=== PATIENT | male | born 1945 | race Caucasian/White ===

== ENCOUNTER 2021-08-12 08:19 | Day surgery (SDC) | payer MEDICARE, SELFPAY ==
--- NOTE | 2021-08-12 | LES_PTH ---
PATIENT: SERENA ARMANDO LOC: [facility] [place] U#:[id number] AGE/SX: 75/M ROOM: RE08/12/[address]: Dr. Kerwin Tamayo MD : [id number] BED: DIS: 08/12/2021 SPEC #: [id number] RECD: 08/12/21 10:46 STATUS: MILLI RELinda #: [id number] CHRISTAL: 08/12/21 00:[address]: Kerwin Tamayo DEPT: SURGICAL PATHOLOGY RECD BY: Lizzette Arteaga ENTERED: 08/12/21 11:40 SP TYPE: Lesion OTHR DR: Dr. Tj Mirza MD Tissues: Skin of external ear, NOS Procedures: Frozen Section (charge) Surgery Specimen Level IV HEADER OPERATION: Excision ear lesion PRE-OP DIAGNOSIS: Cutaneous squamous cell carcinoma TISSUE SUBMITTED: Left ear lesion, frozen section FROZEN SECTION DIAGNOSIS Left ear lesion, biopsy: Actinic keratosis with severe atypia, excised. AM:sarah 08/12/2021 Case has been reviewed in consultation with Dr. Cabral who concurs with the above diagnosis. IDC:SJ MICROSCOPIC DIAGNOSIS Left ear lesion, excisional biopsy: Actinic keratosis with severe atypia with focal verrucous features, completely excised. Solar elastosis. HUDSON:sarah 08/13/2021 MICROSCOPIC DESCRIPTION Slides are reviewed. GROSS DESCRIPTION Received fresh for frozen section consultation labeled with the patient's name is a specimen designated left ear lesion. The specimen consists of a discoid fragment of danielle tissue measuring 1.5 x 1.5 x 0.2 cm. The specimen is oriented. The superior half is inked in black ink and the inferior half is inked in blue ink. The specimen is serially sectioned and totally submitted in one block for frozen section consultation. / AM:sarah 08/12/21 TC:5 CPT: 30576, 15132
--- NOTE | 2021-08-12 08:32 | EKG12_ITS ---
Test Reason : PRE OP Blood Pressure : / mmHG Vent. Rate : 073 BPM Atrial Rate : 073 BPM P-R Int : 146 ms QRS Dur : 074 ms QT Int : 414 ms P-R-T Axes : 079 057 056 degrees QTc Int : 456 ms Normal sinus rhythm Normal ECG No previous ECGs available Confirmed by JACQUI URIBE, VIK ([id number]), development editor BLANCO BOCANEGRA ([id number]) on 08/20/2021 10:07:39 AM Referred By: Edison Tamayo Confirmed By:VIK OSMAN MD
[2021-08-12 09:11] VITALS: BP 179/63; PULSE 71; RESP 18; TEMP 36.9; O2SAT 100; BMI 25.3
[2021-08-12 09:22] LABS: Anion Gap 10 (5-15); BUN 18 mg/dL (7-18); Calcium,Total 9.7 mg/dL (8.5-10.1); Chloride 101 mmol/L (98-107); Creatinine, Serum 1.29 mg/dL (0.70-1.30); EST Glomerular Filtration Rate 57 mL/min (>60); Est Glom Filt Rate - Afr Amer 69 mL/min (>60); Estimated Creatinine Clearance 44.84 ml/min; Glucose 289 mg/dL (74-106); Sodium Level 139 mmol/L (136-145)
[2021-08-12] MEDS: Lactated Ringers 1,000 ML 100 ML IV (09:29)
--- NOTE | 2021-08-12 10:21 | PCM.OPRPT ---
Problems Associated Problem List Diagnoses (1) Nasal congestion: (2) Nasal septal deviation: (3) Acquired deformity of nose: (4) Nasal turbinate hypertrophy: Report of Operation Date of Procedure: 08/12/21 Pre-Operative Diagnosis: 1. nasal congestion 2. nasal septal deviation 3. acquired deformity of nose 4. inferior turbinate hypertrophy, right and left Post-Operative Diagnosis: 1. nasal congestion 2. nasal septal deviation 3. acquired deformity of nose 4. inferior turbinate hypertrophy, right and left Surgery/Procedure Performed:: 1. open septorhinoplasty 2. submucous resection inferior turbinates, right and left Surgeon: Edison Tamayo Type of Anesthesia: General/Supplemental
--- NOTE | 2021-08-12 10:24 | PCM.OPRPT ---
Problems Associated Problem List Diagnoses (1) Squamous cell carcinoma of skin of ear: Report of Operation Date of Procedure: 08/12/21 Pre-Operative Diagnosis: 1. cutaneous squamous cell carcinoma, left ear Post-Operative Diagnosis: 1. cutaneous squamous cell carcinoma, left ear Surgery/Procedure Performed:: 1. excision helical carcinoma, left ear 2 x 1 cm 2. full thickness skin graft, left neck to ear, 2.5 x 1.5 cm Surgeon: Edison Tamayo Type of Anesthesia: General/Supplemental Description of Procedure: on the day of the procedure, after appropriate informed consent was obtained, the patient was brought to the operating room and placed in supine position on the operating table. he was placed under general endotracheal anesthesia by the anesthesiologist. the left ear and neck were prepped and draped in sterile fashion, and injected with lidocaine/epinephrine. a circumferential excision was made around the posterior and superior helical mass with a chehalis blade - this included 3mm margins given the initial biopsies were actinic keratosis with atypia. this was sent to pathology and returned the same diagnosis, fully excised. the defect was roughly 2 x 2 cm. the area around the incision was undermined with an iris scissor. an elliptical incision was made in the low left neck transversely in a crease. a 2.5 x 1.5 cm full thickness skin graft was taken and pie crusted with a 15 blade. the donor site was undermined and closed using 4-0 vicryl and 5-0 fast gut. the graft was sutured into the ear defect using 4-0 vicryl and 5-0 fast gut including several through and through sutures. a bolster was placed. he was awoken from anesthesia and transferred to the PACU in stable condiion.
[2021-08-12] MEDS: Lidocaine 1% /Epi 1:100 (20ml) 20 ML Vial (10:34)
[2021-08-12] MEDS: Mupirocin Ointment 22gm Tube 1 APPLIC (10:58)
--- NOTE | 2021-08-12 11:40 | PCM.DC ---
Discharge Instructions Diet Discharge Diet: No restrictions Activity Discharge Activity: Return to Normal Activity Dressing / Incision Additional Dressing/Incision Instructions:: keep the white bolster dry. mupirocin to neck incision twice daily. Follow Up Care Please Follow Up With: Edison Tamayo MD When: 1 week Test Results: Test results from this visit will be discussed in further detail at your follow-up appointment, if applicable. Discharge Plan Admission Attending Provider: Edison Tamayo Primary Care Provider: Tj Mirza Discharge Orders/Prescriptions Prescriptions: No Action aspirin [Aspir-81] 81 mg Tablet,Delayed Release (Dr/Ec) 81 mg PO DAILY RF: 0 tamsulosin [Flomax] 0.4 mg Capsule 0.4 mg PO QHS RF: 0 amlodipine [Norvasc] 10 mg Tablet 10 mg PO 1200 RF: 0 quinapril-hydrochlorothiazide 20-12.5 mg Tablet 1 tab PO DAILY RF: 0 insulin lispro [Humalog Pen] 100 unit/mL Insulin Pen 0 unit SUBCUT TID RF: 0 Lantus Solostar U-100 Insulin 100 unit/mL (3 mL) Insulin Pen 18 unit SUBCUT QPM RF: 0 Disposition Discharge Orders: Discharge Patient (Routine); Ordered 08/12/21 Ordered By: Dr. Edison Tamayo
[2021-08-12 11:45] VITALS: BP 157/55; BP 179/63; PULSE 79; RESP 16; TEMP 36.1; O2SAT 95
[2021-08-12 12:00] VITALS: BP 153/62; BP 179/63; PULSE 81; RESP 18; O2SAT 93
[2021-08-12 12:15] VITALS: BP 155/58; BP 179/63; PULSE 82; RESP 16; O2SAT 93
[2021-08-12 12:23] VITALS: BP 140/55; BP 179/63; PULSE 79; RESP 18; TEMP 36.1; O2SAT 94
[2021-08-12 12:45] LABS: Bedside Glucose 304 mg/dL (70-110)
[2021-08-12 13:04] VITALS: BP 144/61; BP 179/63; PULSE 75; RESP 16; TEMP 36.4; O2SAT 95
[2021-08-12 16:56] LABS: Bedside Glucose 344 mg/dL (70-110)
== END 2021-08-12 13:16 | disposition home or self-care (01) ==
LOC: SDC 08:24 → AC 08:26
PROVIDERS: PCP Family Medicine; Referring Provider Otolaryngology; Visit Provider Otolaryngology
PROC: (CPT 15004; principal; 2021-08-12 09:45)
DX: L57.0 Actinic keratosis (principal); I10 Essential (primary) hypertension; E11.9 Type 2 diabetes mellitus without complications; F17.210 Nicotine dependence, cigarettes, uncomplicated; Z79.4 Long term (current) use of insulin; Z79.82 Long term (current) use of aspirin; Z79.899 Other long term (current) drug therapy
CPT/HCPCS: 00300; 15004; 15240; 80048; 82962; 88305; 88331; 93005; J7120; J2405

== ENCOUNTER → 2023-10-22 | Outpatient (CLI) | payer MEDICARE, SELFPAY ==
[2023-10-22 17:18] LABS: Hematocrit 38.7 % (40-54); Hemoglobin 12.3 g/dL (13.0-16.5); Mean Corp Hgb Conc 31.8 g/dL (32-36); Mean Corpuscular Hgb 29.6 pg (27.0-32.0); Mean Platelet Vol. 11.6 fl (6.2-12.0); Platelet Count 304 K/mm3 (150-450); RBC Distribution Width SD 44.3 fl (35.1-43.9); Red Blood Count 4.16 M/mm3 (4.6-6.2); White Blood Count 9.1 K/mm3 (4.4-11.0)
[2023-10-22 17:49] LABS: Anion Gap 2 (5-15); BUN 43 mg/dL (7-18); BUN/Creat Ratio 20.9 RATIO (10-20); Calcium,Total 9.1 mg/dL (8.5-10.1); Chloride 111 mmol/L (98-107); Creatinine, Serum 2.06 mg/dL (0.70-1.30); EST Glomerular Filtration Rate 33 mL/min (>60); Est Glom Filt Rate - Afr Amer 40 mL/min (>60); Glucose 120 mg/dL (74-106); Potassium 4.7 mmol/L (3.5-5.1); Sodium Level 140 mmol/L (136-145)
== END | disposition home or self-care (01) ==
LOC: MFPLAB 14:51
PROVIDERS: PCP Family Medicine; Visit Provider Nurse Practitioner Family
DX: I10 Essential (primary) hypertension (principal)
CPT/HCPCS: 36415; 80048; 85027

== ENCOUNTER → 2023-11-17 | Outpatient (CLI) | payer MEDICARE, SELFPAY ==
--- NOTE | 2023-11-17 10:08 | RAD_ITS ---
HISTORY: Productive cough. TECHNIQUE: XR Chest 2 Views. COMPARISON: None. FINDINGS: CARDIOMEDIASTINAL BORDERS: Cardiac silhouette within normal limits in size. Mediastinal contour unremarkable with calcification of the aortic knob. LUNGS: Hyperinflated with mild right apical scarring, suggesting COPD. Mild bilateral lower lobe opacities. PLEURA: Mild pleural effusions. OSSEOUS STRUCTURES: Degenerative change. RAD/Chest PA and Lateral IMPRESSION: Mild pleural effusions with bibasilar atelectasis or pneumonia. Electronically Signed: Sallie Fitzgerald MD at 10:31 EST ,
== END | disposition home or self-care (01) ==
PROVIDERS: PCP Family Medicine; Referring Provider Family Medicine; Visit Provider Family Medicine
DX: R05.8 Other specified cough (principal)
CPT/HCPCS: 71046

== ENCOUNTER → 2023-11-25 | Outpatient (CLI) | payer MEDICARE, SELFPAY ==
--- NOTE | 2023-11-25 12:10 | RAD_ITS ---
HISTORY: productive cough. TECHNIQUE: XR Chest 2 Views. COMPARISON: 11/17/2023. FINDINGS: CARDIOMEDIASTINAL BORDERS: Cardiac silhouette within normal limits in size. Mediastinal contour unremarkable with calcification of the aortic knob. LUNGS: Increased linear opacities in the lung bases. PLEURA: Increased mild pleural effusions. OSSEOUS STRUCTURES: Degenerative change. RAD/Chest PA and Lateral IMPRESSION: Increased mild bilateral pleural effusions with increased bibasilar atelectasis or inflammation. Electronically Signed: Sallie Fitzgerald MD at 13:06 EST ,
--- OUTSIDE RECORDS SUMMARY | 2023-11-25 12:19 | XMS RPT_ITS | CCD ---
Author Name Unknown Address [address] [facility] [address] [place] [address] Organization [facility] Care Team Providers Care Binding End Stitcher Name Role Phone Nancy Mirza Unavailable Unavailable Nancy Mirza Unavailable Unavailable Nancy Mirza Unavailable Unavailable Unavailable Primary Care Provider Nancy Calles Primary Care Provider Nancy Mirza Primary Care Provider Nancy Mirza Primary Care Provider Nancy Hilliard MD Primary Care Provider [phone] Nancy Mirza MD Primary Care Provider Nancy Mirza MD Primary Care Provider Nancy Mirza MD Primary Care Provider Nancy Mirza Unavailable Nancy Mirza MD Primary Care Provider PATY ORTEGA Attending PATY Araiza Referring NANCY Ruelas Primary Care Unavailable Yuki, Dr. Nancy Key Attending Unavaila ian Mirza, Dr. Nancy Key Primary Care Unavaila ble Yuki, Dr. Nancy Key Attending Unavaila ble Yuki, Dr. Nancy Key Primary Care Unavaila ble Yuki, Dr. Nancy Key Attending Unavaila ian Mirza, Dr. Nancy Key Primary Care Unavaila ble Yuki, Dr. Nancy Key Attending Unavaila ian Mirza, Dr. Nancy Key Primary Care Unavaila ble Yuki, Dr. Nancy Key Attending Unavaila ble Yuki, Dr. Nancy Key Primary Care Unavaila ble Tomeleazar, Dr. Nancy Key Primary Care Unavaila ble Tomeleazar, Dr. Nancy Key Attending Unavaila ble Tomeleazar, Dr. Nancy Key Attending Unavaila ble Tomeleazar, Dr. Nancy Key Primary Care Unavaila ble Tomeleazar, Dr. Nancy Key Attending Unavaila ble Tomeleazar, Dr. Nancy Key Primary Care Unavaila ble Yuki, Dr. Nancy Key Primary Care Unavaila ble Tomeleazar, Dr. Nancy Key Attending Unavaila ble Juanito, Dr. Obed العراقي Attending Unavail able Tomeleazar, Dr. Nancy Key Primary Care Unavaila ble Tomeleazar, Dr. Nancy Key Attending Unavaila ble Yuki, Dr. Nancy Key Primary Care Unavaila ian Mirza MD, Nancy Isbell Primary Care Provider OBED ALBERT Attending Unavailable NANCY MIRZA Primary Care Unavailable NANCY MIRZA Primary Care Unavailable NANCY MIRZA Primary Care Unavailable Ryley Jeter MD Primary Care Provider Dr. Obed Albert Attending Unavail able TRISTAN ORTEGA Referring Unava ilable NANCY MIRZA [facility] Care Unavailable NANCY MIRZA Primary Care Unavailable PRAFUL RESENDIZ Admitting Unavailable OBED ALBERT Consulting Unavailable OFE BA Attending Unavailable PATY ORTEGA Attending Unavailab NANCY Shah Primary Care Unavailable MARY YAN Attending Unavailable NANCY MIRZA Primary Care Unavailable MARY YAN Attending Unavailable NANCY MIRZA Primary Care Unavailable NANCY MIRZA Primary Care Unavailable MARY YAN Attending Unavailable PATY ORTEGA Attending Unavailab NANCY hSah Primary Care Unavailable RYLEY JETER Primary Care Unavailable MAYI SMALL Attending Unavailable MARY YAN Referring Unavailable MARY YAN Admitting Unavailable RYLEY JETER Primary Care Unavailable MARY YAN Attending Unavailable PATY ORTEGA Attending Unavailab NANCY Shah Primary Care Unavailable Allergies Allergy Classification Reported Allergen(s) Allergy Type Date of Onset Reaction(s) Facility HMG-CoA Reductase Inhibitors (statins) (3 sources) Hmg-Coa Reductase Inhibitors (Statins) Drug Allergy 6 [facility] (18 sources) Hmg-Coa Reductase Inhibitors (Statins); Translations: [[id number] REDUCTASE INHIBITORS] Propensity to adverse reactions to drug 6 [facility] Work Phone: (6 sources) HMG-CoA reductase inhibitor Propensity to adverse reactions to drug 6 [facility] (11 sources) HMG-CoA reductase inhibitor Propensity to adverse reactions to drug 6 Unknown [facility] (3 sources) predniSONE; Translations: [predniSONE TABS] Drug Allergy 3 [facility] (3 sources) predniSONE; Translations: [PREDNISONE] Drug Allergy 3 [facility] 3 Repository (1 source) ALLERGIES NOT ON FILE; Translations: [ALLERGIES NOT ON FILE] Propensity to adverse reactions (disorder) [facility] Repository Medications Current Medications Medication Drug Class(es) Dates Sig (Normalized) Sig (Original) Acetaminophen (8 sources) Start: 10-11-2023 take 1 tablet by mouth every four hours as needed acetaminophen (Tylenol) tablet 650 mg Completed/Discontinued Medications Medication Drug Class(es) Dates Sig (Normalized) Sig (Original) albuterol 0.83 mg/ml inhalation solution (1 source) beta2-Adrenergic Agonist Start: 10-11-2023 End: 10-11-2023 albuterol 2.5 mg /3 mL (0.083 %) nebulizer solution 2.5 mg azithromycin 250 mg oral tablet (1 source) Macrolide Antimicrobial Start: 10-12-2023 End: 10-13-2023 azithromycin (Zithromax) tablet 500 mg azithromycin (Zithromax) in dextrose 5 % in water (D5W) 250 mL IV 500 mg (2 sources) Start: 10-12-2023 End: 10-12-2023 azithromycin (Zithromax) in dextrose 5 % in water (D5W) 250 mL IV 500 mg Problems Active Problems Problem Classification Problem Date Documented Da te Episodic/Chronic Chronic kidney disease (10 sources) Chronic kidney disease; Translations: [Chronic kidney disease, unspecified] Onset: 07-30-2023 Chronic Chronic kidney disease (2 sources) Chronic kidney disease; Translations: [Chronic kidney disease, stage 3b (CMS/HCC)] Onset: 08-25-2023 Congestive heart failure; nonhypertensive (10 sources) Acute congestive heart failure; Translations: [Heart failure, unspecified] Onset: 10-11-2023 10-11-2023 Chronic Diabetes mellitus with complications (20 sources) Type 1 diabetes mellitus uncontrolled; Translations: [Diabetic neuropathy] Onset: 03-01-2011 05-19-2016 Chronic Diabetes mellitus without complication (20 sources) Type 1 diabetes mellitus; 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] Onset: 03-01-2011 01-09-2016 Chronic Disorders of lipid metabolism (20 sources) Pure hypercholesterolemia ; Translations: [Pure hypercholesterolemia , unspecified] Onset: 03-01-2011 01-09-2016 Chronic Essential hypertension (20 sources) Essential hypertension; Translations: [Essential (primary) hypertension] Onset: 03-01-2011 01-09-2016 Chronic Genitourinary symptoms and ill-defined conditions (4 sources) Proteinuria, unspecified; Translations: [Proteinuria, unspecified] Onset: 03-13-2019 Episodic Hyperplasia of prostate (1 source) Benign prostatic hyperplasia without lower urinary tract symptoms; Translations: [Benign prostatic hyperplasia without lower urinry tract symp] Onset: 07-30-2023 Chronic Occlusion or stenosis of precerebral arteries (20 sources) Bilateral carotid artery stenosis; Translations: [Occlusion and stenosis of bilateral carotid arteries] Onset: 02-18-2021 Chronic Osteoarthritis (3 sources) Arthritis; Translations: [Arthropathy, unspecified, site unspecified] Onset: 08-24-2023 08-24-2023 Chronic Other and ill-defined heart disease (2 sources) Systolic dysfunction; Translations: [Other ill-defined heart diseases] 10-21-2023 Chronic Other and ill-defined heart disease (2 sources) Other ill-defined heart diseases; Translations: [Other ill-defined heart diseases] Onset: 10-21-2023 Chronic Pneumonia (except that caused by tuberculosis or sexually transmitted disease) (3 sources) Infective pneumonia; Translations: [Pneumonia, unspecified organism] Onset: 10-11-2023 10-11-2023 Episodic Respiratory failure; insufficiency; arrest (adult) (3 sources) Acute respiratory failure; Translations: [Acute respiratory failure with hypoxia] Onset: 10-11-2023 10-11-2023 Episodic Spondylosis; intervertebral disc disorders; other back problems (13 sources) Degeneration of lumbar intervertebral disc; Translations: [Degeneration of lumbar or lumbosacral intervertebral disc] Onset: 01-25-2023 08-24-2023 Chronic Thyroid disorders (20 sources) Thyrotoxicosis; Translations: [Thyrotoxicosis, unspecified without thyrotoxic crisis or storm] Onset: 03-01-2011 05-19-2016 Chronic Unclassified (12 sources) Patient encounter status; Translations: [Prostate cancer screening] Onset: 03-01-2011 10-29-2017 Unclassified (2 sources) Screening status; Translations: [Prostate cancer screening] Onset: 03-01-2011 10-29-2017 Viral infection (3 sources) Disease caused by 2019-nCoV; Translations: [COVID-19] Onset: 10-11-2023 Resolved: 10-13-2023 10-11-2023 Episodic Viral infection (2 sources) COVID-19; Translations: [COVID-19] Onset: 10-11-2023 Past or Other Problems Problem Classification Problem Date Documented Da te Episodic/Chronic Other screening for suspected conditions (not mental disorders or infectious disease) (20 sources) Patient encounter status; Translations: [Encounter for screening for malignant neoplasm of prostate] Onset: 03-01-2011 10-29-2017 Episodic Results Test Name Value Interpretation Reference Range Facil ity Vital Signs Date Time Vital Sign Value Performing Clinician Facility 10-21-2023 08:54-0500 Body height 172.7 cm Mayi Small MD Work Phone: [facility] 10-21-2023 08:54-0500 Body mass index (BMI) [Ratio] 22.61 kg/m2 Mayi Small MD Work Phone: [facility] 10-21-2023 08:54-0500 Body weight 67.45 kg Mayi Small MD Work Phone: [facility] 10-21-2023 08:54-0500 Diastolic blood pressure 67 mm[Hg] Mayi Small MD Work Phone: [facility] 10-21-2023 08:54-0500 Heart rate 65 /min Mayi Small MD Work Phone: [facility] 10-21-2023 08:54-0500 SaO2% (BldA) [Mass fraction] 99 % Mayi Small MD Work Phone: [facility] 10-21-2023 08:54-0500 Systolic blood pressure 128 mm[Hg] Mayi Small MD Work Phone: [facility] 10-13-2023 11:55-0500 SaO2% (BldA) [Mass fraction] 92 % Praful Pineda MD Work Phone: [facility] 10-13-2023 10:39-0500 Heart rate 97 /min Praful Pineda MD Work Phone: [facility] 10-13-2023 09:35-0500 Body height 171.5 cm Praful Pineda MD Work Phone: [facility] 10-13-2023 09:35-0500 Body mass index (BMI) [Ratio] 24.38 kg/m2 Praful Pineda MD Work Phone: [facility] 10-13-2023 09:35-0500 Body weight 71.7 kg Praful Pineda MD Work Phone: [facility] 10-12-2023 20:45-0500 Body temperature 98.1 [degF] Praful Pineda MD Work Phone: [facility] 10-12-2023 20:45-0500 Diastolic blood pressure 85 mm[Hg] Praful Pineda MD Work Phone: [facility] 10-12-2023 20:45-0500 Respiratory rate 16 /min Praful Pineda MD Work Phone: [facility] 10-12-2023 20:45-0500 Systolic blood pressure 123 mm[Hg] Praful Pineda MD Work Phone: [facility] 10-11-2023 03:52-0500 Body temperature 37.0 degrees Celsius [facility] Encounters Encounter Date Encounter Type Care Provider Facility Start: 11-02-2023 Orders Only Mary Ramirez MD Work Phone: [facility] Start: 10-21-2023 End: 10-21-2023 ambulatory RYLEY JETER [facility] Start: 10-21-2023 End: 10-21-2023 Office outpatient new 45 minutes Mary Yan MD Work Phone: [facility] Procedures Date Procedure Procedure Detail Performing Clinician Start: 10-13-2023 Glucose [Mass/volume ] in Serum or Plasma NANCY MIRZA Start: 10-13-2023 Glucose quantitative blood xcpt reagent strip Ofe Rivera MD Work Phone: Start: 10-13-2023 BOOTH CATHETER - DISCONTINUE NANCY MIRZA Start: 10-13-2023 ADULT DISCHARGE DIET DA VINadeem MIRZA Start: 10-13-2023 DISCHARGE ACTIVITY ALVINAdarsh MIRZA Start: 10-13-2023 FOLLOW UP PRIMARY PHYSICIAN NANCY MIRZA Start: 10-13-2023 OTHER FOLLOW UP NANCY SANTIZO Start: 10-13-2023 DISCHARGE PATIENT NANCY MIRZA Start: 10-13-2023 Glucose [Mass/volume ] in Serum or Plasma NANCY MIRZA Start: 10-13-2023 Glucose quantitative blood xcpt reagent strip Ofe Rivera MD Work Phone: Start: 10-13-2023 XR CHEST 1 VIEW NANCY SANTIZO Start: 10-13-2023 Radiologic exam ches t single view Ofe Rivera MD Work Phone: Start: 10-13-2023 Basic metabolic 2000 panel - Serum or Plasma NANCY MIRZA Start: 10-13-2023 CBC W Auto Different ial panel - Blood NANCY MIRZA Start: 10-13-2023 Basic metabolic pane l calcium total Ofe Rivera MD Work Phone: Start: 10-13-2023 Glucose [Mass/volume ] in Serum or Plasma NANCY MIRZA Start: 10-13-2023 Glucose quantitative blood xcpt reagent strip Ofe Rivera MD Work Phone: Start: 10-12-2023 Glucose [Mass/volume ] in Serum or Plasma NANCY MIRZA Start: 10-12-2023 Glucose quantitative blood xcpt reagent strip Ofe Rivera MD Work Phone: Start: 10-12-2023 Glucose [Mass/volume ] in Serum or Plasma NANCY MIRZA Start: 10-12-2023 Glucose quantitative blood xcpt reagent strip Ofe Rivera MD Work Phone: Start: 10-12-2023 Glucose [Mass/volume ] in Serum or Plasma NANCY MIRZA Start: 10-12-2023 TRANSFER PATIENT TO NEW UNIT NANCY MIRZA Start: 10-12-2023 Glucose quantitative blood xcpt reagent strip Ofe Rivera MD Work Phone: Start: 10-12-2023 Glucose [Mass/volume ] in Serum or Plasma NANCY MIRZA Start: 10-12-2023 EXTRA TUBES NANCY MENDOZA Start: 10-12-2023 LIGHT BLUE TOP NANCY PALACIOS Start: 10-12-2023 SST TOP NANCY MENDOZA Start: 10-12-2023 Glucose quantitative blood xcpt reagent strip Praful Pineda MD Work Phone: Start: 10-12-2023 Basic metabolic 2000 panel - Serum or Plasma NANCY MIRZA Start: 10-12-2023 CBC W Auto Different ial panel - Blood NANCY MIRZA Start: 10-12-2023 EXTRA TUBES Praful Pineda MD Work Phone: Start: 10-12-2023 LIGHT BLUE TOP Praful Pineda MD Work Phone: Start: 10-12-2023 SST TOP Praful Pineda MD Work Phone: Start: 10-12-2023 Basic metabolic pane l calcium total Praful Pineda MD Work Phone: Start: 10-12-2023 Glucose [Mass/volume ] in Serum or Plasma NANCY CALHOUNDeven Start: 10-12-2023 Glucose quantitative blood xcpt reagent strip Praful Pineda MD Work Phone: Start: 10-11-2023 Glucose [Mass/volume ] in Serum or Plasma NANCY LJDeven Start: 10-11-2023 Glucose [Mass/volume ] in Serum or Plasma NANCY YUKI Start: 10-11-2023 End: 10-11-2023 Glucose quantitative blood xcpt reagent strip Praful Pineda MD Work Phone: Start: 10-11-2023 Glucose [Mass/volume ] in Serum or Plasma NANCY YUKI Start: 10-11-2023 End: 10-11-2023 Glucose quantitative blood xcpt reagent strip Praful Pineda MD Work Phone: Start: 10-11-2023 Glucose [Mass/volume ] in Serum or Plasma NANCY LEDAMERCYDeven Start: 10-11-2023 Glucose quantitative blood xcpt reagent strip Praful Pineda MD Work Phone: Start: 10-11-2023 Glucose quantitative blood xcpt reagent strip Praful Pineda MD Work Phone: Start: 10-11-2023 Glucose [Mass/volume ] in Serum or Plasma NANCY MIRZA Start: 10-11-2023 Glucose [Mass/volume ] in Serum or Plasma NANCY MIRZA Start: 10-11-2023 End: 10-11-2023 Glucose quantitative blood xcpt reagent strip Praful Pineda MD Work Phone: Start: 10-11-2023 POCT GLUCOSE METER ALVIN Nadeem YUKI Start: 10-11-2023 Glucose [Mass/volume ] in Serum or Plasma NANCY LEDAELEAZAR Start: 10-11-2023 Glucose quantitative blood xcpt reagent strip Praful Pineda MD Work Phone: Start: 10-11-2023 End: 10-11-2023 Glucose quantitative blood xcpt reagent strip Ofe Rivera MD Work Phone: Start: 10-11-2023 TRANSTHORACIC ECHO ( TTE) COMPLETE NANCY LEDAELEAZAR Start: 10-11-2023 Glucose [Mass/volume ] in Serum or Plasma NANCY LJDeven Start: 10-11-2023 Echo tthrc r-t 2d w/wom-mode compl spec&colr d Ofe Rivera MD Work Phone: Start: 10-11-2023 End: 10-11-2023 Glucose quantitative blood xcpt reagent strip rPaful Pineda MD Work Phone: Start: 10-11-2023 FULL CODE NANCY MENDOZA Start: 10-11-2023 MEASURE HEIGHT NANCY PALACIOS Start: 10-11-2023 TELEMETRY MONITORING ALONZO MIRZA Start: 10-11-2023 WEIGH PATIENT NANCY SRINIVASAN Start: 10-11-2023 IP CONSULT TO CARDIOLOGY NANCY MIRZA Start: 10-11-2023 IP CONSULT TO FIRST OFFICER NANCY MIRZA Start: 10-11-2023 INITIATE DROPLET PLU S ISOLATION NANCY MIRZA Start: 10-11-2023 ED TO FLOOR BED REQUEST NANCY MIRZA Start: 10-11-2023 ADMIT TO INPATIENT ALVIN TOMPKINSELEAZAR Start: 10-11-2023 MEASURE HEIGHT NANCY PALACIOS Start: 10-11-2023 WEIGH PATIENT NANCY SRINIVASAN Start: 10-11-2023 EXTRA TUBES NANCY MENDOZA Start: 10-11-2023 PROCALCITONIN NANCY LEDA ELEAZAR Start: 10-11-2023 SST TOP NANCY TOMPKINSJonathan MENDOZA Start: 10-11-2023 EXTRA URINE DEY TUBE Nadeem AVINadeem YUKI Start: 10-11-2023 URINALYSIS MICROSCOP IC WITH REFLEX CULTURE NANCY MIRZA Start: 10-11-2023 URINALYSIS WITH REFL EX MICROSCOPIC AND CULTURE NANCY MIRZA Start: 10-11-2023 Glucose [Mass/volume ] in Serum or Plasma NANCY MIRZA Start: 10-11-2023 Bacteria identified in Blood by Culture NANCY MIRZA Start: 10-11-2023 SERIAL TROPONIN, 1 HOUR NANCY MIRZA Start: 10-11-2023 BLOOD GAS ARTERIAL ALVIN Silver YUKI Start: 10-11-2023 XR CHEST 1 VIEW NANCY SANTIZO Start: 10-11-2023 VITAL SIGNS NANCY MENDOZA Start: 10-11-2023 CBC W Auto Different ial panel - Blood NANCY MIRZA Start: 10-11-2023 Comprehensive metabo lic 2000 panel - Serum or Plasma NANCY MIRZA Start: 10-11-2023 D-DIMER, VTE EXCLUSION NANCY MIRZA Start: 10-11-2023 Lactate [Moles/volum e] in Serum or Plasma NANCY MIRZA Start: 10-11-2023 Natriuretic peptide B [Mass/volume] in Blood NANCY MIRZA Start: 10-11-2023 RAINBOW DRAW NANCY MENDOZA Start: 10-11-2023 SST TOP NANCY MENDOZA Start: 10-11-2023 TROPONIN SERIES- (IN ITIAL, 1 HR) NANCY MIRZA Start: 10-11-2023 ECG 12-LEAD NANCY MENDOZA Start: 10-11-2023 INFLUENZA A AND B PCR Nadeem MEJIAD YUKI Start: 10-11-2023 RSV PCR NANCY MENDOZA Start: 10-11-2023 SARS-COV-2 PCR, SYMPTOMATIC NANCY MIRZA Start: 10-11-2023 ED CRITICAL CARE NANCY MIRZA Start: 10-11-2023 EXTRA TUBES Aury Rouse DO Work Phone: Start: 10-11-2023 End: 10-11-2023 Procalcitonin (pct) Praful Pineda MD Work Phone: Start: 10-11-2023 SST TOP Aury Rouse DO Work Phone: Start: 10-11-2023 EXTRA URINE DEY TUBE R ichbeka Rouse DO Work Phone: Start: 10-11-2023 Urinalysis complete W Reflex Culture panel - Urine Aury Rouse DO Work Phone: Start: 10-11-2023 End: 10-11-2023 Culture bacterial blood aerobic w/id isolates Aury Rouse DO Work Phone: Start: 10-11-2023 Gases blood ph direc t nikkie xcpt pulse oximitry Aury Rouse DO Work Phone: Start: 10-11-2023 Radiologic exam ches t single view Aury Rouse DO Work Phone: Start: 10-11-2023 Comprehensive metabo lic panel Aury Rouse DO Work Phone: Start: 10-11-2023 RAINBOW DRAW Aury Rouse DO Work Phone: Start: 10-11-2023 SST TOP Aury Rouse DO Work Phone: Start: 10-11-2023 Troponin I.cardiac p jaylin - Serum or Plasma by High sensitivity method Aury Rouse DO Work Phone: Start: 10-11-2023 Ecg routine ecg w/le ast 12 lds i&r only Aury Rouse DO Work Phone: Start: 10-11-2023 Iadna dna/rna rsv am plified probe technique Aury Rouse DO Work Phone: Start: 10-11-2023 Influenza virus A an d B RNA [Identifier] in Unspecified specimen by ALICE with probe detection Aury Rouse DO Work Phone: Start: 10-11-2023 SARS-CoV-2 (COVID-19 ) RNA [Presence] in Respiratory specimen by ALICE with probe detection Aury Rouse DO Work Phone: Start: 09-27-2023 Comprehensive metabo lic 2000 panel - Serum or Plasma NANCY MIRZA Start: 09-27-2023 Hemoglobin A1c/Hemoglobin.total in Blood NANCY MIRZA Start: 09-27-2023 Lipid panel NANCY MENDOZA Start: 09-27-2023 THYROXINE, FREE NANCY SANTIZO Start: 09-27-2023 Lipid 1996 panel - S laurence or Plasma Praful Pineda MD Work Phone: Start: 09-27-2023 Thyrotropin [Units/v olume] in Serum or Plasma NANCY MIRZA Start: 08-09-2023 ALBUMIN, URINE RANDOM Nadeem MIRZA Start: 08-09-2023 URINALYSIS MICROSCOPIC ONLY NANCY MIRZA Start: 08-09-2023 URINALYSIS WITH REFL EX MICROSCOPIC NANCY MIRZA Start: 08-09-2023 Basic metabolic 2000 panel - Serum or Plasma NANCY MIRZA Start: 08-09-2023 Magnesium [Mass/volu me] in Serum or Plasma NANCY MIRZA Start: 08-09-2023 Phosphate [Mass/volu me] in Serum or Plasma NANCY MIRZA Start: 08-09-2023 PTH, INTACT NANCY MENDOZA Start: 08-09-2023 Urate [Mass/volume] in Serum or Plasma NANCY LEDAELEAZAR Start: 08-09-2023 VITAMIN D 25-HYDROXY,TOTAL NANCY MIRZA Start: 06-21-2023 3 comp foot exam completed Paty Ortega [employer] ADMINISTR[employer] Work Phone: Start: 02-19-2023 3 comp foot exam completed Paty Ortega [employer] ADMINISTR[employer] Work Phone: Start: 02-12-2023 Lipid 1996 panel - S laurence or Plasma Obed Albert Trellie Work Phone: Start: 02-12-2023 Thyrotropin [Units/v olume] in Serum or Plasma Obed Albert Trellie Work Phone: Start: 10-19-2022 3 comp foot exam completed Paty Ortega [employer] ADMINISTRATOR Work Phone: Start: 06-19-2022 3 comp foot exam completed Paty Ortega [employer] ADMINISTRATOR Work Phone: Start: 02-13-2022 3 comp foot exam completed Mary Yan MD Work Phone: Start: 10-13-2021 3 comp foot exam completed Paty Ortega [employer] ADMINISTRATOR Work Phone: Start: 06-20-2021 3 comp foot exam completed Paty Ortega [employer] ADMINISTRATOR Work Phone: Start: 06-11-2021 Microalbumin [Mass/v olume] in Urine by Test strip Paty Ortega [employer] ADMINISTR[employer] Work Phone: Start: 02-26-2021 Duplex scan extracra nial art compl bi study Mary Yan MD Work Phone: Start: 02-18-2021 3 comp foot exam completed Mary Yan MD Work Phone: Start: 10-18-2020 3 comp foot exam completed Paty Ortega Start: 10-14-2020 Ophthalmic examinati on and evaluation Paty Ortega [employer] ADMINISTR[employer] Work Phone: Start: 10-03-2020 Microalbumin [Mass/v olume] in Urine by Test strip Paty Ortega Start: 11-16-2019 3 comp foot exam completed Paty Ortega Start: 07-17-2019 3 comp foot exam completed Paty Ortega Start: 07-04-2019 [object Object] Plan of Treatment Date Care Activity Detail Author Start: 10-13-2024 Creatinine measurement Creatinine Level [facility] Start: 10-13-2024 Potassium measurement Potassium Level [facility] Start: 10-11-2024 Echocardiography Echocardiogram [facility] Start: 09-27-2024 Lipid panel Lipid Panel [facility] Start: 09-27-2024 Thyroid stimulating hormone measurement TSH Level [facility] Start: 08-09-2024 Urine screening for protein Diabetes: Urine Protein Screening [facility] Start: 06-21-2024 Diabetic foot examination [facility] Start: 04-24-2024 End: 04-24-2024 Patient encounter procedure 04/24/2024 9:40 AM EDT Office Visit [facility] [address] [place] [phone] Mayi Small MD [address] [place] [address] [facility] Start: 03-27-2024 Hemoglobin A1c measurement A1C [facility] Start: 02-24-2024 End: 02-24-2024 Patient encounter procedure 02/24/2024 1:45 PM EDT Office Visit [facility] Medical Office [facility] [address] [place] [id number] Madie Albert, STEVE-TRISTAN, DNP [address] [facility] [address] [place] [address] [facility] Medical Office Building Start: 02-20-2024 Diabetic foot examination Foot Exam [facility] Start: 02-18-2024 End: 02-18-2024 Patient encounter procedure 02/18/2024 1:00 PM EDT Office Visit [facility] [place] [address] [place] [phone] Paty Ortega CNP [address] [place] [address] [facility] [place] Start: 02-13-2024 Lipid panel Lipid Panel [facility] Start: 02-13-2024 Thyroid stimulating hormone measurement TSH Level [facility] Start: 01-10-2024 End: 10-08-2024 Comprehensive metabolic 2000 panel - Serum or Plasma Comprehensive Metabolic Panel Lab Routine 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) Expected: 01/10/2024 (Approximate), Expires: 10/08/2024 [facility] Work Phone: Immunizations Immunization Date Immunization Notes Care Provider Fa cility 07-03-2020 zoster vaccine recombinant Obed Albert DO Work Phone: [facility] Work Phone: 04-17-2020 zoster vaccine recombinant Obed Albert DO Work Phone: [facility] Work Phone: 03-31-2019 pneumococcal polysaccharide vaccine, 23 valent Obed Albert DO Work Phone: [facility] Work Phone: 01-31-2018 pneumococcal conjuga te vaccine, 13 valent Obed Albert DO Work Phone: [facility] Work Phone: 11-10-2016 HEMOGLOBIN A1C Ya Parker [facility] Work Phone: Payers Date Payer Category Payer Medicare [id number] 2015 Medicare [id number] 2.16.8 [id number] 2015 Medicare [id number] 2.16.8 40.1.371952.3.249.13 2015 Medicare [id number] 1.2.84 [id number] 2015 Medicare [id number] 1945 Unknown [id number] 2.16. 840.1.240198.3.579.2.903 1943 Unknown [id number] 2.16.8 40.1.982279.3.579.2.1068 1943 Unknown [id number] 2.16.8 40.1.008469.3.579.2.1068 1943 Unknown [id number] 2.16.8 40.1.116020.3.579.2.1068 1943 Unknown [id number] 2.16.8 40.1.001937.3.579.2.1068 1943 Unknown [id number] 2.16.8 40.1.588111.3.579.2.1068 1943 Unknown [id number] 2.16.8 40.1.300126.3.579.2.1068 1943 Unknown [id number] 2.16.8 40.1.470056.3.579.2.1068 1943 Unknown [id number] 2.16.8 40.1.674861.3.579.2.1068 1943 Unknown [id number] 2.16.8 40.1.567554.3.579.2.1068 1943 Unknown [id number] 2.16.8 40.1.589282.3.579.2.1068 1943 Unknown [id number] 2.16.8 40.1.182199.3.579.2.1068 1943 Unknown [id number] 2.16.8 40.1.891732.3.579.2.1243 1943 Unknown [id number] 2.16.8 40.1.702804.3.579.2.5 1943 Unknown [id number] 2.16.84 0.1.557772.3.579.2.1244 1943 Unknown [id number] 2.16. 840.1.500131.3.579.2.356 1943 Unknown [id number] 2.16.84 0.1.674413.3.579.2.1243 1943 Unknown [id number] 2.16. 840.1.710279.3.579.2.903 1943 Unknown [id number] 2.16. 840.1.260287.3.579.2.903 1943 Unknown [id number] 2.16. 840.1.909074.3.579.2.903 1943 Unknown [id number] 2.16. 840.1.193286.3.579.2.903 1943 Unknown [id number] 2.16. 840.1.805076.3.579.2.903 1943 Unknown [id number] 2.16. 840.1.061920.3.579.2.903 1943 Unknown [id number] 2.16. 840.1.472901.3.579.2.903 1943 Unknown [id number] 2.16. 840.1.240175.3.579.2.903 Unknown [employer] Social History Date Type Detail Facility Start: 02-28-2018 End: 10-21-2023 Tobacco smoking status NDIS Current every day smoker [facility] Work Phone: Start: 02-28-2018 End: 10-21-2023 Cigarettes smoked current (pack per day) - Reported [facility] Start: 1945 Sex Assigned At Not on file [employer] Phone: Start: 07-17-2019 End: 10-21-2023 Alcohol intake Current non-drinker of alcohol (finding) [facility] Start: 06-18-2020 End: 10-21-2023 Tobacco use and exposure Never used [facility] Start: 02-03-2022 End: 10-11-2023 Exposure to SARS-CoV-2 (event) Not sure [facility] History of tobacco use Cigarette Smoker [facility] Start: 10-19-2022 End: 10-21-2023 Tobacco use panel [facility] Start: 08-25-2023 End: 10-12-2023 Alcohol intake Lifetime non-drinker (finding) [facility] Work Phone: How hard is it for y ou to pay for the very basics like food, housing, medical care, and heating Not hard at all [facility] In the past 12 month s, was there a time when you were not able to pay the mortgage or rent on time? No [facility] Work Phone: Start: 1945 Sex Assigned At Male [facility] Start: 10-11-2023 Gender identity Identifies as male gender (finding) [facility] Work Phone: Start: 10-11-2023 Sexual orientation Heterosexual (finding) [facility] Work Phone: Medical Equipment Procedure Code Equipment Code Equipment Origin al Text Equipment Identifier Dates [id number] Start: 08-12-2015 End: 03-13-2019 USE DIRECTED FOUR TIMES A DAY FOR INSULIN INJECTION [id number] Start: 09-12-2018 E10.9 Use as directed 4 times per day. [id number] Start: 06-10-2017 use as directed 4 times per day for insulin injection. [id number] Start: 06-17-2017 use as directed 4 times per day for insulin injection. [id number] Start: 05-19-2016 End: 06-17-2017 Use as directed 4 times per day. Dx E10.9 Patient with type 1 DM on insulin with hypoglycemia. Needs to check BG QID; takes insulin QID . [id number] Start: 03-13-2019 Use as directed 4x daily DX code E10.65 . [id number] Start: 10-20-2019 Use as directed 4 times per day. Dx E10.9 Patient with type 1 DM on insulin with hypoglycemia. Needs to check BG QID; takes insulin QID . [id number] Start: 03-15-2020 End: 02-18-2021 Use as directed 4x daily DX code E10.65 . [id number] Start: 10-07-2020 End: 10-08-2021 Use as directed 4 times per day. Dx E10.9 Patient with type 1 DM on insulin with hypoglycemia. Needs to check BG QID; takes insulin QID . [id number] Start: 02-18-2021 End: 02-13-2022 Use as directed 4x daily DX code E10.65 . [id number] Start: 10-09-2021 End: 12-31-2022 Use as directed 4 times per day. Dx E10.9 Patient with type 1 DM on insulin with hypoglycemia. Needs to check BG QID; takes insulin QID . [id number] Start: 02-13-2022 End: 02-19-2023 Use as directed 4x daily DX code E10.65 . [id number] Start: 12-31-2022 Use as directed 4 times per day. Dx E10.9 Patient with type 1 DM on insulin with hypoglycemia. Needs to check BG QID; takes insulin QID . [id number] Start: 02-19-2023 BD Jolynn 2nd Gen Pen Needle 32 gauge x 5/32 needle [id number] Start: 07-01-2023 Use as directed 4 times per day. Dx E10.9 Patient with type 1 DM on insulin with hypoglycemia. Needs to check BG QID; takes insulin QID . [id number] Start: 02-19-2023 Clinical Notes 02-18-2021 to 11-02-2023 Mary Yan MD - 11/02/2023 4:50 PM ESTDay, Mayi Loera MD - 10/21/2023 9:00 AM ESTPatient Ella Gorman RN - 10/13/2023 7:25 PM Adrián Gorman RN - 10/13/2023 7:25 PM EST Note Date & Type Note Facility 11-02-2023 History of Present illness Narrative Patient called and reported that he needs Humalog Rx changed due to formulary change. Rx mailed for Admelog Solostar 15 ml, 11 refills. CD documented in this encounter [facility] 10-21-2023 History of Present illness Narrative General Cardiology New Patient Clinic Consult [facility] Heart [facility] Vascular 10/21/2023 Mayi Small MD [address] [place] [id number] Patient: Serena Fernandes Date of : 1945 (77 y.o.) Referring Provider: Mary Yan MD PCP: Ryley Jeter MD Date of Service: 10/21/2023 Chief Complaint: Initial Visit (Intake) (SOBOE) Assessment and Plan: 1. 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 Dyslipidemia Reviewed indication for statin therapy given diabetes as well as presence of carotid artery disease, patient unable to tolerate, but discussed Zetia, patient willing to try Zetia, will start 10 mg It has been a pleasure caring for this patient. Please don't hesitate to reach out to my office directly with any questions or concerns. Follow-up: Return in about 6 months (around 04/21/2024). Mayi Small MD, [facility] Non-Invasive Cardiology [facility] P:[phone] F:[phone] History of Present Illness: Serena Fernandes is a 77 y.o. man with a past medical history of insulin-dependent diabetes for 30 years, history of tobacco use, recent COVID infection with systolic dysfunction ejection fraction ranging from 35 to 45% who presents today to establish care. Patient states that he was critically ill and hospitalized at [facility], on BiPAP. Prior to hospitalization patient denied any exertional chest pain or pressure or shortness of breath. He denies any physical limitations due to fatigue, chest pain pressure or shortness of breath. He has no orthopnea or paroxysmal nocturnal dyspnea, no abdominal bloating or lower extremity edema. Denies any palpitations dizziness or lightheadedness. Appetite right now is poor but is recovering Objective Review of Systems: All systems were reviewed and are noted to be negative unless otherwise stated in HPI. 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 Home Medications: Current Outpatient Medications: acetaminophen (Tylenol Arthritis Pain) 650 MG CR tablet, Take 1 (one) tablet (650 mg total) by mouth every 8 (eight) hours as needed for pain ., Disp: , Rfl: 0 amLODIPine (NORVASC) 10 MG tablet, Take 1 (one) tablet (10 mg total) by mouth daily ., Disp: , Rfl: aspirin 81 MG EC tablet, Take 1 (one) tablet (81 mg total) by mouth daily ., Disp: , Rfl: blood sugar diagnostic (Contour Next Test Strips) strips, Use as directed 4 times per day. Dx E10.9 Patient with type 1 DM on insulin with hypoglycemia. Needs to check BG QID; takes insulin QID ., Disp: 150 each, Rfl: 11 cholecalciferol, vitamin D3, 5,000 unit Tab tablet, Take 1 (one) tablet (5,000 Units total) by mouth daily ., Disp: , Rfl: insulin glargine (Lantus Solostar U-100 Insulin) 100 unit/mL (3 mL) InPn, Inject 14 (fourteen) Units under the skin nightly ., Disp: 15 mL, Rfl: 11 insulin lispro (HumaLOG KwikPen Insulin) 100 unit/mL InPn, Uses approx. 35 units daily. DX code E 10.65 ., Disp: 15 mL, Rfl: 12 lisinopriL (PRINIVIL,ZESTRIL) 10 MG tablet, Take 1 (one) tablet (10 mg total) by mouth daily In addition to lisinopril /hydrochlorothiazide 20/12.5 tablet . (Patient taking differently: Take 1 (one) tablet (10 mg total) by mouth daily .), Disp: 90 tablet, Rfl: 3 lisinopriL (PRINIVIL,ZESTRIL) 5 MG tablet, Take 1 (one) tablet (5 mg total) by mouth daily ., Disp: , Rfl: metoprolol succinate (TOPROL-XL) 25 MG 24 hr tablet, Take 1 (one) tablet (25 mg total) by mouth daily ., Disp: , Rfl: OXYGEN-AIR DELIVERY SYSTEMS MISC, Inhale 2 L/min See Admin Instructions ., Disp: , Rfl: pen needle, diabetic (BD Ultra-Fine Jolynn Pen Needle) 32 gauge x 5/32 Ndle, Use as directed 4x daily DX code E10.65 ., Disp: 400 each, Rfl: 4 zinc sulfate (ZINCATE) 50 mg zinc (220 mg) capsule, Take 50 mg by mouth daily ., Disp: , Rfl: ezetimibe (Zetia) 10 mg tablet, Take 1 (one) tablet (10 mg total) by mouth daily ., Disp: 30 tablet, Rfl: 11 No current facility-administered medications for this visit. Physical Exam: BP 128/67 (BP Location: Right arm, Patient Position: Sitting, BP Cuff Size: Adult) Pulse 65 Ht 5' 8 Wt 67.4 kg (148 lb 11.2 oz) SpO2 99% BMI 22.61 kg/m Constitutional: Well appearing elderly male,, no acute distress Head: Normocephalic and atraumatic. Eyes: Conjunctivae are normal, no scleral icterus, no corneal arcus Neck: No acanthosis nigricans, no elevated jugular venous distension, no hepatojugular reflux Cardiovascular: Regular rate and rhythm, no murmurs appreciated on today's exam, normal S1 and S2, no rubs or gallops, PMI is midline Pulses: +2 dorsalis pedis pulses bilaterally Musculoskeletal: Normal range of motion. No cyanosis. No peripheral Edema Neurological: AOx3, moving all extremities normally Skin: Skin is warm and dry, normal hair pattern Psychiatric: Normal mood and affect, appropriate conversation Cardiovascular Studies: [facility]chocardiogram [facility], 10/11/2023 moderately decreased ejection fraction estimated at 35% with global hypokinesis. Echocardiogram states the valves were not well-visualized, calculated ejection fraction was noted to be 45% EKG noted sinus tachycardia, concern for anterior infarction Carotid arterial duplex 2022 Conclusions * Right. * Less than 50% stenosis in the right internal carotid artery. * Right vertebral artery is patent with antegrade flow. * No evidence of hemodynamically significant stenosis in the right common carotid, external carotid and subclavian arteries. * Left. * 50-69% stenosis in the left internal carotid artery. * Left vertebral artery is patent with antegrade flow. * Elevated velocity suggestive of stenosis in the left subclavian and external carotid arteries. * No evidence of hemodynamically significant stenosis in the left common carotid artery. * Due to diffuse calcific plaque formation is noted of the left proximal internal and external carotid arteries velocities may be underestimated. Labs: Lab Results Component Value Date BUN 31 06/11/2023 CREATININE 1.85 06/11/2023 Lab Results Component Value Date ALT 12 06/11/2023 AST 16 06/11/2023 ALKPHOS 80 06/11/2023 BILITOT 0.5 06/11/2023 Lab Results Component Value Date WBC 8.50 06/08/2022 HGB 14.2 06/08/2022 HCT 41.9 06/08/2022 EXTMCV 91 06/08/2022 PLT 221 06/08/2022 No results found for: CHOL , LDLCALC , LDLDIRECT , TRIG , HDL Lab Results Component Value Date HGBA1C 7.6 06/11/2023 Lab Results Component Value Date ALT 12 06/11/2023 AST 16 06/11/2023 ALKPHOS 80 06/11/2023 BILITOT 0.5 06/11/2023 The 10-year ASCVD risk score (Dasha SIMS, et al., 2019) is: 54.8% Values used to calculate the score: Age: 77 years Sex: Male Is Non- : No Diabetic: Yes Tobacco smoker: Yes Systolic Blood Pressure: 128 mmHg Is BP treated: Yes HDL Cholesterol: 50 mg/dL Total Cholesterol: 156 mg/dL documented in this encounter [facility] 10-21-2023 Instructions Luisa Easley RN - 10/21/2023 8:54 AM EST How to Contact your Care Team: Provider: Dr. Mayi Small MD Clinic Nurse: Luisa Easley RN REFILLS: When in need for refills please call your care team or the office at [phone]. Please include medication name, pharmacy name, and specify 30-day or 90-day supply. Please check with your pharmacy within 24 hours of request for your refill. You must follow up as directed to continue current refills. Thank you! Patient Instructions So great to see you today! Please do not hesitate to call me if you have any questions! Here are the things we talked about... Consider zetia - 10mg NUCLEAR MEDICINE CARDIAC STRESS TEST THIS IS A 3-4 HOUR TEST Instructions: Appointment Time: , ____/____/____ at ____:____ Prep: DO NOT Take your morning medications. Please bring your morning medications with you. NO CAFFEINE FOR 24 HOURS prior to your test. This includes drinks labeled decaffeinated. Nothing to eat 4 hours prior to your test. A small snack will be provided (crackers, granola bar, juice), or you may bring your own snack for after your stress test. You may drink fluids leading up to your test as long as they are caffeine-free. Decaffeinated drinks still contain some caffeine, please do not drink anything containing caffeine for 24 hours. NO SMOKING the day of your test. Wear comfortable shoes and clothing for exercising. Please wear short sleeves. No metal buttons or snaps. Procedure: Check-in/Registration. Please bring photo ID, insurance cards, and any physician orders. Test explained in detail and IV started. Stress test performed, nuclear medicine will be injected through your IV during the stress test. Stress test recovery period. Heart scan performed. The doctor will review the pictures of your heart and decide if more pictures are needed before you leave. If more are needed you will get another injection of nuclear medicine and this will take an additional hour. The total time for this test is 3-4 hours. There are medications that interfere with this test. You may be instructed to hold medications. If so that will be listed here: _ If you have any further questions please contact your care team or [phone]. documented in this encounter [facility] 10-13-2023 Nurse Note Pt IVs removed intact, home O2 has just been delivered and family given instruction by [employer]. Pt leaving by wheelchair to discharge doors, daughter driving. [facility] 10-13-2023 Nurse Note Pt IVs removed intact, home O2 has just been delivered and family given instruction by [employer]. Pt leaving by wheelchair to discharge doors, daughter driving. Discharge instructions reviewed with pt. Printed and verbal education given on covid, chf, and home oxygen use/safety. Pt verbalized understanding of all instructions. Walker rx written by dr rivera. Awaiting home oxygen set up. Pt is AAO. He is using his call light today when he wants to use the bathroom. He has had loose stools, but less frequent. Pt is alert to situation at this time and able to explain his diagnosis, but still impulsive when moving and unsteady. Pt continues to try and leave the bed and chair without his call light. When asked what he needs or where he wants to go, pt is unable to articulate his motivation except the general desire to move around. Repeated re-education is not working. Answered chair alarm. Pt is becoming increasingly confused and restless in general. He is aware of himself and other people, but is becoming impulsive in getting out of bed or his chair. Pt ambulated to the bathroom, O2 increased to 5L for movement per RT. Pt assisted back to bed, bed alarm activated. Pt is AAO, uses his call light appropriately. Pt currently on RA. Pt c/o weakness in his legs, but is able to sit up at the edge of the bed and walk with a walker to lean on for stability. , Alice ([phone]), called and requesting and update. Update provided. She is Serena's POA and requests in the event of cardiac he receive CPR and life sustaining medications. She is unsure if she wants him intubated and wants more time to think about it. She reported she will be visiting Serena today around 11am. At 0545 pt pushed his call light asking for assistance. Two nurses went into his room to check on him. Patient was found sitting at the edge of the bed, RR was 28-32, HR was 120s - 130s. Patient was very fearful, using accessory muscles to breath. Respiratory therapist was called, patient put back on bi-pap. Patient calmed down, was asked about his code status. Patient stated he has a DNR but is unsure of what it says. He stated his is his medical POA. Patient currently sleeping, HR 112, RR 24. documented in this encounter [facility] Work Phone: 10-13-2023 Nurse Note Discharge instructions reviewed with pt. Printed and verbal education given on covid, chf, and home oxygen use/safety. Pt verbalized understanding of all instructions. Walker rx written by dr rivera. Awaiting home oxygen set up. [facility] 10-13-2023 Hospital Discharge instructions Geni Lynne RN - 10/13/2023 3:38 PM EST Images from the original note were not included. COVID-19 Discharge Instructions About this topic Coronavirus disease 2019 is also known as COVID-19. It is caused by a virus called SARS-associated coronavirus (SARS-CoV-2). The signs of COVID-19 most often start 4 to 5 days after you have been infected. In some people, it can take up to 2 weeks to show signs. Others never show signs of the infection. You may have a cough, fever, shaking chills, and it may be hard to breathe. You may be very tired, have muscle aches, a headache, or sore throat. Some people have an upset stomach or loose stools. Others lose their sense of smell or taste. You may not have these signs all the time and they may come and go while you are sick. The virus spreads easily through droplets when you talk, sneeze, or cough. You can pass the virus to others when you are talking close together, singing, hugging, sharing food, or shaking hands. Doctors believe the germs also survive on surfaces like tables, door handles, and telephones. However, this is not a common way that COVID-19 spreads. You can also spread the infection even if you don t have any symptoms. This is why getting a vaccine is one of the best ways to keep you healthy and slow the spread of the virus. People age 12 and older should also get a booster shot to give them extra protection. Some people have a mild case of COVID-19 and are able to stay at home and away from others until they feel better. Others may need to be in the hospital if they are very sick. Some people with COVID-19 can have some symptoms for weeks or months. People with COVID-19 must isolate themselves. You can start to be around others when your doctor says it is safe to do so. What care is needed at home? Ask your doctor what you need to do when you go home. Make sure you ask questions if you do not understand what the doctor says. If the doctor prescribed medicines to treat COVID-19, be sure to follow all instructions for taking them. Drink lots of water, juice, or broth to replace fluids lost from a fever. You may use cool mist humidifiers to help ease congestion and coughing. Use 2 to 3 pillows to prop yourself up when you lie down to make it easier to breathe and sleep. Do not smoke and do not drink beer, wine, and mixed drinks (alcohol). If you have not had the COVID-19 vaccine and booster, get one after your infection has resolved. This will help lower the chance of passing the infection to others. To lower the chance of passing the infection to others: Stay home for at least 5 days while you recover. Only go out if you need to get medical care. Wear a mask if you must be around others at home or in public. At home, try to stay in a separate room, away from other people and animals. This is called self-isolation. Use a separate bathroom if possible. Wear a mask over your mouth and nose if you are around others. Respirator masks like N95 and KN95 can filter out even very tiny air particles. Whatever type of mask you use, it s important that it fit snugly over your face with no gaps. You can improve the fit by using a mask with an adjustable nose wire, adjusting or knotting the ear loops to make it tighter, or wearing a cloth mask on top of a disposable mask. If other people have to be in the same room or vehicle with you, they should wear a mask also. Practice social distancing. Try to stay at least 6 feet (about 2 meters) from other people. Wash your hands often. Avoid touching your face, especially your mouth, nose, and eyes. Avoid sharing personal items with other people in the household Do not make food for others. Continue to self-isolate until your doctor or nurse tells you it's OK to return to your normal activities. When you can stop self-isolation will depend on if you have a fever and if your symptoms are improving. In some cases, you may need to self-isolate until you have a negative test (showing that the virus is no longer in your body). What follow-up care is needed? Your doctor may ask you to make visits to the office to check on your progress. Be sure to keep these visits. Make sure you wear a mask at these visits. If you can, tell the staff you have COVID-19 ahead of time so they can take extra care to stop the disease from spreading. It may take a few weeks before your health returns to normal. What drugs may be needed? The doctor may order drugs to: Help with breathing Help with fever Help with swelling in your airways and lungs Control coughing Ease a sore throat Help a runny or stuffy nose Will physical activity be limited? You may have to limit your physical activity. Talk to your doctor about the right amount of activity for you. If you have been very sick with COVID-19, it can take some time to get your strength back. Will there be any other care needed? Doctors do not know how long you can pass the virus on to others after you are sick. This is why it is important to stay in a separate room, if possible, when you are sick. For now, doctors are giving general guidelines for you to follow after you have been sick. You can end isolation after 5 days if: You are fever free for 24 hours without taking any drugs to lower your fever. Your symptoms are getting better. You should continue to wear a mask around other people until 10 total days have passed or until you have 2 negative COVID tests 48 hours apart. If you test positive for COVID, you may still be able to pass the infection on to others. Continue to wear a mask and test every 48 hours until you have 2 negative COVID tests. Talk with your doctor about getting a COVID-19 vaccine or booster. What problems could happen? Fluid loss. This is dehydration. Short-term or long-term lung damage Heart problems When do I need to call the doctor? You are having so much trouble breathing that you can only say one or two words at a time. You need to sit upright at all times to be able to breathe and/or cannot lie down. You are very confused or cannot stay awake. Your lips or skin start to turn blue or chavez. You think you might be having a medical emergency. Some examples of medical emergencies are: Severe chest pain. Not able to speak or move normally. You have trouble breathing when talking or sitting still. You have new shortness of breath. You become weak or dizzy. You have very dark urine or do not pass urine for more than 8 hours. You have new or worsening COVID-19 symptoms like: Fever Cough Feeling very tired Shaking chills Headache Trouble swallowing Throwing up Loose stools Reddish purple spots on your fingers or toes Teach Back: Helping You Understand The Teach Back Method helps you understand the information we are giving you. After you talk with the staff, tell them in your own words what you learned. This helps to make sure the staff has described each thing clearly. It also helps to explain things that may have been confusing. Before going home, make sure you can do these: I can tell you about my condition. I can tell you what may help ease my breathing. I can tell you what I can do to help avoid passing the infection to others. I can tell you what I will do if I have trouble breathing; feel sleepy or confused; or my fingertips, fingernails, skin, or lips are blue. Last Reviewed Date 2022-06-18 Consumer Information Use and Disclaimer This generalized information is a limited summary of diagnosis, treatment, and/or medication information. It is not meant to be comprehensive and should be used as a tool to help the user understand and/or assess potential diagnostic and treatment options. It does NOT include all information about conditions, treatments, medications, side effects, or risks that may apply to a specific patient. It is not intended to be medical advice or a substitute for the medical advice, diagnosis, or treatment of a health care provider based on the health care provider's examination and assessment of a patient s specific and unique circumstances. Patients must speak with a health care provider for complete information about their health, medical questions, and treatment options, including any risks or benefits regarding use of medications. This information does not endorse any treatments or medications as safe, effective, or approved for treating a specific patient. [employer] and its affiliates disclaim any warranty or liability relating to this information or the use thereof. The use of this information is governed by the Terms of Use, available at https://www.[employer]/en/k now/mzrrmnce-kejbfqzivpmgf-nnwqk Copyright 2022 [employer] and its affiliates and/or licensors. All rights reserved. Oxygen Therapy Discharge Instructions, Adult About this topic Your body needs oxygen to work the right way. There is some oxygen in the air around us that goes into our lungs and makes normal levels of oxygen in the blood. Some people need more oxygen than what is in the air around us to breathe easier. You may need extra oxygen for a: Short-term problem. This might be an infection, asthma flare up, or lung injury. Long-term problem. These are illnesses like COPD (chronic obstructive pulmonary disease), cystic fibrosis, or emphysema. Heart problem. You may have had a heart attack or have heart failure. You may also have a problem with your heart that you were born with. Oxygen can be: Compressed ? Oxygen is stored in metal tanks under high pressure. The tanks come in different sizes. Some are small enough to carry around with you. Liquid ? Liquid oxygen is very cold. It turns into a gas when you breathe. It takes up less room than other types of oxygen, but costs more. Concentrated ? This uses oxygen already in the air. An electric machine filters out other gases and keeps just the oxygen. If you have this type of oxygen, you need to tell your electric company because your machine must be plugged into a wall socket to work. Oxygen therapy is delivered to the lungs by: Nasal cannula ? This is a plastic tube with two small prongs, which are placed in your nostrils. The long part of the tubing wraps around your ears, like glasses, then goes under your chin. Face mask ? The mask fits over your nose and mouth. A tube attached to the mask is connected to the oxygen tank. You may need a mask if you get a higher rate of oxygen, if you have a stuffy nose, or cannot wear nasal cannula for some reason. What care is needed at home? Ask your doctor what you need to do when you go home. Make sure you ask questions if you do not understand what the doctor says. This way you will know what you need to do. Oxygen is a drug that is ordered by the doctor. Oxygen therapy is measured in one of 2 ways. Some people call this the flow rate or oxygen setting. Your doctor may order an amount of flow like 2 or 3 liters per minute. Or your doctor may order a percent of oxygen like 40% or 50%. Sometimes your doctor will order your oxygen using both of these numbers. Do not change the oxygen settings without talking to your doctor. You may be getting your oxygen through one of many kinds of tubes. Always be sure to keep the breathing tube clean. Make sure it is not pinched or blocked. Check your skin each day under your oxygen tubing or mask. Talk to your doctor if there is redness that does not go away after 15 minutes or a sore. Talk to the business where you get your oxygen supplies. Learn how long it takes to get oxygen delivered. This will help you to know when you need to order more so you do not run out. Make sure you know how to connect and use all of the devices. Ask how often you should change or clean your equipment. Learn if there are filters that need to be replaced or cleaned, and how often. Make sure you have extra supplies and oxygen tanks in case of emergency. There are some important safety factors to keep in mind if you are using oxygen. Never smoke or light flames around the oxygen device. Do not let others smoke around you. Never use the oxygen device near a gas heater or stove. Avoid using lotions and creams with petroleum in them. Be sure to store the oxygen tanks upright. Make sure they cannot fall over. Turn off the oxygen supply when not in use. Have working smoke detectors in the home. What follow-up care is needed? Your doctor may ask you to make visits to the office to check on your progress. Be sure to keep these visits. Do not stop using your oxygen unless told to do so by your doctor. Let people know you are using oxygen in the home. Tell: Your local fire department Your electric, gas, and phone companies. You may be put on a special list to help you in case your power goes out. Your neighbors and family Will physical activity be limited? How much activity you can do may depend on how well your heart and lungs work. If you have trouble breathing, you will have to slow down or stop your activity. Talk with your doctor about what exercises are good for you. Portable oxygen tanks can be used. These work well for activities outside your home. What problems could happen? Dry or stuffy nose Nose bleeds The tube may come off of the oxygen tank by accident Risk of running out of oxygen Risk of tripping over the tube Risk of fire Oxygen tank falls over and causes damage Skin breakdown from the tubing being in one place all the time, such as behind your ears When do I need to call the doctor? Signs of not enough oxygen. These include chest pain; trouble breathing; loss of appetite; trouble sleeping; dizziness; drowsiness; or bluish color around the eyes, lips, and fingernails. Signs of infection. These include a fever of 100.4 F (38 C) or higher, chills, cough, more sputum or change in color of sputum. You do not remember what your oxygen settings are supposed to be You are not able to get the oxygen that is ordered for you Teach Back: Helping You Understand The Teach Back Method helps you understand the information we are giving you. The idea is simple. After talking with the staff, tell them in your own words what you were just told. This helps to make sure the staff has covered each thing clearly. It also helps to explain things that may have been a bit confusing. Before going home, make sure you are able to do these: I can tell you about my condition. I can tell you how I will use my oxygen equipment safely. I can tell you what my flow rate or oxygen settings are. I can tell you what I will do if I have chest pain, trouble breathing or sleeping, feel drowsy, or have a bluish color around my eyes and lips. Last Reviewed Date 2019-12-12 Consumer Information Use and Disclaimer This generalized information is a limited summary of diagnosis, treatment, and/or medication information. It is not meant to be comprehensive and should be used as a tool to help the user understand and/or assess potential diagnostic and treatment options. It does NOT include all information about conditions, treatments, medications, side effects, or risks that may apply to a specific patient. It is not intended to be medical advice or a substitute for the medical advice, diagnosis, or treatment of a health care provider based on the health care provider's examination and assessment of a patient s specific and unique circumstances. Patients must speak with a health care provider for complete information about their health, medical questions, and treatment options, including any risks or benefits regarding use of medications. This information does not endorse any treatments or medications as safe, effective, or approved for treating a specific patient. [employer] and its affiliates disclaim any warranty or liability relating to this information or the use thereof. The use of this information is governed by the Terms of Use, available at https://www.[employer]/en/k now/hcrbspbg-pqlccjalfdrbb-gucyd Copyright 2022 [employer] and its affiliates and/or licensors. All rights reserved. Heart Failure Discharge Instructions, Adult About this topic Heart failure is a condition where your heart does not pump well. Your heart has trouble pumping the right amount of blood throughout your body. Because of this, fluid can back up in your body and your organs may not get as much blood as they need. Heart failure is a long-term problem and will get worse over time. Your doctor will work hard to treat your heart failure and to keep you as healthy as possible. What care is needed at home? Ask your doctor what you need to do when you go home. Make sure you ask questions if you do not understand what the doctor says. This way you will know what you need to do. Get lots of rest. Sleep when you feel tired. Avoid doing tiring activities which can make you more short of breath. Ask your doctor how much exercise you should do every day, such as taking a walk. Limit how much beer, wine, and mixed drinks (alcohol) you drink. Your doctor may ask you to limit the amount of salt in your diet. You may also be asked to limit how much fluid you drink. Try to lose weight if you are overweight. Your doctor or nurse can help. If you smoke, try to quit. Your doctor or nurse can help. Let your doctor know if you get more tired while you do an activity or you are not able to do as much activity as you did before. Be careful that you take your drugs each day as ordered by your doctor. If you cannot afford your drugs, talk to your doctor. Do not stop your drugs if you have side effects. Talk to your doctor about them. Take your drugs even if you feel well. Check your weight each morning and write down your weight in a notebook. This will tell you if you are building up too much fluid. Weigh in the morning after you have passed urine. Weigh yourself with clothes on or off, but do it the same way each day. Make sure your scale is on a hard surface, not on carpet. Your doctor will tell you when you should call based on how much weight you gain in a day or over a week. Take your notebook to your doctor on your next visit. What follow-up care is needed? Your condition needs to be watched closely. Your doctor may ask you to make visits to the office to check on your progress. Be sure to keep these visits. You may need to have other tests. Your doctor's nurse may also call on a regular basis to ask you about your signs and whether your weight has increased. Your doctor may order a heart rehab program for you after you leave the hospital. This is an important part of your care. Share your discharge information with the rehab staff so they can plan a program to help you recover. Let your doctor know if you need help finding a program. You may see a dietitian to help you understand your diet. Some doctors and hospitals have classes to help you learn more about your heart failure and how to manage your symptoms. What drugs may be needed? Often patients will need to take more than one drug. Together, they will help the heart work as well as it can. Do not take any other prescription drugs, dfoh-ryw-osctazr (OTC) drugs, herbals, or diet aids without asking your doctor. The doctor may order drugs to: Help relax blood vessels. This makes it easier for the heart to work and may also lower your blood pressure. These are PASCALE inhibitors, ARBs, and calcium channel blockers. Slow down the heart rate so that it doesn't have to work as hard. These are beta-blockers. Help the heart beat stronger and better. This is digoxin. Get rid of extra salt and water in the body. These are water pills or diuretics. Will physical activity be limited? Talk to your doctor about when you may go back to your normal activities like work, driving, or sex. Unless your doctor tells you to limit your activities, try to be active. Walk, garden, or do something active for 30 minutes or more on most days of the week. Stop activity if you have symptoms like chest pain, shortness of breath, or feel dizzy. What changes to diet are needed? Ask your doctor or practice nurse what diet is best for you. The doctor may tell you to limit your salt and fat or how much fluid you drink. The DASH diet may be helpful. The DASH diet helps to lower blood pressure. This diet includes lots of fruits, vegetables, low-fat dairy foods, and foods that are low in saturated fat, total fat, and cholesterol. Using the DASH diet with a low salt diet may lower blood pressure even more. You will learn to read labels to see how much salt or sodium is in foods. Lowering your salt intake will help control some of your symptoms. When do I need to call the doctor? Activate the emergency medical system right away if you have signs of a heart attack. Call 911 in the [place] or [place]. The sooner treatment begins, the better your chances for recovery. Call for emergency help right away if you have: Signs of heart attack, which may include: Severe chest pain, pressure, or discomfort with: Breathing trouble; sweating; upset stomach; or cold, clammy skin. Pain in your arms, back, or jaw. Worse pain with activity like walking up stairs. Fast or irregular heartbeat. Feeling dizzy, faint, or weak. Call your doctor if: You have so much trouble breathing that you can only say one or two words at a time. You need to sit upright at all times to be able to breathe and/or cannot lie down. You are very tired from working to catch your breath or you are sweating from trying to breathe. You have trouble breathing when talking, sitting still, or with activity. You have wheezing or chest tightness when you are resting. You wake up at night because you can t breathe well. You become very confused or you faint. You have a very fast or irregular heartbeat. You cough more than normal or cough up frothy or pink saliva. You feel very weak, dizzy, or more tired than normal. You need more pillows than normal to sleep. You gain 2 to 3 pounds (0.9 to 1.4 kg) overnight or more than 5 pounds (2.3 kg) in 1 week. You have more swelling than usual, especially in your feet and ankles or in your belly. You feel like your heart is beating very fast. Teach Back: Helping You Understand The Teach Back Method helps you understand the information we are giving you. After you talk with the staff, tell them in your own words what you learned. This helps to make sure the staff has described each thing clearly. It also helps to explain things that may have been confusing. Before going home, make sure you can do these: I can tell you about my condition. I can tell you why I need to weigh myself each day. I can tell you what I will do if I have signs of a heart attack or stroke. Last Reviewed Date 2021-04-03 Consumer Information Use and Disclaimer This generalized information is a limited summary of diagnosis, treatment, and/or medication information. It is not meant to be comprehensive and should be used as a tool to help the user understand and/or assess potential diagnostic and treatment options. It does NOT include all information about conditions, treatments, medications, side effects, or risks that may apply to a specific patient. It is not intended to be medical advice or a substitute for the medical advice, diagnosis, or treatment of a health care provider based on the health care provider's examination and assessment of a patient s specific and unique circumstances. Patients must speak with a health care provider for complete information about their health, medical questions, and treatment options, including any risks or benefits regarding use of medications. This information does not endorse any treatments or medications as safe, effective, or approved for treating a specific patient. [employer] and its affiliates disclaim any warranty or liability relating to this information or the use thereof. The use of this information is governed by the Terms of Use, available at https://www.[employer].com/en/k now/mbgvhjtw-ftsqxptrcppxm-yibdx Copyright 2022 [employer]. and its affiliates and/or licensors. All rights reserved. documented in this encounter [facility] Work Phone: 10-13-2023 Miscellaneous Notes PATIENT: SERENA FERNANDES : 1945 ADMIT DATE: 10/11/2023 1:08 AM DISCH DATE: RESPONDING PROVIDER #: [id number] PROVIDER RESPONSE TEXT: Sepsis with associated respiratory organ dysfunction - Acute hypoxemic respiratory failure CDI QUERY TEXT: [facility]_Sepsis Link Organ Dysfunction Instruction: Based on your assessment of the patient and the clinical information, please provide the requested documentation by clicking on the appropriate radio button and enter any additional information if prompted. Question: Please further clarify if a relationship exists between the Sepsis and acute organ dysfunction When answering this query, please exercise your independent professional judgment. The fact that a question is being asked, does not imply that any particular answer is desired or expected. The patient's clinical indicators include: Clinical Information: 77-year-old white male presented to the ED via EMS from his home secondary to 2-3-day history fever, chills, cough. States that he is also developed some shortness of breath for the past 24 hours. Clinical Indicators: H and p documents Patient was found to have COVID-19 pneumonia associated with sepsis [tachypnea, tachycardia, hypoxia], hypertensive emergency, hyperglycemia, and elevated troponin . [employer] consult documents Acute hypoxemic respiratory failure . Treatment: BiPAP initially then O2 5 liters, Decadron, IV Rocephin and Zithromax. Risk Factors: Covid positive, hypertensive emergency, and DM with blood sugars to 654 Options provided: -- Sepsis with associated respiratory organ dysfunction - Acute hypoxemic respiratory failure -- Sepsis with other associated acute organ dysfunction, Please specify additional information below -- Other - I will add my own diagnosis -- Refer to Clinical Documentation Reviewer Query created by: Jennifer Mejia on 10/13/2023 8:43 AM Electronically signed by: OFE RIVERA MD 10/13/2023 3:05 PM The patient's goals for the shift include The clinical goals for the shift include Blood sugar will return to normal limits by the end of the shift Over the shift, the patient did not make progress toward the following goals. Barriers to progression include acuteness of illness. Recommendations to address these barriers include repeated re-orientation. The clinical goals for the shift include Blood sugar will return to normal limits by the end of the shift Over the shift, Pt tolerated BIPAP well. No signs of respiratory distress. Patient's reviewed. Currently on 5 L of oxygen by nasal cannula, sitting in bed. wants him to be full code with DNI. Continue with current management. documented in this encounter [facility] Work Phone: 10-13-2023 Note Formatting of this n ote might be different from the original. PATIENT: SERENA FERNANDES : 1945 ADMIT DATE: 10/11/2023 1:08 AM DISCH DATE: RESPONDING PROVIDER #: [id number] PROVIDER RESPONSE TEXT: Sepsis with associated respiratory organ dysfunction - Acute hypoxemic respiratory failure CDI QUERY TEXT: [facility]_Sepsis Link Organ Dysfunction Instruction: Based on your assessment of the patient and the clinical information, please provide the requested documentation by clicking on the appropriate radio button and enter any additional information if prompted. Question: Please further clarify if a relationship exists between the Sepsis and acute organ dysfunction When answering this query, please exercise your independent professional judgment. The fact that a question is being asked, does not imply that any particular answer is desired or expected. The patient's clinical indicators include: Clinical Information: 77-year-old white male presented to the ED via EMS from his home secondary to 2-3-day history fever, chills, cough. States that he is also developed some shortness of breath for the past 24 hours. Clinical Indicators: H and p documents Patient was found to have COVID-19 pneumonia associated with sepsis [tachypnea, tachycardia, hypoxia], hypertensive emergency, hyperglycemia, and elevated troponin . [employer] consult documents Acute hypoxemic respiratory failure . Treatment: BiPAP initially then O2 5 liters, Decadron, IV Rocephin and Zithromax. Risk Factors: Covid positive, hypertensive emergency, and DM with blood sugars to 654 Options provided: -- Sepsis with associated respiratory organ dysfunction - Acute hypoxemic respiratory failure -- Sepsis with other associated acute organ dysfunction, Please specify additional information below -- Other - I will add my own diagnosis -- Refer to Clinical Documentation Reviewer Query created by: Jennifer Mejia on 10/13/2023 8:43 AM Electronically signed by: OFE RIVERA MD 10/13/2023 3:05 PM [facility] Work Phone: 10-13-2023 History of Present illness Narrative SW spoke to Pt's via phone, Pt's present w/ Pt in Pt's room at time of phone conversation. Pt reviewed in care rounds this morning. Pt discharged to home. Per Pt/Pt's no additional needs for supports or services at home, SW verbally reviewed IMM w/ Pt & Pt's , declined additional copy as they stated they have the initial IMM they were given at admission. Denied any concerns about meeting Pt's health care needs at home, requested a prescription for a walker they can take with them to DME provider to obtain a walker for Pt while Pt is weak due to symptoms of COVID. SW requested Dr. Rivera send Pt home with prescription for a walker. Plan is for Pt to discharge to home, no need for additional supports or services. No further CT/SW assistance needs anticipated. Physical Therapy Physical Therapy Evaluation Patient Name: Serena Fernandes Today's Date: 10/13/2023 Time Calculation Start Time: 1040 Stop Time: 1100 Time Calculation (min): 20 min Assessment/Plan Skilled PT intervention is indicated due to patient presents with deficits in bed mobility, transfers, gait, stair negotiation, strength, activity tolerance, and safety awareness. Patient mildly weak/deconditioned due to COVID illness. Recommend continued PT to regain strnegth, mobility, activity tolerance. PT Assessment PT Assessment Results: Decreased strength, Decreased endurance, Impaired balance, Decreased mobility Rehab Prognosis: Good Evaluation/Treatment Tolerance: Patient tolerated treatment well End of Session Communication: Bedside nurse End of Session Patient Position: Up in chair, Alarm on IP OR SWING BED PT PLAN Inpatient or Swing Bed: Inpatient PT Plan Treatment/Interventions: Bed mobility, Transfer training, Gait training, Strengthening, Endurance training, Therapeutic exercise, Therapeutic activity, Home exercise program PT Plan: Skilled PT PT Frequency: 5 times per week PT Discharge Recommendations: Low intensity level of continued care Subjective General Visit Information: General Reason for Referral: impaired mobility Referred By: Miguel Past Medical History Relevant to Rehab: COVID PN, DM, HTN, kdney disease, smoker Family/Caregiver Present: No Co-Treatment: OT (co-eval with OT Ho to maximize safety while addressing discipline specific goals) Prior to Session Communication: Bedside nurse (ok to proceed) Patient Position Received: Bed, 3 rail up, Alarm off, not on at start of session General Comment: patient awake in bed, agreeable to PT/OT. patient states he typically doesn't use an AD but does have a FWW and cane at home. states his toes are numb due to his neuropathy. states eh hasn't had any falls. Feels better today than previous days Home Living: Home Living Type of Home: House Lives With: Spouse Home Adaptive Equipment: Cane, Walker rolling or standard Home Layout: One level Home Access: Stairs to enter without rails (1+1 steps) Bathroom Shower/Tub: Walk-in shower Prior Level of Function: Prior Function Per Pt/Caregiver Report Level of [place]: Independent with ADLs and functional transfers, Independent with homemaking with ambulation ADL Assistance: Independent Homemaking Assistance: Independent Ambulatory Assistance: Independent Precautions: Precautions Medical Precautions: Oxygen therapy device and L/min (contact/droplet due to COVID) Vital Signs: Vital Signs SpO2: 93 % (2L following mobility) Patient Position: Sitting Objective Pain: Pain Assessment Pain Assessment: 0-10 Pain Score: 0 - No pain Cognition: Cognition Overall Cognitive Status: Within Functional Limits General Assessments: Activity Tolerance Endurance: Tolerates less than 10 min exercise, no significant change in vital signs Strength Strength Comments: strength grossly 4+/5 LE's Postural Control Postural Control: Within Functional Limits Static Sitting Balance Static Sitting-Balance Support: Feet supported Static Sitting-Level of Assistance: Independent Functional Assessments: Bed Mobility Bed Mobility: Yes Bed Mobility 1 Bed Mobility 1: Supine to sitting Level of Assistance 1: Contact guard Transfers Transfer: Yes Transfer 1 Transfer From 1: Sit to, Stand to Transfer to 1: Stand, Sit Technique 1: Sit to stand, Stand to sit Transfer Device 1: Gait belt Transfer Level of Assistance 1: Contact guard Ambulation/Gait Training Ambulation/Gait Training Performed: Yes Ambulation/Gait Training 1 Surface 1: Level tile Device 1: No device Gait Support Devices: Gait belt Assistance 1: Contact guard Quality of Gait 1: Decreased step length Comments/Distance (ft) 1: 88ft Outcome Measures: [facility] Basic Mobility Turning from your back to your side while in a flat bed without using bedrails: A little Moving from lying on your back to sitting on the side of a flat bed without using bedrails: A little Moving to and from bed to chair (including a wheelchair): A little Standing up from a chair using your arms (e.g. wheelchair or bedside chair): A little To walk in hospital room: A little Climbing 3-5 steps with railing: A little Basic Mobility - Total Score: 18 Encounter Problems Encounter Problems (Active) PT Problem PT Goal 1 Start: 10/13/23 Expected End: 10/26/23 Serena Fernandes will be independent with bed mobility for supine to and from sitting EOB without use of rail PT Goal 2 Start: 10/13/23 Expected End: 10/26/23 Serena Fernandes will transfer sit to and from stand and maintain balance indep PT Goal 3 Start: 10/13/23 Expected End: 10/26/23 Serena Fernandes will ambulate 100 ft level surface, good balance, steady Indep PT Goal 4 Start: 10/13/23 Expected End: 10/26/23 Patient will tolerate 30 min PT session wihtout fatigue Education Documentation No documentation found. Education Comments No comments found. Serena Fernandes is a 77 y.o. male on day 2 of admission presenting with COVID-19. Subjective Patient seen and examined at the bedside this morning He states that he is feeling better at this time He is on minimal oxygen requirements Has not gotten up out of bed yet this morning Feeling much improved and getting close to back to his baseline Objective Vitals 24HR Heart Rate: [80-105] Temp: [36.7 C (98.1 F)-37.9 C (100.2 F)] Resp: [16-27] BP: (123-133)/(70-85) Height: [171.5 cm (5' 7.52 )] Weight: [71.7 kg (158 lb 1.1 oz)] SpO2: [91 %-99 %] Intake/Output last 3 Shifts: Intake/Output Summary (Last 24 hours) at 10/13/2023 1106 Last data filed at 10/13/2023 0623 Gross per 24 hour Intake 450 ml Output 1050 ml Net -600 ml Physical Exam Constitutional: Appearance: Normal appearance. HENT: Head: Normocephalic and atraumatic. Right Ear: External ear normal. Left Ear: External ear normal. Nose: Nose normal. Mouth/Throat: Mouth: Mucous membranes are moist. Pharynx: Oropharynx is clear. Eyes: Extraocular Movements: Extraocular movements intact. Conjunctiva/sclera: Conjunctivae normal. Pupils: Pupils are equal, round, and reactive to light. Cardiovascular: Rate and Rhythm: Normal rate and regular rhythm. Pulmonary: Effort: Pulmonary effort is normal. Breath sounds: Rhonchi present. Comments: Cough present Abdominal: General: Abdomen is flat. Palpations: Abdomen is soft. Skin: General: Skin is warm and dry. Neurological: General: No focal deficit present. Mental Status: He is alert and oriented to person, place, and time. Psychiatric: Mood and Affect: Mood normal. Behavior: Behavior normal. Relevant Results Assessment/Plan This patient currently has cardiac telemetry ordered; if you would like to modify or discontinue the telemetry order, click here to go to the orders activity to modify/discontinue the order. Scheduled medications amLODIPine, 10 mg, oral, Daily aspirin, 324 mg, oral, Daily Or aspirin, 150 mg, rectal, Daily azithromycin, 500 mg, oral, q24h budesonide, 0.25 mg, nebulization, BID cefTRIAXone, 2 g, intravenous, q24h cholecalciferol, 5,000 Units, oral, Daily dexAMETHasone, 6 mg, oral, Daily empagliflozin, 10 mg, oral, Daily ezetimibe, 10 mg, oral, Nightly heparin, 5,000 Units, subcutaneous, q8h hydroCHLOROthiazide, 12.5 mg, oral, Daily insulin glargine, 20 Units, subcutaneous, Daily before breakfast insulin lispro, 0-15 Units, subcutaneous, TID with meals ipratropium-albuteroL, 3 mL, nebulization, 4x daily lisinopril, 5 mg, oral, Daily metoprolol succinate XL, 25 mg, oral, Daily nicotine, 1 patch, transdermal, Daily perflutren protein A microsphere, 0.5 mL, intravenous, Once in imaging sulfur hexafluoride microsphr, 2 mL, intravenous, Once in imaging tamsulosin, 0.4 mg, oral, Daily zinc sulfate, 50 mg of elemental zinc, oral, Daily Continuous medications PRN medications PRN medications: acetaminophen OR acetaminophen OR acetaminophen, dextrose 10 % in water (D10W), dextrose, glucagon, LORazepam, magnesium hydroxide, ondansetron ODT OR ondansetron, oxygen Principal Problem: COVID-19 Acute hypoxemic respiratory failure: Clinically improving COVID-19 pneumonia Bilateral infiltrates Chronic kidney disease stage III appears with baseline creatinine about 1.6-1.9 Acute renal failure secondary to acute illness and also likely secondary to medications Diabetes mellitus with hyperglycemia Shortness of breath Hypertension Nicotine abuse Systolic congestive heart failure with ejection fraction of 35% Global hypokinesia of the left ventricle Plan: From the respiratory standpoint he is looking pretty good I have asked Leda our respiratory therapist to walk him and see what kind of oxygen requirements he will need His renal function is worsened. This is likely secondary at the beginning to his acute illness and now he has SGLT2 inhibitor started which has a very high likelihood of worsening kidney function and about 33% of cases this is likely contributing He can continue the SGLT2 inhibitor but this will need to be watched closely He is currently on lisinopril amlodipine hydrochlorothiazide and a beta-deepali We will have to also watch the hydrochlorothiazide closely As an outpatient he had hydrochlorothiazide listed twice From my standpoint he can be discharged for follow-up as an outpatient He likely will need oxygen going forward at least for a short period of time and then will need close follow-up as an outpatient Please call with any further issues or needs I will discontinue IV antibiotics Steroids can be stopped as well Obed Albert DO Occupational Therapy Evaluation Patient Name: Serena Fernandes Today's Date: 10/13/2023 Time Calculation Start Time: 1039 Stop Time: 1059 Time Calculation (min): 20 min Assessment: OT Assessment: Pt is 77 year old male admitted for COVID. Pt requiring increased assistance compared to baseline. Pt would benefit from skilled OT during hopsital stay to address goals. Prognosis: Good Evaluation/Treatment Tolerance: Patient tolerated treatment well End of Session Communication: Bedside nurse End of Session Patient Position: Up in chair, Alarm on OT Assessment Results: Decreased ADL status, Decreased upper extremity strength, Decreased safe judgment during ADL, Decreased functional mobility, Decreased IADLs Prognosis: Good Evaluation/Treatment Tolerance: Patient tolerated treatment well Plan: Treatment Interventions: ADL retraining, Functional transfer training, UE strengthening/ROM, Endurance training, Compensatory technique education OT Frequency: 3 times per week OT Discharge Recommendations: Low intensity level of continued care OT Recommended Transfer Status: Assist of 1 Treatment Interventions: ADL retraining, Functional transfer training, UE strengthening/ROM, Endurance training, Compensatory technique education Subjective Current Problem: 1. COVID-19 2. Acute respiratory failure with hypoxia (CMS/HCC) 3. Acute congestive heart failure, unspecified heart failure type (CMS/HCC) Transthoracic Echo (TTE) Complete Transthoracic Echo (TTE) Complete 4. Pneumonia of both lungs due to infectious organism, unspecified part of lung 5. Abnormal electrocardiogram (ECG) (EKG) Transthoracic Echo (TTE) Complete Transthoracic Echo (TTE) Complete 6. Acute on chronic systolic (congestive) heart failure (CMS/HCC) Transthoracic Echo (TTE) Complete General: General Reason for Referral: Covid Referred By: Miguel Past Medical History Relevant to Rehab: Tobacco use, DM, neuropathy, HTN, CKD, arthritis Family/Caregiver Present: No Co-Treatment: PT Co-Treatment Reason: to optimize mobility and safety while focusing on discipline specific goals Prior to Session Communication: Bedside nurse Patient Position Received: Bed, 3 rail up, Alarm off, not on at start of session General Comment: Pt supine with HOB elevated upon arrival. Cleared for OT. RN reported pt currently on 1L O2, recommended increased to 2L with exertion. Pt agreeable to work with therapy. Precautions: Medical Precautions: Oxygen therapy device and L/min, Fall precautions Precautions Comment: COVID + Vital Signs: Heart Rate: 97 SpO2: 95 % (2L) Pain: Pain Assessment Pain Assessment: 0-10 Pain Score: 0 - No pain Objective Cognition: Overall Cognitive Status: Within Functional Limits Orientation Level: Oriented X4 Home Living: Type of Home: House Lives With: Spouse Home Adaptive Equipment: Walker rolling or standard, Cane Home Layout: One level, Laundry main level (+basement) Home Access: Stairs to enter without rails Entrance Stairs-Number of Steps: 1+1 Bathroom Shower/Tub: Walk-in shower, Tub only Bathroom Toilet: Standard Bathroom Equipment: None Prior Function: Level of [place]: Independent with ADLs and functional transfers, Independent with homemaking with ambulation ADL Assistance: Independent Homemaking Assistance: Independent Ambulatory Assistance: Independent 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) Hand Dominance: Right Prior Function Comments: (+) fall, 1 fall in shower within last 3 months IADL History: IADL Comments: (+) drive; Spouse and pt share household tasks including cooking and cleaning ADL: Eating Assistance: Independent Grooming Assistance: Stand by (Contact guard) Grooming Deficit: (Anticipated) Bathing Assistance: Minimal Bathing Deficit: (Anticipated) UE Dressing Assistance: Minimal UE Dressing Deficit: (Anticipated) LE Dressing Assistance: Minimal LE Dressing Deficit: (Anticipated) Toileting Assistance with Device: Minimal Toileting Deficit: (Anticipated) Functional Assistance: (Contact guard) Activity Tolerance: Endurance: Tolerates less than 10 min exercise, no significant change in vital signs Activity Tolerance Comments: sit>stand from EOB, functional mobility without AD requiring CGA for household distance. No dizziness or SOB with exertion. Bed Mobility/Transfers: Bed Mobility Bed Mobility: Yes Bed Mobility 1 Bed Mobility 1: Supine to sitting Level of Assistance 1: Contact guard Transfers Transfer: Yes Transfer 1 Transfer From 1: Sit to, Stand to Transfer to 1: Sit, Stand Technique 1: Sit to stand, Stand to sit Transfer Device 1: Gait belt Transfer Level of Assistance 1: Contact guard, Minimal verbal cues Sitting Balance: Static Sitting Balance Static Sitting-Balance Support: No upper extremity supported Static Sitting-Level of Assistance: Close supervision Dynamic Sitting Balance Dynamic Sitting-Balance Support: No upper extremity supported Dynamic Sitting-Balance: (Contact guard) Standing Balance: Static Standing Balance Static Standing-Balance Support: No upper extremity supported Static Standing-Level of Assistance: Contact guard Dynamic Standing Balance Dynamic Standing-Balance Support: No upper extremity supported Dynamic Standing-Balance: (Contact guard) Modalities: Vision:Vision - Basic Assessment Current Vision: No visual deficits Sensation: Sensation Comment: Numbness at baseline in B feet 2/2 neuropathy Strength: Strength Comments: BUE grossly 4/5 Perception: Coordination: Hand Function: Gross Grasp: Functional Coordination: Functional Outcome Measures:[facility] Daily Activity Putting on and taking off regular lower body clothing: A little Bathing (including washing, rinsing, drying): A little Putting on and taking off regular upper body clothing: A little Toileting, which includes using toilet, bedpan or urinal: A little Taking care of personal grooming such as brushing teeth: A little Eating Meals: None Daily Activity - Total Score: 19 Education Documentation ADL Training, taught by Ho Hobson OT at 10/13/2023 1:05 PM. Learner: Patient Readiness: Acceptance Method: Explanation Response: Verbalizes Understanding Education Comments No comments found. OP EDUCATION: Goals: Encounter Problems Encounter Problems (Active) ADLs Patient will perform UB and LB bathing with modified independent level of assistance. (Progressing) Start: 10/13/23 Expected End: 10/27/23 Patient with complete lower body dressing with modified independent level of assistance with PRN adaptive equipment (Progressing) Start: 10/13/23 Expected End: 10/27/23 Patient will complete daily grooming tasks with modified independent level of assistance and PRN adaptive equipment (Progressing) Start: 10/13/23 Expected End: 10/27/23 Patient will complete toileting including hygiene clothing management/hygiene with modified independent level of assistance. (Progressing) Start: 10/13/23 Expected End: 10/27/23 TRANSFERS Patient will complete functional transfers with least restrictive device with modified independent level of assistance. (Progressing) Start: 10/13/23 Expected End: 10/27/23 Subjective Data: Patient examined and denies any chest pain/pressure/discomfort, palpitations, worsening SOB, dizziness, or lower extremity edema. He does not currently follow with a Photograph Inspector. Overnight Events: None Objective Data: Last Recorded Vitals: Vitals: 10/12/23 2310 10/13/23 0623 10/13/23 0700 10/13/23 0935 BP: BP Location: Patient Position: Pulse: Resp: Temp: TempSrc: SpO2: 96% 95% 93% Weight: 71.7 kg (158 lb 1.1 oz) Height: 1.715 m (5' 7.52 ) Last Labs: CBC - 10/13/2023: 4:40 AM 17.8 12.4 153 36.4 CMP - 10/13/2023: 4:40 AM 8.3 6.3 18 --- 0.4 3.2 3.8 13 83 PTT - No results in last year. _ _ _ TROPHS Date/Time Value Ref Range Status 10/11/2023 02:45 AM 354 0 - 20 ng/L Final Comment: Previous result verified on 10/11/2023 0209 on specimen/case [id number] called with component [facility] for procedure Troponin I, High Sensitivity, Initial with value 102 ng/L. 10/11/2023 01:21 AM 102 0 - 20 ng/L Final BNP Date/Time Value Ref Range Status 10/11/2023 01:21 AM 251 0 - 99 pg/mL Final HGBA1C Date/Time Value Ref Range Status 09/27/2023 09:54 AM 7.4 see below % Final 06/11/2023 10:32 AM 7.6 % Final Comment: Diagnosis of Diabetes-Adults Non-Diabetic: < or = 5.6% Increased risk for developing diabetes: 5.7-6.4% Diagnostic of diabetes: > or = 6.5% . Monitoring of Diabetes Age (y) Therapeutic Goal (%) Adults: >18 <7.0 Pediatrics: 13-18 <7.5 7-12 <8.0 0- 6 7.5-8.5 [employer]. Diabetes Care 33(S1), Nov 2009. 02/12/2023 08:57 AM 7.7 % Final Comment: Diagnosis of Diabetes-Adults Non-Diabetic: < or = 5.6% Increased risk for developing diabetes: 5.7-6.4% Diagnostic of diabetes: > or = 6.5% . Monitoring of Diabetes Age (y) Therapeutic Goal (%) Adults: >18 <7.0 Pediatrics: 13-18 <7.5 7-12 <8.0 0- 6 7.5-8.5 [employer]. Diabetes Care 33(S1), Nov 2009. LDLCALC Date/Time Value Ref Range Status 09/27/2023 09:54 AM 93 <=99 mg/dL Final Comment: Near Borderline AGE Desirable Optimal High High Very High 0-19 Y 0 - 109 --- 110-129 >/= 130 ---- 20-24 Y 0 - 119 --- 120-159 >/= 160 ---- >24 Y 0 - 99 100-129 130-159 160-189 >/=190 VLDL Date/Time Value Ref Range Status 09/27/2023 09:54 AM 13 0 - 40 mg/dL Final 02/12/2023 08:57 AM 15 0 - 40 mg/dL Final 02/04/2022 10:01 AM 10 0 - 40 mg/dL Final 06/11/2021 01:30 PM 16 0 - 40 mg/dL Final Last I/O: I/O last 3 completed shifts: In: 864.7 (12.1 mL/kg) [I.V.:514.7 (7.2 mL/kg); IV Piggyback:350] Out: 1950 (27.2 mL/kg) [Urine:1950 (0.8 mL/kg/hr)] Weight: 71.7 kg Past Cardiology Tests (Last 3 Years): EKG: ECG 12 Lead Echo: Transthoracic Echo (TTE) Complete 10/11/2023 Ejection Fractions: EF Date/Time Value Ref Range Status 10/11/2023 09:40 AM 44 Cath: No results found for this or any previous visit from the past 1095 days. Stress Test: No results found for this or any previous visit from the past 1095 days. Cardiac Imaging: No results found for this or any previous visit from the past 1095 days. Inpatient Medications: Scheduled medications Medication Dose Route Frequency amLODIPine 10 mg oral Daily aspirin 324 mg oral Daily Or aspirin 150 mg rectal Daily azithromycin 500 mg oral q24h budesonide 0.25 mg nebulization BID cefTRIAXone 2 g intravenous q24h cholecalciferol 5,000 Units oral Daily dexAMETHasone 6 mg oral Daily empagliflozin 10 mg oral Daily heparin 5,000 Units subcutaneous q8h hydroCHLOROthiazide 12.5 mg oral Daily insulin glargine 20 Units subcutaneous Daily before breakfast insulin lispro 0-15 Units subcutaneous TID with meals ipratropium-albuteroL 3 mL nebulization 4x daily lisinopril 5 mg oral Daily metoprolol succinate XL 25 mg oral Daily nicotine 1 patch transdermal Daily perflutren protein A microsphere 0.5 mL intravenous Once in imaging sulfur hexafluoride microsphr 2 mL intravenous Once in imaging tamsulosin 0.4 mg oral Daily zinc sulfate 50 mg of elemental zinc oral Daily PRN medications Medication acetaminophen Or acetaminophen Or acetaminophen dextrose 10 % in water (D10W) dextrose glucagon LORazepam magnesium hydroxide ondansetron ODT Or ondansetron oxygen Continuous Medications Medication Dose Last Rate Physical Exam: General: awake, alert and oriented. No acute distress. Skin: Skin is warm, dry and intact without rashes or lesions. HEENT: normocephalic, atraumatic; conjunctivae are clear without exudates or hemorrhage. Sclera is non-icteric. Eyelids are normal in appearance without swelling or lesions. Hearing intact. Nares are patent bilaterally. Moist mucous membranes. Cardiovascular: heart rate and rhythm are normal. No murmurs, gallops, or rubs are auscultated. S1 and S2 are heard and are of normal intensity. No JVD, no carotid bruits Respiratory: bilateral lung sounds clear to auscultations without rales, rhonchi, or wheezes. 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 Due to active infection, ischemic evaluation is deferred until patient has recovered ACC/AHA Stage C HFrEF: -NYHA Class III -Echo showing moderately decreased EF of 35%. Will rule out ischemic cardiomyopathy once recovered from COVID -Will optimize on GDMT, however, will need to be careful given elevated creatinine of 2.30 and GFR of 28. Continue Jardiance 10mg daily, Toprol xL 25mg daily. Cannot start Entresto at this time given patient is on lisinopril and will need a 3 day washout period. -Daily weights -Cardiac diet -Patient agreeable to follow up with us in the outpatient setting; please set up appointment before discharge Carotid artery disease: -Recent carotid duplex in January showing 50-69% stenosis of the left ICA; continue ASA; patient has allergy to statin. Will start zetia 10mg daily Peripheral IV 10/11/23 20 G Left Antecubital (Active) Site Assessment Clean;Dry;Intact 10/13/23 0632 Dressing Type Transparent 10/13/23 0632 Line Status Saline locked 10/13/23 0632 Dressing Status Clean;Dry 10/13/23 0632 Number of days: 2 Peripheral IV 10/11/23 Left Antecubital (Active) Site Assessment Clean;Dry;Intact 10/13/23 0632 Dressing Type Transparent 10/13/23 0632 Line Status Infusing 10/13/23 0632 Dressing Status Clean;Dry 10/13/23 0632 Number of days: 2 Code Status: Full Code Thank you for allowing me to participate in the care of this patient. Please reach me out if you have any questions or if you need any clarifications regarding the patient's care. CULLEN Huff DNP Home O2 assessment: pt. Placed on room air at rest spo2 89-94%. Pt walked on room air spo2 to 85% after 32 min. Pt placed on 2L NC spo2 stayed at 93% for remainder of walk. Walked for over 7.5 min. For home O2 needs pt requires room air at rest and 2L with activity Nutrition Assessment Note Nutrition Assessment Reason for Assessment Reason for Assessment: Dietitian discretion (IDDM/Hyperglycemia/ICU) History: Food and Nutrient History Energy Intake: Poor < 50 % Food and Nutrient History: resident asleep x RD visits; food/fluid preferences obtained by phone by dietary staff to enc po intakes, especially fluids; 06/21 office visit history review of BG, home BG monitoring, meds, labs, weight diet/MD recommendations and will follow up with patient as possible when he feels better/diabetic diet at home noted Vitamin/Herbal Supplement Use: D3 5000U/d, zinc sulfate 50 mg Diet Experience Previously prescribed diets: Previous modified diet Previous Diet / Nutrition Education / Counseling: diabetic diet; Physician diet education/reinforcement noted 06/21/23 Anthropometrics: Height: 171.5 cm (5' 7.52 ) Weight: 71.7 kg (158 lb 1.1 oz) BMI (Calculated): 24.38 Weight Change Weight History / % Weight Change: 71.7kg 10/11; 72.1kg 10/08; 71.7kg 06/21; 72.6kg 02/19 Significant Weight Loss: No IBW/kg (Dietitian Calculated): 68.6 kg Percent of IBW: 103 % Adjusted Body Weight (kg): 71.7 kg Energy Needs: Calculated Energy Needs Using Equations Height: 171.5 cm (5' 7.52 ) Minute Ventilation (L/min): 14.2 L/min Temp: 36.7 C (98.1 F) Estimated Energy Needs Total Energy Estimated Needs (kCal): 2151 kCal Total Estimated Energy Need per Day (kCal/kg): 30 kCal/kg Method for Estimating Needs: 30 kcal/ 71.7 kg actual body weight Estimated Protein Needs Total Protein Estimated Needs (g): 72 g Total Protein Estimated Needs (g/kg): 1 g/kg Type of Protein Needed: oral diet, oral supplements Method for Estimating Needs: 1 g/ 71.7 kg actual body weight ( CKD3-PNA/Covid infection) Estimated Fluid Needs Total Fluid Estimated Needs (mL): 2151 mL Total Fluid Estimated Needs (mL/kg): 30 mL/kg Method for Estimating Needs: 1 ml/kcal/day Nutrition Focused Physical Findings: Subcutaneous Fat Loss Orbital Fat Pads: Defer (patient asleep x 2 visits) Edema Edema: none Edema Location: no edema per admission H& P Nutrition Diagnosis Malnutrition Diagnosis Patient has Malnutrition Diagnosis: No Patient has Nutrition Diagnosis: Yes Nutrition Diagnosis 1: Altered nutrition related to laboratory values Diagnosis Status (1): New Related to (1): PNA/covid infections, leukocytosis, CKD3, IDDM As Evidenced by (1): elevated BG, WBC, BUN/Creat, low eGFR, low calcium Additional Assessment Information (1): baseline creat 1.6-1.9 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; A1C 7.4 09/27, 7.6 /l Nutrition Diagnosis 2: Inadequate energy intake Diagnosis Status (2): New Related to (2): PNA/Covid infections As Evidenced by (2): po intakes <50% Additional Assessment Information (2): fluid intakes <50% of needs; may benefit from oral supplementaion Nutrition Interventions/Recommendations Nutrition Prescription Individualized Nutrition Prescription Provided for : Adult Carb controlled diet, low sodium as ordered; Glucerna carb steady oral supplement B,L,D ( 10 g pro/26 g total carbohydrate/237 ml) Food and/or Nutrient Delivery Interventions Interventions: Meals and snacks, Medical food supplement Meals and Snacks: Carbohydrate-modified diet, Mineral-modified diet Goal: Will consume .50% of therapeutic diet ordered Medical Food Supplement: Commercial beverage Goal: Will consume >75% of commercial supplements Additional Interventions: Offer fluids of preferencs on meal trays to encourage po intakes free fluid Nutrition Counseling Goal: unable to provide at this time ( asleep) Coordination of Nutrition Care by a Nutrition Professional Collaboration and Referral of Nutrition Care: Collaboration by nutrition professional with other providers Nutrition Monitoring and Evaluation Food and Nutrient Related History Fluid Intake: Estimated fluid intake Criteria: increase po fluid intake to >1800 ml/day; I'& O monitoring continue Amount of Food: Estimated amout of food Criteria: Will consume >50% of therapeutic diet Anthropometrics: Body Composition/Growth/Weight History Weight: Measured weight Criteria: Weight maintained +/- 5# per month Biochemical Data, Medical Tests and Procedures Electrolyte and Renal Panel: BUN, Calcium, serum, Chloride, Creatinine, Potassium, Sodium Criteria: Labs WNL Glucose/Endocrine Profile: Glucose, casual, Glucose, fasting Criteria: Labs WNL Nutritional Anemia Profile: Hematocrit, Hemoglobin Criteria: Labs WNL Follow Up Time Spent (min): 65 minutes Last Date of Nutrition Visit: 10/13/23 Nutrition Follow-Up Needed?: Dietitian to reassess per policy Pt reviewed during Care Rounds today and he is not ready for discharge; hospitalist is recommending possible SNF and has ordered PT and OT- eval's not yet completed. SW reviewed chart- pt is becoming confused and anxious today and requiring more oxygen with activity. Attempted to call to discuss the discharge plan- no answer and voicemail left. Care Transitions will continue to follow. TATIANA Jaime Serena Fernandes is a 77 y.o. male on day 1 of admission presenting with COVID-19. Subjective Patient seen and examined at the bedside this morning He is resting comfortably in bed He is able to be weaned down to room air when he is laying still He does require oxygen with exertion as he does dip in his oxygen level with exertion He denies sputum production Otherwise feeling pretty well other than he is fairly anxious Objective Vitals 24HR Heart Rate: [69-111] Temp: [36.1 C (97 F)-37 C (98.6 F)] Resp: [13-29] BP: (95-154)/(59-98) SpO2: [92 %-100 %] Intake/Output last 3 Shifts: Intake/Output Summary (Last 24 hours) at 10/12/2023 1222 Last data filed at 10/12/2023 0309 Gross per 24 hour Intake 414.72 ml Output 900 ml Net -485.28 ml Physical Exam Constitutional: Appearance: Normal appearance. HENT: Head: Normocephalic and atraumatic. Right Ear: External ear normal. Left Ear: External ear normal. Nose: Nose normal. Mouth/Throat: Mouth: Mucous membranes are moist. Pharynx: Oropharynx is clear. Eyes: Extraocular Movements: Extraocular movements intact. Conjunctiva/sclera: Conjunctivae normal. Pupils: Pupils are equal, round, and reactive to light. Cardiovascular: Rate and Rhythm: Normal rate and regular rhythm. Pulmonary: Effort: Pulmonary effort is normal. Breath sounds: Rhonchi present. Comments: Cough present Abdominal: General: Abdomen is flat. Palpations: Abdomen is soft. Skin: General: Skin is warm and dry. Neurological: General: No focal deficit present. Mental Status: He is alert and oriented to person, place, and time. Psychiatric: Mood and Affect: Mood normal. Behavior: Behavior normal. Relevant Results Assessment/Plan This patient currently has cardiac telemetry ordered; if you would like to modify or discontinue the telemetry order, click here to go to the orders activity to modify/discontinue the order. Principal Problem: COVID-19 Acute hypoxemic respiratory failure COVID-19 pneumonia Bilateral infiltrates Leukocytosis Chronic kidney disease stage III appears with baseline creatinine about 1.6-1.9 Acute renal failure secondary to acute illness Diabetes mellitus type 2 with hyperglycemia Shortness of breath Hypertension Nicotine abuse Plan: His procalcitonin level is actually pretty low He is on Rocephin and Zithromax day 2 He does have a significant leukocytosis and with his overall picture we will go ahead and leave antibiotics for at least a couple of days He is on dexamethasone His oxygen requirements are actually improving nicely and without exertion he is pretty much down to room air Does require oxygen with exertion I did discuss with him that he really does not need the BiPAP at this time We will discontinue BiPAP and use oxygen and wean as able He does have some anxiety Appears to be mostly secondary to this hospitalization We will have to watch and follow this closely Transfer to floor Obed Albert DO Subjective Data: Patient reports feeling well, no new adverse events overnight. Patient denies any chest pain, shortness of breath, palpitations, dizziness or syncope. Patient is hemodynamically stable. Overnight Events: None Objective Data: Last Recorded Vitals: Vitals: 10/12/23 0654 10/12/23 0700 10/12/23 0800 10/12/23 1034 BP: (!) 118/96 154/85 BP Location: Patient Position: Pulse: 76 90 Resp: Temp: 36.1 C (97 F) TempSrc: SpO2: 100% 92% 97% 92% Weight: Height: Last Labs: CBC - 10/12/2023: 5:17 AM 20.8 11.8 152 34.5 CMP - 10/12/2023: 5:17 AM 8.2 6.3 18 --- 0.4 3.2 3.8 13 83 PTT - No results in last year. _ _ _ TROPHS Date/Time Value Ref Range Status 10/11/2023 02:45 AM 354 0 - 20 ng/L Final Comment: Previous result verified on 10/11/2023 0209 on specimen/case [id number] called with component [facility] for procedure Troponin I, High Sensitivity, Initial with value 102 ng/L. 10/11/2023 01:21 AM 102 0 - 20 ng/L Final BNP Date/Time Value Ref Range Status 10/11/2023 01:21 AM 251 0 - 99 pg/mL Final HGBA1C Date/Time Value Ref Range Status 09/27/2023 09:54 AM 7.4 see below % Final 06/11/2023 10:32 AM 7.6 % Final Comment: Diagnosis of Diabetes-Adults Non-Diabetic: < or = 5.6% Increased risk for developing diabetes: 5.7-6.4% Diagnostic of diabetes: > or = 6.5% . Monitoring of Diabetes Age (y) Therapeutic Goal (%) Adults: >18 <7.0 Pediatrics: 13-18 <7.5 7-12 <8.0 0- 6 7.5-8.5 [employer]. Diabetes Care 33(S1), Nov 2009. 02/12/2023 08:57 AM 7.7 % Final Comment: Diagnosis of Diabetes-Adults Non-Diabetic: < or = 5.6% Increased risk for developing diabetes: 5.7-6.4% Diagnostic of diabetes: > or = 6.5% . Monitoring of Diabetes Age (y) Therapeutic Goal (%) Adults: >18 <7.0 Pediatrics: 13-18 <7.5 7-12 <8.0 0- 6 7.5-8.5 [employer]. Diabetes Care 33(S1), Nov 2009. LDLCALC Date/Time Value Ref Range Status 09/27/2023 09:54 AM 93 <=99 mg/dL Final Comment: Near Borderline AGE Desirable Optimal High High Very High 0-19 Y 0 - 109 --- 110-129 >/= 130 ---- 20-24 Y 0 - 119 --- 120-159 >/= 160 ---- >24 Y 0 - 99 100-129 130-159 160-189 >/=190 VLDL Date/Time Value Ref Range Status 09/27/2023 09:54 AM 13 0 - 40 mg/dL Final 02/12/2023 08:57 AM 15 0 - 40 mg/dL Final 02/04/2022 10:01 AM 10 0 - 40 mg/dL Final 06/11/2021 01:30 PM 16 0 - 40 mg/dL Final Last I/O: I/O last 3 completed shifts: In: 914.7 (12.8 mL/kg) [I.V.:114.7 (1.6 mL/kg); IV Piggyback:800] Out: 900 (12.6 mL/kg) [Urine:900 (0.3 mL/kg/hr)] Weight: 71.7 kg Past Cardiology Tests (Last 3 Years): EKG: ECG 12 Lead Echo: Transthoracic Echo (TTE) Complete 10/11/2023 Ejection Fractions: EF Date/Time Value Ref Range Status 10/11/2023 09:40 AM 44 Cath: No results found for this or any previous visit from the past 1095 days. Stress Test: No results found for this or any previous visit from the past 1095 days. Cardiac Imaging: No results found for this or any previous visit from the past 1095 days. Inpatient Medications: Scheduled medications Medication Dose Route Frequency amLODIPine 10 mg oral Daily aspirin 324 mg oral Daily Or aspirin 150 mg rectal Daily azithromycin 500 mg intravenous q24h budesonide 0.25 mg nebulization BID cefTRIAXone 2 g intravenous q24h cholecalciferol 5,000 Units oral Daily dexAMETHasone 6 mg oral Daily empagliflozin 10 mg oral Daily heparin 5,000 Units subcutaneous q8h hydroCHLOROthiazide 12.5 mg oral Daily insulin glargine 14 Units subcutaneous Daily before breakfast insulin lispro 0-15 Units subcutaneous TID with meals ipratropium-albuteroL 3 mL nebulization 4x daily lisinopril 10 mg oral Daily metoprolol succinate XL 25 mg oral Daily nicotine 1 patch transdermal Daily perflutren protein A microsphere 0.5 mL intravenous Once in imaging sulfur hexafluoride microsphr 2 mL intravenous Once in imaging tamsulosin 0.4 mg oral Daily zinc sulfate 50 mg of elemental zinc oral Daily PRN medications Medication acetaminophen Or acetaminophen Or acetaminophen dextrose 10 % in water (D10W) dextrose glucagon magnesium hydroxide ondansetron ODT Or ondansetron oxygen Continuous Medications Medication Dose Last Rate Physical Exam: General: alert, oriented and in no acute distress HEENT: NC/AT; EOMI; PERRLA, external ear is normal Neck: supple; trachea midline; no masses; no JVD Chest: Reduced lung sounds b/l. On NC oxygen. CVS: regular rhythm, S1S2 normal, no murmurs Abdomen: Soft, non-tender, non-distension, no organomegaly Extremities: no clubbing/cyanosis/edema Neuro: Grossly intact Psychiatric: Normal mood and affect Assessment/Plan Mr. Serena Fernandes is a 77 y.o. every day smoker diabetic male being consulted by the Cardiology team for elevated troponin. Patient with past medical history significant for insulin-dependent diabetes, hypertension, diabetic neuropathy, chronic kidney disease with a baseline creatinine around 1.8, arthritis and smoking. Came to ED [facility] on 10/11/2023 complaining of shortness of breath with cough and also having fevers and chills. He states that has been having SOB, cough, fever, chills, weaknoss, headache, body aches for the past 2-3 days. He denies chest pain, palpitations, leg edema, lightheadedness, orthopnea, paroxysmal nocturnal dyspnea or syncope. 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 Troponin. Patient was found to have COVID-19 pneumonia associated with sepsis [tachypnea, tachycardia, hypoxia], hypertensive emergency, hyperglycemia, and elevated troponin peak 354. BNP 251. Was admitted for clinical compensation. Echo (10/11/2023): 1. Left ventricular systolic function is moderately decreased with a 35% estimated ejection fraction. 2. There is global hypokinesis of the left ventricle with minor regional variations. 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 Troponin. - Elevated troponin peak 354 - BNP 251 - Echo (10/11/2023): 1. Left ventricular systolic function is moderately decreased with a 35% estimated ejection fraction. 2. There is global hypokinesis of the left ventricle with minor regional variations. - Troponin elevation is likely attributable to non-ischemic myocardial injury due to myocardial imbalance in oxygen supply/demand secondary to underlying sepsis. However, we cannot rule out ischemia due to Hypertensive Emergency at this point. - Due to the echo findings of reduced LVEF associated with elevated troponins and Hypertensive Emergency, the patient should undergo ischemia test at some point. Would suggest Left Heart Catheterization when clinically compensated ideally prior to discharge. If not possible, should have [facility] as an outpatient. - Due to reduced LVEF, keep Jardiance 10mg daily, Metoprolol succinate 25mg daily. - Please send the patient to our Cardiology clinic upon discharge. # Hypertension - Controlled blood pressure. - Keep home medication: Amlodipine 10mg daily, Lisinopril / hydrochlorothiazide 20/12,5mg daily, . - Patient counseled to keep a healthy lifestyle including low-sodium diet. - Goal of BP < 130/80mmHg. # Diabetes - Keep home medication with Insulin Glargine - ISS # COVID-19 pneumonia associated with sepsis [tachypnea, tachycardia, hypoxia] - Hydration - Keep broad spectrum antibiotics - NC oxygen This critically ill patient continues to be at-risk for clinically significant deterioration / failure due to the above mentioned dysfunctional, unstable organ systems. I have personally identified and managed all complex critical care issues to prevent aforementioned clinical deterioration. Critical care time is spent at bedside and/or the immediate area and has included, but is not limited to, the review of diagnostic tests, labs, radiographs, serial assessments of hemodynamics, respiratory status, ventilatory management, and family updates. Time spent in procedures and teaching are reported separately. Critical care time: 55 minutes Peripheral IV 10/11/23 20 G Left Antecubital (Active) Site Assessment Clean;Dry;Intact 10/12/23 0800 Dressing Status Clean;Dry;Occlusive 10/12/23 0800 Number of days: 1 Peripheral IV 10/11/23 Left Antecubital (Active) Site Assessment Clean;Dry;Intact 10/12/23 08 Dressing Status Clean;Dry;Occlusive 10/12/23 08 Number of days: 1 Code Status: Full Code Tyrone Zimmerman MD Serena Fernandes is a 77 y.o. male on day 1 of admission presenting with COVID-19. Subjective Seen in room, on room air, maintain sats in 92 above. However when exerting, becomes very short of breath. Continues to have some dry cough. No chest pain. No fevers or chills. Feels generally weak. Eating and drinking has not improved yet. Per nursing no other acute events. Objective Last Recorded Vitals BP 154/85 Pulse 90 Temp 36.1 C (97 F) Resp 23 Wt 71.7 kg (158 lb) SpO2 92% Intake/Output last 3 Shifts: Intake/Output Summary (Last 24 hours) at 10/12/2023 1117 Last data filed at 10/12/2023 0309 Gross per 24 hour Intake 414.72 ml Output 900 ml Net -485.28 ml Admission Weight Weight: 71.7 kg (158 lb) (10/11/23 0108) Daily Weight 10/11/23 : 71.7 kg (158 lb) Image Results ECG 12 Lead Sinus tachycardia 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 NON-SPECIFIC T-WAVE CHANGES Abnormal EKG Confirmed by Tyrone Bajwa ([id number]) on 10/11/2023 6:18:47 PM Transthoracic Echo (TTE) [place] [address] [phone], TRANSTHORACIC ECHOCARDIOGRAM REPORT Patient Name: SERENA FERNANDES Reading Physician: [id number] Jose Enrique Molina MD Study Date: 10/11/2023 Ordering Provider: [id number] OFE RIVERA MRN/PID: [id number] Fellow: Nurse: Jana See RN Date of /Age: 2 1945 / 77 years 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 Definity used as a contrast agent for endocardial border definition. Total contrast used for this procedure was 2.50cc mL via IV push. PHYSICIAN INTERPRETATION: Left Ventricle: Left ventricular systolic function is moderately decreased, with an estimated ejection fraction of 35%. There is global hypokinesis of the left ventricle with minor regional variations. The left ventricular cavity size is normal. Left ventricular diastolic filling was indeterminate. Left Atrium: The left atrium is normal in size. Right Ventricle: The right ventricle is normal in size. There is normal right ventricular global systolic function. RV appears to have grossly normal size/systolic function on off-axis/subcostal imaging. Right Atrium: The right atrium is normal in size. Aortic Valve: The aortic valve was not well visualized. There is no evidence of aortic valve regurgitation. Mitral Valve: The mitral valve is abnormal. There is mild mitral valve regurgitation. Calcified mitral annulus; localized nodule on posterior leaflet of mitral valve. Tricuspid Valve: The tricuspid valve is structurally normal. No evidence of tricuspid regurgitation. Pulmonic Valve: The pulmonic valve is not well visualized. The pulmonic valve regurgitation was not well visualized. Pericardium: There is no pericardial effusion noted. Aorta: The aortic root is normal. Systemic Veins: The inferior vena cava appears to be of normal size. There is IVC inspiratory collapse greater than 50%. CONCLUSIONS: 1. Left ventricular systolic function is moderately decreased with a 35% estimated ejection fraction. 2. There is global hypokinesis of the left ventricle with minor regional variations. QUANTITATIVE DATA SUMMARY: 2D MEASUREMENTS: Normal Ranges: Ao Root d: 3.20 cm (2.0-3.7cm) IVSd: 0.86 cm (0.6-1.1cm) LVPWd: 1.08 cm (0.6-1.1cm) LVIDd: 3.70 cm (3.9-5.9cm) LVIDs: 3.01 cm LV Mass Index: 67.4 g/m2 LV % FS 18.5 % LA VOLUME: Normal Ranges: LA Vol A4C: 44.7 ml (22+/-6mL/m2) LA Vol A2C: 44.6 ml LA Vol BP: 46.0 ml LA Vol Index A4C: 24.5ml/m2 LA Vol Index A2C: 24.4 ml/m2 LA Vol Index BP: 25.1 ml/m2 LA Area A4C: 16.7 cm2 LA Area A2C: 16.2 cm2 LA [place] A4C: 5.3 cm LA [place] A2C: 5.0 cm LA Volume Index: 23.9 ml/m2 LA Vol A4C: 43.7 ml LA Vol A2C: 43.3 ml LV SYSTOLIC FUNCTION BY 2D PLANIMETRY (MOD): Normal Ranges: EF-A4C View: 45.6 % (>=55%) EF-A2C View: 40.9 % EF-Biplane: 44.2 % AORTIC VALVE: Normal Ranges: LVOT Diameter: 1.80 cm (1.8-2.4cm) RIGHT VENTRICLE: RV Basal 3.49 cm RV Mid 2.45 cm RV Major 7.8 cm [id number] Jose Enrique Molina MD Electronically signed on 10/11/2023 at 9:43:19 AM Final XR chest 1 view Narrative: Interpreted By: Kahlil Fagan, STUDY: XR CHEST 1 VIEW; 10/11/2023 1:30 am INDICATION: Signs/Symptoms:Cough. COMPARISON: Chest radiograph 11/04/2012 ACCESSION NUMBER(S): [id number] ORDERING CLINICIAN: AURY ROUSE FINDINGS: SUPPORT DEVICES: None. CARDIOMEDIASTINAL SILHOUETTE: Cardiomediastinal silhouette is normal in size and configuration. LUNGS: Diffuse interstitial prominence and scattered hazy opacities. No large pleural effusion or discernible pneumothorax. ABDOMEN: No remarkable upper abdominal findings. BONES: No acute osseous abnormality. Impression: 1. Diffuse interstitial and scattered hazy opacities. These are nonspecific and may represent atypical infectious or inflammatory process or possibly edema in the appropriate clinical setting. Component may also be related to chronic parenchymal changes. Recommend follow-up to resolution. Signed by: Kahlil Fagan 10/11/2023 1:33 AM Dictation workstation: [id number] Physical Exam Constitutional: Appearance: Normal appearance. HENT: Head: Normocephalic and atraumatic. Right Ear: External ear normal. Left Ear: External ear normal. Nose: Nose normal. Mouth/Throat: Mouth: Mucous membranes are moist. Pharynx: Oropharynx is clear. Eyes: Extraocular Movements: Extraocular movements intact. Conjunctiva/sclera: Conjunctivae normal. Pupils: Pupils are equal, round, and reactive to light. Cardiovascular: Rate and Rhythm: Regular rhythm. Pulmonary: Effort: Pulmonary effort is normal. Breath sounds: Good air entry, bibasilar crackles. Comments: Nonlabored. Abdominal: General: Abdomen is flat. Palpations: Abdomen is soft. Skin: General: Skin is warm and dry. Neurological: General: No focal deficit present. Mental Status: He is alert and oriented to person, place, and time. Psychiatric: Mood and Affect: Mood normal. Behavior: Behavior normal. Assessment/Plan This patient currently has cardiac telemetry ordered; if you would like to modify or discontinue the telemetry order, click here to go to the orders activity to modify/discontinue the order. Principal Problem: COVID-19 Acute hypoxemic respiratory failure, improving COVID-19 with secondary bacterial pneumonia acute on chronic systolic congestive heart failure Elevated troponins Chronic kidney disease stage III appears with baseline creatinine about 1.6-1.9 Diabetes mellitus type 2 with hyperglycemia Hypertension Nicotine abuse Plan; Echo reviewed with cardiology, EF 35%, global hypokinesis of left ventricle. Continue with the current diuretics, amlodipine, lisinopril, hydrochlorothiazide. Strict ins and outs. Daily weights. Will set up with cardiology as outpatient. Continue with IV antibiotics, Rocephin and Zithromax. Continue with IV dexamethasone, DuoNebs, oxygen supplement as required. Dc'd insulin drip because of the low blood sugar, started on sliding scale insulin. A1c 7.4 appreciate nib inspector input. Oxygen as tolerated, currently liters. PT, OT consult for generalized weakness. Vitamin D, zinc DVT prophylaxis on heparin. CODE STATUS full. Disposition in 24 to 48 hours. Total time spent 35 minutes. Ofe Rivera MD 10/11/23 4855 Discharge Planning Living Arrangements Spouse/significant other Support Systems Spouse/significant other;Family members;Children Assistance Needed Cane Type of Residence Private residence Number of Stairs to Enter Residence 3 Number of Stairs Within Residence 0 Do you have animals or pets at home? Yes Type of Animals or Pets dog Who is requesting discharge planning? Provider Home or Post Acute Services None Patient expects to be discharged to: Home Does the patient need discharge transport arranged? No Financial Resource Strain How hard is it for you to pay for the very basics like food, housing, medical care, and heating? Not hard Housing Stability In the last 12 months, was there a time when you were not able to pay the mortgage or rent on time? N In the last 12 months, how many places have you lived? 1 In the last 12 months, was there a time when you did not have a steady place to sleep or slept in a senior living (including now)? N Transportation Needs In the past 12 months, has lack of transportation kept you from medical appointments or from getting medications? no In the past 12 months, has lack of transportation kept you from meetings, work, or from getting things needed for daily living? No Patient Choice Provider Choice list and CMS website (https://medicare.gov/care-compare #search) for post-acute Quality and Resource Measure Data were provided and reviewed with: Patient Patient / Family choosing to utilize agency / facility established prior to hospitalization No Spoke with Serena on the phone do to working remote at this point he does not feel he will need HHC but he may need oxygen. He plans to return home with his at discharge to there [address]. He still drives and he ambulates with a cane. No further needs at this time. CT to follow. Consuelo Fischer BSN/RN-TCC documented in this encounter [facility] Work Phone: 10-13-2023 Hospital course Narrative Discharge Diagnosis COVID-19 Acute hypoxemic respiratory failure: Clinically improving COVID-19 pneumonia Bilateral infiltrates Chronic kidney disease stage III appears with baseline creatinine about 1.6-1.9 Acute renal failure secondary to acute illness and also likely secondary to medications Diabetes mellitus with hyperglycemia Shortness of breath Hypertension Nicotine abuse Systolic congestive heart failure with ejection fraction of 35% Global hypokinesia of the left ventricle Issues Requiring Follow-Up Acute hypoxemic respiratory failure: Clinically improving COVID-19 pneumonia Bilateral infiltrates Chronic kidney disease stage III appears with baseline creatinine about 1.6-1.9 Acute renal failure secondary to acute illness and also likely secondary to medications Diabetes mellitus with hyperglycemia Shortness of breath Hypertension Nicotine abuse Systolic congestive heart failure with ejection fraction of 35% Global hypokinesia of the left ventricle Discharge Meds Your medication list START taking these medications Instructions Last Dose Given Next Dose Due cholecalciferol 5,000 Units tablet Commonly known as: Vitamin D-3 Start taking on: October 14, 2023 Take 1 tablet (5,000 Units) by mouth once daily. Do not start before October 14, 2023. empagliflozin 10 mg Commonly known as: Jardiance Start taking on: October 14, 2023 Take 1 tablet (10 mg) by mouth once daily. Do not start before October 14, 2023. ezetimibe 10 mg tablet Commonly known as: Zetia Take 1 tablet (10 mg) by mouth once daily at bedtime. lisinopril 5 mg tablet Start taking on: October 14, 2023 Take 1 tablet (5 mg) by mouth once daily. Do not start before October 14, 2023. metoprolol succinate XL 25 mg 24 hr tablet Commonly known as: Toprol-XL Start taking on: October 14, 2023 Take 1 tablet (25 mg) by mouth once daily. Do not crush or chew. Do not start before October 14, 2023. nicotine 21 mg/24 hr patch Commonly known as: Nicoderm CQ Start taking on: October 14, 2023 Place 1 patch over 24 hours on the skin once daily. Do not start before October 14, 2023. oxygen gas therapy Commonly known as: O2 Inhale 2 L/min continuously. zinc sulfate 220 (50 Zn) MG capsule Commonly known as: Zincate Start taking on: October 14, 2023 Take 1 capsule (50 mg of elemental zinc) by mouth once daily. Do not start before October 14, 2023. CONTINUE taking these medications Instructions Last Dose Given Next Dose Due acetaminophen 500 mg capsule Commonly known as: Tylenol amLODIPine 10 mg tablet Commonly known as: Norvasc BD Jolynn 2nd Gen Pen Needle 32 gauge x 5/32 needle Generic drug: pen needle, diabetic Contour Next Test Strips strip Generic drug: blood sugar diagnostic hydroCHLOROthiazide 12.5 mg tablet Commonly known as: HYDRODiuril insulin glargine 100 unit/mL (3 mL) pen Commonly known as: Lantus insulin lispro 100 unit/mL injection Commonly known as: HumaLOG tamsulosin 0.4 mg 24 hr capsule Commonly known as: Flomax STOP taking these medications lisinopriL-hydrochlorothiazide 20-12.5 mg tablet Where to Get Your Medications These medications were sent to [facility] - [address] [place] [id number] metoprolol succinate XL 25 mg 24 hr tablet These medications were sent to [facility] [address] [place] [address] Hours: 8 AM to 5:30 Mon-Fri, 8 AM to 4 PM Wednesday and Wednesday cholecalciferol 5,000 Units tablet empagliflozin 10 mg ezetimibe 10 mg tablet lisinopril 5 mg tablet nicotine 21 mg/24 hr patch zinc sulfate 220 (50 Zn) MG capsule Information about where to get these medications is not yet available Ask your nurse or doctor about these medications oxygen gas therapy Test Results Pending At Discharge Pending Labs Order Current Status Blood Culture Preliminary result Blood Culture Preliminary result Hospital Course 7 y.o. male Who presented to the emergency room for cough, shortness of breath, fever and chills. On presentation, blood pressure 189/75 and then it became 250/111, heart rate 150s, respiratory rate 35, afebrile, saturation oxygen 89% on room air. Pertinent findings on blood workup; glucose 244, creatinine 1.83, BUN 30, BNP 251 and troponin 102 with repeat of 354 D-dimer 1869. ABG showed a pH of 7.36, pCO2 41 and pO2 of 66. Chest x-ray showed diffuse interstitial and scattered hazy opacities. COVID-19 came back positive. Patient was placed on BiPAP and given in the emergency room azithromycin, ceftriaxone, DuoNebs, dexamethasone 10 mg IV, 0.5 mg IV diazepam, 1.25 mg IV Vasotec, 20 mg IV Lasix, insulin, IV fluids, and 20 mg IV labetalol and then admitted to the medical service for further investigation and management. Patient resting comfortably in his bed now. Reports feeling better. Not as short winded anymore. He has been feeling sick for the past 3 days. Cough is dry. No chest pain. No palpitations. No nausea or vomiting. Appetite has decreased. During hospitalization he was admitted for COVID-19 infection with secondary bacterial pneumonia. He was started on IV dexamethasone, vitamin D and zinc. Supplemental oxygen. Patient improved, currently on 2 L of oxygen as needed especially during sleep. He is being set up with home oxygen. Patient also was sore nib inspector discharged his dexamethasone and antibiotics as cultures seems to be negative. Clinically stable. Patient also had elevated troponin secondary due to above seen by cardiology, Dr. De Dios, started on metoprolol, aspirin initially which which can be changed to 81 mg daily. Jaundice and Zetia also were started. Patient also has seen Dr. Albert, inside sales territory manager for acute on chronic kidney disease secondary due to ill nurse and medications. He will do outpatient follow-up as creatinine stabilized. Patient understands the discharge instructions, medications and follow-up. Pertinent Physical Exam At Time of Discharge Physical Exam Constitutional: Appearance: Normal appearance. HENT: Head: Normocephalic and atraumatic. Right Ear: External ear normal. Left Ear: External ear normal. Nose: Nose normal. Mouth/Throat: Mouth: Mucous membranes are moist. Pharynx: Oropharynx is clear. Eyes: Extraocular Movements: Extraocular movements intact. Conjunctiva/sclera: Conjunctivae normal. Pupils: Pupils are equal, round, and reactive to light. Cardiovascular: Rate and Rhythm: Regular rhythm. Pulmonary: Effort: Pulmonary effort is normal. Breath sounds: Good air entry, no crackles Comments: Nonlabored. Abdominal: General: Abdomen is flat. Palpations: Abdomen is soft. Skin: General: Skin is warm and dry. Neurological: General: No focal deficit present. Mental Status: He is alert and oriented to person, place, and time. Psychiatric: Mood and Affect: Mood normal. Behavior: Behavior normal. Outpatient Follow-Up Future Appointments Date Time Provider Department Center 02/24/2024 1:45 PM Madie Albert, METAL STAMPER-CITRIX ADMINISTRATOR, [facility] [id number] [facility] Dr. Albert, nephrology in [address] De Dios, cardiology in 2 to 4 weeks. Total discharge time 40 minutes. Ofe Rivera MD documented in this encounter [facility] Work Phone: 10-13-2023 Nurse Note Pt is AAO. He is using his call light today when he wants to use the bathroom. He has had loose stools, but less frequent. [facility] Work Phone: 10-12-2023 Nurse Note Pt is alert to situation at this time and able to explain his diagnosis, but still impulsive when moving and unsteady. [facility] Work Phone: 10-12-2023 Nurse Note Pt continues to try and leave the bed and chair without his call light. When asked what he needs or where he wants to go, pt is unable to articulate his motivation except the general desire to move around. Repeated re-education is not working. [facility] Work Phone: 10-12-2023 Nurse Note Answered chair alarm. Pt is becoming increasingly confused and restless in general. He is aware of himself and other people, but is becoming impulsive in getting out of bed or his chair. Pt ambulated to the bathroom, O2 increased to 5L for movement per RT. Pt assisted back to bed, bed alarm activated. [facility] Work Phone: 10-12-2023 Nurse Note Pt is AAO, uses his call light appropriately. Pt currently on RA. Pt c/o weakness in his legs, but is able to sit up at the edge of the bed and walk with a walker to lean on for stability. [facility] Work Phone: 10-12-2023 Plan of care note The patient's goals for the shift include The clinical goals for the shift include Blood sugar will return to normal limits by the end of the shift Over the shift, the patient did not make progress toward the following goals. Barriers to progression include acuteness of illness. Recommendations to address these barriers include repeated re-orientation. [facility] Work Phone: 10-12-2023 Plan of care note The clinical goals for the shift include Blood sugar will return to normal limits by the end of the shift Over the shift, Pt tolerated BIPAP well. No signs of respiratory distress. [facility] 10-11-2023 Consult note Associated Order (s): Inpatient consult to Cardiology Inpatient consult to Cardiology Consult performed by: Tyrone Zimmerman MD Consult ordered by: Praful Pineda MD Reason for consult: elevated troponin History Of Present Illness: Mr. Serena Fernandes is a 77 y.o. every day smoker diabetic male being consulted by the Cardiology team for elevated troponin. Patient with past medical history significant for insulin-dependent diabetes, hypertension, diabetic neuropathy, chronic kidney disease with a baseline creatinine around 1.8, arthritis and smoking. Came to ED [facility] on 10/11/2023 complaining of shortness of breath with cough and also having fevers and chills. He states that has been having SOB, cough, fever, chills, weaknoss, headache, body aches for the past 2-3 days. He denies chest pain, palpitations, leg edema, lightheadedness, orthopnea, paroxysmal nocturnal dyspnea or syncope. 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 Troponin. Patient was found to have COVID-19 pneumonia associated with sepsis [tachypnea, tachycardia, hypoxia], hypertensive emergency, hyperglycemia, and elevated troponin peak 354. BNP 251. Was admitted for clinical compensation. Echo (10/11/2023): 1. Left ventricular systolic function is moderately decreased with a 35% estimated ejection fraction. 2. There is global hypokinesis of the left ventricle with minor regional variations. Last Recorded Vitals: Vitals: 10/11/23 1500 10/11/23 1600 10/11/23 1602 10/11/23 1700 BP: BP Location: Patient Position: Pulse: 93 (!) 111 94 Resp: 18 20 13 Temp: TempSrc: SpO2: 98% 94% 94% 96% Weight: Height: Last Labs: CBC - 10/11/2023: 1:21 AM 10.4 12.0 158 36.7 CMP - 10/11/2023: 1:21 AM 8.5 6.3 18 --- 0.4 3.2 3.8 13 83 PTT - No results in last year. _ _ _ Troponin I, High Sensitivity Date/Time Value Ref Range Status 10/11/2023 02:45 AM 354 (HH) 0 - 20 ng/L Final Comment: Previous result verified on 10/11/2023 0209 on specimen/case [id number] called with component [facility] for procedure Troponin I, High Sensitivity, Initial with value 102 ng/L. 10/11/2023 01:21 AM 102 (HH) 0 - 20 ng/L Final BNP Date/Time Value Ref Range Status 10/11/2023 01:21 AM 251 (H) 0 - 99 pg/mL Final Hemoglobin A1C Date/Time Value Ref Range Status 09/27/2023 09:54 AM 7.4 (H) see below % Final 06/11/2023 10:32 AM 7.6 (A) % Final Comment: Diagnosis of Diabetes-Adults Non-Diabetic: < or = 5.6% Increased risk for developing diabetes: 5.7-6.4% Diagnostic of diabetes: > or = 6.5% . Monitoring of Diabetes Age (y) Therapeutic Goal (%) Adults: >18 <7.0 Pediatrics: 13-18 <7.5 7-12 <8.0 0- 6 7.5-8.5 [employer] [employer]. Diabetes Care 33(S1), Nov 2009. 02/12/2023 08:57 AM 7.7 (A) % Final Comment: Diagnosis of Diabetes-Adults Non-Diabetic: < or = 5.6% Increased risk for developing diabetes: 5.7-6.4% Diagnostic of diabetes: > or = 6.5% . Monitoring of Diabetes Age (y) Therapeutic Goal (%) Adults: >18 <7.0 Pediatrics: 13-18 <7.5 7-12 <8.0 0- 6 7.5-8.5 [employer]. Diabetes Care 33(S1), Nov 2009. LDL Calculated Date/Time Value Ref Range Status 09/27/2023 09:54 AM 93 <=99 mg/dL Final Comment: Near Borderline AGE Desirable Optimal High High Very High 0-19 Y 0 - 109 --- 110-129 >/= 130 ---- 20-24 Y 0 - 119 --- 120-159 >/= 160 ---- >24 Y 0 - 99 100-129 130-159 160-189 >/=190 VLDL Date/Time Value Ref Range Status 09/27/2023 09:54 AM 13 0 - 40 mg/dL Final 02/12/2023 08:57 AM 15 0 - 40 mg/dL Final 02/04/2022 10:01 AM 10 0 - 40 mg/dL Final 06/11/2021 01:30 PM 16 0 - 40 mg/dL Final Last I/O: I/O last 3 completed shifts: In: 500 (7 mL/kg) [IV Piggyback:500] Out: - (0 mL/kg) Weight: 71.7 kg Past Cardiology Tests (Last 3 Years): EKG: No results found for this or any previous visit from the past 1095 days. Echo: Transthoracic Echo (TTE) Complete 10/11/2023 Ejection Fractions: EF Date/Time Value Ref Range Status 10/11/2023 09:40 AM 44 Cath: No results found for this or any previous visit from the past 1095 days. Stress Test: No results found for this or any previous visit from the past 1095 days. Cardiac Imaging: No results found for this or any previous visit from the past 1095 days. Past Medical History: He has a past medical history of Diabetes (CMS/HCC). Past Surgical History: He has no past surgical history on file. Social History: He reports that he has been smoking cigarettes. He has never used smokeless tobacco. He reports that he does not drink alcohol and does not use drugs. Family History: Family History Family history unknown: Yes Allergies: Prednisone and Phbqmzq-sjw-cak reductase inhibitors Inpatient Medications: Scheduled medications Medication Dose Route Frequency amLODIPine 10 mg oral Daily aspirin 324 mg oral Daily Or aspirin 150 mg rectal Daily [START ON 10/12/2023] azithromycin 500 mg intravenous q24h budesonide 0.25 mg nebulization BID [START ON 10/12/2023] cefTRIAXone 2 g intravenous q24h [START ON 10/12/2023] dexAMETHasone 6 mg oral Daily heparin 5,000 Units intravenous q8h hydroCHLOROthiazide 12.5 mg oral Daily insulin glargine 14 Units subcutaneous Daily before breakfast ipratropium-albuteroL 3 mL nebulization 4x daily lisinopril 10 mg oral Daily nicotine 1 patch transdermal Daily perflutren protein A microsphere 0.5 mL intravenous Once in imaging sulfur hexafluoride microsphr 2 mL intravenous Once in imaging tamsulosin 0.4 mg oral Daily PRN medications Medication acetaminophen Or acetaminophen Or acetaminophen dextrose 10 % in water (D10W) dextrose 10 % in water (D10W) dextrose dextrose glucagon glucagon insulin lispro insulin regular magnesium hydroxide ondansetron ODT Or ondansetron oxygen Continuous Medications Medication Dose Last Rate insulin regular infusion 0-20 Units/hr 4 Units/hr (10/11/23 1639) Outpatient Medications: Current Outpatient Medications Medication Instructions acetaminophen (Tylenol) 500 mg capsule oral amLODIPine (NORVASC) 10 mg, oral, Daily RT BD Jolynn 2nd Gen Pen Needle 32 gauge x 5/32 needle Contour Next Test Strips strip Use as directed 4 times per day. Dx E10.9 Patient with type 1 DM on insulin with hypoglycemia. Needs to check BG QID; takes insulin QID . hydroCHLOROthiazide (HYDRODiuril) 12.5 mg tablet insulin glargine (LANTUS) 14 Units, subcutaneous, Daily RT insulin lispro (HumaLOG) 100 unit/mL injection Uses approx. 35 units daily lisinopriL-hydrochlorothiazide 20-12.5 mg tablet 1 tablet, oral, Daily RT tamsulosin (FLOMAX) 0.4 mg, oral, Daily Physical Exam: General: alert, oriented and in no acute distress HEENT: NC/AT; EOMI; PERRLA, external ear is normal Neck: supple; trachea midline; no masses; no JVD Chest: Reduced lung sounds b/l. On NC oxygen. CVS: regular rhythm, S1S2 normal, no murmurs Abdomen: Soft, non-tender, non-distension, no organomegaly Extremities: no clubbing/cyanosis/edema Neuro: Grossly intact Psychiatric: Normal mood and affect Assessment/Plan Mr. Serena Fernandes is a 77 y.o. every day smoker diabetic male being consulted by the Cardiology team for elevated troponin. Patient with past medical history significant for insulin-dependent diabetes, hypertension, diabetic neuropathy, chronic kidney disease with a baseline creatinine around 1.8, arthritis and smoking. Came to ED [facility] on 10/11/2023 complaining of shortness of breath with cough and also having fevers and chills. He states that has been having SOB, cough, fever, chills, weaknoss, headache, body aches for the past 2-3 days. He denies chest pain, palpitations, leg edema, lightheadedness, orthopnea, paroxysmal nocturnal dyspnea or syncope. 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 Troponin. Patient was found to have COVID-19 pneumonia associated with sepsis [tachypnea, tachycardia, hypoxia], hypertensive emergency, hyperglycemia, and elevated troponin peak 354. BNP 251. Was admitted for clinical compensation. Echo (10/11/2023): 1. Left ventricular systolic function is moderately decreased with a 35% estimated ejection fraction. 2. There is global hypokinesis of the left ventricle with minor regional variations. 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 Troponin. - Elevated troponin peak 354 - BNP 251 - Echo (10/11/2023): 1. Left ventricular systolic function is moderately decreased with a 35% estimated ejection fraction. 2. There is global hypokinesis of the left ventricle with minor regional variations. - Troponin elevation is likely attributable to non-ischemic myocardial injury due to myocardial imbalance in oxygen supply/demand secondary to underlying sepsis. However, we cannot rule out ischemia due to Hypertensive Emergency at this point. - Due to the echo findings of reduced LVEF associated with elevated troponins and Hypertensive Emergency, the patient should undergo ischemia test at some point. Would suggest Left Heart Catheterization when clinically compensated ideally prior to discharge. If no t possible, have [facility] as an outpatient. - Due to reduced LVEF, would suggest to start Jardiance 10mg daily, Metoprolol succinate 25mg daily. - Please send the patient to our Cardiology clinic upon discharge. # Hypertension - Controlled blood pressure. - Keep home medication: Amlodipine 10mg daily, Lisinopril / hydrochlorothiazide 20/12,5mg daily, . - Patient counseled to keep a healthy lifestyle including low-sodium diet. - Goal of BP < 130/80mmHg. # Diabetes - Keep home medication with Insulin Glargine - ISS # COVID-19 pneumonia associated with sepsis [tachypnea, tachycardia, hypoxia] - Hydration - Keep broad spectrum antibiotics - NC oxygen This critically ill patient continues to be at-risk for clinically significant deterioration / failure due to the above mentioned dysfunctional, unstable organ systems. I have personally identified and managed all complex critical care issues to prevent aforementioned clinical deterioration. Critical care time is spent at bedside and/or the immediate area and has included, but is not limited to, the review of diagnostic tests, labs, radiographs, serial assessments of hemodynamics, respiratory status, ventilatory management, and family updates. Time spent in procedures and teaching are reported separately. Critical care time: 65 minutes Peripheral IV 10/11/23 20 G Left Antecubital (Active) Site Assessment Clean;Dry;Intact 10/11/23 1600 Dressing Status Clean;Dry 10/11/23 1600 Number of days: 0 Peripheral IV 10/11/23 Left Antecubital (Active) Site Assessment Clean;Dry;Intact 10/11/23 1600 Dressing Status Clean;Dry 10/11/23 1600 Number of days: 0 Code Status: Full Code Tyrone Zimmerman MD [facility] Work Phone: 10-11-2023 Consult note Associated Order (s): Inpatient consult to Cardiology Inpatient consult to Cardiology Consult performed by: Tyrone Zimmerman MD Consult ordered by: Praful Pineda MD Reason for consult: elevated troponin History Of Present Illness: Mr. Serena Fernandes is a 77 y.o. every day smoker diabetic male being consulted by the Cardiology team for elevated troponin. Patient with past medical history significant for insulin-dependent diabetes, hypertension, diabetic neuropathy, chronic kidney disease with a baseline creatinine around 1.8, arthritis and smoking. Came to ED [facility] on 10/11/2023 complaining of shortness of breath with cough and also having fevers and chills. He states that has been having SOB, cough, fever, chills, weaknoss, headache, body aches for the past 2-3 days. He denies chest pain, palpitations, leg edema, lightheadedness, orthopnea, paroxysmal nocturnal dyspnea or syncope. 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 Troponin. Patient was found to have COVID-19 pneumonia associated with sepsis [tachypnea, tachycardia, hypoxia], hypertensive emergency, hyperglycemia, and elevated troponin peak 354. BNP 251. Was admitted for clinical compensation. Echo (10/11/2023): 1. Left ventricular systolic function is moderately decreased with a 35% estimated ejection fraction. 2. There is global hypokinesis of the left ventricle with minor regional variations. Last Recorded Vitals: Vitals: 10/11/23 1500 10/11/23 1600 10/11/23 1602 10/11/23 1700 BP: BP Location: Patient Position: Pulse: 93 (!) 111 94 Resp: 18 20 13 Temp: TempSrc: SpO2: 98% 94% 94% 96% Weight: Height: Last Labs: CBC - 10/11/2023: 1:21 AM 10.4 12.0 158 36.7 CMP - 10/11/2023: 1:21 AM 8.5 6.3 18 --- 0.4 3.2 3.8 13 83 PTT - No results in last year. _ _ _ Troponin I, High Sensitivity Date/Time Value Ref Range Status 10/11/2023 02:45 AM 354 (HH) 0 - 20 ng/L Final Comment: Previous result verified on 10/11/2023 0209 on specimen/case [id number] called with component [facility] for procedure Troponin I, High Sensitivity, Initial with value 102 ng/L. 10/11/2023 01:21 AM 102 (HH) 0 - 20 ng/L Final BNP Date/Time Value Ref Range Status 10/11/2023 01:21 AM 251 (H) 0 - 99 pg/mL Final Hemoglobin A1C Date/Time Value Ref Range Status 09/27/2023 09:54 AM 7.4 (H) see below % Final 06/11/2023 10:32 AM 7.6 (A) % Final Comment: Diagnosis of Diabetes-Adults Non-Diabetic: < or = 5.6% Increased risk for developing diabetes: 5.7-6.4% Diagnostic of diabetes: > or = 6.5% . Monitoring of Diabetes Age (y) Therapeutic Goal (%) Adults: >18 <7.0 Pediatrics: 13-18 <7.5 7-12 <8.0 0- 6 7.5-8.5 [employer] [employer]. Diabetes Care 33(S1), Nov 2009. 02/12/2023 08:57 AM 7.7 (A) % Final Comment: Diagnosis of Diabetes-Adults Non-Diabetic: < or = 5.6% Increased risk for developing diabetes: 5.7-6.4% Diagnostic of diabetes: > or = 6.5% . Monitoring of Diabetes Age (y) Therapeutic Goal (%) Adults: >18 <7.0 Pediatrics: 13-18 <7.5 7-12 <8.0 0- 6 7.5-8.5 [employer]. Diabetes Care 33(S1), Nov 2009. LDL Calculated Date/Time Value Ref Range Status 09/27/2023 09:54 AM 93 <=99 mg/dL Final Comment: Near Borderline AGE Desirable Optimal High High Very High 0-19 Y 0 - 109 --- 110-129 >/= 130 ---- 20-24 Y 0 - 119 --- 120-159 >/= 160 ---- >24 Y 0 - 99 100-129 130-159 160-189 >/=190 VLDL Date/Time Value Ref Range Status 09/27/2023 09:54 AM 13 0 - 40 mg/dL Final 02/12/2023 08:57 AM 15 0 - 40 mg/dL Final 02/04/2022 10:01 AM 10 0 - 40 mg/dL Final 06/11/2021 01:30 PM 16 0 - 40 mg/dL Final Last I/O: I/O last 3 completed shifts: In: 500 (7 mL/kg) [IV Piggyback:500] Out: - (0 mL/kg) Weight: 71.7 kg Past Cardiology Tests (Last 3 Years): EKG: No results found for this or any previous visit from the past 1095 days. Echo: Transthoracic Echo (TTE) Complete 10/11/2023 Ejection Fractions: EF Date/Time Value Ref Range Status 10/11/2023 09:40 AM 44 Cath: No results found for this or any previous visit from the past 1095 days. Stress Test: No results found for this or any previous visit from the past 1095 days. Cardiac Imaging: No results found for this or any previous visit from the past 1095 days. Past Medical History: He has a past medical history of Diabetes (CMS/HCC). Past Surgical History: He has no past surgical history on file. Social History: He reports that he has been smoking cigarettes. He has never used smokeless tobacco. He reports that he does not drink alcohol and does not use drugs. Family History: Family History Family history unknown: Yes Allergies: Prednisone and Wbuhujd-uqi-yun reductase inhibitors Inpatient Medications: Scheduled medications Medication Dose Route Frequency amLODIPine 10 mg oral Daily aspirin 324 mg oral Daily Or aspirin 150 mg rectal Daily [START ON 10/12/2023] azithromycin 500 mg intravenous q24h budesonide 0.25 mg nebulization BID [START ON 10/12/2023] cefTRIAXone 2 g intravenous q24h [START ON 10/12/2023] dexAMETHasone 6 mg oral Daily heparin 5,000 Units intravenous q8h hydroCHLOROthiazide 12.5 mg oral Daily insulin glargine 14 Units subcutaneous Daily before breakfast ipratropium-albuteroL 3 mL nebulization 4x daily lisinopril 10 mg oral Daily nicotine 1 patch transdermal Daily perflutren protein A microsphere 0.5 mL intravenous Once in imaging sulfur hexafluoride microsphr 2 mL intravenous Once in imaging tamsulosin 0.4 mg oral Daily PRN medications Medication acetaminophen Or acetaminophen Or acetaminophen dextrose 10 % in water (D10W) dextrose 10 % in water (D10W) dextrose dextrose glucagon glucagon insulin lispro insulin regular magnesium hydroxide ondansetron ODT Or ondansetron oxygen Continuous Medications Medication Dose Last Rate insulin regular infusion 0-20 Units/hr 4 Units/hr (10/11/23 1639) Outpatient Medications: Current Outpatient Medications Medication Instructions acetaminophen (Tylenol) 500 mg capsule oral amLODIPine (NORVASC) 10 mg, oral, Daily RT BD Jolynn 2nd Gen Pen Needle 32 gauge x 5/32 needle Contour Next Test Strips strip Use as directed 4 times per day. Dx E10.9 Patient with type 1 DM on insulin with hypoglycemia. Needs to check BG QID; takes insulin QID . hydroCHLOROthiazide (HYDRODiuril) 12.5 mg tablet insulin glargine (LANTUS) 14 Units, subcutaneous, Daily RT insulin lispro (HumaLOG) 100 unit/mL injection Uses approx. 35 units daily lisinopriL-hydrochlorothiazide 20-12.5 mg tablet 1 tablet, oral, Daily RT tamsulosin (FLOMAX) 0.4 mg, oral, Daily Physical Exam: General: alert, oriented and in no acute distress HEENT: NC/AT; EOMI; PERRLA, external ear is normal Neck: supple; trachea midline; no masses; no JVD Chest: Reduced lung sounds b/l. On NC oxygen. CVS: regular rhythm, S1S2 normal, no murmurs Abdomen: Soft, non-tender, non-distension, no organomegaly Extremities: no clubbing/cyanosis/edema Neuro: Grossly intact Psychiatric: Normal mood and affect Assessment/Plan Mr. Serena Fernandes is a 77 y.o. every day smoker diabetic male being consulted by the Cardiology team for elevated troponin. Patient with past medical history significant for insulin-dependent diabetes, hypertension, diabetic neuropathy, chronic kidney disease with a baseline creatinine around 1.8, arthritis and smoking. Came to ED [facility] on 10/11/2023 complaining of shortness of breath with cough and also having fevers and chills. He states that has been having SOB, cough, fever, chills, weaknoss, headache, body aches for the past 2-3 days. He denies chest pain, palpitations, leg edema, lightheadedness, orthopnea, paroxysmal nocturnal dyspnea or syncope. 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 Troponin. Patient was found to have COVID-19 pneumonia associated with sepsis [tachypnea, tachycardia, hypoxia], hypertensive emergency, hyperglycemia, and elevated troponin peak 354. BNP 251. Was admitted for clinical compensation. Echo (10/11/2023): 1. Left ventricular systolic function is moderately decreased with a 35% estimated ejection fraction. 2. There is global hypokinesis of the left ventricle with minor regional variations. 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 Troponin. - Elevated troponin peak 354 - BNP 251 - Echo (10/11/2023): 1. Left ventricular systolic function is moderately decreased with a 35% estimated ejection fraction. 2. There is global hypokinesis of the left ventricle with minor regional variations. - Troponin elevation is likely attributable to non-ischemic myocardial injury due to myocardial imbalance in oxygen supply/demand secondary to underlying sepsis. However, we cannot rule out ischemia due to Hypertensive Emergency at this point. - Due to the echo findings of reduced LVEF associated with elevated troponins and Hypertensive Emergency, the patient should undergo ischemia test at some point. Would suggest Left Heart Catheterization when clinically compensated ideally prior to discharge. If no t possible, have [facility] as an outpatient. - Due to reduced LVEF, would suggest to start Jardiance 10mg daily, Metoprolol succinate 25mg daily. - Please send the patient to our Cardiology clinic upon discharge. # Hypertension - Controlled blood pressure. - Keep home medication: Amlodipine 10mg daily, Lisinopril / hydrochlorothiazide 20/12,5mg daily, . - Patient counseled to keep a healthy lifestyle including low-sodium diet. - Goal of BP < 130/80mmHg. # Diabetes - Keep home medication with Insulin Glargine - ISS # COVID-19 pneumonia associated with sepsis [tachypnea, tachycardia, hypoxia] - Hydration - Keep broad spectrum antibiotics - NC oxygen This critically ill patient continues to be at-risk for clinically significant deterioration / failure due to the above mentioned dysfunctional, unstable organ systems. I have personally identified and managed all complex critical care issues to prevent aforementioned clinical deterioration. Critical care time is spent at bedside and/or the immediate area and has included, but is not limited to, the review of diagnostic tests, labs, radiographs, serial assessments of hemodynamics, respiratory status, ventilatory management, and family updates. Time spent in procedures and teaching are reported separately. Critical care time: 65 minutes Peripheral IV 10/11/23 20 G Left Antecubital (Active) Site Assessment Clean;Dry;Intact 10/11/23 1600 Dressing Status Clean;Dry 10/11/23 1600 Number of days: 0 Peripheral IV 10/11/23 Left Antecubital (Active) Site Assessment Clean;Dry;Intact 10/11/23 1600 Dressing Status Clean;Dry 10/11/23 1600 Number of days: 0 Code Status: Full Code Tyrone Zimmerman MD Associated Order(s): IP CONSULT TO FIRST OFFICER Reason For Consult Acute respiratory failure History Of Present Illness Serena Fernandes is a 77 y.o. male presenting with shortness of breath. He presented to the emergency room secondary to shortness of breath with cough and also having fevers and chills. His blood pressure was quite elevated on admission. He was hypoxic and also found to be COVID-positive. This a.m. when I saw him his sugars were also quite elevated. His sugar was over 500 He states that he has been having some cough with some sputum production. He states that he felt very very short of breath he was paced on BiPAP and BiPAP did help his breathing He is a little bit anxious at times Past Medical History He has a past medical history of Diabetes ([facility]). Surgical History He has no past surgical history on file. Social History He reports that he has been smoking cigarettes. He has never used smokeless tobacco. He reports that he does not drink alcohol and does not use drugs. Family History Family History Family history unknown: Yes Allergies Prednisone and Atydtyl-nnq-yvq reductase inhibitors Review of Systems A full 10 point review of systems was obtained is negative except HPI as above Physical Exam Physical Exam Constitutional: Appearance: Normal appearance. HENT: Head: Normocephalic and atraumatic. Right Ear: External ear normal. Left Ear: External ear normal. Nose: Nose normal. Mouth/Throat: Mouth: Mucous membranes are moist. Pharynx: Oropharynx is clear. Eyes: Extraocular Movements: Extraocular movements intact. Conjunctiva/sclera: Conjunctivae normal. Pupils: Pupils are equal, round, and reactive to light. Cardiovascular: Rate and Rhythm: Regular rhythm. Tachycardia present. Pulmonary: Effort: Pulmonary effort is normal. Breath sounds: Rhonchi present. Comments: Tachypnea Abdominal: General: Abdomen is flat. Palpations: Abdomen is soft. Skin: General: Skin is warm and dry. Neurological: General: No focal deficit present. Mental Status: He is alert and oriented to person, place, and time. Psychiatric: Mood and Affect: Mood normal. Behavior: Behavior normal. I&O 24HR Intake/Output Summary (Last 24 hours) at 10/11/2023 1213 Last data filed at 10/11/2023 0145 Gross per 24 hour Intake 500 ml Output -- Net 500 ml Vitals 24HR Heart Rate: [110-136] Temp: [36.7 C (98 F)-37.4 C (99.3 F)] Resp: [21-35] BP: (117-254)/(70-111) Height: [171.5 cm (5' 7.5 )] Weight: [71.7 kg (158 lb)] SpO2: [88 %-97 %] Scheduled medications amLODIPine, 10 mg, oral, Daily aspirin, 324 mg, oral, Daily Or aspirin, 150 mg, rectal, Daily [START ON 10/12/2023] azithromycin, 500 mg, intravenous, q24h budesonide, 0.5 mg, nebulization, BID [START ON 10/12/2023] cefTRIAXone, 2 g, intravenous, q24h [START ON 10/12/2023] dexAMETHasone, 6 mg, oral, Daily heparin, 5,000 Units, intravenous, q8h hydroCHLOROthiazide, 12.5 mg, oral, Daily insulin glargine, 14 Units, subcutaneous, Daily before breakfast insulin lispro, 0-25 Units, subcutaneous, With meals & nightly ipratropium-albuteroL, 3 mL, nebulization, 4x daily lisinopril, 10 mg, oral, Daily nicotine, 1 patch, transdermal, Daily perflutren protein A microsphere, 0.5 mL, intravenous, Once in imaging sulfur hexafluoride microsphr, 2 mL, intravenous, Once in imaging tamsulosin, 0.4 mg, oral, Daily Continuous medications PRN medications PRN medications: acetaminophen OR acetaminophen OR acetaminophen, dextrose 10 % in water (D10W), dextrose, glucagon, insulin lispro, magnesium hydroxide, ondansetron ODT OR ondansetron, oxygen Relevant Results Reviewed lab results and imaging studies Assessment/Plan Acute hypoxemic respiratory failure COVID-19 pneumonia Bilateral infiltrates Slight leukocytosis Chronic kidney disease stage III appears with baseline creatinine about 1.6-1.9 Evolving metabolic acidosis with bicarb falling Diabetes mellitus type 2 with hyperglycemia Shortness of breath Hypertension Elevated troponin Nicotine abuse Plan: He is currently on 5 L of oxygen via nasal cannula and also using BiPAP as needed His sugars this morning were over 500 we gave him an extra dose and then we have rechecked and at this time his sugars are still quite elevated He is over 600 his bicarb is actually falling Due to this we will go ahead and start him on in insulin drip We will leave his long-acting insulin Check blood sugars every 2 hours His last hemoglobin A1c was 7.4 Continue respiratory support as he is on continue on Decadron due to his hypoxemia He is on Rocephin and Zithromax he does have a slight white count with bilateral infiltrates we will follow his procalcitonin and follow need for antibiotics closely Thanks for the consult I spent 30 minutes of critical care time direct involved in patient care excluding billable procedures Principal Problem: COVID-19 Obed Albert DO documented in this encounter [facility] Work Phone: 10-11-2023 Consult note Associated Order (s): IP CONSULT TO FIRST OFFICER Reason For Consult Acute respiratory failure History Of Present Illness Serena Fernandes is a 77 y.o. male presenting with shortness of breath. He presented to the emergency room secondary to shortness of breath with cough and also having fevers and chills. His blood pressure was quite elevated on admission. He was hypoxic and also found to be COVID-positive. This a.m. when I saw him his sugars were also quite elevated. His sugar was over 500 He states that he has been having some cough with some sputum production. He states that he felt very very short of breath he was paced on BiPAP and BiPAP did help his breathing He is a little bit anxious at times Past Medical History He has a past medical history of Diabetes (CMS/HCC). Surgical History He has no past surgical history on file. Social History He reports that he has been smoking cigarettes. He has never used smokeless tobacco. He reports that he does not drink alcohol and does not use drugs. Family History Family History Family history unknown: Yes Allergies Prednisone and Njfhymm-exb-hjf reductase inhibitors Review of Systems A full 10 point review of systems was obtained is negative except HPI as above Physical Exam Physical Exam Constitutional: Appearance: Normal appearance. HENT: Head: Normocephalic and atraumatic. Right Ear: External ear normal. Left Ear: External ear normal. Nose: Nose normal. Mouth/Throat: Mouth: Mucous membranes are moist. Pharynx: Oropharynx is clear. Eyes: Extraocular Movements: Extraocular movements intact. Conjunctiva/sclera: Conjunctivae normal. Pupils: Pupils are equal, round, and reactive to light. Cardiovascular: Rate and Rhythm: Regular rhythm. Tachycardia present. Pulmonary: Effort: Pulmonary effort is normal. Breath sounds: Rhonchi present. Comments: Tachypnea Abdominal: General: Abdomen is flat. Palpations: Abdomen is soft. Skin: General: Skin is warm and dry. Neurological: General: No focal deficit present. Mental Status: He is alert and oriented to person, place, and time. Psychiatric: Mood and Affect: Mood normal. Behavior: Behavior normal. I&O 24HR Intake/Output Summary (Last 24 hours) at 10/11/2023 1213 Last data filed at 10/11/2023 0145 Gross per 24 hour Intake 500 ml Output -- Net 500 ml Vitals 24HR Heart Rate: [110-136] Temp: [36.7 C (98 F)-37.4 C (99.3 F)] Resp: [21-35] BP: (117-254)/(70-111) Height: [171.5 cm (5' 7.5 )] Weight: [71.7 kg (158 lb)] SpO2: [88 %-97 %] Scheduled medications amLODIPine, 10 mg, oral, Daily aspirin, 324 mg, oral, Daily Or aspirin, 150 mg, rectal, Daily [START ON 10/12/2023] azithromycin, 500 mg, intravenous, q24h budesonide, 0.5 mg, nebulization, BID [START ON 10/12/2023] cefTRIAXone, 2 g, intravenous, q24h [START ON 10/12/2023] dexAMETHasone, 6 mg, oral, Daily heparin, 5,000 Units, intravenous, q8h hydroCHLOROthiazide, 12.5 mg, oral, Daily insulin glargine, 14 Units, subcutaneous, Daily before breakfast insulin lispro, 0-25 Units, subcutaneous, With meals & nightly ipratropium-albuteroL, 3 mL, nebulization, 4x daily lisinopril, 10 mg, oral, Daily nicotine, 1 patch, transdermal, Daily perflutren protein A microsphere, 0.5 mL, intravenous, Once in imaging sulfur hexafluoride microsphr, 2 mL, intravenous, Once in imaging tamsulosin, 0.4 mg, oral, Daily Continuous medications PRN medications PRN medications: acetaminophen OR acetaminophen OR acetaminophen, dextrose 10 % in water (D10W), dextrose, glucagon, insulin lispro, magnesium hydroxide, ondansetron ODT OR ondansetron, oxygen Relevant Results Reviewed lab results and imaging studies Assessment/Plan Acute hypoxemic respiratory failure COVID-19 pneumonia Bilateral infiltrates Slight leukocytosis Chronic kidney disease stage III appears with baseline creatinine about 1.6-1.9 Evolving metabolic acidosis with bicarb falling Diabetes mellitus type 2 with hyperglycemia Shortness of breath Hypertension Elevated troponin Nicotine abuse Plan: He is currently on 5 L of oxygen via nasal cannula and also using BiPAP as needed His sugars this morning were over 500 we gave him an extra dose and then we have rechecked and at this time his sugars are still quite elevated He is over 600 his bicarb is actually falling Due to this we will go ahead and start him on in insulin drip We will leave his long-acting insulin Check blood sugars every 2 hours His last hemoglobin A1c was 7.4 Continue respiratory support as he is on continue on Decadron due to his hypoxemia He is on Rocephin and Zithromax he does have a slight white count with bilateral infiltrates we will follow his procalcitonin and follow need for antibiotics closely Thanks for the consult I spent 30 minutes of critical care time direct involved in patient care excluding billable procedures Principal Problem: COVID-19 Obed Albert DO [facility] Work Phone: 10-11-2023 Plan of care note Patient's reviewed. Currently on 5 L of oxygen by nasal cannula, sitting in bed. wants him to be full code with DNI. Continue with current management. [facility] Work Phone: 10-11-2023 Nurse Note , Alice ([phone]), called and requesting and update. Update provided. She is Serena's POA and requests in the event of cardiac he receive CPR and life sustaining medications. She is unsure if she wants him intubated and wants more time to think about it. She reported she will be visiting Serena today around 11am. [facility] 10-11-2023 Nurse Note At 0545 pt pushed his call light asking for assistance. Two nurses went into his room to check on him. Patient was found sitting at the edge of the bed, RR was 28-32, HR was 120s - 130s. Patient was very fearful, using accessory muscles to breath. Respiratory therapist was called, patient put back on bi-pap. Patient calmed down, was asked about his code status. Patient stated he has a DNR but is unsure of what it says. He stated his is his medical POA. Patient currently sleeping, HR 112, RR 24. [facility] Work Phone: 10-11-2023 History and physical note History Of Present Illness Serena Fernandes is a 77 y.o. male Who presented to the emergency room for cough, shortness of breath, fever and chills. On presentation, blood pressure 189/75 and then it became 250/111, heart rate 150s, respiratory rate 35, afebrile, saturation oxygen 89% on room air. Pertinent findings on blood workup; glucose 244, creatinine 1.83, BUN 30, BNP 251 and troponin 102 with repeat of 354 D-dimer 1869. ABG showed a pH of 7.36, pCO2 41 and pO2 of 66. Chest x-ray showed diffuse interstitial and scattered hazy opacities. COVID-19 came back positive. Patient was placed on BiPAP and given in the emergency room azithromycin, ceftriaxone, DuoNebs, dexamethasone 10 mg IV, 0.5 mg IV diazepam, 1.25 mg IV Vasotec, 20 mg IV Lasix, insulin, IV fluids, and 20 mg IV labetalol and then admitted to the medical service for further investigation and management. Patient resting comfortably in his bed now. Reports feeling better. Not as short winded anymore. He has been feeling sick for the past 3 days. Cough is dry. No chest pain. No palpitations. No nausea or vomiting. Appetite has decreased. ROS 10 systems were reviewed and were negative except for those noted in the history of present illness. Past Medical History Past Medical History: Diagnosis Date Diabetes ([facility]) Pertinent medical history also documented in my below narrative Surgical History History reviewed. No pertinent surgical history. Pertinent surgical history also documented in my below narrative Social History He reports that he has been smoking cigarettes. He has never used smokeless tobacco. He reports that he does not drink alcohol and does not use drugs. Family History Family History Family history unknown: Yes Allergies Prednisone and Jeiktcu-wun-dpn reductase inhibitors Medications Prior to Admission Medication Sig Dispense Refill Last Dose acetaminophen (Tylenol) 500 mg capsule Take by mouth. amLODIPine (Norvasc) 10 mg tablet Take 1 tablet (10 mg) by mouth once daily. BD Jolynn 2nd Gen Pen Needle 32 gauge x 5/32 needle Contour Next Test Strips strip Use as directed 4 times per day. Dx E10.9 Patient with type 1 DM on insulin with hypoglycemia. Needs to check BG QID; takes insulin QID . hydroCHLOROthiazide (HYDRODiuril) 12.5 mg tablet insulin glargine (Lantus) 100 unit/mL (3 mL) pen Inject 14 Units under the skin once daily. insulin lispro (HumaLOG) 100 unit/mL injection Uses approx. 35 units daily lisinopriL-hydrochlorothiazide 20-12.5 mg tablet Take 1 tablet by mouth once daily. tamsulosin (Flomax) 0.4 mg 24 hr capsule Take 1 capsule (0.4 mg) by mouth once daily. Last Recorded Vitals Blood pressure (!) 121/93, pulse (!) 131, temperature 36.7 C (98 F), temperature source Oral, resp. rate 24, height 1.715 m (5' 7.5 ), weight 71.7 kg (158 lb), SpO2 97 %. Physical Exam Constitutional: General: He is not in acute distress. Appearance: He is ill-appearing. Comments: Awake alert and oriented x3 HENT: Mouth/Throat: Pharynx: Oropharynx is clear. Eyes: Pupils: Pupils are equal, round, and reactive to light. Cardiovascular: Rate and Rhythm: Regular rhythm. Tachycardia present. Heart sounds: Normal heart sounds. Pulmonary: Breath sounds: Normal breath sounds. Comments: Mild wheezing. Diminished air entry at the lower lobes with distant breath sounds. Abdominal: General: Abdomen is flat. Bowel sounds are normal. There is no distension. Palpations: Abdomen is soft. Tenderness: There is no abdominal tenderness. Musculoskeletal: General: No swelling. Skin: General: Skin is warm. Neurological: General: No focal deficit present. Psychiatric: Mood and Affect: Mood normal. Behavior: Behavior normal. Thought Content: Thought content normal. Judgment: Judgment normal. Relevant Results Results for orders placed or performed during the hospital encounter of 10/11/23 (from the past 24 hour(s)) Sars-CoV-2 PCR, Symptomatic Result Value Ref Range Coronavirus 2019, PCR Detected (A) Not Detected Influenza A, and B PCR Result Value Ref Range Flu A Result Not Detected Not Detected Flu B Result Not Detected Not Detected RSV PCR Result Value Ref Range RSV PCR Not Detected Not Detected Comprehensive Metabolic Panel Result Value Ref Range Glucose 344 (H) 74 - 99 mg/dL Sodium 136 136 - 145 mmol/L Potassium 4.4 3.5 - 5.3 mmol/L Chloride 103 98 - 107 mmol/L Bicarbonate 22 21 - 32 mmol/L Anion Gap 15 10 - 20 mmol/L Urea Nitrogen 30 (H) 6 - 23 mg/dL Creatinine 1.83 (H) 0.50 - 1.30 mg/dL eGFR 37 (L) >60 mL/min/1.73m*2 Calcium 8.5 (L) 8.6 - 10.3 mg/dL Albumin 3.8 3.4 - 5.0 g/dL Alkaline Phosphatase 83 33 - 136 U/L Total Protein 6.3 (L) 6.4 - 8.2 g/dL AST 18 9 - 39 U/L Bilirubin, Total 0.4 0.0 - 1.2 mg/dL ALT 13 10 - 52 U/L CBC and Auto Differential Result Value Ref Range WBC 10.4 4.4 - 11.3 x10*3/uL nRBC 0.0 0.0 - 0.0 /100 WBCs RBC 3.95 (L) 4.50 - 5.90 x10*6/uL Hemoglobin 12.0 (L) 13.5 - 17.5 g/dL Hematocrit 36.7 (L) 41.0 - 52.0 % MCV 93 80 - 100 fL MCH 30.4 26.0 - 34.0 pg MCHC 32.7 32.0 - 36.0 g/dL RDW 13.0 11.5 - 14.5 % Platelets 158 150 - 450 x10*3/uL Neutrophils % 73.2 40.0 - 80.0 % Immature Granulocytes %, Automated 0.3 0.0 - 0.9 % Lymphocytes % 12.9 13.0 - 44.0 % Monocytes % 12.0 2.0 - 10.0 % Eosinophils % 0.9 0.0 - 6.0 % Basophils % 0.7 0.0 - 2.0 % Neutrophils Absolute 7.64 (H) 1.60 - 5.50 x10*3/uL Immature Granulocytes Absolute, Automated 0.03 0.00 - 0.50 x10*3/uL Lymphocytes Absolute 1.34 0.80 - 3.00 x10*3/uL Monocytes Absolute 1.25 (H) 0.05 - 0.80 x10*3/uL Eosinophils Absolute 0.09 0.00 - 0.40 x10*3/uL Basophils Absolute 0.07 0.00 - 0.10 x10*3/uL Lactate Result Value Ref Range Lactate 1.6 0.4 - 2.0 mmol/L D-Dimer, VTE Exclusion Result Value Ref Range D-Dimer, Quantitative VTE Exclusion 1,869 (H) <=500 ng/mL FEU Troponin I, High Sensitivity, Initial Result Value Ref Range Troponin I, High Sensitivity 102 (HH) 0 - 20 ng/L SST TOP Result Value Ref Range Extra Tube Hold for add-ons. B-type natriuretic peptide Result Value Ref Range BNP 251 (H) 0 - 99 pg/mL Blood Gas Arterial Result Value Ref Range POCT pH, Arterial 7.36 (L) 7.38 - 7.42 pH POCT pCO2, Arterial 41 38 - 42 mm Hg POCT pO2, Arterial 66 (L) 85 - 95 mm Hg POCT SO2, Arterial 93 (L) 94 - 100 % POCT Oxy Hemoglobin, Arterial 90.6 (L) 94.0 - 98.0 % POCT Base Excess, Arterial -2.2 (L) -2.0 - 3.0 mmol/L POCT HCO3 Calculated, Arterial 23.2 22.0 - 26.0 mmol/L Patient Temperature 37.0 degrees Celsius FiO2 50 % Apparatus CANNULA Troponin, High Sensitivity, 1 Hour Result Value Ref Range Troponin I, High Sensitivity 354 (HH) 0 - 20 ng/L POCT GLUCOSE Result Value Ref Range POCT Glucose 386 (H) 74 - 99 mg/dL Urinalysis with Reflex Microscopic and Culture Result Value Ref Range Color, Urine Yellow Straw, Yellow Appearance, Urine Clear Clear Specific [place], Urine 1.014 1.005 - 1.035 pH, Urine 5.0 5.0, 5.5, 6.0, 6.5, 7.0, 7.5, 8.0 Protein, Urine 100 (2+) (N) NEGATIVE mg/dL Glucose, Urine >=500 (3+) (A) NEGATIVE mg/dL Blood, Urine NEGATIVE NEGATIVE Ketones, Urine 5 (TRACE) (A) NEGATIVE mg/dL Bilirubin, Urine NEGATIVE NEGATIVE Urobilinogen, Urine <2.0 <2.0 mg/dL Nitrite, Urine NEGATIVE NEGATIVE Leukocyte Esterase, Urine NEGATIVE NEGATIVE Extra Urine Dey Tube Result Value Ref Range Extra Tube Hold for add-ons. Urinalysis Microscopic Result Value Ref Range WBC, Urine NONE 1-5, NONE /HPF RBC, Urine NONE NONE, 1-2, 3-5 /HPF Hyaline Casts, Urine OCCASIONAL (A) NONE /LPF SST TOP Result Value Ref Range Extra Tube Hold for add-ons. XR chest 1 view Result Date: 10/11/2023 Interpreted By: Kahlil Fagan, STUDY: XR CHEST 1 VIEW; 10/11/2023 1:30 am INDICATION: Signs/Symptoms:Cough. COMPARISON: Chest radiograph 11/04/2012 ACCESSION NUMBER(S): [id number] ORDERING CLINICIAN: AURY ROUSE FINDINGS: SUPPORT DEVICES: None. CARDIOMEDIASTINAL SILHOUETTE: Cardiomediastinal silhouette is normal in size and configuration. LUNGS: Diffuse interstitial prominence and scattered hazy opacities. No large pleural effusion or discernible pneumothorax. ABDOMEN: No remarkable upper abdominal findings. BONES: No acute osseous abnormality. 1. Diffuse interstitial and scattered hazy opacities. These are nonspecific and may represent atypical infectious or inflammatory process or possibly edema in the appropriate clinical setting. Component may also be related to chronic parenchymal changes. Recommend follow-up to resolution. Signed by: Kahlil Fagan 10/11/2023 1:33 AM Dictation workstation: [id number] Assessment/Plan 77-year-old male, smoker, with a past medical history of insulin-dependent diabetes, hypertension, diabetic neuropathy, chronic kidney disease with a baseline creatinine around 1.8, arthritis and nicotine dependence who presented to the emergency room 43 days history of fever cough chills and shortness of breath. Patient was found to have COVID-19 pneumonia associated with sepsis [tachypnea, tachycardia, hypoxia], hypertensive emergency, hyperglycemia, and elevated troponin. Admit patient to the intensive care unit. Telemetry and vital signs monitoring. Consult critical care. Continue with the BiPAP. Will hold on giving remdesivir given the renal failure. And will wait for further input from critical care. Continue with the ceftriaxone and azithromycin for the possible superimposed bacterial infection. Check procalcitonin level. DuoNebs 4 times a day. Pulmicort twice a day. Dexamethasone 6 mg IV daily. Regarding the elevated troponin, no EKG changes, and patient not having any chest pain. I will consult cardiology. I will give 1 dose aspirin 325 mg. And defer to cardiology any further management. Resume home medications SCDs and heparin for DVT prophylaxis Patient is full code I have reviewed and evaluated the most recent data and results, personally examined the patient, and formulated the plan of care as presented above. Patient is at-risk for clinically significant deterioration / failure due to the above mentioned dysfunctional, unstable organ systems and requires continued critical care treatment. I have personally identified and managed all complex critical care issues to prevent aforementioned clinical deterioration. 60 minutes were spent in the critical care management of the patient excluding billable procedures (This note was generated with voice recognition software and may contain errors including spelling, grammar, syntax and misrecognition of what was dictated, that are not fully corrected) Praful Pineda MD [facility] Work Phone: 10-11-2023 History and physical note History Of Present Illness Serena Fernandes is a 77 y.o. male Who presented to the emergency room for cough, shortness of breath, fever and chills. On presentation, blood pressure 189/75 and then it became 250/111, heart rate 150s, respiratory rate 35, afebrile, saturation oxygen 89% on room air. Pertinent findings on blood workup; glucose 244, creatinine 1.83, BUN 30, BNP 251 and troponin 102 with repeat of 354 D-dimer 1869. ABG showed a pH of 7.36, pCO2 41 and pO2 of 66. Chest x-ray showed diffuse interstitial and scattered hazy opacities. COVID-19 came back positive. Patient was placed on BiPAP and given in the emergency room azithromycin, ceftriaxone, DuoNebs, dexamethasone 10 mg IV, 0.5 mg IV diazepam, 1.25 mg IV Vasotec, 20 mg IV Lasix, insulin, IV fluids, and 20 mg IV labetalol and then admitted to the medical service for further investigation and management. Patient resting comfortably in his bed now. Reports feeling better. Not as short winded anymore. He has been feeling sick for the past 3 days. Cough is dry. No chest pain. No palpitations. No nausea or vomiting. Appetite has decreased. ROS 10 systems were reviewed and were negative except for those noted in the history of present illness. Past Medical History Past Medical History: Diagnosis Date Diabetes (CMS/HCC) Pertinent medical history also documented in my below narrative Surgical History History reviewed. No pertinent surgical history. Pertinent surgical history also documented in my below narrative Social History He reports that he has been smoking cigarettes. He has never used smokeless tobacco. He reports that he does not drink alcohol and does not use drugs. Family History Family History Family history unknown: Yes Allergies Prednisone and Pbvfzce-nlo-itv reductase inhibitors Medications Prior to Admission Medication Sig Dispense Refill Last Dose acetaminophen (Tylenol) 500 mg capsule Take by mouth. amLODIPine (Norvasc) 10 mg tablet Take 1 tablet (10 mg) by mouth once daily. BD Jolynn 2nd Gen Pen Needle 32 gauge x 5/32 needle Contour Next Test Strips strip Use as directed 4 times per day. Dx E10.9 Patient with type 1 DM on insulin with hypoglycemia. Needs to check BG QID; takes insulin QID . hydroCHLOROthiazide (HYDRODiuril) 12.5 mg tablet insulin glargine (Lantus) 100 unit/mL (3 mL) pen Inject 14 Units under the skin once daily. insulin lispro (HumaLOG) 100 unit/mL injection Uses approx. 35 units daily lisinopriL-hydrochlorothiazide 20-12.5 mg tablet Take 1 tablet by mouth once daily. tamsulosin (Flomax) 0.4 mg 24 hr capsule Take 1 capsule (0.4 mg) by mouth once daily. Last Recorded Vitals Blood pressure (!) 121/93, pulse (!) 131, temperature 36.7 C (98 F), temperature source Oral, resp. rate 24, height 1.715 m (5' 7.5 ), weight 71.7 kg (158 lb), SpO2 97 %. Physical Exam Constitutional: General: He is not in acute distress. Appearance: He is ill-appearing. Comments: Awake alert and oriented x3 HENT: Mouth/Throat: Pharynx: Oropharynx is clear. Eyes: Pupils: Pupils are equal, round, and reactive to light. Cardiovascular: Rate and Rhythm: Regular rhythm. Tachycardia present. Heart sounds: Normal heart sounds. Pulmonary: Breath sounds: Normal breath sounds. Comments: Mild wheezing. Diminished air entry at the lower lobes with distant breath sounds. Abdominal: General: Abdomen is flat. Bowel sounds are normal. There is no distension. Palpations: Abdomen is soft. Tenderness: There is no abdominal tenderness. Musculoskeletal: General: No swelling. Skin: General: Skin is warm. Neurological: General: No focal deficit present. Psychiatric: Mood and Affect: Mood normal. Behavior: Behavior normal. Thought Content: Thought content normal. Judgment: Judgment normal. Relevant Results Results for orders placed or performed during the hospital encounter of 10/11/23 (from the past 24 hour(s)) Sars-CoV-2 PCR, Symptomatic Result Value Ref Range Coronavirus 2019, PCR Detected (A) Not Detected Influenza A, and B PCR Result Value Ref Range Flu A Result Not Detected Not Detected Flu B Result Not Detected Not Detected RSV PCR Result Value Ref Range RSV PCR Not Detected Not Detected Comprehensive Metabolic Panel Result Value Ref Range Glucose 344 (H) 74 - 99 mg/dL Sodium 136 136 - 145 mmol/L Potassium 4.4 3.5 - 5.3 mmol/L Chloride 103 98 - 107 mmol/L Bicarbonate 22 21 - 32 mmol/L Anion Gap 15 10 - 20 mmol/L Urea Nitrogen 30 (H) 6 - 23 mg/dL Creatinine 1.83 (H) 0.50 - 1.30 mg/dL eGFR 37 (L) >60 mL/min/1.73m*2 Calcium 8.5 (L) 8.6 - 10.3 mg/dL Albumin 3.8 3.4 - 5.0 g/dL Alkaline Phosphatase 83 33 - 136 U/L Total Protein 6.3 (L) 6.4 - 8.2 g/dL AST 18 9 - 39 U/L Bilirubin, Total 0.4 0.0 - 1.2 mg/dL ALT 13 10 - 52 U/L CBC and Auto Differential Result Value Ref Range WBC 10.4 4.4 - 11.3 x10*3/uL nRBC 0.0 0.0 - 0.0 /100 WBCs RBC 3.95 (L) 4.50 - 5.90 x10*6/uL Hemoglobin 12.0 (L) 13.5 - 17.5 g/dL Hematocrit 36.7 (L) 41.0 - 52.0 % MCV 93 80 - 100 fL MCH 30.4 26.0 - 34.0 pg MCHC 32.7 32.0 - 36.0 g/dL RDW 13.0 11.5 - 14.5 % Platelets 158 150 - 450 x10*3/uL Neutrophils % 73.2 40.0 - 80.0 % Immature Granulocytes %, Automated 0.3 0.0 - 0.9 % Lymphocytes % 12.9 13.0 - 44.0 % Monocytes % 12.0 2.0 - 10.0 % Eosinophils % 0.9 0.0 - 6.0 % Basophils % 0.7 0.0 - 2.0 % Neutrophils Absolute 7.64 (H) 1.60 - 5.50 x10*3/uL Immature Granulocytes Absolute, Automated 0.03 0.00 - 0.50 x10*3/uL Lymphocytes Absolute 1.34 0.80 - 3.00 x10*3/uL Monocytes Absolute 1.25 (H) 0.05 - 0.80 x10*3/uL Eosinophils Absolute 0.09 0.00 - 0.40 x10*3/uL Basophils Absolute 0.07 0.00 - 0.10 x10*3/uL Lactate Result Value Ref Range Lactate 1.6 0.4 - 2.0 mmol/L D-Dimer, VTE Exclusion Result Value Ref Range D-Dimer, Quantitative VTE Exclusion 1,869 (H) <=500 ng/mL FEU Troponin I, High Sensitivity, Initial Result Value Ref Range Troponin I, High Sensitivity 102 (HH) 0 - 20 ng/L SST TOP Result Value Ref Range Extra Tube Hold for add-ons. B-type natriuretic peptide Result Value Ref Range BNP 251 (H) 0 - 99 pg/mL Blood Gas Arterial Result Value Ref Range POCT pH, Arterial 7.36 (L) 7.38 - 7.42 pH POCT pCO2, Arterial 41 38 - 42 mm Hg POCT pO2, Arterial 66 (L) 85 - 95 mm Hg POCT SO2, Arterial 93 (L) 94 - 100 % POCT Oxy Hemoglobin, Arterial 90.6 (L) 94.0 - 98.0 % POCT Base Excess, Arterial -2.2 (L) -2.0 - 3.0 mmol/L POCT HCO3 Calculated, Arterial 23.2 22.0 - 26.0 mmol/L Patient Temperature 37.0 degrees Celsius FiO2 50 % Apparatus CANNULA Troponin, High Sensitivity, 1 Hour Result Value Ref Range Troponin I, High Sensitivity 354 (HH) 0 - 20 ng/L POCT GLUCOSE Result Value Ref Range POCT Glucose 386 (H) 74 - 99 mg/dL Urinalysis with Reflex Microscopic and Culture Result Value Ref Range Color, Urine Yellow Straw, Yellow Appearance, Urine Clear Clear Specific [place], Urine 1.014 1.005 - 1.035 pH, Urine 5.0 5.0, 5.5, 6.0, 6.5, 7.0, 7.5, 8.0 Protein, Urine 100 (2+) (N) NEGATIVE mg/dL Glucose, Urine >=500 (3+) (A) NEGATIVE mg/dL Blood, Urine NEGATIVE NEGATIVE Ketones, Urine 5 (TRACE) (A) NEGATIVE mg/dL Bilirubin, Urine NEGATIVE NEGATIVE Urobilinogen, Urine <2.0 <2.0 mg/dL Nitrite, Urine NEGATIVE NEGATIVE Leukocyte Esterase, Urine NEGATIVE NEGATIVE Extra Urine Dey Tube Result Value Ref Range Extra Tube Hold for add-ons. Urinalysis Microscopic Result Value Ref Range WBC, Urine NONE 1-5, NONE /HPF RBC, Urine NONE NONE, 1-2, 3-5 /HPF Hyaline Casts, Urine OCCASIONAL (A) NONE /LPF SST TOP Result Value Ref Range Extra Tube Hold for add-ons. XR chest 1 view Result Date: 10/11/2023 Interpreted By: Kahlil Fagan, STUDY: XR CHEST 1 VIEW; 10/11/2023 1:30 am INDICATION: Signs/Symptoms:Cough. COMPARISON: Chest radiograph 11/04/2012 ACCESSION NUMBER(S): [id number] ORDERING CLINICIAN: AURY ROUSE FINDINGS: SUPPORT DEVICES: None. CARDIOMEDIASTINAL SILHOUETTE: Cardiomediastinal silhouette is normal in size and configuration. LUNGS: Diffuse interstitial prominence and scattered hazy opacities. No large pleural effusion or discernible pneumothorax. ABDOMEN: No remarkable upper abdominal findings. BONES: No acute osseous abnormality. 1. Diffuse interstitial and scattered hazy opacities. These are nonspecific and may represent atypical infectious or inflammatory process or possibly edema in the appropriate clinical setting. Component may also be related to chronic parenchymal changes. Recommend follow-up to resolution. Signed by: Kahlil Fagan 10/11/2023 1:33 AM Dictation workstation: [id number] Assessment/Plan 77-year-old male, smoker, with a past medical history of insulin-dependent diabetes, hypertension, diabetic neuropathy, chronic kidney disease with a baseline creatinine around 1.8, arthritis and nicotine dependence who presented to the emergency room 43 days history of fever cough chills and shortness of breath. Patient was found to have COVID-19 pneumonia associated with sepsis [tachypnea, tachycardia, hypoxia], hypertensive emergency, hyperglycemia, and elevated troponin. Admit patient to the intensive care unit. Telemetry and vital signs monitoring. Consult critical care. Continue with the BiPAP. Will hold on giving remdesivir given the renal failure. And will wait for further input from critical care. Continue with the ceftriaxone and azithromycin for the possible superimposed bacterial infection. Check procalcitonin level. DuoNebs 4 times a day. Pulmicort twice a day. Dexamethasone 6 mg IV daily. Regarding the elevated troponin, no EKG changes, and patient not having any chest pain. I will consult cardiology. I will give 1 dose aspirin 325 mg. And defer to cardiology any further management. Resume home medications SCDs and heparin for DVT prophylaxis Patient is full code I have reviewed and evaluated the most recent data and results, personally examined the patient, and formulated the plan of care as presented above. Patient is at-risk for clinically significant deterioration / failure due to the above mentioned dysfunctional, unstable organ systems and requires continued critical care treatment. I have personally identified and managed all complex critical care issues to prevent aforementioned clinical deterioration. 60 minutes were spent in the critical care management of the patient excluding billable procedures (This note was generated with voice recognition software and may contain errors including spelling, grammar, syntax and misrecognition of what was dictated, that are not fully corrected) Praful Pineda MD documented in this encounter [facility] Work Phone: 10-11-2023 Emergency department Note Associated Order(s): Critical Care Multiple complaints. This 77-year-old white male presented to the ED via EMS from his home secondary to 2-3-day history fever, chills, cough. States that he is also developed some shortness of breath for the past 24 hours. He denies any history of nausea, vomiting or diarrhea. He also admits to having headaches and bodyaches and generalized weakness. He denies any ill contacts that he knows of. EMS had treated the patient with an albuterol aerosol prior to arrival to the ED and establish an IV. Patient admits to [id number] history of cigarette use and currently smokes 1 pack/day. Activity makes his symptoms worse rest helps to some extent. History provided by: EMS personnel and patient spanish interpreter used: No Physical Exam Vitals and nursing note reviewed. Constitutional: General: He is awake. He is in acute distress. Appearance: Normal appearance. He is overweight. He is ill-appearing. HENT: Head: Normocephalic and atraumatic. Right Ear: External ear normal. Decreased hearing noted. Left Ear: External ear normal. Decreased hearing noted. Nose: Congestion and rhinorrhea present. Rhinorrhea is clear. Mouth/Throat: Lips: [place]. Mouth: Mucous membranes are moist. Pharynx: Oropharynx is clear. No oropharyngeal exudate or posterior oropharyngeal erythema. Eyes: General: Lids are normal. Right eye: No discharge. Left eye: No discharge. Extraocular Movements: Extraocular movements intact. Conjunctiva/sclera: Conjunctivae normal. Pupils: Pupils are equal, round, and reactive to light. Cardiovascular: Rate and Rhythm: Regular rhythm. Tachycardia present. Pulses: Normal pulses. Heart sounds: Normal heart sounds. No murmur heard. No friction rub. No gallop. Pulmonary: Effort: Tachypnea, accessory muscle usage and respiratory distress present. Breath sounds: Normal air entry. No stridor. Examination of the right-lower field reveals decreased breath sounds. Examination of the left-lower field reveals decreased breath sounds. Decreased breath sounds present. No wheezing, rhonchi or rales. Chest: Chest wall: No tenderness. Abdominal: General: Abdomen is flat. Bowel sounds are normal. There is no distension. Palpations: Abdomen is soft. There is no mass. Tenderness: There is no abdominal tenderness. There is no guarding or rebound. Hernia: No hernia is present. Musculoskeletal: General: No swelling, tenderness, deformity or signs of injury. Normal range of motion. Cervical back: Full passive range of motion without pain, normal range of motion and neck supple. Right lower leg: Normal. No edema. Left lower leg: Normal. No edema. Skin: General: Skin is warm and dry. Capillary Refill: Capillary refill takes less than 2 seconds. Coloration: Skin is not jaundiced or pale. Findings: No bruising, erythema, lesion or rash. Neurological: General: No focal deficit present. Mental Status: He is alert and oriented to person, place, and time. GCS: GCS eye subscore is 4. GCS verbal subscore is 5. GCS motor subscore is 6. Cranial Nerves: Cranial nerves 2-12 are intact. No cranial nerve deficit. Sensory: Sensation is intact. No sensory deficit. Motor: Motor function is intact. No weakness. Coordination: Coordination is intact. Coordination normal. Deep Tendon Reflexes: Reflexes normal. Psychiatric: Attention and Perception: Attention and perception normal. Mood and Affect: Mood and affect normal. Speech: Speech normal. Behavior: Behavior normal. Behavior is cooperative. Thought Content: Thought content normal. Cognition and Memory: Cognition and memory normal. Judgment: Judgment normal. Labs Reviewed SARS-COV-2 PCR, SYMPTOMATIC - Abnormal Result Value Coronavirus 2019, PCR Detected (*) Narrative: This assay has received FDA Emergency Use Authorization (EUA) and is only authorized for the duration of time that circumstances exist to justify the authorization of the emergency use of in vitro diagnostic tests for the detection of SARS-CoV-2 virus and/or diagnosis of COVID-19 infection under section 564(b)(1) of the Act, 21 U.S.C. 360bbb-3(b)(1). This assay is an in vitro diagnostic nucleic acid amplification test for the qualitative detection of SARS-CoV-2 from nasopharyngeal specimens and has been validated for use at [facility]. Negative results do not preclude COVID-19 infections and should not be used as the sole basis for diagnosis, treatment, or other management decisions. COMPREHENSIVE METABOLIC PANEL - Abnormal Glucose 344 (*) Sodium 136 Potassium 4.4 Chloride 103 Bicarbonate 22 Anion Gap 15 Urea Nitrogen 30 (*) Creatinine 1.83 (*) eGFR 37 (*) Calcium 8.5 (*) Albumin 3.8 Alkaline Phosphatase 83 Total Protein 6.3 (*) AST 18 Bilirubin, Total 0.4 ALT 13 CBC WITH AUTO DIFFERENTIAL - Abnormal WBC 10.4 nRBC 0.0 RBC 3.95 (*) Hemoglobin 12.0 (*) Hematocrit 36.7 (*) MCV 93 MCH 30.4 MCHC 32.7 RDW 13.0 Platelets 158 Neutrophils % 73.2 Immature Granulocytes %, Automated 0.3 Lymphocytes % 12.9 Monocytes % 12.0 Eosinophils % 0.9 Basophils % 0.7 Neutrophils Absolute 7.64 (*) Immature Granulocytes Absolute, Automated 0.03 Lymphocytes Absolute 1.34 Monocytes Absolute 1.25 (*) Eosinophils Absolute 0.09 Basophils Absolute 0.07 D-DIMER, VTE EXCLUSION - Abnormal D-Dimer, Quantitative VTE Exclusion 1,869 (*) Narrative: The VTE Exclusion D-Dimer assay is reported in ng/mL Fibrinogen Equivalent Units (FEU). Per specifications checker's instructions for use, a value of less than 500 ng/mL (FEU) may help to exclude DVT or PE in outpatients when the assay is used with a clinical pretest probability assessment.(AE must utilize and document eCalc 'Wells Score Deep Vein Thrombosis Risk' for DVT exclusion only. Emergency Department should utilize Guidelines for Emergency Department Use of the VTE Exclusion D-Dimer and Clinical Pretest probability assessment model for DVT or PE exclusion.) SERIAL TROPONIN-INITIAL - Abnormal Troponin I, High Sensitivity 102 (*) Narrative: Less than 99th percentile of normal range cutoff- Female and children under 18 years old <14 ng/L; Male <21 ng/L: Negative Repeat testing should be performed if clinically indicated. Female and children under 18 years old 14-50 ng/L; Male 21-50 ng/L: Consistent with possible cardiac damage and possible increased clinical risk. Serial measurements may help to assess extent of myocardial damage. >50 ng/L: Consistent with cardiac damage, increased clinical risk and myocardial infarction. Serial measurements may help assess extent of myocardial damage. NOTE: Children less than 1 year old may have higher baseline troponin levels and results should be interpreted in conjunction with the overall clinical context. NOTE: Troponin I testing is performed using a different testing methodology at [facility] than at other [facility]. Direct result comparisons should only be made within the same method. SERIAL TROPONIN, 1 HOUR - Abnormal Troponin I, High Sensitivity 354 (*) Narrative: Less than 99th percentile of normal range cutoff- Female and children under 18 years old <14 ng/L; Male <21 ng/L: Negative Repeat testing should be performed if clinically indicated. Female and children under 18 years old 14-50 ng/L; Male 21-50 ng/L: Consistent with possible cardiac damage and possible increased clinical risk. Serial measurements may help to assess extent of myocardial damage. >50 ng/L: Consistent with cardiac damage, increased clinical risk and myocardial infarction. Serial measurements may help assess extent of myocardial damage. NOTE: Children less than 1 year old may have higher baseline troponin levels and results should be interpreted in conjunction with the overall clinical context. NOTE: Troponin I testing is performed using a different testing methodology at [facility] than at other [facility]. Direct result comparisons should only be made within the same method. B-TYPE NATRIURETIC PEPTIDE - Abnormal BNP 251 (*) Narrative: <100 pg/mL - Heart failure unlikely 100-299 pg/mL - Intermediate probability of acute heart failure exacerbation. Correlate with clinical context and patient history. >=300 pg/mL - Heart Failure likely. Correlate with clinical context and patient history. BNP testing is performed using different testing methodology at [facility] than at other [facility]. Direct result comparisons should only be made within the same method. BLOOD GAS ARTERIAL - Abnormal POCT pH, Arterial 7.36 (*) POCT pCO2, Arterial 41 POCT pO2, Arterial 66 (*) POCT SO2, Arterial 93 (*) POCT Oxy Hemoglobin, Arterial 90.6 (*) POCT Base Excess, Arterial -2.2 (*) POCT HCO3 Calculated, Arterial 23.2 Patient Temperature 37.0 FiO2 50 Apparatus CANNULA URINALYSIS WITH REFLEX MICROSCOPIC AND CULTURE - Abnormal Color, Urine Yellow Appearance, Urine Clear Specific [place], Urine 1.014 pH, Urine 5.0 Protein, Urine 100 (2+) (*) Glucose, Urine >=500 (3+) (*) Blood, Urine NEGATIVE Ketones, Urine 5 (TRACE) (*) Bilirubin, Urine NEGATIVE Urobilinogen, Urine <2.0 Nitrite, Urine NEGATIVE Leukocyte Esterase, Urine NEGATIVE PROCALCITONIN - Abnormal Procalcitonin 0.18 (*) Narrative: Procalcitonin (PCT) results measured serially can aid in decision-making for antibiotic discontinuation in patients with suspected or confirmed sepsis in conjunction with additional clinical information. Antibiotic discontinuation may be considered with a change in PCT of >80% from the peak result or when PCT falls below 0.50 ng/mL. Procalcitonin results should not be used in isolation but should be interpreted in conjunction with additional clinical and laboratory findings. Procalcitonin results should not be used to guide the initiation of antibiotic therapy. Falsely low PCT values in the presence of bacterial infection may occur in early infection, with atypical pathogens, localized infections, and subacute infectious endocarditis. Falsely elevated results outside of severe bacterial infection/sepsis may be seen in patients with renal failure or insufficiency, severe trauma or santamaria, recent major abdominal/cardiac surgery, acute multi-organ failure, rarely in patients with medullary thyroid carcinoma and rare neuroendocrine tumors, and non-specific interfering antibodies (heterophile antibodies, rheumatoid factor, human anti-mouse antibodies (HAMA), etc). Performance of the PCT test in pediatric patients (<18yo), women, immunocompromised patients, and patients on immunomodulatory medications has not been evaluated. GLUCOSE - Abnormal Glucose 654 (*) POCT GLUCOSE - Abnormal POCT Glucose 386 (*) POCT GLUCOSE - Abnormal POCT Glucose 562 (*) POCT GLUCOSE - Abnormal POCT Glucose 571 (*) POCT GLUCOSE - Abnormal POCT Glucose >600 (*) POCT GLUCOSE - Abnormal POCT Glucose >600 (*) POCT GLUCOSE - Abnormal POCT Glucose 481 (*) POCT GLUCOSE - Abnormal POCT Glucose 455 (*) POCT GLUCOSE - Abnormal POCT Glucose 385 (*) POCT GLUCOSE - Abnormal POCT Glucose 407 (*) POCT GLUCOSE - Abnormal POCT Glucose 357 (*) POCT GLUCOSE - Abnormal POCT Glucose 271 (*) POCT GLUCOSE - Abnormal POCT Glucose 203 (*) POCT GLUCOSE - Abnormal POCT Glucose 132 (*) POCT GLUCOSE - Abnormal POCT Glucose 127 (*) URINALYSIS MICROSCOPIC WITH REFLEX CULTURE - Abnormal WBC, Urine NONE RBC, Urine NONE Hyaline Casts, Urine OCCASIONAL (*) BLOOD CULTURE - Normal Blood Culture Loaded on Instrument - Culture in progress BLOOD CULTURE - Normal Blood Culture Loaded on Instrument - Culture in progress INFLUENZA A AND B PCR - Normal Flu A Result Not Detected Flu B Result Not Detected Narrative: This assay is an in vitro diagnostic multiplex nucleic acid amplification test for the detection and discrimination of Influenza A & B from nasopharyngeal specimens, and has been validated for use at [facility]. Negative results do not preclude Influenza A/B infections, and should not be used as the sole basis for diagnosis, treatment, or other management decisions. If Influenza A/B and RSV PCR results are negative, testing for Parainfluenza virus, Adenovirus and Metapneumovirus is routinely performed for [facility] [place], and is available on other patients by placing an add-on request. RSV PCR - Normal RSV PCR Not Detected Narrative: This assay is an FDA-cleared, in vitro diagnostic nucleic acid amplification test for the detection of RSV from nasopharyngeal specimens, and has been validated for use at [facility]. Negative results do not preclude RSV infections, and should not be used as the sole basis for diagnosis, treatment, or other management decisions. If Influenza A/B and RSV PCR results are negative, testing for Parainfluenza virus, Adenovirus and Metapneumovirus is routinely performed for pediatric oncology and intensive care [place]patients [place] [facility] and is available on other patients by placing an add-on request. LACTATE - Normal Lactate 1.6 Narrative: Venipuncture immediately after or during the administration of Metamizole may lead to falsely low results. Testing should be performed immediately prior to Metamizole dosing. URINALYSIS WITH REFLEX MICROSCOPIC AND CULTURE Narrative: The following orders were created for panel order Urinalysis with Reflex Microscopic and Culture. Procedure Abnormality Status --------- ------ Urinalysis with Reflex M...[[id number]] Abnormal Final result Extra Urine Dey Tube[[id number]] Final result Please view results for these tests on the individual orders. TROPONIN SERIES- (INITIAL, 1 HR) Narrative: The following orders were created for panel order Troponin I Series, High Sensitivity (0, 1 HR). Procedure Abnormality Status --------- ------ Troponin I, High Sensiti...[[id number]] Abnormal Final result Troponin, High Sensitivi...[[id number]] Abnormal Final result Please view results for these tests on the individual orders. EXTRA URINE DEY TUBE Extra Tube Hold for add-ons. BASIC METABOLIC PANEL CBC WITH AUTO DIFFERENTIAL POCT GLUCOSE POCT GLUCOSE POCT GLUCOSE POCT GLUCOSE POCT GLUCOSE POCT GLUCOSE METER POCT GLUCOSE METER POCT GLUCOSE METER Transthoracic Echo (TTE) Complete Final Result XR chest 1 view Final Result 1. Diffuse interstitial and scattered hazy opacities. These are nonspecific and may represent atypical infectious or inflammatory process or possibly edema in the appropriate clinical setting. Component may also be related to chronic parenchymal changes. Recommend follow-up to resolution. Signed by: Kahlil Fagan 10/11/2023 1:33 AM Dictation workstation: [id number] Critical Care Performed by: Aury Rouse DO Authorized by: Aury Rouse DO Critical care provider statement: Critical care time (minutes): 60 Critical care time was exclusive of: Separately billable procedures and treating other patients Critical care was necessary to treat or prevent imminent or life-threatening deterioration of the following conditions: Respiratory failure and sepsis Critical care was time spent personally by me on the following activities: Development of treatment plan with patient or surrogate, evaluation of patient's response to treatment, examination of patient, obtaining history from patient or surrogate, ordering and performing treatments and interventions, ordering and review of laboratory studies, ordering and review of radiographic studies, pulse oximetry and re-evaluation of patient's condition I assumed direction of critical care for this patient from another provider in my specialty: no Care discussed with: admitting provider Medical Decision Making Patient was seen and evaluated due to complaints of fever, chills, cough and increasing shortness of breath for the past 2 days. Patient presented to the ED after being treated aerosol treatment with tachypnea at rest. Initial evaluation revealed some and expiratory wheezing. Patient was tachycardic and initially treated with IV fluids reassessment revealed evidence to sound very wet concerning for possible CHF. Chest x-ray revealed evidence of CHF subsequently patient was treated with IV Lasix but because of patient's renal function I had to double the dose. The patient was then treated with aerosols and an ABG was obtained patient ABG revealed no retention of CO2 with with evidence of compensation. The patient continued to have tachypnea and respiratory distress and was subsequent treated with BiPAP because of his CHF though patient had no previous history of CHF. Patient's D-dimer was high though I do not feel clinically the patient would be able to lay on his back to have CT scan imaging. The patient had blood cultures obtained and was treated for possible pneumonia and later diagnosed with COVID prior to being admitted to the ICU for further care. Amount and/or Complexity of Data Reviewed ECG/medicine tests: independent interpretation performed. Details: EKG was interpreted by myself at 1:20 AM reveals sinus tachycardia 113 bpm with Q waves in the anterior precordial leads. The MO interval is 148 ms. QRS durations 82 ms. QTc is 455 ms axis is 39 degrees. Diagnoses as of 10/12/23514 COVID-19 Acute respiratory failure with hypoxia (CMS/HCC) Acute congestive heart failure, unspecified heart failure type (CMS/HCC) Pneumonia of both lungs due to infectious organism, unspecified part of lung Aury Rouse DO 10/12/23514 Pt brought in via EMS for fevers and chills. Pt reports being ill for the last 2-3 days. Pt states that he has been having fevers, chills, weakness, fatigue, headaches, body aches with some SOB. Pt was given a breathing treatment in route and states that it did help a little. documented in this encounter [facility] Work Phone: 10-11-2023 Emergency department Triage note Pt brought in via EMS for fevers and chills. Pt reports being ill for the last 2-3 days. Pt states that he has been having fevers, chills, weakness, fatigue, headaches, body aches with some SOB. Pt was given a breathing treatment in route and states that it did help a little. [facility] Work Phone: 10-11-2023 Physician Emergency department Note Associated Order(s): Critical Care Multiple complaints. This 77-year-old white male presented to the ED via EMS from his home secondary to 2-3-day history fever, chills, cough. States that he is also developed some shortness of breath for the past 24 hours. He denies any history of nausea, vomiting or diarrhea. He also admits to having headaches and bodyaches and generalized weakness. He denies any ill contacts that he knows of. EMS had treated the patient with an albuterol aerosol prior to arrival to the ED and establish an IV. Patient admits to [id number] history of cigarette use and currently smokes 1 pack/day. Activity makes his symptoms worse rest helps to some extent. History provided by: EMS personnel and patient spanish interpreter used: No Physical Exam Vitals and nursing note reviewed. Constitutional: General: He is awake. He is in acute distress. Appearance: Normal appearance. He is overweight. He is ill-appearing. HENT: Head: Normocephalic and atraumatic. Right Ear: External ear normal. Decreased hearing noted. Left Ear: External ear normal. Decreased hearing noted. Nose: Congestion and rhinorrhea present. Rhinorrhea is clear. Mouth/Throat: Lips: [place]. Mouth: Mucous membranes are moist. Pharynx: Oropharynx is clear. No oropharyngeal exudate or posterior oropharyngeal erythema. Eyes: General: Lids are normal. Right eye: No discharge. Left eye: No discharge. Extraocular Movements: Extraocular movements intact. Conjunctiva/sclera: Conjunctivae normal. Pupils: Pupils are equal, round, and reactive to light. Cardiovascular: Rate and Rhythm: Regular rhythm. Tachycardia present. Pulses: Normal pulses. Heart sounds: Normal heart sounds. No murmur heard. No friction rub. No gallop. Pulmonary: Effort: Tachypnea, accessory muscle usage and respiratory distress present. Breath sounds: Normal air entry. No stridor. Examination of the right-lower field reveals decreased breath sounds. Examination of the left-lower field reveals decreased breath sounds. Decreased breath sounds present. No wheezing, rhonchi or rales. Chest: Chest wall: No tenderness. Abdominal: General: Abdomen is flat. Bowel sounds are normal. There is no distension. Palpations: Abdomen is soft. There is no mass. Tenderness: There is no abdominal tenderness. There is no guarding or rebound. Hernia: No hernia is present. Musculoskeletal: General: No swelling, tenderness, deformity or signs of injury. Normal range of motion. Cervical back: Full passive range of motion without pain, normal range of motion and neck supple. Right lower leg: Normal. No edema. Left lower leg: Normal. No edema. Skin: General: Skin is warm and dry. Capillary Refill: Capillary refill takes less than 2 seconds. Coloration: Skin is not jaundiced or pale. Findings: No bruising, erythema, lesion or rash. Neurological: General: No focal deficit present. Mental Status: He is alert and oriented to person, place, and time. GCS: GCS eye subscore is 4. GCS verbal subscore is 5. GCS motor subscore is 6. Cranial Nerves: Cranial nerves 2-12 are intact. No cranial nerve deficit. Sensory: Sensation is intact. No sensory deficit. Motor: Motor function is intact. No weakness. Coordination: Coordination is intact. Coordination normal. Deep Tendon Reflexes: Reflexes normal. Psychiatric: Attention and Perception: Attention and perception normal. Mood and Affect: Mood and affect normal. Speech: Speech normal. Behavior: Behavior normal. Behavior is cooperative. Thought Content: Thought content normal. Cognition and Memory: Cognition and memory normal. Judgment: Judgment normal. Labs Reviewed SARS-COV-2 PCR, SYMPTOMATIC - Abnormal Result Value Coronavirus 2019, PCR Detected (*) Narrative: This assay has received FDA Emergency Use Authorization (EUA) and is only authorized for the duration of time that circumstances exist to justify the authorization of the emergency use of in vitro diagnostic tests for the detection of SARS-CoV-2 virus and/or diagnosis of COVID-19 infection under section 564(b)(1) of the Act, 21 U.S.C. 360bbb-3(b)(1). This assay is an in vitro diagnostic nucleic acid amplification test for the qualitative detection of SARS-CoV-2 from nasopharyngeal specimens and has been validated for use at [facility]. Negative results do not preclude COVID-19 infections and should not be used as the sole basis for diagnosis, treatment, or other management decisions. COMPREHENSIVE METABOLIC PANEL - Abnormal Glucose 344 (*) Sodium 136 Potassium 4.4 Chloride 103 Bicarbonate 22 Anion Gap 15 Urea Nitrogen 30 (*) Creatinine 1.83 (*) eGFR 37 (*) Calcium 8.5 (*) Albumin 3.8 Alkaline Phosphatase 83 Total Protein 6.3 (*) AST 18 Bilirubin, Total 0.4 ALT 13 CBC WITH AUTO DIFFERENTIAL - Abnormal WBC 10.4 nRBC 0.0 RBC 3.95 (*) Hemoglobin 12.0 (*) Hematocrit 36.7 (*) MCV 93 MCH 30.4 MCHC 32.7 RDW 13.0 Platelets 158 Neutrophils % 73.2 Immature Granulocytes %, Automated 0.3 Lymphocytes % 12.9 Monocytes % 12.0 Eosinophils % 0.9 Basophils % 0.7 Neutrophils Absolute 7.64 (*) Immature Granulocytes Absolute, Automated 0.03 Lymphocytes Absolute 1.34 Monocytes Absolute 1.25 (*) Eosinophils Absolute 0.09 Basophils Absolute 0.07 D-DIMER, VTE EXCLUSION - Abnormal D-Dimer, Quantitative VTE Exclusion 1,869 (*) Narrative: The VTE Exclusion D-Dimer assay is reported in ng/mL Fibrinogen Equivalent Units (FEU). Per specifications checker's instructions for use, a value of less than 500 ng/mL (FEU) may help to exclude DVT or PE in outpatients when the assay is used with a clinical pretest probability assessment.([facility] must utilize and document eCalc 'Wells Score Deep Vein Thrombosis Risk' for DVT exclusion only. Emergency Department should utilize Guidelines for Emergency Department Use of the VTE Exclusion D-Dimer and Clinical Pretest probability assessment model for DVT or PE exclusion.) SERIAL TROPONIN-INITIAL - Abnormal Troponin I, High Sensitivity 102 (*) Narrative: Less than 99th percentile of normal range cutoff- Female and children under 18 years old <14 ng/L; Male <21 ng/L: Negative Repeat testing should be performed if clinically indicated. Female and children under 18 years old 14-50 ng/L; Male 21-50 ng/L: Consistent with possible cardiac damage and possible increased clinical risk. Serial measurements may help to assess extent of myocardial damage. >50 ng/L: Consistent with cardiac damage, increased clinical risk and myocardial infarction. Serial measurements may help assess extent of myocardial damage. NOTE: Children less than 1 year old may have higher baseline troponin levels and results should be interpreted in conjunction with the overall clinical context. NOTE: Troponin I testing is performed using a different testing methodology at [facility] than [facility]. Direct result comparisons should only be made within the same method. SERIAL TROPONIN, 1 HOUR - Abnormal Troponin I, High Sensitivity 354 (*) Narrative: Less than 99th percentile of normal range cutoff- Female and children under 18 years old <14 ng/L; Male <21 ng/L: Negative Repeat testing should be performed if clinically indicated. Female and children under 18 years old 14-50 ng/L; Male 21-50 ng/L: Consistent with possible cardiac damage and possible increased clinical risk. Serial measurements may help to assess extent of myocardial damage. >50 ng/L: Consistent with cardiac damage, increased clinical risk and myocardial infarction. Serial measurements may help assess extent of myocardial damage. NOTE: Children less than 1 year old may have higher baseline troponin levels and results should be interpreted in conjunction with the overall clinical context. NOTE: Troponin I testing is performed using a different testing methodology at [facility] than at other [facility]. Direct result comparisons should only be made within the same method. B-TYPE NATRIURETIC PEPTIDE - Abnormal BNP 251 (*) Narrative: <100 pg/mL - Heart failure unlikely 100-299 pg/mL - Intermediate probability of acute heart failure exacerbation. Correlate with clinical context and patient history. >=300 pg/mL - Heart Failure likely. Correlate with clinical context and patient history. BNP testing is performed using different testing methodology at [facility] than at other [facility]. Direct result comparisons should only be made within the same method. BLOOD GAS ARTERIAL - Abnormal POCT pH, Arterial 7.36 (*) POCT pCO2, Arterial 41 POCT pO2, Arterial 66 (*) POCT SO2, Arterial 93 (*) POCT Oxy Hemoglobin, Arterial 90.6 (*) POCT Base Excess, Arterial -2.2 (*) POCT HCO3 Calculated, Arterial 23.2 Patient Temperature 37.0 FiO2 50 Apparatus CANNULA URINALYSIS WITH REFLEX MICROSCOPIC AND CULTURE - Abnormal Color, Urine Yellow Appearance, Urine Clear Specific [place], Urine 1.014 pH, Urine 5.0 Protein, Urine 100 (2+) (*) Glucose, Urine >=500 (3+) (*) Blood, Urine NEGATIVE Ketones, Urine 5 (TRACE) (*) Bilirubin, Urine NEGATIVE Urobilinogen, Urine <2.0 Nitrite, Urine NEGATIVE Leukocyte Esterase, Urine NEGATIVE PROCALCITONIN - Abnormal Procalcitonin 0.18 (*) Narrative: Procalcitonin (PCT) results measured serially can aid in decision-making for antibiotic discontinuation in patients with suspected or confirmed sepsis in conjunction with additional clinical information. Antibiotic discontinuation may be considered with a change in PCT of >80% from the peak result or when PCT falls below 0.50 ng/mL. Procalcitonin results should not be used in isolation but should be interpreted in conjunction with additional clinical and laboratory findings. Procalcitonin results should not be used to guide the initiation of antibiotic therapy. Falsely low PCT values in the presence of bacterial infection may occur in early infection, with atypical pathogens, localized infections, and subacute infectious endocarditis. Falsely elevated results outside of severe bacterial infection/sepsis may be seen in patients with renal failure or insufficiency, severe trauma or santamaria, recent major abdominal/cardiac surgery, acute multi-organ failure, rarely in patients with medullary thyroid carcinoma and rare neuroendocrine tumors, and non-specific interfering antibodies (heterophile antibodies, rheumatoid factor, human anti-mouse antibodies (HAMA), etc). Performance of the PCT test in pediatric patients (<18yo), women, immunocompromised patients, and patients on immunomodulatory medications has not been evaluated. GLUCOSE - Abnormal Glucose 654 (*) POCT GLUCOSE - Abnormal POCT Glucose 386 (*) POCT GLUCOSE - Abnormal POCT Glucose 562 (*) POCT GLUCOSE - Abnormal POCT Glucose 571 (*) POCT GLUCOSE - Abnormal POCT Glucose >600 (*) POCT GLUCOSE - Abnormal POCT Glucose >600 (*) POCT GLUCOSE - Abnormal POCT Glucose 481 (*) POCT GLUCOSE - Abnormal POCT Glucose 455 (*) POCT GLUCOSE - Abnormal POCT Glucose 385 (*) POCT GLUCOSE - Abnormal POCT Glucose 407 (*) POCT GLUCOSE - Abnormal POCT Glucose 357 (*) POCT GLUCOSE - Abnormal POCT Glucose 271 (*) POCT GLUCOSE - Abnormal POCT Glucose 203 (*) POCT GLUCOSE - Abnormal POCT Glucose 132 (*) POCT GLUCOSE - Abnormal POCT Glucose 127 (*) URINALYSIS MICROSCOPIC WITH REFLEX CULTURE - Abnormal WBC, Urine NONE RBC, Urine NONE Hyaline Casts, Urine OCCASIONAL (*) BLOOD CULTURE - Normal Blood Culture Loaded on Instrument - Culture in progress BLOOD CULTURE - Normal Blood Culture Loaded on Instrument - Culture in progress INFLUENZA A AND B PCR - Normal Flu A Result Not Detected Flu B Result Not Detected Narrative: This assay is an in vitro diagnostic multiplex nucleic acid amplification test for the detection and discrimination of Influenza A & B from nasopharyngeal specimens, and has been validated for use at [facility]. Negative results do not preclude Influenza A/B infections, and should not be used as the sole basis for diagnosis, treatment, or other management decisions. If Influenza A/B and RSV PCR results are negative, testing for Parainfluenza virus, Adenovirus and Metapneumovirus is routinely performed for [facility] [place], and is available on other patients by placing an add-on request. RSV PCR - Normal RSV PCR Not Detected Narrative: This assay is an FDA-cleared, in vitro diagnostic nucleic acid amplification test for the detection of RSV from nasopharyngeal specimens, and has been validated for use at [facility]. Negative results do not preclude RSV infections, and should not be used as the sole basis for diagnosis, treatment, or other management decisions. If Influenza A/B and RSV PCR results are negative, testing for Parainfluenza virus, Adenovirus and Metapneumovirus is routinely performed for pediatric oncology and intensive care inpatients at [facility], and is available on other patients by placing an add-on request. LACTATE - Normal Lactate 1.6 Narrative: Venipuncture immediately after or during the administration of Metamizole may lead to falsely low results. Testing should be performed immediately prior to Metamizole dosing. URINALYSIS WITH REFLEX MICROSCOPIC AND CULTURE Narrative: The following orders were created for panel order Urinalysis with Reflex Microscopic and Culture. Procedure Abnormality Status --------- ------ Urinalysis with Reflex M...[[id number]] Abnormal Final result Extra Urine Dey Tube[[id number]] Final result Please view results for these tests on the individual orders. TROPONIN SERIES- (INITIAL, 1 HR) Narrative: The following orders were created for panel order Troponin I Series, High Sensitivity (0, 1 HR). Procedure Abnormality Status --------- ------ Troponin I, High Sensiti...[[id number]] Abnormal Final result Troponin, High Sensitivi...[[id number]] Abnormal Final result Please view results for these tests on the individual orders. EXTRA URINE DEY TUBE Extra Tube Hold for add-ons. BASIC METABOLIC PANEL CBC WITH AUTO DIFFERENTIAL POCT GLUCOSE POCT GLUCOSE POCT GLUCOSE POCT GLUCOSE POCT GLUCOSE POCT GLUCOSE METER POCT GLUCOSE METER POCT GLUCOSE METER Transthoracic Echo (TTE) Complete Final Result XR chest 1 view Final Result 1. Diffuse interstitial and scattered hazy opacities. These are nonspecific and may represent atypical infectious or inflammatory process or possibly edema in the appropriate clinical setting. Component may also be related to chronic parenchymal changes. Recommend follow-up to resolution. Signed by: Kahlil Fagan 10/11/2023 1:33 AM Dictation workstation: [id number] Critical Care Performed by: Aury Rouse DO Authorized by: Aury Rouse DO Critical care provider statement: Critical care time (minutes): 60 Critical care time was exclusive of: Separately billable procedures and treating other patients Critical care was necessary to treat or prevent imminent or life-threatening deterioration of the following conditions: Respiratory failure and sepsis Critical care was time spent personally by me on the following activities: Development of treatment plan with patient or surrogate, evaluation of patient's response to treatment, examination of patient, obtaining history from patient or surrogate, ordering and performing treatments and interventions, ordering and review of laboratory studies, ordering and review of radiographic studies, pulse oximetry and re-evaluation of patient's condition I assumed direction of critical care for this patient from another provider in my specialty: no Care discussed with: admitting provider Medical Decision Making Patient was seen and evaluated due to complaints of fever, chills, cough and increasing shortness of breath for the past 2 days. Patient presented to the ED after being treated aerosol treatment with tachypnea at rest. Initial evaluation revealed some and expiratory wheezing. Patient was tachycardic and initially treated with IV fluids reassessment revealed evidence to sound very wet concerning for possible CHF. Chest x-ray revealed evidence of CHF subsequently patient was treated with IV Lasix but because of patient's renal function I had to double the dose. The patient was then treated with aerosols and an ABG was obtained patient ABG revealed no retention of CO2 with with evidence of compensation. The patient continued to have tachypnea and respiratory distress and was subsequent treated with BiPAP because of his CHF though patient had no previous history of CHF. Patient's D-dimer was high though I do not feel clinically the patient would be able to lay on his back to have CT scan imaging. The patient had blood cultures obtained and was treated for possible pneumonia and later diagnosed with COVID prior to being admitted to the ICU for further care. Amount and/or Complexity of Data Reviewed ECG/medicine tests: independent interpretation performed. Details: EKG was interpreted by myself at 1:20 AM reveals sinus tachycardia 113 bpm with Q waves in the anterior precordial leads. The MO interval is 148 ms. QRS durations 82 ms. QTc is 455 ms axis is 39 degrees. Diagnoses as of 10/12/23514 COVID-19 Acute respiratory failure with hypoxia (CMS/HCC) Acute congestive heart failure, unspecified heart failure type (CMS/HCC) Pneumonia of both lungs due to infectious organism, unspecified part of lung Aury Rouse DO 10/12/23514 [facility] Work Phone: 10-08-2023 History of Present illness Narrative Images from the original note were not included. Patient ID: Serena Fernandes is a 77 y.o. male Subjective: HPI: Serena Fernandes presents for follow-up of Type 1 diabetes The initial diagnosis of diabetes was made 28 years ago in 1994. Disease course has been stable. Mr. Fernandes is a 77-year-old male patient who presents the office for a follow-up of his type 1 diabetes. Patient's most recent hemoglobin A1c is 7.4%. Patient reports that he does follow a diabetic diet. His weight stable from his last visit with us. Complications from his diabetes includes neuropathy. He denies nephropathy or retinopathy. Pertinent negatives for diabetes include: no chest pain no shortness of breath no polyuria, polydipsia, polyphagia no nausea or vomiting no blurred vision no weight loss Pertinent positives for diabetes include: reports recent hypoglycemia Hypoglycemia symptoms include vision changes. Patient does not have hypoglycemic unawareness. He does not usually feel symptoms until about 65.He will wake up during night if he has low BG. He had low BG this AM; sensed with blurred vision. Diabetic complications include diabetic neuropathy Pertinent negatives for diabetic complications include no: diabetic nephropathy and diabetic retinopathy Current diabetic treatment includes insulin injections Self Monitored blood glucose levels Patient has been checking BG TID. Breakfast: 47-180 Lunch: - Supper: 49-252 Bedtime: 54-265 *Blood sugar records were brought with the patient to his appointment today and reviewed. Patient's weight is stable Patient is following a diabetic diet. Meal planning includes avoidance of concentrated sweets. An PASCALE inhibitor/angiotensin II receptor deepali is being taken. Patient does not see a director of gift planning. Eye exam is current. Currently taking: No oral hypoglycemic medications Humalog insulin: 7 units at breakfast; 8 units at lunch; 8-9 units at supper Lantus insulin: 15 units at bedtime Outpatient Medications Marked as Taking for the 10/08/23 encounter (Office Visit) with Mary Yan MD: amLODIPine (NORVASC) 10 MG tablet, Take 1 (one) tablet (10 mg total) by mouth daily . blood sugar diagnostic (Contour Next Test Strips) strips, Use as directed 4 times per day. Dx E10.9 Patient with type 1 DM on insulin with hypoglycemia. Needs to check BG QID; takes insulin QID . insulin glargine (Lantus Solostar U-100 Insulin) 100 unit/mL (3 mL) InPn, Inject 14 (fourteen) Units under the skin nightly . insulin lispro (HumaLOG KwikPen Insulin) 100 unit/mL InPn, Uses approx. 35 units daily. DX code E 10.65 . lisinopriL-hydrochlorothiazide (PRINZIDE,ZESTORETIC) 20-12.5 mg per tablet, Take 1 (one) tablet by mouth daily . pen needle, diabetic (BD Ultra-Fine Jolynn Pen Needle) 32 gauge x 5/32 Ndle, Use as directed 4x daily DX code E10.65 . tamsulosin (FLOMAX) 0.4 mg capsule, Review of Systems: Review of Systems Constitutional: Negative for appetite change, fatigue and unexpected weight change. Eyes: Negative for visual disturbance. Respiratory: Negative for shortness of breath. Cardiovascular: Negative for chest pain and leg swelling. Gastrointestinal: Negative for constipation, diarrhea, nausea and vomiting. Endocrine: Negative for polydipsia, polyphagia and polyuria. Genitourinary: Negative for frequency. Musculoskeletal: Positive for back pain. Hip pain Skin: Negative for wound. Neurological: Positive for numbness. Negative for headaches. Psychiatric/Behavioral: Negative for sleep disturbance. The following portions of the patient's history were reviewed and updated as appropriate: allergies, current medications, past family history, past medical history, past social history, past surgical history and problem list. Objective: BP (!) 199/66 Pulse 67 Wt 72.1 kg (159 lb) BMI 24.18 kg/m Wt Readings from Last 3 Encounters: 10/08/23 72.1 kg (159 lb) 06/21/23 71.7 kg (158 lb) 02/19/23 72.6 kg (160 lb) Recheck BP 162/75--67 Physical Exam: Physical Exam Vitals reviewed. Constitutional: Appearance: He is well-developed. HENT: Head: Normocephalic. Eyes: General: No scleral icterus. Conjunctiva/sclera: Conjunctivae normal. Cardiovascular: Rate and Rhythm: Normal rate and regular rhythm. Heart sounds: Normal heart sounds. Pulmonary: Effort: Pulmonary effort is normal. Breath sounds: Normal breath sounds. Skin: General: Skin is warm and dry. Findings: No erythema. Neurological: Mental Status: He is alert and oriented to person, place, and time. Lab Review 09/27/2023 Hemoglobin A1c 7.4% Sodium 143, potassium 4.5, creatinine 1.77, estimated GFR 39 AST 13, ALT 10 Total cholesterol 156, triglycerides 63, HDL 50, LDL 93 TSH 0.88, FT4--0.87 06/11/23 Hgb A1c: 7.6% Creat: 1.85; eGFR: 36 AST: 16; ALT: 12 K: 4.4 02/12/23 Hgb A1c: 7.7% Creat: 1.69; eGFR: 41 AST: 13; ALT: 12 K: 4.8 CBC: WBC:7.7; Hgb: 12.6; Hct: 39.5; Plt: 229 Tchol: 154; Tri ; HDL: 43 ; LDL: 96 TSH: 0.73 ; FreeT4: 1.16 Microalbumin/creatinine Ratio: 195.3 PSA: 3.14 10/12/22 Hgb A1c: 7.8% Creat: 1.53; eGFR: 46 AST: 15; ALT: 12 K: 4.2 06/08/22 Hgb A1c: 8.1% Creat: 1.29; eGFR: 57 AST: 16; ALT: 12 K: 4.3 CBC: WBC:8.5; Hgb: 14.2; Hct: 41.9; Plt: 221 PSA: 15.89 02/04/22 HgbA1c 7.6% Creat 1.09, Na 140, K 3.8, eGFR 69 AST 14, ALT 11 TChol 161, TG 52, HDL 51, LDL 100 10/13/21 Hgb A1c: 7.4% Creat: 1.05; eGFR: >60 AST: 15; ALT: 9 K: 3.6 TSH: 1.04 ; FreeT4: 0.98 06/11/21 Hgb A1c: 7.5% Creat: 1.16; eGFR: >60 AST: 13; ALT: 10 K: 3.8 CBC: WBC:8.40; Hgb: 13.0; Hct: 39.8; Plt: 228 Tchol: 150; Tri ; HDL: 42 ; LDL: 92 02/11/21 HgbA1c 7.4% Creat 1.08, Na 138, K 4.2 AST 15, ALT 11 TSH 0.85, FT4--0.93 10/03/20 Hgb A1c: 8.3% Creat: 1.04; eGFR: >60 AST: 14; ALT: 10 K: 3.8 Tchol: 160; Tri ; HDL: 44 ; LDL: 91 06/10/20 Hgb A1c: 8.1% Creat: 1.01; eGFR: >60 AST: 16; ALT: 12 K: 4.0 CBC: WBC:8.20; Hgb: 14.1; Hct: 42.3; Plt: 216 TSH: 0.68 ; FreeT4: 0.97 03/11/2020 Hgb A1c: 7.5% Creat: 1.07; eGFR: >60 AST: 16; ALT: 13 K: 3.9 11/03/19 Hgb A1c: 8.4% Creat: 1.08; eGFR: >60 AST: 14; ALT: 10 K: 3.9 Tchol: 163; Tri ; HDL: 42 ; LDL: 103 07/04/2019 Hemoglobin A1c 8.3% Creatinine 1.00 GFR greater than 60 AST 18 ALT 15 PSA 6.1 WBC 8 hemoglobin 13 hematocrit 40 platelets 218 03/03/19 Hemoglobin A1c 8.4% Creatinine 1.0, sodium 138, potassium 4.2, estimated GFR greater than 60 AST 16, ALT 13 Total cholesterol 164, triglycerides 66, HDL 53, LDL 98 WBC 7.5, hemoglobin 14.1, hematocrit 41.7, platelet count 218,000 TSH 0.52, FT4--0.98 Micro 11/creatinine ratio 95 11/02/2018: Hemoglobin A1c 8.4% Creatinine 1.2, BUN 23, GFR greater than 60 AST 17 ALT 18 06/27/18 Hgb A1c: 8.2% Creat: 1.0; eGFR: >60 AST: 19; ALT: 17 K: 4.2 CBC: WBC:7.9; Hgb: 14.0; Hct: 42.0; Plt: 213 Tchol: 162; Tri ; HDL: 50 ; LDL: 98 TSH: 0.88; FreeT4: 0.95 Microalbumin/creatinine Ratio: 93 02/18/18 ([facility]) Hgb A1C 7.6% Cr 1.0, EGFR >60, K 4.0 AST 21, ALT 16 PSA 4.58 (nml range 0-6.5) 10/18/17 HgbA1C 8.3% Creat 1.1 K 4.1, eGFR >60 Assessment: Dx: 1. 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) 3. Essential hypertension 4. Pure hypercholesterolemia Type 1 diabetes, under good control Serena Fernandes presents for follow-up of Type 1 diabetes Patient is currently managed with: Humalog insulin: 7 units at breakfast; 8 units at lunch; 8-9 units at supper; Lantus insulin: 15 units at bedtime . Most recent Hgb A1c is 7.4%. Reports occasional lows in the early AM and during the day. States if he is low in early AM, he often has visual blurring and his assists him with juice or other carb source. Typically eats a snack if BG <150 at HS. PLAN: See below. Reduce Lantus to 12-14 units. Try having a juice box at the bedside for hypoglycemia at night. 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 Had bilat cataract extraction Dr. Lopez. Sees Dr. Browne in [place] every year routinely.Has blurred vision with low BG Nephropathy: Positive Creat: 1.77; eGFR: 39 10/23 ; Mialb/creat ratio:195 on 02/21, patient takes lisinopril. Peripheral Neuropathy: Positive Reports bilateral numbness and tingling in feet intermittently Autonomic Neuropathy: Negative Patient aware of lows. He develops symptoms at 65-70. However, has had some low BG in 40-50 range; may be developing some hypoglycemia unawareness. Discussed importance of carrying treatment for hypoglycemia at all times.. Patient is not interested in the sensor at this time. Hyperlipidemia: Positive Currently taking: No lipid lowering agents. LFT's WNL. Unable to tolerate statins. 09/27/23 AST 13, ALT 10 Total cholesterol 156, triglycerides 63, HDL 50, LDL 93 Hypertension: Positive. Currently taking: amlodipine, hydrochlorothiazide (HCTZ) and lisinopril . Goal <130/80. He reports his blood pressure has been elevated at home also. Plan: Add lisinopril 10 mg daily to his current lisinopril 20/hydrochlorothiazide 12.5 mg tablet. He is to report his blood pressures in a few weeks. We may need to change him to lisinopril 30-40 mg tablet plus a separate hydrochlorothiazide 12.5 mg tablet. BP: (!) 199/66; BP 162/75--67 Cardiac: Negative Denies Chest pain or SOB at this time. Vascular: Negative ; has some mild edema. Positive carotid stenosis.+ carotid bruits bilaterally. US repeated 02/04/23: Right. * Less than 50% stenosis in the right internal carotid artery. * Right vertebral artery is patent with antegrade flow. * No evidence of hemodynamically significant stenosis in the right common carotid, external carotid and subclavian arteries. * Left. * 50-69% stenosis in the left internal carotid artery. * Left vertebral artery is patent with antegrade flow. * Elevated velocity suggestive of stenosis in the left subclavian and external carotid arteries. * No evidence of hemodynamically significant stenosis in the left common carotid artery. * Due to diffuse calcific plaque formation is noted of the left proximal internal and external carotid arteries velocities may be underestimated. Recommendations * Based upon this study, Advanced Carotid Imaging does not appear to be warranted. Clinical correlation advised. Feet: Negative sores or lesions at this time. Last foot exam: 10/08/23 Thyroid: Negative 09/27/23 TSH 0.88, FT4--0.87 Other: PSA: PSA: 3.14 02/21 15.89 06/08/22 (ref range 0-4.0) 6.16 07/04/19 (<6.60 is WNL) 4.58 on 02/18/18 4.66 02/05/17; (2.82 12/27/15; 04/01/15: 3.18; 04/03/14: 2.78; 03/11: 1.59) He reports he has been started on Flomax; PSA elevated on labs 8.8.22. He was referred to Dr. Melendez in June 2022. He reports their office called, but he decided not to mess with that right now . 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 Sciatica/leg pain: He states he has spinal stenosis, and legs are getting weaker. He sometimes feels off balance, unsteady. He also reports tremor of hands when writing. He has had physical therapy in past for spinal stenosis. However, he does not feel that he needs further neurologic evaluation at this time. Reports falling in the bathtub summer 2022. 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 Rx changes: See insulin dose adjustments below Humalog insulin: 7 units at breakfast; 8 units at lunch; 8-9 units at supper Lantus insulin: 12-14 units at bedtime 2. Education: Reviewed ABCs of diabetes management (respective goals in parentheses): A1C (7.0-8.0), blood pressure (<130/80), and cholesterol (LDL <100). 3. Compliance at present is estimated to be good. Efforts to improve compliance (if necessary) will be directed at dietary modifications: Limit portion sizes, increased exercise and regular blood sugar monitorin times daily. 4. Follow up: 4 months 5. Record blood sugar readings as instructed. Call if BG consistently <70 or >250. [phone] Continue to check blood sugar 3 times daily. Patient has been checking blood glucoses 3 times daily for the past 90 days. His insurance will not cover 4 checks per day he reports. Patient needs to continue checking blood glucoses 4 times daily. Blood glucose readings are used to adjust insulin doses for meals, monitor dietary compliance, and adjust for high or low blood glucoses by patient on a daily basis. Blood glucose readings are reviewed at office visits for adjustment in medication regimen and assistance with dietary management, and other self-management issues including exercise, etc. Prognosis: Good. Duration of need for diabetes testing equipment: Permanent #150 strips/month prescribed. Will apply for prior authorization. 6. Bring blood sugar meter to follow up appointment. Orders Placed This Encounter Procedures Comprehensive Metabolic Panel Hemoglobin A1c Electronically signed by Mary Yan MD 10/10/23 8:04 PM documented in this encounter [facility] 08-25-2023 Evaluation + Plan note Associated Problem(s): CKD (chronic kidney disease) Doing well with DM HTN well controlled Sees Endocrinology. Has Type 1 DM On Statin Not on nephrotoxins T [facility] Work Phone: 08-25-2023 Miscellaneous Notes Associated Problem(s): CKD (chronic kidney disease) Doing well with DM HTN well controlled Sees Endocrinology. Has Type 1 DM On Statin Not on nephrotoxins documented in this encounter [facility] Work Phone: 08-25-2023 History of Present illness Narrative Subjective States he is feeling well No new issues No complaitns Patient ID: Serena Fernandes is a 77 y.o. male who presents for Follow-up (1 MO FUV. Labs completed.). HPI Here for follow-up secondary to chronic kidney disease with a baseline creatinine of 1.5-1.8 with hypertension and type 1 diabetes with microalbuminuria Labs were just recently done on August 09 Metabolic panel shows a BUN of 32 a creatinine of 1.69 this is improved from 1.852 months ago GFR is 41 other electrolytes actually look quite good Magnesium is 2.3 PTH 69.5 phosphorus 3.2 vitamin D is low at 22 uric acid 5.3 urinalysis shows positive protein and glucose small amount of leukocyte esterase the albumin is 243 there is 21-50 white cells per high-powered field. Medications are reviewed she is on amlodipine Lantus lisinopril/hydrochlorothiazide hydrochlorothiazide Flomax Blood pressure here in the office today is 144/62 Review of Systems All other systems reviewed and are negative. Objective Physical Exam Constitutional: Appearance: Normal appearance. HENT: Head: Normocephalic and atraumatic. Right Ear: External ear normal. Left Ear: External ear normal. Nose: Nose normal. Mouth/Throat: Mouth: Mucous membranes are moist. Pharynx: Oropharynx is clear. Eyes: Extraocular Movements: Extraocular movements intact. Conjunctiva/sclera: Conjunctivae normal. Pupils: Pupils are equal, round, and reactive to light. Cardiovascular: Rate and Rhythm: Normal rate and regular rhythm. Pulmonary: Effort: Pulmonary effort is normal. Breath sounds: Normal breath sounds. Abdominal: General: Abdomen is flat. Palpations: Abdomen is soft. Skin: General: Skin is warm and dry. Neurological: General: No focal deficit present. Mental Status: He is alert and oriented to person, place, and time. Psychiatric: Mood and Affect: Mood normal. Behavior: Behavior normal. Assessment/Plan Problem List Items Addressed This Visit ICD-10-CM Essential hypertension I10 Pure hypercholesterolemia E78.00 Type 1 diabetes mellitus with diabetic neuropathy (CMS/HCC) E10.40 CKD (chronic kidney disease) - Primary N18.9 Doing well with DM HTN well controlled Sees Endocrinology. Has Type 1 DM On Statin Not on nephrotoxins Relevant Orders Follow Up In Nephrology Basic metabolic panel Albumin, urine, random CKD with baseline creatinine 1.5-1.8 it appears Hypertension Type 1 diabetes Microalbuminuria Dyslipidemia Nicotine Abuse documented in this encounter [facility] Work Phone: 02-19-2023 History of Present illness Narrative Images from the original note were not included. Patient ID: Serena Fernandes is a 77 y.o. male Subjective: HPI: Serena Fernandes presents for follow-up of Type 1 diabetes The initial diagnosis of diabetes was made 27 years ago in 1994. Disease course has been stable. Mr. Fernandes is a 76-year-old male patient who presents the office for a follow-up of his type 1 diabetes. Patient's most recent hemoglobin A1c is 7.8%. Patient reports that he does follow a diabetic diet. His weight stable from his last visit with us. Complications from his diabetes includes neuropathy. He denies nephropathy or retinopathy. Pertinent negatives for diabetes include: no chest pain no shortness of breath no polyuria, polydipsia, polyphagia no nausea or vomiting no blurred vision no weight loss no recent hypoglycemia Pertinent positives for diabetes include: none Hypoglycemia symptoms include vision changes. Patient does not have hypoglycemic unawareness. He does not usually feel symptoms until about 65. Diabetic complications include diabetic neuropathy Pertinent negatives for diabetic complications include no: diabetic nephropathy and diabetic retinopathy Current diabetic treatment includes insulin injections Self Monitored blood glucose levels Patient has been checking BG TID. Breakfast: 59-289 Lunch: 59-62 Supper: 58-300 Bedtime: 79-243 *Blood sugar records were brought with the patient to his appointment today and reviewed. Patient's weight is stable Patient is following a diabetic diet. Meal planning includes avoidance of concentrated sweets. An PASCALE inhibitor/angiotensin II receptor deepali is being taken. Patient does not see a director of gift planning. Eye exam is current. Currently taking: No oral hypoglycemic medications Humalog insulin: 7-9 units at breakfast; 9 units at lunch; 12 units at supper Lantus insulin: 18 units at bedtime Outpatient Medications Marked as Taking for the 02/19/23 encounter (Office Visit) with Paty Ortega CNP: amLODIPine (NORVASC) 10 MG tablet, Take 1 (one) tablet (10 mg total) by mouth daily . blood sugar diagnostic (Contour Next Test Strips) strips, Use as directed 4 times per day. Dx E10.9 Patient with type 1 DM on insulin with hypoglycemia. Needs to check BG QID; takes insulin QID . insulin lispro (HumaLOG KwikPen Insulin) 100 unit/mL InPn, Uses approx. 35 units daily. DX code E 10.65 . Lantus Solostar U-100 Insulin 100 unit/mL (3 mL) InPn, Inject 18 (eighteen) Units under the skin nightly . lisinopriL-hydrochlorothiazide (PRINZIDE,ZESTORETIC) 20-12.5 mg per tablet, Take 1 (one) tablet by mouth daily . pen needle, diabetic (BD Ultra-Fine Jolynn Pen Needle) 32 gauge x 5/32 Ndle, Use as directed 4x daily DX code E10.65 . tamsulosin (FLOMAX) 0.4 mg capsule, Review of Systems: Review of Systems Constitutional: Negative for appetite change, fatigue and unexpected weight change. Eyes: Negative for visual disturbance. Respiratory: Negative for cough and shortness of breath. Cardiovascular: Negative for chest pain and leg swelling. Gastrointestinal: Negative for abdominal pain, constipation, diarrhea, nausea and vomiting. Endocrine: Negative for polydipsia, polyphagia and polyuria. Genitourinary: Negative for frequency and urgency. Musculoskeletal: Positive for back pain. Skin: Negative for wound. Neurological: Positive for numbness. Negative for headaches. Psychiatric/Behavioral: Negative for sleep disturbance. The patient is not nervous/anxious. The following portions of the patient's history were reviewed and updated as appropriate: allergies, current medications, past family history, past medical history, past social history, past surgical history and problem list. Objective: BP 116/83 Pulse 73 Wt 72.6 kg (160 lb) BMI 24.33 kg/m Wt Readings from Last 3 Encounters: 02/19/23 72.6 kg (160 lb) 10/19/22 71.7 kg (158 lb 1.6 oz) 06/19/22 73 kg (161 lb) Physical Exam: General: alert, appears stated age and cooperative Eyes: conjunctivae/corneas clear. PERRL, EOM's intact. Neck: no adenopathy, supple, symmetrical, trachea midline. Thyroid: No thyromegaly appreciated Lung: clear to auscultation bilaterally Heart: regular rate and rhythm, S1, S2 normal, no murmur, click, rub or gallop Extremities: extremities normal, atraumatic, no cyanosis. No edema Feet: Dry skin, Bilateral Feet: normal DP. Monofilament exam Normal , bilateral lower extremities. Neuro: normal without focal findings, mental status, speech normal, alert and oriented x3 and [facility]OL[facility] Lab Review 02/12/23 *labs reviewed 02/19/23 Hgb A1c: 7.7% Creat: 1.69; eGFR: 41 AST: 13; ALT: 12 K: 4.8 CBC: WBC:7.7; Hgb: 12.6; Hct: 39.5; Plt: 229 Tchol: 154; Tri ; HDL: 43 ; LDL: 96 TSH: 0.73 ; FreeT4: 1.16 Microalbumin/creatinine Ratio: 195.3 PSA: 3.14 10/12/22 Hgb A1c: 7.8% Creat: 1.53; eGFR: 46 AST: 15; ALT: 12 K: 4.2 06/08/22 Hgb A1c: 8.1% Creat: 1.29; eGFR: 57 AST: 16; ALT: 12 K: 4.3 CBC: WBC:8.5; Hgb: 14.2; Hct: 41.9; Plt: 221 PSA: 15.89 02/04/22 HgbA1c 7.6% Creat 1.09, Na 140, K 3.8, eGFR 69 AST 14, ALT 11 TChol 161, TG 52, HDL 51, LDL 100 10/13/21 Hgb A1c: 7.4% Creat: 1.05; eGFR: >60 AST: 15; ALT: 9 K: 3.6 TSH: 1.04 ; FreeT4: 0.98 06/11/21 Hgb A1c: 7.5% Creat: 1.16; eGFR: >60 AST: 13; ALT: 10 K: 3.8 CBC: WBC:8.40; Hgb: 13.0; Hct: 39.8; Plt: 228 Tchol: 150; Tri ; HDL: 42 ; LDL: 92 02/11/21 HgbA1c 7.4% Creat 1.08, Na 138, K 4.2 AST 15, ALT 11 TSH 0.85, FT4--0.93 10/03/20 Hgb A1c: 8.3% Creat: 1.04; eGFR: >60 AST: 14; ALT: 10 K: 3.8 Tchol: 160; Tri ; HDL: 44 ; LDL: 91 06/10/20 Hgb A1c: 8.1% Creat: 1.01; eGFR: >60 AST: 16; ALT: 12 K: 4.0 CBC: WBC:8.20; Hgb: 14.1; Hct: 42.3; Plt: 216 TSH: 0.68 ; FreeT4: 0.97 03/11/2020 Hgb A1c: 7.5% Creat: 1.07; eGFR: >60 AST: 16; ALT: 13 K: 3.9 11/03/19 Hgb A1c: 8.4% Creat: 1.08; eGFR: >60 AST: 14; ALT: 10 K: 3.9 Tchol: 163; Tri ; HDL: 42 ; LDL: 103 07/04/2019 Hemoglobin A1c 8.3% Creatinine 1.00 GFR greater than 60 AST 18 ALT 15 PSA 6.1 WBC 8 hemoglobin 13 hematocrit 40 platelets 218 03/03/19 Hemoglobin A1c 8.4% Creatinine 1.0, sodium 138, potassium 4.2, estimated GFR greater than 60 AST 16, ALT 13 Total cholesterol 164, triglycerides 66, HDL 53, LDL 98 WBC 7.5, hemoglobin 14.1, hematocrit 41.7, platelet count 218,000 TSH 0.52, FT4--0.98 Micro 11/creatinine ratio 95 11/02/2018: Hemoglobin A1c 8.4% Creatinine 1.2, BUN 23, GFR greater than 60 AST 17 ALT 18 06/27/18 Hgb A1c: 8.2% Creat: 1.0; eGFR: >60 AST: 19; ALT: 17 K: 4.2 CBC: WBC:7.9; Hgb: 14.0; Hct: 42.0; Plt: 213 Tchol: 162; Tri ; HDL: 50 ; LDL: 98 TSH: 0.88; FreeT4: 0.95 Microalbumin/creatinine Ratio: 93 02/18/18 ([facility]) Hgb A1C 7.6% Cr 1.0, EGFR >60, K 4.0 AST 21, ALT 16 PSA 4.58 (nml range 0-6.5) 10/18/17 HgbA1C 8.3% Creat 1.1 K 4.1, eGFR >60 Assessment: Dx: No diagnosis found. Type 1 diabetes, under good control Serena Fernandes presents for follow-up of Type 1 diabetes Patient is currently managed with: Humalog insulin: 10 units at breakfast; 10 units at lunch; 15 units at supper and Lantus 18 units at bedtime . Most recent Hgb A1c is 7.7%. Reports occasional lows in the early AM and during the day. States if he is low in early AM, he often has visual blurring and his assists him with juice or other carb source. Typically eats a snack if BG <150 at HS. PLAN: See below. 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 Had bilat cataract extraction Dr. Lopez. Sees Dr. Browne in [place] every year routinely. Nephropathy: Positive Creat: 1.09; eGFR: 69 02/04/22 ; Mialb/creat ratio:95 on 03/03/19, patient takes quinapril. Peripheral Neuropathy: Positive Reports bilateral numbness and tingling in feet intermittently Autonomic Neuropathy: Negative Patient aware of lows. He develops symptoms at 65-70. However, has had some low BG in 40-50 range; may be developing some hypoglycemia unawareness. Discussed importance of carrying treatment for hypoglycemia at all times.. Patient is not interested in the sensor at this time. Hyperlipidemia: Positive Currently taking: No lipid lowering agents. LFT's WNL. Unable to tolerate statins. 02/04/22 TChol 161, TG 52, HDL 51, LDL 100 Hypertension: Positive. Currently taking: amlodipine, hydrochlorothiazide (HCTZ) and quinapril . Goal <130/80. BP: 116/83 Cardiac: Negative Denies Chest pain or SOB at this time. Vascular: Negative ; has some mild edema. Positive carotid stenosis.+ carotid bruits bilaterally. US repeated 02/04/23: Right. * Less than 50% stenosis in the right internal carotid artery. * Right vertebral artery is patent with antegrade flow. * No evidence of hemodynamically significant stenosis in the right common carotid, external carotid and subclavian arteries. * Left. * 50-69% stenosis in the left internal carotid artery. * Left vertebral artery is patent with antegrade flow. * Elevated velocity suggestive of stenosis in the left subclavian and external carotid arteries. * No evidence of hemodynamically significant stenosis in the left common carotid artery. * Due to diffuse calcific plaque formation is noted of the left proximal internal and external carotid arteries velocities may be underestimated. Recommendations * Based upon this study, Advanced Carotid Imaging does not appear to be warranted. Clinical correlation advised. Feet: Negative sores or lesions at this time. Last foot exam: 02/19/23 Thyroid: Negative TSH: 0.85; Free T4: 0.93 02/11/21 Other: PSA: PSA: 3.14 02/21 15.89 06/08/22 (ref range 0-4.0) 6.16 07/04/19 (<6.60 is WNL) 4.58 on 02/18/18 4.66 02/05/17; (2.82 12/27/15; 04/01/15: 3.18; 04/03/14: 2.78; 03/11: 1.59) He reports he has been started on Flomax; PSA elevated on labs 8.06.22. He was referred to Dr. Melendez in June 2022. He reports their office called, but he decided not to mess with that right now . 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 Sciatica/leg pain: He states he has spinal stenosis, and legs are getting weaker. He sometimes feels off balance, unsteady. He also reports tremor of hands when writing. Discussed etiologies including possible early Parkinsons disease. However, he does not feel that he needs further neurologic evaluation at this time. Plan: No primary diagnosis found. 1. Rx changes: See insulin dose adjustments below Humalog insulin: 10 units at breakfast; 10 units at lunch; 15 units at supper Lantus insulin: 16-18 units at bedtime 2. Education: Reviewed ABCs of diabetes management (respective goals in parentheses): A1C (7.0-8.0), blood pressure (<130/80), and cholesterol (LDL <100). 3. Compliance at present is estimated to be good. Efforts to improve compliance (if necessary) will be directed at dietary modifications: Limit portion sizes, increased exercise and regular blood sugar monitorin times daily. 4. Follow up: 4 months 5. Record blood sugar readings as instructed. Call if BG consistently <70 or >250. [phone] Continue to check blood sugar 4 times daily. Patient has been checking blood glucoses 3 times daily for the past 90 days. His insurance will not cover 4 checks per day he reports. Patient needs to continue checking blood glucoses 4 times daily. Blood glucose readings are used to adjust insulin doses for meals, monitor dietary compliance, and adjust for high or low blood glucoses by patient on a daily basis. Blood glucose readings are reviewed at office visits for adjustment in medication regimen and assistance with dietary management, and other self-management issues including exercise, etc. Prognosis: Good. Duration of need for diabetes testing equipment: Permanent #150 strips/month prescribed. Will apply for prior authorization. 6. Bring blood sugar meter to follow up appointment. Orders Placed This Encounter Procedures Comprehensive Metabolic Panel Hemoglobin A1c Electronically Signed by: Paty Ortega CNP 02/19/23 10:25 AM documented in this encounter [facility] 10-19-2022 History of Present illness Narrative Images from the original note were not included. Patient ID: Serena Fernandes is a 76 y.o. male Subjective: HPI: Serena Fernandes presents for follow-up of Type 1 diabetes The initial diagnosis of diabetes was made 27 years ago in 1994. Disease course has been stable. Mr. Fernandes is a 76-year-old male patient who presents the office for a follow-up of his type 1 diabetes. Patient's most recent hemoglobin A1c is 7.8%. Patient reports that he does follow a diabetic diet. His weight stable from his last visit with us. Complications from his diabetes includes neuropathy. He denies nephropathy or retinopathy. Pertinent negatives for diabetes include: no chest pain no shortness of breath no polyuria, polydipsia, polyphagia no nausea or vomiting no blurred vision no weight loss no recent hypoglycemia Pertinent positives for diabetes include: none Hypoglycemia symptoms include vision changes. Patient does not have hypoglycemic unawareness. He does not usually feel symptoms until about 65. Diabetic complications include diabetic neuropathy Pertinent negatives for diabetic complications include no: diabetic nephropathy and diabetic retinopathy Current diabetic treatment includes insulin injections Self Monitored blood glucose levels Patient has been checking BG TID. Breakfast: 59-289 Lunch: 59-62 Supper: 58-300 Bedtime: 79-243 *Blood sugar records were brought with the patient to his appointment today and reviewed. Patient's weight is stable Patient is following a diabetic diet. Meal planning includes avoidance of concentrated sweets. An PASCALE inhibitor/angiotensin II receptor deepali is being taken. Patient does not see a director of gift planning. Eye exam is current. Currently taking: No oral hypoglycemic medications Humalog insulin: 7-9 units at breakfast; 9 units at lunch; 12 units at supper Lantus insulin: 18 units at bedtime Outpatient Medications Marked as Taking for the 10/19/22 encounter (Office Visit) with Paty Ortega CNP: amLODIPine (NORVASC) 10 MG tablet, Take 1 (one) tablet (10 mg total) by mouth daily . blood sugar diagnostic (Contour Next Test Strips) strips, Use as directed 4 times per day. Dx E10.9 Patient with type 1 DM on insulin with hypoglycemia. Needs to check BG QID; takes insulin QID . insulin lispro (HumaLOG KwikPen Insulin) 100 unit/mL InPn, Uses approx. 35 units daily. DX code E 10.65 . Lantus Solostar U-100 Insulin 100 unit/mL (3 mL) InPn, Inject 18 (eighteen) Units under the skin nightly . pen needle, diabetic (BD Ultra-Fine Jolynn Pen Needle) 32 gauge x 5/32 Ndle, Use as directed 4x daily DX code E10.65 . quinapril-hydrochlorothiazide (ACCURETIC) 20-12.5 mg per tablet, take 1 tablet by ORAL route every day. tamsulosin (FLOMAX) 0.4 mg capsule, Review of Systems: Review of Systems Constitutional: Negative for appetite change, fatigue and unexpected weight change. Eyes: Negative for visual disturbance. Respiratory: Negative for cough and shortness of breath. Cardiovascular: Negative for chest pain and leg swelling. Gastrointestinal: Negative for abdominal pain, constipation, diarrhea, nausea and vomiting. Endocrine: Negative for polydipsia, polyphagia and polyuria. Genitourinary: Negative for frequency and urgency. Musculoskeletal: Positive for back pain. Skin: Negative for wound. Neurological: Positive for numbness. Negative for headaches. Psychiatric/Behavioral: Negative for sleep disturbance. The patient is not nervous/anxious. The following portions of the patient's history were reviewed and updated as appropriate: allergies, current medications, past family history, past medical history, past social history, past surgical history and problem list. Objective: BP (!) 149/69 Pulse 89 Wt 71.7 kg (158 lb 1.6 oz) BMI 24.04 kg/m Wt Readings from Last 3 Encounters: 10/19/22 71.7 kg (158 lb 1.6 oz) 06/19/22 73 kg (161 lb) 02/13/22 74.8 kg (165 lb) Physical Exam: General: alert, appears stated age and cooperative Eyes: conjunctivae/corneas clear. PERRL, EOM's intact. Neck: no adenopathy, supple, symmetrical, trachea midline. Thyroid: No thyromegaly appreciated Lung: clear to auscultation bilaterally Heart: regular rate and rhythm, S1, S2 normal, no murmur, click, rub or gallop Extremities: extremities normal, atraumatic, no cyanosis. No edema Feet: Dry skin, Bilateral Feet: normal DP. Monofilament exam Normal , bilateral lower extremities. Neuro: normal without focal findings, mental status, speech normal, alert and oriented x3 and [facility] Lab Review 10/12/22 *labs reviewed 10/19/22 Hgb A1c: 7.8% Creat: 1.53; eGFR: 46 AST: 15; ALT: 12 K: 4.2 06/08/22 Hgb A1c: 8.1% Creat: 1.29; eGFR: 57 AST: 16; ALT: 12 K: 4.3 CBC: WBC:8.5; Hgb: 14.2; Hct: 41.9; Plt: 221 PSA: 15.89 02/04/22 HgbA1c 7.6% Creat 1.09, Na 140, K 3.8, eGFR 69 AST 14, ALT 11 TChol 161, TG 52, HDL 51, LDL 100 10/13/21 Hgb A1c: 7.4% Creat: 1.05; eGFR: >60 AST: 15; ALT: 9 K: 3.6 TSH: 1.04 ; FreeT4: 0.98 06/11/21 Hgb A1c: 7.5% Creat: 1.16; eGFR: >60 AST: 13; ALT: 10 K: 3.8 CBC: WBC:8.40; Hgb: 13.0; Hct: 39.8; Plt: 228 Tchol: 150; Tri ; HDL: 42 ; LDL: 92 02/11/21 HgbA1c 7.4% Creat 1.08, Na 138, K 4.2 AST 15, ALT 11 TSH 0.85, FT4--0.93 10/03/20 Hgb A1c: 8.3% Creat: 1.04; eGFR: >60 AST: 14; ALT: 10 K: 3.8 Tchol: 160; Tri ; HDL: 44 ; LDL: 91 06/10/20 Hgb A1c: 8.1% Creat: 1.01; eGFR: >60 AST: 16; ALT: 12 K: 4.0 CBC: WBC:8.20; Hgb: 14.1; Hct: 42.3; Plt: 216 TSH: 0.68 ; FreeT4: 0.97 03/11/2020 Hgb A1c: 7.5% Creat: 1.07; eGFR: >60 AST: 16; ALT: 13 K: 3.9 11/03/19 Hgb A1c: 8.4% Creat: 1.08; eGFR: >60 AST: 14; ALT: 10 K: 3.9 Tchol: 163; Tri ; HDL: 42 ; LDL: 103 07/04/2019 Hemoglobin A1c 8.3% Creatinine 1.00 GFR greater than 60 AST 18 ALT 15 PSA 6.1 WBC 8 hemoglobin 13 hematocrit 40 platelets 218 03/03/19 Hemoglobin A1c 8.4% Creatinine 1.0, sodium 138, potassium 4.2, estimated GFR greater than 60 AST 16, ALT 13 Total cholesterol 164, triglycerides 66, HDL 53, LDL 98 WBC 7.5, hemoglobin 14.1, hematocrit 41.7, platelet count 218,000 TSH 0.52, FT4--0.98 Micro 11/creatinine ratio 95 11/02/2018: Hemoglobin A1c 8.4% Creatinine 1.2, BUN 23, GFR greater than 60 AST 17 ALT 18 06/27/18 Hgb A1c: 8.2% Creat: 1.0; eGFR: >60 AST: 19; ALT: 17 K: 4.2 CBC: WBC:7.9; Hgb: 14.0; Hct: 42.0; Plt: 213 Tchol: 162; Tri ; HDL: 50 ; LDL: 98 TSH: 0.88; FreeT4: 0.95 Microalbumin/creatinine Ratio: 93 02/18/18 ([facility]) Hgb A1C 7.6% Cr 1.0, EGFR >60, K 4.0 AST 21, ALT 16 PSA 4.58 (nml range 0-6.5) 10/18/17 HgbA1C 8.3% Creat 1.1 K 4.1, eGFR >60 Assessment: Dx: 1. 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) 2. Essential hypertension 3. Pure hypercholesterolemia Type 1 diabetes, under good control Serena Fernandes presents for follow-up of Type 1 diabetes Patient is currently managed with: Humalog insulin: 7-9 units at breakfast; 9 units at lunch; 12 units at supper and Lantus 18 units at bedtime . Most recent Hgb A1c is 8.1%. Reports occasional lows in the early AM and during the day. States if he is low in early AM, he often has visual blurring and his assists him with juice or other carb source. Typically eats a snack if BG <150 at HS. PLAN: See below. Reduce lunch and HS insulin. 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 Had bilat cataract extraction Dr. Lopez. Sees Dr. Browne in [place] every year routinely. Nephropathy: Positive Creat: 1.09; eGFR: 69 02/04/22 ; Mialb/creat ratio:95 on 03/03/19, patient takes quinapril. Peripheral Neuropathy: Positive Reports bilateral numbness and tingling in feet intermittently Autonomic Neuropathy: Negative Patient aware of lows. He develops symptoms at 65-70. However, has had some low BG in 40-50 range; may be developing some hypoglycemia unawareness. Discussed importance of carrying treatment for hypoglycemia at all times.. Patient is not interested in the sensor at this time. Hyperlipidemia: Positive Currently taking: No lipid lowering agents. LFT's WNL. Unable to tolerate statins. 02/04/22 TChol 161, TG 52, HDL 51, LDL 100 Hypertension: Positive. Currently taking: amlodipine, hydrochlorothiazide (HCTZ) and quinapril . Goal <130/80. BP: (!) 149/69 Cardiac: Negative Denies Chest pain or SOB at this time. Vascular: Negative ; has some mild edema. Positive carotid stenosis.+ carotid bruits bilaterally. PLAN: Recheck carotid ultrasound this year; he would like to postpone until later this year 2021/early 2022 Feet: Negative sores or lesions at this time. Last foot exam: 10/19/22 Thyroid: Negative TSH: 0.85; Free T4: 0.93 02/11/21 Other: PSA: 15.89 06/08/22 (ref range 0-4.0) 6.16 07/04/19 (<6.60 is WNL) 4.58 on 02/18/18 4.66 02/05/17; (2.82 12/27/15; 04/01/15: 3.18; 04/03/14: 2.78; 03/11: 1.59) He reports he has been started on Flomax; PSA elevated on labs 8... He was referred to Dr. Melendez in June 2022. He reports their office called, but he decided not to mess with that right now . 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 Sciatica/leg pain: He states he has spinal stenosis, and legs are getting weaker. He sometimes feels off balance, unsteady. He also reports tremor of hands when writing. Discussed etiologies including possible early Parkinsons disease. However, he does not feel that he needs further neurologic evaluation at this time. Plan: 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) [E10.40] 1. Rx changes: See insulin dose adjustments below Humalog insulin: 7-9 units at breakfast; 9 units at lunch; 12 units at supper Lantus insulin: 16-18 units at bedtime Previously referral to Dr. Melendez for elevated PSA, patient wishes to hold at this time. 2. Education: Reviewed ABCs of diabetes management (respective goals in parentheses): A1C (7.0-8.0), blood pressure (<130/80), and cholesterol (LDL <100). 3. Compliance at present is estimated to be good. Efforts to improve compliance (if necessary) will be directed at dietary modifications: Limit portion sizes, increased exercise and regular blood sugar monitorin times daily. 4. Follow up: 4 months 5. Record blood sugar readings as instructed. Call if BG consistently <70 or >250. [phone] Continue to check blood sugar 4 times daily. Patient has been checking blood glucoses 3 times daily for the past 90 days. His insurance will not cover 4 checks per day he reports. Patient needs to continue checking blood glucoses 4 times daily. Blood glucose readings are used to adjust insulin doses for meals, monitor dietary compliance, and adjust for high or low blood glucoses by patient on a daily basis. Blood glucose readings are reviewed at office visits for adjustment in medication regimen and assistance with dietary management, and other self-management issues including exercise, etc. Prognosis: Good. Duration of need for diabetes testing equipment: Permanent #150 strips/month prescribed. Will apply for prior authorization. 6. Bring blood sugar meter to follow up appointment. Orders Placed This Encounter Procedures Comprehensive Metabolic Panel Hemoglobin A1c T4, Free TSH Lipid Panel Microalbumin/Creatinine Ratio, UR Random CBC and Differential PSA, Screen Ultrasound doppler carotid Electronically Signed by: Paty Ortega CNP 10/19/22 10:25 AM documented in this encounter [facility] 06-19-2022 History of Present illness Narrative Images from the original note were not included. Patient ID: Serena Fernandes is a 76 y.o. male Subjective: HPI: Serena Fernandes presents for follow-up of Type 1 diabetes The initial diagnosis of diabetes was made 27 years ago in 1994. Disease course has been stable. Mr. Fernandes is a 76-year-old male patient who presents the office for a follow-up of his type 1 diabetes. Patient's most recent hemoglobin A1c is 8.1%. Patient reports that he does follow a diabetic diet. His weight stable from his last visit with us. Complications from his diabetes includes neuropathy. He denies nephropathy or retinopathy. Pertinent negatives for diabetes include: no chest pain no shortness of breath no polyuria, polydipsia, polyphagia no nausea or vomiting no blurred vision no weight loss no recent hypoglycemia Pertinent positives for diabetes include: none Hypoglycemia symptoms include vision changes. Patient does not have hypoglycemic unawareness. He does not usually feel symptoms until about 65. Diabetic complications include diabetic neuropathy Pertinent negatives for diabetic complications include no: diabetic nephropathy and diabetic retinopathy Current diabetic treatment includes insulin injections Self Monitored blood glucose levels Patient has been checking BG TID. Breakfast: 59-289 Lunch: 59-62 Supper: 58-300 Bedtime: 79-243 *Blood sugar records were brought with the patient to his appointment today and reviewed. Patient's weight is stable Patient is following a diabetic diet. Meal planning includes avoidance of concentrated sweets. An PASCALE inhibitor/angiotensin II receptor deepali is being taken. Patient does not see a director of gift planning. Eye exam is current. Currently taking: No oral hypoglycemic medications Humalog insulin: 7-9 units at breakfast; 9 units at lunch; 12 units at supper Lantus insulin: 18 units at bedtime Outpatient Medications Marked as Taking for the 06/19/22 encounter (Office Visit) with Paty Ortega CNP: amLODIPine (NORVASC) 10 MG tablet, Take 10 mg by mouth daily. blood sugar diagnostic (Contour Next Test Strips) strips, Use as directed 4 times per day. Dx E10.9 Patient with type 1 DM on insulin with hypoglycemia. Needs to check BG QID; takes insulin QID . insulin lispro (HumaLOG KwikPen Insulin) 100 unit/mL InPn, Uses approx. 35 units daily. DX code E 10.65 . Lantus Solostar U-100 Insulin 100 unit/mL (3 mL) InPn, Inject 18 (eighteen) Units under the skin nightly . pen needle, diabetic (BD Ultra-Fine Jolynn Pen Needle) 32 gauge x 32 Ndle, Use as directed 4x daily DX code E10.65 . quinapril-hydrochlorothiazide (ACCURETIC) 20-12.5 mg per tablet, take 1 tablet by ORAL route every day. tamsulosin (FLOMAX) 0.4 mg capsule, Review of Systems: Review of Systems Constitutional: Negative for appetite change, fatigue and unexpected weight change. Eyes: Negative for visual disturbance. Respiratory: Negative for cough and shortness of breath. Cardiovascular: Negative for chest pain and leg swelling. Gastrointestinal: Negative for abdominal pain, constipation, diarrhea, nausea and vomiting. Endocrine: Negative for polydipsia, polyphagia and polyuria. Genitourinary: Negative for frequency and urgency. Musculoskeletal: Positive for back pain. Skin: Negative for wound. Neurological: Positive for numbness. Negative for headaches. Psychiatric/Behavioral: Negative for sleep disturbance. The patient is not nervous/anxious. The following portions of the patient's history were reviewed and updated as appropriate: allergies, current medications, past family history, past medical history, past social history, past surgical history and problem list. Objective: BP (!) 213/74 Pulse 72 Ht 5' 8 Wt 73 kg (161 lb) BMI 24.48 kg/m Wt Readings from Last 3 Encounters: 06/19/22 73 kg (161 lb) 02/13/22 74.8 kg (165 lb) 10/13/21 74.3 kg (163 lb 11.2 oz) Physical Exam: General: alert, appears stated age and cooperative Eyes: conjunctivae/corneas clear. PERRL, EOM's intact. Neck: no adenopathy, supple, symmetrical, trachea midline. Thyroid: No thyromegaly appreciated Lung: clear to auscultation bilaterally Heart: regular rate and rhythm, S1, S2 normal, no murmur, click, rub or gallop Extremities: extremities normal, atraumatic, no cyanosis. No edema Feet: Dry skin, Bilateral Feet: normal DP. Monofilament exam Normal , bilateral lower extremities. Neuro: normal without focal findings, mental status, speech normal, alert and oriented x3 and [facility] Lab Review 06/08/22 *labs reviewed 06/19/22 Hgb A1c: 8.1% Creat: 1.29; eGFR: 57 AST: 16; ALT: 12 K: 4.3 CBC: WBC:8.5; Hgb: 14.2; Hct: 41.9; Plt: 221 PSA: 15.89 02/04/22 HgbA1c 7.6% Creat 1.09, Na 140, K 3.8, eGFR 69 AST 14, ALT 11 TChol 161, TG 52, HDL 51, LDL 100 10/13/21 Hgb A1c: 7.4% Creat: 1.05; eGFR: >60 AST: 15; ALT: 9 K: 3.6 TSH: 1.04 ; FreeT4: 0.98 06/11/21 Hgb A1c: 7.5% Creat: 1.16; eGFR: >60 AST: 13; ALT: 10 K: 3.8 CBC: WBC:8.40; Hgb: 13.0; Hct: 39.8; Plt: 228 Tchol: 150; Tri ; HDL: 42 ; LDL: 92 02/11/21 HgbA1c 7.4% Creat 1.08, Na 138, K 4.2 AST 15, ALT 11 TSH 0.85, FT4--0.93 10/03/20 Hgb A1c: 8.3% Creat: 1.04; eGFR: >60 AST: 14; ALT: 10 K: 3.8 Tchol: 160; Tri ; HDL: 44 ; LDL: 91 06/10/20 Hgb A1c: 8.1% Creat: 1.01; eGFR: >60 AST: 16; ALT: 12 K: 4.0 CBC: WBC:8.20; Hgb: 14.1; Hct: 42.3; Plt: 216 TSH: 0.68 ; FreeT4: 0.97 03/11/2020 Hgb A1c: 7.5% Creat: 1.07; eGFR: >60 AST: 16; ALT: 13 K: 3.9 11/03/19 Hgb A1c: 8.4% Creat: 1.08; eGFR: >60 AST: 14; ALT: 10 K: 3.9 Tchol: 163; Tri ; HDL: 42 ; LDL: 103 07/04/2019 Hemoglobin A1c 8.3% Creatinine 1.00 GFR greater than 60 AST 18 ALT 15 PSA 6.1 WBC 8 hemoglobin 13 hematocrit 40 platelets 218 03/03/19 Hemoglobin A1c 8.4% Creatinine 1.0, sodium 138, potassium 4.2, estimated GFR greater than 60 AST 16, ALT 13 Total cholesterol 164, triglycerides 66, HDL 53, LDL 98 WBC 7.5, hemoglobin 14.1, hematocrit 41.7, platelet count 218,000 TSH 0.52, FT4--0.98 Micro 11/creatinine ratio 95 11/02/2018: Hemoglobin A1c 8.4% Creatinine 1.2, BUN 23, GFR greater than 60 AST 17 ALT 18 06/27/18 Hgb A1c: 8.2% Creat: 1.0; eGFR: >60 AST: 19; ALT: 17 K: 4.2 CBC: WBC:7.9; Hgb: 14.0; Hct: 42.0; Plt: 213 Tchol: 162; Tri ; HDL: 50 ; LDL: 98 TSH: 0.88; FreeT4: 0.95 Microalbumin/creatinine Ratio: 93 02/18/18 ([facility]) Hgb A1C 7.6% Cr 1.0, EGFR >60, K 4.0 AST 21, ALT 16 PSA 4.58 (nml range 0-6.5) 10/18/17 HgbA1C 8.3% Creat 1.1 K 4.1, eGFR >60 Assessment: Dx: 1. 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) 2. Essential hypertension 3. Elevated PSA Type 1 diabetes, under good control Serena Fernandes presents for follow-up of Type 1 diabetes Patient is currently managed with: Humalog insulin: 7-9 units at breakfast; 9 units at lunch; 12 units at supper and Lantus 18 units at bedtime . Most recent Hgb A1c is 8.1%. Reports occasional lows in the early AM and during the day. States if he is low in early AM, he often has visual blurring and his assists him with juice or other carb source. Typically eats a snack if BG <150 at HS. PLAN: See below. Reduce lunch and HS insulin. 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 Had bilat cataract extraction Dr. Lopez. Sees Dr. Browne in [place] every year routinely. Nephropathy: Positive Creat: 1.09; eGFR: 69 02/04/22 ; Mialb/creat ratio:95 on 03/03/19, patient takes quinapril. Peripheral Neuropathy: Positive Reports bilateral numbness and tingling in feet intermittently Autonomic Neuropathy: Negative Patient aware of lows. He develops symptoms at 65-70. However, has had some low BG in 40-50 range; may be developing some hypoglycemia unawareness. Discussed importance of carrying treatment for hypoglycemia at all times.. Patient is not interested in the sensor at this time. Hyperlipidemia: Positive Currently taking: No lipid lowering agents. LFT's WNL. Unable to tolerate statins. 02/04/22 TChol 161, TG 52, HDL 51, LDL 100 Hypertension: Positive. Currently taking: amlodipine, hydrochlorothiazide (HCTZ) and quinapril . Goal <130/80. BP: (!) 213/74 Cardiac: Negative Denies Chest pain or SOB at this time. Vascular: Negative ; has some mild edema. Positive carotid stenosis.+ carotid bruits bilaterally. PLAN: Recheck carotid ultrasound this year; he would like to postpone until later this year 2021. Feet: Negative sores or lesions at this time. Last foot exam: 06/19/22 Thyroid: Negative TSH: 0.85; Free T4: 0.93 02/11/21 Other: PSA: 15.89 (ref range 0-4.0) 6.16 07/04/19 (<6.60 is WNL) 4.58 on 02/18/18 4.66 02/05/17; (2.82 12/27/15; 04/01/15: 3.18; 04/03/14: 2.78; 03/11: 1.59) He reports he has been started on Flomax; PSA elevated on labs 8.8.. Will refer to Dr. Melendez, seen previously for kidney stones. 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 Sciatica/leg pain: He states he has spinal stenosis, and legs are getting weaker. He sometimes feels off balance, unsteady. He also reports tremor of hands when writing. Discussed etiologies including possible early Parkinsons disease. However, he does not feel that he needs further neurologic evaluation at this time. Plan: 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) [E10.40] 1. Rx changes: See insulin dose adjustments below Humalog insulin: 7-9 units at breakfast; 9 units at lunch; 12 units at supper Lantus insulin: 16-18 units at bedtime Referral to Dr. Melendez for elevated PSA. Referral sent. 2. Education: Reviewed ABCs of diabetes management (respective goals in parentheses): A1C (7.0-8.0), blood pressure (<130/80), and cholesterol (LDL <100). 3. Compliance at present is estimated to be good. Efforts to improve compliance (if necessary) will be directed at dietary modifications: Limit portion sizes, increased exercise and regular blood sugar monitorin times daily. 4. Follow up: 4 months 5. Record blood sugar readings as instructed. Call if BG consistently <70 or >250. [phone] Continue to check blood sugar 4 times daily. Patient has been checking blood glucoses 3 times daily for the past 90 days. His insurance will not cover 4 checks per day he reports. Patient needs to continue checking blood glucoses 4 times daily. Blood glucose readings are used to adjust insulin doses for meals, monitor dietary compliance, and adjust for high or low blood glucoses by patient on a daily basis. Blood glucose readings are reviewed at office visits for adjustment in medication regimen and assistance with dietary management, and other self-management issues including exercise, etc. Prognosis: Good. Duration of need for diabetes testing equipment: Permanent #150 strips/month prescribed. Will apply for prior authorization. 6. Bring blood sugar meter to follow up appointment. No orders of the defined types were placed in this encounter. Electronically signed by Mary Yan MD 06/19/22 11:20 PM documented in this encounter [facility] 02-13-2022 History of Present illness Narrative Images from the original note were not included. Patient ID: Serena Fernandes is a 76 y.o. male Subjective: HPI: Serena Fernandes presents for follow-up of Type 1 diabetes The initial diagnosis of diabetes was made 27 years ago in 1994. Disease course has been stable. Mr. Fernandes is a 75-year-old male patient who presents the office for a follow-up of his type 1 diabetes. Patient's most recent hemoglobin A1c is 7.6%. Patient reports that he does follow a diabetic diet. His weight stable from his last visit with us. Complications from his diabetes includes neuropathy. He denies nephropathy or retinopathy. Pertinent negatives for diabetes include: no chest pain no shortness of breath no polyuria, polydipsia, polyphagia no nausea or vomiting no blurred vision no weight loss no recent hypoglycemia Pertinent positives for diabetes include: none Hypoglycemia symptoms include vision changes. Patient does not have hypoglycemic unawareness. He does not usually feel symptoms until about 65. Diabetic complications include diabetic neuropathy Pertinent negatives for diabetic complications include no: diabetic nephropathy and diabetic retinopathy Current diabetic treatment includes insulin injections Self Monitored blood glucose levels Patient has been checking BG TID. Breakfast: 59-289 Lunch: 59-62 Supper: 58-300 Bedtime: 79-243 *Blood sugar records were brought with the patient to his appointment today and reviewed. Patient's weight is stable Patient is following a diabetic diet. Meal planning includes avoidance of concentrated sweets. An PASCALE inhibitor/angiotensin II receptor deepali is being taken. Patient does not see a director of gift planning. Eye exam is current. Currently taking: No oral hypoglycemic medications Humalog insulin: 7-9 units at breakfast; 9 units at lunch; 12 units at supper Lantus insulin: 18 units at bedtime Outpatient Medications Marked as Taking for the 02/13/22 encounter (Office Visit) with Mary Yan MD: amLODIPine (NORVASC) 10 MG tablet, Take 10 mg by mouth daily. aspirin 81 MG EC tablet, Take 1 (one) tablet (81 mg total) by mouth daily . Lantus Solostar U-100 Insulin 100 unit/mL (3 mL) InPn, Inject 18 (eighteen) Units under the skin nightly . pen needle, diabetic (BD Ultra-Fine Jolynn Pen Needle) 32 gauge x 5/32 Ndle, Use as directed 4x daily DX code E10.65 . quinapril-hydrochlorothiazide (ACCURETIC) 20-12.5 mg per tablet, take 1 tablet by ORAL route every day. tamsulosin (FLOMAX) 0.4 mg capsule, [DISCONTINUED] blood sugar diagnostic (Contour Next Test Strips) strips, Use as directed 4 times per day. Dx E10.9 Patient with type 1 DM on insulin with hypoglycemia. Needs to check BG QID; takes insulin QID . [DISCONTINUED] insulin lispro (HumaLOG KwikPen Insulin) 100 unit/mL InPn, Uses approx. 35 units daily. DX code E 10.65 . Review of Systems: Review of Systems Constitutional: Negative for appetite change, fatigue and unexpected weight change. Eyes: Negative for visual disturbance. Respiratory: Negative for cough and shortness of breath. Cardiovascular: Negative for chest pain and leg swelling. Gastrointestinal: Negative for abdominal pain, constipation, diarrhea, nausea and vomiting. Endocrine: Negative for polydipsia, polyphagia and polyuria. Genitourinary: Negative for frequency and urgency. Musculoskeletal: Positive for back pain. Skin: Negative for wound. Neurological: Positive for numbness. Negative for headaches. Psychiatric/Behavioral: Negative for sleep disturbance. The patient is not nervous/anxious. The following portions of the patient's history were reviewed and updated as appropriate: allergies, current medications, past family history, past medical history, past social history, past surgical history and problem list. Objective: BP 138/74 Pulse 71 Ht 5' 8 Wt 74.8 kg (165 lb) BMI 25.09 kg/m Wt Readings from Last 3 Encounters: 02/13/22 74.8 kg (165 lb) 10/13/21 74.3 kg (163 lb 11.2 oz) 06/20/21 75.5 kg (166 lb 8 oz) Physical Exam: General: alert, appears stated age and cooperative Eyes: conjunctivae/corneas clear. PERRL, EOM's intact. Neck: no adenopathy, supple, symmetrical, trachea midline. Thyroid: No thyromegaly appreciated Lung: clear to auscultation bilaterally Heart: regular rate and rhythm, S1, S2 normal, no murmur, click, rub or gallop Extremities: extremities normal, atraumatic, no cyanosis. No edema Feet: Dry skin, Bilateral Feet: normal DP. Monofilament exam Normal , bilateral lower extremities. Neuro: normal without focal findings, mental status, speech normal, alert and oriented x3 and [facility] Lab Review 02/04/22 HgbA1c 7.6% Creat 1.09, Na 140, K 3.8, eGFR 69 AST 14, ALT 11 TChol 161, TG 52, HDL 51, LDL 100 10/13/21 Hgb A1c: 7.4% Creat: 1.05; eGFR: >60 AST: 15; ALT: 9 K: 3.6 TSH: 1.04 ; FreeT4: 0.98 06/11/21 Hgb A1c: 7.5% Creat: 1.16; eGFR: >60 AST: 13; ALT: 10 K: 3.8 CBC: WBC:8.40; Hgb: 13.0; Hct: 39.8; Plt: 228 Tchol: 150; Tri ; HDL: 42 ; LDL: 92 02/11/21 HgbA1c 7.4% Creat 1.08, Na 138, K 4.2 AST 15, ALT 11 TSH 0.85, FT4--0.93 10/03/20 Hgb A1c: 8.3% Creat: 1.04; eGFR: >60 AST: 14; ALT: 10 K: 3.8 Tchol: 160; Tri ; HDL: 44 ; LDL: 91 06/10/20 Hgb A1c: 8.1% Creat: 1.01; eGFR: >60 AST: 16; ALT: 12 K: 4.0 CBC: WBC:8.20; Hgb: 14.1; Hct: 42.3; Plt: 216 TSH: 0.68 ; FreeT4: 0.97 03/11/2020 Hgb A1c: 7.5% Creat: 1.07; eGFR: >60 AST: 16; ALT: 13 K: 3.9 11/03/19 Hgb A1c: 8.4% Creat: 1.08; eGFR: >60 AST: 14; ALT: 10 K: 3.9 Tchol: 163; Tri ; HDL: 42 ; LDL: 103 07/04/2019 Hemoglobin A1c 8.3% Creatinine 1.00 GFR greater than 60 AST 18 ALT 15 PSA 6.1 WBC 8 hemoglobin 13 hematocrit 40 platelets 218 03/03/19 Hemoglobin A1c 8.4% Creatinine 1.0, sodium 138, potassium 4.2, estimated GFR greater than 60 AST 16, ALT 13 Total cholesterol 164, triglycerides 66, HDL 53, LDL 98 WBC 7.5, hemoglobin 14.1, hematocrit 41.7, platelet count 218,000 TSH 0.52, FT4--0.98 Micro 11/creatinine ratio 95 11/02/2018: Hemoglobin A1c 8.4% Creatinine 1.2, BUN 23, GFR greater than 60 AST 17 ALT 18 06/27/18 Hgb A1c: 8.2% Creat: 1.0; eGFR: >60 AST: 19; ALT: 17 K: 4.2 CBC: WBC:7.9; Hgb: 14.0; Hct: 42.0; Plt: 213 Tchol: 162; Tri ; HDL: 50 ; LDL: 98 TSH: 0.88; FreeT4: 0.95 Microalbumin/creatinine Ratio: 93 02/18/18 ([facility]) Hgb A1C 7.6% Cr 1.0, EGFR >60, K 4.0 AST 21, ALT 16 PSA 4.58 (nml range 0-6.5) 10/18/17 HgbA1C 8.3% Creat 1.1 K 4.1, eGFR >60 Assessment: Dx: 1. 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) blood sugar diagnostic (Contour Next Test Strips) strips CBC and Differential Comprehensive Metabolic Panel Hemoglobin A1c External Lab Microalbumin/Creatinine 2. 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 Essential hypertension 4. Bilateral carotid artery stenosis 5. Prostate cancer screening PSA, Screen Type 1 diabetes, under good control Serena Fernandes presents for follow-up of Type 1 diabetes Patient is currently managed with: Humalog insulin: 7-9 units at breakfast; 9 units at lunch; 12 units at supper and Lantus 18 units at bedtime . Most recent Hgb A1c is 7.6%. Reports occasional lows in the early AM and during the day. States if he is low in early AM, he often has visual blurring and his assists him with juice or other carb source. Typically eats a snack if BG <150 at HS. PLAN: See below. Reduce lunch and HS insulin. 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 Had bilat cataract extraction Dr. Lopez. Sees Dr. Browne in [place] every year routinely. Nephropathy: Positive Creat: 1.09; eGFR: 69 02/04/22 ; Mialb/creat ratio:95 on 03/03/19, patient takes quinapril. Peripheral Neuropathy: Positive Reports bilateral numbness and tingling in feet intermittently Autonomic Neuropathy: Negative Patient aware of lows. He develops symptoms at 65-70. However, has had some low BG in 40-50 range; may be developing some hypoglycemia unawareness. Discussed importance of carrying treatment for hypoglycemia at all times.. Patient is not interested in the sensor at this time. Hyperlipidemia: Positive Currently taking: No lipid lowering agents. LFT's WNL. Unable to tolerate statins. 02/04/22 TChol 161, TG 52, HDL 51, LDL 100 Hypertension: Positive. Currently taking: amlodipine, hydrochlorothiazide (HCTZ) and quinapril . Goal <130/80. BP: 138/74 Cardiac: Negative Denies Chest pain or SOB at this time. Vascular: Negative ; has some mild edema. Positive carotid stenosis.+ carotid bruits bilaterally. PLAN: Recheck carotid ultrasound this year; he would like to postpone until later this year 2021. Feet: Negative sores or lesions at this time. Last foot exam: 02/13/22 Thyroid: Negative TSH: 0.85; Free T4: 0.93 02/11/21 Other: PSA: 6.16 07/04/19 (<6.60 is WNL) 4.58 on 02/18/18; recheck PSA at follow up. 4.66 02/05/17; (2.82 12/27/15; 04/01/15: 3.18; 04/03/14: 2.78; 03/11: 1.59) He reports he has been started on Flomax; but unclear if PSA has been done. Will add to follow up labs for before next appt. 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 Sciatica/leg pain: He states he has spinal stenosis, and legs are getting weaker. He sometimes feels off balance, unsteady. He also reports tremor of hands when writing. Discussed etiologies including possible early Parkinsons disease. However, he does not feel that he needs further neurologic evaluation at this time. Plan: 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) [E10.40] 1. Rx changes: See insulin dose adjustments below Humalog insulin: 7-9 units at breakfast; 8 units at lunch; 12 units at supper Lantus insulin: 15-16 units at bedtime Order Carotid ultrasound at follow up to check stenosis. To be done in [place] office. 2. Education: Reviewed ABCs of diabetes management (respective goals in parentheses): A1C (7.0-8.0), blood pressure (<130/80), and cholesterol (LDL <100). 3. Compliance at present is estimated to be good. Efforts to improve compliance (if necessary) will be directed at dietary modifications: Limit portion sizes, increased exercise and regular blood sugar monitorin times daily. 4. Follow up: 4 months 5. Record blood sugar readings as instructed. Call if BG consistently <70 or >250. [phone] Continue to check blood sugar 4 times daily. Patient has been checking blood glucoses 3 times daily for the past 90 days. His insurance will not cover 4 checks per day he reports. Patient needs to continue checking blood glucoses 4 times daily. Blood glucose readings are used to adjust insulin doses for meals, monitor dietary compliance, and adjust for high or low blood glucoses by patient on a daily basis. Blood glucose readings are reviewed at office visits for adjustment in medication regimen and assistance with dietary management, and other self-management issues including exercise, etc. Prognosis: Good. Duration of need for diabetes testing equipment: Permanent #150 strips/month prescribed. Will apply for prior authorization. 6. Bring blood sugar meter to follow up appointment. Orders Placed This Encounter Procedures CBC and Differential Comprehensive Metabolic Panel Hemoglobin A1c External Lab Microalbumin/Creatinine PSA, Screen Electronically signed by Mary Yan MD 02/13/22 11:20 PM documented in this encounter [facility] 10-13-2021 History of Present illness Narrative Images from the original note were not included. Patient ID: Serena Fernandes is a 75 y.o. male Subjective: HPI: Serena Fernandes presents for follow-up of Type 1 diabetes The initial diagnosis of diabetes was made 26 years ago in 1994. Disease course has been stable. Mr. Fernandes is a 75-year-old male patient who presents the office for a follow-up of his type 1 diabetes. Patient reports he has been feeling fairly well. He reports continuing to have sciatic nerve pain (reports constant ache/trouble standing for long period of time). He reports may be not being quite as active as he usually is because of his discomfort and leg weakness. Patient's most recent hemoglobin A1c is 7.4%. Patient reports that he does follow a diabetic diet. His weight stable from his last visit with us. Complications from his diabetes includes neuropathy. He denies nephropathy or retinopathy. Pertinent negatives for diabetes include: no chest pain no shortness of breath no polyuria, polydipsia, polyphagia no nausea or vomiting no blurred vision no weight loss no recent hypoglycemia Pertinent positives for diabetes include: none Hypoglycemia symptoms include vision changes. Patient does not have hypoglycemic unawareness. He does not usually feel symptoms until about 65. Diabetic complications include diabetic neuropathy Pertinent negatives for diabetic complications include no: diabetic nephropathy and diabetic retinopathy Current diabetic treatment includes insulin injections Self Monitored blood glucose levels Patient has been checking BG TID. Breakfast: 66-210 Lunch: --- Supper: 62-210 Bedtime: 63-217 *Blood sugar records were brought with the patient to his appointment today and reviewed. Patient's weight is stable Patient is following a diabetic diet. Meal planning includes avoidance of concentrated sweets. An PASCALE inhibitor/angiotensin II receptor deepali is being taken. Patient does not see a director of gift planning. Eye exam is current. Currently taking: No oral hypoglycemic medications Humalog insulin: 9-10 units at breakfast; 9-10 units at lunch; 12-15 units at supper Lantus insulin: 18 units at bedtime Outpatient Medications Marked as Taking for the 10/13/21 encounter (Office Visit) with Paty Ortega CNP: amLODIPine (NORVASC) 10 MG tablet, Take 10 mg by mouth daily. aspirin 81 MG EC tablet, Take 1 (one) tablet (81 mg total) by mouth daily . blood sugar diagnostic (Contour Next Test Strips) strips, Use as directed 4 times per day. Dx E10.9 Patient with type 1 DM on insulin with hypoglycemia. Needs to check BG QID; takes insulin QID . insulin lispro (HumaLOG KwikPen Insulin) 100 unit/mL InPn, Uses approx. 35 units daily. DX code E 10.65 . Lantus Solostar U-100 Insulin 100 unit/mL (3 mL) InPn, Inject 18 (eighteen) Units under the skin nightly . pen needle, diabetic (BD Ultra-Fine Jolynn Pen Needle) 32 gauge x 5/32 Ndle, Use as directed 4x daily DX code E10.65 . quinapril-hydrochlorothiazide (ACCURETIC) 20-12.5 mg per tablet, take 1 tablet by ORAL route every day. tamsulosin (FLOMAX) 0.4 mg capsule, Review of Systems: Review of Systems Constitutional: Negative for appetite change, fatigue and unexpected weight change. Eyes: Negative for visual disturbance. Respiratory: Negative for cough and shortness of breath. Cardiovascular: Negative for chest pain and leg swelling. Gastrointestinal: Negative for abdominal pain, constipation, diarrhea, nausea and vomiting. Endocrine: Negative for polydipsia, polyphagia and polyuria. Genitourinary: Negative for frequency and urgency. Musculoskeletal: Positive for back pain. Skin: Negative for wound. Neurological: Positive for numbness. Negative for headaches. Psychiatric/Behavioral: Negative for sleep disturbance. The patient is not nervous/anxious. The following portions of the patient's history were reviewed and updated as appropriate: allergies, current medications, past family history, past medical history, past social history, past surgical history and problem list. Objective: BP (!) 163/72 Pulse 74 Wt 74.3 kg (163 lb 11.2 oz) BMI 24.89 kg/m Wt Readings from Last 3 Encounters: 10/13/21 74.3 kg (163 lb 11.2 oz) 06/20/21 75.5 kg (166 lb 8 oz) 02/18/21 76.2 kg (168 lb) Physical Exam: General: alert, appears stated age and cooperative Eyes: conjunctivae/corneas clear. PERRL, EOM's intact. Neck: no adenopathy, supple, symmetrical, trachea midline. Thyroid: No thyromegaly appreciated Lung: clear to auscultation bilaterally Heart: regular rate and rhythm, S1, S2 normal, no murmur, click, rub or gallop Extremities: extremities normal, atraumatic, no cyanosis. No edema Feet: Dry skin, Bilateral Feet: normal DP. Monofilament exam Normal , bilateral lower extremities. Neuro: normal without focal findings, mental status, speech normal, alert and oriented x3 and [facility] Lab Review 10/13/21 *labs reviewed 10/13/21 Hgb A1c: 7.4% Creat: 1.05; eGFR: >60 AST: 15; ALT: 9 K: 3.6 TSH: 1.04 ; FreeT4: 0.98 06/11/21 Hgb A1c: 7.5% Creat: 1.16; eGFR: >60 AST: 13; ALT: 10 K: 3.8 CBC: WBC:8.40; Hgb: 13.0; Hct: 39.8; Plt: 228 Tchol: 150; Tri ; HDL: 42 ; LDL: 92 02/11/21 HgbA1c 7.4% Creat 1.08, Na 138, K 4.2 AST 15, ALT 11 TSH 0.85, FT4--0.93 10/03/20 Hgb A1c: 8.3% Creat: 1.04; eGFR: >60 AST: 14; ALT: 10 K: 3.8 Tchol: 160; Tri ; HDL: 44 ; LDL: 91 06/10/20 Hgb A1c: 8.1% Creat: 1.01; eGFR: >60 AST: 16; ALT: 12 K: 4.0 CBC: WBC:8.20; Hgb: 14.1; Hct: 42.3; Plt: 216 TSH: 0.68 ; FreeT4: 0.97 03/11/2020 Hgb A1c: 7.5% Creat: 1.07; eGFR: >60 AST: 16; ALT: 13 K: 3.9 11/03/19 Hgb A1c: 8.4% Creat: 1.08; eGFR: >60 AST: 14; ALT: 10 K: 3.9 Tchol: 163; Tri ; HDL: 42 ; LDL: 103 07/04/2019 Hemoglobin A1c 8.3% Creatinine 1.00 GFR greater than 60 AST 18 ALT 15 PSA 6.1 WBC 8 hemoglobin 13 hematocrit 40 platelets 218 03/03/19 Hemoglobin A1c 8.4% Creatinine 1.0, sodium 138, potassium 4.2, estimated GFR greater than 60 AST 16, ALT 13 Total cholesterol 164, triglycerides 66, HDL 53, LDL 98 WBC 7.5, hemoglobin 14.1, hematocrit 41.7, platelet count 218,000 TSH 0.52, FT4--0.98 Micro 11/creatinine ratio 95 11/02/2018: Hemoglobin A1c 8.4% Creatinine 1.2, BUN 23, GFR greater than 60 AST 17 ALT 18 06/27/18 Hgb A1c: 8.2% Creat: 1.0; eGFR: >60 AST: 19; ALT: 17 K: 4.2 CBC: WBC:7.9; Hgb: 14.0; Hct: 42.0; Plt: 213 Tchol: 162; Tri ; HDL: 50 ; LDL: 98 TSH: 0.88; FreeT4: 0.95 Microalbumin/creatinine Ratio: 93 02/18/18 ([facility]) Hgb A1C 7.6% Cr 1.0, EGFR >60, K 4.0 AST 21, ALT 16 PSA 4.58 (nml range 0-6.5) 10/18/17 HgbA1C 8.3% Creat 1.1 K 4.1, eGFR >60 Assessment: Dx: 1. 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) 2. Essential hypertension 3. Pure hypercholesterolemia Type 1 diabetes, under good control Serena Fernandes presents for follow-up of Type 1 diabetes Patient is currently managed with: Humalog insulin: 9-10 units at breakfast; 9-10 units at lunch; 12-15 units at supper and Lantus 18 units at bedtime . Most recent Hgb A1c is 7.4%. Reports occasional lows during the day. Typically eats a snack if BG <150 at HS. PLAN: See below. 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 Exam within last 12 months: yes Date: 10/16/20. Had bilat cataract extraction Dr. Lopez. Sees Dr. Browne in [place] every year routinely. Nephropathy: Negative Creat: 1.08; eGFR: >60 02/12/20 ; Mialb/creat ratio:95 on 03/03/19, patient takes quinapril Peripheral Neuropathy: Positive Reports bilateral numbness and tingling in feet intermittently Autonomic Neuropathy: Negative Patient aware of lows. He develops symptoms at 65-70. However, has had some low BG in 40-50 range; may be developing some hypoglycemia unawareness. Discussed importance of carrying treatment for hypoglycemia at all times.. Patient is not interested in the sensor at this time. Hyperlipidemia: Positive Currently taking: No lipid lowering agents. LFT's WNL. Unable to tolerate statins. 10/03/20 Tchol: 160; Tri ; HDL: 44 ; LDL: 91 Goal LDL <100, Goal trig <150. Stable. Hypertension: Positive. Currently taking: amlodipine, hydrochlorothiazide (HCTZ) and quinapril . Goal <130/80. BP: (!) 163/72 Reports always high in the doctors office . Cardiac: Negative Denies Chest pain or SOB at this time. Vascular: Negative ; has some mild edema. Positive carotid stenosis.+ carotid bruits bilaterally. PLAN: Recheck carotid ultrasound Feet: Negative sores or lesions at this time. Last foot exam: 10/13/21 Thyroid: Negative TSH: 0.85; Free T4: 0.93 02/11/21 Other: PSA: 6.16 07/04/19 (<6.60 is WNL) 4.58 on 02/18/18; recheck PSA at follow up. 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 Plan: 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) [E10.40] 1. Rx changes: Continue current regimen Humalog insulin: 9 units at breakfast; 9 units at lunch; 12 units at supper Lantus insulin: 17-18 units at bedtime 2. Education: Reviewed ABCs of diabetes management (respective goals in parentheses): A1C (7.0-8.0), blood pressure (<130/80), and cholesterol (LDL <100). 3. Compliance at present is estimated to be excellent. Efforts to improve compliance (if necessary) will be directed at dietary modifications: Limit portion sizes, increased exercise and regular blood sugar monitorin times daily. 4. Follow up: 4 months 5. Record blood sugar readings as instructed. Call if BG consistently <70 or >250. [phone] Continue to check blood sugar 4 times daily. Patient has been checking blood glucoses 3 times daily for the past 90 days. His insurance will not cover 4 checks per day he reports. Patient needs to continue checking blood glucoses 4 times daily. Blood glucose readings are used to adjust insulin doses for meals, monitor dietary compliance, and adjust for high or low blood glucoses by patient on a daily basis. Blood glucose readings are reviewed at office visits for adjustment in medication regimen and assistance with dietary management, and other self-management issues including exercise, etc. Prognosis: Good. Duration of need for diabetes testing equipment: Permanent #150 strips/month prescribed. Will apply for prior authorization. 6. Bring blood sugar meter to follow up appointment. Orders Placed This Encounter Procedures Comprehensive Metabolic Panel Hemoglobin A1c Lipid Panel Electronically Signed by: Paty Ortega CNP 10/13/21 2:55 PM documented in this encounter [facility] 06-20-2021 History of Present illness Narrative Images from the original note were not included. Patient ID: Serena Fernandes is a 75 y.o. male Subjective: HPI: Serena Fernandes presents for follow-up of Type 1 diabetes The initial diagnosis of diabetes was made 26 years ago in 1994. Disease course has been stable. Mr. Fernandes is a 75-year-old male patient who presents the office for a follow-up of his type 1 diabetes. Patient reports he has been feeling fairly well. He reports continuing to have sciatic nerve pain (reports constant ache/trouble standing for long period of time). He reports may be not being quite as active as he usually is because of his discomfort and leg weakness. Patient's most recent hemoglobin A1c is 7.4%. Patient reports that he does follow a diabetic diet. His weight stable from his last visit with us. Complications from his diabetes includes neuropathy. He denies nephropathy or retinopathy. Pertinent negatives for diabetes include: no chest pain no shortness of breath no polyuria, polydipsia, polyphagia no nausea or vomiting no blurred vision no weight loss no recent hypoglycemia Pertinent positives for diabetes include: none Hypoglycemia symptoms include vision changes. Patient does not have hypoglycemic unawareness. He does not usually feel symptoms until about 65. Diabetic complications include diabetic neuropathy Pertinent negatives for diabetic complications include no: diabetic nephropathy and diabetic retinopathy Current diabetic treatment includes insulin injections Self Monitored blood glucose levels Patient has been checking BG TID. Breakfast: 66-210 Lunch: --- Supper: 62-210 Bedtime: 63-217 *Blood sugar records were brought with the patient to his appointment today and reviewed. Patient's weight is stable Patient is following a diabetic diet. Meal planning includes avoidance of concentrated sweets. An PASCALE inhibitor/angiotensin II receptor deepali is being taken. Patient does not see a director of gift planning. Eye exam is current. Currently taking: No oral hypoglycemic medications Humalog insulin: 9 units at breakfast; 9 units at lunch; 12 units at supper Lantus insulin: 18 units at bedtime Outpatient Medications Marked as Taking for the 06/20/21 encounter (Office Visit) with Paty Ortega CNP: amLODIPine (NORVASC) 10 MG tablet, Take 10 mg by mouth daily. aspirin 81 MG EC tablet, Take 1 (one) tablet (81 mg total) by mouth daily . blood sugar diagnostic (Contour Next Test Strips) strips, Use as directed 4 times per day. Dx E10.9 Patient with type 1 DM on insulin with hypoglycemia. Needs to check BG QID; takes insulin QID . insulin lispro (HumaLOG KwikPen Insulin) 100 unit/mL InPn, Uses approx. 35 units daily. DX code E 10.65 . Lantus Solostar U-100 Insulin 100 unit/mL (3 mL) InPn, Inject 18 (eighteen) Units under the skin nightly . pen needle, diabetic (BD Ultra-Fine Jolynn Pen Needle) 32 gauge x 5/32 Ndle, Use as directed 4x daily DX code E10.65 . quinapril-hydrochlorothiazide (ACCURETIC) 20-12.5 mg per tablet, take 1 tablet by ORAL route every day. tamsulosin (FLOMAX) 0.4 mg capsule, Review of Systems: Review of Systems Constitutional: Negative for appetite change, fatigue and unexpected weight change. Eyes: Negative for visual disturbance. Respiratory: Negative for cough and shortness of breath. Cardiovascular: Negative for chest pain and leg swelling. Gastrointestinal: Negative for abdominal pain, constipation, diarrhea, nausea and vomiting. Endocrine: Negative for polydipsia, polyphagia and polyuria. Genitourinary: Negative for frequency and urgency. Musculoskeletal: Positive for back pain. Skin: Negative for wound. Neurological: Positive for numbness. Negative for headaches. Psychiatric/Behavioral: Negative for sleep disturbance. The patient is not nervous/anxious. The following portions of the patient's history were reviewed and updated as appropriate: allergies, current medications, past family history, past medical history, past social history, past surgical history and problem list. Objective: BP (!) 163/68 (BP Location: Right arm, Patient Position: Sitting, BP Cuff Size: Adult) Pulse 70 Ht 5' 8 Wt 75.5 kg (166 lb 8 oz) BMI 25.32 kg/m Wt Readings from Last 3 Encounters: 06/20/21 75.5 kg (166 lb 8 oz) 02/18/21 76.2 kg (168 lb) 10/18/20 76.2 kg (168 lb) Physical Exam: General: alert, appears stated age and cooperative Eyes: conjunctivae/corneas clear. PERRL, EOM's intact. Neck: no adenopathy, supple, symmetrical, trachea midline. Thyroid: No thyromegaly appreciated Lung: clear to auscultation bilaterally Heart: regular rate and rhythm, S1, S2 normal, no murmur, click, rub or gallop Extremities: extremities normal, atraumatic, no cyanosis. No edema Feet: Dry skin, Bilateral Feet: normal DP. Monofilament exam Normal , bilateral lower extremities. Neuro: normal without focal findings, mental status, speech normal, alert and oriented x3 and [facility] Lab Review 06/11/21 *labs reviewed 06/20/21 Hgb A1c: 7.5% Creat: 1.16; eGFR: >60 AST: 13; ALT: 10 K: 3.8 CBC: WBC:8.40; Hgb: 13.0; Hct: 39.8; Plt: 228 Tchol: 150; Tri ; HDL: 42 ; LDL: 92 02/11/21 HgbA1c 7.4% Creat 1.08, Na 138, K 4.2 AST 15, ALT 11 TSH 0.85, FT4--0.93 10/03/20 Hgb A1c: 8.3% Creat: 1.04; eGFR: >60 AST: 14; ALT: 10 K: 3.8 Tchol: 160; Tri ; HDL: 44 ; LDL: 91 06/10/20 Hgb A1c: 8.1% Creat: 1.01; eGFR: >60 AST: 16; ALT: 12 K: 4.0 CBC: WBC:8.20; Hgb: 14.1; Hct: 42.3; Plt: 216 TSH: 0.68 ; FreeT4: 0.97 03/11/2020 Hgb A1c: 7.5% Creat: 1.07; eGFR: >60 AST: 16; ALT: 13 K: 3.9 11/03/19 Hgb A1c: 8.4% Creat: 1.08; eGFR: >60 AST: 14; ALT: 10 K: 3.9 Tchol: 163; Tri ; HDL: 42 ; LDL: 103 07/04/2019 Hemoglobin A1c 8.3% Creatinine 1.00 GFR greater than 60 AST 18 ALT 15 PSA 6.1 WBC 8 hemoglobin 13 hematocrit 40 platelets 218 03/03/19 Hemoglobin A1c 8.4% Creatinine 1.0, sodium 138, potassium 4.2, estimated GFR greater than 60 AST 16, ALT 13 Total cholesterol 164, triglycerides 66, HDL 53, LDL 98 WBC 7.5, hemoglobin 14.1, hematocrit 41.7, platelet count 218,000 TSH 0.52, FT4--0.98 Micro 11/creatinine ratio 95 11/02/2018: Hemoglobin A1c 8.4% Creatinine 1.2, BUN 23, GFR greater than 60 AST 17 ALT 18 06/27/18 Hgb A1c: 8.2% Creat: 1.0; eGFR: >60 AST: 19; ALT: 17 K: 4.2 CBC: WBC:7.9; Hgb: 14.0; Hct: 42.0; Plt: 213 Tchol: 162; Tri ; HDL: 50 ; LDL: 98 TSH: 0.88; FreeT4: 0.95 Microalbumin/creatinine Ratio: 93 02/18/18 ([facility]) Hgb A1C 7.6% Cr 1.0, EGFR >60, K 4.0 AST 21, ALT 16 PSA 4.58 (nml range 0-6.5) 10/18/17 HgbA1C 8.3% Creat 1.1 K 4.1, eGFR >60 Assessment: Dx: 1. Type 1 diabetes mellitus with diabetic polyneuropathy (HCC) 2. Essential hypertension 3. Pure hypercholesterolemia Type 1 diabetes, under good control Serena Fernandes presents for follow-up of Type 1 diabetes Patient is currently managed with: Humalog insulin: 9 units at breakfast; 9 units at lunch; 12 units at supper and Lantus 18 units at bedtime . Most recent Hgb A1c is 7.5%. Reports occasional lows during the day. Typically eats a snack if BG <150 at HS. PLAN: See below. 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 Exam within last 12 months: yes Date: 10/16/20. Had bilat cataract extraction Dr. Lopez. Sees Dr. Browne in [place] every year routinely. Nephropathy: Negative Creat: 1.08; eGFR: >60 02/12/20 ; Mialb/creat ratio:95 on 03/03/19, patient takes quinapril Peripheral Neuropathy: Positive Reports bilateral numbness and tingling in feet intermittently Autonomic Neuropathy: Negative Patient aware of lows. He develops symptoms at 65-70. However, has had some low BG in 40-50 range; may be developing some hypoglycemia unawareness. Discussed importance of carrying treatment for hypoglycemia at all times.. Patient is not interested in the sensor at this time. Hyperlipidemia: Positive Currently taking: No lipid lowering agents. LFT's WNL. Unable to tolerate statins. 10/03/20 Tchol: 160; Tri ; HDL: 44 ; LDL: 91 Goal LDL <100, Goal trig <150. Stable. Hypertension: Positive. Currently taking: amlodipine, hydrochlorothiazide (HCTZ) and quinapril . Goal <130/80. BP: (!) 163/68 Reports always high in the doctors office . Cardiac: Negative Denies Chest pain or SOB at this time. Vascular: Negative ; has some mild edema. Positive carotid stenosis.+ carotid bruits bilaterally. PLAN: Recheck carotid ultrasound Feet: Negative sores or lesions at this time. Last foot exam: 06/20/21 Thyroid: Negative TSH: 0.85; Free T4: 0.93 02/11/21 Other: PSA: 6.16 07/04/19 (<6.60 is WNL) 4.58 on 02/18/18; recheck PSA at follow up. 4.66 02/05/17; (2.82 12/27/15; 04/01/15: 3.18; 04/03/14: 2.78; 03/11: 1.59) Plan: Type 1 diabetes mellitus with diabetic polyneuropathy (HCC) [E10.42] 1. Rx changes: Continue current regimen Humalog insulin: 9 units at breakfast; 9 units at lunch; 12 units at supper Lantus insulin: 18 units at bedtime 2. Education: Reviewed ABCs of diabetes management (respective goals in parentheses): A1C (7.0-8.0), blood pressure (<130/80), and cholesterol (LDL <100). 3. Compliance at present is estimated to be excellent. Efforts to improve compliance (if necessary) will be directed at dietary modifications: Limit portion sizes, increased exercise and regular blood sugar monitorin times daily. 4. Follow up: 4 months 5. Record blood sugar readings as instructed. Call if BG consistently <70 or >250. [phone] Continue to check blood sugar 4 times daily. Patient has been checking blood glucoses 3 times daily for the past 90 days. His insurance will not cover 4 checks per day he reports. Patient needs to continue checking blood glucoses 4 times daily. Blood glucose readings are used to adjust insulin doses for meals, monitor dietary compliance, and adjust for high or low blood glucoses by patient on a daily basis. Blood glucose readings are reviewed at office visits for adjustment in medication regimen and assistance with dietary management, and other self-management issues including exercise, etc. Prognosis: Good. Duration of need for diabetes testing equipment: Permanent #150 strips/month prescribed. Will apply for prior authorization. 6. Bring blood sugar meter to follow up appointment. Orders Placed This Encounter Procedures Comprehensive Metabolic Panel Hemoglobin A1c T4, Free TSH Electronically Signed by: Paty Ortega CNP 06/20/21 2:55 PM documented in this encounter [facility] 02-18-2021 History of Present illness Narrative Patient ID: Serena Fernandes is a 75 y.o. male Subjective: HPI: Serena Fernandes presents for follow-up of Type 1 diabetes The initial diagnosis of diabetes was made 26 years ago in 1994. Disease course has been stable. Mr. Fernandes is a 75-year-old male patient who presents the office for a follow-up of his type 1 diabetes. Patient reports he has been feeling fairly well. He reports continuing to have sciatic nerve pain (reports constant ache/trouble standing for long period of time). He reports may be not being quite as active as he usually is because of his discomfort and leg weakness. Patient's most recent hemoglobin A1c is 7.4%. Patient reports that he does follow a diabetic diet. His weight stable from his last visit with us. Complications from his diabetes includes neuropathy. He denies nephropathy or retinopathy. Pertinent negatives for diabetes include: no chest pain no shortness of breath no polyuria, polydipsia, polyphagia no nausea or vomiting no blurred vision no weight loss no recent hypoglycemia Pertinent positives for diabetes include: none Hypoglycemia symptoms include vision changes. Patient does not have hypoglycemic unawareness. He does not usually feel symptoms until about 65. Diabetic complications include diabetic neuropathy Pertinent negatives for diabetic complications include no: diabetic nephropathy and diabetic retinopathy Current diabetic treatment includes insulin injections Self Monitored blood glucose levels Patient has been checking BG TID. Breakfast: 66-210 Lunch: --- Supper: 62-210 Bedtime: 63-217 *Blood sugar records were brought with the patient to his appointment today and reviewed. Patient's weight is stable Patient is following a diabetic diet. Meal planning includes avoidance of concentrated sweets. An PASCALE inhibitor/angiotensin II receptor deepali is being taken. Patient does not see a director of gift planning. Eye exam is current. Currently taking: No oral hypoglycemic medications Humalog insulin: 9 units at breakfast; 9 units at lunch; 12 units at supper Lantus insulin: 18 units at bedtime Outpatient Medications Marked as Taking for the 02/18/21 encounter (Office Visit) with Mary Yan MD: amLODIPine (NORVASC) 10 MG tablet, Take 10 mg by mouth daily. blood sugar diagnostic (Contour Next Test Strips) strips, Use as directed 4 times per day. Dx E10.9 Patient with type 1 DM on insulin with hypoglycemia. Needs to check BG QID; takes insulin QID . insulin lispro (HumaLOG KwikPen Insulin) 100 unit/mL InPn, Uses approx. 35 units daily. DX code E 10.65 . Lantus Solostar U-100 Insulin 100 unit/mL (3 mL) InPn, Inject 18 (eighteen) Units under the skin nightly . pen needle, diabetic (BD Ultra-Fine Jolynn Pen Needle) 32 gauge x 5/32 Ndle, Use as directed 4x daily DX code E10.65 . quinapril-hydrochlorothiazide (ACCURETIC) 20-12.5 mg per tablet, take 1 tablet by ORAL route every day. tamsulosin (FLOMAX) 0.4 mg capsule, [DISCONTINUED] blood sugar diagnostic (Contour Next Test Strips) strips, Use as directed 4 times per day. Dx E10.9 Patient with type 1 DM on insulin with hypoglycemia. Needs to check BG QID; takes insulin QID . [DISCONTINUED] insulin lispro (HumaLOG KwikPen Insulin) 100 unit/mL InPn, Uses approx. 35 units daily. DX code E 10.65 . [DISCONTINUED] insulin lispro (HumaLOG KwikPen Insulin) 100 unit/mL InPn, Uses approx. 35 units daily. DX code E 10.65 . Review of Systems: Review of Systems Constitutional: Negative for appetite change, fatigue and unexpected weight change. Eyes: Negative for visual disturbance. Respiratory: Negative for cough and shortness of breath. Cardiovascular: Negative for chest pain and leg swelling. Gastrointestinal: Negative for abdominal pain, constipation, diarrhea, nausea and vomiting. Endocrine: Negative for polydipsia, polyphagia and polyuria. Genitourinary: Negative for frequency and urgency. Musculoskeletal: Positive for back pain. Skin: Negative for wound. Neurological: Positive for numbness. Negative for headaches. Psychiatric/Behavioral: Negative for sleep disturbance. The patient is not nervous/anxious. The following portions of the patient's history were reviewed and updated as appropriate: allergies, current medications, past family history, past medical history, past social history, past surgical history and problem list. Objective: BP (!) 194/70 Pulse 76 Ht 5' 8 Wt 76.2 kg (168 lb) BMI 25.54 kg/m Wt Readings from Last 3 Encounters: 02/18/21 76.2 kg (168 lb) 10/18/20 76.2 kg (168 lb) 06/18/20 75.8 kg (167 lb) Physical Exam: General: alert, appears stated age and cooperative Eyes: conjunctivae/corneas clear. PERRL, EOM's intact. Neck: no adenopathy, supple, symmetrical, trachea midline. Thyroid: No thyromegaly appreciated Lung: clear to auscultation bilaterally Heart: regular rate and rhythm, S1, S2 normal, no murmur, click, rub or gallop Extremities: extremities normal, atraumatic, no cyanosis. No edema Feet: Dry skin, Bilateral Feet: normal DP. Monofilament exam Normal , bilateral lower extremities. Neuro: normal without focal findings, mental status, speech normal, alert and oriented x3 and [facility] Lab Review 02/11/21 HgbA1c 7.4% Creat 1.08, Na 138, K 4.2 AST 15, ALT 11 TSH 0.85, FT4--0.93 10/03/20 Hgb A1c: 8.3% Creat: 1.04; eGFR: >60 AST: 14; ALT: 10 K: 3.8 Tchol: 160; Tri ; HDL: 44 ; LDL: 91 06/10/20 Hgb A1c: 8.1% Creat: 1.01; eGFR: >60 AST: 16; ALT: 12 K: 4.0 CBC: WBC:8.20; Hgb: 14.1; Hct: 42.3; Plt: 216 TSH: 0.68 ; FreeT4: 0.97 03/11/2020 Hgb A1c: 7.5% Creat: 1.07; eGFR: >60 AST: 16; ALT: 13 K: 3.9 11/03/19 Hgb A1c: 8.4% Creat: 1.08; eGFR: >60 AST: 14; ALT: 10 K: 3.9 Tchol: 163; Tri ; HDL: 42 ; LDL: 103 07/04/2019 Hemoglobin A1c 8.3% Creatinine 1.00 GFR greater than 60 AST 18 ALT 15 PSA 6.1 WBC 8 hemoglobin 13 hematocrit 40 platelets 218 03/03/19 Hemoglobin A1c 8.4% Creatinine 1.0, sodium 138, potassium 4.2, estimated GFR greater than 60 AST 16, ALT 13 Total cholesterol 164, triglycerides 66, HDL 53, LDL 98 WBC 7.5, hemoglobin 14.1, hematocrit 41.7, platelet count 218,000 TSH 0.52, FT4--0.98 Micro 11/creatinine ratio 95 11/02/2018: Hemoglobin A1c 8.4% Creatinine 1.2, BUN 23, GFR greater than 60 AST 17 ALT 18 06/27/18 Hgb A1c: 8.2% Creat: 1.0; eGFR: >60 AST: 19; ALT: 17 K: 4.2 CBC: WBC:7.9; Hgb: 14.0; Hct: 42.0; Plt: 213 Tchol: 162; Tri ; HDL: 50 ; LDL: 98 TSH: 0.88; FreeT4: 0.95 Microalbumin/creatinine Ratio: 93 02/18/18 ([facility]) Hgb A1C 7.6% Cr 1.0, EGFR >60, K 4.0 AST 21, ALT 16 PSA 4.58 (nml range 0-6.5) 10/18/17 HgbA1C 8.3% Creat 1.1 K 4.1, eGFR >60 Assessment: Dx: 1. Type 1 diabetes mellitus with diabetic polyneuropathy (HCC) Hemoglobin A1c Comprehensive Metabolic Panel CBC and Differential Lipid Panel External Lab Microalbumin/Creatinine 2. Bilateral carotid artery stenosis Ultrasound doppler carotid 3. Essential hypertension 4. 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) blood sugar diagnostic (Contour Next Test Strips) strips Type 1 diabetes, under good control Serena E Fernandes presents for follow-up of Type 1 diabetes Patient is currently managed with: Humalog insulin:9 units at breakfast; 9 units at lunch; 12 units at supper and Lantus 18 units at bedtime . Most recent Hgb A1c is 7.4%. Reports occasional lows during the day. Typically eats a snack if BG <150 at HS. PLAN: See below. 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 Exam within last 12 months: yes Date: 10/16/20. Had bilat cataract extraction Dr. Lopez. Sees Dr. Browne in [place] every year routinely. Nephropathy: Negative Creat: 1.08; eGFR: >60 02/12/20 ; Mialb/creat ratio:95 on 03/03/19, patient takes quinapril Peripheral Neuropathy: Positive Reports bilateral numbness and tingling in feet intermittently Autonomic Neuropathy: Negative Patient aware of lows. He develops symptoms at 65-70. However, has had some low BG in 40-50 range; may be developing some hypoglycemia unawareness. Discussed importance of carrying treatment for hypoglycemia at all times.. Patient is not interested in the sensor at this time. Hyperlipidemia: Positive Currently taking: No lipid lowering agents. LFT's WNL. Unable to tolerate statins. 10/03/20 Tchol: 160; Tri ; HDL: 44 ; LDL: 91 Goal LDL <100, Goal trig <150. Stable. Hypertension: Positive. Currently taking: amlodipine, hydrochlorothiazide (HCTZ) and quinapril . Goal <130/80. BP: (!) 194/70 Reports always high in the doctors office . Cardiac: Negative Denies Chest pain or SOB at this time. Vascular: Negative ; has some mild edema. Positive carotid stenosis.+ carotid bruits bilaterally. PLAN: Recheck carotid ultrasound Feet: Negative sores or lesions at this time. Last foot exam: 02/18/21 Thyroid: Negative TSH: 0.85; Free T4: 0.93 02/11/21 Other: PSA: 6.16 07/04/19 (<6.60 is WNL) 4.58 on 02/18/18; recheck PSA at follow up. 4.66 02/05/17; (2.82 12/27/15; 04/01/15: 3.18; 04/03/14: 2.78; 03/11: 1.59) Plan: Type 1 diabetes mellitus with diabetic polyneuropathy (HCC) [E10.42] 1. Rx changes: Continue current regimen Humalog insulin: 9 units at breakfast; 9 units at lunch; 12 units at supper Lantus insulin: 18 units at bedtime 2. Education: Reviewed ABCs of diabetes management (respective goals in parentheses): A1C (7.0-8.0), blood pressure (<130/80), and cholesterol (LDL <100). 3. Compliance at present is estimated to be excellent. Efforts to improve compliance (if necessary) will be directed at dietary modifications: Limit portion sizes, increased exercise and regular blood sugar monitorin times daily. 4. Follow up: 4 months 5. Record blood sugar readings as instructed. Call if BG consistently <70 or >250. [phone] Continue to check blood sugar 4 times daily. Patient has been checking blood glucoses 3 times daily for the past 90 days. His insurance will not cover 4 checks per day he reports. Patient needs to continue checking blood glucoses 4 times daily. Blood glucose readings are used to adjust insulin doses for meals, monitor dietary compliance, and adjust for high or low blood glucoses by patient on a daily basis. Blood glucose readings are reviewed at office visits for adjustment in medication regimen and assistance with dietary management, and other self-management issues including exercise, etc. Prognosis: Good. Duration of need for diabetes testing equipment: Permanent #150 strips/month prescribed. Will apply for prior authorization. 6. Bring blood sugar meter to follow up appointment. Orders Placed This Encounter Procedures Hemoglobin A1c Comprehensive Metabolic Panel CBC and Differential Lipid Panel External Lab Microalbumin/Creatinine Ultrasound doppler carotid Electronically signed by Mary Yan MD 02/18/21 9:57 PM documented in this encounter [facility] Diagnosis Bilateral carotid artery stenosis Occlusion and stenosis of carotid artery without mention of cerebral infarction [facility] Diagnosis Type 1 diabetes mellitus with diabetic polyneuropathy (HCC)- Primary Essential hypertension Unspecified essential hypertension Pure hypercholesterolemia [facility] Diagnosis 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)- Primary Essential hypertension Unspecified essential hypertension Pure hypercholesterolemia [facility] Diagnosis 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)- Primary 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) Essential hypertension Unspecified essential hypertension Bilateral carotid artery stenosis Occlusion and stenosis of carotid artery without mention of cerebral infarction Prostate cancer screening Special screening for malignant neoplasm of prostate [facility] Diagnosis 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)- Primary Essential hypertension Unspecified essential hypertension Elevated PSA Elevated prostate specific antigen (PSA) [facility] Diagnosis 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)- Primary Essential hypertension Unspecified essential hypertension Pure hypercholesterolemia Bilateral carotid artery stenosis Occlusion and stenosis of carotid artery without mention of cerebral infarction Prostate cancer screening Special screening for malignant neoplasm of prostate [facility] Diagnosis 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)- Primary [facility] Diagnosis 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) [facility]* Diagnosis Stage 3b chronic kidney disease (CMS/HCC)- Primary Essential hypertension Unspecified essential hypertension Pure hypercholesterolemia Type 1 diabetes mellitus with diabetic neuropathy (CMS/HCC) documented in this encounter [facility] Work Phone: Evaluation note* Diagnosis 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)- Primary 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) Essential hypertension Unspecified essential hypertension Pure hypercholesterolemia [facility]* Diagnosis COVID-19- Primary COVID-19 Acute respiratory failure with hypoxia (CMS/HCC) Acute congestive heart failure, unspecified heart failure type (CMS/HCC) Pneumonia of both lungs due to infectious organism, unspecified part of lung Abnormal electrocardiogram (ECG) (EKG) Acute on chronic systolic (congestive) heart failure (CMS/HCC) documented in this encounter [facility] Work Phone: Evaluation note* Diagnosis 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- Primary Dyslipidemia Other and unspecified hyperlipidemia Congestive heart failure, unspecified HF chronicity, unspecified heart failure type (HCC) [facility]* At least a 5 yr HX of LBP (previous HX of sciatica). No recent film studies have been done. He willbe a low fall risk. The patient will continue his therapy at [place]. Physical findings include limited trunk ROM with discomfort. Continue with trunk mech trng, STW (needling), and core stability/ROM exercises. * Clinical Presentation: Stable and/or uncomplicated characteristics. * Level of Complexity: low * Problem List: activity limitations, ADLs/IADLs/self care skills, decreased functional level, decreased knowledge of HEP, decreased knowledge of precautions, fall risk, gait/locomotion, pain, range ofmotion/joint mobility and strength. [facility] Work Phone: History of Present illness NarrativePatient identified by name and date of . Patient demonstrated good understanding of exercises and stretching with cues to complete after instruction. He presented with palpable tension in gluts and QL and paraspinals that responded well to STW.[facility] [employer] Work Phone: History of Present illness Narrative* Decreased myofasical restriction with STW on the R QL region but was still very tender and did still have spasms. Continued use of palm of hand during STW for improved comfort. * Spasm palpated along piriformis on the R as well that was very tender to palpation and STW. * Added SKTC this date with relief noted d/t tightness in LB. [facility] [employer] Work Phone: History of Present illness Narrative* Tightness along the ITB and QL continues. * Palpable spams in both regions with with STW. * Fair trunk flexibility with SKTC. [facility] [employer] Work Phone: History of Present illness NarrativePatient identified by name and date of . Patient was able to progress with several exercises this date with addition of becka disc and focus on maintain upright posture. He presented with increased muscle tension in IT band and QL this date.[facility] [employer] Work Phone: History of Present illness NarrativePatient identified by name and date of . Added IT band stretch this date and instructed for HEP due to palpable tension. Reviewed importance of HEP even if he feels sore to increased with ROM and decrease with muscle tension, he verbalized good understanding. Patient continues to present with palpable muscle tension/restrictions in his piriforms.[facility] [employer] Work Phone: History of Present illness NarrativePatient identified by name and date of . Added IT band stretch this date and instructed for HEP due to palpable tension. Reviewed importance of HEP even if he feels sore to increased with ROM and decrease with muscle tension, he verbalized good understanding. Patient continues to present with palpable muscle tension/restrictions in his piriforms.[facility] [employer] Work Phone: History of Present illness NarrativePatient identified by name and date of . Pt reassessed this date by supervising PT with improvements noted in MMT of RLE compared to eval, however, pt does still have functional restriction and lingering pain. Pt presents with apparent rotation of Right pelvis forward and obvious muscle tension throughout RIght lumbar/pelvis musculature. Pt responded well to gentle STM performed this date aswell as addition of EStim to Right lumbar/hip region. Pt demonstrated improved mobility and reported decreased pain after session. SPent much time edu pt on possible options with skilled PT and prognosis moving forward with pt being a good candidate for continued skilled PT and possible inclusion of trigger point dry needling.[facility] Work Phone: History of Present illness NarrativeSTW to the QL, glutes, hip flexor and IT band performed for decreasing muscle tightness and decreasing pain. IFC to R Lumbar/Glute region x 15' in S/L w/ MHP performed all per patient request for pain reduction. Pt and PT discussed discontinuing therapeutic exercise and assigning a new HEP. Pt and PT also discussed insurance not covering a TENS unit for the patient.[facility] [employer] Work Phone: reason for referral (narrative)* Consultation (Routine) - Authorized Specialty Diagnoses / Procedures Referred By Jimy t Referred To Contact Nephrology Diagnoses Stage 3b chronic kidney disease ([facility]/HCC) Procedures Follow Up In Nephrology Obed Albert DO [address] [place] [id number] Referral ID Status Reason Start Date Expiration Date V isits Requested Visits Authorized [id number] Authorized 08/25/2023 08/24/2024 1 1 [facility] Work Phone: Reason for visit Narrative* Initial Evaluation . lumbar DDD. * Referred by: [facility] Work Phone: Instructions * Patient Instructions - Alexandra Givens CNP - 02/28/2018 10:34 AM EDT Please carry glucose tablets with you at all times If you know you are going to be doing yard work to 2-4 less units of Humalog at breakfast and lunchespecially . Eat a snack if you have not eaten in 4-5 hours for sure Continue Levemir 20 units at bedtime Continue Humalog 10 units at breakfast and lunch and 14-15 units at dinner. (2- 4 units less if youplan to work in the yard) For blood pressure: Limit sodium to 2000 mg daily. Limit processed meats, cold cuts, boxed foods, preprepared frozen meals, and canned vegetables. Avoid adding salt to foods. Read food labels for sodium content. in this encounter* Patient Instructions - Ya Parker PA-C - 06/17/2017 11:43 AM EDT Serena Fernandes is on: Humalog 9 units at breakfast, Humalog 9 units at lunch, Humalog 14 units at dinner, Levemir 20 units at bedtime. Change insulin doses to: Humalog 10 units at breakfast, Humalog 9 units at lunch, Humalog 15 units at dinner, Levemir 20 units at bedtime. Continue to monitor blood sugars at before meals and bedtime and report to office if hyperglycemia or hypoglycemia develops. Call to report if blood sugars are out of range between apt for further adjustments in this encounter* Patient Instructions* Keeley Patton CNP - 07/17/2019 11:08 AM EDT Cut down on night time snacking, to hopefully improve morning readings Increase breakfast insulin dose to 11units. Continue same lunch and dinner doses Continue sliding scale at meals. documented in this encounter Assessments Diagnosis Type 1 diabetes mellitus wit h diabetic neuropathy (HCC) - Primary Essential hypertension Unspecified essential hypertension Diagnosis Atherosclerosis of both [place] tid arteries Diagnosis Type 1 diabetes mellitus wit h diabetic neuropathy (HCC) - Primary Essential hypertension Unspecified essential hypertension Pure hypercholesterolemia Prostate cancer screening Special screening for malignant neoplasm of prostate Diagnosis Type 1 diabetes mellitus wit h diabetic neuropathy (HCC) - Primary Essential hypertension Unspecified essential hypertension Pure hypercholesterolemia Diagnosis 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)- Primary Essential hypertension Unspecified essential hypertension Diagnosis Type 1 diabetes mellitus wit h diabetic neuropathy (HCC) - Primary Essential hypertension Unspecified essential hypertension Pure hypercholesterolemia Diagnosis Type 1 diabetes mellitus with diabetic polyneuropathy (HCC)- Primary Essential hypertension Unspecified essential hypertension Pure hypercholesterolemia Diagnosis Type I diabetes mellitus with neurological manifestations, uncontrolled (HCC) Type 1 diabetes mellitus with diabetic polyneuropathy (HCC) Pure hypercholesterolemia Diagnosis Type 1 diabetes mellitus with diabetic polyneuropathy (HCC)- Primary 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) Essential hypertension Unspecified essential hypertension Pure hypercholesterolemia Diagnosis 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)- Primary Pure hypercholesterolemia Essential hypertension Unspecified essential hypertension 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) Prostate cancer screening Special screening for malignant neoplasm of prostate Summary Purpose Family History No Family History Records FoundNo Family History Records FoundNo Family History Records FoundNo Family History Records FoundNo Family History Records FoundNo Family History Records FoundNo Family History Records FoundNo Family History Records FoundNo Family History Records FoundNo Family History Records Found Advance Directives Documents on File Type Date Recorded Patient [employer] Expl anation Advance Directives and Living Will Documents on File Type Date Recorded Patient [employer] Expl anation Advance Directives and Livin g Will 10/18/2020 1:33 PM Documents on File Type Date Recorded Patient [employer] Expl anation Advance Directives and Livin g Will 10/18/2020 1:33 PM Documents on File Type Date Recorded Patient [employer] Expl anation Advance Directives and Livin g Will 02/21/2021 3:38 PM Documents on File Type Date Recorded Patient [employer] Expl anation Advance Directives and Livin g Will 02/21/2021 3:38 PM Latest Code Status on File Code Status Date Activated Date Inactivated Comments Full Code 10/11/2023 5:02 AM Question Answer Comments Plan of Care: Code Status Discussion Completed Decision Maker: Patient History of Present Illness * Keeley Patton, TRISTAN - 11/11/2018 8:11 AM EST Formatting of this note may be different from the original. Patient ID: Serena Fernandes is a 72 y.o. male Subjective: HPI: Serena Fernandes presents for follow-up of Type 1 diabetes The initial diagnosis of diabetes was scil43-78 years ago in 1994. Disease course has been stable. Mr. Fernandes is a 72-year-old male patient who presents the office for a follow-up of his type 1 diabetes. Patient reports he has been feeling fairly well however he has been having issues with back and leg pain. He reports having sciatic nerve pain and has been doing some physical therapyto treat that. He did see his primary care physician Dr. Mirza who prescribed him a course of steroids. The patient states that he took a couple of doses of those and noticed that his blood sugars were running in the 4 and 500s. He states that the steroids really did not improve his symptoms at all so he stopped taking them. In regards to his diabetes he is feeling quite well. He denies any complaints today. He has not been having any chest pain or shortness of breath. His weight has been stable. He checks his blood sugar very regularly at least 4 times per day. He did bring his blood sugar records with him to his appointment today which were reviewed. Pertinent negatives for diabetes include: no chest pain no shortness of breath no polyuria, polydipsia, polyphagia no nausea or vomiting no blurred vision no weight loss no recent hypoglycemia Pertinent positives for diabetes include: none Hypoglycemia symptoms include hunger and sweats, dizziness. Patient does not to have hypoglycemic unawareness. He does not usually feel symptoms until about 63. Diabetic complications include diabetic neuropathy Pertinent negatives for diabetic complications include no: diabetic nephropathy and diabetic retinopathy Current diabetic treatment includes insulin injections Self Monitored blood glucose levels Patient has been checking BG QID AC/HS. Breakfast: 119-220 Lunch: 99-230 Supper: 75-215 Bedtime: 130-232 *Blood sugar records were brought with the patient to his appointment today and reviewed. Patient's weight is stable, slight increase of 4 pounds since last appointment Patient is following a diabetic diet. He does occasionally eat larger portions than what he should,usually at dinnertime. Meal planning includes avoidance of concentrated sweets. An PASCALE inhibitor/angiotensin II receptor deepali is being taken. Patient does not see a director of gift planning. Eye exam is current. Patient with a history of hypertension. Currently managed with oral antihypertensives. Compliance is stated as good. Attempts to follow a diet low in salt. Currently taking: No oral hypoglycemic medications Humalog insulin: 10 units at breakfast; 10 units at lunch; 14-15 units at supper Levemir insulin: 20 units at bedtime Current Outpatient Prescriptions Medication Sig Dispense Refill amLODIPine (NORVASC) 10 MG tablet Take 10 mg by mouth daily. blood sugar diagnostic (CONTOUR NEXT TEST STRIPS) strips E10.9 Use as directed 4 times per day. Patient with type 1 DM on insulin with hypoglycemia.. 400 each 3 insulin lispro (HumaLOG KwikPen Insulin) 100 unit/mL InPn Uses approx. 35 units daily. DX code E 10.65. 5 pen 11 NOVOFINE 32 32 gauge x 1/4 Ndle USE DIRECTED FOUR TIMES A DAY FOR INSULIN INJECTION 400 each 3 quinapril-hydrochlorothiazide (ACCURETIC) 20-12.5 mg per tablet take 1 tablet by ORAL route every day. tamsulosin (FLOMAX) 0.4 mg capsule LANTUS SOLOSTAR U-100 INSULIN 100 unit/mL (3 mL) InPn Inject 20 (twenty) Units under the skin nightly . 5 pen 3 No current facility-administered medications for this visit. Review of Systems: Review of Systems Constitutional: Negative for appetite change, fatigue and unexpected weight change. Eyes: Negative for visual disturbance. Respiratory: Negative for cough and shortness of breath. Cardiovascular: Negative for chest pain and leg swelling. Gastrointestinal: Negative for abdominal pain, constipation, diarrhea, nausea and vomiting. Endocrine: Negative for polydipsia, polyphagia and polyuria. Genitourinary: Negative for frequency and urgency. Skin: Negative for wound. Neurological: Negative for numbness and headaches. Psychiatric/Behavioral: Negative for sleep disturbance. The patient is not nervous/anxious. The following portions of the patient's history were reviewed and updated as appropriate: allergies, current medications, past family history, past medical history, past social history, past surgicalhistory and problem list. Objective: BP (!) 172/74 Pulse 71 Ht 5' 8 Wt 77.6 kg (171 lb) BMI 26.00 kg/m Wt Readings from Last 3 Encounters: 11/11/18 77.6 kg (171 lb) 07/05/18 76 kg (167 lb 9.6 oz) 02/28/18 78 kg (172 lb) Physical Exam: General: alert, appears stated age and cooperative Eyes: conjunctivae/corneas clear. PERRL, EOM's intact. Neck: no adenopathy, supple, symmetrical, trachea midline. Thyroid: No thyromegaly appreciated Lung: clear to auscultation bilaterally Heart: regular rate and rhythm, S1, S2 normal, no murmur, click, rub or gallop Extremities: extremities normal, atraumatic, no cyanosis. No edema Feet: Dry skin, Bilateral Feet: normal DP. Monofilament exam Normal , bilateral lower extremities. Neuro: normal without focal findings, mental status, speech normal, alert and oriented x3 and [facility] Lab Review 11/02/2018: Hemoglobin A1c 8.4% Creatinine 1.2, BUN 23, GFR greater than 60 AST 17 ALT 18 06/27/18 *labs reviewed 11/11/18 Hgb A1c: 8.2% Creat: 1.0; eGFR: >60 AST: 19; ALT: 17 K: 4.2 CBC: WBC:7.9; Hgb: 14.0; Hct: 42.0; Plt: 213 Tchol: 162; Tri ; HDL: 50 ; LDL: 98 TSH: 0.88; FreeT4: 0.95 Microalbumin/creatinine Ratio: 93 02/18/18 ([facility]) Hgb A1C 7.6% Cr 1.0, EGFR >60, K 4.0 AST 21, ALT 16 PSA 4.58 (nml range 0-6.5) 10/18/17 HgbA1C 8.3% Creat 1.1 K 4.1, eGFR >60 02/05/17 Hgb A1c: 8.4% PSA: 4.66 11/10/16 HgbA1C 8.7% 05/07/16 HgbA1C 9.1% K 4.3 AST 20, ALT 19 TChol 173, TG 77, HDL 50, LDL 108 WBC 7.7, Hgb 14.9, Hct 45.5, Plt 182K TSH 0.48, FT4--1.06 Microalb/creat ratio 38 12/27/15: Hgb A1c: 8.9% PSA: 2.82 04/01/15 Creat: 0.90 AST: 21; ALT: 17 Tchol: 188; Tri ; HDL: 55 ; LDL: 115 TSH: 0.610 Microalbumin/creatinine Ratio: 6.4 Assessment: Dx: SNOMED CT(R) 1. 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) TYPE 1 DIABETES MELLITUS CBC and Differential Hemoglobin A1c Lipid Panel T4, Free TSH 2. Essential hypertension ESSENTIAL HYPERTENSION Comprehensive Metabolic Panel External Lab Microalbumin/Creatinine Type 1 diabetes, under good control Serena Fernandes presents for follow-up of Type 1 diabetes Patient is currently managed with: Humaloginsulin:10 units at breakfast; 10 units at lunch; 14-15 units at supper and Levemir 20 units at bedtime . Most recent Hgb A1c is 8.4%. Patient states that his blood sugars have actually been running quite well, however there was that time. When he was on a course of steroids were his blood sugars were in the 4 and 500s. He also states he has gained a couple of pounds and is not quite as active chandana normally is in the summertime. He does report he gets a little bit concerned about having low blood sugars as he does not recognize a low until he is about 63. He does have symptoms of low blood sugar though. PLAN: CPM. 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 Exam within last 12 months: yes Date: 08/2018 . Had bilat cataract extraction Dr. Lopez. Sees Dr. Browne in [place] every year routinely. Nephropathy: Negative Creat: 1.2, eGFR >60 on 11/02/18; Mialb/creat ratio:38 05/07/16, patient takesquinapril Peripheral Neuropathy: Positive Reports bilateral numbness and tingling in feet intermittently Autonomic Neuropathy: Negative Patient aware of lows. She developed symptoms at 65-70. Discussed importance of carrying glucose tablets with him at all times. Patient is not interested in the sensor at this time. Hyperlipidemia: Positive Currently taking: No lipid lowering agents. LFT's WNL. Unable to tolerate statins. 05/2016: TChol 173, TG 77, HDL 50, LDL 108. Goal LDL <100, Goal trig <150. Stable. No recent lipid panel for comparison Hypertension: Positive. Currently taking: amlodipine, hydrochlorothiazide (HCTZ) and quinapril . Goal <130/80. 172/74 BP, recheck 148/76. Manual. Patient instructed to call Dr. Mirza's office for recheck in the next 1-2 days. He states that he calls and makes an appointment Dr. Mirza as needed. Cardiac: Negative Denies Chest pain or SOB at this time. Vascular: Negative edema. Positive carotid stenosis. Has followed with Dr. Browne. Feet: Negative sores or lesions at this time. Last foot exam: 11/11/18 Thyroid: Negative Other: PSA: 4.58 on 02/18/18 4.66 02/05/17; (2.82 12/27/15; 04/01/15: 3.18; 04/03/14: 2.78; 03/11: 1.59) Plan: 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) [E10.40] 1. Rx changes: Continue current regimen Humalog insulin: 10 units at breakfast; 10 units at lunch; 14-15 units at supper Levemir insulin: 20 units at bedtime . Patient states that his insurance will no longer be covering Levemir insulin, He was given a new prescription to start Lantus insulin instead Increase strenuous activity as able, if back and leg pain has improved. 2. Education: Reviewed ABCs of diabetes management (respective goals in parentheses): A1C (7.0-8.0), blood pressure (<130/80), and cholesterol (LDL <100). 3. Compliance at present is estimated to be excellent. Efforts to improve compliance (if necessary)will be directed at dietary modifications: Limit portion sizes, increased exercise and regular blood sugar monitorin times daily. 4. Follow up: 4 months 5. Record blood sugar readings as instructed. Call if BG consistently <70 or >250. [phone] Continue to check blood sugar 4 times daily. 6. Bring blood sugar meter to follow up appointment. Orders Placed This Encounter Procedures CBC and Differential Comprehensive Metabolic Panel External Lab Microalbumin/Creatinine Hemoglobin A1c Lipid Panel T4, Free TSH Electronically signed by Keeley BERMAN 11/11/1911:02 PM in this encounter* Ya Parker PA-C - 06/17/2017 11:36 AM EDT Formatting of this note may be different from the original. Subjective: Patient ID: Serena Fernandes is a 71 y.o. male. Diabetes He presents for his follow-up diabetic visit. He has type 1 diabetes mellitus. The initial diagnosis of diabetes was made 22 years ago. His disease course has been stable. Hypoglycemia symptoms include confusion (with ypoglycemia) and sweats. Pertinent negatives for hypoglycemia include no headaches or nervousness/anxiousness. (With BG ~ 80 ) Associated symptoms include foot paresthesias (under toes). Pertinent negatives for diabetes include no blurred vision, no chest pain, no fatigue, no foot ulcerations, no polydipsia, no polyphagia,no polyuria, no visual change, no weakness and no weight loss. Symptoms are stable. Diabetic complications include autonomic neuropathy (slight hypoglycemic unawareness in the past recently aware of BG ~ 80), nephropathy (on quinapril ) and peripheral neuropathy. Pertinent negatives for diabetic complications include no heart disease or retinopathy. Current diabetic treatment includes insulin injections. He is compliant with treatment all of the time. He is currently taking insulin pre-breakfast, pre-lunch, pre-dinner and at bedtime (Humalog 07/10/14/ Levemir 20). His weight is stable. He is following a diabetic and generally healthy diet. He participates in exercise daily. He monitors blood glucose at home 3-4 x per day. There is no change in his home blood glucose trend. An PASCALE inhibitor/a ngiotensin II receptor deepali is being taken. He does not see a director of gift planning.Eye exam is current (Jun 16). The following portions of the patient's history were reviewed and updated as appropriate: allergies, current medications, past family history, past medical history, past social history, past surgicalhistory and problem list. Review of Systems Constitutional: Negative for appetite change, fatigue, unexpected weight change and weight loss. Eyes: Negative for blurred vision and visual disturbance. Respiratory: Negative for cough and shortness of breath. Cardiovascular: Negative for chest pain and leg swelling. Gastrointestinal: Negative for abdominal pain, constipation, diarrhea, nausea and vomiting. Endocrine: Negative for polydipsia, polyphagia and polyuria. Genitourinary: Negative for frequency and urgency. Skin: Negative for wound. Neurological: Negative for weakness, numbness and headaches. Psychiatric/Behavioral: Positive for confusion (with ypoglycemia). Negative for sleep disturbance. The patient is not nervous/anxious. Objective: Physical Exam Constitutional: He is oriented to person, place, and time. He appears well- developed and well-nourished. No distress. HENT: Head: Normocephalic and atraumatic. Mouth/Throat: Oropharynx is clear and moist. Eyes: EOM are normal. Neck: Normal range of motion. Neck supple. No thyromegaly present. Cardiovascular: Normal rate, regular rhythm and normal heart sounds. No murmur heard. Pulmonary/Chest: Effort normal and breath sounds normal. No respiratory distress. He has no wheezes. He has no rales. Musculoskeletal: He exhibits no edema. Neurological: He is alert and oriented to person, place, and time. No sensory deficit. Psychiatric: Judgment normal. Assessment/Plan: Type 1 diabetes, under fair control Serena Fernandes presents for follow-up of Type 1 diabetes Patient is currently managed with: Humaloginsulin: 9 units at breakfast; 9 units at lunch; 14 units at supper and Levemir insulin: 20 units at bedtime . Most recent Hgb A1c was 8.2 down 9.1% on 05/07/16. Blood sugars reviewed PLAN: Serena Fernandes is on: Humalog 9 units at breakfast, Humalog 9 units at lunch, Humalog 14 units at dinner, Levemir 20 units at bedtime. Change insulin doses to: Humalog 10 units at breakfast, Humalog 9 units at lunch, Humalog 15 units at dinner, Levemir 20 units at bedtime. Continue to monitor blood sugars at before meals and bedtime and report to office if hyperglycemia or hypoglycemia develops. 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 Exam within last 12 months: yes Date: 06/17. Had bilat cataract extraction Dr. Lopez. Sees Dr. Karoline Ware Nephropathy: Negative Creat: 1.0 ; Mialb/creat ratio:67 06/01/17, patient takes quinapril Peripheral Neuropathy: Negative Denies symptoms associated with neuropathy (numbness and/or tingling) Autonomic Neuropathy: Positive Patient aware of some lows, however he does have some occasional hypoglycemia unawareness if <60. Hyperlipidemia: Positive Currently taking: No lipid lowering agents. LFT's WNL. Unable to tolerate statins. Hypertension: Positive. Currently taking: hydrochlorothiazide (HCTZ) and quinapril BP: 148/62 Cardiac: Negative Denies Chest pain or SOB at this time. Advised him to stop smoking. Vascular: Negative edema. Positive carotid stenosis. Has followed with Dr. Browne. Feet: Negative sores or lesions at this time. Last foot exam: 06/17/17 Thyroid: Negative Other: PSA: 4.66 02/05/17; (2.82 12/27/15; 04/01/15: 3.18; 04/03/14: 2.78; 03/11: 1.59) LABS- 06/01/17 HgbA1C 8.2% TSH 1.00 Free T4 0.95 Lipid Panel Total Cholesterol 173 Triglycerides 83 HDL 51 LDL 105 Microal/creat ratio 67 Serum Creatinine 1.0 Hepatic Enzymes AST 20 ALT 18 Last CBC-WBC8.2/ Hgb- 14.6/ Hct- 44.1/ Plt [id number] Problem List Items Addressed This Visit Endocrine Type I diabetes mellitus with neurological manifestations (HCC) - Primary Relevant Orders Hemoglobin A1c Basic Metabolic Panel Cardiovascular and Mediastinum Essential hypertension Other Pure hypercholesterolemia in this encounter* Keeley Patton, TRISTAN - 07/17/2019 11:00 AM EDT Patient ID: Serena Fernandes is a 73 y.o. male Subjective: HPI: Serena Fernandes presents for follow-up of Type 1 diabetes The initial diagnosis of diabetes was [id number] years ago in 1994. Disease course has been stable. Mr. Fernandes is a 72-year-old male patient who presents the office for a follow-up of his type 1 diabetes. Patient reports he has been feeling fairly well. He reports continuing to have sciatic nerve pain and has continued with physical therapy. He reports may be not being quite as active as he usually is because of his discomfort. Patient's most recent hemoglobin A1c is 8.3% which is relatively unchanged from his previous. Patient reports that he does follow a diabetic diet. His weight stable from his last visit with us. Complications from his diabetes includes neuropathy. He deniesnephropathy or retinopathy. Pertinent negatives for diabetes include: no chest pain no shortness of breath no polyuria, polydipsia, polyphagia no nausea or vomiting no blurred vision no weight loss no recent hypoglycemia Pertinent positives for diabetes include: none Hypoglycemia symptoms include hunger and sweats, dizziness. Patient does not have hypoglycemic unawareness. He does not usually feel symptoms until about 65. Diabetic complications include diabetic neuropathy Pertinent negatives for diabetic complications include no: diabetic nephropathy and diabetic retinopathy Current diabetic treatment includes insulin injections Self Monitored blood glucose levels Patient has been checking BG QID AC/HS. Breakfast: 71-290 Lunch: 139-280 Supper: 56-233 Bedtime: 96-278 *Blood sugar records were brought with the patient to his appointment today and reviewed. Patient's weight is stable Patient is following a diabetic diet. Meal planning includes avoidance of concentrated sweets. An PASCALE inhibitor/angiotensin II receptor deepali is being taken. Patient does not see a director of gift planning. Eye exam is current. Currently taking: No oral hypoglycemic medications Humalog insulin: 10 units at breakfast; 10 units at lunch; 14-15 units at supper Lantus insulin: 18 units at bedtime Current Outpatient Medications Medication Sig Dispense Refill amLODIPine (NORVASC) 10 MG tablet Take 10 mg by mouth daily. blood sugar diagnostic (CONTOUR NEXT TEST STRIPS) strips Use as directed 4 times per day. Dx E10.9 Patient with type 1 DM on insulin with hypoglycemia. Needs to check BG QID; takes insulin QID . 150 each 11 insulin degludec 200 unit/mL (3 mL) InPn Use as directed qHS (approx 18 units/day) . 9 mL 3 insulin lispro (HumaLOG KwikPen Insulin) 100 unit/mL InPn Uses approx. 35 units daily. DX code E 10.65 . 5 pen 11 NOVOFINE 32 32 gauge x 1/4 Ndle USE DIRECTED FOUR TIMES A DAY FOR INSULIN INJECTION 400 each 3 quinapril-hydrochlorothiazide (ACCURETIC) 20-12.5 mg per tablet take 1 tablet by ORAL route every day. tamsulosin (FLOMAX) 0.4 mg capsule LANTUS SOLOSTAR U-100 INSULIN 100 unit/mL (3 mL) InPn Inject 20 (twenty) Units under the skin nightly . 5 pen 3 No current facility-administered medications for this visit. Review of Systems: Review of Systems Constitutional: Negative for appetite change, fatigue and unexpected weight change. Eyes: Negative for visual disturbance. Respiratory: Negative for cough and shortness of breath. Cardiovascular: Negative for chest pain and leg swelling. Gastrointestinal: Negative for abdominal pain, constipation, diarrhea, nausea and vomiting. Endocrine: Negative for polydipsia, polyphagia and polyuria. Genitourinary: Negative for frequency and urgency. Musculoskeletal: Positive for back pain. Skin: Negative for wound. Neurological: Positive for numbness. Negative for headaches. Psychiatric/Behavioral: Negative for sleep disturbance. The patient is not nervous/anxious. The following portions of the patient's history were reviewed and updated as appropriate: allergies, current medications, past family history, past medical history, past social history, past surgicalhistory and problem list. Objective: BP (!) 152/69 Pulse 71 Ht 5' 8 Wt 74.8 kg (165 lb) BMI 25.09 kg/m Wt Readings from Last 3 Encounters: 07/17/19 74.8 kg (165 lb) 03/13/19 75.3 kg (166 lb) 11/11/18 77.6 kg (171 lb) Physical Exam: General: alert, appears stated age and cooperative Eyes: conjunctivae/corneas clear. PERRL, EOM's intact. Neck: no adenopathy, supple, symmetrical, trachea midline. Thyroid: No thyromegaly appreciated Lung: clear to auscultation bilaterally Heart: regular rate and rhythm, S1, S2 normal, no murmur, click, rub or gallop Extremities: extremities normal, atraumatic, no cyanosis. No edema Feet: Dry skin, Bilateral Feet: normal DP. Monofilament exam Normal , bilateral lower extremities. Neuro: normal without focal findings, mental status, speech normal, alert and oriented x3 and [facility] Lab Review 07/04/2019 Hemoglobin A1c 8.3% Creatinine 1.00 GFR greater than 60 AST 18 ALT 15 PSA 6.1 WBC 8 hemoglobin 13 hematocrit 40 platelets 218 03/03/19 Hemoglobin A1c 8.4% Creatinine 1.0, sodium 138, potassium 4.2, estimated GFR greater than 60 AST 16, ALT 13 Total cholesterol 164, triglycerides 66, HDL 53, LDL 98 WBC 7.5, hemoglobin 14.1, hematocrit 41.7, platelet count 218,000 TSH 0.52, FT4--0.98 Micro 11/creatinine ratio 95 11/02/2018: Hemoglobin A1c 8.4% Creatinine 1.2, BUN 23, GFR greater than 60 AST 17 ALT 18 06/27/18 *labs reviewed 07/17/19 Hgb A1c: 8.2% Creat: 1.0; eGFR: >60 AST: 19; ALT: 17 K: 4.2 CBC: WBC:7.9; Hgb: 14.0; Hct: 42.0; Plt: 213 Tchol: 162; Tri ; HDL: 50 ; LDL: 98 TSH: 0.88; FreeT4: 0.95 Microalbumin/creatinine Ratio: 93 02/18/18 ([facility]) Hgb A1C 7.6% Cr 1.0, EGFR >60, K 4.0 AST 21, ALT 16 PSA 4.58 (nml range 0-6.5) 10/18/17 HgbA1C 8.3% Creat 1.1 K 4.1, eGFR >60 02/05/17 Hgb A1c: 8.4% PSA: 4.66 11/10/16 HgbA1C 8.7% 05/07/16 HgbA1C 9.1% K 4.3 AST 20, ALT 19 TChol 173, TG 77, HDL 50, LDL 108 WBC 7.7, Hgb 14.9, Hct 45.5, Plt 182K TSH 0.48, FT4--1.06 Microalb/creat ratio 38 12/27/15: Hgb A1c: 8.9% PSA: 2.82 04/01/15 Creat: 0.90 AST: 21; ALT: 17 Tchol: 188; Tri ; HDL: 55 ; LDL: 115 TSH: 0.610 Microalbumin/creatinine Ratio: 6.4 Assessment: Dx: 1. Type 1 diabetes mellitus with diabetic polyneuropathy (HCC) Hemoglobin A1c Comprehensive Metabolic Panel 2. Essential hypertension 3. Pure hypercholesterolemia Lipid Panel Type 1 diabetes, under good control Serena Fernandes presents for follow-up of Type 1 diabetes Patient is currently managed with: Humaloginsulin:10 units at breakfast; 10 units at lunch; 13-15 units at supper and Lantus 18 units at bedtime . Most recent Hgb A1c is 8.3% which is relatively unchanged from his previous 8.4%. He reports eating a snack prior to bedtime if his blood sugars greater than 150. He is having hyperglycemia uponawakening in the morning. His blood sugars typically greater than 200 in the morning. 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 Exam within last 12 months: yes Date: 08/2018- patient due next month for updated exam Had bilat cataract extraction Dr. Lopez. Sees Dr. Browne in [place] every year routinely. Nephropathy: Negative Creat: 1.0, eGFR >60 on 07/04/19 ; Mialb/creat ratio:95 on 03/03/19, patient takes quinapril Peripheral Neuropathy: Positive Reports bilateral numbness and tingling in feet intermittently Autonomic Neuropathy: Negative Patient aware of lows. He develops symptoms at 65-70. However, has had some low BG in 40-50 range; may be developing some hypoglycemia unawareness. Discussed importanceof carrying treatment for hypoglycemia at all times.. Patient is not interested in the sensor at this time. Hyperlipidemia: Positive Currently taking: No lipid lowering agents. LFT's WNL. Unable to tolerate statins. 03/03/19: Total cholesterol 164, triglycerides 66, HDL 53, LDL 98. Goal LDL <100, Goal trig <150. Stable. Hypertension: Positive. Currently taking: amlodipine, hydrochlorothiazide (HCTZ) and quinapril . Goal <130/80. BP 152/69 Cardiac: Negative Denies Chest pain or SOB at this time. Vascular: Negative ; has some mild edema. Positive carotid stenosis. Has followed with Dr. Browne. Feet: Negative sores or lesions at this time. Last foot exam: 07/17/19 Thyroid: Negative Other: PSA: 6.16 07/04/19 (<6.60 is WNL) 4.58 on 02/18/18; recheck PSA at follow up. 4.66 02/05/17; (2.82 12/27/15; 04/01/15: 3.18; 04/03/14: 2.78; 03/11: 1.59) Plan: Type 1 diabetes mellitus with diabetic polyneuropathy (HCC) [E10.42] 1. Rx changes: See insulin dose adjustments below Humalog insulin: 11 units at breakfast; 10 units at lunch; 14-15 units at supper Lantus insulin: 18 units at bedtime Increase breakfast insulin, by 1 unit, as he appears to be high at lunchtime pretty routinely. Patient reports if he is going to have a low blood sugars happening prior to dinner, so his lunch dose will stay the same. His blood sugars in the evening prior to bedtime appear to be typically less [id number] and usually less than 180. He was encouraged to stop eating a snack before bedtime as that may be why he is waking up with such a high blood sugar. I explained to him if he still slightly nervousto stop a snack may be eat half for at least a less than what he is doing now to see what his bloodsugar is when he wakes up in the morning. He was reluctant to increase his Lantus insulin as he states if he takes 20 that he will have an episode of low blood sugar in the middle of the night. He isinstructed to call our office should he have any issues or any questions that we can help him work through. 2. Education: Reviewed ABCs of diabetes management (respective goals in parentheses): A1C (7.0-8.0), blood pressure (<130/80), and cholesterol (LDL <100). 3. Compliance at present is estimated to be excellent. Efforts to improve compliance (if necessary)will be directed at dietary modifications: Limit portion sizes, increased exercise and regular blood sugar monitorin times daily. 4. Follow up: 4 months 5. Record blood sugar readings as instructed. Call if BG consistently <70 or >250. [phone] Continue to check blood sugar 4 times daily. Patient has been checking blood glucoses 4 times daily for the past 90 days. Patient needs to continue checking blood glucoses 4 times daily. Blood glucose readings are used to adjust insulin doses for meals, monitor dietary compliance, and adjust for high or low blood glucoses by patient on a daily basis. Blood glucose readings are reviewed at office visits for adjustment in medication regimen and assistance with dietary management, and other self- management issues including exercise, etc. Prognosis: Good. Duration of need for diabetes testing equipment: Permanent #150 strips/month prescribed. 6. Bring blood sugar meter to follow up appointment. Orders Placed This Encounter Procedures Hemoglobin A1c Comprehensive Metabolic Panel Lipid Panel Electronically signed by Keeley BERMAN 07/17/1911:16 AM documented in this encounter* Paty Ortega CNP - 11/16/2019 10:44 AM EST Patient ID: Serena Fernandes is a 73 y.o. male Subjective: HPI: Serena Fernandes presents for follow-up of Type 1 diabetes The initial diagnosis of diabetes was [id number] years ago in 1994. Disease course has been stable. Mr. Fernandes is a 72-year-old male patient who presents the office for a follow-up of his type 1 diabetes. Patient reports he has been feeling fairly well. He reports continuing to have sciatic nerve pain (reports constant ache/trouble standing for long period of time). He reports may be not being quite as active as he usually is because of his discomfort and leg weakness. Patient's mostrecent hemoglobin A1c is 8.4% which is relatively unchanged from his previous. Patient reports thathe does follow a diabetic diet. His weight stable from his last visit with us. Complications from his diabetes includes neuropathy. He denies nephropathy or retinopathy. Pertinent negatives for diabetes include: no chest pain no shortness of breath no polyuria, polydipsia, polyphagia no nausea or vomiting no blurred vision no weight loss no recent hypoglycemia Pertinent positives for diabetes include: none Hypoglycemia symptoms include hunger and sweats, dizziness. Patient does not have hypoglycemic unawareness. He does not usually feel symptoms until about 65. Diabetic complications include diabetic neuropathy Pertinent negatives for diabetic complications include no: diabetic nephropathy and diabetic retinopathy Current diabetic treatment includes insulin injections Self Monitored blood glucose levels Patient has been checking BG QID AC/HS. Breakfast: 71-290 Lunch: 139-280 Supper: 56-233 Bedtime: 96-278 *Blood sugar records were brought with the patient to his appointment today and reviewed. Patient's weight is stable Patient is following a diabetic diet. Meal planning includes avoidance of concentrated sweets. An PASCALE inhibitor/angiotensin II receptor deepali is being taken. Patient does not see a director of gift planning. Eye exam is current. Currently taking: No oral hypoglycemic medications Humalog insulin: 10 units at breakfast; 10 units at lunch; 14-15 units at supper Lantus insulin: 18 units at bedtime Outpatient Medications Marked as Taking for the 11/16/19 encounter (Office Visit) with Paty Ortega CNP: amLODIPine (NORVASC) 10 MG tablet, Take 10 mg by mouth daily. blood sugar diagnostic (CONTOUR NEXT TEST STRIPS) strips, Use as directed 4 times per day. Dx E10.9Patient with type 1 DM on insulin with hypoglycemia. Needs to check BG QID; takes insulin QID . insulin degludec 200 unit/mL (3 mL) InPn, Use as directed qHS (approx 18 units/day) . insulin lispro (HumaLOG KwikPen Insulin) 100 unit/mL InPn, Uses approx. 35 units daily. DX code E 10.65 . Lantus Solostar U-100 Insulin 100 unit/mL (3 mL) InPn, Inject 18 (eighteen) Units under the skin nightly . NOVOFINE 32 32 gauge x 1/4 Ndle, USE DIRECTED FOUR TIMES A DAY FOR INSULIN INJECTION pen needle, diabetic (BD Ultra-Fine Jolynn Pen Needle) 32 gauge x / Ndle, Use as directed 4x daily DX code E10.65 . quinapril-hydrochlorothiazide (ACCURETIC) 20-12.5 mg per tablet, take 1 tablet by ORAL route every day. tamsulosin (FLOMAX) 0.4 mg capsule, Review of Systems: Review of Systems Constitutional: Negative for appetite change, fatigue and unexpected weight change. Eyes: Negative for visual disturbance. Respiratory: Negative for cough and shortness of breath. Cardiovascular: Negative for chest pain and leg swelling. Gastrointestinal: Negative for abdominal pain, constipation, diarrhea, nausea and vomiting. Endocrine: Negative for polydipsia, polyphagia and polyuria. Genitourinary: Negative for frequency and urgency. Musculoskeletal: Positive for back pain. Skin: Negative for wound. Neurological: Positive for numbness. Negative for headaches. Psychiatric/Behavioral: Negative for sleep disturbance. The patient is not nervous/anxious. The following portions of the patient's history were reviewed and updated as appropriate: allergies, current medications, past family history, past medical history, past social history, past surgicalhistory and problem list. Objective: BP (!) 178/68 Pulse 75 Ht 5' 8 Wt 74.8 kg (165 lb) BMI 25.09 kg/m Wt Readings from Last 3 Encounters: 11/16/19 74.8 kg (165 lb) 07/17/19 74.8 kg (165 lb) 03/13/19 75.3 kg (166 lb) Physical Exam: General: alert, appears stated age and cooperative Eyes: conjunctivae/corneas clear. PERRL, EOM's intact. Neck: no adenopathy, supple, symmetrical, trachea midline. Thyroid: No thyromegaly appreciated Lung: clear to auscultation bilaterally Heart: regular rate and rhythm, S1, S2 normal, no murmur, click, rub or gallop Extremities: extremities normal, atraumatic, no cyanosis. No edema Feet: Dry skin, Bilateral Feet: normal DP. Monofilament exam Normal , bilateral lower extremities. Neuro: normal without focal findings, mental status, speech normal, alert and oriented x3 and [facility] Lab Review 11/03/19 *labs reviewed 11/16/19 Hgb A1c: 8.4% Creat: 1.08; eGFR: >60 AST: 14; ALT: 10 K: 3.9 Tchol: 163; Tri ; HDL: 42 ; LDL: 103 07/04/2019 Hemoglobin A1c 8.3% Creatinine 1.00 GFR greater than 60 AST 18 ALT 15 PSA 6.1 WBC 8 hemoglobin 13 hematocrit 40 platelets 218 03/03/19 Hemoglobin A1c 8.4% Creatinine 1.0, sodium 138, potassium 4.2, estimated GFR greater than 60 AST 16, ALT 13 Total cholesterol 164, triglycerides 66, HDL 53, LDL 98 WBC 7.5, hemoglobin 14.1, hematocrit 41.7, platelet count 218,000 TSH 0.52, FT4--0.98 Micro 11/creatinine ratio 95 11/02/2018: Hemoglobin A1c 8.4% Creatinine 1.2, BUN 23, GFR greater than 60 AST 17 ALT 18 06/27/18 Hgb A1c: 8.2% Creat: 1.0; eGFR: >60 AST: 19; ALT: 17 K: 4.2 CBC: WBC:7.9; Hgb: 14.0; Hct: 42.0; Plt: 213 Tchol: 162; Tri ; HDL: 50 ; LDL: 98 TSH: 0.88; FreeT4: 0.95 Microalbumin/creatinine Ratio: 93 02/18/18 ([facility]) Hgb A1C 7.6% Cr 1.0, EGFR >60, K 4.0 AST 21, ALT 16 PSA 4.58 (nml range 0-6.5) 10/18/17 HgbA1C 8.3% Creat 1.1 K 4.1, eGFR >60 02/05/17 Hgb A1c: 8.4% PSA: 4.66 11/10/16 HgbA1C 8.7% 05/07/16 HgbA1C 9.1% K 4.3 AST 20, ALT 19 TChol 173, TG 77, HDL 50, LDL 108 WBC 7.7, Hgb 14.9, Hct 45.5, Plt 182K TSH 0.48, FT4--1.06 Microalb/creat ratio 38 12/27/15: Hgb A1c: 8.9% PSA: 2.82 04/01/15 Creat: 0.90 AST: 21; ALT: 17 Tchol: 188; Tri ; HDL: 55 ; LDL: 115 TSH: 0.610 Microalbumin/creatinine Ratio: 6.4 Assessment: Dx: 1. Type I diabetes mellitus with neurological manifestations, uncontrolled (HCC) 2. Type 1 diabetes mellitus with diabetic polyneuropathy (HCC) 3. Pure hypercholesterolemia Type 1 diabetes, under good control Serena Fernandes presents for follow-up of Type 1 diabetes Patient is currently managed with: Humaloginsulin:10 units at breakfast; 10 units at lunch; 13-15 units at supper and Lantus 18 units at bedtime . Most recent Hgb A1c is 8.3% which is relatively unchanged from his previous 8.4%. Reports occasional lows during the day. Only one episode of hypoglycemia at night (4am) in the last 3 months. Has noticed that lantus is less stable than levemir which he previously took. Typically eats a snack if BG <150 at HS. 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 Exam within last 12 months: yes Date: 08/2018- patient due next month for updated exam Had bilat cataract extraction Dr. Lopez. Sees Dr. Browne in [place] every year routinely. Nephropathy: Negative Creat: 1.08; eGFR: >60 11/03/19 ; Mialb/creat ratio:95 on 03/03/19, patient takes quinapril Peripheral Neuropathy: Positive Reports bilateral numbness and tingling in feet intermittently Autonomic Neuropathy: Negative Patient aware of lows. He develops symptoms at 65-70. However, has had some low BG in 40-50 range; may be developing some hypoglycemia unawareness. Discussed importanceof carrying treatment for hypoglycemia at all times.. Patient is not interested in the sensor at this time. Hyperlipidemia: Positive Currently taking: No lipid lowering agents. LFT's WNL. Unable to tolerate statins. 03/03/19: Total cholesterol 164, triglycerides 66, HDL 53, LDL 98. Goal LDL <100, Goal trig <150. Stable. Hypertension: Positive. Currently taking: amlodipine, hydrochlorothiazide (HCTZ) and quinapril . Goal <130/80. BP 152/69 Cardiac: Negative Denies Chest pain or SOB at this time. Vascular: Negative ; has some mild edema. Positive carotid stenosis. Has followed with Dr. Browne. Feet: Negative sores or lesions at this time. Last foot exam: 11/16/19 Thyroid: Negative Other: PSA: 6.16 07/04/19 (<6.60 is WNL) 4.58 on 02/18/18; recheck PSA at follow up. 4.66 02/05/17; (2.82 12/27/15; 04/01/15: 3.18; 04/03/14: 2.78; 03/11: 1.59) Plan: Type I diabetes mellitus with neurological manifestations, uncontrolled (HCC) [E10.49, E10.65] 1. Rx changes: See insulin dose adjustments below Humalog insulin: 10 units at breakfast; 10 units at lunch; 14-15 units at supper Lantus insulin: 18 units at bedtime His blood sugars in the evening prior to bedtime appear to be typically less than 200 and usually less than 180. He was reluctant to increase his Lantus insulin as he states if he takes 20 that he will have an episode of low blood sugar in the middle of the night. He is instructed to call our office should he have any issues or any questions that we can help him work through. 2. Education: Reviewed ABCs of diabetes management (respective goals in parentheses): A1C (7.0-8.0), blood pressure (<130/80), and cholesterol (LDL <100). 3. Compliance at present is estimated to be excellent. Efforts to improve compliance (if necessary)will be directed at dietary modifications: Limit portion sizes, increased exercise and regular blood sugar monitorin times daily. 4. Follow up: 4 months 5. Record blood sugar readings as instructed. Call if BG consistently <70 or >250. [phone] Continue to check blood sugar 4 times daily. Patient has been checking blood glucoses 4 times daily for the past 90 days. Patient needs to continue checking blood glucoses 4 times daily. Blood glucose readings are used to adjust insulin doses for meals, monitor dietary compliance, and adjust for high or low blood glucoses by patient on a daily basis. Blood glucose readings are reviewed at office visits for adjustment in medication regimen and assistance with dietary management, and other self- management issues including exercise, etc. Prognosis: Good. Duration of need for diabetes testing equipment: Permanent #150 strips/month prescribed. 6. Bring blood sugar meter to follow up appointment. Orders Placed This Encounter Procedures Comprehensive Metabolic Panel Hemoglobin A1c Electronically Signed by: Paty Ortega CNP 11/16/19 10:55 AM documented in this encounter* Paty Ortega CNP - 06/18/2020 10:04 AM EDT Patient ID: Serena Fernandes is a 74 y.o. male Subjective: HPI: Serena Fernandes presents for follow-up of Type 1 diabetes The initial diagnosis of diabetes was made25 years ago in 1994. Disease course has been stable. Mr. Fernandes is a 74-year-old male patient who presents the office for a follow-up of his type 1 diabetes. Patient reports he has been feeling fairly well. He reports continuing to have sciatic nerve pain (reports constant ache/trouble standing for long period of time). He reports may be not being quite as active as he usually is because of his discomfort and leg weakness. Patient's mostrecent hemoglobin A1c is 8.1% which is relatively unchanged from his previous. Patient reports thathe does follow a diabetic diet. His weight stable from his last visit with us. Complications from his diabetes includes neuropathy. He denies nephropathy or retinopathy. Pertinent negatives for diabetes include: no chest pain no shortness of breath no polyuria, polydipsia, polyphagia no nausea or vomiting no blurred vision no weight loss no recent hypoglycemia Pertinent positives for diabetes include: none Hypoglycemia symptoms include hunger and sweats, dizziness. Patient does not have hypoglycemic unawareness. He does not usually feel symptoms until about 65. Diabetic complications include diabetic neuropathy Pertinent negatives for diabetic complications include no: diabetic nephropathy and diabetic retinopathy Current diabetic treatment includes insulin injections Self Monitored blood glucose levels Patient has been checking BG QID AC/HS. Breakfast: 71-290 Lunch: 139-280 Supper: 56-233 Bedtime: 96-278 *Blood sugar records were brought with the patient to his appointment today and reviewed. Patient's weight is stable Patient is following a diabetic diet. Meal planning includes avoidance of concentrated sweets. An PASCALE inhibitor/angiotensin II receptor deepali is being taken. Patient does not see a director of gift planning. Eye exam is current. Currently taking: No oral hypoglycemic medications Humalog insulin: 10 units at breakfast; 10 units at lunch; 14-15 units at supper Lantus insulin: 18 units at bedtime Outpatient Medications Marked as Taking for the 06/18/20 encounter (Office Visit) with Paty Ortega CNP: amLODIPine (NORVASC) 10 MG tablet, Take 10 mg by mouth daily. blood sugar diagnostic (Contour Next Test Strips) strips, Use as directed 4 times per day. Dx E10.9Patient with type 1 DM on insulin with hypoglycemia. Needs to check BG QID; takes insulin QID . insulin degludec 200 unit/mL (3 mL) InPn, Use as directed qHS (approx 18 units/day) . insulin lispro (HumaLOG KwikPen Insulin) 100 unit/mL InPn, Uses approx. 35 units daily. DX code E 10.65 . Lantus Solostar U-100 Insulin 100 unit/mL (3 mL) InPn, Inject 18 (eighteen) Units under the skin nightly . NOVOFINE 32 32 gauge x 1/4 Ndle, USE DIRECTED FOUR TIMES A DAY FOR INSULIN INJECTION pen needle, diabetic (BD Ultra-Fine Jolynn Pen Needle) 32 gauge x 5/32 Ndle, Use as directed 4x daily DX code E10.65 . quinapril-hydrochlorothiazide (ACCURETIC) 20-12.5 mg per tablet, take 1 tablet by ORAL route every day. tamsulosin (FLOMAX) 0.4 mg capsule, Review of Systems: Review of Systems Constitutional: Negative for appetite change, fatigue and unexpected weight change. Eyes: Negative for visual disturbance. Respiratory: Negative for cough and shortness of breath. Cardiovascular: Negative for chest pain and leg swelling. Gastrointestinal: Negative for abdominal pain, constipation, diarrhea, nausea and vomiting. Endocrine: Negative for polydipsia, polyphagia and polyuria. Genitourinary: Negative for frequency and urgency. Musculoskeletal: Positive for back pain. Skin: Negative for wound. Neurological: Positive for numbness. Negative for headaches. Psychiatric/Behavioral: Negative for sleep disturbance. The patient is not nervous/anxious. The following portions of the patient's history were reviewed and updated as appropriate: allergies, current medications, past family history, past medical history, past social history, past surgicalhistory and problem list. Objective: Ht 5' 8 Wt 75.8 kg (167 lb) BMI 25.39 kg/m Wt Readings from Last 3 Encounters: 06/18/20 75.8 kg (167 lb) 11/16/19 74.8 kg (165 lb) 07/17/19 74.8 kg (165 lb) Physical Exam: General: alert, appears stated age and cooperative Eyes: conjunctivae/corneas clear. PERRL, EOM's intact. Neck: no adenopathy, supple, symmetrical, trachea midline. Thyroid: No thyromegaly appreciated Lung: clear to auscultation bilaterally Heart: regular rate and rhythm, S1, S2 normal, no murmur, click, rub or gallop Extremities: extremities normal, atraumatic, no cyanosis. No edema Feet: Dry skin, Bilateral Feet: normal DP. Monofilament exam Normal , bilateral lower extremities. Neuro: normal without focal findings, mental status, speech normal, alert and oriented x3 and [facility] Lab Review 06/10/20 *labs reviewed 06/18/20 Hgb A1c: 8.1% Creat: 1.01; eGFR: >60 AST: 16; ALT: 12 K: 4.0 CBC: WBC:8.20; Hgb: 14.1; Hct: 42.3; Plt: 216 TSH: 0.68 ; FreeT4: 0.97 03/11/2020 Hgb A1c: 7.5% Creat: 1.07; eGFR: >60 AST: 16; ALT: 13 K: 3.9 11/03/19 Hgb A1c: 8.4% Creat: 1.08; eGFR: >60 AST: 14; ALT: 10 K: 3.9 Tchol: 163; Tri ; HDL: 42 ; LDL: 103 07/04/2019 Hemoglobin A1c 8.3% Creatinine 1.00 GFR greater than 60 AST 18 ALT 15 PSA 6.1 WBC 8 hemoglobin 13 hematocrit 40 platelets 218 03/03/19 Hemoglobin A1c 8.4% Creatinine 1.0, sodium 138, potassium 4.2, estimated GFR greater than 60 AST 16, ALT 13 Total cholesterol 164, triglycerides 66, HDL 53, LDL 98 WBC 7.5, hemoglobin 14.1, hematocrit 41.7, platelet count 218,000 TSH 0.52, FT4--0.98 Micro 11/creatinine ratio 95 11/02/2018: Hemoglobin A1c 8.4% Creatinine 1.2, BUN 23, GFR greater than 60 AST 17 ALT 18 06/27/18 Hgb A1c: 8.2% Creat: 1.0; eGFR: >60 AST: 19; ALT: 17 K: 4.2 CBC: WBC:7.9; Hgb: 14.0; Hct: 42.0; Plt: 213 Tchol: 162; Tri ; HDL: 50 ; LDL: 98 TSH: 0.88; FreeT4: 0.95 Microalbumin/creatinine Ratio: 93 02/18/18 ([facility]) Hgb A1C 7.6% Cr 1.0, EGFR >60, K 4.0 AST 21, ALT 16 PSA 4.58 (nml range 0-6.5) 10/18/17 HgbA1C 8.3% Creat 1.1 K 4.1, eGFR >60 Assessment: Dx: 1. Type 1 diabetes mellitus with diabetic polyneuropathy (HCC) 2. 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) 3. Essential hypertension 4. Pure hypercholesterolemia Type 1 diabetes, under good control Serena Perryre presents for follow-up of Type 1 diabetes Patient is currently managed with: Humaloginsulin:10 units at breakfast; 10 units at lunch; 13-15 units at supper and Lantus 18 units at bedtime . Most recent Hgb A1c is 8.1% which is slightly increased from 7.5%. Reports occasional lows during the day. Only one episode of hypoglycemia at night (4am) in the last 3 months. Has noticed that lantus is less stable than levemir which he previously took. Typically eats a snack if BG <150 atHS. 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 Exam within last 12 months: yes Date: 09/2019- patient due September 2020for updated exam Had bilat cataract extraction Dr. Lopez. Sees Dr. Browne in [place] every yearroutinely. Nephropathy: Negative Creat: 1.01; eGFR: >60 06/10/20 ; Mialb/creat ratio:95 on 03/03/19, patient takes quinapril Peripheral Neuropathy: Positive Reports bilateral numbness and tingling in feet intermittently Autonomic Neuropathy: Negative Patient aware of lows. He develops symptoms at 65-70. However, has had some low BG in 40-50 range; may be developing some hypoglycemia unawareness. Discussed importanceof carrying treatment for hypoglycemia at all times.. Patient is not interested in the sensor at this time. Hyperlipidemia: Positive Currently taking: No lipid lowering agents. LFT's WNL. Unable to tolerate statins. 03/03/19: Total cholesterol 164, triglycerides 66, HDL 53, LDL 98. Goal LDL <100, Goal trig <150. Stable. Hypertension: Positive. Currently taking: amlodipine, hydrochlorothiazide (HCTZ) and quinapril . Goal <130/80. BP: (!) 172/71 Reports always high in the doctors office . Took BP meds 1 hour before check of BP. Recheck: 154/80. Cardiac: Negative Denies Chest pain or SOB at this time. Vascular: Negative ; has some mild edema. Positive carotid stenosis. Has followed with Dr. Browne. Feet: Negative sores or lesions at this time. Last foot exam: 06/18/20 Thyroid: Negative TSH: 0.68; Free T4: 0.97 06/10/20 Other: PSA: 6.16 07/04/19 (<6.60 is WNL) 4.58 on 02/18/18; recheck PSA at follow up. 4.66 02/05/17; (2.82 12/27/15; 04/01/15: 3.18; 04/03/14: 2.78; 03/11: 1.59) Plan: Type 1 diabetes mellitus with diabetic polyneuropathy (HCC) [E10.42] 1. Rx changes: See insulin dose adjustments below Humalog insulin: 10 units at breakfast; 10 units at lunch; 14-15 units at supper Lantus insulin: 18 units at bedtime His blood sugars in the evening prior to bedtime appear to be typically less than 200 and usually less than 180. He was reluctant to increase his Lantus insulin as he states if he takes 20 that he will have an episode of low blood sugar in the middle of the night. He is instructed to call our office should he have any issues or any questions that we can help him work through. 2. Education: Reviewed ABCs of diabetes management (respective goals in parentheses): A1C (7.0-8.0), blood pressure (<130/80), and cholesterol (LDL <100). 3. Compliance at present is estimated to be excellent. Efforts to improve compliance (if necessary)will be directed at dietary modifications: Limit portion sizes, increased exercise and regular blood sugar monitorin times daily. 4. Follow up: 4 months 5. Record blood sugar readings as instructed. Call if BG consistently <70 or >250. [phone] Continue to check blood sugar 4 times daily. Patient has been checking blood glucoses 4 times daily for the past 90 days. Patient needs to continue checking blood glucoses 4 times daily. Blood glucose readings are used to adjust insulin doses for meals, monitor dietary compliance, and adjust for high or low blood glucoses by patient on a daily basis. Blood glucose readings are reviewed at office visits for adjustment in medication regimen and assistance with dietary management, and other self- management issues including exercise, etc. Prognosis: Good. Duration of need for diabetes testing equipment: Permanent #150 strips/month prescribed. 6. Bring blood sugar meter to follow up appointment. Orders Placed This Encounter Procedures Comprehensive Metabolic Panel Hemoglobin A1c Lipid Panel Microalbumin/Creatinine Ratio, UR Random Electronically Signed by: Paty Ortega CNP 06/18/20 10:55 AM documented in this encounter* Paty Ortega CNP - 10/18/2020 1:45 PM EST Patient ID: Serena Fernandes is a 74 y.o. male Subjective: HPI: Serena Fernandes presents for follow-up of Type 1 diabetes The initial diagnosis of diabetes was made25 years ago in 1994. Disease course has been stable. Mr. Fernandes is a 74-year-old male patient who presents the office for a follow-up of his type 1 diabetes. Patient reports he has been feeling fairly well. He reports continuing to have sciatic nerve pain (reports constant ache/trouble standing for long period of time). He reports may be not being quite as active as he usually is because of his discomfort and leg weakness. Patient's mostrecent hemoglobin A1c is 8.3% which is relatively unchanged from his previous. Patient reports thathe does follow a diabetic diet. His weight stable from his last visit with us. Complications from his diabetes includes neuropathy. He denies nephropathy or retinopathy. Pertinent negatives for diabetes include: no chest pain no shortness of breath no polyuria, polydipsia, polyphagia no nausea or vomiting no blurred vision no weight loss no recent hypoglycemia Pertinent positives for diabetes include: none Hypoglycemia symptoms include hunger and sweats, dizziness. Patient does not have hypoglycemic unawareness. He does not usually feel symptoms until about 65. Diabetic complications include diabetic neuropathy Pertinent negatives for diabetic complications include no: diabetic nephropathy and diabetic retinopathy Current diabetic treatment includes insulin injections Self Monitored blood glucose levels Patient has been checking BG QID AC/HS. Breakfast: 71-290 Lunch: 139-280 Supper: 56-233 Bedtime: 96-278 *Blood sugar records were brought with the patient to his appointment today and reviewed. Patient's weight is stable Patient is following a diabetic diet. Meal planning includes avoidance of concentrated sweets. An PASCALE inhibitor/angiotensin II receptor deepali is being taken. Patient does not see a director of gift planning. Eye exam is current. Currently taking: No oral hypoglycemic medications Humalog insulin: 10 units at breakfast; 10 units at lunch; 14-15 units at supper Lantus insulin: 18 units at bedtime Outpatient Medications Marked as Taking for the 10/18/20 encounter (Office Visit) with Paty Ortega CNP: amLODIPine (NORVASC) 10 MG tablet, Take 10 mg by mouth daily. insulin lispro (HumaLOG KwikPen Insulin) 100 unit/mL InPn, Uses approx. 35 units daily. DX code E 10.65 . Lantus Solostar U-100 Insulin 100 unit/mL (3 mL) InPn, Inject 18 (eighteen) Units under the skin nightly . tamsulosin (FLOMAX) 0.4 mg capsule, Review of Systems: Review of Systems Constitutional: Negative for appetite change, fatigue and unexpected weight change. Eyes: Negative for visual disturbance. Respiratory: Negative for cough and shortness of breath. Cardiovascular: Negative for chest pain and leg swelling. Gastrointestinal: Negative for abdominal pain, constipation, diarrhea, nausea and vomiting. Endocrine: Negative for polydipsia, polyphagia and polyuria. Genitourinary: Negative for frequency and urgency. Musculoskeletal: Positive for back pain. Skin: Negative for wound. Neurological: Positive for numbness. Negative for headaches. Psychiatric/Behavioral: Negative for sleep disturbance. The patient is not nervous/anxious. The following portions of the patient's history were reviewed and updated as appropriate: allergies, current medications, past family history, past medical history, past social history, past surgicalhistory and problem list. Objective: BP (!) 163/69 Pulse 72 Ht 5' 8 Wt 76.2 kg (168 lb) BMI 25.54 kg/m Wt Readings from Last 3 Encounters: 10/18/20 76.2 kg (168 lb) 06/18/20 75.8 kg (167 lb) 11/16/19 74.8 kg (165 lb) Physical Exam: General: alert, appears stated age and cooperative Eyes: conjunctivae/corneas clear. PERRL, EOM's intact. Neck: no adenopathy, supple, symmetrical, trachea midline. Thyroid: No thyromegaly appreciated Lung: clear to auscultation bilaterally Heart: regular rate and rhythm, S1, S2 normal, no murmur, click, rub or gallop Extremities: extremities normal, atraumatic, no cyanosis. No edema Feet: Dry skin, Bilateral Feet: normal DP. Monofilament exam Normal , bilateral lower extremities. Neuro: normal without focal findings, mental status, speech normal, alert and oriented x3 and [facility] Lab Review 10/03/20 *labs reviewed 10/18/20 Hgb A1c: 8.3% Creat: 1.04; eGFR: >60 AST: 14; ALT: 10 K: 3.8 Tchol: 160; Tri ; HDL: 44 ; LDL: 91 06/10/20 Hgb A1c: 8.1% Creat: 1.01; eGFR: >60 AST: 16; ALT: 12 K: 4.0 CBC: WBC:8.20; Hgb: 14.1; Hct: 42.3; Plt: 216 TSH: 0.68 ; FreeT4: 0.97 03/11/2020 Hgb A1c: 7.5% Creat: 1.07; eGFR: >60 AST: 16; ALT: 13 K: 3.9 11/03/19 Hgb A1c: 8.4% Creat: 1.08; eGFR: >60 AST: 14; ALT: 10 K: 3.9 Tchol: 163; Tri ; HDL: 42 ; LDL: 103 07/04/2019 Hemoglobin A1c 8.3% Creatinine 1.00 GFR greater than 60 AST 18 ALT 15 PSA 6.1 WBC 8 hemoglobin 13 hematocrit 40 platelets 218 03/03/19 Hemoglobin A1c 8.4% Creatinine 1.0, sodium 138, potassium 4.2, estimated GFR greater than 60 AST 16, ALT 13 Total cholesterol 164, triglycerides 66, HDL 53, LDL 98 WBC 7.5, hemoglobin 14.1, hematocrit 41.7, platelet count 218,000 TSH 0.52, FT4--0.98 Micro 11/creatinine ratio 95 11/02/2018: Hemoglobin A1c 8.4% Creatinine 1.2, BUN 23, GFR greater than 60 AST 17 ALT 18 06/27/18 Hgb A1c: 8.2% Creat: 1.0; eGFR: >60 AST: 19; ALT: 17 K: 4.2 CBC: WBC:7.9; Hgb: 14.0; Hct: 42.0; Plt: 213 Tchol: 162; Tri ; HDL: 50 ; LDL: 98 TSH: 0.88; FreeT4: 0.95 Microalbumin/creatinine Ratio: 93 02/18/18 ([facility]) Hgb A1C 7.6% Cr 1.0, EGFR >60, K 4.0 AST 21, ALT 16 PSA 4.58 (nml range 0-6.5) 10/18/17 HgbA1C 8.3% Creat 1.1 K 4.1, eGFR >60 Assessment: Dx: 1. Type 1 diabetes mellitus with diabetic polyneuropathy (HCC) 2. 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) 3. Essential hypertension 4. Pure hypercholesterolemia Type 1 diabetes, under good control Serena Fernandes presents for follow-up of Type 1 diabetes Patient is currently managed with: Humaloginsulin:10 units at breakfast; 10 units at lunch; 13-15 units at supper and Lantus 18 units at bedtime . Most recent Hgb A1c is 8.1% which is slightly increased from 7.5%. Reports occasional lows during the day. Only one episode of hypoglycemia at night (4am) in the last 3 months. Has noticed that lantus is less stable than levemir which he previously took. Typically eats a snack if BG <150 atHS. 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 Exam within last 12 months: yes Date: 10/16/20. Had bilat cataract extraction Dr. Lopez. Sees Dr. Browne in [place] every year routinely. Nephropathy: Negative Creat: 1.01; eGFR: >60 06/10/20 ; Mialb/creat ratio:95 on 03/03/19, patient takes quinapril Peripheral Neuropathy: Positive Reports bilateral numbness and tingling in feet intermittently Autonomic Neuropathy: Negative Patient aware of lows. He develops symptoms at 65-70. However, has had some low BG in 40-50 range; may be developing some hypoglycemia unawareness. Discussed importanceof carrying treatment for hypoglycemia at all times.. Patient is not interested in the sensor at this time. Hyperlipidemia: Positive Currently taking: No lipid lowering agents. LFT's WNL. Unable to tolerate statins. 03/03/19: Total cholesterol 164, triglycerides 66, HDL 53, LDL 98. Goal LDL <100, Goal trig <150. Stable. Hypertension: Positive. Currently taking: amlodipine, hydrochlorothiazide (HCTZ) and quinapril . Goal <130/80. BP: (!) 163/69 Reports always high in the doctors office . Cardiac: Negative Denies Chest pain or SOB at this time. Vascular: Negative ; has some mild edema. Positive carotid stenosis. Has followed with Dr. Browne. Feet: Negative sores or lesions at this time. Last foot exam: 10/18/20 Thyroid: Negative TSH: 0.68; Free T4: 0.97 06/10/20 Other: PSA: 6.16 07/04/19 (<6.60 is WNL) 4.58 on 02/18/18; recheck PSA at follow up. 4.66 02/05/17; (2.82 12/27/15; 04/01/15: 3.18; 04/03/14: 2.78; 03/11: 1.59) Plan: Type 1 diabetes mellitus with diabetic polyneuropathy (HCC) [E10.42] 1. Rx changes: See insulin dose adjustments below Humalog insulin: 10 units at breakfast; 10 units at lunch; 14-15 units at supper Lantus insulin: 18 units at bedtime His blood sugars in the evening prior to bedtime appear to be typically less than 200 and usually less than 180. He was reluctant to increase his Lantus insulin as he states if he takes 20 that he will have an episode of low blood sugar in the middle of the night. He is instructed to call our office should he have any issues or any questions that we can help him work through. 2. Education: Reviewed ABCs of diabetes management (respective goals in parentheses): A1C (7.0-8.0), blood pressure (<130/80), and cholesterol (LDL <100). 3. Compliance at present is estimated to be excellent. Efforts to improve compliance (if necessary)will be directed at dietary modifications: Limit portion sizes, increased exercise and regular blood sugar monitorin times daily. 4. Follow up: 4 months 5. Record blood sugar readings as instructed. Call if BG consistently <70 or >250. [phone] Continue to check blood sugar 4 times daily. Patient has been checking blood glucoses 4 times daily for the past 90 days. Patient needs to continue checking blood glucoses 4 times daily. Blood glucose readings are used to adjust insulin doses for meals, monitor dietary compliance, and adjust for high or low blood glucoses by patient on a daily basis. Blood glucose readings are reviewed at office visits for adjustment in medication regimen and assistance with dietary management, and other self- management issues including exercise, etc. Prognosis: Good. Duration of need for diabetes testing equipment: Permanent #150 strips/month prescribed. 6. Bring blood sugar meter to follow up appointment. Orders Placed This Encounter Procedures Comprehensive Metabolic Panel Hemoglobin A1c T4, Free TSH Electronically Signed by: Paty Ortega CNP 10/18/20 10:55 AM documented in this encounter* Mary Yan MD - 03/13/2019 12:23 PM EDT Patient ID: Serena Fernandes is a 73 y.o. male Subjective: HPI: Serena Fernandes presents for follow-up of Type 1 diabetes The initial diagnosis of diabetes was egqi58-35 years ago in 1994. Disease course has been stable. Mr. Fernandes is a 72-year-old male patient who presents the office for a follow-up of his type 1 diabetes. Patient reports he has been feeling fairly well however he has been having issues with back and leg pain. He reports having sciatic nerve pain and has continued with physical therapy. Pertinent negatives for diabetes include: no chest pain no shortness of breath no polyuria, polydipsia, polyphagia no nausea or vomiting no blurred vision no weight loss no recent hypoglycemia Pertinent positives for diabetes include: none Hypoglycemia symptoms include hunger and sweats, dizziness. Patient does not to have hypoglycemic unawareness. He does not usually feel symptoms until about 65. Diabetic complications include diabetic neuropathy Pertinent negatives for diabetic complications include no: diabetic nephropathy and diabetic retinopathy Current diabetic treatment includes insulin injections Self Monitored blood glucose levels Patient has been checking BG QID AC/HS. Breakfast: 169-318 Lunch: 76-245 Supper: 76-To 98 Bedtime: 64-235 *Blood sugar records were brought with the patient to his appointment today and reviewed. Patient's weight has decreased 5 lbs. Patient is following a diabetic diet. Meal planning includes avoidance of concentrated sweets. An PASCALE inhibitor/angiotensin II receptor deepali is being taken. Patient does not see a director of gift planning. Eye exam is current. Currently taking: No oral hypoglycemic medications Humalog insulin: 10 units at breakfast; 10 units at lunch; 14-15 units at supper Lantus insulin: 18 units at bedtime Current Outpatient Medications Medication Sig Dispense Refill amLODIPine (NORVASC) 10 MG tablet Take 10 mg by mouth daily. blood sugar diagnostic (CONTOUR NEXT TEST STRIPS) strips Use as directed 4 times per day. Dx E10.9 Patient with type 1 DM on insulin with hypoglycemia. Needs to check BG QID; takes insulin QID . 150 each 11 insulin lispro (HumaLOG KwikPen Insulin) 100 unit/mL InPn Uses approx. 35 units daily. DX code E 10.65 . 5 pen 11 LANTUS SOLOSTAR U-100 INSULIN 100 unit/mL (3 mL) InPn Inject 20 (twenty) Units under the skin nightly . 5 pen 3 NOVOFINE 32 32 gauge x 1/4 Ndle USE DIRECTED FOUR TIMES A DAY FOR INSULIN INJECTION 400 each 3 quinapril-hydrochlorothiazide (ACCURETIC) 20-12.5 mg per tablet take 1 tablet by ORAL route every day. tamsulosin (FLOMAX) 0.4 mg capsule insulin degludec 200 unit/mL (3 mL) InPn Use as directed qHS (approx 18 units/day) . 9 mL 3 No current facility-administered medications for this visit. Review of Systems: Review of Systems Constitutional: Negative for appetite change, fatigue and unexpected weight change. Eyes: Negative for visual disturbance. Respiratory: Negative for cough and shortness of breath. Cardiovascular: Negative for chest pain and leg swelling. Gastrointestinal: Negative for abdominal pain, constipation, diarrhea, nausea and vomiting. Endocrine: Negative for polydipsia, polyphagia and polyuria. Genitourinary: Negative for frequency and urgency. Skin: Negative for wound. Neurological: Negative for numbness and headaches. Psychiatric/Behavioral: Negative for sleep disturbance. The patient is not nervous/anxious. The following portions of the patient's history were reviewed and updated as appropriate: allergies, current medications, past family history, past medical history, past social history, past surgicalhistory and problem list. Objective: BP (!) 160/67 Pulse 72 Ht 5' 8 Wt 75.3 kg (166 lb) BMI 25.24 kg/m Wt Readings from Last 3 Encounters: 03/13/19 75.3 kg (166 lb) 11/11/18 77.6 kg (171 lb) 07/05/18 76 kg (167 lb 9.6 oz) Physical Exam: General: alert, appears stated age and cooperative Eyes: conjunctivae/corneas clear. PERRL, EOM's intact. Neck: no adenopathy, supple, symmetrical, trachea midline. Thyroid: No thyromegaly appreciated Lung: clear to auscultation bilaterally Heart: regular rate and rhythm, S1, S2 normal, no murmur, click, rub or gallop Extremities: extremities normal, atraumatic, no cyanosis. No edema Feet: Dry skin, Bilateral Feet: normal DP. Monofilament exam Normal , bilateral lower extremities. Neuro: normal without focal findings, mental status, speech normal, alert and oriented x3 and [facility] Lab Review 03/03/19 Hemoglobin A1c 8.4% Creatinine 1.0, sodium 138, potassium 4.2, estimated GFR greater than 60 AST 16, ALT 13 Total cholesterol 164, triglycerides 66, HDL 53, LDL 98 WBC 7.5, hemoglobin 14.1, hematocrit 41.7, platelet count 218,000 TSH 0.52, FT4--0.98 Micro 11/creatinine ratio 95 11/02/2018: Hemoglobin A1c 8.4% Creatinine 1.2, BUN 23, GFR greater than 60 AST 17 ALT 18 06/27/18 *labs reviewed 03/13/19 Hgb A1c: 8.2% Creat: 1.0; eGFR: >60 AST: 19; ALT: 17 K: 4.2 CBC: WBC:7.9; Hgb: 14.0; Hct: 42.0; Plt: 213 Tchol: 162; Tri ; HDL: 50 ; LDL: 98 TSH: 0.88; FreeT4: 0.95 Microalbumin/creatinine Ratio: 93 02/18/18 ([facility]) Hgb A1C 7.6% Cr 1.0, EGFR >60, K 4.0 AST 21, ALT 16 PSA 4.58 (nml range 0-6.5) 10/18/17 HgbA1C 8.3% Creat 1.1 K 4.1, eGFR >60 02/05/17 Hgb A1c: 8.4% PSA: 4.66 11/10/16 HgbA1C 8.7% 05/07/16 HgbA1C 9.1% K 4.3 AST 20, ALT 19 TChol 173, TG 77, HDL 50, LDL 108 WBC 7.7, Hgb 14.9, Hct 45.5, Plt 182K TSH 0.48, FT4--1.06 Microalb/creat ratio 38 12/27/15: Hgb A1c: 8.9% PSA: 2.82 04/01/15 Creat: 0.90 AST: 21; ALT: 17 Tchol: 188; Tri ; HDL: 55 ; LDL: 115 TSH: 0.610 Microalbumin/creatinine Ratio: 6.4 Assessment: Dx: SNOMED CT(R) 1. 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 Pure hypercholesterolemia PURE HYPERCHOLESTEROLEMIA 3. Essential hypertension ESSENTIAL HYPERTENSION 4. 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) TYPE 1 DIABETES MELLITUS blood sugar diagnostic (CONTOUR NEXT TEST STRIPS) strips 5. Prostate cancer screening PATIENT ENCOUNTER STATUS PSA, Screen Type 1 diabetes, under good control Serena Ariela Fernandes presents for follow-up of Type 1 diabetes Patient is currently managed with: Humaloginsulin:10 units at breakfast; 10 units at lunch; 14-15 units at supper and Lantus 18 units at bedtime . Most recent Hgb A1c is 8.4%. He has had some difficulty adjusting to Lantus; his insurance formulary required the change from Levemir to Lantus. He does report he gets a little bit concerned about having low blood sugars as he does not recognize a low until he is about 63. He does have symptoms of low blood sugar though. PLAN: CPM. Consider change to Tresiba if insurance will cover; would continue same dose of 18 unitsnightly. 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 Exam within last 12 months: yes Date: 08/2018 . Had bilat cataract extraction Dr. Lopez. Sees Dr. Browne in [place] every year routinely. Nephropathy: Negative Creat: 1.0, eGFR >60 on 03/03/19; Mialb/creat ratio:95 on 03/03/19, patient takes quinapril Peripheral Neuropathy: Positive Reports bilateral numbness and tingling in feet intermittently Autonomic Neuropathy: Negative Patient aware of lows. He develops symptoms at 65-70. However, has had some low BG in 40-50 range; may be developing some hypoglycemia unawareness. Discussed importanceof carrying glucose tablets with him at all times. Patient is not interested in the sensor at this time. Hyperlipidemia: Positive Currently taking: No lipid lowering agents. LFT's WNL. Unable to tolerate statins. 03/03/19:Total cholesterol 164, triglycerides 66, HDL 53, LDL 98. Goal LDL <100, Goal trig<150. Stable. Hypertension: Positive. Currently taking: amlodipine, hydrochlorothiazide (HCTZ) and quinapril . Goal <130/80. BP 160/67.May need increase in medication. Cardiac: Negative Denies Chest pain or SOB at this time. Vascular: Negative ; has some mild edema. Positive carotid stenosis. Has followed with Dr. Browne. Feet: Negative sores or lesions at this time. Last foot exam: 03/13/19 Thyroid: Negative Other: PSA: 4.58 on 02/18/18; recheck PSA at follow up. 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 Rx changes: See insulin dose adjustments below Humalog insulin: 11 units at breakfast; 10 units at lunch; 14-15 units at supper Lantus insulin: 18 units at bedtime . Prescription for Tresiba given to patient; if his insurance will cover, he can start 18 units nightly, which may be more stable for him than Lantus. 2. Education: Reviewed ABCs of diabetes management (respective goals in parentheses): A1C (7.0-8.0), blood pressure (<130/80), and cholesterol (LDL <100). 3. Compliance at present is estimated to be excellent. Efforts to improve compliance (if necessary)will be directed at dietary modifications: Limit portion sizes, increased exercise and regular blood sugar monitorin times daily. 4. Follow up: 4 months 5. Record blood sugar readings as instructed. Call if BG consistently <70 or >250. [phone] Continue to check blood sugar 4 times daily. Patient has been checking blood glucoses 4 times daily for the past 90 days. Patient needs to continue checking blood glucoses 4 times daily. Blood glucose readings are used to adjust insulin doses for meals, monitor dietary compliance, and adjust for high or low blood glucoses by patient on a daily basis. Blood glucose readings are reviewed at office visits for adjustment in medication regimen and assistance with dietary management, and other self- management issues including exercise, etc. Prognosis: Good. Duration of need for diabetes testing equipment: Permanent #150 strips/month prescribed. 6. Bring blood sugar meter to follow up appointment. Orders Placed This Encounter Procedures PSA, Screen Hemoglobin A1c Comprehensive Metabolic Panel CBC and Differential Electronically signed by Mary Yan MD 03/13/19 10:37 PM documented in this encounter Reason for Referral Status Reason Specialty Diagnoses / Procedures Referred By Contact Referred To Contact Authorized Cardiology Diagnoses Bilateral carotid artery stenosis Procedures Ultrasound doppler carotid Mary Yan MD [address] [place] [address] Status Reason Specialty Diagnoses / Procedures Referre d By Contact Referred To Contact Closed Cardiology Diagnoses Bilateral carotid artery stenosis Procedures Ultrasound doppler carotid Yuriy, Mary Chi MD [address] [place] [address] [facility] [address] [facility] [place] [address] Specialty Diagnoses / Procedures Referred By Contac t Referred To Contact Urology Diagnoses Elevated PSA Paty Ortega CNP [address] [place] [address] Alvaro Gutierrez MD [address] [place] [phone] Referral ID Status Reason Start Date Expiration Date Visits Requested Visits Authorized [id number] Pending Review Specialty Services Required/Pat ient's Best Interest 06/19/2022 06/19/2023 1 1 Specialty Diagnoses / Procedures Referred By Contac t Referred To Contact Cardiology Diagnoses Bilateral carotid artery stenosis Procedures Ultrasound doppler carotid Paty Ortega CNP [address] [place] [address] Referral ID Status Reason Start Date Expiration Date V isits Requested Visits Authorized [id number] Authorized 10/19/2022 10/19/2023 1 1 Specialty Diagnoses / Procedures Referred By Contac t Referred To Contact Radiology Diagnoses Congestive heart failure, unspecified HF chronicity, unspecified heart failure type (HCC) 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 Procedures NM Myocardial Perfusion Multiple SPECT Day, Mayi Loera MD [address] [place] [address] Referral ID Status Reason Start Date Expiration Date V isits Requested Visits Authorized [id number] New Request 10/21/2023 10/20/2024 4 4 Additional Source Comments (unrecognized sect ion and content) No Status Records FoundNo Status Records FoundNo Status Records FoundNo Status Records FoundNo Status Records FoundNo Status Records FoundNo Status Records FoundNo Status Records FoundNo Status Records FoundNo Status Records Found INFORMATION SOURCE (unrecogn ized section and content) DATE CREATED AUTHOR AUTHOR'S ORGANIZ ATION 07/05/2019 [facility] DATE CREATED AUTHOR AUTHOR'S ORGANIZ ATION 02/20/[address] [facility] DATE CREATED AUTHOR AUTHOR'S ORGANIZ ATION 08/04/2023 [facility] DATE CREATED AUTHOR AUTHOR'S ORGANIZ ATION 08/06/2023 [facility] DATE CREATED AUTHOR AUTHOR'S ORGANIZ ATION 08/29/[address] [facility] DATE CREATED AUTHOR AUTHOR'S ORGANIZ ATION 10/03/2023 [facility] DATE CREATED AUTHOR AUTHOR'S ORGANIZ ATION 10/13/2023 [facility] DATE CREATED AUTHOR AUTHOR'S ORGANIZ ATION 10/16/2023 [facility] DATE CREATED AUTHOR AUTHOR'S ORGANIZ ATION 10/23/2023 [facility] Reason for Visit (unrecogniz ed section and content) Reason Onset Date Comments Medication Refill 02/18/2021 Reason Comments Diabetes Mellitus Status Reason Specialty Diagnoses / Procedures Referre d By Contact Referred To Contact Closed Cardiology Diagnoses Bilateral carotid artery stenosis Procedures Ultrasound doppler carotid Mary Yan MD [address] [place] [id number] [place] [address] Reason Onset Date Comments Medication Refill 10/08/2021 Reason Comments Diabetes Mellitus Gap Closure (Health Maintenance) Ophthal mology Exam due on 10/14/2021Urine Microalbumin due on 2A1C due on 09/08/2022 Reason Onset Date Comments Medication Refill 12/31/2022 Reason Comments Diabetes Mellitus Gap Closure (Health Maintenance) Ophthal mology Exam due on 10/14/2021Urine Microalbumin due on 12/12/2021 Reason Comments Medication Refill Reason Comments Follow-up 1 MO FUV. Labs compl eted. Reason Comments Diabetes Mellitus Gap Closure (Health Maintenance) Diabeti c Eye Exam due on 10/14/2021Urine Microalbumin due on 12/12/2021 Reason Comments Fever Pt comes in for feve rs and chills x 2-3 days Specialty Diagnoses / Procedures Referred By Contac t Referred To Contact Diagnoses Acute respiratory failure with hypoxia (CMS/HCC) Pneumonia of both lungs due to infectious organism, unspecified part of lung Acute congestive heart failure, unspecified heart failure type (CMS/HCC) COVID-19 Procedures No coded services entered Praful Resendiz MD [address] [place] [id number] [facility] [address] [place] [phone] Referral ID Status Reason Start Date Expiration Date Visits Re quested Visits Authorized [id number] 1 1 Reason Comments Initial Visit (Intake) SOBOE Specialty Diagnoses / Procedures Referred By Contac t Referred To Contact Cardiology Diagnoses Congestive heart failure, unspecified HF chronicity, unspecified heart failure type ([facility]) Mary Yan MD [address] [place] [id number] [place] [address] Referral ID Status Reason Start Date Expiration Date Visits Re quested Visits Authorized [id number] Closed 10/19/2023 10/18/2024 1 1 Care Teams (unrecognized sec tion and content) Binding End Stitcher Relationship Specialty Start Date End Date Nancy Mirza MD PCP - General Family Medicine 01/09/16 Binding End Stitcher Relationship Specialty Start Date End Date Nancy Mirza MD PCP - General Family Medicine 01/09/16 Binding End Stitcher Relationship Specialty Start Date End Date Nancy Mirza MD PCP - General Family Medicine 01/09/16 Binding End Stitcher Relationship Specialty Start Date End Date Nancy Mirza MD PCP - General Family Medicine 01/09/16 Binding End Stitcher Relationship Specialty Start Date End Date Nancy Mirza MD PCP - General Family Medicine 01/09/16 Binding End Stitcher Relationship Specialty Start Date End Date Nancy Mirza MD PCP - General Family Medicine 01/09/16 Binding End Stitcher Relationship Specialty Start Date End Date Nancy Mirza MD [address] [place] [address] PCP - General Family Medicine 01/09/16 Binding End Stitcher Relationship Specialty Start Date End Date Nancy Mirza MD [address] [place] [address] PCP - General Family Medicine 01/09/16 Binding End Stitcher Relationship Specialty Start Date End Date Nancy Mirza MD [address] [place] [address] PCP - General 11/01/18 Binding End Stitcher Relationship Specialty Start Date End Date Ryley Jeter MD [address] [place] [address] PCP - General Family Medicine 10/08/23 Binding End Stitcher Relationship Specialty Start Date End Date Nancy Mirza MD [address] [place] [address] PCP - General 11/01/18 Binding End Stitcher Relationship Specialty Start Date End Date Ryley Jeter MD [address] [place] [address] PCP - General Family Medicine 10/08/23 Binding End Stitcher Relationship Specialty Start Date End Date Ryley Jeter MD [address] [place] [address] PCP - General Family Medicine 10/08/23 Scheduled Active and Recently Administ ered Medications (unrecognized section and content) Continuous Medication Order 10/11/2023 10/12/2023 10/13/2023 insulin regular 100 unit/100 mL (1 unit/mL) in 0.9 % NaCl infusion (CANCELED) 0-20 Units/hr (0-20 mL/hr), intravenous, Continuous, Starting on Wed10/11/23 at 1230, Check blood glucose hourly while on infusion / protocol, unless otherwise specified by the calculator. If blood glucose is within target range (140-180 mg/dL) for 3 consecutive measures, then monitoring can be reduced to every 2 hours. If instructed by the calculator to hold the infusion until blood glucose is greater than or equal to 140 mg/dL, do not document subsequent blood glucose values in the calculator until the patient's blood glucose is greater than or equal to 140 mg/dL and the infusion should be resumed. If enteral / parenteral nutrition is stopped abruptly, reduce the insulin infusion rate by 50%. Be mindful of significant changes in dextrose containing fluid infusion rates. Notify provider if patient is eating. Patients requiring IV insulin infusion are typically not eating. If eating, consider switching patient from insulin drip to subcutaneous injections. Fast-acting SC insulin should be administered after meals to cover the meal (1 unit insulin per 15 grams of carbohydrates consumed - usual dose is 3 to 6 units). SC insulin should be considered with order obtained from provider. Dose may be adjusted proportionate to the percentage of the tray consumed (e.g. insulin dose if of tray eaten). Notify provider if infusion is discontinued without appropriate scheduled subcutaneous insulin ordered for patients with insulin dependent diabetes, and those requiring greater than 1 unit per hour. These patients should be transitioned to scheduled insulin. ~~~~~~~~~ IF BLOOD GLUCOSE DECREASED > or = 30 mg/dL since last level ~~~~~~~~~ < or = 70 mg/dL ---- Hold insulin infusion. Give 1 amp 50% Dextrose. Notify ICU Resident 71-100 mg/dL ------- Hold insulin infusion 100-139 mg/dL ----- Hold insulin infusion 140-180 mg/dL ----- Decrease rate by 25% 181-250 mg/dL ----- Continue current rate 251-300 mg/dL ----- Continue current rate 301-350 mg/dL ----- Continue current rate 351-400 mg/dL ----- Continue current rate >400 mg/dL Notify ICU Resident ~~~~~~ IF BLOOD GLUCOSE DECREASED < 30 mg/dL or INCREASED since last level ~~~~~ < or = 70 mg/dL ---- Hold insulin infusion. Give 1 amp 50% Dextrose. Notify ICU Resident 71-100 mg/dL ------- Hold insulin infusion 100-139 mg/dL ----- Decrease rate by 50% 140-180 mg/dL ----- Continue current rate 181-250 mg/dL ----- Increase rate by 25% 251-300 mg/dL ----- Bolus 2 units. Incrase rate by 25% 301-350 mg/dL ----- Bolus 4 units. Increase rate by 50% 351-400 mg/dL ----- Bolus 6 units. Increase rate by 50% >400 mg/dl Notify ICU Resident Clinician Notes: When monitoring is done Q1h upward titrations should be made Q2h only 1354 (New Bag - Provider: Leticia Nagel, FIDEL)1639 (Rate/Dose Verify - Provider: Leticia Nagel RN)2158 (Rate/Dose Change - Provider: Jody Ball RN - Comment: Per Dr. Basilio, turn inuslin infusion to 3 units/hour)0868 (Stopped - Provider: Jody Ball RN) sodium chloride 0.9% infusion (CANCELED) 150 mL/hr, intravenous, Continuous, Starting on Wed10/11/23 at 0115 0115 (New Bag - Provider: Heather Leonardo, FIDEL)0149 (Stopped - Provider: Heather Leonardo RN) PRN Medication Order 10/11/2023 10/12/2023 10/13/2023 acetaminophen (Tylenol) oral liquid 650 mg(Linked Group 2) 650 mg, oral, Every 4 hours PRN, pain mild (1-3), first line, Starting on Wed10/11/23 at 0502, Give oral liquid per feeding tube if present. acetaminophen (Tylenol) suppository 650 mg(Linked Group 2) 650 mg, rectal, Every 4 hours PRN, pain mild (1-3), first line, Starting on Wed10/11/23 at 0502, Give rectally if unable to administer by mouth or feeding tube., If ordered PRN for pain, nurse is permitted to administer this medication for higher pain scores based on patient preference? Yes acetaminophen (Tylenol) tablet 650 mg(Linked Group 2) 650 mg, oral, Every 4 hours PRN, pain mild (1-3), first line, Starting on Wed10/11/23 at 0502, If ordered PRN for pain, nurse is permitted to administer this medication for higher pain scores based on patient preference? Yes dextrose 10 % in water (D10W) infusion 0.3 g/kg/hr 71.7 kg (215.1 mL/hr), intravenous, Once as needed, For blood glucose less than 70 mg/dL after 30 minutes of intervention. Discontinue once blood glucose reaches 100 mg/dL., Starting on Wed10/11/23 at 1222, For 1 dose, Discontinue once blood glucose reaches 100 mg/dL. dextrose 50 % injection 25 g 25 g, intravenous, Every 15 min PRN, For blood glucose less than or equal to 40 mg/dL, Starting on Wed10/11/23 at 0424, May repeat until blood glucose level reaches 100 mg/dL or greater. Push 2 - 3 mL/minute if patient has secure IV access. glucagon (Glucagen) injection 1 mg 1 mg, intramuscular, Every 15 min PRN, low blood sugar - see comments, For blood glucose less than or equal to 70 mg/dL and no IV access, Starting on Wed10/11/23 at 0424, Give until blood glucose is 100 mg/dL or greater. If patient DOES NOT HAVE secure IV access & patient is unconscious, NPO or is unable to eat or drink. LORazepam (Ativan) tablet 0.5 mg 0.5 mg, oral, 2 times daily PRN, anxiety, for anxiety, Starting on Wed10/12/23 at 1651 1704 (Given - Provider: Moody Gorman, RN) 0012 (Given - Provider: Amber Jacobsen, FIDEL) magnesium hydroxide (Milk of Magnesia) 2,400 mg/10 mL suspension 10 mL 10 mL, oral, Daily PRN, constipation, first line, Starting on Wed10/11/23 at 0502, Contact provider if no bowel movement in past 48 hours. Concentrated product. Follow administration with 8 ounces of water. ondansetron (Zofran) injection 4 mg(Linked Group 3) 4 mg, intravenous, Every 8 hours PRN, nausea/vomiting, first line, Starting on Wed10/11/23 at 0502, 1st Line. Give IV if patient is unable to take orally. If inadequate response within 60 minutes, proceed to next-line agent for same PRN reason or contact provider if no further options ordered. When administering via IV Push, administer over 3-5 minutes. ondansetron ODT (Zofran-ODT) disintegrating tablet 4 mg(Linked Group 3) 4 mg, oral, Every 8 hours PRN, nausea/vomiting, first line, Starting on Wed10/11/23 at 0502, 1st Line. Patient should allow tablet to dissolve on tongue. Do not remove from blister pack until just before administering. If inadequate response within 60 minutes, proceed to next-line agent for same PRN reason or contact provider if no further options ordered. oxygen (O2) therapy inhalation, Continuous PRN - O2/gases, other, Starting on Wed10/11/23 at 0235, Device: Non-Invasive Ventilation, Rate in liters per minute: Other, Custom Value: 40, FIO2: 40 0603 (Rate/Dose Change - Provider: Nancy Juares RRT)0918 (Rate/Dose Change - Provider: Nancy Juares RRT)1151 (Rate/Dose Verify - Provider: Nancy Juares RRT)1155 (Rate/Dose Change - Provider: Nancy Juares RRT)1428 (Rate/Dose Verify - Provider: Nancy I Juares, WET POUR SUPERVISOR)1822 (Start - Provider: Scarlet Ashford, WET POUR SUPERVISOR) 0208 (Rate/Dose Verify - Provider: Scarlet Ashford, WET POUR SUPERVISOR)0654 (Rate/Dose Change - Provider: Amber Pascal RRT - Comment: Decreased to RA)1034 (Rate/Dose Change - Provider: Amber Pascal WET POUR SUPERVISOR)1914 (Start - Provider: Ez Hemphill, WET POUR SUPERVISOR)2310 (Start - Provider: Ez Hemphill RRT) 0623 (Rate/Dose Verify - Provider: Delmar Mcgowan WET POUR SUPERVISOR)0632 (Rate/Dose Change - Provider: Delmar Mcgowan RRT) Linked Groups Order Group 1: aspirin chewable tablet 324 mgJump to med 324 mg, oral, Daily, First dose on Wed10/11/23 at 0900
If unable to take orally, may crush and immediately give by feeding tube.
Or aspirin suppository 150 mgJump to med 150 mg, rectal, Daily, First dose on Wed10/11/23 at 0900
If unable to give by mouth or feeding tube.
Group 2: acetaminophen (Tylenol) tablet 650 mgJump to med 650 mg, oral, Every 4 hours PRN, pain mild (1-3), first line, Starting on Wed10/11/23 at 0502
If ordered PRN for pain, nurse is permitted to administer this medication for higher pain scores based on patient preference? Yes Or acetaminophen (Tylenol) oral liquid 650 mgJump to med 650 mg, oral, Every 4 hours PRN, pain mild (1-3), first line, Starting on Wed10/11/23 at 0502
Give oral liquid per feeding tube if present.
Or acetaminophen (Tylenol) suppository 650 mgJump to med 650 mg, rectal, Every 4 hours PRN, pain mild (1-3), first line, Starting on Wed10/11/23 at 0502
Give rectally if unable to administer by mouth or feeding tube.
If ordered PRN for pain, nurse is permitted to administer this medication for higher pain scores based on patient preference? Yes Group 3: ondansetron ODT (Zofran-ODT) disintegrating tablet 4 mgJump to med 4 mg, oral, Every 8 hours PRN, nausea/vomiting, first line, Starting on Wed10/11/23 at 0502
1st Line. Patient should allow tablet to dissolve on tongue. Do not remove from blister pack until just before administering. If inadequate response within 60 minutes, proceed to next-line agent for same PRN reason or contact provider if no further options ordered.
Or ondansetron (Zofran) injection 4 mgJump to med 4 mg, intravenous, Every 8 hours PRN, nausea/vomiting, first line, Starting on Wed10/11/23 at 0502
1st Line. Give IV if patient is unable to take orally. If inadequate response within 60 minutes, proceed to next-line agent for same PRN reason or contact provider if no further options ordered. When administering via IV Push, administer over 3-5 minutes.
FOR RECORDS PERTAINING TO PATIENTS WHO ARE OR HAVE BEEN ENROLLED IN A CHEMICAL DEPENDENCY/SUBSTANCEABUSE PROGRAM, SOME INFORMATION MAY BE OMITTED. This clinical summary was aggregated from multiple sources. Caution should be exercised in using it in the provision of clinical care. This summary normalizes information from multiple sources, and as a consequence, information in this document may materially change the coding, format and clinical context of patient data. In addition, data may be omitted in some cases. CLINICAL DECISIONS SHOULD BE BASED ON THE PRIMARY CLINICAL RECORDS. [employer] [facility]. provides no warranty or guarantee of the accuracy or completeness of information in this document.
[2023-11-25 15:27] LABS: Absolute Lymphocyte Count 1.79 X10^3/uL (0.83-4.51); Absolute Neutrophil Count 6.3 X10^3/uL (2.0-7.7); Basophil# 0.09 X10^3/uL; Eosinophil# 0.21 X10^3/uL; Eosinophils% 2.3 % (0-5); Hematocrit 37.7 % (40-54); Hemoglobin 12.2 g/dL (13.0-16.5); Lymphocyte # 1.79 X10^3/ul (0.83-4.51); Lymphocyte % 19.7 % (19-41); Mean Corp Hgb Conc 32.4 g/dL (32-36); Mean Corpuscular Hgb 30.3 pg (27.0-32.0); Mean Corpuscular Volume 93.5 fL (80-94); Mean Platelet Vol. 11.3 fl (6.2-12.0); Monocyte# 0.68 X10^3/uL; Monocyte% 7.5 % (0-10); NRBC Flagged by Analyzer 0 % (0-5); Neutrophil % 69.2 % (47-70); Platelet Count 239 K/mm3 (150-450); RBC Distribution Width CV 14.1 % (11.6-14.6); RBC Distribution Width SD 47.9 fl (35.1-43.9); Red Blood Count 4.03 M/mm3 (4.6-6.2); White Blood Count 9.1 K/mm3 (4.4-11.0)
[2023-11-25 16:52] LABS: AST(SGOT) 23 U/L (15-37); Alanine Aminotransfer ALT/SGPT 25 U/L (16-61); Albumin, Serum 3.6 g/dL (3.2-5.0); Alkaline Phosphatase 98 U/L (45-117); Anion Gap 4 (5-15); BUN 21 mg/dL (7-18); BUN/Creat Ratio 13.5 RATIO (10-20); Calcium,Total 9.5 mg/dL (8.5-10.1); Chloride 113 mmol/L (98-107); Creatinine, Serum 1.56 mg/dL (0.70-1.30); EST Glomerular Filtration Rate 46 mL/min (>60); Est Glom Filt Rate - Afr Amer 55 mL/min (>60); Globulin 3.5 g/dL (2.2-4.2); Glucose 130 mg/dL (74-106); Potassium 4.3 mmol/L (3.5-5.1); Protein, Total 7.1 g/dL (6.4-8.2); Sodium Level 142 mmol/L (136-145)
== END | disposition home or self-care (01) ==
PROVIDERS: PCP Family Medicine; Referring Provider Family Medicine; Visit Provider Family Medicine
DX: D64.9 Anemia, unspecified (principal); N17.9 Acute kidney failure, unspecified; R05.8 Other specified cough
CPT/HCPCS: 36415; 71046; 80053; 84443; 85025

== ENCOUNTER → 2023-12-15 | Outpatient (CLI) | payer MEDICARE, SELFPAY ==
[2023-12-15 17:50] LABS: Anion Gap 2 (5-15); BUN 28 mg/dL (7-18); BUN/Creat Ratio 14.9 RATIO (10-20); Calcium,Total 9.4 mg/dL (8.5-10.1); Chloride 109 mmol/L (98-107); Creatinine, Serum 1.88 mg/dL (0.70-1.30); EST Glomerular Filtration Rate 37 mL/min (>60); Est Glom Filt Rate - Afr Amer 45 mL/min (>60); Glucose 126 mg/dL (74-106); Potassium 4.1 mmol/L (3.5-5.1); Sodium Level 140 mmol/L (136-145)
== END | disposition home or self-care (01) ==
PROVIDERS: PCP Family Medicine; Referring Provider Family Medicine; Visit Provider Family Medicine
DX: I50.9 Heart failure, unspecified (principal)
CPT/HCPCS: 36415; 80048

== ENCOUNTER → 2024-03-22 | Outpatient (CLI) | payer MEDICARE, SELFPAY ==
--- NOTE | 2024-03-22 11:41 | RAD_ITS ---
STUDY: X-RAY - LUMBAR SPINE REASON FOR EXAM: Male, 78 years old. Back pain. TECHNIQUE: 4 view(s) of the lumbar spine were obtained. COMPARISON: None FINDINGS: Osteopenia. Reversal of the normal lordosis. Rotatory levoscoliosis of the lower lumbar spine. 7 mm of anterolisthesis of L3 on L2 and 3 mm of anterolisthesis of L5 on L4. Endplate concavities compatible with osteoporosis. Diffuse intervertebral disc space narrowing with osteophytes most marked at L1-2, L2-3 and L3-4. Vascular calcification. RAD/L/S Spine Min 4 Views IMPRESSION: Osteopenia, levoscoliosis and diffuse moderate to marked lumbosacral spondylosis most marked at L1-2, L2-3 and L3-4 Electronically Signed: Delmar Lyons MD at 12:39 EDT ,
== END | disposition home or self-care (01) ==
PROVIDERS: PCP Family Medicine; Referring Provider Family Medicine; Visit Provider Family Medicine
DX: M54.50 Low back pain, unspecified (principal)
CPT/HCPCS: 72110

== ENCOUNTER 2024-05-17 15:00 | Outpatient (RCR) | payer MEDICARE, SELFPAY ==
--- NOTE | 2024-04-19 11:48 | HP.PTEVAL ---
Patient's Visit Information Visit Information Visit Information: SERENA ARMANDO is a 78 year old M referred to Physical Therapy by Dr. Kayden Colon MD with a diagnosis of LUMBAR RADICULOPATHY. Date of Evaluation: 04/19/24 Physical Therapist: Prashant Gamboa, PT, Cert MDT, OCS Visit Plan Frequency: 2x /Week Duration: 4 Weeks Plan: PT INTERVENTIONS LUMBAR FLEXION ,LE FLEXABILITY ,DLS ,POSTURAL EX'S AND ACTIVITY MODIFICATION Subjective Subjective: This 78 y/o male presents to physical therapy with lumbar radiculopathy. Patient has had lumbar pain with radiculopathy for many years which has been worsening. Patient seen DR Colon. Reviewed x-rays scoliosis and stenosis and and recommended PT. Also recommended pain management but patient wants to hold off pain management. Location of pain symmetrical lumbar pain and symptoms to thighs knees and ankle . Aggravating standing walking and walks with cart ,worse with bending lifting . Alleviating factors sitting. Coughing/sneezing. Bowel/bladder good. Denies paresthesia/tingling. Sleeping good. Patient has never seen pain management. Patient had COVID and pneumonia last year and was hospitalized. Patient has generalized weakness . Patient has had PT in past. Patient condition affects QOL and function, Goals to get stronger. SOCIAL: VOCATION: RETIRED Pain Bilateral Back: Pain Intensity (Out of 10): 5 Pain Intensity Range: 10 Objective Objective: POSTURE: mild forward posture ,scoliosis GAIT: ambulates with mild forward posture reciprocal pattern 2 point gait slow john PALPATION: tender LS/SI NEURO: denies paresthesia/tingling ,reflexes L3-4,L4-5 ,L5-S1 1/3 FLEXABILITY: hamstrings mod tight LUMBAR ROM: flexion mod loss ,extension severe loss pain side right mod/severe loss ,left mod loss MMT: quads/hams 4/5 ,( peak force) hips flexion right 22.1 ,left 23.2,ankle 4/5 Special Tests L/S Slump test left side: Negative L/S Slump test right side: Negative L/S Left Straight Leg Raise: Negative L/S Right Straight Leg Raise: Negative Balance/Special Test Scores Oswestry Low Back Score: 30 Goals Goal 1:: Patient to be I with HEP Goal Time Frame: 4-6 Weeks Goal 2:: Patient to demonstrate 50% improvement with improved function and gait Goal Time Frame: 4-6 Weeks Goal 3:: Patient to improve lumbar ROM for function of recovery to put on shoes Goal Time Frame: 4-6 Weeks Goal 4:: Patient to improve peak force hips by 5 -10# strength to improve function Goal Time Frame: 4-6 Weeks Goal 5:: Patient to improve back oswestry score by 5 points to improve QOL and function Goal Time Frame: 4-6 Weeks Rehabilitation Potential Physical Therapy Diagnosis: This patient has lumbar radicular symptoms with poor lumbar ROM ,weakness hips decrease gait thus impairs function and ADLS thus benefit from skilled PT Rehabilitation Potential: Good Anticipated Interventions Patient/Client Instruction: Educate patient on: Condition and Plan of Care For the Purpose of:: To decrease pain, To increase ROM, To improve muscle performance and motor function, To improve ability to perform ADL's, To increase tolerance to activity/condition/position, To improve ability of physical actions for home/community/work/leisure, To improve health of tissue, To decrease soft tissue restriction, To increase flexibility/ROM, To reduce risk of recurrence and To improve tolerance to ADL's Therapeutic Exercise to Include: Strength training, Postural training, Flexibilty training and Dynamic Lumbar Stabilization Comment: BLE -HIPS For the Purpose of:: To increase ROM, To improve muscle performance and motor function, To improve ability to perform ADL's, To increase tolerance to activity/condition/position, To improve performance and independence with ADL's, To improve ability of physical actions for home/community/work/leisure, To improve health of tissue, To decrease soft tissue restriction, To increase flexibility/ROM and To improve tolerance to ADL's TENS: Yes IF ES: Yes Thermo therapy (hot pack): Yes Ultrasound (thermal/non thermal): Yes For the Purpose of:: To decrease pain, To improve nutrient delivery to tissue, To increase oxygenation perfusion, To improve health of tissue and To decrease soft tissue restriction Text: Thank you for the opportunity to evaluate your patient. For Medicare and Medicare HMO plans, please review the plan of care and approve it. It will need to be FAXED BACK to us at [phone] for Medicare purposes. For Medicare only, by signing this I certify the plan of care. Please let me know if there are questions or concerns regarding this plan of care. Physician Signature: Date:
--- NOTE | 2024-05-17 15:26 | HP.PTDCSUM ---
Discharge Summary D/C summary: It has been my pleasure to treat SERENA ARMANDO referred by Dr. Kayden Colon MD, with the diagnosis of LUMBAR RADICULOPATHY for a total of 9 visit(s). Discharge Date: 05/17/24 Please see the following information for a summary of their discharge status. Subjective Subjective: Seen Pain Bilateral Back: Pain Intensity (Out of 10): 6 Overall Improvement % Improvement: 10 Objective Objective/Function: POSTURE: mild forward posture ,scoliosis GAIT: ambulates with mild forward posture reciprocal pattern 2 point gait slow john PALPATION: tender LS/SI NEURO: denies paresthesia/tingling ,reflexes L3-4,L4-5 ,L5-S1 1/3 FLEXABILITY: hamstrings mod tight LUMBAR ROM: flexion min loss ,extension severe loss pain side right mod ,left mod loss MMT: quads/hams 4/5 ,( peak force) hips flexion right 33.5 ,left 33.6,ankle 4/5 Goals Goal 1:: Patient to be I with HEP Goal Progress: Goal Met Goal 2:: Patient to demonstrate 50% improvement with improved function and gait Goal Progress: Progressing Goal 3:: Patient to improve lumbar ROM for function of recovery to put on shoes Goal Progress: Progressing Goal 4:: Patient to improve peak force hips by 5 -10# strength to improve function Goal Progress: Progressing Goal 5:: Patient to improve back oswestry score by 5 points to improve QOL and function Goal Progress: Progressing Plan Plan: D/C D/C Information d/c sentence: If there are questions or concerns regarding this patient's physical therapy, please feel free to call me at [phone]. Thank you for the referral of this patient. Sincerely, Prashant Gamboa, PT, Cert MDT, OCS Balance/Gait/Functional tests Balance/Special Test Scores Oswestry Low Back Score: 30 Improvement % Improvement: 10
== END 2024-05-17 19:00 | disposition home or self-care (01) ==
LOC: PT 15:00
PROVIDERS: PCP Family Medicine; Referring Provider Orthopaedic Surgery Orthopaedic Surgery of the Spine; Visit Provider Orthopaedic Surgery Orthopaedic Surgery of the Spine
DX: M54.16 Radiculopathy, lumbar region (principal)
CPT/HCPCS: 97110; 97162; 97530

== ENCOUNTER 2024-09-12 02:28 | Inpatient (IN) | payer MEDICARE, SELFPAY ==
[2024-09-12] VITALS (51 sets, daily range): BP systolic 84–237; BP diastolic 48–152; PULSE 78–118; RESP 12–30; TEMP 36.4–37.2; O2SAT 92–99; BMI 23.7; BMI 23.6
--- NOTE | 2024-09-12 02:45 | EKG12_ITS ---
Test Reason : DYSRHYTHMIA Blood Pressure : */* mmHG Vent. Rate : 83 BPM Atrial Rate : 83 BPM P-R Int : 150 ms QRS Dur : 78 ms QT Int : 408 ms P-R-T Axes : 47 22 77 degrees QTcB Int : 479 ms Sinus rhythm with Premature atrial complexes Nonspecific ST and T wave abnormality Abnormal ECG Confirmed by JACQUI URIBE, VIK ([id number]), news video editor DANISH MALDONADO ([id number]) on 09/12/2024 6:43:17 AM Referred By: Confirmed By: VIK OSMAN MD
--- NOTE | 2024-09-12 02:45 | RAD_ITS ---
EXAM: XR CHEST, 1 VIEW CLINICAL INDICATION: chest pain TECHNIQUE: Frontal view of the chest. COMPARISON: Two-view chest 11/25/2023 FINDINGS: LUNGS AND PLEURAL SPACES: Bilateral interstitial and alveolar opacities especially in the lower lobes, with small pleural effusions. No pneumothorax. HEART: Unremarkable. Cardiac silhouette not enlarged. MEDIASTINUM: Central airways and mediastinal contour are unremarkable. BONES/JOINTS: Unremarkable. No acute fracture. SOFT TISSUES: Unremarkable. RAD/Chest 1 View (Portable) IMPRESSION: Bilateral interstitial and alveolar opacities especially in the lower lobes, with small pleural effusions. Findings may indicate edema and/or infection. Electronically Signed: Nacho Mabry MD at 3:29 EST ,
[2024-09-12] MEDS: Ipratropium/Albuterol Sulfate 3 ML AMPUL.NEB INHALATION (02:47)
[2024-09-12 03:01] LABS: Absolute Lymphocyte Count 2.62 X10^3/uL (0.83-4.51); Absolute Neutrophil Count 19.7 X10^3/uL (2.0-7.7); Basophil# 0.16 X10^3/uL; Basophil% 0.7 % (0-1); Eosinophils% 0.8 % (0-5); Hematocrit 38.9 % (40-54); Hemoglobin 13.1 g/dL (13.0-16.5); Lymphocyte # 2.62 X10^3/ul (0.83-4.51); Lymphocyte % 10.7 % (19-41); Mean Corp Hgb Conc 33.7 g/dL (32-36); Mean Corpuscular Hgb 30.6 pg (27.0-32.0); Mean Corpuscular Volume 90.9 fL (80-94); Mean Platelet Vol. 11.4 fl (6.2-12.0); Monocyte% 6.2 % (0-10); NRBC Flagged by Analyzer 0 % (0-5); Neutrophil # 19.71 X10^3/uL (2.7-7.7); Neutrophil % 80.8 % (47-70); Platelet Count 227 K/mm3 (150-450); RBC Distribution Width CV 13.8 % (11.6-14.6); RBC Distribution Width SD 46.5 fl (35.1-43.9); Red Blood Count 4.28 M/mm3 (4.6-6.2); White Blood Count 24.4 K/mm3 (4.4-11.0)
--- NOTE | 2024-09-12 03:07 | EDS_ITS ---
HPI History of Present Illness Chief Complaint: Shortness of Breath Informant: patient, spouse/S.O. and EMS Narrative Narrative: 78-year-old male presenting to the emergency room with shortness of breath. Patient states that at around 2200 hrs. he suddenly began to feel short of breath and developed a cough. States that he had pneumonia and COVID at this time last year. He states he has not had any recent illnesses. He has been seeing a sales floor team leader in [place] for COVID related complications and he tells me he is taking metoprolol. He denies a history of congestive heart failure. No reported fevers. No known lung conditions. He was noted to be hypoxic for EMS. [facility] Medical History Pneumonia COVID Wears glasses Wears dentures Insulin dependent diabetes mellitus Prostate disease Easy bruising Back pain Dietary restriction Smoker History of pain when walking History of stress test Cardiology follow-up encounter Hypertension Home Medications ?Medication ?Instructions ?Recorded ?Last Taken ?Type amlodipine 10 mg tablet (Norvasc) 10 mg PO 1200 08/05/21 08/12/21 History aspirin 81 mg tablet,delayed 81 mg PO DAILY 08/05/21 Unknown History release insulin glargine 100 unit/mL (3 15 unit subcut QPM 08/05/21 Unknown History mL) subcutaneous pen (Lantus Solostar U-100 Insulin) insulin lispro 100 unit/mL 0 unit subcut TID SLIDING SCALE 08/05/21 Unknown History subcutaneous pen tamsulosin 0.4 mg capsule (Flomax) 0.4 mg PO .COMPLEX urination 08/05/21 Unknown History ezetimibe 10 mg tablet 10 mg PO DAILY 04/06/24 Unknown History furosemide 20 mg tablet 20 mg PO BID 04/06/24 Unknown History lisinopril 5 mg tablet 5 mg PO DAILY 04/06/24 Unknown History metoprolol succinate 25 mg 25 mg PO DAILY 04/06/24 Unknown History tablet,extended release 24 hr blood sugar diagnostic (Contour 09/12/24 Unknown History Next Test Strips) Allergy/AdvReac Type Severity Reaction Status Date / Time Corticosteroids AdvReac Other Verified 04/06/24 14:38 (Glucocorticoids) (steroids) Zuprpyg-DJB-PmQ Reductase AdvReac Other Verified 06/06/24 14:38 Inhibitor (Vdgcaww-Xvt-Ole Reductase Inhibitor) Surgical History Hx of cystoscopy Hx of colonoscopy Hx of left cataract extraction Hx of right cataract extraction Social History household members: spouse Smoking Status: Current every day smoker tobacco type: cigarettes alcohol intake: never ROS ROS ED Constitutional Constitutional ED: Denies chills, fever(s) or weight loss Eyes Eyes: Denies change in vision or diplopia ENT ENT ED: Denies ear pain, rhinorrhea or sore throat Cardiovascular Cardiovascular: Denies chest pain, orthopnea, palpitations or racing heartbeat Respiratory/Chest Respiratory/Chest: Reports cough, dyspnea and dyspnea on exertion; Denies orthopnea Gastrointestinal Gastrointestinal: Denies abdominal pain, diarrhea, nausea or vomiting Genitourinary Genitourinary ED: Denies dysuria, hematuria or urinary frequency Musculoskeletal Musculoskeletal: Denies arthralgias or myalgias Integumentary Denies abscess or rash Neurologic Neurologic: Denies headache(s) or weakness Psychiatric Psychiatric: Denies anxiety, depression, suicidal ideation or suicidal thoughts Endocrine Endocrinology: Denies polydipsia, polyphagia or polyuria Allergic/Immunologic Allergic/Immunologic ED: Denies mouth swelling, tongue swelling or urticaria EXAM Physical Exam Const Vital Signs: 09/12/24 02:29 09/12/24 02:37 09/12/24 02:39 Temperature 97.6 F L 97.6 F L Temperature Source Axillary Axillary Pulse Rate 118 H 111 H Respiratory Rate 30 H 28 H Respiratory Effort Short of Breath Labored Accessory Muscle Use Respiratory Pattern Blood Pressure 237/99 H 237/99 H Blood Pressure Mean 145 145 Blood Pressure Source Blood Pressure Position Blood Pressure Location Pulse Ox 98 99 Oxygen Delivery Method Non-Rebreather Non-Rebreather Oxygen Flow Rate (L/min) 25 25 Fraction of Inspired Oxygen (FIO2) 09/12/24 02:45 09/12/24 02:47 09/12/24 03:02 Temperature Temperature Source Pulse Rate 117 H 109 H Respiratory Rate 28 H 24 H Respiratory Effort Respiratory Pattern Tachypnea Tachypnea Blood Pressure Blood Pressure Mean Blood Pressure Source Blood Pressure Position Blood Pressure Location Pulse Ox 92 94 Oxygen Delivery Method Room Air Oxygen Flow Rate (L/min) Fraction of Inspired Oxygen (FIO2) 40 09/12/24 03:26 09/12/24 03:37 09/12/24 03:40 Temperature 98.5 F Temperature Source Oral Pulse Rate 82 85 Respiratory Rate 27 H Respiratory Effort Respiratory Pattern Blood Pressure 204/91 H 203/69 H 203/69 H Blood Pressure Mean 128 113 113 Blood Pressure Source Monitor Monitor Blood Pressure Position Semi-Fowlers Semi-Fowlers Blood Pressure Location Left Arm Left Arm Pulse Ox 95 Oxygen Delivery Method Bi-pap Oxygen Flow Rate (L/min) Fraction of Inspired Oxygen (FIO2) 09/12/24 04:03 09/12/24 04:03 09/12/24 04:17 Temperature Temperature Source Pulse Rate 80 82 Respiratory Rate 18 24 H Respiratory Effort Respiratory Pattern Tachypnea Blood Pressure 190/80 H 190/80 H Blood Pressure Mean 116 116 Blood Pressure Source Monitor Blood Pressure Position Semi-Fowlers Blood Pressure Location Left Arm Pulse Ox 94 94 Oxygen Delivery Method Bi-pap Oxygen Flow Rate (L/min) Fraction of Inspired Oxygen (FIO2) 35 09/12/24 04:57 09/12/24 05:05 Temperature 98.5 F Temperature Source Pulse Rate 82 Respiratory Rate 24 H Respiratory Effort Respiratory Pattern Blood Pressure 179/82 H 179/82 H Blood Pressure Mean 114 114 Blood Pressure Source Monitor Blood Pressure Position Semi-Fowlers Blood Pressure Location Left Arm Pulse Ox 94 Oxygen Delivery Method Oxygen Flow Rate (L/min) Fraction of Inspired Oxygen (FIO2) Positive well nourished and well developed General Appearance ED: well developed HEENT Reports normocephalic, head/scalp atraumatic and moist mucous membranes Eyes PERRL and EOMs intact bilaterally Neck no lymphadenopathy, supple and no JVD Resp Resp Narrative: Patient with increased work of breathing/respiratory distress. Patient has a very loud upper airway disturbance that is not present when he speaks. I cannot get him to pursed lip breathing to see if it resolves but it definitely appears to be upper airway. Lower lung sounds are coarse but I do not hear a definitive expiratory wheeze. Cardio regular rate, regular rhythm and no murmurs Rate: tachycardic GI normal to inspection, nondistended, normoactive bowel sounds and non-tender Palpation: soft Back/Spine no CVA tenderness and normal ROM Extremity normal to inspection General Extremety ED: Negative for edema General Extremity: Negative for edema Neuro oriented x3 and CN's II-XII intact bilaterally Sensorium / Orientation: alert Motor Exam: strength 5/5 throughout Psych mental status grossly normal Mood & Affect: Negative for depressed or tearful Skin no rashes or lesions noted and no wounds MDM MDM MDM Narrative Medical decision making narrative: Differential diagnosis includes congestive heart failure hypertensive urgency respiratory failure bronchitis pneumonia bronchospasm acute coronary syndrome Nursing ordered a DuoNeb which I removed when I began speaking with the patient as I suspected that this was CHF and not bronchospasm. Patient was placed on BiPAP and his breathing rapidly improved. However his pressure still remained very elevated in the 220s to 230s systolic range. He was placed on nitroglycerin. White count returns at 24.4 which I think is most likely stress- induced. My independent interpretation of his chest x-ray is pulmonary edema. Hemoglobin 13.1 platelet count 227 INR at 1.1 PTT 35.1 troponin is 57 BNP 903 creatinine 1.86 with a BUN of 27. Patient received Lasix. He continues to be doing well on the BiPAP. We have made some progress in his hypertension. We will be admitting him into the hospital for further management History & Record Review Discussion w/independent historian: EMS personnel, Patient and Significant other Additional record(s) reviewed:: Prior labs Lab Data Attestation: I reviewed the patient's lab results. Labs: Laboratory Results - last 24 hr 09/12/24 02:40 WBC 24.4 H RBC 4.28 L Hgb 13.1 Hct 38.9 L MCV 90.9 MCH 30.6 MCHC 33.7 RDW Std Deviation 46.5 H RDW Coeff of [place] 13.8 Plt Count 227 MPV 11.4 Immature Gran % (Auto) 0.800 Neut % (Auto) 80.8 H Lymph % (Auto) 10.7 L [place] % (Auto) 6.2 Eos % (Auto) 0.8 Baso % (Auto) 0.7 Absolute Neuts (auto) 19.7 H Absolute Lymphs (auto) 2.62 Nucleated RBC % 0 PT 14.6 INR 1.1 APTT 35.1 Sodium 138 Potassium 4.1 Chloride 105 Carbon Dioxide 22.0 Anion Gap 11 BUN 27 H Creatinine 1.86 H Estim Creat Clear Calc 29.61 Est GFR (MDRD) Af Amer 45 L Est GFR (MDRD) Non-Af 37 L BUN/Creatinine Ratio 14.5 Glucose 369 H Calcium 9.1 Magnesium 2.1 Troponin I High Sens 57 B-Natriuretic Peptide 903.4 H Radiography Diagnostic Testing: Clinical Impression(s) from Imaging Studies Chest X-Ray 09/12/24 02:45 IMPRESSION: Bilateral interstitial and alveolar opacities especially in the lower lobes, with small pleural effusions. Findings may indicate edema and/or infection. Electronically Signed: Nacho Mabry MD at 3:29 EST , EKG Initial EKG: Attestation: I personally reviewed and interpreted this EKG as follows: Comments: Sinus rhythm ventricular rate of 83 bpm PACs noted Management Discussion w/another healthcare provider: Hospitalist (Dr Koroma) Critical Care Time Critical Care Time: Yes Critical care time (excluding procedures): 30-74 minutes (35 min), Including time spent:, Discussing w/Patient &/or Family/Handbag Designer, Discussing w/Consultants, Arranging Admission or Transfer and Performing Direct Patient Care at Bedside Discharge Plan Dx/Rx/DC Orders Clinical Impression: Acute hypoxemic respiratory failure, Flash pulmonary edema, Hypertensive emergency Disposition Disposition: Acute Care [facility]
[2024-09-12 03:16] LABS: International Normalized Ratio 1.1; Prothrombin Time (Protime)PT. 14.6 SECONDS (11.7-14.9)
[2024-09-12 03:17] LABS: Partial Thromboplast Time 35.1 Seconds (24.1-36.2)
[2024-09-12 03:24] LABS: Anion Gap 11 (5-15); BUN 27 mg/dL (7-18); BUN/Creat Ratio 14.5 RATIO (10-20); Calcium,Total 9.1 mg/dL (8.5-10.1); Chloride 105 mmol/L (98-107); Creatinine, Serum 1.86 mg/dL (0.70-1.30); EST Glomerular Filtration Rate 37 mL/min (>60); Est Glom Filt Rate - Afr Amer 45 mL/min (>60); Estimated Creatinine Clearance 29.61 ml/min; Glucose 369 mg/dL (74-106); Magnesium 2.1 mg/dL (1.6-2.6); Potassium 4.1 mmol/L (3.5-5.1); Sodium Level 138 mmol/L (136-145); Troponin-I HS (w/2H Reflex) 57 pg/mL (3.0-78.0)
[2024-09-12] MEDS: Nitroglycerin Infusion 250 ML 6 MG CONT INF (03:26)
[2024-09-12 04:08] LABS: BNP,B-Type NATRIURETIC PEPTIDE 903.4 pg/mL (0-100)
[2024-09-12 04:55] LABS: Reflex Troponin-HS? (from REC) Y
[2024-09-12] MEDS: Furosemide 100 MG/10 ML Vial 60 MG IV (04:55)
--- NOTE | 2024-09-12 05:11 | HP.PCM_ITS ---
HPI - General General Date of Admission: 09/12/24 Date of Service: 09/12/24 Chief Complaint: Shortness of breath HPI Narrative SERENA ARMANDO, is a 78 M who presents to the emergency room with acute onset of shortness of breath. Symptoms began at 10:00 this evening while he was at rest and patient describes feeling suddenly short of breath. He denies chest pain, fevers and/or chills and/or nausea or vomiting at this time. Patient was noted to be hypoxic by EMS and was tachypneic upon arrival. Patient was placed on BiPAP and nitroglycerin drip in the emergency room and is started to improve. Patient was initially noted to be hypertensive with a blood pressure of 220 but subsequently improved after nitroglycerin drip and BiPAP currently blood pressures in the 160s to 170 range. Laboratory studies show a CBC of elevated white blood cell count of 24,000, hemoglobin of 13.1, hematocrit 38.9, platelets 22.7. BMP shows sodium 138, potassium 4.1, chloride 105, bicarb 22, BUN 27, creatinine 1.86, glucose 369, BN TP of 903.4. Chest x-ray shows small pleural effusions with pulmonary edema and possible infection. Will admit patient to ICU to continue BiPAP therapy initiated in the emergency room along with nitroglycerin drip. Will hold off initiation of antibiotic therapy due to more suspected flash pulmonary edema secondary to hypertension and heart failure. FORMERLY [facility], 1928–1983 Medical History Pneumonia COVID Wears glasses Wears dentures Insulin dependent diabetes mellitus Prostate disease Easy bruising Back pain Dietary restriction Smoker History of pain when walking History of stress test Cardiology follow-up encounter Hypertension Home Medications ?Medication ?Instructions ?Recorded ?Last Taken ?Type amlodipine 10 mg tablet (Norvasc) 10 mg PO 1200 08/05/21 08/12/21 History aspirin 81 mg tablet,delayed 81 mg PO DAILY 08/05/21 Unknown History release insulin glargine 100 unit/mL (3 15 unit subcut QPM 08/05/21 Unknown History mL) subcutaneous pen (Lantus Solostar U-100 Insulin) insulin lispro 100 unit/mL 0 unit subcut TID SLIDING SCALE 08/05/21 Unknown History subcutaneous pen tamsulosin 0.4 mg capsule (Flomax) 0.4 mg PO .COMPLEX urination 08/05/21 Unknown History ezetimibe 10 mg tablet 10 mg PO DAILY 04/06/24 Unknown History furosemide 20 mg tablet 20 mg PO BID 04/06/24 Unknown History lisinopril 5 mg tablet 5 mg PO DAILY 04/06/24 Unknown History metoprolol succinate 25 mg 25 mg PO DAILY 04/06/24 Unknown History tablet,extended release 24 hr blood sugar diagnostic (Contour 09/12/24 Unknown History Next Test Strips) Allergy/AdvReac Type Severity Reaction Status Date / Time Corticosteroids AdvReac Other Verified 04/06/24 14:38 (Glucocorticoids) (steroids) Ezsrrfo-[id number]-AzA Reductase AdvReac Other Verified 04/06/24 14:38 Inhibitor (Pypphpc-Rkb-Kjs Reductase Inhibitor) Surgical History Hx of cystoscopy Hx of colonoscopy Hx of left cataract extraction Hx of right cataract extraction Social History household members: spouse Smoking Status: Current every day smoker tobacco type: cigarettes alcohol intake: never ROS Constitutional Constitutional: Denies chills or fever(s) Eyes Eyes: Denies blurry vision ENT HEENT: Denies abnormal hearing Cardiovascular Cardiovascular: Denies chest pain Respiratory/Chest Respiratory/Chest: Reports cough and shortness of breath at rest; Denies wheezing Gastrointestinal Gastrointestinal: Denies abdominal pain Genitourinary Genitourinary: Denies dysuria Musculoskeletal Musculoskeletal: Denies back pain or extremity pain Integumentary Integumentary: Denies dry skin Neurologic Neurologic: Denies abnormal gait Psychiatric Psychiatric: Denies anxiety Vital Signs Vital Signs Vital Signs: 09/12/24 02:29 09/12/24 02:37 09/12/24 02:39 Temperature 97.6 F L 97.6 F L Temperature Source Axillary Axillary Pulse Rate 118 H 111 H Respiratory Rate 30 H 28 H Respiratory Effort Short of Breath Labored Accessory Muscle Use Respiratory Pattern Blood Pressure 237/99 H 237/99 H Blood Pressure Mean 145 145 Blood Pressure Source Blood Pressure Position Blood Pressure Location Pulse Ox 98 99 Oxygen Delivery Method Non-Rebreather Non-Rebreather Oxygen Flow Rate (L/min) 25 25 Fraction of Inspired Oxygen (FIO2) 09/12/24 02:45 09/12/24 02:47 09/12/24 03:02 Temperature Temperature Source Pulse Rate 117 H 109 H Respiratory Rate 28 H 24 H Respiratory Effort Respiratory Pattern Tachypnea Tachypnea Blood Pressure Blood Pressure Mean Blood Pressure Source Blood Pressure Position Blood Pressure Location Pulse Ox 92 94 Oxygen Delivery Method Room Air Oxygen Flow Rate (L/min) Fraction of Inspired Oxygen (FIO2) 40 09/12/24 03:26 09/12/24 03:37 09/12/24 03:40 Temperature 98.5 F Temperature Source Oral Pulse Rate 82 85 Respiratory Rate 27 H Respiratory Effort Respiratory Pattern Blood Pressure 204/91 H 203/69 H 203/69 H Blood Pressure Mean 128 113 113 Blood Pressure Source Monitor Monitor Blood Pressure Position Semi-Fowlers Semi-Fowlers Blood Pressure Location Left Arm Left Arm Pulse Ox 95 Oxygen Delivery Method Bi-pap Oxygen Flow Rate (L/min) Fraction of Inspired Oxygen (FIO2) 09/12/24 04:03 09/12/24 04:03 09/12/24 04:17 Temperature Temperature Source Pulse Rate 80 82 Respiratory Rate 18 24 H Respiratory Effort Respiratory Pattern Tachypnea Blood Pressure 190/80 H 190/80 H Blood Pressure Mean 116 116 Blood Pressure Source Monitor Blood Pressure Position Semi-Fowlers Blood Pressure Location Left Arm Pulse Ox 94 94 Oxygen Delivery Method Bi-pap Oxygen Flow Rate (L/min) Fraction of Inspired Oxygen (FIO2) 35 09/12/24 04:57 09/12/24 05:05 Temperature 98.5 F Temperature Source Pulse Rate 82 Respiratory Rate 24 H Respiratory Effort Respiratory Pattern Blood Pressure 179/82 H 179/82 H Blood Pressure Mean 114 114 Blood Pressure Source Monitor Blood Pressure Position Semi-Fowlers Blood Pressure Location Left Arm Pulse Ox 94 Oxygen Delivery Method Oxygen Flow Rate (L/min) Fraction of Inspired Oxygen (FIO2) Weight Weight: 151 lb 7.321 oz Body Mass Index (BMI) 23.7 Physical Exam Const alert and oriented x3 General Appearance: cooperative and well developed HEENT normocephalic and head/scalp atraumatic Eyes PERRL Neck no lymphadenopathy Lymph Lymphatic: no lymphadenopathy noted Resp Effort and Inspection: tachypneic and respiratory distress Auscultation: diminished lung sounds bilateral; Negative for rales, rhonchi or wheezes Cardio regular rate, regular rhythm, S1 normal heart sound, S2 normal heart sound, no rub and no gallops GI non-tender Extremity normal capillary refill Skin General Skin Exam: no breakdown Neuro no focal motor deficits and no sensory deficits noted Speech: speech normal Psych thought process normal Results Lab / Micro Data 09/12/24 02:40 09/12/24 02:40 Labs: Laboratory Results - last 24 hr 09/12/24 02:40: WBC 24.4 H, RBC 4.28 L, Hgb 13.1, Hct 38.9 L, MCV 90.9, MCH 30.6, MCHC 33.7, RDW Std Deviation 46.5 H, RDW Coeff of [place] 13.8, Plt Count 227, MPV 11.4, Immature Gran % (Auto) 0.800, Neut % (Auto) 80.8 H, Lymph % (Auto) 10.7 L, [place] % (Auto) 6.2, Eos % (Auto) 0.8, Baso % (Auto) 0.7, Absolute Neuts (auto) 19.7 H, Absolute Lymphs (auto) 2.62, Nucleated RBC % 0, PT 14.6, INR 1.1, APTT 35.1, Sodium 138, Potassium 4.1, Chloride 105, Carbon Dioxide 22.0, Anion Gap 11, BUN 27 H, Creatinine 1.86 H, Estim Creat Clear Calc 29.61, Est GFR (MDRD) Af Amer 45 L, Est GFR (MDRD) Non-Af 37 L, BUN/Creatinine Ratio 14.5, G lucose 369 H, Calcium 9.1, Magnesium 2.1, Troponin I High Sens 57, B-Natriuretic Peptide 903.4 H Imaging Radiology Impression Chest X-Ray 09/12/24 02:45 IMPRESSION: Bilateral interstitial and alveolar opacities especially in the lower lobes, with small pleural effusions. Findings may indicate edema and/or infection. Electronically Signed: Nacho Mabry MD at 3:29 EST , Assessment & Plan Assessment/Plan (1) Hypertensive emergency: (2) Flash pulmonary edema: (3) Acute hypoxemic respiratory failure: PLAN: Plan 1 acute hypoxic respiratory failure?admit patient to ICU, continue BiPAP therapy initiated in the emergency room. Will attempt to wean that off as patient tolerates. Repeat CBC, BMP in a.m. will hold off on starting antibiotic therapy at this time as it is suspected that the hypertension was the cause of the flash pulmonary edema 2. Hypertensive emergency?continue nitroglycerin drip initiated in the emergency room, continue routine home antihypertensive medications 3. Flash pulmonary edema?as above admit to ICU and will add Lasix 40 mg IV twice daily for diuresis. Patient has a known history of congestive heart failure and BN TP was elevated at 9 or 3. May consider adding echocardiogram during his hospitalization as patient improves. 4. DVT prophylaxis?will use SCDs as patient's creatinine is elevated at this time Charges/Coding Visit Charges Inpatient E&M: 88172 Init Hosp L2
--- NOTE | 2024-09-12 05:51 | ED.RN ---
Report called to [facility] [employer], questions/concerns answered
[2024-09-12 06:30] LABS: Troponin-I HS 205 pg/mL (3.0-78.0)
--- NOTE | 2024-09-12 07:09 | PCM.PN.HOSP ---
Reason for Visit Reason for Visit: Diagnoses Hypertensive emergency (09/12/24) Acute pulmonary edema (09/12/24) Acute respiratory failure with hypoxia (09/12/24) Subjective Subjective Patient is an 78-year-old gentleman with history of chronic hypoxic respiratory failure who presented with progressive shortness of breath. He was apparently found to be hypoxic saturating 72% on 3 L. An assessment of acute hypoxic respiratory failure made admitted to a monitored bed for further management. Objective Data Objective Data Vital Signs: Vital Signs Temp Pulse Resp BP Pulse Ox O2 Del Method O2 Flow Rate 98.8 F 99 23 H 123/80 H 93 Nasal Cannula 6 09/12/24 06:17 09/12/24 06:23 09/12/24 06:17 09/12/24 07:00 09/12/24 06:17 09/12/24 06:17 09/12/24 06:17 FiO2 35 09/12/24 04:17 Oxygen Flow Rate (L/min) 6 Oxygen Delivery Method Nasal Cannula Weight: 68.4 kg Body Mass Index (BMI) 23.6 Intake & Output: Intake and Output for Last 24 Hours 09/10/24 09/11/24 09/12/24 23:59 23:59 23:59 Intake Total 50.35 / 50.35 Balance 50.35 / 50.35 Lab / Micro Data 09/12/24 02:40 09/12/24 02:40 Labs: Laboratory Results - last 24 hr 09/12/24 02:40: WBC 24.4 H, RBC 4.28 L, Hgb 13.1, Hct 38.9 L, MCV 90.9, MCH 30.6, MCHC 33.7, RDW Std Deviation 46.5 H, RDW Coeff of [place]air[place] 13.8, Plt Count 227, MPV 11.4, Immature Gran % (Auto) 0.800, Neut % (Auto) 80.8 H, Lymph % (Auto) 10.7 L, [place] % (Auto) 6.2, Eos % (Auto) 0.8, Baso % (Auto) 0.7, Absolute Neuts (auto) 19.7 H, Absolute Lymphs (auto) 2.62, Nucleated RBC % 0, PT 14.6, INR 1.1, APTT 35.1, Sodium 138, Potassium 4.1, Chloride 105, Carbon Dioxide 22.0, Anion Gap 11, BUN 27 H, Creatinine 1.86 H, Estim Creat Clear Calc 29.61, Est GFR (MDRD) Af Amer 45 L, Est GFR (MDRD) Non-Af 37 L, BUN/Creatinine Ratio 14.5, Glucose 369 H, Calcium 9.1, Magnesium 2.1, Troponin I High Sens 57, B-Natriuretic Peptide 903.4 H 09/12/24 05:12: Troponin I High Sens 205 H* Radiography Diagnostic Testing: Radiology Impression Chest X-Ray 09/12/24 02:45 IMPRESSION: Bilateral interstitial and alveolar opacities especially in the lower lobes, with small pleural effusions. Findings may indicate edema and/or infection. Electronically Signed: Nacho Mabry MD at 3:29 EST , Physical Exam Narrative GENERAL: Dyspneic at rest HEENT: Atraumatic; normocephalic EYES; Anicteric, Normal Conjunctiva NECK; supple, normal thyroid, RESPIRATORY: Diminished to auscultation CARDIOVASCULAR: Regular S1 S2, tachycardic GI: soft, normoactive bowel sounds, : No Renal angle tenderness; EXTREMITIES: Bipedal edema, no clubbing, MUSCULOSKELETAL: no muscle wasting NEURO: Awake; no lateralizing signs. SKIN: No Rash PSYCH; Flat affect Assessment & Plan Assessment/Plan (1) Hypertensive emergency: (2) Flash pulmonary edema: (3) Acute hypoxemic respiratory failure: PLAN: Plan Patient is an 78-year-old gentleman with history of chronic hypoxic respiratory failure who presented with progressive shortness of breath. He was apparently found to be hypoxic saturating 72% on 3 L. An assessment of acute hypoxic respiratory failure made admitted to a monitored bed for further management. 1. Acute hypoxic respiratory failure ? Secondary to flash pulmonary edema. Patient was started on noninvasive ventilation via BiPAP admitted to the intensive care unit for further management 2. Acute congestive heart failure (unspecified) ? Imaging studies obtained on admission did show Bilateral interstitial and alveolar opacities especially in the lower lobes, with small pleural effusions. Patient presented with significant respiratory distress. Admitted to the intensive care unit started on strict input and output, daily weight, low-sodium diet, fluid restriction as well as IV diuretic therapy.2D echo ordered for EF assessment 3. Acute hypertensive emergency ? Patient blood pressure was as high as 227/99 was started on nitroglycerin drip admitted to the intensive care unit plan is to wean once blood pressure falls below 160 4. Diabetes mellitus type 2 ? Patient is on long-acting insulin with U-500 8 continue with home dose also placed on Accu-Cheks before meals and at bedtime with sliding scale coverage 5. BPH with lower urinary obstructive symptoms - Patient treated with tamsulosin 6. Chronic hypoxic respiratory failure ? Patient is on baseline home oxygen 7. Dyslipidemia ? Patient is on his Antiminth 10 mg daily continue 8. Chronic kidney disease stage IV ? Baseline creatinine has been fluctuating between 2-1.8. Creatinine on admission was 1.86 we will continue with monitoring with daily BMPs 9. Elevated troponin ? Thought to be secondary to demand ischemia from above 10. Leukocytosis ? Etiology unclear checks x-ray did not show any infiltrate;Will continue to monitor 11. Tobacco dependence ? Counseled on cessation, offered nicotine patch for tobacco cravings 12. DVT prophylaxis ? SC heparin Time spent in the patient's overall evaluation,decision-making process, review of diagnostic data, adjustment of management, discussion with other providers, nursing nursing and ancillary staff involved in patient's care documentation, 55 minutes Advance planning; did discuss with the patient and family regarding advanced directives as well as CODE STATUS. Did explain the various scenarios involved ( FULL CODE, DNR CCA, DNR CCA with no intubation, and DNR CC and what each meant) patient elected to to remain full code with CPR and intubation if needed. Order was placed. Time spent on discussion 16 minutes. Charges/Coding Multi Select Codes Visit Charges Visit Charges: 932[address] [facility] Hospitalists' Procedures Procedures: 29031 Advncd Care Plan 30 Min
--- NOTE | 2024-09-12 07:16 | ECHOD_ITS ---
Reason For Study: chf Procedure This was a 2D Doppler, Color Flow transthoracic echocardiogram. Exam performed portable in ICU/CCU. Left Ventricle Normal LV size. Left ventricular systolic function is normal. The left ventricular ejection fraction is 60 %. No regional wall motion abnormalities noted. Right Ventricle Normal RV size. Normal systolic function. Atria Normal left atrium. Normal right atrium. Mitral Valve There is moderate to severe mitral annular calcification. Mild (1+) eccentric mitral valve insufficiency. Tricuspid Valve Normal tricuspid valve. Mild to moderate (1-2+) tricuspid valve insufficiency. Pulmonary artery systolic pressure is 51 mmHg. Aortic Valve Trisinus/trileaflet aortic valve. Pulmonic Valve Normal pulmonic valve. Great Vessels Normal aortic root. The pulmonary artery is normal size. Inferior vena cava collapse with respiration. Pericardium/Pleural No pericardial effusion. MMode/2D Measurements & Calculations LVIDd: 4.9 cm IVSd: 0.95 cm LVOT diam: 2.0 cm LVIDs: 3.3 cm LVPWd: 0.83 cm LVOT area: 3.1 cm2 RVDd: 3.2 cm FS: 32.3 % LAV(MOD-bp): 67.3 ml LVAd ap4: 28.2 cm2 SV(MOD-sp4): 44.8 ml LAV(MOD-bp) Indexed: 37.6 ml/m2 LVLd ap4: 7.7 cm SI(MOD-sp4): 25.0 ml/m2 LAV(MOD-sp2): 66.7 ml EDV(MOD-sp4): 85.6 ml LAV(MOD-sp4): 67.0 ml EDV(sp4-el): 87.9 ml LVAs ap4: 17.7 cm2 LVLs ap4: 6.7 cm ESV(MOD-sp4): 40.8 ml ESV(sp4-el): 40.1 ml EF(MOD-sp4): 52.4 % EF(sp4-el): 54.4 % SV(sp4-el): 47.8 ml LA A4 area: 21.7 cm2 LA dimension(2D): 4.6 cm RA A4 area: 15.7 cm2 TAPSE: 2.6 cm Time Measurements MV dec time: 0.15 sec Doppler Measurements & Calculations MV E max tommy: 122.3 cm/sec Lat Peak E' Tommy: 10.2 cm/sec Med Peak E' Tommy: 6.6 cm/sec MV A max tommy: 141.6 cm/sec E/E' lat: 12.0 E/E' med: 18.4 MV E/A: 0.86 MV V2 max: 164.5 cm/sec MV P1/2t max tommy: 139.0 cm/sec Ao V2 max: 142.0 cm/sec MV max P.9 mmHg MV P1/2t: 55.2 msec Ao max P.1 mmHg MV V2 mean: 87.4 cm/sec Ao V2 mean: 102.7 cm/sec MV mean P.7 mmHg MV dec slope: 737.6 cm/sec2 Ao mean P.7 mmHg MV V2 VTI: 43.2 cm MVA(P1/2t): 4.0 cm2 Ao V2 VTI: 31.8 cm AV (velocity ratio): 0.81 MVA(VTI): 1.8 cm2 SORAIDA(I,D): 2.5 cm2 SORAIDA(V,D): 2.6 cm2 LV V1 max: 119.0 cm/sec MR max tommy: 499.9 cm/sec SV(LVOT): 79.4 ml LV V1 max P.7 mmHg MR max P.0 mmHg LV V1 mean P.4 mmHg LV V1 mean: 88.3 cm/sec LV V1 VTI: 25.7 cm PA V2 max: 137.0 cm/sec TR max tommy: 347.7 cm/sec TR max P.4 mmHg ECHO/Echo Complete Interpretation Summary Normal LV size. Left ventricular systolic function is normal. The left ventricular ejection fraction is 60 %. There is moderate to severe mitral annular calcification. Pulmonary artery systolic pressure is 51 mmHg. Ordering Physician: Tj Bhatt Performed By: Girish Hull RCS
--- NOTE | 2024-09-12 07:16 | US_ITS ---
STUDY: RENAL ULTRASOUND - COMPLETE REASON FOR EXAM: Male, 78 years old. Renal failure TECHNIQUE: Ultrasound evaluation of the kidneys was performed with real-time and static chavez-scale imaging. COMPARISON: None. FINDINGS: RIGHT KIDNEY: with mild renal atrophy. The right kidney measures 7.7 cm x 4.3 cm x 4.2 cm. There is increased echotexture of the cortex of the right kidney. This most likely secondary to chronic medical renal disease. The renal cortex measures 1.0 cm. There is no right renal mass or cyst. There are no right renal calculi. There is no right hydronephrosis. DISTAL RIGHT URETER: There is non-visualization of the distal right ureter. There is no demonstrated right ureterovesical junction calculus. There is a visualized right ureteral jet. LEFT KIDNEY: Normal location of the left kidney, which is normal in size. The left kidney measures 9.6 cm x 4.9 cm x 5.5 cm. There is a normal cortex of the left kidney. The renal cortex measures 1 cm. There is no left renal mass or cyst. Findings suggestive of a 2.8 mm calculus in the midpole. There is no left hydronephrosis. DISTAL LEFT URETER: There is non-visualization of the distal left ureter. There is no demonstrated left ureterovesical junction calculus. There is a visualized left ureteral jet. BLADDER: The distended urinary bladder has a volume of 572 ml. There is a normal wall thickness of the distended urinary bladder. There is no demonstrated mass within the urinary bladder. There are no demonstrated bladder calculi. Heterogeneous enlargement of the prostate with calcifications. US/Kidney and Bladder IMPRESSION: Right renal atrophy. Small nonobstructive left intrarenal calculus. Electronically Signed: Dharmesh Barros MD at 12:57 EST ,
[2024-09-12 08:33] LABS: Bedside Glucose 377 mg/dL (74-106)
[2024-09-12] MEDS: Insulin Lispro 100 UNIT/ML INSULN.PEN SC ×2 (08:36→11:50)
[2024-09-12] MEDS: Ezetimibe 10 MG Tablet PO (08:57)
[2024-09-12] MEDS: Tamsulosin HCl 0.4 MG Capsule PO (08:57)
[2024-09-12] MEDS: Aspirin E.C. 81 MG Tablet PO (08:57)
[2024-09-12] MEDS: 0.9% Saline Lock 10 ML Syringe IV ×2 (08:57→16:56)
[2024-09-12] MEDS: Metoprolol(XL)Succ 25 MG Tablet PO (08:57)
[2024-09-12] MEDS: Lisinopril 5 MG Tablet PO (08:59)
[2024-09-12 09:20] LABS: Troponin-I HS 346 pg/mL (3.0-78.0)
[2024-09-12] MEDS: Heparin Injection (Vial) 5,000 UNIT/ML VIAL 5000 UNIT SC ×2 (10:03→21:28)
[2024-09-12] MEDS: Furosemide 40 MG/4 ML Vial IV ×2 (10:03→16:56)
[2024-09-12] MEDS: hydrALAZINE 25 MG Tablet PO ×3 (10:03→21:27)
--- NOTE | 2024-09-12 11:05 | CASEMGMT ---
FIDEL VALENCIA Assessment Face to Face with patient for initial transition planning/care coordination assessment. FIDEL VALENCIA introduced self and role at [facility], pt voices understanding. Pt is A&Ox4 and is resting comfortably in bed and is calm. Care providers, pharmacy, and demographics verified. Admitting dx: HTN, Pulmonary Edema LACE Strata: 1 PCP: Ryley Montenegro Specialists: Isaiah (Ortho), Endocrinology through [facility] Pharmacy: [facility] Insurance: [facility] Prescription Benefit: Yes LNOK: Alice Fernandes (W), Karoline Kumar (EWA) Living Arrangements: Pt lives with his in a single story home with 2 steps to enter ADLs/IADLs: Pt reports that he is independent but does have some hip and back pain that he deals with. There is no current 6-click score entered or therapy ordered. Pt denies needs at this time. Transportation: Self, . DME: Home oxygen through [facility]. Pt states that he only uses this as needed and does not know what his current order states. Pt has a concentrator and a pulse ox. Pt states that her returned the portable tanks. E-Mail sent to [email or web address] to verify current Rx. Pt also reports that he has a BGM with sufficient supplies. Walker. Cane. BP Monitor. Walk-in shower with grab bars and a built in seat. HHC/SNF: Denies history or needs. Pt has been to for OP therapy in the past Pt?s goal: Home Plan: Home, follow oxygen needs. At this time, the pt states that he plans to return home with his and that he does not need or want HH, OP Tx, CCN, or Pt Link. Pt denies further questions or concerns at this time. CM to follow. Britton Browne RN, CM
[2024-09-12] MEDS: amLODIPine 10 MG Tablet PO (11:51)
[2024-09-12 12:20] LABS: Bedside Glucose 398 mg/dL (74-106)
[2024-09-12 16:24] LABS: Bedside Glucose 122 mg/dL (74-106)
[2024-09-12] MEDS: Glucerna Shake 120 ML LIQUID PO (16:55)
--- NOTE | 2024-09-12 17:03 | RDU_ITS ---
Reason For Study: Accelerated hypertension Right Renal Artery Left Renal Artery Right renal artery ostium Left renal artery ostium 118.2/17 122.7/17.3 RSV/EDV. PSV/EDV. Right renal artery proximal Left renal artery proximal PSV/EDV 83.2/19.5 PSV/EDV. 107.4/12.6 . Right renal artery mid 89.8/21.7 Left renal artery mid 109.2/18.1 PSV/EDV. PSV/EDV . Right renal artery distal 64.4/15.8 Left renal artery distal 87.6/17.3 PSV/EDV. PSV/EDV. Right Renal Parenchyma Left Renal Parenchyma Upper Pole Medula 41.9/8.1 PSV/EDV. Left upper pole medulla 26.9/5.6 Right upper pole medulla EDR 0.2 . PSV/EDV . Right upper pole medulla R.I. Left upper pole medulla EDR 0.2 . 0.81 . Left upper pole medulla R.I. 0.79 . Upper Justin Cortx 18.3/3.4 PSV/EDV. UP Cortex 11.3/4.2 PSV/EDV. Right upper pole cortex EDR 0.2 . Left upper pole cortex EDR 0.4 . Right upper pole cortex R.I. 0.81 . Left upper pole cortex R.I. 0.63 . Right lower Pole medulla 23.9/4.8 Left lower Pole medulla 29.7/8 PSV/EDV . PSV/EDV . Right lower pole medulla EDR 0.2 . Left lower pole medulla EDR 0.3 . Right lower pole medulla R.I. Left lower pole medulla R.I. 0.73 . 0.80 . Lower Pole Cortx 20.7/4.7 PSV/EDV. Lower Pole Cortex 15.2/4.3 PSV/EDV. Left lower pole cortex EDR 0.2 . Right lower pole cortex EDR 0.3 . Left lower pole cortex R.I. 0.77 . Right lower pole cortex R.I. 0.72 . Left Renal Hilar Right Renal Hilar LT Hilar avg 162.2/32.7 PSV/EDV . Right Hilar avg 50.7/10.9 PSV/EDV. Left hilar acceleration time 70 Right hilar acceleration time 130 m/sec. m/sec. Left Renal Dimensions Right Renal Dimensions Left kidney size 9.46 cm . Right kidney size 8.24 cm . Left cortical dimension 127 cm . Right cortical dimension 1.19 cm . Aorta Proximal abdominal aorta 1.6 x 1.6 cm . Proximal abdominal aorta peak systolic velocity is 193.4 cm/sec . Distal abdominal aorta 1.54 x 1.55 cm . Distal abdominal aorta peak systolic velocity is 257.3 cm/sec . Procedures Technically difficult study. VL/Renal Artery Duplex Ultrasound Interpretation Summary Right renal artery patent with normal velocities and no evidence of stenosis. Left renal artery patent with normal velocities and no evidence of stenosis. Right renal vein patent. Left renal vein patent. Right kidney diminshed in size. Left kidney normal in size. Ordering Physician: Tj Bhatt Referring Physician: Ryley Montenegro Performed By: Geni Mcgowan RVT and Student
[2024-09-12] MEDS: Insulin Glargine-YFGN 100 UNIT/ML Pen 15 UNIT SC (21:27)
[2024-09-12] MEDS: Metoprolol(XL)Succ 50 MG Tablet PO (21:28)
[2024-09-12 21:49] LABS: Bedside Glucose 202 mg/dL (74-106)
[2024-09-13] VITALS (22 sets, daily range): BP systolic 93–151; BP diastolic 52–112; PULSE 67–87; RESP 16–21; TEMP 36.6–37.1; O2SAT 93–98; BMI 22.8
[2024-09-13] MEDS: hydrALAZINE 25 MG Tablet PO ×3 (05:05→21:12)
[2024-09-13] MEDS: 0.9% Saline Lock 10 ML Syringe IV ×3 (05:05→17:22)
[2024-09-13 05:15] LABS: Absolute Lymphocyte Count 2.32 X10^3/uL (0.83-4.51); Absolute Neutrophil Count 7.4 X10^3/uL (2.0-7.7); Basophil# 0.09 X10^3/uL; Basophil% 0.8 % (0-1); Eosinophil# 0.14 X10^3/uL; Eosinophils% 1.3 % (0-5); Hematocrit 30.7 % (40-54); Hemoglobin 10.4 g/dL (13.0-16.5); Lymphocyte # 2.32 X10^3/ul (0.83-4.51); Lymphocyte % 21.2 % (19-41); Mean Corp Hgb Conc 33.9 g/dL (32-36); Mean Corpuscular Hgb 30.6 pg (27.0-32.0); Mean Corpuscular Volume 90.3 fL (80-94); Mean Platelet Vol. 11.4 fl (6.2-12.0); Monocyte# 1.02 X10^3/uL; Monocyte% 9.3 % (0-10); NRBC Flagged by Analyzer 0 % (0-5); Neutrophil # 7.35 X10^3/uL (2.7-7.7); Platelet Count 168 K/mm3 (150-450); RBC Distribution Width CV 13.8 % (11.6-14.6); RBC Distribution Width SD 45.1 fl (35.1-43.9)
[2024-09-13 05:37] LABS: Anion Gap 7 (5-15); BUN 31 mg/dL (7-18); BUN/Creat Ratio 17.4 RATIO (10-20); Calcium,Total 8.7 mg/dL (8.5-10.1); Chloride 105 mmol/L (98-107); Creatinine, Serum 1.78 mg/dL (0.70-1.30); EST Glomerular Filtration Rate 39 mL/min (>60); Est Glom Filt Rate - Afr Amer 47 mL/min (>60); Estimated Creatinine Clearance 30.95 ml/min; Glucose 138 mg/dL (74-106); Phosphorus 3.2 mg/dL (2.5-4.9); Potassium 3.4 mmol/L (3.5-5.1); Sodium Level 140 mmol/L (136-145)
--- NOTE | 2024-09-13 07:58 | PN.HOSP_ITS ---
Reason for Visit Reason for Visit: Diagnoses Hypertensive emergency (09/12/24) Acute pulmonary edema (09/12/24) Acute respiratory failure with hypoxia (09/12/24) Subjective Subjective Patient seen, nitroglycerin was weaned off the day prior. Currently on 4 L flow of oxygen. Scheduled to undergo renal artery duplex Objective Data Objective Data Vital Signs: Vital Signs Temp Pulse Resp BP Pulse Ox O2 Del Method O2 Flow Rate 98.8 F 79 16 129/65 H 95 Nasal Cannula 4 09/13/24 04:00 09/13/24 07:00 09/13/24 07:00 09/13/24 07:00 09/13/24 07:00 09/13/24 07:00 09/13/24 07:00 FiO2 35 09/12/24 04:17 Oxygen Flow Rate (L/min) 4 Oxygen Delivery Method Nasal Cannula Weight: 66.2 kg Body Mass Index (BMI) 22.8 Intake & Output: Intake and Output for Last 24 Hours 09/11/24 09/12/24 09/13/24 23:59 23:59 23:59 Intake Total 932.10 / 932.10 0 / 0 Output Total 2750 / 2750 250 / 250 Balance -1817.90 / -1817.90 -250 / -250 Lab / Micro Data 09/13/24 05:05 09/13/24 05:05 Labs: Laboratory Results - last 24 hr 09/12/24 08:15: POC Glucose 377 H 09/12/24 08:45: Troponin I High Sens 346 H* 09/12/24 11:49: POC Glucose 398 H 09/12/24 16:04: POC Glucose 122 H 09/12/24 21:25: POC Glucose 202 H 09/13/24 05:05: WBC 11.0, RBC 3.40 L, Hgb 10.4 L, Hct 30.7 L, MCV 90.3, MCH 30.6, MCHC 33.9, RDW Std Deviation 45.1 H, RDW Coeff of [place] 13.8, Plt Count 168, MPV 11.4, Immature Gran % (Auto) 0.400, Neut % (Auto) 67.0, Lymph % (Auto) 21.2, [place] % (Auto) 9.3, Eos % (Auto) 1.3, Baso % (Auto) 0.8, Absolute Neuts (auto) 7.4, Absolute Lymphs (auto) 2.32, Nucleated RBC % 0, Sodium 140, Potassium 3.4 L , Chloride 105, Carbon Dioxide 28.0, Anion Gap 7, BUN 31 H, Creatinine 1.78 H, Estim Creat Clear Calc 30.95, Est GFR (MDRD) Af Amer 47 L, Est GFR (MDRD) Non-Af 39 L, BUN/Creatinine Ratio 17.4, Glucose 138 H, Calcium 8.7, Phosphorus 3.2, Magnesium 2.0 Radiography Diagnostic Testing: Radiology Impression Echocardiogram 09/12/24 07:16 Interpretation Summary Normal LV size. Left ventricular systolic function is normal. The left ventricular ejection fraction is 60 %. There is moderate to severe mitral annular calcification. Pulmonary artery systolic pressure is 51 mmHg. Ordering Physician: Tj Bhatt Performed By: Girish Hull RCS Renal Ultrasound 09/12/24 07:16 IMPRESSION: Right renal atrophy. Small nonobstructive left intrarenal calculus. Electronically Signed: Dharmesh Barros MD at 12:57 EST , Physical Exam Narrative GENERAL: Cooperative HEENT: Atraumatic; normocephalic EYES; Anicteric, Normal Conjunctiva NECK; supple, normal thyroid, RESPIRATORY: Diminished to auscultation CARDIOVASCULAR: Regular S1 S2, tachycardic GI: soft, normoactive bowel sounds, : No Renal angle tenderness; EXTREMITIES: Bipedal edema, no clubbing, MUSCULOSKELETAL: no muscle wasting NEURO: Awake; no lateralizing signs. SKIN: No Rash PSYCH; Flat affect Assessment & Plan Assessment/Plan (1) Hypertensive emergency: (2) Flash pulmonary edema: (3) Acute hypoxemic respiratory failure: PLAN: Plan Patient is an 78-year-old gentleman with history of chronic hypoxic respiratory failure who presented with progressive shortness of breath. He was apparently found to be hypoxic saturating 72% on 3 L. An assessment of acute hypoxic respiratory failure made admitted to a monitored bed for further management. 1. Acute hypoxic respiratory failure ? Secondary to flash pulmonary edema. Patient was started on noninvasive ventilation via BiPAP admitted to the intensive care unit for further management ? 09/13/2024 patient has been weaned off BiPAP placed on supplemental oxygen 2. Acute congestive heart failure (unspecified) ? Imaging studies obtained on admission did show Bilateral interstitial and alveolar opacities especially in the lower lobes, with small pleural effusions. Patient presented with significant respiratory distress. Admitted to the intensive care unit started on strict input and output, daily weight, low-sodium diet, fluid restriction as well as IV diuretic therapy.2D echo ordered for EF assessment ? 09/13/2024; 2D echo demonstrated Left ventricular systolic function is normal. The left ventricular ejection fraction is 60 %. There is moderate to severe mitral annular calcification. Pulmonary artery systolic pressure is 51 mmHg. 3. Acute hypertensive emergency ? Patient blood pressure was as high as 227/99 was started on nitroglycerin drip admitted to the intensive care unit plan is to wean once blood pressure falls below 160 ? 09/13/2024; patient has been weaned off nitro. Patient to undergo further evaluation with a renal artery duplex to rule out renal artery stenosis 4. Diabetes mellitus type 2 ? Patient is on long-acting insulin with U-500 8 continue with home dose also placed on Accu-Cheks before meals and at bedtime with sliding scale coverage 5. BPH with lower urinary obstructive symptoms - Patient treated with tamsulosin 6. Chronic hypoxic respiratory failure ? Patient is on baseline home oxygen 7. Dyslipidemia ? Patient is on his Antiminth 10 mg daily continue 8. Chronic kidney disease stage IV ? Baseline creatinine has been fluctuating between 2-1.8. Creatinine on admission was 1.86 we will continue with monitoring with daily BMPs 9. Elevated troponin ? Thought to be secondary to demand ischemia from above 10. Leukocytosis ? Etiology unclear checks x-ray did not show any infiltrate;Will continue to monitor 11. Tobacco dependence ? Counseled on cessation, offered nicotine patch for tobacco cravings 12. DVT prophylaxis ? SC heparin Time spent in the patient's overall evaluation,decision-making process, review of diagnostic data, adjustment of management, discussion with other providers, nursing nursing and ancillary staff involved in patient's care documentation, 50 minutes Charges/Coding Visit Charges Inpatient E&M: 69561 Subs Hosp L3
[2024-09-13 08:51] LABS: Bedside Glucose 126 mg/dL (74-106)
[2024-09-13] MEDS: Potassium Chloride Oral Tablet 20 MEQ PO ×2 (09:12→16:19)
[2024-09-13] MEDS: Glucerna Shake 120 ML LIQUID PO ×2 (09:12→16:19)
[2024-09-13] MEDS: Metoprolol(XL)Succ 50 MG Tablet PO ×2 (09:13→21:12)
[2024-09-13] MEDS: Aspirin E.C. 81 MG Tablet PO (09:13)
[2024-09-13] MEDS: Heparin Injection (Vial) 5,000 UNIT/ML VIAL 5000 UNIT SC ×2 (09:13→21:12)
[2024-09-13] MEDS: Furosemide 40 MG/4 ML Vial IV ×2 (09:13→17:22)
[2024-09-13] MEDS: Ezetimibe 10 MG Tablet PO (09:14)
[2024-09-13] MEDS: Insulin Lispro 100 UNIT/ML INSULN.PEN SC ×2 (12:18→16:19)
[2024-09-13] MEDS: amLODIPine 10 MG Tablet PO (12:18)
[2024-09-13] MEDS: Lisinopril 5 MG Tablet PO (12:18)
[2024-09-13 12:41] LABS: Bedside Glucose 238 mg/dL (74-106)
[2024-09-13 13:30] LABS: Bedside Glucose 234 mg/dL (74-106)
[2024-09-13 16:42] LABS: Bedside Glucose 179 mg/dL (74-106)
[2024-09-13] MEDS: Insulin Glargine-YFGN 100 UNIT/ML Pen 15 UNIT SC (21:11)
[2024-09-13 21:34] LABS: Bedside Glucose 281 mg/dL (74-106)
[2024-09-14] VITALS (8 sets, daily range): BP systolic 107–191; BP diastolic 62–94; PULSE 63–83; RESP 17–19; TEMP 36.8–36.9; O2SAT 93–95; BMI 22.7
[2024-09-14] MEDS: hydrALAZINE 25 MG Tablet PO (05:03)
[2024-09-14 05:17] LABS: Absolute Lymphocyte Count 1.66 X10^3/uL (0.83-4.51); Absolute Neutrophil Count 7.6 X10^3/uL (2.0-7.7); Basophil% 0.9 % (0-1); Eosinophil# 0.23 X10^3/uL; Eosinophils% 2.2 % (0-5); Hematocrit 32.8 % (40-54); Hemoglobin 11.1 g/dL (13.0-16.5); Lymphocyte # 1.66 X10^3/ul (0.83-4.51); Lymphocyte % 15.7 % (19-41); Mean Corp Hgb Conc 33.8 g/dL (32-36); Mean Corpuscular Hgb 30.7 pg (27.0-32.0); Mean Corpuscular Volume 90.6 fL (80-94); Mean Platelet Vol. 11.9 fl (6.2-12.0); Monocyte# 0.95 X10^3/uL; NRBC Flagged by Analyzer 0 % (0-5); Neutrophil # 7.57 X10^3/uL (2.7-7.7); Neutrophil % 71.9 % (47-70); Platelet Count 186 K/mm3 (150-450); RBC Distribution Width CV 13.4 % (11.6-14.6); RBC Distribution Width SD 44.5 fl (35.1-43.9); Red Blood Count 3.62 M/mm3 (4.6-6.2); White Blood Count 10.5 K/mm3 (4.4-11.0)
[2024-09-14 05:34] LABS: Anion Gap 7 (5-15); BUN 42 mg/dL (7-18); BUN/Creat Ratio 21.4 RATIO (10-20); Calcium,Total 8.7 mg/dL (8.5-10.1); Chloride 104 mmol/L (98-107); Creatinine, Serum 1.96 mg/dL (0.70-1.30); EST Glomerular Filtration Rate 35 mL/min (>60); Est Glom Filt Rate - Afr Amer 43 mL/min (>60); Estimated Creatinine Clearance 28.02 ml/min; Glucose 292 mg/dL (74-106); Sodium Level 135 mmol/L (136-145)
--- NOTE | 2024-09-14 07:38 | PCM.DC.SUM ---
Providers Date of Admission: 09/12/24 Date of Discharge: 09/14/24 Primary Care Physician: Ryley Montenegro MD Reason For Visit: HYPERTENSIVE EMERGENCY-PULMONARY EDEMA Diagnosis Discharge Diagnosis (1) Hypertensive emergency: Status: Acute Code(s): I16.1 - Hypertensive emergency (2) Flash pulmonary edema: Status: Acute Code(s): J81.0 - Acute pulmonary edema (3) Acute hypoxemic respiratory failure: Status: Acute Code(s): J96.01 - Acute respiratory failure with hypoxia Plan Patient is an 78-year-old gentleman with history of chronic hypoxic respiratory failure who presented with progressive shortness of breath. He was apparently found to be hypoxic saturating 72% on 3 L. An assessment of acute hypoxic respiratory failure made admitted to a monitored bed for further management. 1. Acute hypoxic respiratory failure ? Secondary to flash pulmonary edema. Patient was started on noninvasive ventilation via BiPAP admitted to the intensive care unit for further management ? 09/13/2024 patient has been weaned off BiPAP placed on supplemental oxygen 2. Acute congestive heart failure with preserved ejection fraction ? Imaging studies obtained on admission did show Bilateral interstitial and alveolar opacities especially in the lower lobes, with small pleural effusions. Patient presented with significant respiratory distress. Admitted to the intensive care unit started on strict input and output, daily weight, low-sodium diet, fluid restriction as well as IV diuretic therapy.2D echo ordered for EF assessment ? 09/13/2024; 2D echo demonstrated Left ventricular systolic function is normal. The left ventricular ejection fraction is 60 %. There is moderate to severe mitral annular calcification. Pulmonary artery systolic pressure is 51 mmHg. ? 09/14/2024 patient was discharged on furosemide 40 mg p.o. twice daily 3. Acute hypertensive emergency ? Patient blood pressure was as high as 227/99 was started on nitroglycerin drip admitted to the intensive care unit plan is to wean once blood pressure falls below 160 ? 09/13/2024; patient has been weaned off nitro. Patient to undergo further evaluation with a renal artery duplex to rule out renal artery stenosis ? 09/14/2024; ultrasound was negative for renal artery stenosis patient was discharged with addition of hydralazine 50 mg twice daily to his antihypertensive regimen 4. Diabetes mellitus type 2 ? Patient is on long-acting insulin with U-500 8 continue with home dose also placed on Accu-Cheks before meals and at bedtime with sliding scale coverage 5. BPH with lower urinary obstructive symptoms - Patient treated with tamsulosin 6. Chronic hypoxic respiratory failure ? Patient is on baseline home oxygen 7. Dyslipidemia ? Patient is on his Antiminth 10 mg daily continue 8. Chronic kidney disease stage IV ? Baseline creatinine has been fluctuating between 2-1.8. Creatinine on admission was 1.86 we will continue with monitoring with daily BMPs 9. Elevated troponin ? Thought to be secondary to demand ischemia from above 10. Leukocytosis ? Etiology unclear checks x-ray did not show any infiltrate;Will continue to monitor 11. Tobacco dependence ? Counseled on cessation, offered nicotine patch for tobacco cravings 12. DVT prophylaxis ? SC heparin Time spent in the patient's overall evaluation,decision-making process, review of diagnostic data, adjustment of management, discussion with other providers, nursing nursing and ancillary staff involved in patient's care documentation, 35 minutes Medications at Discharge Home Medications amlodipine 10 mg tablet (Norvasc) 10 mg PO 1200 08/05/21 aspirin 81 mg tablet,delayed release 81 mg PO DAILY 08/05/21 insulin glargine 100 unit/mL (3 mL) subcutaneous pen (Lantus Solostar U-100 Insulin) 15 unit subcut QPM 08/05/21 insulin lispro 100 unit/mL subcutaneous pen 0 unit subcut TID SLIDING SCALE 08/05/21 tamsulosin 0.4 mg capsule (Flomax) 0.4 mg PO .COMPLEX urination 08/05/21 ezetimibe 10 mg tablet 10 mg PO DAILY 04/06/24 lisinopril 5 mg tablet 5 mg PO DAILY 04/06/24 metoprolol succinate 25 mg tablet,extended release 24 hr 25 mg PO DAILY 04/06/24 blood sugar diagnostic (Contour Next Test Strips) 09/12/24 furosemide 40 mg tablet (Lasix) 40 mg PO BID #120 tabs 09/14/24 hydralazine 50 mg tablet 50 mg PO BID 60 days #120 tabs 09/14/24 potassium chloride 20 mEq tablet,extended release(part/cryst) 20 meq PO BIDCM 30 days #60 tabs 09/14/24 Physical Exam Narrative GENERAL: Cooperative HEENT: Atraumatic; normocephalic EYES; Anicteric, Normal Conjunctiva NECK; supple, normal thyroid, RESPIRATORY: Diminished to auscultation CARDIOVASCULAR: Regular S1 S2, tachycardic GI: soft, normoactive bowel sounds, : No Renal angle tenderness; EXTREMITIES: Bipedal edema, no clubbing, MUSCULOSKELETAL: no muscle wasting NEURO: Awake; no lateralizing signs. SKIN: No Rash PSYCH; Flat affect Weight / BMI Weight Weight: 65.9 kg Body Mass Index (BMI) 22.7 ABG / Lab / Microbiology Data 09/14/24 05:05 09/14/24 05:05 Laboratory: Laboratory Results - last 24 hr 09/13/24 08:33: POC Glucose 126 H 09/13/24 12:17: POC Glucose 238 H 09/13/24 13:13: POC Glucose 234 H 09/13/24 16:19: POC Glucose 179 H 09/13/24 21:10: POC Glucose 281 H 09/14/24 05:05: WBC 10.5, RBC 3.62 L, Hgb 11.1 L, Hct 32.8 L, MCV 90.6, MCH 30.7, MCHC 33.8, RDW Std Deviation 44.5 H, RDW Coeff of [place] 13.4, Plt Count 186, MPV 11.9, Immature Gran % (Auto) 0.300, Neut % (Auto) 71.9 H, Lymph % (Auto) 15.7 L, [place] % (Auto) 9.0, Eos % (Auto) 2.2, Baso % (Auto) 0.9, Absolute Neuts (auto) 7.6, Absolute Lymphs (auto) 1.66, Nucleated RBC % 0, Sodium 135 L, Potassium 4.0, Chloride 104, Carbon Dioxide 24.0, Anion Gap 7, BUN 42 H, Creatinine 1.96 H, Estim Creat Clear Calc 28.02, Est GFR (MDRD) Af Amer 43 L, Est GFR (MDRD) Non-Af 35 L, BUN/Creatinine Ratio 21.4 H, Glucose 292 H, Calcium 8.7 Radiography Diagnostic Testing: Radiology Impression Renal Artery Duplex 09/12/24 17:03 Interpretation Summary Right renal artery patent with normal velocities and no evidence of stenosis. Left renal artery patent with normal velocities and no evidence of stenosis. Right renal vein patent. Left renal vein patent. Right kidney diminshed in size. Left kidney normal in size. Ordering Physician: Tj Bhatt Referring Physician: Ryley Montenegro Performed By: Geni Mcgowan RVT and Student D/C Instructions Discharge Diet: 1800 Calorie Control Diet, 8 Cup Fluid Restriction and 2000 mg Sodium Diet Discharge Activity: Return to Normal Activity Call your doctor if you observe: Fever of 101 or Higher, Shortness of breath, Fainting spells and Chest pain Meaningful Use Info Meaningful Use Meaningful Use Diagnoses (Choose all that apply): CHF CHF PASCALE/ARB ordered at discharge?: Yes Documented LVEF (%): 60 Ischemic Stroke Statin Dosing Therapy Reference: STATIN DOSE THERAPY REFERENCE: * Patients > 75 years receive moderate or high dose statin therapy. * Patients 75 years or YOUNGER should receive HIGH intensity statin dose unless contraindicated. You will be required to document reason for non-treatment if statin daily dose does not meet guidelines. HIGH DOSE STATIN THERAPY DAILY Atorvastatin > than or = to 40 mg Rosuvastatin > than or = to 20 mg Amlodipine + Atorvastatin > than or = to 2.5/40 mg Ezetimibe + Simvastatin 10/80 mg Simvastatin 80mg Discharge Plan Admission Admit Date/Time: 09/12/24 05:21 Attending Provider: Tj Bhatt Primary Care Provider: Ryley Montenegro Consulting Providers: Young Koroma Discharge Orders/Prescriptions Prescriptions: New potassium chloride 20 mEq Tablet,Er Particles/Crystals 20 meq PO BIDCM 30 Days Qty: 60 0RF hydralazine 50 mg tablet 50 mg PO BID 60 Days Qty: 120 0RF furosemide [Lasix] 40 mg tablet 40 mg PO BID Qty: 120 0RF Continued lisinopril 5 mg tablet 5 mg PO DAILY metoprolol succinate 25 mg tablet extended release 24 hr 25 mg PO DAILY ezetimibe 10 mg tablet 10 mg PO DAILY aspirin 81 mg Tablet,Delayed Release (Dr/Ec) 81 mg PO DAILY tamsulosin [Flomax] 0.4 mg Capsule 0.4 mg PO .COMPLEX Rx Instructions: 0.4 mg orally 3x/week; Takes on //SAT; amlodipine [Norvasc] 10 mg Tablet 10 mg PO 1200 insulin lispro 100 unit/mL Insulin Pen 0 unit SUBCUT TID insulin glargine [Lantus Solostar U-100 Insulin] 100 unit/mL (3 mL) Insulin Pen 15 unit SUBCUT QPM (DME) Contour Next Test Strips Strip MISCELLANEOUS 4X/DAY Discontinued furosemide 20 mg tablet 20 mg PO BID Referrals / Follow Up: Ryley Montenegro MD [Primary Care Provider] - Within 1 Week Disposition Disposition (needs filled in before D/C Order can be placed): Home, Self Care Charges/Coding Visit Charges Inpatient E&M: 78917 Disch Hosp >30min
[2024-09-14] MEDS: Aspirin E.C. 81 MG Tablet PO (07:52)
[2024-09-14] MEDS: Insulin Lispro 100 UNIT/ML INSULN.PEN SC (07:52)
[2024-09-14] MEDS: Lisinopril 5 MG Tablet PO (07:53)
[2024-09-14] MEDS: Potassium Chloride Oral Tablet 20 MEQ PO (07:53)
[2024-09-14] MEDS: Furosemide 40 MG/4 ML Vial IV (07:53)
[2024-09-14] MEDS: Tamsulosin HCl 0.4 MG Capsule PO (07:53)
[2024-09-14] MEDS: Metoprolol(XL)Succ 50 MG Tablet PO (07:54)
[2024-09-14] MEDS: Ezetimibe 10 MG Tablet PO (07:55)
[2024-09-14 08:20] LABS: Bedside Glucose 276 mg/dL (74-106)
== END 2024-09-14 09:15 | disposition home or self-care (01) | DRG 304 ==
LOC: ED 04:50 → ICU 05:15
PROVIDERS: Admitting Provider Family Medicine; Emergency Provider Emergency Medicine; PCP Family Medicine; Visit Provider Internal Medicine
DX: I16.1 Hypertensive emergency (principal); J96.21 Acute and chronic respiratory failure with hypoxia; I50.31 Acute diastolic (congestive) heart failure; J81.0 Acute pulmonary edema; I24.89 Other forms of acute ischemic heart disease; N13.8 Other obstructive and reflux uropathy; N18.4 Chronic kidney disease, stage 4 (severe); E11.22 Type 2 diabetes mellitus with diabetic chronic kidney disease; D72.829 Elevated white blood cell count, unspecified; I13.0 Hypertensive heart and chronic kidney disease with heart failure and stage 1 through stage 4 chronic kidney disease, or unspecified chronic kidney disease; Z79.4 Long term (current) use of insulin; F17.210 Nicotine dependence, cigarettes, uncomplicated; E78.5 Hyperlipidemia, unspecified; N40.1 Benign prostatic hyperplasia with lower urinary tract symptoms; I49.1 Atrial premature depolarization; Z86.16 Personal history of COVID-19; Z87.01 Personal history of pneumonia (recurrent); Z79.82 Long term (current) use of aspirin; Z79.899 Other long term (current) drug therapy
CPT/HCPCS: 71045; 76770; 80048; 82962; 83735; 83880; 84100; 84484; 85025; 85610; 85730; 93005; 93306; 93975; 94002; 94640; 94762; 97162; 97166; 97802; 99285; A4216; J1940

== ENCOUNTER → 2024-09-21 | Outpatient (CLI) | payer MEDICARE, SELFPAY ==
[2024-09-21 18:20] LABS: Cholesterol 148 mg/dL (200); High Density Lipoprotein 49 mg/dL; Triglycerides 58 mg/dL; Very Low Density Lipoprotein 12 mg/dL (5-40)
== END | disposition home or self-care (01) ==
LOC: MFPLAB 14:36
PROVIDERS: PCP Family Medicine; Visit Provider Family Medicine
DX: I25.10 Atherosclerotic heart disease of native coronary artery without angina pectoris (principal)
CPT/HCPCS: 36415; 80061

== ENCOUNTER → 2025-02-06 | Outpatient (CLI) | payer MEDICARE, SELFPAY ==
[2025-02-06 14:59] LABS: Hematocrit 33.8 % (40-54); Mean Corp Hgb Conc 32.5 g/dL (32-36); Mean Corpuscular Volume 95.2 fL (80-94); Mean Platelet Vol. 11.2 fl (6.2-12.0); Platelet Count 239 K/mm3 (150-450); RBC Distribution Width SD 45.3 fl (35.1-43.9); Red Blood Count 3.55 M/mm3 (4.6-6.2); White Blood Count 8.9 K/mm3 (4.4-11.0)
[2025-02-06 15:25] LABS: Anion Gap 12 (5-15); BUN 44 mg/dL (4-19); BUN/Creat Ratio 23.1 RATIO (10-20); Calcium,Total 9.1 mg/dL (7.6-11.0); Carbon Dioxide 23.7 mmol/L (21.0-32.0); Chloride 103 mmol/L (98-108); Creatinine, Serum 1.88 mg/dL (0.70-1.20); EST Glomerular Filtration Rate 35 (>60); Glucose 287 mg/dL (70-99); Potassium 4.4 mmol/L (3.3-5.1); Sodium Level 139 mmol/L (133-145)
== END | disposition home or self-care (01) ==
LOC: MFPLAB 13:48
PROVIDERS: PCP Family Medicine; Visit Provider Otolaryngology
DX: Z01.818 Encounter for other preprocedural examination (principal)
CPT/HCPCS: 36415; 80048; 85027

== ENCOUNTER 2025-04-02 23:59 | Inpatient (IN) | payer MEDICARE, SELFPAY ==
[2025-04-03] VITALS (43 sets, daily range): BP systolic 91–206; BP diastolic 46–93; PULSE 79–115; RESP 12–25; TEMP 36.5–36.9; O2SAT 93–100; BMI 22.3; BMI 21.2
--- NOTE | 2025-04-03 00:09 | EKG12_ITS ---
Test Reason : SOB Blood Pressure : */* mmHG Vent. Rate : 100 BPM Atrial Rate : 100 BPM P-R Int : 130 ms QRS Dur : 92 ms QT Int : 362 ms P-R-T Axes : 53 50 17 degrees QTcB Int : 466 ms Normal sinus rhythm [address] & T wave abnormality, consider inferior ischemia Abnormal ECG Confirmed by JACQUES URIBE, MINERVA ([id number]), commercial production editor BLANCO BOCANEGRA ([id number]) on 04/09/2025 7:03:07 AM Referred By: Confirmed By: MINERVA HANNA MD
[2025-04-03] MEDS: Ipratropium/Albuterol Sulfate 3 ML AMPUL.NEB INHALATION ×5 (00:10→18:45)
[2025-04-03] MEDS: MethylPREDNISolone 125 MG/2 ML Vial IV (00:13)
[2025-04-03] MEDS: Nitroglycerin SL (ED/IMG/CATH) 0.4 MG TABLET SL (00:13)
--- NOTE | 2025-04-03 00:17 | ED.VIS.DYS ---
HPI History of Present Illness Chief Complaint: Shortness of Breath PFSH PFS Medical History Pneumonia COVID Wears glasses Wears dentures Insulin dependent diabetes mellitus Prostate disease Easy bruising Back pain Dietary restriction Smoker History of pain when walking History of stress test Cardiology follow-up encounter Hypertension Home Medications ?Medication ?Instructions ?Recorded ?Last Taken ?Type amlodipine 10 mg tablet (Norvasc) 10 mg PO 1200 08/05/21 08/12/21 History aspirin 81 mg tablet,delayed 81 mg PO DAILY 08/05/21 Unknown History release insulin glargine 100 unit/mL (3 15 unit subcut QPM 08/05/21 Unknown History mL) subcutaneous pen (Lantus Solostar U-100 Insulin) insulin lispro 100 unit/mL 0 unit subcut TID SLIDING SCALE 08/05/21 Unknown History subcutaneous pen tamsulosin 0.4 mg capsule (Flomax) 0.4 mg PO .COMPLEX urination 08/05/21 Unknown History ezetimibe 10 mg tablet 10 mg PO DAILY 04/06/24 Unknown History lisinopril 5 mg tablet 5 mg PO DAILY 04/06/24 Unknown History metoprolol succinate 25 mg 25 mg PO DAILY 04/06/24 Unknown History tablet,extended release 24 hr blood sugar diagnostic (Contour 09/12/24 Unknown History Next Test Strips) potassium chloride 20 mEq 20 meq PO BIDCM 30 days #60 tabs 09/14/24 Unknown Rx tablet,extended release(part/cryst) furosemide 40 mg tablet (Lasix) 40 mg PO DAILY 04/03/25 Unknown History hydralazine 50 mg tablet 50 mg PO Q8H 04/03/25 Unknown History Allergy/AdvReac Type Severity Reaction Status Date / Time Corticosteroids AdvReac Other Verified 04/03/25 00:16 (Glucocorticoids) (steroids) Ndggcld-Yow-Iwk Reductase AdvReac Other Verified 04/03/25 00:16 Inhibitor Surgical History Hx of cystoscopy Hx of colonoscopy Hx of left cataract extraction Hx of right cataract extraction Social History household members: spouse Smoking Status: Current every day smoker tobacco type: cigarettes alcohol intake: never EXAM Physical Exam Const Vital Signs: 04/03/25 00:01 04/03/25 00:05 04/03/25 00:05 Temperature 97.8 F 97.8 F Temperature Source Temporal Temporal Pulse Rate 103 H 100 Respiratory Rate 25 H 25 H Respiratory Effort Short of Breath Labored Accessory Muscle Use Respiratory Depth Deep Respiratory Pattern Tachypnea Blood Pressure 206/80 H 206/80 H Blood Pressure Mean 122 122 Pulse Ox 100 100 Oxygen Delivery Method CPAP Bi-pap Oxygen Flow Rate (L/min) Fraction of Inspired Oxygen (FIO2) 30 30 04/03/25 00:13 04/03/25 00:14 04/03/25 00:14 Temperature Temperature Source Pulse Rate 92 115 H 115 H Respiratory Rate 22 H 22 H Respiratory Effort Respiratory Depth Respiratory Pattern Blood Pressure 206/80 H Blood Pressure Mean Pulse Ox 100 Oxygen Delivery Method Oxygen Flow Rate (L/min) Fraction of Inspired Oxygen (FIO2) 30 04/03/25 00:19 04/03/25 00:25 04/03/25 01:05 Temperature 97.7 F L Temperature Source Temporal Pulse Rate 87 85 Respiratory Rate 18 16 Respiratory Effort Respiratory Depth Respiratory Pattern Blood Pressure 169/61 H 169/58 H Blood Pressure Mean 97 95 Pulse Ox 100 100 Oxygen Delivery Method Bi-pap Bi-pap Bi-pap Oxygen Flow Rate (L/min) Fraction of Inspired Oxygen (FIO2) 30 30 30 04/03/25 02:00 Temperature Temperature Source Pulse Rate 85 Respiratory Rate 17 Respiratory Effort Respiratory Depth Respiratory Pattern Blood Pressure 172/65 H Blood Pressure Mean 100 Pulse Ox 100 Oxygen Delivery Method Nasal Cannula Oxygen Flow Rate (L/min) 4 Fraction of Inspired Oxygen (FIO2) MDM MDM MDM Narrative Medical decision making narrative: HISTORY OF PRESENT ILLNESS: Chief complaint: Shortness of breath 79-year-old male history of CHF presents with shortness of breath. Notes has been compliant Lasix. Notes earlier today started getting worsening shortness of breath. Denies orthopnea, paroxysmal nocturnal dyspnea or leg swelling. Notes he is losing weight not gaining weight. Denies chest pain. Denies vomiting. Denies bleeding diathesis. The patient denies recent surgery in the last 4 weeks or immobilization in the last 3 days, denies previous diagnosis of DVT or PE, hemoptysis, unilateral leg swelling or malignancy with treatment the last 6 months or palliative. No estrogen use noted. REVIEW OF SYSTEMS: Pertinent positives: Shortness of breath Pertinent negatives: Chest pain PHYSICAL EXAM: Nursing triage notes reviewed, Vital signs reviewed Constitutional: please see mdm HENT: MMM Eyes: Pupils equal round and reactive to light, Extraocular muscles intact Neck: No stridor, no JVD, full neck ROM Lungs: increased work of breathing, conversational dyspnea, bilateral wheezing, coarse breath sounds, no obvious focal consolidation, no obvious rales Heart: Regular rate and rhythm, No murmurs, No rubs and No gallops, 2+ distal pulses (radial, femoral, posterior tibial) in all extremities Abdomen: Soft, there is no tenderness, rigidity, rebound or guarding, no obvious peritoneal signs, no palpable pulsatile abdominal masses, no auscultated abdominal bruit : No CVAT Extremities: No edema Neuro: No new focal neurological deficits, cranial nerves II through XII intact, 5/5 strength in all present extremities. Intact sensation to light touch in all present extremities, 2+ reflexes bilateral patella tendons. Skin: No rash or lesions noted MEDICAL DECISION MAKING: Chief Complaint: please see HPI External records reviewed: Reviewed prior imaging studies: Reviewed echocardiogram from 2023 showed ejection fraction of 60% and no regional wall motion abnormality Factors affecting care: CHF, hypertension, type 2 diabetes, Social determinants of health: no former smoker History obtained from others: , EMS Goals of care discussion: Patient noted he would not under any circumstance will be intubated. He was DNR CCA, DNI Consults: internal medicine only sees Dr. Hwang) [facility] Narrative: The patient was initially tachycardic, tachypneic, saturating 100% on CPAP. He had increased work of breathing conversational dyspnea. Lungs were more consistent with COPD exacerbation with bilateral wheezing, no obvious rales noted initial exam. No signs of volume overload. BiPAP was continued immediately. I considered the following differential diagnosis: COPD exacerbation, CHF exacerbation, PE, ACS, arrhythmia, anemia, electro disturbance, pneumonia, viral illness. Patient was maintained on BiPAP, he was given duo nebs with surgery, on a twelve 5 mg Solu-Medrol empirically. Also given nitroglycerin given initial elevated blood pressure concern for possible pulmonary edema. I obtained a broad lab and imaging workup to further elucidate etiology of the patient's complaints ALL IMAGES (IF OBTAINED) HAVE BEEN PERSONALLY REVIEWED AND INTERPRETED BY MYSELF. EKG with normal sinus rhythm rate 100, normal axis, normal intervals, no obvious STEMI VBG without evidence of significant CO2 retention or respiratory acidosis Chest x-ray shows evidence of right lower lobe pneumonia. Agrees my interpretation. Initial troponin elevated consistent myocardial schema, repeat troponin also elevated, I suspect demand ischemia BNP without significant electrolyte abnormality, noted CKD at baseline CT of the chest shows evidence of PE, shows evidence of pneumonia BNP elevated consistent with CHF exacerbation Upon reevaluation patient's vital signs improved. His blood pressure improved 172/65, tachypnea improved to 17, saturating well on nasal cannula. He was able to be taken off BiPAP. Patient reported increased shortness of breath while off BiPAP so he is placed back on BiPAP. Patient was started on ceftriaxone azithromycin for antimicrobial coverage. Given 40 mg IV Lasix for signs of volume overload in addition to empiric COPD treatment as above. The etiology patient complaints multifactorial likely including COPD exacerbation, CHF and pneumonia. Given Need for noninvasive ventilation, signs of myocardial ischemia, signs of pneumonia will admit to ICU. Discussed with Dr. Hwang. The patient and/or family, caregivers express understanding. The patient and/or family, caregivers agrees with the plan. Shared decision making: I will have a discussion with the patient and or visitors regarding risk/benefits of further testing or admission. They will be made aware of of the risk/benefits inherent in this decision they will be given the opportunity to voice understanding. Total critical care time today provided was at least 60 minutes. This excludes separately billable procedures. Critical care time (if documented) is secondary to the patient having high probability of clinically significant/life threatening deterioration in the patient's condition which required my urgent intervention. Impression: 1. Acute respiratory failure 2. COPD exacerbation 3. CHF exacerbation 4. Hypertensive emergency 5. Elevated troponin Dispo: Admit to ICU This note was generated with [employer] dictation software. It may contain incorrect words, spelling, and punctuation that were not noted in review of the chart prior to signing. Lab Data Labs: Laboratory Results - last 24 hr 04/03/25 04/03/25 00:05 02:45 WBC 15.7 H RBC 3.41 L Hgb 10.2 L Hct 32.2 L MCV 94.4 H MCH 29.9 MCHC 31.7 L RDW Std Deviation 45.3 H RDW Coeff of [place] 13.2 Plt Count 300 MPV 10.8 Immature Gran % (Auto) 0.600 Neut % (Auto) 76.4 H Lymph % (Auto) 13.5 L [place] % (Auto) 7.0 Eos % (Auto) 1.9 Baso % (Auto) 0.6 Absolute Neuts (auto) 12.0 H Absolute Lymphs (auto) 2.12 Nucleated RBC % 0 D-Dimer Quant (PE/DVT) 1.86 H* Sodium 139 Potassium 4.4 Chloride 104 Carbon Dioxide 20.8 L Anion Gap 14 BUN 42 H Creatinine 1.88 H Estim Creat Clear Calc 28.20 L Est GFR (MDRD) Non-Af 35 L BUN/Creatinine Ratio 22.3 H Glucose 255 H Calcium 8.8 Troponin T High Sens 58 H* Troponin T Hi Sens 2 Hr 76 H* NT pro BNP II 6552 H ABG Data ABG results: ABG 04/03/25 00:16 Specimen Type JUANITA Sample Site Not entered O2 % 30.0 VBG pH 7.35 VBG pO2 44 H VBG HCO3 26 VBG Total CO2 27 VBG O2 Sat (Calc) 76 H VBG Base Excess 0 POC Mix VBG pCO2 Pt Tmp 46.6 O2 Delivery Device BiPAP Clinical Comments 18. 10. 30% Radiography Diagnostic Testing: Clinical Impression(s) from Imaging Studies Chest X-Ray 04/03/25 00:30 IMPRESSION: Multifocal airspace opacities of the lungs are more prominent in the perihilar zones and the lower lobes, possibly multifocal congestion and/or pneumonia. Reading Location: [place] [id number] Discharge Plan Triage Chief Complaint: Shortness of Breath ED Provider: John Brandon Dx/Rx/DC Orders Prescriptions: No Action lisinopril 5 mg tablet 5 mg PO DAILY metoprolol succinate 25 mg tablet extended release 24 hr 25 mg PO DAILY ezetimibe 10 mg tablet 10 mg PO DAILY aspirin 81 mg Tablet,Delayed Release (Dr/Ec) 81 mg PO DAILY tamsulosin [Flomax] 0.4 mg Capsule 0.4 mg PO .COMPLEX Rx Instructions: 0.4 mg orally 3x/week; Takes on //SAT; amlodipine [Norvasc] 10 mg Tablet 10 mg PO 1200 insulin lispro 100 unit/mL Insulin Pen 0 unit SUBCUT TID insulin glargine [Lantus Solostar U-100 Insulin] 100 unit/mL (3 mL) Insulin Pen 15 unit SUBCUT QPM furosemide [Lasix] 40 mg tablet 40 mg PO DAILY hydralazine 50 mg tablet 50 mg PO Q8H (DME) Contour Next Test Strips Strip MISCELLANEOUS 4X/DAY potassium chloride 20 mEq Tablet,Er Particles/Crystals 20 meq PO BIDCM 30 Days Qty: 60 0RF Primary Care Provider: Ryley Montenegro Referrals: Ryley Montenegro MD [Primary Care Provider] - Print Language: Vietnamese
[2025-04-03 00:20] LABS: Blood Gas Specimen Type VEN; Comment 18. 10. 30%; O2 Delivery Device BiPAP; SITE Not entered; VBG BASE EXCESS 0 mmol/L (-1.0-3.5); VBG Bicarbonate 26 mmol/L (22-26); VBG PO2 44 mmHg (25-40); VBG SO2 76 % (50-70); VBG TCO2 27 mmol/L (23-33); VBG pCO2 46.6 mmHg (41-51); VBG pH 7.35 (7.32-7.42)
[2025-04-03 00:27] LABS: Absolute Lymphocyte Count 2.12 X10^3/uL (0.83-4.51); Basophil% 0.6 % (0-1); Eosinophils% 1.9 % (0-5); Hematocrit 32.2 % (40-54); Hemoglobin 10.2 g/dL (13.0-16.5); Lymphocyte # 2.12 X10^3/ul (0.83-4.51); Lymphocyte % 13.5 % (19-41); Mean Corp Hgb Conc 31.7 g/dL (32-36); Mean Corpuscular Hgb 29.9 pg (27.0-32.0); Mean Corpuscular Volume 94.4 fL (80-94); Mean Platelet Vol. 10.8 fl (6.2-12.0); NRBC Flagged by Analyzer 0 % (0-5); Neutrophil % 76.4 % (47-70); Platelet Count 300 K/mm3 (150-450); RBC Distribution Width CV 13.2 % (11.6-14.6); RBC Distribution Width SD 45.3 fl (35.1-43.9); Red Blood Count 3.41 M/mm3 (4.6-6.2); White Blood Count 15.7 K/mm3 (4.4-11.0)
--- NOTE | 2025-04-03 00:30 | RAD_ITS ---
PROCEDURE: CHEST 1 VIEW (PORTABLE) 04/03/2025 REASON FOR EXAM: SOB TECHNIQUE: Frontal view of the chest. COMPARISON: 09/12/2024. FINDINGS: Bilateral perihilar and lower lobe multifocal airspace opacities of the lungs. There is no demonstrated pleural abnormality. Normal heart and pericardium. Normal mediastinum and rehana. Normal visualized pulmonary arteries. Normal visualized aortic arch and descending thoracic aorta. Normal visualized thoracic spine. Normal visualized ribs, clavicles, and shoulders. There is no demonstrated abnormality of the visualized soft tissue structures of the upper abdomen. RAD/Chest 1 View (Portable) IMPRESSION: Multifocal airspace opacities of the lungs are more prominent in the perihilar zones and the lower lobes, possibly multifocal congestion and/or pneumonia. Reading Location[facility]
--- OUTSIDE RECORDS SUMMARY | 2025-04-03 00:32 | XMS RPT_ITS | CCD ---
Author Organization [facility] Care Team Providers Care Rural Sociologist Name Role Phone Nancy Mirza Unavailable Unavailable Nancy Mirza Unavailable Unavailable Nancy Mirza Unavailable Unavailable Unavailable Primary Care Provider Nancy Calles Primary Care Provider Nancy Mirza Primary Care Provider Nancy Mirza Primary Care Provider Naresh Mirza MD, Nancy Key Primary Care Provider Nancy Mirza MD Primary Care Provider Nancy Mirza MD Primary Care Provider Nancy Mirza MD Primary Care Provider Nancy Mirza Unavailable Nancy Mirza MD Primary Care Provider [phone] Yuki, Dr. Nancy Key Attending Unavaila ian [...] Attending Unavaila ble Yuki, Dr. Nancy Key Attending Unavaila ble Yuki, Dr. Nancy Key Primary Care Unavaila ble Yuki, Dr. Nancy Key Attending Unavaila ble Yuki, Dr. Nancy Key Primary Care Unavaila ble Yuki, Dr. Nancy Key Primary Care Unavaila ble Yuki, Dr. Nancy Key Attending Unavaila ian Albert, Dr. Ayanna العراقي Attending Unavail able Yuki, Dr. Nancy Key Primary Care Unavaila ble Yuki, Dr. Nancy Key Attending Unavaila ble Yuki, Dr. Nancy Key Primary Care Unavaila ian Mirza MD, Nancy Isbell Primary Care Provider Ryley Jeter MD Primary Care Provider Dr. Ayanna Albert Attending Unavail able JORDAN, TRISTAN PATYEDUAR STEWART Referring Unava ilable NANCY MIRZA Primary Care Unavailable Ayanna Albert DO Unavailable Generic Provider , No Assigned Pcp Primary Car e Provider Unavailable Gerri Amos MD Primary Care Provider Unavailabl e Steffany URIBE, Ryley Key Primary Care Provider Nancy Mirza MD Primary Care Provider Generic Provider , No Assigned Pcp Primary Car e Provider Unavailable Generic Provider , No Assigned Pcp Primary Car e Provider Unavailable Kristy Parker MD Unavailable [phone] GENERIC PROVIDER, NO ASSIGNED PCP Primary Care Unavailable GENERIC PROVIDER, NO ASSIGNED PCP Primary Care Unavailable GENERIC PROVIDER, NO ASSIGNED PCP Primary Care Unavailable Kristy Parker MD Unavailable Steffany URIBE, Ryley Primary Care Provider [phone] Belkis URIBE, Dr. Suresh Attending Provider Malika Alaniz Attending Unavailable Nancy Bhatt Referring Unavailable Steffany, Chalon Primary Care Unavailable Steffany, Chalon Primary Care Unavailable Bernardo Davis Attending Unavailable Steffany, Chalon Primary Care Unavailable Steffany, Chalon Referring Unavailable Isaiah, Kayden Attending Unavailable Steffany, Chalon Primary Care Unavailable Kerwin Tamayo Attending Unavailabl e Steffany, Chalon Primary Care Unavailable Steffany, Chalon Referring Unavailable Steffany, Chalon Attending Unavailable Steffany, Chalon Primary Care Unavailable Colon, Kayden Referring Unavailable ColonNiranjanag Attending Unavailable Steffany, Chalon Attending Unavailable Steffany, Chalon Primary Care Unavailable Steffany, Chalon Primary Care Unavailable Koroma, Young Consulting Unavailable Kittoariela, Nancy Attending Unavailable Koroma, Young Admitting Unavailable Steffany, Chalon Primary Care Unavailable Bernardo Davis Attending Unavailable Steffany, Chalon Primary Care Unavailable Koroma, Young Consulting Unavailable Koroma, Young Admitting Unavailable Koroma, Young Attending Unavailable Koroma, Young Consulting Unavailable Koroma, Young Admitting Unavailable Kittoe, Nancy Attending Unavailable Steffany, Chalon Primary Care Unavailable Kittoe, Nancy Consulting Unavailable Generic Provider MD, No Assigned Pcp Primary Car e Provider Unavailable AYANNA ALBERT Attending Unavailable GENERIC PROVIDER, NO ASSIGNED PCP Primary Care Unavailable AYANNA ALBERT Attending Unavailable AYANNA ALBERT Referring Unavailable GENERIC PROVIDER, NO ASSIGNED PCP Primary Care Unavailable STEFFANY, CHALON TUCKER Primary Care Unavailable DAY, WOO LOERA Attending Unavailable STEFFANY, CHALON TUCKER Primary Care Unavailable DAY, WOO LOERA Attending Unavailable PATY ORTEGA Attending Unavailab le STEFFANY, CHALON TUCKER Primary Care Unavailable STEFFANY, CHALON TUCKER Primary Care Unavailable EJ GUIDRY Attending Unavailable STEFFANY, CHALON TUCKER Primary Care Unavailable DAY, WOO LOERA Attending Unavailable STEFFANY, CHALON TUCKER Primary Care Unavailable KEELEY PATTON Attending Unavailable STEFFANY, CHALON TUCKER Primary Care Unavailable KEELEY PATTON Attending Unavailable STEFFANY, CHALON TUCKER Primary Care Unavailable DAY, WOO LOERA Attending Unavailable PATY ORTEGA Attending Unavailab le STEFFANY, CHALON TUCKER Primary Care Unavailable STEFFANY, CHALON TUCKER Primary Care Unavailable DAY, WOO LOERA Attending Unavailable BROCK GROVES Attending Unavailab le STEFFANY, CHALON TUCKER Primary Care Unavailable SANDI PHAN Admitting Unavailab le SANDI PHAN Referring Unavailab le STEFFANY, CHALON TUCKER Primary Care Unavailable KRISTY PARKER Attending Unavailable PATY ORTEGA Attending Unavailab le STEFFANY, CHALON TUCKER Primary Care Unavailable [facility] Consulting UnaBERNADETTE Gaytan Attending Unavailable STEFFANY, CHALON TUCKER Primary Care Unavailable JESS RASHEED Admitting Unavailable CINTIA CLIFFORD Admitting Unavailable [facility] Consulting Un available STEFFANY, CHALON TUCKER Primary Care Unavailable NIDIA GARAY Attending Unavailable WOO Referring Unavailable Allergies Allergy Classification Reported Allergen(s) Allergy Type Date of Onset Reaction(s) Facility Corticosteroids (1 source) predniSONE Drug Allergy 08-24-20 Other (See Comments) [facility] HMG-CoA Reductase Inhibitors (statins) (3 sources) Hmg-Coa Reductase Inhibitors (Statins) Drug Allergy 01-08-20 16 [facility] (19 sources) Hmg-Coa Reductase Inhibitors (Statins); Translations: [[id number] REDUCTASE INHIBITORS] Propensity to adverse reactions to drug 01-08-20 16 Other [facility] Work Phone: (6 sources) HMG-CoA reductase inhibitor Propensity to adverse reactions to drug 01-08-20 16 [facility] (20 sources) HMG-CoA reductase inhibitor Propensity to adverse reactions to drug 01-08-20 16 Unknown [facility] (17 sources) predniSONE; Translations: [predniSONE TABS] Drug Allergy 08-24-20 Other, Other (See Comments) [facility] (4 sources) predniSONE; Translations: [PREDNISONE] Drug Allergy 08-24-20 [facility] Repository (1 source) Glucocorticoid Receptor Agonists Propensity to adverse reactions 04-06-20 Other [facility] Comment on above: Blood sugar increase (1 source) Corticosteroids Drug allergy (disorder) 04-06-20 [facility] Repository (1 source) Xykvcbw-Hpm-Jdn Reductase Inhibitor Drug allergy (disorder) 04-06-20 [facility] Repository Medications Current Medications Medication Drug Class(es) Dates Sig (Normalized) Sig (Original) amLODIPine 10 mg oral tablet (20 sources) Dihydropyridine Calcium Channel Deepali Start: 03-06-2025 End: 04-05-2025 take 1 tablet by mouth once daily amLODIPine (NORVASC) 10 MG tablet Take 1 (one) tablet (10 mg total) by mouth daily Start: 03/06/25. 30 tablet 03/06/2025 04/05/2025 Active Start: 10-28-2024 End: 10-28-2024 take 10 mg by mouth once daily 10 mg, Oral, Daily, [facility] dose on 10/28/24 at 0900 Start: 11-27-2023 End: 12-01-2023 take 10 mg by mouth once daily 10 mg, Oral, Daily, [facility]ir [facility] dose on 11/27/23 at 0900 Start: 10-22-2010 End: 10-23-2024 take 1 tablet by mouth once daily amLODIPine (Norvasc) 10 mg tablet Take 1 tablet (10 mg) by mouth once daily. 10/22/2010 Active amoxicillin 875 mg / clavulanate 125 mg oral tablet (2 sources) Penicillin-class Antibacterial Start: 12-01-2023 End: 12-15-2023 blood sugar diagnostic (CONTOUR NEXT STRIPS) strips (4 sources) Start: 06-10-2017 blood sugar diagnostic (CONTOUR NEXT STRIPS) strips Indications: 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) E10.9 Use as directed 4 times per day. 150 each 11 06/10/2017 Active blood sugar diagnostic strips (4 sources) Start: 08-12-2015 blood sugar diagnostic strips use as directed 4 times per day. 08/12/2015 Active Blood Sugar Diagnostic Strips (3 sources) Start: 07-05-2018 blood sugar diagnostic (CONTOUR NEXT TEST STRIPS) strips Indications: 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) E10.9 Use as directed 4 times per day. Patient with type 1 DM on insulin with hypoglycemia.. 400 each 3 07/05/2018 Active Start: 06-17-2018 End: 07-05-2018 blood sugar diagnostic (CONT OUR NEXT TEST STRIPS) strips Indications: 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) E10.9 Use as directed 4 times per day. 400 each 3 06/17/2018 07/05/2018 Discontinued Start: 08-12-2015 End: 07-05-2018 blood sugar diagnostic strip s use as directed 4 times per day. 08/12/2015 07/05/2018 Discontinued blood-glucose meter kit (3 sources) Start: 03-12-2025 End: 03-12-2026 blood-glucose meter kit Indications: 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) Contour next EZ Use as instructed, monitor blood sugar 4 times daily. E10.9 . 1 each 03/12/2025 03/12/2026 Active budesonide 0.125 mg/ml inhalation suspension (2 sources) Corticosteroid Start: 10-11-2023 budesonide (Pu lmicort) 0.25 mg/2 mL nebulizer solution 0.25 mg Start: 10-11-2023 End: 10-11-2023 budesonide (Pulmicort) 0.5 m g/2 mL nebulizer solution 0.5 mg cefdinir 300 mg oral capsule (7 sources) Cephalosporin Antibacterial Start: 11-13-2024 take 1 capsule by mouth twice daily cefdinir (OMNICEF) 300 MG capsule Take 1 (one) capsule (300 mg total) by mouth 2 (two) times a day . 11/13/2024 Active cholecalciferol 0.125 mg oral tablet (5 sources) Vitamin D Start: 10-14-2023 End: 11-13-2023 take 1 tablet by mouth once daily cholecalciferol, vitamin D3, 5,000 unit Tab tablet Take 1 (one) tablet (5,000 Units total) by mouth daily . 0 10/14/2023 11/13/2023 Active Start: 10-12-2023 cholecalcifero l (Vitamin D-3) tablet 5,000 Units Drug or medicament (substance) (2 sources) Start: 10-13-2023 ezetimibe 10 mg oral tablet (20 sources) Dietary Cholesterol Absorption Inhibitor Start: 10-21-2023 End: 11-14-2025 take 1 tablet by mouth once daily ezetimibe (Zetia) 10 mg tablet Take 1 (one) tablet (10 mg total) by mouth daily . 30 tablet 11 11/14/2024 11/14/2025 Active Start: 10-13-2023 ezetimibe (Zet ia) tablet 10 mg Start: 10-13-2023 End: 11-12-2023 take 1 tablet by mouth once daily at bedtime ezetimibe (Zetia) 10 mg tablet Indications: Acute on chronic systolic (congestive) heart failure Take 1 tablet (10 mg) by mouth once daily at bedtime. 30 tablet 10/13/2023 6:34 PM EST 10/13/2023 Active furosemide 40 mg oral tablet (20 sources) Loop Diuretic Start: 01-18-2025 take 1 tablet by mouth every twelve hours furosemide (Lasix) 40 mg tablet Take 1 tablet (40 mg) by mouth every 12 hours. 01/18/2025 Active Start: 09-14-2024 End: 10-23-2024 take 1 tablet by mouth twice daily furosemide (LASIX) 40 MG tablet Take 1 (one) tablet (40 mg total) by mouth 2 (two) times a day . 180 tablet 3 10/23/2024 Active Start: 12-01-2023 End: 02-23-2025 take 1 tablet by mouth twice daily Furosemide 20 mg tablet Discontinued 20 mg PO TWICE A DAY April 06, 2024 12:00am September 14, 2024 8:26am Start: 11-27-2023 End: 12-01-2023 20 mg, Intravenous, Every 12 hours scheduled, First dose (after last modification) on 11/28/23 at 1800 Administer IV push at 20 mg per minute (doses higher than 100 mg require IVPB) Start: 11-26-2023 End: 11-26-2023 furosemide (Lasix) injection 40 mg Start: 10-11-2023 End: 10-11-2023 furosemide (Lasix) injection 20 mg Start: 10-11-2023 End: 10-11-2023 furosemide (Lasix) injection - Omnicell Override Pull glucagon (rdna) 1 mg injection (1 source) Antihypoglycemic Agent Start: 10-11-2023 glucagon (Glucagen) injection 1 mg hydrALAZINE hydrochloride 50 mg oral tablet (20 sources) Arteriolar Vasodilator Start: 03-05-2025 End: 04-04-2025 take 1 tablet by mouth every eight hours hydrALAZINE (APRESOLINE) 50 MG tablet Take 1 (one) tablet (50 mg total) by mouth every 8 (eight) hours . 90 tablet 03/05/2025 04/04/2025 Active Start: 09-14-2024 End: 10-28-2024 take 1 tablet by mouth twice daily hydrALAZINE (Apresoline) 50 mg tablet Take 1 tablet (50 mg) by mouth 2 times a day. 10/23/2024 Active hydroCHLOROthiazide 12.5 mg oral capsule (9 sources) Thiazide Diuretic Start: 10-11-2023 hydroCHLOROthiazide (Microzide) capsule 12.5 mg Start: 09-22-2022 End: 02-24-2024 hydroCHLOROthiazide (HYDRODi uril) 12.5 mg tablet 09/22/2022 02/24/2024 Discontinued (Therapy completed) Ibuprofen (7 sources) Nonsteroidal Anti-inflammatory Drug ibuprofen (ADVIL ORAL) Take by mouth . Active 3 ml insulin aspart, human 100 unt/ml pen injector (4 sources) Insulin Analog Start: 01-01-2025 insulin aspart U-100 100 unit/mL (3 mL) InPn Indications: 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) Inject 10-12 units before breakfast, 10-12 units before lunch, 10-12 units before dinner. Max daily dose 36 units. . 15 mL 11 01/01/2025 Active 3 ml insulin glargine 100 unt/ml pen injector (20 sources) Insulin Analog Start: 10-28-2024 End: 10-28-2024 12 Units, Subcutaneous, Nightly, First dose on 10/28/24 at 2100, Do not hold basal insulin without notifying physician. If patient NPO: If BG less than 100 before procedure, administer half of the glargine insulin (Lantus) dose If BG is greater than 100 administer full dose Do not mix with other insulins in a syringe. Do NOT hold basal insulin without notifying physician Start: 10-27-2024 End: 10-27-2024 14 Units, Subcutaneous, Nigh tly, First dose on Wed10/27/24 at 2100, Do not mix with other insulins in a syringe. Do NOT hold basal insulin without notifying physician Start: 10-27-2024 5 Units, Subcu taneous, Once, On 10/28/24 at 1100, For 1 dose, If patient NPO and BG LESS than 100 before procedure, administer half (rounded up to nearest unit) of the glargine insulin (LANTUS) dose; if BG is GREATER than 100, administer the full dose unless otherwise instructed by ordering physician Do not mix with other insulins in a syringe. Do NOT hold basal insulin without notifying physician Start: 11-30-2023 End: 12-01-2023 14 Units, Subcutaneous, Nigh tly, First dose (after last modification) on Wed11/30/23 at 2100 Do not hold basal insulin without notifying physician. If patient NPO and BG < 100 before procedure, administer half of the glargine insulin (Lantus) dose; if BG is >100 administer full dose. Do not mix with other insulins in a syringe. Do NOT hold basal insulin without notifying physician Start: 11-29-2023 End: 11-30-2023 16 Units, Subcutaneous, Nigh tly, First dose (after last modification) on Wed11/29/23 at 2100 Do not hold basal insulin without notifying physician. If patient NPO and BG < 100 before procedure, administer half of the glargine insulin (Lantus) dose; if BG is >100 administer full dose. Do not mix with other insulins in a syringe. Do NOT hold basal insulin without notifying physician Start: 11-27-2023 End: 11-29-2023 14 Units, Subcutaneous, Nigh tly, First dose on Wed11/28/23 at 2100 Do not hold basal insulin without notifying physician. If patient NPO and BG < 100 before procedure, administer half of the glargine insulin (Lantus) dose; if BG is >100 administer full dose. Do not mix with other insulins in a syringe. Do NOT hold basal insulin without notifying physician Start: 10-13-2023 insulin glargi ne (Lantus) injection 20 Units Start: 10-12-2023 insulin glargi ne (Lantus) injection - Omnicell Override Pull Start: 10-11-2023 End: 10-13-2023 insulin glargine (Lantus) injection 14 Units Start: 07-30-2023 insulin glargi ne (Lantus Solostar U-100 Insulin) 100 unit/mL (3 mL) InPn Inject 14 (fourteen) Units under the skin nightly . 15 mL 11 07/30/2023 Active Start: 06-21-2023 End: 11-06-2024 insulin glargine (Basaglar K wikPen U-100 Insulin) 100 unit/mL (3 mL) InPn Indications: 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) Inject 18 (eighteen) Units under the skin nightly . 15 mL 3 11/07/2024 Active Start: 08-05-2021 Insulin Glargi ne (Lantus Solostar U-100 Insulin) 100 unit/mL (3 mL) Insulin Pen Active 15 U SC EVERY EVENING August 05, 2021 12:00am Start: 08-05-2021 Insulin Glargi ne (Lantus Solostar U-100 Insulin) 100 unit/mL (3 mL) Insulin Pen Active 18 UNIT SC EVERY EVENING August 04, 2021 11:00pm Start: 10-13-2019 End: 06-19-2022 Lantus Solostar U-100 Insuli n 100 unit/mL (3 mL) InPn Inject 18 (eighteen) Units under the skin nightly . 15 mL 11 06/19/2022 Active Start: 11-11-2018 inject 20 [IU] by leal bcutaneous injection once daily, then inject 100 [IU] by subcutaneous injection LANTUS SOLOSTAR U-100 INSULIN 100 unit/mL (3 mL) InPn Inject 20 (twenty) Units under the skin nightly . 5 pen 3 11/11/2018 Active Start: 11-11-2018 LANTUS SOLOSTA R U-100 INSULIN 100 unit/mL (3 mL) InPn Inject 20 (twenty) Units under the skin nightly . 5 pen 3 11/11/2018 Active Lantus SoloStar 100 UNIT/ML Subcutaneous Solution Pen-injector INJECT 18 UNIT Bedtime Quantity: 0 Refills: 0 Ordered: 29-Jun-2023 DO Active 3 ml insulin lispro 100 unt/ml pen injector (20 sources) Insulin Analog Start: 03-05-2025 End: 04-04-2025 inject 8 [IU] by subcutaneous injection three times daily insulin lispro 100 unit/mL InPn Indications: 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) Inject 8 (eight) Units under the skin 3 (three) times a day . 7.2 mL 03/05/2025 04/04/2025 Active Start: 02-16-2025 insulin lispro 100 unit/mL InPn Indications: 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) Inject 12 (twelve) Units under the skin 3 (three) times a day . 15 mL 7 02/16/2025 Active Start: 10-28-2024 End: 10-28-2024 0-30 Units, Subcutaneous, 3 times daily before meals, First dose (after last modification) on 10/28/24 at 1100, * Dose should be given EITHER: No sooner than 10-15 minutes BEFORE a meal (Specific Prandial Doses or NO Prandial Dose - Corrective Scale ONLY) - OR - Immediately AFTER meal completed (Carb Counting Ratio), Prandial Insulin Dosing Method: SPECIFIC Prandial Doses, Specific Prandial Dose (units of Insulin): 10, Corrective Insulin Regimen (select desired scale to cover BG result): Insulin SENSITIVE Scale, Dose Reduction Threshold (at meals) for POC Blood Glucose less than or equal to: 80, For Downtime Calculator, use: Insulin SC MEALtime PREprandial Start: 12-01-2023 End: 02-16-2025 insulin lispro 100 unit/mL I nPn Use as directed 8 units before breakfast, 9 units before lunch, 8 units before dinner . 15 mL 11 11/20/2024 02/16/2025 Discontinued (Reorder (Suppress CancelRx Message to Pharmacy)) Start: 11-28-2023 End: 12-01-2023 inject 1 dose by subcutaneous injection once before mealtime 0-30 Units, Subcutaneous, Before dinner, First dose (after last modification) on 11/29/23 at 1630 Dose should be given 10-15 minutes before a meal. If poor oral intake, nausea or blood glucose value < 80 before meal, give of the dose (rounded up to nearest unit) immediately after meal completed. If patient skipping meal, hold base prandial dose and continue to use corrective insulin as ordered. Once diet resumed, total base prandial + corrective doses may be given. Prandial Insulin Dosing Method: Specific Prandial Doses Specific Prandial Dose (units of Insulin): 9 Corrective Insulin Regimen (select desired scale to cover BG result): Insulin SENSITIVE Scale For Downtime Calculator, use: Insulin SC MEALtime PREprandial Start: 11-28-2023 End: 12-01-2023 inject 1 dose by subcutaneous injection once daily 0-15 Units, Subcutaneous, At bedtime, First dose on 11/28/23 at 2100 For Nightly Insulin Dose Coverage, use: CORRECTIVE (Only) for BG greater than 300 Nightly CORRECTIVE Dose Method: Follow Corrective SCALE Corrective Scale to use for BG > 300: Insulin SENSITIVE Scale For Downtime Calculator, use: Insulin SC NIGHTtime Start: 11-27-2023 End: 11-28-2023 0-30 Units, Subcutaneous, Ev stephane 4 hours, First dose (after last modification) on 11/27/23 at 2000 Continue to administer as long as tube feedings or parenteral nutrition are running. If tube feed or parenteral nutrition held, hold the base dose but continue to give corrective insulin as ordered. Resume total insulin once tube feedings resumed. Prandial Insulin Dosing Method: NO Prandial Dose - Corrective Scale ONLY Corrective Insulin Regimen (select desired scale to cover BG result): Insulin SENSITIVE Scale For Downtime Calculator, use: Insulin SC MEALtime PREprandial Start: 10-11-2023 End: 10-11-2023 insulin lispro (HumaLOG) injection 0-15 Units Start: 08-05-2021 End: 12-01-2023 Start: 03-15-2020 End: 11-02-2023 insulin lispro (HumaLOG) 100 unit/mL injection Uses approx. 35 units daily 02/19/2023 Active Start: 02-24-2019 insulin lispro (HumaLOG KwikPen Insulin) 100 unit/mL InPn Uses approx. 35 units daily. DX code E 10.65 . 5 pen 11 02/24/2019 Active Start: 02-21-2018 insulin lispro (HumaLOG KwikPen Insulin) 100 unit/mL InPn Uses approx. 35 units daily. DX code E 10.65. 5 pen 11 02/21/2018 Active Start: 06-10-2017 insulin lispro (HumaLOG KwikPen) 100 unit/mL InPn Uses approx. 32 units daily. DX code E 10.65. 5 pen 5 06/10/2017 Active HumaLOG KwikPen 100 UNIT/ML Subcutaneous Solution Pen-injector INJECT 35 UNIT Daily Quantity: 0 Refills: 0 Ordered: 29-Jun-2023 DO Active insulin lispro (AdmeLOG,HumaLOG) injection 0-15 Units (1 source) Start: 10-28-2024 End: 10-28-2024 insulin lispro (AdmeLOG,HumaLOG) injection 0-15 Units insulin lispro (HumaLOG) 100 unit/mL injection (2 sources) Start: 02-19-2023 insulin lispro (HumaLOG) 100 unit/mL injection Uses approx. 35 units daily 0 02/19/2023 Active insulin lispro 100 unit/mL InPn (1 source) Start: 11-02-2023 insulin lispro 100 unit/mL InPn Use as directed 8 units before breakfast, 9 units before lunch, 10 units before dinner Needs Admelog Solostar Pens. . 15 mL 11 11/02/2023 Active ipratropium bromide 0.042 mg/actuat metered dose nasal spray (4 sources) Anticholinergic take 2 spray(s) nasal route three times daily as needed ipratropium (ATROVENT) 42 mcg (0.06 %) nasal spray Instill 2 (two) sprays into each nostril 3 (three) times a day as needed . Active 24 hr isosorbide mononitrate 30 mg extended release oral tablet (20 sources) Nitrate Vasodilator Start: 10-06-2024 End: 10-28-2024 take 1 tablet by mouth once daily isosorbide mononitrate (IMDUR) 30 MG 24 hr tablet Take 1 (one) tablet (30 mg total) by mouth daily . 90 tablet 3 10/23/2024 Active lisinopril 5 mg oral tablet (20 sources) Angiotensin Converting Enzyme Inhibitor Start: 02-24-2024 End: 02-24-2024 take 1 tablet by mouth twice daily lisinopril 5 mg tablet Indications: Acute on chronic systolic (congestive) heart failure (Multi) Take 1 tablet (5 mg) by mouth 2 times a day. 60 tablet 02/24/2024 02/24/2024 Discontinued (Reorder) Start: 10-13-2023 End: 11-02-2025 take 1 tablet by mouth once daily lisinopril 5 mg tablet Indications: Acute on chronic systolic (congestive) heart failure Take 1 tablet (5 mg) by mouth once daily. 30 tablet 02/24/2024 Active Start: 10-08-2023 End: 10-07-2024 LORazepam 0.5 mg oral tablet (1 source) Benzodiazepine Start: 10-12-2023 LORazepam (Ativan) tablet 0.5 mg magnesium hydroxide 240 mg/ml oral suspension (1 source) Start: 10-11-2023 take 10 mL by mouth every twenty-four hours as needed 10 mL, oral, Daily PRN, constipation, first line, Starting on 10/11/23 at 0502 Contact provider if no bowel movement in past 48 hours. Concent rated product. Follow administration with 8 ounces of water. 24 hr metoprolol succinate 25 mg extended release oral tablet (20 sources) beta-Adrenergic Deepali Start: 10-11-2023 End: 10-28-2024 take 1 tablet by mouth once daily metoprolol succinate (TOPROL-XL) 25 MG 24 hr tablet Take 1 (one) tablet (25 mg total) by mouth daily . 90 tablet 3 10/23/2024 Active nitroglycerin 0.4 mg sublingual tablet (13 sources) Nitrate Vasodilator Start: 11-14-2024 End: 11-14-2025 nitroGLYCERIN (Nitrostat) 0.[address] 1 (one) tablet (0.4 mg total) under the tongue every 5 (five) minutes as needed for chest pain , if no relief after 3 doses call 911 . 3 tablet 3 11/14/2024 11/14/2025 Active Start: 11-27-2023 End: 12-01-2023 0.4 mg, Sublingual, Every 5 min PRN, chest pain, Starting on 11/27/23 at 0337 Anginal pain, may repeat [id number] x3, then notify physician. DO NOT CRUSH OR CHEW. Start: 10-11-2023 End: 10-11-2023 nitroglycerin (Darrick-Bid) 2 % ointment 1 inch ondansetron ODT (Zofran-ODT) disintegrating tablet 4 mg (1 source) Start: 10-11-2023 take 1 tablet by mouth every eight hours as needed ondansetron ODT (Zofran-ODT) disintegrating tablet 4 mg oxygen (O2) gas therapy (9 sources) Start: 10-13-2023 End: 08-29-2024 oxygen (O2) gas therapy Indications: Pneumonia of both lungs due to infectious organism, unspecified part of lung Inhale 2 L/min see administration instructions. 2 L during short effort 2 L continuous during activity 10/13/2023 08/29/2024 Discontinued (Therapy completed) Start: 10-13-2023 oxygen (O2) ga s therapy Indications: Pneumonia of both lungs due to infectious organism, unspecified part of lung Inhale 2 L/min see administration instructions. 2 L during short effort 2 L continuous during activity 10/13/2023 Active Start: 10-13-2023 oxygen (O2) ga s therapy Indications: Pneumonia of both lungs due to infectious organism, unspecified part of lung Inhale 2 L/min see administration instructions. 2 L during short effort 2 L continuous during activity 0 10/13/2023 Active Start: 10-13-2023 End: 10-13-2023 oxygen (O2) gas therapy Ronna cations: Pneumonia of both lungs due to infectious organism, unspecified part of lung Inhale 2 L/min continuously. 0 10/13/2023 10/13/2023 Discontinued (Reorder) oxygen (O2) therapy (2 sources) Start: 11-26-2023 oxygen (O2) th erapy Start: 10-11-2023 oxygen (O2) th erapy OXYGEN-AIR DELIVERY SYSTEMS MISC (20 sources) Start: 10-13-2023 OXYGEN-AIR DEL RUPINDER SYSTEMS MISC Inhale 2 L/min See Admin Instructions . 10/13/2023 Start: 10-13-2023 OXYGEN-AIR DEL RUPINDER SYSTEMS MISC Inhale 2 L/min See Admin Instructions . 10/13/2023 Active Start: 10-13-2023 OXYGEN-AIR DEL RUPINDER SYSTEMS MISC Inhale 2 L/min See Admin Instructions . 0 10/13/2023 Active Pen Needle, Diabetic 32 Gauge X 1/4 (1 source) Start: 06-17-2017 pen needle, di abetic 32 gauge x 1/4 Ndle use as directed 4 times per day for insulin injection. 400 each 3 06/17/2017 Active pen needle, diabetic 32 gauge x 1/4 Ndle (4 sources) Start: 06-17-2017 pen needle, di abetic 32 gauge x 1/4 Ndle use as directed 4 times per day for insulin injection. 400 each 3 06/17/2017 Active perflutren protein A microsphere (Optison) injection 0.5 mL (1 source) Start: 10-11-2023 perflutren pro tein A microsphere (Optison) injection 0.5 mL microencapsulated potassium chloride 20 meq extended release oral tablet (20 sources) Start: 10-12-2024 take 1 tablet by mouth once daily Klor-Con M20 20 mEq tablet Take 1 (one) tablet (20 mEq total) by mouth daily . 10/12/2024 Active Start: 09-14-2024 take 1 tablet by mouth twice d aily Klor-Con M20 20 mEq tablet Take 1 (one) tablet (20 mEq total) by mouth 2 (two) times a day . 10/12/2024 Active Start: 11-27-2023 End: 11-27-2023 20 mEq, Oral, Once, On 11/27/23 at 2230, For 1 dose 20mEq orally x 1 for serum Potassium in range of 3.5-4 mEq/L per Critical Care Electrolyte Replacement Therapy. DO NOT CRUSH OR CHEW (if instructed may dissolve tablet(s) in liquid) DO NOT ADMINISTER DISSOLVED TABLET VIA SURGICALLY PLACED TUBE OR TUBE less than 14 Arabic. To administer dissolved tablet(s) mix with 4 ounces of water over 2-3 minutes, stir for 30 seconds prior to administration; rinse dosing cup and administer residual medication to ensure full dose given Start: 11-27-2023 End: 11-27-2023 take 1 dose intravenously once 20 mEq, Intravenous, at 100 mL/hr, Once, On 11/27/23 at 1730, For 1 dose 20mEq IVPB over 60 minutes x 1 for serum Potassium in range of 3.5-4 mEq/L per Critical Care Electrolyte Replacement Therapy. (CRITICAL CARE) VESICANT Start: 11-27-2023 End: 11-27-2023 take 20 mEq intravenously every hour 20 mEq, Intravenous, at 100 mL/hr, Every 1 hour, First dose on 11/27/23 at 1015, For 2 doses 20mEq IVPB over 60 minutes x 2 (for total of 40 mEq over 2 hours) for serum Potassium in range of 3-3.4 mEq/L per Critical Care Electrolyte Replacement Therapy. (CRITICAL CARE) ORDER repeat potassium level 4 hours after second dose has been infused. VESICANT predniSONE 20 mg oral tablet (14 sources) Start: 10-24-2024 predniSONE (DELTASONE) 20 MG tablet Take 1 (one) tablet (20 mg total) by mouth For 5 days . 10/24/2024 Active spironolactone 25 mg oral tablet (4 sources) Aldosterone Antagonist Start: 03-09-2025 End: 03-09-2026 take 1 tablet by mouth once daily spironolactone (ALDACTONE) 25 MG tablet Take 1 (one) tablet (25 mg total) by mouth daily . 30 tablet 11 03/09/2025 03/09/2026 Active sulfur hexafluoride microsphr (Lumason) injection 24.28 mg (1 source) Start: 10-11-2023 sulfur hexafluoride microsphr (Lumason) injection 24.28 mg tamsulosin hydrochloride 0.4 mg oral capsule (20 sources) alpha-Adrenergic Deepali Start: 08-05-2021 take 1 capsule by mouth every week Tamsulosin (Flomax) 0.4 mg Capsule Active 0.4 mg PO .COMPLEX August 05, 2021 12:00am 0.4 mg orally 3x/week; Takes on //WED; Start: 09-01-2018 End: 10-28-2024 take 1 capsule by mouth once daily tamsulosin (FLOMAX) 0.4 mg capsule Take 1 (one) capsule (0.4 mg total) by mouth daily . 30 capsule 3 12/01/2023 Active zinc sulfate 220 mg oral capsule (5 sources) Start: 10-12-2023 End: 11-13-2023 take 1 capsule by mouth once daily zinc sulfate (ZINCATE) 50 mg zinc (220 mg) capsule Take 50 mg by mouth daily . 0 10/14/2023 11/13/2023 Active (2 sources) Start: 02-19-2023 (3 sources) Start: 12-01-2023 Start: 12-31-2022 End: 12-01-2023 Completed/Discontinued Medications Medication Drug Class(es) Dates Sig (Normalized) Sig (Original) acetaminophen 325 mg oral tablet (20 sources) Start: 10-27-2024 End: 10-28-2024 take 1 tablet by mouth every four hours as needed for pain and headache 650 mg, Oral, Every 4 hours PRN, mild pain, fever 100.4 F or greater, headaches, Starting on Wed10/27/24 at 1701 Start: 11-27-2023 End: 12-01-2023 take 1 tablet by mouth every four hours as needed for pain and headache 650 mg, Oral, Every 4 hours PRN, mild pain, fever 100.4 F or greater, headaches, Starting on 11/27/23 at 0312 Start: 10-11-2023 take 1 tablet by andres th every four hours as needed acetaminophen (Tylenol) tablet 650 mg Start: 10-08-2023 take 1 tablet by andres th every eight hours as needed for pain acetaminophen (Tylenol Arthritis Pain) 650 MG CR tablet Take 1 (one) tablet (650 mg total) by mouth every 8 (eight) hours as needed for pain . 0 10/08/2023 Active acetaminophen (T ylenol) 500 mg capsule Take by mouth. Active Acetaminophen Ex tra Strength 500 MG CAPS Quantity: 0 Refills: 0 Ordered: 27-Jul-2023 DO Active albuterol 0.83 mg/ml inhalation solution (1 source) beta2-Adrenergic Agonist Start: 10-11-2023 End: 10-11-2023 albuterol 2.5 mg /3 mL (0.083 %) nebulizer solution 2.5 mg albuterol 0.833 mg/ml / ipratropium bromide 0.167 mg/ml inhalation solution (5 sources) Anticholinergic, beta2-Adrenergic Agonist Start: 11-27-2023 End: 11-28-2023 take 3 mL by inhalation every four hours 3 mL, Inhalation, Every 4 hours scheduled (RT), First dose on 11/27/23 at 0400 Start: 11-27-2023 End: 12-01-2023 take 3 mL by inhalation every two hours as needed for wheezing 3 mL, Inhalation, Every 2 hour PRN, shortness of breath, wheezing, Starting on 11/27/23 at 0312 Start: 10-11-2023 End: 10-11-2023 ipratropium-albuteroL (Duo-N eb) nebulizer solution - Omnicell Override Pull Start: 10-11-2023 End: 10-11-2023 ipratropium-albuteroL (Duo-N eb) 0.5-2.5 mg/3 mL nebulizer solution 3 mL aspirin 81 mg delayed release oral tablet (20 sources) Platelet Aggregation Inhibitor, Nonsteroidal Anti-inflammatory Drug Start: 10-11-2023 aspirin chewable tablet 324 mg Start: 03-18-2021 End: 10-28-2024 take 81 mg by mouth once daily 81 mg, Oral, Daily, Fir st dose on 10/28/24 at 0900, DO NOT CRUSH OR CHEW. atorvastatin 20 mg oral tablet (1 source) HMG-CoA Reductase Inhibitor Start: 11-27-2023 End: 11-29-2023 take 20 mg by mouth once daily 20 mg, Oral, Nightly, First dose on 11/27/23 at 0430 azithromycin 250 mg oral tablet (1 source) Macrolide Antimicrobial Start: 10-12-2023 End: 10-13-2023 azithromycin (Zithromax) tablet 500 mg azithromycin (Zithromax) in dextrose 5 % in water (D5W) 250 mL IV 500 mg (2 sources) Start: 10-12-2023 End: 10-12-2023 azithromycin (Zithromax) in dextrose 5 % in water (D5W) 250 mL IV 500 mg Start: 10-11-2023 End: 10-11-2023 azithromycin (Zithromax) in dextrose 5 % in water (D5W) 250 mL IV 500 mg cefTRIAXone 2000 mg injection (3 sources) Cephalosporin Antibacterial Start: 11-27-2023 End: 12-01-2023 take 2000 mg intravenously every twenty-four hours 2,000 mg, Intravenous, at 100 mL/hr, Every 24 hours, First dose on 11/27/23 at 0430 Indication: CAP Start: 10-12-2023 End: 10-13-2023 cefTRIAXone (Rocephin) 2 g I V in dextrose 5% 50 mL Start: 10-11-2023 End: 10-11-2023 cefTRIAXone (Rocephin) IVPB 1 g dexamethasone 4 mg oral tablet (2 sources) Corticosteroid Start: 10-12-2023 End: 10-13-2023 dexAMETHasone (Decadron) tablet 6 mg Start: 10-11-2023 End: 10-11-2023 dexAMETHasone (PF) (Decadron ) injection 10 mg diazePAM 5 mg/ml injectable solution (2 sources) Benzodiazepine Start: 10-11-2023 End: 10-11-2023 diazePAM (Valium) injection 0.5 mg Start: 10-11-2023 End: 10-11-2023 diazePAM (Valium) injection - Omnicell Override Pull empagliflozin 10 mg oral tablet (6 sources) Sodium-Glucose Cotransporter 2 Inhibitor Start: 10-11-2023 End: 02-24-2024 take 1 tablet by mouth once daily empagliflozin (Jardiance) 10 mg Indications: Acute on chronic systolic (congestive) heart failure (Multi) Take 1 tablet (10 mg) by mouth once daily. Do not start before October 14, 2023. 30 tablet 10/14/2023 02/24/2024 Discontinued (Therapy completed) 2 ml enalaprilat 1.25 mg/ml injection (1 source) Angiotensin Converting Enzyme Inhibitor Start: 10-11-2023 End: 10-11-2023 enalaprilat (Vasotec) injection 1.25 mg 1000 ml glucose 100 mg/ml injection (4 sources) Start: 10-28-2024 End: 10-28-2024 125 mL, Intravenous, at 750 mL/hr, Once, On 10/28/24 at 0815, For 1 dose Start: 11-27-2023 End: 12-01-2023 125 mL, Intravenous, at 750 mL/hr, As needed, Hypoglycemia, Starting on 11/27/23 at 1151, For 1 dose Per Hypoglycemia Protocol: Blood Sugar: 51-69 mg/dL. Patient Condition: and patient is NPO, or NOT ALERT, or is UNABLE to swallow/eat. Intervention: Administer 125 mL D10% IV instead of half amp (12.5 grams) D50% due to shortage. Start: 10-11-2023 dextrose 10 % in water (D10W) infusion Start: 10-11-2023 dextrose 50 % injection 25 g 500 ml glucose 50 mg/ml / potassium chloride 0.02 meq/ml / sodium chloride 4.5 mg/ml injection (1 source) Start: 10-27-2024 End: 10-28-2024 100 mL/hr, Intravenous, Continuous PRN, MAINTENANCE IV Fluid (once BG is first less than 250 mg/dL) AND whenever Potassium is LESS than 5, Starting on Wed10/27/24 at 2142, AFTER starting this maintenance IV fluid: STOP the initial IV infusion on the DEC, and DISCONTINUE the initial IV order (send for provider cosign). 250 ml glucose 50 mg/ml / sodium chloride 4.5 mg/ml injection (2 sources) Start: 10-27-2024 End: 10-28-2024 100 mL/hr, Intravenous, Continuous PRN, MAINTENANCE IV Fluid (once BG is first less than 250 mg/dL) AND whenever Potassium is GREATER than or EQUAL to 5, Starting on Wed10/27/24 at 2142, AFTER starting this maintenance IV fluid: STOP the initial IV infusion on the MAR, and DISCONTINUE the initial IV order (send for provider cosign). Start: 11-27-2023 End: 11-28-2023 take 50 mL intravenously every hour as needed 50 mL/hr, Intravenous, Continuous PRN, If blood glucose LESS than 140 mg/dL and patient NOT on TPN or tube feeding, Starting on 11/27/23 at 1047 1 ml heparin sodium, porcine 5000 unt/ml injection (7 sources) Unfractionated Heparin, Anti-coagulant Start: 10-28-2024 End: 10-28-2024 inject 5000 [IU] by subcutaneous injection every eight hours 5,000 Units, Subcutaneous, Every 8 hours scheduled, First dose on 10/28/24 at 1400, Notify physician if patient refuses. Start: 11-27-2023 End: 11-29-2023 0-70 Units/kg/hr 70.6 kg (0- 49.42 mL/hr, rounded to 0-49.4 mL/hr), Intravenous, Continuous, Starting on 11/27/23 at 0400 Choose one of the following protocols: Cardiac / Arterial Bolus options: Protocol WITHOUT initial bolus only For Downtime Calculator, use: Heparin Infusion Standard Start: 11-26-2023 heparin 25,000 Units in dextrose 5% 250 mL (100 Units/mL) infusion (premix) Start: 11-26-2023 End: 11-26-2023 heparin (porcine) injection 4,000 Units Start: 11-26-2023 take 7231-2606 [IU] intravenously every four hours as needed heparin (porcine) injection 1,500-3,000 Units Start: 10-12-2023 inject 5000 [IU] by subcutaneous injection every eight hours heparin (porcine) injection 5,000 Units Start: 10-11-2023 End: 10-12-2023 take 5000 [IU] intravenously every eight hours heparin (porcine) injection 5,000 Units heparin bolus from bag 0-5,000 Units (1 source) Start: 11-27-2023 End: 11-29-2023 0-5,000 Units, Intravenous, Continuous PRN, IF the BANNER calculator for heparin infusion specifies a bolus from bag is to be administered, Starting on 11/27/23 at 0312 Choose one of the following protocols: Cardiac / Arterial Bolus options: Protocol WITHOUT initial bolus only For Downtime Calculator, use: Heparin Infusion Standard hydroCHLOROthiazide 12.5 mg / lisinopril 20 mg oral tablet (8 sources) Thiazide Diuretic, Angiotensin Converting Enzyme Inhibitor End: 10-21-2023 take 1 tablet by mouth once daily lisinopriL-hydroch lorothiazide (PRINZIDE,ZESTORET IC) 20-12.5 mg per tablet Take 1 (one) tablet by mouth daily . 0 10/21/2023 Discontinued (Patient's Request) hydroCHLOROthiazide 12.5 mg / quinapril 20 mg oral tablet (20 sources) Thiazide Diuretic, Angiotensin Converting Enzyme Inhibitor Start: 08-05-2021 take 1 tablet by mouth once daily Quinapril-Hydrochl orothiazide Active 1 TABLET PO DAILY August 04, 2021 11:00pm Start: 10-22-2010 End: 04-06-2024 Quinapril-Hydrochlorothiazid e 20-12.5 mg Tablet Discontinued 1 {tbl} PO DAILY August 05, 2021 12:00am April 06, 2024 2:42pm 3 ml insulin degludec 200 unt/ml pen injector (10 sources) Insulin Analog Start: 03-13-2019 End: 06-20-2021 insulin degludec 200 unit/mL (3 mL) InPn Use as directed qHS (approx 18 units/day) . 9 mL 3 03/13/2019 06/20/2021 Discontinued 3 ml insulin detemir 100 unt/ml pen injector (7 sources) Insulin Analog Start: 02-07-2018 End: 11-11-2018 insulin detemir U-100 (LEVEMIR FLEXTOUCH U-100 INSULN) 100 unit/mL (3 mL) InPn Inject 20 (twenty) Units under the skin nightly. 15 mL 6 02/07/2018 11/11/2018 Discontinued Start: 02-04-2017 End: 02-04-2018 insulin detemir (LEVEMIR) 10 0 unit/mL (3 mL) InPn Indications: 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) Inject 20 Units under the skin nightly. 15 mL 4 02/04/2017 02/04/2018 Active Start: 02-04-2017 End: 02-04-2018 inject 20 [IU] by subcutaneous injection once daily insulin detemir (LEVEMIR) 100 unit/mL (3 mL) InPn Indications: 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) Inject 20 Units under the skin nightly. 15 mL 4 02/04/2017 02/04/2018 Active insulin regular (HumuLIN, NovoLIN) bolus from bag 0-10 Units (1 source) Start: 10-11-2023 End: 10-11-2023 insulin regular (HumuLIN, NovoLIN) bolus from bag 0-10 Units 100 ml insulin, regular, human 1 unt/ml injection (8 sources) Insulin Start: 10-27-2024 End: 10-28-2024 take 0.1-30 [IU] intravenously every hour, then take 0.1-30 mL intravenously every hour 0.1-30 Units/hr (0.1-30 mL/hr), Intravenous, Titrated, Starting on Wed10/27/24 at 2230, Titrate insulin IV per MAR calculator to coincide with the scheduled point of care glucose results., For Downtime Calculator, use: Insulin Infusion DKA Start: 11-27-2023 End: 11-28-2023 0-30 Units/hr (0-30 mL/hr), Intravenous, Titrated, Starting on 11/27/23 at 1145 Titrate insulin IV per MAR calculator to coincide with the scheduled point of care glucose results. Patient Description: (B) Diabetic OR steroids OR vasopressors Is this a Type 1 Diabetic Patient? Yes For Downtime Calculator, use: Insulin Infusion NON-DKA Start: 11-27-2023 End: 11-27-2023 0-10 Units, Intravenous, Con tinuous PRN, IF indicated in the Insulin infusion MAR calculator x 1 dose, Starting on 11/27/23 at 0439, For 1 dose Patient Description: (B) Diabetic OR steroids OR vasopressors Is this a Type 1 Diabetic Patient? Yes For Downtime Calculator, use: Insulin Infusion NON-DKA Start: 11-26-2023 End: 11-26-2023 insulin regular (HumuLIN R) injection 10 Units Start: 10-11-2023 End: 10-12-2023 insulin regular 100 unit/100 mL (1 unit/mL) in 0.9 % NaCl infusion Start: 10-11-2023 End: 10-11-2023 insulin regular (HumuLIN R) injection 9 Units lidocaine 0.04 mg/mg medicated patch (1 source) Antiarrhythmic, Amide Local Anesthetic Start: 10-27-2024 End: 10-28-2024 apply 1 dose transdermal route once daily 1 patch, Transdermal, Administer over 12 Hours, Daily, First dose on Wed10/27/24 at 2300, Apply to lower back for 12 hours, then remove patch for 12 hours. 50 ml magnesium sulfate 40 mg/ml injection (1 source) Start: 11-27-2023 End: 11-27-2023 2 g, Intravenous, at 50 mL/hr, Once, On Wed11/27/23 at 2230, For 1 dose 2gm IVPB over 60 minutes x 1 for serum Magnesium in range of 1.4-1.9 mg/dL per Critical/ Intermediate Care Electrolyte Replacement Therapy. melatonin 5 mg oral tablet (1 source) Start: 10-27-2024 End: 10-28-2024 take 5 mg by mouth once daily as needed for sleep 5 mg, Oral, Nightly PRN, Sleep, Starting on Wed10/27/24 at 1700 24 hr nicotine 0.875 mg/hr transdermal system (6 sources) Cholinergic Nicotinic Agonist Start: 10-14-2023 End: 02-24-2024 apply 1 dose transdermal route every twenty-four hours nicotine (Nicoderm CQ) 21 mg/24 hr patch Indications: Pneumonia of both lungs due to infectious organism, unspecified part of lung Place 1 patch over 24 hours on the skin once daily. Do not start before October 14, 2023. 30 patch 10/14/2023 02/24/2024 Discontinued (Therapy completed) Start: 10-11-2023 nicotine (Daniel derm CQ) 21 mg/24 hr patch 1 patch 2 ml ondansetron 2 mg/ml injection (1 source) Serotonin-3 Receptor Antagonist Start: 10-27-2024 End: 10-28-2024 take 4 mg intravenously every six hours as needed for nausea and vomiting 4 mg, Intravenous, Every 6 hours PRN, nausea, vomiting, Starting on Wed10/27/24 at 1700 perflutren lipid microspheres (Definity) injection 0.5-10 mL of dilution (1 source) Start: 10-11-2023 End: 10-11-2023 perflutren lipid microspheres (Definity) injection 0.5-10 mL of dilution piperacillin 3000 mg / tazobactam 375 mg injection (1 source) Penicillin-class Antibacterial, beta Lactamase Inhibitor Start: 11-26-2023 End: 11-26-2023 piperacillin-tazo bactam-dextrose (Zosyn) IV 3.375 g Sodium Chloride (8 sources) Start: 10-27-2024 End: 10-28-2024 sodium chloride (PF) (NS) flush 5 mL Start: 10-27-2024 End: 10-27-2024 take 100 mL intravenously every hour 100 mL/hr, Intravenous, Continuous, Starting on Wed10/27/24 at 2245, For 3 days Start: 10-27-2024 End: 10-27-2024 take 250 mL intravenously every hour 250 mL/hr, Intravenous, Continuous, Starting on Wed10/27/24 at 1130, For 4 hours Start: 10-27-2024 End: 10-27-2024 take 20 mL intravenously every hour 20 mL/hr, Intravenous, Continuous, Starting on Wed10/27/24 at 0700, Pre-Procedure Start: 10-27-2024 End: 10-27-2024 Starting on Wed10/27/24 at 0617, For 1 dose, Tessa Madera L: cabinet override Start: 10-11-2023 End: 10-11-2023 sodium chloride 0.9 % bolus 500 mL Start: 10-11-2023 End: 10-11-2023 sodium chloride 0.9% infusio n sodium zirconium cyclosilicate (LOKELMA) packet 10 g (1 source) Start: 10-28-2024 End: 10-28-2024 sodium zirconium cyclosilicate (LOKELMA) packet 10 g vancomycin in dextrose 5 % (Vancocin) IVPB 1,000 mg (1 source) Start: 11-26-2023 End: 11-26-2023 vancomycin in dextrose 5 % (Vancocin) IVPB 1,000 mg (4 sources) Start: 11-27-2023 End: 12-01-2023 take 500 mg intravenously every twenty-four hours 500 mg, Intravenous, at 250 mL/hr, Every 24 hours, First dose on Wed11/27/23 at 0430 Indication: CAP Start: 11-27-2023 End: 12-01-2023 [Order 1 Start] Name: Insert Indwelling Urethral Catheter Signed Summary: Routine, Once, On 11/27/23 at 0409, For 1 occurrence Indication(s): Hemodynamic instability, active titration of vasopressors, diuretics or fluid boluses Removal Guidance: Remove PER NURSING POLICY [Order 1 End] [Order 2 Start] Name: Maintain and Assess Indwelling Urethral Catheter Signed Summary: Routine, Every 12 hours, First occurrence on 11/27/23 at 0800 Removal Guidance: Remove PER NURSING POLICY [Order 2 End] [Order 3 Start] Name: Remove and Discontinue Indwelling Urethral Catheter - Remove PER NURSING POLICY Signed Summary: Routine, Once, On 11/27/23 at 0409, For 1 occurrence Removal Guidance: Remove PER NURSING POLICY [Order 3 End] [Order 4 Start] Name: lidocaine HCL (UROJET/GLYDO) 2 % applicator 1 Application Signed Summary: 1 Application, Intra-urethral, As needed, For insertion of Urinary Catheter, Starting on 11/27/23 at 0408, For 1 dose [Order 4 End] Start: 11-27-2023 End: 12-01-2023 take 4 mg by mouth every six hours as needed for nausea and vomiting [Order 1 Start] Name: ondansetron (ZOFRAN-ODT) disintegrating tablet 4 mg Signed Summary: 4 mg, Oral, Every 6 hours PRN, nausea, vomiting, Starting on 11/27/23 at 0312 Use oral route first, if tolerated. Formulation requires tablet remain in sealed package until immediately prior to dose being administered. [Order 1 End] [Order 2 Start] Name: ondansetron (ZOFRAN) injection 4 mg Signed Summary: 4 mg, Intravenous, Every 6 hours PRN, nausea, vomiting, Starting on 11/27/23 at 0312 Use oral route first, if tolerated. [Order 2 End] Start: 11-27-2023 End: 12-01-2023 [Order 1 Start] Name: Saline lock IV Signed Summary: Routine, Continuous, Starting on 11/27/23 at 0313, Until Specified [Order 1 End] [Order 2 Start] Name: sodium chloride (PF) (NS) flush 5 mL Signed Summary: 5 mL, Intravenous, As needed, line care, Starting on 11/27/23 at 0312 [Order 2 End] [Order 3 Start] Name: sodium chloride (PF) (NS) flush 5 mL Signed Summary: 5 mL, Intravenous, Every 8 hours scheduled, First dose on 11/27/23 at 0600 Saline lock [Order 3 End] [Order 4 Start] Name: sodium chloride 0.9% (NS) Signed Summary: 0-150 mL/hr, Intravenous, As needed, To flush line after IV infusions when no maintenance IV ordered or a compatibility issue. Infuse 20ml at the same rate as the secondary infusion, Starting on 11/27/23 at 0312 Run as Primary IV. NOT intended for KVO. [Order 4 End] Problems Active Problems Problem Classification Problem Date Documented Da te Episodic/Chronic Acute and unspecified renal failure (3 sources) Acute injury of kidney; Translations: [Acute kidney failure, unspecified] Onset: 02-28-2025 11-26-2023 Episodic Acute myocardial infarction (20 sources) Myocardial infarction; Translations: [Non-ST elevation (NSTEMI) myocardial infarction] Onset: 11-27-2023 11-26-2023 Chronic Chronic kidney disease (20 sources) Chronic kidney disease; Translations: [Chronic kidney disease, unspecified] Onset: 07-30-2023 Chronic Chronic kidney disease (6 sources) Chronic kidney disease; Translations: [Chronic kidney disease, stage 3b (Multi)] Onset: 08-25-2023 Chronic obstructive pulmonary disease and bronchiectasis (3 sources) Pulmonary emphysema; Translations: [Emphysema, unspecified] Onset: 10-27-2024 10-27-2024 Chronic Congestive heart failure; nonhypertensive (10 sources) Acute congestive heart failure; Translations: [Heart failure, unspecified] Onset: 10-18-2024 10-11-2023 Chronic Coronary atherosclerosis and other heart disease (9 sources) Coronary arteriosclerosis; Translations: [Atherosclerotic heart disease of [place] coronary artery without angina pectoris] Onset: 10-17-2024 11-07-2024 Chronic Diabetes mellitus with complications (20 sources) [...] [Essential (primary) hypertension] Onset: 03-01-2011 01-09-2016 Chronic Fluid and electrolyte disorders (2 sources) Hyperkalemia; Translations: [Hyperkalemia] Onset: 02-28-2025 Episodic Hyperplasia of prostate (1 source) Benign prostatic hyperplasia without lower urinary tract symptoms; Translations: [Benign prostatic hyperplasia without lower urinry tract symp] Onset: 07-30-2023 Chronic Hypertension with complications and secondary hypertension (7 sources) Hypertensive emergency; Translations: [Hypertensive emergency] Onset: 09-14-2024 10-18-2024 Chronic Occlusion or stenosis of precerebral arteries (20 sources) Bilateral carotid artery stenosis; Translations: [Occlusion and stenosis of bilateral carotid arteries] Onset: 02-18-2021 Chronic Osteoarthritis (11 sources) Arthritis; Translations: [Arthropathy, unspecified, site unspecified] Onset: 08-24-2023 08-24-2023 Chronic Other acquired deformities (1 source) Scoliosis of lumbar spine; Translations: [Scoliosis, unspecified] 04-07-2024 Chronic Other acquired deformities (1 source) Lumbar spondylolisthesis; Translations: [Spondylolisthesis, lumbar region] 04-07-2024 Episodic Other aftercare (1 source) Post-discharge follow-up; Translations: [Encounter for follow-up examination after completed treatment for conditions other than malignant neoplasm] 03-09-2025 Episodic Other and ill-defined heart disease (5 sources) Systolic dysfunction; Translations: [Other ill-defined heart diseases] 10-21-2023 Chronic Other and ill-defined heart disease (2 sources) Other ill-defined heart diseases; Translations: [Other ill-defined heart diseases] Onset: 10-18-2024 Chronic Other lower respiratory disease (1 source) Acute cardiac pulmonary edema ; Translations: [Acute pulmonary edema] 09-22-2024 Episodic Other non-epithelial cancer of skin (4 sources) Squamous cell carcinoma of skin of ear; Translations: [Squamous cell carcinoma of skin of unspecified ear and external auricular canal] 08-12-2021 Episodic Peripheral and visceral atherosclerosis (6 sources) Intermittent claudication; Translations: [Peripheral vascular disease, unspecified] Onset: 10-18-2024 10-18-2024 Chronic Pneumonia (except that caused by tuberculosis or sexually transmitted disease) (4 sources) Infective pneumonia; Translations: [Pneumonia, unspecified organism] Onset: 02-28-2025 10-11-2023 Episodic Respiratory failure; insufficiency; arrest (adult) (1 source) Acute on chronic hypoxemic respiratory failure; Translations: [Acute and chronic respiratory failure with hypoxia] 11-30-2023 Chronic Septicemia (except in labor) (3 sources) Sepsis; Translations: [Sepsis, unspecified organism] Onset: 02-28-2025 11-30-2023 Episodic Spondylosis; intervertebral disc disorders; other back problems (20 sources) Degeneration of lumbar intervertebral disc; Translations: [Degeneration of lumbar or lumbosacral intervertebral disc] Onset: 01-25-2023 08-24-2023 Chronic Thyroid disorders (20 sources) Thyrotoxicosis; Translations: [Thyrotoxicosis, unspecified without thyrotoxic crisis or storm] Onset: 03-01-2011 05-19-2016 Chronic Unclassified (14 sources) Patient encounter status; Translations: [Prostate cancer screening] Onset: 03-01-2011 10-29-2017 Unclassified (2 sources) Screening status; Translations: [Prostate cancer screening] Onset: 03-01-2011 10-29-2017 Unclassified (1 source) Low back pain, unspecified; Translations: [Low back pain, unspecified] Onset: 04-06-2024 Past or Other Problems Problem Classification Problem Date Documented Da te Episodic/Chronic Diabetes mellitus without complication (18 sources) Hyperglycemia; Translations: [Hyperglycemia, unspecified] Onset: 10-27-2024 10-27-2024 Episodic Genitourinary symptoms and ill-defined conditions (2 sources) Proteinuria, unspecified; Translations: [Proteinuria, unspecified] Onset: 02-07-2024 Episodic Malaise and fatigue (20 sources) Fatigue; Translations: [Other fatigue] Onset: 10-18-2024 10-18-2024 Episodic Other lower respiratory disease (20 sources) Dyspnea; Translations: [Shortness of breath] Onset: 10-18-2024 10-18-2024 Episodic Other lower respiratory disease (3 sources) Shortness of breath; Translations: [Shortness of breath] Onset: 10-18-2024 Episodic Other lower respiratory disease (1 source) Acute pulmonary edema; Translations: [Acute pulmonary edema] Onset: 09-14-2024 Episodic Other screening for suspected conditions (not mental disorders or infectious disease) (20 sources) Patient encounter status; Translations: [Encounter for screening for malignant neoplasm of prostate] Onset: 03-01-2011 10-29-2017 Episodic Respiratory failure; insufficiency; arrest (adult) (3 sources) Acute respiratory failure; Translations: [Acute respiratory failure with hypoxia] Onset: 09-14-2024 10-11-2023 Episodic Spondylosis; intervertebral disc disorders; other back problems (2 sources) Low back pain; Translations: [Low back pain] Onset: 05-25-2024 04-06-2024 Episodic Viral infection (11 sources) Disease caused by 2019-nCoV; Translations: [COVID-19] Onset: 10-11-2023 Resolved: 10-13-2023 10-11-2023 Episodic Results Test Name Value Interpretation Reference Range Facility BASIC METABOLIC PANEL WITH A EDILMA GONZALEZon 03-24-2025 Calcium [Mass/Vol] 8.6 mg/dL Normal 8.6-10.3 [facility] Comment on above: Performed By: #### 9 2498 #### [facility] [place] [address] Turning Machine Operator: Jadon Velez MD Chloride [Moles/Vol] 104 mmol/L Normal 98-110 [facility] Comment on above: Performed By: #### 9 2498 #### [facility] [place] [address] Turning Machine Operator: Jadon Velez MD CO2 [Moles/Vol] 23 mmol/L Normal 20-32 [facility] Comment on above: Performed By: #### 9 2498 #### [facility] [place] [address] Turning Machine Operator: Jadon Velez MD Creatinine [Mass/Vol] 1.96 mg/dL High 0.70-1.[address] [facility] Comment on above: Performed By: #### 9 2498 #### [facility] of [address], [address] [place] [address] Turning Machine Operator: Jadon Velez MD ELECTROLYTE BALANCE 11 mmol/L (calc) Normal 7-17 [facility] Comment on above: Performed By: #### 9 2498 #### [facility] of [address], [address] [place] [address] Turning Machine Operator: Jadon Velez MD GFR/1.73 sq M.predicted among non-blacks MDRD (S/P/Bld) [Vol rate/Area] 34 mL/min/{1.73_m2} Low > OR = 60 [facility] Comment on above: Performed By: #### 9 2498 #### [facility] of [place] [address] Turning Machine Operator: Jadon Velez MD Glucose [Mass/Vol] 301 mg/dL High 65-99 [facility] Comment on above: Result Comment: Fasting reference interval For someone without known diabetes, a glucose value >125 mg/dL indicates that they may have diabetes and this should be confirmed with a follow-up test. Performed By: #### 9 2498 #### [facility] [place] [address] Turning Machine Operator: Jadon Velez MD Potassium [Moles/Vol] 4.2 mmol/L Normal 3.5-5.[address] [facility] Comment on above: Performed By: #### 9 2498 #### [facility] of [place] [address] Turning Machine Operator: Jadon Velez MD Sodium [Moles/Vol] 138 mmol/L Normal 135-146 [facility] Comment on above: Performed By: #### 9 2498 #### [facility] of [place] [address] Turning Machine Operator: Jadon Velez MD Urea nitrogen [Mass/Vol] 39 mg/dL High 7-25 [facility] Comment on above: Performed By: #### 9 7918 #### [facility] of [address], [address] [place] [address] Turning Machine Operator: Jadon Velez MD Urea nitrogen/Creatinine [Mass ratio] 20 mg/mg Normal 6-22 [facility] Comment on above: Performed By: #### 9 2498 #### [facility] [address], [address] [place] [address] Turning Machine Operator: Jadon Velez MD APTT HEPARIN COVERAGEon aPTT Coag (Bld) [Time] 86 s High 23-[address] [facility] Comment on above: Order Comment: Thera peutic range for APTT's is 68 - 104 seconds Performed By: #### 4 6848 ####[facility] [address] [place] [address] Moody Martinez M.D. [id number] BASIC METABOLIC PANELon Anion gap [Moles/Vol] 15 mmol/L Normal 10-20 [facility] Comment on above: Order Comment: Injur y/Trauma or Illness?:Illness/Other How long have you had these symptoms (acute/chronic)?:Acute Reason for exam?:cross clamp of aorta for CPB Type of Exam?:Initial Additional signs and symptoms?:cp Performed By: #### 4 6124 #### [facility] [address] [place] [address] Moody Martinez M.D. [id number] Calcium [Mass/Vol] 8.3 mg/dL Low 8.4-10.2 [facility] Comment on above: Order Comment: Injur y/Trauma or Illness?:Illness/Other How long have you had these symptoms (acute/chronic)?:Acute Reason for exam?:cross clamp of aorta for CPB Type of Exam?:Initial Additional signs and symptoms?:cp Performed By: #### 4 6119 ####[facility] [address] [place] [address] Moody Martinez M.D. [id number] Chloride [Moles/Vol] 103 mmol/L Normal 98-108 [facility] Comment on above: Order Comment: Injur y/Trauma or Illness?:Illness/Other How long have you had these symptoms (acute/chronic)?:Acute Reason for exam?:cross clamp of aorta for CPB Type of Exam?:Initial Additional signs and symptoms?:cp Performed By: #### 4 6116 #### [facility] [address] [place] [address] Moody Martinez M.D. [id number] Creatinine [Mass/Vol] 1.80 mg/dL High 0.80-1.30 [facility] Comment on above: Order Comment: Injur y/Trauma or Illness?:Illness/Other How long have you had these symptoms (acute/chronic)?:Acute Reason for exam?:cross clamp of aorta for CPB Type of Exam?:Initial Additional signs and symptoms?:cp Performed By: #### 4 6125 #### [facility] [address] [place] [address] Moody Martinez M.D. [id number] EGFR 37 mL/min/1.73 m2 Low >=60 [facility] Comment on above: Order Comment: Injur y/Trauma or Illness?:Illness/Other How long have you had these symptoms (acute/chronic)?:Acute Reason for exam?:cross clamp of aorta for CPB Type of Exam?:Initial Additional signs and symptoms?:cp Result Comment: Albin mated GFR was calculated using the 2020 CKD-EPI creatinine equation. Performed By: #### 4 61 #### [facility] [address] [place] [address] Moody Martinez M.D. [id number] Glucose [Mass/Vol] 156 mg/dL High 65-99 [facility] Comment on above: Order Comment: Injur y/Trauma or Illness?:Illness/Other How long have you had these symptoms (acute/chronic)?:Acute Reason for exam?:cross clamp of aorta for CPB Type of Exam?:Initial Additional signs and symptoms?:cp Performed By: #### 4 6102 #### [facility] [address] [place] [address] Moody Martinez M.D. [id number] HCO3 (Bld) [Moles/Vol] 26 mmol/L Normal 21-[address] 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 [id number] Potassium [Moles/Vol] 3.7 mmol/L Normal 3.5-5.1 [facility] Comment on above: Order Comment: Injur y/Trauma or Illness?:Illness/Other How long have you had these symptoms (acute/chronic)?:Acute Reason for exam?:cross clamp of aorta for CPB Type of Exam?:Initial Additional signs and symptoms?:cp Performed By: #### 4 6124 #### [facility] [address] [place] [address] Moody Martinez M.D. [id number] Sodium [Moles/Vol] 140 mmol/L Normal 135-145 [facility] Comment on above: Order Comment: Injur y/Trauma or Illness?:Illness/Other How long have you had these symptoms (acute/chronic)?:Acute Reason for exam?:cross clamp of aorta for CPB Type of Exam?:Initial Additional signs and symptoms?:cp Performed By: #### 4 6124 #### [facility] [address] [place] [address] Moody Martinez M.D. [id number] Urea nitrogen [Mass/Vol] 39 mg/dL High 8-25 [facility] Comment on above: Order Comment: Injur y/Trauma or Illness?:Illness/Other How long have you had these symptoms (acute/chronic)?:Acute Reason for exam?:cross clamp of aorta for CPB Type of Exam?:Initial Additional signs and symptoms?:cp Performed By: #### 4 6124 #### [facility] [address] [place] [address] Moody Martinez M.D. [id number] Urea nitrogen/Creatinine [Mass ratio] 21.7 mg/mg High 10.0-20.0 [facility] Comment on above: Order Comment: Injur y/Trauma or Illness?:Illness/Other How long have you had these symptoms (acute/chronic)?:Acute Reason for exam?:cross clamp of aorta for CPB Type of Exam?:Initial Additional signs and symptoms?:cp Performed By: #### 4 6124 #### [facility] [address] [place] [address] Moody Martinez M.D. [id number] CBCon 03-05-2025 AUTO NRBC 0.0 % Normal [facility] Comment on above: Performed By: #### 4 5218 #### [facility] [address] [place] [address] Moody Martinez M.D. [id number] AUTO NRBC ABS COUNT 0.00 K/mcL Normal 0.00-0.00 [facility] Comment on above: Performed By: #### 4 5218 #### [facility] [address] [place] [address] Moody Martinez M.D. [id number] Erythrocyte distribution width (RBC) [Ratio] 13.0 % Normal 11.6-14.8 [facility] Comment on above: Performed By: #### 4 5218 #### [facility] [address] [place] [address] Moody Martinez M.D. [id number] Hematocrit (Bld) [Volume fraction] 28.4 % Low 41.0-53.0 [facility] Comment on above: Performed By: #### 4 5218 #### [facility] [address] [place] [address] Moody Martinez M.D. [id number] Hemoglobin (Bld) [Mass/Vol] 9.3 g/dL Low 13.5-17.5 [facility] Comment on above: Performed By: #### 4 5218 #### [facility] [address] [place] [address] Moody Martinez M.D. [id number] MCH (RBC) [Entitic mass] 30.3 pg Normal 26.0-34.0 [facility] Comment on above: Performed By: #### 4 5218 #### [facility] [address] [place] [address] Moody Martinez M.D. [id number] MCV (RBC) [Entitic vol] 92.5 fL Normal 80.0-100.0 [facility] Comment on above: Performed By: #### 4 5218 #### [facility] [address] [place] [address] Moody Martinez M.D. [id number] MEAN CORPUSCULAR HEMOGLOBIN CONC 32.7 g/dL Normal 31.0-37.0 [facility] Comment on above: Performed By: #### 4 5218 #### [facility] [address] [place] [address] Moody Martinez M.D. [id number] Platelet mean volume (Bld) [Entitic vol] 11.8 fL Normal 9.4-12.4 [facility] Comment on above: Performed By: #### 4 5218 #### [facility] [address] [place] [address] Moody Martinez M.D. [id number] Platelets (Bld) [#/Vol] 191 10*3/uL Normal 150-400 [facility] Comment on above: Performed By: #### 4 5218 #### [facility] [address] [place] [address] Moody Martinez M.D. [id number] RBC (Bld) [#/Vol] 3.07 10*6/uL Low 4.50-5.90 [facility] Comment on above: Performed By: #### 4 5218 #### [facility] [address] [place] [address] Moody Martinez M.D. [id number] WBC (Bld) [#/Vol] 9.14 10*3/uL Normal 4.50-11.00 [facility] Comment on above: Performed By: #### 4 5218 #### [facility] [address] [place] [address] Moody Martinez M.D. [id number] MAGNESIUM LEVELon 03-05-2025 Magnesium [Mass/Vol] 2.2 mg/dL Normal 1.6-2.4 [facility] Comment on above: Performed By: #### 4 6109 ####[facility] [address] [place] [address] Moody Martinez M.D. [id number] [facility] Glucose [Mass/Vol] 249 mg/dL High [address] [place] [address] Comment on above: Performed By: #### 4 6932 ####[facility] [address] [place] [address] Moody Martinez M.D. [id number] Glucose [Mass/Vol] 188 mg/dL High [address] [place] [address] Comment on above: Performed By: #### 4 6932 ####[facility] [address] [place] [address] Moody Martinez M.D. [id number] Glucose [Mass/Vol] 115 mg/dL [address] Comment on above: Performed By: #### 4 6932 ####[facility] [address] [place] [address] Moody Martinez M.D. [id number] POTASSIUM LEVELon 03-05-2025 Potassium [Moles/Vol] 3.4 mmol/L Low 3.5-5.1 [facility] Comment on above: Performed By: #### 4 6351 #### [facility] [address] [place] [address] Moody Martinez M.D. [id number] APTT HEPARIN COVERAGEon aPTT Coag (Bld) [Time] 72 s High 23-[address] [facility] Comment on above: Order Comment: Thera peutic range for APTT's is 68 - 104 seconds Performed By: #### 4 4014 #### [facility] [address] [place] [address] Moody Martinez M.D. [id number] BASIC METABOLIC PANELon Anion gap [Moles/Vol] 16 mmol/L Normal 10-20 [facility] Comment on above: Order Comment: [facility] has implemented the eGFR calculation approach that does not have a coefficient for race that conforms to the NKF-ASN Task Force Recommendations. Performed By: #### 4 6124 #### [facility] [address] [place] [address] Moody Martinez M.D. [id number] Calcium [Mass/Vol] 8.3 mg/dL Low 8.4-10.2 [facility] Comment on above: Order Comment: [facility] has implemented the eGFR calculation approach that does not have a coefficient for race that conforms to the NKF-ASN Task Force Recommendations. Performed By: #### 4 6124 #### [facility] [address] [place] [address] Moody Martinez M.D. [id number] Chloride [Moles/Vol] 103 mmol/L Normal 98-108 [facility] Comment on above: Order Comment: [facility] has implemented the eGFR calculation approach that does not have a coefficient for race that conforms to the NKF-ASN Task Force Recommendations. Performed By: #### 4 6124 #### [facility] [address] [place] [address] Moody Martinez M.D. [id number] Creatinine [Mass/Vol] 1.89 mg/dL High 0.80-1.30 [facility] Comment on above: Order Comment: [facility] has implemented the eGFR calculation approach that does not have a coefficient for race that conforms to the NKF-ASN Task Force Recommendations. Performed By: #### 4 6124 #### [facility] [address] [place] [address] Moody Martinez M.D. [id number] EGFR 35 mL/min/1.73 m2 Low >=60 [facility] Comment on above: Order Comment: [facility] has implemented the eGFR calculation approach that does not have a coefficient for race that conforms to the NKF-ASN Task Force Recommendations. Result Comment: Albin mated GFR was calculated using the 2020 CKD-EPI creatinine equation. Performed By: #### 4 6124 #### [facility] [address] [place] [address] Moody Martinez M.D. [id number] Glucose [Mass/Vol] 190 mg/dL High 65-99 [facility] Comment on above: Order Comment: [facility] has implemented the eGFR calculation approach that does not have a coefficient for race that conforms to the NKF-ASN Task Force Recommendations. Performed By: #### 4 6124 #### [facility] [address] [place] [address] Moody Martinez M.D. [id number] HCO3 (Bld) [Moles/Vol] 25 mmol/L Normal 21-[address] [facility] Comment on above: Order Comment: [facility] has implemented the eGFR calculation approach that does not have a coefficient for race that conforms to the NKF-ASN Task Force Recommendations. Performed By: #### 4 6124 #### [facility] [address] [place] [address] Moody Martinez M.D. [id number] Potassium [Moles/Vol] 3.5 mmol/L Normal 3.5-5.1 [facility] Comment on above: Order Comment: [facility] has implemented the eGFR calculation approach that does not have a coefficient for race that conforms to the NKF-ASN Task Force Recommendations. Performed By: #### 4 6124 #### [facility] [address] [place] [address] Moody Martinez M.D. [id number] Sodium [Moles/Vol] 140 mmol/L Normal 135-145 [facility] Comment on above: Order Comment: [facility] has implemented the eGFR calculation approach that does not have a coefficient for race that conforms to the NKF-ASN Task Force Recommendations. Performed By: #### 4 6107 #### [facility] [address] [place] [address] Moody Martinez M.D. [id number] Urea nitrogen [Mass/Vol] 45 mg/dL High 8-25 [facility] Comment on above: Order Comment: [facility] has implemented the eGFR calculation approach that does not have a coefficient for race that conforms to the NKF-ASN Task Force Recommendations. Performed By: #### 4 6124 #### [facility] [address] [place] [address] Moody Martinez M.D. [id number] Urea nitrogen/Creatinine [Mass ratio] 23.8 mg/mg High 10.0-20.0 [facility] Comment on above: Order Comment: [facility] has implemented the eGFR calculation approach that does not have a coefficient for race that conforms to the NKF-ASN Task Force Recommendations. Performed By: #### 4 6124 #### [facility] [address] [place] [address] Moody Martinez M.D. [id number] CBCon 03-04-2025 AUTO NRBC 0.0 % Normal [facility] Comment on above: Performed By: #### 4 5218 #### [facility] [address] [place] [address] Moody Martinez M.D. [id number] AUTO NRBC ABS COUNT 0.00 K/mcL Normal 0.00-0.00 [facility] Comment on above: Performed By: #### 4 5218 #### [facility] [address] [place] [address] Moody Martinez M.D. [id number] Erythrocyte distribution width (RBC) [Ratio] 13.1 % Normal 11.6-14.8 [facility] Comment on above: Performed By: #### 4 5218 #### [facility] [address] [place] [address] Moody Martinez M.D. [id number] Hematocrit (Bld) [Volume fraction] 28.1 % Low 41.0-53.0 [facility] Comment on above: Performed By: #### 4 5218 #### [facility] [address] [place] [address] Moody Mratinez M.D. [id number] Hemoglobin (Bld) [Mass/Vol] 9.0 g/dL Low 13.5-17.5 [facility] Comment on above: Performed By: #### 4 5218 #### [facility] [address] [place] [address] Moody Martinez M.D. [id number] MCH (RBC) [Entitic mass] 30.6 pg Normal 26.0-34.0 [facility] Comment on above: Performed By: #### 4 5218 #### [facility] [address] [place] [address] Moody Martinez M.D. [id number] MCV (RBC) [Entitic vol] 95.6 fL Normal 80.0-100.0 [facility] Comment on above: Performed By: #### 4 5218 #### [facility] [address] [place] [address] Moody Martinez M.D. [id number] MEAN CORPUSCULAR HEMOGLOBIN CONC 32.0 g/dL Normal 31.0-37.0 [facility] Comment on above: Performed By: #### 4 5218 #### [facility] [address] [place] [address] Moody Martinez M.D. [id number] Platelet mean volume (Bld) [Entitic vol] 11.8 fL Normal 9.4-12.4 [facility] Comment on above: Performed By: #### 4 5218 #### [facility] [address] [place] [address] Moody Martinez M.D. [id number] Platelets (Bld) [#/Vol] 175 10*3/uL Normal 150-400 [facility] Comment on above: Performed By: #### 4 5218 #### [facility] [address] [place] [address] Moody Martinez M.D. [id number] RBC (Bld) [#/Vol] 2.94 10*6/uL Low 4.50-5.90 [facility] Comment on above: Performed By: #### 4 5218 #### [facility] [address] [place] [address] Moody Martinez M.D. [id number] WBC (Bld) [#/Vol] 8.08 10*3/uL Normal 4.50-11.00 [facility] Comment on above: Performed By: #### 4 5218 #### [facility] [address] [place] [address] Moody Martinez M.D. [id number] MAGNESIUM LEVELon 03-04-2025 Magnesium [Mass/Vol] 2.2 mg/dL Normal 1.6-2.4 [facility] Comment on above: Performed By: #### 4 6109 #### [facility] [address] [place] [address] Moody Martinez M.D. [id number] POC GLUCOSE - [facility] 025 Glucose [Mass/Vol] 51 mg/dL Off scale low [address] [place] [address] Comment on above: Order Comment: Criti christian result acted upon time of test. Test performed at bedside. Performed By: #### 4 6932 ####[facility] [address] [place] [address] Moody Martinez M.D. [id number] Glucose [Mass/Vol] 354 mg/dL [address] Comment on above: Performed By: #### 4 6932 ####[facility] [address] [place] [address] Moody Martinez M.D. [id number] Glucose [Mass/Vol] 338 mg/dL [address] Comment on above: Performed By: #### 4 6932 #### [facility] [address] [place] [address] Moody Martinez M.D. [id number] Glucose [Mass/Vol] 258 mg/dL [address] Comment on above: Performed By: #### 4 6932 ####[facility] [address] [place] [address] Moody Martinez M.D. [id number] Glucose [Mass/Vol] 242 mg/dL [address] Comment on above: Performed By: #### 4 6955 ####[facility] [address] [place] [address] Moody Martinez M.D. [id number] POTASSIUM LEVELon 03-04-2025 Potassium [Moles/Vol] 4.1 mmol/L Normal 3.5-5.1 [facility] Comment on above: Result Comment: Slchuy htly Hemolyzed Performed By: #### 4 6351 ####[facility] [address] [place] [address] Moody Martinez M.D. [id number] TROPONIN (ONCE)on 03-04-2025 BASELINE TROPONIN T NG/L 1494 ng/L Off scale high <=22 [facility] Comment on above: Performed By: #### L [id number] ####[facility] [address] [address] Moody Martinez M.D. [id number] TROPONIN T INTERPRETATION Possible acute cardiac injury. Normal [facility] Comment on above: Performed By: #### L [id number] ####[facility] [address] [address] Moody Martinez M.D. [id number] APTT HEPARIN COVERAGEon 05 aPTT Coag (Bld) [Time] 82 s High 23-[address] [facility] Comment on above: Order Comment: Thera peutic range for APTT's is 68 - 104 seconds Performed By: #### 4 6932 #### [facility] [address] [address] Moody Martinez M.D. [id number] aPTT Coag (Bld) [Time] 92 s High 23-[address] [facility] Comment on above: Order Comment: Thera peutic range for APTT's is 68 - 104 seconds Performed By: #### 4 6848 ####[facility] [address] [address] Moody Martinez M.D. [id number] aPTT Coag (Bld) [Time] 67 s High 23-[address] [facility] Comment on above: Order Comment: Injur y/Trauma or Illness?:Illness/Other How long have you had these symptoms (acute/chronic)?:Acute Reason for exam?:cross clamp of aorta for CPB Type of Exam?:Initial Additional signs and symptoms?:cp Performed By: #### 4 6848 #### LAB [address] [id number] Moody Martinez M.D. [id number] BASIC METABOLIC PANELon 05-0 Anion gap [Moles/Vol] 15 mmol/L Normal 10-20 [facility] Comment on above: Order Comment: [facility] has implemented the eGFR calculation approach that does not have a coefficient for race that conforms to the NKF-ASN Task Force Recommendations. Performed By: #### 4 6124 #### LAB [address] [address] Moody Martinez M.D. [id number] Calcium [Mass/Vol] 8.3 mg/dL Low 8.4-10.2 [facility] Comment on above: Order Comment: [facility] has implemented the eGFR calculation approach that does not have a coefficient for race that conforms to the NKF-ASN Task Force Recommendations. Performed By: #### 4 6124 #### LAB [address] [address] Moody Martinez M.D. [id number] Chloride [Moles/Vol] 103 mmol/L Normal 98-108 [facility] Comment on above: Order Comment: [facility] has implemented the eGFR calculation approach that does not have a coefficient for race that conforms to the NKF-ASN Task Force Recommendations. Performed By: #### 4 6124 #### LAB [address] [address] Moody Martinez M.D. [id number] Creatinine [Mass/Vol] 2.09 mg/dL High 0.80-1.30 [facility] Comment on above: Order Comment: [facility] has implemented the eGFR calculation approach that does not have a coefficient for race that conforms to the NKF-ASN Task Force Recommendations. Performed By: #### 4 6124 #### LAB [address] [address] Moody Martinez M.D. [id number] EGFR 31 mL/min/1.73 m2 Low >=60 [facility] Comment on above: Order Comment: [facility] has implemented the eGFR calculation approach that does not have a coefficient for race that conforms to the NKF-ASN Task Force Recommendations. Result Comment: Albin mated GFR was calculated using the 2020 CKD-EPI creatinine equation. Performed By: #### 4 6124 #### LAB [address] [address] Moody Martinez M.D. [id number] Glucose [Mass/Vol] 240 mg/dL High 65-99 [facility] Comment on above: Order Comment: [facility] has implemented the eGFR calculation approach that does not have a coefficient for race that conforms to the NKF-ASN Task Force Recommendations. Performed By: #### 4 6124 #### LAB [address] [address] Moody Martinez M.D. [id number] HCO3 (Bld) [Moles/Vol] 26 mmol/L Normal 21-[address] [facility] Comment on above: Order Comment: [facility] has implemented the eGFR calculation approach that does not have a coefficient for race that conforms to the NKF-ASN Task Force Recommendations. Performed By: #### 4 6124 #### LAB [address] [address] Moody Martinez M.D. [id number] Potassium [Moles/Vol] 3.6 mmol/L Normal 3.5-5.1 [facility] Comment on above: Order Comment: [facility] has implemented the eGFR calculation approach that does not have a coefficient for race that conforms to the NKF-ASN Task Force Recommendations. Performed By: #### 4 6124 #### LAB [address] [address] Moody Martinez M.D. [id number] Sodium [Moles/Vol] 140 mmol/L Normal 135-145 [facility] Comment on above: Order Comment: [facility] has implemented the eGFR calculation approach that does not have a coefficient for race that conforms to the NKF-ASN Task Force Recommendations. Performed By: #### 4 6124 #### LAB [address] [address] Moody Martinez M.D. [id number] Urea nitrogen [Mass/Vol] 49 mg/dL High 8-25 [facility] Comment on above: Order Comment: [facility] has implemented the eGFR calculation approach that does not have a coefficient for race that conforms to the NKF-ASN Task Force Recommendations. Performed By: #### 4 6124 #### LAB [address] [address] Moody Martinez M.D. [id number] Urea nitrogen/Creatinine [Mass ratio] 23.4 mg/mg High 10.0-20.0 [facility] Comment on above: Order Comment: [facility] has implemented the eGFR calculation approach that does not have a coefficient for race that conforms to the NKF-ASN Task Force Recommendations. Performed By: #### 4 6124 #### LAB [address] [address] Moody Martinez M.D. [id number] CBCon 03-03-2025 AUTO NRBC 0.0 % Normal [facility] Comment on above: Performed By: #### 4 [id number] #### LAB [address] [address] Moody Martinez M.D. [id number] AUTO NRBC ABS COUNT 0.00 K/mcL Normal 0.00-0.00 [facility] Comment on above: Performed By: #### 4 5218 #### LAB [address] [id number] Moody Martinez M.D. [id number] Erythrocyte distribution width (RBC) [Ratio] 13.5 % Normal 11.6-14.8 [facility] Comment on above: Performed By: #### 4 5218 #### LAB [address] [address] Moody Martinez M.D. [id number] Hematocrit (Bld) [Volume fraction] 28.5 % Low 41.0-53.0 [facility] Comment on above: Performed By: #### 4 5218 #### LAB [address] [address] Moody Martinez M.D. [id number] Hemoglobin (Bld) [Mass/Vol] 9.3 g/dL Low 13.5-17.5 [facility] Comment on above: Performed By: #### 4 5218 #### LAB [address] [address] Moody Martinez M.D. [id number] MCH (RBC) [Entitic mass] 30.8 pg Normal 26.0-34.0 [facility] Comment on above: Performed By: #### 4 5218 #### LAB [address] [address] Moody Martinez M.D. [id number] MCV (RBC) [Entitic vol] 94.4 fL Normal 80.0-100.0 [facility] Comment on above: Performed By: #### 4 [id number] #### LAB [address] [address] Moody Martinez M.D. [id number] MEAN CORPUSCULAR HEMOGLOBIN CONC 32.6 g/dL Normal 31.0-37.0 [facility] Comment on above: Performed By: #### 4 [id number] #### LAB [address] [address] Moody Martinez M.D. [id number] Platelet mean volume (Bld) [Entitic vol] 11.8 fL Normal 9.4-12.4 [facility] Comment on above: Performed By: #### 4 5218 #### LAB [address] [address] Moody Martinez M.D. [id number] Platelets (Bld) [#/Vol] 159 10*3/uL Normal 150-400 [facility] Comment on above: Performed By: #### 4 5218 #### LAB [address] [address] Moody Martinez M.D. [id number] RBC (Bld) [#/Vol] 3.02 10*6/uL Low 4.50-5.90 [facility] Comment on above: Performed By: #### 4 5218 ####[facility] [address] [address] Moody Martinez M.D. [id number] WBC (Bld) [#/Vol] 10.19 10*3/uL Normal 4.50-11.00 [facility] Comment on above: Performed By: #### 4 5218 ####[facility] [address] [address] Moody Martinez M.D. [id number] MAGNESIUM LEVELon 03-03-2025 Magnesium [Mass/Vol] 2.3 mg/dL Normal 1.6-2.4 [facility] Comment on above: Performed By: #### 4 6109 ####[facility] [address] [address] Moody Martinez M.D. [id number] POC GLUCOSE - [facility] 025 Glucose [Mass/Vol] 221 mg/dL High [address] [place] [address] Comment on above: Performed By: #### L [id number] #### [facility] [address] [address] Moody Martinez M.D. [id number] Glucose [Mass/Vol] 189 mg/dL High [address] [place] [address] Comment on above: Performed By: #### 4 6932 ####[facility] [address] [address] Moody Martinez M.D. [id number] Glucose [Mass/Vol] 91 mg/dL Normal [address] [place] [address] Comment on above: Performed By: #### 4 6932 ####[facility] [address] [address] Moody Martinez M.D. [id number] Glucose [Mass/Vol] 146 mg/dL High [address] [place] [address] Comment on above: Performed By: #### 4 6932 ####[facility] [address] [id number] Moody Martinez M.D. [id number] TROPONIN (ONCE)on 03-03-2025 BASELINE TROPONIN T NG/L 1524 ng/L Off scale high <=22 [facility] Comment on above: Performed By: #### 4 6932 #### LAB [address] [address] Moody Martinez M.D. [id number] TROPONIN T INTERPRETATION Possible acute cardiac injury. Normal [facility] Comment on above: Performed By: #### 4 6932 #### LAB [address] [address] Moody Martinez M.D. [id number] APTT HEPARIN COVERAGEon aPTT Coag (d) [Time] 97 s High 23-[address] [facility] Comment on above: Order Comment: Thera peutic range for APTT's is 68 - 104 seconds Performed By: #### 4 6848 #### LAB [address] [address] Moody Martinez M.D. [id number] BASIC METABOLIC PANELon Anion gap [Moles/Vol] 17 mmol/L Normal 10-20 [facility] Comment on above: Order Comment: [facility] has implemented the eGFR calculation approach that does not have a coefficient for race that conforms to the NKF-ASN Task Force Recommendations. Performed By: #### 4 6124 #### LAB [address] [address] Moody Martinez M.D. [id number] Calcium [Mass/Vol] 8.7 mg/dL Normal 8.4-10.2 [facility] Comment on above: Order Comment: [facility] has implemented the eGFR calculation approach that does not have a coefficient for race that conforms to the NKF-ASN Task Force Recommendations. Performed By: #### 4 6124 #### LAB [address] [address] Moody Martinez M.D. [id number] Chloride [Moles/Vol] 101 mmol/L Normal 98-108 [facility] Comment on above: Order Comment: [facility] has implemented the eGFR calculation approach that does not have a coefficient for race that conforms to the NKF-ASN Task Force Recommendations. Performed By: #### 4 6124 #### LAB [address] [place], [place] [address] Moody Martinez M.D. [id number] Creatinine [Mass/Vol] 2.16 mg/dL High 0.80-1.30 [facility] Comment on above: Order Comment: [facility] has implemented the eGFR calculation approach that does not have a coefficient for race that conforms to the NKF-ASN Task Force Recommendations. Performed By: #### 4 6124 #### LAB [address] [address] Moody Martinez M.D. [id number] EGFR 30 mL/min/1.73 m2 Low >=60 [facility] Comment on above: Order Comment: [facility] has implemented the eGFR calculation approach that does not have a coefficient for race that conforms to the NKF-ASN Task Force Recommendations. Result Comment: Albin mated GFR was calculated using the 2020 CKD-EPI creatinine equation. Performed By: #### 4 6124 #### LAB [address] [id number] Moody Martinez M.D. [id number] Glucose [Mass/Vol] 170 mg/dL High 65-99 [facility] Comment on above: Order Comment: [facility] has implemented the eGFR calculation approach that does not have a coefficient for race that conforms to the NKF-ASN Task Force Recommendations. Performed By: #### 4 6124 ####[facility] [address] [id number] Moody Martinez M.D. [id number] HCO3 (Bld) [Moles/Vol] 25 mmol/L Normal 21-[address] [facility] Comment on above: Order Comment: [facility] has implemented the eGFR calculation approach that does not have a coefficient for race that conforms to the NKF-ASN Task Force Recommendations. Performed By: #### 4 6124 #### LAB [address] [place], [place] [address] Moody Martinez M.D. [id number] Potassium [Moles/Vol] 3.7 mmol/L Normal 3.5-5.1 [facility] Comment on above: Order Comment: [facility] has implemented the eGFR calculation approach that does not have a coefficient for race that conforms to the NKF-ASN Task Force Recommendations. Performed By: #### 4 6124 #### LAB [address] [address] Moody Martinez M.D. [id number] Sodium [Moles/Vol] 139 mmol/L Normal 135-145 [facility] Comment on above: Order Comment: [facility] has implemented the eGFR calculation approach that does not have a coefficient for race that conforms to the NKF-ASN Task Force Recommendations. Performed By: #### 4 6124 #### LAB [address] [address] Moody Martinez M.D. [id number] Urea nitrogen [Mass/Vol] 44 mg/dL High 8-25 [facility] Comment on above: Order Comment: [facility] has implemented the eGFR calculation approach that does not have a coefficient for race that conforms to the NKF-ASN Task Force Recommendations. Performed By: #### 4 6124 #### LAB [address] [address] Moody Martinez M.D. [id number] Urea nitrogen/Creatinine [Mass ratio] 20.4 mg/mg High 10.0-20.0 [facility] Comment on above: Order Comment: [facility] has implemented the eGFR calculation approach that does not have a coefficient for race that conforms to the NKF-ASN Task Force Recommendations. Performed By: #### 4 6124 #### LAB [address] [address] Moody Martinez M.D. [id number] CBCon 03-02-2025 AUTO NRBC 0.0 % Normal [facility] Comment on above: Order Comment: Injur y/Trauma or Illness?:Illness/Other How long have you had these symptoms (acute/chronic)?:Acute Reason for exam?:sob History of cancer?:. Surgeries, chemotherapy, or radiation?:cardiac catheterization Type of Exam?:Initial Additional signs and symptoms?:n Performed By: #### 4 5218 #### LAB [address] [address] Moody Martinez M.D. [id number] AUTO NRBC ABS COUNT 0.00 K/mcL Normal 0.00-0.00 [facility] Comment on above: Order Comment: Injur y/Trauma or Illness?:Illness/Other How long have you had these symptoms (acute/chronic)?:Acute Reason for exam?:sob History of cancer?:. Surgeries, chemotherapy, or radiation?:cardiac catheterization Type of Exam?:Initial Additional signs and symptoms?:n Performed By: #### 4 [id number] #### LAB [address] [address] Moody Martinez M.D. [id number] Erythrocyte distribution width (RBC) [Ratio] 13.4 % Normal 11.6-14.8 [facility] Comment on above: Order Comment: Injur y/Trauma or Illness?:Illness/Other How long have you had these symptoms (acute/chronic)?:Acute Reason for exam?:sob History of cancer?:. Surgeries, chemotherapy, or radiation?:cardiac catheterization Type of Exam?:Initial Additional signs and symptoms?:n Performed By: #### 4 5218 #### LAB [address] [address] Moody Martinez M.D. [id number] Hematocrit (Bld) [Volume fraction] 31.3 % Low 41.0-53.0 [facility] Comment on above: Order Comment: Injur y/Trauma or Illness?:Illness/Other How long have you had these symptoms (acute/chronic)?:Acute Reason for exam?:sob History of cancer?:. Surgeries, chemotherapy, or radiation?:cardiac catheterization Type of Exam?:Initial Additional signs and symptoms?:n Performed By: #### 4 5218 #### LAB [address] [address] Moody Martinez M.D. [id number] Hemoglobin (Bld) [Mass/Vol] 10.3 g/dL Low 13.5-17.5 [facility] Comment on above: Order Comment: Injur y/Trauma or Illness?:Illness/Other How long have you had these symptoms (acute/chronic)?:Acute Reason for exam?:sob History of cancer?:. Surgeries, chemotherapy, or radiation?:cardiac catheterization Type of Exam?:Initial Additional signs and symptoms?:n Performed By: #### 4 [id number] #### LAB [address] [address] Moody Martinez M.D. [id number] MCH (RBC) [Entitic mass] 31.0 pg Normal 26.0-34.0 [facility] Comment on above: Order Comment: Injur y/Trauma or Illness?:Illness/Other How long have you had these symptoms (acute/chronic)?:Acute Reason for exam?:sob History of cancer?:. Surgeries, chemotherapy, or radiation?:cardiac catheterization Type of Exam?:Initial Additional signs and symptoms?:n Performed By: #### 4 [id number] #### LAB [address] [address] Moody Martinez M.D. [id number] MCV (RBC) [Entitic vol] 94.3 fL Normal 80.0-100.0 [facility] Comment on above: Order Comment: Injur y/Trauma or Illness?:Illness/Other How long have you had these symptoms (acute/chronic)?:Acute Reason for exam?:sob History of cancer?:. Surgeries, chemotherapy, or radiation?:cardiac catheterization Type of Exam?:Initial Additional signs and symptoms?:n Performed By: #### 4 5218 #### LAB [address] [address] Moody Martinez M.D. [id number] MEAN CORPUSCULAR HEMOGLOBIN CONC 32.9 g/dL Normal 31.0-37.0 [facility] Comment on above: Order Comment: Injur y/Trauma or Illness?:Illness/Other How long have you had these symptoms (acute/chronic)?:Acute Reason for exam?:sob History of cancer?:. Surgeries, chemotherapy, or radiation?:cardiac catheterization Type of Exam?:Initial Additional signs and symptoms?:n Performed By: #### 4 5218 #### LAB [address] [address] Moody Martinez M.D. [id number] Platelet mean volume (Bld) [Entitic vol] 11.6 fL Normal 9.4-12.4 [facility] Comment on above: Order Comment: Injur y/Trauma or Illness?:Illness/Other How long have you had these symptoms (acute/chronic)?:Acute Reason for exam?:sob History of cancer?:. Surgeries, chemotherapy, or radiation?:cardiac catheterization Type of Exam?:Initial Additional signs and symptoms?:n Performed By: #### 4 [id number] #### LAB [address] [address] Moody Martinez M.D. [id number] Platelets (Bld) [#/Vol] 176 10*3/uL Normal 150-400 [facility] Comment on above: Order Comment: Injur y/Trauma or Illness?:Illness/Other How long have you had these symptoms (acute/chronic)?:Acute Reason for exam?:sob History of cancer?:. Surgeries, chemotherapy, or radiation?:cardiac catheterization Type of Exam?:Initial Additional signs and symptoms?:n Performed By: #### 4 5218 #### LAB [address] [address] Moody Martinez M.D. [id number] RBC (Bld) [#/Vol] 3.32 10*6/uL Low 4.50-5.90 [facility] Comment on above: Order Comment: Injur y/Trauma or Illness?:Illness/Other How long have you had these symptoms (acute/chronic)?:Acute Reason for exam?:sob History of cancer?:. Surgeries, chemotherapy, or radiation?:cardiac catheterization Type of Exam?:Initial Additional signs and symptoms?:n Performed By: #### 4 5218 #### LAB [address] [address] Moody Martinez M.D. [id number] WBC (Bld) [#/Vol] 14.08 10*3/uL High 4.50-11.00 [facility] Comment on above: Order Comment: Injur y/Trauma or Illness?:Illness/Other How long have you had these symptoms (acute/chronic)?:Acute Reason for exam?:sob History of cancer?:. Surgeries, chemotherapy, or radiation?:cardiac catheterization Type of Exam?:Initial Additional signs and symptoms?:n Performed By: #### 4 5218 #### LAB [address] [address] Moody Martinez M.D. [id number] AUTO NRBC 0.0 % Normal [facility] Comment on above: Performed By: #### 4 5218 #### LAB [address] [address] Moody Martinez M.D. [id number] AUTO NRBC ABS COUNT 0.00 K/mcL Normal 0.00-0.00 [facility] Comment on above: Performed By: #### 4 5218 #### LAB [address] [address] Moody Martinez M.D. [id number] Erythrocyte distribution width (RBC) [Ratio] 13.4 % Normal 11.6-14.8 [facility] Comment on above: Performed By: #### 4 5218 #### LAB [address] [address] Moody Martinez M.D. [id number] Hematocrit (Bld) [Volume fraction] 34.4 % Low 41.0-53.0 [facility] Comment on above: Performed By: #### 4 5218 #### LAB [address] [address] Moody Martinez M.D. [id number] Hemoglobin (Bld) [Mass/Vol] 11.2 g/dL Low 13.5-17.5 [facility] Comment on above: Performed By: #### 4 5218 #### LAB [address] [address] Moody aMrtinez M.D. [id number] MCH (RBC) [Entitic mass] 31.1 pg Normal 26.0-34.0 [facility] Comment on above: Performed By: #### 4 5218 #### LAB [address] [address] Moody Martinez M.D. [id number] MCV (RBC) [Entitic vol] 95.6 fL Normal 80.0-100.0 [facility] Comment on above: Performed By: #### 4 5218 #### LAB [address] [address] Moody Martinez M.D. [id number] MEAN CORPUSCULAR HEMOGLOBIN CONC 32.6 g/dL Normal 31.0-37.0 [facility] Comment on above: Performed By: #### 4 5218 ####[facility] [address] [address] Moody Martinez M.D. [id number] Platelet mean volume (Bld) [Entitic vol] 11.4 fL Normal 9.4-12.4 [facility] Comment on above: Performed By: #### 4 5218 #### LAB [address] [address] Moody Martinez M.D. [id number] Platelets (Bld) [#/Vol] 189 10*3/uL Normal 150-400 [facility] Comment on above: Performed By: #### 4 5218 #### LAB [address] [address] Moody Martinez M.D. [id number] RBC (Bld) [#/Vol] 3.60 10*6/uL Low 4.50-5.90 [facility] Comment on above: Performed By: #### 4 5218 #### LAB [address] [address] Moody Martinez M.D. [id number] WBC (Bld) [#/Vol] 11.96 10*3/uL High 4.50-11.00 [facility] Comment on above: Performed By: #### 4 5218 #### LAB [address] [address] Modoy Martinez M.D. [id number] CONSULTon 03-02-2025 CONSULT General Cardiology Inpatient Consult Heart & Vascular [facility] 03/02/2025 Diogenes Garay MD [facility] Patient: Enoc Fernandes Date of : 1945 (79 y.o.) Referring Provider: Refer to consult order in electronic medical record PCP: Ryley Jeter MD Assessment/Plan: Enoc Fernandes is a 79 y.o. male with history of heart failure with reduced ejection fraction with recovery of LVEF, coronary artery disease not amenable to PCI or open heart surgery, insulin-dependent diabetes, history of tobacco use, peripheral vascular disease, CKD, hypertension, and hyperlipidemia who presented to the hospital on 02/28/2025 with shortness of breath. Patient was found to be in DKA. He also was found to have pulmonary edema and heart failure with hypertensive urgency. There is also concerns for sepsis. Cardiology has not been consulted for an elevated troponin/NSTEMI. Acute on chronic heart failure with reduced ejection fraction with recovery of LVEF-most recent echocardiogram in October 2024 revealed normalization of LVEF. Heart failure was likely exacerbated by volume resuscitation for DKA and infection. Agree with IV diuretic therapy. Strict I's and O's. Adjust Lasix as needed. Continue metoprolol succinate 25 daily. No PASCALE ARB or Arni given elevated creatinine Elevated troponin/NSTEMI-likel y type II NSTEMI from demand ischemia. Patient has known coronary artery disease. Patient was not amenable to PCI and was felt to be high risk for open heart surgery. Elevated troponin/demand is likely related to heart failure exacerbation at the current time. Patient denies having any episodes of chest pain. Agree with IV heparin therapy for 48 hours from peak troponin. Trend troponin to peak. Continue aspirin 81 mg daily, Zetia 10 mg daily, metoprolol as above. Continue Imdur 30 mg daily Admitted with these risk variables:AMI, NSTEMI, CHF, Chronic Kidney Disease, and Fluid Overload. Please see assessment and plan for further details. Diogenes Garay MD [facility] Non-Invasive Cardiology [facility] Heart and Vascular Subjective Reason for Consultation: NSTEMI History of Present Illness: Enoc Fernandes is a 79 y.o. male with history of heart failure with reduced ejection fraction with recovery of LVEF, coronary artery disease not amenable to PCI or open heart surgery, insulin-dependent diabetes, history of tobacco use, peripheral vascular disease, CKD, hypertension, and hyperlipidemia who presented to the hospital on 02/28/2025 with shortness of breath. Patient was found to be in DKA. He also was found to have pulmonary edema and heart failure with hypertensive urgency. There is also concerns for sepsis. Cardiology has not been consulted for an elevated troponin/NSTEMI. Patient follows with Dr. Woo grigsby in the clinic. Patient present to the hospital shortness of breath. He reports that his shortness of breath has actually gotten worse here in the hospital. He was given IV diuretic therapy today which seem to improve his symptoms. Denies any episodes of chest pain. Currently he does not have any lower extremity swelling. He denies having palpitations, lightheadedness or dizziness. Denies any episodes of syncope. Denies PND orthopnea prior to presenting to the hospital Imaging: I independently reviewed the EKG and agree with the interpretation(s) with the following comments. ECG 03/02/25 - NSR, nonspecific ST and T wave change, prolonged QT 10/27/24 TTE Summary 1. Normal LV chamber size. Normal wall thickness. Systolic function is normal with no regional wall motion abnormalities. Estimated ejection fraction of 60-65%. 2. Right ventricular size and systolic function are normal. 3. There is mild aortic valve regurgitation. 4. There is pulmonary hypertension, estimated right ventricle systolic pressure is 49 mmHg. 10/27/24 [facility] Left Main The vessel is moderate in size. Ost LM lesion is 40% stenosed. PRACHI flow is 3. The lesion is type C. The lesion is calcified. Left Anterior Descending The vessel is moderate in size. Mid LAD lesion is 85% stenosed. PRACHI flow is 3. The lesion is type C. The lesion is calcified. First Diagonal Branch The vessel is small. There is moderate diffuse disease throughout the vessel. Second Diagonal Branch The vessel is moderate in size. 2nd Diag lesion is 80% stenosed. PRACHI flow is 3. The lesion is type C. Left Circumflex The vessel is small. There is moderate diffuse disease throughout the vessel. Right Coronary Artery The vessel is moderate in size. Ost RCA to Prox RCA lesion is 35% stenosed. PRACHI flow is 3. The lesion is type C. The lesion is calcified. Mid RCA lesion is 80% stenosed. PRACHI flow is 3. The lesion is type C. The lesion is calcified. Review of Systems: Constitution: Negative. HENT: Negative. Cardiovascular: As above. Respiratory: As above. Endocrine: Negative. Skin: Negative. (more content not included)... Normal [facility] ECHOCARDIOGRAM COMPLETEon ECHOCARDIOGRAM COMPLETE Patient Info Name: ENOC FERNANDES Age: 79 years : 1945 Gender: Male Ht: 170 cm Wt: 64 kg BSA: 1.74 m2 HR: 81 bpm BP: 112 / 57 mmHg Heart Rhythm: Sinus Rhythm Technical Quality: Good Exam Date: 03/02/2025 2:27 PM Patient Status: Inpatient Cash Management Associate: Mikel Olvera RCDS Exam Type: ECHOCARDIOGRAM COMPLETE Study Info Indications - Chest pain R07.9 - Chest pain, unspecified Referring Physician: TANISHA Alves; [id number] BMI: 22.08 kg/m2 Summary 1. Left ventricular systolic function is normal with an ejection fraction by Biplane Method of Discs of 57 %. 2. The left ventricular diastolic function is indeterminate with normal filling pressures. 3. Right ventricular size and systolic function are normal. 4. No hemodynamically significant valvular disease identified. 5. There is no pulmonary hypertension, estimated right ventricle systolic pressure is 35 mmHg. History/Risk Factors Hypertension: Yes Dyslipidemia: Yes Myocardial Infarction ([place]): No Congestive Heart Failure (CHF): Hx CHF Diabetes Mellitus: Type I COPD: Yes Tobacco Use: Current - Every Day Family History: Coronary Artery Disease Prior Interventions Pacemaker: No PCI: No CABG: No ICD: No Procedure(s): Complete two-dimensional, color flow and Doppler transthoracic echocardiogram is performed. Left Ventricle Left ventricular chamber dimension is normal. Left ventricular systolic function is normal with an ejection fraction by Biplane Method of Discs of 57 %. Normal left ventricular mass. Left ventricular segmental wall motion is normal. The left ventricular diastolic function is indeterminate with normal filling pressures. Right Ventricle Right ventricular size and systolic function are normal. Left Atria Left atrial chamber is normal with a left atrial volume index of 22 ml/m2 by BP MOD. Right Atria Right atrial chamber dimension is normal. Aortic Valve The aortic valve is trileaflet. There is no aortic valve sclerosis. There is no aortic valve stenosis. There is no aortic valve regurgitation. Pulmonic Valve The pulmonic valve is normal. There is no pulmonic valve stenosis. There is trace pulmonic regurgitation. Mitral Valve Dense posterior mitral annular calcification. The mitral valve has normal leaflets. There is no mitral valve stenosis. There is mild mitral valve regurgitation. Tricuspid Valve The tricuspid valve leaflets are normal. There is no significant tricuspid valve stenosis. There is trace tricuspid valve regurgitation. There is no pulmonary hypertension, estimated right ventricle systolic pressure is 35 mmHg. Pericardium/Pleural There is no pericardial effusion. Inferior Vena Cava Normal inferior vena cava with >50% collapse upon inspiration consistent with normal right atrial pressure. Aorta The aortic measurements are indexed to age and body surface area. The aortic root is normal measuring 3.3 cm with an index of 1.9 cm/m2. Wall Motion Scoring Wall Motion Scoring Index: 1.00 Left Ventricular Outflow Tract ------- Name Value Normal ------- LVOT 2D ------- LVOT Diameter 1.7 cm LVOT Doppler ------- LVOT Peak Velocity 1.0 m/s LVOT Peak Gradient 4 mmHg LVOT Mean Gradient 2 mmHg LVOT VTI 22 cm LVOT VTI/AV VTI Ratio 0.8 LVOT Stroke Volume 49 ml LVOT Stroke Index 28.43 ml/m2 Pulmonic Valve ------- Name Value Normal ------- RVOT Doppler ------- RVOT Peak Velocity 101 cm/s RVOT Peak Gradient 2 mmHg RVOT Mean Gradient 1 mmHg RVOT VTI 23 cm Mitral Valve ------- Name Value Normal ------- MV Doppler ------- MV Peak Velocity 1.17 m/s MV Peak Gradient 8 mmHg MV Mean Gradient 3 mmHg MV VTI 35 cm MV Decel Mcintosh 390 cm/s2 MV PHT 75 ms MV Area (PHT) 3.0 cm2 4.0-5.0 MV Area (Cont Eq VTI) 1.4 cm2 MV Area Index (Cont Eq VTI) 0.81 cm2/m2 MV DVI 1.61 MV Regurgitation Doppler ------- MR Peak Velocity 5 m/s MR Peak Gradient 91 mmHg MR VTI 139 cm MV Diastolic Function ------- MV E Peak Velocity 0.72 m/s MV A Peak Velocity 1.35 m/s MV E/A 0.5 MV Decel Time 257 ms MV Annular TDI (more content not included)... Normal [facility] MAGNESIUM LEVELon 03-02-2025 Magnesium [Mass/Vol] 2.2 mg/dL Normal 1.6-2.4 [facility] Comment on above: Performed By: #### 4 [id number] ####[facility] [address] [place] [address] Moody Martinez M.D. [id number] NT PRO BNPon 03-02-2025 Natriuretic peptide B (Bld) [Mass/Vol] 42659 pg/mL High 0-300 [facility] Comment on above: Order Comment: [place] Study Cut-offsRule In:< /= 50 Years >450 pg/mL51 Years - 75 Years >900 pg/mL76 Years - 99 Years >1800 pg/mLRule Out:All patients <300 pg/mL Performed By: #### 4 [id number] ####[facility] [address] [address] Moody Martinez M.D. [id number] POC GLUCOSE [facility] 025 Glucose [Mass/Vol] 287 mg/dL [address] Comment on above: Performed By: #### 4 6932 #### LAB [address] [address] Moody Martinez M.D. [id number] Glucose [Mass/Vol] 137 mg/dL [address] Comment on above: Performed By: #### 4 6932 ####[facility] [address] [address] Moody Martinez M.D. [id number] Glucose [Mass/Vol] 252 mg/dL [address] Comment on above: Performed By: #### 4 6932 #### LAB [address] [address] Moody Martinez M.D. [id number] Glucose [Mass/Vol] 332 mg/dL [address] Comment on above: Performed By: #### 4 6932 ####[facility] [address] [address] Moody Martinez M.D. [id number] Glucose [Mass/Vol] 286 mg/dL [address] Comment on above: Performed By: #### 4 [id number] #### LAB [address] [place] [address] Moody Martinez M.D. [id number] Glucose [Mass/Vol] 168 mg/dL [address] Comment on above: Performed By: #### L [id number] #### LAB [address] [place] [address] Moody Martinez M.D. [id number] Glucose [Mass/Vol] 186 mg/dL [address] Comment on above: Performed By: #### 4 6932 ####[facility] [address] [address] Moody Martinez M.D. [id number] POTASSIUM LEVELon 03-02-2025 Potassium [Moles/Vol] 3.9 mmol/L Normal 3.5-5.1 [facility] Comment on above: Performed By: #### 4 6351 #### LAB [address] [address] Moody Martinez M.D. [id number] TROPONIN X 2 (NOW AND REPEAT IN 2 HOURS)on 03-02-2025 TROPONIN T DELTA CHANGE INTERPRETATION Delta troponin requires at least 2 hours between collections. [facility] Comment on above: Performed By: #### 4 6608 #### LAB [address] [address] Moody Martinez M.D. [id number] TROPONIN T NG/L 1447 ng/L Off scale high <=22 [facility] Comment on above: Performed By: #### 4 6608 #### LAB [address] [address] Moody Martinez M.D. [id number] BASELINE TROPONIN T NG/L 1309 ng/L Off scale high <=22 [facility] Comment on above: Performed By: #### 4 6608 #### LAB [address] [address] Moody Martinez M.D. [id number] TROPONIN T INTERPRETATION Possible acute cardiac injury. [facility] Comment on above: Performed By: #### 4 6608 #### LAB [address] [address] Moody Martinez M.D. [id number] XR CHEST PA/APon 03-02-2025 XR CHEST PA/AP EXAMINATION: XR CHEST PA/AP 03/02/2025 9:19 AM HISTORY: ORDERING SYSTEM PROVIDED HISTORY: SOB, TECHNOLOGIST PROVIDED HISTORY: Illness/Other Reason for exam: SOB Cancer History: . Surgery, RadiationHistory: cardiac catheterization Encounter Type: Initial Additional signs and symptoms: . ORDERING SYSTEM PROVIDED DIAGNOSIS CODES: E87.5 Hyperkalemia I16.1 Hypertensive emergency N17.9 Acute kidney injury A41.9 Sepsis, due to unspecified organism, unspecified whether acute organ dysfunction present (HCC) J18.9 Pneumonia E11.10 DKA (diabetic ketoacidosis) ([facility]) COMPARISON: 02/28/2025. TECHNIQUE: Single portable semierect view. FINDINGS: Cardiac silhouette and mediastinal contours are stable. No pneumothorax or large pleural effusion. There is development of eojbodty-zy-iuuwgm bilateral mixed interstitial and alveolar opacities in both lungs consistent with pulmonary edema; although, underlying pneumonia/aspiration is not excluded. IMPRESSION: Development of fbfaxznk-cx-jdtflz mixed interstitial and alveolar opacities in both lungs consistent with pulmonary edema. Underlying pneumonia/aspiration not excluded. No pneumothorax or large pleural effusion. [employer] Workstation ID: [id number] Dictated by: KAHLIL VARGHESE on WedMarch 02, 2025 2:36:56 PM EDT Transcribed by: AFUA RALPH on WedMarch 02, 2025 3:15:52 PM EDT Finalized by: KAHLIL VARGHESE on WedMarch 02, 2025 3:23:59 PM EDT Normal [facility] Comment on above: Order Comment: Injur y/Trauma or Illness?:Illness/OtherHow long have you had these symptoms (acute/chronic)?:AcuteReason for exam?:SOBHistory of cancer?:.Surgeries, chemotherapy, or radiation?:cardiac catheterizationType of Exam?:InitialAdditional signs and symptoms?:. BASIC METABOLIC PANELon 05-0 Anion gap [Moles/Vol] 15 mmol/L Normal 10-20 [facility] Comment on above: Order Comment: [facility] has implemented the eGFR calculation approach that does not have a coefficient for race that conforms to the NKF-ASN Task Force Recommendations. Performed By: #### 4 6143 #### LAB [address] [place], [place] [address] Moody Martinez M.D. [id number] Calcium [Mass/Vol] 8.7 mg/dL Normal 8.4-10.2 [facility] Comment on above: Order Comment: [facility] has implemented the eGFR calculation approach that does not have a coefficient for race that conforms to the NKF-ASN Task Force Recommendations. Performed By: #### 4 6114 #### LAB [address] [place] [address] Moody Martinez M.D. [id number] Chloride [Moles/Vol] 104 mmol/L Normal 98-108 [facility] Comment on above: Order Comment: [facility] has implemented the eGFR calculation approach that does not have a coefficient for race that conforms to the NKF-ASN Task Force Recommendations. Performed By: #### 4 6124 #### LAB [address] [place] [address] Moody Martinez M.D. [id number] Creatinine [Mass/Vol] 2.49 mg/dL High 0.80-1.30 [facility] Comment on above: Order Comment: [facility] has implemented the eGFR calculation approach that does not have a coefficient for race that conforms to the NKF-ASN Task Force Recommendations. Performed By: #### 4 6124 ####[facility] [address] [address] Moody Martinez M.D. [id number] EGFR 25 mL/min/1.73 m2 Low >=60 [facility] Comment on above: Order Comment: [facility] has implemented the eGFR calculation approach that does not have a coefficient for race that conforms to the NKF-ASN Task Force Recommendations. Result Comment: Albin mated GFR was calculated using the 2020 CKD-EPI creatinine equation. Performed By: #### 4 6124 ####[facility] [address] [place] [address] Moody Martinez M.D. [id number] Glucose [Mass/Vol] 86 mg/dL Normal 65-99 [facility] Comment on above: Order Comment: [facility] has implemented the eGFR calculation approach that does not have a coefficient for race that conforms to the NKF-ASN Task Force Recommendations. Performed By: #### 4 6124 ####[facility] [address] [address] Moody Martinez M.D. [id number] HCO3 (Bld) [Moles/Vol] 26 mmol/L Normal 21-[address] [facility] Comment on above: Order Comment: [facility] has implemented the eGFR calculation approach that does not have a coefficient for race that conforms to the NKF-ASN Task Force Recommendations. Performed By: #### 4 6124 #### LAB [address] [place] [address] Moody Martinez M.D. [id number] Potassium [Moles/Vol] 4.2 mmol/L Normal 3.5-5.1 [facility] Comment on above: Order Comment: [facility] has implemented the eGFR calculation approach that does not have a coefficient for race that conforms to the NKF-ASN Task Force Recommendations. Performed By: #### 4 6124 #### LAB [address] [place] [address] Moody Martinez M.D. [id number] Sodium [Moles/Vol] 141 mmol/L Normal 135-145 [facility] Comment on above: Order Comment: [facility] has implemented the eGFR calculation approach that does not have a coefficient for race that conforms to the NKF-ASN Task Force Recommendations. Performed By: #### 4 6124 #### LAB [address] [place] [address] Moody Martinez M.D. [id number] Urea nitrogen [Mass/Vol] 47 mg/dL High 8-25 [facility] Comment on above: Order Comment: [facility] has implemented the eGFR calculation approach that does not have a coefficient for race that conforms to the NKF-ASN Task Force Recommendations. Performed By: #### 4 6124 #### LAB [address] [place] [address] Moody Martinez M.D. [id number] Urea nitrogen/Creatinine [Mass ratio] 18.9 mg/mg Normal 10.0-20.0 [facility] Comment on above: Order Comment: [facility] has implemented the eGFR calculation approach that does not have a coefficient for race that conforms to the NKF-ASN Task Force Recommendations. Performed By: #### 4 6124 #### LAB [address] [place] [address] Moody Martinez M.D. [id number] CBCon 03-01-2025 AUTO NRBC 0.0 % Normal [facility] Comment on above: Performed By: #### 4 [id number] #### LAB [address] [place] [address] Moody Martinez M.D. [id number] AUTO NRBC ABS COUNT 0.00 K/mcL Normal 0.00-0.00 [facility] Comment on above: Performed By: #### 4 5218 #### LAB [address] [place] [address] Moody Martinez M.D. [id number] Erythrocyte distribution width (RBC) [Ratio] 13.7 % Normal 11.6-14.8 [facility] Comment on above: Performed By: #### 4 5218 #### LAB [address] [place] [address] Moody Martinez M.D. [id number] Hematocrit (Bld) [Volume fraction] 29.8 % Low 41.0-53.0 [facility] Comment on above: Performed By: #### 4 [id number] #### LAB [address] [place] [address] Moody Martinez M.D. [id number] Hemoglobin (Bld) [Mass/Vol] 9.9 g/dL Low 13.5-17.5 [facility] Comment on above: Performed By: #### 4 [id number] #### LAB [address] [place] [address] Moody Martinez M.D. [id number] MCH (RBC) [Entitic mass] 31.0 pg Normal 26.0-34.0 [facility] Comment on above: Performed By: #### 4 [id number] #### LAB [address] [place] [address] Moody Martinez M.D. [id number] MCV (RBC) [Entitic vol] 93.4 fL Normal 80.0-100.0 [facility] Comment on above: Performed By: #### 4 [id number] #### LAB [address] [address] Moody Martinez M.D. [id number] MEAN CORPUSCULAR HEMOGLOBIN CONC 33.2 g/dL Normal 31.0-37.0 [facility] Comment on above: Performed By: #### 4 [id number] #### LAB [address] [address] Moody Martinez M.D. [id number] Platelet mean volume (Bld) [Entitic vol] 10.9 fL Normal 9.4-12.4 [facility] Comment on above: Performed By: #### 4 [id number] #### LAB [address] [address] Moody Martinez M.D. [id number] Platelets (Bld) [#/Vol] 186 10*3/uL Normal 150-400 [facility] Comment on above: Performed By: #### 4 [id number] #### LAB [address] [address] Moody Martinez M.D. [id number] RBC (Bld) [#/Vol] 3.19 10*6/uL Low 4.50-5.90 [facility] Comment on above: Performed By: #### 4 [id number] #### LAB [address] [place] [address] Moody Martinez M.D. [id number] WBC (Bld) [#/Vol] 15.37 10*3/uL High 4.50-11.00 [facility] Comment on above: Performed By: #### 4 [id number] #### LAB [address] [address] Moody Martinez M.D. [id number] MAGNESIUM LEVELon 03-01-2025 Magnesium [Mass/Vol] 2.1 mg/dL Normal 1.6-2.4 [facility] Comment on above: Performed By: #### 4 6109 #### LAB [address] [place] [address] Moody Martinez M.D. [id number] PHOSPHORUSon 03-01-2025 Phosphate [Mass/Vol] 4.3 mg/dL High 2.3-3.7 [facility] Comment on above: Performed By: #### 4 6299 ####[facility] [address] [address] Moody Martinez M.D. [id number] POC GLUCOSE [facility] 025 Glucose [Mass/Vol] 249 mg/dL High [address] [place] [address] Comment on above: Performed By: #### 4 6932 ####[facility] [address] [address] Moody Martinez M.D. [id number] Glucose [Mass/Vol] 79 mg/dL Normal [address] [place] [address] Comment on above: Performed By: #### 4 6932 #### LAB [address] [place] [address] Moody Martinez M.D. [id number] Glucose [Mass/Vol] 237 mg/dL High [address] [place] [address] Comment on above: Performed By: #### 4 6932 #### LAB [address] [address] Moody Martinez M.D. [id number] Glucose [Mass/Vol] 85 mg/dL Normal [address] [place] [address] Comment on above: Performed By: #### 4 6932 #### LAB [address] [address] Moody Martinez M.D. [id number] Glucose [Mass/Vol] 167 mg/dL High [address] [place] [address] Comment on above: Performed By: #### 4 6932 #### LAB [address] [address] Moody Martinez M.D. [id number] BASIC METABOLIC PANELon 04-3 Anion gap [Moles/Vol] 16 mmol/L Normal - [facility] Comment on above: Order Comment: [facility] has implemented the eGFR calculation approach that does not have a coefficient for race that conforms to the NKF-ASN Task Force Recommendations. Performed By: #### 4 4014 #### LAB [address] [address] Moody Martinez M.D. [id number] Calcium [Mass/Vol] 9.5 mg/dL Normal 8.4-10.2 [facility] Comment on above: Order Comment: [facility] has implemented the eGFR calculation approach that does not have a coefficient for race that conforms to the NKF-ASN Task Force Recommendations. Performed By: #### 4 4014 #### [facility] [address] [address] Moody Martinez M.D. [id number] Chloride [Moles/Vol] 103 mmol/L Normal 98-108 [facility] Comment on above: Order Comment: [facility] has implemented the eGFR calculation approach that does not have a coefficient for race that conforms to the NKF-ASN Task Force Recommendations. Performed By: #### 4 4014 #### [facility] [address] [address] Moody Martinez M.D. [id number] Creatinine [Mass/Vol] 2.61 mg/dL High 0.80-1.30 [facility] Comment on above: Order Comment: [facility] has implemented the eGFR calculation approach that does not have a coefficient for race that conforms to the NKF-ASN Task Force Recommendations. Performed By: #### 4 4014 #### LAB [address] [address] Moody Martinez M.D. [id number] EGFR 24 mL/min/1.73 m2 Low >=60 [facility] Comment on above: Order Comment: [facility] has implemented the eGFR calculation approach that does not have a coefficient for race that conforms to the NKF-ASN Task Force Recommendations. Result Comment: Albin mated GFR was calculated using the 2020 CKD-EPI creatinine equation. Performed By: #### 4 4014 #### [facility] [address] [address] Moody Martinez M.D. [id number] Glucose [Mass/Vol] 138 mg/dL High 65-99 [facility] Comment on above: Order Comment: [facility] has implemented the eGFR calculation approach that does not have a coefficient for race that conforms to the NKF-ASN Task Force Recommendations. Performed By: #### 4 4014 #### LAB [address] [address] Moody Martinez M.D. [id number] HCO3 (Bld) [Moles/Vol] 23 mmol/L Normal 21-[address] [facility] Comment on above: Order Comment: [facility] has implemented the eGFR calculation approach that does not have a coefficient for race that conforms to the NKF-ASN Task Force Recommendations. Performed By: #### 4 4014 #### LAB [address] [place] [address] Moody Martinez M.D. [id number] Potassium [Moles/Vol] 4.0 mmol/L Normal 3.5-5.1 [facility] Comment on above: Order Comment: [facility] has implemented the eGFR calculation approach that does not have a coefficient for race that conforms to the NKF-ASN Task Force Recommendations. Performed By: #### 4 4014 #### LAB [address] [address] Moody Martinez M.D. [id number] Sodium [Moles/Vol] 138 mmol/L Normal 135-145 [facility] Comment on above: Order Comment: [facility] has implemented the eGFR calculation approach that does not have a coefficient for race that conforms to the NKF-ASN Task Force Recommendations. Performed By: #### 4 4014 #### LAB [address] [address] Moody Martinez M.D. [id number] Urea nitrogen [Mass/Vol] 50 mg/dL High 8-25 [facility] Comment on above: Order Comment: [facility] has implemented the eGFR calculation approach that does not have a coefficient for race that conforms to the NKF-ASN Task Force Recommendations. Performed By: #### 4 4014 #### LAB [address] [place] [address] Moody Martinez M.D. [id number] Urea nitrogen/Creatinine [Mass ratio] 19.2 mg/mg Normal 10.0-20.0 [facility] Comment on above: Order Comment: [facility] has implemented the eGFR calculation approach that does not have a coefficient for race that conforms to the NKF-ASN Task Force Recommendations. Performed By: #### 4 4014 #### LAB [address] [place], [place] [address] Moody Martinez M.D. [id number] Anion gap [Moles/Vol] 22 mmol/L High 10-20 [facility] Comment on above: Order Comment: Injur y/Trauma or Illness?:Illness/Other How long have you had these symptoms (acute/chronic)?:Acute Reason for exam?:cross clamp of aorta for CPB Type of Exam?:Initial Additional signs and symptoms?:cp Performed By: #### 4 6124 #### LAB [address] [place] [address] Moody Martinez M.D. [id number] Calcium [Mass/Vol] 9.6 mg/dL Normal 8.4-10.2 [facility] Comment on above: Order Comment: Injur y/Trauma or Illness?:Illness/Other How long have you had these symptoms (acute/chronic)?:Acute Reason for exam?:cross clamp of aorta for CPB Type of Exam?:Initial Additional signs and symptoms?:cp Performed By: #### 4 6124 #### LAB [address] [place] [address] Moody Martinez M.D. [id number] Chloride [Moles/Vol] 100 mmol/L Normal 98-108 [facility] Comment on above: Order Comment: Injur y/Trauma or Illness?:Illness/Other How long have you had these symptoms (acute/chronic)?:Acute Reason for exam?:cross clamp of aorta for CPB Type of Exam?:Initial Additional signs and symptoms?:cp Performed By: #### 4 6179 #### LAB [address] [place] [id number] Moody Martinez M.D. [id number] Creatinine [Mass/Vol] 2.69 mg/dL High 0.80-1.30 [facility] Comment on above: Order Comment: Injur y/Trauma or Illness?:Illness/Other How long have you had these symptoms (acute/chronic)?:Acute Reason for exam?:cross clamp of aorta for CPB Type of Exam?:Initial Additional signs and symptoms?:cp Performed By: #### 4 6124 #### LAB [address] [place] [address] Moody Martinez M.D. [id number] EGFR 23 mL/min/1.73 m2 Low >=60 [facility] Comment on above: Order Comment: Injur y/Trauma or Illness?:Illness/Other How long have you had these symptoms (acute/chronic)?:Acute Reason for exam?:cross clamp of aorta for CPB Type of Exam?:Initial Additional signs and symptoms?:cp Result Comment: Albin mated GFR was calculated using the 2020 CKD-EPI creatinine equation. Performed By: #### 4 6124 #### LAB [address] [place] [address] Moody Martinez M.D. [id number] Glucose [Mass/Vol] 426 mg/dL Off scale high 65-[address] 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 [id number] HCO3 (Bld) [Moles/Vol] 19 mmol/L Low 21-[address] 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 [id number] Potassium [Moles/Vol] 4.0 mmol/L Normal 3.5-5.1 [facility] Comment on above: Order Comment: Injur y/Trauma or Illness?:Illness/Other How long have you had these symptoms (acute/chronic)?:Acute Reason for exam?:cross clamp of aorta for CPB Type of Exam?:Initial Additional signs and symptoms?:cp Performed By: #### 4 6124 #### LAB [address] [place] [address] Moody Martinez M.D. [id number] Sodium [Moles/Vol] 137 mmol/L Normal 135-145 [facility] Comment on above: Order Comment: Injur y/Trauma or Illness?:Illness/Other How long have you had these symptoms (acute/chronic)?:Acute Reason for exam?:cross clamp of aorta for CPB Type of Exam?:Initial Additional signs and symptoms?:cp Performed By: #### 4 6124 #### LAB [address] [place] [address] Moody Martinez M.D. [id number] Urea nitrogen [Mass/Vol] 51 mg/dL High 8- [facility] Comment on above: Order Comment: Injur y/Trauma or Illness?:Illness/Other How long have you had these symptoms (acute/chronic)?:Acute Reason for exam?:cross clamp of aorta for CPB Type of Exam?:Initial Additional signs and symptoms?:cp Performed By: #### 4 6124 #### LAB [address] [place] [address] Moody Martinez M.D. [id number] Urea nitrogen/Creatinine [Mass ratio] 19.0 mg/mg Normal 10.0-20.0 [facility] Comment on above: Order Comment: Injur y/Trauma or Illness?:Illness/Other How long have you had these symptoms (acute/chronic)?:Acute Reason for exam?:cross clamp of aorta for CPB Type of Exam?:Initial Additional signs and symptoms?:cp Performed By: #### 4 6124 #### LAB [address] [place] [address] Moody Martinez M.D. [id number] Anion gap [Moles/Vol] 27 mmol/L High 10-20 [facility] Comment on above: Order Comment: [facility] has implemented the eGFR calculation approach that does not have a coefficient for race that conforms to the NKF-ASN Task Force Recommendations. Performed By: #### 4 6124 #### LAB [address] [place], [place] [address] Moody Martinez M.D. [id number] Calcium [Mass/Vol] 9.6 mg/dL Normal 8.4-10.2 [facility] Comment on above: Order Comment: [facility] has implemented the eGFR calculation approach that does not have a coefficient for race that conforms to the NKF-ASN Task Force Recommendations. Performed By: #### 4 6124 #### LAB [address] [place], [place] [address] Moody Martinez M.D. [id number] Chloride [Moles/Vol] 97 mmol/L Low 98-108 [facility] Comment on above: Order Comment: [facility] has implemented the eGFR calculation approach that does not have a coefficient for race that conforms to the NKF-ASN Task Force Recommendations. Performed By: #### 4 6124 #### LAB [address] [place], [place] [address] Moody Martinez M.D. [id number] Creatinine [Mass/Vol] 2.72 mg/dL High 0.80-1.30 [facility] Comment on above: Order Comment: [facility] has implemented the eGFR calculation approach that does not have a coefficient for race that conforms to the NKF-ASN Task Force Recommendations. Performed By: #### 4 6124 #### LAB [address] [place], [place] [address] Moody Martinez M.D. [id number] EGFR 23 mL/min/1.73 m2 Low >=60 [facility] Comment on above: Order Comment: [facility] has implemented the eGFR calculation approach that does not have a coefficient for race that conforms to the NKF-ASN Task Force Recommendations. Result Comment: Albin mated GFR was calculated using the 2020 CKD-EPI creatinine equation. Performed By: #### 4 6124 #### LAB [address] [place] [address] Moody Martinez M.D. [id number] Glucose [Mass/Vol] 529 mg/dL Off scale high 65-[address] [facility] Comment on above: Order Comment: [facility] has implemented the eGFR calculation approach that does not have a coefficient for race that conforms to the NKF-ASN Task Force Recommendations. Performed By: #### 4 6124 #### LAB [address] [place] [address] Moody Martinez M.D. [id number] HCO3 (Bld) [Moles/Vol] 17 mmol/L Low 21-[address] [facility] Comment on above: Order Comment: [facility] has implemented the eGFR calculation approach that does not have a coefficient for race that conforms to the NKF-ASN Task Force Recommendations. Performed By: #### 4 6124 #### LAB [address] [place] [address] Moody Martinez M.D. [id number] Potassium [Moles/Vol] 4.5 mmol/L Normal 3.5-5.1 [facility] Comment on above: Order Comment: [facility] has implemented the eGFR calculation approach that does not have a coefficient for race that conforms to the NKF-ASN Task Force Recommendations. Performed By: #### 4 6124 #### LAB [address] [place] [address] Moody Martinez M.D. [id number] Sodium [Moles/Vol] 136 mmol/L Normal 135-145 [facility] Comment on above: Order Comment: [facility] has implemented the eGFR calculation approach that does not have a coefficient for race that conforms to the NKF-ASN Task Force Recommendations. Performed By: #### 4 6124 ####[facility] LAB [address] [place] [address] Moody Martinez M.D. [id number] Urea nitrogen [Mass/Vol] 52 mg/dL High 8-25 [facility] Comment on above: Order Comment: [facility] has implemented the eGFR calculation approach that does not have a coefficient for race that conforms to the NKF-ASN Task Force Recommendations. Performed By: #### 4 6124 #### LAB [address] [place] [address] Moody Martinez M.D. [id number] Urea nitrogen/Creatinine [Mass ratio] 19.1 mg/mg Normal 10.0-20.0 [facility] Comment on above: Order Comment: [facility] has implemented the eGFR calculation approach that does not have a coefficient for race that conforms to the NKF-ASN Task Force Recommendations. Performed By: #### 4 6124 #### LAB [address] [place] [address] Moody Martinez M.D. [id number] Anion gap [Moles/Vol] 28 mmol/L High 10-20 [facility] Comment on above: Order Comment: Injur y/Trauma or Illness?:Illness/Other How long have you had these symptoms (acute/chronic)?:Acute Reason for exam?:sob History of cancer?:. Surgeries, chemotherapy, or radiation?:cardiac catheterization Type of Exam?:Initial Additional signs and symptoms?:n Performed By: #### 4 6124 #### LAB [address] [place] [address] Moody Martinez M.D. [id number] Calcium [Mass/Vol] 9.6 mg/dL Normal 8.4-10.2 [facility] Comment on above: Order Comment: Injur y/Trauma or Illness?:Illness/Other How long have you had these symptoms (acute/chronic)?:Acute Reason for exam?:sob History of cancer?:. Surgeries, chemotherapy, or radiation?:cardiac catheterization Type of Exam?:Initial Additional signs and symptoms?:n Performed By: #### 4 6124 #### LAB [address] [place] [address] Moody Martinez M.D. [id number] Chloride [Moles/Vol] 97 mmol/L Low 98-108 [facility] Comment on above: Order Comment: Injur y/Trauma or Illness?:Illness/Other How long have you had these symptoms (acute/chronic)?:Acute Reason for exam?:sob History of cancer?:. Surgeries, chemotherapy, or radiation?:cardiac catheterization Type of Exam?:Initial Additional signs and symptoms?:n Performed By: #### 4 6124 #### LAB [address] [place] [address] Moody Martinez M.D. [id number] Creatinine [Mass/Vol] 2.66 mg/dL High 0.80-1.30 [facility] Comment on above: Order Comment: Injur y/Trauma or Illness?:Illness/Other How long have you had these symptoms (acute/chronic)?:Acute Reason for exam?:sob History of cancer?:. Surgeries, chemotherapy, or radiation?:cardiac catheterization Type of Exam?:Initial Additional signs and symptoms?:n Performed By: #### 4 6100 #### LAB [address] [place] [address] Moody Martinez M.D. [id number] EGFR 23 mL/min/1.73 m2 Low >=60 [facility] Comment on above: Order Comment: Injur y/Trauma or Illness?:Illness/Other How long have you had these symptoms (acute/chronic)?:Acute Reason for exam?:sob History of cancer?:. Surgeries, chemotherapy, or radiation?:cardiac catheterization Type of Exam?:Initial Additional signs and symptoms?:n Result Comment: Albin mated GFR was calculated using the 2020 CKD-EPI creatinine equation. Performed By: #### 4 6129 #### LAB [address] [place] [address] Moody Martinez M.D. [id number] Glucose [Mass/Vol] 514 mg/dL Off scale high 65-[address] [facility] Comment on above: Order Comment: Injur y/Trauma or Illness?:Illness/Other How long have you had these symptoms (acute/chronic)?:Acute Reason for exam?:sob History of cancer?:. Surgeries, chemotherapy, or radiation?:cardiac catheterization Type of Exam?:Initial Additional signs and symptoms?:n Performed By: #### 4 6173 #### LAB [address] [place] [address] Moody Martinez M.D. [id number] HCO3 (Bld) [Moles/Vol] 18 mmol/L Low 21-[address] [facility] Comment on above: Order Comment: Injur y/Trauma or Illness?:Illness/Other How long have you had these symptoms (acute/chronic)?:Acute Reason for exam?:sob History of cancer?:. Surgeries, chemotherapy, or radiation?:cardiac catheterization Type of Exam?:Initial Additional signs and symptoms?:n Performed By: #### 4 6124 #### LAB [address] [place] [address] Moody Martinez M.D. [id number] Potassium [Moles/Vol] 5.9 mmol/L High 3.5-5.1 [facility] Comment on above: Order Comment: Injur y/Trauma or Illness?:Illness/Other How long have you had these symptoms (acute/chronic)?:Acute Reason for exam?:sob History of cancer?:. Surgeries, chemotherapy, or radiation?:cardiac catheterization Type of Exam?:Initial Additional signs and symptoms?:n Result Comment: Slig htly Hemolyzed Performed By: #### 4 6166 #### LAB [address] [place] [address] Moody Martinez M.D. [id number] Sodium [Moles/Vol] 137 mmol/L Normal 135-145 [facility] Comment on above: Order Comment: Injur y/Trauma or Illness?:Illness/Other How long have you had these symptoms (acute/chronic)?:Acute Reason for exam?:sob History of cancer?:. Surgeries, chemotherapy, or radiation?:cardiac catheterization Type of Exam?:Initial Additional signs and symptoms?:n Performed By: #### 4 6164 #### LAB [address] [place] [address] Moody Martinez M.D. [id number] Urea nitrogen [Mass/Vol] 50 mg/dL High 8-25 [facility] Comment on above: Order Comment: Injur y/Trauma or Illness?:Illness/Other How long have you had these symptoms (acute/chronic)?:Acute Reason for exam?:sob History of cancer?:. Surgeries, chemotherapy, or radiation?:cardiac catheterization Type of Exam?:Initial Additional signs and symptoms?:n Performed By: #### 4 6124 #### LAB [address] [place] [address] Moody Martinez M.D. [id number] Urea nitrogen/Creatinine [Mass ratio] 18.8 mg/mg Normal 10.0-20.0 [facility] Comment on above: Order Comment: Injur y/Trauma or Illness?:Illness/Other How long have you had these symptoms (acute/chronic)?:Acute Reason for exam?:sob History of cancer?:. Surgeries, chemotherapy, or radiation?:cardiac catheterization Type of Exam?:Initial Additional signs and symptoms?:n Performed By: #### 4 6124 #### LAB [address] [place] [address] Moody Martinez M.D. [id number] BETA-HYDROXYBUTYRATEon 02-28 BETA-HYDROXYBUTYRATE < Normal 0.0-0.3 [facility] Comment on above: Performed By: #### 4 5139 #### LAB [address] [place] [address] Moody Martinez M.D. [id number] BETA-HYDROXYBUTYRATE 1.1 mmol/L High 0.0-0.3 [facility] Comment on above: Performed By: #### 4 5139 #### LAB [address] [place] [address] Moody Martinez M.D. [id number] BETA-HYDROXYBUTYRATE 3.3 mmol/L High 0.0-0.3 [facility] Comment on above: Performed By: #### 4 4014 #### LAB [address] [place] [address] Moody Martinez M.D. [id number] BETA-HYDROXYBUTYRATE 3.3 mmol/L High 0.0-0.3 [facility] Comment on above: Performed By: #### 4 4014 #### LAB [address] [place] [address] Moody Martinez M.D. [id number] BLOOD CULTURE AEROBIC/ANAERO BICon 02-28-2025 BLOOD CULTURE AEROBIC/ANAEROBIC BLOOD CULTURE No Growth after 5 days [facility] Comment on above: Performed By: #### 4 4014 #### LAB [address] [place] [address] Moody Martinez M.D. [id number] Performed By: #### 4 4014 #### LAB [address] [place] [address] Moody Martinez M.D. [id number] CBC WITH AUTO DIFFERENTIALon 02-28-2025 AUTO NRBC 0.0 % [facility] Comment on above: Performed By: #### L [id number] #### LAB [address] [place] [address] Moody Martinez M.D. [id number] AUTO NRBC ABS COUNT 0.00 K/mcL Normal 0.00-0.00 [facility] Comment on above: Performed By: #### L [id number] #### LAB [address] [place] [address] Moody Martinez M.D. [id number] BASOPHILS ABSOLUTE COUNT 0.05 K/mcL Normal 0.00-0.30 [facility] Comment on above: Performed By: #### L [id number] #### LAB [address] [place] [address] Moody Martinez M.D. [id number] Basophils/100 WBC (Bld) 0.3 % [facility] Comment on above: Performed By: #### L [id number] #### LAB [address] [place] [address] Moody Martinez M.D. [id number] Eosinophils (Bld) [#/Vol] 0.00 10*3/uL Normal 0.00-0.50 [facility] Comment on above: Performed By: #### L [id number] #### LAB [address] [place] [address] Moody Martinez M.D. [id number] Eosinophils/100 WBC (Bld) 0.0 % [facility] Comment on above: Performed By: #### L [id number] #### LAB [address] [place] [address] Moody Martinez M.D. [id number] Erythrocyte distribution width (RBC) [Ratio] 13.5 % Normal 11.6-14.8 [facility] Comment on above: Performed By: #### L [id number] #### LAB [address] [place] [address] Moody Martinez M.D. [id number] Hematocrit (Bld) [Volume fraction] 40.2 % Low 41.0-53.0 [facility] Comment on above: Performed By: #### L [id number] #### LAB [address] [place] [address] Moody Martinez M.D. [id number] Hemoglobin (Bld) [Mass/Vol] 13.1 g/dL Low 13.5-17.5 [facility] Comment on above: Performed By: #### L [id number] #### LAB [address] [place] [address] Moody Martinez M.D. [id number] IG ABSOLUTE 0.16 K/mcL Normal 0.00-0.30 [facility] Comment on above: Performed By: #### L [id number] #### LAB [address] [place] [address] Moody Martinez M.D. [id number] IG PERCENT 0.80 % Normal [facility] Comment on above: Result Comment: The IG parameter is the percentage of metamyelocytes, myelocytes and promyelocytes. An immature granulocyte count (IG) of 1% or more suggests the possibility of infection, an IG count of 3% is very likely related to an infection. Performed By: #### L [id number] #### LAB [address] [place] [address] Moody Martinez M.D. [id number] Lymphocytes (Bld) [#/Vol] 1.13 10*3/uL Normal 0.90-4.00 [facility] Comment on above: Performed By: #### L [id number] #### LAB [address] [place] [address] Moody Martinez M.D. [id number] Lymphocytes/100 WBC (Bld) 6.0 % Normal [facility] Comment on above: Performed By: #### L [id number] #### LAB [address] [place] [address] Moody Martinez M.D. [id number] MCH (RBC) [Entitic mass] 30.8 pg Normal 26.0-34.0 [facility] Comment on above: Performed By: #### L [id number] #### LAB [address] [place] [address] Moody Martinez M.D. [id number] MCV (RBC) [Entitic vol] 94.6 fL Normal 80.0-100.0 [facility] Comment on above: Performed By: #### L [id number] #### LAB [address] [place] [address] Moody Martinez M.D. [id number] MEAN CORPUSCULAR HEMOGLOBIN CONC 32.6 g/dL Normal 31.0-37.0 [facility] Comment on above: Performed By: #### L [id number] #### LAB [address] [place] [address] Moody Martinez M.D. [id number] Monocytes (Bld) [#/Vol] 0.91 10*3/uL High 0.30-0.90 [facility] Comment on above: Performed By: #### L [id number] #### LAB [address] [place] [address] Moody Martinez M.D. [id number] Monocytes/100 WBC (Bld) 4.8 % Normal [facility] Comment on above: Performed By: #### L [id number] #### LAB [address] [place] [address] Moody Martinez M.D. [id number] NEUTROPHILS ABSOLUTE COUNT 16.63 K/mcL High 1.70-7.00 [facility] Comment on above: Performed By: #### L [id number] #### LAB [address] [place] [address] Moody Martinez M.D. [id number] Neutrophils/100 WBC (Bld) 88.1 % Normal [facility] Comment on above: Performed By: #### L [id number] #### LAB [address] [place] [address] Moody Martinez M.D. [id number] Platelet mean volume (Bld) [Entitic vol] 11.1 fL Normal 9.4-12.4 [facility] Comment on above: Performed By: #### L [id number] #### LAB [address] [place] [address] Moody Martinez M.D. [id number] Platelets (Bld) [#/Vol] 258 10*3/uL Normal 150-400 [facility] Comment on above: Performed By: #### L [id number] #### LAB [address] [place] [address] Moody Martinez M.D. [id number] RBC (Bld) [#/Vol] 4.25 10*6/uL Low 4.50-5.90 [facility] Comment on above: Performed By: #### L [id number] #### LAB [address] [place] [address] Moody Martinez M.D. [id number] WBC (Bld) [#/Vol] 18.88 10*3/uL High 4.50-11.00 [facility] Comment on above: Performed By: #### L [id number] #### LAB [address] [place] [address] Moody Martinez M.D. [id number] COVID-19/INFLUENZA A,B MOLEC Celine 02-28-2025 SARS-CoV-2 (COVID-19) Ab IA Ql SARS-COV-2 (FERDINAND) Not Detected INFLUENZA A (FERDINAND) Not Detected INFLUENZA B (FERDINAND) Not Detected Normal Not Detected [facility] Comment on above: Performed By: #### L [id number] #### LAB [address] [place], [place] [address] Moody Martinez M.D. [id number] CRP, INFLAMMATIONon 02-29-20 CRP (INFLAMMATION) < Normal 0.0-10.0 [facility] Comment on above: Performed By: #### 4 5334 #### LAB [address] [place], [place] [address] Moody Martinez M.D. [id number] D-DIMER, QUANTITATIVEon 02-01 D-DIMER QUANTITATIVE 1.67 mcg/mL FEU High 0.27-0.49 [facility] Comment on above: Order Comment: A D-d bethany concentration of <0.5 micrograms per milliliter FEU is considered a low probability for pulmonary embolus (PE) and deep venous thrombosis (DVT). Results of this test should always be interpreted in conjunction with the patient's medical history,clinical presentation, and other findings. Clinical diagnosis should not be based on the results of the D-dimer alone. Performed By: #### 4 5434 #### LAB [address] [place], [place] [address] Moody Martinez M.D. [id number] ED Procedureon 02-28-2025 ED Procedure ECG 12 Lead Date/Time: 02/28/2025 4:33 AM Performed by: Conchita Fulton MD Authorized by: Conchita Fulton MD Interpreted by ED attending physician Rhythm: sinus rhythm and sinus tachycardia BPM: 103 Clinical impression: sinus tachycardia Comments: RI interval 144 QRS duration 90 QTc 437 AUTHENTICATED BY CONCHITA FULTON, ON 02/28/2025 04:33:26 [facility] ED Procedure EKG 12-lead Date/Time: 02/28/2025 3:26 AM Performed by: Conchita Fulton MD Authorized by: Conchita Fulton MD Interpreted by ED attending physician Rhythm: sinus rhythm BPM: 88 Comments: RI interval 162 QRS duration 102 QTc 491 T wave inversion in lead III and aVF as well as V5 V6 AUTHENTICATED BY CONCHITA FULTON, ON 02/28/2025 03:26:34 [facility] ED Prov Noteon 02-28-2025 ED Prov Note [facility] ATTENDING NOTE: NAME: Enoc Fernandes CSN: [id number] 79 y.o. PCP: Ryley Jeter MD History: Chief Complaint: Shortness of Breath HPI: The history was obtained from the patient and EMS. Enoc is a 79 y.o. male who presents with a chief complaint of Shortness of Breath. Patient presented via EMS for shortness of breath Patient does have a known history of heart failure CKD emphysema diabetes high blood pressure high cholesterol and tobacco use Patient reports sudden worsening of his shortness of breath tonight He says this has happened before it typically is a pneumonia and he is usually admitted to the hospital Patient normally wears 2 L at baseline and has appropriate oxygen saturation at time of arrival Patient denies headache vision change chest pain abdominal pain nausea vomiting rash wounds Patient endorses worsening shortness of breath increased sputum production increased cough PMHx: 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 Hx: Family History Problem Relation Age of Onset Coronary artery disease Father Alzheimer's disease Father SOC. Hx: Social History [1] MEDs: Previous Medications Medication Sig acetaminophen (Tylenol Arthritis Pain) 650 MG CR tablet Take 1 (one) tablet (650 mg total) by mouth every 8 (eight) hours as needed for pain . amLODIPine (NORVASC) 10 MG tablet Take 1 (one) tablet (10 mg total) by mouth daily . aspirin 81 MG EC tablet Take 1 (one) tablet (81 mg total) by mouth daily . blood sugar diagnostic (Contour Next Test Strips) strips TEST BLOOD GLUCOSE FOUR TIMES DAILY E10.65 . cefdinir (OMNICEF) 300 MG capsule Take 1 (one) capsule (300 mg total) by mouth 2 (two) times a day . ezetimibe (Zetia) 10 mg tablet Take 1 (one) tablet (10 mg total) by mouth daily . furosemide (LASIX) 40 MG tablet Take 1 (one) tablet (40 mg total) by mouth 2 (two) times a day . (Patient taking differently: Take 1 (one) tablet (40 mg total) by mouth daily .) hydrALAZINE (APRESOLINE) 50 MG tablet Take 1 (one) tablet (50 mg total) by mouth 2 (two) times a day . ibuprofen (ADVIL ORAL) Take by mouth . insulin aspart U-100 100 unit/mL (3 mL) InPn Inject 10-12 units before breakfast, 10-12 units before lunch, 10-12 units before dinner. Max daily dose 36 units. . insulin glargine (Basaglar KwikPen U-100 Insulin) 100 unit/mL (3 mL) InPn Inject 18 (eighteen) Units under the skin nightly . insulin lispro 100 unit/mL InPn Inject 12 (twelve) Units under the skin 3 (three) times a day . isosorbide mononitrate (IMDUR) 30 MG 24 hr tablet Take 1 (one) tablet (30 mg total) by mouth daily . Klor-Con M20 20 mEq tablet Take 1 (one) tablet (20 mEq total) by mouth daily . lisinopriL (PRINIVIL,ZESTRIL) 5 MG tablet Take 1 (one) tablet (5 mg total) by mouth daily . (Patient not taking: Reported on 02/28/2025 .) metoprolol succinate (TOPROL-XL) 25 MG 24 hr tablet Take 1 (one) tablet (25 mg total) by mouth daily . nitroGLYCERIN (Nitrostat) 0.[address] 1 (one) tablet (0.4 mg total) under the tongue every 5 (five) minutes as needed for chest pain , if no relief after 3 doses call 911 . OXYGEN-AIR DELIVERY SYSTEMS MISC Inhale 2 L/min See Admin Instructions . pen needle, diabetic (BD Ultra-Fine Jolynn Pen Needle) 32 gauge x Ndle Use as directed 4x daily Dx code E10.65 . predniSONE (DELTASONE) 20 MG tablet Take 1 (one) tablet (20 mg total) by mouth For 5 days . tamsulosin (FLOMAX) 0.4 mg capsule Take 1 (one) capsule (0.4 mg total) by mouth daily . ALL: Allergies[2] ROS: Positives and pertinent negatives as per HPI. All other systems were reviewed and are negative. Physical Exam: Patient Vitals for the past 24 hrs: BP Temp Temp src Pulse Resp SpO2 Height Weight 02/28/25 0500 (!) 194/62 -- -- 97 (!) 22 (!) 88 % -- -- 02/28/25 0400 (!) 201/68 -- -- 81 17 91 % -- -- 02/28/25 0344 (!) 179/109 -- -- 87 (!) 20 95 % -- -- 02/28 (more content not included)... Normal [facility] HEMOGLOBIN A1Con 02-28-2025 Glucose [Mass/Vol] 171 mg/dL High 74-114 [facility] Comment on above: Performed By: #### 4 8202 ####[facility] [address] [place], [place] [address] Moody Martinez M.D. [id number] HbA1c (Bld) [Mass fraction] 7.6 % High 4.2-5.6 [facility] Comment on above: Performed By: #### 4 8202 ####[facility] [address] [place], [place] [address] Moody Martinez M.D. [id number] LACTIC ACID, PLASMAon 2024 LACTIC ACID, PLASMA 2.9 mmol/L High 0.6-2.0 [facility] Comment on above: Performed By: #### 4 4014 #### [facility] [address] [place], [place] [address] Moody Martinez M.D. [id number] LEGIONELLA ANTIGEN, URINEon 02-28-2025 LEGIONELLA ANTIGEN, URINE LEGIONELLA ANTIGEN Negative for Legionella antigen COMMENT: Results may be affected if patient is on diuretics. INTERPRETATION OF RESULTS: Test detects Legionella pneumophilia serogroup 1 antigens in urine. Legionnaires disease cannot be ruled out since other serogroups and species may also cause disease. Normal [facility] Comment on above: Performed By: #### 4 4090 #### LAB [address] [place] [address] Moody Martinez M.D. [id number] MRSA DNA AMPLIFIED PROBEon 0 02-28-2025 MRSA DNA AMPLIFIED PROBE Negative Normal Not Detected, MRSA NEGATIVE [facility] Comment on above: Performed By: #### 4 8061 #### LAB [address] [place] [address] Moody Martinez M.D. [id number] NT PRO BNPon 02-28-2025 Natriuretic peptide B (Bld) [Mass/Vol] 9634 pg/mL [facility] 0300 [facility] Comment on above: Order Comment: Injur y/Trauma or Illness?:Illness/Other How long have you had these symptoms (acute/chronic)?:Acute Reason for exam?:sob History of cancer?:. Surgeries, chemotherapy, or radiation?:cardiac catheterization Type of Exam?:Initial Additional signs and symptoms?:n Performed By: #### 4 7395 #### LAB [address] [place] [address] Moody Martinez M.D. [id number] Natriuretic peptide B (Bld) [Mass/Vol] 3396 pg/mL [facility] [address] Comment on above: Order Comment: Pride Study Cut-offsRule In:< /= 50 Years >450 pg/mL51 Years - 75 Years >900 pg/mL76 Years - 99 Years >1800 pg/mLRule Out:All patients <300 pg/mL Performed By: #### 4 7395 #### LAB [address] [place] [address] Moody Martinez M.D. [id number] OSMOLALITYon 02-28-2025 Osmolality [Osmolality] 328 mosm/kg High 275-295 [facility] Comment on above: Performed By: #### 4 6230 #### LAB [address] [place] [address] Moody Martinez M.D. [id number] PHOSPHORUSon 02-28-2025 Phosphate [Mass/Vol] 2.5 mg/dL Normal 2.3-3.7 [facility] Comment on above: Performed By: #### 4 6299 ####[facility] [address] [place] [id number] Moody Martinez M.D. [id number] Phosphate [Mass/Vol] 2.7 mg/dL Normal 2.3-3.7 [facility] Comment on above: Performed By: #### 4 6299 #### LAB [address] [place] [address] Moody Martinez M.D. [id number] Phosphate [Mass/Vol] 3.5 mg/dL Normal 2.3-3.7 [facility] Comment on above: Performed By: #### 4 6299 #### LAB [address] [place] [address] Moody Martinez M.D. [id number] POC GLUCOSE [facility] 025 Glucose [Mass/Vol] 236 mg/dL High [address] [place] [address] Comment on above: Performed By: #### 4 6932 #### LAB [address] [place] [address] Moody Martinez M.D. [id number] Glucose [Mass/Vol] 153 mg/dL High [address] [place] [address] Comment on above: Performed By: #### L [id number] #### [facility] [address] [place] [address] Moody Martinez M.D. [id number] Glucose [Mass/Vol] 57 mg/dL Low [address] [place] [address] Comment on above: Performed By: #### 4 6932 ####[facility] [address] [place] [address] Moody Martinez M.D. [id number] Glucose [Mass/Vol] 73 mg/dL Normal [address] [place] [address] Comment on above: Performed By: #### 4 6932 #### LAB [address] [place] [address] Moody Martinez M.D. [id number] Glucose [Mass/Vol] 102 mg/dL [address] Comment on above: Performed By: #### L [id number] #### LAB [address] [place] [address] Moody Martinez M.D. [id number] Glucose [Mass/Vol] 119 mg/dL [address] Comment on above: Performed By: #### 4 6932 #### [facility] [address] [place] [address] Moody Martinez M.D. [id number] Glucose [Mass/Vol] 146 mg/dL [address] Comment on above: Performed By: #### 4 6932 ####[facility] [address] [place] [address] Moody Martinez M.D. [id number] Glucose [Mass/Vol] 177 mg/dL [address] Comment on above: Performed By: #### 4 6932 #### LAB [address] [place] [address] Moody Martinez M.D. [id number] Glucose [Mass/Vol] 241 mg/dL [address] Comment on above: Performed By: #### 4 6932 #### LAB [address] [place] [address] Moody Martinez M.D. [id number] Glucose [Mass/Vol] 326 mg/dL [address] Comment on above: Performed By: #### 4 6975 ####[facility] [address] [place] [address] Moody Martinez M.D. [id number] Glucose [Mass/Vol] 429 mg/dL Off scale [address] Comment on above: Order Comment: Criti christian result acted upon time of test. Test performed at bedside. Performed By: #### 4 6932 ####[facility] [address] [place] [address] Moody Martinez M.D. [id number] POC GLUCOSE > Off scale high [address] [place] [address] Comment on above: Order Comment: Criti christian result acted upon time of test. Test performed at bedside. Performed By: #### 4 6932 ####[facility] [address] [place] [address] Moody Martinez M.D. [id number] POC GLUCOSE > Off scale high [address] [place] [address] Comment on above: Order Comment: Criti christian result acted upon time of test. Test performed at bedside. Performed By: #### 4 6932 ####[facility] [address] [place] [address] Moody Martinez M.D. [id number] POC VENOUS BLOOD GAS PANEL-P [facility] 02-28-2025 BASE EXCESS, VENOUS -5.7 Low -2.0-2.0 [facility] Comment on above: Performed By: #### 4 8717 ####[facility] [address] [place] [address] Moody Martinez M.D. [id number] FIO2 50 Normal [facility] Comment on above: Performed By: #### 4 8717 ####[facility] [address] [place] [address] Moody Martinez M.D. [id number] HCO3 (Bld) [Moles/Vol] 19.3 mmol/L Low 24.0-28.0 [facility] Comment on above: Performed By: #### 4 8717 ####[facility] [address] [place] [address] Moody Martinez M.D. [id number] Hematocrit (Bld) [Volume fraction] 37.3 % Low 41.0-53.0 [facility] Comment on above: Performed By: #### 4 8717 ####[facility] [address] [place] [address] Moody Martinez M.D. [id number] Hemoglobin (Bld) [Mass/Vol] 12.2 g/dL Low 13.5-17.5 [facility] Comment on above: Performed By: #### 4 8717 #### LAB [address] [place] [address] Moody Martinez M.D. [id number] Oxygen saturation in Blood 93.7 % High 40.0-70.0 [facility] Comment on above: Performed By: #### 4 8717 #### LAB [address] [place] [address] Moody Martinez M.D. [id number] PCO2 VENOUS 35.1 mm Hg Low 41.0-51.0 [facility] Comment on above: Performed By: #### 4 8717 #### LAB [address] [place] [address] Moody Martinez M.D. [id number] PH VENOUS 7.35 Normal 7.32-7.42 [facility] Comment on above: Performed By: #### 4 8717 #### LAB [address] [place] [address] Moody Martinez M.D. [id number] PO2 VENOUS 68 mm Hg High 25-40 [facility] Comment on above: Performed By: #### 4 8717 #### LAB [address] [place] [address] Moody Martinez M.D. [id number] RESP RATE RAD 14 Normal [facility] Comment on above: Performed By: #### 4 8717 #### LAB [address] [place] [address] Moody Martienz M.D. [id number] SPECIMEN SOURCE RADIANCE Not specified [facility] Comment on above: Performed By: #### 4 8717 #### LAB [address] [place] [address] Moody Martinez M.D. [id number] BASE EXCESS, VENOUS -5.9 Low -2.0-2.0 [facility] Comment on above: Performed By: #### 4 8717 #### LAB [address] [place] [address] Moody Martinez M.D. [id number] HCO3 (Bld) [Moles/Vol] 20.5 mmol/L Low 24.0-28.0 [facility] Comment on above: Performed By: #### 4 8717 ####[facility] [address] [place] [address] Moody Martinez M.D. [id number] Hematocrit (Bld) [Volume fraction] 42.0 % Normal 41.0-53.0 [facility] Comment on above: Performed By: #### 4 8717 ####[facility] [address] [place] [address] Moody Martinez M.D. [id number] Hemoglobin (Bld) [Mass/Vol] 13.7 g/dL Normal 13.5-17.5 [facility] Comment on above: Performed By: #### 4 8717 ####[facility] [address] [place] [address] Moody Martinez M.D. [id number] LITER FLOW 2 Normal [facility] Comment on above: Performed By: #### 4 8717 ####[facility] [address] [place] [address] Moody Martinez M.D. [id number] Oxygen saturation in Blood 50.9 % Normal 40.0-70.0 [facility] Comment on above: Performed By: #### 4 8717 #### LAB [address] [place] [address] Moody Martinez M.D. [id number] PCO2 VENOUS 43.1 mm Hg Normal 41.0-51.0 [facility] Comment on above: Performed By: #### 4 8717 ####[facility] [address] [place] [address] Moody Martinez M.D. [id number] PH VENOUS 7.29 Low 7.32-7.42 [facility] Comment on above: Performed By: #### 4 8717 ####[facility] [address] [place] [address] Moody Martinez M.D. [id number] PO2 VENOUS 30 mm Hg Normal 25-40 [facility] Comment on above: Performed By: #### 4 8717 #### LAB [address] [place] [address] Moody Martinez M.D. [id number] SPECIMEN SOURCE RADIANCE Not specified Normal [facility] Comment on above: Performed By: #### 4 8717 #### LAB [address] [place] [address] Moody Martinez M.D. [id number] PROCALCITONINon 02-28-2025 PROCALCITONIN 0.18 ng/ml Normal <0.50 [facility] Comment on above: Order Comment: Resul ts <0.50 ng/ml represent a low risk of severe sepsis and/or septic shock. Performed By: #### 4 6932 #### LAB [address] [place] [address] Moody Martinez M.D. [id number] REFLEX LACTIC ACID, PLASMAon 02-28-2025 LACTIC ACID, PLASMA 2.0 mmol/L Normal 0.6-2.0 [facility] Comment on above: Performed By: #### 4 4014 #### LAB [address] [place] [address] Moody Martinez M.D. [id number] LACTIC ACID, PLASMA 3.5 mmol/L High 0.6-2.0 [facility] Comment on above: Performed By: #### L [id number] #### LAB [address] [place] [address] Moody Martinez M.D. [id number] RESPIRATORY PCR PANELon 02-01 RESPIRATORY PCR PANEL INFLUENZA A FILMAR RAY Not Detected INFLUENZA B FILM ARRAY Not Detected PARAINFLUENZA VIRUS 1 Not Detected PARAINFLUENZA VIRUS 2 Not Detected PARAINFLUENZA VIRUS 3 Not Detected PARAINFLUENZA VIRUS 4 Not Detected RESPIRATORY SYNCYTIAL VIRUS FILM ARRAY Not Detected HUMAN METAPNEUMOVIRUS Not Detected HUMAN RHINOVIRUS/ENTEROVIRU S Not Detected ADENOVIRUS FILM ARRAY Not Detected CORONAVIRUS 229E Not Detected CORONAVIRUS HKU1 Not Detected CORONAVIRUS NL63 Not Detected CORONAVIRUS OC43 Not Detected BORDETELLA PARAPERTUSSIS Not Detected BORDETELLA PERTUSSIS Not Detected MYCOPLASMA PNEUMONIAE Not Detected CHLAMYDIA PNEUMONIAE Not Detected SARS-COV-2 (BIOFIRE) Not Detected Normal Not Detected [facility] Comment on above: Performed By: #### L [id number] ####[facility] [address] [place] [address] Jose Cisse M.D. [id number] S.PNEUMONIAE URINE ANTIGENon 02-28-2025 S.PNEUMONIAE URINE ANTIGEN STREP PNEUMONIAE ANTIGEN, URINE Presumptive Negative for Pneumococcal pneumoniae A negative result does not rule out Streptococcus pneumoniae infection since the antigen present in the sample may be below the detection limit of the test. Normal [facility] Comment on above: Performed By: #### 4 7222 #### LAB [address] [place] [address] Moody Martinez M.D. [id number] SEDIMENTATION RATEon 025 SEDIMENTATION RATE, ERYTHROCYTE 16 mm/hr Normal 0-20 [facility] Comment on above: Performed By: #### 4 6477 #### LAB [address] [place] [address] Moody Martinez M.D. [id number] TROPONIN X 2 (NOW AND REPEAT IN 2 HOURS)on 02-28-2025 TROPONIN T DELTA % NG/L 176 % Off scale high <20% of Baseline Troponin [facility] Comment on above: Performed By: #### 4 6608 #### LAB [address] [place] [address] Moody Martinez M.D. [id number] TROPONIN T DELTA CHANGE INTERPRETATION Probable acute injury or myocardial infarction. Normal [facility] Comment on above: Performed By: #### 4 6608 #### LAB [address] [place] [address] Moody Martinez M.D. [id number] TROPONIN T NG/L 207 ng/L Off scale high <=22 [facility] Comment on above: Performed By: #### 4 6608 #### LAB [address] [place] [address] Moody Martinez M.D. [id number] BASELINE TROPONIN T NG/L 75 ng/L Off scale high <=22 [facility] Comment on above: Performed By: #### 4 4014 #### LAB [address] [place] [address] Moody Martinez M.D. [id number] TROPONIN T INTERPRETATION Possible acute cardiac injury. Normal [facility] Comment on above: Performed By: #### 4 4014 #### LAB [address] [place] [address] Moody Martinez M.D. [id number] TSH WITH REFLEX FREE T4on TSH Qn 0.61 m[IU]/L Normal 0.27-4.20 [facility] Comment on above: Performed By: #### 4 6612 #### LAB [address] [place] [address] Moody Martinez M.D. [id number] URINALYSISon 02-28-2025 BACTERIA, URINE None Seen Normal None Seen [facility] Comment on above: Order Comment: Micro scopic examination is performed on all urinalysis samples and only positive findings are reported. The test for blood on the chemical analytic portion of urinalysis may also be positive due to hemoglobinuria and myoglobinuria and if red blood cells are present they are quantified by microscopic examination. Performed By: #### 4 6625 #### LAB [address] [place] [address] Moody Martinez M.D. [id number] BILIRUBIN, URINE Negative Normal Negative [facility] Comment on above: Order Comment: Micro scopic examination is performed on all urinalysis samples and only positive findings are reported. The test for blood on the chemical analytic portion of urinalysis may also be positive due to hemoglobinuria and myoglobinuria and if red blood cells are present they are quantified by microscopic examination. Performed By: #### 4 6631 #### LAB [address] [place] [address] Moody Martinez M.D. [id number] BLOOD, URINE Negative Normal Negative [facility] Comment on above: Order Comment: Micro scopic examination is performed on all urinalysis samples and only positive findings are reported. The test for blood on the chemical analytic portion of urinalysis may also be positive due to hemoglobinuria and myoglobinuria and if red blood cells are present they are quantified by microscopic examination. Performed By: #### 4 6625 #### LAB [address] [place] [address] Moody Martinez M.D. [id number] Clarity (U) Clear Normal Clear [facility] Comment on above: Order Comment: Micro scopic examination is performed on all urinalysis samples and only positive findings are reported. The test for blood on the chemical analytic portion of urinalysis may also be positive due to hemoglobinuria and myoglobinuria and if red blood cells are present they are quantified by microscopic examination. Performed By: #### 4 6625 #### LAB [address] [place] [address] Moody Martinez M.D. [id number] Color (U) Yellow Normal Colorless, Yellow [facility] Comment on above: Order Comment: Micro scopic examination is performed on all urinalysis samples and only positive findings are reported. The test for blood on the chemical analytic portion of urinalysis may also be positive due to hemoglobinuria and myoglobinuria and if red blood cells are present they are quantified by microscopic examination. Performed By: #### 4 6625 #### LAB [address] [place] [address] Moody Martinez M.D. [id number] Glucose Ql (U) >=500 Abnormal Negative [facility] Comment on above: Order Comment: Micro scopic examination is performed on all urinalysis samples and only positive findings are reported. The test for blood on the chemical analytic portion of urinalysis may also be positive due to hemoglobinuria and myoglobinuria and if red blood cells are present they are quantified by microscopic examination. Performed By: #### 4 6625 #### LAB [address] [place] [address] Moody Martinez M.D. [id number] Hyaline casts LM Ql (Urine sed) 3-5 Abnormal 0-2 [facility] Comment on above: Order Comment: Micro scopic examination is performed on all urinalysis samples and only positive findings are reported. The test for blood on the chemical analytic portion of urinalysis may also be positive due to hemoglobinuria and myoglobinuria and if red blood cells are present they are quantified by microscopic examination. Performed By: #### 4 6625 #### LAB [address] [place] [address] Moody aMrtinez M.D. [id number] Ketones Ql (U) Trace Abnormal Negative [facility] Comment on above: Order Comment: Micro scopic examination is performed on all urinalysis samples and only positive findings are reported. The test for blood on the chemical analytic portion of urinalysis may also be positive due to hemoglobinuria and myoglobinuria and if red blood cells are present they are quantified by microscopic examination. Performed By: #### 4 6625 #### LAB [address] [place] [address] Moody Martinez M.D. [id number] Leukocyte esterase Test strip Ql (U) Negative Normal Negative [facility] Comment on above: Order Comment: Micro scopic examination is performed on all urinalysis samples and only positive findings are reported. The test for blood on the chemical analytic portion of urinalysis may also be positive due to hemoglobinuria and myoglobinuria and if red blood cells are present they are quantified by microscopic examination. Performed By: #### 4 6625 #### LAB [address] [place] [address] Moody Martinez M.D. [id number] MUCUS, URINE Rare Normal None Seen, Rare [facility] Comment on above: Order Comment: Micro scopic examination is performed on all urinalysis samples and only positive findings are reported. The test for blood on the chemical analytic portion of urinalysis may also be positive due to hemoglobinuria and myoglobinuria and if red blood cells are present they are quantified by microscopic examination. Performed By: #### 4 6625 #### LAB [address] [place] [address] Moody Martinez M.D. [id number] NITRITE, URINE Negative Normal Negative [facility] Comment on above: Order Comment: Micro scopic examination is performed on all urinalysis samples and only positive findings are reported. The test for blood on the chemical analytic portion of urinalysis may also be positive due to hemoglobinuria and myoglobinuria and if red blood cells are present they are quantified by microscopic examination. Performed By: #### 4 6625 #### LAB [address] [place] [id number] Moody Martinez M.D. [id number] pH (U) 5.5 [pH] Normal 5.0-7.0 [facility] Comment on above: Order Comment: Micro scopic examination is performed on all urinalysis samples and only positive findings are reported. The test for blood on the chemical analytic portion of urinalysis may also be positive due to hemoglobinuria and myoglobinuria and if red blood cells are present they are quantified by microscopic examination. Performed By: #### 4 6625 #### LAB [address] [place] [address] Moody Martinez M.D. [id number] PROTEIN, URINE Negative Normal Negative [facility] Comment on above: Order Comment: Micro scopic examination is performed on all urinalysis samples and only positive findings are reported. The test for blood on the chemical analytic portion of urinalysis may also be positive due to hemoglobinuria and myoglobinuria and if red blood cells are present they are quantified by microscopic examination. Performed By: #### 4 6625 #### LAB [address] [address] Moody Martinez M.D. [id number] RBC LM.HPF (Urine sed) [#/Area] 1 /[HPF] Normal 0-3 [facility] Comment on above: Order Comment: Micro scopic examination is performed on all urinalysis samples and only positive findings are reported. The test for blood on the chemical analytic portion of urinalysis may also be positive due to hemoglobinuria and myoglobinuria and if red blood cells are present they are quantified by microscopic examination. Performed By: #### 4 6625 #### LAB [address] [address] Moody Martinez M.D. [id number] Specific gravity (U) [Rel density] 1.012 Normal 1.005-1.025 [facility] Comment on above: Order Comment: Micro scopic examination is performed on all urinalysis samples and only positive findings are reported. The test for blood on the chemical analytic portion of urinalysis may also be positive due to hemoglobinuria and myoglobinuria and if red blood cells are present they are quantified by microscopic examination. Performed By: #### 4 6625 #### LAB [address] [address] Moody Martinez M.D. [id number] UROBILINOGEN, URINE <2.0 Normal <2.0 [facility] Comment on above: Order Comment: Micro scopic examination is performed on all urinalysis samples and only positive findings are reported. The test for blood on the chemical analytic portion of urinalysis may also be positive due to hemoglobinuria and myoglobinuria and if red blood cells are present they are quantified by microscopic examination. Performed By: #### 4 6625 #### LAB [address] [address] Moody Martinez M.D. [id number] WBC LM.HPF (Urine sed) [#/Area] 1 /[HPF] Normal 0-5 [facility] Comment on above: Order Comment: Micro scopic examination is performed on all urinalysis samples and only positive findings are reported. The test for blood on the chemical analytic portion of urinalysis may also be positive due to hemoglobinuria and myoglobinuria and if red blood cells are present they are quantified by microscopic examination. Performed By: #### 4 6625 #### LAB [address] [place], [place] [address] Moody Martinez M.D. [id number] URINE AEROBIC CULTUREon 02-01 URINE AEROBIC CULTURE URINE CULTURE < 10,000 CFU/mL of normal urogenital microbiota Normal [facility] Comment on above: Performed By: #### 4 4053 ####[facility] [address] [place], [place] [address] Jose Cisse M.D. [id number] XR CHEST PA/APon 02-28-2025 XR CHEST PA/AP EXAMINATION: XR CHEST PA/AP HISTORY: ORDERING SYSTEM PROVIDED HISTORY: sob, TECHNOLOGIST PROVIDED HISTORY: Illness/Other Reason for exam: sob Cancer History: . Surgery, RadiationHistory: cardiac catheterization Encounter Type: Initial Additional signs and symptoms: n ORDERING SYSTEM PROVIDED DIAGNOSIS CODES: COMPARISON: Chest radiograph dated 10/27/2024. TECHNIQUE: AP upright view of the chest performed. FINDINGS: The trachea is midline. There is mild prominence of the cardiac silhouette. There is mild to moderate atheromatous calcification at the aortic arch. There is patchy airspace disease within both hilar and infrahilar regions, left greater than right. Correlate with clinical findings to differentiate congestive heart failure from pneumonia. There is no pleural effusion. There is no pneumothorax or acute osseous abnormality. IMPRESSION: There is patchy airspace disease within both hilar and infrahilar regions, left greater than right. Correlate with clinical findings to differentiate edema from pneumonia. Workstation ID: [id number] Dictated by: LAUREEN FLORES on WedFeb 28, 2025 4:00:36 AM EDT Transcribed by: LAUREEN FLORES on WedFeb 28, 2025 4:00:36 AM EDT Finalized by: LAUREEN FLORES on WedFeb 28, 2025 4:00:36 AM EDT Normal [facility] Comment on above: Order Comment: Injur y/Trauma or Illness?:Illness/Other How long have you had these symptoms (acute/chronic)?:Acute Reason for exam?:sob History of cancer?:. Surgeries, chemotherapy, or radiation?:cardiac catheterization Type of Exam?:Initial Additional signs and symptoms?:n ALBUMIN, RANDOM URINE W/CREA Zack 02-13-2025 ALBUMIN, URINE 7.1 mg/dL Normal See Note: [facility] Comment on above: Result Comment: Refe rence Range: Reference Range Not established Performed By: #### 7 909, 06787, 6517 #### [facility] [address], [address] [place] [address] Turning Machine Operator: Jadon Velez MD ALBUMIN/CREATININE RATIO, RANDOM URINE 125 mg/g creat High <30 [facility] Comment on above: Result Comment: The ADA defines abnormalities in albumin excretion as follows: Albuminuria Category Result (mg/g creatinine) Normal to Mildly increased <30 Moderately increased 30-299 Severely increased > OR = 300 The ADA recommends that at least two of three specimens collected within a 3-6 month period be abnormal before considering a patient to be within a diagnostic category. Performed By: #### 7 909, 79258, 6517 #### [facility] of [address], [address] [place] [address] Turning Machine Operator: Jadon Velez MD Creatinine (U) [Mass/Vol] 57 mg/dL Normal 20-320 [facility] Comment on above: Performed By: #### 7 909, 74383, 6517 #### [facility] of [place] [address] Turning Machine Operator: Jadon Velez MD [facility] 02-13-2025 Albumin [Mass/Vol] 4.3 g/dL Normal 3.6-5.1 [facility] Comment on above: Performed By: #### 8 66, 7600, 496, 37763, 12561 #### [facility] of [place] [address] Turning Machine Operator: Jadon Velez MD Albumin/Globulin [Mass ratio] 1.7 {ratio} Normal 1.0-2.5 [facility] Comment on above: Performed By: #### 8 66, 7600, 496, 79427, 69603 #### [facility] of [place] [address] Turning Machine Operator: Jadon Velez MD ALP [Catalytic activity/Vol] 61 U/L Normal 35-144 [facility] Comment on above: Performed By: #### 8 66, 7600, 496, 49778, 99931 #### [facility] of [place] [address] Turning Machine Operator: Jadon Velez MD ALT [Catalytic activity/Vol] 12 U/L Normal 9-46 [facility] Comment on above: Performed By: #### 8 66, 7600, 496, 42422, 83988 #### [facility] of [place] [address] Turning Machine Operator: Jadon Velez MD AST [Catalytic activity/Vol] 16 U/L Normal 10-35 [facility] Comment on above: Performed By: #### 8 66, 7600, 496, 22949, 06630 #### [facility] of [address], [address] [place] [address] Turning Machine Operator: Jadon Velez MD Bilirubin [Mass/Vol] 0.5 mg/dL Normal 0.2-1.2 [facility] Comment on above: Performed By: #### 8 66, 7600, 496, 92675, 12312 #### [facility] of [address], [address] [place] [address] Turning Machine Operator: Jadon Velez MD Calcium [Mass/Vol] 9.3 mg/dL Normal 8.6-10.3 [facility] Comment on above: Performed By: #### 8 66, 7600, 496, 58960, 38958 #### [facility] of [address], [address] [place] [address] Turning Machine Operator: Jadon Velez MD Chloride [Moles/Vol] 102 mmol/L Normal 98-110 [facility] Comment on above: Performed By: #### 8 66, 7600, 496, 90828, 00001 #### [facility] of [place] [address] Turning Machine Operator: Jadon Velez MD CO2 [Moles/Vol] 28 mmol/L Normal 20-32 [facility] Comment on above: Performed By: #### 8 66, 7600, 496, 22643, 80121 #### [facility] of [place] [address] Turning Machine Operator: Jadon Velez MD Creatinine [Mass/Vol] 1.76 mg/dL High 0.70-1.[address] [facility] Comment on above: Performed By: #### 8 66, 7600, 496, 82383, 19476 #### [facility] of [place] [address] Turning Machine Operator: Jadon Velez MD GFR/1.73 sq M.predicted among non-blacks MDRD (S/P/Bld) [Vol rate/Area] 38 mL/min/{1.73_m2} Low > OR = 60 [facility] Comment on above: Performed By: #### 8 66, 7600, 496, 21545, 29646 #### [facility] [place] [address] Turning Machine Operator: Jadon Velez MD Globulin (S) [Mass/Vol] 2.6 g/dL Normal 1.9-3.7 [facility] Comment on above: Performed By: #### 8 66, 7600, 496, 37836, 46517 #### [facility] [place] [address] Turning Machine Operator: Jadon Velez MD Glucose [Mass/Vol] 242 mg/dL High 65-99 [facility] Comment on above: Result Comment: Fasting reference interval For someone without known diabetes, a glucose value >125 mg/dL indicates that they may have diabetes and this should be confirmed with a follow-up test. Performed By: #### 8 66, 7600, 496, 86456, 63604 #### [facility] [place] [address] Turning Machine Operator: Jadon Velez MD Potassium [Moles/Vol] 4.6 mmol/L Normal 3.5-5.[address] [facility] Comment on above: Performed By: #### 8 66, 7600, 496, 96058, 07870 #### [facility] [place] [address] Turning Machine Operator: Jadon Velez MD Protein [Mass/Vol] 6.9 g/dL Normal 6.1-8.1 [facility] Comment on above: Performed By: #### 8 66, 7600, 496, 90462, 62798 #### [facility] [place] [address] Turning Machine Operator: Jadon Velez MD Sodium [Moles/Vol] 140 mmol/L Normal 135-146 [facility] Comment on above: Performed By: #### 8 66, 7600, 496, 96402, 40384 #### [facility] of [place] [address] Turning Machine Operator: Jadon Velez MD Urea nitrogen [Mass/Vol] 38 mg/dL High 7-25 [facility] Comment on above: Performed By: #### 8 66, 7600, 496, 10950, 49374 #### [facility] of [address], [address] [place] [address] Turning Machine Operator: Jadon Velez MD Urea nitrogen/Creatinine [Mass ratio] 22 mg/mg Normal 6-22 [facility] Comment on above: Performed By: #### 8 66, 7600, 496, 71577, 92271 #### [facility] of [place] [address] Turning Machine Operator: Jadon Velez MD COMPREHENSIVE METABOLIC PANE L W/ANION GAPon 02-13-2025 Albumin [Mass/Vol] 4.3 g/dL Normal 3.6-5.1 [facility] Comment on above: Performed By: #### 7 909, 06546, 0217 #### [facility] of [place] [address] Turning Machine Operator: Jadon Velez MD ALP [Catalytic activity/Vol] 60 U/L Normal 35-144 [facility] Comment on above: Performed By: #### 7 909, 73869, 6517 #### [facility] of [place] [address] Turning Machine Operator: Jadon Velez MD ALT [Catalytic activity/Vol] 11 U/L Normal 9-46 [facility] Comment on above: Performed By: #### 7 909, 61373, 7150 #### [facility] of [place] [address] Turning Machine Operator: Jadon Velez MD AST [Catalytic activity/Vol] 15 U/L Normal 10-35 [facility] Comment on above: Performed By: #### 7 909, 06080, 6517 #### [facility] of [place] [address] Turning Machine Operator: Jadon Velez MD Bilirubin [Mass/Vol] 0.5 mg/dL Normal 0.2-1.2 [facility] Comment on above: Performed By: #### 7 909, 33822, 6517 #### [facility] of [place] [address] Turning Machine Operator: Jadon Velez MD Calcium [Mass/Vol] 9.3 mg/dL Normal 8.6-10.3 [facility] Comment on above: Performed By: #### 7 90, 74214, 6517 #### [facility] of [place] [address] Turning Machine Operator: Jadon Velez MD Chloride [Moles/Vol] 102 mmol/L Normal 98-110 [facility] Comment on above: Performed By: #### 7 90, 53514, 6517 #### [facility] of [place] [address] Turning Machine Operator: Jadon Velez MD CO2 [Moles/Vol] 28 mmol/L Normal 20-32 [facility] Comment on above: Performed By: #### 7 90, 23718, 6517 #### [facility] of [place] [address] Turning Machine Operator: Jadon Velez MD Creatinine [Mass/Vol] 1.80 mg/dL High 0.70-1.[address] [facility] Comment on above: Performed By: #### 7 90, 49310, 6517 #### [facility] of [place] [address] Turning Machine Operator: Jadon Velez MD ELECTROLYTE BALANCE 10 mmol/L (calc) Normal 7-17 [facility] Comment on above: Performed By: #### 7 90, 69387, 6517 #### [facility] [place] [address] Turning Machine Operator: Jadon Velez MD GFR/1.73 sq M.predicted among non-blacks MDRD (S/P/Bld) [Vol rate/Area] 37 mL/min/{1.73_m2} Low > OR = 60 [facility] Comment on above: Performed By: #### 7 90, 03375, 6517 #### [facility] [place] [address] Turning Machine Operator: Jadon Velez MD Glucose [Mass/Vol] 241 mg/dL High 65-99 [facility] Comment on above: Result Comment: Fasting reference interval For someone without known diabetes, a glucose value >125 mg/dL indicates that they may have diabetes and this should be confirmed with a follow-up test. Performed By: #### 7 90, 16669, 6517 #### [facility] [place] [address] Turning Machine Operator: Jadon Velez MD Potassium [Moles/Vol] 4.7 mmol/L Normal 3.5-5.3 [facility] Comment on above: Performed By: #### 7 90, 21915, 6517 #### [facility] [place] [address] Turning Machine Operator: Jadon Velez MD Protein [Mass/Vol] 6.7 g/dL Normal 6.1-8.1 [facility] Comment on above: Performed By: #### 7 90, 77772, 6517 #### [facility] [place] [address] Turning Machine Operator: Jadon Velez MD Sodium [Moles/Vol] 140 mmol/L Normal 135-146 [facility] Comment on above: Performed By: #### 7 90, 74488, 6517 #### [facility] [place] [address] Turning Machine Operator: Jadon Velez MD Urea nitrogen [Mass/Vol] 38 mg/dL High 7-25 [facility] Comment on above: Performed By: #### 7 909, 61363, 6517 #### [facility] [address], [address] [place] [address] Turning Machine Operator: Jadon Velez MD Comprehensive metabolic 2000 panelon 02-13-2025 Albumin [Mass/Vol] 4.3 g/dL 3.6 - 5.1 g/dL [facility] Albumin/Globulin [Mass ratio] 1.7 {ratio} [facility] ALP [Catalytic activity/Vol] 61 U/L 35 - 144 U/L [facility] ALT [Catalytic activity/Vol] 12 U/L 9 - 46 U/L [facility] AST [Catalytic activity/Vol] 16 U/L 10 - 35 U/L [facility] Bilirubin [Mass/Vol] 0.5 mg/dL 0.2 - 1 .2 mg/dL [facility] Calcium [Mass/Vol] 9.3 mg/dL 8.6 - 10. 3 mg/dL [facility] Chloride [Moles/Vol] 102 mmol/L 98 - 11 0 mmol/L [facility] CO2 [Moles/Vol] 28 mmol/L 20 - 32 mmol/L [facility] Creatinine [Mass/Vol] 1.76 mg/dL High 0.70 - 1.22 mg/dL [facility] GFR/1.73 sq M.predicted among non-blacks MDRD (S/P/Bld) [Vol rate/Area] 38 mL/min/{1.73_m2} Low > OR = 60 mL/min/1.73m2 [facility] Globulin (S) [Mass/Vol] 2.6 g/dL [facility] Glucose [Mass/Vol] 242 mg/dL High 65 - 99 mg/dL [facility] Comment on above: Fasting reference interval For someone without known diabetes, a glucose value >125 mg/dL indicates that they may have diabetes and this should be confirmed with a follow-up test. Interpretation and review of laboratory results Abnormal [facility] Potassium [Moles/Vol] 4.6 mmol/L 3.5 - 5.3 mmol/L [facility] Protein [Mass/Vol] 6.9 g/dL 6.1 - 8.1 g/dL [facility] Sodium [Moles/Vol] 140 mmol/L 135 - 146 mmol/L [facility] Urea nitrogen [Mass/Vol] 38 mg/dL High 7 - 25 mg/dL [facility] Urea nitrogen/Creatinine [Mass ratio] 22 mg/mg [facility] HEMOGLOBIN A1con 02-13-2025 HbA1c (Bld) [Mass fraction] 7.4 % High <5.7 [facility] Comment on above: Result Comment: For someone without known diabetes, a hemoglobin A1c value of 6.5% or greater indicates that they may have diabetes and this should be confirmed with a follow-up test. For someone with known diabetes, a value <7% indicates that their diabetes is well controlled and a value greater than or equal to 7% indicates suboptimal control. A1c targets should be individualized based on duration of diabetes, age, comorbid conditions, and other considerations. Currently, no consensus exists regarding use of hemoglobin A1c for diagnosis of diabetes for children. Performed By: #### 7 909, 82304, 6517 #### [facility] [address], [address] [place] [id number] Turning Machine Operator: Jadon Velez MD HbA1c (Bld) [Mass fraction]o n 02-13-2025 Interpretation and review of laboratory results Abnormal [facility] Hemoglobin A1con 02-13-2025 HbA1c (Bld) [Mass fraction] 7.4 % High NINF - 5.7 % [facility] Comment on above: For someone without known diabetes, a hemoglobin A1c value of 6.5% or greater indicates that they may have diabetes and this should be confirmed with a follow-up test. For someone with known diabetes, a value <7% indicates that their diabetes is well controlled and a value greater than or equal to 7% indicates suboptimal control. A1c targets should be individualized based on duration of diabetes, age, comorbid conditions, and other considerations. Currently, no consensus exists regarding use of hemoglobin A1c for diagnosis of diabetes for children. LIPID PANEL, STANDARDon 01-30 Cholesterol [Mass/Vol] 148 mg/dL Normal <200 [facility] Comment on above: Performed By: #### 8 66, 3740, 496, 91376, 08877 #### [facility] [address], [address] [place] [phone] Turning Machine Operator: Jadon Velez MD Cholesterol in HDL [Mass/Vol] 57 mg/dL Normal > OR = 40 [facility] Comment on above: Performed By: #### 8 66, 7600, 496, 45090, 61012 #### [facility] [place] [address] Turning Machine Operator: Jadon Velez MD Cholesterol in LDL [Mass/Vol] 74 mg/dL Normal [facility] Comment on above: Result Comment: Refe rence range: <100 Desirable range <100 mg/dL for primary prevention; <70 mg/dL for patients with CHD or diabetic patients with > or = 2 CHD risk factors. LDL-C is now calculated using the Cindy calculation, which is a validated novel method providing better accuracy than the Friedewald equation in the estimation of LDL-C. Jose Ramon SS et al. ANA LAURA. 2013;310(19): 3816-6521 (http://education.[employer]faq/SYX593) Performed By: #### 8 66, 7600, 496, 14347, 54887 #### [facility] [place] [address] Turning Machine Operator: Jadon Velez MD Cholesterol.total/Chol esterol in HDL [Mass ratio] 2.6 {ratio} Normal <5.0 [facility] Comment on above: Performed By: #### 8 66, 7600, 496, 24314, 58067 #### [facility] [place] [address] Turning Machine Operator: Jadon Velez MD NON HDL CHOLESTEROL 91 mg/dL (calc) Normal <130 [facility] Comment on above: Result Comment: For patients with diabetes plus 1 major ASCVD risk factor, treating to a non-HDL-C goal of <100 mg/dL (LDL-C of <70 mg/dL) is considered a therapeutic option. Performed By: #### 8 66, 7600, 496, 25159, 45495 #### [facility] [place] [address] Turning Machine Operator: Jadon Velez MD Triglyceride [Mass/Vol] 85 mg/dL Normal <150 [facility] Comment on above: Performed By: #### 8 66, 7600, 496, 82037, 08657 #### [facility] [address], [address] [place] [phone] Turning Machine Operator: Jadon Velez MD Lipid 1996 panelon Cholesterol [Mass/Vol] 148 mg/dL [facility] - 200 mg/dL [facility] Cholesterol in HDL [Mass/Vol] 57 mg/dL > OR = 40 [facility] Cholesterol in LDL [Mass/Vol] 74 mg/dL mg/dL (calc) [facility] Comment on above: Reference range: <10 0 Desirable range <100 mg/dL for primary prevention; <70 mg/dL for patients with CHD or diabetic patients with > or = 2 CHD risk factors. LDL-C is now calculated using the Cindy calculation, which is a validated novel method providing better accuracy than the Friedewald equation in the estimation of LDL-C. Jose Ramon SORIA et al. ANA LAURA. 2013;310(19): 8845-5197 (http://education.[employer]faq/KDX352) Cholesterol non HDL [Mass/Vol] 91 mg/dL [facility] Comment on above: For patients with di abetes plus 1 major ASCVD risk factor, treating to a non-HDL-C goal of <100 mg/dL (LDL-C of <70 mg/dL) is considered a therapeutic option. Cholesterol.total/Chol esterol in HDL [Mass ratio] 2.6 {ratio} [facility] Triglyceride [Mass/Vol] 85 mg/dL [facility] - 150 mg/dL [facility] NOTEon 02-13-2025 NOTE Normal [facility] Comment on above: Result Comment: This urine was analyzed for the presence of WBC, RBC, bacteria, casts, and other formed elements. Only those elements seen were reported. Performed By: #### 7 922, 53100, 4115 #### [facility] [address], [address] [place] [phone] Turning Machine Operator: Jadon Velez MD No Panel Informationon 02-13 [facility] T4, FREEon 02-13-2025 Free T4 [Mass/Vol] 1.4 ng/dL Normal 0.8-1.8 [facility] Comment on above: Performed By: #### 7 909, 26218, 6517 #### [facility] of [place] [address] Turning Machine Operator: Jadon Velez MD TSH W/REFLEX TO FT4on 2024 TSH W/REFLEX TO FT4 0.36 mIU/L Low 0.40-4.50 [facility] Comment on above: Performed By: #### 8 66, 7600, 496, 72514, 30794 #### [facility] of [place] [address] Turning Machine Operator: Jadon Velez MD URINALYSIS REFLEXon 02-14-20 25 Appearance (U) CLEAR Normal CLEAR [facility] Comment on above: Performed By: #### 7 909, 61031, 6517 #### [facility] of [place] [address] Turning Machine Operator: Jadon Velez MD BACTERIA NONE SEEN Normal NONE SEEN [facility] Comment on above: Performed By: #### 7 909, 24913, 6517 #### [facility] of [place] [address] Turning Machine Operator: Jadon Velez MD Bilirubin Ql (U) Negative Normal NEGATIVE [facility] Comment on above: Performed By: #### 7 909, 61718, 6517 #### [facility] of [place] [address] Turning Machine Operator: Jadon Velez MD Color (U) YELLOW Normal YELLOW [facility] Comment on above: Performed By: #### 7 909, 33646, 6517 #### [facility] of [place] [address] Turning Machine Operator: Jadon Velez MD Glucose Ql (U) Negative Normal NEGATIVE [facility] Comment on above: Performed By: #### 7 909, 47140, 6517 #### [facility] of [place] [address] Turning Machine Operator: Jadon Velez MD HYALINE CAST NONE SEEN Normal NONE SEEN [facility] Comment on above: Performed By: #### 7 909, 65862, 6517 #### [facility] of [address], [address] [place] [address] Turning Machine Operator: Jadon Velez MD Ketones Ql (U) Negative Normal NEGATIVE [facility] Comment on above: Performed By: #### 7 909, 66278, 6517 #### [facility] of [address], [address] [place] [address] Turning Machine Operator: Jadon Velez MD Leukocyte esterase Test strip Ql (U) TRACE Abnormal NEGATIVE [facility] Comment on above: Performed By: #### 7 909, 48001, 6517 #### [facility] of [address], [address] [place] [address] Turning Machine Operator: Jadon Velez MD Nitrite Ql (U) Negative Normal NEGATIVE [facility] Comment on above: Performed By: #### 7 909, 74533, 6517 #### [facility] of [address], [address] [place] [address] Turning Machine Operator: Jadon Velez MD OCCULT BLOOD Negative Normal NEGATIVE [facility] Comment on above: Performed By: #### 7 909, 03410, 6517 #### [facility] of [address], [address] [place] [address] Turning Machine Operator: Jadon Velez MD pH (U) 6.0 [pH] Normal 5.0-8.0 [facility] Comment on above: Performed By: #### 7 909, 86788, 6517 #### [facility] of [place] [address] Turning Machine Operator: Jadon Velez MD Protein Ql (U) 1+ Abnormal NEGATIVE [facility] Comment on above: Performed By: #### 7 909, 88144, 6517 #### [facility] of [address], [address] [place] [address] Turning Machine Operator: Jadon Velze MD RBC NONE SEEN Normal < OR = 2 [facility] Comment on above: Performed By: #### 7 909, 40893, 6517 #### [facility] of [address], [address] [place] [address] Turning Machine Operator: Jadon Velez MD Specific gravity (U) [Rel density] 1.011 Normal 1.001-1.035 [facility] Comment on above: Performed By: #### 7 909, 02134, 6517 #### [facility] of [address], [address] [place] [address] Turning Machine Operator: Jadon Velez MD SQUAMOUS EPITHELIAL CELLS NONE SEEN Normal < OR = 5 [facility] Comment on above: Performed By: #### 7 909, 03490, 6517 #### [facility] of [address], [address] [place] [address] Turning Machine Operator: Jadon Velez MD WBC 0-5 Normal < OR = 5 [facility] Comment on above: Performed By: #### 7 909, 55156, 6517 #### [facility] of [address], [address] [place] [address] Turning Machine Operator: Jadon Velez MD Anion gap in Serum or Plasma Ordered By: Kerwin Tamayo on 02-06-2025 Anion gap [Moles/Vol] 12 mmol/L 5-15 [facility] BUN/creatinine ratioOrdered By: Kerwin Tamayo on 02-06-2025 Urea nitrogen/Creatinine [Mass ratio] 23.1 mg/mg High 10- [facility] Basic Metabolic Profile (BMP )on 02-06-2025 BUN/CRE 23.1 RATIO High - [facility] Comment on above: Performed By: #### L 100.0500, L500.2500 #### [facility] Laboratory [facility] [address] [place], [place], [address] Calcium [Mass/Vol] 9.1 mg/dL Normal 7.6-11.0 [facility] Comment on above: Performed By: #### L 100.0500, L500.2500 #### [facility] Laboratory [address] [place], [address] Chloride [Moles/Vol] 103 mmol/L Normal 98-108 [facility] Comment on above: Performed By: #### L 100.0500, L500.2500 #### [facility] Laboratory [address] [place], [address] CO2 [Moles/Vol] 23.7 mmol/L Normal 21.0-32.0 [facility] Comment on above: Performed By: #### L 100.0500, L500.2500 #### [facility] Laboratory [address] [place], [address] Creatinine [Mass/Vol] 1.88 mg/dL High 0.70-1.20 [facility] Comment on above: Performed By: #### L 100.0500, L500.2500 #### [facility] Laboratory [address] [place], [address] GAP 12 Normal 5-15 [facility] Comment on above: Performed By: #### L 100.0500, L500.2500 #### [facility] [address] [place], [address] GFR/1.73 sq M.predicted among non-blacks MDRD (S/P/Bld) [Vol rate/Area] 35 mL/min/{1.73_m2} Low >60 [facility] Comment on above: Result Comment: mL/m in/1.73m2 CKD-EPI Creatinine Equation (2020) Performed By: #### L 100.0500, L500.2500 #### [facility] [address] [place], [address] Glucose [Mass/Vol] 287 mg/dL High 70-99 [facility] Comment on above: Performed By: #### L 100.0500, L500.2500 #### [facility] Laboratory [address] [place], [address] Potassium [Moles/Vol] 4.4 mmol/L Normal 3.3-5.1 [facility] Comment on above: Performed By: #### L 100.0500, L500.2500 #### [facility] Laboratory [address] [place], [address] Sodium [Moles/Vol] 139 mmol/L Normal 133-145 [facility] Comment on above: Performed By: #### L 100.0500, L500.2500 #### [facility] Laboratory [address] [place], [address] Urea nitrogen [Mass/Vol] 44 mg/dL High 4-19 [facility] Comment on above: Performed By: #### L 100.0500, L500.2500 #### [facility] Laboratory [address] [place], [address] CBC-Complete Blood Cnt No Di ffon 02-06-2025 Erythrocyte distribution width (RBC) [Ratio] 13.0 % Normal 11.6-14.6 [facility] Comment on above: Performed By: #### L 100.0500, L500.2500 #### [facility] Laboratory [address] [place], [address] Hematocrit (Bld) [Volume fraction] 33.8 % Low 40-54 [facility] Comment on above: Performed By: #### L 100.0500, L500.2500 #### [facility] Laboratory [address] [place], [address] Hemoglobin (Bld) [Mass/Vol] 11.0 g/dL Low 13.0-16.5 [facility] Comment on above: Performed By: #### L 100.0500, L500.2500 #### [facility] Laboratory [address] [place], [address] MCH (RBC) [Entitic mass] 31.0 pg Normal 27.0-32.0 [facility] Comment on above: Performed By: #### L 100.0500, L500.2500 #### [facility] Laboratory [address] [place], [address] MCHC (RBC) [Mass/Vol] 32.5 g/dL Normal 32-36 [facility] Comment on above: Performed By: #### L 100.0500, L500.2500 #### [facility] Laboratory [address] [place], [address] MCV (RBC) [Entitic vol] 95.2 fL High 80-94 [facility] Comment on above: Performed By: #### L 100.0500, L500.2500 #### [facility] Laboratory [address] [place], [address] Platelet mean volume (Bld) [Entitic vol] 11.2 fL Normal 6.2-12.0 [facility] Comment on above: Performed By: #### L 100.0500, L500.2500 #### [facility] Laboratory [address] [place], [address] Platelets (Bld) [#/Vol] 239 10*3/uL Normal 150-450 [facility] Comment on above: Performed By: #### L 100.0500, L500.2500 #### [facility] Laboratory [address] [place], [address] RBC (Bld) [#/Vol] 3.55 10*6/uL Low 4.6-6.2 [facility] Comment on above: Performed By: #### L 100.0500, L500.2500 #### [facility] Laboratory [address] [place], [address] RDW SD 45.3 fl High 35.1-43.9 [facility] Comment on above: Performed By: #### L 100.0500, L500.2500 #### [facility] Laboratory [address] [place], [place], [address] WBC (Bld) [#/Vol] 8.9 10*3/uL Normal 4.4-11.0 [facility] Comment on above: Performed By: #### L 100.0500, L500.2500 #### [facility] Laboratory [address] [place], [address] Carbon dioxide, total [Moles /volume] in Central venous bloodOrdered By: Kerwin Tamayo on 02-06-2025 CO2 [Moles/Vol] 23.7 mmol/L 21.0-32.0 [facility] Chloride assayOrdered By: Daniela Tamayo on 02-06-2025 Chloride [Moles/Vol] 103 mmol/L 98-108 [facility] Erythrocyte distribution wid th (RBC) [Ratio]Ordered By: Kerwin Tamayo on 02-06-2025 Erythrocyte distribution width (RBC) [Entitic vol] 45.3 fL High 35.1-43.9 [facility] Erythrocyte distribution wid th ratioOrdered By: Kerwin Tamayo on 02-06-2025 Erythrocyte distribution width (RBC) [Ratio] 13.0 % 11.6-14.6 [facility] GFR/1.73 sq M.predicted park g non-blacks MDRD (S/P/Bld) [Vol rate/Area]Ordered By: Kerwin Tamayo on 02-06-2025 Estimated GFR (MDRD) Non-Af Amer 35 Low >60 [facility] Comment on above: mL/min/1.73m2 CKD-EP I Creatinine Equation (2020) Hematocrit Auto (Bld) [Volum e fraction]Ordered By: Kerwin Tamayo on 02-06-2025 Hematocrit (Bld) [Volume fraction] 33.8 % Low 40-54 [facility] Hemoglobin measurementOrdere d By: Kerwin Tamayo on 02-06-2025 Hemoglobin (Bld) [Mass/Vol] 11.0 g/dL Low 13.0-16.5 [facility] MCV (mean corpuscular volume ) determinationOrdered By: Kerwin Tamayo on 02-06-2025 MCV (RBC) [Entitic vol] 95.2 fL High 80-94 [facility] Mean corpuscular hemoglobin (MCH) determinationOrdered By: Kerwin Tamayo on 02-06-2025 MCH (RBC) [Entitic mass] 31.0 pg 27.0-32.0 [facility] Mean corpuscular hemoglobin concentration (MCHC) determinationOrdered By: Kerwin Tamayo on 02-06-2025 MCHC (RBC) [Mass/Vol] 32.5 g/dL 32-36 [facility] Mean platelet volume determi nationOrdered By: Kerwin Tamayo on 02-06-2025 Platelet mean volume (Bld) [Entitic vol] 11.2 fL 6.2-12.0 [facility] Platelet countOrdered By: Daniela Tamayo on 02-06-2025 Platelets (Bld) [#/Vol] 239 10*3/uL 150-450 [facility] Potassium (Unsp spec) [Mass/ Vol]Ordered By: Kerwin Tamayo on 02-06-2025 Potassium [Moles/Vol] 4.4 mmol/L 3.3-5.1 [facility] RBC Auto (Bld) [#/Vol]Ordere d By: Kerwin Tamayo on 02-06-2025 RBC (Bld) [#/Vol] 3.55 10*6/uL Low 4.6-6.2 [facility] Serum creatinine measurement (mass/volume)Ordered By: Kerwin Tamayo on 02-06-2025 Creatinine [Mass/Vol] 1.88 mg/dL High 0.70-1.20 [facility] Serum glucose measurement (m ass/volume)Ordered By: Kerwin Tamayo on 02-06-2025 Glucose [Mass/Vol] 287 mg/dL High 70-99 [facility] Serum or plasma calcium nikkie urement (mass/volume)Ordered By: Kerwin Tamayo on 02-06-2025 Calcium [Mass/Vol] 9.1 mg/dL 7.6-11.0 [facility] Serum or plasma urea nitroge n measurement (mass/volume)Ordered By: Kerwin Tamayo on 02-06-2025 Urea nitrogen [Mass/Vol] 44 mg/dL High 4-19 [facility] Sodium levelOrdered By: Aaron Tamayo on 02-06-2025 Sodium [Moles/Vol] 139 mmol/L 133-145 [facility] White blood cell (WBC) count Ordered By: Kerwin Tamayo on 02-06-2025 WBC (Bld) [#/Vol] 8.9 10*3/uL 4.4-11.0 [facility] CBC W Auto Differential pane l (Bld)on 11-06-2024 Basophils (Bld) [#/Vol] 0.08 x10*3/uL Normal 0.00-0.10 [facility] Comment on above: Performed By: #### 5 7021-8 #### MAGGI PARNELL ([id number]) [facility] ([facility]) [address] [place] [address] Basophils/100 WBC (Bld) 0.8 % Normal 0.0-2.0 [facility] Comment on above: Performed By: #### 5 7021-8 #### MAGGI PARNELL ([id number]) [facility] ([facility]) [address] [place] [address] 169[address] Eosinophils (Bld) [#/Vol] 0.42 x10*3/uL High 0.00-0.40 [facility] Comment on above: Performed By: #### 5 7021-8 #### MAGGI PARNELL ([id number]) [facility] ([facility]) [address] [place] [address] 82859 Eosinophils/100 WBC (Bld) 4.4 % Normal 0.0-6.0 [facility] Comment on above: Performed By: #### 5 7021-8 #### MAGGI PARNELL ([id number]) [facility] ([facility]) [address] [place] [address] 23499 Erythrocyte distribution width (RBC) [Ratio] 14.5 % Normal 11.5-14.5 [facility] Comment on above: Performed By: #### 5 7021-8 #### MAGGI PARNELL ([id number]) [facility] ([facility]) [address] [place] [address] 18462 Hematocrit (Bld) [Volume fraction] 34.5 % Low 41.0-52.0 [facility] Comment on above: Performed By: #### 5 7021-8 #### MAGGI PARNELL ([id number]) [facility] ([facility]) [address] [place] [address] 79583 Hemoglobin (Bld) [Mass/Vol] 10.6 g/dL Low 13.5-17.5 [facility] Comment on above: Performed By: #### 5 7021-8 #### MAGGI PARNELL ([id number]) [facility] ([facility]) [address] [place] [address] 56262 Immature granulocytes (Bld) [#/Vol] 0.03 x10*3/uL Normal 0.00-0.50 [facility] Comment on above: Performed By: #### 5 7021-8 #### MAGGI PARNELL ([id number]) [facility] ([facility]) [address] [place] [address] 14447 Immature granulocytes/100 WBC (Bld) 0.3 % Normal 0.0-0.9 [facility] Comment on above: Result Comment: Arielle ture Granulocyte Count (IG) includes promyelocytes, myelocytes and metamyelocytes but does not include bands. Percent differential counts (%) should be interpreted in the context of the absolute cell counts (cells/UL). Performed By: #### 5 7021-8 #### MAGGI PARNELL ([id number]) [facility] ([facility]) [address] [place] [address] 28952 Lymphocytes (Bld) [#/Vol] 2.35 x10*3/uL Normal 0.80-3.00 [facility] Comment on above: Performed By: #### 5 7021-8 #### MAGGI PARNELL ([id number]) [facility] ([facility]) [address] [place] [address] 16628 Lymphocytes/100 WBC (Bld) 24.5 % Normal 13.0-44.0 [facility] Comment on above: Performed By: #### 5 7021-8 #### MAGGI PARNELL ([id number]) [facility] ([facility]) [address] [place] [address] 19856 MCH (RBC) [Entitic mass] 30.3 pg Normal 26.0-34.0 [facility] Comment on above: Performed By: #### 5 7021-8 #### MAGGI PARNELL ([id number]) [facility] ([facility]) [address] [place] [address] 56514 MCHC (RBC) [Mass/Vol] 30.7 g/dL Low 32.0-36.0 [facility] Comment on above: Performed By: #### 5 7021-8 #### MAGGI PARNELL ([id number]) [facility] ([facility]) [address] [place] [address] 72089 MCV (RBC) [Entitic vol] 99 fL Normal 80-100 [facility] Comment on above: Performed By: #### 5 7021-8 #### MAGGI PARNELL ([id number]) [facility] ([facility]) [address] [place] [address] 98596 Monocytes (Bld) [#/Vol] 0.82 x10*3/uL High 0.05-0.80 [facility] Comment on above: Performed By: #### 5 7021-8 #### MAGGI PARNELL ([id number]) [facility] ([facility]) [address] [place] [address] 73210 Monocytes/100 WBC (Bld) 8.6 % Normal 2.0-10.0 [facility] Comment on above: Performed By: #### 5 7021-8 #### MAGGI PARNELL ([id number]) [facility] ([facility]) [address] [place] [address] 17716 Neutrophils (Bld) [#/Vol] 5.89 x10*3/uL High 1.60-5.50 [facility] Comment on above: Result Comment: Perc ent differential counts (%) should be interpreted in the context of the absolute cell counts (cells/uL). Performed By: #### 5 7021-8 #### MAGGI PARNELL ([id number]) [facility] ([facility]) [address] [place] [address] 80033 Neutrophils/100 WBC (Bld) 61.4 % Normal 40.0-80.0 [facility] Comment on above: Performed By: #### 5 7021-8 #### MAGGI PARNELL ([id number]) [facility] ([facility]) [address] [place] [address] 90520 Nucleated RBC/100 WBC (Bld) [Ratio] 0.0 /100 WBCs Normal 0.0-0.0 [facility] Comment on above: Performed By: #### 5 7021-8 #### MAGGI PARNELL ([id number]) [facility] ([facility]) [address] [place] [address] 91752 Platelets (Bld) [#/Vol] 229 x10*3/uL Normal 150-450 [facility] Comment on above: Performed By: #### 5 7021-8 #### MAGGI PARNELL ([id number]) [facility] ([facility]) [address] [place] [address] 91748 RBC (Bld) [#/Vol] 3.50 x10*6/uL Low 4.50-5.90 [facility] Comment on above: Performed By: #### 5 7021-8 #### MAGGI PARNELL ([id number]) [facility] ([facility]) [address] [place] [address] 15374 WBC (Bld) [#/Vol] 9.6 x10*3/uL Normal 4.4-11.3 [facility] Comment on above: Performed By: #### 5 7021-8 #### MAGGI PARENLL ([id number]) [facility] ([facility]) [address] [place] [address] 00047 Comprehensive metabolic 2000 panelon 11-06-2024 Albumin BCP dye [Mass/Vol] 3.7 g/dL Normal 3.4-5.0 [facility] Comment on above: Performed By: #### 1 4959-1 #### ALENA Paredes ([id number]) [facility] ([facility]) [address] [place] [address] ALP [Catalytic activity/Vol] 68 U/L Normal 33-136 [facility] Comment on above: Performed By: #### 1 4959-1 #### ALENA Paredes ([id number]) [facility] ([facility]) [address] [place] [address] ALT With P-5'-P [Catalytic activity/Vol] 19 U/L Normal 10-52 [facility] Comment on above: Result Comment: Bc ents treated with Sulfasalazine may generate falsely decreased results for ALT. Performed By: #### 1 4959-1 #### ALENA Paredes ([id number]) [facility] ([facility]) [address] [place] [address] Anion gap [Moles/Vol] 12 mmol/L Normal 10-20 [facility] Comment on above: Performed By: #### 1 4959-1 #### ALENA Paredes ([id number]) [facility] ([facility]) [address] [place] [address] AST With P-5'-P [Catalytic activity/Vol] 19 U/L Normal 9-39 [facility] Comment on above: Performed By: #### 1 4959-1 #### ALENA Paredes ([id number]) [facility] ([facility]) [address] [place] [address] Bilirubin [Mass/Vol] 0.3 mg/dL Normal 0.0-1.2 [facility] Comment on above: Performed By: #### 1 4959-1 #### ALENA CORREA L ([id number]) [facility] ([facility]) [address] [place] [address] Calcium [Mass/Vol] 8.9 mg/dL Normal 8.6-10.[address] [facility] Comment on above: Performed By: #### 1 4959-1 #### ALENA Paredes ([id number]) [facility] ([facility]) [address] [place] [address] 10632 Chloride [Moles/Vol] 108 mmol/L High 98-107 [facility] Comment on above: Performed By: #### 1 4959-1 #### ALENA Paredes ([id number]) [facility] ([facility]) [address] [place] [address] CO2 [Moles/Vol] 23 mmol/L Normal 21-32 [facility] Comment on above: Performed By: #### 1 4959-1 #### ALENA Paredes ([id number]) [facility] ([facility]) [address] [place] [address] 71119 Creatinine [Mass/Vol] 2.37 mg/dL High 0.50-1.30 [facility] Comment on above: Performed By: #### 1 4959-1 #### ALENA Paredes ([id number]) [facility] ([facility]) [address] [place] [address] 63466 Glomerular filtration rate/1.73 sq M.predicted 27 mL/min/1.73m*2 Low >60 [facility] Comment on above: Result Comment: Calc ulations of estimated GFR are performed using the 2020 CKD-EPI Study Refit equation without the race variable for the IDMS-Traceable creatinine methods. https://jasn.asnjournals.org/content//ASN.00787 51757 Performed By: #### 1 4959-1 #### ALENA Paredes ([id number]) [facility] ([facility]) [address] [place] [address] 31184 Glucose [Mass/Vol] 95 mg/dL Normal 74-[address] [facility] Comment on above: Performed By: #### 1 4959-1 #### ALENA Paredes ([id number]) [facility] ([facility]) [address] [place] [address] 21154 Potassium [Moles/Vol] 4.9 mmol/L Normal 3.5-5.3 [facility] Comment on above: Performed By: #### 1 4959-1 #### ALENA Paredes ([id number]) [facility] ([facility]) [address] [place] [address] 32530 Protein [Mass/Vol] 6.4 g/dL Normal 6.4-8.[address] [facility] Comment on above: Performed By: #### 1 4959-1 #### ALENA Paredes ([id number]) [facility] ([facility]) [address] [place] [address] 25465 Sodium [Moles/Vol] 138 mmol/L Normal 136-[address] [facility] Comment on above: Performed By: #### 1 4959-1 #### ALENA Paredes ([id number]) [facility] ([facility]) [address] [place] [address] 64714 Urea nitrogen [Mass/Vol] 48 mg/dL High 6-23 [facility] Comment on above: Performed By: #### 1 4959-1 #### ALENA Paredes ([id number]) [facility] ([facility]) [address] [place] [address] 86107 HbA1c (Bld) [Mass fraction]o n 11-06-2024 Average glucose Estimated from glycated hemoglobin (Bld) [Mass/Vol] 220 mg/dL Normal Not Established [facility] Comment on above: Order Comment: Diagn osis of Gbsysbjk-YdaggiJrz-Urnijiij: < or = 5.6%Increased risk for developing diabetes: 5.7-6.4%Diagnostic of diabetes: > or = 6.5% Performed By: #### 1 4959-1 #### ALENA Paredes ([id number]) [facility] ([facility]) [address] [place] [address] 56259 Hemoglobin A1c/Hemoglobin.to alcira 11-06-2024 HbA1c (Bld) [Mass fraction] 9.3 % High See comment [facility] Comment on above: Order Comment: Diagn osis of Xlkgproc-OhvywbHrt-Thzflrjm: < or = 5.6%Increased risk for developing diabetes: 5.7-6.4%Diagnostic of diabetes: > or = 6.5% Performed By: #### 1 4959-1 #### ALENA Paredes ([id number]) [facility] ([facility]) [address] [place] [address] 18422 Thyrotropinon 11-06-2024 TSH Qn 2.65 m[IU]/L Normal 0.44-3.98 [facility] Comment on above: Order Comment: TSH t esting is performed using different testing methodology at [facility] than at other [facility]. Direct result comparisons should only be made within the same method. Performed By: #### 1 4959-1 #### ALENA Paredes ([id number]) [facility] ([facility]) [id number] [place] [address] 61488 Thyroxine.freeon 11-06-2024 Free T4 [Mass/Vol] 0.84 ng/dL Normal 0.61-1.[address] [facility] Comment on above: Order Comment: Thyro xine Free testing is performed using different testing methodology at [facility] than at other [facility]. Direct result comparisons should only be made within the same method.Biotin can cause falsely elevated free T4 results. Patients taking a Biotin dose of up to 10 mg/day should refrain from taking Biotin for 24 hours before sample collection. Patient taking a Biotin dose of >10 mg/day should consult with their physician or the laboratory before the blood draw. 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 Performed By: #### 4 6161 #### LAB [address] [address] Moody Martinez M.D. 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 [id number] HCO3 (Bld) [Moles/Vol] 19 mmol/L Low 21-[address] 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 [id number] Anion gap [Moles/Vol] 17 mmol/L Normal 10-20 [facility] Comment on above: Order Comment: [facility] has implemented the eGFR calculation approach that does not have a coefficient for race that conforms to the NKF-ASN Task Force Recommendations. Performed By: #### 4 6124 #### LAB [address] [id number] Moody Martinez M.D. [id number] Calcium [Mass/Vol] 8.5 mg/dL Normal 8.4-10.2 [facility] Comment on above: Order Comment: [facility] has implemented the eGFR calculation approach that does not have a coefficient for race that conforms to the NKF-ASN Task Force Recommendations. Performed By: #### 4 6166 #### LAB [address] [address] Moody Martinez M.D. [id number] Chloride [Moles/Vol] 108 mmol/L Normal 98-108 [facility] Comment on above: Order Comment: [facility] has implemented the eGFR calculation approach that does not have a coefficient for race that conforms to the NKF-ASN Task Force Recommendations. Performed By: #### 4 6124 #### LAB [address] [address] Moody Martinez M.D. [id number] Creatinine [Mass/Vol] 2.44 mg/dL High 0.80-1.30 [facility] Comment on above: Order Comment: [facility] has implemented the eGFR calculation approach that does not have a coefficient for race that conforms to the NKF-ASN Task Force Recommendations. Performed By: #### 4 6124 #### LAB [address] [address] Moody Martinez M.D. [id number] EGFR 26 mL/min/1.73 m2 Low >=60 [facility] Comment on above: Order Comment: [facility] has implemented the eGFR calculation approach that does not have a coefficient for race that conforms to the NKF-ASN Task Force Recommendations. Result Comment: Albin mated GFR was calculated using the 2020 CKD-EPI creatinine equation. Performed By: #### 4 6124 #### LAB [address] [address] Moody Martinez M.D. [id number] Glucose [Mass/Vol] 107 mg/dL High 65-99 [facility] Comment on above: Order Comment: [facility] has implemented the eGFR calculation approach that does not have a coefficient for race that conforms to the NKF-ASN Task Force Recommendations. Performed By: #### 4 6124 #### LAB [address] [address] Moody Martinez M.D. [id number] HCO3 (Bld) [Moles/Vol] 18 mmol/L Low 21-[address] [facility] Comment on above: Order Comment: [facility] has implemented the eGFR calculation approach that does not have a coefficient for race that conforms to the NKF-ASN Task Force Recommendations. Performed By: #### 4 6124 #### LAB [address] [address] Moody Martinez M.D. [id number] Potassium [Moles/Vol] 4.1 mmol/L Normal 3.5-5.1 [facility] Comment on above: Order Comment: [facility] has implemented the eGFR calculation approach that does not have a coefficient for race that conforms to the NKF-ASN Task Force Recommendations. Performed By: #### 4 6124 #### LAB [address] [address] Moody Martinez M.D. [id number] Sodium [Moles/Vol] 139 mmol/L Normal 135-145 [facility] Comment on above: Order Comment: [facility] has implemented the eGFR calculation approach that does not have a coefficient for race that conforms to the NKF-ASN Task Force Recommendations. Performed By: #### 4 6124 #### LAB [address] [address] Moody Martinez M.D. [id number] Urea nitrogen [Mass/Vol] 85 mg/dL High 8- [facility] Comment on above: Order Comment: [facility] has implemented the eGFR calculation approach that does not have a coefficient for race that conforms to the NKF-ASN Task Force Recommendations. Performed By: #### 4 6139 #### LAB [address] [address] Moody Martinez M.D. [id number] Urea nitrogen/Creatinine [Mass ratio] 34.8 mg/mg High 10.0-20.0 [facility] Comment on above: Order Comment: [facility] has implemented the eGFR calculation approach that does not have a coefficient for race that conforms to the NKF-ASN Task Force Recommendations. Performed By: #### 4 6142 #### LAB [address] [address] Moody Martinez M.D. [id number] BETA-HYDROXYBUTYRATEon 10-28 BETA-HYDROXYBUTYRATE 0.1 mmol/L Normal 0.0-0.3 [facility] Comment on above: Performed By: #### 4 5139 #### LAB [address] [address] Moody Martinez M.D. [id number] BETA-HYDROXYBUTYRATE < Normal 0.0-0.3 [facility] Comment on above: Performed By: #### 4 5139 ####[facility] LAB [address] [place] [id number] Moody Martinez M.D. [id number] Basic metabolic 2000 panelon 10-28-2024 Anion gap [Moles/Vol] 16 mmol/L 10 - 20 mmol/L [facility] Calcium [Mass/Vol] 8.5 mg/dL 8.4 - 10. 2 mg/dL [facility] Chloride [Moles/Vol] 108 mmol/L 98 - 10 8 mmol/L [facility] Creatinine [Mass/Vol] 2.31 mg/dL High 0.80 - 1.30 mg/dL [facility] GFR/1.73 sq M.predicted CKD-EPI (S/P/Bld) [Vol rate/Area] 28 Low - PINF [facility] Comment on above: Estimated GFR was ca lculated using the 2020 CKD-EPI creatinine equation. Glucose [Mass/Vol] 95 mg/dL 65 - 99 mg/dL [facility] HCO3 [Moles/Vol] 19 mmol/L Low 21 - 32 mmol/L [facility] Potassium [Moles/Vol] 4.1 mmol/L 3.5 - 5.1 mmol/L [facility] Sodium [Moles/Vol] 139 mmol/L 135 - 145 mmol/L [facility] Urea nitrogen [Mass/Vol] 82 mg/dL High 8 - 25 mg/dL [facility] Urea nitrogen/Creatinine [Mass ratio] 35.5 mg/mg High 10.0 - 20.0 [facility] has implemented the eGFR calculation approach that does not have a coefficient for race that conforms to the NKF-ASN Task Force Recommendations. [facility] Anion gap [Moles/Vol] 17 mmol/L 10 - 20 mmol/L [facility] Calcium [Mass/Vol] 8.5 mg/dL 8.4 - 10. 2 mg/dL [facility] Chloride [Moles/Vol] 108 mmol/L 98 - 10 8 mmol/L [facility] Creatinine [Mass/Vol] 2.44 mg/dL High 0.80 - 1.30 mg/dL [facility] GFR/1.73 sq M.predicted CKD-EPI (S/P/Bld) [Vol rate/Area] 26 Low - PINF [facility] Comment on above: Estimated GFR was ca lculated using the 2020 CKD-EPI creatinine equation. Glucose [Mass/Vol] 107 mg/dL High 65 - 99 mg/dL [facility] HCO3 [Moles/Vol] 18 mmol/L Low 21 - 32 mmol/L [facility] Potassium [Moles/Vol] 4.1 mmol/L 3.5 - 5.1 mmol/L [facility] Sodium [Moles/Vol] 139 mmol/L 135 - 145 mmol/L [facility] Urea nitrogen [Mass/Vol] 85 mg/dL High 8 - 25 mg/dL [facility] Urea nitrogen/Creatinine [Mass ratio] 34.8 mg/mg High 10.0 - 20.0 [facility] has implemented the eGFR calculation approach that does not have a coefficient for race that conforms to the NKF-ASN Task Force Recommendations. [facility] Anion gap [Moles/Vol] 16 mmol/L 10 - 20 mmol/L [facility] Calcium [Mass/Vol] 8.3 mg/dL Low 8.4 - 10. 2 mg/dL [facility] Chloride [Moles/Vol] 103 mmol/L 98 - 10 8 mmol/L [facility] Creatinine [Mass/Vol] 2.6 mg/dL High 0.80 - 1.30 mg/dL [facility] GFR/1.73 sq M.predicted CKD-EPI (S/P/Bld) [Vol rate/Area] 24 Low - PINF [facility] Comment on above: Estimated GFR was ca lculated using the 2020 CKD-EPI creatinine equation. Glucose [Mass/Vol] 495 mg/dL Critically high 65 - 99 mg/d L [facility] HCO3 [Moles/Vol] 18 mmol/L Low 21 - 32 mmol/L [facility] Potassium [Moles/Vol] 5 mmol/L 3.5 - 5.1 mmol/L [facility] Sodium [Moles/Vol] 132 mmol/L Low 135 - 145 mmol/L [facility] Urea nitrogen [Mass/Vol] 93 mg/dL High 8 - 25 mg/dL [facility] Urea nitrogen/Creatinine [Mass ratio] 35.8 mg/mg High 10.0 - 20.0 [facility] has implemented the eGFR calculation approach that does not have a coefficient for race that conforms to the NKF-ASN Task Force Recommendations. [facility] Beta hydroxybutyrate [Moles/ Vol]on 10-28-2024 Interpretation and review of laboratory results Normal [facility] Interpretation and review of laboratory results Normal [facility] Interpretation and review of laboratory results Abnormal [facility] Beta-Hydroxybutyrateon 10-28 Beta hydroxybutyrate [Moles/Vol] 0.1 mmol/L 0.0 - 0.3 mmol/L [facility] Beta hydroxybutyrate [Moles/Vol] mmol/L 0.0 - 0.3 mmol/L [facility] Beta hydroxybutyrate [Moles/Vol] 0.4 mmol/L High 0.0 - 0.3 mmol/L [facility] CBC Auto Differentialon 10-02 Basophils (Bld) [#/Vol] 0.08 10*3/uL [facility] Basophils/100 WBC (Bld) 0.8 % [facility] Eosinophils (Bld) [#/Vol] 0.06 10*3/uL [facility] Eosinophils/100 WBC (Bld) 0.6 % [facility] Erythrocyte distribution width (RBC) [Entitic vol] 13.6 % 11.6 - 14.8 % [facility] Hematocrit (Bld) [Volume fraction] 29 % Low 41.0 - 53.0 % [facility] Hemoglobin (Bld) [Mass/Vol] 9.3 g/dL Low 13.5 - 17.5 g/dL [facility] Immature granulocytes (Bld) [#/Vol] 0.03 10*3/uL [facility] Immature granulocytes/100 WBC (Bld) 0.3 % [facility] Comment on above: The IG parameter is the percentage of metamyelocytes, myelocytes and promyelocytes. An immature granulocyte count (IG) of 1% or more suggests the possibility of infection, an IG count of 3% is very likely related to an infection. Interpretation and review of laboratory results Abnormal [facility] Lymphocytes (Bld) [#/Vol] 2.94 10*3/uL [facility] Lymphocytes/100 WBC (Bld) 28.7 % [facility] MCH (RBC) [Entitic mass] 30.3 pg 26.0 - 34.0 pg [facility] MCHC (RBC) [Mass/Vol] 32.1 g/dL 31.0 - 37.0 g/dL [facility] MCV (RBC) [Entitic vol] 94.5 fL 80.0 - 100.0 fL [facility] Monocytes (Bld) [#/Vol] 1.02 10*3/uL High [facility] Monocytes/100 WBC (Bld) 10 % [facility] Neutrophils (Bld) [#/Vol] 6.12 10*3/uL [facility] Neutrophils/100 WBC (Bld) 59.6 % [facility] Nucleated RBC (Bld) [#/Vol] 0 10*3/uL [facility] Nucleated RBC/100 WBC (Bld) [Ratio] 0 % [facility] Platelet mean volume (Bld) [Entitic vol] 10.8 fL 9.4 - 12.4 fL [facility] Platelets (Bld) [#/Vol] 188 10*3/uL [facility] RBC (Bld) [#/Vol] 3.07 10*6/uL Low [facility] WBC (Bld) [#/Vol] 10.25 10*3/uL [facility] CBC WITH AUTO DIFFERENTIALon 10-28-2024 AUTO NRBC 0.0 % [facility] Comment on above: Performed By: #### L [id number] #### LAB [address] [address] Moody Martinez M.D. [id number] AUTO NRBC ABS COUNT 0.00 K/mcL Normal 0.00-0.00 [facility] Comment on above: Performed By: #### L [id number] #### LAB [address] [place], [place] [address] Moody Martinez M.D. [id number] BASOPHILS ABSOLUTE COUNT 0.08 K/mcL Normal 0.00-0.30 [facility] Comment on above: Performed By: #### L [id number] #### LAB [address] [place], [place] [address] Moody Martinez M.D. [id number] Basophils/100 WBC (Bld) 0.8 % [facility] Comment on above: Performed By: #### L [id number] #### LAB [address] [place], [place] [address] Moody Martinez M.D. [id number] Eosinophils (Bld) [#/Vol] 0.06 10*3/uL Normal 0.00-0.50 [facility] Comment on above: Performed By: #### L [id number] #### LAB [address] [address] Moody Martinez M.D. [id number] Eosinophils/100 WBC (Bld) 0.6 % Normal [facility] Comment on above: Performed By: #### L [id number] #### LAB [address] [address] Moody Martinez M.D. [id number] Erythrocyte distribution width (RBC) [Ratio] 13.6 % Normal 11.6-14.8 [facility] Comment on above: Performed By: #### L [id number] #### LAB [address] [address] Moody Martinez M.D. [id number] Hematocrit (Bld) [Volume fraction] 29.0 % Low 41.0-53.0 [facility] Comment on above: Performed By: #### L [id number] #### LAB [address] [address] Moody Martinez M.D. [id number] Hemoglobin (Bld) [Mass/Vol] 9.3 g/dL Low 13.5-17.5 [facility] Comment on above: Performed By: #### L [id number] #### LAB [address] [place] [address] Moody Martinez M.D. [id number] IG ABSOLUTE 0.03 K/mcL Normal 0.00-0.30 [facility] Comment on above: Performed By: #### L [id number] #### LAB [address] [address] Moody Martinez M.D. [id number] IG PERCENT 0.30 % Normal [facility] Comment on above: Result Comment: The IG parameter is the percentage of metamyelocytes, myelocytes and promyelocytes. An immature granulocyte count (IG) of 1% or more suggests the possibility of infection, an IG count of 3% is very likely related to an infection. Performed By: #### L [id number] #### LAB [address] [address] Moody Martinez M.D. [id number] Lymphocytes (Bld) [#/Vol] 2.94 10*3/uL Normal 0.90-4.00 [facility] Comment on above: Performed By: #### L [id number] #### LAB [address] [address] Moody Martinez M.D. [id number] Lymphocytes/100 WBC (Bld) 28.7 % Normal [facility] Comment on above: Performed By: #### L [id number] #### LAB [address] [address] Moody Martinez M.D. [id number] MCH (RBC) [Entitic mass] 30.3 pg Normal 26.0-34.0 [facility] Comment on above: Performed By: #### L [id number] #### LAB [address] [address] Moody Martinez M.D. [id number] MCV (RBC) [Entitic vol] 94.5 fL Normal 80.0-100.0 [facility] Comment on above: Performed By: #### L [id number] #### LAB [address] [place] [address] Moody Martinez M.D. [id number] MEAN CORPUSCULAR HEMOGLOBIN CONC 32.1 g/dL Normal 31.0-37.0 [facility] Comment on above: Performed By: #### L [id number] #### LAB [address] [place] [address] Moody Martinez M.D. [id number] Monocytes (Bld) [#/Vol] 1.02 10*3/uL High 0.30-0.90 [facility] Comment on above: Performed By: #### L [id number] #### LAB [address] [place] [address] Moody Martinez M.D. [id number] Monocytes/100 WBC (Bld) 10.0 % Normal [facility] Comment on above: Performed By: #### L [id number] #### LAB [address] [address] Moody Martinez M.D. [id number] NEUTROPHILS ABSOLUTE COUNT 6.12 K/mcL Normal 1.70-7.00 [facility] Comment on above: Performed By: #### L [id number] #### LAB [address] [address] Moody Martinez M.D. [id number] Neutrophils/100 WBC (Bld) 59.6 % Normal [facility] Comment on above: Performed By: #### L [id number] #### LAB [address] [address] Moody Martinez M.D. [id number] Platelet mean volume (Bld) [Entitic vol] 10.8 fL Normal 9.4-12.4 [facility] Comment on above: Performed By: #### L [id number] #### LAB [address] [address] Moody Martinez M.D. [id number] Platelets (Bld) [#/Vol] 188 10*3/uL Normal 150-400 [facility] Comment on above: Performed By: #### L [id number] #### LAB [address] [address] Moody Martinez M.D. [id number] RBC (Bld) [#/Vol] 3.07 10*6/uL Low 4.50-5.90 [facility] Comment on above: Performed By: #### L [id number] #### [facility] LAB [address] [address] Moody Martinez M.D. [id number] WBC (Bld) [#/Vol] 10.25 10*3/uL Normal 4.50-11.00 [facility] Comment on above: Performed By: #### L [id number] #### [facility] LAB [address] [address] Moody Martinez M.D. [id number] CONSULTon 10-28-2024 CONSULT - Attestation signed by Pedro West MD at 10/29/2024 9:27 AM Patient was evaluated by Keeley Patton CNP. Patient ID: Patient Name: Enoc Fernandes Admit Date: 10/27/2024 MR #: [id number] : 1945 Current location: [facility] Physicians: Ryley Jeter MD (Family); Dr Clifford (Referring) Reason for consult: Type 1 diabetes Assessment/Plan: Dx: Type 1 diabetes, under fair control Currently taking as outpatient: Lantus insulin 12 units subcutaneous nightly Lispro insulin: 10 units at meals Current Hemoglobin A1C= Lab Results Component Value Date HGBA1C 9.9 (H) 10/27/2024 HGBA1C 9.7 (H) 10/27/2024 HGBA1C 7.7 (H) 11/27/2023 NOTES: 10/28: Patient was admitted on 10/27/2024 for hyperglycemia. He had had a planned heart catheterization earlier in the day, following the procedure he was found to be significantly hyperglycemic, further labs at 11:31AM 09/27/2024, indicated sodium 130 potassium 6.3 bicarb 17 anion gap 20 glucose 467 creatinine 2.60 GFR 24 AST 14 ALT 21 WBC 8.7 hemoglobin 11.2 hematocrit 34.8 platelets 234 TSH 0.48 Free T41.3, initial beta hydroxybutyrate 0.7. Labs repeated in the evening, around 8 PM, sodium 128 potassium 5.9 chloride 99 bicarb 15 anion gap 20 glucose 564 BUN 93 creatinine 2.55 GFR 25 AST 12 ALT 13 lactate 1.6, beta hydroxybutyrate repeated and increased to 2.3. Patient was started on an insulin drip. Vital signs stable currently. BG has improved significantly with the initiation of an insulin drip. Patient is feeling well right now. He denies any complaints currently, is hoping to eat soon. His insulin drip was stopped by the hospital medicine team. Beta hydroxybutyrate as of 8:00 this morning was 0.1. Blood Glucoses: 10/27: 279--- 467---381--->500 14L 10/28: 111 Plan: 1. Rx changes: see below Patient's insulin drip was discontinued by hospitalist team. He was given 14 units of Lantus last evening. Ordered 10 units Humalog insulin at mealtime plus insulin sensitive sliding scale for meals. Patient to continue Lantus 12 units nightly. He can call our office with any questions/concerns once he is home. He has a follow-up with our office on 11/20/2024, with Germain Ortega nurse practitioner. 2. Education: Reviewed 'ABCs' of diabetes management (respective goals in parentheses): A1C (7.0-8.0), blood pressure (<130/80), and cholesterol (LDL <100). Referral to Diabetes Education Referral to Nutrition therapy Subjective: Brief HPI: Enoc Fernandes is a 78 y.o. male patient of Ryley Jeter MD with history of coronary artery disease, type 1 diabetes, diastolic CHF, hypertension dyslipidemia COPD and lumbar spinal stenosis with chronic low back pain presented to [facility] on 10/27/2024 for an elective left heart cath following which patient was noted to have hyperglycemia and hyperkalemia. Specialist team was called for admission. Patient denies any complaints this afternoon other than his ongoing chronic low back pain. Patient denies any abdominal pain nausea or vomiting. Patient denies any chest pain or shortness of. Patient denies any blood in his urine or stool. Patient denies any syncope or dizziness Patient has had type 1 diabetes diabetes for 35 years. Diagnosed in 1994. Patient is managed by [facility] endocrinology for his type 1 diabetes. He is currently taking Admelog insulin: 10 units at mealtime Lantus insulin: 12 units at bedtime Current monitoring regimen: home blood tests - 3 times daily Complications of diabetes include: Retinopathy: Negative Nephropathy: Positive Peripheral Neuropathy: Positive Autonomic Neuropathy: Negative Allergies: Allergies Allergen Reactions [id number]-Hpb Reductase Inhibitors Muscle cramps Home Medications: Outpatient Medications Marked as Taking for the 10/27/24 encounter (Hospital Encounter): amLODIPine (NORVASC) 10 MG tablet, Take 1 (one) tablet (10 mg total) by mouth daily . aspirin 81 MG EC tablet, Take 1 (one) tablet (81 mg total) by mouth daily . furosemide (LASIX) 40 MG tablet, Take 1 (one) tablet (40 mg total) by mouth 2 (two) times a day . hydrALAZINE (APRESOLINE) 50 MG tablet, Take 1 (one) tablet (50 mg total) by mouth 2 (two) times a day . insulin glargine (Lantus Solostar U-100 Insulin) 100 unit/mL (3 mL) InPn, Inject 14 (fourteen) Units to 18 (eighteen) Units under the skin nightly . insulin lispro 100 unit/mL InPn, Use as directed 8 units before breakfast, 9 units before lunch, 8 units before dinner . isosorbide mononitrate (IMDUR) 30 MG 24 hr tablet, Take 1 (one) tablet (30 mg total) by mouth daily . Klor-Con M20 20 mEq tablet, Take 1 (one) tablet (20 mEq total) by mouth 2 (two) times a day . lisinopriL (PRINIVIL,ZESTRIL) 5 MG table (more content not included)... Normal [facility] Glucose (Bld) [Mass/Vol]on 12-29-2023 Glucose [Mass/Vol] 321 mg/dL High 65 - 99 [facility] Interpretation and review of laboratory results Abnormal [facility] Glucose [Mass/Vol] 288 mg/dL High 65 - 99 mg/dL [facility] Interpretation and review of laboratory results Abnormal [facility] Glucose [Mass/Vol] 130 mg/dL High 65 - 99 mg/dL [facility] [place] Interpretation and review of laboratory results Abnormal [facility] Glucose [Mass/Vol] 55 mg/dL Critically low 65 - 99 mg/dL [facility] Interpretation and review of laboratory results Abnormal [facility] Critical result acte d upon time of test. Test performed at bedside. [facility] Glucose [Mass/Vol] 85 mg/dL 65 - 99 mg/[facility] and [facility] of laboratory results Normal [facility] Glucose [Mass/Vol] 111 mg/dL High 65 - 99 mg/dL [facility] Interpretation and review of laboratory results Abnormal [facility] Glucose [Mass/Vol] 69 mg/dL 65 - 99 mg/dL [facility] and review of laboratory results Normal [facility] Glucose [Mass/Vol] 76 mg/dL 65 - 99 mg/dL [facility] Interpretation and review of laboratory results Normal [facility] Glucose [Mass/Vol] 94 mg/dL 65 - 99 mg/dL [facility] Interpretation and review of laboratory results Normal [facility] Glucose [Mass/Vol] 115 mg/dL High 65 - 99 mg/dL [facility] Interpretation and review of laboratory results Abnormal [facility] Glucose [Mass/Vol] 168 mg/dL High 65 - 99 mg/dL [facility]ation and review of laboratory results Abnormal [facility] Glucose [Mass/Vol] 215 mg/dL High 65 - 99 mg/dL [facility] Interpretation and review of laboratory results Abnormal [facility] Glucose [Mass/Vol] 336 mg/dL High 65 - 99 mg/dL [facility] Interpretation and review of laboratory results Abnormal [facility] Glucose [Mass/Vol] 443 mg/dL Critically high 65 - 99 mg/d L [facility] Interpretation and review of laboratory results Abnormal [facility] Critical result acte d upon time of test. Test performed at bedside. [facility] HbA1c (Bld) [Mass fraction]o n 10-28-2024 Average glucose Estimated from glycated hemoglobin (Bld) [Mass/Vol] 237 mg/dL High 74 - 114 mg/dL [facility] Interpretation and review of laboratory results Abnormal [facility] Hemoglobin A1con 10-28-2024 HbA1c (Bld) [Mass fraction] 9.9 % High 4.2 - 5.6 % [facility] MAGNESIUM LEVELon 10-28-2024 Magnesium [Mass/Vol] 2.6 mg/dL High 1.6-2.4 [facility] Comment on above: Performed By: #### 4 6936 #### [facility] [address] [place], [place] [address] Moody Martinez M.D. [id number] Magnesium [Mass/Vol] 2.6 mg/dL High 1.6-2.4 [facility] Comment on above: Performed By: #### 4 [id number] #### [facility] [address] [place], [place] [address] Moody Martinez M.D. [id number] Magnesium Levelon 10-28-2024 Magnesium [Mass/Vol] 2.6 mg/dL High 1.6 - 2 .4 mg/dL [facility] Magnesium [Mass/Vol] 2.6 mg/dL High 1.6 - 2 .4 mg/dL [facility] Magnesium [Mass/Vol] 2.6 mg/dL High 1.6 - 2 .4 mg/dL [facility] No Panel Informationon 10-28 Interpretation and review of laboratory results Abnormal [facility] Interpretation and review of laboratory results Abnormal [facility] Interpretation and review of laboratory results Abnormal [facility] PHOSPHORUSon 10-28-2024 Phosphate [Mass/Vol] 4.7 mg/dL High 2.3-3.7 [facility] Comment on above: Performed By: #### 4 [id number] ####[facility] [address] [place], [place] [address] Moody Martinez M.D. [id number] POC GLUCOSE [facility] 024 Glucose [Mass/Vol] 321 mg/dL High [address] [place] [address] Comment on above: Performed By: #### L [id number] #### [facility] [address] [place], [place] [address] Moody Martinez M.D. [id number] Glucose [Mass/Vol] 288 mg/dL High [address] [place] [address] Comment on above: Performed By: #### 4 6932 ####[facility] [address] [place], [place] [address] Moody Martinez M.D. [id number] Glucose [Mass/Vol] 130 mg/dL High [address] [place] [address] Comment on above: Performed By: #### 4 6932 ####[facility] [address] [place] [address] Moody Martinez M.D. [id number] Glucose [Mass/Vol] 55 mg/dL Off scale low [address] [place] [address] Comment on above: Order Comment: Criti christian result acted upon time of test. Test performed at bedside. Performed By: #### 4 6932 ####[facility] [address] [place] [address] Moody Mratinez M.D. [id number] Glucose [Mass/Vol] 85 mg/dL Normal [address] [place] [address] Comment on above: Performed By: #### 4 6932 ####[facility] [address] [place] [address] Moody Martinez M.D. [id number] Glucose [Mass/Vol] 111 mg/dL High [address] [place] [address] Comment on above: Performed By: #### L [id number] #### [facility] [address] [place] [address] Moody Martinez M.D. [id number] Glucose [Mass/Vol] 69 mg/dL Normal [address] [place] [address] Comment on above: Performed By: #### 4 6932 ####[facility] [address] [place] [address] Moody Martinez M.D. [id number] Glucose [Mass/Vol] 76 mg/dL Normal [address] [place] [address] Comment on above: Performed By: #### 4 6932 #### LAB [address] [place] [address] Moody Martinez M.D. [id number] Glucose [Mass/Vol] 94 mg/dL Normal [address] [place] [address] Comment on above: Performed By: #### 4 6932 #### LAB [address] [place] [address] Moody Martinez M.D. [id number] Glucose [Mass/Vol] 115 mg/dL High [address] [place] [address] Comment on above: Performed By: #### 4 6932 ####[facility] [address] [place], [place] [address] Moody Martinez M.D. [id number] Glucose [Mass/Vol] 168 mg/dL High [address] [place] [address] Comment on above: Performed By: #### L [id number] #### [facility] [address] [place] [id number] Moody aMrtinez M.D. [id number] Glucose [Mass/Vol] 215 mg/dL High [address] [place] [address] Comment on above: Performed By: #### 4 6932 ####[facility] [address] [place] [address] Moody Martinez M.D. [id number] Glucose [Mass/Vol] 336 mg/dL High [address] [place] [address] Comment on above: Performed By: #### 4 6932 #### LAB [address] [place] [address] Moody Martinez M.D. [id number] Phosphoruson 10-28-2024 Phosphate [Mass/Vol] 4.7 mg/dL High 2.3 - 3 .7 mg/dL [facility] Phosphate [Mass/Vol] 4.4 mg/dL High 2.3 - 3 .7 mg/dL [facility] ABOR VERIFICATIONon 024 ABO and Rh group Nom (Bld) Blood group A Rh(D) positive Normal [facility] ABO and Rh group Nom (d) ABO/Rh Verification Normal [facility] Comment on above: Result Comment: Bc ent's ABO/Rh is verified. ABOR Verificationon 024 ABO and Rh group Nom (Bld) Blood group A Rh(D) positive [facility] ABO and Rh group Nom (Bld) ABO/Rh Verification [facility] Comment on above: Patient's ABO/Rh is verified. [facility] AMYLASEon 10-27-2024 Amylase [Catalytic activity/Vol] 26.8 U/L Normal 13.0-53.0 [facility] Comment on above: Performed By: #### 4 6932 #### [facility] [address] [place] [address] Moody Martinez M.D. [id number] APTTon 10-27-2024 aPTT Coag (Bld) [Time] 74 s High [facility] aPTT Coag (Bld) [Time] 74 s High 23-[address] [facility] Comment on above: Order Comment: Gerson ortegautic range for APTT's is 68 - 104 seconds Performed By: #### 4 5113 #### LAB [address] [place], [place] [address] Moody Martinez M.D. [id number] Amylaseon 10-27-2024 Amylase.pancreatic [Catalytic activity/Vol] 26.8 U/L 13.0 - 53.0 U/L [facility] BASIC METABOLIC PANELon 10-02 Anion gap [Moles/Vol] 16 mmol/L Normal 10-20 [facility] Comment on above: Order Comment: [facility] has implemented the eGFR calculation approach that does not have a coefficient for race that conforms to the NKF-ASN Task Force Recommendations. Performed By: #### 4 6932 #### LAB [address] [place] [address] Moody Martinez M.D. [id number] Calcium [Mass/Vol] 8.3 mg/dL Low 8.4-10.2 [facility] Comment on above: Order Comment: [facility] has implemented the eGFR calculation approach that does not have a coefficient for race that conforms to the NKF-ASN Task Force Recommendations. Performed By: #### 4 6932 #### LAB [address] [place] [address] Moody Martinez M.D. [id number] Chloride [Moles/Vol] 103 mmol/L Normal 98-108 [facility] Comment on above: Order Comment: [facility] has implemented the eGFR calculation approach that does not have a coefficient for race that conforms to the NKF-ASN Task Force Recommendations. Performed By: #### 4 6932 #### LAB [address] [place], [place] [address] Moody Martinez M.D. [id number] Creatinine [Mass/Vol] 2.60 mg/dL High 0.80-1.30 [facility] Comment on above: Order Comment: [facility] has implemented the eGFR calculation approach that does not have a coefficient for race that conforms to the NKF-ASN Task Force Recommendations. Performed By: #### 4 6903 #### LAB [address] [place], [place] [address] Moody Martinez M.D. [id number] EGFR 24 mL/min/1.73 m2 Low >=60 [facility] Comment on above: Order Comment: [facility] has implemented the eGFR calculation approach that does not have a coefficient for race that conforms to the NKF-ASN Task Force Recommendations. Result Comment: Albin mated GFR was calculated using the 2020 CKD-EPI creatinine equation. Performed By: #### 4 6940 #### [facility] [address] [place] [address] Moody Martinez M.D. [id number] Glucose [Mass/Vol] 495 mg/dL Off scale high 65-[address] [facility] Comment on above: Order Comment: [facility] has implemented the eGFR calculation approach that does not have a coefficient for race that conforms to the NKF-ASN Task Force Recommendations. Performed By: #### 4 6909 #### [facility] [address] [place] [address] Moody Martinez M.D. [id number] HCO3 (Bld) [Moles/Vol] 18 mmol/L Low 21-[address] [facility] Comment on above: Order Comment: [facility] has implemented the eGFR calculation approach that does not have a coefficient for race that conforms to the NKF-ASN Task Force Recommendations. Performed By: #### 4 6989 #### [facility] [address] [place], [place] [address] Moody Martinez M.D. [id number] Potassium [Moles/Vol] 5.0 mmol/L Normal 3.5-5.1 [facility] Comment on above: Order Comment: [facility] has implemented the eGFR calculation approach that does not have a coefficient for race that conforms to the NKF-ASN Task Force Recommendations. Performed By: #### 4 7222 #### LAB [address] [place] [address] Moody Martinez M.D. [id number] Sodium [Moles/Vol] 132 mmol/L Low 135-145 [facility] Comment on above: Order Comment: [facility] has implemented the eGFR calculation approach that does not have a coefficient for race that conforms to the NKF-ASN Task Force Recommendations. Performed By: #### 4 6932 #### LAB [address] [place] [address] Moody Martinez M.D. [id number] Urea nitrogen [Mass/Vol] 93 mg/dL High 8-25 [facility] Comment on above: Order Comment: [facility] has implemented the eGFR calculation approach that does not have a coefficient for race that conforms to the NKF-ASN Task Force Recommendations. Performed By: #### 4 6932 #### LAB [address] [place] [address] Moody Martinez M.D. [id number] Urea nitrogen/Creatinine [Mass ratio] 35.8 mg/mg High 10.0-20.0 [facility] Comment on above: Order Comment: [facility] has implemented the eGFR calculation approach that does not have a coefficient for race that conforms to the NKF-ASN Task Force Recommendations. Performed By: #### 4 6932 #### LAB [address] [place] [address] Moody Martinez M.D. [id number] BETA-HYDROXYBUTYRATEon 10-27 BETA-HYDROXYBUTYRATE 0.4 mmol/L High 0.0-0.3 [facility] Comment on above: Performed By: #### 4 5139 ####[facility] [address] [place] [address] Moody Martinez M.D. [id number] BETA-HYDROXYBUTYRATE 2.3 mmol/L High 0.0-0.3 [facility] Comment on above: Performed By: #### 4 5139 #### LAB [address] [place] [address] Moody Martinez M.D. [id number] BETA-HYDROXYBUTYRATE 0.7 mmol/L High 0.0-0.3 [facility] Comment on above: Performed By: #### 4 6932 #### [facility] [address] [place], [place] [address] Moody Martinez M.D. [id number] BILIRUBIN, DIRECTon 10-27-20 BILIRUBIN, DIRECT < Normal 0.0-0.4 [facility] Comment on above: Performed By: #### 4 5145 #### LAB [address] [place], [place] [address] Moody Martinez M.D. [id number] Beta hydroxybutyrate [Moles/ Vol]on 10-27-2024 Interpretation and review of laboratory results Abnormal [facility] Interpretation and review of laboratory results Abnormal [facility] Beta-Hydroxybutyrateon 10-27 Beta hydroxybutyrate [Moles/Vol] 2.3 mmol/L High 0.0 - 0.3 mmol/L [facility] Beta hydroxybutyrate [Moles/Vol] 0.7 mmol/L High 0.0 - 0.3 mmol/L [facility] Bilirubin.direct [Mass/Vol]o n 10-27-2024 Bilirubin.conjugated [Mass/Vol] mg/dL 0.0 - 0.4 mg/dL [facility] Interpretation and review of laboratory results Normal [facility] Blood type and Indirect anti body screen panel (Bld)on 10-27-2024 ABO and Rh group Nom (Bld) Blood group A Rh(D) positive [facility] Blood group antibody screen Ql Negative [facility] Specimen Expires 10/30/2024 23:59 EST [facility] CBC Auto Differentialon 10-02 Basophils (Bld) [#/Vol] 0.04 10*3/uL [facility] Basophils/100 WBC (Bld) 0.5 % [facility] Eosinophils (Bld) [#/Vol] 0 10*3/uL [facility] Eosinophils/100 WBC (Bld) 0 % [facility] Erythrocyte distribution width (RBC) [Entitic vol] 13.7 % 11.6 - 14.8 % [facility] Hematocrit (Bld) [Volume fraction] 34.8 % Low 41.0 - 53.0 % [facility] Hemoglobin (Bld) [Mass/Vol] 11.2 g/dL Low 13.5 - 17.5 g/dL [facility] Immature granulocytes (Bld) [#/Vol] 0.04 10*3/uL [facility] Immature granulocytes/100 WBC (Bld) 0.5 % [facility] Comment on above: The IG parameter is the percentage of metamyelocytes, myelocytes and promyelocytes. An immature granulocyte count (IG) of 1% or more suggests the possibility of infection, an IG count of 3% is very likely related to an infection. Interpretation and review of laboratory results Abnormal [facility] Lymphocytes (Bld) [#/Vol] 1.2 10*3/uL [facility] Lymphocytes/100 WBC (Bld) 13.8 % [facility] MCH (RBC) [Entitic mass] 30 pg 26.0 - 34.0 pg [facility] MCHC (RBC) [Mass/Vol] 32.2 g/dL 31.0 - 37.0 g/dL [facility] MCV (RBC) [Entitic vol] 93.3 fL 80.0 - 100.0 fL [facility] Monocytes (Bld) [#/Vol] 0.11 10*3/uL Low [facility] Monocytes/100 WBC (Bld) 1.3 % [facility] Neutrophils (Bld) [#/Vol] 7.32 10*3/uL High [facility] Neutrophils/100 WBC (Bld) 83.9 % [facility] Nucleated RBC (Bld) [#/Vol] 0 10*3/uL [facility] Nucleated RBC/100 WBC (Bld) [Ratio] 0 % [facility] Platelet mean volume (Bld) [Entitic vol] 11.2 fL 9.4 - 12.4 fL [facility] Platelets (Bld) [#/Vol] 234 10*3/uL [facility] RBC (Bld) [#/Vol] 3.73 10*6/uL Low [facility] WBC (Bld) [#/Vol] 8.71 10*3/uL [facility] CBC WITH AUTO DIFFERENTIALon 10-27-2024 AUTO NRBC 0.0 % Normal [facility] Comment on above: Performed By: #### L [id number] ####[facility] [address] [place], [place] [address] Moody Martinez M.D. [id number] AUTO NRBC ABS COUNT 0.00 K/mcL Normal 0.00-0.00 [facility] Comment on above: Performed By: #### L [id number] #### LAB [address] [place] [address] Moody Martinez M.D. [id number] BASOPHILS ABSOLUTE COUNT 0.04 K/mcL Normal 0.00-0.30 [facility] Comment on above: Performed By: #### L [id number] #### LAB [address] [place] [address] Moody Martinez M.D. [id number] Basophils/100 WBC (Bld) 0.5 % Normal [facility] Comment on above: Performed By: #### L [id number] #### LAB [address] [place] [address] Moody Martinez M.D. [id number] Eosinophils (Bld) [#/Vol] 0.00 10*3/uL Normal 0.00-0.50 [facility] Comment on above: Performed By: #### L [id number] #### LAB [address] [place] [address] Moody Martinez M.D. [id number] Eosinophils/100 WBC (Bld) 0.0 % Normal [facility] Comment on above: Performed By: #### L [id number] #### LAB [address] [place] [address] Moody Martinez M.D. [id number] Erythrocyte distribution width (RBC) [Ratio] 13.7 % Normal 11.6-14.8 [facility] Comment on above: Performed By: #### L [id number] #### LAB [address] [place] [address] Moody Martinez M.D. [id number] Hematocrit (Bld) [Volume fraction] 34.8 % Low 41.0-53.0 [facility] Comment on above: Performed By: #### L [id number] #### LAB [address] [place] [address] Moody Martinez M.D. [id number] Hemoglobin (Bld) [Mass/Vol] 11.2 g/dL Low 13.5-17.5 [facility] Comment on above: Performed By: #### L [id number] #### LAB [address] [place] [address] Moody Martinez M.D. [id number] IG ABSOLUTE 0.04 K/mcL Normal 0.00-0.30 [facility] Comment on above: Performed By: #### L [id number] #### LAB [address] [place] [address] Moody Martinez M.D. [id number] IG PERCENT 0.50 % Normal [facility] Comment on above: Result Comment: The IG parameter is the percentage of metamyelocytes, myelocytes and promyelocytes. An immature granulocyte count (IG) of 1% or more suggests the possibility of infection, an IG count of 3% is very likely related to an infection. Performed By: #### L [id number] #### LAB [address] [place] [address] Moody Martinez M.D. [id number] Lymphocytes (Bld) [#/Vol] 1.20 10*3/uL Normal 0.90-4.00 [facility] Comment on above: Performed By: #### L [id number] #### LAB [address] [place] [address] Moody Martinez M.D. [id number] Lymphocytes/100 WBC (Bld) 13.8 % Normal [facility] Comment on above: Performed By: #### L [id number] #### LAB [address] [place] [address] Moody Martinez M.D. [id number] MCH (RBC) [Entitic mass] 30.0 pg Normal 26.0-34.0 [facility] Comment on above: Performed By: #### L [id number] #### LAB [address] [place] [address] Moody Martinez M.D. [id number] MCV (RBC) [Entitic vol] 93.3 fL Normal 80.0-100.0 [facility] Comment on above: Performed By: #### L [id number] #### LAB [address] [place] [address] Moody Martinez M.D. [id number] MEAN CORPUSCULAR HEMOGLOBIN CONC 32.2 g/dL Normal 31.0-37.0 [facility] Comment on above: Performed By: #### L [id number] #### LAB [address] [place] [address] Moody Martinez M.D. [id number] Monocytes (Bld) [#/Vol] 0.11 10*3/uL Low 0.30-0.90 [facility] Comment on above: Performed By: #### L [id number] #### LAB [address] [place] [address] Moody Martinez M.D. [id number] Monocytes/100 WBC (Bld) 1.3 % Normal [facility] Comment on above: Performed By: #### L [id number] #### LAB [address] [place] [address] Moody Martinez M.D. [id number] NEUTROPHILS ABSOLUTE COUNT 7.32 K/mcL High 1.70-7.00 [facility] Comment on above: Performed By: #### L [id number] #### LAB [address] [place] [address] Moody Martinez M.D. [id number] Neutrophils/100 WBC (Bld) 83.9 % Normal [facility] Comment on above: Performed By: #### L [id number] #### LAB [address] [place] [address] Moody Martinez M.D. [id number] Platelet mean volume (Bld) [Entitic vol] 11.2 fL Normal 9.4-12.4 [facility] Comment on above: Performed By: #### L [id number] #### LAB [address] [place] [address] Moody Martinez M.D. [id number] Platelets (Bld) [#/Vol] 234 10*3/uL Normal 150-400 [facility] Comment on above: Performed By: #### L [id number] #### LAB [address] [place] [address] Moody Martinez M.D. [id number] RBC (Bld) [#/Vol] 3.73 10*6/uL Low 4.50-5.90 [facility] Comment on above: Performed By: #### L [id number] #### LAB [address] [place] [address] Moody Martinez M.D. [id number] WBC (Bld) [#/Vol] 8.71 10*3/uL Normal 4.50-11.00 [facility] Comment on above: Performed By: #### L [id number] #### LAB [address] [place] [address] Moody Martinez M.D. [id number] CITRATED TEG (CARDIAC) WITH HEPARINASE PANEL [facility] 10-27-2024 (CFF-FLEV) CITRATED FUNCTIONAL FIBRINOGEN -EST. FUNCTIONAL FIBRINOGEN LEVEL 381.4 mg/dL Normal 278.0-581.0 [facility] Comment on above: Performed By: #### L [id number] #### LAB [address] [place] [address] Moody Martinez M.D. [id number] (CFF-MA) CITRATED FUNCTIONAL FIBRINOGEN - [place] 20.9 mm Normal 15.0-32.0 [facility] Comment on above: Performed By: #### L [id number] #### LAB [address] [place] [address] Moody Martinez M.D. [id number] (CK-ANGLE) CITRATED KAOLIN-ALPHA ANGLE 73.2 deg Normal 63.0-78.0 [facility] Comment on above: Performed By: #### L [id number] #### LAB [address] [place] [address] Moody Martinez M.D. [id number] (CK-K) CITRATED KAOLIN-SPEED OF CLOT FORMATION 1.3 min Normal 0.8-2.1 [facility] Comment on above: Performed By: #### L [id number] ####[facility] [address] [place] [address] Moody Martinez M.D. [id number] (CK-MA) CITRATED KAOLIN-MAXIMUM CLOT STRENGTH 50.9 mm Low 52.0-69.0 [facility] Comment on above: Performed By: #### L [id number] ####[facility] [address] [place] [address] Moody Martinez M.D. [id number] (CK-R) CITRATED KAOLIN - REACTION TIME 16.4 min High 4.6-9.1 [facility] Comment on above: Performed By: #### L [id number] ####[facility] [address] [place] [address] Moody Martinez M.D. [id number] (CKH-R) CITRATED KAOLIN WITH HEPARINASE-REACTION TIME 7.6 min Normal 4.3-8.3 [facility] Comment on above: Performed By: #### L [id number] ####[facility] [address] [place] [address] Moody Martinez M.D. [id number] (CVOR NURSE-MA) CITRATED RAPID TEG - [place] 62.3 mm Normal 52.0-70.0 [facility] Comment on above: Performed By: #### L [id number] #### LAB [address] [place] [address] Moody Martinez M.D. [id number] COMPREHENSIVE METABOLIC PANE Jame 10-27-2024 Albumin [Mass/Vol] 3.4 g/dL Normal 3.2-5.2 [facility] Comment on above: Order Comment: [facility] has implemented the eGFR calculation approach that does not have a coefficient for race that conforms to the NKF-ASN Task Force Recommendations. Performed By: #### 4 6126 ####[facility] [address] [place] [address] Moody Martinez M.D. [id number] ALP [Catalytic activity/Vol] 86 U/L Normal 40-150 [facility] Comment on above: Order Comment: [facility] has implemented the eGFR calculation approach that does not have a coefficient for race that conforms to the NKF-ASN Task Force Recommendations. Performed By: #### 4 [id number] #### LAB [address] [place] [address] Moody Martinez M.D. [id number] ALT [Catalytic activity/Vol] 13 U/L Normal 0-50 U/L [facility] Comment on above: Order Comment: [facility] has implemented the eGFR calculation approach that does not have a coefficient for race that conforms to the NKF-ASN Task Force Recommendations. Performed By: #### 4 6126 #### LAB [address] [address] Moody Martinez M.D. [id number] Anion gap [Moles/Vol] 20 mmol/L Normal 10-20 [facility] Comment on above: Order Comment: [facility] has implemented the eGFR calculation approach that does not have a coefficient for race that conforms to the NKF-ASN Task Force Recommendations. Performed By: #### 4 6126 #### LAB [address] [address] Moody Martinez M.D. [id number] AST [Catalytic activity/Vol] 12 U/L Normal 0-50 U/L [facility] Comment on above: Order Comment: [facility] has implemented the eGFR calculation approach that does not have a coefficient for race that conforms to the NKF-ASN Task Force Recommendations. Performed By: #### 4 6126 #### LAB [address] [address] Moody Martinez M.D. [id number] Bilirubin [Mass/Vol] 0.3 mg/dL Normal 0.0-1.3 [facility] Comment on above: Order Comment: [facility] has implemented the eGFR calculation approach that does not have a coefficient for race that conforms to the NKF-ASN Task Force Recommendations. Performed By: #### 4 6126 #### LAB [address] [place], [place] [address] Moody Martinez M.D. [id number] Calcium [Mass/Vol] 8.4 mg/dL Normal 8.4-10.2 [facility] Comment on above: Order Comment: [facility] has implemented the eGFR calculation approach that does not have a coefficient for race that conforms to the NKF-ASN Task Force Recommendations. Performed By: #### 4 6126 #### LAB [address] [address] Moody Martinez M.D. [id number] Chloride [Moles/Vol] 99 mmol/L Normal 98-108 [facility] Comment on above: Order Comment: [facility] has implemented the eGFR calculation approach that does not have a coefficient for race that conforms to the NKF-ASN Task Force Recommendations. Performed By: #### 4 6126 #### LAB [address] [address] Moody Martinez M.D. [id number] Creatinine [Mass/Vol] 2.55 mg/dL High 0.80-1.30 [facility] Comment on above: Order Comment: [facility] has implemented the eGFR calculation approach that does not have a coefficient for race that conforms to the NKF-ASN Task Force Recommendations. Performed By: #### 4 6126 #### LAB [address] [address] Moody Martinez M.D. [id number] EGFR 25 mL/min/1.73 m2 Low >=60 [facility] Comment on above: Order Comment: [facility] has implemented the eGFR calculation approach that does not have a coefficient for race that conforms to the NKF-ASN Task Force Recommendations. Result Comment: Albin mated GFR was calculated using the 2020 CKD-EPI creatinine equation. Performed By: #### 4 6126 #### LAB [address] [address] Moody Martinez M.D. [id number] Glucose [Mass/Vol] 564 mg/dL Off scale high 65-[address] [facility] Comment on above: Order Comment: [facility] has implemented the eGFR calculation approach that does not have a coefficient for race that conforms to the NKF-ASN Task Force Recommendations. Performed By: #### 4 6126 #### LAB [address] [address] Moody Martinez M.D. [id number] HCO3 (Bld) [Moles/Vol] 15 mmol/L Low 21-[address] [facility] Comment on above: Order Comment: [facility] has implemented the eGFR calculation approach that does not have a coefficient for race that conforms to the NKF-ASN Task Force Recommendations. Performed By: #### 4 6126 #### LAB [address] [place] [address] Moody Martinez M.D. [id number] Potassium [Moles/Vol] 5.9 mmol/L High 3.5-5.1 [facility] Comment on above: Order Comment: [facility] has implemented the eGFR calculation approach that does not have a coefficient for race that conforms to the NKF-ASN Task Force Recommendations. Performed By: #### 4 6126 #### LAB [address] [place] [address] Moody Martinez M.D. [id number] Protein [Mass/Vol] 5.8 g/dL Low 6.0-8.0 [facility] Comment on above: Order Comment: [facility] has implemented the eGFR calculation approach that does not have a coefficient for race that conforms to the NKF-ASN Task Force Recommendations. Performed By: #### 4 6126 #### LAB [address] [address] Moody Martinez M.D. [id number] Sodium [Moles/Vol] 128 mmol/L Low 135-145 [facility] Comment on above: Order Comment: [facility] has implemented the eGFR calculation approach that does not have a coefficient for race that conforms to the NKF-ASN Task Force Recommendations. Performed By: #### 4 6126 #### LAB [address] [place] [id number] Moody Martinez M.D. [id number] Urea nitrogen [Mass/Vol] 93 mg/dL High 8-25 [facility] Comment on above: Order Comment: [facility] has implemented the eGFR calculation approach that does not have a coefficient for race that conforms to the NKF-ASN Task Force Recommendations. Performed By: #### 4 6126 #### LAB [address] [place] [address] Moody Martinez M.D. [id number] Urea nitrogen/Creatinine [Mass ratio] 36.5 mg/mg High 10.0-20.0 [facility] Comment on above: Order Comment: [facility] has implemented the eGFR calculation approach that does not have a coefficient for race that conforms to the NKF-ASN Task Force Recommendations. Performed By: #### 4 6126 #### LAB [address] [place] [address] Moody Martinez M.D. [id number] Albumin [Mass/Vol] 3.5 g/dL Normal 3.2-5.2 [facility] Comment on above: Order Comment: [facility] has implemented the eGFR calculation approach that does not have a coefficient for race that conforms to the NKF-ASN Task Force Recommendations. Performed By: #### 4 6126 #### LAB [address] [place] [address] Moody Martinez M.D. [id number] ALP [Catalytic activity/Vol] 92 U/L Normal 40-150 [facility] Comment on above: Order Comment: [facility] has implemented the eGFR calculation approach that does not have a coefficient for race that conforms to the NKF-ASN Task Force Recommendations. Performed By: #### 4 6126 #### LAB [address] [place] [address] Moody Martinez M.D. [id number] ALT [Catalytic activity/Vol] 21 U/L Normal 0-50 U/L [facility] Comment on above: Order Comment: [facility] has implemented the eGFR calculation approach that does not have a coefficient for race that conforms to the NKF-ASN Task Force Recommendations. Performed By: #### 4 6126 #### LAB [address] [place] [address] Moody Martinez M.D. [id number] Anion gap [Moles/Vol] 20 mmol/L Normal 10-20 [facility] Comment on above: Order Comment: [facility] has implemented the eGFR calculation approach that does not have a coefficient for race that conforms to the NKF-ASN Task Force Recommendations. Performed By: #### 4 6126 #### LAB [address] [place] [address] Moody Martinez M.D. [id number] AST [Catalytic activity/Vol] 14 U/L Normal 0-50 U/L [facility] Comment on above: Order Comment: [facility] has implemented the eGFR calculation approach that does not have a coefficient for race that conforms to the NKF-ASN Task Force Recommendations. Performed By: #### 4 6126 #### LAB [address] [place] [address] Moody Martinez M.D. [id number] Bilirubin [Mass/Vol] 0.3 mg/dL Normal 0.0-1.3 [facility] Comment on above: Order Comment: [facility] has implemented the eGFR calculation approach that does not have a coefficient for race that conforms to the NKF-ASN Task Force Recommendations. Performed By: #### 4 6126 #### LAB [address] [address] Moody Martinez M.D. [id number] Calcium [Mass/Vol] 8.7 mg/dL Normal 8.4-10.2 [facility] Comment on above: Order Comment: [facility] has implemented the eGFR calculation approach that does not have a coefficient for race that conforms to the NKF-ASN Task Force Recommendations. Performed By: #### 4 6126 #### LAB [address] [place] [address] Moody Martinez M.D. [id number] Chloride [Moles/Vol] 99 mmol/L Normal 98-108 [facility] Comment on above: Order Comment: [facility] has implemented the eGFR calculation approach that does not have a coefficient for race that conforms to the NKF-ASN Task Force Recommendations. Performed By: #### 4 6126 #### LAB [address] [place], [place] [address] Moody Martinez M.D. [id number] Creatinine [Mass/Vol] 2.60 mg/dL High 0.80-1.30 [facility] Comment on above: Order Comment: [facility] has implemented the eGFR calculation approach that does not have a coefficient for race that conforms to the NKF-ASN Task Force Recommendations. Performed By: #### 4 6126 #### LAB [address] [place] [address] Moody Martinez M.D. [id number] EGFR 24 mL/min/1.73 m2 Low >=60 [facility] Comment on above: Order Comment: [facility] has implemented the eGFR calculation approach that does not have a coefficient for race that conforms to the NKF-ASN Task Force Recommendations. Result Comment: Albin mated GFR was calculated using the 2020 CKD-EPI creatinine equation. Performed By: #### 4 6126 #### LAB [address] [place] [id number] Moody Martinez M.D. [id number] Glucose [Mass/Vol] 467 mg/dL Off scale high 65-[address] [facility] Comment on above: Order Comment: [facility] has implemented the eGFR calculation approach that does not have a coefficient for race that conforms to the NKF-ASN Task Force Recommendations. Performed By: #### 4 6126 #### LAB [address] [place] [id number] Moody Martinez M.D. [id number] HCO3 (Bld) [Moles/Vol] 17 mmol/L Low 21-[address] [facility] Comment on above: Order Comment: [facility] has implemented the eGFR calculation approach that does not have a coefficient for race that conforms to the NKF-ASN Task Force Recommendations. Performed By: #### 4 6126 #### LAB [address] [place] [id number] Moody Martinez M.D. [id number] Potassium [Moles/Vol] 6.3 mmol/L Off scale high 3.5-5.1 [facility] Comment on above: Order Comment: [facility] has implemented the eGFR calculation approach that does not have a coefficient for race that conforms to the NKF-ASN Task Force Recommendations. Performed By: #### 4 6126 #### LAB [address] [place] [id number] Moody Martinez M.D. [id number] Protein [Mass/Vol] 5.6 g/dL Low 6.0-8.0 [facility] Comment on above: Order Comment: [facility] has implemented the eGFR calculation approach that does not have a coefficient for race that conforms to the NKF-ASN Task Force Recommendations. Performed By: #### 4 6126 #### LAB [address] [place] [address] Moody Martinez M.D. [id number] Sodium [Moles/Vol] 130 mmol/L Low 135-145 [facility] Comment on above: Order Comment: [facility] has implemented the eGFR calculation approach that does not have a coefficient for race that conforms to the NKF-ASN Task Force Recommendations. Performed By: #### 4 6126 #### LAB [address] [place] [address] Moody Martinez M.D. [id number] Urea nitrogen [Mass/Vol] 92 mg/dL High 8-25 [facility] Comment on above: Order Comment: [facility] has implemented the eGFR calculation approach that does not have a coefficient for race that conforms to the NKF-ASN Task Force Recommendations. Performed By: #### 4 6126 ####[facility] [address] [place] [address] Moody Martinez M.D. [id number] Urea nitrogen/Creatinine [Mass ratio] 35.4 mg/mg High 10.0-20.0 [facility] Comment on above: Order Comment: [facility] has implemented the eGFR calculation approach that does not have a coefficient for race that conforms to the NKF-ASN Task Force Recommendations. Performed By: #### 4 6126 ####[facility] [address] [place], [place] [address] Moody Martinez M.D. [id number] CORONARY ANGIOGRAPHYon 10-27 CORONARY ANGIOGRAPHY This is a summary report. The complete report is available in the patient's medical record. If you cannot access the medical record, please contact the sending organization for a detailed fax or copy. 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 Ost LM lesion is 40% stenosed. PRACHI flow is 3. The lesion is type C. The lesion is calcified. Left Anterior Descending: The vessel is moderate in size. Mid LAD lesion is 85% stenosed. PRACHI flow is 3. The lesion is type C. The lesion is calcified. First Diagonal Branch: The vessel is small. There is moderate diffuse disease throughout the vessel. Second Diagonal Branch: The vessel is moderate in size. 2nd Diag lesion is 80% stenosed. PRACHI flow is 3. The lesion is type C. Left Circumflex: The vessel is small. There is moderate diffuse disease throughout the vessel. Right Coronary Artery: The vessel is moderate in size. Ost RCA to Prox RCA lesion is 35% stenosed. PRACHI flow is 3. The lesion is type C. The lesion is calcified. Mid RCA lesion is 80% stenosed. PRACHI flow is 3. The lesion is type C. The lesion is calcified. Intervention No interventions have been documented. Left Ventricle LV systolic pressure is elevated. 195 mmHg LV end diastolic pressure is normal. 13 mmHg Aortic Root Ao: 180/50/100 mmHg HR: 92 bpm There is no significant gradient across the aortic valve. Normal [facility] CT CHEST WITHOUT CONTRASTon 10-27-2024 CT CHEST WITHOUT CONTRAST EXAMINATION: CT CHEST WITHOUT CONTRAST HISTORY: ORDERING SYSTEM PROVIDED HISTORY: Cross clamp of aorta for CPB. TECHNOLOGIST PROVIDED HISTORY: Illness/Other. Reason for exam: Cross clamp of aorta for CPB. Encounter Type: Initial. Additional signs and symptoms: CP. ORDERING SYSTEM PROVIDED DIAGNOSIS CODES: J43.9 Pulmonary emphysema, unspecified emphysema type (HCC). R94.39 Cardiovascular stress test abnormal. R53.83 Fatigue, unspecified type. R06.02 SOB (shortness of breath). COMPARISON: CT chest November 29, 2023. TECHNIQUE: CT examination of the chest without IV contrast. Coronal and sagittal reformations were performed. Dose reduction techniques were achieved by using automated exposure control and/or adjustment of mA and/or kV according to patient size and/or use of iterative reconstruction technique. FINDINGS: LOWER NECK: Stable thyroid gland with a punctate right lobe calcification. No dominant nodules are identified. No enlarged supraclavicular lymph nodes. There are small atherosclerotic plaques of the carotid arteries. MEDIASTINUM: No pathologically enlarged mediastinal or appreciable hilar lymph nodes. AORTA: There is heavy atherosclerotic plaquing of the ascending aorta which predominantly involves the posterior wall. The remainder of the thoracic aorta including the arch and descending portion shows extensive heavy atherosclerotic plaquing. No aneurysmal dilatation. There is also heavy plaquing of the proximal left subclavian artery. HEART: Heavy multivessel coronary artery calcifications. Dense calcifications of the mitral valve annulus. No pericardial effusion. ESOPHAGUS: Small hiatal hernia. CHEST WALL: No enlarged axillary lymph nodes. Scattered edema in the subcutaneous tissues of the chest wall favoring the lateral left chest wall for example (image 69). No suspicious masses or subcutaneous emphysema. UPPER ABDOMEN: Heavy atherosclerotic vascular disease of the aorta and branch vessels partially imaged with a partially imaged atrophic-appearing right kidney. No suspicious mass is identified on the unenhanced study. LUNGS/PLEURA: There is mild bilateral posterior lower lobe dependent opacities and strand-like opacities likely related to atelectasis with resolution of the previously seen bilateral pleural effusions and lower lung consolidation. The remainder of the lungs show no acute airspace disease or suspicious nodules. Stable 4-5 mm nodule at the minor fissure (image 62) consistent with a lymph node. Minimal strand-like debris within the central airways consistent with retained mucus secretions with no suspicious central airway nodules. OSSEOUS STRUCTURES: No aggressive bone lesions. Intact sternum. IMPRESSION: 1. Heavy atherosclerotic vascular disease including heavy plaquing of the ascending thoracic aorta but predominately involving the posterior wall. 2. Bilateral strand-like and dependent posterior lower lobe opacities consistent with atelectasis. Otherwise, no acute pulmonary disease or suspicious nodules. 3. Small hiatal hernia. 4. Mild edema in the subcutaneous tissues of the chest wall. [employer] Workstation ID: [id number] Dictated by: KAHLIL VARGHESE on WedOct 27, 2024 1:25:27 PM EST Transcribed by: WARREN PRITCHARD on WedOct 27, 2024 1:31:49 PM EST Finalized by: KAHLIL VARGHESE on WedOct 27, 2024 3:01:00 PM EST Normal [facility] Comment on above: Order Comment: Injur y/Trauma or Illness?:Illness/Other How long have you had these symptoms (acute/chronic)?:Acute Reason for exam?:cross clamp of aorta for CPB Type of Exam?:Initial Additional signs and symptoms?:cp CT Chest WO contraston 10-27 1. Heavy atherosclerotic vascular disease including heavy plaquing of the ascending thoracic aorta but predominately involving the posterior wall. 2. Bilateral strand-like and dependent posterior lower lobe opacities consistent with atelectasis. Otherwise, no acute pulmonary disease or suspicious nodules. 3. Small hiatal hernia. 4. Mild edema in the subcutaneous tissues of the chest wall. [employer] Workstation ID: [id number] [facility] EXAMINATION: CT CHEST WITHOUT CONTRAST HISTORY: ORDERING SYSTEM PROVIDED HISTORY: Cross clamp of aorta for CPB. TECHNOLOGIST PROVIDED HISTORY: Illness/Other. Reason for exam: Cross clamp of aorta for CPB. Encounter Type: Initial. Additional signs and symptoms: CP. ORDERING SYSTEM PROVIDED DIAGNOSIS CODES: J43.9 Pulmonary emphysema, unspecified emphysema type (HCC). R94.39 Cardiovascular stress test abnormal. R53.83 Fatigue, unspecified type. R06.02 SOB (shortness of breath). COMPARISON: CT chest November 29, 2023. TECHNIQUE: CT examination of the chest without IV contrast. Coronal and sagittal reformations were performed. Dose reduction techniques were achieved by using automated exposure control and/or adjustment of mA and/or kV according to patient size and/or use of iterative reconstruction technique. FINDINGS: LOWER NECK: Stable thyroid gland with a punctate right lobe calcification. No dominant nodules are identified. No enlarged supraclavicular lymph nodes. There are small atherosclerotic plaques of the carotid arteries. MEDIASTINUM: No pathologically enlarged mediastinal or appreciable hilar lymph nodes. AORTA: There is heavy atherosclerotic plaquing of the ascending aorta which predominantly involves the posterior wall. The remainder of the thoracic aorta including the arch and descending portion shows extensive heavy atherosclerotic plaquing. No aneurysmal dilatation. There is also heavy plaquing of the proximal left subclavian artery. HEART: Heavy multivessel coronary artery calcifications. Dense calcifications of the mitral valve annulus. No pericardial effusion. ESOPHAGUS: Small hiatal hernia. CHEST WALL: No enlarged axillary lymph nodes. Scattered edema in the subcutaneous tissues of the chest wall favoring the lateral left chest wall for example (image 69). No suspicious masses or subcutaneous emphysema. UPPER ABDOMEN: Heavy atherosclerotic vascular disease of the aorta and branch vessels partially imaged with a partially imaged atrophic-appearing right kidney. No suspicious mass is identified on the unenhanced study. LUNGS/PLEURA: There is mild bilateral posterior lower lobe dependent opacities and strand-like opacities likely related to atelectasis with resolution of the previously seen bilateral pleural effusions and lower lung consolidation. The remainder of the lungs show no acute airspace disease or suspicious nodules. Stable 4-5 mm nodule at the minor fissure (image 62) consistent with a lymph node. Minimal strand-like debris within the central airways consistent with retained mucus secretions with no suspicious central airway nodules. OSSEOUS STRUCTURES: No aggressive bone lesions. Intact sternum. [employer] Kahlil Tyler, DO - 10/27/2024 EXAMINATION: CT CHEST WITHOUT CONTRAST HISTORY: ORDERING SYSTEM PROVIDED HISTORY: Cross clamp of aorta for CPB. TECHNOLOGIST PROVIDED HISTORY: Illness/Other. Reason for exam: Cross clamp of aorta for CPB. Encounter Type: Initial. Additional signs and symptoms: CP. ORDERING SYSTEM PROVIDED DIAGNOSIS CODES: J43.9 Pulmonary emphysema, unspecified emphysema type (HCC). R94.39 Cardiovascular stress test abnormal. R53.83 Fatigue, unspecified type. R06.02 SOB (shortness of breath). COMPARISON: CT chest November 29, 2023. TECHNIQUE: CT examination of the chest without IV contrast. Coronal and sagittal reformations were performed. Dose reduction techniques were achieved by using automated exposure control and/or adjustment of mA and/or kV according to patient size and/or use of iterative reconstruction technique. FINDINGS: LOWER NECK: Stable thyroid gland with a punctate right lobe calcification. No dominant nodules are identified. No enlarged supraclavicular lymph nodes. There are small atherosclerotic plaques of the carotid arteries. MEDIASTINUM: No pathologically enlarged mediastinal or appreciable hilar lymph nodes. AORTA: There is heavy atherosclerotic plaquing of the ascending aorta which predominantly involves the posterior wall. The remainder of the thoracic aorta including the arch and descending portion shows extensive heavy atherosclerotic plaquing. No aneurysmal dilatation. There is also heavy plaquing of the proximal left subclavian artery. HEART: Heavy multivessel coronary artery calcifications. Dense calcifications of the mitral valve annulus. No pericardial effusion. ESOPHAGUS: Small hiatal hernia. CHEST WALL: No enlarged axillary lymph nodes. Scattered edema in the subcutaneous tissues of the chest wall favoring the lateral left chest wall for example (image 69). No suspicious masses or subcutaneous emphysema. UPPER ABDOMEN: Heavy atherosclerotic vascular disease of the aorta and branch vessels partially imaged with a partially imaged atrophic-appearing right kidney. No suspicious mass is identified on the unenhanced study. LUNGS/PLEURA: There is mild bilateral posterior lower lobe dependent opacities and strand-like opacities likely related to atelectasis with resolution of the previously seen bilateral pleural effusions and lower lung consolidation. The remainder of the lungs show no acute airspace disease or suspicious nodules. Stable 4-5 mm nodule at the minor fissure (image 62) consistent with a lymph node. Minimal strand-like debris within the central airways consistent with retained mucus secretions with no suspicious central airway nodules. OSSEOUS STRUCTURES: No aggressive bone lesions. Intact sternum. IMPRESSION: 1. Heavy atherosclerotic vascular disease including heavy plaquing of the ascending thoracic aorta but predominately involving the posterior wall. 2. Bilateral strand-like and dependent posterior lower lobe opacities consistent with atelectasis. Otherwise, no acute pulmonary disease or suspicious nodules. 3. Small hiatal hernia. 4. Mild edema in the subcutaneous tissues of the chest wall. 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 Ost LM lesion is 40% stenosed. PRACHI flow is 3. The lesion is type C. The lesion is calcified. Left Anterior Descending: The vessel is moderate in size. Mid LAD lesion is 85% stenosed. PRACHI flow is 3. The lesion is type C. The lesion is calcified. First Diagonal Branch: The vessel is small. There is moderate diffuse disease throughout the vessel. Second Diagonal Branch: The vessel is moderate in size. 2nd Diag lesion is 80% stenosed. PRACHI flow is 3. The lesion is type C. Left Circumflex: The vessel is small. There is moderate diffuse disease throughout the vessel. Right Coronary Artery: The vessel is moderate in size. Ost RCA to Prox RCA lesion is 35% stenosed. PRACHI flow is 3. The lesion is type C. The lesion is calcified. Mid RCA lesion is 80% stenosed. PRACHI flow is 3. The lesion is type C. The lesion is calcified. Intervention No interventions have been documented. Left Ventricle LV systolic pressure is elevated. 195 mmHg LV end diastolic pressure is normal. 13 mmHg Aortic Root Ao: 180/50/100 mmHg HR: 92 bpm There is no significant gradient across the aortic valve. [employer] CV [facility] Citrated TEG (Cardiac) with HeparinaseOrdered By: Burton Zendejas on 10-27-2024 (CFF-FLEV) Cit. Func.Fib.Estimated Func.Fibrinogen Level 381.4 mg/dL 278.0 - 581.0 mg/dL [facility] Clot angle TEG (Bld) [Angle] 73.2 deg 63.0 - 78.0 deg [facility] Clot formation TEG (Bld) [Time] 1.3 min 0.8 - 2.1 min [facility] Clotting time after addition of heparinase TEG (Bld) 7.6 min 4.3 - 8.3 min [facility] Clotting time.intrinsic coagulation system activated Rotational TEG (Bld) 16.4 min High 4.6 - 9.1 min [facility] Interpretation and review of laboratory results Abnormal [facility] Maximum clot firmness TEG (Bld) [Length] 50.9 mm Low 52.0 - 69.0 mm [facility] Maximum clot firmness TEG (Bld) [Length] 20.9 mm 15.0 - 32.0 mm [facility] Maximum clot firmness.extrinsic coagulation system activated Rotational TEG (Bld) [Length] 62.3 mm 52.0 - 70.0 mm [facility] Comprehensive metabolic 2000 panelOrdered By: Ya Izaguirre on 10-27-2024 Albumin [Mass/Vol] 3.4 g/dL 3.2 - 5.2 g/dL [facility] ALP [Catalytic activity/Vol] 86 U/L 40 - 150 U/L [facility] ALT [Catalytic activity/Vol] 13 U/L 0-50 U/L [facility] Anion gap [Moles/Vol] 20 mmol/L 10 - 20 mmol/L [facility] AST [Catalytic activity/Vol] 12 U/L 0-50 U/L [facility] Bilirubin [Mass/Vol] 0.3 mg/dL 0.0 - 1 .3 mg/dL [facility] Calcium [Mass/Vol] 8.4 mg/dL 8.4 - 10. 2 mg/dL [facility] Chloride [Moles/Vol] 99 mmol/L 98 - 10 8 mmol/L [facility] Creatinine [Mass/Vol] 2.55 mg/dL High 0.80 - 1.30 mg/dL [facility] GFR/1.73 sq M.predicted CKD-EPI (S/P/Bld) [Vol rate/Area] 25 Low - PINF [facility] Comment on above: Estimated GFR was ca lculated using the 2020 CKD-EPI creatinine equation. Glucose [Mass/Vol] 564 mg/dL Critically high 65 - 99 mg/d L [facility] HCO3 [Moles/Vol] 15 mmol/L Low 21 - 32 mmol/L [facility] Potassium [Moles/Vol] 5.9 mmol/L High 3.5 - 5.1 mmol/L [facility] Protein [Mass/Vol] 5.8 g/dL Low 6.0 - 8.0 g/dL [facility] Sodium [Moles/Vol] 128 mmol/L Low 135 - 145 mmol/L [facility] Urea nitrogen [Mass/Vol] 93 mg/dL High 8 - 25 mg/dL [facility] Urea nitrogen/Creatinine [Mass ratio] 36.5 mg/mg High 10.0 - 20.0 [facility] y Services has implemented the eGFR calculation approach that does not have a coefficient for race that conforms to the NKF-ASN Task Force Recommendations. [facility] Comprehensive metabolic 1999 panelOrdered By: Rosalia March on 10-27-2024 Albumin [Mass/Vol] 3.5 g/dL 3.2 - 5.2 g/dL [facility] ALP [Catalytic activity/Vol] 92 U/L 40 - 150 U/L [facility] ALT [Catalytic activity/Vol] 21 U/L 0-50 U/L [facility] Anion gap [Moles/Vol] 20 mmol/L 10 - 20 mmol/L [facility] AST [Catalytic activity/Vol] 14 U/L 0-50 U/L [facility] Bilirubin [Mass/Vol] 0.3 mg/dL 0.0 - 1 .3 mg/dL [facility] Calcium [Mass/Vol] 8.7 mg/dL 8.4 - 10. 2 mg/dL [facility] Chloride [Moles/Vol] 99 mmol/L 98 - 10 8 mmol/L [facility] Creatinine [Mass/Vol] 2.6 mg/dL High 0.80 - 1.30 mg/dL [facility] GFR/1.73 sq M.predicted CKD-EPI (S/P/Bld) [Vol rate/Area] 24 Low - PINF [facility] Comment on above: Estimated GFR was ca lculated using the 2020 CKD-EPI creatinine equation. Glucose [Mass/Vol] 467 mg/dL Critically high 65 - 99 mg/d L [facility] HCO3 [Moles/Vol] 17 mmol/L Low 21 - 32 mmol/L [facility] Interpretation and review of laboratory results Abnormal [facility] Potassium [Moles/Vol] 6.3 mmol/L Critically high 3.5 - 5.1 mmol/L [facility] Protein [Mass/Vol] 5.6 g/dL Low 6.0 - 8.0 g/dL [facility] Sodium [Moles/Vol] 130 mmol/L Low 135 - 145 mmol/L [facility] Urea nitrogen [Mass/Vol] 92 mg/dL High 8 - 25 mg/dL [facility] Urea nitrogen/Creatinine [Mass ratio] 35.4 mg/mg High 10.0 - 20.0 [facility] has implemented the eGFR calculation approach that does not have a coefficient for race that conforms to the NKF-ASN Task Force Recommendations. [facility] ECHOCARDIOGRAM COMPLETEon ECHOCARDIOGRAM COMPLETE Patient Info Name: ENOC FERNANDES Age: 78 years : 1945 Gender: Male Ht: 170 cm Wt: 66 kg BSA: 1.77 m2 HR: 63 bpm BP: 148 / 55 mmHg Heart Rhythm: Sinus Arrhythmia Technical Quality: Fair Exam Date: 10/27/2024 1:22 PM Patient Status: Outpatient Cash Management Associate: Jyoti Perez RDCS Exam Type: ECHOCARDIOGRAM COMPLETE Study Info Indications - Abnormal electrocardiogram [ECG] [EKG] Referring Physician: MARIE Arriaga; [id number] BMI: 22.71 kg/m2 Summary 1. Normal LV chamber size. Normal wall thickness. Systolic function is normal with no regional wall motion abnormalities. Estimated ejection fraction of 60-65%. 2. Right ventricular size and systolic function are normal. 3. There is mild aortic valve regurgitation. 4. There is pulmonary hypertension, estimated right ventricle systolic pressure is 49 mmHg. History/Risk Factors Hypertension: Yes Dyslipidemia: Yes Myocardial Infarction ([place]): No Congestive Heart Failure (CHF): Hx CHF Diabetes Mellitus: Type I COPD: Yes Tobacco Use: Current - Every Day Family History: Coronary Artery Disease History/Risk Factors Squamous cell cancer. Prior Interventions Pacemaker: No PCI: No CABG: No ICD: No Left Ventricle Normal LV chamber size. Normal wall thickness. Systolic function is normal with no regional wall motion abnormalities. Estimated ejection fraction of 60-65%. The left ventricular diastolic function is indeterminate. Right Ventricle Right ventricular size and systolic function are normal. Left Atria Left atrial chamber is normal with a left atrial volume index of 21 ml/m2 by BP MOD. Right Atria Right atrial chamber dimension is enlarged. Aortic Valve The aortic valve is trileaflet. There is mild aortic valve sclerosis. There is no aortic valve stenosis. There is mild aortic valve regurgitation. Pulmonic Valve The pulmonic valve is not well visualized. There is no pulmonic valve stenosis. There is no pulmonic regurgitation. Mitral Valve The mitral valve has thickened leaflets and calcified annulus. There is no mitral valve stenosis. There is trace mitral valve regurgitation. Tricuspid Valve The tricuspid valve leaflets are normal. There is no significant tricuspid valve stenosis. There is trace tricuspid valve regurgitation. There is pulmonary hypertension, estimated right ventricle systolic pressure is 49 mmHg. Pericardium/Pleural There is no pericardial effusion. Inferior Vena Cava Dilated inferior vena cava with <50% collapse upon inspiration consistent with elevated right atrial pressure. Aorta The aortic measurements are indexed to age and body surface area. The aortic root is normal measuring 2.8 cm with an index of 1.6 cm/m2. Wall Motion Scoring Wall Motion Scoring Index: 1.00 Left Ventricular Outflow Tract ------- Name Value Normal ------- LVOT 2D ------- LVOT Diameter 2.0 cm LVOT Doppler ------- LVOT Peak Velocity 1.3 m/s LVOT Peak Gradient 8 mmHg LVOT Mean Gradient 4 mmHg LVOT VTI 31 cm LVOT VTI/AV VTI Ratio 1.0 LVOT Stroke Volume 97 ml LVOT Stroke Index 55.05 ml/m2 Pulmonic Valve ------- Name Value Normal ------- RVOT Doppler ------- RVOT Peak Velocity 138 cm/s RVOT Peak Gradient 8 mmHg RVOT Mean Gradient 4 mmHg RVOT VTI 31 cm PV Doppler ------- PV Peak Velocity 1.32 m/s PV Peak Gradient 7 mmHg PV Mean Gradient 4 mmHg PV VTI 28 cm Mitral Valve ------- Name Value Normal ------- MV Doppler ------- MV Peak Velocity 1.46 m/s MV Peak Gradient 14 mmHg MV Mean Gradient 5 mmHg MV VTI 56 cm MV Decel Mcintosh 850 cm/s2 MV PHT 90 ms MV Area (PHT) 2.4 cm2 4.0-5.0 MV Area (Cont Eq VTI) 1.7 cm2 MV Area Index (Cont Eq VTI) 0.99 cm2/m2 MV DVI 1.80 MV Diastolic Function ------- MV E Peak Velocity 0.91 m/s MV A Peak Velocity 1.24 m/s MV E/A 0.7 MV Decel Time 312 ms MV Annular TDI ------- MV Septal e' Velocity 6.3 cm/s >=8.0 MV E/e' (Septal) 14.3 <=8.0 MV Lateral e' Velocity 8.4 cm/s >=9.5 MV E/e' (Lateral) 10.8 <=8.0 MV e' Average 7. (more content not included)... Normal [facility] Echo completeOrdered By: Fauzia Garay on 10-27-2024 Aortic valve area 3.78153 cm [facility] Work Phone: [phone] AV mean gradient 4 mmHg [facility] Work Phone: AV peak gradient 7.1824 mmHg [facility] Work Phone: [phone] 00 EF 70.2889 % [facility] Work Phone: [phone] [facility] Work Phone: Echo completeon 10-27-2024 Patient Info Name: ENOC FERNANDES Age: 78 years : 1945 Gender: Male Ht: 170 cm Wt: 66 kg BSA: 1.77 m2 HR: 63 bpm BP: 148 / 55 mmHg Heart Rhythm: Sinus Arrhythmia Technical Quality: Fair Exam Date: 10/27/2024 1:22 PM Patient Status: Outpatient Cash Management Associate: Jyoti Perez RDCS Exam Type: ECHOCARDIOGRAM COMPLETE Study Info Indications - Abnormal electrocardiogram [ECG] [EKG] Referring Physician: [id number] Thompson; [id number] BMI: 22.71 kg/m2 Summary 1. Normal LV chamber size. Normal wall thickness. Systolic function is normal with no regional wall motion abnormalities. Estimated ejection fraction of 60-65%. 2. Right ventricular size and systolic function are normal. 3. There is mild aortic valve regurgitation. 4. There is pulmonary hypertension, estimated right ventricle systolic pressure is 49 mmHg. History/Risk Factors Hypertension: Yes Dyslipidemia: Yes Myocardial Infarction ([place]): No Congestive Heart Failure (CHF): Hx CHF Diabetes Mellitus: Type I COPD: Yes Tobacco Use: Current - Every Day Family History: Coronary Artery Disease History/Risk Factors Squamous cell cancer. Prior Interventions Pacemaker: No PCI: No CABG: No ICD: No Left Ventricle Normal LV chamber size. Normal wall thickness. Systolic function is normal with no regional wall motion abnormalities. Estimated ejection fraction of 60-65%. The left ventricular diastolic function is indeterminate. Right Ventricle Right ventricular size and systolic function are normal. Left Atria Left atrial chamber is normal with a left atrial volume index of 21 ml/m2 by BP MOD. Right Atria Right atrial chamber dimension is enlarged. Aortic Valve The aortic valve is trileaflet. There is mild aortic valve sclerosis. There is no aortic valve stenosis. There is mild aortic valve regurgitation. Pulmonic Valve The pulmonic valve is not well visualized. There is no pulmonic valve stenosis. There is no pulmonic regurgitation. Mitral Valve The mitral valve has thickened leaflets and calcified annulus. There is no mitral valve stenosis. There is trace mitral valve regurgitation. Tricuspid Valve The tricuspid valve leaflets are normal. There is no significant tricuspid valve stenosis. There is trace tricuspid valve regurgitation. There is pulmonary hypertension, estimated right ventricle systolic pressure is 49 mmHg. Pericardium/Pleural There is no pericardial effusion. Inferior Vena Cava Dilated inferior vena cava with <50% collapse upon inspiration consistent with elevated right atrial pressure. Aorta The aortic measurements are indexed to age and body surface area. The aortic root is normal measuring 2.8 cm with an index of 1.6 cm/m2. Wall Motion Scoring Wall Motion Scoring Index: 1.00 Left Ventricular Outflow Tract ------- Name Value Normal ------- LVOT 2D ------- LVOT Diameter 2.0 cm LVOT Doppler ------- LVOT Peak Velocity 1.3 m/s LVOT Peak Gradient 8 mmHg LVOT Mean Gradient 4 mmHg LVOT VTI 31 cm LVOT VTI/AV VTI Ratio 1.0 LVOT Stroke Volume 97 ml LVOT Stroke Index 55.05 ml/m2 Pulmonic Valve ------- Name Value Normal ------- RVOT Doppler ------- RVOT Peak Velocity 138 cm/s RVOT Peak Gradient 8 mmHg RVOT Mean Gradient 4 mmHg RVOT VTI 31 cm PV Doppler ------- PV Peak Velocity 1.32 m/s PV Peak Gradient 7 mmHg PV Mean Gradient 4 mmHg PV VTI 28 cm Mitral Valve ------- Name Value Normal (more content not included)... FUJI SYNAPSE Diogenes Mckinney MD - 10/27/2024 Patient Info Name: ENOC FERNANDES Age: 78 years : 1945 Gender: Male Ht: 170 cm Wt: 66 kg BSA: 1.77 m2 HR: 63 bpm BP: 148 / 55 mmHg Heart Rhythm: Sinus Arrhythmia Technical Quality: Fair Exam Date: 10/27/2024 1:22 PM Patient Status: Outpatient Cash Management Associate: Jyoti Perez [facility] Exam Type: ECHOCARDIOGRAM COMPLETE Study Info Indications - Abnormal electrocardiogram [ECG] [EKG] Referring Physician: MARIE Arriaga; [id number] BMI: 22.71 kg/m2 Summary 1. Normal LV chamber size. Normal wall thickness. Systolic function is normal with no regional wall motion abnormalities. Estimated ejection fraction of 60-65%. 2. Right ventricular size and systolic function are normal. 3. There is mild aortic valve regurgitation. 4. There is pulmonary hypertension, estimated right ventricle systolic pressure is 49 mmHg. History/Risk Factors Hypertension: Yes Dyslipidemia: Yes Myocardial Infarction ([place]): No Congestive Heart Failure (CHF): Hx CHF Diabetes Mellitus: Type I COPD: Yes Tobacco Use: Current - Every Day Family History: Coronary Artery Disease History/Risk Factors Squamous cell cancer. Prior Interventions Pacemaker: No PCI: No CABG: No ICD: No Left Ventricle Normal LV chamber size. Normal wall thickness. Systolic function is normal with no regional wall motion abnormalities. Estimated ejection fraction of 60-65%. The left ventricular diastolic function is indeterminate. Right Ventricle Right ventricular size and systolic function are normal. Left Atria Left atrial chamber is normal with a left atrial volume index of 21 ml/m2 by BP MOD. Right Atria Right atrial chamber dimension is enlarged. Aortic Valve The aortic valve is trileaflet. There is mild aortic valve sclerosis. There is no aortic valve stenosis. There is mild aortic valve regurgitation. Pulmonic Valve The pulmonic valve is not well visualized. There is no pulmonic valve stenosis. There is no pulmonic regurgitation. Mitral Valve The mitral valve has thickened leaflets and calcified annulus. There is no mitral valve stenosis. There is trace mitral valve regurgitation. Tricuspid Valve The tricuspid valve leaflets are normal. There is no significant tricuspid valve stenosis. There is trace tricuspid valve regurgitation. There is pulmonary hypertension, estimated right ventricle systolic pressure is 49 mmHg. Pericardium/Pleural There is no pericardial effusion. Inferior Vena Cava Dilated inferior vena cava with <50% collapse upon inspiration consistent with elevated right atrial pressure. Aorta The aortic measurements are indexed to age and body surface area. The aortic root is normal measuring 2.8 cm with an index of 1.6 cm/m2. Wall Motion Scoring Wall Motion Scoring Index: 1.00 Left Ventricular Outflow Tract ------- Name Value Normal ------- LVOT 2D ------- LVOT Diameter 2.0 cm LVOT Doppler ------- LVOT Peak Velocity 1.3 m/s LVOT Peak Gradient 8 mmHg LVOT Mean Gradient 4 mmHg LVOT VTI 31 cm LVOT VTI/AV VTI Ratio 1.0 LVOT Stroke Volume 97 ml LVOT Stroke Index 55.05 ml/m2 Pulmonic Valve ------- Name Value Normal ------- RVOT Doppler ------- RVOT Peak Velocity 138 cm/s RVOT Peak Gradient 8 mmHg RVOT Mean Gradient 4 mmHg RVOT VTI 31 cm PV Doppler ------- PV Peak Velocity 1.32 m/s PV Peak Gradient 7 mmHg PV Mean Gradient 4 mmHg PV VTI 28 cm Mitral Valve ------- Name Value Normal ------- MV Doppler ------- MV Peak Velocity 1.46 m/s MV Peak Gradient 14 mmHg MV Mean Gradient 5 mmHg MV VTI 56 cm MV Decel Mcintosh 850 cm/s2 MV PHT 90 ms MV Area (PHT) 2.4 cm2 4.0-5.0 MV Area (Cont Eq VTI) 1.7 cm2 MV Area Index (Cont Eq VTI) 0.99 cm2/m2 MV DVI 1.80 MV Diastolic Function ------- MV E Peak Velocity 0.91 m/s MV A Peak Velocity 1.24 m/s MV E/A 0.7 MV Decel Time 312 ms MV Annular TDI ------- MV Septal e' Velocity 6.3 cm/ (more content not included)... [facility] Glucose (Bld) [Mass/Vol]on 12-28-2023 Glucose [Mass/Vol] mg/dL Critically high 65 - 99 mg/d L [facility] Interpretation and review of laboratory results Abnormal [facility] Critical result acte d upon time of test. Test performed at bedside. [facility] Glucose [Mass/Vol] mg/dL Critically high 65 - 99 mg/d L [facility] Interpretation and review of laboratory results Abnormal [facility] Critical result acte d upon time of test. Test performed at bedside. [facility] Glucose [Mass/Vol] 369 mg/dL High 65 - 99 mg/dL [facility] Interpretation and review of laboratory results Abnormal [facility] Glucose [Mass/Vol] 381 mg/dL High 65 - 99 mg/dL [facility] Interpretation and review of laboratory results Abnormal [facility] Glucose [Mass/Vol] 385 mg/dL High 65 - 99 mg/dL [facility] Interpretation and review of laboratory results Abnormal [facility] Glucose [Mass/Vol] 498 mg/dL Critically high 65 - 99 mg/d L [facility] Interpretation and review of laboratory results Abnormal [facility] Critical result acte d upon time of test. Test performed at bedside. [facility] Glucose [Mass/Vol] 279 mg/dL High 65 - 99 mg/dL [facility] Interpretation and review of laboratory results Abnormal [facility] HEMOGLOBIN A1Con 10-27-2024 Glucose [Mass/Vol] 237 mg/dL High 74-114 [facility] Comment on above: Performed By: #### [id number] ####[facility] [address] [place], [place] [address] Moody Martinez M.D. [id number] HbA1c (Bld) [Mass fraction] 9.9 % High 4.2-5.6 [facility] Comment on above: Performed By: #### [id number] ####[facility] [address] [place], [place] [address] Moody Martinez M.D. [id number] Glucose [Mass/Vol] 232 mg/dL High 74-114 [facility] Comment on above: Performed By: #### [id number] #### LAB [address] [place], [place] [address] Moody Martinez M.D. [id number] HbA1c (Bld) [Mass fraction] 9.7 % High 4.2-5.6 [facility] Comment on above: Performed By: #### [id number] #### LAB [address] [place] [address] Moody Martinez M.D. [id number] HbA1c (Bld) [Mass fraction]o n 10-27-2024 Average glucose Estimated from glycated hemoglobin (Bld) [Mass/Vol] 232 mg/dL High 74 - 114 mg/dL [facility] Interpretation and review of laboratory results Abnormal [facility] Hemoglobin A1con 10-27-2024 HbA1c (Bld) [Mass fraction] 9.7 % High 4.2 - 5.6 % [facility] INR Coag (PPP) [Relative concha e]on 10-27-2024 Interpretation and review of laboratory results Normal [facility] PT Coag (PPP) [Time] 14.3 s [facility] During the induction phase of oral anticoagulation, the INR may not reflect the anticoagulation status of the patient. Therapeutic ranges for INR's are: Most clinical situations: INR 2.0-3.0 Mechanical Prosthetic Valve: INR 2.5-3.5 Critical: INR >5.0 [facility] LACTIC ACID, PLASMAon 2023 LACTIC ACID, PLASMA 1.6 mmol/L Normal 0.6-2.0 [facility] Comment on above: Performed By: #### [id number] #### LAB [address] [place] [address] Moody Martinez M.D. [id number] LIPASEon 10-27-2024 Lipase [Catalytic activity/Vol] 56 U/L Normal 15-65 [facility] Comment on above: Performed By: #### [id number] #### [facility] [address] [place] [address] Moody Martinez M.D. [id number] Lactate [Moles/Vol]on 2023 Interpretation and review of laboratory results Normal [facility] Lactic Acid, Plasmaon 2023 Lactate [Moles/Vol] 1.6 mmol/L 0.6 - 2. 0 mmol/L [facility] Lipaseon 10-27-2024 Lipase [Catalytic activity/Vol] 56 U/L 15 - 65 U/L [facility] MAGNESIUM LEVELon 10-27-2024 Magnesium [Mass/Vol] 2.6 mg/dL High 1.6-2.4 [facility] Comment on above: Performed By: #### [id number] ####[facility] [address] [place], [place] [address] Moody Martinez M.D. [id number] Magnesium [Mass/Vol] 2.5 mg/dL High 1.6-2.4 [facility] Comment on above: Performed By: #### 4 [id number] #### LAB [address] [place] [address] Moody Martinez M.D. [id number] Magnesium Levelon 10-27-2024 Magnesium [Mass/Vol] 2.5 mg/dL High 1.6 - 2 .4 mg/dL [facility] No Panel InformationOrdered By: Ya Izaguirre on 10-27-2024 Interpretation and review of laboratory results Abnormal [facility] No Panel Informationon 10-27 Interpretation and review of laboratory results Normal [facility] PHOSPHORUSon 10-27-2024 Phosphate [Mass/Vol] 4.4 mg/dL High 2.3-3.7 [facility] Comment on above: Performed By: #### 4 [id number] ####[facility] [address] [place] [address] Moody Martinez M.D. [id number] Phosphate [Mass/Vol] 5.2 mg/dL High 2.3-3.7 [facility] Comment on above: Performed By: #### 4 [id number] #### LAB [address] [place], [place] [address] Moody Martinez M.D. [id number] POC ARTERIAL BLOOD GAS PANEL -[facility] 10-27-2024 [id number] 19.6 mm Hg Normal [facility] Comment on above: Performed By: #### 4 [id number] ####[facility] [address] [place] [address] Moody Martinez M.D. [id number] BASE EXCESS, ARTERIAL -7.5 Low -2.0-2.0 [facility] Comment on above: Performed By: #### 4 [id number] ####[facility] [address] [place] [address] Moody Martinez M.D. [id number] FIO2 21 Normal [facility] Comment on above: Performed By: #### 4 8716 ####[facility] [address] [address] Moody Martinez M.D. [id number] HCO3 (Bld) [Moles/Vol] 17.5 mmol/L Low 22.0-26.0 [facility] Comment on above: Performed By: #### 4 8716 ####[facility] [address] [address] Moody Martinez M.D. [id number] Hematocrit (Bld) [Volume fraction] 30.0 % Low 41.0-53.0 [facility] Comment on above: Performed By: #### 4 8716 ####[facility] [address] [address] Moody Martinez M.D. [id number] Hemoglobin (Bld) [Mass/Vol] 9.8 g/dL Low 13.5-17.5 [facility] Comment on above: Performed By: #### 4 8716 ####[facility] [address] [address] Moody Martinez M.D. [id number] Oxygen saturation in Blood 97.3 % Normal 92.0-99.0 [facility] Comment on above: Performed By: #### 4 8716 ####[facility] [address] [address] Moody Martinez M.D. [id number] PCO2 ARTERIAL 32.9 mm Hg Low 35.0-45.0 [facility] Comment on above: Performed By: #### 4 8716 ####[facility] [address] [place], [place] [address] Moody Martinez M.D. [id number] PH ARTERIAL 7.33 Low 7.35-7.45 [facility] Comment on above: Performed By: #### 4 8716 ####[facility] [address] [place], [place] [address] Moody Martinez M.D. [id number] PO2 ARTERIAL 85 mm Hg Normal 75-85 [facility] Comment on above: Performed By: #### 4 8716 ####[facility] [address] [id number] Moody Martinez M.D. [id number] SPECIMEN SOURCE RADIANCE Radial, left Normal [facility] Comment on above: Performed By: #### 4 [id number] #### LAB [address] [id number] Moody Martinez M.D. [id number] POC Arterial Blood Gas Panel [facility] 10-27-2024 Alveolar-arterial oxygen Partial pressure difference 19.6 mm Hg [facility] Base excess Calc (Bld) [Moles/Vol] -7.5000 mmol/L Low -2.0 - 2.0 [facility] CO2 (Bld) [Partial pressure] 32.9 mm[Hg] Low [facility] Hematocrit (BldA) [Volume fraction] 30 % Low 41.0 - 53.0 % [facility] Inhaled oxygen concentration 21 % [facility] Interpretation and review of laboratory results Abnormal [facility] Oxygen (Bld) [Partial pressure] 85 mm[Hg] [facility] pH (Bld) 7.33 [pH] Low 7.35 - 7.45 [facility] Specimen source Nom (Unsp spec) Radial, left [facility] POC GLUCOSE - [facility] 024 Glucose [Mass/Vol] 443 mg/dL Off scale high 65-[address] [facility] Comment on above: Order Comment: Criti christian result acted upon time of test. Test performed at bedside. Performed By: #### 4 6932 ####[facility] [address] [id number] Moody Martinez M.D. [id number] POC GLUCOSE > Off scale high 65-99 [facility] Comment on above: Order Comment: Criti christian result acted upon time of test. Test performed at bedside. Performed By: #### 4 6932 #### LAB [address] [address] Moody Martinez M.D. [id number] POC GLUCOSE > Off scale [address] Comment on above: Order Comment: Criti christian result acted upon time of test. Test performed at bedside. Performed By: #### 4 6932 #### LAB [address] [address] Moody Martinez M.D. [id number] POC GLUCOSE > Off scale [address] Comment on above: Order Comment: Criti christian result acted upon time of test. Test performed at bedside. Performed By: #### 4 6932 #### LAB [address] [place] [address] Moody Martinez M.D. [id number] Glucose [Mass/Vol] 369 mg/dL [address] Comment on above: Performed By: #### 4 6932 #### LAB [address] [address] Moody Martinez M.D. [id number] Glucose [Mass/Vol] 381 mg/dL [address] Comment on above: Performed By: #### 4 6932 #### LAB [address] [address] Moody Martinez M.D. [id number] Glucose [Mass/Vol] 385 mg/dL [address] Comment on above: Performed By: #### 4 6979 #### LAB [address] [address] Moody Martinez M.D. [id number] Glucose [Mass/Vol] 498 mg/dL Off scale [address] Comment on above: Order Comment: Criti christian result acted upon time of test. Test performed at bedside. Performed By: #### 4 6081 #### LAB [address] [address] Moody Martinez M.D. [id number] Glucose [Mass/Vol] 279 mg/dL High 65-99 [facility] Comment on above: Performed By: #### L [id number] #### LAB [address] [address] Moody Martinez M.D. [id number] POTASSIUM LEVELon 10-27-2024 Potassium [Moles/Vol] 3.4 mmol/L Low 3.5-5.1 [facility] Comment on above: Performed By: #### 4 6351 #### LAB [address] [address] Moody Martinez M.D. [id number] PREALBUMINon 10-27-2024 Prealbumin [Mass/Vol] 15.9 mg/dL Low 20.0-40.0 [facility] Comment on above: Performed By: #### 4 4014 #### LAB [address] [address] Moody Martinez M.D. [id number] PT/INRon 10-27-2024 INR Coag (PPP) [Relative time] 1.1 {INR} 0.8 - 1.1 [facility] INR Coag (PPP) [Relative time] 1.1 {INR} Normal 0.8-1.1 [facility] Comment on above: Order Comment: Janet the induction phase of oral anticoagulation, the INR may not reflect the anticoagulation status of the patient. Therapeutic ranges for INR's are:Most clinical situations: INR 2.0-3.0Mechanical Prosthetic Valve: INR 2.5-3.5Critical: INR >5.0 Performed By: #### 4 6932 #### LAB [address] [address] Moody Martinez M.D. [id number] PT Coag (PPP) [Time] 14.3 s Normal 11.8-14.3 [facility] Comment on above: Order Comment: Janet the induction phase of oral anticoagulation, the INR may not reflect the anticoagulation status of the patient. Therapeutic ranges for INR's are:Most clinical situations: INR 2.0-3.0Mechanical Prosthetic Valve: INR 2.5-3.5Critical: INR >5.0 Performed By: #### 4 6932 #### [facility] [address] [place], [place] [address] Moody Martinez M.D. [id number] Phosphoruson 10-27-2024 Phosphate [Mass/Vol] 5.2 mg/dL High 2.3 - 3 .7 mg/dL [facility] Potassium Levelon 10-27-2024 Potassium [Moles/Vol] 3.4 mmol/L Low 3.5 - 5.1 mmol/L [facility] Potassium [Moles/Vol]on 10-02 Interpretation and review of laboratory results Abnormal [facility] Prealbuminon 10-27-2024 Prealbumin [Mass/Vol] 15.9 mg/dL Low 20.0 - 40.0 mg/dL [facility] Prealbumin [Mass/Vol]on 10-02 Interpretation and review of laboratory results Abnormal [facility] Segmental Doppler Lower Extr emity Arterialon 10-27-2024 Patient Info Name: ENOC FERNANDES Age: 78 years : 1945 Gender: Male Exam Date: 10/27/2024 9:50 AM Patient Status: Outpatient Learning And Development Consultant: Ya Jacob Referring Physician: ZOILA SALAZAR; Indications I73.9 - Peripheral vascular disease, unspecified Procedure Description 01391 Limited bilateral noninvasive physiologic studies of upper or lower extremity arteries with bidirectional Doppler/PVR waveform analysis at 1-2 levels. Conclusions * Right. * Right ankle brachial index indicates mild peripheral artery disease noted at the infrapopliteal level(s). ERIN is 0.81. * Moderate small vessel disease at the transmetatarsal level in the right foot. * Right toe brachial index is abnormal. TBI .27. * Left. * Left ankle brachial index indicates moderate peripheral artery disease noted at the iliofemoral level(s). ERIN is 0.65. * Moderate small vessel disease at the transmetatarsal level in the left foot. * Left toe brachial index is abnormal . TBI .28. Recommendations * The study indicates mild right leg arterial disease with an ERIN of 0.81, and moderate left leg arterial disease with an ERIN of 0.65. His right leg segmental pressures, Doppler waveforms and PVR waveforms suggest generalized atherosclerotic disease along the leg with strong biphasic waveform patterns. His left leg segmental pressures, Doppler waveforms and PVR waveforms suggest iliofemoral/femoral-p opliteal stenotic or occlusive disease with moderately blunted and dampened biphasic patterns. Clinical correlation advised. . Doppler Rt Common Femoral: Triphasic Rt Popliteal: Triphasic Rt Posterior Tibial: Biphasic Rt Dorsalis Pedis: Biphasic Lt Common Femoral: Biphasic Lt Popliteal: Biphasic Lt Posterior Tibial: Monophasic Lt Dorsalis Pedis: Monophasic PVR Rt Thigh: Normal Rt Calf: Normal Rt Ankle: Abnormal Lt Thigh: Abnormal Lt Calf: Abnormal Lt Ankle: Abnormal Rt Digit: Abnormal Lt Digit: Abnormal Segmental BP Findings No blood pressure obtained in right arm due to recent CATH. Rt Thigh: 163 Rt Calf: 130 Rt Posterior Tibial: 117 Rt Dorsalis Pedis: 115 Rt Digit: 39 1.13 0.90 0.81 0.80 0.27 Lt Brachial: 144 Lt Thigh: 98 Lt Calf: 102 Lt Posterior Tibial: 93 Lt Dorsalis Pedis: 90 Lt Digit: 40 0.68 0.71 0.65 0.63 0.28 Risk Factors Patient has a history of CHF, hypertension, diabetes, CAD and tobacco use-current. . Report Signatures Finalized by JO-ANN Nguyen DO on 10/27/2024 01:14 PM [facility] Flo Abdi III, DO - 10/27/2024 Patient Info Name: ENOC FERNANDES Age: 78 years : 1945 Gender: Male Exam Date: 10/27/2024 9:50 AM Patient Status: Outpatient Learning And Development Consultant: Ya Jacob Referring Physician: ZOILA SALAZAR; Indications I73.9 - Peripheral vascular disease, unspecified Procedure Description 60041 Limited bilateral noninvasive physiologic studies of upper or lower extremity arteries with bidirectional Doppler/PVR waveform analysis at 1-2 levels. Conclusions * Right. * Right ankle brachial index indicates mild peripheral artery disease noted at the infrapopliteal level(s). ERIN is 0.81. * Moderate small vessel disease at the transmetatarsal level in the right foot. * Right toe brachial index is abnormal. TBI .27. * Left. * Left ankle brachial index indicates moderate peripheral artery disease noted at the iliofemoral level(s). ERIN is 0.65. * Moderate small vessel disease at the transmetatarsal level in the left foot. * Left toe brachial index is abnormal . TBI .28. Recommendations * The study indicates mild right leg arterial disease with an ERIN of 0.81, and moderate left leg arterial disease with an ERIN of 0.65. His right leg segmental pressures, Doppler waveforms and PVR waveforms suggest generalized atherosclerotic disease along the leg with strong biphasic waveform patterns. His left leg segmental pressures, Doppler waveforms and PVR waveforms suggest iliofemoral/femoral-p opliteal stenotic or occlusive disease with moderately blunted and dampened biphasic patterns. Clinical correlation advised. . Doppler Rt Common Femoral: Triphasic Rt Popliteal: Triphasic Rt Posterior Tibial: Biphasic Rt Dorsalis Pedis: Biphasic Lt Common Femoral: Biphasic Lt Popliteal: Biphasic Lt Posterior Tibial: Monophasic Lt Dorsalis Pedis: Monophasic PVR Rt Thigh: Normal Rt Calf: Normal Rt Ankle: Abnormal Lt Thigh: Abnormal Lt Calf: Abnormal Lt Ankle: Abnormal Rt Digit: Abnormal Lt Digit: Abnormal Segmental BP Findings No blood pressure obtained in right arm due to recent CATH. Rt Thigh: 163 Rt Calf: 130 Rt Posterior Tibial: 117 Rt Dorsalis Pedis: 115 Rt Digit: 39 1.13 0.90 0.81 0.80 0.27 Lt Brachial: 144 Lt Thigh: 98 Lt Calf: 102 Lt Posterior Tibial: 93 Lt Dorsalis Pedis: 90 Lt Digit: 40 0.68 0.71 0.65 0.63 0.28 Risk Factors Patient has a history of CHF, hypertension, diabetes, CAD and tobacco use-current. . Report Signatures Finalized by JO-ANN Nguyen DO on 10/27/2024 01:14 PM [facility] T4, FREEon 10-27-2024 Free T4 [Mass/Vol] 1.3 ng/dL Normal 0.7-1.7 [facility] Comment on above: Performed By: #### 4 6567 ####[facility] [address] [place], [place] [address] Moody Martinez M.D. [id number] T4, Freeon 10-27-2024 Free T4 [Mass/Vol] 1.3 ng/dL 0.7 - 1.7 ng/dL [facility] TEG PLATELET MAPPING ([facility])on 10-27-2024 (AA-%AGGREGATION) AA PERCENT AGGREGATION 12.1 % Low 89.0-100.0 [facility] Comment on above: Performed By: #### L [id number] #### LAB [address] [address] Moody Martinez M.D. [id number] (AA-%INHIBITION) AA PERCENT INHIBITION 87.9 % High 0.0-11.0 [facility] Comment on above: Performed By: #### L [id number] #### LAB [address] [address] Moody Martinez M.D. [id number] (AA-MA) AA MAXIMUM AMPLITUDE 14.7 mm Low 51.0-71.0 [facility] Comment on above: Performed By: #### L [id number] #### LAB [address] [address] Moody Martinez M.D. [id number] (ACTF-MA) ACTIVATOR F MAXIMUM AMPLITUDE 7.8 mm Normal 2.0-19.0 [facility] Comment on above: Performed By: #### L [id number] #### LAB [address] [place] [address] Moody Martinez M.D. [id number] (ADP-%AGGREGATION) ADP PERCENT AGGREGATION 61.2 % Low 83.0-100.0 [facility] Comment on above: Performed By: #### L [id number] #### LAB [address] [address] Moody Martinez M.D. [id number] (ADP-%INHIBITION) ADP PERCENT INHIBITION 38.8 % High 0.0-17.0 [facility] Comment on above: Performed By: #### L [id number] #### LAB [address] [place] [address] Moody Martinez M.D. [id number] (ADP-MA) ADP MAXIMUM AMPLITUDE 42.7 mm Low 45.0-69.0 [facility] Comment on above: Performed By: #### L [id number] ####[facility] [address] [place], [place] [address] Moody Martinez M.D. [id number] ([facility]) KAOLIN WITH HEPARINASE MAXIMUM AMPLITUDE 64.8 mm Normal 53.0-68.0 [facility] Comment on above: Performed By: #### L [id number] #### LAB [address] [place], [place] [address] Moody Martinez M.D. [id number] TEG Platelet Mapping (Cardia c)on 10-27-2024 (AA-%Aggregation) AA Percent Aggregation 12.1 % Low 89.0 - 100.0 % [facility] (AA-%Inhibition) AA Percent Inhibition 87.9 % High 0.0 - 11.0 % [facility] (ADP-% Aggregation) ADP Percent Aggregation 61.2 % Low 83.0 - 100.0 % [facility] (ADP-%Inhibition) ADP PERCENT INHIBITION 38.8 % High 0.0 - 17.0 % [facility] Interpretation and review of laboratory results Abnormal [facility] Maximum amplitude AA induced Resonance TEG (Bld) [Length] 14.7 mm Low 51.0 - 71.0 mm [facility] Maximum amplitude activator F induced Resonance TEG (Bld) [Length] 7.8 mm 2.0 - 19.0 mm [facility] Maximum amplitude ADP induced Resonance TEG (Bld) [Length] 42.7 mm Low 45.0 - 69.0 mm [facility] Maximum amplitude kaolin induced after addition of heparinase Resonance TEG (Bld) [Length] 64.8 mm 53.0 - 68.0 mm [facility] TSHon 10-27-2024 TSH Qn 0.48 m[IU]/L Normal 0.27-4.20 [facility] Comment on above: Performed By: #### 4 6932 #### LAB [address] [place], [place] [address] Moody Martinez M.D. 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 [id number] pH (U) 5.0 [pH] Normal 5.0-7.0 [facility] Comment on above: Order Comment: Injur y/Trauma or Illness?:Illness/Other How long have you had these symptoms (acute/chronic)?:Acute Reason for exam?:cross clamp of aorta for CPB Type of Exam?:Initial Additional signs and symptoms?:cp Performed By: #### 4 6646 #### LAB [address] [address] Moody Martinez M.D. 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 [id number] UROBILINOGEN, URINE <2.0 Normal <2.0 [facility] Comment on above: Order Comment: Injur y/Trauma or Illness?:Illness/Other How long have you had these symptoms (acute/chronic)?:Acute Reason for exam?:cross clamp of aorta for CPB Type of Exam?:Initial Additional signs and symptoms?:cp Performed By: #### 4 6655 #### LAB [address] [address] Moody Martinez M.D. [id number] WBC LM.HPF (Urine sed) [#/Area] 1 /[HPF] Normal 0-5 [facility] Comment on above: Order Comment: Injur y/Trauma or Illness?:Illness/Other How long have you had these symptoms (acute/chronic)?:Acute Reason for exam?:cross clamp of aorta for CPB Type of Exam?:Initial Additional signs and symptoms?:cp Performed By: #### 4 6625 #### LAB [address] [place], [place] [address] Moody Martinez M.D. [id number] URINE AEROBIC CULTUREon 10-02 URINE AEROBIC CULTURE URINE CULTURE No Growth (<1,000 CFU/mL) Normal [facility] Comment on above: Order Comment: If PO SITIVE, send for sensitivities per cardiac surgeon Performed By: #### 4 4053 ####[facility] [address] Jose Cisse M.D. [id number] US DOPPLER CAROTIDon 024 US DOPPLER CAROTID Patient Info Name: ENOC FERNANDES Age: 78 years : 1945 Gender: Male Exam Date: 10/27/2024 10:32 AM Patient Status: Outpatient Learning And Development Consultant: Lori Fagan RDMS (), S Referring Physician: MARIE Arriaga; Indications Z01.810 - Encounter for preprocedural cardiovascular examination I65.23 - Occlusion and stenosis of bilateral carotid arteries Procedure Description 92226 Duplex examination using B-mode, color and spectral Doppler of extracranial arteries; complete bilateral study. NASCET criteria is used when performing imaging correlation with carotid duplex interpretation. Conclusions * Right. * Less than 50% stenosis in the right internal carotid artery. * Percent stenosis may be underestimated due to calcific shadowing. * Right innominate artery is not well visualized due depth of vessel. * Elevated velocity suggestive of stenosis in the right subclavian and external carotid arteries. There are post stenotic waveforms noted in the distal subclavian artery. * No evidence of hemodynamically significant stenosis in the right common carotid artery, however abnormal waveforms are noted.. * Right vertebral artery is patent with antegrade flow, however, abnormal waveforms are noted. * Left. * 50-69% stenosis in the left internal carotid artery per strict lab criteria, however, velocities of 623 cm/s with calcification are noted. Based on dey scale and color doppler, greater than 70% stenosis is suggested. Unable to obtain end diastolic velocity. * Percent stenosis may be underestimated due to calcific shadowing. * Elevated velocities noted in the left subclavian artery, however with triphasic waveforms. * Elevated velocity suggestive of stenosis in the left external carotid artery. * No evidence of hemodynamically significant stenosis in the left common carotid artery. * Left vertebral artery is patent with antegrade flow, however elevated velocities were noted. Recommendations * There appears to be a tight stenosis of the left internal carotid artery at the carotid bifurcation associated with dense atherosclerotic plaque. Advanced carotid imaging appears to be warranted. Clinical correlation is advised. Measurements ------- Name Value ------- Right PSV ------- Right Prox CCA PSV 138 cm/s Right Mid CCA PSV 155 cm/s Right Distal CCA PSV 120 cm/s Right Prox ICA PSV 170 cm/s Right Mid ICA PSV 142 cm/s Right Distal ICA PSV 93 cm/s Right ECA PSV 273 cm/s Right Vert PSV 20 cm/s Right Prox SCA PSV 296 cm/s Rt ICA/CCA Ratio 1.4 Measurements ------- Name Value ------- Right EDV ------- Right Prox CCA EDV 0 cm/s Right Mid CCA EDV 0 cm/s Right Distal CCA EDV 0 cm/s Right Prox ICA EDV 25 cm/s Right Mid ICA EDV 18 cm/s Right Distal ICA EDV 16 cm/s Right ECA EDV 0 cm/s Right Vert EDV 5 cm/s Right Prox SCA EDV 0 cm/s Measurements ------- Name Value ------- Left PSV ------- Left Prox CCA PSV 150 cm/s Left Mid CCA PSV 135 cm/s Left Prox ICA PSV 623 cm/s Left Mid ICA PSV 199 cm/s Left Distal ICA PSV 173 cm/s Left ECA PSV 595 cm/s Left Vert PSV 160 cm/s Left Prox SCA PSV 327 cm/s Measurements ------- Name Value ------- Left EDV ------- Left Prox CCA EDV 2 cm/s Left Mid CCA EDV 16 cm/s Left Prox ICA EDV 0 cm/s Left Mid ICA EDV 26 cm/s Left Distal ICA EDV 15 cm/s Left ECA EDV 0 cm/s Left Vert EDV 33 cm/s Left Prox SCA EDV 0 cm/s Right Findings * Calcific plaque noted in the right common carotid artery. * Calcific plaque noted in the right internal carotid artery. * Calcific plaque noted in the right external carotid artery. * Calcific plaque noted in the right subclavian artery. Left Findings * Calcific plaque noted in the left common carotid artery. * Calcific plaque noted in the left internal carotid artery. * Calcific plaque noted in the left external carotid artery. * Calcific plaque noted in the left subclavian artery. Prior Study Date: 02/04/2023 Risk Factors Patient has a history of hypertension, CHF, diabetes, CAD and tobacco use-current. . Notification of Results: Results c (more content not included)... Normal [facility] Comment on above: Order Comment: Dr. Sudha Parker to read US DOPPLER SEGMENTAL ARTERIA L LEGS BILATERALon 10-27-2024 US DOPPLER SEGMENTAL ARTERIAL LEGS BILATERAL Patient Info Name: ENOC FERNANDES Age: 78 years : 1945 Gender: Male Exam Date: 10/27/2024 9:50 AM Patient Status: Outpatient Learning And Development Consultant: Ya Jacob Referring Physician: ZOILA SALAZAR; Indications I73.9 - Peripheral vascular disease, unspecified Procedure Description 76161 Limited bilateral noninvasive physiologic studies of upper or lower extremity arteries with bidirectional Doppler/PVR waveform analysis at 1-2 levels. Conclusions * Right. * Right ankle brachial index indicates mild peripheral artery disease noted at the infrapopliteal level(s). ERIN is 0.81. * Moderate small vessel disease at the transmetatarsal level in the right foot. * Right toe brachial index is abnormal. TBI .27. * Left. * Left ankle brachial index indicates moderate peripheral artery disease noted at the iliofemoral level(s). ERIN is 0.65. * Moderate small vessel disease at the transmetatarsal level in the left foot. * Left toe brachial index is abnormal . TBI .28. Recommendations * The study indicates mild right leg arterial disease with an ERIN of 0.81, and moderate left leg arterial disease with an ERIN of 0.65. His right leg segmental pressures, Doppler waveforms and PVR waveforms suggest generalized atherosclerotic disease along the leg with strong biphasic waveform patterns. His left leg segmental pressures, Doppler waveforms and PVR waveforms suggest iliofemoral/femoral-p opliteal stenotic or occlusive disease with moderately blunted and dampened biphasic patterns. Clinical correlation advised. . Doppler Rt Common Femoral: Triphasic Rt Popliteal: Triphasic Rt Posterior Tibial: Biphasic Rt Dorsalis Pedis: Biphasic Lt Common Femoral: Biphasic Lt Popliteal: Biphasic Lt Posterior Tibial: Monophasic Lt Dorsalis Pedis: Monophasic PVR Rt Thigh: Normal Rt Calf: Normal Rt Ankle: Abnormal Lt Thigh: Abnormal Lt Calf: Abnormal Lt Ankle: Abnormal Rt Digit: Abnormal Lt Digit: Abnormal Segmental BP Findings No blood pressure obtained in right arm due to recent CATH. Rt Thigh: 163 Rt Calf: 130 Rt Posterior Tibial: 117 Rt Dorsalis Pedis: 115 Rt Digit: 39 1.13 0.90 0.81 0.80 0.27 Lt Brachial: 144 Lt Thigh: 98 Lt Calf: 102 Lt Posterior Tibial: 93 Lt Dorsalis Pedis: 90 Lt Digit: 40 0.68 0.71 0.65 0.63 0.28 Risk Factors Patient has a history of CHF, hypertension, diabetes, CAD and tobacco use-current. . Report Signatures Finalized by JO-ANN Nguyen DO on 10/27/2024 01:14 PM [facility] US RADIAL ARTERY MAPPING KARIN ATERALon 10-27-2024 US RADIAL ARTERY MAPPING BILATERAL Patient Info Name: ENOC FERNANDES Age: 78 years : 1945 Gender: Male Exam Date: 10/27/2024 11:23 AM Patient Status: Outpatient Learning And Development Consultant: Lori Fagan RDMS (AB), RVS Referring Physician: MARIE Arriaga; Indications - possible radial artery harvest Z01.810 - Encounter for preprocedural cardiovascular examination Procedure Description 19887 Duplex scan of upper extremity arteries or arterial bypass grafts using B-mode, color and spectral Doppler; unilateral or limited study. Conclusions * Right. * Right radial artery mapping was not performed due to recent heart catheterization. * Left. * Left palmar arch is incomplete. * Left radial artery is patent with measurements as listed. Recommendations * Please see measurements and note that left palmar arch is incomplete. ------- Name Value ------- PSV ------- Left Distal Brachial PSV 158 cm/s Left Distal Radial PSV 68 cm/s Left Distal Ulnar PSV 86 cm/s Left Artery AP ------- Left Prox Radial 3.4 mm Left Mid Radial 3.3 mm Left Distal Radial 2.5 mm ------- Name Value ------- EDV ------- Left Distal Brachial EDV 0 cm/s Left Distal Radial EDV 0 cm/s Left Distal Ulnar EDV 0 cm/s Risk Factors Patient has a history of hypertension, CHF, diabetes, CAD and tobacco use-current. . Report Signatures Finalized by Kristy Parker MD on 10/27/2024 11:50 AM [facility] Radial Artery Mapping Karin bone 10-27-2024 Patient Info Name: ENOC PERRYRE Age: 78 years : 1945 Gender: Male Exam Date: 10/27/2024 11:23 AM Patient Status: Outpatient Learning And Development Consultant: Lori Fagan RDMS (AB), RVS Referring Physician: MARIE Arriaga; Indications - possible radial artery harvest Z01.810 - Encounter for preprocedural cardiovascular examination Procedure Description 95505 Duplex scan of upper extremity arteries or arterial bypass grafts using B-mode, color and spectral Doppler; unilateral or limited study. Conclusions * Right. * Right radial artery mapping was not performed due to recent heart catheterization. * Left. * Left palmar arch is incomplete. * Left radial artery is patent with measurements as listed. Recommendations * Please see measurements and note that left palmar arch is incomplete. ------- Name Value ------- PSV ------- Left Distal Brachial PSV 158 cm/s Left Distal Radial PSV 68 cm/s Left Distal Ulnar PSV 86 cm/s Left Artery AP ------- Left Prox Radial 3.4 mm Left Mid Radial 3.3 mm Left Distal Radial 2.5 mm ------- Name Value ------- EDV ------- Left Distal Brachial EDV 0 cm/s Left Distal Radial EDV 0 cm/s Left Distal Ulnar EDV 0 cm/s Risk Factors Patient has a history of hypertension, CHF, diabetes, CAD and tobacco use-current. . Report Signatures Finalized by Kristy Parker MD on 10/27/2024 11:50 AM [employer] , Kristy Gardiner MD - 10/27/2024 Patient Info Name: ENOC FERNANDES Age: 78 years : 1945 Gender: Male Exam Date: 10/27/2024 11:23 AM Patient Status: Outpatient Learning And Development Consultant: Lori Fagan RDMS (AB), RVS Referring Physician: MARIE Arriaga; Indications - possible radial artery harvest Z01.810 - Encounter for preprocedural cardiovascular examination Procedure Description 89291 Duplex scan of upper extremity arteries or arterial bypass grafts using B-mode, color and spectral Doppler; unilateral or limited study. Conclusions * Right. * Right radial artery mapping was not performed due to recent heart catheterization. * Left. * Left palmar arch is incomplete. * Left radial artery is patent with measurements as listed. Recommendations * Please see measurements and note that left palmar arch is incomplete. ------- Name Value ------- PSV ------- Left Distal Brachial PSV 158 cm/s Left Distal Radial PSV 68 cm/s Left Distal Ulnar PSV 86 cm/s Left Artery AP ------- Left Prox Radial 3.4 mm Left Mid Radial 3.3 mm Left Distal Radial 2.5 mm ------- Name Value ------- EDV ------- Left Distal Brachial EDV 0 cm/s Left Distal Radial EDV 0 cm/s Left Distal Ulnar EDV 0 cm/s Risk Factors Patient has a history of hypertension, CHF, diabetes, CAD and tobacco use-current. . Report Signatures Finalized by Kristy Parker MD on 10/27/2024 11:50 AM [facility] US SAPHENOUS VEIN MAPon 12-2 US SAPHENOUS VEIN MAP Patient Info Name: ENOC FERNANDES Age: 78 years : 1945 Gender: Male Exam Date: 10/27/2024 11:13 AM Patient Status: Outpatient Learning And Development Consultant: Lori Fagan RDMS (AB), RVS Referring Physician: MARIE Arriaga; Indications - GSV harvest Z01.810 - Encounter for preprocedural cardiovascular examination Procedure Description 17964 Duplex examination using B-mode, color and spectral Doppler of extremity veins including responses to compression and other maneuvers; unilateral or limited study. Conclusions * Right and left great saphenous veins are patent with measurements as listed. * Left great saphenous vein has thickened fuentes in the distal thigh. Measurements ------- Name Value ------- Right AP ------- Right GSV Prox Thigh 3.1 mm Right GSV Mid Thigh 1.6 mm Right GSV Distal Thigh 1.2 mm Right GSV Knee 3.7 mm Right GSV Prox Calf 3.6 mm Right GSV Mid Calf 2.4 mm Right GSV Distal Calf 1.6 mm Measurements ------- Name Value ------- Left AP ------- Left GSV Prox Thigh 2.5 mm Left GSV Mid Thigh 2.6 mm Left GSV Distal Thigh 1.8 mm Left GSV Knee 1.8 mm Left GSV Prox Calf 3.3 mm Left GSV Mid Calf 2.7 mm Left GSV Distal Calf 1.9 mm Risk Factors Patient has a history of hypertension, diabetes, CHF, CAD and tobacco use-current. . Report Signatures Finalized by Kristy Parker MD on 10/27/2024 11:57 AM [facility] Ultrasound Saphenous vein ma destini 10-27-2024 Patient Info Name: ENOC FERNANDES Age: 78 years : 1945 Gender: Male Exam Date: 10/27/2024 11:13 AM Patient Status: Outpatient Learning And Development Consultant: Lori Fagan RDMS (AB), RVS Referring Physician: MARIE Arriaga; Indications - GSV harvest Z01.810 - Encounter for preprocedural cardiovascular examination Procedure Description 42971 Duplex examination using B-mode, color and spectral Doppler of extremity veins including responses to compression and other maneuvers; unilateral or limited study. Conclusions * Right and left great saphenous veins are patent with measurements as listed. * Left great saphenous vein has thickened fuentes in the distal thigh. Measurements ------- Name Value ------- Right AP ------- Right GSV Prox Thigh 3.1 mm Right GSV Mid Thigh 1.6 mm Right GSV Distal Thigh 1.2 mm Right GSV Knee 3.7 mm Right GSV Prox Calf 3.6 mm Right GSV Mid Calf 2.4 mm Right GSV Distal Calf 1.6 mm Measurements ------- Name Value ------- Left AP ------- Left GSV Prox Thigh 2.5 mm Left GSV Mid Thigh 2.6 mm Left GSV Distal Thigh 1.8 mm Left GSV Knee 1.8 mm Left GSV Prox Calf 3.3 mm Left GSV Mid Calf 2.7 mm Left GSV Distal Calf 1.9 mm Risk Factors Patient has a history of hypertension, diabetes, CHF, CAD and tobacco use-current. . Report Signatures Finalized by Kristy Parker MD on 10/27/2024 11:57 AM [facility] Kristy Parker MD - 10/27/2024 Patient Info Name: ENOC FERNANDES Age: 78 years : 1945 Gender: Male Exam Date: 10/27/2024 11:13 AM Patient Status: Outpatient Learning And Development Consultant: Lori Fagan RDMS (AB), RVS Referring Physician: MARIE Arriaga; Indications - GSV harvest Z01.810 - Encounter for preprocedural cardiovascular examination Procedure Description 48929 Duplex examination using B-mode, color and spectral Doppler of extremity veins including responses to compression and other maneuvers; unilateral or limited study. Conclusions * Right and left great saphenous veins are patent with measurements as listed. * Left great saphenous vein has thickened fuentes in the distal thigh. Measurements ------- Name Value ------- Right AP ------- Right GSV Prox Thigh 3.1 mm Right GSV Mid Thigh 1.6 mm Right GSV Distal Thigh 1.2 mm Right GSV Knee 3.7 mm Right GSV Prox Calf 3.6 mm Right GSV Mid Calf 2.4 mm Right GSV Distal Calf 1.6 mm Measurements ------- Name Value ------- Left AP ------- Left GSV Prox Thigh 2.5 mm Left GSV Mid Thigh 2.6 mm Left GSV Distal Thigh 1.8 mm Left GSV Knee 1.8 mm Left GSV Prox Calf 3.3 mm Left GSV Mid Calf 2.7 mm Left GSV Distal Calf 1.9 mm Risk Factors Patient has a history of hypertension, diabetes, CHF, CAD and tobacco use-current. . Report Signatures Finalized by Kristy Parker MD on 10/27/2024 11:57 AM [facility] Ultrasound doppler carotidon 10-27-2024 Patient Info Name: ENOC FERNANDES Age: 78 years : 1945 Gender: Male Exam Date: 10/27/2024 10:32 AM Patient Status: Outpatient Learning And Development Consultant: Lori Fagan RDMS (AB), RVS Referring Physician: MARIE Arriaga; Indications Z01.810 - Encounter for preprocedural cardiovascular examination I65.23 - Occlusion and stenosis of bilateral carotid arteries Procedure Description 03458 Duplex examination using B-mode, color and spectral Doppler of extracranial arteries; complete bilateral study. NASCET criteria is used when performing imaging correlation with carotid duplex interpretation. Conclusions * Right. * Less than 50% stenosis in the right internal carotid artery. * Percent stenosis may be underestimated due to calcific shadowing. * Right innominate artery is not well visualized due depth of vessel. * Elevated velocity suggestive of stenosis in the right subclavian and external carotid arteries. There are post stenotic waveforms noted in the distal subclavian artery. * No evidence of hemodynamically significant stenosis in the right common carotid artery, however abnormal waveforms are noted.. * Right vertebral artery is patent with antegrade flow, however, abnormal waveforms are noted. * Left. * 50-69% stenosis in the left internal carotid artery per strict lab criteria, however, velocities of 623 cm/s with calcification are noted. Based on dey scale and color doppler, greater than 70% stenosis is suggested. Unable to obtain end diastolic velocity. * Percent stenosis may be underestimated due to calcific shadowing. * Elevated velocities noted in the left subclavian artery, however with triphasic waveforms. * Elevated velocity suggestive of stenosis in the left external carotid artery. * No evidence of hemodynamically significant stenosis in the left common carotid artery. * Left vertebral artery is patent with antegrade flow, however elevated velocities were noted. Recommendations * There appears to be a tight stenosis of the left internal carotid artery at the carotid bifurcation associated with dense atherosclerotic plaque. Advanced carotid imaging appears to be warranted. Clinical correlation is advised. Measurements ------- Name Value ------- Right PSV ------- Right Prox CCA PSV 138 cm/s Right Mid CCA PSV 155 cm/s Right Distal CCA PSV 120 cm/s Right Prox ICA PSV 170 cm/s Right Mid ICA PSV 142 cm/s Right Distal ICA PSV 93 cm/s Right ECA PSV 273 cm/s Right Vert PSV 20 cm/s Right Prox SCA PSV 296 cm/s Rt ICA/CCA Ratio 1.4 Measurements ------- Name Value ------- Right EDV ------- Right Prox CCA EDV 0 cm/s Right Mid CCA EDV 0 cm/s Right Distal CCA EDV 0 cm/s Right Prox ICA EDV 25 cm/s Right Mid ICA EDV 18 cm/s Right Distal ICA EDV 16 cm/s Right ECA EDV 0 cm/s Right Vert EDV 5 cm/s Right Prox SCA EDV 0 cm/s Measurements ------- Name Value ------- Left PSV ------- Left Prox CCA PSV 150 cm/s Left Mid CCA PSV 135 cm/s Left Prox ICA PSV 623 cm/s Left Mid ICA PSV 199 cm/s Left Distal ICA PSV 173 cm/s Left ECA PSV 595 cm/s Left Vert PSV 160 cm/s Left Prox SCA PSV 327 cm/s Measurements ------- Name Value ----- (more content not included)... FUJI Kristy Gonzalez MD - 10/27/2024 Patient Info Name: ENOC FERNANDES Age: 78 years : 1945 Gender: Male Exam Date: 10/27/2024 10:32 AM Patient Status: Outpatient Learning And Development Consultant: Lori Fagan RDMS (AB), RVS Referring Physician: MARIE Arriaga; Indications Z01.810 - Encounter for preprocedural cardiovascular examination I65.23 - Occlusion and stenosis of bilateral carotid arteries Procedure Description 70142 Duplex examination using B-mode, color and spectral Doppler of extracranial arteries; complete bilateral study. NASCET criteria is used when performing imaging correlation with carotid duplex interpretation. Conclusions * Right. * Less than 50% stenosis in the right internal carotid artery. * Percent stenosis may be underestimated due to calcific shadowing. * Right innominate artery is not well visualized due depth of vessel. * Elevated velocity suggestive of stenosis in the right subclavian and external carotid arteries. There are post stenotic waveforms noted in the distal subclavian artery. * No evidence of hemodynamically significant stenosis in the right common carotid artery, however abnormal waveforms are noted.. * Right vertebral artery is patent with antegrade flow, however, abnormal waveforms are noted. * Left. * 50-69% stenosis in the left internal carotid artery per strict lab criteria, however, velocities of 623 cm/s with calcification are noted. Based on dey scale and color doppler, greater than 70% stenosis is suggested. Unable to obtain end diastolic velocity. * Percent stenosis may be underestimated due to calcific shadowing. * Elevated velocities noted in the left subclavian artery, however with triphasic waveforms. * Elevated velocity suggestive of stenosis in the left external carotid artery. * No evidence of hemodynamically significant stenosis in the left common carotid artery. * Left vertebral artery is patent with antegrade flow, however elevated velocities were noted. Recommendations * There appears to be a tight stenosis of the left internal carotid artery at the carotid bifurcation associated with dense atherosclerotic plaque. Advanced carotid imaging appears to be warranted. Clinical correlation is advised. Measurements ------- Name Value ------- Right PSV ------- Right Prox CCA PSV 138 cm/s Right Mid CCA PSV 155 cm/s Right Distal CCA PSV 120 cm/s Right Prox ICA PSV 170 cm/s Right Mid ICA PSV 142 cm/s Right Distal ICA PSV 93 cm/s Right ECA PSV 273 cm/s Right Vert PSV 20 cm/s Right Prox SCA PSV 296 cm/s Rt ICA/CCA Ratio 1.4 Measurements ------- Name Value ------- Right EDV ------- Right Prox CCA EDV 0 cm/s Right Mid CCA EDV 0 cm/s Right Distal CCA EDV 0 cm/s Right Prox ICA EDV 25 cm/s Right Mid ICA EDV 18 cm/s Right Distal ICA EDV 16 cm/s Right ECA EDV 0 cm/s Right Vert EDV 5 cm/s Right Prox SCA EDV 0 cm/s Measurements ------- Name Value ------- Left PSV ------- Left Prox CCA PSV 150 cm/s Left Mid CCA PSV 135 cm/s Left Prox ICA PSV 623 cm/s Left Mid ICA PSV 199 cm/s Left Distal ICA PSV 173 cm/s Left ECA PSV 595 cm/s Left Vert PSV 160 cm/s Left Prox SCA PSV 327 cm/s Measurements ------- Name Value ------- Left EDV ------- Left Prox CCA EDV 2 cm/s Left Mid CCA EDV 16 cm/s Left Prox ICA EDV 0 cm/s Left Mid ICA EDV 26 cm/s Left Distal ICA EDV 15 cm/s Left ECA EDV 0 cm/s Left Vert EDV 33 cm/s Left Prox SCA EDV 0 cm/s Right Findings * Calcific plaque noted in the right common carotid artery. * Calcific plaque noted in the right internal carotid artery. * Calcific plaque noted in the right external carotid artery. * Calcific plaque noted in the right subclavian artery. Left Findings * Calcific plaque noted in the left common carotid artery. * Calcific plaque noted in the left internal carotid artery. * Calcific plaque noted in the left external carotid artery. * Calcific plaque noted in the left subclavian artery. Prior Study Date: 02/04/2023 Risk Factors Patient has a (more content not included)... [facility] Urinalysison 10-27-2024 Bacteria Auto Ql (U) Rare Abnormal None Seen /hpf [facility] Bilirubin Ql (U) Negative Negative [facility] th Clarity Refractometry automated (U) Clear Clear [facility] Color (U) Colorless Colorless, Yellow [facility] Epithelial cells.squamous Auto (Urine sed) [#/Area] [facility] Glucose Auto test strip (U) [Mass/Vol] 150 mg/dL Abnormal Negative, >=1000 [facility] Hemoglobin Auto test strip Ql (U) Negative Negative [facility] Hyaline casts Auto (Urine sed) [#/Area] 0-2 [facility] Interpretation and review of laboratory results Abnormal [facility] Ketones (U) [Mass/Vol] Negative Negative mg/d L [facility] Leukocyte esterase Auto test strip Ql (U) Negative Negative [facility] h Mucus Auto (Urine sed) [#/Area] Rare None Seen, Rare /lpf [facility] Nitrite Auto test strip Ql (U) Negative Negative [facility] pH (U) 5 [pH] 5.0 - 7.0 [facility] Protein (U) [Mass/Vol] Negative Negative mg/d L [facility] RBC Auto (Urine sed) [#/Area] 1 [facility] Specific gravity (U) [Rel density] 1.017 1.005 - 1.025 [facility] Urobilinogen (U) [Mass/Vol] mg/dL NINF - 2.0 mg/dL [facility] WBC Auto (Urine sed) [#/Area] 1 [facility] Microscopic examination is performed on all urinalysis samples and only positive findings are reported. The test for blood on the chemical analytic portion of urinalysis may also be positive due to hemoglobinuria and myoglobinuria and if red blood cells are present they are quantified by microscopic examination. [facility] XR CHEST AP/PA AND LATon XR CHEST AP/PA AND LAT EXAMINATION: XR CHEST AP/PA AND LAT 10/27/2024 12:29 pm HISTORY: ORDERING SYSTEM PROVIDED HISTORY: pre-op, TECHNOLOGIST PROVIDED HISTORY: Illness/Other Reason for exam: pre op Cancer History: . Surgery, RadiationHistory: cardiac catheterization Encounter Type: Initial Additional signs and symptoms: . ORDERING SYSTEM PROVIDED DIAGNOSIS CODES: J43.9 Pulmonary emphysema, unspecified emphysema type (HCC) R94.39 Cardiovascular stress test abnormal R53.83 Fatigue, unspecified type R06.02 SOB (shortness of breath) COMPARISON: Chest x-ray November 27, 2023. TECHNIQUE: Frontal and lateral views of the chest. FINDINGS: Cardiac silhouette and mediastinal contours are within normal limits without sclerotic plaquing of the thoracic aortic arch. Resolution of the bilateral airspace disease from the prior study with several strand-like opacity in the bases consistent with atelectasis. No pneumothorax or sizable pleural effusion. IMPRESSION: Mild bilateral lower lung atelectasis. [employer] Workstation ID: [id number] Dictated by: KAHLIL VARGHESE on WedOct 27, 2024 1:12:55 PM EST Transcribed by: DASIA ENGLAND on WedOct 27, 2024 1:21:29 PM EST Finalized by: KAHLIL VARGHESE on WedOct 27, 2024 3:01:09 PM EST Normal [facility] [facility] Comment on above: Order Comment: Injur y/Trauma or Illness?:Illness/OtherHow long have you had these symptoms (acute/chronic)?:AcuteReason for exam?:pre opHistory of cancer?:.Surgeries, chemotherapy, or radiation?:cardiac catheterizationType of Exam?:InitialAdditional signs and symptoms?:. XR Chest PA and Lateral and AP lateral-decubituson 10-27-2024 Mild bilateral lower lung atelectasis. [employer] Workstation ID: [id number] GE RIS EXAMINATION: XR CHEST AP/PA AND LAT 10/27/2024 12:29 pm HISTORY: ORDERING SYSTEM PROVIDED HISTORY: pre-op, TECHNOLOGIST PROVIDED HISTORY: Illness/Other Reason for exam: pre op Cancer History: . Surgery, RadiationHistory: cardiac catheterization Encounter Type: Initial Additional signs and symptoms: . ORDERING SYSTEM PROVIDED DIAGNOSIS CODES: J43.9 Pulmonary emphysema, unspecified emphysema type (HCC) R94.39 Cardiovascular stress test abnormal R53.83 Fatigue, unspecified type R06.02 SOB (shortness of breath) COMPARISON: Chest x-ray November 27, 2023. TECHNIQUE: Frontal and lateral views of the chest. FINDINGS: Cardiac silhouette and mediastinal contours are within normal limits without sclerotic plaquing of the thoracic aortic arch. Resolution of the bilateral airspace disease from the prior study with several strand-like opacity in the bases consistent with atelectasis. No pneumothorax or sizable pleural effusion. Kahlil Tyler, DO - 10/27/2024 EXAMINATION: XR CHEST AP/PA AND LAT 10/27/2024 12:29 pm HISTORY: ORDERING SYSTEM PROVIDED HISTORY: pre-op, TECHNOLOGIST PROVIDED HISTORY: Illness/Other Reason for exam: pre op Cancer History: . Surgery, RadiationHistory: cardiac catheterization Encounter Type: Initial Additional signs and symptoms: . ORDERING SYSTEM PROVIDED DIAGNOSIS CODES: J43.9 Pulmonary emphysema, unspecified emphysema type (HCC) R94.39 Cardiovascular stress test abnormal R53.83 Fatigue, unspecified type R06.02 SOB (shortness of breath) COMPARISON: Chest x-ray November 27, 2023. TECHNIQUE: Frontal and lateral views of the chest. FINDINGS: Cardiac silhouette and mediastinal contours are within normal limits without sclerotic plaquing of the thoracic aortic arch. Resolution of the bilateral airspace disease from the prior study with several strand-like opacity in the bases consistent with atelectasis. No pneumothorax or sizable pleural effusion. IMPRESSION: Mild bilateral lower lung atelectasis. [employer] Workstation ID: [id number] [facility] Radiology Study observation (narrative) [facility] XR Chest PA and Lateral and AP lateral-decubitusOrdered By: Kahlil Varghese on 10-27-2024 [facility] Work Phone: aPTT Coag (Bld) [Time]on Interpretation and review of laboratory results Abnormal [facility] Therapeutic range fo r APTT's is 68 - 104 seconds [facility] BASIC METABOLIC PANELon 10-01 Calcium [Mass/Vol] 8.9 mg/dL Normal 8.6-10.3 [facility] Comment on above: Order Comment: FASTI NG:UNKNOWN FASTING: UNKNOWN Performed By: #### 6 399, [id number] #### [facility] [address], [address] [place] [address] Turning Machine Operator: Jadon Velez MD Chloride [Moles/Vol] 106 mmol/L Normal 98-[address] [facility] Comment on above: Order Comment: FASTI NG:UNKNOWN FASTING: UNKNOWN Performed By: #### 6 399, 43053 #### [facility] [place] [address] Turning Machine Operator: Jadon Velez MD CO2 [Moles/Vol] 22 mmol/L Normal 20-32 [facility] Comment on above: Order Comment: FASTI NG:UNKNOWN FASTING: UNKNOWN Performed By: #### 6 399, 32914 #### [facility] [place] [address] Turning Machine Operator: Jadon Velez MD Creatinine [Mass/Vol] 2.36 mg/dL High 0.70-1.22 [facility] [employer] Comment on above: Order Comment: FASTI NG:UNKNOWN FASTING: UNKNOWN Performed By: #### 6 399, 88324 #### [facility] [place] [address] Turning Machine Operator: Jadon Velez MD GFR/1.73 sq M.predicted among non-blacks MDRD (S/P/Bld) [Vol rate/Area] 27 mL/min/{1.73_m2} Low > OR = 60 [facility] Comment on above: Order Comment: FASTI NG:UNKNOWN FASTING: UNKNOWN Performed By: #### 6 399, 39163 #### [facility] [place] [address] Turning Machine Operator: Jadon Velez MD Glucose [Mass/Vol] 316 mg/dL High 65-99 [facility] Comment on above: Order Comment: FASTI NG:UNKNOWN FASTING: UNKNOWN Result Comment: Fasting reference interval For someone without known diabetes, a glucose value >125 mg/dL indicates that they may have diabetes and this should be confirmed with a follow-up test. Performed By: #### 6 399, 03948 #### [facility] [address], [address] [place] [address] Turning Machine Operator: Jadon Velez MD Potassium [Moles/Vol] 5.6 mmol/L High 3.5-5.3 [facility] [employer] Comment on above: Order Comment: FASTI NG:UNKNOWN FASTING: UNKNOWN Performed By: #### 6 399, 68858 #### [facility] [address], [address] [place] [address] Turning Machine Operator: Jadon Velez MD Sodium [Moles/Vol] 137 mmol/L Normal 135-146 [facility] Comment on above: Order Comment: FASTI NG:UNKNOWN FASTING: UNKNOWN Performed By: #### 6 399, 91048 #### [facility] [address], [address] [place] [address] Turning Machine Operator: Jadon Velez MD Urea nitrogen [Mass/Vol] 66 mg/dL High 7-25 [facility] Comment on above: Order Comment: FASTI NG:UNKNOWN FASTING: UNKNOWN Performed By: #### 6 399, 80574 #### [facility] [place] [address] Turning Machine Operator: Jadon Velez MD Urea nitrogen/Creatinine [Mass ratio] 28 mg/mg High 6- [facility] Comment on above: Order Comment: FASTI NG:UNKNOWN FASTING: UNKNOWN Performed By: #### 6 399, 07103 #### [facility] [place] [address] Turning Machine Operator: Jadon Velez MD CBC (INCLUDES DIFF/PLT)on Basophils (Bld) [#/Vol] 0.213 10*3/uL High 0-200 [facility] Comment on above: Performed By: #### 6 399, 52257 #### [facility] of [address], [address] [place] [address] Turning Machine Operator: Jadon Velez MD Basophils/100 WBC (Bld) 2.6 % Normal [facility] Comment on above: Performed By: #### 6 399, 48123 #### [facility] of [address], [address] [place] [address] Turning Machine Operator: Jadon Velez MD Eosinophils (Bld) [#/Vol] 0.5 10*3/uL Normal 15-500 [facility] Comment on above: Performed By: #### 6 399, 50872 #### [facility] of [address], [address] [place] [address] Turning Machine Operator: Jadon Velez MD Eosinophils/100 WBC (Bld) 6.1 % Normal [facility] Comment on above: Performed By: #### 6 399, 19525 #### [facility] of [place] [address] Turning Machine Operator: Jadon Velez MD Erythrocyte distribution width (RBC) [Ratio] 12.9 % Normal 11.0-15.0 [facility] Comment on above: Performed By: #### 6 399, 37869 #### [facility] of [place] [address] Turning Machine Operator: Jadon Velez MD Hematocrit (Bld) [Volume fraction] 33.8 % Low 38.5-50.0 [facility] Comment on above: Performed By: #### 6 399, 19525 #### [facility] of [place] [address] Turning Machine Operator: Jadon Velez MD Hemoglobin (Bld) [Mass/Vol] 10.9 g/dL Low 13.2-17.1 [facility] Comment on above: Performed By: #### 6 399, 66102 #### [facility] of [place] [address] Turning Machine Operator: Jadon Velez MD Lymphocytes (Bld) [#/Vol] 2.28 10*3/uL Normal 850-3900 [facility] Comment on above: Performed By: #### 6 399, 15199 #### [facility] [place] [address] Turning Machine Operator: Jadon Velez MD Lymphocytes/100 WBC (Bld) 27.8 % Normal [facility] Comment on above: Performed By: #### 6 399, 75789 #### [facility] [place] [address] Turning Machine Operator: Jadon Velez MD MCH (RBC) [Entitic mass] 30.9 pg Normal 27.0-33.0 [facility] Comment on above: Performed By: #### 6 399, 10299 #### [facility] [place] [address] Turning Machine Operator: Jadon Velez MD MCHC (RBC) [Mass/Vol] 32.2 g/dL Normal 32.0-36.0 [facility] Comment on above: Result Comment: For adults, a slight decrease in the calculated MCHC value (in the range of 30 to 32 g/dL) is most likely not clinically significant; however, it should be interpreted with caution in correlation with other red cell parameters and the patient's clinical condition. Performed By: #### 6 399, 03668 #### [facility] [place] [address] Turning Machine Operator: Jadon Velez MD MCV (RBC) [Entitic vol] 95.8 fL Normal 80.0-100.0 [facility] Comment on above: Performed By: #### 6 399, 39944 #### [facility] [place] [address] Turning Machine Operator: Jadon Velez MD Monocytes (Bld) [#/Vol] 0.631 10*3/uL Normal 200-950 [facility] Comment on above: Performed By: #### 6 399, 26655 #### [facility] [place] [address] Turning Machine Operator: Jadon Velez MD Monocytes/100 WBC (Bld) 7.7 % Normal [facility] Comment on above: Performed By: #### 6 399, 13928 #### [facility] of [place] [address] Turning Machine Operator: Jadon Velez MD Neutrophils (Bld) [#/Vol] 4.576 10*3/uL Normal 9646-3281 [facility] Comment on above: Performed By: #### 6 399, 26140 #### [facility] of [place] [address] Turning Machine Operator: Jadon Velez MD Neutrophils/100 WBC (Bld) 55.8 % Normal [facility] Comment on above: Performed By: #### 6 399, 22518 #### [facility] [place] [address] Turning Machine Operator: Jadon Velez MD Platelet mean volume (Bld) [Entitic vol] 11.5 fL Normal 7.5-12.5 [facility] Comment on above: Performed By: #### 6 399, 03878 #### [facility] [place] [address] Turning Machine Operator: Jadon Velez MD Platelets (Bld) [#/Vol] 289 10*3/uL Normal 140-400 [facility] Comment on above: Performed By: #### 6 399, 70188 #### [facility] of [place] [address] Turning Machine Operator: Jadon Velez MD RBC (Bld) [#/Vol] 3.53 10*6/uL Low 4.20-5.80 [facility] Comment on above: Performed By: #### 6 399, 03447 #### [facility] of [place] [address] Turning Machine Operator: Jadon Velez MD WBC (Bld) [#/Vol] 8.2 10*3/uL Normal 3.8-10.8 [facility] Comment on above: Performed By: #### 6 096, 28864 #### [facility] [address], [address] [place] [address] Turning Machine Operator: Jadon Velez MD Lipid Profileon 09-21-2024 Cholesterol [Mass/Vol] 148 mg/dL Normal [facility] Comment on above: Result Comment: <200 mg/dL Desirable 200-240 mg/dL Borderline >240 mg/dL High Risk Performed By: #### L 501.080 #### [facility] [address] [place], [address] Cholesterol in HDL [Mass/Vol] 49 mg/dL Normal [facility] Comment on above: Result Comment: The drugs N-Acetylcysteine and Metamizole may falsely depress this assay. Reference Range HDL <40 mg/dL Low HDL Cholesterol HDL >or= 60 mg/dL High HDL Cholesterol Performed By: #### L 501.080 #### [facility] [address] [place], [address] Cholesterol in LDL [Mass/Vol] 87 mg/dL Normal 0-130 [facility] Comment on above: Performed By: #### L 501.080 #### [facility] [address] [place], [address] Cholesterol in VLDL [Mass/Vol] 12 mg/dL Normal 5-40 [facility] Comment on above: Performed By: #### L 501.080 #### [facility] [address] [place], [address] Triglyceride [Mass/Vol] 58 mg/dL Normal [facility] Comment on above: Result Comment: The drugs N-Acetylcysteine and Metamizole may falsely depress this assay. Serum Triglycerides Reference Interval Normal <150 mg/dL Borderline high 150 - 199 mg/dL High 200 - 499 mg/dL Very High > or = 500 mg/dL Performed By: #### L 501.080 #### [facility] [address] [place], [address] Basic Metabolic Profile (BMP )on 09-15-2024 BUN Normal 7-18 [facility] Comment on above: Result Comment: Canc elled via OM: Order cancelled - Patient discharged Performed By: #### L 500.2500, L100.0100 #### [facility] [address] [place], [address] BUN/CRE Normal 10-20 [facility] Comment on above: Result Comment: Canc elled via OM: Order cancelled - Patient discharged Performed By: #### L 500.2500, L100.0100 #### [facility] [address] [place], [address] CA,Total Normal 8.5-10.1 [facility] Comment on above: Result Comment: Canc elled via OM: Order cancelled - Patient discharged Performed By: #### L 500.2500, L100.0100 #### [facility] [address] [place], [address] CL Normal 98-107 [facility] Comment on above: Result Comment: Canc elled via OM: Order cancelled - Patient discharged Performed By: #### L 500.2500, L100.0100 #### [facility] [address] [place], [address] CO2 Normal 21.0-32.0 [facility] Comment on above: Result Comment: Canc elled via OM: Order cancelled - Patient discharged Performed By: #### L 500.2500, L100.0100 #### [facility] [address] [place], [address] CREAT,SERUM Normal 0.70-1.30 [facility] Comment on above: Result Comment: Canc elled via OM: Order cancelled - Patient discharged Performed By: #### L 500.2500, L100.0100 #### [facility] [address] [place], [address] EST GFR Normal >60 [facility] Comment on above: Result Comment: Canc elled via OM: Order cancelled - Patient discharged Performed By: #### L 500.2500, L100.0100 #### [facility] [address] [place], [address] EST GFR - AA Normal >60 [facility] Comment on above: Result Comment: Canc elled via OM: Order cancelled - Patient discharged Performed By: #### L 500.2500, L100.0100 #### [facility] [address] [place], [address] GAP Normal 5-15 [facility] Comment on above: Result Comment: Canc elled via OM: Order cancelled - Patient discharged Performed By: #### L 500.2500, L100.0100 #### [facility] [address] [place], [address] GLU Normal 74-106 [facility] Comment on above: Result Comment: Canc elled via OM: Order cancelled - Patient discharged Performed By: #### L 500.2500, L100.0100 #### [facility] [address] [place], [address] Potassium Normal 3.5-5.1 [facility] Comment on above: Result Comment: Canc elled via OM: Order cancelled - Patient discharged Performed By: #### L 500.2500, L100.0100 #### [facility] [address] [place], [address] Basic Metabolic Profile (BMP) Normal 136-145 [facility] Comment on above: Result Comment: Canc elled via OM: Order cancelled - Patient discharged Performed By: #### L 500.2500, L100.0100 #### [facility] [address] [place], [address] CBC W/Diff, Automatedon 11-1 Absolute Neut Normal 2.0-7.7 [facility] Comment on above: Result Comment: Canc elled via OM: Order cancelled - Patient discharged Performed By: #### L 500.2500, L100.0100 #### [facility] [address] [place], [address] HCT Normal 40-54 [facility] Comment on above: Result Comment: Canc elled via OM: Order cancelled - Patient discharged Performed By: #### L 500.2500, L100.0100 #### [facility] [address] [place], [address] HGB Normal 13.0-16.5 [facility] Comment on above: Result Comment: Canc elled via OM: Order cancelled - Patient discharged Performed By: #### L 500.2500, L100.0100 #### [facility] [address] [place], [address] MCH Normal 27.0-32.0 [facility] Comment on above: Result Comment: Canc elled via OM: Order cancelled - Patient discharged Performed By: #### L 500.2500, L100.0100 #### [facility] [address] [place], [address] MCHC Normal 32-36 [facility] Comment on above: Result Comment: Canc elled via OM: Order cancelled - Patient discharged Performed By: #### L 500.2500, L100.0100 #### [facility] [address] [place], [address] MCV Normal 80-94 [facility] Comment on above: Result Comment: Canc elled via OM: Order cancelled - Patient discharged Performed By: #### L 500.2500, L100.0100 #### [facility] [address] [place], [address] NEUT% Normal 47-70 [facility] Comment on above: Result Comment: Canc elled via OM: Order cancelled - Patient discharged Performed By: #### L 500.2500, L100.0100 #### [facility] [address] [place], [address] PLT Normal 150-450 [facility] Comment on above: Result Comment: Canc elled via OM: Order cancelled - Patient discharged Performed By: #### L 500.2500, L100.0100 #### [facility] [address] [place], [address] RBC Normal 4.6-6.2 [facility] Comment on above: Result Comment: Canc elled via OM: Order cancelled - Patient discharged Performed By: #### L 500.2500, L100.0100 #### [facility] [address] [place], [address] RDW CV Normal 11.6-14.6 [facility] Comment on above: Result Comment: Canc elled via OM: Order cancelled - Patient discharged Performed By: #### L 500.2500, L100.0100 #### [facility] [address] [place], [address] RDW SD Normal 35.1-43.9 [facility] Comment on above: Result Comment: Canc elled via OM: Order cancelled - Patient discharged Performed By: #### L 500.2500, L100.0100 #### [facility] [address] [place], [address] WBC Normal 4.4-11.0 [facility] Comment on above: Result Comment: Canc elled via OM: Order cancelled - Patient discharged Performed By: #### L 500.2500, L100.0100 #### [facility] [address] [place], [address] Basic Metabolic Profile (BMP )on 09-14-2024 BUN/CRE 21.4 RATIO High 10-20 [facility] Comment on above: Performed By: #### L 100.0100, L500.2500 #### [facility] [address] [place], [address] CA,Total 8.7 mg/dL Normal 8.5-10.1 [facility] Comment on above: Performed By: #### L 100.0100, L500.2500 #### [facility] [address] [place], [address] Chloride [Moles/Vol] 104 mmol/L Normal 98-107 [facility] Comment on above: Performed By: #### L 100.0100, L500.2500 #### [facility] [address] [place], [address] CO2 [Moles/Vol] 24.0 mmol/L Normal 21.0-32.0 [facility] Comment on above: Performed By: #### L 100.0100, L500.2500 #### [facility] [address] [place], [address] Creatinine [Mass/Vol] 1.96 mg/dL High 0.70-1.30 [facility] Comment on above: Result Comment: The validity of the calculated GFR GFRAA in patients over 70 years has not been determined. Clinical correlation is essential. Performed By: #### L 100.0100, L500.2500 #### [facility] [address] [place], [address] ECRCL 28.02 ml/min Normal [facility] Comment on above: Performed By: #### L 100.0100, L500.2500 #### [facility] [address] [place], [address] EST GFR - AA 43 mL/min Low >60 [facility] Comment on above: Result Comment: Afri can Norwegian GFR Calc Performed By: #### L 100.0100, L500.2500 #### [facility] [address] [place], [address] GAP 7 Normal 5-15 [facility] Comment on above: Performed By: #### L 100.0100, L500.2500 #### [facility] [address] [place], [address] GFR/1.73 sq M.predicted among non-blacks MDRD (S/P/Bld) [Vol rate/Area] 35 mL/min/{1.73_m2} Low >60 [facility] Comment on above: Result Comment: Non- GFR Calc Performed By: #### L 100.0100, L500.2500 #### [facility] [address] [place], [address] Glucose [Mass/Vol] 292 mg/dL High 74-106 [facility] Comment on above: Result Comment: Gluc ose result greater than or equal to 200 mg/dL suggests DIABETES MELLITUS per A.D.A. criteria. Performed By: #### L 100.0100, L500.2500 #### [facility] [address] [place], [address] Potassium [Moles/Vol] 4.0 mmol/L Normal 3.5-5.1 [facility] Comment on above: Performed By: #### L 100.0100, L500.2500 #### [facility] [address] [place], [address] Sodium [Moles/Vol] 135 mmol/L Low 136-145 [facility] Comment on above: Performed By: #### L 100.0100, L500.2500 #### [facility] [address] [place], [address] Urea nitrogen [Mass/Vol] 42 mg/dL High 7-18 [facility] Comment on above: Performed By: #### L 100.0100, L500.2500 #### [facility] [address] [place], [address] Bedside Glucoseon 09-14-2024 FINGERSTICK GLU 276 mg/dL High 74-106 [facility] Comment on above: Result Comment: Dr James sim Followed Insulin Given MANAGEMENT OF PATIENT CARE PER NURSING PROTOCOL Performed By: #### L 501.080 #### [facility] [address] [place], [address] CBC W/Diff, Automatedon 11-1 Absolute Lymph 1.66 X10 3/uL Normal 0.83-4.51 [facility] Comment on above: Performed By: #### L 100.0100, L500.2500 #### [facility] [address] [place], [address] Absolute Neut 7.6 X10 3/uL Normal 2.0-7.7 [facility] Comment on above: Performed By: #### L 100.0100, L500.2500 #### [facility] [address] [place], [address] Basophils/100 WBC (Bld) 0.9 % Normal 0-1 [facility] Comment on above: Performed By: #### L 100.0100, L500.2500 #### [facility] [address] [place], [address] Eosinophils/100 WBC (Bld) 2.2 % Normal 0-5 [facility] Comment on above: Performed By: #### L 100.0100, L500.2500 #### [facility] [address] [place], [address] Erythrocyte distribution width (RBC) [Ratio] 13.4 % Normal 11.6-14.6 [facility] Comment on above: Performed By: #### L 100.0100, L500.2500 #### [facility] [address] [place], [address] Hematocrit (Bld) [Volume fraction] 32.8 % Low 40-54 [facility] Comment on above: Performed By: #### L 100.0100, L500.2500 #### [facility] [address] [place], [address] Hemoglobin (Bld) [Mass/Vol] 11.1 g/dL Low 13.0-16.5 [facility] Comment on above: Performed By: #### L 100.0100, L500.2500 #### [facility] [address] [place], [address] IG% 0.300 Normal 0.0-0.9 [facility] Comment on above: Result Comment: IG% - Immature Granulocytes (promyelocytes, myelocytes and metamyelocytes) > 1% indicates that a LEFT SHIFT is Present. Performed By: #### L 100.0100, L500.2500 #### [facility] [address] [place], [address] Lymphocytes/100 WBC (Bld) 15.7 % Low 19-41 [facility] Comment on above: Performed By: #### L 100.0100, L500.2500 #### [facility] [address] [place], [address] MCH (RBC) [Entitic mass] 30.7 pg Normal 27.0-32.0 [facility] Comment on above: Performed By: #### L 100.0100, L500.2500 #### [facility] [address] [place], [address] MCHC (RBC) [Mass/Vol] 33.8 g/dL Normal 32-36 [facility] Comment on above: Performed By: #### L 100.0100, L500.2500 #### [facility] [address] [place], [address] MCV (RBC) [Entitic vol] 90.6 fL Normal 80-94 [facility] Comment on above: Performed By: #### L 100.0100, L500.2500 #### [facility] [address] [place], [address] Monocytes/100 WBC (Bld) 9.0 % Normal 0-10 [facility] Comment on above: Performed By: #### L 100.0100, L500.2500 #### [facility] [address] [place], [address] Neutrophils/100 WBC (Bld) 71.9 % High 47-70 [facility] Comment on above: Performed By: #### L 100.0100, L500.2500 #### [facility] [address] [place], [address] Nucleated RBC (Bld) [#/Vol] 0 10*3/uL Normal 0-5 [facility] Comment on above: Performed By: #### L 100.0100, L500.2500 #### [facility] [address] [place], [address] Platelet mean volume (Bld) [Entitic vol] 11.9 fL Normal 6.2-12.0 [facility] Comment on above: Performed By: #### L 100.0100, L500.2500 #### [facility] [address] [place], [address] Platelets (Bld) [#/Vol] 186 10*3/uL Normal 150-450 [facility] Comment on above: Performed By: #### L 100.0100, L500.2500 #### [facility] [address] [place], [address] RBC (Bld) [#/Vol] 3.62 10*6/uL Low 4.6-6.2 [facility] Comment on above: Performed By: #### L 100.0100, L500.2500 #### [facility] [address] [place], [address] RDW SD 44.5 fl High 35.1-43.9 [facility] Comment on above: Performed By: #### L 100.0100, L500.2500 #### [facility] [address] [place], [address] WBC (Bld) [#/Vol] 10.5 10*3/uL Normal 4.4-11.0 [facility] Comment on above: Performed By: #### L 100.0100, L500.2500 #### [facility] [address] [place], [address] Basic Metabolic Profile (BMP )on 09-13-2024 BUN Normal 7-18 [facility] Comment on above: Result Comment: Canc elled via OM: MD Ordered Performed By: #### L 501.080 #### [facility] [address] [place], [address] BUN/CRE Normal 10-20 [facility] Comment on above: Result Comment: Canc elled via OM: MD Ordered Performed By: #### L 501.080 #### [facility] [address] [place], [address] CA,Total Normal 8.5-10.1 [facility] Comment on above: Result Comment: Canc elled via OM: MD Ordered Performed By: #### L 501.080 #### [facility] [address] [place], [address] CL Normal 98-107 [facility] Comment on above: Result Comment: Canc elled via OM: MD Ordered Performed By: #### L 501.080 #### [facility] [address] [place], [address] CO2 Normal 21.0-32.0 [facility] Comment on above: Result Comment: Canc elled via OM: MD Ordered Performed By: #### L 501.080 #### [facility] [address] [place], [address] CREAT,SERUM Normal 0.70-1.30 [facility] Comment on above: Result Comment: Canc elled via OM: MD Ordered Performed By: #### L 501.080 #### [facility] [address] [place], [address] EST GFR Normal >60 [facility] Comment on above: Result Comment: Canc elled via OM: MD Ordered Performed By: #### L 501.080 #### [facility] [address] [place], [address] EST GFR - AA Normal >60 [facility] Comment on above: Result Comment: Canc elled via OM: MD Ordered Performed By: #### L 501.080 #### [facility] [address] [place], [address] GAP Normal 5-15 [facility] Comment on above: Result Comment: Canc elled via OM: MD Ordered Performed By: #### L 501.080 #### [facility] [address] [place], [address] GLU Normal 74-106 [facility] Comment on above: Result Comment: Canc elled via OM: MD Ordered Performed By: #### L 501.080 #### [facility] [address] [place], [address] Potassium Normal 3.5-5.1 [facility] Comment on above: Result Comment: Canc elled via OM: MD Ordered Performed By: #### L 501.080 #### [facility] [address] [place], [address] Basic Metabolic Profile (BMP) Normal 136-145 [facility] Comment on above: Result Comment: Canc elled via OM: MD Ordered Performed By: #### L 501.080 #### [facility] [address] [place], [address] BUN/CRE 17.4 RATIO Normal 10-20 [facility] Comment on above: Performed By: #### L 501.080 #### [facility] [address] [place], [address] CA,Total 8.7 mg/dL Normal 8.5-10.1 [facility] Comment on above: Performed By: #### L 501.080 #### [facility] [address] [place], [address] Chloride [Moles/Vol] 105 mmol/L Normal 98-107 [facility] Comment on above: Performed By: #### L 501.080 #### [facility] [address] [place], [address] CO2 [Moles/Vol] 28.0 mmol/L Normal 21.0-32.0 [facility] Comment on above: Performed By: #### L 501.080 #### [facility] [address] [place], [address] Creatinine [Mass/Vol] 1.78 mg/dL High 0.70-1.30 [facility] Comment on above: Result Comment: The validity of the calculated GFR GFRAA in patients over 70 years has not been determined. Clinical correlation is essential. Performed By: #### L 501.080 #### [facility] [address] [place], [address] ECRCL 30.95 ml/min Normal [facility] Comment on above: Performed By: #### L 501.080 #### [facility] [address] [place], [address] EST GFR - AA 47 mL/min Low >60 [facility] Comment on above: Result Comment: Afri can Norwegian GFR Calc Performed By: #### L 501.080 #### [facility] [address] [place], [address] GAP 7 Normal 5-15 [facility] Comment on above: Performed By: #### L 501.080 #### [facility] [address] [place], [address] GFR/1.73 sq M.predicted among non-blacks MDRD (S/P/Bld) [Vol rate/Area] 39 mL/min/{1.73_m2} Low >60 [facility] Comment on above: Result Comment: Non- GFR Calc Performed By: #### L 501.080 #### [facility] [address] [place], [address] Glucose [Mass/Vol] 138 mg/dL High 74-106 [facility] Comment on above: Result Comment: Fast ing Glucose result greater than or equal to 126 mg/dL suggests DIABETES MELLITUS per A.D.A. criteria. Performed By: #### L 501.080 #### [facility] [address] [place], [address] Potassium [Moles/Vol] 3.4 mmol/L Low 3.5-5.1 [facility] Comment on above: Performed By: #### L 501.080 #### [facility] [address] [place], [address] Sodium [Moles/Vol] 140 mmol/L Normal 136-145 [facility] Comment on above: Performed By: #### L 501.080 #### [facility] [address] [place], [address] Urea nitrogen [Mass/Vol] 31 mg/dL High 7-18 [facility] Comment on above: Performed By: #### L 501.080 #### [facility] [address] [place], [address] Bedside Glucoseon 09-13-2024 FINGERSTICK GLU 281 mg/dL High 74-106 [facility] Comment on above: Result Comment: ADITI ESCOBEDO OF PATIENT CARE PER NURSING PROTOCOL Performed By: #### L 501.080 #### [facility] [address] [place], [address] FINGERSTICK GLU 179 mg/dL High 74-106 [facility] Comment on above: Result Comment: ADITI GEMENT OF PATIENT CARE PER NURSING PROTOCOL Performed By: #### L 500.2500, L100.0100 #### [facility] [address] [place], [address] FINGERSTICK GLU 234 mg/dL High 74-106 [facility] Comment on above: Result Comment: ADITI GEMENT OF PATIENT CARE PER NURSING PROTOCOL Performed By: #### L 501.080 #### [facility] [address] [place], [address] FINGERSTICK GLU 238 mg/dL High -106 [facility] Comment on above: Result Comment: ADITI GEMENT OF PATIENT CARE PER NURSING PROTOCOL Performed By: #### L 501.080 #### [facility] [address] [place], [address] FINGERSTICK GLU 126 mg/dL High -106 [facility] Comment on above: Result Comment: ADITI GEMENT OF PATIENT CARE PER NURSING PROTOCOL Performed By: #### L 501.080 #### [facility] [address] [place], [address] CBC W/Diff, Automatedon 11-1 Absolute Neut Normal 2.0-7.7 [facility] Comment on above: Result Comment: Canc elled via OM: MD Ordered Performed By: #### L 100.0100, L500.2500 #### [facility] [address] [place], [address] HCT Normal 40-54 [facility] Comment on above: Result Comment: Canc elled via OM: MD Ordered Performed By: #### L 100.0100, L500.2500 #### [facility] [address] [place], [address] HGB Normal 13.0-16.5 [facility] Comment on above: Result Comment: Canc elled via OM: MD Ordered Performed By: #### L 100.0100, L500.2500 #### [facility] [address] [place], [address] MCH Normal 27.0-32.0 [facility] Comment on above: Result Comment: Canc elled via OM: MD Ordered Performed By: #### L 100.0100, L500.2500 #### [facility] [address] [place], [address] MCHC Normal 32-36 [facility] Comment on above: Result Comment: Canc elled via OM: MD Ordered Performed By: #### L 100.0100, L500.2500 #### [facility] [address] [place], [address] MCV Normal 80-94 [facility] Comment on above: Result Comment: Canc elled via OM: MD Ordered Performed By: #### L 100.0100, L500.2500 #### [facility] [address] [place], [address] NEUT% Normal 47-70 [facility] Comment on above: Result Comment: Canc elled via OM: MD Ordered Performed By: #### L 100.0100, L500.2500 #### [facility] [address] [place], [address] PLT Normal 150-450 [facility] Comment on above: Result Comment: Canc elled via OM: MD Ordered Performed By: #### L 100.0100, L500.2500 #### [facility] [address] [place], [address] RBC Normal 4.6-6.2 [facility] Comment on above: Result Comment: Canc elled via OM: MD Ordered Performed By: #### L 100.0100, L500.2500 #### [facility] [address] [place], [address] RDW CV Normal 11.6-14.6 [facility] Comment on above: Result Comment: Canc elled via OM: MD Ordered Performed By: #### L 100.0100, L500.2500 #### [facility] [address] [place], [address] RDW SD Normal 35.1-43.9 [facility] Comment on above: Result Comment: Canc elled via OM: MD Ordered Performed By: #### L 100.0100, L500.2500 #### [facility] [address] [place], [address] WBC Normal 4.4-11.0 [facility] Comment on above: Result Comment: Canc elled via OM: MD Ordered Performed By: #### L 100.0100, L500.2500 #### [facility] [address] [place], [address] Absolute Lymph 2.32 X10 3/uL Normal 0.83-4.51 [facility] Comment on above: Performed By: #### L 501.080 #### [facility] [address] [place], [address] Absolute Neut 7.4 X10 3/uL Normal 2.0-7.7 [facility] Comment on above: Performed By: #### L 501.080 #### [facility] [address] [place], [address] Basophils/100 WBC (Bld) 0.8 % Normal 0-1 [facility] Comment on above: Performed By: #### L 501.080 #### [facility] [address] [place], [address] Eosinophils/100 WBC (Bld) 1.3 % Normal 0-5 [facility] Comment on above: Performed By: #### L 501.080 #### [facility] [address] [place], [address] Erythrocyte distribution width (RBC) [Ratio] 13.8 % Normal 11.6-14.6 [facility] Comment on above: Performed By: #### L 501.080 #### [facility] [address] [place], [address] Hematocrit (Bld) [Volume fraction] 30.7 % Low 40-54 [facility] Comment on above: Performed By: #### L 501.080 #### [facility] [address] [place], [address] Hemoglobin (Bld) [Mass/Vol] 10.4 g/dL Low 13.0-16.5 [facility] Comment on above: Performed By: #### L 501.080 #### [facility] [address] [place], [address] IG% 0.400 Normal 0.0-0.9 [facility] Comment on above: Result Comment: IG% - Immature Granulocytes (promyelocytes, myelocytes and metamyelocytes) > 1% indicates that a LEFT SHIFT is Present. Performed By: #### L 501.080 #### [facility] [address] [place], [address] Lymphocytes/100 WBC (Bld) 21.2 % Normal 19-41 [facility] Comment on above: Performed By: #### L 501.080 #### [facility] [address] [place], [address] MCH (RBC) [Entitic mass] 30.6 pg Normal 27.0-32.0 [facility] Comment on above: Performed By: #### L 501.080 #### [facility] [address] [place], [address] MCHC (RBC) [Mass/Vol] 33.9 g/dL Normal 32-36 [facility] Comment on above: Performed By: #### L 501.080 #### [facility] [address] [place], [address] MCV (RBC) [Entitic vol] 90.3 fL Normal 80-94 [facility] Comment on above: Performed By: #### L 501.080 #### [facility] [address] [place], [address] Monocytes/100 WBC (Bld) 9.3 % Normal 0-10 [facility] Comment on above: Performed By: #### L 501.080 #### [facility] [address] [place], [address] Neutrophils/100 WBC (Bld) 67.0 % Normal 47-70 [facility] Comment on above: Performed By: #### L 501.080 #### [facility] [address] [place], [address] Nucleated RBC (Bld) [#/Vol] 0 10*3/uL Normal 0-5 [facility] Comment on above: Performed By: #### L 501.080 #### [facility] [address] [place], [address] Platelet mean volume (Bld) [Entitic vol] 11.4 fL Normal 6.2-12.0 [facility] Comment on above: Performed By: #### L 501.080 #### [facility] [address] [place], [address] Platelets (Bld) [#/Vol] 168 10*3/uL Normal 150-450 [facility] Comment on above: Performed By: #### L 501.080 #### [facility] [address] [place], [address] RBC (Bld) [#/Vol] 3.40 10*6/uL Low 4.6-6.2 [facility] Comment on above: Performed By: #### L 501.080 #### [facility] [address] [place], [address] RDW SD 45.1 fl High 35.1-43.9 [facility] Comment on above: Performed By: #### L 501.080 #### [facility] [address] [place], [address] WBC (Bld) [#/Vol] 11.0 10*3/uL Normal 4.4-11.0 [facility] Comment on above: Performed By: #### L 501.080 #### [facility] [address] [place], [address] Magnesiumon 09-13-2024 Magnesium [Mass/Vol] 2.0 mg/dL Normal 1.6-2.6 [facility] Comment on above: Performed By: #### L 501.080 #### [facility] [address] [place], [address] Phosphoruson 09-13-2024 Phosphate [Mass/Vol] 3.2 mg/dL Normal 2.5-4.9 [facility] Comment on above: Performed By: #### L 501.080 #### [facility] [address] [place], [address] 12 Lead EKGon 09-12-2024 12 Lead EKG [facility] [address] [place] [address] 12 Lead EKG 09/12/24 0346 MR#: [id number] Acct: [id number] Name: ENOC FERNANDES Rep #: [id number] : 1945 78 From: Bernardo Davis MD Attending Dr: Dr. Young Koroma MD Status: ADM IN Ordering Dr: Cecilio Polanco DO Date: 09/12/24 Location: ICU Sex: M C Admitted: 11/12/24 Test Reason : DYSRHYTHMIA Blood Pressure : */* mmHG Vent. Rate : 83 BPM Atrial Rate : 83 BPM P-R Int : 150 ms QRS Dur : 78 ms QT Int : 408 ms P-R-T Axes : 47 22 77 degrees QTcB Int : 479 ms Sinus rhythm with Premature atrial complexes Nonspecific ST and T wave abnormality Abnormal ECG Confirmed by JACQUI URIBE, BERNARDO ([id number]), newspaper managing editor DANISH MALDONADO ([id number]) on 09/12/2024 6:43:17 AM Referred By: Confirmed By: BERNARDO DAVIS MD 09/12/24 0643 Date Bernardo Davis MD CC: Dr. Ryley Jeter MD; Dr. Cecilio Polanco DO; Dr. Young Koroma MD Signed Normal [facility] BNP,B-Type NATRIURETIC PEPTI Silviano 09-12-2024 Natriuretic peptide B (Bld) [Mass/Vol] 903.4 pg/mL High 0-100 [facility] Comment on above: Performed By: #### L 100.0100, L500.2500 #### [facility] [address] [place], [address] Basic Metabolic Profile (BMP )on 09-12-2024 BUN/CRE 14.5 RATIO Normal 10-20 [facility] Comment on above: Order Comment: 1Y Performed By: #### L 100.0100, L500.2500 #### [facility] [address] [place], [address] CA,Total 9.1 mg/dL Normal 8.5-10.1 [facility] Comment on above: Order Comment: 1Y Performed By: #### L 100.0100, L500.2500 #### [facility] [address] [place], [address] Chloride [Moles/Vol] 105 mmol/L Normal 98-107 [facility] Comment on above: Order Comment: 1Y Performed By: #### L 100.0100, L500.2500 #### [facility] [address] [place], [address] CO2 [Moles/Vol] 22.0 mmol/L Normal 21.0-32.0 [facility] Comment on above: Order Comment: 1Y Performed By: #### L 100.0100, L500.2500 #### [facility] [address] [place], [address] Creatinine [Mass/Vol] 1.86 mg/dL High 0.70-1.30 [facility] Comment on above: Order Comment: 1Y Result Comment: The validity of the calculated GFR GFRAA in patients over 70 years has not been determined. Clinical correlation is essential. Performed By: #### L 100.0100, L500.2500 #### [facility] [address] [place], [address] ECRCL 29.61 ml/min Normal [facility] Comment on above: Order Comment: 1Y Performed By: #### L 100.0100, L500.2500 #### [facility] [address] [place], [address] EST GFR - AA 45 mL/min Low >60 [facility] Comment on above: Order Comment: 1Y Result Comment: Afri can Norwegian GFR Calc Performed By: #### L 100.0100, L500.2500 #### [facility] [address] [place], [address] GAP 11 Normal 5-15 [facility] Comment on above: Order Comment: 1Y Performed By: #### L 100.0100, L500.2500 #### [facility] [address] [place], [address] GFR/1.73 sq M.predicted among non-blacks MDRD (S/P/Bld) [Vol rate/Area] 37 mL/min/{1.73_m2} Low >60 [facility] Comment on above: Order Comment: 1Y Result Comment: Non- GFR Calc Performed By: #### L 100.0100, L500.2500 #### [facility] [address] [place], [address] Glucose [Mass/Vol] 369 mg/dL High 74-106 [facility] Comment on above: Order Comment: 1Y Result Comment: Gluc ose result greater than or equal to 200 mg/dL suggests DIABETES MELLITUS per A.D.A. criteria. Performed By: #### L 100.0100, L500.2500 #### [facility] [address] [place], [address] Potassium [Moles/Vol] 4.1 mmol/L Normal 3.5-5.1 [facility] Comment on above: Order Comment: 1Y Performed By: #### L 100.0100, L500.2500 #### [facility] [address] [place], [address] Sodium [Moles/Vol] 138 mmol/L Normal 136-145 [facility] Comment on above: Order Comment: 1Y Performed By: #### L 100.0100, L500.2500 #### [facility] [address] [place], [address] Urea nitrogen [Mass/Vol] 27 mg/dL High 7-18 [facility] Comment on above: Order Comment: 1Y Performed By: #### L 100.0100, L500.2500 #### [facility] [address] [place], [address] Bedside Glucoseon 09-12-2024 FINGERSTICK GLU 202 mg/dL High 74-106 [facility] Comment on above: Result Comment: ADITI ESCOBEDO OF PATIENT CARE PER NURSING PROTOCOL Performed By: #### L 501.080 #### [facility] [address] [place], [address] FINGERSTICK GLU 122 mg/dL High 74-106 [facility] Comment on above: Result Comment: ADITI GEMENT OF PATIENT CARE PER NURSING PROTOCOL Performed By: #### L 500.2500, L100.0100 #### [facility] [address] [place], [address] FINGERSTICK GLU 398 mg/dL High 74-106 [facility] Comment on above: Result Comment: ADITI GEMENT OF PATIENT CARE PER NURSING PROTOCOL Performed By: #### L 500.2500, L100.0100 #### [facility] [address] [place], [address] FINGERSTICK GLU 377 mg/dL High 74-106 [facility] Comment on above: Result Comment: ADITI GEMENT OF PATIENT CARE PER NURSING PROTOCOL Performed By: #### L 500.2500, L100.0100 #### [facility] [address] [place], [address] CBC W/Diff, Automatedon 11 Absolute Lymph 2.62 X10 3/uL Normal 0.83-4.51 [facility] Comment on above: Performed By: #### L 100.0100, L500.2500 #### [facility] [address] [place], [address] Absolute Neut 19.7 X10 3/uL High 2.0-7.7 [facility] Comment on above: Performed By: #### L 100.0100, L500.2500 #### [facility] [address] [place], [address] Basophils/100 WBC (Bld) 0.7 % Normal 0-1 [facility] Comment on above: Performed By: #### L 100.0100, L500.2500 #### [facility] [address] [place], [address] Eosinophils/100 WBC (Bld) 0.8 % Normal 0-5 [facility] Comment on above: Performed By: #### L 100.0100, L500.2500 #### [facility] [address] [place], [address] Erythrocyte distribution width (RBC) [Ratio] 13.8 % Normal 11.6-14.6 [facility] Comment on above: Performed By: #### L 100.0100, L500.2500 #### [facility] [address] [place], [address] Hematocrit (Bld) [Volume fraction] 38.9 % Low 40-54 [facility] Comment on above: Performed By: #### L 100.0100, L500.2500 #### [facility] [address] [place], [address] Hemoglobin (Bld) [Mass/Vol] 13.1 g/dL Normal 13.0-16.5 [facility] Comment on above: Performed By: #### L 100.0100, L500.2500 #### [facility] [address] [place], [address] IG% 0.800 Normal 0.0-0.9 [facility] Comment on above: Result Comment: IG% - Immature Granulocytes (promyelocytes, myelocytes and metamyelocytes) > 1% indicates that a LEFT SHIFT is Present. Performed By: #### L 100.0100, L500.2500 #### [facility] [address] [place], [address] Lymphocytes/100 WBC (Bld) 10.7 % Low 19-41 [facility] Comment on above: Performed By: #### L 100.0100, L500.2500 #### [facility] [address] [place], [address] MCH (RBC) [Entitic mass] 30.6 pg Normal 27.0-32.0 [facility] Comment on above: Performed By: #### L 100.0100, L500.2500 #### [facility] [address] [place], [address] MCHC (RBC) [Mass/Vol] 33.7 g/dL Normal 32-36 [facility] Comment on above: Performed By: #### L 100.0100, L500.2500 #### [facility] [address] [place], [address] MCV (RBC) [Entitic vol] 90.9 fL Normal 80-94 [facility] Comment on above: Performed By: #### L 100.0100, L500.2500 #### [facility] [address] [place], [address] Monocytes/100 WBC (Bld) 6.2 % Normal 0-10 [facility] Comment on above: Performed By: #### L 100.0100, L500.2500 #### [facility] [address] [place], [address] Neutrophils/100 WBC (Bld) 80.8 % High 47-70 [facility] Comment on above: Performed By: #### L 100.0100, L500.2500 #### [facility] [address] [place], [address] Nucleated RBC (Bld) [#/Vol] 0 10*3/uL Normal 0-5 [facility] Comment on above: Performed By: #### L 100.0100, L500.2500 #### [facility] [address] [place], [address] Platelet mean volume (Bld) [Entitic vol] 11.4 fL Normal 6.2-12.0 [facility] Comment on above: Performed By: #### L 100.0100, L500.2500 #### [facility] [address] [place], [address] Platelets (Bld) [#/Vol] 227 10*3/uL Normal 150-450 [facility] Comment on above: Performed By: #### L 100.0100, L500.2500 #### [facility] [address] [place], [address] RBC (Bld) [#/Vol] 4.28 10*6/uL Low 4.6-6.2 [facility] Comment on above: Performed By: #### L 100.0100, L500.2500 #### [facility] [address] [place], [address] RDW SD 46.5 fl High 35.1-43.9 [facility] Comment on above: Performed By: #### L 100.0100, L500.2500 #### [facility] [address] [place], [address] WBC (Bld) [#/Vol] 24.4 10*3/uL High 4.4-11.0 [facility] Comment on above: Performed By: #### L 100.0100, L500.2500 #### [facility] [address] [place], [address] Chest 1 View (Portable)on Chest 1 View (Portable) [facility] Imaging Services [address] [place] [address] Chest 1 View (Portable) MR#: [id number] Acct: [id number] Name: ENOC FERNANDES Rep #: [id number] : 1945 M 78 From: Nacho Mabry MD PCP: Dr. Ryley Jeter MD Status: REG ER Study: Chest 1 View (Portable) Date of Exam: 09/12/24 Exam# [id number] Ordering Dr: Cecilio Polanco DO [id number] EXAM: XR CHEST, 1 VIEW CLINICAL INDICATION: chest pain TECHNIQUE: Frontal view of the chest. COMPARISON: Two-view chest 11/25/2023 FINDINGS: LUNGS AND PLEURAL SPACES: Bilateral interstitial and alveolar opacities especially in the lower lobes, with small pleural effusions. No pneumothorax. HEART: Unremarkable. Cardiac silhouette not enlarged. MEDIASTINUM: Central airways and mediastinal contour are unremarkable. BONES/JOINTS: Unremarkable. No acute fracture. SOFT TISSUES: Unremarkable. RAD/Chest 1 View (Portable) IMPRESSION: Bilateral interstitial and alveolar opacities especially in the lower lobes, with small pleural effusions. Findings may indicate edema and/or infection. Electronically Signed: Nacho Mabry MD at 3:29 EST , CC: Dr. Ryley Jeter MD; Dr. Cecilio Polanco DO Box Sealing Machine Operator: Signed Normal [facility] Echo Completeon 09-12-2024 Echo Complete [facility] Cardiovascular Services [address] [place] [address] Echo Complete 09/12/24 0818 MR#: [id number] Acct: [id number] Name: ENOC FERNANDES Rep #: [id number] : 1945 78 From: Bernardo Davis MD Attending Dr: Dr. Nancy Bhatt MD Status: ADM IN Ordering Dr: Nancy Bhatt MD Date: 09/12/24 Location: ICU Sex: M C Admitted: 09/12/24 Reason For Study: chf Procedure This was a 2D Doppler, Color Flow transthoracic echocardiogram. Exam performed portable in ICU/CCU. Left Ventricle Normal LV size. Left ventricular systolic function is normal. The left ventricular ejection fraction is 60 %. No regional wall motion abnormalities noted. Right Ventricle Normal RV size. Normal systolic function. Atria Normal left atrium. Normal right atrium. Mitral Valve There is moderate to severe mitral annular calcification. Mild (1+) eccentric mitral valve insufficiency. Tricuspid Valve Normal tricuspid valve. Mild to moderate (1-2+) tricuspid valve insufficiency. Pulmonary artery systolic pressure is 51 mmHg. Aortic Valve Trisinus/trileaflet aortic valve. Pulmonic Valve Normal pulmonic valve. Great Vessels Normal aortic root. The pulmonary artery is normal size. Inferior vena cava collapse with respiration. Pericardium/Pleural No pericardial effusion. MMode/2D Measurements Calculations LVIDd: 4.9 cm IVSd: 0.95 cm LVOT diam: 2.0 cm LVIDs: 3.3 cm LVPWd: 0.83 cm LVOT area: 3.1 cm2 RVDd: 3.2 cm FS: 32.3 % LAV(MOD-bp): 67.3 ml LVAd ap4: 28.2 cm2 SV(MOD-sp4): 44.8 ml LAV(MOD-bp) Indexed: 37.6 ml/m2 LVLd ap4: 7.7 cm SI(MOD-sp4): 25.0 ml/m2 LAV(MOD-sp2): 66.7 ml EDV(MOD-sp4): 85.6 ml LAV(MOD-sp4): 67.0 ml EDV(sp4-el): 87.9 ml LVAs ap4: 17.7 cm2 LVLs ap4: 6.7 cm ESV(MOD-sp4): 40.8 ml ESV(sp4-el): 40.1 ml EF(MOD-sp4): 52.4 % EF(sp4-el): 54.4 % SV(sp4-el): 47.8 ml LA A4 area: 21.7 cm2 LA dimension(2D): 4.6 cm RA A4 area: 15.7 cm2 TAPSE: 2.6 cm Time Measurements MV dec time: 0.15 sec Doppler Measurements Calculations MV E max brian: 122.3 cm/sec Lat Peak E' Brian: 10.2 cm/sec Med Peak E' Brian: 6.6 cm/sec MV A max brian: 141.6 cm/sec E/E' lat: 12.0 E/E' med: 18.4 MV E/A: 0.86 MV V2 max: 164.5 cm/sec MV P1/2t max brian: 139.0 cm/sec Ao V2 max: 142.0 cm/sec MV max P.9 mmHg MV P1/2t: 55.2 msec Ao max P.1 mmHg MV V2 mean: 87.4 cm/sec Ao V2 mean: 102.7 cm/sec MV mean P.7 mmHg MV dec slope: 737.6 cm/sec2 Ao mean P.7 mmHg MV V2 VTI: 43.2 cm MVA(P1/2t): 4.0 cm2 Ao V2 VTI: 31.8 cm AV (velocity ratio): 0.81 MVA(VTI): 1.8 cm2 SORAIDA(I,D): 2.5 cm2 SORAIDA(V,D): 2.6 cm2 LV V1 max: 119.0 cm/sec MR max brian: 499.9 cm/sec SV(LVOT): 79.4 ml LV V1 max P.7 mmHg MR max P.0 mmHg LV V1 mean P.4 mmHg LV V1 mean: 88.3 cm/sec LV V1 VTI: 25.7 cm PA V2 max: 137.0 cm/sec TR max brian: 347.7 cm/sec TR max P.4 mmHg ECHO/Echo Complete Interpretation Summary Normal LV size. Left ventricular systolic function is normal. The left ventricular ejection fraction is 60 %. There is moderate to severe mitral annular calcification. Pulmonary artery systolic pressure is 51 mmHg. Ordering Physician: Nancy Bhatt Performed By: Girish Hull RCS 09/12/241316 Date Bernardo Davis MD CC: Dr. Ryley Jeter MD; Dr. Nancy Bhatt MD Date Dictated: 09/12/24817 Date Transcribed: 09/12/241316 Box Sealing Machine Operator: Signed Normal [facility] Emergency Department Summary on 09-12-2024 Emergency Department Summary [facility] Medical Records Department [address] [place] [address] Emergency Department Summary 09/12/24 MR#: [id number] Acct: [id number] Name: ENOC FERNANDES Rep #: [id number] : 1945 78 From: Cecilio Polanco DO PCP: Dr. Ryley Jeter MD Status:ADM IN Location: ICU [id number] History of Present Illness Chief Complaint: Shortness of Breath Informant: patient, spouse/S.O. and EMS Narrative Narrative: 78-year-old male presenting to the emergency room with shortness of breath. Patient states that at around 2200 hrs. he suddenly began to feel short of breath and developed a cough. States that he had pneumonia and COVID at this time last year. He states he has not had any recent illnesses. He has been seeing a chief of pediatric urology in [place] for COVID related complications and he tells me he is taking metoprolol. He denies a history of congestive heart failure. No reported fevers. No known lung conditions. He was noted to be hypoxic for EMS. [facility] Medical History Pneumonia COVID Wears glasses Wears dentures Insulin dependent diabetes mellitus Prostate disease Easy bruising Back pain Dietary restriction Smoker History of pain when walking History of stress test Cardiology follow-up encounter Hypertension Home Medications ???Medication ???Instructions ???Recorded ???Last Taken ???Type amlodipine 10 mg tablet (Norvasc) 10 mg PO 1200 08/05/21 08/12/21 History aspirin 81 mg tablet,delayed 81 mg PO DAILY 08/05/21 Unknown History release insulin glargine 100 unit/mL (3 15 unit subcut QPM 08/05/21 Unknown History mL) subcutaneous pen (Lantus Solostar U-100 Insulin) insulin lispro 100 unit/mL 0 unit subcut TID SLIDING SCALE 08/05/21 Unknown History subcutaneous pen tamsulosin 0.4 mg capsule (Flomax) 0.4 mg PO .COMPLEX urination 08/05/21 Unknown History ezetimibe 10 mg tablet 10 mg PO DAILY 04/06/24 Unknown History furosemide 20 mg tablet 20 mg PO BID 04/06/24 Unknown History lisinopril 5 mg tablet 5 mg PO DAILY 04/06/24 Unknown History metoprolol succinate 25 mg 25 mg PO DAILY 04/06/24 Unknown History tablet,extended release 24 hr blood sugar diagnostic (Contour 09/12/24 Unknown History Next Test Strips) Allergy/AdvReac Type Severity Reaction Status Date / Time Corticosteroids AdvReac Other Verified 04/06/24 14:38 (Glucocorticoids) (steroids) Vaozpex-IZV-JbG Reductase AdvReac Other Verified 04/06/24 14:38 Inhibitor (Gwugyjz-Hen-Pbv Reductase Inhibitor) Surgical History Hx of cystoscopy Hx of colonoscopy Hx of left cataract extraction Hx of right cataract extraction Social History household members: spouse Smoking Status: Current every day smoker tobacco type: cigarettes alcohol intake: never ROS ROS ED Constitutional Constitutional ED: Denies chills, fever(s) or weight loss Eyes Eyes: Denies change in vision or diplopia ENT ENT ED: Denies ear pain, rhinorrhea or sore throat Cardiovascular Cardiovascular: Denies chest pain, orthopnea, palpitations or racing heartbeat Respiratory/Chest Respiratory/Chest: Reports cough, dyspnea and dyspnea on exertion; Denies orthopnea Gastrointestinal Gastrointestinal: Denies abdominal pain, diarrhea, nausea or vomiting Genitourinary Genitourinary ED: Denies dysuria, hematuria or urinary frequency Musculoskeletal Musculoskeletal: Denies arthralgias or myalgias Integumentary Denies abscess or rash Neurologic Neurologic: Denies headache(s) or weakness Psychiatric Psychiatric: Denies anxiety, depression, suicidal ideation or suicidal thoughts Endocrine Endocrinology: Denies polydipsia, polyphagia or polyuria Allergic/Immunologic Allergic/Immunologic ED: Denies mouth swelling, tongue swelling or urticaria EXAM Physical Exam Const Vital Signs: 09/12/24 02:29 09/12/24 02:37 09/12/24 02:39 Temperature 97.6 F L 97.6 F L Temperature Source Axillary Axillary Pulse Rate 118 H 111 H Respiratory Rate 30 H 28 H Respiratory Effort Short of Breath Labored Accessory Muscle Use Respiratory Pattern Blood Pressure 237/99 H 237/99 H Blood Pressure Mean 145 145 Blood Pressure Source Blood Pressure Position Blood Pressure Location Pulse Ox 98 99 Oxygen Delivery Method Non-Rebreather Non-Rebreather Oxygen Flow Rate (L/min) 25 25 Fraction of Inspired Oxygen (FIO2) 09/12/24 02:45 09/12/24 02:47 09/12/24 03:02 Temperature Temperature Source Pulse Rate 117 H 109 H Respiratory Rate 28 H 24 H Respiratory Effort Respiratory Pattern Tachypnea Tachypnea Blood Pressure Blood Pressure Mean (more content not included)... Normal [facility] Kidney and Bladderon 024 Kidney and Bladder [facility] Imaging Services [address] [place] [address] Kidney and Bladder MR#: [id number] Acct: [id number] Name: ENOC FERNANDES Rep #: [id number] : 1945 M 78 From: Dharmesh maurice MD PCP: Dr. Ryley Jeter MD Status: ADM IN Study: Kidney and Bladder Date of Exam: 09/12/24 Exam# [id number] Ordering Dr: Nancy Bhatt MD [id number] STUDY: RENAL ULTRASOUND - COMPLETE REASON FOR EXAM: Male, 78 years old. Renal failure TECHNIQUE: Ultrasound evaluation of the kidneys was performed with real-time and static chavez-scale imaging. COMPARISON: None. FINDINGS: RIGHT KIDNEY: with mild renal atrophy. The right kidney measures 7.7 cm x 4.3 cm x 4.2 cm. There is increased echotexture of the cortex of the right kidney. This most likely secondary to chronic medical renal disease. The renal cortex measures 1.0 cm. There is no right renal mass or cyst. There are no right renal calculi. There is no right hydronephrosis. DISTAL RIGHT URETER: There is non-visualization of the distal right ureter. There is no demonstrated right ureterovesical junction calculus. There is a visualized right ureteral jet. LEFT KIDNEY: Normal location of the left kidney, which is normal in size. The left kidney measures 9.6 cm x 4.9 cm x 5.5 cm. There is a normal cortex of the left kidney. The renal cortex measures 1 cm. There is no left renal mass or cyst. Findings suggestive of a 2.8 mm calculus in the midpole. There is no left hydronephrosis. DISTAL LEFT URETER: There is non-visualization of the distal left ureter. There is no demonstrated left ureterovesical junction calculus. There is a visualized left ureteral jet. BLADDER: The distended urinary bladder has a volume of 572 ml. There is a normal wall thickness of the distended urinary bladder. There is no demonstrated mass within the urinary bladder. There are no demonstrated bladder calculi. Heterogeneous enlargement of the prostate with calcifications. US/Kidney and Bladder IMPRESSION: Right renal atrophy. Small nonobstructive left intrarenal calculus. Electronically Signed: Dharmesh Barros MD at 12:57 EST Reading Location ID and State: [address] [place] [address] , Service support , CC: Dr. Ryley Jeter MD; Dr. Nancy Bhatt MD Box Sealing Machine Operator: Signed Normal [facility] L501.4020on 09-12-2024 TROPONIN-I HS 346 pg/mL Invalid Interpretation Code 3.0-78.0 [facility] Comment on above: Order Comment: 'TROP ' Serial specimen #1, #2 or #3: 3 Result Comment: Crit ical Result(s) Called at: 09:19:13 09/12/2024 by: Eve Cruz. Results read back by same. Please Note: New Test Units and Gender Specific Reference Ranges. For more information see Policy Stat Procedure [place] High Sensitivity Troponin (TNIH) and attachments. Performed By: #### L 500.2500, L100.0100 #### [facility] [address], [address] TROPONIN-I HS 205 pg/mL Invalid Interpretation Code 3.0-78.0 [facility] Comment on above: Result Comment: Crit ical Result(s) Called at: 06:27:52 09/12/2024 by: Eve Valiente. Results read back by same. Please Note: New Test Units and Gender Specific Reference Ranges. For more information see Policy Stat Procedure [place] High Sensitivity Troponin (TNIH) and attachments. Performed By: #### L 100.0100, L500.2500 #### [facility] [address] [place], [address] L501.5425on 09-12-2024 TROPONIN-I HS 57 pg/mL Normal 3.0-78.0 [facility] Comment on above: Order Comment: 1Y Result Comment: Helder francisco Note: New Test Units and Gender Specific Reference Ranges. For more information see Policy Stat Procedure [place] High Sensitivity Troponin (TNIH) and attachments. Performed By: #### L 100.0100, L500.2500 #### [facility] [address] [place], [address] Magnesiumon 09-12-2024 Magnesium [Mass/Vol] 2.1 mg/dL Normal 1.6-2.6 [facility] Comment on above: Order Comment: 1Y Performed By: #### L 100.0100, L500.2500 #### [facility] [address] [place], [address] Partial Thromboplast Timeon 09-12-2024 aPTT Coag (Bld) [Time] 35.1 s Normal 24.1-36.2 [facility] Comment on above: Performed By: #### L 100.0100, L500.2500 #### [facility] [address] [place], [address] Prothrombin Time w/INRon INR Coag (PPP) [Relative time] 1.1 {INR} Normal [facility] Comment on above: Performed By: #### L 100.0100, L500.2500 #### [facility] [address] [place], [address] PT Coag (PPP) [Time] 14.6 s Normal 11.7-14.9 [facility] Comment on above: Performed By: #### L 100.0100, L500.2500 #### [facility] [address], [address] Renal Artery Duplex Ultrasou ndon 09-12-2024 Renal Artery Duplex Ultrasound [facility] Cardi[facility] Services [address] [place] [address] Renal Artery Duplex Ultrasound 09/13/24 0801 MR#: [id number] Acct: [id number] Name: ENOC FERNANDES Rep #: [id number] : 1945 78 From: Malika Alaniz MD Attending Dr: Dr. Nancy Bhatt MD Status: ADM IN Ordering Dr: Nancy Bhatt MD Date: 09/12/24 Location: ICU Sex: M C Admitted: 09/12/24 Reason For Study: Accelerated hypertension Right Renal Artery Left Renal Artery Right renal artery ostium Left renal artery ostium 118.2/17 122.7/17.3 RSV/EDV. PSV/EDV. Right renal artery proximal Left renal artery proximal PSV/EDV 83.2/19.5 PSV/EDV. 107.4/12.6 . Right renal artery mid 89.8/21.7 Left renal artery mid 109.2/18.1 PSV/EDV. PSV/EDV . Right renal artery distal 64.4/15.8 Left renal artery distal 87.6/17.3 PSV/EDV. PSV/EDV. Right Renal Parenchyma Left Renal Parenchyma Upper Pole Medula 41.9/8.1 PSV/EDV. Left upper pole medulla 26.9/5.6 Right upper pole medulla EDR 0.2 . PSV/EDV . Right upper pole medulla R.I. Left upper pole medulla EDR 0.2 . 0.81 . Left upper pole medulla R.I. 0.79 . Upper Justin Cortx 18.3/3.4 PSV/EDV. UP Cortex 11.3/4.2 PSV/EDV. Right upper pole cortex EDR 0.2 . Left upper pole cortex EDR 0.4 . Right upper pole cortex R.I. 0.81 . Left upper pole cortex R.I. 0.63 . Right lower Pole medulla 23.9/4.8 Left lower Pole medulla 29.7/8 PSV/EDV . PSV/EDV . Right lower pole medulla EDR 0.2 . Left lower pole medulla EDR 0.3 . Right lower pole medulla R.I. Left lower pole medulla R.I. 0.73 . 0.80 . Lower Pole Cortx 20.7/4.7 PSV/EDV. Lower Pole Cortex 15.2/4.3 PSV/EDV. Left lower pole cortex EDR 0.2 . Right lower pole cortex EDR 0.3 . Left lower pole cortex R.I. 0.77 . Right lower pole cortex R.I. 0.72 . Left Renal Hilar Right Renal Hilar LT Hilar avg 162.2/32.7 PSV/EDV . Right Hilar avg 50.7/10.9 PSV/EDV. Left hilar acceleration time 70 Right hilar acceleration time 130 m/sec. m/sec. Left Renal Dimensions Right Renal Dimensions Left kidney size 9.46 cm . Right kidney size 8.24 cm . Left cortical dimension 127 cm . Right cortical dimension 1.19 cm . Aorta Proximal abdominal aorta 1.6 x 1.6 cm . Proximal abdominal aorta peak systolic velocity is 193.4 cm/sec . Distal abdominal aorta 1.54 x 1.55 cm . Distal abdominal aorta peak systolic velocity is 257.3 cm/sec . Procedures Technically difficult study. VL/Renal Artery Duplex Ultrasound Interpretation Summary Right renal artery patent with normal velocities and no evidence of stenosis. Left renal artery patent with normal velocities and no evidence of stenosis. Right renal vein patent. Left renal vein patent. Right kidney diminshed in size. Left kidney normal in size. Ordering Physician: Nancy Bhatt Referring Physician: Ryley Jeter Performed By: Geni Mcgowan RVT and Student 09/13/24 1255 Date Malika Alaniz MD CC: Dr. Ryley Jeter MD; Dr. Nancy Bhatt MD Date Dictated: 09/13/24800 Date Transcribed: 09/13/241254 Box Sealing Machine Operator: Signed Normal [facility] CBC W Auto Differential pane l (Bld)on 07-07-2024 Basophils (Bld) [#/Vol] 0.09 x10*3/uL Normal 0.00-0.10 [facility] Comment on above: Performed By: #### 5 7021-8 #### MAGGI PARNELL ([id number]) [facility] ([facility]) [address] [place] [address] 94332 Basophils/100 WBC (Bld) 1.1 % Normal 0.0-2.0 [facility] Comment on above: Performed By: #### 5 7021-8 #### MAGGI PARNELL ([id number]) [facility] ([facility]) [address] [place] [address] 37284 Eosinophils (Bld) [#/Vol] 0.43 x10*3/uL High 0.00-0.40 [facility] Comment on above: Performed By: #### 5 7021-8 #### MAGIG PARNELL ([id number]) [facility] ([facility]) [address] [place] [address] 34477 Eosinophils/100 WBC (Bld) 5.4 % Normal 0.0-6.0 [facility] Comment on above: Performed By: #### 5 7021-8 #### MAGGI PARNELL ([id number]) [facility] ([facility]) [address] [place] [address] 61288 Erythrocyte distribution width (RBC) [Ratio] 13.5 % Normal 11.5-14.5 [facility] Comment on above: Performed By: #### 5 7021-8 #### MAGGI PARNELL ([id number]) [facility] ([facility]) [address] [place] [address] 49965 Hematocrit (Bld) [Volume fraction] 43.5 % Normal 41.0-52.0 [facility] Comment on above: Performed By: #### 5 7021-8 #### MAGGI PARNELL ([id number]) [facility] ([facility]) [address] [place] [address] 99422 Hemoglobin (Bld) [Mass/Vol] 13.6 g/dL Normal 13.5-17.5 [facility] Comment on above: Performed By: #### 5 7021-8 #### MAGGI PARNELL ([id number]) [facility] ([facility]) [address] [place] [address] 52010 Immature granulocytes (Bld) [#/Vol] 0.02 x10*3/uL Normal 0.00-0.50 [facility] Comment on above: Performed By: #### 5 7021-8 #### MAGGI PARNELL ([id number]) [facility] ([facility]) [address] [place] [address] 77657 Immature granulocytes/100 WBC (Bld) 0.3 % Normal 0.0-0.9 [facility] Comment on above: Result Comment: Arielle ture Granulocyte Count (IG) includes promyelocytes, myelocytes and metamyelocytes but does not include bands. Percent differential counts (%) should be interpreted in the context of the absolute cell counts (cells/UL). Performed By: #### 5 7021-8 #### MAGGI PARNELL ([id number]) [facility] ([facility]) [address] [place] [address] 25394 Lymphocytes (Bld) [#/Vol] 2.08 x10*3/uL Normal 0.80-3.00 [facility] Comment on above: Performed By: #### 5 7021-8 #### MAGGI PARNELL ([id number]) [facility] ([facility]) [address] [place] [address] 60277 Lymphocytes/100 WBC (Bld) 26.3 % Normal 13.0-44.0 [facility] Comment on above: Performed By: #### 5 7021-8 #### MAGGI PARNELL ([id number]) [facility] ([facility]) [address] [place] [address] 01521 MCH (RBC) [Entitic mass] 30.4 pg Normal 26.0-34.0 [facility] Comment on above: Performed By: #### 5 7021-8 #### MAGGI PARNELL ([id number]) [facility] ([facility]) [address] [place] [address] 24637 MCHC (RBC) [Mass/Vol] 31.3 g/dL Low 32.0-36.0 [facility] Comment on above: Performed By: #### 5 7021-8 #### MAGGI PARNELL ([id number]) [facility] ([facility]) [address] [place] [address] 47854 MCV (RBC) [Entitic vol] 97 fL Normal 80-100 [facility] Comment on above: Performed By: #### 5 7021-8 #### MAGGI PARNELL ([id number]) [facility] ([facility]) [address] [place] [address] 89363 Monocytes (Bld) [#/Vol] 0.60 x10*3/uL Normal 0.05-0.80 [facility] Comment on above: Performed By: #### 5 7021-8 #### MAGGI PARNELL ([id number]) [facility] ([facility]) [address] [place] [address] 92657 Monocytes/100 WBC (Bld) 7.6 % Normal 2.0-10.0 [facility] Comment on above: Performed By: #### 5 7021-8 #### MAGGI PARNELL ([id number]) [facility] ([facility]) [address] [place] [address] 49567 Neutrophils (Bld) [#/Vol] 4.68 x10*3/uL Normal 1.60-5.50 [facility] Comment on above: Result Comment: Perc ent differential counts (%) should be interpreted in the context of the absolute cell counts (cells/uL). Performed By: #### 5 7021-8 #### MAGGI PARNELL ([id number]) [facility] ([facility]) [address] [place] [address] 94221 Neutrophils/100 WBC (Bld) 59.3 % Normal 40.0-80.0 [facility] Comment on above: Performed By: #### 5 7021-8 #### MAGGI PARNELL ([id number]) [facility] ([facility]) [address] [place] [address] 92594 Nucleated RBC/100 WBC (Bld) [Ratio] 0.0 /100 WBCs Normal 0.0-0.0 [facility] Comment on above: Performed By: #### 5 7021-8 #### MAGGI PARNELL ([id number]) [facility] ([facility]) [address] [place] [address] 71177 Platelets (Bld) [#/Vol] 260 x10*3/uL Normal 150-450 [facility] Comment on above: Performed By: #### 5 7021-8 #### MAGGI PARNELL ([id number]) [facility] ([facility]) [address] [place] [address] RBC (Bld) [#/Vol] 4.48 x10*6/uL Low 4.50-5.90 [facility] Comment on above: Performed By: #### 5 7021-8 #### MAGGI PARNELL ([id number]) [facility] ([facility]) [address] [place] [address] 19950 WBC (Bld) [#/Vol] 7.9 x10*3/uL Normal 4.4-11.3 [facility] Comment on above: Performed By: #### 5 7021-8 #### MAGGI PARNELL ([id number]) [facility] ([facility]) [address] [place] [address] 79411 Comprehensive metabolic 2000 panelon 07-07-2024 Albumin BCP dye [Mass/Vol] 4.3 g/dL Normal 3.4-5.0 [facility] Comment on above: Performed By: #### 2 4323-8 #### MAGGI PARNELL ([id number]) [facility] ([facility]) [address] [place] [address] 96324 ALP [Catalytic activity/Vol] 69 U/L Normal 33-136 [facility] Comment on above: Performed By: #### 2 4323-8 #### MAGGI PARNELL ([id number]) [facility] ([facility]) [address] [place] [address] ALT With P-5'-P [Catalytic activity/Vol] 8 U/L Low 10-52 [facility] Comment on above: Result Comment: Bc ents treated with Sulfasalazine may generate falsely decreased results for ALT. Performed By: #### 2 4323-8 #### MAGGI PARNELL ([id number]) [facility] ([facility]) [address] [place] [address] Anion gap [Moles/Vol] 14 mmol/L Normal 10-20 [facility] Comment on above: Performed By: #### 2 432-8 #### MAGGI PARNELL ([id number]) [facility] ([facility]) [address] [place] [address] 19490 AST With P-5'-P [Catalytic activity/Vol] 13 U/L Normal 9-39 [facility] Comment on above: Performed By: #### 2 432-8 #### MAGGI PARNELL ([id number]) [facility] ([facility]) [address] [place] [address] 91314 Bilirubin [Mass/Vol] 0.5 mg/dL Normal 0.0-1.2 [facility] Comment on above: Performed By: #### 2 4323-8 #### MAGGI PARNELL ([id number]) [facility] ([facility]) [address] [place] [address] 43516 Calcium [Mass/Vol] 9.5 mg/dL Normal 8.6-10.[address] [facility] Comment on above: Performed By: #### 2 432-8 #### MAGGI PARNELL ([id number]) [facility] ([facility]) [address] [place] [address] 70192 Chloride [Moles/Vol] 106 mmol/L Normal 98-107 [facility] Comment on above: Performed By: #### 2 432-8 #### MAGGI PARNELL ([id number]) [facility] ([facility]) [address] [place] [address] CO2 [Moles/Vol] 27 mmol/L Normal 21-32 [facility] Comment on above: Performed By: #### 2 4323-8 #### MAGGI PARNELL ([id number]) [facility] ([facility]) [address] [place] [address] 38916 Creatinine [Mass/Vol] 1.61 mg/dL High 0.50-1.30 [facility] Comment on above: Performed By: #### 2 432-8 #### MAGGI PARNELL ([id number]) [facility] ([facility]) [address] [place] [address] 48995 Glomerular filtration rate/1.73 sq M.predicted 43 mL/min/1.73m*2 Low >60 [facility] Comment on above: Result Comment: Calc ulations of estimated GFR are performed using the 2020 CKD-EPI Study Refit equation without the race variable for the IDMS-Traceable creatinine methods. https://jasn.asnjournals.org/content/early//ASN.59515 57653 Performed By: #### 2 4323-8 #### MAGGI PARNELL ([id number]) [facility] ([facility]) [facility] [place] [address] Glucose [Mass/Vol] 119 mg/dL High 74-[address] [facility] Comment on above: Performed By: #### 2 4323-8 #### MAGGI PARNELL ([id number]) [facility] ([facility]) [address] [place] [address] 51831 Potassium [Moles/Vol] 4.0 mmol/L Normal 3.5-5.3 [facility] Comment on above: Performed By: #### 2 4323-8 #### MAGGI PARNELL ([id number]) [facility] ([facility]) [address] [place] [address] 88816 Protein [Mass/Vol] 6.8 g/dL Normal 6.4-8.[address] [facility] Comment on above: Performed By: #### 2 4323-8 #### MAGGI PARNELL ([id number]) [facility] ([facility]) [address] [place] [address] 66421 Sodium [Moles/Vol] 143 mmol/L Normal 136-[address] [facility] Comment on above: Performed By: #### 2 4323-8 #### MAGGI PARNELL ([id number]) [facility] ([facility]) [address] [place] [address] 07277 Urea nitrogen [Mass/Vol] 28 mg/dL High 6-23 [facility] Comment on above: Performed By: #### 2 4323-8 #### MAGGI PARNELL ([id number]) [facility] ([facility]) [address] [place] [address] 04165 HbA1c (Bld) [Mass fraction]o n 07-07-2024 Average glucose Estimated from glycated hemoglobin (Bld) [Mass/Vol] 180 mg/dL Normal Not Established [facility] Comment on above: Order Comment: Diagn osis of Diabetes-Adults Non-Diabetic: < or = 5.6% Increased risk for developing diabetes: 5.7-6.4% Diagnostic of diabetes: > or = 6.5% Performed By: #### 4 548-4 #### ALENA Paredes ([id number]) [facility] ([facility]) [address] [place] [address] 83895 Hemoglobin A1c/Hemoglobin.to alcira 07-07-2024 HbA1c (Bld) [Mass fraction] 7.9 % High see below [facility] Comment on above: Order Comment: Diagn osis of Diabetes-Adults Non-Diabetic: < or = 5.6% Increased risk for developing diabetes: 5.7-6.4% Diagnostic of diabetes: > or = 6.5% Performed By: #### 4 548-4 #### ALENA Paredes ([id number]) [facility] ([facility]) [address] [place] [address] 45023 Phosphateon 07-07-2024 Phosphate [Mass/Vol] 3.8 mg/dL Normal 2.5-4.9 [facility] Comment on above: Result Comment: The performance characteristics of phosphorus testing in heparinized plasma have been validated by the individual laboratory site where testing is performed. Testing on heparinized plasma is not approved by the FDA; however, such approval is not necessary. Performed By: #### 2 777-1 #### MAGGI PARNELL ([id number]) [facility] ([facility]) [address] [place], [place] [address] Thyrotropinon 07-07-2024 TSH Qn 0.85 m[IU]/L Normal 0.44-3.98 [facility] Comment on above: Order Comment: TSH t esting is performed using different testing methodology at [facility] than at [facility]. Direct result comparisons should only be made within the same method. Performed By: #### 3 016-3 #### MAGGI PARNELL ([id number]) [facility] ([facility]) [address] [place], [place] [address] Thyroxine.freeon 07-07-2024 Free T4 [Mass/Vol] 1.01 ng/dL Normal 0.61-1.[address] [facility] Comment on above: Order Comment: Thyro xine Free testing is performed using different testing methodology at [facility] than at [facility]. Direct result comparisons should only be made within the same method. Biotin can cause falsely elevated free T4 results. Patients taking a Biotin dose of up to 10 mg/day should refrain from taking Biotin for 24 hours before sample collection. Patient taking a Biotin dose of >10 mg/day should consult with their physician or the laboratory before the blood draw. Performed By: #### 3 024-7 #### MAGGI PARNELL ([id number]) [facility] ([facility]) [address] [place] [address] 31172 Urateon 07-07-2024 Urate [Mass/Vol] 5.7 mg/dL Normal 4.0-7.5 [facility] Comment on above: Result Comment: Hortencia puncture immediately after or during the administration of Metamizole may lead to falsely low results. Testing should be performed immediately prior to Metamizole dosing. Performed By: #### 3 084-1 #### MAGGI PARNELL ([id number]) [facility] ([facility]) [address] [place] [address] PT D/C Summary (1)on 024 PT D/C Summary (1) [facility] Physical Therapy [facility] [address] [place] [address] / REHABILITATION SERVICES DISCHARGE SUMMARY MR#: [id number] Acct: [id number] Name: ENOC FERNANDES Rep #: [id number] : 1945 78 From: Prashant Gamboa PT, Cert. T, OCS Referring Dr.: Dr. Kayden Colon MD Status: REG RCR Insurance: [facility] SELF PAY INSURANCE Discharge Summary D/C summary: It has been my pleasure to treat ENOC FERNANDES referred by Dr. Kayden Colon MD, with the diagnosis of LUMBAR RADICULOPATHY for a total of 9 visit(s). Discharge Date: 05/17/24 Please see the following information for a summary of their discharge status. Subjective Subjective: Seen Pain Bilateral Back: Pain Intensity (Out of 10): 6 Overall Improvement % Improvement: 10 Objective Objective/Function: POSTURE: mild forward posture ,scoliosis GAIT: ambulates with mild forward posture reciprocal pattern 2 point gait slow john PALPATION: tender LS/SI NEURO: denies paresthesia/tingling ,reflexes L3-4,L4-5 ,L5-S1 1/3 FLEXABILITY: hamstrings mod tight LUMBAR ROM: flexion min loss ,extension severe loss pain side right mod ,left mod loss MMT: quads/hams 4/5 ,( peak force) hips flexion right 33.5 ,left 33.6,ankle 4/5 Goals Goal 1:: Patient to be I with HEP Goal Progress: Goal Met Goal 2:: Patient to demonstrate 50% improvement with improved function and gait Goal Progress: Progressing Goal 3:: Patient to improve lumbar ROM for function of recovery to put on shoes Goal Progress: Progressing Goal 4:: Patient to improve peak force hips by 5 -10# strength to improve function Goal Progress: Progressing Goal 5:: Patient to improve back oswestry score by 5 points to improve QOL and function Goal Progress: Progressing Plan Plan: D/C D/C Information d/c sentence: If there are questions or concerns regarding this patient's physical therapy, please feel free to call me at [phone]. Thank you for the referral of this patient. Sincerely, Prashant Gamboa PT, Cert MDT, OCS Balance/Gait/Function al tests Balance/Special Test Scores Oswestry Low Back Score: 30 Improvement % Improvement: 10 05/24/24 3379 CC: Dr. Ryley Jeter MD; Dr. Kayden Colon MD JLA Signed Normal [facility] Inital Evaluation (1) - PTon 04-19-2024 Inital Evaluation (1) - PT [facility] Physical Therapy [facility] [address] [place] [address] / REHABILITATION SERVICES INITIAL EVALUATION MR#: [id number] Acct: [id number] Name: ENOC FERNANDES Rep #: [id number] : 1945 78 From: Dheeraj Jerez PT. MD Stacy, OCS Referring Dr.: Dr. Kayden Colon MD Status: REG R Insurance: [facility] SELF PAY INSURANCE Patient's Visit Information Visit Information Visit Information: ENOC FERNANDES is a 78 year old M referred to Physical Therapy by Dr. Kayden Colon MD with a diagnosis of LUMBAR RADICULOPATHY. Date of Evaluation: 04/19/24 Physical Therapist: Prashant Gamboa PT, Cert MDT, OCS Visit Plan Frequency: 2x /Week Duration: 4 Weeks Plan: PT INTERVENTIONS LUMBAR FLEXION ,LE FLEXABILITY ,DLS ,POSTURAL EX'S AND ACTIVITY MODIFICATION Subjective Subjective: This 78 y/o male presents to physical therapy with lumbar radiculopathy. Patient has had lumbar pain with radiculopathy for many years which has been worsening. Patient seen DR Colon. Reviewed x-rays scoliosis and stenosis and and recommended PT. Also recommended pain management but patient wants to hold off pain management. Location of pain symmetrical lumbar pain and symptoms to thighs knees and ankle . Aggravating standing walking and walks with cart ,worse with bending lifting . Alleviating factors sitting. Coughing/sneezing. Bowel/bladder good. Denies paresthesia/tingling. Sleeping good. Patient has never seen pain management. Patient had COVID and pneumonia last year and was hospitalized. Patient has generalized weakness . Patient has had PT in past. Patient condition affects QOL and function, Goals to get stronger. SOCIAL: VOCATION: RETIRED Pain Bilateral Back: Pain Intensity (Out of 10): 5 Pain Intensity Range: 10 Objective Objective: POSTURE: mild forward posture ,scoliosis GAIT: ambulates with mild forward posture reciprocal pattern 2 point gait slow john PALPATION: tender LS/SI NEURO: denies paresthesia/tingling ,reflexes L3-4,L4-5 ,L5-S1 1/3 FLEXABILITY: hamstrings mod tight LUMBAR ROM: flexion mod loss ,extension severe loss pain side right mod/severe loss ,left mod loss MMT: quads/hams 4/5 ,( peak force) hips flexion right 22.1 ,left 23.2,ankle 4/5 Special Tests L/S Slump test left side: Negative L/S Slump test right side: Negative L/S Left Straight Leg Raise: Negative L/S Right Straight Leg Raise: Negative Balance/Special Test Scores Oswestry Low Back Score: 30 Goals Goal 1:: Patient to be I with HEP Goal Time Frame: 4-6 Weeks Goal 2:: Patient to demonstrate 50% improvement with improved function and gait Goal Time Frame: 4-6 Weeks Goal 3:: Patient to improve lumbar ROM for function of recovery to put on shoes Goal Time Frame: 4-6 Weeks Goal 4:: Patient to improve peak force hips by 5 -10# strength to improve function Goal Time Frame: 4-6 Weeks Goal 5:: Patient to improve back oswestry score by 5 points to improve QOL and function Goal Time Frame: 4-6 Weeks Rehabilitation Potential Physical Therapy Diagnosis: This patient has lumbar radicular symptoms with poor lumbar ROM ,weakness hips decrease gait thus impairs function and ADLS thus benefit from skilled PT Rehabilitation Potential: Good Anticipated Interventions Patient/Client Instruction: Educate patient on: Condition and Plan of Care For the Purpose of:: To decrease pain, To increase ROM, To improve muscle performance and motor function, To improve ability to perform ADL's, To increase tolerance to activity/condition/po sition, To improve ability of physical actions for home/community/work/l eisure, To improve health of tissue, To decrease soft tissue restriction, To increase flexibility/ROM, To reduce risk of recurrence and To improve tolerance to ADL's Therapeutic Exercise to Include: Strength training, Postural training, Flexibilty training and Dynamic Lumbar Stabilization Comment: BLE -HIPS For the Purpose of:: To increase ROM, To improve muscle performance and motor function, To improve ability to perform ADL's, To increase tolerance to activity/condition/po sition, To improve performance and independence with ADL's, To improve ability of physical actions for home/community/work/l eisure, To improve health of tissue, To decrease soft tissue restriction, To increase flexibility/ROM and To improve tolerance to ADL's TENS: Yes IF ES: Yes Thermo therapy (hot pack): Yes Ultrasound (thermal/non thermal): Yes For the Purpose of:: To decrease pain, To improve nutrient delivery to tissue, To increase oxygenation perfusion, To improve health of tissue and To decrease soft tissue restriction Text: Thank you for the opportunity to evaluate your patient. For Medicare and Medicare HMO plans, please review the plan of care and approve it. It will need to be FAXED BACK to us at [phone] (more content not included)... Normal [facility] L/S Spine Bending Flex/[place] 04-06-2024 L/S Spine Bending Flex/Ext [facility] [address] [place] [address] L/S Spine Bending Flex/Ext MR#: [id number] Acct: [id number] Name: ENOC FERNANDES Rep #: [id number] : 1945 M 78 From: Hiram Beauchamp MD PCP: Dr. Ryley Jeter MD Status: DEP AMB Study: L/S Spine Bending Flex/Ext Date of Exam: 04/06 Exam# [id number] Ordering Dr: Kayden Colon MD [id number] EXAM: XR LUMBOSACRAL SPINE FLEXION/EXTENSION ONLY, 2 OR 3 VIEWS CLINICAL INDICATION: lbp -- Please do flexion-extension only TECHNIQUE: Lateral flexion/extension views of the lumbar spine and sacrum. COMPARISON: 03/22/2024 FINDINGS: VERTEBRAE: There is minimal posterior spondylolisthesis of L2 on L3 of 6 mm. There is no change in alignment with flexion or extension. Preserved vertebral body height. No fracture. Preservation of the normal lumbar lordosis. No significant facet arthropathy. DISC SPACES: There is disc space narrowing at L1-2 and L2-3. GASTROINTESTINAL TRACT: Unremarkable as visualized. Included bowel gas pattern is non-obstructive. OTHER FINDINGS: Flexion and extension views are obtained. RAD/L/S Spine Bending Flex/Ext IMPRESSION: No change in alignment with flexion or extension views. There has been no change from the reference exam. Electronically Signed: Hiram Beauchamp MD at 18:21 EDT , CC: Dr. Ryley Jeter MD; Dr. Kayden Colon MD Box Sealing Machine Operator: Signed Normal [facility] Orthopedic Visit Reporton Orthopedic Visit Report [facility] [address] [place] [address] OFFICE VISIT Date of Service: 04/06/24 MR#: [id number] Acct: [id number] Name: ENOC FERNANDES Rep #: [id number] : 1945 Provider: Dr. Kayden Colon MD Age/Sex: 78/M Location: [facility] [place] Status: Signed Intake Vital Signs 08/12/21 09:11 04/06/24 14:37 Height 5 ft 7 in 5 ft 7 in Weight: 150 lb 4 oz BMI 23.5 Intake Visit Reasons: LUMBAR SPINE Accompanied by: Is patient in pain?: Yes Pain scale (1-10): 5 Allergies Corticosteroids (Glucocorticoids) (steroids) Adverse Reaction (Verified 04/06/24 14:38) Other Fqoaznw-JRW-PtU Reductase Inhibitor (Vtnyilm-Ccu-Eur Reductase Inhibitor) Adverse Reaction (Verified 04/06/24 14:38) Other Medications ???Medication ???Instructions ???Recorded ???Confirmed ???Type amlodipine 10 mg tablet (Norvasc) 10 mg PO 1200 08/05/21 04/06/24 History aspirin 81 mg tablet,delayed 81 mg PO DAILY 08/05/21 04/06/24 History release insulin glargine 100 unit/mL (3 18 unit subcut QPM 08/05/21 04/06/24 History mL) subcutaneous pen (Lantus Solostar U-100 Insulin) insulin lispro 100 unit/mL 0 unit subcut TID SLIDING SCALE 08/05/21 04/06/24 History subcutaneous pen tamsulosin 0.4 mg capsule (Flomax) 0.4 mg PO QHS 08/05/21 04/06/24 History ezetimibe 10 mg tablet 10 mg PO DAILY 04/06/24 04/06/24 History furosemide 20 mg tablet 20 mg PO BID 04/06/24 04/06/24 History lisinopril 5 mg tablet 5 mg PO DAILY 04/06/24 04/06/24 History metoprolol succinate 25 mg 25 mg PO DAILY 04/06/24 04/06/24 History tablet,extended release 24 hr PFSH Medical History (Updated 04/07/24 @ 07:[address] Kayden Colon MD) Pneumonia COVID Wears glasses Wears dentures Insulin dependent diabetes mellitus Prostate disease Easy bruising Back pain Dietary restriction Smoker History of pain when walking History of stress test Cardiology follow-up encounter Hypertension Surgical History Hx of cystoscopy Hx of colonoscopy Hx of left cataract extraction Hx of right cataract extraction Social History (Updated 04/06/24 @ 14:45 by Angeles Lin) household members: spouse Smoking Status: Current every day smoker tobacco type: cigarettes alcohol intake: never HPI LUMBAR SPINE Details: This documentation accurately reflects the service provided and the decisions made by me, Dr. Kayden Colon MD 04/06/24 1433. Part of today???s visit was documented by Angeles Caro ATC, acting as scribe. ENOC FERNANDES is a 78 year old M here today for lumbar spine pain. Patient states the back has been bothering him for about 10-15 years. Patient denies any specific injury or accident that caused the pain. Patient describes most of his pain in the lumbar spine and into the hips. Patient states he had a scan done and he was told he had spinal stenosis that was pinching some nerves. He states this caused him to have a lot of back pain and sciatic type of pain. Patient states he does have arthritis in the back as well. He has done 2 different sessions of physical therapy at different locations. Patient states the physical therapy helped with his sciatic nerve pain but couldn't tell if it gave him much relief for the back pain. He states he has had massage therapy as well which helped with his muscles but states not for long. Patient states he gets a lot of weakness into the legs. He states it starts with his thighs and moves down his legs. He states by the time it gets to the lower legs he can barely walk. Patient states he does have balance issues. Patient denies numbness and tingling down into his legs. He states he does get a burning sensation down into the legs. Patient denies any injections or surgeries to the back. Patient states he takes arthritis strength Tylenol for the pain and states it is the only thing that doctors allow him to have. Patient is a diabetic. Enoc had COVID and pneumonia earlier this year and was placed on oxygen for a little while. He no longer has any breathing difficulties. His lower back pain is associated with difficulty walking distances and need for sitting down after a while usually about 1 block distance. He has type 1 diabetes which is very difficult to control and he says that it is extremely difficult for him to bring his A1c to less than 7. His symptoms seem to be worse on the right than the left. The numbness goes along the lateral thigh and lateral leg down to the ankle and foot. He has some difficulty with handwriting but denies dropping objects. He also has significant balance difficulties. Ortho Exam General General: Yes no acute distress Neurologic: Yes alert and Yes oriented x3 Spine SPINE TESTING CERVICAL THORACIC LUMBAR M (more content not included)... Normal [facility] L/S Spine Min 4 Viewson 03-02 L/S Spine Min 4 Views [facility] Imaging Services [address] [place], [place] [id number] L/S Spine Min 4 Views MR#: [id number] Acct: [id number] Name: ENOC FERNANDES Rep #: [id number] : 1945 M 78 From: Delmar Lyons MD PCP: Dr. Ryley Jeter MD Status: REG CLI Study: L/S Spine Min 4 Views Date of Exam: 03/22/24 Exam# [id number] Ordering Dr: Ryley Jeter MD [id number] STUDY: X-RAY - LUMBAR SPINE REASON FOR EXAM: Male, 78 years old. Back pain. TECHNIQUE: 4 view(s) of the lumbar spine were obtained. COMPARISON: None FINDINGS: Osteopenia. Reversal of the normal lordosis. Rotatory levoscoliosis of the lower lumbar spine. 7 mm of anterolisthesis of L3 on L2 and 3 mm of anterolisthesis of L5 on L4. Endplate concavities compatible with osteoporosis. Diffuse intervertebral disc space narrowing with osteophytes most marked at L1-2, L2-3 and L3-4. Vascular calcification. RAD/L/S Spine Min 4 Views IMPRESSION: Osteopenia, levoscoliosis and diffuse moderate to marked lumbosacral spondylosis most marked at L1-2, L2-3 and L3-4 Electronically Signed: Delmar Lyons MD at 12:39 EDT , CC: Dr. 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 Normal [facility] Albumin/Creatinineon 024 Albumin/Creatinine DL <= 20 mg/L (U) [Mass ratio] 221.6 ug/mg Creat High <30.0 [facility] Comment on above: Performed By: #### 1 4959-1 #### ALENA Paredes ([id number]) [facility] ([facility]) [address] [place] [address] Albumin/Creatinine DL <= 20 mg/L (U) [Mass ratio]on 02-07-2024 Albumin DL <= 20 mg/L (U) [Mass/Vol] 219.8 mg/L Normal Not established [facility] Comment on above: Performed By: #### 1 4959-1 #### ALENA Paredes ([id number]) [facility] ([facility]) [id number] [place] [address] Creatinine (U) [Mass/Vol] 99.2 mg/dL Normal 20.0-370.0 [facility] Comment on above: Performed By: #### 1 4959-1 #### ALENA Paredes ([id number]) [facility] ([facility]) [address] [place] [address] Comprehensive metabolic 2000 panelon 02-07-2024 Albumin BCP dye [Mass/Vol] 4.0 g/dL Normal 3.4-5.0 [facility] Comment on above: Performed By: #### 2 4323-8 #### MAGGI PARNELL ([id number]) [facility] ([facility]) [address] [place] [address] ALP [Catalytic activity/Vol] 77 U/L Normal 33-136 [facility] Comment on above: Performed By: #### 2 4323-8 #### MAGGI PARNELL ([id number]) [facility] ([facility]) [address] [place] [address]3562 ALT With P-5'-P [Catalytic activity/Vol] 7 U/L Low 10-52 [facility] Comment on above: Result Comment: Bc ents treated with Sulfasalazine may generate falsely decreased results for ALT. Performed By: #### 2 4323-8 #### MAGGI PARNELL ([id number]) [facility] ([facility]) [facility] [place] [address] Anion gap [Moles/Vol] 12 mmol/L Normal 10-20 [facility] Comment on above: Performed By: #### 2 4323-8 #### MAGGI PARNELL ([id number]) [facility] ([facility]) [facility] [place] [address] AST With P-5'-P [Catalytic activity/Vol] 14 U/L Normal 9-39 [facility] Comment on above: Performed By: #### 2 4323-8 #### MAGGI PARNELL ([id number]) [facility] ([facility]) [address] [place] [address] Bilirubin [Mass/Vol] 0.4 mg/dL Normal 0.0-1.2 [facility] Comment on above: Performed By: #### 2 4323-8 #### MAGGI PARNELL ([id number]) [facility] ([facility]) [address] [place] [address] Calcium [Mass/Vol] 9.2 mg/dL Normal 8.6-10.[address] [facility] Comment on above: Performed By: #### 2 4323-8 #### MAGGI PARNELL ([id number]) [facility] ([facility]) [address] [place] [address] 90[address] Chloride [Moles/Vol] 105 mmol/L Normal 98-107 [facility] Comment on above: Performed By: #### 2 4323-8 #### MAGGI PARNELL ([id number]) [facility] ([facility]) [address] [place] [address] CO2 [Moles/Vol] 29 mmol/L Normal 21-32 [facility] Comment on above: Performed By: #### 2 4323-8 #### MAGGI PARNELL ([id number]) [facility] ([facility]) [facility] [place] [address] Creatinine [Mass/Vol] 1.92 mg/dL High 0.50-1.30 [facility] Comment on above: Performed By: #### 2 4323-8 #### MAGGI PARNELL ([id number]) [facility] ([facility]) [address] [place] [address] Glomerular filtration rate/1.73 sq M.predicted 35 mL/min/1.73m*2 Low >60 [facility] Comment on above: Result Comment: Calc ulations of estimated GFR are performed using the 2020 CKD-EPI Study Refit equation without the race variable for the IDMS-Traceable creatinine methods. https://jasn.asnjournals.org/content/early//ASN.99645 88849 Performed By: #### 2 4323-8 #### MAGGI PARNELL ([id number]) [facility] ([facility]) [address] [place] [address] 23781 Glucose [Mass/Vol] 81 mg/dL Normal 74-[address] [facility] Comment on above: Performed By: #### 2 4323-8 #### MAGGI PARNELL ([id number]) [facility] ([facility]) [address] [place] [address]76[address] Potassium [Moles/Vol] 4.5 mmol/L Normal 3.5-5.3 [facility] Comment on above: Performed By: #### 2 4323-8 #### MAGGI PARNELL ([id number]) [facility] ([facility]) [address] [place] [address] Protein [Mass/Vol] 6.4 g/dL Normal 6.4-8.[address] [facility] Comment on above: Performed By: #### 2 4323-8 #### MAGGI PARNELL ([id number]) [facility] ([facility]) [address] [place] [address] Sodium [Moles/Vol] 141 mmol/L Normal 136-[address] [facility] Comment on above: Performed By: #### 2 4323-8 #### MAGGI PARNELL ([id number]) [facility] ([facility]) [address] [place] [address] 95681 Urea nitrogen [Mass/Vol] 29 mg/dL High 6-23 [facility] Comment on above: Performed By: #### 2 4323-8 #### MAGGI PARNELL ([id number]) [facility] ([facility]) [address] [place] [address] 33863 Basophil percentageOrdered B y: Ryley Steffany on 12-15-2023 Chloride [Moles/Vol] 109 mmol/L 98-107 [facility] Glucose [Mass/Vol] 126 mg/dL 74-106 [facility] Comment on above: Fasting Glucose resu lt greater than or equal to 126 mg/dL suggests DIABETES MELLITUS per A.D.A. criteria. Potassium [Moles/Vol] 4.1 mmol/L 3.5-5.1 [facility] Sodium [Moles/Vol] 140 mmol/L 136-145 [facility] Laboratory - Chemistry and C hemistry - challengeOrdered By: Ryley Jeter on 12-15-2023 CO2 [Moles/Vol] 29.0 mmol/L 21.0-32.0 [facility] Urea nitrogen/Creatinine [Mass ratio] 14.9 mg/mg 10-20 [facility] No Panel InformationOrdered By: Ryley Jeter on 12-15-2023 Estimated GFR (MDRD) Amer 45 mL/min >60 [facility] Comment on above: GFR Calc Estimated GFR (MDRD) Non-Af Amer 37 mL/min >60 [facility] Comment on above: Non- GFR Calc Serum or plasma calcium nikkie urement (mass/volume)Ordered By: Ryley Jeter on 12-15-2023 Calcium [Mass/Vol] 9.4 mg/dL 8.5-10.1 [facility] Serum or plasma creatinine m easurement (mass/volume)Ordered By: Ryley Jeter on 12-15-2023 Creatinine [Mass/Vol] 1.88 mg/dL 0.70-1.30 [facility] Comment on above: The validity of the calculated GFR & GFRAA in patients over 70 years has not been determined. Clinical correlation is essential. Serum or plasma urea nitroge n measurement (mass/volume)Ordered By: Ryley Jeter on 12-15-2023 Urea nitrogen [Mass/Vol] 28 mg/dL 7-18 [facility] Thin prep Papanicolaou smear with manual screeningOrdered By: Ryley Jeter on 12-15-2023 Thin prep Papanicolaou smear with manual screening 2 5-15 [facility] APTTOrdered By: Burton lr on 12-01-2023 aPTT Coag (Bld) [Time] 35 s High [facility] Basic metabolic 2000 panelon 12-01-2023 Anion gap [Moles/Vol] 10 mmol/L 10 - 20 mmol/L [facility] Calcium [Mass/Vol] 8.9 mg/dL 8.4 - 10. 2 mg/dL [facility] Chloride [Moles/Vol] 105 mmol/L 98 - 10 8 mmol/L [facility] Creatinine [Mass/Vol] 1.76 mg/dL High 0.80 - 1.30 mg/dL [facility] GFR/1.73 sq M.predicted CKD-EPI (S/P/Bld) [Vol rate/Area] 39 Low - PINF [facility] Glucose [Mass/Vol] 82 mg/dL 65 - 99 mg/dL [facility] HCO3 [Moles/Vol] 30 mmol/L 21 - 32 mmol/L [facility] Interpretation and review of laboratory results Abnormal [facility] Potassium [Moles/Vol] 3.4 mmol/L Low 3.5 - 5.1 mmol/L [facility] Sodium [Moles/Vol] 142 mmol/L 135 - 145 mmol/L [facility] Urea nitrogen [Mass/Vol] 26 mg/dL High 8 - 25 mg/dL [facility] Urea nitrogen/Creatinine [Mass ratio] 14.8 mg/mg 10.0 - 20.0 [facility] CBC Auto Differentialon 11-03 Basophils (Bld) [#/Vol] 0.06 10*3/uL [facility] Basophils/100 WBC (Bld) 0.7 % [facility] Eosinophils (Bld) [#/Vol] 0.61 10*3/uL High [facility] Eosinophils/100 WBC (Bld) 7.4 % [facility] Erythrocyte distribution width (RBC) [Entitic vol] 13.3 % 11.6 - 14.8 % [facility] Hematocrit (Bld) [Volume fraction] 36.6 % Low 41.0 - 53.0 % [facility] Hemoglobin (Bld) [Mass/Vol] 12.0 g/dL Low 13.5 - 17.5 g/dL [facility] Immature granulocytes (Bld) [#/Vol] 0.02 10*3/uL [facility] Immature granulocytes/100 WBC (Bld) 0.20 % [facility] Interpretation and review of laboratory results Abnormal [facility] Lymphocytes (Bld) [#/Vol] 1.32 10*3/uL [facility] Lymphocytes/100 WBC (Bld) 16.1 % [facility] MCH (RBC) [Entitic mass] 30.5 pg 26.0 - 34.0 pg [facility] MCHC (RBC) [Mass/Vol] 32.8 g/dL 31.0 - 37.0 g/dL [facility] MCV (RBC) [Entitic vol] 92.9 fL 80.0 - 100.0 fL [facility] Monocytes (Bld) [#/Vol] 0.96 10*3/uL High [facility] Monocytes/100 WBC (Bld) 11.7 % [facility] Neutrophils (Bld) [#/Vol] 5.25 10*3/uL [facility] Neutrophils/100 WBC (Bld) 63.9 % [facility] Nucleated RBC (Bld) [#/Vol] 0.00 10*3/uL [facility] Nucleated RBC/100 WBC (Bld) [Ratio] 0.0 % [facility] Platelet mean volume (Bld) [Entitic vol] 12.4 fL 9.4 - 12.4 fL [facility] Platelets (Bld) [#/Vol] 115 10*3/uL Low [facility] RBC (Bld) [#/Vol] 3.94 10*6/uL Low [facility] WBC (Bld) [#/Vol] 8.22 10*3/uL [facility]ah [facility] Glucose (Bld) [Mass/Vol]on 0 12-01-2023 Glucose [Mass/Vol] 151 mg/dL High 65 - 99 mg/dL [facility] Interpretation and review of laboratory results Abnormal [facility] Glucose [Mass/Vol] 472 mg/dL Critically high 65 - 99 mg/d L [facility] Interpretation and review of laboratory results Abnormal [facility] Glucose [Mass/Vol] 454 mg/dL Critically high 65 - 99 mg/d L [facility] Interpretation and review of laboratory results Abnormal [facility] Glucose [Mass/Vol] 87 mg/dL 65 - 99 mg/dL [facility] Interpretation and review of laboratory results Normal [facility] Magnesium Levelon 12-01-2023 Magnesium [Mass/Vol] 2.1 mg/dL 1.6 - 2 .4 mg/dL [facility] Magnesium [Mass/Vol]on 12-01 Interpretation and review of laboratory results Normal [facility] aPTT Coag (Bld) [Time]Ordere d By: Burton Zendejas on 12-01-2023 Interpretation and review of laboratory results Abnormal [facility] APTTOrdered By: Zoila titus on 11-30-2023 aPTT Coag (Bld) [Time] 35 s High [facility] Basic metabolic 2000 panelon 11-30-2023 Anion gap [Moles/Vol] 9 mmol/L Low 10 - 20 mmol/L [facility] Calcium [Mass/Vol] 8.6 mg/dL 8.4 - 10. 2 mg/dL [facility] Chloride [Moles/Vol] 104 mmol/L 98 - 10 8 mmol/L [facility] Creatinine [Mass/Vol] 1.77 mg/dL High 0.80 - 1.30 mg/dL [facility] GFR/1.73 sq M.predicted CKD-EPI (S/P/Bld) [Vol rate/Area] 39 Low - PINF [facility] Glucose [Mass/Vol] 322 mg/dL High 65 - 99 mg/dL [facility] HCO3 [Moles/Vol] 29 mmol/L 21 - 32 mmol/L [facility] Interpretation and review of laboratory results Abnormal [facility] Potassium [Moles/Vol] 3.8 mmol/L 3.5 - 5.1 mmol/L [facility] Sodium [Moles/Vol] 138 mmol/L 135 - 145 mmol/L [facility] Urea nitrogen [Mass/Vol] 30 mg/dL High 8 - 25 mg/dL [facility] Urea nitrogen/Creatinine [Mass ratio] 16.9 mg/mg 10.0 - 20.0 [facility] CBC Auto Differentialon 11-03 Basophils (Bld) [#/Vol] 0.08 10*3/uL [facility] Basophils/100 WBC (Bld) 0.9 % [facility] Eosinophils (Bld) [#/Vol] 0.71 10*3/uL High [facility] Eosinophils/100 WBC (Bld) 8.0 % [facility] Erythrocyte distribution width (RBC) [Entitic vol] 13.5 % 11.6 - 14.8 % [facility] Hematocrit (Bld) [Volume fraction] 35.9 % Low 41.0 - 53.0 % [facility] Hemoglobin (Bld) [Mass/Vol] 11.8 g/dL Low 13.5 - 17.5 g/dL [facility] Immature granulocytes (Bld) [#/Vol] 0.03 10*3/uL [facility] Immature granulocytes/100 WBC (Bld) 0.30 % [facility] Interpretation and review of laboratory results Abnormal [facility] Lymphocytes (Bld) [#/Vol] 1.18 10*3/uL [facility] Lymphocytes/100 WBC (Bld) 13.3 % [facility] MCH (RBC) [Entitic mass] 30.5 pg 26.0 - 34.0 pg [facility] MCHC (RBC) [Mass/Vol] 32.9 g/dL 31.0 - 37.0 g/dL [facility] MCV (RBC) [Entitic vol] 92.8 fL 80.0 - 100.0 fL [facility] Monocytes (Bld) [#/Vol] 0.84 10*3/uL [facility] Monocytes/100 WBC (Bld) 9.4 % [facility] Neutrophils (Bld) [#/Vol] 6.05 10*3/uL [facility] Neutrophils/100 WBC (Bld) 68.1 % [facility] Nucleated RBC (Bld) [#/Vol] 0.00 10*3/uL [facility] Nucleated RBC/100 WBC (Bld) [Ratio] 0.0 % [facility] Platelet mean volume (Bld) [Entitic vol] 12.1 fL 9.4 - 12.4 fL [facility] Platelets (Bld) [#/Vol] 120 10*3/uL Low [facility] RBC (Bld) [#/Vol] 3.87 10*6/uL Low [facility] WBC (Bld) [#/Vol] 8.89 10*3/uL [facility] CT Chest WO contraston 11-30 [employer] GE RIS [facility] CT Chest WO contrastOrdered By: Alice Kaminski on 11-30-2023 [facility] Work Phone: Echocardiogram completeon Aortic valve area 2.79280 cm [facility] AV mean gradient 3.53482 mmHg [facility] AV peak gradient 6.04959 mmHg [facility] EF 63.3016 % [facility] FUJI SYNAPSE CV [facility] Electrocardiogram, 12-leadon 11-30-2023 Atrial Rate 97 BPM [facility] P Malcolm 77 degrees [facility] P-R Interval 152 ms [facility] Q-T Interval 376 ms [facility] QRS Duration 76 ms [facility] QTC Calculation (Bezet) 477 ms [facility] R Malcolm 72 degrees [facility] T Malcolm 51 degrees [facility] Ventricular Rate 97 BPM [facility] Glucose (Bld) [Mass/Vol]on 0 11-30-2023 Glucose [Mass/Vol] 190 mg/dL High 65 - 99 mg/dL [facility] Interpretation and review of laboratory results Abnormal [facility] Glucose [Mass/Vol] 103 mg/dL High 65 - 99 mg/dL [facility] Interpretation and review of laboratory results Abnormal [facility] Magnesium Levelon 11-30-2023 Magnesium [Mass/Vol] 2.2 mg/dL 1.6 - 2 .4 mg/dL [facility] Magnesium [Mass/Vol]on 11-30 Interpretation and review of laboratory results Normal [facility] No Panel Informationon 11-30 [facility] aPTT Coag (Bld) [Time]Ordere d By: Zoila Ruiz on 11-30-2023 Interpretation and review of laboratory results Abnormal [facility] APTTon 11-29-2023 aPTT Coag (Bld) [Time] 38 s [facility] APTT Heparin Coverageon 11-02 aPTT Coag (Bld) [Time] 98 s High [facility] Interpretation and review of laboratory results Abnormal [facility] APTT Heparin CoverageOrdered By: Tania Escobedo on 11-29-2023 aPTT Coag (Bld) [Time] Critically high [facility] Interpretation and review of laboratory results Abnormal [facility] Bacteria identified Aer cx N om (Sput)Ordered By: Franco Armenta on 11-29-2023 Microscopic observation Gram stain Nom (Sput) Few WBC [facility] Microscopic observation Gram stain Nom (Sput) Few Epithelial Cells [facility] Microscopic observation Gram stain Nom (Sput) Positive [facility] Microscopic observation Gram stain Nom (Sput) Rare Mixed Kyler [facility] Basic metabolic 2000 panelon 11-29-2023 Anion gap [Moles/Vol] 7 mmol/L Low 10 - 20 mmol/L [facility] Calcium [Mass/Vol] 8.4 mg/dL 8.4 - 10. 2 mg/dL [facility] Chloride [Moles/Vol] 106 mmol/L 98 - 10 8 mmol/L [facility] Creatinine [Mass/Vol] 1.91 mg/dL High 0.80 - 1.30 mg/dL [facility] GFR/1.73 sq M.predicted CKD-EPI (S/P/Bld) [Vol rate/Area] 35 Low - PINF [facility] Glucose [Mass/Vol] 234 mg/dL High 65 - 99 mg/dL [facility] HCO3 [Moles/Vol] 28 mmol/L 21 - 32 mmol/L [facility] Interpretation and review of laboratory results Abnormal [facility] Potassium [Moles/Vol] 4.0 mmol/L 3.5 - 5.1 mmol/L [facility] Sodium [Moles/Vol] 137 mmol/L 135 - 145 mmol/L [facility] Urea nitrogen [Mass/Vol] 34 mg/dL High 8 - 25 mg/dL [facility] Urea nitrogen/Creatinine [Mass ratio] 17.8 mg/mg 10.0 - 20.0 [facility] CBC Auto Differentialon 11-02 Basophils (Bld) [#/Vol] 0.10 10*3/uL [facility] Basophils/100 WBC (Bld) 0.9 % [facility] Eosinophils (Bld) [#/Vol] 0.48 10*3/uL [facility] Eosinophils/100 WBC (Bld) 4.4 % [facility] Erythrocyte distribution width (RBC) [Entitic vol] 14.0 % 11.6 - 14.8 % [facility] Hematocrit (Bld) [Volume fraction] 32.8 % Low 41.0 - 53.0 % [facility] Hemoglobin (Bld) [Mass/Vol] 10.7 g/dL Low 13.5 - 17.5 g/dL [facility] Immature granulocytes (Bld) [#/Vol] 0.05 10*3/uL [facility] Immature granulocytes/100 WBC (Bld) 0.50 % [facility] Interpretation and review of laboratory results Abnormal [facility] Lymphocytes (Bld) [#/Vol] 1.92 10*3/uL [facility] Lymphocytes/100 WBC (Bld) 17.7 % [facility] MCH (RBC) [Entitic mass] 30.6 pg 26.0 - 34.0 pg [facility] MCHC (RBC) [Mass/Vol] 32.6 g/dL 31.0 - 37.0 g/dL [facility] MCV (RBC) [Entitic vol] 93.7 fL 80.0 - 100.0 fL [facility] Monocytes (Bld) [#/Vol] 1.02 10*3/uL High [facility] Monocytes/100 WBC (Bld) 9.4 % [facility] Neutrophils (Bld) [#/Vol] 7.26 10*3/uL High [facility] Neutrophils/100 WBC (Bld) 67.1 % [facility] Nucleated RBC (Bld) [#/Vol] 0.00 10*3/uL [facility] Nucleated RBC/100 WBC (Bld) [Ratio] 0.0 % [facility] Platelet mean volume (Bld) [Entitic vol] 12.1 fL 9.4 - 12.4 fL [facility] Platelets (Bld) [#/Vol] 130 10*3/uL Low [facility] RBC (Bld) [#/Vol] 3.50 10*6/uL Low [facility] WBC (Bld) [#/Vol] 10.83 10*3/uL [facility] CT Chest WO contraston 11-29 Radiology Study observation (narrative) [facility] Glucose (Bld) [Mass/Vol]on 0 11-29-2023 Glucose [Mass/Vol] 174 mg/dL High 65 - 99 mg/dL [facility] [facility] Interpretation and review of [facility] results Abnormal [facility] Glucose [Mass/Vol] 266 mg/dL High 65 - 99 mg/dL [facility]al Interpretation and review of laboratory results Abnormal [facility] HbA1c (Bld) [Mass fraction]O rdered By: Lidia Ruff on 11-29-2023 Average glucose Estimated from glycated hemoglobin (Bld) [Mass/Vol] 174 mg/dL High 68 - 114 mg/dL [facility] Interpretation and review of laboratory results Abnormal [facility] Hemoglobin [id number] By: Davina Ruff on 11-29-2023 HbA1c (Bld) [Mass fraction] 7.7 % High 4.0 - 5.6 % [facility] Magnesium Levelon 11-29-2023 Magnesium [Mass/Vol] 2.2 mg/dL 1.6 - 2 .4 mg/dL [facility] Magnesium [Mass/Vol]on 11-29 Interpretation and review of laboratory results Normal [facility] No Panel Informationon 11-29 [facility] Sputum Aerobic CultureOrdere d By: Franco Armenta on 11-29-2023 Bacteria identified Aer cx Nom (Sput) Normal [place]yler After 48 Hours [facility] aPTT Coag (Bld) [Time]on Interpretation and review of laboratory results Abnormal [facility] APTTon 11-28-2023 aPTT Coag (Bld) [Time] 102 s High [facility] Basic metabolic 2000 panelon 11-28-2023 Anion gap [Moles/Vol] 13 mmol/L 10 - 20 mmol/L [facility] Calcium [Mass/Vol] 9.0 mg/dL 8.4 - 10. 2 mg/dL [facility] Chloride [Moles/Vol] 110 mmol/L High 98 - 10 8 mmol/L [facility] Creatinine [Mass/Vol] 1.99 mg/dL High 0.80 - 1.30 mg/dL [facility] GFR/1.73 sq M.predicted CKD-EPI (S/P/Bld) [Vol rate/Area] 34 Low - PINF [facility] Glucose [Mass/Vol] 183 mg/dL High 65 - 99 mg/dL [facility] HCO3 [Moles/Vol] 23 mmol/L 21 - 32 mmol/L [facility] Interpretation and review of laboratory results Abnormal [facility] Potassium [Moles/Vol] 4.3 mmol/L 3.5 - 5.1 mmol/L [facility] Sodium [Moles/Vol] 142 mmol/L 135 - 145 mmol/L [facility] Urea nitrogen [Mass/Vol] 33 mg/dL High 8 - 25 mg/dL [facility] Urea nitrogen/Creatinine [Mass ratio] 16.6 mg/mg 10.0 - 20.0 [facility] Anion gap [Moles/Vol] 9 mmol/L Low 10 - 20 mmol/L [facility] Calcium [Mass/Vol] 8.8 mg/dL 8.4 - 10. 2 mg/dL [facility] Chloride [Moles/Vol] 111 mmol/L High 98 - 10 8 mmol/L [facility] Creatinine [Mass/Vol] 2.03 mg/dL High 0.80 - 1.30 mg/dL [facility] GFR/1.73 sq M.predicted CKD-EPI (S/P/Bld) [Vol rate/Area] 33 Low - PINF [facility] Glucose [Mass/Vol] 160 mg/dL High 65 - 99 mg/dL [facility] HCO3 [Moles/Vol] 27 mmol/L 21 - 32 mmol/L [facility] Interpretation and review of laboratory results Abnormal [facility] Potassium [Moles/Vol] 4.3 mmol/L 3.5 - 5.1 mmol/L [facility] Sodium [Moles/Vol] 143 mmol/L 135 - 145 mmol/L [facility] Urea nitrogen [Mass/Vol] 34 mg/dL High 8 - 25 mg/dL [facility] Urea nitrogen/Creatinine [Mass ratio] 16.7 mg/mg 10.0 - 20.0 [facility] Anion gap [Moles/Vol] 10 mmol/L 10 - 20 mmol/L [facility] Calcium [Mass/Vol] 8.7 mg/dL 8.4 - 10. 2 mg/dL [facility] Chloride [Moles/Vol] 112 mmol/L High 98 - 10 8 mmol/L [facility] Creatinine [Mass/Vol] 2.03 mg/dL High 0.80 - 1.30 mg/dL [facility] GFR/1.73 sq M.predicted CKD-EPI (S/P/Bld) [Vol rate/Area] 33 Low - PINF [facility] Glucose [Mass/Vol] 119 mg/dL High 65 - 99 mg/dL [facility] HCO3 [Moles/Vol] 24 mmol/L 21 - 32 mmol/L [facility] Interpretation and review of laboratory results Abnormal [facility] Potassium [Moles/Vol] 3.9 mmol/L 3.5 - 5.1 mmol/L [facility] Sodium [Moles/Vol] 142 mmol/L 135 - 145 mmol/L [facility] Urea nitrogen [Mass/Vol] 35 mg/dL High 8 - 25 mg/dL [facility] Urea nitrogen/Creatinine [Mass ratio] 17.2 mg/mg 10.0 - 20.0 [facility] Beta hydroxybutyrate [Moles/ Vol]on 11-28-2023 Interpretation and review of laboratory results Abnormal [facility] Interpretation and review of laboratory results Abnormal [facility] Beta-Hydroxybutyrateon 11-28 Beta hydroxybutyrate [Moles/Vol] 0.8 mmol/L High 0.0 - 0.3 mmol/L [facility] Beta hydroxybutyrate [Moles/Vol] 0.4 mmol/L High 0.0 - 0.3 mmol/L [facility] Beta hydroxybutyrate [Moles/Vol] 0.6 mmol/L High 0.0 - 0.3 mmol/L [facility] CBC Auto Differentialon 11-02 Basophils (Bld) [#/Vol] 0.07 10*3/uL [facility] Basophils/100 WBC (Bld) 0.5 % [facility] Eosinophils (Bld) [#/Vol] 0.09 10*3/uL [facility] Eosinophils/100 WBC (Bld) 0.6 % [facility] Erythrocyte distribution width (RBC) [Entitic vol] 14.3 % 11.6 - 14.8 % [facility] Hematocrit (Bld) [Volume fraction] 33.6 % Low 41.0 - 53.0 % [facility] Hemoglobin (Bld) [Mass/Vol] 10.8 g/dL Low 13.5 - 17.5 g/dL [facility] Immature granulocytes (Bld) [#/Vol] 0.05 10*3/uL [facility] Immature granulocytes/100 WBC (Bld) 0.40 % [facility] Interpretation and review of laboratory results Abnormal [facility] Lymphocytes (Bld) [#/Vol] 2.69 10*3/uL [facility] Lymphocytes/100 WBC (Bld) 18.9 % [facility] MCH (RBC) [Entitic mass] 30.4 pg 26.0 - 34.0 pg [facility] MCHC (RBC) [Mass/Vol] 32.1 g/dL 31.0 - 37.0 g/dL [facility] MCV (RBC) [Entitic vol] 94.6 fL 80.0 - 100.0 fL [facility] Monocytes (Bld) [#/Vol] 1.26 10*3/uL High [facility] Monocytes/100 WBC (Bld) 8.9 % [facility] Neutrophils (Bld) [#/Vol] 10.06 10*3/uL High [facility] Neutrophils/100 WBC (Bld) 70.7 % [facility] Nucleated RBC (Bld) [#/Vol] 0.00 10*3/uL [facility] Nucleated RBC/100 WBC (Bld) [Ratio] 0.0 % [facility] Platelet mean volume (Bld) [Entitic vol] 11.9 fL 9.4 - 12.4 fL [facility] Platelets (Bld) [#/Vol] 151 10*3/uL [facility] RBC (Bld) [#/Vol] 3.55 10*6/uL Low [facility] WBC (Bld) [#/Vol] 14.22 10*3/uL High [facility] CRP [Mass/Vol]on 11-28-2023 Interpretation and review of laboratory results Abnormal [facility] CRP, Inflammationon 11-28-19 CRP [Mass/Vol] 11.6 mg/L High NINF - 10.0 mg/L [facility] D-Dimer, Quantitativeon 11-02 Fibrin D-dimer FEU (PPP) [Mass/Vol] 1.32 High [facility] Interpretation and review of laboratory results Abnormal [facility] Glucose (Bld) [Mass/Vol]on 0 11-28-2023 Glucose [Mass/Vol] 222 mg/dL High 65 - 99 mg/dL [facility] Interpretation and review of laboratory results Abnormal [facility] Glucose [Mass/Vol] 182 mg/dL High 65 - 99 mg/dL [facility] Interpretation and review of laboratory results Abnormal [facility] Glucose [Mass/Vol] 286 mg/dL High 65 - 99 mg/dL [facility] Interpretation and review of laboratory results Abnormal [facility] Glucose [Mass/Vol] 209 mg/dL High 65 - 99 mg/dL [facility] Interpretation and review of laboratory results Abnormal [facility] Glucose [Mass/Vol] 167 mg/dL High 65 - 99 mg/dL [facility] Interpretation and review of laboratory results Abnormal [facility] LDHon 11-28-2023 LDH Lactate to pyruvate reaction [Catalytic activity/Vol] 299 U/L High 100 - 250 U/L [facility] Magnesium Levelon 11-28-2023 Magnesium [Mass/Vol] 2.5 mg/dL High 1.6 - 2 .4 mg/dL [facility] Magnesium [Mass/Vol] 2.6 mg/dL High 1.6 - 2 .4 mg/dL [facility] Magnesium [Mass/Vol] 2.2 mg/dL 1.6 - 2 .4 mg/dL [facility] Magnesium [Mass/Vol]on 11-28 Interpretation and review of laboratory results Abnormal [facility] Interpretation and review of laboratory results Abnormal [facility] Interpretation and review of laboratory results Normal [facility] No Panel Informationon 11-28 Interpretation and review of laboratory results Abnormal [facility] Phosphate [Mass/Vol]on 11-28 Interpretation and review of laboratory results Normal [facility] Interpretation and review of laboratory results Abnormal [facility] Interpretation and review of laboratory results Abnormal [facility] Phosphoruson 11-28-2023 Phosphate [Mass/Vol] 3.6 mg/dL 2.3 - 3 .7 mg/dL [facility] Phosphate [Mass/Vol] 3.8 mg/dL High 2.3 - 3 .7 mg/dL [facility] Phosphate [Mass/Vol] 3.8 mg/dL High 2.3 - 3 .7 mg/dL [facility] aPTT Coag (Bld) [Time]on Interpretation and review of laboratory results Abnormal [facility] APTTOrdered By: Becky Mercado on 11-27-2023 aPTT Coag (Bld) [Time] 78 s High [facility] APTTOrdered By: Anjali Hartmann on 11-27-2023 aPTT Coag (Bld) [Time] 66 s High [facility] APTT Heparin CoverageOrdered By: Yesenia Cardona on 11-27-2023 aPTT Coag (Bld) [Time] 87 s High [facility] Interpretation and review of laboratory results Abnormal [facility] Basic metabolic 2000 panelon 11-27-2023 Anion gap [Moles/Vol] 9 mmol/L Low 10 - 20 mmol/L [facility] Calcium [Mass/Vol] 8.7 mg/dL 8.4 - 10. 2 mg/dL [facility] Chloride [Moles/Vol] 113 mmol/L High 98 - 10 8 mmol/L [facility] Creatinine [Mass/Vol] 2.24 mg/dL High 0.80 - 1.30 mg/dL [facility] GFR/1.73 sq M.predicted CKD-EPI (S/P/Bld) [Vol rate/Area] 29 Low - PINF [facility] Glucose [Mass/Vol] 168 mg/dL High 65 - 99 mg/dL [facility] HCO3 [Moles/Vol] 25 mmol/L 21 - 32 mmol/L [facility] Interpretation and review of laboratory results Abnormal [facility] Potassium [Moles/Vol] 3.7 mmol/L 3.5 - 5.1 mmol/L [facility] Sodium [Moles/Vol] 143 mmol/L 135 - 145 mmol/L [facility] Urea nitrogen [Mass/Vol] 37 mg/dL High 8 - 25 mg/dL [facility] Urea nitrogen/Creatinine [Mass ratio] 16.5 mg/mg 10.0 - 20.0 [facility] Anion gap [Moles/Vol] 9 mmol/L Low 10 - 20 mmol/L [facility] Calcium [Mass/Vol] 9.0 mg/dL 8.4 - 10. 2 mg/dL [facility] Chloride [Moles/Vol] 113 mmol/L High 98 - 10 8 mmol/L [facility] Creatinine [Mass/Vol] 2.24 mg/dL High 0.80 - 1.30 mg/dL [facility] GFR/1.73 sq M.predicted CKD-EPI (S/P/Bld) [Vol rate/Area] 29 Low - PINF [facility] Glucose [Mass/Vol] 153 mg/dL High 65 - 99 mg/dL [facility] [Moles/Vol] 24 mmol/L 21 - 32 mmol/L [facility] Interpretation and review of laboratory results Abnormal [facility] Potassium [Moles/Vol] 4.0 mmol/L 3.5 - 5.1 mmol/L [facility] Sodium [Moles/Vol] 142 mmol/L 135 - 145 mmol/L [facility] Urea nitrogen [Mass/Vol] 39 mg/dL High 8 - 25 mg/dL [facility] Urea nitrogen/Creatinine [Mass ratio] 17.4 mg/mg 10.0 - 20.0 [facility] Anion gap [Moles/Vol] 13 mmol/L 10 - 20 mmol/L [facility] Calcium [Mass/Vol] 9.3 mg/dL 8.4 - 10. 2 mg/dL [facility] Chloride [Moles/Vol] 112 mmol/L High 98 - 10 8 mmol/L [facility] Creatinine [Mass/Vol] 2.26 mg/dL High 0.80 - 1.30 mg/dL [facility] GFR/1.73 sq M.predicted CKD-EPI (S/P/Bld) [Vol rate/Area] 29 Low - PINF [facility] Glucose [Mass/Vol] 114 mg/dL High 65 - 99 mg/dL [facility] o[facility]al HCO3 [Moles/Vol] 23 mmol/L 21 - 32 mmol/L [facility] Interpretation and review of laboratory results Abnormal [facility] Potassium [Moles/Vol] 3.7 mmol/L 3.5 - 5.1 mmol/L [facility] Sodium [Moles/Vol] 144 mmol/L 135 - 145 mmol/L [facility] Urea nitrogen [Mass/Vol] 42 mg/dL High 8 - 25 mg/dL [facility] Urea nitrogen/Creatinine [Mass ratio] 18.6 mg/mg 10.0 - 20.0 [facility] Anion gap [Moles/Vol] 13 mmol/L 10 - 20 mmol/L [facility] Calcium [Mass/Vol] 9.2 mg/dL 8.4 - 10. 2 mg/dL [facility] Chloride [Moles/Vol] 111 mmol/L High 98 - 10 8 mmol/L [facility] Creatinine [Mass/Vol] 2.35 mg/dL High 0.80 - 1.30 mg/dL [facility] GFR/1.73 sq M.predicted CKD-EPI (S/P/Bld) [Vol rate/Area] 27 Low - PINF [facility] Glucose [Mass/Vol] 340 mg/dL High 65 - 99 mg/dL [facility] HCO3 [Moles/Vol] 21 mmol/L 21 - 32 mmol/L [facility] Interpretation and review of laboratory results Abnormal [facility] Potassium [Moles/Vol] 3.4 mmol/L Low 3.5 - 5.1 mmol/L [facility] Sodium [Moles/Vol] 142 mmol/L 135 - 145 mmol/L [facility] Urea nitrogen [Mass/Vol] 42 mg/dL High 8 - 25 mg/dL [facility] Urea nitrogen/Creatinine [Mass ratio] 17.9 mg/mg 10.0 - 20.0 [facility] Basic metabolic 2000 panelOr dered By: Moody Hughes on 11-27-2023 Anion gap [Moles/Vol] 13 mmol/L 10 - 20 mmol/L [facility] Calcium [Mass/Vol] 8.9 mg/dL 8.4 - 10. 2 mg/dL [facility] Chloride [Moles/Vol] 107 mmol/L 98 - 10 8 mmol/L [facility] Creatinine [Mass/Vol] 2.24 mg/dL High 0.80 - 1.30 mg/dL [facility] GFR/1.73 sq M.predicted CKD-EPI (S/P/Bld) [Vol rate/Area] 29 Low - PINF [facility] Glucose [Mass/Vol] 523 mg/dL Critically high 65 - 99 mg/d L [facility] HCO3 [Moles/Vol] 21 mmol/L 21 - 32 mmol/L [facility] Interpretation and review of laboratory results Abnormal [facility] Potassium [Moles/Vol] 4.6 mmol/L 3.5 - 5.1 mmol/L [facility] Sodium [Moles/Vol] 136 mmol/L 135 - 145 mmol/L [facility] Urea nitrogen [Mass/Vol] 42 mg/dL High 8 - 25 mg/dL [facility] Urea nitrogen/Creatinine [Mass ratio] 18.8 mg/mg 10.0 - 20.0 [facility] Beta hydroxybutyrate [Moles/ Vol]on 11-27-2023 Interpretation and review of laboratory results Normal [facility] Interpretation and review of laboratory results Normal [facility] Interpretation and review of laboratory results Normal [facility] Interpretation and review of laboratory results Normal [facility] Beta-Hydroxybutyrateon 11-27 Beta hydroxybutyrate [Moles/Vol] mmol/L 0.0 - 0.3 mmol/L [facility] Beta hydroxybutyrate [Moles/Vol] 0.2 mmol/L 0.0 - 0.3 mmol/L [facility] Beta hydroxybutyrate [Moles/Vol] mmol/L 0.0 - 0.3 mmol/L [facility] Beta hydroxybutyrate [Moles/Vol] 0.2 mmol/L 0.0 - 0.3 mmol/L [facility] Beta hydroxybutyrate [Moles/Vol] 1.9 mmol/L High 0.0 - 0.3 mmol/L [facility] CBC Auto Differentialon 11-02 Basophils (Bld) [#/Vol] 0.04 10*3/uL [facility] Basophils/100 WBC (Bld) 0.2 % [facility] Eosinophils (Bld) [#/Vol] 0.00 10*3/uL [facility] Eosinophils/100 WBC (Bld) 0.0 % [facility] Erythrocyte distribution width (RBC) [Entitic vol] 14.0 % 11.6 - 14.8 % [facility] Hematocrit (Bld) [Volume fraction] 34.0 % Low 41.0 - 53.0 % [facility] Hemoglobin (Bld) [Mass/Vol] 11.1 g/dL Low 13.5 - 17.5 g/dL [facility] Immature granulocytes (Bld) [#/Vol] 0.11 10*3/uL [facility] Immature granulocytes/100 WBC (Bld) 0.50 % [facility] Interpretation and review of laboratory results Abnormal [facility] Lymphocytes (Bld) [#/Vol] 0.91 10*3/uL [facility] Lymphocytes/100 WBC (Bld) 3.8 % [facility] MCH (RBC) [Entitic mass] 30.9 pg 26.0 - 34.0 pg [facility] MCHC (RBC) [Mass/Vol] 32.6 g/dL 31.0 - 37.0 g/dL [facility] MCV (RBC) [Entitic vol] 94.7 fL 80.0 - 100.0 fL [facility] Monocytes (Bld) [#/Vol] 1.21 10*3/uL High [facility] Monocytes/100 WBC (Bld) 5.1 % [facility] Neutrophils (Bld) [#/Vol] 21.42 10*3/uL High [facility] Neutrophils/100 WBC (Bld) 90.4 % [facility] Nucleated RBC (Bld) [#/Vol] 0.00 10*3/uL [facility] Nucleated RBC/100 WBC (Bld) [Ratio] 0.0 % [facility] Platelet mean volume (Bld) [Entitic vol] 11.9 fL 9.4 - 12.4 fL [facility] Platelets (Bld) [#/Vol] 220 10*3/uL [facility] RBC (Bld) [#/Vol] 3.59 10*6/uL Low [facility] WBC (Bld) [#/Vol] 23.69 10*3/uL [facility] CRP [Mass/Vol]on 11-27-2023 Interpretation and review of laboratory results Normal [facility] CRP, Inflammationon 11-27-19 CRP [Mass/Vol] mg/L NINF - 10.0 mg/L [facility] Clostridium difficile Testin gOrdered By: Nina Martinez on 11-27-2023 C. difficile Interpretation Negative [facility] Specimen Acceptability Acceptable [facility] ESR Westergren method (Bld) [Velocity]on 11-27-2023 ESR (Bld) [Velocity] 21 mm/h [facility] Interpretation and review of laboratory results Abnormal [facility] Glucose (Bld) [Mass/Vol]on 0 11-27-2023 Glucose [Mass/Vol] 85 mg/dL 65 - 99 mg/dL [facility] Interpretation and review of laboratory results Normal [facility] Glucose [Mass/Vol] 106 mg/dL High 65 - 99 mg/dL [facility] Interpretation and review of laboratory results Abnormal [facility] Glucose [Mass/Vol] 179 mg/dL High 65 - 99 mg/dL [facility] Interpretation and review of laboratory results Abnormal [facility] Glucose [Mass/Vol] 255 mg/dL High 65 - 99 mg/dL [facility] Interpretation and review of laboratory results Abnormal [facility] Glucose [Mass/Vol] 252 mg/dL High 65 - 99 mg/dL [facility] Interpretation and review of laboratory results Abnormal [facility] Glucose [Mass/Vol] 145 mg/dL High 65 - 99 mg/dL [facility] Interpretation and review of laboratory results Abnormal [facility] Glucose [Mass/Vol] 155 mg/dL High 65 - 99 mg/dL [facility] Interpretation and review of laboratory results Abnormal [facility] Glucose [Mass/Vol] 155 mg/dL High 65 - 99 mg/dL [facility] Interpretation and review of laboratory results Abnormal [facility] Glucose [Mass/Vol] 143 mg/dL High 65 - 99 mg/dL [facility] Interpretation and review of laboratory results Abnormal [facility] Glucose [Mass/Vol] 123 mg/dL High 65 - 99 mg/dL [facility] Interpretation and review of laboratory results Abnormal [facility] Glucose [Mass/Vol] 132 mg/dL High 65 - 99 mg/dL [facility] Interpretation and review of laboratory results Abnormal [facility] Glucose [Mass/Vol] 202 mg/dL High 65 - 99 mg/dL [facility] Interpretation and review of laboratory results Abnormal [facility] Glucose [Mass/Vol] 318 mg/dL High 65 - 99 mg/dL [facility] Interpretation and review of laboratory results Abnormal [facility] Glucose [Mass/Vol] 365 mg/dL High 65 - 99 mg/dL [facility] Interpretation and review of laboratory results Abnormal [facility] Glucose [Mass/Vol] 453 mg/dL Critically high 65 - 99 mg/d L [facility] Interpretation and review of laboratory results Abnormal [facility] Glucose [Mass/Vol] mg/dL Critically high 65 - 99 mg/d L [facility] Interpretation and review of laboratory results Abnormal [facility] Glucose [Mass/Vol] mg/dL Critically high 65 - 99 mg/d L [facility] Interpretation and review of laboratory results Abnormal [facility] Glucose [Mass/Vol] 498 mg/dL Critically high 65 - 99 mg/d L [facility] Interpretation and review of laboratory results Abnormal [facility] Green Topon 11-27-2023 Extra Tube Hold for add-ons. [facility] Comment on above: Auto resulted. [facility] HbA1c (Bld) [Mass fraction]O rdered By: Brent Carrillo on 11-27-2023 Average glucose Estimated from glycated hemoglobin (Bld) [Mass/Vol] 169 mg/dL High 68 - 114 mg/dL [facility] Interpretation and review of laboratory results Abnormal [facility] Hemoglobin [id number] By: Damaris Carrillo on 11-27-2023 HbA1c (Bld) [Mass fraction] 7.5 % High 4.0 - 5.6 % [facility] Hepatic function 2000 panelo n 11-27-2023 Albumin [Mass/Vol] 3.4 g/dL 3.2 - 5.2 g/dL [facility] ALP [Catalytic activity/Vol] 97 U/L 40 - 150 U/L [facility] ALT [Catalytic activity/Vol] 47 U/L 14 - 65 U/L [facility] AST [Catalytic activity/Vol] 74 U/L High 0-50 U/L [facility] Bilirubin [Mass/Vol] 0.7 mg/dL 0.0 - 1 .3 mg/dL [facility] Bilirubin.conjugated [Mass/Vol] 0.2 mg/dL 0.0 - 0.4 mg/dL [facility] Protein [Mass/Vol] 6.3 g/dL 6.0 - 8.0 g/dL [facility] Influenza virus A and B RNA and SARS-CoV-2 (COVID-19) N gene panel ALICE+probe (Resp)Ordered By: Esthela Albright on 11-27-2023 FLUAV RNA ALICE+probe Ql (Unsp spec) Not detected Not Detected [facility] FLUBV RNA ALICE+probe Ql (Unsp spec) Not detected Not Detected [facility] Interpretation and review of laboratory results Abnormal [facility] SARS-CoV-2 (COVID-19) RNA ALICE+probe Ql (Resp) Detected Abnormal Not Detected [facility] Lactate [Moles/Vol]on 2023 Interpretation and review of laboratory results Abnormal [facility] Interpretation and review of laboratory results Normal [facility] Lactic Acid, Plasmaon 2023 Lactate [Moles/Vol] 2.8 mmol/L High 0.6 - 2. 0 mmol/L [facility] Lactate [Moles/Vol] 2.0 mmol/L 0.6 - 2. 0 mmol/L [facility] Legionella Antigen, Urineon 11-27-2023 Interpretation and review of laboratory results Normal [facility] L. pneumophila Ag Ql (U) Negative Negative for Legionella antigen [facility] Lipid 1996 panelon Cholesterol [Mass/Vol] 130 mg/dL 100 - 199 mg/dL [facility] Cholesterol in HDL [Mass/Vol] 56 mg/dL 40 - 59 mg/dL [facility] Cholesterol in LDL [Mass/Vol] 61 mg/dL 10 - 130 mg/dL [facility] Cholesterol non HDL [Mass/Vol] 74 mg/dL [facility] Cholesterol.total/Chol esterol in HDL [Mass ratio] 2.3 {ratio} ratio [facility] Triglyceride [Mass/Vol] 67 mg/dL 30 - 150 mg/dL [facility] MRSA DNA Amplified Probeon 0 11-27-2023 MRSA DNA ALICE+probe Ql (Unsp spec) Negative Not Detected, MRSA NEGATIVE [facility] MRSA DNA ALICE+probe Ql (Unsp spec)on 11-27-2023 Interpretation and review of laboratory results Normal [facility] Magnesium Levelon 11-27-2023 Magnesium [Mass/Vol] 1.9 mg/dL 1.6 - 2 .4 mg/dL [facility] Magnesium [Mass/Vol] 2.2 mg/dL 1.6 - 2 .4 mg/dL [facility] Magnesium [Mass/Vol] 2.1 mg/dL 1.6 - 2 .4 mg/dL [facility] Magnesium [Mass/Vol] 2.1 mg/dL 1.6 - 2 .4 mg/dL [facility] Magnesium [Mass/Vol] 2.2 mg/dL 1.6 - 2 .4 mg/dL [facility] Magnesium [Mass/Vol]on 11-27 Interpretation and review of laboratory results Normal [facility] Interpretation and review of laboratory results Normal [facility] Interpretation and review of laboratory results Normal [facility] Interpretation and review of laboratory results Normal [facility] Interpretation and review of laboratory results Normal [facility] NT Pro BNPon 11-27-2023 Natriuretic peptide.B prohormone N-Terminal [Mass/Vol] 35671 pg/mL High 0 - 300 pg/mL [facility] Natriuretic peptide.B prohor katja N-Terminal [Mass/Vol]on 11-27-2023 Interpretation and review of laboratory results Abnormal [facility] No Panel Informationon 11-27 [facility] Interpretation and review of laboratory results Abnormal [facility] Obtain venous blood gases an d performon 11-27-2023 [facility] POC Arterial Blood Gas Panel -Pulmon 11-27-2023 Alveolar-arterial oxygen Partial pressure difference 85.4 mm Hg [facility] Base excess Calc (Bld) [Moles/Vol] -7.1000 mmol/L Low -2.0 - 2.0 [facility] Calcium.ionized [Mass/Vol] 4.7 mg/dL 4.5 - 5.3 mg/dL [facility] Carboxyhemoglobin (BldA) [Mass fraction] 1.3 NINF [facility] Chloride [Moles/Vol] 107 mmol/L 98 - 10 8 mmol/L [facility] CO2 (Bld) [Partial pressure] 31.7 mm[Hg] Low [facility] Glucose post fast [Mass/Vol] 543 mg/dL Critically high 65 - 99 mg/dL [facility] HCO3 (Bld) [Moles/Vol] 17.5 mmol/L Low 22.0 - 26.0 mmol/L [facility] Hematocrit (BldA) [Volume fraction] 37.9 % Low 41.0 - 53.0 % [facility] Hemoglobin (Bld) [Mass/Vol] 12.4 g/dL Low 13.5 - 17.5 g/dL [facility] Inhaled oxygen concentration 30 % [facility] Interpretation and review of laboratory results Abnormal [facility] Lactate [Moles/Vol] 1.7 mmol/L 0.6 - 2. 0 mmol/L [facility] Methemoglobin (BldA) [Mass fraction] % 0.0 - 2.0 % [facility] Oxygen (Bld) [Partial pressure] 84 mm[Hg] [facility] Oxyhemoglobin (BldA) [Mass fraction] 94.5 % 94.0 - 98.0 % [facility] pH (Bld) 7.35 [pH] 7.35 - 7.45 [facility] Potassium [Moles/Vol] 4.6 mmol/L 3.5 - 5.1 mmol/L [facility] Sodium [Moles/Vol] 138 mmol/L 135 - 145 mmol/L [facility] Specimen source Nom (Unsp spec) Radial, right [facility] POC Venous Blood Gas Panel-P [facility] 11-27-2023 Base excess Calc (BldV) [Moles/Vol] -8.4000 mmol/L Low -2.0 - 2.0 [facility] Calcium.ionized [Mass/Vol] 4.4 mg/dL Low 4.5 - 5.3 mg/dL [facility] Carboxyhemoglobin (BldA) [Mass fraction] 2.9 High [facility] Chloride [Moles/Vol] 108 mmol/L 98 - 10 8 mmol/L [facility] CO2 (BldV) [Partial pressure] 26.6 mm[Hg] Low [facility] Glucose post fast [Mass/Vol] 544 mg/dL Critically high 65 - 99 mg/dL [facility] HCO3 (Bld) [Moles/Vol] 15.4 mmol/L Low 24.0 - 28.0 mmol/L [facility] Hematocrit (BldA) [Volume fraction] 36.5 % Low 41.0 - 53.0 % [facility] Hemoglobin (Bld) [Mass/Vol] 11.9 g/dL Low 13.5 - 17.5 g/dL [facility] Inhaled oxygen concentration 30 % [facility] Interpretation and review of laboratory results Abnormal [facility] Lactate [Moles/Vol] 2.5 mmol/L High 0.6 - 2. 0 mmol/L [facility] Methemoglobin (BldA) [Mass fraction] % 0.0 - 2.0 % [facility] Oxygen (BldV) [Partial pressure] 140 mm[Hg] High [facility] Oxygen saturation in Venous blood 99.4 % High 40.0 - 70.0 % [facility] Oxyhemoglobin (BldA) [Mass fraction] 96.3 % No established reference range [facility] pH (BldV) 7.37 [pH] 7.32 - 7.42 [facility] Potassium [Moles/Vol] 4.0 mmol/L 3.5 - 5.1 mmol/L [facility] Sodium [Moles/Vol] 138 mmol/L 135 - 145 mmol/L [facility] Specimen source Nom (Unsp spec) Not specified [facility] Base excess Calc (BldV) [Moles/Vol] -5.8000 mmol/L Low -2.0 - 2.0 [facility] Calcium.ionized [Mass/Vol] 4.7 mg/dL 4.5 - 5.3 mg/dL [facility] Carboxyhemoglobin (BldA) [Mass fraction] 2.9 High [facility] Chloride [Moles/Vol] 107 mmol/L 98 - 10 8 mmol/L [facility] CO2 (BldV) [Partial pressure] 34.1 mm[Hg] Low [facility] Glucose post fast [Mass/Vol] 493 mg/dL Critically high 65 - 99 mg/dL [facility] HCO3 (Bld) [Moles/Vol] 19.0 mmol/L Low 24.0 - 28.0 mmol/L [facility] Hematocrit (BldA) [Volume fraction] 35.4 % Low 41.0 - 53.0 % [facility] Hemoglobin (Bld) [Mass/Vol] 11.5 g/dL Low 13.5 - 17.5 g/dL [facility] Inhaled oxygen concentration 28 % [facility] Inhaled oxygen flow rate 2 L/min [facility] Interpretation and review of laboratory results Abnormal [facility] Lactate [Moles/Vol] 1.8 mmol/L 0.6 - 2. 0 mmol/L [facility] Methemoglobin (BldA) [Mass fraction] % 0.0 - 2.0 % [facility] Oxygen (BldV) [Partial pressure] 63 mm[Hg] High [facility] Oxygen saturation in Venous blood 91.7 % High 40.0 - 70.0 % [facility] Oxyhemoglobin (BldA) [Mass fraction] 88.7 % No established reference range [facility] pH (BldV) 7.36 [pH] 7.32 - 7.42 [facility] Potassium [Moles/Vol] 4.7 mmol/L 3.5 - 5.1 mmol/L [facility] Sodium [Moles/Vol] 138 mmol/L 135 - 145 mmol/L [facility] Specimen source Nom (Unsp spec) Not specified [facility] Phosphate [Mass/Vol]on 11-27 Interpretation and review of laboratory results Normal [facility] Interpretation and review of laboratory results Abnormal [facility] Interpretation and review of laboratory results Normal [facility] Interpretation and review of laboratory results Normal [facility] Interpretation and review of laboratory results Abnormal [facility] Phosphoruson 11-27-2023 Phosphate [Mass/Vol] 2.6 mg/dL 2.3 - 3 .7 mg/dL [facility] Phosphate [Mass/Vol] 4.1 mg/dL High 2.3 - 3 .7 mg/dL [facility] Phosphate [Mass/Vol] 3.0 mg/dL 2.3 - 3 .7 mg/dL [facility] Phosphate [Mass/Vol] 2.3 mg/dL 2.3 - 3 .7 mg/dL [facility] Phosphate [Mass/Vol] 4.1 mg/dL High 2.3 - 3 .7 mg/dL [facility] Reflex Lactic Acid, Plasmaon 11-27-2023 Interpretation and review of laboratory results Normal [facility] Lactate [Moles/Vol] 2.0 mmol/L 0.6 - 2. 0 mmol/L [facility] Interpretation and review of laboratory results Abnormal [facility] Lactate [Moles/Vol] 2.8 mmol/L High 0.6 - 2. 0 mmol/L [facility] Respiratory pathogens DNA an d RNA panel ALICE+non-probe (Nph)Ordered By: Melania Freeman on 11-27-2023 Adenovirus DNA ALICE+non-probe Ql (Nph) Not detected Not Detected [facility] B. parapertussis [id number] DNA ALICE+non-probe Ql (Nph) Not detected Not Detected [facility] B. pertussis toxin promoter region ALICE+non-probe Ql (Nph) Not detected Not Detected [facility] C. pneumoniae DNA ALICE+non-probe Ql (Nph) Not detected Not Detected [facility] FLUAV RNA ALICE+non-probe Ql (Nph) Not detected Not Detected [facility] FLUBV RNA ALICE+non-probe Ql (Nph) Not detected Not Detected [facility] HCoV 229E RNA ALICE+non-probe Ql (Nph) Not detected Not Detected [facility] HCoV HKU1 RNA ALICE+non-probe Ql (Nph) Not detected Not Detected [facility] HCoV NL63 RNA ALICE+non-probe Ql (Nph) Not detected Not Detected [facility] HCoV OC43 RNA ALICE+non-probe Ql (Nph) Not detected Not Detected [facility] hMPV RNA ALICE+non-probe Ql (Nph) Not detected Not Detected [facility] Interpretation and review of laboratory results Normal [facility] M. pneumoniae DNA ALICE+non-probe Ql (Nph) Not detected Not Detected [facility] h Parainfluenza virus 1 RNA ALICE+non-probe Ql (Nph) Not detected Not Detected [facility] Parainfluenza virus 2 RNA ALICE+non-probe Ql (Nph) Not detected Not Detected [facility] Parainfluenza virus 3 RNA ALICE+non-probe Ql (Nph) Not detected Not Detected [facility] Parainfluenza virus 4 RNA ALICE+non-probe Ql (Nph) Not detected Not Detected [facility] Rhinovirus+Enterovirus RNA ALICE+non-probe Ql (Nph) Not detected Not Detected [facility] RSV RNA ALICE+non-probe Ql (Nph) Not detected Not Detected [facility] SARS-CoV-2 (COVID-19) RNA ALICE+non-probe Ql (Nph) Not detected Not Detected [facility] S. pneumoniae Urine AntigenO rdered By: Maxine Hill on 11-27-2023 Interpretation and review of laboratory results Normal [facility] S. pneumoniae Ag Ql (U) Negative Presumptive Negative for Pneumococcal pneumoniae [facility] TSH DL <= 0.005 mIU/L Qnon 0 11-27-2023 Interpretation and review of laboratory results Normal [facility] TSH Qn 0.35 m[IU]/L [facility] Tropinin I.cardiac panel Hig h sensitivity methodon 11-27-2023 Interpretation and review of laboratory results Abnormal [facility] Less than 99th percentile of normal range [...] performed using a different testing methodology at [facility] than at other [facility]. Direct result comparisons should only be made within the same method. [facility] Troponin I, High Sensitivity on 11-27-2023 Tropinin I.cardiac panel High sensitivity method 6445 ng/L Critically high 0 - 20 ng/L [facility] Comment on above: Previous result verj luis fied on 11/26/2023 2158 on specimen/case [id number] called with component [facility] for procedure Troponin I, High Sensitivity with value 2,361 ng/L. Troponin x 2 (Now and Repeat in 3 hours)Ordered By: Stephanie Carlton on 11-27-2023 Delta % Troponin I -6 % <20% of Baseline Troponin [facility] Troponin I Delta Change Probable non-acute cardiac injury or late presentation of acute injury. [facility] Interpretation and review of laboratory results Abnormal [facility] Troponin I 9349 ng/L Critically high NINF - 59 ng/L [facility] Troponin x 2 (Now and Repeat in 3 hours)on 11-27-2023 Interpretation and review of laboratory results Abnormal [facility] Troponin I 9973 ng/L Critically high NINF - 59 ng/L [facility] Troponin I Interpretation Possible acute cardiac injury. [facility] XR Chest PA and Abdomen APon 11-27-2023 [employer] RIS GE RIS [facility] Radiology Study observation (narrative) [facility] XR Chest PA and Abdomen APOr dered By: Malika Painting on 11-27-2023 [facility] Work Phone: aPTT Coag (Bld) [Time]Ordere d By: Becky Mercado on 11-27-2023 Interpretation and review of laboratory results Abnormal [facility] [employer] Coag (Bld) [Time]Ordere d By: Anjali Hartmann on 11-27-2023 Interpretation and review of laboratory results Abnormal [facility] CBC W Auto Differential pane l (Bld)on 11-26-2023 Basophils (Bld) [#/Vol] 0.05 10*3/uL [facility] Basophils/100 WBC (Bld) 0.2 % 0.0 - 2.0 % [facility] Eosinophils (Bld) [#/Vol] 0.00 10*3/uL [facility] Eosinophils/100 WBC (Bld) 0.0 % 0.0 - 6.0 % [facility] Erythrocyte distribution width (RBC) [Ratio] 13.8 % 11.5 - 14.5 % [facility] Hematocrit (Bld) [Volume fraction] 38.0 % Low 41.0 - 52.0 % [facility] Hemoglobin (Bld) [Mass/Vol] 12.2 g/dL Low 13.5 - 17.5 g/dL [facility] Immature granulocytes (Bld) [#/Vol] 0.12 10*3/uL [facility] Immature granulocytes/100 WBC (Bld) 0.6 % 0.0 - 0.9 % [facility] Comment on above: Immature Granulocyte Count (IG) includes promyelocytes, myelocytes and metamyelocytes but does not include bands. Percent differential counts (%) should be interpreted in the context of the absolute cell counts (cells/UL). Interpretation and review of laboratory results Abnormal [facility] Lymphocytes (Bld) [#/Vol] 2.01 10*3/uL [facility] Lymphocytes/100 WBC (Bld) 9.8 % 13.0 - 44.0 % [facility] MCH (RBC) [Entitic mass] 30.5 pg 26.0 - 34.0 pg [facility] MCHC (RBC) [Mass/Vol] 32.1 g/dL 32.0 - 36.0 g/dL [facility] MCV (RBC) [Entitic vol] 95 fL 80 - 100 fL [facility] Monocytes (Bld) [#/Vol] 0.75 10*3/uL [facility] Monocytes/100 WBC (Bld) 3.7 % 2.0 - 10.0 % [facility] Neutrophils (Bld) [#/Vol] 17.49 10*3/uL High [facility] Comment on above: Percent differential counts (%) should be interpreted in the context of the absolute cell counts (cells/uL). Neutrophils/100 WBC (Bld) 85.7 % 40.0 - 80.0 % [facility] Nucleated RBC/100 WBC (Bld) [Ratio] 0.0 % [facility] Platelets (Bld) [#/Vol] 281 10*3/uL [facility] RBC (Bld) [#/Vol] 4.00 10*6/uL Low [facility] WBC (Bld) [#/Vol] 20.4 10*3/uL High [facility] Comprehensive metabolic 2000 panelon 11-26-2023 Albumin BCP dye [Mass/Vol] 4.2 g/dL 3.4 - 5.0 g/dL [facility] ALP [Catalytic activity/Vol] 101 U/L 33 - 136 U/L [facility] ALT With P-5'-P [Catalytic activity/Vol] 38 U/L 10 - 52 U/L [facility] Comment on above: Patients treated wit h Sulfasalazine may generate falsely decreased results for ALT. Anion gap [Moles/Vol] 17 mmol/L 10 - 20 mmol/L [facility] AST With P-5'-P [Catalytic activity/Vol] 53 U/L High 9 - 39 U/L [facility] Bilirubin [Mass/Vol] 0.6 mg/dL 0.0 - 1 .2 mg/dL [facility] Calcium [Mass/Vol] 9.2 mg/dL 8.6 - 10. 3 mg/dL [facility] Chloride [Moles/Vol] 106 mmol/L 98 - 10 7 mmol/L [facility] CO2 [Moles/Vol] 17 mmol/L Low 21 - 32 mmol/L [facility] Creatinine [Mass/Vol] 1.96 mg/dL High 0.50 - 1.30 mg/dL [facility] GFR/1.73 sq M.predicted among non-blacks MDRD (S/P/Bld) [Vol rate/Area] 34 mL/min/{1.73_m2} Low - PINF [facility] Comment on above: Calculations of albin mated GFR are performed using the 2020 CKD-EPI Study Refit equation without the race variable for the IDMS-Traceable creatinine methods. https://jasn.asnjournals.org/content//ASN.50043 39897 Glucose [Mass/Vol] 492 mg/dL Critically high 74 - 99 mg/d L [facility] Comment on above: Confirmed by repeat analysis Interpretation and review of laboratory results Abnormal [facility] Potassium [Moles/Vol] 4.5 mmol/L 3.5 - 5.3 mmol/L [facility] Protein [Mass/Vol] 6.7 g/dL 6.4 - 8.2 g/dL [facility] Sodium [Moles/Vol] 135 mmol/L Low 136 - 145 mmol/L [facility] Urea nitrogen [Mass/Vol] 35 mg/dL High 6 - 23 mg/dL [facility] Critical Careon 11-26-2023 Ger Aguilera DO 11/27/2023 1:19 AM Critical Care Performed by: Ger Aguilera DO Authorized by: Ger Aguilera DO Critical care provider statement: Critical care start time: 11/26/2023 11:17 PM Critical care end time: 11/27/2023 1:17 AM Critical care time was exclusive of: Separately billable procedures and treating other patients Critical care was necessary to treat or prevent imminent or life-threatening deterioration of the following conditions: Cardiac failure and metabolic crisis Critical care was time spent personally by me on the following activities: Discussions with consultants, evaluation of patient's response to treatment, examination of patient, interpretation of cardiac output measurements, obtaining history from patient or surrogate, ordering and performing treatments and interventions, ordering and review of laboratory studies, ordering and review of radiographic studies, pulse oximetry and re-evaluation of patient's condition I assumed direction of critical care for this patient from another provider in my specialty: no Care discussed with: accepting provider at another facility [facility] Work Phone: [facility] Work Phone: Lactateon 11-26-2023 Lactate [Moles/Vol] 3.2 mmol/L High 0.4 - 2. 0 mmol/L [facility] Lactate [Moles/Vol] 3.8 mmol/L High 0.4 - 2. 0 mmol/L [facility] Lactate [Moles/Vol]on 2023 Interpretation and review of laboratory results Abnormal [facility] Venipuncture immediately after or during the administration of Metamizole may lead to falsely low results. Testing should be performed immediately prior to Metamizole dosing. [facility] Interpretation and review of laboratory results Abnormal [facility] Venipuncture immediately after or during the administration of Metamizole may lead to falsely low results. Testing should be performed immediately prior to Metamizole dosing. [facility] MRSA DNA ALICE+probe Ql (Nose) on 11-26-2023 Interpretation and review of laboratory results Normal [facility] MRSA DNA ALICE+probe Ql (Unsp spec) Not detected Not Detected [facility] This assay is an FDA-approved in vitro diagnostic nucleic acid amplification test for the detection of methicillin-resistant Staphylococcus aureus (MRSA) DNA directly from nasal swabs in patients at risk for nasal colonization. MRSA NxG is intended to aid in the prevention and control of MRSA infections in healthcare settings. This assay is NOT intended to diagnose, guide, or monitor treatment for MRSA infections, or provide results of susceptibility to methicillin. A negative result does not preclude MRSA nasal colonization. Test performance has not been evaluated in patients less than two years of age. [facility] Magnesiumon 11-26-2023 Magnesium [Mass/Vol] 2.20 mg/dL 1.60 - 2.40 mg/dL [facility] Magnesium [Mass/Vol]on 11-26 Interpretation and review of laboratory results Normal [facility] Natriuretic peptide B [Mass/ Vol]on 11-26-2023 Interpretation and review of laboratory results Abnormal [facility] Natriuretic peptide B (Bld) [Mass/Vol] 902 pg/mL High 0 - 99 pg/mL [facility] <100 pg/mL - Heart failure unlikely 100-299 pg/mL - Intermediate probability of acute heart failure exacerbation. Correlate with clinical context and patient history. >=300 pg/mL - Heart Failure likely. Correlate with clinical context and patient history. BNP testing is performed using different testing methodology at [facility] than at other [facility]. Direct result comparisons should only be made within the same method. [facility] No Panel Informationon 11-26 [facility] Interpretation and review of laboratory results Normal [facility] PT Coag (PPP) [Time]on 11-26 INR Coag (PPP) [Relative time] 1.1 {INR} 0.9 - 1.1 [facility] Protime-INRon 11-26-2023 PT Coag (PPP) [Time] 12.3 s [facility] Tropinin I.cardiac panel Hig h sensitivity methodon 11-26-2023 Interpretation and review of laboratory results Abnormal [facility] Less than 99th percentile of normal range [...] performed using a different testing methodology at [facility] than at other [facility]. Direct result comparisons should only be made within the same method. [facility] Interpretation and review of laboratory results Abnormal [facility] Less than 99th percentile of normal range [...] performed using a different testing methodology at [facility] than at other [facility]. Direct result comparisons should only be made within the same method. [facility] Troponin I, High Sensitivity on 11-26-2023 Tropinin I.cardiac panel High sensitivity method 3473 ng/L Critically high 0 - 20 ng/L [facility] Comment on above: Previous result veri fied on 11/26/2023 2158 on specimen/case [id number] called with component [facility] for procedure Troponin I, High Sensitivity with value 2,361 ng/L. Tropinin I.cardiac panel High sensitivity method 2361 ng/L Critically high 0 - 20 ng/L [facility] XR Chest Single viewon 11-26 Pulmonary vascular congestive change and edema and small bilateral pleural effusions. There is asymmetric opacity in the right lower lung concerning for superimposed pneumonia. 10 mm nodular opacity at the left lung base; follow-up dedicated CT chest is recommended to exclude underlying pulmonary nodule. MACRO: None Signed by: Ghassan Tovar 11/26/2023 10:02 PM Dictation workstation: [id number] MMODAL Interpreted By: Ghassan Tovar, STUDY: XR CHEST 1 VIEW; 11/26/2023 9:31 pm INDICATION: Signs/Symptoms:dyspne a. COMPARISON: 10/13/2023 ACCESSION NUMBER(S): [id number] ORDERING CLINICIAN: GER AGUILERA FINDINGS: The cardiac silhouette is stable in size. There is pulmonary vascular congestive change and edema. Small bilateral pleural effusions. There is 10 mm nodular opacity at the left lung base. No pneumothorax [facility] Ghassan Tovar MD - 11/26/2023 Interpreted By: Ghassan Tovar, STUDY: XR CHEST 1 VIEW; 11/26/2023 9:31 pm INDICATION: Signs/Symptoms:dyspne a. COMPARISON: 10/13/2023 ACCESSION NUMBER(S): [id number] ORDERING CLINICIAN: GER AGUILERA FINDINGS: The cardiac silhouette is stable in size. There is pulmonary vascular congestive change and edema. Small bilateral pleural effusions. There is 10 mm nodular opacity at the left lung base. No pneumothorax IMPRESSION: Pulmonary vascular congestive change and edema and small bilateral pleural effusions. There is asymmetric opacity in the right lower lung concerning for superimposed pneumonia. 10 mm nodular opacity at the left lung base; follow-up dedicated CT chest is recommended to exclude underlying pulmonary nodule. MACRO: None Signed by: Ghassan Tovar 11/26/2023 10:02 PM Dictation workstation: [id number] [facility] Work Phone: Radiology Study observation (narrative) [facility] Work Phone: XR Chest Single viewOrdered By: Ghassan Tovar on 11-26-2023 [facility] Work Phone: aPTTon 11-26-2023 aPTT Coag (PPP) [Time] 38 s Un [facility] aPTT Coag (PPP) [Time]on The APTT is no longe r used for monitoring Unfractionated Heparin Therapy. For monitoring Heparin Therapy, use the Heparin Assay. [facility] Absolute lymphocyte countOrd ered By: Ryley Jeter on 11-25-2023 Lymphocytes Auto (Unsp spec) [#/Vol] 1.79 10*3/uL 0.83-4.51 [facility] Automated lymphocyte count a s percentage of total leukocytesOrdered By: Ryley Jeter on 11-25-2023 Lymphocytes/100 WBC Auto (Unsp spec) 19.7 % 19-41 [facility] Basophil percentageOrdered B y: Ryley Jeter on 11-25-2023 Basophils/100 WBC (Bld) 1.0 % 0-1 [facility] Bilirubin [Mass/Vol] 0.50 mg/dL 0.20-1.00 [facility] Comment on above: For patients on eltr ombopag therapy, use of Dimension Hagan TBIL is not recommended. Chloride [Moles/Vol] 113 mmol/L 98-107 [facility] Eosinophils/100 WBC (Bld) 2.3 % 0-5 [facility] Glucose [Mass/Vol] 130 mg/dL 74-106 [facility] Comment on above: Fasting Glucose resu lt greater than or equal to 126 mg/dL suggests DIABETES MELLITUS per A.D.A. criteria. Hemoglobin (Bld) [Mass/Vol] 12.2 g/dL 13.0-16.5 [facility] Monocytes/100 WBC (Bld) 7.5 % 0-10 [facility] Neutrophils (Bld) [#/Vol] 6.3 10*3/uL 2.0-7.7 [facility] Neutrophils/100 WBC (Bld) 69.2 % 47-70 [facility] Potassium [Moles/Vol] 4.3 mmol/L 3.5-5.1 [facility] Protein [Mass/Vol] 7.1 g/dL 6.4-8.2 [facility] Sodium [Moles/Vol] 142 mmol/L 136-145 [facility] WBC (Bld) [#/Vol] 9.1 10*3/uL 4.4-11.0 [facility] Determination of erythrocyte mean corpuscular volume (MCV)Ordered By: Ryley Jeter on 11-25-2023 MCV (RBC) [Entitic vol] 93.5 fL 80-94 [facility] Erythrocyte distribution wid th ratioOrdered By: [facility] on 11-25-2023 Erythrocyte distribution width (RBC) [Ratio] 14.1 % 11.6-14.6 [facility] Erythrocyte distribution wid th standard deviationOrdered By: Ryley Steffany on 11-25-2023 Erythrocyte distribution width (RBC) [Entitic vol] 47.9 fL 35.1-43.9 [facility] Hematocrit Auto (Bld) [Volum e fraction]Ordered By: Ryley Jeter on 11-25-2023 Hematocrit (Bld) [Volume fraction] 37.7 % 40-54 [facility] Immature granulocytes/100 WB C Auto (Bld)Ordered By: [facility] on 11-25-2023 Immature granulocytes/100 WBC (Bld) 0.300 % 0.0-0.9 [facility] Comment on above: IG% - Immature Granu locytes (promyelocytes, myelocytes and metamyelocytes) > 1% indicates that a LEFT SHIFT is Present. Laboratory - Chemistry and C hemistry - challengeOrdered By: Ryley Jeter on 11-25-2023 Albumin/Globulin [Mass ratio] 1.0 {ratio} 0.9-2.4 [facility] ALP [Catalytic activity/Vol] 98 U/L 45-117 [facility] ALT [Catalytic activity/Vol] 25 U/L 16-61 [facility] CO2 [Moles/Vol] 25.0 mmol/L 21.0-32.0 [facility] Globulin (S) [Mass/Vol] 3.5 g/dL 2.2-4.2 [facility] Urea nitrogen/Creatinine [Mass ratio] 13.5 mg/mg 10-20 [facility] Laboratory - Hematology and Cell countsOrdered By: Ryley Jeter on 11-25-2023 MCH (RBC) [Entitic mass] 30.3 pg 27.0-32.0 [facility] MCHC (RBC) [Mass/Vol] 32.4 g/dL 32-36 [facility] Nucleated RBC/100 WBC (Bld) [Ratio] 0 % 0-5 [facility] Platelets (Bld) [#/Vol] 239 10*3/uL 150-450 [facility] No Panel InformationOrdered By: Ryley Jeter on 11-25-2023 Estimated GFR (MDRD) Amer 55 mL/min >60 [facility] Comment on above: GFR Calc Estimated GFR (MDRD) Non-Af Amer 46 mL/min >60 [facility] Comment on above: Non- GFR Calc Platelet mean volume Kodi-Ec ker (Bld) [Entitic vol]Ordered By: Ryley Jeter on 11-25-2023 Platelet mean volume (Bld) [Entitic vol] 11.3 fL 6.2-12.0 [facility] RBC Auto (Bld) [#/Vol]Ordere d By: Ryley Jeter on 11-25-2023 RBC (Bld) [#/Vol] 4.03 10*6/uL 4.6-6.2 [facility] Serum or plasma calcium nikkie urement (mass/volume)Ordered By: Ryley Jeter on 11-25-2023 Calcium [Mass/Vol] 9.5 mg/dL 8.5-10.1 [facility] Serum or plasma creatinine m easurement (mass/volume)Ordered By: Ryley Jeter on 11-25-2023 Creatinine [Mass/Vol] 1.56 mg/dL 0.70-1.30 [facility] Comment on above: The validity of the calculated GFR & GFRAA in patients over 70 years has not been determined. Clinical correlation is essential. Serum or plasma thyroid stim ulating hormone (TSH) measurement (units/volume)Ordered By: Ryley Jeter on 11-25-2023 TSH Qn 0.80 uIU/mL 0.358-3.74 [facility] Serum or plasma urea nitroge n measurement (mass/volume)Ordered By: Ryley Jeter on 11-25-2023 Urea nitrogen [Mass/Vol] 21 mg/dL 7-18 [facility] Thin prep Papanicolaou smear with manual screeningOrdered By: Ryley Jeter on 11-25-2023 Thin prep Papanicolaou smear with manual screening 3.6 g/dL 3.2-5.0 [facility] Thin prep Papanicolaou smear with manual screening 23 U/L 15-37 [facility] Thin prep Papanicolaou smear with manual screening 4 5-15 [facility] Basophil percentageOrdered B y: Jana Ferguson on 10-22-2023 Chloride [Moles/Vol] 111 mmol/L 98-107 [facility] Glucose [Mass/Vol] 120 mg/dL 74-106 [facility] Comment on above: Fasting Glucose resu lt from 100 to 125 mg/dL suggests IMPAIRED HOMEOSTASIS per A.D.A. criteria. Potassium [Moles/Vol] 4.7 mmol/L 3.5-5.1 [facility] Sodium [Moles/Vol] 140 mmol/L 136-145 [facility] WBC (Bld) [#/Vol] 9.1 10*3/uL 4.4-11.0 [facility] Blood erythrocytes count (nu mber/volume)Ordered By: Jana Ferguson on 10-22-2023 RBC (Bld) [#/Vol] 4.16 10*6/uL 4.6-6.2 [facility] Blood hemoglobin measurement (mass/volume)Ordered By: Jana Ferguson on 10-22-2023 Hemoglobin (Bld) [Mass/Vol] 12.3 g/dL 13.0-16.5 [facility] Blood platelet mean volumeOr dered By: Jana Ferguson on 10-22-2023 Platelet mean volume (Bld) [Entitic vol] 11.6 fL 6.2-12.0 [facility] Determination of erythrocyte mean corpuscular volume (MCV)Ordered By: Jana Ferguson on 10-22-2023 MCV (RBC) [Entitic vol] 93.0 fL 80-94 [facility] Hematocrit Auto (Bld) [Volum e fraction]Ordered By: Jana Ferguson on 10-22-2023 Hematocrit (Bld) [Volume fraction] 38.7 % 40-54 [facility] Laboratory - Chemistry and C hemistry - challengeOrdered By: Jana Ferguson on 10-22-2023 CO2 [Moles/Vol] 27.0 mmol/L 21.0-32.0 [facility] Urea nitrogen/Creatinine [Mass ratio] 20.9 mg/mg 10-20 [facility] Laboratory - Hematology and Cell countsOrdered By: Jana Ferguson on 10-22-2023 Erythrocyte distribution width (RBC) [Entitic vol] 44.3 fL 35.1-43.9 [facility] Erythrocyte distribution width (RBC) [Ratio] 13.0 % 11.6-14.6 [facility] MCH (RBC) [Entitic mass] 29.6 pg 27.0-32.0 [facility] MCHC Auto (RBC) [Mass/Vol]Or dered By: Jana Ferguson on 10-22-2023 MCHC (RBC) [Mass/Vol] 31.8 g/dL 32-36 [facility] No Panel InformationOrdered By: Jana Ferguson on 10-22-2023 Estimated GFR (MDRD) Amer 40 mL/min >60 [facility] Comment on above: GFR Calc Estimated GFR (MDRD) Non-Af Amer 33 mL/min >60 [facility] Comment on above: Non- GFR Calc Platelets bldOrdered By: Jadyn Ferguson on 10-22-2023 Platelets (Bld) [#/Vol] 304 10*3/uL 150-450 [facility] Serum or plasma calcium nikkie urement (mass/volume)Ordered By: Jana Ferguson on 10-22-2023 Calcium [Mass/Vol] 9.1 mg/dL 8.5-10.1 [facility] Serum or plasma creatinine m easurement (mass/volume)Ordered By: Jana Ferguson on 10-22-2023 Creatinine [Mass/Vol] 2.06 mg/dL 0.70-1.30 [facility] Comment on above: The validity of the calculated GFR & GFRAA in patients over 70 years has not been determined. Clinical correlation is essential. Serum or plasma urea nitroge n measurement (mass/volume)Ordered By: Jana Ferguson on 10-22-2023 Urea nitrogen [Mass/Vol] 43 mg/dL 7-18 [facility] Thin prep Papanicolaou smear with manual screeningOrdered By: Jana Ferguson on 10-22-2023 Thin prep Papanicolaou smear with manual screening 2 5-15 [facility] Basic metabolic 2000 panelon 10-13-2023 Anion gap [Moles/Vol] 17 mmol/L 10 - 20 mmol/L [facility] Calcium [Mass/Vol] 8.3 mg/dL Low 8.6 - 10. 3 mg/dL [facility] Chloride [Moles/Vol] 102 mmol/L 98 - 10 7 mmol/L [facility] CO2 [Moles/Vol] 22 mmol/L 21 - 32 mmol/L [facility] Creatinine [Mass/Vol] 2.30 mg/dL High 0.50 - 1.30 mg/dL [facility] GFR/1.73 sq M.predicted MDRD (S/P/Bld) [Vol rate/Area] 28 mL/min/{1.73_m2} Low - PINF [facility] Comment on above: Calculations of albin mated GFR are performed using the 2020 CKD-EPI Study Refit equation without the race variable for the IDMS-Traceable creatinine methods. https://jasn.asnjournals.org/content//ASN.63299 36209 Glucose [Mass/Vol] 327 mg/dL High 74 - 99 mg/dL [facility] Interpretation and review of laboratory results Abnormal [facility] Potassium [Moles/Vol] 4.9 mmol/L 3.5 - 5.3 mmol/L [facility] Sodium [Moles/Vol] 136 mmol/L 136 - 145 mmol/L [facility] Urea nitrogen [Mass/Vol] 57 mg/dL High 6 - 23 mg/dL [facility] CBC W Auto Differential pane l (Bld)on 10-13-2023 Basophils (Bld) [#/Vol] 0.02 10*3/uL [facility] Basophils/100 WBC (Bld) 0.1 % 0.0 - 2.0 % [facility] Eosinophils (Bld) [#/Vol] 0.00 10*3/uL [facility] Eosinophils/100 WBC (Bld) 0.0 % 0.0 - 6.0 % [facility] Erythrocyte distribution width (RBC) [Ratio] 13.2 % 11.5 - 14.5 % [facility] Hematocrit (Bld) [Volume fraction] 36.4 % Low 41.0 - 52.0 % [facility] Hemoglobin (Bld) [Mass/Vol] 12.4 g/dL Low 13.5 - 17.5 g/dL [facility] Immature granulocytes (Bld) [#/Vol] 0.11 10*3/uL [facility] Immature granulocytes/100 WBC (Bld) 0.6 % 0.0 - 0.9 % [facility] Comment on above: Immature Granulocyte Count (IG) includes promyelocytes, myelocytes and metamyelocytes but does not include bands. Percent differential counts (%) should be interpreted in the context of the absolute cell counts (cells/UL). Interpretation and review of laboratory results Abnormal [facility] Lymphocytes (Bld) [#/Vol] 1.30 10*3/uL [facility] Lymphocytes/100 WBC (Bld) 7.3 % 13.0 - 44.0 % [facility] MCH (RBC) [Entitic mass] 31.0 pg 26.0 - 34.0 pg [facility] MCHC (RBC) [Mass/Vol] 34.1 g/dL 32.0 - 36.0 g/dL [facility] MCV (RBC) [Entitic vol] 91 fL 80 - 100 fL [facility] Monocytes (Bld) [#/Vol] 1.15 10*3/uL High [facility] Monocytes/100 WBC (Bld) 6.5 % 2.0 - 10.0 % [facility] Neutrophils (Bld) [#/Vol] 15.21 10*3/uL [facility] Comment on above: Percent differential counts (%) should be interpreted in the context of the absolute cell counts (cells/uL). Neutrophils/100 WBC (Bld) 85.5 % 40.0 - 80.0 % [facility] Nucleated RBC/100 WBC (Bld) [Ratio] 0.0 % [facility] Platelets (Bld) [#/Vol] 153 10*3/uL [facility] RBC (Bld) [#/Vol] 4.00 10*6/uL Low Unive [facility] WBC (Bld) [#/Vol] 17.8 10*3/uL High [facility] Glucose Test strip manual (B ld) [Mass/Vol]on 10-13-2023 Glucose [Mass/Vol] 329 mg/dL High 74 - 99 mg/dL [facility] Interpretation and review of laboratory results Abnormal [facility] Glucose [Mass/Vol] 304 mg/dL High 74 - 99 mg/dL [facility] Interpretation and review of laboratory results Abnormal [facility] Glucose [Mass/Vol] 305 mg/dL High 74 - 99 mg/dL [facility] Interpretation and review of laboratory results Abnormal [facility] XR Chest Single viewon 10-13 Right upper lobe airspace consolidation, concerning for pneumonia. Clinical correlation and continued follow-up until clearing is recommended. MACRO: None. Signed by: Jaret Walker 10/13/2023 11:21 AM Dictation workstation: [id number] [facility]AL Interpreted By: Jaret Walker, STUDY: XR CHEST 1 VIEW 10/13/2023 8:31 am INDICATION: Signs/Symptoms:Acute dyspnea COMPARISON: 10/11/2023 ACCESSION NUMBER(S): [id number] ORDERING CLINICIAN: VERA RIVERA TECHNIQUE: A single AP portable radiograph of the chest was obtained. FINDINGS: Multiple cardiac monitoring leads are seen over the chest. Airspace consolidation is seen in the inferior aspect of the right upper lobe, concerning for pneumonia. No pneumothorax is identified. The cardiac silhouette is within normal limits for size. [facility] Jaret Walker MD - 10/13/2023 Interpreted By: Jaret Walker, STUDY: XR CHEST 1 VIEW 10/13/2023 8:31 am INDICATION: Signs/Symptoms:Acute dyspnea COMPARISON: 10/11/2023 ACCESSION NUMBER(S): [id number] ORDERING CLINICIAN: VERA RIVERA TECHNIQUE: A single AP portable radiograph of the chest was obtained. FINDINGS: Multiple cardiac monitoring leads are seen over the chest. Airspace consolidation is seen in the inferior aspect of the right upper lobe, concerning for pneumonia. No pneumothorax is identified. The cardiac silhouette is within normal limits for size. IMPRESSION: Right upper lobe airspace consolidation, concerning for pneumonia. Clinical correlation and continued follow-up until clearing is recommended. MACRO: None. Signed by: Jaret Walker 10/13/2023 11:21 AM Dictation workstation: [id number] [facility] Work Phone: Radiology Study observation (narrative) [facility] Work Phone: XR Chest Single viewOrdered By: Jaret Walker on 10-13-2023 [facility] Work Phone: Basic metabolic 2000 panelon 10-12-2023 Anion gap [Moles/Vol] 13 mmol/L 10 - 20 mmol/L [facility] Calcium [Mass/Vol] 8.2 mg/dL Low 8.6 - 10. 3 mg/dL [facility] Chloride [Moles/Vol] 103 mmol/L 98 - 10 7 mmol/L [facility] CO2 [Moles/Vol] 23 mmol/L 21 - 32 mmol/L [facility] Creatinine [Mass/Vol] 2.11 mg/dL High 0.50 - 1.30 mg/dL [facility] GFR/1.73 sq M.predicted MDRD (S/P/Bld) [Vol rate/Area] 31 mL/min/{1.73_m2} Low - PINF [facility] Comment on above: Calculations of albin mated GFR are performed using the 2020 CKD-EPI Study Refit equation without the race variable for the IDMS-Traceable creatinine methods. https://jasn.asnjournals.org/content/early/ASN.40224 74738 Glucose [Mass/Vol] 214 mg/dL High 74 - 99 mg/dL [facility] Interpretation and review of laboratory results Abnormal [facility] Potassium [Moles/Vol] 4.4 mmol/L 3.5 - 5.3 mmol/L [facility] Sodium [Moles/Vol] 135 mmol/L Low 136 - 145 mmol/L [facility] Urea nitrogen [Mass/Vol] 44 mg/dL High 6 - 23 mg/dL [facility] CBC W Auto Differential pane l (Bld)on 10-12-2023 Basophils (Bld) [#/Vol] 0.03 10*3/uL [facility] Basophils/100 WBC (Bld) 0.1 % 0.0 - 2.0 % [facility] Eosinophils (Bld) [#/Vol] 0.00 10*3/uL [facility] Eosinophils/100 WBC (Bld) 0.0 % 0.0 - 6.0 % [facility] Erythrocyte distribution width (RBC) [Ratio] 13.0 % 11.5 - 14.5 % [facility] Hematocrit (Bld) [Volume fraction] 34.5 % Low 41.0 - 52.0 % [facility] Hemoglobin (Bld) [Mass/Vol] 11.8 g/dL Low 13.5 - 17.5 g/dL [facility] Immature granulocytes (Bld) [#/Vol] 0.09 10*3/uL [facility] Immature granulocytes/100 WBC (Bld) 0.4 % 0.0 - 0.9 % [facility] Comment on above: Immature Granulocyte Count (IG) includes promyelocytes, myelocytes and metamyelocytes but does not include bands. Percent differential counts (%) should be interpreted in the context of the absolute cell counts (cells/UL). Interpretation and review of laboratory results Abnormal [facility] Lymphocytes (Bld) [#/Vol] 1.79 10*3/uL [facility] Lymphocytes/100 WBC (Bld) 8.6 % 13.0 - 44.0 % [facility] MCH (RBC) [Entitic mass] 30.8 pg 26.0 - 34.0 pg [facility] MCHC (RBC) [Mass/Vol] 34.2 g/dL 32.0 - 36.0 g/dL [facility] MCV (RBC) [Entitic vol] 90 fL 80 - 100 fL [facility] Monocytes (Bld) [#/Vol] 1.55 10*3/uL High [facility] Monocytes/100 WBC (Bld) 7.5 % 2.0 - 10.0 % [facility] Neutrophils (Bld) [#/Vol] 17.32 10*3/uL [facility] Comment on above: Percent differential counts (%) should be interpreted in the context of the absolute cell counts (cells/uL). Neutrophils/100 WBC (Bld) 83.4 % 40.0 - 80.0 % [facility] Nucleated RBC/100 WBC (Bld) [Ratio] 0.0 % [facility] Platelets (Bld) [#/Vol] 152 10*3/uL [facility] RBC (Bld) [#/Vol] 3.83 10*6/uL Low Unive [facility] WBC (Bld) [#/Vol] 20.8 10*3/uL High Unive [facility] Glucose Test strip manual (B ld) [Mass/Vol]on 10-12-2023 Glucose [Mass/Vol] 240 mg/dL High 74 - 99 mg/dL [facility] Interpretation and review of laboratory results Abnormal [facility] Glucose [Mass/Vol] 166 mg/dL High 74 - 99 mg/dL [facility] Interpretation and review of laboratory results Abnormal [facility] Glucose [Mass/Vol] 186 mg/dL High 74 - 99 mg/dL [facility] Interpretation and review of laboratory results Abnormal [facility] Glucose [Mass/Vol] 218 mg/dL High 74 - 99 mg/dL [facility] Interpretation and review of laboratory results Abnormal [facility] Glucose [Mass/Vol] 127 mg/dL High 74 - 99 mg/dL [facility] Interpretation and review of laboratory results Abnormal [facility] No Panel Informationon 10-12 Extra Tube Hold for add-ons. [facility] Comment on above: Auto resulted. [facility] CBC W Auto Differential pane l (Bld)on 10-11-2023 Basophils (Bld) [#/Vol] 0.07 10*3/uL [facility] Basophils/100 WBC (Bld) 0.7 % 0.0 - 2.0 % [facility] Eosinophils (Bld) [#/Vol] 0.09 10*3/uL [facility] Eosinophils/100 WBC (Bld) 0.9 % 0.0 - 6.0 % [facility] Erythrocyte distribution width (RBC) [Ratio] 13.0 % 11.5 - 14.5 % [facility] Hematocrit (Bld) [Volume fraction] 36.7 % Low 41.0 - 52.0 % [facility] Hemoglobin (Bld) [Mass/Vol] 12.0 g/dL Low 13.5 - 17.5 g/dL [facility] Immature granulocytes (Bld) [#/Vol] 0.03 10*3/uL [facility] Immature granulocytes/100 WBC (Bld) 0.3 % 0.0 - 0.9 % [facility] Comment on above: Immature Granulocyte Count (IG) includes promyelocytes, myelocytes and metamyelocytes but does not include bands. Percent differential counts (%) should be interpreted in the context of the absolute cell counts (cells/UL). Interpretation and review of laboratory results Abnormal [facility] Lymphocytes (Bld) [#/Vol] 1.34 10*3/uL [facility] Lymphocytes/100 WBC (Bld) 12.9 % 13.0 - 44.0 % [facility] MCH (RBC) [Entitic mass] 30.4 pg 26.0 - 34.0 pg [facility] MCHC (RBC) [Mass/Vol] 32.7 g/dL 32.0 - 36.0 g/dL [facility] [facility] MCV (RBC) [Entitic vol] 93 fL 80 - 100 fL [facility] Monocytes (Bld) [#/Vol] 1.25 10*3/uL High [facility] Monocytes/100 WBC (Bld) 12.0 % 2.0 - 10.0 % [facility] Neutrophils (Bld) [#/Vol] 7.64 10*3/uL High [facility] Comment on above: Percent differential counts (%) should be interpreted in the context of the absolute cell counts (cells/uL). Neutrophils/100 WBC (Bld) 73.2 % 40.0 - 80.0 % [facility] Nucleated RBC/100 WBC (Bld) [Ratio] 0.0 % [facility] Platelets (Bld) [#/Vol] 158 10*3/uL [facility] RBC (Bld) [#/Vol] 3.95 10*6/uL Low [facility] WBC (Bld) [#/Vol] 10.4 10*3/uL [facility] Comprehensive metabolic 2000 panelon 10-11-2023 Albumin BCP dye [Mass/Vol] 3.8 g/dL 3.4 - 5.0 g/dL [facility] ALP [Catalytic activity/Vol] 83 U/L 33 - 136 U/L [facility] ALT With P-5'-P [Catalytic activity/Vol] 13 U/L 10 - 52 U/L [facility] Comment on above: Patients treated wit h Sulfasalazine may generate falsely decreased results for ALT. Anion gap [Moles/Vol] 15 mmol/L 10 - 20 mmol/L [facility] AST With P-5'-P [Catalytic activity/Vol] 18 U/L 9 - 39 U/L [facility] Bilirubin [Mass/Vol] 0.4 mg/dL 0.0 - 1 .2 mg/dL [facility] Calcium [Mass/Vol] 8.5 mg/dL Low 8.6 - 10. 3 mg/dL [facility] Chloride [Moles/Vol] 103 mmol/L 98 - 10 7 mmol/L [facility] CO2 [Moles/Vol] 22 mmol/L 21 - 32 mmol/L [facility] Creatinine [Mass/Vol] 1.83 mg/dL High 0.50 - 1.30 mg/dL [facility] GFR/1.73 sq M.predicted MDRD (S/P/Bld) [Vol rate/Area] 37 mL/min/{1.73_m2} Low - PINF [facility] Comment on above: Calculations of albin mated GFR are performed using the 2020 CKD-EPI Study Refit equation without the race variable for the IDMS-Traceable creatinine methods. https://jasn.asnjournals.org/content//ASN.10614 16043 Glucose [Mass/Vol] 344 mg/dL High 74 - 99 mg/dL [facility] Interpretation and review of laboratory results Abnormal [facility] Potassium [Moles/Vol] 4.4 mmol/L 3.5 - 5.3 mmol/L [facility] Protein [Mass/Vol] 6.3 g/dL Low 6.4 - 8.2 g/dL Un [facility] Sodium [Moles/Vol] 136 mmol/L 136 - 145 mmol/L [facility] Urea nitrogen [Mass/Vol] 30 mg/dL High 6 - 23 mg/dL [facility] Critical Careon 10-11-2023 Aury Rouse DO 10/12/2023 5:15 AM Critical Care Performed by: Aury Rouse DO [...] specialty: no Care discussed with: admitting provider [facility] Work Phone: [facility] Work Phone: D-Dimer, VTE Exclusionon Fibrin D-dimer FEU (PPP) [Mass/Vol] 1869 High NINF [facility] ECG 12-LEADon 10-11-2023 ECG 12-LEAD Ventricular Rate 113 Atrial Rate 113 P-R Interval 148 QRS Duration 82 Q-T Interval 332 QTC Calculation(Bazett) 455 P Malcolm 67 R Malcolm 39 T Malcolm 81 QRS Count 18 Q Onset 220 P Onset 146 P Offset 189 T Offset 386 QTC Fredericia 410 Diagnosis Sinus tachycardia 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 NON-SPECIFIC T-WAVE CHANGES Abnormal EKG Confirmed by Tyrone Bajwa ([id number]) on 10/11/2023 6:18:47 PM Normal [facility] FLUAV and FLUBV RNA ALICE+prob e Nom (Unsp spec)on 10-11-2023 FLUAV RNA ALICE+probe Ql (Resp) Not detected Not Detected [facility] FLUBV RNA ALICE+probe Ql (Resp) Not detected Not Detected [facility] This assay is an in vitro diagnostic multiplex nucleic acid amplification test for the detection and discrimination of Influenza A & B from nasopharyngeal specimens, and has been validated for use at [facility]. Negative results do not preclude Influenza A/B infections, and should not be used as the sole basis for diagnosis, treatment, or other management decisions. If Influenza A/B and RSV PCR results are negative, testing for Parainfluenza virus, Adenovirus and Metapneumovirus is routinely performed for [facility] pediatric oncology and intensive care inpatients, and is available on other patients by placing an add-on request. [facility] Fibrin D-dimer FEU (PPP) [Ma ss/Vol]on 10-11-2023 Interpretation and review of laboratory results Abnormal [facility] The VTE Exclusion D-Dimer assay is reported in ng/mL Fibrinogen Equivalent Units (FEU). Per blueprint reproducer's instructions for use, a value of less [...] assessment model for DVT or PE exclusion.) [facility] Gas panel (BldA)on 3 Apparatus CANNULA [facility] Base excess Calc (Bld) [Moles/Vol] -2.2000 mmol/L Low -2.0 - 3.0 mmol/L [facility] CO2 (Bld) [Partial pressure] 41 mm[Hg] [facility] HCO3 (Bld) [Moles/Vol] 23.2 mmol/L 22.0 - 26.0 mmol/L [facility] Inhaled oxygen concentration 50 % [facility] Interpretation and review of laboratory results Abnormal [facility] Oxygen (Bld) [Partial pressure] 66 mm[Hg] Low [facility] Oxyhemoglobin (BldA) [Mass fraction] 90.6 % Low 94.0 - 98.0 % [facility] pH (Bld) 7.36 [pH] Low 7.38 - 7.42 pH [facility] Glucose Test strip manual (B ld) [Mass/Vol]on 10-11-2023 Glucose [Mass/Vol] 132 mg/dL High 74 - 99 mg/dL [facility] Interpretation and review of laboratory results Abnormal [facility] Glucose [Mass/Vol] 203 mg/dL High 74 - 99 mg/dL [facility] Interpretation and review of laboratory results Abnormal [facility] Glucose [Mass/Vol] 271 mg/dL High 74 - 99 mg/dL [facility] Interpretation and review of laboratory results Abnormal [facility] Glucose [Mass/Vol] 357 mg/dL High 74 - 99 mg/dL [facility] Interpretation and review of laboratory results Abnormal [facility] Glucose [Mass/Vol] 407 mg/dL High 74 - 99 mg/dL [facility] Interpretation and review of laboratory results Abnormal [facility] Glucose [Mass/Vol] 385 mg/dL High 74 - 99 mg/dL [facility] Interpretation and review of laboratory results Abnormal [facility] Glucose [Mass/Vol] 455 mg/dL High 74 - 99 mg/dL [facility] Comment on above: RN/MD NOTIFIED Interpretation and review of laboratory results Abnormal [facility] Glucose [Mass/Vol] 481 mg/dL High 74 - 99 mg/dL [facility] Comment on above: RN/ NOTIFIED Interpretation and review of laboratory results Abnormal [facility] Glucose [Mass/Vol] mg/dL High 74 - 99 mg/dL [facility] Interpretation and review of laboratory results Abnormal [facility] Glucose [Mass/Vol] mg/dL High 74 - 99 mg/dL [facility] Interpretation and review of laboratory results Abnormal [facility] Glucose [Mass/Vol] 571 mg/dL High 74 - 99 mg/dL [facility] Interpretation and review of laboratory results Abnormal [facility] Glucose [Mass/Vol] 562 mg/dL High 74 - 99 mg/dL [facility] Comment on above: RN/ NOTIFIED Interpretation and review of laboratory results Abnormal [facility] Glucose [Mass/Vol] 386 mg/dL High 74 - 99 mg/dL [facility] Interpretation and review of laboratory results Abnormal [facility] Glucose [Mass/Vol]on 023 Interpretation and review of laboratory results Abnormal [facility] Glucose, randomon 10-11-2023 Glucose [Mass/Vol] 654 mg/dL Critically high 74 - 99 mg/d L [facility] Comment on above: Confirmed by repeat analysis Lactateon 10-11-2023 Lactate [Moles/Vol] 1.6 mmol/L 0.4 - 2. 0 mmol/L [facility] Lactate [Moles/Vol]on 2022 Interpretation and review of laboratory results Normal [facility] Venipuncture immediately after or during the administration of Metamizole may lead to falsely low results. Testing should be performed immediately prior to Metamizole dosing. [facility] Natriuretic peptide B [Mass/ Vol]on 10-11-2023 Interpretation and review of laboratory results Abnormal [facility] Natriuretic peptide B (Bld) [Mass/Vol] 251 pg/mL High 0 - 99 pg/mL [facility] <100 pg/mL - Heart failure unlikely 100-299 pg/mL - Intermediate probability of acute heart failure exacerbation. Correlate with clinical context and patient history. >=300 pg/mL - Heart Failure likely. Correlate with clinical context and patient history. BNP testing is performed using different testing methodology at [facility] than at other [facility]. Direct result comparisons should only be made within the same method. [facility] No Panel Informationon 10-11 Atrial Rate 113 BPM [facility] Work Phone: [phone] P Malcolm 67 degrees [facility] Work Phone: [phone] P Offset 189 ms [facility] Work Phone: [phone] P Onset [address] [facility] Work Phone: [phone] RI Interval 148 ms [facility] Work Phone: [phone] Q Onset 220 ms [facility] Work Phone: [phone] QRS Count 18 beats [facility] Work Phone: [phone] QRS Duration 82 ms [facility] Work Phone: [phone] QT Interval 332 ms [facility] Work Phone: [phone] QTC Calculation(Bazett) [address] [facility] Work Phone: [phone] QTC Fredericia 410 ms [facility] Work Phone: [phone] R Malcolm 39 degrees [facility] Work Phone: [phone] T Malcolm 81 degrees [facility] Work Phone: [phone] T Offset 386 ms [facility] Work Phone: [phone] Ventricular Rate 113 BPM [facility] Work Phone: Sinus tachycardia 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 [facility] Comment on above: Auto resulted. [facility] Interpretation and review of laboratory results Normal [facility] ProcalcitoninOrdered By: Teresa Fine on 10-11-2023 Procalcitonin [Mass/Vol] 0.18 ng/mL High NINF - 0.07 ng/mL [facility] Procalcitonin [Mass/Vol]Orde red By: Ismael Fine on 10-11-2023 Interpretation and review of laboratory results Abnormal [facility] Procalcitonin (PCT) results measured serially can aid [...] on immunomodulatory medications has not been evaluated. [facility] RSV PCRon 10-11-2023 RSV RNA ALICE+probe Ql (Resp) Not detected Not Detected [facility] RSV RNA ALICE+probe Ql (Resp)o n 10-11-2023 This assay is an FDA-cleared, in vitro diagnostic nucleic acid amplification test for the detection of RSV from nasopharyngeal specimens, and has been validated for use at [facility]. Negative results do not preclude RSV infections, and should not be used as the sole basis for diagnosis, treatment, or other management decisions. If Influenza A/B and RSV PCR results are negative, testing for Parainfluenza virus, Adenovirus and Metapneumovirus is routinely performed for pediatric oncology and intensive care inpatients at [facility], and is available on other patients by placing an add-on request. [facility] SARS-CoV-2 (COVID-19) RNA NA A+probe Ql (Resp)Ordered By: Rae Marcelino on 10-11-2023 Interpretation and review of laboratory results Abnormal [facility] This assay has received FDA Emergency Use [...] and has been validated for use at [facility]. Negative results do not preclude COVID-19 infections and should not be used as the sole basis for diagnosis, treatment, or other management decisions. [facility] SST TOPon 10-11-2023 Extra Tube Hold for add-ons. [facility] Comment on above: Auto resulted. [facility] Sars-CoV-2 PCR, SymptomaticO rdered By: Rae Marcelino on 10-11-2023 SARS-CoV-2 (COVID-19) RNA ALICE+probe Ql (Resp) Detected Abnormal Not Detected [facility] Tropinin I.cardiac panel Hig h sensitivity methodon 10-11-2023 Interpretation and review of laboratory results Abnormal [facility] Less than 99th percentile of normal range [...] performed using a different testing methodology at [facility] than at other [facility]. Direct result comparisons should only be made within the same method. [facility] Interpretation and review of laboratory results Abnormal [facility] Less than 99th percentile of normal range [...] performed using a different testing methodology at [facility] than at other [facility]. Direct result comparisons should only be made within the same method. [facility] Troponin I, High Sensitivity , Initialon 10-11-2023 Tropinin I.cardiac panel High sensitivity method 102 ng/L Critically high 0 - 20 ng/L [facility] Troponin, High Sensitivity, 1 Houron 10-11-2023 Tropinin I.cardiac panel High sensitivity method 354 ng/L Critically high 0 - 20 ng/L [facility] Comment on above: Previous result veri gera on 10/11/2023 0209 on specimen/case [id number] called with component [facility] for procedure Troponin I, High Sensitivity, Initial with value 102 ng/L. US Heart TransthoracicOrdere d By: Jose Enrique Molina on 10-11-2023 LA vol index A/L 25.1 [facility] Work Phone: LV A4C EF 45.6 [facility] Work Phone: LV biplane EF 44 [facility] Work Phone: LVIDd 3.70 [facility] Work Phone: LVOT diam 1.80 [facility] Work Phone: [facility] Work Phone: [place] [address] [phone], TRANSTHORACIC ECHOCARDIOGRAM REPORT Patient Name: ENOC FERNANDES Reading Physician: [id number] Jose Enrique Molina MD Study Date: 10/11/2023 Ordering Provider: [id number] VERA RIVERA MRN/PID: [id number] Fellow: Nurse: Jana See RN Date of /Age: 2 1945 / 77 years Cash Management Associate: Cecilio Gabriel RDCS Gender: M Additional Staff: Height: 170.18 cm Admit Date: Weight: 71.67 kg Admission Status: Inpatient - Routine BSA: 1.83 m2 Department Location: [address]-ICU Blood Pressure: 141 /71 mmHg Study Type: TRANSTHORACIC ECHO (TTE) COMPLETE Diagnosis/ICD: Acute on chronic systolic (congestive) heart failure (CHF)-I50.23 CPT Codes: Echo Complete w Full Doppler-03021 Study Detail: The following Echo studies were [...] LA Area A2C: 16.2 cm2 LA Major Malcolm A4C: 5.3 cm LA Major Malcolm A2C: 5.0 cm LA Volume Index: 23.9 ml/m2 LA Vol A4C: 43.7 ml LA Vol A2C: 43.3 ml LV SYSTOLIC FUNCTION BY 2D PLANIMETRY (MOD): Normal Ranges: EF-A4C View: 45.6 % (>=55%) EF-A2C View: 40.9 % EF-Biplane: 44.2 % AORTIC VALVE: Normal Ranges: LVOT Diameter: 1.80 cm (1.8-2.4cm) RIGHT VENTRICLE: RV Basal 3.49 cm RV Mid 2.45 cm RV Major 7.8 cm [id number] Jose Enrique Molina MD Electronically signed on 10/11/2023 at 9:43:19 AM Final Jose Enrique Gardiner MD - 10/11/2023 [place] [address] [phone], TRANSTHORACIC ECHOCARDIOGRAM REPORT Patient Name: ENOC FERNANDES Reading Physician: [id number] Molina MD Study Date: 10/11/2023 Ordering Provider: [id number] VERA RIVERA MRN/PID: [id number] Fellow: Nurse: Jana See RN Date of /Age: 2 1945 / 77 years Cash Management Associate: Cecilio Gabriel RDCS Gender: M Additional Staff: Height: 170.18 cm Admit Date: Weight: 71.67 kg Admission Status: Inpatient - Routine BSA: 1.83 m2 Department Location: [address]-ICU Blood Pressure: 141 /71 mmHg Study Type: TRANSTHORACIC ECHO (TTE) COMPLETE Diagnosis/ICD: Acute on chronic systolic (congestive) heart failure (CHF)-I50.23 CPT Codes: Echo Complete w Full Doppler-23454 Study Detail: The following Echo studies were [...] LA Area A2C: 16.2 cm2 LA Major Malcolm A4C: 5.3 cm LA Major Malcolm A2C: 5.0 cm LA Volume Index: 23.9 ml/m2 LA Vol A4C: 43.7 ml LA Vol A2C: 43.3 ml LV SYSTOLIC FUNCTION BY 2D PLANIMETRY (MOD): Normal Ranges: EF-A4C View: 45.6 % (>=55%) EF-A2C View: 40.9 % EF-Biplane: 44.2 % AORTIC VALVE: Normal Ranges: LVOT Diameter: 1.80 cm (1.8-2.4cm) RIGHT VENTRICLE: RV Basal 3.49 cm RV Mid 2.45 cm RV Major 7.8 cm [id number] Jose Enrique Molina MD Electronically signed on 10/11/2023 at 9:43:19 AM Final [facility] Work Phone: Urinalysis complete W Reflex Culture panel (U)on 10-11-2023 Hyaline casts Auto (Urine sed) [#/Area] OCCASIONAL Abnormal NONE /LPF [facility] Interpretation and review of laboratory results Abnormal [facility] RBC Auto (Urine sed) [#/Area] NONE NONE, 1-2, 3-5 /HPF [facility] WBC Auto (Urine sed) [#/Area] NONE 1-5, NONE /HPF [facility] Appearance (U) Clear Clear [facility] Work Phone: Bilirubin (U) [Mass/Vol] Negative NEGATIVE [facility] Work Phone: [phone] Color (U) Yellow Straw, Yellow [facility] Work Phone: Glucose Auto test strip (U) [Mass/Vol] >=500 (3+) Abnormal NEGATIVE mg/dL [facility] Work Phone: Interpretation and review of laboratory results Abnormal [facility] Work Phone: Ketones (U) [Mass/Vol] 5 (TRACE) Abnormal NEGATIVE mg/d L [facility] Work Phone: Leukocyte esterase Auto test strip Ql (U) Negative NEGATIVE [facility] Work Phone: Nitrite Auto test strip Ql (U) Negative NEGATIVE [facility] Work Phone: pH (U) 5.0 [pH] 5.0, 5.5, 6.0, 6.5, 7.0, 7.5, 8.0 [facility] Work Phone: Protein (U) [Mass/Vol] 100 (2+) Abnormal NEGATIVE mg/d L [facility] Work Phone: RBC (U) [#/Vol] Negative NEGATIVE [facility] Work Phone: Specific gravity (U) [Rel density] 1.014 1.005 - 1.035 [facility] Work Phone: Urobilinogen (U) [Mass/Vol] mg/dL NINF - 2.0 mg/dL [facility] Work Phone: [facility] Work Phone: XR Chest Single viewon 10-11 1. Diffuse interstitial and scattered hazy opacities. These are nonspecific and may represent atypical infectious or inflammatory process or possibly edema in the appropriate clinical setting. Component may also be related to chronic parenchymal changes. Recommend follow-up to resolution. Signed by: Kahlil Faagn 10/11/2023 1:33 AM Dictation workstation: [id number] MMODAL Interpreted By: Kahlil Fagan, STUDY: XR CHEST 1 VIEW; 10/11/2023 1:30 am INDICATION: Signs/Symptoms:Cough. COMPARISON: Chest radiograph 11/04/2012 ACCESSION NUMBER(S): [id number] ORDERING CLINICIAN: AURY ROUSE FINDINGS: SUPPORT DEVICES: None. CARDIOMEDIASTINAL SILHOUETTE: Cardiomediastinal silhouette is normal in size and configuration. LUNGS: Diffuse interstitial prominence and scattered hazy opacities. No large pleural effusion or discernible pneumothorax. ABDOMEN: No remarkable upper abdominal findings. BONES: No acute osseous abnormality. MMODAL Kahlil Fagan MD - 10/11/2023 Interpreted By: Kahlil Fagan, STUDY: XR CHEST 1 VIEW; 10/11/2023 1:30 am INDICATION: Signs/Symptoms:Cough. COMPARISON: Chest radiograph 11/04/2012 ACCESSION NUMBER(S): [id number] ORDERING CLINICIAN: AURY ROUSE FINDINGS: SUPPORT DEVICES: None. CARDIOMEDIASTINAL SILHOUETTE: Cardiomediastinal silhouette is normal in size and configuration. LUNGS: Diffuse interstitial prominence and scattered hazy opacities. No large pleural effusion or discernible pneumothorax. ABDOMEN: No remarkable upper abdominal findings. BONES: No acute osseous abnormality. IMPRESSION: 1. Diffuse interstitial and scattered hazy opacities. These are nonspecific and may represent atypical infectious or inflammatory process or possibly edema in the appropriate clinical setting. Component may also be related to chronic parenchymal changes. Recommend follow-up to resolution. Signed by: Kahlil Fagan 10/11/2023 1:33 AM Dictation workstation: [id number] [facility] Work Phone: Radiology Study observation (narrative) [facility] Work Phone: XR Chest Single viewOrdered By: Kahlil Fagan on 10-11-2023 [facility] Work Phone: US RENAL BILATon 07-30-2023 US RENAL BILAT Patient Name: ENOC FERNANDES STUDY: US RENAL BILAT 07/30/2023 1:11 pm INDICATION: 77 y/o M with CKD N18.9: CKD (chronic kidney disease). COMPARISON: None. ACCESSION NUMBER(S): [id number] ORDERING CLINICIAN: AYANNA ALBERT TECHNIQUE: Grayscale imaging and color Doppler were utilized. FINDINGS: RIGHT KIDNEY: The right kidney measured 8.1 cm in length. The right kidney was small for size. There was diffuse cortical lobulation and thinning. Echogenicity was mildly diffusely increased. No shadowing stone, hydronephrosis, or perinephric edema. No gross right renal mass. LEFT KIDNEY: The left kidney measured 7.3 cm in length. The left kidney was small for size. There was mildly diffusely increased echogenicity. Mild cortical thinning and lobulation. No shadowing stone, hydronephrosis, or perinephric edema. No gross left renal mass. BLADDER: Prevoid bladder volume was 357 mL. No shadowing stone or mass in the urinary bladder. Bilateral ureteral jets were demonstrated. Mild prostate enlargement with the prostate measuring 50 x 45 x 44 mm. IMPRESSION: Nonspecific prostate enlargement. Chronic changes in both kidneys including small size, cortical scarring, and nonspecific increased echogenicity. No hydronephrosis. Electronically signed by: TENNILLE MAHARAJ MD [facility] Therapy Communicationon 07-03 Therapy Communication Message ENOC FERNANDES was (D/C)- last seen: 01/25/23. Pt self-discharged from skilled Physical Therapy at this time. Pt was not able to be fully re-assessed due to self-discharging and not attending final re-evaluation appointment. Refer back in future if necessary. Signatures Electronically signed by : Carlene Whitehead PT; Jul 29 2023 5:06PM EST (Author) Normal [facility] Initial Visit (Nephrology)on 07-27-2023 Initial Visit (Nephrology) Diagnoses/Problems Arthritis (716.90) (M19.90) CKD (chronic kidney disease) (585.9) (N18.9) Diabetic neuropathy (250.60,357.2) (E11.40) HTN (hypertension) (401.9) (I10) T1DM (type 1 diabetes mellitus) (250.01) (E10.9) Orders Albumin, Urine Spot; Status:Active; Requested for:[id number]; Basic Metabolic Panel; Status:Active; Requested for:[id number]; Magnesium, Serum; Status:Active; Requested for:[id number]; Parathormone Intact, Serum; Status:Active; Requested for:[id number]; Phosphorus, Serum; Status:Active; Requested for:[id number]; Ultrasound Kidney Bilateral; Status:Hold For - Scheduling; Requested for:[id number]; Radiologist to Determine Optimal Study : Y What are the patient's signs and symptoms? : CKD Uric Acid, Serum; Status:Active; Requested for:[id number]; Urinalysis; Status:Active; Requested for:[id number]; Vitamin D 25-Hydroxy; Status:Need Information - ABN Disposition; Requested for:[id number]; Patient Discussion/Summary Issues: 1. Chronic kidney disease likely secondary to diabetes and hypertension 2. Diabetes type 1 with good control and follows with endocrinology 3. Hypertension and I discussed with him that goal is 130/80 currently does not appear to be at goal He is resistant to checking his blood pressure at home as he states it makes him nervous he will follow-up with his primary care physician and see what his blood pressure is there we will also check again when it comes to our office We explained in detail renal function along with our goals He is not taking any nephrotoxins that I can tell He states he has used nicotine for decades and is not going to stop Encouraged good p.o. 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 BY GERMAIN ORTEGA FOR CKD History of Present IllnessHe is here for new patient visit He was referred here secondary to abnormal renal function My evaluation and plan is medicated back via the electronic medical record On June 11 blood work showed a sugar of 347 electrolytes look pretty normal BUN 31 with a creatinine of 1.85 with an estimated GFR of 36 Since October 2022 his creatinine has ranged from 1.5 up to 1.85 where it is presently In June 2022 and previous to that renal function ranged from about 1-1.3 Hemoglobin A1c is 7.8 Last hemoglobin is 12.6 In January urine albumin was 212 which is increased from June 2021 His medications are reviewed and they include amlodipine 10 mg daily Humalog quick acting insulin Lantus lisinopril with hydrochlorothiazide at 20/12.5 and Flomax He was sdiagnosed with DM at 53 years of age He was diagnosed with CIERA He controls sugars pretty well Misti flomax He does not measure BP at home He takes Tylenol for Headache and Pain Review of Systems Constitutional: no fever, no chills, no recent weight gain and no recent weight loss. Eyes: no blurred vision and no diplopia. ENT: no hearing loss, no earache, no sore throat, no swollen glands in the neck and no nasal discharge. Cardiovascular: no chest pain, no palpitations and no lower extremity edema. Respiratory: no shortness of breath, no chronic cough and no shortness of breath during exertion. Gastrointestinal: no abdominal pain, no constipation, no heartburn, no bloody stools, no change in bowel habits and no vomiting. Genitourinary: no dysuria and no hematuria. Musculoskeletal: no arthralgias and no myalgias. Skin: no rashes and no skin lesions. Neurological: no headaches and no dizziness. Psychiatric: no confusion, no depression and no anxiety. Endocrine: no cold intolerance, no heat intolerance, no thyroid disorder, no dry skin and no increased urinary frequency. Hematologic/Lymphatic : does not bleed easily and does not bruise easily. All other systems have been reviewed and are negative for complaint. Active Problems CKD (chronic kidney disease) (585.9) (N18.9) DDD (degenerative disc disease), lumbar (722.52) (M51.36) Diabetic neuropathy (250.60,357.2) (E11.40) HTN (hypertension) (401.9) (I10) T1DM (type 1 diabetes mellitus) (250.01) (E10.9) Allergies predniSONE TABS Hyperglycemia; Recorded By: Enedelia Bonds; 07/27/2023 2:48:19 PM Current Meds Medication NameInstruction Acetaminophen Extra Strength 500 MG CAPS amLODIPine Besylate 10 MG Oral TabletTake 1 tablet daily HumaLOG KwikPen 100 UNIT/ML Subcutaneous Solution Pen-injectorINJECT 35 UNIT Daily Lantus SoloStar 100 UNIT/ML Subcutaneous Solution Pen-injectorINJECT 18 UNIT Bedtime Lisinopril-hydroCHLOR Othiazide 20-12.5 MG Oral TabletTAKE 1 TABLET DAILY. Tamsulosin HCl - 0.4 MG Oral Capsule1 capsule daily Vitals Vital Signs Recorded: [id number] 02:48PMRecorded: [id number] 02:45PM Laiadnfe537, MCH026, LUE, Sitting Bkjuyebiz56 (more content not included)... Normal My Dentist Tobacco Screening.on 023 Fall risk assessment b) One or more fall s in the last year [facility] Work Phone: Tobacco use status [facility] a) Yes [facility] Work Phone: COMPREHENSIVE PANELon 2022 Albumin [Mass/Vol] 3.7 g/dL Normal 3.4 - 5.0 [facility] Comment on above: Performed By: #### C MP #### [address] [address] ALP [Catalytic activity/Vol] 80 U/L Normal 33 - 136 [facility] Comment on above: Performed By: #### C MP #### [address] [address] ALT [Catalytic activity/Vol] 12 U/L Normal 10 - 52 [facility] Comment on above: Result Comment: Bc ents treated with Sulfasalazine may generate falsely decreased results for ALT. Performed By: #### C MP #### [address] [address] Anion gap [Moles/Vol] 10 mmol/L Normal 10 - 20 [facility] Comment on above: Performed By: #### C MP #### [address] [address] AST [Catalytic activity/Vol] 16 U/L Normal 9 - 39 [facility] Comment on above: Performed By: #### C MP #### [address] [address] Bilirubin [Mass/Vol] 0.5 mg/dL Normal 0.0 - 1.2 [facility] Comment on above: Performed By: #### C MP #### [address] [address] Calcium [Mass/Vol] 8.9 mg/dL Normal 8.6 - 10.3 [facility] Comment on above: Performed By: #### C MP #### [address] [address] Chloride [Moles/Vol] 107 mmol/L Normal 98 - 107 [facility] Comment on above: Performed By: #### C MP #### [address] [address] Creatinine [Mass/Vol] 1.85 mg/dL High 0.50 - 1.30 [facility] Comment on above: Performed By: #### C MP #### [address] [address] GFR/1.73 sq M.predicted among non-blacks MDRD (S/P/Bld) [Vol rate/Area] 36 mL/min/{1.73_m2} Abnormal >90 [facility] Comment on above: Result Comment: CALC ULATIONS OF ESTIMATED GFR ARE PERFORMED USING THE 2020 CKD-EPI STUDY REFIT EQUATION WITHOUT THE RACE VARIABLE FOR THE IDMS-TRACEABLE CREATININE METHODS. https://jasn.asnjournals.org/content//ASN.82893 35521 Performed By: #### C MP #### [address] [address] Glucose [Mass/Vol] 347 mg/dL High 74 - 99 [facility] Comment on above: Performed By: #### C MP #### [address] [address] HCO3 (Bld) [Moles/Vol] 27 mmol/L Normal 21 - 32 [facility] Comment on above: Performed By: #### C MP #### [address] [address] Potassium [Moles/Vol] 4.4 mmol/L Normal 3.5 - 5.3 [facility] Comment on above: Performed By: #### C MP #### [address] [address] Protein [Mass/Vol] 6.0 g/dL Low 6.4 - 8.2 [facility] Comment on above: Performed By: #### C MP #### [address] [address] Sodium [Moles/Vol] 140 mmol/L Normal 136 - 145 [facility] Comment on above: Performed By: #### C MP #### [address] [address] Urea nitrogen [Mass/Vol] 31 mg/dL High 6 - 23 [facility] Comment on above: Performed By: #### C MP #### [address] [address] HEMOGLOBIN A1Con 06-11-2023 Glucose [Mass/Vol] 171 mg/dL Normal [facility] Comment on above: Performed By: #### H BA1E #### [address] [address] HbA1c (Bld) [Mass fraction] 7.6 % Abnormal [facility] Comment on above: Result Comment: Diag nosis of Diabetes-Adults Non-Diabetic: < or = 5.6% Increased risk for developing diabetes: 5.7-6.4% Diagnostic of diabetes: > or = 6.5% . Monitoring of Diabetes Age (y) Therapeutic Goal (%) Adults: >18 <7.0 Pediatrics: 13-18 <7.5 7-12 <8.0 0- 6 7.5-8.5 [employer]. Diabetes Care 33(S1), Nov 2009. Performed By: #### H BA1E #### [address] [address] ALBUMIN, URINE SPOTon 2022 ALBUMIN,URINE 195.3 mg/L Normal Not Established [facility] Comment on above: Performed By: #### A LBSP ####[id number] [place] [address] ALBUMIN/CREAT RATIO 212.5 ug/mg jowl trimmer High 0.0 - 30.0 [facility] Comment on above: Performed By: #### A LBSP ####[id number] [place] [address] CREATININE,URINE 91.9 mg/dL Normal 20.0 - 370.0 [facility] Comment on above: Performed By: #### A LBSP ####[id number] [place] [address] CBC AND DIFFERENTIALon 02-12 % AUTOMATED IMMATURE GRAN 0.3 % Normal 0.0 - 0.9 [facility] Comment on above: Result Comment: Arielle ture Granulocyte Count (IG) includes promyelocytes, myelocytes and metamyelocytes but does not include bands. Percent differential counts (%) should be interpreted in the context of the absolute cell counts (cells/L). Performed By: #### C BCDF #### [address] [address] Basophils (Bld) [#/Vol] 0.09 10*3/uL Normal 0.00 - 0.10 [facility] Comment on above: Performed By: #### C BCDF #### [address] [address] Basophils/100 WBC (Bld) 1.2 % Normal 0.0 - 2.0 [facility] Comment on above: Performed By: #### C BCDF #### [address] [address] Eosinophils (Bld) [#/Vol] 0.40 10*3/uL Normal 0.00 - 0.40 [facility] Comment on above: Performed By: #### C BCDF #### [address] [address] Eosinophils/100 WBC (Bld) 5.2 % Normal 0.0 - 6.0 [facility] Comment on above: Performed By: #### C BCDF #### [address] [address] Erythrocyte distribution width (RBC) [Ratio] 13.1 % Normal 11.5 - 14.5 [facility] Comment on above: Performed By: #### C BCDF #### [address] [address] Hematocrit (Bld) [Volume fraction] 39.5 % Low 41.0 - 52.0 [facility] Comment on above: Performed By: #### C BCDF #### [address] [address] Hemoglobin (Bld) [Mass/Vol] 12.6 g/dL Low 13.5 - 17.5 [facility] Comment on above: Performed By: #### C BCDF #### [address] [address] Lymphocytes (Bld) [#/Vol] 1.68 10*3/uL Normal 0.80 - 3.00 [facility] Comment on above: Performed By: #### C BCDF #### [address] [address] Lymphocytes/100 WBC (Bld) 21.9 % Normal 13.0 - 44.0 [facility] Comment on above: Performed By: #### C BCDF #### [address] [address] MCHC (RBC) [Mass/Vol] 31.9 g/dL Low 32.0 - 36.0 [facility] Comment on above: Performed By: #### C BCDF #### [address] [address] MCV (RBC) [Entitic vol] 95 fL Normal 80 - 100 [facility] Comment on above: Performed By: #### C BCDF #### [address] [address] Monocytes (Bld) [#/Vol] 0.57 10*3/uL Normal 0.05 - 0.80 [facility] Comment on above: Performed By: #### C BCDF #### [address] [address] Monocytes/100 WBC (Bld) 7.4 % Normal 2.0 - 10.0 [facility] Comment on above: Performed By: #### C BCDF #### [address] [address] Neutrophils (Bld) [#/Vol] 4.91 10*3/uL Normal 1.60 - 5.50 [facility] Comment on above: Result Comment: Perc ent differential counts (%) should be interpreted in the context of the absolute cell counts (cells/L). Performed By: #### C BCDF #### [address] [address] Neutrophils/100 WBC (Bld) 64.0 % Normal 40.0 - 80.0 [facility] Comment on above: Performed By: #### C BCDF #### [address] [address] Platelets (Bld) [#/Vol] 229 10*3/uL Normal 150 - 450 [facility] Comment on above: Performed By: #### C BCDF #### [address] [address] RBC 4.18 x10E12/L Low 4.50 - 5.90 [facility] Comment on above: Performed By: #### C BCDF #### [address] [address] WBC (Bld) [#/Vol] 7.7 10*3/uL Normal 4.4 - 11.3 [facility] Comment on above: Performed By: #### C BCDF #### [address] [address] COMPREHENSIVE PANELon 2022 Albumin [Mass/Vol] 4.0 g/dL Normal 3.4 - 5.0 [facility] Comment on above: Performed By: #### C MP #### [address] [address] ALP [Catalytic activity/Vol] 79 U/L Normal 33 - 136 [facility] Comment on above: Performed By: #### C MP #### [address] [address] ALT [Catalytic activity/Vol] 12 U/L Normal 10 - 52 [facility] Comment on above: Result Comment: Bc ents treated with Sulfasalazine may generate falsely decreased results for ALT. Performed By: #### C MP #### [address] [address] Anion gap [Moles/Vol] 10 mmol/L Normal 10 - 20 [facility] Comment on above: Performed By: #### C MP #### [address] [address] AST [Catalytic activity/Vol] 13 U/L Normal 9 - 39 [facility] Comment on above: Performed By: #### C MP #### [address] [address] Bilirubin [Mass/Vol] 0.6 mg/dL Normal 0.0 - 1.2 [facility] Comment on above: Performed By: #### C MP #### [address] [address] Calcium [Mass/Vol] 9.4 mg/dL Normal 8.6 - 10.3 [facility] Comment on above: Performed By: #### C MP #### [address] [address] Chloride [Moles/Vol] 105 mmol/L Normal 98 - 107 [facility] Comment on above: Performed By: #### C MP #### [address] [address] Creatinine [Mass/Vol] 1.69 mg/dL High 0.50 - 1.30 [facility] Comment on above: Performed By: #### C MP #### [address] [address] GFR/1.73 sq M.predicted among non-blacks MDRD (S/P/Bld) [Vol rate/Area] 41 mL/min/{1.73_m2} Abnormal >90 [facility] Comment on above: Result Comment: CALC ULATIONS OF ESTIMATED GFR ARE PERFORMED USING THE 2020 CKD-EPI STUDY REFIT EQUATION WITHOUT THE RACE VARIABLE FOR THE IDMS-TRACEABLE CREATININE METHODS. https://jasn.asnjournals.org/content//ASN.83115 [address] Performed By: #### C MP #### [address] [address] Glucose [Mass/Vol] 253 mg/dL High 74 - 99 [facility] Comment on above: Performed By: #### C MP #### [address] [address] HCO3 (Bld) [Moles/Vol] 28 mmol/L Normal 21 - 32 [facility] Comment on above: Performed By: #### C MP #### [address] [address] Potassium [Moles/Vol] 4.8 mmol/L Normal 3.5 - 5.3 [facility] Comment on above: Performed By: #### C MP #### [address] [address] Protein [Mass/Vol] 6.4 g/dL Normal 6.4 - 8.2 [facility] Comment on above: Performed By: #### C MP #### [address] [address] Sodium [Moles/Vol] 138 mmol/L Normal 136 - 145 [facility] Comment on above: Performed By: #### C MP #### [address] [address] Urea nitrogen [Mass/Vol] 25 mg/dL High 6 - 23 [facility] Comment on above: Performed By: #### C MP #### [address] [address] HEMOGLOBIN A1Con 02-12-2023 Glucose [Mass/Vol] 174 mg/dL Normal [facility] Comment on above: Performed By: #### H BA1E #### [address] [address] HbA1c (Bld) [Mass fraction] 7.7 % Abnormal [facility] Comment on above: Result Comment: Diag nosis of Diabetes-Adults Non-Diabetic: < or = 5.6% Increased risk for developing diabetes: 5.7-6.4% Diagnostic of diabetes: > or = 6.5% . Monitoring of Diabetes Age (y) Therapeutic Goal (%) Adults: >18 <7.0 Pediatrics: 13-18 <7.5 7-12 <8.0 0- 6 7.5-8.5 [employer]. Diabetes Care 33(S1), Nov 2009. Performed By: #### H BA1E #### [address] [address] LIPID PANEL (CORONARY RISK 2 )on 02-12-2023 Cholesterol [Mass/Vol] 154 mg/dL Normal 0 - 199 [facility] Comment on above: Result Comment: . AGE DESIRABLE BORDERLINE HIGH HIGH 0-19 Y 0 - 169 170 - 199 >/= 200 20-24 Y 0 - 189 190 - 224 >/= 225 >24 Y 0 - 199 200 - 239 >/= 240 All ranges are based on fasting samples. Specific therapeutic targets will vary based on patient-specific cardiac risk. . Pediatric guidelines reference:Pediatrics 2011, 128(S5). Adult guidelines reference: NCEP ATPIII Guidelines, ANA LAURA 2001, 258:2486-97 . Venipuncture immediately after or during the administration of Metamizole may lead to falsely low results. Testing should be performed immediately prior to Metamizole dosing. Performed By: #### L IPID #### [address] [address] Cholesterol in HDL [Mass/Vol] 43.0 mg/dL Normal [facility] Comment on above: Result Comment: . AGE VERY LOW LOW NORMAL HIGH 0-19 Y < 35 < 40 40-45 ---- 20-24 Y ---- < 40 >45 ---- >24 Y ---- < 40 40-60 >60 . Performed By: #### L IPID #### [address] [address] Cholesterol in LDL [Mass/Vol] 96 mg/dL Normal 0 - 99 [facility] Comment on above: Result Comment: . NEAR BORD AGE DESIRABLE OPTIMAL HIGH HIGH VERY HIGH 0-19 Y 0 - 109 --- 110-129 >/= 130 ---- 20-24 Y 0 - 119 --- 120-159 >/= 160 ---- >24 Y 0 - 99 100-129 130-159 160-189 >/=190 . Performed By: #### L IPID #### [address] [address] Cholesterol in VLDL [Mass/Vol] 15 mg/dL Normal 0 - 40 [facility] Comment on above: Performed By: #### L IPID #### [address] [address] Cholesterol.total/Chol esterol in HDL [Mass ratio] 3.6 {ratio} Normal [facility] Comment on above: Result Comment: REF VALUES DESIRABLE < 3.4 HIGH RISK > 5.0 Performed By: #### L IPID #### [address] [address] Triglyceride [Mass/Vol] 77 mg/dL Normal 0 - 149 [facility] Comment on above: Result Comment: . AGE DESIRABLE BORDERLINE HIGH HIGH VERY HIGH 0 D-90 D 19 - 174 ---- ---- ---- 91 D- 9 Y 0 - 74 75 - 99 >/= 100 ---- 10-19 Y 0 - 89 90 - 129 >/= 130 ---- 20-24 Y 0 - 114 115 - 149 >/= 150 ---- >24 Y 0 - 149 150 - 199 200- 499 >/= 500 . Venipuncture immediately after or during the administration of Metamizole may lead to falsely low results. Testing should be performed immediately prior to Metamizole dosing. Performed By: #### L IPID #### [address] [address] PROSTATE SPEC.AG,SCREENon PROSTATE SPEC.AG,SCREEN 3.14 ng/mL Normal 0.00 - 4.00 [facility] Comment on above: Result Comment: The FDA requires that the method used for PSA assay be reported to the physician. Values obtained with different assay methods must not be used interchangeably. This test was performed at [facility] using the [employer]. [employer] PSA assay is a two-site immunoenzymatic sandwich assay. The assay is approved for measurement of prostate-specific antigen (PSA)in serum and may be used in conjunction with a digital rectal examination in men 50 years and older as an aid in detection of prostate cancer. 4-Zdsmx-ehowqmqaf inhibitors (e.g. Proscar, Finasteride, Avodart, Dutasteride and Alma Rosa) for the treatment of BPH have been shown to lower PSA levels by an average of 50% after 6 months of treatment. Performed By: #### P [facility] #### [address] [address] THYROXINE,FREEon 02-12-2023 THYROXINE,FREE 1.16 ng/dL High 0.61 - 1.12 [facility] Comment on above: Result Comment: Thyr oxine Free testing is performed using different testing methodology at [facility] than at other [facility]. Direct result comparisons should only be made within the same method. . Biotin can cause falsely elevated free T4 results. Patients taking a Biotin dose of up to 10 mg/day should refrain from taking Biotin for 24 hours before sample collection. Patient taking a Biotin dose of >10 mg/day should consult with their physician or the laboratory before the blood draw. Performed By: #### T 4FRE #### [address] [address] TSHon 02-12-2023 TSH Qn 0.73 m[IU]/L Normal 0.44 - 3.98 [facility] Comment on above: Result Comment: TSH testing is performed using different testing methodology at [facility] than at other [facility]. Direct result comparisons should only be made within the same method. Performed By: #### T SH2 #### [address] [address] PT Progress Noteon 3 PT Progress Note Therapy Diagnosis Assessed DDD (degenerative disc disease), lumbar (722.52) (M51.36) Plan Goals: Goals set and discussed today. 1. Independent HEP to allow for 50% reduction in max ADL C/C sx ( 5/10) 2-3wks 2. Survey score improvement from 24% to 15% (ABIDA) 3-4wks 3. Strength increase to allow for improved ADL stdg, carrying, walking (from gr4- to gr4+ abdominals) 3-4wks 4. ROM increase to allow for improved ADL dressing lowers (from 50% to 75% SSBs) 3-4wks Planned interventions include: aquatic therapy, cryotherapy, dry needling, education/instruction , gait training, home program, hot pack, kinesiotaping, manual therapy, self care/home management, therapeutic exercises and IASTM/cupping. Frequency and duration: 2 time(s) a week, for 4 weeks, for 8 visits . the patient will continue therapy at [facility]. Potential to achieve rehab goals is fair: chronic syndrome Progress with POC, as tolerated. Assessment STW to the QL, glutes, hip flexor and IT band performed for decreasing muscle tightness and decreasing pain. IFC to R Lumbar/Glute region x 15' in S/L w/ MHP performed all per patient request for pain reduction. Pt and PT discussed discontinuing therapeutic exercise and assigning a new HEP. Pt and PT also discussed insurance not covering a TENS unit for the patient. Adult Risk Screening There are no spiritual/cultural practices/values/need s that are important to know Initial Fall Risk Screening: ENOC has not fallen in the last 6 months. ENOC has a fear of falling. He does not need assistance with sitting, standing or walking. Does not need assistance walking in his home. He does not need assistance in an unfamiliar setting. The patient is not using an assistive device. Fall Risk Screening: Patient is identified as a fall risk. Care Plan: Low Risk: Environmental for all patients and low risk patients: Offer assistance as needed or requested, keep environment free of obstacles, keep floor clean and dry, keep room lighting, wheelchair brakes on, bed/ stretcher locked and in low position if applicable, non-slip footwear if applicable, walker/cane available if needed, side rails up if applicable and pre-emptive toileting. Please identify location of pain: R Hip iliac crest. Pain Quality: tightness and . Living Will. Living Will: Living will on file. Patient Declined. Healthcare POA: No healthcare proxy on file. Patient Declined. Declaration of Mental Health Treatment: No mental health treatment on file. Patient Declined. Insurance Insurance reviewed Visit number: 10 [facility] Evaluating therapist Shoiab Bhandari PT. The physical therapist of record is the therapist who assumes primary responsibility for patient management and as such is held accountable for the coordination, continuation and progression of the POC. This patient?s care and PT of record will be transferred from Shoaib Bhandari PT to Carlene Stacy DPT effective as of 12/21/22 M51.36; low fall risk Subjective Patient reports:. Pt states his pain is a 1-2/10 this visit and did not increase with STW and TENS this visit. Pt requested no exercises this visit and discussed with the PT the unlikeliness of insurance covering a TENS unit but being able to issue a HEP for the pt to do at home so he doesn't have to come in to do them. Patient identified by name and date of . Precautions: Fall Risk: low Pertinent medical HX includes: Db; OA; carotid atherosclerosis low fall risk. Treatment Time in clinic started at 2:45 pm Time in clinic ended at 3:20 pm Total time in clinic is 35 minutes. Total timed code time is 30 minutes. Therapeutic exercise (01736):. Not Today 01/25/23 NuStep 5? Slant board 1' x 2 Standing hip ABD 2 x 10 wall lean n mini squat 2 x 10 TrA x 10 5? hold with exercises Seated on Teri disc TrA/hip add ball 2 x 10 3? hold Seated on Teri disc TrA/hip abd 2 x 10 Green band Seated on Teri disc TrA/marches 2 x 10 Green band Seated on Teri disc TrA/LAQ alt 2 x10 Seated on Teri disc OH lifts with play ball 2 x 10 Seated on Teri disc chops with play ball x10 ea side Seated on Teri disc with TrA Rows 2 x 10 green band Seated on Teri disc With TrA ext 2 x 10 green band Bridge 2 x 10 3? hold (N) IT band stretch supine with strap 10 x 10? hold (N). Manual Therapy ([id number]): timed minutes 15, units 1 . STW to glutes and QL and IT band, hip flexor. Modalities: untimed minutes 15, units 1 . IFC to R Lumbar/Glute region x 10' in S/L w/ MHP. 'Scores and Scales' Signatures Electronically signed by : Zoila Lopez, [employer]AK[employer]; Jan 25 2023 5:14PM EST (Author) Electronically signed by : Carlene Whitehead, PT; Feb 23 2023 10:49PM EST Normal [facility] PT Progress Noteon 3 PT Progress Note Therapy Diagnosis Assessed DDD (degenerative disc disease), lumbar (722.52) (M51.36) Plan Goals: Goals set and discussed today. 1. Independent HEP to allow for 50% reduction in max ADL C/C sx ( 5/10) 2-3wks 2. Survey score improvement from 24% to 15% (ABIDA) 3-4wks 3. Strength increase to allow for improved ADL stdg, carrying, walking (from gr4- to gr4+ abdominals) 3-4wks 4. ROM increase to allow for improved ADL dressing lowers (from 50% to 75% SSBs) 3-4wks Planned interventions include: aquatic therapy, cryotherapy, dry needling, education/instruction , gait training, home program, hot pack, kinesiotaping, manual therapy, self care/home management, therapeutic exercises and IASTM/cupping. Frequency and duration: 2 time(s) a week, for 4 weeks, for 8 visits . the patient will continue therapy at [facility]. Potential to achieve rehab goals is fair: chronic syndrome Will check with insurance on possible home TENS unit; POssible trigger point dry needling next session if warranted/pt elects. Progress with core stabilization/glute retraining. Progress with POC, as tolerated. Assessment Patient identified by name and date of . Pt reassessed this date by supervising PT with improvements noted in MMT of RLE compared to eval, however, pt does still have functional restriction and lingering pain. Pt presents with apparent rotation of Right pelvis forward and obvious muscle tension throughout RIght lumbar/pelvis musculature. Pt responded well to gentle STM performed this date as well as addition of EStim to Right lumbar/hip region. Pt demonstrated improved mobility and reported decreased pain after session. SPent much time edu pt on possible options with skilled PT and prognosis moving forward with pt being a good candidate for continued skilled PT and possible inclusion of trigger point dry needling. Adult Risk Screening There are no spiritual/cultural practices/values/need s that are important to know Initial Fall Risk Screening: ENOC has not fallen in the last 6 months. ENOC has a fear of falling. He does not need assistance with sitting, standing or walking. Does not need assistance walking in his home. He does not need assistance in an unfamiliar setting. The patient is not using an assistive device. Fall Risk Screening: Patient is identified as a fall risk. Care Plan: Low Risk: Environmental for all patients and low risk patients: Offer assistance as needed or requested, keep environment free of obstacles, keep floor clean and dry, keep room lighting, wheelchair brakes on, bed/ stretcher locked and in low position if applicable, non-slip footwear if applicable, walker/cane available if needed, side rails up if applicable and pre-emptive toileting. Pain Scale: On a scale of 0 to 10, the patient rates the pain at 5. Please identify location of pain: R Hip iliac crest. Pain Quality: tightness and . Living Will. Living Will: Living will on file. Patient Declined. Healthcare POA: No healthcare proxy on file. Patient Declined. Declaration of Mental Health Treatment: No mental health treatment on file. Patient Declined. Insurance Insurance reviewed Visit number: 9 MCR Evaluating therapist Shoaib Bhandari PT. The physical therapist of record is the therapist who assumes primary responsibility for patient management and as such is held accountable for the coordination, continuation and progression of the POC. This patient?s care and PT of record will be transferred from Shoaib Bhandari PT to Carlene Stacy DPT effective as of 12/21/22 M51.36; low fall risk Subjective Patient reports:. Pt notes the first few sessions really helped but the last few sessions have been more sore and intense and have beat me up some. Home program performing as directed: Partially. Precautions: Fall Risk: low Pertinent medical HX includes: Db; OA; carotid atherosclerosis low fall risk. Objective Ortho ROM / Joint Mobility (Range of Motion in degrees) Lumbar: (Moser = P! Denotes Pain with Movement) Extension: Active 50%. Flexion: Active 75%. Side Bend: R Active 30AND=%, L Active 50%. SSBs were particularly irritating to the LB area. Outcome Measures Modified Oswestry Low Back Pain Disability Index score: 24% Treatment Time in clinic started at 0200 Time in clinic ended at 0250 Total time in clinic is 50 minutes. Total timed code time is 35 minutes. Therapeutic exercise (28637): timed minutes 20, units 1 . Pt re-assessed for updated POC, updated/reviewed HEP, and discussed continued symptom management x 20 Not 01/18/23 NuStep 5? (X) Slant board 1' x 2 Standing hip ABD 2 x 10 wall lean n mini squat 2 x 10 TrA x 10 5? hold with exercises Seated on Teri disc TrA/hip add ball 2 x 10 3? hold Seated on Teri disc TrA/hip abd 2 x 10 Green band Seated on Teri disc TrA/marches 2 x 10 Green band Seated on Teri disc TrA/LAQ alt 2 x10 Seated on Teri disc OH lifts with play ball 2 x 10 Seated on Teri disc chops wit (more content not included)... Normal [facility] Therapy Re-eval Noteon 01-18 Therapy Re-eval Note Therapy Diagnosis Assessed 1. DDD (degenerative disc disease), lumbar (722.52) (M51.36) Plan Goals: Goals set and discussed today. 1. Independent HEP to allow for 50% reduction in max ADL C/C sx ( 5/10) 2-3wks 2. Survey score improvement from 24% to 15% (ABIDA) 3-4wks 3. Strength increase to allow for improved ADL stdg, carrying, walking (from gr4- to gr4+ abdominals) 3-4wks 4. ROM increase to allow for improved ADL dressing lowers (from 50% to 75% SSBs) 3-4wks Planned interventions include: aquatic therapy, cryotherapy, dry needling, education/instruction , gait training, home program, hot pack, kinesiotaping, manual therapy, self care/home management, therapeutic exercises and IASTM/cupping. Frequency and duration: 2 time(s) a week, for 4 weeks, for 8 visits . the patient will continue therapy at [facility]. Potential to achieve rehab goals is fair: chronic syndrome Will check with insurance on possible home TENS unit; POssible trigger point dry needling next session if warranted/pt elects. Progress with core stabilization/glute retraining. Progress with POC, as tolerated. Assessment Patient identified by name and date of . Pt reassessed this date by supervising PT with improvements noted in MMT of RLE compared to eval, however, pt does still have functional restriction and lingering pain. Pt presents with apparent rotation of Right pelvis forward and obvious muscle tension throughout RIght lumbar/pelvis musculature. Pt responded well to gentle STM performed this date as well as addition of EStim to Right lumbar/hip region. Pt demonstrated improved mobility and reported decreased pain after session. SPent much time edu pt on possible options with skilled PT and prognosis moving forward with pt being a good candidate for continued skilled PT and possible inclusion of trigger point dry needling. Adult Risk Screening There are no spiritual/cultural practices/values/need s that are important to know Initial Fall Risk Screening: ENOC has not fallen in the last 6 months. ENOC has a fear of falling. He does not need assistance with sitting, standing or walking. Does not need assistance walking in his home. He does not need assistance in an unfamiliar setting. The patient is not using an assistive device. Fall Risk Screening: Patient is identified as a fall risk. Care Plan: Low Risk: Environmental for all patients and low risk patients: Offer assistance as needed or requested, keep environment free of obstacles, keep floor clean and dry, keep room lighting, wheelchair brakes on, bed/ stretcher locked and in low position if applicable, non-slip footwear if applicable, walker/cane available if needed, side rails up if applicable and pre-emptive toileting. Pain Scale: On a scale of 0 to 10, the patient rates the pain at 5. Please identify location of pain: R Hip iliac crest. Pain Quality: tightness and . Living Will. Living Will: Living will on file. Patient Declined. Healthcare POA: No healthcare proxy on file. Patient Declined. Declaration of Mental Health Treatment: No mental health treatment on file. Patient Declined. Insurance Insurance reviewed Visit number: 9 [facility] Evaluating therapist Shoaib Bhandari PT. The physical therapist of record is the therapist who assumes primary responsibility for patient management and as such is held accountable for the coordination, continuation and progression of the POC. This patient?s care and PT of record will be transferred from Shoaib Bhandari PT to Carlene Stacy DPT effective as of 12/21/22 M51.36; low fall risk Subjective Patient reports:. Pt notes the first few sessions really helped but the last few sessions have been more sore and intense and have beat me up some. Home program performing as directed: Partially. Precautions: Fall Risk: low Pertinent medical HX includes: Db; OA; carotid atherosclerosis low fall risk. Objective Ortho ROM / Joint Mobility (Range of Motion in degrees) Lumbar: (Moser = P! Denotes Pain with Movement) Extension: Active 50%. Flexion: Active 75%. Side Bend: R Active 30AND=%, L Active 50%. SSBs were particularly irritating to the LB area. Outcome Measures Modified Oswestry Low Back Pain Disability Index score: 24% Treatment Time in clinic started at 0200 Time in clinic ended at 0250 Total time in clinic is 50 minutes. Total timed code time is 35 minutes. Therapeutic exercise (66767): timed minutes 20, units 1 . Pt re-assessed for updated POC, updated/reviewed HEP, and discussed continued symptom management x 20 Not 01/18/23 NuStep 5? (X) Slant board 1' x 2 Standing hip ABD 2 x 10 wall lean n mini squat 2 x 10 TrA x 10 5? hold with exercises Seated on Teri disc TrA/hip add ball 2 x 10 3? hold Seated on Teri disc TrA/hip abd 2 x 10 Green band Seated on Teri disc TrA/marches 2 x 10 Green band Seated on Teri disc TrA/LAQ alt 2 x10 Seated on Teri disc OH lifts with play ball 2 x 10 Seated on Teri disc chops (more content not included)... Normal [facility] PT Progress Noteon 3 PT Progress Note Therapy Diagnosis Assessed DDD (degenerative disc disease), lumbar (722.52) (M51.36) Plan Goals: Goals set and discussed today. 1. Independent HEP to allow for 50% reduction in max ADL C/C sx ( 10) 2-3wks 2. Survey score improvement from 24% to 15% (ABIDA) 3-4wks 3. Strength increase to allow for improved ADL stdg, carrying, walking (from gr4- to gr4+ abdominals) 3-4wks 4. ROM increase to allow for improved ADL dressing lowers (from 50% to 75% SSBs) 3-4wks Planned interventions include: aquatic therapy, cryotherapy, dry needling, education/instruction , gait training, home program, hot pack, kinesiotaping, manual therapy, self care/home management, therapeutic exercises and IASTM/cupping. Frequency and duration: 2 time(s) a week, for 4 weeks, for 8 visits . the patient will continue therapy at [facility]. Potential to achieve rehab goals is fair: chronic syndrome Continue with progression of core strengthening and STW as needed for reduction of Sx and increased ease with ADL's. Patient has re-check with PT next session. Progress with POC, as tolerated. Assessment Patient identified by name and date of . Added IT band stretch this date and instructed for HEP due to palpable tension. Reviewed importance of HEP even if he feels sore to increased with ROM and decrease with muscle tension, he verbalized good understanding. Patient continues to present with palpable muscle tension/restrictions in his piriforms. Adult Risk Screening There are no spiritual/cultural practices/values/need s that are important to know Initial Fall Risk Screening: ENOC has not fallen in the last 6 months. ENOC has a fear of falling. He does not need assistance with sitting, standing or walking. Does not need assistance walking in his home. He does not need assistance in an unfamiliar setting. The patient is not using an assistive device. Fall Risk Screening: Patient is identified as a fall risk. Care Plan: Low Risk: Environmental for all patients and low risk patients: Offer assistance as needed or requested, keep environment free of obstacles, keep floor clean and dry, keep room lighting, wheelchair brakes on, bed/ stretcher locked and in low position if applicable, non-slip footwear if applicable, walker/cane available if needed, side rails up if applicable and pre-emptive toileting. Pain Scale: On a scale of 0 to 10, the patient rates the pain at 5. Please identify location of pain: R hip. Pain Quality: tightness and . Living Will. Living Will: Living will on file. Patient Declined. Healthcare POA: No healthcare proxy on file. Patient Declined. Declaration of Mental Health Treatment: No mental health treatment on file. Patient Declined. Insurance Insurance reviewed Visit number: 8 MCR Evaluating therapist Shoaib Bhandari PT. The physical therapist of record is the therapist who assumes primary responsibility for patient management and as such is held accountable for the coordination, continuation and progression of the POC. This patient?s care and PT of record will be transferred from Shoaib Bhandari PT to Carlene Stacy DPT effective as of 12/21/22 M51.36; low fall risk Subjective Patient reports:. Patient reported he has experienced increased muscle soreness the past two days. Patient reported 3/10 pain/soreness after treatment. Patient reported at end of session that he felt the stim has helped him in the past. Home program performing as directed: Partially . He stated i did not feel like doing a lot yesterday. Precautions: Fall Risk: low Pertinent medical HX includes: Db; OA; carotid atherosclerosis low fall risk. Treatment Time in clinic started at 09:55 Time in clinic ended at 10:40 Total time in clinic is 45 minutes. Total timed code time is 38 minutes. Therapeutic exercise ([id number]): timed minutes 26, units 2 . NuStep 5? start Slant board 1' x 2 Standing hip ABD 2 x 10 wall lean n mini squat 2 x 10 TrA x 10 5? hold with exercises Seated on Teri disc TrA/hip add ball 2 x 10 3? hold Seated on Teri disc TrA/hip abd 2 x 10 Green band Seated on Teri disc TrA/marches 2 x 10 Green band Seated on Teri disc TrA/LAQ alt 2 x10 Seated on Teri disc OH lifts with play ball 2 x 10 Seated on Teri disc chops with play ball x10 ea side Seated on Teri disc with TrA Rows 2 x 10 green band Seated on Teri disc With TrA ext 2 x 10 green band Bridge 2 x 10 3? hold (N) IT band stretch supine with strap 10 x 10? hold (N) Not this date; Seated HS stretch 3 x 20? hold D/C to HEP LTR 2 x 10 5? hold D/C to HEP SKTC 10 x 10 B D/C to HEP Hip flex stretch EOB D/C to HEP Piriformis stretch 3 x 30? D/C to HEP Supine QL stretch 3 x 30? D/C to HEP . Manual Therapy ([id number]): timed minutes 12, units 1 . STW to glutes and QL and IT band. Provided today:. 12/25/22 [id number] Provided and reviewed HEP, patient demosntrated good understanding. 'Scores and Scales' Signatures Electronically signed by : Chaya Morrow (more content not included)... Normal [facility] PT Progress Noteon 3 PT Progress Note Therapy Diagnosis Assessed DDD (degenerative disc disease), lumbar (722.52) (M51.36) Plan Goals: Goals set and discussed today. 1. Independent HEP to allow for 50% reduction in max ADL C/C sx ( 5/10) 2-3wks 2. Survey score improvement from 24% to 15% (ABIDA) 3-4wks 3. Strength increase to allow for improved ADL stdg, carrying, walking (from gr4- to gr4+ abdominals) 3-4wks 4. ROM increase to allow for improved ADL dressing lowers (from 50% to 75% SSBs) 3-4wks Planned interventions include: aquatic therapy, cryotherapy, dry needling, education/instruction , gait training, home program, hot pack, kinesiotaping, manual therapy, self care/home management, therapeutic exercises and IASTM/cupping. Frequency and duration: 2 time(s) a week, for 4 weeks, for 8 visits . the patient will continue therapy at [facility]. Potential to achieve rehab goals is fair: chronic syndrome Continue with progression of core strengthening and STW as needed for reduction of Sx and increased ease with ADL's. Add to HEP next session. Progress with POC, as tolerated. Assessment Patient identified by name and date of . Patient was able to progress with several exercises this date with addition of teri disc and focus on maintain upright posture. He presented with increased muscle tension in IT band and QL this date. Adult Risk Screening There are no spiritual/cultural practices/values/need s that are important to know Initial Fall Risk Screening: ENOC has not fallen in the last 6 months. ENOC has a fear of falling. He does not need assistance with sitting, standing or walking. Does not need assistance walking in his home. He does not need assistance in an unfamiliar setting. The patient is not using an assistive device. Fall Risk Screening: Patient is identified as a fall risk. Care Plan: Low Risk: Environmental for all patients and low risk patients: Offer assistance as needed or requested, keep environment free of obstacles, keep floor clean and dry, keep room lighting, wheelchair brakes on, bed/ stretcher locked and in low position if applicable, non-slip footwear if applicable, walker/cane available if needed, side rails up if applicable and pre-emptive toileting. Pain Scale: On a scale of 0 to 10, the patient rates the pain at 3. Please identify location of pain: R hip. Pain Quality: tightness and . Living Will. Living Will: Living will on file. Patient Declined. Healthcare POA: No healthcare proxy on file. Patient Declined. Declaration of Mental Health Treatment: No mental health treatment on file. Patient Declined. Insurance Insurance reviewed Visit number: 7 MCR Evaluating therapist Shoaib Bhandari PT. The physical therapist of record is the therapist who assumes primary responsibility for patient management and as such is held accountable for the coordination, continuation and progression of the POC. This patient?s care and PT of record will be transferred from Shoaib Bhandari PT to Carlene Stacy DPT effective as of 12/21/22 M51.36; low fall risk Subjective Patient reports:. Patient reported 0/10 pain after treatment. Home program performing as directed: Partially . He stated I have been doing the stretching. Precautions: Fall Risk: low Pertinent medical HX includes: Db; OA; carotid atherosclerosis low fall risk. Treatment Time in clinic started at 10:03 Time in clinic ended at 10:43 Total time in clinic is 40 minutes. Total timed code time is 38 minutes. Therapeutic exercise ([id number]): timed minutes 26, units 2 . NuStep 5? start Slant board 1' x 2 Standing hip ABD 2 x 10 wall lean n mini squat 2 x 10 TrA x 10 5? hold with exericses Seated on Teri disc TrA/hip add ball 2 x 10 3? hold (P) Seated on Teri disc TrA/hip abd 2 x 10 Green band (P) Seated on Teri disc TrA/marches 2 x 10 Green band (P) Seated on Teri disc TrA/LAQ alt 2 x10 (N) Seated on Teri disc OH lifts with play ball 2 x 10 (N) Seated on Teri disc chops with play ball x10 ea side (N) Seated on Teri disc with TrA Rows 2 x 10 green band Seated on Teri disc With TrA ext 2 x 10 green band Not this date; Seated HS stretch 3 x 20? hold D/C to HEP LTR 2 x 10 5? hold D/C to HEP SKTC 10 x 10 B D/C to HEP Hip flex stretch EOB D/C to HEP Piriformis stretch 3 x 30? D/C to HEP Supine QL stretch 3 x 30? D/C to HEP . Manual Therapy (62091): timed minutes 12, units 1 . STW to glutes and QL and IT band. Provided today:. 12/25/22 [id number] Provided and reviewed HEP, patient demosntrated good understanding. 'Scores and Scales' Signatures Electronically signed by : Chaya Chan, [employer]AK[employer]; Jan 13 2023 11:01AM EST (Author) Electronically signed by : Carlene Whitehead, PT; Jan 17 2023 3:07PM EST [facility] PT Progress Noteon PT Progress Note Therapy Diagnosis Assessed DDD (degenerative disc disease), lumbar (722.52) (M51.36) Plan Goals: Goals set and discussed today. 1. Independent HEP to allow for 50% reduction in max ADL C/C sx ( 03/10) 2-3wks 2. Survey score improvement from 24% to 15% (ABIDA) 3-4wks 3. Strength increase to allow for improved ADL stdg, carrying, walking (from gr4- to gr4+ abdominals) 3-4wks 4. ROM increase to allow for improved ADL dressing lowers (from 50% to 75% SSBs) 3-4wks Planned interventions include: aquatic therapy, cryotherapy, dry needling, education/instruction , gait training, home program, hot pack, kinesiotaping, manual therapy, self care/home management, therapeutic exercises and IASTM/cupping. Frequency and duration: 2 time(s) a week, for 4 weeks, for 8 visits . the patient will continue therapy at [facility]. Potential to achieve rehab goals is fair: chronic syndrome Continue with progression of core strengthening and STW as needed for reduction of Sx and increased ease with ADL's. Progress with POC, as tolerated. Assessment Patient identified by name and date of . Patient required cues throughout treatment to preform exercises with proper form and to maintain hold times. He presented with palpable tension in R QL and gluts that responded well to STW. Adult Risk Screening There are no spiritual/cultural practices/values/need s that are important to know Initial Fall Risk Screening: ENOC has not fallen in the last 6 months. ENOC has a fear of falling. He does not need assistance with sitting, standing or walking. Does not need assistance walking in his home. He does not need assistance in an unfamiliar setting. The patient is not using an assistive device. Fall Risk Screening: Patient is identified as a fall risk. Care Plan: Low Risk: Environmental for all patients and low risk patients: Offer assistance as needed or requested, keep environment free of obstacles, keep floor clean and dry, keep room lighting, wheelchair brakes on, bed/ stretcher locked and in low position if applicable, non-slip footwear if applicable, walker/cane available if needed, side rails up if applicable and pre-emptive toileting. Pain Scale: On a scale of 0 to 10, the patient rates the pain at 3. Please identify location of pain: R hip. Pain Quality: tightness and sore. Living Will. Living Will: Living will on file. Patient Declined. Healthcare POA: No healthcare proxy on file. Patient Declined. Declaration of Mental Health Treatment: No mental health treatment on file. Patient Declined. Insurance Insurance reviewed Visit number: 6 [facility] Evaluating therapist Shoaib Bhandari PT. The physical therapist of record is the therapist who assumes primary responsibility for patient management and as such is held accountable for the coordination, continuation and progression of the POC. This patient?s care and PT of record will be transferred from Shoaib Bhandari PT to Carlene DODDT effective as of 12/21/22 M51.36; low fall risk Subjective Patient reports:. Patient reported 0/10 pain after treatment. Home program performing as directed: Yes. Precautions: Fall Risk: low Pertinent medical HX includes: Db; OA; carotid atherosclerosis low fall risk. Treatment Time in clinic started at 10:00 Time in clinic ended at 10:45 Total time in clinic is 45 minutes. Total timed code time is 43 minutes. Therapeutic exercise (69626): timed minutes 32, units 2 . NuStep 5? start Slant board 1' x 2 Standing hip ABD 2 x 10 wall lean n mini squat 2 x 10 Seated HS stretch 3 x 20? hold (P) LTR 2 x 10 5? hold SKTC 10 x 10 B Hip flex stretch EOB Piriformis stretch 3 x 30? Supine QL stretch 3 x 30? TrA x 10 5? hold Hooklying TrA/hip add ball 2 x 10 3? hold Hooklying TrA/hip abd 2 x 10 Green band Hooklying TrA/marches 2 x 10 Green band . Manual Therapy (37124): timed minutes 11, units 1 . STW to glutes and QL 10'. Provided today:. 12/25/22 [id number] Provided and reviewed HEP, patient demosntrated good understanding. 'Scores and Scales' Signatures Electronically signed by : Chaya Chan, WASTE DISPOSAL LEAKAGE TESTER; Jan 08 2023 10:51AM EST (Author) Electronically signed by : Carlene Whitehead, PT; Jan 17 2023 3:06PM EST [facility] PT Progress Noteon 3 PT Progress Note Therapy Diagnosis Assessed DDD (degenerative disc disease), lumbar (722.52) (M51.36) Plan Goals: Goals set and discussed today. 1. Independent HEP to allow for 50% reduction in max ADL C/C sx ( 03/10) 2-3wks 2. Survey score improvement from 24% to 15% (ABIDA) 3-4wks 3. Strength increase to allow for improved ADL stdg, carrying, walking (from gr4- to gr4+ abdominals) 3-4wks 4. ROM increase to allow for improved ADL dressing lowers (from 50% to 75% SSBs) 3-4wks Planned interventions include: aquatic therapy, cryotherapy, dry needling, education/instruction , gait training, home program, hot pack, kinesiotaping, manual therapy, self care/home management, therapeutic exercises and IASTM/cupping. Frequency and duration: 2 time(s) a week, for 4 weeks, for 8 visits . the patient will continue therapy at [facility]. 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 Progress with POC, as tolerated. Assessment Tightness along the ITB and QL continues. Palpable spams in both regions with with STW. Fair trunk flexibility with SKTC. Adult Risk Screening There are no spiritual/cultural practices/values/need s that are important to know Initial Fall Risk Screening: ENOC has not fallen in the last 6 months. ENOC has a fear of falling. He does not need assistance with sitting, standing or walking. Does not need assistance walking in his home. He does not need assistance in an unfamiliar setting. The patient is not using an assistive device. Fall Risk Screening: Patient is identified as a fall risk. Care Plan: Low Risk: Environmental for all patients and low risk patients: Offer assistance as needed or requested, keep environment free of obstacles, keep floor clean and dry, keep room lighting, wheelchair brakes on, bed/ stretcher locked and in low position if applicable, non-slip footwear if applicable, walker/cane available if needed, side rails up if applicable and pre-emptive toileting. Please identify location of pain: R hip. Pain Quality: tightness and sore. Living Will. Living Will: Living will on file. Patient Declined. Healthcare POA: No healthcare proxy on file. Patient Declined. Declaration of Mental Health Treatment: No mental health treatment on file. Patient Declined. Insurance Insurance reviewed Visit number: 5 [facility] Evaluating therapist Shoaib Bhandari PT. The physical therapist of record is the therapist who assumes primary responsibility for patient management and as such is held accountable for the coordination, continuation and progression of the POC. This patient?s care and PT of record will be transferred from Shoaib Bhandari PT to Carlene Stacy DPT effective as of 12/21/22 M51.36; low fall risk Subjective Patient reports:. Patient reports that back pain is has improved since last visit. States that the massage seems to be helping with decreased pain. Current pain is 2/10. Patient identified by name and date of . Home program performing as directed: Yes. Precautions: Fall Risk: low Pertinent medical HX includes: Db; OA; carotid atherosclerosis low fall risk. Treatment Time in clinic started at 10:45 Time in clinic ended at 11:30 Total time in clinic is 45 minutes. Total timed code time is 44 minutes. Therapeutic exercise (34812): timed minutes 34, units 2 . NuStep 5? start Slant board 1' x 2 Standing hip ABD 2 x 10 (N) wall lean n mini squat x 10 LTR 2 x 10 5? hold (P reps) SKTC 10 x 10 B Piriformis stretch 3 x 30? Supine QL stretch 3 x 30? Seated HS stretch (N) Hip flex stretch EOB TrA x 10 5? hold Hooklying TrA/hip add ball 2 x 10 3? hold Hooklying TrA/hip abd 2 x 10 Green band (P reistance) Hooklying TrA/marches 2 x 10 Green band (N) . Manual Therapy (19193): timed minutes 10, units 1 . STW to glutes and QL 10'. Provided today:. 12/25/22 [id number] Provided and reviewed HEP, patient demosntrated good understanding. 'Scores and Scales' Signatures Electronically signed by : Zoila Lopez, WASTE DISPOSAL LEAKAGE TESTER; Jan 06 2023 12:41PM EST (Author) Electronically signed by : Carlene Whitehead, PT; Jan 17 2023 3:06PM EST [facility] PT Progress Noteon 3 PT Progress Note Therapy Diagnosis Assessed DDD (degenerative disc disease), lumbar (722.52) (M51.36) Plan Goals: Goals set and discussed today. 1. Independent HEP to allow for 50% reduction in max ADL C/C sx ( 5/10) 2-3wks 2. Survey score improvement from 24% to 15% (ABIDA) 3-4wks 3. Strength increase to allow for improved ADL stdg, carrying, walking (from gr4- to gr4+ abdominals) 3-4wks 4. ROM increase to allow for improved ADL dressing lowers (from 50% to 75% SSBs) 3-4wks Planned interventions include: aquatic therapy, cryotherapy, dry needling, education/instruction , gait training, home program, hot pack, kinesiotaping, manual therapy, self care/home management, therapeutic exercises and IASTM/cupping. Frequency and duration: 2 time(s) a week, for 4 weeks, for 8 visits . the patient will continue therapy at [facility]. 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 Progress with POC, as tolerated. Assessment Decreased myofasical restriction with STW on the R QL region but was still very tender and did still have spasms. Continued use of palm of hand during STW for improved comfort. Spasm palpated along piriformis on the R as well that was very tender to palpation and STW. Added SKTC this date with relief noted d/t tightness in LB. Adult Risk Screening There are no spiritual/cultural practices/values/need s that are important to know Initial Fall Risk Screening: ENOC has not fallen in the last 6 months. ENOC has a fear of falling. He does not need assistance with sitting, standing or walking. Does not need assistance walking in his home. He does not need assistance in an unfamiliar setting. The patient is not using an assistive device. Fall Risk Screening: Patient is identified as a fall risk. Care Plan: Low Risk: Environmental for all patients and low risk patients: Offer assistance as needed or requested, keep environment free of obstacles, keep floor clean and dry, keep room lighting, wheelchair brakes on, bed/ stretcher locked and in low position if applicable, non-slip footwear if applicable, walker/cane available if needed, side rails up if applicable and pre-emptive toileting. Please identify location of pain: R hip. Pain Quality: tightness and sore. Living Will. Living Will: Living will on file. Patient Declined. Healthcare POA: No healthcare proxy on file. Patient Declined. Declaration of Mental Health Treatment: No mental health treatment on file. Patient Declined. Insurance Insurance reviewed Visit number: 4 [facility] Evaluating therapist Shoaib Bhandari PT. The physical therapist of record is the therapist who assumes primary responsibility for patient management and as such is held accountable for the coordination, continuation and progression of the POC. This patient?s care and PT of record will be transferred from Shoaib Bhandari PT to Carlene Stacy DPT effective as of 12/21/22 M51.36; low fall risk Subjective Patient reports:. Patient reports that back pain is still constant. Current pain is 3/10. Notes that he still get the weakness in thighs and knees. States that the massage last visit did seem to help. Patient identified by name and date of . Home program performing as directed: Yes. Precautions: Fall Risk: low Pertinent medical HX includes: Db; OA; carotid atherosclerosis low fall risk. Treatment Time in clinic started at 10:45 Time in clinic ended at 11:30 Total time in clinic is 45 minutes. Total timed code time is 44 minutes. Therapeutic exercise (86379): timed minutes 34, units 2 . NuStep 5? start Slant board 1' x 2 (N) wall lean n mini squat x 10 LTR x 10 5? hold SKTC 10 x 10 B (N) Piriformis stretch 3 x 30? Supine QL stretch 3 x 30? Seated HS stretch (N) Hip flex stretch EOB TrA x10 5? hold Hooklying TrA/hip add ball 2 x 10 3? hold Hooklying TrA/hip abd 2 x 10 orange band . Manual Therapy (00209): timed minutes 10, units 1 . STW to glutes and QL 10'. Provided today:. 12/25/22 [id number] Provided and reviewed HEP, patient demosntrated good understanding. 'Scores and Scales' Signatures Electronically signed by : Zoila Lopez, WASTE DISPOSAL LEAKAGE TESTER; Jan 01 2023 12:56PM EST (Author) Electronically signed by : Carlene Whitehead, PT; Jan 17 2023 3:06PM EST [facility] PT Progress Noteon 3 PT Progress Note Therapy Diagnosis Assessed DDD (degenerative disc disease), lumbar (722.52) (M51.36) Plan Goals: Goals set and discussed today. 1. Independent HEP to allow for 50% reduction in max ADL C/C sx ( 5/10) 2-3wks 2. Survey score improvement from 24% to 15% (ABIDA) 3-4wks 3. Strength increase to allow for improved ADL stdg, carrying, walking (from gr4- to gr4+ abdominals) 3-4wks 4. ROM increase to allow for improved ADL dressing lowers (from 50% to 75% SSBs) 3-4wks Planned interventions include: aquatic therapy, cryotherapy, dry needling, education/instruction , gait training, home program, hot pack, kinesiotaping, manual therapy, self care/home management, therapeutic exercises and IASTM/cupping. Frequency and duration: 2 time(s) a week, for 4 weeks, for 8 visits . the patient will continue therapy at [facility]. Potential to achieve rehab goals is fair: chronic syndrome Progress DLS for continued improved functional mobility and core strength as well as STW. Progress with POC, as tolerated. Assessment Tightness on the R > L with piriformis stretches. Guards with all transfers. Could not tolerate deep pressure in QL, so used palm of hand to apply more broad pressure with better tolerance. Added slant board stretch d/t tightness in gastroc and HS. Adult Risk Screening There are no spiritual/cultural practices/values/need s that are important to know Initial Fall Risk Screening: ENOC has not fallen in the last 6 months. ENOC has a fear of falling. He does not need assistance with sitting, standing or walking. Does not need assistance walking in his home. He does not need assistance in an unfamiliar setting. The patient is not using an assistive device. Fall Risk Screening: Patient is identified as a fall risk. Care Plan: Low Risk: Environmental for all patients and low risk patients: Offer assistance as needed or requested, keep environment free of obstacles, keep floor clean and dry, keep room lighting, wheelchair brakes on, bed/ stretcher locked and in low position if applicable, non-slip footwear if applicable, walker/cane available if needed, side rails up if applicable and pre-emptive toileting. Please identify location of pain: R hip. Pain Quality: tightness and sore. Living Will. Living Will: Living will on file. Patient Declined. Healthcare POA: No healthcare proxy on file. Patient Declined. Declaration of Mental Health Treatment: No mental health treatment on file. Patient Declined. Insurance Insurance reviewed Visit number: 2 [facility] Evaluating therapist Shoaib Bhandari PT. The physical therapist of record is the therapist who assumes primary responsibility for patient management and as such is held accountable for the coordination, continuation and progression of the POC. This patient?s care and PT of record will be transferred from Shoaib Bhandari PT to Carlene Stacy DPT effective as of 12/21/22 M51.36; low fall risk Subjective Patient reports:. Patient reports that back pain is constant. Current pain is 5/10 and constant. Notes that he is concerned that his thighs and knees get weak all of a sudden. Notes that he cannot walk any long distance without needed it sit down. States that he can sleep ok but when he stands(vertical) that is when the pain starts. Uses heat at home PRN. Patient identified by name and date of . Home program performing as directed: Yes. Precautions: Fall Risk: low Pertinent medical HX includes: Db; OA; carotid atherosclerosis low fall risk. Treatment Time in clinic started at 4:15 Time in clinic ended at 5:00 Total time in clinic is 45 minutes. Total timed code time is 44 minutes. Therapeutic exercise (32522): timed minutes 34, units 2 . NuStep 5? start Slant board 1' x 2 (N) wall lean n mini squat x 10 LTR x 10 5? hold Piriformis stretch 3 x 30? Supine QL stretch 3 x 30? Seated HS stretch (N) Hip flex stretch EOB TrA x10 5? hold Hooklying TrA/hip add ball 2 x 10 3? hold Hooklying TrA/hip abd 2 x 10 orange band . Manual Therapy (94337): timed minutes 10, units 1 . STW to glutes and QL 10'. Provided today:. 12/25/22 [id number] Provided and reviewed HEP, patient demosntrated good understanding. 'Scores and Scales' Signatures Electronically signed by : Zoila Lopez, WASTE DISPOSAL LEAKAGE TESTER; Dec 30 2022 5:01PM EST (Author) Electronically signed by : Carlene Whitehead, PT; Jan 17 2023 3:06PM EST [facility] PT Progress Noteon 3 PT Progress Note Therapy Diagnosis Assessed DDD (degenerative disc disease), lumbar (722.52) (M51.36) Plan Goals: Goals set and discussed today. 1. Independent HEP to allow for 50% reduction in max ADL C/C sx ( 03/10) 2-3wks 2. Survey score improvement from 24% to 15% (ABIDA) 3-4wks 3. Strength increase to allow for improved ADL stdg, carrying, walking (from gr4- to gr4+ abdominals) 3-4wks 4. ROM increase to allow for improved ADL dressing lowers (from 50% to 75% SSBs) 3-4wks Planned interventions include: aquatic therapy, cryotherapy, dry needling, education/instruction , gait training, home program, hot pack, kinesiotaping, manual therapy, self care/home management, therapeutic exercises and IASTM/cupping. Frequency and duration: 2 time(s) a week, for 4 weeks, for 8 visits . the patient will continue therapy at [facility]. 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 Progress with POC, as tolerated. Assessment Patient identified by name and date of . Patient demonstrated good understanding of exercises and stretching with cues to complete after instruction. He presented with palpable tension in gluts and QL and paraspinals that responded well to STW. Adult Risk Screening There are no spiritual/cultural practices/values/need s that are important to know Initial Fall Risk Screening: ENOC has not fallen in the last 6 months. ENOC has a fear of falling. He does not need assistance with sitting, standing or walking. Does not need assistance walking in his home. He does not need assistance in an unfamiliar setting. The patient is not using an assistive device. Fall Risk Screening: Patient is identified as a fall risk. Care Plan: Low Risk: Environmental for all patients and low risk patients: Offer assistance as needed or requested, keep environment free of obstacles, keep floor clean and dry, keep room lighting, wheelchair brakes on, bed/ stretcher locked and in low position if applicable, non-slip footwear if applicable, walker/cane available if needed, side rails up if applicable and pre-emptive toileting. Pain Scale: On a scale of 0 to 10, the patient rates the pain at 3. Please identify location of pain: R hip. Pain Quality: tightness and sore. Living Will. Living Will: Living will on file. Patient Declined. Healthcare POA: No healthcare proxy on file. Patient Declined. Declaration of Mental Health Treatment: No mental health treatment on file. Patient Declined. Insurance Insurance reviewed Visit number: 2 [facility] Evaluating therapist Shoaib Bhandari PT. The physical therapist of record is the therapist who assumes primary responsibility for patient management and as such is held accountable for the coordination, continuation and progression of the POC. This patient?s care and PT of record will be transferred from Shoaib Bhandari PT to Carlene DODDT effective as of 12/21/22 M51.36; low fall risk Subjective Patient reports:. He reported reduction of Sx after treatment. Home program performing as directed: Yes. Precautions: Fall Risk: low Pertinent medical HX includes: Db; OA; carotid atherosclerosis low fall risk. Treatment Time in clinic started at 07:45 Time in clinic ended at 08:28 Total time in clinic is 43 minutes. Total timed code time is 41 minutes. Therapeutic exercise (48916): timed minutes 31, units 2 . NuStep 5? start wall lean n mini squat x10 LTR x10 5? hold Piriformis stretch 3 x 30? Supine QL stretch 3 x 30? Hip flex stretch EOB TrA x10 5? hold Hooklying TrA/hip add ball 2 x 10 3? hold Hooklying TrA/hip abd 2 x 10 orange band . Manual Therapy (20843): timed minutes 10, units 1 . STW to gluts and QL. Provided today:. 12/25/22 [id number] Provided and reviewed HEP, patient demosntrated good understanding. 'Scores and Scales' Signatures Electronically signed by : Chaya Chan WASTE DISPOSAL LEAKAGE TESTER; Dec 25 2022 10:14AM EST (Author) Electronically signed by : Carlene Whitehead PT; Jan 17 2023 3:06PM EST [facility] Initial Evaluationon 12-03 PT Initial Evaluation Therapy Diagnosis Assessed DDD (degenerative disc disease), lumbar (722.52) (M51.36) Plan of Care Goals: Goals set and discussed today. 1. Independent HEP to allow for 50% reduction in max ADL C/C sx ( /10) 2-3wks 2. Survey score improvement from 24% to 15% (ABIDA) 3-4wks 3. Strength increase to allow for improved ADL stdg, carrying, walking (from gr4- to gr4+ abdominals) 3-4wks 4. ROM increase to allow for improved ADL dressing lowers (from 50% to 75% SSBs) 3-4wks Planned interventions include: aquatic therapy, cryotherapy, dry needling, education/instruction , gait training, home program, hot pack, kinesiotaping, manual therapy, self care/home management, therapeutic exercises and IASTM/cupping. Frequency and duration: 2 time(s) a week, for 4 weeks, for 8 visits . the patient will continue therapy at [facility]. 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 Assessment At least a 5 yr HX of LBP (previous HX of sciatica). No recent film studies have been done. He will be a low fall risk. The patient will continue his therapy at [facility]. Physical findings include limited trunk ROM with discomfort. Continue with trunk mech trng, STW (needling), and core stability/ROM exercises. Clinical Presentation: Stable and/or uncomplicated characteristics. Level of Complexity: low Problem List: activity limitations, ADLs/IADLs/self care skills, decreased functional level, decreased knowledge of HEP, decreased knowledge of precautions, fall risk, gait/locomotion, pain, range of motion/joint mobility and strength. Reason For Visit Initial Evaluation . lumbar DDD. Referred by: [facility] Adult Risk Screening There are no spiritual/cultural practices/values/need s that are important to know Initial Fall Risk Screening: ENOC has not fallen in the last 6 months. ENOC has a fear of falling. He does not need assistance with sitting, standing or walking. Does not need assistance walking in his home. He does not need assistance in an unfamiliar setting. The patient is not using an assistive device. Fall Risk Screening: Patient is identified as a fall risk. Care Plan: Low Risk: Environmental for all patients and low risk patients: Offer assistance as needed or requested, keep environment free of obstacles, keep floor clean and dry, keep room lighting, wheelchair brakes on, bed/ stretcher locked and in low position if applicable, non-slip footwear if applicable, walker/cane available if needed, side rails up if applicable and pre-emptive toileting. Living Will. Living Will: Living will on file. Patient Declined. Healthcare POA: No healthcare proxy on file. Patient Declined. Declaration of Mental Health Treatment: No mental health treatment on file. Patient Declined. Insurance Insurance reviewed Visit number: 1 [facility] Evaluating therapist Shoaib Bhandari PT. The physical therapist of record is the therapist who assumes primary responsibility for patient management and as such is held accountable for the coordination, continuation and progression of the POC. This patient?s care and PT of record will be transferred from Shoaib Bhandari PT to Carlene DODDT effective as of 12/21/22 M51.36; low fall risk Subjective Current Episode of Functional Impairment and/or Pain Date of onset: 12/21/2017 Mechanism of Injury: insidious onset. Medical Screening: Reviewed medical history form with patient and medical screening assessed. Current Medical Management:. previous PT for the LB; no recent film studies; chirop HX. Precautions: Fall Risk: low Pertinent medical HX includes: Db; OA; carotid atherosclerosis low fall risk. Functional Assessment Prior level of function: PAINFUL, DIFFICULT, OR ALTERED ADL (marked with an xx) sleep-- sitting-- sit to standing transfers-- car transfers-- standing--XX walking--XX carrying--XX stairs-- dressing lowers--XX driving-- dressing uppers-- reaching---- handling objects-- other-- . Patient stated goal(s) for treatment include: relieving pain , increasing strength , increasing mobility , walking with a normal gait , reducing symptoms , reducing/preventing future occurrences and learning preventative care measures . Work Status: retired. Current Status: unchanged . over the last yr. Patient Awareness: Patient is aware of his diagnosis and prognosis. Personal Factors That May Impact Care:. ID confirmed with B-day; speaks scottish No obtrusive barriers to learning identified/observed. Objective Ortho gr4- abdominals. ROM / Joint Mobility (Range of Motion in degrees) Lumbar: (Moser = P! Denotes Pain with Movement) Extension: Active 40%. Flexion: Active 75%. Side Bend: R Active 50%, L Active 50%. SSBs were particularly irritating to the LB area. Outcome Measures Modified Oswestry Low Back Pain Disability Index score: 24% Treatment Time in clinic started at 8:33 am Time (more content not included)... [facility] US DOPPLER CAROTIDOrdered By : Mary Yan on 02-26-2021 Patient Info Name: ENOC FERNANDES Age: 75 years : 1945 Gender: Male Exam Date: 02/26/2021 1:55 PM Patient Status: Outpatient Learning And Development Consultant: Melissa Swift, TAMMI, RDMS (AB), RVT Referring Physician: MARY YAN ; Indications I65.23 - Occlusion and stenosis of bilateral carotid arteries Procedure Description 57455 Duplex examination using B-mode, color and spectral Doppler of extracranial arteries; complete bilateral study. NASCET criteria is used when performing imaging correlation with carotid duplex interpretation. Conclusions * Right. * Minimal (1-19%) stenosis in the right internal carotid artery. * Right vertebral artery is patent with antegrade flow. * No evidence of stenosis in the right common carotid, external carotid and subclavian arteries. * Left. * Moderate (50-69%) stenosis in the left internal carotid artery. * Left vertebral artery is patent with antegrade flow. * No evidence of stenosis in the left common carotid artery. * Elevated velocity suggestive of stenosis in the left external carotid and subclavian artery. * Percent stenosis may be underestimated due to calcific shadowing. Recommendations * Based upon this study, Advanced Carotid Imaging does not appear to be warranted. Clinical correlation advised. Measurements ------- Name Value ------- Right PSV ------- Right Prox CCA PSV 97 cm/s Right Mid CCA PSV 93 cm/s Right Distal CCA PSV 97 cm/s Right Prox ICA PSV 117 cm/s Right Mid ICA PSV 114 cm/s Right Distal ICA PSV 110 cm/s Right ECA PSV 165 cm/s Right Vert PSV 94 cm/s BC PSV 138 cm/s Right Prox SCA PSV 199 cm/s Rt ICA/CCA Ratio 1.2 Measurements ------- Name Value ------- Right EDV ------- Right Prox CCA EDV 10 cm/s Right Mid CCA EDV 14 cm/s Right Distal CCA EDV 14 cm/s Right Prox ICA EDV 25 cm/s Right Mid ICA EDV 21 cm/s Right Distal ICA EDV 23 cm/s Right ECA EDV 16 cm/s Right Vert EDV 17 cm/s BC EDV 4 cm/s Right Prox SCA EDV 1 cm/s Measurements ------- Name Value ------- Left PSV ------- Left Prox CCA PSV 98 cm/s Left Mid CCA PSV 103 cm/s Left Distal CCA PSV 104 cm/s Left Prox ICA PSV 274 cm/s Left Mid ICA PSV 165 cm/s Left Distal ICA PSV 117 cm/s Left ECA PSV 466 cm/s Left Vert PSV 101 cm/s Left Prox SCA PSV 273 cm/s Lt ICA/CCA Ratio 2.6 Measurements ------- Name Value ------- Left EDV ------- Left Prox CCA EDV 15 cm/s Left Mid CCA EDV 15 cm/s Left Distal CCA EDV 17 cm/s Left Prox ICA EDV 41 cm/s Left Mid ICA EDV 25 cm/s Left Distal ICA EDV 22 cm/s Left ECA EDV 14 cm/s Left Vert EDV 16 cm/s Left Prox SCA EDV 2 cm/s Right Findings * No plaque noted in the right common carotid artery. * Calcific plaque noted in the right internal carotid artery. * Calcific plaque noted in the right external carotid artery. Left Findings * Heterogeneous plaque noted in the (more content not included)... [facility] Interface, Rad In Heart[facility] Xper Echopacs - 02/26/2021 4:33 PM EDT Patient Info Name: ENOC FERNANDES Age: 75 years : 1945 Gender: Male Exam Date: 02/26/2021 1:55 PM Patient Status: Outpatient Learning And Development Consultant: Melissa Swift, BS, RDMS (AB), RVT Referring Physician: MARY YAN ; Indications I65.23 - Occlusion and stenosis of bilateral carotid arteries Procedure Description 60071 Duplex examination using B-mode, color and spectral Doppler of extracranial arteries; complete bilateral study. NASCET criteria is used when performing imaging correlation with carotid duplex interpretation. Conclusions * Right. * Minimal (1-19%) stenosis in the right internal carotid artery. * Right vertebral artery is patent with antegrade flow. * No evidence of stenosis in the right common carotid, external carotid and subclavian arteries. * Left. * Moderate (50-69%) stenosis in the left internal carotid artery. * Left vertebral artery is patent with antegrade flow. * No evidence of stenosis in the left common carotid artery. * Elevated velocity suggestive of stenosis in the left external carotid and subclavian artery. * Percent stenosis may be underestimated due to calcific shadowing. Recommendations * Based upon this study, Advanced Carotid Imaging does not appear to be warranted. Clinical correlation advised. Measurements ------- Name Value ------- Right PSV ------- Right Prox CCA PSV 97 cm/s Right Mid CCA PSV 93 cm/s Right Distal CCA PSV 97 cm/s Right Prox ICA PSV 117 cm/s Right Mid ICA PSV 114 cm/s Right Distal ICA PSV 110 cm/s Right ECA PSV 165 cm/s Right Vert PSV 94 cm/s BC PSV 138 cm/s Right Prox SCA PSV 199 cm/s Rt ICA/CCA Ratio 1.2 Measurements ------- Name Value ------- Right EDV ------- Right Prox CCA EDV 10 cm/s Right Mid CCA EDV 14 cm/s Right Distal CCA EDV 14 cm/s Right Prox ICA EDV 25 cm/s Right Mid ICA EDV 21 cm/s Right Distal ICA EDV 23 cm/s Right ECA EDV 16 cm/s Right Vert EDV 17 cm/s BC EDV 4 cm/s Right Prox SCA EDV 1 cm/s Measurements ------- Name Value ------- Left PSV ------- Left Prox CCA PSV 98 cm/s Left Mid CCA PSV 103 cm/s Left Distal CCA PSV 104 cm/s Left Prox ICA PSV 274 cm/s Left Mid ICA PSV 165 cm/s Left Distal ICA PSV 117 cm/s Left ECA PSV 466 cm/s Left Vert PSV 101 cm/s Left Prox SCA PSV 273 cm/s Lt ICA/CCA Ratio 2.6 Measurements ------- Name Value ------- Left EDV ------- Left Prox CCA EDV 15 cm/s Left Mid CCA EDV 15 cm/s Left Distal CCA EDV 17 cm/s Left Prox ICA EDV 41 cm/s Left Mid ICA EDV 25 cm/s Left Distal ICA EDV 22 cm/s Left ECA EDV 14 cm/s Left Vert EDV 16 cm/s Left Prox SCA EDV 2 cm/s Right Findings * No plaque noted in the right common carotid artery. * Calcific plaque noted in the right internal carotid artery. * Calcific plaque noted in the right external carotid artery. Left Findings * Heterogeneous plaque noted in the left common carotid artery. * Calcific plaque noted in the left internal carotid artery. * Calcific plaque noted in the left external carotid artery. Risk Factors Patient has a history of hypertension, diabetes and tobacco use-current. . Report Signatures Finalized by JO-ANN Nguyen DO on 02/26/2021 04:31 PM [facility] Auto Diffon 07-04-2019 Basophils (Bld) [#/Vol] 0.1 E3/mcL Normal 0.0-0.2 [facility] Comment on above: Order Comment: Order Added by Discern Expert. Performed By: #### 2 [id number] #### MIKE [employer] [address] [place] [address] Basophils/100 WBC (Bld) 1.2 % Normal 0.0-2.0 [facility] Comment on above: Order Comment: Order Added by Discern Expert. Performed By: #### 2 [id number] #### MIKE [employer] [address] [place] [address] Eos Absolute 0.2 E3/mcL Normal 0.0-0.7 [facility] Comment on above: Order Comment: Order Added by Discern Expert. Performed By: #### 2 074220 #### MIKE [employer] [address] [place] [address] Eosinophils/100 WBC (Bld) 2.0 % Normal 0.0-11.0 [facility] Comment on above: Order Comment: Order Added by Discern Expert. Performed By: #### 2 993035 #### MIKE Rodriguez[address] [address] Lymphocytes (Bld) [#/Vol] 1.7 E3/mcL Normal 1.2-3.4 [facility] Comment on above: Order Comment: Order Added by Discern Expert. Performed By: #### 2 531476 #### MIKE Rodriguez[address] [address] Lymphocytes/100 WBC (Bld) 20.9 % Normal 20.0-55.0 [facility] Comment on above: Order Comment: Order Added by Discern Expert. Performed By: #### 2 609643 #### MIKE Rodriguez[address] [address] Davis Absolute 0.7 E3/mcL Normal 0.0-0.7 [facility] Comment on above: Order Comment: Order Added by Discern Expert. Performed By: #### 2 595037 #### MIKE Rodriguez[address] [address] Monocytes/100 WBC (Bld) 8.0 % Normal 0.0-10.0 [facility] Comment on above: Order Comment: Order Added by Discern Expert. Performed By: #### 2 957211 #### MIKE Rodriguez[address] [address] Neutro Absolute 5.5 E3/mcL Normal 1.4-6.5 [facility] Comment on above: Order Comment: Order Added by Discern Expert. Performed By: #### 2 501685 #### MIKE [address] [address] Neutro Auto 67.9 % Normal 37.0-75.0 [facility] Comment on above: Order Comment: Order Added by Discern Expert. Performed By: #### 2 078562 #### MIKE Jennifer[address] [address] CBC w/ Auto Diffon 9 Erythrocyte distribution width (RBC) [Ratio] 13.3 % Normal 11.5-14.5 [facility] Comment on above: Performed By: #### 2 563717 #### MIKE [place] [address] [place] [address] Hematocrit (Bld) [Volume fraction] 40.4 % Low 42.0-52.0 [facility] Comment on above: Performed By: #### 2 183028 #### MIKE Rodriguez[address] [address] Hemoglobin (Bld) [Mass/Vol] 13.6 g/dL Normal 13.5-18.0 [facility] Comment on above: Performed By: #### 2 952562 #### MIKE Rodriguez[address] [address] MCH (RBC) [Entitic mass] 31.6 pg High 27.0-31.0 [facility] Comment on above: Performed By: #### 2 948342 #### MIKE Rodriguez[address] [address] MCHC (RBC) [Mass/Vol] 33.7 g/dL Normal 33.0-37.0 [facility] Comment on above: Performed By: #### 2 390229 #### MIKE Rodriguez[address] [address] MCV (RBC) [Entitic vol] 93.8 fL Normal 78.0-100.0 [facility] Comment on above: Performed By: #### 2 409992 #### MIKE Rodriguez[address] [address] Platelet mean volume (Bld) [Entitic vol] 10.2 fL Normal 7.4-11.0 [facility] Comment on above: Performed By: #### 2 660813 #### MIKEAnabelle RodriguezSHADO [address] [place] [address] Platelets (Bld) [#/Vol] 218 E3/mcL Normal 130-400 [facility] Comment on above: Performed By: #### 2 843394 #### MIKEAnabelle RodriguezSHADO [address] [place] [address] RBC (Bld) [#/Vol] 4.31 E6/mcL Normal 3.90-6.10 [facility] Comment on above: Performed By: #### 2 117024 #### MIKE Zazueta [facility] [place] [address] WBC (Bld) [#/Vol] 8.1 E3/mcL Normal 3.6-11.0 [facility] Comment on above: Performed By: #### 2 655965 #### MIKE [place] [id number] CMPon 07-04-2019 Albumin [Mass/Vol] 4.2 g/dL Normal 3.4-5.0 [facility] Comment on above: Performed By: #### 2 799163 #### MIKE Rodriguez[address] [address] Albumin/Globulin [Mass ratio] 1.8 {ratio} Normal 1.1-1.9 [facility] Comment on above: Performed By: #### 2 235474 #### MIKE Rodriguez[address] [address] Alk Phos 81 Int._Unit/L Normal 33-136 [facility] Comment on above: Performed By: #### 2 527161 #### MIKE [place] [place] [place] [address] ALT [Catalytic activity/Vol] 15 Int._Unit/L Normal 10-52 [facility] Comment on above: Performed By: #### 2 993052 #### MIKE [place] [address] [place] [address] Anion gap [Moles/Vol] 12 mmol/L Normal 10-20 [facility] Comment on above: Performed By: #### 2 775844 #### MIKEAnabelle Zazueta [address] [place] [address] AST [Catalytic activity/Vol] 18 Int._Unit/L Normal 9-39 [facility] Comment on above: Performed By: #### 2 543325 #### MIKE RodriguezSHADO [facility] [place] [address] Bili Total 0.35 mg/dL Normal 0.00-1.20 [facility] Comment on above: Performed By: #### 2 280232 #### MIKE [employer] [address] [place] [address] Calcium [Mass/Vol] 9.5 mg/dL Normal 8.6-10.3 [facility] Comment on above: Performed By: #### 2 227487 #### MIKE [employer] [address] [place] [address] Chloride [Moles/Vol] 108 mmol/L High 98-107 [facility] Comment on above: Performed By: #### 2 848049 #### MIKE [employer] [address] [place] [address] CO2 [Moles/Vol] 27.0 mmol/L Normal 21.0-32.0 [facility] Comment on above: Performed By: #### 2 743100 #### MIKE [employer] [facility] [place] [address] Creatinine [Mass/Vol] 1.0 mg/dL Normal 0.5-1.3 [facility] Comment on above: Performed By: #### 2 230092 #### MIKE [employer] [address] [place] [address] Globulin (S) [Mass/Vol] 2.0 g/dL Normal 2.0-4.0 [facility] Comment on above: Performed By: #### 2 866467 #### MIKE [employer] [address] [place] [address] Glucose [Mass/Vol] 159 mg/dL High 70-99 [facility] Comment on above: Performed By: #### 2 819625 #### MIKE [employer] [address] [place] [address] Potassium [Moles/Vol] 3.7 mmol/L Normal 3.5-5.3 [facility] Comment on above: Performed By: #### 2 812369 #### MIKE [employer] [address] [place] [address] Protein [Mass/Vol] 6.5 g/dL Normal 6.4-8.2 [facility] Comment on above: Performed By: #### 2 383454 #### [facility] [employer] [address] [place] [address] Sodium [Moles/Vol] 143 mmol/L Normal 136-145 [facility] Comment on above: Performed By: #### 2 150642 #### MIKE [employer] [address] [place] [address] Urea nitrogen [Mass/Vol] 19 mg/dL Normal 6-23 [facility] Comment on above: Performed By: #### 2 297540 #### MIKE [employer] [address] [place] [address] Urea nitrogen/Creatinine [Mass ratio] 19.0 ratio Normal 5.4-30.0 [facility] Comment on above: Performed By: #### 2 435684 #### MIKE [employer] [address] [place] [address] [id number] 07-04-2019 HbA1c (Bld) [Mass fraction] 8.3 % High 4.0-6.3 [facility] Comment on above: Performed By: #### 2 633931 #### MIKE [employer] [address] [place], [place] [id number] eGFRon 07-04-2019 GFR/1.73 sq M predicted among non-blacks MDRD (S/P/Bld) [Vol rate/Area] mL/min/{1.73_m2} Normal [facility] Comment on above: Order Comment: Order added by Discern Expert. Performed By: #### 2 660472 #### MIKE [employer] [address] [place] [address] Auto Diffon 03-03-2019 Basophils (Bld) [#/Vol] 0.1 E3/mcL Normal 0.0-0.2 [facility] Comment on above: Order Comment: Order Added by Discern Expert. Performed By: #### 2 534438 #### MIKE RemHemo [address] [place] [address] Basophils/100 WBC (Bld) 1.0 % Normal 0.0-2.0 [facility] Comment on above: Order Comment: Order Added by Discern Expert. Performed By: #### 2 241846 #### MIKE RemHemo [address] [place] [address] Eos Absolute 0.2 E3/mcL Normal 0.0-0.7 [facility] Comment on above: Order Comment: Order Added by Discern Expert. Performed By: #### 2 207432 #### MIKE RemHemo [address] [place] [address] Eosinophils/100 WBC (Bld) 2.6 % Normal 0.0-11.0 [facility] Comment on above: Order Comment: Order Added by Discern Expert. Performed By: #### 2 565620 #### MIKE RemH[employer] [address] [place] [address] Lymphocytes (Bld) [#/Vol] 2.0 E3/mcL Normal 1.2-3.4 [facility] Comment on above: Order Comment: Order Added by Discern Expert. Performed By: #### 2 879047 #### MIKE RodriguezHemo [address] [place] [address] Lymphocytes/100 WBC (Bld) 26.7 % Normal 20.0-55.0 [facility] Comment on above: Order Comment: Order Added by Discern Expert. Performed By: #### 2 857209 #### MIKE RemH[employer] [address] [place] [address] Davis Absolute 0.7 E3/mcL Normal 0.0-0.7 [facility] Comment on above: Order Comment: Order Added by Discern Expert. Performed By: #### 2 629778 #### MIKE RemHemo [address] [place] [address] Monocytes/100 WBC (Bld) 9.4 % Normal 0.0-10.0 [facility] Comment on above: Order Comment: Order Added by Discern Expert. Performed By: #### 2 086000 #### MIKE Rem[employer] [address] [place] [address] Neutro Absolute 4.5 E3/mcL Normal 1.4-6.5 [facility] Comment on above: Order Comment: Order Added by Discern Expert. Performed By: #### 2 251421 #### MIKE RemHemo [address] [place] [address] Neutro Auto 60.3 % Normal 37.0-75.0 [facility] Comment on above: Order Comment: Order Added by Discern Expert. Performed By: #### 2 584706 #### MIKE Rem[employer] [address] [place] [address] CBC w/ Auto Diffon 9 Erythrocyte distribution width (RBC) [Ratio] 13.2 % Normal 11.5-14.5 [facility] Comment on above: Performed By: #### 2 018123 #### MIKE RodriguezHemo [address] [place] [address] Hematocrit (Bld) [Volume fraction] 41.7 % Low 42.0-52.0 [facility] Comment on above: Performed By: #### 2 809670 #### MIKE RemHemo [address] [place] [address] Hemoglobin (Bld) [Mass/Vol] 14.1 g/dL Normal 13.5-18.0 [facility] Comment on above: Performed By: #### 2 147384 #### MIKE RodriguezHemo [address] [place] [address] MCH (RBC) [Entitic mass] 31.5 pg High 27.0-31.0 [facility] Comment on above: Performed By: #### 2 170965 #### MIKE RemHemo [facility] [place] [address] MCHC (RBC) [Mass/Vol] 33.7 g/dL Normal 33.0-37.0 [facility] Comment on above: Performed By: #### 2 652486 #### MIKE RodriguezHemo [address] [place] [address] MCV (RBC) [Entitic vol] 93.5 fL Normal 78.0-100.0 [facility] Comment on above: Performed By: #### 2 161141 #### MIKE RemHemo [address] [place] [address] Platelet mean volume (Bld) [Entitic vol] 10.0 fL Normal 7.4-11.0 [facility] Comment on above: Performed By: #### 2 170821 #### MIKE RemHemo [address] [place] [address] Platelets (Bld) [#/Vol] 218 E3/mcL Normal 130-400 [facility] Comment on above: Performed By: #### 2 363837 #### MIKE RemHemo [address] [place] [address] RBC (Bld) [#/Vol] 4.46 E6/mcL Normal 3.90-6.10 [facility] Comment on above: Performed By: #### 2 322246 #### MIKE RemHemo [facility] [place] [address] WBC (Bld) [#/Vol] 7.5 E3/mcL Normal 3.6-11.0 [facility] Comment on above: Performed By: #### 2 380430 #### MIKE RemHemo [address] [place] [address] CMPon 03-03-2019 Albumin [Mass/Vol] 4.1 g/dL Normal 3.4-5.0 [facility] Comment on above: Performed By: #### 2 351734 #### MIKE [employer] [address] [place] [address] Albumin/Globulin [Mass ratio] 1.6 {ratio} Normal 1.1-1.9 [facility] Comment on above: Performed By: #### 2 447720 #### [facility] [employer] [address] [place] [address] Alk Phos 83 Int._Unit/L Normal 33-136 [facility] Comment on above: Performed By: #### 2 277018 #### MIKE [employer] [address] [place] [address] ALT [Catalytic activity/Vol] 13 Int._Unit/L Normal 10-52 [facility] Comment on above: Performed By: #### 2 177008 #### MIKE [employer] [address] [place] [address] Anion gap [Moles/Vol] 9 mmol/L Low 10-20 [facility] Comment on above: Performed By: #### 2 672661 #### MIKE [employer] [address] [place] [address] AST [Catalytic activity/Vol] 16 Int._Unit/L Normal 9-39 [facility] Comment on above: Performed By: #### 2 952573 #### MIKE [employer] [address] [place] [address] Bili Total 0.55 mg/dL Normal 0.00-1.20 [facility] Comment on above: Performed By: #### 2 475344 #### MIKE [employer] [address] [place] [address] Calcium [Mass/Vol] 9.3 mg/dL Normal 8.6-10.3 [facility] Comment on above: Performed By: #### 2 341546 #### MIKE [employer] [address] [place] [address] Chloride [Moles/Vol] 105 mmol/L Normal 98-107 [facility] Comment on above: Performed By: #### 2 048817 #### MIKE [employer] [address] [place] [address] CO2 [Moles/Vol] 28.0 mmol/L Normal 21.0-32.0 [facility] Comment on above: Performed By: #### 2 569519 #### MIKE [employer] [address] [place] [address] Creatinine [Mass/Vol] 1.0 mg/dL Normal 0.5-1.3 [facility] Comment on above: Performed By: #### 2 444024 #### [facility] [employer] [address] [place] [address] Globulin (S) [Mass/Vol] 3.0 g/dL Normal 2.0-4.0 [facility] Comment on above: Performed By: #### 2 570098 #### [facility] [employer] [address] [place] [address] Glucose [Mass/Vol] 273 mg/dL High 70-99 [facility] Comment on above: Performed By: #### 2 057218 #### MIKE [employer] [address] [place] [address] Potassium [Moles/Vol] 4.2 mmol/L Normal 3.5-5.3 [facility] Comment on above: Performed By: #### 2 773856 #### MIKE [employer] [address] [place] [address] Protein [Mass/Vol] 6.6 g/dL Normal 6.4-8.2 [facility] Comment on above: Performed By: #### 2 779352 #### MIKE [employer] [address] [place] [address] Sodium [Moles/Vol] 138 mmol/L Normal 136-145 [facility] Comment on above: Performed By: #### 2 392735 #### MIKE [employer] [facility] [place] [address] Urea nitrogen [Mass/Vol] 20 mg/dL Normal 6-23 [facility] Comment on above: Performed By: #### 2 951557 #### MIKE [employer] [address] [place] [address] Urea nitrogen/Creatinine [Mass ratio] 20.0 ratio Normal 5.4-30.0 [facility] Comment on above: Performed By: #### 2 952100 #### MIKE [employer] [address] [place] [address] Free T4on 03-03-2019 Free T4 [Mass/Vol] 0.98 ng/dL Normal 0.58-1.64 [facility] Comment on above: Performed By: #### 2 645525 #### MIKE [employer] [address] [place] [address] MweI2rev 03-03-2019 HbA1c (Bld) [Mass fraction] 8.4 % High 4.0-6.3 [facility] Comment on above: Performed By: #### 2 336371 #### MIKE [employer] [address] [place] [address] Lipid Profileon 03-03-2019 Cholesterol [Mass/Vol] 164 mg/dL Normal 0-199 [facility] Comment on above: Result Comment: TOTA L CHOLEESTEROL: <200 NORMAL 200 - 239 BORDERLINE HIGH >240 HIGH Performed By: #### 2 580461 #### MIKE RemSHADO [address] [place] [address] Cholesterol in HDL [Mass/Vol] 53 mg/dL Normal 40-60 [facility] Comment on above: Performed By: #### 2 031554 #### MIKE [employer] [address] [place] [address] Cholesterol in LDL [Mass/Vol] 98 mg/dL Normal 0-130 [facility] Comment on above: Result Comment: <100 OPTIMAL 100-129 NEAR / ABOVE OPTIMAL 130-159 BORDERLINE HIGH 160-189 HIGH >190 VERY HIGH CALC LDL NOT VALID WHEN TRIGLYCERIDE IS >400 MG/DL Performed By: #### 2 883315 #### MIKE [employer] [facility] [place] [address] Cholesterol in VLDL [Mass/Vol] 13 mg/dL Normal 0-40 [facility] Comment on above: Performed By: #### 2 483766 #### MIKE [employer] [facility] [place] [address] Triglyceride [Mass/Vol] 66 mg/dL Normal 0-149 [facility] Comment on above: Result Comment: AGE DESIRABLE BORDERLINE HIGH 91 D - 9 Y 0 - 74 75 - 99 > 100 10 - 19 Y 0 - 89 90 - 129 > 130 20 -24 Y 0 - 114 115 - 149 > 150 > 25 0 - 149 150 - 199 200 - 499 Performed By: #### 2 162231 #### MIKE [employer] [address] [place] [address] Microalb/Creat Ratioon 03-03 Creatinine [Mass/Vol] 111.0 mg/dL Normal 20.0-300.0 [facility] Comment on above: Performed By: #### 1 [id number] #### MIKE [employer] [address] [place] [address] Creatinine [Mass/Vol] 95 ug/mg High 0-30 [facility] Comment on above: Performed By: #### 1 [id number] #### MIKE [employer] [address] [place] [address] Ur Microalbumin 10.6 mg/dL High 0.0-1.9 [facility] Comment on above: Performed By: #### 1 [id number] #### MIKE [employer] [address] [place] [address] TSHon 03-03-2019 TSH Qn 0.52 mcIU/mL Normal 0.30-5.60 [facility] Comment on above: Performed By: #### 2 466825 #### MIKE [employer] [address] [place] [address] eGFRon 03-03-2019 GFR/1.73 sq M predicted among non-blacks MDRD (S/P/Bld) [Vol rate/Area] mL/min/{1.73_m2} Normal [facility] Comment on above: Order Comment: Order added by Discern Expert. Performed By: #### 1 [id number] #### MIKE RemSHADO [facility] [place] [address] XR Spine Lumbosacral Complet e w/ Bendingon 02-08-2019 XR Spine Lumbosacral Complete w/ Bending Exam Date/Time: 02/08/2019 11:16 EDT Reason for Exam: M54.16 Report STUDY: XR Spine Lumbosacral Complete w/ Bending; 02/08/2019 11:16 am INDICATION: M54.16. COMPARISON: 08/12/2018 ACCESSION NUMBER(S): [id number] ORDERING CLINICIAN: Yamilex Muro FINDINGS: 8 views of the lumbar spine including supine and standing AP, lateral and lateral flexion and extension views were obtained. There is no acute fracture identified. There is mild retrolisthesis of L2 on L3 and of L3 on L4. [id number] disc space narrowing and marginal osteophyte formation is seen at the L1-2, L2-3 and L3-4 levels. Moderate facet degenerative changes are seen in the mid to lower lumbar spine. No abnormal motion is seen on the flexion and extension views. Atherosclerotic calcifications are seen throughout the abdominal aorta. IMPRESSION: 1. No evidence of acute fracture. 2. Degenerative changes throughout the lumbar spine, as described above. FINAL REPORT Dictated: 02/08/2019 2:02 pm Jaret Walker MD Signed (Electronic Signature): 02/08/2019 2:02 pm Signed by: Jaret Walker MD Technologist: GEE Normal [facility] CMPon 11-02-2018 Albumin [Mass/Vol] 4.2 g/dL Normal 3.4-5.0 [facility] Comment on above: Performed By: #### 2 [id number] #### MIKE Rem[facility]ADO [facility] [place] [address] Albumin/Globulin [Mass ratio] 1.8 {ratio} Normal 1.1-1.9 [facility] Comment on above: Performed By: #### 2 [id number] #### MIKE [employer] [address] [place] [address] Alk Phos 98 Int._Unit/L Normal 33-136 [facility] Comment on above: Performed By: #### 2 [id number] #### MIKE [employer] [address] [place] [address] ALT [Catalytic activity/Vol] 18 Int._Unit/L Normal 10-52 [facility] Comment on above: Performed By: #### 2 [id number] #### MIKE [employer] [address] [place] [address] Anion gap [Moles/Vol] 10 mmol/L Normal 10-20 [facility] Comment on above: Performed By: #### 2 [id number] #### [facility] [place] [address] AST [Catalytic activity/Vol] 17 Int._Unit/L Normal 9-39 [facility] Comment on above: Performed By: #### 2 [id number] #### MIKE [employer] [address] [place] [address] Bili Total 0.39 mg/dL Normal 0.00-1.20 [facility] Comment on above: Performed By: #### 2 [id number] #### MIKE [employer] [address] [place] [address] Calcium [Mass/Vol] 9.7 mg/dL Normal 8.6-10.3 [facility] Comment on above: Performed By: #### 2 [id number] #### MIKE [employer] [address] [place] [address] Chloride [Moles/Vol] 106 mmol/L Normal 98-107 [facility] Comment on above: Performed By: #### 2 [id number] #### MIKE [employer] [address] [place] [address] CO2 [Moles/Vol] 27.0 mmol/L Normal 21.0-32.0 [facility] Comment on above: Performed By: #### 2 [id number] #### [facility] [address] [place] [address] Creatinine [Mass/Vol] 1.2 mg/dL Normal 0.5-1.3 [facility] Comment on above: Performed By: #### 2 [id number] #### MIKE [employer] [address] [place] [address] Globulin (S) [Mass/Vol] 2.0 g/dL Normal 2.0-4.0 [facility] Comment on above: Performed By: #### 2 [id number] #### MIKE [employer] [facility] [place] [address] Glucose [Mass/Vol] 307 mg/dL High 70-99 [facility] Comment on above: Performed By: #### 2 [id number] #### MIKE [address] [address] Potassium [Moles/Vol] 3.9 mmol/L Normal 3.5-5.3 [facility] Comment on above: Performed By: #### 2 [id number] #### MIKE [address] [address] Protein [Mass/Vol] 6.5 g/dL Normal 6.4-8.2 [facility] Comment on above: Performed By: #### 2 [id number] #### MIKE Rem[address] [address] Sodium [Moles/Vol] 139 mmol/L Normal 136-145 [facility] Comment on above: Performed By: #### 2 [id number] #### MIKE Rem[address] [address] Urea nitrogen [Mass/Vol] 23 mg/dL Normal 6-23 [facility] Comment on above: Performed By: #### 2 [id number] #### MIKE [address] [address] Urea nitrogen/Creatinine [Mass ratio] 19.2 ratio Normal 5.4-30.0 [facility] Comment on above: Performed By: #### 2 [id number] #### MIKE [employer] [facility] [place] [address] [id number] 11-02-2018 HbA1c (Bld) [Mass fraction] 8.4 % High 4.0-6.3 [facility] Comment on above: Performed By: #### 3 [id number] #### MIKE Chemistry Manual Subsection [address] [place] [address] eGFRon 11-02-2018 GFR/1.73 sq M predicted among non-blacks MDRD (S/P/Bld) [Vol rate/Area] mL/min/{1.73_m2} [facility] Comment on above: Order Comment: Order added by Discern Expert. Performed By: #### 1 [id number] #### MIKE [employer] [facility] [place] [address] XR Spine Lumbar w/ Obliqueso n 08-13-2018 XR Spine Lumbar w/ Obliques Exam Date/Time: 08/12/2018 14:38 EDT Reason for Exam: low back pain with left sided sciatica Report STUDY: XR Spine Lumbar w/ Obliques; 08/12/2018 2:38 pm INDICATION: low back pain with left sided sciatica. COMPARISON: None. ACCESSION NUMBER(S): [id number] ORDERING CLINICIAN: Nancy Mirza FINDINGS: Five views of the lumbar spine including AP, lateral, lateral cone-down and bilateral oblique views were obtained. There is no acute fracture identified. There is mild retrolisthesis of L2 on L3 and of L3 on L4. Ttoc-qy-[id number] disc space narrowing and marginal osteophyte formation is seen at the L1-2, L2-3 and L3-4 levels. Moderate facet degenerative changes are seen in the mid to lower lumbar spine. There is no evidence of pars interarticularis defect. IMPRESSION: 1. No evidence of acute fracture. 2. Degenerative changes throughout the lumbar spine, as described above. FINAL REPORT Dictated: 08/13/2018 11:05 am Jaret Walker MD Signed (Electronic Signature): 08/13/2018 11:05 am Signed by: Jaret Walker MD Technologist: KAVITA [facility] Carotid Duplexon 02-09-2018 Carotid Duplex Non-Invasive Vascula r Patient: TR [facility] Rec#: [id number] (Age): 1945(72y) Study Date: 02/09/2018 Room#: Type: Sex: M Reading: AALIYAH Reading: Flo Abdi DO, RPVI Referring: NANCY MIRZA JOHN Cash Management Associate: Christie Trinidad Procedure Info: [id number]... Study Quality: Carotid Duplex: adequate Diagnosis: I65.23 Occlusion and stenosis of bilateral carotid arteries Carotid Duplex (Carotid occlusion/stenosis w/o infarct 433.10 ) Conclusions There was no evidence of stenosis of the right common carotid artery. There was mild stenosis (20-49%) of the right internal carotid artery. There was no evidence of stenosis in the right external carotid artery. The right vertebral artery was patent with antegrade flow. There was no evidence of stenosis of the left common carotid artery. There was moderate stenosis (50-69%) of the left internal carotid artery. There were elevated velocities in the left external carotid artery, suggestive of stenosis. The left vertebral artery was patent with antegrade flow. Bilateral subclavian artery velocity acceleration noted, however no evidence of stenosis visualized. Based upon this study, Advanced Carotid Imaging does not appear to be warranted. Clinical correlation advised. Findings The right common carotid artery showed no evidence of plaque. The right internal carotid artery contained a small amount of calcified plaque, heterogeneous in consistency. The right external carotid artery showed no evidence of plaque. The left common carotid artery showed no evidence of plaque. The left internal carotid artery contained a moderate amount of calcified plaque, heterogeneous in consistency. The left external carotid artery contained a small amount of calcified plaque, heterogeneous in consistency. The procedure was explained to the patient. The patient voiced understanding. Measurements Right Carotid PSV Name Value Units PCCA 143 cm/sec MCCA -117 cm/sec DCCA 113 cm/sec PICA -103 cm/sec DAKOTA -131 cm/sec DICA -133 cm/sec ECA -196 cm/sec Vertebral -73.7 cm/sec Enrico PSV 251 cm/sec PSCA 202 cm/sec Right Carotid EDV Name Value Units PCCA 15.4 cm/sec MCCA -21.1 cm/sec DCCA 18 cm/sec PICA -18 cm/sec DAKOTA -29 cm/sec DICA -26.7 cm/sec ECA -17.4 cm/sec Vertebral -10.3 cm/sec Enrico EDV 23 cm/sec Left Carotid PSV Name Value Units PCCA 137 cm/sec MCCA 149 cm/sec DCCA 127 cm/sec PICA 218 cm/sec DAKOTA -183 cm/sec DICA -114 cm/sec ECA -241 cm/sec Vertebral -90 cm/sec PSCA 387 cm/sec Left Carotid EDV Name Value Units PCCA 14.7 cm/sec MCCA 18.4 cm/sec DCCA 20.3 cm/sec PICA 36 cm/sec DAKOTA -20.7 cm/sec DICA -25.5 cm/sec ECA -14.1 cm/sec Vertebral -12.1 cm/sec Blood Pressures and Ratios Name Value Units R ICA/CCA 1.14 ratio L ICA/CCA 1.33 ratio History Carotid Artery Stenosis. Diabetes. Hypertension. Tobacco Use-Current. Electronically signed at 02/09/2018 16:34:44 by: Flo Abdi DO, RPVI Invalid Interpretation Code [facility] RAD Carotid Duplex Interface, Rad In [facility] Xper Echopacs - 02/09/2018 4:37 PM EDT Non-Invasive Vascular Patient: TR [facility] Rec#: [id number] (Age): 1945(72y) Study Date: 02/09/2018 Room#: Type: Sex: M Reading: AALIYAH Reading: Flo Abdi DO, RPVI Referring: NANCY MIRZA JOHN Cash Management Associate: Christie Trinidad Procedure Info: [id number]... Study Quality: Carotid Duplex: adequate Diagnosis: I65.23 Occlusion and stenosis of bilateral carotid arteries Carotid Duplex (Carotid occlusion/stenosis w/o infarct 433.10 ) Conclusions There was no evidence of stenosis of the right common carotid artery. There was mild stenosis (20-49%) of the right internal carotid artery. There was no evidence of stenosis in the right external carotid artery. The right vertebral artery was patent with antegrade flow. There was no evidence of stenosis of the left common carotid artery. There was moderate stenosis (50-69%) of the left internal carotid artery. There were elevated velocities in the left external carotid artery, suggestive of stenosis. The left vertebral artery was patent with antegrade flow. Bilateral subclavian artery velocity acceleration noted, however no evidence of stenosis visualized. Based upon this study, Advanced Carotid Imaging does not appear to be warranted. Clinical correlation advised. Findings The right common carotid artery showed no evidence of plaque. The right internal carotid artery contained a small amount of calcified plaque, heterogeneous in consistency. The right external carotid artery showed no evidence of plaque. The left common carotid artery showed no evidence of plaque. The left internal carotid artery contained a moderate amount of calcified plaque, heterogeneous in consistency. The left external carotid artery contained a small amount of calcified plaque, heterogeneous in consistency. The procedure was explained to the patient. The patient voiced understanding. Measurements Right Carotid PSV Name Value Units PCCA 143 cm/sec MCCA -117 cm/sec DCCA 113 cm/sec PICA -103 cm/sec DAKOTA -131 cm/sec DICA -133 cm/sec ECA -196 cm/sec Vertebral -73.7 cm/sec Enrico PSV 251 cm/sec PSCA 202 cm/sec Right Carotid EDV Name Value Units PCCA 15.4 cm/sec MCCA -21.1 cm/sec DCCA 18 cm/sec PICA -18 cm/sec DAKOTA -29 cm/sec DICA -26.7 cm/sec ECA -17.4 cm/sec Vertebral -10.3 cm/sec Enrico EDV 23 cm/sec Left Carotid PSV Name Value Units PCCA 137 cm/sec MCCA 149 cm/sec DCCA 127 cm/sec PICA 218 cm/sec DAKOTA -183 cm/sec DICA -114 cm/sec ECA -241 cm/sec Vertebral -90 cm/sec PSCA 387 cm/sec Left Carotid EDV Name Value Units PCCA 14.7 cm/sec MCCA 18.4 cm/sec DCCA 20.3 cm/sec PICA 36 cm/sec DAKOTA -20.7 cm/sec DICA -25.5 cm/sec ECA -14.1 cm/sec Vertebral -12.1 cm/sec Blood Pressures and Ratios Name Value Units R ICA/CCA 1.14 ratio L ICA/CCA 1.33 ratio History Carotid Artery Stenosis. Diabetes. Hypertension. Tobacco Use-Current. Electronically signed at 02/09/2018 16:34:44 by: Flo Abdi DO, JO-ANN Invalid Interpretation Code [facility] RAD Vital Signs Date Time Vital Sign Value Performing Clinician Facility 03-12-2025 13:50-0400 Body mass index (BMI) [Ratio] 21.9 kg/m2 Paty Ortega LAUNCH OPERATOR Work Phone: [facility] 03-12-2025 13:50-0400 Body weight 63.41 kg Paty Ortega LAUNCH OPERATOR Work Phone: [facility] 03-12-2025 13:50-0400 Diastolic blood pressure 61 mm[Hg] Patyeduar Ortega LAUNCH OPERATOR Work Phone: [facility] 03-12-2025 13:50-0400 Heart rate 69 /min Paty Ortega LAUNCH OPERATOR Work Phone: [facility] 03-12-2025 13:50-0400 Systolic blood pressure 166 mm[Hg] Paty Ortega LAUNCH OPERATOR Work Phone: [facility] 03-09-2025 09:42-0400 Body height 170.2 cm Woo Grigsby MD Work Phone: [facility] 03-09-2025 09:42-0400 Body mass index (BMI) [Ratio] 21.9 kg/m2 Woo Grigsby MD Work Phone: [facility] 03-09-2025 09:42-0400 Body weight 63.41 kg Woo Grigsby MD Work Phone: [facility] 03-09-2025 09:42-0400 Diastolic blood pressure 54 mm[Hg] Woo Grigsby MD Work Phone: [facility] 03-09-2025 09:42-0400 Heart rate 73 /min Woo Grigsby MD Work Phone: [facility] 03-09-2025 09:42-0400 SaO2% (BldA) [Mass fraction] 98 % Woo Grigsby MD Work Phone: [facility] 03-09-2025 09:42-0400 Systolic blood pressure 172 mm[Hg] Woo Grigsby MD Work Phone: [facility] 02-26-2025 13:01-0400 Body height 172.7 cm Ayanna Albert DO Work Phone: [facility] 02-26-2025 13:01-0400 Body mass index (BMI) [Ratio] 21.47 kg/m2 Ayanna Albert DO Work Phone: [facility] 02-26-2025 13:01-0400 Body weight 64.05 kg Ayanna Albert DO Work Phone: [facility] 02-26-2025 13:01-0400 Diastolic blood pressure 68 mm[Hg] Ayanna Albert DO Work Phone: [facility] 02-26-2025 13:01-0400 Heart rate 72 /min Ayanna Albert DO Work Phone: [facility] 02-26-2025 13:01-0400 Systolic blood pressure 158 mm[Hg] Ayanna Albert DO Work Phone: [facility] 11-14-2024 10:44-0500 Diastolic blood pressure 61 mm[Hg] Woo Grigsby MD Work Phone: [facility] 11-14-2024 10:44-0500 Heart rate 57 /min Woo Grigsby MD Work Phone: [facility] 11-14-2024 10:44-0500 SaO2% (BldA) [Mass fraction] 96 % Woo Grigsby MD Work Phone: [facility] 11-14-2024 10:44-0500 Systolic blood pressure 185 mm[Hg] Woo Grigsby MD Work Phone: [facility] 11-14-2024 10:37-0500 Body height 170.2 cm Woo Grigsby MD Work Phone: [facility] 11-14-2024 10:37-0500 Body mass index (BMI) [Ratio] 23.57 kg/m2 Woo Grigsby MD Work Phone: [facility] 11-14-2024 10:37-0500 Body weight 68.27 kg Woo Grigsby MD Work Phone: [facility] 11-13-2024 11:16-0500 Body mass index (BMI) [Ratio] 23.45 kg/m2 Paty Ortega LAUNCH OPERATOR Work Phone: [facility] 11-13-2024 11:16-0500 Body weight 67.9 kg Paty Ortega LAUNCH OPERATOR Work Phone: [facility] 11-13-2024 11:16-0500 Diastolic blood pressure 51 mm[Hg] Paty Ortega LAUNCH OPERATOR Work Phone: [facility] 11-13-2024 11:16-0500 Heart rate 71 /min Paty Ortega LAUNCH OPERATOR Work Phone: [facility] 11-13-2024 11:16-0500 Systolic blood pressure 107 mm[Hg] Paty Ortega LAUNCH OPERATOR Work Phone: [facility] 11-09-2024 10:42-0500 Diastolic blood pressure 64 mm[Hg] Kristy Parker MD Work Phone: [facility] 11-09-2024 10:42-0500 Heart rate 58 /min Kristy Parker MD Work Phone: [facility] 11-09-2024 10:42-0500 Systolic blood pressure 160 mm[Hg] Kristy Parker MD Work Phone: [facility] 11-09-2024 10:32-0500 Body height 170.2 cm Kristy Parker MD Work Phone: [facility] 11-09-2024 10:32-0500 Body mass index (BMI) [Ratio] 23.18 kg/m2 Kristy Parker MD Work Phone: [facility] 11-09-2024 10:32-0500 Body weight 67.13 kg Kristy Parker MD Work Phone: [facility] 11-07-2024 09:54-0500 Diastolic blood pressure 61 mm[Hg] Brock Groves MD Work Phone: [facility] 11-07-2024 09:54-0500 Systolic blood pressure 143 mm[Hg] Brock Groves MD Work Phone: [facility] 11-07-2024 09:51-0500 Body height 170.2 cm Brock Groves MD Work Phone: [facility] 11-07-2024 09:51-0500 Body mass index (BMI) [Ratio] 23.02 kg/m2 Brock Groves MD Work Phone: [facility] 11-07-2024 09:51-0500 Body temperature 97.39 [degF] Brock Groves MD Work Phone: [facility] 11-07-2024 09:51-0500 Body weight 66.68 kg Brock Groves MD Work Phone: [facility] 11-07-2024 09:51-0500 Heart rate 63 /min Brock Groves MD Work Phone: [facility] 11-07-2024 09:51-0500 SaO2% (BldA) [Mass fraction] 100 % Brock Groves MD Work Phone: [facility] 10-28-2024 11:06-0500 Diastolic blood pressure 51 mm[Hg] Nidia Garay MD Work Phone: [facility] 10-28-2024 11:06-0500 Heart rate 68 /min Nidia Garay MD Work Phone: [facility] 10-28-2024 11:06-0500 Respiratory rate 14 /min Nidia Garay MD Work Phone: [facility] 10-28-2024 11:06-0500 SaO2% (BldA) [Mass fraction] 94 % Nidia Garay MD Work Phone: [facility] 10-28-2024 11:06-0500 Systolic blood pressure 153 mm[Hg] Nidia Garay MD Work Phone: [facility] 10-28-2024 07:24-0500 Body temperature 97.59 [degF] Nidia Garay MD Work Phone: [facility] 10-28-2024 05:11-0500 Body mass index (BMI) [Ratio] 22.44 kg/m2 Nidia Garay MD Work Phone: [facility] 10-28-2024 05:11-0500 Body weight 65 kg Nidia Garay MD Work Phone: [facility] 10-27-2024 16:36-0500 Body height 170.2 cm Nidia Garay MD Work Phone: [facility] 10-27-2024 14:18-0500 SaO2% (BldA) [Mass fraction] 97.3 % Nidia Garay MD Work Phone: [facility] 10-18-2024 13:46-0500 Diastolic blood pressure 61 mm[Hg] Woo Grigsby MD Work Phone: [facility] 10-18-2024 13:46-0500 Heart rate 67 /min Woo Grigsby MD Work Phone: [facility] 10-18-2024 13:46-0500 SaO2% (BldA) [Mass fraction] 100 % Woo Grigsby MD Work Phone: [facility] 10-18-2024 13:46-0500 Systolic blood pressure 103 mm[Hg] Woo Grigsby MD Work Phone: [facility] 10-18-2024 13:27-0500 Body height 172.7 cm Woo Grigsby MD Work Phone: [facility] 10-18-2024 13:27-0500 Body mass index (BMI) [Ratio] 22.52 kg/m2 Woo Grigsby MD Work Phone: [facility] 10-18-2024 13:27-0500 Body weight 67.18 kg Woo Grigsby MD Work Phone: [facility] 08-29-2024 13:04-0400 Diastolic blood pressure 72 mm[Hg] Ayanna Albert DO Work Phone: [facility] 08-29-2024 13:04-0400 Systolic blood pressure 168 mm[Hg] Ayanna Young DO Work Phone: [facility] 08-29-2024 12:57-0400 Body height 172.7 cm Ayanna Albert DO Work Phone: [facility] 08-29-2024 12:57-0400 Body mass index (BMI) [Ratio] 22.72 kg/m2 Ayanna Albert DO Work Phone: [facility] 08-29-2024 12:57-0400 Body weight 67.77 kg Ayanna Albert DO Work Phone: [facility] 08-29-2024 12:57-0400 Heart rate 64 /min Ayanna Albert DO Work Phone: [facility] 07-21-2024 14:12-0400 Diastolic blood pressure 68 mm[Hg] Paty Ortega LAUNCH OPERATOR Work Phone: [facility] 07-21-2024 14:12-0400 Systolic blood pressure 166 mm[Hg] Paty Ortega LAUNCH OPERATOR Work Phone: [facility] 07-21-2024 13:38-0400 Body mass index (BMI) [Ratio] 22.44 kg/m2 Paty Ortega LAUNCH OPERATOR Work Phone: [facility] 07-21-2024 13:38-0400 Body weight 66.95 kg Paty Ortega LAUNCH OPERATOR Work Phone: [facility] 07-21-2024 13:38-0400 Heart rate 69 /min Paty Ortega LAUNCH OPERATOR Work Phone: [facility] 04-24-2024 10:09-0400 Diastolic blood pressure 70 mm[Hg] Woo Grigsby MD Work Phone: [facility] Comment on above: Manual 04-24-2024 10:09-0400 Systolic blood pressure 150 mm[Hg] Woo Day Work Phone: [facility] Comment on above: Manual 04-24-2024 09:44-0400 Body height 172.7 cm Woo Work Phone: [facility] 04-24-2024 09:44-0400 Body mass index (BMI) [Ratio] 22.43 kg/m2 Woo Day Work Phone: [facility] 04-24-2024 09:44-0400 Body weight 66.91 kg Woo Day Work Phone: [facility] 04-24-2024 09:44-0400 Heart rate 53 /min Woo Work Phone: [facility] 04-24-2024 09:44-0400 SaO2% (BldA) [Mass fraction] 96 % Work Phone: [facility] 02-24-2024 13:44-0400 Body height 172.7 cm Madie BERMAN DNP Work Phone: [facility] 02-24-2024 13:44-0400 Body mass index (BMI) [Ratio] 23.11 kg/m2 Madie BERMAN, DNP Work Phone: [facility] 02-24-2024 13:44-0400 Body weight 68.95 kg Madie BERMAN DNP Work Phone: [facility] 02-24-2024 13:44-0400 Diastolic blood pressure 68 mm[Hg] Madie BERMAN DNP Work Phone: [facility] 02-24-2024 13:44-0400 Heart rate 76 /min Madie BERMAN DNP Work Phone: [facility] 02-24-2024 13:44-0400 Systolic blood pressure 142 mm[Hg] Madie BERMAN DNP Work Phone: [facility] 02-18-2024 12:48-0400 Body mass index (BMI) [Ratio] 23.11 kg/m2 Paty Ortega LAUNCH OPERATOR Work Phone: [facility] 02-18-2024 12:48-0400 Body weight 68.95 kg Paty Ortega LAUNCH OPERATOR Work Phone: [facility] 02-18-2024 12:48-0400 Diastolic blood pressure 79 mm[Hg] Paty Ortega LAUNCH OPERATOR Work Phone: [facility] 02-18-2024 12:48-0400 Heart rate 67 /min Paty Ortega LAUNCH OPERATOR Work Phone: [facility] 02-18-2024 12:48-0400 Systolic blood pressure 131 mm[Hg] Paty Ortega LAUNCH OPERATOR Work Phone: [facility] 01-14-2024 11:02-0400 Body height 172.7 cm Aylin Lacy LAUNCH OPERATOR Work Phone: [facility] 01-14-2024 11:02-0400 Body mass index (BMI) [Ratio] 24.01 kg/m2 Aylin Lacy LAUNCH OPERATOR Work Phone: [facility] 01-14-2024 11:02-0400 Body weight 71.62 kg Aylin Lacy LAUNCH OPERATOR Work Phone: [facility] 01-14-2024 11:02-0400 Diastolic blood pressure 78 mm[Hg] Aylin Arintj LAUNCH OPERATOR Work Phone: [facility] 01-14-2024 11:02-0400 Heart rate 70 /min Aylin Lacy LAUNCH OPERATOR Work Phone: [facility] 01-14-2024 11:02-0400 SaO2% (BldA) [Mass fraction] 94 % Aylin Regino LAUNCH OPERATOR Work Phone: [facility] 01-14-2024 11:02-0400 Systolic blood pressure 139 mm[Hg] Aylin Lacy LAUNCH OPERATOR Work Phone: [facility] 12-01-2023 08:00-0500 Body temperature 97.9 [degF] Kathleen Story MD Work Phone: [facility] 12-01-2023 08:00-0500 Diastolic blood pressure 73 mm[Hg] Kathleen Story MD Work Phone: [facility] 12-01-2023 08:00-0500 Heart rate 91 /min Kathleen Story MD Work Phone: [facility] 12-01-2023 08:00-0500 Respiratory rate 18 /min Kathleen Story MD Work Phone: [facility] 12-01-2023 08:00-0500 SaO2% (BldA) [Mass fraction] 94 % Kathleen Story MD Work Phone: [facility] 12-01-2023 08:00-0500 Systolic blood pressure 134 mm[Hg] Kathleen Story MD Work Phone: [facility] 12-01-2023 06:00-0500 Body mass index (BMI) [Ratio] 23.96 kg/m2 Kathleen Story MD Work Phone: [facility] 12-01-2023 06:00-0500 Body weight 69.4 kg Kathleen Story MD Work Phone: [facility] 11-27-2023 04:06-0500 SaO2% (BldA) [Mass fraction] 96.0 % Kathleen Story MD Work Phone: [facility] 11-27-2023 03:00-0500 Body height 170.2 cm Kathleen Story MD Work Phone: [facility] 11-27-2023 01:39-0500 Diastolic blood pressure 79 mm[Hg] Ger Aguilera DO Work Phone: [facility] 11-27-2023 01:39-0500 Heart rate 77 /min Ger Aguilera DO Work Phone: [facility] 11-27-2023 01:39-0500 Respiratory rate 20 /min Ger Aguilera DO Work Phone: [facility] 11-27-2023 01:39-0500 SaO2% (BldA) [Mass fraction] 95 % Ger Aguilera DO Work Phone: [facility] 11-27-2023 01:39-0500 Systolic blood pressure 148 mm[Hg] Ger Aguilera DO Work Phone: [facility] 11-26-2023 21:22-0500 Body height 172.7 cm Ger Aguilera DO Work Phone: [facility] [facility] 11-26-2023 21:22-0500 Body mass index (BMI) [Ratio] 22.5 kg/m2 Ger Aguilera DO Work Phone: [facility] 11-26-2023 21:22-0500 Body temperature 97.11 [degF] Ger Aguilera DO Work Phone: [facility] 11-26-2023 21:22-0500 Body weight 67.13 kg Ger Aguilera DO Work Phone: [facility] 10-21-2023 08:54-0500 Body height 172.7 cm Woo Grigsby MD Work Phone: [facility] 10-21-2023 08:54-0500 Body mass index (BMI) [Ratio] 22.61 kg/m2 Woo Grigsby MD Work Phone: [facility] 10-21-2023 08:54-0500 Body weight 67.45 kg Woo Grigsby MD Work Phone: [facility] 10-21-2023 08:54-0500 Diastolic blood pressure 67 mm[Hg] Woo Grigsby MD Work Phone: [facility] 10-21-2023 08:54-0500 Heart rate 65 /min Woo Grigsby MD Work Phone: [facility] 10-21-2023 08:54-0500 SaO2% (BldA) [Mass fraction] 99 % Woo Grigsby MD Work Phone: [facility] 10-21-2023 08:54-0500 Systolic blood pressure 128 mm[Hg] Woo Grigsby MD Work Phone: [facility] 10-13-2023 11:55-0500 SaO2% (BldA) [Mass fraction] 92 % Praful Pineda MD Work Phone: [facility] 10-13-2023 10:39-0500 Heart rate 97 /min Praful Pineda MD Work Phone: [facility] 10-13-2023 09:35-0500 Body height 171.5 cm Praful Pineda MD Work Phone: [facility] 10-13-2023 09:35-0500 Body mass index (BMI) [Ratio] 24.38 kg/m2 Praful Pineda MD Work Phone: [facility] 10-13-2023 09:35-0500 Body weight 71.7 kg Praful Pineda MD Work Phone: [facility] 10-12-2023 20:45-0500 Body temperature 98.1 [degF] Praful Pineda MD Work Phone: [facility] 10-12-2023 20:45-0500 Diastolic blood pressure 85 mm[Hg] Praful Pineda MD Work Phone: [facility] 10-12-2023 20:45-0500 Respiratory rate 16 /min Praful Pineda MD Work Phone: [facility] 10-12-2023 20:45-0500 Systolic blood pressure 123 mm[Hg] Praful Pineda MD Work Phone: [facility] 10-11-2023 01:56-0500 Body temperature 37.0 Praful Pineda MD Work Phone: [facility] 10-11-2023 01:56-0500 SaO2% (BldA) [Mass fraction] 93 % Praful Pineda MD Work Phone: [facility] 10-08-2023 11:12-0500 Diastolic blood pressure 66 mm[Hg] Mary Yan MD Work Phone: [facility] 10-08-2023 11:12-0500 Heart rate 67 /min Mary Yan MD Work Phone: [facility] 10-08-2023 11:12-0500 Systolic blood pressure 199 mm[Hg] Mary Yan MD Work Phone: [facility] 10-08-2023 11:05-0500 Body mass index (BMI) [Ratio] 24.18 kg/m2 Mary Yan MD Work Phone: [facility] 10-08-2023 11:05-0500 Body weight 72.12 kg Mary Yan MD Work Phone: [facility] 08-25-2023 14:11-0400 Body weight 72.12 kg Ayanna Albert DO Work Phone: [facility] 08-25-2023 14:11-0400 Diastolic blood pressure 62 mm[Hg] Ayanna Young DO Work Phone: [facility] 08-25-2023 14:11-0400 Heart rate 62 /min Ayanna Young DO Work Phone: [facility] 08-25-2023 14:11-0400 Systolic blood pressure 144 mm[Hg] Ayanna Young DO Work Phone: [facility] 07-27-2023 14:48-0400 Diastolic blood pressure 78 mm[Hg] Nancy Mirza Work Phone: [facility] Work Phone: 07-27-2023 14:48-0400 Systolic blood pressure 152 mm[Hg] Nancy Mirza Work Phone: [facility] Work Phone: 07-27-2023 14:45-0400 Body height 172.72 cm Nancy Mirza Work Phone: [facility] Work Phone: 07-27-2023 14:45-0400 Body mass index (BMI) [Ratio] 24.05 kg/m2 AvilaSukhi Mirza Work Phone: [facility] Work Phone: 07-27-2023 14:45-0400 Body surface area Derived from formula 1.85 m2 AvilaSukhi Mirza Work Phone: [facility] Work Phone: 07-27-2023 14:45-0400 Body weight 71.76 kg AvilaSukhi Mirza Work Phone: [facility] Work Phone: 07-27-2023 14:45-0400 Diastolic blood pressure 88 mm[Hg] AvilaSukhi Mirza Work Phone: [facility] Work Phone: 07-27-2023 14:45-0400 Heart rate 70 /min AvilaSukhi Tabareszonia Work Phone: [facility] Work Phone: 07-27-2023 14:45-0400 SaO2% (BldA) [Mass fraction] 97 % AvilaSukhi Mirza Work Phone: [facility] Work Phone: 07-27-2023 14:45-0400 Systolic blood pressure 160 mm[Hg] Nancy Isbell Koreyeleazar Work Phone: [facility] Work Phone: 02-19-2023 13:02-0400 Body mass index (BMI) [Ratio] 24.33 kg/m2 Paty Ortega LAUNCH OPERATOR Work Phone: [facility] 02-19-2023 13:02-0400 Body weight 72.58 kg Paty Ortega LAUNCH OPERATOR Work Phone: [facility] 02-19-2023 13:02-0400 Diastolic blood pressure 83 mm[Hg] Paty Ortega LAUNCH OPERATOR Work Phone: [facility] 02-19-2023 13:02-0400 Heart rate 73 /min Paty Oretga LAUNCH OPERATOR Work Phone: [facility] 02-19-2023 13:02-0400 Systolic blood pressure 116 mm[Hg] Paty Ortega LAUNCH OPERATOR Work Phone: [facility] 10-19-2022 10:01-0500 Diastolic blood pressure 69 mm[Hg] Paty Ortega LAUNCH OPERATOR Work Phone: [facility] 10-19-2022 10:01-0500 Heart rate 89 /min Paty Ortega LAUNCH OPERATOR Work Phone: [facility] 10-19-2022 10:01-0500 Systolic blood pressure 149 mm[Hg] Paty Ortega LAUNCH OPERATOR Work Phone: [facility] 10-19-2022 09:56-0500 Body mass index (BMI) [Ratio] 24.04 kg/m2 Paty Ortega LAUNCH OPERATOR Work Phone: [facility] 10-19-2022 09:56-0500 Body weight 71.71 kg Paty Ortega LAUNCH OPERATOR Work Phone: [facility] 06-19-2022 10:04-0400 Diastolic blood pressure 90 mm[Hg] Paty Ortega LAUNCH OPERATOR Work Phone: [facility] 06-19-2022 10:04-0400 Systolic blood pressure 184 mm[Hg] Paty Ortega LAUNCH OPERATOR Work Phone: [facility] 06-19-2022 09:40-0400 Heart rate 72 /min Paty Ortega LAUNCH OPERATOR Work Phone: [facility] 06-19-2022 09:36-0400 Body height 172.7 cm Paty Ortega LAUNCH OPERATOR Work Phone: [facility] 06-19-2022 09:36-0400 Body mass index (BMI) [Ratio] 24.48 kg/m2 Paty Ortega LAUNCH OPERATOR Work Phone: [facility] 06-19-2022 09:36-0400 Body weight 73.03 kg Paty Ortega LAUNCH OPERATOR Work Phone: [facility] 02-13-2022 11:13-0400 Diastolic blood pressure 74 mm[Hg] Mary Yan MD Work Phone: [facility] 02-13-2022 11:13-0400 Systolic blood pressure 138 mm[Hg] Mary Yan MD Work Phone: [facility] 02-13-2022 11:09-0400 Body height 172.7 cm Mary Yan MD Work Phone: [facility] 02-13-2022 11:09-0400 Body mass index (BMI) [Ratio] 25.09 kg/m2 Mary Yan MD Work Phone: [facility] 02-13-2022 11:09-0400 Body weight 74.84 kg Mary Yan MD Work Phone: [facility] 02-13-2022 11:09-0400 Heart rate 71 /min Mary Yan MD Work Phone: [facility] 10-13-2021 14:07-0500 Diastolic blood pressure 72 mm[Hg] Paty Ortega LAUNCH OPERATOR Work Phone: [facility] 10-13-2021 14:07-0500 Heart rate 74 /min Paty Ortega LAUNCH OPERATOR Work Phone: [facility] 10-13-2021 14:07-0500 Systolic blood pressure 163 mm[Hg] Paty Ortega LAUNCH OPERATOR Work Phone: [facility] 10-13-2021 13:59-0500 Body mass index (BMI) [Ratio] 24.89 kg/m2 Paty Ortega LAUNCH OPERATOR Work Phone: [facility] 10-13-2021 13:59-0500 Body weight 74.25 kg Paty Ortega LAUNCH OPERATOR Work Phone: [facility] 06-20-2021 14:38-0400 Diastolic blood pressure 68 mm[Hg] Paty Ortega LAUNCH OPERATOR Work Phone: [facility] 06-20-2021 14:38-0400 Heart rate 70 /min Paty Ortega LAUNCH OPERATOR Work Phone: [facility] 06-20-2021 14:38-0400 Systolic blood pressure 163 mm[Hg] Paty Ortega LAUNCH OPERATOR Work Phone: [facility] 06-20-2021 14:33-0400 Body height 172.7 cm Paty Ortega LAUNCH OPERATOR Work Phone: [facility] 06-20-2021 14:33-0400 Body mass index (BMI) [Ratio] 25.32 kg/m2 Paty Ortega LAUNCH OPERATOR Work Phone: [facility] 06-20-2021 14:33-0400 Body weight 75.52 kg Paty Ortega LAUNCH OPERATOR Work Phone: [facility] 02-18-2021 15:24-0400 Body height 172.7 cm Mary Yan MD Work Phone: [facility] 02-18-2021 15:24-0400 Body mass index (BMI) [Ratio] 25.54 kg/m2 Mary Yan MD Work Phone: [facility] 02-18-2021 15:24-0400 Body weight 76.2 kg Mary Yan MD Work Phone: [facility] 02-18-2021 15:24-0400 Diastolic blood pressure 70 mm[Hg] Mary Yan MD Work Phone: [facility] 02-18-2021 15:24-0400 Heart rate 76 /min Mary Yan MD Work Phone: [facility] 02-18-2021 15:24-0400 Systolic blood pressure 194 mm[Hg] Mary Yan MD Work Phone: [facility] 10-18-2020 13:36-0500 BMI (Body Mass Index) 25.54 kg/m2 [facility] 10-18-2020 13:36-0500 Body weight 76.2 kg [facility] 10-18-2020 13:36-0500 BP Diastolic 69 mm[Hg] [facility] 10-18-2020 13:36-0500 BP Systolic 163 mm[Hg] [facility] 10-18-2020 13:36-0500 Height 172.7 cm [facility] 10-18-2020 13:36-0500 Pulse (Heart Rate) 72 /min [facility] 06-18-2020 10:01-0400 BMI (Body Mass Index) 25.39 kg/m2 [facility] 06-18-2020 10:01-0400 Body weight 75.75 kg [facility] 06-18-2020 10:01-0400 BP Diastolic 71 mm[Hg] [facility] 06-18-2020 10:01-0400 BP Systolic 172 mm[Hg] [facility] 06-18-2020 10:01-0400 Height 172.7 cm [facility] 06-18-2020 10:01-0400 Pulse (Heart Rate) 72 /min [facility] 11-16-2019 10:40-0500 BMI (Body Mass Index) 25.09 kg/m2 [facility] 11-16-2019 10:40-0500 Body weight 74.84 kg [facility] 11-16-2019 10:40-0500 BP Diastolic 68 mm[Hg] [facility] 11-16-2019 10:40-0500 BP Systolic 178 mm[Hg] [facility] 11-16-2019 10:40-0500 Height 172.7 cm [facility] 11-16-2019 10:40-0500 Pulse (Heart Rate) 75 /min [facility] 07-17-2019 10:48-0400 BMI (Body Mass Index) 25.09 kg/m2 Keeley Patton [facility] 07-17-2019 10:48-0400 Body weight 74.84 kg Keeley Patton [facility] 07-17-2019 10:48-0400 BP Diastolic 69 mm[Hg] Keeley Patton [facility] 07-17-2019 10:48-0400 BP Systolic 152 mm[Hg] Keeley Patton [facility] 07-17-2019 10:48-0400 Height 172.7 cm Keeley Patton [facility] 07-17-2019 10:48-0400 Pulse (Heart Rate) 71 /min Keeley Patton [facility] 03-13-2019 12:07-0400 BMI (Body Mass Index) 25.24 kg/m2 Mary Yan [facility] 03-13-2019 12:07-0400 Body weight 75.3 kg Mary Yan [facility] 03-13-2019 12:07-0400 BP Diastolic 67 mm[Hg] Mary Yan [facility] 03-13-2019 12:07-0400 BP Systolic 160 mm[Hg] Mary Yan [facility] 03-13-2019 12:07-0400 Height 172.7 cm Mary Yan [facility] 03-13-2019 12:07-0400 Pulse (Heart Rate) 72 /min Mary Yan [facility] 11-11-2018 11:08-0500 BMI (Body Mass Index) 26 kg/m2 Keeley Patton [facility] 11-11-2018 11:08-0500 BP Diastolic 74 mm[Hg] Keeley Patton [facility] 11-11-2018 11:08-0500 BP Systolic 172 mm[Hg] Keeley Patton [facility] 11-11-2018 11:08-0500 Height 172.7 cm Keeley Patton [facility] 11-11-2018 11:08-0500 Pulse (Heart Rate) 71 /min Keeley Patton [facility] 11-11-2018 11:08-0500 Weight 77.56 kg Keeley Patton [facility] 07-05-2018 10:05-0400 BMI (Body Mass Index) 25.48 kg/m2 Paty Ortega [facility] 07-05-2018 10:05-0400 BP Diastolic 58 mm[Hg] Paty Ortega [facility] 07-05-2018 10:05-0400 BP Systolic 130 mm[Hg] Paty Ortega [facility] 07-05-2018 10:05-0400 Height 172.7 cm Paty [facility] 07-05-2018 10:05-0400 Pulse (Heart Rate) 84 /min Paty Ortega [facility] 07-05-2018 10:05-0400 Weight 76.02 kg Paty [facility] 02-28-2018 10:14-0400 BMI (Body Mass Index) 26.15 kg/m2 [facility] 02-28-2018 10:14-0400 BP Diastolic 64 mm[Hg] [facility] 02-28-2018 10:14-0400 BP Systolic 154 mm[Hg] [facility] 02-28-2018 10:14-0400 Height 172.[address] [facility] 02-28-2018 10:14-0400 Pulse (Heart Rate) 76 /min [facility] 02-28-2018 10:14-0400 Weight 78.[address] [facility] 10-29-2017 10:08-0500 BMI (Body Mass Index) 25.24 kg/m2 Mary Yan [facility] Work Phone: 10-29-2017 10:08-0500 BP Diastolic 64 mm[Hg] Mary Yan [facility] Work Phone: 10-29-2017 10:08-0500 BP Systolic 142 mm[Hg] Mary Yan [facility] Work Phone: 10-29-2017 10:08-0500 Height 172.7 cm Mary Yan [facility] Work Phone: 10-29-2017 10:08-0500 Pulse (Heart Rate) 72 /min Mary Yan [facility] Work Phone: 10-29-2017 10:08-0500 Weight 75.3 kg Mary Yan [facility] Work Phone: 06-17-2017 11:04-0400 BMI (Body Mass Index) 24.78 kg/m2 Ya Parker [facility] Work Phone: 06-17-2017 11:04-0400 BP Diastolic 62 mm[Hg] Ya Parker [facility] Work Phone: 06-17-2017 11:04-0400 BP Systolic 148 mm[Hg] Ya Parker [facility] Work Phone: 06-17-2017 11:04-0400 Height 172.7 cm Ya Parker [facility] Work Phone: 06-17-2017 11:04-0400 Pulse (Heart Rate) 64 /min Ya Parker [facility] Work Phone: 06-17-2017 11:04-0400 Weight 73.94 kg Ya Parker [facility] Work Phone: Encounters Encounter Date Encounter Type Care Provider Facility Start: 03-29-2025 End: 03-29-2025 ambulatory WOO GRIGSBY [facility] Start: 03-27-2025 End: 03-27-2025 Follow-up encounter Woo Grigsby MD Work Phone: [facility] Comment on above: Basic metabolic pane l Start: 03-12-2025 End: 03-12-2025 Office outpatient visit 25 minutes Paty Ortega [facility] Work Phone: [facility] [place] Comment on above: Type 1 diabetes suzie itus with diabetic neuropathy (HCC) (Primary Dx); Pure hypercholesterolemia; Essential hypertension Start: 03-12-2025 End: 03-12-2025 ambulatory PATY ORTEGA [facility] Start: 03-09-2025 End: 03-09-2025 Office outpatient visit 25 minutes Woo Grigsby MD Work Phone: [facility] Comment on above: 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 (Primary Dx); NSTEMI (non-ST elevated myocardial infarction) (HCC); Hospital discharge follow-up Start: 03-09-2025 End: 03-09-2025 ambulatory RYLEY JETER [facility] Start: 02-28-2025 End: 03-05-2025 Evaluation and management of inpatient [facility] Start: 02-26-2025 End: 02-26-2025 Office outpatient visit 15 minutes Ayanna M Young Work Phone: [facility] Comment on above: 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); Essential hypertension; Pure hypercholesterolemia; Type 1 diabetes mellitus with diabetic neuropathy Start: 02-26-2025 End: 02-26-2025 ambulatory AYANNACAM ALBERT [facility]ulatory Start: 02-16-2025 End: 02-16-2025 Refill Paty Ortega LAUNCH OPERATOR Work Phone: [facility] Comment on above: Type 1 diabetes suzie itus with diabetic neuropathy (HCC) (Primary Dx) Start: 02-14-2025 End: 02-14-2025 Documentation procedure Ej Guidry MA [facility] Comment on above: Letter refaxed Start: 02-12-2025 End: 02-13-2025 Orders Only Paty Ortega LAUNCH OPERATOR Work Phone: [facility] Start: 02-09-2025 Encounter for other preprocedural examination Kerwin Tamayo [facility] Start: 02-06-2025 End: 02-06-2025 ambulatory Ryley Jeter MD Work Phone: [facility] Work Phone: Start: 02-06-2025 End: 02-06-[address] Kerwin Tamayo MD -Laboratory, [facility] Start: 02-06-2025 End: 02-06-2025 ambulatory Ryley Jeter Facility:[facility] Start: 01-01-2025 End: 01-01-2025 Refill Paty Ortega LAUNCH OPERATOR Work Phone: [facility] Comment on above: Type 1 diabetes suzie itus with diabetic neuropathy (HCC) (Primary Dx) Start: 12-08-2024 End: 12-08-2024 Refill Paty Ortega LAUNCH OPERATOR Work Phone: [facility] Comment on above: Type 1 diabetes suzie itus with diabetic neuropathy (HCC) Start: 11-20-2024 End: 11-20-2024 Refsander Ortega LAUNCH OPERATOR Work Phone: [facility] Start: 11-14-2024 End: 11-14-2024 Office outpatient visit 25 minutes Woo Grigsby MD Work Phone: [facility] Comment on above: 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 (Primary Dx); Claudication in peripheral vascular disease; Bilateral carotid artery stenosis Start: 11-14-2024 End: 11-14-2024 ambulatory [facility] Start: 11-13-2024 End: 11-13-2024 Office outpatient visit 25 minutes Paty Ortega LAUNCH OPERATOR Work Phone: [facility] [place] Comment on above: Type 1 diabetes suzie itus with diabetic neuropathy (HCC) (Primary Dx); Pure hypercholesterolemia; Essential hypertension Start: 11-13-2024 End: 11-13-2024 ambulatory [facility] Start: 11-09-2024 End: 11-09-2024 Office outpatient new 60 minutes Sandi Phan PA-C Work Phone: [facility] Comment on above: Bilateral carotid ar radha stenosis Start: 11-09-2024 End: 11-09-2024 ambulatory SANDI PHAN [facility] Start: 11-07-2024 End: 11-07-2024 Office outpatient new 45 minutes Brock Groves MD Work Phone: [facility] Comment on above: 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 (Primary Dx) Start: 11-07-2024 End: 11-11-2024 Orders Only Sandi Phan PA-C Work Phone: [facility] Comment on above: Bilateral carotid ar radha stenosis (Primary Dx) Start: 11-06-2024 End: 11-07-2024 Refill Paty Ortega LAUNCH OPERATOR Work Phone: [facility] Comment on above: Type 1 diabetes suzie itus with diabetic neuropathy (HCC) (Primary Dx) Start: 10-27-2024 End: 10-28-2024 ambulatory CINTIA CLIFFORD [facility] Start: 10-27-2024 End: 10-28-2024 Emergency department patient visit Elías Rodriguez MD Work Phone: [facility] Intermediate Care Unit Start: 10-23-2024 End: 10-23-2024 Chart abstracting Ej Guidry MA [facility] Comment on above: Medication Refill Start: 10-18-2024 End: 10-18-2024 Office outpatient visit 25 minutes Woo Grigsby MD Work Phone: [facility] Comment on above: Claudication in sheyla pheral vascular disease (HCC) (Primary Dx); Encounter for examination of blood pressure with abnormal findings; 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; Congestive heart failure, unspecified HF chronicity, unspecified heart failure type (HCC); Hypertensive emergency Start: 10-18-2024 End: 10-18-2024 Patient encounter status Woo Grigsby MD Work Phone: [facility] Start: 10-18-2024 End: 10-18-2024 [facility] Start: 10-18-2024 End: 10-18-2024 Encounter for examination of blood pressure with abnormal findings WOO GRIGSBY [facility] Start: 10-06-2024 End: 10-06-2024 Refill Luisa Easley RN [facility] Start: 10-04-2024 ambulatory RYLEY JETER [facility] Ambulatory Start: 09-28-2024 ambulatory RYLEY JETER [facility] Start: 09-26-2024 End: 09-26-2024 Refill Paty Ortega CNP Work Phone: [facility] Comment on above: Type 1 diabetes suzie itus with diabetic neuropathy (HCC) (Primary Dx) Start: 09-21-2024 End: 09-21-2024 ambulatory Chalon Steffany Facility:[facility] Start: 09-13-2024 ambulatory Malika Alaniz [facility] Start: 09-12-2024 ambulatory [facility] Start: 09-12-2024 End: 09-14-2024 Evaluation and management of inpatient Chalcam Steffany Facility:[facility] Start: 09-12-2024 ambulatory Young Koroma [facility] Start: 08-29-2024 End: 08-29-2024 Office outpatient visit 15 minutes Ayanna Albert DO Work Phone: [facility] Comment on above: 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); Essential hypertension; Type 1 diabetes mellitus with diabetic neuropathy Start: 08-29-2024 End: 08-29-2024 ambulatory [facility] Ambulatory Start: 07-21-2024 End: 07-21-2024 Office outpatient visit 25 minutes aPty Ortega CNP Work Phone: [facility] [place] Comment on above: Type 1 diabetes suzie itus with diabetic neuropathy (HCC) (Primary Dx); Pure hypercholesterolemia; Essential hypertension Start: 07-21-2024 End: 07-21-2024 ambulatory PATY ORTEGA [facility] Start: 07-07-2024 End: 07-07-2024 ambulatory NO ASSIGNED PCP GENERIC PROVIDER [facility] Start: 05-17-2024 End: 05-17-2024 ambulatory Ryley Jeter Facility:[facility] Start: 04-24-2024 End: 04-24-2024 Office outpatient visit 25 minutes Woo Grigsby MD Work Phone: [facility] Comment on above: 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 (Primary Dx); Primary hypertension; Dyslipidemia Start: 04-24-2024 End: 04-24-2024 ambulatory RYLEY JETER [facility] Start: 04-06-2024 End: 04-06-2024 ambulatory Chalcam Steffany Facility:[facility] Start: 03-28-2024 Refill Ej Guidry MA [facility] Comment on above: Medication Refill Start: 03-22-2024 End: 03-22-2024 ambulatory Chalcam Steffany Facility:[facility] Start: 03-06-2024 Refill Paty Ortega CNP Work Phone: [facility] [place] Comment on above: Type 1 diabetes suzie itus with diabetic neuropathy (HCC) Start: 02-24-2024 End: 02-24-2024 Office outpatient visit 15 minutes Madie BERMAN, [facility] Work Phone: [facility] Office Building Comment on above: 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); Acute on chronic systolic (congestive) heart failure (Multi); Type 1 diabetes mellitus with diabetic neuropathy (Multi) Start: 02-18-2024 End: 02-18-2024 Office outpatient visit 25 minutes Paty Ortega LAUNCH OPERATOR Work Phone: [facility] [place] Comment on above: Type 1 diabetes suzie itus with diabetic neuropathy (HCC) (Primary Dx); Pure hypercholesterolemia; Essential hypertension Start: 02-07-2024 End: 02-07-2024 ambulatory NO ASSIGNED PCP GENERIC PROVIDER [facility] Start: 01-17-2024 Refill Ej Guidry MA [facility] Comment on above: Medication Refill Start: 01-14-2024 End: 01-14-2024 Office outpatient visit 15 minutes Aylin Lacy LAUNCH OPERATOR Work Phone: [facility] Comment on above: Cardiovascular stres s test abnormal (Primary Dx); Dyslipidemia; 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; Primary hypertension Start: 12-29-2023 Refill Ej Guidry MA [facility] Comment on above: Medication Refill Start: 12-15-2023 End: 12-15-2023 ambulatory [facility] Work Phone: Start: 12-15-2023 End: 12-15-2023 Patient encounter procedure [facility] [place] Work Phone: Start: 11-29-2023 End: 11-29-2023 Subsequent hospital visit by physician Jovan Paul Ecg Resource [facility] Comment on above: Arrived Start: 11-27-2023 End: 12-01-2023 Evaluation and management of inpatient Generic [facility] Work Phone: [facility] Start: 11-26-2023 End: 11-27-2023 Emergency department patient visit Ger Aguilera DO Work Phone: [facility] Emergency Medicine Comment on above: NSTEMI (non-ST eleva chinyere myocardial infarction) ([facility]) (Primary Dx); MADONNA (acute kidney injury) ([facility]); Acute combined systolic and diastolic congestive heart failure ([facility]); Type 1 diabetes mellitus with other specified complication ([facility]) Start: 11-25-2023 End: 11-25-2023 [facility] Work Phone: Start: 11-25-2023 End: 11-25-2023 Patient encounter procedure [facility] Work Phone: Start: 11-17-2023 End: 11-17-2023 [facility] Work Phone: Start: 11-17-2023 End: 11-17-2023 Patient encounter procedure [facility] Work Phone: Start: 11-02-2023 Orders Only Mary Ramirez MD Work Phone: [facility] Start: 10-22-2023 End: 10-22-2023 Patient encounter procedure [facility] Start: 10-21-2023 End: 10-21-2023 Office outpatient new 45 minutes Mary Yan MD Work Phone: [facility] Comment on above: 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 (Primary Dx); Dyslipidemia; Congestive heart failure, unspecified HF chronicity, unspecified heart failure type (HCC) Start: 10-11-2023 End: 10-11-2023 Subsequent hospital visit by physician Jovan Paul Ecg [facility] Start: 10-11-2023 Critical care ill/in jured patient init 30-74 min Aury Rouse DO Work Phone: [facility] Work Phone: Start: 10-11-2023 End: 10-13-2023 Evaluation and management of inpatient Praful Pineda MD Work Phone: [facility] Surgical Intensive Care Comment on above: COVID-19 (Primary Dx ); Acute respiratory failure with hypoxia (CMS/HCC); Acute congestive heart failure, unspecified heart failure type (CMS/HCC); Pneumonia of both lungs due to infectious organism, unspecified part of lung; Abnormal electrocardiogram (ECG) (EKG); Acute on chronic systolic (congestive) heart failure (CMS/HCC) Start: 10-08-2023 End: 10-08-2023 Office outpatient visit 25 minutes Mary Yan MD Work Phone: [facility] [place] Comment on above: 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 Ayanna Albert Facility:[id number] Start: 07-30-2023 Refill Paty Ortega CNP Work Phone: [facility] [place] Start: 07-29-2023 Patient encounter procedure [facility]za [facility] Work Phone: Start: 07-27-[address] Ayanna Albert Facility:[id number] Start: 02-19-2023 End: 02-19-2023 Office outpatient visit 25 minutes Paty Ortega CNP Work Phone: [facility] [place] Comment on above: Type 1 diabetes suzie itus with diabetic neuropathy (HCC) Start: 01-25-2023 Patient encounter procedure Juwan Mirza Work Phone: [facility] [place] Work Phone: Start: 01-25-[address] Nancy Mirza Facility:[id number] Start: 01-18-2023 Patient encounter procedure Da jovani Mirza Work Phone: [facility] [place] Work Phone: Start: 01-18-[address] Nancy Mirza Facility:[id number] Start: 01-15-2023 Patient encounter procedure Da jovani Mirza Work Phone: [facility] [place] Work Phone: Start: 01-15-2023 [email or web address], Provider : Chaya Chan, Status: Pen, Time: 10:00 AM Nancy Mirza Work Phone: [facility] [place] Work Phone: Start: 01-15-[address] Nancy Mirza Facility:[id number] Start: 01-13-2023 Patient encounter procedure Da jovani Mirza Work Phone: [facility] [place] Work Phone: Start: 01-13-[address] Nancy Mirza Facility:[id number] Start: 01-08-2023 [email or web address], Provider : Chaya Chan, Status: Pen, Time: 10:00 AM Nancy Mirza Work Phone: [facility] [place] Work Phone: Start: 01-08-[address] Nancy Mirza Facility:[id number] Start: 01-06-[address] Nancy Mirza Facility:[id number] Start: 01-06-2023 Patient encounter procedure Da jovani Mirza Work Phone: [facility] [place] Work Phone: Start: 01-01-[address] Nancy Mirza Facility:[id number] Start: 01-01-2023 Patient encounter procedure Juwan Mirza Work Phone: [facility] [place] Work Phone: Start: 12-31-2022 Refill Paty Ortega LAUNCH OPERATOR Work Phone: [facility] Comment on above: Type 1 diabetes suzie itus with diabetic neuropathy (HCC) (Primary Dx) Start: 12-30-[address] Nancy Mirza Facility:[id number] Start: 12-25-[address] Nancy Mirza Facility:[id number] Start: 12-25-2022 Patient encounter procedure Juwan Mirza Work Phone: [facility] [place] Work Phone: Start: 12-21-2022 Patient encounter procedure Da jovani Mirza Work Phone: [facility] [place] Work Phone: Start: 12-21-[address] Nancy Mirza Facility:[id number] Start: 10-19-2022 End: 10-19-2022 Office outpatient visit 25 minutes Paty Ortega LAUNCH OPERATOR Work Phone: [facility] [place] Comment on above: Type 1 diabetes suzie itus with diabetic neuropathy (HCC) (Primary Dx); Essential hypertension; Pure hypercholesterolemia; Bilateral carotid artery stenosis; Prostate cancer screening Start: 06-19-2022 End: 06-19-2022 Office outpatient visit 25 minutes Paty Ortega CNP Work Phone: [facility] [place] Comment on above: Type 1 diabetes suzie itus with diabetic neuropathy (HCC) (Primary Dx); Essential hypertension; Elevated PSA Start: 02-13-2022 End: 02-13-2022 Office outpatient visit 25 minutes Mary Yan MD Work Phone: [facility] [place] Comment on above: Type 1 diabetes suzie itus with diabetic neuropathy (HCC) (Primary Dx); 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); Essential hypertension; Bilateral carotid artery stenosis; Prostate cancer screening Start: 10-13-2021 End: 10-13-2021 Office outpatient visit 25 minutes Paty Ortega CNP Work Phone: [facility] [place] Comment on above: Type 1 diabetes suzie itus with diabetic neuropathy (HCC) (Primary Dx); Essential hypertension; Pure hypercholesterolemia Start: 10-08-2021 Refill Paty Ortega CNP Work Phone: [facility] Start: 06-20-2021 End: 06-20-2021 Office outpatient visit 25 minutes Paty Ortega CNP Work Phone: [facility] [place] Comment on above: Type 1 diabetes suzie itus with diabetic polyneuropathy (HCC) (Primary Dx); Essential hypertension; Pure hypercholesterolemia Start: 02-26-2021 End: 02-26-2021 Subsequent hospital visit by physician Mary Yan MD Work Phone: [facility] Comment on above: Arrived Start: 02-18-2021 End: 02-18-2021 Office outpatient visit 25 minutes Mary Yan MD Work Phone: [facility] Comment on above: Type 1 diabetes suzie itus with diabetic polyneuropathy (HCC) (Primary Dx); Bilateral carotid artery stenosis; Essential hypertension; 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) Start: 02-18-2021 End: 02-18-2021 Refill Mary Yan MD Work Phone: [facility] Start: 11-22-2020 End: 11-22-2020 Orders Only Ya Nicolas Work Phone: [facility] Start: 10-18-2020 End: 10-18-2020 Office outpatient visit 25 minutes Paty Ortega Work Phone: [facility] Comment on above: Type 1 diabetes suzie itus with diabetic polyneuropathy (HCC) (Primary Dx); 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); Essential hypertension; Pure hypercholesterolemia Start: 06-18-2020 End: 06-18-2020 Office outpatient visit 25 minutes Paty Ortega Work Phone: [facility] Comment on above: Type 1 diabetes suzie itus with diabetic polyneuropathy (HCC) (Primary Dx); 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); Essential hypertension; Pure hypercholesterolemia Start: 11-16-2019 End: 11-16-2019 Office outpatient visit 25 minutes Paty Ortega Work Phone: [facility] Comment on above: Type I diabetes suzie itus with neurological manifestations, uncontrolled (HCC) (Primary Dx); Type 1 diabetes mellitus with diabetic polyneuropathy (HCC); Pure hypercholesterolemia Start: 07-17-2019 End: 07-17-2019 Office outpatient visit 25 minutes Keeley Patton Work Phone: [facility] Comment on above: Type 1 diabetes suzie itus with diabetic polyneuropathy (HCC) (Primary Dx); Essential hypertension; Pure hypercholesterolemia Start: 03-13-2019 End: 03-13-2019 Office outpatient visit 25 minutes Mary Yan Work Phone: [facility] Comment on above: 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) (Primary Dx); Pure hypercholesterolemia; Essential hypertension; 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); Prostate cancer screening Start: 11-11-2018 End: 11-11-2018 Office outpatient visit 15 minutes Keeley Patton Work Phone: [facility] Comment on above: Type 1 diabetes suzie itus with diabetic neuropathy (HCC) (Primary Dx); Essential hypertension Start: 07-05-2018 End: 07-05-2018 Office outpatient visit 25 minutes Paty Ortega Work Phone: [facility] Comment on above: Type 1 diabetes suzie itus with diabetic neuropathy (HCC) (Primary Dx); Essential hypertension; Pure hypercholesterolemia Start: 02-28-2018 End: 02-28-2018 Office/outpatient visit, [facility], level 3 Alexandra Givens Work Phone: [facility] Start: 02-09-2018 Ambulatory Nancy Mirza Facilit y:[employer] Start: 02-09-2018 End: 02-09-2018 Ambulatory Nancy Mirza Work Phone: [facility] Start: 10-29-2017 Office/outpatient vi sit, est, level 4 Marymarquise Yan Work Phone: [facility] Start: 06-17-2017 End: 06-17-2017 Office outpatient visit 25 minutes Ya Parker Work Phone: [facility] Comment on above: Type 1 diabetes suzie itus with diabetic neuropathy (HCC) (Primary Dx);Essential hypertension;Pure hypercholesterolemia Procedures Date Procedure Procedure Detail Performing Clinician Start: 02-12-2025 Comprehensive metabo lic panel Paty Ortega LAUNCH OPERATOR Work Phone: Start: 02-12-2025 Lipid panel Paty Ortega LAUNCH OPERATOR Work Phone: Start: 02-12-2025 Lipid 1996 panel - S laurence or Plasma Ayanna Albert DO Work Phone: Start: 02-12-2025 Thyrotropin [Units/v olume] in Serum or Plasma Ayanna Albert DO Work Phone: Start: 11-14-2024 Follow-up visit Follow-up WOO GRIGSBY Start: 10-28-2024 Glucose measurement Laura Clifford MD Work Phone: Start: 10-28-2024 Glucose measurement Gen malika [facility] Work Phone: Start: 10-28-2024 End: 10-28-2024 Glucose measurement Generic [facility] Work Phone: Start: 10-28-2024 Glucose measurement Gen malika [facility] Work Phone: Start: 10-28-2024 End: 10-28-2024 Glucose measurement Generic [facility] Work Phone: Start: 10-28-2024 Glucose measurement Gen malika [facility] Work Phone: Start: 10-28-2024 End: 10-28-2024 Basic metabolic panel calcium total Cintia Clifford MD Work Phone: Start: 10-28-2024 End: 10-28-2024 Glucose measurement Generic [facility] Work Phone: Start: 10-28-2024 End: 10-28-2024 Glucose measurement Generic [facility] Work Phone: Start: 10-27-2024 End: 10-28-2024 Glucose measurement Generic [facility] Work Phone: Start: 10-27-2024 Basic metabolic pane l calcium total Cintia Clifford MD Work Phone: Start: 10-27-2024 [facility] Work Phone: Start: 10-27-2024 Comprehensive metabo lic panel Cintia Clifford MD Work Phone: Start: 10-27-2024 End: 10-27-2024 Glucose measurement Generic [facility] Work Phone: Start: 10-27-2024 End: 10-27-2024 Glucose measurement Cintia Clifford MD Work Phone: Start: 10-27-2024 End: 10-27-2024 Assay of lactate Cintia Clifford MD Work Phone: Start: 10-27-2024 Glucose measurement Jose Antonio Rodriguez MD Work Phone: Start: 10-27-2024 Gases blood ph direc t nikkie xcpt pulse oximitry Elías Rodriguez MD Work Phone: Start: 10-27-2024 Echo tthrc r-t 2d w/wom-mode compl spec&colr d Zoila Salazar PA-C Work Phone: Start: 10-27-2024 Potassium serum plasma/whole blood Elías Rodriguez MD Work Phone: Start: 10-27-2024 Ct thorax w/o contra st material Zoila Salazar PA-C Work Phone: Start: 10-27-2024 Radiologic exam ches t 2 views Zoila Mckenna Salazar PA-C Work Phone: Start: 10-27-2024 Urnls dip stick/tabl et reagent auto microscopy Zoila Mckenna MICHELLEC Work Phone: Start: 10-27-2024 Blood group typing Jetha christopher Rodriguez MD Work Phone: Start: 10-27-2024 Non-invasive physiol ogic study extremity 3 levls Zoila Salazar PA-C Work Phone: Start: 10-27-2024 End: 10-27-2024 Dup-scan xtr veins unilateral/limited study Zoila Mckenna Salazar PA-C Work Phone: Start: 10-27-2024 Duplex scan extracra nial art compl bi study Zoila Mckenna Salazar PA-C Work Phone: Start: 10-27-2024 Glucose measurement Jose Antonio Rodriguez MD Work Phone: Start: 10-27-2024 Blood typing serologic abo Zoila Mckenna Salazar PA-C Work Phone: Start: 10-27-2024 End: 10-27-2024 Comprehensive metabolic panel Zoila Salazar PA-C Work Phone: Start: 10-27-2024 Cath plmt l hrt & ar ts w/njx & angio img s&i Woo Grigsby MD Work Phone: Start: 10-27-2024 Glucose measurement Jose Antonio Rodriguez MD Work Phone: Start: 07-07-2024 Thyrotropin [Units/v olume] in Serum or Plasma Ayanna Young DO Work Phone: Start: 02-07-2024 ALBUMIN, URINE RANDOM N O GENERIC PROVIDER Start: 02-07-2024 Comprehensive metabo lic 2000 panel - Serum or Plasma NO GENERIC PROVIDER Start: 12-01-2023 End: 12-01-2023 Glucose measurement Jose delgado MD Work Phone: Start: 12-01-2023 End: 12-01-2023 Glucose measurement Generic [facility] Work Phone: Start: 12-01-2023 Basic metabolic pane l calcium total Norma Geiger LAUNCH OPERATOR Work Phone: Start: 11-30-2023 Glucose measurement Gen [facility] Work Phone: Start: 11-30-2023 Glucose measurement Gen [facility] Work Phone: Start: 11-30-2023 Echo tthrc r-t 2d w/wom-mode compl spec&colr d Norma Geiger [facility] Work Phone: Start: 11-30-2023 Basic metabolic pane l calcium total Norma Geiger LAUNCH OPERATOR Work Phone: Start: 11-29-2023 Ct thorax w/o contra st material Alfred P Ezike LAUNCH OPERATOR Work Phone: Start: 11-29-2023 Thromboplastin time partial plasma/whole blood Mary Yan MD Work Phone: Start: 11-29-2023 Glucose measurement Gen [facility] Work Phone: Start: 11-29-2023 Ecg routine ecg w/le ast 12 lds trcg only w/o i&r Ger W Aguilera DO Work Phone: Start: 11-29-2023 Glucose measurement Gen [facility] Work Phone: Start: 11-29-2023 Thromboplastin time partial plasma/whole blood Mary Yan MD Work Phone: Start: 11-29-2023 Basic metabolic pane l calcium total Norma Tania [place] LAUNCH OPERATOR Work Phone: Start: 11-28-2023 Glucose measurement Gen [facility] Work Phone: Start: 11-28-2023 Glucose measurement Gen [facility] Work Phone: Start: 11-28-2023 Glucose measurement Gen [facility] Work Phone: Start: 11-28-2023 Glucose measurement Gen [facility] Work Phone: Start: 11-28-2023 Basic metabolic pane l calcium total Norma Tania [place] LAUNCH OPERATOR Work Phone: Start: 11-28-2023 Glucose measurement Gen [facility] Work Phone: Start: 11-28-2023 Basic metabolic pane l calcium total Norma Tania [place] LAUNCH OPERATOR Work Phone: Start: 11-27-2023 End: 11-27-2023 Basic metabolic panel calcium total Norma Tania [place] LAUNCH OPERATOR Work Phone: Start: 11-27-2023 C-reactive protein Mehdi Pabon MD Work Phone: Start: 11-27-2023 Glucose measurement Gen [facility] Work Phone: Start: 11-27-2023 Glucose measurement Gen [facility] Work Phone: Start: 11-27-2023 Glucose measurement Gen [facility] Work Phone: Start: 11-27-2023 Basic metabolic pane l calcium total Norma Tania Juanjo LAUNCH OPERATOR Work Phone: Start: 11-27-2023 Glucose measurement Gen [facility] Work Phone: Start: 11-27-2023 Iaad ia clostridium difficile toxin Norma Geiger LAUNCH OPERATOR Work Phone: Start: 11-27-2023 Hemoglobin glycosyla chinyere a1c Mary Yan MD Work Phone: Start: 11-27-2023 Glucose measurement Gen [facility] Work Phone: Start: 11-27-2023 Basic metabolic pane l calcium total Norma Geiger LAUNCH OPERATOR Work Phone: Start: 11-27-2023 Glucose measurement Gen [facility] Work Phone: Start: 11-27-2023 Glucose measurement Gen [facility] Work Phone: Start: 11-27-2023 End: 11-27-2023 Glucose measurement Generic [facility] Work Phone: Start: 11-27-2023 Basic metabolic pane l calcium total Norma Geiger LAUNCH OPERATOR Work Phone: Start: 11-27-2023 Glucose measurement Gen [facility] Work Phone: Start: 11-27-2023 Glucose measurement Gen [facility] Work Phone: Start: 11-27-2023 Glucose measurement Gen [facility] Work Phone: Start: 11-27-2023 Basic metabolic pane l calcium total Norma Geiger LAUNCH OPERATOR Work Phone: Start: 11-27-2023 Influenza virus A an d B RNA and SARS-CoV-2 (COVID-19) N gene panel - Respiratory specimen by ALICE with probe detection Norma Geiger LAUNCH OPERATOR Work Phone: Start: 11-27-2023 Polymerase chain ty ction analysis Norma Geiger LAUNCH OPERATOR Work Phone: Start: 11-27-2023 End: 11-27-2023 Glucose measurement Generic [facility] Work Phone: Start: 11-27-2023 Assay of troponin quantitative Norma Geiger CNP Work Phone: Start: 11-27-2023 Gases blood ph direc t nikkie xcpt pulse oximitry Generic [facility] Work Phone: Start: 11-27-2023 End: 11-27-2023 Glucose measurement [facility] Work Phone: Start: 11-27-2023 Radiologic exam ches t single view Norma Geiger CNP Work Phone: Start: 11-27-2023 End: 11-27-2023 Gases blood ph direct nikkie xcpt pulse oximitry Generic [facility] Work Phone: Start: 11-27-2023 Ecg routine ecg w/le ast 12 lds trcg only w/o i&r Norma Geiger CNP Work Phone: Start: 11-27-2023 OBTAIN ARTERIAL BLOO D GASES AND PERFORM Norma Geiger CNP Work Phone: Start: 11-27-2023 OBTAIN VENOUS BLOOD GASES AND PERFORM Norma Geiger CNP Work Phone: Start: 11-27-2023 End: 11-27-2023 Basic metabolic panel calcium total Norma Geiger CNP Work Phone: Start: 11-27-2023 End: 11-27-2023 Culture bacterial blood aerobic w/id isolates Norma Geiger CNP Work Phone: Start: 11-27-2023 Lipid panel Norma Tavares CNP Work Phone: Start: 11-27-2023 End: 11-27-2023 Glucose measurement [facility] Work Phone: Start: 11-27-2023 Thyrotropin [Units/v olume] in Serum or Plasma [facility] Start: 11-27-2023 Assay of troponin quantitative Ger Sim Aguilera DO Work Phone: Start: 11-26-2023 EXTRA TUBES Ger W Swi ft DO Work Phone: Start: 11-26-2023 GREEN TOP Ger W Swi ft DO Work Phone: Start: 11-26-2023 Assay of lactate Ger Sim Aguilera DO Work Phone: Start: 11-26-2023 Iadna s aureus methi cillin resist amp probe tq Ger Sim Aguilera DO Work Phone: Start: 11-26-2023 Radiologic exam ches t single view Ger Sim Aguilera DO Work Phone: Start: 11-26-2023 End: 11-26-2023 Comprehensive metabolic panel Ger Sim Aguilera DO Work Phone: Start: 11-26-2023 PB ED PLACEHOLDER Ger Sim Aguilera DO Work Phone: Start: 11-25-2023 Plain chest X-ray Start: 11-17-2023 Plain chest X-ray Start: 10-13-2023 Glucose quantitative blood xcpt reagent strip Vera Rivera MD Work Phone: Start: 10-13-2023 Glucose quantitative blood xcpt reagent strip Vera Rivera MD Work Phone: Start: 10-13-2023 Radiologic exam ches t single view Vera Rivera MD Work Phone: Start: 10-13-2023 Basic metabolic pane l calcium total Vera Rivera MD Work Phone: Start: 10-13-2023 Glucose quantitative blood xcpt reagent strip Vera Rivera MD Work Phone: Start: 10-12-2023 Glucose quantitative blood xcpt reagent strip Vera Rivera MD Work Phone: Start: 10-12-2023 Glucose quantitative blood xcpt reagent strip Vera Rivera MD Work Phone: Start: 10-12-2023 Glucose quantitative blood xcpt reagent strip Vera Rivera MD Work Phone: Start: 10-12-2023 Glucose quantitative blood xcpt reagent strip Praful Pineda MD Work Phone: Start: 10-12-2023 EXTRA TUBES Praful Pineda MD Work Phone: Start: 10-12-2023 LIGHT BLUE TOP Praful Pineda MD Work Phone: Start: 10-12-2023 SST TOP Praful Pineda MD Work Phone: Start: 10-12-2023 Basic metabolic pane l calcium total Praful Pineda MD Work Phone: Start: 10-12-2023 Glucose quantitative blood xcpt reagent [...] 10-11-2023 Glucose quantitative blood xcpt reagent strip Vera Rivera MD Work Phone: Start: 10-11-2023 Echo tthrc r-t 2d w/wom-mode compl spec&colr d Vera Rivera MD Work Phone: Start: 10-11-2023 End: 10-11-2023 Glucose quantitative blood xcpt reagent strip Praful Pineda MD Work Phone: Start: 10-11-2023 EXTRA TUBES Aury Rouse DO Work Phone: Start: 10-11-2023 End: 10-11-2023 Procalcitonin (pct) Praful Pineda MD Work Phone: Start: 10-11-2023 SST TOP Aury Rouse DO Work Phone: Start: 10-11-2023 EXTRA URINE DEY TUBE R yeison Silver Nasim DO Work Phone: Start: 10-11-2023 Urinalysis complete [...] DO Work Phone: Start: 10-11-2023 End: 10-11-2023 Ecg routine ecg w/least 12 lds i&r only Aury Rouse DO Work Phone: Start: 10-11-2023 Iadna dna/rna rsv amplified probe technique Aury Rouse DO Work Phone: Start: 10-11-2023 Influenza virus A an d B RNA [Identifier] in Unspecified specimen by ALICE with probe detection Aury Rouse DO Work Phone: Start: 10-11-2023 SARS-CoV-2 (COVID-19 ) RNA [Presence] in Respiratory specimen by ALICE with probe detection Aury Rouse DO Work Phone: Start: 09-27-2023 Lipid 1996 panel - S laurence or Plasma Praful Pineda MD Work Phone: Start: 09-27-2023 Thyrotropin [Units/v olume] in Serum or Plasma Praful Pineda MD Work Phone: Start: 06-21-2023 3 comp foot exam completed Paty Ortega CNP Work Phone: Start: 02-19-2023 3 comp foot exam completed Paty Ortega LAUNCH OPERATOR Work Phone: Start: 02-12-2023 Lipid 1996 panel - S laurence or Plasma Ayanna Albert DO Work Phone: Start: 02-12-2023 Thyrotropin [Units/v olume] in Serum or Plasma Ayanna Albert DO Work Phone: Start: 10-19-2022 3 comp foot exam completed Paty Ortega CNP Work Phone: Start: 06-19-2022 3 comp foot exam completed Paty Ortega LAUNCH OPERATOR Work Phone: Start: 02-13-2022 3 comp foot exam completed Mary Yan MD Work Phone: Start: 10-13-2021 3 comp foot exam completed Paty Ortega CNP Work Phone: Start: 06-20-2021 3 comp foot exam completed Paty Ortega CNP Work Phone: Start: 06-11-2021 Microalbumin [Mass/v olume] in Urine by Test strip Paty Ortega CNP Work Phone: Start: 02-26-2021 Duplex scan extracra nial art compl bi study Mary Yan MD Work Phone: Start: 02-18-2021 3 comp foot exam completed Mary Yan MD Work Phone: Start: 10-18-2020 3 comp foot exam completed Paty Ortega Start: 10-14-2020 Ophthalmic examinati on and evaluation Paty Jordan HUDSON Work Phone: Start: 10-03-2020 Microalbumin [Mass/v olume] in Urine by Test strip Paty Jordan Start: 11-16-2019 3 comp foot exam completed Paty Jordan Start: 07-17-2019 3 comp foot exam completed Paty Jordan Start: 07-04-2019 [object Object] Comment on above: Result Comment: AGE- SPECIFIC REFERENCE RANGES FOR SERUM PSA REFERENCE RANGE NG/ML AGE ASIANS BLACKS WHITE 40-49 0-2 0-2 0-2.5 50-59 0-3 0-4 0-3.5 60-69 0-4 0-4.5 0-4.5 70-79 0-5 0-5.5 0-6.5 PSA INCREASES WITH AGE, RACE, AND EJACULATION WITHIN 48 HRS. [facility] VOL24,NO.2, , PG.339 Performed By: #### [id number] #### [facility] [address] [place] [address] Start: 03-13-2019 3 comp foot exam completed Keeley Patton Start: 11-11-2018 3 comp foot exam completed Mary Yan Start: 07-05-2018 3 comp foot exam completed Keeley Patton Start: 02-15-2017 3 comp foot exam completed Ya Parker Plan of Treatment Date Care Activity Detail Author Start: 02-12-2026 Creatinine measurement Creatinine Level [facility] Start: 02-12-2026 Lipid panel Lipid Panel [facility] Start: 02-12-2026 Potassium measurement Potassium Level [facility] Start: 02-12-2026 Thyroid stimulating hormone measurement TSH Level [facility] Start: 02-12-2026 Urine screening for protein Diabetes: Urine Protein Screening [facility] Start: 11-13-2025 Diabetic foot examination Diabetic Foot Exam [facility] Start: 10-27-2025 Screening for malignant neoplasm of lung Low-dose CT Lung Cancer Screen [facility] Start: 09-23-2025 eGFR Diabetes eGFR Diabetes [facility] Start: 09-05-2025 Urine screening for protein eGFR Diabetes [facility] Start: 08-14-2025 Hemoglobin A1c measurement A1C [facility] Start: 08-14-2025 Urine screening for protein eGFR Diabetes [facility] Start: 07-13-2025 End: 07-13-2025 Patient encounter procedure 07/13/2025 1:00 PM EDT Office Visit [facility] [place] [address] [place] [address] Paty Ortega, TRISTAN [address] [place] [address] [facility] [place] Start: 07-07-2025 Creatinine measurement Creatinine Level [facility] Start: 07-07-2025 Potassium measurement Potassium Level [facility] Start: 07-07-2025 Thyroid stimulating hormone measurement TSH Level [facility] Start: 07-02-2025 Influenza vaccination Influenza Vaccine (Season Ended) [facility] Start: 06-12-2025 End: 06-12-2025 Patient encounter procedure 06/12/2025 9:20 AM EDT Office Visit [facility] [address] [place] [address] Woo Grigsby MD [address] [place] [address] [facility] Start: 05-30-2025 Hemoglobin A1c measurement A1C [facility] Start: 05-17-2025 End: 05-17-2025 Patient encounter procedure [facility] Start: 05-14-2025 Hemoglobin A1c measurement [facility] Start: 05-14-2025 End: 05-14-2025 Patient encounter procedure 05/14/2025 11:20 AM EDT Office Visit [facility] [address] [place] [address] Woo Grigsby MD [address] [place] [address] [facility] Start: 04-28-2025 Urine screening for protein eGFR Diabetes [facility] Start: 04-18-2025 Urine screening for protein eGFR Diabetes [facility] Start: 03-23-2025 Medicare Annual Wellness Visit Medicare Annual Wellness Visit (AWV) [facility] Start: 03-12-2025 End: 03-12-2025 Patient encounter procedure 03/12/2025 2:00 PM EDT Office Visit [facility] [place] [address] [place] [address] Paty Ortega CNP [address] [place] [address] [facility] [place] Start: 02-26-2025 End: 02-26-2026 Basic metabolic 2000 panel - Serum or Plasma Basic metabolic panel Lab Routine Stage 3b chronic kidney disease (Multi) Expected: 02/26/2025 (Approximate), Expires: 02/26/2026 [facility] Service Area Work Phone: Comment on above: Expected: 02/26/2025 (Approximate), Expi res: 02/26/2026 Start: 02-06-2025 Creatinine measurement Creatinine Level [facility] Start: 02-06-2025 Potassium measurement Potassium Level [facility] Start: 02-04-2025 Hemoglobin A1c measurement A1C [facility] Start: 11-29-2024 Screening for malignant neoplasm of lung Low-dose CT Lung Cancer Screen [facility] Start: 11-27-2024 Thyroid stimulating hormone measurement TSH Level [facility] Start: 11-26-2024 Creatinine measurement Creatinine Level [facility] Start: 11-26-2024 Potassium measurement Potassium Level [facility] Start: 11-20-2024 End: 11-20-2024 Patient encounter procedure 11/20/2024 2:45 PM EST Office Visit [facility] [place] [address] [place] [phone] Paty Ortega CNP [address] [place] [address] [facility] [place] Start: 11-14-2024 End: 11-14-2024 Patient encounter procedure 11/14/2024 10:40 AM EST Office Visit [facility] [address] [place] [address] Woo Grigsby MD [address] [place] [address] [facility] Start: 11-13-2024 End: 11-13-2024 Patient encounter procedure 11/13/2024 11:30 AM EST Office Visit [facility] [address] [place] [address] Paty Ortega CNP [address] [place] [address] [facility] Start: 11-07-2024 End: 11-07-2024 Patient encounter procedure 11/07/2024 10:00 AM EST Office Visit [facility] [address] 3rd [place] [address] Brock Groves MD [address] [place] [address] [facility] Start: 11-03-2024 End: 11-03-2024 Patient encounter procedure [facility] Start: 10-27-2024 End: 10-27-2024 Admission to same day surgery center 10/27/2024 10:05 AM EST - 10/27/2024 10:55 AM EST Surgery [facility] Cardiovascular Lab [address] [place] [address] Elías Rodriguez MD [address] [place] [address] Left Heart Cath [facility] Cardiovascular Lab Comment on above: Left Heart Cath Start: 10-27-2024 Subsequent hospital visit by physician [facility] Procedural Care Unit Start: 10-18-2024 End: 10-18-2024 Patient encounter procedure 10/18/2024 1:20 PM EST Office Visit [facility] [address] 3rd [place] [phone] Woo Grigsby MD [address] [place] [address] [facility] Start: 10-13-2024 Creatinine measurement Creatinine Level [facility] Start: 10-13-2024 Potassium measurement Potassium Level [facility] Start: 10-11-2024 Echocardiography Echocardiogram [facility] Start: 10-06-2024 Hemoglobin A1c measurement [facility] Start: 09-27-2024 Lipid panel Lipid Panel [facility] Start: 09-27-2024 Thyroid stimulating hormone measurement TSH Level [facility] Start: 08-29-2024 End: 08-29-2025 Comprehensive metabolic 2000 panel - Serum or Plasma Comprehensive metabolic panel Lab Routine Stage 3b chronic kidney disease (Multi) Expected: 08/29/2024 (Approximate), Expires: 08/29/2025 [facility] Service Area Work Phone: Comment on above: Expected: 08/29/2024 (Approximate), Expi res: 08/29/2025 Start: 08-29-2024 End: 08-29-2025 Microalbumin/Creatinine [Mass Ratio] in Urine Albumin-Creatinine Ratio, Urine Random Lab Routine Stage 3b chronic kidney disease (Multi) Expected: 08/29/2024 (Approximate), Expires: 08/29/2025 [facility] Work Phone: Comment on above: Expected: 08/29/2024 (Approximate), Expi res: 08/29/2025 Start: 08-29-2024 End: 08-29-2025 Urinalysis complete panel - Urine Urinalysis with Reflex Microscopic Lab Routine Stage 3b chronic kidney disease (Multi) Expected: 08/29/2024 (Approximate), Expires: 08/29/2025 [facility] Work Phone: Comment on above: Expected: 08/29/2024 (Approximate), Expi res: 08/29/2025 Start: 08-29-2024 End: 08-29-2024 Patient encounter procedure 08/29/2024 1:00 PM EDT Office Visit [facility] Medical Office Building [address] [place] [id number] Madie Albert, CIGAR HEAD PUNCHER-LAUNCH OPERATOR, DNP [address] [facility] [address] [place] [address] [facility] Medical [facility] Building Start: 08-25-2024 End: 02-23-2025 Microalbumin/Creatinine [Mass Ratio] in Urine Albumin , Urine Random Lab Routine Stage 3b chronic kidney disease (Multi) Expected: 08/25/2024 (Approximate), Expires: 02/23/2025 [facility] Work Phone: Comment on above: Expected: 08/25/2024 (Approximate), Expi res: 02/23/2025 Start: 08-09-2024 Urine screening for protein Diabetes: Urine Protein Screening [facility] Start: 07-21-2024 End: 07-21-2024 Patient encounter procedure 07/21/2024 1:45 PM EDT Office Visit [facility] [place] [address] [place] [address] Paty Ortega, LAUNCH OPERATOR [address] [place] [address] [facility] [place] Start: 07-02-2024 COVID-19 Vaccine ( season) COVID-19 Vaccine ( season) [facility] Start: 07-02-2024 COVID-19 Vaccine ( season) COVID-19 Vaccine ( season) [facility] Start: 07-02-2024 Influenza vaccination [facility] Start: 06-21-2024 Diabetic foot examination [facility] Start: 05-31-2024 Urine screening for protein eGFR Diabetes [facility] Start: 04-24-2024 End: 04-24-2024 ambulatory [facility] Start: 04-24-2024 End: 04-24-2024 Patient encounter procedure 04/24/2024 9:40 AM EDT Office Visit [facility] [address] [facility] [place] [address] Woo Grigsby MD [facility] [place] [address] [facility] Start: 03-27-2024 Hemoglobin A1c measurement A1C [facility] Start: 02-26-2024 Hemoglobin A1c measurement [facility] Start: 02-24-2024 End: 02-23-2025 Basic metabolic 2000 panel - Serum or Plasma Basic metabolic panel Lab Routine Stage 3b chronic kidney disease (Multi) Expected: 02/24/2024 (Approximate), Expires: 02/23/2025 [facility] Service Area Work Phone: Comment on above: Expected: 02/24/2024 (Approximate), Expi res: 02/23/2025 Start: 02-24-2024 End: 02-23-2025 Phosphate [Mass/volume] in Serum or Plasma Phosphorus Lab Routine Stage 3b chronic kidney disease (Multi) Expected: 02/24/2024 (Approximate), Expires: 02/23/2025 [facility] Work Phone: Comment on above: Expected: 02/24/2024 (Approximate), Expi res: 02/23/2025 Start: 02-24-2024 End: 02-23-2025 Urate [Mass/volume] in Serum or Plasma Uric acid Lab Routine Stage 3b chronic kidney disease (Multi) Expected: 02/24/2024 (Approximate), Expires: 02/23/2025 [facility] Work Phone: Comment on above: Expected: 02/24/2024 (Approximate), Expi res: 02/23/2025 Start: 02-24-2024 End: 02-24-2024 Patient encounter procedure 02/24/2024 1:45 PM EDT Office Visit [facility] Medical Office Building [address] [place] [address] Madie Albert, CIGAR HEAD PUNCHER-LAUNCH OPERATOR, DNP [address] [place] [address] [facility] Medical Office [facility] Start: 02-20-2024 Diabetic foot examination Foot Exam [facility] Start: 02-18-2024 End: 02-18-2024 ambulatory [facility] [place] Start: 02-18-2024 End: 02-18-2024 Patient encounter procedure 02/18/2024 1:00 PM EDT Office Visit [facility] Endocrin[facility] [place] [address] [place] [address] Paty Ortega CNP [address] [place] [address] [facility] [place] Start: 02-13-2024 Lipid panel Lipid Panel [facility] Start: 02-13-2024 Thyroid stimulating hormone measurement TSH Level [facility] Start: 01-14-2024 End: 01-14-2024 ambulatory [facility] Start: 01-14-2024 End: 01-14-2024 Patient encounter procedure 01/14/2024 11:00 AM EDT Office Visit [facility] [address] [facility] [place] [address] Aylin Lacy CNP [address] [place] [address] [facility] Start: 01-12-2024 End: 01-12-2024 ambulatory [facility] Start: 01-12-2024 End: 01-12-2024 Patient encounter procedure [facility] Start: 01-10-2024 End: 10-08-2024 Comprehensive metabolic 2000 panel - Serum or Plasma Comprehensive Metabolic Panel Lab Routine 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) Expected: 01/10/2024 (Approximate), Expires: 10/08/2024 [facility] Work Phone: Comment on above: Expected: 01/10/2024 (Approximate), Expi res: 10/08/2024 Start: 01-10-2024 End: 10-08-2024 Hemoglobin A1c/Hemoglobin.total in Blood Hemoglobin A1c Lab Routine 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) Expected: 01/10/2024 (Approximate), Expires: 10/08/2024 [facility] Comment on above: Expected: 01/10/2024 (Approximate), Expi res: 10/08/2024 Start: 12-28-2023 Hemoglobin A1c measurement Diabetes: Hemoglobin A1C [facility] Start: 12-09-2023 Glaucoma screening Diabetes: Retinopathy Screening [facility] Start: 11-29-2023 End: 11-29-2023 Patient encounter procedure [facility] Start: 10-19-2023 Diabetic foot examination Foot Exam [facility] Start: 10-08-2023 End: 10-08-2023 Patient encounter procedure 10/08/2023 11:15 AM EST Office Visit [facility] Endocr[facility] [place] [address] [place] [address] Mary Yan MD [address] [place] [address] [facility] [place] Start: 09-11-2023 Hemoglobin A1c measurement [facility] Start: 08-25-2023 End: 08-25-2024 Basic metabolic 2000 panel - Serum or Plasma Basic metabolic panel Lab Routine Stage 3b chronic kidney disease (CMS/HCC) Expected: 08/25/2023 (Approximate), Expires: 08/25/2024 [facility] Service Area Work Phone: Comment on above: Expected: 08/25/2023 (Approximate), Expi res: 08/25/2024 Start: 08-25-2023 End: 08-25-2024 Microalbumin/Creatinine [Mass Ratio] in Urine Albumin, urine, random Lab Routine Stage 3b chronic kidney disease (CMS/HCC) Expected: 08/25/2023 (Approximate), Expires: 08/25/2024 [facility] Work Phone: Comment on above: Expected: 08/25/2023 (Approximate), Expi res: 08/25/2024 Start: 07-02-2023 COVID-19 Vaccine () COVID-19 Vaccine () [facility] Start: 07-02-2023 Influenza vaccination [facility] Start: 06-21-2023 End: 06-21-2023 Patient encounter procedure 06/21/2023 1:15 PM EDT Office Visit [facility] Endocr[facility] [place] [address] [place] [address] Paty Ortega, TRISTAN [address] [place] [address] [facility] [place] Start: 06-19-2023 Diabetic foot examination Foot Exam [facility] Start: 06-01-2023 End: 02-20-2024 Comprehensive metabolic 2000 panel - Serum or Plasma Comprehensive Metabolic Panel Lab Routine 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) Expected: 06/01/2023, Expires: 02/20/2024 [facility] Work Phone: Comment on above: Expected: 06/01/2023, Expires: 4 Start: 06-01-2023 End: 02-20-2024 Hemoglobin A1c/Hemoglobin.total in Blood Hemoglobin A1c Lab Routine 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) Expected: 06/01/2023, Expires: 02/20/2024 [facility] Comment on above: Expected: 06/01/2023, Expires: 4 Start: 05-14-2023 Hemoglobin A1c measurement A1C [facility] Start: 02-19-2023 End: 02-19-2023 Patient encounter procedure 02/19/2023 Office Visit Endocrinology Paty Ortega, LAUNCH OPERATOR [address] [place] [address] [facility] [place] Start: 02-13-2023 Diabetic foot examination Foot Exam [facility] Start: 02-05-2023 End: 02-05-2023 Patient encounter procedure 02/05/2023 Appointment Cardiology Paty Ortega, LAUNCH OPERATOR [address] [facility] [place] [address] [facility] Start: 01-30-2023 End: 10-20-2023 Complete blood count with white cell differential, manual CBC and Differential Lab Routine 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) Expected: 01/30/2023, Expires: 10/20/2023 [facility] Comment on above: Expected: 01/30/2023, Expires: 3 Start: 01-30-2023 End: 10-20-2023 Comprehensive metabolic 2000 panel - Serum or Plasma Comprehensive Metabolic Panel Lab Routine 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) Expected: 01/30/2023, Expires: 10/20/2023 [facility] Comment on above: Expected: 01/30/2023, Expires: 3 Start: 01-30-2023 End: 10-20-2023 Hemoglobin A1c/Hemoglobin.total in Blood Hemoglobin A1c Lab Routine 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) Expected: 01/30/2023, Expires: 10/20/2023 [facility] Comment on above: Expected: 01/30/2023, Expires: 3 Start: 01-30-2023 End: 10-20-2023 Lipid 1996 panel - Serum or Plasma Lipid Panel Lab Routine 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) Expected: 01/30/2023, Expires: 10/20/2023 [facility] Comment on above: Expected: 01/30/2023, Expires: 3 Start: 01-30-2023 End: 10-19-2023 Microalbumin measurement, urine, quantitative Microalbumin/Creatinine Ratio, UR Random Lab Routine 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) Expected: 01/30/2023, Expires: 10/19/2023 [facility] Comment on above: Expected: 01/30/2023, Expires: 3 Start: 01-30-2023 End: 10-20-2023 Prostate specific Ag [Mass/volume] in Serum or Plasma PSA, Screen Lab Routine Prostate cancer screening Expected: 01/30/2023, Expires: 10/20/2023 [facility] Comment on above: Expected: 01/30/2023, Expires: 3 Start: 01-30-2023 End: 10-20-2023 Thyrotropin [Units/volume] in Serum or Plasma TSH Lab Routine 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) Expected: 01/30/2023, Expires: 10/20/2023 [facility] Comment on above: Expected: 01/30/2023, Expires: 3 Start: 01-30-2023 End: 10-20-2023 Thyroxine (T4) free [Mass/volume] in Serum or Plasma T4, Free Lab Routine 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) Expected: 01/30/2023, Expires: 10/20/2023 [facility] Comment on above: Expected: 01/30/2023, Expires: 3 Start: 01-25-2023 [email or web address], Provider: Zoila Lopez, Status: Pen, Time: 2:45 PM PTFUADULT4, Provider: Zoila Lopez, Status: Pen, Time: 2:45 [facility]: Start: 01-18-2023 PTRECHECKA, Provider: Carlene Whitehead, Status: Pen, Time: 2:00 PM PTRECHECKA, Provider: Carlene Whitehead, Status: Pen, Time: 2:00 PM [facility] Work Phone: Start: 01-15-2023 [email or web address], Provider: hCaya Chan, Status: Pen, Time: 10:00 AM [email or web address], Provider: Chaya Chan, Status: Pen, Time: 10:00 AM [facility] Work Phone: Start: 01-13-2023 [email or web address], Provider: Chaya Chan, Status: Pen, Time: 10:00 AM [email or web address], Provider: Chaya Chan, Status: Pen, Time: 10:00 AM [facility] [facility] Work Phone[facility] Start: 01-08-2023 [email or web address], Provider: Chaya Chan, Status: Pen, Time: 10:00 AM PTFUADULT4, Provider: Chaya Chan, Status: Pen, Time: 10:00 AM [facility] Work Phone: Start: 01-06-2023 [email or web address], Provider: Zoila Lopez, Status: Pen, Time: 10:00 AM PTFUADULT4, Provider: Zoila Lopez, Status: Pen, Time: 10:00 AM [facility] Work Phone: Start: 01-01-2023 [email or web address], Provider: Zoila Lopez, Status: Pen, Time: 10:45 AM PTFUADULT4, Provider: Zoila Lopez, Status: Pen, Time: 10:45 AM [facility] Work Phone: Start: 12-30-2022 [email or web address], Provider: Zoila Lopez, Status: Pen, Time: 4:15 PM PTFUADULT4, Provider: Zoila Lopez, Status: Pen, Time: 4:15 PM [facility] Work Phone: Start: 12-25-2022 [email or web address], Provider: Chaya Chan, Status: Pen, Time: 7:45 AM PTFUADULT4, Provider: Chaya Chan, Status: Pen, Time: 7:45 AM [facility] Work Phone: Start: 10-19-2022 End: 10-19-2022 Patient encounter procedure 10/19/2022 Office Visit Endocrinology Paty Ortega, TRISTAN [address] [place] [address] [facility] [place] Start: 10-13-2022 Diabetic foot examination Foot Exam [facility] Start: 09-08-2022 Hemoglobin A1c measurement A1C [facility] Start: 07-02-2022 Influenza vaccination [facility] Start: 06-20-2022 Diabetic foot examination Foot Exam [facility] Start: 06-19-2022 End: 06-19-2022 Patient encounter procedure 06/19/2022 Office Visit Endocrinology Jordan Patyeduar Stewart, TRISTAN [address] [place] [address] [facility] [place] Start: 06-11-2022 Microalbumin measurement, urine, quantitative Urine Microalbumin [facility] Start: 05-27-2022 History and physical examination, annual for health maintenance Wellness Visit [facility] Start: 05-27-2022 Medicare Wellness Visit Medicare Wellness Visit [facility] Start: 04-13-2022 Hemoglobin A1c measurement A1C [facility] Start: 03-06-2022 COVID-19 Vaccine (4 - Booster for Moderna series) COVID-19 Vaccine (4 - Booster for Moderna series) [facility] Start: 02-18-2022 Diabetic foot examination Foot Exam [facility] Start: 02-13-2022 End: 02-13-2022 Patient encounter procedure 02/13/2022 Office Visit Endocrinology Mary Yan MD [address] [place] [address] [facility] [place] Start: 01-30-2022 End: 10-14-2022 Comprehensive metabolic 2000 panel - Serum or Plasma Comprehensive Metabolic Panel Lab Routine 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) Expected: 01/30/2022, Expires: 10/14/2022 [facility] Work Phone: Comment on above: Expected: 01/30/2022, Expires: Start: 01-30-2022 End: 10-14-2022 Hemoglobin A1c/Hemoglobin.total in Blood Hemoglobin A1c Lab Routine 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) Expected: 01/30/2022, Expires: 10/14/2022 [facility] Comment on above: Expected: 01/30/2022, Expires: 2 Start: 01-30-2022 End: 10-14-2022 Lipid 1996 panel - Serum or Plasma Lipid Panel Lab Routine 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) Expected: 01/30/2022, Expires: 10/14/2022 [facility] Comment on above: Expected: 01/30/2022, Expires: 2 Start: 01-01-2022 COVID-19 Vaccine (4 - Booster for Moderna series) COVID-19 Vaccine (4 - Booster for Moderna series) [facility] Start: 01-01-2022 COVID-19 Vaccine (4 - Moderna series) COVID-19 Vaccine (4 - Moderna series) [facility] Start: 12-12-2021 Hemoglobin A1c measurement A1C [facility] Start: 12-12-2021 Microalbumin measurement, urine, quantitative Urine Microalbumin [facility] Start: 12-12-2021 Urine screening for protein [facility] Start: 10-18-2021 Diabetic foot examination Foot Exam [facility] Start: 10-14-2021 Glaucoma screening [facility] Start: 10-13-2021 End: 10-13-2021 Patient encounter procedure 10/13/2021 Office Visit Endocrinology Paty Ortega, LAUNCH OPERATOR [address] [place] [address] [facility] [place] Start: 10-03-2021 Albumin DL <= 20 mg/L (U) [Mass/Vol] Urine Microalbumin [facility] Start: 10-03-2021 Microalbumin measurement, urine, quantitative Urine Microalbumin [facility] Start: 10-01-2021 End: 06-21-2022 Comprehensive metabolic 2000 panel - Serum or Plasma Comprehensive Metabolic Panel Lab Routine Type 1 diabetes mellitus with diabetic polyneuropathy (HCC) Expected: 10/01/2021, Expires: 06/21/2022 [facility] Work Phone: Comment on above: Expected: 10/01/2021, Expires: 2 Start: 10-01-2021 End: 06-21-2022 Hemoglobin A1c/Hemoglobin.total in Blood Hemoglobin A1c Lab Routine Type 1 diabetes mellitus with diabetic polyneuropathy (HCC) Expected: 10/01/2021, Expires: 06/21/2022 [facility] Comment on above: Expected: 10/01/2021, Expires: 2 Start: 10-01-2021 End: 06-21-2022 Thyrotropin [Units/volume] in Serum or Plasma TSH Lab Routine Type 1 diabetes mellitus with diabetic polyneuropathy (HCC) Expected: 10/01/2021, Expires: 06/21/2022 [facility] Comment on above: Expected: 10/01/2021, Expires: 2 Start: 10-01-2021 End: 06-21-2022 Thyroxine (T4) free [Mass/volume] in Serum or Plasma T4, Free Lab Routine Type 1 diabetes mellitus with diabetic polyneuropathy (HCC) Expected: 10/01/2021, Expires: 06/21/2022 [facility] Comment on above: Expected: 10/01/2021, Expires: 2 Start: 09-11-2021 Hemoglobin A1c measurement A1C [facility] Start: 08-13-2021 Hemoglobin A1c measurement A1C [facility] Start: 07-31-2021 COVID-19 Vaccine (3 - Booster for Moderna series) COVID-19 Vaccine (3 - Booster for Moderna series) [facility] Start: 07-04-2021 Prostate specific antigen measurement PSA Level [facility] Start: 07-02-2021 Influenza vaccination Sequential Influenza Vaccine (#1) [facility] Start: 06-20-2021 End: 06-20-2021 Patient encounter procedure 06/20/2021 Office Visit Endocrinology Paty Ortega, LAUNCH OPERATOR [address] [place] [address] [phone] [facility] [place] Start: 04-16-2021 History and physical examination, annual for health maintenance Wellness Visit [facility] Start: 04-03-2021 HbA1c (Bld) [Mass fraction] A1C [facility] Start: 02-18-2021 End: 02-18-2021 Office Visit 02/18/2021 Office Visit Endocrinology Mary Yan MD [address] [facility] [place] [address] [phone] [facility] Start: 02-02-2021 End: 10-19-2021 Comprehensive metabolic 2000 panel Comprehensive Metabolic Panel Lab Routine Type 1 diabetes mellitus with diabetic polyneuropathy (HCC) Expected: 02/02/2021, Expires: 10/19/2021 [facility] Comment on above: Expected: 02/02/2021, Expires: Start: 02-02-2021 End: 10-19-2021 Free T4 [Mass/Vol] T4, Free Lab Routine Type 1 diabetes mellitus with diabetic polyneuropathy (HCC) Expected: 02/02/2021, Expires: 10/19/2021 [facility] Comment on above: Expected: 02/02/2021, Expires: Start: 02-02-2021 End: 10-19-2021 HbA1c (Bld) [Mass fraction] Hemoglobin A1c Lab Routine Type 1 diabetes mellitus with diabetic polyneuropathy (HCC) Expected: 02/02/2021, Expires: 10/19/2021 [facility] Comment on above: Expected: 02/02/2021, Expires: Start: 02-02-2021 End: 10-19-2021 TSH Qn TSH Lab Routine Type 1 diabetes mellitus with diabetic polyneuropathy (HCC) Expected: 02/02/2021, Expires: 10/19/2021 [facility] Comment on above: Expected: 02/02/2021, Expires: Start: 12-11-2020 HbA1c (Bld) [Mass fraction] A1C [facility] Start: 11-16-2020 Diabetic foot examination Foot Exam [facility] Start: 10-18-2020 End: 10-18-2020 Office Visit 10/18/2020 Office Visit Endocrinology Keeley Patton CNP [address] [address] [phone] [facility] Start: 10-01-2020 End: 06-19-2021 Comprehensive metabolic 2000 panel Comprehensive Metabolic Panel Lab Routine Type 1 diabetes mellitus with diabetic polyneuropathy (HCC) Expected: 10/01/2020, Expires: 06/19/2021 [facility] Comment on above: Expected: 10/01/2020, Expires: 1 Start: 10-01-2020 End: 06-19-2021 HbA1c (Bld) [Mass fraction] Hemoglobin A1c Lab Routine Type 1 diabetes mellitus with diabetic polyneuropathy (HCC) Expected: 10/01/2020, Expires: 06/19/2021 [facility] Comment on above: Expected: 10/01/2020, Expires: 1 Start: 10-01-2020 End: 06-19-2021 Lipid 1996 panel Lipid Panel Lab Routine Type 1 diabetes mellitus with diabetic polyneuropathy (HCC) Expected: 10/01/2020, Expires: 06/19/2021 [facility] Comment on above: Expected: 10/01/2020, Expires: 1 Start: 10-01-2020 End: 06-18-2021 Microalbumin measurement, urine, quantitative Microalbumin/Creatinine Ratio, UR Random Lab Routine Type 1 diabetes mellitus with diabetic polyneuropathy (HCC) Expected: 10/01/2020, Expires: 06/18/2021 [facility] Comment on above: Expected: 10/01/2020, Expires: 1 Start: 07-17-2020 Diabetic foot examination FOOT EXAM [facility] Start: 07-02-2020 Influenza vaccination Sequential Influenza Vaccine (#1) [facility] Start: 07-02-2020 Influenza vaccination given Sequential Influenza Vaccine (#1) [facility] Start: 05-03-2020 HbA1c (Bld) [Mass fraction] A1C [facility] Start: 03-15-2020 End: 03-15-2020 Office Visit 03/15/2020 Office Visit Endocrinology Keeley Patton, LAUNCH OPERATOR [address] [address] [phone] [facility] Start: 03-13-2020 Diabetic foot examination FOOT EXAM [facility] Start: 01-02-2020 HbA1c (Bld) [Mass fraction] A1C [facility] Start: 11-16-2019 End: 11-16-2019 Office Visit 11/16/2019 Office Visit Endocrinology Paty Ortega, LAUNCH OPERATOR [address] [place] [address] [phone] [facility] Start: 11-11-2019 Diabetic foot examination FOOT EXAM [facility] Start: 07-17-2019 End: 07-17-2019 Office Visit 07/17/2019 Office Visit Endocrinology Keeley Patton, TRISTAN [address] [place] [address] [phone] [facility] Start: 07-05-2019 Diabetic foot examination FOOT EXAM [facility] Start: 07-02-2019 Influenza vaccination given [facility] Start: 03-13-2019 End: 03-13-2019 Ambulatory 03/13/2019 Office Visit Endocrinology Mary Yan MD [address] [place] [address] [phone] [facility] Start: 02-28-2019 Diabetic foot examination (regime/therapy) FOOT EXAM [facility] Start: 01-31-2019 Pneumococcal vaccination PNEUMOCOCCAL VACCINE AGE 65+ (2 of 2 - PPSV23) [facility] Start: 2018 Respiratory Syncytial Virus Immunization: Risk, 60-74 Risk, or 75+ (1 - 1-dose 75+ series) Respiratory Syncytial Virus Immunization: Risk, 60-74 Risk, or 75+ (1 - 1-dose 75+ series) [facility] Start: 2018 RSV High Risk: (Elderly (60+) or Population) (1 - 1-dose 75+ series) RSV High Risk: (Elderly (60+) or Population) (1 - 1-dose 75+ series) [facility] Start: 11-08-2018 End: 11-08-2018 Ambulatory 11/08/2018 Office Visit Endocrinology Ya Parker PA-C [address] [place] [address] [phone] [facility] Start: 10-29-2018 Diabetic foot examination (regime/therapy) FOOT EXAM [facility] Work Phone: Start: 07-05-2018 End: 07-05-2018 Ambulatory 07/05/2018 Office Visit Endocrinology Jordan Patyeduar Stewart, LAUNCH OPERATOR [address] [place] [address] [phone] [facility] Start: 07-02-2018 Influenza vaccination [facility] Start: 07-02-2018 Influenza vaccination given SEQUENTIAL INFLUENZA VACCINE (#1) [facility] Start: 02-28-2018 Ambulatory 02/28/2018 Office Visit Endocrinology Chon Alexandralizzy Loera, TRISTAN [address] [place] [address] [phone] [facility] Start: 02-15-2018 3 comp foot exam completed FOOT EXAM [facility] Work Phone: Start: 10-29-2017 Ambulatory 10/29/2017 Office Visit Endocrinology Mary Yan MD [address] [place] [address] [phone] [facility] Start: 07-02-2017 Influenza vaccination SEQUENTIAL INFLUENZA VACCINE (#1) [facility] Work Phone: Start: 07-02-2017 SEQUENTIAL INFLUENZA VACCINE (#1) SEQUENTIAL INFLUENZA VACCINE (#1) [facility] Work Phone: Start: 05-10-2017 HbA1c [facility] Work Phone: Start: 2008 ABDOMINAL AORTIC ULTRASOUND ABDOMINAL AORTIC ULTRASOUND [facility] Work Phone: Start: 2008 Fall risk assessment [facility] Start: 2008 Pneumococcal vaccination PNEUMOCOCCAL VACCINE AGE 65+ (1 of 2 - PCV13) [facility] Work Phone: Start: 2008 PNEUMOCOCCAL VACCINE AGE 65+ (1 of 2 - PCV13) PNEUMOCOCCAL VACCINE AGE 65+ (1 of 2 - PCV13) [facility] Work Phone: Start: 2008 Ultrasound scan of abdominal aorta ABDOMINAL AORTIC ULTRASOUND [facility] Work Phone: Start: 2003 RSV patients and/or patients aged 60+ years (1 - 1-dose 60+ series) RSV patients and/or patients aged 60+ years (1 - 1-dose 60+ series) [facility] Start: 2003 Zoster vacc, sc ZOSTER VACCINE [facility] Work Phone: Start: 1993 Administration of herpes zoster vaccine ZOSTER VACCINES (1 of 2) [facility] Start: 1993 ZOSTER VACCINES (1 of 2) ZOSTER VACCINES (1 of 2) [facility] Start: 1965 DTaP/Tdap/Td Vaccines (1 - Tdap) DTaP/Tdap/Td Vaccines (1 - Tdap) [facility] Start: 1961 Hepatitis C antibody, confirmatory test Hepatitis C Screening [facility] Start: 1961 Hepatitis C screening Hepatitis C Screening [facility] Start: 1955 Adolescent depression screening assessment Depression Screening (PHQ9) [facility] Start: 1955 Depression screening using PHQ-9 (Patient Health Questionnaire 9) score [facility] Start: 1953 Albumin Test strip detection limit <= 20 mg/L mass conc (U) URINE MICROALBUMIN [facility] Work Phone: Start: 1953 Diabetic foot examination Diabetes: Foot Exam [facility] Start: 1953 Glaucoma screening [facility] Start: 1953 Ophthalmic examination and evaluation OPHTHALMOLOGY EXAM [facility] Start: 1953 Urine, microalbumin URINE MICROALBUMIN [facility] Work Phone: Start: 1949 Pneumococcal Vaccine: Age 65+ (1 of 2 - PPSV23) Pneumococcal Vaccine: Age 65+ (1 of 2 - PPSV23) [facility] Start: 1946 History and physical examination, annual for health maintenance Wellness Visit [facility] Start: 1943 End: 1943 Low-dose CT Lung Cancer Screen Low-dose CT Lung Cancer Screen [facility] Work Phone: Start: 1943 Protein mass conc COLONOSCOPY [facility] Start: 1943 Screening colonoscopy COLONOSCOPY [facility] Work Phone: Start: 1943 End: 1943 Screening for malignant neoplasm of lung Low-dose CT Lung Cancer Screen [facility] Start: 1943 End: 1943 Tetanus vaccination [facility] Start: 1943 Colonoscopy COLONOSCOPY [facility] Work Phone: Start: 1943 Cyanocobalamin vitamin b-12 Vitamin B-12 [facility] Start: 1943 Diabetes: Celiac Disease Screening Diabetes: Celiac Disease Screening [facility] Start: 1943 Fall risk assessment Falls Risk Assessment [facility] Start: 1943 Low dose computed tomography of chest without contrast Low-dose CT Lung Cancer Screen [facility] Start: 1943 Medicare Annual Wellness Visit Medicare Annual Wellness Visit (AWV) [facility] Start: 1943 Prostate specific antigen measurement PSA Level [facility] Start: 1943 Screening for malignant neoplasm of colon Colorectal Cancer Screening: Colonoscopy [facility] Start: 1943 TETANUS EVERY 10 YR TETANUS EVERY 10 YR [facility] Work Phone: aPTT in Platelet poo r plasma by Coagulation assay aPTT - baseline Lab STAT As needed (Lab) for 1 Occurrences starting 11/26/2023 [facility] Work Phone: Comment on above: As needed (Lab) for 1 Occurrences starti ng 11/26/2023 Bacteria identified in Blood by Culture [facility] Work Phone: End: 11-26-2023 Bacteria identified in Blood by Culture [facility] Work Phone: Comment on above: STAT (Lab) for 1 Occurrences starting until 11/26/2023 Bacteria identified in Blood by Culture [facility] Work Phone: End: 10-27-2024 Bacteria identified in Unspecified specimen by Aerobe culture [facility] Work Phone: Comment on above: Once for 1 Occurrences starting 10/27/20 24 until 10/27/2024 End: 06-18-2018 Basic metabolic 2000 panel Basic Metabolic Panel Routine 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) 1 Occurrences starting 06/17/2017 until 06/18/2018 [facility] Work Phone: Comment on above: 1 Occurrences starting 06/17/2017 until 06/18/2018 End: 10-14-2023 Basic metabolic 2000 panel - Serum or Plasma Basic Metabolic Panel Lab Routine Morning draw (Lab) for 3 Occurrences starting 10/12/2023 until 10/14/2023, 1 completed [facility] Work Phone: Comment on above: Morning draw (Lab) for 3 Occurrences sta rting 10/12/2023 until 10/14/2023, 1 completed End: 03-09-2026 Basic metabolic 2000 panel - Serum or Plasma Basic metabolic panel Lab Routine Coronary 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[place] coronary artery of [place] heart without angina pectoris NSTEMI (non-ST elevated myocardial infarction) (HCC) 1 Occurrences starting 03/09/2025 until 03/09/2026 [facility] Work Phone: Comment on above: 1 Occurrences starting 03/09/2025 until 03/09/2026 End: 04-20-2022 Carotid artery doppler assessment Ultrasound doppler carotid Vascular Ultrasound Routine Bilateral carotid artery stenosis 1 Occurrences starting 02/18/2021 until 04/20/2022 [facility] Comment on above: 1 Occurrences starting 02/18/2021 until 04/20/2022 End: 12-20-2023 Carotid artery doppler assessment Ultrasound doppler carotid Vascular Ultrasound Routine Bilateral carotid artery stenosis 1 Occurrences starting 10/19/2022 until 12/20/2023 [facility] Work Phone: Comment on above: 1 Occurrences starting 10/19/2022 until 12/20/2023 Cath plmt l hrt & ar ts w/njx & angio img s&i LEFT HEART CATH Cardiovascular stress test abnormal Fatigue, unspecified type SOB (shortness of breath) [facility] End: 02-28-2019 CBC and Differential CBC and Differential Routine 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) 1 Occurrences starting 02/28/2018 until 02/28/2019 [facility] CBC panel - Blood by Automated count CBC Lab STAT As needed (Lab) for 1 Occurrences starting 11/26/2023 [facility] Work Phone: Comment on above: As needed (Lab) for 1 Occurrences starti ng 11/26/2023 End: 12-02-2023 CBC panel - Blood by Automated count CBC Lab STAT Every other day (Lab) for 3 Occurrences starting 11/28/2023 until 12/02/2023 [facility] Work Phone: Comment on above: Every other day (Lab) for 3 Occurrences starting 11/28/2023 until 12/02/2023 End: 10-14-2023 CBC W Auto Differential panel - Blood CBC and Auto Differential Lab Routine Morning draw (Lab) for 3 Occurrences starting 10/12/2023 until 10/14/2023, 2 completed [facility] Work Phone: Comment on above: Morning draw (Lab) for 3 Occurrences sta rting 10/12/2023 until 10/14/2023, 2 completed End: 11-11-2019 Complete blood count with white cell differential, manual CBC and Differential Routine 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) 1 Occurrences starting 11/11/2018 until 11/11/2019 [facility] Comment on above: 1 Occurrences starting 11/11/2018 until 11/11/2019 End: 03-13-2020 Complete blood count with white cell differential, manual CBC and Differential Routine 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) 1 Occurrences starting 03/13/2019 until 03/13/2020 [facility] Comment on above: 1 Occurrences starting 03/13/2019 until 03/13/2020 End: 02-19-2022 Complete blood count with white cell differential, manual CBC and Differential Lab Routine Type 1 diabetes mellitus with diabetic polyneuropathy (HCC) 1 Occurrences starting 02/18/2021 until 02/19/2022 [facility] Comment on above: 1 Occurrences starting 02/18/2021 until 02/19/2022 End: 02-14-2023 Complete blood count with white cell differential, manual CBC and Differential Lab Routine 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) 1 Occurrences starting 02/13/2022 until 02/14/2023 [facility] Work Phone: Comment on above: 1 Occurrences starting 02/13/2022 until 02/14/2023 End: 02-18-2025 Complete blood count with white cell differential, manual CBC and Differential Lab Routine 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) 1 Occurrences starting 02/18/2024 until 02/18/2025 [facility] Comment on above: 1 Occurrences starting 02/18/2024 until 02/18/2025 End: 07-22-2025 Complete blood count with white cell differential, manual CBC and Differential Lab Routine 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) 1 Occurrences starting 07/21/2024 until 07/22/2025 [facility] Comment on above: 1 Occurrences starting 07/21/2024 until 07/22/2025 End: 03-13-2026 Complete blood count with white cell differential, manual CBC and Differential Lab Routine 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) 1 Occurrences starting 03/12/2025 until 03/13/2026 [facility] Comment on above: 1 Occurrences starting 03/12/2025 until 03/13/2026 End: 10-27-2025 Complete PFT with Pre and Post Bronchodilator Complete PFT with Pre and Post Bronchodilator PFT Routine Pulmonary emphysema, unspecified emphysema type (HCC) 1 Occurrences starting 10/27/2024 until 10/27/2025 [facility] Comment on above: 1 Occurrences starting 10/27/2024 until 10/27/2025 End: 07-06-2019 Comprehensive metabolic 2000 panel Comprehensive Metabolic Panel Routine 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) 1 Occurrences starting 07/05/2018 until 07/06/2019 [facility] Comment on above: 1 Occurrences starting 07/05/2018 until 07/06/2019 End: 11-11-2019 Comprehensive metabolic 2000 panel Comprehensive Metabolic Panel Routine Essential hypertension 1 Occurrences starting 11/11/2018 until 11/11/2019 [facility] Comment on above: 1 Occurrences starting 11/11/2018 until 11/11/2019 End: 07-17-2020 Comprehensive metabolic 2000 panel Comprehensive Metabolic Panel Lab Routine Type 1 diabetes mellitus with diabetic polyneuropathy (HCC) 1 Occurrences starting 07/17/2019 until 07/17/2020 [facility] Comment on above: 1 Occurrences starting 07/17/2019 until 07/17/2020 End: 11-16-2020 Comprehensive metabolic 2000 panel Comprehensive Metabolic Panel Lab Routine Type I diabetes mellitus with neurological manifestations, uncontrolled (HCC) 1 Occurrences starting 11/16/2019 until 11/16/2020 [facility] Comment on above: 1 Occurrences starting 11/16/2019 until 11/16/2020 End: 03-13-2020 Comprehensive metabolic 2000 panel Comprehensive Metabolic Panel Routine 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) 1 Occurrences starting 03/13/2019 until 03/13/2020 [facility] Comment on above: 1 Occurrences starting 03/13/2019 until 03/13/2020 End: 02-19-2022 Comprehensive metabolic 2000 panel - Serum or Plasma Comprehensive Metabolic Panel Lab Routine Type 1 diabetes mellitus with diabetic polyneuropathy (HCC) 1 Occurrences starting 02/18/2021 until 02/19/2022 [facility] Comment on above: 1 Occurrences starting 02/18/2021 until 02/19/2022 End: 02-14-2023 Comprehensive metabolic 2000 panel - Serum or Plasma Comprehensive Metabolic Panel Lab Routine 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) 1 Occurrences starting 02/13/2022 until 02/14/2023 [facility] Comment on above: 1 Occurrences starting 02/13/2022 until 02/14/2023 End: 06-20-2023 Comprehensive metabolic 2000 panel - Serum or Plasma Comprehensive Metabolic Panel Lab Routine 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) 1 Occurrences starting 06/19/2022 until 06/20/2023 [facility] Work Phone: Comment on above: 1 Occurrences starting 06/19/2022 until 06/20/2023 End: 02-18-2025 Comprehensive metabolic 2000 panel - Serum or Plasma Comprehensive Metabolic Panel Lab Routine 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) 1 Occurrences starting 02/18/2024 until 02/18/2025 [facility] Work Phone: Comment on above: 1 Occurrences starting 02/18/2024 until 02/18/2025 End: 07-22-2025 Comprehensive metabolic 2000 panel - Serum or Plasma Comprehensive Metabolic Panel Lab Routine 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) 1 Occurrences starting 07/21/2024 until 07/22/2025 [facility] Work Phone: Comment on above: 1 Occurrences starting 07/21/2024 until 07/22/2025 End: 11-14-2025 Comprehensive metabolic 2000 panel - Serum or Plasma Comprehensive Metabolic Panel Lab Routine 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) 1 Occurrences starting 11/13/2024 until 11/14/2025 [facility] Work Phone: Comment on above: 1 Occurrences starting 11/13/2024 until 11/14/2025 End: 03-13-2026 Comprehensive metabolic 2000 panel - Serum or Plasma Comprehensive Metabolic Panel Lab Routine 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) 1 Occurrences starting 03/12/2025 until 03/13/2026 [facility] Work Phone: Comment on above: 1 Occurrences starting 03/12/2025 until 03/13/2026 End: 02-28-2019 Comprehensive metabolic panel [AGGREGATE] Comprehensive Metabolic Panel Routine 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) Essential hypertension 1 Occurrences starting 02/28/2018 until 02/28/2019 [facility] End: 10-30-2018 Comprehensive metabolic panel [AGGREGATE] Comprehensive Metabolic Panel Routine 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) Essential hypertension Pure hypercholesterolemia 1 Occurrences starting 10/29/2017 until 10/30/2018 [facility] Work Phone: End: 11-26-2023 ECG 12 lead [facility] Service Area Work Phone: Comment on above: Once for 1 Occurrences starting 11/26/19 24 until 11/26/2023 Electrocardiogram, 12-lead PRN ACS symptoms Electrocardiogram, 12-lead PRN ACS symptoms ECG Routine As needed until discontinued starting 10/11/2023 [facility] Service Area Work Phone: Comment on above: As needed until discontinued starting Electrocardiogram, 12-lead PRN ACS symptoms Electrocardiogram, 12-lead PRN ACS symptoms ECG Routine As needed until discontinued starting 10/11/2023 [facility] Work Phone: Comment on above: As needed until discontinued starting End: 02-28-2019 External Lab Microalbumin/Creatinine External Lab Microalbumin/Creatinine Routine 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) Essential hypertension 1 Occurrences starting 02/28/2018 until 02/28/2019 [facility] End: 11-11-2019 External Lab Microalbumin/Creatinine External Lab Microalbumin/Creatinine Routine Essential hypertension 1 Occurrences starting 11/11/2018 until 11/11/2019 [facility] Comment on above: 1 Occurrences starting 11/11/2018 until 11/11/2019 End: 02-19-2022 External Lab Microalbumin/Creatinine External Lab Microalbumin/Creatinine Lab Routine Type 1 diabetes mellitus with diabetic polyneuropathy (HCC) 1 Occurrences starting 02/18/2021 until 02/19/2022 [facility] Comment on above: 1 Occurrences starting 02/18/2021 until 02/19/2022 End: 02-14-2023 External Lab Microalbumin/Creatinine External Lab Microalbumin/Creatinine Lab Routine 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) 1 Occurrences starting 02/13/2022 until 02/14/2023 [facility] Comment on above: 1 Occurrences starting 02/13/2022 until 02/14/2023 Glucose [Mass/volume ] in Serum or Plasma POCT GLUCOSE Point of Care Testing Routine 4x daily - AC and at bedtime until discontinued starting 10/11/2023 [facility] Work Phone: Comment on above: 4x daily - AC and at bedtime until disco ntinued starting 10/11/2023 End: 10-15-2023 Glucose [Mass/volume] in Serum or Plasma POCT GLUCOSE Point of Care Testing Routine 4 times daily before meals and at bedtime for 3 Days starting 10/12/2023 until 10/15/2023 [facility] Work Phone: Comment on above: 4 times daily before meals and at bedtim e for 3 Days starting 10/12/2023 until 10/15/2023 End: 02-28-2019 HbA1c Hemoglobin A1c Routine 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) Essential hypertension 1 Occurrences starting 02/28/2018 until 02/28/2019 [facility] End: 10-30-2018 HbA1c Hemoglobin A1c Routine 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) Essential hypertension Pure hypercholesterolemia 1 Occurrences starting 10/29/2017 until 10/30/2018 [facility] Work Phone: End: 07-17-2020 HbA1c (Bld) [Mass fraction] Hemoglobin A1c Lab Routine Type 1 diabetes mellitus with diabetic polyneuropathy (HCC) 1 Occurrences starting 07/17/2019 until 07/17/2020 [facility] Comment on above: 1 Occurrences starting 07/17/2019 until 07/17/2020 End: 11-16-2020 HbA1c (Bld) [Mass fraction] Hemoglobin A1c Lab Routine Type I diabetes mellitus with neurological manifestations, uncontrolled (HCC) 1 Occurrences starting 11/16/2019 until 11/16/2020 [facility] Comment on above: 1 Occurrences starting 11/16/2019 until 11/16/2020 End: 03-13-2020 HbA1c (Bld) [Mass fraction] Hemoglobin A1c Routine 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) 1 Occurrences starting 03/13/2019 until 03/13/2020 [facility] Comment on above: 1 Occurrences starting 03/13/2019 until 03/13/2020 End: 02-19-2022 Hemoglobin A1c/Hemoglobin.total in Blood Hemoglobin A1c Lab Routine Type 1 diabetes mellitus with diabetic polyneuropathy (HCC) 1 Occurrences starting 02/18/2021 until 02/19/2022 [facility] Comment on above: 1 Occurrences starting 02/18/2021 until 02/19/2022 End: 02-14-2023 Hemoglobin A1c/Hemoglobin.total in Blood Hemoglobin A1c Lab Routine 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) 1 Occurrences starting 02/13/2022 until 02/14/2023 [facility] Comment on above: 1 Occurrences starting 02/13/2022 until 02/14/2023 End: 06-20-2023 Hemoglobin A1c/Hemoglobin.total in Blood Hemoglobin A1c Lab Routine 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) 1 Occurrences starting 06/19/2022 until 06/20/2023 [facility] Comment on above: 1 Occurrences starting 06/19/2022 until 06/20/2023 End: 02-18-2025 Hemoglobin A1c/Hemoglobin.total in Blood Hemoglobin A1c Lab Routine 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) 1 Occurrences starting 02/18/2024 until 02/18/2025 [facility] Comment on above: 1 Occurrences starting 02/18/2024 until 02/18/2025 End: 07-22-2025 Hemoglobin A1c/Hemoglobin.total in Blood Hemoglobin A1c Lab Routine 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) 1 Occurrences starting 07/21/2024 until 07/22/2025 [facility] Comment on above: 1 Occurrences starting 07/21/2024 until 07/22/2025 End: 11-14-2025 Hemoglobin A1c/Hemoglobin.total in Blood Hemoglobin A1c Lab Routine 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) 1 Occurrences starting 11/13/2024 until 11/14/2025 [facility] Comment on above: 1 Occurrences starting 11/13/2024 until 11/14/2025 End: 03-13-2026 Hemoglobin A1c/Hemoglobin.total in Blood Hemoglobin A1c Lab Routine 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) 1 Occurrences starting 03/12/2025 until 03/13/2026 [facility] Comment on above: 1 Occurrences starting 03/12/2025 until 03/13/2026 End: 07-06-2019 Hemoglobin A1c/Hemoglobin.total mass fraction (Bld) Hemoglobin A1c Routine 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) 1 Occurrences starting 07/05/2018 until 07/06/2019 [facility] Comment on above: 1 Occurrences starting 07/05/2018 until 07/06/2019 End: 11-11-2019 Hemoglobin A1c/Hemoglobin.total mass fraction (Bld) Hemoglobin A1c Routine 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) 1 Occurrences starting 11/11/2018 until 11/11/2019 [facility] Comment on above: 1 Occurrences starting 11/11/2018 until 11/11/2019 End: 06-18-2018 Hemoglobin A1c/Hemoglobin.total mass fraction (Bld) Hemoglobin A1c Routine 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) 1 Occurrences starting 06/17/2017 until 06/18/2018 [facility] Work Phone: Comment on above: 1 Occurrences starting 06/17/2017 until 06/18/2018 Heparin unfractionat ed [Units/volume] in Platelet poor plasma by Chromogenic method [facility] Work Phone: Comment on above: As needed (Lab) for 1 Occurrences starti ng 11/26/2023 As needed (Lab) for 30 Occurrences starting 11/26/2023 End: 10-13-2023 Home O2 eval (desaturation screen) Home O2 eval (desaturation screen) Respiratory Care Routine Once for 1 Occurrences starting 10/13/2023 until 10/13/2023 [facility] Service Area Work Phone: Comment on above: Once for 1 Occurrences starting 10/13/20 23 until 10/13/2023 End: 11-11-2019 Lipid 1996 panel Lipid Panel Routine 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) 1 Occurrences starting 11/11/2018 until 11/11/2019 [facility] Comment on above: 1 Occurrences starting 11/11/2018 until 11/11/2019 End: 07-17-2020 Lipid 1996 panel Lipid Panel Lab Routine Pure hypercholesterolemia 1 Occurrences starting 07/17/2019 until 07/17/2020 [facility] Comment on above: 1 Occurrences starting 07/17/2019 until 07/17/2020 End: 02-19-2022 Lipid 1996 panel - Serum or Plasma Lipid Panel Lab Routine Type 1 diabetes mellitus with diabetic polyneuropathy (HCC) 1 Occurrences starting 02/18/2021 until 02/19/2022 [facility] Comment on above: 1 Occurrences starting 02/18/2021 until 02/19/2022 End: 02-18-2025 Lipid 1996 panel - Serum or Plasma Lipid Panel Lab Routine 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) 1 Occurrences starting 02/18/2024 until 02/18/2025 [facility] Comment on above: 1 Occurrences starting 02/18/2024 until 02/18/2025 End: 07-22-2025 Lipid 1996 panel - Serum or Plasma Lipid Panel Lab Routine 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) 1 Occurrences starting 07/21/2024 until 07/22/2025 [facility] Comment on above: 1 Occurrences starting 07/21/2024 until 07/22/2025 End: 11-14-2025 Lipid 1996 panel - Serum or Plasma Lipid Panel Lab Routine 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) Pure hypercholesterolemia 1 Occurrences starting 11/13/2024 until 11/14/2025 [facility] Comment on above: 1 Occurrences starting 11/13/2024 until 11/14/2025 End: 03-13-2026 Lipid 1996 panel - Serum or Plasma Lipid Panel Lab Routine 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) 1 Occurrences starting 03/12/2025 until 03/13/2026 [facility] Comment on above: 1 Occurrences starting 03/12/2025 until 03/13/2026 End: 02-28-2019 Lipid panel Lipid Panel Routine 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) 1 Occurrences starting 02/28/2018 until 02/28/2019 [facility] Noninvasive Ventilation Noninvas frank Ventilation Respiratory Care Routine For RT frequency use only for continuous procedures with task-based reminders at 8a and 8p until discontinued starting 11/26/2023 [facility] Work Phone: Comment on above: For RT frequency use only for continuous procedures with task-based reminders at 8a and 8p until discontinued starting 11/26/2023 End: 03-12-2020 Prostate specific Ag [Mass/Vol] PSA, Screen Routine Prostate cancer screening 1 Occurrences starting 03/13/2019 until 03/12/2020 [facility] Comment on above: 1 Occurrences starting 03/13/2019 until 03/12/2020 End: 02-13-2023 Prostate specific Ag [Mass/volume] in Serum or Plasma PSA, Screen Lab Routine Prostate cancer screening 1 Occurrences starting 02/13/2022 until 02/13/2023 [facility] Comment on above: 1 Occurrences starting 02/13/2022 until 02/13/2023 Prothrombin time (PT) Protime-IN R Lab STAT As needed (Lab) for 1 Occurrences starting 11/26/2023 [facility] Work Phone: Comment on above: As needed (Lab) for 1 Occurrences starti ng 11/26/2023 End: 10-29-2018 PSA, Screen PSA, Screen Routine Prostate cancer screening 1 Occurrences starting 10/29/2017 until 10/29/2018 [facility] Work Phone: End: 10-11-2023 Respiratory care eval and treat Respiratory care eval and treat Respiratory Care Routine Once for 1 Occurrences starting 10/11/2023 until 10/11/2023 [facility] Work Phone: Comment on above: Once for 1 Occurrences starting 10/11/20 23 until 10/11/2023 End: 10-21-2024 SPECT Heart perfusion NM Myocardial Perfusion Multiple SPECT Imaging Routine Congestive heart failure, unspecified HF chronicity, unspecified heart failure type (HCC) 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 1 Occurrences starting 10/21/2023 until 10/21/2024 [facility] Work Phone: Comment on above: 1 Occurrences starting 10/21/2023 until 10/21/2024 End: 11-11-2019 T4 free mass conc T4, Free Routine 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) 1 Occurrences starting 11/11/2018 until 11/11/2019 [facility] Comment on above: 1 Occurrences starting 11/11/2018 until 11/11/2019 End: 02-18-2025 Thyrotropin [Units/volume] in Serum or Plasma TSH Lab Routine 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) 1 Occurrences starting 02/18/2024 until 02/18/2025 [facility] Comment on above: 1 Occurrences starting 02/18/2024 until 02/18/2025 End: 07-22-2025 Thyrotropin [Units/volume] in Serum or Plasma TSH Lab Routine 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) 1 Occurrences starting 07/21/2024 until 07/22/2025 [facility] Comment on above: 1 Occurrences starting 07/21/2024 until 07/22/2025 End: 11-14-2025 Thyrotropin [Units/volume] in Serum or Plasma TSH Lab Routine 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) 1 Occurrences starting 11/13/2024 until 11/14/2025 [facility] Comment on above: 1 Occurrences starting 11/13/2024 until 11/14/2025 Thyrotropin [Units/volume] in Serum or Plasma TSH with Reflex Free T4 Lab Routine 02/12/2025 10:25 AM EDT [facility] Work Phone: End: 03-13-2026 Thyrotropin [Units/volume] in Serum or Plasma TSH Lab Routine 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) 1 Occurrences starting 03/12/2025 until 03/13/2026 [facility] Comment on above: 1 Occurrences starting 03/12/2025 until 03/13/2026 End: 11-11-2019 Thyrotropin Qn TSH Routine 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) 1 Occurrences starting 11/11/2018 until 11/11/2019 [facility] Comment on above: 1 Occurrences starting 11/11/2018 until 11/11/2019 End: 02-28-2019 Thyroxine (T4) free T4, Free Routine 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) 1 Occurrences starting 02/28/2018 until 02/28/2019 [facility] End: 02-18-2025 Thyroxine (T4) free [Mass/volume] in Serum or Plasma T4, Free Lab Routine 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) 1 Occurrences starting 02/18/2024 until 02/18/2025 [facility] Comment on above: 1 Occurrences starting 02/18/2024 until 02/18/2025 End: 07-22-2025 Thyroxine (T4) free [Mass/volume] in Serum or Plasma T4, Free Lab Routine 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) 1 Occurrences starting 07/21/2024 until 07/22/2025 [facility] Comment on above: 1 Occurrences starting 07/21/2024 until 07/22/2025 End: 11-14-2025 Thyroxine (T4) free [Mass/volume] in Serum or Plasma T4, Free Lab Routine 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) 1 Occurrences starting 11/13/2024 until 11/14/2025 [facility] Comment on above: 1 Occurrences starting 11/13/2024 until 11/14/2025 End: 03-13-2026 Thyroxine (T4) free [Mass/volume] in Serum or Plasma T4, Free Lab Routine 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) 1 Occurrences starting 03/12/2025 until 03/13/2026 [facility] Comment on above: 1 Occurrences starting 03/12/2025 until 03/13/2026 End: 02-28-2019 TSH TSH Routine 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) 1 Occurrences starting 02/28/2018 until 02/28/2019 [facility] Immunizations Immunization Date Immunization Notes Care Provider Nancy amor 07-03-2020 zoster vaccine recombinant Ayanna Albert DO Work Phone: [facility] Work Phone: 04-17-2020 zoster vaccine recombinant Ayanna Juanito DO Work Phone: [facility] Work Phone: 03-31-2019 pneumococcal polysaccharide vaccine, 23 valent Ayanna Albert DO Work Phone: [facility] Work Phone: 01-31-2018 pneumococcal conjuga te vaccine, 13 valent Ayanna Albert DO Work Phone: [facility] Work Phone: 11-10-2016 HEMOGLOBIN A1C Ya Parker [facility] Work Phone: Payers Date Payer Category Payer Self-pay [id number] 2021 Medicare (Managed Care) [employer]ICARE [id number] 2021 Medicare PPO [employer] MEDICARE P JAYDON (PPO) [id number] 2021 Private Health Insurance [id number] 2015 Medicare [id number] 2015 Medicare [id number]. [id number] 2015 Medicare [id number]. [id number] 2015 Medicare [id number] 2.16.840.1.197405.3.249.13 1943 Unknown [id number] 2.16.840.1.039768.3.579.2. 1069 1943 Unknown [id number] 2.16.840.1.168157.3.579.2. 1068 1943 Unknown [id number] 2.16.840.1.004007.3.579.2. 1068 1943 Unknown [id number] 2.16.840.1.629627.3.579.2. 1068 1943 Unknown [id number] 2.16.840.1.872311.3.579.2. 1068 1943 Unknown [id number] 2.16.840.1.932487.3.579.2. 1068 1943 Unknown [id number] 2.16.840.1.043798.3.579.2. 1068 1943 Unknown [id number] 2.16.840.1.179835.3.579.2. 1068 1943 Unknown [id number] 2.16.840.1.967507.3.579.2. 1068 1943 Unknown [id number] 2.16.840.1.920632.3.579.2. 1068 1943 Unknown [id number] 2.16.840.1.504673.3.579.2. 1068 1943 Unknown [id number] 2.16.840.1.767625.3.579.2. 356 1943 Unknown [id number] 2.16.840.1.315921.3.579.2. 1244 1943 Unknown [id number] 2.16.840.1.508695.3.579.2. 1244 1943 Unknown [id number] 2.16.840.1.277845.3.579.2. 1244 1943 Unknown [id number] 2.16.840.1.792600.3.579.2. 1243 1943 Unknown [id number] 2.16.840.1.726966.3.579.2. 1243 1943 Unknown [id number] 2.16.840.1.515319.3.579.2. 903 1943 Unknown [id number] 2.16.840.1.259356.3.579.2. 1943 Unknown [id number] 2.16.840.1.372415.3.579.2. 1943 Unknown [id number] 2.16.840.1.583674.3.579.2. 1943 Unknown [id number] 2.16.840.1.099741.3.579.2. 1943 Unknown [id number] 2.16.840.1.316794.3.579.2. 1943 Unknown [id number] 2.840.1.619531.3.579.2 1943 Unknown [id number] 2.16.840.1.446011.3.579.2. 1943 Unknown [id number] 2.16.840.1.835001.3.579.2 1943 Unknown [id number] 2.16.840.1.482318.3.579.2. 3 1943 Unknown [id number] 2.840.1.041899.3.579.2. 1943 Unknown [id number] 2.16.840.1.817761.3.579.2. 90 1943 Unknown [id number] 2.16.840.1.404222.3.579.2. 1943 Unknown [id number] 2.16.840.1.008768.3.579.2. 90 1943 Unknown [id number] 2.16.840.1.224714.3.579.2. 1943 Unknown [id number] 2.16.840.1.678094.3.579.2. 1243 Unknown [employer] Unknown [id number] 2.16.840.1.383009.3.579.2. 462 Unknown [id number] 2.16.840.1.671787.3.579.2. 462 Unknown [id number] 2.16.840.1.089942.3.579.2. 462 Unknown [id number] 2.16.840.1.491113.3.579.2. 462 Unknown [id number] 2.16.840.1.357094.3.579.2. 462 Unknown [id number] 2.16.840.1.152476.3.579.2. 462 Unknown [id number] 2.16.840.1.218859.3.579.2. 462 Unknown [id number] 2.16.840.1.569679.3.579.2. 462 Unknown [id number] 2.16.840.1.474639.3.579.2. 462 Unknown [id number] 2.16.840.1.596004.3.579.2. 462 Unknown [id number] 2.16.840.1.827173.3.579.2. 462 Unknown [id number] 2.16.840.1.944946.3.579.2. 462 Social History Date Type Detail Facility Start: 11-01-1965 End: 11-09-2024 Tobacco smoking status IDIS Current every day smoker [facility] Work Phone: Start: 02-28-2018 End: 02-28-2025 Cigarettes smoked current (pack per day) - Reported [facility] Start: 1945 Sex Assigned At Not on file [email or web address] Phone: Start: 07-17-2019 End: 03-12-2025 Alcohol intake Current non-drinker of alcohol (finding) [facility] Start: 06-18-2020 End: 11-09-2024 Tobacco use and exposure Never used [facility] Start: 02-03-2022 End: 02-26-2025 Exposure to SARS-CoV-2 (event) Not sure [facility] Start: 11-01-1965 History of tobacco use Cigarette Smoker [facility] Start: 10-19-2022 End: 02-28-2025 Tobacco use panel [facility] Start: 08-25-2023 End: 02-26-2025 Alcohol intake Lifetime non-drinker (finding) [facility] Work Phone: How hard is it for y ou to pay for the very basics like food, housing, medical care, and heating Not hard at all [facility] In the past 12 month s, was there a time when you were not able to pay the mortgage or rent on time? No [facility] Work Phone: Start: 1945 Sex Assigned At Male [facility] Start: 10-11-2023 Gender identity Identifies as male gender (finding) [facility] Work Phone: Start: 10-11-2023 Sexual orientation Heterosexual (finding) [facility] Work Phone: Start: 08-05-2021 Tobacco smoking status NHIS Unknown if ever smoked [facility] (I/We) worried whehermilo er (my/our) food would run out before (I/we) got money to buy more. Never true [facility] Start: 02-09-2025 Sex Male (finding) [facility] Medical Equipment Procedure Code Equipment Code Equipment Origin al Text Equipment Identifier Dates [id number] Start: 08-12-2015 End: 03-13-2019 USE DIRECTED FOUR TIMES A DAY FOR INSULIN INJECTION [id number] Start: 09-12-2018 E10.9 Use as directed 4 times per day. [id number] Start: 06-10-2017 use as directed 4 times per day for insulin injection. [id number] Start: 06-17-2017 use as directed 4 times per day for insulin injection. [id number] Start: 05-19-2016 End: 06-17-2017 Use as directed 4 times per day. Dx E10.9 Patient with type 1 DM on insulin with hypoglycemia. Needs to check BG QID; takes insulin QID . [id number] Start: 03-13-2019 Use as directed 4x daily DX code E10.65 . [id number] Start: 10-20-2019 Use as directed 4 times per day. Dx E10.9 Patient with type 1 DM on insulin with hypoglycemia. Needs to check BG QID; takes insulin QID . [id number] Start: 03-15-2020 End: 02-18-2021 Use as directed 4x daily DX code E10.65 . [id number] Start: 10-07-2020 End: 10-08-2021 Use as directed 4 times per day. Dx E10.9 Patient with type 1 DM on insulin with hypoglycemia. Needs to check BG QID; takes insulin QID . [id number] Start: 02-18-2021 End: 02-13-2022 Use as directed 4x daily DX code E10.65 . [id number] Start: 10-09-2021 End: 12-31-2022 Use as directed 4 times per day. Dx E10.9 Patient with type 1 DM on insulin with hypoglycemia. Needs to check BG QID; takes insulin QID . [id number] Start: 02-13-2022 End: 02-19-2023 Use as directed 4x daily DX code E10.65 . [id number] Start: 12-31-2022 Use as directed 4 times per day. Dx E10.9 Patient with type 1 DM on insulin with hypoglycemia. Needs to check BG QID; takes insulin QID . [id number] Start: 02-19-2023 End: 03-06-2024 BD Jolynn 2nd Gen Pen Needle 32 gauge x 5/32 needle [id number] Start: 07-01-2023 Use as directed 4 times per day. Dx E10.9 Patient with type 1 DM on insulin with hypoglycemia. Needs to check BG QID; takes insulin QID . [id number] Start: 02-19-2023 Use as directed 4x daily Dx code E10.65 . [id number] Start: 12-01-2023 End: 12-08-2024 TEST BLOOD GLUCO SE FOUR TIMES DAILY E10.65 . [id number] Start: 03-06-2024 Use as directed 4x daily Dx code E10.65 . [id number] Start: 12-08-2024 Blood Sugar Diagnostic (Contour Next Test Strips) strip Start: 09-12-2024 Clinical Notes 02-18-2021 to 03-27-2025 Telephone Encounter - Ej Guidry MA - 03/27/2025 1:23 PM EDTTelephone Encounter - Ej Guidry MA - 03/27/2025 1:23 PM EDTPaty Ortega CNP - 03/12/2025 1:50 PM EDT Note Date & Type Note Facility 03-27-2025 Telephone encounter Note Called pt's Alice with lab results per Dr. Grigsby. Alice verbalized understanding and had no further questions. [facility] 03-27-2025 Miscellaneous Notes Called pt's Alice with lab results per Dr. Grigsby. Alice verbalized understanding and had no further questions. Left voicemail asking for pt to call back to go over lab results per Dr. Grigsby. Given phone number to call back. ----- Message from Ej Isbell sent at 03/27/2025 10:43 AM EDT ----- ----- Message ----- From: Woo Grigsby MD Sent: 03/27/2025 10:35 AM EDT To: Luisa Easley RN Ok we can drop to lasix 40mg daily and continue spironolactone Potassium is normal He can take extra 40mg lasix PRN for weight gain and shortness of breath ----- Message ----- From: Interface, Lab Results In [facility] Sent: 03/24/2025 7:18 AM EDT To: Woo Grigsby MD documented in this encounter [facility] 03-27-2025 Telephone encounter Note Left voicemail asking for pt to call back to go over lab results per Dr. Grigsby. Given phone number to call back. [facility] 03-27-2025 Telephone encounter Note ----- Message from Ej Isbell sent at 03/27/2025 10:43 AM EDT ----- ----- Message ----- From: Woo Grigsby MD Sent: 03/27/2025 10:35 AM EDT To: Luisa Easley RN Ok we can drop to lasix 40mg daily and continue spironolactone Potassium is normal He can take extra 40mg lasix PRN for weight gain and shortness of breath ----- Message ----- From: Interface, Lab Results In [facility] Sent: 03/24/2025 7:18 AM EDT To: Woo Grigsby MD [facility] 03-12-2025 Note Patient ID: Enoc Fernandes is a 79 y.o. male Subjective: HPI: Enoc Fernandes presents for follow-up of Type 1 diabetes The initial diagnosis of diabetes was made 39 years ago in 1994. Disease course has been stable. Mr. Fernandes is a 79 y.o. male patient who presents the office for a follow-up of his type 1 diabetes. Patient's most recent hemoglobin A1c is 7.4%. Patient reports that he does follow a diabetic diet. His weight stable from his last visit with us. Complications from his diabetes includes neuropathy. He denies nephropathy or retinopathy. Hospitalized 02/28/25 with Acute on chronic SOB possible pneumonia. Noted to be in mild DKA with BG >500, CO2 18, Positive BHB. Discharged on diuretics and following with cardiology/cardiac rehab. He was also hospitalized following cardiac cath October 2024, hyperglycemia and hyperkalemia required IV insulin gtt. Pertinent negatives for diabetes include: no chest [...] Patient has been checking BG TID. Breakfast: 98-260 Lunch: - Supper: 66-332 Bedtime: 85-310 *Blood sugar records were not brought with the patient to his appointment today due to meter issue. Patient's weight is stable Patient is following a diabetic diet. Meal planning includes avoidance of concentrated sweets. An PASCALE inhibitor/angiotensin II receptor deepali is being taken. Patient does not see a javascript ui developer. Eye exam is current. Currently taking: No oral hypoglycemic medications Admelog insulin: 7 units at breakfast; 8 units at lunch; 8-9 units at supper Lantus insulin: 15 units at bedtime Outpatient Medications Marked as Taking for the 03/12/25 encounter (Office Visit) with Paty Ortega CNP: acetaminophen (Tylenol Arthritis Pain) 650 MG CR tablet, Take 1 (one) tablet (650 mg total) by mouth every 8 (eight) hours as needed for pain . amLODIPine (NORVASC) 10 MG tablet, Take 1 (one) tablet (10 mg total) by mouth daily Start: 03/06/25. aspirin 81 MG EC tablet, Take 1 (one) tablet (81 mg total) by mouth daily . blood sugar diagnostic (Contour Next Test Strips) strips, TEST BLOOD GLUCOSE FOUR TIMES DAILY E10.65 . ezetimibe (Zetia) 10 mg tablet, Take 1 (one) tablet (10 mg total) by mouth daily . furosemide (LASIX) 40 MG tablet, Take 1 (one) tablet (40 mg total) by mouth 2 (two) times a day . hydrALAZINE (APRESOLINE) 50 MG tablet, Take 1 (one) tablet (50 mg total) by mouth every 8 (eight) hours . insulin glargine (Basaglar KwikPen U-100 Insulin) 100 unit/mL (3 mL) InPn, Inject 18 (eighteen) Units under the skin nightly . (Patient taking differently: Inject 14 (fourteen) Units under the skin nightly .) insulin lispro 100 unit/mL InPn, Inject 8 (eight) Units under the skin 3 (three) times a day . (Patient taking differently: Inject 12 (twelve) Units under the skin 3 (three) times a day .) isosorbide mononitrate (IMDUR) 30 MG 24 hr tablet, Take 1 (one) tablet (30 mg total) by mouth daily . metoprolol succinate (TOPROL-XL) 25 MG 24 hr tablet, Take 1 (one) tablet (25 mg total) by mouth daily . OXYGEN-AIR DELIVERY SYSTEMS MISC, Inhale 2 L/min See Admin Instructions . pen needle, diabetic (BD Ultra-Fine Jolynn Pen Needle) 32 gauge x 5/32 Ndle, Use as directed 4x daily Dx code E10.65 . tamsulosin (FLOMAX) 0.4 mg capsule, Take 1 (one) capsule (0.4 mg total) by mouth daily . Review of Systems: Review of Systems Constitutional: Positive for fatigue and unexpected weight change (weight loss). Negative for appetite change. HENT: Negative for congestion and ear pain. Eyes: Negative for visual disturbance. Respiratory: Negative for cough and shortness of breath. Cardiovascular: Negative for chest pain and leg swelling. Gastrointestinal: Negative for constipation, diarrhea, nausea and vomiting. Endocrine: Negative for polydipsia, polyphagia and polyuria. Genitourinary: Negative for frequency. Musculoskeletal: Positive for arthralgias and back pain. Hip pain Skin: Negative for wound. Neurological: Positive for weakness (legs, using a cane.), numbness and headaches. Psychiatric/Behavioral: Negative for sleep disturbance. The following portions of the patient's history were reviewed and updated as appropriate: allergies, current medications, past family his (more content not included)... [facility] 03-12-2025 History of Present illness Narrative Images from the original note were not included. Patient ID: Enoc Fernandes is a 79 y.o. male Subjective: HPI: Enoc Fernandes presents for follow-up of Type 1 diabetes The initial diagnosis of diabetes was made 39 years ago in 1994. Disease course has been stable. Mr. Fernandes is a 79 y.o. male patient who presents the office for a follow-up of his type 1 diabetes. Patient's most recent hemoglobin A1c is 7.4%. Patient reports that he does follow a diabetic diet. His weight stable from his last visit with us. Complications from his diabetes includes neuropathy. He denies nephropathy or retinopathy. Hospitalized 02/28/25 with Acute on chronic SOB possible pneumonia. Noted to be in mild DKA with BG >500, CO2 18, Positive BHB. Discharged on diuretics and following with cardiology/cardiac rehab. He was also hospitalized following cardiac cath October 2024, hyperglycemia and hyperkalemia required IV insulin gtt. Pertinent negatives for diabetes include: no chest [...] Patient has been checking BG TID. Breakfast: 98-260 Lunch: - Supper: 66-332 Bedtime: 85-310 *Blood sugar records were not brought with the patient to his appointment today due to meter issue. Patient's weight is stable Patient is following a diabetic diet. Meal planning includes avoidance of concentrated sweets. An PASCALE inhibitor/angiotensin II receptor deepali is being taken. Patient does not see a javascript ui developer. Eye exam is current. Currently taking: No oral hypoglycemic medications Admelog insulin: 7 units at breakfast; 8 units at lunch; 8-9 units at supper Lantus insulin: 15 units at bedtime Outpatient Medications Marked as Taking for the 03/12/25 encounter (Office Visit) with Paty Ortega CNP: acetaminophen (Tylenol Arthritis Pain) 650 MG CR tablet, Take 1 (one) tablet (650 mg total) by mouth every 8 (eight) hours as needed for pain . amLODIPine (NORVASC) 10 MG tablet, Take 1 (one) tablet (10 mg total) by mouth daily Start: 03/06/25. aspirin 81 MG EC tablet, Take 1 (one) tablet (81 mg total) by mouth daily . blood sugar diagnostic (Contour Next Test Strips) strips, TEST BLOOD GLUCOSE FOUR TIMES DAILY E10.65 . ezetimibe (Zetia) 10 mg tablet, Take 1 (one) tablet (10 mg total) by mouth daily . furosemide (LASIX) 40 MG tablet, Take 1 (one) tablet (40 mg total) by mouth 2 (two) times a day . hydrALAZINE (APRESOLINE) 50 MG tablet, Take 1 (one) tablet (50 mg total) by mouth every 8 (eight) hours . insulin glargine (Basaglar KwikPen U-100 Insulin) 100 unit/mL (3 mL) InPn, Inject 18 (eighteen) Units under the skin nightly . (Patient taking differently: Inject 14 (fourteen) Units under the skin nightly .) insulin lispro 100 unit/mL InPn, Inject 8 (eight) Units under the skin 3 (three) times a day . (Patient taking differently: Inject 12 (twelve) Units under the skin 3 (three) times a day .) isosorbide mononitrate (IMDUR) 30 MG 24 hr tablet, Take 1 (one) tablet (30 mg total) by mouth daily . metoprolol succinate (TOPROL-XL) 25 MG 24 hr tablet, Take 1 (one) tablet (25 mg total) by mouth daily . OXYGEN-AIR DELIVERY SYSTEMS MISC, Inhale 2 L/min See Admin Instructions . pen needle, diabetic (BD Ultra-Fine Jolynn Pen Needle) 32 gauge x 5/32 Ndle, Use as directed 4x daily Dx code E10.65 . tamsulosin (FLOMAX) 0.4 mg capsule, Take 1 (one) capsule (0.4 mg total) by mouth daily . Review of Systems: Review of Systems Constitutional: Positive for fatigue and unexpected weight change (weight loss). Negative for appetite change. HENT: Negative for congestion and ear pain. Eyes: Negative for visual disturbance. Respiratory: Negative for cough and shortness of breath. Cardiovascular: Negative for chest pain and leg swelling. Gastrointestinal: Negative for constipation, diarrhea, nausea and vomiting. Endocrine: Negative for polydipsia, polyphagia and polyuria. Genitourinary: Negative for frequency. Musculoskeletal: Positive for arthralgias and back pain. Hip pain Skin: Negative for wound. Neurological: Positive for weakness (legs, using a cane.), numbness and headaches. Psychiatric/Behavioral: Negative for sleep disturbance. The following portions of the patient's history were reviewed and updated as appropriate: allergies, current medications, past family history, past medical history, past social history, past surgical history and problem list. Objective: BP (!) 166/61 Pulse 69 Wt 63.4 kg (139 lb 12.8 oz) BMI 21.90 kg/m Wt Readings from Last 3 Encounters: 03/12/25 63.4 kg (139 lb 12.8 oz) 03/09/25 63.4 kg (139 lb 12.8 oz) 03/02/25 64.1 kg (141 lb 5 oz) Physical Exam: Physical Exam Vitals reviewed. Constitutional: Appearance: He is well-developed. HENT: Head: Normocephalic. Right Ear: There is impacted cerumen. Tympanic membrane is bulging (mild). Left Ear: Ear canal normal. Decreased hearing noted. A middle ear effusion is present. Tympanic membrane is bulging (mild). Eyes: General: No scleral icterus. Conjunctiva/sclera: Conjunctivae normal. Cardiovascular: Rate and Rhythm: Normal rate and regular rhythm. Heart sounds: Normal heart sounds. Pulmonary: Effort: Pulmonary effort is normal. Breath sounds: Normal breath sounds. Skin: General: Skin is warm and dry. Findings: No erythema. Neurological: Mental Status: He is alert and oriented to person, place, and time. Lab Review 03/05/25 Creat: 1.80; eGFR: 37 CBC: WBC: 9.14; Hgb: 9.3; Hct: 28.4; Plt: 191 02/28/25 Hgb A1c: 7.6% 11/06/24: *labs reviewed 03/12/25 Hgb A1c: 9.3% Creat: 2.37; eGFR: 27 AST: 19; ALT: 19 K: 4.9 TSH: 2.65 ; FreeT4: 0.84 10/28/24: Creat: 2.44; eGFR: 26 07/07/24: Hgb A1c: 7.9% Creat: 1.61; eGFR: 43 AST: 13; ALT: 8 K: 4.0 CBC: WBC:7.9; Hgb: 13.6; Hct: 43.5; Plt: 260 TSH: 0.85 ; FreeT4: 1.01 02/07/24 Creat: 1.92; eGFR: 35 11/27/23 Hgb A1c: 7.5% TSH: 0.35 Tchol: 130; Tri; HDL: 56; LDL: 61 09/27/2023 Hemoglobin A1c 7.4% Sodium 143, potassium [...] found. Type 1 diabetes, under good control Enoc Fernandes presents for follow-up of Type 1 diabetes Patient is currently managed with: Humalog insulin: 10-12 units at breakfast, lunch and at supper; Lantus insulin: 14-15 units at bedtime . Most recent Hgb A1c is 7.6%. Reports occasional lows in the early AM and during the day. States if he is low in early AM, he often has visual blurring and his assists him with juice or other carb source. Typically eats a snack if BG <150 at HS. 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 Had bilat cataract extraction Dr. Lopez. Sees Dr. Browne in [place] every year routinely.Has blurred vision with low BG Nephropathy: Positive Creat: 1.8; eGFR: 37. 5/25. Mialb/creat ratio:195 on 02/21, patient takes lisinopril. Follows with Dr. Albert at , last appointment 08/24, next appointment 02/26/25 at 1:30 PM. . Peripheral Neuropathy: Positive Reports bilateral numbness and [...] agents. LFT's WNL. Unable to tolerate statins. Total cholesterol 156, triglycerides 63, HDL 50, [...] separate hydrochlorothiazide 12.5 mg tablet. BP: (!) 166/61; Cardiac: Positive Denies Chest pain or SOB at this time. Had cardiac cath October 2024. Multivessel complex calcified obstructive CAD involving LAD, RCA, and diagonal. May have to have stent in the future. History of CHF. Vascular: Negative ; has some mild edema. [...] lesions at this time. Last foot exam: 03/12/25 Thyroid: Negative 09/27/23 TSH 0.88, FT4--0.87 Other: PSA: PSA: 3.14 02/21 15.89 06/08/22 (ref range 0-4.0) 6.16 07/04/19 (<6.60 is WNL) 4.58 on 02/18/18 4.66 02/05/17; (2.82 12/27/15; 04/01/15: 3.18; 04/03/14: 2.78; 03/11: 1.59) He reports he has been started on Flomax; PSA elevated on labs .06.22. He was referred to Dr. Melendez in June 2022. He reports their office called, but he decided not to mess with that right now. Recheck PSA 3.14 Squamous cell Ca removed [...] 2022. Plan: 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) [E10.40] 1. Rx changes: See insulin dose adjustments below Admelog insulin: 10-12 units at breakfast; 10-12 units at lunch; 10-12 units at supper Lantus insulin: 14-15 units at bedtime 2. Education: Reviewed ABCs of diabetes management (respective goals in parentheses): A1C (7.0-8.0), blood pressure (<130/80), and cholesterol (LDL <100). 3. Compliance at present is estimated to be good. Efforts to improve compliance (if necessary) will be directed at dietary modifications: Limit portion sizes, increased exercise and regular blood sugar monitorin times daily. 4. Follow up: 4-5 months 5. Record blood sugar readings as instructed. Call if BG consistently <70 or >250. [phone] Continue to check blood sugar 3 times [...] Placed This Encounter Procedures Comprehensive Metabolic Panel CBC and Differential Hemoglobin A1c Lipid Panel TSH T4, Free Electronically Signed by: Paty Ortega CNP 03/12/25 1:21 PM documented in this encounter [facility] 03-09-2025 Note General Cardiology N ew Patient Clinic Consult [facility] 03/09/2025 Woo Grigsby MD [address] [place] [address], 3rd Floor Medical Office [facility] [id number] Patient: Enoc Fernandes Date of : 1945 (79 y.o.) PCP: Ryley Jeter MD Date of Service: 03/09/2025 Chief Complaint: Shortness of Breath and Abnormal Lab (BNP) Assessment and Plan: Acute on chronic heart failure exacerbation Secondary to DKA with aggressive volume resuscitation Patient appears remarkably well considering recent hospitalization Echo with normal function Will add 25mg spironolactone for one week to augment diuresis Noting borderline renal function and lower K with increase of lasix Labs in 1 week Plan at that time if clinically improved would be to drop to 40mg daily lasix and try continued spironolactone Referral to cardiac rehab for NSTEMI Hypertension He does have some peripheral vascular disease, likely contributing as well as renal function We can consider transition to coreg if needed Today, adding spironolactone May also benefit from increase in nitroglycerin if felt to be ischemic Coronary 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shinnecock coronary artery of shinnecock heart without angina pectoris (Primary) Patient underwent left heart catheterization with multivessel coronary artery disease 10/27/2024 Multivessel coronary disease Currently not having any symptoms of angina, ejection fraction preserved Would be high risk PCI, not a CABG candidate due to multiple comorbidities including peripheral vascular disease, frailty, diabetes For now continue Imdur, patient is agreeable to restarting Zetia, lipid profile is within normal limits Continue metoprolol Sublingual nitroglycerin as needed Claudication in peripheral vascular disease Patient with moderate peripheral vascular disease by ERIN, also having some left arm heaviness if he raises it over his head, some evidence of left subclavian stenosis Follows with vascular surgery - continue to monitor Bilateral carotid artery stenosis As above It has been a pleasure caring for this patient. Please don't hesitate to reach out to my office directly with any questions or concerns. Follow-up: No follow-ups on file. Woo Grigsby MD, FACC Non-Invasive Cardiology [facility] P:[phone] F:[phone] ---- History of Present Illness: Enoc Fernandes is a 79 y.o. man with a past medical history of insulin-dependent diabetes for 30 years, history of tobacco use, recent COVID infection with systolic dysfunction ejection fraction ranging from 35 to 45% who presented initially to community health care. He underwent stress testing which showed inferior wall abnormality as well as ejection fraction of 50%. I initially met with him back in January 2024 and he was doing quite well, however he presented in October with symptoms of fatigue, malaise, flash pulmonary edema and hypertensive emergency with reduced ejection fraction at [facility]. Left heart catheterization was ultimately recommended which demonstrated multivessel coronary artery disease. He had also been complaining of upper and lower extremity heaviness, and he has since been diagnosed with peripheral vascular disease. He was unfortunately recently hospitalized with demand ischemia and volume overload after DKA event. He has been recovering post hospital. Feels weak. Orthophnea resolving. Objective Review of Systems: All systems were reviewed and are noted to be negative unless otherwise stated in HPI. 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 Tobacco abuse Past Surgical History: Procedure Laterality Date CATARACT EXT/ECCE Bilateral 12/2012,07/2014 RI CATH PLMT L HRT & ARTS W/NJX & ANGIO IMG S&I N/A 10/27/2024 Procedure: Coronary Angiogram; Surgeon: Elías Rodriguez MD; Location: [facility]; Service: Cardiovascular RI CATH PLMT L HRT & ARTS W/NJX & ANGIO IMG S&I N/A 10/27/2024 Procedure: Left Heart Cath; Surgeon: Elías Rodriguez MD; Location: [facility]; Service: Cardiovascular SKIN CANCER EXCISION 09/2021 L ear Family History Problem Relation Age of Onset Coronary artery disease Father Alzheimer's disease Father Social History Tobacco Use Smoking Statu (more content not included)... [facility] 03-09-2025 History of Present illness Narrative General Cardiology New Patient Clinic Consult [facility] 03/09/2025 Woo Grigsby MD [facility] [address], 3rd Floor Medical Office [facility] [address] Patient: Enoc Fernandes Date of : 1945 (79 y.o.) PCP: Ryley Jeter MD Date of Service: 03/09/2025 Chief Complaint: Shortness of Breath and Abnormal Lab (BNP) Assessment and Plan: Acute on chronic heart failure exacerbation Secondary to DKA with aggressive volume resuscitation Patient appears remarkably well considering recent hospitalization Echo with normal function Will add 25mg spironolactone for one week to augment diuresis Noting borderline renal function and lower K with increase of lasix Labs in 1 week Plan at that time if clinically improved would be to drop to 40mg daily lasix and try continued spironolactone Referral to cardiac rehab for NSTEMI Hypertension He does have some peripheral vascular disease, likely contributing as well as renal function We can consider transition to coreg if needed Today, adding spironolactone May also benefit from increase in nitroglycerin if felt to be ischemic Coronary 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shinnecock coronary artery of shinnecock heart without angina pectoris (Primary) Patient underwent left heart catheterization with multivessel coronary artery disease 10/27/2024 Multivessel coronary disease Currently not having any symptoms of angina, ejection fraction preserved Would be high risk PCI, not a CABG candidate due to multiple comorbidities including peripheral vascular disease, frailty, diabetes For now continue Imdur, patient is agreeable to restarting Zetia, lipid profile is within normal limits Continue metoprolol Sublingual nitroglycerin as needed Claudication in peripheral vascular disease Patient with moderate peripheral vascular disease by ERIN, also having some left arm heaviness if he raises it over his head, some evidence of left subclavian stenosis Follows with vascular surgery - continue to monitor Bilateral carotid artery stenosis As above It has been a pleasure caring for this patient. Please don't hesitate to reach out to my office directly with any questions or concerns. Follow-up: No follow-ups on file. Woo Grigsby MD, [facility] Non-Invasive Cardiology [facility] P:[phone] F:[phone] History of Present Illness: Enoc Fernandes is a 79 y.o. man with a past medical history of insulin-dependent diabetes for 30 years, history of tobacco use, recent COVID infection with systolic dysfunction ejection fraction ranging from 35 to 45% who presented initially to community health care. He underwent stress testing which showed inferior wall abnormality as well as ejection fraction of 50%. I initially met with him back in January 2024 and he was doing quite well, however he presented in October with symptoms of fatigue, malaise, flash pulmonary edema and hypertensive emergency with reduced ejection fraction at [facility]. Left heart catheterization was ultimately recommended which demonstrated multivessel coronary artery disease. He had also been complaining of upper and lower extremity heaviness, and he has since been diagnosed with peripheral vascular disease. He was unfortunately recently hospitalized with demand ischemia and volume overload after DKA event. He has been recovering post hospital. Feels weak. Orthophnea resolving. Objective Review of Systems: All systems were reviewed and are noted to be negative unless otherwise stated in HPI. 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 Tobacco abuse Past Surgical History: Procedure Laterality Date CATARACT EXT/ECCE Bilateral 12/2012,07/2014 RI CATH PLMT L HRT & ARTS W/NJX & ANGIO IMG S&I N/A 10/27/2024 Procedure: Coronary Angiogram; Surgeon: Elías Rodriguez MD; Location: [facility]; Service: Cardiovascular RI CATH PLMT L HRT & ARTS W/NJX & ANGIO IMG S&I N/A 10/27/2024 Procedure: Left Heart Cath; Surgeon: Elías Rodriguez MD; Location: [facility]; Service: Cardiovascular SKIN CANCER EXCISION 09/2021 L ear Family History Problem Relation Age of Onset Coronary artery disease Father Alzheimer's disease Father Social History Tobacco Use Smoking Status Every Day Current packs/day: 0.50 Average packs/day: 0.5 packs/day for 61.4 years (30.7 ttl pk-yrs) Types: Cigarettes Start date: 1965 Smokeless Tobacco Never Allergies: Parazip-ymr-ggz reductase inhibitors All of the information has [...] tablet (10 mg total) by mouth daily Start: 03/06/25., Disp: 30 tablet, Rfl: 0 aspirin 81 MG EC tablet, Take 1 (one) tablet (81 mg total) by mouth daily ., Disp: , Rfl: blood sugar diagnostic (Contour Next Test Strips) strips, TEST BLOOD GLUCOSE FOUR TIMES DAILY E10.65 ., Disp: 150 strip, Rfl: 11 ezetimibe (Zetia) 10 mg tablet, Take 1 (one) tablet (10 mg total) by mouth daily ., Disp: 30 tablet, Rfl: 11 furosemide (LASIX) 40 MG tablet, Take 1 (one) tablet (40 mg total) by mouth 2 (two) times a day ., Disp: 180 tablet, Rfl: 3 hydrALAZINE (APRESOLINE) 50 MG tablet, Take 1 (one) tablet (50 mg total) by mouth every 8 (eight) hours ., Disp: 90 tablet, Rfl: 0 insulin glargine (Basaglar KwikPen U-100 Insulin) 100 unit/mL (3 mL) InPn, Inject 18 (eighteen) Units under the skin nightly . (Patient taking differently: Inject 12 (twelve) Units to 14 (fourteen) Units under the skin nightly .), Disp: 15 mL, Rfl: 3 insulin lispro 100 unit/mL InPn, Inject 8 (eight) Units under the skin 3 (three) times a day ., Disp: 7.2 mL, Rfl: 0 ipratropium (ATROVENT) 42 mcg (0.06 %) nasal spray, Instill 2 (two) sprays into each nostril 3 (three) times a day as needed ., Disp: , Rfl: isosorbide mononitrate (IMDUR) 30 MG 24 hr tablet, Take 1 (one) tablet (30 mg total) by mouth daily ., Disp: 90 tablet, Rfl: 3 metoprolol succinate (TOPROL-XL) 25 MG 24 hr tablet, Take 1 (one) tablet (25 mg total) by mouth daily ., Disp: 90 tablet, Rfl: 3 nitroGLYCERIN (Nitrostat) 0.4 MG SL tablet, Place 1 (one) tablet (0.4 mg total) under the tongue every 5 (five) minutes as needed for chest pain , if no relief after 3 doses call 911 ., Disp: 3 tablet, Rfl: 3 OXYGEN-AIR DELIVERY SYSTEMS [facility] Inhale 2 L/min See Admin Instructions ., Disp: , Rfl: pen needle, diabetic (BD Ultra-Fine Jolynn Pen Needle) 32 gauge x Ndle, Use as directed 4x daily Dx code E10.65 ., Disp: 400 each, Rfl: 4 spironolactone (ALDACTONE) 25 MG tablet, Take 1 (one) tablet (25 mg total) by mouth daily ., Disp: 30 tablet, Rfl: 11 tamsulosin (FLOMAX) 0.4 mg capsule, Take 1 (one) capsule (0.4 mg total) by mouth daily ., Disp: 30 capsule, Rfl: 3 Physical Exam: BP (!) 172/54 (BP Location: Left arm, Patient Position: Sitting) Pulse 73 Ht 5' 7 Wt 63.4 kg (139 lb 12.8 oz) SpO2 98% BMI 21.90 kg/m Constitutional: Elderly male, no acute distress however appears malaised head: Normocephalic and atraumatic. Eyes: Conjunctivae are normal, no scleral icterus, no corneal arcus Neck: No acanthosis nigricans, no elevated jugular venous distension, no hepatojugular reflux Cardiovascular: Regular rate and rhythm, no murmurs appreciated on today's exam, normal S1 and S2, no rubs or gallops, PMI is midline Lungs: clear bilateraly, mild crackles right lower lobe Pulses: +1 dorsalis pedis pulses bilaterally, +1 radial pulses bilaterally Musculoskeletal: Normal range of motion. No cyanosis. No peripheral Edema Neurological: AOx3, moving all extremities normally Skin: Skin is warm and dry, normal hair pattern Psychiatric: Normal mood and affect, appropriate conversation Cardiovascular Studies: [facility] 2024 Echo 2023 Carotids 2024 Summary 1. Abnormal pharmacologic nuclear SPECT myocardial perfusion study. 2. No diagnostic ECG changes with regadenoson. 3. There is decreased radiotracer uptake within the basal-mid inferoseptal and distal anterior fuentes on stress imaging which is not present on rest imaging. This is suggestive of ischemia, but is not in a typical coronary distribution and may be in part due to a conduction abnormality. 4. Gated imaging demonstrates normal left ventricular size with septal hypokinesis and mild left ventricular systolic dysfunction, post-stress LVEF 50%, rest LVEF 51%. Conclusions * Right. * Less than 50% stenosis in the right internal carotid artery. * Percent stenosis may be underestimated due to calcific shadowing. * Right innominate artery is not well visualized due depth of vessel. * Elevated velocity suggestive of stenosis in the right subclavian and external carotid arteries. There are post stenotic waveforms noted in the distal subclavian artery. * No evidence of hemodynamically significant stenosis in the right common carotid artery, however abnormal waveforms are noted.. * Right vertebral artery is patent with antegrade flow, however, abnormal waveforms are noted. * Left. * 50-69% stenosis in the left internal carotid artery per strict lab criteria, however, velocities of 623 cm/s with calcification are noted. Based on dey scale and color doppler, greater than 70% stenosis is suggested. Unable to obtain end diastolic velocity. * Percent stenosis may be underestimated due to calcific shadowing. * Elevated velocities noted in the left subclavian artery, however with triphasic waveforms. * Elevated velocity suggestive of stenosis in the left external carotid artery. * No evidence of hemodynamically significant stenosis in the left common carotid artery. * Left vertebral artery is patent with antegrade flow, however elevated velocities were noted. Recommendations * There appears to be a tight stenosis of the left internal carotid artery at the carotid bifurcation associated with dense atherosclerotic plaque. Advanced carotid imaging appears to be warranted. Clinical correlation is advised. Impression: Multivessel complex calcified obstructive CAD involving LAD, RCA, and diagonal 2 Normal LVEDP Recommendations: Continue medical therapy Cardiothoracic surgery consult for possible CABG Routine post-cath care and IV hydration Summary 1. Normal LV chamber size. Normal wall thickness. Systolic function is normal with no regional wall motion abnormalities. Estimated ejection fraction of 60-65%. 2. Right ventricular size and systolic function are normal. 3. There is mild aortic valve regurgitation. 4. There is pulmonary hypertension, estimated right ventricle systolic pressure is 49 mmHg. Summary 1. Left ventricular chamber dimension is normal. 2. Left ventricular systolic function is normal with an ejection fraction by Biplane Method of Discs of 63 %. 3. The left ventricular diastolic function is grade I diastolic dysfunction, consistent with low or normal atrial pressures. Summary 1. Abnormal pharmacologic nuclear SPECT myocardial perfusion study. 2. No diagnostic ECG changes with regadenoson. 3. There is decreased radiotracer uptake within the basal-mid inferoseptal and distal anterior fuentes on stress imaging which is not present on rest imaging. This is suggestive of ischemia, but is not in a typical coronary distribution and may be in part due to a conduction abnormality. 4. Gated imaging demonstrates normal left ventricular size with septal hypokinesis and mild left ventricular systolic dysfunction, post-stress LVEF 50%, rest LVEF 51%. Echocardiogram 10/04/2024 showed normal systolic function with no regional wall motion abnormalities, renal arterial duplex was normal Echocardiogram reviewed from [facility] [...] underestimated. Labs: Lab Results Component Value Date GLUCOSE 156 (H) 03/05/2025 CALCIUM 8.3 (L) 03/05/2025 NA 140 03/05/2025 K 3.4 (L) 03/05/2025 CL 103 03/05/2025 BUN 39 (H) 03/05/2025 CREATININE 1.80 (H) 03/05/2025 Lab Results Component Value Date ALT 13 10/27/2024 AST 12 10/27/2024 ALKPHOS 86 10/27/2024 BILITOT 0.3 10/27/2024 Lab Results Component Value Date WBC 9.14 03/05/2025 HGB 9.3 (L) 03/05/2025 HCT 28.4 (L) 03/05/2025 MCV 92.5 03/05/2025 EXTMCV 95.8 10/18/2024 PLT 191 03/05/2025 RBC 3.07 (L) 03/05/2025 Lab Results Component Value Date CHOL 130 11/27/2023 LDLCALC 61 11/27/2023 TRIG 67 11/27/2023 HDL 56 11/27/2023 Lab Results Component Value Date HGBA1C 7.6 (H) 02/28/2025 Lab Results Component Value Date ALT 13 10/27/2024 AST 12 10/27/2024 ALKPHOS 86 10/27/2024 BILITOT 0.3 10/27/2024 The ASCVD Risk score (Dasha DK, et al., 2019) failed to calculate for the following reasons: The 2019 ASCVD risk score is only valid for ages 40 to 79 Risk score cannot be calculated because patient has a medical history suggesting prior/existing ASCVD documented in this encounter [facility] 03-09-2025 Instructions Woo Grigsby MD - 03/09/2025 7:56 AM EDT How to Contact your Care Team: Provider: Dr. Woo Grigsby MD Clinic Nurse: FIDEL Moran Clinic MA: SUSAN Pagan REFILLS: When in need for refills please call your care team or the office at [phone]. Please include medication name, pharmacy name, and [...] Here are the things we talked about... Spironolactone 25mg daily Do til next week Will call you in a few days Blood work in 2 weeks documented in this encounter [facility] 03-05-2025 Note HMS DISCHARGE SUMMAR Y -- [facility] Enoc Fernandes : 1945 Admitted: 02/28/2025 Discharge Date: 03/05/25 PCP Handoff Recommended Outpatient Testing None Results Pending At Discharge None Clinical Summary Enoc Fernandes is a 79 y.o. male patient of Ryley Jeter MD with history of type I IDDM, hypertension, CAD, diastolic HF, dyslipidemia, COPD, CKD presented to [facility] on 02/28/2025 with shortness of breath. Assessment/plan DKA HAGMA Hyperkalemia T1DM Patient had ear tube inserted 2 days ago, his insulin dose was dropped to half prior to that. VBG with pH 7.29. AG 28, blood glucose 514, positive beta hydroxybutyrate. ' UA with glucosuria, ketones. DKA protocol, initially, DKA resolved, patient on Lantus and sliding scale coverage since 02/28 afternoon Hypertensive emergency Acute on chronic hypoxemic respiratory failure Pulmonary edema, possible acute diastolic heart failure due to hypertensive emergency Nicardipine drip. For few hours then discontinued resume home antihypertensives amlodipine, hydralazine, isosorbide, metoprolol except lisinopril due to kidney injury SBP reduction goal 25% and for 6 hours. Goal to keep SBP around 160 in the first 24 hours. proBNP 9634, up to 23,005/2 Lasix 10 mg IV on 02/28 and another dose 20 mg on 03/01 Chest x-ray 03/02 pulmonary edema, Lasix 40 mg IV then restart patient's home dose of Lasix 40 mg orally twice daily Patient require BiPAP, no need for now Sepsis; source is likely pulmonary Leukocytosis White count 18. Lactic acid 2.5. COVID/influenza negative. IV fluids initially then discontinued urine antigens, sputum culture, RVP. blood cultures x 2. MRSA PCR negative. urine culture negative so far ABX: Vancomycin, Zosyn. Initially, currently on azithro and rocephin status post discontinue vancomycin and Zosyn MADONNA on CKD stage III Creatinine admission 2.66. Baseline creatinine 1.9-2.5. Likely prerenal in the setting of DKA and sepsis. Avoid nephrotoxic agents as able. acute non-STEMI CAD Continue home aspirin, beta-deepali. EKG on 03/02 nonspecific changes Troponin was 200, troponin on 03/02 1300 Discontinue heparin subcu and start the patient on heparin drip Continue telemetry New echocardiogram to assess ejection fraction heart structure Consult cardiology, I spoke with Dr. Garay over the phone recommended 48 hours of IV heparin, agreeable with Lasix BPH Continue home Flomax PT OT Discharge Medications Discharge Medications Modified Medications Details amLODIPine 10 MG tablet Commonly known as: NORVASC Start taking on: March 06, 2025 What changed: Another medication with the same name was removed. Continue taking this medication, and follow the directions you see here. Take 1 (one) tablet (10 mg total) by mouth daily Start: 03/06/25. Quantity: 30 tablet hydrALAZINE 50 MG tablet Commonly known as: APRESOLINE What changed: when to take this Take 1 (one) tablet (50 mg total) by mouth every 8 (eight) hours . Quantity: 90 tablet insulin lispro 100 unit/mL Inpn What changed: how much to take Inject 8 (eight) Units under the skin 3 (three) times a day . Quantity: 7.2 mL Medications To Continue Details aspirin 81 MG EC tablet Take 1 (one) tablet (81 mg total) by mouth daily . Basaglar CiraikPen U-100 Insulin 100 unit/mL (3 mL) Inpn Generic drug: insulin glargine Inject 18 (eighteen) Units under the skin nightly . Quantity: 15 mL Contour Next Test Strips strips Generic drug: blood sugar diagnostic TEST BLOOD GLUCOSE FOUR TIMES DAILY E10.65 . Quantity: 150 strip ezetimibe 10 mg tablet Commonly known as: Zetia Take 1 (one) tablet (10 mg total) by mouth daily . Quantity: 30 tablet furosemide 40 MG tablet Commonly known as: LASIX Take 1 (one) tablet (40 mg total) by mouth 2 (two) times a day . Quantity: 180 tablet ipratropium 42 mcg (0.06 %) nasal spray Commonly known as: ATROVENT Instill 2 (two) sprays into each nostril 3 (three) times a day as needed . isosorbide mononitrate 30 MG 24 hr tablet Commonly known as: IMDUR Take 1 (one) tablet (30 mg total) by mouth daily . Quantity: 90 tablet metoprolol succinate 25 MG 24 hr tablet Commonly known as: TOPROL-XL Take 1 (one) tablet (25 mg total) by mouth daily . Quantity: 90 tablet nitroGLYCERIN 0.4 MG SL tablet Commonly known as: Nitrostat Place 1 (one) tablet (0.4 mg total) under the tongue every 5 (five) minutes as needed for chest pain , if no relief after 3 doses call 911 . Quantity: 3 tablet OXYGEN-AIR DELIVERY SYSTEMS [facility] Inhale 2 L/min See Admin Instructions . pen needle, diabetic 32 gauge x 5/32 Ndle Commonly known as: BD Ultra-Fine Jolynn Pen Needle Use as directed 4x daily Dx code E10.65 . Quantity: 400 each tamsulosin 0.4 mg capsule Commonly known as: FLOMAX Take 1 (one) capsule (0.4 mg total) by mouth daily . (more content not included)... [facility] 03-04-2025 [place] [facility] Patient Name: Enoc Fernandes : 1945 Assessment and Plan Enoc Fernandes is a 79 y.o. male patient of Ryley Jeter MD with history of type I IDDM, hypertension, CAD, diastolic HF, dyslipidemia, COPD, CKD presented to [facility] on 02/28/2025 with shortness of breath. Assessment/plan DKA HAGMA Hyperkalemia T1DM Patient had ear tube inserted 2 days ago, his insulin dose was dropped to half prior to that. VBG with pH 7.29. AG 28, blood glucose 514, positive beta hydroxybutyrate. ' UA with glucosuria, ketones. DKA protocol, initially, DKA resolved, patient on Lantus and sliding scale coverage since 02/28 afternoon Hypertensive emergency Acute on chronic hypoxemic respiratory failure Pulmonary edema, possible acute diastolic heart failure due to hypertensive emergency Nicardipine drip. For few hours then discontinued resume home antihypertensives amlodipine, hydralazine, isosorbide, metoprolol except lisinopril due to kidney injury SBP reduction goal 25% and for 6 hours. Goal to keep SBP around 160 in the first 24 hours. proBNP 9634, up to ,/2 Echocardiogram to assess ejection fraction heart structure Lasix 10 mg IV on 02/28 and another dose 20 mg on 03/01 Chest x-ray 03/02 pulmonary edema, Lasix 40 mg IV Patient require BiPAP, consult pulmonary for comanagement RT to assess for home oxygen Sepsis; source is likely pulmonary Leukocytosis White count 18. Lactic acid 2.5. COVID/influenza negative. IV fluids initially then discontinued urine antigens, sputum culture, RVP. blood cultures x 2. MRSA PCR negative. urine culture negative so far ABX: Vancomycin, Zosyn. Initially, currently on azithro and rocephin status post discontinue vancomycin and Zosyn MADONNA on CKD stage III Creatinine admission 2.66. Baseline creatinine 1.9-2.5. Likely prerenal in the setting of DKA and sepsis. Avoid nephrotoxic agents as able. acute non-STEMI CAD Continue home aspirin, beta-deepali. EKG on 03/02 nonspecific changes Troponin was 200, troponin on 03/02 1300 Discontinue heparin subcu and start the patient on heparin drip Continue telemetry New echocardiogram to assess ejection fraction heart structure Consult cardiology, I spoke with Dr. Garay over the phone recommended 48 hours of IV heparin, agreeable with Lasix BPH Continue home Flomax PT OT Resolved acute medical issues Discharge Planning Patient Medically Ready for Discharge: no Patient requires continued hospitalization due to: IV antibiotic, blood pressure control, respiratory failure Expected Date of Discharge: 03/05 Expected Discharge Location: Home Quality Measures DVT Prophylaxis: heparin subcutaneous Henley Catheter: absent Code Status Full Code Primary Contact Information Subjective Feeling much better today, ,no SOB No fever, no chills , no chest pain Objective BP (!) 186/51 Pulse (!) 105 Temp 98.6 degrees F (37 degrees C) (Oral) Resp (!) 19 Ht 5' 7 Wt 64.1 kg (141 lb 5 oz) SpO2 95% BMI 22.13 kg/m Physical Examination General Appearance: alert; chronically ill appearing; in no acute distress HEENT: Head- normocephalic; Eyes- EOMI, sclera anicteric; Throat- mucous membranes moist Cardiovascular: regular rate and rhythm; normal S1, S2; no murmurs, rubs, clicks or gallops; peripheral edema 1+ Respiratory: lungs clear to auscultation; without wheezes, rales or rhonchi; on nasal cannula Abdomen: soft, non-tender, non-distended Neurological: oriented x 3; normal speech; no focal findings or movement disorder noted Musculoskeletal: no significant deformity or tenderness to palpation Skin: normal coloration Psych: normal mood and affect AUTHENTICATED BY BERNADETTE PARNELL ON 03/04/2025 11:10:58 [facility] 03-03-2025 [place] [facility] [place] Patient Name: Enoc Fernandes : 1945 Assessment and Plan Enoc Fernandes is a 79 y.o. male patient of Ryley Jeter MD with history of type I IDDM, hypertension, CAD, diastolic HF, dyslipidemia, COPD, CKD presented to [facility] on 02/28/2025 with shortness of breath. Assessment/plan DKA HAGMA Hyperkalemia T1DM Patient had ear tube inserted 2 days ago, his insulin dose was dropped to half prior to that. VBG with pH 7.29. AG 28, blood glucose 514, positive beta hydroxybutyrate. ' UA with glucosuria, ketones. DKA protocol, initially, DKA resolved, patient on Lantus and sliding scale coverage since 02/28 afternoon Hypertensive emergency Acute on chronic hypoxemic respiratory failure Pulmonary edema, possible acute diastolic heart failure due to hypertensive emergency Nicardipine drip. For few hours then discontinued resume home antihypertensives amlodipine, hydralazine, isosorbide, metoprolol except lisinopril due to kidney injury SBP reduction goal 25% and for 6 hours. Goal to keep SBP around 160 in the first 24 hours. proBNP 9634, up to ,/ Echocardiogram to assess ejection fraction heart structure Lasix 10 mg IV on 02/28 and another dose 20 mg on 03/01 Chest x-ray 03/02 pulmonary edema, Lasix 40 mg IV Patient require BiPAP, consult pulmonary for comanagement RT to assess for home oxygen Sepsis; source is likely pulmonary Leukocytosis White count 18. Lactic acid 2.5. COVID/influenza negative. IV fluids initially then discontinued urine antigens, sputum culture, RVP. blood cultures x 2. MRSA PCR negative. urine culture negative so far ABX: Vancomycin, Zosyn. Initially, currently on azithro and rocephin status post discontinue vancomycin and Zosyn MADONNA on CKD stage III Creatinine admission 2.66. Baseline creatinine 1.9-2.5. Likely prerenal in the setting of DKA and sepsis. Avoid nephrotoxic agents as able. Possible acute non-STEMI CAD Continue home aspirin, beta-deepali. EKG on 03/02 nonspecific changes Troponin was 200, troponin on 03/02 1300 Discontinue heparin subcu and start the patient on heparin drip Continue telemetry New echocardiogram to assess ejection fraction heart structure Consult cardiology, I spoke with Dr. Garay over the phone recommended 48 hours of IV heparin, agreeable with Lasix BPH Continue home Flomax PT OT Resolved acute medical issues Discharge Planning Patient Medically Ready for Discharge: no Patient requires continued hospitalization due to: IV antibiotic, blood pressure control, respiratory failure Expected Date of Discharge: 03/05 Expected Discharge Location: Home Quality Measures DVT Prophylaxis: heparin subcutaneous Henley Catheter: absent Code Status Full Code Primary Contact Information Subjective Feeling much better today, ,no SOB No fever, no chills , no chest pain Objective BP 99/64 Pulse 81 Temp 97.9 degrees F (36.6 degrees C) (Oral) Resp 16 Ht 5' 7 Wt 64.1 kg (141 lb 5 oz) SpO2 95% BMI 22.13 kg/m Physical Examination General Appearance: alert; chronically ill appearing; in no acute distress HEENT: Head- normocephalic; Eyes- EOMI, sclera anicteric; Throat- mucous membranes moist Cardiovascular: regular rate and rhythm; normal S1, S2; no murmurs, rubs, clicks or gallops; peripheral edema 1+ Respiratory: lungs clear to auscultation; without wheezes, rales or rhonchi; on nasal cannula Abdomen: soft, non-tender, non-distended Neurological: oriented x 3; normal speech; no focal findings or movement disorder noted Musculoskeletal: no significant deformity or tenderness to palpation Skin: normal coloration Psych: normal mood and affect AUTHENTICATED BY BERNADETTE PARNELL ON 03/03/2025 12:05:46 [facility] 03-03-2025 Note General Cardiology I npatient Follow-up Heart & Vascular [facility] 03/03/2025 Aparna Browne, LAUNCH OPERATOR [facility] Patient: Enoc Fernandes Date of : 1945 (79 y.o.) PCP: Ryley Jeter MD Primary chief of pediatric urology: Assessment/Plan: Enoc Fernandes is a 79 y.o. male with history of heart failure with reduced ejection fraction with recovery of LVEF, coronary artery disease not amenable to PCI or open heart surgery, insulin-dependent diabetes, history of tobacco use, peripheral vascular disease, CKD, hypertension, and hyperlipidemia who presented to the hospital on 02/28/2025 with shortness of breath. Patient was found to be in DKA. He also was found to have pulmonary edema and heart failure with hypertensive urgency. There is also concerns for sepsis. Cardiology has not been consulted for an elevated troponin/NSTEMI. Acute on chronic heart failure with reduced ejection fraction with recovery of LVEF on most recent echocardiogram in October 2024 Heart failure was likely exacerbated by volume resuscitation for DKA and infection. Documentation reflects urine output of 600 mL in the last 24 hours patient is net -310 mL of note no intake was charted for the last 24 hours. Continue IV lasix 20 mg bid. Continue metoprolol succinate 25 daily. No PASCALE ARB or Arni given elevated creatinine Daily weight, strict intake and output Elevated troponin/NSTEMI likely type II NSTEMI from demand ischemia. Patient has known coronary artery disease. Patient was not amenable to PCI and was felt to be high risk for open heart surgery. Elevated troponin/demand is likely related to heart failure exacerbation at the current time. Patient denies having any episodes of chest pain. Agree with IV heparin therapy for 48 hours from peak troponin. Trend troponin to peak. Continue aspirin 81 mg daily, Zetia 10 mg daily, metoprolol as above. Continue Imdur 30 mg daily Subjective Patient seen at bedside he is anxious to go home. He denies shortness of breath, chest pain or dizziness Telemetry independently reviewed: Atrial fibrillation with PVCs ECG 12 Lead Final Result by Conchita Fulton MD (02/28/2025 0433) Echocardiogram complete Final Result by Woo Grigsby MD (03/02/2025 1603) Cardiac Catheterization Final Result by Elías Rodriguez MD (10/27/2024 0952) Review of Systems: The following system(s) were reviewed and negative. Pertinent positive and negative findings are noted in the HPI. [x] Const [x] Eyes [x] ENT [x] Resp [] CV [x] GI [x] [x] Neuro [x] Musc [x] Skin [x] Psych [x] Endo [x] Allergy [x] Heme/Lymph Current Medications[1] Objective: Physical Examination: BP 99/64 Pulse 81 Temp 97.9 degrees F (36.6 degrees C) (Oral) Resp 16 Ht 5' 7 Wt 64.1 kg (141 lb 5 oz) SpO2 95% BMI 22.13 kg/m Constitutional: Alert, not in distress.? Eyes: Conjunctivae/corneas clear. Lungs: Clear to auscultation, no wheezes, rales or rhonchi. Cardiovascular: Controlled rate and regular rhythm, S1 and S2 normal, no murmurs noted, no pedal edema, no JVD. Abdomen: Soft, nontender with normal active bowel sounds Skin: Normal coloration and turgor; no rashes or lesions noted to exposed skin. Musculoskeletal: Moves all extremities Psych: Oriented to time, person, and place; appropriate mood. Lab Results Component Value Date CHOL 130 11/27/2023 LDLCALC 61 11/27/2023 TRIG 67 11/27/2023 HDL 56 11/27/2023 Serum creatinine: 2.09 mg/dL (H) 03/03/25 0040 Estimated creatinine clearance: 25.1 mL/min (A) Please excuse any typographical errors as dictation software was used Aparna Browne MSN, [employer], ANP-C [1] Current Facility-Administered Medications Medication Dose Route Frequency Provider Last Rate Last Admin acetaminophen (TYLENOL) tablet 650 mg 650 mg Oral Q4H PRN Delma Vasquez PA-C 650 mg at 03/01/25 0018 amLODIPine (NORVASC) tablet 10 mg 10 mg Oral Daily Jess Rasheed MD 10 mg at 03/02/25 0823 aspirin EC tablet 81 mg 81 mg Oral Daily Jess Rasheed MD 81 mg at 03/03/25 0912 azithromycin (ZITHROMAX) 500 mg in sodium chloride (NS) 0.9% 250 mL (vialmate) 500 mg Intravenous Q24H Pema Muñoz MD 250 mL/hr at 03/02/25 1712 500 mg at 03/02/25 1712 cefTRIAXone (ROCEPHIN) IVPB 2 g (premix) 2,000 mg Intravenous Q24H Pema Muñoz MD 100 mL/hr at 03/02/25 1623 2,000 mg at 03/02/25 1623 docusate sodium (COLACE) capsule 100 mg 100 mg Oral Daily Jess Rasheed MD 100 mg at 03/02/25 0823 ezetimibe (ZETIA) tablet 10 mg 10 mg Oral Daily Jess Rasheed MD 10 mg at 03/03/25 0912 furosemide (LASIX) injection 20 mg 20 mg Intravenous BID Pema Muñzo MD 20 mg at 03/03/25 0913 heparin (porcine) 25,000 unit/250 mL(100 unit/mL) in D5W infusion 0-70 Units/kg/hr Intravenous Continuous Pema Muñoz MD 9 mL/hr at 03/03/25 0945 14 Units/kg/hr at 03/03/25 0945 heparin bolus from bag 0-5,000 Units 0-5,000 Units Intravenous Con (more content not included)... [facility] 03-02-2025 [place] [facility] [place] Patient Name: Enoc Fernandes : 1945 Assessment and Plan Enoc Fernandes is a 79 y.o. male patient of Ryley Jeter MD with history of type I IDDM, hypertension, CAD, diastolic HF, dyslipidemia, COPD, CKD presented to [facility] on 02/28/2025 with shortness of breath. Assessment/plan DKA HAGMA Hyperkalemia T1DM Patient had ear tube inserted 2 days ago, his insulin dose was dropped to half prior to that. VBG with pH 7.29. AG 28, blood glucose 514, positive beta hydroxybutyrate. UA with glucosuria, ketones. NPO DKA protocol; insulin drip, half NS at lower dose 100 cc/h in the light of pulmonary edema. Transition to insulin basal bolus regimen with correctional as soon as anion gap closes. Lantus 15 units subcu 02/28 DKA resolved, patient on Lantus and sliding scale coverage since 02/28 afternoon Hypertensive emergency Acute on chronic hypoxemic respiratory failure Pulmonary edema, possible acute diastolic heart failure due to hypertensive emergency Nicardipine drip. For few hours then discontinued resume home antihypertensives amlodipine, hydralazine, isosorbide, metoprolol except lisinopril due to kidney injury SBP reduction goal 25% and for 6 hours. Goal to keep SBP around 160 in the first 24 hours. proBNP 9634, up to 23,005/2 Echocardiogram to assess ejection fraction heart structure Lasix 10 mg IV on 02/28 and another dose 20 mg on 03/01 Chest x-ray 03/02 pulmonary edema, Lasix 40 mg IV Patient require BiPAP, consult pulmonary for comanagement RT to assess for home oxygen Sepsis; source is likely pulmonary Leukocytosis White count 18. Lactic acid 2.5. COVID/influenza negative. IV fluids initially then discontinued urine antigens, sputum culture, RVP. blood cultures x 2. MRSA PCR negative. urine culture negative so far ABX: Vancomycin, Zosyn. Initially, currently on azithro and roephin status post discontinue vancomycin and Zosyn MADONNA on CKD stage III Creatinine admission 2.66. Baseline creatinine 1.9-2.5. Likely prerenal in the setting of DKA and sepsis. Avoid nephrotoxic agents as able. Possible acute non-STEMI CAD Continue home aspirin, beta-deepali. EKG on 03/02 nonspecific changes Troponin was 200, troponin on 03/02 1300 Discontinue heparin subcu and start the patient on heparin drip Continue telemetry New echocardiogram to assess ejection fraction heart structure Consult cardiology, I spoke with Dr. Garay over the phone recommended 48 hours of IV heparin, agreeable with Lasix BPH Continue home Flomax PT OT Critical care time provided was 35 minutes Resolved acute medical issues Discharge Planning Patient Medically Ready for Discharge: no Patient requires continued hospitalization due to: IV antibiotic, blood pressure control, respiratory failure Expected Date of Discharge: 03/05 Expected Discharge Location: Home Quality Measures DVT Prophylaxis: heparin subcutaneous Henley Catheter: absent Code Status Full Code Primary Contact Information Subjective Patient oxygen has dropped over the last few hours required BiPAP, associated with shortness of breath and generalized weakness, low-grade fever 100, not associated with chest pain, nausea or cough Objective BP (!) 183/75 (BP Location: Left arm, Patient Position: Lying) Pulse 99 Temp 99 degrees F (37.2 degrees C) (Oral) Resp 17 Ht 5' 7 Wt 64.1 kg (141 lb 5 oz) SpO2 91% BMI 22.13 kg/m Physical Examination General Appearance: alert; chronically ill appearing; in no acute distress HEENT: Head- normocephalic; Eyes- EOMI, sclera anicteric; Throat- mucous membranes moist Cardiovascular: regular rate and rhythm; normal S1, S2; no murmurs, rubs, clicks or gallops; peripheral edema 1+ Respiratory: lungs clear to auscultation; without wheezes, rales or rhonchi; on nasal cannula Abdomen: soft, non-tender, non-distended Neurological: oriented x 3; normal speech; no focal findings or movement disorder noted Musculoskeletal: no significant deformity or tenderness to palpation Skin: normal coloration Psych: normal mood and affect AUTHENTICATED BY PEMA MUÑOZ, ON 03/02/2025 13:48:04 [facility] 03-01-2025 Note HMS PROGRESS NOTE Patient Name: Enoc Fernandes : 1945 Assessment and Plan Enoc Fernandes is a 79 y.o. male patient of Ryley Jeter MD with history of type I IDDM, hypertension, CAD, diastolic HF, dyslipidemia, COPD, CKD presented to [facility] on 02/28/2025 with shortness of breath. Assessment/plan DKA HAGMA Hyperkalemia T1DM Patient had ear tube inserted 2 days ago, his insulin dose was dropped to half prior to that. VBG with pH 7.29. AG 28, blood glucose 514, positive beta hydroxybutyrate. UA with glucosuria, ketones. NPO DKA protocol; insulin drip, half NS at lower dose 100 cc/h in the light of pulmonary edema. Transition to insulin basal bolus regimen with correctional as soon as anion gap closes. Lantus 15 units subcu 02/28 DKA resolved, patient on Lantus and sliding scale coverage since 02/28 afternoon Hypertensive emergency Acute on chronic hypoxemic respiratory failure Pulmonary edema Nicardipine drip. For few hours then discontinued resume home antihypertensives amlodipine, hydralazine, isosorbide, metoprolol except lisinopril due to kidney injury SBP reduction goal 25% and for 6 hours. Goal to keep SBP around 160 in the first 24 hours. proBNP 9634 Echocardiogram to assess ejection fraction heart structure Lasix 10 mg IV on 02/28 and another dose 20 mg on 03/01 RT to assess for home oxygen Sepsis; source is likely pulmonary Leukocytosis White count 18. Lactic acid 2.5. COVID/influenza negative. IV fluids as above. urine antigens, sputum culture, RVP. blood cultures x 2. MRSA PCR negative. urine culture negative so far ABX: Vancomycin, Zosyn. Initially, currently on azithro and roephin status post discontinue vancomycin and Zosyn MADONNA on CKD stage III Creatinine admission 2.66. Baseline creatinine 1.9-2.5. Likely prerenal in the setting of DKA and sepsis. Avoid nephrotoxic agents as able. CAD Continue home aspirin, beta-deepali. BPH Continue home Flomax PT OT Resolved acute medical issues Discharge Planning Patient Medically Ready for Discharge: no Patient requires continued hospitalization due to: IV antibiotic, blood pressure control Expected Date of Discharge: 03/02 Expected Discharge Location: Home Quality Measures DVT Prophylaxis: heparin subcutaneous Henley Catheter: absent Code Status Full Code Primary Contact Information Subjective Overall feeling better, less short of breath, denies any chest pain, abdominal pain, nausea, had fever spike 101.4 last night, no fever today Objective BP (!) 172/73 Pulse 90 Temp 98.4 degrees F (36.9 degrees C) (Oral) Resp (!) 19 Ht 5' 7 Wt 65.8 kg (145 lb) SpO2 92% BMI 22.71 kg/m Physical Examination General Appearance: alert; chronically ill appearing; in no acute distress HEENT: Head- normocephalic; Eyes- EOMI, sclera anicteric; Throat- mucous membranes moist Cardiovascular: regular rate and rhythm; normal S1, S2; no murmurs, rubs, clicks or gallops; peripheral edema 1+ Respiratory: lungs clear to auscultation; without wheezes, rales or rhonchi; on nasal cannula Abdomen: soft, non-tender, non-distended Neurological: oriented x 3; normal speech; no focal findings or movement disorder noted Musculoskeletal: no significant deformity or tenderness to palpation Skin: normal coloration Psych: normal mood and affect AUTHENTICATED BY PEMA MUÑOZ, ON 03/01/2025 12:52:52 [facility] 02-28-2025 Note HMS PROGRESS NOTE Patient Name: Enoc Fernandes : 1945 Assessment and Plan Enoc Fernandes is a 79 y.o. male patient of Ryley Jeter MD with history of type I IDDM, hypertension, CAD, diastolic HF, dyslipidemia, COPD, CKD presented to [facility] on 02/28/2025 with shortness of breath. Assessment/plan DKA HAGMA Hyperkalemia T1DM Patient had ear tube inserted 2 days ago, his insulin dose was dropped to half prior to that. VBG with pH 7.29. AG 28, blood glucose 514, positive beta hydroxybutyrate. UA with glucosuria, ketones. NPO Start DKA protocol; insulin drip, half NS at lower dose 100 cc/h in the light of pulmonary edema. DKA labs every 4 hours. Transition to insulin basal bolus regimen with correctional as soon as anion gap closes. Lantus 15 units subcu 02/28 Hypertensive emergency Acute on chronic hypoxemic respiratory failure Pulmonary edema Nicardipine drip. For few hours then discontinued resume home antihypertensives amlodipine, hydralazine, isosorbide, metoprolol except lisinopril due to kidney injury SBP reduction goal 25% and for 6 hours. Goal to keep SBP around 160 in the first 24 hours. Check proBNP Echocardiogram to assess ejection fraction heart structure Lasix 10 mg IV once/30 Sepsis; source is likely pulmonary Leukocytosis White count 18. Lactic acid 2.5. COVID/influenza negative. IV fluids as above. urine antigens, sputum culture, RVP. Follow-up blood cultures x 2. MRSA PCR. Follow-up urine culture negative so far ABX: Vancomycin, Zosyn. De-escalate accordingly MADONNA on CKD stage III Creatinine admission 2.66. Baseline creatinine 1.9-2.5. Likely prerenal in the setting of DKA and sepsis. Avoid nephrotoxic agents as able. CAD Continue home aspirin, beta-deepali. BPH Continue home Flomax Resolved acute medical issues Discharge Planning Patient Medically Ready for Discharge: no Patient requires continued hospitalization due to: DKA, echocardiogram, better blood pressure control Expected Date of Discharge: 03/02 Expected Discharge Location: Home Quality Measures DVT Prophylaxis: heparin subcutaneous Henley Catheter: absent Code Status Full Code Primary Contact Information Subjective Patient still have shortness of breath but slightly feeling better, denies any pain, nausea, constipation, diarrhea or burning during urination Objective BP (!) 149/51 Pulse 83 Temp 98.6 degrees F (37 degrees C) (Oral) Resp 17 Ht 5' 7 Wt 65.8 kg (145 lb) SpO2 90% BMI 22.71 kg/m Physical Examination General Appearance: alert; chronically ill appearing; in no acute distress HEENT: Head- normocephalic; Eyes- EOMI, sclera anicteric; Throat- mucous membranes moist Cardiovascular: regular rate and rhythm; normal S1, S2; no murmurs, rubs, clicks or gallops; peripheral edema 1+ Respiratory: lungs clear to auscultation; without wheezes, rales or rhonchi; on nasal cannula Abdomen: soft, non-tender, non-distended Neurological: oriented x 3; normal speech; no focal findings or movement disorder noted Musculoskeletal: no significant deformity or tenderness to palpation Skin: normal coloration Psych: normal mood and affect AUTHENTICATED BY PEMA MUÑOZ, ON 02/28/2025 13:04:55 [facility] 02-28-2025 Note HMS HISTORY AND PHYS ICAL -- [facility] Patient Name: Enoc Fernandes : 1945 MR #: [id number] Admit Date: 02/28/2025 Physicians: Ryley Jeter MD (Family); No ref. provider found (Referring) Enoc Fernandes is a 79 y.o. male patient of Ryley Jeter MD with history of type I IDDM, hypertension, CAD, diastolic HF, dyslipidemia, COPD, CKD presented to [facility] on 02/28/2025 with shortness of breath. Assessment/plan DKA HAGMA Hyperkalemia T1DM Patient had ear tube inserted 2 days ago, his insulin dose was dropped to half prior to that. VBG with pH 7.29. AG 28, blood glucose 514, positive beta hydroxybutyrate. UA with glucosuria, ketones. NPO Start DKA protocol; insulin drip, half NS at lower dose 100 cc/h in the light of pulmonary edema. DKA labs every 4 hours. Transition to insulin basal bolus regimen with correctional as soon as anion gap closes. Hypertensive emergency Acute hypoxemic respiratory failure Pulmonary edema Nicardipine drip. Resume home antihypertensives except lisinopril in the a.m. SBP reduction goal 25% and for 6 hours. Goal to keep SBP around 160 in the first 24 hours. Start BiPAP to help reduce transmural pressure. If respiratory status worsen then we will start diuresis with Lasix. Sepsis; source is likely pulmonary Leukocytosis White count 18. Lactic acid 2.5. COVID/influenza negative. IV fluids as above. Follow-up pneumonia workup; urine antigens, sputum culture, RVP. Follow-up blood cultures x 2. Follow-up MRSA PCR. Follow-up urine culture ABX: Vancomycin, Zosyn. De-escalate accordingly MADONNA on CKD Creatinine admission 2.66. Baseline creatinine 1.9-2.5. Likely prerenal in the setting of DKA and sepsis. Avoid nephrotoxic agents as able. CAD Continue home aspirin, beta-deepali. BPH Continue home Flomax Residence prior to admission: house or apartment Was patient transferred from outlying hospital or ED no Quality Measures DVT Prophylaxis: heparin subcutaneous Henley Catheter: absent Medication Reconciliation: Verified Admitted with these risk variables:Acute Kidney Injury and Acidosis. Please see assessment and plan for further details. Estimated Date of Discharge greater than 2 midnights Code Status Full Code; code status verified on 02/28/2025 with patient (capacity intact) Chief Complaint shortness of breath History of Present Illness Enoc Fernandes is a 79 y.o. male patient of Ryley Jeter MD with history of type I IDDM, hypertension, CAD, diastolic HF, dyslipidemia, COPD, CKD presented to [facility] on 02/28/2025 with shortness of breath. Patient presented to hospital with a complaint of shortness of breath. History obtained from patient, spouse and daughter at bedside. As per patient daughter he had ear tube placed 2 days ago, his insulin dosing was dropped to half the day prior and his glucose was running high. Patient states that his shortness of breath started 2 days ago. Denies any concurrent chest pain. His breathing is slightly better with nasal cannula but still feels short of breath. 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 Tobacco abuse Past Surgical History Past Surgical History: Procedure Laterality Date CATARACT EXT/ECCE Bilateral 12/2012,07/2014 RI CATH PLMT L HRT & ARTS W/NJX & ANGIO IMG S&I N/A 10/27/2024 Procedure: Coronary Angiogram; Surgeon: Elías Rodriguez MD; Location: [facility]; Service: Cardiovascular RI CATH PLMT L HRT & ARTS W/NJX & ANGIO IMG S&I N/A 10/27/2024 Procedure: Left Heart Cath; Surgeon: Elías Rodriguez MD; Location: [facility]; Service: Cardiovascular SKIN CANCER EXCISION 09/2021 L ear Family History Family History Problem Relation Age of Onset Coronary artery disease Father Alzheimer's disease Father Social History Tobacco Use History[1] Social History Substance and Sexual Activity Alcohol Use No Alcohol/week: 0.0 standard drinks of alcohol Social History Substance and Sexual Activity Drug Use No Allergy Information I have reviewed the patient's allergies. [id number] reductase inhibitors Home Medications Home medications were reviewed. Review Of Systems All relevant systems have been reviewed and are negative except as noted in HPI or below Physical Examination BP (!) 194/62 Pulse 97 Temp 97.8 degrees F (36.6 degrees C) (Oral) Resp (!) 22 Ht 5' 7 Wt 65.8 (more content not included)... [facility] 02-26-2025 History of Present illness Narrative Subjective He has been measuring BP at home and has been 120/70 Right now has ear congestion. Patient ID: Enoc Fernandes is a 79 y.o. male who presents for Follow-up (6 months/Review labs ). HPI He is here for follow-up secondary to chronic kidney disease with underlying type 1 diabetes as well as systolic congestive heart failure He did have a recent hospitalization back in October. At that time he was on an insulin drip His last hemoglobin A1c is 7.4 Rest of labs obtained on February 12 show a urine albumin creatinine ratio of 125 metabolic panel shows a BUN of 38 a creatinine of 1.8 with estimated GFR of 37 with the rest of his electrolytes looking unremarkable blood pressure is elevated here in the office at 158/68 on multiple blood pressure medications He does follow with endocrinology Review of Systems Constitutional: Negative. HENT: Positive for ear pain. Eyes: Negative. Respiratory: Negative. Cardiovascular: Negative. Gastrointestinal: Negative. Endocrine: Negative. Genitourinary: Negative. Musculoskeletal: Negative. Skin: Negative. Allergic/Immunologic: Negative. Neurological: Negative. Hematological: Negative. Psychiatric/Behavioral: Negative. Objective Physical Exam Constitutional: Appearance: Normal appearance. [...] Type 1 diabetes mellitus with diabetic neuropathy E10.40 CKD (chronic kidney disease) - Primary N18.9 Relevant Orders Follow Up In Nephrology Basic metabolic panel Plan: Renal function is stable BP high here but at home consistently 120/70. Goal < 130/80. Would benefit from SGLT2. Will defer to Endocrinology Continue as he is on. F/U in 6 months. Chronic kidney disease stage III appears with baseline creatinine about 1.6-1.9 Diabetes mellitus Type I Hypertension Nicotine abuse Systolic congestive heart failure with ejection fraction of 35% Global hypokinesia of the left ventricle Microalbuminuria Ayanna Albert DO 02/26/25 1:17 PM documented in this encounter [facility] Work Phone: 02-14-2025 History of Present illness Narrative Refaxed letter written on 01/18/[address] Grigsby to [facility]. documented in this encounter [facility] 11-14-2024 Instructions Luisa Easley RN - 11/14/2024 11:36 AM EST How to Contact your Care Team: Provider: Dr. Woo Grigsby MD Clinic Nurse: FIDEL Moran Clinic MA: SUSAN Pagan REFILLS: When in need for refills please call your care team or the office at [phone]. Please include medication name, pharmacy name, and specify 30-day or 90-day supply. Please check with your pharmacy within 24 hours of request for your refill. You must follow up as directed to continue current refills. Thank you! documented in this encounter [facility] 11-14-2024 History of Present illness Narrative General Cardiology New Patient Clinic Consult [facility] 11/14/2024 Woo Grigsby MD [address] [place] [phone] Patient: Enoc Fernandes Date of : 1945 (78 y.o.) PCP: Ryley Jeter MD Date of Service: 11/14/2024 Chief Complaint: Follow-up Assessment and Plan: 1. Coronary 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shinnecock coronary artery of shinnecock heart without angina pectoris (Primary) Patient underwent left heart catheterization with multivessel coronary artery disease 10/27/2024 Multivessel coronary disease Currently not having any symptoms of angina, ejection fraction preserved Would be high risk PCI, not a CABG candidate due to multiple comorbidities including peripheral vascular disease, frailty, diabetes For now continue Imdur, patient is agreeable to restarting Zetia, lipid profile is within normal limits Continue metoprolol Sublingual nitroglycerin as needed 2. Claudication in peripheral vascular disease Patient with moderate peripheral vascular disease by ERIN, also having some left arm heaviness if he raises it over his head, some evidence of left subclavian stenosis He will be following up with Dr. Parker in the near future, we will intensify therapy by adding Zetia 3. Bilateral carotid artery stenosis As above It has been a pleasure caring for this patient. Please don't hesitate to reach out to my office directly with any questions or concerns. Follow-up: Return in about 6 months (around 05/14/2025). Woo Grigsby MD, [facility] Non-Invasive Cardiology [facility] P:[phone] F:[phone] History of Present Illness: Enoc Fernandes is a 78 y.o. man with a past medical history of insulin-dependent diabetes for 30 years, history of tobacco use, recent COVID infection with systolic dysfunction ejection fraction ranging from 35 to 45% who presented initially to community health care. He underwent stress testing which showed inferior wall abnormality as well as ejection fraction of 50%. I initially met with him back in January 2024 and he was doing quite well, however he presented in October with symptoms of fatigue, malaise, flash pulmonary edema and hypertensive emergency with reduced ejection fraction at [facility]. Left heart catheterization was ultimately recommended which demonstrated multivessel coronary artery disease. He had also been complaining of upper and lower extremity heaviness, and he has since been diagnosed with peripheral vascular disease. He presents today after left heart catheterization, consultation with CT surgery and vascular surgery to review all of the findings. He has actually improved and his functional capacity, is able to do all of his activities of daily living except he does get some left arm heaviness if he brushes his hair. He denies any orthopnea or paroxysmal nocturnal dyspnea, stable lower extremity heaviness with exertion Objective Review of Systems: All systems were reviewed and are noted to be negative unless otherwise stated in HPI. 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 Tobacco abuse Past Surgical History: Procedure Laterality Date CATARACT EXT/ECCE Bilateral 12/2012,07/2014 RI CATH PLMT L HRT & ARTS W/NJX & ANGIO IMG S&I N/A 10/27/2024 Procedure: Coronary Angiogram; Surgeon: Elías Rodriguez MD; Location: [facility]; Service: Cardiovascular RI CATH PLMT L HRT & ARTS W/NJX & ANGIO IMG S&I N/A 10/27/2024 Procedure: Left Heart Cath; Surgeon: Elías Rodriguez MD; Location: [facility]; Service: Cardiovascular SKIN CANCER EXCISION 09/2021 L ear Family History Problem Relation Age of Onset Coronary artery disease Father Alzheimer's disease Father Social History Tobacco Use Smoking Status Every Day Current packs/day: 0.50 Average packs/day: 0.5 packs/day for 61.0 years (30.5 ttl pk-yrs) Types: Cigarettes Start date: 1963 Smokeless Tobacco Never Allergies: Bqqaqrn-xpm-cen reductase inhibitors All of the information has [...] mg total) by mouth daily ., Disp: 90 tablet, Rfl: 3 aspirin 81 MG EC tablet, Take 1 (one) tablet (81 mg total) by mouth daily ., Disp: , Rfl: blood sugar diagnostic (Contour Next Test Strips) strips, TEST BLOOD GLUCOSE FOUR TIMES DAILY E10.65 ., Disp: 150 strip, Rfl: 11 cefdinir (OMNICEF) 300 MG capsule, Take 1 (one) capsule (300 mg total) by mouth 2 (two) times a day ., Disp: , Rfl: furosemide (LASIX) 40 MG tablet, Take 1 (one) tablet (40 mg total) by mouth 2 (two) times a day . (Patient taking differently: Take 1 (one) tablet (40 mg total) by mouth daily .), Disp: 180 tablet, Rfl: 3 hydrALAZINE (APRESOLINE) 50 MG tablet, Take 1 (one) tablet (50 mg total) by mouth 2 (two) times a day ., Disp: 180 tablet, Rfl: 3 ibuprofen (ADVIL ORAL), Take by mouth ., Disp: , Rfl: insulin glargine (Basaglar KwikPen U-100 Insulin) 100 unit/mL (3 mL) InPn, Inject 18 (eighteen) Units under the skin nightly ., Disp: 15 mL, Rfl: 3 insulin lispro 100 unit/mL InPn, Use as directed 8 units before breakfast, 9 units before lunch, 8 units before dinner ., Disp: 15 mL, Rfl: 11 isosorbide mononitrate (IMDUR) 30 MG 24 hr tablet, Take 1 (one) tablet (30 mg total) by mouth daily ., Disp: 90 tablet, Rfl: 3 Klor-Con M20 20 mEq tablet, Take 1 (one) tablet (20 mEq total) by mouth daily ., Disp: , Rfl: lisinopriL (PRINIVIL,ZESTRIL) 5 MG tablet, Take 1 (one) tablet (5 mg total) by mouth daily ., Disp: 90 tablet, Rfl: 3 metoprolol succinate (TOPROL-XL) 25 MG 24 hr tablet, Take 1 (one) tablet (25 mg total) by mouth daily ., Disp: 90 tablet, Rfl: 3 OXYGEN-AIR DELIVERY SYSTEMS [facility], Inhale 2 L/min See Admin Instructions ., Disp: , Rfl: pen needle, diabetic (BD Ultra-Fine Jolynn Pen Needle) 32 gauge x 5/32 Ndle, Use as directed 4x daily Dx code E10.65 ., Disp: 400 each, Rfl: 4 predniSONE (DELTASONE) 20 MG tablet, Take 1 (one) tablet (20 mg total) by mouth For 5 days ., Disp: , Rfl: tamsulosin (FLOMAX) 0.4 mg capsule, Take 1 (one) capsule (0.4 mg total) by mouth daily ., Disp: 30 capsule, Rfl: 3 ezetimibe (Zetia) 10 mg tablet, Take 1 (one) tablet (10 mg total) by mouth daily ., Disp: 30 tablet, Rfl: 11 nitroGLYCERIN (Nitrostat) 0.4 MG SL tablet, Place 1 (one) tablet (0.4 mg total) under the tongue every 5 (five) minutes as needed for chest pain , if no relief after 3 doses call 911 ., Disp: 3 tablet, Rfl: 3 Physical Exam: BP (!) 185/61 (BP Location: Left arm, Patient Position: Sitting, BP Cuff Size: Adult) Pulse (!) 57 Ht 5' 7 Wt 68.3 kg (150 lb 8 oz) SpO2 96% BMI 23.57 kg/m Constitutional: Elderly male, no acute distress however appears malaised head: Normocephalic and atraumatic. Eyes: Conjunctivae are normal, no scleral icterus, no corneal arcus Neck: No acanthosis nigricans, no elevated jugular venous distension, no hepatojugular reflux Cardiovascular: Regular rate and rhythm, no murmurs appreciated on today's exam, normal S1 and S2, no rubs or gallops, PMI is midline Pulses: +1 dorsalis pedis pulses bilaterally, +1 radial pulses bilaterally Musculoskeletal: Normal range of motion. No cyanosis. No peripheral Edema Neurological: AOx3, moving all extremities normally Skin: Skin is warm and dry, normal hair pattern Psychiatric: Normal mood and affect, appropriate conversation Cardiovascular Studies: [facility] 2024 Echo 2023 Carotids 2024 Summary 1. Abnormal pharmacologic nuclear SPECT myocardial perfusion study. 2. No diagnostic ECG changes with regadenoson. 3. There is decreased radiotracer uptake within the basal-mid inferoseptal and distal anterior fuentes on stress imaging which is not present on rest imaging. This is suggestive of ischemia, but is not in a typical coronary distribution and may be in part due to a conduction abnormality. 4. Gated imaging demonstrates normal left ventricular size with septal hypokinesis and mild left ventricular systolic dysfunction, post-stress LVEF 50%, rest LVEF 51%. Conclusions * Right. * Less than 50% stenosis in the right internal carotid artery. * Percent stenosis may be underestimated due to calcific shadowing. * Right innominate artery is not well visualized due depth of vessel. * Elevated velocity suggestive of stenosis in the right subclavian and external carotid arteries. There are post stenotic waveforms noted in the distal subclavian artery. * No evidence of hemodynamically significant stenosis in the right common carotid artery, however abnormal waveforms are noted.. * Right vertebral artery is patent with antegrade flow, however, abnormal waveforms are noted. * Left. * 50-69% stenosis in the left internal carotid artery per strict lab criteria, however, velocities of 623 cm/s with calcification are noted. Based on dey scale and color doppler, greater than 70% stenosis is suggested. Unable to obtain end diastolic velocity. * Percent stenosis may be underestimated due to calcific shadowing. * Elevated velocities noted in the left subclavian artery, however with triphasic waveforms. * Elevated velocity suggestive of stenosis in the left external carotid artery. * No evidence of hemodynamically significant stenosis in the left common carotid artery. * Left vertebral artery is patent with antegrade flow, however elevated velocities were noted. Recommendations * There appears to be a tight stenosis of the left internal carotid artery at the carotid bifurcation associated with dense atherosclerotic plaque. Advanced carotid imaging appears to be warranted. Clinical correlation is advised. Impression: Multivessel complex calcified obstructive CAD involving LAD, RCA, and diagonal 2 Normal LVEDP Recommendations: Continue medical therapy Cardiothoracic surgery consult for possible CABG Routine post-cath care and IV hydration Summary 1. Normal LV chamber size. Normal wall thickness. Systolic function is normal with no regional wall motion abnormalities. Estimated ejection fraction of 60-65%. 2. Right ventricular size and systolic function are normal. 3. There is mild aortic valve regurgitation. 4. There is pulmonary hypertension, estimated right ventricle systolic pressure is 49 mmHg. Summary 1. Left ventricular chamber dimension is normal. 2. Left ventricular systolic function is normal with an ejection fraction by Biplane Method of Discs of 63 %. 3. The left ventricular diastolic function is grade I diastolic dysfunction, consistent with low or normal atrial pressures. Summary 1. Abnormal pharmacologic nuclear SPECT myocardial perfusion study. 2. No diagnostic ECG changes with regadenoson. 3. There is decreased radiotracer uptake within the basal-mid inferoseptal and distal anterior fuentes on stress imaging which is not present on rest imaging. This is suggestive of ischemia, but is not in a typical coronary distribution and may be in part due to a conduction abnormality. 4. Gated imaging demonstrates normal left ventricular size with septal hypokinesis and mild left ventricular systolic dysfunction, post-stress LVEF 50%, rest LVEF 51%. Echocardiogram 10/04/2024 showed normal systolic function with no regional wall motion abnormalities, renal arterial duplex was normal [facility]chocardiogram reviewed from [facility] [...] underestimated. Labs: Lab Results Component Value Date GLUCOSE 95 10/28/2024 CALCIUM 8.5 10/28/2024 NA 139 10/28/2024 K 4.1 10/28/2024 CL 108 10/28/2024 BUN 82 (H) 10/28/2024 CREATININE 2.31 (H) 10/28/2024 Lab Results Component Value Date ALT 13 10/27/2024 AST 12 10/27/2024 ALKPHOS 86 10/27/2024 BILITOT 0.3 10/27/2024 Lab Results Component Value Date WBC 10.25 10/28/2024 HGB 9.3 (L) 10/28/2024 HCT 29.0 (L) 10/28/2024 MCV 94.5 10/28/2024 EXTMCV 91 06/08/2022 PLT 188 10/28/2024 RBC 3.07 (L) 10/28/2024 Lab Results Component Value Date CHOL 130 11/27/2023 LDLCALC 61 11/27/2023 TRIG 67 11/27/2023 HDL 56 11/27/2023 Lab Results Component Value Date HGBA1C 9.9 (H) 10/27/2024 Lab Results Component Value Date ALT 13 10/27/2024 AST 12 10/27/2024 ALKPHOS 86 10/27/2024 BILITOT 0.3 10/27/2024 The ASCVD Risk score (Dasha DK, et al., 2019) failed to calculate for the following reasons: The 2019 ASCVD risk score is only valid for ages 40 to 79 Risk score cannot be calculated because patient has a medical history suggesting prior/existing ASCVD documented in this encounter [facility] 11-14-2024 Note General Cardiology N ew Patient Clinic Consult [facility], Heart & Vascular 11/14/2024 Woo Grigsby MD [address] [place] [phone] Patient: Enoc Fernandes Date of : 1945 (78 y.o.) PCP: Ryley Jeter MD Date of Service: 11/14/2024 Chief Complaint: Follow-up Assessment and Plan: 1. Coronary 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shinnecock coronary artery of shinnecock heart without angina pectoris (Primary) Patient underwent left heart catheterization with multivessel coronary artery disease 10/27/2024 Multivessel coronary disease Currently not having any symptoms of angina, ejection fraction preserved Would be high risk PCI, not a CABG candidate due to multiple comorbidities including peripheral vascular disease, frailty, diabetes For now continue Imdur, patient is agreeable to restarting Zetia, lipid profile is within normal limits Continue metoprolol Sublingual nitroglycerin as needed 2. Claudication in peripheral vascular disease Patient with moderate peripheral vascular disease by ERIN, also having some left arm heaviness if he raises it over his head, some evidence of left subclavian stenosis He will be following up with Dr. Parker in the near future, we will intensify therapy by adding Zetia 3. Bilateral carotid artery stenosis As above It has been a pleasure caring for this patient. Please don't hesitate to reach out to my office directly with any questions or concerns. Follow-up: Return in about 6 months (around 05/14/2025). Woo Grigsby MD, [facility] Non-Invasive Cardiology [facility] P:[phone] F:[phone] ---- History of Present Illness: Enoc Fernandes is a 78 y.o. man with a past medical history of insulin-dependent diabetes for 30 years, history of tobacco use, recent COVID infection with systolic dysfunction ejection fraction ranging from 35 to 45% who presented initially to community health care. He underwent stress testing which showed inferior wall abnormality as well as ejection fraction of 50%. I initially met with him back in January 2024 and he was doing quite well, however he presented in October with symptoms of fatigue, malaise, flash pulmonary edema and hypertensive emergency with reduced ejection fraction at [facility]. Left heart catheterization was ultimately recommended which demonstrated multivessel coronary artery disease. He had also been complaining of upper and lower extremity heaviness, and he has since been diagnosed with peripheral vascular disease. He presents today after left heart catheterization, consultation with CT surgery and vascular surgery to review all of the findings. He has actually improved and his functional capacity, is able to do all of his activities of daily living except he does get some left arm heaviness if he brushes his hair. He denies any orthopnea or paroxysmal nocturnal dyspnea, stable lower extremity heaviness with exertion Objective Review of Systems: All systems were reviewed and are noted to be negative unless otherwise stated in HPI. 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 Tobacco abuse Past Surgical History: Procedure Laterality Date CATARACT EXT/ECCE Bilateral 12/2012,07/2014 RI CATH PLMT L HRT & ARTS W/NJX & ANGIO IMG S&I N/A 10/27/2024 Procedure: Coronary Angiogram; Surgeon: Elías Rodriguez MD; Location: [facility]; Service: Cardiovascular RI CATH PLMT L HRT & ARTS W/NJX & ANGIO IMG S&I N/A 10/27/2024 Procedure: Left Heart Cath; Surgeon: Elías Rodriguez MD; Location: [facility]; Service: Cardiovascular SKIN CANCER EXCISION 09/2021 L ear Family History Problem Relation Age of Onset Coronary artery disease Father Alzheimer's disease Father Social History Tobacco Use Smoking Status Every Day Current packs/day: 0.50 Average packs/day: 0.5 packs/day for 61.0 years (30.5 ttl pk-yrs) Types: Cigarettes Start date: 1963 Smokeless Tobacco Never Allergies: Omzrwcg-iau-ieo reductase inhibitors All of the information has been reviewed at today's visit and modified if necessary. Home Medications: Current Outpatient Medications: acetaminophen (Tylenol Arthritis Pain) 650 MG CR tablet, Take 1 (one) tablet (650 mg total) by mouth every 8 (eight) hours as needed for pain ., (more content not included)... [facility] 11-13-2024 Note Patient ID: Enoc Fernandes is a 78 y.o. male Subjective: HPI: Enoc Fernandes presents for follow-up of Type 1 diabetes The initial diagnosis of diabetes was made 39 years ago in 1994. Disease course has been stable. Mr. Fernandes is a 78 y.o. male patient who presents the office for a follow-up of his type 1 diabetes. Patient's most recent hemoglobin A1c is 9.3%. Patient reports that he does follow a diabetic diet. His weight stable from his last visit with us. Complications from his diabetes includes neuropathy. He denies nephropathy or retinopathy. Hospitalized following cardiac cath October 2024, hyperglycemia and hyperkalemia required IV insulin gtt. . Hospitalized in [facility]. Reports URI symptoms with ear lockage. Pertinent negatives for diabetes include: no chest [...] Patient has been checking BG TID. Breakfast: 98-260 Lunch: - Supper: 66-332 Bedtime: 85-310 *Blood sugar records were brought with the patient to his appointment today and reviewed. Patient's weight is stable Patient is following a diabetic diet. Meal planning includes avoidance of concentrated sweets. An PASCALE inhibitor/angiotensin II receptor deepali is being taken. Patient does not see a javascript ui developer. Eye exam is current. Currently taking: No oral hypoglycemic medications Admelog insulin: 7 units at breakfast; 8 units at lunch; 8-9 units at supper Lantus insulin: 15 units at bedtime Outpatient Medications Marked as Taking for the 11/13/24 encounter (Office Visit) with Paty Ortega, TRISTAN: - acetaminophen (Tylenol Arthritis Pain) 650 MG CR tablet, Take 1 (one) tablet (650 mg total) by mouth every 8 (eight) hours as needed for pain . - amLODIPine (NORVASC) 10 MG tablet, Take 1 (one) tablet (10 mg total) by mouth daily . - aspirin 81 MG EC tablet, Take 1 (one) tablet (81 mg total) by mouth daily . - blood sugar diagnostic (Contour Next Test Strips) strips, TEST BLOOD GLUCOSE FOUR TIMES DAILY E10.65 . - furosemide (LASIX) 40 MG tablet, Take 1 (one) tablet (40 mg total) by mouth 2 (two) times a day . - hydrALAZINE (APRESOLINE) 50 MG tablet, Take 1 (one) tablet (50 mg total) by mouth 2 (two) times a day . - insulin glargine (Basaglar KwikPen U-100 Insulin) 100 unit/mL (3 mL) InPn, Inject 18 (eighteen) Units under the skin nightly . - insulin lispro 100 unit/mL InPn, Use as directed 8 units before breakfast, 9 units before lunch, 8 units before dinner . - isosorbide mononitrate (IMDUR) 30 MG 24 hr tablet, Take 1 (one) tablet (30 mg total) by mouth daily . - lisinopriL (PRINIVIL,ZESTRIL) 5 MG tablet, Take 1 (one) tablet (5 mg total) by mouth daily . - metoprolol succinate (TOPROL-XL) 25 MG 24 hr tablet, Take 1 (one) tablet (25 mg total) by mouth daily . - OXYGEN-AIR DELIVERY SYSTEMS [facility] Inhale 2 L/min See Admin Instructions . - pen needle, diabetic (BD Ultra-Fine Jolynn Pen Needle) 32 gauge x 5/32 Ndle, Use as directed 4x daily Dx code E10.65 . - tamsulosin (FLOMAX) 0.4 mg capsule, Take 1 (one) capsule (0.4 mg total) by mouth daily . Review of Systems: Review of Systems Constitutional: Positive for fatigue. Negative for appetite change and unexpected weight change. HENT: Positive for congestion, ear pain (pressure, full feeling on the left) and voice change. Eyes: Negative for visual disturbance. Respiratory: Negative for cough and shortness of breath. Cardiovascular: Negative for chest pain and leg swelling. Gastrointestinal: Negative for constipation, diarrhea, nausea and vomiting. Endocrine: Negative for polydipsia, polyphagia and polyuria. Genitourinary: Negative for frequency. Musculoskeletal: Positive for back pain. Hip pain Skin: Negative for wound. Neurological: Positive for weakness, numbness and headaches. Psychiatric/Behavioral: Negative for sleep disturbance. The following portions of the patient's history were reviewed and updated as appropriate: allergies, current medications, past family history, past medical history, past social history, past surgical history and problem list. Objective: BP (!) 107/51 Pulse 71 Wt 67.9 kg (149 lb 11.2 oz) BMI 23.45 kg/m Wt Readings from Last 3 Encounters: 11/13/24 67.9 kg (149 lb 11.2 oz) 11/09/24 67.1 kg (148 lb) 01 (more content not included)... [facility] 11-13-2024 History of Present illness Narrative Images from the original note were not included. Patient ID: Enoc Fernandes is a 78 y.o. male Subjective: HPI: Enoc Fernandes presents for follow-up of Type 1 diabetes The initial diagnosis of diabetes was made 39 years ago in 1994. Disease course has been stable. Mr. Fernandes is a 78 y.o. male patient who presents the office for a follow-up of his type 1 diabetes. Patient's most recent hemoglobin A1c is 9.3%. Patient reports that he does follow a diabetic diet. His weight stable from his last visit with us. Complications from his diabetes includes neuropathy. He denies nephropathy or retinopathy. Hospitalized following cardiac cath October 2024, hyperglycemia and hyperkalemia required IV insulin gtt. . Hospitalized in [facility]. Reports URI symptoms with ear lockage. Pertinent negatives for diabetes include: no chest [...] Patient has been checking BG TID. Breakfast: 98-260 Lunch: - Supper: 66-332 Bedtime: 85-310 *Blood sugar records were brought with the patient to his appointment today and reviewed. Patient's weight is stable Patient is following a diabetic diet. Meal planning includes avoidance of concentrated sweets. An PASCALE inhibitor/angiotensin II receptor deepali is being taken. Patient does not see a javascript ui developer. Eye exam is current. Currently taking: No oral hypoglycemic medications Admelog insulin: 7 units at breakfast; 8 units at lunch; 8-9 units at supper Lantus insulin: 15 units at bedtime Outpatient Medications Marked as Taking for the 11/13/24 encounter (Office Visit) with Paty Ortega CNP: acetaminophen (Tylenol Arthritis Pain) 650 MG CR tablet, Take 1 (one) tablet (650 mg total) by mouth every 8 (eight) hours as needed for pain . amLODIPine (NORVASC) 10 MG tablet, Take 1 (one) tablet (10 mg total) by mouth daily . aspirin 81 MG EC tablet, Take 1 (one) tablet (81 mg total) by mouth daily . blood sugar diagnostic (Contour Next Test Strips) strips, TEST BLOOD GLUCOSE FOUR TIMES DAILY E10.65 . furosemide (LASIX) 40 MG tablet, Take 1 (one) tablet (40 mg total) by mouth 2 (two) times a day . hydrALAZINE (APRESOLINE) 50 MG tablet, Take 1 (one) tablet (50 mg total) by mouth 2 (two) times a day . insulin glargine (Basaglar KwikPen U-100 Insulin) 100 unit/mL (3 mL) InPn, Inject 18 (eighteen) Units under the skin nightly . insulin lispro 100 unit/mL InPn, Use as directed 8 units before breakfast, 9 units before lunch, 8 units before dinner . isosorbide mononitrate (IMDUR) 30 MG 24 hr tablet, Take 1 (one) tablet (30 mg total) by mouth daily . lisinopriL (PRINIVIL,ZESTRIL) 5 MG tablet, Take 1 (one) tablet (5 mg total) by mouth daily . metoprolol succinate (TOPROL-XL) 25 MG 24 hr tablet, Take 1 (one) tablet (25 mg total) by mouth daily . OXYGEN-AIR DELIVERY SYSTEMS MISC, Inhale 2 L/min See Admin Instructions . pen needle, diabetic (BD Ultra-Fine Jolynn Pen Needle) 32 gauge x 5/32 Ndle, Use as directed 4x daily Dx code E10.65 . tamsulosin (FLOMAX) 0.4 mg capsule, Take 1 (one) capsule (0.4 mg total) by mouth daily . Review of Systems: Review of Systems Constitutional: Positive for fatigue. Negative for appetite change and unexpected weight change. HENT: Positive for congestion, ear pain (pressure, full feeling on the left) and voice change. Eyes: Negative for visual disturbance. Respiratory: Negative for cough and shortness of breath. Cardiovascular: Negative for chest pain and leg swelling. Gastrointestinal: Negative for constipation, diarrhea, nausea and vomiting. Endocrine: Negative for polydipsia, polyphagia and polyuria. Genitourinary: Negative for frequency. Musculoskeletal: Positive for back pain. Hip pain Skin: Negative for wound. Neurological: Positive for weakness, numbness and headaches. Psychiatric/Behavioral: Negative for sleep disturbance. The following portions of the patient's history were reviewed and updated as appropriate: allergies, current medications, past family history, past medical history, past social history, past surgical history and problem list. Objective: BP (!) 107/51 Pulse 71 Wt 67.9 kg (149 lb 11.2 oz) BMI 23.45 kg/m Wt Readings from Last 3 Encounters: 11/13/24 67.9 kg (149 lb 11.2 oz) 11/09/24 67.1 kg (148 lb) 11/07/24 66.7 kg (147 lb) Physical Exam: Physical Exam Vitals reviewed. Constitutional: Appearance: He is well-developed. HENT: Head: Normocephalic. Right Ear: There is impacted cerumen. Tympanic membrane is bulging (mild). Left Ear: Ear canal normal. Decreased hearing noted. A middle ear effusion is present. Tympanic membrane is bulging (mild). Eyes: General: No scleral icterus. Conjunctiva/sclera: Conjunctivae normal. Cardiovascular: Rate and Rhythm: Normal rate and regular rhythm. Heart sounds: Normal heart sounds. Pulmonary: Effort: Pulmonary effort is normal. Breath sounds: Normal breath sounds. Skin: General: Skin is warm and dry. Findings: No erythema. Neurological: Mental Status: He is alert and oriented to person, place, and time. Diabetic Foot Exam: Right Foot: warm, good capillary refill, PT reduced right, and reduced sensation at distal foot Left Foot: warm, good capillary refill, PT reduced left, and reduced sensation at distal foot. Lab Review 11/06/24: *labs reviewed 11/13/24 Hgb A1c: 9.3% Creat: 2.37; eGFR: 27 AST: 19; ALT: 19 K: 4.9 TSH: 2.65 ; FreeT4: 0.84 10/28/24: Creat: 2.44; eGFR: 26 07/07/24: Hgb A1c: 7.9% Creat: 1.61; eGFR: 43 AST: 13; ALT: 8 K: 4.0 CBC: WBC:7.9; Hgb: 13.6; Hct: 43.5; Plt: 260 TSH: 0.85 ; FreeT4: 1.01 02/07/24 Creat: 1.92; eGFR: 35 11/27/23 Hgb A1c: 7.5% TSH: 0.35 Tchol: 130; Tri; HDL: 56; LDL: 61 09/27/2023 Hemoglobin A1c 7.4% Sodium 143, potassium [...] found. Type 1 diabetes, under good control Enoc Titus Fernandes presents for follow-up of Type 1 diabetes Patient is currently managed with: Humalog insulin: 8-10 units at breakfast; 8-10 units at lunch; 8-10 units at supper; Lantus insulin: 14-15 units at bedtime . Most recent Hgb A1c is 7.9%. Reports occasional lows in the early AM and during the day. States if he is low in early AM, he often has visual blurring and his assists him with juice or other carb source. Typically eats a snack if BG <150 at HS. 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 Had bilat cataract extraction Dr. Lopez. Sees Dr. Browne in [place] every year routinely.Has blurred vision with low BG Nephropathy: Positive Creat: 2.37; eGFR: 27 11/06/24. Mialb/creat ratio:195 on 02/21, patient takes lisinopril. Follows with Dr. Albert at , last appointment 08/24, next appointment 02/26/25 at 1:30 PM. . Peripheral Neuropathy: Positive Reports bilateral numbness and [...] separate hydrochlorothiazide 12.5 mg tablet. BP: (!) 107/51; Cardiac: Positive Denies Chest pain or SOB at this time. Had cardiac cath October 2024. Multivessel complex calcified obstructive CAD involving LAD, RCA, and diagonal. May have to have stent in the future. History of CHF. Vascular: Negative ; has some mild edema. [...] lesions at this time. Last foot exam: 11/13/24 Thyroid: Negative 09/27/23 TSH 0.88, FT4--0.87 Other: [...] decided not to mess with that right now. Recheck PSA 3.14 Squamous cell Ca removed [...] falling in the bathtub summer 2022. Plan: No primary diagnosis found. 1. Rx changes: See insulin dose adjustments below Admelog insulin: 10-12 units at breakfast; 10-12 units at lunch; 10-12 units at supper Lantus insulin: 14-15 units at bedtime 2. Education: Reviewed ABCs of diabetes management (respective goals in parentheses): A1C (7.0-8.0), blood pressure (<130/80), and cholesterol (LDL <100). 3. Compliance at present is estimated to be good. Efforts to improve compliance (if necessary) will be directed at dietary modifications: Limit portion sizes, increased exercise and regular blood sugar monitorin times daily. 4. Follow up: 4-5 months 5. Record blood sugar readings as instructed. Call if BG consistently <70 or >250. [phone] Continue to check blood sugar 3 times [...] Comprehensive Metabolic Panel Hemoglobin A1c Lipid Panel TSH T4, Free Electronically Signed by: Paty Ortega CNP 11/13/24 1:21 PM documented in this encounter [facility] 11-09-2024 Evaluation + Plan note Associated Problem(s): Bilateral carotid artery stenosis Patient has evidence of high-grade left ICA stenosis. Based on prior carotid duplex in 2021, degree of stenosis was 50 to 69%. Based on most recent carotid duplex from October 2024, degree of stenosis is still 50 to 69%; however, there are markedly elevated velocities relative to the prior scan, and I am concerned that this duplex may underestimate the degree of carotid disease. That said, the patient is asymptomatic. He is on aspirin therapy, but is intolerant of statin with significant myalgias. Last lipids normal Given that the patient is deemed a poor candidate for open coronary revascularization and is reticent to pursue any sort of surgical or procedural intervention that carries risks, will continue to monitor carotid stenosis with repeat surveillance duplex in 6 months time Discussed warning signs of symptomatic carotid disease including amaurosis fugax, TIA, stroke symptoms. Patient and articulated understanding of these warning signs that warrant emergent medical attention. Ideally, the patient would be on a statin for plaque stabilization, but will defer at this time due to intolerance. Would be hard to make the argument for Nexletol in the setting of normal lipid profile. Should the next carotid duplex redemonstrate velocities in the 600s like this past one did, may recommend cerebral angiogram, which would be a lower dose of iodinated contrast than a CTA of the neck. Should there be significant carotid disease on cerebral angiogram, could consider simultaneous transfemoral carotid stenting versus recommendation for open surgical repair; however open repair would have to be performed in conjunction with coronary revascularization. [facility] 11-09-2024 Miscellaneous Notes Associated Problem(s): Bilateral carotid artery stenosis Patient has evidence of high-grade left ICA stenosis. Based on prior carotid duplex in 2021, degree of stenosis was 50 to 69%. Based on most recent carotid duplex from October 2024, degree of stenosis is still 50 to 69%; however, there are markedly elevated velocities relative to the prior scan, and I am concerned that this duplex may underestimate the degree of carotid disease. That said, the patient is asymptomatic. He is on aspirin therapy, but is intolerant of statin with significant myalgias. Last lipids normal Given that the patient is deemed a poor candidate for open coronary revascularization and is reticent to pursue any sort of surgical or procedural intervention that carries risks, will continue to monitor carotid stenosis with repeat surveillance duplex in 6 months time Discussed warning signs of symptomatic carotid disease including amaurosis fugax, TIA, stroke symptoms. Patient and articulated understanding of these warning signs that warrant emergent medical attention. Ideally, the patient would be on a statin for plaque stabilization, but will defer at this time due to intolerance. Would be hard to make the argument for Nexletol in the setting of normal lipid profile. Should the next carotid duplex redemonstrate velocities in the 600s like this past one did, may recommend cerebral angiogram, which would be a lower dose of iodinated contrast than a CTA of the neck. Should there be significant carotid disease on cerebral angiogram, could consider simultaneous transfemoral carotid stenting versus recommendation for open surgical repair; however open repair would have to be performed in conjunction with coronary revascularization. documented in this encounter [facility] 11-09-2024 Note OFFICE CONSULTATION NOTE [facility] [address] ([address]) [facility] [address] [facility] [id number] Physicians: Ryley Jeter MD (Family); Sandi Phan,* (Referring) Assessment & Plan: Bilateral carotid artery stenosis Patient has evidence of high-grade left ICA stenosis. Based on prior carotid duplex in 2021, degree of stenosis was 50 to 69%. Based on most recent carotid duplex from October 2024, degree of stenosis is still 50 to 69%; however, there are markedly elevated velocities relative to the prior scan, and I am concerned that this duplex may underestimate the degree of carotid disease. That said, the patient is asymptomatic. He is on aspirin therapy, but is intolerant of statin with significant myalgias. Last lipids normal Given that the patient is deemed a poor candidate for open coronary revascularization and is reticent to pursue any sort of surgical or procedural intervention that carries risks, will continue to monitor carotid stenosis with repeat surveillance duplex in 6 months time Discussed warning signs of symptomatic carotid disease including amaurosis fugax, TIA, stroke symptoms. Patient and articulated understanding of these warning signs that warrant emergent medical attention. Ideally, the patient would be on a statin for plaque stabilization, but will defer at this time due to intolerance. Would be hard to make the argument for Nexletol in the setting of normal lipid profile. Should the next carotid duplex redemonstrate velocities in the 600s like this past one did, may recommend cerebral angiogram, which would be a lower dose of iodinated contrast than a CTA of the neck. Should there be significant carotid disease on cerebral angiogram, could consider simultaneous transfemoral carotid stenting versus recommendation for open surgical repair; however open repair would have to be performed in conjunction with coronary revascularization. Follow Up Ordered: Return in about 6 months (around 05/09/2025) for Next scheduled follow up. Subjective: HPI: Enoc Fernandes is a 78 y.o. male with hypertension, hyperlipidemia, emphysema, type 1 diabetes, CKD 4, CHF, CAD, tobacco abuse disorder currently smoking cigarettes, referred to vascular surgery for evaluation of bilateral carotid artery stenosis. Patient underwent bilateral carotid duplex on 10/27/2024 as part of preprocedural cardiovascular examination ahead of possible coronary revascularization. Carotid duplex indicated no right ICA stenosis, but left 50 to 69% stenosis with possible underestimation of stenosis due to calcific shadowing. I personally read and interpreted the carotid duplex and felt that there was an area of calcification with a very elevated velocity concerning for a tighter stenosis than less than 70%. There is no recent or prior advanced carotid imaging. The patient has been deemed a high risk candidate for open coronary revascularization, and is being sent back to noninvasive and interventional cardiology for further management. The patient states that he has no real limitations at this point aside from leg issues related to low back problems. The patient is able to ambulate including up stairs without angina or shortness of breath. He is reticent to pursue any sort of aggressive procedures or operations given his medical comorbidities, and particularly his longstanding history of insulin-dependent diabetes and progressive chronic kidney disease. The patient denies symptoms of amaurosis fugax, TIA, or stroke. Specifically, the patient denies monocular vision loss, dysarthria, aphasia, facial droop, unilateral weakness or numbness, or other lateralizing symptoms. Patient is on aspirin but not on statin therapy. Patient has statin intolerance with significant myalgias related to statin therapy. Last lipids normal. Last creatinine 2.8. Imaging: I have independently reviewed the patient's imaging today, including carotid duplex from 10/27/2024, which I personally interpreted;. ABIs with segmental pressures from 10/27/2024 (right 0.81 with biphasic ankle waveforms, left 0.65 with monophasic ankle waveforms). I agree with the interpretation(s) with the following comments: Likely high-grade stenosis of the left ICA underestimated by carotid duplex, moderate PAD based on ABIs. 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 [facility] 11-09-2024 History of Present illness Narrative OFFICE CONSULTATION NOTE [facility] [address] ([address]) [facility] [address] [facility] [id number] Physicians: Ryley Jeter MD (Family); Sandi Phan,* (Referring) Assessment & Plan: Bilateral carotid artery stenosis Patient has evidence of high-grade left ICA stenosis. Based on prior carotid duplex in 2021, degree of stenosis was 50 to 69%. Based on most recent carotid duplex from October 2024, degree of stenosis is still 50 to 69%; however, there are markedly elevated velocities relative to the prior scan, and I am concerned that this duplex may underestimate the degree of carotid disease. That said, the patient is asymptomatic. He is on aspirin therapy, but is intolerant of statin with significant myalgias. Last lipids normal Given that the patient is deemed a poor candidate for open coronary revascularization and is reticent to pursue any sort of surgical or procedural intervention that carries risks, will continue to monitor carotid stenosis with repeat surveillance duplex in 6 months time Discussed warning signs of symptomatic carotid disease including amaurosis fugax, TIA, stroke symptoms. Patient and articulated understanding of these warning signs that warrant emergent medical attention. Ideally, the patient would be on a statin for plaque stabilization, but will defer at this time due to intolerance. Would be hard to make the argument for Nexletol in the setting of normal lipid profile. Should the next carotid duplex redemonstrate velocities in the 600s like this past one did, may recommend cerebral angiogram, which would be a lower dose of iodinated contrast than a CTA of the neck. Should there be significant carotid disease on cerebral angiogram, could consider simultaneous transfemoral carotid stenting versus recommendation for open surgical repair; however open repair would have to be performed in conjunction with coronary revascularization. Follow Up Ordered: Return in about 6 months (around 05/09/2025) for Next scheduled follow up. Subjective: HPI: Enoc Fernandes is a 78 y.o. male with hypertension, hyperlipidemia, emphysema, type 1 diabetes, CKD 4, CHF, CAD, tobacco abuse disorder currently smoking cigarettes, referred to vascular surgery for evaluation of bilateral carotid artery stenosis. Patient underwent bilateral carotid duplex on 10/27/2024 as part of preprocedural cardiovascular examination ahead of possible coronary revascularization. Carotid duplex indicated no right ICA stenosis, but left 50 to 69% stenosis with possible underestimation of stenosis due to calcific shadowing. I personally read and interpreted the carotid duplex and felt that there was an area of calcification with a very elevated velocity concerning for a tighter stenosis than less than 70%. There is no recent or prior advanced carotid imaging. The patient has been deemed a high risk candidate for open coronary revascularization, and is being sent back to noninvasive and interventional cardiology for further management. The patient states that he has no real limitations at this point aside from leg issues related to low back problems. The patient is able to ambulate including up stairs without angina or shortness of breath. He is reticent to pursue any sort of aggressive procedures or operations given his medical comorbidities, and particularly his longstanding history of insulin-dependent diabetes and progressive chronic kidney disease. The patient denies symptoms of amaurosis fugax, TIA, or stroke. Specifically, the patient denies monocular vision loss, dysarthria, aphasia, facial droop, unilateral weakness or numbness, or other lateralizing symptoms. Patient is on aspirin but not on statin therapy. Patient has statin intolerance with significant myalgias related to statin therapy. Last lipids normal. Last creatinine 2.8. Imaging: I have independently reviewed the patient's imaging today, including carotid duplex from 10/27/2024, which I personally interpreted;. ABIs with segmental pressures from 10/27/2024 (right 0.81 with biphasic ankle waveforms, left 0.65 with monophasic ankle waveforms). I agree with the interpretation(s) with the following comments: Likely high-grade stenosis of the left ICA underestimated by carotid duplex, moderate PAD based on ABIs. 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 Tobacco abuse Past Surgical History: Procedure Laterality Date CATARACT EXT/ECCE Bilateral 12/2012,07/2014 RI CATH PLMT L HRT & ARTS W/NJX & ANGIO IMG S&I N/A 10/27/2024 Procedure: Coronary Angiogram; Surgeon: Elías Rodriguez MD; Location: [facility]; Service: Cardiovascular RI CATH PLMT L HRT & ARTS W/NJX & ANGIO IMG S&I N/A 10/27/2024 Procedure: Left Heart Cath; Surgeon: Elías Rodriugez MD; Location: [facility]; Service: Cardiovascular SKIN CANCER EXCISION 09/2021 L ear Family History Problem Relation Age of Onset Coronary artery disease Father Alzheimer's disease Father Social History Tobacco Use Smoking status: Every Day Current packs/day: 0.50 Average packs/day: 0.5 packs/day for 61.0 years (30.5 ttl pk-yrs) Types: Cigarettes Start date: 1965 Smokeless tobacco: Never Vaping Use Vaping status: Never Used Substance Use Topics Alcohol use: No Alcohol/week: 0.0 standard drinks of alcohol Drug use: No Outpatient Medications as of 11/09/2024 Medication Sig acetaminophen (Tylenol Arthritis Pain) 650 MG CR tablet Take 1 (one) tablet (650 mg total) by mouth every 8 (eight) hours as needed for pain . amLODIPine (NORVASC) 10 MG tablet Take 1 (one) tablet (10 mg total) by mouth daily . aspirin 81 MG EC tablet Take 1 (one) tablet (81 mg total) by mouth daily . blood sugar diagnostic (Contour Next Test Strips) strips TEST BLOOD GLUCOSE FOUR TIMES DAILY E10.65 . furosemide (LASIX) 40 MG tablet Take 1 (one) tablet (40 mg total) by mouth 2 (two) times a day . (Patient taking differently: Take 1 (one) tablet (40 mg total) by mouth daily .) hydrALAZINE (APRESOLINE) 50 MG tablet Take 1 (one) tablet (50 mg total) by mouth 2 (two) times a day . insulin glargine (Basaglar KwikPen U-100 Insulin) 100 unit/mL (3 mL) InPn Inject 18 (eighteen) Units under the skin nightly . insulin lispro 100 unit/mL InPn Use as directed 8 units before breakfast, 9 units before lunch, 8 units before dinner . isosorbide mononitrate (IMDUR) 30 MG 24 hr tablet Take 1 (one) tablet (30 mg total) by mouth daily . Klor-Con M20 20 mEq tablet Take 1 (one) tablet (20 mEq total) by mouth daily . lisinopriL (PRINIVIL,ZESTRIL) 5 MG tablet Take 1 (one) tablet (5 mg total) by mouth daily . metoprolol succinate (TOPROL-XL) 25 MG 24 hr tablet Take 1 (one) tablet (25 mg total) by mouth daily . OXYGEN-AIR DELIVERY SYSTEMS MISC Inhale 2 L/min See Admin Instructions . pen needle, diabetic (BD Ultra-Fine Jolynn Pen Needle) 32 gauge x 5/32 Ndle Use as directed 4x daily Dx code E10.65 . tamsulosin (FLOMAX) 0.4 mg capsule Take 1 (one) capsule (0.4 mg total) by mouth daily . predniSONE (DELTASONE) 20 MG tablet Take 1 (one) tablet (20 mg total) by mouth For 5 days . (Patient not taking: Reported on 11/09/2024 .) Allergies Allergen Reactions Ydrspji-Uuh-Ugv Reductase Inhibitors Muscle cramps ROS Negative aside from what is documented in HPI/Interval History Overview of Problems Addressed: Problem Bilateral Carotid Artery Stenosis Objective: Physical Exam Vitals: Vitals: 11/09/24 1032 11/09/24 1042 BP: (!) 146/57 (!) 160/64 BP Location: Right arm Left arm Patient Position: Sitting Sitting Pulse: (!) 58 (!) 58 Weight: 67.1 kg (148 lb) Height: 5' 7 Body mass index is 23.18 kg/m . Physical Exam Vitals reviewed. Constitutional: General: Awake and alert. Normal appearance. Well-developed. HENT: Head: Normocephalic. Eyes: General: No asymmetry noted. Neck: Vascular: Left carotid bruit is present, right carotid either with bruit or referred murmur from heart. No JVD. Supple with good range of motion. Cardiovascular: Rate and Rhythm: Regular rate and rhythm Heart sounds: Patient has a systolic murmur Pulses: Palpable bilateral radial pulses, palpable bilateral femoral pulses Capillary refill: Brisk capillary refill in the bilateral feet at the level of the toes. Comments: No varicose veins in bilateral lower extremities. Pulmonary: Effort: Normal inspiratory effort on room air. Abdominal: General: Abdomen is soft and non-tender. No organomegaly, no pulsatile abdominal masses. No surgical scars. No hernias. Musculoskeletal: Spine: Neck supple with normal range of motion. Patient with low back support brace. Right Leg: Atraumatic, grossly normal strength and range of motion. Foot is warm. Left Leg: Atraumatic, grossly normal strength and range of motion. Foot is warm. Skin: General: Skin is warm and dry. Capillary Refill: Capillary refill takes less than 2 seconds. Neurological: General: No focal deficit present. Mental Status: Alert and oriented to person, place, and time. Motor: Motor function is grossly intact. Coordination: Coordination is intact. Gait: Antalgic gait. Patient walks with the support of a walking stick. Psychiatric: Attention and Perception: Attention and perception normal. Mood and Affect: Mood and affect normal. Speech: Speech normal. Behavior: Cooperative. Thought Content: No gross abnormalities. Judgment: Appropriate judgment. LABS/IMAGING: ERIN 10/27/2024 Conclusions * Right. * Right ankle brachial index indicates mild peripheral artery disease noted at the infrapopliteal level(s). ERIN is 0.81. * Moderate small vessel disease at the transmetatarsal level in the right foot. * Right toe brachial index is abnormal. TBI .27. * Left. * Left ankle brachial index indicates moderate peripheral artery disease noted at the iliofemoral level(s). ERIN is 0.65. * Moderate small vessel disease at the transmetatarsal level in the left foot. * Left toe brachial index is abnormal . TBI .28. Recommendations * The study indicates mild right leg arterial disease with an ERIN of 0.81, and moderate left leg arterial disease with an ERIN of 0.65. His right leg segmental pressures, Doppler waveforms and PVR waveforms suggest generalized atherosclerotic disease along the leg with strong biphasic waveform patterns. His left leg segmental pressures, Doppler waveforms and PVR waveforms suggest iliofemoral/femoral-popliteal stenotic or occlusive disease with moderately blunted and dampened biphasic patterns. Clinical correlation advised. Carotid Duplex 10/27/2024 Conclusions * Right. * Less than 50% stenosis in the right internal carotid artery. * Percent stenosis may be underestimated due to calcific shadowing. * Right innominate artery is not well visualized due depth of vessel. * Elevated velocity suggestive of stenosis in the right subclavian and external carotid arteries. There are post stenotic waveforms noted in the distal subclavian artery. * No evidence of hemodynamically significant stenosis in the right common carotid artery, however abnormal waveforms are noted.. * Right vertebral artery is patent with antegrade flow, however, abnormal waveforms are noted. * Left. * 50-69% stenosis in the left internal carotid artery per strict lab criteria, however, velocities of 623 cm/s with calcification are noted. Based on dey scale and color doppler, greater than 70% stenosis is suggested. Unable to obtain end diastolic velocity. * Percent stenosis may be underestimated due to calcific shadowing. * Elevated velocities noted in the left subclavian artery, however with triphasic waveforms. * Elevated velocity suggestive of stenosis in the left external carotid artery. * No evidence of hemodynamically significant stenosis in the left common carotid artery. * Left vertebral artery is patent with antegrade flow, however elevated velocities were noted. Recommendations * There appears to be a tight stenosis of the left internal carotid artery at the carotid bifurcation associated with dense atherosclerotic plaque. Advanced carotid imaging appears to be warranted. Clinical correlation is advised. ECG 12 Lead Sinus rhythm with Premature atrial complexes Nonspecific T wave abnormality Abnormal ECG Confirmed by Gerda URIBE Ginger ([id number]) on 10/30/2024 11:27:42 AM Cardiac Catheterization Impression: Multivessel complex calcified obstructive CAD involving LAD, RCA, and diagonal 2 Normal LVEDP Recommendations: Continue medical therapy Cardiothoracic surgery consult for possible CABG Routine post-cath care and IV hydration Lab Results Component Value Date WBC 10.25 10/28/2024 HGB 9.3 (L) 10/28/2024 HCT 29.0 (L) 10/28/2024 MCV 94.5 10/28/2024 EXTMCV 91 06/08/2022 PLT 188 10/28/2024 RBC 3.07 (L) 10/28/2024 Lab Results Component Value Date GLUCOSE 95 10/28/2024 CALCIUM 8.5 10/28/2024 NA 139 10/28/2024 K 4.1 10/28/2024 CL 108 10/28/2024 BUN 82 (H) 10/28/2024 CREATININE 2.31 (H) 10/28/2024 Lab Results Component Value Date HGBA1C 9.9 (H) 10/27/2024 Lab Results Component Value Date CHOL 130 11/27/2023 Lab Results Component Value Date HDL 56 11/27/2023 Lab Results Component Value Date LDLCALC 61 11/27/2023 Lab Results Component Value Date TRIG 67 11/27/2023 Lab Results Component Value Date CHOLHDL 2.3 11/27/2023 Kristy Parker MD documented in this encounter [facility] 11-09-2024 Instructions Yesenia Mcdaniel MA - 11/09/2024 10:32 AM EST How to contact your Care Team: Provider: MD Georgia Ludwig, TRISTAN Almonte, DOMINICK Clark Nurse: Chastity Rubio RN To reschedule office appointments call Scheduling [phone] In case of an emergency please call 911. When in need of refills please call the phone number listed above. Please include medication name, pharmacy name and specify 30 or 90 day supply Please check with your pharmacy within 24 hours of your request for refill. You must follow up as directed to continue current refills. Thank you! documented in this encounter [facility] 11-07-2024 Note Enoc Fernandes [id number] [email or web address] Brock Groves MD 11/07/24 Room/bed info not found Consultation No ref. provider found No chief complaint on file. History of Present Illness Mr. Enoc Fernandes is a 78-year-old male referred to our service after his cardiac cath performed by Dr. Rodriguez. The cardiac cath revealed 40% ostial left main, 85% mid LAD, 80% mid right. The patient also have disease in the second diagonal. He has been complaining of shortness of breath and fatigue which has been getting worse. Because of his shortness of breath he was referred to Dr. Grigsby who subsequently sent him for a cardiac cath. This patient have a long history of tobacco use for more than 30 years. The patient also reported a COVID infection and pneumonia. His past medical history is remarkable for arthritis, coronary artery disease, CHF, chronic kidney disease, diabetes, emphysema, hypertension, hypercholesterolemia, peripheral vascular disease, spinal stenosis and other comorbidities as listed in past medical history. He underwent stress test which revealed an inferior wall motion motion abnormality and EF of 50%. He also had an acute exacerbation of right heart failure which required admission to [facility] for hypertensive emergency and acute flash pulmonary edema. When Mr. Fernandes went to see Dr. Grigsby, he was complaining of lower extremity weakness, heaviness as well as bilateral arm weakness and chest pressure. During this evaluation, patient does not complain of chest pain or pressure. He only complains of some shortness of breath which he attributes to his long-term smoking. The patient was referred to our service for the evaluation of his multivessel coronary artery disease from cardiac surgery perspective. He comes today accompanied by his and daughter. Assessment and Plan this patient is a 78-year-old male with significant past medical history. He comes today to discuss his multivessel coronary artery disease from the cardiac surgery perspective. I have reviewed his presentation and his images, it is very concerning the amount of calcified plaques in the ascending aorta anteriorly and posteriorly as well as the arch and descending aorta. His STS risk stratification score varies from 10 to 14% operative mortality depending of the degree of his COPD. Patient requires oxygen as needed and at night. His morbidity and mortality is 39% according to the STS. This patient is definitely very high risk for elective coronary artery bypass grafting. He has almost a porcelain ascending aorta with most of the plaque burden in the posterior aspect of the ascending aorta which makes crossclamping dangerous. For the above reasons, I believe that other treatment options needs to be considered instead of surgical revascularization. Will be sending this patient back to Dr. Grigsby and Dr. Rodriguez to discuss the therapeutic approach for his multivessel coronary disease. Patient also needs evaluation by vascular surgery due to his coronary artery disease. Past Medical History: Diagnosis Date - Arthritis - CAD (coronary artery disease) - Carotid artery stenosis - CHF (congestive heart failure) ([facility]) - CKD (chronic kidney disease) stage 4, GFR 15-29 ml/min ([facility]) - Diabetes mellitus type 1 ([facility]) - Emphysema lung ([facility]) - Hypercholesterolemia - Hypertension - Kidney stone 2006 Lithotripsy - Normocytic anemia - PAD (peripheral artery disease) ([facility]) - Pneumonia - Polyneuropathy - Spinal stenosis, lumbar - 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 - Tobacco abuse Past Surgical History: Procedure Laterality Date - CATARACT EXT/ECCE Bilateral 12/2012,07/2014 - RI CATH PLMT L HRT & ARTS W/NJX & ANGIO IMG S&I N/A 10/27/2024 Procedure: Coronary Angiogram; Surgeon: Elías Rodriguez MD; Location: [facility]; Service: Cardiovascular - RI CATH PLMT L HRT & ARTS W/NJX & ANGIO IMG S&I N/A 10/27/2024 Procedure: Left Heart Cath; Surgeon: Elías Rodriguez MD; Location: [facility]; Service: Cardiovascular - SKIN CANCER EXCISION 09/2021 L ear Current Outpatient Medications on File Prior to Visit Medication Sig Dispense Refill - acetaminophen (Tylenol Arthritis Pain) 650 MG CR tablet Take 1 (one) tablet (650 mg total) by mouth every 8 (eight) hours as needed for pain . 0 - amLODIPine (NORVASC) 10 MG tablet Take 1 (one) tablet (10 mg total) by mouth daily . 90 tablet 3 - aspirin 81 MG EC tablet Take 1 (one) tablet (81 mg total) by mouth daily . - blood sugar diagnostic (Contour Next Test Strips) strips TEST BLOOD GLUCOSE FOUR TIMES DAILY E10.65 . 150 strip 11 - furosemide (LASIX) 40 MG tablet Take 1 (one) tablet (40 mg total) by mouth 2 (two) times a day . 180 tablet 3 - hydrALAZINE (APRESOLINE) 50 MG tablet Take 1 (one) tablet (50 mg total) by mouth 2 (two) times a day . 180 tablet 3 - insulin g (more content not included)... [facility] 11-07-2024 History of Present illness Narrative Enoc Fernandes [id number] [email or web address] Brock Groves MD 11/07/24 Room/bed info not found Consultation No ref. provider found No chief complaint on file. History of Present Illness Mr. Enoc Fernandes is a 78-year-old male referred to our service after his cardiac cath performed by Dr. Rodriguez. The cardiac cath revealed 40% ostial left main, 85% mid LAD, 80% mid right. The patient also have disease in the second diagonal. He has been complaining of shortness of breath and fatigue which has been getting worse. Because of his shortness of breath he was referred to Dr. Grigsby who subsequently sent him for a cardiac cath. This patient have a long history of tobacco use for more than 30 years. The patient also reported a COVID infection and pneumonia. His past medical history is remarkable for arthritis, coronary artery disease, CHF, chronic kidney disease, diabetes, emphysema, hypertension, hypercholesterolemia, peripheral vascular disease, spinal stenosis and other comorbidities as listed in past medical history. He underwent stress test which revealed an inferior wall motion motion abnormality and EF of 50%. He also had an acute exacerbation of right heart failure which required admission to [facility] for hypertensive emergency and acute flash pulmonary edema. When Mr. Fernandes went to see Dr. Grigsby, he was complaining of lower extremity weakness, heaviness as well as bilateral arm weakness and chest pressure. During this evaluation, patient does not complain of chest pain or pressure. He only complains of some shortness of breath which he attributes to his long-term smoking. The patient was referred to our service for the evaluation of his multivessel coronary artery disease from cardiac surgery perspective. He comes today accompanied by his and daughter. Assessment and Plan this patient is a 78-year-old male with significant past medical history. He comes today to discuss his multivessel coronary artery disease from the cardiac surgery perspective. I have reviewed his presentation and his images, it is very concerning the amount of calcified plaques in the ascending aorta anteriorly and posteriorly as well as the arch and descending aorta. His STS risk stratification score varies from 10 to 14% operative mortality depending of the degree of his COPD. Patient requires oxygen as needed and at night. His morbidity and mortality is 39% according to the STS. This patient is definitely very high risk for elective coronary artery bypass grafting. He has almost a porcelain ascending aorta with most of the plaque burden in the posterior aspect of the ascending aorta which makes crossclamping dangerous. For the above reasons, I believe that other treatment options needs to be considered instead of surgical revascularization. Will be sending this patient back to Dr. Grigsby and Dr. Rodriguez to discuss the therapeutic approach for his multivessel coronary disease. Patient also needs evaluation by vascular surgery due to his coronary artery disease. 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 Tobacco abuse Past Surgical History: Procedure Laterality Date CATARACT EXT/ECCE Bilateral 12/2012,07/2014 RI CATH PLMT L HRT & ARTS W/NJX & ANGIO IMG S&I N/A 10/27/2024 Procedure: Coronary Angiogram; Surgeon: Elías Rodriguez MD; Location: [facility]; Service: Cardiovascular RI CATH PLMT L HRT & ARTS W/NJX & ANGIO IMG S&I N/A 10/27/2024 Procedure: Left Heart Cath; Surgeon: Elías Rodriguez MD; Location: [facility]; Service: Cardiovascular SKIN CANCER EXCISION 09/2021 L ear Current Outpatient Medications on File Prior to Visit Medication Sig Dispense Refill acetaminophen (Tylenol Arthritis Pain) 650 MG CR tablet Take 1 (one) tablet (650 mg total) by mouth every 8 (eight) hours as needed for pain . 0 amLODIPine (NORVASC) 10 MG tablet Take 1 (one) tablet (10 mg total) by mouth daily . 90 tablet 3 aspirin 81 MG EC tablet Take 1 (one) tablet (81 mg total) by mouth daily . blood sugar diagnostic (Contour Next Test Strips) strips TEST BLOOD GLUCOSE FOUR TIMES DAILY E10.65 . 150 strip 11 furosemide (LASIX) 40 MG tablet Take 1 (one) tablet (40 mg total) by mouth 2 (two) times a day . 180 tablet 3 hydrALAZINE (APRESOLINE) 50 MG tablet Take 1 (one) tablet (50 mg total) by mouth 2 (two) times a day . 180 tablet 3 insulin glargine (Basaglar KwikPen U-100 Insulin) 100 unit/mL (3 mL) InPn Inject 18 (eighteen) Units under the skin nightly . 15 mL 3 insulin lispro 100 unit/mL InPn Use as directed 8 units before breakfast, 9 units before lunch, 8 units before dinner . 15 mL 11 isosorbide mononitrate (IMDUR) 30 MG 24 hr tablet Take 1 (one) tablet (30 mg total) by mouth daily . 90 tablet 3 Klor-Con M20 20 mEq tablet Take 1 (one) tablet (20 mEq total) by mouth 2 (two) times a day . lisinopriL (PRINIVIL,ZESTRIL) 5 MG tablet Take 1 (one) tablet (5 mg total) by mouth daily . 90 tablet 3 metoprolol succinate (TOPROL-XL) 25 MG 24 hr tablet Take 1 (one) tablet (25 mg total) by mouth daily . 90 tablet 3 OXYGEN-AIR DELIVERY SYSTEMS MISC Inhale 2 L/min See Admin Instructions . pen needle, diabetic (BD Ultra-Fine Jolynn Pen Needle) 32 gauge x 5/32 Ndle Use as directed 4x daily Dx code E10.65 . 400 each 4 predniSONE (DELTASONE) 20 MG tablet Take 1 (one) tablet (20 mg total) by mouth For 5 days . tamsulosin (FLOMAX) 0.4 mg capsule Take 1 (one) capsule (0.4 mg total) by mouth daily . 30 capsule 3 No current facility-administered medications on file prior to visit. Allergies Allergen Reactions Gttutkv-Rsj-Bce Reductase Inhibitors Muscle cramps Family History Problem Relation Age of Onset Coronary artery disease Father Alzheimer's disease Father Social History Socioeconomic History Marital status: Tobacco Use Smoking status: Every Day Current packs/day: 0.50 Average packs/day: 0.5 packs/day for 51.0 years (25.5 ttl pk-yrs) Types: Cigarettes Smokeless tobacco: Never Vaping Use Vaping status: Never Used Substance and Sexual Activity Alcohol use: No Alcohol/week: 0.0 standard drinks of alcohol Drug use: No Social Drivers of Health Financial Resource Strain: Low Risk (10/11/2023) Received from [facility], [facility] Overall Financial Resource Strain (CARDIA) Difficulty of Paying Living Expenses: Not hard at all Food Insecurity: No Food Insecurity (10/27/2024) Hunger Vital Sign Worried About Running Out of Food in the Last Year: Never true Ran Out of Food in the Last Year: Never true Transportation Needs: No Transportation Needs (10/27/2024) PRAPARE - Transportation Lack of Transportation (Medical): No Lack of Transportation (Non-Medical): No Housing Stability: Low Risk (10/27/2024) Housing Stability Vital Sign Unable to Pay for Housing in the Last Year: No Number of Times Moved in the Last Year: 0 Homeless in the Last Year: No Review of Systems Constitutional: Negative. HENT: Negative. Eyes: Negative. Cardiovascular: Positive for dyspnea on exertion and irregular heartbeat. Respiratory: Positive for shortness of breath. Endocrine: Negative. Skin: Negative. Musculoskeletal: Positive for back pain. Gastrointestinal: Negative. Genitourinary: Negative. Neurological: Negative. Psychiatric/Behavioral: Negative. BP (!) 143/61 (BP Location: Right arm, Patient Position: Sitting, BP Cuff Size: Adult) Pulse 63 Temp 97.4 F (36.3 C) (Oral) Ht 5' 7 Wt 66.7 kg (147 lb) SpO2 100% BMI 23.02 kg/m Physical Exam HENT: Head: Normocephalic. Nose: Nose normal. Eyes: Pupils: Pupils are equal, round, and reactive to light. Cardiovascular: Rate and Rhythm: Rhythm irregular. Pulmonary: Effort: Pulmonary effort is normal. Abdominal: General: Abdomen is flat. Musculoskeletal: General: Normal range of motion. Cervical back: Normal range of motion. Skin: General: Skin is warm. Neurological: General: No focal deficit present. Mental Status: He is alert. Psychiatric: Mood and Affect: Mood normal. WBC Date Value Ref Range Status 10/28/2024 10.25 4.50 - 11.00 K/mcL Final 06/08/2022 8.50 K/mcL Final Hemoglobin Date Value Ref Range Status 10/28/2024 9.3 (L) 13.5 - 17.5 g/dL Final 06/08/2022 14.2 g/dL Final Hemoglobin, Blood Gas Date Value Ref Range Status 10/27/2024 9.8 (L) 13.5 - 17.5 g/dL Final Hematocrit, Calculated Date Value Ref Range Status 10/27/2024 30.0 (L) 41.0 - 53.0 % Final Hematocrit Date Value Ref Range Status 10/28/2024 29.0 (L) 41.0 - 53.0 % Final MCV Date Value Ref Range Status 10/28/2024 94.5 80.0 - 100.0 fL Final Platelets Date Value Ref Range Status 10/28/2024 188 150 - 400 K/mcL Final 06/08/2022 221 K/mcL Final Hemoglobin A1C Date Value Ref Range Status 10/27/2024 9.9 (H) 4.2 - 5.6 % Final 06/11/2023 7.6 % Final Glucose Date Value Ref Range Status 10/28/2024 95 65 - 99 mg/dL Final 11/27/2023 544 (CH) 65 - 99 mg/dL Final Calcium Date Value Ref Range Status 10/28/2024 8.5 8.4 - 10.2 mg/dL Final Sodium Date Value Ref Range Status 10/28/2024 139 135 - 145 mmol/L Final 11/27/2023 138 135 - 145 mmol/L Final Potassium Date Value Ref Range Status 10/28/2024 4.1 3.5 - 5.1 mmol/L Final 11/27/2023 4.0 3.5 - 5.1 mmol/L Final Chloride Date Value Ref Range Status 10/28/2024 108 98 - 108 mmol/L Final 11/27/2023 108 98 - 108 mmol/L Final BUN Date Value Ref Range Status 10/28/2024 82 (H) 8 - 25 mg/dL Final 06/11/2023 31 mg/dL Final Creatinine Date Value Ref Range Status 10/28/2024 2.31 (H) 0.80 - 1.30 mg/dL Final 06/11/2023 1.85 mg/dL Final INR Date Value Ref Range Status 10/27/2024 1.1 0.8 - 1.1 Final APTT Date Value Ref Range Status 10/27/2024 74 (H) 23 - 34 seconds Final Albumin Date Value Ref Range Status 10/27/2024 3.4 3.2 - 5.2 g/dL Final ] Problem List Items Addressed This Visit None documented in this encounter [facility] 10-28-2024 Progress note Formatting of t his note might be different from the original. Patient blood sugar at 1:27pm measured 288. Blood sugar at this time measured 321. [facility] [place] to give 8 units of lispro at this time and to instruct patient to recheck blood sugar in a couple hours at home. Patient IV removed and discharge education provided at this time. Patient understands and verbalizes he will check blood sugar when home and to follow medication regimen after discharge [facility] 10-28-2024 Miscellaneous Notes Patient blood sugar at 1:27pm measured 288. Blood sugar at this time measured 321. [facility] [place] to give 8 units of lispro at this time and to instruct patient to recheck blood sugar in a couple hours at home. Patient IV removed and discharge education provided at this time. Patient understands and verbalizes he will check blood sugar when home and to follow medication regimen after discharge Problem: Actual or potential alteration in health Goal: Absence of healthcare acquired conditions Outcome: Partially Met Goal: Knowledge of Interdisciplinary Plan of Care Outcome: Partially Met Goal: Knowledge of Enviroment Outcome: Partially Met Problem: Pressure Injury, Risk of Goal: Absence of pressure injury Outcome: Partially Met Patient stands at edge of bed to void and request to go to restroom. Patient does not want bedrest orders that are in place at this time. Patient is anxious for dc to home but appreciative with provided care. Bed alarm corrections cadet light in reach. Problem: Actual or potential alteration in health Goal: Absence of healthcare acquired conditions Outcome: Partially Met Goal: Knowledge of Interdisciplinary Plan of Care Outcome: Partially Met Goal: Knowledge of Enviroment Outcome: Partially Met Patient is on insulin drip, will continue to monitor glucose hourly until further orders. Insulin drip effective with lowering glucose. Will continue to monitor and report any concerns. Started insulin pump off of the most current glulose. Informed dr Silver that RT unsuccessful with 2 attempts for Glucose ABG that was requested per protocol with elevated glucose. Dr Silver states that abg not needed to start insulin drip since abg drawn earlier to start drip with current glucose. Insulin drip infusing and started at 6.6 units/hr. Arrived to intermediate unit. Reviewed labs and orders. Blood sugar elevated to high to read via glucometer. RT notified for needed Glucose via ABG. Will start ordered insulin drip as soon as results available. Patient is alert and oriented. Patient discussed having heart cath as planned earlier today with possible need for open heart. Two Ice chips provided as requested. NPO status excluding ice chips and sips with meds This RN received report from observation unit nurse via phone. Problem: Actual or potential alteration in health Goal: Absence of healthcare acquired conditions Outcome: Partially Met Goal: Knowledge of Interdisciplinary Plan of Care Outcome: Partially Met Goal: Knowledge of Enviroment Outcome: Partially Met Consultation for possible surgical revascularization of the heart received from cardiology, Dr. Estefany Rodriguez. Preoperative diagnostic studies currently in progress. In review of serum laboratory studies, patient is found to be hyperkalemic with a serum potassium of 6.3; stat repeat serum potassium is been ordered. Hyperglycemia noted at 467. Updated Dr. Rodriguez of the aforementioned serum laboratory studies. At this time, consultation is placed to hospitalist for admission to observation status for evaluation and treatment. Admitting hospitalist notified. Patient currently is receiving IV fluids for known stage IV kidney disease, BUN/creatinine: 92/2.[address] Rodriguez notified and at bedside to speak to patient r/g Critical potasium and elevated glucose. documented in this encounter [facility] 10-28-2024 Note HMS DISCHARGE SUMMAR Y -- [facility] Enoc Fernandes Admitted: 10/27/2024 Discharge Date: 10/28/24 PCP Handoff Recommended Outpatient Testing none Results Pending At Discharge none Clinical Summary Enoc Fernandes is a 78 y.o. male patient of Ryley Jeter MD with history of coronary artery disease, type 1 diabetes, diastolic CHF, hypertension dyslipidemia COPD and lumbar spinal stenosis with chronic low back pain presented to [facility] on 10/27/2024 for an elective left heart cath following which patient was noted to have hyperglycemia and hyperkalemia. Specialist team was called for admission. Assessment and plan Increased anion gap metabolic acidosis DKA Type 1 diabetes Uncontrolled diabetes Beta-hydroxybutyrate at 2.3, blood sugar 564, bicarb 15 anion gap 20. Continue to trend beta-hydroxybutyrate Lactic acid within normal limit Status post IV fluids and insulin drip. Anion gap closed. Was given one time dose of lantus 5 units in the morning and restarted on his home regimen of Lantus/Admelog by endocrinology, to be continued at discharge. History of coronary artery disease Status post cath showing complex triple-vessel disease involving LAD, RCA and diagonal 2. Normal LVEDP. CT surgery consulted. Discussed with DOMINICK Cummings patient can be discharged from their standpoint and he has followup on Nov [address] Brock Groves. Patient very eager to go home. Aspirin Toprol-XL and Imdur. Allergic to statin. Echo reviewed with EF 60 to 65%. No regional wall motion abnormality. RVSP 49. Hypertension Norvasc, Imdur, Toprol, Lisinopril Hyperkalemia Initial potassium was 6.3 recheck this afternoon was 3.4. Hemolyzed sample MADONNA on CKD stage III Baseline creatinine 1.9-2, creatinine 2.6 on admission and now improved. Lasix and lisinopril were held on admission and resumed at discharge. S/P some IV fluids post cath. Discharge Medications Discharge Medications Medications To Continue Details amLODIPine 10 MG tablet Commonly known as: NORVASC Take 1 (one) tablet (10 mg total) by mouth daily . Quantity: 90 tablet aspirin 81 MG EC tablet Take 1 (one) tablet (81 mg total) by mouth daily . Contour Next Test Strips strips Generic drug: blood sugar diagnostic TEST BLOOD GLUCOSE FOUR TIMES DAILY E10.65 . Quantity: 150 strip furosemide 40 MG tablet Commonly known as: LASIX Take 1 (one) tablet (40 mg total) by mouth 2 (two) times a day . Quantity: 180 tablet hydrALAZINE 50 MG tablet Commonly known as: APRESOLINE Take 1 (one) tablet (50 mg total) by mouth 2 (two) times a day . Quantity: 180 tablet insulin lispro 100 unit/mL Inpn Use as directed 8 units before breakfast, 9 units before lunch, 8 units before dinner . Quantity: 15 mL isosorbide mononitrate 30 MG 24 hr tablet Commonly known as: IMDUR Take 1 (one) tablet (30 mg total) by mouth daily . Quantity: 90 tablet Klor-Con M20 20 mEq tablet Generic drug: potassium chloride SA Take 1 (one) tablet (20 mEq total) by mouth 2 (two) times a day . Lantus Solostar U-100 Insulin 100 unit/mL (3 mL) Inpn Generic drug: insulin glargine Inject 14 (fourteen) Units to 18 (eighteen) Units under the skin nightly . Quantity: 15 mL lisinopriL 5 MG tablet Commonly known as: PRINIVIL,ZESTRIL Take 1 (one) tablet (5 mg total) by mouth daily . Quantity: 90 tablet metoprolol succinate 25 MG 24 hr tablet Commonly known as: TOPROL-XL Take 1 (one) tablet (25 mg total) by mouth daily . Quantity: 90 tablet [facility] [place]hale 2 L/min See Admin Instructions . pen needle, diabetic 32 gauge x 5/32 Ndle Commonly known as: BD Ultra-Fine Jolynn Pen Needle Use as directed 4x daily Dx code E10.65 . Quantity: 400 each predniSONE 20 MG tablet Commonly known as: DELTASONE Take 1 (one) tablet (20 mg total) by mouth For 5 days . tamsulosin 0.4 mg capsule Commonly known as: FLOMAX Take 1 (one) capsule (0.4 mg total) by mouth daily . Quantity: 30 capsule Tylenol Arthritis Pain 650 MG CR tablet Generic drug: acetaminophen Take 1 (one) tablet (650 mg total) by mouth every 8 (eight) hours as needed for pain . Physician(s) Follow Up: [facility] [id number] Follow up on 11/07/2024 Consultation for surgivcal revascularization of the heart with Dr. Groves on 11/07/24 at 10:00 am. Third Floor Medical Office Building Condition at Discharge: Stable Disposition: Home I reviewed discharge recommendations with the patient in person. Patient instructions, including activity, were given to the patient/family at discharge. On day of discharge I saw Enoc Fernandes and spent: > 30 minutes on discharge. Completed by: Nidia Garay MD on 10/28/24, 2:16 PM AUTHENTICATED BY NIDIA GARAY, ON 10/28/2024 14:19:41 [facility] 10-28-2024 Hospital course Narrative [facility] [place] [facility] Enoc Fernandes Admitted: 10/27/2024 Discharge Date: 10/28/24 PCP Handoff Recommended Outpatient Testing none Results Pending At Discharge none Clinical Summary Enoc Fernandes is a 78 y.o. male patient of Ryley Jeetr MD with history of coronary artery disease, type 1 diabetes, diastolic CHF, hypertension dyslipidemia COPD and lumbar spinal stenosis with chronic low back pain presented to [facility] on 10/27/2024 for an elective left heart cath following which patient was noted to have hyperglycemia and hyperkalemia. Specialist team was called for admission. Assessment and plan Increased anion gap metabolic acidosis DKA Type 1 diabetes Uncontrolled diabetes Beta-hydroxybutyrate at 2.3, blood sugar 564, bicarb 15 anion gap 20. Continue to trend beta-hydroxybutyrate Lactic acid within normal limit Status post IV fluids and insulin drip. Anion gap closed. Was given one time dose of lantus 5 units in the morning and restarted on his home regimen of Lantus/Admelog by endocrinology, to be continued at discharge. History of coronary artery disease Status post cath showing complex triple-vessel disease involving LAD, RCA and diagonal 2. Normal LVEDP. CT surgery consulted. Discussed with DOMINICK Cummings patient can be discharged from their standpoint and he has followup on Nov [address] Brock Groves. Patient very eager to go home. Aspirin Toprol-XL and Imdur. Allergic to statin. Echo reviewed with EF 60 to 65%. No regional wall motion abnormality. RVSP 49. Hypertension Norvasc, Imdur, Toprol, Lisinopril Hyperkalemia Initial potassium was 6.3 recheck this afternoon was 3.4. Hemolyzed sample MADONNA on CKD stage III Baseline creatinine 1.9-2, creatinine 2.6 on admission and now improved. Lasix and lisinopril were held on admission and resumed at discharge. S/P some IV fluids post cath. Discharge Medications Discharge Medications Medications To Continue Details amLODIPine 10 MG tablet Commonly known as: NORVASC Take 1 (one) tablet (10 mg total) by mouth daily . Quantity: 90 tablet aspirin 81 MG EC tablet Take 1 (one) tablet (81 mg total) by mouth daily . Contour Next Test Strips strips Generic drug: blood sugar diagnostic TEST BLOOD GLUCOSE FOUR TIMES DAILY E10.65 . Quantity: 150 strip furosemide 40 MG tablet Commonly known as: LASIX Take 1 (one) tablet (40 mg total) by mouth 2 (two) times a day . Quantity: 180 tablet hydrALAZINE 50 MG tablet Commonly known as: APRESOLINE Take 1 (one) tablet (50 mg total) by mouth 2 (two) times a day . Quantity: 180 tablet insulin lispro 100 unit/mL Inpn Use as directed 8 units before breakfast, 9 units before lunch, 8 units before dinner . Quantity: 15 mL isosorbide mononitrate 30 MG 24 hr tablet Commonly known as: IMDUR Take 1 (one) tablet (30 mg total) by mouth daily . Quantity: 90 tablet Klor-Con M20 20 mEq tablet Generic drug: potassium chloride SA Take 1 (one) tablet (20 mEq total) by mouth 2 (two) times a day . Lantus Solostar U-100 Insulin 100 unit/mL (3 mL) Inpn Generic drug: insulin glargine Inject 14 (fourteen) Units to 18 (eighteen) Units under the skin nightly . Quantity: 15 mL lisinopriL 5 MG tablet Commonly known as: PRINIVIL,ZESTRIL Take 1 (one) tablet (5 mg total) by mouth daily . Quantity: 90 tablet metoprolol succinate 25 MG 24 hr tablet Commonly known as: TOPROL-XL Take 1 (one) tablet (25 mg total) by mouth daily . Quantity: 90 tablet OXYGEN-AIR DELIVERY SYSTEMS MISC Inhale 2 L/min See Admin Instructions . pen needle, diabetic 32 gauge x 5/32 Ndle Commonly known as: BD Ultra-Fine Jolynn Pen Needle Use as directed 4x daily Dx code E10.65 . Quantity: 400 each predniSONE 20 MG tablet Commonly known as: DELTASONE Take 1 (one) tablet (20 mg total) by mouth For 5 days . tamsulosin 0.4 mg capsule Commonly known as: FLOMAX Take 1 (one) capsule (0.4 mg total) by mouth daily . Quantity: 30 capsule Tylenol Arthritis Pain 650 MG CR tablet Generic drug: acetaminophen Take 1 (one) tablet (650 mg total) by mouth every 8 (eight) hours as needed for pain . Physician(s) Follow Up: Brock Groves MD [address] [place] [id number] Follow up on 11/07/2024 Consultation for surgivcal revascularization of the heart with Dr. Groves on 11/07/24 at 10:00 am. Third Floor Medical Office Building Condition at Discharge: Stable Disposition: Home I reviewed discharge recommendations with the patient in person. Patient instructions, including activity, were given to the patient/family at discharge. On day of discharge I saw Enoc Fernandes and spent: > 30 minutes on discharge. Completed by: Nidia Garay MD on 10/28/24, 2:16 PM documented in this encounter [facility] 10-28-2024 Note Daily Progress Note Assessment/Plan: Principal Problem: Hyperglycemia Active Problems: Cardiovascular stress test abnormal Fatigue SOB (shortness of breath) LOS: 0 days Subjective: Interval History: has no complaint of Hyperglycemia and/or hyperkalemia. Outpatient consultation received on 10/27/2024 from Cardiology for evaluation of possible surgical vascularization of the heart by CT Surgery. During preoperative study workout, patient is found to be hyperkalemic with a serum potassium of or about 6.2 and a serum glucose of 467. Repeat serum potassium is obtained and is found to be within normal limits, suggestive of initial sample being hemolyzed. After discussion and review of serum laboratory studies with Dr. Elías Rodriguez, consultation was placed to Hospitalist for further evaluation and treatment of the patient's hyperglycemia/DKA state. He had an overnight stay, observation status, in which his hyperglycemia/DKA state has since resolved and it is felt the patient is appropriate for discharge to home. From a cardiology and CT surgery standpoint, the patient is cleared for discharge and is scheduled to follow-up with CT surgery on November 07, 2024 at 10:[address] Simone Groves... Objective: Vital signs in last 24 hours: Temp: [97.4 degrees F (36.3 degrees C)-98.5 degrees F (36.9 degrees C)] 97.6 degrees F (36.4 degrees C) Heart Rate: [62-85] 68 Resp: [12-16] 14 BP: (118-174)/(51-70) 153/51 Intake/Output last 3 shifts: I/O last 3 completed shifts: In: 1181.2 [P.O.:170; I.V.:1011.2] Out: 1100 [Urine:1100] Intake/Output this shift: I/O this shift: In: 391.8 [I.V.:266.8; IV Piggyback:125] Out: - Physical Exam: No exam performed today, Discussed with hospitalist, Dr. Chaim Garay.. AUTHENTICATED BY ZOILA SALAZAR, ON 10/28/2024 14:16:31 [facility] 10-28-2024 History of Present illness Narrative Daily Progress Note Assessment/Plan: Principal Problem: Hyperglycemia Active Problems: Cardiovascular stress test abnormal Fatigue SOB (shortness of breath) LOS: 0 days Subjective: Interval History: has no complaint of Hyperglycemia and/or hyperkalemia. Outpatient consultation received on 10/27/2024 from Cardiology for evaluation of possible surgical vascularization of the heart by CT Surgery. During preoperative study workout, patient is found to be hyperkalemic with a serum potassium of or about 6.2 and a serum glucose of 467. Repeat serum potassium is obtained and is found to be within normal limits, suggestive of initial sample being hemolyzed. After discussion and review of serum laboratory studies with Dr. Elías Rodriguez, consultation was placed to Hospitalist for further evaluation and treatment of the patient s hyperglycemia/DKA state. He had an overnight stay, observation status, in which his hyperglycemia/DKA state has since resolved and it is felt the patient is appropriate for discharge to home. From a cardiology and CT surgery standpoint, the patient is cleared for discharge and is scheduled to follow-up with CT surgery on November 07, 2024 at 10:[address] Simone Groves... Objective: Vital signs in last 24 hours: Temp: [97.4 F (36.3 C)-98.5 F (36.9 C)] 97.6 F (36.4 C) Heart Rate: [62-85] 68 Resp: [12-16] 14 BP: (118-174)/(51-70) 153/51 Intake/Output last 3 shifts: I/O last 3 completed shifts: In: 1181.2 [P.O.:170; I.V.:1011.2] Out: 1100 [Urine:1100] Intake/Output this shift: I/O this shift: In: 391.8 [I.V.:266.8; IV Piggyback:125] Out: - Physical Exam: No exam performed today, Discussed with hospitalist, Dr. Chaim Garay.. [facility] [place] Assessment and Plan Enoc Fernandes is a 78 y.o. male patient of Ryley Jeter MD with history of coronary artery disease, type 1 diabetes, diastolic CHF, hypertension dyslipidemia COPD and lumbar spinal stenosis with chronic low back pain presented to [facility] on 10/27/2024 for an elective left heart cath following which patient was noted to have hyperglycemia and hyperkalemia. Specialist team was called for admission. Assessment and plan Increased anion gap metabolic acidosis DKA Type 1 diabetes Uncontrolled diabetes Beta-hydroxybutyrate at 2.3, blood sugar 564, bicarb 15 anion gap 20. Continue to trend beta-hydroxybutyrate Lactic acid within normal limit Status post IV fluids and insulin drip. Anion gap closed. Stop insulin drip and restart on Lantus nightly with Humalog 10 units 3 times daily. Will give one-time dose of Lantus 5 units now and restart on diet. I was not aware Endocrinology was consulted but looks like Neurontin will let them manage further. History of coronary artery disease Status post cath showing complex triple-vessel disease involving LAD, RCA and diagonal 2. Normal LVEDP. CT surgery consulted. Aspirin Toprol-XL and Imdur. Allergic to statin. Echo reviewed with EF 60 to 65%. No regional wall motion abnormality. RVSP 49. Hyperkalemia Initial potassium was 6.3 recheck this afternoon was 3.4 Continue to hold p.o. potassium supplement which patient takes at home Continue to hold lisinopril MADONNA on CKD stage III Baseline creatinine 1.9-2, creatinine 2.6 on admission and now improved. Holding Lasix and lisinopril today. Continue IV fluids as above to prevent contrast-induced nephropathy Resolved acute medical issues Discharge Planning Medically Stable for Discharge Date: TBD Patient requires continued hospitalization due to: pending final ct surgery eval Discharge Location: home Quality Measures DVT Prophylaxis: heparin subcutaneous Henley Catheter: absent Code Status full Primary Contact Information Subjective Patient denies chest pain overnight. Blood glucose is better controlled and wants to eat this morning. He really wants to go home but I did tell him that we are doing surgery evaluation and will have to confirm with them. Objective BP (!) 153/51 Pulse 68 Temp 97.6 F (36.4 C) (Oral) Resp 14 Ht 5' 7 Wt 65 kg (143 lb 4.8 oz) SpO2 94% BMI 22.44 kg/m Physical Examination General Appearance: alert; acute on chronically ill appearing; in no acute distress HEENT: Head- normocephalic; Eyes- EOMI, sclera anicteric; Throat- mucous membranes moist Cardiovascular: regular rate and rhythm; normal S1, S2; no murmurs, rubs, clicks or gallops; peripheral edema absent Respiratory: lungs clear to auscultation; without wheezes, rales or rhonchi; on room air Abdomen: soft, non-tender, non-distended Neurological: oriented x 3; normal speech; no focal findings or movement disorder noted Musculoskeletal: no significant deformity or tenderness to palpation Skin: normal coloration Psych: normal mood and affect documented in this encounter [facility] 10-28-2024 Note HMS PROGRESS NOTE Assessment and Plan Enoc Fernandes is a 78 y.o. male patient of Ryley Jeter MD with history of coronary artery disease, type 1 diabetes, diastolic CHF, hypertension dyslipidemia COPD and lumbar spinal stenosis with chronic low back pain presented to [facility] on 10/27/2024 for an elective left heart cath following which patient was noted to have hyperglycemia and hyperkalemia. Specialist team was called for admission. Assessment and plan Increased anion gap metabolic acidosis DKA Type 1 diabetes Uncontrolled diabetes Beta-hydroxybutyrate at 2.3, blood sugar 564, bicarb 15 anion gap 20. Continue to trend beta-hydroxybutyrate Lactic acid within normal limit Status post IV fluids and insulin drip. Anion gap closed. Stop insulin drip and restart on Lantus nightly with Humalog 10 units 3 times daily. Will give one-time dose of Lantus 5 units now and restart on diet. I was not aware Endocrinology was consulted but looks like Neurontin will let them manage further. History of coronary artery disease Status post cath showing complex triple-vessel disease involving LAD, RCA and diagonal 2. Normal LVEDP. CT surgery consulted. Aspirin Toprol-XL and Imdur. Allergic to statin. Echo reviewed with EF 60 to 65%. No regional wall motion abnormality. RVSP 49. Hyperkalemia Initial potassium was 6.3 recheck this afternoon was 3.4 Continue to hold p.o. potassium supplement which patient takes at home Continue to hold lisinopril MADONNA on CKD stage III Baseline creatinine 1.9-2, creatinine 2.6 on admission and now improved. Holding Lasix and lisinopril today. Continue IV fluids as above to prevent contrast-induced nephropathy Resolved acute medical issues Discharge Planning Medically Stable for Discharge Date: TBD Patient requires continued hospitalization due to: pending final ct surgery eval Discharge Location: home Quality Measures DVT Prophylaxis: heparin subcutaneous Henley Catheter: absent Code Status full Primary Contact Information Subjective Patient denies chest pain overnight. Blood glucose is better controlled and wants to eat this morning. He really wants to go home but I did tell him that we are doing surgery evaluation and will have to confirm with them. Objective BP (!) 153/51 Pulse 68 Temp 97.6 degrees F (36.4 degrees C) (Oral) Resp 14 Ht 5' 7 Wt 65 kg (143 lb 4.8 oz) SpO2 94% BMI 22.44 kg/m Physical Examination General Appearance: alert; acute on chronically ill appearing; in no acute distress HEENT: Head- normocephalic; Eyes- EOMI, sclera anicteric; Throat- mucous membranes moist Cardiovascular: regular rate and rhythm; normal S1, S2; no murmurs, rubs, clicks or gallops; peripheral edema absent Respiratory: lungs clear to auscultation; without wheezes, rales or rhonchi; on room air Abdomen: soft, non-tender, non-distended Neurological: oriented x 3; normal speech; no focal findings or movement disorder noted Musculoskeletal: no significant deformity or tenderness to palpation Skin: normal coloration Psych: normal mood and affect AUTHENTICATED BY NIDIA GARAY ON 10/28/2024 11:43:31 [facility] 10-28-2024 Plan of care note Problem: Actual or potential alteration in health Goal: Absence of healthcare acquired conditions Outcome: Partially Met Goal: Knowledge of Interdisciplinary Plan of Care Outcome: Partially Met Goal: Knowledge of Enviroment Outcome: Partially Met Problem: Pressure Injury, Risk of Goal: Absence of pressure injury Outcome: Partially Met [facility] 10-28-2024 Progress note Formatting of t his note might be different from the original. Patient stands at edge of bed to void and request to go to restroom. Patient does not want bedrest orders that are in place at this time. Patient is anxious for dc to home but appreciative with provided care. Bed alarm corrections cadet light in reach. [facility] 10-28-2024 Plan of care note Problem: Actual or potential alteration in health Goal: Absence of healthcare acquired conditions Outcome: Partially Met Goal: Knowledge of Interdisciplinary Plan of Care Outcome: Partially Met Goal: Knowledge of Enviroment Outcome: Partially Met Patient is on insulin drip, will continue to monitor glucose hourly until further orders. Insulin drip effective with lowering glucose. Will continue to monitor and report any concerns. [facility] 10-27-2024 Progress note Formatting of t his note might be different from the original. Started insulin pump off of the most current glulose. Informed dr Silver that RT unsuccessful with 2 attempts for Glucose ABG that was requested per protocol with elevated glucose. Dr Silver states that abg not needed to start insulin drip since abg drawn earlier to start drip with current glucose. Insulin drip infusing and started at 6.6 units/hr. [facility] 10-27-2024 Progress note Formatting of t his note might be different from the original. Arrived to intermediate unit. Reviewed labs and orders. Blood sugar elevated to high to read via glucometer. RT notified for needed Glucose via ABG. Will start ordered insulin drip as soon as results available. Patient is alert and oriented. Patient discussed having heart cath as planned earlier today with possible need for open heart. Two Ice chips provided as requested. NPO status excluding ice chips and sips with meds [facility] 10-27-2024 Progress note Formatting of t his note might be different from the original. This RN received report from observation unit nurse via phone. [facility] 10-27-2024 Plan of care note Problem: Actual or potential alteration in health Goal: Absence of healthcare acquired conditions Outcome: Partially Met Goal: Knowledge of Interdisciplinary Plan of Care Outcome: Partially Met Goal: Knowledge of Enviroment Outcome: Partially Met [facility] 10-27-2024 History and physical note [facility] [place] [facility] Patient Name: Enoc Fernandes : 1945 MR #: [id number] Admit Date: 10/27/2024 Physicians: Ryley Jeter MD (Family); No ref. provider found (Referring) Enoc Fernandes is a 78 y.o. male patient of Ryley Jeter MD with history of coronary artery disease, type 1 diabetes, diastolic CHF, hypertension dyslipidemia COPD and lumbar spinal stenosis with chronic low back pain presented to [facility] on 10/27/2024 for an elective left heart cath following which patient was noted to have hyperglycemia and hyperkalemia. Specialist team was called for admission. Assessment and plan Increased anion gap metabolic acidosis DKA Type 1 diabetes Uncontrolled diabetes Beta-hydroxybutyrate at 2.3, continue to trend beta-hydroxybutyrate Lactic acid within normal limit Start patient on DKA protocol. Insulin drip per DKA protocol Continue normal saline at 100 cc/h for 10 hours Patient takes 15 units of Lantus at night and Humalog 8 units before breakfast 9 units before lunch and 8 units before dinner Consult endocrinology History of coronary artery disease Status post left heart catheter today CT surgery consulted for CABG evaluation Continue aspirin Toprol-XL and Imdur Hyperkalemia Initial potassium was 6.3 recheck this afternoon was 3.4 Continue to hold p.o. potassium supplement which patient takes at home Continue to hold lisinopril MADONNA on CKD stage III Baseline creatinine 1.9-2 Creatinine this morning 2.6 Continue to hold Lasix and lisinopril Continue IV fluids as above to prevent contrast-induced nephropathy Residence prior to admission: house or apartment Was patient transferred from outlying hospital or ED no Quality Measures DVT Prophylaxis: SCDs Henley Catheter: absent Medication Reconciliation: Verified Admitted with these risk variables:None. Please see assessment and plan for further details. Estimated Date of Discharge less than 2 midnights Code Status Full Code; code status verified on 10/27/2024 with patient (capacity intact) Chief Complaint hyperkalemia and hyperglycemia History of Present Illness Enoc Fernandes is a 78 y.o. male patient of Ryley Jeter MD with history of coronary artery disease, type 1 diabetes, diastolic CHF, hypertension dyslipidemia COPD and lumbar spinal stenosis with chronic low back pain presented to [facility] on 10/27/2024 for an elective left heart cath following which patient was noted to have hyperglycemia and hyperkalemia. Specialist team was called for admission. Patient denies any complaints this afternoon other than his ongoing chronic low back pain. Patient denies any abdominal pain nausea or vomiting. Patient denies any chest pain or shortness of. Patient denies any blood in his urine or stool. 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 Past Surgical History Past Surgical History: Procedure Laterality Date CATARACT EXT/ECCE Bilateral 12/2012,07/2014 SKIN CANCER EXCISION 09/2021 L ear Family History Family History Problem Relation Age of Onset Coronary artery disease Father Alzheimer's disease Father Social History Social History Tobacco Use Smoking Status Every Day Current packs/day: 0.50 Average packs/day: 0.5 packs/day for 51.0 years (25.5 ttl pk-yrs) Types: Cigarettes Smokeless Tobacco Never Social History Substance and Sexual Activity Alcohol Use No Alcohol/week: 0.0 standard drinks of alcohol Social History Substance and Sexual Activity Drug Use No Allergy Information I have reviewed the patient's allergies. Repzyxd-rfb-ygs reductase inhibitors Home Medications Home medications were reviewed. Review Of Systems All relevant systems have been reviewed and are negative except as noted in HPI or below Physical Examination BP 130/64 Pulse 85 Temp 98.1 F (36.7 C) (Oral) Resp 16 Ht 5' 7 Wt 65.8 kg (145 lb) SpO2 93% BMI 22.71 kg/m General Appearance: alert; well appearing; in no acute distress HEENT: Head- normocephalic; Eyes- EOMI, sclera anicteric; Throat- mucous membranes moist Cardiovascular: regular rate and rhythm; normal S1, S2; no murmurs, rubs, clicks or gallops; peripheral edema absent Respiratory: lungs clear to auscultation; without wheezes, rales or rhonchi; on room air Abdomen: soft, non-tender, non-distended Neurological: oriented x 3; normal speech; no focal findings or movement disorder noted Musculoskeletal: no significant deformity or tenderness to palpation Skin: normal coloration Psych: normal mood and affect [facility] 10-27-2024 Note HMS HISTORY AND PHYS ICAL -- [facility] Patient Name: Enoc Fernandes : 1945 MR #: [id number] Admit Date: 10/27/2024 Physicians: Ryley Jeter MD (Family); No ref. provider found (Referring) Enoc Fernandes is a 78 y.o. male patient of Ryley Jeter MD with history of coronary artery disease, type 1 diabetes, diastolic CHF, hypertension dyslipidemia COPD and lumbar spinal stenosis with chronic low back pain presented to [facility] on 10/27/2024 for an elective left heart cath following which patient was noted to have hyperglycemia and hyperkalemia. Specialist team was called for admission. Assessment and plan Increased anion gap metabolic acidosis DKA Type 1 diabetes Uncontrolled diabetes Beta-hydroxybutyrate at 2.3, continue to trend beta-hydroxybutyrate Lactic acid within normal limit Start patient on DKA protocol. Insulin drip per DKA protocol Continue normal saline at 100 cc/h for 10 hours Patient takes 15 units of Lantus at night and Humalog 8 units before breakfast 9 units before lunch and 8 units before dinner Consult endocrinology History of coronary artery disease Status post left heart catheter today CT surgery consulted for CABG evaluation Continue aspirin Toprol-XL and Imdur Hyperkalemia Initial potassium was 6.3 recheck this afternoon was 3.4 Continue to hold p.o. potassium supplement which patient takes at home Continue to hold lisinopril MADONNA on CKD stage III Baseline creatinine 1.9-2 Creatinine this morning 2.6 Continue to hold Lasix and lisinopril Continue IV fluids as above to prevent contrast-induced nephropathy Residence prior to admission: house or apartment Was patient transferred from outlying hospital or ED no Quality Measures DVT Prophylaxis: SCDs Henley Catheter: absent Medication Reconciliation: Verified Admitted with these risk variables:None. Please see assessment and plan for further details. Estimated Date of Discharge less than 2 midnights Code Status Full Code; code status verified on 10/27/2024 with patient (capacity intact) Chief Complaint hyperkalemia and hyperglycemia History of Present Illness Enoc Fernandes is a 78 y.o. male patient of Ryley Jeter MD with history of coronary artery disease, type 1 diabetes, diastolic CHF, hypertension dyslipidemia COPD and lumbar spinal stenosis with chronic low back pain presented to [facility] on 10/27/2024 for an elective left heart cath following which patient was noted to have hyperglycemia and hyperkalemia. Specialist team was called for admission. Patient denies any complaints this afternoon other than his ongoing chronic low back pain. Patient denies any abdominal pain nausea or vomiting. Patient denies any chest pain or shortness of. Patient denies any blood in his urine or stool. 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 Past Surgical History Past Surgical History: Procedure Laterality Date CATARACT EXT/ECCE Bilateral 12/2012,07/2014 SKIN CANCER EXCISION 09/2021 L ear Family History Family History Problem Relation Age of Onset Coronary artery disease Father Alzheimer's disease Father Social History Social History Tobacco Use Smoking Status Every Day Current packs/day: 0.50 Average packs/day: 0.5 packs/day for 51.0 years (25.5 ttl pk-yrs) Types: Cigarettes Smokeless Tobacco Never Social History Substance and Sexual Activity Alcohol Use No Alcohol/week: 0.0 standard drinks of alcohol Social History Substance and Sexual Activity Drug Use No Allergy Information I have reviewed the patient's allergies. Jikxswy-hki-jjg reductase inhibitors Home Medications Home medications were reviewed. Review Of Systems All relevant systems have been reviewed and are negative except as noted in HPI or below Physical Examination BP 130/64 Pulse 85 Temp 98.1 degrees F (36.7 degrees C) (Oral) Resp 16 Ht 5' 7 Wt 65.8 kg (145 lb) SpO2 93% BMI 22.71 kg/m General Appearance: alert; well appearing; in no acute distress HEENT: Head- normocephalic; Eyes- EOMI, sclera anicteric; Throat- mucous membranes moist Cardiovascular: regular rate and rhythm; normal S1, S2; no murmurs, rubs, clicks or gallops; peripheral edema absent Respiratory: lungs clear to auscultation; without wheezes, rales or rhonchi; on room air Abdomen: soft, non-tender, non-distended Neurological: oriented x 3; normal speech; no focal findings or movement disorder noted Musculoskeletal: no significant deformity or tenderness to palpation Skin: normal coloration Psych: (more content not included)... [facility] 10-27-2024 History and physical note [facility] [place] [facility] Patient Name: Enco Fernandes : 1945 MR #: [id number] Admit Date: 10/27/2024 Physicians: Ryley Jeter MD (Family); No ref. provider found (Referring) Enoc Fernandes is a 78 y.o. male patient of Ryley Jeter MD with history of coronary artery disease, type 1 diabetes, diastolic CHF, hypertension dyslipidemia COPD and lumbar spinal stenosis with chronic low back pain presented to [facility] on 10/27/2024 for an elective left heart cath following which patient was noted to have hyperglycemia and hyperkalemia. Specialist team was called for admission. Assessment and plan Increased anion gap metabolic acidosis DKA Type 1 diabetes Uncontrolled diabetes Beta-hydroxybutyrate at 2.3, continue to trend beta-hydroxybutyrate Lactic acid within normal limit Start patient on DKA protocol. Insulin drip per DKA protocol Continue normal saline at 100 cc/h for 10 hours Patient takes 15 units of Lantus at night and Humalog 8 units before breakfast 9 units before lunch and 8 units before dinner Consult endocrinology History of coronary artery disease Status post left heart catheter today CT surgery consulted for CABG evaluation Continue aspirin Toprol-XL and Imdur Hyperkalemia Initial potassium was 6.3 recheck this afternoon was 3.4 Continue to hold p.o. potassium supplement which patient takes at home Continue to hold lisinopril MADONNA on CKD stage III Baseline creatinine 1.9-2 Creatinine this morning 2.6 Continue to hold Lasix and lisinopril Continue IV fluids as above to prevent contrast-induced nephropathy Residence prior to admission: house or apartment Was patient transferred from outlying hospital or ED no Quality Measures DVT Prophylaxis: SCDs Henley Catheter: absent Medication Reconciliation: Verified Admitted with these risk variables:None. Please see assessment and plan for further details. Estimated Date of Discharge less than 2 midnights Code Status Full Code; code status verified on 10/27/2024 with patient (capacity intact) Chief Complaint hyperkalemia and hyperglycemia History of Present Illness Enoc Fernandes is a 78 y.o. male patient of Ryley Jeter MD with history of coronary artery disease, type 1 diabetes, diastolic CHF, hypertension dyslipidemia COPD and lumbar spinal stenosis with chronic low back pain presented to [facility] on 10/27/2024 for an elective left heart cath following which patient was noted to have hyperglycemia and hyperkalemia. Specialist team was called for admission. Patient denies any complaints this afternoon other than his ongoing chronic low back pain. Patient denies any abdominal pain nausea or vomiting. Patient denies any chest pain or shortness of. Patient denies any blood in his urine or stool. 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 Past Surgical History Past Surgical History: Procedure Laterality Date CATARACT EXT/ECCE Bilateral 12/2012,07/2014 SKIN CANCER EXCISION 09/2021 L ear Family History Family History Problem Relation Age of Onset Coronary artery disease Father Alzheimer's disease Father Social History Social History Tobacco Use Smoking Status Every Day Current packs/day: 0.50 Average packs/day: 0.5 packs/day for 51.0 years (25.5 ttl pk-yrs) Types: Cigarettes Smokeless Tobacco Never Social History Substance and Sexual Activity Alcohol Use No Alcohol/week: 0.0 standard drinks of alcohol Social History Substance and Sexual Activity Drug Use No Allergy Information I have reviewed the patient's allergies. Agmvmbb-jml-gss reductase inhibitors Home Medications Home medications were reviewed. Review Of Systems All relevant systems have been reviewed and are negative except as noted in HPI or below Physical Examination BP 130/64 Pulse 85 Temp 98.1 F (36.7 C) (Oral) Resp 16 Ht 5' 7 Wt 65.8 kg (145 lb) SpO2 93% BMI 22.71 kg/m General Appearance: alert; well appearing; in no acute distress HEENT: Head- normocephalic; Eyes- EOMI, sclera anicteric; Throat- mucous membranes moist Cardiovascular: regular rate and rhythm; normal S1, S2; no murmurs, rubs, clicks or gallops; peripheral edema absent Respiratory: lungs clear to auscultation; without wheezes, rales or rhonchi; on room air Abdomen: soft, non-tender, non-distended Neurological: oriented x 3; normal speech; no focal findings or movement disorder noted Musculoskeletal: no significant deformity or tenderness to palpation Skin: normal coloration Psych: normal mood and affect INTERVAL HISTORY AND PHYSICAL Patient Name: Enoc Fernandes Admit Date: 12261205 MR #: [id number] : 1945 The H&P has been reviewed and the patient has been examined. I concur with the findings of the H&P. There are no significant changes. It is appropriate to proceed with the planned procedure. The risks and benefits of the procedure was explained. The risks reviewed includes but not limited to vascular damage, hematoma, infection, tamponade, allergic/anaphylactic reaction, acute renal insufficiency, need for emergency surgery, need for pacemaker, [place], stroke, or cardiac arrest/. Patient voiced understanding and agreed to proceed. Sedation Plan: Moderate ASA Classification: ASA 3: A patient with severe systemic disease. Mallampati Score: Class III: Only the soft palate is visible Elías Rodriguez MD 10/27/2024 8:17 AM Source Note - Woo Grigsby MD - 10/18/2024 1:20 PM EST General Cardiology New Patient Clinic Consult [facility] 10/18/2024 Woo Grigsby MD [address] [place] [address], 3rd Floor Medical Office [facility] [id number] Patient: Enoc Fernandes Date of : 1945 (78 y.o.) PCP: Ryley Jeter MD Date of Service: 10/18/2024 Chief Complaint: Follow-up, Fatigue, and Shortness of Breath (With activity) Assessment and Plan: 1. 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 Reported increase in systolic function however abnormal stress test, with symptoms of progressive, abnormal blood pressures concerning for coronary artery disease Have discussed with patient, will proceed with left heart catheterization given progressive symptoms 2. Dyslipidemia Tolerating Zetia with LDL now in the 60s 3. Abnormal arm blood pressures Concern for peripheral artery disease, will plan for segmental upper extremity duplex 4. Claudication With decreased pulses bilaterally, 1 plan for ERIN It has been a pleasure caring for this patient. Please don't hesitate to reach out to my office directly with any questions or concerns. Follow-up: No follow-ups on file. Woo Grigsby MD, [facility] Non-Invasive Cardiology [facility] P:[phone] F:[phone] History of Present Illness: Enoc Fernandes is a 78 y.o. man with a past medical history of insulin-dependent diabetes for 30 years, history of tobacco use, recent COVID infection with systolic dysfunction ejection fraction ranging from 35 to 45% who presented initially to [facility]. He underwent stress testing which showed inferior wall abnormality as well as ejection fraction of 50%. I initially met with him back in January and he was doing quite well, however today he presents with progressive symptoms of fatigue, malaise, and a recent heart failure exacerbation at [facility] for hypertensive emergency and acute flash pulmonary edema. Echocardiogram was done there with an ejection fraction of 60% however he was having problems with differential blood pressures ranging from high to low, and acute shortness of breath. He presents today with lower extremity weakness, heaviness as well as bilateral arm heaviness and weakness with chest pressure. He was prescribed Imdur as a temporizing measure and that has seemed to have helped. Objective Review of Systems: All systems were reviewed and are noted to be negative unless otherwise stated in HPI. 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 Past Surgical History: Procedure Laterality Date CATARACT EXT/ECCE Bilateral 12/2012,07/2014 SKIN CANCER EXCISION 09/2021 L ear Family History Problem Relation Age of Onset Coronary artery disease Father Alzheimer's disease Father Social History Tobacco Use Smoking Status Every Day Current packs/day: 0.50 Average packs/day: 0.5 packs/day for 51.0 years (25.5 ttl pk-yrs) Types: Cigarettes Smokeless Tobacco Never Allergies: Prednisone and Qucktwu-gxb-ywp reductase inhibitors All of the information has [...] sugar diagnostic (Contour Next Test Strips) strips, TEST BLOOD GLUCOSE FOUR TIMES DAILY E10.65 ., Disp: 150 strip, Rfl: 11 insulin glargine (Lantus Solostar U-100 Insulin) 100 unit/mL (3 mL) InPn, Inject 14 (fourteen) Units to 18 (eighteen) Units under the skin nightly ., Disp: 15 mL, Rfl: 11 insulin lispro 100 unit/mL InPn, Use as directed 8 units before breakfast, 9 units before lunch, 8 units before dinner ., Disp: 15 mL, Rfl: 11 isosorbide mononitrate (IMDUR) 30 MG 24 hr tablet, Take 1 (one) tablet (30 mg total) by mouth daily ., Disp: 30 tablet, Rfl: 0 lisinopriL (PRINIVIL,ZESTRIL) 5 MG tablet, Take 1 (one) tablet (5 mg total) by mouth daily ., Disp: , Rfl: metoprolol succinate (TOPROL-XL) 25 MG 24 hr tablet, Take 1 (one) tablet (25 mg total) by mouth daily ., Disp: 90 tablet, Rfl: 3 OXYGEN-AIR DELIVERY SYSTEMS MISC, Inhale 2 L/min See Admin Instructions ., Disp: , Rfl: tamsulosin (FLOMAX) 0.4 mg capsule, Take 1 (one) capsule (0.4 mg total) by mouth daily . (Patient taking differently: Take 1 (one) capsule (0.4 mg total) by mouth 4 (four) times a week .), Disp: 30 capsule, Rfl: 3 pen needle, diabetic (BD Ultra-Fine Jolynn Pen Needle) 32 gauge x 5/32 Ndle, Use as directed 4x daily Dx code E10.65 ., Disp: 400 each, Rfl: 4 Physical Exam: BP 103/61 (BP Location: Right arm, Patient Position: Sitting, BP Cuff Size: Adult) Pulse 67 Ht 5' 8 Wt 67.2 kg (148 lb 1.6 oz) SpO2 100% BMI 22.52 kg/m Constitutional: Elderly male, no acute distress however appears malaised head: Normocephalic and atraumatic. Eyes: Conjunctivae are normal, no scleral icterus, no corneal arcus Neck: No acanthosis nigricans, no elevated jugular venous distension, no hepatojugular reflux Cardiovascular: Regular rate and rhythm, no murmurs appreciated on today's exam, normal S1 and S2, no rubs or gallops, PMI is midline Pulses: +1 dorsalis pedis pulses bilaterally, +1 radial pulses bilaterally Musculoskeletal: Normal range of motion. No cyanosis. No peripheral Edema Neurological: AOx3, moving all extremities normally Skin: Skin is warm and dry, normal hair pattern Psychiatric: Normal mood and affect, appropriate conversation Cardiovascular Studies: Echocardiogram 10/04/2024 showed normal systolic function with no regional wall motion abnormalities, renal arterial duplex was normal Nov 2023/December 2023 Summary 1. Left ventricular chamber dimension is normal. 2. Left ventricular systolic function is normal with an ejection fraction by Biplane Method of Discs of 63 %. 3. The left ventricular diastolic function is grade I diastolic dysfunction, consistent with low or normal atrial pressures. Summary 1. Abnormal pharmacologic nuclear SPECT myocardial perfusion study. 2. No diagnostic ECG changes with regadenoson. 3. There is decreased radiotracer uptake within the basal-mid inferoseptal and distal anterior fuentes on stress imaging which is not present on rest imaging. This is suggestive of ischemia, but is not in a typical coronary distribution and may be in part due to a conduction abnormality. 4. Gated imaging demonstrates normal left ventricular size with septal hypokinesis and mild left ventricular systolic dysfunction, post-stress LVEF 50%, rest LVEF 51%. Echocardiogram reviewed from [facility] [...] underestimated. Labs: Lab Results Component Value Date GLUCOSE 82 12/01/2023 CALCIUM 8.9 12/01/2023 NA 142 12/01/2023 K 3.4 (L) 12/01/2023 CL 105 12/01/2023 BUN 26 (H) 12/01/2023 CREATININE 1.76 (H) 12/01/2023 Lab Results Component Value Date ALT 47 11/27/2023 AST 74 (H) 11/27/2023 ALKPHOS 97 11/27/2023 BILITOT 0.7 11/27/2023 Lab Results Component Value Date WBC 8.22 12/01/2023 HGB 12.0 (L) 12/01/2023 HCT 36.6 (L) 12/01/2023 MCV 92.9 12/01/2023 EXTMCV 91 06/08/2022 PLT 115 (L) 12/01/2023 RBC 3.94 (L) 12/01/2023 Lab Results Component Value Date CHOL 130 11/27/2023 LDLCALC 61 11/27/2023 TRIG 67 11/27/2023 HDL 56 11/27/2023 Lab Results Component Value Date HGBA1C 7.7 (H) 11/27/2023 Lab Results Component Value Date ALT 47 11/27/2023 AST 74 (H) 11/27/2023 ALKPHOS 97 11/27/2023 BILITOT 0.7 11/27/2023 The ASCVD Risk score (Dasha SIMS, et al., 2019) failed to calculate for the following reasons: The 2019 ASCVD risk score is only valid for ages 40 to 79 Risk score cannot be calculated because patient has a medical history suggesting prior/existing ASCVD documented in this encounter [facility] 10-27-2024 Progress note Formatting of t his note might be different from the original. Consultation for possible surgical revascularization of the heart received from cardiology, Dr. Estefany Rodriguez. Preoperative diagnostic studies currently in progress. In review of serum laboratory studies, patient is found to be hyperkalemic with a serum potassium of 6.3; stat repeat serum potassium is been ordered. Hyperglycemia noted at 467. Updated Dr. Rodriguez of the aforementioned serum laboratory studies. At this time, consultation is placed to hospitalist for admission to observation status for evaluation and treatment. Admitting hospitalist notified. Patient currently is receiving IV fluids for known stage IV kidney disease, BUN/creatinine: 92/2.60 respectively. [facility] 10-27-2024 Progress note Formatting of t his note might be different from the original. Dr Rodriguez notified and at bedside to speak to patient r/g Critical potasium and elevated glucose. [facility] 10-27-2024 Attending History and physical note INTERVAL HISTORY AND PHYSICAL Patient Name: Enoc Fernandes Admit Date: 12261205 MR #: [id number] : 1945 The H&P has been reviewed and the patient has been examined. I concur with the findings of the H&P. There are no significant changes. It is appropriate to proceed with the planned procedure. The risks and benefits of the procedure was explained. The risks reviewed includes but not limited to vascular damage, hematoma, infection, tamponade, allergic/anaphylactic reaction, acute renal insufficiency, need for emergency surgery, need for pacemaker, [place], stroke, or cardiac arrest/. Patient voiced understanding and agreed to proceed. Sedation Plan: Moderate ASA Classification: ASA 3: A patient with severe systemic disease. Mallampati Score: Class III: Only the soft palate is visible Elías Rodriguez MD 10/27/2024 8:17 AM Source Note - Woo Grigsby MD - 10/18/2024 1:20 PM EST General Cardiology New Patient Clinic Consult [facility] 10/18/2024 Woo Grigsby MD [address] [place] [address] 3rd Floor Medical Office [facility] [address] Patient: Enoc Fernandes Date of : 1945 (78 y.o.) PCP: Ryley Jeter MD Date of Service: 10/18/2024 Chief Complaint: Follow-up, Fatigue, and Shortness of Breath (With activity) Assessment and Plan: 1. 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 Reported increase in systolic function however abnormal stress test, with symptoms of progressive, abnormal blood pressures concerning for coronary artery disease Have discussed with patient, will proceed with left heart catheterization given progressive symptoms 2. Dyslipidemia Tolerating Zetia with LDL now in the 60s 3. Abnormal arm blood pressures Concern for peripheral artery disease, will plan for segmental upper extremity duplex 4. Claudication With decreased pulses bilaterally, 1 plan for ERIN It has been a pleasure caring for this patient. Please don't hesitate to reach out to my office directly with any questions or concerns. Follow-up: No follow-ups on file. Woo Grigsby MD, FACC Non-Invasive Cardiology [facility] P:[phone] F:[phone] History of Present Illness: Enoc Fernandes is a 78 y.o. man with a past medical history of insulin-dependent diabetes for 30 years, history of tobacco use, recent COVID infection with systolic dysfunction ejection fraction ranging from 35 to 45% who presented initially to community health care. He underwent stress testing which showed inferior wall abnormality as well as ejection fraction of 50%. I initially met with him back in January and he was doing quite well, however today he presents with progressive symptoms of fatigue, malaise, and a recent heart failure exacerbation at [facility] for hypertensive emergency and acute flash pulmonary edema. Echocardiogram was done there with an ejection fraction of 60% however he was having problems with differential blood pressures ranging from high to low, and acute shortness of breath. He presents today with lower extremity weakness, heaviness as well as bilateral arm heaviness and weakness with chest pressure. He was prescribed Imdur as a temporizing measure and that has seemed to have helped. Objective Review of Systems: All systems were reviewed and are noted to be negative unless otherwise stated in HPI. 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 Past Surgical History: Procedure Laterality Date CATARACT EXT/ECCE Bilateral 12/2012,07/2014 SKIN CANCER EXCISION 09/2021 L ear Family History Problem Relation Age of Onset Coronary artery disease Father Alzheimer's disease Father Social History Tobacco Use Smoking Status Every Day Current packs/day: 0.50 Average packs/day: 0.5 packs/day for 51.0 years (25.5 ttl pk-yrs) Types: Cigarettes Smokeless Tobacco Never Allergies: Prednisone and Kfnqnae-rsq-aly reductase inhibitors All of the information has [...] sugar diagnostic (Contour Next Test Strips) strips, TEST BLOOD GLUCOSE FOUR TIMES DAILY E10.65 ., Disp: 150 strip, Rfl: 11 insulin glargine (Lantus Solostar U-100 Insulin) 100 unit/mL (3 mL) InPn, Inject 14 (fourteen) Units to 18 (eighteen) Units under the skin nightly ., Disp: 15 mL, Rfl: 11 insulin lispro 100 unit/mL InPn, Use as directed 8 units before breakfast, 9 units before lunch, 8 units before dinner ., Disp: 15 mL, Rfl: 11 isosorbide mononitrate (IMDUR) 30 MG 24 hr tablet, Take 1 (one) tablet (30 mg total) by mouth daily ., Disp: 30 tablet, Rfl: 0 lisinopriL (PRINIVIL,ZESTRIL) 5 MG tablet, Take 1 (one) tablet (5 mg total) by mouth daily ., Disp: , Rfl: metoprolol succinate (TOPROL-XL) 25 MG 24 hr tablet, Take 1 (one) tablet (25 mg total) by mouth daily ., Disp: 90 tablet, Rfl: 3 OXYGEN-AIR DELIVERY SYSTEMS [facility], Inhale 2 L/min See Admin Instructions ., Disp: , Rfl: tamsulosin (FLOMAX) 0.4 mg capsule, Take 1 (one) capsule (0.4 mg total) by mouth daily . (Patient taking differently: Take 1 (one) capsule (0.4 mg total) by mouth 4 (four) times a week .), Disp: 30 capsule, Rfl: 3 pen needle, diabetic (BD Ultra-Fine Jolynn Pen Needle) 32 gauge x 5/32 Ndle, Use as directed 4x daily Dx code E10.65 ., Disp: 400 each, Rfl: 4 Physical Exam: BP 103/61 (BP Location: Right arm, Patient Position: Sitting, BP Cuff Size: Adult) Pulse 67 Ht 5' 8 Wt 67.2 kg (148 lb 1.6 oz) SpO2 100% BMI 22.52 kg/m Constitutional: Elderly male, no acute distress however appears malaised head: Normocephalic and atraumatic. Eyes: Conjunctivae are normal, no scleral icterus, no corneal arcus Neck: No acanthosis nigricans, no elevated jugular venous distension, no hepatojugular reflux Cardiovascular: Regular rate and rhythm, no murmurs appreciated on today's exam, normal S1 and S2, no rubs or gallops, PMI is midline Pulses: +1 dorsalis pedis pulses bilaterally, +1 radial pulses bilaterally Musculoskeletal: Normal range of motion. No cyanosis. No peripheral Edema Neurological: AOx3, moving all extremities normally Skin: Skin is warm and dry, normal hair pattern Psychiatric: Normal mood and affect, appropriate conversation Cardiovascular Studies: Echocardiogram 10/04/2024 showed normal systolic function with no regional wall motion abnormalities, renal arterial duplex was normal Nov 2023/December 2023 Summary 1. Left ventricular chamber dimension is normal. 2. Left ventricular systolic function is normal with an ejection fraction by Biplane Method of Discs of 63 %. 3. The left ventricular diastolic function is grade I diastolic dysfunction, consistent with low or normal atrial pressures. Summary 1. Abnormal pharmacologic nuclear SPECT myocardial perfusion study. 2. No diagnostic ECG changes with regadenoson. 3. There is decreased radiotracer uptake within the basal-mid inferoseptal and distal anterior fuentes on stress imaging which is not present on rest imaging. This is suggestive of ischemia, but is not in a typical coronary distribution and may be in part due to a conduction abnormality. 4. Gated imaging demonstrates normal left ventricular size with septal hypokinesis and mild left ventricular systolic dysfunction, post-stress LVEF 50%, rest LVEF 51%. [facility] reviewed from [facility] [...] underestimated. Labs: Lab Results Component Value Date GLUCOSE 82 12/01/2023 CALCIUM 8.9 12/01/2023 NA 142 12/01/2023 K 3.4 (L) 12/01/2023 CL 105 12/01/2023 BUN 26 (H) 12/01/2023 CREATININE 1.76 (H) 12/01/2023 Lab Results Component Value Date ALT 47 11/27/2023 AST 74 (H) 11/27/2023 ALKPHOS 97 11/27/2023 BILITOT 0.7 11/27/2023 Lab Results Component Value Date WBC 8.22 12/01/2023 HGB 12.0 (L) 12/01/2023 HCT 36.6 (L) 12/01/2023 MCV 92.9 12/01/2023 EXTMCV 91 06/08/2022 PLT 115 (L) 12/01/2023 RBC 3.94 (L) 12/01/2023 Lab Results Component Value Date CHOL 130 11/27/2023 LDLCALC 61 11/27/2023 TRIG 67 11/27/2023 HDL 56 11/27/2023 Lab Results Component Value Date HGBA1C 7.7 (H) 11/27/2023 Lab Results Component Value Date ALT 47 11/27/2023 AST 74 (H) 11/27/2023 ALKPHOS 97 11/27/2023 BILITOT 0.7 11/27/2023 The ASCVD Risk score (Magnolia DK, et al., 2019) failed to calculate for the following reasons: The 2019 ASCVD risk score is only valid for ages 40 to 79 Risk score cannot be calculated because patient has a medical history suggesting prior/existing ASCVD [facility] Work Phone: 10-27-2024 Hospital Discharge instructions Sonya King RN - 10/27/2024 8:16 AM EST [facility] Post Cardiac Catheterization Discharge Instructions Site Care Leave Bandage in place the night of your catheterization. Watch for any bleeding or oozing from the site. If this occurs, lie flat and place direct pressure on the bandage for 20 minutes. If bleeding reoccurs call [facility]. For groins, remove your bandage the following morning and apply a Band-Aid over the site, so it has a complete seal over the area. This is to be done for 5 days with a new Band-Aid each time. Soreness and bruising are to expected. For wrist and arms, remove your bandage the following morning and apply a Band-Aid over the site, so it has a complete seal over the area. This is to be done for 5 days with a new Band-Aid each time. Soreness and bruising are to be expected. Do not submerge catheterization site in water for 5 to 7 days following the procedure. Examples include bathing, swimming, sitting in a Jacuzzi or dishwashing. You may shower 24 hours after the procedure. Call [facility] at [phone] if you notice any of the following: Bleeding or increased swelling at the puncture site Redness Drainage (either pus or blood) Increased soreness around the wound A fever over 100 F Numbness, coldness, color change, or tingling pain in your arm or leg below the wound Light headedness, dizziness, weakness of arms or legs, or difficulty with speech Chest pain, pressure, tightness or burning in the chest, arm jaw or stomach Activity Limit your activity following the catheterization as follows: No lifting over 10 pounds for 2 days if done by groin No lifting over 5 pounds for 7 days if done by wrist. Do not manipulate the wrist for 24 hours No running, jogging, climbing (more than a few stairs) for 7 days No driving or operating heavy machinery for a minimum of 48 hours Do Not Smoke or use tobacco products for 24 hours after the procedure Discuss any other activity concerns with the nurse or physician Medications Continue taking all the current medications as directed on medication reconciliation record or unless otherwise instructed to by your physician. If you do not have prescription coverage and are in need of prescription assistance, please notify the [facility] nurse or call the office. If you were prescribed Plavix (clopidogrel), Effient (prasugrel), or Brilinta (ticagrelar) after your procedure, DO NOT STOP taking this medication unless told to do so by your [facility] chief of pediatric urology. Follow up appointments, tests or procedures will be on your discharge paperwork under What's next. Please call [facility] at [phone] to reschedule any appointments if needed or if you have any questions or concerns. Thank you! documented in this encounter [facility] 10-18-2024 Instructions Luisa Easley RN - 10/18/2024 1:27 PM EST How to Contact your Care Team: Provider: Dr. Woo Grigsby MD Clinic Nurse: Luisa Vega RN Clinic MA: Ej Guidry MA REFILLS: When in need for refills please call your care team or the office at [phone]. Please include medication name, pharmacy name, and specify 30-day or 90-day supply. Please check with your pharmacy within 24 hours of request for your refill. You must follow up as directed to continue current refills. Thank you! Heart Catheterization Date of your procedure: 10/27/2024 at 8:00am Please arrive at [facility]. Please park in the garage next to the medical office building. If needed, sales communications manager parking is available at the front entrance of the hospital. Please report to the first floor visitor information desk inside the main entrance of the hospital to get registered. DO NOT eat or drink anything after midnight on: 10/26/2024 The morning of your procedure you should take your medications with as little water as possible. Bring a list of all medications you take along with dosage and frequency that you take the medications. If you are currently on Plavix (clopidigrel), Effient (prasugrel), or Brilinta (ticagrelor), please be sure to take your medication, along with your daily aspirin, the morning of your procedure. If your are insulin-dependent diabetic and your arrival time is 6:30 AM, do not take your insulin. If your arrival time is after 6:30AM, you should take only one-half your usual dose of insulin the morning of your procedure. No smoking or use of products containing nicotine for 24 hours prior to your procedure. This includes NO chewing tobacco, cigarettes, cigars, or vaping. You will be given a sedative for the procedure and therefore you will not be able to drive home. Please have a ride arranged. Please be advised that occasionally you may experience significant delays for up to several hours due to emergencies and/or unavoidable circumstances. If you have any questions or concerns please contact us at [phone]. documented in this encounter [facility] 10-18-2024 History of Present illness Narrative General Cardiology New Patient Clinic Consult [facility], Heart & Vascular 10/18/2024 Woo Grigsby MD [address] [place] [address] 3rd Floor Medical Office [facility] [address] Patient: Enoc Fernandes Date of : 1945 (78 y.o.) PCP: Ryley Jeter MD Date of Service: 10/18/2024 Chief Complaint: Follow-up, Fatigue, and Shortness of Breath (With activity) Assessment and Plan: 1. 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 Reported increase in systolic function however abnormal stress test, with symptoms of progressive, abnormal blood pressures concerning for coronary artery disease Have discussed with patient, will proceed with left heart catheterization given progressive symptoms 2. Dyslipidemia Tolerating Zetia with LDL now in the 60s 3. Abnormal arm blood pressures Concern for peripheral artery disease, will plan for segmental upper extremity duplex 4. Claudication With decreased pulses bilaterally, 1 plan for ERIN It has been a pleasure caring for this patient. Please don't hesitate to reach out to my office directly with any questions or concerns. Follow-up: No follow-ups on file. Woo Grigsby MD, [facility] Non-Invasive Cardiology [facility] P:[phone] F:[phone] History of Present Illness: Enoc Fernandes is a 78 y.o. man with a past medical history of insulin-dependent diabetes for 30 years, history of tobacco use, recent COVID infection with systolic dysfunction ejection fraction ranging from 35 to 45% who presented initially to [facility]. He underwent stress testing which showed inferior wall abnormality as well as ejection fraction of 50%. I initially met with him back in January and he was doing quite well, however today he presents with progressive symptoms of fatigue, malaise, and a recent heart failure exacerbation at [facility] for hypertensive emergency and acute flash pulmonary edema. Echocardiogram was done there with an ejection fraction of 60% however he was having problems with differential blood pressures ranging from high to low, and acute shortness of breath. He presents today with lower extremity weakness, heaviness as well as bilateral arm heaviness and weakness with chest pressure. He was prescribed Imdur as a temporizing measure and that has seemed to have helped. Objective Review of Systems: All systems were reviewed and are noted to be negative unless otherwise stated in HPI. 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 Past Surgical History: Procedure Laterality Date CATARACT EXT/ECCE Bilateral 12/2012,07/2014 SKIN CANCER EXCISION 09/2021 L ear Family History Problem Relation Age of Onset Coronary artery disease Father Alzheimer's disease Father Social History Tobacco Use Smoking Status Every Day Current packs/day: 0.50 Average packs/day: 0.5 packs/day for 51.0 years (25.5 ttl pk-yrs) Types: Cigarettes Smokeless Tobacco Never Allergies: Prednisone and Ygvmjrr-ccp-pgb reductase inhibitors All of the information has [...] sugar diagnostic (Contour Next Test Strips) strips, TEST BLOOD GLUCOSE FOUR TIMES DAILY E10.65 ., Disp: 150 strip, Rfl: 11 insulin glargine (Lantus Solostar U-100 Insulin) 100 unit/mL (3 mL) InPn, Inject 14 (fourteen) Units to 18 (eighteen) Units under the skin nightly ., Disp: 15 mL, Rfl: 11 insulin lispro 100 unit/mL InPn, Use as directed 8 units before breakfast, 9 units before lunch, 8 units before dinner ., Disp: 15 mL, Rfl: 11 isosorbide mononitrate (IMDUR) 30 MG 24 hr tablet, Take 1 (one) tablet (30 mg total) by mouth daily ., Disp: 30 tablet, Rfl: 0 lisinopriL (PRINIVIL,ZESTRIL) 5 MG tablet, Take 1 (one) tablet (5 mg total) by mouth daily ., Disp: , Rfl: metoprolol succinate (TOPROL-XL) 25 MG 24 hr tablet, Take 1 (one) tablet (25 mg total) by mouth daily ., Disp: 90 tablet, Rfl: 3 OXYGEN-AIR DELIVERY SYSTEMS MISC, Inhale 2 L/min See Admin Instructions ., Disp: , Rfl: tamsulosin (FLOMAX) 0.4 mg capsule, Take 1 (one) capsule (0.4 mg total) by mouth daily . (Patient taking differently: Take 1 (one) capsule (0.4 mg total) by mouth 4 (four) times a week .), Disp: 30 capsule, Rfl: 3 pen needle, diabetic (BD Ultra-Fine Jolynn Pen Needle) 32 gauge x 5/32 Ndle, Use as directed 4x daily Dx code E10.65 ., Disp: 400 each, Rfl: 4 Physical Exam: BP 103/61 (BP Location: Right arm, Patient Position: Sitting, BP Cuff Size: Adult) Pulse 67 Ht 5' 8 Wt 67.2 kg (148 lb 1.6 oz) SpO2 100% BMI 22.52 kg/m Constitutional: Elderly male, no acute distress however appears malaised head: Normocephalic and atraumatic. Eyes: Conjunctivae are normal, no scleral icterus, no corneal arcus Neck: No acanthosis nigricans, no elevated jugular venous distension, no hepatojugular reflux Cardiovascular: Regular rate and rhythm, no murmurs appreciated on today's exam, normal S1 and S2, no rubs or gallops, PMI is midline Pulses: +1 dorsalis pedis pulses bilaterally, +1 radial pulses bilaterally Musculoskeletal: Normal range of motion. No cyanosis. No peripheral Edema Neurological: AOx3, moving all extremities normally Skin: Skin is warm and dry, normal hair pattern Psychiatric: Normal mood and affect, appropriate conversation Cardiovascular Studies: Echocardiogram 10/04/2024 showed normal systolic function with no regional wall motion abnormalities, renal arterial duplex was normal Nov 2023/December 2023 Summary 1. Left ventricular chamber dimension is normal. 2. Left ventricular systolic function is normal with an ejection fraction by Biplane Method of Discs of 63 %. 3. The left ventricular diastolic function is grade I diastolic dysfunction, consistent with low or normal atrial pressures. Summary 1. Abnormal pharmacologic nuclear SPECT myocardial perfusion study. 2. No diagnostic ECG changes with regadenoson. 3. There is decreased radiotracer uptake within the basal-mid inferoseptal and distal anterior fuentes on stress imaging which is not present on rest imaging. This is suggestive of ischemia, but is not in a typical coronary distribution and may be in part due to a conduction abnormality. 4. Gated imaging demonstrates normal left ventricular size with septal hypokinesis and mild left ventricular systolic dysfunction, post-stress LVEF 50%, rest LVEF 51%. Echocardiogram reviewed from [facility] [...] underestimated. Labs: Lab Results Component Value Date GLUCOSE 82 12/01/2023 CALCIUM 8.9 12/01/2023 NA 142 12/01/2023 K 3.4 (L) 12/01/2023 CL 105 12/01/2023 BUN 26 (H) 12/01/2023 CREATININE 1.76 (H) 12/01/2023 Lab Results Component Value Date ALT 47 11/27/2023 AST 74 (H) 11/27/2023 ALKPHOS 97 11/27/2023 BILITOT 0.7 11/27/2023 Lab Results Component Value Date WBC 8.22 12/01/2023 HGB 12.0 (L) 12/01/2023 HCT 36.6 (L) 12/01/2023 MCV 92.9 12/01/2023 EXTMCV 91 06/08/2022 PLT 115 (L) 12/01/2023 RBC 3.94 (L) 12/01/2023 Lab Results Component Value Date CHOL 130 11/27/2023 LDLCALC 61 11/27/2023 TRIG 67 11/27/2023 HDL 56 11/27/2023 Lab Results Component Value Date HGBA1C 7.7 (H) 11/27/2023 Lab Results Component Value Date ALT 47 11/27/2023 AST 74 (H) 11/27/2023 ALKPHOS 97 11/27/2023 BILITOT 0.7 11/27/2023 The ASCVD Risk score (Dasha SIMS, et al., 2019) failed to calculate for the following reasons: The 2019 ASCVD risk score is only valid for ages 40 to 79 Risk score cannot be calculated because patient has a medical history suggesting prior/existing ASCVD documented in this encounter [facility] 10-18-2024 Note General Cardiology N ew Patient Clinic Consult [facility], Heart & Vascular 10/18/2024 Woo Grigsby MD [address], 3rd Floor Medical Office Building [facility] [address] Patient: Enoc Fernandes Date of : 1945 (78 y.o.) PCP: Ryley Jeter MD Date of Service: 10/18/2024 Chief Complaint: Follow-up, Fatigue, and Shortness of Breath (With activity) Assessment and Plan: 1. 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 Reported increase in systolic function however abnormal stress test, with symptoms of progressive, abnormal blood pressures concerning for coronary artery disease Have discussed with patient, will proceed with left heart catheterization given progressive symptoms 2. Dyslipidemia Tolerating Zetia with LDL now in the 60s 3. Abnormal arm blood pressures Concern for peripheral artery disease, will plan for segmental upper extremity duplex 4. Claudication With decreased pulses bilaterally, 1 plan for ERIN It has been a pleasure caring for this patient. Please don't hesitate to reach out to my office directly with any questions or concerns. Follow-up: No follow-ups on file. Woo Grigsby MD, [facility] Non-Invasive Cardiology [facility] P:[phone] F:[phone] ---- History of Present Illness: Enoc Fernandes is a 78 y.o. man with a past medical history of insulin-dependent diabetes for 30 years, history of tobacco use, recent COVID infection with systolic dysfunction ejection fraction ranging from 35 to 45% who presented initially to community health care. He underwent stress testing which showed inferior wall abnormality as well as ejection fraction of 50%. I initially met with him back in January and he was doing quite well, however today he presents with progressive symptoms of fatigue, malaise, and a recent heart failure exacerbation at [facility] for hypertensive emergency and acute flash pulmonary edema. Echocardiogram was done there with an ejection fraction of 60% however he was having problems with differential blood pressures ranging from high to low, and acute shortness of breath. He presents today with lower extremity weakness, heaviness as well as bilateral arm heaviness and weakness with chest pressure. He was prescribed Imdur as a temporizing measure and that has seemed to have helped. Objective Review of Systems: All systems were reviewed and are noted to be negative unless otherwise stated in HPI. 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 Past Surgical History: Procedure Laterality Date CATARACT EXT/ECCE Bilateral 12/2012,07/2014 SKIN CANCER EXCISION 09/2021 L ear Family History Problem Relation Age of Onset Coronary artery disease Father Alzheimer's disease Father Social History Tobacco Use Smoking Status Every Day Current packs/day: 0.50 Average packs/day: 0.5 packs/day for 51.0 years (25.5 ttl pk-yrs) Types: Cigarettes Smokeless Tobacco Never Allergies: Prednisone and Yyxxiyq-lmr-sge reductase inhibitors All of the information has [...] sugar diagnostic (Contour Next Test Strips) strips, TEST BLOOD GLUCOSE FOUR TIMES DAILY E10.65 ., Disp: 150 strip, Rfl: 11 insulin glargine (Lantus Solostar U-100 Insulin) 100 unit/mL (3 mL) InPn, Inject 14 (fourteen) Units to 18 (eighteen) Units under the skin nightly ., Disp: 15 mL, Rfl: 11 insulin lispro 100 unit/mL InPn, Use as directed 8 units before breakfast, 9 units before lunch, 8 units before dinner ., Disp: 15 mL, Rfl: 11 isosorbide mononitrate (IMDUR) 30 MG 24 hr tablet, Take 1 (one) tablet (30 mg total) by mouth daily ., Disp: 30 tablet, Rfl: 0 lisinopriL (PRINIVIL,ZESTRIL) 5 MG tablet, Take 1 (one) tablet (5 mg total) by mouth daily ., Disp: , Rfl: metoprolol succinate (TOPROL-XL) 25 MG 24 hr tablet, Take 1 (one) tablet (25 mg total) by mouth daily ., Disp: 90 tablet, Rfl: 3 OXYGEN-AIR DELIVERY SYSTEMS MISC, Inhale 2 L/min See Admin Instructions ., Disp: , Rfl: tamsulosin (FLOMAX) 0.4 mg capsule, Take 1 ( (more content not included)... [facility] 10-06-2024 Telephone encounter Note Spoke with pt and reviewed Dr. Grigsby's comments and suggestions. Pt was agreeable to starting Imdur 30mg daily and confirmed appt with Dr. Grigsby on 10/18 at 1:20pm in the [place] location. Pt expressed appreciation and understanding. [facility] 10-06-2024 Telephone encounter Note ----- Message from Yadira Grigsby sent at 10/05/2024 4:33 PM EST ----- So the 1 thing I am really worried about is does he have multivessel coronary disease Patient's that present with hypertensive emergency like that that is very labile can be a sign of multivessel coronary disease He had a CT scan a few months ago demonstrating multivessel dense coronary calcification He had a stress test back in December that was somewhat abnormal, though nothing really specific which again is usually a sign of multivessel coronary disease. A lot of the times when 3 vessels are involved abnormalities can be difficult to pick up worker Would he be okay coming in the week that I am rounding to discuss maybe doing a left heart catheterization? Or if he would be okay with just going straight for left heart catheterization next week, but I think I probably should see him because it has been about 6 months In the meantime, we could consider starting Imdur 30 mg just to help with angina or prevent any future episodes of flash pulmonary edema/hypertensive emergency ----- Message ----- From: Luisa Easley RN Sent: 10/04/2024 2:07 PM EST To: Woo Grigsby MD We received everything from [facility] on [facility]-I know we were waiting on this to see about changing things up ----- Message ----- From: Ej Guidry MA Sent: 10/04/2024 2:01 PM EST To: Luisa Easley RN Records from [facility] 10-06-2024 Miscellaneous Notes Spoke with pt and reviewed Dr. Grigsby's comments and suggestions. Pt was agreeable to starting Imdur 30mg daily and confirmed appt with Dr. Grigsby on 10/18 at 1:20pm in the [place] location. Pt expressed appreciation and understanding. ----- Message from Yadira Grigsby sent at 10/05/2024 4:33 PM EST ----- So the 1 thing I am really worried about is does he have multivessel coronary disease Patient's that present with hypertensive emergency like that that is very labile can be a sign of multivessel coronary disease He had a CT scan a few months ago demonstrating multivessel dense coronary calcification He had a stress test back in December that was somewhat abnormal, though nothing really specific which again is usually a sign of multivessel coronary disease. A lot of the times when 3 vessels are involved abnormalities can be difficult to pick up worker Would he be okay coming in the week that I am rounding to discuss maybe doing a left heart catheterization? Or if he would be okay with just going straight for left heart catheterization next week, but I think I probably should see him because it has been about 6 months In the meantime, we could consider starting Imdur 30 mg just to help with angina or prevent any future episodes of flash pulmonary edema/hypertensive emergency ----- Message ----- From: Luisa Easley RN Sent: 10/04/2024 2:07 PM EST To: Woo Grigsby MD We received everything from [facility]-I know we were waiting on this to see about changing things up ----- Message ----- From: Ej Guidry MA Sent: 10/04/2024 2:01 PM EST To: Luisa Easley RN Records from [facility] documented in this encounter [facility] 09-14-2024 Note [facility] Medical Records Department [address] [place] [address] Discharge Summary 09/14/24 0738 MR#: [id number] Acct: [id number] Name: ENOC FERNANDES Rep #: [id number] : 1945 78 From: Nancy Bhatt MD PCP: Dr. Ryley Jeter MD Status:ADM IN Location: ICU [id number] Providers Date of Admission: 09/12/24 Date of Discharge: 09/14/24 Primary Care Physician: Ryley Jeter MD Reason For Visit: HYPERTENSIVE EMERGENCY-PULMONARY EDEMA Diagnosis Discharge Diagnosis (1) Hypertensive emergency: Status: Acute Code(s): I16.1 - Hypertensive emergency (2) Flash pulmonary edema: Status: Acute Code(s): J81.0 - Acute pulmonary edema (3) Acute hypoxemic respiratory failure: Status: Acute Code(s): J96.01 - Acute respiratory failure with hypoxia Plan Patient is an 78-year-old gentleman with history of chronic hypoxic respiratory failure who presented with progressive shortness of breath. He was apparently found to be hypoxic saturating 72% on 3 L. An assessment of acute hypoxic respiratory failure made admitted to a monitored bed for further management. 1. Acute hypoxic respiratory failure ??? Secondary to flash pulmonary edema. Patient was started on noninvasive ventilation via BiPAP admitted to the intensive care unit for further management ??? 09/13/2024 patient has been weaned off BiPAP placed on supplemental oxygen 2. Acute congestive heart failure with preserved ejection fraction ??? Imaging studies obtained on admission did show Bilateral interstitial and alveolar opacities especially in the lower lobes, with small pleural effusions. Patient presented with significant respiratory distress. Admitted to the intensive care unit started on strict input and output, daily weight, low-sodium diet, fluid restriction as well as IV diuretic therapy.2D echo ordered for EF assessment ??? 09/13/2024; 2D echo demonstrated Left ventricular systolic function is normal. The left ventricular ejection fraction is 60 %. There is moderate to severe mitral annular calcification. Pulmonary artery systolic pressure is 51 mmHg. ??? 09/14/2024 patient was discharged on furosemide 40 mg p.o. twice daily 3. Acute hypertensive emergency ??? Patient blood pressure was as high as 227/99 was started on nitroglycerin drip admitted to the intensive care unit plan is to wean once blood pressure falls below 160 ??? 09/13/2024; patient has been weaned off nitro. Patient to undergo further evaluation with a renal artery duplex to rule out renal artery stenosis ??? 09/14/2024; ultrasound was negative for renal artery stenosis patient was discharged with addition of hydralazine 50 mg twice daily to his antihypertensive regimen 4. Diabetes mellitus type 2 ??? Patient is on long-acting insulin with U-500 8 continue with home dose also placed on Accu-Cheks before meals and at bedtime with sliding scale coverage 5. BPH with lower urinary obstructive symptoms - Patient treated with tamsulosin 6. Chronic hypoxic respiratory failure ??? Patient is on baseline home oxygen 7. Dyslipidemia ??? Patient is on his Antiminth 10 mg daily continue 8. Chronic kidney disease stage IV ??? Baseline creatinine has been fluctuating between 2-1.8. Creatinine on admission was 1.86 we will continue with monitoring with daily BMPs 9. Elevated troponin ??? Thought to be secondary to demand ischemia from above 10. Leukocytosis ??? Etiology unclear checks x-ray did not show any infiltrate;Will continue to monitor 11. Tobacco dependence ??? Counseled on cessation, offered nicotine patch for tobacco cravings 12. DVT prophylaxis ??? SC heparin Time spent in the patient's overall evaluation,decision-making process, review of diagnostic data, adjustment of management, discussion with other providers, nursing nursing and ancillary staff involved in patient's care documentation, 35 minutes Medications at Discharge Home Medications amlodipine 10 mg tablet (Norvasc) 10 mg PO 1200 08/05/21 aspirin 81 mg tablet,delayed release 81 mg PO DAILY 08/05/21 insulin glargine 100 unit/mL (3 mL) subcutaneous pen (Lantus Solostar U-100 Insulin) 15 unit subcut QPM 08/05/21 insulin lispro 100 unit/mL subcutaneous pen 0 unit subcut TID SLIDING SCALE 08/05/21 tamsulosin 0.4 mg capsule (Flomax) 0.4 mg PO .COMPLEX urination 08/05/21 ezetimibe 10 mg tablet 10 mg PO DAILY 04/06/24 lisinopril 5 mg tablet 5 mg PO DAILY 04/06/24 metoprolol succinate 25 mg tablet,extended release 24 hr 25 mg PO DAILY 04/06/24 blood sugar diagnostic (Contour Next Test Strips) 09/12/24 furosemide 40 mg tablet (Lasix) 40 mg PO BID #120 tabs 09/14/24 hydralazine 50 mg tablet 50 mg PO BID 60 days #120 tabs 09/14/24 potassium chloride 20 mEq tablet,extended release(part/cryst) 20 meq PO BIDCM 30 days #60 tabs 09/14/24 Physical Exam Narrative GENERAL: [employer] (more content not included)... [facility] 09-12-2024 Note [facility] Medical Records Department [address] [place] [address] History Physical Exam 09/12/24 05 MR#: [id number] Acct: [id number] Name: ENOC FERNANDES Rep #: [id number] : 1945 78 From: Young Koroma MD PCP: Dr. Ryley Jeter MD Status:ADM IN Location: ICU [id number] HPI - General General Date of Admission: 09/12/24 Date of Service: 09/12/24 Chief Complaint: Shortness of breath HPI Narrative ENOC FERNANDES, is a 78 M who presents to the emergency room with acute onset of shortness of breath. Symptoms began at 10:00 this evening while he was at rest and patient describes feeling suddenly short of breath. He denies chest pain, fevers and/or chills and/or nausea or vomiting at this time. Patient was noted to be hypoxic by EMS and was tachypneic upon arrival. Patient was placed on BiPAP and nitroglycerin drip in the emergency room and is started to improve. Patient was initially noted to be hypertensive with a blood pressure of 220 but subsequently improved after nitroglycerin drip and BiPAP currently blood pressures in the 160s to 170 range. Laboratory studies show a CBC of elevated white blood cell count of 24,000, hemoglobin of 13.1, hematocrit 38.9, platelets 22.7. BMP shows sodium 138, potassium 4.1, chloride 105, bicarb 22, BUN 27, creatinine 1.86, glucose 369, BN TP of 903.4. Chest x-ray shows small pleural effusions with pulmonary edema and possible infection. Will admit patient to ICU to continue BiPAP therapy initiated in the emergency room along with nitroglycerin drip. Will hold off initiation of antibiotic therapy due to more suspected flash pulmonary edema secondary to hypertension and heart failure. [facility] Medical History Pneumonia COVID Wears glasses Wears dentures Insulin dependent diabetes mellitus Prostate disease Easy bruising Back pain Dietary restriction Smoker History of pain when walking History of stress test Cardiology follow-up encounter Hypertension Home Medications ???Medication ???Instructions ???Recorded ???Last Taken ???Type amlodipine 10 mg tablet (Norvasc) 10 mg PO 1200 08/05/21 08/12/21 History aspirin 81 mg tablet,delayed 81 mg PO DAILY 08/05/21 Unknown History release insulin glargine 100 unit/mL (3 15 unit subcut QPM 08/05/21 Unknown History mL) subcutaneous pen (Lantus Solostar U-100 Insulin) insulin lispro 100 unit/mL 0 unit subcut TID SLIDING SCALE 08/05/21 Unknown History subcutaneous pen tamsulosin 0.4 mg capsule (Flomax) 0.4 mg PO .COMPLEX urination 08/05/21 Unknown History ezetimibe 10 mg tablet 10 mg PO DAILY 04/06/24 Unknown History furosemide 20 mg tablet 20 mg PO BID 04/06/24 Unknown History lisinopril 5 mg tablet 5 mg PO DAILY 04/06/24 Unknown History metoprolol succinate 25 mg 25 mg PO DAILY 04/06/24 Unknown History tablet,extended release 24 hr blood sugar diagnostic (Contour 09/12/24 Unknown History Next Test Strips) Allergy/AdvReac Type Severity Reaction Status Date / Time Corticosteroids AdvReac Other Verified 04/06/24 14:38 (Glucocorticoids) (steroids) Uhdygrz-HOD-OtF Reductase AdvReac Other Verified 04/06/24 14:38 Inhibitor (Tbexyax-Mcw-Ujq Reductase Inhibitor) Surgical History Hx of cystoscopy Hx of colonoscopy Hx of left cataract extraction Hx of right cataract extraction Social History household members: spouse Smoking Status: Current every day smoker tobacco type: cigarettes alcohol intake: never ROS Constitutional Constitutional: Denies chills or fever(s) Eyes Eyes: Denies blurry vision ENT HEENT: Denies abnormal hearing Cardiovascular Cardiovascular: Denies chest pain Respiratory/Chest Respiratory/Chest: Reports cough and shortness of breath at rest; Denies wheezing Gastrointestinal Gastrointestinal: Denies abdominal pain Genitourinary Genitourinary: Denies dysuria Musculoskeletal Musculoskeletal: Denies back pain or extremity pain Integumentary Integumentary: Denies dry skin Neurologic Neurologic: Denies abnormal gait Psychiatric Psychiatric: Denies anxiety Vital Signs Vital Signs Vital Signs: 09/12/24 02:29 09/12/24 02:37 09/12/24 02:39 Temperature 97.6 F L 97.6 F L Temperature Source Axillary Axillary Pulse Rate 118 H 111 H Respiratory Rate 30 H 28 H Respiratory Effort Short of Breath Labored Accessory Muscle Use Respiratory Pattern Blood Pressure 237/99 H 237/99 H Blood Pressure Mean 145 145 Blood Pressure Source Blood Pressure Position Blood Pressure Location Pulse Ox 98 99 Oxygen Delivery Method Non-Rebreather Non-Rebreather Oxygen Flow Rate (L/min) 25 25 Frac (more content not included)... [facility] 08-29-2024 History of Present illness Narrative Subjective He is feeling well At home BP is 140/70 consistently. No swelling Off of Lasix Patient ID: Enoc Fernandes is a 78 y.o. male who presents for Follow-up (6 month ck/Review labs). HPI He is here for follow-up secondary to chronic kidney disease. Has underlying type 1 diabetes Baseline creatinine is around 1.6-1.9. Also has systolic congestive heart failure with an ejection fraction of 35% Medications are reviewed he is on amlodipine Zetia Lasix insulin lisinopril metoprolol and Flomax His labs were repeated last on July 07 His hemoglobin A1c is 7.9 Metabolic panel shows a BUN of 28 a creatinine of 1.61 with an estimated GFR of 43 LFTs are unremarkable uric acid normal phosphorus normal Blood pressure here in the office today is 172/76 and repeated 168/72 Review of Systems Constitutional: Negative. HENT: Negative. Eyes: Negative. Respiratory: Negative. Cardiovascular: Negative. Gastrointestinal: Negative. Endocrine: Negative. Genitourinary: Negative. Musculoskeletal: Negative. Skin: Negative. Allergic/Immunologic: Negative. Neurological: Negative. Hematological: Negative. Psychiatric/Behavioral: Negative. Objective Physical Exam Constitutional: Appearance: Normal appearance. [...] Addressed This Visit ICD-10-CM Essential hypertension I10 Type 1 diabetes mellitus with diabetic neuropathy E10.40 CKD (chronic kidney disease) - Primary N18.9 Relevant Orders Follow Up In Nephrology Comprehensive metabolic panel Albumin-Creatinine Ratio, Urine Random Urinalysis with Reflex Microscopic Plan: BP is stable at home Renal function is very stable Volume status is very stable Would benefit from SGLT2 as HGBA1C is stable and not using for DM control but sees Endocrinololgy so will follow up with them. F/U in 6 months. Call with issues. Chronic kidney disease stage III appears with baseline creatinine about 1.6-1.9 Diabetes mellitus Type I Hypertension Nicotine abuse Systolic congestive heart failure with ejection fraction of 35% Global hypokinesia of the left ventricle Ayanna Albert DO 08/29/24 1:12 PM documented in this encounter [facility] Work Phone: 07-21-2024 Note Patient ID: Enoc Fernandes is a 78 y.o. male Subjective: HPI: Enoc Fernandes presents for follow-up of Type 1 diabetes The initial diagnosis of diabetes was made 28 years ago in 1994. Disease course has been stable. Mr. Fernandes is a 78 y.o. male patient who presents the office for a follow-up of his type 1 diabetes. Patient's most recent hemoglobin A1c is 7.9%. Patient reports that he does follow a diabetic diet. His weight stable from his last visit with us. Complications from his diabetes includes neuropathy. He denies nephropathy or retinopathy. Hospitalized with COVID-19 in November 2023, had difficulty breathing, ICU stay requiring High flow O2, C-pap, etc. Hospitalized in [facility] with CHF, pleural effusions and elevated troponin. Reports slow recovery from pneumonia. Pertinent negatives for diabetes include: no chest [...] Patient has been checking BG TID. Breakfast: 68-240 Lunch: - Supper: 69-263 Bedtime: 70-370 *Blood sugar records were brought with the patient to his appointment today and reviewed. Patient's weight is stable Patient is following a diabetic diet. Meal planning includes avoidance of concentrated sweets. An PASCALE inhibitor/angiotensin II receptor deepali is being taken. Patient does not see a javascript ui developer. Eye exam is current. Currently taking: No oral hypoglycemic medications Admelog insulin: 7 units at breakfast; 8 units at lunch; 8-9 units at supper Lantus insulin: 15 units at bedtime Outpatient Medications Marked as Taking for the 07/21/24 encounter (Office Visit) with Paty Ortega CNP: acetaminophen (Tylenol Arthritis Pain) 650 MG CR tablet, Take 1 (one) tablet (650 mg total) by mouth every 8 (eight) hours as needed for pain . amLODIPine (NORVASC) 10 MG tablet, Take 1 (one) tablet (10 mg total) by mouth daily . aspirin 81 MG EC tablet, Take 1 (one) tablet (81 mg total) by mouth daily . blood sugar diagnostic (Contour Next Test Strips) strips, TEST BLOOD GLUCOSE FOUR TIMES DAILY E10.65 . lisinopriL (PRINIVIL,ZESTRIL) 5 MG tablet, Take 1 (one) tablet (5 mg total) by mouth daily . metoprolol succinate (TOPROL-XL) 25 MG 24 hr tablet, Take 1 (one) tablet (25 mg total) by mouth daily . OXYGEN-AIR DELIVERY SYSTEMS MISC, Inhale 2 L/min See Admin Instructions . pen needle, diabetic (BD Ultra-Fine Jolynn Pen Needle) 32 gauge x 5/32 Ndle, Use as directed 4x daily Dx code E10.65 . tamsulosin (FLOMAX) 0.4 mg capsule, Take 1 (one) capsule (0.4 mg total) by mouth daily . (Patient taking differently: Take 1 (one) capsule (0.4 mg total) by mouth 4 (four) times a week .) Review of Systems: Review of Systems Constitutional: Positive for fatigue. Negative for appetite change and unexpected weight change. Eyes: Negative for visual disturbance. Respiratory: Negative for shortness of breath. Cardiovascular: Negative for chest pain and leg swelling. Gastrointestinal: Negative for constipation, diarrhea, nausea and vomiting. Endocrine: Negative for polydipsia, polyphagia and polyuria. Genitourinary: Negative for frequency. Musculoskeletal: Positive for back pain. Hip pain Skin: Negative for wound. Neurological: Positive for weakness and numbness. Negative for headaches. Psychiatric/Behavioral: Negative for sleep disturbance. The following portions of the patient's history were reviewed and updated as appropriate: allergies, current medications, past family history, past medical history, past social history, past surgical history and problem list. Objective: BP (!) 176/69 Pulse 69 Wt 67 kg (147 lb 9.6 oz) BMI 22.44 kg/m Wt Readings from Last 3 Encounters: 07/21/24 67 kg (147 lb 9.6 oz) 04/24/24 66.9 kg (147 lb 8 oz) 02/18/24 68.9 kg (152 lb) Physical Exam: Physical Exam Vitals reviewed. Constitutional: Appearance: He is well-developed. HENT: Head: Normocephalic. Eyes: General: No scleral icterus. Conjunctiva/sclera: Conjunctivae normal. Cardiovascular: Rate and Rhythm: Normal rate and regular rhythm. Heart sounds: Normal heart sounds. Pulmonary: Effort: Pulmonary effort is normal. Breath sounds: Normal breath sounds. Skin: General: Skin is warm and dry. Findings: No erythema. Neurological: Mental Status: He (more content not included)... [facility] 07-21-2024 History of Present illness Narrative Images from the original note were not included. Patient ID: Enoc Fernandes is a 78 y.o. male Subjective: HPI: Enoc Fernandes presents for follow-up of Type 1 diabetes The initial diagnosis of diabetes was made 28 years ago in 1994. Disease course has been stable. Mr. Fernandes is a 78 y.o. male patient who presents the office for a follow-up of his type 1 diabetes. Patient's most recent hemoglobin A1c is 7.9%. Patient reports that he does follow a diabetic diet. His weight stable from his last visit with us. Complications from his diabetes includes neuropathy. He denies nephropathy or retinopathy. Hospitalized with COVID-19 in November 2023, had difficulty breathing, ICU stay requiring High flow O2, C-pap, etc. Hospitalized in [facility] with CHF, pleural effusions and elevated troponin. Reports slow recovery from pneumonia. Pertinent negatives for diabetes include: no chest [...] Patient has been checking BG TID. Breakfast: 68-240 Lunch: - Supper: 69-263 Bedtime: 70-370 *Blood sugar records were brought with the patient to his appointment today and reviewed. Patient's weight is stable Patient is following a diabetic diet. Meal planning includes avoidance of concentrated sweets. An PASCALE inhibitor/angiotensin II receptor deepali is being taken. Patient does not see a javascript ui developer. Eye exam is current. Currently taking: No oral hypoglycemic medications Admelog insulin: 7 units at breakfast; 8 units at lunch; 8-9 units at supper Lantus insulin: 15 units at bedtime Outpatient Medications Marked as Taking for the 07/21/24 encounter (Office Visit) with Paty Ortega CNP: acetaminophen (Tylenol Arthritis Pain) 650 MG CR tablet, Take 1 (one) tablet (650 mg total) by mouth every 8 (eight) hours as needed for pain . amLODIPine (NORVASC) 10 MG tablet, Take 1 (one) tablet (10 mg total) by mouth daily . aspirin 81 MG EC tablet, Take 1 (one) tablet (81 mg total) by mouth daily . blood sugar diagnostic (Contour Next Test Strips) strips, TEST BLOOD GLUCOSE FOUR TIMES DAILY E10.65 . lisinopriL (PRINIVIL,ZESTRIL) 5 MG tablet, Take 1 (one) tablet (5 mg total) by mouth daily . metoprolol succinate (TOPROL-XL) 25 MG 24 hr tablet, Take 1 (one) tablet (25 mg total) by mouth daily . OXYGEN-AIR DELIVERY SYSTEMS [facility], Inhale 2 L/min See Admin Instructions . pen needle, diabetic (BD Ultra-Fine Jolynn Pen Needle) 32 gauge x 5/32 Ndle, Use as directed 4x daily Dx code E10.65 . tamsulosin (FLOMAX) 0.4 mg capsule, Take 1 (one) capsule (0.4 mg total) by mouth daily . (Patient taking differently: Take 1 (one) capsule (0.4 mg total) by mouth 4 (four) times a week .) Review of Systems: Review of Systems Constitutional: Positive for fatigue. Negative for appetite change and unexpected weight change. Eyes: Negative for visual disturbance. Respiratory: Negative for shortness of breath. Cardiovascular: Negative for chest pain and leg swelling. Gastrointestinal: Negative for constipation, diarrhea, nausea and vomiting. Endocrine: Negative for polydipsia, polyphagia and polyuria. Genitourinary: Negative for frequency. Musculoskeletal: Positive for back pain. Hip pain Skin: Negative for wound. Neurological: Positive for weakness and numbness. Negative for headaches. Psychiatric/Behavioral: Negative for sleep disturbance. The following portions of the patient's history were reviewed and updated as appropriate: allergies, current medications, past family history, past medical history, past social history, past surgical history and problem list. Objective: BP (!) 176/69 Pulse 69 Wt 67 kg (147 lb 9.6 oz) BMI 22.44 kg/m Wt Readings from Last 3 Encounters: 07/21/24 67 kg (147 lb 9.6 oz) 04/24/24 66.9 kg (147 lb 8 oz) 02/18/24 68.9 kg (152 lb) Physical Exam: Physical Exam Vitals reviewed. Constitutional: [...] to person, place, and time. Lab Review 07/07/24: *labs reviewed 07/21/24 Hgb A1c: 7.9% Creat: 1.61; eGFR: 43 AST: 13; ALT: 8 K: 4.0 CBC: WBC:7.9; Hgb: 13.6; Hct: 43.5; Plt: 260 TSH: 0.85 ; FreeT4: 1.01 02/07/24 Creat: 1.92; eGFR: 35 11/27/23 Hgb A1c: 7.5% TSH: 0.35 Tchol: 130; Tri; HDL: 56; LDL: 61 09/27/2023 Hemoglobin A1c 7.4% Sodium 143, potassium [...] diabetes mellitus with diabetic neuropathy (HCC) 2. Pure hypercholesterolemia 3. Essential hypertension Type 1 diabetes, under good control Enoc Fernandes presents for follow-up of Type 1 diabetes Patient is currently managed with: Humalog insulin: 8-10 units at breakfast; 8-10 units at lunch; 8-10 units at supper; Lantus insulin: 14-15 units at bedtime . Most recent Hgb A1c is 7.9%. Reports occasional lows in the early AM and during the day. States if he is low in early AM, he often has visual blurring and his assists him with juice or other carb source. Typically eats a snack if BG <150 at HS. 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 Had bilat cataract extraction Dr. Lopez. Sees Dr. Browne in [place] every year routinely.Has blurred vision with low BG Nephropathy: Positive Creat: 1.92; eGFR: 35 02/07/24. Mialb/creat ratio:195 on 02/21, patient takes lisinopril. Follows with Dr. Albert at . Peripheral Neuropathy: Positive Reports bilateral numbness and [...] separate hydrochlorothiazide 12.5 mg tablet. BP: (!) 176/69; Cardiac: Negative Denies Chest pain or SOB [...] lesions at this time. Last foot exam: 07/21/24 Thyroid: Negative 09/27/23 TSH 0.88, FT4--0.87 Other: PSA: PSA: 3.14 02/21 15.89 06/08/22 (ref range 0-4.0) 6.16 07/04/19 (<6.60 is WNL) 4.58 on 02/18/18 4.66 02/05/17; (2.82 12/27/15; 04/01/15: 3.18; 04/03/14: 2.78; 03/11: 1.59) He reports he has been started on Flomax; PSA elevated on labs .06.22. He was referred to Dr. Melendez in June 2022. He reports their office called, but he decided not to mess with that right now. Recheck PSA 3.14 Squamous cell Ca removed [...] 2022. Plan: 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) [E10.40] 1. Rx changes: See insulin dose adjustments below Admelog insulin: 8-10 units at breakfast; 8-10 units at lunch; 8-10 units at supper Lantus insulin: 14-15 units at bedtime 2. Education: Reviewed ABCs of diabetes management (respective goals in parentheses): A1C (7.0-8.0), blood pressure (<130/80), and cholesterol (LDL <100). 3. Compliance at present is estimated to be good. Efforts to improve compliance (if necessary) will be directed at dietary modifications: Limit portion sizes, increased exercise and regular blood sugar monitorin times daily. 4. Follow up: 4-5 months 5. Record blood sugar readings as instructed. Call if BG consistently <70 or >250. [phone] Continue to check blood sugar 3 times [...] types were placed in this encounter. Electronically Signed by: Paty Ortega CNP 07/21/24 1:21 PM documented in this encounter [facility] 04-24-2024 Instructions Luisa Easley RN - 04/24/2024 10:08 AM EDT How to Contact your Care Team: Provider: Dr. Woo Grigsby MD Clinic Nurse: Luisa Easley RN Clinic MA: Ej Guidry MA REFILLS: When in need for refills please call your care team or the office at [phone]. Please include medication name, pharmacy name, and specify 30-day or 90-day supply. Please check with your pharmacy within 24 hours of request for your refill. You must follow up as directed to continue current refills. Thank you! documented in this encounter [facility] 04-24-2024 History of Present illness Narrative General Cardiology New Patient Clinic Consult [facility] Heart [facility] Vascular 04/24/2024 Woo Grigsby MD [address] [place] [address] [id number] Patient: Enoc Fernandes Date of : 1945 (78 y.o.) PCP: Ryley Jeter MD Date of Service: 04/24/2024 Chief Complaint: Follow-up (6 mo/ No cardiac symptoms ) Assessment and Plan: 1. 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 Continues to remain asymptomatic, continue to monitor 2. Dyslipidemia Tolerating Zetia with LDL now in the 60s It has been a pleasure caring for this patient. Please don't hesitate to reach out to my office directly with any questions or concerns. Follow-up: Return in about 1 year (around 04/24/2025). Woo Grigsby MD, [facility] Non-Invasive Cardiology [facility] P:[phone] F:[phone] History of Present Illness: Enoc Fernandes is a 78 y.o. man with a past medical history of insulin-dependent diabetes for 30 years, history of tobacco use, recent COVID infection with systolic dysfunction ejection fraction ranging from 35 to 45% who presented initially to community health care. He underwent stress testing which showed no definite ischemia as well as resolution of ejection fraction to 55%. He presents today with his feeling well. Blood pressures at home are in the 130s reportedly however has not had his blood pressure cuff confirmed for accuracy. He denies any orthopnea or paroxysmal nocturnal dyspnea continues to feel well. Objective Review of Systems: All systems were [...] History Tobacco Use Smoking Status Every Day Current packs/day: 0.50 Average packs/day: 0.5 packs/day for 51.0 years (25.5 ttl pk-yrs) Types: Cigarettes Smokeless Tobacco Never Allergies: Prednisone and Zutgqqy-ctw-uag reductase inhibitors All of the information has [...] sugar diagnostic (Contour Next Test Strips) strips, TEST BLOOD GLUCOSE FOUR TIMES DAILY E10.65 ., Disp: 150 strip, Rfl: 11 ezetimibe (Zetia) 10 mg tablet, Take 1 (one) tablet (10 mg total) by mouth daily ., Disp: 30 tablet, Rfl: 11 insulin glargine (Lantus Solostar U-100 Insulin) 100 unit/mL (3 mL) InPn, Inject 14 (fourteen) Units under the skin nightly ., Disp: 15 mL, Rfl: 11 insulin lispro 100 unit/mL InPn, Use as directed 8 units before breakfast, 9 units before lunch, 8 units before dinner . (Patient taking differently: Use as directed 8 units before breakfast, 9 units before lunch, 8 units before dinner NOW IS ADMELOG PER INSURANCE .), Disp: 15 mL, Rfl: 11 lisinopriL (PRINIVIL,ZESTRIL) 5 MG tablet, Take 1 (one) tablet (5 mg total) by mouth daily ., Disp: , Rfl: metoprolol succinate (TOPROL-XL) 25 MG 24 hr tablet, Take 1 (one) tablet (25 mg total) by mouth daily ., Disp: 90 tablet, Rfl: 3 OXYGEN-AIR DELIVERY SYSTEMS MIS, Inhale 2 L/min See Admin Instructions ., Disp: , Rfl: pen needle, diabetic (BD Ultra-Fine Jolynn Pen Needle) 32 gauge x 5/32 Ndle, Use as directed 4x daily Dx code E10.65 ., Disp: 400 each, Rfl: 4 tamsulosin (FLOMAX) 0.4 mg capsule, Take 1 (one) capsule (0.4 mg total) by mouth daily . (Patient taking differently: Take 1 (one) capsule (0.4 mg total) by mouth 4 (four) times a week .), Disp: 30 capsule, Rfl: 3 furosemide (LASIX) 20 MG tablet, Take 1 (one) tablet (20 mg total) by mouth 2 (two) times a day as needed ., Disp: 180 tablet, Rfl: 3 Physical Exam: BP (!) 150/70 (BP Location: Right arm, Patient Position: Sitting, BP Cuff Size: Adult) Comment: Manual Pulse (!) 53 Ht 5' 8 Wt 66.9 kg (147 lb 8 oz) SpO2 96% BMI 22.43 kg/m Constitutional: Well appearing elderly male,, no [...] mood and affect, appropriate conversation Cardiovascular Studies: Nov 2023/December 2023 Summary 1. Left ventricular chamber dimension is normal. 2. Left ventricular systolic function is normal with an ejection fraction by Biplane Method of Discs of 63 %. 3. The left ventricular diastolic function is grade I diastolic dysfunction, consistent with low or normal atrial pressures. Summary 1. Abnormal pharmacologic nuclear SPECT myocardial perfusion study. 2. No diagnostic ECG changes with regadenoson. 3. There is decreased radiotracer uptake within the basal-mid inferoseptal and distal anterior fuentes on stress imaging which is not present on rest imaging. This is suggestive of ischemia, but is not in a typical coronary distribution and may be in part due to a conduction abnormality. 4. Gated imaging demonstrates normal left ventricular size with septal hypokinesis and mild left ventricular systolic dysfunction, post-stress LVEF 50%, rest LVEF 51%. [facility]ogram reviewed from [facility] [...] underestimated. Labs: Lab Results Component Value Date GLUCOSE 82 12/01/2023 CALCIUM 8.9 12/01/2023 NA 142 12/01/2023 K 3.4 (L) 12/01/2023 CL 105 12/01/2023 BUN 26 (H) 12/01/2023 CREATININE 1.76 (H) 12/01/2023 Lab Results Component Value Date ALT 47 11/27/2023 AST 74 (H) 11/27/2023 ALKPHOS 97 11/27/2023 BILITOT 0.7 11/27/2023 Lab Results Component Value Date WBC 8.22 12/01/2023 HGB 12.0 (L) 12/01/2023 HCT 36.6 (L) 12/01/2023 MCV 92.9 12/01/2023 EXTMCV 91 06/08/2022 PLT 115 (L) 12/01/2023 RBC 3.94 (L) 12/01/2023 Lab Results Component Value Date CHOL 130 11/27/2023 LDLCALC 61 11/27/2023 TRIG 67 11/27/2023 HDL 56 11/27/2023 Lab Results Component Value Date HGBA1C 7.7 (H) 11/27/2023 Lab Results Component Value Date ALT 47 11/27/2023 AST 74 (H) 11/27/2023 ALKPHOS 97 11/27/2023 BILITOT 0.7 11/27/2023 The ASCVD Risk score (Dasha DK, et al., 2019) failed to calculate for the following reasons: The 2019 ASCVD risk score is only valid for ages 40 to 79 The patient has a prior [place] or stroke diagnosis documented in this encounter [facility] 04-24-2024 Note General Cardiology N ew Patient Clinic Consult [facility] 04/24/2024 Woo Grigsby MD [address] [place] [address] [place] [phone] Patient: Enoc Fernandes Date of : 1945 (78 y.o.) PCP: Ryley Jeter MD Date of Service: 04/24/2024 Chief Complaint: Follow-up (6 mo/ No cardiac symptoms ) Assessment and Plan: 1. 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 Continues to remain asymptomatic, continue to monitor 2. Dyslipidemia Tolerating Zetia with LDL now in the 60s It has been a pleasure caring for this patient. Please don't hesitate to reach out to my office directly with any questions or concerns. Follow-up: Return in about 1 year (around 04/24/2025). Woo Grigsby MD, [facility] Non-Invasive Cardiology [facility] P:[phone] F:[phone] ---- History of Present Illness: Enoc Fernandes is a 78 y.o. man with a past medical history of insulin-dependent diabetes for 30 years, history of tobacco use, recent COVID infection with systolic dysfunction ejection fraction ranging from 35 to 45% who presented initially to community health care. He underwent stress testing which showed no definite ischemia as well as resolution of ejection fraction to 55%. He presents today with his feeling well. Blood pressures at home are in the 130s reportedly however has not had his blood pressure cuff confirmed for accuracy. He denies any orthopnea or paroxysmal nocturnal dyspnea continues to feel well. Objective Review of Systems: All systems were [...] History Tobacco Use Smoking Status Every Day Current packs/day: 0.50 Average packs/day: 0.5 packs/day for 51.0 years (25.5 ttl pk-yrs) Types: Cigarettes Smokeless Tobacco Never Allergies: Prednisone and Wnuykpn-vgm-wqi reductase inhibitors All of the information has [...] sugar diagnostic (Contour Next Test Strips) strips, TEST BLOOD GLUCOSE FOUR TIMES DAILY E10.65 ., Disp: 150 strip, Rfl: 11 ezetimibe (Zetia) 10 mg tablet, Take 1 (one) tablet (10 mg total) by mouth daily ., Disp: 30 tablet, Rfl: 11 insulin glargine (Lantus Solostar U-100 Insulin) 100 unit/mL (3 mL) InPn, Inject 14 (fourteen) Units under the skin nightly ., Disp: 15 mL, Rfl: 11 insulin lispro 100 unit/mL InPn, Use as directed 8 units before breakfast, 9 units before lunch, 8 units before dinner . (Patient taking differently: Use as directed 8 units before breakfast, 9 units before lunch, 8 units before dinner NOW IS ADMELOG PER INSURANCE .), Disp: 15 mL, Rfl: 11 lisinopriL (PRINIVIL,ZESTRIL) 5 MG tablet, Take 1 (one) tablet (5 mg total) by mouth daily ., Disp: , Rfl: metoprolol succinate (TOPROL-XL) 25 MG 24 hr tablet, Take 1 (one) tablet (25 mg total) by mouth daily ., Disp: 90 tablet, Rfl: 3 OXYGEN-AIR DELIVERY SYSTEMS MISC, Inhale 2 L/min See Admin Instructions ., Disp: , Rfl: pen needle, diabetic (BD Ultra-Fine Jolynn Pen Needle) 32 gauge x 5/32 Ndle, Use as directed 4x daily Dx code E10.65 ., Disp: 400 each, Rfl: 4 tamsulosin (FLOMAX) 0.4 mg capsule, Take 1 (one) capsule (0.4 mg total) by mouth daily . (Patient taking differently: T (more content not included)... [facility] 03-28-2024 Telephone encounter Note Pt was last seen on 01/14/24 by Aylin Lacy CNP. Refills appropriate. Routing to Dr. Garay as Dr. Grigsby is out of the office. [facility] 03-28-2024 Miscellaneous Notes Pt was last seen on 01/14/24 by Aylin Lacy CNP. Refills appropriate. Routing to Dr. Garay as Dr. Grigsby is out of the office. documented in this encounter [facility] 02-24-2024 Evaluation + Plan note Associated Problem(s): CKD (chronic kidney disease) Creatinine is stable at 1.92 and stable, stage IIIb, blood pressure is well controlled, diabetes well controlled, not using NSAIDs. [facility] Work Phone: 02-24-2024 Miscellaneous Notes Associated Problem(s): CKD (chronic kidney disease) Creatinine is stable at 1.92 and stable, stage IIIb, blood pressure is well controlled, diabetes well controlled, not using NSAIDs. Associated Problem(s): Type 1 diabetes mellitus with diabetic neuropathy (Multi) Follows with endocrinology, is not to use SGLT2 due to Type I diabetes Associated Problem(s): Essential hypertension BP is well controlled on lisinopril and metoprolol, no changes documented in this encounter [facility] Work Phone: 02-24-2024 Evaluation + Plan note Associated Problem(s): Type 1 diabetes mellitus with diabetic neuropathy (Multi) Follows with endocrinology, is not to use SGLT2 due to Type I diabetes [facility] Work Phone: 02-24-2024 Evaluation + Plan note Associated Problem(s): Essential hypertension BP is well controlled on lisinopril and metoprolol, no changes [facility] Work Phone: 02-24-2024 History of Present illness Narrative Subjective Patient ID: Enoc Fernandes is a 78 y.o. male who presents for Follow-up (6 month ck/Review labs 02/06). Patient being seen in follow-up for chronic kidney disease stage III with recent admission to the hospital in October with COVID 19 pneumonia and an acute kidney injury Labs reviewed Glucose 81 Sodium 141, potassium 4.5, chloride 105, bicarb 29 Renal function with a BUN of 29 and creatinine of 1.92, GFR is 35 Albumin creatinine ratio 221.6 He is doing well He has recovered well from his 2 hospital stays His blood sugars are well-controlled His blood pressure is well-controlled He denies any difficulties voiding He has no swelling He was started on Lasix while hospitalized secondary to fluid volume overload, and symptoms of heart failure Review of Systems Constitutional: Negative. Respiratory: Negative. Cardiovascular: Negative. Gastrointestinal: Negative. Endocrine: Negative. Genitourinary: Negative. Musculoskeletal: Negative. Skin: Negative. Neurological: Negative. Psychiatric/Behavioral: Negative. Objective Physical Exam Vitals reviewed. Constitutional: Appearance: Normal appearance. HENT: Head: Normocephalic. Cardiovascular: Rate and Rhythm: Normal rate and regular rhythm. Pulmonary: Effort: Pulmonary effort is normal. Breath sounds: Normal breath sounds. Abdominal: Palpations: Abdomen is soft. Musculoskeletal: General: Normal range of motion. Comments: Walks with a cane Skin: General: Skin is warm and dry. Neurological: Mental Status: He is alert and oriented to person, place, and time. Psychiatric: Mood and Affect: Mood normal. Behavior: Behavior normal. Assessment/Plan Problem List Items Addressed This Visit ICD-10-CM Type 1 diabetes mellitus with diabetic neuropathy (Multi) E10.40 Follows with endocrinology, is not to use SGLT2 due to Type I diabetes CKD (chronic kidney disease) - Primary N18.9 Creatinine is stable at 1.92 and stable, stage IIIb, blood pressure is well controlled, diabetes well controlled, not using NSAIDs. Relevant Orders Basic metabolic panel Uric acid Phosphorus Albumin , Urine Random Follow Up In Nephrology Other Visit Diagnoses Codes Acute on chronic systolic (congestive) heart failure (Multi) I50.23 Relevant Medications furosemide (Lasix) 20 mg tablet lisinopril 5 mg tablet Acute hypoxemic respiratory failure: Clinically improving COVID-19 pneumonia Bilateral infiltrates Chronic kidney disease stage III appears with baseline creatinine about 1.6-1.9 Acute renal failure secondary to acute illness and also likely secondary to medications Diabetes mellitus with hyperglycemia Shortness of breath Hypertension Nicotine abuse Systolic congestive heart failure with ejection fraction of 35% Global hypokinesia of the left ventricle Madie AlbertCULLEN DNP 02/24/24 1:50 PM documented in this encounter [facility] Work Phone: 02-18-2024 History of Present illness Narrative Images from the original note were not included. Patient ID: Enoc Fernandes is a 78 y.o. male Subjective: HPI: Enoc Fernandes presents for follow-up of Type 1 diabetes The initial diagnosis of diabetes was made 28 years ago in 1994. Disease course has been stable. Mr. Fernandes is a 78 y.o. male patient who presents the office for a follow-up of his type 1 diabetes. Patient's most recent hemoglobin A1c is 7.5%. Patient reports that he does follow a diabetic diet. His weight stable from his last visit with us. Complications from his diabetes includes neuropathy. He denies nephropathy or retinopathy. Hospitalized with COVMA-19 in November 2023, had difficulty breathing, ICU stay requiring High flow O2, C-pap, etc. Hospitalized in [facility] with CHF, pleural effusions and elevated troponin. Pertinent negatives for diabetes include: no chest [...] Patient has been checking BG TID. Breakfast: 68-240 Lunch: - Supper: 69-263 Bedtime: 70-370 *Blood sugar records were brought with the patient to his appointment today and reviewed. Patient's weight is stable Patient is following a diabetic diet. Meal planning includes avoidance of concentrated sweets. An PASCALE inhibitor/angiotensin II receptor deepali is being taken. Patient does not see a javascript ui developer. Eye exam is current. Currently taking: No oral hypoglycemic medications Admelog insulin: 7 units at breakfast; 8 units at lunch; 8-9 units at supper Lantus insulin: 15 units at bedtime Outpatient Medications Marked as Taking for the 02/18/24 encounter (Office Visit) with Paty Ortega CNP: acetaminophen (Tylenol Arthritis Pain) 650 MG CR tablet, Take 1 (one) tablet (650 mg total) by mouth every 8 (eight) hours as needed for pain . amLODIPine (NORVASC) 10 MG tablet, Take 1 (one) tablet (10 mg total) by mouth daily . aspirin 81 MG EC tablet, Take 1 (one) tablet (81 mg total) by mouth daily . blood sugar diagnostic (Contour Next Test Strips) strips, Use as directed 4 times per day. Dx E10.9 Patient with type 1 DM on insulin with hypoglycemia. Needs to check BG QID; takes insulin QID . ezetimibe (Zetia) 10 mg tablet, Take 1 (one) tablet (10 mg total) by mouth daily . furosemide (LASIX) 20 MG tablet, Take 1 (one) tablet (20 mg total) by mouth 2 (two) times a day . insulin glargine (Lantus Solostar U-100 Insulin) 100 unit/mL (3 mL) InPn, Inject 14 (fourteen) Units under the skin nightly . insulin lispro 100 unit/mL InPn, Use as directed 8 units before breakfast, 9 units before lunch, 8 units before dinner . (Patient taking differently: Use as directed 8 units before breakfast, 9 units before lunch, 8 units before dinner NOW IS ADMELOG PER INSURANCE .) lisinopriL (PRINIVIL,ZESTRIL) 5 MG tablet, Take 1 (one) tablet (5 mg total) by mouth daily . metoprolol succinate (TOPROL-XL) 25 MG 24 hr tablet, Take 1 (one) tablet (25 mg total) by mouth daily . OXYGEN-AIR DELIVERY SYSTEMS MISC, Inhale 2 L/min See Admin Instructions . pen needle, diabetic (BD Ultra-Fine Jolynn Pen Needle) 32 gauge x 5/32 Ndle, Use as directed 4x daily Dx code E10.65 . tamsulosin (FLOMAX) 0.4 mg capsule, Take 1 (one) capsule (0.4 mg total) by mouth daily . Review of Systems: Review of Systems Constitutional: Positive for fatigue. Negative for appetite change and unexpected weight change. Eyes: Negative for visual disturbance. Respiratory: Negative for shortness of breath. Cardiovascular: Negative for chest pain and leg swelling. Gastrointestinal: Negative for constipation, diarrhea, nausea and vomiting. Endocrine: Negative for polydipsia, polyphagia and polyuria. Genitourinary: Negative for frequency. Musculoskeletal: Positive for back pain. Hip pain Skin: Negative for wound. Neurological: Positive for weakness and numbness. Negative for headaches. Psychiatric/Behavioral: Negative for sleep disturbance. The following portions of the patient's history were reviewed and updated as appropriate: allergies, current medications, past family history, past medical history, past social history, past surgical history and problem list. Objective: BP 131/79 Pulse 67 Wt 68.9 kg (152 lb) BMI 23.11 kg/m Wt Readings from Last 3 Encounters: 02/18/24 68.9 kg (152 lb) 01/14/24 71.6 kg (157 lb 14.4 oz) 01/12/24 67.1 kg (148 lb) Physical Exam: Physical Exam Vitals reviewed. Constitutional: [...] to person, place, and time. Lab Review 02/07/24 Creat: 1.92; eGFR: 35 11/27/23 Hgb A1c: 7.5% TSH: 0.35 Tchol: 130; Tri; HDL: 56; LDL: 61 09/27/2023 Hemoglobin A1c 7.4% Sodium 143, potassium [...] diabetes mellitus with diabetic neuropathy (HCC) 2. Pure hypercholesterolemia 3. Essential hypertension Type 1 diabetes, under good control Enoc Fernandes presents for follow-up of Type 1 diabetes Patient is currently managed with: Humalog insulin: 8-10 units at breakfast; 8-10 units at lunch; 8-10 units at supper; Lantus insulin: 15 units at bedtime . Most recent Hgb A1c is 7.5%. Reports occasional lows in the early AM and during the day. States if he is low in early AM, he often has visual blurring and his assists him with juice or other carb source. Typically eats a snack if BG <150 at HS. 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 Had bilat cataract extraction Dr. Lopez. Sees Dr. Browne in [place] every year routinely.Has blurred vision with low BG Nephropathy: Positive Creat: 1.92; eGFR: 35 02/07/24. Mialb/creat ratio:195 on 02/21, patient takes lisinopril. Follows with Dr. Albert at . Peripheral Neuropathy: Positive Reports bilateral numbness and [...] a separate hydrochlorothiazide 12.5 mg tablet. BP: 131/79; Cardiac: Negative Denies Chest pain or SOB [...] lesions at this time. Last foot exam: 02/18/24 Thyroid: Negative 09/27/23 TSH 0.88, FT4--0.87 Other: [...] decided not to mess with that right now. Recheck PSA 3.14 Squamous cell Ca removed [...] 2022. Plan: 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) [E10.40] 1. Rx changes: See insulin dose adjustments below Admelog insulin: 8-10 units at breakfast; 8-10 units at lunch; 8-10 units at supper Lantus insulin: 12-15 units at bedtime Discussed changing admelog to Fiasp which appears to be covered on his plan. He reports humalog previously worked better with more rapid onset. He would like to maintain admelog and consider fiasp in the future. 2. Education: Reviewed ABCs of diabetes management (respective goals in parentheses): A1C (7.0-8.0), blood pressure (<130/80), and cholesterol (LDL <100). 3. Compliance at present is estimated to be good. Efforts to improve compliance (if necessary) will be directed at dietary modifications: Limit portion sizes, increased exercise and regular blood sugar monitorin times daily. 4. Follow up: 4-5 months 5. Record blood sugar readings as instructed. Call if BG consistently <70 or >250. [phone] Continue to check blood sugar 3 times [...] types were placed in this encounter. Electronically Signed by: Paty Ortega CNP 02/18/24 1:21 PM documented in this encounter [facility] 01-14-2024 Instructions Robert Dominguez RN - 01/14/2024 11:46 AM EDT How to Contact your Care Team: Provider: Dr. Woo Grigsby MD Clinic Nurse: Luisa Easley RN REFILLS: When in need for refills please call your care team or the office at [phone]. Please include medication name, pharmacy name, and specify 30-day or 90-day supply. Please check with your pharmacy within 24 hours of request for your refill. You must follow up as directed to continue current refills. Thank you! documented in this encounter [facility] 01-14-2024 History of Present illness Narrative General Cardiology Returning Patient Clinic Visit [facility] Heart [facility] Vascular 01/14/2024 Aylin Lacy, LAUNCH OPERATOR [address] [facility] Medical Office [facility] [id number] Patient: Enoc Fernandes Date of : 1945 (78 y.o.) Stem Lead Former: Dr. Grigsby PCP: Ryley Jeter MD Chief Complaint: Transitional care appointment Date of Service: 01/14/2024 Assessment and Plan: Systolic dysfunction with recovery of ejection fraction -Euvolemic on exam -Continue lisinopril 5 mg daily -Continue metoprolol succinate 25 mg daily -Continue Lasix 20 mg twice daily -He is following with nephrology in [place]. He has an upcoming appointment and labs to be drawn. Creatinine slowly improving. We discussed getting labs today but patient deferred and states he will wait until his appointment with nephrology -Dr. Grigsby elected not to start an SGLT2 inhibitor or an MRA as patient was not hydrating well, had a poor appetite, she was afraid of hypotension and dehydration with adding these agents at his last office visit -NM myocardial perfusion SPECT was ordered to rule out ischemia as the cause of his LV dysfunction. SPECT reviewed with Dr. Grigsby, would recommend cath. We talked today in great detail regarding a cardiac catheterization procedure and Dr. Grigsby's recommendations. Patient denies any complaints of chest pain or discomfort. He denies any change in functional capacity. And at this time he is electing to hold off on pursuing an invasive ischemic evaluation. Dyslipidemia Target LDL<70 mg/dL, LDL at goal Intolerant to statin therapy Continue Zetia 10 mg daily Hypertension Blood pressure at the office today 139/78 Continue amlodipine 10 mg daily Continue lisinopril 5 mg daily Continue metoprolol succinate 25 mg daily Tobacco abuse Patient reports cutting down to half a pack a day. At this time he is not interested in smoking cessation It has been a pleasure caring for this patient. Please don't hesitate to reach out to my office directly with any questions or concerns. Follow-up: Return for Next scheduled follow up. Aylin Lacy, MSN, CIGAR HEAD PUNCHER, DOCUMENTATION NURSE-C, HEALTH BENEFITS SPECIALIST, ECG-BC General Cardiology [facility] History of Present Illness: Enoc Fernandes is a 78 y.o. man with a past medical history of hypertension, hyperlipidemia, insulin-dependent diabetes mellitus, CKD, smoker, emphysema, chronic hypoxemia and systolic dysfunction. He presents today for transitional care appointment. He was last seen in our office on 10/21/2023 by his primary chief of pediatric urology Dr. Grigsby. Recent COVID infection at the end of last year and patient was noted to have systolic dysfunction with a ejection fraction ranging from 35 to 45%. He had left ventricular recovery noted on most recent echocardiogram from 11/30/2023, LVEF 63%. He presented to the [facility] on 11/27/2023 with complaints of respiratory distress. He was septic with pneumonia. Cardiology was consulted due to elevation in troponin levels. He was treated medically for his NSTEMI, plan was for follow-up in our office for NM stress test. He reported no symptoms to suggest ischemic heart disease during his admission. He completed a nuclear medicine myocardial perfusion SPECT at our office which was abnormal. Results of his stress test reviewed with patient and today. Today he presented to the office with his . He denies any complaints of exertional chest pain or discomfort. He denies shortness of breath, lower extremity edema, orthopnea or PND. He states he is slowly regaining his energy but feels as if it has been a very slow process. 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 He denies complaints of palpitations, lightheadedness, presyncope or syncope. He denies signs of bleeding. Objective Review of Systems: All systems were reviewed and noted to be negative unless otherwise stated [...] 25.50 Types: Cigarettes Smokeless Tobacco Never Allergies: Mrojvnx-msy-npf reductase inhibitors All of the above information has been reviewed at today's visit [...] QID ., Disp: 150 each, Rfl: 11 ezetimibe (Zetia) 10 mg tablet, Take 1 (one) tablet (10 mg total) by mouth daily ., Disp: 30 tablet, Rfl: 11 furosemide (LASIX) 20 MG tablet, Take 1 (one) tablet (20 mg total) by mouth 2 (two) times a day ., Disp: 180 tablet, Rfl: 0 insulin glargine (Lantus Solostar U-100 Insulin) 100 unit/mL (3 mL) InPn, Inject 14 (fourteen) Units under the skin nightly ., Disp: 15 mL, Rfl: 11 insulin lispro 100 unit/mL InPn, Use as directed 8 units before breakfast, 9 units before lunch, 8 units before dinner ., Disp: 15 mL, Rfl: 11 OXYGEN-AIR DELIVERY SYSTEMS [facility], Inhale 2 L/min See Admin Instructions ., Disp: , Rfl: pen needle, diabetic (BD Ultra-Fine Jolynn Pen Needle) 32 gauge x 5/32 Ndle, Use as directed 4x daily Dx code E10.65 ., Disp: 400 each, Rfl: 4 tamsulosin (FLOMAX) 0.4 mg capsule, Take 1 (one) capsule (0.4 mg total) by mouth daily ., Disp: 30 capsule, Rfl: 3 aspirin 81 MG EC tablet, Take 1 (one) tablet (81 mg total) by mouth daily ., Disp: , Rfl: lisinopriL (PRINIVIL,ZESTRIL) 5 MG tablet, Take 1 (one) tablet (5 mg total) by mouth daily ., Disp: , Rfl: metoprolol succinate (TOPROL-XL) 25 MG 24 hr tablet, Take 1 (one) tablet (25 mg total) by mouth daily ., Disp: , Rfl: Physical Exam: BP 139/78 (BP Location: Left arm, Patient Position: Sitting) Pulse 70 Ht 5' 8 Wt 71.6 kg (157 lb 14.4 oz) SpO2 94% BMI 24.01 kg/m Constitutional: Well appearing male, no acute distress Head: Normocephalic and atraumatic. Eyes: Conjunctivae are normal, no scleral icterus, no corneal arcus Cardiovascular: Regular rate and rhythm, no murmurs appreciated on today's exam, normal S1 and S2, no rubs or gallops, PMI is midline. No JVD noted. No peripheral edema. Lungs: Clear to auscultation, no rales, wheezes or rhonchi Pulses: +2 dorsalis pedis pulses bilaterally Musculoskeletal: Normal range of motion. Neurological: AOx3, moving all extremities normally Skin: Skin is warm and dry, normal hair pattern Psychiatric: Normal mood and affect, appropriate conversation Cardiovascular Studies: Echocardiogram 11/30/2023 Summary 1. Left ventricular chamber dimension is normal. 2. Left ventricular systolic function is normal with an ejection fraction by Biplane Method of Discs of 63 %. 3. The left ventricular diastolic function is grade I diastolic dysfunction, consistent with low or normal atrial pressures. NM stress 10/21/2023 Summary 1. Abnormal pharmacologic nuclear SPECT myocardial perfusion study. 2. No diagnostic ECG changes with regadenoson. 3. There is decreased radiotracer uptake within the basal-mid inferoseptal and distal anterior fuentes on stress imaging which is not present on rest imaging. This is suggestive of ischemia, but is not in a typical coronary distribution and may be in part due to a conduction abnormality. 4. Gated imaging demonstrates normal left ventricular size with septal hypokinesis and mild left ventricular systolic dysfunction, post-stress LVEF 50%, rest LVEF 51%. Labs: Lab Results Component Value Date GLUCOSE 82 12/01/2023 CALCIUM 8.9 12/01/2023 NA 142 12/01/2023 K 3.4 (L) 12/01/2023 CL 105 12/01/2023 BUN 26 (H) 12/01/2023 CREATININE 1.76 (H) 12/01/2023 Lab Results Component Value Date WBC 8.22 12/01/2023 HGB 12.0 (L) 12/01/2023 HCT 36.6 (L) 12/01/2023 MCV 92.9 12/01/2023 EXTMCV 91 06/08/2022 PLT 115 (L) 12/01/2023 RBC 3.94 (L) 12/01/2023 Lab Results Component Value Date CHOL 130 11/27/2023 LDLCALC 61 11/27/2023 TRIG 67 11/27/2023 HDL 56 11/27/2023 Lab Results Component Value Date HGBA1C 7.7 (H) 11/27/2023 Lab Results Component Value Date ALT 47 11/27/2023 AST 74 (H) 11/27/2023 ALKPHOS 97 11/27/2023 BILITOT 0.7 11/27/2023 The ASCVD Risk score (Dasha DK, et al., 2019) failed to calculate for the following reasons: The 2019 ASCVD risk score is only valid for ages 40 to 79 The patient has a prior [place] or stroke diagnosis documented in this encounter [facility] 12-29-2023 Telephone encounter Note Pt's called in asking if pt needs to continue the lasix from hospitla if so he needs a refill. Per the note on 12/01/23 per Ellie Aguilar CNP: IV Lasix 20 mg BID, can transition to orals on discharge. Pt has an appt on 01-14-24 with Aylin HUDSON. Pended medication to Dr. Grigsby for her to sign. [facility] 12-29-2023 Miscellaneous Notes Pt's called in asking if pt needs to continue the lasix from hospitla if so he needs a refill. Per the note on 12/01/23 per Ellie Aguilar CNP: IV Lasix 20 mg BID, can transition to orals on discharge. Pt has an appt on 01-14-24 with Aylin HUDSON. Pended medication to Dr. Grigsby for her to sign. documented in this encounter [facility] 12-01-2023 Miscellaneous Notes [id number] ENCOUNTER FOR HOME MEDICAL EQUIPMENT PATIENT: Enoc Fernandes : 1945 Statement of Care: I certify that Enoc Fernandes is under my care and that I, a Nurse Practitioner, Physician's Crew Leader/Control Room Operator, or Resident working with me, had a [id number] encounter with this patient yesterday to evaluate and discuss the need for home medical equipment. I certify that based on the findings of this evaluation, which included but was not limited to the [id number] requirements, the following home medical equipment is medically necessary: Rollator for the treatment of mobility limitations to enable participation in mobility-related activities of daily living (MRADL) in the home. Based on the current evaluation, patient can safely use prescribed equipment to perform mobility-related activities of daily living (MRADL) in the home.. Signed by: Ellie Aguilar CNP on 12/01/2023 Problem: Actual or potential alteration in health Goal: Absence of healthcare acquired conditions Outcome: Partially Met Goal: Knowledge of Interdisciplinary Plan of Care Outcome: Partially Met Goal: Knowledge of Enviroment Outcome: Partially Met Problem: Pressure Ulcer - Risk of Goal: Absence of pressure ulcer Outcome: Partially Met Problem: Anxiety Goal: Goal Outcome: Partially Met Problem: Cardiac Output - Decreased Goal: Cardiac output within specified parameters Outcome: Partially Met Problem: Pain Goal: Manage acute pain Outcome: Partially Met Goal: Manage chronic pain Outcome: Partially Met Goal: Reduced pain sensation Outcome: Partially Met Goal: Achievement of comfort function goal Outcome: Partially Met Patient requests to have his blood sugar checked, says that he feels sweaty this AM. Blood sugar 117. Snack provided. Problem: Actual or potential alteration in health Goal: Absence of healthcare acquired conditions Outcome: Partially Met Goal: Knowledge of Interdisciplinary Plan of Care Outcome: Partially Met Goal: Knowledge of Enviroment Outcome: Partially Met Problem: Pressure Ulcer - Risk of Goal: Absence of pressure ulcer Outcome: Partially Met Problem: Anxiety Goal: Goal Outcome: Partially Met Problem: Cardiac Output - Decreased Goal: Cardiac output within specified parameters Outcome: Partially Met Problem: Pain Goal: Manage acute pain Outcome: Partially Met Goal: Manage chronic pain Outcome: Partially Met Goal: Reduced pain sensation Outcome: Partially Met Goal: Achievement of comfort function goal Outcome: Partially Met Problem: Serum Glucose Level - Abnormal Goal: Glucose level within specified parameters Outcome: Partially Met Problem: Plan for Discharge Goal: Knowledge of discharge plan and instructions Outcome: Partially Met Goal: Knowledge of medication management Outcome: Partially Met Patient no longer in ICU bed. On 2lpm PR. Critical care will sign off. Query 2 of 2 Noted 11/27 [facility] PMHx documentation of CKD Clinical Indicators: Test results: Date: 11/27 11/28 11/29 BUN: 42 33-34 34 Creatinine: 2.03-2.35 1.99-2.03 1.91 GFR: 27-33 33-34 35 Per past medical review, 08/25/2023 Office visit note CKD with baseline creatinine 1.5-1.8 is documented PMHx: CHF, DM I, COPD: chronic hypoxemic respiratory failure, HTN, and HLD Please further specify the diagnosis that most accurately reflects the patient's renal status. For Example: CKD stage 3 POA CKD stage: (please stage, if known) Other (please specify) Chronic Kidney Disease Stages: Stage eGFR I > 90 II 60 - 89 III 30 - 59 IV 15 - 29 V < 15 or dialysis ESRD Thank you, Aubree CRAWFORD RN Clinical Documentation paint coating machine operator After business hours you may contact Ebony Anne at [phone] (Weekdays until 10 PM and weekends 8 AM -10 PM) Noted 11/27 [facility] documentation of heart failure. Clinical Indicators: 11/27 [facility]: CHF....-Continue IV Lasix, check I's and O's, Daily weights PE: Respiratory: lungs diminished CVS: peripheral edema absent PMHx: CHF, DM I, COPD: chronic hypoxemic respiratory failure, HTN, and HLD 11/27 Cardiology CS: chest x-ray in ER pulmonary vascular congestion small bilateral pleural edemas right lower lobe infiltrates LV dysfunction...Known systolic dysfunction echo in October showed ejection fraction 35% by report which was global dysfunction 11/27 Pulmonology CS: Pattern of CHF Small Bilat effusions RLL opacity PE: Respiratory: crackles at base Test results: 11/27: BNP: 45808 Please specify the acuity and type of heart failure in the progress notes. For Example: Acute on chronic systolic CHF POA Chronic systolic CHF, no acute exacerbation Other (please specify) Thank you, Aubree CRAWFORD,FIDEL Clinical Documentation Tax Record Clerk After business hours you may contact Ebony Anne at [phone] (Weekdays until 10 PM and weekends 8 AM -10 PM) Problem: Actual or potential alteration in health Goal: Absence of healthcare acquired conditions Outcome: Partially Met Goal: Knowledge of Interdisciplinary Plan of Care Outcome: Partially Met Goal: Knowledge of Enviroment Outcome: Partially Met Problem: Pressure Ulcer - Risk of Goal: Absence of pressure ulcer Outcome: Partially Met Problem: Anxiety Goal: Goal Outcome: Partially Met Problem: Cardiac Output - Decreased Goal: Cardiac output within specified parameters Outcome: Partially Met Problem: Pain Goal: Manage acute pain Outcome: Partially Met Goal: Manage chronic pain Outcome: Partially Met Goal: Reduced pain sensation Outcome: Partially Met Goal: Achievement of comfort function goal Outcome: Partially Met Problem: Serum Glucose Level - Abnormal Goal: Glucose level within specified parameters Outcome: Partially Met Problem: Plan for Discharge Goal: Knowledge of discharge plan and instructions Outcome: Partially Met Goal: Knowledge of medication management Outcome: Partially Met Problem: Cardiac Output - Decreased Goal: Cardiac output within specified parameters Outcome: Partially Met Problem: Serum Glucose Level - Abnormal Goal: Glucose level within specified parameters Outcome: Partially Met Problem: Plan for Discharge Goal: Knowledge of medication management Outcome: Partially Met Problem: Actual or potential alteration in health Goal: Absence of healthcare acquired conditions Outcome: Met Goal: Knowledge of Interdisciplinary Plan of Care Outcome: Met Goal: Knowledge of Enviroment Outcome: Met Problem: Pressure Ulcer - Risk of Goal: Absence of pressure ulcer Outcome: Met Notified Dr. Yan about orders regarding insulin gtt. No dextrose orders when BG reaches specified limit in his protocol. Waiting for new orders. Will continue to assess patient and treat accordingly. Consult for DM education. Pt NPO and on bipap. Education not appropriate currently. Priscilla Aranda RDN, LD Dietitian's Office [phone] Critical Glucose from [facility] reported to Norma Geiger CNP Alice, provided with updates of transfer to room 3047 from 3039. Informed that patient is on BIPAP for respiratory deficits and on Heparin drip, treating high blood sugar. Appreciative with updates and states will visit around 8 am. Denies further questions at this time. THC Physician - Brief Progress Note PERMANENT 11/27/2023 04:43 [facility] CCU ENOC FERNANDES Date of Service 11/27/2023 04:43 HPI/Events of Note - eICU New Admission Note Patient is a 77 y/o admitted with acute on chronic respiratory failure in setting of pulmonic sepsis and acute pulmonary edema. Patient seen on camera. Cachectic, tolerating NIVV well, bedside team getting PIV in place. Plan includes NIVV support, culture, abx, pressors/steroids/access if indicated, empiric diuresis, echo, heparin gtt, cardiology eval in AM. Patient is in an ICU setting. EPIC reviewed. Patient seen on camera. Interventions Intermediate-Communication with other healthcare providers and/or family, Diagnostic test evaluation, Medication change / dose adjustment Called by RN due to patient SpO2 87% on 2L. RN states she increased to 4L and patient was 90%. Went to patient room and patient was diaphoretic and with increased WOB with RR at 37. Patient placed on bipap and Norma Geiger CLUB WAITER/WAITRESS notified. Patient was then transferred to MICU Patient c/o SOB. Repositioned up in bed with Assist of psa. O2 increased from 2 LNC to 4 LNC. Called Karla p RT due to o2 sats 87- 90 % on 4 Lnc.and informed that patient c/o SOB. Karla RT immediately came to room and replaced on bipap. CLUB WAITER/WAITRESS came to see patient and request patient to be transfer to ICU due to obvious SOB. Patent transported to ICU on bipap while accompanied by Karla from RT and this RN. Patient resting calmly on o2 2 liters via nasal cannula. Request to be placed on bedpan and request urinal. Nancy LANCASTER turned patient and placed patient on bedpan. Critical Glucose 493 from [facility] reported to Norma Geiger CNP EMT TRANSPORTER SET HEPARIN DRIP ON Alaris pump at 8 ml per hr. Informed RT that patient has arrived from [facility] [place]. Attempt to let dr Pereira aware of arrival from [facility] no answer will leave message. documented in this encounter [facility] 12-01-2023 Hospital course Narrative [facility] [place] -- [facility] Enoc Fernandes Admitted: 11/27/2023 Discharge Date: 12/01/23 PCP Handoff Recommended Outpatient Testing None Results Pending At Discharge None Clinical Summary Enoc Fernandes is a 77 y.o. male patient of Ryley Jeter MD with history of HTN, HLD, DM Type I, CKD, COPD, chronic hypoxemic respiratory failure who presented to [facility] with respiratory distress . Severe Sepsis Present on admission: yes Etiology: Pneumonia SIRS criteria: Respiratory rate greater than 20 or PACO2 less than 32mmHg, WBC greater than 12,000, less than 4,000, or greater than 10% bands Evidence of end organ damage: Lactic acid greater than 2.0 Initial lactic acid: 3.8, repeat within normal limits Current antibiotic regimen: Azithromycin/Ceftriaxone Culture data: blood, sputum, urine cultures; urine strep/legionella antigen; MRSA ngtd Acute on chronic hypoxemic respiratory failure Community Acquired Pneumonia S/p COVID infection Wears 2L per NC at baseline, at baseline ID following, continue IV Azithromycin/Ceftriaxone, transition to Augmentin on discharge Scheduled/PRN bronchodilators. 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 DKA resolved, S/p insulin drip Endocrinology following for Insulin titration 14 units of Lantus at night with prandial insulin and Sliding scale-discharge insulin orders per endocrine Essential Hypertension Dyslipidemia Continue amlodipine, metoprolol, ezetimibe CKD stage III present on admission Closely monitor renal function while on IV Lasix, transition to orals Baseline Creatinine around 2 Hematuria Probably related to trauma from [place] S/p heparin drip Discharge Medications Discharge Medications New Medications Details amoxicillin-clavulanate 875-125 mg per tablet Commonly known as: Augmentin Take 1 (one) tablet by mouth 2 (two) times a day for 14 days . Quantity: 28 tablet aspirin 81 MG EC tablet Start taking on: December 02, 2023 Take 1 (one) tablet (81 mg total) by mouth daily Start: 12/02/23. Quantity: 30 tablet furosemide 20 MG tablet Commonly known as: LASIX Take 1 (one) tablet (20 mg total) by mouth 2 (two) times a day . Quantity: 60 tablet Modified Medications Details insulin lispro 100 unit/mL Inpn What changed: additional instructions Use as directed 8 units before breakfast, 9 units before lunch, 8 units before dinner . Quantity: 15 mL lisinopriL 5 MG tablet Commonly known as: PRINIVIL,ZESTRIL What changed: Another medication with the same name was removed. Continue taking this medication, and follow the directions you see here. Take 1 (one) tablet (5 mg total) by mouth daily . Medications To Continue Details amLODIPine 10 MG tablet Commonly known as: NORVASC Take 1 (one) tablet (10 mg total) by mouth daily . Contour Next Test Strips strips Generic drug: blood sugar diagnostic Use as directed 4 times per day. Dx E10.9 Patient with type 1 DM on insulin with hypoglycemia. Needs to check BG QID; takes insulin QID . Quantity: 150 each ezetimibe 10 mg tablet Commonly known as: Zetia Take 1 (one) tablet (10 mg total) by mouth daily . Quantity: 30 tablet insulin glargine 100 unit/mL (3 mL) Inpn Commonly known as: Lantus Solostar U-100 Insulin Inject 14 (fourteen) Units under the skin nightly . Quantity: 15 mL metoprolol succinate 25 MG 24 hr tablet Commonly known as: TOPROL-XL Take 1 (one) tablet (25 mg total) by mouth daily . OXYGEN-AIR DELIVERY SYSTEMS MISC Inhale 2 L/min See Admin Instructions . pen needle, diabetic 32 gauge x 5/32 Ndle Commonly known as: BD Ultra-Fine Jolynn Pen Needle Use as directed 4x daily Dx code E10.65 . Quantity: 400 each Tylenol Arthritis Pain 650 MG CR tablet Generic drug: acetaminophen Take 1 (one) tablet (650 mg total) by mouth every 8 (eight) hours as needed for pain . Stopped Medications lisinopriL 10 MG tablet Commonly known as: PRINIVIL,ZESTRIL You also have another medication with the same name that you need to continue taking as instructed. Physician(s) Follow Up: Ryley Jeter MD [address] [facility] [phone] Follow up Please call to schedule a follow up appointment to be seen in the next 1-2 weeks Condition at Discharge: Stable Disposition: Home with Home Health I reviewed discharge recommendations with the patient in person. Patient instructions, including activity, were given to the patient/family at discharge. On day of discharge I saw Enoc Fernandes and spent: > 30 minutes on discharge. Completed by: Ellie Aguilar on 12/01/23, 11:10 AM documented in this encounter [facility] 12-01-2023 History of Present illness Narrative Physical Therapy PHYSICAL THERAPY TREATMENT NOTE Skilled Therapy Needs After Discharge Are Skilled Therapy Services Needed After Discharge: (pt declines PT services after discharge) DME Recommendation: Rollator (CM notified) DME Rationale: Patient's condition creates an increased risk of safety hazard without recommended equipment, Rollator - patient has a medical condition that requires frequent rest breaks due to fatigue Rehab Potential: Good Outcomes Measures Prior Function - Basic Mobility Raw Score: 24 Points Prior Function - Basic Mobility % Impaired: 0% AM-PAC Basic Mobility Raw Score: 20 Points AM-PAC Basic Mobility % Impaired: 33.32% Activity Tolerance Activity Tolerance: Tolerates 30 min acitivty with multiple rests Therapy Precautions Orthotic Devices: No Weight Bearing Status: WFL General Rehab Precautions: Fall risk Balance Sitting Balance - Static: Modified independent Standing Balance - Static: Supervision, without UE support, with device Neon Molder - Standing Static: wheeled walker Loss of Balance- Standing Static: (none) Standing Balance - Dynamic: Stand by assist Neon Molder - Standing Dynamic: wheeled walker Loss of Balance- Standing Dynamic: (none) Bed Mobility Supine to Sit: Contact guard assist, Head of bed elevated Neon Molder: (none) Skilled Intervention Provided: verbal cues, monitoring patient response with activity, environmental setup/modification, facilitation, provided step by step instructions For: efficient movement, safety during functional tasks, sequencing of movement Resulting in: improved activity tolerance, improved functional independence, improved performance, improved safety, increased upright tolerance for functional tasks Transfers Sit to Stand: Stand by assist Neon Molder: BUE, wheeled walker Additional Transfer Trial 2: Yes Sit to Stand Trial 2: Stand by assist Neon Molder Trial 2: wheeled walker, BUE Skilled Intervention Provided: verbal cues, visual cues, environmental setup/modification, monitoring patient response with activity, provided step by step instructions For: UE positioning, controlled descent, efficient movement, safety during functional tasks, safe use of AD and/or equipment, sequencing of movement Resulting in: improved activity tolerance, improved performance, improved functional independence, improved safety, increased upright tolerance for functional tasks Gait/Locomotion Gait Assistance: Stand by assist Assistive Device: wheeled walker (no rollator present to use) Distance: 100 Feet Rest Breaks: Yes Rest Break Position: standing Additional Gait Trial 2: Yes Gait Assistance Trial 2: Stand by assist Assistive Device Trial 2: wheeled walker Distance Trial 2: 300 Pattern: step through, L impaired heel strike, R decreased step length, L decreased step length, decreased john (steps per minute) Weight Bearing Status: able to maintain Gait Loss(es) of Balance: (none with AD) Environment/Terrain: open/community environment, multiple distractions Stair Management Technique: R rail up/L rail down, step-to pattern, alternating pattern, forwards Stair Management Assistance: Stand by assist Number of Stairs: 4 Skilled Intervention Provided: verbal cues, environmental setup/modification, monitoring patient response with activity, provided step by step instructions, patient education For: device management and safe use of device, efficient movement, fall prevention, gait technique, LE management, obstacle negotiation, pathfinding, self-monitoring during activity, stairs sequence/technique Resulting in: improved activity tolerance, improved efficiency, improved functional independence, improved performance, improved safety, increased upright tolerance for functional tasks, decreasing fall risk Exercise Ankle Pumps: x15 karin Hip Flexion: x15 karin seated Long Arc Quad: x15 karin Skilled Intervention Provided: verbal cues, visual cues, demonstration, instruction on proper technique/alignment, patient education For: achieving full ROM as tolerated, hold duration, muscle activation, number of repetitions Resulting in: improved activity tolerance, improved functional strength/ROM, improved independence with HEP, improved performance Additional Treatment Details Pt on room air this date, pt denies dizziness/SOB during tx. Pt will be using rollator for home use. No rollator present on floor to practice with at this time, however pt educated on safety with rollator, including hand brakes. Pt has good understanding. Pt educated on safe use of stairs, focusing on technique and sequence to decrease fall risk. [facility] with all needs met and call light in reach. No alarm on pt pre tx. Pt understands to use call button for any needs and to not get up without assistance. Home Living Obtained Home Living and PLOF info from: Patient Lives With: Spouse Type of Home: House Home Layout: One level, Able to live on main level with bedroom/bathroom, Performs ADLs on one level (laundry on main) Steps to enter home: Yes Rails to enter home: 2 rails Number of stairs to enter home: 2 Bathroom Shower/Tub: Walk-in shower, Main level Bathroom Toilet: Standard, Main level Bathroom Equipment: Grab bars in shower, Bulit-in shower seat Bathroom Accessibility: Accessible via walker Mobility Equipment: Cane, Home oxygen (PRN 2 L O2;) Prior Level of Function Level of [place] - Transfers/Ambulation/Mobility: Independent with functional transfers, Independent with household ambulation, Independent with community ambulation (no AD for in home ambulation, intermitant use of cane in community for longer distances) Level of [place] - ADLs: Independent Level of [place] - Homemaking: ( takes care of all housework - but reports that he could do it if needed.) Driving: Patient drives Vocational: Retired For complete objective data, detailed plan of care and patient education refer to: PT Evaluation flowsheet, PT Evaluation and Treatment flowsheet, PT Treatment flowsheet, patient Plan of Care, Plan of Care progress note, and Patient Education. This note stands as the current Discharge Summary upon patient discharge from the hospital or completion of Physical Therapy Plan of Care. Patient ID: Patient Name: Enoc Fernandes Admit Date: 11/27/2023 MR #: [id number] : 1945 Current location: [facility] Physicians: Ryley Jeter MD (Family); Britton Geiger CNP (Referring) Reason for consult: Type 1 diabetes Assessment/Plan: Dx: Type 1 diabetes, Currently taking as outpatient: Humalog insulin: 7 units at breakfast; 8 units at lunch; 8-9 units at supper Lantus insulin: 12-14 units at bedtime Humalog sliding scale Current Hemoglobin A1C= Lab Results Component Value Date HGBA1C 7.7 (H) 11/27/2023 HGBA1C 7.5 (H) 11/27/2023 HGBA1C 7.6 06/11/2023 NOTES: 11/27 BG and labs reviewed. Na 142, K 3.4, creat 2.35, eGFR 27, phos 2.3 Mg 2.1, HgbA1c 7.5%, TChol 130, TG 67, HDL 56, LDL 61.Patient remains NPO, on IV insulin. He has testes positive for Covid. 11/28 BG and labs reviewed. Na 142, K 4.3, creat 1.99, CO2-23, eGFR 34, Mg 25, Phos 3.6, WBC 14.22, Hgb 10.8, Hcct 33.6, Plt 151k. He is feeling better, breathing is better. Feels hungry. IV insulin discontinued last night, and he received 14 units Lantus. Discussed smoking cessation with him. 11/29 BG and labs reviewed. Na 137, potassium 4.0, creatinine 1.91, estimated GFR 35, calcium 8.4, BG 234, WBC 10.83, hemoglobin 10.7, hematocrit 32.8, platelet count 130,000. He is anxious to be discharged. He will need to have out patient ETT. 11/30 sodium 138, potassium 3.8, glucose 322, BUN 30, creatinine 1.77, calcium 8.6, WBC 8.89, hemoglobin 11.8, hematocrit 35.9, platelet count 120,000. He is feeling better and eager to go home. He is scheduled for outpatient ETT on Dec 10--may need to reschedule based on cardiology recommendation for ETT in 6 weeks. 12/01: BG and labs reviewed. Patient's BG ranging from 103-278 over last 24 hours. Currently on QID insulin. Patient ready to go home. Na: 142; K: 3.4; Creat: 1.76; eGFR: 39; Ca: 8.9; CBC: WBC: 8.22; Hgb: 12.0; Hct: 36.6; Plt: 115. Patient reports hoping to go home today. He is scheduled for a NST in a week, spoke with his chief of pediatric urology Dr. Grigsby, who will arrange to have test moved out to 6 weeks. Blood Glucoses: 11/27 523---544---132---145---173---85 11/28 167/209---286---182---222 11/29 266---174---168---143 09/09/1011/30 117---308---278---103---190 12/01 87 Plan: 1. Rx changes: 11/27 Continue IV insulin until stable, then resume QID regimen. 11/28 Start 7 units Humalog TID ac and 14 U Lantus q HS. Continue to monitor and adjust. 11/29 Increase to 8/9/8 H, 16L 11/30 adjust insulin to 8/9/8H, 14L 12/01: CPM. Subjective: Brief HPI: Patient is a 77-year-old male with a history of type 1 diabetes mellitus for 29 years, CHF, hypertension, hyperlipidemia, emphysema who presented to [facility] emergency department with a complaint of shortness of breath. He was recently diagnosed with COVID infection on 10/19, and since then he has been experiencing intermittent chest pain and shortness of breath. On 11/27, he developed severe respiratory distress and chest discomfort with diaphoresis, and presented to the emergency department for evaluation. He was found to have bilateral pleural effusions and right lower lobe opacity, elevated troponin 2361, BG 523, T CO2 17. He was transferred to [facility] for further evaluation and treatment. At the time of this consultation he is on CPAP, and is awake and alert, but short of breath. He denies current chest pain. He has been started on IV insulin for management of his hyperglycemia. Patient has had diabetes for 29 years. Diagnosed in 1994. Patient is currently taking Lantus and Humalog. Patient has taken Insulin for 29 years. Currently the patient is receiving IV insulin.. Blood sugar levels since admission have been ranging from 453-523 mg/dL. Current monitoring regimen: home blood tests - 4 times daily Complications of diabetes include: Retinopathy: Negative Nephropathy: Positive Peripheral Neuropathy: Positive Autonomic Neuropathy: Negative 11/27 admission labs sodium 138, potassium 4.8, chloride 107, CO2 21, glucose 523, BUN 42, creatinine 2.24, AST 74, ALT 47, alk phos 97, total bilirubin 0.7, TSH 0.35, CRP less than 2.9, BNP 16,730, troponin 9973, calcium 8.9, WBC 23.69, hemoglobin 11.1, hematocrit 34.0, platelet count 220,000 Allergies: Allergies Allergen Reactions Btnmzos-Zxo-Ykf Reductase Inhibitors Muscle cramps Home Medications: Outpatient Medications Marked as Taking for the 11/27/23 encounter (Hospital Encounter): acetaminophen (Tylenol Arthritis Pain) 650 MG CR tablet, Take 1 (one) tablet (650 mg total) by mouth every 8 (eight) hours as needed for pain . amLODIPine (NORVASC) 10 MG tablet, Take 1 (one) tablet (10 mg total) by mouth daily . ezetimibe (Zetia) 10 mg tablet, Take 1 (one) tablet (10 mg total) by mouth daily . Current Medications: amLODIPine 10 mg Oral Daily aspirin 81 mg Oral Daily azithromycin 500 mg Intravenous Q24H cefTRIAXone (ROCEPHIN) IVPB 2,000 mg Intravenous Q24H ezetimibe 10 mg Oral Daily furosemide 20 mg Intravenous Q12H DIDI insulin glargine 14 Units Subcutaneous Nightly lispro insulin 0-15 Units Subcutaneous at bedtime insulin lispro 0-30 Units Subcutaneous Daily before lunch insulin lispro 0-30 Units Subcutaneous Before dinner insulin lispro 0-30 Units Subcutaneous QAM AC metoprolol succinate 25 mg Oral Daily sodium chloride (PF) 5 mL Intravenous Q8H DIDI acetaminophen, dextrose, ipratropium-albuteroL, [COMPLETED] Insert Indwelling Urethral Catheter AND Maintain and Assess Indwelling Urethral Catheter AND [COMPLETED] Remove and Discontinue Indwelling Urethral Catheter - Remove PER NURSING POLICY AND lidocaine HCL, nitroGLYCERIN, ondansetron OR ondansetron, Saline lock IV AND sodium chloride (PF) AND sodium chloride (PF) AND sodium chloride 0.9 % Review of Systems: Review of Systems Constitutional: Positive for appetite change and fatigue. Negative for unexpected weight change. Eyes: Negative for visual disturbance. Respiratory: Positive for cough and shortness of breath. Negative for chest tightness. Cardiovascular: Negative for chest pain and palpitations. Gastrointestinal: Negative for constipation, diarrhea, nausea and vomiting. Endocrine: Negative for polydipsia, polyphagia and polyuria. Genitourinary: Negative for frequency and urgency. Neurological: Positive for weakness. Negative for numbness. Psychiatric/Behavioral: Positive for sleep disturbance. History: Past Medical History: Diagnosis Date Arthritis CHF [...] disease Father Social History Tobacco Use Smoking status: Every Day Packs/day: 0.50 Years: 51.00 Additional pack years: 0.00 Total pack years: 25.50 Types: Cigarettes Smokeless tobacco: Never Substance Use Topics Alcohol use: No Alcohol/week: 0.0 standard drinks of alcohol Drug use: No The following portions of the patient's history were reviewed and updated as appropriate: allergies, current medications, past family history, past medical history, past social history, past surgical history and problem list. Objective: BP 134/73 (BP Location: Right arm, Patient Position: Sitting) Pulse 91 Temp 97.9 F (36.6 C) (Axillary) Resp 18 Ht 5' 7 Wt 69.4 kg (153 lb) SpO2 94% BMI 23.96 kg/m Wt Readings from Last 3 Encounters: 12/01/23 69.4 kg (153 lb) 10/21/23 67.4 kg (148 lb 11.2 oz) 10/08/23 72.1 kg (159 lb) Physical Exam: Physical Exam Vitals reviewed. Constitutional: Appearance: He is well-developed. HENT: Head: Normocephalic. Eyes: General: No scleral icterus. Conjunctiva/sclera: Conjunctivae normal. Cardiovascular: Rate and Rhythm: Normal rate and regular rhythm. Heart sounds: Normal heart sounds. Pulmonary: Effort: Pulmonary effort is normal. Breath sounds: Normal breath sounds. Skin: General: Skin is warm. Findings: No erythema. Neurological: Mental Status: He is alert and oriented to person, place, and time. Laboratory Review: BP 134/73 (BP Location: Right arm, Patient Position: Sitting) Pulse 91 Temp 97.9 F (36.6 C) (Axillary) Resp 18 Ht 5' 7 Wt 69.4 kg (153 lb) SpO2 94% BMI 23.96 kg/m Lab Results Component Value Date HGBA1C 7.7 (H) 11/27/2023 Glucose (mg/dL) Date Value 12/01/2023 82 11/27/2023 544 (CH) Creatinine (mg/dL) Date Value 12/01/2023 1.76 (H) 06/11/2023 1.85 Lab Results Component Value Date CHOL 130 11/27/2023 TRIG 67 11/27/2023 HDL 56 11/27/2023 LDLCALC 61 11/27/2023 Lab Results Component Value Date TSH 0.35 11/27/2023 No results found for: FREET4 Lab Results Component Value Date WBC 8.22 12/01/2023 HGB 12.0 (L) 12/01/2023 HCT 36.6 (L) 12/01/2023 MCV 92.9 12/01/2023 PLT 115 (L) 12/01/2023 This SmartLink has not been configured with any valid records. This SmartLink has not been configured with any valid records. Laboratory and Additional Data Reviewed: Laboratory 12/01/23 9:29 AM Radiology 12/01/23 9:29 AM Cardiology 12/01/23 9:29 AM Medications 12/01/23 9:29 AM Transcriptions 12/01/23 9:29 AM Thank you for this consultation, we will continue to follow this patient with you. Paty Ortega CNP Care Management Progress Note Date: 12/01/2023 Time: 9:14 AM Patient Name: Enoc Fernandes Date of : 1945 Discharge Plan: D/C Disposition: Home Reason for Choice: Patient/Family preference Discharging Transportation Plan: Transportation Type: Auto Discharge Plan Status: Plan for pt discharge today. [facility] aware to deliver rollator today. Pt also aware plan for discharge today. Pt's family to transport pt to home. Pt declines HHC and out pt therapy. CM to follow. Patient Name: Enoc Fernandes Admit Date: [id number] MR #: [id number] : 1945 Physicians: Ryley Jeter MD (Family); Ger Aguilera DO (Referring) Assessment: Patient with 1. Respiratory failure 2. Suspicion for pneumonia 3. Possible congestive heart failure 4. Non-ST elevation [place]. 5. History of COVID-19 infection. Plan: Continue patient on current therapy Continue patient on IV azithromycin Continue on ceftriaxone From [facility] 5 weeks ago patient was status post IV ceftriaxone and azithromycin treatment. Sputum culture: Showing gram-positive cocci Follow-up labs Follow-up ESR, C-reactive protein, D-dimer level, ferritin level, LDH. Urine for strep antigen and Legionella antigen are negative Patient on IV diuretics with furosemide. Follow-up labs For review chest x-ray, with infrahilar patchy opacities bilaterally. Get CT scan of the chest the patient is stable. Previous x-ray at had shown congestive changes and edema on 11/26/2023. Patient on BiPAP Aspiration precaution recommended Patient was status post 3 shots of COVID-19 immunization in the past. Will continue to follow with you. Subjective: Patient was reevaluated today with no new symptoms. Stated that he slept well last night. Has no fever or chills and is saturating well on room air at 94%. Exam: PACU Vitals 12/01/23 0800 BP: 134/73 Pulse: 91 Resp: 18 Temp: 97.9 F (36.6 C) SpO2: 94% Allergies: Ubvfrxz-zem-pje reductase inhibitors Medications Reviewed. Current Facility-Administered Medications: acetaminophen (TYLENOL) tablet 650 mg, 650 mg, Oral, Q4H PRN, Norma Geiger CNP amLODIPine (NORVASC) tablet 10 mg, 10 mg, Oral, Daily, Norma Geiger CNP, 10 mg at 11/30/23 0843 aspirin EC tablet 81 mg, 81 mg, Oral, Daily, Norma Geiger CNP, 81 mg at 11/30/23 0844 azithromycin (ZITHROMAX) 500 mg in sodium chloride (NS) 0.9% 250 mL (vialmate), 500 mg, Intravenous, Q24H, Norma Geiger CNP, Stopped at 12/01/23 0603 cefTRIAXone (ROCEPHIN) IVPB 2 g (premix), 2,000 mg, Intravenous, Q24H, Norma Geiger CNP, Stopped at 12/01/23 0446 dextrose (D10W) 10% bolus 125 mL, 125 mL, Intravenous, PRN, Lisa Faria PA-C ezetimibe (ZETIA) tablet 10 mg, 10 mg, Oral, Daily, Norma Geiger CNP, 10 mg at 11/30/23 0843 furosemide (LASIX) injection 20 mg, 20 mg, Intravenous, Q12H DIDI, Iraida Alvarado CNP, 20 mg at 12/01/23 0500 insulin glargine (LANTUS) injection 14 Units, 14 Units, Subcutaneous, Nightly, Mary Yan MD, 14 Units at 11/30/23 2017 insulin lispro (AdmeLOG,HumaLOG) injection 0-15 Units, 0-15 Units, Subcutaneous, at bedtime, Mary Yan MD insulin lispro (AdmeLOG,HumaLOG) injection 0-30 Units, 0-30 Units, Subcutaneous, Daily before lunch, Mary Yan MD, 12 Units at 11/30/23 1213 insulin lispro (AdmeLOG,HumaLOG) injection 0-30 Units, 0-30 Units, Subcutaneous, Before dinner, Mary Yan MD, 9 Units at 11/30/23 1706 insulin lispro (AdmeLOG,HumaLOG) injection 0-30 Units, 0-30 Units, Subcutaneous, QAM AC, Mary Yan MD, 13 Units at 11/30/23 0843 ipratropium-albuteroL (DUO-NEB) 0.5-2.5 mg/3 ml nebulizer solution 3 mL, 3 mL, Inhalation, Q2H PRN, Norma Geiger CNP [COMPLETED] Insert Indwelling Urethral Catheter, , , Once AND Maintain and Assess Indwelling Urethral Catheter, , , Q12H AND [COMPLETED] Remove and Discontinue Indwelling Urethral Catheter - Remove PER NURSING POLICY , , , Once AND lidocaine HCL (UROJET/GLYDO) 2 % applicator 1 Application, 1 Application, Intra-urethral, PRN, Norma Geiger CNP metoprolol succinate (TOPROL-XL) 24 hr tablet 25 mg, 25 mg, Oral, Daily, Norma Geiger CNP, 25 mg at 11/30/23 0843 nitroGLYCERIN (NITROSTAT) SL tablet 0.4 mg, 0.4 mg, Sublingual, Q5 Min PRN, Norma Geiger CNP ondansetron (ZOFRAN-ODT) disintegrating tablet 4 mg, 4 mg, Oral, Q6H PRN OR ondansetron (ZOFRAN) injection 4 mg, 4 mg, Intravenous, Q6H PRN, Norma Geiger CNP Saline lock IV, , , Continuous AND sodium chloride (PF) (NS) flush 5 mL, 5 mL, Intravenous, PRN, 5 mL at 12/01/235 AND sodium chloride (PF) (NS) flush 5 mL, 5 mL, Intravenous, Q8H DIDI, 5 mL at 11/30/23 2017 AND sodium chloride 0.9% (NS), 0-150 mL/hr, Intravenous, PRN, Norma Geiger CNP Review of Systems: Constitutional: Negative for fatigue, change in appetite, chills and fever. HENT: Negative for congestion and rhinorrhea. Negative for ear pain, sore throat. Eyes: Negative for pain and redness. Respiratory: Negative for cough and shortness of breath. Cardiovascular: Negative for chest pain and palpitations. Gastrointestinal: Negative for abdominal pain, constipation, diarrhea, nausea and vomiting. Genitourinary: Negative for difficulty urinating, dysuria, frequency, hesitancy, flank pain Musculoskeletal: Negative for back pain, neck pain and neck stiffness. Skin: Negative for color change and rash. Neurological: Negative for lightheadedness, dizziness, syncope, weakness and headaches. Psychiatric/Behavioral: Negative for confusion, hallucinations and suicidal ideas. Positives and pertinent negatives as per HPI. PMH/PSH/SH/FH reviewed, no change Chart Reviewed. Exam Findings: ENT: No oral candidiasis Chest: Lungs clear bilaterally, no wheezing, or rales. CVS: Normal S1 & S2+, Normal Rhythm Abdomen: Normal symmetry, Soft/non-tender. Benign, BS+ Extremities: No Deformities or Edema Skin: Intact & No Rashes, or excoriations Musculoskeletal: No joint swelling, non tender EDGE BANDING OFF BEARER: Awake, and Ox3 Wound: No Henley Catheter: None IV Access: yes I reviewed Medications. I reviewed Labs. Echocardiogram complete Final Result CT Chest High Resolution without contrast with complete scan Final Result 1. Mild ground-glass opacities in the right middle and left upper lobes, likely infectious or inflammatory. 2. Mild emphysema with bilateral lower lobe consolidative fibrosis. 3. Small right and trace left pleural effusions. 4. Right upper lobe perifissural 5 mm solid nodule. Consider follow-up CT of the chest in 1 year to confirm stability. 5. Severe coronary artery calcifications. Workstation ID: [id number] XR Chest 1 View Final Result Bilateral infrahilar patchy opacities, concerning for pneumonia. [email or web address] Workstation ID: [id number] Laboratory and Additional Data Reviewed: Laboratory 12/01/23 8:49 AM Microbiology 12/01/23 8:49 AM Radiology 12/01/23 8:49 AM Medications 12/01/23 8:49 AM Lab Results Component Value Date WBC 8.22 12/01/2023 HGB 12.0 (L) 12/01/2023 HCT 36.6 (L) 12/01/2023 MCV 92.9 12/01/2023 PLT 115 (L) 12/01/2023 Lab Results Component Value Date GLUCOSE 82 12/01/2023 CALCIUM 8.9 12/01/2023 NA 142 12/01/2023 K 3.4 (L) 12/01/2023 CL 105 12/01/2023 BUN 26 (H) 12/01/2023 CREATININE 1.76 (H) 12/01/2023 Problem List Items Addressed This Visit None Visit Diagnoses Severe sepsis (HCC) - Primary Relevant Orders Rollator walker with seat Community acquired pneumonia, unspecified laterality Relevant Medications ipratropium-albuteroL (DUO-NEB) 0.5-2.5 mg/3 ml nebulizer solution 3 mL Other Relevant Orders Rollator walker with seat Acute on chronic respiratory failure with hypoxemia (HCC) Relevant Medications ipratropium-albuteroL (DUO-NEB) 0.5-2.5 mg/3 ml nebulizer solution 3 mL Other Relevant Orders Rollator walker with seat Non-ST elevated myocardial infarction (non-STEMI) (HCC) Relevant Medications amLODIPine (NORVASC) tablet 10 mg ezetimibe (ZETIA) tablet 10 mg metoprolol succinate (TOPROL-XL) 24 hr tablet 25 mg aspirin EC tablet 81 mg nitroGLYCERIN (NITROSTAT) SL tablet 0.4 mg furosemide (LASIX) injection 20 mg Other Relevant Orders Rollator walker with seat Acute on chronic systolic (congestive) heart failure (HCC) Relevant Medications amLODIPine (NORVASC) tablet 10 mg ezetimibe (ZETIA) tablet 10 mg metoprolol succinate (TOPROL-XL) 24 hr tablet 25 mg aspirin EC tablet 81 mg nitroGLYCERIN (NITROSTAT) SL tablet 0.4 mg furosemide (LASIX) injection 20 mg Other Relevant Orders Rollator walker with seat I discussed my management plans with Patient/and or Family member, and also discussed antibiotics therapy including side effects with Patient/and or Family member. Medical Decision Making: Moderate This note is created with the assistance of a speech-recognition program. While intending to generate a document that actually reflects the content of the visit, the document can still have some errors including those of syntax and sound a- like substitutions which may escape proofreading. In such instances, actual meaning can be extrapolated by contextual derivation. [facility] Assessment and Plan Enoc Fernandes is a 77 y.o. male patient of Ryley Jeter MD with history of HTN, HLD, DM Type I, CKD, COPD, chronic hypoxemic respiratory failure who presented to [facility] with respiratory distress . Severe Sepsis Present on admission: yes Etiology: Pneumonia SIRS criteria: Respiratory rate greater than 20 or PACO2 less than 32mmHg, WBC greater than 12,000, less than 4,000, or greater than 10% bands Evidence of end organ damage: Lactic acid greater than 2.0 Initial lactic acid: 3.8, repeat within normal limits Current antibiotic regimen: Azithromycin/Ceftriaxone Culture data: blood, sputum, urine cultures; urine strep/legionella antigen; MRSA ngtd Acute on chronic hypoxemic respiratory failure Community Acquired Pneumonia S/p COVID infection Wears 2L per NC at baseline, at baseline ID following, continue IV Azithromycin/Ceftriaxone Scheduled/PRN bronchodilators. 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 DKA resolved, S/p insulin drip Endocrinology following for Insulin titration 14 units of Lantus at night with prandial insulin and Sliding scale Essential Hypertension Dyslipidemia Continue amlodipine, metoprolol, ezetimibe CKD stage III present on admission Closely monitor renal function while on IV Lasix Baseline Creatinine around 2 Hematuria Probably related to trauma from Henley S/p heparin drip Continue to monitor Discharge Planning Medically Stable for Discharge Date: 12/01/23 Patient requires continued hospitalization due to: Ongoing treatment for pneumonia and CHF Discharge Location: [facility] Quality Measures DVT Prophylaxis:scd Henley Catheter: present Code Status full code Subjective Patient denies any worsening shortness of breath. Eager for discharge. Objective BP (!) 173/82 Pulse 81 Temp 97.7 F (36.5 C) (Oral) Resp 18 Ht 5' 7 Wt 65.4 kg (144 lb 1.6 oz) SpO2 97% BMI 22.57 kg/m Physical Examination General Appearance: alert; well appearing; in no acute distress HEENT: Head- normocephalic; Eyes- EOMI, sclera anicteric; Throat- mucous membranes moist Cardiovascular: regular rate and rhythm; normal S1, S2; no murmurs, rubs, clicks or gallops; peripheral edema absent Respiratory: lungs clear to auscultation; without wheezes, rales or rhonchi; on nasal cannula Abdomen: soft, non-tender, non-distended Neurological: oriented x 3; normal speech; no focal findings or movement disorder noted Musculoskeletal: no significant deformity or tenderness to palpation Skin: normal coloration Psych: normal mood and affect Patient Name: Enoc Fernandes Admit Date: [id number] MR #: [id number] : 1945 Physicians: Ryley Jeter MD (Family); Ger Aguilera DO (Referring) Assessment: Patient with 1. Respiratory failure 2. Suspicion for pneumonia 3. Possible congestive heart failure 4. Non-ST elevation [place]. 5. History of COVID-19 infection. Plan: Continue patient on current therapy Continue patient on IV azithromycin Continue on ceftriaxone From [facility] 5 weeks ago patient was status post IV ceftriaxone and azithromycin treatment. Sputum culture: Showing gram-positive cocci Follow-up labs Follow-up ESR, C-reactive protein, D-dimer level, ferritin level, LDH. Urine for strep antigen and Legionella antigen are negative Patient on IV diuretics with furosemide. Follow-up labs For review chest x-ray, with infrahilar patchy opacities bilaterally. Get CT scan of the chest the patient is stable. Previous x-ray at had shown congestive changes and edema on 11/26/2023. Patient on BiPAP Aspiration precaution recommended Patient was status post 3 shots of COVID-19 immunization in the past. Will continue to follow with you. Subjective: Patient is seen today in his room in very stable condition. Patient stated that he is doing well today and has no fever or chills. Saturating on 2 L of oxygen at 97%. Exam: PACU Vitals 11/30/23 0839 BP: (!) 173/82 Pulse: 81 Resp: Temp: 97.7 F (36.5 C) SpO2: 97% Allergies: Oznbijn-tjv-tgc reductase inhibitors Medications Reviewed. Current Facility-Administered Medications: acetaminophen (TYLENOL) tablet 650 mg, 650 mg, Oral, Q4H PRN, Norma Geiger CNP amLODIPine (NORVASC) tablet 10 mg, 10 mg, Oral, Daily, Norma Geiger CNP, 10 mg at 11/30/23 0843 aspirin EC tablet 81 mg, 81 mg, Oral, Daily, Norma Geiger CNP, 81 mg at 11/30/23 0844 azithromycin (ZITHROMAX) 500 mg in sodium chloride (NS) 0.9% 250 mL (vialmate), 500 mg, Intravenous, Q24H, Norma Geiger CNP, Stopped at 11/30/23 0505 cefTRIAXone (ROCEPHIN) IVPB 2 g (premix), 2,000 mg, Intravenous, Q24H, Norma Geiger CNP, Stopped at 11/30/23 0539 dextrose (D10W) 10% bolus 125 mL, 125 mL, Intravenous, PRN, Lisa Faria PA-C ezetimibe (ZETIA) tablet 10 mg, 10 mg, Oral, Daily, Norma Geiger CNP, 10 mg at 11/30/23 0843 furosemide (LASIX) injection 20 mg, 20 mg, Intravenous, Q12H DIDI, Iraida Alvarado CNP, 20 mg at 11/30/23 0549 insulin glargine (LANTUS) injection 14 Units, 14 Units, Subcutaneous, Nightly, Mary Yan MD insulin lispro (AdmeLOG,HumaLOG) injection 0-15 Units, 0-15 Units, Subcutaneous, at bedtime, Mary Yan MD insulin lispro (AdmeLOG,HumaLOG) injection 0-30 Units, 0-30 Units, Subcutaneous, Daily before lunch, Mary Yan MD, 9 Units at 11/29/23 1200 insulin lispro (AdmeLOG,HumaLOG) injection 0-30 Units, 0-30 Units, Subcutaneous, Before dinner, Mary Yan MD, 10 Units at 11/29/23 1650 insulin lispro (AdmeLOG,HumaLOG) injection 0-30 Units, 0-30 Units, Subcutaneous, QAM AC, Mary Yan MD, 13 Units at 11/30/23 0843 ipratropium-albuteroL (DUO-NEB) 0.5-2.5 mg/3 ml nebulizer solution 3 mL, 3 mL, Inhalation, Q2H PRN, Norma Geiger CNP [COMPLETED] Insert Indwelling Urethral Catheter, , , Once AND Maintain and Assess Indwelling Urethral Catheter, , , Q12H AND [COMPLETED] Remove and Discontinue Indwelling Urethral Catheter - Remove PER NURSING POLICY , , , Once AND lidocaine HCL (UROJET/GLYDO) 2 % applicator 1 Application, 1 Application, Intra-urethral, PRN, Norma Geiger CNP metoprolol succinate (TOPROL-XL) 24 hr tablet 25 mg, 25 mg, Oral, Daily, Norma Geiger CNP, 25 mg at 11/30/23 0843 nitroGLYCERIN (NITROSTAT) SL tablet 0.4 mg, 0.4 mg, Sublingual, Q5 Min PRN, Norma Geiger CNP ondansetron (ZOFRAN-ODT) disintegrating tablet 4 mg, 4 mg, Oral, Q6H PRN OR ondansetron (ZOFRAN) injection 4 mg, 4 mg, Intravenous, Q6H PRN, Norma Geiger CNP Saline lock IV, , , Continuous AND sodium chloride (PF) (NS) flush 5 mL, 5 mL, Intravenous, PRN AND sodium chloride (PF) (NS) flush 5 mL, 5 mL, Intravenous, Q8H DIDI, 5 mL at 11/30/23 0551 AND sodium chloride 0.9% (NS), 0-150 mL/hr, Intravenous, PRN, Norma Geiger CNP Review of Systems: Constitutional: Negative for fatigue, change in appetite, chills and fever. HENT: Negative for congestion and rhinorrhea. Negative for ear pain, sore throat. Eyes: Negative for pain and redness. Respiratory: Negative for cough and shortness of breath. Cardiovascular: Negative for chest pain and palpitations. Gastrointestinal: Negative for abdominal pain, constipation, diarrhea, nausea and vomiting. Genitourinary: Negative for difficulty urinating, dysuria, frequency, hesitancy, flank pain Musculoskeletal: Negative for back pain, neck pain and neck stiffness. Skin: Negative for color change and rash. Neurological: Negative for lightheadedness, dizziness, syncope, weakness and headaches. Psychiatric/Behavioral: Negative for confusion, hallucinations and suicidal ideas. Positives and pertinent negatives as per HPI. PMH/PSH/SH/FH reviewed, no change Chart Reviewed. Exam Findings: ENT: No oral candidiasis Chest: Lungs clear bilaterally, no wheezing, or rales. CVS: Normal S1 & S2+, Normal Rhythm Abdomen: Normal symmetry, Soft/non-tender. Benign, BS+ Extremities: No Deformities or Edema Skin: Intact & No Rashes, or excoriations Musculoskeletal: No joint swelling, non tender EDGE BANDING OFF BEARER: Awake, and Ox3 Wound: No Henley Catheter: None IV Access: yes I reviewed Medications. I reviewed Labs. CT Chest High Resolution without contrast with complete scan Final Result 1. Mild ground-glass opacities in the right middle and left upper lobes, likely infectious or inflammatory. 2. Mild emphysema with bilateral lower lobe consolidative fibrosis. 3. Small right and trace left pleural effusions. 4. Right upper lobe perifissural 5 mm solid nodule. Consider follow-up CT of the chest in 1 year to confirm stability. 5. Severe coronary artery calcifications. Workstation ID: [id number] XR Chest 1 View Final Result Bilateral infrahilar patchy opacities, concerning for pneumonia. [facility]/s Workstation ID: [id number] Echocardiogram complete (Results Pending) Laboratory and Additional Data Reviewed: Laboratory 11/30/23 8:55 AM Microbiology 11/30/23 8:55 AM Radiology 11/30/23 8:55 AM Medications 11/30/23 8:55 AM Lab Results Component Value Date WBC 8.89 11/30/2023 HGB 11.8 (L) 11/30/2023 HCT 35.9 (L) 11/30/2023 MCV 92.8 11/30/2023 PLT 120 (L) 11/30/2023 Lab Results Component Value Date GLUCOSE 322 (H) 11/30/2023 CALCIUM 8.6 11/30/2023 NA 138 11/30/2023 K 3.8 11/30/2023 CL 104 11/30/2023 BUN 30 (H) 11/30/2023 CREATININE 1.77 (H) 11/30/2023 Problem List Items Addressed This Visit None I discussed my management plans with Patient/and or Family member, and also discussed antibiotics therapy including side effects with Patient/and or Family member. Medical Decision Making: Moderate This note is created with the assistance of a speech-recognition program. While intending to generate a document that actually reflects the content of the visit, the document can still have some errors including those of syntax and sound a- like substitutions which may escape proofreading. In such instances, actual meaning can be extrapolated by contextual derivation. Patient ID: Patient Name: Enoc Fernandes Admit Date: 11/27/2023 MR #: [id number] : 1945 Current location: [facility] Physicians: Ryley Jeter MD (Family); Britton Geiger CNP (Referring) Reason for consult: Type 1 diabetes Assessment/Plan: Dx: Type 1 diabetes, Currently taking as outpatient: Humalog insulin: 7 units at breakfast; 8 units at lunch; 8-9 units at supper Lantus insulin: 12-14 units at bedtime Humalog sliding scale Current Hemoglobin A1C= Lab Results Component Value Date HGBA1C 7.7 (H) 11/27/2023 HGBA1C 7.5 (H) 11/27/2023 HGBA1C 7.6 06/11/2023 NOTES: 11/27 BG and labs reviewed. Na 142, K 3.4, creat 2.35, eGFR 27, phos 2.3 Mg 2.1, HgbA1c 7.5%, TChol 130, TG 67, HDL 56, LDL 61.Patient remains NPO, on IV insulin. He has testes positive for Covid. 11/28 BG and labs reviewed. Na 142, K 4.3, creat 1.99, CO2-23, eGFR 34, Mg 25, Phos 3.6, WBC 14.22, Hgb 10.8, Hcct 33.6, Plt 151k. He is feeling better, breathing is better. Feels hungry. IV insulin discontinued last night, and he received 14 units Lantus. Discussed smoking cessation with him. 11/29 BG and labs reviewed. Na 137, potassium 4.0, creatinine 1.91, estimated GFR 35, calcium 8.4, BG 234, WBC 10.83, hemoglobin 10.7, hematocrit 32.8, platelet count 130,000. He is anxious to be discharged. He will need to have out patient ETT. 11/30 sodium 138, potassium 3.8, glucose 322, BUN 30, creatinine 1.77, calcium 8.6, WBC 8.89, hemoglobin 11.8, hematocrit 35.9, platelet count 120,000. He is feeling better and eager to go home. He is scheduled for outpatient ETT on Dec 10--may need to reschedule based on cardiology recommendation for ETT in 6 weeks. Blood Glucoses: 11/27 523---544---132---145---173---85 11/28 167/209---286---182---222 11/29 266---174---168---143 09/09/1011/30 117---308---278---103---190 Plan: 1. Rx changes: 11/27 Continue IV insulin until stable, then resume QID regimen. 11/28 Start 7 units Humalog TID ac and 14 U Lantus q HS. Continue to monitor and adjust. 11/29 Increase to 8/9/8 H, 16L 11/30 adjust insulin to 8/9/8H, 14L. Subjective: Brief HPI: Patient is a 77-year-old male with a history of type 1 diabetes mellitus for 29 years, CHF, hypertension, hyperlipidemia, emphysema who presented to [facility] emergency department with a complaint of shortness of breath. He was recently diagnosed with COVID infection on 10/19, and since then he has been experiencing intermittent chest pain and shortness of breath. On 11/27, he developed severe respiratory distress and chest discomfort with diaphoresis, and presented to the emergency department for evaluation. He was found to have bilateral pleural effusions and right lower lobe opacity, elevated troponin 2361, BG 523, T CO2 17. He was transferred to [facility] for further evaluation and treatment. At the time of this consultation he is on CPAP, and is awake and alert, but short of breath. He denies current chest pain. He has been started on IV insulin for management of his hyperglycemia. Patient has had diabetes for 29 years. Diagnosed in 1994. Patient is currently taking Lantus and Humalog. Patient has taken Insulin for 29 years. Currently the patient is receiving IV insulin.. Blood sugar levels since admission have been ranging from 453-523 mg/dL. Current monitoring regimen: home blood tests - 4 times daily Complications of diabetes include: Retinopathy: Negative Nephropathy: Positive Peripheral Neuropathy: Positive Autonomic Neuropathy: Negative 11/27 admission labs sodium 138, potassium 4.8, chloride 107, CO2 21, glucose 523, BUN 42, creatinine 2.24, AST 74, ALT 47, alk phos 97, total bilirubin 0.7, TSH 0.35, CRP less than 2.9, BNP 16,730, troponin 9973, calcium 8.9, WBC 23.69, hemoglobin 11.1, hematocrit 34.0, platelet count 220,000 Allergies: Allergies Allergen Reactions Hrxyldg-Mcr-Bjz Reductase Inhibitors Muscle cramps Home Medications: Outpatient Medications Marked as Taking for the 11/27/23 encounter (Hospital Encounter): acetaminophen (Tylenol Arthritis Pain) 650 MG CR tablet, Take 1 (one) tablet (650 mg total) by mouth every 8 (eight) hours as needed for pain . amLODIPine (NORVASC) 10 MG tablet, Take 1 (one) tablet (10 mg total) by mouth daily . ezetimibe (Zetia) 10 mg tablet, Take 1 (one) tablet (10 mg total) by mouth daily . Current Medications: amLODIPine 10 mg Oral Daily aspirin 81 mg Oral Daily azithromycin 500 mg Intravenous Q24H cefTRIAXone (ROCEPHIN) IVPB 2,000 mg Intravenous Q24H ezetimibe 10 mg Oral Daily furosemide 20 mg Intravenous Q12H DIDI insulin glargine 16 Units Subcutaneous Nightly lispro insulin 0-15 Units Subcutaneous at bedtime insulin lispro 0-30 Units Subcutaneous Daily before lunch insulin lispro 0-30 Units Subcutaneous Before dinner insulin lispro 0-30 Units Subcutaneous QAM AC metoprolol succinate 25 mg Oral Daily sodium chloride (PF) 5 mL Intravenous Q8H [facility] acetaminophen, dextrose, ipratropium-albuteroL, [COMPLETED] Insert Indwelling Urethral Catheter AND Maintain and Assess Indwelling Urethral Catheter AND [COMPLETED] Remove and Discontinue Indwelling Urethral Catheter - Remove PER NURSING POLICY AND lidocaine HCL, nitroGLYCERIN, ondansetron OR ondansetron, Saline lock IV AND sodium chloride (PF) AND sodium chloride (PF) AND sodium chloride 0.9 % Review of Systems: Review of Systems Constitutional: Positive for appetite change and fatigue. Negative for unexpected weight change. Eyes: Negative for visual disturbance. Respiratory: Positive for cough and shortness of breath. Negative for chest tightness. Cardiovascular: Negative for chest pain and palpitations. Gastrointestinal: Negative for constipation, diarrhea, nausea and vomiting. Endocrine: Negative for polydipsia, polyphagia and polyuria. Genitourinary: Negative for frequency and urgency. Neurological: Positive for weakness. Negative for numbness. Psychiatric/Behavioral: Positive for sleep disturbance. History: Past Medical History: Diagnosis Date Arthritis CHF [...] disease Father Social History Tobacco Use Smoking status: Every Day Packs/day: 0.50 Years: 51.00 Additional pack years: 0.00 Total pack years: 25.50 Types: Cigarettes Smokeless tobacco: Never Substance Use Topics Alcohol use: No Alcohol/week: 0.0 standard drinks of alcohol Drug use: No The following portions of the patient's history were reviewed and updated as appropriate: allergies, current medications, past family history, past medical history, past social history, past surgical history and problem list. Objective: BP (!) 173/82 Pulse 81 Temp 97.7 F (36.5 C) (Oral) Resp 18 Ht 5' 7 Wt 65.4 kg (144 lb 1.6 oz) SpO2 97% BMI 22.57 kg/m Wt Readings from Last 3 Encounters: 11/29/23 65.4 kg (144 lb 1.6 oz) 12/21/23 67.4 kg (148 lb 11.2 oz) 10/08/23 72.1 kg (159 lb) Physical Exam: Physical Exam Vitals reviewed. Constitutional: Appearance: He is well-developed. HENT: Head: Normocephalic. Eyes: General: No scleral icterus. Conjunctiva/sclera: Conjunctivae normal. Cardiovascular: Rate and Rhythm: Normal rate and regular rhythm. Heart sounds: Normal heart sounds. Pulmonary: Effort: Pulmonary effort is normal. Breath sounds: Normal breath sounds. Skin: General: Skin is warm. Findings: No erythema. Neurological: Mental Status: He is alert and oriented to person, place, and time. Laboratory Review: BP (!) 173/82 Pulse 81 Temp 97.7 F (36.5 C) (Oral) Resp 18 Ht 5' 7 Wt 65.4 kg (144 lb 1.6 oz) SpO2 97% BMI 22.57 kg/m Lab Results Component Value Date HGBA1C 7.7 (H) 11/27/2023 Glucose (mg/dL) Date Value 11/30/2023 322 (H) 11/27/2023 544 (CH) Creatinine (mg/dL) Date Value 11/30/2023 1.77 (H) 06/11/2023 1.85 Lab Results Component Value Date CHOL 130 11/27/2023 TRIG 67 11/27/2023 HDL 56 11/27/2023 LDLCALC 61 11/27/2023 Lab Results Component Value Date TSH 0.35 11/27/2023 No results found for: FREET4 Lab Results Component Value Date WBC 8.89 11/30/2023 HGB 11.8 (L) 11/30/2023 HCT 35.9 (L) 11/30/2023 MCV 92.8 11/30/2023 PLT 120 (L) 11/30/2023 This SmartLink has not been configured with any valid records. This SmartLink has not been configured with any valid records. Laboratory and Additional Data Reviewed: Laboratory 11/30/23 8:39 AM Radiology 11/30/23 8:39 AM Cardiology 11/30/23 8:39 AM Medications 11/30/23 8:39 AM Transcriptions 11/30/23 8:39 AM Thank you for this consultation, we will continue to follow this patient with you. Mary Yan MD Patient Name: Enoc Fernandes Admit Date: [id number] MR #: [id number] : 1945 Physicians: Ryley Jeter MD (Family); Ger Aguilera DO (Referring) Assessment: Patient with 1. Respiratory failure 2. Suspicion for pneumonia 3. Possible congestive heart failure 4. Non-ST elevation [place]. 5. History of COVID-19 infection. Plan: Continue patient on current therapy Continue patient on IV azithromycin Continue on ceftriaxone From [facility] 5 weeks ago patient was status post IV ceftriaxone and azithromycin treatment. Sputum culture: Showing gram-positive cocci Follow-up labs Follow-up ESR, C-reactive protein, D-dimer level, ferritin level, LDH. Urine for strep antigen and Legionella antigen are negative Patient on IV diuretics with furosemide. Follow-up labs For review chest x-ray, with infrahilar patchy opacities bilaterally. Get CT scan of the chest the patient is stable. Previous x-ray at had shown congestive changes and edema on 11/26/2023. Patient on BiPAP Aspiration precaution recommended Patient was status post 3 shots of COVID-19 immunization in the past. Will continue to follow with you. Subjective: Patient is seen today in his room lying quietly on his bed and was reevaluated with no new symptoms. Patient stated that he is doing well today and has no fever or chills. Saturating on 2 L of oxygen at 97%. Exam: PACU Vitals 11/29/23 1120 BP: (!) 148/71 Pulse: 76 Resp: 16 Temp: 97.9 F (36.6 C) SpO2: 97% Allergies: Xtdzfqj-toc-dsg reductase inhibitors Medications Reviewed. Current Facility-Administered Medications: acetaminophen (TYLENOL) tablet 650 mg, 650 mg, Oral, Q4H PRN, Norma Geiger CNP amLODIPine (NORVASC) tablet 10 mg, 10 mg, Oral, Daily, Norma Geiger CNP, 10 mg at 11/29/23 0749 aspirin EC tablet 81 mg, 81 mg, Oral, Daily, Norma Geiger CNP, 81 mg at 11/29/23 0750 atorvastatin (LIPITOR) tablet 20 mg, 20 mg, Oral, Nightly, Norma Geiger CNP, 20 mg at 11/28/23 2214 azithromycin (ZITHROMAX) 500 mg in sodium chloride (NS) 0.9% 250 mL (vialmate), 500 mg, Intravenous, Q24H, Norma Geiger CNP, Last Rate: 250 mL/hr at 11/29/23 0457, 500 mg at 11/29/23 0457 cefTRIAXone (ROCEPHIN) IVPB 2 g (premix), 2,000 mg, Intravenous, Q24H, Norma Geiger CNP, Last Rate: 100 mL/hr at 11/29/23 0412, 2,000 mg at 11/29/23 0412 dextrose (D10W) 10% bolus 125 mL, 125 mL, Intravenous, PRN, Lisa Faria PA-C ezetimibe (ZETIA) tablet 10 mg, 10 mg, Oral, Daily, Norma Geiger CNP, 10 mg at 11/29/23 0749 furosemide (LASIX) injection 20 mg, 20 mg, Intravenous, Q12H DIDI, Iraida Alvarado CNP, 20 mg at 11/29/23 0611 insulin glargine (LANTUS) injection 16 Units, 16 Units, Subcutaneous, Nightly, Mary Yan MD insulin lispro (AdmeLOG,HumaLOG) injection 0-15 Units, 0-15 Units, Subcutaneous, at bedtime, Mary Yan MD insulin lispro (AdmeLOG,HumaLOG) injection 0-30 Units, 0-30 Units, Subcutaneous, Daily before lunch, Mary Yan MD, 9 Units at 11/29/23 1200 insulin lispro (AdmeLOG,HumaLOG) injection 0-30 Units, 0-30 Units, Subcutaneous, Before dinner, Mary Yan MD [START ON 11/30/2023] insulin lispro (AdmeLOG,HumaLOG) injection 0-30 Units, 0-30 Units, Subcutaneous, QAM Yuriy THORNTON Cynthia Ann, MD ipratropium-albuteroL (DUO-NEB) 0.5-2.5 mg/3 ml nebulizer solution 3 mL, 3 mL, Inhalation, Q2H PRN, Norma Geiger CNP [COMPLETED] Insert Indwelling Urethral Catheter, , , Once AND Maintain and Assess Indwelling Urethral Catheter, , , Q12H AND [COMPLETED] Remove and Discontinue Indwelling Urethral Catheter - Remove PER NURSING POLICY , , , Once AND lidocaine HCL (UROJET/GLYDO) 2 % applicator 1 Application, 1 Application, Intra-urethral, PRN, Norma Geiger CNP metoprolol succinate (TOPROL-XL) 24 hr tablet 25 mg, 25 mg, Oral, Daily, Norma Geiger CNP, 25 mg at 11/29/23 0749 nitroGLYCERIN (NITROSTAT) SL tablet 0.4 mg, 0.4 mg, Sublingual, Q5 Min PRN, Norma Geiger CNP ondansetron (ZOFRAN-ODT) disintegrating tablet 4 mg, 4 mg, Oral, Q6H PRN OR ondansetron (ZOFRAN) injection 4 mg, 4 mg, Intravenous, Q6H PRN, Norma Geiger CNP Saline lock IV, , , Continuous AND sodium chloride (PF) (NS) flush 5 mL, 5 mL, Intravenous, PRN AND sodium chloride (PF) (NS) flush 5 mL, 5 mL, Intravenous, Q8H DIDI, 5 mL at 11/29/23 1409 AND sodium chloride 0.9% (NS), 0-150 mL/hr, Intravenous, PRN, Norma Geiger CNP Review of Systems: Constitutional: Negative for fatigue, change in appetite, chills and fever. HENT: Negative for congestion and rhinorrhea. Negative for ear pain, sore throat. Eyes: Negative for pain and redness. Respiratory: Negative for cough and shortness of breath. Cardiovascular: Negative for chest pain and palpitations. Gastrointestinal: Negative for abdominal pain, constipation, diarrhea, nausea and vomiting. Genitourinary: Negative for difficulty urinating, dysuria, frequency, hesitancy, flank pain Musculoskeletal: Negative for back pain, neck pain and neck stiffness. Skin: Negative for color change and rash. Neurological: Negative for lightheadedness, dizziness, syncope, weakness and headaches. Psychiatric/Behavioral: Negative for confusion, hallucinations and suicidal ideas. Positives and pertinent negatives as per HPI. PMH/PSH/SH/FH reviewed, no change Chart Reviewed. Exam Findings: ENT: No oral candidiasis Chest: Lungs clear bilaterally, no wheezing, or rales. CVS: Normal S1 & S2+, Normal Rhythm Abdomen: Normal symmetry, Soft/non-tender. Benign, BS+ Extremities: No Deformities or Edema Skin: Intact & No Rashes, or excoriations Musculoskeletal: No joint swelling, non tender EDGE BANDING OFF BEARER: Awake, and Ox3 Wound: No Henley Catheter: None IV Access: yes I reviewed Medications. I reviewed Labs. XR Chest 1 View Final Result Bilateral infrahilar patchy opacities, concerning for pneumonia. [facility] Workstation ID: [id number] Echocardiogram complete (Results Pending) Laboratory and Additional Data Reviewed: Laboratory 11/29/23 3:06 PM Microbiology 11/29/23 3:06 PM Radiology 11/29/23 3:06 PM Medications 11/29/23 3:06 PM Lab Results Component Value Date WBC 10.83 11/29/2023 HGB 10.7 (L) 11/29/2023 HCT 32.8 (L) 11/29/2023 MCV 93.7 11/29/2023 PLT 130 (L) 11/29/2023 Lab Results Component Value Date GLUCOSE 234 (H) 11/29/2023 CALCIUM 8.4 11/29/2023 NA 137 11/29/2023 K 4.0 11/29/2023 CL 106 11/29/2023 BUN 34 (H) 11/29/2023 CREATININE 1.91 (H) 11/29/2023 Problem List Items Addressed This Visit None I discussed my management plans with Patient/and or Family member, and also discussed antibiotics therapy including side effects with Patient/and or Family member. Medical Decision Making: Moderate This note is created with the assistance of a speech-recognition program. While intending to generate a document that actually reflects the content of the visit, the document can still have some errors including those of syntax and sound a- like substitutions which may escape proofreading. In such instances, actual meaning can be extrapolated by contextual derivation. [facility] [place] Assessment and Plan Enoc Fernandes is a 77 y.o. male patient of Ryley Jeter MD with history of HTN, HLD, DM Type I, CKD, COPD, chronic hypoxemic respiratory failure who presented to [facility] with respiratory distress . Severe Sepsis Present on admission: yes Etiology: Pneumonia SIRS criteria: Respiratory rate greater than 20 or PACO2 less than 32mmHg, WBC greater than 12,000, less than 4,000, or greater than 10% bands Evidence of end organ damage: Lactic acid greater than 2.0 Initial lactic acid: 3.8, repeat within normal limits Current antibiotic regimen: Azithromycin/Ceftriaxone Culture data: blood, sputum, urine cultures; urine strep/legionella antigen; MRSA ngtd Acute on chronic hypoxemic respiratory failure Community Acquired Pneumonia Wears 2L per NC at baseline Currently on2L Azithromycin/Ceftriaxone Scheduled/PRN bronchodilators. Sputum culture ngtd Urine antigens: Strep/Legionella, negative Check stool for C Diff- negative NSTEMI Acute on chronic systolic CHF POA S/p heparin gtt Start aspirin, statin Continue metoprolol Cardiology following Pending echocardiogram 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.5 DKA resolved, off insulin drip Endocrinology following start patient on 7 units of Humalog 3 times daily D with meals and 40 units of Lantus at night And insulin sliding scale Essential Hypertension Dyslipidemia Continue amlodipine, metoprolol, ezetimibe CKD stage III present on admission Closely monitor renal function while on IV Lasix Hematuria Probably related to trauma from [place] Patient currently on heparin drip Discharge Planning Medically Stable for Discharge Date: TBD Patient requires continued hospitalization due to: Ongoing treatment for pneumonia and CHF Discharge Location: TBD Quality Measures DVT Prophylaxis:scd Henley Catheter: present Code Status full code Primary Contact Information Subjective Patient resting comfortably. Denies any pain No acute events overnight Objective BP (!) 148/71 Pulse 76 Temp 97.9 F (36.6 C) (Oral) Resp 16 Ht 5' 7 Wt 65.4 kg (144 lb 1.6 oz) SpO2 97% BMI 22.57 kg/m Physical Examination General Appearance: alert; well appearing; in no acute distress HEENT: Head- normocephalic; Eyes- EOMI, sclera anicteric; Throat- mucous membranes moist Cardiovascular: regular rate and rhythm; normal S1, S2; no murmurs, rubs, clicks or gallops; peripheral edema absent Respiratory: lungs clear to auscultation; without wheezes, rales or rhonchi; on nasal cannula Abdomen: soft, non-tender, non-distended Neurological: oriented x 3; normal speech; no focal findings or movement disorder noted Musculoskeletal: no significant deformity or tenderness to palpation Skin: normal coloration Psych: normal mood and affect Patient ID: Patient Name: Enoc Fernandes Admit Date: 11/27/2023 MR #: [id number] : 1945 Current location: [facility] Physicians: Ryley Jeter MD (Family); Britton Geiger CNP (Referring) Reason for consult: Type 1 diabetes Assessment/Plan: Dx: Type 1 diabetes, Currently taking as outpatient: Humalog insulin: 7 units at breakfast; 8 units at lunch; 8-9 units at supper Lantus insulin: 12-14 units at bedtime Humalog sliding scale Current Hemoglobin A1C= Lab Results Component Value Date HGBA1C 7.5 (H) 11/27/2023 HGBA1C 7.6 06/11/2023 HGBA1C 8.1 06/08/2022 NOTES: 11/27 BG and labs reviewed. Na 142, K 3.4, creat 2.35, eGFR 27, phos 2.3 Mg 2.1, HgbA1c 7.5%, TChol 130, TG 67, HDL 56, LDL 61.Patient remains NPO, on IV insulin. He has testes positive for Covid. 11/28 BG and labs reviewed. Na 142, K 4.3, creat 1.99, CO2-23, eGFR 34, Mg 25, Phos 3.6, WBC 14.22, Hgb 10.8, Hcct 33.6, Plt 151k. He is feeling better, breathing is better. Feels hungry. IV insulin discontinued last night, and he received 14 units Lantus. Discussed smoking cessation with him. 11/29 BG and labs reviewed. Na 137, potassium 4.0, creatinine 1.91, estimated GFR 35, calcium 8.4, BG 234, WBC 10.83, hemoglobin 10.7, hematocrit 32.8, platelet count 130,000. He is anxious to be discharged. He will need to have out patient ETT. Blood Glucoses: 11/27 523---544---132---145---173---85 11/28 167/209---286---182---222 11/29 266---174 11 Plan: 1. Rx changes: 11/27 Continue IV insulin until stable, then resume QID regimen. 11/28 Start 7 units Humalog TID ac and 14 U Lantus q HS. Continue to monitor and adjust. 11/29 Increase to 8/9/8 H, 16L Subjective: Brief HPI: Patient is a 77-year-old male with a history of type 1 diabetes mellitus for 29 years, CHF, hypertension, hyperlipidemia, emphysema who presented to [facility] emergency department with a complaint of shortness of breath. He was recently diagnosed with COVID infection on 10/19, and since then he has been experiencing intermittent chest pain and shortness of breath. On 11/27, he developed severe respiratory distress and chest discomfort with diaphoresis, and presented to the emergency department for evaluation. He was found to have bilateral pleural effusions and right lower lobe opacity, elevated troponin 2361, BG 523, T CO2 17. He was transferred to [facility] for further evaluation and treatment. At the time of this consultation he is on CPAP, and is awake and alert, but short of breath. He denies current chest pain. He has been started on IV insulin for management of his hyperglycemia. Patient has had diabetes for 29 years. Diagnosed in 1994. Patient is currently taking Lantus and Humalog. Patient has taken Insulin for 29 years. Currently the patient is receiving IV insulin.. Blood sugar levels since admission have been ranging from 453-523 mg/dL. Current monitoring regimen: home blood tests - 4 times daily Complications of diabetes include: Retinopathy: Negative Nephropathy: Positive Peripheral Neuropathy: Positive Autonomic Neuropathy: Negative 11/27 admission labs sodium 138, potassium 4.8, chloride 107, CO2 21, glucose 523, BUN 42, creatinine 2.24, AST 74, ALT 47, alk phos 97, total bilirubin 0.7, TSH 0.35, CRP less than 2.9, BNP 16,730, troponin 9973, calcium 8.9, WBC 23.69, hemoglobin 11.1, hematocrit 34.0, platelet count 220,000 Allergies: Allergies Allergen Reactions Bcoimba-Efn-Noh Reductase Inhibitors Muscle cramps Home Medications: Outpatient Medications Marked as Taking for the 11/27/23 encounter (Hospital Encounter): acetaminophen (Tylenol Arthritis Pain) 650 MG CR tablet, Take 1 (one) tablet (650 mg total) by mouth every 8 (eight) hours as needed for pain . amLODIPine (NORVASC) 10 MG tablet, Take 1 (one) tablet (10 mg total) by mouth daily . ezetimibe (Zetia) 10 mg tablet, Take 1 (one) tablet (10 mg total) by mouth daily . Current Medications: amLODIPine 10 mg Oral Daily aspirin 81 mg Oral Daily atorvastatin 20 mg Oral Nightly azithromycin 500 mg Intravenous Q24H cefTRIAXone (ROCEPHIN) IVPB 2,000 mg Intravenous Q24H ezetimibe 10 mg Oral Daily furosemide 20 mg Intravenous Q12H DIDI insulin glargine 14 Units Subcutaneous Nightly lispro insulin 0-15 Units Subcutaneous at bedtime insulin lispro 0-30 Units Subcutaneous QAM AC insulin lispro 0-30 Units Subcutaneous Daily before lunch insulin lispro 0-30 Units Subcutaneous Before dinner metoprolol succinate 25 mg Oral Daily sodium chloride (PF) 5 mL Intravenous Q8H DIDI acetaminophen, dextrose, heparin, ipratropium-albuteroL, [COMPLETED] Insert Indwelling Urethral Catheter AND Maintain and Assess Indwelling Urethral Catheter AND [COMPLETED] Remove and Discontinue Indwelling Urethral Catheter - Remove PER NURSING POLICY AND lidocaine HCL, nitroGLYCERIN, ondansetron OR ondansetron, Saline lock IV AND sodium chloride (PF) AND sodium chloride (PF) AND sodium chloride 0.9 % Review of Systems: Review of Systems Constitutional: Positive for appetite change and fatigue. Negative for unexpected weight change. Eyes: Negative for visual disturbance. Respiratory: Positive for cough, chest tightness and shortness of breath. Cardiovascular: Negative for chest pain and palpitations. Gastrointestinal: Negative for constipation, diarrhea, nausea and vomiting. Endocrine: Negative for polydipsia, polyphagia and polyuria. Genitourinary: Negative for frequency and urgency. Neurological: Positive for weakness. Negative for numbness. Psychiatric/Behavioral: Positive for sleep disturbance. History: Past Medical History: Diagnosis Date Arthritis CHF [...] disease Father Social History Tobacco Use Smoking status: Every Day Packs/day: 0.50 Years: 51.00 Additional pack years: 0.00 Total pack years: 25.50 Types: Cigarettes Smokeless tobacco: Never Substance Use Topics Alcohol use: No Alcohol/week: 0.0 standard drinks of alcohol Drug use: No The following portions of the patient's history were reviewed and updated as appropriate: allergies, current medications, past family history, past medical history, past social history, past surgical history and problem list. Objective: BP (!) 158/68 Pulse 82 Temp 98.8 F (37.1 C) (Oral) Resp 16 Ht 5' 7 Wt 65.4 kg (144 lb 1.6 oz) SpO2 96% BMI 22.57 kg/m Wt Readings from Last 3 Encounters: 11/29/23 65.4 kg (144 lb 1.6 oz) 10/21/23 67.4 kg (148 lb 11.2 oz) 10/08/23 72.1 kg (159 lb) Physical Exam: Physical Exam Vitals reviewed. Constitutional: Appearance: He is well-developed. HENT: Head: Normocephalic. Eyes: General: No scleral icterus. Conjunctiva/sclera: Conjunctivae normal. Cardiovascular: Rate and Rhythm: Normal rate and regular rhythm. Heart sounds: Normal heart sounds. Pulmonary: Effort: Pulmonary effort is normal. Breath sounds: Normal breath sounds. Comments: On CPAP Skin: General: Skin is warm. Findings: No erythema. Neurological: Mental Status: He is alert and oriented to person, place, and time. Laboratory Review: BP (!) 158/68 Pulse 82 Temp 98.8 F (37.1 C) (Oral) Resp 16 Ht 5' 7 Wt 65.4 kg (144 lb 1.6 oz) SpO2 96% BMI 22.57 kg/m Lab Results Component Value Date HGBA1C 7.5 (H) 11/27/2023 Glucose (mg/dL) Date Value 11/29/2023 234 (H) 11/27/2023 544 (CH) Creatinine (mg/dL) Date Value 11/29/2023 1.91 (H) 06/11/2023 1.85 Lab Results Component Value Date CHOL 130 11/27/2023 TRIG 67 11/27/2023 HDL 56 11/27/2023 LDLCALC 61 11/27/2023 Lab Results Component Value Date TSH 0.35 11/27/2023 No results found for: FREET4 Lab Results Component Value Date WBC 10.83 11/29/2023 HGB 10.7 (L) 11/29/2023 HCT 32.8 (L) 11/29/2023 MCV 93.7 11/29/2023 PLT 130 (L) 11/29/2023 This SmartLink has not been configured with any valid records. This SmartLink has not been configured with any valid records. Laboratory and Additional Data Reviewed: Laboratory 11/29/23 8:15 AM Radiology 11/29/23 8:15 AM Cardiology 11/29/23 8:15 AM Medications 11/29/23 8:15 AM Transcriptions 11/29/23 8:15 AM Thank you for this consultation, we will continue to follow this patient with you. Mary Yan MD General Cardiology Inpatient Follow-up Heart & Vascular [facility] 11/28/2023 Iraida Alvarado, [facility] Patient: Enoc E Fernandes Date of : 1945 (77 y.o.) Referring Provider: Ger Aguilera DO PCP: Ryley Jeter MD Cardiology sign-off note - Maintain potassium level between 4.0 and 4.8 and magnesium >2. - Reassess need for diuresis in am. - Heparin IV for 48 hours from peak troponin (will be 48 hours at 3 am on 11/29/2023) - ASA 81 mg every day. - Toprol XL 25 mg every day. - Lipitor 20 mg daily - Zetia 10 mg daily Would restart his PASCALE inhibitor when MADONNA improves or okayed by renal - In the interim if he needs antihypertensive Isordil or hydralazine would be drugs of choice given LV dysfunction - Transitional care in 5 weeks. - Outpatient SPECT in 6 weeks. Assessment/Plan: NSTEMI, type II - Type II NSTEMI due to pneumonia, sepsis, lactic acidosis, MADONNA hyperglycemia, respiratory distress. Delta D is negative - Troponin 9973, 9973 in the setting of white count 20,000 and elevated lactic acid. - EKG showed SR suggest previous anterior [place]Y, minor ST depression laterally similar to 10/11/2023 - Telemetry reviewed and shows sinus tachycardia - He reports no symptoms to suggest ischemic heart disease. - Chest x-ray w/ significant infiltrates particular on the right side - Would not proceed with an invasive evaluation. Treat hypoxia, infection, hyperglycemia - Maintain potassium level between 4.0 and 4.8 and magnesium >2. Maintain nl calcium. - Potassium today is 4.3 and magnesium 2.5 - Strict I&O - Negative 1835. - Lasix 20 mg IV BID. - Heparin IV for 48 hours from peak troponin (will be 48 hours at 3 am on 11/29/2023) - ASA 81 mg every day. - Toprol XL 25 mg every day. - Would restart his PASCALE inhibitor when MADONNA improves or okayed by renal - In the interim if he needs antihypertensive Isordil or hydralazine would be drugs of choice given LV dysfunction - Transitional care in 5 weeks. - Outpatient SPECT in 6 weeks. LV dysfunction - Known systolic dysfunction EF 35% on his echo in October when hospitalized with COVID which was global dysfunction - Outpatient plan for nuclear stress to assess for ischemia, that did not get completed. Report of chest x-ray in ER pulmonary vascular congestion small bilateral pleural edemas right lower lobe infiltrates nodular opacity at left lung base - Repeat echo pending Pneumonia - Respiratory rate greater than 20. - WBC 20,000. Lactic acid greater than 2.0 - COVID confirmed. - Patient is on Rocephin and Zithromax IV - FiO2 is 30%. Hyperlipidemia - Lipitor 20 mg daily - Zetia 10 mg daily History of Present Illness: Pt is a 77 yo M w/ a h/o HTN, HPL, DM,CKD, smoker, emphysema, chronic hypoxemia and CHF who present to the ED on 11/27/2023 w/ respiratory distress. Cardiac Echo: pending. Subjective: Patient is orient x 3. Telemetry: SR Allergies: Klxgloa-sdw-dnu reductase inhibitors Review of Systems: The following system(s) were reviewed and negative. Pertinent positive and negative findings are noted in the HPI. [x] Const [x] Eyes [x] ENT [x] Resp [] CV [x] GI [x] [x] Neuro [x] Musc [x] Skin [x] Psych [x] Endo [x] Allergy [x] Heme/Lymph Vital Signs: BP 129/62 Pulse 84 Temp 97.8 F (36.6 C) (Oral) Resp 16 Ht 5' 7 Wt 70 kg (154 lb 5.2 oz) SpO2 95% BMI 24.17 kg/m Due to the nature of this patient's Covid-19 isolation status, this note was prepared without bedside physical exam, if possible direct patient communication occurred via electronic or by telephone when possible examination highlights were provided by bedside healthcare provider wearing personal protective equipment and/or medical record review. Objective data, vital signs, lab results, imaging studies, etc. were reviewed in detail. Lab Results Component Value Date CREATININE 1.99 (H) 11/28/2023 BUN 33 (H) 11/28/2023 NA 142 11/28/2023 K 4.3 11/28/2023 CL 110 (H) 11/28/2023 BICARB 23 11/28/2023 Lab Results Component Value Date WBC 14.22 (H) 11/28/2023 HGB 10.8 (L) 11/28/2023 HCT 33.6 (L) 11/28/2023 MCV 94.6 11/28/2023 EXTMCV 91 06/08/2022 PLT 151 11/28/2023 RBC 3.55 (L) 11/28/2023 Lab Results Component Value Date TROPONINI 9,349 (CH) 11/27/2023 Iraida Alvarado CNP Spiritual Care Progress Note Completed by: Kalani Claros Person(s) Present During this Visit: Patient Time Spent in Direct Patient Care: 15 Narrative: This glass cut off tender visited the pt., Enoc, while rounding. Introduced self and role. Enoc shared that he hoped that he would be able to go home soon and was frustrated that he was not able to yet. He has been very appreciative of nursing staff. Enoc shared that he and his have been for 60 years and he is very proud of his children and grandchildren. 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 This glass cut off tender helped the pt explore their feelings about their hospitalization and identify sources of support. This glass cut off tender provided information about Pastoral Care services and how to contact a glass cut off tender. Pastoral Care team will remain available to support patient and family PRN. 11/28/23 1116 Visit Background Visit With Patient Visit By Staff Social Media Content Specialist Visit Progression Introduction Visit Requested By Social Media Content Specialist Initiated Visit Source Social Media Content Specialist Initiated Visit Type Inpatient;Rounding Visit Circumstances and Events Routine Visit Visit Length (minutes) 15 Patient's Response to Pastoral Care Appeared to be well-engaged;Expressed Gratitude for Visit Visit Planning PRN;Pt aware to contact Social Media Content Specialist as needed Spiritual Assessment Assessed during this visit Church Assessment Not assessed during this visit Family assessment provided? Unable to asess during this visit Patient Spiritual Needs Assessment Sources of Connection Spouse;Other (see comment) (Children and grandchildren) Belief Practices Not Discussed Image of the Divine Not Discussed Spiritual Issues / Opportunities Seek Healing/Wholeness Expressed / Stated Feelings Impatient;Healing Coping Mechanisms Family Support Spiritual Diagnosis Spiritual Support and Connection Facilitated Interventions Active Listening;Explained Role of the Social Media Content Specialist;Explored thoughts/feelings associated with current hospitalization;Relationships Spiritual/Emotional Outcomes Appreciative;Gratitude Spiritual Plan of Care Continue Healing Process;Receive Spiritual Support Signature: Kalani Claros MDiv Staff Social Media Content Specialist [facility] 24hr On-Call /Adriana On-Call Social Media Content Specialist She/Her/Hers [facility] [place] Assessment and Plan Enoc Fernandes is a 77 y.o. male patient of Ryley Jeter MD with history of HTN, HLD, DM Type I, CKD, COPD, chronic hypoxemic respiratory failure who presented to [facility] with respiratory distress . Severe Sepsis Present on admission: yes Etiology: Pneumonia SIRS criteria: Respiratory rate greater than 20 or PACO2 less than 32mmHg, WBC greater than 12,000, less than 4,000, or greater than 10% bands Evidence of end organ damage: Lactic acid greater than 2.0 Initial lactic acid: 3.8, repeat within normal limits Current antibiotic regimen: Azithromycin/Ceftriaxone Culture data: blood, sputum, urine cultures; urine strep/legionella antigen; MRSA ngtd Acute on chronic hypoxemic respiratory failure Community Acquired Pneumonia Wears 2L per NC at baseline Currently on2L Azithromycin/Ceftriaxone Scheduled/PRN bronchodilators. Sputum culture ngtd Urine antigens: Strep/Legionella, negative Check stool for C Diff- negative NSTEMI Congestive heart failure Continue heparin gtt per arterial nomogram Start aspirin, statin Continue metoprolol Cardiology following Echocardiogram in AM. 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.5 DKA resolved, off insulin drip Endocrinology following start patient on 7 units of Humalog 3 times daily D with meals and 40 units of Lantus at night And insulin sliding scale Essential Hypertension Dyslipidemia Continue amlodipine, metoprolol, ezetimibe Discharge Planning Medically Stable for Discharge Date: TBD Patient requires continued hospitalization due to: Ongoing treatment for pneumonia and CHF Discharge Location: TBD Quality Measures DVT Prophylaxis: heparin subcutaneous Henley Catheter: present Code Status full code Primary Contact Information Subjective Patient doing well this am, currently on 2 L o2 Denies any chest pain or SOB Transfer to stepdown unit Objective BP 129/62 Pulse 84 Temp 97.8 F (36.6 C) (Oral) Resp 16 Ht 5' 7 Wt 70 kg (154 lb 5.2 oz) SpO2 95% BMI 24.17 kg/m Physical Examination General Appearance: alert; well appearing; in no acute distress HEENT: Head- normocephalic; Eyes- EOMI, sclera anicteric; Throat- mucous membranes moist Cardiovascular: regular rate and rhythm; normal S1, S2; no murmurs, rubs, clicks or gallops; peripheral edema absent Respiratory: lungs clear to auscultation; without wheezes, rales or rhonchi; on nasal cannula Abdomen: soft, non-tender, non-distended Neurological: oriented x 3; normal speech; no focal findings or movement disorder noted Musculoskeletal: no significant deformity or tenderness to palpation Skin: normal coloration Psych: normal mood and affect Patient Name: Enoc Fernandes Admit Date: [id number] MR #: [id number] : 1945 Physicians: Ryley Jeter MD (Family); Ger Aguilera DO (Referring) Assessment: Patient with 1. Respiratory failure 2. Suspicion for pneumonia 3. Possible congestive heart failure 4. Non-ST elevation WY. 5. History of COVID-19 infection. Plan: Continue patient on current therapy Continue patient on IV azithromycin Continue on ceftriaxone From [facility] 5 weeks ago patient was status post IV ceftriaxone and azithromycin treatment. Sputum culture: Showing gram-positive cocci Follow-up labs Follow-up ESR, C-reactive protein, D-dimer level, ferritin level, LDH. Urine for strep antigen and Legionella antigen are negative Patient on IV diuretics with furosemide. Follow-up labs For review chest x-ray, with infrahilar patchy opacities bilaterally. Get CT scan of the chest the patient is stable. Previous x-ray at had shown congestive changes and edema on 11/26/2023. Patient on BiPAP Aspiration precaution recommended Patient was status post 3 shots of COVID-19 immunization in the past. I discussed with spouse on management plan Will continue to follow with you. Subjective: Patient was seen in a stable condition about to move upstairs to a better room. Patient stated that he is doing well today and has no fever or chills. Saturating on 2 L of oxygen at 97%. Exam: PACU Vitals 11/30/23 0839 BP: (!) 173/82 Pulse: 81 Resp: Temp: 97.7 F (36.5 C) SpO2: 97% Allergies: Jkatnkv-gwh-ciz reductase inhibitors Medications Reviewed. Current Facility-Administered Medications: acetaminophen (TYLENOL) tablet 650 mg, 650 mg, Oral, Q4H PRN, Norma Geiger CNP amLODIPine (NORVASC) tablet 10 mg, 10 mg, Oral, Daily, Norma Geiger CNP, 10 mg at 11/30/23 0843 aspirin EC tablet 81 mg, 81 mg, Oral, Daily, Norma Geiger CNP, 81 mg at 11/30/23 0844 azithromycin (ZITHROMAX) 500 mg in sodium chloride (NS) 0.9% 250 mL (vialmate), 500 mg, Intravenous, Q24H, Norma Geiger CNP, Stopped at 11/30/23 0505 cefTRIAXone (ROCEPHIN) IVPB 2 g (premix), 2,000 mg, Intravenous, Q24H, Norma Geiger CNP, Stopped at 11/30/23 0539 dextrose (D10W) 10% bolus 125 mL, 125 mL, Intravenous, PRN, Lisa Faria PA-C ezetimibe (ZETIA) tablet 10 mg, 10 mg, Oral, Daily, Norma Geiger CNP, 10 mg at 11/30/23 0843 furosemide (LASIX) injection 20 mg, 20 mg, Intravenous, Q12H Jenny TOLBERT Elaine Marie, CNP, 20 mg at 11/30/23 0549 insulin glargine (LANTUS) injection 14 Units, 14 Units, Subcutaneous, Nightly, Mary Yan MD insulin lispro (AdmeLOG,HumaLOG) injection 0-15 Units, 0-15 Units, Subcutaneous, at bedtime, Mary Yan MD insulin lispro (AdmeLOG,HumaLOG) injection 0-30 Units, 0-30 Units, Subcutaneous, Daily before lunch, Mary Yan MD, 9 Units at 11/29/23 1200 insulin lispro (AdmeLOG,HumaLOG) injection 0-30 Units, 0-30 Units, Subcutaneous, Before dinner, Mary Yan MD, 10 Units at 11/29/23 1650 insulin lispro (AdmeLOG,HumaLOG) injection 0-30 Units, 0-30 Units, Subcutaneous, QAM AC, Mary Yan MD, 13 Units at 11/30/23 0843 ipratropium-albuteroL (DUO-NEB) 0.5-2.5 mg/3 ml nebulizer solution 3 mL, 3 mL, Inhalation, Q2H PRN, Norma Geiger CNP [COMPLETED] Insert Indwelling Urethral Catheter, , , Once AND Maintain and Assess Indwelling Urethral Catheter, , , Q12H AND [COMPLETED] Remove and Discontinue Indwelling Urethral Catheter - Remove PER NURSING POLICY , , , Once AND lidocaine HCL (UROJET/GLYDO) 2 % applicator 1 Application, 1 Application, Intra-urethral, PRN, Norma Geiger CNP metoprolol succinate (TOPROL-XL) 24 hr tablet 25 mg, 25 mg, Oral, Daily, Norma Geiger CNP, 25 mg at 11/30/23 0843 nitroGLYCERIN (NITROSTAT) SL tablet 0.4 mg, 0.4 mg, Sublingual, Q5 Min PRN, Norma Geiger CNP ondansetron (ZOFRAN-ODT) disintegrating tablet 4 mg, 4 mg, Oral, Q6H PRN OR ondansetron (ZOFRAN) injection 4 mg, 4 mg, Intravenous, Q6H PRN, Norma Geiger CNP Saline lock IV, , , Continuous AND sodium chloride (PF) (NS) flush 5 mL, 5 mL, Intravenous, PRN AND sodium chloride (PF) (NS) flush 5 mL, 5 mL, Intravenous, Q8H DIDI, 5 mL at 11/30/23 0551 AND sodium chloride 0.9% (NS), 0-150 mL/hr, Intravenous, PRN, Norma Geiger CNP Review of Systems: Constitutional: Negative for fatigue, change in appetite, chills and fever. HENT: Negative for congestion and rhinorrhea. Negative for ear pain, sore throat. Eyes: Negative for pain and redness. Respiratory: Negative for cough and shortness of breath. Cardiovascular: Negative for chest pain and palpitations. Gastrointestinal: Negative for abdominal pain, constipation, diarrhea, nausea and vomiting. Genitourinary: Negative for difficulty urinating, dysuria, frequency, hesitancy, flank pain Musculoskeletal: Negative for back pain, neck pain and neck stiffness. Skin: Negative for color change and rash. Neurological: Negative for lightheadedness, dizziness, syncope, weakness and headaches. Psychiatric/Behavioral: Negative for confusion, hallucinations and suicidal ideas. Positives and pertinent negatives as per HPI. PMH/PSH/SH/FH reviewed, no change Chart Reviewed. Exam Findings: ENT: No oral candidiasis Chest: Lungs clear bilaterally, no wheezing, or rales. CVS: Normal S1 & S2+, Normal Rhythm Abdomen: Normal symmetry, Soft/non-tender. Benign, BS+ Extremities: No Deformities or Edema Skin: Intact & No Rashes, or excoriations Musculoskeletal: No joint swelling, non tender EDGE BANDING OFF BEARER: Awake, and Ox3 Wound: No Henley Catheter: None IV Access: yes I reviewed Medications. I reviewed Labs. CT Chest High Resolution without contrast with complete scan Final Result 1. Mild ground-glass opacities in the right middle and left upper lobes, likely infectious or inflammatory. 2. Mild emphysema with bilateral lower lobe consolidative fibrosis. 3. Small right and trace left pleural effusions. 4. Right upper lobe perifissural 5 mm solid nodule. Consider follow-up CT of the chest in 1 year to confirm stability. 5. Severe coronary artery calcifications. Workstation ID: [id number] XR Chest 1 View Final Result Bilateral infrahilar patchy opacities, concerning for pneumonia. [email or web address] Workstation ID: [id number] Echocardiogram complete (Results Pending) Laboratory and Additional Data Reviewed: Laboratory 11/30/23 8:52 AM Microbiology 11/30/23 8:52 AM Radiology 11/30/23 8:52 AM Medications 11/30/23 8:52 AM Lab Results Component Value Date WBC 8.89 11/30/2023 HGB 11.8 (L) 11/30/2023 HCT 35.9 (L) 11/30/2023 MCV 92.8 11/30/2023 PLT 120 (L) 11/30/2023 Lab Results Component Value Date GLUCOSE 322 (H) 11/30/2023 CALCIUM 8.6 11/30/2023 NA 138 11/30/2023 K 3.8 11/30/2023 CL 104 11/30/2023 BUN 30 (H) 11/30/2023 CREATININE 1.77 (H) 11/30/2023 Problem List Items Addressed This Visit None I discussed my management plans with Patient/and or Family member, and also discussed antibiotics therapy including side effects with Patient/and or Family member. Medical Decision Making: Moderate This note is created with the assistance of a speech-recognition program. While intending to generate a document that actually reflects the content of the visit, the document can still have some errors including those of syntax and sound a- like substitutions which may escape proofreading. In such instances, actual meaning can be extrapolated by contextual derivation. CRITICAL CARE PROGRESS 11/28/2023 Patient: Enoc Fernandes Date of : 1945 Site: [facility] Provider: Prashant Cesar MD ASSESSMENT/PLAN: Enoc Fernandes 77 y.o. male transferred last night for resp distress, NSTEMI, hypergllycemia from [facility] Three weeks ago testing positive for Covid and then diagnosed with pneumonia. He has been treated as an outpatient with oral antibiotics. He has been experiencing intermittent midsternal chest pain for the past 3 weeks On arrival to [facility], he was placed on NIPPV with improvement in respiratory effort. Routine labs were drawn which showed a WBC 20, bicarb 17, creatinine 1.9, troponin 2361. CXR showed bilateral pleural effusions and right lower lobe opacity. He was started on a heparin infusion, Lasix 80, insulin gtt , abx, pressors/steroids/ Today, pt is doing well on NC and is off BiPAP after diuresis. He wears BiPAP for sleeping.. Insulin drip stopped WBC falling to 14 Creat stabalizing 1.99 Respiratory: Pattern of CHF Small Bilat effusions RLL opacity Potential nodule to be worked up later Azithromycin/Ceftriaxone Cardiovascular: Troponin 2361 BNP 16,730 Prior [place] NSTEMI Cardiology consulted Heparin gtt Neuro/Muscular: Alert Renal: Creat 1.7- now 1.99 after diuresis Avoid nephrotoxins Careful diureses GI/Nutrition: NPO for now Endocrine: Hyperglycemia AG only 13 7.35 BHOB 1.9 Suspect he can be released from isulin drip soon Heme/Onc: No issue ID: Cultures pending Prophylaxis: Heparin drip PPI Other: 47 minutes of critical time provided thus far today not including procedures. SUBJECTIVE: History Since Last Visit: Pt in ICU on BiPAP. Diuresing well. On heparin drip. Pending Lab and Radiology Results Order Current Status Hemoglobin A1c In process Blood Culture #1 Preliminary result Blood Culture #2 Preliminary result Sputum Aerobic Culture Preliminary result Interpretation of Testing: I personally reviewed the EKG and Chest X-ray and agree with the interpretation(s) with the following comments. Review of Systems: All other systems reviewed and negative other than HPI OBJECTIVE: Physical Examination: BP (!) 120/43 Pulse (!) 101 Temp 97.8 F (36.6 C) (Oral) Resp (!) 22 Ht 5' 7 Wt 70 kg (154 lb 5.2 oz) SpO2 93% BMI 24.17 kg/m Temp: [97.6 F (36.4 C)-99.7 F (37.6 C)] 97.8 F (36.6 C) Heart Rate: [72-101] 101 Resp: [14-23] 22 BP: (80-151)/(43-113) 120/43 FiO2 (%): 30 SpO2 Readings from Last 1 Encounters: 11/28/23 93% Intake/Output Summary (Last 24 hours) at 11/28/2023 0842 Last data filed at 11/28/2023 0800 Gross per 24 hour Intake 1880.78 ml Output 3050 ml Net -1169.22 ml Vital Signs Reviewed. Gen: Alert and oriented x 3, HEENT: Head: Normocephalic, no lesions, without obvious abnormality. Pharynx: Dental Hygiene adequate. Normal buccal mucosa. Normal pharynx. Neck: nontender, full range of motion, no mass, no focal lymphadenopathy Cardio: regular rate and rhythm, no murmur, brisk capillary refill Resp: clear to auscultation bilaterally, crackles at base Abd: soft, nontender, nondistended, no hepatosplenomegaly, no mass, normal bowel sounds MSK: Moves all four extremities spontaneously. Neuro: Grossly normal without focal findings Skin: no rashes, no jaundice MEDICATIONS: Current Facility-Administered Medications Medication Dose Route Frequency Provider Last Rate Last Admin acetaminophen (TYLENOL) tablet 650 mg 650 mg Oral Q4H PRN Norma Geiger CNP amLODIPine (NORVASC) tablet 10 mg 10 mg Oral Daily Norma Geiger CNP 10 mg at 11/28/23 0824 aspirin EC tablet 81 mg 81 mg Oral Daily Norma Geiger CNP 81 mg at 11/28/23 0824 atorvastatin (LIPITOR) tablet 20 mg 20 mg Oral Nightly Norma Geiger CNP 20 mg at 11/27/232020 azithromycin (ZITHROMAX) 500 mg in sodium chloride (NS) 0.9% 250 mL (vialmate) 500 mg Intravenous Q24H Norma Geiger CNP 250 mL/hr at 11/28/23 0700 Rate Verify at 11/28/23 0700 cefTRIAXone (ROCEPHIN) IVPB 2 g (premix) 2,000 mg Intravenous Q24H Norma Geiger CNP Stopped at 11/28/23 0553 dextrose (D10W) 10% bolus 125 mL 125 mL Intravenous PRN Lisa Faria PA-C ezetimibe (ZETIA) tablet 10 mg 10 mg Oral Daily Norma Geiger CNP 10 mg at 11/28/23 0824 furosemide (LASIX) injection 40 mg 40 mg Intravenous Q12H DIDI Norma Geiger CNP 40 mg at 11/28/23 0523 heparin (porcine) 25,000 unit/250 mL(100 unit/mL) in D5W infusion 0-70 Units/kg/hr Intravenous Continuous Norma Geiger CNP 9.9 mL/hr at 11/28/23 0700 14 Units/kg/hr at 11/28/23 0700 heparin bolus from bag 0-5,000 Units 0-5,000 Units Intravenous Continuous PRN Norma Geiger CNP 2,100 Units at 11/27/23 0513 insulin glargine (LANTUS) injection 14 Units 14 Units Subcutaneous Nightly Mary Yan MD insulin lispro (AdmeLOG,HumaLOG) injection 0-15 Units 0-15 Units Subcutaneous at bedtime Mary Yan MD insulin lispro (AdmeLOG,HumaLOG) injection 0-30 Units 0-30 Units Subcutaneous QAM AC Mary Yan MD 9 Units at 11/28/23 0824 insulin lispro (AdmeLOG,HumaLOG) injection 0-30 Units 0-30 Units Subcutaneous Daily before lunch Mary Yan MD insulin lispro (AdmeLOG,HumaLOG) injection 0-30 Units 0-30 Units Subcutaneous Before dinner Mary Yan MD ipratropium-albuteroL (DUO-NEB) 0.5-2.5 mg/3 ml nebulizer solution 3 mL 3 mL Inhalation Q4H DIDI Norma Geiger CNP 3 mL at 11/28/23 0727 ipratropium-albuteroL (DUO-NEB) 0.5-2.5 mg/3 ml nebulizer solution 3 mL 3 mL Inhalation Q2H PRN Norma Geiger CNP lidocaine HCL (UROJET/GLYDO) 2 % applicator 1 Application 1 Application Intra-urethral PRN Norma Geiger CNP metoprolol succinate (TOPROL-XL) 24 hr tablet 25 mg 25 mg Oral Daily Norma Geiger CNP 25 mg at 11/28/23 0824 nitroGLYCERIN (NITROSTAT) SL tablet 0.4 mg 0.4 mg Sublingual Q5 Min PRN Norma Geiger CNP ondansetron (ZOFRAN-ODT) disintegrating tablet 4 mg 4 mg Oral Q6H PRN Norma Geiger CNP Or ondansetron (ZOFRAN) injection 4 mg 4 mg Intravenous Q6H PRN Norma Geiger CNP perflutren lipid microspheres (DEFINITY) 0.143 mg/mL solution 0-10 mL of mixture 0-10 mL of mixture Intravenous Once in imaging Norma Geiger CNP sodium chloride (PF) (NS) flush 5 mL 5 mL Intravenous PRN Norma Geiger CNP And sodium chloride (PF) (NS) flush 5 mL 5 mL Intravenous Q8H DIDI Norma Geiger CNP 5 mL at 11/28/23 0523 And sodium chloride 0.9% (NS) 0-150 mL/hr Intravenous PRN Norma Geiger CNP [x] Medications reviewed. [x] Labs reviewed. Pertinent findings noted: [x] Radiology reviewed. Pertinent findings noted: [] Pathology reviewed. Pertinent findings noted: Family Update/ Code Status: Full code CTT 33 min Laboratory and Additional Data Reviewed: Reviewed 11/28/23 8:42 AM: Laboratory and Microbiology Patient ID: Patient Name: Enoc Fernandes Admit Date: 11/27/2023 MR #: [id number] : 1945 Current location: [facility] Physicians: Ryley Jeter MD (Family); Britton Geiger CNP (Referring) Reason for consult: Type 1 diabetes Assessment/Plan: Dx: Type 1 diabetes, Currently taking as outpatient: Humalog insulin: 7 units at breakfast; 8 units at lunch; 8-9 units at supper Lantus insulin: 12-14 units at bedtime Humalog sliding scale Current Hemoglobin A1C= Lab Results Component Value Date HGBA1C 7.5 (H) 11/27/2023 HGBA1C 7.6 06/11/2023 HGBA1C 8.1 06/08/2022 NOTES: 11/27 BG and labs reviewed. Na 142, K 3.4, creat 2.35, eGFR 27, phos 2.3 Mg 2.1, HgbA1c 7.5%, TChol 130, TG 67, HDL 56, LDL 61.Patient remains NPO, on IV insulin. He has testes positive for Covid. 11/28 BG and labs reviewed. Na 142, K 4.3, creat 1.99, CO2-23, eGFR 34, Mg 25, Phos 3.6, WBC 14.22, Hgb 10.8, Hcct 33.6, Plt 151k. He is feeling better, breathing is better. Feels hungry. IV insulin discontinued last night, and he received 14 units Lantus. Discussed smoking cessation with him. Blood Glucoses: 11/27 523---544---132---145---173---85 11/28 167/209---286 Plan: 1. Rx changes: 11/27 Continue IV insulin until stable, then resume QID regimen. 11/28 Start 7 units Humalog TID ac and 14 U Lantus q HS. Continue to monitor and adjust. Subjective: Brief HPI: Patient is a 77-year-old male with a history of type 1 diabetes mellitus for 29 years, CHF, hypertension, hyperlipidemia, emphysema who presented to [facility] emergency department with a complaint of shortness of breath. He was recently diagnosed with COVID infection on 10/19, and since then he has been experiencing intermittent chest pain and shortness of breath. On 11/27, he developed severe respiratory distress and chest discomfort with diaphoresis, and presented to the emergency department for evaluation. He was found to have bilateral pleural effusions and right lower lobe opacity, elevated troponin 2361, BG 523, T CO2 17. He was transferred to [facility] for further evaluation and treatment. At the time of this consultation he is on CPAP, and is awake and alert, but short of breath. He denies current chest pain. He has been started on IV insulin for management of his hyperglycemia. Patient has had diabetes for 29 years. Diagnosed in 1994. Patient is currently taking Lantus and Humalog. Patient has taken Insulin for 29 years. Currently the patient is receiving IV insulin.. Blood sugar levels since admission have been ranging from 453-523 mg/dL. Current monitoring regimen: home blood tests - 4 times daily Complications of diabetes include: Retinopathy: Negative Nephropathy: Positive Peripheral Neuropathy: Positive Autonomic Neuropathy: Negative 11/27 admission labs sodium 138, potassium 4.8, chloride 107, CO2 21, glucose 523, BUN 42, creatinine 2.24, AST 74, ALT 47, alk phos 97, total bilirubin 0.7, TSH 0.35, CRP less than 2.9, BNP 16,730, troponin 9973, calcium 8.9, WBC 23.69, hemoglobin 11.1, hematocrit 34.0, platelet count 220,000 Allergies: Allergies Allergen Reactions Sjkhjar-Ejp-Leq Reductase Inhibitors Muscle cramps Home Medications: Outpatient Medications Marked as Taking for the 11/27/23 encounter (Hospital Encounter): acetaminophen (Tylenol Arthritis Pain) 650 MG CR tablet, Take 1 (one) tablet (650 mg total) by mouth every 8 (eight) hours as needed for pain . amLODIPine (NORVASC) 10 MG tablet, Take 1 (one) tablet (10 mg total) by mouth daily . ezetimibe (Zetia) 10 mg tablet, Take 1 (one) tablet (10 mg total) by mouth daily . Current Medications: amLODIPine 10 mg Oral Daily aspirin 81 mg Oral Daily atorvastatin 20 mg Oral Nightly azithromycin 500 mg Intravenous Q24H cefTRIAXone (ROCEPHIN) IVPB 2,000 mg Intravenous Q24H ezetimibe 10 mg Oral Daily furosemide 20 mg Intravenous Q12H DIDI insulin glargine 14 Units Subcutaneous Nightly lispro insulin 0-15 Units Subcutaneous at bedtime insulin lispro 0-30 Units Subcutaneous QAM AC insulin lispro 0-30 Units Subcutaneous Daily before lunch insulin lispro 0-30 Units Subcutaneous Before dinner ipratropium-albuteroL 3 mL Inhalation Q4H DIDI metoprolol succinate 25 mg Oral Daily sodium chloride (PF) 5 mL Intravenous Q8H DIDI acetaminophen, dextrose, heparin, ipratropium-albuteroL, [COMPLETED] Insert Indwelling Urethral Catheter AND Maintain and Assess Indwelling Urethral Catheter AND [COMPLETED] Remove and Discontinue Indwelling Urethral Catheter - Remove PER NURSING POLICY AND lidocaine HCL, nitroGLYCERIN, ondansetron OR ondansetron, perflutren lipid microspheres, Saline lock IV AND sodium chloride (PF) AND sodium chloride (PF) AND sodium chloride 0.9 % Review of Systems: Review of Systems Constitutional: Positive for appetite change and fatigue. Negative for unexpected weight change. Eyes: Negative for visual disturbance. Respiratory: Positive for cough, chest tightness and shortness of breath. Cardiovascular: Negative for chest pain and palpitations. Gastrointestinal: Negative for constipation, diarrhea, nausea and vomiting. Endocrine: Negative for polydipsia, polyphagia and polyuria. Genitourinary: Negative for frequency and urgency. Neurological: Positive for weakness. Negative for numbness. Psychiatric/Behavioral: Positive for sleep disturbance. History: Past Medical History: Diagnosis Date Arthritis CHF [...] disease Father Social History Tobacco Use Smoking status: Every Day Packs/day: 0.50 Years: 51.00 Additional pack years: 0.00 Total pack years: 25.50 Types: Cigarettes Smokeless tobacco: Never Substance Use Topics Alcohol use: No Alcohol/week: 0.0 standard drinks of alcohol Drug use: No The following portions of the patient's history were reviewed and updated as appropriate: allergies, current medications, past family history, past medical history, past social history, past surgical history and problem list. Objective: BP 112/60 Pulse 89 Temp 97.8 F (36.6 C) (Oral) Resp 15 Ht 5' 7 Wt 70 kg (154 lb 5.2 oz) SpO2 93% BMI 24.17 kg/m Wt Readings from Last 3 Encounters: 11/28/23 70 kg (154 lb 5.2 oz) 10/21/23 67.4 kg (148 lb 11.2 oz) 10/08/23 72.1 kg (159 lb) Physical Exam: Physical Exam Vitals reviewed. Constitutional: Appearance: He is well-developed. HENT: Head: Normocephalic. Eyes: General: No scleral icterus. Conjunctiva/sclera: Conjunctivae normal. Cardiovascular: Rate and Rhythm: Normal rate and regular rhythm. Heart sounds: Normal heart sounds. Pulmonary: Effort: Respiratory distress present. Breath sounds: Normal breath sounds. Comments: On CPAP Skin: General: Skin is warm. Findings: No erythema. Neurological: Mental Status: He is alert and oriented to person, place, and time. Laboratory Review: BP 112/60 Pulse 89 Temp 97.8 F (36.6 C) (Oral) Resp 15 Ht 5' 7 Wt 70 kg (154 lb 5.2 oz) SpO2 93% BMI 24.17 kg/m Lab Results Component Value Date HGBA1C 7.5 (H) 11/27/2023 Glucose (mg/dL) Date Value 11/28/2023 183 (H) 11/27/2023 544 (CH) Creatinine (mg/dL) Date Value 11/28/2023 1.99 (H) 06/11/2023 1.85 Lab Results Component Value Date CHOL 130 11/27/2023 TRIG 67 11/27/2023 HDL 56 11/27/2023 LDLCALC 61 11/27/2023 Lab Results Component Value Date TSH 0.35 11/27/2023 No results found for: FREET4 Lab Results Component Value Date WBC 14.22 (H) 11/28/2023 HGB 10.8 (L) 11/28/2023 HCT 33.6 (L) 11/28/2023 MCV 94.6 11/28/2023 PLT 151 11/28/2023 This SmartLink has not been configured with any valid records. This SmartLink has not been configured with any valid records. Laboratory and Additional Data Reviewed: Laboratory 11/28/23 12:29 PM Radiology 11/28/23 12:29 PM Cardiology 11/28/23 12:29 PM Medications 11/28/23 12:29 PM Transcriptions 11/28/23 12:29 PM Thank you for this consultation, we will continue to follow this patient with you. Mary Yan MD CRITICAL CARE PROGRESS 11/27/2023 Patient: Enoc Fernandes Date of : 1945 Site: [facility] Provider: Prashant Cesar MD ASSESSMENT/PLAN: Enoc Fernandes 77 y.o. male transferred last night for resp distress, NSTEMI, hypergllycemia from [facility] Three weeks ago testing positive for Covid and then diagnosed with pneumonia. He has been treated as an outpatient with oral antibiotics. He has been experiencing intermittent midsternal chest pain for the past 3 weeks On arrival to [facility], he was placed on NIPPV with improvement in respiratory effort. Routine labs were drawn which showed a WBC 20, bicarb 17, creatinine 1.9, troponin 2361. CXR showed bilateral pleural effusions and right lower lobe opacity. He was started on a heparin infusion, Lasix 80, insulin gtt , abx, pressors/steroids/ Respiratory: Pattern of CHF Small Bilat effusions RLL opacity Potential nodule to be worked up later On BiPAP, comfortable SIRS Lactate 3.8 WBC 23.7 Bicarb 21 Azithromycin/Ceftriaxone FiO2 30% Cardiovascular: Troponin 2361 BNP 16,730 Prior [place] NSTEMI Cardiology consulted Heparin gtt Neuro/Muscular: Alert Renal: Creat 1.7- now 2.24 after diuresis Avoid nephrotoxins Careful diureses GI/Nutrition: NPO for now Endocrine: Hyperglycemia AG only 13 7.35 BHOB 1.9 Suspect he can be released from isulin drip soon Heme/Onc: No issue ID: Cultures pending Prophylaxis: Heparin drip PPI Other: 47 minutes of critical time provided thus far today not including procedures. SUBJECTIVE: History Since Last Visit: Pt in ICU on BiPAP. Diuresing well. On heparin drip. Pending Lab and Radiology Results Order Current Status Hemoglobin A1c In process Lipid Panel In process MRSA DNA Amplified Probe In process Respiratory PCR Panel In process Blood Culture #1 Preliminary result Blood Culture #2 Preliminary result Interpretation of Testing: I personally reviewed the EKG and Chest X-ray and agree with the interpretation(s) with the following comments. Review of Systems: All other systems reviewed and negative other than HPI OBJECTIVE: Physical Examination: BP (!) 131/52 Pulse 78 Temp 98.3 F (36.8 C) (Axillary) Resp 17 Ht 5' 7 Wt 70.6 kg (155 lb 10.3 oz) SpO2 97% BMI 24.38 kg/m Temp: [97.8 F (36.6 C)-98.3 F (36.8 C)] 98.3 F (36.8 C) Heart Rate: [76-106] 78 Resp: [16-30] 17 BP: (131-170)/(52-83) 131/52 FiO2 (%): 30 SpO2 Readings from Last 1 Encounters: 11/27/23 97% Intake/Output Summary (Last 24 hours) at 11/27/2023 0835 Last data filed at 11/27/2023 0800 Gross per 24 hour Intake 207.42 ml Output 1625 ml Net -1417.58 ml Vital Signs Reviewed. Gen: Alert and oriented x 3, On BiPAP HEENT: Head: Normocephalic, no lesions, without obvious abnormality. Pharynx: Dental Hygiene adequate. Normal buccal mucosa. Normal pharynx. Neck: nontender, full range of motion, no mass, no focal lymphadenopathy Cardio: regular rate and rhythm, no murmur, brisk capillary refill Resp: clear to auscultation bilaterally, crackles at base Abd: soft, nontender, nondistended, no hepatosplenomegaly, no mass, normal bowel sounds MSK: Moves all four extremities spontaneously. Neuro: Grossly normal without focal findings Skin: no rashes, no jaundice MEDICATIONS: Current Facility-Administered Medications Medication Dose Route Frequency Provider Last Rate Last Admin acetaminophen (TYLENOL) tablet 650 mg 650 mg Oral Q4H PRN Norma Geiger CNP amLODIPine (NORVASC) tablet 10 mg 10 mg Oral Daily Norma Geiger CNP aspirin EC tablet 81 mg 81 mg Oral Daily Norma Geiger CNP atorvastatin (LIPITOR) tablet 20 mg 20 mg Oral Nightly Norma Geiger CNP 20 mg at 11/27/23 0515 azithromycin (ZITHROMAX) 500 mg in sodium chloride (NS) 0.9% 250 mL (vialmate) 500 mg Intravenous Q24H Norma Geiger CNP 250 mL/hr at 11/27/23 0600 Rate Verify at 11/27/23 0600 cefTRIAXone (ROCEPHIN) IVPB 2 g (premix) 2,000 mg Intravenous Q24H Norma Geiger CNP Stopped at 11/27/23 0535 ezetimibe (ZETIA) tablet 10 mg 10 mg Oral Daily Norma Geiger CNP furosemide (LASIX) injection 40 mg 40 mg Intravenous Q12H DIDI Norma Geiger CNP 40 mg at 11/27/23 0501 heparin (porcine) 25,000 unit/250 mL(100 unit/mL) in D5W infusion 0-70 Units/kg/hr Intravenous Continuous Norma Geiger CNP 9.9 mL/hr at 11/27/23 0600 14 Units/kg/hr at 11/27/23 0600 heparin bolus from bag 0-5,000 Units 0-5,000 Units Intravenous Continuous PRN Nroma Geiger CNP 2,100 Units at 11/27/23 0513 insulin regular in 0.9 % NaCl (MYXREDLIN) 100 Units/100 mL infusion 0.1-30 Units/hr Intravenous Titrated Norma Geiger CNP 6.1 mL/hr at 11/27/23 0804 6.1 Units/hr at 11/27/23 0804 ipratropium-albuteroL (DUO-NEB) 0.5-2.5 mg/3 ml nebulizer solution 3 mL 3 mL Inhalation Q4H DIDI Norma Geiger CNP 3 mL at 11/27/23 0755 ipratropium-albuteroL (DUO-NEB) 0.5-2.5 mg/3 ml nebulizer solution 3 mL 3 mL Inhalation Q2H PRN Norma Geiger CNP lidocaine HCL (UROJET/GLYDO) 2 % applicator 1 Application 1 Application Intra-urethral PRN Norma Geiger CNP metoprolol succinate (TOPROL-XL) 24 hr tablet 25 mg 25 mg Oral Daily Norma Geiger CNP nitroGLYCERIN (NITROSTAT) SL tablet 0.4 mg 0.4 mg Sublingual Q5 Min PRN Norma Geiger CNP ondansetron (ZOFRAN-ODT) disintegrating tablet 4 mg 4 mg Oral Q6H PRN Norma Geiger CNP Or ondansetron (ZOFRAN) injection 4 mg 4 mg Intravenous Q6H PRN Norma Geiger CNP perflutren lipid microspheres (DEFINITY) 0.143 mg/mL solution 0-10 mL of mixture 0-10 mL of mixture Intravenous Once in imaging Norma Geiger CNP sodium chloride (PF) (NS) flush 5 mL 5 mL Intravenous PRN Norma Geiger CNP And sodium chloride (PF) (NS) flush 5 mL 5 mL Intravenous Q8H DIDI Norma Geiger CNP 5 mL at 11/27/23 0515 And sodium chloride 0.9% (NS) 0-150 mL/hr Intravenous PRN Norma Geiger CNP [x] Medications reviewed. [x] Labs reviewed. Pertinent findings noted: [x] Radiology reviewed. Pertinent findings noted: [] Pathology reviewed. Pertinent findings noted: Family Update/ Code Status: Full code Laboratory and Additional Data Reviewed: Reviewed 11/27/23 8:35 AM: Laboratory and Microbiology documented in this encounter [facility] 11-30-2023 Consult note Associated Order (s): IP CONSULT TO CARE MANAGEMENT Care Management Consult Note Date: 11/30/2023 Time: 2:28 PM Patient Name: Enoc Fernandes Date of : 1945 Reason for Consult: Discharge needs Discharge Plan:Return to home Discharging Transportation Plan:Pt's Discharge Plan Status: Plan for discharge 12/01 tomorrow Assessment and Background Information: CM ASSESSMENT Introduced self to patient; CM Services explained; pt agreeable to CM assessment. LIVING ARRANGEMENTS: Patient lives with his in one story private residence . Entry into home has 2 steps, having 2 handrail(s), which pt can navigate. Pt lives on first floor. ADL'S: Performs all primary ADLs independently, i.e., bathing, toileting, continence, dressing, feeding, transfering . Food preparation completed by pt's . Shopping needs obtained by pt's . House keeping performed by pt's TRANSPORTATION: Pt drives and doeshave a working vehicle, transportation assistance provided by pt's . Pt's will transport pt home at time of discharge as appropriate. FINANCES: Pt aware this admission insurance coverage is listed as [employer] MANAGED MEDICARE/AETNA MEDICARE PLAN (PPO and no secondary insurance. Pt denies transportation, medication or food insecurity. Pt denies any concerns relating to obtaining medications or follow up medical care. DISCHARGE CARE RESOURCES: Pt has Ryley Jeter MD as PCP. The patient is not currently receiving home health services.. Pt decline HHC and out pt therapies. DME: As listed Living Arrangements: Spouse/significant other Support Systems: Spouse/significant other, Children Assistance Needed: denies Type of Residence: Private residence Prior to Admission Home Care Services: No Current Home Equipment: Adaptive equipment, Tub/Shower chair Holistic Assessment Medication adherence problem:: No History of falls in last 6 months:: No Family aware of the patient's advance care planning wishes:: Yes Do you have any cultural/spiritual connections or beliefs that would impact how we deliver your care?: No Chronic pain:: No Per PT eval, rollator has been recommended. Order placed with [facility] and will bring to pt's room at discharge. Pt aware other supply companies can provide DME but he is agreeable to [facility]. CM to follow. Physical Therapy PHYSICAL THERAPY EVALUATION and TREATMENT NOTE Dx: Severe sepsis, Acute on chronic hypoxemic respiratory failure Community Acquired Pneumonia NSTEMI Metabolic Acidosis Hematuria PHYSICAL THERAPY EVALUATION Skilled Therapy Needs After Discharge Are Skilled Therapy Services Needed After Discharge: (pt declines PT services after discharge) DME Recommendation: Rollator (CM notified) DME Rationale: Patient's condition creates an increased risk of safety hazard without recommended equipment, Rollator - patient has a medical condition that requires frequent rest breaks due to fatigue Rehab Potential: Good PT Caregiver Readiness Working toward discharge home: Yes PT Caregiver Training: Completed Who was trained?: (patient) Provided training for: Transfers - completed, Gait / locomotion- completed, Assistive device use - completed, Stair climbing - completed Caregiver response to training: Verbalizes understanding, Returns demonstration Outcomes Measures Prior Function - Basic Mobility Raw Score: 24 Points Prior Function - Basic Mobility % Impaired: 0% AM-PAC Basic Mobility Raw Score: 20 Points AM-PAC Basic Mobility % Impaired: 33.32% Physical Therapy Assessment History: The following factors influence the patient's participation in the PT plan of care: Personal Factors: Age Environmental Factors: Steps to enter home The following co-morbidities (from this admission or prior) influence the patient's participation in this plan of care: See H & P Number of History elements affecting this patient's PT plan of care: 1 to 2 Examination of Body Systems: The patient presents with: Musculoskeletal impairments: Strength, Functional Endurance Neurologic Impairments: Balance, Sensation Cardiopulmonary Impairments: Activity Tolerance. These impairments result in limitations of Gait, Functional Transfers, Stair-Climbing, Safety, Activity Tolerance. These impairments result in restrictions of Household mobility, Community mobility, Leisure activities. Number of Body Systems elements affecting this patient's PT plan of care: 3 or more. Clinical Presentation: The patient's clinical presentation for this PT evaluation is evolving with changing characteristics as evidenced by current PT documentation. Activity Tolerance Activity Tolerance: Tolerates 30 min acitivty with multiple rests Therapy Precautions Orthotic Devices: No Weight Bearing Status: WFL General Rehab Precautions: Fall risk Balance Assessment Sitting Balance - Static: Modified independent, with unilateral LUE support, with unilateral RUE support, with back unsupported, 3+ to 5 minutes Standing Balance - Static: Supervision, without UE support Neon Molder - Standing Static: (no device) Standing Balance - Dynamic: Stand by assist, Contact guard assist (without device; sba/ supervision with rollator) Neon Molder - Standing Dynamic: (trialed with and without rollator) Loss of Balance- Standing Dynamic: (left path deviation unsteadiness without device; no LOB with use of rollator and gait steadiness much improved.) Bed Mobility Rolling: Modified independent, Head of bed flat Supine to Sit: Modified independent, Head of bed flat Sit to Supine: (NT: pt up in chair post PT session) Neon Molder: (none) Transfers Sit to Stand: Stand by assist Bed to Chair: Stand by assist, Contact guard assist (no device) Stand Pivot Transfers: Stand by assist, Contact guard assist (no device) Neon Molder: (no AD) Additional Transfer Trial 2: Yes Sit to Stand Trial 2: Stand by assist (from chair with karin ue support) Neon Molder Trial 2: BUE Additional Transfer Trial 3: Yes Sit to Stand Trial 3: Stand by assist (from locked rollator seat) Neon Molder Trial 3: (locked rollator handles) Gait/Locomotion Gait Assistance: Stand by assist, Contact guard assist Assistive Device: (no AD) Distance: 300 Feet Rest Breaks: Yes Rest Break Position: seated Rest Break Duration: 2 mins; (mild SOB; SpO2 94% on RA) Additional Gait Trial 2: Yes Gait Assistance Trial 2: Stand by assist, Supervision Assistive Device Trial 2: rollator Distance Trial 2: 100 Pattern: step through, R decreased step length, L decreased step length, decreased john (steps per minute) (path deviation to left without AD with unsteadiness; gait steadiness improved with Rollator- no LOB) Weight Bearing Status: able to maintain Gait Loss(es) of Balance: (unsteadiness without AD; no LOB with use of rollator) Environment/Terrain: open/community environment, multiple distractions Stair Management Technique: R rail up/L rail down, alternating pattern, forwards Stair Management Assistance: Stand by assist Number of Stairs: 5 Home Living Obtained Home Living and PLOF info from: Patient Lives With: Spouse Type of Home: House Home Layout: One level, Able to live on main level with bedroom/bathroom, Performs ADLs on one level (laundry on main) Steps to enter home: Yes Rails to enter home: 2 rails Number of stairs to enter home: 2 Bathroom Shower/Tub: Walk-in shower, Main level Bathroom Toilet: Standard, Main level Bathroom Equipment: Grab bars in shower, Bulit-in shower seat Bathroom Accessibility: Accessible via walker Mobility Equipment: Cane, Home oxygen (PRN 2 L O2;) Prior Level of Function Level of [place] - Transfers/Ambulation/Mobility: Independent with functional transfers, Independent with household ambulation, Independent with community ambulation (no AD for in home ambulation, intermitant use of cane in community for longer distances) Level of [place] - ADLs: Independent Level of [place] - Homemaking: ( takes care of all housework - but reports that he could do it if needed.) Driving: Patient drives Vocational: Retired Subjective Impression - Prior Function: Pt denies any falls in last 6 months. PHYSICAL THERAPY TREATMENT NOTE Total Treatment Time (Total Session Time): 38 Minutes Total Timed Code Treatment Minutes: 10 Minutes Gait Training Skilled Intervention Provided: patient education, verbal cues, monitoring patient response with activity For: device adjustment fit to patient, device management and safe use of device, fall prevention, self-monitoring during activity, stairs sequence/technique Resulting in: improved activity tolerance, improved performance, improved safety, increased upright tolerance for functional tasks (with use of rollator) Therapeutic Activities Transfers Skilled Intervention Provided: patient education, verbal cues, demonstration, monitoring patient response with activity, monitoring patient response with positional changes For: safe use of AD and/or equipment, sequencing of movement, safety during functional tasks, postural alignment, midline orientation, UE positioning, controlled descent, fall prevention Resulting in: improved activity tolerance, improved awareness, improved performance, improved safety Additional Treatment Details Pt on 2L O2 via NC in room , SpO2 97%. O2 removed to assess response with exertion. Within 2-3 mins, SpO3 maintaining at 94% on RA. SpO2 did not drop below 94% with exertion. RN ok'd for pt to remain on RA post PT session. Gait mildly unsteady with pt often demonstrating mild path deviation to right but able to self correct without LOB without device. Pt trialed rollator and reported he very much liked support it provided as well as giving the ability to sit and rest as needed on long distance ambulation. Pt educate on locking/ braking system with transfers/ sitting and pt able to return good demonstration of understnading. CM notified of pt needs for rollator at discharge. Pt declined PT services at [facility]. Pt up in chair post PT session. Break away alarm donned. Handoff provided to RN. Patient educated on home safety, fall prevention, energy conservation, need for slow transitional movements and directional changes to decrease fall risk, safe/ proper use of assistive device, proper hand placement for transfer safety , proper and safe mobility through verbal instruction and demonstration. Pt educated on need for patient to use call light to notify staff to assist with all functional transfers/mobility to maximize safety and decrease risk for falls. Patient educated on purpose, plan and goals for skilled PT services and initiation of discharge planning. Call light within patients reach. Pt verbalized and demonstrated understanding of education and denies questions at this time. Will continue to progress pt per POC. 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 This note stands as the current Discharge Summary upon patient discharge from the hospital or completion of Physical Therapy Plan. Associated Order(s): IP CONSULT TO DIETITIAN Nutrition Care Initial Assessment Reason for visit: Physician Consult for DM education Nutrition Diagnosis: Altered nutrition related lab values related to diabetes, endocrine dysfunction as evidenced by hyperglycemia. Nutrition Intervention/Prescription: Continue PO diet. Diet: Cardiac, Diabetic (60 g CHO/meal) Oral nutrition supplement: n/a - as needed Tube Feeding: n/a Nutrition Goals: PO intake > 75% most meals Start Date:11/29/2023 Expected End Date:12/05/2023 Nutrition Education: RDN met with pt and family in room on this date - no questions in relation to diabetic diet for this clinician at this time. Pt with hx of T1DM for ~30 years. Assessment: Pertinent clinical information: pt presented with respiratory distress. Severe sepsis in relation to pneumonia noted. In addition, NSTEMI noted. Admitted for further management. 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 Weight hx: gradual wt loss observed per hospital records. 10% x 9 months. Wt Readings from Last 10 Encounters: 11/29/23 65.4 kg (144 lb 1.6 oz) 10/21/23 67.4 kg (148 lb 11.2 oz) 10/08/23 72.1 kg (159 lb) 06/21/23 71.7 kg (158 lb) 02/19/23 72.6 kg (160 lb) 10/19/22 71.7 kg (158 lb 1.6 oz) 06/19/22 73 kg (161 lb) 02/13/22 74.8 kg (165 lb) 10/13/21 74.3 kg (163 lb 11.2 oz) 06/20/21 75.5 kg (166 lb 8 oz) Current diet order: Cardiac, Diabetic (60 g CHO/meal) Current EN order: n/a Current supplements: n/a Recent intake: 75-100% of 1 meal recorded on 11/28. Current intake Likely does not meet estimated needs. Patient/family comments: pt with impaired appetite at present. Encouraged regular meal consumption, gradually eating a bit more at each meal time to build it back up. RDN to remain available in interim. Difficulty Chewing/Swallowing: No Skin Integrity: Intact GI Function: LBM 11/28 Edema: non-pitting generalized edema noted as well as non-pitting edema to BLE per RN flowsheet documentation Physical Appearance: thin in appearance. Labs: Recent Labs 11/28/23 0742 11/29/23 0324 NA 142 137 K 4.3 4.0 BICARB 23 28 CL 110* 106 GLUCOSE 183* 234* BUN 33* 34* CREATININE 1.99* 1.91* MG 2.5* 2.2 PHOS 3.6 -- Scheduled Meds: amLODIPine 10 mg Oral Daily aspirin 81 mg Oral Daily atorvastatin 20 mg Oral Nightly azithromycin 500 mg Intravenous Q24H cefTRIAXone (ROCEPHIN) IVPB 2,000 mg Intravenous Q24H ezetimibe 10 mg Oral Daily furosemide 20 mg Intravenous Q12H [facility] insulin glargine 16 Units Subcutaneous Nightly lispro insulin 0-15 Units Subcutaneous at bedtime insulin lispro 0-30 Units Subcutaneous Daily before lunch insulin lispro 0-30 Units Subcutaneous Before dinner [START ON 11/30/2023] insulin lispro 0-30 Units Subcutaneous QAM AC metoprolol succinate 25 mg Oral Daily sodium chloride (PF) 5 mL Intravenous Q8H [facility] Continuous Infusions: heparin infusion (weight based dosing) 16 Units/kg/hr (11/29/23 0616) heparin sodium chloride 0.9 % Estimated Energy Needs Total Energy Estimated Needs: 6487-2424 kcal/d Method for Estimating Needs: 25-30 kcal/kg current wt Total Protein Estimated Needs: 65 g/d Method for Estimating Needs: 1 g/kg current wt Grazyna Obregon RDN, LD, [facility] Office Associated Order(s): IP CONSULT TO HEATING AND VENTILATION ENGINEER Met with pt for diabetes education. States he's had T1DM for many years. Keeps it fairly well controlled. Always takes his insulin and tries to stay away from foods that he knows is going to spike his blood sugar. States he has occasional hypoglycemia. Treats it appropriately. States he's never had DKA that he knows of but would like to know about it. Discussed pt's A1C of 7.5% and goal, target levels for control, the importance of a regular feeding schedule, balancing CHOs at feedings, staying active, DKA including ketone testing and when to contact Dr. Yan's office or go to the ED. Questions answered. Associated Order(s): IP CONSULT TO BIOPHYSICS PROFESSOR See earlier consult Patient Name: Enoc Fernandes MR #: [id number] : 1945 Physicians: Ryley Jeter MD (Family); Ger Aguilera DO (Referring) Chief complaint: Enoc Fernandes is a 77 y.o. male presented with worsening history of shortness of breath. History: I have reviewed the patient's past medical history, past surgical history, family history, social history. Patient evaluated today, no history of congestive heart failure, diabetes, and emphysema lung, history of smoking, he also had spinal stenosis in the past, and had had kidney stones. About 5 weeks ago patient states that he had COVID-19 infection, and then was admitted in [facility]. At that time he was having respiratory failure, and also was having bilateral infiltrates and was found with echocardiogram with ejection fraction of 35%. At [facility], patient was treated with BiPAP, ceftriaxone, azithromycin, and dexamethasone. Was not placed on remdesivir or any Paxlovid. Patient presents on this visit with worsening history of shortness of breath. He had also some cough with sputum production but not as much. He did not have fever or chills. No history of chest pain. No history of night sweats. Patient was found with Tmax of 99.7,And was rescreened for COVID-19 with molecular test was positive but negative PCR. He also had respiratory failure, currently [place] [address], And troponin of 9000. Patient also had Inflammatory markers with C-reactive protein of 2.9, and ESR of 21, and had a blood culture that showed no growth. Chest x-ray however had shown bilateral infrahilar patchy opacity concerning for pneumonia. He was started on p.o. azithromycin, and also has been on diuretics, current evaluation is for respiratory failure, congestive heart failure, suspicion for pneumonia, history of COVID-19 infection, and also for antibiotics management. Past Medical History: Diagnosis Date Arthritis CHF [...] disease Father Alzheimer's disease Father Social History Socioeconomic History Marital status: Tobacco Use Smoking status: Every Day Packs/day: 0.50 Years: 51.00 Additional pack years: 0.00 Total pack years: 25.50 Types: Cigarettes Smokeless tobacco: Never Substance and Sexual Activity Alcohol use: No Alcohol/week: 0.0 standard drinks of alcohol Drug use: No Travel History: None Animal Contact: None Medications: I have reviewed the patient's medications. Scheduled Meds: amLODIPine 10 mg Oral Daily aspirin 81 mg Oral Daily atorvastatin 20 mg Oral Nightly azithromycin 500 mg Intravenous Q24H cefTRIAXone (ROCEPHIN) IVPB 2,000 mg Intravenous Q24H ezetimibe 10 mg Oral Daily furosemide 40 mg Intravenous Q12H [facility] ipratropium-albuteroL 3 mL Inhalation Q4H [facility] metoprolol succinate 25 mg Oral Daily sodium chloride (PF) 5 mL Intravenous Q8H [facility] Allergy Information: I have reviewed the patient's allergies. [id number] reductase inhibitors Review of Systems: Review of Systems Constitutional: Positive for fatigue. Negative for chills and fever. Respiratory: Positive for cough and shortness of breath. Negative for wheezing. Cardiovascular: Negative for chest pain, palpitations and leg swelling. Gastrointestinal: Negative for abdominal distention, abdominal pain, constipation, diarrhea, nausea and vomiting. Endocrine: Negative for polydipsia, polyphagia and polyuria. Genitourinary: Negative for dysuria, flank pain, frequency and hematuria. Musculoskeletal: Negative for joint swelling, neck pain and neck stiffness. Skin: Negative for color change, pallor and rash. Neurological: Positive for weakness. Negative for dizziness, numbness and headaches. Psychiatric/Behavioral: Negative for confusion. Labs: Lab Results Component Value Date WBC 23.69 (H) 11/27/2023 HGB 11.9 (L) 11/27/2023 HCT 36.5 (L) 11/27/2023 MCV 94.7 11/27/2023 PLT 220 11/27/2023 Lab Results Component Value Date HGBA1C 7.5 (H) 11/27/2023 Lab Results Component Value Date SEDRATE 21 (H) 11/27/2023 Lab Results Component Value Date CRP <2.9 11/27/2023 Radiology: XR Chest 1 View Final Result Bilateral infrahilar patchy opacities, concerning for pneumonia. Sensser Workstation ID: [id number] Echocardiogram complete (Results Pending) Physical Examination: Vital Signs: BP (!) 120/46 Pulse 84 Temp 99.7 F (37.6 C) (Axillary) Resp 18 Ht 5' 7 Wt 70.6 kg (155 lb 10.3 oz) SpO2 96% BMI 24.38 kg/m Physical Exam Constitutional: Appearance: He is well-developed. He is ill-appearing. HENT: Head: Normocephalic. Eyes: General: Right eye: No discharge. Left eye: No discharge. Cardiovascular: Rate and Rhythm: Normal rate and regular rhythm. Heart sounds: Normal heart sounds. Pulmonary: Effort: Respiratory distress present. Breath sounds: Rales present. No wheezing. Comments: Patient on BiPAP. Chest: Chest wall: No tenderness. Abdominal: General: There is no distension. Tenderness: There is no abdominal tenderness. There is no rebound. Musculoskeletal: General: No tenderness. Cervical back: Normal range of motion and neck supple. Right lower leg: No edema. Left lower leg: No edema. Skin: General: Skin is warm. Coloration: Skin is not pale. Findings: No rash. Neurological: Mental Status: He is oriented to person, place, and time. Psychiatric: Behavior: Behavior normal. Thought Content: Thought content normal. Assessment and Plan: Patient with 1. Respiratory failure 2. Suspicion for pneumonia 3. Possible congestive heart failure 4. Non-ST elevation [place]. 5. History of COVID-19 infection. Plan. Continue patient on current therapy Patient currently on IV azithromycin Patient on ceftriaxone From [facility] 5 weeks ago patient was status post IV ceftriaxone and azithromycin treatment. Will get sputum culture. Follow-up labs Follow-up ESR, C-reactive protein, D-dimer level, ferritin level, LDH. Urine for strep antigen and Legionella antigen are negative Patient on IV diuretics with furosemide. Follow-up labs For review chest x-ray, with infrahilar patchy opacities bilaterally. Get CT scan of the chest the patient is stable. Previous x-ray at had shown congestive changes and edema on 11/26/2023. Patient on BiPAP Aspiration precaution recommended Patient was status post 3 shots of COVID-19 immunization in the past. Will continue to follow with you. Problem List Items Addressed This Visit None I have taken time to review patient's information and having discussions, I appreciate seeing your patient, will continue to follow with you, and adjust with more information. Medical decision making.High. Drug Rx requiring intensive monitoring for toxicity and side effects; Extensive discussion regarding a diagnosis and multiple treatment options. This note is created with the assistance of a speech-recognition program. While intending to generate a document that actually reflects the content of the visit, the document can still have some errors including those of syntax and sound a- like substitutions which may escape proofreading. In such instances, actual meaning can be extrapolated by contextual derivation. Associated Order(s): IP CONSULT TO ENDOCRINOLOGY Patient ID: Patient Name: Enoc Fernandes Admit Date: 11/27/2023 MR #: [id number] : 1945 Current location: [facility] Physicians: Ryley Jeter MD (Family); Britton Geiger CNP (Referring) Reason for consult: Type 1 diabetes Assessment/Plan: Dx: Type 1 diabetes, Currently taking as outpatient: Humalog insulin: 7 units at breakfast; 8 units at lunch; 8-9 units at supper Lantus insulin: 12-14 units at bedtime Humalog sliding scale Current Hemoglobin A1C= Lab Results Component Value Date HGBA1C 7.6 06/11/2023 HGBA1C 8.1 06/08/2022 HGBA1C 7.4 10/13/2021 NOTES: 11/27 BG and labs reviewed. Na 142, K 3.4, creat 2.35, eGFR 27, phos 2.3 Mg 2.1, HgbA1c 7.5%, TChol 130, TG 67, HDL 56, LDL 61.Patient remains NPO, on IV insulin. Blood Glucoses: 11/27 [phone]---[phone] Plan: 1. Rx changes: 11/27 Continue IV insulin until stable, then resume QID regimen. Subjective: Brief HPI: Patient is a 77-year-old male with a history of type 1 diabetes mellitus for 29 years, CHF, hypertension, hyperlipidemia, emphysema who presented to [facility] emergency department with a complaint of shortness of breath. He was recently diagnosed with COVID infection on 10/19, and since then he has been experiencing intermittent chest pain and shortness of breath. On 11/27, he developed severe respiratory distress and chest discomfort with diaphoresis, and presented to the emergency department for evaluation. He was found to have bilateral pleural effusions and right lower lobe opacity, elevated troponin 2361, BG 523, T CO2 17. He was transferred to [facility] for further evaluation and treatment. At the time of this consultation he is on CPAP, and is awake and alert, but short of breath. He denies current chest pain. He has been started on IV insulin for management of his hyperglycemia. Patient has had diabetes for 29 years. Diagnosed in 1994. Patient is currently taking Lantus and Humalog. Patient has taken Insulin for 29 years. Currently the patient is receiving IV insulin.. Blood sugar levels since admission have been ranging from 453-523 mg/dL. Current monitoring regimen: home blood tests - 4 times daily Complications of diabetes include: Retinopathy: Negative Nephropathy: Positive Peripheral Neuropathy: Positive Autonomic Neuropathy: Negative 11/27 admission labs sodium 138, potassium 4.8, chloride 107, CO2 21, glucose 523, BUN 42, creatinine 2.24, AST 74, ALT 47, alk phos 97, total bilirubin 0.7, TSH 0.35, CRP less than 2.9, BNP 16,730, troponin 9973, calcium 8.9, WBC 23.69, hemoglobin 11.1, hematocrit 34.0, platelet count 220,000 Allergies: Allergies Allergen Reactions Fghjbuw-Qzp-Vlj Reductase Inhibitors Muscle cramps Home Medications: Outpatient Medications Marked as Taking for the 11/27/23 encounter (Hospital Encounter): acetaminophen (Tylenol Arthritis Pain) 650 MG CR tablet, Take 1 (one) tablet (650 mg total) by mouth every 8 (eight) hours as needed for pain . amLODIPine (NORVASC) 10 MG tablet, Take 1 (one) tablet (10 mg total) by mouth daily . ezetimibe (Zetia) 10 mg tablet, Take 1 (one) tablet (10 mg total) by mouth daily . Current Medications: amLODIPine 10 mg Oral Daily aspirin 81 mg Oral Daily atorvastatin 20 mg Oral Nightly azithromycin 500 mg Intravenous Q24H cefTRIAXone (ROCEPHIN) IVPB 2,000 mg Intravenous Q24H ezetimibe 10 mg Oral Daily furosemide 40 mg Intravenous Q12H DIDI ipratropium-albuteroL 3 mL Inhalation Q4H DIDI metoprolol succinate 25 mg Oral Daily sodium chloride (PF) 5 mL Intravenous Q8H DIDI acetaminophen, heparin, ipratropium-albuteroL, [COMPLETED] Insert Indwelling Urethral Catheter AND Maintain and Assess Indwelling Urethral Catheter AND [COMPLETED] Remove and Discontinue Indwelling Urethral Catheter - Remove PER NURSING POLICY AND lidocaine HCL, nitroGLYCERIN, ondansetron OR ondansetron, perflutren lipid microspheres, Saline lock IV AND sodium chloride (PF) AND sodium chloride (PF) AND sodium chloride 0.9 % Review of Systems: Review of Systems Constitutional: Positive for appetite change and fatigue. Negative for unexpected weight change. Eyes: Negative for visual disturbance. Respiratory: Positive for cough, chest tightness and shortness of breath. Cardiovascular: Positive for chest pain. Negative for palpitations. Gastrointestinal: Negative for constipation, diarrhea, nausea and vomiting. Endocrine: Negative for polydipsia, polyphagia and polyuria. Genitourinary: Negative for frequency. Neurological: Positive for weakness. Negative for numbness. Psychiatric/Behavioral: Positive for sleep disturbance. History: Past Medical History: Diagnosis Date Arthritis CHF [...] disease Father Social History Tobacco Use Smoking status: Every Day Packs/day: 0.50 Years: 51.00 Additional pack years: 0.00 Total pack years: 25.50 Types: Cigarettes Smokeless tobacco: Never Substance Use Topics Alcohol use: No Alcohol/week: 0.0 standard drinks of alcohol Drug use: No The following portions of the patient's history were reviewed and updated as appropriate: allergies, current medications, past family history, past medical history, past social history, past surgical history and problem list. Objective: BP (!) 166/56 (BP Location: Right arm, Patient Position: Lying) Pulse 95 Temp 97.8 F (36.6 C) (Axillary) Resp 16 Ht 5' 7 Wt 70.6 kg (155 lb 10.3 oz) SpO2 100% BMI 24.38 kg/m Wt Readings from Last 3 Encounters: 11/27/23 70.6 kg (155 lb 10.3 oz) 10/21/23 67.4 kg (148 lb 11.2 oz) 10/08/23 72.1 kg (159 lb) Physical Exam: Physical Exam Vitals reviewed. Constitutional: Appearance: He is well-developed. HENT: Head: Normocephalic. Eyes: General: No scleral icterus. Conjunctiva/sclera: Conjunctivae normal. Cardiovascular: Rate and Rhythm: Normal rate and regular rhythm. Heart sounds: Normal heart sounds. Pulmonary: Effort: Respiratory distress present. Breath sounds: Normal breath sounds. Comments: On CPAP Skin: General: Skin is warm. Findings: No erythema. Neurological: Mental Status: He is alert and oriented to person, place, and time. Laboratory Review: BP (!) 166/56 (BP Location: Right arm, Patient Position: Lying) Pulse 95 Temp 97.8 F (36.6 C) (Axillary) Resp 16 Ht 5' 7 Wt 70.6 kg (155 lb 10.3 oz) SpO2 100% BMI 24.38 kg/m Lab Results Component Value Date HGBA1C 7.6 06/11/2023 Glucose (mg/dL) Date Value 11/27/2023 544 (CH) 11/27/2023 523 (CH) Creatinine (mg/dL) Date Value 11/27/2023 2.24 (H) 06/11/2023 1.85 No results found for: CHOL, TRIG, HDL, LDLCALC, LDL Lab Results Component Value Date TSH 0.35 11/27/2023 No results found for: FREET4 Lab Results Component Value Date WBC 23.69 (H) 11/27/2023 HGB 11.9 (L) 11/27/2023 HCT 36.5 (L) 11/27/2023 MCV 94.7 11/27/2023 PLT 220 11/27/2023 This SmartLink has not been configured with any valid records. This SmartLink has not been configured with any valid records. Laboratory and Additional Data Reviewed: Laboratory 11/27/23 7:24 AM Radiology 11/27/23 7:24 AM Cardiology 11/27/23 7:24 AM Medications 11/27/23 7:24 AM Transcriptions 11/27/23 7:24 AM Thank you for this consultation, we will continue to follow this patient with you. Mary Yan MD Associated Order(s): IP CONSULT TO CARDIOLOGY INPATIENT CONSULT NOTE 11/27/2023 ASSESSMENT/PLAN NSTEMI, type II White count 20,000, troponin 9973, 9973; lactic acid elevated EKG personally reviewed showed sinus rhythm suggest previous anterior [place] minor ST depression laterally similar to 10/11/2023 report Telemetry reviewed and shows sinus tachycardia He reports no symptoms to suggest ischemic heart disease. Reviewed chest x-ray which shows significant infiltrates particular on the right side Clinically this is type II NSTEMI due to pneumonia, sepsis, lactic acidosis, MADONNA hyperglycemia, respiratory distress. Delta D is negative Recommendations: Would not proceed with an invasive evaluation Treat hypoxia, infection, hyperglycemia Maintain excellent electrolyte balance potassium above 4.0 magnesium above 2.0 and normal calcium Diuresis as clinically indicated Agree with heparin 48 hours Would restart his PASCALE inhibitor when MADONNA improves or okayed by renal In the interim if he needs antihypertensive Isordil or hydralazine would be drugs of choice given LV dysfunction LV dysfunction Known systolic dysfunction echo in October hospitalized with COVID showed ejection fraction 35% by report which was global dysfunction Outpatient plan for nuclear stress to assess for ischemia Report of chest x-ray in ER pulmonary vascular congestion small bilateral pleural edemas right lower lobe infiltrates nodular opacity at left lung base MADONNA COPD On home oxygen Tobacco abuse Ongoing Diabetes type 1 The following Vizient risk variables were noted and present on admission: Noninvasive Mechanical Ventilation (including heated high flow nasal cannula), Acute Respiratory Failure, Bacterial Pneumonia, Fluid Overload, and Acidosis Please see assessment and plan for further details. Asked to evaluate Enoc Fernandes for NSTEMI History of Present Illness: Enoc Fernandes is a 77 y.o. male presenting with complaints of dyspnea. He had been over 3 weeks testing positive for COVID and diagnosed with pneumonia been treated with 2 courses of oral antibiotics and steroids. When testing positive initially he was hospitalized at [facility] on BiPAP. Communication is a bit difficult as he is on BiPAP however he states he has had no chest discomfort no orthopnea, PND, edema. History: Past Medical History: Diagnosis Date Arthritis CHF [...] disease Father Alzheimer's disease Father Social History Socioeconomic History Marital status: Tobacco Use Smoking status: Every Day Packs/day: 0.50 Years: 51.00 Additional pack years: 0.00 Total pack years: 25.50 Types: Cigarettes Smokeless tobacco: Never Substance and Sexual Activity Alcohol use: No Alcohol/week: 0.0 standard drinks of alcohol Drug use: No Allergy Information: I have reviewed the patient's allergies. Yerrats-ffp-byk reductase inhibitors Home Medications: Outpatient Medications as of 11/27/2023 Medication Sig acetaminophen (Tylenol Arthritis Pain) 650 MG CR tablet Take 1 (one) tablet (650 mg total) by mouth every 8 (eight) hours as needed for pain . amLODIPine (NORVASC) 10 MG tablet Take 1 (one) tablet (10 mg total) by mouth daily . ezetimibe (Zetia) 10 mg tablet Take 1 (one) tablet (10 mg total) by mouth daily . blood sugar diagnostic (Contour Next Test Strips) strips Use as directed 4 times per day. Dx E10.9 Patient with type 1 DM on insulin with hypoglycemia. Needs to check BG QID; takes insulin QID . insulin glargine (Lantus Solostar U-100 Insulin) 100 unit/mL (3 mL) InPn Inject 14 (fourteen) Units under the skin nightly . insulin lispro 100 unit/mL InPn Use as directed 8 units before breakfast, 9 units before lunch, 10 units before dinner Needs Admelog Solostar Pens. . lisinopriL (PRINIVIL,ZESTRIL) 10 MG tablet Take 1 (one) tablet (10 mg total) by mouth daily In addition to lisinopril /hydrochlorothiazide 20/12.5 tablet . (Patient taking differently: Take 1 (one) tablet (10 mg total) by mouth daily .) metoprolol succinate (TOPROL-XL) 25 MG 24 hr tablet Take 1 (one) tablet (25 mg total) by mouth daily . OXYGEN-AIR DELIVERY SYSTEM[facility] Inhale 2 L/min See Admin Instructions . pen needle, diabetic (BD Ultra-Fine Jolynn Pen Needle) 32 gauge x 5/32 Ndle Use as directed 4x daily DX code E10.65 . Review of Systems: Pertinent findings above Physical Examination: BP (!) 166/56 (BP Location: Right arm, Patient Position: Lying) Pulse 95 Temp 97.8 F (36.6 C) (Axillary) Resp 16 Ht 5' 7 Wt 70.6 kg (155 lb 10.3 oz) SpO2 100% BMI 24.38 kg/m General appearance he is on BiPAP but able to talk appears somewhat comfortable HEENT atraumatic, sclera nonicteric, normal hearing Neck supple with no thyromegaly noted Chest wall no deformity noted Lungs crackles bilaterally. Cardiovascular regular rate and rhythm. PMI is nonpalpable. There is no jugular venous distention. S1 is normal S2 is physiologically split. There are no obvious murmurs gallops or rubs. There are no carotid bruits Abdomen soft nontender Extremities no cyanosis, no edema noted. Neurologic alert and oriented x3 with no gross neurologic defects identified Psychiatric appropriate mood and affect. Intake/Output last 3 shifts: No intake/output data recorded. Laboratory and Additional Data Reviewed: Results from last 7 days Lab Units 11/27/23 0326 TROPONIN I ng/L 9,973* Results from last 7 days Lab Units 11/27/2353911/27/2333111/27/23 0326 SODIUM mmol/L 138 < > 136 POTASSIUM mmol/L 4.0 < > 4.6 CHLORIDE mmol/L 108 < > 107 BUN mg/dL -- -- 42* CREATININE mg/dL -- -- 2.24* GLUCOSE mg/dL 544* < > 523* CALCIUM mg/dL -- -- 8.9 < > = values in this interval not displayed. Results from last 7 days Lab Units 11/27/23 0326 NT PRO BNP pg/mL 16,730* Results from last 7 days Lab Units 11/27/2353911/27/2333111/27/23 0326 SODIUM mmol/L 138 < > 136 POTASSIUM mmol/L 4.0 < > 4.6 CHLORIDE mmol/L 108 < > 107 BUN mg/dL -- -- 42* CREATININE mg/dL -- -- 2.24* GLUCOSE mg/dL 544* < > 523* CALCIUM mg/dL -- -- 8.9 TSH mcIU/mL -- -- 0.35 < > = values in this interval not displayed. Results from last 7 days Lab Units 11/27/2353911/27/2333111/27/236 WBC K/mcL -- -- 23.69* HGB g/dL -- -- 11.1* HEMOGLOBIN BG g/dL 11.9* < > -- HEMATOCRIT, CALCULATED % 36.5* < > -- HCT % -- -- 34.0* PLT K/mcL -- -- 220 < > = values in this interval not displayed. Radiographics: Pertinent studies reviewed and noted above. Cardiac Studies: Reviewed. Telemetry: Reviewed. No EKG results on file. No Echo results on file. No Stress Test results on file. No Cardiac Cath results on file. I spent 35 minutes of critical care time in evaluation manage of this patient. No problems updated. Patient Name: Enoc Fernandes Admit Date: [id number] MR #: [id number] : 1945 Physicians: Ryley Jeter MD (Family); Ger Aguilera DO (Referring) Julia Parker MD documented in this encounter [facility] 11-27-2023 History and physical note [facility] [place] [facility] Patient Name: Enoc Fernandes : 1945 MR #: [id number] Admit Date: 11/27/2023 Physicians: Ryley Jeter MD (Family); Ger Aguilera DO (Referring) Enoc Fernandes is a 77 y.o. male patient of Ryley Jeter MD with history of HTN, HLD, DM Type I, CKD, COPD, chronic hypoxemic respiratory failure who presented to [facility] with respiratory distress . Severe Sepsis Present on admission: yes Etiology: Pneumonia SIRS criteria: Respiratory rate greater than 20 or PACO2 less than 32mmHg, WBC greater than 12,000, less than 4,000, or greater than 10% bands Evidence of end organ damage: Lactic acid greater than 2.0 Initial lactic acid: 3.8 Repeat lactic acid: pending Current antibiotic regimen: Azithromycin/Ceftriaxone Culture data: blood, sputum, urine cultures; urine strep/legionella antigen; MRSA Vasopressors/steroids: none Initial sepsis checklist: Lactate ordered [x] Blood cultures obtained [x] Antibiotics initiated [x] IV fluids per sepsis protocol [] - not initiated due to heart failure Acute on chronic hypoxemic respiratory failure Community Acquired Pneumonia Wears 2L per NC at baseline Currently on NIPPV 14/8 40% FiO2 - wean as able Azithromycin/Ceftriaxone Scheduled/PRN bronchodilators. Sputum culture Urine antigens: Strep/Legionella Check stool for C Diff. NSTEMI Congestive heart failure Continue heparin gtt per arterial nomogram Start aspirin, statin Continue metoprolol Consult cardiology Check lipid panel, TSH, Hemoglobin A1c NTG sublingual PRN EKG Echocardiogram in AM. Diurese Daily weight, Strict I/O Metabolic Acidosis DM Type I DM neuropathy Check HgA1c Home regimen: Lantus 14-18u at HS; Lispro 8-10u with meals Check BMP, Mg, Phos, beta hydroxyburate for suspected DKA Start insulin drip per DKA protocol. Consult endocrinology, DM education, and bandage maker Essential Hypertension Dyslipidemia Continue amlodipine, metoprolol, ezetimibe Residence prior to admission: house or apartment Was patient transferred from outlying hospital or ED no Quality Measures DVT Prophylaxis: heparin gtt Henley Catheter: absent Medication Reconciliation: Verified Risk variables present on admission: Non-invasive Mechanical Ventilation , Acute Respiratory Failure, AMI, NSTEMI, CHF, and Chronic Kidney Disease. Please see assessment and plan for further details. Estimated Date of Discharge greater than 2 midnights Code Status Full Code; code status verified on 11/27/2023 with patient (capacity intact) Chief Complaint respiratory distress History of Present Illness Enoc Fernandes is a 77 year old male patient of Ryley Jeter MD, who presented to [facility] with respiratory distress. The patient states that he has been ill for the past 3 weeks, testing positive for Covid and then diagnosed with pneumonia. He has been treated as an outpatient with oral antibiotics. He has been experiencing intermittent chest pain for the past 3 weeks, described as a midsternal non radiating pressure, that resolved on its own. This evening, he developed severe respiratory distress and chest discomfort with associated diaphoresis. On arrival to [facility], he was placed on NIPPV with improvement in respiratory effort. Routine labs were drawn which showed a WBC 20, bicarb 17, creatinine 1.9, troponin 2361. CXR showed bilateral pleural effusions and right lower lobe opacity. He was started on a heparin infusion. He was referred for admission for further management. 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 Past Surgical History Past Surgical History: Procedure Laterality Date CATARACT EXT/ECCE Bilateral 12/2012,07/2014 SKIN CANCER EXCISION 09/2021 L ear Family History Family History Problem Relation Age of Onset Coronary artery disease Father Alzheimer's disease Father Social History Social History Tobacco Use Smoking Status Every Day Packs/day: 0.50 Years: 51.00 Additional pack years: 0.00 Total pack years: 25.50 Types: Cigarettes Smokeless Tobacco Never Social History Substance and Sexual Activity Alcohol Use No Alcohol/week: 0.0 standard drinks of alcohol Social History Substance and Sexual Activity Drug Use No Allergy Information I have reviewed the patient's allergies. Wvrtmqc-oyb-pnz reductase inhibitors Home Medications Home medications were reviewed. Review Of Systems All relevant systems have been reviewed and are negative except as noted in HPI or below Physical Examination BP (!) 156/68 (BP Location: Right arm, Patient Position: Lying) Ht 5' 7 Wt 70.6 kg (155 lb 10.3 oz) BMI 24.38 kg/m General Appearance: alert; chronically ill appearing; in no acute distress HEENT: Head- normocephalic; Eyes- EOMI, sclera anicteric; Throat- mucous membranes moist Cardiovascular: regular rate and rhythm; normal S1, S2; no murmurs, rubs, clicks or gallops; peripheral edema absent Respiratory: lungs diminished to auscultation; without wheezes, rales or rhonchi; on BIPAP Abdomen: soft, non-tender, non-distended Neurological: oriented x 3; normal speech; no focal findings or movement disorder noted Musculoskeletal: no significant deformity or tenderness to palpation Skin: normal coloration Psych: normal mood and affect Associated attestation - Cintia Clifford MD - 11/27/2023 3:27 PM EST [facility]ENDUM I saw and examined the patient independently of the SERENA . Labs, medications, imaging and other studies were reviewed. I agree with history, physical examination findings, medical decision making and the assessment/plan with additions as noted in my documentation below. HPI Enoc Fernandes is a 77 y.o. male patient of Ryley Jeter MD with history of HTN, HLD, DM Type I, CKD, COPD, chronic hypoxemic respiratory failure who presented to [facility] with respiratory distress . Physical Examination General Appearance: alert; acutely ill appearing; in mild acute distress HEENT: Head- normocephalic; Eyes- EOMI, sclera anicteric; Ears- hearing intact; Nose- no nasal discharge; Throat- mucous membranes moist Cardiovascular: regular rate and rhythm; normal S1, S2; no murmurs, rubs, clicks or gallops; no peripheral edema Respiratory: lungs clear to auscultation; without wheezes, rales or rhonchi; on BIPAP Abdomen: soft, non-tender, non-distended; positive bowel sounds Neurological: oriented x 3; normal speech; no focal findings or movement disorder noted Musculoskeletal: no significant deformity or tenderness to palpation Skin: normal coloration; no obvious rashes, lesions or skin breakdown Psych: normal mood and affect Assessment/Plan Acute hypoxic respiratory failure Pneumonia CHF NSTEMI History of COVID-19 infection -Continue BiPAP -Continue IV Lasix, check I's and O's, Daily weights -continue IV ceftriaxone and IV azithromycin -Patient tested negative for COVID on respiratory viral panel but tested positive on COVID swab -Probably patient is no active COVID -Appreciate ID input documented in this encounter [facility] 11-26-2023 Emergency department Note Associated Order(s): Critical Care HPI Chief Complaint Patient presents with Respiratory Distress Pt comes in for difficulty breathing. Pt states that he was dx with a viral lung infection 1 wk ago and placed on a steroid. Pt had covid 1 month ago and was admitted for 1 wk at this facility. 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 EMS reports an O2 level in the low 80s on arrival. Pt was placed on Cpap by them. Pt was 88% on room air in the room. Pt placed on Bipap by RT. Pt is sweating and states he is having chest heaviness. 77-year-old male presents with dyspnea and tachypnea via ambulance. states that he was treated for pneumonia 3 weeks ago and has subsequently been seen several times in the office by the attending physician. Patient was put on another antibiotic and seen 2 days ago and started on steroids. Patient states that he has been coughing up some phlegm. Had an episode where he was short of breath today and ambulance showed up and evaluated him. Patient states he had reoccurrence of symptoms several hours ago which progressively worsened so he called an ambulance. Upon arrival here patient is mildly dyspneic and tachypneic. Patient was placed on BiPAP and seems to be doing better. Patient denies any chest pain with symptoms. He is complaining of some moderate diaphoresis over the last several days. No nausea or vomiting. Patient minimally improved on BiPAP. Patient was given IV antibiotics including Zosyn and vancomycin. Patient's initial troponin was quite elevated over 1999 with a repeat over 3000. I did ask the patient if he had a chief of pediatric urology and he said yes. Patient sees Dr. Grigsby at [facility] and is scheduled to have a stress test next week. Patient has denied any chest pain his entire time here. I did speak to the chief of pediatric urology on-call Dr. Parker and she agreed with a dose of IV Lasix and starting the patient on heparin which will be done. Patient is improved at present but we will continue to monitor the patient until a bed becomes available at [facility]. The patient has been accepted by the hospitalist . Patient has remained stable and has been reassessed several times by myself. Patient has not voided since given the Lasix. We do have a bed and patient will be transferred. Patient is critical but stable upon transfer. Third troponin will be obtained. 120 minutes critical care time. History provided by: Patient and spouse No data recorded Patient History Past Medical History: Diagnosis Date Diabetes ([facility]) History reviewed. No pertinent surgical history. Family History Family history unknown: Yes Social History Tobacco Use Smoking status: Every Day Types: Cigarettes Smokeless tobacco: Never Substance Use Topics Alcohol use: Never Drug use: Never Physical Exam ED Triage Vitals Temperature Heart Rate Respirations BP 11/26/23212111/26/23212111/26/23212111/26/232121 36.2 C (97.1 F) (!) 110 (!) 30 123/74 Pulse Ox Temp Source Heart Rate Source Patient Position 11/26/23212111/26/23212111/26/23212111/26/232121 100 % Temporal Monitor Sitting BP Location FiO2 (%) 11/26/23212111/26/232124 Right arm 40 % Physical Exam Vitals and nursing note reviewed. Constitutional: General: He is not in acute distress. Appearance: He is well-developed. HENT: Head: Normocephalic and atraumatic. Eyes: Conjunctiva/sclera: Conjunctivae normal. Cardiovascular: Rate and Rhythm: Normal rate and regular rhythm. Heart sounds: No murmur heard. Pulmonary: Effort: Pulmonary effort is normal. No respiratory distress. Breath sounds: Wheezing and rales present. Abdominal: Palpations: Abdomen is soft. Tenderness: There is no abdominal tenderness. Musculoskeletal: General: No swelling. Cervical back: Neck supple. Right lower leg: Edema present. Left lower leg: Edema present. Skin: General: Skin is warm and dry. Capillary Refill: Capillary refill takes less than 2 seconds. Neurological: Mental Status: He is alert. Psychiatric: Mood and Affect: Mood normal. Labs Reviewed CBC WITH AUTO DIFFERENTIAL - Abnormal Result Value WBC 20.4 (*) nRBC 0.0 RBC 4.00 (*) Hemoglobin 12.2 (*) Hematocrit 38.0 (*) MCV 95 MCH 30.5 MCHC 32.1 RDW 13.8 Platelets 281 Neutrophils % 85.7 Immature Granulocytes %, Automated 0.6 Lymphocytes % 9.8 Monocytes % 3.7 Eosinophils % 0.0 Basophils % 0.2 Neutrophils Absolute 17.49 (*) Immature Granulocytes Absolute, Automated 0.12 Lymphocytes Absolute 2.01 Monocytes Absolute 0.75 Eosinophils Absolute 0.00 Basophils Absolute 0.05 COMPREHENSIVE METABOLIC PANEL - Abnormal Glucose 492 (*) Sodium 135 (*) Potassium 4.5 Chloride 106 Bicarbonate 17 (*) Anion Gap 17 Urea Nitrogen 35 (*) Creatinine 1.96 (*) eGFR 34 (*) Calcium 9.2 Albumin 4.2 Alkaline Phosphatase 101 Total Protein 6.7 AST 53 (*) Bilirubin, Total 0.6 ALT 38 TROPONIN I, HIGH SENSITIVITY - Abnormal Troponin I, High Sensitivity 2,361 (*) Narrative: Less than 99th percentile of [...] performed using a different testing methodology at [facility] than at other [facility]. Direct result comparisons should only be made within the same method. B-TYPE NATRIURETIC PEPTIDE - Abnormal BNP 902 (*) Narrative: <100 pg/mL - Heart failure unlikely 100-299 pg/mL - Intermediate probability of acute heart failure exacerbation. Correlate with clinical context and patient history. >=300 pg/mL - Heart Failure likely. Correlate with clinical context and patient history. BNP testing is performed using different testing methodology at [facility] than at other [facility]. Direct result comparisons should only be made within the same method. TROPONIN I, HIGH SENSITIVITY - Abnormal Troponin I, High Sensitivity 3,473 (*) Narrative: Less than 99th percentile of [...] performed using a different testing methodology at [facility] than at other [facility]. Direct result comparisons should only be made within the same method. LACTATE - Abnormal Lactate 3.8 (*) Narrative: Venipuncture immediately after or during the administration of Metamizole may lead to falsely low results. Testing should be performed immediately prior to Metamizole dosing. LACTATE - Abnormal Lactate 3.2 (*) Narrative: Venipuncture immediately after or during the administration of Metamizole may lead to falsely low results. Testing should be performed immediately prior to Metamizole dosing. MRSA SURVEILLANCE FOR VANCOMYCIN DE-ESCALATION, PCR - Normal MRSA PCR Not Detected Narrative: This assay is an FDA-approved in vitro diagnostic nucleic acid amplification test for the detection of methicillin-resistant Staphylococcus aureus (MRSA) DNA directly from nasal swabs in patients at risk for nasal colonization. MRSA NxG is intended to aid in the prevention and control of MRSA infections in healthcare settings. This assay is NOT intended to diagnose, guide, or monitor treatment for MRSA infections, or provide results of susceptibility to methicillin. A negative result does not preclude MRSA nasal colonization. Test performance has not been evaluated in patients less than two years of age. MAGNESIUM - Normal Magnesium 2.20 APTT - Normal aPTT 38 Narrative: The APTT is no longer used for monitoring Unfractionated Heparin Therapy. For monitoring Heparin Therapy, use the Heparin Assay. PROTIME-INR - Normal Protime 12.3 INR 1.1 BLOOD CULTURE GREEN TOP Extra Tube Hold for add-ons. TROPONIN I, HIGH SENSITIVITY ED Course & MDM ED Course as of 11/27/23 010WedNov 26, 2023 214 Twelve-lead EKG interpreted by myself at 2120 1 sinus tachycardia at 113 2 left axis deviation [address]-T wave changes [MS] 2249 Troponin I, High Sensitivity(!!): 3,473 [MS] ED Course User Index [MS] Ger Aguilera DO Diagnoses as of 11/27/23105 NSTEMI (non-ST elevated myocardial infarction) (CMS/HCC) MADONNA (acute kidney injury) (CMS/HCC) 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) Type 1 diabetes mellitus with other specified complication (CMS/HCC) XR chest 1 view Final Result Pulmonary vascular congestive change and edema and small bilateral pleural effusions. There is asymmetric opacity in the right lower lung concerning for superimposed pneumonia. 10 mm nodular opacity at the left lung base; follow-up dedicated CT chest is recommended to exclude underlying pulmonary nodule. MACRO: None Signed by: Ghassan Tovar 11/26/2023 10:02 PM Dictation workstation: [id number] Medical Decision Making Patient will be transferred in stable condition to [facility] in [place]. Procedure Critical Care Performed by: Ger Aguilera DO Authorized by: Ger Aguilera DO Critical care provider statement: Critical care start time: 11/26/2023 11:17 PM Critical care end time: 11/27/2023 1:17 AM Critical care time was exclusive of: Separately billable procedures and treating other patients Critical care was necessary to treat or prevent imminent or life-threatening deterioration of the following conditions: Cardiac failure and metabolic crisis Critical care was time spent personally by me on the following activities: Discussions with consultants, evaluation of patient's response to treatment, examination of patient, interpretation of cardiac output measurements, obtaining history from patient or surrogate, ordering and performing treatments and interventions, ordering and review of laboratory studies, ordering and review of radiographic studies, pulse oximetry and re-evaluation of patient's condition I assumed direction of critical care for this patient from another provider in my specialty: no Care discussed with: accepting provider at another facility Ger Aguilera DO 11/27/23 0119 documented in this encounter [facility] Work Phone: 11-26-2023 Physician Emergency department Note Associated Order(s): Critical Care HPI Chief Complaint Patient presents with Respiratory Distress Pt comes in for difficulty breathing. Pt states that he was dx with a viral lung infection 1 wk ago and placed on a steroid. Pt had covid 1 month ago and was admitted for 1 wk at this facility. 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 EMS reports an O2 level in the low 80s on arrival. Pt was placed on Cpap by them. Pt was 88% on room air in the room. Pt placed on Bipap by RT. Pt is sweating and states he is having chest heaviness. 77-year-old male presents with dyspnea and tachypnea via ambulance. states that he was treated for pneumonia 3 weeks ago and has subsequently been seen several times in the office by the attending physician. Patient was put on another antibiotic and seen 2 days ago and started on steroids. Patient states that he has been coughing up some phlegm. Had an episode where he was short of breath today and ambulance showed up and evaluated him. Patient states he had reoccurrence of symptoms several hours ago which progressively worsened so he called an ambulance. Upon arrival here patient is mildly dyspneic and tachypneic. Patient was placed on BiPAP and seems to be doing better. Patient denies any chest pain with symptoms. He is complaining of some moderate diaphoresis over the last several days. No nausea or vomiting. Patient minimally improved on BiPAP. Patient was given IV antibiotics including Zosyn and vancomycin. Patient's initial troponin was quite elevated over 2000 with a repeat over 3000. I did ask the patient if he had a chief of pediatric urology and he said yes. Patient sees Dr. Grigsby at [place] and is scheduled to have a stress test next week. Patient has denied any chest pain his entire time here. I did speak to the chief of pediatric urology on-call Dr. Parker and she agreed with a dose of IV Lasix and starting the patient on heparin which will be done. Patient is improved at present but we will continue to monitor the patient until a bed becomes available at [place]. The patient has been accepted by the hospitalist . Patient has remained stable and has been reassessed several times by myself. Patient has not voided since given the Lasix. We do have a bed and patient will be transferred. Patient is critical but stable upon transfer. Third troponin will be obtained. 120 minutes critical care time. History provided by: Patient and spouse No data recorded Patient History Past Medical History: Diagnosis Date Diabetes (CMS/[facility]) History reviewed. No pertinent surgical history. Family History Family history unknown: Yes Social History Tobacco Use Smoking status: Every Day Types: Cigarettes Smokeless tobacco: Never Substance Use Topics Alcohol use: Never Drug use: Never Physical Exam ED Triage Vitals Temperature Heart Rate Respirations BP 11/26/23212111/26/23212111/26/23212111/26/232121 36.2 C (97.1 F) (!) 110 (!) 30 123/74 Pulse Ox Temp Source Heart Rate Source Patient Position 11/26/23212111/26/23212111/26/23212111/26/232121 100 % Temporal Monitor Sitting BP Location FiO2 (%) 11/26/23212111/26/232124 Right arm 40 % Physical Exam Vitals and nursing note reviewed. Constitutional: General: He is not in acute distress. Appearance: He is well-developed. HENT: Head: Normocephalic and atraumatic. Eyes: Conjunctiva/sclera: Conjunctivae normal. Cardiovascular: Rate and Rhythm: Normal rate and regular rhythm. Heart sounds: No murmur heard. Pulmonary: Effort: Pulmonary effort is normal. No respiratory distress. Breath sounds: Wheezing and rales present. Abdominal: Palpations: Abdomen is soft. Tenderness: There is no abdominal tenderness. Musculoskeletal: General: No swelling. Cervical back: Neck supple. Right lower leg: Edema present. Left lower leg: Edema present. Skin: General: Skin is warm and dry. Capillary Refill: Capillary refill takes less than 2 seconds. Neurological: Mental Status: He is alert. Psychiatric: Mood and Affect: Mood normal. Labs Reviewed CBC WITH AUTO DIFFERENTIAL - Abnormal Result Value WBC 20.4 (*) nRBC 0.0 RBC 4.00 (*) Hemoglobin 12.2 (*) Hematocrit 38.0 (*) MCV 95 MCH 30.5 MCHC 32.1 RDW 13.8 Platelets 281 Neutrophils % 85.7 Immature Granulocytes %, Automated 0.6 Lymphocytes % 9.8 Monocytes % 3.7 Eosinophils % 0.0 Basophils % 0.2 Neutrophils Absolute 17.49 (*) Immature Granulocytes Absolute, Automated 0.12 Lymphocytes Absolute 2.01 Monocytes Absolute 0.75 Eosinophils Absolute 0.00 Basophils Absolute 0.05 COMPREHENSIVE METABOLIC PANEL - Abnormal Glucose 492 (*) Sodium 135 (*) Potassium 4.5 Chloride 106 Bicarbonate 17 (*) Anion Gap 17 Urea Nitrogen 35 (*) Creatinine 1.96 (*) eGFR 34 (*) Calcium 9.2 Albumin 4.2 Alkaline Phosphatase 101 Total Protein 6.7 AST 53 (*) Bilirubin, Total 0.6 ALT 38 TROPONIN I, HIGH SENSITIVITY - Abnormal Troponin I, High Sensitivity 2,361 (*) Narrative: Less than 99th percentile of [...] performed using a different testing methodology at [facility] than at other [facility]. Direct result comparisons should only be made within the same method. B-TYPE NATRIURETIC PEPTIDE - Abnormal BNP 902 (*) Narrative: <100 pg/mL - Heart failure unlikely 100-299 pg/mL - Intermediate probability of acute heart failure exacerbation. Correlate with clinical context and patient history. >=300 pg/mL - Heart Failure likely. Correlate with clinical context and patient history. BNP testing is performed using different testing methodology at [facility] than at other [facility]. Direct result comparisons should only be made within the same method. TROPONIN I, HIGH SENSITIVITY - Abnormal Troponin I, High Sensitivity 3,473 (*) Narrative: Less than 99th percentile of [...] performed using a different testing methodology at [facility] than at [facility]. Direct result comparisons should only be made within the same method. LACTATE - Abnormal Lactate 3.8 (*) Narrative: Venipuncture immediately after or during the administration of Metamizole may lead to falsely low results. Testing should be performed immediately prior to Metamizole dosing. LACTATE - Abnormal Lactate 3.2 (*) Narrative: Venipuncture immediately after or during the administration of Metamizole may lead to falsely low results. Testing should be performed immediately prior to Metamizole dosing. MRSA SURVEILLANCE FOR VANCOMYCIN DE-ESCALATION, PCR - Normal MRSA PCR Not Detected Narrative: This assay is an FDA-approved in vitro diagnostic nucleic acid amplification test for the detection of methicillin-resistant Staphylococcus aureus (MRSA) DNA directly from nasal swabs in patients at risk for nasal colonization. MRSA NxG is intended to aid in the prevention and control of MRSA infections in healthcare settings. This assay is NOT intended to diagnose, guide, or monitor treatment for MRSA infections, or provide results of susceptibility to methicillin. A negative result does not preclude MRSA nasal colonization. Test performance has not been evaluated in patients less than two years of age. MAGNESIUM - Normal Magnesium 2.20 APTT - Normal aPTT 38 Narrative: The APTT is no longer used for monitoring Unfractionated Heparin Therapy. For monitoring Heparin Therapy, use the Heparin Assay. PROTIME-INR - Normal Protime 12.3 INR 1.1 BLOOD CULTURE GREEN TOP Extra Tube Hold for add-ons. TROPONIN I, HIGH SENSITIVITY ED Course & MDM ED Course as of 11/27/23 0106 WedNov 26, 2023 2142 Twelve-lead EKG interpreted by myself at 2120 1 sinus tachycardia at 113 2 left axis deviation [address]-T wave changes [MS] 2249 Troponin I, High Sensitivity(!!): 3,473 [MS] ED Course User Index [MS] Ger Aguilera DO Diagnoses as of 11/27/23105 NSTEMI (non-ST elevated myocardial infarction) ([facility]/HCC) MADONNA (acute kidney injury) ([facility]/HCC) 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) Type 1 diabetes mellitus with other specified complication (CMS/HCC) XR chest 1 view Final Result Pulmonary vascular congestive change and edema and small bilateral pleural effusions. There is asymmetric opacity in the right lower lung concerning for superimposed pneumonia. 10 mm nodular opacity at the left lung base; follow-up dedicated CT chest is recommended to exclude underlying pulmonary nodule. MACRO: None Signed by: Ghassan Tovar 11/26/2023 10:02 PM Dictation workstation: [id number] Medical Decision Making Patient will be transferred in stable condition to [facility]. Procedure Critical Care Performed by: Ger Aguilera DO Authorized by: Ger Aguilera DO Critical care provider statement: Critical care start time: 11/26/2023 11:17 PM Critical care end time: 11/27/2023 1:17 AM Critical care time was exclusive of: Separately billable procedures and treating other patients Critical care was necessary to treat or prevent imminent or life-threatening deterioration of the following conditions: Cardiac failure and metabolic crisis Critical care was time spent personally by me on the following activities: Discussions with consultants, evaluation of patient's response to treatment, examination of patient, interpretation of cardiac output measurements, obtaining history from patient or surrogate, ordering and performing treatments and interventions, ordering and review of laboratory studies, ordering and review of radiographic studies, pulse oximetry and re-evaluation of patient's condition I assumed direction of critical care for this patient from another provider in my specialty: no Care discussed with: accepting provider at another facility Ger Aguilera DO 11/27/23 0119 [facility] Work Phone: 11-02-2023 History of Present illness Narrative Patient called and reported that he needs Humalog Rx changed due to formulary change. Rx mailed for Admelog Dollyostar 15 ml, 11 refills. CD documented in this encounter [facility] 10-21-2023 History of Present illness Narrative General Cardiology New Patient Clinic Consult [facility] Heart & Vascular 10/21/2023 Woo Grigsby MD [address] [place] [id number] Patient: Enoc Fernandes Date of : 1945 (77 y.o.) [...] Return in about 6 months (around 04/21/2024). Woo Grigsby MD, [facility] Non-Invasive Cardiology [facility] P:[phone] F:[phone] History of Present Illness: Enoc Fernandes is a 77 y.o. man with a past medical history of insulin-dependent diabetes for 30 years, history of tobacco use, recent COVID infection with systolic dysfunction ejection fraction ranging from 35 to 45% who presents today to community health care. Patient states that he was critically ill and hospitalized at [facility], on BiPAP. Prior to hospitalization patient denied [...] 25.50 Types: Cigarettes Smokeless Tobacco Never Allergies: Pnyzujf-cjw-jfl reductase inhibitors All of the information has [...] ., Disp: , Rfl: [facility] Inhale 2 L/min See Admin Instructions ., [...] PLT 221 06/08/2022 No results found for: CHOL, LDLCALC, LDLDIRECT, TRIG, HDL Lab Results Component Value Date HGBA1C [...] Cholesterol: 156 mg/dL documented in this encounter [facility] 10-21-2023 Instructions Luisa Easley RN - 10/21/2023 8:54 AM EST How to Contact your Care Team: Provider: Dr. Woo Grigsby MD Clinic Nurse: Luisa Easley RN REFILLS: When in need for refills please call your care team or the office at [phone]. Please include medication name, pharmacy name, and [...] questions please contact your care team or [phone]. documented in this encounter [facility] 10-13-2023 Nurse Note Pt IVs removed intact, home O2 has just been delivered and family given instruction by [employer]. Pt leaving by wheelchair to discharge doors, daughter driving. [facility] 10-13-2023 Nurse Note Pt IVs removed [...] to lean on for stability. , Alice ([phone]), called and requesting and update. Update provided. She is Enoc's POA and requests in the event of cardiac he receive CPR and life sustaining medications. She is unsure if she wants him intubated and wants more time to think about it. She reported she will be visiting Enoc today around 11am. At 0545 pt pushed [...] 112, RR 24. documented in this encounter [facility] Work Phone: 10-13-2023 Nurse Note Discharge instructions reviewed with pt. Printed and verbal education given on covid, chf, and home oxygen use/safety. Pt verbalized understanding of all instructions. Walker rx written by dr rivera. Awaiting home oxygen set up. [facility] 10-13-2023 Hospital Discharge instructions Geni Lynne [...] or approved for treating a specific patient. [employer] and its affiliates disclaim any warranty or liability relating to this information or the use thereof. The use of this information is governed by the Terms of Use, available at https://www.[employer]en/k now/aebvqkeq-wysyjnccuufni-ubkbh Copyright 2022 [employer] and its affiliates and/or licensors. All rights [...] or approved for treating a specific patient. [employer] and its affiliates disclaim any warranty or liability relating to this information or the use thereof. The use of this information is governed by the Terms of Use, available at https://www.[employer].com/en/k now/pzwuffuw-lblyaqjgrjgzo-ohxil Copyright 2022 [employer] and its affiliates and/or licensors. All rights [...] Do not take any other prescription drugs, tugi-tpd-lktvafn (OTC) drugs, herbals, or diet aids without [...] diet are needed? Ask your doctor or bandage maker what diet is best for you. The [...] or approved for treating a specific patient. [employer] and its affiliates disclaim any warranty or liability relating to this information or the use thereof. The use of this information is governed by the Terms of Use, available at https://www.[employer].com/en/k now/gvioslle-sftyhandytsse-liztq Copyright 2022 [employer]. and its affiliates and/or licensors. All rights reserved. documented in this encounter [facility] Work Phone: 10-13-2023 Miscellaneous Notes PATIENT: ENOC FERNANDES : 1945 ADMIT DATE: 10/11/2023 1:08 AM DISCH DATE: RESPONDING PROVIDER #: [id number] PROVIDER RESPONSE TEXT: Sepsis with associated respiratory [...] hypoxia], hypertensive emergency, hyperglycemia, and elevated troponin. [employer] consult documents Acute hypoxemic respiratory failure. Treatment: BiPAP initially then O2 5 liters, [...] on 10/13/2023 8:43 AM Electronically signed by: VERA RIVERA MD 10/13/2023 3:05 PM The patient's [...] with current management. documented in this encounter [facility] Work Phone: 10-13-2023 Note Formatting of this n ote might be different from the original. PATIENT: ENOC FERNANDES : 1945 ADMIT DATE: 10/11/2023 1:08 AM DISCH DATE: RESPONDING PROVIDER #: [id number] PROVIDER RESPONSE TEXT: Sepsis with associated respiratory [...] hypoxia], hypertensive emergency, hyperglycemia, and elevated troponin. [employer] consult documents Acute hypoxemic respiratory failure. Treatment: BiPAP initially then O2 5 liters, [...] on 10/13/2023 8:43 AM Electronically signed by: VERA RIVERA MD 10/13/2023 3:05 PM [facility] Work Phone: 10-13-2023 History of Present illness [...] Physical Therapy Physical Therapy Evaluation Patient Name: Enoc Fernandes Today's Date: 10/13/2023 Time Calculation Start [...] Present: No Co-Treatment: OT (co-eval with OT Moira to maximize safety while addressing discipline specific [...] Prior Function Per Pt/Caregiver Report Level of [place]: Independent with ADLs and functional transfers, Independent [...] length Comments/Distance (ft) 1: 88ft Outcome Measures: [facility] Basic Mobility Turning from your back to [...] Goal 1 Start: 10/13/23 Expected End: 10/26/23 Enoc Fernandes will be independent with bed mobility for supine to and from sitting EOB without use of rail PT Goal 2 Start: 10/13/23 Expected End: 10/26/23 Enoc Fernandes will transfer sit to and from stand and maintain balance indep PT Goal 3 Start: 10/13/23 Expected End: 10/26/23 Enoc Fernandes will ambulate 100 ft level surface, good balance, steady Indep PT Goal 4 Start: 10/13/23 Expected End: 10/26/23 Patient will tolerate 30 min PT session wihtout fatigue Education Documentation No documentation found. Education Comments No comments found. Enoc Fernandes is a 77 y.o. male on [...] [16-27] BP: (123-133)/(70-85) Height: [171.5 cm (5' 7.52)] Weight: [71.7 kg (158 lb 1.1 oz)] [...] is looking pretty good I have asked Korey our respiratory therapist to walk him and [...] antibiotics Steroids can be stopped as well Ayanna Albert DO Occupational Therapy Evaluation Patient Name: Enoc Fernandes Today's Date: 10/13/2023 Time Calculation Start [...] Bathroom Equipment: None Prior Function: Level of [place]: Independent with ADLs and functional transfers, Independent [...] Function: Gross Grasp: Functional Coordination: Functional Outcome Measures:[facility] Daily Activity Putting on and taking off [...] 19 Education Documentation ADL Training, taught by Moira Hobson OT at 10/13/2023 1:05 PM. Learner: [...] He does not currently follow with a St[facility] [employer] Former. Overnight Events: None Objective Data: Last Recorded Vitals: Vitals: 10/12/23 2310 10/13/23 0623 10/13/23 0700 10/13/23 0935 BP: BP Location: Patient Position: Pulse: Resp: Temp: TempSrc: SpO2: 96% 95% 93% Weight: 71.7 kg (158 lb 1.1 oz) Height: 1.715 m (5' 7.52) Last Labs: CBC - 10/13/2023: 4:40 AM 17.8 12.4 153 36.4 CMP - 10/13/2023: 4:40 AM 8.3 6.3 18 --- 0.4 3.2 3.8 13 83 PTT - No results in last year. _ _ _ TROPHS Date/Time Value Ref Range Status 10/11/2023 02:45 AM 354 0 - 20 ng/L Final Comment: Previous result verified on 10/11/2023 0209 on specimen/case [id number] called with component [facility] for procedure Troponin I, High Sensitivity, Initial [...] 13-18 <7.5 7-12 <8.0 0- 6 7.5-8.5 [employer]. Diabetes Care 33(S1), Nov 2009. 02/12/2023 08:57 AM 7.7 % Final Comment: Diagnosis of Diabetes-Adults Non-Diabetic: < or = 5.6% Increased risk for developing diabetes: 5.7-6.4% Diagnostic of diabetes: > or = 6.5% . Monitoring of Diabetes Age (y) Therapeutic Goal (%) Adults: >18 <7.0 Pediatrics: 13-18 <7.5 7-12 <8.0 0- 6 7.5-8.5 [employer]. Diabetes Care 33(S1), Nov 2009. [...] noted 06/21/23 Anthropometrics: Height: 171.5 cm (5' 7.52) Weight: 71.7 kg (158 lb 1.1 oz) BMI (Calculated): 24.38 Weight Change Weight History / % Weight Change: 71.7kg 10/11; 72.1kg 10/08; 71.7kg 06/21; 72.6kg 02/19 Significant Weight Loss: No IBW/kg (Dietitian Calculated): 68.6 kg Percent of IBW: 103 % Adjusted Body Weight (kg): 71.7 kg Energy Needs: Calculated Energy Needs Using Equations Height: 171.5 cm (5' 7.52) Minute Ventilation (L/min): 14.2 L/min Temp: 36.7 [...] Assessment Information (1): baseline creat 1.6-1.9 per associate loan officer; A1C 7.4 09/27, 7.6 8/l Nutrition Diagnosis 2: Inadequate energy intake Diagnosis [...] Transitions will continue to follow. TATIANA Jaime Enoc Fernandes is a 77 y.o. male on [...] and follow this closely Transfer to floor Ayanna Albert DO Subjective Data: Patient reports feeling [...] result verified on 10/11/2023 0209 on specimen/case [id number] called with component [facility] for procedure Troponin I, High Sensitivity, Initial [...] 13-18 <7.5 7-12 <8.0 0- 6 7.5-8.5 [employer]. Diabetes Care 33(S1), Nov 2009. 02/12/2023 08:57 AM 7.7 % Final Comment: Diagnosis of Diabetes-Adults Non-Diabetic: < or = 5.6% Increased risk for developing diabetes: 5.7-6.4% Diagnostic of diabetes: > or = 6.5% . Monitoring of Diabetes Age (y) Therapeutic Goal (%) Adults: >18 <7.0 Pediatrics: 13-18 <7.5 7-12 <8.0 0- 6 7.5-8.5 [employer]. Diabetes Care 33(S1), Nov 2009. [...] Psychiatric: Normal mood and affect Assessment/Plan Mr. Enoc Fernandes is a 77 y.o. every day smoker diabetic male being consulted by the Cardiology team for elevated troponin. Patient with past medical history significant for insulin-dependent diabetes, hypertension, diabetic neuropathy, chronic kidney disease with a baseline creatinine around 1.8, arthritis and smoking. Came to ED [facility] on 10/11/2023 complaining of shortness of [...] to discharge. If not possible, should have [facility] as an outpatient. - Due to reduced [...] Clean;Dry;Occlusive 10/12/23 0800 Number of days: 1 Code Status: Full Code Tyrone Zimmerman MD Enoc Fernandes is a 77 y.o. male on [...] on 10/11/2023 6:18:47 PM Transthoracic Echo (TTE) [place] [address] [phone], TRANSTHORACIC ECHOCARDIOGRAM REPORT Patient Name: ENOC FERNANDES Reading Physician: [id number] Jose Enrique Molina MD Study Date: 10/11/2023 Ordering Provider: [id number] FUADRADHA SCOTTBC MRN/PID: [id number] Fellow: Nurse: Jana See RN Date of /Age: 2 1945 / 77 years Cash Management Associate: Cecilio Gabriel [facility] Gender: M Additional Staff: Height: 170.18 cm Admit Date: Weight: 71.67 kg Admission Status: Inpatient - Routine BSA: 1.83 m2 Department Location: [address]-ICU Blood Pressure: 141 /71 mmHg Study Type: TRANSTHORACIC ECHO (TTE) COMPLETE Diagnosis/ICD: Acute on chronic systolic (congestive) heart failure (CHF)-I50.23 CPT Codes: Echo Complete w Full Doppler-10784 Study Detail: The following Echo studies were [...] LA Area A2C: 16.2 cm2 LA Major Malcolm A4C: 5.3 cm LA Major Malcolm A2C: 5.0 cm LA Volume Index: 23.9 ml/m2 LA Vol A4C: 43.7 ml LA Vol A2C: 43.3 ml LV SYSTOLIC FUNCTION BY 2D PLANIMETRY (MOD): Normal Ranges: EF-A4C View: 45.6 % (>=55%) EF-A2C View: 40.9 % EF-Biplane: 44.2 % AORTIC VALVE: Normal Ranges: LVOT Diameter: 1.80 cm (1.8-2.4cm) RIGHT VENTRICLE: RV Basal 3.49 cm RV Mid 2.45 cm RV Major 7.8 cm [id number] Jose Enrique Molina MD Electronically signed on 10/11/2023 at 9:43:19 AM Final XR chest 1 view Narrative: Interpreted By: Kahlil Fagan, STUDY: XR CHEST 1 VIEW; 10/11/2023 1:30 am INDICATION: Signs/Symptoms:Cough. COMPARISON: Chest radiograph 11/04/2012 ACCESSION NUMBER(S): [id number] ORDERING CLINICIAN: AURY ROUSE FINDINGS: SUPPORT DEVICES: [...] Kahlil Fagan 10/11/2023 1:33 AM Dictation workstation: [id number] Physical Exam Constitutional: Appearance: Normal appearance. HENT: [...] on sliding scale insulin. 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 Oxygen as tolerated, currently liters. PT, OT consult for generalized weakness. Vitamin D, zinc DVT prophylaxis on heparin. CODE STATUS full. Disposition in 24 to 48 hours. Total time spent 35 minutes. Vera Rivera MD 10/11/23 6311 Discharge Planning Living Arrangements Spouse/significant other Support [...] place to sleep or slept in a jail (including now)? N Transportation Needs In the [...] established prior to hospitalization No Spoke with Enoc on the phone do to working remote at this point he does not feel he will need HHC but he may need oxygen. He plans to return home with his at discharge to there 1 story home. He still drives and he ambulates with a cane. No further needs at this time. CT to follow. Consuelo Fischer BSN/RN-TCC documented in this encounter [facility] Work Phone: 10-13-2023 Hospital course Narrative [...] Your Medications These medications were sent to [facility] [address] [address] metoprolol succinate XL 25 mg 24 hr tablet These medications were sent to [facility] [address] [place] [address] Hours: 8 AM to 5:30 Mon-Fri, 8 [...] with home oxygen. 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 Clinically stable. Patient also had elevated troponin secondary due to above seen by cardiology, Dr. De Dios, started on metoprolol, aspirin initially which which can be changed to 81 mg daily. Jaundice and Zetia also were started. Patient also has seen Dr. Albert, associate loan officer for acute on chronic kidney disease secondary [...] Department Center 02/24/2024 1:45 PM Madie Albert, CIGAR HEAD PUNCHER-LAUNCH OPERATOR, [facility] [id number] [facility] Dr. Albert, nephrology in [address] De Dios, cardiology in 2 to 4 weeks. Total discharge time 40 minutes. Vera Rivera MD documented in this encounter [facility] Work Phone: 10-13-2023 Nurse Note Pt is AAO. He is using his call light today when he wants to use the bathroom. He has had loose stools, but less frequent. [facility] Work Phone: 10-12-2023 Nurse Note Pt is alert to situation at this time and able to explain his diagnosis, but still impulsive when moving and unsteady. [facility] Work Phone: 10-12-2023 Nurse Note Pt continues to try and leave the bed and chair without his call light. When asked what he needs or where he wants to go, pt is unable to articulate his motivation except the general desire to move around. Repeated re-education is not working. [facility] Work Phone: 10-12-2023 Nurse Note Answered chair alarm. Pt is becoming increasingly confused and restless in general. He is aware of himself and other people, but is becoming impulsive in getting out of bed or his chair. Pt ambulated to the bathroom, O2 increased to 5L for movement per RT. Pt assisted back to bed, bed alarm activated. [facility] Work Phone: 10-12-2023 Nurse Note Pt is AAO, uses his call light appropriately. Pt currently on RA. Pt c/o weakness in his legs, but is able to sit up at the edge of the bed and walk with a walker to lean on for stability. [facility] Work Phone: 10-12-2023 Plan of care note The patient's goals for the shift include The clinical goals for the shift include Blood sugar will return to normal limits by the end of the shift Over the shift, the patient did not make progress toward the following goals. Barriers to progression include acuteness of illness. Recommendations to address these barriers include repeated re-orientation. [facility] Work Phone: 10-12-2023 Plan of care note The clinical goals for the shift include Blood sugar will return to normal limits by the end of the shift Over the shift, Pt tolerated BIPAP well. No signs of respiratory distress. [facility] 10-11-2023 Consult note Associated Order (s): Inpatient consult to Cardiology Inpatient consult to Cardiology Consult performed by: Tyrone Zimmerman MD Consult ordered by: Praful Pineda MD Reason for consult: elevated troponin History Of Present Illness: Mr. Enoc Fernandes is a 77 y.o. every day smoker diabetic male being consulted by the Cardiology team for elevated troponin. Patient with past medical history significant for insulin-dependent diabetes, hypertension, diabetic neuropathy, chronic kidney disease with a baseline creatinine around 1.8, arthritis and smoking. Came to ED [facility] on 10/11/2023 complaining of shortness of [...] result verified on 10/11/2023 0209 on specimen/case [id number] called with component [facility] for procedure Troponin I, High Sensitivity, Initial [...] 13-18 <7.5 7-12 <8.0 0- 6 7.5-8.5 [employer]. Diabetes Care 33(S1), Nov 2009. 02/12/2023 08:57 AM 7.7 (A) % Final Comment: Diagnosis of Diabetes-Adults Non-Diabetic: < or = 5.6% Increased risk for developing diabetes: 5.7-6.4% Diagnostic of diabetes: > or = 6.5% . Monitoring of Diabetes Age (y) Therapeutic Goal (%) Adults: >18 <7.0 Pediatrics: 13-18 <7.5 7-12 <8.0 0- 6 7.5-8.5 [employer]. Diabetes Care 33(S1), Nov 2009. [...] Family history unknown: Yes Allergies: Prednisone and Adkuchf-wku-hau reductase inhibitors Inpatient Medications: Scheduled medications Medication [...] Psychiatric: Normal mood and affect Assessment/Plan Mr. Enoc Fernandes is a 77 y.o. every day smoker diabetic male being consulted by the Cardiology team for elevated troponin. Patient with past medical history significant for insulin-dependent diabetes, hypertension, diabetic neuropathy, chronic kidney disease with a baseline creatinine around 1.8, arthritis and smoking. Came to ED [facility] on 10/11/2023 complaining of shortness of [...] to discharge. If no t possible, have [facility] as an outpatient. - Due to reduced [...] Code Status: Full Code Tyrone Zimmerman MD [facility] Work Phone: 10-11-2023 Consult note Associated Order (s): Inpatient consult to Cardiology Inpatient consult to Cardiology Consult performed by: Tyrone Zimmerman MD Consult ordered by: Praful Pineda MD Reason for consult: elevated troponin History Of Present Illness: Mr. Enoc Fernandes is a 77 y.o. every day smoker diabetic male being consulted by the Cardiology team for elevated troponin. Patient with past medical history significant for insulin-dependent diabetes, hypertension, diabetic neuropathy, chronic kidney disease with a baseline creatinine around 1.8, arthritis and smoking. Came to ED [facility] on 10/11/2023 complaining of shortness of [...] result verified on 10/11/2023 0209 on specimen/case [id number] called with component [facility] for procedure Troponin I, High Sensitivity, Initial [...] 13-18 <7.5 7-12 <8.0 0- 6 7.5-8.5 [employer]. Diabetes Care 33(S1)Nov 2009. 02/12/2023 08:57 AM 7.7 (A) % Final Comment: Diagnosis of Diabetes-Adults Non-Diabetic: < or = 5.6% Increased risk for developing diabetes: 5.7-6.4% Diagnostic of diabetes: > or = 6.5% . Monitoring of Diabetes Age (y) Therapeutic Goal (%) Adults: >18 <7.0 Pediatrics: 13-18 <7.5 7-12 <8.0 0- 6 7.5-8.5 [employer]. Diabetes Care 33(S1), Nov 2009. [...] has a past medical history of Diabetes ([facility]). Past Surgical History: He has no past surgical history on file. Social History: He reports that he has been smoking cigarettes. He has never used smokeless tobacco. He reports that he does not drink alcohol and does not use drugs. Family History: Family History Family history unknown: Yes Allergies: Prednisone and Xnhcrgo-myf-mjg reductase inhibitors Inpatient Medications: Scheduled medications Medication [...] Psychiatric: Normal mood and affect Assessment/Plan Mr. Enoc Fernandes is a 77 y.o. every day smoker diabetic male being consulted by the Cardiology team for elevated troponin. Patient with past medical history significant for insulin-dependent diabetes, hypertension, diabetic neuropathy, chronic kidney disease with a baseline creatinine around 1.8, arthritis and smoking. Came to ED [facility] on 10/11/2023 complaining of shortness of [...] to discharge. If no t possible, have [facility] as an outpatient. - Due to reduced [...] Zimmerman MD Associated Order(s): IP CONSULT TO BIOPHYSICS PROFESSOR Reason For Consult Acute respiratory failure History Of Present Illness Enoc Fernandes is a 77 y.o. male presenting [...] has a past medical history of Diabetes ([facility]). Surgical History He has no past surgical history on file. Social History He reports that he has been smoking cigarettes. He has never used smokeless tobacco. He reports that he does not drink alcohol and does not use drugs. Family History Family History Family history unknown: Yes Allergies Prednisone and Cjitcqu-ktv-puu reductase inhibitors Review of Systems A full [...] [21-35] BP: (117-254)/(70-111) Height: [171.5 cm (5' 7.5)] Weight: [71.7 kg (158 lb)] SpO2: [88 [...] care excluding billable procedures Principal Problem: COVID-19 Ayanna Albert DO documented in this encounter [facility] Work Phone: 12-11-2023 Consult note Associated Order (s): IP CONSULT TO BIOPHYSICS PROFESSOR Reason For Consult Acute respiratory failure History Of Present Illness Enoc Fernandes is a 77 y.o. male presenting [...] has a past medical history of Diabetes ([facility]). Surgical History He has no past surgical history on file. Social History He reports that he has been smoking cigarettes. He has never used smokeless tobacco. He reports that he does not drink alcohol and does not use drugs. Family History Family History Family history unknown: Yes Allergies Prednisone and Zxmmnsl-mxm-lrk reductase inhibitors Review of Systems A full [...] [21-35] BP: (117-254)/(70-111) Height: [171.5 cm (5' 7.5)] Weight: [71.7 kg (158 lb)] SpO2: [88 [...] care excluding billable procedures Principal Problem: COVID-19 Ayanna Albert DO [facility] Work Phone: 10-11-2023 Plan of care note Patient's reviewed. Currently on 5 L of oxygen by nasal cannula, sitting in bed. wants him to be full code with DNI. Continue with current management. [facility] Work Phone: 10-11-2023 Nurse Note , Alice ([phone]), called and requesting and update. Update provided. She is Enoc's POA and requests in the event of cardiac he receive CPR and life sustaining medications. She is unsure if she wants him intubated and wants more time to think about it. She reported she will be visiting Enoc today around 11am. [facility] 10-11-2023 Nurse Note At 0545 pt pushed [...] Patient currently sleeping, HR 112, RR 24. [facility] Work Phone: 10-11-2023 History and physical note History Of Present Illness Enoc Fernandes is a 77 y.o. male Who [...] Family history unknown: Yes Allergies Prednisone and Sgueetp-sxq-waz reductase inhibitors Medications Prior to Admission Medication [...] resp. rate 24, height 1.715 m (5' 7.5), weight 71.7 kg (158 lb), SpO2 97 [...] Straw, Yellow Appearance, Urine Clear Clear Specific Elwin, Urine 1.014 1.005 - 1.035 pH, Urine [...] Signs/Symptoms:Cough. COMPARISON: Chest radiograph 11/04/2012 ACCESSION NUMBER(S): [id number] ORDERING CLINICIAN: AURY ROUSE FINDINGS: SUPPORT DEVICES: [...] Kahlil Fagan 10/11/2023 1:33 AM Dictation workstation: [id number] Assessment/Plan 77-year-old male, smoker, with a past [...] are not fully corrected) Praful Pineda MD [facility] Work Phone: 10-11-2023 History and physical note History Of Present Illness Enoc Fernandes is a 77 y.o. male Who [...] History Past Medical History: Diagnosis Date Diabetes ([facility]) Pertinent medical history also documented in my [...] Family history unknown: Yes Allergies Prednisone and Uccjlkr-hri-jhq reductase inhibitors Medications Prior to Admission Medication [...] resp. rate 24, height 1.715 m (5' 7.5), weight 71.7 kg (158 lb), SpO2 97 [...] Straw, Yellow Appearance, Urine Clear Clear Specific Elwin, Urine 1.014 1.005 - 1.035 pH, Urine [...] Signs/Symptoms:Cough. COMPARISON: Chest radiograph 11/04/2012 ACCESSION NUMBER(S): [id number] ORDERING CLINICIAN: AURY ROUSE FINDINGS: SUPPORT DEVICES: [...] Kahlil Fagan 10/11/2023 1:33 AM Dictation workstation: [id number] Assessment/Plan 77-year-old male, smoker, with a past [...] Praful Pineda MD documented in this encounter [facility] Work Phone: 10-11-2023 Emergency department Note [...] and establish an IV. Patient admits to 18-ynnw-lysw history of cigarette use and currently smokes 1 pack/day. Activity makes his symptoms worse rest helps to some extent. 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 Constitutional: General: He is awake. He is in acute distress. Appearance: Normal appearance. He is overweight. He is ill-appearing. HENT: Head: Normocephalic and atraumatic. Right Ear: External ear normal. Decreased hearing noted. Left Ear: External ear normal. Decreased hearing noted. Nose: Congestion and rhinorrhea present. Rhinorrhea is clear. Mouth/Throat: Lips: [place]. Mouth: Mucous membranes are moist. Pharynx: Oropharynx [...] and has been validated for use at [facility]. Negative results do not preclude COVID-19 [...] in ng/mL Fibrinogen Equivalent Units (FEU). Per blueprint reproducer's instructions for use, a value of less [...] performed using a different testing methodology at [facility] than at other [facility] hospitals. Direct result comparisons should only be made [...] performed using a different testing methodology at [facility] than at other [facility]. Direct result comparisons should only [...] is performed using different testing methodology at [facility] than at other [facility]. Direct result comparisons should only [...] Color, Urine Yellow Appearance, Urine Clear Specific Elwin, Urine 1.014 pH, Urine 5.0 Protein, Urine [...] and has been validated for use at [facility]. Negative results do not preclude Influenza A/B infections, and should not be used as the sole basis for diagnosis, treatment, or other management decisions. If Influenza A/B and RSV PCR results are negative, testing for Parainfluenza virus, Adenovirus and Metapneumovirus is routinely performed for [facility] pediatric oncology and intensive care inpatients, and is available on other patients by placing an add-on request. RSV PCR - Normal RSV PCR Not Detected Narrative: This assay is an FDA-cleared, in vitro diagnostic nucleic acid amplification test for the detection of RSV from nasopharyngeal specimens, and has been validated for use at [facility]. Negative results do not preclude RSV infections, and should not be used as the sole basis for diagnosis, treatment, or other management decisions. If Influenza A/B and RSV PCR results are negative, testing for Parainfluenza virus, Adenovirus and Metapneumovirus is routinely performed for pediatric oncology and intensive care inpatients at [facility], and is available on other patients by [...] Abnormality Status --------- ------ Urinalysis with Reflex M...[[id number]] Abnormal Final result Extra Urine Dey Tube[[id number]] Final result Please view results for these tests on the individual orders. TROPONIN SERIES- (INITIAL, 1 HR) Narrative: The following orders were created for panel order Troponin I Series, High Sensitivity (0, 1 HR). Procedure Abnormality Status --------- ------ Troponin I, High Sensiti...[[id number]] Abnormal Final result Troponin, High Sensitivi...[[id number]] Abnormal Final result Please view results for [...] Kahlil Fagan 10/11/2023 1:33 AM Dictation workstation: [id number] Critical Care Performed by: Aury Rouse DO [...] waves in the anterior precordial leads. The RI interval is 148 ms. QRS durations 82 [...] help a little. documented in this encounter [facility] Work Phone: 10-11-2023 Emergency department Triage note Pt brought in via EMS for fevers and chills. Pt reports being ill for the last 2-3 days. Pt states that he has been having fevers, chills, weakness, fatigue, headaches, body aches with some SOB. Pt was given a breathing treatment in route and states that it did help a little. [facility] Work Phone: 10-11-2023 Physician Emergency department [...] and establish an IV. Patient admits to 40-vduq-rcxr history of cigarette use and currently smokes 1 pack/day. Activity makes his symptoms worse rest helps to some extent. 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 Constitutional: General: He is awake. He is in acute distress. Appearance: Normal appearance. He is overweight. He is ill-appearing. HENT: Head: Normocephalic and atraumatic. Right Ear: External ear normal. Decreased hearing noted. Left Ear: External ear normal. Decreased hearing noted. Nose: Congestion and rhinorrhea present. Rhinorrhea is clear. Mouth/Throat: Lips: [place]. Mouth: Mucous membranes are moist. Pharynx: Oropharynx [...] and has been validated for use at [facility]. Negative results do not preclude COVID-19 [...] in ng/mL Fibrinogen Equivalent Units (FEU). Per blueprint reproducer's instructions for use, a value of less than 500 ng/mL (FEU) may help to exclude DVT or PE in outpatients when the assay is used with a clinical pretest probability assessment.([facility] must utilize and document eCalc 'Wells Score [...] performed using a different testing methodology at [facility] than at other [facility]. Direct result comparisons should only [...] performed using a different testing methodology at [facility] than at other [facility] hospitals. Direct result comparisons should only be made [...] is performed using different testing methodology at [facility] than at other [facility] hospitals. Direct result comparisons should only be made [...] Color, Urine Yellow Appearance, Urine Clear Specific Elwin, Urine 1.014 pH, Urine 5.0 Protein, Urine [...] and has been validated for use at [facility]. Negative results do not preclude Influenza A/B infections, and should not be used as the sole basis for diagnosis, treatment, or other management decisions. If Influenza A/B and RSV PCR results are negative, testing for Parainfluenza virus, Adenovirus and Metapneumovirus is routinely performed for [facility] pediatric oncology and intensive care inpatients, and is available on other patients by placing an add-on request. RSV PCR - Normal RSV PCR Not Detected Narrative: This assay is an FDA-cleared, in vitro diagnostic nucleic acid amplification test for the detection of RSV from nasopharyngeal specimens, and has been validated for use at [facility]. Negative results do not preclude RSV infections, and should not be used as the sole basis for diagnosis, treatment, or other management decisions. If Influenza A/B and RSV PCR results are negative, testing for Parainfluenza virus, Adenovirus and Metapneumovirus is routinely performed for pediatric oncology and intensive care inpatients at [facility], and is available on other patients by [...] Abnormality Status --------- ------ Urinalysis with Reflex M...[[id number]] Abnormal Final result Extra Urine Dey Tube[[id number]] Final result Please view results for these tests on the individual orders. TROPONIN SERIES- (INITIAL, 1 HR) Narrative: The following orders were created for panel order Troponin I Series, High Sensitivity (0, 1 HR). Procedure Abnormality Status --------- ------ Troponin I, High Sensiti...[[id number]] Abnormal Final result Troponin, High Sensitivi...[[id number]] Abnormal Final result Please view results for [...] Kahlil Fagan 10/11/2023 1:33 AM Dictation workstation: [id number] Critical Care Performed by: Aury Rouse DO [...] waves in the anterior precordial leads. The RI interval is 148 ms. QRS durations 82 ms. QTc is 455 ms axis is 39 degrees. Diagnoses as of 10/12/23 0515 COVID-19 Acute respiratory failure with hypoxia (CMS/HCC) Acute congestive heart failure, unspecified heart failure type (CMS/HCC) Pneumonia of both lungs due to infectious organism, unspecified part of lung Aury Rouse DO 10/12/23 0515 [facility] Work Phone: 10-08-2023 History of Present illness Narrative Images from the original note were not included. Patient ID: Enoc Fernandes is a 77 y.o. male Subjective: HPI: Eonc Fernandes presents for follow-up of Type 1 [...] being taken. Patient does not see a javascript ui developer. Eye exam is current. Currently taking: No [...] hypercholesterolemia Type 1 diabetes, under good control Enoc Perryre presents for follow-up of Type 1 [...] bedside for hypoglycemia at night. 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 Had bilat cataract extraction Dr. Lopez. Sees Dr. Browne in [place] every year routinely.Has blurred vision with low [...] started on Flomax; PSA elevated on labs .06.22. He was referred to Dr. Melendez in June 2022. He reports their office called, but he decided not to mess with that right now. Recheck PSA 3.14 Squamous cell Ca removed [...] Call if BG consistently <70 or >250. [phone] Continue to check blood sugar 3 times [...] 10/10/23 8:04 PM documented in this encounter [facility] 08-25-2023 Evaluation + Plan note Associated Problem(s): CKD (chronic kidney disease) Doing well with DM HTN well controlled Sees Endocrinology. Has Type 1 DM On Statin Not on nephrotoxins [facility] Work Phone: 08-25-2023 Miscellaneous Notes Associated Problem(s): CKD (chronic kidney disease) Doing well with DM HTN well controlled Sees Endocrinology. Has Type 1 DM On Statin Not on nephrotoxins documented in this encounter [facility] Work Phone: 08-25-2023 History of Present illness Narrative Subjective States he is feeling well No new issues No complaitns Patient ID: Enoc Fernandes is a 77 y.o. male who [...] Dyslipidemia Nicotine Abuse documented in this encounter [facility] Work Phone: 02-19-2023 History of Present illness Narrative Images from the original note were not included. Patient ID: Enoc Fernandes is a 77 y.o. male Subjective: HPI: Enoc Fernandes presents for follow-up of Type 1 [...] being taken. Patient does not see a javascript ui developer. Eye exam is current. Currently taking: No [...] found. Type 1 diabetes, under good control Enoc Ariela Fernandes presents for follow-up of Type [...] at HS. PLAN: See below. 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 Had bilat cataract extraction Dr. Lopez. Sees Dr. Browne in [place] every year routinely. Nephropathy: Positive Creat: 1.09; [...] started on Flomax; PSA elevated on labs .06.22. He was referred to Dr. Melendez in June 2022. He reports their office called, but he decided not to mess with that right now. Recheck PSA 3.14 Squamous cell Ca removed [...] Call if BG consistently <70 or >250. [phone] Continue to check blood sugar 4 times [...] 02/19/23 10:25 AM documented in this encounter [facility] 10-19-2022 History of Present illness Narrative Images from the original note were not included. Patient ID: Enoc Fernandes is a 76 y.o. male Subjective: HPI: Enoc Fernandes presents for follow-up of Type 1 [...] being taken. Patient does not see a javascript ui developer. Eye exam is current. Currently taking: No [...] Ultra-Fine Jolynn Pen Needle) 32 gauge x Ndle, Use as directed 4x daily DX [...] hypercholesterolemia Type 1 diabetes, under good control Enoc Perryre presents for follow-up of Type 1 [...] Reduce lunch and HS insulin. 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 Had bilat cataract extraction Dr. Lopez. Sees Dr. Browne in [place] every year routinely. Nephropathy: Positive Creat: 1.09; [...] decided not to mess with that right now. 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 [phone] Continue to check blood sugar 4 times [...] 10/19/22 10:25 AM documented in this encounter [facility] 06-19-2022 History of Present illness Narrative Images from the original note were not included. Patient ID: Enoc Fernandes is a 76 y.o. male Subjective: HPI: Enoc Fernandes presents for follow-up of Type 1 [...] being taken. Patient does not see a javascript ui developer. Eye exam is current. Currently taking: No [...] Ultra-Fine Jolynn Pen Needle) 32 gauge x Ndle, Use as directed 4x daily DX [...] and oriented x3 and [facility] Lab Review 06/08/22 *labs reviewed 06/19/22 Hgb [...] PSA Type 1 diabetes, under good control Enoc E Tr presents for follow-up of Type 1 diabetes [...] Reduce lunch and HS insulin. 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 Had bilat cataract extraction Dr. Quick. Sees Dr. Browne in [place] every year routinely. Nephropathy: Positive Creat: 1.09; [...] on Flomax; PSA elevated on labs 8.8.22. Will refer to Dr. Melendez, seen previously [...] Call if BG consistently <70 or >250. [phone] Continue to check blood sugar 4 times [...] 06/19/22 11:20 PM documented in this encounter [facility] 02-13-2022 History of Present illness Narrative Images from the original note were not included. Patient ID: Enoc Fernandes is a 76 y.o. male Subjective: HPI: Enoc Fernandes presents for follow-up of Type 1 [...] being taken. Patient does not see a javascript ui developer. Eye exam is current. Currently taking: No [...] Screen Type 1 diabetes, under good control Enoc Fernandes presents for follow-up of Type 1 [...] Reduce lunch and HS insulin. 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 Had bilat cataract extraction Dr. Lopez. Sees Dr. Browne in [place] every year routinely. Nephropathy: Positive Creat: 1.09; [...] to check stenosis. To be done in [place] office. 2. Education: Reviewed ABCs of diabetes [...] Call if BG consistently <70 or >250. [phone] Continue to check blood sugar 4 times [...] 02/13/22 11:20 PM documented in this encounter [facility] 10-13-2021 History of Present illness Narrative Images from the original note were not included. Patient ID: Enoc Fernandes is a 75 y.o. male Subjective: HPI: Enoc Fernandes presents for follow-up of Type 1 [...] being taken. Patient does not see a javascript ui developer. Eye exam is current. Currently taking: No [...] hypercholesterolemia Type 1 diabetes, under good control Enoc Titus Tr presents for follow-up of Type 1 diabetes Patient is currently managed with: Humalog insulin: 9-10 units at breakfast; 9-10 units at lunch; 12-15 units at supper and Lantus 18 units at bedtime . Most recent Hgb A1c is 7.4%. Reports occasional lows during the day. Typically eats a snack if BG <150 at HS. PLAN: See below. CPM Retinopathy: Negative CLINICAL IMMUNOLOGIST. Exam within last 12 months: yes Date: 10/16/20. Had bilat cataract extraction Dr. Lopez. Sees Dr. Browne in [place] every year routinely. Nephropathy: Negative Creat: 1.08; [...] 163/72 Reports always high in the doctors office. Cardiac: Negative Denies Chest pain or SOB [...] Call if BG consistently <70 or >250. [phone] Continue to check blood sugar 4 times [...] 10/13/21 2:55 PM documented in this encounter [facility] 06-20-2021 History of Present illness Narrative Images from the original note were not included. Patient ID: Enoc Fernandes is a 75 y.o. male Subjective: HPI: Enoc Fernandes presents for follow-up of Type 1 [...] being taken. Patient does not see a javascript ui developer. Eye exam is current. Currently taking: No [...] kg/m Wt Readings from Last 3 Encounters: 08/20/21 75.5 kg (166 lb 8 oz) 02/18/21 [...] hypercholesterolemia Type 1 diabetes, under good control Enoc Fernandes presents for follow-up of Type 1 diabetes Patient is currently managed with: Humalog insulin: 9 units at breakfast; 9 units at lunch; 12 units at supper and Lantus 18 units at bedtime . Most recent Hgb A1c is 7.5%. Reports occasional lows during the day. Typically eats a snack if BG <150 at HS. PLAN: See below. CPM Retinopathy: Negative CLINICAL IMMUNOLOGIST. Exam within last 12 months: yes Date: 10/16/20. Had bilat cataract extraction Dr. Lopez. Sees Dr. Browne in [place] every year routinely. Nephropathy: Negative Creat: 1.08; [...] 163/68 Reports always high in the doctors office. Cardiac: Negative Denies Chest pain or SOB [...] Call if BG consistently <70 or >250. [phone] Continue to check blood sugar 4 times [...] 06/20/21 2:55 PM documented in this encounter [facility] 02-18-2021 History of Present illness Narrative Patient ID: Enoc Fernandes is a 75 y.o. male Subjective: HPI: Enoc Fernandes presents for follow-up of Type 1 [...] being taken. Patient does not see a javascript ui developer. Eye exam is current. Currently taking: No [...] nightly . pen needle, diabetic (BD Ultra-Fine Ojlynn Pen Needle) 32 gauge x 5/32 Ndle, [...] strips Type 1 diabetes, under good control Enoc Fernandes presents for follow-up of Type 1 diabetes Patient is currently managed with: Humalog insulin:9 units at breakfast; 9 units at lunch; 12 units at supper and Lantus 18 units at bedtime . Most recent Hgb A1c is 7.4%. Reports occasional lows during the day. Typically eats a snack if BG <150 at HS. PLAN: See below. CPM Retinopathy: Negative CLINICAL IMMUNOLOGIST. Exam within last 12 months: yes Date: 10/16/20. Had bilat cataract extraction Dr. Lopez. Sees Dr. Browne in [place] every year routinely. Nephropathy: Negative Creat: 1.08; [...] 194/70 Reports always high in the doctors office. Cardiac: Negative Denies Chest pain or SOB [...] Call if BG consistently <70 or >250. [phone] Continue to check blood sugar 4 times [...] 02/18/21 9:57 PM [facility] Diagnosis Type 1 diabetes mellitus with diabetic polyneuropathy (HCC)- Primary Bilateral carotid artery stenosis Occlusion and stenosis of carotid artery without mention of cerebral infarction Essential hypertension Unspecified essential hypertension Type 1 [...] diabetic neuropathy (CMS/HCC) documented in this encounter [facility] Work Phone: Evaluation note* Diagnosis Type [...] heart failure (CMS/HCC) documented in this encounter [facility] Work Phone: Evaluation note* Diagnosis 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- Primary Dyslipidemia Other and unspecified hyperlipidemia Congestive heart failure, unspecified HF chronicity, unspecified heart failure type (HCC) [facility] Evaluation note* Diagnosis NSTEMI (non-ST elevated myocardial infarction) ([facility])- Primary Acute myocardial infarction, subendocardial infarction, episode of care unspecified MADONNA (acute kidney injury) ([facility]) 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) Type 1 diabetes mellitus with other specified complication ([facility]) documented in this encounter [facility] Work Phone: Evaluation note* Diagnosis NSTEMI (non-ST elevated myocardial infarction) (HCC)- Primary Acute myocardial infarction, subendocardial infarction, episode of care unspecified Severe sepsis (HCC) Community acquired pneumonia, unspecified laterality Acute on chronic respiratory failure with hypoxemia (HCC) Non-ST elevated myocardial infarction (non-STEMI) (HCC) Acute myocardial infarction, subendocardial infarction, episode of care unspecified Acute on chronic systolic (congestive) heart failure (HCC) 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) [facility] Diagnosis Cardiovascular stress test abnormal- Primary Dyslipidemia Other and unspecified hyperlipidemia 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 Primary hypertension Unspecified essential hypertension [facility] Diagnosis 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)- Primary Pure hypercholesterolemia Essential hypertension Unspecified essential hypertension [facility] Diagnosis Stage 3b chronic kidney disease (Multi)- Primary Acute on chronic systolic (congestive) heart failure (Multi) Type 1 diabetes mellitus with diabetic neuropathy (Multi) documented in this encounter [facility] Work Phone: Evaluation note* Diagnosis 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) [facility] Diagnosis 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- Primary Primary hypertension Unspecified essential hypertension Dyslipidemia Other and unspecified hyperlipidemia [facility] Diagnosis 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)- Primary Pure hypercholesterolemia Essential hypertension Unspecified essential hypertension [facility] Diagnosis Stage 3b chronic kidney disease (Multi)- Primary Essential hypertension Unspecified essential hypertension Pure hypercholesterolemia Type 1 diabetes mellitus with diabetic neuropathy Stage 3b chronic kidney disease (Multi)- Primary Acute on chronic systolic (congestive) heart failure Type 1 diabetes mellitus with diabetic neuropathy Stage 3b chronic kidney disease (Multi)- Primary Essential hypertension Unspecified essential hypertension Type 1 diabetes mellitus with diabetic neuropathy documented in this encounter [facility] Work Phone: Evaluation note* Diagnosis 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)- Primary [facility] Diagnosis Claudication in peripheral vascular disease (HCC)- Primary Encounter for examination of blood pressure with abnormal findings 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 Congestive heart failure, unspecified HF chronicity, unspecified heart failure type (HCC) Hypertensive emergency [facility] Hyperglycemia- Primary Other abnormal glucose Cardiovascular stress test abnormal Fatigue, unspecified type SOB (shortness of breath) Shortness of breath Pulmonary emphysema, unspecified emphysema type (HCC) Fatigue Other malaise and fatigue Cardiovascular stress test abnormal SOB (shortness of breath) Shortness of breath Cardiovascular stress test abnormal Fatigue, unspecified type SOB (shortness of breath) Shortness of breath [facility] Diagnosis 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)- Primary [facility] Diagnosis Bilateral carotid artery stenosis- Primary Occlusion and stenosis of carotid artery without mention of cerebral infarction [facility] Coronary 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[place] coronary artery of [place] heart without angina pectoris- Primary [facility] Diagnosis Bilateral carotid artery stenosis Occlusion and stenosis of carotid artery without mention of cerebral infarction [facility] Diagnosis Bilateral carotid artery stenosis Occlusion and stenosis of carotid artery without mention of cerebral infarction 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)- Primary Pure hypercholesterolemia Essential hypertension Unspecified essential hypertension [facility] Diagnosis Bilateral carotid artery stenosis Occlusion and stenosis of carotid artery without mention of cerebral infarction Coronary 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[place] coronary artery of [place] heart without angina pectoris- Primary Claudication in peripheral vascular disease Bilateral carotid artery stenosis Occlusion and stenosis of carotid artery without mention of cerebral infarction [facility] Diagnosis Bilateral carotid artery stenosis Occlusion and stenosis of carotid artery without mention of cerebral infarction 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) [facility] Diagnosis Bilateral carotid artery stenosis Occlusion and stenosis of carotid artery without mention of cerebral infarction 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)- Primary [facility] Diagnosis Bilateral carotid artery stenosis Occlusion and stenosis of carotid artery without mention of cerebral infarction 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)- Primary [facility] Diagnosis Stage 3b chronic kidney disease (Multi)- Primary Essential hypertension Unspecified essential hypertension Pure hypercholesterolemia Type 1 diabetes mellitus with diabetic neuropathy Stage 3b chronic kidney disease (Multi)- Primary Acute on chronic systolic (congestive) heart failure Type 1 diabetes mellitus with diabetic neuropathy Stage 3b chronic kidney disease (Multi)- Primary Essential hypertension Unspecified essential hypertension Pure hypercholesterolemia Type 1 diabetes mellitus with diabetic neuropathy documented in this encounter [facility] Work Phone: Evaluation note* Diagnosis Bilateral carotid artery stenosis Occlusion and stenosis of carotid artery without mention of cerebral infarction Coronary 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[place] coronary artery of [place] heart without angina pectoris- Primary NSTEMI (non-ST elevated myocardial infarction) (HCC) Acute myocardial infarction, subendocardial infarction, episode of care unspecified Hospital discharge follow-up Other follow-up examination [facility] Diagnosis Bilateral carotid artery stenosis Occlusion and stenosis of carotid artery without mention of cerebral infarction 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)- Primary Pure hypercholesterolemia Essential hypertension Unspecified essential hypertension [facility]* At least a 5 yr HX of LBP (previous HX of sciatica). No recent film studies have been done. He willbe a low fall risk. The patient will continue his therapy at [place]. Physical findings include limited trunk ROM with discomfort. Continue with trunk mech trng, STW (needling), and core stability/ROM exercises. * Clinical Presentation: Stable and/or uncomplicated characteristics. * Level of Complexity: low * Problem List: activity limitations, ADLs/IADLs/self care skills, decreased functional level, decreased knowledge of HEP, decreased knowledge of precautions, fall risk, gait/locomotion, pain, range ofmotion/joint mobility and strength. [facility] Work Phone: History of Present illness NarrativePatient identified by name and date of . Patient demonstrated good understanding of exercises and stretching with cues to complete after instruction. He presented with palpable tension in gluts and QL and paraspinals that responded well to STW.[facility] Work Phone: History of Present illness Narrative* [...] with relief noted d/t tightness in LB. [facility] [place] Work Phone: History of Present illness Narrative* Tightness along the ITB and QL continues. * Palpable spams in both regions with with STW. * Fair trunk flexibility with SKTC. [facility] [place] Work Phone: History of Present illness NarrativePatient identified by name and date of . Patient was able to progress with several exercises this date with addition of teri disc and focus on maintain upright posture. He presented with increased muscle tension in IT band and QL this date.[facility] [place] Work Phone: History of Present illness NarrativePatient identified by name and date of . Added IT band stretch this date and instructed for HEP due to palpable tension. Reviewed importance of HEP even if he feels sore to increased with ROM and decrease with muscle tension, he verbalized good understanding. Patient continues to present with palpable muscle tension/restrictions in his piriforms.[facility] [employer] Work Phone: History of Present illness NarrativePatient identified by name and date of . Added IT band stretch this date and instructed for HEP due to palpable tension. Reviewed importance of HEP even if he feels sore to increased with ROM and decrease with muscle tension, he verbalized good understanding. Patient continues to present with palpable muscle tension/restrictions in his piriforms. [facility] Work Phone: History of Present illness NarrativePatient [...] and possible inclusion of trigger point dry needling. [facility] Work Phone: History of Present illness NarrativeSTW [...] not covering a TENS unit for the patient.[facility] Work Phone: reason for referral (narrative)* Consultation (Routine) - Authorized Specialty Diagnoses / Procedures Referred By Jimy t Referred To Contact Nephrology Diagnoses Stage 3b chronic kidney disease ([facility]) Procedures Follow Up In Nephrology Ayanna Albert DO [address] [place] [address] Referral ID Status Reason Start Date Expiration Date V isits Requested Visits Authorized [id number] Authorized 08/25/2023 08/24/2024 1 1 [facility] Work Phone: Reason for referral (narrative)* Consultation (Routine) - Authorized Specialty Diagnoses / Procedures Referred By Contac t Referred To Contact Nephrology Diagnoses Stage 3b chronic kidney disease (Multi) Procedures Follow Up In Nephrology Madie Albert APRN-CNP, JOIE [address] [place] [address] Referral ID Status Reason Start Date Expiration Date V isits Requested Visits Authorized [id number] Authorized 02/24/2024 02/23/2025 1 1 [facility] Work Phone: Retcit for referral (narrative)No reason for referral information availableWMercy [facility] Work Phone: Reason for visit Narrative* Initial Evaluation . lumbar DDD. * Referred by: [facility] Work Phone: Reason for visit Narrative* Auth/Cert Specialty Diagnoses / Procedures Referred By Contac t Referred To Contact Diagnoses NSTEMI (non-ST elevated myocardial infarction) (HCC) NSTEMI Referral ID Status Reason Start Date Expiration Date Visits Re quested Visits Authorized [id number] [facility] 1 [facility] Auth/Cert (Routine) Specialty Diagnoses / Procedures Referred By Contac t Referred To Contact Diagnoses Cardiovascular stress test abnormal Fatigue, unspecified type SOB (shortness of breath) Cardiovascular stress test abnormal [R94.39] Fatigue, unspecified type [R53.83] SOB (shortness of breath) [R06.02] Procedures Left Heart Cath Referral ID Status Reason Start Date Expiration Date Visits Re quested Visits Authorized [id number] 1 1 [facility] Instructions * Patient Instructions - Alexandra Givens [...] Parker PA-C - 06/17/2017 11:43 AM EDT Enoc Ariela Fernandes is on: Humalog 9 units at [...] further adjustments in this encounter* Patient Instructions* Keelye Patton CNP - 07/17/2019 11:08 AM EDT [...] FoundNo Family History Records Found Advance Directives No Advanced Directives Records FoundDocuments on File Type Date Recorded Patient Back Maker Expl anation Advance Directives and Living Will Documents on File Type Date Recorded Patient Back Maker Expl anation Advance Directives and Livin g Will 10/18/2020 1:33 PM Documents on File Type Date Recorded Patient Back Maker Expl anation Advance Directives and Livin g Will 10/18/2020 1:33 PM Documents on File Type Date Recorded Patient Back Maker Expl anation Advance Directives and Livin g Will 02/21/2021 3:38 PM Documents on File Type Date Recorded Patient Back Maker Expl anation Advance Directives and Livin g Will 02/21/2021 3:38 PM Latest Code Status on File Code Status Date Activated Date Inactivated Comments Full Code 10/11/2023 5:02 AM Question Answer Comments Plan of Care: Code Status Discussion Completed Decision Maker: Patient Advance Directive Response Recorded Date/ Time Living Will Yes August 05 7:59am Power of Screen Vent Binder Yes August 05 7:59am Latest Code Status on File Code Status Date Activated Date Inactivated Comments Full Code 10/11/2023 5:02 AM Question Answer Comments Plan of Care: Code Status Discussion Completed Decision Maker: Patient Latest Code Status on File Code Status Date Activated Date Inactivated Comments Full Code 11/27/2023 3:12 AM 12/01/2023 11:30 PM Latest Code Status on File Code Status Date Activated Date Inactivated Comments Full Code 11/27/2023 3:12 AM 12/01/2023 11:30 PM Date Activated Date Inactivated Comments 11/27/2023 3:12 AM 12/01/2023 11:30 PM Date Activated Date Inactivated Comments 10/11/2023 5:02 AM Question Answer Comments Plan of Care: Code Status Discussion Completed Decision Maker: Patient Date Activated Date Inactivated Comments 11/27/2023 3:12 AM 12/01/2023 11:30 PM Date Activated Date Inactivated Comments 10/27/2024 9:43 PM 10/28/2024 5:40 PM Date Activated Date Inactivated Comments 10/27/2024 5:01 PM 10/27/2024 9:43 PM Date Activated Date Inactivated Comments 10/27/2024 4:53 PM 10/27/2024 5:01 PM Date Activated Date Inactivated Comments 10/27/2024 6:09 AM 10/27/2024 9:58 AM Date Activated Date Inactivated Comments 11/27/2023 3:12 AM 12/01/2023 11:30 PM Date Activated Date Inactivated Comments 10/27/2024 9:43 PM 10/28/2024 5:40 PM Date Activated Date Inactivated Comments 10/27/2024 5:01 PM 10/27/2024 9:43 PM Date Activated Date Inactivated Comments 10/27/2024 4:53 PM 10/27/2024 5:01 PM Date Activated Date Inactivated Comments 10/27/2024 6:09 AM 10/27/2024 9:58 AM Date Activated Date Inactivated Comments 11/27/2023 3:12 AM 12/01/2023 11:30 PM Documents on File Type Date Recorded Patient Back Maker Expl anation Advance Directives and Livin g Will 03/02/2025 4:36 PM Date Activated Date Inactivated Comments 02/28/2025 5:29 AM 03/05/2025 1:45 PM Date Activated Date Inactivated Comments 10/27/2024 9:43 PM 10/28/2024 5:40 PM Date Activated Date Inactivated Comments 10/27/2024 5:01 PM 10/27/2024 9:43 PM Date Activated Date Inactivated Comments 10/27/2024 4:53 PM 10/27/2024 5:01 PM Date Activated Date Inactivated Comments 10/27/2024 6:09 AM 10/27/2024 9:58 AM Documents on File Type Date Recorded Patient Back Maker Expl anation Advance Directives and Livin g Will 03/02/2025 4:36 PM Date Activated Date Inactivated Comments 02/28/2025 5:29 AM 03/05/2025 1:45 PM Date Activated Date Inactivated Comments 10/27/2024 9:43 PM 10/28/2024 5:40 PM Date Activated Date Inactivated Comments 10/27/2024 5:01 PM 10/27/2024 9:43 PM Date Activated Date Inactivated Comments 10/27/2024 4:53 PM 10/27/2024 5:01 PM Date Activated Date Inactivated Comments 10/27/2024 6:09 AM 10/27/2024 9:58 AM History of Present Illness * Keeley Patton, TRISTAN - 11/11/2018 8:11 AM EST Formatting of this note may be different from the original. Patient ID: Enoc Fernandes is a 72 y.o. male Subjective: HPI: Enoc Fernandes presents for follow-up of Type 1 diabetes The initial diagnosis of diabetes was [id number] years ago in 1994. Disease course has [...] being taken. Patient does not see a javascript ui developer. Eye exam is current. Patient with a [...] Microalbumin/Creatinine Type 1 diabetes, under good control Enoc Fernandes presents for follow-up of Type 1 [...] blood sugar though. PLAN: CPM. 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 Exam within last 12 months: yes Date: 08/2018 . Had bilat cataract extraction Dr. Lopez. Sees Dr. Browne in [place] every year routinely. Nephropathy: Negative Creat: 1.2, [...] Call if BG consistently <70 or >250. [phone] Continue to check blood sugar 4 times [...] different from the original. Subjective: Patient ID: Enoc Fernandes is a 71 y.o. male. Diabetes [...] being taken. He does not see a javascript ui developer.Eye exam is current (Jun 16). The following [...] Assessment/Plan: Type 1 diabetes, under fair control Enoc Fernandes presents for follow-up of Type 1 diabetes Patient is currently managed with: Humaloginsulin: 9 units at breakfast; 9 units at lunch; 14 units at supper and Levemir insulin: 20 units at bedtime . Most recent Hgb A1c was 8.2 down 9.1% on 05/07/16. Blood sugars reviewed PLAN: Enoc Fernandes is on: Humalog 9 units at [...] between apt for further adjustments Retinopathy: Negative CLINICAL IMMUNOLOGIST. Exam within last 12 months: yes Date: [...] Last CBC-WBC8.2/ Hgb- 14.6/ Hct- 44.1/ Plt [id number] Problem List Items Addressed This Visit Endocrine Type I diabetes mellitus with neurological manifestations (HCC) - Primary Relevant Orders Hemoglobin A1c Basic Metabolic Panel Cardiovascular and Mediastinum Essential hypertension Other Pure hypercholesterolemia in this encounter* Keeley Patton, LAUNCH OPERATOR - 07/17/2019 11:00 AM EDT Patient ID: Enoc Fernandes is a 73 y.o. male Subjective: HPI: Enoc Fernandes presents for follow-up of Type 1 diabetes The initial diagnosis of diabetes was [id number] years ago in 1994. Disease course has [...] being taken. Patient does not see a javascript ui developer. Eye exam is current. Currently taking: No [...] Panel Type 1 diabetes, under good control Enoc Ariela Fernandes presents for follow-up of Type [...] the morning. PLAN: See below Retinopathy: Negative CLINICAL IMMUNOLOGIST. Exam within last 12 months: yes Date: 08/2018- patient due next month for updated exam Had bilat cataract extraction Dr. Lopez. Sees Dr. Browne in [place] every year routinely. Nephropathy: Negative Creat: 1.0, [...] to bedtime appear to be typically less [id number] and usually less than 180. He was [...] Call if BG consistently <70 or >250. [phone] Continue to check blood sugar 4 times [...] - 11/16/2019 10:44 AM EST Patient ID: Enoc Fernandes is a 73 y.o. male Subjective: HPI: Eonc Fernandes presents for follow-up of Type 1 diabetes The initial diagnosis of diabetes was [id number] years ago in 1994. Disease course has [...] being taken. Patient does not see a javascript ui developer. Eye exam is current. Currently taking: No [...] hypercholesterolemia Type 1 diabetes, under good control Enoc Fernandes presents for follow-up of Type 1 [...] at HS. PLAN: See below Retinopathy: Negative CLINICAL IMMUNOLOGIST. Exam within last 12 months: yes Date: 08/2018- patient due next month for updated exam Had bilat cataract extraction Dr. Lopez. Sees Dr. Browne in [place] every year routinely. Nephropathy: Negative Creat: 1.08; [...] Call if BG consistently <70 or >250. [phone] Continue to check blood sugar 4 times [...] - 06/18/2020 10:04 AM EDT Patient ID: Enoc Fernandes is a 74 y.o. male Subjective: HPI: Enoc Fernandes presents for follow-up of Type 1 [...] being taken. Patient does not see a javascript ui developer. Eye exam is current. Currently taking: No oral hypoglycemic medications Humalog insulin: 10 units at breakfast; 10 units at lunch; 14-15 units at supper Lantus insulin: 18 units at bedtime Outpatient Medications Marked as Taking for the 06/18/20 encounter (Office Visit) with Paty Ortega LAUNCH OPERATOR: amLODIPine (NORVASC) 10 MG tablet, Take 10 [...] hypercholesterolemia Type 1 diabetes, under good control Enoc Fernandes presents for follow-up of Type 1 [...] <150 atHS. PLAN: See below Retinopathy: Negative CLINICAL IMMUNOLOGIST. Exam within last 12 months: yes Date: 09/2019- patient due September 2020for updated exam Had bilat cataract extraction Dr. Lopez. Sees Dr. Browne in [place] every yearroutinely. Nephropathy: Negative Creat: 1.01; eGFR: [...] 172/71 Reports always high in the doctors office. Took BP meds 1 hour before check [...] Call if BG consistently <70 or >250. [phone] Continue to check blood sugar 4 times [...] - 10/18/2020 1:45 PM EST Patient ID: Enoc Fernandes is a 74 y.o. male Subjective: HPI: Enoc Fernandes presents for follow-up of Type 1 [...] being taken. Patient does not see a javascript ui developer. Eye exam is current. Currently taking: No [...] hypercholesterolemia Type 1 diabetes, under good control Enoc Fernandes presents for follow-up of Type 1 [...] <150 atHS. PLAN: See below Retinopathy: Negative CLINICAL IMMUNOLOGIST. Exam within last 12 months: yes Date: 10/16/20. Had bilat cataract extraction Dr. Lopez. Sees Dr. Browne in [place] every year routinely. Nephropathy: Negative Creat: 1.01; [...] 163/69 Reports always high in the doctors office. Cardiac: Negative Denies Chest pain or SOB [...] Call if BG consistently <70 or >250. [phone] Continue to check blood sugar 4 times [...] - 03/13/2019 12:23 PM EDT Patient ID: Enoc Fernandes is a 73 y.o. male Subjective: HPI: Enoc Fernandes presents for follow-up of Type 1 diabetes The initial diagnosis of diabetes was [id number] years ago in 1994. Disease course has [...] being taken. Patient does not see a javascript ui developer. Eye exam is current. Currently taking: No [...] Screen Type 1 diabetes, under good control Enoc Fernandes presents for follow-up of Type 1 [...] same dose of 18 unitsnightly. 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 Exam within last 12 months: yes Date: 08/2018 . Had bilat cataract extraction Dr. Lopez. Sees Dr. Browne in [place] every year routinely. Nephropathy: Negative Creat: 1.0, [...] Call if BG consistently <70 or >250. [phone] Continue to check blood sugar 4 times [...] Procedures Ultrasound doppler carotid Mary Yan MD [address] [place] [address] Status Reason Specialty Diagnoses / Procedures Referre d By Contact Referred To Contact Closed Cardiology Diagnoses Bilateral carotid artery stenosis Procedures Ultrasound doppler carotid Mary Yan MD [address] [place] [address] [place] [address] Specialty Diagnoses / Procedures Referred By Contac t Referred To Contact Urology Diagnoses Elevated PSA Paty Ortega CNP [address] [place] [address] Alvaro Gutierrez MD [address] [place] [phone] Referral ID Status Reason Start Date Expiration Date Visits Requested Visits Authorized [id number] Pending Review Specialty Services Required/Pat ient's Best Interest 06/19/2022 06/19/2023 1 1 Specialty Diagnoses / Procedures Referred By Contac t Referred To Contact Cardiology Diagnoses Bilateral carotid artery stenosis Procedures Ultrasound doppler carotid Paty Ortega CNP [address] [place] [address] Referral ID Status Reason Start Date Expiration Date V isits Requested Visits Authorized [id number] Authorized 10/19/2022 10/19/2023 1 1 Specialty Diagnoses / Procedures Referred By Contac t Referred To Contact Radiology Diagnoses Congestive heart failure, unspecified HF chronicity, unspecified heart failure type (HCC) 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 Procedures NM Myocardial Perfusion Multiple SPECT Day, Woo Loera MD [address] [place] [address] Referral ID Status Reason Start Date Expiration Date V isits Requested Visits Authorized [id number] New Request 10/21/2023 10/20/2024 4 4 Chief Complaint and Reason for Visit Chief Complaint EORDER Chief Complaint EORDER LAB AND XRAY Additional Source Comments (unrecognized sect ion and content) No Status Records FoundNo Status Records FoundNo Status Records FoundNo Status Records FoundNo Status Records FoundNo Status Records FoundNo Status Records FoundNo Status Records FoundNo Status Records FoundNo Status Records FoundNo Status Records FoundNo Status Records Found INFORMATION SOURCE (unrecogn ized section and content) DATE CREATED AUTHOR 04/21/2018 [facility] DATE CREATED AUTHOR AUTHOR'S ORGANIZ ATION 07/05/2019 [facility] DATE CREATED AUTHOR AUTHOR'S ORGANIZ ATION 08/04/2023 [facility] DATE CREATED AUTHOR AUTHOR'S ORGANIZ ATION 08/06/2023 [facility] DATE CREATED AUTHOR AUTHOR'S ORGANIZ ATION 10/13/2023 [facility] DATE CREATED AUTHOR AUTHOR'S ORGANIZ ATION 11/12/2024 [facility] DATE CREATED AUTHOR AUTHOR'S ORGANIZ ATION 02/11/2025 [facility] DATE CREATED AUTHOR AUTHOR'S ORGANIZ ATION 02/27/[address] [facility] DATE CREATED AUTHOR AUTHOR'S ORGANIZ ATION 03/13/2025 [facility] DATE CREATED AUTHOR AUTHOR'S ORGANIZ ATION 03/13/2025 [facility] DATE CREATED AUTHOR AUTHOR'S ORGANIZ ATION 03/30/2025 [facility] DATE CREATED AUTHOR AUTHOR'S ORGANIZ ATION 04/02/2025 [facility] Reason for Visit (unrecogniz ed section and content) Reason Comments Diabetes Mellitus Reason Onset Date Comments Medication Refill 02/18/2021 Reason Comments Diabetes Mellitus Status Reason Specialty Diagnoses / Procedures Referre d By Contact Referred To Contact Closed Cardiology Diagnoses Bilateral carotid artery stenosis Procedures Ultrasound doppler carotid Mary Yan MD [facility] [place] [address] [place] [address] Reason Onset Date Comments Medication Refill 10/08/2021 [...] COVID-19 Procedures No coded services entered Praful Maloney MD [address] [place] [address] [phone] Referral ID Status Reason Start Date Expiration Date Visits Re quested Visits Authorized [id number] 1 1 Reason Comments Initial Visit (Intake) SOBOE Specialty Diagnoses / Procedures Referred By Contac t Referred To Contact Cardiology Diagnoses Congestive heart failure, unspecified HF chronicity, unspecified heart failure type (HCC) Mary Yan MD [address] [place] [address] [place] [address] Referral ID Status Reason Start Date Expiration Date Visits Re quested Visits Authorized [id number] Closed 10/19/2023 10/18/2024 1 1 Reason Comments Respiratory Distress Pt comes in for dif ficulty breathing. Pt states that he was dx with a viral lung infection 1 wk ago and placed on a steroid. Pt had covid 1 month ago and was admitted for 1 wk at this facility. 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 EMS reports an O2 level in the low 80s on arrival. Pt was placed on Cpap by them. Pt was 88% on room air in the room. Pt placed on Bipap by RT. Pt is sweating and states he is having chest heaviness. Reason Onset Date Comments Medication Refill 12/29/2023 Reason Comments Follow-up Pt states no cardiac concerns today Reason Onset Date Comments Medication Refill 01/17/2024 Reason Comments Diabetes Mellitus Gap Closure (Health Maintenance) Diabeti c Eye Exam due on 10/14/2021Urine Microalbumin due on 12/12/2021 Reason Comments Follow-up 6 month ckReview lab s 02/06 Reason Onset Date Comments Medication Refill 03/28/2024 Reason Comments Follow-up 6 mo/ No cardiac sym ptoms Reason Comments Diabetes Mellitus Diabetic Eye Exam du e on 10/14/2021Urine Microalbumin due on 2Diabetic Foot Exam due on 06/21/2024 Reason Comments Follow-up 6 month ckReview lab s Reason Onset Date Comments Medication Refill 09/26/2024 Reason Comments Follow-up Fatigue Shortness of Breath With activity Reason Onset Date Comments Medication Refill 10/23/2024 Reason Onset Date Comments Medication Refill 11/06/2024 Reason Comments Evaluate Specialty Diagnoses / Procedures Referred By Jimy t Referred To Contact Vascular Surgery Diagnoses Bilateral carotid artery stenosis Sandi Phan PA-C [address] [place] [address] Phone: tel: fax: [place] [id number] [place] [address] Phone: tel: Referral ID Status Reason Start Date Expiration Date V isits Requested Visits Authorized [id number] Pending Review 11/07/2024 11/07/2025 1 1 Reason Comments Diabetes Mellitus Diabetic Eye Exam du e on 10/14/2021iabetic Foot Exam due on 06/21/2024 Reason Comments Follow-up Reason Onset Date Comments Medication Refill 11/20/2024 Reason Onset Date Comments Medication Refill 12/08/2024 Reason Onset Date Comments Medication Refill 01/01/2025 Reason Onset Date Comments Letter refaxed 02/14/2025 Reason Onset Date Comments Medication Refill 02/16/2025 Reason Comments Follow-up 6 monthsReview labs Specialty Diagnoses / Procedures Referred By Jimy stacy Referred To Contact Nephrology Diagnoses Stage 3b chronic kidney disease (Multi) Procedures Follow Up In Nephrology Ayanna Albert DO [address] [place] [address] Phone: tel: fax: Referral ID Status Reason Start Date Expiration Date V isits Requested Visits Authorized [id number] Authorized 08/29/2024 08/29/2025 1 1 Reason Comments Shortness of Breath Abnormal Lab BNP Reason Comments Diabetes Mellitus Diabetic Eye Exam du e on 10/14/2021 Reason Onset Date Comments Results 03/27/2025 Lab Care Teams (unrecognized sec tion and content) Rural Sociologist Relationship Specialty Start Date End Date Nancy Mirza MD PCP - General Family Medicine 01/09/16 Rural Sociologist Relationship Specialty Start Date End Date Nancy Mirza MD PCP - General Family Medicine 01/09/16 Rural Sociologist Relationship Specialty Start Date End Date Nancy Mirza MD PCP - General Family Medicine 01/09/16 Rural Sociologist Relationship Specialty Start Date End Date Nancy Mirza MD PCP - General Family Medicine 01/09/16 Rural Sociologist Relationship Specialty Start Date End Date Nancy Mirza MD PCP - General Family Medicine 01/09/16 Rural Sociologist Relationship Specialty Start Date End Date Nancy Mirza MD PCP - General Family Medicine 01/09/16 Rural Sociologist Relationship Specialty Start Date End Date Nancy Mirza MD PCP - General Family Medicine 01/09/16 Rural Sociologist Relationship Specialty Start Date End Date Nancy Mirza MD [address] [place] [address] PCP - General Family Medicine 01/09/16 Rural Sociologist Relationship Specialty Start Date End Date Nancy Mirza MD [address] [place] [address] PCP - General Family Medicine 01/09/16 Rural Sociologist Relationship Specialty Start Date End Date Nancy Mirza MD [address] [place] [address] PCP - General 11/01/18 Rural Sociologist Relationship Specialty Start Date End Date Ryley Jeter MD [address] [place], [place] [address] PCP - General Family Medicine 10/08/23 Rural Sociologist Relationship Specialty Start Date End Date Nancy Mirza MD [address] [facility] [address] PCP - General 11/01/18 Rural Sociologist Relationship Specialty Start Date End Date Ryley Jeter MD [address] [place] [place], [place] [address] PCP - General Family Medicine 10/08/23 Rural Sociologist Relationship Specialty Start Date End Date Ryley Jeter MD [address] [place] [address] PCP - General Family Medicine 10/08/23 Team Status: Active Member Role Status Lizzette Jeter MD Primary Care Provider Active Team Status: Inactive Member Role Status Lizzette Jeter MD Primary Care Provider Active Jana Ferguson CLUB WAITER/WAITRESS, CLUB WAITER/WAITRESS-C Attending Provider Active Team Status: Inactive Member Role Status Dates Ryley Jeter MD Primary Care Provide r, Attending Provider, Referring Provider Active Rural Sociologist Relationship Specialty Start Date End Date Ayanna Albert DO [address] [place] [id number] PCP - [employer] Medicare Advantage PCP 11/01/23 Generic Provider, No Assigned MD [address] [place] [address] PCP - General Internal Medicine 11/26/23 Rural Sociologist Relationship Specialty Start Date End Date Ayanna Albert DO [address] [place] [id number] PCP - [employer] Medicare Advantage PCP 11/01/23 Gerri Amos MD [address] [place] [address] PCP - General Internal Medicine 11/26/23 Rural Sociologist Relationship Specialty Start Date End Date Ryley Jeter MD [address] [place] [address] PCP - General Family Medicine 10/08/23 Rural Sociologist Relationship Specialty Start Date End Date Nancy Mirza MD [address] [place], [place] [id number] PCP - General 11/01/18 11/25/23 Rural Sociologist Relationship Specialty Start Date End Date Ryley Jeter MD [address] [place], [place] [address] PCP - General Family Medicine 10/08/23 Rural Sociologist Relationship Specialty Start Date End Date Ryley Jeter MD [address] [place] [address] PCP - General Family Medicine 10/08/23 Rural Sociologist Relationship Specialty Start Date End Date Ryley Jeter MD [address] [place] [address] PCP - General Family Medicine 10/08/23 Rural Sociologist Relationship Specialty Start Date End Date Ryley Jeter MD [address] [place] [address] PCP - General Family Medicine 10/08/23 Rural Sociologist Relationship Specialty Start Date End Date Ayanna Albert DO [address] [place] [address] PCP - [employer] Medicare Advantage PCP 11/01/23 Generic Provider, No Assigned MD Dor[address] [place] [address] PCP - General Internal Medicine 11/26/23 Rural Sociologist Relationship Specialty Start Date End Date Ryley Jeter MD [address] [place] [address] PCP - General Family Medicine 10/08/23 Rural Sociologist Relationship Specialty Start Date End Date Ayanna Albert DO [address] [place] [phone] PCP - [employer] Medicare Advantage PCP 11/01/23 Generic Provider, No Assigned MD [address] [place] [address] PCP - General Internal Medicine 11/26/23 Rural Sociologist Relationship Specialty Start Date End Date Ryley Jeter MD [address] [place] [address] PCP - General Family Medicine 10/08/23 Rural Sociologist Relationship Specialty Start Date End Date Ryley Jeter MD [address] [place], [place] [address] PCP - General Family Medicine 10/08/23 Rural Sociologist Relationship Specialty Start Date End Date Ryley Jeter MD [address] [place] [address] PCP - General Family Medicine 10/08/23 Rural Sociologist Relationship Specialty Start Date End Date Ryley Jeter MD [address] [place] [address] PCP - General Family Medicine 10/08/23 Rural Sociologist Relationship Specialty Start Date End Date Ryley Jeter MD [address] [place] [address] PCP - General Family Medicine 10/08/23 Rural Sociologist Relationship Specialty Start Date End Date Ryley Jeter MD [address] [place] [address] [place] [address] PCP - General Family Medicine 10/08/23 Rural Sociologist Relationship Specialty Start Date End Date Ryley Jeter MD [address] [place] [address] PCP - General Family Medicine 10/08/23 Rural Sociologist Relationship Specialty Start Date End Date Ryley Jeter MD [address] [place] [address] PCP - General Family Medicine 10/08/23 Kristy Parker MD [address] [place], [place] [address] [place], [place] [address] Consulting Physician Vascular Surgery 11/09/24 Rural Sociologist Relationship Specialty Start Date End Date Ryley Jeter MD [address] [place], [place] [id number] PCP - General Family Medicine 10/08/23 Kristy Parker MD [address] [place] [address] Consulting Physician Vascular Surgery 11/09/24 Rural Sociologist Relationship Specialty Start Date End Date Ryley Jeter MD [address] [place], [place] [address] PCP - General Family Medicine 10/08/23 Kristy Parker MD [address] [place] [address] Consulting Physician Vascular Surgery 11/09/24 Rural Sociologist Relationship Specialty Start Date End Date Ryley Jeter MD [address] [place] [address] PCP - General Family Medicine 10/08/23 Kristy Parker MD [address] [place] [address] Consulting Physician Vascular Surgery 11/09/24 Rural Sociologist Relationship Specialty Start Date End Date Ryley Jeter MD [address] [place], [place] [address] PCP - General Family Medicine 10/08/23 Kristy Parker MD [address] [place] [address] Consulting Physician Vascular Surgery 11/09/24 Team Status: Inactive Member Role Status Dates Ryley Jeter MD Primary Care Provider Active St art: February 06, 2025 End: February 06, 2025 Dr. Kerwin Tamayo MD Attending Provider Activ e Start: February 06, 2025 End: February 06, 2025 Rural Sociologist Relationship Specialty Start Date End Date Ryley Jeter MD [address] [place], [place] [id number] PCP - General Family Medicine 10/08/23 Kristy Parker MD [address] [place] [address] Consulting Physician Vascular Surgery 11/09/24 Rural Sociologist Relationship Specialty Start Date End Date Ryley Jeter MD [address] [place], [place] [address] PCP - General Family Medicine 10/08/23 Kristy Parker MD [address] [facility] [place] [address] Consulting Physician Vascular Surgery 11/09/24 Rural Sociologist Relationship Specialty Start Date End Date Ryley Jeter MD [address] [place], [place] [address] PCP - General Family Medicine 10/08/23 Kristy Parker MD [address] [place] [address] Consulting Physician Vascular Surgery 11/09/24 Rural Sociologist Relationship Specialty Start Date End Date Generic Provider, No Assigned PcpMD PCP - General Internal Medicine 11/26/23 Rural Sociologist Relationship Specialty Start Date End Date Ryley Jeter MD [address] [place], [place] [id number] PCP - General Family Medicine 10/08/23 Kristy Parker MD [address] [place] [address] Consulting Physician Vascular Surgery 11/09/24 Rural Sociologist Relationship Specialty Start Date End Date Ryley Jeter MD [address] [place] [address] PCP - General Family Medicine 10/08/23 Kristy Parker MD [address] [place] [address] Consulting Physician Vascular Surgery 11/09/24 Scheduled Active and Recently Administ ered Medications (unrecognized section and content) Medication Order 10/11/2023 10/12/2023 10/13/2023 albuterol 2.5 mg /3 mL (0.083 %) nebulizer solution 2.5 mg (COMPLETED) 2.5 mg, nebulization, Once, On Wed10/11/23 at 0150, For 1 dose 0203 (Given - Provider: Scarlet Ashford, CUSTOMER SERVICE SUPERVISOR - Comment: albuterol) amLODIPine (Norvasc) tablet 10 mg 10 mg, oral, Daily RT, First dose on Wed10/11/23 at 0700 1001 (Given - Provider: Geni Wall RN) 0621 (Given - Provider: Jody Ball RN) 0954 (Given - Provider: Moody Gorman RN) aspirin chewable tablet 324 mg(Linked Group 1) 324 mg, oral, Daily, First dose on Wed10/11/23 at 0900, If unable to take orally, may crush and immediately give by feeding tube. 0954 (Given - Provider: Geni Wall RN) 0829 (Given - Provider: Moody Gorman RN) 0954 (Given - Provider: Moody Gorman RN) aspirin suppository 150 mg(Linked Group 1) 150 mg, rectal, Daily, First dose on Wed10/11/23 at 0900, If unable to give by mouth or feeding tube. 0954 (See Alternative - Provider: Geni Wall RN) 0829 (See Alternative - Provider: Moody Gorman RN) 0954 (See Alternative - Provider: Moody Gorman RN) azithromycin (Zithromax) in dextrose 5 % in water (D5W) 250 mL IV 500 mg (COMPLETED) 500 mg, intravenous, at 250 mL/hr, Administer over 60 Minutes, Once, On Wed10/11/23 at 0225, For 1 dose, Suspected Indication (Select all that apply): Pneumonia, Type of Therapy: Empiric 0242 (New Bag - Provider: Heather Leonardo, FIDEL)0342 (Stopped - Provider: Heather Leonardo, FIDEL) azithromycin (Zithromax) in dextrose 5 % in water (D5W) 250 mL IV 500 mg (CANCELED) 500 mg, intravenous, at 250 mL/hr, Administer over 60 Minutes, Every 24 hours, First dose on Wed10/12/23 at 0000, Suspected Indication (Select all that apply): Pneumonia, Type of Therapy: Empiric 0102 (New Bag - Provider: Jody Ball RN - Comment: Did not want to infuse two antibiotics at the same time)020 (Stopped - Provider: Jody Ball RN) azithromycin (Zithromax) tablet 500 mg (CANCELED) 500 mg, oral, Every 24 hours, First dose on Wed10/12/23 at 2100, Suspected Indication (Select all that apply): Pneumonia, Type of Therapy: Empiric 2103 (Given - Provider: Amber Jacobsen RN) budesonide (Pulmicort) 0.25 mg/2 mL nebulizer solution 0.25 mg 0.25 mg, nebulization, 2 times daily RT, First dose on Wed10/11/23 at 1900, Rinse mouth with water after use to reduce aftertaste and incidence of candidiasis. Do not swallow. 1900 (Given - Provider: Scarlet Ashford, OLIVIA) 0700 (Not Given - Provider: Amber Pascal, OLIVIA - Reason: Medication not available)191 (Given - Provider: Malika [place], OLIVIA) 0622 (Given - Provider: Delmar Mcgowan RRT)1900 (Due) budesonide (Pulmicort) 0.5 mg/2 mL nebulizer solution 0.5 mg (CANCELED) 0.5 mg, nebulization, 2 times daily RT, First dose on Wed10/11/23 at 0600, Rinse mouth with water after use to reduce aftertaste and incidence of candidiasis. Do not swallow. 0603 (Given - Provider: Nancy Juares, CUSTOMER SERVICE SUPERVISOR) cefTRIAXone (Rocephin) 2 g IV in dextrose 5% 50 mL (CANCELED) 2 g, intravenous, at 100 mL/hr, Administer over 30 Minutes, Every 24 hours, First dose on Wed10/12/23 at 0000, premix bag, Suspected Indication (Select all that apply): Pneumonia, Type of Therapy: Empiric 0006 (New Bag - Provider: Jody Ball RN)0036 (Stopped - Provider: Jody Ball RN) 0012 (New Bag - Provider: Amber Jacobsen, FIDEL)0042 (Stopped - Provider: Amber Jacobsen RN) cefTRIAXone (Rocephin) IVPB 1 g (COMPLETED) 1 g, intravenous, at 100 mL/hr, Administer over 30 Minutes, Once, On Wed10/11/23 at 0225, For 1 dose, premix bag, Suspected Indication (Select all that apply): Pneumonia, Type of Therapy: Empiric 0242 (New Bag - Provider: Heather Leonardo RN)0312 (Stopped - Provider: Heather Leonardo RN) cholecalciferol (Vitamin D-3) tablet 5,000 Units 5,000 Units, oral, Daily, First dose on Wed10/12/23 at 1130 1300 (Not Given - Provider: Moody Gorman RN - Reason: Patient/family refused) 0957 (Given - Provider: Moody Gorman, FIDEL) dexAMETHasone (Decadron) tablet 6 mg (CANCELED) 6 mg, oral, Daily, First dose on Wed10/12/23 at 0900 0829 (Given - Provider: Moody Gorman RN) 0955 (Given - Provider: Moody Gorman, FIDEL) dexAMETHasone (PF) (Decadron) injection 10 mg (COMPLETED) 10 mg, intravenous, Once, On Wed10/11/23 at 0225, For 1 dose 0232 (Given - Provider: Heather Leonardo, FIDEL) diazePAM (Valium) injection 0.5 mg (COMPLETED) 0.5 mg, intravenous, Administer over 3 Minutes, Once, On Wed10/11/23 at 0205, For 1 dose, Administer over 1-3 minutes, maximum rate is 5 mg per minute., Indications: heart failure with reduced ejection fraction 0207 (Given - Provider: Heather Leonardo, FIDEL) empagliflozin (Jardiance) tablet 10 mg 10 mg, oral, Daily, First dose on Wed10/11/23 at 1845 1858 (Given - Provider: Leticia Nagel, FIDEL) 0828 (Not Given - Provider: Moody Gorman, FIDEL - Reason: Patient/family refused) 1010 (Given - Provider: Moody Gorman, FIDEL) enalaprilat (Vasotec) injection 1.25 mg (COMPLETED) 1.25 mg, intravenous, Once, On Wed10/11/23 at 0220, For 1 dose, IV push administer over 5 minutes; IV piggyback dilute in 50 mL NS or D5 and administer over 20 minutes 0233 (Given - Provider: Heather Leonardo, FIDEL) ezetimibe (Zetia) tablet 10 mg 10 mg, oral, Nightly, First dose on Wed10/13/23 at 2100 2100 (Due) furosemide (Lasix) injection 20 mg (COMPLETED) 20 mg, intravenous, Once, On Wed10/11/23 at 0150, For 1 dose 0151 (Given - Provider: Heather Leonardo, FIDEL) furosemide (Lasix) injection 20 mg (COMPLETED) 20 mg, intravenous, Once, On Wed10/11/23 at 0210, For 1 dose 0211 (Given - Provider: Heather Leonardo, FIDEL) heparin (porcine) injection 5,000 Units (CANCELED) 5,000 Units, intravenous, Every 8 hours, First dose on Wed10/11/23 at 0430 0900 (Not Given - Provider: Geni Wall RN - Reason: Patient/family refused - Comment: ambulating in the room)1900 (Given - Provider: Leticia Nagel, FIDEL) 0120 (Given - Provider: Jody Ball RN - Comment: Ordered modified to SQ, new order made by Dr. Basilio. Not given intravenously, but subcutaneously) heparin (porcine) injection 5,000 Units 5,000 Units, subcutaneous, Every 8 hours, First dose (after last modification) on Wed10/12/23 at 0900 0828 (Given - Provider: Moody Gorman, FIDEL)1801 (Given - Provider: Moody Gorman RN) 0012 (Given - Provider: Amber Jacobsen, RN)0900 (Not Given - Provider: Moody Gorman RN - Reason: Patient/family refused)1700 (Not Given - Provider: Moody Gorman RN - Reason: Patient/family refused) hydroCHLOROthiazide (Microzide) capsule 12.5 mg 12.5 mg, oral, Daily, First dose on Wed10/11/23 at 0900 0954 (Given - Provider: Geni Wall RN) 0829 (Given - Provider: Moody Gorman RN) 0954 (Given - Provider: Moody Gorman RN) insulin glargine (Lantus) injection 14 Units (CANCELED) 14 Units, subcutaneous, Daily before breakfast, First dose on Wed10/11/23 at 0700 0951 (Given - Provider: Geni Wall RN) 2104 (Given - Provider: Amber Jacobsen, RN) insulin glargine (Lantus) injection 20 Units 20 Units, subcutaneous, Daily before breakfast, First dose on Wed10/13/23 at 0830 2100 (Due - Provider: Moody Gorman RN) insulin lispro (HumaLOG) injection 0-15 Units 0-15 Units, subcutaneous, 3 times daily with meals, First dose on Wed10/12/23 at 0915, Insulin Lispro Corrective Scale #3 Hypoglycemia protocol Call LIP unit(s) if Blood Glucose is between 0 - 70 mg/dL 0 unit(s) if Blood glucose is between 71-150 3 unit(s) if Blood glucose is between 151-200 6 unit(s) if Blood glucose is between 201-250 9 unit(s) if Blood glucose is between 251-300 12 unit(s) if Blood glucose is between 301-350 15 unit(s) if Blood glucose is between 351-400 Notify provider unit(s) if Blood Glucose is greater than 400 mg/dL 0938 (Given - Provider: Moody Gorman RN)1240 (Given - Provider: Jana See, FIDEL)1721 (Given - Provider: Jana See RN) 1011 (Given - Provider: Moody Gorman RN)1258 (Given - Provider: Moody Gorman RN)1846 (Given - Provider: Moody Gorman, FIDEL) insulin lispro (HumaLOG) injection 0-25 Units (CANCELED) 0-25 Units, subcutaneous, 4 times daily with meals and nightly, First dose on Wed10/11/23 at 0800, Blood Glucose Target - Daytime (mg/dL): 150, Blood Glucose Target - Bedtime (mg/dL): 150, Blood Glucose Target - Overnight (mg/dL): 150, Hyperglycemia Correction Factor - Daytime: 25, Hyperglycemia Correction Factor - Bedtime: 25, Hyperglycemia Correction Factor - Overnight: 25, Carb Ratio - Breakfast (g/unit): 5, Carb Ratio - Lunch (g/unit): 5, Carb Ratio - Dinner (g/unit): 5, Carb Ratio - Bedtime (g/unit): 5, Carb Ratio - Overnight (g/unit): 5 0952 (Given - Provider: Geni Wall, FIDEL)1200 (Not Given - Provider: Geni Wall, FIDEL - Reason: Contraindicated) insulin regular (HumuLIN R) injection 9 Units (COMPLETED) 9 Units, intravenous, Once, On Wed10/11/23 at 0320, For 1 dose 0320 (Given - Provider: Heather Leonardo, FIDEL) insulin regular (HumuLIN, NovoLIN) bolus from bag 0-10 Units (COMPLETED) 0-10 Units, intravenous, Administer over 2 Minutes, Once, On Wed10/11/23 at 1230, For 1 dose 1400 (Bolus from Bag - Provider: Leticia Nagel, FIDEL) ipratropium-albuteroL (Duo-Neb) 0.5-2.5 mg/3 mL nebulizer solution 3 mL (COMPLETED) 3 mL, nebulization, Once, On Wed10/11/23 at 0150, For 1 dose 0202 (Given - Provider: Scarlet Ashford, OLIVIA - Comment: duoneb) ipratropium-albuteroL (Duo-Neb) 0.5-2.5 mg/3 mL nebulizer solution 3 mL 3 mL, nebulization, 4 times daily, First dose on Wed10/11/23 at 0615 0600 (Given - Provider: Nancy Juares, OLIVIA)1153 (Given - Provider: Nancy Juares, OLIVIA)1821 (Given - Provider: Scarlet Ashford, CUSTOMER SERVICE SUPERVISOR)2145 (Given - Provider: Scarlet Ashford CUSTOMER SERVICE SUPERVISOR) 0652 (Given - Provider: Amber Pascal CUSTOMER SERVICE SUPERVISOR)1156 (Given - Provider: Amber Pascal CUSTOMER SERVICE SUPERVISOR)1913 (Given - Provider: Malika [place], CUSTOMER SERVICE SUPERVISOR)2307 (Given - Provider: Malika [place] CUSTOMER SERVICE SUPERVISOR) 0621 (Given - Provider: Delmar Mcgowan CUSTOMER SERVICE SUPERVISOR)1152 (Given - Provider: Delmar Mcgowan RRT)1800 (Due - Provider: Nancy Juares RRT)2200 (Due - Provider: Nancy Juares RRT) lisinopril tablet 10 mg (CANCELED) 10 mg, oral, Daily, First dose on Wed10/11/23 at 0900 0954 (Given - Provider: Geni Wall RN) 0828 (Given - Provider: Moody Gorman RN) lisinopril tablet 5 mg 5 mg, oral, Daily, First dose (after last modification) on Wed10/13/23 at 0900 0900 (Given - Provider: Moody Goramn RN) metoprolol succinate XL (Toprol-XL) 24 hr tablet 25 mg 25 mg, oral, Daily, First dose on Wed10/11/23 at 1845, Do not crush or chew. 1858 (Given - Provider: Leticia Nagel RN) 0900 (Not Given - Provider: Moody Gorman RN - Reason: Patient/family refused) 0957 (Given - Provider: Moody Gorman RN) nicotine (Nicoderm CQ) 21 mg/24 hr patch 1 patch 1 patch, transdermal, Administer over 24 Hours, Daily, First dose on Wed10/11/23 at 0900 0900 (Not Given - Provider: Geni Wall RN - Reason: Patient/family refused) 0900 (Not Given - Provider: Moody Gorman RN - Reason: Patient/family refused) 0900 (Not Given - Provider: Moody Gorman RN - Reason: Patient/family refused) nitroglycerin (Darrick-Bid) 2 % ointment 1 inch (COMPLETED) 1 inch, transdermal, Once, On Wed10/11/23 at 0215, For 1 dose, Apply to chest or back with the applicator or dose-measuring paper. Wash hands before & after 0214 (Given - Provider: Heather Leonardo RN - Comment: Right) perflutren lipid microspheres (Definity) injection 0.5-10 mL of dilution (COMPLETED) 0.5-10 mL of dilution, intravenous, Once in imaging, Starting on Wed10/11/23 at 0917, For 1 dose, CV Medications, Contrast - for use by imaging provider only. Prior to administration, Definity product must be activated. First, bring vial to room temperature. Then, shake vial for 45 seconds. Do not use if the 45 second activation cycle has not been completed. Following activation, the product will appear as a milky white suspension and may be used immediately. If not used within 5 minutes of activation, re-suspend by inverting and shaking the vial for 10 seconds. Discard unused product. Administration: Dilute 1.3 mL of activated DEFINITY with 8.7 mL of normal saline in a 10 mL syringe. Inject 0.5 mL of diluted DEFINITY when notified the images/film are unclear to enhance view of Left Ventricular borders. Repeat 0.5 mL of DEFINITY until clear images are obtained, not to exceed 10 mLs. Once images are obtained or limit of medication is reached, flush line with 10 mL of Normal Saline. 0919 (Given - Provider: Jana See RN - Comment: dose corrected) perflutren protein A microsphere (Optison) injection 0.5 mL 0.5 mL, intravenous, Once in imaging, Starting on Wed10/11/23 at 0917, For 1 dose sodium chloride 0.9 % bolus 500 mL (COMPLETED) 500 mL, intravenous, at 1,000 mL/hr, Administer over 0.5 Hours, Once, On Wed10/11/23 at 0115, For 1 dose 0115 (New Bag - Provider: Heather Leonardo, FIDEL)0145 (Stopped - Provider: Heather Leonardo, FIDEL) sulfur hexafluoride microsphr (Lumason) injection 24.28 mg 24.28 mg (2 mL), intravenous, Once in imaging, Starting on Wed10/11/23 at 0917, For 1 dose, Follow administration with 5 mL NaCL 0.9% injection. tamsulosin (Flomax) 24 hr capsule 0.4 mg 0.4 mg, oral, Daily, First dose on Wed10/11/23 at 0900, Give 30 minutes after the same mealtime each day. Capsules should be swallowed whole; do not crush, chew, or open. 0954 (Given - Provider: Geni Wall, FIDEL) 0938 (Given - Provider: Moody Gorman, RN) 0955 (Given - Provider: Moody Gorman RN) zinc sulfate (Zincate) capsule 50 mg of elemental zinc 50 mg of elemental zinc, oral, Daily, First dose on Wed10/12/23 at 1130 1300 (Not Given - Provider: Moody Gorman RN - Reason: Patient/family refused) 0955 (Given - Provider: Moody Gorman RN) Continuous Medication Order 10/11/2023 10/12/2023 10/13/2023 insulin [...] only 1354 (New Bag - Provider: Leticia Nagel RN)1639 (Rate/Dose Verify - Provider: Leticia Nagel RN)2158 (Rate/Dose Change - Provider: Jody Ball RN - Comment: Per Dr. Basilio, turn inuslin infusion to 3 units/hour)2238 (Stopped - Provider: Jody Ball, FIDEL) sodium chloride 0.9% infusion (CANCELED) 150 mL/hr, intravenous, Continuous, Starting on Wed10/11/23 at 0115 0115 (New Bag - Provider: Heather Leonardo, FIDEL)0149 (Stopped - Provider: Heather Leonardo, RN) PRN Medication Order 10/11/2023 10/12/2023 10/13/2023 [...] 40 0603 (Rate/Dose Change - Provider: Nancy Juares, CUSTOMER SERVICE SUPERVISOR)0918 (Rate/Dose Change - Provider: Nancy Juares RRT)1151 (Rate/Dose Verify - Provider: Nancy Juares CUSTOMER SERVICE SUPERVISOR)1155 (Rate/Dose Change - Provider: Nancy Juares RRT)1428 (Rate/Dose Verify - Provider: Nancy Juares CUSTOMER SERVICE SUPERVISOR)1822 (Start - Provider: Scarlet Ashford CUSTOMER SERVICE SUPERVISOR) 0208 (Rate/Dose Verify - Provider: Scarlet Ashford CUSTOMER SERVICE SUPERVISOR)0654 (Rate/Dose Change - Provider: Amber Pascal RRT - Comment: Decreased to RA)1034 (Rate/Dose Change - Provider: Amber Pascal RRT)1914 (Start - Provider: Malika [place] RRT)2310 (Start - Provider: Malika [place] RRT) 0623 (Rate/Dose Verify - Provider: Delmar Mcgowan RRT)0632 (Rate/Dose Change - Provider: Delmar Mcgowan RRT) [...] via IV Push, administer over 3-5 minutes.
Scheduled Medication Order 11/25/2023 11/26/2023 11/27/2023 furosemide (Lasix) injection 40 mg (COMPLETED) 40 mg, intravenous, Once, On Wed11/26/23 at 2315, For 1 dose 2334 (Given - Provider: Kristi Bowman, FIDEL) heparin (porcine) injection 4,000 Units (COMPLETED) 4,000 Units, intravenous, Once, On Wed11/26/23 at 2315, For 1 dose, Initial bolus. 2337 (Given - Provider: Kristi Bowman, RN) insulin regular (HumuLIN R) injection 10 Units (COMPLETED) 10 Units, intravenous, Once, On Wed11/26/23 at 2205, For 1 dose 2219 (Given - Provider: Kristi Bowman, RN) teccqwdvfduk-ybqmzfqczp-kkmdmplh (Zosyn) IV 3.375 g (COMPLETED) 3.375 g, intravenous, at 100 mL/hr, Administer over 0.5 Hours, Once, On Wed11/26/23 at 2205, For 1 dose, premix bag, Dosing of this medication varies based on severity of illness. Does this patient have sepsis or concern for sepsis (probable or documented infection plus systemic manifestations of infection)? No, Suspected Indication (Select all that apply): Pneumonia, Type of Therapy: Empiric 2218 (New Bag - Provider: Kristi Bowman RN)2248 (Stopped - Provider: Kristi Bowman RN) vancomycin in dextrose 5 % (Vancocin) IVPB 1,000 mg (COMPLETED) 1,000 mg, intravenous, at 250 mL/hr, Administer over 60 Minutes, Once, On Wed11/26/23 at 2205, For 1 dose, premix bag, Dosing of this medication varies based on severity of illness. Does this patient have sepsis or concern for sepsis (probable or documented infection plus systemic manifestations of infection)? No, Suspected Indication (Select all that apply): Pneumonia, Type of Therapy: Empiric 2224 (New Bag - Provider: Kristi Bowman RN)2324 (Stopped - Provider: Macy Posadas RN) Continuous Medication Order 11/25/2023 11/26/2023 11/27/2023 heparin 25,000 Units in dextrose 5% 250 mL (100 Units/mL) infusion (premix) 0-4,000 Units/hr (0-40 mL/hr), intravenous, Continuous, Starting on Wed11/26/23 at 2315, Until Discontinued, Low Intensity Heparin Protocol (<70kg) Initial Dose: 12 units/kg/hr --> Use heparin calculator for units/hr rate Maximum Initial Dose: 1000 units/hr Recheck Heparin Assay, UFH level 4 hours after any rate change, or per protocol. Titration Table: Heparin Assay, UFH < 0.1: Bolus 3,000 units, INCREASE rate by 200 units/hr. , Heparin Assay, UFH 0.1 to 0.2: Bolus 1,500 units. INCREASE rate by 100 units/hr. Heparin Assay, UFH 0.3 to 0.6: (THERAPEUTIC) DO NOT CHANGE Infusion Rate. No Bolus. Heparin Assay, UFH 0.7 to 1: No Bolus. DECREASE rate by 100 unit/hour. Heparin Assay, UFH 1.1 to 1.2: No Bolus. HOLD heparin infusion for 1 hour, then DECREASE rate by 200 units/hour. Heparin Assay, UFH > 1.2: No Bolus. HOLD heparin infusion for 1 hour, then recheck heparin assay. If repeat is > 0.6, continue to HOLD INFUSION. Confirm last draw was performed correctly (pump was paused for a minimum of 2 minutes, sample NOT drawn off line/lumen where medication was infusing) and contact provider for further orders. If repeat is <= 0.6, REDUCE previous infusion rate by 300 units/hour and restart infusion. Recheck Heparin Assay, UFH in 4 hours after dose reduction, resume nomogram. 2339 (New Bag - Provider: Kristi Bowman RN) 0136 (Handoff - Provider: Macy Posadas RN - Comment: sent infusing with physicians ambulance) PRN Medication Order 11/25/2023 11/26/2023 11/27/2023 heparin (porcine) injection 1,500-3,000 Units 1,500-3,000 Units, intravenous, Every 4 hours PRN, per current Heparin Assay, UFH result, Starting on Wed11/26/23 at 2314, Heparin Assay, UFH <0.1: Enter a 0 into the Heparin Assay, UFH field, Heparin Assay, UFH <0.1 Bolus Dose (units): 3000, Heparin Assay, UFH 0.1-0.2 Bolus Dose (units): 1500, Heparin Assay, UFH 0.3-0.6 Bolus Dose (units): 0, Heparin Assay, UFH 0.7-1 Bolus Dose (units): 0, Heparin Assay, UFH 1.1-1.2 Bolus Dose (units): 0, Heparin Assay, UFH >1.2 Bolus Dose (units): 0, Heparin Assay, UFH >2: Enter a 2 into the Heparin Assay, UFH field oxygen (O2) therapy inhalation, Continuous PRN - O2/gases, other, Starting on Wed11/26/23 at 2124, Titrate FIO2 to maintain sat, Device: Non-Invasive Ventilation, Rate in liters per minute: Other, Custom Value: 40%, FIO2: 40, Keep O2 Sat Above: 90% 2124 (Start - Provider: Ozzie Ha, OLIVIA) 0124 (Start - Provider: Ozzie Ha RRT) Scheduled Medication Order 11/29/2023 11/30/2023 12/01/2023 amLODIPine (NORVASC) tablet 10 mg 10 mg, Oral, Daily, First dose on 11/27/23 at 0900 0749 (Given - Provider: Jose Rafael Gill RN)0900 (Canceled Entry - Provider: Jose Rafael Gill RN) 0843 (Given - Provider: Karoline Merida, FIDEL) 0925 (Given - Provider: Sariah Clark, RN) aspirin EC tablet 81 mg 81 mg, Oral, Daily, First dose on 11/27/23 at 0900, DO NOT CRUSH OR CHEW. 0750 (Given - Provider: Jose Rafael Gill RN)0900 (Canceled Entry - Provider: Jose Rafael Gill RN) 0844 (Given - Provider: Karoline Merida, FIDEL) 0925 (Given - Provider: Sariah Clark, RN) azithromycin (ZITHROMAX) 500 mg in sodium chloride (NS) 0.9% 250 mL (vialmate) 500 mg, Intravenous, at 250 mL/hr, Every 24 hours, First dose on 11/27/23 at 0430, Indication: CAP 0457 (New Bag - Provider: Sultana Baptiste RN)0557 (Stopped - Provider: Poppy Olivera, RN) 0351 (New Bag - Provider: Nelia Flores, RN)0428 (Rate/Dose Verify - Provider: Nelia Flores, RN)0505 (Stopped - Provider: Nelia Flores, RN) 0503 (New Bag - Provider: Poppy Olivera, RN)0515 (Rate/Dose Verify - Provider: Poppy Olivera, RN)0603 (Stopped - Provider: Poppy Olivera, RN) cefTRIAXone (ROCEPHIN) IVPB 2 g (premix) 2,000 mg, Intravenous, at 100 mL/hr, Every 24 hours, First dose on 11/27/23 at 0430, Indication: CAP 0412 (New Bag - Provider: Sultana Baptiste RN)0442 (Stopped - Provider: Poppy Olivera, FIDEL) 0509 (New Bag - Provider: Nelia Flores RN)0539 (Stopped - Provider: Nelia Flores RN) 0416 (New Bag - Provider: Poppy Olivera RN)0442 (Rate/Dose Verify - Provider: Poppy Olivera RN)0446 (Stopped - Provider: Poppy Olivera, FIDEL) ezetimibe (ZETIA) tablet 10 mg 10 mg, Oral, Daily, First dose on Wed11/27/23 at 0900 0749 (Given - Provider: Jose Rafael Gill, RN)0900 (Canceled Entry - Provider: Jose Rafael Gill RN) 0843 (Given - Provider: Karoline Merida RN) 0925 (Given - Provider: Sariah Clark, FIDEL) furosemide (LASIX) injection 20 mg 20 mg, Intravenous, Every 12 hours scheduled, First dose (after last modification) on Wed11/28/23 at 1800, Administer IV push at 20 mg per minute (doses higher than 100 mg require IVPB) 0611 (Given - Provider: Sultana Baptiste RN)1800 (Given - Provider: Jose Rafael Gill, FIDEL) 0549 (Given - Provider: Nelia Flores, FIDEL)1707 (Given - Provider: Janice Spear, FIDEL) 0500 (Given - Provider: Poppy Olivera, FIDEL)1800 (Not Given - Provider: Sariah Clark, FIDEL - Reason: Loss of IV access) insulin glargine (LANTUS) injection 14 Units 14 Units, Subcutaneous, Nightly, First dose (after last modification) on Wed11/30/23 at 2100, Do not hold basal insulin without notifying physician. If patient NPO and BG < 100 before procedure, administer half of the glargine insulin (Lantus) dose; if BG is >100 administer full dose. Do not mix with other insulins in a syringe. Do NOT hold basal insulin without notifying physician 2016 (Given - Provider: Janice Spear, FIEDL) insulin glargine (LANTUS) injection 16 Units (CANCELED) 16 Units, Subcutaneous, Nightly, First dose (after last modification) on Wed11/29/23 at 2100, Do not hold basal insulin without notifying physician. If patient NPO and BG < 100 before procedure, administer half of the glargine insulin (Lantus) dose; if BG is >100 administer full dose. Do not mix with other insulins in a syringe. Do NOT hold basal insulin without notifying physician 2151 (Given - Provider: Nelia Flores RN) insulin lispro (AdmeLOG,HumaLOG) injection 0-15 Units 0-15 Units, Subcutaneous, At bedtime, First dose on Wed11/28/23 at 2100, For Nightly Insulin Dose Coverage, use: CORRECTIVE (Only) for BG greater than 300, Nightly CORRECTIVE Dose Method: Follow Corrective SCALE, Corrective Scale to use for BG > 300: Insulin SENSITIVE Scale, For Downtime Calculator, use: Insulin SC NIGHTtime 2099 (Not Given - Provider: Nelia Flores RN - Reason: Order parameters not met) 2016 (Not Given - Provider: Janice Spear RN - Reason: Order parameters not met) insulin lispro (AdmeLOG,HumaLOG) injection 0-30 Units (CANCELED) 0-30 Units, Subcutaneous, Every morning before breakfast, First dose on Wed11/28/23 at 0900, Dose should be given 10-15 minutes before a meal. If poor oral intake, nausea or blood glucose value < 80 before meal, give of the dose (rounded up to nearest unit) immediately after meal completed. If patient skipping meal, hold base prandial dose and continue to use corrective insulin as ordered. Once diet resumed, total base prandial + corrective doses may be given., Prandial Insulin Dosing Method: Specific Prandial Doses, Specific Prandial Dose (units of Insulin): 7, Corrective Insulin Regimen (select desired scale to cover BG result): Insulin SENSITIVE Scale, For Downtime Calculator, use: Insulin SC MEALtime PREprandial 0746 (Given - Provider: Jose Rafael Gill RN) insulin lispro (AdmeLOG,HumaLOG) injection 0-30 Units 0-30 Units, Subcutaneous, Daily before lunch, First dose (after last modification) on Wed11/29/23 at 1130, Dose should be given 10-15 minutes before a meal. If poor oral intake, nausea or blood glucose value < 80 before meal, give of the dose (rounded up to nearest unit) immediately after meal completed. If patient skipping meal, hold base prandial dose and continue to use corrective insulin as ordered. Once diet resumed, total base prandial + corrective doses may be given., Prandial Insulin Dosing Method: Specific Prandial Doses, Specific Prandial Dose (units of Insulin): 8, Corrective Insulin Regimen (select desired scale to cover BG result): Insulin SENSITIVE Scale, For Downtime Calculator, use: Insulin SC MEALtime PREprandial 1200 (Given - Provider: Jose Rafael Gill RN) 1213 (Given - Provider: Karoline Merida RN) 1310 (Given - Provider: Sariah Clark, FIDEL) insulin lispro (AdmeLOG,HumaLOG) injection 0-30 Units 0-30 Units, Subcutaneous, Before dinner, First dose (after last modification) on Wed11/29/23 at 1630, Dose should be given 10-15 minutes before a meal. If poor oral intake, nausea or blood glucose value < 80 before meal, give of the dose (rounded up to nearest unit) immediately after meal completed. If patient skipping meal, hold base prandial dose and continue to use corrective insulin as ordered. Once diet resumed, total base prandial + corrective doses may be given., Prandial Insulin Dosing Method: Specific Prandial Doses, Specific Prandial Dose (units of Insulin): 9, Corrective Insulin Regimen (select desired scale to cover BG result): Insulin SENSITIVE Scale, For Downtime Calculator, use: Insulin SC MEALtime PREprandial 1650 (Given - Provider: Jose Rafael Gill RN) 1630 (Not Given - Provider: Janice Spear RN - Reason: Patient/family refused)1706 (Given - Provider: Janice Spear, FIDEL) 1630 (Not Given - Provider: Sariah Clark RN - Reason: Other - Comment: Pt discharged. Family requests to hold) insulin lispro (AdmeLOG,HumaLOG) injection 0-30 Units 0-30 Units, Subcutaneous, Every morning before breakfast, First dose (after last modification) on Wed11/30/23 at 0730, Dose should be given 10-15 minutes before a meal. If poor oral intake, nausea or blood glucose value < 80 before meal, give of the dose (rounded up to nearest unit) immediately after meal completed. If patient skipping meal, hold base prandial dose and continue to use corrective insulin as ordered. Once diet resumed, total base prandial + corrective doses may be given., Prandial Insulin Dosing Method: Specific Prandial Doses, Specific Prandial Dose (units of Insulin): 8, Corrective Insulin Regimen (select desired scale to cover BG result): Insulin SENSITIVE Scale, For Downtime Calculator, use: Insulin SC MEALtime PREprandial 0843 (Given - Provider: Karoline Merida RN) 0730 (Not Given - Provider: Sariah Clark, RN - Reason: Order parameters not met) metoprolol succinate (TOPROL-XL) 24 hr tablet 25 mg 25 mg, Oral, Daily, First dose on Wed11/27/23 at 0900, DO NOT CRUSH OR CHEW. 0749 (Given - Provider: Jose Rafael Gill RN)0900 (Canceled Entry - Provider: Jose Rafael Gill RN) 0843 (Given - Provider: Karoline Merida RN) 0925 (Given - Provider: Sariah Clark, FIDEL) sodium chloride (PF) (NS) flush 5 mL(Linked Group 1) 5 mL, Intravenous, Every 8 hours scheduled, First dose on Wed11/27/23 at 0600, Saline lock 0611 (Given - Provider: Sultana Baptiste RN)1409 (Given - Provider: Jose Rafael Gill, FIDEL)2152 (Given - Provider: Nelia Flores, RN) 0551 (Given - Provider: Nelia Flores, RN)1400 (Canceled Entry - Provider: Karoline Merida RN)2017 (Given - Provider: Janice Spear, FIDEL)2200 (Canceled Entry - Provider: Janice Spear, RN) 0600 (Canceled Entry - Provider: Poppy Olivera, FIDEL)1311 (Given - Provider: Sariah Clark, FIDEL) tamsulosin (FLOMAX) 24 hr capsule 0.4 mg 0.4 mg, Oral, After evening meal, First dose on Wed12/01/23 at 1930, For 1 dose, DO NOT CRUSH OR CHEW. Give 30 minutes after the same meal daily. Monitor for orthostasis due to potential risk of syncope. 1930 (Not Given - Provider: Ellie Celestin RN - Reason: Other) Continuous Medication Order 11/29/2023 11/30/2023 12/01/2023 heparin (porcine) 25,000 unit/250 mL(100 unit/mL) in D5W infusion (CANCELED) 0-70 Units/kg/hr 70.6 kg (0-49.42 mL/hr, rounded to 0-49.4 mL/hr), Intravenous, Continuous, Starting on 11/27/23 at 0400, Choose one of the following protocols: Cardiac / Arterial, Bolus options: Protocol WITHOUT initial bolus only, For Downtime Calculator, use: Heparin Infusion Standard 0046 (Rate/Dose Verify - Provider: Sultana Baptiste RN)0124 (Paused - Provider: Poppy Olivera RN)0125 (Restarted - Provider: Poppy Olivera RN)0141 (Rate/Dose Change - Provider: Poppy Olivera RN)0145 (Paused - Provider: Poppy Olivera RN)0147 (Rate/Dose Change - Provider: Poppy Olivera RN)0149 (Stopped - Provider: Poppy Olivera RN)0341 (New Bag - Provider: Sultana Baptiste RN)0557 (Paused - Provider: Poppy Olivera RN)0604 (Restarted - Provider: Poppy Olivera RN)0616 (Rate/Dose Change - Provider: Sultana Baptiste RN)0617 (Rate/Dose Verify - Provider: Poppy Olivera RN)0619 (Rate/Dose Verify - Provider: Poppy Olivera RN)0622 (Paused - Provider: Poppy Olivera, FIDEL)0622 (Restarted - Provider: Poppy Olivera, FIDEL)0624 (Paused - Provider: Poppy Olivera RN)0626 (Paused - Provider: Poppy Olivera RN)0626 (Restarted - Provider: Poppy Olivera RN)1405 (Stopped - Provider: Poppy Olivera RN) PRN Medication Order 11/29/2023 11/30/2023 12/01/2023 acetaminophen (TYLENOL) tablet 650 mg 650 mg, Oral, Every 4 hours PRN, mild pain, fever 100.4 F or greater, headaches, Starting on 11/27/23 at 0312 dextrose (D10W) 10% bolus 125 mL 125 mL, Intravenous, at 750 mL/hr, As needed, Hypoglycemia, Starting on 11/27/23 at 1151, For 1 dose, Per Hypoglycemia Protocol: Blood Sugar: 51-69 mg/dL. Patient Condition: and patient is NPO, or NOT ALERT, or is UNABLE to swallow/eat. Intervention: Administer 125 mL D10% IV instead of half amp (12.5 grams) D50% due to shortage. heparin bolus from bag 0-5,000 Units (CANCELED) 0-5,000 Units, Intravenous, Continuous PRN, IF the MAR calculator for heparin infusion specifies a bolus from bag is to be administered, Starting on 11/27/23 at 0312, Choose one of the following protocols: Cardiac / Arterial, Bolus options: Protocol WITHOUT initial bolus only, For Downtime Calculator, use: Heparin Infusion Standard 0617 (Bolus from Bag - Provider: Sultana Baptiste RN) ipratropium-albuteroL (DUO-NEB) 0.5-2.5 mg/3 ml nebulizer solution 3 mL 3 mL, Inhalation, Every 2 hour PRN, shortness of breath, wheezing, Starting on 11/27/23 at 0312 lidocaine HCL (UROJET/GLYDO) 2 % applicator 1 Application(Linked Group 2) 1 Application, Intra-urethral, As needed, For insertion of Urinary Catheter, Starting on 11/27/23 at 0408, For 1 dose nitroGLYCERIN (NITROSTAT) SL tablet 0.4 mg 0.4 mg, Sublingual, Every 5 min PRN, chest pain, Starting on 11/27/23 at 0337, Anginal pain, may repeat [id number] x3, then notify physician. DO NOT CRUSH OR CHEW. ondansetron (ZOFRAN) injection 4 mg(Linked Group 3) 4 mg, Intravenous, Every 6 hours PRN, nausea, vomiting, Starting on 11/27/23 at 0312, Use oral route first, if tolerated. ondansetron (ZOFRAN-ODT) disintegrating tablet 4 mg(Linked Group 3) 4 mg, Oral, Every 6 hours PRN, nausea, vomiting, Starting on 11/27/23 at 0312, Use oral route first, if tolerated. Formulation requires tablet remain in sealed package until immediately prior to dose being administered. sodium chloride (PF) (NS) flush 5 mL(Linked Group 1) 5 mL, Intravenous, As needed, line care, Starting on 11/27/23 at 0312 1707 (Given - Provider: Janice Spear, FIDEL) 0415 (Given - Provider: Poppy Olivera RN) sodium chloride 0.9% (NS)(Linked Group 1) 0-150 mL/hr, Intravenous, As needed, To flush line after IV infusions when no maintenance IV ordered or a compatibility issue. Infuse 20ml at the same rate as the secondary infusion, Starting on 11/27/23 at 0312, Run as Primary IV. NOT intended for KVO. Linked Groups Order Group 1: Saline lock IV (CANCELED) Routine, Continuous, Starting on 11/27/23 at 0313, Until Specified And sodium chloride (PF) (NS) flush 5 mLJump to med 5 mL, Intravenous, As needed, line care, Starting on 11/27/23 at 0312 And sodium chloride (PF) (NS) flush 5 mLJump to med 5 mL, Intravenous, Every 8 hours scheduled, First dose on 11/27/23 at 0600
Saline lock
And sodium chloride 0.9% (NS)Jump to med 0-150 mL/hr, Intravenous, As needed, To flush line after IV infusions when no maintenance IV ordered or a compatibility issue. Infuse 20ml at the same rate as the secondary infusion, Starting on 11/27/23 at 0312
Run as Primary IV. NOT intended for KVO.
Group 2: Insert Indwelling Urethral Catheter (COMPLETED) Routine, Once, On 11/27/23 at 0409, For 1 occurrence
Indication(s): Hemodynamic instability, active titration of vasopressors, diuretics or fluid boluses
Removal Guidance: Remove PER NURSING POLICY And Maintain and Assess Indwelling Urethral Catheter (CANCELED) Routine, Every 12 hours, First occurrence on 11/27/23 at 0800
Removal Guidance: Remove PER NURSING POLICY And Remove and Discontinue Indwelling Urethral Catheter - Remove PER NURSING POLICY (COMPLETED) Routine, Once, On 11/27/23 at 0409, For 1 occurrence
Removal Guidance: Remove PER NURSING POLICY And lidocaine HCL (UROJET/GLYDO) 2 % applicator 1 ApplicationJump to med 1 Application, Intra-urethral, As needed, For insertion of Urinary Catheter, Starting on 11/27/23 at 0408, For 1 dose Group 3: ondansetron (ZOFRAN-ODT) disintegrating tablet 4 mgJump to med 4 mg, Oral, Every 6 hours PRN, nausea, vomiting, Starting on 11/27/23 at 0312
Use oral route first, if tolerated. Formulation requires tablet remain in sealed package until immediately prior to dose being administered.
Or ondansetron (ZOFRAN) injection 4 mgJump to med 4 mg, Intravenous, Every 6 hours PRN, nausea, vomiting, Starting on 11/27/23 at 0312
Use oral route first, if tolerated.
Scheduled Medication Order 10/26/2024 10/27/2024 10/28/2024 amLODIPine (NORVASC) tablet 10 mg 10 mg, Oral, Daily, First dose on 10/28/24 at 0900 0911 (Given - Provid er: Karthik Sandoval RN) aspirin EC tablet 81 mg 81 mg, Oral, Daily, First dose on 10/28/24 at 0900, DO NOT CRUSH OR CHEW. 0911 (Given - Provid er: Karthik Sandoval RN) dextrose (D10W) 10% bolus 125 mL (COMPLETED) 125 mL, Intravenous, at 750 mL/hr, Once, On 10/28/24 at 0815, For 1 dose 0718 (New Bag - Prov ider: Julia Chan RN)1437 (Stopped - Provider: Karthik Sandoval RN) heparin (porcine) injection 5,000 Units 5,000 Units, Subcutaneous, Every 8 hours scheduled, First dose on 10/28/24 at 1400, Notify physician if patient refuses. 1330 (Given - Provid er: Karthik Sandoval RN) hydrALAZINE (APRESOLINE) tablet 50 mg 50 mg, Oral, 2 times daily, First dose on Wed10/27/24 at 1800 1919 (Given - Provider: Milana Dawson RN) 0800 (Hold - Provider: Karthik Sandoval RN - Reason: Other - Comment: BP 118/58. Patient is ordered amlodipine and Imdur and metoprolol at 900am) insulin glargine (LANTUS) injection 12 Units 12 Units, Subcutaneous, Nightly, First dose on 10/28/24 at 2100, Do not hold basal insulin without notifying physician. If patient NPO: If BG less than 100 before procedure, administer half of the glargine insulin (Lantus) dose If BG is greater than 100 administer full dose Do not mix with other insulins in a syringe. Do NOT hold basal insulin without notifying physician insulin glargine (LANTUS) injection 14 Units (CANCELED) 14 Units, Subcutaneous, Nightly, First dose on Wed10/27/24 at 2100, Do not mix with other insulins in a syringe. Do NOT hold basal insulin without notifying physician 2009 (Given - Provider: Carlita Roth RN) insulin glargine (LANTUS) injection 5 Units (COMPLETED) 5 Units, Subcutaneous, Once, On Wed10/27/24 at 1845, For 1 dose, If patient NPO and BG LESS than 100 before procedure, administer half (rounded up to nearest unit) of the glargine insulin (LANTUS) dose; if BG is GREATER than 100, administer the full dose unless otherwise instructed by ordering physician Do not mix with other insulins in a syringe. Do NOT hold basal insulin without notifying physician 2008 (Given - Provider: Carlita Roth RN - Comment: medication not on the floor) insulin glargine (LANTUS) injection 5 Units (COMPLETED) 5 Units, Subcutaneous, Once, On 10/28/24 at 1100, For 1 dose, If patient NPO and BG LESS than 100 before procedure, administer half (rounded up to nearest unit) of the glargine insulin (LANTUS) dose; if BG is GREATER than 100, administer the full dose unless otherwise instructed by ordering physician Do not mix with other insulins in a syringe. Do NOT hold basal insulin without notifying physician 1100 (Given - Provid er: Angeles Andrew Sandoval, RN - Comment: Patient blood sugar of 55 at 1138am, patient given and snack and feeling shaky at this time. Blood sugar remeasured to be 130 at 1210pm on 10/28/24. Hold this medication until hypoglycemic symtpoms resolve. Blood sugar at 1327pm is 288. giving lantus 5 units now) insulin lispro (AdmeLOG,HumaLOG) injection 0-15 Units(Linked Group 1) 0-15 Units, Subcutaneous, At bedtime, First dose on 10/28/24 at 2100, IF initial POC glucose is greater than 250, administer insulin as directed and re-check POC glucose no sooner than 2 hours after administration. THEN notify provider if POC glucose is still greater than 250., For nightly BG greater than 250, give: Half ( ) Corrective Scale, Nightly Prandial Snack Dosing Method: NO Snack Coverage - Corrective Scale ONLY, Nightly Insulin Dose Corrective Scale: FOLLOW DAYTIME Prandial Corrective Scale, Corrective Insulin Regimen (select desired scale to cover BG result): USUAL Sensitivity Scale, (REMINDER: Nightly Insulin Dose Corrective Scale will be automatically calculated to be of the daytime scale), Dose Reduction Threshold (at meals) for POC Blood Glucose less than or equal to: 80, For Downtime Calculator, use: Insulin SC NIGHTtime insulin lispro (AdmeLOG,HumaLOG) injection 0-30 Units 0-30 Units, Subcutaneous, 3 times daily before meals, First dose (after last modification) on 10/28/24 at 1100, * Dose should be given EITHER: No sooner than 10-15 minutes BEFORE a meal (Specific Prandial Doses or NO Prandial Dose - Corrective Scale ONLY) - OR - Immediately AFTER meal completed (Carb Counting Ratio), Prandial Insulin Dosing Method: SPECIFIC Prandial Doses, Specific Prandial Dose (units of Insulin): 10, Corrective Insulin Regimen (select desired scale to cover BG result): Insulin SENSITIVE Scale, Dose Reduction Threshold (at meals) for POC Blood Glucose less than or equal to: 80, For Downtime Calculator, use: Insulin SC MEALtime PREprandial 1100 (Not Given - Provider: Karthik Sandoval RN - Reason: Order parameters not met - Comment: Patient Blood surgar 55 at this time. patient given snacks and orange juice.)1455 (Due - Provider: Karthik Sandoval RN - Comment: 8 units [place] [facility] [place] isosorbide mononitrate (IMDUR) 24 hr tablet 30 mg 30 mg, Oral, Daily, First dose on Wed10/28/24 at 0900, Include a nitrate free period DO NOT CRUSH OR CHEW. 0911 (Given - Provid er: Karthik Sandoval RN) lidocaine patch 1 patch 1 patch, Transdermal, Administer over 12 Hours, Daily, First dose on Wed10/27/24 at 2300, Apply to lower back for 12 hours, then remove patch for 12 hours. 2346 (Patch Applied - Provider: Julia Chan RN - Comment: L side back/hip) 0910 (Patch Removed - Provider: Karthik Sandoval RN)0911 (Patch Applied - Provider: Karthik Sandoval RN - Comment: back)1530 (Due: Patch Removed - Provider: Discharge Provider, Automatic - Comment: Time automatically adjusted from order being discontinued) metoprolol succinate (TOPROL-XL) 24 hr tablet 25 mg 25 mg, Oral, Daily, First dose on Wed10/28/24 at 0900, DO NOT CRUSH OR CHEW. 0911 (Given - Provid er: Karthik Sandoval RN) sodium chloride (PF) (NS) flush 5 mL(Linked Group 2) 5 mL, Intravenous, Every 8 hours scheduled, First dose on Wed10/27/24 at 2230, Saline lock 2230 (Canceled Entry - Provider: Julia Chan RN) 0516 (Given - Provider: Julia Chan RN)1330 (Given - Provider: Karthik Sandoval RN) sodium zirconium cyclosilicate (LOKELMA) packet 10 g(Linked Group 3) 10 g, Oral, 3 times daily, First dose on Wed10/28/24 at 0000, For 48 hours, Administer other enteral medications greater than or equal to 2 hours before or 2 hours after dose. Empty entire contents of the packet(s) into a glass with greater than or equal to 3 tablespoons (45 mL) of water. Stir well and drink immediately; if powder remains in the glass, add water, stir and drink immediately; repeat until no powder remains. NOT for rectal admininstration 2345 (Given - Provider: Julia Chan RN) 0745 (Hold - Provider: Karthik Sandoval RN - Reason: Other - Comment: potssium 4.1 within normal range)1500 (Canceled Entry - Provider: Karthik Sandoval RN - Comment: Potassium level 4.1) sodium zirconium cyclosilicate (LOKELMA) packet 10 g(Linked Group 3) 10 g, Oral, Daily, First dose on Wed10/30/24 at 0600, Administer other enteral medications greater than or equal to 2 hours before or 2 hours after dose. Empty entire contents of the packet(s) into a glass with greater than or equal to 3 tablespoons (45 mL) of water. Stir well and drink immediately; if powder remains in the glass, add water, stir and drink immediately; repeat until no powder remains. NOT for rectal admininstration tamsulosin (FLOMAX) 24 hr capsule 0.4 mg 0.4 mg, Oral, Daily, First dose on Wed10/27/24 at 1800, DO NOT CRUSH OR CHEW. Give 30 minutes after the same meal daily. Monitor for orthostasis due to potential risk of syncope. 191 (Given - Provider: Milana Dawson RN) 910 (Given - Provider: Karthik Sandoval RN) Continuous Medication Order 10/26/2024 10/27/2024 10/28/2024 insulin regular in 0.9 % NaCl (MYXREDLIN) 100 Units/100 mL infusion (CANCELED) 0.1-30 Units/hr (0.1-30 mL/hr), Intravenous, Titrated, Starting on Wed10/27/24 at 2230, Titrate insulin IV per MAR calculator to coincide with the scheduled point of care glucose results., For Downtime Calculator, use: Insulin Infusion DKA 0 (New Bag - Provider: Julia Chan RN)2300 (Paused - Provider: Julia Chan RN)2300 (Restarted - Provider: Julia Chan RN)230 (Rate/Dose Verify - Provider: Julia Chan RN)230 (Stopped - Provider: Julia Chan RN)230 (Associate Pump - Provider: Julia Chan RN)231 (New Bag - Provider: Julia Chan RN)2326 (Rate/Dose Verify - Provider: Julia Chan RN)2354 (Rate/Dose Verify - Provider: Julia Chan RN)2359 (Rate/Dose Change - Provider: Julia Chan RN) 0000 (Rate/Dose Verify - Provider: Julia Chan RN - Comment: [Action automatically changed])0001 (Rate/Dose Verify - Provider: Julia Chan RN)0059 (Rate/Dose Change - Provider: Julia Chan RN)0100 (Rate/Dose Verify - Provider: Julia Chan RN - Comment: [Action automatically changed])0205 (Rate/Dose Change - Provider: Julia Chan RN)0206 (Rate/Dose Verify - Provider: Julia Chan RN)0214 (Rate/Dose Verify - Provider: Julia Chan RN)0215 (Rate/Dose Verify - Provider: Julia Chan RN)0219 (Rate/Dose Verify - Provider: Julia Chan RN)0308 (Rate/Dose Change - Provider: Julia Chan RN)0309 (Rate/Dose Verify - Provider: Julia Chan RN)0310 (Rate/Dose Verify - Provider: Julia Chan RN)0401 (Rate/Dose Change - Provider: Julia Chan RN)0402 (Rate/Dose Verify - Provider: Julia Chan RN)0403 (Rate/Dose Verify - Provider: Julia Chan RN)0511 (Rate/Dose Change - Provider: Julia Chan RN)0514 (Rate/Dose Verify - Provider: Julia Chan RN)0515 (Rate/Dose Verify - Provider: Julia Chan RN)0524 (Rate/Dose Verify - Provider: Julia Chan RN)0526 (Rate/Dose Verify - Provider: Julia Chan RN)0617 (Rate/Dose Change - Provider: Julia Chan RN)0617 (Rate/Dose Verify - Provider: Julia Chan RN)0618 (Rate/Dose Verify - Provider: Julia Chan RN)0621 (Rate/Dose Verify - Provider: Julia Chan RN)0624 (Rate/Dose Verify - Provider: Julia Chan RN)0700 (Rate/Dose Change - Provider: Julia Chan RN)0700 (Rate/Dose Verify - Provider: Julia Chan RN)0725 (Rate/Dose Verify - Provider: Julia Chan RN)0759 (Rate/Dose Change - Provider: Julia Chan RN)0800 (Rate/Dose Verify - Provider: Julia Chan RN - Comment: [Action automatically changed])0801 (Rate/Dose Verify - Provider: Julia Chan RN)0900 (Rate/Dose Change - Provider: Karthik Sandoval RN)0930 (Stopped - Provider: Karthik Sandoval RN) sodium chloride 0.9% (NS) (CANCELED) 20 mL/hr, Intravenous, Continuous, Starting on Wed10/27/24 at 0700, Pre-Procedure 0632 (New Bag - Provider: Tessa Madera RN)1515 (Stopped - Provider: Alicia Bailey RN) sodium chloride 0.9% (NS) (CANCELED) 250 mL/hr, Intravenous, Continuous, Starting on Wed10/27/24 at 1130, For 4 hours 1130 (New Bag - Provider: Mary Willis, FIDEL)1527 (Stopped - Provider: Mary Willis, FIDEL) sodium chloride 0.9% (NS) (CANCELED) 100 mL/hr, Intravenous, Continuous, Starting on Wed10/27/24 at 1800 1924 (New Bag - Provider: Milana Dawson RN) 0900 (Stopped - Provider: Karthik Sandoval RN - Comment: not running upon assessment on 10/28/24) sodium chloride 0.9% (NS) (CANCELED) 100 mL/hr, Intravenous, Continuous, Starting on Wed10/27/24 at 2245, For 3 days 2301 (New Bag - Provider: Julia Chan RN)2302 (Rate/Dose Verify - Provider: Julia Chan RN)2326 (Rate/Dose Verify - Provider: Julia Chan RN)2354 (Rate/Dose Verify - Provider: Julia Chan RN) 0001 (Rate/Dose Verify - Provider: Julia Chan RN)0100 (Rate/Dose Verify - Provider: Julia Chan RN)0213 (Stopped - Provider: Julia Chan RN)0215 (Stopped - Provider: Julia Chan RN) sodium chloride 0.9% (NS) 100 mL/hr, Intravenous, Continuous, Starting on Wed10/28/24 at 0000, For 10 hours 0000 (Not Given - Provider: Julia Chan RN - Reason: Other - Comment: patient had bag of 0.9 infusing and will return this bag) PRN Medication Order 10/26/2024 10/27/2024 10/28/2024 acetaminophen (TYLENOL) tablet 650 mg 650 mg, Oral, Every 4 hours PRN, mild pain, fever 100.4 F or greater, headaches, Starting on Wed10/27/24 at 1701 dextrose 5 % and sodium chloride 0.45 % infusion (CANCELED) 100 mL/hr, Intravenous, Continuous PRN, MAINTENANCE IV Fluid (once BG is first less than 250 mg/dL) AND whenever Potassium is GREATER than or EQUAL to 5, Starting on Wed10/27/24 at 2142, AFTER starting this maintenance IV fluid: STOP the initial IV infusion on the DEC, and DISCONTINUE the initial IV order (send for provider cosign). 0213 (New Bag - Provider: Julia Chan RN)0213 (Paused - Provider: Julia Chan RN)0213 (Restarted - Provider: Julia Chan RN)0214 (Rate/Dose Verify - Provider: Julia Chan RN)0215 (Rate/Dose Verify - Provider: Julia Chan RN)0219 (Rate/Dose Verify - Provider: Julia Chan RN)0310 (Rate/Dose Verify - Provider: Julia Chan RN)0403 (Rate/Dose Verify - Provider: Julia Chan RN)0515 (Rate/Dose Verify - Provider: Julia Chan RN)0520 (Paused - Provider: Julia Chan RN)0520 (Restarted - Provider: Julia Chan RN)0523 (Stopped - Provider: Julia Chan RN) dextrose 5 % and sodium chloride 0.45 % with KCl 20 mEq/L infusion (CANCELED) 100 mL/hr, Intravenous, Continuous PRN, MAINTENANCE IV Fluid (once BG is first less than 250 mg/dL) AND whenever Potassium is LESS than 5, Starting on Wed10/27/24 at 2142, AFTER starting this maintenance IV fluid: STOP the initial IV infusion on the DEC, and DISCONTINUE the initial IV order (send for provider cosign). 0521 (New Bag - Provider: Julia Chan RN - Comment: k+ 4.1 and bs 94)0526 (Restarted - Provider: Julia Chan RN)0620 (Associate Pump - Provider: Julia Chan RN)0624 (New Bag - Provider: Julia Chan RN - Comment: trying to associate pump so it will conside)0725 (Rate/Dose Verify - Provider: Julia Chan RN)0801 (Rate/Dose Verify - Provider: Julia Chan RN)0930 (Stopped - Provider: Karthik Sandoval RN) fentaNYL (SUBLIMAZE) injection (CANCELED) As needed, Starting on Wed10/27/24 at 0856, Intra-Procedure 0856 (Given - Provider: Warren Guardado RN) heparin (porcine) injection (CANCELED) As needed, Starting on Wed10/27/24 at 0859, Intra-Procedure 0859 (Given - Provider: Elías Rodriguez MD) iopamidoL (ISOVUE-370) 370 mg iodine /mL (76 %) injection (CANCELED) As needed, Starting on Wed10/27/24 at 0921, Intra-Procedure 0921 (Given - Provider: Elías Rodriguez MD) lidocaine 1% (PF) (XYLOCAINE-MPF) 10 mg/mL (1 %) injection (CANCELED) As needed, Starting on Wed10/27/24 at 0857, Intra-Procedure 0857 (Given - Provider: Elías Rodriguez MD) melatonin Tab 5 mg 5 mg, Oral, Nightly PRN, Sleep, Starting on Wed10/27/24 at 1700 midazolam (VERSED) injection (CANCELED) As needed, Starting on Wed10/27/24 at 0856, Intra-Procedure 0856 (Given - Provider: Warren Guardado RN) nitroglycerin (TRIDIL) 50 mcg/ml 10 mL syringe (CANCELED) As needed, Starting on Wed10/27/24 at 0859, Intra-Procedure 0859 (Given - Provider: Elías Rodriguez MD) ondansetron (ZOFRAN) injection 4 mg 4 mg, Intravenous, Every 6 hours PRN, nausea, vomiting, Starting on Wed10/27/24 at 1700 sodium chloride (PF) (NS) flush 5 mL(Linked Group 2) 5 mL, Intravenous, As needed, line care, Starting on Wed10/27/24 at 2140 sodium chloride 0.9% (NS) bolus (COMPLETED) Intra-op continuous PRN, Starting on Wed10/27/24 at 0854, Intra-Procedure 0854 (New Bag - Provider: Warren Guardado, RN)0909 (Restarted - Provider: Warren Guardado, RN)0924 (New Bag - Provider: Warren Guardado, RN)1515 (Stopped - Provider: Alicia Bailey RN) sodium chloride 0.9% (NS)(Linked Group 2) 0-150 mL/hr, Intravenous, As needed, To flush line after IV infusions when no maintenance IV ordered or a compatibility issue. Infuse 20ml at the same rate as the secondary infusion, Starting on Wed10/27/24 at 2140, Run as Primary IV. NOT intended for KVO. verapamiL (ISOPTIN) injection (CANCELED) As needed, Starting on Wed10/27/24 at 0859, Intra-Procedure 0859 (Given - Provider: Elías Rodriguez MD) Linked Groups Order Group 1: insulin lispro (AdmeLOG,HumaLOG) injection 0-15 UnitsJump to med 0-15 Units, Subcutaneous, At bedtime, First dose on Wed10/28/24 at 2100, IF initial POC glucose is greater than 250, administer insulin as directed and re-check POC glucose no sooner than 2 hours after administration. THEN notify provider if POC glucose is still greater than 250., For nightly BG greater than 250, give: Half ( ) Corrective Scale, Nightly Prandial Snack Dosing Method: NO Snack Coverage - Corrective Scale ONLY, Nightly Insulin Dose Corrective Scale: FOLLOW DAYTIME Prandial Corrective Scale, Corrective Insulin Regimen (select desired scale to cover BG result): USUAL Sensitivity Scale, (REMINDER: Nightly Insulin Dose Corrective Scale will be automatically calculated to be of the daytime scale), Dose Reduction Threshold (at meals) for POC Blood Glucose less than or equal to: 80, For Downtime Calculator, use: Insulin SC NIGHTtime And Notify physician (CANCELED) Routine, Until discontinued, Starting on Wed10/28/24 at 0945, Until Specified, Other: IF HS POC Glucose RE-CHECK Greater than 250, If initial HS POC glucose is greater than 250, administer insulin as directed and re-check POC glucose no sooner than 2 hours after administration. IF RE-CHECK POC glucose is still greater than 250, notify provider. Group 2: Saline lock IV (CANCELED) Routine, Continuous, Starting on Wed10/27/24 at 2141, Until Specified And sodium chloride (PF) (NS) flush 5 mLJump to med 5 mL, Intravenous, As needed, line care, Starting on Wed10/27/24 at 2140 And sodium chloride (PF) (NS) flush 5 mLJump to med 5 mL, Intravenous, Every 8 hours scheduled, First dose on Wed10/27/24 at 2230, Saline lock And sodium chloride 0.9% (NS)Jump to med 0-150 mL/hr, Intravenous, As needed, To flush line after IV infusions when no maintenance IV ordered or a compatibility issue. Infuse 20ml at the same rate as the secondary infusion, Starting on Wed10/27/24 at 2140, Run as Primary IV. NOT intended for KVO. Group 3: sodium zirconium cyclosilicate (LOKELMA) packet 10 gJump to med 10 g, Oral, 3 times daily, First dose on Wed10/28/24 at 0000, For 48 hours, Administer other enteral medications greater than or equal to 2 hours before or 2 hours after dose. Empty entire contents of the packet(s) into a glass with greater than or equal to 3 tablespoons (45 mL) of water. Stir well and drink immediately; if powder remains in the glass, add water, stir and drink immediately; repeat until no powder remains. NOT for rectal admininstration Followed by sodium zirconium cyclosilicate (LOKELMA) packet 10 gJump to med 10 g, Oral, Daily, First dose on Wed10/30/24 at 0600, Administer other enteral medications greater than or equal to 2 hours before or 2 hours after dose. Empty entire contents of the packet(s) into a glass with greater than or equal to 3 tablespoons (45 mL) of water. Stir well and drink immediately; if powder remains in the glass, add water, stir and drink immediately; repeat until no powder remains. NOT for rectal admininstration Goals (unrecognized section and content) Goals may be documented in a n alternate sectionGoals may be documented in an alternate sectionGoals may be documented in an alternate sectionGoals may be documented in an alternate section FOR RECORDS PERTAINING TO PATIENTS WHO ARE [...] BE BASED ON THE PRIMARY CLINICAL RECORDS. [employer] provides no warranty or guarantee of the accuracy or completeness of information in this document.
[2025-04-03 00:58] LABS: Anion Gap 14 (5-15); BUN 42 mg/dL (4-19); BUN/Creat Ratio 22.3 RATIO (10-20); Calcium,Total 8.8 mg/dL (7.6-11.0); Carbon Dioxide 20.8 mmol/L (21.0-32.0); Chloride 104 mmol/L (98-108); Creatinine, Serum 1.88 mg/dL (0.70-1.20); EST Glomerular Filtration Rate 35 (>60); Glucose 255 mg/dL (70-99); Potassium 4.4 mmol/L (3.3-5.1); Sodium Level 139 mmol/L (133-145)
[2025-04-03 00:59] LABS: Pro- Brain NATRIURETIC PEPTIDE 6552 pg/mL (<=1800); Troponin T High Sensitivity 58 ng/L (<=22)
[2025-04-03 01:18] LABS: D-Dimer Quantitative (DVT/PE) 1.86 FEU/ug/m (0.27-0.49)
--- NOTE | 2025-04-03 02:34 | CT_ITS ---
PROCEDURE: CTA CHEST W/WO CONTRAST 04/03/2025 REASON FOR EXAM: SOB, ELEVATED D-DIMER TECHNIQUE: CTA imaging of the chest with intravenous contrast. Multiplanar and multisequence images were obtained. CONTRAST: Isovue 370 VOLUME: 100 mL. One or more dose reduction techniques were used (e.g., Automated exposure control, adjustment of the mA and/or kV according to patient size, use of iterative reconstruction technique). RADIATION DOSE SUMMARY: CTDlvol: 8.9 mGy DLP: 182 mGycm COMPARISON: Radiograph on 04/03/2025. FINDINGS: Mild bilateral pleural effusions. Passive atelectatic airspace disease/airspace consolidations of the lower lobes. Bilateral chronic perihilar interstitial pulmonary thickening with associated mild multifocal ground-glass densities, possibly superimposed pneumonia. Mild diffuse spondylosis. Normal enhancement of the main pulmonary artery and right and left pulmonary arteries. Normal enhancement of the bilateral peripheral pulmonary arteries. There is no demonstrated pulmonary embolism. Normal thoracic aorta and visualized great vessels. There is no demonstrated aortic dissection. Normal heart and pericardium. Normal mediastinum. Normal hilar regions. Normal visualized trachea and thickened bronchi. Normal visualized upper abdomen. CT/CTA Chest W/WO Contrast IMPRESSION: Mild bilateral pleural effusions. Passive atelectatic airspace disease/airspace consolidations of the lower lobes . Bilateral chronic perihilar interstitial pulmonary thickening with associated m ild multifocal ground-glass densities, possibly superimposed pneumonia. Mild diffuse spondylosis. No CT evidence of pulmonary embolus or aortic dissection. Reading [facility]
[2025-04-03 03:13] LABS: Troponin T High Sens 2 HR 76 ng/L (<=22)
[2025-04-03] MEDS: Furosemide 40 MG/4 ML Vial IV ×3 (03:49→16:45)
[2025-04-03] MEDS: Ceftriaxone 1 GM/50 ML BAG IV ×2 (03:49→22:41)
--- NOTE | 2025-04-03 04:02 | HP.PCM.HOS_ITS ---
HPI - General General Date of Admission: 04/03/25 Date of Service: 04/03/25 Chief Complaint: Dyspnea. HPI Narrative The patient is an 79 y/o M w/ PMHx: CKD stage III unclear subtype per GFR trending, Chronic macrocytic anemia, HTN, HLD, Diabetes mellitus type II, BPH with obstructive pathology, Tobacco use who presents to the [facility] ED on 04/03/2025 with history of worsening dyspnea starting earlier in the day with no recent peripheral edema, weight gain orthopnea actually reporting that he is lost some weight with no associated chest discomfort and given worsening prompted ED evaluation to be cautious. Patient family was present denies any recent illness in the home or near the patient. They do note that he is had recent issues wheezing. They also note he is a very brittle diabetic and that he has not gotten his insulin this evening. Workup in the ED included T97.8 Temporal, heart rate 103, BP 206/80, respiratory rate 25, presenting initially on 9% on CPAP 30% FiO2 transition to BiPAP 30% noted to be at 100%-->T97.7, heart rate 85, BP 169/58, respiratory rate 16--> most currently heart rate 85, BP 172/65, respiratory rate 17, 100% on 4 L nasal cannula, CBC with WC 15.7, hemoglobin 10.2, MCV 94.4, platelets 300 with left shift, D-dimer 1.86, VBG with pH 7.35, PO244, O2 saturation 76% on BiPAP, BMP with carbon oxide 20.8, BUN/creatinine 42/1.88, GFR 35, glucose 255, initial troponin 58 with repeat delta troponin 76, NT proBNP II 6552, chest x-ray with multifocal airspace opacities of the lungs more prominent in the perihilar zones in the lower lobes concerning for possible multifocal congestion and/or pneumonia, CTA chest with mild bilateral pleural effusions, passive atelectatic airspace disease/airspace consolidations of the lower lobes, bilateral chronic perihilar interstitial pulmonary thickening with associated mild multifocal groundglass densities possibly superimposed pneumonia, mild diffuse spondylosis with no evidence of any pulmonary embolus or aortic dissection, EKG with sinus rhythm with no acute evidence of ischemia. In the ED patient administered DuoNeb therapy as well as Solu-Medrol 125 mg IV x 1, Rocephin 1 g IV x 1, azithromycin 500 mg IV x 1, Lasix 40 mg IV x 1 and sublingual nitroglycerin x 1. [facility] Medical History (Updated 04/03/25 @ 04:[address] Dyana Hwang MD) Chronic anemia Tobacco use COPD (chronic obstructive pulmonary disease) HLD (hyperlipidemia) HTN (hypertension) BPH (benign prostatic hyperplasia) Chronic low back pain with sciatica Diabetes mellitus, type 2 CKD (chronic kidney disease), stage III Pneumonia COVID Wears glasses Wears dentures Home Medications ?Medication ?Instructions ?Recorded ?Last Taken ?Type amlodipine 10 mg tablet (Norvasc) 10 mg PO 1200 08/12/21 History aspirin 81 mg tablet,delayed 81 mg PO DAILY 08/05/21 U nknown History release insulin glargine 100 unit/mL (3 15 unit subcut QPM 03/21 Unknown History mL) subcutaneous pen (Lantus Solostar U-100 Insulin) insulin lispro 100 unit/mL 0 unit subcut TID SLIDING S JENNIFER 08/05/21 Unknown History subcutaneous pen tamsulosin 0.4 mg capsule (Flomax) 0.4 mg PO .COMPLEX urination 08/05/21 Unknown History ezetimibe 10 mg tablet 10 mg PO DAILY 04/06/24 Unkn own History lisinopril 5 mg tablet 5 mg PO DAILY 04/06/24 Unkno wn History metoprolol succinate 25 mg 25 mg PO DAILY 04/06/24 Unk nown History tablet,extended release 24 hr blood sugar diagnostic (Contour 09/12/24 Unknown Hist ory Next Test Strips) potassium chloride 20 mEq 20 meq PO BIDCM 30 days #60 tabs 09/14/24 Unknown Rx tablet,extended release(part/cryst) furosemide 40 mg tablet (Lasix) 40 mg PO DAILY 5 Unknown History hydralazine 50 mg tablet 50 mg PO Q8H 04/03/25 Unknow n History Allergy/AdvReac Type Severity Reaction Status Date / Time Corticosteroids AdvReac Other Verified 04/03/25 00:16 (Glucocorticoids) (steroids) Agldhnk-WJY-XpR Reductase AdvReac Other Verified 04/03/25 00:16 Inhibitor (Yrsmrww-Zin-Fqz Reductase Inhibitor) Family History (Updated 04/03/25 @ 04:[address] Dyana Hwang MD) Mother COPD (chronic obstructive pulmonary disease) Father CAD (coronary artery disease) Heart disease Surgical History Hx of cystoscopy Hx of colonoscopy Hx of left cataract extraction Hx of right cataract extraction Social History (Updated 04/03/25 @ 04:[address] Dyana Hwang MD) household members: spouse Smoking Status: Current every day smoker tobacco type: cigarettes alcohol intake: never substance use type: does not use ROS ROS Narrative Admission Review of Systems: CONSTITUTIONAL: No fever, chills, + weakness, fatigue, weight loss. HEENT: Eyes: No visual loss, blurred vision, double vision or yellow sclerae. Ears, Nose, Throat: No hearing loss, sneezing, congestion, runny nose or sore throat. SKIN: No rash or itching, lesions, wounds. CARDIOVASCULAR: No chest pain, chest pressure or chest discomfort, palpitations, edema, orthopnea, syncopal events. RESPIRATORY: + Dyspnea, wheezing, no marked purulent cough. No hemoptysis. GASTROINTESTINAL: No anorexia, nausea, vomiting or diarrhea, abdominal pain, melena, BRBPR. GENITOURINARY: + BPH with obstructive pathology/urinary frequency. No dysuria, urgency or retention. NEUROLOGICAL: No headache, dizziness, syncope, paralysis, ataxia, numbness or tingling in the extremities, focal weakness, change in bowel or bladder control, seizure. MUSCULOSKELETAL: + muscle, back pain, joint pain or stiffness. HEMATOLOGIC: + Chronic anemia, no marked easy history of bleeding/bruising.+ LYMPHATICS: No enlarged nodes. No history of splenectomy. PSYCHIATRIC: No history of depression or anxiety. ENDOCRINOLOGIC: No reports of sweating, cold or heat intolerance. No polyuria or polydipsia. ALLERGIES: No history of asthma, hives, eczema or rhinitis. Vital Signs Vital Signs Vital Signs: 04/03/25 00:01 04/03/25 00:05 04/03/25 00:05 Temperature 97.8 F 97.8 F Temperature Source Temporal Temporal Pulse Rate 103 H 100 Respiratory Rate 25 H 25 H Respiratory Effort Short of Breath Labored Accessory Muscle Use Respiratory Depth Deep Respiratory Pattern Tachypnea Blood Pressure 206/80 H 206/80 H Blood Pressure Mean 122 122 Pulse Ox 100 100 Oxygen Delivery Method CPAP Bi-pap Oxygen Flow Rate (L/min) Fraction of Inspired Oxygen (FIO2) 30 30 04/03/25 00:13 04/03/25 00:14 04/03/25 00:14 Temperature Temperature Source Pulse Rate 92 115 H 115 H Respiratory Rate 22 H 22 H Respiratory Effort Respiratory Depth Respiratory Pattern Blood Pressure 206/80 H Blood Pressure Mean Pulse Ox 100 Oxygen Delivery Method Oxygen Flow Rate (L/min) Fraction of Inspired Oxygen (FIO2) 30 04/03/25 00:19 04/03/25 00:25 04/03/25 01:05 Temperature 97.7 F L Temperature Source Temporal Pulse Rate 87 85 Respiratory Rate 18 16 Respiratory Effort Respiratory Depth Respiratory Pattern Blood Pressure 169/61 H 169/58 H Blood Pressure Mean 97 95 Pulse Ox 100 100 Oxygen Delivery Method Bi-pap Bi-pap Bi-pap Oxygen Flow Rate (L/min) Fraction of Inspired Oxygen (FIO2) 30 30 30 04/03/25 02:00 04/03/25 03:00 04/03/25 03:52 Temperature 97.9 F 97.7 F L Temperature Source Temporal Temporal Pulse Rate 85 97 96 Respiratory Rate 17 17 17 Respiratory Effort Respiratory Depth Respiratory Pattern Blood Pressure 172/65 H 165/58 H 165/58 H Blood Pressure Mean 100 93 93 Pulse Ox 100 98 99 Oxygen Delivery Method Nasal Cannula Nasal Cannula Bi-pap Oxygen Flow Rate (L/min) 4 4 Fraction of Inspired Oxygen (FIO2) 30 Weight Weight: 142 lb 10.225 oz Body Mass Index (BMI) 22.3 Physical Exam Narrative Physical Examination: General: Awake, alert, oriented x 3 and cooperative, seated upright in ED bed, fatigued appearing, BiPAP in place, respiratory distress lessened with BiPAP transition. Skin: Normal color, normal turgor, no icterus, no cyanosis except occasional stage ecchymoses, abrasion. HEENT: AT/NC, EOMI, PERRLA, mildly dry MM, BiPAP in place, difficult to discern carotid bruit given referred sound, + JVD noted. Lungs: Significantly diminished, occasional end expiratory wheeze primarily anterior red, BiPAP in place, currently respiratory rate improved and respiratory distress lessened, unable to discern current rales or rhonchi. Heart: Mildly tachycardic with regular rhythm; no gallop, rub audible. Abdomen: Soft, NTTP, ND, distant normal BS, no appreciated HSM. Extremities: No cyanosis, no marked clubbing, no marked distal edema. Neurological: Patient awake, alert, oriented as no, cognitive function currently mildly decreased given respiratory distress presentation but improving, pupils equally reactive to light and accommodation, cranial nerves gross normal, moving all 4 extremities, no focal deficits, strength severely globally decreased secondary to acute presentation Psychiatric: Affect appears fatigued, respiratory distress lessening, no acute evidence of depressive or anxiety feelings. Results Lab / Micro Data 04/03/25 00:05 04/03/25 00:05 Labs: Laboratory Results - last 24 hr 04/03/25 00:05: WBC 15.7 H, RBC 3.41 L, Hgb 10.2 L, Hct 32.2 L, MCV 94.4 H, MCH 29.9, MCHC 31.7 L, RDW Std Deviation 45.3 H, RDW Coeff of [place] 13.2, Plt Count 300, MPV 10.8, Immature Gran % (Auto) 0.600, Neut % (Auto) 76.4 H, Lymph % (Auto) 13.5 L, Travis % (Auto) 7.0, Eos % (Auto) 1.9, Baso % (Auto) 0.6, Absolute Neuts (auto) 12.0 H, Absolute Lymphs (auto) 2.12, Nucleated RBC % 0, D-Dimer Quant (PE/DVT) 1.86 H*, Sodium 139, Potassium 4.4, Chloride 104, Carbon Dioxide 20.8 L, Anion Gap 14, BUN 42 H, Creatinine 1.88 H, Estim Creat Clear Calc 28.20 L, Est GFR (MDRD) Non-Af 35 L, BUN/Creatinine Ratio 22.3 H, Glucose 255 H, Calcium 8.8, Troponin T High Sens 58 H*, NT pro BNP II 6552 H 04/03/25 02:45: Troponin T Hi Sens 2 Hr 76 H* Micro: Microbiology 04/03/25 00:25 Mucosa - Nose SARS-CoV-2, Influenza & RSV (PCR) - Final ABG Data ABG results: ABG 04/03/25 00:16 Specimen Type JUANITA Sample Site Not entered O2 % 30.0 VBG pH 7.35 VBG pO2 44 H VBG HCO3 26 VBG Total CO2 27 VBG O2 Sat (Calc) 76 H VBG Base Excess 0 POC Mix VBG pCO2 Pt Tmp 46.6 O2 Delivery Device BiPAP Clinical Comments 18. 10. 30% Imaging Radiology Impression Chest X-Ray 04/03/25 00:30 IMPRESSION: Multifocal airspace opacities of the lungs are more prominent in the perihilar zones and the lower lobes, possibly multifocal congestion and/or pneumonia. Reading Location: [place] [address] Chest CTA 04/03/25 02:34 IMPRESSION: Mild bilateral pleural effusions. Passive atelectatic airspace disease/airspace consolidations of the lower lobes. Bilateral chronic perihilar interstitial pulmonary thickening with associated mild multifocal ground-glass densities, possibly superimposed pneumonia. Mild diffuse spondylosis. No CT evidence of pulmonary embolus or aortic dissection. Reading Location: [place] [address] Assessment & Plan Assessment/Plan (1) Acute hypoxic respiratory failure: PLAN: Plan The patient is an 79 y/o M w/ PMHx: CKD stage III unclear subtype per GFR trending, Chronic macrocytic anemia, HTN, HLD, Diabetes mellitus type II, BPH with obstructive pathology, Tobacco use who presents to the [facility] ED on 04/03/2025 with history of worsening dyspnea starting earlier in the day with no recent peripheral edema, weight gain orthopnea actually reporting that he is lost some weight with no associated chest discomfort and given worsening prompted ED evaluation to be cautious. #1. Acute Hypoxic Respiratory Failure secondary to Acute on Chronic COPD exacerbation and concern for possible superimposed pneumonia, community-acquired with questionable concurrent possible overload, acute decompensated HF exacerbation unclear type with concurrently noted #2: Will admit to ICU, maintained on BIPAP, ABG requested, will consult ICU physician per protocol, maintain on ATC duonebs, PRN albuterol, IV methylprednisolone, IV Rocephin and IV azithromycin, HOB, IS parameters, will obtain sputum Cx, respiratory viral panel, urine antigens, procalcitonin, maintain on cardiac telemetry, continue to cycle cardiac enzymes with repeat EKGs as needed, judiciously diuresis as still uncertain that overload is an additional etiology, monitor I/Os, obtain TSH and magnesium level, request echocardiogram, maintain on heparin drip until further elucidate enzyme trending. If enzymes significantly rise may consider cardiology involvement but again confounded especially given respiratory distress upon presentation with possible demand as primary etiology. #2. Indeterminate cardiac enzyme likely secondary to #1 with demand: EKG in ED with sinus rhythm with no acute evidence of ischemia, chest x-ray with multifocal airspace opacities of the lungs more prominent in the perihilar zones in the lower lobes concerning for possible multifocal congestion and/or pneumonia, CTA chest with mild bilateral pleural effusions, passive atelectatic airspace disease/airspace consolidations of the lower lobes, bilateral chronic perihilar interstitial pulmonary thickening with associated mild multifocal ground-glass densities possibly superimposed pneumonia, mild diffuse spondylosis with no evidence of any pulmonary embolus or aortic dissection, initial troponin 58 with repeat delta troponin 76. Will maintain on a monitored bed to assure no acute myocardial infarction with serial cardiac enzymes and EKGs. Magnesium level requested. FLP in AM. Continue aspirin therapy. ECHO requested as noted above. #3. Diabetes mellitus type II: Will continue home insulin regimen with dose now, ADA diet, accu checks w/ ISS. #4. Hypertension: Continue home regimen including metoprolol, lisinopril, amlodipine, hydralazine, IV Lasix judiciously, PRN hydralazine. #5. Hyperlipidemia: Not on statin therapy with intolerance of some sort noted, continue ezetimibe home regimen, FLP in AM. #6. Chronic Kidney Disease Stage III, unclear subtype per GFR trending: Admission BUN/Cr 42/1.88, GFR 35, baseline renal function primarily 1.5-2.0, most recently 02/06/2025 creatinine 1.88, repeat BMP in AM. #7. Chronic macrocytic anemia: Admission hemoglobin 10.2, MCV 94.4, baseline hemoglobin 10-11, stable, continue to trend CBC. #8. BPH with obstructive pathology: Will continue patient home Flomax regimen, monitor for urinary retention. #9. Tobacco Abuse: Encouraged cessation, inpatient consultation per RT, NR if desired. #10. DVT prophylaxis: Heparin drip pending continued cardiac enzyme trending in case further arises. #11. CODE status: Patient NINA is his who is present and living will is currently in place. Discussed CODE status at length including difference between FULL code, DNR-CCA and DNR-CC status. Following discussions about the differences in these status, requested DNR-CCA, no intubation. Advanced Care Planning Face to Face Time: 16 minutes. Charges/Coding Visit Charges Inpatient E&M: 27816 Init Hosp L3 Procedures Hospitalists Procedures: 50522 Advncd Care Plan 30 Min
[2025-04-03 04:16] LABS: Lactic Acid 1.3 mmol/L (0.0-2.0)
--- OUTSIDE RECORDS SUMMARY | 2025-04-03 04:29 | XMS RPT_ITS | CCD ---
Author Organization [facility] Care Team Providers Care Acid Wash Operator Name Role Phone Nancy Mirza Unavailable Unavailable [...] Nancy Mirza MD Primary Care Provider [phone] Yuki, Dr. Nancy Key Attending Unavaila ian [...] Provider Ryley Jeter MD Primary Care Provider [phone] Dr. Ayanna Albert Attending Unavail able JORDAN, [...] e Provider Unavailable Kristy Parker MD Unavailable GENERIC PROVIDER, NO ASSIGNED PCP Primary Care Unavailable GENERIC PROVIDER, NO ASSIGNED PCP Primary Care Unavailable GENERIC PROVIDER, NO ASSIGNED PCP Primary Care Unavailable Kristy Parker MD Unavailable Steffany URIBE, Ryley Primary Care Provider Belkis URIBE, Dr. Suresh Attending Provider Malika [...] le STEFFANY, CHALON TUCKER Primary Care Unavailable [facility] Consulting UnaBERNADETTE Gaytan Attending Unavailable STEFFANY, CHALON TUCKER Primary Care Unavailable JESS RASHEED Admitting Unavailable CINTIA CLIFFORD Admitting Unavailable [facility] Consult[facility] Un available STEFFANY, CHALON TUCKER Primary Care Unavailable NIDIA GARAY Attending Unavailable WOO Referring Unavailable Allergies Allergy Classification Reported Allergen(s) Allergy Type Date of Onset Reaction(s) Facility Corticosteroids (1 source) predniSONE Drug Allergy 08-24-20 Other (See Comments) [facility] HMG-CoA Reductase Inhibitors (statins) (3 sources) Hmg-Coa Reductase Inhibitors (Statins) Drug Allergy 01-08-20 16 [facility] (19 sources) Hmg-Coa Reductase Inhibitors (Statins); Translations: [GVOWGTO-LXU-MMO REDUCTASE INHIBITORS] Propensity to adverse reactions to drug 01-08-20 16 Other [facility] Work Phone: (6 sources) HMG-CoA reductase inhibitor Propensity to adverse reactions to drug 01-08-20 16 [facility] (20 sources) HMG-CoA reductase inhibitor Propensity to adverse reactions to drug 01-08-20 16 Unknown [facility] (17 sources) predniSONE; Translations: [predniSONE TABS] Drug Allergy 08-24-20 Other, Other (See Comments) [facility] (4 sources) predniSONE; Translations: [PREDNISONE] Drug Allergy 08-24-20 [facility] (1 source) Glucocorticoid Receptor Agonists Propensity to adverse reactions 04-06-20 Other [facility] Comment on above: Blood sugar increase (1 source) Corticosteroids Drug allergy (disorder) 04-06-20 [facility] (1 source) Heyopqj-Ufb-Bgs Reductase Inhibitor Drug allergy (disorder) 04-06-20 [facility] Repository Medications Current Medications Medication Drug Class(es) [...] 11/27/23 at 0337 Anginal pain, may repeat [id number] x3, then notify physician. DO NOT CRUSH [...] PLACED TUBE OR TUBE less than 14 Macedonian. To administer dissolved tablet(s) mix with 4 [...] (porcine) injection 4,000 Units Start: 11-26-2023 take 8300-2950 [IU] intravenously every four hours as needed heparin (porcine) injection 1,500-3,000 Units Start: 10-12-2023 inject 5000 [IU] by subcutaneous injection every eight hours heparin (porcine) injection 5,000 Units Start: 10-11-2023 End: 10-12-2023 take 5000 [IU] intravenously every eight hours heparin (porcine) injection 5,000 Units heparin bolus from bag 0-5,000 Units (1 source) Start: 11-27-2023 End: 11-29-2023 0-5,000 Units, Intravenous, Continuous PRN, IF the [facility] calculator for heparin infusion specifies a bolus [...] Coronary arteriosclerosis; Translations: [Atherosclerotic heart disease of [place] coronary artery without angina pectoris] Onset: 10-17-2024 [...] By: #### 9 2498 #### [facility] [place] [address] Supervisor Wrapping Room: Jadon Velez MD Chloride [Moles/Vol] 104 mmol/L Normal 98-110 [facility] Comment on above: Performed By: #### 9 2498 #### [facility] [place] [address] Supervisor Wrapping Room: Jadon Velez MD CO2 [Moles/Vol] 23 mmol/L Normal 20-32 [facility] Comment on above: Performed By: #### 9 2498 #### [facility] [place] [address] Supervisor Wrapping Room: Jadon Velez MD Creatinine [Mass/Vol] 1.96 mg/dL High 0.70-1.[address] [facility] Comment on above: Performed By: #### 9 2498 #### [facility] of [address], [address] [place] [address] Supervisor Wrapping Room: Jadon Velez MD ELECTROLYTE BALANCE 11 mmol/L (calc) Normal 7-17 [facility] Comment on above: Performed By: #### 9 2498 #### [facility] of [address], [address] [place] [address] Supervisor Wrapping Room: Jadon Velez MD GFR/1.73 sq M.predicted among non-blacks MDRD (S/P/Bld) [Vol rate/Area] 34 mL/min/{1.73_m2} Low > OR = 60 [facility] Comment on above: Performed By: #### 9 2498 #### [facility] of [place] [address] Supervisor Wrapping Room: Jadon Velez MD Glucose [Mass/Vol] 301 mg/dL High 65-99 [facility] Comment on above: Result Comment: Fasting reference interval For someone without known diabetes, a glucose value >125 mg/dL indicates that they may have diabetes and this should be confirmed with a follow-up test. Performed By: #### 9 2498 #### [facility] [place] [address] Supervisor Wrapping Room: Jadon Velez MD Potassium [Moles/Vol] 4.2 mmol/L Normal 3.5-5.[address] [facility] Comment on above: Performed By: #### 9 2498 #### [facility] of [place] [address] Supervisor Wrapping Room: Jadon Velez MD Sodium [Moles/Vol] 138 mmol/L Normal 135-146 [facility] Comment on above: Performed By: #### 9 2498 #### [facility] of [place] [address] Supervisor Wrapping Room: Jadon Velez MD Urea nitrogen [Mass/Vol] 39 mg/dL High 7-25 [facility] Comment on above: Performed By: #### 9 7238 #### [facility] of [address], [address] [place] [address] Supervisor Wrapping Room: Jadon Velez MD Urea nitrogen/Creatinine [Mass ratio] 20 mg/mg Normal 6-22 [facility] Comment on above: Performed By: #### 9 2498 #### [facility] [address], [address] [place] [address] Supervisor Wrapping Room: Jadon Velez MD APTT HEPARIN COVERAGEon aPTT Coag (Bld) [Time] 86 s High 23-34 [facility] Comment on above: Order Comment: Thera peutic range for APTT's is 68 - 104 seconds Performed By: #### 4 6848 ####[facility] [address] [place] [address] Moody Martinez M.D. 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 Performed By: #### 4 6138 #### [facility] [address] [place] [address] Moody Martinez M.D. 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 [id number] CBCon 03-05-2025 AUTO NRBC 0.0 % Normal [facility] Comment on above: Performed By: #### 4 5218 #### LAB [address] [place] [address] Moody Martinez M.D. [id number] AUTO NRBC ABS COUNT 0.00 K/mcL Normal 0.00-0.00 [facility] Comment on above: Performed By: #### 4 5218 #### [facility] [address] [place] [address] Moody Martinez M.D. [id number] Erythrocyte distribution width (RBC) [Ratio] 13.0 % Normal 11.6-14.8 [facility] Comment on above: Performed By: #### 4 5218 #### [facility] [address] [place] [address] Moody Martinez M.D. [id number] Hematocrit (Bld) [Volume fraction] 28.4 % Low 41.0-53.0 [facility] Comment on above: Performed By: #### 4 5218 #### LAB [address] [place] [address] Moody Martinez M.D. [id number] Hemoglobin (Bld) [Mass/Vol] 9.3 g/dL Low 13.5-17.5 [facility] Comment on above: Performed By: #### 4 5218 #### [facility] [address] [place] [address] Moody Martinez M.D. [id number] MCH (RBC) [Entitic mass] 30.3 pg Normal 26.0-34.0 [facility] Comment on above: Performed By: #### 4 5218 #### LAB [address] [place] [address] Moody Martinez M.D. [id number] MCV (RBC) [Entitic vol] 92.5 fL Normal 80.0-100.0 [facility] Comment on above: Performed By: #### 4 5218 #### LAB [address] [place] [address] Moody Martinez M.D. [id number] MEAN CORPUSCULAR HEMOGLOBIN CONC 32.7 g/dL Normal 31.0-37.0 [facility] Comment on above: Performed By: #### 4 5218 #### [facility] [address] [place] [address] Moody Martinez M.D. [id number] Platelet mean volume (Bld) [Entitic vol] 11.8 fL Normal 9.4-12.4 [facility] Comment on above: Performed By: #### 4 5218 #### [facility] [address] [place] [address] Moody Martinez M.D. [id number] Platelets (Bld) [#/Vol] 191 10*3/uL Normal 150-400 [facility] Comment on above: Performed By: #### 4 5218 #### LAB [address] [place] [address] Moody Martinez M.D. [id number] RBC (Bld) [#/Vol] 3.07 10*6/uL Low 4.50-5.90 [facility] Comment on above: Performed By: #### 4 5218 #### LAB [address] [place] [address] Moody Martinez M.D. [id number] WBC (Bld) [#/Vol] 9.14 10*3/uL Normal 4.50-11.00 [facility] Comment on above: Performed By: #### 4 5218 #### LAB [address] [place] [address] Moody Martinez M.D. [id number] MAGNESIUM LEVELon 03-05-2025 Magnesium [Mass/Vol] 2.2 mg/dL Normal 1.6-2.4 [facility] Comment on above: Performed By: #### 4 6109 ####[facility] [address] [place] [address] Moody Martinez M.D. [id number] [facility] Glucose [Mass/Vol] 249 mg/dL High [address] [place] [address] Comment on above: Performed By: #### 4 6932 ####[facility] [address] [place] [address] Moody Martinez M.D. [id number] Glucose [Mass/Vol] 188 mg/dL High [address] [place] [address] Comment on above: Performed By: #### 4 6932 ####[facility] [address] [place] [address] Moody Martinez M.D. [id number] Glucose [Mass/Vol] 115 mg/dL [address] Comment on above: Performed By: #### 4 6932 ####[facility] [address] [place] [address] Moody Martinez M.D. [id number] POTASSIUM LEVELon 03-05-2025 Potassium [Moles/Vol] 3.4 mmol/L Low 3.5-5.1 [facility] Comment on above: Performed By: #### 4 6351 #### [facility] [address] [place] [address] Moody Martinez M.D. [id number] APTT HEPARIN COVERAGEon aPTT Coag (Bld) [Time] 72 s High 23-34 [facility] Comment on above: Order Comment: Thera peutic range for APTT's is 68 - 104 seconds Performed By: #### 4 4014 #### [facility] [address] [place] [address] Moody Martinez M.D. [id number] BASIC METABOLIC PANELon Anion gap [Moles/Vol] 16 mmol/L Normal 10-20 [facility] Comment on above: Order Comment: [facility] has implemented the eGFR calculation approach that does not have a coefficient for race that conforms to the NKF-ASN Task Force Recommendations. Performed By: #### 4 6124 #### [facility] [address] [place] [address] Moody Martinez M.D. [id number] Calcium [Mass/Vol] 8.3 mg/dL Low 8.4-10.2 [facility] Comment on above: Order Comment: [facility] [employer] has implemented the eGFR calculation approach that does not have a coefficient for race that conforms to the NKF-ASN Task Force Recommendations. Performed By: #### 4 6124 #### [facility] [address] [place] [address] Moody Martinez M.D. [id number] Chloride [Moles/Vol] 103 mmol/L Normal 98-108 [facility] Comment on above: Order Comment: [facility] [employer] has implemented the eGFR calculation approach that does not have a coefficient for race that conforms to the NKF-ASN Task Force Recommendations. Performed By: #### 4 6124 #### [facility] [address] [place] [address] Moody Martinez M.D. [id number] Creatinine [Mass/Vol] 1.89 mg/dL High 0.80-1.30 [facility] Comment on above: Order Comment: [facility] [employer] has implemented the eGFR calculation approach that does not have a coefficient for race that conforms to the NKF-ASN Task Force Recommendations. Performed By: #### 4 6124 #### [facility] [address] [place] [address] Moody Martinez M.D. [id number] EGFR 35 mL/min/1.73 m2 Low >=60 [facility] Comment on above: Order Comment: [facility] [employer] has implemented the eGFR calculation approach that does not have a coefficient for race that conforms to the NKF-ASN Task Force Recommendations. Result Comment: Albin mated GFR was calculated using the 2020 CKD-EPI creatinine equation. Performed By: #### 4 6124 #### [facility] [address] [place] [address] Moody Martinez M.D. [id number] Glucose [Mass/Vol] 190 mg/dL High 65-99 [facility] Comment on above: Order Comment: [facility] has implemented the eGFR calculation approach that does not have a coefficient for race that conforms to the NKF-ASN Task Force Recommendations. Performed By: #### 4 6124 #### [facility] [address] [place] [address] Moody Martinez M.D. [id number] HCO3 (Bld) [Moles/Vol] 25 mmol/L Normal 21-32 [facility] Comment on above: Order Comment: [facility] [employer] has implemented the eGFR calculation approach that does not have a coefficient for race that conforms to the NKF-ASN Task Force Recommendations. Performed By: #### 4 6124 #### [facility] [address] [place] [address] Moody Martinez M.D. [id number] Potassium [Moles/Vol] 3.5 mmol/L Normal 3.5-5.1 [facility] Comment on above: Order Comment: [facility] [employer] has implemented the eGFR calculation approach that does not have a coefficient for race that conforms to the NKF-ASN Task Force Recommendations. Performed By: #### 4 6124 #### [facility] [address] [place] [address] Moody Martinez M.D. [id number] Sodium [Moles/Vol] 140 mmol/L Normal 135-145 [facility] Comment on above: Order Comment: [facility] [employer] has implemented the eGFR calculation approach that does not have a coefficient for race that conforms to the NKF-ASN Task Force Recommendations. Performed By: #### 4 6125 #### [facility] [address] [place] [address] Moody Martinez M.D. [id number] Urea nitrogen [Mass/Vol] 45 mg/dL High 8-25 [facility] Comment on above: Order Comment: [facility] [employer] has implemented the eGFR calculation approach that does not have a coefficient for race that conforms to the NKF-ASN Task Force Recommendations. Performed By: #### 4 6124 #### [facility] [address] [place] [address] Moody Martinez M.D. [id number] Urea nitrogen/Creatinine [Mass ratio] 23.8 mg/mg High 10.0-20.0 [facility] Comment on above: Order Comment: [facility] has implemented the eGFR calculation approach that does not have a coefficient for race that conforms to the NKF-ASN Task Force Recommendations. Performed By: #### 4 6124 #### [facility] [address] [place] [address] Moody Martinez M.D. [id number] CBCon 03-04-2025 AUTO NRBC 0.0 % Normal [facility] Comment on above: Performed By: #### 4 5218 #### [facility] [address] [place] [address] Moody Martinez M.D. [id number] AUTO NRBC ABS COUNT 0.00 K/mcL Normal 0.00-0.00 [facility] Comment on above: Performed By: #### 4 5218 #### [facility] [address] [place] [address] Moody Martinez M.D. [id number] Erythrocyte distribution width (RBC) [Ratio] 13.1 % Normal 11.6-14.8 [facility] Comment on above: Performed By: #### 4 5218 #### [facility] [address] [place] [address] Moody Martinez M.D. [id number] Hematocrit (Bld) [Volume fraction] 28.1 % Low 41.0-53.0 [facility] Comment on above: Performed By: #### 4 5218 #### [facility] [address] [place] [address] Moody Martinez M.D. [id number] Hemoglobin (Bld) [Mass/Vol] 9.0 g/dL Low 13.5-17.5 [facility] Comment on above: Performed By: #### 4 5218 #### [facility] [address] [place] [address] Moody Martinez M.D. [id number] MCH (RBC) [Entitic mass] 30.6 pg Normal 26.0-34.0 [facility] Comment on above: Performed By: #### 4 5218 #### [facility] [address] [place] [address] Moody Martinez M.D. [id number] MCV (RBC) [Entitic vol] 95.6 fL Normal 80.0-100.0 [facility] Comment on above: Performed By: #### 4 5218 #### LAB [address] [place] [address] Moody Martinez M.D. [id number] MEAN CORPUSCULAR HEMOGLOBIN CONC 32.0 g/dL Normal 31.0-37.0 [facility] Comment on above: Performed By: #### 4 5218 #### [facility] [address] [place] [address] Moody Martinez M.D. [id number] Platelet mean volume (Bld) [Entitic vol] 11.8 fL Normal 9.4-12.4 [facility] Comment on above: Performed By: #### 4 5218 #### [facility] [address] [place] [address] Moody Martinez M.D. [id number] Platelets (Bld) [#/Vol] 175 10*3/uL Normal 150-400 [facility] Comment on above: Performed By: #### 4 5218 #### [facility] [address] [place] [address] Moody Martinez M.D. [id number] RBC (Bld) [#/Vol] 2.94 10*6/uL Low 4.50-5.90 [facility] Comment on above: Performed By: #### 4 5218 #### [facility] [address] [place] [address] Moody Martinez M.D. [id number] WBC (Bld) [#/Vol] 8.08 10*3/uL Normal 4.50-11.00 [facility] Comment on above: Performed By: #### 4 5218 #### [facility] [address] [place] [address] Moody Martinez M.D. [id number] MAGNESIUM LEVELon 03-04-2025 Magnesium [Mass/Vol] 2.2 mg/dL Normal 1.6-2.4 [facility] Comment on above: Performed By: #### 4 6109 #### [facility] [address] [address] Moody Martinez M.D. [id number] POC GLUCOSE - [facility] 025 Glucose [Mass/Vol] 51 mg/dL Off scale low [address] [place] [address] Comment on above: Order Comment: Criti christian result acted upon time of test. Test performed at bedside. Performed By: #### 4 6932 ####[facility] [address] [address] Moody Martinez M.D. [id number] Glucose [Mass/Vol] 354 mg/dL [address] Comment on above: Performed By: #### 4 6932 ####[facility] [address] [address] Moody Martinez M.D. [id number] Glucose [Mass/Vol] 338 mg/dL [address] Comment on above: Performed By: #### 4 6932 #### [facility] [address] [place] [address] Moody Martinez M.D. [id number] Glucose [Mass/Vol] 258 mg/dL [address] Comment on above: Performed By: #### 4 6932 ####[facility] [address] [address] Moody Martinez M.D. [id number] Glucose [Mass/Vol] 242 mg/dL [address] Comment on above: Performed By: #### 4 6916 ####[facility] [address] [address] Moody Martinez M.D. [id number] POTASSIUM LEVELon 03-04-2025 Potassium [Moles/Vol] 4.1 mmol/L Normal 3.5-5.1 [facility] Comment on above: Result Comment: Slchuy htly Hemolyzed Performed By: #### 4 6351 ####[facility] [address] [address] Moody Martinez M.D. [id number] TROPONIN (ONCE)on 03-04-2025 BASELINE TROPONIN T NG/L 1494 ng/L Off scale high <=22 [facility] Comment on above: Performed By: #### L [id number] ####[facility] [address] [address] Moody Martinez M.D. [id number] TROPONIN T INTERPRETATION Possible acute cardiac injury. Normal [facility] Comment on above: Performed By: #### L [id number] ####[facility] [address] [address] Moody Martinez M.D. [id number] APTT HEPARIN COVERAGEon 05 aPTT Coag (Bld) [Time] 82 s High 23-34 [facility] Comment on above: Order Comment: Thera peutic range for APTT's is 68 - 104 seconds Performed By: #### 4 6932 #### [facility] [address] [address] Moody Martinez M.D. [id number] aPTT Coag (Bld) [Time] 92 s High 23-34 [facility] Comment on above: Order Comment: Thera peutic range for APTT's is 68 - 104 seconds Performed By: #### 4 6848 ####[facility] [address] [address] Moody Martinez M.D. 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 [id number] BASIC METABOLIC PANELon 05-0 Anion gap [Moles/Vol] 15 mmol/L Normal 10-20 [facility] Comment on above: Order Comment: [facility] has implemented the eGFR calculation approach that does not have a coefficient for race that conforms to the NKF-ASN Task Force Recommendations. Performed By: #### 4 6124 #### LAB [address] [address] Moody Martinez M.D. [id number] Calcium [Mass/Vol] 8.3 mg/dL Low 8.4-10.2 [facility] Comment on above: Order Comment: [facility] [employer] has implemented the eGFR calculation approach that does not have a coefficient for race that conforms to the NKF-ASN Task Force Recommendations. Performed By: #### 4 6124 #### LAB [address] [address] Moody Martinez M.D. [id number] Chloride [Moles/Vol] 103 mmol/L Normal 98-108 [facility] Comment on above: Order Comment: [facility] [employer] has implemented the eGFR calculation approach that does not have a coefficient for race that conforms to the NKF-ASN Task Force Recommendations. Performed By: #### 4 6124 #### LAB [address] [address] Moody Martinez M.D. [id number] Creatinine [Mass/Vol] 2.09 mg/dL High 0.80-1.30 [facility] Comment on above: Order Comment: [facility] has implemented the eGFR calculation approach that does not have a coefficient for race that conforms to the NKF-ASN Task Force Recommendations. Performed By: #### 4 6124 #### LAB [address] [address] Moody Martinez M.D. [id number] EGFR 31 mL/min/1.73 m2 Low >=60 [facility] Comment on above: Order Comment: [facility] has implemented the eGFR calculation approach that does not have a coefficient for race that conforms to the NKF-ASN Task Force Recommendations. Result Comment: Albin mated GFR was calculated using the 2020 CKD-EPI creatinine equation. Performed By: #### 4 6124 #### LAB [address] [address] Moody Martinez M.D. [id number] Glucose [Mass/Vol] 240 mg/dL High 65-99 [facility] Comment on above: Order Comment: [facility] has implemented the eGFR calculation approach that does not have a coefficient for race that conforms to the NKF-ASN Task Force Recommendations. Performed By: #### 4 6124 #### LAB [address] [address] Moody Martinez M.D. [id number] HCO3 (Bld) [Moles/Vol] 26 mmol/L Normal 21-32 [facility] Comment on above: Order Comment: [facility] [employer] has implemented the eGFR calculation approach that does not have a coefficient for race that conforms to the NKF-ASN Task Force Recommendations. Performed By: #### 4 6124 #### LAB [address] [address] Moody Martinez M.D. [id number] Potassium [Moles/Vol] 3.6 mmol/L Normal 3.5-5.1 [facility] Comment on above: Order Comment: [facility] [employer] has implemented the eGFR calculation approach that does not have a coefficient for race that conforms to the NKF-ASN Task Force Recommendations. Performed By: #### 4 6124 #### LAB [address] [address] Moody Martinez M.D. [id number] Sodium [Moles/Vol] 140 mmol/L Normal 135-145 [facility] Comment on above: Order Comment: [facility] [employer] has implemented the eGFR calculation approach that does not have a coefficient for race that conforms to the NKF-ASN Task Force Recommendations. Performed By: #### 4 6124 #### LAB [address] [address] Moody Martinez M.D. [id number] Urea nitrogen [Mass/Vol] 49 mg/dL High 8-25 [facility] Comment on above: Order Comment: [facility] has implemented the eGFR calculation approach that does not have a coefficient for race that conforms to the NKF-ASN Task Force Recommendations. Performed By: #### 4 6124 #### LAB [address] [address] Moody Martinez M.D. [id number] Urea nitrogen/Creatinine [Mass ratio] 23.4 mg/mg High 10.0-20.0 [facility] Comment on above: Order Comment: [facility] has implemented the eGFR calculation approach that does not have a coefficient for race that conforms to the NKF-ASN Task Force Recommendations. Performed By: #### 4 6124 #### LAB [address] [address] Moody Martinez M.D. [id number] CBCon 03-03-2025 AUTO NRBC 0.0 % Normal [facility] Comment on above: Performed By: #### 4 [id number] #### LAB [address] [address] Moody Martinez M.D. [id number] AUTO NRBC ABS COUNT 0.00 K/mcL Normal 0.00-0.00 [facility] Comment on above: Performed By: #### 4 [id number] #### LAB [address] [id number] Moody Martinez M.D. [id number] Erythrocyte distribution width (RBC) [Ratio] 13.5 % Normal 11.6-14.8 [facility] Comment on above: Performed By: #### 4 [id number] #### LAB [address] [address] Moody Martinez M.D. [id number] Hematocrit (Bld) [Volume fraction] 28.5 % Low 41.0-53.0 [facility] Comment on above: Performed By: #### 4 5218 #### LAB [address] [address] Moody Martinez M.D. [id number] Hemoglobin (Bld) [Mass/Vol] 9.3 g/dL Low 13.5-17.5 [facility] Comment on above: Performed By: #### 4 5218 #### LAB [address] [address] Moody Martinez M.D. [id number] MCH (RBC) [Entitic mass] 30.8 pg Normal 26.0-34.0 [facility] Comment on above: Performed By: #### 4 [id number] #### LAB [address] [address] Moody Martinez M.D. [id number] MCV (RBC) [Entitic vol] 94.4 fL Normal 80.0-100.0 [facility] Comment on above: Performed By: #### 4 [id number] #### LAB [address] [address] Moody Martinez M.D. [id number] MEAN CORPUSCULAR HEMOGLOBIN CONC 32.6 g/dL Normal 31.0-37.0 [facility] Comment on above: Performed By: #### 4 [id number] #### LAB [address] [address] Moody Martinez M.D. [id number] Platelet mean volume (Bld) [Entitic vol] 11.8 fL Normal 9.4-12.4 [facility] Comment on above: Performed By: #### 4 [id number] #### LAB [address] [address] Moody Martinez M.D. [id number] Platelets (Bld) [#/Vol] 159 10*3/uL Normal 150-400 [facility] Comment on above: Performed By: #### 4 [id number] #### LAB [address] [address] Moody Martinez M.D. [id number] RBC (Bld) [#/Vol] 3.02 10*6/uL Low 4.50-5.90 [facility] Comment on above: Performed By: #### 4 5218 ####[facility] LAB [address] [address] Moody Martinez M.D. [id number] WBC (Bld) [#/Vol] 10.19 10*3/uL Normal 4.50-11.00 [facility] Comment on above: Performed By: #### 4 5218 ####[facility] LAB [address] [address] Moody Martinez M.D. [id number] MAGNESIUM LEVELon 03-03-2025 Magnesium [Mass/Vol] 2.3 mg/dL Normal 1.6-2.4 [facility] Comment on above: Performed By: #### 4 6109 ####[facility] LAB [address] [address] Moody Martinez M.D. [id number] POC GLUCOSE - [facility] 025 Glucose [Mass/Vol] 221 mg/dL High [address] [place] [address] Comment on above: Performed By: #### L [id number] #### [facility] LAB [address] [address] Moody Martinez M.D. [id number] Glucose [Mass/Vol] 189 mg/dL High [address] [place] [address] Comment on above: Performed By: #### 4 6932 ####[facility] LAB [address] [address] Moody Martinez M.D. [id number] Glucose [Mass/Vol] 91 mg/dL Normal [address] [place] [address] Comment on above: Performed By: #### 4 6932 ####[facility] LAB [address] [address] Moody Martinez M.D. [id number] Glucose [Mass/Vol] 146 mg/dL High [address] [place] [address] Comment on above: Performed By: #### 4 6932 ####[facility] LAB [address] [id number] Moody Martinez M.D. [id number] TROPONIN (ONCE)on 03-03-2025 BASELINE TROPONIN T NG/L 1524 ng/L Off scale high <=22 [facility] Comment on above: Performed By: #### 4 6932 #### LAB [address] [address] Moody Martinez M.D. [id number] TROPONIN T INTERPRETATION Possible acute cardiac injury. Normal [facility] Comment on above: Performed By: #### 4 6932 #### LAB [address] [address] Moody Martinez M.D. [id number] APTT HEPARIN COVERAGEon aPTT Coag (d) [Time] 97 s High 23-34 [facility] Comment on above: Order Comment: Thera peutic range for APTT's is 68 - 104 seconds Performed By: #### 4 6848 #### LAB [address] [address] Moody Martinez M.D. [id number] BASIC METABOLIC PANELon Anion gap [Moles/Vol] 17 mmol/L Normal 10-20 [facility] Comment on above: Order Comment: [facility] has implemented the eGFR calculation approach that does not have a coefficient for race that conforms to the NKF-ASN Task Force Recommendations. Performed By: #### 4 6124 #### LAB [address] [address] Moody Martinez M.D. [id number] Calcium [Mass/Vol] 8.7 mg/dL Normal 8.4-10.2 [facility] Comment on above: Order Comment: [facility] has implemented the eGFR calculation approach that does not have a coefficient for race that conforms to the NKF-ASN Task Force Recommendations. Performed By: #### 4 6124 #### LAB [address] [address] Moody Martinez M.D. [id number] Chloride [Moles/Vol] 101 mmol/L Normal 98-108 [facility] Comment on above: Order Comment: [facility] has implemented the eGFR calculation approach that does not have a coefficient for race that conforms to the NKF-ASN Task Force Recommendations. Performed By: #### 4 6124 #### LAB [address] [place], [place] [address] Moody Martinez M.D. [id number] Creatinine [Mass/Vol] 2.16 mg/dL High 0.80-1.30 [facility] Comment on above: Order Comment: [facility] has implemented the eGFR calculation approach that does not have a coefficient for race that conforms to the NKF-ASN Task Force Recommendations. Performed By: #### 4 6124 #### LAB [address] [address] Moody Martinez M.D. [id number] EGFR 30 mL/min/1.73 m2 Low >=60 [facility] Comment on above: Order Comment: [facility] [employer] has implemented the eGFR calculation approach that does not have a coefficient for race that conforms to the NKF-ASN Task Force Recommendations. Result Comment: Albin mated GFR was calculated using the 2020 CKD-EPI creatinine equation. Performed By: #### 4 6124 #### LAB [address] [address] Moody Martinez M.D. [id number] Glucose [Mass/Vol] 170 mg/dL High 65-99 [facility] Comment on above: Order Comment: [facility] [employer] has implemented the eGFR calculation approach that does not have a coefficient for race that conforms to the NKF-ASN Task Force Recommendations. Performed By: #### 4 6124 ####[facility] LAB [address] [address] Moody Martinez M.D. [id number] HCO3 (Bld) [Moles/Vol] 25 mmol/L Normal 21-32 [facility] Comment on above: Order Comment: [facility] has implemented the eGFR calculation approach that does not have a coefficient for race that conforms to the NKF-ASN Task Force Recommendations. Performed By: #### 4 6124 #### LAB [address] [place], [place] [address] Moody Martinez M.D. [id number] Potassium [Moles/Vol] 3.7 mmol/L Normal 3.5-5.1 [facility] Comment on above: Order Comment: [facility] has implemented the eGFR calculation approach that does not have a coefficient for race that conforms to the NKF-ASN Task Force Recommendations. Performed By: #### 4 6124 #### LAB [address] [address] Moody Martinez M.D. [id number] Sodium [Moles/Vol] 139 mmol/L Normal 135-145 [facility] Comment on above: Order Comment: [facility] has implemented the eGFR calculation approach that does not have a coefficient for race that conforms to the NKF-ASN Task Force Recommendations. Performed By: #### 4 6124 #### LAB [address] [address] Moody Martinez M.D. [id number] Urea nitrogen [Mass/Vol] 44 mg/dL High 8-25 [facility] Comment on above: Order Comment: [facility] [employer] has implemented the eGFR calculation approach that does not have a coefficient for race that conforms to the NKF-ASN Task Force Recommendations. Performed By: #### 4 6124 #### LAB [address] [address] Moody Martinez M.D. [id number] Urea nitrogen/Creatinine [Mass ratio] 20.4 mg/mg High 10.0-20.0 [facility] Comment on above: Order Comment: [facility] has implemented the eGFR calculation approach that does not have a coefficient for race that conforms to the NKF-ASN Task Force Recommendations. Performed By: #### 4 6124 #### LAB [address] [address] Moody Martinez M.D. [id number] CBCon 03-02-2025 AUTO NRBC 0.0 % Normal [facility] Comment on above: Order Comment: Injur y/Trauma or Illness?:Illness/Other How long have you had these symptoms (acute/chronic)?:Acute Reason for exam?:sob History of cancer?:. Surgeries, chemotherapy, or radiation?:cardiac catheterization Type of Exam?:Initial Additional signs and symptoms?:n Performed By: #### 4 [id number] #### LAB [address] [address] Moody Martinez M.D. [id number] AUTO NRBC ABS COUNT 0.00 K/mcL Normal 0.00-0.00 [facility] Comment on above: Order Comment: Injur y/Trauma or Illness?:Illness/Other How long have you had these symptoms (acute/chronic)?:Acute Reason for exam?:sob History of cancer?:. Surgeries, chemotherapy, or radiation?:cardiac catheterization Type of Exam?:Initial Additional signs and symptoms?:n Performed By: #### 4 5218 #### LAB [address] [address] Moody Martinez M.D. [id number] Erythrocyte distribution width (RBC) [Ratio] 13.4 % Normal 11.6-14.8 [facility] Comment on above: Order Comment: Injur y/Trauma or Illness?:Illness/Other How long have you had these symptoms (acute/chronic)?:Acute Reason for exam?:sob History of cancer?:. Surgeries, chemotherapy, or radiation?:cardiac catheterization Type of Exam?:Initial Additional signs and symptoms?:n Performed By: #### 4 5218 #### LAB [address] [address] Moody Martinez M.D. [id number] Hematocrit (Bld) [Volume fraction] 31.3 % Low 41.0-53.0 [facility] Comment on above: Order Comment: Injur y/Trauma or Illness?:Illness/Other How long have you had these symptoms (acute/chronic)?:Acute Reason for exam?:sob History of cancer?:. Surgeries, chemotherapy, or radiation?:cardiac catheterization Type of Exam?:Initial Additional signs and symptoms?:n Performed By: #### 4 5218 #### LAB [address] [address] Moody Martinez M.D. [id number] Hemoglobin (Bld) [Mass/Vol] 10.3 g/dL Low 13.5-17.5 [facility] Comment on above: Order Comment: Injur y/Trauma or Illness?:Illness/Other How long have you had these symptoms (acute/chronic)?:Acute Reason for exam?:sob History of cancer?:. Surgeries, chemotherapy, or radiation?:cardiac catheterization Type of Exam?:Initial Additional signs and symptoms?:n Performed By: #### 4 5218 #### LAB [address] [address] Moody Martinez M.D. [id number] MCH (RBC) [Entitic mass] 31.0 pg Normal 26.0-34.0 [facility] Comment on above: Order Comment: Injur y/Trauma or Illness?:Illness/Other How long have you had these symptoms (acute/chronic)?:Acute Reason for exam?:sob History of cancer?:. Surgeries, chemotherapy, or radiation?:cardiac catheterization Type of Exam?:Initial Additional signs and symptoms?:n Performed By: #### 4 [id number] #### LAB [address] [address] Moody Martinez M.D. [id number] MCV (RBC) [Entitic vol] 94.3 fL Normal 80.0-100.0 [facility] Comment on above: Order Comment: Injur y/Trauma or Illness?:Illness/Other How long have you had these symptoms (acute/chronic)?:Acute Reason for exam?:sob History of cancer?:. Surgeries, chemotherapy, or radiation?:cardiac catheterization Type of Exam?:Initial Additional signs and symptoms?:n Performed By: #### 4 [id number] #### LAB [address] [address] Moody Martinez M.D. [id number] MEAN CORPUSCULAR HEMOGLOBIN CONC 32.9 g/dL Normal 31.0-37.0 [facility] Comment on above: Order Comment: Injur y/Trauma or Illness?:Illness/Other How long have you had these symptoms (acute/chronic)?:Acute Reason for exam?:sob History of cancer?:. Surgeries, chemotherapy, or radiation?:cardiac catheterization Type of Exam?:Initial Additional signs and symptoms?:n Performed By: #### 4 [id number] #### LAB [address] [address] Moody Martinez M.D. [id number] Platelet mean volume (Bld) [Entitic vol] 11.6 fL Normal 9.4-12.4 [facility] Comment on above: Order Comment: Injur y/Trauma or Illness?:Illness/Other How long have you had these symptoms (acute/chronic)?:Acute Reason for exam?:sob History of cancer?:. Surgeries, chemotherapy, or radiation?:cardiac catheterization Type of Exam?:Initial Additional signs and symptoms?:n Performed By: #### 4 5218 #### LAB [address] [address] Moody Martinez M.D. [id number] Platelets (Bld) [#/Vol] 176 10*3/uL Normal 150-400 [facility] Comment on above: Order Comment: Injur y/Trauma or Illness?:Illness/Other How long have you had these symptoms (acute/chronic)?:Acute Reason for exam?:sob History of cancer?:. Surgeries, chemotherapy, or radiation?:cardiac catheterization Type of Exam?:Initial Additional signs and symptoms?:n Performed By: #### 4 [id number] #### LAB [address] [address] Moody Martinez M.D. [id number] RBC (Bld) [#/Vol] 3.32 10*6/uL Low 4.50-5.90 [facility] Comment on above: Order Comment: Injur y/Trauma or Illness?:Illness/Other How long have you had these symptoms (acute/chronic)?:Acute Reason for exam?:sob History of cancer?:. Surgeries, chemotherapy, or radiation?:cardiac catheterization Type of Exam?:Initial Additional signs and symptoms?:n Performed By: #### 4 5218 #### LAB [address] [address] Moody Martinez M.D. [id number] WBC (Bld) [#/Vol] 14.08 10*3/uL High 4.50-11.00 [facility] Comment on above: Order Comment: Injur y/Trauma or Illness?:Illness/Other How long have you had these symptoms (acute/chronic)?:Acute Reason for exam?:sob History of cancer?:. Surgeries, chemotherapy, or radiation?:cardiac catheterization Type of Exam?:Initial Additional signs and symptoms?:n Performed By: #### 4 5218 #### LAB [address] [address] Moody Martinez M.D. [id number] AUTO NRBC 0.0 % Normal [facility] Comment on above: Performed By: #### 4 5218 #### LAB [address] [address] Moody Martinez M.D. [id number] AUTO NRBC ABS COUNT 0.00 K/mcL Normal 0.00-0.00 [facility] Comment on above: Performed By: #### 4 5218 #### LAB [address] [address] Moody Martinez M.D. [id number] Erythrocyte distribution width (RBC) [Ratio] 13.4 % Normal 11.6-14.8 [facility] Comment on above: Performed By: #### 4 5218 #### LAB [address] [address] Moody Martinez M.D. [id number] Hematocrit (Bld) [Volume fraction] 34.4 % Low 41.0-53.0 [facility] Comment on above: Performed By: #### 4 5218 #### LAB [address] [address] Moody Martinez M.D. [id number] Hemoglobin (Bld) [Mass/Vol] 11.2 g/dL Low 13.5-17.5 [facility] Comment on above: Performed By: #### 4 5218 #### LAB [address] [address] Moody Martinez M.D. [id number] MCH (RBC) [Entitic mass] 31.1 pg Normal 26.0-34.0 [facility] Comment on above: Performed By: #### 4 5218 #### LAB [address] [address] Moody Martinez M.D. [id number] MCV (RBC) [Entitic vol] 95.6 fL Normal 80.0-100.0 [facility] Comment on above: Performed By: #### 4 5218 #### LAB [address] [address] Moody Martinez M.D. [id number] MEAN CORPUSCULAR HEMOGLOBIN CONC 32.6 g/dL Normal 31.0-37.0 [facility] Comment on above: Performed By: #### 4 5218 ####[facility] [address] [address] Moody Martinez M.D. [id number] Platelet mean volume (Bld) [Entitic vol] 11.4 fL Normal 9.4-12.4 [facility] Comment on above: Performed By: #### 4 5218 #### LAB [address] [address] Moody Martinez M.D. [id number] Platelets (Bld) [#/Vol] 189 10*3/uL Normal 150-400 [facility] Comment on above: Performed By: #### 4 5218 #### LAB [address] [address] Moody Martinez M.D. [id number] RBC (Bld) [#/Vol] 3.60 10*6/uL Low 4.50-5.90 [facility] Comment on above: Performed By: #### 4 5218 #### LAB [address] [address] Moody Martinez M.D. [id number] WBC (Bld) [#/Vol] 11.96 10*3/uL High 4.50-11.00 [facility] Comment on above: Performed By: #### 4 5218 #### LAB [address] [address] Moody Martinez M.D. [id number] CONSULTon 03-02-2025 CONSULT General Cardiology Inpatient Consult Heart & Vascular [facility] 03/02/2025 Diogenes Garay MD [facility] Patient: Enoc Fernandes Date of : 1945 [...] plan for further details. Diogenes Garay MD [facility] Non-Invasive Cardiology [facility] Heart and Vascular Subjective Reason for Consultation: [...] ventricle systolic pressure is 49 mmHg. 10/27/24 [facility] Left Main The vessel is moderate in [...] Skin: Negative. (more content not included)... 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 Left ventricular [...] Factors Hypertension: Yes Dyslipidemia: Yes Myocardial Infarction (FL): No Congestive Heart Failure (CHF): Hx CHF [...] mmHg MV VTI 35 cm MV Decel [place] 390 cm/s2 MV PHT 75 ms MV [...] Annular TDI (more content not included)... Normal [facility] MAGNESIUM LEVELon 03-02-2025 Magnesium [Mass/Vol] 2.2 mg/dL Normal 1.6-2.4 [facility] Comment on above: Performed By: #### 4 6109 ####[facility] LAB [address] [address] Moody Martinez M.D. [id number] NT PRO BNPon 03-02-2025 Natriuretic peptide B (Bld) [Mass/Vol] 08316 pg/mL High 0-300 [facility] Comment on above: Order Comment: [place] Study Cut-offsRule In:< /= 50 Years >450 pg/mL51 Years - 75 Years >900 pg/mL76 Years - 99 Years >1800 pg/mLRule Out:All patients <300 pg/mL Performed By: #### 4 [id number] ####[facility] LAB [address] [address] Moody Martinez M.D. [id number] POC GLUCOSE [facility] 025 Glucose [Mass/Vol] 287 mg/dL [address] Comment on above: Performed By: #### 4 6932 #### LAB [address] [address] Moody Martinez M.D. [id number] Glucose [Mass/Vol] 137 mg/dL [address] Comment on above: Performed By: #### 4 6932 ####[facility] LAB [address] [address] Moody Martinez M.D. [id number] Glucose [Mass/Vol] 252 mg/dL [address] Comment on above: Performed By: #### 4 6932 #### LAB [address] [address] Moody Martinez M.D. [id number] Glucose [Mass/Vol] 332 mg/dL [address] Comment on above: Performed By: #### 4 6932 ####[facility] [address] [address] Moody Martinez M.D. [id number] Glucose [Mass/Vol] 286 mg/dL [address] Comment on above: Performed By: #### 4 6932 #### LAB [address] [address] Moody Martinez M.D. [id number] Glucose [Mass/Vol] 168 mg/dL [address] Comment on above: Performed By: #### L [id number] #### LAB [address] [address] Moody Martinez M.D. [id number] Glucose [Mass/Vol] 186 mg/dL [address] Comment on above: Performed By: #### 4 6932 ####[facility] LAB [address] [address] Moody Martinez M.D. [id number] POTASSIUM LEVELon 03-02-2025 Potassium [Moles/Vol] 3.9 mmol/L Normal 3.5-5.1 [facility] Comment on above: Performed By: #### 4 6351 #### LAB [address] [address] Moody Martinez M.D. [id number] TROPONIN X 2 (NOW AND REPEAT IN 2 HOURS)on 03-02-2025 TROPONIN T DELTA CHANGE INTERPRETATION Delta troponin requires at least 2 hours between collections. [facility] Comment on above: Performed By: #### 4 6608 #### LAB [address] [address] Moody Martinez M.D. [id number] TROPONIN T NG/L 1447 ng/L Off scale high <=22 [facility] Comment on above: Performed By: #### 4 6608 #### LAB [address] [address] Moody Martinez M.D. [id number] BASELINE TROPONIN T NG/L 1309 ng/L Off scale high <=22 [facility] Comment on above: Performed By: #### 4 6608 #### LAB [address] [address] Moody Martinez M.D. [id number] TROPONIN T INTERPRETATION Possible acute cardiac injury. [facility] Comment on above: Performed By: #### 4 6608 #### LAB [address] [address] Moody Martinez M.D. [id number] XR CHEST PA/APon 03-02-2025 XR CHEST PA/AP [...] (HCC) J18.9 Pneumonia E11.10 DKA (diabetic ketoacidosis) ([facility]) COMPARISON: 02/28/2025. TECHNIQUE: Single portable semierect view. FINDINGS: Cardiac silhouette and mediastinal contours are stable. No pneumothorax or large pleural effusion. There is development of yalehcva-sm-eomhwt bilateral mixed interstitial and alveolar opacities in both lungs consistent with pulmonary edema; although, underlying pneumonia/aspiration is not excluded. IMPRESSION: Development of voikmrox-va-tfxkjk mixed interstitial and alveolar opacities in both lungs consistent with pulmonary edema. Underlying pneumonia/aspiration not excluded. No pneumothorax or large pleural effusion. [employer] Workstation ID: [id number] Dictated by: KAHLIL VARGHEES on WedMarch 02, 2025 2:36:56 PM EDT Transcribed by: AFUA RALPH on WedMarch 02, 2025 3:15:52 PM EDT Finalized by: KAHLIL VARGHESE on WedMarch 02, 2025 3:23:59 PM EDT Normal [facility] Comment on above: Order Comment: Injur y/Trauma or Illness?:Illness/OtherHow long have you had these symptoms (acute/chronic)?:AcuteReason for exam?:SOBHistory of cancer?:.Surgeries, chemotherapy, or radiation?:cardiac catheterizationType of Exam?:InitialAdditional signs and symptoms?:. BASIC METABOLIC PANELon 05-0 Anion gap [Moles/Vol] 15 mmol/L Normal 10-20 [facility] Comment on above: Order Comment: [facility] has implemented the eGFR calculation approach that does not have a coefficient for race that conforms to the NKF-ASN Task Force Recommendations. Performed By: #### 4 6178 #### LAB [address] [place], [place] [address] Moody Martinez M.D. [id number] Calcium [Mass/Vol] 8.7 mg/dL Normal 8.4-10.2 [facility] Comment on above: Order Comment: [facility] has implemented the eGFR calculation approach that does not have a coefficient for race that conforms to the NKF-ASN Task Force Recommendations. Performed By: #### 4 6190 #### LAB [address] [address] Moody Martinez M.D. [id number] Chloride [Moles/Vol] 104 mmol/L Normal 98-108 [facility] Comment on above: Order Comment: [facility] has implemented the eGFR calculation approach that does not have a coefficient for race that conforms to the NKF-ASN Task Force Recommendations. Performed By: #### 4 6124 #### LAB [address] [address] Moody Martinez M.D. [id number] Creatinine [Mass/Vol] 2.49 mg/dL High 0.80-1.30 [facility] Comment on above: Order Comment: [facility] has implemented the eGFR calculation approach that does not have a coefficient for race that conforms to the NKF-ASN Task Force Recommendations. Performed By: #### 4 6124 ####[facility] LAB [address] [address] Moody Martinez M.D. [id number] EGFR 25 mL/min/1.73 m2 Low >=60 [facility] Comment on above: Order Comment: [facility] has implemented the eGFR calculation approach that does not have a coefficient for race that conforms to the NKF-ASN Task Force Recommendations. Result Comment: Albin mated GFR was calculated using the 2020 CKD-EPI creatinine equation. Performed By: #### 4 6124 ####[facility] LAB [address] [address] Moody Martinez M.D. [id number] Glucose [Mass/Vol] 86 mg/dL Normal 65-99 [facility] Comment on above: Order Comment: [facility] has implemented the eGFR calculation approach that does not have a coefficient for race that conforms to the NKF-ASN Task Force Recommendations. Performed By: #### 4 6124 ####[facility] LAB [address] [address] Moody Martinez M.D. [id number] HCO3 (Bld) [Moles/Vol] 26 mmol/L Normal 21-32 [facility] Comment on above: Order Comment: [facility] has implemented the eGFR calculation approach that does not have a coefficient for race that conforms to the NKF-ASN Task Force Recommendations. Performed By: #### 4 6124 #### LAB [address] [address] Moody Martinez M.D. [id number] Potassium [Moles/Vol] 4.2 mmol/L Normal 3.5-5.1 [facility] Comment on above: Order Comment: [facility] has implemented the eGFR calculation approach that does not have a coefficient for race that conforms to the NKF-ASN Task Force Recommendations. Performed By: #### 4 6124 #### LAB [address] [address] Moody Martinez M.D. [id number] Sodium [Moles/Vol] 141 mmol/L Normal 135-145 [facility] Comment on above: Order Comment: [facility] has implemented the eGFR calculation approach that does not have a coefficient for race that conforms to the NKF-ASN Task Force Recommendations. Performed By: #### 4 6124 #### LAB [address] [address] Moody Martinez M.D. [id number] Urea nitrogen [Mass/Vol] 47 mg/dL High 8-25 [facility] Comment on above: Order Comment: [facility] has implemented the eGFR calculation approach that does not have a coefficient for race that conforms to the NKF-ASN Task Force Recommendations. Performed By: #### 4 6124 #### LAB [address] [address] Moody Martinez M.D. [id number] Urea nitrogen/Creatinine [Mass ratio] 18.9 mg/mg Normal 10.0-20.0 [facility] Comment on above: Order Comment: [facility] has implemented the eGFR calculation approach that does not have a coefficient for race that conforms to the NKF-ASN Task Force Recommendations. Performed By: #### 4 6124 #### LAB [address] [address] Moody Martinez M.D. [id number] CBCon 03-01-2025 AUTO NRBC 0.0 % Normal [facility] Comment on above: Performed By: #### 4 5218 #### LAB [address] [address] Moody Martinez M.D. [id number] AUTO NRBC ABS COUNT 0.00 K/mcL Normal 0.00-0.00 [facility] Comment on above: Performed By: #### 4 [id number] #### LAB [address] [address] Moody Martinez M.D. [id number] Erythrocyte distribution width (RBC) [Ratio] 13.7 % Normal 11.6-14.8 [facility] Comment on above: Performed By: #### 4 5218 #### LAB [address] [address] Moody Martinez M.D. [id number] Hematocrit (Bld) [Volume fraction] 29.8 % Low 41.0-53.0 [facility] Comment on above: Performed By: #### 4 5218 #### LAB [address] [address] Moody Martinez M.D. [id number] Hemoglobin (Bld) [Mass/Vol] 9.9 g/dL Low 13.5-17.5 [facility] Comment on above: Performed By: #### 4 5218 #### LAB [address] [address] Moody Martinez M.D. [id number] MCH (RBC) [Entitic mass] 31.0 pg Normal 26.0-34.0 [facility] Comment on above: Performed By: #### 4 [id number] #### LAB [address] [address] Moody Martinez M.D. [id number] MCV (RBC) [Entitic vol] 93.4 fL Normal 80.0-100.0 [facility] Comment on above: Performed By: #### 4 5218 #### LAB [address] [address] Moody Martinez M.D. [id number] MEAN CORPUSCULAR HEMOGLOBIN CONC 33.2 g/dL Normal 31.0-37.0 [facility] Comment on above: Performed By: #### 4 [id number] #### LAB [address] [address] Moody Martinez M.D. [id number] Platelet mean volume (Bld) [Entitic vol] 10.9 fL Normal 9.4-12.4 [facility] Comment on above: Performed By: #### 4 [id number] #### LAB [address] [address] Moody Martinez M.D. [id number] Platelets (Bld) [#/Vol] 186 10*3/uL Normal 150-400 [facility] Comment on above: Performed By: #### 4 [id number] #### LAB [address] [address] Moody Martinez M.D. [id number] RBC (Bld) [#/Vol] 3.19 10*6/uL Low 4.50-5.90 [facility] Comment on above: Performed By: #### 4 [id number] #### LAB [address] [address] Moody Martinez M.D. [id number] WBC (Bld) [#/Vol] 15.37 10*3/uL High 4.50-11.00 [facility] Comment on above: Performed By: #### 4 [id number] #### LAB [address] [address] Moody Martinez M.D. [id number] MAGNESIUM LEVELon 03-01-2025 Magnesium [Mass/Vol] 2.1 mg/dL Normal 1.6-2.4 [facility] Comment on above: Performed By: #### 4 6109 #### LAB [address] [address] Moody Martinez M.D. [id number] PHOSPHORUSon 03-01-2025 Phosphate [Mass/Vol] 4.3 mg/dL High 2.3-3.7 [facility] Comment on above: Performed By: #### 4 6299 ####[facility] LAB [address] [address] Moody Martinez M.D. [id number] POC GLUCOSE [facility] 025 Glucose [Mass/Vol] 249 mg/dL High [address] [place] [address] Comment on above: Performed By: #### 4 6932 ####[facility] LAB [address] [address] Moody Martinez M.D. [id number] Glucose [Mass/Vol] 79 mg/dL Normal [address] [place] [address] Comment on above: Performed By: #### 4 6932 #### LAB [address] [address] Moody Martinez M.D. [id number] Glucose [Mass/Vol] 237 mg/dL High [address] [place] [address] Comment on above: Performed By: #### 4 6932 #### LAB [address] [address] Moody Martinez M.D. [id number] Glucose [Mass/Vol] 85 mg/dL Normal [address] [place] [address] Comment on above: Performed By: #### 4 6932 #### LAB [address] [address] Moody Martinez M.D. [id number] Glucose [Mass/Vol] 167 mg/dL High [address] [place] [address] Comment on above: Performed By: #### 4 6932 #### LAB [address] [address] Moody Martinez M.D. [id number] BASIC METABOLIC PANELon 04-3 Anion gap [Moles/Vol] 16 mmol/L Normal - [facility] Comment on above: Order Comment: [facility] has implemented the eGFR calculation approach that does not have a coefficient for race that conforms to the NKF-ASN Task Force Recommendations. Performed By: #### 4 4014 #### LAB [address] [address] Moody Martinez M.D. [id number] Calcium [Mass/Vol] 9.5 mg/dL Normal 8.4-10.2 [facility] Comment on above: Order Comment: [facility] has implemented the eGFR calculation approach that does not have a coefficient for race that conforms to the NKF-ASN Task Force Recommendations. Performed By: #### 4 4014 #### [facility] LAB [address] [address] Moody Martinez M.D. [id number] Chloride [Moles/Vol] 103 mmol/L Normal 98-108 [facility] Comment on above: Order Comment: [facility] has implemented the eGFR calculation approach that does not have a coefficient for race that conforms to the NKF-ASN Task Force Recommendations. Performed By: #### 4 4014 #### [facility] LAB [address] [address] Moody Martinez M.D. [id number] Creatinine [Mass/Vol] 2.61 mg/dL High 0.80-1.30 [facility] Comment on above: Order Comment: [facility] has implemented the eGFR calculation approach that does not have a coefficient for race that conforms to the NKF-ASN Task Force Recommendations. Performed By: #### 4 4014 #### LAB [address] [address] Moody Martinez M.D. [id number] EGFR 24 mL/min/1.73 m2 Low >=60 [facility] Comment on above: Order Comment: [facility] has implemented the eGFR calculation approach that does not have a coefficient for race that conforms to the NKF-ASN Task Force Recommendations. Result Comment: Albin mated GFR was calculated using the 2020 CKD-EPI creatinine equation. Performed By: #### 4 4014 #### [facility] LAB [address] [address] Moody Martinez M.D. [id number] Glucose [Mass/Vol] 138 mg/dL High 65-99 [facility] Comment on above: Order Comment: [facility] has implemented the eGFR calculation approach that does not have a coefficient for race that conforms to the NKF-ASN Task Force Recommendations. Performed By: #### 4 4014 #### LAB [address] [address] Moody Martinez M.D. [id number] HCO3 (Bld) [Moles/Vol] 23 mmol/L Normal 21-32 [facility] Comment on above: Order Comment: [facility] has implemented the eGFR calculation approach that does not have a coefficient for race that conforms to the NKF-ASN Task Force Recommendations. Performed By: #### 4 4014 #### LAB [address] [address] Moody Martinez M.D. [id number] Potassium [Moles/Vol] 4.0 mmol/L Normal 3.5-5.1 [facility] Comment on above: Order Comment: [facility] has implemented the eGFR calculation approach that does not have a coefficient for race that conforms to the NKF-ASN Task Force Recommendations. Performed By: #### 4 4014 #### LAB [address] [address] Moody Martinez M.D. [id number] Sodium [Moles/Vol] 138 mmol/L Normal 135-145 [facility] Comment on above: Order Comment: [facility] has implemented the eGFR calculation approach that does not have a coefficient for race that conforms to the NKF-ASN Task Force Recommendations. Performed By: #### 4 4014 #### LAB [address] [address] Moody Martinez M.D. [id number] Urea nitrogen [Mass/Vol] 50 mg/dL High 8-25 [facility] Comment on above: Order Comment: [facility] has implemented the eGFR calculation approach that does not have a coefficient for race that conforms to the NKF-ASN Task Force Recommendations. Performed By: #### 4 4014 #### LAB [address] [address] Moody Martinez M.D. [id number] Urea nitrogen/Creatinine [Mass ratio] 19.2 mg/mg Normal 10.0-20.0 [facility] Comment on above: Order Comment: [facility] has implemented the eGFR calculation approach that does not have a coefficient for race that conforms to the NKF-ASN Task Force Recommendations. Performed By: #### 4 4014 #### LAB [address] [place], [place] [address] Moody Martinez M.D. [id number] Anion gap [Moles/Vol] 22 mmol/L High 10-20 [facility] Comment on above: Order Comment: Injur y/Trauma or Illness?:Illness/Other How long have you had these symptoms (acute/chronic)?:Acute Reason for exam?:cross clamp of aorta for CPB Type of Exam?:Initial Additional signs and symptoms?:cp Performed By: #### 4 6124 #### LAB [address] [address] Moody Martinez M.D. [id number] Calcium [Mass/Vol] 9.6 mg/dL Normal 8.4-10.2 [facility] Comment on above: Order Comment: Injur y/Trauma or Illness?:Illness/Other How long have you had these symptoms (acute/chronic)?:Acute Reason for exam?:cross clamp of aorta for CPB Type of Exam?:Initial Additional signs and symptoms?:cp Performed By: #### 4 6124 #### LAB [address] [address] Moody Martinez M.D. [id number] Chloride [Moles/Vol] 100 mmol/L Normal 98-108 [facility] Comment on above: Order Comment: Injur y/Trauma or Illness?:Illness/Other How long have you had these symptoms (acute/chronic)?:Acute Reason for exam?:cross clamp of aorta for CPB Type of Exam?:Initial Additional signs and symptoms?:cp Performed By: #### 4 6141 #### LAB [address] [address] Moody Martinez M.D. [id number] Creatinine [Mass/Vol] 2.69 mg/dL High 0.80-1.30 [facility] Comment on above: Order Comment: Injur y/Trauma or Illness?:Illness/Other How long have you had these symptoms (acute/chronic)?:Acute Reason for exam?:cross clamp of aorta for CPB Type of Exam?:Initial Additional signs and symptoms?:cp Performed By: #### 4 6124 #### LAB [address] [address] Moody Martinez M.D. [id number] EGFR 23 mL/min/1.73 m2 Low >=60 [facility] Comment on above: Order Comment: Injur y/Trauma or Illness?:Illness/Other How long have you had these symptoms (acute/chronic)?:Acute Reason for exam?:cross clamp of aorta for CPB Type of Exam?:Initial Additional signs and symptoms?:cp Result Comment: Albin mated GFR was calculated using the 2020 CKD-EPI creatinine equation. Performed By: #### 4 6124 #### LAB [address] [address] Moody Martinez M.D. [id number] Glucose [Mass/Vol] 426 mg/dL Off scale high 65-99 [facility] Comment on above: Order Comment: Injur y/Trauma or Illness?:Illness/Other How long have you had these symptoms (acute/chronic)?:Acute Reason for exam?:cross clamp of aorta for CPB Type of Exam?:Initial Additional signs and symptoms?:cp Performed By: #### 4 6124 #### LAB [address] [address] Moody Martinez M.D. [id number] HCO3 (Bld) [Moles/Vol] 19 mmol/L Low 21-32 [facility] Comment on above: Order Comment: Injur y/Trauma or Illness?:Illness/Other How long have you had these symptoms (acute/chronic)?:Acute Reason for exam?:cross clamp of aorta for CPB Type of Exam?:Initial Additional signs and symptoms?:cp Performed By: #### 4 6124 #### LAB [address] [address] Moody Martinez M.D. [id number] Potassium [Moles/Vol] 4.0 mmol/L Normal 3.5-5.1 [facility] Comment on above: Order Comment: Injur y/Trauma or Illness?:Illness/Other How long have you had these symptoms (acute/chronic)?:Acute Reason for exam?:cross clamp of aorta for CPB Type of Exam?:Initial Additional signs and symptoms?:cp Performed By: #### 4 6124 #### LAB [address] [address] Moody Martinez M.D. [id number] Sodium [Moles/Vol] 137 mmol/L Normal 135-145 [facility] Comment on above: Order Comment: Injur y/Trauma or Illness?:Illness/Other How long have you had these symptoms (acute/chronic)?:Acute Reason for exam?:cross clamp of aorta for CPB Type of Exam?:Initial Additional signs and symptoms?:cp Performed By: #### 4 6124 #### LAB [address] [address] Moody Martinez M.D. [id number] Urea nitrogen [Mass/Vol] 51 mg/dL High 8- [facility] Comment on above: Order Comment: Injur y/Trauma or Illness?:Illness/Other How long have you had these symptoms (acute/chronic)?:Acute Reason for exam?:cross clamp of aorta for CPB Type of Exam?:Initial Additional signs and symptoms?:cp Performed By: #### 4 6124 #### LAB [address] [address] Moody Martinez M.D. [id number] Urea nitrogen/Creatinine [Mass ratio] 19.0 mg/mg Normal 10.0-20.0 [facility] Comment on above: Order Comment: Injur y/Trauma or Illness?:Illness/Other How long have you had these symptoms (acute/chronic)?:Acute Reason for exam?:cross clamp of aorta for CPB Type of Exam?:Initial Additional signs and symptoms?:cp Performed By: #### 4 6124 #### LAB [address] [address] Moody Martinez M.D. [id number] Anion gap [Moles/Vol] 27 mmol/L High 10-20 [facility] Comment on above: Order Comment: [facility] has implemented the eGFR calculation approach that does not have a coefficient for race that conforms to the NKF-ASN Task Force Recommendations. Performed By: #### 4 6124 #### LAB [address] [place], [place] [address] Moody Martinez M.D. [id number] Calcium [Mass/Vol] 9.6 mg/dL Normal 8.4-10.2 [facility] Comment on above: Order Comment: [facility] has implemented the eGFR calculation approach that does not have a coefficient for race that conforms to the NKF-ASN Task Force Recommendations. Performed By: #### 4 6124 #### LAB [address] [place], [place] [address] Moody Martinez M.D. [id number] Chloride [Moles/Vol] 97 mmol/L Low 98-108 [facility] Comment on above: Order Comment: [facility] has implemented the eGFR calculation approach that does not have a coefficient for race that conforms to the NKF-ASN Task Force Recommendations. Performed By: #### 4 6124 #### LAB [address] [place], [place] [address] Moody Martinez M.D. [id number] Creatinine [Mass/Vol] 2.72 mg/dL High 0.80-1.30 [facility] Comment on above: Order Comment: [facility] has implemented the eGFR calculation approach that does not have a coefficient for race that conforms to the NKF-ASN Task Force Recommendations. Performed By: #### 4 6124 #### LAB [address] [place], [place] [address] Moody Martinez M.D. [id number] EGFR 23 mL/min/1.73 m2 Low >=60 [facility] Comment on above: Order Comment: [facility] has implemented the eGFR calculation approach that does not have a coefficient for race that conforms to the NKF-ASN Task Force Recommendations. Result Comment: Albin mated GFR was calculated using the 2020 CKD-EPI creatinine equation. Performed By: #### 4 6124 #### LAB [address] [address] Moody Martinez M.D. [id number] Glucose [Mass/Vol] 529 mg/dL Off scale high 65-99 [facility] Comment on above: Order Comment: [facility] has implemented the eGFR calculation approach that does not have a coefficient for race that conforms to the NKF-ASN Task Force Recommendations. Performed By: #### 4 6124 #### LAB [address] [address] Moody Martinez M.D. [id number] HCO3 (Bld) [Moles/Vol] 17 mmol/L Low 21-32 [facility] Comment on above: Order Comment: [facility] has implemented the eGFR calculation approach that does not have a coefficient for race that conforms to the NKF-ASN Task Force Recommendations. Performed By: #### 4 6124 #### LAB [address] [address] Moody Martinez M.D. [id number] Potassium [Moles/Vol] 4.5 mmol/L Normal 3.5-5.1 [facility] Comment on above: Order Comment: [facility] [employer] has implemented the eGFR calculation approach that does not have a coefficient for race that conforms to the NKF-ASN Task Force Recommendations. Performed By: #### 4 6124 #### LAB [address] [address] Moody Martinez M.D. [id number] Sodium [Moles/Vol] 136 mmol/L Normal 135-145 [facility] Comment on above: Order Comment: [facility] has implemented the eGFR calculation approach that does not have a coefficient for race that conforms to the NKF-ASN Task Force Recommendations. Performed By: #### 4 6124 ####[facility] LAB [address] [address] Moody Martinez M.D. [id number] Urea nitrogen [Mass/Vol] 52 mg/dL High 8-25 [facility] Comment on above: Order Comment: [facility] has implemented the eGFR calculation approach that does not have a coefficient for race that conforms to the NKF-ASN Task Force Recommendations. Performed By: #### 4 6124 #### LAB [address] [address] Moody Martinez M.D. [id number] Urea nitrogen/Creatinine [Mass ratio] 19.1 mg/mg Normal 10.0-20.0 [facility] Comment on above: Order Comment: [facility] has implemented the eGFR calculation approach that does not have a coefficient for race that conforms to the NKF-ASN Task Force Recommendations. Performed By: #### 4 6124 #### LAB [address] [address] Moody Martinez M.D. [id number] Anion gap [Moles/Vol] 28 mmol/L High 10-20 [facility] Comment on above: Order Comment: Injur y/Trauma or Illness?:Illness/Other How long have you had these symptoms (acute/chronic)?:Acute Reason for exam?:sob History of cancer?:. Surgeries, chemotherapy, or radiation?:cardiac catheterization Type of Exam?:Initial Additional signs and symptoms?:n Performed By: #### 4 6124 #### LAB [address] [address] Moody Martinez M.D. [id number] Calcium [Mass/Vol] 9.6 mg/dL Normal 8.4-10.2 [facility] Comment on above: Order Comment: Injur y/Trauma or Illness?:Illness/Other How long have you had these symptoms (acute/chronic)?:Acute Reason for exam?:sob History of cancer?:. Surgeries, chemotherapy, or radiation?:cardiac catheterization Type of Exam?:Initial Additional signs and symptoms?:n Performed By: #### 4 6124 #### LAB [address] [address] Moody Martinez M.D. [id number] Chloride [Moles/Vol] 97 mmol/L Low 98-108 [facility] Comment on above: Order Comment: Injur y/Trauma or Illness?:Illness/Other How long have you had these symptoms (acute/chronic)?:Acute Reason for exam?:sob History of cancer?:. Surgeries, chemotherapy, or radiation?:cardiac catheterization Type of Exam?:Initial Additional signs and symptoms?:n Performed By: #### 4 6124 #### LAB [address] [address] Moody Martinez M.D. [id number] Creatinine [Mass/Vol] 2.66 mg/dL High 0.80-1.30 [facility] Comment on above: Order Comment: Injur y/Trauma or Illness?:Illness/Other How long have you had these symptoms (acute/chronic)?:Acute Reason for exam?:sob History of cancer?:. Surgeries, chemotherapy, or radiation?:cardiac catheterization Type of Exam?:Initial Additional signs and symptoms?:n Performed By: #### 4 6174 #### LAB [address] [address] Moody Martinez M.D. [id number] EGFR 23 mL/min/1.73 m2 Low >=60 [facility] Comment on above: Order Comment: Injur y/Trauma or Illness?:Illness/Other How long have you had these symptoms (acute/chronic)?:Acute Reason for exam?:sob History of cancer?:. Surgeries, chemotherapy, or radiation?:cardiac catheterization Type of Exam?:Initial Additional signs and symptoms?:n Result Comment: Albin mated GFR was calculated using the 2020 CKD-EPI creatinine equation. Performed By: #### 4 6138 #### LAB [address] [address] Moody Martinez M.D. [id number] Glucose [Mass/Vol] 514 mg/dL Off scale high 65-99 [facility] Comment on above: Order Comment: Injur y/Trauma or Illness?:Illness/Other How long have you had these symptoms (acute/chronic)?:Acute Reason for exam?:sob History of cancer?:. Surgeries, chemotherapy, or radiation?:cardiac catheterization Type of Exam?:Initial Additional signs and symptoms?:n Performed By: #### 4 6130 #### LAB [address] [address] Moody Martinez M.D. [id number] HCO3 (Bld) [Moles/Vol] 18 mmol/L Low 21-32 [facility] Comment on above: Order Comment: Injur y/Trauma or Illness?:Illness/Other How long have you had these symptoms (acute/chronic)?:Acute Reason for exam?:sob History of cancer?:. Surgeries, chemotherapy, or radiation?:cardiac catheterization Type of Exam?:Initial Additional signs and symptoms?:n Performed By: #### 4 6124 #### LAB [address] [address] Moody Martinez M.D. [id number] Potassium [Moles/Vol] 5.9 mmol/L High 3.5-5.1 [facility] Comment on above: Order Comment: Injur y/Trauma or Illness?:Illness/Other How long have you had these symptoms (acute/chronic)?:Acute Reason for exam?:sob History of cancer?:. Surgeries, chemotherapy, or radiation?:cardiac catheterization Type of Exam?:Initial Additional signs and symptoms?:n Result Comment: Slig htly Hemolyzed Performed By: #### 4 6190 #### LAB [address] [address] Moody Martinez M.D. [id number] Sodium [Moles/Vol] 137 mmol/L Normal 135-145 [facility] Comment on above: Order Comment: Injur y/Trauma or Illness?:Illness/Other How long have you had these symptoms (acute/chronic)?:Acute Reason for exam?:sob History of cancer?:. Surgeries, chemotherapy, or radiation?:cardiac catheterization Type of Exam?:Initial Additional signs and symptoms?:n Performed By: #### 4 6183 #### LAB [address] [address] Moody Martinez M.D. [id number] Urea nitrogen [Mass/Vol] 50 mg/dL High 8-25 [facility] Comment on above: Order Comment: Injur y/Trauma or Illness?:Illness/Other How long have you had these symptoms (acute/chronic)?:Acute Reason for exam?:sob History of cancer?:. Surgeries, chemotherapy, or radiation?:cardiac catheterization Type of Exam?:Initial Additional signs and symptoms?:n Performed By: #### 4 6124 #### LAB [address] [address] Moody Martinez M.D. [id number] Urea nitrogen/Creatinine [Mass ratio] 18.8 mg/mg Normal 10.0-20.0 [facility] Comment on above: Order Comment: Injur y/Trauma or Illness?:Illness/Other How long have you had these symptoms (acute/chronic)?:Acute Reason for exam?:sob History of cancer?:. Surgeries, chemotherapy, or radiation?:cardiac catheterization Type of Exam?:Initial Additional signs and symptoms?:n Performed By: #### 4 6124 #### LAB [address] [address] Moody Martinez M.D. [id number] BETA-HYDROXYBUTYRATEon 02-28 BETA-HYDROXYBUTYRATE < Normal 0.0-0.3 [facility] Comment on above: Performed By: #### 4 5139 #### LAB [address] [address] Moody Martinez M.D. [id number] BETA-HYDROXYBUTYRATE 1.1 mmol/L High 0.0-0.3 [facility] Comment on above: Performed By: #### 4 5139 #### LAB [address] [address] Moody Martinez M.D. [id number] BETA-HYDROXYBUTYRATE 3.3 mmol/L High 0.0-0.3 [facility] Comment on above: Performed By: #### 4 4014 #### LAB [address] [address] Moody Martinez M.D. [id number] BETA-HYDROXYBUTYRATE 3.3 mmol/L High 0.0-0.3 [facility] Comment on above: Performed By: #### 4 4014 #### LAB [address] [address] Moody Martinez M.D. [id number] BLOOD CULTURE AEROBIC/ANAERO BICon 02-28-2025 BLOOD CULTURE AEROBIC/ANAEROBIC BLOOD CULTURE No Growth after 5 days [facility] Comment on above: Performed By: #### 4 4014 #### LAB [address] [address] Moody Martinez M.D. [id number] Performed By: #### 4 4014 #### LAB [address] [address] Moody Martinez M.D. [id number] CBC WITH AUTO DIFFERENTIALon 02-28-2025 AUTO NRBC 0.0 % [facility] Comment on above: Performed By: #### L [id number] #### LAB [address] [address] Moody Martinez M.D. [id number] AUTO NRBC ABS COUNT 0.00 K/mcL Normal 0.00-0.00 [facility] Comment on above: Performed By: #### L [id number] #### LAB [address] [address] Moody Martinez M.D. [id number] BASOPHILS ABSOLUTE COUNT 0.05 K/mcL Normal 0.00-0.30 [facility] Comment on above: Performed By: #### L [id number] #### LAB [address] [place] [address] Moody Martinez M.D. [id number] Basophils/100 WBC (Bld) 0.3 % [facility] Comment on above: Performed By: #### L [id number] #### LAB [address] [address] Moody Martinez M.D. [id number] Eosinophils (Bld) [#/Vol] 0.00 10*3/uL Normal 0.00-0.50 [facility] Comment on above: Performed By: #### L [id number] #### LAB [address] [place] [address] Moody Martinez M.D. [id number] Eosinophils/100 WBC (Bld) 0.0 % [facility] Comment on above: Performed By: #### L [id number] #### LAB [address] [address] Moody Martinez M.D. [id number] Erythrocyte distribution width (RBC) [Ratio] 13.5 % Normal 11.6-14.8 [facility] Comment on above: Performed By: #### L [id number] #### LAB [address] [address] Moody Martinez M.D. [id number] Hematocrit (Bld) [Volume fraction] 40.2 % Low 41.0-53.0 [facility] Comment on above: Performed By: #### L [id number] #### LAB [address] [address] Moody Martinez M.D. [id number] Hemoglobin (Bld) [Mass/Vol] 13.1 g/dL Low 13.5-17.5 [facility] Comment on above: Performed By: #### L [id number] #### LAB [address] [place] [address] Moody Martinez M.D. [id number] IG ABSOLUTE 0.16 K/mcL Normal 0.00-0.30 [facility] Comment on above: Performed By: #### L [id number] #### LAB [address] [place] [address] Moody Martinez M.D. [id number] IG PERCENT 0.80 % Normal [facility] Comment on above: Result Comment: The IG parameter is the percentage of metamyelocytes, myelocytes and promyelocytes. An immature granulocyte count (IG) of 1% or more suggests the possibility of infection, an IG count of 3% is very likely related to an infection. Performed By: #### L [id number] #### LAB [address] [place] [address] Moody Martinez M.D. [id number] Lymphocytes (Bld) [#/Vol] 1.13 10*3/uL Normal 0.90-4.00 [facility] Comment on above: Performed By: #### L [id number] #### LAB [address] [address] Moody Martinez M.D. [id number] Lymphocytes/100 WBC (Bld) 6.0 % Normal [facility] Comment on above: Performed By: #### L [id number] #### LAB [address] [address] Moody Martinez M.D. [id number] MCH (RBC) [Entitic mass] 30.8 pg Normal 26.0-34.0 [facility] Comment on above: Performed By: #### L [id number] #### LAB [address] [address] Moody Martinez M.D. [id number] MCV (RBC) [Entitic vol] 94.6 fL Normal 80.0-100.0 [facility] Comment on above: Performed By: #### L [id number] #### LAB [address] [address] Moody Martinez M.D. [id number] MEAN CORPUSCULAR HEMOGLOBIN CONC 32.6 g/dL Normal 31.0-37.0 [facility] Comment on above: Performed By: #### L [id number] #### LAB [address] [address] Moody Martinez M.D. [id number] Monocytes (Bld) [#/Vol] 0.91 10*3/uL High 0.30-0.90 [facility] Comment on above: Performed By: #### L [id number] #### LAB [address] [address] Moody Martinez M.D. [id number] Monocytes/100 WBC (Bld) 4.8 % Normal [facility] Comment on above: Performed By: #### L [id number] #### LAB [address] [address] Moody Martinez M.D. [id number] NEUTROPHILS ABSOLUTE COUNT 16.63 K/mcL High 1.70-7.00 [facility] Comment on above: Performed By: #### L [id number] #### LAB [address] [address] Moody Martinez M.D. [id number] Neutrophils/100 WBC (Bld) 88.1 % Normal [facility] Comment on above: Performed By: #### L [id number] #### LAB [address] [address] Moody Martinez M.D. [id number] Platelet mean volume (Bld) [Entitic vol] 11.1 fL Normal 9.4-12.4 [facility] Comment on above: Performed By: #### L [id number] #### LAB [address] [address] Moody Martinez M.D. [id number] Platelets (Bld) [#/Vol] 258 10*3/uL Normal 150-400 [facility] Comment on above: Performed By: #### L [id number] #### LAB [address] [address] Moody Martinez M.D. [id number] RBC (Bld) [#/Vol] 4.25 10*6/uL Low 4.50-5.90 [facility] Comment on above: Performed By: #### L [id number] #### LAB [address] [address] Moody Martinez M.D. [id number] WBC (Bld) [#/Vol] 18.88 10*3/uL High 4.50-11.00 [facility] Comment on above: Performed By: #### L [id number] #### LAB [address] [address] Moody Martinez M.D. [id number] COVID-19/INFLUENZA A,B MOLEC Celine 02-28-2025 SARS-CoV-2 (COVID-19) Ab IA Ql SARS-COV-2 (FERDINAND) Not Detected INFLUENZA A (FERDINAND) Not Detected INFLUENZA B (FERDINAND) Not Detected Normal Not Detected [facility] Comment on above: Performed By: #### L [id number] #### LAB [address] [place], [place] [address] Moody Martinez M.D. [id number] CRP, INFLAMMATIONon 02-29-20 CRP (INFLAMMATION) < Normal 0.0-10.0 [facility] Comment on above: Performed By: #### 4 5334 #### LAB [address] [place], [place] [address] Moody Martinez M.D. [id number] D-DIMER, QUANTITATIVEon 02-01 D-DIMER QUANTITATIVE 1.67 mcg/mL FEU High 0.27-0.49 [facility] Comment on above: Order Comment: A D-d [...] By: #### 4 5434 #### LAB [address] [place], [place] [address] Moody Martinez M.D. [id number] ED Procedureon 02-28-2025 ED Procedure ECG 12 Lead Date/Time: 02/28/2025 4:33 AM Performed by: Conchita Fulton MD Authorized by: Conchita Fulton MD Interpreted by ED attending physician Rhythm: sinus rhythm and sinus tachycardia BPM: 103 Clinical impression: sinus tachycardia Comments: CA interval 144 QRS duration 90 QTc 437 AUTHENTICATED BY CONCHITA FULTON, ON 02/28/2025 04:33:26 [facility] ED Procedure EKG 12-lead Date/Time: 02/28/2025 3:26 AM Performed by: Conchita Fulton MD Authorized by: Conchita Fulton MD Interpreted by ED attending physician Rhythm: sinus rhythm BPM: 88 Comments: CA interval 162 QRS duration 102 QTc 491 T wave inversion in lead III and aVF as well as V5 V6 AUTHENTICATED BY CONCHITA FULTON, ON 02/28/2025 03:26:34 [facility] ED Prov Noteon 02-28-2025 ED Prov Note [facility] EM[facility] ATTENDING NOTE: NAME: Enoc Fernandes CSN: [id number] 79 y.o. 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 Normal [facility] HEMOGLOBIN A1Con 02-28-2025 Glucose [Mass/Vol] 171 mg/dL High 74-114 [facility] Comment on above: Performed By: #### 4 8202 ####[facility] LAB [address] [place], [place] [address] Moody Martinez M.D. [id number] HbA1c (Bld) [Mass fraction] 7.6 % High 4.2-5.6 [facility] Comment on above: Performed By: #### 4 8202 ####[facility] LAB [address] [place], [place] [address] Moody Martinez M.D. [id number] LACTIC ACID, PLASMAon 2024 LACTIC ACID, PLASMA 2.9 mmol/L High 0.6-2.0 [facility] Comment on above: Performed By: #### 4 4014 #### [facility] [address] [place], [place] [address] Moody Martinez M.D. [id number] LEGIONELLA ANTIGEN, URINEon 02-28-2025 LEGIONELLA ANTIGEN, URINE LEGIONELLA ANTIGEN Negative for Legionella antigen COMMENT: Results may be affected if patient is on diuretics. INTERPRETATION OF RESULTS: Test detects Legionella pneumophilia serogroup 1 antigens in urine. Legionnaires disease cannot be ruled out since other serogroups and species may also cause disease. Normal [facility] Comment on above: Performed By: #### 4 4090 #### LAB [address] [address] Moody Martinez M.D. [id number] MRSA DNA AMPLIFIED PROBEon 0 02-28-2025 MRSA DNA AMPLIFIED PROBE Negative Normal Not Detected, MRSA NEGATIVE [facility] Comment on above: Performed By: #### 4 8061 #### LAB [address] [address] Moody Martinez M.D. [id number] NT PRO BNPon 02-28-2025 Natriuretic peptide B (Bld) [Mass/Vol] 9634 pg/mL [facility] 0300 [facility] Comment on above: Order Comment: Injur y/Trauma or Illness?:Illness/Other How long have you had these symptoms (acute/chronic)?:Acute Reason for exam?:sob History of cancer?:. Surgeries, chemotherapy, or radiation?:cardiac catheterization Type of Exam?:Initial Additional signs and symptoms?:n Performed By: #### 4 7395 #### LAB [address] [address] Moody Martinez M.D. [id number] Natriuretic peptide B (Bld) [Mass/Vol] 3396 pg/mL [facility] [address] Comment on above: Order Comment: Pride Study Cut-offsRule In:< /= 50 Years >450 pg/mL51 Years - 75 Years >900 pg/mL76 Years - 99 Years >1800 pg/mLRule Out:All patients <300 pg/mL Performed By: #### 4 7395 #### LAB [address] [address] Moody Martinez M.D. [id number] OSMOLALITYon 02-28-2025 Osmolality [Osmolality] 328 mosm/kg High 275-295 [facility] Comment on above: Performed By: #### 4 6230 #### LAB [address] [address] Moody Martinez M.D. [id number] PHOSPHORUSon 02-28-2025 Phosphate [Mass/Vol] 2.5 mg/dL Normal 2.3-3.7 [facility] Comment on above: Performed By: #### 4 6299 ####[facility] LAB [address] [address] Moody Martinez M.D. [id number] Phosphate [Mass/Vol] 2.7 mg/dL Normal 2.3-3.7 [facility] Comment on above: Performed By: #### 4 6299 #### LAB [address] [address] Moody Martinez M.D. [id number] Phosphate [Mass/Vol] 3.5 mg/dL Normal 2.3-3.7 [facility] Comment on above: Performed By: #### 4 6299 #### LAB [address] [address] Moody Martinez M.D. [id number] POC GLUCOSE [facility] 025 Glucose [Mass/Vol] 236 mg/dL High [address] [place] [address] Comment on above: Performed By: #### 4 6932 #### LAB [address] [address] Moody Martinez M.D. [id number] Glucose [Mass/Vol] 153 mg/dL High [address] [place] [address] Comment on above: Performed By: #### L [id number] #### [facility] LAB [address] [address] Moody Martinez M.D. [id number] Glucose [Mass/Vol] 57 mg/dL Low [address] [place] [address] Comment on above: Performed By: #### 4 6932 ####[facility] LAB [address] [address] Moody Martinez M.D. [id number] Glucose [Mass/Vol] 73 mg/dL Normal [address] [place] [address] Comment on above: Performed By: #### 4 6932 #### LAB [address] [address] Moody Martinez M.D. [id number] Glucose [Mass/Vol] 102 mg/dL [address] Comment on above: Performed By: #### L [id number] #### LAB [address] [address] Moody Martinez M.D. [id number] Glucose [Mass/Vol] 119 mg/dL [address] Comment on above: Performed By: #### 4 6932 #### [facility] [address] [address] Moody Martinez M.D. [id number] Glucose [Mass/Vol] 146 mg/dL [address] Comment on above: Performed By: #### 4 6932 ####[facility] [address] [address] Moody Martinez M.D. [id number] Glucose [Mass/Vol] 177 mg/dL [address] Comment on above: Performed By: #### 4 6932 #### LAB [address] [address] Moody Martinez M.D. [id number] Glucose [Mass/Vol] 241 mg/dL [address] Comment on above: Performed By: #### 4 6932 #### LAB [address] [address] Moody Martinez M.D. [id number] Glucose [Mass/Vol] 326 mg/dL [address] Comment on above: Performed By: #### 4 6968 ####[facility] LAB [address] [address] Moody Martinez M.D. [id number] Glucose [Mass/Vol] 429 mg/dL Off scale [address] Comment on above: Order Comment: Criti christian result acted upon time of test. Test performed at bedside. Performed By: #### 4 6932 ####[facility] LAB [address] [address] Moody Martinez M.D. [id number] POC GLUCOSE > Off scale high [address] [place] [address] Comment on above: Order Comment: Criti christian result acted upon time of test. Test performed at bedside. Performed By: #### 4 6932 ####[facility] LAB [address] [address] Moody Martinez M.D. [id number] POC GLUCOSE > Off scale high [address] [place] [address] Comment on above: Order Comment: Criti christian result acted upon time of test. Test performed at bedside. Performed By: #### 4 6932 ####[facility] LAB [address] [address] Moody Martinez M.D. [id number] POC VENOUS BLOOD GAS PANEL-P [facility] 02-28-2025 BASE EXCESS, VENOUS -5.7 Low -2.0-2.0 [facility] Comment on above: Performed By: #### 4 8717 ####[facility] LAB [address] [address] Moody Martinez M.D. [id number] FIO2 50 Normal [facility] Comment on above: Performed By: #### 4 8717 ####[facility] LAB [address] [address] Moody Martinez M.D. [id number] HCO3 (Bld) [Moles/Vol] 19.3 mmol/L Low 24.0-28.0 [facility] Comment on above: Performed By: #### 4 8717 ####[facility] LAB [address] [address] Moody Martinez M.D. [id number] Hematocrit (Bld) [Volume fraction] 37.3 % Low 41.0-53.0 [facility] Comment on above: Performed By: #### 4 8717 ####[facility] LAB [address] [address] Moody Martinez M.D. [id number] Hemoglobin (Bld) [Mass/Vol] 12.2 g/dL Low 13.5-17.5 [facility] Comment on above: Performed By: #### 4 8717 #### LAB [address] [address] Moody Martinez M.D. [id number] Oxygen saturation in Blood 93.7 % High 40.0-70.0 [facility] Comment on above: Performed By: #### 4 8717 #### LAB [address] [address] Moody Martinez M.D. [id number] PCO2 VENOUS 35.1 mm Hg Low 41.0-51.0 [facility] Comment on above: Performed By: #### 4 8717 #### LAB [address] [address] Moody Martinez M.D. [id number] PH VENOUS 7.35 Normal 7.32-7.42 [facility] Comment on above: Performed By: #### 4 8717 #### LAB [address] [address] Moody Martinez M.D. [id number] PO2 VENOUS 68 mm Hg High 25-40 [facility] Comment on above: Performed By: #### 4 8717 #### LAB [address] [address] Moody Martinez M.D. [id number] RESP RATE RAD 14 Normal [facility] Comment on above: Performed By: #### 4 8717 #### LAB [address] [address] Moody Martinez M.D. [id number] SPECIMEN SOURCE RADIANCE Not specified [facility] Comment on above: Performed By: #### 4 8717 #### LAB [address] [address] Moody Martinez M.D. [id number] BASE EXCESS, VENOUS -5.9 Low -2.0-2.0 [facility] Comment on above: Performed By: #### 4 8717 #### LAB [address] [address] Moody Martinez M.D. [id number] HCO3 (Bld) [Moles/Vol] 20.5 mmol/L Low 24.0-28.0 [facility] Comment on above: Performed By: #### 4 8717 ####[facility] LAB [address] [address] Moody Martinez M.D. [id number] Hematocrit (Bld) [Volume fraction] 42.0 % Normal 41.0-53.0 [facility] Comment on above: Performed By: #### 4 8717 ####[facility] [address] [address] Moody Martinez M.D. [id number] Hemoglobin (Bld) [Mass/Vol] 13.7 g/dL Normal 13.5-17.5 [facility] Comment on above: Performed By: #### 4 8717 ####[facility] [address] [place] [address] Moody Martinez M.D. [id number] LITER FLOW 2 Normal [facility] Comment on above: Performed By: #### 4 8717 ####[facility] [address] [address] Moody Martinez M.D. [id number] Oxygen saturation in Blood 50.9 % Normal 40.0-70.0 [facility] Comment on above: Performed By: #### 4 8717 #### LAB [address] [place] [address] Moody Martinez M.D. [id number] PCO2 VENOUS 43.1 mm Hg Normal 41.0-51.0 [facility] Comment on above: Performed By: #### 4 8717 ####[facility] LAB [address] [place] [address] Moody Martinez M.D. [id number] PH VENOUS 7.29 Low 7.32-7.42 [facility] Comment on above: Performed By: #### 4 8717 ####[facility] [address] [place] [address] Moody Martinez M.D. [id number] PO2 VENOUS 30 mm Hg Normal 25-40 [facility] Comment on above: Performed By: #### 4 8717 #### LAB [address] [place] [address] Moody Martinez M.D. [id number] SPECIMEN SOURCE RADIANCE Not specified Normal [facility] Comment on above: Performed By: #### 4 8717 #### LAB [address] [place] [address] Moody Martinez M.D. [id number] PROCALCITONINon 02-28-2025 PROCALCITONIN 0.18 ng/ml Normal <0.50 [facility] Comment on above: Order Comment: Resul ts <0.50 ng/ml represent a low risk of severe sepsis and/or septic shock. Performed By: #### 4 6932 #### LAB [address] [place] [address] Moody Martinez M.D. [id number] REFLEX LACTIC ACID, PLASMAon 02-28-2025 LACTIC ACID, PLASMA 2.0 mmol/L Normal 0.6-2.0 [facility] Comment on above: Performed By: #### 4 4014 #### LAB [address] [place] [address] Moody Martinez M.D. [id number] LACTIC ACID, PLASMA 3.5 mmol/L High 0.6-2.0 [facility] Comment on above: Performed By: #### L [id number] #### LAB [address] [place] [address] Moody Martinez M.D. [id number] RESPIRATORY PCR PANELon 02-01 RESPIRATORY PCR PANEL [...] SARS-COV-2 (BIOFIRE) Not Detected Normal Not Detected [facility] Comment on above: Performed By: #### L [id number] ####[facility] [address] [address] Jose Cisse M.D. [id number] S.PNEUMONIAE URINE ANTIGENon 02-28-2025 S.PNEUMONIAE URINE ANTIGEN STREP PNEUMONIAE ANTIGEN, URINE Presumptive Negative for Pneumococcal pneumoniae A negative result does not rule out Streptococcus pneumoniae infection since the antigen present in the sample may be below the detection limit of the test. Normal [facility] Comment on above: Performed By: #### 4 7222 #### LAB [address] [address] Moody Martinez M.D. [id number] SEDIMENTATION RATEon 025 SEDIMENTATION RATE, ERYTHROCYTE 16 mm/hr Normal 0-20 [facility] Comment on above: Performed By: #### 4 6477 #### LAB [address] [address] Moody Martinez M.D. [id number] TROPONIN X 2 (NOW AND REPEAT IN 2 HOURS)on 02-28-2025 TROPONIN T DELTA % NG/L 176 % Off scale high <20% of Baseline Troponin [facility] Comment on above: Performed By: #### 4 6608 #### LAB [address] [address] Moody Martinez M.D. [id number] TROPONIN T DELTA CHANGE INTERPRETATION Probable acute injury or myocardial infarction. Normal [facility] Comment on above: Performed By: #### 4 6608 #### LAB [address] [address] Moody Martinez M.D. [id number] TROPONIN T NG/L 207 ng/L Off scale high <=22 [facility] Comment on above: Performed By: #### 4 6608 #### LAB [address] [address] Moody Martinez M.D. [id number] BASELINE TROPONIN T NG/L 75 ng/L Off scale high <=22 [facility] Comment on above: Performed By: #### 4 4014 #### LAB [address] [address] Moody Martinez M.D. [id number] TROPONIN T INTERPRETATION Possible acute cardiac injury. Normal [facility] Comment on above: Performed By: #### 4 4014 #### LAB [address] [address] Moody Martinez M.D. [id number] TSH WITH REFLEX FREE T4on TSH Qn 0.61 m[IU]/L Normal 0.27-4.20 [facility] Comment on above: Performed By: #### 4 6612 #### LAB [address] [address] Moody Martinez M.D. [id number] URINALYSISon 02-28-2025 BACTERIA, URINE None Seen Normal None Seen [facility] Comment on above: Order Comment: Micro scopic examination is performed on all urinalysis samples and only positive findings are reported. The test for blood on the chemical analytic portion of urinalysis may also be positive due to hemoglobinuria and myoglobinuria and if red blood cells are present they are quantified by microscopic examination. Performed By: #### 4 6625 #### LAB [address] [address] Moody Martinez M.D. [id number] BILIRUBIN, URINE Negative Normal Negative [facility] Comment on above: Order Comment: Micro scopic examination is performed on all urinalysis samples and only positive findings are reported. The test for blood on the chemical analytic portion of urinalysis may also be positive due to hemoglobinuria and myoglobinuria and if red blood cells are present they are quantified by microscopic examination. Performed By: #### 4 6607 #### LAB [address] [address] Moody Martinez M.D. [id number] BLOOD, URINE Negative Normal Negative [facility] Comment on above: Order Comment: Micro scopic examination is performed on all urinalysis samples and only positive findings are reported. The test for blood on the chemical analytic portion of urinalysis may also be positive due to hemoglobinuria and myoglobinuria and if red blood cells are present they are quantified by microscopic examination. Performed By: #### 4 6625 #### LAB [address] [address] Moody Martinez M.D. [id number] Clarity (U) Clear Normal Clear [facility] Comment on above: Order Comment: Micro scopic examination is performed on all urinalysis samples and only positive findings are reported. The test for blood on the chemical analytic portion of urinalysis may also be positive due to hemoglobinuria and myoglobinuria and if red blood cells are present they are quantified by microscopic examination. Performed By: #### 4 6625 #### LAB [address] [address] Moody Martinez M.D. [id number] Color (U) Yellow Normal Colorless, Yellow [facility] Comment on above: Order Comment: Micro scopic examination is performed on all urinalysis samples and only positive findings are reported. The test for blood on the chemical analytic portion of urinalysis may also be positive due to hemoglobinuria and myoglobinuria and if red blood cells are present they are quantified by microscopic examination. Performed By: #### 4 6625 #### LAB [address] [address] Moody Martinez M.D. [id number] Glucose Ql (U) >=500 Abnormal Negative [facility] Comment on above: Order Comment: Micro scopic examination is performed on all urinalysis samples and only positive findings are reported. The test for blood on the chemical analytic portion of urinalysis may also be positive due to hemoglobinuria and myoglobinuria and if red blood cells are present they are quantified by microscopic examination. Performed By: #### 4 6625 #### LAB [address] [address] Moody Martinez M.D. [id number] Hyaline casts LM Ql (Urine sed) 3-5 Abnormal 0-2 [facility] Comment on above: Order Comment: Micro scopic examination is performed on all urinalysis samples and only positive findings are reported. The test for blood on the chemical analytic portion of urinalysis may also be positive due to hemoglobinuria and myoglobinuria and if red blood cells are present they are quantified by microscopic examination. Performed By: #### 4 6625 #### LAB [address] [address] Moody Martinez M.D. [id number] Ketones Ql (U) Trace Abnormal Negative [facility] Comment on above: Order Comment: Micro scopic examination is performed on all urinalysis samples and only positive findings are reported. The test for blood on the chemical analytic portion of urinalysis may also be positive due to hemoglobinuria and myoglobinuria and if red blood cells are present they are quantified by microscopic examination. Performed By: #### 4 6625 #### LAB [address] [place] [address] Moody Martinez M.D. [id number] Leukocyte esterase Test strip Ql (U) Negative Normal Negative [facility] Comment on above: Order Comment: Micro scopic examination is performed on all urinalysis samples and only positive findings are reported. The test for blood on the chemical analytic portion of urinalysis may also be positive due to hemoglobinuria and myoglobinuria and if red blood cells are present they are quantified by microscopic examination. Performed By: #### 4 6625 #### LAB [address] [address] Moody Martinez M.D. [id number] MUCUS, URINE Rare Normal None Seen, Rare [facility] Comment on above: Order Comment: Micro scopic examination is performed on all urinalysis samples and only positive findings are reported. The test for blood on the chemical analytic portion of urinalysis may also be positive due to hemoglobinuria and myoglobinuria and if red blood cells are present they are quantified by microscopic examination. Performed By: #### 4 6625 #### LAB [address] [address] Moody Martinez M.D. [id number] NITRITE, URINE Negative Normal Negative [facility] Comment on above: Order Comment: Micro scopic examination is performed on all urinalysis samples and only positive findings are reported. The test for blood on the chemical analytic portion of urinalysis may also be positive due to hemoglobinuria and myoglobinuria and if red blood cells are present they are quantified by microscopic examination. Performed By: #### 4 6625 #### LAB [address] [id number] Moody Martinez M.D. [id number] pH (U) 5.5 [pH] Normal 5.0-7.0 [facility] Comment on above: Order Comment: Micro scopic examination is performed on all urinalysis samples and only positive findings are reported. The test for blood on the chemical analytic portion of urinalysis may also be positive due to hemoglobinuria and myoglobinuria and if red blood cells are present they are quantified by microscopic examination. Performed By: #### 4 6625 #### LAB [address] [place] [address] Moody Martinez M.D. [id number] PROTEIN, URINE Negative Normal Negative [facility] Comment on above: Order Comment: Micro scopic examination is performed on all urinalysis samples and only positive findings are reported. The test for blood on the chemical analytic portion of urinalysis may also be positive due to hemoglobinuria and myoglobinuria and if red blood cells are present they are quantified by microscopic examination. Performed By: #### 4 6625 #### LAB [address] [address] Moody Martinez M.D. [id number] RBC LM.HPF (Urine sed) [#/Area] 1 /[HPF] Normal 0-3 [facility] Comment on above: Order Comment: Micro scopic examination is performed on all urinalysis samples and only positive findings are reported. The test for blood on the chemical analytic portion of urinalysis may also be positive due to hemoglobinuria and myoglobinuria and if red blood cells are present they are quantified by microscopic examination. Performed By: #### 4 6625 #### LAB [address] [address] Moody Martinez M.D. [id number] Specific gravity (U) [Rel density] 1.012 Normal 1.005-1.025 [facility] Comment on above: Order Comment: Micro scopic examination is performed on all urinalysis samples and only positive findings are reported. The test for blood on the chemical analytic portion of urinalysis may also be positive due to hemoglobinuria and myoglobinuria and if red blood cells are present they are quantified by microscopic examination. Performed By: #### 4 6625 #### LAB [address] [address] Moody Martinez M.D. [id number] UROBILINOGEN, URINE <2.0 Normal <2.0 [facility] Comment on above: Order Comment: Micro scopic examination is performed on all urinalysis samples and only positive findings are reported. The test for blood on the chemical analytic portion of urinalysis may also be positive due to hemoglobinuria and myoglobinuria and if red blood cells are present they are quantified by microscopic examination. Performed By: #### 4 6625 #### LAB [address] [address] Moody Martinez M.D. [id number] WBC LM.HPF (Urine sed) [#/Area] 1 /[HPF] Normal 0-5 [facility] Comment on above: Order Comment: Micro scopic examination is performed on all urinalysis samples and only positive findings are reported. The test for blood on the chemical analytic portion of urinalysis may also be positive due to hemoglobinuria and myoglobinuria and if red blood cells are present they are quantified by microscopic examination. Performed By: #### 4 6625 #### LAB [address] [place], [place] [address] Moody Martinez M.D. [id number] URINE AEROBIC CULTUREon 02-01 URINE AEROBIC CULTURE URINE CULTURE < 10,000 CFU/mL of normal urogenital microbiota Normal [facility] Comment on above: Performed By: #### 4 4053 ####[facility] [address] [place], [place] [address] Jose Cisse M.D. [id number] XR CHEST PA/APon 02-28-2025 XR CHEST PA/AP [...] WedFeb 28, 2025 4:00:36 AM EDT Normal [facility] Comment on above: Order Comment: Injur y/Trauma [...] Not established Performed By: #### 7 909, 24761, 6517 #### [facility] [address], [address] [place] [address] Supervisor Wrapping Room: Jadon Velez MD ALBUMIN/CREATININE RATIO, RANDOM URINE [...] diagnostic category. Performed By: #### 7 909, 08441, 6517 #### [facility] of [address], [address] [place] [address] Supervisor Wrapping Room: Jadon Velez MD Creatinine (U) [Mass/Vol] 57 mg/dL Normal 20-320 [facility] Comment on above: Performed By: #### 7 909, 54576, 6517 #### [facility] [address] [address] Supervisor Wrapping Room: Jadon Velez MD [facility] 02-13-2025 Albumin [Mass/Vol] 4.3 g/dL Normal 3.6-5.1 [facility] Comment on above: Performed By: #### 8 66, 7600, 496, 04938, 22384 #### [facility] of [address] [address] Supervisor Wrapping Room: Jadon Velez MD Albumin/Globulin [Mass ratio] 1.7 {ratio} Normal 1.0-2.5 [facility] Comment on above: Performed By: #### 8 66, 7600, 496, 45549, 72663 #### [facility] [address] [address] Supervisor Wrapping Room: Jadon Velez MD ALP [Catalytic activity/Vol] 61 U/L Normal 35-144 [facility] Comment on above: Performed By: #### 8 66, 7600, 496, 19427, 77429 #### [facility] of [address] [address] Supervisor Wrapping Room: Jadon Velez MD ALT [Catalytic activity/Vol] 12 U/L Normal 9-46 [facility] Comment on above: Performed By: #### 8 66, 7600, 496, 51927, 70113 #### [facility] of [address] [place] [address] Supervisor Wrapping Room: Jadon Velez MD AST [Catalytic activity/Vol] 16 U/L Normal 10-35 [facility] Comment on above: Performed By: #### 8 66, 7600, 496, 24259, 00597 #### [facility] of [address], [address] [place] [address] Supervisor Wrapping Room: Jadon Velez MD Bilirubin [Mass/Vol] 0.5 mg/dL Normal 0.2-1.2 [facility] Comment on above: Performed By: #### 8 66, 7600, 496, 87382, 91867 #### [facility] of [address], [address] [place] [address] Supervisor Wrapping Room: Jadon Velez MD Calcium [Mass/Vol] 9.3 mg/dL Normal 8.6-10.3 [facility] Comment on above: Performed By: #### 8 66, 7600, 496, 40010, 49490 #### [facility] of [address], [address] [place] [address] Supervisor Wrapping Room: Jadon Velez MD Chloride [Moles/Vol] 102 mmol/L Normal 98-110 [facility] Comment on above: Performed By: #### 8 66, 7600, 496, 82802, 49232 #### [facility] of [address] [place] [address] Supervisor Wrapping Room: Jadon Velez MD CO2 [Moles/Vol] 28 mmol/L Normal 20-32 [facility] Comment on above: Performed By: #### 8 66, 7600, 496, 62805, 97606 #### [facility] of [address] [place] [address] Supervisor Wrapping Room: Jadon Velez MD Creatinine [Mass/Vol] 1.76 mg/dL High 0.70-1.[address] [facility] Comment on above: Performed By: #### 8 66, 7600, 496, 48140, 54393 #### [facility] of [address] [place] [address] Supervisor Wrapping Room: Jadon Velez MD GFR/1.73 sq M.predicted among non-blacks MDRD (S/P/Bld) [Vol rate/Area] 38 mL/min/{1.73_m2} Low > OR = 60 [facility] Comment on above: Performed By: #### 8 66, 7600, 496, 20106, 64322 #### [facility] [place] [address] Supervisor Wrapping Room: Jadon Velez MD Globulin (S) [Mass/Vol] 2.6 g/dL Normal 1.9-3.7 [facility] Comment on above: Performed By: #### 8 66, 7600, 496, 73175, 39965 #### [facility] [place] [address] Supervisor Wrapping Room: Jadon Velez MD Glucose [Mass/Vol] 242 mg/dL High 65-99 [facility] Comment on above: Result Comment: Fasting reference interval For someone without known diabetes, a glucose value >125 mg/dL indicates that they may have diabetes and this should be confirmed with a follow-up test. Performed By: #### 8 66, 7600, 496, 15507, 73867 #### [facility] [place] [address] Supervisor Wrapping Room: Jadon Velez MD Potassium [Moles/Vol] 4.6 mmol/L Normal 3.5-5.[address] [facility] Comment on above: Performed By: #### 8 66, 7600, 496, 53228, 81295 #### [facility] [place] [address] Supervisor Wrapping Room: Jadon Velez MD Protein [Mass/Vol] 6.9 g/dL Normal 6.1-8.1 [facility] Comment on above: Performed By: #### 8 66, 7600, 496, 14996, 18750 #### [facility] [place] [address] Supervisor Wrapping Room: Jadon Velez MD Sodium [Moles/Vol] 140 mmol/L Normal 135-146 [facility] Comment on above: Performed By: #### 8 66, 7600, 496, 46771, 84011 #### [facility] of [place] [address] Supervisor Wrapping Room: Jadon Velez MD Urea nitrogen [Mass/Vol] 38 mg/dL High 7-25 [facility] Comment on above: Performed By: #### 8 66, 7600, 496, 23653, 61087 #### [facility] of [address], [address] [place] [address] Supervisor Wrapping Room: Jadon Velez MD Urea nitrogen/Creatinine [Mass ratio] 22 mg/mg Normal 6-22 [facility] Comment on above: Performed By: #### 8 66, 7600, 496, 73496, 80484 #### [facility] of [place] [address] Supervisor Wrapping Room: Jadon Velez MD COMPREHENSIVE METABOLIC PANE L W/ANION GAPon 02-13-2025 Albumin [Mass/Vol] 4.3 g/dL Normal 3.6-5.1 [facility] Comment on above: Performed By: #### 7 909, 83901, 4217 #### [facility] of [place] [address] Supervisor Wrapping Room: Jadon Velez MD ALP [Catalytic activity/Vol] 60 U/L Normal 35-144 [facility] Comment on above: Performed By: #### 7 909, 23872, 6517 #### [facility] of [place] [address] Supervisor Wrapping Room: Jadon Velez MD ALT [Catalytic activity/Vol] 11 U/L Normal 9-46 [facility] Comment on above: Performed By: #### 7 909, 22597, 9581 #### [facility] of [place] [address] Supervisor Wrapping Room: Jadon Velez MD AST [Catalytic activity/Vol] 15 U/L Normal 10-35 [facility] Comment on above: Performed By: #### 7 909, 03045, 6517 #### [facility] of [place] [address] Supervisor Wrapping Room: Jadon Velez MD Bilirubin [Mass/Vol] 0.5 mg/dL Normal 0.2-1.2 [facility] Comment on above: Performed By: #### 7 909, 79441, 6517 #### [facility] of [place] [address] Supervisor Wrapping Room: Jadon Velez MD Calcium [Mass/Vol] 9.3 mg/dL Normal 8.6-10.3 [facility] Comment on above: Performed By: #### 7 90, 33946, 6517 #### [facility] of [place] [address] Supervisor Wrapping Room: Jadon Velez MD Chloride [Moles/Vol] 102 mmol/L Normal 98-110 [facility] Comment on above: Performed By: #### 7 90, 96552, 6517 #### [facility] [place] [address] Supervisor Wrapping Room: Jadon Velez MD CO2 [Moles/Vol] 28 mmol/L Normal 20-32 [facility] Comment on above: Performed By: #### 7 90, 08133, 6517 #### [facility] of [place] [address] Supervisor Wrapping Room: Jadon Velez MD Creatinine [Mass/Vol] 1.80 mg/dL High 0.70-1.[address] [facility] Comment on above: Performed By: #### 7 90, 40745, 6517 #### [facility] of [place] [address] Supervisor Wrapping Room: Jadon Velez MD ELECTROLYTE BALANCE 10 mmol/L (calc) Normal 7-17 [facility] Comment on above: Performed By: #### 7 90, 98062, 6517 #### [facility] [place] [address] Supervisor Wrapping Room: Jadon Velez MD GFR/1.73 sq M.predicted among non-blacks MDRD (S/P/Bld) [Vol rate/Area] 37 mL/min/{1.73_m2} Low > OR = 60 [facility] Comment on above: Performed By: #### 7 90, 73015, 6517 #### [facility] [place] [address] Supervisor Wrapping Room: Jadon Velez MD Glucose [Mass/Vol] 241 mg/dL High 65-99 [facility] Comment on above: Result Comment: Fasting reference interval For someone without known diabetes, a glucose value >125 mg/dL indicates that they may have diabetes and this should be confirmed with a follow-up test. Performed By: #### 7 90, 37039, 6517 #### [facility] [place] [address] Supervisor Wrapping Room: Jadon Velez MD Potassium [Moles/Vol] 4.7 mmol/L Normal 3.5-5.[address] [facility] Comment on above: Performed By: #### 7 90, 98400, 6517 #### [facility] [place] [address] Supervisor Wrapping Room: Jadon Velez MD Protein [Mass/Vol] 6.7 g/dL Normal 6.1-8.1 [facility] Comment on above: Performed By: #### 7 90, 35464, 6517 #### [facility] [place] [address] Supervisor Wrapping Room: Jadon Velez MD Sodium [Moles/Vol] 140 mmol/L Normal 135-146 [facility] Comment on above: Performed By: #### 7 90, 19307, 6517 #### [facility] [place] [address] Supervisor Wrapping Room: Jadon Velez MD Urea nitrogen [Mass/Vol] 38 mg/dL High 7-25 [facility] Comment on above: Performed By: #### 7 909, 64142, 6517 #### [facility] [address], [address] [place] [address] Supervisor Wrapping Room: Jadon Velez MD Comprehensive metabolic 2000 panelon 02-13-2025 Albumin [Mass/Vol] 4.3 g/dL 3.6 - 5.1 g/dL [facility] Albumin/Globulin [Mass ratio] 1.7 {ratio} [facility] ALP [Catalytic activity/Vol] 61 U/L 35 - 144 U/L [facility] ALT [Catalytic activity/Vol] 12 U/L 9 - 46 U/L [facility] AST [Catalytic activity/Vol] 16 U/L 10 - 35 U/L [facility] Bilirubin [Mass/Vol] 0.5 mg/dL 0.2 - 1 .2 mg/dL [facility] Calcium [Mass/Vol] 9.3 mg/dL 8.6 - 10. 3 mg/dL [facility] Chloride [Moles/Vol] 102 mmol/L 98 - 11 0 mmol/L [facility] CO2 [Moles/Vol] 28 mmol/L 20 - 32 mmol/L [facility]alt Creatinine [Mass/Vol] 1.76 mg/dL High 0.70 - 1.22 mg/dL [facility] GFR/1.73 sq M.predicted among non-blacks MDRD (S/P/Bld) [Vol rate/Area] 38 mL/min/{1.73_m2} Low > OR = 60 mL/min/1.73m2 [facility] Globulin (S) [Mass/Vol] 2.6 g/dL [facility] Glucose [Mass/Vol] 242 mg/dL High 65 - 99 mg/dL [facility] Comment on above: Fasting reference interval For someone without known diabetes, a glucose value >125 mg/dL indicates that they may have diabetes and this should be confirmed with a follow-up test. Interpretation and review of laboratory results Abnormal [facility] Potassium [Moles/Vol] 4.6 mmol/L 3.5 - 5.3 mmol/L [facility] Protein [Mass/Vol] 6.9 g/dL 6.1 - 8.1 g/dL [facility] Sodium [Moles/Vol] 140 mmol/L 135 - 146 mmol/L [facility] Urea nitrogen [Mass/Vol] 38 mg/dL High 7 - 25 mg/dL [facility] Urea nitrogen/Creatinine [Mass ratio] 22 mg/mg [facility] HEMOGLOBIN A1con 02-13-2025 HbA1c (Bld) [Mass fraction] [...] for children. Performed By: #### 7 909, 43340, 6517 #### [facility] [address], [address] [place] [phone] Supervisor Wrapping Room: Jadon Velez MD HbA1c (Bld) [Mass fraction]o n 02-13-2025 Interpretation and review of laboratory results Abnormal [facility] Hemoglobin A1con 02-13-2025 HbA1c (Bld) [Mass fraction] 7.4 % High NINF - 5.7 % [facility] Comment on above: For someone without known [...] on above: Performed By: #### 8 66, 3640, 496, 33247, 40536 #### [facility] [address], [address] [place] [phone] Supervisor Wrapping Room: Jadon Velez MD Cholesterol in HDL [Mass/Vol] 57 mg/dL Normal > OR = 40 [facility] Comment on above: Performed By: #### 8 66, 7600, 496, 81050, 00677 #### [facility] [place] [address] Supervisor Wrapping Room: Jadon Velez MD Cholesterol in LDL [Mass/Vol] [...] Ramon SS et al. ANA LAURA. 2013;310(19): 3415-5396 (http://education.[email or web address] [email or web address]/faq/JES310) Performed By: #### 8 66, 7600, 496, 97024, 57255 #### [facility] [place] [address] Supervisor Wrapping Room: Jadon Velez MD Cholesterol.total/Chol esterol in HDL [Mass ratio] 2.6 {ratio} Normal <5.0 [facility] Comment on above: Performed By: #### 8 66, 7600, 496, 62256, 06941 #### [facility] [place] [address] Supervisor Wrapping Room: Jadon Velez MD NON HDL CHOLESTEROL 91 mg/dL (calc) Normal <130 [facility] Comment on above: Result Comment: For patients with diabetes plus 1 major ASCVD risk factor, treating to a non-HDL-C goal of <100 mg/dL (LDL-C of <70 mg/dL) is considered a therapeutic option. Performed By: #### 8 66, 7600, 496, 62985, 14269 #### [facility] [place] [address] Supervisor Wrapping Room: Jadon Velez MD Triglyceride [Mass/Vol] 85 mg/dL Normal <150 [facility] Comment on above: Performed By: #### 8 66, 7600, 496, 28584, 90556 #### [facility] [address], [address] [place] [phone] Supervisor Wrapping Room: Jadon Velez MD Lipid 1996 panelon Cholesterol [Mass/Vol] 148 mg/dL [facility] - 200 mg/dL [facility] Cholesterol in HDL [Mass/Vol] 57 mg/dL > OR = 40 [facility] Cholesterol in LDL [Mass/Vol] 74 mg/dL mg/dL (calc) [facility] Comment on above: Reference range: <10 0 [...] Ramon SORIA et al. ANA LAURA. 2013;310(19): 3795-9870 (http://education.Diaphonics.Med Access/faq/ABM169) Cholesterol non HDL [Mass/Vol] 91 mg/dL [facility] Comment on above: For patients with di abetes plus 1 major ASCVD risk factor, treating to a non-HDL-C goal of <100 mg/dL (LDL-C of <70 mg/dL) is considered a therapeutic option. Cholesterol.total/Chol esterol in HDL [Mass ratio] 2.6 {ratio} [facility] Triglyceride [Mass/Vol] 85 mg/dL [facility] - 150 mg/dL [facility] NOTEon 02-13-2025 NOTE Normal [facility] Comment on above: Result Comment: This urine was analyzed for the presence of WBC, RBC, bacteria, casts, and other formed elements. Only those elements seen were reported. Performed By: #### 7 729, 42043, 3676 #### [facility] [address], [address] [place] [id number] Supervisor Wrapping Room: Jadon Velez MD No Panel Informationon 02-13 [facility] T4, FREEon 02-13-2025 Free T4 [Mass/Vol] 1.4 ng/dL Normal 0.8-1.8 [facility] Comment on above: Performed By: #### 7 909, 13200, 6517 #### [facility] of [place] [address] Supervisor Wrapping Room: Jadon Velez MD TSH W/REFLEX TO FT4on 2024 TSH W/REFLEX TO FT4 0.36 mIU/L Low 0.40-4.50 [facility] Comment on above: Performed By: #### 8 66, 7600, 496, 01669, 88450 #### [facility] [place] [address] Supervisor Wrapping Room: Jadon Velez MD URINALYSIS REFLEXon 02-14-20 25 Appearance (U) CLEAR Normal CLEAR [facility] Comment on above: Performed By: #### 7 909, 58283, 6517 #### [facility] [place] [address] Supervisor Wrapping Room: Jadon Velez MD BACTERIA NONE SEEN Normal NONE SEEN [facility] Comment on above: Performed By: #### 7 909, 63689, 6517 #### [facility] [place] [address] Supervisor Wrapping Room: Jadon Velez MD Bilirubin Ql (U) Negative Normal NEGATIVE [facility] Comment on above: Performed By: #### 7 909, 09976, 6517 #### [facility] [place] [address] Supervisor Wrapping Room: Jadon Velez MD Color (U) YELLOW Normal YELLOW [facility] Comment on above: Performed By: #### 7 909, 92144, 6517 #### [facility] [place] [address] Supervisor Wrapping Room: Jadon Velez MD Glucose Ql (U) Negative Normal NEGATIVE [facility] Comment on above: Performed By: #### 7 909, 14011, 6517 #### [facility] [place] [address] Supervisor Wrapping Room: Jadon Velez MD HYALINE CAST NONE SEEN Normal NONE SEEN [facility] Comment on above: Performed By: #### 7 909, 22777, 6517 #### [facility] of [address], [address] [place] [address] Supervisor Wrapping Room: Jadon Velez MD Ketones Ql (U) Negative Normal NEGATIVE [facility] Comment on above: Performed By: #### 7 909, 58355, 6517 #### [facility] of [address], [address] [place] [address] Supervisor Wrapping Room: Jadon Velez MD Leukocyte esterase Test strip Ql (U) TRACE Abnormal NEGATIVE [facility] Comment on above: Performed By: #### 7 909, 24498, 6517 #### [facility] of [address], [address] [place] [address] Supervisor Wrapping Room: Jadon Velez MD Nitrite Ql (U) Negative Normal NEGATIVE [facility] Comment on above: Performed By: #### 7 909, 14091, 6517 #### [facility] of [address], [address] [place] [address] Supervisor Wrapping Room: Jadon Velez MD OCCULT BLOOD Negative Normal NEGATIVE [facility] Comment on above: Performed By: #### 7 909, 91698, 6517 #### [facility] of [address], [address] [place] [address] Supervisor Wrapping Room: Jadon Velez MD pH (U) 6.0 [pH] Normal 5.0-8.0 [facility] Comment on above: Performed By: #### 7 909, 14447, 6517 #### [facility] of [place] [address] Supervisor Wrapping Room: Jadon Velez MD Protein Ql (U) 1+ Abnormal NEGATIVE [facility] Comment on above: Performed By: #### 7 909, 65155, 6517 #### [facility] of [address], [address] [place] [address] Supervisor Wrapping Room: Jadon Velez MD RBC NONE SEEN Normal < OR = 2 [facility] Comment on above: Performed By: #### 7 909, 84501, 6517 #### [facility] of [address], [address] [place] [address] Supervisor Wrapping Room: Jadon Velez MD Specific gravity (U) [Rel density] 1.011 Normal 1.001-1.035 [facility] Comment on above: Performed By: #### 7 909, 43891, 6517 #### [facility] of [address], [address] [place] [address] Supervisor Wrapping Room: Jadon Velez MD SQUAMOUS EPITHELIAL CELLS NONE SEEN Normal < OR = 5 [facility] Comment on above: Performed By: #### 7 909, 27587, 6517 #### [facility] of [address], [address] [place] [address] Supervisor Wrapping Room: Jadon Velez MD WBC 0-5 Normal < OR = 5 [facility] Comment on above: Performed By: #### 7 909, 77456, 6517 #### [facility] of [address], [address] [place] [address] Supervisor Wrapping Room: Jadon Velez MD Anion gap in Serum or Plasma Ordered By: Kerwin Tamayo on 02-06-2025 Anion gap [Moles/Vol] 12 mmol/L 5-15 [facility] BUN/creatinine ratioOrdered By: Kerwin Tamayo on 02-06-2025 Urea nitrogen/Creatinine [Mass ratio] 23.1 mg/mg High 10- [facility] Basic Metabolic Profile (BMP )on 02-06-2025 BUN/CRE 23.1 RATIO High - [facility] Comment on above: Performed By: #### L 100.0500, L500.2500 #### [facility] Laboratory [facility] [address] [place], [place], [address] Calcium [Mass/Vol] 9.1 mg/dL Normal 7.6-11.[address] [facility] Comment on above: Performed By: #### L 100.0500, L500.2500 #### [facility] Laboratory [address] [place], [address] Chloride [Moles/Vol] 103 mmol/L Normal 98-108 [facility] Comment on above: Performed By: #### L 100.0500, L500.2500 #### [facility] Laboratory [address] [place], [address] CO2 [Moles/Vol] 23.7 mmol/L Normal 21.0-32.0 [facility] Comment on above: Performed By: #### L 100.0500, L500.2500 #### [facility] [address] [place], [address] Creatinine [Mass/Vol] 1.88 mg/dL High 0.70-1.20 [facility] Comment on above: Performed By: #### L 100.0500, L500.2500 #### [facility] [address] [place], [address] GAP 12 Normal 5-15 [facility] Comment on above: Performed By: #### L 100.0500, L500.2500 #### [facility] [address] [place], [address] GFR/1.73 sq M.predicted among non-blacks MDRD (S/P/Bld) [Vol rate/Area] 35 mL/min/{1.73_m2} Low >60 [facility] Comment on above: Result Comment: mL/m in/1.73m2 CKD-EPI Creatinine Equation (2020) Performed By: #### L 100.0500, L500.2500 #### [facility] [address] [place], [address] Glucose [Mass/Vol] 287 mg/dL High 70-[address] [facility] Comment on above: Performed By: #### L 100.0500, L500.2500 #### [facility] [address] [place], [address] Potassium [Moles/Vol] 4.4 mmol/L Normal 3.3-5.1 [facility] Comment on above: Performed By: #### L 100.0500, L500.2500 #### [facility] [address] [place], [address] Sodium [Moles/Vol] 139 mmol/L Normal 133-[address] [facility] Comment on above: Performed By: #### L 100.0500, L500.2500 #### [facility] [address] [place], [address] Urea nitrogen [Mass/Vol] 44 mg/dL High 4-19 [facility] Comment on above: Performed By: #### L 100.0500, L500.2500 #### [facility] [address] [place], [address] CBC-Complete Blood Cnt No Di ffon 02-06-2025 Erythrocyte distribution width (RBC) [Ratio] 13.0 % Normal 11.6-14.6 [facility] Comment on above: Performed By: #### L 100.0500, L500.2500 #### [facility] [address] [place], [address] Hematocrit (Bld) [Volume fraction] 33.8 % Low 40-54 [facility] Comment on above: Performed By: #### L 100.0500, L500.2500 #### [facility] [address] [place], [address] Hemoglobin (Bld) [Mass/Vol] 11.0 g/dL Low 13.0-16.5 [facility] Comment on above: Performed By: #### L 100.0500, L500.2500 #### [facility] [address] [place], [address] MCH (RBC) [Entitic mass] 31.0 pg Normal 27.0-32.0 [facility] Comment on above: Performed By: #### L 100.0500, L500.2500 #### [facility] [address] [place], [address] MCHC (RBC) [Mass/Vol] 32.5 g/dL Normal 32-36 [facility] Comment on above: Performed By: #### L 100.0500, L500.2500 #### [facility] [address] [place], [address] MCV (RBC) [Entitic vol] 95.2 fL High 80-94 [facility] Comment on above: Performed By: #### L 100.0500, L500.2500 #### [facility] Laboratory [address] [place], [address] Platelet mean volume (Bld) [Entitic vol] 11.2 fL Normal 6.2-12.0 [facility] Comment on above: Performed By: #### L 100.0500, L500.2500 #### [facility] Laboratory [address] [place], [address] Platelets (Bld) [#/Vol] 239 10*3/uL Normal 150-450 [facility] Comment on above: Performed By: #### L 100.0500, L500.2500 #### [facility] Laboratory [address] [place], [address] RBC (Bld) [#/Vol] 3.55 10*6/uL Low 4.6-6.2 [facility] Comment on above: Performed By: #### L 100.0500, L500.2500 #### [facility] [address] [place], [address] RDW SD 45.3 fl High 35.1-43.9 [facility] Comment on above: Performed By: #### L 100.0500, L500.2500 #### [facility] [address] [place], [place], [address] WBC (Bld) [#/Vol] 8.9 10*3/uL Normal 4.4-11.[address] [facility] Comment on above: Performed By: #### L 100.0500, L500.2500 #### [facility] [address] [place], [address] Carbon dioxide, total [Moles /volume] in Central venous bloodOrdered By: Kerwin Tamayo on 02-06-2025 CO2 [Moles/Vol] 23.7 mmol/L 21.0-32.0 [facility] Chloride assayOrdered By: Daniela Tamayo on 02-06-2025 Chloride [Moles/Vol] 103 mmol/L 98-108 [facility] Erythrocyte distribution wid th (RBC) [Ratio]Ordered By: Kerwin Tamyao on 02-06-2025 Erythrocyte distribution width (RBC) [Entitic vol] 45.3 fL High 35.1-43.9 [facility] Erythrocyte distribution wid th ratioOrdered By: Kerwin Tamayo on 02-06-2025 Erythrocyte distribution width (RBC) [Ratio] 13.0 % 11.6-14.6 [facility] GFR/1.73 sq M.predicted park g non-blacks MDRD (S/P/Bld) [Vol rate/Area]Ordered By: Kerwin Tamayo on 02-06-2025 Estimated GFR (MDRD) Non-Af Amer 35 Low >60 [facility] Comment on above: mL/min/1.73m2 CKD-EP I Creatinine Equation (2020) Hematocrit Auto (Bld) [Volum e fraction]Ordered By: Kerwin Tamayo on 02-06-2025 Hematocrit (Bld) [Volume fraction] 33.8 % Low 40-54 [facility] Hemoglobin measurementOrdere d By: Kerwin Tamayo on 02-06-2025 Hemoglobin (Bld) [Mass/Vol] 11.0 g/dL Low 13.0-16.5 [facility] MCV (mean corpuscular volume ) determinationOrdered By: Kerwin Tamayo on 02-06-2025 MCV (RBC) [Entitic vol] 95.2 fL High 80-94 [facility] Mean corpuscular hemoglobin (MCH) determinationOrdered By: Kerwin Tamayo on 02-06-2025 MCH (RBC) [Entitic mass] 31.0 pg 27.0-32.0 [facility] Mean corpuscular hemoglobin concentration (MCHC) determinationOrdered By: Kerwin Tamayo on 02-06-2025 MCHC (RBC) [Mass/Vol] 32.5 g/dL 32-36 [facility] Mean platelet volume determi nationOrdered By: Kerwin Tamayo on 02-06-2025 Platelet mean volume (Bld) [Entitic vol] 11.2 fL 6.2-12.0 [facility] Platelet countOrdered By: Daniela Tamayo on 02-06-2025 Platelets (Bld) [#/Vol] 239 10*3/uL 150-450 [facility] Potassium (Unsp spec) [Mass/ Vol]Ordered By: Kerwin Tamayo on 02-06-2025 Potassium [Moles/Vol] 4.4 mmol/L 3.3-5.1 [facility] RBC Auto (Bld) [#/Vol]Ordere d By: Kerwin Tamayo on 02-06-2025 RBC (Bld) [#/Vol] 3.55 10*6/uL Low 4.6-6.2 [facility] Serum creatinine measurement (mass/volume)Ordered By: Kerwin Tamayo on 02-06-2025 Creatinine [Mass/Vol] 1.88 mg/dL High 0.70-1.20 [facility] Serum glucose measurement (m ass/volume)Ordered By: Kerwin Tamayo on 02-06-2025 Glucose [Mass/Vol] 287 mg/dL High 70-[address] [facility] Serum or plasma calcium nikkie urement (mass/volume)Ordered By: Kerwin Tamayo on 02-06-2025 Calcium [Mass/Vol] 9.1 mg/dL 7.6-11.[address] [facility] Serum or plasma urea nitroge n measurement (mass/volume)Ordered By: Kerwin Tamayo on 02-06-2025 Urea nitrogen [Mass/Vol] 44 mg/dL High 4-19 [facility] Sodium levelOrdered By: Aaron Tamayo on 02-06-2025 Sodium [Moles/Vol] 139 mmol/L 133-[address] [facility] White blood cell (WBC) count Ordered By: Kerwin Tamayo on 02-06-2025 WBC (Bld) [#/Vol] 8.9 10*3/uL 4.4-11.[address] [facility] CBC W Auto Differential pane l (Bld)on 11-06-2024 Basophils (Bld) [#/Vol] 0.08 x10*3/uL Normal 0.00-0.10 [facility] Comment on above: Performed By: #### 5 7021-8 #### MAGGI PARNELL ([id number]) [facility] ([facility]) [address] [place] [address] Basophils/100 WBC (Bld) 0.8 % Normal 0.0-2.0 [facility] Comment on above: Performed By: #### 5 7021-8 #### MAGGI PARNELL ([id number]) [facility] ([facility]) [address] [place] [address] Eosinophils (Bld) [#/Vol] 0.42 x10*3/uL High 0.00-0.40 [facility] Comment on above: Performed By: #### 5 7021-8 #### MAGGI PARNELL ([id number]) [facility] ([facility]) [address] [place] [address] Eosinophils/100 WBC (Bld) 4.4 % Normal 0.0-6.0 [facility] Comment on above: Performed By: #### 5 7021-8 #### MAGGI PARNELL ([id number]) [facility] ([facility]) [address] [place] [address] Erythrocyte distribution width (RBC) [Ratio] 14.5 % Normal 11.5-14.5 [facility] Comment on above: Performed By: #### 5 7021-8 #### MAGGI PARNELL ([id number]) [facility] ([facility]) [address] [place] [address] Hematocrit (Bld) [Volume fraction] 34.5 % Low 41.0-52.0 [facility] Comment on above: Performed By: #### 5 7021-8 #### MAGGI PARNELL ([id number]) [facility] ([facility]) [address] [place] [address] Hemoglobin (Bld) [Mass/Vol] 10.6 g/dL Low 13.5-17.5 [facility] Comment on above: Performed By: #### 5 7021-8 #### MAGGI PARNELL ([id number]) [facility] ([facility]) [address] [place] [address] Immature granulocytes (Bld) [#/Vol] 0.03 x10*3/uL Normal 0.00-0.50 [facility] Comment on above: Performed By: #### 5 7021-8 #### MAGGI PARNELL ([id number]) [facility] ([facility]) [address] [place] [address]18 Immature granulocytes/100 WBC (Bld) 0.3 % Normal 0.0-0.9 [facility] Comment on above: Result Comment: Arielle ture Granulocyte Count (IG) includes promyelocytes, myelocytes and metamyelocytes but does not include bands. Percent differential counts (%) should be interpreted in the context of the absolute cell counts (cells/UL). Performed By: #### 5 7021-8 #### MAGGI PARNELL ([id number]) [facility] ([facility]) [address] [place] [address]05 Lymphocytes (Bld) [#/Vol] 2.35 x10*3/uL Normal 0.80-3.00 [facility] Comment on above: Performed By: #### 5 7021-8 #### MAGGI PARNELL ([id number]) [facility] ([facility]) [address] [place] [address]105 Lymphocytes/100 WBC (Bld) 24.5 % Normal 13.0-44.0 [facility] Comment on above: Performed By: #### 5 7021-8 #### MAGGI PARNELL ([id number]) [facility] ([facility]) [address] [place] [address]7962 MCH (RBC) [Entitic mass] 30.3 pg Normal 26.0-34.0 [facility] Comment on above: Performed By: #### 5 7021-8 #### MAGGI PARNELL ([id number]) [facility] ([facility]) [address] [place] [address]80 MCHC (RBC) [Mass/Vol] 30.7 g/dL Low 32.0-36.0 [facility] Comment on above: Performed By: #### 5 7021-8 #### MAGGI PARNELL ([id number]) [facility] ([facility]) [address] [place] [address]407 MCV (RBC) [Entitic vol] 99 fL Normal 80-100 [facility] Comment on above: Performed By: #### 5 7021-8 #### MAGGI PARNELL ([id number]) [facility] ([facility]) [address] [place] [address] 11372 Monocytes (Bld) [#/Vol] 0.82 x10*3/uL High 0.05-0.80 [facility] Comment on above: Performed By: #### 5 7021-8 #### MAGGI PARNELL ([id number]) [facility] ([facility]) [address] [place] [address] 33679 Monocytes/100 WBC (Bld) 8.6 % Normal 2.0-10.0 [facility] Comment on above: Performed By: #### 5 7021-8 #### MAGGI PARNELL ([id number]) [facility] ([facility]) [address] [place] [address] 15818 Neutrophils (Bld) [#/Vol] 5.89 x10*3/uL High 1.60-5.50 [facility] Comment on above: Result Comment: Perc ent differential counts (%) should be interpreted in the context of the absolute cell counts (cells/uL). Performed By: #### 5 7021-8 #### MAGGI PARNELL ([id number]) [facility] ([facility]) [address] [place] [address] 33152 Neutrophils/100 WBC (Bld) 61.4 % Normal 40.0-80.0 [facility] Comment on above: Performed By: #### 5 7021-8 #### MAGGI PARNELL ([id number]) [facility] ([facility]) [address] [place] [address] 27701 Nucleated RBC/100 WBC (Bld) [Ratio] 0.0 /100 WBCs Normal 0.0-0.0 [facility] Comment on above: Performed By: #### 5 7021-8 #### MAGGI PARNELL ([id number]) [facility] ([facility]) [address] [place] [address] 07552 Platelets (Bld) [#/Vol] 229 x10*3/uL Normal 150-450 [facility] Comment on above: Performed By: #### 5 7021-8 #### MAGGI PARNELL ([id number]) [facility] ([facility]) [address] [place] [address] 65622 RBC (Bld) [#/Vol] 3.50 x10*6/uL Low 4.50-5.90 [facility] Comment on above: Performed By: #### 5 7021-8 #### MAGGI PARNELL ([id number]) [facility] ([facility]) [address] [place] [address] 25220 WBC (Bld) [#/Vol] 9.6 x10*3/uL Normal 4.4-11.3 [facility] Comment on above: Performed By: #### 5 7021-8 #### MAGGI PARNELL ([id number]) [facility] ([facility]) [address] [place] [address] 25865 Comprehensive metabolic 2000 panelon 11-06-2024 Albumin BCP dye [Mass/Vol] 3.7 g/dL Normal 3.4-5.0 [facility] Comment on above: Performed By: #### 1 4959-1 #### ALENA Paredes ([id number]) [facility] ([facility]) [address] [place] [address] ALP [Catalytic activity/Vol] 68 U/L Normal 33-136 [facility] Comment on above: Performed By: #### 1 4959-1 #### ALENA Paredes ([id number]) [facility] ([facility]) [address] [place] [address] ALT With P-5'-P [Catalytic activity/Vol] 19 U/L Normal 10-52 [facility] Comment on above: Result Comment: Bc ents treated with Sulfasalazine may generate falsely decreased results for ALT. Performed By: #### 1 4959-1 #### ALENA Paredes ([id number]) [facility] ([facility]) [address] [place] [address] Anion gap [Moles/Vol] 12 mmol/L Normal 10-20 [facility] Comment on above: Performed By: #### 1 4959-1 #### ALENA Paredes ([id number]) [facility] ([facility]) [address] [place] [address] AST With P-5'-P [Catalytic activity/Vol] 19 U/L Normal 9-39 [facility] Comment on above: Performed By: #### 1 4959-1 #### ALENA Paredes ([id number]) [facility] ([facility]) [address] [place] [address] Bilirubin [Mass/Vol] 0.3 mg/dL Normal 0.0-1.2 [facility] Comment on above: Performed By: #### 1 4959-1 #### ALENA CORREA L ([id number]) [facility] ([facility]) [address] [place] [address] Calcium [Mass/Vol] 8.9 mg/dL Normal 8.6-10.3 [facility] Comment on above: Performed By: #### 1 4959-1 #### ALENA Paredes ([id number]) [facility] ([facility]) [id number] [place] [address] Chloride [Moles/Vol] 108 mmol/L High 98-107 [facility] Comment on above: Performed By: #### 1 4959-1 #### ALENA Paredes ([id number]) [facility] ([facility]) [address] [place] [address] CO2 [Moles/Vol] 23 mmol/L Normal 21-32 [facility] Comment on above: Performed By: #### 1 4959-1 #### ALENA Paredes ([id number]) [facility] ([facility]) [id number] [place] [place] [address]61 Creatinine [Mass/Vol] 2.37 mg/dL High 0.50-1.30 [facility] Comment on above: Performed By: #### 1 4959-1 #### ALENA Paredes ([id number]) [facility] ([facility]) [id number] [place] [address]277 Glomerular filtration rate/1.73 sq M.predicted 27 mL/min/1.73m*2 Low >60 [facility] Comment on above: Result Comment: Calc ulations of estimated GFR are performed using the 2020 CKD-EPI Study Refit equation without the race variable for the IDMS-Traceable creatinine methods. https://jasn.asnjournals.org/content//ASN.79999 23847 Performed By: #### 1 4959-1 #### ALENA Paredes ([id number]) [facility] ([facility]) [address] [place] [address]482 Glucose [Mass/Vol] 95 mg/dL Normal 74-99 [facility] [facility] Comment on above: Performed By: #### 1 4959-1 #### ALENA Paredes ([id number]) [facility] ([facility]) [id number] [place] [address] 14662 Potassium [Moles/Vol] 4.9 mmol/L Normal 3.5-5.3 [facility] Comment on above: Performed By: #### 1 4959-1 #### ALENA Paredes ([id number]) [facility] ([facility]) [id number] [place] [address] 57935 Protein [Mass/Vol] 6.4 g/dL Normal 6.4-8.2 [facility] Comment on above: Performed By: #### 1 4959-1 #### ALENA Paredes ([id number]) [facility] ([facility]) [id number] [address] 39819 Sodium [Moles/Vol] 138 mmol/L Normal 136-145 [facility] Comment on above: Performed By: #### 1 4959-1 #### ALENA Paredes ([id number]) [facility] ([facility]) [address] [place] [address] 17131 Urea nitrogen [Mass/Vol] 48 mg/dL High 6-23 [facility] Comment on above: Performed By: #### 1 4959-1 #### ALENA Paredes ([id number]) [facility] ([facility]) [address] [place] [address] 29403 HbA1c (Bld) [Mass fraction]o n 11-06-2024 Average glucose Estimated from glycated hemoglobin (Bld) [Mass/Vol] 220 mg/dL Normal Not Established [facility] Comment on above: Order Comment: Diagn osis of Sjsxeaza-DfjvcjAlq-Pugieuyb: < or = 5.6%Increased risk for developing diabetes: 5.7-6.4%Diagnostic of diabetes: > or = 6.5% Performed By: #### 1 4959-1 #### ALENA Paredes ([id number]) [facility] ([facility]) [address] [place] [address] 03180 Hemoglobin A1c/Hemoglobin.to alcira 11-06-2024 HbA1c (Bld) [Mass fraction] 9.3 % High See comment [facility] Comment on above: Order Comment: Diagn osis of Somaosll-EiaojpVpz-Vwdbmyue: < or = 5.6%Increased risk for developing diabetes: 5.7-6.4%Diagnostic of diabetes: > or = 6.5% Performed By: #### 1 4959-1 #### ALENA Paredes ([id number]) [facility] ([facility]) [id number] [place] [address] 58385 Thyrotropinon 11-06-2024 TSH Qn 2.65 m[IU]/L Normal 0.44-3.98 [facility] Comment on above: Order Comment: TSH t esting is performed using different testing methodology at [facility] than at other [facility]. Direct result comparisons should only be made within the same method. Performed By: #### 1 4959-1 #### ALENA Paredes ([id number]) [facility] ([facility]) [id number] [address] 44326 Thyroxine.freeon 11-06-2024 Free T4 [Mass/Vol] 0.84 ng/dL Normal 0.61-1.12 [facility] Comment on above: Order Comment: Thyro xine Free testing is performed using different testing methodology at [facility] than at other [facility]. Direct result comparisons should only be made [...] By: #### 1 4959-1 #### ALENA Paredes ([id number]) [facility] (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 Performed By: #### 4 6128 #### LAB [address] [place] [address] Moody Martinez M.D. 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 [id number] Anion gap [Moles/Vol] 17 mmol/L Normal 10-20 [facility] Comment on above: Order Comment: [facility] has implemented the eGFR calculation approach that does not have a coefficient for race that conforms to the NKF-ASN Task Force Recommendations. Performed By: #### 4 6124 #### LAB [address] [place] [id number] Moody Martinez M.D. [id number] Calcium [Mass/Vol] 8.5 mg/dL Normal 8.4-10.2 [facility] Comment on above: Order Comment: [facility] has implemented the eGFR calculation approach that does not have a coefficient for race that conforms to the NKF-ASN Task Force Recommendations. Performed By: #### 4 6110 #### LAB [address] [place] [address] Moody Martinez M.D. [id number] Chloride [Moles/Vol] 108 mmol/L Normal 98-108 [facility] Comment on above: Order Comment: [facility] has implemented the eGFR calculation approach that does not have a coefficient for race that conforms to the NKF-ASN Task Force Recommendations. Performed By: #### 4 6124 #### LAB [address] [place] [address] Moody Martinez M.D. [id number] Creatinine [Mass/Vol] 2.44 mg/dL High 0.80-1.30 [facility] Comment on above: Order Comment: [facility] has implemented the eGFR calculation approach that does not have a coefficient for race that conforms to the NKF-ASN Task Force Recommendations. Performed By: #### 4 6124 #### LAB [address] [place] [address] Moody Martinez M.D. [id number] EGFR 26 mL/min/1.73 m2 Low >=60 [facility] Comment on above: Order Comment: [facility] has implemented the eGFR calculation approach that does not have a coefficient for race that conforms to the NKF-ASN Task Force Recommendations. Result Comment: Albin mated GFR was calculated using the 2020 CKD-EPI creatinine equation. Performed By: #### 4 6124 #### LAB [address] [place] [address] Moody Martinez M.D. [id number] Glucose [Mass/Vol] 107 mg/dL High 65-99 [facility] Comment on above: Order Comment: [facility] [employer] has implemented the eGFR calculation approach that does not have a coefficient for race that conforms to the NKF-ASN Task Force Recommendations. Performed By: #### 4 6124 #### LAB [address] [place] [address] Moody Martinez M.D. [id number] HCO3 (Bld) [Moles/Vol] 18 mmol/L Low 21-32 [facility] Comment on above: Order Comment: [facility] has implemented the eGFR calculation approach that does not have a coefficient for race that conforms to the NKF-ASN Task Force Recommendations. Performed By: #### 4 6124 #### LAB [address] [place] [address] Moody Martinez M.D. [id number] Potassium [Moles/Vol] 4.1 mmol/L Normal 3.5-5.1 [facility] Comment on above: Order Comment: [facility] has implemented the eGFR calculation approach that does not have a coefficient for race that conforms to the NKF-ASN Task Force Recommendations. Performed By: #### 4 6124 #### LAB [address] [place] [address] Moody Martinez M.D. [id number] Sodium [Moles/Vol] 139 mmol/L Normal 135-145 [facility] Comment on above: Order Comment: [facility] has implemented the eGFR calculation approach that does not have a coefficient for race that conforms to the NKF-ASN Task Force Recommendations. Performed By: #### 4 6124 #### LAB [address] [place] [address] Moody Martinez M.D. [id number] Urea nitrogen [Mass/Vol] 85 mg/dL High 8- [facility] Comment on above: Order Comment: [facility] [employer] has implemented the eGFR calculation approach that does not have a coefficient for race that conforms to the NKF-ASN Task Force Recommendations. Performed By: #### 4 6120 #### LAB [address] [place] [address] Moody Martinez M.D. [id number] Urea nitrogen/Creatinine [Mass ratio] 34.8 mg/mg High 10.0-20.0 [facility] Comment on above: Order Comment: [facility] [employer] has implemented the eGFR calculation approach that does not have a coefficient for race that conforms to the NKF-ASN Task Force Recommendations. Performed By: #### 4 6128 #### LAB [address] [place] [address] Moody Martinez M.D. [id number] BETA-HYDROXYBUTYRATEon 10-28 BETA-HYDROXYBUTYRATE 0.1 mmol/L Normal 0.0-0.3 [facility] Comment on above: Performed By: #### 4 5139 #### LAB [address] [place] [address] Moody Martinez M.D. [id number] BETA-HYDROXYBUTYRATE < Normal 0.0-0.3 [facility] Comment on above: Performed By: #### 4 5139 ####[facility] [address] [place] [id number] Moody Martinez M.D. [id number] Basic metabolic 2000 panelon 10-28-2024 Anion gap [Moles/Vol] 16 mmol/L 10 - 20 mmol/L [facility] Calcium [Mass/Vol] 8.5 mg/dL 8.4 - 10. 2 mg/dL [facility] Chloride [Moles/Vol] 108 mmol/L 98 - 10 8 mmol/L [facility] Creatinine [Mass/Vol] 2.31 mg/dL High 0.80 - 1.30 mg/dL [facility] GFR/1.73 sq M.predicted CKD-EPI (S/P/Bld) [Vol rate/Area] 28 Low - PINF [facility] Comment on above: Estimated GFR was ca lculated using the 2020 CKD-EPI creatinine equation. Glucose [Mass/Vol] 95 mg/dL 65 - 99 mg/dL [facility] HCO3 [Moles/Vol] 19 mmol/L Low 21 - 32 mmol/L [facility] Potassium [Moles/Vol] 4.1 mmol/L 3.5 - 5.1 mmol/L [facility] Sodium [Moles/Vol] 139 mmol/L 135 - 145 mmol/L [facility] Urea nitrogen [Mass/Vol] 82 mg/dL High 8 - 25 mg/dL [facility] Urea nitrogen/Creatinine [Mass ratio] 35.5 mg/mg High 10.0 - 20.0 [facility] has implemented the eGFR calculation approach that does not have a coefficient for race that conforms to the NKF-ASN Task Force Recommendations. [facility] Anion gap [Moles/Vol] 17 mmol/L 10 - 20 mmol/L [facility] Calcium [Mass/Vol] 8.5 mg/dL 8.4 - 10. 2 mg/dL [facility] Chloride [Moles/Vol] 108 mmol/L 98 - 10 8 mmol/L [facility] Creatinine [Mass/Vol] 2.44 mg/dL High 0.80 - 1.30 mg/dL [facility] GFR/1.73 sq M.predicted CKD-EPI (S/P/Bld) [Vol rate/Area] 26 Low - PINF [facility] Comment on above: Estimated GFR was ca lculated using the 2020 CKD-EPI creatinine equation. Glucose [Mass/Vol] 107 mg/dL High 65 - 99 mg/dL [facility] HCO3 [Moles/Vol] 18 mmol/L Low 21 - 32 mmol/L [facility] Potassium [Moles/Vol] 4.1 mmol/L 3.5 - 5.1 mmol/L [facility] Sodium [Moles/Vol] 139 mmol/L 135 - 145 mmol/L [facility] Urea nitrogen [Mass/Vol] 85 mg/dL High 8 - 25 mg/dL [facility] Urea nitrogen/Creatinine [Mass ratio] 34.8 mg/mg High 10.0 - 20.0 [facility] has implemented the eGFR calculation approach that does not have a coefficient for race that conforms to the NKF-ASN Task Force Recommendations. [facility] Anion gap [Moles/Vol] 16 mmol/L 10 - 20 mmol/L [facility] Calcium [Mass/Vol] 8.3 mg/dL Low 8.4 - 10. 2 mg/dL [facility] Chloride [Moles/Vol] 103 mmol/L 98 - 10 8 mmol/L [facility] Creatinine [Mass/Vol] 2.6 mg/dL High 0.80 - 1.30 mg/dL [facility] GFR/1.73 sq M.predicted CKD-EPI (S/P/Bld) [Vol rate/Area] 24 Low - PINF [facility] Comment on above: Estimated GFR was ca lculated using the 2020 CKD-EPI creatinine equation. Glucose [Mass/Vol] 495 mg/dL Critically high 65 - 99 mg/d L [facility] HCO3 [Moles/Vol] 18 mmol/L Low 21 - 32 mmol/L [facility] Potassium [Moles/Vol] 5 mmol/L 3.5 - 5.1 mmol/L [facility] Sodium [Moles/Vol] 132 mmol/L Low 135 - 145 mmol/L [facility] Urea nitrogen [Mass/Vol] 93 mg/dL High 8 - 25 mg/dL [facility] Urea nitrogen/Creatinine [Mass ratio] 35.8 mg/mg High 10.0 - 20.0 [facility] has implemented the eGFR calculation approach that does not have a coefficient for race that conforms to the NKF-ASN Task Force Recommendations. [facility] Beta hydroxybutyrate [Moles/ Vol]on 10-28-2024 Interpretation and review of laboratory results Normal [facility] Interpretation and review of laboratory results Normal [facility] Interpretation and review of laboratory results Abnormal [facility] Beta-Hydroxybutyrateon 10-28 Beta hydroxybutyrate [Moles/Vol] 0.1 mmol/L 0.0 - 0.3 mmol/L [facility] Beta hydroxybutyrate [Moles/Vol] mmol/L 0.0 - 0.3 mmol/L [facility] Beta hydroxybutyrate [Moles/Vol] 0.4 mmol/L High 0.0 - 0.3 mmol/L [facility] CBC Auto Differentialon 10-02 Basophils (Bld) [#/Vol] 0.08 10*3/uL [facility] Basophils/100 WBC (Bld) 0.8 % [facility] Eosinophils (Bld) [#/Vol] 0.06 10*3/uL [facility] Eosinophils/100 WBC (Bld) 0.6 % [facility] Erythrocyte distribution width (RBC) [Entitic vol] 13.6 % 11.6 - 14.8 % [facility] Hematocrit (Bld) [Volume fraction] 29 % Low 41.0 - 53.0 % [facility] Hemoglobin (Bld) [Mass/Vol] 9.3 g/dL Low 13.5 - 17.5 g/dL [facility] Immature granulocytes (Bld) [#/Vol] 0.03 10*3/uL [facility] Immature granulocytes/100 WBC (Bld) 0.3 % [facility] Comment on above: The IG parameter is the percentage of metamyelocytes, myelocytes and promyelocytes. An immature granulocyte count (IG) of 1% or more suggests the possibility of infection, an IG count of 3% is very likely related to an infection. Interpretation and review of laboratory results Abnormal [facility] Lymphocytes (Bld) [#/Vol] 2.94 10*3/uL [facility] Lymphocytes/100 WBC (Bld) 28.7 % [facility] MCH (RBC) [Entitic mass] 30.3 pg 26.0 - 34.0 pg [facility] MCHC (RBC) [Mass/Vol] 32.1 g/dL 31.0 - 37.0 g/dL [facility] MCV (RBC) [Entitic vol] 94.5 fL 80.0 - 100.0 fL [facility] Monocytes (Bld) [#/Vol] 1.02 10*3/uL High [facility] Monocytes/100 WBC (Bld) 10 % [facility] Neutrophils (Bld) [#/Vol] 6.12 10*3/uL [facility] Neutrophils/100 WBC (Bld) 59.6 % [facility] Nucleated RBC (Bld) [#/Vol] 0 10*3/uL [facility] Nucleated RBC/100 WBC (Bld) [Ratio] 0 % [facility] Platelet mean volume (Bld) [Entitic vol] 10.8 fL 9.4 - 12.4 fL [facility] Platelets (Bld) [#/Vol] 188 10*3/uL [facility] RBC (Bld) [#/Vol] 3.07 10*6/uL Low [facility] WBC (Bld) [#/Vol] 10.25 10*3/uL [facility] CBC WITH AUTO DIFFERENTIALon 10-28-2024 AUTO NRBC 0.0 % [facility] Comment on above: Performed By: #### L [id number] #### LAB [address] [place] [address] Moody Martinez M.D. [id number] AUTO NRBC ABS COUNT 0.00 K/mcL Normal 0.00-0.00 [facility] Comment on above: Performed By: #### L [id number] #### LAB [address] [place], [place] [address] Moody Martinez M.D. [id number] BASOPHILS ABSOLUTE COUNT 0.08 K/mcL Normal 0.00-0.30 [facility] Comment on above: Performed By: #### L [id number] #### LAB [address] [place], [place] [address] Moody Martinez M.D. [id number] Basophils/100 WBC (Bld) 0.8 % [facility] Comment on above: Performed By: #### L [id number] #### LAB [address] [place], [place] [address] Moody Martinez M.D. [id number] Eosinophils (Bld) [#/Vol] 0.06 10*3/uL Normal 0.00-0.50 [facility] Comment on above: Performed By: #### L [id number] #### LAB [address] [place] [address] Moody Martinez M.D. [id number] Eosinophils/100 WBC (Bld) 0.6 % Normal [facility] Comment on above: Performed By: #### L [id number] #### LAB [address] [place] [address] Moody Martinez M.D. [id number] Erythrocyte distribution width (RBC) [Ratio] 13.6 % Normal 11.6-14.8 [facility] Comment on above: Performed By: #### L [id number] #### LAB [address] [place] [address] Moody Martinez M.D. [id number] Hematocrit (Bld) [Volume fraction] 29.0 % Low 41.0-53.0 [facility] Comment on above: Performed By: #### L [id number] #### LAB [address] [place] [address] Moody Martinez M.D. [id number] Hemoglobin (Bld) [Mass/Vol] 9.3 g/dL Low 13.5-17.5 [facility] Comment on above: Performed By: #### L [id number] #### LAB [address] [place] [address] Moody Martinez M.D. [id number] IG ABSOLUTE 0.03 K/mcL Normal 0.00-0.30 [facility] Comment on above: Performed By: #### L [id number] #### LAB [address] [place] [address] Moody Martinez M.D. [id number] IG PERCENT 0.30 % Normal [facility] Comment on above: Result Comment: The IG parameter is the percentage of metamyelocytes, myelocytes and promyelocytes. An immature granulocyte count (IG) of 1% or more suggests the possibility of infection, an IG count of 3% is very likely related to an infection. Performed By: #### L [id number] #### LAB [address] [place] [address] Moody Martinez M.D. [id number] Lymphocytes (Bld) [#/Vol] 2.94 10*3/uL Normal 0.90-4.00 [facility] Comment on above: Performed By: #### L [id number] #### LAB [address] [place] [address] Moody Martinez M.D. [id number] Lymphocytes/100 WBC (Bld) 28.7 % Normal [facility] Comment on above: Performed By: #### L [id number] #### LAB [address] [place] [address] Moody Martinez M.D. [id number] MCH (RBC) [Entitic mass] 30.3 pg Normal 26.0-34.0 [facility] Comment on above: Performed By: #### L [id number] #### LAB [address] [place] [address] Moody Martinez M.D. [id number] MCV (RBC) [Entitic vol] 94.5 fL Normal 80.0-100.0 [facility] Comment on above: Performed By: #### L [id number] #### LAB [address] [place] [address] Moody Martinez M.D. [id number] MEAN CORPUSCULAR HEMOGLOBIN CONC 32.1 g/dL Normal 31.0-37.0 [facility] Comment on above: Performed By: #### L [id number] #### LAB [address] [place] [address] Moody Martinez M.D. [id number] Monocytes (Bld) [#/Vol] 1.02 10*3/uL High 0.30-0.90 [facility] Comment on above: Performed By: #### L [id number] #### LAB [address] [place] [address] Moody Martinez M.D. [id number] Monocytes/100 WBC (Bld) 10.0 % Normal [facility] Comment on above: Performed By: #### L [id number] #### LAB [address] [place] [address] Moody Martinez M.D. [id number] NEUTROPHILS ABSOLUTE COUNT 6.12 K/mcL Normal 1.70-7.00 [facility] Comment on above: Performed By: #### L [id number] #### LAB [address] [place] [address] Moody Martinez M.D. [id number] Neutrophils/100 WBC (Bld) 59.6 % Normal [facility] Comment on above: Performed By: #### L [id number] #### LAB [address] [place] [address] Moody Martinez M.D. [id number] Platelet mean volume (Bld) [Entitic vol] 10.8 fL Normal 9.4-12.4 [facility] Comment on above: Performed By: #### L [id number] #### LAB [address] [address] Moody Martinez M.D. [id number] Platelets (Bld) [#/Vol] 188 10*3/uL Normal 150-400 [facility] Comment on above: Performed By: #### L [id number] #### LAB [address] [address] Moody Martinez M.D. [id number] RBC (Bld) [#/Vol] 3.07 10*6/uL Low 4.50-5.90 [facility] Comment on above: Performed By: #### L [id number] #### MH LAB [address] [address] Moody Martinez M.D. [id number] WBC (Bld) [#/Vol] 10.25 10*3/uL Normal 4.50-11.00 [facility] Comment on above: Performed By: #### L [id number] #### MH LAB [address] [address] Moody Martinez M.D. [id number] CONSULTon 10-28-2024 CONSULT - Attestation signed by Pedro West MD at 10/29/2024 9:27 AM Patient was evaluated by Keeley Patton CNP. Patient ID: Patient Name: Enoc Fernandes Admit Date: 10/27/2024 MR #: [id number] : 1945 Current location: [facility] [...] with chronic low back pain presented to [facility] on 10/27/2024 for an elective left heart [...] Diagnosed in 1994. Patient is managed by [facility] endocrinology for his type 1 diabetes. He is currently taking Admelog insulin: 10 units at mealtime Lantus insulin: 12 units at bedtime Current monitoring regimen: home blood tests - 3 times daily Complications of diabetes include: Retinopathy: Negative Nephropathy: Positive Peripheral Neuropathy: Positive Autonomic Neuropathy: Negative Allergies: Allergies Allergen Reactions Qoplkes-Hre-Yjw Reductase Inhibitors Muscle cramps Home Medications: Outpatient [...] MG table (more content not included)... Normal [facility] Glucose (Bld) [Mass/Vol]on 12-29-2023 Glucose [Mass/Vol] 321 mg/dL High 65 - 99 mg/dL [facility] Interpretation and review of laboratory results Abnormal [facility] Glucose [Mass/Vol] 288 mg/dL High 65 - 99 mg/dL [facility] Interpretation and review of laboratory results Abnormal [facility] Glucose [Mass/Vol] 130 mg/dL High 65 - 99 mg/dL [facility] Interpretation and review of laboratory results Abnormal [facility] Glucose [Mass/Vol] 55 mg/dL Critically low 65 - 99 mg/dL [facility] Interpretation and review of laboratory results Abnormal [facility] Critical result acte d upon time of test. Test performed at bedside. [facility] Glucose [Mass/Vol] 85 mg/dL 65 - 99 mg/dL [facility] Interpretation and review of laboratory results Normal [facility] Glucose [Mass/Vol] 111 mg/dL High 65 - 99 mg/dL [facility] Interpretation and review of laboratory results Abnormal [facility] Glucose [Mass/Vol] 69 mg/dL 65 - 99 mg/dL [facility] Interpretation and review of laboratory results Normal [facility] Glucose [Mass/Vol] 76 mg/dL 65 - 99 mg/dL [facility] Interpretation and review of laboratory results Normal [facility] Glucose [Mass/Vol] 94 mg/dL 65 - 99 mg/dL [facility] Interpretation and review of laboratory results Normal [facility] Glucose [Mass/Vol] 115 mg/dL High 65 - 99 mg/dL [facility] Interpretation and review of laboratory results Abnormal [facility] Glucose [Mass/Vol] 168 mg/dL High 65 - 99 mg/dL [facility] Interpretation and review of laboratory results Abnormal [facility] Glucose [Mass/Vol] 215 mg/dL High 65 - 99 mg/dL [facility] Interpretation and review of laboratory results Abnormal [facility] Glucose [Mass/Vol] 336 mg/dL High 65 - 99 mg/dL [facility] Interpretation and review of laboratory results Abnormal [facility] Glucose [Mass/Vol] 443 mg/dL Critically high 65 - 99 mg/d L [facility] Interpretation and review of laboratory results Abnormal [facility] Critical result acte d upon time of test. Test performed at bedside. [facility] HbA1c (Bld) [Mass fraction]o n 10-28-2024 Average glucose Estimated from glycated hemoglobin (Bld) [Mass/Vol] 237 mg/dL High 74 - 114 mg/dL [facility] Interpretation and review of laboratory results Abnormal [facility] Hemoglobin A1con 10-28-2024 HbA1c (Bld) [Mass fraction] 9.9 % High 4.2 - 5.6 % [facility] MAGNESIUM LEVELon 10-28-2024 Magnesium [Mass/Vol] 2.6 mg/dL High 1.6-2.4 [facility] Comment on above: Performed By: #### 4 [id number] #### MH LAB [address] [place], [place] [address] Moody Martinez M.D. [id number] Magnesium [Mass/Vol] 2.6 mg/dL High 1.6-2.4 [facility] Comment on above: Performed By: #### 4 [id number] #### MH LAB [address] [place], [place] [address] Moody Martinez M.D. [id number] Magnesium Levelon 10-28-2024 Magnesium [Mass/Vol] 2.6 mg/dL High 1.6 - 2 .4 mg/dL [facility] Magnesium [Mass/Vol] 2.6 mg/dL High 1.6 - 2 .4 mg/dL [facility] Magnesium [Mass/Vol] 2.6 mg/dL High 1.6 - 2 .4 mg/dL [facility] No Panel Informationon 10-28 Interpretation and review of laboratory results Abnormal [facility] Interpretation and review of laboratory results Abnormal [facility] Interpretation and review of laboratory results Abnormal [facility] PHOSPHORUSon 10-28-2024 Phosphate [Mass/Vol] 4.7 mg/dL High 2.3-3.7 [facility] Comment on above: Performed By: #### 4 [id number] ####MH LAB [address] [place], [place] [address] Moody Martinez M.D. [id number] POC GLUCOSE [facility] 024 Glucose [Mass/Vol] 321 mg/dL High [address] [place] [address] Comment on above: Performed By: #### L [id number] #### MH LAB [address] [place], [place] [address] Moody Martinez M.D. [id number] Glucose [Mass/Vol] 288 mg/dL High [address] [place] [address] Comment on above: Performed By: #### 4 6932 ####MH LAB [address] [place], [place] [address] Moody Martinez M.D. [id number] Glucose [Mass/Vol] 130 mg/dL High [address] [place] [address] Comment on above: Performed By: #### 4 6932 ####MH LAB [address] [address] Moody Martinez M.D. [id number] Glucose [Mass/Vol] 55 mg/dL Off scale low [address] [place] [address] Comment on above: Order Comment: Criti christian result acted upon time of test. Test performed at bedside. Performed By: #### 4 [id number] ####MH LAB [address] [address] Moody Martinez M.D. [id number] Glucose [Mass/Vol] 85 mg/dL Normal [address] [place] [address] Comment on above: Performed By: #### 4 [id number] ####[facility] [address] [address] Moody Martinez M.D. [id number] Glucose [Mass/Vol] 111 mg/dL High [address] [place] [address] Comment on above: Performed By: #### L [id number] #### [facility] [address] [address] Moody Martinez M.D. [id number] Glucose [Mass/Vol] 69 mg/dL Normal [address] [place] [address] Comment on above: Performed By: #### 4 6932 ####[facility] [address] [address] Moody Martinez M.D. [id number] Glucose [Mass/Vol] 76 mg/dL Normal [address] [place] [address] Comment on above: Performed By: #### 4 [id number] #### LAB [address] [address] Moody Martinez M.D. [id number] Glucose [Mass/Vol] 94 mg/dL Normal [address] [place] [address] Comment on above: Performed By: #### 4 [id number] #### LAB [address] [address] Moody Martinez M.D. [id number] Glucose [Mass/Vol] 115 mg/dL High [address] [place] [address] Comment on above: Performed By: #### 4 6932 ####MH LAB [address] [place], [place] [address] Moody Martinez M.D. [id number] Glucose [Mass/Vol] 168 mg/dL High [address] [place] [address] Comment on above: Performed By: #### L [id number] #### MH LAB [address] [address] Moody Martinez M.D. [id number] Glucose [Mass/Vol] 215 mg/dL High [address] [place] [address] Comment on above: Performed By: #### 4 [id number] ####MH LAB [address] [address] Moody Martinez M.D. [id number] Glucose [Mass/Vol] 336 mg/dL High [address] [place] [address] Comment on above: Performed By: #### 4 [id number] #### LAB [address] [address] Moody Martinez M.D. [id number] Phosphoruson 10-28-2024 Phosphate [Mass/Vol] 4.7 mg/dL High 2.3 - 3 .7 mg/dL [facility] Phosphate [Mass/Vol] 4.4 mg/dL High 2.3 - 3 .7 mg/dL [facility] ABOR VERIFICATIONon 024 ABO and Rh group Nom (Bld) Blood group A Rh(D) positive Normal [facility] ABO and Rh group Nom (d) ABO/Rh Verification Normal [facility] Comment on above: Result Comment: Bc ent's ABO/Rh is verified. ABOR Verificationon 024 ABO and Rh group Nom (Bld) Blood group A Rh(D) positive [facility] ABO and Rh group Nom (Bld) ABO/Rh Verification [facility] Comment on above: Patient's ABO/Rh is verified. [facility] AMYLASEon 10-27-2024 Amylase [Catalytic activity/Vol] 26.8 U/L Normal 13.0-53.0 [facility] Comment on above: Performed By: #### 4 [id number] #### MH LAB [address] [address] Moody Martinez M.D. [id number] APTTon 10-27-2024 aPTT Coag (Bld) [Time] 74 s High [facility] aPTT Coag (Bld) [Time] 74 s High 23-34 [facility] Comment on above: Order Comment: Gerson ortegautic range for APTT's is 68 - 104 seconds Performed By: #### 4 5113 #### LAB [address] [place], [place] [address] Moody Martinez M.D. [id number] Amylaseon 10-27-2024 Amylase.pancreatic [Catalytic activity/Vol] 26.8 U/L 13.0 - 53.0 U/L [facility] BASIC METABOLIC PANELon 10-02 Anion gap [Moles/Vol] 16 mmol/L Normal 10-20 [facility] Comment on above: Order Comment: [facility] has implemented the eGFR calculation approach that does not have a coefficient for race that conforms to the NKF-ASN Task Force Recommendations. Performed By: #### 4 6932 #### LAB [address] [address] Moody Martinez M.D. [id number] Calcium [Mass/Vol] 8.3 mg/dL Low 8.4-10.2 [facility] Comment on above: Order Comment: [facility] has implemented the eGFR calculation approach that does not have a coefficient for race that conforms to the NKF-ASN Task Force Recommendations. Performed By: #### 4 6932 #### LAB [address] [address] Moody Martinez M.D. [id number] Chloride [Moles/Vol] 103 mmol/L Normal 98-108 [facility] Comment on above: Order Comment: [facility] has implemented the eGFR calculation approach that does not have a coefficient for race that conforms to the NKF-ASN Task Force Recommendations. Performed By: #### 4 6932 #### LAB [address] [place], [place] [address] Moody Martinez M.D. [id number] Creatinine [Mass/Vol] 2.60 mg/dL High 0.80-1.30 [facility] Comment on above: Order Comment: [facility] has implemented the eGFR calculation approach that does not have a coefficient for race that conforms to the NKF-ASN Task Force Recommendations. Performed By: #### 4 6913 #### LAB [address] [place], [place] [address] Moody Martinez M.D. [id number] EGFR 24 mL/min/1.73 m2 Low >=60 [facility] Comment on above: Order Comment: [facility] has implemented the eGFR calculation approach that does not have a coefficient for race that conforms to the NKF-ASN Task Force Recommendations. Result Comment: Albin mated GFR was calculated using the 2020 CKD-EPI creatinine equation. Performed By: #### 4 6965 #### [facility] [address] [address] Moody Martinez M.D. [id number] Glucose [Mass/Vol] 495 mg/dL Off scale high 65-99 [facility] Comment on above: Order Comment: [facility] [employer] has implemented the eGFR calculation approach that does not have a coefficient for race that conforms to the NKF-ASN Task Force Recommendations. Performed By: #### 4 6971 #### [facility] [address] [address] Moody Martinez M.D. [id number] HCO3 (Bld) [Moles/Vol] 18 mmol/L Low 21-32 [facility] Comment on above: Order Comment: [facility] [employer] has implemented the eGFR calculation approach that does not have a coefficient for race that conforms to the NKF-ASN Task Force Recommendations. Performed By: #### 4 6939 #### MH LAB [address] [place], [place] [address] Moody Martinez M.D. [id number] Potassium [Moles/Vol] 5.0 mmol/L Normal 3.5-5.1 [facility] Comment on above: Order Comment: [facility] has implemented the eGFR calculation approach that does not have a coefficient for race that conforms to the NKF-ASN Task Force Recommendations. Performed By: #### 4 0035 #### LAB [address] [address] Moody Martinez M.D. [id number] Sodium [Moles/Vol] 132 mmol/L Low 135-145 [facility] Comment on above: Order Comment: [facility] has implemented the eGFR calculation approach that does not have a coefficient for race that conforms to the NKF-ASN Task Force Recommendations. Performed By: #### 4 6932 #### LAB [address] [address] Moody Martinez M.D. [id number] Urea nitrogen [Mass/Vol] 93 mg/dL High 8-25 [facility] Comment on above: Order Comment: [facility] has implemented the eGFR calculation approach that does not have a coefficient for race that conforms to the NKF-ASN Task Force Recommendations. Performed By: #### 4 6932 #### LAB [address] [address] Moody Martinez M.D. [id number] Urea nitrogen/Creatinine [Mass ratio] 35.8 mg/mg High 10.0-20.0 [facility] Comment on above: Order Comment: [facility] has implemented the eGFR calculation approach that does not have a coefficient for race that conforms to the NKF-ASN Task Force Recommendations. Performed By: #### 4 6932 #### LAB [address] [address] Moody Martinez M.D. [id number] BETA-HYDROXYBUTYRATEon 10-27 BETA-HYDROXYBUTYRATE 0.4 mmol/L High 0.0-0.3 [facility] Comment on above: Performed By: #### 4 5139 ####MH LAB [address] [address] Moody Martinez M.D. [id number] BETA-HYDROXYBUTYRATE 2.3 mmol/L High 0.0-0.3 [facility] Comment on above: Performed By: #### 4 5139 #### LAB [address] [address] Moody Martinez M.D. [id number] BETA-HYDROXYBUTYRATE 0.7 mmol/L High 0.0-0.3 [facility] Comment on above: Performed By: #### 4 6932 #### MH LAB [address] [place], [place] [address] Moody Martinez M.D. [id number] BILIRUBIN, DIRECTon 10-27-20 BILIRUBIN, DIRECT < Normal 0.0-0.4 [facility] Comment on above: Performed By: #### 4 5145 #### LAB [address] [place], [place] [address] Moody Martinez M.D. [id number] Beta hydroxybutyrate [Moles/ Vol]on 10-27-2024 Interpretation and review of laboratory results Abnormal [facility] Interpretation and review of laboratory results Abnormal [facility] Beta-Hydroxybutyrateon 10-27 Beta hydroxybutyrate [Moles/Vol] 2.3 mmol/L High 0.0 - 0.3 mmol/L [facility] Beta hydroxybutyrate [Moles/Vol] 0.7 mmol/L High 0.0 - 0.3 mmol/L [facility] Bilirubin.direct [Mass/Vol]o n 10-27-2024 Bilirubin.conjugated [Mass/Vol] mg/dL 0.0 - 0.4 mg/dL [facility] Interpretation and review of laboratory results Normal [facility] Blood type and Indirect anti body screen panel (Bld)on 10-27-2024 ABO and Rh group Nom (Bld) Blood group A Rh(D) positive [facility] Blood group antibody screen Ql Negative [facility] Specimen Expires 10/30/2024 23:59 EST [facility] CBC Auto Differentialon 10-02 Basophils (Bld) [#/Vol] 0.04 10*3/uL [facility] Basophils/100 WBC (Bld) 0.5 % [facility] Eosinophils (Bld) [#/Vol] 0 10*3/uL [facility] Eosinophils/100 WBC (Bld) 0 % [facility] Erythrocyte distribution width (RBC) [Entitic vol] 13.7 % 11.6 - 14.8 % [facility] Hematocrit (Bld) [Volume fraction] 34.8 % Low 41.0 - 53.0 % [facility] Hemoglobin (Bld) [Mass/Vol] 11.2 g/dL Low 13.5 - 17.5 g/dL [facility] Immature granulocytes (Bld) [#/Vol] 0.04 10*3/uL [facility] Immature granulocytes/100 WBC (Bld) 0.5 % [facility] Comment on above: The IG parameter is the percentage of metamyelocytes, myelocytes and promyelocytes. An immature granulocyte count (IG) of 1% or more suggests the possibility of infection, an IG count of 3% is very likely related to an infection. Interpretation and review of laboratory results Abnormal [facility] Lymphocytes (Bld) [#/Vol] 1.2 10*3/uL [facility] Lymphocytes/100 WBC (Bld) 13.8 % [facility] MCH (RBC) [Entitic mass] 30 pg 26.0 - 34.0 pg [facility] MCHC (RBC) [Mass/Vol] 32.2 g/dL 31.0 - 37.0 g/dL [facility] MCV (RBC) [Entitic vol] 93.3 fL 80.0 - 100.0 fL [facility] Monocytes (Bld) [#/Vol] 0.11 10*3/uL Low [facility] Monocytes/100 WBC (Bld) 1.3 % [facility] Neutrophils (Bld) [#/Vol] 7.32 10*3/uL High [facility] Neutrophils/100 WBC (Bld) 83.9 % [facility] Nucleated RBC (Bld) [#/Vol] 0 10*3/uL [facility] Nucleated RBC/100 WBC (Bld) [Ratio] 0 % [facility] Platelet mean volume (Bld) [Entitic vol] 11.2 fL 9.4 - 12.4 fL [facility] Platelets (Bld) [#/Vol] 234 10*3/uL [facility] RBC (Bld) [#/Vol] 3.73 10*6/uL Low [facility] WBC (Bld) [#/Vol] 8.71 10*3/uL [facility] CBC WITH AUTO DIFFERENTIALon 10-27-2024 AUTO NRBC 0.0 % Normal [facility] Comment on above: Performed By: #### L [id number] ####[facility] LAB [address] [place], [place] [address] Moody Martinez M.D. [id number] AUTO NRBC ABS COUNT 0.00 K/mcL Normal 0.00-0.00 [facility] Comment on above: Performed By: #### L [id number] #### LAB [address] [address] Moody Martinez M.D. [id number] BASOPHILS ABSOLUTE COUNT 0.04 K/mcL Normal 0.00-0.30 [facility] Comment on above: Performed By: #### L [id number] #### LAB [address] [address] oMody Martinez M.D. [id number] Basophils/100 WBC (Bld) 0.5 % Normal [facility] Comment on above: Performed By: #### L [id number] #### LAB [address] [address] Moody Martinez M.D. [id number] Eosinophils (Bld) [#/Vol] 0.00 10*3/uL Normal 0.00-0.50 [facility] Comment on above: Performed By: #### L [id number] #### LAB [address] [place] [address] Moody Martinez M.D. [id number] Eosinophils/100 WBC (Bld) 0.0 % Normal [facility] Comment on above: Performed By: #### L [id number] #### LAB [address] [place] [address] Moody Martinez M.D. [id number] Erythrocyte distribution width (RBC) [Ratio] 13.7 % Normal 11.6-14.8 [facility] Comment on above: Performed By: #### L [id number] #### LAB [address] [address] Moody Martinez M.D. [id number] Hematocrit (Bld) [Volume fraction] 34.8 % Low 41.0-53.0 [facility] Comment on above: Performed By: #### L [id number] #### LAB [address] [place] [address] Moody Martinez M.D. [id number] Hemoglobin (Bld) [Mass/Vol] 11.2 g/dL Low 13.5-17.5 [facility] Comment on above: Performed By: #### L [id number] #### LAB [address] [address] Moody Martinez M.D. [id number] IG ABSOLUTE 0.04 K/mcL Normal 0.00-0.30 [facility] Comment on above: Performed By: #### L [id number] #### LAB [address] [address] Moody Martinez M.D. [id number] IG PERCENT 0.50 % Normal [facility] Comment on above: Result Comment: The IG parameter is the percentage of metamyelocytes, myelocytes and promyelocytes. An immature granulocyte count (IG) of 1% or more suggests the possibility of infection, an IG count of 3% is very likely related to an infection. Performed By: #### L [id number] #### LAB [address] [address] Moody Martinez M.D. [id number] Lymphocytes (Bld) [#/Vol] 1.20 10*3/uL Normal 0.90-4.00 [facility] Comment on above: Performed By: #### L [id number] #### LAB [address] [address] Moody Martinez M.D. [id number] Lymphocytes/100 WBC (Bld) 13.8 % Normal [facility] Comment on above: Performed By: #### L [id number] #### LAB [address] [address] Moody Martinez M.D. [id number] MCH (RBC) [Entitic mass] 30.0 pg Normal 26.0-34.0 [facility] Comment on above: Performed By: #### L [id number] #### LAB [address] [address] Moody Martinez M.D. [id number] MCV (RBC) [Entitic vol] 93.3 fL Normal 80.0-100.0 [facility] Comment on above: Performed By: #### L [id number] #### LAB [address] [address] Moody Martinez M.D. [id number] MEAN CORPUSCULAR HEMOGLOBIN CONC 32.2 g/dL Normal 31.0-37.0 [facility] Comment on above: Performed By: #### L [id number] #### LAB [address] [address] Moody Martinez M.D. [id number] Monocytes (Bld) [#/Vol] 0.11 10*3/uL Low 0.30-0.90 [facility] Comment on above: Performed By: #### L [id number] #### LAB [address] [address] Moody Martinez M.D. [id number] Monocytes/100 WBC (Bld) 1.3 % Normal [facility] Comment on above: Performed By: #### L [id number] #### LAB [address] [address] Moody Martinez M.D. [id number] NEUTROPHILS ABSOLUTE COUNT 7.32 K/mcL High 1.70-7.00 [facility] Comment on above: Performed By: #### L [id number] #### LAB [address] [place] [address] Moody Martinez M.D. [id number] Neutrophils/100 WBC (Bld) 83.9 % Normal [facility] Comment on above: Performed By: #### L [id number] #### LAB [address] [place] [address] Moody Martinez M.D. [id number] Platelet mean volume (Bld) [Entitic vol] 11.2 fL Normal 9.4-12.4 [facility] Comment on above: Performed By: #### L [id number] #### LAB [address] [place] [address] Moody Martinez M.D. [id number] Platelets (Bld) [#/Vol] 234 10*3/uL Normal 150-400 [facility] Comment on above: Performed By: #### L [id number] #### LAB [address] [address] Moody Martinez M.D. [id number] RBC (Bld) [#/Vol] 3.73 10*6/uL Low 4.50-5.90 [facility] Comment on above: Performed By: #### L [id number] #### LAB [address] [address] Moody Martinez M.D. [id number] WBC (Bld) [#/Vol] 8.71 10*3/uL Normal 4.50-11.00 [facility] Comment on above: Performed By: #### L [id number] #### LAB [address] [address] Moody Martinez M.D. [id number] CITRATED TEG (CARDIAC) WITH HEPARINASE PANEL [facility] 10-27-2024 (CFF-FLEV) CITRATED FUNCTIONAL FIBRINOGEN -EST. FUNCTIONAL FIBRINOGEN LEVEL 381.4 mg/dL Normal 278.0-581.0 [facility] Comment on above: Performed By: #### L [id number] #### LAB [address] [address] Moody Martinez M.D. [id number] (CFF-MA) CITRATED FUNCTIONAL FIBRINOGEN - [place] 20.9 mm Normal 15.0-32.0 [facility] Comment on above: Performed By: #### L [id number] #### LAB [address] [address] Moody Martinez M.D. [id number] (CK-ANGLE) CITRATED KAOLIN-ALPHA ANGLE 73.2 deg Normal 63.0-78.0 [facility] Comment on above: Performed By: #### L [id number] #### LAB [address] [address] Moody Martinez M.D. [id number] (CK-K) CITRATED KAOLIN-SPEED OF CLOT FORMATION 1.3 min Normal 0.8-2.1 [facility] Comment on above: Performed By: #### L [id number] ####MH LAB [address] [address] Moody Martinez M.D. [id number] (CK-MA) CITRATED KAOLIN-MAXIMUM CLOT STRENGTH 50.9 mm Low 52.0-69.0 [facility] Comment on above: Performed By: #### L [id number] ####MH LAB [address] [address] Moody Martinez M.D. [id number] (CK-R) CITRATED KAOLIN - REACTION TIME 16.4 min High 4.6-9.1 [facility] Comment on above: Performed By: #### L [id number] ####[facility] LAB [address] [address] Moody Martinez M.D. [id number] (CKH-R) CITRATED KAOLIN WITH HEPARINASE-REACTION TIME 7.6 min Normal 4.3-8.3 [facility] Comment on above: Performed By: #### L [id number] ####[facility] LAB [address] [address] Moody Martinez M.D. [id number] (PRESSER COTTON GINNING-MA) CITRATED RAPID TEG - MA 62.3 mm Normal 52.0-70.0 [facility] Comment on above: Performed By: #### L [id number] #### LAB [address] [address] Moody Martinez M.D. [id number] COMPREHENSIVE METABOLIC PANE Jame 10-27-2024 Albumin [Mass/Vol] 3.4 g/dL Normal 3.2-5.2 [facility] Comment on above: Order Comment: [facility] has implemented the eGFR calculation approach that does not have a coefficient for race that conforms to the NKF-ASN Task Force Recommendations. Performed By: #### 4 [id number] ####[facility] LAB [address] [address] Moody Martinez M.D. [id number] ALP [Catalytic activity/Vol] 86 U/L Normal 40-150 [facility] Comment on above: Order Comment: [facility] has implemented the eGFR calculation approach that does not have a coefficient for race that conforms to the NKF-ASN Task Force Recommendations. Performed By: #### 4 [id number] #### LAB [address] [address] Moody Martinez M.D. [id number] ALT [Catalytic activity/Vol] 13 U/L Normal 0-50 U/L [facility] Comment on above: Order Comment: [facility] has implemented the eGFR calculation approach that does not have a coefficient for race that conforms to the NKF-ASN Task Force Recommendations. Performed By: #### 4 6126 #### LAB [address] [address] Moody Martinez M.D. [id number] Anion gap [Moles/Vol] 20 mmol/L Normal 10-20 [facility] Comment on above: Order Comment: [facility] has implemented the eGFR calculation approach that does not have a coefficient for race that conforms to the NKF-ASN Task Force Recommendations. Performed By: #### 4 6126 #### LAB [address] [address] Moody Martinez M.D. [id number] AST [Catalytic activity/Vol] 12 U/L Normal 0-50 U/L [facility] Comment on above: Order Comment: [facility] has implemented the eGFR calculation approach that does not have a coefficient for race that conforms to the NKF-ASN Task Force Recommendations. Performed By: #### 4 6126 #### LAB [address] [address] Moody Martinez M.D. [id number] Bilirubin [Mass/Vol] 0.3 mg/dL Normal 0.0-1.3 [facility] Comment on above: Order Comment: [facility] has implemented the eGFR calculation approach that does not have a coefficient for race that conforms to the NKF-ASN Task Force Recommendations. Performed By: #### 4 6126 #### LAB [address] [place], [place] [address] Moody Martinez M.D. [id number] Calcium [Mass/Vol] 8.4 mg/dL Normal 8.4-10.2 [facility] Comment on above: Order Comment: [facility] has implemented the eGFR calculation approach that does not have a coefficient for race that conforms to the NKF-ASN Task Force Recommendations. Performed By: #### 4 6126 #### LAB [address] [address] Moody Martinez M.D. [id number] Chloride [Moles/Vol] 99 mmol/L Normal 98-108 [facility] Comment on above: Order Comment: [facility] has implemented the eGFR calculation approach that does not have a coefficient for race that conforms to the NKF-ASN Task Force Recommendations. Performed By: #### 4 6126 #### LAB [address] [address] Moody Martinez M.D. [id number] Creatinine [Mass/Vol] 2.55 mg/dL High 0.80-1.30 [facility] Comment on above: Order Comment: [facility] has implemented the eGFR calculation approach that does not have a coefficient for race that conforms to the NKF-ASN Task Force Recommendations. Performed By: #### 4 6126 #### LAB [address] [address] Moody Martinez M.D. [id number] EGFR 25 mL/min/1.73 m2 Low >=60 [facility] Comment on above: Order Comment: [facility] has implemented the eGFR calculation approach that does not have a coefficient for race that conforms to the NKF-ASN Task Force Recommendations. Result Comment: Albin mated GFR was calculated using the 2020 CKD-EPI creatinine equation. Performed By: #### 4 6126 #### LAB [address] [address] Moody Martinez M.D. [id number] Glucose [Mass/Vol] 564 mg/dL Off scale high 65-99 [facility] Comment on above: Order Comment: [facility] has implemented the eGFR calculation approach that does not have a coefficient for race that conforms to the NKF-ASN Task Force Recommendations. Performed By: #### 4 6126 #### LAB [address] [address] Moody Martinez M.D. [id number] HCO3 (Bld) [Moles/Vol] 15 mmol/L Low 21-32 [facility] Comment on above: Order Comment: [facility] [facility] has implemented the eGFR calculation approach that does not have a coefficient for race that conforms to the NKF-ASN Task Force Recommendations. Performed By: #### 4 6126 #### LAB [address] [address] Moody Martinez M.D. [id number] Potassium [Moles/Vol] 5.9 mmol/L High 3.5-5.1 [facility] Comment on above: Order Comment: [facility] has implemented the eGFR calculation approach that does not have a coefficient for race that conforms to the NKF-ASN Task Force Recommendations. Performed By: #### 4 6126 #### LAB [address] [address] Moody Martinez M.D. [id number] Protein [Mass/Vol] 5.8 g/dL Low 6.0-8.0 [facility] Comment on above: Order Comment: [facility] has implemented the eGFR calculation approach that does not have a coefficient for race that conforms to the NKF-ASN Task Force Recommendations. Performed By: #### 4 6126 #### LAB [address] [address] Moody Martinez M.D. [id number] Sodium [Moles/Vol] 128 mmol/L Low 135-145 [facility] Comment on above: Order Comment: [facility] has implemented the eGFR calculation approach that does not have a coefficient for race that conforms to the NKF-ASN Task Force Recommendations. Performed By: #### 4 6126 #### LAB [address] [id number] Moody Martinez M.D. [id number] Urea nitrogen [Mass/Vol] 93 mg/dL High 8-25 [facility] Comment on above: Order Comment: [facility] has implemented the eGFR calculation approach that does not have a coefficient for race that conforms to the NKF-ASN Task Force Recommendations. Performed By: #### 4 6126 #### LAB [address] [address] Moody Martinez M.D. [id number] Urea nitrogen/Creatinine [Mass ratio] 36.5 mg/mg High 10.0-20.0 [facility] Comment on above: Order Comment: [facility] has implemented the eGFR calculation approach that does not have a coefficient for race that conforms to the NKF-ASN Task Force Recommendations. Performed By: #### 4 6126 #### LAB [address] [address] Moody Martinez M.D. [id number] Albumin [Mass/Vol] 3.5 g/dL Normal 3.2-5.2 [facility] Comment on above: Order Comment: [facility] has implemented the eGFR calculation approach that does not have a coefficient for race that conforms to the NKF-ASN Task Force Recommendations. Performed By: #### 4 6126 #### LAB [address] [address] Moody Martinez M.D. [id number] ALP [Catalytic activity/Vol] 92 U/L Normal 40-150 [facility] Comment on above: Order Comment: [facility] has implemented the eGFR calculation approach that does not have a coefficient for race that conforms to the NKF-ASN Task Force Recommendations. Performed By: #### 4 6126 #### LAB [address] [address] Moody Martinez M.D. [id number] ALT [Catalytic activity/Vol] 21 U/L Normal 0-50 U/L [facility] Comment on above: Order Comment: [facility] has implemented the eGFR calculation approach that does not have a coefficient for race that conforms to the NKF-ASN Task Force Recommendations. Performed By: #### 4 6126 #### LAB [address] [address] Moody Martinez M.D. [id number] Anion gap [Moles/Vol] 20 mmol/L Normal 10-20 [facility] Comment on above: Order Comment: [facility] has implemented the eGFR calculation approach that does not have a coefficient for race that conforms to the NKF-ASN Task Force Recommendations. Performed By: #### 4 6126 #### LAB [address] [address] Moody Martinez M.D. [id number] AST [Catalytic activity/Vol] 14 U/L Normal 0-50 U/L [facility] Comment on above: Order Comment: [facility] has implemented the eGFR calculation approach that does not have a coefficient for race that conforms to the NKF-ASN Task Force Recommendations. Performed By: #### 4 6126 #### LAB [address] [address] Moody Martinez M.D. [id number] Bilirubin [Mass/Vol] 0.3 mg/dL Normal 0.0-1.3 [facility] Comment on above: Order Comment: [facility] has implemented the eGFR calculation approach that does not have a coefficient for race that conforms to the NKF-ASN Task Force Recommendations. Performed By: #### 4 6126 #### LAB [address] [address] Moody Martinez M.D. [id number] Calcium [Mass/Vol] 8.7 mg/dL Normal 8.4-10.2 [facility] Comment on above: Order Comment: [facility] has implemented the eGFR calculation approach that does not have a coefficient for race that conforms to the NKF-ASN Task Force Recommendations. Performed By: #### 4 6126 #### LAB [address] [address] Moody Martinez M.D. [id number] Chloride [Moles/Vol] 99 mmol/L Normal 98-108 [facility] Comment on above: Order Comment: [facility] has implemented the eGFR calculation approach that does not have a coefficient for race that conforms to the NKF-ASN Task Force Recommendations. Performed By: #### 4 6126 #### LAB [address] [place], [place] [address] Moody Martinez M.D. [id number] Creatinine [Mass/Vol] 2.60 mg/dL High 0.80-1.30 [facility] Comment on above: Order Comment: [facility] has implemented the eGFR calculation approach that does not have a coefficient for race that conforms to the NKF-ASN Task Force Recommendations. Performed By: #### 4 6126 #### LAB [address] [address] Moody Martinez M.D. [id number] EGFR 24 mL/min/1.73 m2 Low >=60 [facility] Comment on above: Order Comment: [facility] has implemented the eGFR calculation approach that does not have a coefficient for race that conforms to the NKF-ASN Task Force Recommendations. Result Comment: Albin mated GFR was calculated using the 2020 CKD-EPI creatinine equation. Performed By: #### 4 6126 #### LAB [address] [address] Moody Martinez M.D. [id number] Glucose [Mass/Vol] 467 mg/dL Off scale high 65-99 [facility] Comment on above: Order Comment: [facility] [facility] has implemented the eGFR calculation approach that does not have a coefficient for race that conforms to the NKF-ASN Task Force Recommendations. Performed By: #### 4 6126 #### LAB [address] [address] Moody Martinez M.D. [id number] HCO3 (Bld) [Moles/Vol] 17 mmol/L Low 21-32 [facility] Comment on above: Order Comment: [facility] has implemented the eGFR calculation approach that does not have a coefficient for race that conforms to the NKF-ASN Task Force Recommendations. Performed By: #### 4 6126 #### LAB [address] [address] Moody Martinez M.D. [id number] Potassium [Moles/Vol] 6.3 mmol/L Off scale high 3.5-5.1 [facility] Comment on above: Order Comment: [facility] has implemented the eGFR calculation approach that does not have a coefficient for race that conforms to the NKF-ASN Task Force Recommendations. Performed By: #### 4 6126 #### LAB [address] [address] Moody Martinez M.D. [id number] Protein [Mass/Vol] 5.6 g/dL Low 6.0-8.0 [facility] Comment on above: Order Comment: [facility] has implemented the eGFR calculation approach that does not have a coefficient for race that conforms to the NKF-ASN Task Force Recommendations. Performed By: #### 4 6126 #### LAB [address] [address] Moody Martinez M.D. [id number] Sodium [Moles/Vol] 130 mmol/L Low 135-145 [facility] Comment on above: Order Comment: [facility] has implemented the eGFR calculation approach that does not have a coefficient for race that conforms to the NKF-ASN Task Force Recommendations. Performed By: #### 4 6126 #### LAB [address] [address] Moody Martinez M.D. [id number] Urea nitrogen [Mass/Vol] 92 mg/dL High 8-25 [facility] Comment on above: Order Comment: [facility] has implemented the eGFR calculation approach that does not have a coefficient for race that conforms to the NKF-ASN Task Force Recommendations. Performed By: #### 4 6126 ####[facility] LAB [address] [address] Moody Martinez M.D. [id number] Urea nitrogen/Creatinine [Mass ratio] 35.4 mg/mg High 10.0-20.0 [facility] Comment on above: Order Comment: [facility] has implemented the eGFR calculation approach that does not have a coefficient for race that conforms to the NKF-ASN Task Force Recommendations. Performed By: #### 4 6126 ####[facility] LAB [address] [employer] [place], [place] [address] Moody Martinez M.D. [id number] CORONARY ANGIOGRAPHYon 10-27 CORONARY ANGIOGRAPHY This is [...] significant gradient across the aortic valve. Normal [facility] CT CHEST WITHOUT CONTRASTon 10-27-2024 CT CHEST [...] the subcutaneous tissues of the chest wall. Incont Workstation ID: [id number] Dictated by: KAHLIL VARGHESE on WedOct 27, 2024 1:25:27 PM EST Transcribed by: WARREN PRITCHARD on WedOct 27, 2024 1:31:49 PM EST Finalized by: KAHLIL VARGHESE on WedOct 27, 2024 3:01:00 PM EST Normal [facility] Comment on above: Order Comment: Injur y/Trauma [...] the subcutaneous tissues of the chest wall. Incont Workstation ID: [id number] [facility] EXAMINATION: CT CHEST WITHOUT CONTRAST [...] STRUCTURES: No aggressive bone lesions. Intact sternum. [employer] Kahlil Tyler, DO - 10/27/2024 EXAMINATION: CT [...] the chest wall. JAR/pji Workstation ID: [id number] [facility] Radiology Study observation (narrative) [facility] Cardiac Catheterizationon Impression: Multivessel complex calcified obstructive [...] no significant gradient across the aortic valve. ApoVax CV [facility] Citrated TEG (Cardiac) with HeparinaseOrdered By: Burton Zendejas on 10-27-2024 (CFF-FLEV) Cit. Func.Fib.Estimated Func.Fibrinogen Level 381.4 mg/dL 278.0 - 581.0 mg/dL [facility] Clot angle TEG (Bld) [Angle] 73.2 deg 63.0 - 78.0 deg [facility] Clot formation TEG (Bld) [Time] 1.3 min 0.8 - 2.1 min [facility] Clotting time after addition of heparinase TEG (Bld) 7.6 min 4.3 - 8.3 min [facility] Clotting time.intrinsic coagulation system activated Rotational TEG (Bld) 16.4 min High 4.6 - 9.1 min [facility] Interpretation and review of laboratory results Abnormal [facility] Maximum clot firmness TEG (Bld) [Length] 50.9 mm Low 52.0 - 69.0 mm [facility] Maximum clot firmness TEG (Bld) [Length] 20.9 mm 15.0 - 32.0 mm [facility] Maximum clot firmness.extrinsic coagulation system activated Rotational TEG (Bld) [Length] 62.3 mm 52.0 - 70.0 mm [facility] Comprehensive metabolic 2000 panelOrdered By: Ya Izaguirre on 10-27-2024 Albumin [Mass/Vol] 3.4 g/dL 3.2 - 5.2 g/dL [facility] ALP [Catalytic activity/Vol] 86 U/L 40 - 150 U/L [facility] ALT [Catalytic activity/Vol] 13 U/L 0-50 U/L [facility] Anion gap [Moles/Vol] 20 mmol/L 10 - 20 mmol/L [facility] AST [Catalytic activity/Vol] 12 U/L 0-50 U/L [facility] Bilirubin [Mass/Vol] 0.3 mg/dL 0.0 - 1 .3 mg/dL [facility] Calcium [Mass/Vol] 8.4 mg/dL 8.4 - 10. 2 mg/dL [facility] Chloride [Moles/Vol] 99 mmol/L 98 - 10 8 mmol/L [facility] Creatinine [Mass/Vol] 2.55 mg/dL High 0.80 - 1.30 mg/dL [facility] GFR/1.73 sq M.predicted CKD-EPI (S/P/Bld) [Vol rate/Area] 25 Low - PINF [facility] Comment on above: Estimated GFR was ca lculated using the 2020 CKD-EPI creatinine equation. Glucose [Mass/Vol] 564 mg/dL Critically high 65 - 99 mg/d L [facility] HCO3 [Moles/Vol] 15 mmol/L Low 21 - 32 mmol/L [facility] Potassium [Moles/Vol] 5.9 mmol/L High 3.5 - 5.1 mmol/L [facility] Protein [Mass/Vol] 5.8 g/dL Low 6.0 - 8.0 g/dL [facility] Sodium [Moles/Vol] 128 mmol/L Low 135 - 145 mmol/L [facility] Urea nitrogen [Mass/Vol] 93 mg/dL High 8 - 25 mg/dL [facility] Urea nitrogen/Creatinine [Mass ratio] 36.5 mg/mg High 10.0 - 20.0 [facility] has implemented the eGFR calculation approach that does not have a coefficient for race that conforms to the NKF-ASN Task Force Recommendations. [facility] Comprehensive metabolic 1999 panelOrdered By: Rosalia March on 10-27-2024 Albumin [Mass/Vol] 3.5 g/dL 3.2 - 5.2 g/dL [facility] ALP [Catalytic activity/Vol] 92 U/L 40 - 150 U/L [facility] ALT [Catalytic activity/Vol] 21 U/L 0-50 U/L [facility] Anion gap [Moles/Vol] 20 mmol/L 10 - 20 mmol/L [facility] AST [Catalytic activity/Vol] 14 U/L 0-50 U/L [facility] Bilirubin [Mass/Vol] 0.3 mg/dL 0.0 - 1 .3 mg/dL [facility] Calcium [Mass/Vol] 8.7 mg/dL 8.4 - 10. 2 mg/dL [facility] Chloride [Moles/Vol] 99 mmol/L 98 - 10 8 mmol/L [facility] Creatinine [Mass/Vol] 2.6 mg/dL High 0.80 - 1.30 mg/dL [facility] GFR/1.73 sq M.predicted CKD-EPI (S/P/Bld) [Vol rate/Area] 24 Low - PINF [facility] Comment on above: Estimated GFR was ca lculated using the 2020 CKD-EPI creatinine equation. Glucose [Mass/Vol] 467 mg/dL Critically high 65 - 99 mg/d L [facility] HCO3 [Moles/Vol] 17 mmol/L Low 21 - 32 mmol/L [facility] Interpretation and review of laboratory results Abnormal [facility] Potassium [Moles/Vol] 6.3 mmol/L Critically high 3.5 - 5.1 mmol/L [facility] Protein [Mass/Vol] 5.6 g/dL Low 6.0 - 8.0 g/dL [facility] Sodium [Moles/Vol] 130 mmol/L Low 135 - 145 mmol/L [facility] Urea nitrogen [Mass/Vol] 92 mg/dL High 8 - 25 mg/dL [facility] Urea nitrogen/Creatinine [Mass ratio] 35.4 mg/mg High 10.0 - 20.0 [facility] has implemented the eGFR calculation approach that does not have a coefficient for race that conforms to the NKF-ASN Task Force Recommendations. 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 Normal LV [...] Factors Hypertension: Yes Dyslipidemia: Yes Myocardial Infarction ([place]): No Congestive Heart Failure (CHF): Hx CHF [...] mmHg MV VTI 56 cm MV Decel [place] 850 cm/s2 MV PHT 90 ms MV [...] Average 7. (more content not included)... Normal [facility] Echo completeOrdered By: Fauzia Garay on 10-27-2024 Aortic valve area 3.[address] 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 Normal LV [...] Factors Hypertension: Yes Dyslipidemia: Yes Myocardial Infarction ([place]): No Congestive Heart Failure (CHF): Hx CHF [...] mmHg MV VTI 56 cm MV Decel [place] 850 cm/s2 MV PHT 90 ms MV [...] Velocity 6.3 cm/ (more content not included)... [facility] Glucose (Bld) [Mass/Vol]on 12-28-2023 Glucose [Mass/Vol] mg/dL Critically high 65 - 99 mg/d L [facility] Interpretation and review of laboratory results Abnormal [facility] Critical result acte d upon time of test. Test performed at bedside. [facility] Glucose [Mass/Vol] mg/dL Critically high 65 - 99 mg/d L [facility] Interpretation and review of laboratory results Abnormal [facility] [facility] result acte d upon time of test. Test performed at bedside. [facility] Glucose [Mass/Vol] 369 mg/dL High 65 - 99 mg/dL [facility] Interpretation and review of laboratory results Abnormal [facility] Glucose [Mass/Vol] 381 mg/dL High 65 - 99 mg/dL [facility] Interpretation and review of laboratory results Abnormal [facility] Glucose [Mass/Vol] 385 mg/dL High 65 - 99 mg/dL [facility] Interpretation and review of laboratory results Abnormal [facility] Glucose [Mass/Vol] 498 mg/dL Critically high 65 - 99 mg/d L [facility] Interpretation and review of laboratory results Abnormal [facility] Critical result acte d upon time of test. Test performed at bedside. [facility] Glucose [Mass/Vol] 279 mg/dL High 65 - 99 mg/dL [facility] Interpretation and review of laboratory results Abnormal [facility] HEMOGLOBIN A1Con 10-27-2024 Glucose [Mass/Vol] 237 mg/dL High 74-114 [facility] Comment on above: Performed By: #### 4 8202 ####[facility] [address] [place], [place] [address] Moody Martinez M.D. [id number] HbA1c (Bld) [Mass fraction] 9.9 % High 4.2-5.6 [facility] Comment on above: Performed By: #### 4 8202 ####[facility] [address] [place], [place] [address] Moody Martinez M.D. [id number] Glucose [Mass/Vol] 232 mg/dL High 74-114 [facility] Comment on above: Performed By: #### 4 8202 #### LAB [address] [place], [place] [address] Moody Martinez M.D. [id number] HbA1c (Bld) [Mass fraction] 9.7 % High 4.2-5.6 [facility] Comment on above: Performed By: #### 4 8202 #### LAB [address] [place] [address] Moody Martinez M.D. [id number] HbA1c (Bld) [Mass fraction]o n 10-27-2024 Average glucose Estimated from glycated hemoglobin (Bld) [Mass/Vol] 232 mg/dL High 74 - 114 mg/dL [facility] Interpretation and review of laboratory results Abnormal [facility] Hemoglobin A1con 10-27-2024 HbA1c (Bld) [Mass fraction] 9.7 % High 4.2 - 5.6 % [facility] INR Coag (PPP) [Relative concha e]on 10-27-2024 Interpretation and review of laboratory results Normal [facility] PT Coag (PPP) [Time] 14.3 s [facility] During the induction phase of oral anticoagulation, the INR may not reflect the anticoagulation status of the patient. Therapeutic ranges for INR's are: Most clinical situations: INR 2.0-3.0 Mechanical Prosthetic Valve: INR 2.5-3.5 Critical: INR >5.0 [facility] LACTIC ACID, PLASMAon 2023 LACTIC ACID, PLASMA 1.6 mmol/L Normal 0.6-2.0 [facility] Comment on above: Performed By: #### 4 6932 #### LAB [address] [place] [address] Moody Martinez M.D. [id number] LIPASEon 10-27-2024 Lipase [Catalytic activity/Vol] 56 U/L Normal 15-65 [facility] Comment on above: Performed By: #### 4 6086 #### LAB [address] [place] [address] Moody Martinez M.D. [id number] Lactate [Moles/Vol]on 2023 Interpretation and review of laboratory results Normal [facility] Lactic Acid, Plasmaon 2023 Lactate [Moles/Vol] 1.6 mmol/L 0.6 - 2. 0 mmol/L [facility] Lipaseon 10-27-2024 Lipase [Catalytic activity/Vol] 56 U/L 15 - 65 U/L [facility] MAGNESIUM LEVELon 10-27-2024 Magnesium [Mass/Vol] 2.6 mg/dL High 1.6-2.4 [facility] Comment on above: Performed By: #### 4 6109 ####[facility] [address] [place], [place] [address] Moody Martinez M.D. [id number] Magnesium [Mass/Vol] 2.5 mg/dL High 1.6-2.4 [facility] Comment on above: Performed By: #### 4 6109 #### LAB [address] [place] [address] Moody Martinez M.D. [id number] Magnesium Levelon 10-27-2024 Magnesium [Mass/Vol] 2.5 mg/dL High 1.6 - 2 .4 mg/dL [facility] No Panel InformationOrdered By: Ya Izaguirre on 10-27-2024 Interpretation and review of laboratory results Abnormal [facility] No Panel Informationon 10-27 Interpretation and review of laboratory results Normal [facility] PHOSPHORUSon 10-27-2024 Phosphate [Mass/Vol] 4.4 mg/dL High 2.3-3.7 [facility] Comment on above: Performed By: #### 4 6299 ####[facility] LAB [address] [place] [address] Moody Martinez M.D. [id number] Phosphate [Mass/Vol] 5.2 mg/dL High 2.3-3.7 [facility] Comment on above: Performed By: #### 4 4014 #### LAB [address] [place], [place] [address] Moody Martinez M.D. [id number] POC ARTERIAL BLOOD GAS PANEL -[facility] 10-27-2024 [id number] 19.6 mm Hg Normal [facility] Comment on above: Performed By: #### 4 8716 ####[facility] LAB [address] [place] [address] Moody Martinez M.D. [id number] BASE EXCESS, ARTERIAL -7.5 Low -2.0-2.0 [facility] Comment on above: Performed By: #### 4 8716 ####[facility] LAB [address] [place] [address] Moody Martinez M.D. [id number] FIO2 21 Normal [facility] Comment on above: Performed By: #### 4 8716 ####[facility] LAB [address] [place] [address] Moody Martinez M.D. [id number] HCO3 (Bld) [Moles/Vol] 17.5 mmol/L Low 22.0-26.0 [facility] Comment on above: Performed By: #### 4 8716 ####[facility] [address] [place] [address] Moody Martinez M.D. [id number] Hematocrit (Bld) [Volume fraction] 30.0 % Low 41.0-53.0 [facility] Comment on above: Performed By: #### 4 8716 ####[facility] [address] [place] [address] Moody Martinez M.D. [id number] Hemoglobin (Bld) [Mass/Vol] 9.8 g/dL Low 13.5-17.5 [facility] Comment on above: Performed By: #### 4 8716 ####[facility] LAB [address] [place] [address] Moody Martinez M.D. [id number] Oxygen saturation in Blood 97.3 % Normal 92.0-99.0 [facility] Comment on above: Performed By: #### 4 8716 ####[facility] LAB [address] [place] [address] Moody Martinez M.D. [id number] PCO2 ARTERIAL 32.9 mm Hg Low 35.0-45.0 [facility] Comment on above: Performed By: #### 4 8716 ####[facility] [address] [place], [place] [address] Moody Martinez M.D. [id number] PH ARTERIAL 7.33 Low 7.35-7.45 [facility] Comment on above: Performed By: #### 4 8716 ####[facility] [address] [place], [place] [address] Moody Martinez M.D. [id number] PO2 ARTERIAL 85 mm Hg Normal 75-85 [facility] Comment on above: Performed By: #### 4 8716 ####[facility] LAB [address] [place] [id number] Moody Martinez M.D. [id number] SPECIMEN SOURCE RADIANCE Radial, left Normal [facility] Comment on above: Performed By: #### 4 8716 #### LAB [address] [place] [id number] Moody Martinez M.D. [id number] POC Arterial Blood Gas Panel -[facility] 10-27-2024 Alveolar-arterial oxygen Partial pressure difference 19.6 mm Hg [facility] Base excess Calc (Bld) [Moles/Vol] -7.5000 mmol/L Low -2.0 - 2.0 [facility] CO2 (Bld) [Partial pressure] 32.9 mm[Hg] Low [facility] Hematocrit (BldA) [Volume fraction] 30 % Low 41.0 - 53.0 % [facility] Inhaled oxygen concentration 21 % [facility] Interpretation and review of laboratory results Abnormal [facility] Oxygen (Bld) [Partial pressure] 85 mm[Hg] [facility] pH (Bld) 7.33 [pH] Low 7.35 - 7.45 [facility] Specimen source Nom (Unsp spec) Radial, left [facility] POC GLUCOSE - [facility] 024 Glucose [Mass/Vol] 443 mg/dL Off scale high 65-99 [facility] Comment on above: Order Comment: Criti christian result acted upon time of test. Test performed at bedside. Performed By: #### 4 6932 ####MH LAB [address] [place] [id number] Moody Martinez M.D. [id number] POC GLUCOSE > Off scale high 65-99 [facility] Comment on above: Order Comment: Criti christian result acted upon time of test. Test performed at bedside. Performed By: #### 4 6932 #### LAB [address] [place] [address] Moody Martinez M.D. [id number] POC GLUCOSE > Off scale [address] Comment on above: Order Comment: Criti christian result acted upon time of test. Test performed at bedside. Performed By: #### 4 6932 #### LAB [address] [place] [address] Moody Martinez M.D. [id number] POC GLUCOSE > Off scale [address] Comment on above: Order Comment: Criti christian result acted upon time of test. Test performed at bedside. Performed By: #### 4 6932 #### LAB [address] [place] [address] Moody Martinez M.D. [id number] Glucose [Mass/Vol] 369 mg/dL [address] Comment on above: Performed By: #### 4 6932 #### LAB [address] [place] [address] Moody Martinez M.D. [id number] Glucose [Mass/Vol] 381 mg/dL [address] Comment on above: Performed By: #### 4 6932 #### LAB [address] [place] [address] Moody Martinez M.D. [id number] Glucose [Mass/Vol] 385 mg/dL [address] Comment on above: Performed By: #### 4 6960 #### LAB [address] [place] [address] Moody Martinez M.D. [id number] Glucose [Mass/Vol] 498 mg/dL Off scale [address] Comment on above: Order Comment: Criti christian result acted upon time of test. Test performed at bedside. Performed By: #### 4 6732 #### LAB [address] [place] [address] Moody Martinez M.D. [id number] Glucose [Mass/Vol] 279 mg/dL High 65-99 [facility] Comment on above: Performed By: #### L [id number] #### LAB [address] [place] [address] Moody Martinez M.D. [id number] POTASSIUM LEVELon 10-27-2024 Potassium [Moles/Vol] 3.4 mmol/L Low 3.5-5.1 [facility] Comment on above: Performed By: #### 4 6351 #### LAB [address] [place] [address] Moody Martinez M.D. [id number] PREALBUMINon 10-27-2024 Prealbumin [Mass/Vol] 15.9 mg/dL Low 20.0-40.0 [facility] Comment on above: Performed By: #### 4 4014 #### LAB [address] [place] [address] Moody Martinez M.D. [id number] PT/INRon 10-27-2024 INR Coag (PPP) [Relative time] 1.1 {INR} 0.8 - 1.1 [facility] INR Coag (PPP) [Relative time] 1.1 {INR} Normal 0.8-1.1 [facility] Comment on above: Order Comment: Janet the induction phase of oral anticoagulation, the INR may not reflect the anticoagulation status of the patient. Therapeutic ranges for INR's are:Most clinical situations: INR 2.0-3.0Mechanical Prosthetic Valve: INR 2.5-3.5Critical: INR >5.0 Performed By: #### 4 6932 #### LAB [address] [place] [address] Moody Martinez M.D. [id number] PT Coag (PPP) [Time] 14.3 s Normal 11.8-14.3 [facility] Comment on above: Order Comment: Janet the induction phase of oral anticoagulation, the INR may not reflect the anticoagulation status of the patient. Therapeutic ranges for INR's are:Most clinical situations: INR 2.0-3.0Mechanical Prosthetic Valve: INR 2.5-3.5Critical: INR >5.0 Performed By: #### 4 6932 #### [facility] [address] [place], [place] [address] Moody Martinez M.D. [id number] Phosphoruson 10-27-2024 Phosphate [Mass/Vol] 5.2 mg/dL High 2.3 - 3 .7 mg/dL [facility] Potassium Levelon 10-27-2024 Potassium [Moles/Vol] 3.4 mmol/L Low 3.5 - 5.1 mmol/L [facility] Potassium [Moles/Vol]on 10-02 Interpretation and review of laboratory results Abnormal [facility] Prealbuminon 10-27-2024 Prealbumin [Mass/Vol] 15.9 mg/dL Low 20.0 - 40.0 mg/dL [facility] Prealbumin [Mass/Vol]on 10-02 Interpretation and review of laboratory results Abnormal [facility] Segmental Doppler Lower Extr emity Arterialon 10-27-2024 Patient Info Name: ENOC FERNANDES Age: 78 years : 1945 Gender: Male Exam Date: 10/27/2024 9:50 AM Patient Status: Outpatient Fish Tender: Ya Jacob Referring Physician: ZOILA SALAZAR; Indications I73.9 - Peripheral vascular disease, unspecified Procedure Description 40140 Limited bilateral noninvasive physiologic studies of upper [...] JO-ANN Nguyen DO on 10/27/2024 01:14 PM [facility] Flo Abdi III, DO - 10/27/2024 Patient Info Name: ENOC FERNANDES Age: 78 years : 1945 Gender: Male Exam Date: 10/27/2024 9:50 AM Patient Status: Outpatient Fish Tender: Ya Jacob Referring Physician: ZOILA SALAZAR; Indications I73.9 - Peripheral vascular disease, unspecified Procedure Description 02999 Limited bilateral noninvasive physiologic studies of upper [...] JO-ANN Nguyen DO on 10/27/2024 01:14 PM [facility] T4, FREEon 10-27-2024 Free T4 [Mass/Vol] 1.3 ng/dL Normal 0.7-1.7 [facility] Comment on above: Performed By: #### 4 6567 ####[facility] [address] [place], [place] [address] Moody Martinez M.D. [id number] T4, Freeon 10-27-2024 Free T4 [Mass/Vol] 1.3 ng/dL 0.7 - 1.7 ng/dL [facility] TEG PLATELET MAPPING ([facility])on 10-27-2024 (AA-%AGGREGATION) AA PERCENT AGGREGATION 12.1 % Low 89.0-100.0 [facility] Comment on above: Performed By: #### L [id number] #### LAB [address] [place] [address] Moody Martinez M.D. [id number] (AA-%INHIBITION) AA PERCENT INHIBITION 87.9 % High 0.0-11.0 [facility] Comment on above: Performed By: #### L [id number] #### LAB [address] [place] [address] Moody Martinez M.D. [id number] (AA-MA) AA MAXIMUM AMPLITUDE 14.7 mm Low 51.0-71.0 [facility] Comment on above: Performed By: #### L [id number] #### LAB [address] [place] [address] Moody Martinez M.D. [id number] (ACTF-MA) ACTIVATOR F MAXIMUM AMPLITUDE 7.8 mm Normal 2.0-19.0 [facility] Comment on above: Performed By: #### L [id number] #### LAB [address] [place] [address] Moody Martinez M.D. [id number] (ADP-%AGGREGATION) ADP PERCENT AGGREGATION 61.2 % Low 83.0-100.0 [facility] Comment on above: Performed By: #### L [id number] #### LAB [address] [place] [address] Moody Martinez M.D. [id number] (ADP-%INHIBITION) ADP PERCENT INHIBITION 38.8 % High 0.0-17.0 [facility] Comment on above: Performed By: #### L [id number] #### LAB [address] [place] [address] Moody Martinez M.D. [id number] (ADP-MA) ADP MAXIMUM AMPLITUDE 42.7 mm Low 45.0-69.0 [facility] Comment on above: Performed By: #### L [id number] ####[facility] [address] [place], [place] [address] Moody Martinez M.D. [id number] ([facility]) KAOLIN WITH HEPARINASE MAXIMUM AMPLITUDE 64.8 mm Normal 53.0-68.0 [facility] Comment on above: Performed By: #### L [id number] #### LAB [address] [place], [place] [address] Moody Martinez M.D. [id number] TEG Platelet Mapping (Cardia c)on 10-27-2024 (AA-%Aggregation) AA Percent Aggregation 12.1 % Low 89.0 - 100.0 % [facility] (AA-%Inhibition) AA Percent Inhibition 87.9 % High 0.0 - 11.0 % [facility] (ADP-% Aggregation) ADP Percent Aggregation 61.2 % Low 83.0 - 100.0 % [facility] (ADP-%Inhibition) ADP PERCENT INHIBITION 38.8 % High 0.0 - 17.0 % [facility] Interpretation and review of laboratory results Abnormal [facility] Maximum amplitude AA induced Resonance TEG (Bld) [Length] 14.7 mm Low 51.0 - 71.0 mm [facility] Maximum amplitude activator F induced Resonance TEG (Bld) [Length] 7.8 mm 2.0 - 19.0 mm [facility] Maximum amplitude ADP induced Resonance TEG (Bld) [Length] 42.7 mm Low 45.0 - 69.0 mm [facility] Maximum amplitude kaolin induced after addition of heparinase Resonance TEG (Bld) [Length] 64.8 mm 53.0 - 68.0 mm [facility] TSHon 10-27-2024 TSH Qn 0.48 m[IU]/L Normal 0.27-4.20 [facility] Comment on above: Performed By: #### 4 6932 #### LAB [address] [place], [place] [address] Moody Martinez M.D. 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 [id number] URINE AEROBIC CULTUREon 10-02 URINE AEROBIC CULTURE URINE CULTURE No Growth (<1,000 CFU/mL) Normal [facility] Comment on above: Order Comment: If PO SITIVE, send for sensitivities per cardiac surgeon Performed By: #### 4 4053 ####[facility] [place] [address] Jose Cisse M.D. [id number] US DOPPLER CAROTIDon 024 US DOPPLER CAROTID Patient Info Name: ENOC FERNANDES Age: 78 years : 1945 Gender: Male Exam Date: 10/27/2024 10:32 AM Patient Status: Outpatient Fish Tender: Lori Fagan RDMS (), S Referring Physician: MARIE Arriaga; Indications Z01.810 - Encounter for preprocedural cardiovascular examination I65.23 - Occlusion and stenosis of bilateral carotid arteries Procedure Description 40907 Duplex examination using B-mode, color and spectral [...] Results c (more content not included)... Normal [facility] Comment on above: Order Comment: Dr. Sudha Parker to read US DOPPLER SEGMENTAL ARTERIA L LEGS BILATERALon 10-27-2024 US DOPPLER SEGMENTAL ARTERIAL LEGS BILATERAL Patient Info Name: ENOC FERNANDES Age: 78 years : 1945 Gender: Male Exam Date: 10/27/2024 9:50 AM Patient Status: Outpatient Fish Tender: Ya Jacob Referring Physician: ZOILA SALAZAR; Indications I73.9 - Peripheral vascular disease, unspecified Procedure Description 85638 Limited bilateral noninvasive physiologic studies of upper [...] JO-ANN Nguyen DO on 10/27/2024 01:14 PM [facility] US RADIAL ARTERY MAPPING KARIN ATERALon 10-27-2024 US RADIAL ARTERY MAPPING BILATERAL Patient Info Name: ENOC FERNANDES Age: 78 years : 1945 Gender: Male Exam Date: 10/27/2024 11:23 AM Patient Status: Outpatient Fish Tender: Lori Fagan RDMS (AB), RVS Referring Physician: MARIE Arriaga; Indications - possible radial artery harvest Z01.810 - Encounter for preprocedural cardiovascular examination Procedure Description 40280 Duplex scan of upper extremity arteries or [...] Kristy Parker MD on 10/27/2024 11:50 AM [facility] Radial Artery Mapping Karin bone 10-27-2024 Patient Info Name: ENOC PERRYRE Age: 78 years : 1945 Gender: Male Exam Date: 10/27/2024 11:23 AM Patient Status: Outpatient Fish Tender: Lori Fagan RDMS (AB), RVS Referring Physician: MARIE Arriaga; Indications - possible radial artery harvest Z01.810 - Encounter for preprocedural cardiovascular examination Procedure Description 90145 Duplex scan of upper extremity arteries or [...] Kristy Parker MD on 10/27/2024 11:50 AM [facility] , Kristy Gardiner MD - 10/27/2024 Patient Info Name: ENOC FERNANDES Age: 78 years : 1945 Gender: Male Exam Date: 10/27/2024 11:23 AM Patient Status: Outpatient Fish Tender: Lori Fagan RDMS (AB), RVS Referring Physician: MARIE Arriaga; Indications - possible radial artery harvest Z01.810 - Encounter for preprocedural cardiovascular examination Procedure Description 33026 Duplex scan of upper extremity arteries or [...] Kristy Parker MD on 10/27/2024 11:50 AM [facility] US SAPHENOUS VEIN MAPon 12-2 US SAPHENOUS VEIN MAP Patient Info Name: ENOC FERNANDES Age: 78 years : 1945 Gender: Male Exam Date: 10/27/2024 11:13 AM Patient Status: Outpatient Fish Tender: Lori Fagan RDMS (AB), RVS Referring Physician: MARIE Arriaga; Indications - GSV harvest Z01.810 - Encounter for preprocedural cardiovascular examination Procedure Description 99085 Duplex examination using B-mode, color and spectral [...] Kristy Parker MD on 10/27/2024 11:57 AM [facility] Ultrasound Saphenous vein ma destini 10-27-2024 Patient Info Name: ENOC FERNANDES Age: 78 years : 1945 Gender: Male Exam Date: 10/27/2024 11:13 AM Patient Status: Outpatient Fish Tender: Lori Fagan RDMS (AB), RVS Referring Physician: MARIE Arriaga; Indications - GSV harvest Z01.810 - Encounter for preprocedural cardiovascular examination Procedure Description 44319 Duplex examination using B-mode, color and spectral [...] Date: 10/27/2024 11:13 AM Patient Status: Outpatient Fish Tender: Lori Fagan RDMS (AB), RVS Referring Physician: MARIE Arriaga; Indications - GSV harvest Z01.810 - Encounter for preprocedural cardiovascular examination Procedure Description 26034 Duplex examination using B-mode, color and spectral [...] Kristy Parker MD on 10/27/2024 11:57 AM [facility] Ultrasound doppler carotidon 10-27-2024 Patient Info Name: ENOC FERNANDES Age: 78 years : 1945 Gender: Male Exam Date: 10/27/2024 10:32 AM Patient Status: Outpatient Fish Tender: Lori Fagan RDMS (AB), RVS Referring Physician: MARIE Arriaga; Indications Z01.810 - Encounter for preprocedural cardiovascular examination I65.23 - Occlusion and stenosis of bilateral carotid arteries Procedure Description 62489 Duplex examination using B-mode, color and spectral [...] Date: 10/27/2024 10:32 AM Patient Status: Outpatient Fish Tender: Lori Fagan RDMS (AB), RVS Referring Physician: MARIE Arriaga; Indications Z01.810 - Encounter for preprocedural cardiovascular examination I65.23 - Occlusion and stenosis of bilateral carotid arteries Procedure Description 28791 Duplex examination using B-mode, color and spectral [...] Patient has a (more content not included)... [facility] Urinalysison 10-27-2024 Bacteria Auto Ql (U) Rare Abnormal None Seen /hpf [facility] Bilirubin Ql (U) Negative Negative [facility] th Clarity Refractometry automated (U) Clear Clear [facility] Color (U) Colorless Colorless, Yellow [facility] Epithelial cells.squamous Auto (Urine sed) [#/Area] [facility] Glucose Auto test strip (U) [Mass/Vol] 150 mg/dL Abnormal Negative, >=1000 [facility] Hemoglobin Auto test strip Ql (U) Negative Negative [facility] Hyaline casts Auto (Urine sed) [#/Area] 0-2 [facility] Interpretation and review of laboratory results Abnormal [facility] Ketones (U) [Mass/Vol] Negative Negative mg/d L [facility] Leukocyte esterase Auto test strip Ql (U) Negative Negative [facility] h Mucus Auto (Urine sed) [#/Area] Rare None Seen, Rare /lpf [facility] Nitrite Auto test strip Ql (U) Negative Negative [facility] pH (U) 5 [pH] 5.0 - 7.0 [facility] Protein (U) [Mass/Vol] Negative Negative mg/d L [facility] RBC Auto (Urine sed) [#/Area] 1 [facility] Specific gravity (U) [Rel density] 1.017 1.005 - 1.025 [facility] Urobilinogen (U) [Mass/Vol] mg/dL NINF - 2.0 mg/dL [facility] WBC Auto (Urine sed) [#/Area] 1 [facility] Microscopic examination is performed on all urinalysis samples and only positive findings are reported. The test for blood on the chemical analytic portion of urinalysis may also be positive due to hemoglobinuria and myoglobinuria and if red blood cells are present they are quantified by microscopic examination. [facility] XR CHEST AP/PA AND LATon XR CHEST [...] effusion. IMPRESSION: Mild bilateral lower lung atelectasis. [employer] Workstation ID: [id number] Dictated by: KAHLIL VARGHESE on WedOct 27, 2024 1:12:55 PM EST Transcribed by: DASIA ENGLAND on WedOct 27, 2024 1:21:29 PM EST Finalized by: KAHLIL VARGHESE on WedOct 27, 2024 3:01:09 PM EST Normal [facility] Comment on above: Order Comment: Injur y/Trauma or Illness?:Illness/OtherHow long have you had these symptoms (acute/chronic)?:AcuteReason for exam?:pre opHistory of cancer?:.Surgeries, chemotherapy, or radiation?:cardiac catheterizationType of Exam?:InitialAdditional signs and symptoms?:. XR Chest PA and Lateral and AP lateral-decubituson 10-27-2024 Mild bilateral lower lung atelectasis. [employer] Workstation ID: [id number] GE RIS EXAMINATION: XR [...] lower lung atelectasis. JAR/trn Workstation ID: [id number] [facility] Radiology Study observation (narrative) [facility] XR Chest PA and Lateral and AP lateral-decubitusOrdered By: Kahlil Varghese on 10-27-2024 [facility] Work Phone: aPTT Coag (Bld) [Time]on Interpretation and review of laboratory results Abnormal [facility] Therapeutic range fo r APTT's is 68 - 104 seconds [facility] BASIC METABOLIC PANELon 10-01 Calcium [Mass/Vol] 8.9 mg/dL Normal 8.6-10.3 [facility] Comment on above: Order Comment: FASTI NG:UNKNOWN FASTING: UNKNOWN Performed By: #### 6 399, 17194 #### [facility] [address], [address] [place] [address] Supervisor Wrapping Room: Jadon Velez MD Chloride [Moles/Vol] 106 mmol/L Normal 98-110 [facility] Comment on above: Order Comment: FASTI NG:UNKNOWN FASTING: UNKNOWN Performed By: #### 6 399, 88127 #### [facility] [place] [address] Supervisor Wrapping Room: Jadon Velez MD CO2 [Moles/Vol] 22 mmol/L Normal 20-32 [facility] Comment on above: Order Comment: FASTI NG:UNKNOWN FASTING: UNKNOWN Performed By: #### 6 399, 50872 #### [facility] [place] [address] Supervisor Wrapping Room: Jadon Velez MD Creatinine [Mass/Vol] 2.36 mg/dL High 0.70-1.22 [facility] Comment on above: Order Comment: FASTI NG:UNKNOWN FASTING: UNKNOWN Performed By: #### 6 399, 66100 #### [facility] [place] [address] Supervisor Wrapping Room: Jadon Velez MD GFR/1.73 sq M.predicted among non-blacks MDRD (S/P/Bld) [Vol rate/Area] 27 mL/min/{1.73_m2} Low > OR = 60 [facility] Comment on above: Order Comment: FASTI NG:UNKNOWN FASTING: UNKNOWN Performed By: #### 6 399, 96953 #### [facility] [place] [address] Supervisor Wrapping Room: Jadon Velez MD Glucose [Mass/Vol] 316 mg/dL High 65-99 [facility] Comment on above: Order Comment: FASTI NG:UNKNOWN FASTING: UNKNOWN Result Comment: Fasting reference interval For someone without known diabetes, a glucose value >125 mg/dL indicates that they may have diabetes and this should be confirmed with a follow-up test. Performed By: #### 6 399, 63506 #### [facility] [address], [address] [place] [address] Supervisor Wrapping Room: Jadon Velez MD Potassium [Moles/Vol] 5.6 mmol/L High 3.5-5.3 [facility] Comment on above: Order Comment: FASTI NG:UNKNOWN FASTING: UNKNOWN Performed By: #### 6 399, 87973 #### [facility] [address], [address] [place] [address] Supervisor Wrapping Room: Jadon Velez MD Sodium [Moles/Vol] 137 mmol/L Normal 135-146 [facility] Comment on above: Order Comment: FASTI NG:UNKNOWN FASTING: UNKNOWN Performed By: #### 6 399, 93971 #### [facility] [address], [address] [place] [address] Supervisor Wrapping Room: Jadon Velez MD Urea nitrogen [Mass/Vol] 66 mg/dL High 7-25 [facility] Comment on above: Order Comment: FASTI NG:UNKNOWN FASTING: UNKNOWN Performed By: #### 6 399, 98091 #### [facility] [place] [address] Supervisor Wrapping Room: Jadon Velez MD Urea nitrogen/Creatinine [Mass ratio] 28 mg/mg High 6- [facility] Comment on above: Order Comment: FASTI NG:UNKNOWN FASTING: UNKNOWN Performed By: #### 6 399, 11891 #### [facility] [place] [address] Supervisor Wrapping Room: Jadon Velez MD CBC (INCLUDES DIFF/PLT)on Basophils (Bld) [#/Vol] 0.213 10*3/uL High 0-200 [facility] Comment on above: Performed By: #### 6 399, 58919 #### [facility] of [address], [address] [place] [address] Supervisor Wrapping Room: Jadon Velez MD Basophils/100 WBC (Bld) 2.6 % Normal [facility] Comment on above: Performed By: #### 6 399, 32684 #### [facility] of [address], [address] [place] [address] Supervisor Wrapping Room: aJdon Velez MD Eosinophils (Bld) [#/Vol] 0.5 10*3/uL Normal 15-500 [facility] Comment on above: Performed By: #### 6 399, 01014 #### [facility] of [address], [address] [place] [address] Supervisor Wrapping Room: Jadon Velez MD Eosinophils/100 WBC (Bld) 6.1 % Normal [facility] Comment on above: Performed By: #### 6 399, 22650 #### [facility] of [place] [address] Supervisor Wrapping Room: Jadon Velez MD Erythrocyte distribution width (RBC) [Ratio] 12.9 % Normal 11.0-15.0 [facility] Comment on above: Performed By: #### 6 399, 11976 #### [facility] of [place] [address] Supervisor Wrapping Room: Jadon Velez MD Hematocrit (Bld) [Volume fraction] 33.8 % Low 38.5-50.0 [facility] Comment on above: Performed By: #### 6 399, 63953 #### [facility] of [place] [address] Supervisor Wrapping Room: Jadon Velez MD Hemoglobin (Bld) [Mass/Vol] 10.9 g/dL Low 13.2-17.1 [facility] Comment on above: Performed By: #### 6 399, 59512 #### [facility] of [place] [address] Supervisor Wrapping Room: Jadon Velez MD Lymphocytes (Bld) [#/Vol] 2.28 10*3/uL Normal 850-3900 [facility] Comment on above: Performed By: #### 6 399, 72817 #### [facility] [place] [address] Supervisor Wrapping Room: Jadon Vleez MD Lymphocytes/100 WBC (Bld) 27.8 % Normal [facility] Comment on above: Performed By: #### 6 399, 41252 #### [facility] [place] [address] Supervisor Wrapping Room: Jadon Velez MD MCH (RBC) [Entitic mass] 30.9 pg Normal 27.0-33.0 [facility] Comment on above: Performed By: #### 6 399, 70290 #### [facility] [place] [address] Supervisor Wrapping Room: Jadon Velez MD MCHC (RBC) [Mass/Vol] 32.2 g/dL Normal 32.0-36.[address] [facility] Comment on above: Result Comment: For adults, a slight decrease in the calculated MCHC value (in the range of 30 to 32 g/dL) is most likely not clinically significant; however, it should be interpreted with caution in correlation with other red cell parameters and the patient's clinical condition. Performed By: #### 6 399, 12009 #### [facility] [place] [address] Supervisor Wrapping Room: Jadon Velez MD MCV (RBC) [Entitic vol] 95.8 fL Normal 80.0-100.0 [facility] Comment on above: Performed By: #### 6 399, 34698 #### [facility] [place] [address] Supervisor Wrapping Room: Jadon Velez MD Monocytes (Bld) [#/Vol] 0.631 10*3/uL Normal 200-950 [facility] Comment on above: Performed By: #### 6 399, 44340 #### [facility] [place] [address] Supervisor Wrapping Room: Jadon Velez MD Monocytes/100 WBC (Bld) 7.7 % Normal [facility] Comment on above: Performed By: #### 6 399, 36731 #### [facility] of [place] [address] Supervisor Wrapping Room: Jadon Velez MD Neutrophils (Bld) [#/Vol] 4.576 10*3/uL Normal 8009-8669 [facility] Comment on above: Performed By: #### 6 399, 62247 #### [facility] of [place] [address] Supervisor Wrapping Room: Jadon Velez MD Neutrophils/100 WBC (Bld) 55.8 % Normal [facility] Comment on above: Performed By: #### 6 399, 30778 #### [facility] [place] [address] Supervisor Wrapping Room: Jadon Velez MD Platelet mean volume (Bld) [Entitic vol] 11.5 fL Normal 7.5-12.5 [facility] Comment on above: Performed By: #### 6 399, 15156 #### [facility] [place] [address] Supervisor Wrapping Room: Jadon Velez MD Platelets (Bld) [#/Vol] 289 10*3/uL Normal 140-400 [facility] Comment on above: Performed By: #### 6 399, 72201 #### [facility] of [place] [address] Supervisor Wrapping Room: Jadon Velez MD RBC (Bld) [#/Vol] 3.53 10*6/uL Low 4.20-5.80 [facility] Comment on above: Performed By: #### 6 399, 75467 #### [facility] of [place] [address] Supervisor Wrapping Room: Jadon Velez MD WBC (Bld) [#/Vol] 8.2 10*3/uL Normal 3.8-10.8 [facility] Comment on above: Performed By: #### 6 103, 13054 #### [facility] [address], [address] [place] [address] Supervisor Wrapping Room: Jadon Velez MD Lipid Profileon 09-21-2024 Cholesterol [Mass/Vol] 148 mg/dL Normal 200 [facility] Comment on above: Result Comment: <200 mg/dL Desirable 200-240 mg/dL Borderline >240 mg/dL High Risk Performed By: #### L 501.080 #### [facility] [address] [place], [address] Cholesterol in HDL [Mass/Vol] 49 mg/dL Normal [facility] Comment on above: Result Comment: The drugs N-Acetylcysteine and Metamizole may falsely depress this assay. Reference Range HDL <40 mg/dL Low HDL Cholesterol HDL >or= 60 mg/dL High HDL Cholesterol Performed By: #### L 501.080 #### [facility] [address] [place], [address] Cholesterol in LDL [Mass/Vol] 87 mg/dL Normal 0-130 [facility] Comment on above: Performed By: #### L 501.080 #### [facility] [address] [place], [address] Cholesterol in VLDL [Mass/Vol] 12 mg/dL Normal 5-40 [facility] Comment on above: Performed By: #### L 501.080 #### [facility] [address] [place], [address] Triglyceride [Mass/Vol] 58 mg/dL Normal [facility] Comment on above: Result Comment: The drugs N-Acetylcysteine and Metamizole may falsely depress this assay. Serum Triglycerides Reference Interval Normal <150 mg/dL Borderline high 150 - 199 mg/dL High 200 - 499 mg/dL Very High > or = 500 mg/dL Performed By: #### L 501.080 #### [facility] [address] [place], [address] Basic Metabolic Profile (BMP )on 09-15-2024 BUN Normal 7-18 [facility] Comment on above: Result Comment: Canc elled via OM: Order cancelled - Patient discharged Performed By: #### L 500.2500, L100.0100 #### [facility] [address] [place], [address] BUN/CRE Normal 10-20 [facility] Comment on above: Result Comment: Canc elled via OM: Order cancelled - Patient discharged Performed By: #### L 500.2500, L100.0100 #### [facility] [address] [place], [address] CA,Total Normal 8.5-10.1 [facility] Comment on above: Result Comment: Canc elled via OM: Order cancelled - Patient discharged Performed By: #### L 500.2500, L100.0100 #### [facility] [address] [place], [address] CL Normal 98-107 [facility] Comment on above: Result Comment: Canc elled via OM: Order cancelled - Patient discharged Performed By: #### L 500.2500, L100.0100 #### [facility] [address] [place], [address] CO2 Normal 21.0-32.0 [facility] Comment on above: Result Comment: Canc elled via OM: Order cancelled - Patient discharged Performed By: #### L 500.2500, L100.0100 #### [facility] [address] [place], [address] CREAT,SERUM Normal 0.70-1.30 [facility] Comment on above: Result Comment: Canc elled via OM: Order cancelled - Patient discharged Performed By: #### L 500.2500, L100.0100 #### [facility] [address] [place], [address] EST GFR Normal >60 [facility] Comment on above: Result Comment: Canc elled via OM: Order cancelled - Patient discharged Performed By: #### L 500.2500, L100.0100 #### [facility] [address] [place], [address] EST GFR - AA Normal >60 [facility] Comment on above: Result Comment: Canc elled via OM: Order cancelled - Patient discharged Performed By: #### L 500.2500, L100.0100 #### [facility] [address] [place], [address] GAP Normal 5-15 [facility] Comment on above: Result Comment: Canc elled via OM: Order cancelled - Patient discharged Performed By: #### L 500.2500, L100.0100 #### [facility] [address] [place], [address] GLU Normal 74-106 [facility] Comment on above: Result Comment: Canc elled via OM: Order cancelled - Patient discharged Performed By: #### L 500.2500, L100.0100 #### [facility] [address] [place], [address] Potassium Normal 3.5-5.1 [facility] Comment on above: Result Comment: Canc elled via OM: Order cancelled - Patient discharged Performed By: #### L 500.2500, L100.0100 #### [facility] [address] [place], [address] Basic Metabolic Profile (BMP) Normal 136-145 [facility] Comment on above: Result Comment: Canc elled via OM: Order cancelled - Patient discharged Performed By: #### L 500.2500, L100.0100 #### [facility] [address] [place], [address] CBC W/Diff, Automatedon 11-1 Absolute Neut Normal 2.0-7.7 [facility] Comment on above: Result Comment: Canc elled via OM: Order cancelled - Patient discharged Performed By: #### L 500.2500, L100.0100 #### [facility] [address] [place], [address] HCT Normal 40-54 [facility] Comment on above: Result Comment: Canc elled via OM: Order cancelled - Patient discharged Performed By: #### L 500.2500, L100.0100 #### [facility] [address] [place], [address] HGB Normal 13.0-16.5 [facility] Comment on above: Result Comment: Canc elled via OM: Order cancelled - Patient discharged Performed By: #### L 500.2500, L100.0100 #### [facility] [address] [place], [address] MCH Normal 27.0-32.0 [facility] Comment on above: Result Comment: Canc elled via OM: Order cancelled - Patient discharged Performed By: #### L 500.2500, L100.0100 #### [facility] [address] [place], [address] MCHC Normal 32-36 [facility] Comment on above: Result Comment: Canc elled via OM: Order cancelled - Patient discharged Performed By: #### L 500.2500, L100.0100 #### [facility] [address] [place], [address] MCV Normal 80-94 [facility] Comment on above: Result Comment: Canc elled via OM: Order cancelled - Patient discharged Performed By: #### L 500.2500, L100.0100 #### [facility] [address] [place], [address] NEUT% Normal 47-70 [facility] Comment on above: Result Comment: Canc elled via OM: Order cancelled - Patient discharged Performed By: #### L 500.2500, L100.0100 #### [facility] [address] [place], [address] PLT Normal 150-450 [facility] Comment on above: Result Comment: Canc elled via OM: Order cancelled - Patient discharged Performed By: #### L 500.2500, L100.0100 #### [facility] [address] [place], [address] RBC Normal 4.6-6.2 [facility] Comment on above: Result Comment: Canc elled via OM: Order cancelled - Patient discharged Performed By: #### L 500.2500, L100.0100 #### [facility] [address] [place], [address] RDW CV Normal 11.6-14.6 [facility] Comment on above: Result Comment: Canc elled via OM: Order cancelled - Patient discharged Performed By: #### L 500.2500, L100.0100 #### [facility] [address] [place], [address] RDW SD Normal 35.1-43.9 [facility] Comment on above: Result Comment: Canc elled via OM: Order cancelled - Patient discharged Performed By: #### L 500.2500, L100.0100 #### [facility] [address] [place], [address] WBC Normal 4.4-11.0 [facility] Comment on above: Result Comment: Canc elled via OM: Order cancelled - Patient discharged Performed By: #### L 500.2500, L100.0100 #### [facility] [address] [place], [address] Basic Metabolic Profile (BMP )on 09-14-2024 BUN/CRE 21.4 RATIO High 10-20 [facility] Comment on above: Performed By: #### L 100.0100, L500.2500 #### [facility] [address] [place], [address] CA,Total 8.7 mg/dL Normal 8.5-10.1 [facility] Comment on above: Performed By: #### L 100.0100, L500.2500 #### [facility] [address] [place], [address] Chloride [Moles/Vol] 104 mmol/L Normal 98-107 [facility] Comment on above: Performed By: #### L 100.0100, L500.2500 #### [facility] [address] [place], [address] CO2 [Moles/Vol] 24.0 mmol/L Normal 21.0-32.0 [facility] Comment on above: Performed By: #### L 100.0100, L500.2500 #### [facility] [address] [place], [address] Creatinine [Mass/Vol] 1.96 mg/dL High 0.70-1.30 [facility] Comment on above: Result Comment: The validity of the calculated GFR GFRAA in patients over 70 years has not been determined. Clinical correlation is essential. Performed By: #### L 100.0100, L500.2500 #### [facility] [address] [place], [address] ECRCL 28.02 ml/min Normal [facility] Comment on above: Performed By: #### L 100.0100, L500.2500 #### [facility] [address] [place], [address] EST GFR - AA 43 mL/min Low >60 [facility] Comment on above: Result Comment: Afri can [place]eg[place] GFR Calc Performed By: #### L 100.0100, L500.2500 #### [facility] [address] [place], [address] GAP 7 Normal 5-15 [facility] Comment on above: Performed By: #### L 100.0100, L500.2500 #### [facility] [address] [place], [address] GFR/1.73 sq M.predicted among non-blacks MDRD (S/P/Bld) [Vol rate/Area] 35 mL/min/{1.73_m2} Low >60 [facility] Comment on above: Result Comment: Non- GFR Calc Performed By: #### L 100.0100, L500.2500 #### [facility] [address] [place], [address] Glucose [Mass/Vol] 292 mg/dL High 74-[address] [facility] Comment on above: Result Comment: Gluc ose result greater than or equal to 200 mg/dL suggests DIABETES MELLITUS per A.D.A. criteria. Performed By: #### L 100.0100, L500.2500 #### [facility] [address] [place], [address] Potassium [Moles/Vol] 4.0 mmol/L Normal 3.5-5.1 [facility] Comment on above: Performed By: #### L 100.0100, L500.2500 #### [facility] [address] [place], [address] Sodium [Moles/Vol] 135 mmol/L Low 136-[address] [facility] Comment on above: Performed By: #### L 100.0100, L500.2500 #### [facility] [address] [place], [address] Urea nitrogen [Mass/Vol] 42 mg/dL High 7-18 [facility] Comment on above: Performed By: #### L 100.0100, L500.2500 #### [facility] [address] [place], [address] Bedside Glucoseon 09-14-2024 FINGERSTICK GLU 276 mg/dL High 74-106 [facility] Comment on above: Result Comment: Dr James sim Followed Insulin Given MANAGEMENT OF PATIENT CARE PER NURSING PROTOCOL Performed By: #### L 501.080 #### [facility] [address] [place], [address] CBC W/Diff, Automatedon 11-1 Absolute Lymph 1.66 X10 3/uL Normal 0.83-4.51 [facility] Comment on above: Performed By: #### L 100.0100, L500.2500 #### [facility] [address] [place], [address] Absolute Neut 7.6 X10 3/uL Normal 2.0-7.7 [facility] Comment on above: Performed By: #### L 100.0100, L500.2500 #### [facility] [address] [place], [address] Basophils/100 WBC (Bld) 0.9 % Normal 0-1 [facility] Comment on above: Performed By: #### L 100.0100, L500.2500 #### [facility] [address] [place], [address] Eosinophils/100 WBC (Bld) 2.2 % Normal 0-5 [facility] Comment on above: Performed By: #### L 100.0100, L500.2500 #### [facility] [address] [place], [address] Erythrocyte distribution width (RBC) [Ratio] 13.4 % Normal 11.6-14.6 [facility] Comment on above: Performed By: #### L 100.0100, L500.2500 #### [facility] [address] [place], [address] Hematocrit (Bld) [Volume fraction] 32.8 % Low 40-54 [facility] Comment on above: Performed By: #### L 100.0100, L500.2500 #### [facility] [address] [place], [address] Hemoglobin (Bld) [Mass/Vol] 11.1 g/dL Low 13.0-16.5 [facility] Comment on above: Performed By: #### L 100.0100, L500.2500 #### [facility] [address] [place], [address] IG% 0.300 Normal 0.0-0.9 [facility] Comment on above: Result Comment: IG% - Immature Granulocytes (promyelocytes, myelocytes and metamyelocytes) > 1% indicates that a LEFT SHIFT is Present. Performed By: #### L 100.0100, L500.2500 #### [facility] [address] [place], [address] Lymphocytes/100 WBC (Bld) 15.7 % Low 19-41 [facility] Comment on above: Performed By: #### L 100.0100, L500.2500 #### [facility] [address] [place], [address] MCH (RBC) [Entitic mass] 30.7 pg Normal 27.0-32.0 [facility] Comment on above: Performed By: #### L 100.0100, L500.2500 #### [facility] [address] [place], [address] MCHC (RBC) [Mass/Vol] 33.8 g/dL Normal 32-36 [facility] Comment on above: Performed By: #### L 100.0100, L500.2500 #### [facility] [address] [place], [address] MCV (RBC) [Entitic vol] 90.6 fL Normal 80-94 [facility] Comment on above: Performed By: #### L 100.0100, L500.2500 #### [facility] [address] [place], [address] Monocytes/100 WBC (Bld) 9.0 % Normal 0-10 [facility] Comment on above: Performed By: #### L 100.0100, L500.2500 #### [facility] [address] [place], [address] Neutrophils/100 WBC (Bld) 71.9 % High 47-70 [facility] Comment on above: Performed By: #### L 100.0100, L500.2500 #### [facility] [address] [place], [address] Nucleated RBC (Bld) [#/Vol] 0 10*3/uL Normal 0-5 [facility] Comment on above: Performed By: #### L 100.0100, L500.2500 #### [facility] [address] [place], [address] Platelet mean volume (Bld) [Entitic vol] 11.9 fL Normal 6.2-12.0 [facility] Comment on above: Performed By: #### L 100.0100, L500.2500 #### [facility] [address] [place], [address] Platelets (Bld) [#/Vol] 186 10*3/uL Normal 150-450 [facility] Comment on above: Performed By: #### L 100.0100, L500.2500 #### [facility] [address] [place], [address] RBC (Bld) [#/Vol] 3.62 10*6/uL Low 4.6-6.2 [facility] Comment on above: Performed By: #### L 100.0100, L500.2500 #### [facility] [address] [place], [address] RDW SD 44.5 fl High 35.1-43.9 [facility] Comment on above: Performed By: #### L 100.0100, L500.2500 #### [facility] [address] [place], [address] WBC (Bld) [#/Vol] 10.5 10*3/uL Normal 4.4-11.0 [facility] Comment on above: Performed By: #### L 100.0100, L500.2500 #### [facility] [address] [place], [address] Basic Metabolic Profile (BMP )on 09-13-2024 BUN Normal 7-18 [facility] Comment on above: Result Comment: Canc elled via OM: MD Ordered Performed By: #### L 501.080 #### [facility] [address] [place], [address] BUN/CRE Normal 10-20 [facility] Comment on above: Result Comment: Canc elled via OM: MD Ordered Performed By: #### L 501.080 #### [facility] [address] [place], [address] CA,Total Normal 8.5-10.1 [facility] Comment on above: Result Comment: Canc elled via OM: MD Ordered Performed By: #### L 501.080 #### [facility] [address] [place], [address] CL Normal 98-107 [facility] Comment on above: Result Comment: Canc elled via OM: MD Ordered Performed By: #### L 501.080 #### [facility] [address] [place], [address] CO2 Normal 21.0-32.0 [facility] Comment on above: Result Comment: Canc elled via OM: MD Ordered Performed By: #### L 501.080 #### [facility] [address] [place], [address] CREAT,SERUM Normal 0.70-1.30 [facility] Comment on above: Result Comment: Canc elled via OM: MD Ordered Performed By: #### L 501.080 #### [facility] [address] [place], [address] EST GFR Normal >60 [facility] Comment on above: Result Comment: Canc elled via OM: MD Ordered Performed By: #### L 501.080 #### [facility] [address] [place], [address] EST GFR - AA Normal >60 [facility] Comment on above: Result Comment: Canc elled via OM: MD Ordered Performed By: #### L 501.080 #### [facility] [address] [place], [address] GAP Normal 5-15 [facility] Comment on above: Result Comment: Canc elled via OM: MD Ordered Performed By: #### L 501.080 #### [facility] [address] [place], [address] GLU Normal 74-106 [facility] Comment on above: Result Comment: Canc elled via OM: MD Ordered Performed By: #### L 501.080 #### [facility] [address] [place], [address] Potassium Normal 3.5-5.1 [facility] Comment on above: Result Comment: Canc elled via OM: MD Ordered Performed By: #### L 501.080 #### [facility] [address] [place], [address] Basic Metabolic Profile (BMP) Normal 136-145 [facility] Comment on above: Result Comment: Canc elled via OM: MD Ordered Performed By: #### L 501.080 #### [facility] [address] [place], [address] BUN/CRE 17.4 RATIO Normal 10-20 [facility] Comment on above: Performed By: #### L 501.080 #### [facility] [address] [place], [address] CA,Total 8.7 mg/dL Normal 8.5-10.1 [facility] Comment on above: Performed By: #### L 501.080 #### [facility] [address] [place], [address] Chloride [Moles/Vol] 105 mmol/L Normal 98-107 [facility] Comment on above: Performed By: #### L 501.080 #### [facility] [address] [place], [address] CO2 [Moles/Vol] 28.0 mmol/L Normal 21.0-32.0 [facility] Comment on above: Performed By: #### L 501.080 #### [facility] [address] [place], [address] Creatinine [Mass/Vol] 1.78 mg/dL High 0.70-1.30 [facility] Comment on above: Result Comment: The validity of the calculated GFR GFRAA in patients over 70 years has not been determined. Clinical correlation is essential. Performed By: #### L 501.080 #### [facility] [address] [place], [address] ECRCL 30.95 ml/min Normal [facility] Comment on above: Performed By: #### L 501.080 #### [facility] [address] [place], [address] EST GFR - AA 47 mL/min Low >60 [facility] Comment on above: Result Comment: Afri can [place] GFR Calc Performed By: #### L 501.080 #### [facility] [address] [place], [address] GAP 7 Normal 5-15 [facility] Comment on above: Performed By: #### L 501.080 #### [facility] [address] [place], [address] GFR/1.73 sq M.predicted among non-blacks MDRD (S/P/Bld) [Vol rate/Area] 39 mL/min/{1.73_m2} Low >60 [facility] Comment on above: Result Comment: Non- GFR Calc Performed By: #### L 501.080 #### [facility] [address] [place], [address] Glucose [Mass/Vol] 138 mg/dL High 74-[address] [facility] Comment on above: Result Comment: Fast ing Glucose result greater than or equal to 126 mg/dL suggests DIABETES MELLITUS per A.D.A. criteria. Performed By: #### L 501.080 #### [facility] [address] [place], [address] Potassium [Moles/Vol] 3.4 mmol/L Low 3.5-5.1 [facility] Comment on above: Performed By: #### L 501.080 #### [facility] [address] [place], [address] Sodium [Moles/Vol] 140 mmol/L Normal 136-[address] [facility] Comment on above: Performed By: #### L 501.080 #### [facility] [address] [place], [address] Urea nitrogen [Mass/Vol] 31 mg/dL High 7-18 [facility] Comment on above: Performed By: #### L 501.080 #### [facility] [address] [place], [address] Bedside Glucoseon 09-13-2024 FINGERSTICK GLU 281 mg/dL High 74-106 [facility] Comment on above: Result Comment: ADITI ESCOBEDO OF PATIENT CARE PER NURSING PROTOCOL Performed By: #### L 501.080 #### [facility] [address] [place], [address] FINGERSTICK GLU 179 mg/dL High 74-106 [facility] Comment on above: Result Comment: ADITI GEMENT OF PATIENT CARE PER NURSING PROTOCOL Performed By: #### L 500.2500, L100.0100 #### [facility] [address] [place], [address] FINGERSTICK GLU 234 mg/dL High 74-106 [facility] Comment on above: Result Comment: ADITI GEMENT OF PATIENT CARE PER NURSING PROTOCOL Performed By: #### L 501.080 #### [facility] [address] [place], [address] FINGERSTICK GLU 238 mg/dL High -106 [facility] Comment on above: Result Comment: ADITI GEMENT OF PATIENT CARE PER NURSING PROTOCOL Performed By: #### L 501.080 #### [facility] [address] [place], [address] FINGERSTICK GLU 126 mg/dL High -106 [facility] Comment on above: Result Comment: ADITI GEMENT OF PATIENT CARE PER NURSING PROTOCOL Performed By: #### L 501.080 #### [facility] [address] [place], [address] CBC W/Diff, Automatedon 11-1 Absolute Neut Normal 2.0-7.7 [facility] Comment on above: Result Comment: Canc elled via OM: MD Ordered Performed By: #### L 100.0100, L500.2500 #### [facility] [address] [place], [address] HCT Normal 40-54 [facility] Comment on above: Result Comment: Canc elled via OM: MD Ordered Performed By: #### L 100.0100, L500.2500 #### [facility] [address] [place], [address] HGB Normal 13.0-16.5 [facility] Comment on above: Result Comment: Canc elled via OM: MD Ordered Performed By: #### L 100.0100, L500.2500 #### [facility] [address] [place], [address] MCH Normal 27.0-32.0 [facility] Comment on above: Result Comment: Canc elled via OM: MD Ordered Performed By: #### L 100.0100, L500.2500 #### [facility] [address] [place], [address] MCHC Normal 32-36 [facility] Comment on above: Result Comment: Canc elled via OM: MD Ordered Performed By: #### L 100.0100, L500.2500 #### [facility] [address] [place], [address] MCV Normal 80-94 [facility] Comment on above: Result Comment: Canc elled via OM: MD Ordered Performed By: #### L 100.0100, L500.2500 #### [facility] [address] [place], [address] NEUT% Normal 47-70 [facility] Comment on above: Result Comment: Canc elled via OM: MD Ordered Performed By: #### L 100.0100, L500.2500 #### [facility] [address] [place], [address] PLT Normal 150-450 [facility] Comment on above: Result Comment: Canc elled via OM: MD Ordered Performed By: #### L 100.0100, L500.2500 #### [facility] [address] [place], [address] RBC Normal 4.6-6.2 [facility] Comment on above: Result Comment: Canc elled via OM: MD Ordered Performed By: #### L 100.0100, L500.2500 #### [facility] [address] [place], [address] RDW CV Normal 11.6-14.6 [facility] Comment on above: Result Comment: Canc elled via OM: MD Ordered Performed By: #### L 100.0100, L500.2500 #### [facility] [address] [place], [address] RDW SD Normal 35.1-43.9 [facility] Comment on above: Result Comment: Canc elled via OM: MD Ordered Performed By: #### L 100.0100, L500.2500 #### [facility] [address] [place], [address] WBC Normal 4.4-11.0 [facility] Comment on above: Result Comment: Canc elled via OM: MD Ordered Performed By: #### L 100.0100, L500.2500 #### [facility] [address] [place], [address] Absolute Lymph 2.32 X10 3/uL Normal 0.83-4.51 [facility] Comment on above: Performed By: #### L 501.080 #### [facility] [address] [place], [address] Absolute Neut 7.4 X10 3/uL Normal 2.0-7.7 [facility] Comment on above: Performed By: #### L 501.080 #### [facility] [address] [place], [address] Basophils/100 WBC (Bld) 0.8 % Normal 0-1 [facility] Comment on above: Performed By: #### L 501.080 #### [facility] [address] [place], [address] Eosinophils/100 WBC (Bld) 1.3 % Normal 0-5 [facility] Comment on above: Performed By: #### L 501.080 #### [facility] [address] [place], [address] Erythrocyte distribution width (RBC) [Ratio] 13.8 % Normal 11.6-14.6 [facility] Comment on above: Performed By: #### L 501.080 #### [facility] [address] [place], [address] Hematocrit (Bld) [Volume fraction] 30.7 % Low 40-54 [facility] Comment on above: Performed By: #### L 501.080 #### [facility] [address] [place], [address] Hemoglobin (Bld) [Mass/Vol] 10.4 g/dL Low 13.0-16.5 [facility] Comment on above: Performed By: #### L 501.080 #### [facility] [address] [place], [address] IG% 0.400 Normal 0.0-0.9 [facility] Comment on above: Result Comment: IG% - Immature Granulocytes (promyelocytes, myelocytes and metamyelocytes) > 1% indicates that a LEFT SHIFT is Present. Performed By: #### L 501.080 #### [facility] [address] [place], [address] Lymphocytes/100 WBC (Bld) 21.2 % Normal 19-41 [facility] Comment on above: Performed By: #### L 501.080 #### [facility] [address] [place], [address] MCH (RBC) [Entitic mass] 30.6 pg Normal 27.0-32.0 [facility] Comment on above: Performed By: #### L 501.080 #### [facility] [address] [place], [address] MCHC (RBC) [Mass/Vol] 33.9 g/dL Normal 32-36 [facility] Comment on above: Performed By: #### L 501.080 #### [facility] [address] [place], [address] MCV (RBC) [Entitic vol] 90.3 fL Normal 80-94 [facility] Comment on above: Performed By: #### L 501.080 #### [facility] [address] [place], [address] Monocytes/100 WBC (Bld) 9.3 % Normal 0-10 [facility] Comment on above: Performed By: #### L 501.080 #### [facility] [address] [place], [address] Neutrophils/100 WBC (Bld) 67.0 % Normal 47-70 [facility] Comment on above: Performed By: #### L 501.080 #### [facility] [address] [place], [address] Nucleated RBC (Bld) [#/Vol] 0 10*3/uL Normal 0-5 [facility] Comment on above: Performed By: #### L 501.080 #### [facility] [address] [place], [address] Platelet mean volume (Bld) [Entitic vol] 11.4 fL Normal 6.2-12.0 [facility] Comment on above: Performed By: #### L 501.080 #### [facility] [address] [place], [address] Platelets (Bld) [#/Vol] 168 10*3/uL Normal 150-450 [facility] Comment on above: Performed By: #### L 501.080 #### [facility] [address] [place], [address] RBC (Bld) [#/Vol] 3.40 10*6/uL Low 4.6-6.2 [facility] Comment on above: Performed By: #### L 501.080 #### [facility] Laboratory [address] [place], [address] RDW SD 45.1 fl High 35.1-43.9 [facility] Comment on above: Performed By: #### L 501.080 #### [facility] [address] [place], [address] WBC (Bld) [#/Vol] 11.0 10*3/uL Normal 4.4-11.0 [facility] Comment on above: Performed By: #### L 501.080 #### [facility] [address] [place], [address] Magnesiumon 09-13-2024 Magnesium [Mass/Vol] 2.0 mg/dL Normal 1.6-2.6 [facility] Comment on above: Performed By: #### L 501.080 #### [facility] [address] [place], [address] Phosphoruson 09-13-2024 Phosphate [Mass/Vol] 3.2 mg/dL Normal 2.5-4.9 [facility] Comment on above: Performed By: #### L 501.080 #### [facility] [address] [place], [address] 12 Lead EKGon 09-12-2024 12 Lead EKG [facility] Cardiovascular Services [address] [place] [address] 12 Lead EKG 09/12/24 0346 MR#: [id number] Acct: [id number] Name: ENOC FERNANDES Rep #: [id number] : 1945 78 From: Bernardo Davis MD [...] ECG Confirmed by JACQUI URIBE, BERNARDO ([id number]), acquisitions editor DANISH MALDONADO ([id number]) on 09/12/2024 6:43:17 AM Referred By: Confirmed By: BERNARDO DAVIS MD 09/12/24 0643 Date Bernardo Davis MD CC: Dr. Ryley Jeter MD; Dr. Cecilio Polanco DO; Dr. Young Koroma MD Signed Normal [facility] BNP,B-Type NATRIURETIC PEPTI Silviano 09-12-2024 Natriuretic peptide B (Bld) [Mass/Vol] 903.4 pg/mL High 0-100 [facility] Comment on above: Performed By: #### L 100.0100, L500.2500 #### [facility] [address] [place], [address] Basic Metabolic Profile (BMP )on 09-12-2024 BUN/CRE 14.5 RATIO Normal 10-20 [facility] Comment on above: Order Comment: 1Y Performed By: #### L 100.0100, L500.2500 #### [facility] [address] [place], [address] CA,Total 9.1 mg/dL Normal 8.5-10.1 [facility] Comment on above: Order Comment: 1Y Performed By: #### L 100.0100, L500.2500 #### [facility] [address] [place], [address] Chloride [Moles/Vol] 105 mmol/L Normal 98-107 [facility] Comment on above: Order Comment: 1Y Performed By: #### L 100.0100, L500.2500 #### [facility] [address] [place], [address] CO2 [Moles/Vol] 22.0 mmol/L Normal 21.0-32.0 [facility] Comment on above: Order Comment: 1Y Performed By: #### L 100.0100, L500.2500 #### [facility] [address] [place], [address] Creatinine [Mass/Vol] 1.86 mg/dL High 0.70-1.30 [facility] Comment on above: Order Comment: 1Y Result Comment: The validity of the calculated GFR GFRAA in patients over 70 years has not been determined. Clinical correlation is essential. Performed By: #### L 100.0100, L500.2500 #### [facility] [address] [place], [address] ECRCL 29.61 ml/min Normal [facility] Comment on above: Order Comment: 1Y Performed By: #### L 100.0100, L500.2500 #### [facility] [address] [place], [address] EST GFR - AA 45 mL/min Low >60 [facility] Comment on above: Order Comment: 1Y Result Comment: Afri can Seneg[place]e GFR Calc Performed By: #### L 100.0100, L500.2500 #### [facility] [address] [place], [address] GAP 11 Normal 5-15 [facility] Comment on above: Order Comment: 1Y Performed By: #### L 100.0100, L500.2500 #### [facility] [address] [place], [address] GFR/1.73 sq M.predicted among non-blacks MDRD (S/P/Bld) [Vol rate/Area] 37 mL/min/{1.73_m2} Low >60 [facility] Comment on above: Order Comment: 1Y Result Comment: Non- GFR Calc Performed By: #### L 100.0100, L500.2500 #### [facility] [address] [place], [address] Glucose [Mass/Vol] 369 mg/dL High 74-[address] [facility] Comment on above: Order Comment: 1Y Result Comment: Gluc ose result greater than or equal to 200 mg/dL suggests DIABETES MELLITUS per A.D.A. criteria. Performed By: #### L 100.0100, L500.2500 #### [facility] [address] [place], [address] Potassium [Moles/Vol] 4.1 mmol/L Normal 3.5-5.1 [facility] Comment on above: Order Comment: 1Y Performed By: #### L 100.0100, L500.2500 #### [facility] [address] [place], [address] Sodium [Moles/Vol] 138 mmol/L Normal 136-[address] [facility] Comment on above: Order Comment: 1Y Performed By: #### L 100.0100, L500.2500 #### [facility] [address] [place], [address] Urea nitrogen [Mass/Vol] 27 mg/dL High 7-18 [facility] Comment on above: Order Comment: 1Y Performed By: #### L 100.0100, L500.2500 #### [facility] [address] [place], [address] Bedside Glucoseon 09-12-2024 FINGERSTICK GLU 202 mg/dL High 74-106 [facility] Comment on above: Result Comment: ADITI ESCOBEDO OF PATIENT CARE PER NURSING PROTOCOL Performed By: #### L 501.080 #### [facility] [address] [place], [address] FINGERSTICK GLU 122 mg/dL High 74-106 [facility] Comment on above: Result Comment: ADITI GEMENT OF PATIENT CARE PER NURSING PROTOCOL Performed By: #### L 500.2500, L100.0100 #### [facility] [address] [place], [address] FINGERSTICK GLU 398 mg/dL High 74-106 [facility] Comment on above: Result Comment: ADITI GEMENT OF PATIENT CARE PER NURSING PROTOCOL Performed By: #### L 500.2500, L100.0100 #### [facility] [address] [place], [address] FINGERSTICK GLU 377 mg/dL High 74-106 [facility] Comment on above: Result Comment: ADITI GEMENT OF PATIENT CARE PER NURSING PROTOCOL Performed By: #### L 500.2500, L100.0100 #### [facility] [address] [place], [address] CBC W/Diff, Automatedon 11 Absolute Lymph 2.62 X10 3/uL Normal 0.83-4.51 [facility] Comment on above: Performed By: #### L 100.0100, L500.2500 #### [facility] [address] [place], [address] Absolute Neut 19.7 X10 3/uL High 2.0-7.7 [facility] Comment on above: Performed By: #### L 100.0100, L500.2500 #### [facility] [address] [place], [address] Basophils/100 WBC (Bld) 0.7 % Normal 0-1 [facility] Comment on above: Performed By: #### L 100.0100, L500.2500 #### [facility] [address] [place], [address] Eosinophils/100 WBC (Bld) 0.8 % Normal 0-5 [facility] Comment on above: Performed By: #### L 100.0100, L500.2500 #### [facility] [address] [place], [address] Erythrocyte distribution width (RBC) [Ratio] 13.8 % Normal 11.6-14.6 [facility] Comment on above: Performed By: #### L 100.0100, L500.2500 #### [facility] [address] [place], [address] Hematocrit (Bld) [Volume fraction] 38.9 % Low 40-54 [facility] Comment on above: Performed By: #### L 100.0100, L500.2500 #### [facility] [address] [place], [address] Hemoglobin (Bld) [Mass/Vol] 13.1 g/dL Normal 13.0-16.5 [facility] Comment on above: Performed By: #### L 100.0100, L500.2500 #### [facility] [address] [place], [address] IG% 0.800 Normal 0.0-0.9 [facility] Comment on above: Result Comment: IG% - Immature Granulocytes (promyelocytes, myelocytes and metamyelocytes) > 1% indicates that a LEFT SHIFT is Present. Performed By: #### L 100.0100, L500.2500 #### [facility] [address] [place], [address] Lymphocytes/100 WBC (Bld) 10.7 % Low 19-41 [facility] Comment on above: Performed By: #### L 100.0100, L500.2500 #### [facility] [address] [place], [address] MCH (RBC) [Entitic mass] 30.6 pg Normal 27.0-32.0 [facility] Comment on above: Performed By: #### L 100.0100, L500.2500 #### [facility] [address] [place], [address] MCHC (RBC) [Mass/Vol] 33.7 g/dL Normal 32-36 [facility] Comment on above: Performed By: #### L 100.0100, L500.2500 #### [facility] [address] [place], [address] MCV (RBC) [Entitic vol] 90.9 fL Normal 80-94 [facility] Comment on above: Performed By: #### L 100.0100, L500.2500 #### [facility] [address] [place], [address] Monocytes/100 WBC (Bld) 6.2 % Normal 0-10 [facility] Comment on above: Performed By: #### L 100.0100, L500.2500 #### [facility] [address] [place], [address] Neutrophils/100 WBC (Bld) 80.8 % High 47-70 [facility] Comment on above: Performed By: #### L 100.0100, L500.2500 #### [facility] [address] [place], [address] Nucleated RBC (Bld) [#/Vol] 0 10*3/uL Normal 0-5 [facility] Comment on above: Performed By: #### L 100.0100, L500.2500 #### [facility] [address] [place], [address] Platelet mean volume (Bld) [Entitic vol] 11.4 fL Normal 6.2-12.0 [facility] Comment on above: Performed By: #### L 100.0100, L500.2500 #### [facility] [address] [place], [address] Platelets (Bld) [#/Vol] 227 10*3/uL Normal 150-450 [facility] Comment on above: Performed By: #### L 100.0100, L500.2500 #### [facility] [address] [place], [address] RBC (Bld) [#/Vol] 4.28 10*6/uL Low 4.6-6.2 [facility] Comment on above: Performed By: #### L 100.0100, L500.2500 #### [facility] [address] [place], [address] RDW SD 46.5 fl High 35.1-43.9 [facility] Comment on above: Performed By: #### L 100.0100, L500.2500 #### [facility] [address] [place], [address] WBC (Bld) [#/Vol] 24.4 10*3/uL High 4.4-11.0 [facility] Comment on above: Performed By: #### L 100.0100, L500.2500 #### [facility] [address] [place], [address] Chest 1 View (Portable)on Chest 1 View (Portable) [facility] Imaging Services [address] [place] [address] Chest 1 View (Portable) MR#: [id number] Acct: [id number] Name: ENOC FERNANDES Rep #: [id number] : 1945 M 78 From: Nacho Mabry MD PCP: Dr. Ryley Jeter MD Status: REG ER Study: Chest 1 View (Portable) Date of Exam: 09/12/24 Exam# [id number] Ordering Dr: Cecilio Polanco DO [id number] EXAM: XR CHEST, 1 VIEW CLINICAL INDICATION: [...] Ryley Jeter MD; Dr. Cecilio Polanco DO Rn Long Term Care: Signed Normal [facility] Echo Completeon 09-12-2024 Echo Complete [facility] Cardiovascular Services [address] [place] [address] Echo Complete 09/12/24 0818 MR#: [id number] Acct: [id number] Name: ENOC FERNANDES Rep #: [id number] : 1945 78 From: Bernardo Davis MD [...] MD Date Dictated: 09/12/24817 Date Transcribed: 09/12/241316 Rn Long Term Care: Signed Normal [facility] Emergency Department Summary on 09-12-2024 Emergency Department Summary [facility] Medical Records Department [address] [place] [address] Emergency Department Summary 09/12/24 MR#: [id number] Acct: [id number] Name: ENOC FERNANDES Rep #: [id number] : 1945 78 From: Cecilio Polanco DO PCP: Dr. Ryley Jeter MD Status:ADM IN Location: ICU [id number] HPI History of Present Illness Chief Complaint: [...] recent illnesses. He has been seeing a fur grader in [place] for COVID related complications and he tells me he is taking metoprolol. He denies a history of congestive heart failure. No reported fevers. No known lung conditions. He was noted to be hypoxic for EMS. [facility] Medical History Pneumonia COVID Wears glasses Wears [...] AdvReac Other Verified 04/06/24 14:38 (Glucocorticoids) (steroids) Yprfrsa-YEZ-QfI Reductase AdvReac Other Verified 04/06/24 14:38 Inhibitor (Epaoojt-Fku-Hjb Reductase Inhibitor) Surgical History Hx of cystoscopy [...] Pressure Mean (more content not included)... Normal [facility] Kidney and Bladderon 024 Kidney and Bladder [facility] Imaging Services [address] [place] [address] Kidney and Bladder MR#: [id number] Acct: [id number] Name: ENOC FERNANDES Rep #: [id number] : 1945 M 78 From: Dharmesh maurice MD PCP: Dr. Ryley Jeter MD Status: ADM IN Study: Kidney and Bladder Date of Exam: 09/12/24 Exam# [id number] Ordering Dr: Nancy Bhatt MD [id number] STUDY: RENAL ULTRASOUND - COMPLETE REASON FOR [...] 12:57 EST Reading Location ID and State: [address] [place] [address] , Service support , CC: Dr. Ryley Jeter MD; Dr. Nancy Bhatt MD Rn Long Term Care: Signed Normal [facility] L501.4020on 09-12-2024 TROPONIN-I HS 346 pg/mL Invalid Interpretation Code 3.0-78.0 [facility] Comment on above: Order Comment: 'TROP ' Serial specimen #1, #2 or #3: 3 Result Comment: Crit ical Result(s) Called at: 09:19:13 09/12/2024 by: Eve Cruz. Results read back by same. Please Note: New Test Units and Gender Specific Reference Ranges. For more information see Policy Stat Procedure [place] High Sensitivity Troponin (TNIH) and attachments. Performed By: #### L 500.2500, L100.0100 #### [facility] [address] [place], [address] TROPONIN-I HS 205 pg/mL Invalid Interpretation Code 3.0-78.0 [facility] Comment on above: Result Comment: Crit ical Result(s) Called at: 06:27:52 09/12/2024 by: Eve Valiente. Results read back by same. Please Note: New Test Units and Gender Specific Reference Ranges. For more information see Policy Stat Procedure [place] High Sensitivity Troponin (TNIH) and attachments. Performed By: #### L 100.0100, L500.2500 #### [facility] [address] [place], [address] L501.5425on 09-12-2024 TROPONIN-I HS 57 pg/mL Normal 3.0-78.0 [facility] Comment on above: Order Comment: 1Y Result Comment: Helder francisco Note: New Test Units and Gender Specific Reference Ranges. For more information see Policy Stat Procedure [place] High Sensitivity Troponin (TNIH) and attachments. Performed By: #### L 100.0100, L500.2500 #### [facility] [address] [place], [address] Magnesiumon 09-12-2024 Magnesium [Mass/Vol] 2.1 mg/dL Normal 1.6-2.6 [facility] Comment on above: Order Comment: 1Y Performed By: #### L 100.0100, L500.2500 #### [facility] [address] [place], [address] Partial Thromboplast Timeon 09-12-2024 aPTT Coag (Bld) [Time] 35.1 s Normal 24.1-36.2 [facility] Comment on above: Performed By: #### L 100.0100, L500.2500 #### [facility] [address] [place], [address] Prothrombin Time w/INRon INR Coag (PPP) [Relative time] 1.1 {INR} Normal [facility] Comment on above: Performed By: #### L 100.0100, L500.2500 #### [facility] [address] [place], [address] PT Coag (PPP) [Time] 14.6 s Normal 11.7-14.9 [facility] Comment on above: Performed By: #### L 100.0100, L500.2500 #### [facility] [address] [place], [address] Renal Artery Duplex Ultrasou ndon 09-12-2024 Renal Artery Duplex Ultrasound [facility] Cardiovascular Services [address] [place] [address] Renal Artery Duplex Ultrasound 09/13/24 0801 MR#: [id number] Acct: [id number] Name: ENOC FERNANDES Rep #: [id number] : 1945 78 From: Malika Alaniz MD [...] MD Date Dictated: 09/13/24800 Date Transcribed: 09/13/241254 Rn Long Term Care: Signed Normal [facility] CBC W Auto Differential pane l (Bld)on 07-07-2024 Basophils (Bld) [#/Vol] 0.09 x10*3/uL Normal 0.00-0.10 [facility] Comment on above: Performed By: #### 5 7021-8 #### MAGGI PARNELL ([id number]) [facility] ([facility]) [address] [place] [address] Basophils/100 WBC (Bld) 1.1 % Normal 0.0-2.0 [facility] Comment on above: Performed By: #### 5 7021-8 #### MAGGI PARNELL ([id number]) [facility] ([facility]) [address] [place] [address] Eosinophils (Bld) [#/Vol] 0.43 x10*3/uL High 0.00-0.40 [facility] Comment on above: Performed By: #### 5 7021-8 #### MAGGI PARNELL ([id number]) [facility] ([facility]) [address] [place] [address] Eosinophils/100 WBC (Bld) 5.4 % Normal 0.0-6.0 [facility] Comment on above: Performed By: #### 5 7021-8 #### MAGGI PARNELL ([id number]) [facility] ([facility]) [address] [place] [address] Erythrocyte distribution width (RBC) [Ratio] 13.5 % Normal 11.5-14.5 [facility] Comment on above: Performed By: #### 5 7021-8 #### MAGGI PARNELL ([id number]) [facility] ([facility]) [address] [place] [address] Hematocrit (Bld) [Volume fraction] 43.5 % Normal 41.0-52.0 [facility] Comment on above: Performed By: #### 5 7021-8 #### MAGGI PARNELL ([id number]) [facility] ([facility]) [address] [place] [address] Hemoglobin (Bld) [Mass/Vol] 13.6 g/dL Normal 13.5-17.5 [facility] Comment on above: Performed By: #### 5 7021-8 #### MAGGI PARNELL ([id number]) [facility] ([facility]) [address] [place] [address] Immature granulocytes (Bld) [#/Vol] 0.02 x10*3/uL Normal 0.00-0.50 [facility] Comment on above: Performed By: #### 5 7021-8 #### MAGGI PARNELL ([id number]) [facility] ([facility]) [address] [place] [address] Immature granulocytes/100 WBC (Bld) 0.3 % Normal 0.0-0.9 [facility] Comment on above: Result Comment: Arielle ture Granulocyte Count (IG) includes promyelocytes, myelocytes and metamyelocytes but does not include bands. Percent differential counts (%) should be interpreted in the context of the absolute cell counts (cells/UL). Performed By: #### 5 7021-8 #### MAGGI PARNELL ([id number]) [facility] ([facility]) [address] [place] [address] Lymphocytes (Bld) [#/Vol] 2.08 x10*3/uL Normal 0.80-3.00 [facility] Comment on above: Performed By: #### 5 7021-8 #### MAGGI PARNELL ([id number]) [facility] ([facility]) [address] [place] [address] Lymphocytes/100 WBC (Bld) 26.3 % Normal 13.0-44.0 [facility] Comment on above: Performed By: #### 5 7021-8 #### MAGGI PARNELL ([id number]) [facility] ([facility]) [address] [place] [address] MCH (RBC) [Entitic mass] 30.4 pg Normal 26.0-34.0 [facility] Comment on above: Performed By: #### 5 7021-8 #### MAGGI PARNELL ([id number]) [facility] ([facility]) [address] [place] [address] MCHC (RBC) [Mass/Vol] 31.3 g/dL Low 32.0-36.0 [facility] Comment on above: Performed By: #### 5 7021-8 #### MAGGI PARNELL ([id number]) [facility] ([facility]) [address] [place] [address] MCV (RBC) [Entitic vol] 97 fL Normal 80-100 [facility] Comment on above: Performed By: #### 5 7021-8 #### MAGGI PARNELL ([id number]) [facility] ([facility]) [address] [place] [address] Monocytes (Bld) [#/Vol] 0.60 x10*3/uL Normal 0.05-0.80 [facility] Comment on above: Performed By: #### 5 7021-8 #### MAGGI PARNELL ([id number]) [facility] ([facility]) [address] [place] [address] Monocytes/100 WBC (Bld) 7.6 % Normal 2.0-10.0 [facility] Comment on above: Performed By: #### 5 7021-8 #### MAGGI PARNELL ([id number]) [facility] ([facility]) [address] [place] [address] Neutrophils (Bld) [#/Vol] 4.68 x10*3/uL Normal 1.60-5.50 [facility] Comment on above: Result Comment: Perc ent differential counts (%) should be interpreted in the context of the absolute cell counts (cells/uL). Performed By: #### 5 7021-8 #### MAGGI PARNELL ([id number]) [facility] ([facility]) [address] [place] [address] Neutrophils/100 WBC (Bld) 59.3 % Normal 40.0-80.0 [facility] Comment on above: Performed By: #### 5 7021-8 #### MAGGI PARNELL ([id number]) [facility] ([facility]) [address] [place] [address]28[address] Nucleated RBC/100 WBC (Bld) [Ratio] 0.0 /100 WBCs Normal 0.0-0.0 [facility] Comment on above: Performed By: #### 5 7021-8 #### MAGGI PARNELL ([id number]) [facility] ([facility]) [address] [place] [address] Platelets (Bld) [#/Vol] 260 x10*3/uL Normal 150-450 [facility] Comment on above: Performed By: #### 5 7021-8 #### MAGGI PARNELL ([id number]) [facility] ([facility]) [address] [place] [address] RBC (Bld) [#/Vol] 4.48 x10*6/uL Low 4.50-5.90 [facility] Comment on above: Performed By: #### 5 7021-8 #### MAGGI PARNELL ([id number]) [facility] ([facility]) [address] [place], [place] [address] 14508 WBC (Bld) [#/Vol] 7.9 x10*3/uL Normal 4.4-11.3 [facility] Comment on above: Performed By: #### 5 7021-8 #### MAGGI PARNELL ([id number]) [facility] ([facility]) [address] [place] [address] 85372 Comprehensive metabolic 2000 panelon 07-07-2024 Albumin BCP dye [Mass/Vol] 4.3 g/dL Normal 3.4-5.0 [facility] Comment on above: Performed By: #### 2 4323-8 #### MAGGI PARNELL ([id number]) [facility] ([facility]) [address] [place] [address] 09560 ALP [Catalytic activity/Vol] 69 U/L Normal 33-136 [facility] Comment on above: Performed By: #### 2 4323-8 #### MAGGI PARNELL ([id number]) [facility] ([facility]) [address] [place] [address] ALT With P-5'-P [Catalytic activity/Vol] 8 U/L Low 10-52 [facility] Comment on above: Result Comment: Bc ents treated with Sulfasalazine may generate falsely decreased results for ALT. Performed By: #### 2 4323-8 #### MAGGI PARNELL ([id number]) [facility] ([facility]) [address] [place] [address] Anion gap [Moles/Vol] 14 mmol/L Normal 10-20 [facility] Comment on above: Performed By: #### 2 432-8 #### MAGGI PARNELL ([id number]) [facility] ([facility]) [address] [place] [address] 47207 AST With P-5'-P [Catalytic activity/Vol] 13 U/L Normal 9-39 [facility] Comment on above: Performed By: #### 2 432-8 #### MAGGI PARNELL ([id number]) [facility] ([facility]) [address] [place] [address] 71982 Bilirubin [Mass/Vol] 0.5 mg/dL Normal 0.0-1.2 [facility] Comment on above: Performed By: #### 2 4323-8 #### MAGGI PARNELL ([id number]) [facility] ([facility]) [address] [place] [address] 56435 Calcium [Mass/Vol] 9.5 mg/dL Normal 8.6-10.3 [facility] Comment on above: Performed By: #### 2 432-8 #### MAGGI PARNELL ([id number]) [facility] ([facility]) [address] [place] [address] 01645 Chloride [Moles/Vol] 106 mmol/L Normal 98-107 [facility] Comment on above: Performed By: #### 2 432-8 #### MAGGI PARNELL ([id number]) [facility] ([facility]) [address] [place] [address] CO2 [Moles/Vol] 27 mmol/L Normal 21-32 [facility] Comment on above: Performed By: #### 2 4323-8 #### MAGGI PARNELL ([id number]) [facility] ([facility]) [address] [place] [address] 80724 Creatinine [Mass/Vol] 1.61 mg/dL High 0.50-1.30 [facility] Comment on above: Performed By: #### 2 432-8 #### MAGGI PARNELL ([id number]) [facility] ([facility]) [address] [place] [address] 04685 Glomerular filtration rate/1.73 sq M.predicted 43 mL/min/1.73m*2 Low >60 [facility] Comment on above: Result Comment: Calc ulations of estimated GFR are performed using the 2020 CKD-EPI Study Refit equation without the race variable for the IDMS-Traceable creatinine methods. https://jasn.asnjournals.org/content/early//ASN.09027 11154 Performed By: #### 2 4323-8 #### MAGGI PARNELL (60291) [facility] ([facility]) [employer] [place] [address] Glucose [Mass/Vol] 119 mg/dL High 74-99 [facility] Comment on above: Performed By: #### 2 4323-8 #### MAGGI PARNELL ([id number]) [facility] ([facility]) [address] [place] [address] 65127 Potassium [Moles/Vol] 4.0 mmol/L Normal 3.5-5.3 [facility] Comment on above: Performed By: #### 2 4323-8 #### MAGGI PARNELL ([id number]) [facility] ([facility]) [address] [place] [address] 05407 Protein [Mass/Vol] 6.8 g/dL Normal 6.4-8.2 [facility] Comment on above: Performed By: #### 2 4323-8 #### MAGGI PARNELL ([id number]) [facility] ([facility]) [address] [place] [address] 11417 Sodium [Moles/Vol] 143 mmol/L Normal 136-145 [facility] Comment on above: Performed By: #### 2 4323-8 #### MAGGI PARNELL ([id number]) [facility] ([facility]) [address] [place] [address] 49775 Urea nitrogen [Mass/Vol] 28 mg/dL High 6-23 [facility] Comment on above: Performed By: #### 2 4323-8 #### MAGGI PARNELL ([id number]) [facility] ([facility]) [address] [place] [address] 37179 HbA1c (Bld) [Mass fraction]o n 07-07-2024 Average glucose Estimated from glycated hemoglobin (Bld) [Mass/Vol] 180 mg/dL Normal Not Established [facility] Comment on above: Order Comment: Diagn osis of Diabetes-Adults Non-Diabetic: < or = 5.6% Increased risk for developing diabetes: 5.7-6.4% Diagnostic of diabetes: > or = 6.5% Performed By: #### 4 548-4 #### ALENA Paredes ([id number]) [facility] ([facility]) [address] [place] [address] 02023 Hemoglobin A1c/Hemoglobin.to alcira 07-07-2024 HbA1c (Bld) [Mass fraction] 7.9 % High see below [facility] Comment on above: Order Comment: Diagn osis of Diabetes-Adults Non-Diabetic: < or = 5.6% Increased risk for developing diabetes: 5.7-6.4% Diagnostic of diabetes: > or = 6.5% Performed By: #### 4 548-4 #### ALENA Paredes ([id number]) [facility] ([facility]) [address] [place] [address] 97100 Phosphateon 07-07-2024 Phosphate [Mass/Vol] 3.8 mg/dL Normal 2.5-4.9 [facility] Comment on above: Result Comment: The performance characteristics of phosphorus testing in heparinized plasma have been validated by the individual laboratory site where testing is performed. Testing on heparinized plasma is not approved by the FDA; however, such approval is not necessary. Performed By: #### 2 777-1 #### MAGGI PARNELL ([id number]) [facility] ([facility]) [address] [place], [place] [phone] Thyrotropinon 07-07-2024 TSH Qn 0.85 m[IU]/L Normal 0.44-3.98 [facility] Comment on above: Order Comment: TSH t esting is performed using different testing methodology at [facility] than at [facility]. Direct result comparisons should only be made within the same method. Performed By: #### 3 016-3 #### MAGGI PARNELL ([id number]) [facility] ([facility]) [address] [place], [place] [address] Thyroxine.freeon 07-07-2024 Free T4 [Mass/Vol] 1.01 ng/dL Normal 0.61-1.12 [facility] Comment on above: Order Comment: Thyro xine Free testing is performed using different testing methodology at [facility] than at [facility]. Direct result comparisons should only be made [...] By: #### 3 024-7 #### MAGGI PARNELL ([id number]) [facility] ([facility]) [address] [place] [address] 47807 Urateon 07-07-2024 Urate [Mass/Vol] 5.7 mg/dL Normal 4.0-7.5 [facility] Comment on above: Result Comment: Hortencia puncture immediately after or during the administration of Metamizole may lead to falsely low results. Testing should be performed immediately prior to Metamizole dosing. Performed By: #### 3 084-1 #### MAGGI PARNELL ([id number]) [facility] ([facility]) [address] [place] [address] PT D/C Summary (1)on 024 PT D/C Summary (1) [facility] [address] [place] [address] / REHABILITATION SERVICES DISCHARGE SUMMARY MR#: [id number] Acct: [id number] Name: ENOC FERNANDES Rep #: [id number] : 1945 78 From: Prashant Gamboa PT, Cert. T, OCS Referring Dr.: Dr. Kayden Colon MD Status: REG RCR Insurance: [facility] SELF PAY INSURANCE Discharge Summary D/C summary: [...] please feel free to call me at [phone]. Thank you for the referral of this patient. Sincerely, Prashant Gamboa PT, Cert MDT, OCS Balance/Gait/Function al tests Balance/Special Test Scores Oswestry Low Back Score: 30 Improvement % Improvement: 10 05/24/24 0659 CC: Dr. Ryley Jeter MD; Dr. Kayden Cloon MD JLA Signed Normal [facility] Inital Evaluation (1) - PTon 04-19-2024 Inital Evaluation (1) - PT [facility] [address] [place] [address] / REHABILITATION SERVICES INITIAL EVALUATION MR#: [id number] Acct: [id number] Name: ENOC FERNANDES Rep #: [id number] : 1945 78 From: Dheeraj Jerez PT. MD Stacy, OCS Referring Dr.: Dr. Kayden Colon MD Status: REG R Insurance: [facility] SELF PAY INSURANCE Patient's Visit Information Visit [...] at 330- (more content not included)... Normal [facility] L/S Spine Bending Flex/[place] 04-06-2024 L/S Spine Bending Flex/Ext [facility] [address] [place] [address] L/S Spine Bending Flex/Ext MR#: [id number] Acct: [id number] Name: ENOC FERNANDES Rep #: [id number] : 1945 M 78 From: Hiram Beauchamp MD PCP: Dr. Ryley Jeter MD Status: DEP AMB Study: L/S Spine Bending Flex/Ext Date of Exam: 04/06 Exam# [id number] Ordering Dr: Kayden Colon MD [id number] EXAM: XR LUMBOSACRAL SPINE FLEXION/EXTENSION ONLY, 2 [...] Ryley Jeter MD; Dr. Kayden Colon MD Rn Long Term Care: Signed Normal [facility] Orthopedic Visit Reporton Orthopedic Visit Report [facility] [address] [place] [address] OFFICE VISIT Date of Service: 04/06/24 MR#: [id number] Acct: [id number] Name: ENOC FERNANDES Rep #: [id number] : 1945 Provider: Dr. Kayden Colon MD Age/Sex: 78/M Location[place] [facility] Status: Signed Intake Vital Signs 08/12/21 09:11 04/06/24 14:37 Height 5 ft 7 in 5 ft 7 in Weight: 150 lb 4 oz BMI 23.5 Intake Visit Reasons: LUMBAR SPINE Accompanied by: Is patient in pain?: Yes Pain scale (1-10): 5 Allergies Corticosteroids (Glucocorticoids) (steroids) Adverse Reaction (Verified 04/06/24 14:38) Other Uxyivpk-HAN-DxV Reductase Inhibitor (Ourxbwb-Jiu-Wey Reductase Inhibitor) Adverse Reaction (Verified 04/06/24 14:38) [...] LUMBAR M (more content not included)... Normal [facility] L/S Spine Min 4 Viewson 03-02 L/S Spine Min 4 Views [facility] [address] [place], [place] [id number] L/S Spine Min 4 Views MR#: [id number] Acct: [id number] Name: ENOC FERNANDES Rep #: [id number] : 1945 M 78 From: Delmar Lyons MD PCP: Dr. Ryley Jeter MD Status: REG CLI Study: L/S Spine Min 4 Views Date of Exam: 03/22/24 Exam# [id number] Ordering Dr: Ryley Jeter MD [id number] STUDY: X-RAY - LUMBAR SPINE REASON FOR [...] EDT , CC: Dr. Ryley Jeter MD Rn Long Term Care: Signed Normal [facility] Albumin/Creatinineon 024 Albumin/Creatinine DL <= 20 mg/L (U) [Mass ratio] 221.6 ug/mg Creat High <30.0 [facility] Comment on above: Performed By: #### 1 4959-1 #### ALENA Paredes ([id number]) [facility] ([facility]) [address] [place] [address] 06922 Albumin/Creatinine DL <= 20 mg/L (U) [Mass ratio]on 02-07-2024 Albumin DL <= 20 mg/L (U) [Mass/Vol] 219.8 mg/L Normal Not established [facility] Comment on above: Performed By: #### 1 4959-1 #### ALENA Paredes ([id number]) [facility] ([facility]) [address] [place] [address] 87817 Creatinine (U) [Mass/Vol] 99.2 mg/dL Normal 20.0-370.0 [facility] Comment on above: Performed By: #### 1 4959-1 #### ALENA Paredes ([id number]) [facility] ([facility]) [address] [place] [address] 09238 Comprehensive metabolic 2000 panelon 02-07-2024 Albumin BCP dye [Mass/Vol] 4.0 g/dL Normal 3.4-5.0 [facility] Comment on above: Performed By: #### 2 4323-8 #### MAGGI PARNELL ([id number]) [facility] ([facility]) [address] [place] [address] 42899 ALP [Catalytic activity/Vol] 77 U/L Normal 33-136 [facility] Comment on above: Performed By: #### 2 4323-8 #### MAGGI PARNELL ([id number]) [facility] ([facility]) [address] [place] [address] 47574 ALT With P-5'-P [Catalytic activity/Vol] 7 U/L Low 10-52 [facility] Comment on above: Result Comment: Bc ents treated with Sulfasalazine may generate falsely decreased results for ALT. Performed By: #### 2 4323-8 #### MAGGI PARNELL ([id number]) [facility] ([facility]) [employer] [place] [address] Anion gap [Moles/Vol] 12 mmol/L Normal 10-20 [facility] Comment on above: Performed By: #### 2 4323-8 #### MAGGI PARNELL ([id number]) [facility] ([facility]) [employer] [place] [address] AST With P-5'-P [Catalytic activity/Vol] 14 U/L Normal 9-39 [facility] Comment on above: Performed By: #### 2 4323-8 #### MAGGI PARNELL ([id number]) [facility] ([facility]) [address] [place] [address] Bilirubin [Mass/Vol] 0.4 mg/dL Normal 0.0-1.2 [facility] Comment on above: Performed By: #### 2 4323-8 #### MAGGI PARNELL ([id number]) [facility] ([facility]) [address] [place] [address] 65540 Calcium [Mass/Vol] 9.2 mg/dL Normal 8.6-10.3 [facility] Comment on above: Performed By: #### 2 4323-8 #### MAGGI PARNELL ([id number]) [facility] ([facility]) [address] [place] [address] 69553 Chloride [Moles/Vol] 105 mmol/L Normal 98-107 [facility] Comment on above: Performed By: #### 2 4323-8 #### MAGGI PARNELL ([id number]) [facility] ([facility]) [address] [place] [address] CO2 [Moles/Vol] 29 mmol/L Normal 21-32 [facility] Comment on above: Performed By: #### 2 4323-8 #### MAGGI PARNELL ([id number]) [facility] ([facility]) [employer] [place] [address] Creatinine [Mass/Vol] 1.92 mg/dL High 0.50-1.30 [facility] Comment on above: Performed By: #### 2 4323-8 #### MAGGI PARNELL ([id number]) [facility] ([facility]) [address] [place] [address] 02961 Glomerular filtration rate/1.73 sq M.predicted 35 mL/min/1.73m*2 Low >60 [facility] Comment on above: Result Comment: Calc ulations of estimated GFR are performed using the 2020 CKD-EPI Study Refit equation without the race variable for the IDMS-Traceable creatinine methods. https://jasn.asnjournals.org/content/early//ASN.92437 53881 Performed By: #### 2 4323-8 #### MAGGI PARNELL ([id number]) [facility] ([facility]) [address] [place] [address] 46164 Glucose [Mass/Vol] 81 mg/dL Normal 74-99 [facility] Comment on above: Performed By: #### 2 4323-8 #### MAGGI PARNELL ([id number]) [facility] ([facility]) [address] [place] [address] 50872 Potassium [Moles/Vol] 4.5 mmol/L Normal 3.5-5.3 [facility] Comment on above: Performed By: #### 2 4323-8 #### MAGGI PARNELL (18593) [facility] ([facility]) [address] [place] [address] 58164 Protein [Mass/Vol] 6.4 g/dL Normal 6.4-8.2 [facility] Comment on above: Performed By: #### 2 4323-8 #### MAGGI PARNELL ([id number]) [facility] ([facility]) [address] [place] [address] 06926 Sodium [Moles/Vol] 141 mmol/L Normal 136-145 [facility] Comment on above: Performed By: #### 2 4323-8 #### MAGGI PARNELL ([id number]) [facility] ([facility]) [address] [place] [address] 00151 Urea nitrogen [Mass/Vol] 29 mg/dL High 6-23 [facility] Comment on above: Performed By: #### 2 4323-8 #### MAGGI PARNELL ([id number]) [facility] ([facility]) [address] [place] [address] 36093 Basophil percentageOrdered B y: Ryley Steffany on 12-15-2023 Chloride [Moles/Vol] 109 mmol/L 98-107 [facility] Glucose [Mass/Vol] 126 mg/dL 74-106 [facility] Comment on above: Fasting Glucose resu lt greater than or equal to 126 mg/dL suggests DIABETES MELLITUS per A.D.A. criteria. Potassium [Moles/Vol] 4.1 mmol/L 3.5-5.1 [facility] Sodium [Moles/Vol] 140 mmol/L 136-[address] [facility] - Chemistry and C hemistry - challengeOrdered By: Ryley Jeter on 12-15-2023 CO2 [Moles/Vol] 29.0 mmol/L 21.0-32.0 [facility] Urea nitrogen/Creatinine [Mass ratio] 14.9 mg/mg 10-20 [facility] No Panel InformationOrdered By: Ryley Jeter on 12-15-2023 Estimated GFR (MDRD) Amer 45 mL/min >60 [facility] Comment on above: GFR Calc Estimated GFR (MDRD) Non-Af Amer 37 mL/min >60 [facility] Comment on above: Non- GFR Calc Serum or plasma calcium nikkie urement (mass/volume)Ordered By: Ryley Jeter on 12-15-2023 Calcium [Mass/Vol] 9.4 mg/dL 8.5-10.[address] [facility] Serum or plasma creatinine m easurement (mass/volume)Ordered By: Ryley Jeter on 12-15-2023 Creatinine [Mass/Vol] 1.88 mg/dL 0.70-1.30 [facility] Comment on above: The validity of the calculated GFR & GFRAA in patients over 70 years has not been determined. Clinical correlation is essential. Serum or plasma urea nitroge n measurement (mass/volume)Ordered By: Ryley Jeter on 12-15-2023 Urea nitrogen [Mass/Vol] 28 mg/dL 7-18 [facility] Thin prep Papanicolaou smear with manual screeningOrdered By: Ryley Jeter on 12-15-2023 Thin prep Papanicolaou smear with manual screening 2 5-15 [facility] APTTOrdered By: Burton lr on 12-01-2023 aPTT Coag (Bld) [Time] 35 s High [facility] Basic metabolic 2000 panelon 12-01-2023 Anion gap [Moles/Vol] 10 mmol/L 10 - 20 mmol/L [facility] Calcium [Mass/Vol] 8.9 mg/dL 8.4 - 10. 2 mg/dL [facility] Chloride [Moles/Vol] 105 mmol/L 98 - 10 8 mmol/L [facility] Creatinine [Mass/Vol] 1.76 mg/dL High 0.80 - 1.30 mg/dL [facility] GFR/1.73 sq M.predicted CKD-EPI (S/P/Bld) [Vol rate/Area] 39 Low - PINF [facility] Glucose [Mass/Vol] 82 mg/dL 65 - 99 mg/dL [facility] HCO3 [Moles/Vol] 30 mmol/L 21 - 32 mmol/L [facility] Interpretation and review of laboratory results Abnormal [facility] Potassium [Moles/Vol] 3.4 mmol/L Low 3.5 - 5.1 mmol/L [facility] Sodium [Moles/Vol] 142 mmol/L 135 - 145 mmol/L [facility] Urea nitrogen [Mass/Vol] 26 mg/dL High 8 - 25 mg/dL [facility] Urea nitrogen/Creatinine [Mass ratio] 14.8 mg/mg 10.0 - 20.0 [facility] CBC Auto Differentialon 11-03 Basophils (Bld) [#/Vol] 0.06 10*3/uL [facility] Basophils/100 WBC (Bld) 0.7 % [facility] Eosinophils (Bld) [#/Vol] 0.61 10*3/uL High [facility] Eosinophils/100 WBC (Bld) 7.4 % [facility] Erythrocyte distribution width (RBC) [Entitic vol] 13.3 % 11.6 - 14.8 % [facility] Hematocrit (Bld) [Volume fraction] 36.6 % Low 41.0 - 53.0 % [facility] Hemoglobin (Bld) [Mass/Vol] 12.0 g/dL Low 13.5 - 17.5 g/dL [facility] Immature granulocytes (Bld) [#/Vol] 0.02 10*3/uL [facility] Immature granulocytes/100 WBC (Bld) 0.20 % [facility] Interpretation and review of laboratory results Abnormal [facility] Lymphocytes (Bld) [#/Vol] 1.32 10*3/uL [facility] Lymphocytes/100 WBC (Bld) 16.1 % [facility] MCH (RBC) [Entitic mass] 30.5 pg 26.0 - 34.0 pg [facility] MCHC (RBC) [Mass/Vol] 32.8 g/dL 31.0 - 37.0 g/dL [facility] MCV (RBC) [Entitic vol] 92.9 fL 80.0 - 100.0 fL [facility] Monocytes (Bld) [#/Vol] 0.96 10*3/uL High [facility] Monocytes/100 WBC (Bld) 11.7 % [facility] Neutrophils (Bld) [#/Vol] 5.25 10*3/uL [facility] Neutrophils/100 WBC (Bld) 63.9 % [facility] Nucleated RBC (Bld) [#/Vol] 0.00 10*3/uL [facility] Nucleated RBC/100 WBC (Bld) [Ratio] 0.0 % [facility] Platelet mean volume (Bld) [Entitic vol] 12.4 fL 9.4 - 12.4 fL [facility] Platelets (Bld) [#/Vol] 115 10*3/uL Low [facility] RBC (Bld) [#/Vol] 3.94 10*6/uL Low [facility] WBC (Bld) [#/Vol] 8.22 10*3/uL [facility] eah [facility] Glucose (Bld) [Mass/Vol]on 0 12-01-2023 Glucose [Mass/Vol] 151 mg/dL High 65 - 99 mg/dL [facility] Interpretation and review of laboratory results Abnormal [facility] Glucose [Mass/Vol] 472 mg/dL Critically high 65 - 99 mg/d L [facility] Interpretation and review of laboratory results Abnormal [facility] Glucose [Mass/Vol] 454 mg/dL Critically high 65 - 99 mg/d L [facility] Interpretation and review of laboratory results Abnormal [facility] Glucose [Mass/Vol] 87 mg/dL 65 - 99 mg/dL [facility] Interpretation and review of laboratory results Normal [facility] Magnesium Levelon 12-01-2023 Magnesium [Mass/Vol] 2.1 mg/dL 1.6 - 2 .4 mg/dL [facility] Magnesium [Mass/Vol]on 12-01 Interpretation and review of laboratory results Normal [facility] aPTT Coag (Bld) [Time]Ordere d By: Burton Zendejas on 12-01-2023 Interpretation and review of laboratory results Abnormal [facility] APTTOrdered By: Zoila titus on 11-30-2023 aPTT Coag (Bld) [Time] 35 s High [facility] Basic metabolic 2000 panelon 11-30-2023 Anion gap [Moles/Vol] 9 mmol/L Low 10 - 20 mmol/L [facility] Calcium [Mass/Vol] 8.6 mg/dL 8.4 - 10. 2 mg/dL [facility] Chloride [Moles/Vol] 104 mmol/L 98 - 10 8 mmol/L [facility] Creatinine [Mass/Vol] 1.77 mg/dL High 0.80 - 1.30 mg/dL [facility] [facility] GFR/1.73 sq M.predicted CKD-EPI (S/P/Bld) [Vol rate/Area] 39 Low - PINF [facility] Glucose [Mass/Vol] 322 mg/dL High 65 - 99 mg/dL [facility] HCO3 [Moles/Vol] 29 mmol/L 21 - 32 mmol/L [facility] Interpretation and review of laboratory results Abnormal [facility] Potassium [Moles/Vol] 3.8 mmol/L 3.5 - 5.1 mmol/L [facility] Sodium [Moles/Vol] 138 mmol/L 135 - 145 mmol/L [facility] Urea nitrogen [Mass/Vol] 30 mg/dL High 8 - 25 mg/dL [facility] Urea nitrogen/Creatinine [Mass ratio] 16.9 mg/mg 10.0 - 20.0 [facility] CBC Auto Differentialon 11-03 Basophils (Bld) [#/Vol] 0.08 10*3/uL [facility] Basophils/100 WBC (Bld) 0.9 % [facility] Eosinophils (Bld) [#/Vol] 0.71 10*3/uL High [facility] Eosinophils/100 WBC (Bld) 8.0 % [facility] Erythrocyte distribution width (RBC) [Entitic vol] 13.5 % 11.6 - 14.8 % [facility] Hematocrit (Bld) [Volume fraction] 35.9 % Low 41.0 - 53.0 % [facility] Hemoglobin (Bld) [Mass/Vol] 11.8 g/dL Low 13.5 - 17.5 g/dL [facility] Immature granulocytes (Bld) [#/Vol] 0.03 10*3/uL [facility] Immature granulocytes/100 WBC (Bld) 0.30 % [facility] Interpretation and review of laboratory results Abnormal [facility] Lymphocytes (Bld) [#/Vol] 1.18 10*3/uL [facility] Lymphocytes/100 WBC (Bld) 13.3 % [facility] MCH (RBC) [Entitic mass] 30.5 pg 26.0 - 34.0 pg [facility] MCHC (RBC) [Mass/Vol] 32.9 g/dL 31.0 - 37.0 g/dL [facility] MCV (RBC) [Entitic vol] 92.8 fL 80.0 - 100.0 fL [facility] Monocytes (Bld) [#/Vol] 0.84 10*3/uL [facility] Monocytes/100 WBC (Bld) 9.4 % [facility] Neutrophils (Bld) [#/Vol] 6.05 10*3/uL [facility] Neutrophils/100 WBC (Bld) 68.1 % [facility] Nucleated RBC (Bld) [#/Vol] 0.00 10*3/uL [facility] Nucleated RBC/100 WBC (Bld) [Ratio] 0.0 % [facility] Platelet mean volume (Bld) [Entitic vol] 12.1 fL 9.4 - 12.4 fL [facility] Platelets (Bld) [#/Vol] 120 10*3/uL Low [facility] RBC (Bld) [#/Vol] 3.87 10*6/uL Low [facility] ealt WBC (Bld) [#/Vol] 8.89 10*3/uL [facility] ealth [facility] CT Chest WO contraston 11-30 Chrysallis GE RIS [facility] CT Chest WO contrastOrdered By: Alice Kaminski on 11-30-2023 [facility] Work Phone: Echocardiogram completeon Aortic valve area 2.55[address] [facility] AV mean gradient 3.41587 mmHg [facility] AV peak gradient 6.34189 mmHg [facility] EF 63.3016 % [facility] FUJI SYNAPSE CV [facility] Electrocardiogram, 12-leadon 11-30-2023 Atrial Rate 97 BPM [facility] P [place] 77 degrees [facility] P-R Interval 152 ms [facility] Q-T Interval 376 ms [facility] QRS Duration 76 ms [facility] QTC Calculation (Bezet) 477 ms [facility] R [place] 72 degrees [facility] T [place] 51 degrees [facility] Ventricular Rate 97 BPM [facility] Glucose (Bld) [Mass/Vol]on 0 11-30-2023 Glucose [Mass/Vol] 190 mg/dL High 65 - 99 mg/dL [facility] Interpretation and review of laboratory results Abnormal [facility] Glucose [Mass/Vol] 103 mg/dL High 65 - 99 mg/dL [facility] Interpretation and review of laboratory results Abnormal [facility] Magnesium Levelon 11-30-2023 Magnesium [Mass/Vol] 2.2 mg/dL 1.6 - 2 .4 mg/dL [facility] Magnesium [Mass/Vol]on 11-30 Interpretation and review of laboratory results Normal [facility] No Panel Informationon 11-30 [facility] aPTT Coag (Bld) [Time]Ordere d By: Zoila Ruiz on 11-30-2023 Interpretation and review of laboratory results Abnormal [facility] APTTon 11-29-2023 aPTT Coag (Bld) [Time] 38 s [facility] APTT Heparin Coverageon 11-02 aPTT Coag (Bld) [Time] 98 s High [facility] Interpretation and review of laboratory results Abnormal [facility] APTT Heparin CoverageOrdered By: Tania Escobedo on 11-29-2023 aPTT Coag (Bld) [Time] Critically high [facility] Interpretation and review of laboratory results Abnormal [facility] Bacteria identified Aer cx N om (Sput)Ordered By: Franco Armenta on 11-29-2023 Microscopic observation Gram stain Nom (Sput) Few WBC [facility] Microscopic observation Gram stain Nom (Sput) Few Epithelial Cells [facility] Microscopic observation Gram stain Nom (Sput) Positive [facility] Microscopic observation Gram stain Nom (Sput) Rare Mixed Kyler [facility] Basic metabolic 2000 panelon 11-29-2023 Anion gap [Moles/Vol] 7 mmol/L Low 10 - 20 mmol/L [facility] Calcium [Mass/Vol] 8.4 mg/dL 8.4 - 10. 2 mg/dL [facility] Chloride [Moles/Vol] 106 mmol/L 98 - 10 8 mmol/L [facility] Creatinine [Mass/Vol] 1.91 mg/dL High 0.80 - 1.30 mg/dL [facility] GFR/1.73 sq M.predicted CKD-EPI (S/P/Bld) [Vol rate/Area] 35 Low - PINF [facility] Glucose [Mass/Vol] 234 mg/dL High 65 - 99 mg/dL [facility] HCO3 [Moles/Vol] 28 mmol/L 21 - 32 mmol/L [facility] Interpretation and review of laboratory results Abnormal [facility] Potassium [Moles/Vol] 4.0 mmol/L 3.5 - 5.1 mmol/L [facility] Sodium [Moles/Vol] 137 mmol/L 135 - 145 mmol/L [facility] Urea nitrogen [Mass/Vol] 34 mg/dL High 8 - 25 mg/dL [facility] Urea nitrogen/Creatinine [Mass ratio] 17.8 mg/mg 10.0 - 20.0 [facility] CBC Auto Differentialon 11-02 Basophils (Bld) [#/Vol] 0.10 10*3/uL [facility] Basophils/100 WBC (Bld) 0.9 % [facility] Eosinophils (Bld) [#/Vol] 0.48 10*3/uL [facility] Eosinophils/100 WBC (Bld) 4.4 % [facility] Erythrocyte distribution width (RBC) [Entitic vol] 14.0 % 11.6 - 14.8 % [facility] Hematocrit (Bld) [Volume fraction] 32.8 % Low 41.0 - 53.0 % [facility] Hemoglobin (Bld) [Mass/Vol] 10.7 g/dL Low 13.5 - 17.5 g/dL [facility] Immature granulocytes (Bld) [#/Vol] 0.05 10*3/uL [facility] Immature granulocytes/100 WBC (Bld) 0.50 % [facility] Interpretation and review of laboratory results Abnormal [facility] Lymphocytes (Bld) [#/Vol] 1.92 10*3/uL [facility] Lymphocytes/100 WBC (Bld) 17.7 % [facility] MCH (RBC) [Entitic mass] 30.6 pg 26.0 - 34.0 pg [facility] MCHC (RBC) [Mass/Vol] 32.6 g/dL 31.0 - 37.0 g/dL [facility] MCV (RBC) [Entitic vol] 93.7 fL 80.0 - 100.0 fL [facility] Monocytes (Bld) [#/Vol] 1.02 10*3/uL High [facility] Monocytes/100 WBC (Bld) 9.4 % [facility] Neutrophils (Bld) [#/Vol] 7.26 10*3/uL High [facility] Neutrophils/100 WBC (Bld) 67.1 % [facility] Nucleated RBC (Bld) [#/Vol] 0.00 10*3/uL [facility] Nucleated RBC/100 WBC (Bld) [Ratio] 0.0 % [facility] Platelet mean volume (Bld) [Entitic vol] 12.1 fL 9.4 - 12.4 fL [facility] Platelets (Bld) [#/Vol] 130 10*3/uL Low [facility] RBC (Bld) [#/Vol] 3.50 10*6/uL Low [facility] ealth WBC (Bld) [#/Vol] 10.83 10*3/uL [facility] CT Chest WO contraston 11-29 Radiology Study observation (narrative) [facility] Glucose (Bld) [Mass/Vol]on 0 11-29-2023 Glucose [Mass/Vol] 174 mg/dL High 65 - 99 mg/[facility] Interpretation and review of laboratory results Abnormal [facility] Glucose [Mass/Vol] 266 mg/dL High 65 - 99 mg/dL [facility] oHeal Interpretation and review of laboratory results Abnormal [facility] HbA1c (Bld) [Mass fraction]O rdered By: Lidia Ruff on 11-29-2023 Average glucose Estimated from glycated hemoglobin (Bld) [Mass/Vol] 174 mg/dL High 68 - 114 mg/dL [facility] Interpretation and review of laboratory results Abnormal [facility] Hemoglobin [id number] By: Davina Ruff on 11-29-2023 HbA1c (Bld) [Mass fraction] 7.7 % High 4.0 - 5.6 % [facility] Magnesium Levelon 11-29-2023 Magnesium [Mass/Vol] 2.2 mg/dL 1.6 - 2 .4 mg/dL [facility] Magnesium [Mass/Vol]on 11-29 Interpretation and review of laboratory results Normal [facility] No Panel Informationon 11-29 [facility] Sputum Aerobic CultureOrdere d By: Franco Armenta on 11-29-2023 Bacteria identified Aer cx Nom (Sput) Normal Kyler After 48 Hours [facility] aPTT Coag (Bld) [Time]on Interpretation and review of laboratory results Abnormal [facility] APTTon 11-28-2023 aPTT Coag (Bld) [Time] 102 s High [facility] Basic metabolic 2000 panelon 11-28-2023 Anion gap [Moles/Vol] 13 mmol/L 10 - 20 mmol/L [facility] Calcium [Mass/Vol] 9.0 mg/dL 8.4 - 10. 2 mg/dL [facility] Chloride [Moles/Vol] 110 mmol/L High 98 - 10 8 mmol/L [facility] Creatinine [Mass/Vol] 1.99 mg/dL High 0.80 - 1.30 mg/dL [facility] GFR/1.73 sq M.predicted CKD-EPI (S/P/Bld) [Vol rate/Area] 34 Low - PINF [facility] Glucose [Mass/Vol] 183 mg/dL High 65 - 99 mg/dL [facility] HCO3 [Moles/Vol] 23 mmol/L 21 - 32 mmol/L [facility] Interpretation and review of laboratory results Abnormal [facility] Potassium [Moles/Vol] 4.3 mmol/L 3.5 - 5.1 mmol/L [facility] Sodium [Moles/Vol] 142 mmol/L 135 - 145 mmol/L [facility] Urea nitrogen [Mass/Vol] 33 mg/dL High 8 - 25 mg/dL [facility] Urea nitrogen/Creatinine [Mass ratio] 16.6 mg/mg 10.0 - 20.0 [facility] Anion gap [Moles/Vol] 9 mmol/L Low 10 - 20 mmol/L [facility] Calcium [Mass/Vol] 8.8 mg/dL 8.4 - 10. 2 mg/dL [facility] Chloride [Moles/Vol] 111 mmol/L High 98 - 10 8 mmol/L [facility] Creatinine [Mass/Vol] 2.03 mg/dL High 0.80 - 1.30 mg/dL [facility] GFR/1.73 sq M.predicted CKD-EPI (S/P/Bld) [Vol rate/Area] 33 Low - PINF [facility] Glucose [Mass/Vol] 160 mg/dL High 65 - 99 mg/dL [facility] HCO3 [Moles/Vol] 27 mmol/L 21 - 32 mmol/L [facility] Interpretation and review of laboratory results Abnormal [facility] Potassium [Moles/Vol] 4.3 mmol/L 3.5 - 5.1 mmol/L [facility] Sodium [Moles/Vol] 143 mmol/L 135 - 145 mmol/L [facility] Urea nitrogen [Mass/Vol] 34 mg/dL High 8 - 25 mg/dL [facility] Urea nitrogen/Creatinine [Mass ratio] 16.7 mg/mg 10.0 - 20.0 [facility] Anion gap [Moles/Vol] 10 mmol/L 10 - 20 mmol/L [facility] Calcium [Mass/Vol] 8.7 mg/dL 8.4 - 10. 2 mg/dL [facility] Chloride [Moles/Vol] 112 mmol/L High 98 - 10 8 mmol/L [facility] Creatinine [Mass/Vol] 2.03 mg/dL High 0.80 - 1.30 mg/dL [facility] GFR/1.73 sq M.predicted CKD-EPI (S/P/Bld) [Vol rate/Area] 33 Low - PINF [facility] Glucose [Mass/Vol] 119 mg/dL High 65 - 99 mg/dL [facility] HCO3 [Moles/Vol] 24 mmol/L 21 - 32 mmol/L [facility] Interpretation and review of laboratory results Abnormal [facility] Potassium [Moles/Vol] 3.9 mmol/L 3.5 - 5.1 mmol/L [facility] Sodium [Moles/Vol] 142 mmol/L 135 - 145 mmol/L [facility] Urea nitrogen [Mass/Vol] 35 mg/dL High 8 - 25 mg/dL [facility] Urea nitrogen/Creatinine [Mass ratio] 17.2 mg/mg 10.0 - 20.0 [facility] Beta hydroxybutyrate [Moles/ Vol]on 11-28-2023 Interpretation and review of laboratory results Abnormal [facility] Interpretation and review of laboratory results Abnormal [facility] Beta-Hydroxybutyrateon 11-28 Beta hydroxybutyrate [Moles/Vol] 0.8 mmol/L High 0.0 - 0.3 mmol/L [facility] Beta hydroxybutyrate [Moles/Vol] 0.4 mmol/L High 0.0 - 0.3 mmol/L [facility] Beta hydroxybutyrate [Moles/Vol] 0.6 mmol/L High 0.0 - 0.3 mmol/L [facility] CBC Auto Differentialon 11-02 Basophils (Bld) [#/Vol] 0.07 10*3/uL [facility] Basophils/100 WBC (Bld) 0.5 % [facility] Eosinophils (Bld) [#/Vol] 0.09 10*3/uL [facility] Eosinophils/100 WBC (Bld) 0.6 % [facility] Erythrocyte distribution width (RBC) [Entitic vol] 14.3 % 11.6 - 14.8 % [facility] Hematocrit (Bld) [Volume fraction] 33.6 % Low 41.0 - 53.0 % [facility] Hemoglobin (Bld) [Mass/Vol] 10.8 g/dL Low 13.5 - 17.5 g/dL [facility] Immature granulocytes (Bld) [#/Vol] 0.05 10*3/uL [facility] Immature granulocytes/100 WBC (Bld) 0.40 % [facility] Interpretation and review of laboratory results Abnormal [facility] Lymphocytes (Bld) [#/Vol] 2.69 10*3/uL [facility] Lymphocytes/100 WBC (Bld) 18.9 % [facility] MCH (RBC) [Entitic mass] 30.4 pg 26.0 - 34.0 pg [facility] MCHC (RBC) [Mass/Vol] 32.1 g/dL 31.0 - 37.0 g/dL [facility] MCV (RBC) [Entitic vol] 94.6 fL 80.0 - 100.0 fL [facility] Monocytes (Bld) [#/Vol] 1.26 10*3/uL High [facility] Monocytes/100 WBC (Bld) 8.9 % [facility] Neutrophils (Bld) [#/Vol] 10.06 10*3/uL High [facility] Neutrophils/100 WBC (Bld) 70.7 % [facility] Nucleated RBC (Bld) [#/Vol] 0.00 10*3/uL [facility] Nucleated RBC/100 WBC (Bld) [Ratio] 0.0 % [facility] Platelet mean volume (Bld) [Entitic vol] 11.9 fL 9.4 - 12.4 fL [facility] Platelets (Bld) [#/Vol] 151 10*3/uL [facility] RBC (Bld) [#/Vol] 3.55 10*6/uL Low [facility] ealth WBC (Bld) [#/Vol] 14.22 10*3/uL High [facility] CRP [Mass/Vol]on 11-28-2023 Interpretation and review of laboratory results Abnormal [facility] CRP, Inflammationon 11-28-19 CRP [Mass/Vol] 11.6 mg/L High NINF - 10.0 mg/L [facility] D-Dimer, Quantitativeon 11-02 Fibrin D-dimer FEU (PPP) [Mass/Vol] 1.32 High [facility] Interpretation and review of laboratory results Abnormal [facility] Glucose (Bld) [Mass/Vol]on 0 11-28-2023 Glucose [Mass/Vol] 222 mg/dL High 65 - 99 mg/dL [facility] Interpretation and review of laboratory results Abnormal [facility] Glucose [Mass/Vol] 182 mg/dL High 65 - 99 mg/dL [facility] Interpretation and review of laboratory results Abnormal [facility] Glucose [Mass/Vol] 286 mg/dL High 65 - 99 mg/dL [facility] Interpretation and review of laboratory results Abnormal [facility] Glucose [Mass/Vol] 209 mg/dL High 65 - 99 mg/dL [facility] Interpretation and review of laboratory results Abnormal [facility] Glucose [Mass/Vol] 167 mg/dL High 65 - 99 mg/dL [facility] Interpretation and review of laboratory results Abnormal [facility] LDHon 11-28-2023 LDH Lactate to pyruvate reaction [Catalytic activity/Vol] 299 U/L High 100 - 250 U/L [facility] Magnesium Levelon 11-28-2023 Magnesium [Mass/Vol] 2.5 mg/dL High 1.6 - 2 .4 mg/dL [facility] Magnesium [Mass/Vol] 2.6 mg/dL High 1.6 - 2 .4 mg/dL [facility] Magnesium [Mass/Vol] 2.2 mg/dL 1.6 - 2 .4 mg/dL [facility] Magnesium [Mass/Vol]on 11-28 Interpretation and review of laboratory results Abnormal [facility] Interpretation and review of laboratory results Abnormal [facility] Interpretation and review of laboratory results Normal [facility] No Panel Informationon 11-28 Interpretation and review of laboratory results Abnormal [facility] Phosphate [Mass/Vol]on 11-28 Interpretation and review of laboratory results Normal [facility] Interpretation and review of laboratory results Abnormal [facility] Interpretation and review of laboratory results Abnormal [facility] Phosphoruson 11-28-2023 Phosphate [Mass/Vol] 3.6 mg/dL 2.3 - 3 .7 mg/dL [facility] Phosphate [Mass/Vol] 3.8 mg/dL High 2.3 - 3 .7 mg/dL [facility] Phosphate [Mass/Vol] 3.8 mg/dL High 2.3 - 3 .7 mg/dL [facility] aPTT Coag (Bld) [Time]on Interpretation and review of laboratory results Abnormal [facility] APTTOrdered By: Becky Mercado on 11-27-2023 aPTT Coag (Bld) [Time] 78 s High [facility] APTTOrdered By: Anjali Hartmann on 11-27-2023 aPTT Coag (Bld) [Time] 66 s High [facility] APTT Heparin CoverageOrdered By: Yesenia Cardona on 11-27-2023 aPTT Coag (Bld) [Time] 87 s High [facility] Interpretation and review of laboratory results Abnormal [facility] Basic metabolic 2000 panelon 11-27-2023 Anion gap [Moles/Vol] 9 mmol/L Low 10 - 20 mmol/L [facility] Calcium [Mass/Vol] 8.7 mg/dL 8.4 - 10. 2 mg/dL [facility] Chloride [Moles/Vol] 113 mmol/L High 98 - 10 8 mmol/L [facility] Creatinine [Mass/Vol] 2.24 mg/dL High 0.80 - 1.30 mg/dL [facility] GFR/1.73 sq M.predicted CKD-EPI (S/P/Bld) [Vol rate/Area] 29 Low - PINF [facility] Glucose [Mass/Vol] 168 mg/dL High 65 - 99 mg/dL [facility] HCO3 [Moles/Vol] 25 mmol/L 21 - 32 mmol/L [facility] Interpretation and review of laboratory results Abnormal [facility] Potassium [Moles/Vol] 3.7 mmol/L 3.5 - 5.1 mmol/L [facility] Sodium [Moles/Vol] 143 mmol/L 135 - 145 mmol/L [facility] Urea nitrogen [Mass/Vol] 37 mg/dL High 8 - 25 mg/dL [facility] Urea nitrogen/Creatinine [Mass ratio] 16.5 mg/mg 10.0 - 20.0 [facility] Anion gap [Moles/Vol] 9 mmol/L Low 10 - 20 mmol/L [facility] Calcium [Mass/Vol] 9.0 mg/dL 8.4 - 10. 2 mg/dL [facility] Chloride [Moles/Vol] 113 mmol/L High 98 - 10 8 mmol/L [facility] Creatinine [Mass/Vol] 2.24 mg/dL High 0.80 - 1.30 mg/dL [facility] GFR/1.73 sq M.predicted CKD-EPI (S/P/Bld) [Vol rate/Area] 29 Low - PINF [facility] Glucose [Mass/Vol] 153 mg/dL High 65 - 99 mg/dL [facility] [Moles/Vol] 24 mmol/L 21 - 32 mmol/L [facility] Interpretation and review of laboratory results Abnormal [facility] Potassium [Moles/Vol] 4.0 mmol/L 3.5 - 5.1 mmol/L [facility] Sodium [Moles/Vol] 142 mmol/L 135 - 145 mmol/L [facility] Urea nitrogen [Mass/Vol] 39 mg/dL High 8 - 25 mg/dL [facility] Urea nitrogen/Creatinine [Mass ratio] 17.4 mg/mg 10.0 - 20.0 [facility] Anion gap [Moles/Vol] 13 mmol/L 10 - 20 mmol/L [facility] Calcium [Mass/Vol] 9.3 mg/dL 8.4 - 10. 2 mg/dL [facility] Chloride [Moles/Vol] 112 mmol/L High 98 - 10 8 mmol/L [facility] Creatinine [Mass/Vol] 2.26 mg/dL High 0.80 - 1.30 mg/dL [facility] GFR/1.73 sq M.predicted CKD-EPI (S/P/Bld) [Vol rate/Area] 29 Low - PINF [facility] Glucose [Mass/Vol] 114 mg/dL High 65 - 99 mg/dL [facility] o[facility]al HCO3 [Moles/Vol] 23 mmol/L 21 - 32 mmol/L [facility] Interpretation and review of laboratory results Abnormal [facility] Potassium [Moles/Vol] 3.7 mmol/L 3.5 - 5.1 mmol/L [facility] Sodium [Moles/Vol] 144 mmol/L 135 - 145 mmol/L [facility] Urea nitrogen [Mass/Vol] 42 mg/dL High 8 - 25 mg/dL [facility] Urea nitrogen/Creatinine [Mass ratio] 18.6 mg/mg 10.0 - 20.0 [facility] Anion gap [Moles/Vol] 13 mmol/L 10 - 20 mmol/L [facility] Calcium [Mass/Vol] 9.2 mg/dL 8.4 - 10. 2 mg/dL [facility] Chloride [Moles/Vol] 111 mmol/L High 98 - 10 8 mmol/L [facility] Creatinine [Mass/Vol] 2.35 mg/dL High 0.80 - 1.30 mg/dL [facility] GFR/1.73 sq M.predicted CKD-EPI (S/P/Bld) [Vol rate/Area] 27 Low - PINF [facility] Glucose [Mass/Vol] 340 mg/dL High 65 - 99 mg/dL [facility] HCO3 [Moles/Vol] 21 mmol/L 21 - 32 mmol/L [facility] Interpretation and review of laboratory results Abnormal [facility] Potassium [Moles/Vol] 3.4 mmol/L Low 3.5 - 5.1 mmol/L [facility] Sodium [Moles/Vol] 142 mmol/L 135 - 145 mmol/L [facility] Urea nitrogen [Mass/Vol] 42 mg/dL High 8 - 25 mg/dL [facility] Urea nitrogen/Creatinine [Mass ratio] 17.9 mg/mg 10.0 - 20.0 [facility] Basic metabolic 2000 panelOr dered By: Moody Hughes on 11-27-2023 Anion gap [Moles/Vol] 13 mmol/L 10 - 20 mmol/L [facility] Calcium [Mass/Vol] 8.9 mg/dL 8.4 - 10. 2 mg/dL [facility] Chloride [Moles/Vol] 107 mmol/L 98 - 10 8 mmol/L [facility] Creatinine [Mass/Vol] 2.24 mg/dL High 0.80 - 1.30 mg/dL [facility] GFR/1.73 sq M.predicted CKD-EPI (S/P/Bld) [Vol rate/Area] 29 Low - PINF [facility] Glucose [Mass/Vol] 523 mg/dL Critically high 65 - 99 mg/d L [facility] HCO3 [Moles/Vol] 21 mmol/L 21 - 32 mmol/L [facility] Interpretation and review of laboratory results Abnormal [facility] Potassium [Moles/Vol] 4.6 mmol/L 3.5 - 5.1 mmol/L [facility] Sodium [Moles/Vol] 136 mmol/L 135 - 145 mmol/L [facility] Urea nitrogen [Mass/Vol] 42 mg/dL High 8 - 25 mg/dL [facility] Urea nitrogen/Creatinine [Mass ratio] 18.8 mg/mg 10.0 - 20.0 [facility] Beta hydroxybutyrate [Moles/ Vol]on 11-27-2023 Interpretation and review of laboratory results Normal [facility] Interpretation and review of laboratory results Normal [facility] Interpretation and review of laboratory results Normal [facility] Interpretation and review of laboratory results Normal [facility] Beta-Hydroxybutyrateon 11-27 Beta hydroxybutyrate [Moles/Vol] mmol/L 0.0 - 0.3 mmol/L [facility] Beta hydroxybutyrate [Moles/Vol] 0.2 mmol/L 0.0 - 0.3 mmol/L [facility] Beta hydroxybutyrate [Moles/Vol] mmol/L 0.0 - 0.3 mmol/L [facility] Beta hydroxybutyrate [Moles/Vol] 0.2 mmol/L 0.0 - 0.3 mmol/L [facility] Beta hydroxybutyrate [Moles/Vol] 1.9 mmol/L High 0.0 - 0.3 mmol/L [facility] CBC Auto Differentialon 11-02 Basophils (Bld) [#/Vol] 0.04 10*3/uL [facility] Basophils/100 WBC (Bld) 0.2 % [facility] Eosinophils (Bld) [#/Vol] 0.00 10*3/uL [facility] Eosinophils/100 WBC (Bld) 0.0 % [facility] Erythrocyte distribution width (RBC) [Entitic vol] 14.0 % 11.6 - 14.8 % [facility] Hematocrit (Bld) [Volume fraction] 34.0 % Low 41.0 - 53.0 % [facility] Hemoglobin (Bld) [Mass/Vol] 11.1 g/dL Low 13.5 - 17.5 g/dL [facility] Immature granulocytes (Bld) [#/Vol] 0.11 10*3/uL [facility] Immature granulocytes/100 WBC (Bld) 0.50 % [facility] Interpretation and review of laboratory results Abnormal [facility] Lymphocytes (Bld) [#/Vol] 0.91 10*3/uL [facility] Lymphocytes/100 WBC (Bld) 3.8 % [facility] MCH (RBC) [Entitic mass] 30.9 pg 26.0 - 34.0 pg [facility] MCHC (RBC) [Mass/Vol] 32.6 g/dL 31.0 - 37.0 g/dL [facility] MCV (RBC) [Entitic vol] 94.7 fL 80.0 - 100.0 fL [facility] Monocytes (Bld) [#/Vol] 1.21 10*3/uL High [facility] Monocytes/100 WBC (Bld) 5.1 % [facility] Neutrophils (Bld) [#/Vol] 21.42 10*3/uL High [facility] Neutrophils/100 WBC (Bld) 90.4 % [facility] Nucleated RBC (Bld) [#/Vol] 0.00 10*3/uL [facility] Nucleated RBC/100 WBC (Bld) [Ratio] 0.0 % [facility] Platelet mean volume (Bld) [Entitic vol] 11.9 fL 9.4 - 12.4 fL [facility] Platelets (Bld) [#/Vol] 220 10*3/uL [facility] RBC (Bld) [#/Vol] 3.59 10*6/uL Low [facility] WBC (Bld) [#/Vol] 23.69 10*3/uL [facility] CRP [Mass/Vol]on 11-27-2023 Interpretation and review of laboratory results Normal [facility] CRP, Inflammationon 11-27-19 CRP [Mass/Vol] mg/L NINF - 10.0 mg/L [facility] Clostridium difficile Testin gOrdered By: Nina Martinez on 11-27-2023 C. difficile Interpretation Negative [facility] Specimen Acceptability Acceptable [facility] ESR Westergren method (Bld) [Velocity]on 11-27-2023 ESR (Bld) [Velocity] 21 mm/h [facility] Interpretation and review of laboratory results Abnormal [facility] Glucose (Bld) [Mass/Vol]on 0 11-27-2023 Glucose [Mass/Vol] 85 mg/dL 65 - 99 mg/dL [facility] Interpretation and review of laboratory results Normal [facility] Glucose [Mass/Vol] 106 mg/dL High 65 - 99 mg/dL [facility] Interpretation and review of laboratory results Abnormal [facility] Glucose [Mass/Vol] 179 mg/dL High 65 - 99 mg/dL [facility] Interpretation and review of laboratory results Abnormal [facility] Glucose [Mass/Vol] 255 mg/dL High 65 - 99 mg/dL [facility] Interpretation and review of laboratory results Abnormal [facility] Glucose [Mass/Vol] 252 mg/dL High 65 - 99 mg/dL [facility] Interpretation and review of laboratory results Abnormal [facility] Glucose [Mass/Vol] 145 mg/dL High 65 - 99 mg/dL [facility] Interpretation and review of laboratory results Abnormal [facility] Glucose [Mass/Vol] 155 mg/dL High 65 - 99 mg/dL [facility] Interpretation and review of laboratory results Abnormal [facility] Glucose [Mass/Vol] 155 mg/dL High 65 - 99 mg/dL [facility] Interpretation and review of laboratory results Abnormal [facility] Glucose [Mass/Vol] 143 mg/dL High 65 - 99 mg/dL [facility] Interpretation and review of laboratory results Abnormal [facility] Glucose [Mass/Vol] 123 mg/dL High 65 - 99 mg/dL [facility] Interpretation and review of laboratory results Abnormal [facility] Glucose [Mass/Vol] 132 mg/dL High 65 - 99 mg/dL [facility] Interpretation and review of laboratory results Abnormal [facility] Glucose [Mass/Vol] 202 mg/dL High 65 - 99 mg/dL [facility] Interpretation and review of laboratory results Abnormal [facility] Glucose [Mass/Vol] 318 mg/dL High 65 - 99 mg/dL [facility] Interpretation and review of laboratory results Abnormal [facility] Glucose [Mass/Vol] 365 mg/dL High 65 - 99 mg/dL [facility] Interpretation and review of laboratory results Abnormal [facility] Glucose [Mass/Vol] 453 mg/dL Critically high 65 - 99 mg/d L [facility] Interpretation and review of laboratory results Abnormal [facility] Glucose [Mass/Vol] mg/dL Critically high 65 - 99 mg/d L [facility] Interpretation and review of laboratory results Abnormal [facility] Glucose [Mass/Vol] mg/dL Critically high 65 - 99 mg/d L [facility] Interpretation and review of laboratory results Abnormal [facility] Glucose [Mass/Vol] 498 mg/dL Critically high 65 - 99 mg/d L [facility] Interpretation and review of laboratory results Abnormal [facility] Green Topon 11-27-2023 Extra Tube Hold for add-ons. [facility] Comment on above: Auto resulted. [facility] HbA1c (Bld) [Mass fraction]O rdered By: Brent Carrillo on 11-27-2023 Average glucose Estimated from glycated hemoglobin (Bld) [Mass/Vol] 169 mg/dL High 68 - 114 mg/dL [facility] Interpretation and review of laboratory results Abnormal [facility] Hemoglobin [id number] By: Damaris Carrillo on 11-27-2023 HbA1c (Bld) [Mass fraction] 7.5 % High 4.0 - 5.6 % [facility] Hepatic function 2000 panelo n 11-27-2023 Albumin [Mass/Vol] 3.4 g/dL 3.2 - 5.2 g/dL [facility] ALP [Catalytic activity/Vol] 97 U/L 40 - 150 U/L [facility] ALT [Catalytic activity/Vol] 47 U/L 14 - 65 U/L [facility] AST [Catalytic activity/Vol] 74 U/L High 0-50 U/L [facility] Bilirubin [Mass/Vol] 0.7 mg/dL 0.0 - 1 .3 mg/dL [facility] Bilirubin.conjugated [Mass/Vol] 0.2 mg/dL 0.0 - 0.4 mg/dL [facility] Protein [Mass/Vol] 6.3 g/dL 6.0 - 8.0 g/dL [facility] Influenza virus A and B RNA and SARS-CoV-2 (COVID-19) N gene panel ALICE+probe (Resp)Ordered By: Esthela Albright on 11-27-2023 FLUAV RNA ALICE+probe Ql (Unsp spec) Not detected Not Detected [facility] FLUBV RNA ALICE+probe Ql (Unsp spec) Not detected Not Detected [facility] Interpretation and review of laboratory results Abnormal [facility] SARS-CoV-2 (COVID-19) RNA ALICE+probe Ql (Resp) Detected Abnormal Not Detected [facility] Lactate [Moles/Vol]on 2023 Interpretation and review of laboratory results Abnormal [facility] Interpretation and review of laboratory results Normal [facility] Lactic Acid, Plasmaon 2023 Lactate [Moles/Vol] 2.8 mmol/L High 0.6 - 2. 0 mmol/L [facility] Lactate [Moles/Vol] 2.0 mmol/L 0.6 - 2. 0 mmol/L [facility] Legionella Antigen, Urineon 11-27-2023 Interpretation and review of laboratory results Normal [facility] L. pneumophila Ag Ql (U) Negative Negative for Legionella antigen [facility] Lipid 1996 panelon Cholesterol [Mass/Vol] 130 mg/dL 100 - 199 mg/dL [facility] Cholesterol in HDL [Mass/Vol] 56 mg/dL 40 - 59 mg/dL [facility] Cholesterol in LDL [Mass/Vol] 61 mg/dL 10 - 130 mg/dL [facility] Cholesterol non HDL [Mass/Vol] 74 mg/dL [facility] Cholesterol.total/Chol esterol in HDL [Mass ratio] 2.3 {ratio} ratio [facility] Triglyceride [Mass/Vol] 67 mg/dL 30 - 150 mg/dL [facility] MRSA DNA Amplified Probeon 0 11-27-2023 MRSA DNA ALICE+probe Ql (Unsp spec) Negative Not Detected, MRSA NEGATIVE [facility] MRSA DNA ALICE+probe Ql (Unsp spec)on 11-27-2023 Interpretation and review of laboratory results Normal [facility] Magnesium Levelon 11-27-2023 Magnesium [Mass/Vol] 1.9 mg/dL 1.6 - 2 .4 mg/dL [facility] Magnesium [Mass/Vol] 2.2 mg/dL 1.6 - 2 .4 mg/dL [facility] Magnesium [Mass/Vol] 2.1 mg/dL 1.6 - 2 .4 mg/dL [facility] Magnesium [Mass/Vol] 2.1 mg/dL 1.6 - 2 .4 mg/dL [facility] Magnesium [Mass/Vol] 2.2 mg/dL 1.6 - 2 .4 mg/dL [facility] Magnesium [Mass/Vol]on 11-27 Interpretation and review of laboratory results Normal [facility] Interpretation and review of laboratory results Normal [facility] Interpretation and review of laboratory results Normal [facility] Interpretation and review of laboratory results Normal [facility] Interpretation and review of laboratory results Normal [facility] NT Pro BNPon 11-27-2023 Natriuretic peptide.B prohormone N-Terminal [Mass/Vol] 61451 pg/mL High 0 - 300 pg/mL [facility] Natriuretic peptide.B prohor katja N-Terminal [Mass/Vol]on 11-27-2023 Interpretation and review of laboratory results Abnormal [facility] No Panel Informationon 11-27 [facility] Interpretation and review of laboratory results Abnormal [facility] Obtain venous blood gases an d performon 11-27-2023 [facility] POC Arterial Blood Gas Panel -Pulmon 11-27-2023 Alveolar-arterial oxygen Partial pressure difference 85.4 mm Hg [facility] Base excess Calc (Bld) [Moles/Vol] -7.1000 mmol/L Low -2.0 - 2.0 [facility] Calcium.ionized [Mass/Vol] 4.7 mg/dL 4.5 - 5.3 mg/dL [facility] Carboxyhemoglobin (BldA) [Mass fraction] 1.3 NINF [facility] Chloride [Moles/Vol] 107 mmol/L 98 - 10 8 mmol/L [facility] CO2 (Bld) [Partial pressure] 31.7 mm[Hg] Low [facility] Glucose post fast [Mass/Vol] 543 mg/dL Critically high 65 - 99 mg/dL [facility] HCO3 (Bld) [Moles/Vol] 17.5 mmol/L Low 22.0 - 26.0 mmol/L [facility] Hematocrit (BldA) [Volume fraction] 37.9 % Low 41.0 - 53.0 % [facility] Hemoglobin (Bld) [Mass/Vol] 12.4 g/dL Low 13.5 - 17.5 g/dL [facility] Inhaled oxygen concentration 30 % [facility] Interpretation and review of laboratory results Abnormal [facility] Lactate [Moles/Vol] 1.7 mmol/L 0.6 - 2. 0 mmol/L [facility] Methemoglobin (BldA) [Mass fraction] % 0.0 - 2.0 % [facility] Oxygen (Bld) [Partial pressure] 84 mm[Hg] [facility] Oxyhemoglobin (BldA) [Mass fraction] 94.5 % 94.0 - 98.0 % [facility] pH (Bld) 7.35 [pH] 7.35 - 7.45 [facility] Potassium [Moles/Vol] 4.6 mmol/L 3.5 - 5.1 mmol/L [facility] Sodium [Moles/Vol] 138 mmol/L 135 - 145 mmol/L [facility] Specimen source Nom (Unsp spec) Radial, right [facility] POC Venous Blood Gas Panel-P [facility] 11-27-2023 Base excess Calc (BldV) [Moles/Vol] -8.4000 mmol/L Low -2.0 - 2.0 [facility] Calcium.ionized [Mass/Vol] 4.4 mg/dL Low 4.5 - 5.3 mg/dL [facility] Carboxyhemoglobin (BldA) [Mass fraction] 2.9 High [facility] Chloride [Moles/Vol] 108 mmol/L 98 - 10 8 mmol/L [facility] CO2 (BldV) [Partial pressure] 26.6 mm[Hg] Low [facility] Glucose post fast [Mass/Vol] 544 mg/dL Critically high 65 - 99 mg/dL [facility] HCO3 (Bld) [Moles/Vol] 15.4 mmol/L Low 24.0 - 28.0 mmol/L [facility] Hematocrit (BldA) [Volume fraction] 36.5 % Low 41.0 - 53.0 % [facility] Hemoglobin (Bld) [Mass/Vol] 11.9 g/dL Low 13.5 - 17.5 g/dL [facility] Inhaled oxygen concentration 30 % [facility] Interpretation and review of laboratory results Abnormal [facility] Lactate [Moles/Vol] 2.5 mmol/L High 0.6 - 2. 0 mmol/L [facility] Methemoglobin (BldA) [Mass fraction] % 0.0 - 2.0 % [facility] Oxygen (BldV) [Partial pressure] 140 mm[Hg] High [facility] Oxygen saturation in Venous blood 99.4 % High 40.0 - 70.0 % [facility] Oxyhemoglobin (BldA) [Mass fraction] 96.3 % No established reference range [facility] pH (BldV) 7.37 [pH] 7.32 - 7.42 [facility] Potassium [Moles/Vol] 4.0 mmol/L 3.5 - 5.1 mmol/L [facility] Sodium [Moles/Vol] 138 mmol/L 135 - 145 mmol/L [facility] Specimen source Nom (Unsp spec) Not specified [facility] Base excess Calc (BldV) [Moles/Vol] -5.8000 mmol/L Low -2.0 - 2.0 [facility] Calcium.ionized [Mass/Vol] 4.7 mg/dL 4.5 - 5.3 mg/dL [facility] Carboxyhemoglobin (BldA) [Mass fraction] 2.9 High [facility] Chloride [Moles/Vol] 107 mmol/L 98 - 10 8 mmol/L [facility] CO2 (BldV) [Partial pressure] 34.1 mm[Hg] Low [facility] Glucose post fast [Mass/Vol] 493 mg/dL Critically high 65 - 99 mg/dL [facility] HCO3 (Bld) [Moles/Vol] 19.0 mmol/L Low 24.0 - 28.0 mmol/L [facility] Hematocrit (BldA) [Volume fraction] 35.4 % Low 41.0 - 53.0 % [facility] Hemoglobin (Bld) [Mass/Vol] 11.5 g/dL Low 13.5 - 17.5 g/dL [facility] Inhaled oxygen concentration 28 % [facility] Inhaled oxygen flow rate 2 L/min [facility] Interpretation and review of laboratory results Abnormal [facility] Lactate [Moles/Vol] 1.8 mmol/L 0.6 - 2. 0 mmol/L [facility] Methemoglobin (BldA) [Mass fraction] % 0.0 - 2.0 % [facility] Oxygen (BldV) [Partial pressure] 63 mm[Hg] High [facility] Oxygen saturation in Venous blood 91.7 % High 40.0 - 70.0 % [facility] Oxyhemoglobin (BldA) [Mass fraction] 88.7 % No established reference range [facility] pH (BldV) 7.36 [pH] 7.32 - 7.42 [facility] Potassium [Moles/Vol] 4.7 mmol/L 3.5 - 5.1 mmol/L [facility] Sodium [Moles/Vol] 138 mmol/L 135 - 145 mmol/L [facility] Specimen source Nom (Unsp spec) Not specified [facility] Phosphate [Mass/Vol]on 11-27 Interpretation and review of laboratory results Normal [facility] Interpretation and review of laboratory results Abnormal [facility] Interpretation and review of laboratory results Normal [facility] Interpretation and review of laboratory results Normal [facility] Interpretation and review of laboratory results Abnormal [facility] Phosphoruson 11-27-2023 Phosphate [Mass/Vol] 2.6 mg/dL 2.3 - 3 .7 mg/dL [facility] Phosphate [Mass/Vol] 4.1 mg/dL High 2.3 - 3 .7 mg/dL [facility] Phosphate [Mass/Vol] 3.0 mg/dL 2.3 - 3 .7 mg/dL [facility] Phosphate [Mass/Vol] 2.3 mg/dL 2.3 - 3 .7 mg/dL [facility] Phosphate [Mass/Vol] 4.1 mg/dL High 2.3 - 3 .7 mg/dL [facility] Reflex Lactic Acid, Plasmaon 11-27-2023 Interpretation and review of laboratory results Normal [facility] Lactate [Moles/Vol] 2.0 mmol/L 0.6 - 2. 0 mmol/L [facility] Interpretation and review of laboratory results Abnormal [facility] Lactate [Moles/Vol] 2.8 mmol/L High 0.6 - 2. 0 mmol/L [facility] Respiratory pathogens DNA an d RNA panel ALICE+non-probe (Nph)Ordered By: Melania Freeman on 11-27-2023 Adenovirus DNA ALICE+non-probe Ql (Nph) Not detected Not Detected [facility] B. parapertussis [id number] DNA ALICE+non-probe Ql (Nph) Not detected [facility]ed [facility] B. pertussis toxin promoter region ALICE+non-probe Ql (Nph) Not detected Not Detected [facility] C. pneumoniae DNA ALICE+non-probe Ql (Nph) Not detected Not Detected [facility] FLUAV RNA ALICE+non-probe Ql (Nph) Not detected Not Detected [facility] FLUBV RNA ALICE+non-probe Ql (Nph) Not detected Not Detected [facility] HCoV 229E RNA ALICE+non-probe Ql (Nph) Not detected Not Detected [facility] HCoV [id number] RNA ALICE+non-probe Ql (Nph) Not detected Not Detected [facility] HCoV [id number] RNA ALICE+non-probe Ql (Nph) Not detected Not Detected [facility] HCoV OC43 RNA ALICE+non-probe Ql (Nph) Not detected Not Detected [facility] hMPV RNA ALICE+non-probe Ql (Nph) Not detected Not Detected [facility] Interpretation and review of laboratory results Normal [facility] M. pneumoniae DNA ALICE+non-probe Ql (Nph) Not detected Not Detected [facility] Parainfluenza virus 1 RNA ALICE+non-probe Ql (Nph) Not detected Not Detected [facility] Parainfluenza virus 2 RNA ALICE+non-probe Ql (Nph) Not detected Not Detected [facility] Parainfluenza virus 3 RNA ALICE+non-probe Ql (Nph) Not detected Not Detected [facility] Parainfluenza virus 4 RNA ALICE+non-probe Ql (Nph) Not detected Not Detected [facility] Rhinovirus+Enterovirus RNA ALICE+non-probe Ql (Nph) Not detected Not Detected [facility] RSV RNA ALICE+non-probe Ql (Nph) Not detected Not Detected [facility] SARS-CoV-2 (COVID-19) RNA ALICE+non-probe Ql (Nph) Not detected Not Detected [facility] S. pneumoniae Urine AntigenO rdered By: Maxine Hill on 11-27-2023 Interpretation and review of laboratory results Normal [facility] S. pneumoniae Ag Ql (U) Negative Presumptive Negative for Pneumococcal pneumoniae [facility] TSH DL <= 0.005 mIU/L Qnon 0 11-27-2023 Interpretation and review of laboratory results Normal [facility] TSH Qn 0.35 m[IU]/L [facility] Tropinin I.cardiac panel Hig h sensitivity methodon 11-27-2023 Interpretation and review of laboratory results Abnormal [facility] Less than 99th percentile of normal range [...] performed using a different testing methodology at [facility] than at other [facility]. Direct result comparisons should only be made within the same method. [facility] Troponin I, High Sensitivity on 11-27-2023 Tropinin I.cardiac panel High sensitivity method 6445 ng/L Critically high 0 - 20 ng/L [facility] Comment on above: Previous result verj luis fied on 11/26/2023 2158 on specimen/case [id number] called with component [facility] for procedure Troponin I, High Sensitivity with value 2,361 ng/L. Troponin x 2 (Now and Repeat in 3 hours)Ordered By: Stephanie Carlton on 11-27-2023 Delta % Troponin I -6 % <20% of Baseline Troponin [facility] Troponin I Delta Change Probable non-acute cardiac injury or late presentation of acute injury. [facility] Interpretation and review of laboratory results Abnormal [facility] Troponin I 9349 ng/L Critically high NINF - 59 ng/L [facility] Troponin x 2 (Now and Repeat in 3 hours)on 11-27-2023 Interpretation and review of laboratory results Abnormal [facility] Troponin I 9973 ng/L Critically high NINF - 59 ng/L [facility] Troponin I Interpretation Possible acute cardiac injury. [facility] XR Chest PA and Abdomen APon 11-27-2023 [employer] RIS GE RIS [facility] Radiology Study observation (narrative) [facility] XR Chest PA and Abdomen APOr dered By: Malika Painting on 11-27-2023 [facility] Work Phone: aPTT Coag (Bld) [Time]Ordere d By: Becky Mercado on 11-27-2023 Interpretation and review of laboratory results Abnormal [facility] aPTT Coag (Bld) [Time]Ordere d By: Anjali Hartmann on 11-27-2023 Interpretation and review of laboratory results Abnormal [facility] CBC W Auto Differential pane l (Bld)on 11-26-2023 Basophils (Bld) [#/Vol] 0.05 10*3/uL [facility] Basophils/100 WBC (Bld) 0.2 % 0.0 - 2.0 % [facility] Eosinophils (Bld) [#/Vol] 0.00 10*3/uL [facility] Eosinophils/100 WBC (Bld) 0.0 % 0.0 - 6.0 % [facility] Erythrocyte distribution width (RBC) [Ratio] 13.8 % 11.5 - 14.5 % [facility] Hematocrit (Bld) [Volume fraction] 38.0 % Low 41.0 - 52.0 % [facility] Hemoglobin (Bld) [Mass/Vol] 12.2 g/dL Low 13.5 - 17.5 g/dL [facility] Immature granulocytes (Bld) [#/Vol] 0.12 10*3/uL [facility] Immature granulocytes/100 WBC (Bld) 0.6 % 0.0 - 0.9 % [facility] Comment on above: Immature Granulocyte Count (IG) includes promyelocytes, myelocytes and metamyelocytes but does not include bands. Percent differential counts (%) should be interpreted in the context of the absolute cell counts (cells/UL). Interpretation and review of laboratory results Abnormal [facility] Lymphocytes (Bld) [#/Vol] 2.01 10*3/uL [facility] Lymphocytes/100 WBC (Bld) 9.8 % 13.0 - 44.0 % [facility] MCH (RBC) [Entitic mass] 30.5 pg 26.0 - 34.0 pg [facility] MCHC (RBC) [Mass/Vol] 32.1 g/dL 32.0 - 36.0 g/dL [facility] MCV (RBC) [Entitic vol] 95 fL 80 - 100 fL [facility] Monocytes (Bld) [#/Vol] 0.75 10*3/uL [facility] Monocytes/100 WBC (Bld) 3.7 % 2.0 - 10.0 % [facility] Neutrophils (Bld) [#/Vol] 17.49 10*3/uL High [facility] Comment on above: Percent differential counts (%) should be interpreted in the context of the absolute cell counts (cells/uL). Neutrophils/100 WBC (Bld) 85.7 % 40.0 - 80.0 % [facility] Nucleated RBC/100 WBC (Bld) [Ratio] 0.0 % [facility] Platelets (Bld) [#/Vol] 281 10*3/uL [facility] RBC (Bld) [#/Vol] 4.00 10*6/uL Low [facility] WBC (Bld) [#/Vol] 20.4 10*3/uL High [facility] Comprehensive metabolic 2000 panelon 11-26-2023 Albumin BCP dye [Mass/Vol] 4.2 g/dL 3.4 - 5.0 g/dL [facility] ALP [Catalytic activity/Vol] 101 U/L 33 - 136 U/L [facility] ALT With P-5'-P [Catalytic activity/Vol] 38 U/L 10 - 52 U/L [facility] Comment on above: Patients treated wit h Sulfasalazine may generate falsely decreased results for ALT. Anion gap [Moles/Vol] 17 mmol/L 10 - 20 mmol/L [facility] AST With P-5'-P [Catalytic activity/Vol] 53 U/L High 9 - 39 U/L [facility] Bilirubin [Mass/Vol] 0.6 mg/dL 0.0 - 1 .2 mg/dL [facility] Calcium [Mass/Vol] 9.2 mg/dL 8.6 - 10. 3 mg/dL [facility] Chloride [Moles/Vol] 106 mmol/L 98 - 10 7 mmol/L [facility] CO2 [Moles/Vol] 17 mmol/L Low 21 - 32 mmol/L [facility] Creatinine [Mass/Vol] 1.96 mg/dL High 0.50 - 1.30 mg/dL [facility] GFR/1.73 sq M.predicted among non-blacks MDRD (S/P/Bld) [Vol rate/Area] 34 mL/min/{1.73_m2} Low - PINF [facility] Comment on above: Calculations of albin mated GFR are performed using the 2020 CKD-EPI Study Refit equation without the race variable for the IDMS-Traceable creatinine methods. https://jasn.asnjournals.org/content//ASN.38032 17048 Glucose [Mass/Vol] 492 mg/dL Critically high 74 - 99 mg/d L [facility] Comment on above: Confirmed by repeat analysis Interpretation and review of laboratory results Abnormal [facility] Potassium [Moles/Vol] 4.5 mmol/L 3.5 - 5.3 mmol/L [facility] Protein [Mass/Vol] 6.7 g/dL 6.4 - 8.2 g/dL [facility] Sodium [Moles/Vol] 135 mmol/L Low 136 - 145 mmol/L [facility] Urea nitrogen [Mass/Vol] 35 mg/dL High 6 - 23 mg/dL [facility] Critical Careon 11-26-2023 Ger Aguilera DO 11/27/2023 [...] discussed with: accepting provider at another facility [facility] Work Phone: [facility] Work Phone: Lactateon 11-26-2023 Lactate [Moles/Vol] 3.2 mmol/L High 0.4 - 2. 0 mmol/L [facility] Lactate [Moles/Vol] 3.8 mmol/L High 0.4 - 2. 0 mmol/L [facility] Lactate [Moles/Vol]on 2023 Interpretation and review of laboratory results Abnormal [facility] Venipuncture immediately after or during the administration of Metamizole may lead to falsely low results. Testing should be performed immediately prior to Metamizole dosing. [facility] Interpretation and review of laboratory results Abnormal [facility] Venipuncture immediately after or during the administration of Metamizole may lead to falsely low results. Testing should be performed immediately prior to Metamizole dosing. [facility] MRSA DNA ALICE+probe Ql (Nose) on 11-26-2023 Interpretation and review of laboratory results Normal [facility] MRSA DNA ALICE+probe Ql (Unsp spec) Not detected Not Detected [facility] This assay is an FDA-approved in vitro [...] patients less than two years of age. [facility] Magnesiumon 11-26-2023 Magnesium [Mass/Vol] 2.20 mg/dL 1.60 - 2.40 mg/dL [facility] Magnesium [Mass/Vol]on 11-26 Interpretation and review of laboratory results Normal [facility] Natriuretic peptide B [Mass/ Vol]on 11-26-2023 Interpretation and review of laboratory results Abnormal [facility] Natriuretic peptide B (Bld) [Mass/Vol] 902 pg/mL High 0 - 99 pg/mL [facility] <100 pg/mL - Heart failure unlikely 100-299 pg/mL - Intermediate probability of acute heart failure exacerbation. Correlate with clinical context and patient history. >=300 pg/mL - Heart Failure likely. Correlate with clinical context and patient history. BNP testing is performed using different testing methodology at [facility] than at other [facility]. Direct result comparisons should only be made within the same method. [facility] No Panel Informationon 11-26 [facility] Interpretation and review of laboratory results Normal [facility] PT Coag (PPP) [Time]on 11-26 INR Coag (PPP) [Relative time] 1.1 {INR} 0.9 - 1.1 [facility] Protime-INRon 11-26-2023 PT Coag (PPP) [Time] 12.3 s [facility] Tropinin I.cardiac panel Hig h sensitivity methodon 11-26-2023 Interpretation and review of laboratory results Abnormal [facility] Less than 99th percentile of normal range [...] performed using a different testing methodology at [facility] than at other [facility]. Direct result comparisons should only be made within the same method. [facility] Interpretation and review of laboratory results Abnormal [facility] Less than 99th percentile of normal range [...] performed using a different testing methodology at [facility] than at other [facility]. Direct result comparisons should only be made within the same method. [facility] Troponin I, High Sensitivity on 11-26-2023 Tropinin I.cardiac panel High sensitivity method 3473 ng/L Critically high 0 - 20 ng/L [facility] Comment on above: Previous result veri fied on 11/26/2023 2158 on specimen/case [id number] called with component [facility] for procedure Troponin I, High Sensitivity with value 2,361 ng/L. Tropinin I.cardiac panel High sensitivity method 2361 ng/L Critically high 0 - 20 ng/L [facility] XR Chest Single viewon 11-26 Pulmonary vascular congestive change and edema and small bilateral pleural effusions. There is asymmetric opacity in the right lower lung concerning for superimposed pneumonia. 10 mm nodular opacity at the left lung base; follow-up dedicated CT chest is recommended to exclude underlying pulmonary nodule. MACRO: None Signed by: Ghassan Tovar 11/26/2023 10:02 PM Dictation workstation: [id number] Interpreted By: Ghassan Tovar, STUDY: XR CHEST 1 VIEW; 11/26/2023 9:31 pm INDICATION: Signs/Symptoms:dyspne a. COMPARISON: 10/13/2023 ACCESSION NUMBER(S): [id number] ORDERING CLINICIAN: GER AGUILERA FINDINGS: The cardiac silhouette is stable in size. There is pulmonary vascular congestive change and edema. Small bilateral pleural effusions. There is 10 mm nodular opacity at the left lung base. No pneumothorax [facility] MMODAL Ghassan Tovar MD - 11/26/2023 Interpreted By: Ghassan Tovar, STUDY: XR CHEST 1 VIEW; 11/26/2023 9:31 pm INDICATION: Signs/Symptoms:dyspne a. COMPARISON: 10/13/2023 ACCESSION NUMBER(S): [id number] ORDERING CLINICIAN: GER AGUILERA FINDINGS: The cardiac [...] Ghassan Tovar 11/26/2023 10:02 PM Dictation workstation: [id number] [facility] Work Phone: Radiology Study observation (narrative) [facility] Work Phone: XR Chest Single viewOrdered By: Ghassan Tovar on 11-26-2023 [facility] Work Phone: aPTTon 11-26-2023 aPTT Coag (PPP) [Time] 38 s Un [facility] aPTT Coag (PPP) [Time]on The APTT is no longe r used for monitoring Unfractionated Heparin Therapy. For monitoring Heparin Therapy, use the Heparin Assay. [facility] Absolute lymphocyte countOrd ered By: Ryley Jeter on 11-25-2023 Lymphocytes Auto (Unsp spec) [#/Vol] 1.79 10*3/uL 0.83-4.51 [facility] Automated lymphocyte count a s percentage of total leukocytesOrdered By: Ryley Jeter on 11-25-2023 Lymphocytes/100 WBC Auto (Unsp spec) 19.7 % 19-41 [facility] Basophil percentageOrdered B y: Ryley Jeter on 11-25-2023 Basophils/100 WBC (Bld) 1.0 % 0-1 [facility] Bilirubin [Mass/Vol] 0.50 mg/dL 0.20-1.00 [facility] Comment on above: For patients on eltr ombopag therapy, use of Dimension [place] TBIL is not recommended. Chloride [Moles/Vol] 113 mmol/L 98-107 [facility] Eosinophils/100 WBC (Bld) 2.3 % 0-5 [facility] Glucose [Mass/Vol] 130 mg/dL 74-[address] [facility] Comment on above: Fasting Glucose resu lt greater than or equal to 126 mg/dL suggests DIABETES MELLITUS per A.D.A. criteria. Hemoglobin (Bld) [Mass/Vol] 12.2 g/dL 13.0-16.5 [facility] Monocytes/100 WBC (Bld) 7.5 % 0-10 [facility] Neutrophils (Bld) [#/Vol] 6.3 10*3/uL 2.0-7.7 [facility] Neutrophils/100 WBC (Bld) 69.2 % 47-70 [facility] Potassium [Moles/Vol] 4.3 mmol/L 3.5-5.1 [facility] Protein [Mass/Vol] 7.1 g/dL 6.4-8.[address] [facility] Sodium [Moles/Vol] 142 mmol/L 136-[address] [facility] WBC (Bld) [#/Vol] 9.1 10*3/uL 4.4-11.[address] [facility] Determination of erythrocyte mean corpuscular volume (MCV)Ordered By: Ryley Jeter on 11-25-2023 MCV (RBC) [Entitic vol] 93.5 fL 80-94 [facility] Erythrocyte distribution wid th ratioOrdered By: [facility] Steffany on 11-25-2023 Erythrocyte distribution width (RBC) [Ratio] 14.1 % 11.6-14.6 [facility] Erythrocyte distribution wid th standard deviationOrdered By: Ryley Steffany on 11-25-2023 Erythrocyte distribution width (RBC) [Entitic vol] 47.9 fL 35.1-43.9 [facility] Hematocrit Auto (Bld) [Volum e fraction]Ordered By: Ryley Jeter on 11-25-2023 Hematocrit (Bld) [Volume fraction] 37.7 % 40-54 [facility] Immature granulocytes/100 WB C Auto (Bld)Ordered By: [facility] Steffany on 11-25-2023 Immature granulocytes/100 WBC (Bld) 0.300 % 0.0-0.9 [facility] Comment on above: IG% - Immature Granu locytes (promyelocytes, myelocytes and metamyelocytes) > 1% indicates that a LEFT SHIFT is Present. Laboratory - Chemistry and C hemistry - challengeOrdered By: Ryley Jeter on 11-25-2023 Albumin/Globulin [Mass ratio] 1.0 {ratio} 0.9-2.4 [facility] ALP [Catalytic activity/Vol] 98 U/L 45-117 [facility] ALT [Catalytic activity/Vol] 25 U/L 16-61 [facility] CO2 [Moles/Vol] 25.0 mmol/L 21.0-32.0 [facility] Globulin (S) [Mass/Vol] 3.5 g/dL 2.2-4.2 [facility] Urea nitrogen/Creatinine [Mass ratio] 13.5 mg/mg 10-20 [facility] Laboratory - Hematology and Cell countsOrdered By: Ryley Jeter on 11-25-2023 MCH (RBC) [Entitic mass] 30.3 pg 27.0-32.0 [facility] MCHC (RBC) [Mass/Vol] 32.4 g/dL 32-36 [facility] Nucleated RBC/100 WBC (Bld) [Ratio] 0 % 0-5 [facility] Platelets (Bld) [#/Vol] 239 10*3/uL 150-450 [facility] No Panel InformationOrdered By: Ryley Jeter on 11-25-2023 Estimated GFR (MDRD) Amer 55 mL/min >60 [facility] Comment on above: GFR Calc Estimated GFR (MDRD) Non-Af Amer 46 mL/min >60 [facility] Comment on above: Non- GFR Calc Platelet mean volume Kodi-Ec ker (Bld) [Entitic vol]Ordered By: Ryley Jeter on 11-25-2023 Platelet mean volume (Bld) [Entitic vol] 11.3 fL 6.2-12.0 [facility] RBC Auto (Bld) [#/Vol]Ordere d By: Ryley Jeter on 11-25-2023 RBC (Bld) [#/Vol] 4.03 10*6/uL 4.6-6.2 [facility] Serum or plasma calcium nikkie urement (mass/volume)Ordered By: Ryley Jeter on 11-25-2023 Calcium [Mass/Vol] 9.5 mg/dL 8.5-10.[address] [facility] Serum or plasma creatinine m easurement (mass/volume)Ordered By: Ryley Jeter on 11-25-2023 Creatinine [Mass/Vol] 1.56 mg/dL 0.70-1.30 [facility] Comment on above: The validity of the calculated GFR & GFRAA in patients over 70 years has not been determined. Clinical correlation is essential. Serum or plasma thyroid stim ulating hormone (TSH) measurement (units/volume)Ordered By: Ryley Jeter on 11-25-2023 TSH Qn 0.80 uIU/mL 0.358-3.74 [facility] Serum or plasma urea nitroge n measurement (mass/volume)Ordered By: Ryley Jeter on 11-25-2023 Urea nitrogen [Mass/Vol] 21 mg/dL 7-18 [facility] Thin prep Papanicolaou smear with manual screeningOrdered By: Ryley Jeter on 11-25-2023 Thin prep Papanicolaou smear with manual screening 3.6 g/dL 3.2-5.0 [facility] Thin prep Papanicolaou smear with manual screening 23 U/L 15-37 [facility] Thin prep Papanicolaou smear with manual screening 4 5-15 [facility] Basophil percentageOrdered B y: Jana Ferguson on 10-22-2023 Chloride [Moles/Vol] 111 mmol/L 98-107 [facility] Glucose [Mass/Vol] 120 mg/dL 74-[address] [facility] Comment on above: Fasting Glucose resu lt from 100 to 125 mg/dL suggests IMPAIRED HOMEOSTASIS per A.D.A. criteria. Potassium [Moles/Vol] 4.7 mmol/L 3.5-5.1 [facility] Sodium [Moles/Vol] 140 mmol/L 136-[address] [facility] WBC (Bld) [#/Vol] 9.1 10*3/uL 4.4-11.[address] [facility] Blood erythrocytes count (nu mber/volume)Ordered By: Jana Ferguson on 10-22-2023 RBC (Bld) [#/Vol] 4.16 10*6/uL 4.6-6.2 [facility] Blood hemoglobin measurement (mass/volume)Ordered By: Jana Ferguson on 10-22-2023 Hemoglobin (Bld) [Mass/Vol] 12.3 g/dL 13.0-16.5 [facility] Blood platelet mean volumeOr dered By: Jana Ferguson on 10-22-2023 Platelet mean volume (Bld) [Entitic vol] 11.6 fL 6.2-12.0 [facility] Determination of erythrocyte mean corpuscular volume (MCV)Ordered By: Jana Ferguson on 10-22-2023 MCV (RBC) [Entitic vol] 93.0 fL 80-94 [facility] Hematocrit Auto (Bld) [Volum e fraction]Ordered By: Jana Ferguson on 10-22-2023 Hematocrit (Bld) [Volume fraction] 38.7 % 40-54 [facility] Laboratory - Chemistry and C hemistry - challengeOrdered By: Jana Ferguson on 10-22-2023 CO2 [Moles/Vol] 27.0 mmol/L 21.0-32.0 [facility] Urea nitrogen/Creatinine [Mass ratio] 20.9 mg/mg 10-20 [facility] Laboratory - Hematology and Cell countsOrdered By: Jana Ferguson on 10-22-2023 Erythrocyte distribution width (RBC) [Entitic vol] 44.3 fL 35.1-43.9 [facility] Erythrocyte distribution width (RBC) [Ratio] 13.0 % 11.6-14.6 [facility] MCH (RBC) [Entitic mass] 29.6 pg 27.0-32.0 [facility] MCHC Auto (RBC) [Mass/Vol]Or dered By: Jana Ferguson on 10-22-2023 MCHC (RBC) [Mass/Vol] 31.8 g/dL 32-36 [facility] No Panel InformationOrdered By: Jana Ferguson on 10-22-2023 Estimated GFR (MDRD) Amer 40 mL/min >60 [facility] Comment on above: GFR Calc Estimated GFR (MDRD) Non-Af Amer 33 mL/min >60 [facility] Comment on above: Non- GFR Calc Platelets bldOrdered By: Jadyn Ferguson on 10-22-2023 Platelets (Bld) [#/Vol] 304 10*3/uL 150-450 [facility] Serum or plasma calcium nikkie urement (mass/volume)Ordered By: Jana Ferguson on 10-22-2023 Calcium [Mass/Vol] 9.1 mg/dL 8.5-10.[address] [facility] Serum or plasma creatinine m easurement (mass/volume)Ordered By: Jana Ferguson on 10-22-2023 Creatinine [Mass/Vol] 2.06 mg/dL 0.70-1.30 [facility] Comment on above: The validity of the calculated GFR & GFRAA in patients over 70 years has not been determined. Clinical correlation is essential. Serum or plasma urea nitroge n measurement (mass/volume)Ordered By: Jana Ferguson on 10-22-2023 Urea nitrogen [Mass/Vol] 43 mg/dL 7-18 [facility] Thin prep Papanicolaou smear with manual screeningOrdered By: Jana Ferguson on 10-22-2023 Thin prep Papanicolaou smear with manual screening 2 5-15 [facility] Basic metabolic 2000 panelon 10-13-2023 Anion gap [Moles/Vol] 17 mmol/L 10 - 20 mmol/L [facility] Calcium [Mass/Vol] 8.3 mg/dL Low 8.6 - 10. 3 mg/dL [facility] Chloride [Moles/Vol] 102 mmol/L 98 - 10 7 mmol/L [facility] CO2 [Moles/Vol] 22 mmol/L 21 - 32 mmol/L [facility] Creatinine [Mass/Vol] 2.30 mg/dL High 0.50 - 1.30 mg/dL [facility] GFR/1.73 sq M.predicted MDRD (S/P/Bld) [Vol rate/Area] 28 mL/min/{1.73_m2} Low - PINF [facility] Comment on above: Calculations of albin mated GFR are performed using the 2020 CKD-EPI Study Refit equation without the race variable for the IDMS-Traceable creatinine methods. https://jasn.asnjournals.org/content//ASN.39359 03841 Glucose [Mass/Vol] 327 mg/dL High 74 - 99 mg/dL [facility] Interpretation and review of laboratory results Abnormal [facility] Potassium [Moles/Vol] 4.9 mmol/L 3.5 - 5.3 mmol/L [facility] Sodium [Moles/Vol] 136 mmol/L 136 - 145 mmol/L [facility] Urea nitrogen [Mass/Vol] 57 mg/dL High 6 - 23 mg/dL [facility] CBC W Auto Differential pane l (Bld)on 10-13-2023 Basophils (Bld) [#/Vol] 0.02 10*3/uL [facility] Basophils/100 WBC (Bld) 0.1 % 0.0 - 2.0 % [facility] Eosinophils (Bld) [#/Vol] 0.00 10*3/uL [facility] Eosinophils/100 WBC (Bld) 0.0 % 0.0 - 6.0 % [facility] Erythrocyte distribution width (RBC) [Ratio] 13.2 % 11.5 - 14.5 % [facility] Hematocrit (Bld) [Volume fraction] 36.4 % Low 41.0 - 52.0 % [facility] Hemoglobin (Bld) [Mass/Vol] 12.4 g/dL Low 13.5 - 17.5 g/dL [facility] Immature granulocytes (Bld) [#/Vol] 0.11 10*3/uL [facility] Immature granulocytes/100 WBC (Bld) 0.6 % 0.0 - 0.9 % [facility] Comment on above: Immature Granulocyte Count (IG) includes promyelocytes, myelocytes and metamyelocytes but does not include bands. Percent differential counts (%) should be interpreted in the context of the absolute cell counts (cells/UL). Interpretation and review of laboratory results Abnormal [facility] Lymphocytes (Bld) [#/Vol] 1.30 10*3/uL [facility] Lymphocytes/100 WBC (Bld) 7.3 % 13.0 - 44.0 % [facility] MCH (RBC) [Entitic mass] 31.0 pg 26.0 - 34.0 pg [facility] MCHC (RBC) [Mass/Vol] 34.1 g/dL 32.0 - 36.0 g/dL [facility] MCV (RBC) [Entitic vol] 91 fL 80 - 100 fL [facility] Monocytes (Bld) [#/Vol] 1.15 10*3/uL High [facility] Monocytes/100 WBC (Bld) 6.5 % 2.0 - 10.0 % [facility] Neutrophils (Bld) [#/Vol] 15.21 10*3/uL [facility] Comment on above: Percent differential counts (%) should be interpreted in the context of the absolute cell counts (cells/uL). Neutrophils/100 WBC (Bld) 85.5 % 40.0 - 80.0 % [facility] Nucleated RBC/100 WBC (Bld) [Ratio] 0.0 % [facility] Platelets (Bld) [#/Vol] 153 10*3/uL [facility] RBC (Bld) [#/Vol] 4.00 10*6/uL Low Unive [facility] WBC (Bld) [#/Vol] 17.8 10*3/uL High [facility] Glucose Test strip manual (B ld) [Mass/Vol]on 10-13-2023 Glucose [Mass/Vol] 329 mg/dL High 74 - 99 mg/dL Uni [facility] Interpretation and review of laboratory results Abnormal [facility] Glucose [Mass/Vol] 304 mg/dL High 74 - 99 mg/dL Uni [facility] Interpretation and review of laboratory results Abnormal [facility] Glucose [Mass/Vol] 305 mg/dL High 74 - 99 mg/dL Uni [facility] Interpretation and review of laboratory results Abnormal [facility] XR Chest Single viewon 10-13 Right upper lobe airspace consolidation, concerning for pneumonia. Clinical correlation and continued follow-up until clearing is recommended. MACRO: None. Signed by: Jaret Walker 10/13/2023 11:21 AM Dictation workstation: [id number] JUAN MMODAL Interpreted By: Jaret Walker, STUDY: XR CHEST 1 VIEW 10/13/2023 8:31 am INDICATION: Signs/Symptoms:Acute dyspnea COMPARISON: 10/11/2023 ACCESSION NUMBER(S): [id number] ORDERING CLINICIAN: VERA RIVERA TECHNIQUE: A single [...] INDICATION: Signs/Symptoms:Acute dyspnea COMPARISON: 10/11/2023 ACCESSION NUMBER(S): [id number] ORDERING CLINICIAN: VERA RIVERA TECHNIQUE: A single [...] Jaret Walker 10/13/2023 11:21 AM Dictation workstation: [id number] [facility] Work Phone: Radiology Study observation (narrative) [facility] Work Phone: XR Chest Single viewOrdered By: Jaret Walker on 10-13-2023 [facility] Work Phone: Basic metabolic 2000 panelon 10-12-2023 Anion gap [Moles/Vol] 13 mmol/L 10 - 20 mmol/L [facility] Calcium [Mass/Vol] 8.2 mg/dL Low 8.6 - 10. 3 mg/dL [facility] Chloride [Moles/Vol] 103 mmol/L 98 - 10 7 mmol/L [facility] CO2 [Moles/Vol] 23 mmol/L 21 - 32 mmol/L [facility] Creatinine [Mass/Vol] 2.11 mg/dL High 0.50 - 1.30 mg/dL [facility] GFR/1.73 sq M.predicted MDRD (S/P/Bld) [Vol rate/Area] 31 mL/min/{1.73_m2} Low - PINF [facility] Comment on above: Calculations of albin mated GFR are performed using the 2020 CKD-EPI Study Refit equation without the race variable for the IDMS-Traceable creatinine methods. https://jasn.asnjournals.org/content/early/ASN.68543 22850 Glucose [Mass/Vol] 214 mg/dL High 74 - 99 mg/dL [facility] Interpretation and review of laboratory results Abnormal [facility] Potassium [Moles/Vol] 4.4 mmol/L 3.5 - 5.3 mmol/L [facility] Sodium [Moles/Vol] 135 mmol/L Low 136 - 145 mmol/L [facility] Urea nitrogen [Mass/Vol] 44 mg/dL High 6 - 23 mg/dL [facility] CBC W Auto Differential pane l (Bld)on 10-12-2023 Basophils (Bld) [#/Vol] 0.03 10*3/uL [facility] Basophils/100 WBC (Bld) 0.1 % 0.0 - 2.0 % [facility] Eosinophils (Bld) [#/Vol] 0.00 10*3/uL [facility] Eosinophils/100 WBC (Bld) 0.0 % 0.0 - 6.0 % [facility] Erythrocyte distribution width (RBC) [Ratio] 13.0 % 11.5 - 14.5 % [facility] Hematocrit (Bld) [Volume fraction] 34.5 % Low 41.0 - 52.0 % [facility] Hemoglobin (Bld) [Mass/Vol] 11.8 g/dL Low 13.5 - 17.5 g/dL [facility] Immature granulocytes (Bld) [#/Vol] 0.09 10*3/uL [facility] Immature granulocytes/100 WBC (Bld) 0.4 % 0.0 - 0.9 % [facility] Comment on above: Immature Granulocyte Count (IG) includes promyelocytes, myelocytes and metamyelocytes but does not include bands. Percent differential counts (%) should be interpreted in the context of the absolute cell counts (cells/UL). Interpretation and review of laboratory results Abnormal [facility] Lymphocytes (Bld) [#/Vol] 1.79 10*3/uL [facility] Lymphocytes/100 WBC (Bld) 8.6 % 13.0 - 44.0 % [facility] MCH (RBC) [Entitic mass] 30.8 pg 26.0 - 34.0 pg [facility] MCHC (RBC) [Mass/Vol] 34.2 g/dL 32.0 - 36.0 g/dL [facility] MCV (RBC) [Entitic vol] 90 fL 80 - 100 fL [facility] Monocytes (Bld) [#/Vol] 1.55 10*3/uL High [facility] Monocytes/100 WBC (Bld) 7.5 % 2.0 - 10.0 % [facility] Neutrophils (Bld) [#/Vol] 17.32 10*3/uL [facility] Comment on above: Percent differential counts (%) should be interpreted in the context of the absolute cell counts (cells/uL). Neutrophils/100 WBC (Bld) 83.4 % 40.0 - 80.0 % [facility] Nucleated RBC/100 WBC (Bld) [Ratio] 0.0 % [facility] Platelets (Bld) [#/Vol] 152 10*3/uL [facility] RBC (Bld) [#/Vol] 3.83 10*6/uL Low Unive [facility] WBC (Bld) [#/Vol] 20.8 10*3/uL High [facility] Glucose Test strip manual (B ld) [Mass/Vol]on 10-12-2023 Glucose [Mass/Vol] 240 mg/dL High 74 - 99 mg/dL Uni [facility] Interpretation and review of laboratory results Abnormal [facility] Glucose [Mass/Vol] 166 mg/dL High 74 - 99 mg/dL [facility] Interpretation and review of laboratory results Abnormal [facility] Glucose [Mass/Vol] 186 mg/dL High 74 - 99 mg/dL [facility] Interpretation and review of laboratory results Abnormal [facility] Glucose [Mass/Vol] 218 mg/dL High 74 - 99 mg/dL [facility] Interpretation and review of laboratory results Abnormal [facility] Glucose [Mass/Vol] 127 mg/dL High 74 - 99 mg/dL [facility] Interpretation and review of laboratory results Abnormal [facility] No Panel Informationon 10-12 Extra Tube Hold for add-ons. [facility] Comment on above: Auto resulted. [facility] CBC W Auto Differential pane l (Bld)on 10-11-2023 Basophils (Bld) [#/Vol] 0.07 10*3/uL [facility] Basophils/100 WBC (Bld) 0.7 % 0.0 - 2.0 % [facility] Eosinophils (Bld) [#/Vol] 0.09 10*3/uL [facility] Eosinophils/100 WBC (Bld) 0.9 % 0.0 - 6.0 % [facility] Erythrocyte distribution width (RBC) [Ratio] 13.0 % 11.5 - 14.5 % [facility] Hematocrit (Bld) [Volume fraction] 36.7 % Low 41.0 - 52.0 % [facility] Hemoglobin (Bld) [Mass/Vol] 12.0 g/dL Low 13.5 - 17.5 g/dL [facility] Immature granulocytes (Bld) [#/Vol] 0.03 10*3/uL [facility] Immature granulocytes/100 WBC (Bld) 0.3 % 0.0 - 0.9 % [facility] Comment on above: Immature Granulocyte Count (IG) includes promyelocytes, myelocytes and metamyelocytes but does not include bands. Percent differential counts (%) should be interpreted in the context of the absolute cell counts (cells/UL). Interpretation and review of laboratory results Abnormal [facility] Lymphocytes (Bld) [#/Vol] 1.34 10*3/uL [facility] Lymphocytes/100 WBC (Bld) 12.9 % 13.0 - 44.0 % [facility] MCH (RBC) [Entitic mass] 30.4 pg 26.0 - 34.0 pg [facility] MCHC (RBC) [Mass/Vol] 32.7 g/dL 32.0 - 36.0 g/dL [facility] MCV (RBC) [Entitic vol] 93 fL 80 - 100 fL [facility] Monocytes (Bld) [#/Vol] 1.25 10*3/uL High [facility] Monocytes/100 WBC (Bld) 12.0 % 2.0 - 10.0 % [facility] Neutrophils (Bld) [#/Vol] 7.64 10*3/uL High [facility] Comment on above: Percent differential counts (%) should be interpreted in the context of the absolute cell counts (cells/uL). Neutrophils/100 WBC (Bld) 73.2 % 40.0 - 80.0 % [facility] Nucleated RBC/100 WBC (Bld) [Ratio] 0.0 % [facility] Platelets (Bld) [#/Vol] 158 10*3/uL [facility] RBC (Bld) [#/Vol] 3.95 10*6/uL Low Unive [facility] WBC (Bld) [#/Vol] 10.4 10*3/uL [facility] Comprehensive metabolic 2000 panelon 10-11-2023 Albumin BCP dye [Mass/Vol] 3.8 g/dL 3.4 - 5.0 g/dL [facility] ALP [Catalytic activity/Vol] 83 U/L 33 - 136 U/L [facility] ALT With P-5'-P [Catalytic activity/Vol] 13 U/L 10 - 52 U/L [facility] Comment on above: Patients treated wit h Sulfasalazine may generate falsely decreased results for ALT. Anion gap [Moles/Vol] 15 mmol/L 10 - 20 mmol/L [facility] AST With P-5'-P [Catalytic activity/Vol] 18 U/L 9 - 39 U/L [facility] Bilirubin [Mass/Vol] 0.4 mg/dL 0.0 - 1 .2 mg/dL [facility] Calcium [Mass/Vol] 8.5 mg/dL Low 8.6 - 10. 3 mg/dL [facility] Chloride [Moles/Vol] 103 mmol/L 98 - 10 7 mmol/L [facility] CO2 [Moles/Vol] 22 mmol/L 21 - 32 mmol/L [facility] Creatinine [Mass/Vol] 1.83 mg/dL High 0.50 - 1.30 mg/dL [facility] GFR/1.73 sq M.predicted MDRD (S/P/Bld) [Vol rate/Area] 37 mL/min/{1.73_m2} Low - PINF [facility] Comment on above: Calculations of albin mated GFR are performed using the 2020 CKD-EPI Study Refit equation without the race variable for the IDMS-Traceable creatinine methods. https://jasn.asnjournals.org/content//ASN.38989 53599 Glucose [Mass/Vol] 344 mg/dL High 74 - 99 mg/dL Uni [facility] Interpretation and review of laboratory results Abnormal [facility] Potassium [Moles/Vol] 4.4 mmol/L 3.5 - 5.3 mmol/L [facility] Protein [Mass/Vol] 6.3 g/dL Low 6.4 - 8.2 g/dL Un [facility] Sodium [Moles/Vol] 136 mmol/L 136 - 145 mmol/L [facility] Urea nitrogen [Mass/Vol] 30 mg/dL High 6 - 23 mg/dL [facility] Critical Careon 10-11-2023 Aury Rouse DO 10/12/2023 [...] specialty: no Care discussed with: admitting provider [facility] Work Phone: [facility] Work Phone: D-Dimer, VTE Exclusionon Fibrin D-dimer FEU (PPP) [Mass/Vol] 1869 High NINF [facility] ECG 12-LEADon 10-11-2023 ECG 12-LEAD Ventricular Rate 113 Atrial Rate 113 P-R Interval 148 QRS Duration 82 Q-T Interval 332 QTC Calculation(Bazett) 455 P [place] 67 R [place] 39 T [place] 81 QRS Count 18 Q Onset 220 P Onset 146 P Offset 189 T Offset 386 QTC Fredericia 410 Diagnosis Sinus tachycardia 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 Negative results do not preclude Influenza A/B infections, and should not be used as the sole basis for diagnosis, treatment, or other management decisions. If Influenza A/B and RSV PCR results are negative, testing for Parainfluenza virus, Adenovirus and Metapneumovirus is routinely performed for [facility] pediatric oncology and intensive care inpatients, and is available on other patients by placing an add-on request. [facility] Fibrin D-dimer FEU (PPP) [Ma ss/Vol]on 10-11-2023 Interpretation and review of laboratory results Abnormal [facility] The VTE Exclusion D-Dimer assay is reported in ng/mL Fibrinogen Equivalent Units (FEU). Per statue carver's instructions for use, a value of less [...] assessment model for DVT or PE exclusion.) [facility] Gas panel (BldA)on 3 Apparatus CANNULA [facility] Base excess Calc (Bld) [Moles/Vol] -2.2000 mmol/L Low -2.0 - 3.0 mmol/L [facility] CO2 (Bld) [Partial pressure] 41 mm[Hg] [facility] HCO3 (Bld) [Moles/Vol] 23.2 mmol/L 22.0 - 26.0 mmol/L [facility] Inhaled oxygen concentration 50 % [facility] Interpretation and review of laboratory results Abnormal [facility] Oxygen (Bld) [Partial pressure] 66 mm[Hg] Low [facility] Oxyhemoglobin (BldA) [Mass fraction] 90.6 % Low 94.0 - 98.0 % [facility] pH (Bld) 7.36 [pH] Low 7.38 - 7.42 pH [facility] Glucose Test strip manual (B ld) [Mass/Vol]on 10-11-2023 Glucose [Mass/Vol] 132 mg/dL High 74 - 99 mg/dL [facility] Interpretation and review of laboratory results Abnormal [facility] Glucose [Mass/Vol] 203 mg/dL High 74 - 99 mg/dL [facility] Interpretation and review of laboratory results Abnormal [facility] Glucose [Mass/Vol] 271 mg/dL High 74 - 99 mg/dL [facility] Interpretation and review of laboratory results Abnormal [facility] Glucose [Mass/Vol] 357 mg/dL High 74 - 99 mg/dL [facility] Interpretation and review of laboratory results Abnormal [facility] Glucose [Mass/Vol] 407 mg/dL High 74 - 99 mg/dL [facility] Interpretation and review of laboratory results Abnormal [facility] Glucose [Mass/Vol] 385 mg/dL High 74 - 99 mg/dL [facility] Interpretation and review of laboratory results Abnormal [facility] Glucose [Mass/Vol] 455 mg/dL High 74 - 99 mg/dL [facility] Comment on above: RN/MD NOTIFIED Interpretation and review of laboratory results Abnormal [facility] Glucose [Mass/Vol] 481 mg/dL High 74 - 99 mg/dL [facility] Comment on above: RN/ NOTIFIED Interpretation and review of laboratory results Abnormal [facility] Glucose [Mass/Vol] mg/dL High 74 - 99 mg/dL Uni [facility] Interpretation and review of laboratory results Abnormal [facility] Glucose [Mass/Vol] mg/dL High 74 - 99 mg/dL [facility] Interpretation and review of laboratory results Abnormal [facility] Glucose [Mass/Vol] 571 mg/dL High 74 - 99 mg/dL [facility] Interpretation and review of laboratory results Abnormal [facility] Glucose [Mass/Vol] 562 mg/dL High 74 - 99 mg/dL [facility] Comment on above: RN/ NOTIFIED Interpretation and review of laboratory results Abnormal [facility] Glucose [Mass/Vol] 386 mg/dL High 74 - 99 mg/dL Uni [facility] Interpretation and review of laboratory results Abnormal [facility] Glucose [Mass/Vol]on 023 Interpretation and review of laboratory results Abnormal [facility] Glucose, randomon 10-11-2023 Glucose [Mass/Vol] 654 mg/dL Critically high 74 - 99 mg/d L [facility] Comment on above: Confirmed by repeat analysis Lactateon 10-11-2023 Lactate [Moles/Vol] 1.6 mmol/L 0.4 - 2. 0 mmol/L [facility] Lactate [Moles/Vol]on 2022 Interpretation and review of laboratory results Normal [facility] Venipuncture immediately after or during the administration of Metamizole may lead to falsely low results. Testing should be performed immediately prior to Metamizole dosing. [facility] Natriuretic peptide B [Mass/ Vol]on 10-11-2023 Interpretation and review of laboratory results Abnormal [facility] Natriuretic peptide B (Bld) [Mass/Vol] 251 pg/mL High 0 - 99 pg/mL [facility] <100 pg/mL - Heart failure unlikely 100-299 pg/mL - Intermediate probability of acute heart failure exacerbation. Correlate with clinical context and patient history. >=300 pg/mL - Heart Failure likely. Correlate with clinical context and patient history. BNP testing is performed using different testing methodology at [facility] than at other [facility]. Direct result comparisons should only be made within the same method. [facility] No Panel Informationon 10-11 Atrial Rate 113 BPM [facility] Work Phone: [phone] P [place] 67 degrees [facility] Work Phone: [phone] P Offset 189 ms [facility] Work Phone: [phone] P Onset 146 [facility] Work Phone: [phone] CA Interval 148 ms [facility] Work Phone: [phone] Q Onset 220 ms [facility] Work Phone: [phone] QRS Count 18 beats [facility] Work Phone: [phone] QRS Duration 82 ms [facility] Work Phone: [phone] QT Interval 332 ms [facility] Work Phone: [phone] QTC Calculation(Bazett) 455 [facility] Work Phone: [phone] QTC [place] 410 ms [facility] Work Phone: [phone] R [place] 39 degrees [facility] Work Phone: [phone] T [place] 81 degrees [facility] Work Phone: [phone] T Offset 386 ms [facility] Work Phone: [phone] Ventricular Rate 113 BPM [facility] Work Phone: Sinus tachycardia 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 [facility] Comment on above: Auto resulted. [facility] Interpretation and review of laboratory results Normal [facility] ProcalcitoninOrdered By: Teresa Fine on 10-11-2023 Procalcitonin [Mass/Vol] 0.18 ng/mL High NINF - 0.07 ng/mL [facility] Procalcitonin [Mass/Vol]Orde red By: Ismael Fine on 10-11-2023 Interpretation and review of laboratory results Abnormal [facility] Procalcitonin (PCT) results measured serially can aid [...] on immunomodulatory medications has not been evaluated. [facility] RSV PCRon 10-11-2023 RSV RNA ALICE+probe Ql (Resp) Not detected Not Detected [facility] RSV RNA ALICE+probe Ql (Resp)o n 10-11-2023 This assay is an FDA-cleared, in vitro diagnostic nucleic acid amplification test for the detection of RSV from nasopharyngeal specimens, and has been validated for use at [facility]. Negative results do not preclude RSV infections, and should not be used as the sole basis for diagnosis, treatment, or other management decisions. If Influenza A/B and RSV PCR results are negative, testing for Parainfluenza virus, Adenovirus and Metapneumovirus is routinely performed for pediatric oncology and intensive care inpatients at [facility], and is available on other patients by placing an add-on request. [facility] SARS-CoV-2 (COVID-19) RNA NA A+probe Ql (Resp)Ordered By: Rae Marcelino on 10-11-2023 Interpretation and review of laboratory results Abnormal [facility] This assay has received FDA Emergency Use [...] and has been validated for use at [facility]. Negative results do not preclude COVID-19 infections and should not be used as the sole basis for diagnosis, treatment, or other management decisions. [facility] SST TOPon 10-11-2023 Extra Tube Hold for add-ons. [facility] Comment on above: Auto resulted. [facility] Sars-CoV-2 PCR, SymptomaticO rdered By: Rae Marcelino on 10-11-2023 SARS-CoV-2 (COVID-19) RNA ALICE+probe Ql (Resp) Detected Abnormal Not Detected [facility] Tropinin I.cardiac panel Hig h sensitivity methodon 10-11-2023 Interpretation and review of laboratory results Abnormal [facility] Less than 99th percentile of normal range [...] performed using a different testing methodology at [facility] than at other [facility]. Direct result comparisons should only be made within the same method. [facility] Interpretation and review of laboratory results Abnormal [facility] Less than 99th percentile of normal range [...] performed using a different testing methodology at [facility] than at other [facility]. Direct result comparisons should only be made within the same method. [facility] Troponin I, High Sensitivity , Initialon 10-11-2023 Tropinin I.cardiac panel High sensitivity method 102 ng/L Critically high 0 - 20 ng/L [facility] Troponin, High Sensitivity, 1 Houron 10-11-2023 Tropinin I.cardiac panel High sensitivity method 354 ng/L Critically high 0 - 20 ng/L [facility] Comment on above: Previous result veri gera on 10/11/2023 0209 on specimen/case [id number] called with component [facility] for procedure Troponin I, High Sensitivity, Initial with value 102 ng/L. US Heart TransthoracicOrdere d By: Jose Enrique Molina on 10-11-2023 LA vol index A/L 25.1 [facility] Work Phone: LV A4C EF 45.6 [facility] Work Phone: LV biplane EF 44 [facility] Work Phone: LVIDd 3.70 [facility] Work Phone: LVOT diam 1.80 [facility] Work Phone: [facility] Work Phone: [place] [address] [phone], TRANSTHORACIC ECHOCARDIOGRAM REPORT Patient Name: ENOC FERNANDES Reading Physician: [id number] Jose Enrique Molina MD Study Date: 10/11/2023 Ordering Provider: [id number] VERA RIVERA MRN/PID: [id number] Fellow: Nurse: Jana See RN Date of /Age: 2 1945 / 77 years Contact Worker Lithography: eCcilio Gabriel RDCS Gender: M Additional Staff: Height: 170.18 cm Admit Date: Weight: 71.67 kg Admission Status: Inpatient - Routine BSA: 1.83 m2 Department Location: [address]-ICU Blood Pressure: 141 /71 mmHg Study Type: TRANSTHORACIC ECHO (TTE) COMPLETE Diagnosis/ICD: Acute on chronic systolic (congestive) heart failure (CHF)-I50.23 CPT Codes: Echo Complete w Full Doppler-20883 Study Detail: The following Echo studies were [...] LA Area A2C: 16.2 cm2 LA Major [place] A4C: 5.3 cm LA Major [place] A2C: 5.0 cm LA Volume Index: 23.9 ml/m2 LA Vol A4C: 43.7 ml LA Vol A2C: 43.3 ml LV SYSTOLIC FUNCTION BY 2D PLANIMETRY (MOD): Normal Ranges: EF-A4C View: 45.6 % (>=55%) EF-A2C View: 40.9 % EF-Biplane: 44.2 % AORTIC VALVE: Normal Ranges: LVOT Diameter: 1.80 cm (1.8-2.4cm) RIGHT VENTRICLE: RV Basal 3.49 cm RV Mid 2.45 cm RV Major 7.8 cm [id number] Jose Enrique Molina MD Electronically signed on 10/11/2023 at 9:43:19 AM Final Jose Enrique Gardiner MD - 10/11/2023 [place] [address] [phone], TRANSTHORACIC ECHOCARDIOGRAM REPORT Patient Name: ENOC FERNANDES Reading Physician: [id number] Molina MD Study Date: 10/11/2023 Ordering Provider: [id number] VERA RIVERA MRN/PID: [id number] Fellow: Nurse: Jana See RN Date of /Age: 2 1945 / 77 years Contact Worker Lithography: Cecilio Gabriel RDCS Gender: M Additional Staff: Height: 170.18 cm Admit Date: Weight: 71.67 kg Admission Status: Inpatient - Routine BSA: 1.83 m2 Department Location: [address]-ICU Blood Pressure: 141 /71 mmHg Study Type: TRANSTHORACIC ECHO (TTE) COMPLETE Diagnosis/ICD: Acute on chronic systolic (congestive) heart failure (CHF)-I50.23 CPT Codes: Echo Complete w Full Doppler-62084 Study Detail: The following Echo studies were [...] LA Area A2C: 16.2 cm2 LA [place] A4C: 5.3 cm LA Major [place] A2C: 5.0 cm LA Volume Index: 23.9 ml/m2 LA Vol A4C: 43.7 ml LA Vol A2C: 43.3 ml LV SYSTOLIC FUNCTION BY 2D PLANIMETRY (MOD): Normal Ranges: EF-A4C View: 45.6 % (>=55%) EF-A2C View: 40.9 % EF-Biplane: 44.2 % AORTIC VALVE: Normal Ranges: LVOT Diameter: 1.80 cm (1.8-2.4cm) RIGHT VENTRICLE: RV Basal 3.49 cm RV Mid 2.45 cm RV Major 7.8 cm [id number] Jose Enrique Molina MD Electronically signed on 10/11/2023 at 9:43:19 AM Final [facility] Work Phone: Urinalysis complete W Reflex Culture panel (U)on 10-11-2023 Hyaline casts Auto (Urine sed) [#/Area] OCCASIONAL Abnormal NONE /LPF [facility] Interpretation and review of laboratory results Abnormal [facility] RBC Auto (Urine sed) [#/Area] NONE NONE, 1-2, 3-5 /HPF [facility] WBC Auto (Urine sed) [#/Area] NONE 1-5, NONE /HPF [facility] Appearance (U) Clear Clear [facility] Work Phone: Bilirubin (U) [Mass/Vol] Negative NEGATIVE [facility] Work Phone: [phone] Color (U) Yellow Straw, Yellow [facility] Work Phone: Glucose Auto test strip (U) [Mass/Vol] >=500 (3+) Abnormal NEGATIVE mg/dL [facility] Work Phone: Interpretation and review of laboratory results Abnormal [facility] Work Phone: Ketones (U) [Mass/Vol] 5 (TRACE) Abnormal NEGATIVE mg/d L [facility] Work Phone: Leukocyte esterase Auto test strip Ql (U) Negative NEGATIVE [facility] Work Phone: Nitrite Auto test strip Ql (U) Negative NEGATIVE [facility] Work Phone: pH (U) 5.0 [pH] 5.0, 5.5, 6.0, 6.5, 7.0, 7.5, 8.0 [facility] Work Phone: Protein (U) [Mass/Vol] 100 (2+) Abnormal NEGATIVE mg/d L [facility] Work Phone: RBC (U) [#/Vol] Negative NEGATIVE [facility] Work Phone: Specific gravity (U) [Rel density] 1.014 1.005 - 1.035 [facility] Work Phone: Urobilinogen (U) [Mass/Vol] mg/dL NINF - 2.0 mg/dL [facility] Work Phone: [facility] Work Phone: XR Chest Single viewon 10-11 1. Diffuse interstitial and scattered hazy opacities. These are nonspecific and may represent atypical infectious or inflammatory process or possibly edema in the appropriate clinical setting. Component may also be related to chronic parenchymal changes. Recommend follow-up to resolution. Signed by: Kahlil Fagan 10/11/2023 1:33 AM Dictation workstation: [id number] Interpreted By: Kahlil Fagan, STUDY: XR CHEST 1 VIEW; 10/11/2023 1:30 am INDICATION: Signs/Symptoms:Cough. COMPARISON: Chest radiograph 11/04/2012 ACCESSION NUMBER(S): [id number] ORDERING CLINICIAN: AURY ROUSE FINDINGS: SUPPORT DEVICES: [...] Signs/Symptoms:Cough. COMPARISON: Chest radiograph 11/04/2012 ACCESSION NUMBER(S): [id number] ORDERING CLINICIAN: AURY ROUSE FINDINGS: SUPPORT DEVICES: [...] Kahlil Fagan 10/11/2023 1:33 AM Dictation workstation: [id number] [facility] Work Phone: Radiology Study observation (narrative) [facility] Work Phone: XR Chest Single viewOrdered By: Kahlil Fagan on 10-11-2023 [facility] Work Phone: US RENAL BILATon 07-30-2023 US RENAL BILAT Patient Name: ENOC FERNANDES STUDY: US RENAL BILAT 07/30/2023 1:11 pm INDICATION: 77 y/o M with CKD N18.9: CKD (chronic kidney disease). COMPARISON: None. ACCESSION NUMBER(S): [id number] ORDERING CLINICIAN: AYANNA ALBERT TECHNIQUE: Grayscale imaging [...] hydronephrosis. Electronically signed by: TENNILLE MAHARAJ MD [facility] Therapy Communicationon 07-03 Therapy Communication Message ENOC [...] (E10.9) Orders Albumin, Urine Spot; Status:Active; Requested for:[id number]; Basic Metabolic Panel; Status:Active; Requested for:[id number]; Magnesium, Serum; Status:Active; Requested for:[id number]; Parathormone Intact, Serum; Status:Active; Requested for:[id number]; Phosphorus, Serum; Status:Active; Requested for:[id number]; Ultrasound Kidney Bilateral; Status:Hold For - Scheduling; Requested for:[id number]; Radiologist to Determine Optimal Study : Y What are the patient's signs and symptoms? : CKD Uric Acid, Serum; Status:Active; Requested for:[id number]; Urinalysis; Status:Active; Requested for:64Snm9642; Vitamin D 25-Hydroxy; Status:Need Information - ABN Disposition; Requested for:[id number]; Patient Discussion/Summary Issues: 1. 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 Normal [facility] Tobacco Screening.on 023 Fall risk assessment b) One or more fall s in the last year [facility] Work Phone: Tobacco use status CPHS a) Yes [facility] Work Phone: COMPREHENSIVE PANELon 2022 Albumin [Mass/Vol] 3.7 g/dL Normal 3.4 - 5.0 [facility] Comment on above: Performed By: #### C MP #### [address] [address] ALP [Catalytic activity/Vol] 80 U/L Normal 33 - 136 [facility] Comment on above: Performed By: #### C MP #### [address] [address] ALT [Catalytic activity/Vol] 12 U/L Normal 10 - 52 [facility] Comment on above: Result Comment: Bc ents treated with Sulfasalazine may generate falsely decreased results for ALT. Performed By: #### C MP #### [address] [address] Anion gap [Moles/Vol] 10 mmol/L Normal 10 - 20 [facility] Comment on above: Performed By: #### C MP #### [address] [address] AST [Catalytic activity/Vol] 16 U/L Normal 9 - 39 [facility] Comment on above: Performed By: #### C MP #### [address] [address] Bilirubin [Mass/Vol] 0.5 mg/dL Normal 0.0 - 1.2 [facility] Comment on above: Performed By: #### C MP #### [address] [address] Calcium [Mass/Vol] 8.9 mg/dL Normal 8.6 - 10.3 [facility] Comment on above: Performed By: #### C MP #### [address] [address] Chloride [Moles/Vol] 107 mmol/L Normal 98 - 107 [facility] Comment on above: Performed By: #### C MP #### [address] [address] Creatinine [Mass/Vol] 1.85 mg/dL High 0.50 - 1.30 [facility] Comment on above: Performed By: #### C MP #### [address] [address] GFR/1.73 sq M.predicted among non-blacks MDRD (S/P/Bld) [Vol rate/Area] 36 mL/min/{1.73_m2} Abnormal >90 [facility] Comment on above: Result Comment: CALC ULATIONS OF ESTIMATED GFR ARE PERFORMED USING THE 2020 CKD-EPI STUDY REFIT EQUATION WITHOUT THE RACE VARIABLE FOR THE IDMS-TRACEABLE CREATININE METHODS. https://jasn.asnjournals.org/content//ASN.34370 51634 Performed By: #### C MP #### [address] [address] Glucose [Mass/Vol] 347 mg/dL High 74 - 99 [facility] Comment on above: Performed By: #### C MP #### [address] [address] HCO3 (Bld) [Moles/Vol] 27 mmol/L Normal 21 - 32 [facility] Comment on above: Performed By: #### C MP #### [address] [address] Potassium [Moles/Vol] 4.4 mmol/L Normal 3.5 - 5.3 [facility] Comment on above: Performed By: #### C MP #### [address] [address] Protein [Mass/Vol] 6.0 g/dL Low 6.4 - 8.2 [facility] Comment on above: Performed By: #### C MP #### [address] [address] Sodium [Moles/Vol] 140 mmol/L Normal 136 - 145 [facility] Comment on above: Performed By: #### C MP #### [address] [address] Urea nitrogen [Mass/Vol] 31 mg/dL High 6 - 23 [facility] Comment on above: Performed By: #### C MP #### [address] [address] HEMOGLOBIN A1Con 06-11-2023 Glucose [Mass/Vol] 171 mg/dL Normal [facility] Comment on above: Performed By: #### H BA1E #### [address] [address] HbA1c (Bld) [Mass fraction] 7.6 % Abnormal [facility] Comment on above: Result Comment: Diag nosis of Diabetes-Adults Non-Diabetic: < or = 5.6% Increased risk for developing diabetes: 5.7-6.4% Diagnostic of diabetes: > or = 6.5% . Monitoring of Diabetes Age (y) Therapeutic Goal (%) Adults: >18 <7.0 Pediatrics: 13-18 <7.5 7-12 <8.0 0- 6 7.5-8.5 [place] [employer]. Diabetes Care 33(S1), Nov 2009. 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 Percent differential counts (%) should be interpreted in the context of the absolute cell counts (cells/L). Performed By: #### C BCDF #### [address] [address] Basophils (Bld) [#/Vol] 0.09 10*3/uL Normal 0.00 - 0.10 [facility] Comment on above: Performed By: #### C BCDF #### [address] [address] Basophils/100 WBC (Bld) 1.2 % Normal 0.0 - 2.0 [facility] Comment on above: Performed By: #### C BCDF #### [address] [address] Eosinophils (Bld) [#/Vol] 0.40 10*3/uL Normal 0.00 - 0.40 [facility] Comment on above: Performed By: #### C BCDF #### [address] [address] Eosinophils/100 WBC (Bld) 5.2 % Normal 0.0 - 6.0 [facility] Comment on above: Performed By: #### C BCDF #### [address] [address] Erythrocyte distribution width (RBC) [Ratio] 13.1 % Normal 11.5 - 14.5 [facility] Comment on above: Performed By: #### C BCDF #### [address] [address] Hematocrit (Bld) [Volume fraction] 39.5 % Low 41.0 - 52.0 [facility] Comment on above: Performed By: #### C BCDF #### [address] [address] Hemoglobin (Bld) [Mass/Vol] 12.6 g/dL Low 13.5 - 17.5 [facility] Comment on above: Performed By: #### C BCDF #### [address] [address] Lymphocytes (Bld) [#/Vol] 1.68 10*3/uL Normal 0.80 - 3.00 [facility] Comment on above: Performed By: #### C BCDF #### [address] [address] Lymphocytes/100 WBC (Bld) 21.9 % Normal 13.0 - 44.0 [facility] Comment on above: Performed By: #### C BCDF #### [address] [address] MCHC (RBC) [Mass/Vol] 31.9 g/dL Low 32.0 - 36.0 [facility] Comment on above: Performed By: #### C BCDF #### [address] [address] MCV (RBC) [Entitic vol] 95 fL Normal 80 - 100 [facility] Comment on above: Performed By: #### C BCDF #### [address] [address] Monocytes (Bld) [#/Vol] 0.57 10*3/uL Normal 0.05 - 0.80 [facility] Comment on above: Performed By: #### C BCDF #### [address] [address] Monocytes/100 WBC (Bld) 7.4 % Normal 2.0 - 10.0 [facility] Comment on above: Performed By: #### C BCDF #### [address] [address] Neutrophils (Bld) [#/Vol] 4.91 10*3/uL Normal 1.60 - 5.50 [facility] Comment on above: Result Comment: Perc ent differential counts (%) should be interpreted in the context of the absolute cell counts (cells/L). Performed By: #### C BCDF #### [address] [address] Neutrophils/100 WBC (Bld) 64.0 % Normal 40.0 - 80.0 [facility] Comment on above: Performed By: #### C BCDF #### [address] [address] Platelets (Bld) [#/Vol] 229 10*3/uL Normal 150 - 450 [facility] Comment on above: Performed By: #### C BCDF #### [address] [address] RBC 4.18 x10E12/L Low 4.50 - 5.90 [facility] Comment on above: Performed By: #### C BCDF #### [address] [address] WBC (Bld) [#/Vol] 7.7 10*3/uL Normal 4.4 - 11.3 [facility] Comment on above: Performed By: #### C BCDF #### [address] [address] COMPREHENSIVE PANELon 2022 Albumin [Mass/Vol] 4.0 g/dL Normal 3.4 - 5.0 [facility] Comment on above: Performed By: #### C MP #### [address] [address] ALP [Catalytic activity/Vol] 79 U/L Normal 33 - 136 [facility] Comment on above: Performed By: #### C MP #### [address] [address] ALT [Catalytic activity/Vol] 12 U/L Normal 10 - 52 [facility] Comment on above: Result Comment: Bc ents treated with Sulfasalazine may generate falsely decreased results for ALT. Performed By: #### C MP #### [address] [address] Anion gap [Moles/Vol] 10 mmol/L Normal 10 - 20 [facility] Comment on above: Performed By: #### C MP #### [address] [address] AST [Catalytic activity/Vol] 13 U/L Normal 9 - 39 [facility] Comment on above: Performed By: #### C MP #### [address] [address] Bilirubin [Mass/Vol] 0.6 mg/dL Normal 0.0 - 1.2 [facility] Comment on above: Performed By: #### C MP #### [address] [address] Calcium [Mass/Vol] 9.4 mg/dL Normal 8.6 - 10.3 [facility] Comment on above: Performed By: #### C MP #### [address] [address] Chloride [Moles/Vol] 105 mmol/L Normal 98 - 107 [facility] Comment on above: Performed By: #### C MP #### [address] [address] Creatinine [Mass/Vol] 1.69 mg/dL High 0.50 - 1.30 [facility] Comment on above: Performed By: #### C MP #### [address] [address] GFR/1.73 sq M.predicted among non-blacks MDRD (S/P/Bld) [Vol rate/Area] 41 mL/min/{1.73_m2} Abnormal >90 [facility] Comment on above: Result Comment: CALC ULATIONS OF ESTIMATED GFR ARE PERFORMED USING THE 2020 CKD-EPI STUDY REFIT EQUATION WITHOUT THE RACE VARIABLE FOR THE IDMS-TRACEABLE CREATININE METHODS. https://jasn.asnjournals.org/content//ASN.12070 [address] Performed By: #### C MP #### [address] [address] Glucose [Mass/Vol] 253 mg/dL High 74 - 99 [facility] Comment on above: Performed By: #### C MP #### [address] [address] HCO3 (Bld) [Moles/Vol] 28 mmol/L Normal 21 - 32 [facility] Comment on above: Performed By: #### C MP #### [address] [address] Potassium [Moles/Vol] 4.8 mmol/L Normal 3.5 - 5.3 [facility] Comment on above: Performed By: #### C MP #### [address] [address] Protein [Mass/Vol] 6.4 g/dL Normal 6.4 - 8.2 [facility] Comment on above: Performed By: #### C MP #### [address] [address] Sodium [Moles/Vol] 138 mmol/L Normal 136 - 145 [facility] Comment on above: Performed By: #### C MP #### [address] [address] Urea nitrogen [Mass/Vol] 25 mg/dL High 6 - 23 [facility] Comment on above: Performed By: #### C MP #### [address] [address] HEMOGLOBIN A1Con 02-12-2023 Glucose [Mass/Vol] 174 mg/dL Normal [facility] Comment on above: Performed By: #### H BA1E #### [address] [address] HbA1c (Bld) [Mass fraction] 7.7 % Abnormal [facility] Comment on above: Result Comment: Diag nosis of Diabetes-Adults Non-Diabetic: < or = 5.6% Increased risk for developing diabetes: 5.7-6.4% Diagnostic of diabetes: > or = 6.5% . Monitoring of Diabetes Age (y) Therapeutic Goal (%) Adults: >18 <7.0 Pediatrics: 13-18 <7.5 7-12 <8.0 0- 6 7.5-8.5 [place] [employer]. Diabetes Care 33(S1), Nov 2009. Performed By: #### H BA1E #### [address] [address] LIPID PANEL (CORONARY RISK 2 )on 02-12-2023 Cholesterol [Mass/Vol] 154 mg/dL Normal 0 - 199 [facility] Comment on above: Result Comment: . AGE [...] dosing. Performed By: #### L IPID #### [address] [address] Cholesterol in HDL [Mass/Vol] 43.0 mg/dL Normal [facility] Comment on above: Result Comment: . AGE VERY LOW LOW NORMAL HIGH 0-19 Y < 35 < 40 40-45 ---- 20-24 Y ---- < 40 >45 ---- >24 Y ---- < 40 40-60 >60 . Performed By: #### L IPID #### [address] [address] Cholesterol in LDL [Mass/Vol] 96 mg/dL Normal 0 - 99 [facility] Comment on above: Result Comment: . NEAR BORD AGE DESIRABLE OPTIMAL HIGH HIGH VERY HIGH 0-19 Y 0 - 109 --- 110-129 >/= 130 ---- 20-24 Y 0 - 119 --- 120-159 >/= 160 ---- >24 Y 0 - 99 100-129 130-159 160-189 >/=190 . Performed By: #### L IPID #### [address] [address] Cholesterol in VLDL [Mass/Vol] 15 mg/dL Normal 0 - 40 [facility] Comment on above: Performed By: #### L IPID #### [address] [address] Cholesterol.total/Chol esterol in HDL [Mass ratio] 3.6 {ratio} Normal [facility] Comment on above: Result Comment: REF VALUES DESIRABLE < 3.4 HIGH RISK > 5.0 Performed By: #### L IPID #### [address] [address] Triglyceride [Mass/Vol] 77 mg/dL Normal 0 - 149 [facility] Comment on above: Result Comment: . AGE [...] dosing. Performed By: #### L IPID #### [address] [address] PROSTATE SPEC.AG,SCREENon PROSTATE SPEC.AG,SCREEN 3.14 ng/mL Normal 0.00 - 4.00 [facility] Comment on above: Result Comment: The FDA requires that the method used for PSA assay be reported to the physician. Values obtained with different assay methods must not be used interchangeably. This test was performed at [facility] using the Daojia PSA assay is a two-site immunoenzymatic sandwich assay. The assay is approved for measurement of prostate-specific antigen (PSA)in serum and may be used in conjunction with a digital rectal examination in men 50 years and older as an aid in detection of prostate cancer. 5-Ermxo-ijzzmpaem inhibitors (e.g. Proscar, Finasteride, Avodart, Dutasteride and Alma Rosa) for the treatment of BPH have been shown to lower PSA levels by an average of 50% after 6 months of treatment. Performed By: #### P [facility] #### [address] [address] THYROXINE,FREEon 02-12-2023 THYROXINE,FREE 1.16 ng/dL High 0.61 - 1.12 [facility] Comment on above: Result Comment: Thyr oxine Free testing is performed using different testing methodology at [facility] than at other [facility]. Direct result comparisons should only be made [...] draw. Performed By: #### T 4FRE #### [address] [address] TSHon 02-12-2023 TSH Qn 0.73 m[IU]/L Normal 0.44 - 3.98 [facility] Comment on above: Result Comment: TSH testing is performed using different testing methodology at [facility] than at other [facility]. Direct result comparisons should only be made within the same method. Performed By: #### T SH2 #### [address] [address] PT Progress Noteon 3 PT Progress Note [...] . the patient will continue therapy at [facility]. Potential to achieve rehab goals is fair: [...] Declined. Insurance Insurance reviewed Visit number: 10 [employer] Evaluating therapist Shoaib Bhandari PT. The physical [...] code time is 30 minutes. Therapeutic exercise (22009):. Not Today 01/25/23 NuStep 5? Slant board [...] 10 x 10? hold (N). Manual Therapy (74712): timed minutes 15, units 1 . STW to glutes and QL and IT band, hip flexor. Modalities: untimed minutes 15, units 1 . IFC to R Lumbar/Glute region x 10' in S/L w/ MHP. 'Scores and Scales' Signatures Electronically signed by : Zoila Lopez, MANAGER MEDIA RELATIONS; Jan 25 2023 5:14PM EST (Author) Electronically [...] . the patient will continue therapy at [facility]. Potential to achieve rehab goals is fair: [...] code time is 35 minutes. Therapeutic exercise (11446): timed minutes 20, units 1 . Pt [...] . the patient will continue therapy at [facility]. Potential to achieve rehab goals is fair: [...] Declined. Insurance Insurance reviewed Visit number: 9 [employer] Evaluating therapist Shoaib Bhandari PT. The physical [...] code time is 35 minutes. Therapeutic exercise (98693): timed minutes 20, units 1 . Pt [...] disc chops (more content not included)... Normal [facility] PT Progress Noteon 3 PT Progress Note [...] . the patient will continue therapy at [facility]. Potential to achieve rehab goals is fair: [...] code time is 38 minutes. Therapeutic exercise (83888): timed minutes 26, units 2 . NuStep [...] 30? D/C to HEP . Manual Therapy (16756): timed minutes 12, units 1 . STW to glutes and QL and IT band. Provided today:. 12/25/22 [id number] Provided and reviewed HEP, patient demosntrated good understanding. 'Scores and Scales' Signatures Electronically signed by : Chaya Morrow (more content not included)... Normal [facility] PT Progress Noteon 3 PT Progress Note [...] . the patient will continue therapy at [facility]. Potential to achieve rehab goals is fair: [...] code time is 38 minutes. Therapeutic exercise (44460): timed minutes 26, units 2 . NuStep [...] 30? D/C to HEP . Manual Therapy (86303): timed minutes 12, units 1 . STW to glutes and QL and IT band. Provided today:. 12/25/22 [id number] Provided and reviewed HEP, patient demosntrated good understanding. 'Scores and Scales' Signatures Electronically signed by : Chaya Chan, MANAGER MEDIA RELATIONS; Jan 13 2023 11:01AM EST (Author) Electronically [...] . the patient will continue therapy at [facility]. Potential to achieve rehab goals is fair: [...] Declined. Insurance Insurance reviewed Visit number: 6 [employer] Evaluating therapist Shoaib Bhandari PT. The physical [...] code time is 43 minutes. Therapeutic exercise (90865): timed minutes 32, units 2 . NuStep [...] x 10 Green band . Manual Therapy (13594): timed minutes 11, units 1 . STW to glutes and QL 10'. Provided today:. 12/25/22 [id number] Provided and reviewed HEP, patient demosntrated good understanding. 'Scores and Scales' Signatures Electronically signed by : Chaya Chan, MANAGER MEDIA RELATIONS; Jan 08 2023 10:51AM EST (Author) Electronically [...] . the patient will continue therapy at [facility]. Potential to achieve rehab goals is fair: [...] Declined. Insurance Insurance reviewed Visit number: 5 [employer] Evaluating therapist Shoaib Bhandari PT. The physical [...] code time is 44 minutes. Therapeutic exercise (16933): timed minutes 34, units 2 . NuStep [...] 10 Green band (N) . Manual Therapy (36812): timed minutes 10, units 1 . STW to glutes and QL 10'. Provided today:. 12/25/22 [id number] Provided and reviewed HEP, patient demosntrated good understanding. 'Scores and Scales' Signatures Electronically signed by : Zoila Lopez, MANAGER MEDIA RELATIONS; Jan 06 2023 12:41PM EST (Author) Electronically [...] . the patient will continue therapy at [facility]. Potential to achieve rehab goals is fair: [...] Declined. Insurance Insurance reviewed Visit number: 4 [employer] Evaluating therapist Shoaib Bhandari PT. The physical [...] code time is 44 minutes. Therapeutic exercise (64686): timed minutes 34, units 2 . NuStep [...] x 10 orange band . Manual Therapy (99952): timed minutes 10, units 1 . STW to glutes and QL 10'. Provided today:. 12/25/22 [id number] Provided and reviewed HEP, patient demosntrated good understanding. 'Scores and Scales' Signatures Electronically signed by : Zoila Lopez, MANAGER MEDIA RELATIONS; Jan 01 2023 12:56PM EST (Author) Electronically [...] . the patient will continue therapy at [facility]. Potential to achieve rehab goals is fair: [...] code time is 44 minutes. Therapeutic exercise (67581): timed minutes 34, units 2 . NuStep [...] x 10 orange band . Manual Therapy (89864): timed minutes 10, units 1 . STW to glutes and QL 10'. Provided today:. 12/25/22 [id number] Provided and reviewed HEP, patient demosntrated good understanding. 'Scores and Scales' Signatures Electronically signed by : Zoila Lopez, MANAGER MEDIA RELATIONS; Dec 30 2022 5:01PM EST (Author) Electronically [...] . the patient will continue therapy at [facility]. Potential to achieve rehab goals is fair: [...] Declined. Insurance Insurance reviewed Visit number: 2 [employer] Evaluating therapist Shoaib Bhandari PT. The physical [...] code time is 41 minutes. Therapeutic exercise (14242): timed minutes 31, units 2 . NuStep 5? start wall lean n mini squat x10 LTR x10 5? hold Piriformis stretch 3 x 30? Supine QL stretch 3 x 30? Hip flex stretch EOB TrA x10 5? hold Hooklying TrA/hip add ball 2 x 10 3? hold Hooklying TrA/hip abd 2 x 10 orange band . Manual Therapy (54777): timed minutes 10, units 1 . STW to gluts and QL. Provided today:. 12/25/22 [id number] Provided and reviewed HEP, patient demosntrated good understanding. 'Scores and Scales' Signatures Electronically signed by : Chaya Chan MANAGER MEDIA RELATIONS; Dec 25 2022 10:14AM EST (Author) Electronically [...] . the patient will continue therapy at [facility]. 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 Assessment At least a 5 yr HX of LBP (previous HX of sciatica). No recent film studies have been done. He will be a low fall risk. The patient will continue his therapy at [facility]. Physical findings include limited trunk ROM with [...] Declined. Insurance Insurance reviewed Visit number: 1 [employer] Evaluating therapist Shoaib Bhandari PT. The physical [...] Impact Care:. ID confirmed with B-day; speaks bangladeshi No obtrusive barriers to learning identified/observed. Objective [...] Date: 02/26/2021 1:55 PM Patient Status: Outpatient Fish Tender: Melissa Swift, TAMMI, RDMS (AB), RVT Referring Physician: MARY YAN ; Indications I65.23 - Occlusion and stenosis of bilateral carotid arteries Procedure Description 57741 Duplex examination using B-mode, color and spectral [...] noted in the (more content not included)... [facility] Interface, Rad In Heartlab Xper Echopacs - 02/26/2021 4:33 PM EDT Patient Info Name: ENOC FERNANDES Age: 75 years : 1945 Gender: Male Exam Date: 02/26/2021 1:55 PM Patient Status: Outpatient Fish Tender: Melissa Swift, BS, RDMS (AB), RVT Referring Physician: MARY YAN ; Indications I65.23 - Occlusion and stenosis of bilateral carotid arteries Procedure Description 06984 Duplex examination using B-mode, color and spectral [...] JO-ANN Nguyen DO on 02/26/2021 04:31 PM [facility] Auto Diffon 07-04-2019 Basophils (Bld) [#/Vol] 0.1 E3/mcL Normal 0.0-0.2 [facility] Comment on above: Order Comment: Order Added by Discern Expert. Performed By: #### 2 [id number] #### MIKE [employer] [address] [place] [address] Basophils/100 WBC (Bld) 1.2 % Normal 0.0-2.0 [facility] Comment on above: Order Comment: Order Added by Discern Expert. Performed By: #### 2 259753 #### MIKE [employer] [address] [place] [address] Eos Absolute 0.2 E3/mcL Normal 0.0-0.7 [facility] Comment on above: Order Comment: Order Added by Discern Expert. Performed By: #### 2 126020 #### MIKE [employer] [address] [place] [address] Eosinophils/100 WBC (Bld) 2.0 % Normal 0.0-11.0 [facility] Comment on above: Order Comment: Order Added by Discern Expert. Performed By: #### 2 050663 #### MIKE Rodriguez[address] [address] Lymphocytes (Bld) [#/Vol] 1.7 E3/mcL Normal 1.2-3.4 [facility] Comment on above: Order Comment: Order Added by Discern Expert. Performed By: #### 2 076993 #### MIKE Rodriguez[address] [address] Lymphocytes/100 WBC (Bld) 20.9 % Normal 20.0-55.0 [facility] Comment on above: Order Comment: Order Added by Discern Expert. Performed By: #### 2 621781 #### MIKE Rodriguez[address] [address] Williams Absolute 0.7 E3/mcL Normal 0.0-0.7 [facility] Comment on above: Order Comment: Order Added by Discern Expert. Performed By: #### 2 896483 #### MIKE Rodriguez[address] [address] Monocytes/100 WBC (Bld) 8.0 % Normal 0.0-10.0 [facility] Comment on above: Order Comment: Order Added by Discern Expert. Performed By: #### 2 736138 #### MIKE Rodriguez[address] [address] Neutro Absolute 5.5 E3/mcL Normal 1.4-6.5 [facility] Comment on above: Order Comment: Order Added by Discern Expert. Performed By: #### 2 440860 #### MIKE [address] [address] Neutro Auto 67.9 % Normal 37.0-75.0 [facility] Comment on above: Order Comment: Order Added by Discern Expert. Performed By: #### 2 336686 #### MIKE Jennifer[address] [address] CBC w/ Auto Diffon 9 Erythrocyte distribution width (RBC) [Ratio] 13.3 % Normal 11.5-14.5 [facility] Comment on above: Performed By: #### 2 231454 #### MIKE [address] [place] [address] Hematocrit (Bld) [Volume fraction] 40.4 % Low 42.0-52.0 [facility] Comment on above: Performed By: #### 2 392036 #### MIKE Rodriguez[address] [address] Hemoglobin (Bld) [Mass/Vol] 13.6 g/dL Normal 13.5-18.0 [facility] Comment on above: Performed By: #### 2 063490 #### MIKE Rodriguez[address] [address] MCH (RBC) [Entitic mass] 31.6 pg High 27.0-31.0 [facility] Comment on above: Performed By: #### 2 290995 #### MIKE Rodriguez[address] [address] MCHC (RBC) [Mass/Vol] 33.7 g/dL Normal 33.0-37.0 [facility] Comment on above: Performed By: #### 2 938714 #### MIKE Rodriguez[address] [address] MCV (RBC) [Entitic vol] 93.8 fL Normal 78.0-100.0 [facility] Comment on above: Performed By: #### 2 003983 #### MIKE Rodriguez[address] [address] Platelet mean volume (Bld) [Entitic vol] 10.2 fL Normal 7.4-11.0 [facility] Comment on above: Performed By: #### 2 496775 #### MIKEAnabelle RodriguezPlazapoints ([facility]) [address] [place] [address] Platelets (Bld) [#/Vol] 218 E3/mcL Normal 130-400 [facility] Comment on above: Performed By: #### 2 846937 #### MIKEAnabelle RodriguezPlazapoints ([facility]) [address] [place] [address] RBC (Bld) [#/Vol] 4.31 E6/mcL Normal 3.90-6.10 [facility] Comment on above: Performed By: #### 2 015742 #### MIKE Zazueta [employer] [place] [address] WBC (Bld) [#/Vol] 8.1 E3/mcL Normal 3.6-11.0 [facility] Comment on above: Performed By: #### 2 407554 #### MIKE [place] [id number] CMPon 07-04-2019 Albumin [Mass/Vol] 4.2 g/dL Normal 3.4-5.0 [facility] Comment on above: Performed By: #### 2 388634 #### MIKE Rodriguez[address] [address] Albumin/Globulin [Mass ratio] 1.8 {ratio} Normal 1.1-1.9 [facility] Comment on above: Performed By: #### 2 522252 #### MIKE Rodriguez[address] [address] Alk Phos 81 Int._Unit/L Normal 33-136 [facility] Comment on above: Performed By: #### 2 079550 #### MIKE [address] [place] [address] ALT [Catalytic activity/Vol] 15 Int._Unit/L Normal 10-52 [facility] Comment on above: Performed By: #### 2 966400 #### MIKE [address] [place] [address] Anion gap [Moles/Vol] 12 mmol/L Normal 10-20 [facility] Comment on above: Performed By: #### 2 780623 #### MIKEAnabelle Zazueta [address] [place] [address] AST [Catalytic activity/Vol] 18 Int._Unit/L Normal 9-39 [facility] Comment on above: Performed By: #### 2 195108 #### MIKE RodriguezPlazapoints ([employer]) [employer] [place] [address] Bili Total 0.35 mg/dL Normal 0.00-1.20 [facility] Comment on above: Performed By: #### 2 383005 #### MIKE [employer] [address] [place] [address] Calcium [Mass/Vol] 9.5 mg/dL Normal 8.6-10.3 [facility] Comment on above: Performed By: #### 2 115384 #### MIKE [employer] [address] [place] [address] Chloride [Moles/Vol] 108 mmol/L High 98-107 [facility] Comment on above: Performed By: #### 2 444449 #### MIKE [employer] [address] [place] [address] CO2 [Moles/Vol] 27.0 mmol/L Normal 21.0-32.0 [facility] Comment on above: Performed By: #### 2 461788 #### MIKE [employer] [place] [address] Creatinine [Mass/Vol] 1.0 mg/dL Normal 0.5-1.3 [facility] Comment on above: Performed By: #### 2 954614 #### MIKE [facility] [address] [place] [address] Globulin (S) [Mass/Vol] 2.0 g/dL Normal 2.0-4.0 [facility] Comment on above: Performed By: #### 2 261773 #### MIKE [facility] [address] [place] [address] Glucose [Mass/Vol] 159 mg/dL High 70-99 [facility] Comment on above: Performed By: #### 2 382132 #### MIKE [employer] [address] [place] [address] Potassium [Moles/Vol] 3.7 mmol/L Normal 3.5-5.3 [facility] Comment on above: Performed By: #### 2 596744 #### MIKE [employer] [address] [place] [address] Protein [Mass/Vol] 6.5 g/dL Normal 6.4-8.2 [facility] Comment on above: Performed By: #### 2 671953 #### [facility] [address] [place] [address] Sodium [Moles/Vol] 143 mmol/L Normal 136-145 [facility] Comment on above: Performed By: #### 2 710066 #### MIKE [employer] [address] [place] [address] Urea nitrogen [Mass/Vol] 19 mg/dL Normal 6-23 [facility] Comment on above: Performed By: #### 2 067068 #### MIKE [employer] [address] [place] [address] Urea nitrogen/Creatinine [Mass ratio] 19.0 ratio Normal 5.4-30.0 [facility] Comment on above: Performed By: #### 2 121207 #### MIKE [employer] [address] [place] [address] [id number] 07-04-2019 HbA1c (Bld) [Mass fraction] 8.3 % High 4.0-6.3 [facility] Comment on above: Performed By: #### 2 349653 #### MIKE [employer] [address] [place], [place] [address] eGFRon 07-04-2019 GFR/1.73 sq M predicted among non-blacks MDRD (S/P/Bld) [Vol rate/Area] mL/min/{1.73_m2} Normal [facility] Comment on above: Order Comment: Order added by Discern Expert. Performed By: #### 2 488407 #### MIKE [employer] [address] [place] [address] Auto Diffon 03-03-2019 Basophils (Bld) [#/Vol] 0.1 E3/mcL Normal 0.0-0.2 [facility] Comment on above: Order Comment: Order Added by Discern Expert. Performed By: #### 2 299548 #### MIKE RemHemo [address] [place] [address] Basophils/100 WBC (Bld) 1.0 % Normal 0.0-2.0 [facility] Comment on above: Order Comment: Order Added by Discern Expert. Performed By: #### 2 272478 #### MIKE RemHemo [address] [place] [address] Eos Absolute 0.2 E3/mcL Normal 0.0-0.7 [facility] Comment on above: Order Comment: Order Added by Discern Expert. Performed By: #### 2 575587 #### MIKE RemHemo [address] [place] [address] Eosinophils/100 WBC (Bld) 2.6 % Normal 0.0-11.0 [facility] Comment on above: Order Comment: Order Added by Discern Expert. Performed By: #### 2 376458 #### IMKE RemHemo [address] [place] [address] Lymphocytes (Bld) [#/Vol] 2.0 E3/mcL Normal 1.2-3.4 [facility] Comment on above: Order Comment: Order Added by Discern Expert. Performed By: #### 2 330780 #### MIKE RodriguezHemo [address] [place] [address] Lymphocytes/100 WBC (Bld) 26.7 % Normal 20.0-55.0 [facility] Comment on above: Order Comment: Order Added by Discern Expert. Performed By: #### 2 297413 #### MIKE RemHemo [address] [place] [address] Williams Absolute 0.7 E3/mcL Normal 0.0-0.7 [facility] Comment on above: Order Comment: Order Added by Discern Expert. Performed By: #### 2 779794 #### MIKE RemHemo [address] [place] [address] Monocytes/100 WBC (Bld) 9.4 % Normal 0.0-10.0 [facility] Comment on above: Order Comment: Order Added by Discern Expert. Performed By: #### 2 777406 #### MIKE RemHemo [address] [place] [address] Neutro Absolute 4.5 E3/mcL Normal 1.4-6.5 [facility] Comment on above: Order Comment: Order Added by Discern Expert. Performed By: #### 2 533276 #### MIKE RemHemo [address] [place] [address] Neutro Auto 60.3 % Normal 37.0-75.0 [facility] Comment on above: Order Comment: Order Added by Discern Expert. Performed By: #### 2 018702 #### MIKE RemHemo [address] [place] [address] CBC w/ Auto Diffon 9 Erythrocyte distribution width (RBC) [Ratio] 13.2 % Normal 11.5-14.5 [facility] Comment on above: Performed By: #### 2 333744 #### MIKE RodriguezHemo [address] [place] [address] Hematocrit (Bld) [Volume fraction] 41.7 % Low 42.0-52.0 [facility] Comment on above: Performed By: #### 2 985458 #### MIKE RemHemo [address] [place] [address] Hemoglobin (Bld) [Mass/Vol] 14.1 g/dL Normal 13.5-18.0 [facility] Comment on above: Performed By: #### 2 944390 #### MIKE RodriguezHemo [address] [place] [address] MCH (RBC) [Entitic mass] 31.5 pg High 27.0-31.0 [facility] Comment on above: Performed By: #### 2 519574 #### MIKE RemHemo [employer] [place] [address] MCHC (RBC) [Mass/Vol] 33.7 g/dL Normal 33.0-37.0 [facility] Comment on above: Performed By: #### 2 242417 #### MIKE RodriguezHemo [address] [place] [address] MCV (RBC) [Entitic vol] 93.5 fL Normal 78.0-100.0 [facility] Comment on above: Performed By: #### 2 655487 #### MIKE RemHemo [address] [place] [address] Platelet mean volume (Bld) [Entitic vol] 10.0 fL Normal 7.4-11.0 [facility] Comment on above: Performed By: #### 2 117546 #### MIKE RemHemo [address] [place] [address] Platelets (Bld) [#/Vol] 218 E3/mcL Normal 130-400 [facility] Comment on above: Performed By: #### 2 145344 #### MIKE RemHemo [address] [place] [address] RBC (Bld) [#/Vol] 4.46 E6/mcL Normal 3.90-6.10 [facility] Comment on above: Performed By: #### 2 922074 #### MIKE RemHemo [employer] [place] [address] WBC (Bld) [#/Vol] 7.5 E3/mcL Normal 3.6-11.0 [facility] Comment on above: Performed By: #### 2 735993 #### MIKE RemHemo [address] [place] [address] CMPon 03-03-2019 Albumin [Mass/Vol] 4.1 g/dL Normal 3.4-5.0 [facility] Comment on above: Performed By: #### 2 254326 #### MIKE [employer] [address] [place] [address] Albumin/Globulin [Mass ratio] 1.6 {ratio} Normal 1.1-1.9 [facility] Comment on above: Performed By: #### 2 074399 #### [facility] [employer] [address] [place] [address] Alk Phos 83 Int._Unit/L Normal 33-136 [facility] Comment on above: Performed By: #### 2 472530 #### MIKE [employer] [address] [place] [address] ALT [Catalytic activity/Vol] 13 Int._Unit/L Normal 10-52 [facility] Comment on above: Performed By: #### 2 750549 #### MIKE [employer] [address] [place] [address] Anion gap [Moles/Vol] 9 mmol/L Low 10-20 [facility] Comment on above: Performed By: #### 2 641363 #### MIKE [employer] [address] [place] [address] AST [Catalytic activity/Vol] 16 Int._Unit/L Normal 9-39 [facility] Comment on above: Performed By: #### 2 326056 #### MIKE [employer] [address] [place] [address] Bili Total 0.55 mg/dL Normal 0.00-1.20 [facility] Comment on above: Performed By: #### 2 944473 #### MIKE [employer] [address] [place] [address] Calcium [Mass/Vol] 9.3 mg/dL Normal 8.6-10.3 [facility] Comment on above: Performed By: #### 2 481696 #### MIKE [employer] [address] [place] [address] Chloride [Moles/Vol] 105 mmol/L Normal 98-107 [facility] Comment on above: Performed By: #### 2 718185 #### MIKE [employer] [address] [place] [address] CO2 [Moles/Vol] 28.0 mmol/L Normal 21.0-32.0 [facility] Comment on above: Performed By: #### 2 633093 #### MIKE [employer] [address] [place] [address] Creatinine [Mass/Vol] 1.0 mg/dL Normal 0.5-1.3 [facility] Comment on above: Performed By: #### 2 659776 #### [facility] [employer] [address] [place] [address] Globulin (S) [Mass/Vol] 3.0 g/dL Normal 2.0-4.0 [facility] Comment on above: Performed By: #### 2 224873 #### [facility] [employer] [address] [place] [address] Glucose [Mass/Vol] 273 mg/dL High 70-99 [facility] Comment on above: Performed By: #### 2 175014 #### MIKE [employer] [address] [place] [address] Potassium [Moles/Vol] 4.2 mmol/L Normal 3.5-5.3 [facility] Comment on above: Performed By: #### 2 750733 #### MIKE [employer] [address] [place] [address] Protein [Mass/Vol] 6.6 g/dL Normal 6.4-8.2 [facility] Comment on above: Performed By: #### 2 212509 #### MIKE [employer] [address] [place] [address] Sodium [Moles/Vol] 138 mmol/L Normal 136-145 [facility] Comment on above: Performed By: #### 2 153038 #### MIKE [employer] [place] [address] Urea nitrogen [Mass/Vol] 20 mg/dL Normal 6-23 [facility] Comment on above: Performed By: #### 2 750754 #### MIKE [employer] [address] [place] [address] Urea nitrogen/Creatinine [Mass ratio] 20.0 ratio Normal 5.4-30.0 [facility] Comment on above: Performed By: #### 2 683952 #### MIKE [email or web address] [address] [place] [address] Free T4on 03-03-2019 Free T4 [Mass/Vol] 0.98 ng/dL Normal 0.58-1.64 [facility] Comment on above: Performed By: #### 2 840492 #### MIKE [employer] [address] [place] [address] [id number] 03-03-2019 HbA1c (Bld) [Mass fraction] 8.4 % High 4.0-6.3 [facility] Comment on above: Performed By: #### 2 697322 #### MIKE [employer] [address] [place] [address] Lipid Profileon 03-03-2019 Cholesterol [Mass/Vol] 164 mg/dL Normal 0-199 [facility] Comment on above: Result Comment: TOTA L CHOLEESTEROL: <200 NORMAL 200 - 239 BORDERLINE HIGH >240 HIGH Performed By: #### 2 168942 #### MIKE [facility]) [address] [place] [address] Cholesterol in HDL [Mass/Vol] 53 mg/dL Normal 40-60 [facility] Comment on above: Performed By: #### 2 162221 #### MIKE [employer] [address] [place] [address] Cholesterol in LDL [Mass/Vol] 98 mg/dL Normal 0-130 [facility] Comment on above: Result Comment: <100 OPTIMAL 100-129 NEAR / ABOVE OPTIMAL 130-159 BORDERLINE HIGH 160-189 HIGH >190 VERY HIGH CALC LDL NOT VALID WHEN TRIGLYCERIDE IS >400 MG/DL Performed By: #### 2 346864 #### MIKE [employer] [place] [address] Cholesterol in VLDL [Mass/Vol] 13 mg/dL Normal 0-40 [facility] Comment on above: Performed By: #### 2 423309 #### MIKE [employer] [place] [address] Triglyceride [Mass/Vol] 66 mg/dL Normal 0-149 [facility] Comment on above: Result Comment: AGE DESIRABLE BORDERLINE HIGH 91 D - 9 Y 0 - 74 75 - 99 > 100 10 - 19 Y 0 - 89 90 - 129 > 130 20 -24 Y 0 - 114 115 - 149 > 150 > 25 0 - 149 150 - 199 200 - 499 Performed By: #### 2 371831 #### MIKE [employer] [address] [place] [address] Microalb/Creat Ratioon 03-03 Creatinine [Mass/Vol] 111.0 mg/dL Normal 20.0-300.0 [facility] Comment on above: Performed By: #### 1 [id number] #### MIKE [email or web address] [address] [place] [address] Creatinine [Mass/Vol] 95 ug/mg High 0-30 [facility] Comment on above: Performed By: #### 1 1998508 #### MIKE [employer] [address] [place] [address] Ur Microalbumin 10.6 mg/dL High 0.0-1.9 [facility] Comment on above: Performed By: #### 1 8053839 #### MIKE [employer] [address] [place] [address] TSHon 03-03-2019 TSH Qn 0.52 mcIU/mL Normal 0.30-5.60 [facility] Comment on above: Performed By: #### 2 100543 #### MIKE [employer] [address] [place] [address] eGFRon 03-03-2019 GFR/1.73 sq M predicted among non-blacks MDRD (S/P/Bld) [Vol rate/Area] mL/min/{1.73_m2} Normal [facility] Comment on above: Order Comment: Order added by Discern Expert. Performed By: #### 1 [id number] #### MIKE [facility]Pl[facility] ([employer]) [employer] [place] [address] XR Spine Lumbosacral Complet e w/ Bendingon 02-08-2019 XR Spine Lumbosacral Complete w/ Bending Exam Date/Time: 02/08/2019 11:16 EDT Reason for Exam: M54.16 Report STUDY: XR Spine Lumbosacral Complete w/ Bending; 02/08/2019 11:16 am INDICATION: M54.16. COMPARISON: 08/12/2018 ACCESSION NUMBER(S): [id number] ORDERING CLINICIAN: Yamilex Muro FINDINGS: 8 views of the lumbar spine including supine and standing AP, lateral and lateral flexion and extension views were obtained. There is no acute fracture identified. There is mild retrolisthesis of L2 on L3 and of L3 on L4. Pvxv-uv-spofyshf disc space narrowing and marginal osteophyte formation [...] by: Jaret Walker MD Technologist: GEE Normal [facility] CMPon 11-02-2018 Albumin [Mass/Vol] 4.2 g/dL Normal 3.4-5.0 [facility] Comment on above: Performed By: #### 2 639393 #### MIKE [facility]) [employer] [place] [address] Albumin/Globulin [Mass ratio] 1.8 {ratio} Normal 1.1-1.9 [facility] Comment on above: Performed By: #### 2 440445 #### MIKE [employer] [address] [place] [address] Alk Phos 98 Int._Unit/L Normal 33-136 [facility] Comment on above: Performed By: #### 2 483359 #### MIKE [employer] [address] [place] [address] ALT [Catalytic activity/Vol] 18 Int._Unit/L Normal 10-52 [facility] Comment on above: Performed By: #### 2 059586 #### MIKE [employer] [address] [place] [address] Anion gap [Moles/Vol] 10 mmol/L Normal 10-20 [facility] Comment on above: Performed By: #### 2 500486 #### [facility] [employer] [place] [address] AST [Catalytic activity/Vol] 17 Int._Unit/L Normal 9-39 [facility] Comment on above: Performed By: #### 2 275550 #### MIKE [employer] [address] [place] [address] Bili Total 0.39 mg/dL Normal 0.00-1.20 [facility] Comment on above: Performed By: #### 2 925723 #### MIKE [employer] [address] [place] [address] Calcium [Mass/Vol] 9.7 mg/dL Normal 8.6-10.3 [facility] Comment on above: Performed By: #### 2 525205 #### MIKE [employer] [address] [place] [address] Chloride [Moles/Vol] 106 mmol/L Normal 98-107 [facility] Comment on above: Performed By: #### 2 443820 #### MIKE [employer] [address] [place] [address] CO2 [Moles/Vol] 27.0 mmol/L Normal 21.0-32.0 [facility] Comment on above: Performed By: #### 2 812573 #### [facility] [address] [place] [address] Creatinine [Mass/Vol] 1.2 mg/dL Normal 0.5-1.3 [facility] Comment on above: Performed By: #### 2 900384 #### MIKE [employer] [address] [place] [address] Globulin (S) [Mass/Vol] 2.0 g/dL Normal 2.0-4.0 [facility] Comment on above: Performed By: #### 2 654760 #### MIKE [employer] [place] [address] Glucose [Mass/Vol] 307 mg/dL High 70-99 [facility] Comment on above: Performed By: #### 2 459737 #### MIKE Rem[address] [address] Potassium [Moles/Vol] 3.9 mmol/L Normal 3.5-5.3 [facility] Comment on above: Performed By: #### 2 555109 #### MIKE Rem[address] [address] Protein [Mass/Vol] 6.5 g/dL Normal 6.4-8.2 [facility] Comment on above: Performed By: #### 2 546970 #### MIKE Rem[address] [address] Sodium [Moles/Vol] 139 mmol/L Normal 136-145 [facility] Comment on above: Performed By: #### 2 002222 #### MIKE Rem[address] [address] Urea nitrogen [Mass/Vol] 23 mg/dL Normal 6-23 [facility] Comment on above: Performed By: #### 2 504036 #### MIKE Rem[address] [address] Urea nitrogen/Creatinine [Mass ratio] 19.2 ratio Normal 5.4-30.0 [facility] Comment on above: Performed By: #### 2 084884 #### MIKE [employer] [place] [address] [id number] 11-02-2018 HbA1c (Bld) [Mass fraction] 8.4 % High 4.0-6.3 [facility] Comment on above: Performed By: #### 3 [id number] #### MIKE Chemistry Manual Subsection [address] [place] [address] eGFRon 11-02-2018 GFR/1.73 sq M predicted among non-blacks MDRD (S/P/Bld) [Vol rate/Area] mL/min/{1.73_m2} [facility] Comment on above: Order Comment: Order added by Discern Expert. Performed By: #### 1 [id number] #### MIKE [employer] [place] [address] XR Spine Lumbar w/ Obliqueso n 08-13-2018 XR Spine Lumbar w/ Obliques Exam Date/Time: 08/12/2018 14:38 EDT Reason for Exam: low back pain with left sided sciatica Report STUDY: XR Spine Lumbar w/ Obliques; 08/12/2018 2:38 pm INDICATION: low back pain with left sided sciatica. COMPARISON: None. ACCESSION NUMBER(S): [id number] ORDERING CLINICIAN: Nancy Mirza FINDINGS: Five views of the lumbar spine including AP, lateral, lateral cone-down and bilateral oblique views were obtained. There is no acute fracture identified. There is mild retrolisthesis of L2 on L3 and of L3 on L4. Lomn-xq-lvobcrgp disc space narrowing and marginal osteophyte formation [...] Signed by: Jaret Walker MD Technologist: KAVITA [facility] Carotid Duplexon 02-09-2018 Carotid Duplex Non-Invasive Vascula r Patient: TR [facility] Rec#: [id number] (Age): 1945(72y) Study Date: 02/09/2018 Room#: Type: Sex: M Reading: AALIYAH Reading: Flo Abdi DO, RPVI Referring: NANCY MIRZA JOHN Contact Worker Lithography: Christie Trinidad Procedure Info: [id number]... Study Quality: Carotid Duplex: adequate Diagnosis: I65.23 [...] PM EDT Non-Invasive Vascular Patient: TR [facility] Rec#: [id number] (Age): 1945(72y) Study Date: 02/09/2018 Room#: Type: Sex: M Reading: AALIYAH Reading: Flo Abdi DO, RPVI Referring: NANCY MIRZA JOHN Contact Worker Lithography: Christie Trinidad Procedure Info: [id number]... Study Quality: Carotid Duplex: adequate Diagnosis: I65.23 [...] index (BMI) [Ratio] 21.9 kg/m2 Paty Ortega ROSS LIFT OPERATOR Work Phone: [facility] 03-12-2025 13:50-0400 Body weight 63.41 kg Paty Ortega ROSS LIFT OPERATOR Work Phone: [facility] 03-12-2025 13:50-0400 Diastolic blood pressure 61 mm[Hg] Patyeduar Ortega ROSS LIFT OPERATOR Work Phone: [facility] 03-12-2025 13:50-0400 Heart rate 69 /min Paty Ortega ROSS LIFT OPERATOR Work Phone: [facility] 03-12-2025 13:50-0400 Systolic blood pressure 166 mm[Hg] Paty Ortega ROSS LIFT OPERATOR Work Phone: [facility] 03-09-2025 09:42-0400 Body height 170.2 cm Woo Grigsby MD Work Phone: [facility] 03-09-2025 09:42-0400 Body mass index (BMI) [Ratio] 21.9 kg/m2 Woo Grigsby MD Work Phone: [facility] 03-09-2025 09:42-0400 Body weight 63.41 kg Woo Grigsby MD Work Phone: [facility] 03-09-2025 09:42-0400 Diastolic blood pressure 54 mm[Hg] Woo Grigsby MD Work Phone: [facility] 03-09-2025 09:42-0400 Heart rate 73 /min Woo Grigsby MD Work Phone: [facility] 03-09-2025 09:42-0400 SaO2% (BldA) [Mass fraction] 98 % Woo Grigsby MD Work Phone: [facility] 03-09-2025 09:42-0400 Systolic blood pressure 172 mm[Hg] Woo Grigsby MD Work Phone: [facility] 02-26-2025 13:01-0400 Body height 172.7 cm Ayanna Albert DO Work Phone: [facility] 02-26-2025 13:01-0400 Body mass index (BMI) [Ratio] 21.47 kg/m2 Ayanna Albert DO Work Phone: [facility] 02-26-2025 13:01-0400 Body weight 64.05 kg Ayanna Albert DO Work Phone: [facility] 02-26-2025 13:01-0400 Diastolic blood pressure 68 mm[Hg] Ayanna Albert DO Work Phone: [facility] 02-26-2025 13:01-0400 Heart rate 72 /min Ayanna Albert DO Work Phone: [facility] 02-26-2025 13:01-0400 Systolic blood pressure 158 mm[Hg] Ayanna Albert DO Work Phone: [facility] 11-14-2024 10:44-0500 Diastolic blood pressure 61 mm[Hg] Woo Grigsby MD Work Phone: [facility] 11-14-2024 10:44-0500 Heart rate 57 /min Woo Grigsby MD Work Phone: [facility] 11-14-2024 10:44-0500 SaO2% (BldA) [Mass fraction] 96 % Woo Grigsby MD Work Phone: [facility] 11-14-2024 10:44-0500 Systolic blood pressure 185 mm[Hg] Woo Grigsby MD Work Phone: [facility] 11-14-2024 10:37-0500 Body height 170.2 cm Woo Grigsby MD Work Phone: [facility] 11-14-2024 10:37-0500 Body mass index (BMI) [Ratio] 23.57 kg/m2 Woo Grigsby MD Work Phone: [facility] 11-14-2024 10:37-0500 Body weight 68.27 kg Woo Grigsby MD Work Phone: [facility] 11-13-2024 11:16-0500 Body mass index (BMI) [Ratio] 23.45 kg/m2 Paty Ortega ROSS LIFT OPERATOR Work Phone: [facility] 11-13-2024 11:16-0500 Body weight 67.9 kg Paty Ortega ROSS LIFT OPERATOR Work Phone: [facility] 11-13-2024 11:16-0500 Diastolic blood pressure 51 mm[Hg] Paty Ortega ROSS LIFT OPERATOR Work Phone: [facility] 11-13-2024 11:16-0500 Heart rate 71 /min Paty Ortega ROSS LIFT OPERATOR Work Phone: [facility] 11-13-2024 11:16-0500 Systolic blood pressure 107 mm[Hg] Paty Ortega ROSS LIFT OPERATOR Work Phone: [facility] 11-09-2024 10:42-0500 Diastolic blood pressure 64 mm[Hg] Kristy Parker MD Work Phone: [facility] 11-09-2024 10:42-0500 Heart rate 58 /min Kristy Parker MD Work Phone: [facility] 11-09-2024 10:42-0500 Systolic blood pressure 160 mm[Hg] Kristy Parker MD Work Phone: [facility] 11-09-2024 10:32-0500 Body height 170.2 cm Kristy Parker MD Work Phone: [facility] 11-09-2024 10:32-0500 Body mass index (BMI) [Ratio] 23.18 kg/m2 Kristy Parker MD Work Phone: [facility] 11-09-2024 10:32-0500 Body weight 67.13 kg Kristy Parker MD Work Phone: [facility] 11-07-2024 09:54-0500 Diastolic blood pressure 61 mm[Hg] Brock Groves MD Work Phone: [facility] 11-07-2024 09:54-0500 Systolic blood pressure 143 mm[Hg] Brock Groves MD Work Phone: [facility] 11-07-2024 09:51-0500 Body height 170.2 cm Brock Groves MD Work Phone: [facility] 11-07-2024 09:51-0500 Body mass index (BMI) [Ratio] 23.02 kg/m2 Brock Groves MD Work Phone: [facility] 11-07-2024 09:51-0500 Body temperature 97.39 [degF] Brock Groves MD Work Phone: [facility] 11-07-2024 09:51-0500 Body weight 66.68 kg Brock Groves MD Work Phone: [facility] 11-07-2024 09:51-0500 Heart rate 63 /min Brock Groves MD Work Phone: [facility] 11-07-2024 09:51-0500 SaO2% (BldA) [Mass fraction] 100 % Brock Groves MD Work Phone: [facility] 10-28-2024 11:06-0500 Diastolic blood pressure 51 mm[Hg] Nidia Garay MD Work Phone: [facility] 10-28-2024 11:06-0500 Heart rate 68 /min Nidia Garay MD Work Phone: [facility] 10-28-2024 11:06-0500 Respiratory rate 14 /min Nidia Garay MD Work Phone: [facility] 10-28-2024 11:06-0500 SaO2% (BldA) [Mass fraction] 94 % Nidia Garay MD Work Phone: [facility] 10-28-2024 11:06-0500 Systolic blood pressure 153 mm[Hg] Nidia Garay MD Work Phone: [facility] 10-28-2024 07:24-0500 Body temperature 97.59 [degF] Nidia Garay MD Work Phone: [facility] 10-28-2024 05:11-0500 Body mass index (BMI) [Ratio] 22.44 kg/m2 Nidia Garay MD Work Phone: [facility] 10-28-2024 05:11-0500 Body weight 65 kg Nidia Garay MD Work Phone: [facility] 10-27-2024 16:36-0500 Body height 170.2 cm Nidia Garay MD Work Phone: [facility] 10-27-2024 14:18-0500 SaO2% (BldA) [Mass fraction] 97.3 % Nidia Garay MD Work Phone: [facility] 10-18-2024 13:46-0500 Diastolic blood pressure 61 mm[Hg] Woo Grigsby MD Work Phone: [facility] 10-18-2024 13:46-0500 Heart rate 67 /min Woo Grigsby MD Work Phone: [facility] 10-18-2024 13:46-0500 SaO2% (BldA) [Mass fraction] 100 % Woo Grigsby MD Work Phone: [facility] 10-18-2024 13:46-0500 Systolic blood pressure 103 mm[Hg] Woo Grigsby MD Work Phone: [facility] 10-18-2024 13:27-0500 Body height 172.7 cm Woo Grigsby MD Work Phone: [facility] 10-18-2024 13:27-0500 Body mass index (BMI) [Ratio] 22.52 kg/m2 Woo Grigsby MD Work Phone: [facility] 10-18-2024 13:27-0500 Body weight 67.18 kg Woo Grigsby MD Work Phone: [facility] 08-29-2024 13:04-0400 Diastolic blood pressure 72 mm[Hg] Ayanna Albert DO Work Phone: [facility] 08-29-2024 13:04-0400 Systolic blood pressure 168 mm[Hg] Ayanna Young DO Work Phone: [facility] 08-29-2024 12:57-0400 Body height 172.7 cm Ayanna Albert DO Work Phone: [facility] 08-29-2024 12:57-0400 Body mass index (BMI) [Ratio] 22.72 kg/m2 Ayanna Albert DO Work Phone: [facility] 08-29-2024 12:57-0400 Body weight 67.77 kg Ayanna Albert DO Work Phone: [facility] 08-29-2024 12:57-0400 Heart rate 64 /min Ayanna Albert DO Work Phone: [facility] 07-21-2024 14:12-0400 Diastolic blood pressure 68 mm[Hg] Paty Ortega ROSS LIFT OPERATOR Work Phone: [facility] 07-21-2024 14:12-0400 Systolic blood pressure 166 mm[Hg] Paty Ortega ROSS LIFT OPERATOR Work Phone: [facility] 07-21-2024 13:38-0400 Body mass index (BMI) [Ratio] 22.44 kg/m2 Paty Ortega ROSS LIFT OPERATOR Work Phone: [facility] 07-21-2024 13:38-0400 Body weight 66.95 kg Paty Ortega ROSS LIFT OPERATOR Work Phone: [facility] 07-21-2024 13:38-0400 Heart rate 69 /min Paty Ortega ROSS LIFT OPERATOR Work Phone: [facility] 04-24-2024 10:09-0400 Diastolic blood pressure 70 mm[Hg] Woo Grigsby MD Work Phone: [facility] Comment on above: Manual 04-24-2024 10:09-0400 Systolic blood pressure 150 mm[Hg] Woo Day Work Phone: [facility] Comment on above: Manual 04-24-2024 09:44-0400 Body height 172.7 cm Woo Work Phone: [facility] 04-24-2024 09:44-0400 Body mass index (BMI) [Ratio] 22.43 kg/m2 Woo Day Work Phone: [facility] 04-24-2024 09:44-0400 Body weight 66.91 kg Woo Day Work Phone: [facility] 04-24-2024 09:44-0400 Heart rate 53 /min Woo Work Phone: [facility] 04-24-2024 09:44-0400 SaO2% (BldA) [Mass fraction] 96 % Work Phone: [facility] 02-24-2024 13:44-0400 Body height 172.7 cm Madie BERMAN DNP Work Phone: [facility] 02-24-2024 13:44-0400 Body mass index (BMI) [Ratio] 23.11 kg/m2 Madie BERMAN, DNP Work Phone: [facility] 02-24-2024 13:44-0400 Body weight 68.95 kg Madie BERMAN DNP Work Phone: [facility] 02-24-2024 13:44-0400 Diastolic blood pressure 68 mm[Hg] Madie BERMAN DNP Work Phone: [facility] 02-24-2024 13:44-0400 Heart rate 76 /min Madie BERMAN DNP Work Phone: [facility] 02-24-2024 13:44-0400 Systolic blood pressure 142 mm[Hg] Madie BERMAN DNP Work Phone: [facility] 02-18-2024 12:48-0400 Body mass index (BMI) [Ratio] 23.11 kg/m2 Paty Ortega ROSS LIFT OPERATOR Work Phone: [facility] 02-18-2024 12:48-0400 Body weight 68.95 kg Paty Ortega ROSS LIFT OPERATOR Work Phone: [facility] 02-18-2024 12:48-0400 Diastolic blood pressure 79 mm[Hg] Paty Ortega ROSS LIFT OPERATOR Work Phone: [facility] 02-18-2024 12:48-0400 Heart rate 67 /min Paty Ortega ROSS LIFT OPERATOR Work Phone: [facility] 02-18-2024 12:48-0400 Systolic blood pressure 131 mm[Hg] Paty Ortega ROSS LIFT OPERATOR Work Phone: [facility] 01-14-2024 11:02-0400 Body height 172.7 cm Aylin Lacy ROSS LIFT OPERATOR Work Phone: [facility] 01-14-2024 11:02-0400 Body mass index (BMI) [Ratio] 24.01 kg/m2 Aylin Lacy ROSS LIFT OPERATOR Work Phone: [facility] 01-14-2024 11:02-0400 Body weight 71.62 kg Aylin Lacy ROSS LIFT OPERATOR Work Phone: [facility] 01-14-2024 11:02-0400 Diastolic blood pressure 78 mm[Hg] Aylin Arintj ROSS LIFT OPERATOR Work Phone: [facility] 01-14-2024 11:02-0400 Heart rate 70 /min Aylin Lacy ROSS LIFT OPERATOR Work Phone: [facility] 01-14-2024 11:02-0400 SaO2% (BldA) [Mass fraction] 94 % Aylin Regino ROSS LIFT OPERATOR Work Phone: [facility] 01-14-2024 11:02-0400 Systolic blood pressure 139 mm[Hg] Aylin Lacy ROSS LIFT OPERATOR Work Phone: [facility] 12-01-2023 08:00-0500 Body temperature 97.9 [degF] Kathleen Story MD Work Phone: [facility] 12-01-2023 08:00-0500 Diastolic blood pressure 73 mm[Hg] Kathleen Story MD Work Phone: [facility] 12-01-2023 08:00-0500 Heart rate 91 /min Kathleen Story MD Work Phone: [facility] 12-01-2023 08:00-0500 Respiratory rate 18 /min Kathleen Story MD Work Phone: [facility] 12-01-2023 08:00-0500 SaO2% (BldA) [Mass fraction] 94 % Kathleen Story MD Work Phone: [facility] 12-01-2023 08:00-0500 Systolic blood pressure 134 mm[Hg] Kathleen Story MD Work Phone: [facility] 12-01-2023 06:00-0500 Body mass index (BMI) [Ratio] 23.96 kg/m2 Kathleen Story MD Work Phone: [facility] 12-01-2023 06:00-0500 Body weight 69.4 kg Kathleen Story MD Work Phone: [facility] 11-27-2023 04:06-0500 SaO2% (BldA) [Mass fraction] 96.0 % Kathleen Story MD Work Phone: [facility] 11-27-2023 03:00-0500 Body height 170.2 cm Kathleen Story MD Work Phone: [facility] 11-27-2023 01:39-0500 Diastolic blood pressure 79 mm[Hg] Ger Aguilera DO Work Phone: [facility] 11-27-2023 01:39-0500 Heart rate 77 /min Ger Aguilera DO Work Phone: [facility] 11-27-2023 01:39-0500 Respiratory rate 20 /min Ger Aguilera DO Work Phone: [facility] 11-27-2023 01:39-0500 SaO2% (BldA) [Mass fraction] 95 % Ger Aguilera DO Work Phone: [facility] 11-27-2023 01:39-0500 Systolic blood pressure 148 mm[Hg] Ger Aguilera DO Work Phone: [facility] 11-26-2023 21:22-0500 Body height 172.7 cm Ger Aguilera DO Work Phone: [facility] 11-26-2023 21:22-0500 Body mass index (BMI) [Ratio] 22.5 kg/m2 Ger Aguilera DO Work Phone: [facility] 11-26-2023 21:22-0500 Body temperature 97.11 [degF] Ger Aguilera DO Work Phone: [facility] 11-26-2023 21:22-0500 Body weight 67.13 kg Ger Aguilera DO Work Phone: [facility] 10-21-2023 08:54-0500 Body height 172.7 cm Woo Grigsby MD Work Phone: [facility] 10-21-2023 08:54-0500 Body mass index (BMI) [Ratio] 22.61 kg/m2 Woo Grigsby MD Work Phone: [facility] 10-21-2023 08:54-0500 Body weight 67.45 kg Woo Grigsby MD Work Phone: [facility] 10-21-2023 08:54-0500 Diastolic blood pressure 67 mm[Hg] Woo Grigsby MD Work Phone: [facility] 10-21-2023 08:54-0500 Heart rate 65 /min Woo Grigsby MD Work Phone: [facility] 10-21-2023 08:54-0500 SaO2% (BldA) [Mass fraction] 99 % Woo Grigsby MD Work Phone: [facility] 10-21-2023 08:54-0500 Systolic blood pressure 128 mm[Hg] Woo Grigsby MD Work Phone: [facility] 10-13-2023 11:55-0500 SaO2% (BldA) [Mass fraction] 92 % Praful Pineda MD Work Phone: [facility] 10-13-2023 10:39-0500 Heart rate 97 /min Praful Pineda MD Work Phone: [facility] 10-13-2023 09:35-0500 Body height 171.5 cm Praful Pineda MD Work Phone: [facility] 10-13-2023 09:35-0500 Body mass index (BMI) [Ratio] 24.38 kg/m2 Praful Pineda MD Work Phone: [facility] 10-13-2023 09:35-0500 Body weight 71.7 kg Praful Pineda MD Work Phone: [facility] 10-12-2023 20:45-0500 Body temperature 98.1 [degF] Praful Pineda MD Work Phone: [facility] 10-12-2023 20:45-0500 Diastolic blood pressure 85 mm[Hg] Praful Pineda MD Work Phone: [facility] 10-12-2023 20:45-0500 Respiratory rate 16 /min Praful Pineda MD Work Phone: [facility] 10-12-2023 20:45-0500 Systolic blood pressure 123 mm[Hg] Praful Pineda MD Work Phone: [facility] 10-11-2023 01:56-0500 Body temperature 37.0 Praful Pineda MD Work Phone: [facility] 10-11-2023 01:56-0500 SaO2% (BldA) [Mass fraction] 93 % Praful Pineda MD Work Phone: [facility] 10-08-2023 11:12-0500 Diastolic blood pressure 66 mm[Hg] Mary Yan MD Work Phone: [facility] 10-08-2023 11:12-0500 Heart rate 67 /min Mary Yan MD Work Phone: [facility] 10-08-2023 11:12-0500 Systolic blood pressure 199 mm[Hg] Mary Yan MD Work Phone: [facility] 10-08-2023 11:05-0500 Body mass index (BMI) [Ratio] 24.18 kg/m2 Mary Yan MD Work Phone: [facility] 10-08-2023 11:05-0500 Body weight 72.12 kg Mary Yan MD Work Phone: [facility] 08-25-2023 14:11-0400 Body weight 72.12 kg Ayanna Albert DO Work Phone: [facility] 08-25-2023 14:11-0400 Diastolic blood pressure 62 mm[Hg] Ayanna Young DO Work Phone: [facility] 08-25-2023 14:11-0400 Heart rate 62 /min Ayanna Young DO Work Phone: [facility] 08-25-2023 14:11-0400 Systolic blood pressure 144 mm[Hg] Ayanna Young DO Work Phone: [facility] 07-27-2023 14:48-0400 Diastolic blood pressure 78 mm[Hg] Nancy Mirza Work Phone: [facility] Work Phone: 07-27-2023 14:48-0400 Systolic blood pressure 152 mm[Hg] Nancy Mirza Work Phone: [facility] Work Phone: 07-27-2023 14:45-0400 Body height 172.72 cm Nancy Mirza Work Phone: [facility] Work Phone: 07-27-2023 14:45-0400 Body mass index (BMI) [Ratio] 24.05 kg/m2 AvilaSukhi Mirza Work Phone: [facility] Work Phone: 07-27-2023 14:45-0400 Body surface area Derived from formula 1.85 m2 AvilaSukhi Mirza Work Phone: [facility] Work Phone: 07-27-2023 14:45-0400 Body weight 71.76 kg AvilaSukhi Mirza Work Phone: [facility] Work Phone: 07-27-2023 14:45-0400 Diastolic blood pressure 88 mm[Hg] AvilaSukhi Mirza Work Phone: [facility] Work Phone: 07-27-2023 14:45-0400 Heart rate 70 /min AvilaSukhi Tabareszonia Work Phone: [facility] Work Phone: 07-27-2023 14:45-0400 SaO2% (BldA) [Mass fraction] 97 % AvilaSukhi Mirza Work Phone: [facility] Work Phone: 07-27-2023 14:45-0400 Systolic blood pressure 160 mm[Hg] Nancy Isbell Koreyeleazar Work Phone: [facility] Work Phone: 02-19-2023 13:02-0400 Body mass index (BMI) [Ratio] 24.33 kg/m2 Paty Ortega ROSS LIFT OPERATOR Work Phone: [facility] 02-19-2023 13:02-0400 Body weight 72.58 kg Paty Ortega ROSS LIFT OPERATOR Work Phone: [facility] 02-19-2023 13:02-0400 Diastolic blood pressure 83 mm[Hg] Paty Ortega ROSS LIFT OPERATOR Work Phone: [facility] 02-19-2023 13:02-0400 Heart rate 73 /min Paty Ortega ROSS LIFT OPERATOR Work Phone: [facility] 02-19-2023 13:02-0400 Systolic blood pressure 116 mm[Hg] Paty Ortega ROSS LIFT OPERATOR Work Phone: [facility] 10-19-2022 10:01-0500 Diastolic blood pressure 69 mm[Hg] Paty Ortega ROSS LIFT OPERATOR Work Phone: [facility] 10-19-2022 10:01-0500 Heart rate 89 /min Paty Ortega ROSS LIFT OPERATOR Work Phone: [facility] 10-19-2022 10:01-0500 Systolic blood pressure 149 mm[Hg] Paty Ortega ROSS LIFT OPERATOR Work Phone: [facility] 10-19-2022 09:56-0500 Body mass index (BMI) [Ratio] 24.04 kg/m2 Paty Ortega ROSS LIFT OPERATOR Work Phone: [facility] 10-19-2022 09:56-0500 Body weight 71.71 kg Paty Ortega ROSS LIFT OPERATOR Work Phone: [facility] 06-19-2022 10:04-0400 Diastolic blood pressure 90 mm[Hg] Paty Ortega ROSS LIFT OPERATOR Work Phone: [facility] 06-19-2022 10:04-0400 Systolic blood pressure 184 mm[Hg] Paty Ortega ROSS LIFT OPERATOR Work Phone: [facility] 06-19-2022 09:40-0400 Heart rate 72 /min Paty Ortega ROSS LIFT OPERATOR Work Phone: [facility] 06-19-2022 09:36-0400 Body height 172.7 cm Paty Ortega ROSS LIFT OPERATOR Work Phone: [facility] 06-19-2022 09:36-0400 Body mass index (BMI) [Ratio] 24.48 kg/m2 Paty Ortega ROSS LIFT OPERATOR Work Phone: [facility] 06-19-2022 09:36-0400 Body weight 73.03 kg Paty Ortega ROSS LIFT OPERATOR Work Phone: [facility] 02-13-2022 11:13-0400 Diastolic blood pressure 74 mm[Hg] Mary Yan MD Work Phone: [facility] 02-13-2022 11:13-0400 Systolic blood pressure 138 mm[Hg] Mary Yan MD Work Phone: [facility] 02-13-2022 11:09-0400 Body height 172.7 cm Mary Yan MD Work Phone: [facility] 02-13-2022 11:09-0400 Body mass index (BMI) [Ratio] 25.09 kg/m2 Mary Yan MD Work Phone: [facility] 02-13-2022 11:09-0400 Body weight 74.84 kg Mary Yan MD Work Phone: [facility] 02-13-2022 11:09-0400 Heart rate 71 /min Mary Yan MD Work Phone: [facility] 10-13-2021 14:07-0500 Diastolic blood pressure 72 mm[Hg] Paty Ortega ROSS LIFT OPERATOR Work Phone: [facility] 10-13-2021 14:07-0500 Heart rate 74 /min Paty Ortega ROSS LIFT OPERATOR Work Phone: [facility] 10-13-2021 14:07-0500 Systolic blood pressure 163 mm[Hg] Paty Ortega ROSS LIFT OPERATOR Work Phone: [facility] 10-13-2021 13:59-0500 Body mass index (BMI) [Ratio] 24.89 kg/m2 Paty Ortega ROSS LIFT OPERATOR Work Phone: [facility] 10-13-2021 13:59-0500 Body weight 74.25 kg Paty Ortega ROSS LIFT OPERATOR Work Phone: [facility] 06-20-2021 14:38-0400 Diastolic blood pressure 68 mm[Hg] Paty Ortega ROSS LIFT OPERATOR Work Phone: [facility] 06-20-2021 14:38-0400 Heart rate 70 /min Paty Ortega ROSS LIFT OPERATOR Work Phone: [facility] 06-20-2021 14:38-0400 Systolic blood pressure 163 mm[Hg] Paty Ortega ROSS LIFT OPERATOR Work Phone: [facility] 06-20-2021 14:33-0400 Body height 172.7 cm Paty Ortega ROSS LIFT OPERATOR Work Phone: [facility] 06-20-2021 14:33-0400 Body mass index (BMI) [Ratio] 25.32 kg/m2 Paty Ortega ROSS LIFT OPERATOR Work Phone: [facility] 06-20-2021 14:33-0400 Body weight 75.52 kg Paty Ortega ROSS LIFT OPERATOR Work Phone: [facility] 02-18-2021 15:24-0400 Body height 172.7 cm Mary Yan MD Work Phone: [facility] 02-18-2021 15:24-0400 Body mass index (BMI) [Ratio] 25.54 kg/m2 Mary Yan MD Work Phone: [facility] 02-18-2021 15:24-0400 Body weight 76.2 kg Mary Yan MD Work Phone: [facility] 02-18-2021 15:24-0400 Diastolic blood pressure 70 mm[Hg] Mary Yan MD Work Phone: [facility] 02-18-2021 15:24-0400 Heart rate 76 /min Mary Yan MD Work Phone: [facility] 02-18-2021 15:24-0400 Systolic blood pressure 194 mm[Hg] Mary Yan MD Work Phone: [facility] 10-18-2020 13:36-0500 BMI (Body Mass Index) 25.54 kg/m2 [facility] 10-18-2020 13:36-0500 Body weight 76.2 kg [facility] 10-18-2020 13:36-0500 BP Diastolic 69 mm[Hg] [facility] 10-18-2020 13:36-0500 BP Systolic 163 mm[Hg] [facility] 10-18-2020 13:36-0500 Height 172.7 cm [facility] 10-18-2020 13:36-0500 Pulse (Heart Rate) 72 /min [facility] 06-18-2020 10:01-0400 BMI (Body Mass Index) 25.39 kg/m2 [facility] 06-18-2020 10:01-0400 Body weight 75.75 kg [facility] 06-18-2020 10:01-0400 BP Diastolic 71 mm[Hg] [facility] 06-18-2020 10:01-0400 BP Systolic 172 mm[Hg] [facility] 06-18-2020 10:01-0400 Height 172.7 cm [facility] 06-18-2020 10:01-0400 Pulse (Heart Rate) 72 /min [facility] 11-16-2019 10:40-0500 BMI (Body Mass Index) 25.09 kg/m2 [facility] 11-16-2019 10:40-0500 Body weight 74.84 kg [facility] 11-16-2019 10:40-0500 BP Diastolic 68 mm[Hg] [facility] 11-16-2019 10:40-0500 BP Systolic 178 mm[Hg] [facility] 11-16-2019 10:40-0500 Height 172.7 cm [facility] 11-16-2019 10:40-0500 Pulse (Heart Rate) 75 /min [facility] 07-17-2019 10:48-0400 BMI (Body Mass Index) 25.09 kg/m2 Keeley Patton [facility] 07-17-2019 10:48-0400 Body weight 74.84 kg Keeley Patton [facility] 07-17-2019 10:48-0400 BP Diastolic 69 mm[Hg] Keeley Patton [facility] 07-17-2019 10:48-0400 BP Systolic 152 mm[Hg] Keeley Patton [facility] 07-17-2019 10:48-0400 Height 172.7 cm Keeley Patton [facility] 07-17-2019 10:48-0400 Pulse (Heart Rate) 71 /min Keeley Patton [facility] 03-13-2019 12:07-0400 BMI (Body Mass Index) 25.24 kg/m2 Mary Yan [facility] 03-13-2019 12:07-0400 Body weight 75.3 kg Mary Yan [facility] 03-13-2019 12:07-0400 BP Diastolic 67 mm[Hg] Mary Yan [facility] 03-13-2019 12:07-0400 BP Systolic 160 mm[Hg] Mary Yan [facility] 03-13-2019 12:07-0400 Height 172.7 cm Mary Yan [facility] 03-13-2019 12:07-0400 Pulse (Heart Rate) 72 /min Mary Yan [facility] 11-11-2018 11:08-0500 BMI (Body Mass Index) 26 kg/m2 Keeely Patton [facility] 11-11-2018 11:08-0500 BP Diastolic 74 mm[Hg] Keeley Patton [facility] 11-11-2018 11:08-0500 BP Systolic 172 mm[Hg] Keeley Patton [facility] 11-11-2018 11:08-0500 Height 172.7 cm Keeley Patton [facility] 11-11-2018 11:08-0500 Pulse (Heart Rate) 71 /min Keeley Patton [facility] 11-11-2018 11:08-0500 Weight 77.56 kg Keeley Patton [facility] 07-05-2018 10:05-0400 BMI (Body Mass Index) 25.48 kg/m2 Paty Ortega [facility] 07-05-2018 10:05-0400 BP Diastolic 58 mm[Hg] Paty Ortega [facility] 07-05-2018 10:05-0400 BP Systolic 130 mm[Hg] Paty Ortega [facility] 07-05-2018 10:05-0400 Height 172.7 cm Paty [facility] 07-05-2018 10:05-0400 Pulse (Heart Rate) 84 /min Paty Ortega [facility] 07-05-2018 10:05-0400 Weight 76.02 kg Paty [facility] 02-28-2018 10:14-0400 BMI (Body Mass Index) 26.15 kg/m2 [facility] 02-28-2018 10:14-0400 BP Diastolic 64 mm[Hg] [facility] 02-28-2018 10:14-0400 BP Systolic 154 mm[Hg] [facility] 02-28-2018 10:14-0400 Height 172.7 cm [facility] 02-28-2018 10:14-0400 Pulse (Heart Rate) 76 /min [facility] 02-28-2018 10:14-0400 Weight 78.02 kg [facility] 10-29-2017 10:08-0500 BMI (Body Mass Index) 25.24 kg/m2 Mary Yan [facility] Work Phone: 10-29-2017 10:08-0500 BP Diastolic 64 mm[Hg] Mary Yan [facility] Work Phone: 10-29-2017 10:08-0500 BP Systolic 142 mm[Hg] Mary Yan [facility] Work Phone: 10-29-2017 10:08-0500 Height 172.7 cm Mary Yan [facility] Work Phone: 10-29-2017 10:08-0500 Pulse (Heart Rate) 72 /min Mary Yan [facility] Work Phone: 10-29-2017 10:08-0500 Weight 75.3 kg Mary Yan [facility] Work Phone: 06-17-2017 11:04-0400 BMI (Body Mass Index) 24.78 kg/m2 Ya Parker [facility] Work Phone: 06-17-2017 11:04-0400 BP Diastolic 62 mm[Hg] Ya Parker [facility] Work Phone: 06-17-2017 11:04-0400 BP Systolic 148 mm[Hg] Ya Parker [facility] Work Phone: 06-17-2017 11:04-0400 Height 172.7 cm Ya Parker [facility] Work Phone: 06-17-2017 11:04-0400 Pulse (Heart Rate) 64 /min Ya Parker [facility] Work Phone: 06-17-2017 11:04-0400 Weight 73.94 kg Ya Parker [facility] Work Phone: Encounters Encounter Date Encounter Type Care Provider Facility Start: 03-29-2025 End: 03-29-2025 ambulatory WOO GRIGSBY [facility] Start: 03-27-2025 End: 03-27-2025 Follow-up encounter Woo Grigsby MD Work Phone: [facility] Comment on above: Basic metabolic pane l Start: 03-12-2025 End: 03-12-2025 Office outpatient visit 25 minutes Paty Ortega [facility] Work Phone: [facility] [place] Comment on above: Type 1 diabetes suzie itus with diabetic neuropathy (HCC) (Primary Dx); Pure hypercholesterolemia; Essential hypertension Start: 03-12-2025 End: 03-12-2025 ambulatory PATY ORTEGA [facility] Ambulatory Start: 03-09-2025 End: 03-09-2025 Office outpatient visit 25 minutes Woo Grigsby MD Work Phone: [facility] Comment on above: Coronary artery dise 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 (Primary Dx); NSTEMI (non-ST elevated myocardial infarction) (HCC); Hospital discharge follow-up Start: 03-09-2025 End: 03-09-2025 ambulatory RYLEY JETER [facility] Ambulatory Start: 02-28-2025 End: 03-05-2025 Evaluation and management of inpatient [facility] Start: 02-26-2025 End: 02-26-2025 Office outpatient visit 15 minutes Ayanna M Young Work Phone: [facility] Comment on above: 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); Essential hypertension; Pure hypercholesterolemia; Type 1 diabetes mellitus with diabetic neuropathy Start: 02-26-2025 End: 02-26-2025 ambulatory AYANNACAM ALBERT [facility] Ambulatory Start: 02-16-2025 End: 02-16-2025 Refill Paty Ortega [employer] Work Phone: [facility] Comment on above: Type 1 diabetes suzie itus with diabetic neuropathy (HCC) (Primary Dx) Start: 02-14-2025 End: 02-14-2025 Documentation procedure Ej Guidry MA [facility] Comment on above: Letter refaxed Start: 02-12-2025 End: 02-13-2025 Orders Only Paty Ortega [employer] OPER[employer] Work Phone: [facility] Start: 02-09-2025 Encounter for other preprocedural examination Kerwin Tamayo [facility] Start: 02-06-2025 End: 02-06-2025 ambulatory Ryley Jeter MD Work Phone: [facility] Work Phone: Start: 02-06-2025 End: 02-06-[address] Kerwin Tamayo MD -Laboratory, [facility] Start: 02-06-2025 End: 02-06-2025 ambulatory Ryley Jeter Facility:[facility] Start: 01-01-2025 End: 01-01-2025 Refill Paty Ortega [employer]PER[employer] Work Phone: [facility] Comment on above: Type 1 diabetes suzie itus with diabetic neuropathy (HCC) (Primary Dx) Start: 12-08-2024 End: 12-08-2024 Refill Paty Ortega [employer] OPERATOR Work Phone: [facility] Comment on above: Type 1 diabetes suzie itus with diabetic neuropathy (HCC) Start: 11-20-2024 End: 11-20-2024 Refsander Ortega [employer] OPERATOR Work Phone: [facility] Start: 11-14-2024 End: 11-14-2024 Office outpatient visit 25 minutes Woo Grigsby MD Work Phone: [facility] Comment on above: Coronary artery dise 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 (Primary Dx); Claudication in peripheral vascular disease; Bilateral carotid artery stenosis Start: 11-14-2024 End: 11-14-2024 ambulatory [facility] Ambulatory Start: 11-13-2024 End: 11-13-2024 Office outpatient visit 25 minutes Paty Ortega [employer] OPERATOR Work Phone: [facility] [place] Comment on above: Type 1 diabetes suzie itus with diabetic neuropathy (HCC) (Primary Dx); Pure hypercholesterolemia; Essential hypertension Start: 11-13-2024 End: 11-13-2024 ambulatory [facility] Ambulatory Start: 11-09-2024 End: 11-09-2024 Office outpatient new 60 minutes Sandi Phan PA-C Work Phone: [facility] Comment on above: Bilateral carotid ar radha stenosis Start: 11-09-2024 End: 11-09-2024 ambulatory SANDI PHAN [facility] Ambulatory Start: 11-07-2024 End: 11-07-2024 Office outpatient new 45 minutes Brock Groves MD Work Phone: [facility] Comment on above: Coronary artery dise 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 (Primary Dx) Start: 11-07-2024 End: 11-11-2024 Orders Only Sandi Phan PA-C Work Phone: [facility] Comment on above: Bilateral carotid ar radha stenosis (Primary Dx) Start: 11-06-2024 End: 11-07-2024 Refill Paty Ortega [employer] OPERATOR Work Phone: [facility] Comment on above: Type 1 diabetes suzie itus with diabetic neuropathy (HCC) (Primary Dx) Start: 10-27-2024 End: 10-28-2024 ambulatory CINTIA CLIFFORD [facility] Start: 10-27-2024 End: 10-28-2024 Emergency department patient visit Elías Rodriguez MD Work Phone: [facility] Inter[facility] Unit Start: 10-23-2024 End: 10-23-2024 Chart abstracting Ej Guidry MA [facility] Comment on above: Medication Refill Start: 10-18-2024 End: 10-18-2024 Office outpatient visit 25 minutes Woo Grigsby MD Work Phone: [facility] Comment on above: Claudication in sheyla pheral vascular disease (HCC) (Primary Dx); Encounter for examination of blood pressure with abnormal findings; 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; Congestive heart failure, unspecified HF chronicity, unspecified heart failure type (HCC); Hypertensive emergency Start: 10-18-2024 End: 10-18-2024 Patient encounter status Woo Grigsby MD Work Phone: [facility] Start: 10-18-2024 End: 10-18-[facility] Start: 10-18-2024 End: 10-18-2024 Encounter for examination of blood pressure with abnormal findings WOO GRIGSBY [facility] Ambulatory Start: 10-06-2024 End: 10-06-2024 Refill Luisa Easley RN [facility] Start: 10-04-2024 ambulatory RYLEY JETER [facility] Ambulatory Start: 09-28-2024 ambulatory RYLEY JETER [facility] Ambulatory Start: 09-26-2024 End: 09-26-2024 Refill Paty Ortega CNP Work Phone: [facility] Comment on above: Type 1 diabetes suzie itus with diabetic neuropathy (HCC) (Primary Dx) Start: 09-21-2024 End: 09-21-2024 ambulatory Chalon Steffany Facility:[facility] Start: 09-13-2024 ambulatory Malika Alaniz [facility] Start: 09-12-2024 ambulatory [facility] Start: 09-12-2024 End: 09-14-2024 Evaluation and management of inpatient Chalcam Steffany Facility:[facility] Start: 09-12-2024 ambulatory Young Koroma [facility] Start: 08-29-2024 End: 08-29-2024 Office outpatient visit 15 minutes Ayanna Albert DO Work Phone: [facility] Comment on above: 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); Essential hypertension; Type 1 diabetes mellitus with diabetic neuropathy Start: 08-29-2024 End: 08-29-2024 ambulatory [facility] Ambulatory Start: 07-21-2024 End: 07-21-2024 Office outpatient visit 25 minutes Paty Ortega CNP Work Phone: [facility] [place] Comment on above: Type 1 diabetes suzie itus with diabetic neuropathy (HCC) (Primary Dx); Pure hypercholesterolemia; Essential hypertension Start: 07-21-2024 End: 07-21-2024 ambulatory PATY ORTEGA [facility] Ambulatory Start: 07-07-2024 End: 07-07-2024 ambulatory NO ASSIGNED PCP GENERIC PROVIDER [facility] Start: 05-17-2024 End: 05-17-2024 ambulatory Ryley Jeter Facility:[facility] Start: 04-24-2024 End: 04-24-2024 Office outpatient visit 25 minutes Woo Grigsby MD Work Phone: [facility] Comment on above: 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 (Primary Dx); Primary hypertension; Dyslipidemia Start: 04-24-2024 End: 04-24-2024 ambulatory RYLEY JETER [facility] Ambulatory Start: 04-06-2024 End: 04-06-2024 ambulatory Chalcam Steffany Facility:[facility] Start: 03-28-2024 Refill Ej Guidry MA [facility] Comment on above: Medication Refill Start: 03-22-2024 End: 03-22-2024 ambulatory Chalcam Steffany Facility:[facility] Start: 03-06-2024 Refill Paty Ortega CNP Work Phone: [facility] [place] Comment on above: Type 1 diabetes suzie itus with diabetic neuropathy (HCC) Start: 02-24-2024 End: 02-24-2024 Office outpatient visit 15 minutes Madie BERMAN, [facility] Work Phone: [facility] Comment on above: 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); Acute on chronic systolic (congestive) heart failure (Multi); Type 1 diabetes mellitus with diabetic neuropathy (Multi) Start: 02-18-2024 End: 02-18-2024 Office outpatient visit 25 minutes Paty Ortega [employer]S LIFT OPERATOR Work Phone: [facility] [place] Comment on above: Type 1 diabetes suzie itus with diabetic neuropathy (HCC) (Primary Dx); Pure hypercholesterolemia; Essential hypertension Start: 02-07-2024 End: 02-07-2024 ambulatory NO ASSIGNED PCP GENERIC PROVIDER [facility] Start: 01-17-2024 Refill Ej Guidry MA [facility] Comment on above: Medication Refill Start: 01-14-2024 End: 01-14-2024 Office outpatient visit 15 minutes Aylin Lacy [employer]S LIFT OPERATOR Work Phone: [facility] Comment on above: Cardiovascular stres s test abnormal (Primary Dx); Dyslipidemia; 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; Primary hypertension Start: 12-29-2023 Refill Ej Guidry MA [facility] Comment on above: Medication Refill Start: 12-15-2023 End: 12-15-2023 ambulatory [facility] Work Phone: Start: 12-15-2023 End: 12-15-2023 Patient encounter procedure [facility] [place] Work Phone: Start: 11-29-2023 End: 11-29-2023 Subsequent hospital visit by physician Jovan Paul [facility] Comment on above: Arrived Start: 11-27-2023 End: 12-01-2023 Evaluation and management of inpatient Generic [facility] Work Phone: [facility] Start: 11-26-2023 End: 11-27-2023 Emergency department patient visit Ger Aguilera DO Work Phone: [facility] Emergency Medicine Comment on above: NSTEMI (non-ST eleva chinyere myocardial infarction) ([facility]) (Primary Dx); MADONNA (acute kidney injury) ([facility]); Acute combined systolic and diastolic congestive heart failure ([facility]); Type 1 diabetes mellitus with other specified complication ([facility]) Start: 11-25-2023 End: 11-25-2023 [facility] Work Phone: Start: 11-25-2023 End: 11-25-2023 Patient encounter procedure [facility] Work Phone: Start: 11-17-2023 End: 11-17-2023 [facility] Work Phone: Start: 11-17-2023 End: 11-17-[address] 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 (Primary Dx); Dyslipidemia; Congestive heart failure, unspecified HF chronicity, unspecified heart failure type (HCC) Start: 10-11-2023 End: 10-11-2023 Subsequent hospital visit by physician Jovan Paul [facility] Start: 10-11-2023 Critical care ill/in jured patient init 30-74 min Aury Rouse DO Work Phone: [facility] Work Phone: Start: 10-11-2023 End: 10-13-2023 Evaluation and management of inpatient Praful Pineda MD Work Phone: [facility] Comment on [...] 25 minutes Mary Yan MD Work Phone: [facility] [place] Comment on above: 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 Ayanna Albert Facility:[id number] Start: 07-30-2023 Refill Paty Ortega CNP Work Phone: [facility] [place] Start: 07-29-2023 Patient encounter procedure [facility]: Start: 07-27-[address] Ayanna Albert Facility:[id number] Start: 02-19-2023 End: 02-19-2023 Office outpatient visit 25 minutes Paty Ortega CNP Work Phone: [facility] [place] Comment on above: Type 1 diabetes suzie itus with diabetic neuropathy (HCC) Start: 01-25-2023 Patient encounter procedure Juwan Mirza Work Phone: [facility] Work Phone: Start: 01-25-[address] Nancy Mirza Facility:[id number] Start: 01-18-2023 Patient encounter procedure Da jovani Mirza Work Phone: [facility] Work Phone: Start: 01-18-[address] Nancy Mirza Facility:[id number] Start: 01-15-2023 Patient encounter procedure Da jovani Mirza Work Phone: [facility] Work Phone: Start: 01-15-2023 [id number], Provider : Chaya Chan, Status: Pen, Time: 10:00 AM Nancy Mirza Work Phone: [facility] Work Phone: Start: 01-15-[address] Nancy Mirza Facility:[id number] Start: 01-13-2023 Patient encounter procedure Da jovani Mirza Work Phone: [facility] Work Phone: Start: 01-13-[address] Nancy Mirza Facility:[id number] Start: 01-08-2023 [email or web address], Provider : Chaya Chan, Status: Pen, Time: 10:00 AM Nancy Mirza Work Phone: [facility] Work Phone: Start: 01-08-[address] Nancy Mirza Facility:[id number] Start: 01-06-[address] Nancy Mirza Facility:[id number] Start: 01-06-2023 Patient encounter procedure Da jovani Mirza Work Phone: [facility] Work Phone: Start: 01-01-[address] Nancy Mirza Facility:[id number] Start: 01-01-2023 Patient encounter procedure Juwan Mirza Work Phone: [facility] Work Phone: Start: 12-31-2022 Refill Paty Ortega [employer]S LIFT OPERATOR Work Phone: [facility] Comment on above: Type 1 diabetes suzie itus with diabetic neuropathy (HCC) (Primary Dx) Start: 12-30-[address] Nancy Mirza Facility:[id number] Start: 12-25-[address] Nancy Mirza Facility:[id number] Start: 12-25-2022 Patient encounter procedure Juwan Mirza Work Phone: [facility] Work Phone: Start: 12-21-2022 Patient encounter procedure Da jovani Mirza Work Phone: [facility] [place] Work Phone: Start: 12-21-[address] Nancy Mirza Facility:[id number] Start: 10-19-2022 End: 10-19-2022 Office outpatient visit 25 minutes Paty Ortega [employer]S LIFT OPERATOR Work Phone: [facility] [place] Comment on above: Type 1 diabetes suzie itus with diabetic neuropathy (HCC) (Primary Dx); Essential hypertension; Pure hypercholesterolemia; Bilateral carotid artery stenosis; Prostate cancer screening Start: 06-19-2022 End: 06-19-2022 Office outpatient visit 25 minutes Paty Ortega CNP Work Phone: [facility] [place] Comment on above: Type 1 diabetes suzie itus with diabetic neuropathy (HCC) (Primary Dx); Essential hypertension; Elevated PSA Start: 02-13-2022 End: 02-13-2022 Office outpatient visit 25 minutes Mary Yan MD Work Phone: [facility] [place] Comment on above: Type 1 diabetes suzie itus with diabetic neuropathy (HCC) (Primary Dx); 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); Essential hypertension; Bilateral carotid artery stenosis; Prostate cancer screening Start: 10-13-2021 End: 10-13-2021 Office outpatient visit 25 minutes Paty Ortega CNP Work Phone: [facility] [place] Comment on above: Type 1 diabetes suzie itus with diabetic neuropathy (HCC) (Primary Dx); Essential hypertension; Pure hypercholesterolemia Start: 10-08-2021 Refill Paty Ortega CNP Work Phone: [facility] Start: 06-20-2021 End: 06-20-2021 Office outpatient visit 25 minutes Paty Ortega CNP Work Phone: [facility] [place] Comment on above: Type 1 diabetes suzie itus with diabetic polyneuropathy (HCC) (Primary Dx); Essential hypertension; Pure hypercholesterolemia Start: 02-26-2021 End: 02-26-2021 Subsequent hospital visit by physician Mary Yan MD Work Phone: [facility] Comment on above: Arrived Start: 02-18-2021 End: 02-18-2021 Office outpatient visit 25 minutes Mary Yan MD Work Phone: [facility] Comment on above: Type 1 diabetes suzie itus with diabetic polyneuropathy (HCC) (Primary Dx); Bilateral carotid artery stenosis; Essential hypertension; 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) Start: 02-18-2021 End: 02-18-2021 Refill Mary Yan MD Work Phone: [facility] Start: 11-22-2020 End: 11-22-2020 Orders Only Ya Nicolas Work Phone: [facility] Start: 10-18-2020 End: 10-18-2020 Office outpatient visit 25 minutes Paty Ortega Work Phone: [facility] Comment on above: Type 1 diabetes suzie itus with diabetic polyneuropathy (HCC) (Primary Dx); 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); Essential hypertension; Pure hypercholesterolemia Start: 06-18-2020 End: 06-18-2020 Office outpatient visit 25 minutes Paty Ortega Work Phone: [facility] Comment on above: Type 1 diabetes suzie itus with diabetic polyneuropathy (HCC) (Primary Dx); 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); Essential hypertension; Pure hypercholesterolemia Start: 11-16-2019 End: 11-16-2019 Office outpatient visit 25 minutes Paty Ortega Work Phone: [facility] Comment on above: Type I diabetes suzie itus with neurological manifestations, uncontrolled (HCC) (Primary Dx); Type 1 diabetes mellitus with diabetic polyneuropathy (HCC); Pure hypercholesterolemia Start: 07-17-2019 End: 07-17-2019 Office outpatient visit 25 minutes Keeley Patton Work Phone: [facility] Comment on above: Type 1 diabetes suzie itus with diabetic polyneuropathy (HCC) (Primary Dx); Essential hypertension; Pure hypercholesterolemia Start: 03-13-2019 End: 03-13-2019 Office outpatient visit 25 minutes Mary Yan Work Phone: [facility] Comment on above: 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) (Primary Dx); Pure hypercholesterolemia; Essential hypertension; 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); Prostate cancer screening Start: 11-11-2018 End: 11-11-2018 Office outpatient visit 15 minutes Keeley Patton Work Phone: [facility] Comment on above: Type 1 diabetes suzie itus with diabetic neuropathy (HCC) (Primary Dx); Essential hypertension Start: 07-05-2018 End: 07-05-2018 Office outpatient visit 25 minutes Paty Ortega Work Phone: [facility] Comment on above: Type 1 diabetes suzie itus with diabetic neuropathy (HCC) (Primary Dx); Essential hypertension; Pure hypercholesterolemia Start: 02-28-2018 End: 02-28-2018 Office/outpatient visit, [facility], level 3 Alexandra Givens Work Phone: [facility] Start: 02-09-2018 Ambulatory Nancy Mirza Facilit y:[place] Start: 02-09-2018 End: 02-09-2018 Ambulatory Nancy Mirza Work Phone: [facility] Start: 10-29-2017 Office/outpatient vi sit, est, level 4 Marymarquise Yan Work Phone: [facility] Start: 06-17-2017 End: 06-17-2017 Office outpatient visit 25 minutes Ya Parker Work Phone: [facility] Comment on above: Type 1 diabetes suzie itus with diabetic neuropathy (HCC) (Primary Dx);Essential hypertension;Pure hypercholesterolemia Procedures Date Procedure Procedure Detail Performing Clinician Start: 02-12-2025 Comprehensive metabo lic panel Paty Ortega ROSS LIFT OPERATOR Work Phone: Start: 02-12-2025 Lipid panel Paty Ortega ROSS LIFT OPERATOR Work Phone: Start: 02-12-2025 Lipid 1996 panel - S laurence or Plasma Ayanna Albert DO Work Phone: Start: 02-12-2025 Thyrotropin [Units/v olume] in Serum or Plasma Ayanna Albert DO Work Phone: Start: 11-14-2024 Follow-up visit Follow-up WOO GRIGSBY Start: 10-28-2024 Glucose measurement Laura Clifford MD Work Phone: Start: 10-28-2024 Glucose measurement Gen malika [facility] Work Phone: Start: 10-28-2024 End: 10-28-2024 Glucose measurement Generic [facility] Work Phone: Start: 10-28-2024 Glucose measurement Gen malika [facility] Work Phone: Start: 10-28-2024 End: 10-28-2024 Glucose measurement Generic [facility] Work Phone: Start: 10-28-2024 Glucose measurement Gen malika [facility] Work Phone: Start: 10-28-2024 End: 10-28-2024 Basic metabolic panel calcium total Cintia Clifford MD Work Phone: Start: 10-28-2024 End: 10-28-2024 Glucose measurement Generic [facility] Work Phone: Start: 10-28-2024 End: 10-28-2024 Glucose measurement Generic [facility] Work Phone: Start: 10-27-2024 End: 10-28-2024 Glucose measurement Generic [facility] Work Phone: Start: 10-27-2024 Basic metabolic pane l calcium total Cintia Clifford MD Work Phone: Start: 10-27-2024 [facility] Start: 10-27-2024 Comprehensive metabo lic panel Cintia Clifford MD Work Phone: Start: 10-27-2024 End: 10-27-2024 Glucose measurement Generic [facility] Work Phone: Start: 10-27-2024 End: [...] Start: 12-01-2023 End: 12-01-2023 Glucose measurement Generic [facility] Work Phone: Start: 12-01-2023 Basic metabolic pane l calcium total Norma Geiger ROSS LIFT OPERATOR Work Phone: Start: 11-30-2023 Glucose measurement Gen [facility] Work Phone: Start: 11-30-2023 Glucose measurement Gen [facility] Work Phone: Start: 11-30-2023 Echo tthrc r-t 2d w/wom-mode compl spec&colr d Norma Geiger [facility] Work Phone: Start: 11-30-2023 Basic metabolic pane l calcium total Norma Geiger ROSS LIFT OPERATOR Work Phone: Start: 11-29-2023 Ct thorax w/o contra st material Alfred P Ezike ROSS LIFT OPERATOR Work Phone: Start: 11-29-2023 Thromboplastin time partial plasma/whole blood Mary Yan MD Work Phone: Start: 11-29-2023 Glucose measurement Gen [facility] Work Phone: Start: 11-29-2023 Ecg routine ecg w/le ast 12 lds trcg only w/o i&r Ger W Aguilera DO Work Phone: Start: 11-29-2023 Glucose measurement Gen [facility] Work Phone: Start: 11-29-2023 Thromboplastin time partial plasma/whole blood Mary Yan MD Work Phone: Start: 11-29-2023 Basic metabolic pane l calcium total Norma Tania [place] ROSS LIFT OPERATOR Work Phone: Start: 11-28-2023 Glucose measurement Gen [facility] Work Phone: Start: 11-28-2023 Glucose measurement Gen [facility] Work Phone: Start: 11-28-2023 Glucose measurement Gen [facility] Work Phone: Start: 11-28-2023 Glucose measurement Gen [facility] Work Phone: Start: 11-28-2023 Basic metabolic pane l calcium total Norma Tania [place] ROSS LIFT OPERATOR Work Phone: Start: 11-28-2023 Glucose measurement Gen [facility] Work Phone: Start: 11-28-2023 Basic metabolic pane l calcium total Norma Tania [place] ROSS LIFT OPERATOR Work Phone: Start: 11-27-2023 End: 11-27-2023 Basic metabolic panel calcium total Norma Tania [place] ROSS LIFT OPERATOR Work Phone: Start: 11-27-2023 C-reactive protein Mehdi Pabon MD Work Phone: Start: 11-27-2023 Glucose measurement Gen [facility] Work Phone: Start: 11-27-2023 Glucose measurement Gen [facility] Work Phone: Start: 11-27-2023 Glucose measurement Gen [facility] Work Phone: Start: 11-27-2023 Basic metabolic pane l calcium total Norma Tania Juan[place] ROSS LIFT OPERATOR Work Phone: Start: 11-27-2023 Glucose measurement Gen [facility] Work Phone: Start: 11-27-2023 Iaad ia clostridium difficile toxin Norma Geiger ROSS LIFT OPERATOR Work Phone: Start: 11-27-2023 Hemoglobin glycosyla chinyere a1c Mary Yan MD Work Phone: Start: 11-27-2023 Glucose measurement Gen [facility] Work Phone: Start: 11-27-2023 Basic metabolic pane l calcium total Norma Geiger ROSS LIFT OPERATOR Work Phone: Start: 11-27-2023 Glucose measurement Gen [facility] Work Phone: Start: 11-27-2023 Glucose measurement Gen [facility] Work Phone: Start: 11-27-2023 End: 11-27-2023 Glucose measurement Generic [facility] is[facility] Work Phone: Start: 11-27-2023 Basic metabolic pane l calcium total Norma Geiger ROSS LIFT OPERATOR Work Phone: Start: 11-27-2023 Glucose measurement Gen [facility] Work Phone: Start: 11-27-2023 Glucose measurement Gen [facility] Work Phone: Start: 11-27-2023 Glucose measurement Gen [facility] Work Phone: Start: 11-27-2023 Basic metabolic pane l calcium total Norma Geiger ROSS LIFT OPERATOR Work Phone: Start: 11-27-2023 Influenza virus A an d B RNA and SARS-CoV-2 (COVID-19) N gene panel - Respiratory specimen by ALICE with probe detection Norma Geiger ROSS LIFT OPERATOR Work Phone: Start: 11-27-2023 Polymerase chain ty ction analysis Norma Geiger ROSS LIFT OPERATOR Work Phone: Start: 11-27-2023 End: 11-27-2023 Glucose measurement Generic [facility] Work Phone: Start: 11-27-2023 Assay of troponin quantitative Norma Geiger CNP Work Phone: Start: 11-27-2023 Gases blood ph direc t nikkie xcpt pulse oximitry Generic [facility] Work Phone: Start: 11-27-2023 End: 11-27-2023 Glucose measurement [facility] Work Phone: Start: 11-27-2023 Radiologic exam ches t single view Norma Geiger CNP Work Phone: Start: 11-27-2023 End: 11-27-2023 Gases blood ph direct nikkie xcpt pulse oximitry Generic [facility] Work Phone: Start: 11-27-2023 Ecg routine [...] Phone: Start: 11-27-2023 End: 11-27-2023 Glucose measurement [facility] is Work Phone: Start: 11-27-2023 Thyrotropin [Units/v olume] in Serum or Plasma [facility] Start: 11-27-2023 Assay of troponin quantitative Ger Sim Aguilera DO Work Phone: Start: 11-26-2023 EXTRA TUBES Ger W Swi ft DO Work Phone: Start: 11-26-2023 GREEN TOP Ger W Swi ft DO Work Phone: Start: 11-26-2023 Assay of lactate Ger Sim Aguilera DO Work Phone: Start: 11-26-2023 Iadna s aureus methi cillin resist amp probe tq Ger Sim Gauilera DO Work Phone: Start: 11-26-2023 Radiologic exam [...] tthrc r-t 2d w/wom-mode compl spec&colr d Vrea Rivera MD Work Phone: Start: 10-11-2023 End: [...] 3 comp foot exam completed Paty Ortega ROSS LIFT OPERATOR Work Phone: Start: 02-12-2023 Lipid 1996 panel - S laurence or Plasma Ayanna Albert DO Work Phone: Start: 02-12-2023 Thyrotropin [Units/v olume] in Serum or Plasma Ayanna Albert DO Work Phone: Start: 10-19-2022 3 comp foot exam completed Paty Ortega CNP Work Phone: Start: 06-19-2022 3 comp foot exam completed Paty Ortega ROSS LIFT OPERATOR Work Phone: Start: 02-13-2022 3 comp [...] EJACULATION WITHIN 48 HRS[facility] VOL24,NO.2, , PG.339 Performed By: #### [id number] #### MIKE [employer] [address] [place] [address] Start: 03-13-2019 3 comp foot exam completed Keeley Patton Start: 11-11-2018 3 comp foot exam completed Mary Yan Start: 07-05-2018 3 comp foot exam completed Keeley Patton Start: 02-15-2017 3 comp foot exam completed Ya Parker Plan of Treatment Date Care Activity Detail Author Start: 02-12-2026 Creatinine measurement Creatinine Level [facility] Start: 02-12-2026 Lipid panel Lipid Panel [facility] Start: 02-12-2026 Potassium measurement Potassium Level [facility] Start: 02-12-2026 Thyroid stimulating hormone measurement TSH Level [facility] Start: 02-12-2026 Urine screening for protein Diabetes: Urine Protein Screening [facility] Start: 11-13-2025 Diabetic foot examination Diabetic Foot Exam [facility] Start: 10-27-2025 Screening for malignant neoplasm of lung Low-dose CT Lung Cancer Screen [facility] Start: 09-23-2025 eGFR Diabetes eGFR Diabetes [facility] Start: 09-05-2025 Urine screening for protein eGFR Diabetes [facility] Start: 08-14-2025 Hemoglobin A1c measurement A1C [facility] Start: 08-14-2025 Urine screening for protein eGFR Diabetes [facility] Start: 07-13-2025 End: 07-13-2025 Patient encounter procedure 07/13/2025 1:00 PM EDT Office Visit [facility] [place] [address] [place] [address] Paty Ortega, TRISTAN [address] [place] [address] [facility] [place] Start: 07-07-2025 Creatinine measurement Creatinine Level [facility] Start: 07-07-2025 Potassium measurement Potassium Level [facility] Start: 07-07-2025 Thyroid stimulating hormone measurement TSH Level [facility] Start: 07-02-2025 Influenza vaccination Influenza Vaccine (Season Ended) [facility] Start: 06-12-2025 End: 06-12-2025 Patient encounter procedure 06/12/2025 9:20 AM EDT Office Visit [facility] [address] [place] [address] Woo Grigsby MD [address] [place] [address] [facility] Start: 05-30-2025 Hemoglobin A1c measurement A1C [facility] Start: 05-17-2025 End: 05-17-2025 Patient encounter procedure [facility] Start: 05-14-2025 Hemoglobin A1c measurement [facility] Start: 05-14-2025 End: 05-14-2025 Patient encounter procedure 05/14/2025 11:20 AM EDT Office Visit [facility] [address] [place] [address] Woo Grigsby MD [address] [place] [address] [facility] Start: 04-28-2025 Urine screening for protein eGFR Diabetes [facility] Start: 04-18-2025 Urine screening for protein eGFR Diabetes [facility] Start: 03-23-2025 Medicare Annual Wellness Visit Medicare Annual Wellness Visit (AWV) [facility] Start: 03-12-2025 End: 03-12-2025 Patient encounter procedure 03/12/2025 2:00 PM EDT Office Visit [facility] [place] [address] [place] [id number] Paty Ortega CNP [address] [place] [address] [facility] [place] Start: 02-26-2025 End: 02-26-2026 Basic metabolic 2000 panel - Serum or Plasma Basic metabolic panel Lab Routine Stage 3b chronic kidney disease (Multi) Expected: 02/26/2025 (Approximate), Expires: 02/26/2026 [facility] Service Area Work Phone: Comment on above: Expected: 02/26/2025 (Approximate), Expi res: 02/26/2026 Start: 02-06-2025 Creatinine measurement Creatinine Level [facility] Start: 02-06-2025 Potassium measurement Potassium Level [facility] Start: 02-04-2025 Hemoglobin A1c measurement A1C [facility] Start: 11-29-2024 Screening for malignant neoplasm of lung Low-dose CT Lung Cancer Screen [facility] Start: 11-27-2024 Thyroid stimulating hormone measurement TSH Level [facility] Start: 11-26-2024 Creatinine measurement Creatinine Level [facility] Start: 11-26-2024 Potassium measurement Potassium Level [facility] Start: 11-20-2024 End: 11-20-2024 Patient encounter procedure 11/20/2024 2:45 PM EST Office Visit [facility] [place] [address] [place] [phone] Paty Ortega CNP [address] [place] [address] [facility] [place] Start: 11-14-2024 End: 11-14-2024 Patient encounter procedure 11/14/2024 10:40 AM EST Office Visit [facility] [address] [place] [address] Woo Grigsby MD [address] [place] [address] [facility] Start: 11-13-2024 End: 11-13-2024 Patient encounter procedure 11/13/2024 11:30 AM EST Office Visit [facility] [address] [place] [address] Paty Ortega CNP [address] [place] [address] [facility] Start: 11-07-2024 End: 11-07-2024 Patient encounter procedure 11/07/2024 10:00 AM EST Office Visit [facility] [address] 3rd [place] [address] Brock Groves MD [address] [place] [address] [facility] Start: 11-03-2024 End: 11-03-2024 Patient encounter procedure [facility] Start: 10-27-2024 End: 10-27-2024 Admission to same day surgery center 10/27/2024 10:05 AM EST - 10/27/2024 10:55 AM EST Surgery [facility] [address] [place] [address] Elías Rodriguez MD [address] [place] [address] Left Heart Cath [facility] Comment on above: Left Heart Cath Start: 10-27-2024 Subsequent hospital visit by physician [facility] Procedural Care Unit Start: 10-18-2024 End: 10-18-2024 Patient encounter procedure 10/18/2024 1:20 PM EST Office Visit [facility] [address] 3rd floor [place] [address] Woo Grigsby MD [address] [place] [address] [facility] Start: 10-13-2024 Creatinine measurement Creatinine Level [facility] Start: 10-13-2024 Potassium measurement Potassium Level [facility] Start: 10-11-2024 Echocardiography Echocardiogram [facility] Start: 10-06-2024 Hemoglobin A1c measurement [facility] Start: 09-27-2024 Lipid panel Lipid Panel [facility] Start: 09-27-2024 Thyroid stimulating hormone measurement TSH Level [facility] Start: 08-29-2024 End: 08-29-2025 Comprehensive metabolic 2000 panel - Serum or Plasma Comprehensive metabolic panel Lab Routine Stage 3b chronic kidney disease (Multi) Expected: 08/29/2024 (Approximate), Expires: 08/29/2025 [facility] Service Area Work Phone: Comment on above: Expected: 08/29/2024 (Approximate), Expi res: 08/29/2025 Start: 08-29-2024 End: 08-29-2025 Microalbumin/Creatinine [Mass Ratio] in Urine Albumin-Creatinine Ratio, Urine Random Lab Routine Stage 3b chronic kidney disease (Multi) Expected: 08/29/2024 (Approximate), Expires: 08/29/2025 [facility] Work Phone: Comment on above: Expected: 08/29/2024 (Approximate), Expi res: 08/29/2025 Start: 08-29-2024 End: 08-29-2025 Urinalysis complete panel - Urine Urinalysis with Reflex Microscopic Lab Routine Stage 3b chronic kidney disease (Multi) Expected: 08/29/2024 (Approximate), Expires: 08/29/2025 [facility] Work Phone: Comment on above: Expected: 08/29/2024 (Approximate), Expi res: 08/29/2025 Start: 08-29-2024 End: 08-29-2024 Patient encounter procedure 08/29/2024 1:00 PM EDT Office Visit [facility] [address] [place] [id number] Madie Albert, [employer]ILER PLANT WORKER-ROSS LIFT OPERATOR, DNP [address] [facility] [address] [place] [address] [facility] Start: 08-25-2024 End: 02-23-2025 Microalbumin/Creatinine [Mass Ratio] in Urine Albumin , Urine Random Lab Routine Stage 3b chronic kidney disease (Multi) Expected: 08/25/2024 (Approximate), Expires: 02/23/2025 [facility] Work Phone: Comment on above: Expected: 08/25/2024 (Approximate), Expi res: 02/23/2025 Start: 08-09-2024 Urine screening for protein Diabetes: Urine Protein Screening [facility] Start: 07-21-2024 End: 07-21-2024 Patient encounter procedure 07/21/2024 1:45 PM EDT Office Visit [facility] [place] [address] [place] [address] Paty Ortega, ROSS LIFT OPERATOR [address] [place] [address] [facility] [place] Start: 07-02-2024 COVID-19 Vaccine ( season) COVID-19 Vaccine ( season) [facility] Start: 07-02-2024 COVID-19 Vaccine ( season) COVID-19 Vaccine ( season) [facility] Start: 07-02-2024 Influenza vaccination [facility] Start: 06-21-2024 Diabetic foot examination [facility] Start: 05-31-2024 Urine screening for protein eGFR Diabetes [facility] Start: 04-24-2024 End: 04-24-2024 ambulatory [facility] Start: 04-24-2024 End: 04-24-2024 Patient encounter procedure 04/24/2024 9:40 AM EDT Office Visit [facility] [address] [place] [address] Woo Grigsby MD [facility] [place] [address] [facility] Start: 03-27-2024 Hemoglobin A1c measurement A1C [facility] Start: 02-26-2024 Hemoglobin A1c measurement [facility] Start: 02-24-2024 End: 02-23-2025 Basic metabolic 2000 panel - Serum or Plasma Basic metabolic panel Lab Routine Stage 3b chronic kidney disease (Multi) Expected: 02/24/2024 (Approximate), Expires: 02/23/2025 [facility] Service Area Work Phone: Comment on above: Expected: 02/24/2024 (Approximate), Expi res: 02/23/2025 Start: 02-24-2024 End: 02-23-2025 Phosphate [Mass/volume] in Serum or Plasma Phosphorus Lab Routine Stage 3b chronic kidney disease (Multi) Expected: 02/24/2024 (Approximate), Expires: 02/23/2025 [facility] Work Phone: Comment on above: Expected: 02/24/2024 (Approximate), Expi res: 02/23/2025 Start: 02-24-2024 End: 02-23-2025 Urate [Mass/volume] in Serum or Plasma Uric acid Lab Routine Stage 3b chronic kidney disease (Multi) Expected: 02/24/2024 (Approximate), Expires: 02/23/2025 [facility] Work Phone: Comment on above: Expected: 02/24/2024 (Approximate), Expi res: 02/23/2025 Start: 02-24-2024 End: 02-24-2024 Patient encounter procedure 02/24/2024 1:45 PM EDT Office Visit [facility] Building [address] [place] [address] Madie Albert, [employer] PL[employer] WORKER-ROSS LIFT OPERATOR, DNP [address] [place] [address] [facility] Start: 02-20-2024 Diabetic foot examination Foot Exam [facility] Start: 02-18-2024 End: 02-18-2024 ambulatory [facility] [place] Start: 02-18-2024 End: 02-18-2024 Patient encounter procedure 02/18/2024 1:00 PM EDT Office Visit [facility] [place] [address] [place] [address] Paty Ortega CNP [address], [place] [address] [facility] [place] Start: 02-13-2024 Lipid panel Lipid Panel [facility] Start: 02-13-2024 Thyroid stimulating hormone measurement TSH Level [facility] Start: 01-14-2024 End: 01-14-2024 ambulatory [facility] Start: 01-14-2024 End: 01-14-2024 Patient encounter procedure 01/14/2024 11:00 AM EDT Office Visit [facility] [address] [facility] [place] [address] Aylin Lacy CNP [address] [place] [address] [facility] Start: 01-12-2024 End: 01-12-2024 ambulatory [facility] Start: 01-12-2024 End: 01-12-2024 Patient encounter procedure [facility] Start: 01-10-2024 End: 10-08-2024 Comprehensive metabolic 2000 panel - Serum or Plasma Comprehensive Metabolic Panel Lab Routine 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) Expected: 01/10/2024 (Approximate), Expires: 10/08/2024 [facility] Work Phone: Comment on above: Expected: 01/10/2024 (Approximate), Expi res: 10/08/2024 Start: 01-10-2024 End: 10-08-2024 Hemoglobin A1c/Hemoglobin.total in Blood Hemoglobin A1c Lab Routine 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) Expected: 01/10/2024 (Approximate), Expires: 10/08/2024 [facility] Comment on above: Expected: 01/10/2024 (Approximate), Expi res: 10/08/2024 Start: 12-28-2023 Hemoglobin A1c measurement Diabetes: Hemoglobin A1C [facility] Start: 12-09-2023 Glaucoma screening Diabetes: Retinopathy Screening [facility] Start: 11-29-2023 End: 11-29-2023 Patient encounter procedure [facility] Start: 10-19-2023 Diabetic foot examination Foot Exam [facility] Start: 10-08-2023 End: 10-08-2023 Patient encounter procedure 10/08/2023 11:15 AM EST Office Visit [facility] [place] [address] [place] [address] Mary Yan MD [address] [place] [id number] [facility] [place] Start: 09-11-2023 Hemoglobin A1c measurement [facility] Start: 08-25-2023 End: 08-25-2024 Basic metabolic 2000 panel - Serum or Plasma Basic metabolic panel Lab Routine Stage 3b chronic kidney disease (CMS/HCC) Expected: 08/25/2023 (Approximate), Expires: 08/25/2024 [facility] Service Area Work Phone: Comment on above: Expected: 08/25/2023 (Approximate), Expi res: 08/25/2024 Start: 08-25-2023 End: 08-25-2024 Microalbumin/Creatinine [Mass Ratio] in Urine Albumin, urine, random Lab Routine Stage 3b chronic kidney disease (CMS/HCC) Expected: 08/25/2023 (Approximate), Expires: 08/25/2024 [facility] Work Phone: Comment on above: Expected: 08/25/2023 (Approximate), Expi res: 08/25/2024 Start: 07-02-2023 COVID-19 Vaccine () COVID-19 Vaccine () [facility] Start: 07-02-2023 Influenza vaccination [facility] Start: 06-21-2023 End: 06-21-2023 Patient encounter procedure 06/21/2023 1:15 PM EDT Office Visit [facility] [place] [address] [place] [id number] aPty Ortega, TRISTAN [address] [place] [address] [facility] [place] Start: 06-19-2023 Diabetic foot examination Foot Exam [facility] Start: 06-01-2023 End: 02-20-2024 Comprehensive metabolic 2000 panel - Serum or Plasma Comprehensive Metabolic Panel Lab Routine 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) Expected: 06/01/2023, Expires: 02/20/2024 [facility] Work Phone: Comment on above: Expected: 06/01/2023, Expires: 4 Start: 06-01-2023 End: 02-20-2024 Hemoglobin A1c/Hemoglobin.total in Blood Hemoglobin A1c Lab Routine 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) Expected: 06/01/2023, Expires: 02/20/2024 [facility] Comment on above: Expected: 06/01/2023, Expires: 4 Start: 05-14-2023 Hemoglobin A1c measurement A1C [facility] Start: 02-19-2023 End: 02-19-2023 Patient encounter procedure 02/19/2023 Office Visit Endocrinology Paty Ortega, ROSS LIFT OPERATOR [address] [place] [address] [facility] [place] Start: 02-13-2023 Diabetic foot examination Foot Exam [facility] Start: 02-05-2023 End: 02-05-2023 Patient encounter procedure 02/05/2023 Appointment Cardiology Paty Ortega, ROSS LIFT OPERATOR [address] [facility] [place] [address] [facility] Start: 01-30-2023 End: 10-20-2023 Complete blood count with white cell differential, manual CBC and Differential Lab Routine 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) Expected: 01/30/2023, Expires: 10/20/2023 [facility] Comment on above: Expected: 01/30/2023, Expires: 3 Start: 01-30-2023 End: 10-20-2023 Comprehensive metabolic 2000 panel - Serum or Plasma Comprehensive Metabolic Panel Lab Routine 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) Expected: 01/30/2023, Expires: 10/20/2023 [facility] Comment on above: Expected: 01/30/2023, Expires: 3 Start: 01-30-2023 End: 10-20-2023 Hemoglobin A1c/Hemoglobin.total in Blood Hemoglobin A1c Lab Routine 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) Expected: 01/30/2023, Expires: 10/20/2023 [facility] Comment on above: Expected: 01/30/2023, Expires: 3 Start: 01-30-2023 End: 10-20-2023 Lipid 1996 panel - Serum or Plasma Lipid Panel Lab Routine 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) Expected: 01/30/2023, Expires: 10/20/2023 [facility] Comment on above: Expected: 01/30/2023, Expires: 3 Start: 01-30-2023 End: 10-19-2023 Microalbumin measurement, urine, quantitative Microalbumin/Creatinine Ratio, UR Random Lab Routine 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) Expected: 01/30/2023, Expires: 10/19/2023 [facility] Comment on above: Expected: 01/30/2023, Expires: 3 Start: 01-30-2023 End: 10-20-2023 Prostate specific Ag [Mass/volume] in Serum or Plasma PSA, Screen Lab Routine Prostate cancer screening Expected: 01/30/2023, Expires: 10/20/2023 [facility] Comment on above: Expected: 01/30/2023, Expires: 3 Start: 01-30-2023 End: 10-20-2023 Thyrotropin [Units/volume] in Serum or Plasma TSH Lab Routine 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) Expected: 01/30/2023, Expires: 10/20/2023 [facility] Comment on above: Expected: 01/30/2023, Expires: 3 Start: 01-30-2023 End: 10-20-2023 Thyroxine (T4) free [Mass/volume] in Serum or Plasma T4, Free Lab Routine 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) Expected: 01/30/2023, Expires: 10/20/2023 [facility] Comment on above: Expected: 01/30/2023, Expires: 3 Start: 01-25-2023 [email or web address], Provider: Zoila Lopez, Status: Pen, Time: 2:45 PM PTFUADULT4, Provider: Zoila Lopez, Status: Pen, Time: 2:45 PM [facility]: Start: 01-18-2023 PTRECHECKA, Provider: Carlene Whitehead, Status: Pen, Time: 2:00 PM PTRECHECKA, Provider: Carlene Whitehead, Status: Pen, Time: 2:00 PM [facility] Work Phone: Start: 01-15-2023 PTFUADULT4, Provider: Chaya Chan, Status: Pen, Time: 10:00 AM PTFUADULT4, Provider: Chaya Chan, Status: Pen, Time: 10:00 AM [facility] Work [facility]: Start: 01-13-2023 PTFUADULT4, Provider: Chaya Chan, Status: Pen, Time: 10:00 AM PTFUADULT4, Provider: Chaya Chan, Status: Pen, Time: 10:00 AM [facility] Work Phone: Start: 01-08-2023 PTFUADULT4, Provider: Chaya Chan, Status: Pen, Time: 10:00 AM PTFUADULT4, Provider: Chaya Chan, Status: Pen, Time: 10:00 AM [facility] Work Phone: Start: 01-06-2023 PTFUADULT4, Provider: Zoila Lopez, Status: Pen, Time: 10:00 AM PTFUADULT4, Provider: Zoila Lopez, Status: Pen, Time: 10:00 AM [facility] Work Phone: Start: 01-01-2023 PTFUADULT4, Provider: Zoila Lopez, Status: Pen, Time: 10:45 AM PTFUADULT4, Provider: Zoila Lopez, Status: Pen, Time: 10:45 AM [facility] Work Phone: Start: 12-30-2022 PTFUADULT4, Provider: Zoila Lopez, Status: Pen, Time: 4:15 PM PTFUADULT4, Provider: Zoila Lopez, Status: Pen, Time: 4:15 PM [facility] Work Phone: Start: 12-25-2022 PTFUADULT4, Provider: Chaya Chan, Status: Pen, Time: 7:45 AM PTFUADULT4, Provider: Chaya Chan, Status: Pen, Time: 7:45 AM [facility] Work Phone: Start: 10-19-2022 End: 10-19-2022 Patient encounter procedure 10/19/2022 Office Visit Endocrinology Paty Ortega, TRISTAN [address] [place] [address] [facility] [place] Start: 10-13-2022 Diabetic foot examination Foot Exam [facility] Start: 09-08-2022 Hemoglobin A1c measurement A1C [facility] Start: 07-02-2022 Influenza vaccination [facility] Start: 06-20-2022 Diabetic foot examination Foot Exam [facility] Start: 06-19-2022 End: 06-19-2022 Patient encounter procedure 06/19/2022 Office Visit Endocrinology Jordan Patyeduar Stewart, TRISTAN [address] [place] [address] [facility] [place] Start: 06-11-2022 Microalbumin measurement, urine, quantitative Urine Microalbumin [facility] Start: 05-27-2022 History and physical examination, annual for health maintenance Wellness Visit [facility] Start: 05-27-2022 Medicare Wellness Visit Medicare Wellness Visit [facility] Start: 04-13-2022 Hemoglobin A1c measurement A1C [facility] Start: 03-06-2022 COVID-19 Vaccine (4 - Booster for Moderna series) COVID-19 Vaccine (4 - Booster for Moderna series) [facility] Start: 02-18-2022 Diabetic foot examination Foot Exam [facility] Start: 02-13-2022 End: 02-13-2022 Patient encounter procedure 02/13/2022 Office Visit Endocrinology Mary Yan MD [address] [place] [address] [facility] [place] Start: 01-30-2022 End: 10-14-2022 Comprehensive metabolic 2000 panel - Serum or Plasma Comprehensive Metabolic Panel Lab Routine 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) Expected: 01/30/2022, Expires: 10/14/2022 [facility] Work Phone: Comment on above: Expected: 01/30/2022, Expires: Start: 01-30-2022 End: 10-14-2022 Hemoglobin A1c/Hemoglobin.total in Blood Hemoglobin A1c Lab Routine 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) Expected: 01/30/2022, Expires: 10/14/2022 [facility] Comment on above: Expected: 01/30/2022, Expires: 2 Start: 01-30-2022 End: 10-14-2022 Lipid 1996 panel - Serum or Plasma Lipid Panel Lab Routine 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) Expected: 01/30/2022, Expires: 10/14/2022 [facility] Comment on above: Expected: 01/30/2022, Expires: 2 Start: 01-01-2022 COVID-19 Vaccine (4 - Booster for Moderna series) COVID-19 Vaccine (4 - Booster for Moderna series) [facility] Start: 01-01-2022 COVID-19 Vaccine (4 - Moderna series) COVID-19 Vaccine (4 - Moderna series) [facility] Start: 12-12-2021 Hemoglobin A1c measurement A1C [facility] Start: 12-12-2021 Microalbumin measurement, urine, quantitative Urine Microalbumin [facility] Start: 12-12-2021 Urine screening for protein [facility] Start: 10-18-2021 Diabetic foot examination Foot Exam [facility] Start: 10-14-2021 Glaucoma screening [facility] Start: 10-13-2021 End: 10-13-2021 Patient encounter procedure 10/13/2021 Office Visit Endocrinology Paty Ortega, ROSS LIFT OPERATOR [address] [place] [address] [facility] [place] Start: 10-03-2021 Albumin DL <= 20 mg/L (U) [Mass/Vol] Urine Microalbumin [facility] Start: 10-03-2021 Microalbumin measurement, urine, quantitative Urine Microalbumin [facility] Start: 10-01-2021 End: 06-21-2022 Comprehensive metabolic 2000 panel - Serum or Plasma Comprehensive Metabolic Panel Lab Routine Type 1 diabetes mellitus with diabetic polyneuropathy (HCC) Expected: 10/01/2021, Expires: 06/21/2022 [facility] Work Phone: Comment on above: Expected: 10/01/2021, Expires: 2 Start: 10-01-2021 End: 06-21-2022 Hemoglobin A1c/Hemoglobin.total in Blood Hemoglobin A1c Lab Routine Type 1 diabetes mellitus with diabetic polyneuropathy (HCC) Expected: 10/01/2021, Expires: 06/21/2022 [facility] Comment on above: Expected: 10/01/2021, Expires: 2 Start: 10-01-2021 End: 06-21-2022 Thyrotropin [Units/volume] in Serum or Plasma TSH Lab Routine Type 1 diabetes mellitus with diabetic polyneuropathy (HCC) Expected: 10/01/2021, Expires: 06/21/2022 [facility] Comment on above: Expected: 10/01/2021, Expires: 2 Start: 10-01-2021 End: 06-21-2022 Thyroxine (T4) free [Mass/volume] in Serum or Plasma T4, Free Lab Routine Type 1 diabetes mellitus with diabetic polyneuropathy (HCC) Expected: 10/01/2021, Expires: 06/21/2022 [facility] Comment on above: Expected: 10/01/2021, Expires: 2 Start: 09-11-2021 Hemoglobin A1c measurement A1C [facility] Start: 08-13-2021 Hemoglobin A1c measurement A1C [facility] Start: 07-31-2021 COVID-19 Vaccine (3 - Booster for Moderna series) COVID-19 Vaccine (3 - Booster for Moderna series) [facility] Start: 07-04-2021 Prostate specific antigen measurement PSA Level [facility] Start: 07-02-2021 Influenza vaccination Sequential Influenza Vaccine (#1) [facility] Start: 06-20-2021 End: 06-20-2021 Patient encounter procedure 06/20/2021 Office Visit Endocrinology Paty Ortega, ROSS LIFT OPERATOR [address] [place] [address] [phone] [facility] [place] Start: 04-16-2021 History and physical examination, annual for health maintenance Wellness Visit [facility] Start: 04-03-2021 HbA1c (Bld) [Mass fraction] A1C [facility] Start: 02-18-2021 End: 02-18-2021 Office Visit 02/18/2021 Office Visit Endocrinology Mary Yan MD [address] [facility] [place] [address] [phone] [facility] Start: 02-02-2021 End: 10-19-2021 Comprehensive metabolic 2000 panel Comprehensive Metabolic Panel Lab Routine Type 1 diabetes mellitus with diabetic polyneuropathy (HCC) Expected: 02/02/2021, Expires: 10/19/2021 [facility] Comment on above: Expected: 02/02/2021, Expires: Start: 02-02-2021 End: 10-19-2021 Free T4 [Mass/Vol] T4, Free Lab Routine Type 1 diabetes mellitus with diabetic polyneuropathy (HCC) Expected: 02/02/2021, Expires: 10/19/2021 [facility] Comment on above: Expected: 02/02/2021, Expires: Start: 02-02-2021 End: 10-19-2021 HbA1c (Bld) [Mass fraction] Hemoglobin A1c Lab Routine Type 1 diabetes mellitus with diabetic polyneuropathy (HCC) Expected: 02/02/2021, Expires: 10/19/2021 [facility] Comment on above: Expected: 02/02/2021, Expires: Start: 02-02-2021 End: 10-19-2021 TSH Qn TSH Lab Routine Type 1 diabetes mellitus with diabetic polyneuropathy (HCC) Expected: 02/02/2021, Expires: 10/19/2021 [facility] Comment on above: Expected: 02/02/2021, Expires: Start: 12-11-2020 HbA1c (Bld) [Mass fraction] A1C [facility] Start: 11-16-2020 Diabetic foot examination Foot Exam [facility] Start: 10-18-2020 End: 10-18-2020 Office Visit 10/18/2020 Office Visit Endocrinology Keeley Patton CNP [address] [address] [phone] [facility] Start: 10-01-2020 End: 06-19-2021 Comprehensive metabolic 2000 panel Comprehensive Metabolic Panel Lab Routine Type 1 diabetes mellitus with diabetic polyneuropathy (HCC) Expected: 10/01/2020, Expires: 06/19/2021 [facility] Comment on above: Expected: 10/01/2020, Expires: 1 Start: 10-01-2020 End: 06-19-2021 HbA1c (Bld) [Mass fraction] Hemoglobin A1c Lab Routine Type 1 diabetes mellitus with diabetic polyneuropathy (HCC) Expected: 10/01/2020, Expires: 06/19/2021 [facility] Comment on above: Expected: 10/01/2020, Expires: 1 Start: 10-01-2020 End: 06-19-2021 Lipid 1996 panel Lipid Panel Lab Routine Type 1 diabetes mellitus with diabetic polyneuropathy (HCC) Expected: 10/01/2020, Expires: 06/19/2021 [facility] Comment on above: Expected: 10/01/2020, Expires: 1 Start: 10-01-2020 End: 06-18-2021 Microalbumin measurement, urine, quantitative Microalbumin/Creatinine Ratio, UR Random Lab Routine Type 1 diabetes mellitus with diabetic polyneuropathy (HCC) Expected: 10/01/2020, Expires: 06/18/2021 [facility] Comment on above: Expected: 10/01/2020, Expires: 1 Start: 07-17-2020 Diabetic foot examination FOOT EXAM [facility] Start: 07-02-2020 Influenza vaccination Sequential Influenza Vaccine (#1) [facility] Start: 07-02-2020 Influenza vaccination given Sequential Influenza Vaccine (#1) [facility] Start: 05-03-2020 HbA1c (Bld) [Mass fraction] A1C [facility] Start: 03-15-2020 End: 03-15-2020 Office Visit 03/15/2020 Office Visit Endocrinology Keeley Patton, ROSS LIFT OPERATOR [address] [address] [phone] [facility] Start: 03-13-2020 Diabetic foot examination FOOT EXAM [facility] Start: 01-02-2020 HbA1c (Bld) [Mass fraction] A1C [facility] Start: 11-16-2019 End: 11-16-2019 Office Visit 11/16/2019 Office Visit Endocrinology Paty Ortega, ROSS LIFT OPERATOR [address] [facility] [address] [place] [address] [phone] [facility] Start: 11-11-2019 Diabetic foot examination FOOT EXAM [facility] Start: 07-17-2019 End: 07-17-2019 Office Visit 07/17/2019 Office Visit Endocrinology Keeley Patton, TRISTAN [address] [facility] [address] [place] [address] [phone] [facility] Start: 07-05-2019 Diabetic foot examination FOOT EXAM [facility] Start: 07-02-2019 Influenza vaccination given [facility] Start: 03-13-2019 End: 03-13-2019 Ambulatory 03/13/2019 Office Visit Endocrinology Mary Yan MD [address] [facility] [address] [place] [address] [phone] [facility] Start: 02-28-2019 Diabetic foot examination (regime/therapy) FOOT EXAM [facility] Start: 01-31-2019 Pneumococcal vaccination PNEUMOCOCCAL VACCINE AGE 65+ (2 of 2 - PPSV23) [facility] Start: 2018 Respiratory Syncytial Virus Immunization: Risk, 60-74 Risk, or 75+ (1 - 1-dose 75+ series) Respiratory Syncytial Virus Immunization: Risk, 60-74 Risk, or 75+ (1 - 1-dose 75+ series) [facility] Start: 2018 RSV High Risk: (Elderly (60+) or Population) (1 - 1-dose 75+ series) RSV High Risk: (Elderly (60+) or Population) (1 - 1-dose 75+ series) [facility] Start: 11-08-2018 End: 11-08-2018 Ambulatory 11/08/2018 Office Visit Endocrinology Ya Parker PA-C [address] [facility] [address] [place] [address] [phone] [facility] Start: 10-29-2018 Diabetic foot examination (regime/therapy) FOOT EXAM [facility] Work Phone: Start: 07-05-2018 End: 07-05-2018 Ambulatory 07/05/2018 Office Visit Endocrinology Jordan Patyeduar Stewart, ROSS LIFT OPERATOR [address] [facility] [address] [place] [address] [phone] [facility] Start: 07-02-2018 Influenza vaccination [facility] Start: 07-02-2018 Influenza vaccination given SEQUENTIAL INFLUENZA VACCINE (#1) [facility] Start: 02-28-2018 Ambulatory 02/28/2018 Office Visit Endocrinology Chon Alexandralizzy Loera, TRISTAN [address] [facility] [address] [place] [address] [phone] [facility] Start: 02-15-2018 3 comp foot exam completed FOOT EXAM [facility] Work Phone: Start: 10-29-2017 Ambulatory 10/29/2017 Office Visit Endocrinology Mary Yan MD [address] [facility] [address] [place] [address] [phone] [facility] Start: 07-02-2017 Influenza vaccination SEQUENTIAL INFLUENZA VACCINE (#1) [facility] Work Phone: Start: 07-02-2017 SEQUENTIAL INFLUENZA VACCINE (#1) SEQUENTIAL INFLUENZA VACCINE (#1) [facility] Work Phone: Start: 05-10-2017 HbA1c [facility] Work Phone: Start: 2008 ABDOMINAL AORTIC ULTRASOUND ABDOMINAL AORTIC ULTRASOUND [facility] Work Phone: Start: 2008 Fall risk assessment [facility] Start: 2008 Pneumococcal vaccination PNEUMOCOCCAL VACCINE AGE 65+ (1 of 2 - PCV13) [facility] Work Phone: Start: 2008 PNEUMOCOCCAL VACCINE AGE 65+ (1 of 2 - PCV13) PNEUMOCOCCAL VACCINE AGE 65+ (1 of 2 - PCV13) [facility] Work Phone: Start: 2008 Ultrasound scan of abdominal aorta ABDOMINAL AORTIC ULTRASOUND [facility] Work Phone: Start: 2003 RSV patients and/or patients aged 60+ years (1 - 1-dose 60+ series) RSV patients and/or patients aged 60+ years (1 - 1-dose 60+ series) [facility] Start: 2003 Zoster vacc, sc ZOSTER VACCINE [facility] Work Phone: Start: 1993 Administration of herpes zoster vaccine ZOSTER VACCINES (1 of 2) [facility] Start: 1993 ZOSTER VACCINES (1 of 2) ZOSTER VACCINES (1 of 2) [facility] Start: 1965 DTaP/Tdap/Td Vaccines (1 - Tdap) DTaP/Tdap/Td Vaccines (1 - Tdap) [facility] Start: 1961 Hepatitis C antibody, confirmatory test Hepatitis C Screening [facility] Start: 1961 Hepatitis C screening Hepatitis C Screening [facility] Start: 1955 Adolescent depression screening assessment Depression Screening (PHQ9) [facility] Start: 1955 Depression screening using PHQ-9 (Patient Health Questionnaire 9) score [facility] Start: 1953 Albumin Test strip detection limit <= 20 mg/L mass conc (U) URINE MICROALBUMIN [facility] Work Phone: Start: 1953 Diabetic foot examination Diabetes: Foot Exam [facility] Start: 1953 Glaucoma screening [facility] Start: 1953 Ophthalmic examination and evaluation OPHTHALMOLOGY EXAM [facility] Start: 1953 Urine, microalbumin URINE MICROALBUMIN [facility] Work Phone: Start: 1949 Pneumococcal Vaccine: Age 65+ (1 of 2 - PPSV23) Pneumococcal Vaccine: Age 65+ (1 of 2 - PPSV23) [facility] Start: 1946 History and physical examination, annual for health maintenance Wellness Visit [facility] Start: 1943 End: 1943 Low-dose [address] Lung Cancer Screen Low-dose CT Lung Cancer Screen [facility] Work Phone: Start: 1943 Protein mass conc COLONOSCOPY [facility] Start: 1943 Screening colonoscopy COLONOSCOPY [facility] Work Phone: Start: 1943 End: 1943 Screening for malignant neoplasm of lung Low-dose CT Lung Cancer Screen [facility] Start: 1943 End: 1943 Tetanus vaccination [facility] Start: 1943 Colonoscopy COLONOSCOPY [facility] Work Phone: Start: 1943 Cyanocobalamin vitamin b-12 Vitamin B-12 [facility] Start: 1943 Diabetes: Celiac Disease Screening Diabetes: Celiac Disease Screening [facility] Start: 1943 Fall risk assessment Falls Risk Assessment [facility] Start: 1943 Low dose computed tomography of chest without contrast Low-dose CT Lung Cancer Screen [facility] Start: 1943 Medicare Annual Wellness Visit Medicare Annual Wellness Visit (AWV) [facility] Start: 1943 Prostate specific antigen measurement PSA Level [facility] Start: 1943 Screening for malignant neoplasm of colon Colorectal Cancer Screening: Colonoscopy [facility] Start: 1943 TETANUS EVERY 10 YR TETANUS EVERY 10 YR [facility] Work Phone: aPTT in Platelet poo r plasma by Coagulation assay aPTT - baseline Lab STAT As needed (Lab) for 1 Occurrences starting 11/26/2023 [facility] Work Phone: Comment on above: As needed (Lab) for 1 Occurrences starti ng 11/26/2023 Bacteria identified in Blood by Culture [facility] Work Phone: End: 11-26-2023 Bacteria identified in Blood by Culture [facility] Work Phone: Comment on above: STAT (Lab) for 1 Occurrences starting until 11/26/2023 Bacteria identified in Blood by Culture [facility] Work Phone: End: 10-27-2024 Bacteria identified in Unspecified specimen by Aerobe culture [facility] Work Phone: Comment on above: Once for 1 Occurrences starting 10/27/20 24 until 10/27/2024 End: 06-18-2018 Basic metabolic 2000 panel Basic Metabolic Panel Routine 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) 1 Occurrences starting 06/17/2017 until 06/18/2018 [facility] Work Phone: Comment on above: 1 Occurrences starting 06/17/2017 until 06/18/2018 End: 10-14-2023 Basic metabolic 2000 panel - Serum or Plasma Basic Metabolic Panel Lab Routine Morning draw (Lab) for 3 Occurrences starting 10/12/2023 until 10/14/2023, 1 completed [facility] Work Phone: Comment on above: Morning draw (Lab) for 3 Occurrences sta rting 10/12/2023 until 10/14/2023, 1 completed End: 03-09-2026 Basic metabolic 2000 panel - Serum or Plasma Basic metabolic panel Lab Routine Coronary 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 NSTEMI (non-ST elevated myocardial infarction) (HCC) 1 Occurrences starting 03/09/2025 until 03/09/2026 [facility] Work Phone: Comment on above: 1 Occurrences starting 03/09/2025 until 03/09/2026 End: 04-20-2022 Carotid artery doppler assessment Ultrasound doppler carotid Vascular Ultrasound Routine Bilateral carotid artery stenosis 1 Occurrences starting 02/18/2021 until 04/20/2022 [facility] Comment on above: 1 Occurrences starting 02/18/2021 until 04/20/2022 End: 12-20-2023 Carotid artery doppler assessment Ultrasound doppler carotid Vascular Ultrasound Routine Bilateral carotid artery stenosis 1 Occurrences starting 10/19/2022 until 12/20/2023 [facility] Work Phone: Comment on above: 1 Occurrences starting 10/19/2022 until 12/20/2023 Cath plmt l hrt & ar ts w/njx & angio img s&i LEFT HEART CATH Cardiovascular stress test abnormal Fatigue, unspecified type SOB (shortness of breath) [facility] End: 02-28-2019 CBC and Differential CBC and Differential Routine 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) 1 Occurrences starting 02/28/2018 until 02/28/2019 [facility] CBC panel - Blood by Automated count CBC Lab STAT As needed (Lab) for 1 Occurrences starting 11/26/2023 [facility] Work Phone: Comment on above: As needed (Lab) for 1 Occurrences starti ng 11/26/2023 End: 12-02-2023 CBC panel - Blood by Automated count CBC Lab STAT Every other day (Lab) for 3 Occurrences starting 11/28/2023 until 12/02/2023 [facility] Work Phone: Comment on above: Every other day (Lab) for 3 Occurrences starting 11/28/2023 until 12/02/2023 End: 10-14-2023 CBC W Auto Differential panel - Blood CBC and Auto Differential Lab Routine Morning draw (Lab) for 3 Occurrences starting 10/12/2023 until 10/14/2023, 2 completed [facility] Work Phone: Comment on above: Morning draw (Lab) for 3 Occurrences sta rting 10/12/2023 until 10/14/2023, 2 completed End: 11-11-2019 Complete blood count with white cell differential, manual CBC and Differential Routine 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) 1 Occurrences starting 11/11/2018 until 11/11/2019 [facility] Comment on above: 1 Occurrences starting 11/11/2018 until 11/11/2019 End: 03-13-2020 Complete blood count with white cell differential, manual CBC and Differential Routine 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) 1 Occurrences starting 03/13/2019 until 03/13/2020 [facility] Comment on above: 1 Occurrences starting 03/13/2019 until 03/13/2020 End: 02-19-2022 Complete blood count with white cell differential, manual CBC and Differential Lab Routine Type 1 diabetes mellitus with diabetic polyneuropathy (HCC) 1 Occurrences starting 02/18/2021 until 02/19/2022 [facility] Comment on above: 1 Occurrences starting 02/18/2021 until 02/19/2022 End: 02-14-2023 Complete blood count with white cell differential, manual CBC and Differential Lab Routine 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) 1 Occurrences starting 02/13/2022 until 02/14/2023 [facility] Work Phone: Comment on above: 1 Occurrences starting 02/13/2022 until 02/14/2023 End: 02-18-2025 Complete blood count with white cell differential, manual CBC and Differential Lab Routine 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) 1 Occurrences starting 02/18/2024 until 02/18/2025 [facility] Comment on above: 1 Occurrences starting 02/18/2024 until 02/18/2025 End: 07-22-2025 Complete blood count with white cell differential, manual CBC and Differential Lab Routine 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) 1 Occurrences starting 07/21/2024 until 07/22/2025 [facility] Comment on above: 1 Occurrences starting 07/21/2024 until 07/22/2025 End: 03-13-2026 Complete blood count with white cell differential, manual CBC and Differential Lab Routine 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) 1 Occurrences starting 03/12/2025 until 03/13/2026 [facility] Comment on above: 1 Occurrences starting 03/12/2025 until 03/13/2026 End: 10-27-2025 Complete PFT with Pre and Post Bronchodilator Complete PFT with Pre and Post Bronchodilator PFT Routine Pulmonary emphysema, unspecified emphysema type (HCC) 1 Occurrences starting 10/27/2024 until 10/27/2025 [facility] Comment on above: 1 Occurrences starting 10/27/2024 until 10/27/2025 End: 07-06-2019 Comprehensive metabolic 2000 panel Comprehensive Metabolic Panel Routine 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) 1 Occurrences starting 07/05/2018 until 07/06/2019 [facility] Comment on above: 1 Occurrences starting 07/05/2018 until 07/06/2019 End: 11-11-2019 Comprehensive metabolic 2000 panel Comprehensive Metabolic Panel Routine Essential hypertension 1 Occurrences starting 11/11/2018 until 11/11/2019 [facility] Comment on above: 1 Occurrences starting 11/11/2018 until 11/11/2019 End: 07-17-2020 Comprehensive metabolic 2000 panel Comprehensive Metabolic Panel Lab Routine Type 1 diabetes mellitus with diabetic polyneuropathy (HCC) 1 Occurrences starting 07/17/2019 until 07/17/2020 [facility] Comment on above: 1 Occurrences starting 07/17/2019 until 07/17/2020 End: 11-16-2020 Comprehensive metabolic 2000 panel Comprehensive Metabolic Panel Lab Routine Type I diabetes mellitus with neurological manifestations, uncontrolled (HCC) 1 Occurrences starting 11/16/2019 until 11/16/2020 [facility] Comment on above: 1 Occurrences starting 11/16/2019 until 11/16/2020 End: 03-13-2020 Comprehensive metabolic 2000 panel Comprehensive Metabolic Panel Routine 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) 1 Occurrences starting 03/13/2019 until 03/13/2020 [facility] Comment on above: 1 Occurrences starting 03/13/2019 until 03/13/2020 End: 02-19-2022 Comprehensive metabolic 2000 panel - Serum or Plasma Comprehensive Metabolic Panel Lab Routine Type 1 diabetes mellitus with diabetic polyneuropathy (HCC) 1 Occurrences starting 02/18/2021 until 02/19/2022 [facility] Comment on above: 1 Occurrences starting 02/18/2021 until 02/19/2022 End: 02-14-2023 Comprehensive metabolic 2000 panel - Serum or Plasma Comprehensive Metabolic Panel Lab Routine 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) 1 Occurrences starting 02/13/2022 until 02/14/2023 [facility] Comment on above: 1 Occurrences starting 02/13/2022 until 02/14/2023 End: 06-20-2023 Comprehensive metabolic 2000 panel - Serum or Plasma Comprehensive Metabolic Panel Lab Routine 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) 1 Occurrences starting 06/19/2022 until 06/20/2023 [facility] Work Phone: Comment on above: 1 Occurrences starting 06/19/2022 until 06/20/2023 End: 02-18-2025 Comprehensive metabolic 2000 panel - Serum or Plasma Comprehensive Metabolic Panel Lab Routine 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) 1 Occurrences starting 02/18/2024 until 02/18/2025 [facility] Work Phone: Comment on above: 1 Occurrences starting 02/18/2024 until 02/18/2025 End: 07-22-2025 Comprehensive metabolic 2000 panel - Serum or Plasma Comprehensive Metabolic Panel Lab Routine 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) 1 Occurrences starting 07/21/2024 until 07/22/2025 [facility] Work Phone: Comment on above: 1 Occurrences starting 07/21/2024 until 07/22/2025 End: 11-14-2025 Comprehensive metabolic 2000 panel - Serum or Plasma Comprehensive Metabolic Panel Lab Routine 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) 1 Occurrences starting 11/13/2024 until 11/14/2025 [facility] Work Phone: Comment on above: 1 Occurrences starting 11/13/2024 until 11/14/2025 End: 03-13-2026 Comprehensive metabolic 2000 panel - Serum or Plasma Comprehensive Metabolic Panel Lab Routine 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) 1 Occurrences starting 03/12/2025 until 03/13/2026 [facility] Work Phone: Comment on above: 1 Occurrences starting 03/12/2025 until 03/13/2026 End: 02-28-2019 Comprehensive metabolic panel [AGGREGATE] Comprehensive Metabolic Panel Routine 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) Essential hypertension 1 Occurrences starting 02/28/2018 until 02/28/2019 [facility] End: 10-30-2018 Comprehensive metabolic panel [AGGREGATE] Comprehensive Metabolic Panel Routine 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) Essential hypertension Pure hypercholesterolemia 1 Occurrences starting 10/29/2017 until 10/30/2018 [facility] Work Phone: End: 11-26-2023 ECG 12 lead [facility] Work Phone: Comment on above: Once for 1 Occurrences starting 11/26/19 24 until 11/26/2023 Electrocardiogram, 12-lead PRN ACS symptoms Electrocardiogram, 12-lead PRN ACS symptoms ECG Routine As needed until discontinued starting 10/11/2023 [facility] Work Phone: Comment on above: As needed until discontinued starting Electrocardiogram, 12-lead PRN ACS symptoms Electrocardiogram, 12-lead PRN ACS symptoms ECG Routine As needed until discontinued starting 10/11/2023 [facility] Work Phone: Comment on above: As needed until discontinued starting End: 02-28-2019 External Lab Microalbumin/Creatinine External Lab Microalbumin/Creatinine Routine 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) Essential hypertension 1 Occurrences starting 02/28/2018 until 02/28/2019 [facility] End: 11-11-2019 External Lab Microalbumin/Creatinine External Lab Microalbumin/Creatinine Routine Essential hypertension 1 Occurrences starting 11/11/2018 until 11/11/2019 [facility] Comment on above: 1 Occurrences starting 11/11/2018 until 11/11/2019 End: 02-19-2022 External Lab Microalbumin/Creatinine External Lab Microalbumin/Creatinine Lab Routine Type 1 diabetes mellitus with diabetic polyneuropathy (HCC) 1 Occurrences starting 02/18/2021 until 02/19/2022 [facility] Comment on above: 1 Occurrences starting 02/18/2021 until 02/19/2022 End: 02-14-2023 External Lab Microalbumin/Creatinine External Lab Microalbumin/Creatinine Lab Routine 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) 1 Occurrences starting 02/13/2022 until 02/14/2023 [facility] Comment on above: 1 Occurrences starting 02/13/2022 until 02/14/2023 Glucose [Mass/volume ] in Serum or Plasma POCT GLUCOSE Point of Care Testing Routine 4x daily - AC and at bedtime until discontinued starting 10/11/2023 [facility] Work Phone: Comment on above: 4x daily - AC and at bedtime until disco ntinued starting 10/11/2023 End: 10-15-2023 Glucose [Mass/volume] in Serum or Plasma POCT GLUCOSE Point of Care Testing Routine 4 times daily before meals and at bedtime for 3 Days starting 10/12/2023 until 10/15/2023 [facility] Work Phone: Comment on above: 4 times daily before meals and at bedtim e for 3 Days starting 10/12/2023 until 10/15/2023 End: 02-28-2019 HbA1c Hemoglobin A1c Routine 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) Essential hypertension 1 Occurrences starting 02/28/2018 until 02/28/2019 [facility] End: 10-30-2018 HbA1c Hemoglobin A1c Routine 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) Essential hypertension Pure hypercholesterolemia 1 Occurrences starting 10/29/2017 until 10/30/2018 [facility] Work Phone: End: 07-17-2020 HbA1c (Bld) [Mass fraction] Hemoglobin A1c Lab Routine Type 1 diabetes mellitus with diabetic polyneuropathy (HCC) 1 Occurrences starting 07/17/2019 until 07/17/2020 [facility] Comment on above: 1 Occurrences starting 07/17/2019 until 07/17/2020 End: 11-16-2020 HbA1c (Bld) [Mass fraction] Hemoglobin A1c Lab Routine Type I diabetes mellitus with neurological manifestations, uncontrolled (HCC) 1 Occurrences starting 11/16/2019 until 11/16/2020 [facility] Comment on above: 1 Occurrences starting 11/16/2019 until 11/16/2020 End: 03-13-2020 HbA1c (Bld) [Mass fraction] Hemoglobin A1c Routine 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) 1 Occurrences starting 03/13/2019 until 03/13/2020 [facility] Comment on above: 1 Occurrences starting 03/13/2019 until 03/13/2020 End: 02-19-2022 Hemoglobin A1c/Hemoglobin.total in Blood Hemoglobin A1c Lab Routine Type 1 diabetes mellitus with diabetic polyneuropathy (HCC) 1 Occurrences starting 02/18/2021 until 02/19/2022 [facility] Comment on above: 1 Occurrences starting 02/18/2021 until 02/19/2022 End: 02-14-2023 Hemoglobin A1c/Hemoglobin.total in Blood Hemoglobin A1c Lab Routine 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) 1 Occurrences starting 02/13/2022 until 02/14/2023 [facility] Comment on above: 1 Occurrences starting 02/13/2022 until 02/14/2023 End: 06-20-2023 Hemoglobin A1c/Hemoglobin.total in Blood Hemoglobin A1c Lab Routine 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) 1 Occurrences starting 06/19/2022 until 06/20/2023 [facility] Comment on above: 1 Occurrences starting 06/19/2022 until 06/20/2023 End: 02-18-2025 Hemoglobin A1c/Hemoglobin.total in Blood Hemoglobin A1c Lab Routine 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) 1 Occurrences starting 02/18/2024 until 02/18/2025 [facility] Comment on above: 1 Occurrences starting 02/18/2024 until 02/18/2025 End: 07-22-2025 Hemoglobin A1c/Hemoglobin.total in Blood Hemoglobin A1c Lab Routine 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) 1 Occurrences starting 07/21/2024 until 07/22/2025 [facility] Comment on above: 1 Occurrences starting 07/21/2024 until 07/22/2025 End: 11-14-2025 Hemoglobin A1c/Hemoglobin.total in Blood Hemoglobin A1c Lab Routine 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) 1 Occurrences starting 11/13/2024 until 11/14/2025 [facility] Comment on above: 1 Occurrences starting 11/13/2024 until 11/14/2025 End: 03-13-2026 Hemoglobin A1c/Hemoglobin.total in Blood Hemoglobin A1c Lab Routine 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) 1 Occurrences starting 03/12/2025 until 03/13/2026 [facility] Comment on above: 1 Occurrences starting 03/12/2025 until 03/13/2026 End: 07-06-2019 Hemoglobin A1c/Hemoglobin.total mass fraction (Bld) Hemoglobin A1c Routine 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) 1 Occurrences starting 07/05/2018 until 07/06/2019 [facility] Comment on above: 1 Occurrences starting 07/05/2018 until 07/06/2019 End: 11-11-2019 Hemoglobin A1c/Hemoglobin.total mass fraction (Bld) Hemoglobin A1c Routine 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) 1 Occurrences starting 11/11/2018 until 11/11/2019 [facility] Comment on above: 1 Occurrences starting 11/11/2018 until 11/11/2019 End: 06-18-2018 Hemoglobin A1c/Hemoglobin.total mass fraction (Bld) Hemoglobin A1c Routine 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) 1 Occurrences starting 06/17/2017 until 06/18/2018 [facility] Work Phone: Comment on above: 1 Occurrences starting 06/17/2017 until 06/18/2018 Heparin unfractionat ed [Units/volume] in Platelet poor plasma by Chromogenic method [facility] Work Phone: Comment on above: As needed (Lab) for 1 Occurrences starti ng 11/26/2023 As needed (Lab) for 30 Occurrences starting 11/26/2023 End: 10-13-2023 Home O2 eval (desaturation screen) Home O2 eval (desaturation screen) Respiratory Care Routine Once for 1 Occurrences starting 10/13/2023 until 10/13/2023 [facility] Service Area Work Phone: Comment on above: Once for 1 Occurrences starting 10/13/20 23 until 10/13/2023 End: 11-11-2019 Lipid 1996 panel Lipid Panel Routine 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) 1 Occurrences starting 11/11/2018 until 11/11/2019 [facility] Comment on above: 1 Occurrences starting 11/11/2018 until 11/11/2019 End: 07-17-2020 Lipid 1996 panel Lipid Panel Lab Routine Pure hypercholesterolemia 1 Occurrences starting 07/17/2019 until 07/17/2020 [facility] Comment on above: 1 Occurrences starting 07/17/2019 until 07/17/2020 End: 02-19-2022 Lipid 1996 panel - Serum or Plasma Lipid Panel Lab Routine Type 1 diabetes mellitus with diabetic polyneuropathy (HCC) 1 Occurrences starting 02/18/2021 until 02/19/2022 [facility] Comment on above: 1 Occurrences starting 02/18/2021 until 02/19/2022 End: 02-18-2025 Lipid 1996 panel - Serum or Plasma Lipid Panel Lab Routine 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) 1 Occurrences starting 02/18/2024 until 02/18/2025 [facility] Comment on above: 1 Occurrences starting 02/18/2024 until 02/18/2025 End: 07-22-2025 Lipid 1996 panel - Serum or Plasma Lipid Panel Lab Routine 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) 1 Occurrences starting 07/21/2024 until 07/22/2025 [facility] Comment on above: 1 Occurrences starting 07/21/2024 until 07/22/2025 End: 11-14-2025 Lipid 1996 panel - Serum or Plasma Lipid Panel Lab Routine 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) Pure hypercholesterolemia 1 Occurrences starting 11/13/2024 until 11/14/2025 [facility] Comment on above: 1 Occurrences starting 11/13/2024 until 11/14/2025 End: 03-13-2026 Lipid 1996 panel - Serum or Plasma Lipid Panel Lab Routine 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) 1 Occurrences starting 03/12/2025 until 03/13/2026 [facility] Comment on above: 1 Occurrences starting 03/12/2025 until 03/13/2026 End: 02-28-2019 Lipid panel Lipid Panel Routine 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) 1 Occurrences starting 02/28/2018 until 02/28/2019 [facility] Noninvasive Ventilation Noninvas frank Ventilation Respiratory Care Routine For RT frequency use only for continuous procedures with task-based reminders at 8a and 8p until discontinued starting 11/26/2023 [facility] Work Phone: Comment on above: For RT frequency use only for continuous procedures with task-based reminders at 8a and 8p until discontinued starting 11/26/2023 End: 03-12-2020 Prostate specific Ag [Mass/Vol] PSA, Screen Routine Prostate cancer screening 1 Occurrences starting 03/13/2019 until 03/12/2020 [facility] Comment on above: 1 Occurrences starting 03/13/2019 until 03/12/2020 End: 02-13-2023 Prostate specific Ag [Mass/volume] in Serum or Plasma PSA, Screen Lab Routine Prostate cancer screening 1 Occurrences starting 02/13/2022 until 02/13/2023 [facility] Comment on above: 1 Occurrences starting 02/13/2022 until 02/13/2023 Prothrombin time (PT) Protime-IN R Lab STAT As needed (Lab) for 1 Occurrences starting 11/26/2023 [facility] Work Phone: Comment on above: As needed (Lab) for 1 Occurrences starti ng 11/26/2023 End: 10-29-2018 PSA, Screen PSA, Screen Routine Prostate cancer screening 1 Occurrences starting 10/29/2017 until 10/29/2018 [facility] Work Phone: End: 10-11-2023 Respiratory care eval and treat Respiratory care eval and treat Respiratory Care Routine Once for 1 Occurrences starting 10/11/2023 until 10/11/2023 [facility] Work Phone: Comment on above: Once for 1 Occurrences starting 10/11/20 23 until 10/11/2023 End: 10-21-2024 SPECT Heart perfusion NM Myocardial Perfusion Multiple SPECT Imaging Routine Congestive heart failure, unspecified HF chronicity, unspecified heart failure type (HCC) 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 1 Occurrences starting 10/21/2023 until 10/21/2024 [facility] Work Phone: Comment on above: 1 Occurrences starting 10/21/2023 until 10/21/2024 End: 11-11-2019 T4 free mass conc T4, Free Routine 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) 1 Occurrences starting 11/11/2018 until 11/11/2019 [facility] Comment on above: 1 Occurrences starting 11/11/2018 until 11/11/2019 End: 02-18-2025 Thyrotropin [Units/volume] in Serum or Plasma TSH Lab Routine 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) 1 Occurrences starting 02/18/2024 until 02/18/2025 [facility] Comment on above: 1 Occurrences starting 02/18/2024 until 02/18/2025 End: 07-22-2025 Thyrotropin [Units/volume] in Serum or Plasma TSH Lab Routine 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) 1 Occurrences starting 07/21/2024 until 07/22/2025 [facility] Comment on above: 1 Occurrences starting 07/21/2024 until 07/22/2025 End: 11-14-2025 Thyrotropin [Units/volume] in Serum or Plasma TSH Lab Routine 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) 1 Occurrences starting 11/13/2024 until 11/14/2025 [facility] Comment on above: 1 Occurrences starting 11/13/2024 until 11/14/2025 Thyrotropin [Units/volume] in Serum or Plasma TSH with Reflex Free T4 Lab Routine 02/12/2025 10:25 AM EDT [facility] Work Phone: End: 03-13-2026 Thyrotropin [Units/volume] in Serum or Plasma TSH Lab Routine 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) 1 Occurrences starting 03/12/2025 until 03/13/2026 [facility] Comment on above: 1 Occurrences starting 03/12/2025 until 03/13/2026 End: 11-11-2019 Thyrotropin Qn TSH Routine 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) 1 Occurrences starting 11/11/2018 until 11/11/2019 [facility] Comment on above: 1 Occurrences starting 11/11/2018 until 11/11/2019 End: 02-28-2019 Thyroxine (T4) free T4, Free Routine 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) 1 Occurrences starting 02/28/2018 until 02/28/2019 [facility] End: 02-18-2025 Thyroxine (T4) free [Mass/volume] in Serum or Plasma T4, Free Lab Routine 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) 1 Occurrences starting 02/18/2024 until 02/18/2025 [facility] Comment on above: 1 Occurrences starting 02/18/2024 until 02/18/2025 End: 07-22-2025 Thyroxine (T4) free [Mass/volume] in Serum or Plasma T4, Free Lab Routine 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) 1 Occurrences starting 07/21/2024 until 07/22/2025 [facility] Comment on above: 1 Occurrences starting 07/21/2024 until 07/22/2025 End: 11-14-2025 Thyroxine (T4) free [Mass/volume] in Serum or Plasma T4, Free Lab Routine 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) 1 Occurrences starting 11/13/2024 until 11/14/2025 [facility] Comment on above: 1 Occurrences starting 11/13/2024 until 11/14/2025 End: 03-13-2026 Thyroxine (T4) free [Mass/volume] in Serum or Plasma T4, Free Lab Routine 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) 1 Occurrences starting 03/12/2025 until 03/13/2026 [facility] Comment on above: 1 Occurrences starting 03/12/2025 until 03/13/2026 End: 02-28-2019 TSH TSH Routine 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) 1 Occurrences starting 02/28/2018 until 02/28/2019 [facility] Immunizations Immunization Date Immunization Notes Care Provider Nancy amor 07-03-2020 zoster vaccine recombinant Ayanna Albert DO Work Phone: [facility] Work Phone: 04-17-2020 zoster vaccine recombinant Ayanna Juanito DO Work Phone: [facility] Work Phone: 03-31-2019 pneumococcal polysaccharide vaccine, 23 valent Ayanna Albert DO Work Phone: [facility] Work Phone: 01-31-2018 pneumococcal conjuga te vaccine, 13 valent Ayanna Albert DO Work Phone: [facility] Work Phone: 11-10-2016 HEMOGLOBIN A1C Ya [facility] Work Phone: Payers Date Payer Category Payer Self-pay [id number] 2021 Medicare (Managed Care) [employer] LDEN MEDICARE [id number] 2021 Medicare PPO [employer] MEDICARE P JAYDON (PPO) [id number] 2021 Private Health Insurance [id number] 2015 Medicare [id number] 2015 Medicare [id number]. [id number] 2015 Medicare [id number] [id number]. [id number] 2015 Medicare [id number] 2.16.840.1.986965.3.249.13 1945 Unknown [id number] 2.16.840.1.016514.3.579.2. 1069 1943 Unknown [id number] 2.16.840.1.355414.3.579.2. 1068 1943 Unknown [id number] 2.16.840.1.545595.3.579.2. 1068 1943 Unknown [id number] 2.16.840.1.655081.3.579.2. 1068 1943 Unknown [id number] 2.16.840.1.805677.3.579.2. 1068 1943 Unknown [id number] 2.16.840.1.727214.3.579.2. 1068 1943 Unknown [id number] 2.16.840.1.890761.3.579.2. 1068 1943 Unknown [id number] 2.16.840.1.644440.3.579.2. 1068 1943 Unknown [id number] 2.16.840.1.382481.3.579.2. 1068 1943 Unknown [id number] 2.16.840.1.333823.3.579.2. 1068 1943 Unknown [id number] 2.16.840.1.275315.3.579.2. 1068 1943 Unknown [id number] 2.16.840.1.929597.3.579.2. 356 1943 Unknown [id number] 2.16.840.1.302678.3.579.2. 1244 1943 Unknown [id number] 2.16.840.1.144042.3.579.2. 1244 1943 Unknown [id number] 2.16.840.1.561186.3.579.2. 1244 1943 Unknown [id number] 2.16.840.1.007004.3.579.2. 1243 1943 Unknown [id number] 2.16.840.1.555001.3.579.2. 1243 1943 Unknown [id number] 2.16.840.1.472825.3.579.2. 903 1943 Unknown [id number] 2.16.840.1.349051.3.579.2. 1943 Unknown [id number] 2.16.840.1.861717.3.579.2. 1943 Unknown [id number] 2.16.840.1.404975.3.579.2. 1943 Unknown [id number] 2.16.840.1.624123.3.579.2. 1943 Unknown [id number] 2.16.840.1.858260.3.579.2. 1943 Unknown [id number] 2.840.1.013690.3.579.2 1943 Unknown [id number] 2.16.840.1.428681.3.579.2. 1943 Unknown [id number] 2.16.840.1.968530.3.579.2 1943 Unknown [id number] 2.16.840.1.040412.3.579.2. 3 1943 Unknown [id number] 2.840.1.491723.3.579.2. 1943 Unknown [id number] 2.16.840.1.486232.3.579.2. 90 1943 Unknown [id number] 2.16.840.1.593155.3.579.2. 1943 Unknown [id number] 2.16.840.1.341098.3.579.2. 90 1943 Unknown [id number] 2.16.840.1.875434.3.579.2. 1943 Unknown [id number] 2.16.840.1.189383.3.579.2. 1243 Unknown [employer] Unknown [id number] 2.16.840.1.127856.3.579.2. 462 Unknown [id number] 2.16.840.1.088657.3.579.2. 462 Unknown [id number] 2.16.840.1.738987.3.579.2. 462 Unknown [id number] 2.16.840.1.201645.3.579.2. 462 Unknown [id number] 2.16.840.1.888517.3.579.2. 462 Unknown [id number] 2.16.840.1.503948.3.579.2. 462 Unknown [id number] 2.16.840.1.510379.3.579.2. 462 Unknown [id number] 2.16.840.1.728397.3.579.2. 462 Unknown [id number] 2.16.840.1.006672.3.579.2. 462 Unknown [id number] 2.16.840.1.100888.3.579.2. 462 Unknown [id number] 2.16.840.1.610891.3.579.2. 462 Unknown [id number] 2.16.840.1.826834.3.579.2. 462 Social History Date Type Detail Facility Start: 11-01-1965 End: 11-09-2024 Tobacco smoking status TXIS Current every day smoker [facility] Work Phone: Start: 02-28-2018 End: 02-28-2025 Cigarettes smoked current (pack per day) - Reported [facility] Start: 1945 Sex Assigned At Not on file [facility] Phone: Start: 07-17-2019 End: 03-12-2025 Alcohol intake Current non-drinker of alcohol (finding) [facility] Start: 06-18-2020 End: 11-09-2024 Tobacco use and exposure Never used [facility] Start: 02-03-2022 End: 02-26-2025 Exposure to SARS-CoV-2 (event) Not sure [facility] Start: 11-01-1965 History of tobacco use Cigarette Smoker [facility] Start: 10-19-2022 End: 02-28-2025 Tobacco use panel [facility] Start: 08-25-2023 End: 02-26-2025 Alcohol intake Lifetime non-drinker (finding) [facility] Work Phone: How hard is it for y ou to pay for the very basics like food, housing, medical care, and heating Not hard at all [facility] In the past 12 month s, was there a time when you were not able to pay the mortgage or rent on time? No [facility] Work Phone: Start: 1945 Sex Assigned At Male [facility] Start: 10-11-2023 Gender identity Identifies as male gender (finding) [facility] Work Phone: Start: 10-11-2023 Sexual orientation Heterosexual (finding) [facility] Work Phone: Start: 08-05-2021 Tobacco smoking status NHIS Unknown if ever smoked [facility] (I/We) worried whehermilo er (my/our) food would run out before (I/we) got money to buy more. Never true [facility] Start: 02-09-2025 Sex Male (finding) [facility] Medical Equipment Procedure Code Equipment Code Equipment Origin al Text Equipment Identifier Dates [id number] Start: 08-12-2015 End: 03-13-2019 USE DIRECTED FOUR TIMES A DAY FOR INSULIN INJECTION [id number] Start: 09-12-2018 E10.9 Use as directed 4 times per day. [id number] Start: 06-10-2017 use as directed 4 times per day for insulin injection. [id number] Start: 06-17-2017 use as directed 4 times per day for insulin injection. [id number] Start: 05-19-2016 End: 06-17-2017 Use as directed 4 times per day. Dx E10.9 Patient with type 1 DM on insulin with hypoglycemia. Needs to check BG QID; takes insulin QID . [id number] Start: 03-13-2019 Use as directed 4x daily DX code E10.65 . [id number] Start: 10-20-2019 Use as directed 4 times per day. Dx E10.9 Patient with type 1 DM on insulin with hypoglycemia. Needs to check BG QID; takes insulin QID . [id number] Start: 03-15-2020 End: 02-18-2021 Use as directed 4x daily DX code E10.65 . [id number] Start: 10-07-2020 End: 10-08-2021 Use as directed 4 times per day. Dx E10.9 Patient with type 1 DM on insulin with hypoglycemia. Needs to check BG QID; takes insulin QID . [id number] Start: 02-18-2021 End: 02-13-2022 Use as directed 4x daily DX code E10.65 . [id number] Start: 10-09-2021 End: 12-31-2022 Use as directed 4 times per day. Dx E10.9 Patient with type 1 DM on insulin with hypoglycemia. Needs to check BG QID; takes insulin QID . [id number] Start: 02-13-2022 End: 02-19-2023 Use as directed 4x daily DX code E10.65 . [id number] Start: 12-31-2022 Use as directed 4 times per day. Dx E10.9 Patient with type 1 DM on insulin with hypoglycemia. Needs to check BG QID; takes insulin QID . [id number] Start: 02-19-2023 End: 03-06-2024 BD Jolynn 2nd Gen Pen Needle 32 gauge x 5/32 needle [id number] Start: 07-01-2023 Use as directed 4 times per day. Dx E10.9 Patient with type 1 DM on insulin with hypoglycemia. Needs to check BG QID; takes insulin QID . [id number] Start: 02-19-2023 Use as directed 4x daily Dx code E10.65 . [id number] Start: 12-01-2023 End: 12-08-2024 TEST BLOOD GLUCO SE FOUR TIMES DAILY E10.65 . [id number] Start: 03-06-2024 Use as directed 4x daily Dx code E10.65 . [id number] Start: 12-08-2024 Blood Sugar Diagnostic (Contour Next [...] verbalized understanding and had no further questions. [facility] 03-27-2025 Miscellaneous Notes Called pt's Alice with [...] Woo Grigsby MD documented in this encounter [facility] 03-27-2025 Telephone encounter Note Left voicemail asking for pt to call back to go over lab results per Dr. Grigsby. Given phone number to call back. [facility] 03-27-2025 Telephone encounter Note ----- Message from Ej Isbell sent at 03/27/2025 10:43 AM EDT ----- ----- Message ----- From: Woo Girgsby MD Sent: 03/27/2025 10:35 AM EDT To: Luisa Easley RN Ok we can drop to lasix 40mg daily and continue spironolactone Potassium is normal He can take extra 40mg lasix PRN for weight gain and shortness of breath ----- Message ----- From: Interface, Lab Results In [facility] Sent: 03/24/2025 7:18 AM EDT To: Woo Grigsby MD [facility] 03-12-2025 Note Patient ID: Enoc Fernandes is [...] being taken. 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 Eye exam is current. Currently taking: No [...] past family his (more content not included)... [facility] 03-12-2025 History of Present illness Narrative [...] being taken. 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 Eye exam is current. Currently taking: No [...] if BG <150 at HS. 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 Had bilat cataract extraction Dr. Lopez. Sees Dr. Browne in [place] every year routinely.Has blurred vision with low [...] Call if BG consistently <70 or >250. [phone] Continue to check blood sugar 3 times [...] 03/12/25 1:21 PM documented in this encounter [facility] 03-09-2025 Note General Cardiology N ew Patient Clinic Consult [facility] Physician Group, Heart & Vascular 03/09/2025 Woo Grigsby MD [address] [place] [address], 3rd Floor Medical Office [facility] [address] Patient: Enoc Fernandes Date of : [...] to be ischemic Coronary 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 (Primary) Patient underwent [...] file. Woo Grigsby MD, FACC Non-Invasive Cardiology [facility] Heart and Vascular Physician Group P:[phone] F:[phone] ---- History of Present Illness: Enoc Fernandes is a 79 y.o. man with a past medical history of insulin-dependent diabetes for 30 years, history of tobacco use, recent COVID infection with systolic dysfunction ejection fraction ranging from 35 to 45% who presented initially to [facility]. He underwent stress testing which showed inferior wall abnormality as well as ejection fraction of 50%. I initially met with him back in January 2024 and he was doing quite well, however he presented in October with symptoms of fatigue, malaise, flash pulmonary edema and hypertensive emergency with reduced ejection fraction at [facility]. 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 [facility] 03-09-2025 History of Present illness Narrative General Cardiology New Patient Clinic Consult [facility], Heart & Vascular 03/09/2025 Woo Grigsby MD [facility] [address]rid Pe[facility], 3rd Floor Medical Office [facility] [phone] Patient: Enoc Fernandes Date of : [...] to be ischemic Coronary 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 (Primary) Patient underwent [...] No follow-ups on file. Woo Grigsby MD, [facility] Non-Invasive Cardiology [facility] Heart and Vascular Physician Group P:[phone] F:[phone] History of Present Illness: Enoc Fernandes is a 79 y.o. man with a past medical history of insulin-dependent diabetes for 30 years, history of tobacco use, recent COVID infection with systolic dysfunction ejection fraction ranging from 35 to 45% who presented initially to [facility]. He underwent stress testing which showed inferior wall abnormality as well as ejection fraction of 50%. I initially met with him back in January 2024 and he was doing quite well, however he presented in October with symptoms of fatigue, malaise, flash pulmonary edema and hypertensive emergency with reduced ejection fraction at [facility]. 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; Service: Cardiovascular SKIN CANCER EXCISION 09/2021 L ear Family History Problem Relation Age of Onset Coronary artery disease Father Alzheimer's disease Father Social History Tobacco Use Smoking Status Every Day Current packs/day: 0.50 Average packs/day: 0.5 packs/day for 61.4 years (30.7 ttl pk-yrs) Types: Cigarettes Start date: 1965 Smokeless Tobacco Never Allergies: Oksqzhq-cuz-hzp reductase inhibitors All of the information has [...] 3 tablet, Rfl: 3 OXYGEN-AIR DELIVERY SYSTEMS [facility] Inhale 2 L/min See Admin Instructions ., [...] mood and affect, appropriate conversation Cardiovascular Studies: [facility] 2024 Echo 2023 Carotids 2024 Summary 1. [...] arterial duplex was normal Echocardiogram reviewed from [facility], 10/11/2023 moderately decreased ejection fraction estimated [...] suggesting prior/existing ASCVD documented in this encounter [facility] 03-09-2025 Instructions Woo Grigsby MD - 03/09/2025 7:56 AM EDT How to Contact your Care Team: Provider: Dr. Woo Grigsby MD Clinic Nurse: FIDEL Moran Clinic MA: SUSAN Pagan REFILLS: When in need for refills please call your care team or the office at [phone]. Please include medication name, pharmacy name, and [...] in 2 weeks documented in this encounter [facility] 03-05-2025 Note HMS DISCHARGE SUMMAR Y -- [facility] Enoc Fernandes : 1945 Admitted: 02/28/2025 Discharge Date: 03/05/25 PCP Handoff Recommended Outpatient Testing None Results Pending At Discharge None Clinical Summary Enoc Fernandes is a 79 y.o. male patient of Ryley Jeter MD with history of type I IDDM, hypertension, CAD, diastolic HF, dyslipidemia, COPD, CKD presented to [facility] on 02/28/2025 with shortness of breath. Assessment/plan [...] . Quantity: 3 tablet OXYGEN-AIR DELIVERY SYSTEMS [facility] Inhale 2 L/min See Admin Instructions . pen needle, diabetic 32 gauge x 5/32 Ndle Commonly known as: BD Ultra-Fine Jolynn Pen Needle Use as directed 4x daily Dx code E10.65 . Quantity: 400 each tamsulosin 0.4 mg capsule Commonly known as: FLOMAX Take 1 (one) capsule (0.4 mg total) by mouth daily . (more content not included)... [facility] 03-04-2025 Note [facility] PROGRESS NOTE Patient Name: Enoc Fernandes : 1945 Assessment and Plan Enoc Fernandes is a 79 y.o. male patient of Ryley Jeter MD with history of type I IDDM, hypertension, CAD, diastolic HF, dyslipidemia, COPD, CKD presented to [facility] on 02/28/2025 with shortness of breath. Assessment/plan [...] structure Consult cardiology, I spoke with Dr. aGray over the phone recommended 48 hours of [...] AUTHENTICATED BY BERNADETTE PARNELL ON 03/04/2025 11:10:58 [facility] 03-03-2025 Note [facility] PROGRESS NOTE Patient Name: Enoc Fernandes : 1945 Assessment and Plan Enoc Fernandes is a 79 y.o. male patient of Ryley Jeter MD with history of type I IDDM, hypertension, CAD, diastolic HF, dyslipidemia, COPD, CKD presented to [facility] on 02/28/2025 with shortness of breath. Assessment/plan [...] AUTHENTICATED BY BERNADETTE PARNELL ON 03/03/2025 12:05:46 [facility] 03-03-2025 Note General Cardiology I npatient Follow-up Heart & Vascular [facility] 03/03/2025 Aparna Browne, ROSS LIFT OPERATOR [facility] Patient: Enoc Fernandes Date of : 1945 (79 y.o.) PCP: Ryley Jeter MD Primary fur grader: Assessment/Plan: Enoc Fernandes is a 79 y.o. [...] Final Result by Elías Rodriguez MD (10/27/2024 0941) Review of Systems: The following system(s) were [...] dictation software was used Aparna Browne MSN, BOILER PLANT WORKER, ANP-C [1] Current Facility-Administered Medications Medication Dose [...] 20 mg 20 mg Intravenous BID Pema Muñoz MD 20 mg at 03/03/25 0913 heparin (porcine) 25,000 unit/250 mL(100 unit/mL) in D5W infusion 0-70 Units/kg/hr Intravenous Continuous Pema Muñoz MD 9 mL/hr at 03/03/25 0945 14 Units/kg/hr at 03/03/25 0945 heparin bolus from bag 0-5,000 Units 0-5,000 Units Intravenous Con (more content not included)... [facility] 03-02-2025 Note [facility] PROGRESS NOTE Patient Name: Enoc Fernandes : 1945 Assessment and Plan Enoc Fernandes is a 79 y.o. male patient of Ryley Jeter MD with history of type I IDDM, hypertension, CAD, diastolic HF, dyslipidemia, COPD, CKD presented to [facility] on 02/28/2025 with shortness of breath. Assessment/plan [...] AUTHENTICATED BY PEMA MUÑOZ, ON 03/02/2025 13:48:04 [facility] 03-01-2025 Note HMS PROGRESS NOTE Patient Name: Enoc Fernandes : 1945 Assessment and Plan Enoc Fernandes is a 79 y.o. male patient of Ryley Jeter MD with history of type I IDDM, hypertension, CAD, diastolic HF, dyslipidemia, COPD, CKD presented to [facility] on 02/28/2025 with shortness of breath. Assessment/plan [...] AUTHENTICATED BY PEMA MUÑOZ, ON 03/01/2025 12:52:52 [facility] 02-28-2025 Note HMS PROGRESS NOTE Patient Name: Enoc Fernandes : 1945 Assessment and Plan Enoc Fernandes is a 79 y.o. male patient of Ryley Jeter MD with history of type I IDDM, hypertension, CAD, diastolic HF, dyslipidemia, COPD, CKD presented to [facility] on 02/28/2025 with shortness of breath. Assessment/plan [...] AUTHENTICATED BY PEMA MUÑOZ, ON 02/28/2025 13:04:55 [facility] 02-28-2025 Note HMS HISTORY AND PHYS ICAL -- [facility] Patient Name: Enoc Fernandes : 1945 MR #: [id number] Admit Date: 02/28/2025 Physicians: Ryley Jeter MD (Family); No ref. provider found (Referring) Enoc Fernandes is a 79 y.o. male patient of Ryley Jeter MD with history of type I IDDM, hypertension, CAD, diastolic HF, dyslipidemia, COPD, CKD presented to [facility] on 02/28/2025 with shortness of breath. Assessment/plan [...] diastolic HF, dyslipidemia, COPD, CKD presented to [facility] on 02/28/2025 with shortness of breath. Patient [...] Procedure Laterality Date CATARACT EXT/ECCE Bilateral 12/2012,07/2014 CA CATH PLMT L HRT & ARTS W/NJX & ANGIO IMG S&I N/A 10/27/2024 Procedure: Coronary Angiogram; Surgeon: Elías Rodriguez MD; Location: [facility] 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; Service: Cardiovascular CA CATH PLMT L HRT & ARTS W/NJX & ANGIO IMG S&I N/A 10/27/2024 Procedure: Left Heart Cath; Surgeon: Elías Rodriguez MD; Location: 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; Service: Cardiovascular SKIN CANCER EXCISION 09/2021 L ear Family History Family History Problem Relation Age of Onset Coronary artery disease Father Alzheimer's disease Father Social History Tobacco Use History[1] Social History Substance and Sexual Activity Alcohol Use No Alcohol/week: 0.0 standard drinks of alcohol Social History Substance and Sexual Activity Drug Use No Allergy Information I have reviewed the patient's allergies. Sghoufs-boj-tbi reductase inhibitors Home Medications Home medications were reviewed. Review Of Systems All relevant systems have been reviewed and are negative except as noted in HPI or below Physical Examination BP (!) 194/62 Pulse 97 Temp 97.8 degrees F (36.6 degrees C) (Oral) Resp (!) 22 Ht 5' 7 Wt 65.8 (more content not included)... [facility] 02-26-2025 History of Present illness Narrative Subjective [...] 02/26/25 1:17 PM documented in this encounter [facility] Work Phone: 02-14-2025 History of Present illness Narrative Refaxed letter written on 01/18/[address] Grigsby to [facility]. documented in this encounter [facility] 11-14-2024 Instructions Luisa Easley RN - 11/14/2024 11:36 AM EST How to Contact your Care Team: Provider: Dr. Woo Grigsby MD Clinic Nurse: FIDEL Moran Clinic MA: SUSAN Pagan REFILLS: When in need for refills please call your care team or the office at [phone]. Please include medication name, pharmacy name, and specify 30-day or 90-day supply. Please check with your pharmacy within 24 hours of request for your refill. You must follow up as directed to continue current refills. Thank you! documented in this encounter [facility] 11-14-2024 History of Present illness Narrative General Cardiology New Patient Clinic Consult [facility] Physician Group, Heart & Vascular 11/14/2024 Woo Grigsby MD [address] [place] [id number] Patient: Enoc Fernandes Date of : 1945 (78 y.o.) PCP: Ryley Jeter MD Date of Service: 11/14/2024 Chief Complaint: Follow-up Assessment and Plan: 1. Coronary 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 (Primary) Patient underwent [...] 6 months (around 05/14/2025). Woo Grigsby MD, [facility] Non-Invasive Cardiology [facility] Heart and Vascular Physician Group P:[phone] F:[phone] History of Present Illness: Enoc Fernandes is a 78 y.o. man with a past medical history of insulin-dependent diabetes for 30 years, history of tobacco use, recent COVID infection with systolic dysfunction ejection fraction ranging from 35 to 45% who presented initially to [facility]. He underwent stress testing which showed inferior wall abnormality as well as ejection fraction of 50%. I initially met with him back in January 2024 and he was doing quite well, however he presented in October with symptoms of fatigue, malaise, flash pulmonary edema and hypertensive emergency with reduced ejection fraction at [facility]. 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 Tobacco abuse Past Surgical History: Procedure Laterality Date CATARACT EXT/ECCE Bilateral 12/2012,07/2014 CA CATH PLMT L HRT & ARTS W/NJX & ANGIO IMG S&I N/A 10/27/2024 Procedure: Coronary Angiogram; Surgeon: Elías Rodriguez MD; Location: 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; Service: Cardiovascular CA CATH PLMT L HRT & ARTS W/NJX & ANGIO IMG S&I N/A 10/27/2024 Procedure: Left Heart Cath; Surgeon: Elías Rodriguez MD; Location: [facility] 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; Service: Cardiovascular SKIN CANCER EXCISION 09/2021 L ear Family History Problem Relation Age of Onset Coronary artery disease Father Alzheimer's disease Father Social History Tobacco Use Smoking Status Every Day Current packs/day: 0.50 Average packs/day: 0.5 packs/day for 61.0 years (30.5 ttl pk-yrs) Types: Cigarettes Start date: 1965 Smokeless Tobacco Never Allergies: Qpzcubd-nex-ksm reductase inhibitors All of the information has [...] 90 tablet, Rfl: 3 OXYGEN-AIR DELIVERY SYSTEMS [facility]hale 2 L/min See Admin Instructions ., [...] mood and affect, appropriate conversation Cardiovascular Studies: [facility] 2024 Echo 2023 Carotids 2024 Summary 1. [...] arterial duplex was normal Echocardiogram reviewed from [facility], 10/11/2023 moderately decreased ejection fraction estimated [...] suggesting prior/existing ASCVD documented in this encounter [facility] 11-14-2024 Note General Cardiology N ew Patient Clinic Consult [facility] Physician Group, Heart & Vascular 11/14/2024 Woo Grigsby MD [address] [place] [id number] Patient: Enoc Fernandes Date of : 1945 (78 y.o.) PCP: Ryley Jeter MD Date of Service: 11/14/2024 Chief Complaint: Follow-up Assessment and Plan: 1. Coronary 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 (Primary) Patient underwent [...] 6 months (around 05/14/2025). Woo Grigsby MD, [facility] Non-Invasive Cardiology [facility] Heart and Vascular Physician Group P:[phone] F:[phone] ---- History of Present Illness: Enoc Fernandes is a 78 y.o. man with a past medical history of insulin-dependent diabetes for 30 years, history of tobacco use, recent COVID infection with systolic dysfunction ejection fraction ranging from 35 to 45% who presented initially to [facility]. He underwent stress testing which showed inferior wall abnormality as well as ejection fraction of 50%. I initially met with him back in January 2024 and he was doing quite well, however he presented in October with symptoms of fatigue, malaise, flash pulmonary edema and hypertensive emergency with reduced ejection fraction at [facility]. 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 Tobacco abuse Past Surgical History: Procedure Laterality Date CATARACT EXT/ECCE Bilateral 12/2012,07/2014 CA CATH PLMT L HRT & ARTS W/NJX & ANGIO IMG S&I N/A 10/27/2024 Procedure: Coronary Angiogram; Surgeon: Elías Rodriguez MD; Location: 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; Service: Cardiovascular CA CATH PLMT L HRT & ARTS W/NJX & ANGIO IMG S&I N/A 10/27/2024 Procedure: Left Heart Cath; Surgeon: Elías Rodriguez MD; Location: 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; Service: Cardiovascular SKIN CANCER EXCISION 09/2021 L ear Family History Problem Relation Age of Onset Coronary artery disease Father Alzheimer's disease Father Social History Tobacco Use Smoking Status Every Day Current packs/day: 0.50 Average packs/day: 0.5 packs/day for 61.0 years (30.5 ttl pk-yrs) Types: Cigarettes Start date: 1963 Smokeless Tobacco Never Allergies: Tkweonn-tth-ucy reductase inhibitors All of the information has been reviewed at today's visit and modified if necessary. Home Medications: Current Outpatient Medications: acetaminophen (Tylenol Arthritis Pain) 650 MG CR tablet, Take 1 (one) tablet (650 mg total) by mouth every 8 (eight) hours as needed for pain ., (more content not included)... [facility] Ambulatory 11-13-2024 Note Patient ID: Enoc Fernandes [...] required IV insulin gtt. . Hospitalized in [facility]. Reports URI symptoms with ear lockage. Pertinent [...] being taken. 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 Eye exam is current. Currently taking: No [...] mouth daily . - OXYGEN-AIR DELIVERY SYSTEMS [facility]hale 2 L/min See Admin Instructions . [...] (148 lb) 01 (more content not included)... [facility] 11-13-2024 History of Present illness Narrative [...] required IV insulin gtt. . Hospitalized in [facility]. Reports URI symptoms with ear lockage. Pertinent [...] being taken. 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 Eye exam is current. Currently taking: No oral hypoglycemic medications Admelog insulin: 7 units at breakfast; 8 units at lunch; 8-9 units at supper Lantus insulin: 15 units at bedtime Outpatient Medications Marked as Taking for the 11/13/24 encounter (Office Visit) with Payt Ortega CNP: acetaminophen (Tylenol Arthritis Pain) 650 [...] if BG <150 at HS. 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 Had bilat cataract extraction Dr. Lopez. Sees Dr. Browne in [place] every year routinely.Has blurred vision with low [...] Call if BG consistently <70 or >250. [phone] Continue to check blood sugar 3 times [...] 11/13/24 1:21 PM documented in this encounter [facility] 11-09-2024 Evaluation + Plan note Associated Problem(s): [...] be performed in conjunction with coronary revascularization. [facility] 11-09-2024 Miscellaneous Notes Associated Problem(s): Bilateral carotid [...] with coronary revascularization. documented in this encounter [facility] 11-09-2024 Note OFFICE CONSULTATION NOTE [facility] Heart and Vascular Physicians [facility] [address] (11) [facility] [address] [facility] [id number] Physicians: Ryley Jeter MD (Family); Sandi Phan,* [...] Carotid artery stenosis CHF (congestive heart failure) ([facility]) CKD (chronic kidney disease) stage 4, GFR 15-29 ml/min ([facility]) Diabetes mellitus type 1 (HCC) Emphysema lung (HCC) Hypercholesterolemia Hypertension Kidney stone 2006 Lithotripsy Normocytic anemia PAD (peripheral artery disease) ([facility]) Pneumonia Polyneuropathy Spinal stenosis, lumbar 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 [facility] 11-09-2024 History of Present illness Narrative OFFICE CONSULTATION NOTE [facility] Heart and Vascular Physicians [facility] [address] (11) [facility] [address] [facility] [phone] Physicians: Ryley Jeter MD (Family); Sandi [...] Carotid artery stenosis CHF (congestive heart failure) ([facility]) CKD (chronic kidney disease) stage 4, GFR 15-29 ml/min ([facility]) Diabetes mellitus type 1 ([facility]) Emphysema lung ([facility]) Hypercholesterolemia Hypertension Kidney stone 2006 Lithotripsy Normocytic anemia PAD (peripheral artery disease) ([facility]) Pneumonia Polyneuropathy Spinal stenosis, lumbar 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 Tobacco abuse Past Surgical History: Procedure Laterality Date CATARACT EXT/ECCE Bilateral 12/2012,07/2014 CA CATH PLMT L HRT & ARTS W/NJX & ANGIO IMG S&I N/A 10/27/2024 Procedure: Coronary Angiogram; Surgeon: Elías Rodriguez MD; Location: [facility] 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; Service: Cardiovascular CA CATH PLMT L HRT & ARTS W/NJX & ANGIO IMG S&I N/A 10/27/2024 Procedure: Left Heart Cath; Surgeon: Elías Rodriguez MD; Location: [facility] 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; Service: Cardiovascular SKIN CANCER EXCISION 09/2021 L [...] Reported on 11/09/2024 .) Allergies Allergen Reactions Vnubbih-Fqs-Cko Reductase Inhibitors Muscle cramps ROS Negative aside [...] Kristy Parker MD documented in this encounter [facility] 11-09-2024 Instructions Yesenia Mcdaniel MA - 11/09/2024 10:32 AM EST How to contact your Care Team: Provider: MD Georgia Ludwig, TRISTAN Almonte, DOMINICK Clark Nurse: Chastity Rubio RN To reschedule office appointments call Scheduling [phone] In case of an emergency please call 911. When in need of refills please call the phone number listed above. Please include medication name, pharmacy name and specify 30 or 90 day supply Please check with your pharmacy within 24 hours of your request for refill. You must follow up as directed to continue current refills. Thank you! documented in this encounter [facility] 11-07-2024 Note Enoc Fernandes [phone] @[email or web address]@ Brock Groves MD 11/07/24 Room/bed info [...] right heart failure which required admission to [facility] for hypertensive emergency and acute flash pulmonary [...] artery stenosis - CHF (congestive heart failure) ([facility]) - CKD (chronic kidney disease) stage 4, GFR 15-29 ml/min ([facility]) - Diabetes mellitus type 1 ([facility]) - Emphysema lung ([facility]) - Hypercholesterolemia - Hypertension - Kidney stone 2006 Lithotripsy - Normocytic anemia - PAD (peripheral artery disease) ([facility]) - Pneumonia - Polyneuropathy - Spinal stenosis, lumbar - 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 Allergies Allergen Reactions Kcjcdnt-Qsh-Pgs Reductase Inhibitors Muscle cramps Family History Problem [...] Resource Strain: Low Risk (10/11/2023) [facility] Overall Financial Resource Strain (CARDIA) Difficulty of [...] This Visit None documented in this encounter [facility] 10-28-2024 Progress note Formatting of t his note might be different from the original. Patient blood sugar at 1:27pm measured 288. Blood sugar at this time measured 321. [facility] ordered to give 8 units of lispro at this time and to instruct patient to recheck blood sugar in a couple hours at home. Patient IV removed and discharge education provided at this time. Patient understands and verbalizes he will check blood sugar when home and to follow medication regimen after discharge [facility] 10-28-2024 Miscellaneous Notes Patient blood sugar at 1:27pm measured 288. Blood sugar at this time measured 321. [facility] ordered to give 8 units of lispro [...] but appreciative with provided care. Bed alarm restoration officer light in reach. Problem: Actual or potential [...] requested per protocol with elevated glucose. Dr Silvre states that abg not needed to start [...] and elevated glucose. documented in this encounter [facility] 10-28-2024 Note HMS DISCHARGE SUMMAR Y -- [facility] Enoc Fernandes Admitted: 10/27/2024 Discharge Date: 10/28/24 PCP Handoff Recommended Outpatient Testing none Results Pending At Discharge none Clinical Summary Enoc Fernandes is a 78 y.o. male patient of Ryley Jeter MD with history of coronary artery disease, type 1 diabetes, diastolic CHF, hypertension dyslipidemia COPD and lumbar spinal stenosis with chronic low back pain presented to [facility] on 10/27/2024 for an elective left heart [...] . Quantity: 90 tablet OXYGEN-AIR DELIVERY SYSTEMS [facility] Inhale 2 L/min See Admin Instructions . [...] . Physician(s) Follow Up: Brock Groves MD [facility] [id number] Follow up on 11/07/2024 Consultation for surgivcal [...] AUTHENTICATED BY NIDIA GARAY, ON 10/28/2024 14:19:41 [facility] 10-28-2024 Hospital course Narrative [facility] DISCHARGE SUMMARY -- [facility] Enoc Fernandes Admitted: 10/27/2024 Discharge Date: 10/28/24 PCP Handoff Recommended Outpatient Testing none Results Pending At Discharge none Clinical Summary Enoc Fernandes is a 78 y.o. male patient of Ryley Jeter MD with history of coronary artery disease, type 1 diabetes, diastolic CHF, hypertension dyslipidemia COPD and lumbar spinal stenosis with chronic low back pain presented to [facility] on 10/27/2024 for an elective left heart [...] . Physician(s) Follow Up: Brock Groves MD [address] [place] [id number] Follow up on 11/07/2024 Consultation for surgivcal [...] 10/28/24, 2:16 PM documented in this encounter [facility] 10-28-2024 Note Daily Progress Note Assessment/Plan: Principal [...] AUTHENTICATED BY ZOILA SALAZAR, ON 10/28/2024 14:16:31 [facility] 10-28-2024 History of Present illness Narrative Daily [...] today, Discussed with hospitalist, Dr. Chaim Garay.. [facility] PROGRESS NOTE Assessment and Plan Eonc Fernandes is a 78 y.o. male patient of Ryley Jeter MD with history of coronary artery disease, type 1 diabetes, diastolic CHF, hypertension dyslipidemia COPD and lumbar spinal stenosis with chronic low back pain presented to [facility] on 10/27/2024 for an elective left heart [...] mood and affect documented in this encounter [facility] 10-28-2024 Note HMS PROGRESS NOTE Assessment and Plan Enoc Fernandes is a 78 y.o. male patient of Ryley Jeter MD with history of coronary artery disease, type 1 diabetes, diastolic CHF, hypertension dyslipidemia COPD and lumbar spinal stenosis with chronic low back pain presented to [facility] on 10/27/2024 for an elective left heart [...] AUTHENTICATED BY NIDIA GARAY ON 10/28/2024 11:43:31 [facility] 10-28-2024 Plan of care note Problem: Actual or potential alteration in health Goal: Absence of healthcare acquired conditions Outcome: Partially Met Goal: Knowledge of Interdisciplinary Plan of Care Outcome: Partially Met Goal: Knowledge of Enviroment Outcome: Partially Met Problem: Pressure Injury, Risk of Goal: Absence of pressure injury Outcome: Partially Met [facility] 10-28-2024 Progress note Formatting of t his note might be different from the original. Patient stands at edge of bed to void and request to go to restroom. Patient does not want bedrest orders that are in place at this time. Patient is anxious for dc to home but appreciative with provided care. Bed alarm restoration officer light in reach. [facility] 10-28-2024 Plan of care note Problem: Actual [...] continue to monitor and report any concerns. [facility] 10-27-2024 Progress note Formatting of t his [...] drip infusing and started at 6.6 units/hr. [facility] 10-27-2024 Progress note Formatting of t his [...] excluding ice chips and sips with meds [facility] 10-27-2024 Progress note Formatting of t his note might be different from the original. This RN received report from observation unit nurse via phone. [facility] 10-27-2024 Plan of care note Problem: Actual or potential alteration in health Goal: Absence of healthcare acquired conditions Outcome: Partially Met Goal: Knowledge of Interdisciplinary Plan of Care Outcome: Partially Met Goal: Knowledge of Enviroment Outcome: Partially Met [facility] 10-27-2024 History and physical note [facility] HISTORY AND PHYSICAL -- [facility] Patient Name: Enoc Fernandes : 1945 MR #: [id number] Admit Date: 10/27/2024 Physicians: Ryley Jeter MD (Family); No ref. provider found (Referring) Enoc Fernandes is a 78 y.o. male patient of Ryley Jeter MD with history of coronary artery disease, type 1 diabetes, diastolic CHF, hypertension dyslipidemia COPD and lumbar spinal stenosis with chronic low back pain presented to [facility] on 10/27/2024 for an elective left heart [...] and hyperglycemia History of Present Illness Enoc Fernandse is a 78 y.o. male patient of Ryley Jeter MD with history of coronary artery disease, type 1 diabetes, diastolic CHF, hypertension dyslipidemia COPD and lumbar spinal stenosis with chronic low back pain presented to [facility] on 10/27/2024 for an elective left heart [...] Information I have reviewed the patient's allergies. Losmpgh-lou-qxc reductase inhibitors Home Medications Home medications were [...] normal coloration Psych: normal mood and affect [facility] 10-27-2024 Note HMS HISTORY AND PHYS ICAL -- [facility] Patient Name: Enoc Fernandes : 1945 MR #: [id number] Admit Date: 10/27/2024 Physicians: Ryley Jeter MD (Family); No ref. provider found (Referring) Enoc Fernandes is a 78 y.o. male patient of Ryley Jeter MD with history of coronary artery disease, type 1 diabetes, diastolic CHF, hypertension dyslipidemia COPD and lumbar spinal stenosis with chronic low back pain presented to [facility] on 10/27/2024 for an elective left heart [...] with chronic low back pain presented to [facility] on 10/27/2024 for an elective left heart [...] Information I have reviewed the patient's allergies. Ekiynyp-kse-nes reductase inhibitors Home Medications Home medications were [...] normal coloration Psych: (more content not included)... [facility] 10-27-2024 History and physical note [facility] HISTORY AND PHYSICAL -- [facility] Patient Name: Enoc Fernandes : 1945 MR #: [id number] Admit Date: 10/27/2024 Physicians: Ryley Jeter MD (Family); No ref. provider found (Referring) Enoc Fernandes is a 78 y.o. male patient of Ryley Jeter MD with history of coronary artery disease, type 1 diabetes, diastolic CHF, hypertension dyslipidemia COPD and lumbar spinal stenosis with chronic low back pain presented to [facility] on 10/27/2024 for an elective left heart [...] with chronic low back pain presented to [facility] on 10/27/2024 for an elective left heart [...] Information I have reviewed the patient's allergies. Ljfiepq-ofb-ekv reductase inhibitors Home Medications Home medications were [...] Enoc Fernandes Admit Date: 12261205 MR #: [id number] : 1945 The H&P has been reviewed [...] need for emergency surgery, need for pacemaker, FL, stroke, or cardiac arrest/. Patient voiced understanding and agreed to proceed. Sedation Plan: Moderate ASA Classification: ASA 3: A patient with severe systemic disease. Mallampati Score: Class III: Only the soft palate is visible Elías Rodriguez MD 10/27/2024 8:17 AM Source Note - Woo Grigsby MD - 10/18/2024 1:20 PM EST General Cardiology New Patient Clinic Consult [facility], Heart & Vascular 10/18/2024 Woo Grigsby MD [address] [place] [address], 3rd Floor Medical Office [facility] [address] Patient: Enoc Fernandes Date of : [...] No follow-ups on file. Woo Grigsby MD, [facility] Non-Invasive Cardiology [facility] Vascular Physician Group P:[phone] F:[phone] History of Present Illness: Enoc Fernandes is a 78 y.o. man with a past medical history of insulin-dependent diabetes for 30 years, history of tobacco use, recent COVID infection with systolic dysfunction ejection fraction ranging from 35 to 45% who presented initially to [facility]. He underwent stress testing which showed inferior wall abnormality as well as ejection fraction of 50%. I initially met with him back in January and he was doing quite well, however today he presents with progressive symptoms of fatigue, malaise, and a recent heart failure exacerbation at [facility] for hypertensive emergency and acute flash pulmonary [...] Cigarettes Smokeless Tobacco Never Allergies: Prednisone and Zmfamqg-twq-huo reductase inhibitors All of the information has [...] 50%, rest LVEF 51%. Echocardiogram reviewed from [facility], 10/11/2023 moderately decreased ejection fraction estimated [...] suggesting prior/existing ASCVD documented in this encounter [facility] 10-27-2024 Progress note Formatting of t his [...] stage IV kidney disease, BUN/creatinine: 92/2.60 respectively. [facility] 10-27-2024 Progress note Formatting of t his note might be different from the original. Dr Rodriguez notified and at bedside to speak to patient r/g Critical potasium and elevated glucose. [facility] 10-27-2024 Attending History and physical note INTERVAL HISTORY AND PHYSICAL Patient Name: Enoc Fernandes Admit Date: 12261205 MR #: [id number] : 1945 The H&P has been reviewed [...] need for emergency surgery, need for pacemaker, [place], stroke, or cardiac arrest/. Patient voiced understanding and agreed to proceed. Sedation Plan: Moderate ASA Classification: ASA 3: A patient with severe systemic disease. Mallampati Score: Class III: Only the soft palate is visible Elías Rodriguez MD 10/27/2024 8:17 AM Source Note - Woo Grigsby MD - 10/18/2024 1:20 PM EST General Cardiology New Patient Clinic Consult [facility], Heart & Vascular 10/18/2024 Woo Grigsby MD [address] [place] [address] 3rd Floor Medical Office [facility] [phone] Patient: Enoc Fernandes Date of : [...] file. Woo Grigsby MD, FACC Non-Invasive Cardiology [facility] Physician [facility] P:[phone] F:[phone] History of Present Illness: Enoc Fernandes is a 78 y.o. man with a past medical history of insulin-dependent diabetes for 30 years, history of tobacco use, recent COVID infection with systolic dysfunction ejection fraction ranging from 35 to 45% who presented initially to [facility]. He underwent stress testing which showed inferior wall abnormality as well as ejection fraction of 50%. I initially met with him back in January and he was doing quite well, however today he presents with progressive symptoms of fatigue, malaise, and a recent heart failure exacerbation at [facility] for hypertensive emergency and acute flash pulmonary [...] Cigarettes Smokeless Tobacco Never Allergies: Prednisone and Ruqcxvv-nss-plh reductase inhibitors All of the information has [...] 90 tablet, Rfl: 3 OXYGEN-AIR DELIVERY SYSTEMS [facility] Inhale 2 L/min See Admin Instructions ., [...] 50%, rest LVEF 51%. Echocardiogram reviewed from [facility], 10/11/2023 moderately decreased ejection fraction estimated [...] BILITOT 0.7 11/27/2023 The ASCVD Risk score (Tionesta DK, et al., 2019) failed to calculate for the following reasons: The 2019 ASCVD risk score is only valid for ages 40 to 79 Risk score cannot be calculated because patient has a medical history suggesting prior/existing ASCVD [facility] Work Phone: 10-27-2024 Hospital Discharge instructions Sonya King RN - 10/27/2024 8:16 AM EST [facility] Heart & Vascular Physicians Post Cardiac Catheterization Discharge Instructions Site Care Leave Bandage in place the night of your catheterization. Watch for any bleeding or oozing from the site. If this occurs, lie flat and place direct pressure on the bandage for 20 minutes. If bleeding reoccurs call [facility]. For groins, remove your bandage the following [...] shower 24 hours after the procedure. Call [facility] at [phone] if you notice any of the following: [...] need of prescription assistance, please notify the [facility] nurse or call the office. If you were prescribed Plavix (clopidogrel), Effient (prasugrel), or Brilinta (ticagrelar) after your procedure, DO NOT STOP taking this medication unless told to do so by your [facility] fur grader. Follow up appointments, tests or procedures will be on your discharge paperwork under What's next. Please call [facility] at [phone] to reschedule any appointments if needed or if you have any questions or concerns. Thank you! documented in this encounter [facility] 10-18-2024 Instructions Luisa Ealsey RN - 10/18/2024 1:27 PM EST How to Contact your Care Team: Provider: Dr. Woo Grigsby MD Clinic Nurse: Luisa Vega RN Clinic MA: Ej Guidry MA REFILLS: When in need for refills please call your care team or the office at [phone]. Please include medication name, pharmacy name, and specify 30-day or 90-day supply. Please check with your pharmacy within 24 hours of request for your refill. You must follow up as directed to continue current refills. Thank you! Heart Catheterization Date of your procedure: 10/27/2024 at 8:00am Please arrive at [facility]. Please park in the garage next to the medical office building. If needed, plant attendant parking is available at the front entrance [...] questions or concerns please contact us at [phone]. documented in this encounter [facility] 10-18-2024 History of Present illness Narrative General Cardiology New Patient Clinic Consult [facility], Heart & Vascular 10/18/2024 Woo Grigsby MD [address] [place] [address] 3rd Floor Medical Office [facility] [phone] Patient: Enoc Fernandes Date of : [...] No follow-ups on file. Woo Grigsby MD, [facility] Non-Invasive Cardiology [facility] Vascular Physician Group P:[phone] F:[phone] History of Present Illness: Enoc Fernandes is a 78 y.o. man with a past medical history of insulin-dependent diabetes for 30 years, history of tobacco use, recent COVID infection with systolic dysfunction ejection fraction ranging from 35 to 45% who presented initially to [facility]. He underwent stress testing which showed inferior wall abnormality as well as ejection fraction of 50%. I initially met with him back in January and he was doing quite well, however today he presents with progressive symptoms of fatigue, malaise, and a recent heart failure exacerbation at [facility] for hypertensive emergency and acute flash pulmonary [...] Cigarettes Smokeless Tobacco Never Allergies: Prednisone and Oyedrag-spk-viu reductase inhibitors All of the information has [...] 50%, rest LVEF 51%. Echocardiogram reviewed from [facility], 10/11/2023 moderately decreased ejection fraction estimated [...] suggesting prior/existing ASCVD documented in this encounter [facility] 10-18-2024 Note General Cardiology N ew Patient Clinic Consult [facility], Heart & Vascular 10/18/2024 Woo Grigsby MD [address], 3rd Floor Medical Office Building [facility] [address] Patient: Enoc Fernandes Date of : [...] No follow-ups on file. Woo Grigsby MD, [facility] Non-Invasive Cardiology [facility] P:[phone] F:[phone] ---- History of Present Illness: Enoc Fernandes is a 78 y.o. man with a past medical history of insulin-dependent diabetes for 30 years, history of tobacco use, recent COVID infection with systolic dysfunction ejection fraction ranging from 35 to 45% who presented initially to [facility]. He underwent stress testing which showed inferior wall abnormality as well as ejection fraction of 50%. I initially met with him back in January and he was doing quite well, however today he presents with progressive symptoms of fatigue, malaise, and a recent heart failure exacerbation at [facility] for hypertensive emergency and acute flash pulmonary [...] Cigarettes Smokeless Tobacco Never Allergies: Prednisone and Slagcno-yca-jbr reductase inhibitors All of the information has [...] Take 1 ( (more content not included)... [facility] Ambulatory 10-06-2024 Telephone encounter Note Spoke with pt and reviewed Dr. Grigsby's comments and suggestions. Pt was agreeable to starting Imdur 30mg daily and confirmed appt with Dr. Grigsby on 10/18 at 1:20pm in the [place] location. Pt expressed appreciation and understanding. [facility] 10-06-2024 Telephone encounter Note ----- Message from [...] are involved abnormalities can be difficult to picker and packer Would he be okay coming in the [...] Woo Grigsby MD We received everything from [place] on him-I know we were waiting on this to see about changing things up ----- Message ----- From: Ej Guidry MA Sent: 10/04/2024 2:01 PM EST To: Luisa Easley RN Records from [facility] 10-06-2024 Miscellaneous Notes Spoke with pt and reviewed Dr. Grigsby's comments and suggestions. Pt was agreeable to starting Imdur 30mg daily and confirmed appt with Dr. Grigsby on 10/18 at 1:20pm in the [place] location. Pt expressed appreciation and understanding. ----- [...] are involved abnormalities can be difficult to picker and packer Would he be okay coming in the [...] Woo Grigsby MD We received everything from [place] on him-I know we were waiting on this to see about changing things up ----- Message ----- From: Ej Guidry MA Sent: 10/04/2024 2:01 PM EST To: Luisa Easley RN Records from [facility] documented in this encounter [facility] 09-14-2024 Note [facility] Medical Records Department [address] [place] [address] Discharge Summary 09/14/24 0738 MR#: [id number] Acct: [id number] Name: ENOC FERNANDES Rep #: [id number] : 1945 78 From: Nancy Bhatt MD PCP: Dr. Ryley Jeter MD Status:ADM IN Location: ICU [id number] Providers Date of Admission: 09/12/24 Date of [...] #60 tabs 09/14/24 Physical Exam Narrative GENERAL: Gate Clerk (more content not included)... [facility] 09-12-2024 Note [facility] Medical Records Department [address] [place] [address] History Physical Exam 09/12/24 05 MR#: [id number] Acct: [id number] Name: ENOC FERNANDES Rep #: [id number] : 1945 78 From: Young Koroma MD PCP: Dr. Ryley Jeter MD Status:ADM IN Location: ICU [id number] HPI - General General Date of Admission: [...] edema secondary to hypertension and heart failure. [facility] Medical History Pneumonia COVID Wears glasses Wears [...] AdvReac Other Verified 04/06/24 14:38 (Glucocorticoids) (steroids) Coyjfpj-UHJ-DbU Reductase AdvReac Other Verified 04/06/24 14:38 Inhibitor (Fpzfuki-Hvw-Aaj Reductase Inhibitor) Surgical History Hx of cystoscopy [...] 25 25 Frac (more content not included)... [facility] 08-29-2024 History of Present illness Narrative Subjective [...] 08/29/24 1:12 PM documented in this encounter [facility] Work Phone: 07-21-2024 Note Patient ID: Enoc [...] High flow O2, C-pap, etc. Hospitalized in [facility] with CHF, pleural effusions and elevated troponin. [...] being taken. 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 Eye exam is current. Currently taking: No [...] Mental Status: He (more content not included)... [facility] 07-21-2024 History of Present illness Narrative [...] High flow O2, C-pap, etc. Hospitalized in [facility] with CHF, pleural effusions and elevated troponin. [...] being taken. 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 Eye exam is current. Currently taking: No [...] by mouth daily . OXYGEN-AIR DELIVERY SYSTEMS [facility] Inhale 2 L/min See Admin Instructions . [...] if BG <150 at HS. 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 Had bilat cataract extraction Dr. Lopez. Sees Dr. Browne in [place] every year routinely.Has blurred vision with low [...] Call if BG consistently <70 or >250. [phone] Continue to check blood sugar 3 times [...] 07/21/24 1:21 PM documented in this encounter [facility] 04-24-2024 Instructions Luisa Easley RN - 04/24/2024 10:08 AM EDT How to Contact your Care Team: Provider: Dr. Woo Grigsby MD Clinic Nurse: Luisa Easley RN Clinic MA: Ej Guidry MA REFILLS: When in need for refills please call your care team or the office at [phone]. Please include medication name, pharmacy name, and specify 30-day or 90-day supply. Please check with your pharmacy within 24 hours of request for your refill. You must follow up as directed to continue current refills. Thank you! documented in this encounter [facility] 04-24-2024 History of Present illness Narrative General Cardiology New Patient Clinic Consult [facility], Heart & Vascular 04/24/2024 Woo Grigsby MD [address] [place] [id number] Patient: Enoc Fernandes Date of : 1945 [...] 1 year (around 04/24/2025). Woo Grigsby MD, [facility] Non-Invasive Cardiology [facility] Vascular Physician Group P:[phone] F:[phone] History of Present Illness: Enoc Fernandes is a 78 y.o. man with a past medical history of insulin-dependent diabetes for 30 years, history of tobacco use, recent COVID infection with systolic dysfunction ejection fraction ranging from 35 to 45% who presented initially to [facility]. He underwent stress testing which showed [...] Cigarettes Smokeless Tobacco Never Allergies: Prednisone and Zyywyqq-yzz-wsn reductase inhibitors All of the information has [...] 50%, rest LVEF 51%. Echocardiogram reviewed from [facility], 10/11/2023 moderately decreased ejection fraction estimated [...] to 77 The patient has a prior [place] or stroke diagnosis documented in this encounter [facility] 04-24-2024 Note General Cardiology N ew Patient Clinic Consult [facility], Heart & Vascular 04/24/2024 Woo Grigsby MD [address] [place] [address] [place] [address] Patient: Enoc Fernandes Date of : 1945 [...] 1 year (around 04/24/2025). Woo Grigsby MD, [facility] Non-Invasive Cardiology [facility] Physician [facility] P:[phone] F:[phone] ---- History of Present Illness: Enoc Fernandes is a 78 y.o. man with a past medical history of insulin-dependent diabetes for 30 years, history of tobacco use, recent COVID infection with systolic dysfunction ejection fraction ranging from 35 to 45% who presented initially to [facility]. He underwent stress testing which showed [...] Cigarettes Smokeless Tobacco Never Allergies: Prednisone and Vyxxwwz-kzo-xqq reductase inhibitors All of the information has [...] taking differently: T (more content not included)... [facility] 03-28-2024 Telephone encounter Note Pt was last seen on 01/14/24 by Aylin Lacy CNP. Refills appropriate. Routing to Dr. Garay as Dr. Grigsby is out of the office. [facility] 03-28-2024 Miscellaneous Notes Pt was last seen on 01/14/24 by Aylin Lacy CNP. Refills appropriate. Routing to Dr. Garay as Dr. Grigsby is out of the office. documented in this encounter [facility] 02-24-2024 Evaluation + Plan note Associated Problem(s): CKD (chronic kidney disease) Creatinine is stable at 1.92 and stable, stage IIIb, blood pressure is well controlled, diabetes well controlled, not using NSAIDs. [facility] Work Phone: 02-24-2024 Miscellaneous Notes Associated Problem(s): [...] metoprolol, no changes documented in this encounter [facility] Work Phone: 02-24-2024 Evaluation + Plan note Associated Problem(s): Type 1 diabetes mellitus with diabetic neuropathy (Multi) Follows with endocrinology, is not to use SGLT2 due to Type I diabetes [facility] Work Phone: 02-24-2024 Evaluation + Plan note Associated Problem(s): Essential hypertension BP is well controlled on lisinopril and metoprolol, no changes [facility] Work Phone: 02-24-2024 History of Present illness [...] 02/24/24 1:50 PM documented in this encounter [facility] Work Phone: 02-18-2024 History of Present illness [...] He denies nephropathy or retinopathy. Hospitalized with COVDE-19 in November 2023, had difficulty breathing, ICU stay requiring High flow O2, C-pap, etc. Hospitalized in [facility] with CHF, pleural effusions and elevated troponin. [...] being taken. 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 Eye exam is current. Currently taking: No [...] if BG <150 at HS. 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 Had bilat cataract extraction Dr. Lopez. Sees Dr. Browne in [place] every year routinely.Has blurred vision with low [...] Call if BG consistently <70 or >250. [phone] Continue to check blood sugar 3 times [...] 02/18/24 1:21 PM documented in this encounter [facility] 01-14-2024 Instructions Robert Dominguez RN - 01/14/2024 11:46 AM EDT How to Contact your Care Team: Provider: Dr. Woo Grigsby MD Clinic Nurse: Luisa Easley RN REFILLS: When in need for refills please call your care team or the office at [phone]. Please include medication name, pharmacy name, and specify 30-day or 90-day supply. Please check with your pharmacy within 24 hours of request for your refill. You must follow up as directed to continue current refills. Thank you! documented in this encounter [facility] 01-14-2024 History of Present illness Narrative General Cardiology Returning Patient Clinic Visit [facility], Heart & Vascular 01/14/2024 Aylin Lacy, ROSS LIFT OPERATOR [address] [facility] Medical Office [facility] [phone] Patient: Enoc Fernandes Date of : 1945 (78 y.o.) Filling Machine Operator: Dr. Grigsby PCP: Ryley Jeter MD Chief Complaint: Transitional care appointment Date of Service: 01/14/2024 Assessment and Plan: Systolic dysfunction with recovery of ejection fraction -Euvolemic on exam -Continue lisinopril 5 mg daily -Continue metoprolol succinate 25 mg daily -Continue Lasix 20 mg twice daily -He is following with nephrology in [place]. He has an upcoming appointment and labs [...] Next scheduled follow up. Aylin Lacy, MSN, BOILER PLANT WORKER, PARLOR CHAPERONE-C, MORTAR MAN, ECG-BC General Cardiology [facility] Physician [facility] History of Present Illness: Enoc Fernandes is a 78 y.o. man with a past medical history of hypertension, hyperlipidemia, insulin-dependent diabetes mellitus, CKD, smoker, emphysema, chronic hypoxemia and systolic dysfunction. He presents today for transitional care appointment. He was last seen in our office on 10/21/2023 by his primary fur grader Dr. Grigsby. Recent COVID infection at the end of last year and patient was noted to have systolic dysfunction with a ejection fraction ranging from 35 to 45%. He had left ventricular recovery noted on most recent echocardiogram from 11/30/2023, LVEF 63%. He presented to the [facility] on 11/27/2023 with complaints of respiratory distress. [...] 25.50 Types: Cigarettes Smokeless Tobacco Never Allergies: Jkylnlx-sjj-tjm reductase inhibitors All of the above information [...] 15 mL, Rfl: 11 OXYGEN-AIR DELIVERY SYSTEMS [facility] Inhale 2 L/min See Admin Instructions ., [...] to 77 The patient has a prior [place] or stroke diagnosis documented in this encounter [facility] 12-29-2023 Telephone encounter Note Pt's called in asking if pt needs to continue the lasix from [facility] if so he needs a refill. Per the note on 12/01/23 per Ellie Aguilar CNP: IV Lasix 20 mg BID, can transition to orals on discharge. Pt has an appt on 01-14-24 with Aylin HUDSON. Pended medication to Dr. Grigsby for her to sign. [facility] 12-29-2023 Miscellaneous Notes Pt's called in asking [...] her to sign. documented in this encounter [facility] 12-01-2023 Miscellaneous Notes [id number]-GA-YBXF ENCOUNTER FOR HOME MEDICAL EQUIPMENT PATIENT: Enoc Fernandes : 1945 Statement of Care: I certify that Enoc Fernandes is under my care and that I, a Nurse Practitioner, Physician's Inspector Eyeglass Frames, or Resident working with me, had a udzz-vb-ivth encounter with this patient yesterday to evaluate and discuss the need for home medical equipment. I certify that based on the findings of this evaluation, which included but was not limited to the wsaq-gb-togl requirements, the following home medical equipment is [...] no longer in ICU bed. On 2lpm SD. Critical care will sign off. Query 2 [...] Thank you, Aubree CRAWFORD RN Clinical Documentation word processing operator After business hours you may contact Ebony Anne at [phone] (Weekdays until 10 PM and weekends 8 AM -10 PM) Noted 11/27 [facility] documentation of heart failure. Clinical Indicators: 11/27 [facility]: CHF....-Continue IV Lasix, check I's and [...] crackles at base Test results: 11/27: BNP: 63193 Please specify the acuity and type of heart failure in the progress notes. For Example: Acute on chronic systolic CHF POA Chronic systolic CHF, no acute exacerbation Other (please specify) Thank you, Aubree CRAWFORD,FIDEL Clinical Documentation Mule Tender After business hours you may contact Ebony Anne at [phone] (Weekdays until 10 PM and weekends 8 [...] currently. Priscilla Aranda RDN, LD Dietitian's Office [phone] Critical Glucose from [facility] reported to Norma Geiger CNP Alice, provided with updates of transfer to room 3047 from 3039. Informed that patient is on BIPAP for respiratory deficits and on Heparin drip, treating high blood sugar. Appreciative with updates and states will visit around 8 am. Denies further questions at this time. THC Physician - Brief Progress Note PERMANENT 11/27/2023 04:43 [facility] CCU ENOC FERNANDES Date of Service [...] Patient placed on bipap and Norma Geiger PRINTED CIRCUIT BOARD PREASSEMBLER notified. Patient was then transferred to MICU Patient c/o SOB. Repositioned up in bed with Assist of psa. O2 increased from 2 LNC to 4 LNC. Called Karla p RT due to o2 sats 87- 90 % on 4 Lnc.and informed that patient c/o SOB. Karla RT immediately came to room and replaced on bipap. PRINTED CIRCUIT BOARD PREASSEMBLER came to see patient and request patient [...] Informed RT that patient has arrived from [facility]. Attempt to let dr Pe[facility] aware [facility] no answer will leave message. documented in this encounter [facility] 12-01-2023 Hospital course Narrative [facility] DISCHARGE SUMMARY -- [facility] Enoc Fernandes Admitted: 11/27/2023 Discharge Date: 12/01/23 PCP Handoff Recommended Outpatient Testing None Results Pending At Discharge None Clinical Summary Enoc Fernandes is a 77 y.o. male patient of Ryley Jeter MD with history of HTN, HLD, DM Type I, CKD, COPD, chronic hypoxemic respiratory failure who presented to [facility] with respiratory distress . Severe Sepsis Present [...] Ryley Jeter MD [address] [facility] [id number] Follow up Please call to schedule a [...] 12/01/23, 11:10 AM documented in this encounter [facility] 12-01-2023 History of Present illness Narrative Physical [...] Static: Supervision, without UE support, with device Heel Wheeler - Standing Static: wheeled walker Loss of Balance- Standing Static: (none) Standing Balance - Dynamic: Stand by assist Heel Wheeler - Standing Dynamic: wheeled walker Loss of Balance- Standing Dynamic: (none) Bed Mobility Supine to Sit: Contact guard assist, Head of bed elevated Heel Wheeler: (none) Skilled Intervention Provided: verbal cues, monitoring patient response with activity, environmental setup/modification, facilitation, provided step by step instructions For: efficient movement, safety during functional tasks, sequencing of movement Resulting in: improved activity tolerance, improved functional independence, improved performance, improved safety, increased upright tolerance for functional tasks Transfers Sit to Stand: Stand by assist Heel Wheeler: BUE, wheeled walker Additional Transfer Trial 2: Yes Sit to Stand Trial 2: Stand by assist Heel Wheeler Trial 2: wheeled walker, BUE Skilled Intervention [...] to decrease fall risk. [facility] [...] O2;) Prior Level of Function Level of Fleming - Transfers/Ambulation/Mobility: Independent with functional transfers, Independent with household ambulation, Independent with community ambulation (no AD for in home ambulation, intermitant use of cane in community for longer distances) Level of Fleming - ADLs: Independent Level of Fleming - Homemaking: ( takes care of all [...] Enoc Fernandes Admit Date: 11/27/2023 MR #: [id number] : 1945 Current location: [facility] Physicians: Ryley Jeter MD (Family); Britton Geiger [...] NST in a week, spoke with his fur grader Dr. Grigsby, who will arrange to have [...] CHF, hypertension, hyperlipidemia, emphysema who presented to [facility] emergency department with a complaint of [...] T CO2 17. He was transferred to [facility] for further evaluation and treatment. [...] platelet count 220,000 Allergies: Allergies Allergen Reactions Zmcvwre-Etd-Xtb Reductase Inhibitors Muscle cramps Home Medications: Outpatient [...] Enoc Fernandes Admit Date: 1261205 MR #: [id number] : 1945 Physicians: Ryley Jeter MD (Family); Ger Aguilera DO (Referring) Assessment: Patient with 1. Respiratory failure 2. Suspicion for pneumonia 3. Possible congestive heart failure 4. Non-ST elevation FL. 5. History of COVID-19 infection. Plan: Continue patient on current therapy Continue patient on IV azithromycin Continue on ceftriaxone From [facility] 5 weeks ago patient was status post [...] the patient is stable. Previous x-ray at [facility] had shown congestive changes and edema on [...] 97.9 F (36.6 C) SpO2: 94% Allergies: Vnyszuu-zvi-wez reductase inhibitors Medications Reviewed. Current Facility-Administered Medications: [...] excoriations Musculoskeletal: No joint swelling, non tender CASH POSTING SPECIALIST: Awake, and Ox3 Wound: No Henley Catheter: [...] Bilateral infrahilar patchy opacities, concerning for pneumonia. [employer] [place] Workstation ID: [id number] Laboratory and Additional Data [...] meaning can be extrapolated by contextual derivation. [facility] PROGRESS NOTE Assessment and Plan Enoc Fernandes is a 77 y.o. male patient of Ryley Jeter MD with history of HTN, HLD, DM Type I, CKD, COPD, chronic hypoxemic respiratory failure who presented to [facility] with respiratory distress . Severe Sepsis Present [...] treatment for pneumonia and CHF Discharge Location: [facility] Quality Measures DVT Prophylaxis:scd Henley Catheter: present [...] Enoc Fernandes Admit Date: 1261205 MR #: [id number] : 1945 Physicians: Ryley Jeter MD (Family); Ger Aguilera DO (Referring) Assessment: Patient with 1. Respiratory failure 2. Suspicion for pneumonia 3. Possible congestive heart failure 4. Non-ST elevation FL. 5. History of COVID-19 infection. Plan: Continue patient on current therapy Continue patient on IV azithromycin Continue on ceftriaxone From [facility] 5 weeks ago patient was status post [...] the patient is stable. Previous x-ray at [facility] had shown congestive changes and edema on [...] 97.7 F (36.5 C) SpO2: 97% Allergies: Tbzeoms-yss-zpp reductase inhibitors Medications Reviewed. Current Facility-Administered Medications: [...] excoriations Musculoskeletal: No joint swelling, non tender CASH POSTING SPECIALIST: Awake, and Ox3 Wound: No Henley Catheter: [...] Bilateral infrahilar patchy opacities, concerning for pneumonia. [facility]/s Workstation ID: [id number] Echocardiogram complete (Results [...] Enoc Fernandes Admit Date: 11/27/2023 MR #: [id number] : 1945 Current location: [facility] Physicians: Ryley Jeter MD (Family); Britton Geiger [...] CHF, hypertension, hyperlipidemia, emphysema who presented to [facility] emergency department with a complaint of [...] T CO2 17. He was transferred to [facility] for further evaluation and treatment. [...] platelet count 220,000 Allergies: Allergies Allergen Reactions Rytefcx-Oob-Zdo Reductase Inhibitors Muscle cramps Home Medications: Outpatient [...] sodium chloride (PF) 5 mL Intravenous Q8H [facility] acetaminophen, dextrose, ipratropium-albuteroL, [COMPLETED] Insert Indwelling Urethral [...] Enoc Fernandes Admit Date: 1261205 MR #: [id number] : 1945 Physicians: Ryley Jeter MD (Family); Ger Aguilera DO (Referring) Assessment: Patient with 1. Respiratory failure 2. Suspicion for pneumonia 3. Possible congestive heart failure 4. Non-ST elevation FL. 5. History of COVID-19 infection. Plan: Continue patient on current therapy Continue patient on IV azithromycin Continue on ceftriaxone From [facility] 5 weeks ago patient was status post [...] the patient is stable. Previous x-ray at [facility] had shown congestive changes and edema on [...] 97.9 F (36.6 C) SpO2: 97% Allergies: Zuxamwx-hpv-uag reductase inhibitors Medications Reviewed. Current Facility-Administered Medications: [...] 10 mg, 10 mg, Oral, Daily, Norma Gegier CNP, 10 mg at 11/29/23 0749 furosemide [...] excoriations Musculoskeletal: No joint swelling, non tender CASH POSTING SPECIALIST: Awake, and Ox3 Wound: No Henley Catheter: None IV Access: yes I reviewed Medications. I reviewed Labs. XR Chest 1 View Final Result Bilateral infrahilar patchy opacities, concerning for pneumonia. [employer] Workstation ID: [id number] Echocardiogram complete (Results Pending) [...] meaning can be extrapolated by contextual derivation. [facility] PROGRESS NOTE Assessment and Plan Enoc Fernandes is a 77 y.o. male patient of Ryley Jeter MD with history of HTN, HLD, DM Type I, CKD, COPD, chronic hypoxemic respiratory failure who presented to [facility] with respiratory distress . Severe Sepsis Present [...] Enoc Fernandes Admit Date: 11/27/2023 MR #: [id number] : 1945 Current location: [facility] Physicians: Ryley Jeter MD (Family); Britton Geiger [...] CHF, hypertension, hyperlipidemia, emphysema who presented to [facility] emergency department with a complaint of [...] T CO2 17. He was transferred to [facility] for further evaluation and treatment. [...] platelet count 220,000 Allergies: Allergies Allergen Reactions Ezergvg-Vkn-Dle Reductase Inhibitors Muscle cramps Home Medications: Outpatient [...] General Cardiology Inpatient Follow-up Heart & Vascular [facility] 11/28/2023 Iraiad Alvarado, [facility] Patient: Enoc E Fernandes Date of : [...] - EKG showed SR suggest previous anterior FL, minor ST depression laterally similar to 10/11/2023 [...] is orient x 3. Telemetry: SR Allergies: Yzbzqwl-jmq-vgl reductase inhibitors Review of Systems: The following [...] in Direct Patient Care: 15 Narrative: This sales attendant building materials visited the pt., Enoc, while rounding. Introduced [...] of his children and grandchildren. 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 This sales attendant building materials helped the pt explore their feelings about their hospitalization and identify sources of support. This sales attendant building materials provided information about Pastoral Care services and how to contact a sales attendant building materials. Pastoral Care team will remain available to support patient and family PRN. 11/28/23 1116 Visit Background Visit With Patient Visit By Staff Chocolate Molder Visit Progression Introduction Visit Requested By Chocolate Molder Initiated Visit Source Chocolate Molder Initiated Visit Type Inpatient;Rounding Visit Circumstances and Events Routine Visit Visit Length (minutes) 15 Patient's Response to Pastoral Care Appeared to be well-engaged;Expressed Gratitude for Visit Visit Planning PRN;Pt aware to contact Chocolate Molder as needed Spiritual Assessment Assessed during this visit Religion Assessment Not assessed during this visit Family [...] Facilitated Interventions Active Listening;Explained Role of the Chocolate Molder;Explored thoughts/feelings associated with current hospitalization;Relationships Spiritual/Emotional Outcomes Appreciative;Gratitude Spiritual Plan of Care Continue Healing Process;Receive Spiritual Support Signature: Kalani Claros MDiv Staff Chocolate Molder [facility] 24hr On-Call /Adriana On-Call Chocolate Molder She/Her/Hers [facility] PROGRESS NOTE Assessment and Plan Enoc Fernandes is a 77 y.o. male patient of Ryley Jeter MD with history of HTN, HLD, DM Type I, CKD, COPD, chronic hypoxemic respiratory failure who presented to [facility] with respiratory distress . Severe Sepsis Present [...] Enoc Fernandes Admit Date: 1261205 MR #: [id number] : 1945 Physicians: Ryley Jeter MD (Family); Ger Aguilera DO (Referring) Assessment: Patient with 1. Respiratory failure 2. Suspicion for pneumonia 3. Possible congestive heart failure 4. Non-ST elevation FL. 5. History of COVID-19 infection. Plan: Continue patient on current therapy Continue patient on IV azithromycin Continue on ceftriaxone From [facility] 5 weeks ago patient was status post [...] the patient is stable. Previous x-ray at [facility] had shown congestive changes and edema on [...] 97.7 F (36.5 C) SpO2: 97% Allergies: Mmrppgg-jpi-kpe reductase inhibitors Medications Reviewed. Current Facility-Administered Medications: [...] excoriations Musculoskeletal: No joint swelling, non tender CASH POSTING SPECIALIST: Awake, and Ox3 Wound: No Henley Catheter: [...] Bilateral infrahilar patchy opacities, concerning for pneumonia. [facility]/[employer] [place] Workstation ID: [id number] Echocardiogram complete (Results Pending) [...] Enoc Fernandes Date of : 1945 Site: [facility] Provider: Prashant Cesar MD ASSESSMENT/PLAN: Enoc Fernandes 77 y.o. male transferred last night for resp distress, NSTEMI, hypergllycemia from [facility] Three weeks ago testing positive for Covid and then diagnosed with pneumonia. He has been treated as an outpatient with oral antibiotics. He has been experiencing intermittent midsternal chest pain for the past 3 weeks On arrival to [facility], he was placed on NIPPV with [...] Azithromycin/Ceftriaxone Cardiovascular: Troponin 2361 BNP 16,730 Prior [place] NSTEMI Cardiology consulted Heparin gtt Neuro/Muscular: Alert [...] chloride 0.9% (NS) 0-150 mL/hr Intravenous PRN Noram Geiger CNP [x] Medications reviewed. [x] Labs reviewed. Pertinent findings noted: [x] Radiology reviewed. Pertinent findings noted: [] Pathology reviewed. Pertinent findings noted: Family Update/ Code Status: Full code CTT 33 min Laboratory and Additional Data Reviewed: Reviewed 11/28/23 8:42 AM: Laboratory and Microbiology Patient ID: Patient Name: Enoc Fernandes Admit Date: 11/27/2023 MR #: [id number] : 1945 Current location: [facility] Physicians: Ryley Jeter MD (Family); Britton Geiger [...] CHF, hypertension, hyperlipidemia, emphysema who presented to [facility] emergency department with a complaint of [...] T CO2 17. He was transferred to [facility] for further evaluation and treatment. [...] platelet count 220,000 Allergies: Allergies Allergen Reactions Zzdssjo-Iax-Nia Reductase Inhibitors Muscle cramps Home Medications: Outpatient [...] Enoc Fernandes Date of : 1945 Site: [facility] Provider: Prashant Cesar MD ASSESSMENT/PLAN: Enoc Fernandes 77 y.o. male transferred last night for resp distress, NSTEMI, hypergllycemia from [facility] Three weeks ago testing positive for Covid and then diagnosed with pneumonia. He has been treated as an outpatient with oral antibiotics. He has been experiencing intermittent midsternal chest pain for the past 3 weeks On arrival to [facility], he was placed on NIPPV with [...] 30% Cardiovascular: Troponin 2361 BNP 16,730 Prior [place] NSTEMI Cardiology consulted Heparin gtt Neuro/Muscular: Alert [...] Laboratory and Microbiology documented in this encounter [facility] 11-30-2023 Consult note Associated Order (s): IP [...] Balance - Static: Supervision, without UE support Heel Wheeler - Standing Static: (no device) Standing Balance - Dynamic: Stand by assist, Contact guard assist (without device; sba/ supervision with rollator) Heel Wheeler - Standing Dynamic: (trialed with and without rollator) Loss of Balance- Standing Dynamic: (left path deviation unsteadiness without device; no LOB with use of rollator and gait steadiness much improved.) Bed Mobility Rolling: Modified independent, Head of bed flat Supine to Sit: Modified independent, Head of bed flat Sit to Supine: (NT: pt up in chair post PT session) Heel Wheeler: (none) Transfers Sit to Stand: Stand by assist Bed to Chair: Stand by assist, Contact guard assist (no device) Stand Pivot Transfers: Stand by assist, Contact guard assist (no device) Heel Wheeler: (no AD) Additional Transfer Trial 2: Yes Sit to Stand Trial 2: Stand by assist (from chair with karin ue support) Heel Wheeler Trial 2: BUE Additional Transfer Trial 3: Yes Sit to Stand Trial 3: Stand by assist (from locked rollator seat) Heel Wheeler Trial 3: (locked rollator handles) Gait/Locomotion Gait [...] O2;) Prior Level of Function Level of Fleming - Transfers/Ambulation/Mobility: Independent with functional transfers, Independent with household ambulation, Independent with community ambulation (no AD for in home ambulation, intermitant use of cane in community for longer distances) Level of Fleming - ADLs: Independent Level of Fleming - Homemaking: ( takes care of all [...] at discharge. Pt declined PT services at ct. Pt up in chair post PT session. [...] Oral Daily furosemide 20 mg Intravenous Q12H [facility] insulin glargine 16 Units Subcutaneous Nightly lispro insulin 0-15 Units Subcutaneous at bedtime insulin lispro 0-30 Units Subcutaneous Daily before lunch insulin lispro 0-30 Units Subcutaneous Before dinner [START ON 11/30/2023] insulin lispro 0-30 Units Subcutaneous QAM AC metoprolol succinate 25 mg Oral Daily sodium chloride (PF) 5 mL Intravenous Q8H [facility] Continuous Infusions: heparin infusion (weight based dosing) 16 Units/kg/hr (11/29/23 0616) heparin sodium chloride 0.9 % Estimated Energy Needs Total Energy Estimated Needs: 2284-3377 kcal/d Method for Estimating Needs: 25-30 kcal/kg current wt Total Protein Estimated Needs: 65 g/d Method for Estimating Needs: 1 g/kg current wt Grazyna Obregon RDN, LD, CLC Office Associated Order(s): IP CONSULT TO STENOTYPIST Met with pt for diabetes education. States [...] Questions answered. Associated Order(s): IP CONSULT TO BRONZE PLATER See earlier consult Patient Name: Enoc Fernandes MR #: [id number] : 1945 Physicians: Ryley Jeter MD (Family); [...] COVID-19 infection, and then was admitted in [facility]. At that time he was having respiratory failure, and also was having bilateral infiltrates and was found with echocardiogram with ejection fraction of 35%. At [facility], patient was treated with BiPAP, ceftriaxone, azithromycin, [...] currently [place]. [place] [address], And troponin of 9000. Patient also had [...] Oral Daily furosemide 40 mg Intravenous Q12H [facility] ipratropium-albuteroL 3 mL Inhalation Q4H [facility] metoprolol succinate 25 mg Oral Daily sodium chloride (PF) 5 mL Intravenous Q8H [facility] Allergy Information: I have reviewed the patient's allergies. Ymdxppl-utz-brk reductase inhibitors Review of Systems: Review of [...] Bilateral infrahilar patchy opacities, concerning for pneumonia. [employer] Workstation ID: [id number] Echocardiogram complete (Results Pending) [...] Possible congestive heart failure 4. Non-ST elevation FL. 5. History of COVID-19 infection. Plan. Continue patient on current therapy Patient currently on IV azithromycin Patient on ceftriaxone From [facility] 5 weeks ago patient was status post [...] the patient is stable. Previous x-ray at [facility] had shown congestive changes and edema on [...] Enoc Fernandes Admit Date: 11/27/2023 MR #: [id number] : 1945 Current location: [facility] Physicians: Ryley Jeter MD (Family); Britton Geiger [...] CHF, hypertension, hyperlipidemia, emphysema who presented to [facility] emergency department with a complaint of [...] T CO2 17. He was transferred to [facility] for further evaluation and treatment. [...] platelet count 220,000 Allergies: Allergies Allergen Reactions Weuowyb-Qpi-Gdv Reductase Inhibitors Muscle cramps Home Medications: Outpatient [...] reviewed showed sinus rhythm suggest previous anterior FL minor ST depression laterally similar to 10/11/2023 [...] Fernandes for NSTEMI History of Present Illness: Enco Fernandes is a 77 y.o. male presenting with complaints of dyspnea. He had been over 3 weeks testing positive for COVID and diagnosed with pneumonia been treated with 2 courses of oral antibiotics and steroids. When testing positive initially he was hospitalized at [facility] on BiPAP. Communication is a bit difficult [...] Information: I have reviewed the patient's allergies. Fidsnhc-orb-inu reductase inhibitors Home Medications: Outpatient Medications as [...] by mouth daily . [facility]GEN[facility]AIR [facility]IV[facility] Inhale 2 L/min See Admin Instructions . [...] Enoc Fernandes Admit Date: 1261205 MR #: [id number] : 1945 Physicians: Ryley Jeter MD (Family); Ger Aguilera DO (Referring) Julia Parker MD documented in this encounter [facility] 11-27-2023 History and physical note [facility] HISTORY AND PHYSICAL -- [facility] Patient Name: Enoc Fernandes : 1945 MR #: [id number] Admit Date: 11/27/2023 Physicians: Ryley Jeter MD (Family); eGr Aguilera DO (Referring) Enoc Fernandes is a 77 y.o. male patient of Ryley Jeter MD with history of HTN, HLD, DM Type I, CKD, COPD, chronic hypoxemic respiratory failure who presented to [facility] with respiratory distress . Severe Sepsis Present [...] DKA protocol. Consult endocrinology, DM education, and tablet technician Essential Hypertension Dyslipidemia Continue amlodipine, metoprolol, ezetimibe [...] of Ryley Jeter MD, who presented to [facility] with respiratory distress. The patient states that [...] discomfort with associated diaphoresis. On arrival to [facility], he was placed on NIPPV with [...] Information I have reviewed the patient's allergies. Nmvfmvx-akn-jnd reductase inhibitors Home Medications Home medications were [...] Clifford MD - 11/27/2023 3:27 PM EST [facility] NOTE ADDENDUM I saw and examined the [...] chronic hypoxemic respiratory failure who presented to [facility] with respiratory distress . Physical Examination General [...] -Appreciate ID input documented in this encounter [facility] 11-26-2023 Emergency department Note Associated Order(s): Critical [...] to experience difficulty breathing for 1 hr detective captain. EMS reports an O2 level in [...] ask the patient if he had a fur grader and he said yes. Patient sees Dr. Grigsby at [place] and is scheduled to have a stress test next week. Patient has denied any chest pain his entire time here. I did speak to the fur grader on-call Dr. Parker and she agreed with a dose of IV Lasix and starting the patient on heparin which will be done. Patient is improved at present but we will continue to monitor the patient until a bed becomes available at [place]. The patient has been accepted by the [...] History Past Medical History: Diagnosis Date Diabetes ([facility]) History reviewed. No pertinent surgical history. [...] performed using a different testing methodology at [facility] than at other [facility]. Direct result comparisons should only be made [...] is performed using different testing methodology at [facility] than at other [facility]. Direct result comparisons should only be made [...] performed using a different testing methodology at [facility] than at other [facility]. Direct result comparisons should only be made [...] Ghassan Tovar 11/26/2023 10:02 PM Dictation workstation: [id number] Medical Decision Making Patient will be transferred in stable condition to [facility] in [place]. 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 EMS reports an O2 level in [...] ask the patient if he had a fur grader and he said yes. Patient sees Dr. Grigsby at [place] and is scheduled to have a stress test next week. Patient has denied any chest pain his entire time here. I did speak to the fur grader on-call Dr. Parker and she agreed with a dose of IV Lasix and starting the patient on heparin which will be done. Patient is improved at present but we will continue to monitor the patient until a bed becomes available at [place]. The patient has been accepted by the [...] History Past Medical History: Diagnosis Date Diabetes ([facility]) History reviewed. No pertinent surgical history. [...] performed using a different testing methodology at [facility] than at other [facility]. Direct result comparisons should only be made [...] is performed using different testing methodology at [facility] than at other [facility]. Direct result comparisons should only be made [...] performed using a different testing methodology at [facility] than [facility]. Direct result comparisons should only be made [...] of 11/27/23105 NSTEMI (non-ST elevated myocardial infarction) ([facility]/HCC) MADONNA (acute kidney injury) ([facility]/HCC) Acute combined systolic and diastolic congestive [...] Ghassan Tovar 11/26/2023 10:02 PM Dictation workstation: [id number] Medical Decision Making Patient will be transferred in stable condition to [facility]. Procedure Critical Care Performed by: Ger Aguilera [...] another facility Ger Aguilera DO 11/27/23 0119 [facility] Work Phone: 11-02-2023 History of Present illness Narrative Patient called and reported that he needs Humalog Rx changed due to formulary change. Rx mailed for Admelog Dollyostar 15 ml, 11 refills. CD documented in this encounter [facility] 10-21-2023 History of Present illness Narrative General Cardiology New Patient Clinic Consult [facility] Physician Group, Heart & Vascular 10/21/2023 Woo Grigsby MD [address] [place] [id number] Patient: Enoc Fernandes Date of : [...] 6 months (around 04/21/2024). Woo Grigsby MD, [facility] Non-Invasive Cardiology [facility] Heart and Vascular Physician Group P:[phone] F:[phone] History of Present Illness: Enoc Fernandes is a 77 y.o. man with a past medical history of insulin-dependent diabetes for 30 years, history of tobacco use, recent COVID infection with systolic dysfunction ejection fraction ranging from 35 to 45% who presents today to [facility]. Patient states that he was critically ill and hospitalized at [facility], on BiPAP. Prior to hospitalization patient [...] 25.50 Types: Cigarettes Smokeless Tobacco Never Allergies: Druzaus-xye-rxv reductase inhibitors All of the information has [...] ., Disp: , Rfl: OXYGEN-AIR DELIVERY SYSTEMS [facility] 2 L/min See Admin Instructions ., [...] appropriate conversation Cardiovascular Studies: Echocardiogram reviewed from [facility], 10/11/2023 moderately decreased ejection fraction estimated [...] Cholesterol: 156 mg/dL documented in this encounter [facility] 10-21-2023 Instructions Luisa Easley RN - 10/21/2023 8:54 AM EST How to Contact your Care Team: Provider: Dr. Woo Grigsby MD Clinic Nurse: Luisa Easley RN REFILLS: When in need for refills please call your care team or the office at [phone]. Please include medication name, pharmacy name, and [...] questions please contact your care team or [phone]. documented in this encounter [facility] 10-13-2023 Nurse Note Pt IVs removed intact, home O2 has just been delivered and family given instruction by [employer]. Pt leaving by wheelchair to discharge doors, daughter driving. [facility] 10-13-2023 Nurse Note Pt IVs removed intact, [...] to lean on for stability. , Alice ([phone]), called and requesting and update. Update provided. [...] 112, RR 24. documented in this encounter [facility] Work Phone: 10-13-2023 Nurse Note Discharge instructions reviewed with pt. Printed and verbal education given on covid, chf, and home oxygen use/safety. Pt verbalized understanding of all instructions. Walker rx written by dr rivera. Awaiting home oxygen set up. [facility] 10-13-2023 Hospital Discharge instructions Geni Lynne RN [...] or approved for treating a specific patient. [employer] and its affiliates disclaim any warranty or liability relating to this information or the use thereof. The use of this information is governed by the Terms of Use, available at https://www.SnipSnap.Med Access/en/k now/wjsuvvks-ogvkegpkkqnbs-pncej Copyright 2022 [employer] and its affiliates and/or licensors. All rights [...] or approved for treating a specific patient. [employer] and its affiliates disclaim any warranty or liability relating to this information or the use thereof. The use of this information is governed by the Terms of Use, available at https://www.SnipSnap.com/en/k now/zivwpzsf-rbuiubhrwkbwn-udpkm Copyright 2022 [employer] and its affiliates and/or licensors. All rights [...] Do not take any other prescription drugs, grjo-qgv-gjzpzns (OTC) drugs, herbals, or diet aids without [...] diet are needed? Ask your doctor or tablet technician what diet is best for you. The [...] or approved for treating a specific patient. [employer] and its affiliates disclaim any warranty or liability relating to this information or the use thereof. The use of this information is governed by the Terms of Use, available at https://www.SnipSnap.com/en/k now/czjfpqiy-kwqzrupetyjdy-fadjc Copyright 2022 [employer]. and its affiliates and/or licensors. All rights reserved. documented in this encounter [facility] Work Phone: 10-13-2023 Miscellaneous Notes PATIENT: ENOC FERNANDES : 1945 ADMIT DATE: 10/11/2023 1:08 AM DISCH DATE: RESPONDING PROVIDER #: [id number] PROVIDER RESPONSE TEXT: Sepsis with associated respiratory [...] hypoxia], hypertensive emergency, hyperglycemia, and elevated troponin. Continuing Education Dean consult documents Acute hypoxemic respiratory failure. Treatment: [...] with current management. documented in this encounter [facility] Work Phone: 10-13-2023 Note Formatting of this n ote might be different from the original. PATIENT: ENOC FERNANDES : 1945 ADMIT DATE: 10/11/2023 1:08 AM DISCH DATE: RESPONDING PROVIDER #: [id number] PROVIDER RESPONSE TEXT: Sepsis with associated respiratory [...] hypoxia], hypertensive emergency, hyperglycemia, and elevated troponin. Continuing Education Dean consult documents Acute hypoxemic respiratory failure. Treatment: [...] by: VERA RIVERA MD 10/13/2023 3:05 PM [facility] Work Phone: 10-13-2023 History of [...] Prior Function Per Pt/Caregiver Report Level of Fleming: Independent with ADLs and functional transfers, Independent [...] length Comments/Distance (ft) 1: 88ft Outcome Measures: [facility] Basic Mobility Turning from your back to [...] Bathroom Equipment: None Prior Function: Level of Fleming: Independent with ADLs and functional transfers, Independent [...] Function: Gross Grasp: Functional Coordination: Functional Outcome Measures:[facility] Daily Activity Putting on and taking off [...] He does not currently follow with a Filling Machine Operator. Overnight Events: None Objective Data: Last Recorded [...] result verified on 10/11/2023 0209 on specimen/case [id number] called with component [facility] for procedure Troponin I, High Sensitivity, Initial [...] 13-18 <7.5 7-12 <8.0 0- 6 7.5-8.5 [place] [employer]. Diabetes Care 33(S1), Nov 2009. 02/12/2023 08:57 AM 7.7 % Final Comment: Diagnosis of Diabetes-Adults Non-Diabetic: < or = 5.6% Increased risk for developing diabetes: 5.7-6.4% Diagnostic of diabetes: > or = 6.5% . Monitoring of Diabetes Age (y) Therapeutic Goal (%) Adults: >18 <7.0 Pediatrics: 13-18 <7.5 7-12 <8.0 0- 6 7.5-8.5 [place] [employer]. Diabetes Care 33(S1), Nov 2009. [...] Assessment Information (1): baseline creat 1.6-1.9 per resolution analyst; A1C 7.4 09/27, 7.6 8/l Nutrition Diagnosis [...] result verified on 10/11/2023 0209 on specimen/case [id number] called with component [facility] for procedure Troponin I, High Sensitivity, Initial [...] 13-18 <7.5 7-12 <8.0 0- 6 7.5-8.5 [place] [employer]. Diabetes Care 33(S1), Nov 2009. 02/12/2023 08:57 AM 7.7 % Final Comment: Diagnosis of Diabetes-Adults Non-Diabetic: < or = 5.6% Increased risk for developing diabetes: 5.7-6.4% Diagnostic of diabetes: > or = 6.5% . Monitoring of Diabetes Age (y) Therapeutic Goal (%) Adults: >18 <7.0 Pediatrics: 13-18 <7.5 7-12 <8.0 0- 6 7.5-8.5 [place] [employer]. Diabetes Care 33(S1), Nov 2009. [...] 1.8, arthritis and smoking. Came to ED [facility] on 10/11/2023 complaining of shortness of [...] to discharge. If not possible, should have [facility] as an outpatient. - Due to [...] on 10/11/2023 6:18:47 PM Transthoracic Echo (TTE) [place] [address] [phone], TRANSTHORACIC ECHOCARDIOGRAM REPORT Patient Name: ENOC FERNANDES Reading Physician: [id number] Jose Enrique Molina MD Study Date: 10/11/2023 Ordering Provider: [id number] FUADRADHA SCOTTBC MRN/PID: [id number] Fellow: Nurse: Jana See RN Date of /Age: 2 1945 / 77 years Contact Worker Lithography: Cecilio Gabriel [facility] Gender: M Additional Staff: Height: 170.18 cm Admit Date: Weight: 71.67 kg Admission Status: Inpatient - Routine BSA: 1.83 m2 Department Location: [address]-ICU Blood Pressure: 141 /71 mmHg Study Type: TRANSTHORACIC ECHO (TTE) COMPLETE Diagnosis/ICD: Acute on chronic systolic (congestive) heart failure (CHF)-I50.23 CPT Codes: Echo Complete w Full Doppler-53388 Study Detail: The following Echo studies were [...] LA Area A2C: 16.2 cm2 LA Major [place] A4C: 5.3 cm LA Major [place] A2C: 5.0 cm LA Volume Index: 23.9 ml/m2 LA Vol A4C: 43.7 ml LA Vol A2C: 43.3 ml LV SYSTOLIC FUNCTION BY 2D PLANIMETRY (MOD): Normal Ranges: EF-A4C View: 45.6 % (>=55%) EF-A2C View: 40.9 % EF-Biplane: 44.2 % AORTIC VALVE: Normal Ranges: LVOT Diameter: 1.80 cm (1.8-2.4cm) RIGHT VENTRICLE: RV Basal 3.49 cm RV Mid 2.45 cm RV Major 7.8 cm [id number] Jose Enrique Molina MD Electronically signed on 10/11/2023 at 9:43:19 AM Final XR chest 1 view Narrative: Interpreted By: Kahlil Fagan, STUDY: XR CHEST 1 VIEW; 10/11/2023 1:30 am INDICATION: Signs/Symptoms:Cough. COMPARISON: Chest radiograph 11/04/2012 ACCESSION NUMBER(S): [id number] ORDERING CLINICIAN: AURY ROUSE FINDINGS: SUPPORT DEVICES: [...] Kahlil Fagan 10/11/2023 1:33 AM Dictation workstation: [id number] Physical Exam Constitutional: Appearance: Normal appearance. HENT: [...] on sliding scale insulin. A1c 7.4 appreciate australian rules footballer input. Oxygen as tolerated, currently liters. PT, OT consult for generalized weakness. Vitamin D, zinc DVT prophylaxis on heparin. CODE STATUS full. Disposition in 24 to 48 hours. Total time spent 35 minutes. Vera Rivera MD 10/11/23 7990 Discharge Planning Living Arrangements Spouse/significant other Support [...] place to sleep or slept in a snf (including now)? N Transportation Needs In the [...] Consuelo Fischer BSN/RN-TCC documented in this encounter [facility] Work Phone: 10-13-2023 Hospital course Narrative Discharge [...] Your Medications These medications were sent to [facility] [address] [address] metoprolol succinate XL 25 mg 24 hr tablet These medications were sent to [facility] [address] [place] [address] Hours: 8 AM to 5:30 Mon-Fri, 8 [...] with home oxygen. Patient also was sore australian rules footballer discharged his dexamethasone and antibiotics as cultures seems to be negative. Clinically stable. Patient also had elevated troponin secondary due to above seen by cardiology, Dr. De Dios, started on metoprolol, aspirin initially which which can be changed to 81 mg daily. Jaundice and Zetia also were started. Patient also has seen Dr. Albert, resolution analyst for acute on chronic kidney disease secondary [...] Department Center 02/24/2024 1:45 PM Madie Albert, BOILER PLANT WORKER-ROSS LIFT OPERATOR, [facility] [id number] [facility] Dr. Albert, nephrology in [address] De Dios, cardiology in 2 to 4 weeks. Total discharge time 40 minutes. Vera Rivera MD documented in this encounter [facility] Work Phone: 10-13-2023 Nurse Note Pt is AAO. He is using his call light today when he wants to use the bathroom. He has had loose stools, but less frequent. [facility] Work Phone: 10-12-2023 Nurse Note Pt is alert to situation at this time and able to explain his diagnosis, but still impulsive when moving and unsteady. [facility] Work Phone: 10-12-2023 Nurse Note Pt continues to try and leave the bed and chair without his call light. When asked what he needs or where he wants to go, pt is unable to articulate his motivation except the general desire to move around. Repeated re-education is not working. [facility] Work Phone: 10-12-2023 Nurse Note Answered chair alarm. Pt is becoming increasingly confused and restless in general. He is aware of himself and other people, but is becoming impulsive in getting out of bed or his chair. Pt ambulated to the bathroom, O2 increased to 5L for movement per RT. Pt assisted back to bed, bed alarm activated. [facility] Work Phone: 10-12-2023 Nurse Note Pt is AAO, uses his call light appropriately. Pt currently on RA. Pt c/o weakness in his legs, but is able to sit up at the edge of the bed and walk with a walker to lean on for stability. [facility] Work Phone: 10-12-2023 Plan of care note The patient's goals for the shift include The clinical goals for the shift include Blood sugar will return to normal limits by the end of the shift Over the shift, the patient did not make progress toward the following goals. Barriers to progression include acuteness of illness. Recommendations to address these barriers include repeated re-orientation. [facility] Work Phone: 10-12-2023 Plan of care note The clinical goals for the shift include Blood sugar will return to normal limits by the end of the shift Over the shift, Pt tolerated BIPAP well. No signs of respiratory distress. [facility] 10-11-2023 Consult note Associated Order (s): [...] 1.8, arthritis and smoking. Came to ED [facility] on 10/11/2023 complaining of shortness of [...] result verified on 10/11/2023 0209 on specimen/case [id number] called with component [facility] for procedure Troponin I, High Sensitivity, Initial [...] 13-18 <7.5 7-12 <8.0 0- 6 7.5-8.5 [place] [employer]. Diabetes Care 33(S1), Nov 2009. 02/12/2023 08:57 AM 7.7 (A) % Final Comment: Diagnosis of Diabetes-Adults Non-Diabetic: < or = 5.6% Increased risk for developing diabetes: 5.7-6.4% Diagnostic of diabetes: > or = 6.5% . Monitoring of Diabetes Age (y) Therapeutic Goal (%) Adults: >18 <7.0 Pediatrics: 13-18 <7.5 7-12 <8.0 0- 6 7.5-8.5 [place] [employer]. Diabetes Care 33(S1), Nov 2009. [...] Family history unknown: Yes Allergies: Prednisone and Eafxnbb-orp-yhc reductase inhibitors Inpatient Medications: Scheduled medications Medication [...] 1.8, arthritis and smoking. Came to ED [facility] on 10/11/2023 complaining of shortness of [...] to discharge. If no t possible, have [facility] as an outpatient. - Due to [...] Code Status: Full Code Tyrone Zimmerman MD [facility] Work Phone: 10-11-2023 Consult note Associated Order [...] 1.8, arthritis and smoking. Came to ED [facility] on 10/11/2023 complaining of shortness of [...] result verified on 10/11/2023 0209 on specimen/case [id number] called with component [facility] for procedure Troponin I, High Sensitivity, Initial [...] 13-18 <7.5 7-12 <8.0 0- 6 7.5-8.5 [place] [employer]. Diabetes Care 33(S1)Nov 2009. 02/12/2023 08:57 AM 7.7 (A) % Final Comment: Diagnosis of Diabetes-Adults Non-Diabetic: < or = 5.6% Increased risk for developing diabetes: 5.7-6.4% Diagnostic of diabetes: > or = 6.5% . Monitoring of Diabetes Age (y) Therapeutic Goal (%) Adults: >18 <7.0 Pediatrics: 13-18 <7.5 7-12 <8.0 0- 6 7.5-8.5 [place] [employer]. Diabetes Care 33(S1), Nov 2009. [...] has a past medical history of Diabetes ([facility]). Past Surgical History: He has no past surgical history on file. Social History: He reports that he has been smoking cigarettes. He has never used smokeless tobacco. He reports that he does not drink alcohol and does not use drugs. Family History: Family History Family history unknown: Yes Allergies: Prednisone and Spmaxup-qld-hck reductase inhibitors Inpatient Medications: Scheduled medications Medication [...] 1.8, arthritis and smoking. Came to ED [facility] on 10/11/2023 complaining of shortness of [...] to discharge. If no t possible, have [facility] as an outpatient. - Due to [...] Zimmerman MD Associated Order(s): IP CONSULT TO BRONZE PLATER Reason For Consult Acute respiratory failure History [...] has a past medical history of Diabetes ([facility]). Surgical History He has no past surgical history on file. Social History He reports that he has been smoking cigarettes. He has never used smokeless tobacco. He reports that he does not drink alcohol and does not use drugs. Family History Family History Family history unknown: Yes Allergies Prednisone and Lkrotjw-uyr-eff reductase inhibitors Review of Systems A full [...] Ayanna Albert DO documented in this encounter [facility] Work Phone: 12-11-2023 Consult note Associated Order (s): IP CONSULT TO BRONZE PLATER Reason For Consult Acute respiratory failure History [...] has a past medical history of Diabetes ([facility]). Surgical History He has no past surgical history on file. Social History He reports that he has been smoking cigarettes. He has never used smokeless tobacco. He reports that he does not drink alcohol and does not use drugs. Family History Family History Family history unknown: Yes Allergies Prednisone and Jounqii-lcy-fsa reductase inhibitors Review of Systems A full [...] procedures Principal Problem: COVID-19 Ayanna Albert DO [facility] Work Phone: 10-11-2023 Plan of care note Patient's reviewed. Currently on 5 L of oxygen by nasal cannula, sitting in bed. wants him to be full code with DNI. Continue with current management. [facility] Work Phone: 10-11-2023 Nurse Note , Alice ([phone]), called and requesting and update. Update provided. She is Enoc's POA and requests in the event of cardiac he receive CPR and life sustaining medications. She is unsure if she wants him intubated and wants more time to think about it. She reported she will be visiting Enoc today around 11am. [facility] 10-11-2023 Nurse Note At 0545 pt [...] Patient currently sleeping, HR 112, RR 24. [facility] Work Phone: 10-11-2023 History and physical note [...] Family history unknown: Yes Allergies Prednisone and Vttfjlq-vgl-eha reductase inhibitors Medications Prior to Admission Medication [...] Straw, Yellow Appearance, Urine Clear Clear Specific [place], Urine 1.014 1.005 - 1.035 pH, Urine [...] Signs/Symptoms:Cough. COMPARISON: Chest radiograph 11/04/2012 ACCESSION NUMBER(S): [id number] ORDERING CLINICIAN: AURY ROUSE FINDINGS: SUPPORT DEVICES: [...] Kahlil Fagan 10/11/2023 1:33 AM Dictation workstation: [id number] Assessment/Plan 77-year-old male, smoker, with a past [...] are not fully corrected) Praful Pineda MD [facility] Work Phone: 10-11-2023 History and physical note [...] History Past Medical History: Diagnosis Date Diabetes (CMS/[facility]) Pertinent medical history also documented in [...] Family history unknown: Yes Allergies Prednisone and [place]-oyb-irp reductase inhibitors Medications Prior to Admission Medication [...] Straw, Yellow Appearance, Urine Clear Clear Specific [place], Urine 1.014 1.005 - 1.035 pH, Urine [...] Signs/Symptoms:Cough. COMPARISON: Chest radiograph 11/04/2012 ACCESSION NUMBER(S): [id number] ORDERING CLINICIAN: AURY ROUSE FINDINGS: SUPPORT DEVICES: [...] Kahlil Fagan 10/11/2023 1:33 AM Dictation workstation: [id number] Assessment/Plan 77-year-old male, smoker, with a past [...] Praful Pineda MD documented in this encounter [facility] Work Phone: 10-11-2023 Emergency department Note Associated [...] and establish an IV. Patient admits to 36-lyyf-zpxc history of cigarette use and currently smokes 1 pack/day. Activity makes his symptoms worse rest helps to some extent. History provided by: EMS personnel and patient site interpreter used: No Physical Exam Vitals and nursing note reviewed. Constitutional: General: He is awake. He is in acute distress. Appearance: Normal appearance. He is overweight. He is ill-appearing. HENT: Head: Normocephalic and atraumatic. Right Ear: External ear normal. Decreased hearing noted. Left Ear: External ear normal. Decreased hearing noted. Nose: Congestion and rhinorrhea present. Rhinorrhea is clear. Mouth/Throat: Lips: [place]. Mouth: Mucous membranes are moist. Pharynx: Oropharynx [...] and has been validated for use at [facility]. Negative results do not preclude COVID-19 [...] in ng/mL Fibrinogen Equivalent Units (FEU). Per statue carver's instructions for use, a value of less [...] performed using a different testing methodology at [facility] than at other [facility] hospitals. Direct result comparisons should only [...] performed using a different testing methodology at [facility] than at other [facility]. Direct result comparisons should only be made [...] is performed using different testing methodology at [facility] than at other [facility]. Direct result comparisons should only be made [...] Color, Urine Yellow Appearance, Urine Clear Specific [place], Urine 1.014 pH, Urine 5.0 Protein, Urine [...] and has been validated for use at [facility]. Negative results do not preclude Influenza A/B infections, and should not be used as the sole basis for diagnosis, treatment, or other management decisions. If Influenza A/B and RSV PCR results are negative, testing for Parainfluenza virus, Adenovirus and Metapneumovirus is routinely performed for [facility] pediatric oncology and intensive care inpatients, and is available on other patients by placing an add-on request. RSV PCR - Normal RSV PCR Not Detected Narrative: This assay is an FDA-cleared, in vitro diagnostic nucleic acid amplification test for the detection of RSV from nasopharyngeal specimens, and has been validated for use at [facility]. Negative results do not preclude RSV infections, and should not be used as the sole basis for diagnosis, treatment, or other management decisions. If Influenza A/B and RSV PCR results are negative, testing for Parainfluenza virus, Adenovirus and Metapneumovirus is routinely performed for pediatric oncology and intensive care inpatients at [facility], and is available on other patients by [...] Abnormality Status --------- ------ Urinalysis with Reflex M...[[id number]] Abnormal Final result Extra Urine Dey Tube[[id number]] Final result Please view results for these tests on the individual orders. TROPONIN SERIES- (INITIAL, 1 HR) Narrative: The following orders were created for panel order Troponin I Series, High Sensitivity (0, 1 HR). Procedure Abnormality Status --------- ------ Troponin I, High Sensiti...[[id number]] Abnormal Final result Troponin, High Sensitivi...[[id number]] Abnormal Final result Please view results for [...] Kahlil Fagan 10/11/2023 1:33 AM Dictation workstation: [id number] Critical Care Performed by: Aury Rouse DO [...] waves in the anterior precordial leads. The CA interval is 148 ms. QRS durations 82 [...] help a little. documented in this encounter [facility] Work Phone: 10-11-2023 Emergency department Triage note Pt brought in via EMS for fevers and chills. Pt reports being ill for the last 2-3 days. Pt states that he has been having fevers, chills, weakness, fatigue, headaches, body aches with some SOB. Pt was given a breathing treatment in route and states that it did help a little. [facility] Work Phone: 10-11-2023 Physician Emergency department Note [...] and establish an IV. Patient admits to [id number] history of cigarette use and currently smokes 1 pack/day. Activity makes his symptoms worse rest helps to some extent. History provided by: EMS personnel and patient site interpreter used: No Physical Exam Vitals and nursing note reviewed. Constitutional: General: He is awake. He is in acute distress. Appearance: Normal appearance. He is overweight. He is ill-appearing. HENT: Head: Normocephalic and atraumatic. Right Ear: External ear normal. Decreased hearing noted. Left Ear: External ear normal. Decreased hearing noted. Nose: Congestion and rhinorrhea present. Rhinorrhea is clear. Mouth/Throat: Lips: [place]. Mouth: Mucous membranes are moist. Pharynx: Oropharynx [...] and has been validated for use at [facility]. Negative results do not preclude COVID-19 [...] in ng/mL Fibrinogen Equivalent Units (FEU). Per statue carver's instructions for use, a value of less than 500 ng/mL (FEU) may help to exclude DVT or PE in outpatients when the assay is used with a clinical pretest probability assessment.([facility] must utilize and document eCalc 'Wells Score [...] performed using a different testing methodology at [facility] than at other [facility]. Direct result comparisons should only be made [...] performed using a different testing methodology at [facility] than at other [facility] hospitals. Direct result comparisons should only [...] is performed using different testing methodology at [facility] than at other [facility] hospitals. Direct result comparisons should only [...] Color, Urine Yellow Appearance, Urine Clear Specific [place], Urine 1.014 pH, Urine 5.0 Protein, Urine [...] and has been validated for use at [facility]. Negative results do not preclude Influenza A/B infections, and should not be used as the sole basis for diagnosis, treatment, or other management decisions. If Influenza A/B and RSV PCR results are negative, testing for Parainfluenza virus, Adenovirus and Metapneumovirus is routinely performed for [facility] pediatric oncology and intensive care inpatients, and is available on other patients by placing an add-on request. RSV PCR - Normal RSV PCR Not Detected Narrative: This assay is an FDA-cleared, in vitro diagnostic nucleic acid amplification test for the detection of RSV from nasopharyngeal specimens, and has been validated for use at [facility]. Negative results do not preclude RSV infections, and should not be used as the sole basis for diagnosis, treatment, or other management decisions. If Influenza A/B and RSV PCR results are negative, testing for Parainfluenza virus, Adenovirus and Metapneumovirus is routinely performed for pediatric oncology and intensive care inpatients at [facility], and is available on other patients by [...] Abnormality Status --------- ------ Urinalysis with Reflex M...[[id number]] Abnormal Final result Extra Urine Dey Tube[[id number]] Final result Please view results for these tests on the individual orders. TROPONIN SERIES- (INITIAL, 1 HR) Narrative: The following orders were created for panel order Troponin I Series, High Sensitivity (0, 1 HR). Procedure Abnormality Status --------- ------ Troponin I, High Sensiti...[[id number]] Abnormal Final result Troponin, High Sensitivi...[[id number]] Abnormal Final result Please view results for [...] Kahlil Fagan 10/11/2023 1:33 AM Dictation workstation: [id number] Critical Care Performed by: Aury Rouse DO [...] waves in the anterior precordial leads. The CA interval is 148 ms. QRS durations 82 ms. QTc is 455 ms axis is 39 degrees. Diagnoses as of 10/12/23 0515 COVID-19 Acute respiratory failure with hypoxia (CMS/HCC) Acute congestive heart failure, unspecified heart failure type (CMS/HCC) Pneumonia of both lungs due to infectious organism, unspecified part of lung Aury Rouse DO 10/12/23 0515 [facility] Work Phone: 10-08-2023 History of Present illness [...] being taken. 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 Eye exam is current. Currently taking: No [...] bedside for hypoglycemia at night. 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 Had bilat cataract extraction Dr. Lopez. Sees Dr. Browne in [place] every year routinely.Has blurred vision with low [...] Call if BG consistently <70 or >250. [phone] Continue to check blood sugar 3 times [...] 10/10/23 8:04 PM documented in this encounter [facility] 08-25-2023 Evaluation + Plan note Associated Problem(s): CKD (chronic kidney disease) Doing well with DM HTN well controlled Sees Endocrinology. Has Type 1 DM On Statin Not on nephrotoxins [facility] Work Phone: 08-25-2023 Miscellaneous Notes Associated Problem(s): CKD (chronic kidney disease) Doing well with DM HTN well controlled Sees Endocrinology. Has Type 1 DM On Statin Not on nephrotoxins documented in this encounter [facility] Work Phone: 08-25-2023 History of Present illness [...] Dyslipidemia Nicotine Abuse documented in this encounter [facility] Work Phone: 02-19-2023 History of Present illness [...] being taken. 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 Eye exam is current. Currently taking: No [...] at HS. PLAN: See below. 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 Had bilat cataract extraction Dr. Lopez. Sees Dr. Browne in [place] every year routinely. Nephropathy: Positive Creat: 1.09; [...] Call if BG consistently <70 or >250. [phone] Continue to check blood sugar 4 times [...] 02/19/23 10:25 AM documented in this encounter [facility] 10-19-2022 History of Present illness Narrative Images [...] being taken. 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 Eye exam is current. Currently taking: No [...] Reduce lunch and HS insulin. 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 Had bilat cataract extraction Dr. Lopez. Sees Dr. Browne in [place] every year routinely. Nephropathy: Positive Creat: 1.09; [...] Call if BG consistently <70 or >250. [phone] Continue to check blood sugar 4 times [...] 10/19/22 10:25 AM documented in this encounter [facility] 06-19-2022 History of Present illness Narrative Images [...] being taken. 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 Eye exam is current. Currently taking: No [...] Reduce lunch and HS insulin. 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 Had bilat cataract extraction Dr. Quick. Sees Dr. Browne in [place] every year routinely. Nephropathy: Positive Creat: 1.09; [...] Call if BG consistently <70 or >250. [phone] Continue to check blood sugar 4 times [...] 06/19/22 11:20 PM documented in this encounter [facility] 02-13-2022 History of Present illness Narrative Images [...] being taken. 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 Eye exam is current. Currently taking: No [...] Reduce lunch and HS insulin. 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 Had bilat cataract extraction Dr. Lopez. Sees Dr. Browne in [place] every year routinely. Nephropathy: Positive Creat: 1.09; [...] to check stenosis. To be done in [place] office. 2. Education: Reviewed ABCs of diabetes [...] Call if BG consistently <70 or >250. [phone] Continue to check blood sugar 4 times [...] 02/13/22 11:20 PM documented in this encounter [facility] 10-13-2021 History of Present illness Narrative Images [...] being taken. 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 Eye exam is current. Currently taking: No [...] Type 1 diabetes, under good control Enoc iTtus Tr presents for follow-up of Type 1 diabetes Patient is currently managed with: Humalog insulin: 9-10 units at breakfast; 9-10 units at lunch; 12-15 units at supper and Lantus 18 units at bedtime . Most recent Hgb A1c is 7.4%. Reports occasional lows during the day. Typically eats a snack if BG <150 at HS. PLAN: See below. CPM Retinopathy: Negative CHARGER OPERATOR. Exam within last 12 months: yes Date: 10/16/20. Had bilat cataract extraction Dr. Lopez. Sees Dr. Browne in [place] every year routinely. Nephropathy: Negative Creat: 1.08; [...] Call if BG consistently <70 or >250. [phone] Continue to check blood sugar 4 times [...] 10/13/21 2:55 PM documented in this encounter [facility] 06-20-2021 History of Present illness Narrative Images [...] being taken. 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 Eye exam is current. Currently taking: No [...] HS. PLAN: See below. CPM Retinopathy: Negative CHARGER OPERATOR. Exam within last 12 months: yes Date: 10/16/20. Had bilat cataract extraction Dr. Lopez. Sees Dr. Browne in [place] every year routinely. Nephropathy: Negative Creat: 1.08; [...] Call if BG consistently <70 or >250. [phone] Continue to check blood sugar 4 times [...] 06/20/21 2:55 PM documented in this encounter [facility] 02-18-2021 History of Present illness Narrative Patient [...] being taken. 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 Eye exam is current. Currently taking: No [...] HS. PLAN: See below. CPM Retinopathy: Negative CHARGER OPERATOR. Exam within last 12 months: yes Date: 10/16/20. Had bilat cataract extraction Dr. Lopez. Sees Dr. Browne in [place] every year routinely. Nephropathy: Negative Creat: 1.08; [...] Call if BG consistently <70 or >250. [phone] Continue to check blood sugar 4 times [...] 02/18/21 9:57 PM documented in this encounter [facility] Evaluation note Diagnosis Type 1 diabetes [...] diabetic neuropathy (CMS/HCC) documented in this encounter [facility] Work Phone: Evaluation note* Diagnosis Type 1 [...] heart failure (CMS/HCC) documented in this encounter [facility] Work Phone: Evaluation note* Diagnosis 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- Primary Dyslipidemia Other and unspecified hyperlipidemia Congestive heart failure, unspecified HF chronicity, unspecified heart failure type (HCC) [facility] information availableW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) Type 1 diabetes mellitus with other specified complication ([facility]) documented in this encounter [facility] Work Phone: Evaluation note* Diagnosis NSTEMI (non-ST [...] diabetic neuropathy (Multi) documented in this encounter [facility] Work Phone: Evaluation note* Diagnosis 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) [facility] Diagnosis 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- Primary Primary hypertension Unspecified essential hypertension Dyslipidemia Other and unspecified hyperlipidemia [facility] Diagnosis 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)- Primary Pure hypercholesterolemia Essential hypertension Unspecified essential hypertension [facility] Diagnosis Stage 3b chronic kidney [...] with diabetic neuropathy documented in this encounter [facility] Work Phone: Evaluation note* Diagnosis 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)- Primary [facility] Diagnosis Claudication in peripheral vascular disease (HCC)- Primary Encounter for examination of blood pressure with abnormal findings 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 Congestive heart failure, unspecified HF chronicity, unspecified heart failure type (HCC) Hypertensive emergency [facility] Diagnosis Hyperglycemia- Primary Other abnormal [...] of cerebral infarction [facility] Diagnosis Coronary 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- Primary documented in [...] Unspecified essential hypertension [facility] Diagnosis Bilateral carotid artery stenosis Occlusion and stenosis of carotid artery without mention of cerebral infarction Coronary 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- Primary Claudication in [...] with diabetic neuropathy documented in this encounter [facility] Work Phone: Evaluation note* Diagnosis Bilateral carotid artery stenosis Occlusion and stenosis of carotid artery without mention of cerebral infarction Coronary 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- Primary NSTEMI (non-ST elevated myocardial infarction) (HCC) Acute myocardial infarction, subendocardial infarction, episode of care unspecified Hospital discharge follow-up Other follow-up examination [facility]* Diagnosis Bilateral carotid artery stenosis Occlusion [...] The patient will continue his therapy at [facility]. Physical findings include limited trunk ROM with discomfort. Continue with trunk mech trng, STW (needling), and core stability/ROM exercises. * Clinical Presentation: Stable and/or uncomplicated characteristics. * Level of Complexity: low * Problem List: activity limitations, ADLs/IADLs/self care skills, decreased functional level, decreased knowledge of HEP, decreased knowledge of precautions, fall risk, gait/locomotion, pain, range ofmotion/joint mobility and strength. [facility] Work Phone: History of Present illness NarrativePatient identified by name and date of . Patient demonstrated good understanding of exercises and stretching with cues to complete after instruction. He presented with palpable tension in gluts and QL and paraspinals that responded well to STW.[facility] Work Phone: History of Present illness Narrative* [...] with relief noted d/t tightness in LB. [facility] [place] Work Phone: History of Present illness Narrative* Tightness along the ITB and QL continues. * Palpable spams in both regions with with STW. * Fair trunk flexibility with SKTC. [facility] Work Phone: History of Present illness NarrativePatient identified by name and date of . Patient was able to progress with several exercises this date with addition of teri disc and focus on maintain upright posture. He presented with increased muscle tension in IT band and QL this date.[facility] [place] Work Phone: History of Present illness NarrativePatient identified by name and date of . Added IT band stretch this date and instructed for HEP due to palpable tension. Reviewed importance of HEP even if he feels sore to increased with ROM and decrease with muscle tension, he verbalized good understanding. Patient continues to present with palpable muscle tension/restrictions in his piriforms.[facility] Work Phone: History of Present illness NarrativePatient identified by name and date of . Added IT band stretch this date and instructed for HEP due to palpable tension. Reviewed importance of HEP even if he feels sore to increased with ROM and decrease with muscle tension, he verbalized good understanding. Patient continues to present with palpable muscle tension/restrictions in his piriforms. [facility] Work Phone: History of Present illness NarrativePatient [...] inclusion of trigger point dry needling. [facility] Work Phone: History of Present illness NarrativeSTW [...] not covering a TENS unit for the patient.[facility] Work Phone: reason for referral (narrative)* Consultation (Routine) - Authorized Specialty Diagnoses / Procedures Referred By Jimy t Referred To Contact Nephrology Diagnoses Stage 3b chronic kidney disease ([facility]) Procedures Follow Up In Nephrology Ayanna Albert DO [address] [place] [address] Referral ID Status Reason Start Date Expiration Date V isits Requested Visits Authorized [id number] Authorized 08/25/2023 08/24/2024 1 1 [facility] Work Phone: Reason for referral (narrative)* Consultation (Routine) - Authorized Specialty Diagnoses / Procedures Referred By Contac t Referred To Contact Nephrology Diagnoses Stage 3b chronic kidney disease (Multi) Procedures Follow Up In Nephrology Madie Albert APRN-CNP, JOIE [address] [place] [address] Referral ID Status Reason Start Date Expiration Date V isits Requested Visits Authorized [id number] Authorized 02/24/2024 02/23/2025 1 1 [facility] Work Phone: Rebkur for referral (narrative)No reason for referral information availableWOhioHealth [facility] Work Phone: Reason for visit Narrative* Initial Evaluation . lumbar DDD. * Referred by: [facility] Work Phone: Reason for visit Narrative* Auth/Cert Specialty Diagnoses / Procedures Referred By Contac t Referred To Contact Diagnoses NSTEMI (non-ST elevated myocardial infarction) (HCC) NSTEMI Referral ID Status Reason Start Date Expiration Date Visits Re quested Visits Authorized [id number] 1 1 [facility] Narrative* Auth/Cert (Routine) Specialty Diagnoses / Procedures Referred By Contac t Referred To Contact Diagnoses Cardiovascular stress test abnormal Fatigue, unspecified type SOB (shortness of breath) Cardiovascular stress test abnormal [R94.39] Fatigue, unspecified type [R53.83] SOB (shortness of breath) [R06.02] Procedures Left Heart Cath Referral ID Status Reason Start Date Expiration Date Visits Re quested Visits Authorized [id number] 1 1 [facility] Instructions * Patient Instructions - Alexandra Givens [...] FoundDocuments on File Type Date Recorded Patient Orchard Pruner Expl anation Advance Directives and Living Will Documents on File Type Date Recorded Patient Orchard Pruner Expl anation Advance Directives and Livin g Will 10/18/2020 1:33 PM Documents on File Type Date Recorded Patient Orchard Pruner Expl anation Advance Directives and Livin g Will 10/18/2020 1:33 PM Documents on File Type Date Recorded Patient Orchard Pruner Expl anation Advance Directives and Livin g Will 02/21/2021 3:38 PM Documents on File Type Date Recorded Patient Orchard Pruner Expl anation Advance Directives and Livin g Will 02/21/2021 3:38 PM Latest Code Status on File Code Status Date Activated Date Inactivated Comments Full Code 10/11/2023 5:02 AM Question Answer Comments Plan of Care: Code Status Discussion Completed Decision Maker: Patient Advance Directive Response Recorded Date/ Time Living Will Yes August 05 7:59am Power of Wrapper And Preserver Yes August 05 7:59am Latest Code Status [...] Documents on File Type Date Recorded Patient Orchard Pruner Expl anation Advance Directives and Livin g [...] Documents on File Type Date Recorded Patient Orchard Pruner Expl anation Advance Directives and Livin g [...] diabetes The initial diagnosis of diabetes was [id number] years ago in 1994. Disease course has [...] being taken. 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 Eye exam is current. Patient with a [...] blood sugar though. PLAN: CPM. 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 Exam within last 12 months: yes Date: 08/2018 . Had bilat cataract extraction Dr. Lopez. Sees Dr. Browne in [place] every year routinely. Nephropathy: Negative Creat: 1.2, [...] Call if BG consistently <70 or >250. [phone] Continue to check blood sugar 4 times [...] being taken. He does not see a balance and hairspring assembler.Eye exam is current (Jun 16). 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 male Subjective: HPI: Enoc Fernandes presents for follow-up of Type 1 diabetes The initial diagnosis of diabetes was [id number] years ago in 1994. Disease course has [...] being taken. 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 Eye exam is current. Currently taking: No [...] the morning. 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 Exam within last 12 months: yes Date: 08/2018- patient due next month for updated exam Had bilat cataract extraction Dr. Lopez. Sees Dr. Browne in [place] every year routinely. Nephropathy: Negative Creat: 1.0, [...] to bedtime appear to be typically less [id number] and usually less than 180. He was [...] Call if BG consistently <70 or >250. [phone] Continue to check blood sugar 4 times [...] diabetes The initial diagnosis of diabetes was [id number] years ago in 1994. Disease course has [...] being taken. 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 Eye exam is current. Currently taking: No [...] at HS. 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 Exam within last 12 months: yes Date: 08/2018- patient due next month for updated exam Had bilat cataract extraction Dr. Lopez. Sees Dr. Browne in [place] every year routinely. Nephropathy: Negative Creat: 1.08; [...] Call if BG consistently <70 or >250. [phone] Continue to check blood sugar 4 times [...] being taken. 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 Eye exam is current. Currently taking: No oral hypoglycemic medications Humalog insulin: 10 units at breakfast; 10 units at lunch; 14-15 units at supper Lantus insulin: 18 units at bedtime Outpatient Medications Marked as Taking for the 06/18/20 encounter (Office Visit) with Paty Ortega ROSS LIFT OPERATOR: amLODIPine (NORVASC) 10 MG tablet, Take [...] <150 atHS. 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 Exam within last 12 months: yes Date: 09/2019- patient due September 2020for updated exam Had bilat cataract extraction Dr. Lopez. Sees Dr. Browne in [place] every yearroutinely. Nephropathy: Negative Creat: 1.01; eGFR: [...] Call if BG consistently <70 or >250. [phone] Continue to check blood sugar 4 times [...] being taken. 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 Eye exam is current. Currently taking: No [...] <150 atHS. 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 Exam within last 12 months: yes Date: 10/16/20. Had bilat cataract extraction Dr. Lopez. Sees Dr. Browne in [place] every year routinely. Nephropathy: Negative Creat: 1.01; [...] Call if BG consistently <70 or >250. [phone] Continue to check blood sugar 4 times [...] diabetes The initial diagnosis of diabetes was [id number] years ago in 1994. Disease course has [...] being taken. 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 Eye exam is current. Currently taking: No [...] same dose of 18 unitsnightly. 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 Exam within last 12 months: yes Date: 08/2018 . Had bilat cataract extraction Dr. Lopez. Sees Dr. Browne in [place] every year routinely. Nephropathy: Negative Creat: 1.0, [...] Call if BG consistently <70 or >250. [phone] Continue to check blood sugar 4 times [...] Ultrasound doppler carotid Mary Yan MD [address] [place] [address] Status Reason Specialty Diagnoses / Procedures Referre d By Contact Referred To Contact Closed Cardiology Diagnoses Bilateral carotid artery stenosis Procedures Ultrasound doppler carotid Mary Yan MD [address] [place] [address] [place] [address] Specialty Diagnoses / Procedures Referred By Contac t Referred To Contact Urology Diagnoses Elevated PSA Paty Ortega CNP [address] [place] [address] Alvaro Gutierrez MD [address] [place] [phone] Referral ID Status Reason Start Date Expiration Date Visits Requested Visits Authorized [id number] Pending Review Specialty Services Required/Pat ient's Best Interest 06/19/2022 06/19/2023 1 1 Specialty Diagnoses / Procedures Referred By Contac t Referred To Contact Cardiology Diagnoses Bilateral carotid artery stenosis Procedures Ultrasound doppler carotid Paty Ortega CNP [address] [place] [address] Referral ID Status Reason Start Date Expiration Date V isits Requested Visits Authorized [id number] Authorized 10/19/2022 10/19/2023 1 1 Specialty Diagnoses / Procedures Referred By Contac t Referred To Contact Radiology Diagnoses Congestive heart failure, unspecified HF chronicity, unspecified heart failure type (HCC) 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 DATE CREATED AUTHOR AUTHOR'S ORGANIZ ATION 08/04/2023 [facility] DATE CREATED AUTHOR AUTHOR'S ORGANIZ ATION 08/06/[address] [facility] DATE CREATED AUTHOR AUTHOR'S ORGANIZ ATION 10/13/2023 [facility] DATE CREATED AUTHOR AUTHOR'S ORGANIZ ATION 11/12/2024 [facility] DATE CREATED AUTHOR AUTHOR'S ORGANIZ ATION 02/11/2025 [facility] DATE CREATED AUTHOR AUTHOR'S ORGANIZ ATION 02/27/[address] [facility] DATE CREATED AUTHOR AUTHOR'S ORGANIZ ATION 03/13/2025 [facility] DATE CREATED AUTHOR AUTHOR'S ORGANIZ ATION 03/13/2025 [facility] DATE CREATED AUTHOR AUTHOR'S ORGANIZ ATION 03/30/2025 [facility] DATE CREATED AUTHOR AUTHOR'S ORGANIZ ATION 04/02/2025 [facility] Reason for Visit (unrecogniz ed section and content) Reason Comments Diabetes Mellitus Reason Onset Date Comments Medication Refill 02/18/2021 Reason Comments Diabetes Mellitus Status Reason Specialty Diagnoses / Procedures Referre d By Contact Referred To Contact Closed Cardiology Diagnoses Bilateral carotid artery stenosis Procedures Ultrasound doppler carotid Mary Yan MD [facility] [place] [address] [place] [address] Reason Onset Date Comments Medication Refill 10/08/2021 [...] No coded services entered Praful Maloney MD [address] [place] [address] [phone] Referral ID Status Reason Start Date Expiration Date Visits Re quested Visits Authorized [id number] 1 1 Reason Comments Initial Visit (Intake) SOBOE Specialty Diagnoses / Procedures Referred By Contac t Referred To Contact Cardiology Diagnoses Congestive heart failure, unspecified HF chronicity, unspecified heart failure type (HCC) Mary Yan MD [address] [place] [address] [place] [address] Referral ID Status Reason Start Date Expiration Date Visits Re quested Visits Authorized [id number] Closed 10/19/2023 10/18/2024 1 1 Reason Comments Respiratory Distress Pt comes in for dif ficulty breathing. Pt states that he was dx with a viral lung infection 1 wk ago and placed on a steroid. Pt had covid 1 month ago and was admitted for 1 wk at this facility. 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 EMS reports an O2 level in [...] carotid artery stenosis Sandi Phan PA-C [address] [place] [address] Phone: tel: fax: [place] [id number] [place] [address] Phone: tel: Referral ID Status Reason Start Date Expiration Date V isits Requested Visits Authorized [id number] Pending Review 11/07/2024 11/07/2025 1 1 Reason [...] Up In Nephrology Ayanna Albert DO [address] [place] [address] Phone: tel: fax: Referral ID Status Reason Start Date Expiration Date V isits Requested Visits Authorized [id number] Authorized 08/29/2024 08/29/2025 1 1 Reason Comments Shortness of Breath Abnormal Lab BNP Reason Comments Diabetes Mellitus Diabetic Eye Exam du e on 10/14/2021 Reason Onset Date Comments Results 03/27/2025 Lab Care Teams (unrecognized sec tion and content) Acid Wash Operator Relationship Specialty Start Date End Date Nancy Mirza MD PCP - General Family Medicine 01/09/16 Acid Wash Operator Relationship Specialty Start Date End Date Nancy Mirza MD PCP - General Family Medicine 01/09/16 Acid Wash Operator Relationship Specialty Start Date End Date Nancy Mirza MD PCP - General Family Medicine 01/09/16 Acid Wash Operator Relationship Specialty Start Date End Date Nancy Mirza MD PCP - General Family Medicine 01/09/16 Acid Wash Operator Relationship Specialty Start Date End Date Nancy Mirza MD PCP - General Family Medicine 01/09/16 Acid Wash Operator Relationship Specialty Start Date End Date Nancy Mirza MD PCP - General Family Medicine 01/09/16 Acid Wash Operator Relationship Specialty Start Date End Date Nancy Mirza MD PCP - General Family Medicine 01/09/16 Acid Wash Operator Relationship Specialty Start Date End Date Nancy Mirza MD [address] [place] [address] PCP - General Family Medicine 01/09/16 Acid Wash Operator Relationship Specialty Start Date End Date Nancy Mirza MD [address] [place] [address] PCP - General Family Medicine 01/09/16 Acid Wash Operator Relationship Specialty Start Date End Date Nancy Mirza MD [address] [facility] [place] [address] PCP - General 11/01/18 Acid Wash Operator Relationship Specialty Start Date End Date Ryley Jeter MD [address] [place], [place] [id number] PCP - General Family Medicine 10/08/23 Acid Wash Operator Relationship Specialty Start Date End Date Nancy Mirza MD [address] [facility] [place] [address] PCP - General 11/01/18 Acid Wash Operator Relationship Specialty Start Date End Date Ryley Jeter MD [address] [place], [place] [address] PCP - General Family Medicine 10/08/23 Acid Wash Operator Relationship Specialty Start Date End Date Ryley Jeter MD [address] [place] [address] PCP - General Family Medicine 10/08/23 Team Status: Active Member Role Status Lizzette Jeter MD Primary Care Provider Active Team Status: Inactive Member Role Status Lizzette Jeter MD Primary Care Provider Active Jana Ferguson PRINTED CIRCUIT BOARD PREASSEMBLER, PRINTED CIRCUIT BOARD PREASSEMBLER-C Attending Provider Active Team Status: Inactive Member Role Status Dates Ryley Jeter MD Primary Care Provide r, Attending Provider, Referring Provider Active Acid Wash Operator Relationship Specialty Start Date End Date Ayanna Albert DO [address] [place] [id number] PCP - [employer] Medicare Advantage PCP 11/01/23 Generic Provider, No Assigned MD [address] [place] [address] PCP - General Internal Medicine 11/26/23 Acid Wash Operator Relationship Specialty Start Date End Date Ayanna Albert DO [address] [place] [id number] PCP - [employer] Medicare Advantage PCP 11/01/23 Gerri Amos MD [address] [place] [address] PCP - General Internal Medicine 11/26/23 Acid Wash Operator Relationship Specialty Start Date End Date Ryley Jeter MD [address] [place] [address] PCP - General Family Medicine 10/08/23 Acid Wash Operator Relationship Specialty Start Date End Date Nancy Mirza MD [address] [place], [place] [id number] PCP - General 11/01/18 11/25/23 Acid Wash Operator Relationship Specialty Start Date End Date Ryley Jeter MD [address] [place], [place] [address] PCP - General Family Medicine 10/08/23 Acid Wash Operator Relationship Specialty Start Date End Date Ryley Jeter MD [address] [place] [address] PCP - General Family Medicine 10/08/23 Acid Wash Operator Relationship Specialty Start Date End Date Ryley Jeter MD [address] [place] [address] PCP - General Family Medicine 10/08/23 Acid Wash Operator Relationship Specialty Start Date End Date Ryley Jeter MD [address] [place] [address] PCP - General Family Medicine 10/08/23 Acid Wash Operator Relationship Specialty Start Date End Date Ayanna Albert DO [address] [place] [address] PCP - [employer] Medicare Advantage PCP 11/01/23 Generic Provider, No Assigned MD Doris [address] [place] [address] PCP - General Internal Medicine 11/26/23 Acid Wash Operator Relationship Specialty Start Date End Date Ryley Jeter MD [address] [place] [address] PCP - General Family Medicine 10/08/23 Acid Wash Operator Relationship Specialty Start Date End Date Ayanna Albert DO [address] [place] [id number] PCP - [employer] Medicare Advantage PCP 11/01/23 Generic Provider, No Assigned MD Dor[address] [place] [address] PCP - General Internal Medicine 11/26/23 Acid Wash Operator Relationship Specialty Start Date End Date Ryley Jeter MD [address] [place] [address] PCP - General Family Medicine 10/08/23 Acid Wash Operator Relationship Specialty Start Date End Date Ryley Jeter MD [address] [place], [place] [address] PCP - General Family Medicine 10/08/23 Acid Wash Operator Relationship Specialty Start Date End Date Ryley Jeter MD [address] [place] [address] PCP - General Family Medicine 10/08/23 Acid Wash Operator Relationship Specialty Start Date End Date Ryley Jeetr MD [address] [place] [address] PCP - General Family Medicine 10/08/23 Acid Wash Operator Relationship Specialty Start Date End Date Ryley Jeter MD [address] [place] [address] PCP - General Family Medicine 10/08/23 Acid Wash Operator Relationship Specialty Start Date End Date Ryley Jeter MD [address] [place] [address] PCP - General Family Medicine 10/08/23 Acid Wash Operator Relationship Specialty Start Date End Date Ryley Jeter MD [address] [place] [address] PCP - General Family Medicine 10/08/23 Acid Wash Operator Relationship Specialty Start Date End Date Ryley Jeter MD [address] [place] [address] PCP - General Family Medicine 10/08/23 Kristy Parker MD [address] [place], [place] [address] [place] [address] Consulting Physician Vascular Surgery 11/09/24 Acid Wash Operator Relationship Specialty Start Date End Date Ryley Jeter MD [address] [place], [place] [address] PCP - General Family Medicine 10/08/23 Kristy Parker MD [address] [place] [address] Consulting Physician Vascular Surgery 11/09/24 Acid Wash Operator Relationship Specialty Start Date End Date Ryley Jeter MD [address] [place], [place] [address] PCP - General Family Medicine 10/08/23 Kristy Parker MD [address] [place] [address] Consulting Physician Vascular Surgery 11/09/24 Acid Wash Operator Relationship Specialty Start Date End Date Ryley Jeter MD [address] [place] [address] PCP - General Family Medicine 10/08/23 Kristy Parker MD [address] [place] [address] Consulting Physician Vascular Surgery 11/09/24 Acid Wash Operator Relationship Specialty Start Date End Date Ryley Jeter MD [address] [place], [place] [address] PCP - General Family Medicine 10/08/23 Kristy Parker MD [address] [place] [address] Consulting Physician Vascular Surgery 11/09/24 Team Status: Inactive Member Role Status Dates Ryley Jeter MD Primary Care Provider Active St art: February 06, 2025 End: February 06, 2025 Dr. Kerwin Tamayo MD Attending Provider Activ e Start: February 06, 2025 End: February 06, 2025 Acid Wash Operator Relationship Specialty Start Date End Date Ryley Jeter MD [address] [place], [place] [id number] PCP - General Family Medicine 10/08/23 Kristy Parker MD [address] [place] [address] Consulting Physician Vascular Surgery 11/09/24 Acid Wash Operator Relationship Specialty Start Date End Date Ryley Jeter MD [address] [place], [place] [address] PCP - General Family Medicine 10/08/23 Kristy Parker MD [address] [facility] [place] [address] Consulting Physician Vascular Surgery 11/09/24 Acid Wash Operator Relationship Specialty Start Date End Date Ryley Jeter MD [address] [place], [place] [address] PCP - General Family Medicine 10/08/23 Kristy Parker MD [address] [place] [address] Consulting Physician Vascular Surgery 11/09/24 Acid Wash Operator Relationship Specialty Start Date End Date Generic Provider, No Assigned PcpMD PCP - General Internal Medicine 11/26/23 Acid Wash Operator Relationship Specialty Start Date End Date Ryley Jeter MD [address] [place], [place] [id number] PCP - General Family Medicine 10/08/23 Kristy Parker MD [address] [place] [address] Consulting Physician Vascular Surgery 11/09/24 Acid Wash Operator Relationship Specialty Start Date End Date Ryley Jeter MD [address] [place] [address] PCP - General Family Medicine 10/08/23 Kristy Parker MD [address] [place] [address] Consulting Physician Vascular Surgery 11/09/24 Scheduled Active and Recently Administ ered Medications (unrecognized section and content) Medication Order 10/11/2023 10/12/2023 10/13/2023 albuterol 2.5 mg /3 mL (0.083 %) nebulizer solution 2.5 mg (COMPLETED) 2.5 mg, nebulization, Once, On Wed10/11/23 at 0150, For 1 dose 0203 (Given - Provider: Scarlet Ashford, AUDIO NARRATOR - Comment: albuterol) amLODIPine (Norvasc) tablet 10 [...] swallow. 0603 (Given - Provider: Nancy Juares, AUDIO NARRATOR) cefTRIAXone (Rocephin) 2 g IV in dextrose [...] Juares, OLIVIA)1821 (Given - Provider: Scarlet Ashford, AUDIO NARRATOR)2145 (Given - Provider: Scarlet Ashford AUDIO NARRATOR) 0652 (Given - Provider: Amber Pascal AUDIO NARRATOR)1156 (Given - Provider: Amber Pascal AUDIO NARRATOR)1913 (Given - Provider: Malika Hemphill, AUDIO NARRATOR)2307 (Given - Provider: Malika Hemphill AUDIO NARRATOR) 0621 (Given - Provider: Delmar Mcgowan AUDIO NARRATOR)1152 (Given - Provider: Delmar Mcgowan RRT)1800 (Due [...] at 0900 0900 (Given - Provider: Moody Gorman RN) metoprolol succinate XL (Toprol-XL) 24 hr [...] 0603 (Rate/Dose Change - Provider: Nancy Juares, AUDIO NARRATOR)0918 (Rate/Dose Change - Provider: Nancy Juares RRT)1151 (Rate/Dose Verify - Provider: Nancy Juares AUDIO NARRATOR)1155 (Rate/Dose Change - Provider: Nancy Juares RRT)1428 (Rate/Dose Verify - Provider: Nancy Juares AUDIO NARRATOR)1822 (Start - Provider: Scarlet Ashford AUDIO NARRATOR) 0208 (Rate/Dose Verify - Provider: Scarlet Ashford AUDIO NARRATOR)0654 (Rate/Dose Change - Provider: Amber Pascal RRT [...] 2219 (Given - Provider: Kristi Bowman, RN) cfklgqkqevtd-qfyqlgshik-reuqiwjt (Zosyn) IV 3.375 g (COMPLETED) 3.375 g, [...] physician 2016 (Given - Provider: Janice Spear, FIDEL) insulin glargine (LANTUS) injection 16 Units (CANCELED) [...] Poppy Olivera RN)0604 (Restarted - Provider: Poppy Olviera RN)0616 (Rate/Dose Change - Provider: Sultana Baptiste [...] 11/27/23 at 0337, Anginal pain, may repeat [id number] x3, then notify physician. DO NOT CRUSH [...] Comment: 8 units instructed verbal order from [facility]) isosorbide mononitrate (IMDUR) 24 hr tablet 30 [...] Julia Chan RN)0515 (Rate/Dose Verify - Provider: Juila Chan RN)0520 (Paused - Provider: Julia Chan [...] BE BASED ON THE PRIMARY CLINICAL RECORDS. [employer] provides no warranty or guarantee of the accuracy or completeness of information in this document.
[2025-04-03] MEDS: Azithromycin 500 MG in Dextrose 5%-Water (250mL Bag) 250 ML 250 MG IV (04:40)
[2025-04-03 04:41] LABS: Prothrombin Time (Protime)PT. 13.4 SECONDS (11.7-14.9)
[2025-04-03 04:42] LABS: Partial Thromboplast Time 37.3 Seconds (24.1-36.2)
[2025-04-03 05:16] LABS: Troponin T High Sens 4 HR 80 ng/L (<=22)
[2025-04-03 05:21] LABS: Magnesium 2.3 mg/dL (1.5-2.2)
[2025-04-03 05:43] LABS: Allen Test Positive; Base Excess -8 mmol/L (-2 to +2); Bicarbonate 17.5 mmol/L (22-26); Blood Gas Specimen Type ART; Mode Not entered; O2 Delivery Device BiPAP; PEEP 10; PIP 18; PO2 83 mmHG (75-100); RR 12; SITE R Radial; SO2 96 % (95-99); Total Carbon Dioxide 18 mmol/L; pCO2 29.8 mmHg (35-45); pH 7.38 (7.35-7.45)
--- NOTE | 2025-04-03 05:55 | ECHOD_ITS ---
Reason For Study Reason For Study: CONGESTIVE HEART FAILURE Procedure This was a 2D Doppler, Color Flow transthoracic echocardiogram. The patient was scanned supine. Exam performed portable in ICU/CCU. Left Ventricle Normal size and thickness. Mid to distal anterior septal, inferior septal, inferior and posterior hypokinesis. Estimated LVEF 40%. Stage I diastolic dysfunction. Right Ventricle Normal right ventricle. Atria The left atrium is mildly enlarged. Normal right atrium. Mitral Valve Severe mitral annular calcification. Moderate (2+) posteriorly directed mitral valve insufficiency. Tricuspid Valve Trivial tricuspid valve insufficiency. Right ventricular systolic pressure estimated to be 41 mmHg. Aortic Valve Aortic sclerosis, no stenosis. Pulmonic Valve The pulmonic valve is not well visualized. Great Vessels Normal sized aortic root. Pericardium/Pleural No pericardial effusion. MMode/2D Measurements & Calculations LVIDd: 4.6 cm IVSd: 0.94 cm LVOT diam: 1.9 cm LVIDs: 3.3 cm LVPWd: 1.1 cm LVOT area: 2.9 cm2 RVDd: 4.2 cm FS: 28.4 % asc Aorta Diam: 2.8 cm LAV(MOD-bp): 45.5 ml LVAd ap4: 25.7 cm2 LAV(MOD-bp) Indexed: 26.6 ml/m2 LVLd ap4: 8.0 cm LAV(MOD-sp2): 66.4 ml EDV(MOD-sp4): 69.2 ml LAV(MOD-sp4): 28.4 ml EDV(sp4-el): 70.2 ml LVAs ap4: 18.6 cm2 LVLs ap4: 7.3 cm ESV(MOD-sp4): 40.5 ml ESV(sp4-el): 40.1 ml EF(MOD-sp4): 41.4 % EF(sp4-el): 42.9 % LVAd ap2: 25.7 cm2 SV(MOD-sp4): 28.7 ml SV(MOD-sp2): 32.8 ml LVLd ap2: 8.0 cm SI(MOD-sp4): 16.7 ml/m2 SI(MOD-sp2): 19.2 ml/m2 EDV(MOD-sp2): 65.4 ml EDV(sp2-el): 69.5 ml LVAs ap2: 17.3 cm2 LVLs ap2: 7.5 cm ESV(MOD-sp2): 32.6 ml ESV(sp2-el): 33.7 ml EF(MOD-sp2): 50.2 % SV(sp4-el): 30.1 ml Ao sinus diam: 3.4 cm LA A4 area: 12.9 cm2 LA dimension(2D): 4.0 cm RA A4 area: 17.5 cm2 TAPSE: 2.0 cm Time Measurements MV dec time: 0.13 sec Doppler Measurements & Calculations MV E max tommy: 136.5 cm/sec Lat Peak E' Tommy: 10.7 cm/sec Med Peak E' Tommy: 6.4 cm/sec MV A max tommy: 82.2 cm/sec E/E' lat: 12.7 E/E' med: 21.3 MV E/A: 1.7 Ao V2 max: 107.7 cm/sec LV V1 max: 100.1 cm/sec SV(LVOT): 64.4 ml Ao max P.6 mmHg LV V1 max P.0 mmHg Ao V2 mean: 79.9 cm/sec LV V1 mean P.5 mmHg Ao mean P.8 mmHg LV V1 mean: 75.0 cm/sec Ao V2 VTI: 22.5 cm LV V1 VTI: 21.8 cm AV (velocity ratio): 0.97 SORAIDA(I,D): 2.9 cm2 SORAIDA(V,D): 2.7 cm2 PA V2 max: 106.2 cm/sec TR max tommy: 255.8 cm/sec TR max P.2 mmHg ECHO/Echo Complete Interpretation Summary Mid to distal anterior septal, inferior septal, inferior and posterior hypokine sis. Estimated LVEF 40%. Stage I diastolic dysfunction. The left atrium is mildly enlarged. Severe mitral annular calcification. Moderate (2+) posteriorly directed mitral valve insufficiency. Right ventricular systolic pressure estimated to be 41 mmHg. Aortic sclerosis, no stenosis. Ordering Physician: Dyana Hwang Performed By: Fiordaliza Edgar RDCS and Student
[2025-04-03] MEDS: Insulin Lispro 100 UNIT/ML INSULN.PEN SC ×2 (05:59→11:52)
[2025-04-03] MEDS: hydrALAZINE 50 MG Tablet PO ×2 (06:05→12:54)
[2025-04-03] MEDS: Heparin Injection (Vial) 5,000 UNIT/ML VIAL 4500 UNIT IV (06:06)
[2025-04-03 06:12] LABS: Bedside Glucose 435 mg/dL (74-106)
[2025-04-03 06:19] LABS: Absolute Lymphocyte Count 0.43 X10^3/uL (0.83-4.51); Absolute Neutrophil Count 12.4 X10^3/uL (2.0-7.7); Basophil# 0.04 X10^3/uL; Basophil% 0.3 % (0-1); Hematocrit 28.9 % (40-54); Hemoglobin 9.3 g/dL (13.0-16.5); Lymphocyte # 0.43 X10^3/ul (0.83-4.51); Lymphocyte % 3.3 % (19-41); Mean Corp Hgb Conc 32.2 g/dL (32-36); Mean Corpuscular Hgb 30.1 pg (27.0-32.0); Mean Corpuscular Volume 93.5 fL (80-94); Mean Platelet Vol. 11.4 fl (6.2-12.0); Monocyte# 0.14 X10^3/uL; Monocyte% 1.1 % (0-10); NRBC Flagged by Analyzer 0 % (0-5); Neutrophil # 12.37 X10^3/uL (2.7-7.7); Neutrophil % 94.8 % (47-70); POSITIVE DIFFERENTIAL YES; Platelet Count 268 K/mm3 (150-450); RBC Distribution Width CV 13.4 % (11.6-14.6); RBC Distribution Width SD 45.9 fl (35.1-43.9); Red Blood Count 3.09 M/mm3 (4.6-6.2)
[2025-04-03] MEDS: HEPARIN/D5w 25,000 UNITS 25,000 UNITS/250 ML IV.SOLN. 10 UNITS CONT INF (06:19)
[2025-04-03 06:36] LABS: ALB/GLOB Ratio 1.5 RATIO (0.9-2.4); AST(SGOT) 24 U/L (<=37); Alanine Aminotransfer ALT/SGPT 16 U/L (<=46); Albumin, Serum 3.6 g/dL (3.4-4.8); Alkaline Phosphatase 80 U/L (40-129); Anion Gap 18 (5-15); BUN 44 mg/dL (4-19); BUN/Creat Ratio 24.6 RATIO (10-20); Calcium,Total 7.9 mg/dL (7.6-11.0); Carbon Dioxide 15.5 mmol/L (21.0-32.0); Chloride 104 mmol/L (98-108); Cholesterol 137 mg/dL (<=200); Creatinine, Serum 1.77 mg/dL (0.70-1.20); EST Glomerular Filtration Rate 38 (>60); Estimated Creatinine Clearance 28.47 ml/min (50-250); Globulin 2.4 g/dL (2.2-4.2); Glucose 428 mg/dL (70-99); High Density Lipoprotein 48 mg/dL; Low Density Lipoprotein Calc. 80 mg/dL; Potassium 4.5 mmol/L (3.3-5.1); Procalcitonin 0.31 ng/mL (<=0.10); Sodium Level 137 mmol/L (133-145); Total Bilirubin 0.38 mg/dL (0.00-1.30); Triglycerides 44 mg/dL; Very Low Density Lipoprotein 9 mg/dL (5-40); cholesterol:hdl ratio screen 2.87
[2025-04-03] MEDS: Potassium Chloride Oral Tablet 20 MEQ PO ×2 (07:57→16:45)
[2025-04-03] MEDS: Ezetimibe 10 MG Tablet PO (07:57)
[2025-04-03] MEDS: Aspirin E.C. 81 MG Tablet PO (07:57)
[2025-04-03] MEDS: Lisinopril 5 MG Tablet PO (07:58)
[2025-04-03] MEDS: amLODIPine 10 MG Tablet PO (07:58)
[2025-04-03] MEDS: Metoprolol(XL)Succ 25 MG Tablet PO (07:58)
--- NOTE | 2025-04-03 08:50 | CON.PCM.CC_ITS ---
Assessment & Plan Assessment/Plan (1) Acute hypoxic respiratory failure: PLAN: Plan RECOMMENDATIONS: 1. Continue supplemental oxygen to maintain saturations at or above 90%. 2. Empiric BiPAP therapy with naps and nightly. 3. Continue empiric antimicrobials, bronchodilators and steroids. 4. Await results of echocardiogram. 5. Gentle diuresis as tolerated by hemodynamics and renal function. 6. The patient will undoubtedly need to follow-up in the pulmonary medicine clinic so that baseline PFTs can be obtained. 7. Smoking cessation is advisable. IMPRESSIONS: 1. Acute hypoxemic respiratory failure Clinical concern for multifactorial etiology with possible COPD exacerbation along with possible CHF contributing. The patient has an extensive tobacco abuse history, but has never been formally diagnosed with COPD. He does have evidence of bilateral pleural effusions along with questionable airspace disease, concerning for pneumonia. Accordingly, the patient will be continued on scheduled bronchodilators, antimicrobials and IV steroids. In addition, scheduled diuretics will be continued, as tolerated by hemodynamics and renal function. In the interim, surface echocardiogram is pending. The patient appears improved clinically with the aforementioned interventions with minimal supplemental oxygen requirement. Ideally, the patient will need outpatient follow-up in the pulmonary medicine office after discharge so that baseline PFTs can be obtained. 2. Chronic tobacco dependency Tobacco cessation is strongly advised. Recommend outpatient pulmonary follow-up and PFTs. 3. Elevated troponin likely secondary to demand ischemia in the setting of #1 Continue current supportive care while awaiting results of echocardiogram. 4. History of diabetes mellitus/hypertension/hyperlipidemia/chronic kidney disease/BPH Complicates care, management, recovery and prognosis. Continue home medications as indicated. CODE STATUS: DNR CCA without intubation This note was generated with [employer] [place] dictation software. It may contain incorrect words, spelling, and punctuation that were not noted in checking the note before signing. HPI Consult Data Date of Consult: 04/03/25 HPI Narrative Reason for Consultation: Respiratory failure HPI Narrative: The patient is an 79-year-old male, with a history as outlined below, who presented to the emergency department via EMS on the morning of April 03 with complaints of worsening dyspnea. The patient has an extensive tobacco abuse history and continues to smoke 0.5 packs of cigarettes per day. He does utilize supplemental oxygen on a nocturnal basis at 4 to 5 L/min. The patient reported that he has never been evaluated by a braille operator or completed pulmonary function studies. Therefore, it is unknown if the patient has underlying obstructive lung disease. He does not utilize any inhalers at his baseline. On presentation to the emergency department, the patient was documented to be afebrile but was notably hypertensive with a blood pressure of 206/80 mmHg. Laboratory evaluation was notable for a white blood cell count of 15,000. ABG was notable for a pH of 7.38 with a PCO2 of 29 and PO2 of 83. Chemistry profile was notable for a creatinine of 1.8. Lactate was normal at 1.3. Troponin was mildly elevated at 76. CTA chest demonstrated bilateral pleural effusions with likely associated atelectasis or mild airspace disease in the bases. Strep and urine Legionella antigens were negative. Respiratory viral panel was negative. COVID, influenza and RSV PCR's were negative. The patient was subsequently placed on scheduled diuretics, antimicrobials, bronchodilators and steroids. In light of his increased work of breathing, the patient was placed on BiPAP therapy. He was admitted to the medical intensive care unit for further management. This morning, the patient has been weaned from BiPAP to nasal cannula oxygen at 2 L/min. He does report interval improvement in his breathing quality. An echocardiogram has been ordered and is currently pending. The patient's CODE STATUS was once again confirmed this morning to be a DNR CCA without intubation. [facility] Medical History Chronic anemia Tobacco use COPD (chronic obstructive pulmonary disease) HLD (hyperlipidemia) HTN (hypertension) BPH (benign prostatic hyperplasia) Chronic low back pain with sciatica Diabetes mellitus, type 2 CKD (chronic kidney disease), stage III Pneumonia COVID Wears glasses Wears dentures Home Medications ?Medication ?Instructions ?Recorded ?Last Taken ?Type amlodipine 10 mg tablet (Norvasc) 10 mg PO 1200 08/12/21 History aspirin 81 mg tablet,delayed 81 mg PO DAILY 08/05/21 U nknown History release insulin glargine 100 unit/mL (3 15 unit subcut QPM 03/21 Unknown History mL) subcutaneous pen (Lantus Solostar U-100 Insulin) insulin lispro 100 unit/mL 0 unit subcut TID SLIDING S JENNIFER 08/05/21 Unknown History subcutaneous pen tamsulosin 0.4 mg capsule (Flomax) 0.4 mg PO .COMPLEX urination 08/05/21 Unknown History ezetimibe 10 mg tablet 10 mg PO DAILY 04/06/24 Unkn own History lisinopril 5 mg tablet 5 mg PO DAILY 04/06/24 Unkno wn History metoprolol succinate 25 mg 25 mg PO DAILY 04/06/24 Unk nown History tablet,extended release 24 hr blood sugar diagnostic (Contour 09/12/24 Unknown Hist ory Next Test Strips) potassium chloride 20 mEq 20 meq PO BIDCM 30 days #60 tabs 09/14/24 Unknown Rx tablet,extended release(part/cryst) furosemide 40 mg tablet (Lasix) 40 mg PO DAILY 5 Unknown History hydralazine 50 mg tablet 50 mg PO Q8H 04/03/25 Unknow n History Allergy/AdvReac Type Severity Reaction Status Date / Time Corticosteroids AdvReac Other Verified 04/03/25 00:16 (Glucocorticoids) (steroids) Cntbmfh-OIX-RtP Reductase AdvReac Other Verified 04/03/25 00:16 Inhibitor (Hbiembl-Deb-Fil Reductase Inhibitor) Family History Mother COPD (chronic obstructive pulmonary disease) Father CAD (coronary artery disease) Heart disease Surgical History Hx of cystoscopy Hx of colonoscopy Hx of left cataract extraction Hx of right cataract extraction Social History household members: spouse Smoking Status: Current every day smoker tobacco type: cigarettes alcohol intake: never substance use type: does not use ROS ROS Narrative 10 systems were reviewed with pertinent positives as noted in the HPI above. Physical Exam Const alert, oriented x3 and no apparent distress HEENT normocephalic, head/scalp atraumatic and moist oral mucous membranes Eyes PERRL, EOMs intact bilaterally and conjunctivae normal Neck supple General: trachea midline Chest inspection of chest normal Resp normal respiratory effort and no use of accessory muscles Effort and Inspection: able to speak in complete sentences Auscultation: diminished lung sounds Cardio S1 normal heart sound and S2 normal heart sound Rate: tachycardic GI normal to inspection, nondistended, normoactive bowel sounds Extremity no clubbing, cyanosis or edema Skin Skin Narrative: Wrapped lower extremities. Neuro CN's II-XII intact bilaterally, moves all extremities and no focal motor deficits Psych cooperative and affect normal Lab / Micro Data 04/03/25 05:32 04/03/25 05:32 Labs: Laboratory Results - last 24 hr 04/03/25 00:05: WBC 15.7 H, RBC 3.41 L, Hgb 10.2 L, Hct 32.2 L, MCV 94.4 H, MCH 29.9, MCHC 31.7 L, RDW Std Deviation 45.3 H, RDW Coeff of Humaira 13.2, Plt Count 300, MPV 10.8, Immature Gran % (Auto) 0.600, Neut % (Auto) 76.4 H, Lymph % (Auto) 13.5 L, [place] % (Auto) 7.0, Eos % (Auto) 1.9, Baso % (Auto) 0.6, Absolute Neuts (auto) 12.0 H, Absolute Lymphs (auto) 2.12, Nucleated RBC % 0, PT 13.4, INR 1.0, APTT 37.3 H, D-Dimer Quant (PE/DVT) 1.86 H*, Sodium 139, Potassium 4.4, Chloride 104, Carbon Dioxide 20.8 L, Anion Gap 14, BUN 42 H, Creatinine 1.88 H, Estim Creat Clear Calc 28.20 L, Est GFR (MDRD) Non-Af 35 L, BUN/Creatinine Ratio 22.3 H, Glucose 255 H, Calcium 8.8, Troponin T High Sens 58 H*, NT pro BNP II 6552 H 04/03/25 02:25: Lactic Acid 1.3 04/03/25 02:45: Magnesium 2.3 H, Troponin T Hi Sens 2 Hr 76 H* 04/03/25 04:20: Troponin T Hi Sens 4Hr 80 H* 04/03/25 05:32: WBC 13.0 H, RBC 3.09 L, Hgb 9.3 L, Hct 28.9 L, MCV 93.5, MCH 30.1, MCHC 32.2, RDW Std Deviation 45.9 H, RDW Coeff of Humaira 13.4, Plt Count 268, MPV 11.4, Immature Gran % (Auto) 0.500, Neut % (Auto) 94.8 H, Lymph % (Auto) 3.3 L, [place] % (Auto) 1.1, Eos % (Auto) 0.0, Baso % (Auto) 0.3, Absolute Neuts (auto) 12.4 H, Absolute Lymphs (auto) 0.43 L, Nucleated RBC % 0, Sodium 137, Potassium 4.5, Chloride 104, Carbon Dioxide 15.5 L, Anion Gap 18 H, BUN 44 H, Creatinine 1.77 H, Estim Creat Clear Calc 28.47 L, Est GFR (MDRD) Non-Af 38 L, B UN/Creatinine Ratio 24.6 H, Glucose 428 H, Calcium 7.9, Total Bilirubin 0.38, AST 24, ALT 16, Alkaline Phosphatase 80, Total Protein 6.0, Albumin 3.6, Globulin 2.4, Albumin/Globulin Ratio 1.5, Triglycerides 44, Cholesterol 137, LDL Cholesterol, Calc 80, VLDL Cholesterol 9, HDL Cholesterol 48, Cholesterol/HDL Ratio 2.87, Procalcitonin 0.31 H, TSH 0.530 04/03/25 05:53: POC Glucose 435 H Micro: Microbiology 04/03/25 05:10 Mucosa - Nasopharyngeal Respiratory Panel (PCR) - Final 04/03/25 05:51 Urine, Clean Catch Legionella Antigen - Final 04/03/25 05:51 Urine Catheter - Catheter Streptococcus pneumoniae Antigen (M - Final 04/03/25 00:25 Mucosa - Nose SARS-CoV-2, Influenza & RSV (PCR) - Final ABG Data ABG results: ABG 04/03/25 04/03/25 00:16 05:38 Specimen Type JUANITA ART Sample Site Not entered R Radial pH 7.38 Bicarbonate Actual 17.5 L Total CO2 18 Base Excess -8 L O2 Saturation 96 O2 % 30.0 30.0 ABG pCO2 29.8 L ABG pO2 83 Chris Test Positive VBG pH 7.35 VBG pO2 44 H VBG HCO3 26 VBG Total CO2 27 VBG O2 Sat (Calc) 76 H VBG Base Excess 0 POC Mix VBG pCO2 Pt Tmp 46.6 Respiration Rate 12 O2 Delivery Device BiPAP BiPAP Vent Mode Not entered POC PEEP 10 Peak Inspir Pressure 18 Clinical Comments 18. 10. 30% Imaging Radiology Impression Chest X-Ray 04/03/25 00:30 IMPRESSION: Multifocal airspace opacities of the lungs are more prominent in the perihilar zones and the lower lobes, possibly multifocal congestion and/or pneumonia. Reading Location: [id number] Chest CTA 04/03/25 02:34 IMPRESSION: Mild bilateral pleural effusions. Passive atelectatic airspace disease/airspace consolidations of the lower lobes. Bilateral chronic perihilar interstitial pulmonary thickening with associated mild multifocal ground-glass densities, possibly superimposed pneumonia. Mild diffuse spondylosis. No CT evidence of pulmonary embolus or aortic dissection. [facility] Charges/Coding Visit Charges Inpatient E&M: 57916 Init Hosp L3
--- NOTE | 2025-04-03 10:14 | CASEMGMT ---
FIDEL VALENCIA Assessment Face to Face with patient for initial transition planning/care coordination assessment. FIDEL VALENCIA introduced self and role at [facility], pt voices understanding. Pt is A&Ox4 and is resting comfortably in bed and is calm. Care providers, pharmacy, and demographics verified. Admitting dx: RF. Possible COPD Exacerbation, PNA, and HF Exacerbation LACE Strata: 2 PCP: Ryley Montenegro Specialists: Endocrinology through [facility] (Arthur Ortega ([facility])), Dr. Mayi Terrazas (Cardio - [facility]) Preferred Pharmacy: [facility] Insurance: [employer] [facility] Prescription Benefit: Yes LNOK: Alicejustus Fernandes (W), Karoline Talley (EWA) Living Arrangements: Pt lives with his in a single story home with 2 steps to enter ADLs/IADLs: Pt reports that he is independent but does have some hip and back pain that he deals with. Transportation: Self, . DME: Home oxygen through [employer]. Confirmed current order states 2 LPM VIA NC W/ EXERTION. Pt has a concentrator and a pulse ox. Pt states that he returned his portability and does not currently have any portable oxygen but was supposed to get a portable tank yesterday from [employer]. CM to follow. Pt also reports that he has a BGM with sufficient supplies. Walker. Cane. BP Monitor. Walk-in shower with grab bars and a built in seat. HHC/SNF: Denies history or needs. Pt has been to [facility] for OP PT in the past Tobacco: Pt states that he smokes 1/2 packs of cigarettes per day and is interested in cessation resources. SW notified. Pt?s goal: Home Plan: Home, follow oxygen needs and to f/u with Pulmonary as an OP. At this time, the pt states that he plans to return home with his once he is medically ready. Pt denies the need for HH or OP therapy now but is aware that he can follow up with his PCP to get this ordered. Pt states that he is not and does not want to be home bound for HH. Pt states that he may go to OP therapy again in the future but does not want this now. Pt was also encouraged to follow up with Pulmonary Medicine as an OP. Pt states understanding. Pt denies further questions or concerns at this time. CM to follow. Britton Browne RN, CM
[2025-04-03] MEDS: Albuterol 2.5 MG/3 ML VIAL.NEB. INHALATION (11:06)
[2025-04-03 12:15] LABS: Bedside Glucose > 500 mg/dL (74-106)
[2025-04-03 13:14] LABS: Bedside Glucose > 500 mg/dL (74-106)
[2025-04-03] MEDS: Insulin Lispro 100 UNIT in 0.9% Normal Saline (100mL Bag) 99 ML 6.2 UNIT CONT INF (13:50)
--- NOTE | 2025-04-03 13:52 | PN_ITS ---
Subjective Subjective Patient seen and examined. He was on BiPAP. He admitted to feeling short of breath. He denied any chest pain or palpitations, dizziness, nausea or vomiting or any other symptoms.. Systems otherwise negative. Blood sugars have been poorly controlled. Objective Data Objective Data Vital Signs: Vital Signs Temp Pulse Resp BP Pulse Ox O2 Del Method O2 Flow Rate 98.4 F 95 20 H 119/48 L 99 Bi-pap 2 04/03/25 12:00 04/03/25 12:54 04/03/25 12:00 04/03/25 12:54 04/03/25 12:00 04/03/25 12:00 04/03/25 09:36 FiO2 30 04/03/25 12:00 Oxygen Flow Rate (L/min) 2 Oxygen Delivery Method Bi-pap Weight: 135 lb 9.349 oz Body Mass Index (BMI) 21.2 Intake & Output: Intake and Output for Last 24 Hours 04/01/25 04/02/25 04/03/25 23:59 23:59 23:59 Intake Total 371 / 371 Output Total 350 / 350 Balance Lab / Micro Data 04/03/25 05:32 04/03/25 14:50 Labs: Laboratory Results - last 24 hr 04/03/25 00:05: WBC 15.7 H, RBC 3.41 L, Hgb 10.2 L, Hct 32.2 L, MCV 94.4 H, MCH 29.9, MCHC 31.7 L, RDW Std Deviation 45.3 H, RDW Coeff of Humaira 13.2, Plt Count 300, MPV 10.8, Immature Gran % (Auto) 0.600, Neut % (Auto) 76.4 H, Lymph % (Auto) 13.5 L, [place] % (Auto) 7.0, Eos % (Auto) 1.9, Baso % (Auto) 0.6, Absolute Neuts (auto) 12.0 H, Absolute Lymphs (auto) 2.12, Nucleated RBC % 0, PT 13.4, INR 1.0, APTT 37.3 H, D-Dimer Quant (PE/DVT) 1.86 H*, Sodium 139, Potassium 4.4, Chloride 104, Carbon Dioxide 20.8 L, Anion Gap 14, BUN 42 H, Creatinine 1.88 H, Estim Creat Clear Calc 28.20 L, Est GFR (MDRD) Non-Af 35 L, BUN/Creatinine Ratio 22.3 H, Glucose 255 H, Calcium 8.8, Troponin T High Sens 58 H*, NT pro BNP II 6552 H 04/03/25 02:25: Lactic Acid 1.3 04/03/25 02:45: Magnesium 2.3 H, Troponin T Hi Sens 2 Hr 76 H* 04/03/25 04:20: Troponin T Hi Sens 4Hr 80 H* 04/03/25 05:32: WBC 13.0 H, RBC 3.09 L, Hgb 9.3 L, Hct 28.9 L, MCV 93.5, MCH 30.1, MCHC 32.2, RDW Std Deviation 45.9 H, RDW Coeff of Humaira 13.4, Plt Count 268, MPV 11.4, Immature Gran % (Auto) 0.500, Neut % (Auto) 94.8 H, Lymph % (Auto) 3.3 L, [place] % (Auto) 1.1, Eos % (Auto) 0.0, Baso % (Auto) 0.3, Absolute Neuts (auto) 12.4 H, Absolute Lymphs (auto) 0.43 L, Nucleated RBC % 0, Sodium 137, Potassium 4.5, Chloride 104, Carbon Dioxide 15.5 L, Anion Gap 18 H, BUN 44 H, Creatinine 1.77 H, Estim Creat Clear Calc 28.47 L, Est GFR (MDRD) Non-Af 38 L, B UN/Creatinine Ratio 24.6 H, Glucose 428 H, Calcium 7.9, Total Bilirubin 0.38, AST 24, ALT 16, Alkaline Phosphatase 80, Total Protein 6.0, Albumin 3.6, Globulin 2.4, Albumin/Globulin Ratio 1.5, Triglycerides 44, Cholesterol 137, LDL Cholesterol, Calc 80, VLDL Cholesterol 9, HDL Cholesterol 48, Cholesterol/HDL Ratio 2.87, Procalcitonin 0.31 H, TSH 0.530 04/03/25 05:53: POC Glucose 435 H 04/03/25 11:37: POC Glucose > 500 H* 04/03/25 12:10: APTT 212.0 H* 04/03/25 12:50: POC Glucose > 500 H* Micro: Microbiology 04/03/25 05:46 Wound - Elbow Skin and Soft Tissue MRSA/MSSA (PCR - Final 04/03/25 05:10 Mucosa - Nasopharyngeal Respiratory Panel (PCR) - Final 04/03/25 05:51 Urine, Clean Catch Legionella Antigen - Final 04/03/25 05:51 Urine Catheter - Catheter Streptococcus pneumoniae Antigen (M - Final 04/03/25 00:25 Mucosa - Nose SARS-CoV-2, Influenza & RSV (PCR) - Final ABG Data ABG results: ABG 04/03/25 04/03/25 00:16 05:38 Specimen Type JUANITA ART Sample Site Not entered R Radial pH 7.38 Bicarbonate Actual 17.5 L Total CO2 18 Base Excess -8 L O2 Saturation 96 O2 % 30.0 30.0 ABG pCO2 29.8 L ABG pO2 83 Chris Test Positive VBG pH 7.35 VBG pO2 44 H VBG HCO3 26 VBG Total CO2 27 VBG O2 Sat (Calc) 76 H VBG Base Excess 0 POC Mix VBG pCO2 Pt Tmp 46.6 Respiration Rate 12 O2 Delivery Device BiPAP BiPAP Vent Mode Not entered POC PEEP 10 Peak Inspir Pressure 18 Clinical Comments 18. 10. 30% Radiography Diagnostic Testing: Radiology Impression Chest X-Ray 04/03/25 00:30 IMPRESSION: Multifocal airspace opacities of the lungs are more prominent in the perihilar zones and the lower lobes, possibly multifocal congestion and/or pneumonia. Reading Location: [place] [id number] Chest CTA 04/03/25 02:34 IMPRESSION: Mild bilateral pleural effusions. Passive atelectatic airspace disease/airspace consolidations of the lower lobes. Bilateral chronic perihilar interstitial pulmonary thickening with associated mild multifocal ground-glass densities, possibly superimposed pneumonia. Mild diffuse spondylosis. No CT evidence of pulmonary embolus or aortic dissection. Reading Location: [place] [address] Echocardiogram 04/03/25 05:55 Interpretation Summary Mid to distal anterior septal, inferior septal, inferior and posterior hypokinesis. Estimated LVEF 40%. Stage I diastolic dysfunction. The left atrium is mildly enlarged. Severe mitral annular calcification. Moderate (2+) posteriorly directed mitral valve insufficiency. Right ventricular systolic pressure estimated to be 41 mmHg. Aortic sclerosis, no stenosis. Ordering Physician: Dyana Hwang Performed By: Fiordaliza Edgar RDCS and Student Physical Exam Const alert and oriented x3 Constitutional Narrative: frail, on BIPAP General Appearance: cooperative HEENT normocephalic, moist oral mucous membranes, oropharynx normal and gingiva normal Eyes PERRL and EOMs intact bilaterally Neck no lymphadenopathy and supple Lymph Lymphatic: no lymphadenopathy noted and no lymphedema noted Resp Resp Narrative: moderately diminished breath sounds bilaterally, few crackles bilaterally. On BIPAP. Cardio regular rate, regular rhythm, S1 normal heart sound, S2 normal heart sound and no murmurs GI normal to inspection, nondistended, normoactive bowel sounds, soft to palpation and non-tender Extremity normal capillary refill, no clubbing, cyanosis or edema and no calf tenderness General Extremity: no tenderness to palpation of joints or extremities Skin General Skin Exam: no breakdown Neuro no focal motor deficits and no sensory deficits noted Motor Exam: general weakness Psych thought process normal and cooperative Appearance: appropriate Assessment & Plan Assessment/Plan (1) Acute hypoxic respiratory failure: PLAN: Plan #Acute hypoxic respiratory failure due to acute on chronic COPD examination and probable heart failure as well as superimposed pneumonia * on BIPAP. * sputum cultures pending * breathing treatment with bronchodilators. Titrate oxygen to maintain sats >90% * critical care on board. * 2D echo ordered showed EF of 40% with LV hypokinesis and stage I diastolic dysfunction and RVSP of 41mmHg. * #Elevated cardiac enzymes: initial troponin was 58, and only peaked at 76. #Type 2 diabetes mellitus: on lantus. ISS. Accuchecks ACHS #Hyperlipidemia: on ezetimibe #CKD III: Cr at baseline. 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 #Nicotine dependence: counseled to quit. Nicotine patch prn. DVT prophylaxis: currently on heparin drip. Total time spent on evaluation and management of patient, reviewing chart and specialist notes, discussing plan with patient, discussion with nursing and ancillary staff as well as documentation: 32 mins Charges/Coding Visit Charges Inpatient E&M: 38391 PROLNG IP/OBS E/M EA 15 MIN
--- NOTE | 2025-04-03 14:47 | CASEMGMT ---
SW was informed patient was inquiring about smoking cessation. SW provided patient with information on [facility]'s smoking cessation program. Vidya GUERRA
[2025-04-03 15:24] LABS: Bedside Glucose > 500 mg/dL (74-106)
[2025-04-03 15:24] LABS: Bedside Glucose > 500 mg/dL (74-106)
[2025-04-03 15:53] LABS: Anion Gap 21 (5-15); BUN 58 mg/dL (4-19); BUN/Creat Ratio 21.7 RATIO (10-20); Calcium,Total 8.6 mg/dL (7.6-11.0); Carbon Dioxide 13.6 mmol/L (21.0-32.0); Chloride 98 mmol/L (98-108); Creatinine, Serum 2.67 mg/dL (0.70-1.20); EST Glomerular Filtration Rate 23 (>60); Estimated Creatinine Clearance 18.87 ml/min (50-250); Glucose 638 mg/dL (70-99); Potassium 4.4 mmol/L (3.3-5.1); Sodium Level 133 mmol/L (133-145)
[2025-04-03 16:28] LABS: Bedside Glucose 496 mg/dL (74-106)
--- NOTE | 2025-04-03 16:30 | PCM.CONS.C ---
Assessment & Plan Assessment/Plan (1) Acute hypoxic respiratory failure: PLAN: Patient's acute hypoxic respiratory failure appears to be primarily pulmonary in etiology. However, the patient does have mild LV dysfunction in a segmental fashion with an ejection fraction estimated at 40%. He apparently underwent left heart catheterization a year ago in [place] we will try to obtain those records but from his report he had 2 occluded vessels which would match the segmental dysfunction noted on his echo. These vessels were not amenable to revascularization and he has been treated medically. The patient denies any anginal symptoms his symptoms that presented him to the emergency room was progressive dyspnea on exertion. (2) LV dysfunction: PLAN: The patient is EF is 40% in a segmental fashion. He should be reinstituted on his metoprolol lisinopril and furosemide as tolerated. I will try to obtain records from [place] to see if this is new but it appears to come be consistent with the cath report that he described to me. (3) CKD (chronic kidney disease), stage III: QUALIFIERS: Chronic kidney disease stage 3 subtype: stage 3b (GFR 30-44) Qualified Code(s): N18.32 - Chronic kidney disease, stage 3b PLAN: Patient's GFR on admission was 35. Creatinine is 1.88. Further treatment will be per the primary service. The patient carries a history of stage III chronic kidney disease. (4) HTN (hypertension): QUALIFIERS: Hypertension type: primary hypertension Qualified Code(s): I10 - Essential (primary) hypertension PLAN: Blood pressure is still in the 130 systolic range. As the patient recovers from his pulmonary insufficiency it may be of benefit to switch him from metoprolol to Coreg for better afterload and beta-deepali therapy for his LV dysfunction. PLAN: Plan 1. Will try to obtain cardiovascular records from [place] from last year. 2. Continue current medical therapy. 3. Will follow along with you as the patient recovers from his pulmonary insufficiency we may need to alter his cardiovascular medical therapy. 4. The patient does not routinely see a front desk person by his report. We will be happy to follow him up in the office following discharge if he desires. HPI Consult Data Date of Consult: 04/03/25 HPI Narrative Reason for Consultation: Acute respiratory failure with LV dysfunction. HPI Narrative: SERENA ARMANDO, is a 79 M who presents with acute respiratory failure requiring ventilatory support with CPAP/BiPAP. Patient had noted increasing dyspnea on exertion and presented to the emergency department for evaluation and was found to be in acute hypoxic respiratory failure. The patient denied any weight gain he does carry history of diabetes hyperlipidemia hypertension coronary artery disease anemia and chronic kidney disease. His creatinine was 1.88 with a GFR of 35 on admission. Troponins were 58 and 76 [address]NP was [address] was negative for a PE but did suggest pulmonary infectious process. An echocardiogram performed which showed the 40% ejection fraction with segmental wall motion abnormality in the mid to distal anterior wall and inferior posterior fuentes. The patient reports to me that last year he underwent left heart catheterization in [place] and that revealed 2 blocked arteries that had natural bypasses build up around him and he was treated medically. The patient specifically denies any chest pain. He denies any lower extremity edema. The patient's complaint was really dyspnea on exertion. He is now being treated with IV antibiotics and ventilatory support. The patient is DNR [facility]. [facility] Medical History (Updated 04/03/25 @ 16:[address] Breezy Campbell MD) Chronic anemia Tobacco use COPD (chronic obstructive pulmonary disease) HLD (hyperlipidemia) HTN (hypertension) BPH (benign prostatic hyperplasia) Chronic low back pain with sciatica Diabetes mellitus, type 2 CKD (chronic kidney disease), stage III Pneumonia COVID Wears glasses Wears dentures Home Medications ?Medication ?Instructions ?Recorded ?Last Taken ?Type amlodipine 10 mg tablet (Norvasc) 10 mg PO 1200 08/05/21 08/12/21 History aspirin 81 mg tablet,delayed 81 mg PO DAILY 08/05/21 Unknown History release insulin glargine 100 unit/mL (3 15 unit subcut QPM 08/05/21 Unknown History mL) subcutaneous pen (Lantus Solostar U-100 Insulin) insulin lispro 100 unit/mL 0 unit subcut TID SLIDING SCALE 08/05/21 Unknown History subcutaneous pen tamsulosin 0.4 mg capsule (Flomax) 0.4 mg PO .COMPLEX urination 08/05/21 Unknown History ezetimibe 10 mg tablet 10 mg PO DAILY 04/06/24 Unknown History lisinopril 5 mg tablet 5 mg PO DAILY 04/06/24 Unknown History metoprolol succinate 25 mg 25 mg PO DAILY 04/06/24 Unknown History tablet,extended release 24 hr blood sugar diagnostic (Contour 11/12/24 Unknown History Next Test Strips) potassium chloride 20 mEq 20 meq PO BIDCM 30 days #60 tabs 09/14/24 Unknown Rx tablet,extended release(part/cryst) furosemide 40 mg tablet (Lasix) 40 mg PO DAILY 04/03/25 Unknown History hydralazine 50 mg tablet 50 mg PO Q8H 04/03/25 Unknown History Allergy/AdvReac Type Severity Reaction Status Date / Time Corticosteroids AdvReac Other Verified 04/03/25 00:16 (Glucocorticoids) (steroids) Zuwxkvq-YFY-ZxW Reductase AdvReac Other Verified 04/03/25 00:16 Inhibitor (Bldrsxj-Kzt-Crv Reductase Inhibitor) Family History Mother COPD (chronic obstructive pulmonary disease) Father CAD (coronary artery disease) Heart disease Surgical History Hx of cystoscopy Hx of colonoscopy Hx of left cataract extraction Hx of right cataract extraction Social History household members: spouse Smoking Status: Current every day smoker tobacco type: cigarettes alcohol intake: never substance use type: does not use ROS Review of Systems ROS Unobtainable: other Details: Difficult to discuss given BiPAP machine. Constitutional Constitutional: Reports as per HPI Eyes Eyes: Reports systems reviewed and no addt'l complaints, except as documented ENT HEENT: Reports systems reviewed and no addt'l complaints, except as documented Cardiovascular Cardiovascular: Reports as per HPI Respiratory/Chest Respiratory/Chest: Reports as per HPI Gastrointestinal Gastrointestinal: Reports systems reviewed and no addt'l complaints, except as documented Genitourinary Genitourinary: Reports systems reviewed and no addt'l complaints, except as documented Musculoskeletal Musculoskeletal: Reports systems reviewed and no addt'l complaints, except as documented Integumentary Integumentary: Reports systems reviewed and no addt'l complaints, except as documented Neurologic Neurologic: Reports systems reviewed and no addt'l complaints, except as documented Psychiatric Psychiatric: Reports systems reviewed and no addt'l complaints, except as documented Hematologic/Lymphatic Hematologic/Lymphatic: Reports systems reviewed and no addt'l complaints, except as documented Allergic/Immunologic Allergic/Immunologic: Reports systems reviewed and no addt'l complaints, except as documented Physical Exam Narrative Patient currently on ventilatory support with BiPAP. Const alert and oriented x3 HEENT normocephalic Eyes EOMs intact bilaterally Neck no JVD Carotids: Negative for bruit Resp normal respiratory effort Auscultation: rales diffuse Cardio Cardio Narrative: Difficult auscultate given respiratory noise. Rate: regular rate Rhythm: regular rhythm Heart Sounds: S1 normal and S2 normal; Negative for click, gallop or murmur GI soft to palpation Extremity no pedal edema Neuro Neuro Narrative: Alert and oriented x 3. Psych mental status grossly normal Risk Stratification Risk Stratification Applicable: Yes Age >/= 65: Yes >/= 3 CAD Risk Factors (HTN, HLD, DM, family hx of CAD, or current smoker): Yes Aspirin Use in the Past 7 Days: Yes Severe Angina (>/= episodes in 24 hours): No EKG ST Changes >/= 0.5mm: No Positive Cardiac Marker: Yes PRACHI Risk Stratification Score: 4 PRACHI % Risk: 20% Risk Charges/Coding Visit Charges Inpatient E&M: 23403 Init Hosp L3 Objective Data Vital Signs: Vital Signs Temp Pulse Resp BP Pulse Ox O2 Del Method O2 Flow Rate 98.4 F 91 19 H 134/57 H 98 Bi-pap 2 04/03/25 12:00 04/03/25 15:27 04/03/25 15:27 04/03/25 15:00 04/03/25 15:00 04/03/25 15:00 04/03/25 09:36 FiO2 30 04/03/25 15:00 Oxygen Flow Rate (L/min) 2 Oxygen Delivery Method Bi-pap Weight: 135 lb 9.349 oz Body Mass Index (BMI) 21.2 Intake & Output: Intake and Output for Last 24 Hours 04/01/25 04/02/25 04/03/25 23:59 23:59 23:59 Intake Total 384.95 / 384.95 Output Total 350 / 350 Balance 34.95 / 34.95 Lab / Micro Data Attestation: I reviewed the patient's lab results. 04/03/25 05:32 04/03/25 14:50 Labs: Laboratory Results - last 24 hr 04/03/25 00:05: WBC 15.7 H, RBC 3.41 L, Hgb 10.2 L, Hct 32.2 L, MCV 94.4 H, MCH 29.9, MCHC 31.7 L, RDW Std Deviation 45.3 H, RDW Coeff of [place] 13.2, Plt Count 300, MPV 10.8, Immature Gran % (Auto) 0.600, Neut % (Auto) 76.4 H, Lymph % (Auto) 13.5 L, [place] % (Auto) 7.0, Eos % (Auto) 1.9, Baso % (Auto) 0.6, Absolute Neuts (auto) 12.0 H, Absolute Lymphs (auto) 2.12, Nucleated RBC % 0, PT 13.4, INR 1.0, APTT 37.3 H, D-Dimer Quant (PE/DVT) 1.86 H*, Sodium 139, Potassium 4.4, Chloride 104, Carbon Dioxide 20.8 L, Anion Gap 14, BUN 42 H, Creatinine 1.88 H, Estim Creat Clear Calc 28.20 L, Est GFR (MDRD) Non-Af 35 L, BUN/Creatinine Ratio 22.3 H, Glucose 255 H, Calcium 8.8, Troponin T High Sens 58 H*, NT pro BNP II 6552 H 04/03/25 02:25: Lactic Acid 1.3 04/03/25 02:45: Magnesium 2.3 H, Troponin T Hi Sens 2 Hr 76 H* 04/03/25 04:20: Troponin T Hi Sens 4Hr 80 H* 04/03/25 05:32: WBC 13.0 H, RBC 3.09 L, Hgb 9.3 L, Hct 28.9 L, MCV 93.5, MCH 30.1, MCHC 32.2, RDW Std Deviation 45.9 H, RDW Coeff of [place] 13.4, Plt Count 268, MPV 11.4, Immature Gran % (Auto) 0.500, Neut % (Auto) 94.8 H, Lymph % (Auto) 3.3 L, [place] % (Auto) 1.1, Eos % (Auto) 0.0, Baso % (Auto) 0.3, Absolute Neuts (auto) 12.4 H, Absolute Lymphs (auto) 0.43 L, Nucleated RBC % 0, Sodium 137, Potassium 4.5, Chloride 104, Carbon Dioxide 15.5 L, Anion Gap 18 H, BUN 44 H, Creatinine 1.77 H, Estim Creat Clear Calc 28.47 L, Est GFR (MDRD) Non-Af 38 L, BUN/Creatinine Ratio 24.6 H, Glucose 428 H, Calcium 7.9, Total Bilirubin 0.38, AST 24, ALT 16, Alkaline Phosphatase 80, Total Protein 6.0, Albumin 3.6, Globulin 2.4, Albumin/Globulin Ratio 1.5, Triglycerides 44, Cholesterol 137, LDL Cholesterol, Calc 80, VLDL Cholesterol 9, HDL Cholesterol 48, Cholesterol/HDL Ratio 2.87, Procalcitonin 0.31 H, TSH 0.530 04/03/25 05:53: POC Glucose 435 H 04/03/25 11:37: POC Glucose > 500 H* 04/03/25 12:10: APTT 212.0 H* 04/03/25 12:50: POC Glucose > 500 H* 04/03/25 13:54: POC Glucose > 500 H* 04/03/25 14:50: Sodium 133, Potassium 4.4, Chloride 98, Carbon Dioxide 13.6 L, Anion Gap 21 H, BUN 58 H, Creatinine 2.67 H, Estim Creat Clear Calc 18.87 L, Est GFR (MDRD) Non-Af 23 L, BUN/Creatinine Ratio 21.7 H, Glucose 638 H*, Calcium 8.6 04/03/25 14:51: POC Glucose > 500 H* 04/03/25 16:04: POC Glucose 496 H* Micro: Microbiology 04/03/25 05:46 Wound - Elbow Skin and Soft Tissue MRSA/MSSA (PCR - Final 04/03/25 05:10 Mucosa - Nasopharyngeal Respiratory Panel (PCR) - Final 04/03/25 05:51 Urine, Clean Catch Legionella Antigen - Final 04/03/25 05:51 Urine Catheter - Catheter Streptococcus pneumoniae Antigen (M - Final 04/03/25 00:25 Mucosa - Nose SARS-CoV-2, Influenza & RSV (PCR) - Final ABG Data ABG results: ABG 04/03/25 04/03/25 00:16 05:38 Specimen Type JUANITA ART Sample Site Not entered R Radial pH 7.38 Bicarbonate Actual 17.5 L Total CO2 18 Base Excess -8 L O2 Saturation 96 O2 % 30.0 30.0 ABG pCO2 29.8 L ABG pO2 83 Chris Test Positive VBG pH 7.35 VBG pO2 44 H VBG HCO3 26 VBG Total CO2 27 VBG O2 Sat (Calc) 76 H VBG Base Excess 0 POC Mix VBG pCO2 Pt Tmp 46.6 Respiration Rate 12 O2 Delivery Device BiPAP BiPAP Vent Mode Not entered POC PEEP 10 Peak Inspir Pressure 18 Clinical Comments 18. 10. 30% Rhythm Strip Rhythm Strip: Sinus Rhythm Rate: 92 Cardiology Labs/Tests 04/03/25 00:05: WBC 15.7 H, RBC 3.41 L, Hgb 10.2 L, Hct 32.2 L, MCV 94.4 H, MCH 29.9, MCHC 31.7 L, Plt Count 300, MPV 10.8, Immature Gran % (Auto) 0.600, Neut % (Auto) 76.4 H, Lymph % (Auto) 13.5 L, [place] % (Auto) 7.0, Eos % (Auto) 1.9, Baso % (Auto) 0.6, Absolute Neuts (auto) 12.0 H, Nucleated RBC % 0, PT 13.4, INR 1.0, APTT 37.3 H, D-Dimer Quant (PE/DVT) 1.86 H*, Sodium 139, Potassium 4.4, Chloride 104, Carbon Dioxide 20.8 L, Anion Gap 14, BUN 42 H, Creatinine 1.88 H, Est GFR (MDRD) Non-Af 35 L, BUN/Creatinine Ratio 22.3 H, Glucose 255 H, Calcium 8.8 04/03/25 00:16: VBG pH 7.35, VBG pO2 44 H, VBG HCO3 26, VBG O2 Sat (Calc) 76 H, VBG Base Excess 0 04/03/25 02:25: Lactic Acid 1.3 04/03/25 02:45: Magnesium 2.3 H 04/03/25 05:32: WBC 13.0 H, RBC 3.09 L, Hgb 9.3 L, Hct 28.9 L, MCV 93.5, MCH 30.1, MCHC 32.2, Plt Count 268, MPV 11.4, Immature Gran % (Auto) 0.500, Neut % (Auto) 94.8 H, Lymph % (Auto) 3.3 L, [place] % (Auto) 1.1, Eos % (Auto) 0.0, Baso % (Auto) 0.3, Absolute Neuts (auto) 12.4 H, Nucleated RBC % 0, Sodium 137, Potassium 4.5, Chloride 104, Carbon Dioxide 15.5 L, Anion Gap 18 H, BUN 44 H, Creatinine 1.77 H, Est GFR (MDRD) Non-Af 38 L, BUN/Creatinine Ratio 24.6 H, Glucose 428 H, Calcium 7.9, Total Bilirubin 0.38, Triglycerides 44, Cholesterol 137, VLDL Cholesterol 9, HDL Cholesterol 48, Cholesterol/HDL Ratio 2.87 04/03/25 05:38: pH 7.38, Bicarbonate Actual 17.5 L, Base Excess -8 L, O2 Saturation 96, ABG pCO2 29.8 L, ABG pO2 83, Chris Test Positive 04/03/25 12:10: APTT 212.0 H* 04/03/25 14:50: Sodium 133, Potassium 4.4, Chloride 98, Carbon Dioxide 13.6 L, Anion Gap 21 H, BUN 58 H, Creatinine 2.67 H, Est GFR (MDRD) Non-Af 23 L, BUN/Creatinine Ratio 21.7 H, Glucose 638 H*, Calcium 8.6 Rhythm: EKG: ECHO: Stress Test: Cardiac Cath: PCI: CT Surgery: Holter monitor: EPS: PPM: CXR: Chest CT Scan: Radiography Diagnostic Testing: Radiology Impression Chest X-Ray 04/03/25 00:30 IMPRESSION: Multifocal airspace opacities of the lungs are more prominent in the perihilar zones and the lower lobes, possibly multifocal congestion and/or pneumonia. Reading Location: [place] [address] Chest CTA 04/03/25 02:34 IMPRESSION: Mild bilateral pleural effusions. Passive atelectatic airspace disease/airspace consolidations of the lower lobes. Bilateral chronic perihilar interstitial pulmonary thickening with associated mild multifocal ground-glass densities, possibly superimposed pneumonia. Mild diffuse spondylosis. No CT evidence of pulmonary embolus or aortic dissection. Reading Location: [place] [address] Echocardiogram 04/03/25 05:55 Interpretation Summary Mid to distal anterior septal, inferior septal, inferior and posterior hypokinesis. Estimated LVEF 40%. Stage I diastolic dysfunction. The left atrium is mildly enlarged. Severe mitral annular calcification. Moderate (2+) posteriorly directed mitral valve insufficiency. Right ventricular systolic pressure estimated to be 41 mmHg. Aortic sclerosis, no stenosis. Ordering Physician: Dyana Hwang Performed By: Fiordaliza Edgar RDCS and Student
[2025-04-03] MEDS: Tamsulosin HCl 0.4 MG Capsule PO (16:45)
[2025-04-03 17:40] LABS: Bedside Glucose 454 mg/dL (74-106)
[2025-04-03 18:29] LABS: Bedside Glucose 363 mg/dL (74-106)
[2025-04-03 20:05] LABS: Anion Gap 18 (5-15); BUN 62 mg/dL (4-19); BUN/Creat Ratio 22.9 RATIO (10-20); Carbon Dioxide 16.9 mmol/L (21.0-32.0); Chloride 100 mmol/L (98-108); Creatinine, Serum 2.73 mg/dL (0.70-1.20); EST Glomerular Filtration Rate 23 (>60); Estimated Creatinine Clearance 18.46 ml/min (50-250); Glucose 407 mg/dL (70-99); Potassium 4.3 mmol/L (3.3-5.1); Sodium Level 135 mmol/L (133-145)
[2025-04-03] MEDS: Azithromycin 500 MG in 0.9% Normal Saline (250mL Bag) 250 ML 255 MG IV (21:33)
[2025-04-03] MEDS: 0.9% Saline Lock 10 ML Syringe IV (21:38)
[2025-04-03] MEDS: Heparin Injection (Vial) 5,000 UNIT/ML VIAL 5000 UNIT SC (21:38)
[2025-04-03] MEDS: Dext 5%-0.45% NS 1,000 ML 60 ML IV (23:16)
[2025-04-03 23:55] LABS: Anion Gap 16 (5-15); BUN 66 mg/dL (4-19); BUN/Creat Ratio 21.7 RATIO (10-20); Calcium,Total 8.5 mg/dL (7.6-11.0); Carbon Dioxide 17.3 mmol/L (21.0-32.0); Chloride 102 mmol/L (98-108); Creatinine, Serum 3.02 mg/dL (0.70-1.20); EST Glomerular Filtration Rate 20 (>60); Estimated Creatinine Clearance 16.69 ml/min (50-250); Glucose 275 mg/dL (70-99); Potassium 4.5 mmol/L (3.3-5.1); Sodium Level 136 mmol/L (133-145)
[2025-04-04] VITALS (31 sets, daily range): BP systolic 82–125; BP diastolic 37–114; PULSE 76–93; RESP 13–20; TEMP 36.5–37; O2SAT 92–100; BMI 21.4
[2025-04-04 00:24] LABS: Bedside Glucose 250 mg/dL (74-106)
[2025-04-04 00:24] LABS: Bedside Glucose 284 mg/dL (74-106)
[2025-04-04 00:24] LABS: Bedside Glucose 235 mg/dL (74-106)
[2025-04-04 00:24] LABS: Bedside Glucose 366 mg/dL (74-106)
[2025-04-04 00:24] LABS: Bedside Glucose 261 mg/dL (74-106)
[2025-04-04 00:24] LABS: Bedside Glucose 317 mg/dL (74-106)
[2025-04-04 03:24] LABS: Absolute Lymphocyte Count 1.08 X10^3/uL (0.83-4.51); Absolute Neutrophil Count 19.9 X10^3/uL (2.0-7.7); Basophil# 0.03 X10^3/uL; Basophil% 0.1 % (0-1); Hematocrit 22.8 % (40-54); Hemoglobin 7.4 g/dL (13.0-16.5); Lymphocyte # 1.08 X10^3/ul (0.83-4.51); Lymphocyte % 4.9 % (19-41); Mean Corp Hgb Conc 32.5 g/dL (32-36); Mean Corpuscular Volume 92.3 fL (80-94); Mean Platelet Vol. 11.4 fl (6.2-12.0); Monocyte# 0.88 X10^3/uL; NRBC Flagged by Analyzer 0 % (0-5); Neutrophil # 19.85 X10^3/uL (2.7-7.7); Neutrophil % 90.4 % (47-70); Platelet Count 230 K/mm3 (150-450); RBC Distribution Width CV 13.6 % (11.6-14.6); RBC Distribution Width SD 45.9 fl (35.1-43.9); Red Blood Count 2.47 M/mm3 (4.6-6.2)
[2025-04-04 04:38] LABS: Anion Gap 15 (5-15); BUN 69 mg/dL (4-19); BUN/Creat Ratio 21.1 RATIO (10-20); Calcium,Total 8.6 mg/dL (7.6-11.0); Carbon Dioxide 17.8 mmol/L (21.0-32.0); Chloride 103 mmol/L (98-108); Creatinine, Serum 3.26 mg/dL (0.70-1.20); EST Glomerular Filtration Rate 18 (>60); Estimated Creatinine Clearance 15.61 ml/min (50-250); Glucose 203 mg/dL (70-99); Potassium 4.6 mmol/L (3.3-5.1); Sodium Level 136 mmol/L (133-145)
[2025-04-04] MEDS: Heparin Injection (Vial) 5,000 UNIT/ML VIAL 5000 UNIT SC ×3 (05:39→22:03)
[2025-04-04] MEDS: Ipratropium/Albuterol Sulfate 3 ML AMPUL.NEB INHALATION ×3 (06:46→19:01)
[2025-04-04 07:36] LABS: Anion Gap 15 (5-15); BUN 70 mg/dL (4-19); Calcium,Total 8.7 mg/dL (7.6-11.0); Carbon Dioxide 17.5 mmol/L (21.0-32.0); Chloride 104 mmol/L (98-108); Creatinine, Serum 3.34 mg/dL (0.70-1.20); EST Glomerular Filtration Rate 18 (>60); Estimated Creatinine Clearance 15.24 ml/min (50-250); Glucose 208 mg/dL (70-99); Sodium Level 137 mmol/L (133-145)
[2025-04-04 08:22] LABS: Bedside Glucose 178 mg/dL (74-106)
[2025-04-04 08:22] LABS: Bedside Glucose 229 mg/dL (74-106)
[2025-04-04 08:22] LABS: Bedside Glucose 174 mg/dL (74-106)
[2025-04-04 08:22] LABS: Bedside Glucose 183 mg/dL (74-106)
[2025-04-04 10:21] LABS: Bedside Glucose 209 mg/dL (74-106)
[2025-04-04 10:21] LABS: Bedside Glucose 164 mg/dL (74-106)
--- NOTE | 2025-04-04 10:28 | PN.CARD_ITS ---
Subjective Subjective Has not been able to obtain records from [facility] for his catheterization within the past 2 years. However I was able to better communicate with the patient he says they told him his left ventricle was not functioning normally and he had 2 blockages that were not amenable to revascularization. The patient is now on nasal cannula he does have some conversational dyspnea when talking to me. Objective Data Vital Signs: Vital Signs Temp Pulse Resp BP Pulse Ox O2 Del Method O2 Flow Rate 98.1 F 82 15 113/50 L 99 Nasal Cannula 3 04/04/25 00:00 04/04/25 07:00 04/04/25 07:00 04/04/25 07:00 04/04/25 07:00 04/04/25 07:00 04/04/25 07:00 FiO2 30 04/03/25 18:45 Oxygen Flow Rate (L/min) 3 Oxygen Delivery Method Nasal Cannula Weight: 136 lb 14.513 oz Body Mass Index (BMI) 21.4 Intake & Output: Intake and Output for Last 24 Hours 04/02/25 04/03/25 04/04/25 23:59 23:59 23:59 Intake Total 713.88 / 713.88 22.95 / 22.95 Output Total 350 / 350 Balance 363.88 / 363.88 22.95 / 22.95 Lab / Micro Data Attestation: I reviewed the patient's lab results. 04/04/25 03:15 04/04/25 06:50 Labs: Laboratory Results - last 24 hr 04/03/25 11:37: POC Glucose > 500 H* 04/03/25 12:10: APTT 212.0 H* 04/03/25 12:50: POC Glucose > 500 H* 04/03/25 13:54: POC Glucose > 500 H* 04/03/25 14:50: Sodium 133, Potassium 4.4, Chloride 98, Carbon Dioxide 13.6 L, A nion Gap 21 H, BUN 58 H, Creatinine 2.67 H, Estim Creat Clear Calc 18.87 L, Est GFR (MDRD) Non-Af 23 L, BUN/Creatinine Ratio 21.7 H, Glucose 638 H*, Calcium 8.6 04/03/25 14:51: POC Glucose > 500 H* 04/03/25 16:04: POC Glucose 496 H* 04/03/25 17:23: POC Glucose 454 H* 04/03/25 18:09: POC Glucose 363 H 04/03/25 18:50: Sodium 135, Potassium 4.3, Chloride 100, Carbon Dioxide 16.9 L, Anion Gap 18 H, BUN 62 H, Creatinine 2.73 H, Estim Creat Clear Calc 18.46 L, Est GFR (MDRD) Non-Af 23 L, BUN/Creatinine Ratio 22.9 H, Glucose 407 H, Calcium 9.0 04/03/25 18:58: POC Glucose 366 H 04/03/25 20:11: POC Glucose 317 H 04/03/25 21:27: POC Glucose 284 H 04/03/25 22:20: POC Glucose 250 H 04/03/25 23:10: Sodium 136, Potassium 4.5, Chloride 102, Carbon Dioxide 17.3 L, Anion Gap 16 H, BUN 66 H, Creatinine 3.02 H, Estim Creat Clear Calc 16.69 L, Est GFR (MDRD) Non-Af 20 L, BUN/Creatinine Ratio 21.7 H, Glucose 275 H, Calcium 8.5 04/03/25 23:12: POC Glucose 261 H 04/04/25 00:03: POC Glucose 235 H 04/04/25 01:02: POC Glucose 229 H 04/04/25 03:15: WBC 22.0 H, RBC 2.47 L, Hgb 7.4 L, Hct 22.8 L, MCV 92.3, MCH 30.0, MCHC 32.5, RDW Std Deviation 45.9 H, RDW Coeff of [place] 13.6, Plt Count 230, MPV 11.4, Immature Gran % (Auto) 0.600, Neut % (Auto) 90.4 H, Lymph % (Auto) 4.9 L, [place] % (Auto) 4.0, Eos % (Auto) 0.0, Baso % (Auto) 0.1, Absolute Neuts (auto) 19.9 H, Absolute Lymphs (auto) 1.08, Nucleated RBC % 0, Sodium 136, Potassium 4.6, Chloride 103, Carbon Dioxide 17.8 L, Anion Gap 15, BUN 69 H, Creatinine 3.26 H, Estim Creat Clear Calc 15.61 L, Est GFR (MDRD) Non-Af 18 L, B UN/Creatinine Ratio 21.1 H, Glucose 203 H, Calcium 8.6 04/04/25 03:17: POC Glucose 174 H 04/04/25 04:12: POC Glucose 178 H 04/04/25 06:04: POC Glucose 183 H 04/04/25 06:50: Sodium 137, Potassium 5.0, Chloride 104, Carbon Dioxide 17.5 L, Anion Gap 15, BUN 70 H, Creatinine 3.34 H, Estim Creat Clear Calc 15.24 L, Est GFR (MDRD) Non-Af 18 L, BUN/Creatinine Ratio 21.0 H, Glucose 208 H, Calcium 8.7 04/04/25 07:44: POC Glucose 209 H 04/04/25 10:02: POC Glucose 164 H Micro: Microbiology 04/03/25 05:46 Wound - Elbow Skin and Soft Tissue MRSA/MSSA (PCR - Final 04/03/25 05:10 Mucosa - Nasopharyngeal Respiratory Panel (PCR) - Final 04/03/25 05:51 Urine, Clean Catch Legionella Antigen - Final 04/03/25 05:51 Urine Catheter - Catheter Streptococcus pneumoniae Antigen (M - Final Rhythm Strip Rhythm Strip: Sinus Rhythm Rate: 86 Cardiology Labs/Tests 04/03/25 12:10: APTT 212.0 H* 04/03/25 14:50: Sodium 133, Potassium 4.4, Chloride 98, Carbon Dioxide 13.6 L, A nion Gap 21 H, BUN 58 H, Creatinine 2.67 H, Est GFR (MDRD) Non-Af 23 L, B UN/Creatinine Ratio 21.7 H, Glucose 638 H*, Calcium 8.6 04/03/25 18:50: Sodium 135, Potassium 4.3, Chloride 100, Carbon Dioxide 16.9 L, Anion Gap 18 H, BUN 62 H, Creatinine 2.73 H, Est GFR (MDRD) Non-Af 23 L, B UN/Creatinine Ratio 22.9 H, Glucose 407 H, Calcium 9.0 04/03/25 23:10: Sodium 136, Potassium 4.5, Chloride 102, Carbon Dioxide 17.3 L, Anion Gap 16 H, BUN 66 H, Creatinine 3.02 H, Est GFR (MDRD) Non-Af 20 L, B UN/Creatinine Ratio 21.7 H, Glucose 275 H, Calcium 8.5 04/04/25 03:15: WBC 22.0 H, RBC 2.47 L, Hgb 7.4 L, Hct 22.8 L, MCV 92.3, MCH 30.0, MCHC 32.5, Plt Count 230, MPV 11.4, Immature Gran % (Auto) 0.600, Neut % (Auto) 90.4 H, Lymph % (Auto) 4.9 L, [place] % (Auto) 4.0, Eos % (Auto) 0.0, Baso % (Auto) 0.1, Absolute Neuts (auto) 19.9 H, Nucleated RBC % 0, Sodium 136, Potassium 4.6, Chloride 103, Carbon Dioxide 17.8 L, Anion Gap 15, BUN 69 H, C reatinine 3.26 H, Est GFR (MDRD) Non-Af 18 L, BUN/Creatinine Ratio 21.1 H, G lucose 203 H, Calcium 8.6 04/04/25 06:50: Sodium 137, Potassium 5.0, Chloride 104, Carbon Dioxide 17.5 L, Anion Gap 15, BUN 70 H, Creatinine 3.34 H, Est GFR (MDRD) Non-Af 18 L, B UN/Creatinine Ratio 21.0 H, Glucose 208 H, Calcium 8.7 Rhythm: EKG: ECHO: Stress Test: Cardiac Cath: PCI: CT Surgery: Holter monitor: EPS: PPM: CXR: Chest CT Scan: Radiography Diagnostic Testing: Radiology Impression Echocardiogram 04/03/25 05:55 Interpretation Summary Mid to distal anterior septal, inferior septal, inferior and posterior hypokinesis. Estimated LVEF 40%. Stage I diastolic dysfunction. The left atrium is mildly enlarged. Severe mitral annular calcification. Moderate (2+) posteriorly directed mitral valve insufficiency. Right ventricular systolic pressure estimated to be 41 mmHg. Aortic sclerosis, no stenosis. Ordering Physician: Dyana Hwang Performed By: Fiordaliza Edgar RDCS and Student Physical Exam Const alert and oriented x3 HEENT normocephalic Eyes EOMs intact bilaterally Neck no JVD Neck Narrative: No JVD at 90 degrees Resp normal respiratory effort Auscultation: diminished lung sounds bilateral lower Cardio Rate: regular rate Rhythm: regular rhythm Heart Sounds: S1 normal and S2 normal; Negative for click, gallop or murmur Extremity no pedal edema Neuro Neuro Narrative: Alert and oriented x 3 Psych mental status grossly normal Assessment & Plan Assessment/Plan (1) LV dysfunction: PLAN: The patient carries a history of eject fraction of 40% by echo this admission. He reports to me he was told his heart muscle did not function normally had a catheterization within the last 2 years at [facility]. He also had 2 blockages that were not amenable to revascularization. The patient denies any anginal symptoms. He has no lower extremity edema he has no JVD at 90 degrees. His creatinine is slowly climbing and this may suggest that he is relatively intravascularly depleted. Agree with holding his diuretic therapy for the time being. Agree with the other current medical regiment for his LV dysfunction with his hydralazine. (2) CKD (chronic kidney disease), stage III: QUALIFIERS: Chronic kidney disease stage 3 subtype: stage 3b (GFR 30-44) Qualified Code(s): N18.32 - Chronic kidney disease, stage 3b PLAN: Creatinine continues to climb slowly is up to 3 today. Further management per the primary service. It does not appear that his LV ejection fraction of 40% would be the sole etiology of this decline in his renal function. (3) HTN (hypertension): QUALIFIERS: Hypertension type: primary hypertension Qualified Code(s): I10 - Essential (primary) hypertension PLAN: Blood pressure is adequately controlled on his current medical therapy. (4) Anemia: QUALIFIERS: Anemia type: unspecified type Qualified Code(s): D 64.9 - Anemia, unspecified PLAN: Patient's hemoglobin is 7.4 today. I recommend considering transfusing him up to above 8 for assistance with his LV dysfunction and respiratory status. Will defer to the primary service. PLAN: Plan 1. Agree with can continuing the current medical plan. 2. Consider transfusing given his hemoglobin of 7.4. 3. Dr. Martin will be available if further consultation is necessary. 4. Once the patient is discharged if he wishes to follow-up with cardiology, he has not in the past, would be willing to see him in the [facility] in 7 to 10 days after discharge. Charges/Coding Visit Charges Inpatient E&M: 42467 Subs Hosp L3
[2025-04-04] MEDS: Aspirin E.C. 81 MG Tablet PO (10:50)
[2025-04-04] MEDS: Potassium Chloride Oral Tablet 20 MEQ PO ×2 (10:50→16:42)
[2025-04-04] MEDS: Insulin Glargine-YFGN 100 UNIT/ML Pen 15 UNIT SC (10:55)
[2025-04-04] MEDS: Metoprolol(XL)Succ 25 MG Tablet PO (10:55)
[2025-04-04] MEDS: Ezetimibe 10 MG Tablet PO (10:55)
--- NOTE | 2025-04-04 11:21 | PCM.PROGNOTE ---
Subjective Subjective Patient seen and examined. He is feeling much better today. He is on 3L of oxygen by nasal canula. WBC today is 22, and Hb is 7.4. He feels his breathing has improved. Review of systems is otherwise negative. Objective Data Objective Data Vital Signs: Vital Signs Temp Pulse Resp BP Pulse Ox O2 Del Method O2 Flow Rate 98.2 F 93 20 H 125/114 H 99 Nasal Cannula 3 04/04/25 08:00 04/04/25 11:00 04/04/25 11:00 04/04/25 11:00 04/04/25 11:00 04/04/25 11:00 04/04/25 11:00 FiO2 30 04/03/25 18:45 Oxygen Flow Rate (L/min) 3 Oxygen Delivery Method Nasal Cannula Weight: 136 lb 14.513 oz Body Mass Index (BMI) 21.4 Intake & Output: Intake and Output for Last 24 Hours 04/02/25 04/03/25 04/04/25 23:59 23:59 23:59 Intake Total 713.88 / 713.88 22.95 / 22.95 Output Total 350 / 350 Balance 363.88 / 363.88 22.95 / 22.95 Lab / Micro Data 04/04/25 03:15 04/04/25 06:50 Labs: Laboratory Results - last 24 hr 04/03/25 11:37: POC Glucose > 500 H* 04/03/25 12:10: APTT 212.0 H* 04/03/25 12:50: POC Glucose > 500 H* 04/03/25 13:54: POC Glucose > 500 H* 04/03/25 14:50: Sodium 133, Potassium 4.4, Chloride 98, Carbon Dioxide 13.6 L, Anion Gap 21 H, BUN 58 H, Creatinine 2.67 H, Estim Creat Clear Calc 18.87 L, Est GFR (MDRD) Non-Af 23 L, BUN/Creatinine Ratio 21.7 H, Glucose 638 H*, Calcium 8.6 04/03/25 14:51: POC Glucose > 500 H* 04/03/25 16:04: POC Glucose 496 H* 04/03/25 17:23: POC Glucose 454 H* 04/03/25 18:09: POC Glucose 363 H 04/03/25 18:50: Sodium 135, Potassium 4.3, Chloride 100, Carbon Dioxide 16.9 L, Anion Gap 18 H, BUN 62 H, Creatinine 2.73 H, Estim Creat Clear Calc 18.46 L, Est GFR (MDRD) Non-Af 23 L, BUN/Creatinine Ratio 22.9 H, Glucose 407 H, Calcium 9.0 04/03/25 18:58: POC Glucose 366 H 04/03/25 20:11: POC Glucose 317 H 04/03/25 21:27: POC Glucose 284 H 04/03/25 22:20: POC Glucose 250 H 04/03/25 23:10: Sodium 136, Potassium 4.5, Chloride 102, Carbon Dioxide 17.3 L, Anion Gap 16 H, BUN 66 H, Creatinine 3.02 H, Estim Creat Clear Calc 16.69 L, Est GFR (MDRD) Non-Af 20 L, BUN/Creatinine Ratio 21.7 H, Glucose 275 H, Calcium 8.5 04/03/25 23:12: POC Glucose 261 H 04/04/25 00:03: POC Glucose 235 H 04/04/25 01:02: POC Glucose 229 H 04/04/25 03:15: WBC 22.0 H, RBC 2.47 L, Hgb 7.4 L, Hct 22.8 L, MCV 92.3, MCH 30.0, MCHC 32.5, RDW Std Deviation 45.9 H, RDW Coeff of Humaira 13.6, Plt Count 230, MPV 11.4, Immature Gran % (Auto) 0.600, Neut % (Auto) 90.4 H, Lymph % (Auto) 4.9 L, Jennings % (Auto) 4.0, Eos % (Auto) 0.0, Baso % (Auto) 0.1, Absolute Neuts (auto) 19.9 H, Absolute Lymphs (auto) 1.08, Nucleated RBC % 0, Sodium 136, Potassium 4.6, Chloride 103, Carbon Dioxide 17.8 L, Anion Gap 15, BUN 69 H, Creatinine 3.26 H, Estim Creat Clear Calc 15.61 L, Est GFR (MDRD) Non-Af 18 L, BUN/Creatinine Ratio 21.1 H, Glucose 203 H, Calcium 8.6 04/04/25 03:17: POC Glucose 174 H 04/04/25 04:12: POC Glucose 178 H 04/04/25 06:04: POC Glucose 183 H 04/04/25 06:50: Sodium 137, Potassium 5.0, Chloride 104, Carbon Dioxide 17.5 L, Anion Gap 15, BUN 70 H, Creatinine 3.34 H, Estim Creat Clear Calc 15.24 L, Est GFR (MDRD) Non-Af 18 L, BUN/Creatinine Ratio 21.0 H, Glucose 208 H, Calcium 8.7 04/04/25 07:44: POC Glucose 209 H 04/04/25 10:02: POC Glucose 164 H Micro: Microbiology 04/03/25 05:46 Wound - Elbow Skin and Soft Tissue MRSA/MSSA (PCR - Final 04/03/25 05:10 Mucosa - Nasopharyngeal Respiratory Panel (PCR) - Final 04/03/25 05:51 Urine, Clean Catch Legionella Antigen - Final 04/03/25 05:51 Urine Catheter - Catheter Streptococcus pneumoniae Antigen (M - Final 04/03/25 00:25 Mucosa - Nose SARS-CoV-2, Influenza & RSV (PCR) - Final Radiography Diagnostic Testing: Radiology Impression Echocardiogram 04/03/25 05:55 Interpretation Summary Mid to distal anterior septal, inferior septal, inferior and posterior hypokinesis. Estimated LVEF 40%. Stage I diastolic dysfunction. The left atrium is mildly enlarged. Severe mitral annular calcification. Moderate (2+) posteriorly directed mitral valve insufficiency. Right ventricular systolic pressure estimated to be 41 mmHg. Aortic sclerosis, no stenosis. Ordering Physician: Dyana Hwang Performed By: Fiordaliza Edgar RDCS and Student Rhythm Strip Rhythm Strip: Sinus Rhythm Rate: 86 Physical Exam Const alert and oriented x3 Constitutional Narrative: looks much better, on 3L of oxygen by nasal canula. General Appearance: cooperative HEENT normocephalic, moist oral mucous membranes, oropharynx normal and gingiva normal Eyes PERRL and EOMs intact bilaterally Neck no lymphadenopathy and supple Lymph Lymphatic: no lymphadenopathy noted and no lymphedema noted Resp Resp Narrative: moderately diminished breath sounds bilaterally, on 3L of oxygen by nasal canula. Cardio regular rate, regular rhythm, S1 normal heart sound, S2 normal heart sound and no murmurs GI normal to inspection, nondistended, normoactive bowel sounds, soft to palpation and non-tender Extremity normal capillary refill, no clubbing, cyanosis or edema and no calf tenderness General Extremity: no tenderness to palpation of joints or extremities Skin General Skin Exam: no breakdown Neuro CN's II-XII intact bilaterally, no focal motor deficits and no sensory deficits noted Motor Exam: general weakness Psych thought process normal and cooperative Appearance: appropriate Assessment & Plan Assessment/Plan (1) Acute hypoxic respiratory failure: PLAN: Plan #Acute hypoxic respiratory failure due to acute on chronic COPD examination and probable heart failure as well as superimposed pneumonia on BIPAP. sputum cultures pending. Urine for strep and legionella negative. Respiratory panel negative. breathing treatment with bronchodilators. Titrate oxygen to maintain sats >90% critical care on board. 2D echo ordered showed EF of 40% with LV hypokinesis and stage I diastolic dysfunction and RVSP of 41mmHg. cardiolopgy consulted. Per cardiology he had a cardiac cath 2 years ago at [place] and was told he had 2 blockages which were not amenable to revascularization. Records requested from [place]. Further management as per cardiology. #Elevated cardiac enzymes: initial troponin was 58, and only peaked at 76. 2D echo as above. Further records requested from [place] as above cardiology on board #MADONNA on CKD III: Cr today is up to 3.34 WIll consult nephrology. lasix on hold. Hold any other nephrotoxic meds. insert osborne catheter #Leukocytosis: WBCs 22 today. Likely due to IV steroid she is receiving. Will monitor.. Switch to PO prednisone. #Type 2 diabetes mellitus: on lantus. ISS. Accuchecks ACHS #Hyperlipidemia: on ezetimibe #CKD III: Cr at baseline. Will monitor closely #Nicotine dependence: counseled to quit. Nicotine patch prn. DVT prophylaxis: heparin sq. Charges/Coding Visit Charges Inpatient E&M: 32000 Subs Hosp L3
--- NOTE | 2025-04-04 11:33 | US_ITS ---
PROCEDURE: KIDNEY AND BLADDER 04/04/2025 REASON FOR EXAM: MADONNA ON CKD III TECHNIQUE: Renal and urinary bladder ultrasound with grayscale and color Doppler. COMPARISON: Renal ultrasound 09/12/2024 FINDINGS: The right kidney measures 8.3 x 3.3 x 4.8 cm and demonstrates mild diffuse renal cortical thinning, with cortex thickness of 0.9 cm. Cortical echogenicity is not significantly increased. No hydronephrosis. The left kidney measures 9.9 x 5.3 x 4.6 cm, also with mild cortical thinning with thickness of 1.1 cm. Cortical echogenicity is not significantly increased. There is an echogenic focus with twinkle artifact in the lower pole of the left kidney measuring 0.5 cm, unchanged. No hydronephrosis. Urinary bladder is unremarkable with a wall thickness of 3 mm. The left ureteral jet is visualized, the right is not. The prostate measures 4.8 x 3.5 x 5.2 cm and contains an echogenic nodule measuring 1.9 cm, similar to prior. US/Kidney and Bladder IMPRESSION: 1. Mild renal cortical thinning bilaterally. No hydronephrosis. 2. Nonobstructing stone in the left kidney measuring 0.5 cm, unchanged. 3. Prostatomegaly with an echogenic nodule measuring 1.9 cm, similar to prior. Correlate with PSA. Reading Location: [id number]
[2025-04-04] MEDS: amLODIPine 10 MG Tablet PO (12:12)
--- NOTE | 2025-04-04 12:57 | PN.CC_ITS ---
Objective Data Objective Data Vital Signs: Vital Signs Last response 3 Temperature 36.8 C 04/04/25 08:00 Temperature Source Temporal 04/04/25 08:00 Pulse Rate 85 04/04/25 11:31 Respiratory Rate 18 04/04/25 11:31 Respiratory Effort Normal, Non-Labored 04/04/25 08:00 Respiratory Depth Normal 04/04/25 08:00 Respiratory Pattern Normal 04/04/25 11:31 Blood Pressure 125/114 H 04/04/25 11:00 Blood Pressure Mean 117 04/04/25 11:00 Blood Pressure Source Monitor 04/04/25 11:00 Blood Pressure Position Semi-Fowlers 04/04/25 11:00 Blood Pressure Location Right Arm 04/04/25 11:00 Pulse Ox 99 04/04/25 11:00 Oxygen Delivery Method Nasal Cannula 04/04/25 11:00 Oxygen Flow Rate (L/min) 3 04/04/25 11:01 Fraction of Inspired Oxygen (FIO2) 30 04/03/25 18:45 I&O: I&O Last 24 Hours 3 04/03/25 04/04/25 04/04/25 23:59 11:59 23:59 Intake Total 408.88 / 713.88 22.95 / 22.95 Output Total 350 / 350 Balance 58.88 / 363.88 22.95 / 22.95 I&O: Total Stay 3 04/02/25 23:59 thru 04/04/25 11:45 Intake Total 736.83 Output Total 350 Balance 386.83 Current Meds Ordered / Administered: Current meds ordered / Administered 3 Generic Name Dose Route Start Last Admin Trade Name Chanq PRN Reason Stop Dose Admin Acetaminophen 650 mg 04/03/25 05:17 Acetaminophen 325 Mg Tablet PO Q4H PRN PRN Fever, pain 1-10 Al Hydroxide/Mg Hydroxide 30 ml 04/03/25 05:17 Mag Hydrox/Al Hydrox/Simeth 30 Ml Udc PO Q6H PRN PRN Gastric Burning Albuterol Sulfate 2.5 mg 04/03/25 05:17 04/03/25 11:06 Albuterol 2.5 Mg/3 Ml Vial.Neb. INHALATION 2.5 mg Q2H PRN PRN Administration Dyspnea, wheezing Albuterol/Ipratropium 3 ml 04/03/25 05:17 04/04/25 11:27 Ipratropium/Albuterol Sulfate 3 Ml Ampul.Neb INHALATION 3 ml Q4HWA.RT DIDI Administration Amlodipine Besylate 10 mg 04/03/25 12:00 04/04/25 12:12 Amlodipine 10 Mg Tablet PO 10 mg 1200 DIDI Administration Protocol Aspirin 81 mg 04/03/25 08:00 04/04/25 10:50 Aspirin E.C. 81 Mg Tablet PO 81 mg BREAKFAST DIDI Administration Ezetimibe 10 mg 04/03/25 10:00 04/04/25 10:55 Ezetimibe 10 Mg Tablet PO 10 mg DAILY DIDI Administration Furosemide 40 mg 04/03/25 10:00 04/03/25 16:45 Furosemide 40 Mg/4 Ml Vial IV 40 mg BID@1000,1800 DIDI Administration Glucagon 1 mg 04/03/25 05:17 Glucagon 1 Mg/Ml Syringe IM X1 PRN HYPOGLYCEMIA Protocol Guaifenesin 10 ml 04/03/25 05:17 Guaifenesin 10 Ml Udc (200mg/10ml) PO Q4H PRN PRN COUGH Heparin Sodium (Porcine) 5,000 unit 04/03/25 22:00 04/04/25 05:39 Heparin Injection (Vial) 5,000 Unit/Ml Vial SC 5,000 unit Q8 DIDI Administration Hydralazine HCl 50 mg 04/03/25 06:00 04/04/25 05:37 Hydralazine 50 Mg Tablet PO Not Given Q8 DIDI Protocol Hydralazine HCl 10 mg 04/03/25 05:17 Hydralazine 20 Mg/Ml Vial IV Q4H PRN PRN SBP > 160 Protocol Azithromycin 500 mg/ Sodium 255 mls @ 255 mls/hr 04/03/25 22:00 04/03/25 22:33 Chloride IV Infused Q24H DIDI Infusion Ceftriaxone Sodium 1 gm in 50 mls @ 100 mls/hr 04/03/25 22:00 04/03/25 23:16 Rocephin IV Infused Q24H DIDI Infusion Dextrose 250 mls @ 0 mls/hr 04/03/25 05:17 Dextrose 10%-Water IV .Q0M PRN HYPOGLYCEMIA Protocol As Directed Sodium Chloride 250 mls @ 15 mls/hr 04/03/25 05:18 IV .[id number] PRN Saline Flush Sodium Chloride 250 mls @ 15 mls/hr 04/03/25 05:18 IV .[id number] PRN Additional IVPB Infusion Dextrose 250 mls @ 999 mls/hr 04/03/25 13:17 Dextrose 10%-Water IV .Q16M PRN Hypoglycemic Protocol Protocol Dextrose/Sodium Chloride 1,000 mls @ 60 mls/hr 04/03/25 22:35 04/03/25 23:16 IV 60 mls/hr .[id number] DIDI Administration Insulin Glargine 15 unit 04/04/25 08:50 04/04/25 10:55 Insulin Glargine-Yfgn 100 Unit/Ml Pen SC 15 unit DAILY DIDI Administration Lisinopril 5 mg 04/03/25 10:00 04/03/25 07:58 Lisinopril 5 Mg Tablet PO 5 mg DAILY DIDI Administration Protocol Melatonin 3 mg 04/03/25 05:17 Melatonin 3 Mg Tablet PO QHS PRN PRN INSOMNIA Metoprolol Succinate 25 mg 04/03/25 10:00 04/04/25 10:55 Metoprolol(Xl)Succ 25 Mg Tablet PO 25 mg DAILY DIDI Administration Protocol Nitroglycerin 0.4 mg 04/03/25 05:17 Nitroglycerin (Inpatient Use) 0.4 Mg Tab.Subl SL Q5M PRN CARDIAC/CHEST PAIN Ondansetron HCl 4 mg 04/03/25 05:17 Ondansetron 4 Mg/2 Ml Vial IV Q8H PRN PRN NAUSEA/VOMITING Potassium Chloride 20 meq 04/03/25 08:00 04/04/25 10:50 Potassium Chloride Oral Tablet 20 Meq PO 20 meq BIDCM DIDI Administration Prednisone 40 mg 04/05/25 08:00 Prednisone 20 Mg Tablet PO 04/10/25 08:01 BREAKFAST DIDI Prochlorperazine Edisylate 5 mg 04/03/25 05:17 Prochlorperazine 10 Mg/2 Ml Vial IV Q4H PRN PRN Breakthrough Nausea/Vomiting Senna/Docusate Sodium 2 tablet 04/03/25 05:17 Senna/Docusate Sodium 1 Tablet PO BID PRN PRN Constipation Sodium Chloride 10 - 40 ml 04/03/25 05:18 04/03/25 21:38 0.9% Saline Lock 10 Ml Syringe IV 10 ml UD PRN Administration SALINE FLUSH Tamsulosin HCl 0.4 mg 04/03/25 17:30 04/03/25 16:45 Tamsulosin Hcl 0.4 Mg Capsule PO 0.4 mg Ayla@[id number] [facility] Administration Lab / Micro Data 04/04/25 03:15 04/04/25 13:45 Labs: Laboratory Results - last 24 hr 04/03/25 12:50: POC Glucose > 500 H* 04/03/25 13:54: POC Glucose > 500 H* 04/03/25 14:50: Sodium 133, Potassium 4.4, Chloride 98, Carbon Dioxide 13.6 L, A nion Gap 21 H, BUN 58 H, Creatinine 2.67 H, Estim Creat Clear Calc 18.87 L, Est GFR (MDRD) Non-Af 23 L, BUN/Creatinine Ratio 21.7 H, Glucose 638 H*, Calcium 8.6 04/03/25 14:51: POC Glucose > 500 H* 04/03/25 16:04: POC Glucose 496 H* 04/03/25 17:23: POC Glucose 454 H* 04/03/25 18:09: POC Glucose 363 H 04/03/25 18:50: Sodium 135, Potassium 4.3, Chloride 100, Carbon Dioxide 16.9 L, Anion Gap 18 H, BUN 62 H, Creatinine 2.73 H, Estim Creat Clear Calc 18.46 L, Est GFR (MDRD) Non-Af 23 L, BUN/Creatinine Ratio 22.9 H, Glucose 407 H, Calcium 9.0 04/03/25 18:58: POC Glucose 366 H 04/03/25 20:11: POC Glucose 317 H 04/03/25 21:27: POC Glucose 284 H 04/03/25 22:20: POC Glucose 250 H 04/03/25 23:10: Sodium 136, Potassium 4.5, Chloride 102, Carbon Dioxide 17.3 L, Anion Gap 16 H, BUN 66 H, Creatinine 3.02 H, Estim Creat Clear Calc 16.69 L, Est GFR (MDRD) Non-Af 20 L, BUN/Creatinine Ratio 21.7 H, Glucose 275 H, Calcium 8.5 04/03/25 23:12: POC Glucose 261 H 04/04/25 00:03: POC Glucose 235 H 04/04/25 01:02: POC Glucose 229 H 04/04/25 03:15: WBC 22.0 H, RBC 2.47 L, Hgb 7.4 L, Hct 22.8 L, MCV 92.3, MCH 30.0, MCHC 32.5, RDW Std Deviation 45.9 H, RDW Coeff of Humaira 13.6, Plt Count 230, MPV 11.4, Immature Gran % (Auto) 0.600, Neut % (Auto) 90.4 H, Lymph % (Auto) 4.9 L, Mccormick % (Auto) 4.0, Eos % (Auto) 0.0, Baso % (Auto) 0.1, Absolute Neuts (auto) 19.9 H, Absolute Lymphs (auto) 1.08, Nucleated RBC % 0, Sodium 136, Potassium 4.6, Chloride 103, Carbon Dioxide 17.8 L, Anion Gap 15, BUN 69 H, Creatinine 3.26 H, Estim Creat Clear Calc 15.61 L, Est GFR (MDRD) Non-Af 18 L, B UN/Creatinine Ratio 21.1 H, Glucose 203 H, Calcium 8.6 04/04/25 03:17: POC Glucose 174 H 04/04/25 04:12: POC Glucose 178 H 04/04/25 06:04: POC Glucose 183 H 04/04/25 06:50: Sodium 137, Potassium 5.0, Chloride 104, Carbon Dioxide 17.5 L, Anion Gap 15, BUN 70 H, Creatinine 3.34 H, Estim Creat Clear Calc 15.24 L, Est GFR (MDRD) Non-Af 18 L, BUN/Creatinine Ratio 21.0 H, Glucose 208 H, Calcium 8.7 04/04/25 07:44: POC Glucose 209 H 04/04/25 10:02: POC Glucose 164 H Micro: Microbiology 04/03/25 05:46 Wound - Elbow Skin and Soft Tissue MRSA/MSSA (PCR - Final Rhythm Strip Rhythm Strip: Sinus Rhythm Rate: 86 Assessment and Plan . Assessment and plan: HPI Patient seen and examined Chart and data reviewed He is in NAD - breathing O2 2-3 LPM at rest Lab reviewed - NT-p-BNP 6600 Diuretics are currently held CT chest reviewed - looks like CHF TTE noted - reduced LVSF, moderate MR, elevated PASP EXAM GEN NAD VS as above HEENT o/p clear NECK obese COR RRR CHEST basilar crackles ABD soft EXT minimal edema SKIN w/d NISREEN NF ASSESSMENT/PLAN 1. Dyspnea / hypoxemia 2. Decompensated CHF w/ edema and effusions 3. Markedly elevated NT-p-BNP 4. Decreased LVSF w/ MR and PAH 5. Tobacco use and possible COPD 6. Anemia -supplemental O2 as needed -would keep in (-) fluid balance - defer to cardiology -inhaled BD and short course steroids -would stop ABX -VTE ppx Critical Care Time: 50 minutes The entirety of this encounter was done via Telemedicine
[2025-04-04 14:44] LABS: Anion Gap 17 (5-15); BUN 77 mg/dL (4-19); BUN/Creat Ratio 20.5 RATIO (10-20); Calcium,Total 8.6 mg/dL (7.6-11.0); Carbon Dioxide 17.2 mmol/L (21.0-32.0); Chloride 101 mmol/L (98-108); Creatinine, Serum 3.74 mg/dL (0.70-1.20); EST Glomerular Filtration Rate 16 (>60); Estimated Creatinine Clearance 13.61 ml/min (50-250); Glucose 226 mg/dL (70-99); Potassium 5.4 mmol/L (3.3-5.1); Sodium Level 134 mmol/L (133-145)
--- NOTE | 2025-04-04 15:18 | CON.PCM.RE_ITS ---
Assessment & Plan Assessment/Plan (1) MADONNA (acute kidney injury): (2) CKD (chronic kidney disease), stage III: QUALIFIERS: Chronic kidney disease stage 3 subtype: stage 3b (GFR 30-44) Qualified Code(s): N18.32 - Chronic kidney disease, stage 3b (3) Acute hypoxic respiratory failure: PLAN: Plan This is an 79-year-old male with past medical history significant for hypertension, CKD stage III (followed by Dr. Solomon in [place]), COPD, diabetes mellitus admitted to the hospital for acute hypoxic respiratory failure, multifactorial from COPD and/or pneumonia and/or possible heart failure contributing. Nephrology consulted in view of elevated creatinine. Baseline creatinine is around 1.8 mg/dL range. Creatinine was 1.8 on admission and today creatinine 3.3. Potassium is 5.0, bicarb 17. Patient had been on insulin drip as glucose was 638. He is now off insulin drip and IV fluids. Lasix has been stopped in view of elevated creatinine. For now we will monitor kidney function without diuretics and or IV fluids. Patient appears near euvolemic on exam. Respiratory status improved, no lower extremity edema. Renal ultrasound ordered and result is pending. Patient did have bladder scan postvoid which showed around 300 mL of urine in bladder, he is declining Henley placement. Patient has been seen by cardiology. Patient had echo this admission EF 40%, stage I diastolic dysfunction. Blood pressure 206/80 on admission, patient had episodes of hypotension with may be contributing to MADONNA, he also had CT of chest with contrast on admission. Lisinopril and Lasix on hold today. At this time there is no acute indication for renal placement therapy. Labs have been ordered for the morning. Further orders forthcoming as hospitalization evolves, thank you for allowing us to participate in the care of Mr. Fernandes. Assessment and plan reviewed with Dr. Thompson. HPI Consult Data Date of Consult: 04/04/25 HPI Narrative HPI Narrative: SERENA FERNANDES, is a 79 M with past medical history significant for hypertension, hyperlipidemia, BPH, diabetes mellitus type 2, COPD who presented to the emergency room on April 03 with complaints of difficulty breathing. Patient had CTA of chest in the emergency room showed mild bilateral pleural effusions, consolidation, possible pneumonia, patient was admitted to ICU on BiPAP. Upon presentation patient did receive Rocephin, azithromycin, Lasix. Nephrology consulted in view of elevated creatinine. Patient reports that he has been following with Dr. Obed Solomon, arch support technician in [place] for history of CKD. Baseline creatinine has been around 1.8 mg/dL range. Patient denies any new medications before hospitalization. Denies any recent nausea, vomiting or diarrhea. Denies any urinary habitus changes. No NSAIDs. [facility] Medical History (Updated 04/04/25 @ 15:23 by AURY Davison) Chronic anemia Tobacco use COPD (chronic obstructive pulmonary disease) HLD (hyperlipidemia) HTN (hypertension) BPH (benign prostatic hyperplasia) Chronic low back pain with sciatica Diabetes mellitus, type 2 CKD (chronic kidney disease), stage III Pneumonia COVID Wears glasses Wears dentures Home Medications ?Medication ?Instructions ?Recorded ?Last Taken ?Type amlodipine 10 mg tablet (Norvasc) 10 mg PO 1200 08/12/21 History aspirin 81 mg tablet,delayed 81 mg PO DAILY 08/05/21 U nknown History release insulin glargine 100 unit/mL (3 15 unit subcut QPM 03/21 Unknown History mL) subcutaneous pen (Lantus Solostar U-100 Insulin) insulin lispro 100 unit/mL 0 unit subcut TID SLIDING S JENNIFER 08/05/21 Unknown History subcutaneous pen tamsulosin 0.4 mg capsule (Flomax) 0.4 mg PO .COMPLEX urination 08/05/21 Unknown History ezetimibe 10 mg tablet 10 mg PO DAILY 04/06/24 Unkn own History lisinopril 5 mg tablet 5 mg PO DAILY 04/06/24 Unkno wn History metoprolol succinate 25 mg 25 mg PO DAILY 04/06/24 Unk nown History tablet,extended release 24 hr blood sugar diagnostic (Contour 09/12/24 Unknown Hist ory Next Test Strips) potassium chloride 20 mEq 20 meq PO BIDCM 30 days #60 tabs 09/14/24 Unknown Rx tablet,extended release(part/cryst) furosemide 40 mg tablet (Lasix) 40 mg PO DAILY 5 Unknown History hydralazine 50 mg tablet 50 mg PO Q8H 04/03/25 Unknow n History Allergy/AdvReac Type Severity Reaction Status Date / Time Corticosteroids AdvReac Other Verified 04/03/25 00:16 (Glucocorticoids) (steroids) Bkaqhgb-BHX-WoV Reductase AdvReac Other Verified 04/03/25 00:16 Inhibitor (Qacrnzn-Uif-Lfl Reductase Inhibitor) Family History Mother COPD (chronic obstructive pulmonary disease) Father CAD (coronary artery disease) Heart disease Surgical History Hx of cystoscopy Hx of colonoscopy Hx of left cataract extraction Hx of right cataract extraction Social History household members: spouse Smoking Status: Current every day smoker tobacco type: cigarettes alcohol intake: never substance use type: does not use ROS ROS Narrative As in HPI Physical Exam Narrative Alert and oriented x 3, no apparent distress S1, S2, RRR Diminished breath sounds. No rales or rhonchi. On O2 nasal cannula 3 to 4 L Abdomen soft, nontender, nondistended No edema External Henley in place Lab / Micro Data 04/04/25 03:15 04/04/25 13:45 Labs: Laboratory Results - last 24 hr 04/03/25 13:54: POC Glucose > 500 H* 04/03/25 14:50: Sodium 133, Potassium 4.4, Chloride 98, Carbon Dioxide 13.6 L, A nion Gap 21 H, BUN 58 H, Creatinine 2.67 H, Estim Creat Clear Calc 18.87 L, Est GFR (MDRD) Non-Af 23 L, BUN/Creatinine Ratio 21.7 H, Glucose 638 H*, Calcium 8.6 04/03/25 14:51: POC Glucose > 500 H* 04/03/25 16:04: POC Glucose 496 H* 04/03/25 17:23: POC Glucose 454 H* 04/03/25 18:09: POC Glucose 363 H 04/03/25 18:50: Sodium 135, Potassium 4.3, Chloride 100, Carbon Dioxide 16.9 L, Anion Gap 18 H, BUN 62 H, Creatinine 2.73 H, Estim Creat Clear Calc 18.46 L, Est GFR (MDRD) Non-Af 23 L, BUN/Creatinine Ratio 22.9 H, Glucose 407 H, Calcium 9.0 04/03/25 18:58: POC Glucose 366 H 04/03/25 20:11: POC Glucose 317 H 04/03/25 21:27: POC Glucose 284 H 04/03/25 22:20: POC Glucose 250 H 04/03/25 23:10: Sodium 136, Potassium 4.5, Chloride 102, Carbon Dioxide 17.3 L, Anion Gap 16 H, BUN 66 H, Creatinine 3.02 H, Estim Creat Clear Calc 16.69 L, Est GFR (MDRD) Non-Af 20 L, BUN/Creatinine Ratio 21.7 H, Glucose 275 H, Calcium 8.5 04/03/25 23:12: POC Glucose 261 H 04/04/25 00:03: POC Glucose 235 H 04/04/25 01:02: POC Glucose 229 H 04/04/25 03:15: WBC 22.0 H, RBC 2.47 L, Hgb 7.4 L, Hct 22.8 L, MCV 92.3, MCH 30.0, MCHC 32.5, RDW Std Deviation 45.9 H, RDW Coeff of Humaira 13.6, Plt Count 230, MPV 11.4, Immature Gran % (Auto) 0.600, Neut % (Auto) 90.4 H, Lymph % (Auto) 4.9 L, [place] % (Auto) 4.0, Eos % (Auto) 0.0, Baso % (Auto) 0.1, Absolute Neuts (auto) 19.9 H, Absolute Lymphs (auto) 1.08, Nucleated RBC % 0, Sodium 136, Potassium 4.6, Chloride 103, Carbon Dioxide 17.8 L, Anion Gap 15, BUN 69 H, Creatinine 3.26 H, Estim Creat Clear Calc 15.61 L, Est GFR (MDRD) Non-Af 18 L, B UN/Creatinine Ratio 21.1 H, Glucose 203 H, Calcium 8.6 04/04/25 03:17: POC Glucose 174 H 04/04/25 04:12: POC Glucose 178 H 04/04/25 06:04: POC Glucose 183 H 04/04/25 06:50: Sodium 137, Potassium 5.0, Chloride 104, Carbon Dioxide 17.5 L, Anion Gap 15, BUN 70 H, Creatinine 3.34 H, Estim Creat Clear Calc 15.24 L, Est GFR (MDRD) Non-Af 18 L, BUN/Creatinine Ratio 21.0 H, Glucose 208 H, Calcium 8.7 04/04/25 07:44: POC Glucose 209 H 04/04/25 10:02: POC Glucose 164 H 04/04/25 13:45: Sodium 134, Potassium 5.4 H, Chloride 101, Carbon Dioxide 17.2 L , Anion Gap 17 H, BUN 77 H, Creatinine 3.74 H, Estim Creat Clear Calc 13.61 L, E st GFR (MDRD) Non-Af 16 L, BUN/Creatinine Ratio 20.5 H, Glucose 226 H, Calcium 8.6 Rhythm Strip Rhythm Strip: Sinus Rhythm Rate: 86
[2025-04-04 15:32] LABS: Urea Nitrogen, Urine 406 mg/dL (NO RANGE EST.)
[2025-04-04] MEDS: hydrALAZINE 50 MG Tablet PO (15:43)
[2025-04-04] MEDS: 0.9% Saline Lock 10 ML Syringe IV (15:43)
[2025-04-04] MEDS: Insulin Lispro 100 UNIT/ML INSULN.PEN SC ×2 (16:40→22:04)
[2025-04-04 17:03] LABS: Bedside Glucose 307 mg/dL (74-106)
--- NOTE | 2025-04-04 21:09 | EKG12_ITS ---
Test Reason : Blood Pressure : */* mmHG Vent. Rate : 57 BPM Atrial Rate : 57 BPM P-R Int : 200 ms QRS Dur : 100 ms QT Int : 462 ms P-R-T Axes : 62 0 194 degrees QTcB Int : 449 ms Sinus bradycardia Left ventricular hypertrophy with repolarization abnormality ( [place] product ) Cannot rule out Septal infarct , age undetermined Abnormal ECG No previous ECGs available Confirmed by JACQUES URIBE, MINERVA ([id number]), sound editor BLANCO BOCANEGRA ([id number]) on 04/09/2025 7:17:54 AM Referred By: Confirmed By: MINERVA HANNA MD
--- NOTE | 2025-04-04 21:12 | EKG12_ITS ---
Test Reason : Blood Pressure : */* mmHG Vent. Rate : 95 BPM Atrial Rate : 95 BPM P-R Int : 170 ms QRS Dur : 96 ms QT Int : 404 ms P-R-T Axes : -12 37 198 degrees QTcB Int : 507 ms Normal sinus rhythm Low voltage QRS Septal infarct , age undetermined ST & T wave abnormality, consider inferolateral ischemia Prolonged QT Abnormal ECG When compared with ECG of 04-Apr-2025 21:09, MANUAL COMPARISON REQUIRED DATA IS UNCONFIRMED Confirmed by JACQUES URIBE, MINERVA ([id number]), business editor BLANCO BOCANEGRA ([id number]) on 04/09/2025 7:17:37 AM Referred By: Confirmed By: MINERVA HANNA MD
--- NOTE | 2025-04-04 21:21 | EKG12_ITS ---
Test Reason : Blood Pressure : */* mmHG Vent. Rate : 47 BPM Atrial Rate : 47 BPM P-R Int : 186 ms QRS Dur : 98 ms QT Int : 422 ms P-R-T Axes : * 14 174 degrees QTcB Int : 373 ms Sinus bradycardia with marked sinus arrhythmia Left ventricular hypertrophy with repolarization abnormality ( [place] product ) Cannot rule out Septal infarct , age undetermined Abnormal ECG When compared with ECG of 04-Apr-2025 21:12, MANUAL COMPARISON REQUIRED DATA IS UNCONFIRMED Confirmed by JACQUES URIBE, MINERVA ([id number]), editorial cartoonist BLANCO BOCANEGRA ([id number]) on 04/09/2025 7:17:16 AM Referred By: Confirmed By: MINERVA HANNA MD
[2025-04-04] MEDS: Ceftriaxone 1 GM/50 ML BAG IV (21:39)
[2025-04-04 21:54] LABS: Bedside Glucose 355 mg/dL (74-106)
[2025-04-04] MEDS: Nitroglycerin Oint 1 INCH PACKET 0.5 INCH TD (22:05)
[2025-04-04] MEDS: Azithromycin 500 MG in 0.9% Normal Saline (250mL Bag) 250 ML 255 MG IV (22:17)
[2025-04-04 22:33] LABS: Troponin T High Sensitivity 2204 ng/L (<=22)
[2025-04-05] VITALS (19 sets, daily range): BP systolic 98–140; BP diastolic 43–65; PULSE 74–98; RESP 14–24; TEMP 36.4–37.1; O2SAT 4–100
[2025-04-05 00:40] LABS: Troponin T High Sens 2 HR 2263 ng/L (<=22)
[2025-04-05 03:00] LABS: Absolute Lymphocyte Count 1.16 X10^3/uL (0.83-4.51); Absolute Neutrophil Count 17.4 X10^3/uL (2.0-7.7); Basophil# 0.02 X10^3/uL; Basophil% 0.1 % (0-1); Hematocrit 25.6 % (40-54); Hemoglobin 8.3 g/dL (13.0-16.5); Lymphocyte # 1.16 X10^3/ul (0.83-4.51); Lymphocyte % 5.7 % (19-41); Mean Corp Hgb Conc 32.4 g/dL (32-36); Mean Corpuscular Volume 92.4 fL (80-94); Mean Platelet Vol. 11.7 fl (6.2-12.0); Monocyte# 1.57 X10^3/uL; Monocyte% 7.7 % (0-10); NRBC Flagged by Analyzer 0 % (0-5); Neutrophil # 17.41 X10^3/uL (2.7-7.7); Neutrophil % 85.5 % (47-70); POSITIVE DIFFERENTIAL YES; Platelet Count 255 K/mm3 (150-450); RBC Distribution Width CV 13.8 % (11.6-14.6); RBC Distribution Width SD 46.6 fl (35.1-43.9); Red Blood Count 2.77 M/mm3 (4.6-6.2); White Blood Count 20.4 K/mm3 (4.4-11.0)
[2025-04-05 03:04] LABS: Differential Indicated SCAN CRITERIA MET
[2025-04-05 03:37] LABS: Troponin T High Sens 4 HR 2425 ng/L (<=22)
[2025-04-05 03:39] LABS: Differential Comment SCANNED
[2025-04-05] MEDS: hydrALAZINE 50 MG Tablet PO (05:54)
[2025-04-05] MEDS: Nitroglycerin Oint 1 INCH PACKET 0.5 INCH TD (05:55)
[2025-04-05] MEDS: Heparin Injection (Vial) 5,000 UNIT/ML VIAL 5000 UNIT SC ×3 (05:56→21:36)
[2025-04-05] MEDS: Insulin Lispro 100 UNIT/ML INSULN.PEN SC ×3 (06:26→21:36)
[2025-04-05 07:15] LABS: Bedside Glucose 253 mg/dL (74-106)
[2025-04-05] MEDS: predniSONE 20 MG Tablet 40 MG PO (07:49)
[2025-04-05] MEDS: Ipratropium/Albuterol Sulfate 3 ML AMPUL.NEB INHALATION ×2 (07:57→19:35)
--- NOTE | 2025-04-05 08:19 | PN.CC_ITS ---
Assessment & Plan Assessment/Plan (1) Acute hypoxic respiratory failure: PLAN: Plan RECOMMENDATIONS: 1. Continue supplemental oxygen to maintain saturations at or above 90%. 2. Empiric BiPAP therapy with naps and nightly. 3. Continue empiric antimicrobials, bronchodilators and steroids. 4. The patient will undoubtedly need to follow-up in the pulmonary medicine clinic so that baseline PFTs can be obtained. 5. Smoking cessation is advisable. IMPRESSIONS: 1. Acute hypoxemic respiratory failure Clinical concern for multifactorial etiology with possible COPD exacerbation along with possible CHF contributing. The patient has an extensive tobacco abuse history, but has never been formally diagnosed with COPD. He does have evidence of bilateral pleural effusions along with questionable airspace disease, concerning for pneumonia. Accordingly, the patient will be continued on scheduled bronchodilators, antimicrobials and prednisone. Will defer additional medical optimization to cardiology, who is following. Ideally, the patient will need outpatient follow-up in the pulmonary medicine office after discharge so that baseline PFTs can be obtained. 2. Chronic tobacco dependency Tobacco cessation is strongly advised. Recommend outpatient pulmonary follow-up and PFTs. 3. Elevated troponin likely secondary to demand ischemia in the setting of #1 Continue current supportive care per cardiology recommendations. 4. History of diabetes mellitus/hypertension/hyperlipidemia/chronic kidney disease/BPH Complicates care, management, recovery and prognosis. Continue home medications as indicated. CODE STATUS: DNR CCA without intubation This note was generated with [employer] dictation software. It may contain incorrect words, spelling, and punctuation that were not noted in checking the note before signing. Subjective Subjective The patient was seen and examined at the bedside this morning. Events from the last 24 hours have been reviewed. The patient is currently afebrile, hemodynamically stable and maintaining appropriate oxygen saturations on BiPAP. The patient had been on 3 L/min via nasal cannula. White blood cell count is elevated at 20,000 with a hemoglobin of 8.3 g/dL. Objective Data Objective Data The patient's most recent lab work, culture data and imaging studies have all been personally reviewed. Surface echocardiogram demonstrated an ejection fraction of 40% with stage I diastolic dysfunction and severe mitral annular calcification. Right ventricular systolic pressure was estimated to be 41 mmHg. Strep and urine Legionella antigens were negative. Respiratory viral panel was negative. Blood and urine cultures have not demonstrated any growth to date. Vital Signs: Vital Signs Temp Pulse Resp BP Pulse Ox O2 Del Method O2 Flow Rate 97.6 F L 95 20 H 98/53 L 95 Nasal Cannula 94 04/05/25 06:23 04/05/25 07:58 04/05/25 07:58 04/05/25 07:40 04/05/25 07:58 04/05/25 07:40 04/05/25 07:40 FiO2 35 04/05/25 07:58 Oxygen Flow Rate (L/min) 94 Oxygen Delivery Method Nasal Cannula Weight: 136 lb 14.513 oz Body Mass Index (BMI) 21.4 Intake & Output: Intake and Output for Last 24 Hours 04/03/25 04/04/25 04/05/25 23:59 23:59 23:59 Intake Total 713.88 / 713.88 1341.85 / 1341.85 Output Total 350 / 350 100 / 100 400 / 400 Balance 363.88 / 363.88 1241.85 / 1241.85 -400 / -400 Lab / Micro Data Attestation: I reviewed the patient's lab results. 04/05/25 02:45 04/04/25 13:45 Labs: Laboratory Results - last 24 hr 04/04/25 00:00: Troponin T Hi Sens 2 Hr 2263 H* 04/04/25 01:02: POC Glucose 229 H 04/04/25 03:17: POC Glucose 174 H 04/04/25 04:12: POC Glucose 178 H 04/04/25 06:04: POC Glucose 183 H 04/04/25 07:44: POC Glucose 209 H 04/04/25 10:02: POC Glucose 164 H 04/04/25 13:45: Sodium 134, Potassium 5.4 H, Chloride 101, Carbon Dioxide 17.2 L , Anion Gap 17 H, BUN 77 H, Creatinine 3.74 H, Estim Creat Clear Calc 13.61 L, E st GFR (MDRD) Non-Af 16 L, BUN/Creatinine Ratio 20.5 H, Glucose 226 H, Calcium 8.6 04/04/25 14:26: Urine Creatinine 138.00, Urine Urea Nitrogen 406 04/04/25 16:39: POC Glucose 307 H 04/04/25 21:36: POC Glucose 355 H 04/04/25 21:59: Troponin T High Sens 2204 H* D 04/05/25 02:45: WBC 20.4 H, RBC 2.77 L, Hgb 8.3 L, Hct 25.6 L, MCV 92.4, MCH 30.0, MCHC 32.4, RDW Std Deviation 46.6 H, RDW Coeff of Humair[place] 13.8, Plt Count 255, MPV 11.7, Immature Gran % (Auto) 1.000 H, Neut % (Auto) 85.5 H, Lymph % (Auto) 5.7 L, [place] % (Auto) 7.7, Eos % (Auto) 0.0, Baso % (Auto) 0.1, Absolute Neuts (auto) 17.4 H, Absolute Lymphs (auto) 1.16, Nucleated RBC % 0, Differential Comment SCANNED, Troponin T Hi Sens 4Hr 2425 H* 04/05/25 06:26: POC Glucose 253 H Micro: Microbiology 04/03/25 05:46 Wound - Elbow Skin and Soft Tissue MRSA/MSSA (PCR - Final 04/03/25 05:10 Mucosa - Nasopharyngeal Respiratory Panel (PCR) - Final 04/03/25 05:51 Urine, Clean Catch Legionella Antigen - Final 04/03/25 05:51 Urine Catheter - Catheter Streptococcus pneumoniae Antigen (M - Final 04/03/25 00:25 Mucosa - Nose SARS-CoV-2, Influenza & RSV (PCR) - Final Radiography Diagnostic Testing: Radiology Impression Renal Ultrasound 04/04/25 11:33 IMPRESSION: 1. Mild renal cortical thinning bilaterally. No hydronephrosis. 2. Nonobstructing stone in the left kidney measuring 0.5 cm, unchanged. 3. Prostatomegaly with an echogenic nodule measuring 1.9 cm, similar to prior. Correlate with PSA. Reading Location: [facility] Rhythm Strip Rhythm Strip: Sinus Rhythm Rate: 86 Physical Exam Const alert, oriented x3 and no apparent distress Constitutional Narrative: is present at the bedside. HEENT normocephalic, head/scalp atraumatic and moist oral mucous membranes Eyes PERRL, EOMs intact bilaterally and conjunctivae normal Neck supple General: trachea midline Chest inspection of chest normal Resp normal respiratory effort and no use of accessory muscles Auscultation: rales and diminished lung sounds Cardio regular rate, S1 normal heart sound and S2 normal heart sound GI normal to inspection, nondistended, normoactive bowel sounds Extremity no clubbing, cyanosis or edema Skin Skin Narrative: Wrapped lower extremities. Neuro CN's II-XII intact bilaterally, moves all extremities and no focal motor deficits Psych cooperative and affect normal Charges/Coding Visit Charges Inpatient E&M: 98203 Subs Hosp L2
[2025-04-05] MEDS: Insulin Glargine-YFGN 100 UNIT/ML Pen 15 UNIT SC (09:22)
[2025-04-05] MEDS: Aspirin E.C. 81 MG Tablet PO (09:23)
[2025-04-05] MEDS: Metoprolol(XL)Succ 25 MG Tablet PO (09:23)
[2025-04-05] MEDS: Ezetimibe 10 MG Tablet PO (09:23)
[2025-04-05 09:53] LABS: Anion Gap 18 (5-15); BUN 96 mg/dL (4-19); BUN/Creat Ratio 20.5 RATIO (10-20); Calcium,Total 8.1 mg/dL (7.6-11.0); Carbon Dioxide 15.8 mmol/L (21.0-32.0); Chloride 102 mmol/L (98-108); Creatinine, Serum 4.68 mg/dL (0.70-1.20); EST Glomerular Filtration Rate 12 (>60); Estimated Creatinine Clearance 10.87 ml/min (50-250); Glucose 223 mg/dL (70-99); Potassium 6.3 mmol/L (3.3-5.1); Sodium Level 136 mmol/L (133-145)
[2025-04-05] MEDS: Sodium Polystyrene Sulfonate 15 GM/60 ML UDC 30 GM PO (10:31)
[2025-04-05] MEDS: Calcium Gluconate 1 GM/10 ML Vial IVP (10:38)
[2025-04-05] MEDS: Sodium Bicarbonate 8.4% 50 ML Syringe 50 MEQ IV (10:40)
[2025-04-05] MEDS: Insulin Lispro 10 UNIT in Syringe 0 ML 6 UNIT IV (10:41)
[2025-04-05] MEDS: Furosemide 100 MG/10 ML Vial 80 MG IV (10:42)
--- NOTE | 2025-04-05 11:55 | EKG12_ITS ---
Test Reason : Blood Pressure : */* mmHG Vent. Rate : 77 BPM Atrial Rate : 77 BPM P-R Int : 160 ms QRS Dur : 90 ms QT Int : 410 ms P-R-T Axes : 86 57 207 degrees QTcB Int : 463 ms Normal sinus rhythm Septal infarct , age undetermined ST & T wave abnormality, consider lateral ischemia Abnormal ECG When compared with ECG of 03-Apr-2025 00:05, MANUAL COMPARISON REQUIRED DATA IS UNCONFIRMED Confirmed by JACQUES URIBE, MINERVA ([id number]), loan expeditor BLANCO BOCANEGRA ([id number]) on 04/09/2025 6:57:50 AM Referred By: FLORENTINO Confirmed By: MINERVA HANNA MD
[2025-04-05] MEDS: Albuterol *CONC* 2.5mg/0.5mL VIAL.NEB. 10 MG INHALATION (12:09)
--- NOTE | 2025-04-05 12:12 | PN_ITS ---
Subjective Subjective Patient seen and examined. He got more short of breath this morning and had to be put on BIPAP due to increased work of breathing. His potassium was also elevated this morning. Cr has also trended up further to 4.68 today. Objective Data Objective Data Vital Signs: Vital Signs Temp Pulse Resp BP Pulse Ox O2 Del Method O2 Flow Rate 97.6 F L 85 20 H 106/61 95 Nasal Cannula 4 04/05/25 06:23 04/05/25 09:30 04/05/25 07:58 04/05/25 09:30 04/05/25 09:30 04/05/25 09:30 04/05/25 09:30 FiO2 35 04/05/25 07:58 Oxygen Flow Rate (L/min) 4 Oxygen Delivery Method Nasal Cannula Weight: 136 lb 14.513 oz Body Mass Index (BMI) 21.4 Intake & Output: Intake and Output for Last 24 Hours 04/03/25 04/04/25 04/05/25 23:59 23:59 23:59 Intake Total 713.88 / 713.88 1341.85 / 1341.85 Output Total 350 / 350 100 / 100 400 / 400 Balance 363.88 / 363.88 1241.85 / 1241.85 -400 / -400 Lab / Micro Data 04/05/25 02:45 04/05/25 09:06 Labs: Laboratory Results - last 24 hr 04/04/25 00:00: Troponin T Hi Sens 2 Hr 2263 H* 04/04/25 13:45: Sodium 134, Potassium 5.4 H, Chloride 101, Carbon Dioxide 17.2 L , Anion Gap 17 H, BUN 77 H, Creatinine 3.74 H, Estim Creat Clear Calc 13.61 L, E st GFR (MDRD) Non-Af 16 L, BUN/Creatinine Ratio 20.5 H, Glucose 226 H, Calcium 8.6 04/04/25 14:26: Urine Creatinine 138.00, Urine Urea Nitrogen 406 04/04/25 16:39: POC Glucose 307 H 04/04/25 21:36: POC Glucose 355 H 04/04/25 21:59: Troponin T High Sens 2204 H* D 04/05/25 02:45: WBC 20.4 H, RBC 2.77 L, Hgb 8.3 L, Hct 25.6 L, MCV 92.4, MCH 30.0, MCHC 32.4, RDW Std Deviation 46.6 H, RDW Coeff of [place] 13.8, Plt Count 255, MPV 11.7, Immature Gran % (Auto) 1.000 H, Neut % (Auto) 85.5 H, Lymph % (Auto) 5.7 L, [place] % (Auto) 7.7, Eos % (Auto) 0.0, Baso % (Auto) 0.1, Absolute Neuts (auto) 17.4 H, Absolute Lymphs (auto) 1.16, Nucleated RBC % 0, Differential Comment SCANNED, Troponin T Hi Sens 4Hr 2425 H* 04/05/25 06:26: POC Glucose 253 H 04/05/25 09:06: Sodium 136, Potassium 6.3 H*, Chloride 102, Carbon Dioxide 15.8 L, Anion Gap 18 H, BUN 96 H, Creatinine 4.68 H, Estim Creat Clear Calc 10.87 L, Est GFR (MDRD) Non-Af 12 L, BUN/Creatinine Ratio 20.5 H, Glucose 223 H, Calcium 8.1 Micro: Microbiology 04/03/25 02:25 Blood Culture (Wb) - Anticubital Left Blood Culture - Preliminary No growth in 48 hours. 04/03/25 03:50 Blood Culture (Wb) - Anticubital Left Blood Culture - Preliminary No growth in 48 hours. 04/03/25 05:51 Urine, Clean Catch Urine Culture - Final Culture exhibits no growth. 04/03/25 05:46 Wound - Elbow Skin and Soft Tissue MRSA/MSSA (PCR - Final 04/03/25 05:10 Mucosa - Nasopharyngeal Respiratory Panel (PCR) - Final 04/03/25 05:51 Urine, Clean Catch Legionella Antigen - Final 04/03/25 05:51 Urine Catheter - Catheter Streptococcus pneumoniae Antigen (M - Final 04/03/25 00:25 Mucosa - Nose SARS-CoV-2, Influenza & RSV (PCR) - Final Radiography Diagnostic Testing: Radiology Impression Renal Ultrasound 04/04/25 11:33 IMPRESSION: 1. Mild renal cortical thinning bilaterally. No hydronephrosis. 2. Nonobstructing stone in the left kidney measuring 0.5 cm, unchanged. 3. Prostatomegaly with an echogenic nodule measuring 1.9 cm, similar to prior. Correlate with PSA. Reading Location: [facility] Rhythm Strip Rhythm Strip: Sinus Rhythm Rate: 86 Physical Exam Const alert and oriented x3 Constitutional Narrative: on BIPAP this morning, looks anxious General Appearance: cooperative HEENT normocephalic, moist oral mucous membranes, oropharynx normal and gingiva normal Eyes PERRL and EOMs intact bilaterally Neck no lymphadenopathy and supple Lymph Lymphatic: no lymphadenopathy noted and no lymphedema noted Resp Resp Narrative: moderately diminished breath sounds bilaterally, on BIPAP. tachypneic at time of review, no wheezes or crackles. Effort and Inspection: tachypneic Cardio regular rate, regular rhythm, S1 normal heart sound, S2 normal heart sound and no murmurs GI normal to inspection, nondistended, normoactive bowel sounds, soft to palpation and non-tender Extremity normal capillary refill, no clubbing, cyanosis or edema and no calf tenderness General Extremity: no tenderness to palpation of joints or extremities Skin General Skin Exam: no breakdown Neuro CN's II-XII intact bilaterally, no focal motor deficits and no sensory deficits noted Motor Exam: general weakness Psych thought process normal and cooperative Appearance: appropriate Assessment & Plan Assessment/Plan (1) Acute hypoxic respiratory failure: PLAN: Plan #Acute hypoxic respiratory failure due to acute on chronic COPD examination and probable heart failure as well as superimposed pneumonia * back on BIPAP this morning due to worsening shortness of breath. * sputum cultures pending. Urine for strep and legionella negative. Respiratory panel negative. * breathing treatment with bronchodilators. Titrate oxygen to maintain sats >90% * critical care on board. * 2D echo ordered showed EF of 40% with LV hypokinesis and stage I diastolic dysfunction and RVSP of 41mmHg. * cardiology consulted. Per cardiology he had a cardiac cath 2 years ago at [facility] and was told he had 2 blockages which were not amenable to revascularization. Records requested from [facility]. Further management as per cardiology. * #Elevated cardiac enzymes: * initial troponin was 58, and only peaked at 76. 2D echo as above. * Further records requested from [facility] as above * cardiology on board * #MADONNA on CKD III with hyperkalemia * Cr trended up further to 4.63 today. Potassium is also elevated at 6.3 * lasix and lisinopril on hold. Potassium also held * Henley catheter in situ. Patient given hyperkalemia protocol and also given Kayexalate. * Nephrology started patient on sodium bicarb this morning also. Patient counseled that if these measures do not help then he will need to start temporary dialysis. * will repeat BMP after kayexalate to monitor potassium * EKG: #Leukocytosis: WBCs at 20 today, down from 22 yesterday. Likely due to IV steroid she is receiving. Will monitor.. Switch to PO prednisone. #Type 2 diabetes mellitus: on lantus. ISS. Accuchecks ACHS #Hyperlipidemia: on ezetimibe #Nicotine dependence: counseled to quit. Nicotine patch prn. DVT prophylaxis: heparin sq. Charges/Coding Visit Charges Inpatient E&M: 04090 [facility] Hosp L3
[2025-04-05 12:59] LABS: Bedside Glucose 263 mg/dL (74-106)
[2025-04-05 13:39] LABS: Bacteria 0 SEEN /hpf (None Seen); Mucous, Urine 0 SEEN /hpf (<or=2+); Squamous Epithelial Cells - UA 0 SEEN /hpf (0-5)
[2025-04-05 13:42] LABS: Bedside Glucose 226 mg/dL (74-106)
[2025-04-05 13:42] LABS: Color, Urine Yellow (Yellow); Glucose, Dipstick Normal (Normal); Ketone-Dipstick Negative (Negative); Leukocyte Esterase-Dipstick 500 /ul (Negative); Nitrite-Dipstick Negative (Negative); Occult Blood-Urine 250 /ul (Negative); Protein-Dipstick 100 mg/dl (Negative); Urine Clarity Sl. Cloudy (Clear); Urine Urobilinogen Normal (Normal)
[2025-04-05 13:48] LABS: Urine Bilirubin Dipstick 1 mg/dL (Negative)
[2025-04-05 13:49] LABS: Red Blood Cells-Urine > 100 SEEN /hpf (0-5)
[2025-04-05 13:50] LABS: White Blood Cells 5-10 SEEN /hpf (0-5)
--- NOTE | 2025-04-05 14:59 | PCM.PN.CARD ---
Subjective Subjective Patient denies any chest pain. He says his breathing is better as well. He is more bothered by frequent bowel movement due to Kayexalate which was given due to hyperkalemia. Objective Data Vital Signs: Vital Signs Temp Pulse Resp BP Pulse Ox O2 Del Method O2 Flow Rate 97.6 F L 76 14 98/43 L 96 Bi-pap 5 04/05/25 13:22 04/05/25 14:40 04/05/25 14:40 04/05/25 14:40 04/05/25 14:40 04/05/25 14:40 04/05/25 13:22 FiO2 04/05/25 12:10 Oxygen Flow Rate (L/min) 5 Oxygen Delivery Method Bi-pap Weight: 136 lb 14.513 oz Body Mass Index (BMI) 21.4 Intake & Output: Intake and Output for Last 24 Hours 04/03/25 04/04/25 04/05/25 23:59 23:59 23:59 Intake Total 713.88 / 713.88 1341.85 / 1341.85 240 / 240 Output Total 350 / 350 100 / 100 600 / 600 Balance 363.88 / 363.88 1241.85 / 1241.85 -360 / -360 Lab / Micro Data 04/05/25 02:45 04/05/25 13:44 Labs: Laboratory Results - last 24 hr 04/04/25 00:00: Troponin T Hi Sens 2 Hr 2263 H* 04/04/25 14:26: Urine Creatinine 138.00, Urine Urea Nitrogen 406 04/04/25 16:39: POC Glucose 307 H 04/04/25 21:36: POC Glucose 355 H 04/04/25 21:59: Troponin T High Sens 2204 H* D 04/05/25 02:45: WBC 20.4 H, RBC 2.77 L, Hgb 8.3 L, Hct 25.6 L, MCV 92.4, MCH 30.0, MCHC 32.4, RDW Std Deviation 46.6 H, RDW Coeff of Humaira 13.8, Plt Count 255, MPV 11.7, Immature Gran % (Auto) 1.000 H, Neut % (Auto) 85.5 H, Lymph % (Auto) 5.7 L, [place] % (Auto) 7.7, Eos % (Auto) 0.0, Baso % (Auto) 0.1, Absolute Neuts (auto) 17.4 H, Absolute Lymphs (auto) 1.16, Nucleated RBC % 0, Differential Comment SCANNED, Troponin T Hi Sens 4Hr 2425 H* 04/05/25 06:26: POC Glucose 253 H 04/05/25 07:39: POC Glucose 263 H 04/05/25 09:06: Sodium 136, Potassium 6.3 H*, Chloride 102, Carbon Dioxide 15.8 L, Anion Gap 18 H, BUN 96 H, Creatinine 4.68 H, Estim Creat Clear Calc 10.87 L, Est GFR (MDRD) Non-Af 12 L, BUN/Creatinine Ratio 20.5 H, Glucose 223 H, Calcium 8.1 04/05/25 13:14: Urine Color Yellow, Urine Clarity Sl. Cloudy, Urine pH 5.0, Ur Specific [place] 1.020, Urine Protein 100 H, Urine Glucose (UA) Normal, Urine Ketones Negative, Urine Occult Blood 250 H, Urine Nitrite Negative, Urine Bilirubin 1 H, Urine Urobilinogen Normal, Ur Leukocyte Esterase 500 H, Urine RBC > 100 SEEN, Urine WBC 5-10 SEEN, Ur Squamous Epith Cells 0 SEEN, Urine Bacteria 0 SEEN, Urine Mucus 0 SEEN 04/05/25 13:17: POC Glucose 226 H Micro: Microbiology 04/03/25 02:25 Blood Culture (Wb) - Anticubital Left Blood Culture - Preliminary No growth in 48 hours. 04/03/25 03:50 Blood Culture (Wb) - Anticubital Left Blood Culture - Preliminary No growth in 48 hours. 04/03/25 05:51 Urine, Clean Catch Urine Culture - Final Culture exhibits no growth. Rhythm Strip Rhythm Strip: Sinus Rhythm Rate: 86 Cardiology Labs/Tests 04/05/25 02:45: WBC 20.4 H, RBC 2.77 L, Hgb 8.3 L, Hct 25.6 L, MCV 92.4, MCH 30.0, MCHC 32.4, Plt Count 255, MPV 11.7, Immature Gran % (Auto) 1.000 H, Neut % (Auto) 85.5 H, Lymph % (Auto) 5.7 L, [place] % (Auto) 7.7, Eos % (Auto) 0.0, Baso % (Auto) 0.1, Absolute Neuts (auto) 17.4 H, Nucleated RBC % 0 04/05/25 09:06: Sodium 136, Potassium 6.3 H*, Chloride 102, Carbon Dioxide 15.8 L, Anion Gap 18 H, BUN 96 H, Creatinine 4.68 H, Est GFR (MDRD) Non-Af 12 L, BUN/Creatinine Ratio 20.5 H, Glucose 223 H, Calcium 8.1 04/05/25 13:14: Urine Color Yellow, Urine Clarity Sl. Cloudy, Urine pH 5.0, Ur Specific [place] 1.020, Urine Protein 100 H, Urine Glucose (UA) Normal, Urine Ketones Negative, Urine Occult Blood 250 H, Urine Nitrite Negative, Urine Bilirubin 1 H, Urine Urobilinogen Normal, Ur Leukocyte Esterase 500 H, Urine RBC > 100 SEEN, Urine WBC 5-10 SEEN Rhythm: EKG: ECHO: Stress Test: Cardiac Cath: PCI: CT Surgery: Holter monitor: EPS: PPM: CXR: Chest CT Scan: Radiography Diagnostic Testing: Radiology Impression Renal Ultrasound 04/04/25 11:33 IMPRESSION: 1. Mild renal cortical thinning bilaterally. No hydronephrosis. 2. Nonobstructing stone in the left kidney measuring 0.5 cm, unchanged. 3. Prostatomegaly with an echogenic nodule measuring 1.9 cm, similar to prior. Correlate with PSA. Reading Location: [facility] Physical Exam Const alert HEENT normocephalic Eyes no scleral icterus Resp normal respiratory effort Cardio regular rate and regular rhythm Extremity no pedal edema Assessment & Plan Assessment/Plan (1) LV dysfunction: PLAN: The patient carries a history of eject fraction of 40% by echo this admission. He was told his heart muscle did not function normally had a catheterization within the last 2 years at [place]. He also had 2 blockages that were not amenable to revascularization. The patient denies any anginal symptoms. He has no lower extremity edema he has no JVD at 90 degrees. His creatinine is slowly climbing and this may suggest that he is relatively intravascularly depleted. Agree with holding his diuretic therapy for the time being. Agree with the other current medical regiment for his LV dysfunction with his hydralazine. (2) CKD (chronic kidney disease), stage III: QUALIFIERS: Chronic kidney disease stage 3 subtype: stage 3b (GFR 30-44) Qualified Code(s): N18.32 - Chronic kidney disease, stage 3b PLAN: Creatinine continues to climb. Further management per the primary service. It does not appear that his LV ejection fraction of 40% would be the sole etiology of this decline in his renal function. (3) HTN (hypertension): QUALIFIERS: Hypertension type: primary hypertension Qualified Code(s): I10 - Essential (primary) hypertension PLAN: Blood pressure is adequately controlled on his current medical therapy. (4) Anemia: QUALIFIERS: Anemia type: unspecified type Qualified Code(s): D64.9 - Anemia, unspecified PLAN: Will defer to the primary service. (5) Bradycardia: PLAN: Patient had episodes of bradycardia and was also found to be significantly hypokalemic. He was given Kayexalate and has not had any significant bradycardia in the last few hours. (6) Non-STEMI (non-ST elevated myocardial infarction): PLAN: Patient gives history of known CAD that could not be revascularized. He denies any chest pain at this time. Appears comfortable. Patient has acute kidney injury. Would not recommend invasive therapy at this time. Elevated troponin could be multifactorial in etiology due to hypoxia in the setting of underlying CAD that could not be revascularized, LV dysfunction etc. Continue current medical therapy. PLAN: Plan 1. Agree with continuing the current medical plan. 2. Once the patient is discharged if he wishes to follow-up with cardiology, he has not in the past, would be willing to see him in the [facility] in 7 to 10 days after discharge. Charges/Coding Visit Charges Inpatient E&M: 64756 Subs Hosp L2
[2025-04-05 15:03] LABS: Anion Gap 19 (5-15); BUN 99 mg/dL (4-19); BUN/Creat Ratio 20.8 RATIO (10-20); Calcium,Total 8.9 mg/dL (7.6-11.0); Carbon Dioxide 15.6 mmol/L (21.0-32.0); Chloride 102 mmol/L (98-108); Creatinine, Serum 4.77 mg/dL (0.70-1.20); EST Glomerular Filtration Rate 12 (>60); Estimated Creatinine Clearance 10.67 ml/min (50-250); Glucose 205 mg/dL (70-99); Potassium 5.7 mmol/L (3.3-5.1); Sodium Level 137 mmol/L (133-145)
--- NOTE | 2025-04-05 15:18 | PN.RENAL_ITS ---
Subjective Subjective he is on bipap Objective Data Objective Data Vital Signs: Vital Signs Temp Pulse Resp BP Pulse Ox O2 Del Method O2 Flow Rate 97.6 F L 76 14 98/43 L 98 Nasal Cannula 4 04/05/25 13:22 04/05/25 14:40 04/05/25 14:40 04/05/25 14:40 04/05/25 15:03 04/05/25 15:03 04/05/25 15:03 FiO2 25 04/05/25 12:10 Oxygen Flow Rate (L/min) 4 Oxygen Delivery Method Nasal Cannula Weight: 62.1 kg Body Mass Index (BMI) 21.4 Intake & Output: Intake and Output for Last 24 Hours 04/03/25 04/04/25 04/05/25 23:59 23:59 23:59 Intake Total 713.88 / 713.88 1341.85 / 1341.85 480 / 480 Output Total 350 / 350 100 / 100 600 / 600 Balance 363.88 / 363.88 1241.85 / 1241.85 -120 / -120 Lab / Micro Data 04/05/25 02:45 04/05/25 13:44 Labs: Laboratory Results - last 24 hr 04/04/25 00:00: Troponin T Hi Sens 2 Hr 2263 H* 04/04/25 14:26: Urine Creatinine 138.00, Urine Urea Nitrogen 406 04/04/25 16:39: POC Glucose 307 H 04/04/25 21:36: POC Glucose 355 H 04/04/25 21:59: Troponin T High Sens 2204 H* D 04/05/25 02:45: WBC 20.4 H, RBC 2.77 L, Hgb 8.3 L, Hct 25.6 L, MCV 92.4, MCH 30.0, MCHC 32.4, RDW Std Deviation 46.6 H, RDW Coeff of [place] 13.8, Plt Count 255, MPV 11.7, Immature Gran % (Auto) 1.000 H, Neut % (Auto) 85.5 H, Lymph % (Auto) 5.7 L, [place] % (Auto) 7.7, Eos % (Auto) 0.0, Baso % (Auto) 0.1, Absolute Neuts (auto) 17.4 H, Absolute Lymphs (auto) 1.16, Nucleated RBC % 0, Differential Comment SCANNED, Troponin T Hi Sens 4Hr 2425 H* 04/05/25 06:26: POC Glucose 253 H 04/05/25 07:39: POC Glucose 263 H 04/05/25 09:06: Sodium 136, Potassium 6.3 H*, Chloride 102, Carbon Dioxide 15.8 L, Anion Gap 18 H, BUN 96 H, Creatinine 4.68 H, Estim Creat Clear Calc 10.87 L, Est GFR (MDRD) Non-Af 12 L, BUN/Creatinine Ratio 20.5 H, Glucose 223 H, Calcium 8.1 04/05/25 13:14: Urine Color Yellow, Urine Clarity Sl. Cloudy, Urine pH 5.0, Ur Specific [place] 1.020, Urine Protein 100 H, Urine Glucose (UA) Normal, Urine Ketones Negative, Urine Occult Blood 250 H, Urine Nitrite Negative, Urine Bilirubin 1 H, Urine Urobilinogen Normal, Ur Leukocyte Esterase 500 H, Urine RBC > 100 SEEN, Urine WBC 5-10 SEEN, Ur Squamous Epith Cells 0 SEEN, Urine Bacteria 0 SEEN, Urine Mucus 0 SEEN 04/05/25 13:17: POC Glucose 226 H 04/05/25 13:44: Sodium 137, Potassium 5.7 H, Chloride 102, Carbon Dioxide 15.6 L , Anion Gap 19 H, BUN 99 H, Creatinine 4.77 H, Estim Creat Clear Calc 10.67 L, E st GFR (MDRD) Non-Af 12 L, BUN/Creatinine Ratio 20.8 H, Glucose 205 H, Calcium 8.9 Micro: Microbiology 04/03/25 02:25 Blood Culture (Wb) - Anticubital Left Blood Culture - Preliminary No growth in 48 hours. 04/03/25 03:50 Blood Culture (Wb) - Anticubital Left Blood Culture - Preliminary No growth in 48 hours. 04/03/25 05:51 Urine, Clean Catch Urine Culture - Final Culture exhibits no growth. 04/03/25 05:46 Wound - Elbow Skin and Soft Tissue MRSA/MSSA (PCR - Final 04/03/25 05:10 Mucosa - Nasopharyngeal Respiratory Panel (PCR) - Final 04/03/25 05:51 Urine, Clean Catch Legionella Antigen - Final 04/03/25 05:51 Urine Catheter - Catheter Streptococcus pneumoniae Antigen (M - Final 04/03/25 00:25 Mucosa - Nose SARS-CoV-2, Influenza & RSV (PCR) - Final Radiography Diagnostic Testing: Radiology Impression Renal Ultrasound 04/04/25 11:33 IMPRESSION: 1. Mild renal cortical thinning bilaterally. No hydronephrosis. 2. Nonobstructing stone in the left kidney measuring 0.5 cm, unchanged. 3. Prostatomegaly with an echogenic nodule measuring 1.9 cm, similar to prior. Correlate with PSA. Reading Location: [id number] Rhythm Strip Rhythm Strip: Sinus Rhythm Rate: 86 Physical Exam Narrative Alert and oriented x 3, no apparent distress S1, S2, RRR Diminished breath sounds. No rales or rhonchi. On O2 nasal cannula 3 to 4 L Abdomen soft, nontender, nondistended No edema External [place] in place Assessment & Plan Assessment/Plan (1) MADONNA (acute kidney injury): (2) CKD (chronic kidney disease), stage III: QUALIFIERS: Chronic kidney disease stage 3 subtype: stage 3b (GFR 30-44) Qualified Code(s): N18.32 - Chronic kidney disease, stage 3b (3) Acute hypoxic respiratory failure: PLAN: Plan This is an 79-year-old male with past medical history significant for hypertension, CKD stage III (followed by Dr. Solomon in [place]), COPD, diabetes mellitus admitted to the hospital for acute hypoxic respiratory failure, multifactorial from COPD and/or pneumonia and/or possible heart failure contributing. Nephrology consulted in view of elevated creatinine. Baseline creatinine is around 1.8 mg/dL range. Creatinine was 1.8 on admission received contrast on admit Renal US no hydronephrosis UA ordered This morning worsening renal function, hyperkalemia. dw hospitaalist. medical treatment given. lasix 80 mg given. did not respond much. only about 200 cc of urine. presumably MADONNA due to contrast nephropathy vs ATN start low dose bicarbonate drip due to lack of urine output and worsening renal failure needs temporary dialysis
[2025-04-05] MEDS: Sodium Bicarbonate 150 MEQ in Dextrose 5%-Water (1000mL Bag) 1,000 ML 75 MEQ IV (15:53)
[2025-04-05 17:15] LABS: Bedside Glucose 239 mg/dL (74-106)
[2025-04-05] MEDS: Heparin 10,000 UNITS/10 ML Vial 2500 UNITS IV (17:32)
[2025-04-05] MEDS: 0.9% Saline Lock 10 ML Syringe IV ×2 (17:35→21:28)
--- NOTE | 2025-04-05 18:02 | RAD_ITS ---
PROCEDURE: CXR FOR LINE PLACEMENT 04/05/2025 REASON FOR EXAM: TEMP HD CATH INSERTION ON RIGHT TECHNIQUE: Single frontal view of the chest COMPARISON: 04/03/2025 RAD/CXR for Line Placement IMPRESSION: Interval insertion of right IJ line with tip at SVC, likely in appropriate posi tion. Lung findings are grossly unchanged. Reading Location: [id number]
--- NOTE | 2025-04-05 18:06 | CON.PCM.SX_ITS ---
Assessment & Plan Assessment/Plan (1) CKD (chronic kidney disease), stage III: QUALIFIERS: Chronic kidney disease stage 3 subtype: stage 3b (GFR 30-44) Qualified Code(s): N18.32 - Chronic kidney disease, stage 3b PLAN: Plan Patient is an 79-year-old male with worsening renal function. Line Therapist is recommending temporary dialysis. Dialysis catheter was placed in the right internal jugular vein this evening in anticipation for dialysis in the morning. Patient tolerated this procedure well. Please see separate procedure note for details of the catheter placement HPI Consult Data Date of Consult: 04/05/25 HPI Narrative Reason for Consultation: Temporary dialysis catheter insertion HPI Narrative: SERENA ARMANDO, is a 79 M who presented to the emergency department at [facility] several days ago with history of worsening shortness of breath. Patient has multiple medical problems including chronic kidney disease, chronic macrocytic anemia, hypertension, hyperlipidemia, diabetes, BPH and tobacco abuse. Patient was subsequently admitted to the medicine service. It was noted that his creatinine was elevated and continued to rise during admission. He was seen by nephrology and they are recommending temporary dialysis. They are hoping to do dialysis tomorrow morning. As a result of surgery consult obtained to insert the temporary dialysis catheter. FORMERLY [facility] Medical History Chronic anemia Tobacco use COPD (chronic obstructive pulmonary disease) HLD (hyperlipidemia) HTN (hypertension) BPH (benign prostatic hyperplasia) Chronic low back pain with sciatica Diabetes mellitus, type 2 CKD (chronic kidney disease), stage III Pneumonia COVID Wears glasses Wears dentures Home Medications ?Medication ?Instructions ?Recorded ?Last Taken ?Type amlodipine 10 mg tablet (Norvasc) 10 mg PO 1200 08/12/21 History aspirin 81 mg tablet,delayed 81 mg PO DAILY 08/05/21 U nknown History release insulin glargine 100 unit/mL (3 15 unit subcut QPM 03/21 Unknown History mL) subcutaneous pen (Lantus Solostar U-100 Insulin) insulin lispro 100 unit/mL 0 unit subcut TID SLIDING S JENINFER 08/05/21 Unknown History subcutaneous pen tamsulosin 0.4 mg capsule (Flomax) 0.4 mg PO .COMPLEX urination 08/05/21 Unknown History ezetimibe 10 mg tablet 10 mg PO DAILY 04/06/24 Unkn own History lisinopril 5 mg tablet 5 mg PO DAILY 04/06/24 Unkno wn History metoprolol succinate 25 mg 25 mg PO DAILY 04/06/24 Unk nown History tablet,extended release 24 hr blood sugar diagnostic (Contour 09/12/24 Unknown Hist ory Next Test Strips) potassium chloride 20 mEq 20 meq PO BIDCM 30 days #60 tabs 09/14/24 Unknown Rx tablet,extended release(part/cryst) furosemide 40 mg tablet (Lasix) 40 mg PO DAILY 5 Unknown History hydralazine 50 mg tablet 50 mg PO Q8H 04/03/25 Unknow n History Allergy/AdvReac Type Severity Reaction Status Date / Time Corticosteroids AdvReac Other Verified 04/03/25 00:16 (Glucocorticoids) (steroids) Yoxdtpq-XEB-OjG Reductase AdvReac Other Verified 04/03/25 00:16 Inhibitor (Znypnbx-Kao-Ymz Reductase Inhibitor) Family History Mother COPD (chronic obstructive pulmonary disease) Father CAD (coronary artery disease) Heart disease Surgical History Hx of cystoscopy Hx of colonoscopy Hx of left cataract extraction Hx of right cataract extraction Social History household members: spouse Smoking Status: Current every day smoker tobacco type: cigarettes alcohol intake: never substance use type: does not use Physical Exam Const alert, oriented x3 and no apparent distress General Appearance: cooperative HEENT normocephalic and head/scalp atraumatic Eyes PERRL Neck full ROM Chest inspection of chest normal Resp normal respiratory effort Lab / Micro Data 04/05/25 02:45 04/05/25 13:44 Labs: Laboratory Results - last 24 hr 04/04/25 00:00: Troponin T Hi Sens 2 Hr 2263 H* 04/04/25 21:36: POC Glucose 355 H 04/04/25 21:59: Troponin T High Sens 2204 H* D 04/05/25 02:45: WBC 20.4 H, RBC 2.77 L, Hgb 8.3 L, Hct 25.6 L, MCV 92.4, MCH 30.0, MCHC 32.4, RDW Std Deviation 46.6 H, RDW Coeff of [place] 13.8, Plt Count 255, MPV 11.7, Immature Gran % (Auto) 1.000 H, Neut % (Auto) 85.5 H, Lymph % (Auto) 5.7 L, [place] % (Auto) 7.7, Eos % (Auto) 0.0, Baso % (Auto) 0.1, Absolute Neuts (auto) 17.4 H, Absolute Lymphs (auto) 1.16, Nucleated RBC % 0, Differential Comment SCANNED, Troponin T Hi Sens 4Hr 2425 H* 04/05/25 06:26: POC Glucose 253 H 04/05/25 07:39: POC Glucose 263 H 04/05/25 09:06: Sodium 136, Potassium 6.3 H*, Chloride 102, Carbon Dioxide 15.8 L, Anion Gap 18 H, BUN 96 H, Creatinine 4.68 H, Estim Creat Clear Calc 10.87 L, Est GFR (MDRD) Non-Af 12 L, BUN/Creatinine Ratio 20.5 H, Glucose 223 H, Calcium 8.1 04/05/25 11:05: POC Glucose 239 H 04/05/25 13:14: Urine Color Yellow, Urine Clarity Sl. Cloudy, Urine pH 5.0, Ur Specific [place] 1.020, Urine Protein 100 H, Urine Glucose (UA) Normal, Urine Ketones Negative, Urine Occult Blood 250 H, Urine Nitrite Negative, Urine Bilirubin 1 H, Urine Urobilinogen Normal, Ur Leukocyte Esterase 500 H, Urine RBC > 100 SEEN, Urine WBC 5-10 SEEN, Ur Squamous Epith Cells 0 SEEN, Urine Bacteria 0 SEEN, Urine Mucus 0 SEEN 04/05/25 13:17: POC Glucose 226 H 04/05/25 13:44: Sodium 137, Potassium 5.7 H, Chloride 102, Carbon Dioxide 15.6 L , Anion Gap 19 H, BUN 99 H, Creatinine 4.77 H, Estim Creat Clear Calc 10.67 L, E st GFR (MDRD) Non-Af 12 L, BUN/Creatinine Ratio 20.8 H, Glucose 205 H, Calcium 8.9 Micro: Microbiology 04/03/25 02:25 Blood Culture (Wb) - Anticubital Left Blood Culture - Preliminary No growth in 48 hours. 06/03/25 03:50 Blood Culture (Wb) - Anticubital Left Blood Culture - Preliminary No growth in 48 hours. 04/03/25 05:51 Urine, Clean Catch Urine Culture - Final Culture exhibits no growth. Rhythm Strip Rhythm Strip: Sinus Rhythm Rate: 86 Imaging Radiology Impression Renal Ultrasound 04/04/25 11:33 IMPRESSION: 1. Mild renal cortical thinning bilaterally. No hydronephrosis. 2. Nonobstructing stone in the left kidney measuring 0.5 cm, unchanged. 3. Prostatomegaly with an echogenic nodule measuring 1.9 cm, similar to prior. Correlate with PSA. Reading Location: [id number] Charges/Coding Visit Charges Inpatient E&M: 58991 Init Hosp L3
--- NOTE | 2025-04-05 18:10 | PCM.OPRPT ---
Problems Associated Problem List Diagnoses (1) CKD (chronic kidney disease), stage III: Procedures Cardiovascular CF Procedures [id number]: [id number] Insert tunneled cv cath Operative Report (Standard) Operative Information Date of Procedure: 04/05/25 Pre-Operative Diagnosis: Renal failure Post-Operative Diagnosis: Renal failure Surgery/Procedure Performed: Right internal jugular temporary dialysis catheter insertion with ultrasound electric powerline examiner: No Type of Anesthesia: Local Procedure Start Time: 17:00 Procedure Stop Time: 17:20 Select all DRAINS/GRAFTS/IMPLANTS that apply: Prosthetic device Prosthetic device details: 12 [place] temporary dialysis catheter Estimated Blood Loss: 15 mL Specimen collected: No Description of surgery: After obtaining informed consent, the patient was positioned flat on the hospital bed. An axillary roll was placed near his upper lower back. The patient's head was rolled to the left to expose the right side of the neck. The area was then prepped and draped in the usual sterile manner. Ultrasound was utilized to identify the right internal jugular vein. The area was then injected with local anesthetic. Using the supplied needle and syringe I was able to gain access to the right internal jugular vein. The blood return was a dark red, nonpulsatile, venous appearing blood return. The supplied guidewire was threaded through the aperture and the needle. Patient did develop some ectopy with initial guidewire insertion. This was withdrawn slightly until the ectopy resolved. A small incision was made at the entry point of the guidewire using #11 blade. Dilators supplied in the kit or sequentially inserted. The dialysis catheter was then threaded over the guidewire and advanced. The guidewire was then removed. Both ports were capped/clamped. The catheter was then secured to the skin using the supplied suture. Sterile dressing was then applied. The ports were then flushed with saline. They jb and flushed easily without any resistance to flow. Heparin was then inserted into each port. About 2-1/2 mL were inserted into each port and they were both capped and clamped. Patient tolerated the procedure well. A postprocedure chest x-ray was ordered. Surgical Findings: See procedure note Complications Complications: No Admit VTE Documentation VTE Present on Admission: No VTE Mechan Device Prophylaxis: SCD's VTE Pharm Prophylaxis ordered?: No Reason prophylaxis not ordered: Treatment Not Indicated
[2025-04-05 20:10] LABS: Bedside Glucose 165 mg/dL (74-106)
[2025-04-05] MEDS: 0.9% Normal Saline (250mL Bag) 250 ML 15 ML IV (21:27)
[2025-04-05] MEDS: Ceftriaxone 1 GM/50 ML BAG IV (21:28)
[2025-04-05] MEDS: Azithromycin 500 MG in 0.9% Normal Saline (250mL Bag) 250 ML 255 MG IV (22:21)
[2025-04-05 23:11] LABS: Bedside Glucose 282 mg/dL (74-106)
[2025-04-06] VITALS (28 sets, daily range): BP systolic 89–156; BP diastolic 45–85; PULSE 78–95; RESP 12–19; TEMP 36.3–36.7; O2SAT 92–96; BMI 22.4; BMI 21.8
[2025-04-06] MEDS: hydrALAZINE 50 MG Tablet PO ×2 (06:18→22:59)
[2025-04-06] MEDS: Heparin Injection (Vial) 5,000 UNIT/ML VIAL 5000 UNIT SC ×3 (06:19→22:59)
[2025-04-06] MEDS: Nitroglycerin Oint 1 INCH PACKET 0.5 INCH TD (06:20)
[2025-04-06] MEDS: Insulin Lispro 100 UNIT/ML INSULN.PEN SC ×4 (06:29→23:00)
[2025-04-06 06:41] LABS: Absolute Lymphocyte Count 1.34 X10^3/uL (0.83-4.51); Absolute Neutrophil Count 12.3 X10^3/uL (2.0-7.7); Basophil# 0.01 X10^3/uL; Basophil% 0.1 % (0-1); Hematocrit 23.6 % (40-54); Hemoglobin 7.9 g/dL (13.0-16.5); Lymphocyte # 1.34 X10^3/ul (0.83-4.51); Lymphocyte % 9.1 % (19-41); Mean Corp Hgb Conc 33.5 g/dL (32-36); Mean Corpuscular Hgb 30.7 pg (27.0-32.0); Mean Corpuscular Volume 91.8 fL (80-94); Mean Platelet Vol. 11.9 fl (6.2-12.0); Monocyte# 1.03 X10^3/uL; NRBC Flagged by Analyzer 0 % (0-5); Neutrophil % 83.3 % (47-70); Platelet Count 222 K/mm3 (150-450); RBC Distribution Width CV 13.8 % (11.6-14.6); RBC Distribution Width SD 46.2 fl (35.1-43.9); Red Blood Count 2.57 M/mm3 (4.6-6.2); White Blood Count 14.8 K/mm3 (4.4-11.0)
[2025-04-06 06:54] LABS: Bedside Glucose 281 mg/dL (74-106)
[2025-04-06] MEDS: Ipratropium/Albuterol Sulfate 3 ML AMPUL.NEB INHALATION ×2 (08:10→20:34)
[2025-04-06] MEDS: predniSONE 20 MG Tablet 40 MG PO (08:36)
[2025-04-06] MEDS: Aspirin E.C. 81 MG Tablet PO (08:36)
[2025-04-06] MEDS: Metoprolol(XL)Succ 25 MG Tablet PO (08:37)
[2025-04-06] MEDS: Ezetimibe 10 MG Tablet PO (08:37)
[2025-04-06] MEDS: Insulin Glargine-YFGN 100 UNIT/ML Pen 15 UNIT SC (08:37)
[2025-04-06 09:29] LABS: Anion Gap 18 (5-15); BUN 103 mg/dL (4-19); BUN/Creat Ratio 21.8 RATIO (10-20); Calcium,Total 8.3 mg/dL (7.6-11.0); Chloride 100 mmol/L (98-108); Creatinine, Serum 4.73 mg/dL (0.70-1.20); EST Glomerular Filtration Rate 12 (>60); Estimated Creatinine Clearance 11.24 ml/min (50-250); Glucose 233 mg/dL (70-99); Potassium 4.2 mmol/L (3.3-5.1); Sodium Level 139 mmol/L (133-145)
--- NOTE | 2025-04-06 09:38 | PCM.PN.INT ---
Assessment & Plan Assessment/Plan (1) Acute hypoxic respiratory failure: PLAN: Plan RECOMMENDATIONS: 1. Continue supplemental oxygen to maintain saturations at or above 90%. 2. Empiric BiPAP therapy with naps and nightly. 3. Continue empiric antimicrobials, bronchodilators and steroids. 4. The patient will undoubtedly need to follow-up in the pulmonary medicine clinic so that baseline PFTs can be obtained. 5. Smoking cessation is advisable. 6. Dialysis support per nephrology recommendations. IMPRESSIONS: 1. Acute hypoxemic respiratory failure Clinical concern for multifactorial etiology with possible COPD exacerbation along with possible CHF contributing. The patient has an extensive tobacco abuse history, but has never been formally diagnosed with COPD. He does have evidence of bilateral pleural effusions along with questionable airspace disease, concerning for pneumonia. Accordingly, the patient will be continued on scheduled bronchodilators, antimicrobials and prednisone. Will defer additional medical optimization to cardiology, who is following. Ideally, the patient will need outpatient follow-up in the pulmonary medicine office after discharge so that baseline PFTs can be obtained. 2. Chronic tobacco dependency Tobacco cessation is strongly advised. Recommend outpatient pulmonary follow-up and PFTs. 3. Elevated troponin likely secondary to demand ischemia in the setting of #1 Continue current supportive care per cardiology recommendations. 4. Acute on chronic kidney disease Clinical concern for contrast nephropathy versus ATN. Nephrology is following to assist with hemodialysis needs. 5. History of diabetes mellitus/hypertension/hyperlipidemia/chronic kidney disease/BPH Complicates care, management, recovery and prognosis. Continue home medications as indicated. CODE STATUS: DNR CCA without intubation This note was generated with [employer] dictation software. It may contain incorrect words, spelling, and punctuation that were not noted in checking the note before signing. Subjective Subjective The patient was seen and examined at the bedside this morning. Events from the last 24 hours have been reviewed. The patient is currently afebrile, hemodynamically stable and maintaining appropriate oxygen saturations on 2 L/min via nasal cannula. The patient has no specific complaints this morning. He is documented to be overall net +2.6 L for the hospitalization. White blood cell count was noted to be 15,000 with a hemoglobin of 8.0 g/dL. BUN is elevated at 103 with a creatinine of 4.73. The patient had a temporary hemodialysis catheter placed yesterday to facilitate the initiation of HD. Objective Data Objective Data The patient's most recent lab work, culture data and imaging studies have all been personally reviewed. Surface echocardiogram demonstrated an ejection fraction of 40% with stage I diastolic dysfunction and severe mitral annular calcification. Right ventricular systolic pressure was estimated to be 41 mmHg. Strep and urine Legionella antigens were negative. Respiratory viral panel was negative. Blood and urine cultures have not demonstrated any growth to date. Vital Signs: Vital Signs Temp Pulse Resp BP Pulse Ox O2 Del Method O2 Flow Rate 97.6 F L 91 14 103/55 L 93 Nasal Cannula 2 04/06/25 08:38 04/06/25 08:38 04/06/25 08:38 04/06/25 08:38 04/06/25 08:38 04/06/25 08:38 04/06/25 08:38 FiO2 21 04/06/25 01:10 Oxygen Flow Rate (L/min) 2 Oxygen Delivery Method Nasal Cannula Weight: 143 lb 1.28 oz Body Mass Index (BMI) 22.4 Intake & Output: Intake and Output for Last 24 Hours 04/04/25 04/05/25 04/06/25 23:59 23:59 23:59 Intake Total 1341.85 / 1341.85 885 / 885 1210 / 1210 Output Total 100 / 100 900 / 900 200 / 200 Balance 1241.85 / 1241.85 -15 / -15 1010 / 1010 Lab / Micro Data Attestation: I reviewed the patient's lab results. 04/06/25 06:24 04/06/25 08:40 Labs: Laboratory Results - last 24 hr 04/05/25 07:39: POC Glucose 263 H 04/05/25 09:06: Sodium 136, Potassium 6.3 H*, Chloride 102, Carbon Dioxide 15.8 L, Anion Gap 18 H, BUN 96 H, Creatinine 4.68 H, Estim Creat Clear Calc 10.87 L, Est GFR (MDRD) Non-Af 12 L, BUN/Creatinine Ratio 20.5 H, Glucose 223 H, Calcium 8.1 04/05/25 11:05: POC Glucose 239 H 04/05/25 13:14: Urine Color Yellow, Urine Clarity Sl. Cloudy, Urine pH 5.0, Ur Specific [place] 1.020, Urine Protein 100 H, Urine Glucose (UA) Normal, Urine Ketones Negative, Urine Occult Blood 250 H, Urine Nitrite Negative, Urine Bilirubin 1 H, Urine Urobilinogen Normal, Ur Leukocyte Esterase 500 H, Urine RBC > 100 SEEN, Urine WBC 5-10 SEEN, Ur Squamous Epith Cells 0 SEEN, Urine Bacteria 0 SEEN, Urine Mucus 0 SEEN 04/05/25 13:17: POC Glucose 226 H 04/05/25 13:44: Sodium 137, Potassium 5.7 H, Chloride 102, Carbon Dioxide 15.6 L, Anion Gap 19 H, BUN 99 H, Creatinine 4.77 H, Estim Creat Clear Calc 10.67 L, Est GFR (MDRD) Non-Af 12 L, BUN/Creatinine Ratio 20.8 H, Glucose 205 H, Calcium 8.9 04/05/25 16:51: POC Glucose 165 H 04/05/25 21:35: POC Glucose 282 H 04/06/25 06:24: WBC 14.8 H, RBC 2.57 L, Hgb 7.9 L, Hct 23.6 L, MCV 91.8, MCH 30.7, MCHC 33.5, RDW Std Deviation 46.2 H, RDW Coeff of [place] 13.8, Plt Count 222, MPV 11.9, Immature Gran % (Auto) 0.500, Neut % (Auto) 83.3 H, Lymph % (Auto) 9.1 L, [place] % (Auto) 7.0, Eos % (Auto) 0.0, Baso % (Auto) 0.1, Absolute Neuts (auto) 12.3 H, Absolute Lymphs (auto) 1.34, Nucleated RBC % 0 04/06/25 06:25: POC Glucose 281 H 04/06/25 08:40: Sodium 139, Potassium 4.2, Chloride 100, Carbon Dioxide 21.0, Anion Gap 18 H, BUN 103 H*, Creatinine 4.73 H, Estim Creat Clear Calc 11.24 L, Est GFR (MDRD) Non-Af 12 L, BUN/Creatinine Ratio 21.8 H, Glucose 233 H, Calcium 8.3 Micro: Microbiology 04/03/25 02:25 Blood Culture (Wb) - Anticubital Left Blood Culture - Preliminary No growth in 48 hours. 04/03/25 03:50 Blood Culture (Wb) - Anticubital Left Blood Culture - Preliminary No growth in 48 hours. 04/03/25 05:51 Urine, Clean Catch Urine Culture - Final Culture exhibits no growth. 04/03/25 05:46 Wound - Elbow Skin and Soft Tissue MRSA/MSSA (PCR - Final 04/03/25 05:10 Mucosa - Nasopharyngeal Respiratory Panel (PCR) - Final 04/03/25 05:51 Urine, Clean Catch Legionella Antigen - Final 04/03/25 05:51 Urine Catheter - Catheter Streptococcus pneumoniae Antigen (M - Final 04/03/25 00:25 Mucosa - Nose SARS-CoV-2, Influenza & RSV (PCR) - Final Radiography Diagnostic Testing: Radiology Impression Chest X-Ray 04/05/25 18:02 IMPRESSION: Interval insertion of right IJ line with tip at SVC, likely in appropriate position. Lung findings are grossly unchanged. Reading Location: [facility] Rhythm Strip Rhythm Strip: Sinus Rhythm Rate: 86 Physical Exam Const alert, oriented x3 and no apparent distress HEENT normocephalic, head/scalp atraumatic and moist oral mucous membranes Eyes PERRL, EOMs intact bilaterally and conjunctivae normal Neck supple General: trachea midline and CVC in place Chest inspection of chest normal Resp normal respiratory effort and no use of accessory muscles Auscultation: rales and diminished lung sounds Cardio regular rate, S1 normal heart sound and S2 normal heart sound GI normal to inspection, nondistended, normoactive bowel sounds Extremity no clubbing, cyanosis or edema Skin Skin Narrative: Wrapped lower extremities. Neuro CN's II-XII intact bilaterally, moves all extremities and no focal motor deficits Psych cooperative and affect normal Charges/Coding Visit Charges Inpatient E&M: 92727 Subs Hosp L2
[2025-04-06] MEDS: 0.9% Normal Saline 1,000 ML IV.SOLN. 1000 ML OPERA.SITE (10:15)
[2025-04-06] MEDS: PureFlow B 3K Dialysis Soln 1 BAG 6 BAG PF (10:15)
--- NOTE | 2025-04-06 11:17 | PCM.PN.REN ---
Documented by User: AURY Davison 04/06/25 11:24 Subjective Subjective Patient had temporary hemodialysis catheter placed. Patient seen on dialysis today. and family at bedside. No complaints. Objective Data Objective Data Vital Signs: Vital Signs Temp Pulse Resp BP Pulse Ox O2 Del Method O2 Flow Rate 97.6 F L 86 15 125/74 H 95 Nasal Cannula 2 04/06/25 10:30 04/06/25 11:00 04/06/25 11:00 04/06/25 11:00 04/06/25 11:00 04/06/25 11:00 04/06/25 11:00 FiO2 21 04/06/25 01:10 Oxygen Flow Rate (L/min) 2 Oxygen Delivery Method Nasal Cannula Weight: 64.9 kg Body Mass Index (BMI) 22.4 Intake & Output: Intake and Output for Last 24 Hours 04/04/25 04/05/25 04/06/25 23:59 23:59 23:59 Intake Total 1341.85 / 1341.85 885 / 885 1460 / 1460 Output Total 100 / 100 900 / 900 300 / 300 Balance 1241.85 / 1241.85 -15 / -15 1160 / 1160 Lab / Micro Data 04/06/25 06:24 04/06/25 08:40 Labs: Laboratory Results - last 24 hr 04/05/25 07:39: POC Glucose 263 H 04/05/25 11:05: POC Glucose 239 H 04/05/25 13:14: Urine Color Yellow, Urine Clarity Sl. Cloudy, Urine pH 5.0, Ur Specific [place] 1.020, Urine Protein 100 H, Urine Glucose (UA) Normal, Urine Ketones Negative, Urine Occult Blood 250 H, Urine Nitrite Negative, Urine Bilirubin 1 H, Urine Urobilinogen Normal, Ur Leukocyte Esterase 500 H, Urine RBC > 100 SEEN, Urine WBC 5-10 SEEN, Ur Squamous Epith Cells 0 SEEN, Urine Bacteria 0 SEEN, Urine Mucus 0 SEEN 04/05/25 13:17: POC Glucose 226 H 04/05/25 13:44: Sodium 137, Potassium 5.7 H, Chloride 102, Carbon Dioxide 15.6 L, Anion Gap 19 H, BUN 99 H, Creatinine 4.77 H, Estim Creat Clear Calc 10.67 L, Est GFR (MDRD) Non-Af 12 L, BUN/Creatinine Ratio 20.8 H, Glucose 205 H, Calcium 8.9 04/05/25 16:51: POC Glucose 165 H 04/05/25 21:35: POC Glucose 282 H 04/06/25 06:24: WBC 14.8 H, RBC 2.57 L, Hgb 7.9 L, Hct 23.6 L, MCV 91.8, MCH 30.7, MCHC 33.5, RDW Std Deviation 46.2 H, RDW Coeff of [place] 13.8, Plt Count 222, MPV 11.9, Immature Gran % (Auto) 0.500, Neut % (Auto) 83.3 H, Lymph % (Auto) 9.1 L, [place] % (Auto) 7.0, Eos % (Auto) 0.0, Baso % (Auto) 0.1, Absolute Neuts (auto) 12.3 H, Absolute Lymphs (auto) 1.34, Nucleated RBC % 0 04/06/25 06:25: POC Glucose 281 H 04/06/25 08:40: Sodium 139, Potassium 4.2, Chloride 100, Carbon Dioxide 21.0, Anion Gap 18 H, BUN 103 H*, Creatinine 4.73 H, Estim Creat Clear Calc 11.24 L, Est GFR (MDRD) Non-Af 12 L, BUN/Creatinine Ratio 21.8 H, Glucose 233 H, Calcium 8.3 Micro: Microbiology 04/03/25 02:25 Blood Culture (Wb) - Anticubital Left Blood Culture - Preliminary No growth in 48 hours. 04/03/25 03:50 Blood Culture (Wb) - Anticubital Left Blood Culture - Preliminary No growth in 48 hours. 04/03/25 05:51 Urine, Clean Catch Urine Culture - Final Culture exhibits no growth. 04/03/25 05:46 Wound - Elbow Skin and Soft Tissue MRSA/MSSA (PCR - Final 04/03/25 05:10 Mucosa - Nasopharyngeal Respiratory Panel (PCR) - Final 04/03/25 05:51 Urine, Clean Catch Legionella Antigen - Final 04/03/25 05:51 Urine Catheter - Catheter Streptococcus pneumoniae Antigen (M - Final 04/03/25 00:25 Mucosa - Nose SARS-CoV-2, Influenza & RSV (PCR) - Final Radiography Diagnostic Testing: Radiology Impression Chest X-Ray 04/05/25 18:02 IMPRESSION: Interval insertion of right IJ line with tip at SVC, likely in appropriate position. Lung findings are grossly unchanged. Reading Location: [facility] Rhythm Strip Rhythm Strip: Sinus Rhythm Rate: 86 Physical Exam Narrative Alert and oriented x 3, no apparent distress S1, S2, RRR Diminished breath sounds. On O2 nasal cannula Abdomen soft, nontender, nondistended No edema No-ntunneled temporary right IJ hemodialysis catheter accessed for dialysis Assessment & Plan Assessment/Plan (1) MADONNA (acute kidney injury): (2) CKD (chronic kidney disease), stage III: QUALIFIERS: Chronic kidney disease stage 3 subtype: stage 3b (GFR 30-44) Qualified Code(s): N18.32 - Chronic kidney disease, stage 3b (3) Acute hypoxic respiratory failure: PLAN: Plan This is an 79-year-old male with past medical history significant for hypertension, CKD stage III (followed by Dr. Solomon in [place]), COPD, diabetes mellitus admitted to the hospital for acute hypoxic respiratory failure, multifactorial from COPD and/or pneumonia and/or possible heart failure contributing. Nephrology consulted in view of elevated creatinine. Baseline creatinine is around 1.8 mg/dL range. Creatinine was 1.8 on admission received contrast on admit Renal US no hydronephrosis UA showed leukocyte esterase, RBC, 100 protein - presumably MADONNA due to contrast nephropathy vs ATN. due to lack of urine output and worsening renal failure patient needs temporary dialysis. Creatinine 4.7, BUN 103. Non-tunneled HD catheter placed. Patient undergoing hemodialysis today over 2.5 hours and attempting around 1 L fluid removal. Will plan for dialysis tomorrow over 3 hours and attempt fluid removal as patient/blood pressure tolerates. Continue to monitor for renal recovery. Stop bicarb drip. Discussed nephrology plan with patient and his . Questions answered. Assessment and plan reviewed with Dr. Thompson. Documented by User: Dr. Denisha Thompson MD 04/06/25 16:18 Objective Data Lab / Micro Data 04/06/25 06:24 04/06/25 08:40 Assessment & Plan Assessment/Plan (1) MADONNA (acute kidney injury): (2) CKD (chronic kidney disease), stage III: QUALIFIERS: Chronic kidney disease stage 3 subtype: stage 3b (GFR 30-44) Qualified Code(s): N18.32 - Chronic kidney disease, stage 3b (3) Acute hypoxic respiratory failure: PLAN: Plan This is an 79-year-old male with past medical history significant for hypertension, CKD stage III (followed by Dr. Solomon in [place]), COPD, diabetes mellitus admitted to the hospital for acute hypoxic respiratory failure, multifactorial from COPD and/or pneumonia and/or possible heart failure contributing. Nephrology consulted in view of elevated creatinine. Baseline creatinine is around 1.8 mg/dL range. Creatinine was 1.8 on admission received contrast on admit Renal US no hydronephrosis UA showed leukocyte esterase, RBC, 100 protein - presumably MADONNA due to contrast nephropathy vs ATN. due to lack of urine output and worsening renal failure patient needs temporary dialysis. Creatinine 4.7, BUN 103. Non-tunneled HD catheter placed. Patient undergoing hemodialysis today over 2.5 hours and attempting around 1 L fluid removal. Will plan for dialysis tomorrow over 3 hours and attempt fluid removal as patient/blood pressure tolerates. Continue to monitor for renal recovery. Stop bicarb drip. Discussed nephrology plan with patient and his . Questions answered. Assessment and plan reviewed with Dr. Thompson. jr [employer]. BAKARI is typically short lived. hopefully will recover soon. HD today. will reevaluate tomorrow
--- NOTE | 2025-04-06 11:23 | PCM.PN.SRG ---
Subjective Subjective Patient seen on rounds this morning. Dialysis catheter is currently being used without any issues per dialysis nurse. He has no new complaints Objective Data Objective Data Vital Signs: Vital Signs Temp Pulse Resp BP Pulse Ox O2 Del Method O2 Flow Rate 97.6 F L 86 15 132/74 H 95 Nasal Cannula 2 04/06/25 10:30 04/06/25 11:15 04/06/25 11:15 04/06/25 11:15 04/06/25 11:15 04/06/25 11:15 04/06/25 11:15 FiO2 21 04/06/25 01:10 Oxygen Flow Rate (L/min) 2 Oxygen Delivery Method Nasal Cannula Weight: 143 lb 1.28 oz Body Mass Index (BMI) 22.4 Intake & Output: Intake and Output for Last 24 Hours 04/04/25 04/05/25 04/06/25 23:59 23:59 23:59 Intake Total 1341.85 / 1341.85 885 / 885 1460 / 1460 Output Total 100 / 100 900 / 900 300 / 300 Balance 1241.85 / 1241.85 -15 / -15 1160 / 1160 Lab / Micro Data 04/06/25 06:24 04/06/25 08:40 Labs: Laboratory Results - last 24 hr 04/05/25 07:39: POC Glucose 263 H 04/05/25 11:05: POC Glucose 239 H 04/05/25 13:14: Urine Color Yellow, Urine Clarity Sl. Cloudy, Urine pH 5.0, Ur Specific [place] 1.020, Urine Protein 100 H, Urine Glucose (UA) Normal, Urine Ketones Negative, Urine Occult Blood 250 H, Urine Nitrite Negative, Urine Bilirubin 1 H, Urine Urobilinogen Normal, Ur Leukocyte Esterase 500 H, Urine RBC > 100 SEEN, Urine WBC 5-10 SEEN, Ur Squamous Epith Cells 0 SEEN, Urine Bacteria 0 SEEN, Urine Mucus 0 SEEN 04/05/25 13:17: POC Glucose 226 H 04/05/25 13:44: Sodium 137, Potassium 5.7 H, Chloride 102, Carbon Dioxide 15.6 L, Anion Gap 19 H, BUN 99 H, Creatinine 4.77 H, Estim Creat Clear Calc 10.67 L, Est GFR (MDRD) Non-Af 12 L, BUN/Creatinine Ratio 20.8 H, Glucose 205 H, Calcium 8.9 04/05/25 16:51: POC Glucose 165 H 04/05/25 21:35: POC Glucose 282 H 04/06/25 06:24: WBC 14.8 H, RBC 2.57 L, Hgb 7.9 L, Hct 23.6 L, MCV 91.8, MCH 30.7, MCHC 33.5, RDW Std Deviation 46.2 H, RDW Coeff of [place] 13.8, Plt Count 222, MPV 11.9, Immature Gran % (Auto) 0.500, Neut % (Auto) 83.3 H, Lymph % (Auto) 9.1 L, [place] % (Auto) 7.0, Eos % (Auto) 0.0, Baso % (Auto) 0.1, Absolute Neuts (auto) 12.3 H, Absolute Lymphs (auto) 1.34, Nucleated RBC % 0 04/06/25 06:25: POC Glucose 281 H 04/06/25 08:40: Sodium 139, Potassium 4.2, Chloride 100, Carbon Dioxide 21.0, Anion Gap 18 H, BUN 103 H*, Creatinine 4.73 H, Estim Creat Clear Calc 11.24 L, Est GFR (MDRD) Non-Af 12 L, BUN/Creatinine Ratio 21.8 H, Glucose 233 H, Calcium 8.3 Micro: Microbiology 04/03/25 02:25 Blood Culture (Wb) - Anticubital Left Blood Culture - Preliminary No growth in 48 hours. 04/03/25 03:50 Blood Culture (Wb) - Anticubital Left Blood Culture - Preliminary No growth in 48 hours. 04/03/25 05:51 Urine, Clean Catch Urine Culture - Final Culture exhibits no growth. 04/03/25 05:46 Wound - Elbow Skin and Soft Tissue MRSA/MSSA (PCR - Final 04/03/25 05:10 Mucosa - Nasopharyngeal Respiratory Panel (PCR) - Final 04/03/25 05:51 Urine, Clean Catch Legionella Antigen - Final 04/03/25 05:51 Urine Catheter - Catheter Streptococcus pneumoniae Antigen (M - Final 04/03/25 00:25 Mucosa - Nose SARS-CoV-2, Influenza & RSV (PCR) - Final Radiography Diagnostic Testing: Radiology Impression Chest X-Ray 04/05/25 18:02 IMPRESSION: Interval insertion of right IJ line with tip at SVC, likely in appropriate position. Lung findings are grossly unchanged. Reading Location: [facility] Rhythm Strip Rhythm Strip: Sinus Rhythm Rate: 86 Physical Exam Narrative He is alert and oriented x 3. No acute distress. Right IJ catheter in place. Patient currently hooked up to dialysis machine. No bleeding or evidence of infection Assessment & Plan Assessment/Plan (1) MADONNA (acute kidney injury): PLAN: Plan The patient is an 79-year-old male with acute kidney injury. Temporary dialysis catheter was placed last evening. This seems to be working fine. Continue dialysis per nephrology. No surgical plans. Will sign off
[2025-04-06] MEDS: Heparin 10,000 UNITS/10 ML Vial IV (12:13)
[2025-04-06 12:21] LABS: Bedside Glucose 225 mg/dL (74-106)
[2025-04-06 16:34] LABS: Magnesium 2.8 mg/dL (1.5-2.2); Phosphorus 7.1 mg/dL (2.7-4.5)
[2025-04-06 16:37] LABS: Bedside Glucose 269 mg/dL (74-106)
--- NOTE | 2025-04-06 18:18 | PN.HOSP_ITS ---
Subjective Subjective Doing well, no issues overnight currently resting comfortably after dialysis Objective Data Objective Data Vital Signs: Vital Signs Temp Pulse Resp BP Pulse Ox O2 Del Method O2 Flow Rate 97.7 F L 88 16 124/54 H 92 Nasal Cannula 2 04/06/25 16:30 04/06/25 16:30 04/06/25 16:30 04/06/25 16:30 04/06/25 16:30 04/06/25 16:30 04/06/25 16:30 FiO2 21 04/06/25 01:10 Oxygen Flow Rate (L/min) 2 Oxygen Delivery Method Nasal Cannula Weight: 139 lb 8.842 oz Body Mass Index (BMI) 21.8 Intake & Output: Intake and Output for Last 24 Hours 04/05/25 04/06/25 04/07/25 03:59 03:59 03:59 Intake Total 1328.73 / 1328.73 945 / 945 1900 / 1900 Output Total 500 / 500 700 / 700 1850 / 1850 Balance 828.73 / 828.73 245 / 245 50 / 50 Lab / Micro Data 04/06/25 06:24 04/06/25 08:40 Labs: Laboratory Results - last 24 hr 04/05/25 16:51: POC Glucose 165 H 04/05/25 21:35: POC Glucose 282 H 04/06/25 06:24: WBC 14.8 H, RBC 2.57 L, Hgb 7.9 L, Hct 23.6 L, MCV 91.8, MCH 30.7, MCHC 33.5, RDW Std Deviation 46.2 H, RDW Coeff of [place] 13.8, Plt Count 222, MPV 11.9, Immature Gran % (Auto) 0.500, Neut % (Auto) 83.3 H, Lymph % (Auto) 9.1 L, [place] % (Auto) 7.0, Eos % (Auto) 0.0, Baso % (Auto) 0.1, Absolute Neuts (auto) 12.3 H, Absolute Lymphs (auto) 1.34, Nucleated RBC % 0 04/06/25 06:25: POC Glucose 281 H 04/06/25 08:40: Sodium 139, Potassium 4.2, Chloride 100, Carbon Dioxide 21.0, A nion Gap 18 H, BUN 103 H*, Creatinine 4.73 H, Estim Creat Clear Calc 11.24 L, E st GFR (MDRD) Non-Af 12 L, BUN/Creatinine Ratio 21.8 H, Glucose 233 H, Calcium 8.3, Phosphorus 7.1 H, Magnesium 2.8 H 04/06/25 11:39: POC Glucose 225 H 04/06/25 16:09: POC Glucose 269 H Micro: Microbiology 04/03/25 02:25 Blood Culture (Wb) - Anticubital Left Blood Culture - Preliminary No growth in 48 hours. 04/03/25 03:50 Blood Culture (Wb) - Anticubital Left Blood Culture - Preliminary No growth in 48 hours. 04/03/25 05:51 Urine, Clean Catch Urine Culture - Final Culture exhibits no growth. 04/03/25 05:46 Wound - Elbow Skin and Soft Tissue MRSA/MSSA (PCR - Final 04/03/25 05:10 Mucosa - Nasopharyngeal Respiratory Panel (PCR) - Final 04/03/25 05:51 Urine, Clean Catch Legionella Antigen - Final 04/03/25 05:51 Urine Catheter - Catheter Streptococcus pneumoniae Antigen (M - Final 04/03/25 00:25 Mucosa - Nose SARS-CoV-2, Influenza & RSV (PCR) - Final Radiography Diagnostic Testing: Radiology Impression Chest X-Ray 04/05/25 18:02 IMPRESSION: Interval insertion of right IJ line with tip at SVC, likely in appropriate position. Lung findings are grossly unchanged. Reading Location: [facility] Rhythm Strip Rhythm Strip: Sinus Rhythm Rate: 86 Physical Exam Narrative General: Alert, Oriented x3, Cooperative, No apparent distress HEENT: Atraumatic, PERRLA, EOMI, Normocephalic Oral: Moist Mucosa Neck: Supple, No JVD, right temporary dialysis catheter Lungs: Diminished, Normal air movement, No rhonchi, No wheeze, No rales Cardiovascular: Regular rate, Regular Rhythm, Normal S1, Normal S2, No murmurs Abdomen: Soft, Non Tender, Non-Distended, No Hepato-splenomegaly Extremities: No edema, Capillary Refill Less than 3 Seconds Skin: Lower extremities are wrapped Musculoskeletal: No Tenderness to Palpation of Joints or Extremities Neurological: No focal neurological deficits, moves all extremities Psych/Mental Status: Normal Affect, Appropriate Assessment & Plan Assessment/Plan (1) Acute hypoxic respiratory failure: PLAN: Plan #Acute hypoxic respiratory failure due to acute on chronic COPD examination and probable heart failure as well as superimposed pneumonia * back on BIPAP this morning due to worsening shortness of breath. * sputum cultures pending. Urine for strep and legionella negative. Respiratory panel negative. * breathing treatment with bronchodilators. Titrate oxygen to maintain sats >90% * critical care on board. * 2D echo ordered showed EF of 40% with LV hypokinesis and stage I diastolic dysfunction and RVSP of 41mmHg. * cardiology consulted. Per cardiology he had a cardiac cath 2 years ago at [place] and was told he had 2 blockages which were not amenable to revascularization. Records requested from [place]. Further management as per cardiology. 04/06/2025: Breath sounds are improving and he is maintaining nasal cannula after dialysis #Elevated cardiac enzymes: * initial troponin was 58, and only peaked at 76. 2D echo as above. * Further records requested from [place] as above * cardiology on board 04/06/2025: [place] to be due to demand ischemia though he is in the setting of renal failure. No further recommendations #MADONNA on CKD III with hyperkalemia * Cr trended up further to 4.63 today. Potassium is also elevated at 6.3 * lasix and lisinopril on hold. Potassium also held * Henley catheter in situ. Patient given hyperkalemia protocol and also given Kayexalate. * Nephrology started patient on sodium bicarb this morning also. Patient counseled that if these measures do not help then he will need to start temporary dialysis. * will repeat BMP after kayexalate to monitor potassium 04/06/2025: Continue with dialysis, appreciate nephrology's assistance. He had a temporary dialysis catheter placed on 04/05/2025 #Leukocytosis: WBCs at 20 today, down from 22 yesterday. Likely due to IV steroid she is receiving. Will monitor.. Switch to PO prednisone. 04/06/2025: Will continue with empiric antibiotics, his leukocytosis continues to improve is down to 14 today #Type 2 diabetes mellitus: on lantus. ISS. Accuchecks ACHS #Hyperlipidemia: on ezetimibe #Nicotine dependence: counseled to quit. Nicotine patch prn. DVT: Heparin Charges/Coding Visit Charges Inpatient E&M: 76532 Subs Hosp L2
[2025-04-06] MEDS: 0.9% Saline Lock 10 ML Syringe IV (22:27)
[2025-04-06] MEDS: Ceftriaxone 1 GM/50 ML BAG IV (22:51)
[2025-04-06] MEDS: Azithromycin 500 MG in 0.9% Normal Saline (250mL Bag) 250 ML 255 MG IV (23:33)
[2025-04-07] VITALS (26 sets, daily range): BP systolic 99–148; BP diastolic 47–106; PULSE 65–95; RESP 11–20; TEMP 36.5–36.9; O2SAT 93–99; BMI 22.0; BMI 21.0
[2025-04-07 00:46] LABS: Bedside Glucose 280 mg/dL (74-106)
[2025-04-07] MEDS: Heparin Injection (Vial) 5,000 UNIT/ML VIAL 5000 UNIT SC ×2 (06:40→13:23)
[2025-04-07] MEDS: hydrALAZINE 50 MG Tablet PO ×2 (06:40→21:18)
[2025-04-07] MEDS: Insulin Lispro 100 UNIT/ML INSULN.PEN SC ×4 (06:46→21:18)
[2025-04-07 07:18] LABS: Absolute Neutrophil Count 8.2 X10^3/uL (2.0-7.7); Eosinophil# 0.01 X10^3/uL; Eosinophils% 0.1 % (0-5); Hematocrit 23.1 % (40-54); Hemoglobin 7.7 g/dL (13.0-16.5); Lymphocyte % 12.6 % (19-41); Mean Corp Hgb Conc 33.3 g/dL (32-36); Mean Corpuscular Hgb 30.8 pg (27.0-32.0); Mean Corpuscular Volume 92.4 fL (80-94); Mean Platelet Vol. 12.3 fl (6.2-12.0); Monocyte# 0.83 X10^3/uL; NRBC Flagged by Analyzer 0 % (0-5); Neutrophil # 8.18 X10^3/uL (2.7-7.7); Platelet Count 191 K/mm3 (150-450); RBC Distribution Width CV 13.7 % (11.6-14.6); RBC Distribution Width SD 46.1 fl (35.1-43.9); White Blood Count 10.4 K/mm3 (4.4-11.0)
[2025-04-07 07:32] LABS: Anion Gap 16 (5-15); BUN 80 mg/dL (4-19); BUN/Creat Ratio 22.1 RATIO (10-20); Calcium,Total 8.2 mg/dL (7.6-11.0); Carbon Dioxide 21.3 mmol/L (21.0-32.0); Chloride 99 mmol/L (98-108); Creatinine, Serum 3.61 mg/dL (0.70-1.20); EST Glomerular Filtration Rate 16 (>60); Glucose 423 mg/dL (70-99); Potassium 4.3 mmol/L (3.3-5.1); Sodium Level 137 mmol/L (133-145)
[2025-04-07] MEDS: Ipratropium/Albuterol Sulfate 3 ML AMPUL.NEB INHALATION ×3 (07:39→19:53)
[2025-04-07 11:27] LABS: Bedside Glucose 392 mg/dL (74-106)
[2025-04-07] MEDS: 0.9% Saline Lock 10 ML Syringe IV ×2 (11:28→21:19)
[2025-04-07] MEDS: PureFlow B 2K Dialysis Soln 1 BAG 6 BAG PF (11:29)
[2025-04-07] MEDS: 0.9% Normal Saline 1,000 ML IV.SOLN. 1000 ML OPERA.SITE (11:29)
[2025-04-07] MEDS: Heparin 10,000 UNITS/10 ML Vial IV (11:30)
--- NOTE | 2025-04-07 13:06 | CASEMGMT ---
Social Work SW checked in w/pt, is present. Pt does plan to return home, does not feel that he will need SNF at discharge. in agreement w/the plan, she states pt was able to get up and walk in the [place] with therapy today. SW remains available should the plan change, otherwise plan will continue to be for pt to return home at discharge. TATIANA Mccarty
[2025-04-07] MEDS: Metoprolol(XL)Succ 25 MG Tablet PO (13:14)
[2025-04-07] MEDS: Aspirin E.C. 81 MG Tablet PO (13:14)
[2025-04-07] MEDS: Ezetimibe 10 MG Tablet PO (13:15)
[2025-04-07] MEDS: predniSONE 20 MG Tablet 40 MG PO (13:15)
[2025-04-07] MEDS: Insulin Glargine-YFGN 100 UNIT/ML Pen 15 UNIT SC (13:20)
[2025-04-07] MEDS: amLODIPine 10 MG Tablet PO (13:22)
--- NOTE | 2025-04-07 14:50 | PCM.PN.HOSP ---
Subjective Subjective Doing well, no issues overnight. Feels little bit tired Objective Data Objective Data Vital Signs: Vital Signs Temp Pulse Resp BP Pulse Ox O2 Del Method O2 Flow Rate 98.3 F 88 16 127/47 H 95 Nasal Cannula 2 04/07/25 11:45 04/07/25 13:38 04/07/25 13:38 04/07/25 13:23 04/07/25 12:50 04/07/25 11:45 04/07/25 12:50 FiO2 21 04/06/25 01:10 Oxygen Flow Rate (L/min) 2 Oxygen Delivery Method Nasal Cannula Weight: 134 lb 7.712 oz Body Mass Index (BMI) 21.0 Intake & Output: Intake and Output for Last 24 Hours 04/06/25 04/07/25 04/08/25 03:59 03:59 03:59 Intake Total 945 / 945 2205 / 2205 Output Total 700 / 700 2150 / 2150 3080 / 3080 Balance 245 / 245 55 / 55 -3080 / -3080 Lab / Micro Data 04/07/25 06:25 04/07/25 06:25 Labs: Laboratory Results - last 24 hr 04/06/25 08:40: Phosphorus 7.1 H, Magnesium 2.8 H 04/06/25 16:09: POC Glucose 269 H 04/06/25 22:58: POC Glucose 280 H 04/07/25 06:25: WBC 10.4, RBC 2.50 L, Hgb 7.7 L, Hct 23.1 L, MCV 92.4, MCH 30.8, MCHC 33.3, RDW Std Deviation 46.1 H, RDW Coeff of [place] 13.7, Plt Count 191, MPV 12.3 H, Immature Gran % (Auto) 0.300, Neut % (Auto) 79.0 H, Lymph % (Auto) 12.6 L, [place] % (Auto) 8.0, Eos % (Auto) 0.1, Baso % (Auto) 0.0, Absolute Neuts (auto) 8.2 H, Absolute Lymphs (auto) 1.30, Nucleated RBC % 0, Sodium 137, Potassium 4.3, Chloride 99, Carbon Dioxide 21.3, Anion Gap 16 H, BUN 80 H, Creatinine 3.61 H, Estim Creat Clear Calc 14.50 L, Est GFR (MDRD) Non-Af 16 L, BUN/Creatinine Ratio 22.1 H, Glucose 423 H, Calcium 8.2 04/07/25 06:46: POC Glucose 392 H Micro: Microbiology 04/03/25 02:25 Blood Culture (Wb) - Anticubital Left Blood Culture - Preliminary No growth in 48 hours. 04/03/25 03:50 Blood Culture (Wb) - Anticubital Left Blood Culture - Preliminary No growth in 48 hours. 04/03/25 05:51 Urine, Clean Catch Urine Culture - Final Culture exhibits no growth. 04/03/25 05:46 Wound - Elbow Skin and Soft Tissue MRSA/MSSA (PCR - Final 04/03/25 05:10 Mucosa - Nasopharyngeal Respiratory Panel (PCR) - Final 04/03/25 05:51 Urine, Clean Catch Legionella Antigen - Final 04/03/25 05:51 Urine Catheter - Catheter Streptococcus pneumoniae Antigen (M - Final 04/03/25 00:25 Mucosa - Nose SARS-CoV-2, Influenza & RSV (PCR) - Final Rhythm Strip Rhythm Strip: Sinus Rhythm Rate: 86 Physical Exam Narrative General: Alert, Oriented x3, Cooperative, No apparent distress HEENT: Atraumatic, PERRLA, EOMI, Normocephalic Oral: Moist Mucosa Neck: Supple, No JVD, right temporary dialysis catheter Lungs: Diminished, Normal air movement, No rhonchi, No wheeze, No rales Cardiovascular: Regular rate, Regular Rhythm, Normal S1, Normal S2, No murmurs Abdomen: Soft, Non Tender, Non-Distended, No Hepato-splenomegaly Extremities: No edema, Capillary Refill Less than 3 Seconds Skin: Lower extremities are wrapped Musculoskeletal: No Tenderness to Palpation of Joints or Extremities Neurological: No focal neurological deficits, moves all extremities Psych/Mental Status: Normal Affect, Appropriate Assessment & Plan Assessment/Plan (1) Acute hypoxic respiratory failure: PLAN: Plan #Acute hypoxic respiratory failure due to acute on chronic COPD examination and probable heart failure as well as superimposed pneumonia back on BIPAP this morning due to worsening shortness of breath. sputum cultures pending. Urine for strep and legionella negative. Respiratory panel negative. breathing treatment with bronchodilators. Titrate oxygen to maintain sats >90% critical care on board. 2D echo ordered showed EF of 40% with LV hypokinesis and stage I diastolic dysfunction and RVSP of 41mmHg. cardiology consulted. Per cardiology he had a cardiac cath 2 years ago at [place] and was told he had 2 blockages which were not amenable to revascularization. Records requested from [place]. Further management as per cardiology. 04/06/2025: Breath sounds are improving and he is maintaining nasal cannula after dialysis 04/07/2025: Maintaining on nasal cannula. He states that he feels weak, PT and OT are on board #Anemia ? Unclear etiology at the moment but he has been trending down since admission ? Will initiate workup today with iron studies as well as a fecal occult, and will cover with PPI since he is on steroids ? There is no GI coverage this weekend however he does appear stable #Elevated cardiac enzymes: initial troponin was 58, and only peaked at 76. 2D echo as above. Further records requested from [place] as above cardiology on board 04/06/2025: [place] to be due to demand ischemia though he is in the setting of renal failure. No further recommendations #MADONNA on CKD III Cr trended up further to 4.63 today. Potassium is also elevated at 6.3 lasix and lisinopril on hold. Potassium also held Henley catheter in situ. Patient given hyperkalemia protocol and also given Kayexalate. Nephrology started patient on sodium bicarb this morning also. Patient counseled that if these measures do not help then he will need to start temporary dialysis. will repeat BMP after kayexalate to monitor potassium 04/06/2025: Continue with dialysis, appreciate nephrology's assistance. He had a temporary dialysis catheter placed on 04/05/2025 04/07/2025: Renal function continues to improve with temporary dialysis #Leukocytosis: WBCs at 20 today, down from 22 yesterday. Likely due to IV steroid she is receiving. Will monitor.. Switch to PO prednisone. 04/06/2025: Will continue with empiric antibiotics, his leukocytosis continues to improve is down to 14 today 04/07/2025: White count has normalized, culture data so far is negative still awaiting sputum samples. #Type 2 diabetes mellitus: on lantus. ISS. Accuchecks ACHS #Hyperlipidemia: on ezetimibe #Nicotine dependence: counseled to quit. Nicotine patch prn. DVT: SCDs Charges/Coding Visit Charges Inpatient E&M: 24887 Subs Hosp L2
[2025-04-07] MEDS: Pantoprazole Sodium 40 MG in 0.9% Normal Saline (100mL MB+) 100 ML 330 MG IV (15:42)
[2025-04-07] MEDS: Tamsulosin HCl 0.4 MG Capsule PO (16:23)
[2025-04-07 16:43] LABS: Bedside Glucose 333 mg/dL (74-106)
--- NOTE | 2025-04-07 17:17 | PCM.PN.TICU ---
Objective Data Objective Data Vital Signs: Vital Signs Last response Temperature 36.8 C 04/07/25 15:30 Temperature Source Temporal 04/07/25 15:30 Pulse Rate 80 04/07/25 15:30 Pulse Strength Normal (2+) 04/06/25 10:00 Respiratory Rate 14 04/07/25 15:30 Respiratory Effort Normal, Non-Labored 04/07/25 16:00 Respiratory Depth Normal 04/07/25 16:00 Respiratory Pattern Normal 04/07/25 16:00 Blood Pressure 129/48 H 04/07/25 15:30 Blood Pressure Mean 75 04/07/25 15:30 Blood Pressure Source Monitor 04/07/25 15:30 Blood Pressure Position Supine 04/07/25 15:30 Blood Pressure Location Left Arm 04/07/25 11:45 Pulse Ox 93 04/07/25 15:30 Oxygen Delivery Method Nasal Cannula 04/07/25 16:00 Oxygen Flow Rate (L/min) 2 04/07/25 16:00 Fraction of Inspired Oxygen (FIO2) 21 04/06/25 01:10 I&O: I&O Last 24 Hours 04/06/25 04/07/25 04/07/25 23:59 11:59 23:59 Intake Total 550 / 2010 255 / 595 340 / 595 Output Total 1750 / 0 3380 / 3490 110 / 3490 Balance -1200 / -40 -3125 / -2895 230 / -2895 I&O: Total Stay 04/02/25 23:59 thru 04/07/25 16:01 Intake Total 5545.73 Output Total 6890 Balance -1344.27 Current Meds Ordered / Administered: Current meds ordered / Administered Generic Name Dose Route Start Last Admin Trade Name Freq PRN Reason Stop Dose Admin Acetaminophen 650 mg 04/03/25 05:17 Acetaminophen 325 Mg Tablet PO Q4H PRN PRN Fever, pain 1-08/10 Al Hydroxide/Mg Hydroxide 30 ml 04/03/25 05:17 Mag Hydrox/Al Hydrox/Simeth 30 Ml Udc PO Q6H PRN PRN Gastric Burning Albuterol Sulfate 2.5 mg 04/03/25 05:17 04/03/25 11:06 Albuterol 2.5 Mg/3 Ml Vial.Neb. INHALATION 2.5 mg Q2H PRN PRN Administration Dyspnea, wheezing Albuterol/Ipratropium 3 ml 04/04/25 19:00 04/07/25 13:37 Ipratropium/Albuterol Sulfate 3 Ml Ampul.Neb INHALATION 3 ml Q6HWA.RT DIDI Administration Alteplase, Recombinant 2 mg 04/06/25 11:24 Alteplase 2 Mg/2 Ml Vial IV 04/07/25 23:25 X1 PRN HD catheter dysfunction Amlodipine Besylate 10 mg 04/03/25 12:00 04/07/25 13:22 Amlodipine 10 Mg Tablet PO 10 mg 1200 DIDI Administration Protocol Aspirin 81 mg 04/03/25 08:00 04/07/25 13:14 Aspirin E.C. 81 Mg Tablet PO 81 mg BREAKFAST DIDI Administration Ezetimibe 10 mg 04/03/25 10:00 04/07/25 13:15 Ezetimibe 10 Mg Tablet PO 10 mg DAILY DIDI Administration Glucagon 1 mg 04/03/25 05:17 Glucagon 1 Mg/Ml Syringe IM X1 PRN HYPOGLYCEMIA Protocol Guaifenesin 10 ml 04/03/25 05:17 Guaifenesin 10 Ml Udc (200mg/10ml) PO Q4H PRN PRN COUGH Hemodialysis Solution 6 bag 04/07/25 08:00 04/07/25 11:29 Pureflow B 2k Dialysis Soln 1 Bag PF 04/07/25 19:53 6 bag UD DIDI Administration Protocol Heparin Sodium (Porcine) 2,500 units 04/05/25 16:42 04/05/25 17:32 Heparin 10,000 Units/10 Ml Vial IV 2,500 units UD PRN Administration Dialysis Cath Heparin Flush Heparin Sodium (Porcine) 1,000 - 3,000 units 04/06/25 11:24 04/07/25 11:30 Heparin 10,000 Units/10 Ml Vial IV 04/07/25 23:25 1,300 units X1 PRN Administration HD catheter closing Hydralazine HCl 50 mg 04/03/25 06:00 04/07/25 13:23 Hydralazine 50 Mg Tablet PO Not Given Q8 DIDI Protocol Hydralazine HCl 10 mg 04/03/25 05:17 Hydralazine 20 Mg/Ml Vial IV Q4H PRN PRN SBP > 160 Protocol Azithromycin 500 mg/ Sodium 255 mls @ 255 mls/hr 04/03/25 22:00 04/07/25 00:51 Chloride IV Infused Q24H DIDI Infusion Ceftriaxone Sodium 1 gm in 50 mls @ 100 mls/hr 04/03/25 22:00 04/06/25 23:33 Rocephin IV Infused Q24H DIDI Infusion Dextrose 250 mls @ 0 mls/hr 04/03/25 05:17 Dextrose 10%-Water IV .Q0M PRN HYPOGLYCEMIA Protocol As Directed Sodium Chloride 250 mls @ 15 mls/hr 04/03/25 05:18 04/06/25 14:45 IV Infused .[id number] PRN Infusion Saline Flush Sodium Chloride 250 mls @ 15 mls/hr 04/03/25 05:18 IV .[id number] PRN Additional IVPB Infusion Dextrose 250 mls @ 999 mls/hr 04/03/25 13:17 Dextrose 10%-Water IV .Q16M PRN Hypoglycemic Protocol Protocol Pantoprazole Sodium 40 mg/ 100 mls @ 330 mls/hr 04/07/25 15:15 04/07/25 16:01 Sodium Chloride IV Infused Q24 DIDI Infusion Insulin Glargine 15 unit 04/04/25 08:50 04/07/25 13:20 Insulin Glargine-Yfgn 100 Unit/Ml Pen SC 15 unit DAILY DIDI Administration Insulin Human Lispro 0 unit 04/04/25 16:00 04/07/25 16:23 Insulin Lispro 100 Unit/Ml Insuln.Pen SC 5 units ACHS DIDI Administration Protocol Melatonin 3 mg 04/03/25 05:17 Melatonin 3 Mg Tablet PO QHS PRN PRN INSOMNIA Metoprolol Succinate 25 mg 04/03/25 10:00 04/07/25 13:14 Metoprolol(Xl)Succ 25 Mg Tablet PO 25 mg DAILY DIDI Administration Protocol Nitroglycerin 0.4 mg 04/03/25 05:17 Nitroglycerin (Inpatient Use) 0.4 Mg Tab.Subl SL Q5M PRN CARDIAC/CHEST PAIN Ondansetron HCl 4 mg 04/03/25 05:17 Ondansetron 4 Mg/2 Ml Vial IV Q8H PRN PRN NAUSEA/VOMITING Prednisone 40 mg 04/05/25 08:00 04/07/25 13:15 Prednisone 20 Mg Tablet PO 04/10/25 08:01 40 mg BREAKFAST DIDI Administration Prochlorperazine Edisylate 5 mg 04/03/25 05:17 Prochlorperazine 10 Mg/2 Ml Vial IV Q4H PRN PRN Breakthrough Nausea/Vomiting Senna/Docusate Sodium 2 tablet 04/03/25 05:17 Senna/Docusate Sodium 1 Tablet PO BID PRN PRN Constipation Sodium Chloride 10 - 40 ml 04/03/25 05:18 04/07/25 11:28 0.9% Saline Lock 10 Ml Syringe IV 40 ml UD PRN Administration SALINE FLUSH Sodium Chloride 10 ml 04/05/25 16:42 0.9% Saline Lock 10 Ml Syringe IV UD PRN Dialysis Catheter Flush Sodium Chloride 200 ml 04/06/25 09:45 0.9% Normal Saline 1,000 Ml Iv.Soln. IV 04/07/25 21:45 X1 PRN to maintain SBP >90mmHg during Dialysis Sodium Chloride 1,000 ml 04/06/25 11:25 04/07/25 11:29 0.9% Normal Saline 1,000 Ml Iv.Soln. OPERA.SITE 04/07/25 23:25 1,000 ml X1 DIDI Administration Sodium Chloride 200 ml 04/06/25 11:24 0.9% Normal Saline 1,000 Ml Iv.Soln. IV 04/07/25 23:25 X1 PRN to maintain SBP >90mmHg during Dialysis Sodium Chloride 200 ml 04/07/25 07:48 0.9% Normal Saline 1,000 Ml Iv.Soln. IV 04/07/25 19:52 X1 PRN to maintain SBP >90mmHg during Dialysis Tamsulosin HCl 0.4 mg 04/03/25 17:30 04/07/25 16:23 Tamsulosin Hcl 0.4 Mg Capsule PO 0.4 mg [id number] Administration Lab / Micro Data 04/07/25 06:25 04/07/25 06:25 Labs: Laboratory Results - last 24 hr 04/06/25 22:58: POC Glucose 280 H 04/07/25 06:25: WBC 10.4, RBC 2.50 L, Hgb 7.7 L, Hct 23.1 L, MCV 92.4, MCH 30.8, MCHC 33.3, RDW Std Deviation 46.1 H, RDW Coeff of Humaira 13.7, Plt Count 191, MPV 12.3 H, Immature Gran % (Auto) 0.300, Neut % (Auto) 79.0 H, Lymph % (Auto) 12.6 L, [place] % (Auto) 8.0, Eos % (Auto) 0.1, Baso % (Auto) 0.0, Absolute Neuts (auto) 8.2 H, Absolute Lymphs (auto) 1.30, Nucleated RBC % 0, Sodium 137, Potassium 4.3, Chloride 99, Carbon Dioxide 21.3, Anion Gap 16 H, BUN 80 H, Creatinine 3.61 H, Estim Creat Clear Calc 14.50 L, Est GFR (MDRD) Non-Af 16 L, BUN/Creatinine Ratio 22.1 H, Glucose 423 H, Calcium 8.2 04/07/25 06:46: POC Glucose 392 H 04/07/25 16:21: POC Glucose 333 H Rhythm Strip Rhythm Strip: Sinus Rhythm Rate: 86 Assessment and Plan . Assessment and plan: PULMONARY BRIEF UPDATE NOTE Pt remains hemodynamically stable on 2L NC. Underwent HD as per nephrology yesterday. Cont recommendations as per pulmonary/research professional note yesterday. We will monitor peripherally over the weekend, but please call us any time if questions or if clinical worsening. Nate Forbes MD
[2025-04-07 17:30] LABS: Ferritin 69 ng/mL (37-417); Iron 27 ug/dL (65-175); Iron Binding Capacity,Total 270 ug/dL (250-450); Iron Binding Capacity,Unsat 243 ug/dL (228-428)
[2025-04-07] MEDS: Ceftriaxone 1 GM/50 ML BAG IV (21:19)
[2025-04-07 21:23] LABS: Bedside Glucose 330 mg/dL (74-106)
[2025-04-07 22:20] LABS: Bedside Glucose 402 mg/dL (74-106)
[2025-04-07] MEDS: Azithromycin 500 MG in 0.9% Normal Saline (250mL Bag) 250 ML 255 MG IV (23:02)
[2025-04-08] VITALS (19 sets, daily range): BP systolic 103–143; BP diastolic 52–68; PULSE 73–91; RESP 14–18; TEMP 36.3–37; O2SAT 86–100; BMI 22.6
[2025-04-08 05:01] LABS: Absolute Lymphocyte Count 0.63 X10^3/uL (0.83-4.51); Absolute Neutrophil Count 7.6 X10^3/uL (2.0-7.7); Hematocrit 21.5 % (40-54); Hemoglobin 6.9 g/dL (13.0-16.5); Lymphocyte # 0.63 X10^3/ul (0.83-4.51); Lymphocyte % 7.3 % (19-41); Mean Corp Hgb Conc 32.1 g/dL (32-36); Mean Corpuscular Hgb 29.5 pg (27.0-32.0); Mean Corpuscular Volume 91.9 fL (80-94); Mean Platelet Vol. 12.5 fl (6.2-12.0); Monocyte# 0.36 X10^3/uL; Monocyte% 4.2 % (0-10); NRBC Flagged by Analyzer 0 % (0-5); Neutrophil # 7.58 X10^3/uL (2.7-7.7); Platelet Count 176 K/mm3 (150-450); RBC Distribution Width CV 13.5 % (11.6-14.6); RBC Distribution Width SD 44.2 fl (35.1-43.9); Red Blood Count 2.34 M/mm3 (4.6-6.2); White Blood Count 8.6 K/mm3 (4.4-11.0)
[2025-04-08 05:29] LABS: Anion Gap 16 (5-15); BUN 62 mg/dL (4-19); BUN/Creat Ratio 20.8 RATIO (10-20); Calcium,Total 8.5 mg/dL (7.6-11.0); Carbon Dioxide 20.3 mmol/L (21.0-32.0); Chloride 100 mmol/L (98-108); Creatinine, Serum 2.97 mg/dL (0.70-1.20); EST Glomerular Filtration Rate 20 (>60); Estimated Creatinine Clearance 16.83 ml/min (50-250); Glucose 395 mg/dL (70-99); Potassium 4.3 mmol/L (3.3-5.1); Sodium Level 136 mmol/L (133-145)
[2025-04-08] MEDS: hydrALAZINE 50 MG Tablet PO ×2 (06:21→21:29)
[2025-04-08] MEDS: Insulin Lispro 100 UNIT/ML INSULN.PEN SC ×4 (06:22→21:46)
[2025-04-08 06:55] LABS: Bedside Glucose 361 mg/dL (74-106)
[2025-04-08] MEDS: Ipratropium/Albuterol Sulfate 3 ML AMPUL.NEB INHALATION ×3 (07:44→21:22)
[2025-04-08] MEDS: 0.9% Saline Lock 10 ML Syringe IV ×3 (08:30→21:31)
[2025-04-08] MEDS: Pantoprazole Sodium 40 MG in 0.9% Normal Saline (100mL MB+) 100 ML 330 MG IV (08:30)
[2025-04-08] MEDS: predniSONE 20 MG Tablet 40 MG PO (08:31)
[2025-04-08] MEDS: Aspirin E.C. 81 MG Tablet PO (08:31)
[2025-04-08] MEDS: Ezetimibe 10 MG Tablet PO (08:32)
[2025-04-08] MEDS: Metoprolol(XL)Succ 25 MG Tablet PO (08:34)
--- NOTE | 2025-04-08 10:26 | PN.HOSP_ITS ---
Subjective Subjective Feels better today than he did yesterday, he is trying to frustrated with being here, his creatinine was better down the 2.97. Unfortunately his hemoglobin is 6.9, he is getting a unit of blood today and we are still awaiting stool sample Objective Data Objective Data Vital Signs: Vital Signs Temp Pulse Resp BP Pulse Ox O2 Del Method O2 Flow Rate 97.4 F L 83 15 143/61 H 97 Nasal Cannula 2 04/08/25 08:33 04/08/25 08:34 04/08/25 08:33 04/08/25 08:34 04/08/25 08:33 04/08/25 08:33 04/08/25 08:33 FiO2 30 04/08/25 06:30 Oxygen Flow Rate (L/min) 2 Oxygen Delivery Method Nasal Cannula Weight: 144 lb 9.972 oz Body Mass Index (BMI) 22.6 Intake & Output: Intake and Output for Last 24 Hours 04/07/25 04/08/25 04/09/25 03:59 03:59 03:59 Intake Total 2205 / 2205 895 / 895 100 / 100 Output Total 2150 / 2150 3840 / 3840 200 / 200 Balance 55 / 55 -2945 / -2945 -100 / -100 Lab / Micro Data 04/08/25 03:42 04/08/25 03:42 Labs: Laboratory Results - last 24 hr 04/07/25 06:25: Iron 27 L, TIBC 270, Iron Saturation 10.0, Unsaturated IBC 243, Ferritin 69 04/07/25 06:46: POC Glucose 392 H 04/07/25 13:13: POC Glucose 330 H 04/07/25 16:21: POC Glucose 333 H 04/07/25 21:14: POC Glucose 402 H 04/08/25 03:42: WBC 8.6, RBC 2.34 L, Hgb 6.9 L, Hct 21.5 L, MCV 91.9, MCH 29.5, MCHC 32.1, RDW Std Deviation 44.2 H, RDW Coeff of Humaira 13.5, Plt Count 176, MPV 12.5 H, Immature Gran % (Auto) 0.500, Neut % (Auto) 88.0 H, Lymph % (Auto) 7.3 L , [place] % (Auto) 4.2, Eos % (Auto) 0.0, Baso % (Auto) 0.0, Absolute Neuts (auto) 7.6, Absolute Lymphs (auto) 0.63 L, Nucleated RBC % 0, Sodium 136, Potassium 4.3, Chloride 100, Carbon Dioxide 20.3 L, Anion Gap 16 H, BUN 62 H, Creatinine 2.97 H, Estim Creat Clear Calc 16.83 L, Est GFR (MDRD) Non-Af 20 L, B UN/Creatinine Ratio 20.8 H, Glucose 395 H, Calcium 8.5 04/08/25 06:18: POC Glucose 361 H 04/08/25 07:43: Blood Type A POSITIVE, Antibody Screen NEGATIVE, Crossmatch See Detail Micro: Microbiology 04/03/25 02:25 Blood Culture (Wb) - Anticubital Left Blood Culture - Final No growth in 5 days. 04/03/25 03:50 Blood Culture (Wb) - Anticubital Left Blood Culture - Final No growth in 5 days. 04/03/25 05:51 Urine, Clean Catch Urine Culture - Final Culture exhibits no growth. 04/03/25 05:46 Wound - Elbow Skin and Soft Tissue MRSA/MSSA (PCR - Final 04/03/25 05:10 Mucosa - Nasopharyngeal Respiratory Panel (PCR) - Final 04/03/25 05:51 Urine, Clean Catch Legionella Antigen - Final 04/03/25 05:51 Urine Catheter - Catheter Streptococcus pneumoniae Antigen (M - Final 04/03/25 00:25 Mucosa - Nose SARS-CoV-2, Influenza & RSV (PCR) - Final Rhythm Strip Rhythm Strip: Sinus Rhythm Rate: 86 Physical Exam Narrative General: Alert, Oriented x3, Cooperative, No apparent distress HEENT: Atraumatic, PERRLA, EOMI, Normocephalic Oral: Moist Mucosa Neck: Supple, No JVD, right temporary dialysis catheter Lungs: Diminished, Normal air movement, No rhonchi, No wheeze, No rales Cardiovascular: Regular rate, Regular Rhythm, Normal S1, Normal S2, No murmurs Abdomen: Soft, Non Tender, Non-Distended, No Hepato-splenomegaly Extremities: No edema, Capillary Refill Less than 3 Seconds Skin: Lower extremities are wrapped Musculoskeletal: No Tenderness to Palpation of Joints or Extremities Neurological: No focal neurological deficits, moves all extremities Psych/Mental Status: Normal Affect, Appropriate Assessment & Plan Assessment/Plan (1) Acute hypoxic respiratory failure: PLAN: Plan 1. 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 Maintaining his oxygen saturations today on 2 L nasal cannula ? She has completed azithromycin, will continue with Rocephin for another 2 days, his white count has normalized ? Sputum culture is pending otherwise urine culture blood cultures so far negative ? Echocardiogram with an EF of 40% and stage I diastolic dysfunction with RVSP of 41 mmHg ? Continue with dialysis ? He had a heart cath 2 years ago at [place] with 2 blockages that could not be revascularized, appreciate cardiology's assistance ? Troponin elevation secondary to demand ischemia ? Will continue with daily steroids 2. Anemia ? Unclear etiology at the moment ? Iron studies did not show deficiency and stool studies are still pending ? Continue with PPI ? Will transfuse 1 unit today 3. MADONNA on CKD 3 ? Creatinine peaked at 4.77 and he developed hyperkalemia ? Temporary dialysis catheter was placed and he had dialysis over the last couple of days. Renal function is much improved down to 2.97 4. DM2 ? Sliding scale insulin ? Accu-Cheks ACHS ? Long-acting insulin ? Will monitor and make adjustments as necessary 5. Essential HTN/HLD ? Hold lisinopril secondary to his MADONNA ? Continue with Zetia ? Will monitor and make adjustments as necessary DVT: SCDs Charges/Coding Visit Charges Inpatient E&M: 14407 Subs Hosp L2
[2025-04-08] MEDS: amLODIPine 10 MG Tablet PO (11:35)
[2025-04-08 11:57] LABS: Bedside Glucose 420 mg/dL (74-106)
[2025-04-08] MEDS: Senna/Docusate Sodium 1 Tablet 2 TABLET PO (16:21)
[2025-04-08 17:11] LABS: Bedside Glucose 415 mg/dL (74-106)
[2025-04-08] MEDS: Ceftriaxone 1 GM/50 ML BAG IV (21:30)
[2025-04-08] MEDS: Insulin Glargine-YFGN 100 UNIT/ML Pen 15 UNIT SC (21:45)
[2025-04-08 22:20] LABS: Glucose 528 mg/dL (70-99)
--- NOTE | 2025-04-08 22:57 | PCM.HOSP.N ---
Hospitalist Note BS elevated, given ISS, repeat check remains elevated, will give an additional 15 u now and recheck 1-2 hours.
[2025-04-08] MEDS: Insulin Lispro 100 UNIT/ML INSULN.PEN 15 UNIT SC (23:07)
[2025-04-09] VITALS (18 sets, daily range): BP systolic 129–141; BP diastolic 52–63; PULSE 70–88; RESP 14–22; TEMP 36.6–37.6; O2SAT 94–97; BMI 22.4
[2025-04-09 01:04] LABS: Bedside Glucose 312 mg/dL (74-106)
[2025-04-09 01:04] LABS: Bedside Glucose 443 mg/dL (74-106)
[2025-04-09 01:04] LABS: Bedside Glucose 475 mg/dL (74-106)
[2025-04-09] MEDS: hydrALAZINE 50 MG Tablet PO ×3 (06:23→21:26)
[2025-04-09 06:52] LABS: Bedside Glucose 141 mg/dL (74-106)
[2025-04-09 07:42] LABS: Absolute Lymphocyte Count 1.84 X10^3/uL (0.83-4.51); Absolute Neutrophil Count 10.1 X10^3/uL (2.0-7.7); Basophil# 0.01 X10^3/uL; Basophil% 0.1 % (0-1); Eosinophil# 0.01 X10^3/uL; Eosinophils% 0.1 % (0-5); Hematocrit 25.5 % (40-54); Hemoglobin 8.7 g/dL (13.0-16.5); Lymphocyte # 1.84 X10^3/ul (0.83-4.51); Lymphocyte % 14.1 % (19-41); Mean Corp Hgb Conc 34.1 g/dL (32-36); Mean Corpuscular Hgb 30.2 pg (27.0-32.0); Mean Corpuscular Volume 88.5 fL (80-94); Monocyte# 0.96 X10^3/uL; Monocyte% 7.4 % (0-10); NRBC Flagged by Analyzer 0 % (0-5); Neutrophil # 10.13 X10^3/uL (2.7-7.7); Neutrophil % 77.6 % (47-70); Platelet Count 191 K/mm3 (150-450); RBC Distribution Width SD 45.6 fl (35.1-43.9); Red Blood Count 2.88 M/mm3 (4.6-6.2)
[2025-04-09] MEDS: Ipratropium/Albuterol Sulfate 3 ML AMPUL.NEB INHALATION ×3 (07:47→19:55)
[2025-04-09 08:15] LABS: Anion Gap 15 (5-15); BUN 74 mg/dL (4-19); BUN/Creat Ratio 21.8 RATIO (10-20); Calcium,Total 8.5 mg/dL (7.6-11.0); Carbon Dioxide 21.6 mmol/L (21.0-32.0); Chloride 104 mmol/L (98-108); Creatinine, Serum 3.42 mg/dL (0.70-1.20); EST Glomerular Filtration Rate 17 (>60); Estimated Creatinine Clearance 15.55 ml/min (50-250); Glucose 146 mg/dL (70-99); Potassium 3.4 mmol/L (3.3-5.1); Sodium Level 140 mmol/L (133-145)
[2025-04-09] MEDS: Aspirin E.C. 81 MG Tablet PO (09:15)
[2025-04-09] MEDS: 0.9% Saline Lock 10 ML Syringe IV ×2 (09:15→21:32)
[2025-04-09] MEDS: Metoprolol(XL)Succ 25 MG Tablet PO (09:15)
[2025-04-09] MEDS: Pantoprazole Sodium 40 MG in 0.9% Normal Saline (100mL MB+) 100 ML 330 MG IV (09:15)
[2025-04-09] MEDS: Insulin Glargine-YFGN 100 UNIT/ML Pen 15 UNIT SC ×2 (09:15→21:24)
[2025-04-09] MEDS: Ezetimibe 10 MG Tablet PO (09:15)
[2025-04-09] MEDS: predniSONE 20 MG Tablet 40 MG PO (09:15)
--- NOTE | 2025-04-09 10:37 | PCM.PN.REN ---
Subjective Subjective No new complaints today. Urine output has improved significantly, 1200 cc within the last 24 hours. Henley catheter removed this morning. Objective Data Objective Data Vital Signs: Vital Signs Temp Pulse Resp BP Pulse Ox O2 Del Method O2 Flow Rate 98.4 F 81 19 H 137/63 H 94 Nasal Cannula 2 04/09/25 08:15 04/09/25 09:15 04/09/25 08:15 04/09/25 08:15 04/09/25 08:15 04/09/25 08:15 04/09/25 08:15 FiO2 94 04/09/25 07:48 Oxygen Flow Rate (L/min) 2 Oxygen Delivery Method Nasal Cannula Weight: 64.9 kg Body Mass Index (BMI) 22.4 Intake & Output: Intake and Output for Last 24 Hours 04/07/25 04/08/25 04/09/25 23:59 23:59 23:59 Intake Total 795 / 895 905 / 905 100 / 100 Output Total 3690 / 4140 1260 / 1260 200 / 200 Balance -2895 / -3245 -355 / -355 -100 / -100 Lab / Micro Data 04/09/25 07:05 04/09/25 07:05 Labs: Laboratory Results - last 24 hr 04/08/25 07:43: Blood Type A POSITIVE, Antibody Screen NEGATIVE, Crossmatch See Detail 04/08/25 11:31: POC Glucose 420 H 04/08/25 16:40: POC Glucose 415 H 04/08/25 21:27: POC Glucose 475 H* 04/08/25 21:49: Glucose 528 H* 04/08/25 22:51: POC Glucose 443 H 04/09/25 00:45: POC Glucose 312 H 04/09/25 06:20: POC Glucose 141 H 04/09/25 07:05: WBC 13.0 H, RBC 2.88 L, Hgb 8.7 L, Hct 25.5 L, MCV 88.5, MCH 30.2, MCHC 34.1 D, RDW Std Deviation 45.6 H, RDW Coeff of Humaira 14.0, Plt Count 191, MPV 12.0, Immature Gran % (Auto) 0.700, Neut % (Auto) 77.6 H, Lymph % (Auto) 14.1 L, [place] % (Auto) 7.4, Eos % (Auto) 0.1, Baso % (Auto) 0.1, Absolute Neuts (auto) 10.1 H, Absolute Lymphs (auto) 1.84, Nucleated RBC % 0, Sodium 140, Potassium 3.4, Chloride 104, Carbon Dioxide 21.6, Anion Gap 15, BUN 74 H, Creatinine 3.42 H, Estim Creat Clear Calc 15.55 L, Est GFR (MDRD) Non-Af 17 L, BUN/Creatinine Ratio 21.8 H, Glucose 146 H, Calcium 8.5 Micro: Microbiology 04/07/25 09:30 Sputum, Expectorated/Coughed Respiratory Culture - Final Mixed normal respiratory kyler. No Streptococcus pneumoniae, beta-hemolytic Streptococcus or Staphylococcus aureus isolated. 04/03/25 02:25 Blood Culture (Wb) - Anticubital Left Blood Culture - Final No growth in 5 days. 04/03/25 03:50 Blood Culture (Wb) - Anticubital Left Blood Culture - Final No growth in 5 days. 04/03/25 05:51 Urine, Clean Catch Urine Culture - Final Culture exhibits no growth. 04/03/25 05:46 Wound - Elbow Skin and Soft Tissue MRSA/MSSA (PCR - Final 04/03/25 05:10 Mucosa - Nasopharyngeal Respiratory Panel (PCR) - Final 04/03/25 05:51 Urine, Clean Catch Legionella Antigen - Final 04/03/25 05:51 Urine Catheter - Catheter Streptococcus pneumoniae Antigen (M - Final 04/03/25 00:25 Mucosa - Nose SARS-CoV-2, Influenza & RSV (PCR) - Final Rhythm Strip Rhythm Strip: Sinus Rhythm Rate: 86 Physical Exam Narrative Alert and oriented x 3, no apparent distress S1, S2, RRR Diminished breath sounds. On O2 nasal cannula Abdomen soft, nontender, nondistended No edema No-ntunneled temporary right IJ hemodialysis catheter accessed for dialysis Assessment & Plan Assessment/Plan (1) MADONNA (acute kidney injury): (2) CKD (chronic kidney disease), stage III: QUALIFIERS: Chronic kidney disease stage 3 subtype: stage 3b (GFR 30-44) Qualified Code(s): N18.32 - Chronic kidney disease, stage 3b (3) Acute hypoxic respiratory failure: PLAN: Plan This is an 79-year-old male with past medical history significant for hypertension, CKD stage III (followed by Dr. Solomon in [place]), COPD, diabetes mellitus admitted to the hospital for acute hypoxic respiratory failure, multifactorial from COPD and/or pneumonia and/or possible heart failure contributing. Nephrology consulted in view of elevated creatinine. Baseline creatinine is around 1.8 mg/dL range. Creatinine was 1.8 on admission received contrast on admit Renal US no hydronephrosis UA showed leukocyte esterase, RBC, 100 protein - presumably MADONNA due to contrast nephropathy vs ATN. due to lack of urine output and worsening renal failure he was started on hemodialysis on Wednesday. Received dialysis Wednesday and Wednesday. Symptomatically better with volume removal. He is now off BiPAP. Urine output has improved significantly, 1200 cc in the last 24 hours. Creatinine went up by 0.4. Hold off on renal replacement therapy since he may be recovering. Electrolytes are acceptable. Will reassess tomorrow with labs. If creatinine is better, can remove temporary dialysis catheter End of my interview, he was asking to leave. Explained that his renal failure is not completely resolved yet, might need monitoring for another day or 2. He is adamant about leaving today. Will notify hospitalist.
[2025-04-09 11:31] LABS: Bedside Glucose 146 mg/dL (74-106)
[2025-04-09] MEDS: amLODIPine 10 MG Tablet PO (13:40)
--- NOTE | 2025-04-09 13:51 | NURSING ---
Pt's osborne catheter was removed at 0500 on 04/09. Pt has not voided at 1345. This RN bladder scanned for 200ml. No urge to void according to pt. Pt previously had poor UO while osborne was in d/t dialysis. Dr Arnold aware, no new orders, will monitor
--- NOTE | 2025-04-09 15:01 | PN_ITS ---
Subjective Subjective Patient seen and examined in the presence of his nurse. He had no complaints and had an uneventful night. Review of systems is otherwise negative. He is requesting to go home if he is not having dialysis. However, the alpine guide wants to monitor his labs overnight. He has remained hemodynamically stable. Objective Data Objective Data Vital Signs: Vital Signs Temp Pulse Resp BP Pulse Ox O2 Del Method O2 Flow Rate 98.4 F 70 16 137/63 H 94 Nasal Cannula 2 04/09/25 08:15 04/09/25 13:41 04/09/25 13:19 04/09/25 08:15 04/09/25 08:15 04/09/25 14:06 04/09/25 14:06 FiO2 94 04/09/25 07:48 Oxygen Flow Rate (L/min) 2 Oxygen Delivery Method Nasal Cannula Weight: 143 lb 1.28 oz Body Mass Index (BMI) 22.4 Intake & Output: Intake and Output for Last 24 Hours 04/07/25 04/08/25 04/09/25 23:59 23:59 23:59 Intake Total 795 / 895 905 / 905 100 / 100 Output Total 3690 / 4140 1260 / 1260 200 / 200 Balance -2895 / -3245 -355 / -355 -100 / -100 Lab / Micro Data 04/09/25 07:05 04/09/25 07:05 Labs: Laboratory Results - last 24 hr 04/08/25 07:43: Crossmatch See Detail 04/08/25 16:40: POC Glucose 415 H 04/08/25 21:27: POC Glucose 475 H* 04/08/25 21:49: Glucose 528 H* 04/08/25 22:51: POC Glucose 443 H 04/09/25 00:45: POC Glucose 312 H 04/09/25 06:20: POC Glucose 141 H 04/09/25 07:05: WBC 13.0 H, RBC 2.88 L, Hgb 8.7 L, Hct 25.5 L, MCV 88.5, MCH 30.2, MCHC 34.1 D, RDW Std Deviation 45.6 H, RDW Coeff of Humaira 14.0, Plt Count 191, MPV 12.0, Immature Gran % (Auto) 0.700, Neut % (Auto) 77.6 H, Lymph % (Auto) 14.1 L, [place] % (Auto) 7.4, Eos % (Auto) 0.1, Baso % (Auto) 0.1, Absolute Neuts (auto) 10.1 H, Absolute Lymphs (auto) 1.84, Nucleated RBC % 0, Sodium 140, Potassium 3.4, Chloride 104, Carbon Dioxide 21.6, Anion Gap 15, BUN 74 H, C reatinine 3.42 H, Estim Creat Clear Calc 15.55 L, Est GFR (MDRD) Non-Af 17 L, B UN/Creatinine Ratio 21.8 H, Glucose 146 H, Calcium 8.5 04/09/25 11:12: POC Glucose 146 H Micro: Microbiology 04/07/25 09:30 Sputum, Expectorated/Coughed Gram Stain - Final 04/07/25 09:30 Sputum, Expectorated/Coughed Respiratory Culture - Final Mixed normal respiratory kyler. No Streptococcus pneumoniae, beta-hemolytic Streptococcus or Staphylococcus aureus isolated. 04/03/25 02:25 Blood Culture (Wb) - Anticubital Left Blood Culture - Final No growth in 5 days. 04/03/25 03:50 Blood Culture (Wb) - Anticubital Left Blood Culture - Final No growth in 5 days. 04/03/25 05:51 Urine, Clean Catch Urine Culture - Final Culture exhibits no growth. 04/03/25 05:46 Wound - Elbow Skin and Soft Tissue MRSA/MSSA (PCR - Final 04/03/25 05:10 Mucosa - Nasopharyngeal Respiratory Panel (PCR) - Final 04/03/25 05:51 Urine, Clean Catch Legionella Antigen - Final 04/03/25 05:51 Urine Catheter - Catheter Streptococcus pneumoniae Antigen (M - Final 04/03/25 00:25 Mucosa - Nose SARS-CoV-2, Influenza & RSV (PCR) - Final Rhythm Strip Rhythm Strip: Sinus Rhythm Rate: 86 Physical Exam Const alert, oriented x3 and no apparent distress General Appearance: cooperative HEENT normocephalic, head/scalp atraumatic, moist oral mucous membranes, oropharynx normal and gingiva normal Eyes PERRL and EOMs intact bilaterally Neck supple and no JVD General: trachea midline Lymph Lymphatic: no lymphedema noted Resp Resp Narrative: mildly diminished breath sounds bibasally, no wheezes or crackles. On 2 L of oxygen by nasal cannula. Cardio regular rate, regular rhythm, S1 normal heart sound, S2 normal heart sound and no murmurs GI normal to inspection, nondistended, normoactive bowel sounds, soft to palpation, non-tender and non-distended Extremity normal capillary refill, no clubbing, cyanosis or edema and no calf tenderness General Extremity: no tenderness to palpation of joints or extremities Skin General Skin Exam: no breakdown Neuro no focal motor deficits Neuro Narrative: alert, communicative, moves all limbs spontaneously Motor Exam: general weakness Psych thought process normal, cooperative and affect normal Appearance: appropriate Assessment & Plan Assessment/Plan (1) Non-STEMI (non-ST elevated myocardial infarction): (2) MADONNA (acute kidney injury): PLAN: Plan #Acute on chronic hypoxic respiratory failure due to acute on chronic COPD exacerbation and probable heart failure as well as superimposed pneumonia * Now on 2 L of oxygen. 2D echo showed EF of 40% with left ventricular hypokinesis and stage I diastolic dysfunction RVSP of 41 mmHg. * Cardiology was consulted and records requested from [place] showed he had cardiac cath at [place] 2 years ago and had 2 blockages which were not amenable to treatment. * His troponins were slightly elevated. Conservative management as per cardiology. #MADONNA on CKD stage III now dialysis dependent * Patient has been initiated on dialysis via a tunneled dialysis catheter during this admission. Lasix and lisinopril as well as potassium held. Nephrology on board. * Patient said if he did not have dialysis today he wanted to be discharged home. Nephrology is wanting to monitor his kidney function overnight and will decide in the morning about discharging based on what the kidney function is. * Creatinine today is 3.42, up from 2.97 yesterday. #Acute on chronic anemia: * Hemoglobin went down to 6.9 during the admission so he was transfused a unit of packed red blood cells. * Hemoglobin today is 8.7. * Stool for occult blood ordered and is pending. * Iron profile showed iron saturation of 10% with iron level low at 27 and ferritin also low normal at 69. He therefore does have some level of iron deficiency anemia. Will benefit from follow-up with gastroenterology on outpatient basis * #Leukocytosis: Resolved #Type 2 diabetes mellitus: * On Lantus. Insulin sliding scale. Accu-Cheks ACHS. * Has had hypoglycemia during this admission. Will monitor closely. #Hyperlipidemia: On ezetimibe Nicotine dependence: Counseled to quit. Nicotine patch 21mg daily DVT prophylaxis: heparin Charges/Coding Visit Charges Inpatient E&M: 75869 Subs Hosp L2
[2025-04-09 16:44] LABS: Bedside Glucose 217 mg/dL (74-106)
[2025-04-09 17:08] LABS: Cytoplasmic Ab (C-ANCA) <1:20 titer (Neg:<1:20); Perinuclear Ab (P-ANCA) <1:20 titer (Neg:<1:20)
[2025-04-09] MEDS: Insulin Lispro 100 UNIT/ML INSULN.PEN SC ×2 (17:40→21:24)
[2025-04-09] MEDS: Ceftriaxone 1 GM/50 ML BAG IV (21:32)
[2025-04-09 22:06] LABS: Anti-Glomerular Basement Memb < 0.2 units (0.0-0.9)
[2025-04-09 22:44] LABS: Bedside Glucose 423 mg/dL (74-106)
[2025-04-10] VITALS (14 sets, daily range): BP systolic 144–149; BP diastolic 63–78; PULSE 69–86; RESP 14–24; TEMP 36.3–36.7; O2SAT 90–100; BMI 22.3
[2025-04-10 06:18] LABS: Absolute Lymphocyte Count 1.09 X10^3/uL (0.83-4.51); Absolute Neutrophil Count 9.6 X10^3/uL (2.0-7.7); Basophil# 0.01 X10^3/uL; Basophil% 0.1 % (0-1); Eosinophil# 0.01 X10^3/uL; Eosinophils% 0.1 % (0-5); Hemoglobin 8.6 g/dL (13.0-16.5); Lymphocyte # 1.09 X10^3/ul (0.83-4.51); Lymphocyte % 9.4 % (19-41); Mean Corp Hgb Conc 33.1 g/dL (32-36); Mean Corpuscular Hgb 30.2 pg (27.0-32.0); Mean Corpuscular Volume 91.2 fL (80-94); Mean Platelet Vol. 12.4 fl (6.2-12.0); Monocyte# 0.81 X10^3/uL; NRBC Flagged by Analyzer 0 % (0-5); Neutrophil # 9.63 X10^3/uL (2.7-7.7); Neutrophil % 82.6 % (47-70); Platelet Count 193 K/mm3 (150-450); RBC Distribution Width CV 13.6 % (11.6-14.6); RBC Distribution Width SD 45.1 fl (35.1-43.9); Red Blood Count 2.85 M/mm3 (4.6-6.2); White Blood Count 11.6 K/mm3 (4.4-11.0)
[2025-04-10] MEDS: hydrALAZINE 50 MG Tablet PO ×2 (06:34→15:10)
[2025-04-10] MEDS: Insulin Lispro 100 UNIT/ML INSULN.PEN SC ×2 (06:36→15:09)
[2025-04-10 06:58] LABS: Bedside Glucose 274 mg/dL (74-106)
[2025-04-10] MEDS: Ipratropium/Albuterol Sulfate 3 ML AMPUL.NEB INHALATION ×2 (07:09→13:38)
[2025-04-10 09:54] LABS: Anion Gap 13 (5-15); BUN 79 mg/dL (4-19); BUN/Creat Ratio 22.8 RATIO (10-20); Calcium,Total 8.5 mg/dL (7.6-11.0); Carbon Dioxide 22.6 mmol/L (21.0-32.0); Chloride 101 mmol/L (98-108); Creatinine, Serum 3.48 mg/dL (0.70-1.20); EST Glomerular Filtration Rate 17 (>60); Estimated Creatinine Clearance 15.24 ml/min (50-250); Glucose 287 mg/dL (70-99); Potassium 4.2 mmol/L (3.3-5.1); Sodium Level 137 mmol/L (133-145)
[2025-04-10] MEDS: Metoprolol(XL)Succ 25 MG Tablet PO (09:57)
[2025-04-10] MEDS: Ezetimibe 10 MG Tablet PO (09:57)
[2025-04-10] MEDS: Aspirin E.C. 81 MG Tablet PO (09:58)
[2025-04-10] MEDS: predniSONE 20 MG Tablet 40 MG PO (09:58)
[2025-04-10] MEDS: Insulin Glargine-YFGN 100 UNIT/ML Pen 15 UNIT SC (10:00)
[2025-04-10] MEDS: Pantoprazole Sodium 40 MG in 0.9% Normal Saline (100mL MB+) 100 ML 330 MG IV (10:09)
--- NOTE | 2025-04-10 11:03 | NURSING ---
Received VO from Dr. Thompson that pt no longer needed HD & temp dialysis cath could be removed. Dialysis Coordinator removed RIJ temp cath using sterile technique. Pressure held with sterile gauze until hemostasis confirmed. Site dressed with sterile gauze & OpSite. No bleeding observed from site during or post removal. Dialysis cath was intact upon removal. pt & spouse educated on Opsite care.
--- NOTE | 2025-04-10 12:26 | PN.RENAL_ITS ---
Subjective Subjective no new events Objective Data Objective Data Vital Signs: Vital Signs Temp Pulse Resp BP Pulse Ox O2 Del Method O2 Flow Rate 97.9 F 84 16 147/63 H 98 Room Air 2 04/10/25 08:45 04/10/25 09:57 04/10/25 08:45 04/10/25 08:45 04/10/25 09:38 04/10/25 08:45 04/10/25 09:38 FiO2 30 04/10/25 00:32 Oxygen Flow Rate (L/min) 2 Oxygen Delivery Method Room Air Weight: 64.7 kg Body Mass Index (BMI) 22.3 Intake & Output: Intake and Output for Last 24 Hours 04/08/25 04/09/25 04/10/25 23:59 23:59 23:59 Intake Total 905 / 905 150 / 150 100 / 100 Output Total 1260 / 1260 200 / 203 53 / 53 Balance -355 / -355 -50 / -53 47 / 47 Lab / Micro Data 04/10/25 05:35 04/10/25 05:35 Labs: Laboratory Results - last 24 hr 04/06/25 06:24: Glomerular Base Memb Ab < 0.2 04/06/25 14:48: c-ANCA Antibody <1:20, Atypical p-ANCA <1:20, p-ANCA Antibody <1:20 04/09/25 16:26: POC Glucose 217 H 04/09/25 21:12: POC Glucose 423 H 04/10/25 05:35: WBC 11.6 H, RBC 2.85 L, Hgb 8.6 L, Hct 26.0 L, MCV 91.2, MCH 30.2, MCHC 33.1, RDW Std Deviation 45.1 H, RDW Coeff of Humaira 13.6, Plt Count 193, MPV 12.4 H, Immature Gran % (Auto) 0.800, Neut % (Auto) 82.6 H, Lymph % (Auto) 9.4 L, Duchesne % (Auto) 7.0, Eos % (Auto) 0.1, Baso % (Auto) 0.1, Absolute Neuts (auto) 9.6 H, Absolute Lymphs (auto) 1.09, Nucleated RBC % 0, Sodium 137, Potassium 4.2, Chloride 101, Carbon Dioxide 22.6, Anion Gap 13, BUN 79 H, C reatinine 3.48 H, Estim Creat Clear Calc 15.24 L, Est GFR (MDRD) Non-Af 17 L, B UN/Creatinine Ratio 22.8 H, Glucose 287 H, Calcium 8.5 04/10/25 06:34: POC Glucose 274 H Micro: Microbiology 04/09/25 17:45 Stool Stool Occult Blood (MINE) - Final Occult Blood Positive 04/07/25 09:30 Sputum, Expectorated/Coughed Gram Stain - Final 04/07/25 09:30 Sputum, Expectorated/Coughed Respiratory Culture - Final Mixed normal respiratory kyler. No Streptococcus pneumoniae, beta-hemolytic Streptococcus or Staphylococcus aureus isolated. 04/03/25 02:25 Blood Culture (Wb) - Anticubital Left Blood Culture - Final No growth in 5 days. 04/03/25 03:50 Blood Culture (Wb) - Anticubital Left Blood Culture - Final No growth in 5 days. 04/03/25 05:51 Urine, Clean Catch Urine Culture - Final Culture exhibits no growth. 04/03/25 05:46 Wound - Elbow Skin and Soft Tissue MRSA/MSSA (PCR - Final 04/03/25 05:10 Mucosa - Nasopharyngeal Respiratory Panel (PCR) - Final 04/03/25 05:51 Urine, Clean Catch Legionella Antigen - Final 04/03/25 05:51 Urine Catheter - Catheter Streptococcus pneumoniae Antigen (M - Final 04/03/25 00:25 Mucosa - Nose SARS-CoV-2, Influenza & RSV (PCR) - Final Rhythm Strip Rhythm Strip: Sinus Rhythm Rate: 86 Physical Exam Narrative Alert and oriented x 3, no apparent distress S1, S2, RRR Diminished breath sounds. On O2 nasal cannula Abdomen soft, nontender, nondistended No edema No-ntunneled temporary right IJ hemodialysis catheter accessed for dialysis Assessment & Plan Assessment/Plan (1) MADONNA (acute kidney injury): (2) CKD (chronic kidney disease), stage III: QUALIFIERS: Chronic kidney disease stage 3 subtype: stage 3b (GFR 30-44) Qualified Code(s): N18.32 - Chronic kidney disease, stage 3b (3) Acute hypoxic respiratory failure: PLAN: Plan This is an 79-year-old male with past medical history significant for hypertension, CKD stage III (followed by Dr. Solomon in [place]), COPD, diabetes mellitus admitted to the hospital for acute hypoxic respiratory failure, multifactorial from COPD and/or pneumonia and/or possible heart failure contributing. Nephrology consulted in view of elevated creatinine. Baseline creatinine is around 1.8 mg/dL range. Creatinine was 1.8 on admission received contrast on admit Renal US no hydronephrosis UA showed leukocyte esterase, RBC, 100 protein - presumably MADONNA due to contrast nephropathy vs ATN. due to lack of urine output and worsening renal failure he was started on hemodialysis on Wednesday. Received dialysis Wednesday and Wednesday. Symptomatically better with volume removal. He is now off BiPAP. Urine output has improved significantly cr about the same likely recovering ATN remove HD catheter once again he is asking to leave from my end can dc bladder scan x [address] Solomon in 1-2 weeks dw family dw hospitalist
--- NOTE | 2025-04-10 12:38 | CASEMGMT ---
FIDEL CM into pt room to discusse DC plan. Discussed OP therapy with pt, he feels he is at baseline and does not want to do therapy at this time. Pt denies any DC needs at this time.
[2025-04-10] MEDS: amLODIPine 10 MG Tablet PO (15:08)
--- NOTE | 2025-04-10 15:27 | DS.PCM_ITS ---
Providers Date of Admission: 04/03/25 Date of Discharge: 04/10/25 Primary Care Physician: Ryley Montenegro MD Consultations 04/03/25 05:17 Consult: Slagger / Pulmonary Medicine Routine Consulting Provider: Intensivists/Pulmonary Med Reason for Consult: Resp failure, COPD Exac, ? HF exac, ? PNA EMERGENT Consult: No Notified: Yes Date Notified: 04/03/25 Time Notified: 06:24 Method of Notification: Text 04/03/25 14:07 Consult: Cardiology Routine Consulting Provider: Breezy Campbell Reason for Consult: abnormal echo EMERGENT Consult: No Notified: Yes Date Notified: 04/03/25 Time Notified: 14:08 Method of Notification: Text 04/04/25 11:33 Consult: Nephrology Routine Consulting Provider: Denisha Thompson Reason for Consult: MADONNA on CKD III EMERGENT Consult: No Notified: Yes Date Notified: 04/04/25 Time Notified: 11:34 Method of Notification: Text 04/05/25 15:20 Consult: General Surgery Routine Consulting Provider: Smooth Luis Reason for Consult: HD catheter placement EMERGENT Consult: No Notified: Yes Date Notified: 04/05/25 Time Notified: 15:28 Method of Notification: Text Comments:: MADONNA. needs temporary dialysis. my cell is [phone] Reason For Visit: RESP FAILURE, COPD EXAC, ? PNA, ?HF EXAC Diagnosis Discharge Diagnosis (1) MADONNA (acute kidney injury): Status: Acute Code(s): N17.9 - Acute kidney failure, unspecified (2) CKD (chronic kidney disease), stage III: Status: Chronic Code(s): N18.30 - Chronic kidney disease, stage 3 unspecified Qualifiers: Chronic kidney disease stage 3 subtype: stage 3b (GFR 30-44) Qualified Code(s): N18.32 - Chronic kidney disease, stage 3b (3) Acute hypoxic respiratory failure: Status: Acute Code(s): J96.01 - Acute respiratory failure with hypoxia Plan #Acute on chronic hypoxic respiratory failure due to acute on chronic COPD exacerbation and probable heart failure as well as superimposed pneumonia * Now on 2 L of oxygen. 2D echo showed EF of 40% with left ventricular hypokinesis and stage I diastolic dysfunction RVSP of 41 mmHg. * Cardiology was consulted and records requested from [place] showed he had cardiac cath at [place] 2 years ago and had 2 blockages which were not amenable to treatment. * His troponins were slightly elevated. Conservative management as per cardiology. #MADONNA on CKD stage III now dialysis dependent * Patient has been initiated on dialysis via a tunneled dialysis catheter during this admission. Lasix and lisinopril as well as potassium held. Nephrology on board. * Patient said if he did not have dialysis today he wanted to be discharged home. Nephrology is wanting to monitor his kidney function overnight and will decide in the morning about discharging based on what the kidney function is. * Creatinine today is 3.42, up from 2.97 yesterday. #Acute on chronic anemia: * Hemoglobin went down to 6.9 during the admission so he was transfused a unit of packed red blood cells. * Hemoglobin today is 8.7. * Stool for occult blood ordered and is pending. * Iron profile showed iron saturation of 10% with iron level low at 27 and ferritin also low normal at 69. He therefore does have some level of iron deficiency anemia. Will benefit from follow-up with gastroenterology on outpatient basis * #Leukocytosis: Resolved #Type 2 diabetes mellitus: * On Lantus. Insulin sliding scale. Accu-Cheks ACHS. * Has had hypoglycemia during this admission. Will monitor closely. #Hyperlipidemia: On ezetimibe Nicotine dependence: Counseled to quit. Nicotine patch 21mg daily DVT prophylaxis: heparin Medications at Discharge Home Medications amlodipine 10 mg tablet (Norvasc) 10 mg PO 1200 08/05/21 insulin glargine 100 unit/mL (3 mL) subcutaneous pen (Lantus Solostar U-100 Insulin) 15 unit subcut QPM 08/05/21 insulin lispro 100 unit/mL subcutaneous pen 0 unit subcut TID SLIDING SCALE 08/05/21 tamsulosin 0.4 mg capsule (Flomax) 0.4 mg PO .COMPLEX urination 08/05/21 ezetimibe 10 mg tablet 10 mg PO DAILY 04/06/24 metoprolol succinate 25 mg tablet,extended release 24 hr 25 mg PO DAILY 04/06/24 blood sugar diagnostic (Contour Next Test Strips) 09/12/24 hydralazine 50 mg tablet 50 mg PO Q8H 04/03/25 pantoprazole 40 mg tablet,delayed release 40 mg PO DAILY #30 tabs 04/10/25 Hospital Course Operations None Procedures Dialysis Summary of Care Provided Minutes Spent on Discharge: 48 Hospital Course: Patient is an 79-year-old male with an extensive past medical history as outlined was admitted to the ED on 04/03/2025 with a complaint of shortness of breath was started on the day of admission. He had assisted orthopnea and some weight gain. However he denied any chest pain. He decided to come into the ED for evaluation. In the ED proBNP was elevated at 6552. Initial troponin was 58 with repeat going to 76. Chest x-ray showed multifocal airspace disease of the lungs more prominent in the perihilar zones concerning for multifocal congestion and/or pneumonia. CT of the chest showed bilateral pleural effusions and airspace consolidations of the lower lobes and bilateral chronic perihilar interstitial pulmonary thickening with associated mild multifocal groundglass densities and possibly superimposed pneumonia with mild diffuse spondylosis with no evidence of PE or aortic dissection. EKG showed no acute ST changes. He was initially admitted and managed for acute hypoxic respiratory failure due to acute on chronic COPD exacerbation and probable heart failure as well as superimposed pneumonia. 2D echo showed EF of 40% with left ventricular hypokinesis and stage I diastolic dysfunction and RVSP of 41 mmHg. Cardiology was consulted and he was placed on antibiotics. He did have cardiac cath done sometime ago at [facility] so cardiology requested records from [facility]. Hospital course was complicated by creatinine trending upwards. Nephrology was therefore consulted and Lasix held. Creatinine did not improve and so patient eventually had to be started on dialysis. Patient intermittently required BiPAP. His kidney function continued to worsen and renal ultrasound showed mild renal cortical thickening bilaterally with no hydronephrosis and nonobstructing stone in the left kidney with prostatomegaly. Eventually had to be commenced on dialysis as his kidney function was not improving. His shortness of breath improved and he was weaned down to 2 L of oxygen. The records from also showed he had cardiac cath at [place] 2 years ago which showed 2 blockages which were not amenable to treatment. Cardiology therefore recommended conservative management. Creatinine on day of discharge was down to 3.48. Nephrology therefore decided not to continue with dialysis and dialysis catheter was removed. Of note Hospital course was complicated by acute on chronic anemia with patient requiring transfusion of 1 unit of packed red blood cells. Stool for occult blood was also positive. Therefore on discharge she was placed on pantoprazole and his aspirin was stopped. He is follow-up with his primary care doctor and was referred to cardiology and also to follow-up with GI within 1 to 2 weeks. Of note, patient's aspirin was discontinued on discharge because his 2 focal blood was positive. He will therefore need to follow-up with GI for scope or otherwise he needs to resume his aspirin when okay with gastroenterology and his PCP as well as cardiology. Patient seen and examined prior to discharge. His and daughter were by his bedside. He had no active complaints and had an uneventful night. Review of systems otherwise negative. Labs and vitals reviewed. Medication reviewed and reconciled. Physical Exam Const alert, oriented x3 and no apparent distress General Appearance: cooperative Orientation / Consciousness: awake HEENT normocephalic, head/scalp atraumatic, hearing grossly normal bilaterally and moist oral mucous membranes Mouth: oral and palatal mucosa normal Eyes PERRL and EOMs intact bilaterally Neck supple General: trachea midline Lymph Lymphatic: no lymphadenopathy noted and no lymphedema noted Resp Resp Narrative: mildly diminished breath sounds bibasally, no wheezes or crackles. On 2 L of oxygen by nasal cannula. Effort and Inspection: tachypneic Cardio regular rate, regular rhythm, S1 normal heart sound, S2 normal heart sound and no murmurs GI normal to inspection, nondistended, normoactive bowel sounds, soft to palpation, non-tender and non-distended Extremity normal capillary refill, no clubbing, cyanosis or edema and no calf tenderness General Extremity: no tenderness to palpation of joints or extremities Skin no rashes or lesions noted General Skin Exam: no breakdown Neuro CN's II-XII intact bilaterally Neuro Narrative: alert, communicative, moves all limbs spontaneously Sensorium / Orientation: awake and alert Motor Exam: general weakness Psych thought process normal, cooperative and affect normal Appearance: appropriate Weight / BMI Weight Weight: 142 lb 10.225 oz Body Mass Index (BMI) 22.3 ABG / Lab / Microbiology Data 04/10/25 05:35 04/10/25 05:35 Laboratory: Laboratory Results - last 24 hr 04/06/25 06:24: Glomerular Base Memb Ab < 0.2 04/09/25 21:12: POC Glucose 423 H 04/10/25 05:35: WBC 11.6 H, RBC 2.85 L, Hgb 8.6 L, Hct 26.0 L, MCV 91.2, MCH 30.2, MCHC 33.1, RDW Std Deviation 45.1 H, RDW Coeff of Humaira 13.6, Plt Count 193, MPV 12.4 H, Immature Gran % (Auto) 0.800, Neut % (Auto) 82.6 H, Lymph % (Auto) 9.4 L, [place] % (Auto) 7.0, Eos % (Auto) 0.1, Baso % (Auto) 0.1, Absolute Neuts (auto) 9.6 H, Absolute Lymphs (auto) 1.09, Nucleated RBC % 0, Sodium 137, Potassium 4.2, Chloride 101, Carbon Dioxide 22.6, Anion Gap 13, BUN 79 H, C reatinine 3.48 H, Estim Creat Clear Calc 15.24 L, Est GFR (MDRD) Non-Af 17 L, B UN/Creatinine Ratio 22.8 H, Glucose 287 H, Calcium 8.5 04/10/25 06:34: POC Glucose 274 H 04/10/25 15:05: POC Glucose 223 H Microbiology: Microbiology 04/09/25 17:45 Stool Stool Occult Blood (MINE) - Final Occult Blood Positive 04/07/25 09:30 Sputum, Expectorated/Coughed Gram Stain - Final 04/07/25 09:30 Sputum, Expectorated/Coughed Respiratory Culture - Final Mixed normal respiratory kyler. No Streptococcus pneumoniae, beta-hemolytic Streptococcus or Staphylococcus aureus isolated. 04/03/25 02:25 Blood Culture (Wb) - Anticubital Left Blood Culture - Final No growth in 5 days. 04/03/25 03:50 Blood Culture (Wb) - Anticubital Left Blood Culture - Final No growth in 5 days. 04/03/25 05:51 Urine, Clean Catch Urine Culture - Final Culture exhibits no growth. 04/03/25 05:46 Wound - Elbow Skin and Soft Tissue MRSA/MSSA (PCR - Final 04/03/25 05:10 Mucosa - Nasopharyngeal Respiratory Panel (PCR) - Final 04/03/25 05:51 Urine, Clean Catch Legionella Antigen - Final 04/03/25 05:51 Urine Catheter - Catheter Streptococcus pneumoniae Antigen (M - Final 04/03/25 00:25 Mucosa - Nose SARS-CoV-2, Influenza & RSV (PCR) - Final D/C Instructions Discharge Diet: Low fat / Low cholesterol Discharge Activity: Return to Normal Activity Weight Bearing Status: Weight bearing as tolerated Call your doctor if you observe: Fever of 101 or Higher, Shortness of breath, Dizziness, Swelling in the ankles, Chest pain and Increased palpitations (irregular heartbeat) DC O2, CPAP, BIPAP Needs Home O2 Discharge instructions: Yes Type of respiratory needs?: Oxygen Oxygen frequency: Continuous Continuous oxygen liters per minute: 2 DC home with Oxygen: Yes Home O2 MD Review: I have reviewed the oxygen testing, and the patient qualifies for home oxygen equipment and portability. The patient is mobile in the home and the community. Meaningful Use Info Meaningful Use Meaningful Use Diagnoses (Choose all that apply): None applicable Ischemic Stroke Statin Dosing Therapy Reference: STATIN DOSE THERAPY REFERENCE: * Patients > 75 years receive moderate or high dose statin therapy. * Patients 75 years or YOUNGER should receive HIGH intensity statin dose unless contraindicated. You will be required to document reason for non-treatment if statin daily dose does not meet guidelines. HIGH DOSE STATIN THERAPY DAILY Atorvastatin > than or = to 40 mg Rosuvastatin > than or = to 20 mg Amlodipine + Atorvastatin > than or = to 2.5/40 mg Ezetimibe + Simvastatin 10/80 mg Simvastatin 80mg Discharge Plan Admission Admit Date/Time: 04/03/25 04:16 Primary Reason for Your Visit: MADONNA, pneumonia, acute on chronic respiratory failure Attending Provider: Grace Arnold Primary Care Provider: Ryley Montenegro Consulting Providers: Dyana Hwang; Breezy Campbell; Denisha Thompson; Smooth Luis; Grace Arnold; Jose Moore Instructions Patient Instructions: Hemodialysis, ED Hemodialysis Discharge Orders/Prescriptions Prescriptions: New pantoprazole 40 mg tablet,delayed release (DR/EC) 40 mg PO DAILY Qty: 30 2RF Continued metoprolol succinate 25 mg tablet extended release 24 hr 25 mg PO DAILY ezetimibe 10 mg tablet 10 mg PO DAILY tamsulosin [Flomax] 0.4 mg Capsule 0.4 mg PO .COMPLEX Rx Instructions: 0.4 mg orally 3x/week; Takes on //WED; amlodipine [Norvasc] 10 mg Tablet 10 mg PO 1200 insulin lispro 100 unit/mL Insulin Pen 0 unit SUBCUT TID insulin glargine [Lantus Solostar U-100 Insulin] 100 unit/mL (3 mL) Insulin Pen 15 unit SUBCUT QPM hydralazine 50 mg tablet 50 mg PO Q8H (DME) Contour Next Test Strips Strip MISCELLANEOUS 4X/DAY Discontinued lisinopril 5 mg tablet 5 mg PO DAILY aspirin 81 mg Tablet,Delayed Release (Dr/Ec) 81 mg PO DAILY furosemide [Lasix] 40 mg tablet 40 mg PO DAILY potassium chloride 20 mEq Tablet,Er Particles/Crystals 20 meq PO BIDCM 30 Days Qty: 60 0RF Referrals / Follow Up: Ryley Montenegro MD [Primary Care Provider] - 04/20/25 11:30 am Denisha Thompson MD [Med Staff - Consulting] - Within 1 Week Alvaro Gutierrez MD [Med Staff - Active Staff] - 04/16/25 1:00 pm (see to establish care for urine retention) Robinson Steve DO [Med Staff - Active Staff] - Within 2 Weeks (see to establish care for anemia in light of the positive stool for occult blood left voicemail with office to call you if you don't hear back within 2-3 business days call office) Disposition Disposition (needs filled in before D/C Order can be placed): Home, Self Care Charges/Coding Visit Charges Inpatient E&M: 18948 Disch Hosp >30min
--- NOTE | 2025-04-10 15:27 | DCINST_ITS ---
Discharge Instructions Diet Discharge Diet: Low fat / Low cholesterol DC O2, CPAP, BIPAP needs Home O2 Discharge instructions: Yes Type of respiratory needs?: Oxygen Oxygen frequency: Continuous Continuous oxygen liters per minute: 2 Dressing / Incision Discharge Activity: Return to Normal Activity Dressing / Incision Call your doctor if you observe: Fever of 101 or Higher, Shortness of breath, Dizziness, Swelling in the ankles, Chest pain and Increased palpitations (irregular heartbeat) Follow Up Care Test Results: Test results from this visit will be discussed in further detail at your follow- up appointment, if applicable. Discharge Plan Admission Admit Date/Time: 04/03/25 04:16 Primary Reason for Your Visit: MADONNA, pneumonia, acute on chronic respiratory failure Attending Provider: Grace Arnold Primary Care Provider: Ryley Montenegro Consulting Providers: Dyana Hwang; Breezy Campbell; Denisha Thompson; Smooth Luis; Grace Arnold; Jose Moore Instructions Patient Instructions: Hemodialysis, ED Hemodialysis Discharge Orders/Prescriptions Prescriptions: New pantoprazole 40 mg tablet,delayed release (DR/EC) 40 mg PO DAILY Qty: 30 2RF Continued metoprolol succinate 25 mg tablet extended release 24 hr 25 mg PO DAILY ezetimibe 10 mg tablet 10 mg PO DAILY tamsulosin [Flomax] 0.4 mg Capsule 0.4 mg PO .COMPLEX Rx Instructions: 0.4 mg orally 3x/week; Takes on //SAT; amlodipine [Norvasc] 10 mg Tablet 10 mg PO 1200 insulin lispro 100 unit/mL Insulin Pen 0 unit SUBCUT TID insulin glargine [Lantus Solostar U-100 Insulin] 100 unit/mL (3 mL) Insulin Pen 15 unit SUBCUT QPM hydralazine 50 mg tablet 50 mg PO Q8H (DME) Contour Next Test Strips Strip MISCELLANEOUS 4X/DAY Discontinued lisinopril 5 mg tablet 5 mg PO DAILY aspirin 81 mg Tablet,Delayed Release (Dr/Ec) 81 mg PO DAILY furosemide [Lasix] 40 mg tablet 40 mg PO DAILY potassium chloride 20 mEq Tablet,Er Particles/Crystals 20 meq PO BIDCM 30 Days Qty: 60 0RF Referrals / Follow Up: Ryley Montenegro MD [Primary Care Provider] - Within 1 Week Denisha Thompson MD [Med Staff - Consulting] - Within 1 Week Alvaro Gutierrez MD [Med Staff - Active Staff] - Within 1 Week (see to establish care for urine retention) Robinson Steve DO [Med Staff - Active Staff] - Within 2 Weeks (see to establish care for anemia in light of the positive stool for occult blood) Disposition Disposition (needs filled in before D/C Order can be placed): Home, Self Care
[2025-04-10 15:32] LABS: Bedside Glucose 223 mg/dL (74-106)
[2025-04-10] MEDS: Tamsulosin HCl 0.4 MG Capsule PO (16:42)
== END 2025-04-10 17:09 | disposition home or self-care (01) | DRG 189 ==
LOC: ED 04-03 03:57 → ICU 04-03 04:23 → PCU 04-05 05:09
PROVIDERS: Family Medicine; Internal Medicine Cardiovascular Disease; Internal Medicine Critical Care Medicine; Internal Medicine Nephrology; Specialist; Admitting Provider Family Medicine; Emergency Provider Emergency Medicine; PCP Family Medicine; Visit Provider Student in an Organized Health Care Education/Training Program
DX: J96.21 Acute and chronic respiratory failure with hypoxia (principal); N17.0 Acute kidney failure with tubular necrosis; J18.9 Pneumonia, unspecified organism; I24.89 Other forms of acute ischemic heart disease; J90 Pleural effusion, not elsewhere classified; N13.8 Other obstructive and reflux uropathy; I13.0 Hypertensive heart and chronic kidney disease with heart failure and stage 1 through stage 4 chronic kidney disease, or unspecified chronic kidney disease; J44.0 Chronic obstructive pulmonary disease with (acute) lower respiratory infection; J44.1 Chronic obstructive pulmonary disease with (acute) exacerbation; Z66 Do not resuscitate; I50.9 Heart failure, unspecified; E11.22 Type 2 diabetes mellitus with diabetic chronic kidney disease; N18.32 Chronic kidney disease, stage 3b; I34.0 Nonrheumatic mitral (valve) insufficiency; D50.9 Iron deficiency anemia, unspecified; Z79.4 Long term (current) use of insulin; E78.5 Hyperlipidemia, unspecified; F17.210 Nicotine dependence, cigarettes, uncomplicated; I25.10 Atherosclerotic heart disease of native coronary artery without angina pectoris; E87.5 Hyperkalemia; E11.649 Type 2 diabetes mellitus with hypoglycemia without coma; M47.9 Spondylosis, unspecified; E11.65 Type 2 diabetes mellitus with hyperglycemia; Z79.82 Long term (current) use of aspirin; Z86.16 Personal history of COVID-19; R79.89 Other specified abnormal findings of blood chemistry; N40.1 Benign prostatic hyperplasia with lower urinary tract symptoms; Z82.5 Family history of asthma and other chronic lower respiratory diseases; Z82.49 Family history of ischemic heart disease and other diseases of the circulatory system; N14.11 Contrast-induced nephropathy; T50.8X5A Adverse effect of diagnostic agents, initial encounter
CPT/HCPCS: 36415; 36600; 71045; 71275; 76770; 78582; 80048; 80053; 80061; 81001; 82274; 82570; 82728; 82803; 82947; 82962; 83036; 83520; 83540; 83550; 83605; 83735; 83880; 84100; 84145; 84443; 84484; 84540; 85025; 85379; 85610; 85730; 86037; 86850; 86900; 86901; 86920; 86922; 87040; 87070; 87086; 87205; 87449; 87631; 87633; 87640; 90937; 93005; 93306; 93970; 94002; 94003; 94640; 94660; 94668; 94762; 97110; 97116; 97162; 97166; 97530; 97535; 97803; 99285; 99406; A9540; A9567; P9016; Q9967; A4216; C1752; G0257; J0612; J1938

== ENCOUNTER 2025-04-18 23:58 | Inpatient (IN) | payer MEDICARE, SELFPAY ==
[2025-04-19] VITALS (51 sets, daily range): BP systolic 115–173; BP diastolic 46–76; PULSE 75–107; RESP 12–26; TEMP 36–36.8; O2SAT 83–100; BMI 24.4
--- NOTE | 2025-04-19 00:10 | EKG12_ITS ---
Test Reason : DYSRHYTHMIA Blood Pressure : */* mmHG Vent. Rate : 102 BPM Atrial Rate : 102 BPM P-R Int : 154 ms QRS Dur : 104 ms QT Int : 356 ms P-R-T Axes : 53 26 57 degrees QTcB Int : 463 ms Sinus tachycardia Septal infarct (cited on or before 04-Apr-2025) Abnormal ECG When compared with ECG of 05-Apr-2025 12:04, Serial changes of evolving Septal infarct Present Confirmed by JACQUI URIBE, VIK ([id number]), city editor DANISH MALDONADO ([id number]) on 04/24/2025 1:58:00 PM Referred By: LUCIA Confirmed By: VIK OSMAN MD
[2025-04-19] MEDS: Ipratropium/Albuterol Sulfate 3 ML AMPUL.NEB INHALATION (00:17)
[2025-04-19] MEDS: Albuterol 2.5 MG/3 ML VIAL.NEB. INHALATION ×5 (00:17→21:53)
[2025-04-19 00:23] LABS: Absolute Neutrophil Count 11.5 X10^3/uL (2.0-7.7); Basophil# 0.07 X10^3/uL; Basophil% 0.5 % (0-1); Eosinophil# 0.14 X10^3/uL; Hematocrit 27.5 % (40-54); Hemoglobin 8.8 g/dL (13.0-16.5); Mean Corpuscular Volume 93.9 fL (80-94); Mean Platelet Vol. 11.4 fl (6.2-12.0); Monocyte% 5.7 % (0-10); NRBC Flagged by Analyzer 0 % (0-5); Neutrophil # 11.54 X10^3/uL (2.7-7.7); Neutrophil % 82.3 % (47-70); Platelet Count 289 K/mm3 (150-450); RBC Distribution Width CV 13.4 % (11.6-14.6); RBC Distribution Width SD 46.1 fl (35.1-43.9); Red Blood Count 2.93 M/mm3 (4.6-6.2)
--- NOTE | 2025-04-19 00:31 | CPS ---
[0017] x2 Albuterol given to pt. in ER
[2025-04-19 00:59] LABS: Anion Gap 15 (5-15); BUN 65 mg/dL (4-19); BUN/Creat Ratio 23.8 RATIO (10-20); Calcium,Total 8.6 mg/dL (7.6-11.0); Carbon Dioxide 20.9 mmol/L (21.0-32.0); Chloride 100 mmol/L (98-108); Creatinine, Serum 2.73 mg/dL (0.70-1.20); EST Glomerular Filtration Rate 23 (>60); Estimated Creatinine Clearance 19.84 ml/min (50-250); Glucose 406 mg/dL (70-99); Potassium 5.9 mmol/L (3.3-5.1); Pro- Brain NATRIURETIC PEPTIDE 14775 pg/mL (<=1800); Sodium Level 136 mmol/L (133-145)
--- NOTE | 2025-04-19 01:00 | RAD_ITS ---
PROCEDURE: CHEST 1 VIEW (PORTABLE) 04/19/2025 REASON FOR EXAM: DYSPNEA. TECHNIQUE: Frontal view of the chest. COMPARISON: 04/05/2025. FINDINGS: Increased mild bilateral pleural effusions. Increased passive atelectatic airspace disease of the lower lobes. Increased pulmonary venous congestion and interstitial edema. Enlarged cardiac silhouette. Normal mediastinum and rehana. Normal visualized pulmonary arteries. Atheromatous plaques of the visualized aortic arch and descending thoracic aorta. Diffuse spondylosis of the visualized thoracic spine. Normal visualized ribs, clavicles. Degenerative joint disease. There is no demonstrated abnormality of the visualized soft tissue structures of the upper abdomen. RAD/Chest 1 View (Portable) IMPRESSION: Increased mild bilateral pleural effusions. Increased passive atelectatic airspace disease of the lower lobes. Increased pulmonary venous congestion and interstitial edema. Enlarged cardiac silhouette. Reading [facility]
[2025-04-19 01:04] LABS: D-Dimer Quantitative (DVT/PE) 2.17 FEU/ug/m (0.27-0.49)
[2025-04-19] MEDS: MethylPREDNISolone 125 MG/2 ML Vial IV (01:08)
--- NOTE | 2025-04-19 02:18 | HP.PCM.HOS_ITS ---
[facility] General General Date of Admission: 04/19/25 Date of Service: 04/19/25 Chief Complaint: SOB and LE Edema. [facility] Narrative SERENA ARMANDO, is a 79 M with a past medical history of essential hypertension; on metoprolol, hydralazine and spironolactone, hyperlipidemia; on ezetimibe, DM- 2; of unknown control on insulin glargine 15U sq daily plus SSI, CAD; s/p NSTEMI, chronic combined systolic and diastolic CHF; LVEF ~40% plus stage I diastolic dysfunction with RSVP of 41 mmHg on echocardiogram done 04/03/2025, history of tobacco abuse; subsequent COPD, history of COVID-19 (2022), CKD; stage IIIb, chronic macrocytic anemia; with recent blood transfusion ~10 days ago, BPH; history of obstructive uropathy on tamsulosin, GERD; on pantoprazole, OA; with lumbar spondylolisthesis plus sciatica and recent admission here from April 03, 2025 to April 10, 2025 for treatment of acute hypoxic respiratory failure due to AE COPD with superimposed pneumonia complicated by MADONNA in the setting of CKD; stage IIIb-IV with patient initiated on hemodialysis via tunneled catheter placed during that admission along with [id number] anemia with hemoglobin dropping to 6.9 g/dL requiring blood transfusion who re-presents to [facility] ER complaining of shortness of breath and lower extremity edema. Mr. Armando reports his symptoms began approximately 1 day prior to admission with the abrupt-onset of dyspnea on exertion the progressive shortness of breath at rest. He also admits to ~2-3+ Right greater than Left lower extremity edema with persistent and progressively worsening generalized weakness since his recent previous admission. He denies associated fever, chills, nausea, vomiting, diarrhea, constipation, chest pain, palpitation, heart racing, headache or rash. In the ER he was noted to have an elevated NT pro-BNP II of 14,775 pg/mL present on admission with a corresponding CXR that revealed i ncreased mild bilateral pleural effusions with passive atelectasis airspace disease of the lower lobes and increased pulmonary venous congestion and interstitial edema with enlarged cardiac silhouette consistent with suspected AE of combined chronic systolic and diastolic CHF; LVEF of 40% plus stage I diastolic dysfunction complicated by clinical evidence of AE COPD with Acute Hypoxic Respiratory Failure with patient requiring Airvo compounded by laboratory evidence of Hyperkalemia of 5.9 mmol/L present on admission in the setting of known CKD; stage IV; with eGFR of 23 mL/min with patient recently requiring hemodialysis plus Leukocytosis of 14K present on admission without obvious signs of infection due to suspected acute stress response along with an elevated D-dimer of 2.17 present on admission with CTA of chest unable to be done due to poor renal function plus Hyperglycemia of 406 mg/dL present on admission. He was then admitted to the ICU for ongoing care for stay that is expected to extend beyond 2 midnights. [facility] Medical History Non-STEMI (non-ST elevated myocardial infarction) Bradycardia MADONNA (acute kidney injury) Anemia LV dysfunction Chronic anemia Tobacco use COPD (chronic obstructive pulmonary disease) HLD (hyperlipidemia) HTN (hypertension) BPH (benign prostatic hyperplasia) Chronic low back pain with sciatica Diabetes mellitus, type 2 CKD (chronic kidney disease), stage III Pneumonia COVID Wears glasses Wears dentures Home Medications ?Medication ?Instructions ?Recorded ?Last Taken ?Type amlodipine 10 mg tablet (Norvasc) 10 mg PO 1200 08/12/21 History insulin glargine 100 unit/mL (3 15 unit subcut QPM 03/21 Unknown History mL) subcutaneous pen (Lantus Solostar U-100 Insulin) insulin lispro 100 unit/mL 0 unit subcut TID SLIDING S JENNIFER 08/05/21 Unknown History subcutaneous pen tamsulosin 0.4 mg capsule (Flomax) 0.4 mg PO DAILY [facility] 08/05/21 Unknown History ezetimibe 10 mg tablet 10 mg PO DAILY 04/06/24 Unkn own History metoprolol succinate 25 mg 25 mg PO DAILY 04/06/24 Unk nown History tablet,extended release 24 hr blood sugar diagnostic (Contour 09/12/24 Unknown Hist ory Next Test Strips) hydralazine 50 mg tablet 50 mg PO Q8H 04/03/25 Unknow n History pantoprazole 40 mg tablet,delayed 40 mg PO DAILY #30 t abs 04/10/25 Unknown Rx release spironolactone 25 mg tablet 25 mg PO DAILY 04/19/25 Un known History Allergy/AdvReac Type Severity Reaction Status Date / Time spironolactone AdvReac Intermediate Hyperkalemi Verified 04/19/25 03:10 a Corticosteroids AdvReac Other Verified 04/03/25 00:16 (Glucocorticoids) (steroids) Kpvcqet-LAO-SwK Reductase AdvReac Other Verified 04/03/25 00:16 Inhibitor (Ympiyin-Odv-Sce Reductase Inhibitor) Family History Mother COPD (chronic obstructive pulmonary disease) Father CAD (coronary artery disease) Heart disease Surgical History Hx of cystoscopy Hx of colonoscopy Hx of left cataract extraction Hx of right cataract extraction Social History household members: spouse Smoking Status: Current every day smoker tobacco type: cigarettes alcohol intake: never substance use type: does not use ROS ROS Narrative Review of Systems: Constitutional: Patient denies fever or chills. Eyes: Patient denies change in vision or discharge from eyes. ENT: Patient denies runny nose, sore throat or ear pain. Resp: Patient admits to dyspnea on exertion the progressive shortness of breath at rest with occasional wheezing. CV: Patient admits to lower extremity edema but he denies chest pain or palpitations. GI: Patient denies abdominal pain, nausea, vomiting, diarrhea or constipation. : Patient denies dysuria or hematuria. MSK: Patient admits to generalized weakness that is persistent since his previous admission as per HPI. Skin: Patient denies rash, abscess, wounds or jaundice. Psych: Patient denies symptoms uncontrolled depression or anxiety. Neuro: Patient denies headache, paresthesias or focal neurologic deficits. Allergy: Patient denies lip swelling, tongue swelling or urticaria. Hematology: Patient denies easy bleeding or easy bruisability. Endocrinology: Patient denies polyuria, polydipsia, polyphagia or heat/cold intolerance. 14 point ROS otherwise negative save for positives noted above in HPI. Vital Signs Vital Signs Vital Signs: 04/19/25 00:00 04/19/25 00:04 04/19/25 00:17 Temperature 96.8 F L Temperature Source Axillary Pulse Rate 107 H 93 Respiratory Rate 26 H 22 H Respiratory Effort Short of Breath Labored Respiratory Pattern Tachypnea Tachypnea Blood Pressure 173/76 H Blood Pressure Mean 108 Pulse Ox 100 Oxygen Delivery Method Non-Rebreather Oxygen Flow Rate (L/min) 15 Fraction of Inspired Oxygen (FIO2) 04/19/25 00:29 04/19/25 00:30 04/19/25 00:32 Temperature Temperature Source Pulse Rate 93 95 Respiratory Rate 17 21 H Respiratory Effort Respiratory Pattern Blood Pressure 146/51 H Blood Pressure Mean 82 Pulse Ox 94 97 97 Oxygen Delivery Method High Flow Oxygen Flow Rate (L/min) 10 Fraction of Inspired Oxygen (FIO2) 04/19/25 00:33 04/19/25 00:45 04/19/25 00:50 Temperature Temperature Source Pulse Rate 94 91 Respiratory Rate 19 H 18 Respiratory Effort Respiratory Pattern Normal Blood Pressure 146/58 H Blood Pressure Mean 86 Pulse Ox 98 97 Oxygen Delivery Method Oxygen Flow Rate (L/min) Fraction of Inspired Oxygen (FIO2) 50 04/19/25 01:00 04/19/25 01:10 04/19/25 01:15 Temperature 98.3 F Temperature Source Temporal Pulse Rate 92 95 92 Respiratory Rate 14 23 H 16 Respiratory Effort Respiratory Pattern Blood Pressure 140/52 H 140/52 H 141/57 H Blood Pressure Mean 77 81 81 Pulse Ox 98 97 Oxygen Delivery Method Oxygen Flow Rate (L/min) Fraction of Inspired Oxygen (FIO2) 04/19/25 01:30 Temperature Temperature Source Pulse Rate 92 Respiratory Rate 14 Respiratory Effort Respiratory Pattern Blood Pressure 140/56 H Blood Pressure Mean 81 Pulse Ox 94 Oxygen Delivery Method Oxygen Flow Rate (L/min) Fraction of Inspired Oxygen (FIO2) Weight Weight: 156 lb Body Mass Index (BMI) 24.4 Physical Exam Const alert, oriented x3 and average body habitus Constitutional Narrative: Mild distress noted on Airvo. General Appearance: cooperative HEENT normocephalic, head/scalp atraumatic, hearing grossly normal bilaterally and moist oral mucous membranes Eyes PERRL and EOMs intact bilaterally Neck no lymphadenopathy and supple Resp Resp Narrative: Bibasilar rales with decreased breath sounds throughout. Cardio regular rate and regular rhythm GI normal to inspection, nondistended, normoactive bowel sounds, soft to palpation, non-tender and non-distended Extremity Extremity Narrative: ~2-3+ bilateral Right greater than Left lower extremity edema. Skin Skin Narrative: Patient has evidence of rash, abscess, wounds or jaundice. Neuro oriented x3, CN's II-XII intact bilaterally, moves all extremities and no focal motor deficits Sensorium / Orientation: awake, alert, oriented to person, oriented to place and oriented to time Psych affect normal Results Medical Records Data Attestation: I reviewed the patient's medical records Lab / Micro Data Attestation: I reviewed the patient's lab results. 04/19/25 04:12 04/19/25 04:12 Labs: Laboratory Results - last 24 hr 04/19/25 00:07: WBC 14.0 H, RBC 2.93 L, Hgb 8.8 L, Hct 27.5 L, MCV 93.9, MCH 30.0, MCHC 32.0, RDW Std Deviation 46.1 H, RDW Coeff of [place]air[place] 13.4, Plt Count 289, MPV 11.4, Immature Gran % (Auto) 0.500, Neut % (Auto) 82.3 H, Lymph % (Auto) 10.0 L, Woodward % (Auto) 5.7, Eos % (Auto) 1.0, Baso % (Auto) 0.5, Absolute Neuts (auto) 11.5 H, Absolute Lymphs (auto) 1.40, Nucleated RBC % 0, D-Dimer Quant (PE/DVT) 2.17 H*, Sodium 136, Potassium 5.9 H, Chloride 100, Carbon Dioxide 20.9 L, Anion Gap 15, BUN 65 H, Creatinine 2.73 H, Estim Creat Clear Calc 19.84 L, E st GFR (MDRD) Non-Af 23 L, BUN/Creatinine Ratio 23.8 H, Glucose 406 H, Calcium 8.6, [place] [address] H, Procalcitonin 0.10 Micro: Microbiology 04/19/25 00:25 Mucosa - Nose SARS-CoV-2, Influenza & RSV (PCR) - Final Imaging Radiology Impression Chest X-Ray 04/19/25 01:00 IMPRESSION: Increased mild bilateral pleural effusions. Increased passive atelectatic airspace disease of the lower lobes. Increased pulmonary venous congestion and interstitial edema. Enlarged cardiac silhouette. Reading Location: [place] [id number] Assessment & Plan Assessment/Plan (1) CHF exacerbation: QUALIFIERS: Heart failure type: combined systolic and diastolic Q ualified Code(s): I50.43 - Acute on chronic combined systolic (congestive) and diastolic (congestive) heart failure (2) COPD exacerbation: (3) Acute hypoxic respiratory failure: (4) Hyperkalemia: (5) CKD (chronic kidney disease), stage IV: (6) Leukocytosis: QUALIFIERS: Leukocytosis type: unspecified Qualified Code(s): D 72.829 - Elevated white blood cell count, unspecified (7) Lactic acidosis: (8) Hyperglycemia due to type 2 diabetes mellitus: QUALIFIERS: Diabetes mellitus intermediate insulin use: 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 AE of combined chronic systolic and diastolic CHF; LVEF of 40% plus stage I diastolic dysfunction - Admit to ICU. Start furosemide 40 mg IV twice daily plus supplemental magnesium. Continue metoprolol as before but hold spironolactone due to #3. Serialize troponin. Both patient and family have opted to make him DNR-CCA; without intubation. 2. AE COPD with Acute Hypoxic Respiratory Failure with patient requiring Airvo complicating #1 - Continue methylprednisolone IV begun in ER plus start empiric IV ceftriaxone. He is scheduled on as needed nebulizers. Wean Airvo as tolerated. Recheck ABG at 7:00 AM. 3. Hyperkalemia of 5.9 mmol/L present on admission in the setting of known CKD; stage IV; with eGFR of 23 mL/min with patient recently requiring hemodialysis compounding #1 & #2 - Patient to be treated in ER with R insulin plus D50, Kayexalate and IV furosemide. Recheck BMP at noon to follow trend. Finally, we will consult nephrology sees patient on rounds in the a.m. further recommendations with appreciated in advance. 4. Adverse Drug Reaction to spironolactone likely contributing to #3 - Stop spironolactone and add to list of allergies in an effort to prevent recurrent hyperkalemia. 5. Leukocytosis of 14K present on admission without obvious signs of infection due to suspected acute stress response attributable to #1 - #4 - Check UA to assess for possible infection with patient started on empiric ceftriaxone for #2. Serialize lactate to follow trend. Patient did not have additional signs of sepsis present on admission. 6. DM-2; uncontrolled with Hyperglycemia of 406 mg/dL present on admission with elevated Lactic Acid of 4.8 mmol/L noted shortly after admission adding to the medical complexity of #1 - #5 - Keep NPO for now while on Airvo. FSBS q. 6 hours plus SSI. 7. Elevated D-dimer of 2.17 present on admission with CTA of chest unable to be done due to poor renal function plus asymmetric (R>L) bilateral lower extremity edema - Check bilateral LE Doppler plus V/Q scan. Will also give 1 dose of enoxaparin 70 mg sq until these tests are confirmed negative. 8. Recent admission here from April 03, 2025 to April 10, 2025 for treatment of acute hypoxic respiratory failure due to AE COPD with superimposed pneumonia complicated by MADONNA in the setting of CKD; stage IIIb-IV with patient initiated on hemodialysis via tunneled catheter placed during that admission along with azivu-in-xdaghof anemia with hemoglobin dropping to 6.9 g/dL requiring blood transfusion with persistent and progressively worsening Generalized Weakness - Noted with similar pattern of admission on this occasion. PT/OT and Case Management to consult and treat on rounds in a.m. as patient will likely require rehabilitation at time of discharge with help appreciated in advance. 9. Essential hypertension; on metoprolol, hydralazine and spironolactone - Continue metoprolol and hydralazine as before but hold spironolactone in light of #3. 10. Hyperlipidemia; on ezetimibe - Resume ezetimibe as previous. 11. CAD; s/p NSTEMI - Noted. Serialize troponin. 12. History of COVID-19 (2022) - Noted. 13. Chronic macrocytic anemia; with recent blood transfusion ~10 days ago - Apparently stable with hemoglobin of 8.8 g/dL present on admission (8.6 g/dL on 04/10/2025). 14. BPH; history of obstructive uropathy on tamsulosin - Resume tamsulosin as before. 15. GERD; on pantoprazole - Maintain PPI. 16. OA; with lumbar spondylolisthesis plus sciatica - Give acetaminophen prn for [id number] (level 1-5/10) pain or fever. 17. DVT prophylaxis - Patient given renally-dosed enoxaparin 70 mg sq x 1 until V/Q scan and LE Doppler are confirmed negative for VTE. Total time: Approximately (but not less than) 75 minutes. Charges/Coding Visit Charges Inpatient E&M: 91376 Init Hosp L3
[2025-04-19] MEDS: Nitroglycerin SL (ED/IMG/CATH) 0.4 MG TABLET SL (02:19)
--- NOTE | 2025-04-19 02:24 | EKG12_ITS ---
Test Reason : DYSRHYTHMIA Blood Pressure : */* mmHG Vent. Rate : 91 BPM Atrial Rate : 91 BPM P-R Int : 158 ms QRS Dur : 98 ms QT Int : 388 ms P-R-T Axes : 5 -13 29 degrees QTcB Int : 477 ms Normal sinus rhythm Septal infarct , age undetermined ST & T wave abnormality, consider lateral ischemia Abnormal ECG Confirmed by JACQUES URIBE, MINERVA ([id number]), general expeditor DANISH MALDONADO ([id number]) on 04/20/2025 1:02:55 PM Referred By: LUCIA Confirmed By: MINERVA HANNA MD
--- NOTE | 2025-04-19 02:27 | EX.ED.DYSGE1 ---
HPI History of Present Illness Chief Complaint: Shortness of Breath Informant: patient, spouse/S.O. and EMS Narrative Narrative: Patient is an 79-year-old male with past medical history of COPD and CHF as well as insulin-dependent diabetes. He was admitted to the hospital on April 03 secondary to respiratory distress. At that time he actually underwent dialysis short-term based on his symptoms. Patient states he was discharged home and is now wearing 4 to 6 L of nasal cannula oxygen 24/05. He states that despite wearing his oxygen and taking his medication over the last 24 hours he has had increasing shortness of breath. He denies any fevers or chills but with the worsening shortness of breath has concern for repeat volume overload and therefore comes in for evaluation The patient does admit to smoking half a pack a day for 60 years but denies any formal diagnosis of COPD [facility] Medical History Non-STEMI (non-ST elevated myocardial infarction) Bradycardia M[place]ONNA (acute kidney injury) Anemia LV dysfunction Chronic anemia Tobacco use COPD (chronic obstructive pulmonary disease) HLD (hyperlipidemia) HTN (hypertension) BPH (benign prostatic hyperplasia) Chronic low back pain with sciatica Diabetes mellitus, type 2 CKD (chronic kidney disease), stage III Pneumonia COVID Wears glasses Wears dentures Home Medications ?Medication ?Instructions ?Recorded ?Last Taken ?Type amlodipine 10 mg tablet (Norvasc) 10 mg PO 1200 08/05/21 08/12/21 History insulin glargine 100 unit/mL (3 15 unit subcut QPM 08/05/21 Unknown History mL) subcutaneous pen (Lantus Solostar U-100 Insulin) insulin lispro 100 unit/mL 0 unit subcut TID SLIDING SCALE 08/05/21 Unknown History subcutaneous pen tamsulosin 0.4 mg capsule (Flomax) 0.4 mg PO .COMPLEX urination 08/05/21 Unknown History ezetimibe 10 mg tablet 10 mg PO DAILY 04/06/24 Unknown History metoprolol succinate 25 mg 25 mg PO DAILY 04/06/24 Unknown History tablet,extended release 24 hr blood sugar diagnostic (Contour 09/12/24 Unknown History Next Test Strips) hydralazine 50 mg tablet 50 mg PO Q8H 04/03/25 Unknown History pantoprazole 40 mg tablet,delayed 40 mg PO DAILY #30 tabs 04/10/25 Unknown Rx release spironolactone 25 mg tablet 25 mg PO DAILY 04/19/25 Unknown History Allergy/AdvReac Type Severity Reaction Status Date / Time spironolactone AdvReac Intermediate Hyperkalemi Verified 04/19/25 03:10 a Corticosteroids AdvReac Other Verified 04/03/25 00:16 (Glucocorticoids) (steroids) Edhamht-ENA-RqT Reductase AdvReac Other Verified 04/03/25 00:16 Inhibitor (Tfiopxy-Bqa-Ofe Reductase Inhibitor) Family History Mother COPD (chronic obstructive pulmonary disease) Father CAD (coronary artery disease) Heart disease Surgical History Hx of cystoscopy Hx of colonoscopy Hx of left cataract extraction Hx of right cataract extraction Social History household members: spouse Smoking Status: Current every day smoker tobacco type: cigarettes alcohol intake: never substance use type: does not use ROS ROS ED Constitutional Constitutional ED: Denies chills or fever(s) ENT ENT ED: Denies rhinorrhea or sore throat Cardiovascular Cardiovascular: Reports orthopnea and racing heartbeat; Denies chest pain or palpitations Respiratory/Chest Respiratory/Chest: Reports cough, dyspnea, dyspnea on exertion, orthopnea and sputum Gastrointestinal Gastrointestinal: Denies abdominal pain, diarrhea, nausea or vomiting Genitourinary Genitourinary ED: Denies dysuria Musculoskeletal Musculoskeletal: Denies myalgias Integumentary Denies rash Neurologic Neurologic: Reports weakness; Denies headache(s) Hematologic/Lymphatic Hematologic/Lymphatic: Denies easy bleeding or easy bruising Allergic/Immunologic Allergic/Immunologic ED: Denies mouth swelling or tongue swelling EXAM Physical Exam Const Vital Signs: 04/19/25 00:00 04/19/25 00:04 04/19/25 00:17 Temperature 96.8 F L Temperature Source Axillary Pulse Rate 107 H 93 Respiratory Rate 26 H 22 H Respiratory Effort Short of Breath Labored Respiratory Pattern Tachypnea Tachypnea Blood Pressure 173/76 H Blood Pressure Mean 108 Pulse Ox 100 Oxygen Delivery Method Non-Rebreather Oxygen Flow Rate (L/min) 15 Fraction of Inspired Oxygen (FIO2) 04/19/25 00:29 04/19/25 00:30 04/19/25 00:32 Temperature Temperature Source Pulse Rate 93 95 Respiratory Rate 17 21 H Respiratory Effort Respiratory Pattern Blood Pressure 146/51 H Blood Pressure Mean 82 Pulse Ox 94 97 97 Oxygen Delivery Method High Flow Oxygen Flow Rate (L/min) 10 Fraction of Inspired Oxygen (FIO2) 04/19/25 00:33 04/19/25 00:45 04/19/25 00:50 Temperature Temperature Source Pulse Rate 94 91 Respiratory Rate 19 H 18 Respiratory Effort Respiratory Pattern Normal Blood Pressure 146/58 H Blood Pressure Mean 86 Pulse Ox 98 97 Oxygen Delivery Method Oxygen Flow Rate (L/min) Fraction of Inspired Oxygen (FIO2) 50 04/19/25 01:00 04/19/25 01:10 04/19/25 01:15 Temperature 98.3 F Temperature Source Temporal Pulse Rate 92 95 92 Respiratory Rate 14 23 H 16 Respiratory Effort Respiratory Pattern Blood Pressure 140/52 H 140/52 H 141/57 H Blood Pressure Mean 77 81 81 Pulse Ox 98 97 Oxygen Delivery Method Oxygen Flow Rate (L/min) Fraction of Inspired Oxygen (FIO2) 04/19/25 01:30 04/19/25 01:45 04/19/25 02:00 Temperature 97.7 F L Temperature Source Temporal Pulse Rate 92 92 92 Respiratory Rate 14 14 23 H Respiratory Effort Respiratory Pattern Blood Pressure 140/56 H 134/56 H 140/53 H Blood Pressure Mean 81 78 82 Pulse Ox 94 95 94 Oxygen Delivery Method Airvo Oxygen Flow Rate (L/min) 50 Fraction of Inspired Oxygen (FIO2) 04/19/25 02:00 04/19/25 02:15 04/19/25 02:19 Temperature Temperature Source Pulse Rate 94 92 Respiratory Rate 18 Respiratory Effort Respiratory Pattern Blood Pressure 132/54 H 149/57 H 140/53 H Blood Pressure Mean 77 82 Pulse Ox 93 Oxygen Delivery Method Oxygen Flow Rate (L/min) Fraction of Inspired Oxygen (FIO2) 04/19/25 02:19 04/19/25 02:22 04/19/25 02:30 Temperature 97.7 F L Temperature Source Pulse Rate 92 92 90 Respiratory Rate 19 H 19 H 15 Respiratory Effort Respiratory Pattern Blood Pressure 140/53 H 140/53 H 132/58 H Blood Pressure Mean 79 82 79 Pulse Ox 94 94 94 Oxygen Delivery Method Oxygen Flow Rate (L/min) Fraction of Inspired Oxygen (FIO2) 04/19/25 02:45 04/19/25 03:00 Temperature 97.7 F L Temperature Source Oral Pulse Rate 90 97 Respiratory Rate 18 16 Respiratory Effort Respiratory Pattern Blood Pressure 136/61 H 134/54 H Blood Pressure Mean 83 80 Pulse Ox 92 98 Oxygen Delivery Method Airvo Oxygen Flow Rate (L/min) 50 Fraction of Inspired Oxygen (FIO2) Positive well nourished and well developed Constitutional Narrative: Patient is in respiratory distress with tachypnea and accessory muscle use General Appearance ED: well developed; Negative for pallor HEENT Reports dry mucous membranes HEENT Narrative: No tongue or lip swelling no oral lesions no airway edema or compromise Mucous membranes are dry and tacky without secondary findings to suggest infection Mouth ED: Yes dry mucous membranes Mouth: dry mucous membranes Eyes PERRL and EOMs intact bilaterally General Eye ED: Negative for pale conjunctiva or scleral icterus Neck supple and no JVD Neck Narrative: No nuchal rigidity or meningeal signs JVD is noted bilaterally Chest Wall palpation of chest normal Chest Narrative: No bony deformity or subcutaneous emphysema noted Resp Resp Narrative: Patient is in respiratory distress with tachypnea and accessory muscle use. He can only speak in 1-2 word sentences. Breath sounds are severely diminished throughout with diffuse inspiratory and expiratory wheezing and faint crackles noted in the bilateral bases Cardio regular rhythm Rate: tachycardic and other Other Details: Tachycardic rate with regular rhythm Radial and carotid pulses are equal and symmetric GI normal to inspection, nondistended, normoactive bowel sounds, non-tender, non-distended and no masses GI Narrative: No voluntary guarding or rigidity or pulsatile mass No fluid wave noted Auscultation: normoactive bowel sounds Palpation: soft Extremity Extremity Narrative: +2-3 pitting edema to the bilateral lower extremities which is slightly greater on the right Negative Homans' sign bilaterally Neuro oriented x3, CN's II-XII intact bilaterally and no sensory deficits noted Sensorium / Orientation: alert Motor Exam: strength 5/5 throughout Psych mental status grossly normal Skin no rashes or lesions noted General Skin Exam: Negative for jaundice or pallor MDM MDM MDM Narrative Medical decision making narrative: Patient arrived to the ER in respiratory distress. He was now requiring 10 to 15 L to keep his pulse ox above 90%. Despite the pulse ox reading above 90 he still had dyspnea with speech and increased work of breathing. As he admits to smoking for roughly 60 years and does have both inspiratory and expiratory wheezing I had concern for COPD exacerbation and therefore he was given albuterol and DuoNeb treatments as well as 125 of Solu-Medrol. There is also concern for volume overload based on his recent hospitalization and peripheral edema. His chest x-ray was obtained and compared to April 03 and he has worsening vascular congestion and now pleural effusions indicating his shortness of breath is most likely volume overload/CHF. Secondary to this he was transitioned to Airvo at 50 L and had improvement of his work of breathing and symptoms. He was also given sublingual nitro and oral captopril to reduce preload and afterload. He is chronically anemic and his hemoglobin is at baseline therefore I feel no need for blood transfusion. Creatinine is elevated at 2.7 but this is improved compared to recent hospitalization at 3.5. However because of the high value I do not feel that diuretics are appropriate and therefore they will be held at this time. With his recent hospitalization and the fact his right leg is slightly more swollen than the left there was concern for potential pulmonary embolus. The D-dimer is elevated at 2.17 but I cannot perform a CTA of the chest based on his chronic kidney disease. However he does not have pleuritic chest pain or calf tenderness so this is most likely a false elevation. The patient is also hyperkalemic and secondary to his he will be given calcium gluconate to stabilize cardiac membranes as well as insulin and Kayexalate to help with resolution of this. At this time he has had improvement with the provided medication and the Airvo but his risk for recurrent symptoms or need for progression to BiPAP or intubation is high and therefore I feel that he should be placed in the ICU. The case was discussed with the hospitalist who agrees with this and therefore he will be admitted to their care at this time for continued treatment of his CHF exacerbation/respiratory failure History & Record Review Discussion w/independent historian: EMS personnel, Patient and Family Lab Data Attestation: I reviewed the patient's lab results. Labs: Laboratory Results - last 24 hr 04/19/25 04/19/25 00:07 02:54 WBC 14.0 H RBC 2.93 L Hgb 8.8 L Hct 27.5 L MCV 93.9 MCH 30.0 MCHC 32.0 RDW Std Deviation 46.1 H RDW Coeff of Humaira 13.4 Plt Count 289 MPV 11.4 Immature Gran % (Auto) 0.500 Neut % (Auto) 82.3 H Lymph % (Auto) 10.0 L Starke % (Auto) 5.7 Eos % (Auto) 1.0 Baso % (Auto) 0.5 Absolute Neuts (auto) 11.5 H Absolute Lymphs (auto) 1.40 Nucleated RBC % 0 D-Dimer Quant (PE/DVT) 2.17 H* Sodium 136 Potassium 5.9 H Chloride 100 Carbon Dioxide 20.9 L Anion Gap 15 BUN 65 H Creatinine 2.73 H Estim Creat Clear Calc 19.84 L Est GFR (MDRD) Non-Af 23 L BUN/Creatinine Ratio 23.8 H Glucose 406 H Calcium 8.6 Magnesium 2[place]3 [place] [address] H Procalcitonin 0.10 POC Glucose 437 H Radiography Diagnostic Testing: Clinical Impression(s) from Imaging Studies Chest X-Ray 04/19/25 01:00 IMPRESSION: Increased mild bilateral pleural effusions. Increased passive atelectatic airspace disease of the lower lobes. Increased pulmonary venous congestion and interstitial edema. Enlarged cardiac silhouette. 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
--- OUTSIDE RECORDS SUMMARY | 2025-04-19 02:28 | XMS RPT_ITS | CCD ---
Author Organization [facility] Care Team Providers Care System Manager Name Role Phone Nancy Mirza Unavailable Unavailable Nancy Mirza Unavailable Unavailable Nancy Mirza Unavailable Unavailable Unavailable Primary Care Provider Nancy Calles Primary Care Provider Nancy Mirza Primary Care Provider Nancy Mirza Primary Care Provider Naresh Mirza MD, Nancy Key Primary Care Provider Nancy Mirza MD Primary Care Provider Nancy Mirza MD Primary Care Provider Nancy Mirza MD Primary Care Provider [phone] Nancy Mirza Unavailable Nancy Mirza MD Primary Care Provider [phone] Yuki, Dr. Nancy Key Attending Unavaila ian [...] Ayanna Albert Attending Unavail able JORDAN, TRISTAN STEWART Referring Unava ilable NANCY MIRZA Primary Care Unavailable Ayanna Albert DO Unavailable Generic Provider , No Assigned Pcp Primary Car e Provider Unavailable Gerri Amos MD Primary Care Provider Unavailabl e Ryley Jeter MD Primary Care Provider Nancy Mirza MD Primary Care Provider Generic Provider , No Assigned Pcp Primary Car e Provider Unavailable Generic Provider , No Assigned Pcp Primary Car e Provider Unavailable Kristy Parker MD Unavailable [phone] GENERIC PROVIDER, NO ASSIGNED PCP Primary Care Unavailable GENERIC PROVIDER, NO ASSIGNED PCP Primary Care Unavailable GENERIC PROVIDER, NO ASSIGNED PCP Primary Care Unavailable Kristy Parker MD Unavailable Ryley Jeter MD Primary Care Provider Belkis URIBE, Dr. Suresh Attending Provider Generic Provider , No Assigned Pcp Primary Car e Provider Unavailable AYANNA ALBERT Attending Unavailable GENERIC PROVIDER, NO ASSIGNED PCP Primary Care Unavailable AYANNA ALBERT Attending Unavailable AYANNA ALBERT Referring Unavailable GENERIC PROVIDER, NO ASSIGNED PCP Primary Care Unavailable [facility] Consulting Unavai BERNADETTE Felix Attending Unavailable RYLEY JETER Primary Care Unavailable SALEM, AHMED Admitting Unavailable DURAIRAJ, CINTIA Admitting Unavailable PHYSICI[facility], [facility] Consulting Un available RYLEY JETER Primary Care Unavailable NIDIA GARAY Attending Unavailable Aleksandr VERDUZCO, Dr. Lopez Emergency Provider Jaiden URIBE, Dr. Dyana Paredes Admit Provider Jaiden URIBE, Dr. Dyana Paredes Attending Provider Jaiden URIBE, Dr. Dyana Paredes Other Provider Adrian URIBE, Dr. Tijerina Other Provider Jay URIBE, Dr. Denny Other Provider Janelle URIBE, Dr. Smooth Ahn Other Provider [phone] Florentino URIBE, Dr. Grace Wilson Attending Provider Florentino URIBE, Dr. Grace Wilson Other Provider [phone] Teresa URIBE, Dr. Jose Perez Other Provider Ashly URIBE, Dr. Zavala Other Provider Bridget URIBE, Dr. Pizano Other Provider Angel URIBE, Dr. Rosa Other Provider Dr. Landry Fagan DO Attending Provider Dr. Landry Fagan DO Other Provider Chuy URIBE, Dr. Nancy Delgado Other Provider Susan URIBE, Dr. Stewart Other Provider [phone] Elvie URIBE, Dr. Butcher Other Provider Jesus URIBE, Dr. Wood Other Provider [phone] Keenan URIBE, Dr. Song Other Provider Mervin URIBE, Dr. Gutiérrez Other Provider Deep URIBE, Dr. Arredondo Other Provider Dr. Bhakti Melara MD Other Provider Radha URIBE, Dr. Guerra Other Provider [facility] ariela Woods MD, Dr. Mar Other Provider Demetri URIBE, Dr. Altamirano Other Provider [phone] Cordelia URIBE, Dr. Walsh Other Provider Lucinda URIBE, Dr. Barton Other Provider Josué VREDUZCO, Dr. Carranza Other Provider [phone] Tiffanie URIBE, Dr. Ballesteros Other Provider [phone] Jay Gallardo MD, Dr. Corona Other Provider Asim VERDUZCO, Dr. Mantilla Other Provider Andrei URIBE, Dr. Sullivan Other Provider Callum URBIE, Dr. Kent Other Provider Sai URIBE, Dr. Rain Attending Provider Adrian URIBE, Dr. Tijerina Attending Provider Veronica URIBE, Dr. Valentin Attending Provider Janelle URIBE, Dr. Smooth Ahn Attending Provider Teresa URIBE, Dr. Jose Perez Attending Provider WOO SMALL Referring Unavailable STEFFANY, CHALON TUCKER Primary Care Unavailable BROCK GROVES Attending Unavailab le PHANSANDI Admitting Unavailab le PHANSANDI Referring Unavailab le STEFFANY, CHALON TUCKER Primary Care Unavailable KRISTY PARKER Attending Unavailable PATY ORTEGA Attending Unavailab le STEFFANY, CHALON TUCKER Primary Care Unavailable STEFFANY, CHALON TUCKER Primary Care Unavailable DAY, WOO LARSEN Attending Unavailable STEFFANY, CHALON TUCKER Primary Care Unavailable DAY, WOO LARSEN Attending Unavailable STEFFANY, CHALON TUCKER Primary Care Unavailable KEELEY PATTON Attending Unavailable EJ GUIDRY Attending Unavailable STEFFANY, CHALON TUCKER Primary Care Unavailable DAY, WOO LARSEN Attending Unavailable STEFFANY, CHALON TUCKER Primary Care Unavailable STEFFANY, CHALON TUCKER Primary Care Unavailable KEELEY PATTON Attending Unavailable STEFFANY, CHALON TUCKER Primary Care Unavailable EJ GUIDRY Attending Unavailable PATY ORTEGA Attending Unavailab le STEFFANY, CHALON TUCKER Primary Care Unavailable STEFFANY, CHALON TUCKER Primary Care Unavailable DAY, WOO LARSEN Attending Unavailable STEFFANY, CHALON TUCKER Primary Care Unavailable PATY ORTEGA Attending UnavailWOO Chow Attending Unavailable [facility] Primary Care Unavailable Landry Fagan Attending Unavailable Dyana Hwang Referring Unavailable Dyana Hwang L Admitting Unavailable Tennille Limon Consulting Un[facility] Unavailable Harinder Gill Consulting Unavailable Moe Ortiz Consulting Unavailable Landry Fagan Consulting Unavailable Nancy Maharaj Consulting Unavailable Terry Davis Consulting Unavailable Hadley Bermeo Consulting Unavailable Nina Lee Consulting UnavailDuncan Rene Consulting Unavailable Brock Jeffries Consulting Unavailable Arnulfo Adame Consulting Unavailable Bhakti Melara Consulting Unavailable Charlie Garcia Consulting Unavailable Isabela Woods Consulting Unavailable Adarsh Mosquera Consulting Unavailable Nico Storey Consulting Unavailable Mick Jane Consulting Unavailable Dillon Moses Consulting Unavailable Favian Moreno Consulting Unavailable Chloe Gallardo Consulting Unavailable Jose Rafael Dailey Consulting Unavailable Nate Forbes Consulting Unavailable Donte Nolen Consulting Unavailable Dyana Hwang Consulting Unavailable Florentino, Grace Katie Consulting Unavailable Jose Mooer Attending Unavailable Breezy Campbell Consulting Unavailable Jay, Jayapradagos Consulting Unavailable Smooth Luis Consulting Unavailable Jose Moore Consulting Unavailable Florentino, Grace Katie Attending Unavailable Ryley Jeter Attending Unavailable [facility], [facility] Primary Care Unavailable Kerwin Tamayo [facility], [facility] Primary Care Unavailable [facility]ff[facility], [facility] Unavailable Young Koroma Admitting Unavailable Young Koroma Consulting Unavailable Nancy Bhatt Attending Unavailable Dyana Hwang Consulting Unavailable Dyana Hwang Admitting Unavailable Koram, Grace Katie Attending Unavailable Steffany, Chalon Primary Care Unavailable Breezy Campbell Consulting Unavailable Jay, Jayaprakas Consulting Unavailable Smooth Luis Consulting Unavailable Florentino, Grace Katie Consulting Unavailable Jose Moore Consulting Unavailable Young Koroma Consulting Unavailable Young Koroma Admitting Unavailable Nancy Bhatt Attending Unavailable Steffany, Chalon Primary Care Unavailable Nancy Bhatt Consulting Unavailable Barbie Martin Attending UnavailSmooth Holliday Attending Unavailable Breezy Campbell Attending Unavailable Steffany, Chalon Primary Care Unavailable Young Koroma Consulting Unavailable Young Koroma Admitting Unavailable Young Koroma Attending Unavailable Bernardo Davis Attending Unavailable Steffany, Chalon Primary Care Unavailable Koffi Gibbs Attending Unavailable Steffany, Chalon Primary Care Unavailable Malika Alaniz Attending Unavailable Nancy Bhatt Referring Unavailable Steffany, Chalon Primary Care Unavailable Steffany, Chalon Primary Care Unavailable Niranjan Colonag Referring Unavailable Niranjan Colonag Attending Unavailable Dyana Hwang Attending Unavailable Allergies Allergy Classification Reported Allergen(s) Allergy Type Date of Onset Reaction(s) Facility Corticosteroids (1 source) predniSONE Drug Allergy 08-24-20 23 Other (See Comments) [facility] HMG-CoA Reductase Inhibitors (statins) (3 sources) Hmg-Coa Reductase Inhibitors (Statins) Drug Allergy 01-08-20 16 [facility] (20 sources) Hmg-Coa Reductase Inhibitors (Statins); Translations: [RABXPRR-ESY-ZCP REDUCTASE INHIBITORS] Propensity to adverse reactions to drug 01-08-20 16 Other [facility] Work Phone: (6 sources) HMG-CoA reductase inhibitor Propensity to adverse reactions to drug 01-08-20 16 [facility] (20 sources) HMG-CoA reductase inhibitor Propensity to adverse reactions to drug 01-08-20 16 Unknown [facility] (17 sources) predniSONE; Translations: [predniSONE TABS] Drug Allergy 08-24-20 23 Other, Other (See Comments) [facility] (4 sources) predniSONE; Translations: [PREDNISONE] Drug Allergy 08-24-20 [facility] (3 sources) Glucocorticoid Receptor Agonists Propensity to adverse reactions 04-06-20 24 Other [facility] Comment on above: Blood sugar increase (1 source) Corticosteroids Drug allergy (disorder) 04-03-20 [facility] Repository (1 source) Dgeuygs-Dzx-Hac Reductase Inhibitor Drug allergy (disorder) 04-03-20 25 [facility] Repository Medications Current Medications Medication Drug Class(es) Dates Sig (Normalized) Sig (Original) amLODIPine 10 mg oral tablet (20 sources) Dihydropyridine Calcium Channel Deepali Start: 10-28-2024 End: 10-28-2024 take 10 mg by mouth once daily 10 mg, Oral, Daily, First dose on 10/28/24 at 0900 Start: 11-27-2023 End: 12-01-2023 take 10 mg by mouth once daily 10 mg, Oral, Daily, Fir st dose on 11/27/23 at 0900 Start: 10-22-2010 End: 04-05-2025 take 1 tablet by mouth once daily amLODIPine (NORVASC) 10 MG tablet Take 1 (one) tablet (10 mg total) by mouth daily Start: 03/06/25. 30 tablet 03/06/2025 Active amoxicillin 875 mg / clavulanate 125 [...] day. 08/12/2015 07/05/2018 Discontinued blood-glucose meter kit (5 sources) Start: 03-12-2025 End: 03-12-2026 blood-glucose meter [...] total) by mouth daily . 30 tablet 11/14/2024 11/14/2025 Active Start: 10-13-2023 ezetimibe (Zet ia) tablet 10 mg Start: 10-13-2023 End: 11-12-2023 take 1 tablet by mouth once daily at bedtime ezetimibe (Zetia) 10 mg tablet Indications: Acute on chronic systolic (congestive) heart failure Take 1 tablet (10 mg) by mouth once daily at bedtime. 30 tablet 10/13/2023 6:34 PM EST 10/13/2023 Active glucagon (rdna) 1 mg injection (1 source) Antihypoglycemic Agent Start: 10-11-2023 glucagon (Glucagen) injection 1 mg hydroCHLOROthiazide 12.5 mg oral capsule (9 sources) [...] daily dose 36 units. . 15 mL 01/01/2025 Active 3 ml insulin glargine 100 [...] sources) Insulin Analog Start: 10-28-2024 End: 10-28-2024 0-30 Units, Subcutaneous, [...] (HumaLOG) injection 0-15 Units Start: 08-05-2021 End: 04-04-2025 inject 8 [IU] by subcutaneous injection three times daily insulin lispro 100 unit/mL InPn Indications: 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) Inject 8 (eight) Units under the skin 3 (three) times a day . 7.2 mL 03/05/2025 Active Start: 03-15-2020 End: 11-02-2023 insulin lispro (HumaLOG) [...] bromide 0.042 mg/actuat metered dose nasal spray (6 sources) Anticholinergic take 2 spray(s) nasal route [...] daily . 90 tablet 3 10/23/2024 Active LORazepam 0.5 mg oral tablet (1 source) Benzodiazepine Start: 10-12-2023 LORazepam (Ativan) tablet 0.5 mg magnesium hydroxide 240 mg/ml oral suspension (1 source) Start: 10-11-2023 take 10 mL by mouth every twenty-fou r hours as needed 10 mL, oral, Daily PRN, constipation, first line, Starting on 10/11/23 at 0502 Contact provider if no bowel movement in past 48 hours. Concentra chiynere product. Follow administration with 8 ounces of water. 24 hr metoprolol succinate 25 mg extended release oral tablet (20 sources) beta-Adrenergic Deepali Start: 10-11-2023 End: 10-28-2024 take 1 tablet by mouth once daily metoprolol succinate (TOPROL-XL) 25 MG 24 hr tablet Take 1 (one) tablet (25 mg total) by mouth daily . 90 tablet 3 10/23/2024 Active nitroglycerin 0.4 mg sublingual tablet (15 sources) Nitrate Vasodilator Start: 11-14-2024 End: 11-14-2025 [...] 11/27/23 at 0337 Anginal pain, may repeat [id number] x3, then notify physician. DO NOT CRUSH [...] See Admin Instructions . 0 10/13/2023 Active pantoprazole 40 mg delayed release oral tablet (1 source) Proton Pump Inhibitor Start: 04-10-2025 take 1 tablet by mouth once daily Pantoprazole 40 mg tablet,delayed release (DR/EC) Active 40 mg PO DAILY April 10, 2025 12:00am Pen Needle, Diabetic 32 Gauge X 1/4 (1 source) Start: 06-17-2017 pen needle, diabetic 32 gauge x 1/4 Ndle use as directed 4 times per day for insulin injection. 400 each 3 06/17/2017 Active pen needle, diabetic 32 gauge x 1/4 Ndle (4 sources) Start: 06-17-2017 pen needle, diabetic 32 gauge x 1/4 Ndle use as directed 4 times per day for insulin injection. 400 each 3 06/17/2017 Active perflutren protein A microsphere (Optison) injection 0.5 mL (1 source) Start: 10-11-2023 perflutren protein A microsphere (Optison) injection 0.5 mL microencapsulated potassium chloride 20 meq extended release oral tablet (20 sources) Start: 10-12-2024 take 1 tablet by mouth once daily Klor-Con M20 20 mEq tablet Take 1 (one) tablet (20 mEq total) by mouth daily . 10/12/2024 Active Start: 09-14-2024 End: 04-10-2025 take 1 tablet by mouth twice daily at mealtime Potassium Chloride 20 mEq Tablet,Er Particles/Crystals Discontinued 20 meq PO TWICE DAILY WITH MEALS 60 September 14, 2024 1:00am April 10, 2025 3:23pm Start: 11-27-2023 End: 11-27-2023 20 mEq, Oral, Once, On Sat at 2230, For 1 dose 20mEq orally x 1 for serum Potassium in range of 3.5-4 mEq/L per Critical Care Electrolyte Replacement Therapy. DO NOT CRUSH OR CHEW (if instructed may dissolve tablet(s) in liquid) DO NOT ADMINISTER DISSOLVED TABLET VIA SURGICALLY PLACED TUBE OR TUBE less than 14 Icelandic. To administer dissolved tablet(s) mix with 4 [...] 10/24/2024 Active spironolactone 25 mg oral tablet (6 sources) Aldosterone Antagonist Start: 03-09-2025 End: 03-09-2026 take 1 tablet by mouth once daily spironolactone (ALDACTONE) 25 MG tablet Take 1 (one) tablet (25 mg total) by mouth daily . 30 tablet 03/09/2025 03/09/2026 Active sulfur hexafluoride microsphr (Lumason) [...] 100.4 F or greater, headaches, Starting on 10/27/24 at 1701 Start: 11-27-2023 End: 12-01-2023 take [...] chewable tablet 324 mg Start: 03-18-2021 End: 04-10-2025 take 1 tablet by mouth once daily Aspirin 81 mg Tablet,Delayed Release (Dr/Ec) Discontinued 81 mg PO DAILY August 05, 2021 12:00am April 10, 2025 3:24pm atorvastatin 20 mg oral tablet (1 source) [...] End: 10-11-2023 enalaprilat (Vasotec) injection 1.25 mg furosemide 40 mg oral tablet (20 sources) Loop Diuretic Start: 04-03-2025 End: 04-10-2025 take 1 tablet by mouth once daily Furosemide (Lasix) 40 mg tablet Discontinued 40 mg PO DAILY April 03, 2025 12:00am April 10, 2025 3:24pm Start: 01-18-2025 take 1 tablet by andres th every twelve hours furosemide (Lasix) 40 mg tablet Take 1 tablet (40 mg) by mouth every 12 hours. 01/18/2025 Active Start: 09-14-2024 End: 04-03-2025 take 1 tablet by mouth twice daily [...] furosemide (Lasix) injection - Omnicell Override Pull 1000 ml glucose 100 mg/ml injection (4 [...] (porcine) injection 4,000 Units Start: 11-26-2023 take 2644-0636 [IU] intravenously every four hours as needed [...] For Downtime Calculator, use: Heparin Infusion Standard hydrALAZINE hydrochloride 50 mg oral tablet (20 sources) Arteriolar Vasodilator Start: 03-05-2025 End: 04-11-2026 take 1 tablet by mouth every eight hours hydrALAZINE (APRESOLINE) 50 MG tablet Take 1 (one) tablet (50 mg total) by mouth every 8 (eight) hours . 90 tablet 03/05/2025 04/16/2025 Discontinued (Reorder (Suppress CancelRx Message to Pharmacy)) Start: 09-14-2024 End: 04-03-2025 take 1 tablet by mouth twice daily Hydralazine 50 mg tablet Discontinued 50 mg PO TWICE A DAY 120 60 September 14, 2024 1:00am April 03, 2025 12:40am hydroCHLOROthiazide 12.5 mg / lisinopril 20 mg oral tablet (8 sources) Thiazide Diuretic, Angiotensin Converting Enzyme Inhibitor End: 10-21-2023 take 1 tablet by mouth once daily lisinopriL-hydrochlorothiazide (PRINZIDE,ZESTORETIC) 20-12.5 mg per tablet Take 1 (one) tablet by mouth daily . 0 10/21/2023 Discontinued (Patient's Request) hydroCHLOROthiazide 12.5 mg / quinapril 20 mg oral tablet (20 sources) Thiazide Diuretic, Angiotensin Converting Enzyme Inhibitor Start: 08-05-2021 take 1 tablet by mouth once daily Quinapril-Hydrochlorothiazide Active 1 TABLET PO DAILY August 04, [...] Units/hr (0.1-30 mL/hr), Intravenous, Titrated, Starting on 10/27/24 at 2230, Titrate insulin IV per MAR [...] hours, then remove patch for 12 hours. lisinopril 5 mg oral tablet (20 sources) Angiotensin Converting Enzyme Inhibitor Start: 02-24-2024 End: 02-24-2024 take 1 tablet by mouth twice daily lisinopril 5 mg tablet Indications: Acute on chronic systolic (congestive) heart failure (Multi) Take 1 tablet (5 mg) by mouth 2 times a day. 60 tablet 02/24/2024 02/24/2024 Discontinued (Reorder) Start: 10-13-2023 End: 11-02-2025 take 1 tablet by mouth once daily Lisinopril 5 mg tablet Discontinued 5 mg PO DAILY April 06, 2024 12:00am April 10, 2025 3:23pm Start: 10-08-2023 End: 10-07-2024 50 ml magnesium sulfate 40 mg/ml injection [...] on 11/27/23 at 0430 Indication: CAP Start: 11-27-2023 End: [...] te Episodic/Chronic Acute and unspecified renal failure (7 sources) Acute injury of kidney; Translations: [Acute kidney failure, unspecified] Onset: 02-28-2025 11-26-2023 Episodic Acute myocardial infarction (20 sources) Myocardial infarction; Translations: [Non-ST elevation (NSTEMI) myocardial infarction] Onset: 11-27-2023 11-26-2023 Chronic Cardiac dysrhythmias (4 sources) Bradycardia; Translations: [Bradycardia, unspecified] Onset: 04-16-2025 04-05-2025 Episodic Chronic kidney disease (20 sources) Chronic kidney disease; Translations: [Chronic kidney disease, unspecified] Onset: 07-30-2023 Chronic Chronic kidney disease (8 sources) Chronic kidney disease; Translations: [Chronic kidney disease, stage 3b (Multi)] Onset: 08-25-2023 Chronic obstructive pulmonary disease and bronchiectasis (3 sources) Pulmonary emphysema; Translations: [Emphysema, unspecified] Onset: 10-27-2024 10-27-2024 Chronic Congestive heart failure; nonhypertensive (10 sources) Acute congestive heart failure; Translations: [Heart failure, unspecified] Onset: 10-18-2024 10-11-2023 Chronic Coronary atherosclerosis and other heart disease (9 sources) Coronary arteriosclerosis; Translations: [Atherosclerotic heart disease of koi coronary artery without angina pectoris] Onset: 10-17-2024 11-07-2024 Chronic Deficiency and other anemia (2 sources) Anemia; Translations: [Anemia, unspecified] 04-04-2025 Episodic Deficiency and other anemia (2 sources) Anemia, unspecified; Translations: [Anemia, unspecified] Onset: 04-16-2025 Episodic Deficiency and other anemia (1 source) Deficiency and other anemia Diabetes mellitus with complications (20 sources) Type [...] Chronic Hypertension with complications and secondary hypertension (9 sources) Hypertensive emergency; Translations: [Hypertensive emergency] Onset: 09-14-2024 10-18-2024 Chronic Occlusion or stenosis of precerebral arteries (20 sources) Bilateral carotid artery stenosis; Translations: [Occlusion and stenosis of bilateral carotid arteries] Onset: 02-18-2021 Chronic Osteoarthritis (11 sources) Arthritis; Translations: [Arthropathy, unspecified, site unspecified] Onset: 08-24-2023 08-24-2023 Chronic Other acquired deformities (3 sources) Scoliosis of lumbar spine; Translations: [Scoliosis, unspecified] 04-07-2024 Chronic Other acquired deformities (3 sources) Lumbar spondylolisthesis; Translations: [Spondylolisthesis, lumbar region] 04-07-2024 Episodic Other aftercare (1 source) Post-discharge follow-up; Translations: [Encounter for follow-up examination after completed treatment for conditions other than malignant neoplasm] 03-09-2025 Episodic Other and ill-defined heart disease (5 sources) Systolic dysfunction; Translations: [Other ill-defined heart diseases] 10-21-2023 Chronic Other and ill-defined heart disease (2 sources) Left ventricular cardiac dysfunction; Translations: [Heart disease, unspecified] 04-03-2025 Chronic Other and ill-defined heart disease (2 sources) Other ill-defined heart diseases; Translations: [Other ill-defined heart diseases] Onset: 10-18-2024 Chronic Other and ill-defined heart disease (2 sources) Heart disease, unspecified; Translations: [Heart disease, unspecified] Onset: 04-16-2025 Chronic Other lower respiratory disease (3 sources) Acute cardiac pulmonary edema ; Translations: [Acute pulmonary edema] 09-22-2024 Episodic Other non-epithelial cancer of skin (6 sources) Squamous cell carcinoma of skin of [...] chronic respiratory failure with hypoxia] 11-30-2023 Chronic Respiratory failure; insufficiency; arrest (adult) (10 sources) Acute respiratory failure; Translations: [Acute respiratory failure with hypoxia] Onset: 04-16-2025 10-11-2023 Episodic Septicemia (except in labor) (3 sources) Sepsis; [...] screening] Onset: 03-01-2011 10-29-2017 Unclassified (1 source) see to establish care for urine retention Past or Other Problems Problem Classification Problem Date Documented Da te Episodic/Chronic Diabetes mellitus without complication (20 sources) Hyperglycemia; Translations: [Hyperglycemia, unspecified] Onset: 10-27-2024 [...] neoplasm of prostate] Onset: 03-01-2011 10-29-2017 Episodic Spondylosis; intervertebral disc disorders; other back problems (4 sources) Low back pain; Translations: [Low back pain] Onset: 05-25-2024 04-06-2024 Episodic Viral infection (11 sources) Disease caused by 2019-nCoV; Translations: [COVID-19] Onset: 10-11-2023 Resolved: 10-13-2023 10-11-2023 Episodic Results Test Name Value Interpretation Reference Range Facility CBC W/Diff, Automatedon 04-01 Absolute Neut Normal 2.0-7.7 [facility] Comment on above: Result Comment: Canc elled via OM: Order cancelled - Patient discharged Performed By: #### L 100.0100 ####[facility] [address] [place], [address] HCT Normal 40-54 [facility] Comment on above: Result Comment: Canc elled via OM: Order cancelled - Patient discharged Performed By: #### L 100.0100 ####[facility] [address] [place], [address] HGB Normal 13.0-16.5 [facility] Comment on above: Result Comment: Canc elled via OM: Order cancelled - Patient discharged Performed By: #### L 100.0100 ####[facility] [address] [place], [address] MCH Normal 27.0-32.0 [facility] Comment on above: Result Comment: Canc elled via OM: Order cancelled - Patient discharged Performed By: #### L 100.0100 ####[facility] [address] [place], [address] MCHC Normal 32-36 [facility] Comment on above: Result Comment: Canc elled via OM: Order cancelled - Patient discharged Performed By: #### L 100.0100 ####[facility] [address] [place], [address] MCV Normal 80-94 [facility] Comment on above: Result Comment: Canc elled via OM: Order cancelled - Patient discharged Performed By: #### L 100.0100 ####[facility] [address] [place], [address] NEUT% Normal 47-70 [facility] Comment on above: Result Comment: Canc elled via OM: Order cancelled - Patient discharged Performed By: #### L 100.0100 ####[facility] [address] [place], [address] PLT Normal 150-450 [facility] Comment on above: Result Comment: Canc elled via OM: Order cancelled - Patient discharged Performed By: #### L 100.0100 ####[facility] [address] [place], [address] RBC Normal 4.6-6.2 [facility] Comment on above: Result Comment: Canc elled via OM: Order cancelled - Patient discharged Performed By: #### L 100.0100 ####[facility] [address] [place], [address] RDW CV Normal 11.6-14.6 [facility] Comment on above: Result Comment: Canc elled via OM: Order cancelled - Patient discharged Performed By: #### L 100.0100 ####[facility] [address] [place], [address] RDW SD Normal 35.1-43.9 [facility] Comment on above: Result Comment: Canc elled via OM: Order cancelled - Patient discharged Performed By: #### L 100.0100 ####[facility] [address] [place], [address] WBC Normal 4.4-11.0 [facility] Comment on above: Result Comment: Canc elled via OM: Order cancelled - Patient discharged Performed By: #### L 100.0100 ####[facility] [address] [place], [address] Absolute lymphocyte countOrd ered By: Grace Arnold on 04-10-2025 Lymphocytes Auto (Unsp spec) [#/Vol] 1.09 10*3/uL 0.83-4.51 [facility] Absolute neutrophil countOrd ered By: Grace Arnold on 04-10-2025 Neutrophils (Bld) [#/Vol] 9.6 10*3/uL High 2.0-7.7 [facility] Anion gap in Serum or Plasma Ordered By: Graceanabelle Arnold on 04-10-2025 Anion gap [Moles/Vol] 13 mmol/L 5-15 [facility] Automated lymphocyte count a s percentage of total leukocytesOrdered By: Grace Manjeetvinod on 04-10-2025 Lymphocytes/100 WBC Auto (Unsp spec) 9.4 % Low 19-41 [facility] BUN/creatinine ratioOrdered By: Grace Arnold on 04-10-2025 Urea nitrogen/Creatinine [Mass ratio] 22.8 mg/mg High 10-20 [facility] Basic Metabolic Profile (BMP )on 04-10-2025 BUN/CRE 22.8 RATIO High 10- [facility] Comment on above: Performed By: #### L 500.2500 ####[facility] [address] [place], [address] Calcium [Mass/Vol] 8.5 mg/dL Normal 7.6-11.0 [facility] Comment on above: Performed By: #### L 500.2500 ####[facility] [address] [place], [address] Chloride [Moles/Vol] 101 mmol/L Normal 98-108 [facility] Comment on above: Performed By: #### L 500.2500 ####[facility] [address] [place], [address] CO2 [Moles/Vol] 22.6 mmol/L Normal 21.0-32.0 [facility] Comment on above: Performed By: #### L 500.2500 ####[facility] [address] [place], [address] Creatinine [Mass/Vol] 3.48 mg/dL High 0.70-1.20 [facility] Comment on above: Performed By: #### L 500.2500 ####[facility] [address] [place], [address] ECRCL 15.24 ml/min Low 50-250 [facility] Comment on above: Performed By: #### L 500.2500 ####[facility] [address] [place], [address] GAP 13 Normal 5-15 [facility] Comment on above: Performed By: #### L 500.2500 ####[facility] [address] [place], [address] GFR/1.73 sq M.predicted among non-blacks MDRD (S/P/Bld) [Vol rate/Area] 17 mL/min/{1.73_m2} Low >60 [facility] Comment on above: Result Comment: mL/m in/1.73m2 CKD-EPI Creatinine Equation (2020) Performed By: #### L 500.2500 ####[facility] [address] [place], [address] Glucose [Mass/Vol] 287 mg/dL High 70-99 [facility] Comment on above: Performed By: #### L 500.2500 ####[facility] [address] [place], [address] Potassium [Moles/Vol] 4.2 mmol/L Normal 3.3-5.1 [facility] Comment on above: Performed By: #### L 500.2500 ####[facility] [address] [place], [address] Sodium [Moles/Vol] 137 mmol/L Normal 133-145 [facility] Comment on above: Performed By: #### L 500.2500 ####[facility] [address] [place], [address] Urea nitrogen [Mass/Vol] 79 mg/dL High 4-19 [facility] Comment on above: Performed By: #### L 500.2500 ####[facility] [address] [place], [address] Basophil percentageOrdered B y: Grace Arnold on 04-10-2025 Basophils/100 WBC (Bld) 0.1 % 0-1 [facility] Bedside Glucoseon 04-10-2025 FINGERSTICK GLU 223 mg/dL High 74-106 [facility] Comment on above: Result Comment: ADITI GEMENT OF PATIENT CARE PER NURSING PROTOCOL Performed By: #### L 501.080 ####[facility] [address] [place], [address] FINGERSTICK GLU 274 mg/dL High 74-106 [facility] Comment on above: Result Comment: ADITI GEMENT OF PATIENT CARE PER NURSING PROTOCOL Performed By: #### L 501.080 ####[facility] [address] [place], [address] CBC W/Diff, Automatedon 04-01 0-2024 Absolute Lymph 1.09 X10 3/uL Normal 0.83-4.51 [facility] Comment on above: Performed By: #### L 100.0100 ####[facility] [address] [place], [address] Absolute Neut 9.6 X10 3/uL High 2.0-7.7 [facility] Comment on above: Performed By: #### L 100.0100 ####[facility] [address] [place], [address] Basophils/100 WBC (Bld) 0.1 % Normal 0-1 [facility] Comment on above: Performed By: #### L 100.0100 ####[facility] [address] [place], [address] Eosinophils/100 WBC (Bld) 0.1 % Normal 0-5 [facility] Comment on above: Performed By: #### L 100.0100 ####[facility] [address] [place], [address] Erythrocyte distribution width (RBC) [Ratio] 13.6 % Normal 11.6-14.6 [facility] Comment on above: Performed By: #### L 100.0100 ####[facility] [address] [place], [address] Hematocrit (Bld) [Volume fraction] 26.0 % Low 40-54 [facility] Comment on above: Performed By: #### L 100.0100 ####[facility] [address] [place], [address] Hemoglobin (Bld) [Mass/Vol] 8.6 g/dL Low 13.0-16.5 [facility] Comment on above: Performed By: #### L 100.0100 ####[facility] [address] [place], [address] IG% 0.800 Normal 0.0-0.9 [facility] Comment on above: Result Comment: IG% - Immature Granulocytes (promyelocytes, myelocytes andmetamyelocytes) > 1% indicates that a LEFT SHIFT is Present. Performed By: #### L 100.0100 ####[facility] [address] [place], [address] Lymphocytes/100 WBC (Bld) 9.4 % Low 19-41 [facility] Comment on above: Performed By: #### L 100.0100 ####[facility] [address] [place], [address] MCH (RBC) [Entitic mass] 30.2 pg Normal 27.0-32.0 [facility] Comment on above: Performed By: #### L 100.0100 ####[facility] [address] [place], [address] MCHC (RBC) [Mass/Vol] 33.1 g/dL Normal 32-36 [facility] Comment on above: Performed By: #### L 100.0100 ####[facility] [address] [place], [address] MCV (RBC) [Entitic vol] 91.2 fL Normal 80-94 [facility] Comment on above: Performed By: #### L 100.0100 ####[facility] [address] [place], [address] Monocytes/100 WBC (Bld) 7.0 % Normal 0-10 [facility] Comment on above: Performed By: #### L 100.0100 ####[facility] [address] [place], [address] Neutrophils/100 WBC (Bld) 82.6 % High 47-70 [facility] Comment on above: Performed By: #### L 100.0100 ####[facility] [address] [place], [address] Nucleated RBC (Bld) [#/Vol] 0 10*3/uL Normal 0-5 [facility] Comment on above: Performed By: #### L 100.0100 ####[facility] [address] [place], [address] Platelet mean volume (Bld) [Entitic vol] 12.4 fL High 6.2-12.0 [facility] Comment on above: Performed By: #### L 100.0100 ####[facility] [address] [place], [address] Platelets (Bld) [#/Vol] 193 10*3/uL Normal 150-450 [facility] Comment on above: Performed By: #### L 100.0100 ####[facility] [address] [place], [address] RBC (Bld) [#/Vol] 2.85 10*6/uL Low 4.6-6.2 [facility] Comment on above: Performed By: #### L 100.0100 ####[facility] [address] [place], [address] RDW SD 45.1 fl High 35.1-43.9 [facility] Comment on above: Performed By: #### L 100.0100 ####[facility] [address] [place], [address] WBC (Bld) [#/Vol] 11.6 10*3/uL High 4.4-11.0 [facility] Comment on above: Performed By: #### L 100.0100 ####[facility] [address] [place], [address] Carbon dioxide, total [Moles /volume] in Central venous bloodOrdered By: Grace Arnold on 04-10-2025 CO2 [Moles/Vol] 22.6 mmol/L 21.0-32.0 [facility] Chloride assayOrdered By: Na na Florentino on 04-10-2025 Chloride [Moles/Vol] 101 mmol/L 98-108 [facility] Discharge Instructionon 04-01 Discharge Instruction Normal [facility] Eosinophil percentageOrdered By: Grace Arnold on 04-10-2025 Eosinophils/100 WBC (Bld) 0.1 % 0-5 [facility] Erythrocyte distribution wid th ratioOrdered By: Grace Anrold on 04-10-2025 Erythrocyte distribution width (RBC) [Ratio] 13.6 % 11.6-14.6 [facility] Erythrocyte distribution wid th standard deviationOrdered By: Grace Arnold on 04-10-2025 Erythrocyte distribution width (RBC) [Ratio] 45.1 fl High 35.1-43.9 [facility] Glomerular filtration rate ( GFR) estimation/1.73 sq m using serum, plasma, or whole bOrdered By: Grace Arnold on 04-10-2025 GFR/1.73 sq M.predicted among non-blacks MDRD (S/P/Bld) [Vol rate/Area] 17 mL/min/{1.73_m2} Low >60 [facility] Comment on above: mL/min/1.73m2 CKD-EP I Creatinine Equation (2020) [facility] deOrdered By: Grace Arnold on 04-10-2025 Glucose [Mass/Vol] 223 mg/dL High 74-106 [facility] Comment on above: MANAGEMENT OF PATIEN T CARE PER NURSING PROTOCOL Hematocrit Auto (Bld) [Volum e fraction]Ordered By: Grace Arnold on 04-10-2025 Hematocrit (Bld) [Volume fraction] 26.0 % Low 40-54 [facility] Hemoglobin measurementOrdere d By: Grace Arnold on 04-10-2025 Hemoglobin (Bld) [Mass/Vol] 8.6 g/dL Low 13.0-16.5 [facility] Immature granulocytes/100 WB C Auto (Bld)Ordered By: Grace Arnold on 04-10-2025 Immature granulocytes/100 WBC (Bld) 0.800 % 0.0-0.9 [facility] Comment on above: IG% - Immature Granu locytes (promyelocytes, myelocytes and metamyelocytes) > 1% indicates that a LEFT SHIFT is Present. MCV (mean corpuscular volume ) determinationOrdered By: Grace Arnold on 04-10-2025 MCV (RBC) [Entitic vol] 91.2 fL 80-94 [facility] Mean corpuscular hemoglobin (MCH) determinationOrdered By: Grace Arnold on 04-10-2025 MCH (RBC) [Entitic mass] 30.2 pg 27.0-32.0 [facility] Mean corpuscular hemoglobin concentration (MCHC) determinationOrdered By: Grace Arnold on 04-10-2025 MCHC (RBC) [Mass/Vol] 33.1 g/dL 32-36 [facility] Mean platelet volume determi nationOrdered By: Grace Arnold on 04-10-2025 Platelet mean volume (Bld) [Entitic vol] 12.4 fL High 6.2-12.0 [facility] Monocyte percentageOrdered B y: Grace Arnold on 04-10-2025 Monocytes/100 WBC (Bld) 7.0 % 0-10 [facility] Neutrophil percentageOrdered By: Grace Arnold on 04-10-2025 Neutrophils/100 WBC (Bld) 82.6 % High 47-70 [facility] Nucleated red blood cell per centageOrdered By: Grace Arnold on 04-10-2025 Nucleated RBC/100 WBC (Bld) [Ratio] 0 % 0-5 [facility] Platelet countOrdered By: Kesha Arnold on 04-10-2025 Platelets (Bld) [#/Vol] 193 10*3/uL 150-450 [facility] Potassium measurement (mass/ volume)Ordered By: Grace Arnold on 04-10-2025 Potassium (Unsp spec) [Mass/Vol] 4.2 mmol/L 3.3-5.1 [facility] RBC Auto (Bld) [#/Vol]Ordere d By: Grace Arnold on 04-10-2025 RBC (Bld) [#/Vol] 2.85 10*6/uL Low 4.6-6.2 [facility] Serum creatinine measurement (mass/volume)Ordered By: Grace Arnold on 04-10-2025 Creatinine [Mass/Vol] 3.48 mg/dL High 0.70-1.20 [facility] Serum glucose measurement (m ass/volume)Ordered By: Grace Arnold on 04-10-2025 Glucose [Mass/Vol] 287 mg/dL High 70-99 [facility] Serum or plasma calcium nikkie urement (mass/volume)Ordered By: Grace Arnold on 04-10-2025 Calcium [Mass/Vol] 8.5 mg/dL 7.6-11.0 [facility] Serum or plasma urea nitroge n measurement (mass/volume)Ordered By: Grace Arnold on 04-10-2025 Urea nitrogen [Mass/Vol] 79 mg/dL High 4-19 [facility] Sodium levelOrdered By: Grace Arnold on 04-10-2025 Sodium [Moles/Vol] 137 mmol/L 133-145 [facility] White blood cell (WBC) count Ordered By: Grace Arnold on 04-10-2025 WBC (Bld) [#/Vol] 11.6 10*3/uL High 4.4-11.0 [facility] ANCAon 04-09-2025 Atypical pANCA <1:20 Normal Neg:<1:20 [facility] Comment on above: Result Comment: The atypical pANCA pattern has been observed in asignificant percentage of patients with ulcerative colitis,primary sclerosing cholangitis and autoimmune hepatitis.Performed at: CB - [facility] [address] [place], [place] [id number] Director: Todd Anderson PhD, Phone: [phone] Performed By: #### L 3300.1200 ####[facility] [address] [place], [place], [id number] Cytoplasmic Ab <1:20 Normal Neg:<1:20 [facility] Comment on above: Performed By: #### L 3300.1200 ####[facility] [address] [place], [place], [address] Perinuclear Ab. <1:20 Normal Neg:<1:20 [facility] Comment on above: Result Comment: The presence of positive fluorescence exhibiting P-ANCA orC-ANCA patterns alone is not specific for the diagnosis ofWegener's Granulomatosis (WG) or microscopic polyangiitis.Decisions about treatment should not be based solely onANCA IFA results. The [employer] Consensusrecommends follow up testing of positive sera with both MN-3 and MPO-ANCA enzyme immunoassays. As many as 5% serumsamples are positive only by EIA. Ref. AM J Clin Mqjxkm4005;111:507-513. Performed By: #### L 3300.1200 ####[facility] [address] [place], [place], [id number] Anti-Glomerular Basement Mem bon 04-09-2025 ANTI-GLOM BM Ab < 0.2 Normal 0.0-0.9 [facility] Comment on above: Result Comment: Perf ormed at: - [facility] [address] [id number] Director: Mignon Taylor MD, Phone: [phone] Performed By: #### L 8559.8509 ####[facility] [address] [place], [place], [id number] Basic Metabolic Profile (BMP )on 04-09-2025 BUN/CRE 21.8 RATIO High 10-20 [facility] Comment on above: Performed By: #### L 500.2500 ####[facility] [address] [place], [address] Calcium [Mass/Vol] 8.5 mg/dL Normal 7.6-11.0 [facility] Comment on above: Performed By: #### L 500.2500 ####[facility] [address] [place], [address] Chloride [Moles/Vol] 104 mmol/L Normal 98-108 [facility] Comment on above: Performed By: #### L 500.2500 ####[facility] [address] [place], [address] CO2 [Moles/Vol] 21.6 mmol/L Normal 21.0-32.0 [facility] Comment on above: Performed By: #### L 500.2500 ####[facility] [address] [place], [address] Creatinine [Mass/Vol] 3.42 mg/dL High 0.70-1.20 [facility] Comment on above: Performed By: #### L 500.2500 ####[facility] [address] [place], [address] ECRCL 15.55 ml/min Low 50-250 [facility] Comment on above: Performed By: #### L 500.2500 ####[facility] [address] [place], [address] GAP 15 Normal 5-15 [facility] Comment on above: Performed By: #### L 500.2500 ####[facility] [address] [place], [address] GFR/1.73 sq M.predicted among non-blacks MDRD (S/P/Bld) [Vol rate/Area] 17 mL/min/{1.73_m2} Low >60 [facility] Comment on above: Result Comment: mL/m in/1.73m2 CKD-EPI Creatinine Equation (2020) Performed By: #### L 500.2500 ####[facility] [address] [place], [address] Glucose [Mass/Vol] 146 mg/dL High 70-99 [facility] Comment on above: Performed By: #### L 500.2500 ####[facility] [address] [place], [address] Potassium [Moles/Vol] 3.4 mmol/L Normal 3.3-5.1 [facility] Comment on above: Performed By: #### L 500.2500 ####[facility] [address] [place], [address] Sodium [Moles/Vol] 140 mmol/L Normal 133-145 [facility] Comment on above: Performed By: #### L 500.2500 ####[facility] [address] [place], [address] Urea nitrogen [Mass/Vol] 74 mg/dL High 4-19 [facility] Comment on above: Performed By: #### L 500.2500 ####[facility] [address] [place], [address] Bedside Glucoseon 04-09-2025 FINGERSTICK GLU 423 mg/dL High 74-106 [facility] Comment on above: Result Comment: ADITI GEMENT OF PATIENT CARE PER NURSING PROTOCOL Performed By: #### L 501.080 ####[facility] [address] [place], [address] FINGERSTICK GLU 217 mg/dL High 74-106 [facility] Comment on above: Result Comment: ADITI GEMENT OF PATIENT CARE PER NURSING PROTOCOL Performed By: #### L 501.080 ####[facility] [address] [place], [address] FINGERSTICK GLU 146 mg/dL High 74-106 [facility] Comment on above: Result Comment: ADITI GEMENT OF PATIENT CARE PER NURSING PROTOCOL Performed By: #### L 501.080 ####[facility] [address] [place], [address] FINGERSTICK GLU 141 mg/dL High 74-106 [facility] Comment on above: Result Comment: ADITI GEMENT OF PATIENT CARE PER NURSING PROTOCOL Performed By: #### L 501.080 ####[facility] [address] [place], [address] FINGERSTICK GLU 443 mg/dL High 74-106 [facility] Comment on above: Result Comment: ADITI GEMENT OF PATIENT CARE PER NURSING PROTOCOL Performed By: #### L 501.080 ####[facility] [address] [place], [address] FINGERSTICK GLU 475 mg/dL Invalid Interpretation Code 74-106 [facility] Comment on above: Result Comment: ADITI GEMENT OF PATIENT CARE PER NURSING PROTOCOL Performed By: #### L 501.080 ####[facility] [address] [place], [address] FINGERSTICK GLU 312 mg/dL High [address] [place] [address] Comment on above: Result Comment: ADITI GEMENT OF PATIENT CARE PER NURSING PROTOCOL Performed By: #### L 501.080 ####[facility] [address] [place], [address] CBC W/Diff, Automatedon 06-0 9-2024 Absolute Lymph 1.84 X10 3/uL Normal 0.83-4.51 [facility] Comment on above: Performed By: #### L 100.0100 ####[facility] [address] [place], [address] Absolute Neut 10.1 X10 3/uL High 2.0-7.7 [facility] Comment on above: Performed By: #### L 100.0100 ####[facility] [address] [place], [address] Basophils/100 WBC (Bld) 0.1 % Normal 0-1 [facility] Comment on above: Performed By: #### L 100.0100 ####[facility] [address] [place], [address] Eosinophils/100 WBC (Bld) 0.1 % Normal 0-5 [facility] Comment on above: Performed By: #### L 100.0100 ####[facility] [address] [place], [address] Erythrocyte distribution width (RBC) [Ratio] 14.0 % Normal 11.6-14.6 [facility] Comment on above: Performed By: #### L 100.0100 ####[facility] [address] [place], [address] Hematocrit (Bld) [Volume fraction] 25.5 % Low 40-54 [facility] Comment on above: Performed By: #### L 100.0100 ####[facility] [address] [place], [address] Hemoglobin (Bld) [Mass/Vol] 8.7 g/dL Low 13.0-16.5 [facility] Comment on above: Performed By: #### L 100.0100 ####[facility] [address] [place], [address] IG% 0.700 Normal 0.0-0.9 [facility] Comment on above: Result Comment: IG% - Immature Granulocytes (promyelocytes, myelocytes andmetamyelocytes) > 1% indicates that a LEFT SHIFT is Present. Performed By: #### L 100.0100 ####[facility] [address] [place], [address] Lymphocytes/100 WBC (Bld) 14.1 % Low 19-41 [facility] Comment on above: Performed By: #### L 100.0100 ####[facility] [address] [place], [address] MCH (RBC) [Entitic mass] 30.2 pg Normal 27.0-32.0 [facility] Comment on above: Performed By: #### L 100.0100 ####[facility] [address] [place], [address] MCHC (RBC) [Mass/Vol] 34.1 g/dL Normal 32-36 [facility] Comment on above: Performed By: #### L 100.0100 ####[facility] [facility] [address] [place], [address] MCV (RBC) [Entitic vol] 88.5 fL Normal 80-94 [facility] Comment on above: Performed By: #### L 100.0100 ####[facility] [address] [place], [address] Monocytes/100 WBC (Bld) 7.4 % Normal 0-10 [facility] Comment on above: Performed By: #### L 100.0100 ####[facility] [address] [place], [address] Neutrophils/100 WBC (Bld) 77.6 % High 47-70 [facility] Comment on above: Performed By: #### L 100.0100 ####[facility] [address] [place], [address] Nucleated RBC (Bld) [#/Vol] 0 10*3/uL Normal 0-5 [facility] Comment on above: Performed By: #### L 100.0100 ####[facility] [address] [place], [address] Platelet mean volume (Bld) [Entitic vol] 12.0 fL Normal 6.2-12.0 [facility] Comment on above: Performed By: #### L 100.0100 ####[facility] [address] [place], [address] Platelets (Bld) [#/Vol] 191 10*3/uL Normal 150-450 [facility] Comment on above: Performed By: #### L 100.0100 ####[facility] [address] [place], [address] RBC (Bld) [#/Vol] 2.88 10*6/uL Low 4.6-6.2 [facility] Comment on above: Performed By: #### L 100.0100 ####[facility] [address] [place], [address] RDW SD 45.6 fl High 35.1-43.9 [facility] Comment on above: Performed By: #### L 100.0100 ####[facility] [address] [place], [address] WBC (Bld) [#/Vol] 13.0 10*3/uL High 4.4-11.0 [facility] Comment on above: Performed By: #### L 100.0100 ####[facility] [address] [place], [address] Electrocardiogram reportOrde red By: Barbie Martin on 04-09-2025 EKG study [facility] Cardiovascular Services [address] [place] [address] 12 Lead EKG 04/04/252111 MR#: [id number] Acct: [id number] Name: ENOC ARMANDO Rep #:[id number] : 1945 79 From: Barbie black MD Attending Dr: Dr. Grace Arnold MD Status: ADM IN Ordering Dr: Grace Arnold MD Date: 04/04/25 Location: [facility] Sex: M C Admitted: 04/03/25 Test Reason : Blood Pressure : */* mmHG Vent. Rate : 47 BPM Atrial Rate : 47 BPM P-R Int : 186 ms QRS Dur : 98 ms QT Int : 422 ms P-R-T Axes : * 14 174 degrees QTcB Int : 373 ms Sinus bradycardia with marked sinus arrhythmia Left ventricular hypertrophy with repolarization abnormality ( Leeroy product ) Cannot rule out Septal infarct , age undetermined Abnormal ECG When compared with ECG of 04-Apr-2025 21:12, MANUAL COMPARISON REQUIRED DATA IS UNCONFIRMED Confirmed by VERONICA URIBE, MINERVA ([id number]), editor dictionary BLANCO BOCANEGRA ([id number]) on04/09/2025 7:17:16 AM Referred By: Confirmed By: MINERVA MARTIN MD 04/09/25 0717 Date _ Barbie Martin MD CC: Dr. Ryley Jeter MD; Dr. Grace Arnold MD ~ Signed [facility] Work Phone: EKG study [facility] Cardiovascular Services [address] [place] [address] 12 Lead EKG 04/04/252 MR#: [id number] Acct: [id number] Name: ENOC ARMANDO Rep #:[id number] : 1945 79 From: Barbie black MD Attending Dr: Dr. Grace Arnold MD Status: ADM IN Ordering Dr: Grace Arnold MD Date: 04/04/25 Location: [facility] Sex: M C Admitted: 04/03/25 Test Reason : Blood Pressure : */* mmHG Vent. Rate : 95 BPM Atrial Rate : 95 BPM P-R Int : 170 ms QRS Dur : 96 ms QT Int : 404 ms P-R-T Axes : -12 37 198 degrees QTcB Int : 507 ms Normal sinus rhythm Low voltage QRS Septal infarct , age undetermined ST & T wave abnormality, consider inferolateral ischemia Prolonged QT Abnormal ECG When compared with ECG of 04-Apr-2025 21:09, MANUAL COMPARISON REQUIRED DATA IS UNCONFIRMED Confirmed by VERONICA URIBE, MINERVA ([id number]), editor dictionary BLANCO BOCANEGRA ([id number]) 04/09/2025 7:17:37 AM Referred By: Confirmed By: MINERVA MARTIN MD 04/09/25716 _ Barbie Martin MD CC: Dr. Ryley Jeter MD; Dr. Grace Arnold MD ~ Signed [facility] Work Phone: EKG study [facility] Cardiovascular Services [address] [place] [address] 12 Lead EKG 04/04/252108 MR#: [id number] Acct: [id number] Name: ENOC ARMANDO Rep #:[id number] : 1945 79 From: Barbie black MD Attending Dr: Dr. Grace Arnold MD Status: ADM IN Ordering Dr: Grace Arnold MD Date: 04/04/25 Location: [facility] Sex: M C Admitted: 04/03/25 Test Reason : Blood Pressure : */* mmHG Vent. Rate : 57 BPM Atrial Rate : 57 BPM P-R Int : 200 ms QRS Dur : 100 ms QT Int : 462 ms P-R-T Axes : 62 0 194 degrees QTcB Int : 449 ms Sinus bradycardia Left ventricular hypertrophy with repolarization abnormality ( Leeroy product ) Cannot rule out Septal infarct , age undetermined Abnormal ECG No previous ECGs available Confirmed by VERONICA URIBE, MINERVA ([id number]), BLANCO Coyne ([id number]) on04/09/2025 7:17:54 AM Referred By: Confirmed By: MINERVA MARTIN MD 04/09/25716 _ Barbie Martin MD CC: Dr. Ryley Jeter MD; Dr. Grace Arnold MD ~ Signed [facility] Work Phone: EKG study [facility] Cardiovascular Services [address] [place] [address] 12 Lead EKG 04/03/25 0005 MR#: [id number] Acct: [id number] Name: ENOC ARMANDO Rep #:[id number] : 1945 79 From: Barbie black MD Attending Dr: Dr. Jose Moore MD Status: ADM IN Ordering Dr: John Brandon DO Date: 04/03/25 Location: [facility] Sex: M C Admitted: 04/03/25 Test Reason : SOB Blood Pressure : */* mmHG Vent. Rate : 100 BPM Atrial Rate : 100 BPM P-R Int : 130 ms QRS Dur : 92 ms QT Int : 362 ms P-R-T Axes : 53 50 17 degrees QTcB Int : 466 ms Normal sinus rhythm ST & T wave abnormality, consider inferior ischemia Abnormal ECG Confirmed by VERONICA URIBE, MINERVA ([id number]), editor dictionary BLANCO BOCANEGRA ([id number]) on04/09/2025 7:03:07 AM Referred By: Confirmed By: MINERVA MARTIN MD 04/09/25 0703 Date _ Barbie Martin MD CC: Dr. Ryley Jeter MD; Dr. Jose Moore MD; Dr. John Brandon DO ~ Signed [facility] Work Phone: EKG study [facility] Cardi[facility] Services [address] [place] [address] 12 Lead EKG 04/05/25 1204 MR#: [id number] Acct: [id number] Name: ENOC ARMANDO Rep #:[id number] : 1945 79 From: Barbie black MD Attending Dr: Dr. Jose Moore MD Status: ADM IN Ordering Dr: Grace Arnold MD Date: 04/05/25 Location: [facility] Sex: M C Admitted: 04/03/25 Test Reason : Blood Pressure : */* mmHG Vent. Rate : 77 BPM Atrial Rate : 77 BPM P-R Int : 160 ms QRS Dur : 90 ms QT Int : 410 ms P-R-T Axes : 86 57 207 degrees QTcB Int : 463 ms Normal sinus rhythm Septal infarct , age undetermined ST & T wave abnormality, consider lateral ischemia Abnormal ECG When compared with ECG of 03-Apr-2025 00:05, MANUAL COMPARISON REQUIRED DATA IS UNCONFIRMED Confirmed by VERONICA URIBE, MINERVA ([id number]), editor dictionary BLANCO BOCANEGRA ([id number]) on04/09/2025 6:57:50 AM Referred By: FLORENTINO Confirmed By: MINERVA MARTIN MD 04/09/25 0657 Date _ Barbie Martin MD CC: Dr. Ryley Jeter MD; Dr. Grace Arnold MD; Dr. Jose Moore MD ~ Signed [facility] Work Phone: Gram Stainon 04-09-2025 GS Acceptable Specimen? Yes (<25 Epithelial cells per/lpf) Gram Stain 2+ Yeast Like Organisms 2+ Gram positive cocci 1+ Gram positive rods Normal [facility] Comment on above: Performed By: #### M 100.2400, M100.2000 ####[facility] [address] [place], [place], [id number] Stool Occult Blood iFOBon STOB Positive Normal [facility] Comment on above: Performed By: #### M 100.7900 ####[facility] [address] [facility] [place], [place], [id number] Stool gastrointestinal hemog lobin detection by immunologic methodOrdered By: Jose Moore on 04-09-2025 Lower GI hemoglobin IA Ql (Stl) Positive Abnormal [facility] BRCon 04-08-2025 RC Normal Neg [facility] Comment on above: Result Comment: [id number] AP RC TRANSFUSED 04/08/25 1032 Performed By: #### B RC, BTS ####[facility] [address] [place], [address] Basic Metabolic Profile (BMP )on 04-08-2025 BUN/CRE 20.8 RATIO High 10-20 [facility] Comment on above: Performed By: #### L 500.2500 ####[facility] [address] [place], [address] Calcium [Mass/Vol] 8.5 mg/dL Normal 7.6-11.0 [facility] Comment on above: Performed By: #### L 500.2500 ####[facility] [address] [place], [address] Chloride [Moles/Vol] 100 mmol/L Normal 98-108 [facility] Comment on above: Performed By: #### L 500.2500 ####[facility] [address] [place], [address] CO2 [Moles/Vol] 20.3 mmol/L Low 21.0-32.0 [facility] Comment on above: Performed By: #### L 500.2500 ####[facility] [address] [place], [address] Creatinine [Mass/Vol] 2.97 mg/dL High 0.70-1.20 [facility] Comment on above: Performed By: #### L 500.2500 ####[facility] [address] [place], [address] ECRCL 16.83 ml/min Low 50-250 [facility] Comment on above: Performed By: #### L 500.2500 ####[facility] [address] [place], [address] GAP 16 High 5-15 [facility] Comment on above: Performed By: #### L 500.2500 ####[facility] [address] [place], [address] GFR/1.73 sq M.predicted among non-blacks MDRD (S/P/Bld) [Vol rate/Area] 20 mL/min/{1.73_m2} Low >60 [facility] Comment on above: Result Comment: mL/m in/1.73m2 CKD-EPI Creatinine Equation (2020) Performed By: #### L 500.2500 ####[facility] [address] [place], [address] Glucose [Mass/Vol] 395 mg/dL High 70-99 [facility] Comment on above: Performed By: #### L 500.2500 ####[facility] [address] [place], [address] Potassium [Moles/Vol] 4.3 mmol/L Normal 3.3-5.1 [facility] Comment on above: Performed By: #### L 500.2500 ####[facility] [address] [place], [address] Sodium [Moles/Vol] 136 mmol/L Normal 133-145 [facility] Comment on above: Performed By: #### L 500.2500 ####[facility] [address] [place], [address] Urea nitrogen [Mass/Vol] 62 mg/dL High 4-19 [facility] Comment on above: Performed By: #### L 500.2500 ####[facility] [address] [place], [address] Bedside Glucoseon 04-08-2025 FINGERSTICK GLU 415 mg/dL High 74-106 [facility] Comment on above: Result Comment: ADITI ESCOBEDO OF PATIENT CARE PER NURSING PROTOCOL Performed By: #### L 501.080 ####[facility] [address] [place], [address] FINGERSTICK GLU 420 mg/dL High 74-106 [facility] Comment on above: Result Comment: ADITI GEMENT OF PATIENT CARE PER NURSING PROTOCOL Performed By: #### L 501.080 ####[facility] [address] [place], [address] FINGERSTICK GLU 361 mg/dL High 74-106 [facility] Comment on above: Result Comment: ADITI GEMENT OF PATIENT CARE PER NURSING PROTOCOL Performed By: #### L 501.080 ####[facility] [address] [place], [address] CBC W/Diff, Automatedon 06-0 8-2025 Absolute Lymph 0.63 X10 3/uL Low 0.83-4.51 [facility] Comment on above: Performed By: #### L 100.0100 ####[facility] [address] [place], [address] Absolute Neut 7.6 X10 3/uL Normal 2.0-7.7 [facility] Comment on above: Performed By: #### L 100.0100 ####[facility] [address] [place], [address] Basophils/100 WBC (Bld) 0.0 % Normal 0-1 [facility] Comment on above: Performed By: #### L 100.0100 ####[facility] [address] [place], [address] Eosinophils/100 WBC (Bld) 0.0 % Normal 0-5 [facility] Comment on above: Performed By: #### L 100.0100 ####[facility] [address] [place], [address] Erythrocyte distribution width (RBC) [Ratio] 13.5 % Normal 11.6-14.6 [facility] Comment on above: Performed By: #### L 100.0100 ####[facility] [address] [place], [address] Hematocrit (Bld) [Volume fraction] 21.5 % Low 40-54 [facility] Comment on above: Performed By: #### L 100.0100 ####[facility] [address] [place], [address] Hemoglobin (Bld) [Mass/Vol] 6.9 g/dL Low 13.0-16.5 [facility] Comment on above: Performed By: #### L 100.0100 ####[facility] [address] [place], [address] IG% 0.500 Normal 0.0-0.9 [facility] Comment on above: Result Comment: IG% - Immature Granulocytes (promyelocytes, myelocytes andmetamyelocytes) > 1% indicates that a LEFT SHIFT is Present. Performed By: #### L 100.0100 ####[facility] [address] [place], [address] Lymphocytes/100 WBC (Bld) 7.3 % Low 19-41 [facility] Comment on above: Performed By: #### L 100.0100 ####[facility] [address] [place], [address] MCH (RBC) [Entitic mass] 29.5 pg Normal 27.0-32.0 [facility] Comment on above: Performed By: #### L 100.0100 ####[facility] [address] [place], [address] MCHC (RBC) [Mass/Vol] 32.1 g/dL Normal 32-36 [facility] Comment on above: Performed By: #### L 100.0100 ####[facility] [address] [place], [address] MCV (RBC) [Entitic vol] 91.9 fL Normal 80-94 [facility] Comment on above: Performed By: #### L 100.0100 ####[facility] [address] [place], [address] Monocytes/100 WBC (Bld) 4.2 % Normal 0-10 [facility] Comment on above: Performed By: #### L 100.0100 ####[facility] [address] [place], [address] Neutrophils/100 WBC (Bld) 88.0 % High 47-70 [facility] Comment on above: Performed By: #### L 100.0100 ####[facility] [address] [place], [address] Nucleated RBC (Bld) [#/Vol] 0 10*3/uL Normal 0-5 [facility] Comment on above: Performed By: #### L 100.0100 ####[facility] [address] [place], [address] Platelet mean volume (Bld) [Entitic vol] 12.5 fL High 6.2-12.0 [facility] Comment on above: Performed By: #### L 100.0100 ####[facility] [address] [place], [address] Platelets (Bld) [#/Vol] 176 10*3/uL Normal 150-450 [facility] Comment on above: Performed By: #### L 100.0100 ####[facility] [address] [place], [address] RBC (Bld) [#/Vol] 2.34 10*6/uL Low 4.6-6.2 [facility] Comment on above: Performed By: #### L 100.0100 ####[facility] [address] [place], [address] RDW SD 44.2 fl High 35.1-43.9 [facility] Comment on above: Performed By: #### L 100.0100 ####[facility] [address] [place], [address] WBC (Bld) [#/Vol] 8.6 10*3/uL Normal 4.4-11.0 [facility] Comment on above: Performed By: #### L 100.0100 ####[facility] [address] [place], [address] Culture, Blood (WB)on 2024 CUB No growth in [address] [facility] Comment on above: Performed By: #### L 503.6005, M200.1000 ####[facility] [address] [place], [address] Glucoseon 04-08-2025 Glucose [Mass/Vol] 528 mg/dL Invalid Interpretation Code 70-99 [facility] Comment on above: Result Comment: Crit ical Result(s) Called at 2220: by:??NBURNS TO EAFFOLTERResults read back by same. Performed By: #### L 501.0100 ####[facility] [address] [place], [address] Respiratory Cultureon 2024 RESPC Mixed normal respiratory kyler. No Streptococcus pneumoniae, beta-hemolytic Streptococcus or Staphylococcus aureus isolated. Normal [facility] Comment on above: Performed By: #### M 100.2400, M100.2000 ####[facility] [address] [place], [address] Type AND Screenon 04-08-2025 ABO and Rh group Nom (Bld) Blood group A Rh(D) positive [facility] Comment on above: Order Comment: CMV N EG? NNumber of units to transfuse: 1Reason for Ordering Blood: AcuteAre the blood/blood products to be transfused? YIs the patient having/had surgery? NWhen Ilir Performed By: #### B RC, BTS ####[facility] [address] [place], [address] Ab SCREEN GEL Negative Normal [facility] Comment on above: Order Comment: CMV N EG? NNumber of units to transfuse: 1Reason for Ordering Blood: AcuteAre the blood/blood products to be transfused? YIs the patient having/had surgery? NWart Hazel Performed By: #### B HOUSTON BTS ####[facility] [address] [place], [address] Basic Metabolic Profile (BMP )on 04-07-2025 BUN/CRE 22.1 RATIO High 10-20 [facility] Comment on above: Performed By: #### L 500.2500 ####[facility] [address] [place], [address] Calcium [Mass/Vol] 8.2 mg/dL Normal 7.6-11.0 [facility] Comment on above: Performed By: #### L 500.2500 ####[facility] [address] [place], [address] Chloride [Moles/Vol] 99 mmol/L Normal 98-108 [facility] Comment on above: Performed By: #### L 500.2500 ####[facility] [address] [place], [address] CO2 [Moles/Vol] 21.3 mmol/L Normal 21.0-32.0 [facility] Comment on above: Performed By: #### L 500.2500 ####[facility] [address] [place], [address] Creatinine [Mass/Vol] 3.61 mg/dL High 0.70-1.20 [facility] Comment on above: Performed By: #### L 500.2500 ####[facility] [address] [place], [address] ECRCL 14.50 ml/min Low 50-250 [facility] Comment on above: Performed By: #### L 500.2500 ####[facility] [address] [place], [address] GAP 16 High 5-15 [facility] Comment on above: Performed By: #### L 500.2500 ####[facility] [address] [place], [address] GFR/1.73 sq M.predicted among non-blacks MDRD (S/P/Bld) [Vol rate/Area] 16 mL/min/{1.73_m2} Low >60 [facility] Comment on above: Result Comment: mL/m in/1.73m2 CKD-EPI Creatinine Equation (2020) Performed By: #### L 500.2500 ####[facility] [address] [place], [address] Glucose [Mass/Vol] 423 mg/dL High 70-99 [facility] Comment on above: Performed By: #### L 500.2500 ####[facility] [address] [place], [address] Potassium [Moles/Vol] 4.3 mmol/L Normal 3.3-5.1 [facility] Comment on above: Performed By: #### L 500.2500 ####[facility] [address] [place], [address] Sodium [Moles/Vol] 137 mmol/L Normal 133-145 [facility] Comment on above: Performed By: #### L 500.2500 ####[facility] [address] [place], [address] Urea nitrogen [Mass/Vol] 80 mg/dL High 4-19 [facility] Comment on above: Performed By: #### L 500.2500 ####[facility] [address] [place], [address] Bedside Glucoseon 04-07-2025 FINGERSTICK GLU 402 mg/dL High 74-106 [facility] Comment on above: Result Comment: ADITI GEMENT OF PATIENT CARE PER NURSING PROTOCOL Performed By: #### L 501.080 ####[facility] [address] [place], [address] FINGERSTICK GLU 330 mg/dL High [address] [place] [address] Comment on above: Result Comment: ADITI GEMENT OF PATIENT CARE PER NURSING PROTOCOL Performed By: #### L 501.080 ####[facility] [address] [place], [address] FINGERSTICK GLU 333 mg/dL High [address] [place] [address] Comment on above: Result Comment: ADITI GEMENT OF PATIENT CARE PER NURSING PROTOCOL Performed By: #### L 501.080 ####[facility] [address] [place], [address] FINGERSTICK GLU 392 mg/dL High -[address] [place] [address] Comment on above: Result Comment: ADITI GEMENT OF PATIENT CARE PER NURSING PROTOCOL Performed By: #### L 501.080 ####[facility] [address] [place], [address] FINGERSTICK GLU 280 mg/dL High [address] [place] [address] Comment on above: Result Comment: ADITI GEMENT OF PATIENT CARE PER NURSING PROTOCOL Performed By: #### L 501.080 ####[facility] [address] [place], [address] CBC W/Diff, Automatedon 06-0 -2024 Absolute Lymph 1.30 X10 3/uL Normal 0.83-4.51 [facility] Comment on above: Performed By: #### L 100.0100 ####[facility] [address] [place], [address] Absolute Neut 8.2 X10 3/uL High 2.0-7.7 [facility] Comment on above: Performed By: #### L 100.0100 ####[facility] [address] [place], [address] Basophils/100 WBC (Bld) 0.0 % Normal 0-1 [facility] Comment on above: Performed By: #### L 100.0100 ####[facility] [address] [place], [address] Eosinophils/100 WBC (Bld) 0.1 % Normal 0-5 [facility] Comment on above: Performed By: #### L 100.0100 ####[facility] [address] [place], [address] Erythrocyte distribution width (RBC) [Ratio] 13.7 % Normal 11.6-14.6 [facility] Comment on above: Performed By: #### L 100.0100 ####[facility] [address] [place], [address] Hematocrit (Bld) [Volume fraction] 23.1 % Low 40-54 [facility] Comment on above: Performed By: #### L 100.0100 ####[facility] [address] [place], [address] Hemoglobin (Bld) [Mass/Vol] 7.7 g/dL Low 13.0-16.5 [facility] Comment on above: Performed By: #### L 100.0100 ####[facility] [address] [place], [address] IG% 0.300 Normal 0.0-0.9 [facility] Comment on above: Result Comment: IG% - Immature Granulocytes (promyelocytes, myelocytes andmetamyelocytes) > 1% indicates that a LEFT SHIFT is Present. Performed By: #### L 100.0100 ####[facility] [address] [place], [address] Lymphocytes/100 WBC (Bld) 12.6 % Low 19-41 [facility] Comment on above: Performed By: #### L 100.0100 ####[facility] [address] [place], [address] MCH (RBC) [Entitic mass] 30.8 pg Normal 27.0-32.0 [facility] Comment on above: Performed By: #### L 100.0100 ####[facility] [address] [place], [address] MCHC (RBC) [Mass/Vol] 33.3 g/dL Normal 32-36 [facility] Comment on above: Performed By: #### L 100.0100 ####[facility] [address] [place], [address] MCV (RBC) [Entitic vol] 92.4 fL Normal 80-94 [facility] Comment on above: Performed By: #### L 100.0100 ####[facility] [address] [place], [address] Monocytes/100 WBC (Bld) 8.0 % Normal 0-10 [facility] Comment on above: Performed By: #### L 100.0100 ####[facility] [address] [place], [address] Neutrophils/100 WBC (Bld) 79.0 % High 47-70 [facility] Comment on above: Performed By: #### L 100.0100 ####[facility] [address] [place], [address] Nucleated RBC (Bld) [#/Vol] 0 10*3/uL Normal 0-5 [facility] Comment on above: Performed By: #### L 100.0100 ####[facility] [address] [place], [address] Platelet mean volume (Bld) [Entitic vol] 12.3 fL High 6.2-12.0 [facility] Comment on above: Performed By: #### L 100.0100 ####[facility] [address] [place], [address] Platelets (Bld) [#/Vol] 191 10*3/uL Normal 150-450 [facility] Comment on above: Performed By: #### L 100.0100 ####[facility] [address] [place], [address] RBC (Bld) [#/Vol] 2.50 10*6/uL Low 4.6-6.2 [facility] Comment on above: Performed By: #### L 100.0100 ####[facility] [address] [place], [address] RDW SD 46.1 fl High 35.1-43.9 [facility] Comment on above: Performed By: #### L 100.0100 ####[facility] [address] [place], [address] WBC (Bld) [#/Vol] 10.4 10*3/uL Normal 4.4-11.0 [facility] Comment on above: Performed By: #### L 100.0100 ####[facility] [address] [place], [address] Ferritinon 04-07-2025 Ferritin [Mass/Vol] 69 ng/mL Normal 37-417 [facility] Comment on above: Performed By: #### L 503.6030, L503.6550 ####[facility] [address] [place], [address] Gram stainOrdered By: Dyana Hwang on 04-07-2025 Microscopic observation Gram stain Nom (Unsp spec) [facility] Iron measurement (mass/mass) Ordered By: Jose Moore on 04-07-2025 Iron (Unsp spec) [Mass/Mass] 27 ug/dL Low 65-175 [facility] Iron+Iron Binding Capacityon 04-07-2025 Iron [Mass/Vol] 27 ug/dL Low 65-175 [facility] Comment on above: Performed By: #### L 503.6030, L503.6550 ####[facility] [address] [place], [address] IRON SATURATION 10.0 Normal 9-55 [facility] Comment on above: Performed By: #### L 503.6030, L503.6550 ####[facility] [address] [place], [address] TIBC 270 ug/dL Normal 250-450 [facility] Comment on above: Performed By: #### L 503.6030, L503.6550 ####[facility] [address] [place], [address] UIBC 243 ug/dL Normal 228-428 [facility] Comment on above: Performed By: #### L 503.6030, L503.6550 ####[facility] [address] [place], [address] Microbial respiratory cultur eOrdered By: Dyana Hwang on 04-07-2025 Microorganism identified Cx Nom (Unsp spec) or Staphylococcus aureus isolated. [facility] No Panel InformationOrdered By: Jose Moore on 04-07-2025 Unsaturated Iron Binding Capacity 243 ug/dL 228-428 [facility] Serum or plasma ferritin heriberto surement (mass/volume)Ordered By: Jose Moore on 04-07-2025 Ferritin [Mass/Vol] 69 ng/mL 37-417 [facility] Serum or plasma iron saturat ion measurement (mass fraction)Ordered By: Jose Moore on 04-07-2025 Iron saturation [Mass fraction] 10.0 % 9- [facility] Basic Metabolic Profile (BMP )on 04-06-2025 BUN/CRE 21.8 RATIO High 10-20 [facility] Comment on above: Performed By: #### L 500.2500 ####[facility] [address] [place], [address] Calcium [Mass/Vol] 8.3 mg/dL Normal 7.6-11.0 [facility] Comment on above: Performed By: #### L 500.2500 ####[facility] [address] [place], [address] Chloride [Moles/Vol] 100 mmol/L Normal 98-108 [facility] Comment on above: Performed By: #### L 500.2500 ####[facility] [address] [place], [address] CO2 [Moles/Vol] 21.0 mmol/L Normal 21.0-32.0 [facility] Comment on above: Performed By: #### L 500.2500 ####[facility] [address] [place], [address] Creatinine [Mass/Vol] 4.73 mg/dL High 0.70-1.20 [facility] Comment on above: Performed By: #### L 500.2500 ####[facility] [address] [place], [address] ECRCL 11.24 ml/min Low 50-250 [facility] Comment on above: Performed By: #### L 500.2500 ####[facility] [address] [place], [address] GAP 18 High 5-15 [facility] Comment on above: Performed By: #### L 500.2500 ####[facility] [address] [place], [address] GFR/1.73 sq M.predicted among non-blacks MDRD (S/P/Bld) [Vol rate/Area] 12 mL/min/{1.73_m2} Low >60 [facility] Comment on above: Result Comment: mL/m in/1.73m2 CKD-EPI Creatinine Equation (2020) Performed By: #### L 500.2500 ####[facility] [address] [place], [address] Glucose [Mass/Vol] 233 mg/dL High 70-99 [facility] Comment on above: Performed By: #### L 500.2500 ####[facility] [address] [place], [address] Potassium [Moles/Vol] 4.2 mmol/L Normal 3.3-5.1 [facility] Comment on above: Performed By: #### L 500.2500 ####[facility] [address] [place], [address] Sodium [Moles/Vol] 139 mmol/L Normal 133-145 [facility] Comment on above: Performed By: #### L 500.2500 ####[facility] [address] [place], [address] Urea nitrogen [Mass/Vol] 103 mg/dL Invalid Interpretation Code 4-19 [facility] Comment on above: Result Comment: Crit ical Result(s) Called at: by: 04/06/2025-09:27 Neal to Andressa Khanna.??Results read back by same. Performed By: #### L 500.2500 ####[facility] [address] [place], [address] Bedside Glucoseon 04-06-2025 FINGERSTICK GLU 269 mg/dL High 74-106 [facility] Comment on above: Result Comment: ADITI GEMENT OF PATIENT CARE PER NURSING PROTOCOL Performed By: #### L 501.080 ####[facility] [address] [place], [address] FINGERSTICK GLU 225 mg/dL High 74-106 [facility] Comment on above: Result Comment: ADITI GEMENT OF PATIENT CARE PER NURSING PROTOCOL Performed By: #### L 501.080 ####[facility] [address] [place], [address] FINGERSTICK GLU 281 mg/dL High 74-106 [facility] Comment on above: Result Comment: ADITI ESCOBEDO OF PATIENT CARE PER NURSING PROTOCOL Performed By: #### L 501.080 ####[facility] [address] [place], [address] CBC W/Diff, Automatedon 06-0 6-5 Absolute Lymph 1.34 X10 3/uL Normal 0.83-4.51 [facility] Comment on above: Performed By: #### L 100.0100 ####[facility] [address] [place], [address] Absolute Neut 12.3 X10 3/uL High 2.0-7.7 [facility] Comment on above: Performed By: #### L 100.0100 ####[facility] [address] [place], [address] Basophils/100 WBC (Bld) 0.1 % Normal 0-1 [facility] Comment on above: Performed By: #### L 100.0100 ####[facility] [address] [place], [address] Eosinophils/100 WBC (Bld) 0.0 % Normal 0-5 [facility] Comment on above: Performed By: #### L 100.0100 ####[facility] [address] [place], [address] Erythrocyte distribution width (RBC) [Ratio] 13.8 % Normal 11.6-14.6 [facility] Comment on above: Performed By: #### L 100.0100 ####[facility] [address] [place], [address] Hematocrit (Bld) [Volume fraction] 23.6 % Low 40-54 [facility] Comment on above: Performed By: #### L 100.0100 ####[facility] [address] [place], [address] Hemoglobin (Bld) [Mass/Vol] 7.9 g/dL Low 13.0-16.5 [facility] Comment on above: Performed By: #### L 100.0100 ####[facility] [address] [place], [address] IG% 0.500 Normal 0.0-0.9 [facility] Comment on above: Result Comment: IG% - Immature Granulocytes (promyelocytes, myelocytes andmetamyelocytes) > 1% indicates that a LEFT SHIFT is Present. Performed By: #### L 100.0100 ####[facility] [address] [place], [address] Lymphocytes/100 WBC (Bld) 9.1 % Low 19-41 [facility] Comment on above: Performed By: #### L 100.0100 ####[facility] [address] [place], [address] MCH (RBC) [Entitic mass] 30.7 pg Normal 27.0-32.0 [facility] Comment on above: Performed By: #### L 100.0100 ####[facility] [address] [place], [address] MCHC (RBC) [Mass/Vol] 33.5 g/dL Normal 32-36 [facility] Comment on above: Performed By: #### L 100.0100 ####[facility] [address] [place], [address] MCV (RBC) [Entitic vol] 91.8 fL Normal 80-94 [facility] Comment on above: Performed By: #### L 100.0100 ####[facility] [address] [place], [address] Monocytes/100 WBC (Bld) 7.0 % Normal 0-10 [facility] Comment on above: Performed By: #### L 100.0100 ####[facility] [address] [place], [address] Neutrophils/100 WBC (Bld) 83.3 % High 47-70 [facility] Comment on above: Performed By: #### L 100.0100 ####[facility] [address] [place], [address] Nucleated RBC (Bld) [#/Vol] 0 10*3/uL Normal 0-5 [facility] Comment on above: Performed By: #### L 100.0100 ####[facility] [address] [place], [address] Platelet mean volume (Bld) [Entitic vol] 11.9 fL Normal 6.2-12.0 [facility] Comment on above: Performed By: #### L 100.0100 ####[facility] [address] [place], [address] Platelets (Bld) [#/Vol] 222 10*3/uL Normal 150-450 [facility] Comment on above: Performed By: #### L 100.0100 ####[facility] [address] [place], [address] RBC (Bld) [#/Vol] 2.57 10*6/uL Low 4.6-6.2 [facility] Comment on above: Performed By: #### L 100.0100 ####[facility] [address] [place], [address] RDW SD 46.2 fl High 35.1-43.9 [facility] Comment on above: Performed By: #### L 100.0100 ####[facility] [address] [place], [address] WBC (Bld) [#/Vol] 14.8 10*3/uL High 4.4-11.0 [facility] Comment on above: Performed By: #### L 100.0100 ####[facility] [address] [place], [place], [address] Magnesiumon 04-06-2025 Magnesium [Mass/Vol] 2.8 mg/dL High 1.5-2.2 [facility] Comment on above: Performed By: #### L 501.5200, L501.2300 ####[facility] [address] [place], [address] Magnesium measurement (mass/ volume)Ordered By: Barbie Martin on 04-06-2025 Magnesium (Unsp spec) [Mass/Vol] 2.8 mg/dL High 1.5-2.2 [facility] Phosphoruson 04-06-2025 Phosphate [Mass/Vol] 7.1 mg/dL High 2.7-4.5 [facility] Comment on above: Performed By: #### L 501.5200, L501.2300 ####[facility] [address] [place], [place], [address] Serum classic neutrophil cyt oplasmic antibody assay (units/volume)Ordered By: Denisha Thompson on 04-06-2025 Neutrophil cytoplasmic Ab.classic Qn (S) <1:20 titer Neg:<1:20 [facility] Serum glomerular basement me mbrane antibody assay (units/volume)Ordered By: Denisha Thompson on 04-06-2025 Glomerular basement membrane Ab Qn (S) < 0.2 units 0.0-0.9 [facility] Comment on above: Performed at: [address] [id number] Director: Mignon Taylor MD, Phone: [phone] Serum perinuclear neutrophil cytoplasmic antibody titer by immunofluorescenceOrdered By: Denisha Thompson on 04-06-2025 Neutrophil cytoplasmic Ab.perinuclear IF (S) [Titer] <1:20 titer Neg:<1:20 [facility] Comment on above: The presence of posi tive fluorescence exhibiting P-ANCA orC-ANCA patterns alone is not specific for the diagnosis ofWegener's Granulomatosis (WG) or microscopic polyangiitis.Decisions about treatment should not be based solely onANCA IFA results. The [employer] Consensusrecommends follow up testing of positive sera with both MN-3 and MPO-ANCA enzyme immunoassays. As many as 5% serumsamples are positive only by EIA. Ref. AM J Clin Lioevo5517;111:507-513. 12 Lead EKGon 04-05-2025 12 Lead EKG Normal [facility] Basic Metabolic Profile (BMP )on 04-05-2025 BUN/CRE 20.8 RATIO High 10-20 [facility] Comment on above: Performed By: #### L 500.2500 ####[facility] [address] [place] [address] Calcium [Mass/Vol] 8.9 mg/dL Normal 7.6-11.0 [facility] Comment on above: Performed By: #### L 500.2500 ####[facility] [address] [place] [id number] Chloride [Moles/Vol] 102 mmol/L Normal 98-108 [facility] Comment on above: Performed By: #### L 500.2500 ####[facility] [address] [facility] [address] CO2 [Moles/Vol] 15.6 mmol/L Low 21.0-32.0 [facility] Comment on above: Performed By: #### L 500.2500 ####[facility] [address] [place], [address] Creatinine [Mass/Vol] 4.77 mg/dL High 0.70-1.20 [facility] Comment on above: Performed By: #### L 500.2500 ####[facility] [address] [place] [id number] ECRCL 10.67 ml/min Low 50-250 [facility] Comment on above: Performed By: #### L 500.2500 ####[facility] [address] [place], [address] GAP 19 High 5-15 [facility] Comment on above: Performed By: #### L 500.2500 ####[facility] [address] [place], [address] GFR/1.73 sq M.predicted among non-blacks MDRD (S/P/Bld) [Vol rate/Area] 12 mL/min/{1.73_m2} Low >60 [facility] Comment on above: Result Comment: mL/m in/1.73m2 CKD-EPI Creatinine Equation (2020) Performed By: #### L 500.2500 ####[facility] [address] [place], [address] Glucose [Mass/Vol] 205 mg/dL High 70-99 [facility] Comment on above: Performed By: #### L 500.2500 ####[facility] [address] [place], [address] Potassium [Moles/Vol] 5.7 mmol/L High 3.3-5.1 [facility] Comment on above: Result Comment: Hemo lysis present, Results??could be affected.?? Performed By: #### L 500.2500 ####[facility] [address] [place], [address] Sodium [Moles/Vol] 137 mmol/L Normal 133-145 [facility] Comment on above: Performed By: #### L 500.2500 ####[facility] [address] [place], [address] Urea nitrogen [Mass/Vol] 99 mg/dL High 4-19 [facility] Comment on above: Performed By: #### L 500.2500 ####[facility] [address] [place], [address] BUN/CRE 20.5 RATIO High 10-20 [facility] Comment on above: Performed By: #### L 500.2500 ####[facility] [address] [place], [address] Calcium [Mass/Vol] 8.1 mg/dL Normal 7.6-11.0 [facility] Comment on above: Performed By: #### L 500.2500 ####[facility] [address] [place], [address] Chloride [Moles/Vol] 102 mmol/L Normal 98-108 [facility] Comment on above: Performed By: #### L 500.2500 ####[facility] [address] [place], [address] CO2 [Moles/Vol] 15.8 mmol/L Low 21.0-32.0 [facility] Comment on above: Performed By: #### L 500.2500 ####[facility] [address] [place], [address] Creatinine [Mass/Vol] 4.68 mg/dL High 0.70-1.20 [facility] Comment on above: Performed By: #### L 500.2500 ####[facility] [address] [place], [address] ECRCL 10.87 ml/min Low 50-250 [facility] Comment on above: Performed By: #### L 500.2500 ####[facility] [address] [place], [address] GAP 18 High 5-15 [facility] Comment on above: Performed By: #### L 500.2500 ####[facility] [address] [place], [address] GFR/1.73 sq M.predicted among non-blacks MDRD (S/P/Bld) [Vol rate/Area] 12 mL/min/{1.73_m2} Low >60 [facility] Comment on above: Result Comment: mL/m in/1.73m2 CKD-EPI Creatinine Equation (2020) Performed By: #### L 500.2500 ####[facility] [address] [place], [address] Glucose [Mass/Vol] 223 mg/dL High 70-99 [facility] Comment on above: Performed By: #### L 500.2500 ####[facility] [address] [place], [address] Potassium [Moles/Vol] 6.3 mmol/L Invalid Interpretation Code 3.3-5.1 [facility] Comment on above: Result Comment: Crit ical Result(s) Called to: STANTON PARRA (U) by:RONEN??Results read back by same. Performed By: #### L 500.2500 ####[facility] [address] [place], [address] Sodium [Moles/Vol] 136 mmol/L Normal 133-145 [facility] Comment on above: Performed By: #### L 500.2500 ####[facility] [address] [place], [address] Urea nitrogen [Mass/Vol] 96 mg/dL High 4-19 [facility] Comment on above: Performed By: #### L 500.2500 ####[facility] [address] [place], [address] Bedside Glucoseon 04-05-2025 FINGERSTICK GLU 282 mg/dL High 74-106 [facility] Comment on above: Result Comment: ADITI GEMENT OF PATIENT CARE PER NURSING PROTOCOL Performed By: #### L 501.080 ####[facility] [address] [place], [address] FINGERSTICK GLU 165 mg/dL High 74-106 [facility] Comment on above: Result Comment: ADITI GEMENT OF PATIENT CARE PER NURSING PROTOCOL Performed By: #### L 501.080 ####[facility] [address] [place], [address] FINGERSTICK GLU 239 mg/dL High 74-106 [facility] Comment on above: Result Comment: ADITI GEMENT OF PATIENT CARE PER NURSING PROTOCOL Performed By: #### L 501.080 ####[facility] [address] [place], [address] FINGERSTICK GLU 226 mg/dL High 74-106 [facility] Comment on above: Result Comment: ADITI GEMENT OF PATIENT CARE PER NURSING PROTOCOL Performed By: #### L 501.080 ####[facility] [address] [place], [address] FINGERSTICK GLU 263 mg/dL High 74-106 [facility] Comment on above: Result Comment: ADITI GEMENT OF PATIENT CARE PER NURSING PROTOCOL Performed By: #### L 501.080 ####[facility] [address] [place], [address] FINGERSTICK GLU 253 mg/dL High -106 [facility] Comment on above: Result Comment: ADITI GEMENT OF PATIENT CARE PER NURSING PROTOCOL Performed By: #### L 501.080 ####[facility] [address] [place], [address] Bilirubin Test strip Ql (U)O rdered By: Denisha Thompson on 04-05-2025 Bilirubin Ql (U) 1 mg/dL High Negative [facility] Comment on above: COLOR OF URINE MAY A FFECT DIPSTICK RESULTS. Blood manual differential co mment interpretation (narrative result)Ordered By: Grace Arnold on 04-05-2025 Manual differential comment Mumtaz (Bld) [Interp] SCANNED [facility] CBC W/Diff, Automatedon SMEAR COMMENT SCANNED Normal [facility] Comment on above: Performed By: #### L 100.0100 ####[facility] [address] [place], [address] CXR for Line Placementon CXR for Line Placement Normal [facility] Consultation - Surgicalon Consultation - Surgical Normal W [facility] Ketones Test strip Ql (U)Ord ered By: Denisha Thompson on 04-05-2025 Ketones Ql (U) Negative Negative [facility] L499.0042on 04-05-2025 Trop T High Sen 2263 ng/L Invalid Interpretation Code <=22 [facility] Comment on above: Result Comment: Crit ical Result(s) Called at: 0040 by: BJ??Results read back by same. Performed By: #### L 499.0042 ####[facility] [address] [place], [place], [id number] L499.0043on 04-05-2025 Trop T High Sen 2425 ng/L Invalid Interpretation Code <=22 [facility] Comment on above: Result Comment: Crit ical Result(s) Called at: 0336 by:??DASIA ALICIA Results read back by same. Performed By: #### L 499.0043 ####[facility] [address] [place], [place], [id number] Microscopic analysis of urin e for red blood cells (RBC)Ordered By: Denisha Thompson on 04-05-2025 Microscopic analysis of urine for red blood cells (RBC) > 100 SEEN /hpf 0-5 [facility] Mucus LM Ql (Urine sed)Order ed By: Denisha Thompson on 04-05-2025 Mucus Ql (Urine sed) 0 SEEN /hpf [facility] Nitrite Test strip Ql (U)Ord ered By: Denisha Thompson on 04-05-2025 Nitrite Ql (U) Negative Negative [facility] Operative Reporton Operative Report Normal [facility] Protein Test strip Ql (U)Ord ered By: Denisha Thompson on 04-05-2025 Protein Ql (U) 100 mg/dl High Negative [facility] Squamous epithelial cells de tection in urine sediment by light microscopyOrdered By: Denisha Thompson on 04-05-2025 Epithelial cells.squamous LM Ql (Urine sed) 0 SEEN /hpf 0-5 [facility] Troponin T.cardiac [Mass/vol ume] in Serum or Plasma by High sensitivity methodOrdered By: Breezy Campbell on 04-05-2025 Troponin T.cardiac High sensitivity method [Mass/Vol] 2425 ng/L High <22 [facility] Comment on above: Critical Result(s) C alled at: 0336 by: DASIA MOYA TO ANA ALICIA Results read back by same. Urinalysis, Completeon 04-05 WBC 5-10 SEEN Normal 0-5 [facility] Comment on above: Order Comment: HATTIE TER SPECIMEN Performed By: #### L 400.0001 ####[facility] [address] [place], [address] RBC > 100 SEEN Normal 0-5 [facility] Comment on above: Order Comment: HATTIE TER SPECIMEN Performed By: #### L 400.0001 ####[facility] [address] [place], [address] BACTERIA 0 SEEN Normal None Seen [facility] Comment on above: Order Comment: HATTIE TER SPECIMEN Performed By: #### L 400.0001 ####[facility] [address] [place], [address] EPI,SQUAMOUS 0 SEEN Normal 0-5 [facility] Comment on above: Order Comment: HATTIE TER SPECIMEN Performed By: #### L 400.0001 ####[facility] [address] [place], [address] Mucus Ql (Urine sed) [address] [facility] Comment on above: Order Comment: HATTIE TER SPECIMEN Performed By: #### L 400.0001 ####[facility] [address] [place], [address] Urine clarityOrdered By: Zelalem Thompson on 04-05-2025 Clarity (U) Sl. Cloudy Clear [facility] Urine color determinationOrd ered By: Denisha Thompson on 04-05-2025 Color (U) Yellow Yellow [facility] Urine glucose detectionOrder ed By: Denisha Thompson on 04-05-2025 Glucose Ql (U) Normal mg/dl Normal [facility] Urine leukocyte esterase det ection by dipstickOrdered By: Denisha Thompson on 04-05-2025 Leukocyte esterase Test strip Ql (U) 500 /ul High Negative [facility] Urine pHOrdered By: Almita Thompson on 04-05-2025 pH (U) 5.0 [pH] 5.0 - 8.0 [facility] Urine sediment bacteria coun t by microscopy (number/high power field)Ordered By: Denisha Thompson on 04-05-2025 Bacteria LM.HPF (Urine sed) [#/Area] 0 /[HPF] None Seen [facility] Urine specific gravity measu rementOrdered By: Denisha Thompson on 04-05-2025 Specific gravity (U) [Rel density] 1.020 1.002-1.030 [facility] Urine urobilinogen measureme ntOrdered By: Denisha Thompson on 04-05-2025 Urobilinogen Ql (U) Normal mg/dl Normal [facility] White blood cell countOrdere d By: Denisha Thompson on 04-05-2025 White blood cell count 5-10 SEEN /hpf 0-5 [facility] 12 Lead EKGon 04-04-2025 12 Lead EKG Normal [facility] 12 Lead EKG Normal [facility] 12 Lead EKG Normal [facility] Basic Metabolic Profile (BMP )on 04-04-2025 BUN Normal 4-19 [facility] Comment on above: Result Comment: CANC EL PER DEVEROAUX Performed By: #### L 500.2500 ####[facility] [address] [place], [place], [address] BUN/CRE Normal 10-20 [facility] Comment on above: Result Comment: CANC EL PER DEVEROAUX Performed By: #### L 500.2500 ####[facility] [address] [place], [address] Calcium Normal 7.6-11.0 [facility] Comment on above: Result Comment: CANC EL PER DEVEROAUX Performed By: #### L 500.2500 ####[facility] [address] [place], [address] CL Normal 98-108 [facility] Comment on above: Result Comment: CANC EL PER DEVEROAUX Performed By: #### L 500.2500 ####[facility] [address] [place], [address] CO2 Normal 21.0-32.0 [facility] Comment on above: Result Comment: CANC EL PER DEVEROAUX Performed By: #### L 500.2500 ####[facility] [address] [place], [address] CREAT,SERUM Normal 0.70-1.20 [facility] Comment on above: Result Comment: CANC EL PER DEVEROAUX Performed By: #### L 500.2500 ####[facility] [address] [place], [address] eGFR Normal >60 [facility] Comment on above: Result Comment: CANC EL PER DEVEROAUX Performed By: #### L 500.2500 ####[facility] [address] [place], [address] GAP Normal 5-15 [facility] Comment on above: Result Comment: CANC EL PER DEVEROAUX Performed By: #### L 500.2500 ####[facility] [address] [place], [address] GLU Normal 70-99 [facility] Comment on above: Result Comment: CANC EL PER DEVEROAUX Performed By: #### L 500.2500 ####[facility] [address] [place], [address] Potassium Normal 3.3-5.1 [facility] Comment on above: Result Comment: CANC EL PER DEVEROAUX Performed By: #### L 500.2500 ####[facility] [address] [place], [address] Basic Metabolic Profile (BMP) Normal 133-145 [facility] Comment on above: Result Comment: CANC EL PER DEVEROAUX Performed By: #### L 500.2500 ####[facility] [address] [place], [address] BUN/CRE 20.5 RATIO High 10-20 [facility] Comment on above: Performed By: #### L 500.2500 ####[facility] [address] [place], [address] Calcium [Mass/Vol] 8.6 mg/dL Normal 7.6-11.0 [facility] Comment on above: Performed By: #### L 500.2500 ####[facility] [address] [place], [address] Chloride [Moles/Vol] 101 mmol/L Normal 98-108 [facility] Comment on above: Performed By: #### L 500.2500 ####[facility] [address] [place], [address] CO2 [Moles/Vol] 17.2 mmol/L Low 21.0-32.0 [facility] Comment on above: Performed By: #### L 500.2500 ####[facility] [address] [place], [address] Creatinine [Mass/Vol] 3.74 mg/dL High 0.70-1.20 [facility] Comment on above: Performed By: #### L 500.2500 ####[facility] [address] [place], [address] ECRCL 13.61 ml/min Low 50-250 [facility] Comment on above: Performed By: #### L 500.2500 ####[facility] [address] [place], [address] GAP 17 High 5-15 [facility] Comment on above: Performed By: #### L 500.2500 ####[facility] [address] [place], [address] GFR/1.73 sq M.predicted among non-blacks MDRD (S/P/Bld) [Vol rate/Area] 16 mL/min/{1.73_m2} Low >60 [facility] Comment on above: Result Comment: mL/m in/1.73m2 CKD-EPI Creatinine Equation (2020) Performed By: #### L 500.2500 ####[facility] [address] [place], [address] Glucose [Mass/Vol] 226 mg/dL High 70-99 [facility] Comment on above: Performed By: #### L 500.2500 ####[facility] [address] [place], [address] Potassium [Moles/Vol] 5.4 mmol/L High 3.3-5.1 [facility] Comment on above: Performed By: #### L 500.2500 ####[facility] [address] [place], [address] Sodium [Moles/Vol] 134 mmol/L Normal 133-145 [facility] Comment on above: Performed By: #### L 500.2500 ####[facility] [address] [place], [address] Urea nitrogen [Mass/Vol] 77 mg/dL High 4-19 [facility] Comment on above: Performed By: #### L 500.2500 ####[facility] [address] [place], [address] BUN/CRE 21.0 RATIO High 10-20 [facility] Comment on above: Performed By: #### L 500.2500 ####[facility] [address] [place], [address] Calcium [Mass/Vol] 8.7 mg/dL Normal 7.6-11.0 [facility] Comment on above: Performed By: #### L 500.2500 ####[facility] [address] [place], [address] Chloride [Moles/Vol] 104 mmol/L Normal 98-108 [facility] Comment on above: Performed By: #### L 500.2500 ####[facility] [address] [place], [address] CO2 [Moles/Vol] 17.5 mmol/L Low 21.0-32.0 [facility] Comment on above: Performed By: #### L 500.2500 ####[facility] [address] [place], [address] Creatinine [Mass/Vol] 3.34 mg/dL High 0.70-1.20 [facility] Comment on above: Performed By: #### L 500.2500 ####[facility] [address] [place], [address] ECRCL 15.24 ml/min Low 50-250 [facility] Comment on above: Performed By: #### L 500.2500 ####[facility] [address] [place], [address] GAP 15 Normal 5-15 [facility] Comment on above: Performed By: #### L 500.2500 ####[facility] [address] [place], [address] GFR/1.73 sq M.predicted among non-blacks MDRD (S/P/Bld) [Vol rate/Area] 18 mL/min/{1.73_m2} Low >60 [facility] Comment on above: Result Comment: mL/m in/1.73m2 CKD-EPI Creatinine Equation (2021) Performed By: #### L 500.2500 ####[facility] [address] [place], [address] Glucose [Mass/Vol] 208 mg/dL High 70-99 [facility] Comment on above: Performed By: #### L 500.2500 ####[facility] [address] [place], [address] Potassium [Moles/Vol] 5.0 mmol/L Normal 3.3-5.1 [facility] Comment on above: Performed By: #### L 500.2500 ####[facility] [address] [place], [address] Sodium [Moles/Vol] 137 mmol/L Normal 133-145 [facility] Comment on above: Performed By: #### L 500.2500 ####[facility] [address] [place], [address] Urea nitrogen [Mass/Vol] 70 mg/dL High 4-19 [facility] Comment on above: Performed By: #### L 500.2500 ####[facility] [address] [place], [address] BUN/CRE 21.1 RATIO High 10-20 [facility] Comment on above: Performed By: #### L 500.2500 ####[facility] [address] [place], [address] Calcium [Mass/Vol] 8.6 mg/dL Normal 7.6-11.0 [facility] Comment on above: Performed By: #### L 500.2500 ####[facility] [address] [place], [address] Chloride [Moles/Vol] 103 mmol/L Normal 98-108 [facility] Comment on above: Performed By: #### L 500.2500 ####[facility] [address] [place], [address] CO2 [Moles/Vol] 17.8 mmol/L Low 21.0-32.0 [facility] Comment on above: Performed By: #### L 500.2500 ####[facility] [address] [place], [address] Creatinine [Mass/Vol] 3.26 mg/dL High 0.70-1.20 [facility] Comment on above: Performed By: #### L 500.2500 ####[facility] [address] [place], [address] ECRCL 15.61 ml/min Low 50-250 [facility] Comment on above: Performed By: #### L 500.2500 ####[facility] [address] [place], [address] GAP 15 Normal 5-15 [facility] Comment on above: Performed By: #### L 500.2500 ####[facility] [address] [place], [address] GFR/1.73 sq M.predicted among non-blacks MDRD (S/P/Bld) [Vol rate/Area] 18 mL/min/{1.73_m2} Low >60 [facility] Comment on above: Result Comment: mL/m in/1.73m2 CKD-EPI Creatinine Equation (2020) Performed By: #### L 500.2500 ####[facility] [address] [place], [address] Glucose [Mass/Vol] 203 mg/dL High 70-99 [facility] Comment on above: Performed By: #### L 500.2500 ####[facility] [address] [place], [address] Potassium [Moles/Vol] 4.6 mmol/L Normal 3.3-5.1 [facility] Comment on above: Performed By: #### L 500.2500 ####[facility] [address] [place], [address] Sodium [Moles/Vol] 136 mmol/L Normal 133-145 [facility] Comment on above: Performed By: #### L 500.2500 ####[facility] [address] [place], [address] Urea nitrogen [Mass/Vol] 69 mg/dL High 4-19 [facility] Comment on above: Performed By: #### L 500.2500 ####[facility] [address] [place], [address] Bedside Glucoseon 04-04-2025 FINGERSTICK GLU 355 mg/dL High 74-106 [facility] Comment on above: Result Comment: ADITI GEMENT OF PATIENT CARE PER NURSING PROTOCOL Performed By: #### L 501.080 ####[facility] [address] [place], [address] FINGERSTICK GLU 307 mg/dL High 74-106 [facility] Comment on above: Result Comment: ADITI GEMENT OF PATIENT CARE PER NURSING PROTOCOL Performed By: #### L 501.080 ####[facility] [address] [place], [address] FINGERSTICK GLU 209 mg/dL High 74-106 [facility] Comment on above: Result Comment: ADITI GEMENT OF PATIENT CARE PER NURSING PROTOCOL Performed By: #### L 501.080 ####[facility] [address] [place], [address] FINGERSTICK GLU 164 mg/dL High 74-106 [facility] Comment on above: Result Comment: ADITI GEMENT OF PATIENT CARE PER NURSING PROTOCOL Performed By: #### L 501.080 ####[facility] [address] [place], [address] FINGERSTICK GLU 183 mg/dL High 74-106 [facility] Comment on above: Result Comment: ADITI GEMENT OF PATIENT CARE PER NURSING PROTOCOL Performed By: #### L 501.080 ####[facility] [address] [place], [address] FINGERSTICK GLU 178 mg/dL High 74-106 [facility] Comment on above: Result Comment: ADITI GEMENT OF PATIENT CARE PER NURSING PROTOCOL Performed By: #### L 501.080 ####[facility] [address] [place], [address] FINGERSTICK GLU 229 mg/dL High 74-106 [facility] Comment on above: Result Comment: ADITI GEMENT OF PATIENT CARE PER NURSING PROTOCOL Performed By: #### L 501.080 ####[facility] [address] [place], [address] FINGERSTICK GLU 174 mg/dL High 74-106 [facility] Comment on above: Result Comment: ADITI GEMENT OF PATIENT CARE PER NURSING PROTOCOL Performed By: #### L 501.080 ####[facility] [address] [place], [address] FINGERSTICK GLU 366 mg/dL High 74-106 [facility] Comment on above: Result Comment: ADITI GEMENT OF PATIENT CARE PER NURSING PROTOCOL Performed By: #### L 501.080 ####[facility] [address] [place], [address] FINGERSTICK GLU 250 mg/dL High 74-106 [facility] Comment on above: Result Comment: ADITI GEMENT OF PATIENT CARE PER NURSING PROTOCOL Performed By: #### L 501.080 ####[facility] [address] [place], [address] FINGERSTICK GLU 284 mg/dL High 74-106 [facility] Comment on above: Result Comment: ADITI GEMENT OF PATIENT CARE PER NURSING PROTOCOL Performed By: #### L 501.080 ####[facility] [address] [place], [address] FINGERSTICK GLU 261 mg/dL High [address] [facility] Comment on above: Result Comment: ADITI GEMENT OF PATIENT CARE PER NURSING PROTOCOL Performed By: #### L 501.080 ####[facility] [address] [place], [address] FINGERSTICK GLU 317 mg/dL High 74-106 [facility] Comment on above: Result Comment: ADITI GEMENT OF PATIENT CARE PER NURSING PROTOCOL Performed By: #### L 501.080 ####[facility] [address] [place], [address] FINGERSTICK GLU 235 mg/dL High 74-106 [facility] Comment on above: Result Comment: ADITI GEMENT OF PATIENT CARE PER NURSING PROTOCOL Performed By: #### L 501.080 ####[facility] [address] [place], [address] CBC W/Diff, Automatedon 06-0 4-5 Absolute Lymph 1.08 X10 3/uL Normal 0.83-4.51 [facility] Comment on above: Performed By: #### L 100.0100 ####[facility] [address] [place], [address] Absolute Neut 19.9 X10 3/uL High 2.0-7.7 [facility] Comment on above: Performed By: #### L 100.0100 ####[facility] [address] [place], [address] Basophils/100 WBC (Bld) 0.1 % Normal 0-1 [facility] Comment on above: Performed By: #### L 100.0100 ####[facility] [address] [place], [address] Eosinophils/100 WBC (Bld) 0.0 % Normal 0-5 [facility] Comment on above: Performed By: #### L 100.0100 ####[facility] [address] [place], [address] Erythrocyte distribution width (RBC) [Ratio] 13.6 % Normal 11.6-14.6 [facility] Comment on above: Performed By: #### L 100.0100 ####[facility] [address] [place], [address] Hematocrit (Bld) [Volume fraction] 22.8 % Low 40-54 [facility] Comment on above: Performed By: #### L 100.0100 ####[facility] [address] [place], [address] Hemoglobin (Bld) [Mass/Vol] 7.4 g/dL Low 13.0-16.5 [facility] Comment on above: Performed By: #### L 100.0100 ####[facility] [address] [place], [address] IG% 0.600 Normal 0.0-0.9 [facility] Comment on above: Result Comment: IG% - Immature Granulocytes (promyelocytes, myelocytes andmetamyelocytes) > 1% indicates that a LEFT SHIFT is Present. Performed By: #### L 100.0100 ####[facility] [address] [place], [address] Lymphocytes/100 WBC (Bld) 4.9 % Low 19-41 [facility] Comment on above: Performed By: #### L 100.0100 ####[facility] [address] [place], [address] MCH (RBC) [Entitic mass] 30.0 pg Normal 27.0-32.0 [facility] Comment on above: Performed By: #### L 100.0100 ####[facility] [address] [place], [address] MCHC (RBC) [Mass/Vol] 32.5 g/dL Normal 32-36 [facility] Comment on above: Performed By: #### L 100.0100 ####[facility] [address] [place], [address] MCV (RBC) [Entitic vol] 92.3 fL Normal 80-94 [facility] Comment on above: Performed By: #### L 100.0100 ####[facility] [address] [place], [address] Monocytes/100 WBC (Bld) 4.0 % Normal 0-10 [facility] Comment on above: Performed By: #### L 100.0100 ####[facility] [address] [place], [address] Neutrophils/100 WBC (Bld) 90.4 % High 47-70 [facility] Comment on above: Performed By: #### L 100.0100 ####[facility] [address] [place], [address] Nucleated RBC (Bld) [#/Vol] 0 10*3/uL Normal 0-5 [facility] Comment on above: Performed By: #### L 100.0100 ####[facility] [address] [place], [address] Platelet mean volume (Bld) [Entitic vol] 11.4 fL Normal 6.2-12.0 [facility] Comment on above: Performed By: #### L 100.0100 ####[facility] [address] [place], [address] Platelets (Bld) [#/Vol] 230 10*3/uL Normal 150-450 [facility] Comment on above: Performed By: #### L 100.0100 ####[facility] [address] [place], [address] RBC (Bld) [#/Vol] 2.47 10*6/uL Low 4.6-6.2 [facility] Comment on above: Performed By: #### L 100.0100 ####[facility] [address] [place], [address] RDW SD 45.9 fl High 35.1-43.9 [facility] Comment on above: Performed By: #### L 100.0100 ####[facility] [address] [place], [address] WBC (Bld) [#/Vol] 22.0 10*3/uL High 4.4-11.0 [facility] Comment on above: Performed By: #### L 100.0100 ####[facility] [address] [place], [address] Consultation - Nephrologyon 04-04-2025 Consultation - Nephrology Normal [facility] Creatinine, Urineon 04-04-20 25 URINE CREAT 138.00 mg/dL Normal 39.00-259.00 [facility] Comment on above: Performed By: #### L 502.0715, L502.0300 ####[facility] [address] [place], [address] Kidney and Bladderon 025 Kidney and Bladder Normal [facility] L501.4021on 04-04-2025 Trop T High Sen 2204 ng/L Invalid Interpretation Code <=22 [facility] Comment on above: Result Comment: Crit ical Result(s) Called at: 223 by: JEANNIE SHARMA Results read back by same. Performed By: #### L 501.4021 ####[facility] [address] [place], [address] Troponin T.cardiac [Mass/vol ume] in Serum or Plasma by High sensitivity methodOrdered By: Breezy Campbell on 04-04-2025 Troponin T.cardiac High sensitivity method [Mass/Vol] 2204 ng/L High <22 [facility] Comment on above: Delta: [phone] on [phone] Result(s) Called at: 2232 by: JEANNIE SHARMA Results read back by same. Troponin T.cardiac High sensitivity method [Mass/Vol] 2263 ng/L High <22 [facility] Comment on above: Critical Result(s) C alled at: 0040 by: JENNIFER SHARMA Results read back by same. Urea Nitrogen, Urineon 04-04 URINE UREA 406 mg/dL Normal NO RANGE EST. [facility] Comment on above: Performed By: #### L 502.0715, L502.0300 ####[facility] [address] [place], [place], [address] Urine Cultureon 04-04-2025 URC Culture exhibits no growth. Normal [facility] Comment on above: Performed By: #### M 100.2200 ####[facility] [address] [place], [place], [address] Urine creatinine measurement (mass/volume)Ordered By: Grace Arnold on 04-04-2025 Creatinine (U) [Mass/Vol] 138.00 mg/dL 39.00-25 9.00 [facility] 12 Lead EKGon 04-03-2025 12 Lead EKG Normal [facility] Absolute lymphocyte countOrd ered By: John Brandon on 04-03-2025 Lymphocytes Auto (Unsp spec) [#/Vol] 2.12 10*3/uL 0.83-4.51 [facility] Absolute neutrophil countOrd ered By: John Brandon on 04-03-2025 Neutrophils (Bld) [#/Vol] 12.0 10*3/uL High 2.0-7.7 [facility] Activated partial thrombopla stin time (aPTT) in platelet poor plasma by coagulation aOrdered By: Grace Arnold on 04-03-2025 aPTT Coag (PPP) [Time] 212.0 s High 24.1-36.2 [facility] Comment on above: CRITICAL VALUE GRIMM D TO RElizabet VIZZO04/03/25 1243 Ness Huang.RESULTS READ BACK BY SAME. Activated partial thrombopla stin time (aPTT) in platelet poor plasma by coagulation aOrdered By: Dyana Hwang on 04-03-2025 aPTT Coag (PPP) [Time] 37.3 s High 24.1-36.2 [facility] Anion gap in Serum or Plasma Ordered By: John Brandon on 04-03-2025 Anion gap [Moles/Vol] 14 mmol/L 5-15 [facility] Assessment of wrist artery p atency prior to arterial punctureOrdered By: Dyana Hwang on 04-03-2025 Arterial patency Wrist artery --pre arterial puncture Positive [facility] Automated lymphocyte count a s percentage of total leukocytesOrdered By: John Brandon on 04-03-2025 Lymphocytes/100 WBC Auto (Unsp spec) 13.5 % Low 19-41 [facility] BUN/creatinine ratioOrdered By: John Brandon on 04-03-2025 Urea nitrogen/Creatinine [Mass ratio] 22.3 mg/mg High 10-20 [facility] Basic Metabolic Profile (BMP )on 04-03-2025 BUN/CRE 21.7 RATIO High 10-20 [facility] Comment on above: Performed By: #### L 500.2500 ####[facility] [address] [place], [address] Calcium [Mass/Vol] 8.5 mg/dL Normal 7.6-11.0 [facility] Comment on above: Performed By: #### L 500.2500 ####[facility] [address] [place], [address] Chloride [Moles/Vol] 102 mmol/L Normal 98-108 [facility] Comment on above: Performed By: #### L 500.2500 ####[facility] [address] [place], [address] CO2 [Moles/Vol] 17.3 mmol/L Low 21.0-32.0 [facility] Comment on above: Performed By: #### L 500.2500 ####[facility] [address] [place], [address] Creatinine [Mass/Vol] 3.02 mg/dL High 0.70-1.20 [facility] Comment on above: Performed By: #### L 500.2500 ####[facility] [address] [place], [address] ECRCL 16.69 ml/min Low 50-250 [facility] Comment on above: Performed By: #### L 500.2500 ####[facility] [address] [place], [address] GAP 16 High 5-15 [facility] Comment on above: Performed By: #### L 500.2500 ####[facility] [address] [place], [address] GFR/1.73 sq M.predicted among non-blacks MDRD (S/P/Bld) [Vol rate/Area] 20 mL/min/{1.73_m2} Low >60 [facility] Comment on above: Result Comment: mL/m in/1.73m2 CKD-EPI Creatinine Equation (2020) Performed By: #### L 500.2500 ####[facility] [address] [place], [address] Glucose [Mass/Vol] 275 mg/dL High 70-99 [facility] Comment on above: Performed By: #### L 500.2500 ####[facility] [address] [place], [address] Potassium [Moles/Vol] 4.5 mmol/L Normal 3.3-5.1 [facility] Comment on above: Performed By: #### L 500.2500 ####[facility] [address] [place], [address] Sodium [Moles/Vol] 136 mmol/L Normal 133-145 [facility] Comment on above: Performed By: #### L 500.2500 ####[facility] [address] [place], [address] Urea nitrogen [Mass/Vol] 66 mg/dL High 4-19 [facility] Comment on above: Performed By: #### L 500.2500 ####[facility] [address] [place], [address] BUN/CRE 22.9 RATIO High 10-20 [facility] Comment on above: Performed By: #### L 500.2500 ####[facility] [address] [place], [address] Calcium [Mass/Vol] 9.0 mg/dL Normal 7.6-11.0 [facility] Comment on above: Performed By: #### L 500.2500 ####[facility] [address] [place], [address] Chloride [Moles/Vol] 100 mmol/L Normal 98-108 [facility] Comment on above: Performed By: #### L 500.2500 ####[facility] [address] [place], [address] CO2 [Moles/Vol] 16.9 mmol/L Low 21.0-32.0 [facility] Comment on above: Performed By: #### L 500.2500 ####[facility] [address] [place], [address] Creatinine [Mass/Vol] 2.73 mg/dL High 0.70-1.20 [facility] Comment on above: Performed By: #### L 500.2500 ####[facility] [address] [place], [address] ECRCL 18.46 ml/min Low 50-250 [facility] Comment on above: Performed By: #### L 500.2500 ####[facility] [address] [place], [address] GAP 18 High 5-15 [facility] Comment on above: Performed By: #### L 500.2500 ####[facility] [address] [place], [address] GFR/1.73 sq M.predicted among non-blacks MDRD (S/P/Bld) [Vol rate/Area] 23 mL/min/{1.73_m2} Low >60 [facility] Comment on above: Result Comment: mL/m in/1.73m2 CKD-EPI Creatinine Equation (2020) Performed By: #### L 500.2500 ####[facility] [address] [place], [address] Glucose [Mass/Vol] 407 mg/dL High 70-99 [facility] Comment on above: Performed By: #### L 500.2500 ####[facility] [address] [place], [address] Potassium [Moles/Vol] 4.3 mmol/L Normal 3.3-5.1 [facility] Comment on above: Performed By: #### L 500.2500 ####[facility] [address] [place], [address] Sodium [Moles/Vol] 135 mmol/L Normal 133-145 [facility] Comment on above: Performed By: #### L 500.2500 ####[facility] [address] [place], [address] Urea nitrogen [Mass/Vol] 62 mg/dL High 4-19 [facility] Comment on above: Performed By: #### L 500.2500 ####[facility] [address] [place], [address] BUN/CRE 21.7 RATIO High 10-20 [facility] Comment on above: Performed By: #### L 500.2500 ####[facility] [address] [place], [address] Calcium [Mass/Vol] 8.6 mg/dL Normal 7.6-11.0 [facility] Comment on above: Performed By: #### L 500.2500 ####[facility] [address] [place], [address] Chloride [Moles/Vol] 98 mmol/L Normal 98-108 [facility] Comment on above: Performed By: #### L 500.2500 ####[facility] [address] [place], [address] CO2 [Moles/Vol] 13.6 mmol/L Low 21.0-32.0 [facility] Comment on above: Performed By: #### L 500.2500 ####[facility] [address] [place], [address] Creatinine [Mass/Vol] 2.67 mg/dL High 0.70-1.20 [facility] Comment on above: Performed By: #### L 500.2500 ####[facility] [address] [place], [address] ECRCL 18.87 ml/min Low 50-250 [facility] Comment on above: Performed By: #### L 500.2500 ####[facility] [address] [place], [address] GAP 21 High 5-15 [facility] Comment on above: Performed By: #### L 500.2500 ####[facility] [address] [place], [address] GFR/1.73 sq M.predicted among non-blacks MDRD (S/P/Bld) [Vol rate/Area] 23 mL/min/{1.73_m2} Low >60 [facility] Comment on above: Result Comment: mL/m in/1.73m2 CKD-EPI Creatinine Equation (2020) Performed By: #### L 500.2500 ####[facility] [address] [place], [address] Glucose [Mass/Vol] 638 mg/dL Invalid Interpretation Code 70-99 [facility] Comment on above: Result Comment: Crit ical Result(s) Called STEPHANY at: 1553 by:COLETTE??Results read back by same. Performed By: #### L 500.2500 ####[facility] [address] [place], [address] Potassium [Moles/Vol] 4.4 mmol/L Normal 3.3-5.1 [facility] Comment on above: Performed By: #### L 500.2500 ####[facility] [address] [place], [address] Sodium [Moles/Vol] 133 mmol/L Normal 133-145 [facility] Comment on above: Performed By: #### L 500.2500 ####[facility] [address] [place], [address] Urea nitrogen [Mass/Vol] 58 mg/dL High 4-19 [facility] Comment on above: Performed By: #### L 500.2500 ####[facility] [address] [place], [address] BUN/CRE 22.3 RATIO High 10-20 [facility] Comment on above: Performed By: #### L 100.0100, L500.2500, L300.8000 ####[facility] [address] [place], [address] Calcium [Mass/Vol] 8.8 mg/dL Normal 7.6-11.0 [facility] Comment on above: Performed By: #### L 100.0100, L500.2500, L300.8000 ####[facility] [address] [place], [address] Chloride [Moles/Vol] 104 mmol/L Normal 98-108 [facility] Comment on above: Performed By: #### L 100.0100, L500.2500, L300.8000 ####[facility] [address] [place], [address] CO2 [Moles/Vol] 20.8 mmol/L Low 21.0-32.0 [facility] Comment on above: Performed By: #### L 100.0100, L500.2500, L300.8000 ####[facility] [address] [place], [address] Creatinine [Mass/Vol] 1.88 mg/dL High 0.70-1.20 [facility] Comment on above: Performed By: #### L 100.0100, L500.2500, L300.8000 ####[facility] [address] [place], [address] ECRCL 28.20 ml/min Low 50-250 [facility] Comment on above: Performed By: #### L 100.0100, L500.2500, L300.8000 ####[facility] [address] [place], [address] GAP 14 Normal 5-15 [facility] Comment on above: Performed By: #### L 100.0100, L500.2500, L300.8000 ####[facility] [address] [place], [address] GFR/1.73 sq M.predicted among non-blacks MDRD (S/P/Bld) [Vol rate/Area] 35 mL/min/{1.73_m2} Low >60 [facility] Comment on above: Result Comment: mL/m in/1.73m2 CKD-EPI Creatinine Equation (2020) Performed By: #### L 100.0100, L500.2500, L300.8000 ####[facility] [address] [place], [address] Glucose [Mass/Vol] 255 mg/dL High 70-99 [facility] Comment on above: Performed By: #### L 100.0100, L500.2500, L300.8000 ####[facility] [address] [place], [address] Potassium [Moles/Vol] 4.4 mmol/L Normal 3.3-5.1 [facility] Comment on above: Performed By: #### L 100.0100, L500.2500, L300.8000 ####[facility] [address] [place], [address] Sodium [Moles/Vol] 139 mmol/L Normal 133-145 [facility] Comment on above: Performed By: #### L 100.0100, L500.2500, L300.8000 ####[facility] [address] [place], [address] Urea nitrogen [Mass/Vol] 42 mg/dL High 4-19 [facility] Comment on above: Performed By: #### L 100.0100, L500.2500, L300.8000 ####[facility] [address] [place], [address] Basophil percentageOrdered B y: John Aleksandr on 04-03-2025 Basophils/100 WBC (Bld) 0.6 % 0-1 [facility] Bedside Glucoseon 04-03-2025 FINGERSTICK GLU 363 mg/dL High 74-106 [facility] Comment on above: Result Comment: ADITI CHOPRAENT OF PATIENT CARE PER NURSING PROTOCOL Performed By: #### L 501.080 ####[facility] [address] [place], [address] FINGERSTICK GLU 454 mg/dL Invalid Interpretation Code 74-106 [facility] Comment on above: Result Comment: Dr James sim FollowedMANAGEMENT OF PATIENT CARE PER NURSING PROTOCOL Performed By: #### L 501.080 ####[facility] [address] [place], [address] FINGERSTICK GLU 496 mg/dL Invalid Interpretation Code 74-106 [facility] Comment on above: Result Comment: Dr James sim FollowedMANAGEMENT OF PATIENT CARE PER NURSING PROTOCOL Performed By: #### L 501.080 ####[facility] [address] [place], [address] FINGERSTICK GLU > 500 Invalid Interpretation Code [address] [place] [address] Comment on above: Result Comment: ADITI GEMENT OF PATIENT CARE PER NURSING PROTOCOL Performed By: #### L 501.080 ####[facility] [address] [place], [address] FINGERSTICK GLU > 500 Invalid Interpretation Code [address] [place] [address] Comment on above: Result Comment: ADITI GEMENT OF PATIENT CARE PER NURSING PROTOCOL Performed By: #### L 501.080 ####[facility] [address] [place], [address] FINGERSTICK GLU > 500 Invalid Interpretation Code [address] [place] [address] Comment on above: Result Comment: ADITI GEMENT OF PATIENT CARE PER NURSING PROTOCOL Performed By: #### L 501.080 ####[facility] [address] [place], [address] FINGERSTICK GLU 435 mg/dL High [address] [place] [address] Comment on above: Result Comment: ADITI GEMENT OF PATIENT CARE PER NURSING PROTOCOL Performed By: #### L 501.080 ####[facility] [address] [place], [address] Bilirubin, totalOrdered By: Dyana Hwang on 04-03-2025 Bilirubin [Mass/Vol] 0.38 mg/dL 0.00-1.30 [facility] Positive Normal [facility] Comment on above: Performed By: #### L 9000.0800 ####[facility] [address] [place], [address] Base excess Calc (Bld) [Moles/Vol] -8 mmol/L Low -2 to +2 [facility] Comment on above: Performed By: #### L 9000.0800 ####[facility] [address] [place], [address] Blood Gas Type ART Normal [facility] Comment on above: Performed By: #### L 8999.799 ####[facility] [address] [place], [address] CO2 [Moles/Vol] 18 mmol/L Normal [facility] Comment on above: Performed By: #### L 8999.08 ####[facility] [address] [place], [address] FI02 30.0 Normal [facility] Comment on above: Performed By: #### L 8999.799 ####[facility] [address] [place], [address] HCO3 (Bld) [Moles/Vol] 17.5 mmol/L Low 22-26 [facility] Comment on above: Performed By: #### L 8999.08 ####[facility] [address] [place], [address] Mode Not entered Normal [facility] Comment on above: Performed By: #### L 8999.08 ####[facility] [address] [place], [address] O2 Delivery Dev BiPAP Normal [facility] Comment on above: Performed By: #### L 8999.08 ####[facility] [address] [place], [address] pCO2 29.8 mmHg Low 35-45 [facility] Comment on above: Performed By: #### L 8999.08 ####[facility] [address] [place], [address] PEEP 10 Normal [facility] Comment on above: Performed By: #### L 8999.08 ####[facility] [address] [place], [address] pH (Bld) 7.38 [pH] Normal 7.35-7.45 [facility] Comment on above: Performed By: #### L 9000.0800 ####[facility] [address] [place], [address] PIP 18 Normal [facility] Comment on above: Performed By: #### L 9000.0800 ####[facility] [address] [place], [address] PO2 83 mmHG Normal 75-100 [facility] Comment on above: Performed By: #### L 9000.0800 ####[facility] [address] [place], [address] RR 12 Normal [facility] Comment on above: Performed By: #### L 9000.0800 ####[facility] [address] [place], [address] SITE R Radial Normal [facility] Comment on above: Performed By: #### L 9000.0800 ####[facility] [address] [place], [address] SO2 96 Normal 95-99 [facility] Comment on above: Performed By: #### L 9000.0800 ####[facility] [address] [place], [address] Blood base excess determinat ionOrdered By: Dyana Hwang on 04-03-2025 Base excess Calc (BldV) [Moles/Vol] -8 mmol/L Low -2-2 [facility] Blood bicarbonate measuremen tOrdered By: Dyana Hwang on 04-03-2025 HCO3 (Bld) [Moles/Vol] 17.5 mmol/L Low 22-26 [facility] Blood cultureOrdered By: Elli Brandon on 04-03-2025 Bacteria identified Cx Nom (Bld) No growth in 5 days. [facility] Bacteria identified Cx Nom (Bld) No growth in 5 days. [facility] CBC W/Diff, Automatedon 06-0 3-2024 Absolute Lymph 0.43 X10 3/uL Low 0.83-4.51 [facility] Comment on above: Performed By: #### L 100.0100 ####[facility] [address] [place], [address] Absolute Neut 12.4 X10 3/uL High 2.0-7.7 [facility] Comment on above: Performed By: #### L 100.0100 ####[facility] [address] [place], [address] Basophils/100 WBC (Bld) 0.3 % Normal 0-1 [facility] Comment on above: Performed By: #### L 100.0100 ####[facility] [address] [place], [address] Eosinophils/100 WBC (Bld) 0.0 % Normal 0-5 [facility] Comment on above: Performed By: #### L 100.0100 ####[facility] [address] [place], [address] Erythrocyte distribution width (RBC) [Ratio] 13.4 % Normal 11.6-14.6 [facility] Comment on above: Performed By: #### L 100.0100 ####[facility] [address] [place], [address] Hematocrit (Bld) [Volume fraction] 28.9 % Low 40-54 [facility] Comment on above: Performed By: #### L 100.0100 ####[facility] [address] [place], [address] Hemoglobin (Bld) [Mass/Vol] 9.3 g/dL Low 13.0-16.5 [facility] Comment on above: Performed By: #### L 100.0100 ####[facility] [address] [place], [address] IG% 0.500 Normal 0.0-0.9 [facility] Comment on above: Result Comment: IG% - Immature Granulocytes (promyelocytes, myelocytes andmetamyelocytes) > 1% indicates that a LEFT SHIFT is Present. Performed By: #### L 100.0100 ####[facility] [address] [place], [address] Lymphocytes/100 WBC (Bld) 3.3 % Low 19-41 [facility] Comment on above: Performed By: #### L 100.0100 ####[facility] [address] [place], [address] MCH (RBC) [Entitic mass] 30.1 pg Normal 27.0-32.0 [facility] Comment on above: Performed By: #### L 100.0100 ####[facility] [address] [place], [address] MCHC (RBC) [Mass/Vol] 32.2 g/dL Normal 32-36 [facility] Comment on above: Performed By: #### L 100.0100 ####[facility] [address] [place], [address] MCV (RBC) [Entitic vol] 93.5 fL Normal 80-94 [facility] Comment on above: Performed By: #### L 100.0100 ####[facility] [address] [place], [address] Monocytes/100 WBC (Bld) 1.1 % Normal 0-10 [facility] Comment on above: Performed By: #### L 100.0100 ####[facility] [address] [place], [address] Neutrophils/100 WBC (Bld) 94.8 % High 47-70 [facility] Comment on above: Performed By: #### L 100.0100 ####[facility] [address] [place], [address] Nucleated RBC (Bld) [#/Vol] 0 10*3/uL Normal 0-5 [facility] Comment on above: Performed By: #### L 100.0100 ####[facility] [address] [place], [address] Platelet mean volume (Bld) [Entitic vol] 11.4 fL Normal 6.2-12.0 [facility] Comment on above: Performed By: #### L 100.0100 ####[facility] [address] [place], [address] Platelets (Bld) [#/Vol] 268 10*3/uL Normal 150-450 [facility] Comment on above: Performed By: #### L 100.0100 ####[facility] [address] [place], [address] RBC (Bld) [#/Vol] 3.09 10*6/uL Low 4.6-6.2 [facility] Comment on above: Performed By: #### L 100.0100 ####[facility] [address] [place], [address] RDW SD 45.9 fl High 35.1-43.9 [facility] Comment on above: Performed By: #### L 100.0100 ####[facility] [address] [place], [address] WBC (Bld) [#/Vol] 13.0 10*3/uL High 4.4-11.0 [facility] Comment on above: Performed By: #### L 100.0100 ####[facility] [address] [place], [address] Absolute Lymph 2.12 X10 3/uL Normal 0.83-4.51 [facility] Comment on above: Performed By: #### L 100.0100, L500.2500, L300.8000 ####[facility] [address] [place], [address] Absolute Neut 12.0 X10 3/uL High 2.0-7.7 [facility] Comment on above: Performed By: #### L 100.0100, L500.2500, L300.8000 ####[facility] [address] [place], [address] Basophils/100 WBC (Bld) 0.6 % Normal 0-1 [facility] Comment on above: Performed By: #### L 100.0100, L500.2500, L300.8000 ####[facility] [address] [place], [address] Eosinophils/100 WBC (Bld) 1.9 % Normal 0-5 [facility] Comment on above: Performed By: #### L 100.0100, L500.2500, L300.8000 ####[facility] [address] [place], [address] Erythrocyte distribution width (RBC) [Ratio] 13.2 % Normal 11.6-14.6 [facility] Comment on above: Performed By: #### L 100.0100, L500.2500, L300.8000 ####[facility] [address] [place], [address] Hematocrit (Bld) [Volume fraction] 32.2 % Low 40-54 [facility] Comment on above: Performed By: #### L 100.0100, L500.2500, L300.8000 ####[facility] [address] [place], [address] Hemoglobin (Bld) [Mass/Vol] 10.2 g/dL Low 13.0-16.5 [facility] Comment on above: Performed By: #### L 100.0100, L500.2500, L300.8000 ####[facility] [address] [place], [address] IG% 0.600 Normal 0.0-0.9 [facility] Comment on above: Result Comment: IG% - Immature Granulocytes (promyelocytes, myelocytes andmetamyelocytes) > 1% indicates that a LEFT SHIFT is Present. Performed By: #### L 100.0100, L500.2500, L300.8000 ####[facility] [address] [place], [address] Lymphocytes/100 WBC (Bld) 13.5 % Low 19-41 [facility] Comment on above: Performed By: #### L 100.0100, L500.2500, L300.8000 ####[facility] [address] [place], [address] MCH (RBC) [Entitic mass] 29.9 pg Normal 27.0-32.0 [facility] Comment on above: Performed By: #### L 100.0100, L500.2500, L300.8000 ####[facility] [address] [place], [address] MCHC (RBC) [Mass/Vol] 31.7 g/dL Low 32-36 [facility] Comment on above: Performed By: #### L 100.0100, L500.2500, L300.8000 ####[facility] [address] [place], [address] MCV (RBC) [Entitic vol] 94.4 fL High 80-94 [facility] Comment on above: Performed By: #### L 100.0100, L500.2500, L300.8000 ####[facility] [address] [place], [address] Monocytes/100 WBC (Bld) 7.0 % Normal 0-10 [facility] Comment on above: Performed By: #### L 100.0100, L500.2500, L300.8000 ####[facility] [address] [place], [address] Neutrophils/100 WBC (Bld) 76.4 % High 47-70 [facility] Comment on above: Performed By: #### L 100.0100, L500.2500, L300.8000 ####[facility] [address] [place], [address] Nucleated RBC (Bld) [#/Vol] 0 10*3/uL Normal 0-5 [facility] Comment on above: Performed By: #### L 100.0100, L500.2500, L300.8000 ####[facility] [address] [place], [address] Platelet mean volume (Bld) [Entitic vol] 10.8 fL Normal 6.2-12.0 [facility] Comment on above: Performed By: #### L 100.0100, L500.2500, L300.8000 ####[facility] [address] [place], [address] Platelets (Bld) [#/Vol] 300 10*3/uL Normal 150-450 [facility] Comment on above: Performed By: #### L 100.0100, L500.2500, L300.8000 ####[facility] [address] [place], [address] RBC (Bld) [#/Vol] 3.41 10*6/uL Low 4.6-6.2 [facility] Comment on above: Performed By: #### L 100.0100, L500.2500, L300.8000 ####[facility] [address] [place], [address] RDW SD 45.3 fl High 35.1-43.9 [facility] Comment on above: Performed By: #### L 100.0100, L500.2500, L300.8000 ####[facility] [address] [place], [address] WBC (Bld) [#/Vol] 15.7 10*3/uL High 4.4-11.0 [facility] Comment on above: Performed By: #### L 100.0100, L500.2500, L300.8000 ####[facility] [address] [place], [address] CO2 (BldV) [Moles/Vol]Ordere d By: John Brandon on 04-03-2025 CO2 [Moles/Vol] 27 mmol/L 23-33 [facility] CTA Chest W/WO Contraston CTA Chest W/WO Contrast Normal W [facility] Calculated very low density lipoprotein (VLDL) cholesterol measurementOrdered By: Dyana Hwang on 04-03-2025 Calculated very low density lipoprotein (VLDL) cholesterol measurement 9 mg/dL 5-40 [facility] Carbon dioxide, total [Moles /volume] in Central venous bloodOrdered By: John Brandon on 04-03-2025 CO2 [Moles/Vol] 20.8 mmol/L Low 21.0-32.0 [facility] Chest 1 View (Portable)on Chest 1 View (Portable) Normal [facility] Chloride assayOrdered By: Shabbir Brandon on 04-03-2025 Chloride [Moles/Vol] 104 mmol/L 98-108 [facility] Comprehensive Metabolic Prof ilon 04-03-2025 Albumin [Mass/Vol] 3.6 g/dL Normal 3.4-4.8 [facility] Comment on above: Performed By: #### L 500.4050, L501.9520, L509.7001, L500.4100 ####[facility] [address] [place], [address] Albumin/Globulin [Mass ratio] 1.5 {ratio} Normal 0.9-2.4 [facility] Comment on above: Performed By: #### L 500.4050, L501.9520, L509.7001, L500.4100 ####[facility] [address] [place], [address] ALK PHOS 80 U/L Normal 40-129 [facility] Comment on above: Performed By: #### L 500.4050, L501.9520, L509.7001, L500.4100 ####[facility] [address] [place], [address] ALT [Catalytic activity/Vol] 16 U/L Normal <=46 [facility] Comment on above: Performed By: #### L 500.4050, L501.9520, L509.7001, L500.4100 ####[facility] [address] [place], [address] AST [Catalytic activity/Vol] 24 U/L Normal <=37 [facility] Comment on above: Performed By: #### L 500.4050, L501.9520, L509.7001, L500.4100 ####[facility] [address] [place], [address] Bilirubin [Mass/Vol] 0.38 mg/dL Normal 0.00-1.30 [facility] Comment on above: Performed By: #### L 500.4050, L501.9520, L509.7001, L500.4100 ####[facility] [address] [place], [address] BUN/CRE 24.6 RATIO High 10-20 [facility] Comment on above: Performed By: #### L 500.4050, L501.9520, L509.7001, L500.4100 ####[facility] [address] [place], [address] Calcium [Mass/Vol] 7.9 mg/dL Normal 7.6-11.0 [facility] Comment on above: Performed By: #### L 500.4050, L501.9520, L509.7001, L500.4100 ####[facility] [address] [place], [address] Chloride [Moles/Vol] 104 mmol/L Normal 98-108 [facility] Comment on above: Performed By: #### L 500.4050, L501.9520, L509.7001, L500.4100 ####[facility] [address] [place], [address] CO2 [Moles/Vol] 15.5 mmol/L Low 21.0-32.0 [facility] Comment on above: Performed By: #### L 500.4050, L501.9520, L509.7001, L500.4100 ####[facility] [address] [place], [address] Creatinine [Mass/Vol] 1.77 mg/dL High 0.70-1.20 [facility] Comment on above: Performed By: #### L 500.4050, L501.9520, L509.7001, L500.4100 ####[facility] [address] [place], [address] ECRCL 28.47 ml/min Low 50-250 [facility] Comment on above: Performed By: #### L 500.4050, L501.9520, L509.7001, L500.4100 ####[facility] [address] [place], [address] GAP 18 High 5-15 [facility] Comment on above: Performed By: #### L 500.4050, L501.9520, L509.7001, L500.4100 ####[facility] [address] [place], [address] GFR/1.73 sq M.predicted among non-blacks MDRD (S/P/Bld) [Vol rate/Area] 38 mL/min/{1.73_m2} Low >60 [facility] Comment on above: Result Comment: mL/m in/1.73m2 CKD-EPI Creatinine Equation (2020) Performed By: #### L 500.4050, L501.9520, L509.7001, L500.4100 ####[facility] [address] [place], [address] Globulin (S) [Mass/Vol] 2.4 g/dL Normal 2.2-4.2 [facility] Comment on above: Performed By: #### L 500.4050, L501.9520, L509.7001, L500.4100 ####[facility] [address] [place], [address] Glucose [Mass/Vol] 428 mg/dL High 70-99 [facility] Comment on above: Performed By: #### L 500.4050, L501.9520, L509.7001, L500.4100 ####[facility] [address] [place], [address] Potassium [Moles/Vol] 4.5 mmol/L Normal 3.3-5.1 [facility] Comment on above: Performed By: #### L 500.4050, L501.9520, L509.7001, L500.4100 ####[facility] [address] [place], [address] Sodium [Moles/Vol] 137 mmol/L Normal 133-145 [facility] Comment on above: Performed By: #### L 500.4050, L501.9520, L509.7001, L500.4100 ####[facility] [address] [place], [address] T PROT 6.0 g/dL Normal 5.9-8.4 [facility] Comment on above: Performed By: #### L 500.4050, L501.9520, L509.7001, L500.4100 ####[facility] [address] [place], [address] Urea nitrogen [Mass/Vol] 44 mg/dL High 4-19 [facility] Comment on above: Performed By: #### L 500.4050, L501.9520, L509.7001, L500.4100 ####[facility] [address] [place], [address] Consultation - Cardiologyon 04-03-2025 Consultation - Cardiology Normal [facility] Consultation - Intensiviston 04-03-2025 Consultation - Foil Stamp Operator Normal [facility] D-Dimer Quantitative (DVT/PE )on 04-03-2025 D-DIMER QUANT 1.86 FEU/ug/m Invalid Interpretation Code 0.27-0.49 [facility] Comment on above: Result Comment: D-Di shyanne ELEVATED (>0.49): Additional studies and clinicalassessments are indicated to conclude diagnosis of:Deep Vein Thrombosis (DVT) or Pulmonary Embolism (PE)CRITICAL VALUE CALLED TO [id number] 0117 [address] Santamaria.RESULTS READ BACK BY SAME. Performed By: #### L 100.0100, L500.2500, L300.8000 ####[facility] [address] [place], [address] Echo Completeon 04-03-2025 Echo Complete Normal [facility] Echocardiogram study reportO rdered By: Koffi Gibbs on 04-03-2025 Study report [facility] [address] [place] [address] Echo Complete 04/03/25 0920 MR#: [id number] Acct: [id number] Name: ENOC ARMANDO Rep #:[id number] : 1945 79 From: Koffi Gibbs MD Attending Dr: Dr. Grace Arnold MD Status: ADM IN Ordering Dr: Dyana Hwang MD Date: 04/03/25 Location: ICU Sex: M C Admitted: 04/03/25 Reason For Study Reason For Study: CONGESTIVE HEART FAILURE Procedure This was a 2D Doppler, Color Flow transthoracic echocardiogram. The patient was scanned supine. Exam performed portable in ICU/CCU. Left Ventricle Normal size and thickness. Mid to distal anterior septal, inferior septal, inferior and posterior hypokinesis. Estimated LVEF 40%. Stage I diastolic dysfunction. Right Ventricle Normal right ventricle. Atria The left atrium is mildly enlarged. Normal right atrium. Mitral Valve Severe mitral annular calcification. Moderate (2+) posteriorly directed mitral valve insufficiency. Tricuspid Valve Trivial tricuspid valve insufficiency. Right ventricular systolic pressure estimated to be 41 mmHg. Aortic Valve Aortic sclerosis, no stenosis. Pulmonic Valve The pulmonic valve is not well visualized. Great Vessels Normal sized aortic root. Pericardium/Pleural No pericardial effusion. MMode/2D Measurements & Calculations LVIDd: 4.6 cm IVSd: 0.94 cm LVOT diam: 1.9 cm LVIDs: 3.3 cm LVPWd: 1.1 cm LVOT area: 2.9 cm2 RVDd: 4.2 cm FS: 28.4 % asc Aorta Diam: 2.8 cm LAV(MOD-bp): 45.5 ml LVAd ap4: 25.7 cm2 LAV(MOD-bp) Indexed: 26.6 ml/m2 LVLd ap4: 8.0 cm LAV(MOD-sp2): 66.4 ml EDV(MOD-sp4): 69.2 ml LAV(MOD-sp4): 28.4 ml EDV(sp4-el): 70.2 ml LVAs ap4: 18.6 cm2 LVLs ap4: 7.3 cm ESV(MOD-sp4): 40.5 ml ESV(sp4-el): 40.1 ml EF(MOD-sp4): 41.4 % EF(sp4-el): 42.9 % LVAd ap2: 25.7 cm2 SV(MOD-sp4): 28.7 ml SV(MOD-sp2): 32.8 ml LVLd ap2: 8.0 cm SI(MOD-sp4): 16.7 ml/m2 SI(MOD-sp2): 19.2 ml/m2 EDV(MOD-sp2): 65.4 ml EDV(sp2-el): 69.5 ml LVAs ap2: 17.3 cm2 LVLs ap2: 7.5 cm ESV(MOD-sp2): 32.6 ml ESV(sp2-el): 33.7 ml EF(MOD-sp2): 50.2 % SV(sp4-el): 30.1 ml Ao sinus diam: 3.4 cm LA A4 area: 12.9 cm2 LA dimension(2D): 4.0 cm RA A4 area: 17.5 cm2 TAPSE: 2.0 cm Time Measurements MV dec time: 0.13 sec Doppler Measurements & Calculations MV E max brian: 136.5 cm/sec Lat Peak E' Brian: 10.7 cm/sec Med Peak E' Brian: 6.4 cm/sec MV A max brian: 82.2 cm/sec E/E' lat: 12.7 E/E' med: 21.3 MV E/A: 1.7 Ao V2 max: 107.7 cm/sec LV V1 max: 100.1 cm/sec SV(LVOT): 64.4 ml Ao max P.6 mmHg LV V1 max P.0 mmHg Ao V2 mean: 79.9 cm/sec LV V1 mean P.5 mmHg Ao mean P.8 mmHg LV V1 mean: 75.0 cm/sec Ao V2 VTI: 22.5 cm LV V1 VTI: 21.8 cm AV (velocity ratio): 0.97 SORAIDA(I,D): 2.9 cm2 SORAIDA(V,D): 2.7 cm2 PA V2 max: 106.2 cm/sec TR max brian: 255.8 cm/sec TR max P.2 mmHg ECHO/Echo Complete Interpretation Summary Mid to distal anterior septal, inferior septal, inferior and posterior hypokinesis. Estimated LVEF 40%. Stage I diastolic dysfunction. The left atrium is mildly enlarged. Severe mitral annular calcification. Moderate (2+) posteriorly directed mitral valve insufficiency. Right ventricular systolic pressure estimated to be 41 mmHg. Aortic sclerosis, no stenosis. Ordering Physician: Dyana Hwang Performed By: Fiordaliza Edgar RDCS and Student 04/03/25 1222 Date _ Koffi Gibbs MD CC: Dr. Dyana Hwang MD; Dr. Ryley Jeter MD; Dr. Grace Arnold MD ~ Date Dictated: 04/03/25919 Date Transcribed: 04/03/251221 Exercise Manager: Signed [facility] Work Phone: Emergency Department Summary on 04-03-2025 Emergency Department Summary Normal [facility] Eosinophil percentageOrdered By: John Brandon on 04-03-2025 Eosinophils/100 WBC (Bld) 1.9 % 0-5 [facility] Erythrocyte distribution wid th ratioOrdered By: John Brandon on 04-03-2025 Erythrocyte distribution width (RBC) [Ratio] 13.2 % 11.6-14.6 [facility] Erythrocyte distribution wid th standard deviationOrdered By: John Brandon on 04-03-2025 Erythrocyte distribution width (RBC) [Ratio] 45.3 fl High 35.1-43.9 [facility] Glomerular filtration rate ( GFR) estimation/1.73 sq m using serum, plasma, or whole bOrdered By: John Brandon on 04-03-2025 GFR/1.73 sq M.predicted among non-blacks MDRD (S/P/Bld) [Vol rate/Area] 35 mL/min/{1.73_m2} Low >60 [facility] Comment on above: mL/min/1.73m2 CKD-EP I Creatinine Equation (2020) H AND P Exam - Hospitaliston 04-03-2025 H&P Exam - Hospitalist Normal [facility] Hematocrit Auto (Bld) [Volum e fraction]Ordered By: John Brandon on 04-03-2025 Hematocrit (Bld) [Volume fraction] 32.2 % Low 40-54 [facility] Hemoglobin measurementOrdere d By: John Brandon on 04-03-2025 Hemoglobin (Bld) [Mass/Vol] 10.2 g/dL Low 13.0-16.5 [facility] Immature granulocytes/100 WB C Auto (Bld)Ordered By: John Brandon on 04-03-2025 Immature granulocytes/100 WBC (Bld) 0.600 % 0.0-0.9 [facility] Comment on above: IG% - Immature Granu locytes (promyelocytes, myelocytes and metamyelocytes) > 1% indicates that a LEFT SHIFT is Present. Influenza virus A and B and SARS-CoV-2 (COVID-19) and Respiratory syncytial virus RNAOrdered By: John Brandon on 04-03-2025 SARS-CoV-2 (COVID-19) RNA ALICE+probe Ql (Unsp spec) [facility] International normalized rat io (INR) calculationOrdered By: Dyana Hwang on 04-03-2025 INR Coag (Bld) [Relative time] 1.0 {INR} [facility] L499.0042on 04-03-2025 Trop T High Sen Normal <=22 [facility] Comment on above: Result Comment: Canc elled via OM: Duplicate Order Performed By: #### L 499.0042 ####[facility] [address] [place], [place], [address] Trop T High Sen 76 ng/L Invalid Interpretation Code <=22 [facility] Comment on above: Result Comment: Crit ical Result(s) Called at:0312 by:??DASIA SHRESTHAN TO HARLEY Results read back by same. Performed By: #### L 499.0042 ####[facility] [address] [place], [place], [address] L499.0043on 04-03-2025 Trop T High Sen Normal <=22 [facility] Comment on above: Result Comment: Canc elled via OM: Duplicate Order Performed By: #### L 499.0043 ####[facility] [address] [place], [place], [address] Trop T High Sen 80 ng/L Invalid Interpretation Code <=22 [facility] Comment on above: Result Comment: Crit ical Result(s) Called at: 0515 by: DASIA JOSEPH??Results read back by same. Performed By: #### L 499.0043 ####[facility] [address] [place], [address] L501.4021on 04-03-2025 Trop T High Sen 58 ng/L Invalid Interpretation Code <=22 [facility] Comment on above: Result Comment: Crit ical Result(s) Called at: 0058 by: DASIA ALBRIGHT??Results read back by same. Performed By: #### L 503.7505, L501.4021 ####[facility] [address] [place], [address] L503.7505on 04-03-2025 Natriuretic peptide B (Bld) [Mass/Vol] 6552 pg/mL High <=1800 [facility] Comment on above: Result Comment: Hear t Failure Unlikely: < 300 pg/mLHeart Failure Likely< 50 Years: > 450 pg/mL50-75 Years: > 900 pg/mL>75 Years: > 1800 pg/mL Performed By: #### L 503.7505, L501.4021 ####[facility] [address] [place], [address] L509.7001on 04-03-2025 Procalcitonin 0.31 ng/mL High <=0.10 [facility] Comment on above: Result Comment: Inte rpretation:<0.10-0.25 ng/mL: Antibiotic therapy discouraged. Bacterialinfection unlikely.0.25-0.50 ng/mL: Antibiotic therapy encouraged. Bacterialinfection possible.>0.50 ng/mL: Antibiotic therapy strongly encouraged.Suggestive of presence of bacterial infection.PCT should always be interpreted in the clinical context ofthe patient. Therefore, clinicians should use the PCTresults in conjunction with other laboratory findings andclinical signs of the patient. Performed By: #### L 500.4050, L501.9520, L509.7001, L500.4100 ####[facility] [address] [place], [address] LDL calc ser/plasOrdered By: Dyana Hwang on 04-03-2025 Cholesterol in LDL [Mass/Vol] 80 mg/dL [facility] Comment on above: Kumllmqhrr=300-820 m g/dL & Higher Udin=231 mg/dL or greater Laboratory - Chemistry and C hemistry - challengeOrdered By: Dyana Hwang on 04-03-2025 AST [Catalytic activity/Vol] 24 U/L <38 [facility] Lactic Acidon 04-03-2025 Lactate [Moles/Vol] 1.3 mmol/L Normal 0.0-2.0 [facility] Comment on above: Order Comment: Y Performed By: #### L 503.6005, M200.1000 ####[facility] [address] [place], [address] Lactic acid measurementOrder ed By: John Brandon on 04-03-2025 Lactate [Moles/Vol] 1.3 mmol/L 0.0-2.0 [facility] Legionella Antigen Urineon 0 04-03-2025 LEGU Normal [facility] Comment on above: Performed By: #### M 300.4500 ####[facility] [address] [place], [address] Lipid Profileon 04-03-2025 CHOL:HDL 2.87 Normal [facility] Comment on above: Performed By: #### L 500.4050, L501.9520, L509.7001, L500.4100 ####[facility] [address] [place], [address] Cholesterol [Mass/Vol] 137 mg/dL Normal <=200 [facility] Comment on above: Result Comment: Chol esterol level, Desirable <200 mg/dLBorderline high cholesterol 200-239 mg/dLHigh cholesterol >=240 mg/dLRecommendations of the NCEP Adult Treatment Panel for thefollowing risk-cutoff thresholds for the [place] Americanpulation. Performed By: #### L 500.4050, L501.9520, L509.7001, L500.4100 ####[facility] [address] [place], [address] Cholesterol in HDL [Mass/Vol] 48 mg/dL Normal [facility] Comment on above: Result Comment: Anastacia onal Cholesterol Education Program (NCEP) guidelines:<40 mg/dL: Low HDL-cholesterol (major risk factor for CHD)>= 60 mg/dL: High HDL-cholesterol (negative risk factor forCHD)HDL-cholesterol is affected by a number of factors, e.g.smoking, exercise, hormones, sex and age. Performed By: #### L 500.4050, L501.9520, L509.7001, L500.4100 ####[facility] [address] [place], [address] Cholesterol in LDL [Mass/Vol] 80 mg/dL Normal [facility] Comment on above: Result Comment: Bord vexwky=107-106 mg/dL Higher Xbyb=735 mg/dL or greater Performed By: #### L 500.4050, L501.9520, L509.7001, L500.4100 ####[facility] [address] [place], [address] Cholesterol in VLDL [Mass/Vol] 9 mg/dL Normal 5-40 [facility] Comment on above: Performed By: #### L 500.4050, L501.9520, L509.7001, L500.4100 ####[facility] [facility] [address] [place], [address] Triglyceride [Mass/Vol] 44 mg/dL Normal [facility] Comment on above: Result Comment: The drugs N-Acetylcysteine and Metamizole may falselydepress this assay.Normal range: <150 mg/dLBorderline High: 150-199 mg/dLHigh: 200-499 mg/dLVery High: >500 mg/dL Performed By: #### L 500.4050, L501.9520, L509.7001, L500.4100 ####[facility] [address] [place], [address] M100.678on 04-03-2025 M100.678 SARS-CoV-2 (COVID 19) Negative INFLUENZA A Negative INFLUENZA B Negative RSV PCR Negative Normal [facility] Comment on above: Performed By: #### M 100.678 ####[facility] [address] [place], [address] M8200.1075on 04-03-2025 M8200.1075 Pending MRSA PCR MRSA NEGATIVE STAPH. AUREUS PCR STAPH. AUREUS NEGATIVE Normal [facility] Comment on above: Performed By: #### M 8200.1075 ####[facility] [address] [place], [address] MCV (mean corpuscular volume ) determinationOrdered By: John Brandon on 04-03-2025 MCV (RBC) [Entitic vol] 94.4 fL High 80-94 [facility] Magnesiumon 04-03-2025 Magnesium [Mass/Vol] 2.3 mg/dL High 1.5-2.2 [facility] Comment on above: Order Comment: Comme nts: may add to ED labs Performed By: #### L 300.3900, L501.5200, L300.4310 ####[facility] [address] [place], [address] Magnesium measurement (mass/ volume)Ordered By: Dyana Hwang on 04-03-2025 Magnesium (Unsp spec) [Mass/Vol] 2.3 mg/dL High 1.5-2.2 [facility] Mean corpuscular hemoglobin (MCH) determinationOrdered By: John Brandon on 04-03-2025 MCH (RBC) [Entitic mass] 29.9 pg 27.0-32.0 [facility] Mean corpuscular hemoglobin concentration (MCHC) determinationOrdered By: John Brandon on 04-03-2025 MCHC (RBC) [Mass/Vol] 31.7 g/dL Low 32-36 [facility] Mean platelet volume determi nationOrdered By: John Brandon on 04-03-2025 Platelet mean volume (Bld) [Entitic vol] 10.8 fL 6.2-12.0 [facility] Measurement, pHOrdered By: Anabelle Hwang on 04-03-2025 pH (Unsp spec) 7.38 [pH] 7.35-7.45 [facility] Monocyte percentageOrdered B y: John Brandon on 04-03-2025 Monocytes/100 WBC (Bld) 7.0 % 0-10 [facility] Natriuretic peptide.B prohor katja N-Terminal [Mass/volume] in Serum or PlasmaOrdered By: John Brandon on 04-03-2025 Natriuretic peptide.B prohormone N-Terminal [Mass/Vol] 6552 pg/mL High <1800 [facility] Comment on above: Heart Failure Unlike ly: < 300 pg/mLHeart Failure Likely< 50 Years: > 450 pg/mL50-75 Years: > 900 pg/mL>75 Years: > 1800 pg/mL Neutrophil percentageOrdered By: John Brandon on 04-03-2025 Neutrophils/100 WBC (Bld) 76.4 % High 47-70 [facility] No Panel InformationOrdered By: Dyana Hwang on 04-03-2025 Bedside Blood Gas PEEP 10 [facility] Bld Gas Peak Inspiratory Pressure 18 [facility] Blood Gas Respiration Rate 12 [facility] Blood Gas Sample Site R Radial [facility] Blood Gas Specimen Type ART W [facility] Blood Gas Vent Mode Not entered [facility] Oxygen Delivery Device BiPAP [facility] No Panel InformationOrdered By: John Brandon on 04-03-2025 Blood Gas Clinical Comments 18. 10. 30% [facility] Nucleated red blood cell per centageOrdered By: John Brandon on 04-03-2025 Nucleated RBC/100 WBC (Bld) [Ratio] 0 % 0-5 [facility] Partial Thromboplast Timeon 04-03-2025 aPTT Coag (Bld) [Time] 212.0 s Invalid Interpretation Code 24.1-36.2 [facility] Comment on above: Result Comment: CRIT ICAL VALUE CALLED TO Carol CORONA04/03/25 1243 Ness Huang.RESULTS READ BACK BY SAME. Performed By: #### L 300.4310 ####[facility] [address] [place], [address] aPTT Coag (Bld) [Time] 37.3 s High 24.1-36.2 [facility] Comment on above: Performed By: #### L 300.3900, L501.5200, L300.4310 ####[facility] [address] [place], [address] Platelet countOrdered By: Shabbir Brandon on 04-03-2025 Platelets (Bld) [#/Vol] 300 10*3/uL 150-450 [facility] Potassium measurement (mass/ volume)Ordered By: John Brandon on 04-03-2025 Potassium (Unsp spec) [Mass/Vol] 4.4 mmol/L 3.3-5.1 [facility] Procalcitonin [Mass/volume] in Serum or Plasma by ImmunoassayOrdered By: Dyana Hwang on 04-03-2025 Procalcitonin IA [Mass/Vol] 0.31 ng/mL High <0.11 [facility] Comment on above: Interpretation:<0.10 -0.25 ng/mL: Antibiotic therapy discouraged. Bacterial infection unlikely.0.25-0.50 ng/mL: Antibiotic therapy encouraged. Bacterial infection possible.>0.50 ng/mL: Antibiotic therapy strongly encouraged. Suggestive of presence of bacterial infection.PCT should always be interpreted in the clinical context of the patient. Therefore, clinicians should use the PCT results in conjunction with other laboratory findings and clinical signs of the patient. Prothrombin Time w/INRon INR Coag (PPP) [Relative time] 1.0 {INR} Normal [facility] Comment on above: Performed By: #### L 300.3900, L501.5200, L300.4310 ####[facility] [address] [place], [address] PT Coag (PPP) [Time] 13.4 s Normal 11.7-14.9 [facility] Comment on above: Performed By: #### L 300.3900, L501.5200, L300.4310 ####[facility] [address] [place], [address] Prothrombin timeOrdered By: Dyana Hwang on 04-03-2025 PT Coag (PPP) [Time] 13.4 s 11.7-14.9 [facility] RBC Auto (Bld) [#/Vol]Ordere d By: John Brandon on 04-03-2025 RBC (Bld) [#/Vol] 3.41 10*6/uL Low 4.6-6.2 [facility] RESPIRATORY PANEL MOLECULARo n 04-03-2025 RP PANEL Normal [facility] Comment on above: Performed By: #### M 100.638 ####[facility] [address] [place], [address] Respiratory pathogens detect ion panel by molecular detection methodOrdered By: Dyana Hwang on 04-03-2025 Respiratory pathogens DNA and RNA panel ALICE+probe (Resp) [facility] Screening total cholesterol/ high density lipoprotein (HDL) cholesterol ratioOrdered By: Dyana Hwang on 04-03-2025 Cholesterol.total/Cholest santos in HDL [Mass ratio] 2.87 {ratio} [facility] Serum creatinine measurement (mass/volume)Ordered By: John Brandon on 04-03-2025 Creatinine [Mass/Vol] 1.88 mg/dL High 0.70-1.20 [facility] Serum globulin measurementOr dered By: Dyana Hwang on 04-03-2025 Globulin (S) [Mass/Vol] 2.4 g/dL 2.2-4.2 [facility] Serum glucose measurement (m ass/volume)Ordered By: John Brandon on 04-03-2025 Glucose [Mass/Vol] 255 mg/dL High 70-99 [facility] Serum or plasma alanine clayton otransferase (ALT) measurementOrdered By: Dyana Hwang on 04-03-2025 ALT [Catalytic activity/Vol] 16 U/L <47 [facility] Serum or plasma albumin nikkie urement (mass/volume)Ordered By: Dyana Hwang on 04-03-2025 Albumin [Mass/Vol] 3.6 g/dL 3.4-4.8 [facility] Serum or plasma albumin/glob ulin mass ratioOrdered By: Dynaa Hwang on 04-03-2025 Albumin/Globulin [Mass ratio] 1.5 {ratio} 0.9-2.4 [facility] Serum or plasma alkaline dwight sphatase measurementOrdered By: Dyana Hwang on 04-03-2025 ALP [Catalytic activity/Vol] 80 U/L 40-129 [facility] Serum or plasma calcium nikkie urement (mass/volume)Ordered By: John Brandon on 04-03-2025 Calcium [Mass/Vol] 8.8 mg/dL 7.6-11.0 [facility] Serum or plasma cholesterol in HDL measurement (mass/volume)Ordered By: Dyana Hwang on 04-03-2025 Cholesterol in HDL [Mass/Vol] 48 mg/dL >40 [facility] Comment on above: National Cholesterol Education Program (NCEP) guidelines:<40 mg/dL: Low HDL-cholesterol (major risk factor for CHD)>= 60 mg/dL: High HDL-cholesterol (negative risk factor for CHD)HDL-cholesterol is affected by a number of factors, e.g. smoking, exercise, hormones, sex and age. Serum or plasma cholesterol measurement (mass/volume)Ordered By: Dayna Hwang on 04-03-2025 Cholesterol [Mass/Vol] 137 mg/dL <201 [facility] Comment on above: Cholesterol level, D esirable <200 mg/dLBorderline high cholesterol 200-239 mg/dLHigh cholesterol >=240 mg/dLRecommendations of the NCEP Adult Treatment Panel for the following risk-cutoff thresholds for the [place] population. Serum or plasma urea nitroge n measurement (mass/volume)Ordered By: John Brandon on 04-03-2025 Urea nitrogen [Mass/Vol] 42 mg/dL High 4-19 [facility] Sodium levelOrdered By: Lesley Brandon on 04-03-2025 Sodium [Moles/Vol] 139 mmol/L 133-145 [facility] Strep pneumoniae Antig(UR,CS F)on 04-03-2025 STPAG Normal [facility] Comment on above: Performed By: #### M 300.4600 ####[facility] [address] [place], [place], [id number] TSH DL <= 0.005 mIU/L QnOrde red By: Dyana Hwang on 04-03-2025 TSH Qn 0.530 uIU/mL 0.300-4.200 [facility] Thyroid Stim Hormone (TSH)on 04-03-2025 TSH 0.530 uIU/mL Normal 0.300-4.200 [facility] Comment on above: Performed By: #### L 500.4050, L501.9520, L509.7001, L500.4100 ####[facility] [address] [place], [place], [id number] Total carbon dioxide measure mentOrdered By: Dyana Hwang on 04-03-2025 CO2 [Moles/Vol] 18 mmol/L [facility] Total proteinOrdered By: Aut eleanor Hwang on 04-03-2025 Protein [Mass/Vol] 6.0 g/dL 5.9-8.4 [facility] Triglycerides measurementOrd ered By: Dyana Hwang on 04-03-2025 Triglyceride [Mass/Vol] 44 mg/dL <199 [facility] Comment on above: The drugs N-Acetylcy steine and Metamizole may falsely depress this assay. Normal range: <150 mg/dLBorderline High: 150-199 mg/dLHigh: 200-499 mg/dLVery High: >500 mg/dL Troponin T.cardiac [Mass/vol ume] in Serum or Plasma by High sensitivity methodOrdered By: John Brandon on 04-03-2025 Troponin T.cardiac High sensitivity method [Mass/Vol] 80 ng/L High <22 [facility] Comment on above: Critical Result(s) C alled at: 0515 by: DASIA JOSEPH Results read back by same. Troponin T.cardiac High sensitivity method [Mass/Vol] 76 ng/L High <22 [facility] Comment on above: Critical Result(s) C alled at:0312 by: DASIA BOJORQUEZ Results read back by same. Troponin T.cardiac High sensitivity method [Mass/Vol] 58 ng/L High <22 [facility] Comment on above: Critical Result(s) C alled at: 0058 by: DASIA MOYA TO DELFIN ALBRIGHT Results read back by same. Urine Legionella pneumophila antigen detectionOrdered By: Dyana Hwang on 04-03-2025 L. pneumophila Ag Ql (U) [facility] Urine cultureOrdered By: Cesilia Hwang on 04-03-2025 Bacteria identified Cx Nom (U) Culture exhibits no growth. [facility] Venous Blood Gason 5 Blood Gas Type JUANITA Normal [facility] Comment on above: Performed By: #### L 9000.0810 ####[facility] [address] [place], [place], [id number] CO2 [Moles/Vol] 27 mmol/L Normal 23-33 [facility] Comment on above: Performed By: #### L 9000.0810 ####[facility] [address] [place], [place], [id number] Comment 18. 10. 30% Normal [facility] Comment on above: Performed By: #### L 9000.0810 ####[facility] [address] [place], [address] FI02 30.0 Normal [facility] Comment on above: Performed By: #### L 9000.0810 ####[facility] [address] [place], [place], [phone] HCO3 (Bld) [Moles/Vol] 26 mmol/L Normal 22-26 [facility] Comment on above: Performed By: #### L 9000.0810 ####[facility] [address] [place], [address] O2 Delivery Dev BiPAP Normal [facility] Comment on above: Performed By: #### L 9000.0810 ####[facility] [address] [place], [address] SITE Not entered Normal [facility] Comment on above: Performed By: #### L 9000.0810 ####[facility] [address] [place], [address] VBG BE 0 mmol/L Normal -1.0-3.5 [facility] Comment on above: Performed By: #### L 9000.0810 ####[facility] [address] [place], [address] VBG pCO2 46.6 mmHg Normal 41-51 [facility] Comment on above: Performed By: #### L 9000.0810 ####[facility] [address] [place], [address] VBG pH 7.35 Normal 7.32-7.42 [facility] Comment on above: Performed By: #### L 9000.0810 ####[facility] [address] [place], [address] VBG PO2 44 mmHg High 25-40 [facility] Comment on above: Performed By: #### L 9000.0810 ####[facility] [address] [place], [address] VBG SO2 76 High 50-70 [facility] Comment on above: Performed By: #### L 9000.0810 ####[facility] [address] [place], [address] Venous blood base excess heriberto surementOrdered By: John Brandon on 04-03-2025 Base excess Calc (BldV) [Moles/Vol] 0 mmol/L -1.0-3.5 [facility] Venous blood bicarbonate heriberto surementOrdered By: John Brandon on 04-03-2025 HCO3 (Bld) [Moles/Vol] 26 mmol/L 22-26 [facility] Venous blood oxygen saturati on measurementOrdered By: John Brandon on 04-03-2025 Oxygen saturation in Blood 76 % High 50-70 [facility] Venous blood pH measurementO rdered By: John Brandon on 04-03-2025 pH (BldV) 7.35 [pH] 7.32-7.42 [facility] Venous blood partial pressur e of carbon dioxide measurementOrdered By: John Brandon on 04-03-2025 CO2 (BldV) [Partial pressure] 46.6 mm[Hg] 41-51 [facility] Venous blood partial pressur e of oxygen measurementOrdered By: John Brandon on 04-03-2025 Oxygen (BldV) [Partial pressure] 44 mm[Hg] High 25-40 [facility] White blood cell (WBC) count Ordered By: John Brandon on 04-03-2025 WBC (Bld) [#/Vol] 15.7 10*3/uL High 4.4-11.0 [facility] BASIC METABOLIC PANEL WITH A NION GAPon 03-24-2025 Calcium [Mass/Vol] 8.6 mg/dL Normal 8.6-10.3 [facility] Comment on above: Performed By: #### 9 [id number] #### [facility] [address], [address] [place] [address] [employer]eral Home Manager: Jadon Velez MD Chloride [Moles/Vol] 104 mmol/L Normal 98-110 [facility] Comment on above: Performed By: #### 9 6542 #### [facility] [address], [address] [place], [place] [address] [employer]eral Home Manager: Jadon Velez MD CO2 [Moles/Vol] 23 mmol/L Normal 20-32 [facility] Comment on above: Performed By: #### 9 2498 #### [facility] [address], [address] [place] [address] Funeral Home Manager: Jadon Velez MD Creatinine [Mass/Vol] 1.96 mg/dL High 0.70-1.[address] [facility] Comment on above: Performed By: #### 9 2498 #### [facility] [address], [address] [place] [address] Funeral Home Manager: Jadon Velez MD ELECTROLYTE BALANCE 11 mmol/L (calc) Normal 7-17 [facility] Comment on above: Performed By: #### 9 2498 #### [facility] [place] [address] [employer]eral Home Manager: Jadon Velez MD GFR/1.73 sq M.predicted among non-blacks MDRD (S/P/Bld) [Vol rate/Area] 34 mL/min/{1.73_m2} Low > OR = 60 [facility] Comment on above: Performed By: #### 9 2498 #### [facility] [address], [address] [place] [address] Funeral Home Manager: Jadon Velez MD Glucose [Mass/Vol] 301 mg/dL High 65-99 [facility] Comment on above: Result Comment: Fasting reference interval For someone without known diabetes, a glucose value >125 mg/dL indicates that they may have diabetes and this should be confirmed with a follow-up test. Performed By: #### 9 2498 #### [facility] [address], [address] [place] [address] Funeral Home Manager: Jadon Velez MD Potassium [Moles/Vol] 4.2 mmol/L Normal 3.5-5.[address] [facility] Comment on above: Performed By: #### 9 2498 #### [facility] [address], [address] [place] [address] Funeral Home Manager: Jadon Velez MD Sodium [Moles/Vol] 138 mmol/L Normal 135-146 [facility] Comment on above: Performed By: #### 9 2498 #### [facility] of [facility] [address] [place] [address], [address] [place] [id number] Funeral Home Manager: Jadon Velez MD Urea nitrogen [Mass/Vol] 39 mg/dL High 7-25 [facility] Comment on above: Performed By: #### 9 2498 #### [facility] of [address], [address] [place] [phone] Funeral Home Manager: Jadon Velez MD Urea nitrogen/Creatinine [Mass ratio] 20 mg/mg Normal 6- [facility] Comment on above: Performed By: #### 9 2498 #### [facility] of [address], [address] [employer] Home Manager: Jadon Velez MD APTT HEPARIN COVERAGEon aPTT Coag (Bld) [Time] 86 s High 23-34 [facility] Comment on above: Order Comment: Thera peutic range for APTT's is 68 - 104 seconds Performed By: #### 4 6848 ####[facility] [address] [place] [address] Moody Martinez M.D. 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 Performed By: #### 4 6124 #### [facility] [address] [place], [place] [address] Moody Martinez M.D. 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 [id number] CBCon 03-05-2025 AUTO NRBC 0.0 % Normal [facility] Comment on above: Performed By: #### 4 5218 #### LAB [address] [place] [address] Moody Martinez M.D. [id number] AUTO NRBC ABS COUNT 0.00 K/mcL Normal 0.00-0.00 [facility] Comment on above: Performed By: #### 4 5218 #### LAB [address] [place] [address] Moody Martinez M.D. [id number] Erythrocyte distribution width (RBC) [Ratio] 13.0 % Normal 11.6-14.8 [facility] Comment on above: Performed By: #### 4 5218 #### LAB [address] [place] [address] Moody Martinez M.D. [id number] Hematocrit (Bld) [Volume fraction] 28.4 % Low 41.0-53.0 [facility] Comment on above: Performed By: #### 4 5218 #### LAB [address] [place] [address] Moody Martinez M.D. [id number] Hemoglobin (Bld) [Mass/Vol] 9.3 g/dL Low 13.5-17.5 [facility] Comment on above: Performed By: #### 4 5218 #### [facility] [address] [place] [address] Moody Martinez M.D. [id number] MCH (RBC) [Entitic mass] 30.3 pg Normal 26.0-34.0 [facility] Comment on above: Performed By: #### 4 5218 #### [facility] [address] [place] [address] Moody Martinez M.D. [id number] MCV (RBC) [Entitic vol] 92.5 fL Normal 80.0-100.0 [facility] [facility] Comment on above: Performed By: #### 4 5218 #### LAB [address] [address] Moody Martinez M.D. [id number] MEAN CORPUSCULAR HEMOGLOBIN CONC 32.7 g/dL Normal 31.0-37.0 [facility] Comment on above: Performed By: #### 4 5218 #### LAB [address] [address] Moody Martinez M.D. [id number] Platelet mean volume (Bld) [Entitic vol] 11.8 fL Normal 9.4-12.4 [facility] Comment on above: Performed By: #### 4 5218 #### LAB [address] [address] Moody Martinez M.D. [id number] Platelets (Bld) [#/Vol] 191 10*3/uL Normal 150-400 [facility] Comment on above: Performed By: #### 4 5218 #### LAB [address] [address] Moody Martinez M.D. [id number] RBC (Bld) [#/Vol] 3.07 10*6/uL Low 4.50-5.90 [facility] Comment on above: Performed By: #### 4 [id number] #### LAB [address] [address] Moody Martinez M.D. [id number] WBC (Bld) [#/Vol] 9.14 10*3/uL Normal 4.50-11.00 [facility] Comment on above: Performed By: #### 4 [id number] #### LAB [address] [address] Moody Martinez M.D. [id number] MAGNESIUM LEVELon 03-05-2025 Magnesium [Mass/Vol] 2.2 mg/dL Normal 1.6-2.4 [facility] Comment on above: Performed By: #### 4 6109 #### LAB [address] [address] Moody Martinez M.D. [id number] POC GLUCOSE - [facility] 025 Glucose [Mass/Vol] 249 mg/dL High [address] [place] [address] Comment on above: Performed By: #### 4 6932 #### LAB [address] [address] Moody Martinez M.D. [id number] Glucose [Mass/Vol] 188 mg/dL [address] Comment on above: Performed By: #### 4 6932 #### LAB [address] [address] Moody Martinez M.D. [id number] Glucose [Mass/Vol] 115 mg/dL [address] Comment on above: Performed By: #### 4 6932 #### LAB [address] [address] Moody Martinez M.D. [id number] POTASSIUM LEVELon 03-05-2025 Potassium [Moles/Vol] 3.4 mmol/L Low 3.5-5.1 [facility] Comment on above: Performed By: #### 4 6351 #### LAB [address] [address] Moody Martinez M.D. [id number] APTT HEPARIN COVERAGEon aPTT Coag (Bld) [Time] 72 s High 23-34 [facility] Comment on above: Order Comment: Thera peutic range for APTT's is 68 - 104 seconds Performed By: #### 4 4014 #### LAB [address] [place], [place] [address] Moody Martinez M.D. [id number] BASIC METABOLIC PANELon 05-0 Anion gap [Moles/Vol] 16 mmol/L Normal 10-20 [facility] Comment on above: Order Comment: [facility] has implemented the eGFR calculation approach that does not have a coefficient for race that conforms to the NKF-ASN Task Force Recommendations. Performed By: #### 4 6124 #### LAB [address] [address] Moody Martinez M.D. [id number] Calcium [Mass/Vol] 8.3 mg/dL Low 8.4-10.2 [facility] Comment on above: Order Comment: [facility] has implemented the eGFR calculation approach that does not have a coefficient for race that conforms to the NKF-ASN Task Force Recommendations. Performed By: #### 4 6124 #### LAB [address] [address] Moody Martinez M.D. [id number] Chloride [Moles/Vol] 103 mmol/L Normal 98-108 [facility] Comment on above: Order Comment: [facility] has implemented the eGFR calculation approach that does not have a coefficient for race that conforms to the NKF-ASN Task Force Recommendations. Performed By: #### 4 6124 #### LAB [address] [id number] Moody Martinez M.D. [id number] Creatinine [Mass/Vol] 1.89 mg/dL High 0.80-1.30 [facility] Comment on above: Order Comment: [facility] has implemented the eGFR calculation approach that does not have a coefficient for race that conforms to the NKF-ASN Task Force Recommendations. Performed By: #### 4 6124 #### LAB [address] [id number] Moody Martinez M.D. [id number] EGFR 35 mL/min/1.73 m2 Low >=60 [facility] Comment on above: Order Comment: [facility] has implemented the eGFR calculation approach that does not have a coefficient for race that conforms to the NKF-ASN Task Force Recommendations. Result Comment: Albin mated GFR was calculated using the 2020 CKD-EPI creatinine equation. Performed By: #### 4 6124 ####[facility] LAB [address] [address] Moody Martinez M.D. [id number] Glucose [Mass/Vol] 190 mg/dL High 65-99 [facility] Comment on above: Order Comment: [facility] has implemented the eGFR calculation approach that does not have a coefficient for race that conforms to the NKF-ASN Task Force Recommendations. Performed By: #### 4 6124 #### LAB [address] [address] Moody Martinez M.D. [id number] HCO3 (Bld) [Moles/Vol] 25 mmol/L Normal 21-32 [facility] Comment on above: Order Comment: [facility] has implemented the eGFR calculation approach that does not have a coefficient for race that conforms to the NKF-ASN Task Force Recommendations. Performed By: #### 4 6169 #### LAB [address] [address] Moody Martinez M.D. [id number] Potassium [Moles/Vol] 3.5 mmol/L Normal 3.5-5.1 [facility] Comment on above: Order Comment: [facility] has implemented the eGFR calculation approach that does not have a coefficient for race that conforms to the NKF-ASN Task Force Recommendations. Performed By: #### 4 6182 ####[facility] LAB [address] [address] Moody Martinez M.D. [id number] Sodium [Moles/Vol] 140 mmol/L Normal 135-145 [facility] Comment on above: Order Comment: [facility] has implemented the eGFR calculation approach that does not have a coefficient for race that conforms to the NKF-ASN Task Force Recommendations. Performed By: #### 4 6124 #### LAB [address] [address] Moody Martinez M.D. [id number] Urea nitrogen [Mass/Vol] 45 mg/dL High 8-25 [facility] Comment on above: Order Comment: [facility] has implemented the eGFR calculation approach that does not have a coefficient for race that conforms to the NKF-ASN Task Force Recommendations. Performed By: #### 4 6124 #### LAB [address] [address] Moody Martinez M.D. [id number] Urea nitrogen/Creatinine [Mass ratio] 23.8 mg/mg High 10.0-20.0 [facility] Comment on above: Order Comment: [facility] has implemented the eGFR calculation approach that does not have a coefficient for race that conforms to the NKF-ASN Task Force Recommendations. Performed By: #### 4 6124 #### LAB [address] [address] Moody Martinez M.D. [id number] CBCon 03-04-2025 AUTO NRBC 0.0 % Normal [facility] Comment on above: Performed By: #### 4 5218 #### LAB [address] [address] Moody Martinez M.D. [id number] AUTO NRBC ABS COUNT 0.00 K/mcL Normal 0.00-0.00 [facility] Comment on above: Performed By: #### 4 5218 #### LAB [address] [address] Moody Martinez M.D. [id number] Erythrocyte distribution width (RBC) [Ratio] 13.1 % Normal 11.6-14.8 [facility] Comment on above: Performed By: #### 4 5218 #### LAB [address] [address] Moody Martinez M.D. [id number] Hematocrit (Bld) [Volume fraction] 28.1 % Low 41.0-53.0 [facility] Comment on above: Performed By: #### 4 5218 #### LAB [address] [address] Moody Martinez M.D. [id number] Hemoglobin (Bld) [Mass/Vol] 9.0 g/dL Low 13.5-17.5 [facility] Comment on above: Performed By: #### 4 5218 #### LAB [address] [address] Moody Martinez M.D. [id number] MCH (RBC) [Entitic mass] 30.6 pg Normal 26.0-34.0 [facility] Comment on above: Performed By: #### 4 5218 #### LAB [address] [address] Moody Martinez M.D. [id number] MCV (RBC) [Entitic vol] 95.6 fL Normal 80.0-100.0 [facility] Comment on above: Performed By: #### 4 5218 #### LAB [address] [address] Moody Martinez M.D. [id number] MEAN CORPUSCULAR HEMOGLOBIN CONC 32.0 g/dL Normal 31.0-37.0 [facility] Comment on above: Performed By: #### 4 5218 #### LAB [address] [address] Moody Martinez M.D. [id number] Platelet mean volume (Bld) [Entitic vol] 11.8 fL Normal 9.4-12.4 [facility] Comment on above: Performed By: #### 4 5218 #### LAB [address] [address] Moody Martinez M.D. [id number] Platelets (Bld) [#/Vol] 175 10*3/uL Normal 150-400 [facility] Comment on above: Performed By: #### 4 5218 #### LAB [address] [address] Moody Martinez M.D. [id number] RBC (Bld) [#/Vol] 2.94 10*6/uL Low 4.50-5.90 [facility] Comment on above: Performed By: #### 4 5218 #### LAB [address] [address] Moody Martinez M.D. [id number] WBC (Bld) [#/Vol] 8.08 10*3/uL Normal 4.50-11.00 [facility] Comment on above: Performed By: #### 4 5218 #### LAB [address] [address] Moody Martinez M.D. [id number] MAGNESIUM LEVELon 03-04-2025 Magnesium [Mass/Vol] 2.2 mg/dL Normal 1.6-2.4 [facility] Comment on above: Performed By: #### 4 6109 #### LAB [address] [address] Moody Martinez M.D. [id number] POC GLUCOSE - [facility] 025 Glucose [Mass/Vol] 51 mg/dL Off scale low [address] [place] [address] Comment on above: Order Comment: Criti christian result acted upon time of test. Test performed at bedside. Performed By: #### 4 6987 #### LAB [address] [address] Moody Martinez M.D. [id number] Glucose [Mass/Vol] 354 mg/dL [address] Comment on above: Performed By: #### 4 6914 #### LAB [address] [address] Moody Martinez M.D. [id number] Glucose [Mass/Vol] 338 mg/dL [address] Comment on above: Performed By: #### 4 6945 #### LAB [address] [address] Moody Martinez M.D. [id number] Glucose [Mass/Vol] 258 mg/dL [address] Comment on above: Performed By: #### 4 4151 ####[facility] LAB [address] [id number] Moody Martinez M.D. [id number] Glucose [Mass/Vol] 242 mg/dL High 65-99 [facility] Comment on above: Performed By: #### 4 6932 ####[facility] LAB [address] [address] Moody Martinez M.D. [id number] POTASSIUM LEVELon 03-04-2025 Potassium [Moles/Vol] 4.1 mmol/L Normal 3.5-5.1 [facility] Comment on above: Result Comment: Slig htly Hemolyzed Performed By: #### 4 6351 #### LAB [address] [address] Moody Martinez M.D. [id number] TROPONIN (ONCE)on 03-04-2025 BASELINE TROPONIN T NG/L 1494 ng/L Off scale high <=22 [facility] Comment on above: Performed By: #### L [id number] ####[facility] [address] [address] Moody Martinez M.D. [id number] TROPONIN T INTERPRETATION Possible acute cardiac injury. Normal [facility] Comment on above: Performed By: #### L [id number] ####[facility] [address] [address] Moody Martinez M.D. [id number] APTT HEPARIN COVERAGEon 05-0 aPTT Coag (Bld) [Time] 82 s High 23-34 [facility] Comment on above: Order Comment: Thera peutic range for APTT's is 68 - 104 seconds Performed By: #### 4 6932 #### [facility] LAB [address] [address] Moody Martinez M.D. [id number] aPTT Coag (Bld) [Time] 92 s High 23-34 [facility] Comment on above: Order Comment: Thera peutic range for APTT's is 68 - 104 seconds Performed By: #### 4 6848 ####[facility] LAB [address] [address] Moody Martinez M.D. 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 [id number] BASIC METABOLIC PANELon 05-0 Anion gap [Moles/Vol] 15 mmol/L Normal 10-20 [facility] Comment on above: Order Comment: [facility] has implemented the eGFR calculation approach that does not have a coefficient for race that conforms to the NKF-ASN Task Force Recommendations. Performed By: #### 4 6124 #### LAB [address] [address] Moody Martinez M.D. [id number] Calcium [Mass/Vol] 8.3 mg/dL Low 8.4-10.2 [facility] Comment on above: Order Comment: [facility] has implemented the eGFR calculation approach that does not have a coefficient for race that conforms to the NKF-ASN Task Force Recommendations. Performed By: #### 4 6124 #### LAB [address] [address] Moody Martinez M.D. [id number] Chloride [Moles/Vol] 103 mmol/L Normal 98-108 [facility] Comment on above: Order Comment: [facility] has implemented the eGFR calculation approach that does not have a coefficient for race that conforms to the NKF-ASN Task Force Recommendations. Performed By: #### 4 6124 #### LAB [address] [address] Moody Martinez M.D. [id number] Creatinine [Mass/Vol] 2.09 mg/dL High 0.80-1.30 [facility] Comment on above: Order Comment: [facility] has implemented the eGFR calculation approach that does not have a coefficient for race that conforms to the NKF-ASN Task Force Recommendations. Performed By: #### 4 6141 #### LAB [address] [address] Moody Martinez M.D. [id number] EGFR 31 mL/min/1.73 m2 Low >=60 [facility] Comment on above: Order Comment: [facility] has implemented the eGFR calculation approach that does not have a coefficient for race that conforms to the NKF-ASN Task Force Recommendations. Result Comment: Albin mated GFR was calculated using the 2020 CKD-EPI creatinine equation. Performed By: #### 4 6167 #### LAB [address] [address] Moody Martinez M.D. [id number] Glucose [Mass/Vol] 240 mg/dL High 65-99 [facility] Comment on above: Order Comment: [facility] has implemented the eGFR calculation approach that does not have a coefficient for race that conforms to the NKF-ASN Task Force Recommendations. Performed By: #### 4 6113 #### LAB [address] [address] Moody Martinez M.D. [id number] HCO3 (Bld) [Moles/Vol] 26 mmol/L Normal 21-32 [facility] Comment on above: Order Comment: [facility] has implemented the eGFR calculation approach that does not have a coefficient for race that conforms to the NKF-ASN Task Force Recommendations. Performed By: #### 4 6170 #### LAB [address] [address] Moody Martinez M.D. [id number] Potassium [Moles/Vol] 3.6 mmol/L Normal 3.5-5.1 [facility] Comment on above: Order Comment: [facility] has implemented the eGFR calculation approach that does not have a coefficient for race that conforms to the NKF-ASN Task Force Recommendations. Performed By: #### 4 6190 #### LAB [address] [address] Moody Martinez M.D. [id number] Sodium [Moles/Vol] 140 mmol/L Normal 135-145 [facility] Comment on above: Order Comment: [facility] has implemented the eGFR calculation approach that does not have a coefficient for race that conforms to the NKF-ASN Task Force Recommendations. Performed By: #### 4 6124 #### LAB [address] [address] Moody Martinez M.D. [id number] Urea nitrogen [Mass/Vol] 49 mg/dL High 8-25 [facility] Comment on above: Order Comment: [facility] has implemented the eGFR calculation approach that does not have a coefficient for race that conforms to the NKF-ASN Task Force Recommendations. Performed By: #### 4 6124 #### LAB [address] [address] Moody Martinez M.D. [id number] Urea nitrogen/Creatinine [Mass ratio] 23.4 mg/mg High 10.0-20.0 [facility] Comment on above: Order Comment: [facility] has implemented the eGFR calculation approach that does not have a coefficient for race that conforms to the NKF-ASN Task Force Recommendations. Performed By: #### 4 6124 #### LAB [address] [address] Moody Martinez M.D. [id number] CBCon 03-03-2025 AUTO NRBC 0.0 % Normal [facility] Comment on above: Performed By: #### 4 5218 #### LAB [address] [id number] Moody Martinez M.D. [id number] AUTO NRBC ABS COUNT 0.00 K/mcL Normal 0.00-0.00 [facility] Comment on above: Performed By: #### 4 5218 #### LAB [address] [address] Moody Martinez M.D. [id number] Erythrocyte distribution width (RBC) [Ratio] 13.5 % Normal 11.6-14.8 [facility] Comment on above: Performed By: #### 4 5218 #### LAB [address] [address] Moody Martinez M.D. [id number] Hematocrit (Bld) [Volume fraction] 28.5 % Low 41.0-53.0 [facility] Comment on above: Performed By: #### 4 5218 #### LAB [address] [address] Moody Martinez M.D. [id number] Hemoglobin (Bld) [Mass/Vol] 9.3 g/dL Low 13.5-17.5 [facility] Comment on above: Performed By: #### 4 5218 #### LAB [address] [address] Moody Martinez M.D. [id number] MCH (RBC) [Entitic mass] 30.8 pg Normal 26.0-34.0 [facility] Comment on above: Performed By: #### 4 5218 #### LAB [address] [address] Moody Martinez M.D. [id number] MCV (RBC) [Entitic vol] 94.4 fL Normal 80.0-100.0 [facility] Comment on above: Performed By: #### 4 5218 #### LAB [address] [address] Moody Martinez M.D. [id number] MEAN CORPUSCULAR HEMOGLOBIN CONC 32.6 g/dL Normal 31.0-37.0 [facility] Comment on above: Performed By: #### 4 5218 #### LAB [address] [address] Moody Martinez M.D. [id number] Platelet mean volume (Bld) [Entitic vol] 11.8 fL Normal 9.4-12.4 [facility] Comment on above: Performed By: #### 4 5218 #### LAB [address] [address] Moody Martinez M.D. [id number] Platelets (Bld) [#/Vol] 159 10*3/uL Normal 150-400 [facility] Comment on above: Performed By: #### 4 5218 #### LAB [address] [address] Moody Martinez M.D. [id number] RBC (Bld) [#/Vol] 3.02 10*6/uL Low 4.50-5.90 [facility] Comment on above: Performed By: #### 4 5218 ####[facility] LAB [address] [address] Moody Martinez M.D. [id number] WBC (Bld) [#/Vol] 10.19 10*3/uL Normal 4.50-11.00 [facility] Comment on above: Performed By: #### 4 5218 #### LAB [address] [address] Moody Matrinez M.D. [id number] MAGNESIUM LEVELon 03-03-2025 Magnesium [Mass/Vol] 2.3 mg/dL Normal 1.6-2.4 [facility] Comment on above: Performed By: #### 4 6109 ####[facility] LAB [address] [address] Moody Martinez M.D. [id number] POC GLUCOSE [facility] 025 Glucose [Mass/Vol] 221 mg/dL High [address] [place] [address] Comment on above: Performed By: #### L [id number] #### [facility] [address] [id number] Moody Martinez M.D. [id number] Glucose [Mass/Vol] 189 mg/dL High [address] [place] [address] Comment on above: Performed By: #### 4 6932 ####[facility] [address] [address] Moody Martinez M.D. [id number] Glucose [Mass/Vol] 91 mg/dL Normal [address] [place] [address] Comment on above: Performed By: #### 4 6932 ####[facility] [address] [address] Moody Martinez M.D. [id number] Glucose [Mass/Vol] 146 mg/dL High 65-99 [facility] Comment on above: Performed By: #### 4 6932 ####[facility] [address] [address] Moody Martinez M.D. [id number] TROPONIN (ONCE)on 03-03-2025 BASELINE TROPONIN T NG/L 1524 ng/L Off scale high <=22 [facility] Comment on above: Performed By: #### 4 6932 #### [facility] LAB [address] [address] Moody Martinez M.D. [id number] TROPONIN T INTERPRETATION Possible acute cardiac injury. Normal [facility] Comment on above: Performed By: #### 4 6932 #### LAB [address] [address] Moody Martinez M.D. [id number] APTT HEPARIN COVERAGEon aPTT Coag (Bld) [Time] 97 s High 23-34 [facility] Comment on above: Order Comment: Thera peutic range for APTT's is 68 - 104 seconds Performed By: #### 4 6848 ####[facility] [address] [address] Moody Martinez M.D. [id number] BASIC METABOLIC PANELon Anion gap [Moles/Vol] 17 mmol/L Normal 10-20 [facility] Comment on above: Order Comment: [facility] has implemented the eGFR calculation approach that does not have a coefficient for race that conforms to the NKF-ASN Task Force Recommendations. Performed By: #### 4 6124 ####[facility] [address] [address] Moody Martinez M.D. [id number] Calcium [Mass/Vol] 8.7 mg/dL Normal 8.4-10.2 [facility] Comment on above: Order Comment: [facility] has implemented the eGFR calculation approach that does not have a coefficient for race that conforms to the NKF-ASN Task Force Recommendations. Performed By: #### 4 6124 #### LAB [address] [id number] Moody Martinez M.D. [id number] Chloride [Moles/Vol] 101 mmol/L Normal 98-108 [facility] Comment on above: Order Comment: [facility] has implemented the eGFR calculation approach that does not have a coefficient for race that conforms to the NKF-ASN Task Force Recommendations. Performed By: #### 4 6124 #### LAB [address] [address] Moody Martinez M.D. [id number] Creatinine [Mass/Vol] 2.16 mg/dL High 0.80-1.30 [facility] Comment on above: Order Comment: [facility] has implemented the eGFR calculation approach that does not have a coefficient for race that conforms to the NKF-ASN Task Force Recommendations. Performed By: #### 4 6124 #### LAB [address] [address] Moody Martinez M.D. [id number] EGFR 30 mL/min/1.73 m2 Low >=60 [facility] Comment on above: Order Comment: [facility] has implemented the eGFR calculation approach that does not have a coefficient for race that conforms to the NKF-ASN Task Force Recommendations. Result Comment: Albin mated GFR was calculated using the 2020 CKD-EPI creatinine equation. Performed By: #### 4 6124 ####[facility] [address] [place], [place] [address] Moody Martinez M.D. [id number] Glucose [Mass/Vol] 170 mg/dL High 65-99 [facility] Comment on above: Order Comment: [facility] has implemented the eGFR calculation approach that does not have a coefficient for race that conforms to the NKF-ASN Task Force Recommendations. Performed By: #### 4 6124 #### LAB [address] [id number] Moody Martinez M.D. [id number] HCO3 (Bld) [Moles/Vol] 25 mmol/L Normal 21-32 [facility] Comment on above: Order Comment: [facility] has implemented the eGFR calculation approach that does not have a coefficient for race that conforms to the NKF-ASN Task Force Recommendations. Performed By: #### 4 6124 #### LAB [address] [address] Moody Martinez M.D. [id number] Potassium [Moles/Vol] 3.7 mmol/L Normal 3.5-5.1 [facility] Comment on above: Order Comment: [facility] has implemented the eGFR calculation approach that does not have a coefficient for race that conforms to the NKF-ASN Task Force Recommendations. Performed By: #### 4 6124 #### LAB [address] [address] Moody Martinez M.D. [id number] Sodium [Moles/Vol] 139 mmol/L Normal 135-145 [facility] Comment on above: Order Comment: [facility] has implemented the eGFR calculation approach that does not have a coefficient for race that conforms to the NKF-ASN Task Force Recommendations. Performed By: #### 4 6124 #### LAB [address] [address] Moody Martinez M.D. [id number] Urea nitrogen [Mass/Vol] 44 mg/dL High 8-25 [facility] Comment on above: Order Comment: [facility] has implemented the eGFR calculation approach that does not have a coefficient for race that conforms to the NKF-ASN Task Force Recommendations. Performed By: #### 4 6192 #### LAB [address] [address] Moody Martinez M.D. [id number] Urea nitrogen/Creatinine [Mass ratio] 20.4 mg/mg High 10.0-20.0 [facility] Comment on above: Order Comment: [facility] has implemented the eGFR calculation approach that does not have a coefficient for race that conforms to the NKF-ASN Task Force Recommendations. Performed By: #### 4 6124 #### LAB [address] [address] Moody Martinez M.D. [id number] CBCon 03-02-2025 AUTO NRBC 0.0 % Normal [facility] Comment on above: Order Comment: Injur y/Trauma or Illness?:Illness/Other How long have you had these symptoms (acute/chronic)?:Acute Reason for exam?:sob History of cancer?:. Surgeries, chemotherapy, or radiation?:cardiac catheterization Type of Exam?:Initial Additional signs and symptoms?:n Performed By: #### 4 [id number] #### LAB [address] [address] Moody Martinez M.D. [id number] AUTO NRBC ABS COUNT 0.00 K/mcL Normal 0.00-0.00 [facility] Comment on above: Order Comment: Injur y/Trauma or Illness?:Illness/Other How long have you had these symptoms (acute/chronic)?:Acute Reason for exam?:sob History of cancer?:. Surgeries, chemotherapy, or radiation?:cardiac catheterization Type of Exam?:Initial Additional signs and symptoms?:n Performed By: #### 4 [id number] #### LAB [address] [address] Moody Martinez M.D. [id number] Erythrocyte distribution width (RBC) [Ratio] 13.4 % Normal 11.6-14.8 [facility] Comment on above: Order Comment: Injur y/Trauma or Illness?:Illness/Other How long have you had these symptoms (acute/chronic)?:Acute Reason for exam?:sob History of cancer?:. Surgeries, chemotherapy, or radiation?:cardiac catheterization Type of Exam?:Initial Additional signs and symptoms?:n Performed By: #### 4 [id number] #### LAB [address] [address] Moody Martinez M.D. [id number] Hematocrit (Bld) [Volume fraction] 31.3 % Low 41.0-53.0 [facility] Comment on above: Order Comment: Injur y/Trauma or Illness?:Illness/Other How long have you had these symptoms (acute/chronic)?:Acute Reason for exam?:sob History of cancer?:. Surgeries, chemotherapy, or radiation?:cardiac catheterization Type of Exam?:Initial Additional signs and symptoms?:n Performed By: #### 4 [id number] #### LAB [address] [address] Moody Martinez M.D. [id number] Hemoglobin (Bld) [Mass/Vol] 10.3 g/dL Low 13.5-17.5 [facility] Comment on above: Order Comment: Injur y/Trauma or Illness?:Illness/Other How long have you had these symptoms (acute/chronic)?:Acute Reason for exam?:sob History of cancer?:. Surgeries, chemotherapy, or radiation?:cardiac catheterization Type of Exam?:Initial Additional signs and symptoms?:n Performed By: #### 4 [id number] #### LAB [address] [address] Moody Martinez M.D. [id number] MCH (RBC) [Entitic mass] 31.0 pg Normal 26.0-34.0 [facility] Comment on above: Order Comment: Injur y/Trauma or Illness?:Illness/Other How long have you had these symptoms (acute/chronic)?:Acute Reason for exam?:sob History of cancer?:. Surgeries, chemotherapy, or radiation?:cardiac catheterization Type of Exam?:Initial Additional signs and symptoms?:n Performed By: #### 4 [id number] #### LAB [address] [address] Moody Martinez M.D. [id number] MCV (RBC) [Entitic vol] 94.3 fL Normal 80.0-100.0 [facility] Comment on above: Order Comment: Injur y/Trauma or Illness?:Illness/Other How long have you had these symptoms (acute/chronic)?:Acute Reason for exam?:sob History of cancer?:. Surgeries, chemotherapy, or radiation?:cardiac catheterization Type of Exam?:Initial Additional signs and symptoms?:n Performed By: #### 4 [id number] #### LAB [address] [address] Moody Martinez M.D. [id number] MEAN CORPUSCULAR HEMOGLOBIN CONC 32.9 g/dL Normal 31.0-37.0 [facility] Comment on above: Order Comment: Injur y/Trauma or Illness?:Illness/Other How long have you had these symptoms (acute/chronic)?:Acute Reason for exam?:sob History of cancer?:. Surgeries, chemotherapy, or radiation?:cardiac catheterization Type of Exam?:Initial Additional signs and symptoms?:n Performed By: #### 4 [id number] #### LAB [address] [address] Moody Martinez M.D. [id number] Platelet mean volume (Bld) [Entitic vol] 11.6 fL Normal 9.4-12.4 [facility] Comment on above: Order Comment: Injur y/Trauma or Illness?:Illness/Other How long have you had these symptoms (acute/chronic)?:Acute Reason for exam?:sob History of cancer?:. Surgeries, chemotherapy, or radiation?:cardiac catheterization Type of Exam?:Initial Additional signs and symptoms?:n Performed By: #### 4 [id number] #### LAB [address] [address] Moody Martinez M.D. [id number] Platelets (Bld) [#/Vol] 176 10*3/uL Normal 150-400 [facility] Comment on above: Order Comment: Injur y/Trauma or Illness?:Illness/Other How long have you had these symptoms (acute/chronic)?:Acute Reason for exam?:sob History of cancer?:. Surgeries, chemotherapy, or radiation?:cardiac catheterization Type of Exam?:Initial Additional signs and symptoms?:n Performed By: #### 4 [id number] #### LAB [address] [address] Moody Martinez M.D. [id number] RBC (Bld) [#/Vol] 3.32 10*6/uL Low 4.50-5.90 [facility] Comment on above: Order Comment: Injur y/Trauma or Illness?:Illness/Other How long have you had these symptoms (acute/chronic)?:Acute Reason for exam?:sob History of cancer?:. Surgeries, chemotherapy, or radiation?:cardiac catheterization Type of Exam?:Initial Additional signs and symptoms?:n Performed By: #### 4 [id number] #### LAB [address] [address] Moody Martinez M.D. [id number] WBC (Bld) [#/Vol] 14.08 10*3/uL High 4.50-11.00 [facility] Comment on above: Order Comment: Injur y/Trauma or Illness?:Illness/Other How long have you had these symptoms (acute/chronic)?:Acute Reason for exam?:sob History of cancer?:. Surgeries, chemotherapy, or radiation?:cardiac catheterization Type of Exam?:Initial Additional signs and symptoms?:n Performed By: #### 4 [id number] #### LAB [address] [address] Moody Martinez M.D. [id number] AUTO NRBC 0.0 % Normal [facility] Comment on above: Performed By: #### 4 [id number] #### LAB [address] [address] Moody Martinez M.D. [id number] AUTO NRBC ABS COUNT 0.00 K/mcL Normal 0.00-0.00 [facility] Comment on above: Performed By: #### 4 [id number] #### LAB [address] [address] Moody Martinez M.D. [id number] Erythrocyte distribution width (RBC) [Ratio] 13.4 % Normal 11.6-14.8 [facility] Comment on above: Performed By: #### 4 [id number] #### LAB [address] [address] Moody Martinez M.D. [id number] Hematocrit (Bld) [Volume fraction] 34.4 % Low 41.0-53.0 [facility] Comment on above: Performed By: #### 4 [id number] #### LAB [address] [address] Moody Martinez M.D. [id number] Hemoglobin (Bld) [Mass/Vol] 11.2 g/dL Low 13.5-17.5 [facility] Comment on above: Performed By: #### 4 [id number] #### LAB [address] [address] Moody Martinez M.D. [id number] MCH (RBC) [Entitic mass] 31.1 pg Normal 26.0-34.0 [facility] Comment on above: Performed By: #### 4 [id number] #### LAB [address] [address] Moody Martinez M.D. [id number] MCV (RBC) [Entitic vol] 95.6 fL Normal 80.0-100.0 [facility] Comment on above: Performed By: #### 4 5218 ####[facility] [address] [address] Moody Martinez M.D. [id number] MEAN CORPUSCULAR HEMOGLOBIN CONC 32.6 g/dL Normal 31.0-37.0 [facility] Comment on above: Performed By: #### 4 [id number] #### LAB [address] [address] Moody Martinez M.D. [id number] Platelet mean volume (Bld) [Entitic vol] 11.4 fL Normal 9.4-12.4 [facility] Comment on above: Performed By: #### 4 [id number] #### LAB [address] [address] Moody Martinez M.D. [id number] Platelets (Bld) [#/Vol] 189 10*3/uL Normal 150-400 [facility] Comment on above: Performed By: #### 4 [id number] #### LAB [address] [address] Moody Martinez M.D. [id number] RBC (Bld) [#/Vol] 3.60 10*6/uL Low 4.50-5.90 [facility] Comment on above: Performed By: #### 4 5218 #### LAB [address] [place], [place] [address] Moody Martinez M.D. [id number] WBC (Bld) [#/Vol] 11.96 10*3/uL High 4.50-11.00 [facility] Comment on above: Performed By: #### 4 [id number] ####[facility] LAB [address] [place], [place] [address] Moody Martinez M.D. [id number] CONSULTon 03-02-2025 CONSULT General Cardiology Inpatient Consult Heart & Vascular [facility] 03/02/2025 Diogenes Garay MD [facility] Patient: Enoc Armando Date of : 1945 (79 y.o.) Referring Provider: Refer to consult order in electronic medical record PCP: Ryley Jeter MD Assessment/Plan: Enoc Armando is a 79 y.o. male with history [...] ARB or Arni given elevated creatinine Elevated troponin/NSTEMI-like ly type II NSTEMI from demand ischemia. Patient [...] plan for further details. Diogenes Garay MD [facility] Non-Invasive Cardiology [facility] Heart and Vascular Subjective Reason for Consultation: NSTEMI History of Present Illness: Enoc Armando is a 79 y.o. male with history [...] elevated troponin/NSTEMI. Patient follows with Dr. Woo small in the clinic. Patient present to the [...] ventricle systolic pressure is 49 mmHg. 10/27/24 C Left Main The vessel is moderate in [...] Skin: Negative. (more content not included)... Normal [facility] ECHOCARDIOGRAM COMPLETEon ECHOCARDIOGRAM COMPLETE Patient Info Name: ENOC ARMANDO Age: 79 years : 1945 Gender: Male Ht: 170 cm Wt: 64 kg BSA: 1.74 m2 HR: 81 bpm BP: 112 / 57 mmHg Heart Rhythm: Sinus Rhythm Technical Quality: Good Exam Date: 03/02/2025 2:27 PM Patient Status: Inpatient Music Writer: Mikel Olvera RCDS Exam Type: ECHOCARDIOGRAM COMPLETE Study Info Indications - Chest pain R07.9 - Chest pain, unspecified Referring Physician: TANISHA Alves; [id number] BMI: 22.08 kg/m2 Summary 1. Left ventricular [...] Factors Hypertension: Yes Dyslipidemia: Yes Myocardial Infarction (AK): No Congestive Heart Failure (CHF): Hx CHF [...] Scoring Index: 1.00 Left Ventricular Outflow Tract Name Value Normal LVOT 2D LVOT Diameter 1.7 cm LVOT Doppler LVOT Peak Velocity 1.0 m/s LVOT Peak Gradient 4 mmHg LVOT Mean Gradient 2 mmHg LVOT VTI 22 cm LVOT VTI/AV VTI Ratio 0.8 LVOT Stroke Volume 49 ml LVOT Stroke Index 28.43 ml/m2 Pulmonic Valve Name Value Normal RVOT Doppler RVOT Peak Velocity 101 cm/s RVOT Peak Gradient 2 mmHg RVOT Mean Gradient 1 mmHg RVOT VTI 23 cm Mitral Valve Name Value Normal MV Doppler MV Peak Velocity 1.17 m/s MV Peak Gradient 8 mmHg MV Mean Gradient 3 mmHg MV VTI 35 cm MV Decel Colbert 390 cm/s2 MV PHT 75 ms MV Area (PHT) 3.0 cm2 4.0-5.0 MV Area (Cont Eq VTI) 1.4 cm2 MV Area Index (Cont Eq VTI) 0.81 cm2/m2 MV DVI 1.61 MV Regurgitation Doppler MR Peak Velocity 5 m/s MR Peak Gradient 91 mmHg MR VTI 139 cm MV Diastolic Function MV E Peak Velocity 0.72 m/s MV A Peak Velocity 1.35 m/s MV E/A 0.5 MV Decel Time 257 ms MV Annular TDI (more content not included)... Normal [facility] MAGNESIUM LEVELon 03-02-2025 Magnesium [Mass/Vol] 2.2 mg/dL Normal 1.6-2.4 [facility] Comment on above: Performed By: #### 4 6109 #### LAB [address] [place] [address] Moody Martinez M.D. [id number] NT PRO BNPon 03-02-2025 Natriuretic peptide B (Bld) [Mass/Vol] 77046 pg/mL High 0-300 [facility] Comment on above: Order Comment: Pride Study Cut-offsRule In:< /= 50 Years >450 pg/mL51 Years - 75 Years >900 pg/mL76 Years - 99 Years >1800 pg/mLRule Out:All patients <300 pg/mL Performed By: #### 4 7395 #### LAB [address] [place], [place] [address] Moody Martinez M.D. [id number] POC GLUCOSE [facility] 025 Glucose [Mass/Vol] 287 mg/dL [address] Comment on above: Performed By: #### 4 6932 #### LAB [address] [address] Moody Martinez M.D. [id number] Glucose [Mass/Vol] 137 mg/dL [address] Comment on above: Performed By: #### 4 6932 #### LAB [address] [address] Moody Martinez M.D. [id number] Glucose [Mass/Vol] 252 mg/dL [address] Comment on above: Performed By: #### 4 6932 #### LAB [address] [address] Moody Martinez M.D. [id number] Glucose [Mass/Vol] 332 mg/dL [address] Comment on above: Performed By: #### 4 6932 #### LAB [address] [address] Moody Martinez M.D. [id number] Glucose [Mass/Vol] 286 mg/dL [address] Comment on above: Performed By: #### 4 6932 #### LAB [address] [address] Moody Martinez M.D. [id number] Glucose [Mass/Vol] 168 mg/dL [address] Comment on above: Performed By: #### L [id number] #### [facility] LAB [address] [id number] Moody Martinez M.D. [id number] Glucose [Mass/Vol] 186 mg/dL High 65-99 [facility] Comment on above: Performed By: #### 4 6932 #### LAB [address] [address] Moody Martinez M.D. [id number] POTASSIUM LEVELon 03-02-2025 Potassium [Moles/Vol] 3.9 mmol/L Normal 3.5-5.1 [facility] Comment on above: Performed By: #### 4 6351 #### LAB [address] [address] Moody Martinez M.D. [id number] TROPONIN X 2 (NOW AND REPEAT IN 2 HOURS)on 03-02-2025 TROPONIN T DELTA CHANGE INTERPRETATION Delta troponin requires at least 2 hours between collections. [facility] Comment on above: Performed By: #### 4 6608 #### LAB [address] [address] Moody Martinez M.D. [id number] TROPONIN T NG/L 1447 ng/L Off scale high <=22 [facility] Comment on above: Performed By: #### 4 6608 #### LAB [address] [address] Moody Martinez M.D. [id number] BASELINE TROPONIN T NG/L 1309 ng/L Off scale high <=22 [facility] Comment on above: Performed By: #### 4 6608 #### LAB [address] [address] Moody Martinez M.D. [id number] TROPONIN T INTERPRETATION Possible acute cardiac injury. [facility] Comment on above: Performed By: #### 4 6608 #### LAB [address] [address] Moody Martinez M.D. [id number] XR CHEST PA/APon 03-02-2025 XR CHEST PA/AP [...] (HCC) J18.9 Pneumonia E11.10 DKA (diabetic ketoacidosis) ([facility]) COMPARISON: 02/28/2025. TECHNIQUE: Single portable semierect view. FINDINGS: Cardiac silhouette and mediastinal contours are stable. No pneumothorax or large pleural effusion. There is development of jobsgpbd-ee-ctyfxy bilateral mixed interstitial and alveolar opacities in both lungs consistent with pulmonary edema; although, underlying pneumonia/aspiration is not excluded. IMPRESSION: Development of mueoqtwb-wq-fdwyym mixed interstitial and alveolar opacities in both lungs consistent with pulmonary edema. Underlying pneumonia/aspiration not excluded. No pneumothorax or large pleural effusion. JAR/trw Workstation ID: [id number] Dictated by: KAHLIL VARGHESE on WedMarch 02, 2025 2:36:56 PM EDT Transcribed by: AFUA RALPH on WedMarch 02, 2025 3:15:52 PM EDT Finalized by: KAHLIL VARGHESE on WedMarch 02, 2025 3:23:59 PM EDT [facility] Comment on above: Order Comment: Injur y/Trauma or Illness?:Illness/OtherHow long have you had these symptoms (acute/chronic)?:AcuteReason for exam?:SOBHistory of cancer?:.Surgeries, chemotherapy, or radiation?:cardiac catheterizationType of Exam?:InitialAdditional signs and symptoms?:. BASIC METABOLIC PANELon 05-0 Anion gap [Moles/Vol] 15 mmol/L Normal 10-20 [facility] Comment on above: Order Comment: [facility] has implemented the eGFR calculation approach that does not have a coefficient for race that conforms to the NKF-ASN Task Force Recommendations. Performed By: #### 4 6124 ####[facility] LAB [address] [place], [place] [address] Moody Martinez M.D. [id number] Calcium [Mass/Vol] 8.7 mg/dL Normal 8.4-10.2 [facility] Comment on above: Order Comment: [facility] has implemented the eGFR calculation approach that does not have a coefficient for race that conforms to the NKF-ASN Task Force Recommendations. Performed By: #### 4 6124 #### LAB [address] [place], [place] [address] Moody Martinez M.D. [id number] Chloride [Moles/Vol] 104 mmol/L Normal 98-108 [facility] Comment on above: Order Comment: [facility] has implemented the eGFR calculation approach that does not have a coefficient for race that conforms to the NKF-ASN Task Force Recommendations. Performed By: #### 4 6124 #### LAB [address] [id number] Moody Martinez M.D. [id number] Creatinine [Mass/Vol] 2.49 mg/dL High 0.80-1.30 [facility] Comment on above: Order Comment: [facility] has implemented the eGFR calculation approach that does not have a coefficient for race that conforms to the NKF-ASN Task Force Recommendations. Performed By: #### 4 6124 #### LAB [address] [id number] Moody Martinez M.D. [id number] EGFR 25 mL/min/1.73 m2 Low >=60 [facility] Comment on above: Order Comment: [facility] has implemented the eGFR calculation approach that does not have a coefficient for race that conforms to the NKF-ASN Task Force Recommendations. Result Comment: Albin mated GFR was calculated using the 2020 CKD-EPI creatinine equation. Performed By: #### 4 6124 #### LAB [address] [id number] Moody Martinez M.D. [id number] Glucose [Mass/Vol] 86 mg/dL Normal 65-99 [facility] Comment on above: Order Comment: [facility] has implemented the eGFR calculation approach that does not have a coefficient for race that conforms to the NKF-ASN Task Force Recommendations. Performed By: #### 4 6124 #### LAB [address] [address] Moody Martinez M.D. [id number] HCO3 (Bld) [Moles/Vol] 26 mmol/L Normal 21-32 [facility] Comment on above: Order Comment: [facility] has implemented the eGFR calculation approach that does not have a coefficient for race that conforms to the NKF-ASN Task Force Recommendations. Performed By: #### 4 6124 ####[facility] LAB [address] [place], [place] [address] Moody Martinez M.D. [id number] Potassium [Moles/Vol] 4.2 mmol/L Normal 3.5-5.1 [facility] Comment on above: Order Comment: [facility] has implemented the eGFR calculation approach that does not have a coefficient for race that conforms to the NKF-ASN Task Force Recommendations. Performed By: #### 4 6124 #### LAB [address] [address] Moody Martinez M.D. [id number] Sodium [Moles/Vol] 141 mmol/L Normal 135-145 [facility] Comment on above: Order Comment: [facility] has implemented the eGFR calculation approach that does not have a coefficient for race that conforms to the NKF-ASN Task Force Recommendations. Performed By: #### 4 6124 ####[facility] LAB [address] [address] Moody Martinez M.D. [id number] Urea nitrogen [Mass/Vol] 47 mg/dL High 8-25 [facility] Comment on above: Order Comment: [facility] has implemented the eGFR calculation approach that does not have a coefficient for race that conforms to the NKF-ASN Task Force Recommendations. Performed By: #### 4 6124 ####[facility] LAB [address] [address] Moody Martinez M.D. [id number] Urea nitrogen/Creatinine [Mass ratio] 18.9 mg/mg Normal 10.0-20.0 [facility] Comment on above: Order Comment: [facility] has implemented the eGFR calculation approach that does not have a coefficient for race that conforms to the NKF-ASN Task Force Recommendations. Performed By: #### 4 6124 #### LAB [address] [address] Moody Martinez M.D. [id number] CBCon 03-01-2025 AUTO NRBC 0.0 % Normal [facility] Comment on above: Performed By: #### 4 5218 ####[facility] LAB [address] [address] Moody Martinez M.D. [id number] AUTO NRBC ABS COUNT 0.00 K/mcL Normal 0.00-0.00 [facility] Comment on above: Performed By: #### 4 5218 #### LAB [address] [address] Moody Martinez M.D. [id number] Erythrocyte distribution width (RBC) [Ratio] 13.7 % Normal 11.6-14.8 [facility] Comment on above: Performed By: #### 4 5218 #### LAB [address] [address] Moody Martinez M.D. [id number] Hematocrit (Bld) [Volume fraction] 29.8 % Low 41.0-53.0 [facility] Comment on above: Performed By: #### 4 5218 #### LAB [address] [address] Moody Martinez M.D. [id number] Hemoglobin (Bld) [Mass/Vol] 9.9 g/dL Low 13.5-17.5 [facility] Comment on above: Performed By: #### 4 5218 #### LAB [address] [address] Moody Martinez M.D. [id number] MCH (RBC) [Entitic mass] 31.0 pg Normal 26.0-34.0 [facility] Comment on above: Performed By: #### 4 5218 #### LAB [address] [id number] Moody Martinez M.D. [id number] MCV (RBC) [Entitic vol] 93.4 fL Normal 80.0-100.0 [facility] Comment on above: Performed By: #### 4 5218 #### LAB [address] [address] Moody Martinez M.D. [id number] MEAN CORPUSCULAR HEMOGLOBIN CONC 33.2 g/dL Normal 31.0-37.0 [facility] Comment on above: Performed By: #### 4 5218 #### LAB [address] [address] Moody Martinez M.D. [id number] Platelet mean volume (Bld) [Entitic vol] 10.9 fL Normal 9.4-12.4 [facility] Comment on above: Performed By: #### 4 5218 #### LAB [address] [address] Moody Martinez M.D. [id number] Platelets (Bld) [#/Vol] 186 10*3/uL Normal 150-400 [facility] Comment on above: Performed By: #### 4 5218 #### LAB [address] [address] Moody Martinez M.D. [id number] RBC (Bld) [#/Vol] 3.19 10*6/uL Low 4.50-5.90 [facility] Comment on above: Performed By: #### 4 5218 #### LAB [address] [address] Moody Martinez M.D. [id number] WBC (Bld) [#/Vol] 15.37 10*3/uL High 4.50-11.00 [facility] Comment on above: Performed By: #### 4 5218 #### LAB [address] [address] Moody Martinez M.D. [id number] MAGNESIUM LEVELon 03-01-2025 Magnesium [Mass/Vol] 2.1 mg/dL Normal 1.6-2.4 [facility] Comment on above: Performed By: #### 4 6109 ####[facility] LAB [address] [address] Moody Martinez M.D. [id number] PHOSPHORUSon 03-01-2025 Phosphate [Mass/Vol] 4.3 mg/dL High 2.3-3.7 [facility] Comment on above: Performed By: #### 4 6299 ####[facility] LAB [address] [address] Moody Martinez M.D. [id number] POC GLUCOSE - [facility] 025 Glucose [Mass/Vol] 249 mg/dL High [address] [place] [address] Comment on above: Performed By: #### 4 6932 ####[facility] LAB [address] [address] Moody Martinez M.D. [id number] Glucose [Mass/Vol] 79 mg/dL Normal [address] [place] [address] Comment on above: Performed By: #### 4 6932 ####[facility] LAB [address] [address] Moody Martinez M.D. [id number] Glucose [Mass/Vol] 237 mg/dL High [address] [place] [address] Comment on above: Performed By: #### 4 6932 ####[facility] LAB [address] [address] Moody Martinez M.D. [id number] Glucose [Mass/Vol] 85 mg/dL Normal [address] [place] [address] Comment on above: Performed By: #### 4 6959 ####[facility] [address] [address] Moody Martinez M.D. [id number] Glucose [Mass/Vol] 167 mg/dL High [address] [place] [address] Comment on above: Performed By: #### 4 6930 ####[facility] LAB [address] [place] [address] Moody Martinez M.D. [id number] BASIC METABOLIC PANELon - Anion gap [Moles/Vol] 16 mmol/L Normal 10-20 [facility] Comment on above: Order Comment: [facility] has implemented the eGFR calculation approach that does not have a coefficient for race that conforms to the NKF-ASN Task Force Recommendations. Performed By: #### 4 4014 #### LAB [address] [place], [place] [address] Moody Martinez M.D. [id number] Calcium [Mass/Vol] 9.5 mg/dL Normal 8.4-10.2 [facility] Comment on above: Order Comment: [facility] has implemented the eGFR calculation approach that does not have a coefficient for race that conforms to the NKF-ASN Task Force Recommendations. Performed By: #### 4 4014 #### LAB [address] [place], [place] [address] Moody Martinez M.D. [id number] Chloride [Moles/Vol] 103 mmol/L Normal 98-108 [facility] Comment on above: Order Comment: [facility] has implemented the eGFR calculation approach that does not have a coefficient for race that conforms to the NKF-ASN Task Force Recommendations. Performed By: #### 4 4014 #### LAB [address] [address] Moody Martinez M.D. [id number] Creatinine [Mass/Vol] 2.61 mg/dL High 0.80-1.30 [facility] Comment on above: Order Comment: [facility] has implemented the eGFR calculation approach that does not have a coefficient for race that conforms to the NKF-ASN Task Force Recommendations. Performed By: #### 4 4014 #### LAB [address] [address] Moody Martinez M.D. [id number] EGFR 24 mL/min/1.73 m2 Low >=60 [facility] Comment on above: Order Comment: [facility] has implemented the eGFR calculation approach that does not have a coefficient for race that conforms to the NKF-ASN Task Force Recommendations. Result Comment: Albin mated GFR was calculated using the 2020 CKD-EPI creatinine equation. Performed By: #### 4 4014 #### [facility] [address] [address] Moody Martinez M.D. [id number] Glucose [Mass/Vol] 138 mg/dL High 65-99 [facility] Comment on above: Order Comment: [facility] has implemented the eGFR calculation approach that does not have a coefficient for race that conforms to the NKF-ASN Task Force Recommendations. Performed By: #### 4 4014 #### [facility] LAB [address] [address] Moody Martinez M.D. [id number] HCO3 (Bld) [Moles/Vol] 23 mmol/L Normal 21-32 [facility] Comment on above: Order Comment: [facility] has implemented the eGFR calculation approach that does not have a coefficient for race that conforms to the NKF-ASN Task Force Recommendations. Performed By: #### 4 4014 #### LAB [address] [address] Moody Martinez M.D. [id number] Potassium [Moles/Vol] 4.0 mmol/L Normal 3.5-5.1 [facility] Comment on above: Order Comment: [facility] has implemented the eGFR calculation approach that does not have a coefficient for race that conforms to the NKF-ASN Task Force Recommendations. Performed By: #### 4 4014 #### LAB [address] [address] Moody Martinez M.D. [id number] Sodium [Moles/Vol] 138 mmol/L Normal 135-145 [facility] Comment on above: Order Comment: [facility] has implemented the eGFR calculation approach that does not have a coefficient for race that conforms to the NKF-ASN Task Force Recommendations. Performed By: #### 4 4014 #### [facility] LAB [address] [address] Moody Martinez M.D. [id number] Urea nitrogen [Mass/Vol] 50 mg/dL High 8-25 [facility] Comment on above: Order Comment: [facility] has implemented the eGFR calculation approach that does not have a coefficient for race that conforms to the NKF-ASN Task Force Recommendations. Performed By: #### 4 4014 #### LAB [address] [id number] Moody Martinez M.D. [id number] Urea nitrogen/Creatinine [Mass ratio] 19.2 mg/mg Normal 10.0-20.0 [facility] Comment on above: Order Comment: [facility] has implemented the eGFR calculation approach that does not have a coefficient for race that conforms to the NKF-ASN Task Force Recommendations. Performed By: #### 4 4014 #### LAB [address] [address] Moody Martinez M.D. 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 [id number] Chloride [Moles/Vol] 100 mmol/L Normal 98-108 [facility] Comment on above: Order Comment: Injur y/Trauma or Illness?:Illness/Other How long have you had these symptoms (acute/chronic)?:Acute Reason for exam?:cross clamp of aorta for CPB Type of Exam?:Initial Additional signs and symptoms?:cp Performed By: #### 4 6173 #### LAB [address] [address] Moody Martinez M.D. 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 Performed By: #### 4 6198 #### LAB [address] [address] Moody Martinez M.D. [id number] Glucose [Mass/Vol] 426 mg/dL Off scale high 65-99 [facility] Comment on above: Order Comment: Injur y/Trauma or Illness?:Illness/Other How long have you had these symptoms (acute/chronic)?:Acute Reason for exam?:cross clamp of aorta for CPB Type of Exam?:Initial Additional signs and symptoms?:cp Performed By: #### 4 6142 #### LAB [address] [address] Moody Martinez M.D. 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 [id number] Potassium [Moles/Vol] 4.0 mmol/L Normal 3.5-5.1 [facility] Comment on above: Order Comment: Injur y/Trauma or Illness?:Illness/Other How long have you had these symptoms (acute/chronic)?:Acute Reason for exam?:cross clamp of aorta for CPB Type of Exam?:Initial Additional signs and symptoms?:cp Performed By: #### 4 6124 #### LAB [address] [address] Moody Martinez M.D. [id number] Sodium [Moles/Vol] 137 mmol/L Normal 135-145 [facility] Comment on above: Order Comment: Injur y/Trauma or Illness?:Illness/Other How long have you had these symptoms (acute/chronic)?:Acute Reason for exam?:cross clamp of aorta for CPB Type of Exam?:Initial Additional signs and symptoms?:cp Performed By: #### 4 6124 #### LAB [address] [address] Moody Martinez M.D. [id number] Urea nitrogen [Mass/Vol] 51 mg/dL High 8- [facility] Comment on above: Order Comment: Injur y/Trauma or Illness?:Illness/Other How long have you had these symptoms (acute/chronic)?:Acute Reason for exam?:cross clamp of aorta for CPB Type of Exam?:Initial Additional signs and symptoms?:cp Performed By: #### 4 6174 #### LAB [address] [address] Moody Martinez M.D. [id number] Urea nitrogen/Creatinine [Mass ratio] 19.0 mg/mg Normal 10.0-20.0 [facility] Comment on above: Order Comment: Injur y/Trauma or Illness?:Illness/Other How long have you had these symptoms (acute/chronic)?:Acute Reason for exam?:cross clamp of aorta for CPB Type of Exam?:Initial Additional signs and symptoms?:cp Performed By: #### 4 6195 #### LAB [address] [address] Moody Martinez M.D. [id number] Anion gap [Moles/Vol] 27 mmol/L High 10-20 [facility] Comment on above: Order Comment: [facility] has implemented the eGFR calculation approach that does not have a coefficient for race that conforms to the NKF-ASN Task Force Recommendations. Performed By: #### 4 6124 #### LAB [address] [address] Moody Martinez M.D. [id number] Calcium [Mass/Vol] 9.6 mg/dL Normal 8.4-10.2 [facility] Comment on above: Order Comment: [facility] has implemented the eGFR calculation approach that does not have a coefficient for race that conforms to the NKF-ASN Task Force Recommendations. Performed By: #### 4 6124 #### LAB [address] [address] Moody Martinez M.D. [id number] Chloride [Moles/Vol] 97 mmol/L Low 98-108 [facility] Comment on above: Order Comment: [facility] has implemented the eGFR calculation approach that does not have a coefficient for race that conforms to the NKF-ASN Task Force Recommendations. Performed By: #### 4 6124 #### LAB [address] [address] Moody Martinez M.D. [id number] Creatinine [Mass/Vol] 2.72 mg/dL High 0.80-1.30 [facility] Comment on above: Order Comment: [facility] has implemented the eGFR calculation approach that does not have a coefficient for race that conforms to the NKF-ASN Task Force Recommendations. Performed By: #### 4 6192 #### LAB [address] [address] Moody Martinez M.D. [id number] EGFR 23 mL/min/1.73 m2 Low >=60 [facility] Comment on above: Order Comment: [facility] has implemented the eGFR calculation approach that does not have a coefficient for race that conforms to the NKF-ASN Task Force Recommendations. Result Comment: Albin mated GFR was calculated using the 2020 CKD-EPI creatinine equation. Performed By: #### 4 6124 ####[facility] LAB [address] [address] Moody Martinez M.D. [id number] Glucose [Mass/Vol] 529 mg/dL Off scale high 65-99 [facility] Comment on above: Order Comment: [facility] has implemented the eGFR calculation approach that does not have a coefficient for race that conforms to the NKF-ASN Task Force Recommendations. Performed By: #### 4 6124 ####[facility] [address] [address] Moody Martinez M.D. [id number] HCO3 (Bld) [Moles/Vol] 17 mmol/L Low 21-32 [facility] Comment on above: Order Comment: [facility] has implemented the eGFR calculation approach that does not have a coefficient for race that conforms to the NKF-ASN Task Force Recommendations. Performed By: #### 4 6124 #### LAB [address] [address] Moody Martinez M.D. [id number] Potassium [Moles/Vol] 4.5 mmol/L Normal 3.5-5.1 [facility] Comment on above: Order Comment: [facility] has implemented the eGFR calculation approach that does not have a coefficient for race that conforms to the NKF-ASN Task Force Recommendations. Performed By: #### 4 6124 ####[facility] LAB [address] [address] Moody Martinez M.D. [id number] Sodium [Moles/Vol] 136 mmol/L Normal 135-145 [facility] Comment on above: Order Comment: [facility] has implemented the eGFR calculation approach that does not have a coefficient for race that conforms to the NKF-ASN Task Force Recommendations. Performed By: #### 4 6124 #### LAB [address] [place], [place] [address] Moody Martinez M.D. [id number] Urea nitrogen [Mass/Vol] 52 mg/dL High 8- [facility] Comment on above: Order Comment: [facility] has implemented the eGFR calculation approach that does not have a coefficient for race that conforms to the NKF-ASN Task Force Recommendations. Performed By: #### 4 6124 #### LAB [address] [address] Moody Martinez M.D. [id number] Urea nitrogen/Creatinine [Mass ratio] 19.1 mg/mg Normal 10.0-20.0 [facility] Comment on above: Order Comment: [facility] has implemented the eGFR calculation approach that does not have a coefficient for race that conforms to the NKF-ASN Task Force Recommendations. Performed By: #### 4 6124 #### LAB [address] [address] Moody Martinez M.D. [id number] Anion gap [Moles/Vol] 28 mmol/L High 10-20 [facility] Comment on above: Order Comment: Injur y/Trauma or Illness?:Illness/Other How long have you had these symptoms (acute/chronic)?:Acute Reason for exam?:sob History of cancer?:. Surgeries, chemotherapy, or radiation?:cardiac catheterization Type of Exam?:Initial Additional signs and symptoms?:n Performed By: #### 4 6124 #### LAB [address] [id number] Moody Martinez M.D. [id number] Calcium [Mass/Vol] 9.6 mg/dL Normal 8.4-10.2 [facility] Comment on above: Order Comment: Injur y/Trauma or Illness?:Illness/Other How long have you had these symptoms (acute/chronic)?:Acute Reason for exam?:sob History of cancer?:. Surgeries, chemotherapy, or radiation?:cardiac catheterization Type of Exam?:Initial Additional signs and symptoms?:n Performed By: #### 4 6162 #### LAB [address] [address] Moody Martinez M.D. [id number] Chloride [Moles/Vol] 97 mmol/L Low 98-108 [facility] Comment on above: Order Comment: Injur y/Trauma or Illness?:Illness/Other How long have you had these symptoms (acute/chronic)?:Acute Reason for exam?:sob History of cancer?:. Surgeries, chemotherapy, or radiation?:cardiac catheterization Type of Exam?:Initial Additional signs and symptoms?:n Performed By: #### 4 6124 #### LAB [address] [address] Moody Martinez M.D. [id number] Creatinine [Mass/Vol] 2.66 mg/dL High 0.80-1.30 [facility] Comment on above: Order Comment: Injur y/Trauma or Illness?:Illness/Other How long have you had these symptoms (acute/chronic)?:Acute Reason for exam?:sob History of cancer?:. Surgeries, chemotherapy, or radiation?:cardiac catheterization Type of Exam?:Initial Additional signs and symptoms?:n Performed By: #### 4 6139 #### LAB [address] [address] Moody Martinez M.D. [id number] EGFR 23 mL/min/1.73 m2 Low >=60 [facility] Comment on above: Order Comment: Injur y/Trauma or Illness?:Illness/Other How long have you had these symptoms (acute/chronic)?:Acute Reason for exam?:sob History of cancer?:. Surgeries, chemotherapy, or radiation?:cardiac catheterization Type of Exam?:Initial Additional signs and symptoms?:n Result Comment: Albin mated GFR was calculated using the 2020 CKD-EPI creatinine equation. Performed By: #### 4 6171 #### LAB [address] [address] Moody Martinez M.D. [id number] Glucose [Mass/Vol] 514 mg/dL Off scale high 65-99 [facility] Comment on above: Order Comment: Injur y/Trauma or Illness?:Illness/Other How long have you had these symptoms (acute/chronic)?:Acute Reason for exam?:sob History of cancer?:. Surgeries, chemotherapy, or radiation?:cardiac catheterization Type of Exam?:Initial Additional signs and symptoms?:n Performed By: #### 4 6188 #### LAB [address] [address] Moody Martinez M.D. [id number] HCO3 (Bld) [Moles/Vol] 18 mmol/L Low 21-32 [facility] Comment on above: Order Comment: Injur y/Trauma or Illness?:Illness/Other How long have you had these symptoms (acute/chronic)?:Acute Reason for exam?:sob History of cancer?:. Surgeries, chemotherapy, or radiation?:cardiac catheterization Type of Exam?:Initial Additional signs and symptoms?:n Performed By: #### 4 6129 #### LAB [address] [address] Moody Martinez M.D. [id number] Potassium [Moles/Vol] 5.9 mmol/L High 3.5-5.1 [facility] Comment on above: Order Comment: Injur y/Trauma or Illness?:Illness/Other How long have you had these symptoms (acute/chronic)?:Acute Reason for exam?:sob History of cancer?:. Surgeries, chemotherapy, or radiation?:cardiac catheterization Type of Exam?:Initial Additional signs and symptoms?:n Result Comment: Slig htly Hemolyzed Performed By: #### 4 6131 #### LAB [address] [address] Moody Martinez M.D. [id number] Sodium [Moles/Vol] 137 mmol/L Normal 135-145 [facility] Comment on above: Order Comment: Injur y/Trauma or Illness?:Illness/Other How long have you had these symptoms (acute/chronic)?:Acute Reason for exam?:sob History of cancer?:. Surgeries, chemotherapy, or radiation?:cardiac catheterization Type of Exam?:Initial Additional signs and symptoms?:n Performed By: #### 4 6148 #### LAB [address] [address] oMody Martinez M.D. [id number] Urea nitrogen [Mass/Vol] 50 mg/dL High 8-25 [facility] Comment on above: Order Comment: Injur y/Trauma or Illness?:Illness/Other How long have you had these symptoms (acute/chronic)?:Acute Reason for exam?:sob History of cancer?:. Surgeries, chemotherapy, or radiation?:cardiac catheterization Type of Exam?:Initial Additional signs and symptoms?:n Performed By: #### 4 6124 #### LAB [address] [address] Moody Martinez M.D. [id number] Urea nitrogen/Creatinine [Mass ratio] 18.8 mg/mg Normal 10.0-20.0 [facility] Comment on above: Order Comment: Injur y/Trauma or Illness?:Illness/Other How long have you had these symptoms (acute/chronic)?:Acute Reason for exam?:sob History of cancer?:. Surgeries, chemotherapy, or radiation?:cardiac catheterization Type of Exam?:Initial Additional signs and symptoms?:n Performed By: #### 4 6124 ####[facility] [address] [address] Moody Martinez M.D. [id number] BETA-HYDROXYBUTYRATEon 02-28 BETA-HYDROXYBUTYRATE < Normal 0.0-0.3 [facility] Comment on above: Performed By: #### 4 5139 #### LAB [address] [address] Moody Martinez M.D. [id number] BETA-HYDROXYBUTYRATE 1.1 mmol/L High 0.0-0.3 [facility] Comment on above: Performed By: #### 4 5134 #### LAB [address] [address] Moody Martinez M.D. [id number] BETA-HYDROXYBUTYRATE 3.3 mmol/L High 0.0-0.3 [facility] Comment on above: Performed By: #### 4 4014 #### LAB [address] [address] Moody Martinez M.D. [id number] BETA-HYDROXYBUTYRATE 3.3 mmol/L High 0.0-0.3 [facility] Comment on above: Performed By: #### 4 4014 #### LAB [address] [address] Moody Martinez M.D. [id number] BLOOD CULTURE AEROBIC/ANAERO BICon 02-28-2025 BLOOD CULTURE AEROBIC/ANAEROBIC BLOOD CULTURE No Growth after 5 days [facility] Comment on above: Performed By: #### 4 4014 #### LAB [address] [address] Moody Martinez M.D. [id number] Performed By: #### 4 4014 #### LAB [address] [address] Moody Martinez M.D. [id number] CBC WITH AUTO DIFFERENTIALon 02-28-2025 AUTO NRBC 0.0 % [facility] Comment on above: Performed By: #### L [id number] ####[facility] [address] [address] Moody Martinez M.D. [id number] AUTO NRBC ABS COUNT 0.00 K/mcL Normal 0.00-0.00 [facility] Comment on above: Performed By: #### L [id number] #### LAB [address] [address] Moody Martinez M.D. [id number] BASOPHILS ABSOLUTE COUNT 0.05 K/mcL Normal 0.00-0.30 [facility] Comment on above: Performed By: #### L [id number] #### LAB [address] [address] Moody Martinez M.D. [id number] Basophils/100 WBC (Bld) 0.3 % [facility] Comment on above: Performed By: #### L [id number] #### LAB [address] [address] Moody Martinez M.D. [id number] Eosinophils (Bld) [#/Vol] 0.00 10*3/uL Normal 0.00-0.5 0 [facility] Comment on above: Performed By: #### L [id number] #### LAB [address] [address] Moody Martinez M.D. [id number] Eosinophils/100 WBC (Bld) 0.0 % Normal [facility] Comment on above: Performed By: #### L [id number] #### LAB [address] [address] Moody Martinez M.D. [id number] Erythrocyte distribution width (RBC) [Ratio] 13.5 % Normal 11.6-14.8 [facility] Comment on above: Performed By: #### L [id number] #### LAB [address] [address] Moody Martinez M.D. [id number] Hematocrit (Bld) [Volume fraction] 40.2 % Low 41.0-53.0 [facility] Comment on above: Performed By: #### L [id number] #### LAB [address] [address] Moody Martinez M.D. [id number] Hemoglobin (Bld) [Mass/Vol] 13.1 g/dL Low 13.5-17.5 [facility] Comment on above: Performed By: #### L [id number] #### LAB [address] [place] [address] Moody Martinez M.D. [id number] IG ABSOLUTE 0.16 K/mcL Normal 0.00-0.30 [facility] Comment on above: Performed By: #### L [id number] #### LAB [address] [place] [address] Moody Martinez M.D. [id number] IG PERCENT 0.80 % Normal [facility] Comment on above: Result Comment: The IG parameter is the percentage of metamyelocytes, myelocytes and promyelocytes. An immature granulocyte count (IG) of 1% or more suggests the possibility of infection, an IG count of 3% is very likely related to an infection. Performed By: #### L [id number] #### LAB [address] [address] Moody Martinez M.D. [id number] Lymphocytes (Bld) [#/Vol] 1.13 10*3/uL Normal 0.90-4.0 0 [facility] Comment on above: Performed By: #### L [id number] #### LAB [address] [address] Moody Martinez M.D. [id number] Lymphocytes/100 WBC (Bld) 6.0 % Normal [facility] Comment on above: Performed By: #### L [id number] #### LAB [address] [address] Moody Martinez M.D. [id number] MCH (RBC) [Entitic mass] 30.8 pg Normal 26.0-34.0 [facility] Comment on above: Performed By: #### L [id number] #### LAB [address] [address] Moody Martinez M.D. [id number] MCV (RBC) [Entitic vol] 94.6 fL Normal 80.0-100.0 [facility] Comment on above: Performed By: #### L [id number] #### LAB [address] [place] [address] Moody Martinez M.D. [id number] MEAN CORPUSCULAR HEMOGLOBIN CONC 32.6 g/dL Normal 31.0-37.0 [facility] Comment on above: Performed By: #### L [id number] #### LAB [address] [address] Moody Martinez M.D. [id number] Monocytes (Bld) [#/Vol] 0.91 10*3/uL High 0.30-0.90 [facility] Comment on above: Performed By: #### L [id number] #### LAB [address] [place] [address] Moody Martinez M.D. [id number] Monocytes/100 WBC (Bld) 4.8 % Normal [facility] Comment on above: Performed By: #### L [id number] #### LAB [address] [address] Moody Martinez M.D. [id number] NEUTROPHILS ABSOLUTE COUNT 16.63 K/mcL High 1.70-7.00 [facility] Comment on above: Performed By: #### L [id number] #### LAB [address] [address] Moody Martinez M.D. [id number] Neutrophils/100 WBC (Bld) 88.1 % Normal [facility] Comment on above: Performed By: #### L [id number] #### LAB [address] [address] Moody Martinez M.D. [id number] Platelet mean volume (Bld) [Entitic vol] 11.1 fL Normal 9.4-12.4 [facility] Comment on above: Performed By: #### L [id number] #### LAB [address] [address] Moody Martinez M.D. [id number] Platelets (Bld) [#/Vol] 258 10*3/uL Normal 150-400 [facility] Comment on above: Performed By: #### L [id number] #### LAB [address] [address] Moody Martinez M.D. [id number] RBC (Bld) [#/Vol] 4.25 10*6/uL Low 4.50-5.90 [facility] Comment on above: Performed By: #### L [id number] ####[facility] [address] [address] Moody Martinez M.D. [id number] WBC (Bld) [#/Vol] 18.88 10*3/uL High 4.50-11.00 [facility] Comment on above: Performed By: #### L [id number] #### LAB [address] [address] Moody Martinez M.D. [id number] COVID-19/INFLUENZA A,B MOLEC ULARon 02-28-2025 SARS-CoV-2 (COVID-19) Ab IA Ql SARS-COV-2 (FERDINAND) Not Detected INFLUENZA A (FERDINAND) Not Detected INFLUENZA B (FERDINAND) Not Detected Normal Not Detected [facility] Comment on above: Performed By: #### L [id number] #### LAB [address] [place], [place] [address] Moody Martinez M.D. [id number] CRP, INFLAMMATIONon 02-29-20 25 CRP (INFLAMMATION) < Normal 0.0-10.0 [facility] Comment on above: Performed By: #### 4 5334 #### LAB [address] [place], [place] [address] Moody Martinez M.D. [id number] D-DIMER, QUANTITATIVEon 02-01 D-DIMER QUANTITATIVE 1.67 mcg/mL FEU High 0.27-0.49 [facility] Comment on above: Order Comment: A D-d [...] By: #### 4 5434 #### LAB [address] [place], [place] [address] Moody Martinez M.D. [id number] ED Procedureon 02-28-2025 ED Procedure ECG 12 Lead Date/Time: 02/28/2025 4:33 AM Performed by: Conchita Yañez MD Authorized by: Conchita Yañez MD Interpreted by ED attending physician Rhythm: sinus rhythm and sinus tachycardia BPM: 103 Clinical impression: sinus tachycardia Comments: MN interval 144 QRS duration 90 QTc 437 AUTHENTICATED BY CONCHITA YAÑEZ, ON 02/28/2025 04:33:26 Normal [facility] ED Procedure EKG 12-lead Date/Time: 02/28/2025 3:26 AM Performed by: Conchita Yañez MD Authorized by: Conchita Yañez MD Interpreted by ED attending physician Rhythm: sinus rhythm BPM: 88 Comments: MN interval 162 QRS duration 102 QTc 491 T wave inversion in lead III and aVF as well as V5 V6 AUTHENTICATED BY CONCHITA YAÑEZ, ON 02/28/2025 03:26:34 Normal [facility] ED Prov Noteon 02-28-2025 ED Prov Note [facility] ATTENDING NOTE: NAME: Enoc Armando CSN: [id number] 79 y.o. PCP: Ryley Jeter MD History: [...] Procedure Laterality Date CATARACT EXT/ECCE Bilateral 12/2012,07/2014 MN CATH PLMT L HRT & ARTS W/NJX & ANGIO IMG S&I N/A 10/27/2024 Procedure: Coronary Angiogram; Surgeon: Elías Rodriguez MD; Location: [facility] LONG DISTANCE OPERATOR; Service: Cardiovascular MN CATH PLMT L HRT & ARTS W/NJX & ANGIO IMG S&I N/A 10/27/2024 Procedure: Left Heart Cath; Surgeon: Elías Rodriguez MD; Location: [facility] LONG DISTANCE OPERATOR; Service: Cardiovascular SKIN CANCER EXCISION 09/2021 L [...] -- 02/28 (more content not included)... Normal [facility] HEMOGLOBIN A1Con 02-28-2025 Glucose [Mass/Vol] 171 mg/dL High 74-114 [facility] Comment on above: Performed By: #### 4 8202 #### LAB [address] [place], [place] [address] Moody Martinez M.D. [id number] HbA1c (Bld) [Mass fraction] 7.6 % High 4.2-5.6 [facility] Comment on above: Performed By: #### 4 8202 #### LAB [address] [place], [place] [address] Moody Martinez M.D. [id number] LACTIC ACID, PLASMAon 2024 LACTIC ACID, PLASMA 2.9 mmol/L High 0.6-2.0 [facility] Comment on above: Performed By: #### 4 4014 #### LAB [address] [place] [address] Moody Martinez M.D. [id number] LEGIONELLA ANTIGEN, URINEon 02-28-2025 LEGIONELLA ANTIGEN, URINE LEGIONELLA ANT IGEN Negative for Legionella antigen COMMENT: Results may be affected if patient is on diuretics. INTERPRETATION OF RESULTS: Test detects Legionella pneumophilia serogroup 1 antigens in urine. Legionnaires disease cannot be ruled out since other serogroups and species may also cause disease. Normal [facility] Comment on above: Performed By: #### 4 4090 #### LAB [address] [place] [address] Moody Martinez M.D. [id number] MRSA DNA AMPLIFIED PROBEon 0 02-28-2025 MRSA DNA AMPLIFIED PROBE Negative Normal Not Detected, MRSA NEGATIVE [facility] Comment on above: Performed By: #### 4 8061 #### LAB [address] [place] [address] Moody Martinez M.D. [id number] NT PRO BNPon 02-28-2025 Natriuretic peptide B (Bld) [Mass/Vol] 9634 pg/mL High 0-300 [facility] Comment on above: Order Comment: Injur y/Trauma or Illness?:Illness/Other How long have you had these symptoms (acute/chronic)?:Acute Reason for exam?:sob History of cancer?:. Surgeries, chemotherapy, or radiation?:cardiac catheterization Type of Exam?:Initial Additional signs and symptoms?:n Performed By: #### 4 7395 #### LAB [address] [place] [address] Moody Martinez M.D. [id number] Natriuretic peptide B (Bld) [Mass/Vol] 3396 pg/mL High 0-300 [facility] Comment on above: Order Comment: Pride Study Cut-offsRule In:< /= 50 Years >450 pg/mL51 Years - 75 Years >900 pg/mL76 Years - 99 Years >1800 pg/mLRule Out:All patients <300 pg/mL Performed By: #### 4 7395 #### LAB [address] [place], [place] [address] Moody Martinez M.D. [id number] OSMOLALITYon 02-28-2025 Osmolality [Osmolality] 328 mosm/kg High 275-295 [facility] Comment on above: Performed By: #### 4 6230 #### LAB [address] [place] [address] Moody Martinez M.D. [id number] PHOSPHORUSon 02-28-2025 Phosphate [Mass/Vol] 2.5 mg/dL Normal 2.3-3.7 [facility] Comment on above: Performed By: #### 4 6299 #### LAB [address] [place] [address] Moody Martinez M.D. [id number] Phosphate [Mass/Vol] 2.7 mg/dL Normal 2.3-3.7 [facility] Comment on above: Performed By: #### 4 6299 #### LAB [address] [place] [address] Moody Martinez M.D. [id number] Phosphate [Mass/Vol] 3.5 mg/dL Normal 2.3-3.7 [facility] Comment on above: Performed By: #### 4 6299 #### LAB [address] [place] [address] Moody Martinez M.D. [id number] POC GLUCOSE - [facility] 025 Glucose [Mass/Vol] 236 mg/dL [facility] [address] Comment on above: Performed By: #### 4 6932 ####[facility] LAB [address] [place] [address] Moody Martinez M.D. [id number] Glucose [Mass/Vol] 153 mg/dL [address] Comment on above: Performed By: #### L [id number] #### [facility] [address] [place] [address] Moody Martinez M.D. [id number] Glucose [Mass/Vol] 57 mg/dL Low [address] [place] [address] Comment on above: Performed By: #### 4 6932 #### LAB [address] [place] [address] Moody Martinez M.D. [id number] Glucose [Mass/Vol] 73 mg/dL Normal [address] [place] [address] Comment on above: Performed By: #### 4 6932 ####[facility] LAB [address] [place] [address] Moody Martinez M.D. [id number] Glucose [Mass/Vol] 102 mg/dL High [address] [place] [address] Comment on above: Performed By: #### L [id number] #### LAB [address] [place] [address] Moody Martinez M.D. [id number] Glucose [Mass/Vol] 119 mg/dL High [address] [place] [address] Comment on above: Performed By: #### 4 6932 #### LAB [address] [place] [address] Moody Martinez M.D. [id number] Glucose [Mass/Vol] 146 mg/dL [address] Comment on above: Performed By: #### 4 6932 #### LAB [address] [place] [address] Moody Martinez M.D. [id number] Glucose [Mass/Vol] 177 mg/dL High [address] [place] [address] Comment on above: Performed By: #### 4 6932 #### LAB [address] [place] [address] Moody Martinez M.D. [id number] Glucose [Mass/Vol] 241 mg/dL High [address] [place] [address] Comment on above: Performed By: #### 4 6932 #### LAB [address] [place] [address] Moody Martinez M.D. [id number] Glucose [Mass/Vol] 326 mg/dL High [address] [place] [address] Comment on above: Performed By: #### 4 6932 #### LAB [address] [place] [address] Moody Martinez M.D. [id number] Glucose [Mass/Vol] 429 mg/dL Off scale high [address] [place] [address] Comment on above: Order Comment: Criti christian result acted upon time of test. Test performed at bedside. Performed By: #### 4 6932 ####[facility] LAB [address] [place] [address] Moody Martinez M.D. [id number] POC GLUCOSE > Off scale high [address] [place] [address] Comment on above: Order Comment: Criti christian result acted upon time of test. Test performed at bedside. Performed By: #### 4 6932 ####[facility] [address] [place] [address] Moody Martinez M.D. [id number] POC GLUCOSE > Off scale high [address] [place] [address] Comment on above: Order Comment: Criti christian result acted upon time of test. Test performed at bedside. Performed By: #### 4 6932 ####[facility] [address] [place] [address] Moody Martinez M.D. [id number] POC VENOUS BLOOD GAS PANEL-P ROSE Lyons 02-28-2025 BASE EXCESS, VENOUS -5.7 Low -2.0-2.0 [facility] Comment on above: Performed By: #### 4 8717 ####[facility] LAB [address] [place] [address] Moody Martinez M.D. [id number] FIO2 50 Normal [facility] Comment on above: Performed By: #### 4 8717 ####[facility] LAB [address] [place] [address] Moody Martinez M.D. [id number] HCO3 (Bld) [Moles/Vol] 19.3 mmol/L Low 24.0-28.0 [facility] Comment on above: Performed By: #### 4 8717 ####[facility] LAB [address] [place] [address] Moody Martinez M.D. [id number] Hematocrit (Bld) [Volume fraction] 37.3 % Low 41.0-53.0 [facility] Comment on above: Performed By: #### 4 8717 #### LAB [address] [place] [address] Moody Martinez M.D. [id number] Hemoglobin (Bld) [Mass/Vol] 12.2 g/dL Low 13.5-17.5 [facility] Comment on above: Performed By: #### 4 8717 #### LAB [address] [place] [address] Moody Martinez M.D. [id number] Oxygen saturation in Blood 93.7 % High 40.0-70.0 [facility] Comment on above: Performed By: #### 4 8717 #### LAB [address] [place] [address] Moody Martinez M.D. [id number] PCO2 VENOUS 35.1 mm Hg Low 41.0-51.0 [facility] Comment on above: Performed By: #### 4 8717 #### LAB [address] [place] [address] Moody Martinez M.D. [id number] PH VENOUS 7.35 Normal 7.32-7.42 [facility] Comment on above: Performed By: #### 4 8717 #### LAB [address] [place] [address] Moody Martinez M.D. [id number] PO2 VENOUS 68 mm Hg High 25-40 [facility] Comment on above: Performed By: #### 4 8717 #### LAB [address] [place] [address] Moody Martinez M.D. [id number] RESP RATE RAD 14 Normal [facility] Comment on above: Performed By: #### 4 8717 #### LAB [address] [place] [address] Moody Martinez M.D. [id number] SPECIMEN SOURCE RADIANCE Not specified [facility] Comment on above: Performed By: #### 4 8717 ####[facility] LAB [address] [place] [address] Moody Martinez M.D. [id number] BASE EXCESS, VENOUS -5.9 Low -2.0-2.0 [facility] Comment on above: Performed By: #### 4 8717 ####[facility] LAB [address] [place] [address] Moody Martinez M.D. [id number] HCO3 (Bld) [Moles/Vol] 20.5 mmol/L Low 24.0-28.0 [facility] Comment on above: Performed By: #### 4 8717 ####[facility] LAB [address] [place] [address] Moody Martinez M.D. [id number] Hematocrit (Bld) [Volume fraction] 42.0 % Normal 41.0-53.0 [facility] Comment on above: Performed By: #### 4 8717 ####[facility] LAB [address] [place] [address] Moody Martinez M.D. [id number] Hemoglobin (Bld) [Mass/Vol] 13.7 g/dL Normal 13.5-17.5 [facility] Comment on above: Performed By: #### 4 8717 ####[facility] LAB [address] [place] [address] Moody Martinez M.D. [id number] LITER FLOW 2 Normal [facility] Comment on above: Performed By: #### 4 8717 ####[facility] LAB [address] [place] [address] Moody Martinez M.D. [id number] Oxygen saturation in Blood 50.9 % Normal 40.0-70.0 [facility] Comment on above: Performed By: #### 4 8717 ####[facility] LAB [address] [place] [address] Moody Martinez M.D. [id number] PCO2 VENOUS 43.1 mm Hg Normal 41.0-51.0 [facility] Comment on above: Performed By: #### 4 8717 ####[facility] LAB [address] [place] [address] Moody Martinez M.D. [id number] PH VENOUS 7.29 Low 7.32-7.42 [facility] Comment on above: Performed By: #### 4 8717 ####[facility] LAB [address] [place] [address] Moody Martinez M.D. [id number] PO2 VENOUS 30 mm Hg Normal 25-40 [facility] Comment on above: Performed By: #### 4 8717 ####[facility] LAB [address] [place] [address] Moody Martinez M.D. [id number] SPECIMEN SOURCE RADIANCE Not specified Normal [facility] Comment on above: Performed By: #### 4 8717 #### LAB [address] [place] [address] Moody Martinez M.D. [id number] PROCALCITONINon 02-28-2025 PROCALCITONIN 0.18 ng/ml Normal <0.50 [facility] Comment on above: Order Comment: Resul ts <0.50 ng/ml represent a low risk of severe sepsis and/or septic shock. Performed By: #### 4 6932 #### LAB [address] [place] [address] Moody Martinez M.D. [id number] REFLEX LACTIC ACID, PLASMAon 02-28-2025 LACTIC ACID, PLASMA 2.0 mmol/L Normal 0.6-2.0 [facility] Comment on above: Performed By: #### 4 4014 #### LAB [address] [place] [address] Moody Martinez M.D. [id number] LACTIC ACID, PLASMA 3.5 mmol/L High 0.6-2.0 [facility] Comment on above: Performed By: #### L [id number] ####[facility] LAB [address] [place] [address] Moody Martinez M.D. [id number] RESPIRATORY PCR PANELon 02-01 RESPIRATORY PCR PANEL INFLUENZA A FILMARRAY Not Detected INFLUENZA B FILM ARRAY Not Detected PARAINFLUENZA VIRUS 1 Not Detected PARAINFLUENZA VIRUS 2 Not Detected PARAINFLUENZA VIRUS 3 Not Detected PARAINFLUENZA VIRUS 4 Not Detected RESPIRATORY SYNCYTIAL VIRUS FILM ARRAY Not Detected HUMAN METAPNEUMOVIRUS Not Detected HUMAN RHINOVIRUS/ENTEROVIR US Not Detected ADENOVIRUS FILM ARRAY Not Detected CORONAVIRUS 229E Not Detected CORONAVIRUS HKU1 Not Detected CORONAVIRUS NL63 Not Detected CORONAVIRUS OC43 Not Detected BORDETELLA PARAPERTUSSIS Not Detected BORDETELLA PERTUSSIS Not Detected MYCOPLASMA PNEUMONIAE Not Detected CHLAMYDIA PNEUMONIAE Not Detected SARS-COV-2 (BIOFIRE) Not Detected Normal Not Detected [facility] Comment on above: Performed By: #### L [id number] ####[facility] [place] [address] Jose Cisse M.D. [id number] S.PNEUMONIAE URINE ANTIGENon 02-28-2025 S.PNEUMONIAE URINE ANTIGEN STREP PNEUMONIAE ANTIGEN, URINE Presumptive Negative for Pneumococcal pneumoniae A negative result does not rule out Streptococcus pneumoniae infection since the antigen present in the sample may be below the detection limit of the test. [facility] Comment on above: Performed By: #### 4 7222 #### LAB [address] [place] [address] Moody Martinez M.D. [id number] SEDIMENTATION RATEon 025 SEDIMENTATION RATE, ERYTHROCYTE 16 mm/hr Normal 0-20 [facility] Comment on above: Performed By: #### 4 6477 #### LAB [address] [place] [address] Moody Martinez M.D. [id number] TROPONIN X 2 (NOW AND REPEAT IN 2 HOURS)on 02-28-2025 TROPONIN T DELTA % NG/L 176 % Off scale high <2 0% of Baseline Troponin [facility] Comment on above: Performed By: #### 4 6608 #### LAB [address] [place] [address] Moody Martinez M.D. [id number] TROPONIN T DELTA CHANGE INTERPRETATION Probable acute injury or myocardial infarction. [facility] Comment on above: Performed By: #### 4 6608 #### LAB [address] [place] [address] Moody Martinez M.D. [id number] TROPONIN T NG/L 207 ng/L Off scale high <=22 [facility] Comment on above: Performed By: #### 4 6608 #### LAB [address] [place] [address] Moody Martinez M.D. [id number] BASELINE TROPONIN T NG/L 75 ng/L Off scale high <=22 [facility] Comment on above: Performed By: #### 4 4014 #### LAB [address] [place] [address] Moody Martinez M.D. [id number] TROPONIN T INTERPRETATION Possible acute cardiac injury. Normal [facility] Comment on above: Performed By: #### 4 4014 #### LAB [address] [place] [address] Moody Martinez M.D. [id number] TSH WITH REFLEX FREE T4on TSH Qn 0.61 m[IU]/L Normal 0.27-4.20 [facility] Comment on above: Performed By: #### 4 6612 #### LAB [address] [place] [address] Moody Martinez M.D. [id number] URINALYSISon 02-28-2025 BACTERIA, URINE None Seen Normal None Seen [facility] Comment on above: Order Comment: Micro scopic examination is performed on all urinalysis samples and only positive findings are reported. The test for blood on the chemical analytic portion of urinalysis may also be positive due to hemoglobinuria and myoglobinuria and if red blood cells are present they are quantified by microscopic examination. Performed By: #### 4 6625 #### LAB [address] [place] [address] Moody Martinez M.D. [id number] BILIRUBIN, URINE Negative Normal Negative [facility] Comment on above: Order Comment: Micro scopic examination is performed on all urinalysis samples and only positive findings are reported. The test for blood on the chemical analytic portion of urinalysis may also be positive due to hemoglobinuria and myoglobinuria and if red blood cells are present they are quantified by microscopic examination. Performed By: #### 4 6625 #### LAB [address] [place] [address] Moody Martinez M.D. [id number] BLOOD, URINE Negative Normal Negative [facility] Comment on above: Order Comment: Micro scopic examination is performed on all urinalysis samples and only positive findings are reported. The test for blood on the chemical analytic portion of urinalysis may also be positive due to hemoglobinuria and myoglobinuria and if red blood cells are present they are quantified by microscopic examination. Performed By: #### 4 6625 #### LAB [address] [place] [address] Moody Martinez M.D. [id number] Clarity (U) Clear Normal Clear [facility] Comment on above: Order Comment: Micro scopic examination is performed on all urinalysis samples and only positive findings are reported. The test for blood on the chemical analytic portion of urinalysis may also be positive due to hemoglobinuria and myoglobinuria and if red blood cells are present they are quantified by microscopic examination. Performed By: #### 4 6625 #### LAB [address] [place] [address] Moody Martinez M.D. [id number] Color (U) Yellow Normal Colorless, Yellow [facility] Comment on above: Order Comment: Micro scopic examination is performed on all urinalysis samples and only positive findings are reported. The test for blood on the chemical analytic portion of urinalysis may also be positive due to hemoglobinuria and myoglobinuria and if red blood cells are present they are quantified by microscopic examination. Performed By: #### 4 6625 #### LAB [address] [place] [address] Moody Martinez M.D. [id number] Glucose Ql (U) >=500 Abnormal Negative [facility] Comment on above: Order Comment: Micro scopic examination is performed on all urinalysis samples and only positive findings are reported. The test for blood on the chemical analytic portion of urinalysis may also be positive due to hemoglobinuria and myoglobinuria and if red blood cells are present they are quantified by microscopic examination. Performed By: #### 4 6625 #### LAB [address] [place] [id number] Moody Martinez M.D. [id number] Hyaline casts LM Ql (Urine sed) 3-5 Abnormal 0-2 [facility] Comment on above: Order Comment: Micro scopic examination is performed on all urinalysis samples and only positive findings are reported. The test for blood on the chemical analytic portion of urinalysis may also be positive due to hemoglobinuria and myoglobinuria and if red blood cells are present they are quantified by microscopic examination. Performed By: #### 4 6625 #### LAB [address] [place] [address] Moody Martinez M.D. [id number] Ketones Ql (U) Trace Abnormal Negative [facility] Comment on above: Order Comment: Micro scopic examination is performed on all urinalysis samples and only positive findings are reported. The test for blood on the chemical analytic portion of urinalysis may also be positive due to hemoglobinuria and myoglobinuria and if red blood cells are present they are quantified by microscopic examination. Performed By: #### 4 6625 #### LAB [address] [place] [id number] Moody Martinez M.D. [id number] Leukocyte esterase Test strip Ql (U) Negative Normal Negative [facility] Comment on above: Order Comment: Micro scopic examination is performed on all urinalysis samples and only positive findings are reported. The test for blood on the chemical analytic portion of urinalysis may also be positive due to hemoglobinuria and myoglobinuria and if red blood cells are present they are quantified by microscopic examination. Performed By: #### 4 6625 #### LAB [address] [place] [id number] Moody Martinez M.D. [id number] MUCUS, URINE Rare Normal None Seen, Rare [facility] Comment on above: Order Comment: Micro scopic examination is performed on all urinalysis samples and only positive findings are reported. The test for blood on the chemical analytic portion of urinalysis may also be positive due to hemoglobinuria and myoglobinuria and if red blood cells are present they are quantified by microscopic examination. Performed By: #### 4 6625 #### LAB [address] [place] [address] Moody Martinez M.D. [id number] NITRITE, URINE Negative Normal Negative [facility] Comment on above: Order Comment: Micro scopic examination is performed on all urinalysis samples and only positive findings are reported. The test for blood on the chemical analytic portion of urinalysis may also be positive due to hemoglobinuria and myoglobinuria and if red blood cells are present they are quantified by microscopic examination. Performed By: #### 4 6625 #### LAB [address] [place] [address] Moody Martinez M.D. [id number] pH (U) 5.5 [pH] Normal 5.0-7.0 [facility] Comment on above: Order Comment: Micro scopic examination is performed on all urinalysis samples and only positive findings are reported. The test for blood on the chemical analytic portion of urinalysis may also be positive due to hemoglobinuria and myoglobinuria and if red blood cells are present they are quantified by microscopic examination. Performed By: #### 4 6625 #### LAB [address] [place] [address] Moody Martinez M.D. [id number] PROTEIN, URINE Negative Normal Negative [facility] Comment on above: Order Comment: Micro scopic examination is performed on all urinalysis samples and only positive findings are reported. The test for blood on the chemical analytic portion of urinalysis may also be positive due to hemoglobinuria and myoglobinuria and if red blood cells are present they are quantified by microscopic examination. Performed By: #### 4 6625 #### LAB [address] [place] [address] Moody Martinez M.D. [id number] RBC LM.HPF (Urine sed) [#/Area] 1 /[HPF] Normal 0-3 [facility] Comment on above: Order Comment: Micro scopic examination is performed on all urinalysis samples and only positive findings are reported. The test for blood on the chemical analytic portion of urinalysis may also be positive due to hemoglobinuria and myoglobinuria and if red blood cells are present they are quantified by microscopic examination. Performed By: #### 4 6625 #### LAB [address] [place] [id number] Moody Martinez M.D. [id number] Specific gravity (U) [Rel density] 1.012 Normal 1.005-1.025 [facility] Comment on above: Order Comment: Micro scopic examination is performed on all urinalysis samples and only positive findings are reported. The test for blood on the chemical analytic portion of urinalysis may also be positive due to hemoglobinuria and myoglobinuria and if red blood cells are present they are quantified by microscopic examination. Performed By: #### 4 6625 #### LAB [address] [place] [address] Moody Martinez M.D. [id number] UROBILINOGEN, URINE <2.0 Normal <2.0 [facility] Comment on above: Order Comment: Micro scopic examination is performed on all urinalysis samples and only positive findings are reported. The test for blood on the chemical analytic portion of urinalysis may also be positive due to hemoglobinuria and myoglobinuria and if red blood cells are present they are quantified by microscopic examination. Performed By: #### 4 6625 #### LAB [address] [place] [address] Moody Martinez M.D. [id number] WBC LM.HPF (Urine sed) [#/Area] 1 /[HPF] Normal 0-5 [facility] Comment on above: Order Comment: Micro scopic examination is performed on all urinalysis samples and only positive findings are reported. The test for blood on the chemical analytic portion of urinalysis may also be positive due to hemoglobinuria and myoglobinuria and if red blood cells are present they are quantified by microscopic examination. Performed By: #### 4 6625 #### LAB [address] [place] [address] Moody Martinez M.D. [id number] URINE AEROBIC CULTUREon 02-01 URINE AEROBIC CULTURE URINE CULTURE < 10,000 CFU/mL of normal urogenital microbiota Normal [facility] Comment on above: Performed By: #### 4 4053 ####[facility] [address] Jose Cisse M.D. [id number] XR CHEST PA/APon 02-28-2025 XR CHEST PA/AP [...] on WedFeb 28, 2025 4:00:36 AM EDT [facility] Comment on above: Order Comment: Injur y/Trauma or Illness?:Illness/Other How long have you had these symptoms (acute/chronic)?:Acute Reason for exam?:sob History of cancer?:. Surgeries, chemotherapy, or radiation?:cardiac catheterization Type of Exam?:Initial Additional signs and symptoms?:n ALBUMIN, RANDOM URINE W/CREA [facility] 02-13-2025 ALBUMIN, URINE 7.1 mg/dL Normal See Note: [facility] Comment on above: Result Comment: Refe rence Range: Reference Range Not established Performed By: #### 7 909, 36290, 6517 #### [facility] [place] [address] [employer] Manager: Jadon Velez MD ALBUMIN/CREATININE RATIO, RANDOM URINE [...] diagnostic category. Performed By: #### 7 909, 84275, 6517 #### [facility] [place] [address] [employer] Manager: Jadon Velez MD Creatinine (U) [Mass/Vol] 57 mg/dL Normal 20-320 [facility] Comment on above: Performed By: #### 7 909, 12791, 6517 #### [facility] [place] [address] [employer]eral [employer] Manager: Jadon Velez MD [facility] 02-13-2025 Albumin [Mass/Vol] 4.3 g/dL Normal 3.6-5.1 [facility] Comment on above: Performed By: #### 8 66, 7600, 496, 88030, 56120 #### [facility] [place] [address] [employer]eral Home Manager: Jadon Velez MD Albumin/Globulin [Mass ratio] 1.7 {ratio} Normal 1.0-2.5 [facility] Comment on above: Performed By: #### 8 66, 7600, 496, 70673, 04310 #### [facility] [place] [address] [employer]eral Home Manager: Jadon Velez MD ALP [Catalytic activity/Vol] 61 U/L Normal 35-144 [facility] Comment on above: Performed By: #### 8 66, 7600, 496, 94922, 98820 #### [facility] [address] [place] [address] Funeral Home Manager: Jadon Velez MD ALT [Catalytic activity/Vol] 12 U/L Normal 9-46 [facility] Comment on above: Performed By: #### 8 66, 7600, 496, 95730, 41099 #### [facility] [place] [address] [employer]eral Home Manager: Jadon Velez MD AST [Catalytic activity/Vol] 16 U/L Normal 10-35 [facility] Comment on above: Performed By: #### 8 66, 7600, 496, 46250, 28720 #### [facility] [place] [address] [employer]eral Home Manager: Jadon Velez MD Bilirubin [Mass/Vol] 0.5 mg/dL Normal 0.2-1.2 [facility] Comment on above: Performed By: #### 8 66, 7600, 496, 02830, 84155 #### [facility] [place] [address] [employer]eral Home Manager: Jadon Velez MD Calcium [Mass/Vol] 9.3 mg/dL Normal 8.6-10.3 [facility] Comment on above: Performed By: #### 8 66, 7600, 496, 75713, 86846 #### [facility] [place] [address] [employer]eral Home Manager: Jadon Velez MD Chloride [Moles/Vol] 102 mmol/L Normal 98-110 [facility] Comment on above: Performed By: #### 8 66, 7600, 496, 79942, 21898 #### [facility] [place] [address] [employer]eral Home Manager: Jadon Velez MD CO2 [Moles/Vol] 28 mmol/L Normal 20-32 [facility] Comment on above: Performed By: #### 8 66, 7600, 496, 55557, 82980 #### [facility] [place] [address] [employer]eral Home Manager: Jadon Velez MD Creatinine [Mass/Vol] 1.76 mg/dL High 0.70-1.[address] [facility] Comment on above: Performed By: #### 8 66, 7600, 496, 48162, 34826 #### [facility] [address], [address] [place] [address] Funeral Home Manager: Jadon Velez MD GFR/1.73 sq M.predicted among non-blacks MDRD (S/P/Bld) [Vol rate/Area] 38 mL/min/{1.73_m2} Low > OR = 60 [facility] Comment on above: Performed By: #### 8 66, 7600, 496, 89789, 80120 #### [facility] [address], [address] [place] [address] Funeral Home Manager: Jadon Velez MD Globulin (S) [Mass/Vol] 2.6 g/dL Normal 1.9-3.7 [facility] Comment on above: Performed By: #### 8 66, 7600, 496, 24061, 96398 #### [facility] [place] [address] [employer]eral Home Manager: Jadon Velez MD Glucose [Mass/Vol] 242 mg/dL High 65-99 [facility] Comment on above: Result Comment: Fasting reference interval For someone without known diabetes, a glucose value >125 mg/dL indicates that they may have diabetes and this should be confirmed with a follow-up test. Performed By: #### 8 66, 7600, 496, 12298, 26120 #### [facility] [address], [address] [place] [address] Funeral Home Manager: Jadon Velez MD Potassium [Moles/Vol] 4.6 mmol/L Normal 3.5-5.[address] [facility] Comment on above: Performed By: #### 8 66, 7600, 496, 79401, 28251 #### [facility] [address], [address] [place] [address] Funeral Home Manager: Jadon Velez MD Protein [Mass/Vol] 6.9 g/dL Normal 6.1-8.1 [facility] Comment on above: Performed By: #### 8 66, 7600, 496, 82289, 39757 #### [facility] of [address], [address] [place] [address] Funeral Home Manager: Jadon Velez MD Sodium [Moles/Vol] 140 mmol/L Normal 135-146 [facility] Comment on above: Performed By: #### 8 66, 7600, 496, 37381, 09914 #### [facility] of [address], [address] [place] [address] Funeral Home Manager: Jadon Velez MD Urea nitrogen [Mass/Vol] 38 mg/dL High 7-25 [facility] Comment on above: Performed By: #### 8 66, 7600, 496, 24174, 87837 #### [facility] of [address], [address] [place] [address] Funeral Home Manager: Jadon Velez MD Urea nitrogen/Creatinine [Mass ratio] 22 mg/mg Normal 6-22 [facility] Comment on above: Performed By: #### 8 66, 7600, 496, 78506, 16607 #### [facility] of [address], [address] [place] [address] Funeral Home Manager: Jadon Velez MD COMPREHENSIVE METABOLIC PANE L W/ANION GAPon 02-13-2025 Albumin [Mass/Vol] 4.3 g/dL Normal 3.6-5.1 [facility] Comment on above: Performed By: #### 7 769, 85790, 5117 #### [facility] [place] [address] [employer]eral Home Manager: Jadon Velez MD ALP [Catalytic activity/Vol] 60 U/L Normal 35-144 [facility] Comment on above: Performed By: #### 7 269, 69647, 3517 #### [facility] [place] [address] [employer]eral Home Manager: Jadon Velez MD ALT [Catalytic activity/Vol] 11 U/L Normal 9-46 [facility] Comment on above: Performed By: #### 7 90, 35346, 6517 #### [facility] [place] [address] [employer]eral Home Manager: Jadon Velez MD AST [Catalytic activity/Vol] 15 U/L Normal 10-35 [facility] Comment on above: Performed By: #### 7 90, 02643, 17 #### [facility] [place] [address] [employer]eral Home Manager: Jadon Velez MD Bilirubin [Mass/Vol] 0.5 mg/dL Normal 0.2-1.2 [facility] Comment on above: Performed By: #### 7 90, 48157, 17 #### [facility] [place] [address] [employer]eral Home Manager: Jadon Velez MD Calcium [Mass/Vol] 9.3 mg/dL Normal 8.6-10.3 [facility] Comment on above: Performed By: #### 7 90, 97849, 6517 #### [facility] [place] [address] [employer]eral Home Manager: Jadon Velez MD Chloride [Moles/Vol] 102 mmol/L Normal 98-110 [facility] Comment on above: Performed By: #### 7 90, 67743, 6517 #### [facility] [place] [address] [employer]eral Home Manager: Jadon Velez MD CO2 [Moles/Vol] 28 mmol/L Normal 20-32 [facility] Comment on above: Performed By: #### 7 90, 81041, 6517 #### [facility] [place] [address] [employer]eral Home Manager: Jadon Velez MD Creatinine [Mass/Vol] 1.80 mg/dL High 0.70-1.[address] [facility] Comment on above: Performed By: #### 7 909, 63472, 6517 #### [facility] [address], [address] [place] [address] Funeral Home Manager: Jadon Velez MD ELECTROLYTE BALANCE 10 mmol/L (calc) Normal 05-17 [facility] Comment on above: Performed By: #### 7 909, 59145, 6517 #### [facility] [address], [address] [place] [address] Funeral Home Manager: Jdaon Velez MD GFR/1.73 sq M.predicted among non-blacks MDRD (S/P/Bld) [Vol rate/Area] 37 mL/min/{1.73_m2} Low > OR = 60 [facility] Comment on above: Performed By: #### 7 90, 12268, 6517 #### [facility] [address], [address] [place] [address] Funeral Home Manager: Jadon Velez MD Glucose [Mass/Vol] 241 mg/dL High [facility] Comment on above: Result Comment: Fasting reference interval For someone without known diabetes, a glucose value >125 mg/dL indicates that they may have diabetes and this should be confirmed with a follow-up test. Performed By: #### 7 90, 16451, 6517 #### [facility] [address], [address] [place] [address] Funeral Home Manager: Jadon Velez MD Potassium [Moles/Vol] 4.7 mmol/L Normal 3.5-5.[address] [facility] Comment on above: Performed By: #### 7 90, 62156, 6517 #### [facility] [place] [address] [employer]eral Home Manager: Jadon Velez MD Protein [Mass/Vol] 6.7 g/dL Normal 6.1-8.1 [facility] Comment on above: Performed By: #### 7 90, 64865, 6517 #### [facility] [place] [address] [employer]eral Home Manager: Jadon Velez MD Sodium [Moles/Vol] 140 mmol/L Normal 135-146 [facility] Comment on above: Performed By: #### 7 909, 21095, 1843 #### [facility] [address] [place] [address], [address] Funeral Home Manager: Jadon Velez MD Urea nitrogen [Mass/Vol] 38 mg/dL High 7-25 [facility] Comment on above: Performed By: #### 7 909, 88375, 0117 #### [facility] [address] [place] [address], [address] [employer] Home Manager: Jadon Velez MD Comprehensive metabolic 2000 panelon 02-13-2025 Albumin [Mass/Vol] 4.3 g/dL 3.6 - 5.1 g/dL [facility] Albumin/Globulin [Mass ratio] 1.7 {ratio} [facility] ALP [Catalytic activity/Vol] 61 U/L 35 - 144 U/L [facility] ALT [Catalytic activity/Vol] 12 U/L 9 - 46 U/L [facility] AST [Catalytic activity/Vol] 16 U/L 10 - 35 U/L [facility] Bilirubin [Mass/Vol] 0.5 mg/dL 0.2 - 1 .2 mg/dL [facility] Calcium [Mass/Vol] 9.3 mg/dL 8.6 - 10. 3 mg/dL [facility] Chloride [Moles/Vol] 102 mmol/L 98 - 11 0 mmol/L [facility] CO2 [Moles/Vol] 28 mmol/L 20 - 32 mmol/L [facility] Creatinine [Mass/Vol] 1.76 mg/dL High 0.70 - 1.22 mg/dL [facility] GFR/1.73 sq M.predicted among non-blacks MDRD (S/P/Bld) [Vol rate/Area] 38 mL/min/{1.73_m2} Low > OR = 60 mL/min/1.73m2 [facility] Globulin (S) [Mass/Vol] 2.6 g/dL [facility] Glucose [Mass/Vol] 242 mg/dL High 65 - 99 mg/dL [facility] Comment on above: Fasting reference interval For someone without known diabetes, a glucose value >125 mg/dL indicates that they may have diabetes and this should be confirmed with a follow-up test. Interpretation and review of laboratory results Abnormal [facility] Potassium [Moles/Vol] 4.6 mmol/L 3.5 - 5.3 mmol/L [facility] Protein [Mass/Vol] 6.9 g/dL 6.1 - 8.1 g/dL [facility] Sodium [Moles/Vol] 140 mmol/L 135 - 146 mmol/L [facility] Urea nitrogen [Mass/Vol] 38 mg/dL High 7 - 25 mg/d L [facility] Urea nitrogen/Creatinine [Mass ratio] 22 mg/mg [facility] HEMOGLOBIN A1con 02-13-2025 HbA1c (Bld) [Mass fraction] 7.4 % High <5.7 [facility] Comment on above: Result Comment: For [...] for children. Performed By: #### 7 909, 57790, 6517 #### [facility] [address], [address] [place] [address] Funeral Home Manager: Jadon Velez MD HbA1c (Bld) [Mass fraction]o n 02-13-2025 Interpretation and review of laboratory results Abnormal [facility] Hemoglobin A1con 02-13-2025 HbA1c (Bld) [Mass fraction] 7.4 % High NINF - 5.7 % [facility] Comment on above: For someone without known [...] of diabetes for children. LIPID PANEL, STANDARDon 04- Cholesterol [Mass/Vol] 148 mg/dL Normal <200 [facility] Comment on above: Performed By: #### 8 66, 7600, 496, 78473, 42183 #### [facility] [address], [address] [place], [place] [address] Funeral Home Manager: Jadon Velez MD Cholesterol in HDL [Mass/Vol] 57 mg/dL Normal > OR = 40 [facility] Comment on above: Performed By: #### 8 66, 7600, 496, 85950, 88560 #### [facility] [address], [address] [place], [place] [address] Funeral Home Manager: Jadon Velez MD Cholesterol in LDL [Mass/Vol] [...] Ramon SS et al. ANA LAURA. 2013;310(19): 4206-9005 (http://education.bLife.Et3arraf/faq/GIW496) Performed By: #### 8 66, 7600, 496, 29953, 64136 #### [facility] [place] [address] [employer]eral Home Manager: Jadon Velez MD Cholesterol.total/Cholest santos in HDL [Mass ratio] 2.6 {ratio} Normal <5.0 [facility] Comment on above: Performed By: #### 8 66, 7600, 496, 41050, 57333 #### [facility] [place] [id number] Funeral Home Manager: Jadon Velez MD NON HDL CHOLESTEROL 91 mg/dL (calc) Normal <130 [facility] Comment on above: Result Comment: For patients with diabetes plus 1 major ASCVD risk factor, treating to a non-HDL-C goal of <100 mg/dL (LDL-C of <70 mg/dL) is considered a therapeutic option. Performed By: #### 8 66, 7600, 496, 51757, 78782 #### [facility] [address], [address] [place] [address] Funeral Home Manager: Jadon Velez MD Triglyceride [Mass/Vol] 85 mg/dL Normal <150 [facility] Comment on above: Performed By: #### 8 66, 7600, 496, 22918, 20688 #### [facility] [address], [address] [place] [address] Funeral Home Manager: Jadon Velez MD Lipid 1996 panelon 5 Cholesterol [Mass/Vol] 148 mg/dL [facility] - 200 mg/dL [facility] Cholesterol in HDL [Mass/Vol] 57 mg/dL > OR = 40 [facility] Cholesterol in LDL [Mass/Vol] 74 mg/dL mg/dL (calc) [facility] Comment on above: Reference range: <10 0 Desirable range <100 mg/dL for primary prevention; <70 mg/dL for patients with CHD or diabetic patients with > or = 2 CHD risk factors. LDL-C is now calculated using the Jose Ramon-Gutierrez calculation, which is a validated novel method providing better accuracy than the Friedewald equation in the estimation of LDL-C. Jose Ramon SORIA et al. ANA LAURA. 2013;310(19): 2218-2079 (http://education.bLife.Et3arraf/faq/UXH078) Cholesterol non HDL [Mass/Vol] 91 mg/dL [facility] Comment on above: For patients with di abetes plus 1 major ASCVD risk factor, treating to a non-HDL-C goal of <100 mg/dL (LDL-C of <70 mg/dL) is considered a therapeutic option. Cholesterol.total/Cholest santos in HDL [Mass ratio] 2.6 {ratio} [facility] Triglyceride [Mass/Vol] 85 mg/dL [facility] - 150 mg/dL [facility] NOTEon 02-13-2025 NOTE Normal [facility] Comment on above: Result Comment: This urine was analyzed for the presence of WBC, RBC, bacteria, casts, and other formed elements. Only those elements seen were reported. Performed By: #### 7 909, 02128, 6517 #### [facility] of [address], [address] [place] [address] Funeral Home Manager: Jadon Velez MD No Panel Informationon 02-13 [facility] T4, FREEon 02-13-2025 Free T4 [Mass/Vol] 1.4 ng/dL Normal 0.8-1.8 [facility] Comment on above: Performed By: #### 7 909, 37594, 6517 #### [facility] of [address], [address] [place] [address] Funeral Home Manager: Jadon Velez MD TSH W/REFLEX TO FT4on 2024 TSH W/REFLEX TO FT4 0.36 mIU/L Low 0.40-4.50 [facility] Comment on above: Performed By: #### 8 66, 7600, 496, 12192, 59858 #### [facility] [place] [address] Funeral Home Manager: Jadon Velez MD URINALYSIS REFLEXon 02-14-20 25 Appearance (U) CLEAR Normal CLEAR [facility] Comment on above: Performed By: #### 7 909, 42931, 6517 #### [facility] [place] [address] [employer]eral Home Manager: Jadon Velez MD BACTERIA NONE SEEN Normal NONE SEEN [facility] Comment on above: Performed By: #### 7 909, 62611, 6517 #### [facility] [place] [address] Funeral Home Manager: Jadon Velez MD Bilirubin Ql (U) Negative Normal NEGATIVE [facility] Comment on above: Performed By: #### 7 909, 10834, 6517 #### [facility] [place] [address] Funeral Home Manager: Jadon Velez MD Color (U) YELLOW Normal YELLOW [facility] Comment on above: Performed By: #### 7 909, 90520, 6517 #### [facility] [place] [address] Funeral Home Manager: Jadon Velez MD Glucose Ql (U) Negative Normal NEGATIVE [facility] Comment on above: Performed By: #### 7 909, 93153, 6517 #### [facility] [place] [address] Funeral Home Manager: Jadon Velez MD HYALINE CAST NONE SEEN Normal NONE SEEN [facility] Comment on above: Performed By: #### 7 909, 90701, 6517 #### [facility] [place] [address] Funeral Home Manager: Jadon Velez MD Ketones Ql (U) Negative Normal NEGATIVE [facility] Comment on above: Performed By: #### 7 909, 38695, 6517 #### [facility] [place] [address] Funeral Home Manager: Jadon Velez MD Leukocyte esterase Test strip Ql (U) TRACE Abnormal NEGATIVE [facility] Comment on above: Performed By: #### 7 909, 42070, 6517 #### [facility] [place] [address] Funeral Home Manager: Jadon Velez MD Nitrite Ql (U) Negative Normal NEGATIVE [facility] Comment on above: Performed By: #### 7 909, 97250, 6517 #### [facility] [place] [address] Funeral Home Manager: Jadon Velez MD OCCULT BLOOD Negative Normal NEGATIVE [facility] Comment on above: Performed By: #### 7 909, 27288, 6517 #### [facility] [place] [address] Funeral Home Manager: Jadon Velez MD pH (U) 6.0 [pH] Normal 5.0-8.0 [facility] Comment on above: Performed By: #### 7 909, 49381, 6517 #### [facility] of [address], [address] [place] [address] Funeral Home Manager: Jadon Velez MD Protein Ql (U) 1+ Abnormal NEGATIVE [facility] Comment on above: Performed By: #### 7 909, 60511, 6517 #### [facility] [place] [address] Funeral Home Manager: Jadon Velez MD RBC NONE SEEN Normal < OR = 2 [facility] Comment on above: Performed By: #### 7 909, 14919, 6517 #### [facility] [place] [address] Funeral Home Manager: Jadon Velez MD Specific gravity (U) [Rel density] 1.011 Normal 1.001-1.035 [facility] Comment on above: Performed By: #### 7 909, 16150, 6517 #### [facility] [place] [address] Funeral Home Manager: Jadon Velze MD SQUAMOUS EPITHELIAL CELLS NONE SEEN Normal < OR = 5 [facility] Comment on above: Performed By: #### 7 909, 74014, 6517 #### [facility] [place] [address] Funeral Home Manager: Jadon Velez MD WBC 0-5 Normal < OR = 5 [facility] Comment on above: Performed By: #### 7 909, 76416, 6517 #### [facility] [place] [address] Funeral Home Manager: Jadon Velez MD Anion gap in Serum or Plasma Ordered By: Kerwin Tamayo on 02-06-2025 Anion gap [Moles/Vol] 12 mmol/L - [facility] BUN/creatinine ratioOrdered By: Kerwin Tamayo on 02-06-2025 Urea nitrogen/Creatinine [Mass ratio] 23.1 mg/mg High - [facility] Basic Metabolic Profile (BMP )on 04-08-2025 BUN/CRE 23.1 RATIO High 10-20 [facility] Comment on above: Performed By: #### L 500.2500, L100.0500 ####[facility] [address] [place], [address] Calcium [Mass/Vol] 9.1 mg/dL Normal 7.6-11.0 [facility] Comment on above: Performed By: #### L 500.2500, L100.0500 ####[facility] [address] [place], [address] Chloride [Moles/Vol] 103 mmol/L Normal 98-108 [facility] Comment on above: Performed By: #### L 500.2500, L100.0500 ####[facility] [address] [place], [address] CO2 [Moles/Vol] 23.7 mmol/L Normal 21.0-32.0 [facility] Comment on above: Performed By: #### L 500.2500, L100.0500 ####[facility] [address] [place], [address] Creatinine [Mass/Vol] 1.88 mg/dL High 0.70-1.20 [facility] Comment on above: Performed By: #### L 500.2500, L100.0500 ####[facility] [address] [place], [address] GAP 12 Normal 5-15 [facility] Comment on above: Performed By: #### L 500.2500, L100.0500 ####[facility] [address] [place], [address] GFR/1.73 sq M.predicted among non-blacks MDRD (S/P/Bld) [Vol rate/Area] 35 mL/min/{1.73_m2} Low >60 [facility] Comment on above: Result Comment: mL/m in/1.73m2 CKD-EPI Creatinine Equation (2020) Performed By: #### L 500.2500, L100.0500 ####[facility] [address] [place], [address] Glucose [Mass/Vol] 287 mg/dL High 70-99 [facility] Comment on above: Performed By: #### L 500.2500, L100.0500 ####[facility] [address] [place], [address] Potassium [Moles/Vol] 4.4 mmol/L Normal 3.3-5.1 [facility] Comment on above: Performed By: #### L 500.2500, L100.0500 ####[facility] [address] [place], [address] Sodium [Moles/Vol] 139 mmol/L Normal 133-145 [facility] Comment on above: Performed By: #### L 500.2500, L100.0500 ####[facility] [address] [place], [address] Urea nitrogen [Mass/Vol] 44 mg/dL High 4-19 [facility] Comment on above: Performed By: #### L 500.2500, L100.0500 ####[facility] [address] [place], [address] CBC-Complete Blood Cnt No Di ffon 02-06-2025 Erythrocyte distribution width (RBC) [Ratio] 13.0 % Normal 11.6-14.6 [facility] Comment on above: Performed By: #### L 500.2500, L100.0500 ####[facility] [address] [place], [address] Hematocrit (Bld) [Volume fraction] 33.8 % Low 40-54 [facility] Comment on above: Performed By: #### L 500.2500, L100.0500 ####[facility] [address] [place], [address] Hemoglobin (Bld) [Mass/Vol] 11.0 g/dL Low 13.0-16.5 [facility] Comment on above: Performed By: #### L 500.2500, L100.0500 ####[facility] [address] [place], [address] MCH (RBC) [Entitic mass] 31.0 pg Normal 27.0-32.0 [facility] Comment on above: Performed By: #### L 500.2500, L100.0500 ####[facility] [address] [place], [address] MCHC (RBC) [Mass/Vol] 32.5 g/dL Normal 32-36 [facility] Comment on above: Performed By: #### L 500.2500, L100.0500 ####[facility] [address] [place], [address] MCV (RBC) [Entitic vol] 95.2 fL High 80-94 [facility] Comment on above: Performed By: #### L 500.2500, L100.0500 ####[facility] [address] [place], [address] Platelet mean volume (Bld) [Entitic vol] 11.2 fL Normal 6.2-12.0 [facility] Comment on above: Performed By: #### L 500.2500, L100.0500 ####[facility] [address] [place], [address] Platelets (Bld) [#/Vol] 239 10*3/uL Normal 150-450 [facility] Comment on above: Performed By: #### L 500.2500, L100.0500 ####[facility] [address] [place], [address] RBC (Bld) [#/Vol] 3.55 10*6/uL Low 4.6-6.2 [facility] Comment on above: Performed By: #### L 500.2500, L100.0500 ####[facility] [address] [place], [address] RDW SD 45.3 fl High 35.1-43.9 [facility] Comment on above: Performed By: #### L 500.2500, L100.0500 ####[facility] [address] [place], [address] WBC (Bld) [#/Vol] 8.9 10*3/uL Normal 4.4-11.0 [facility] Comment on above: Performed By: #### L 500.2500, L100.0500 ####[facility] [address] [place], [address] [place] dioxide, total [Moles /volume] in Central venous bloodOrdered By: Kerwin Tamayo on 02-06-2025 CO2 [Moles/Vol] 23.7 mmol/L 21.0-32.0 [facility] Chloride assayOrdered By: Daniela Tamayo on 02-06-2025 Chloride [Moles/Vol] 103 mmol/L 98-108 [facility] Erythrocyte distribution wid th (RBC) [Ratio]Ordered By: Kerwin Tamayo on 02-06-2025 Erythrocyte distribution width (RBC) [Entitic vol] 45.3 fL High 35.1-43.9 [facility] Erythrocyte distribution wid th ratioOrdered By: Kerwin Tamayo on 02-06-2025 Erythrocyte distribution width (RBC) [Ratio] 13.0 % 11.6-14.6 [facility] Erythrocyte distribution wid th standard deviationOrdered By: Kerwin Tamayo on 02-06-2025 Erythrocyte distribution width (RBC) [Ratio] 45.3 fl High 35.1-43.9 [facility] GFR/1.73 sq M.predicted park g non-blacks MDRD (S/P/Bld) [Vol rate/Area]Ordered By: Kerwin Tamayo on 02-06-2025 Estimated GFR (MDRD) Non-Af Amer 35 Low >60 [facility] Comment on above: mL/min/1.73m2 CKD-EP I Creatinine Equation (2020) Glomerular filtration rate ( GFR) estimation/1.73 sq m using serum, plasma, or whole bOrdered By: Kerwin Tamayo on 02-06-2025 GFR/1.73 sq M.predicted among non-blacks MDRD (S/P/Bld) [Vol rate/Area] 35 mL/min/{1.73_m2} Low >60 [facility] Comment on above: mL/min/1.73m2 CKD-EP I Creatinine Equation (2020) Hematocrit Auto (Bld) [Volum e fraction]Ordered By: Kerwin Tamayo on 02-06-2025 Hematocrit (Bld) [Volume fraction] 33.8 % Low 40-54 [facility] Hemoglobin measurementOrdere d By: Kerwin Tamayo on 02-06-2025 Hemoglobin (Bld) [Mass/Vol] 11.0 g/dL Low 13.0-16.5 [facility] MCV (mean corpuscular volume ) determinationOrdered By: Kerwin Tamayo on 02-06-2025 MCV (RBC) [Entitic vol] 95.2 fL High 80-94 [facility] Mean corpuscular hemoglobin (MCH) determinationOrdered By: Kerwin aTmayo on 02-06-2025 MCH (RBC) [Entitic mass] 31.0 pg 27.0-32.0 [facility] Mean corpuscular hemoglobin concentration (MCHC) determinationOrdered By: Kerwin Tamayo on 02-06-2025 MCHC (RBC) [Mass/Vol] 32.5 g/dL 32-36 [facility] Mean platelet volume determi nationOrdered By: Kerwin Tamayo on 02-06-2025 Platelet mean volume (Bld) [Entitic vol] 11.2 fL 6.2-12.0 [facility] Platelet countOrdered By: Daniela Tamayo on 02-06-2025 Platelets (Bld) [#/Vol] 239 10*3/uL 150-450 [facility] Potassium (Unsp spec) [Mass/ Vol]Ordered By: Kerwin Tamayo on 02-06-2025 Potassium [Moles/Vol] 4.4 mmol/L 3.3-5.1 [facility] Potassium measurement (mass/ volume)Ordered By: Kerwin Tamayo on 02-06-2025 Potassium (Unsp spec) [Mass/Vol] 4.4 mmol/L 3.3-5.1 [facility] RBC Auto (Bld) [#/Vol]Ordere d By: Kerwin Tamayo on 02-06-2025 RBC (Bld) [#/Vol] 3.55 10*6/uL Low 4.6-6.2 [facility] Serum creatinine measurement (mass/volume)Ordered By: Kerwin Tamayo on 02-06-2025 Creatinine [Mass/Vol] 1.88 mg/dL High 0.70-1.20 [facility] Serum glucose measurement (m ass/volume)Ordered By: Kerwin Tamayo on 02-06-2025 Glucose [Mass/Vol] 287 mg/dL High 70-99 [facility] Serum or plasma calcium nikkie urement (mass/volume)Ordered By: Kerwin Tamayo on 02-06-2025 Calcium [Mass/Vol] 9.1 mg/dL 7.6-11.0 [facility] Serum or plasma urea nitroge n measurement (mass/volume)Ordered By: Kerwin Tamayo on 02-06-2025 Urea nitrogen [Mass/Vol] 44 mg/dL High 4-19 [facility] Sodium levelOrdered By: Aaron Tamayo on 02-06-2025 Sodium [Moles/Vol] 139 mmol/L 133-145 [facility] White blood cell (WBC) count Ordered By: Kerwin Tamayo on 02-06-2025 WBC (Bld) [#/Vol] 8.9 10*3/uL 4.4-11.0 [facility] CBC W Auto Differential pane l (Bld)on 11-06-2024 Basophils (Bld) [#/Vol] 0.08 x10*3/uL Normal 0.00-0.10 [facility] Comment on above: Performed By: #### 5 7021-8 #### MAGGI PARNELL ([id number]) [facility] ([facility]) [address] [place] [address] 18317 Basophils/100 WBC (Bld) 0.8 % Normal 0.0-2.0 [facility] Comment on above: Performed By: #### 7021-8 #### MAGGI PARNELL ([id number]) [facility] ([facility]) [address] [place] [address] 74089 Eosinophils (Bld) [#/Vol] 0.42 x10*3/uL High 0.00-0. 40 [facility] Comment on above: Performed By: #### 7021-8 #### MAGGI PARNELL ([id number]) [facility] ([facility]) [address] [place] [address] 60526 Eosinophils/100 WBC (Bld) 4.4 % Normal 0.0-6.0 [facility] Comment on above: Performed By: #### 7021-8 #### MAGGI PARNELL ([id number]) [facility] ([facility]) [address] [place] [address] 58055 Erythrocyte distribution width (RBC) [Ratio] 14.5 % Normal 11.5-14.5 [facility] Comment on above: Performed By: #### 5 7021-8 #### MAGGI PARNELL ([id number]) [facility] ([facility]) [address] [place] [address] 34212 Hematocrit (Bld) [Volume fraction] 34.5 % Low 41.0-52.0 [facility] Comment on above: Performed By: #### 7021-8 #### MAGGI PARNELL ([id number]) [facility] ([facility]) [address] [place] [address] 17837 Hemoglobin (Bld) [Mass/Vol] 10.6 g/dL Low 13.5-17.5 [facility] Comment on above: Performed By: #### 5 7021-8 #### MAGGI PARNELL ([id number]) [facility] ([facility]) [address] [place] [address] 63500 Immature granulocytes (Bld) [#/Vol] 0.03 x10*3/uL Normal 0.00-0.50 [facility] Comment on above: Performed By: #### 5 7021-8 #### MAGGI PARNELL ([id number]) [facility] ([facility]) [address] [place] [address] 08520 Immature granulocytes/100 WBC (Bld) 0.3 % Normal 0.0-0.9 [facility] Comment on above: Result Comment: Arielle ture Granulocyte Count (IG) includes promyelocytes, myelocytes and metamyelocytes but does not include bands. Percent differential counts (%) should be interpreted in the context of the absolute cell counts (cells/UL). Performed By: #### 5 7021-8 #### MAGGI PARNELL ([id number]) [facility] ([facility]) [address] [place] [address] 13614 Lymphocytes (Bld) [#/Vol] 2.35 x10*3/uL Normal 0.80-3. 00 [facility] Comment on above: Performed By: #### 5 7021-8 #### MAGGI PARNELL ([id number]) [facility] ([facility]) [address] [place] [address] 95921 Lymphocytes/100 WBC (Bld) 24.5 % Normal 13.0-44.0 [facility] Comment on above: Performed By: #### 5 7021-8 #### MAGGI PARNELL ([id number]) [facility] ([facility]) [address] [place] [address] 29540 MCH (RBC) [Entitic mass] 30.3 pg Normal 26.0-34.0 [facility] Comment on above: Performed By: #### 5 7021-8 #### MAGGI PARNELL ([id number]) [facility] ([facility]) [address] [place] [address] 74655 MCHC (RBC) [Mass/Vol] 30.7 g/dL Low 32.0-36.0 [facility] Comment on above: Performed By: #### 5 7021-8 #### MAGGI PARNELL ([id number]) [facility] ([facility]) [address] [place] [address] 02160 MCV (RBC) [Entitic vol] 99 fL Normal 80-100 [facility] Comment on above: Performed By: #### 5 7021-8 #### MAGGI PARNELL ([id number]) [facility] ([facility]) [address] [place] [address] 57446 Monocytes (Bld) [#/Vol] 0.82 x10*3/uL High 0.05-0.80 [facility] Comment on above: Performed By: #### 5 7021-8 #### MAGGI PARNELL ([id number]) [facility] ([facility]) [address] [place] [address] 82527 Monocytes/100 WBC (Bld) 8.6 % Normal 2.0-10.0 [facility] Comment on above: Performed By: #### 5 7021-8 #### MAGGI PARNELL ([id number]) [facility] ([facility]) [address] [place] [address] 06336 Neutrophils (Bld) [#/Vol] 5.89 x10*3/uL High 1.60-5. 50 [facility] Comment on above: Result Comment: Perc ent differential counts (%) should be interpreted in the context of the absolute cell counts (cells/uL). Performed By: #### 5 7021-8 #### MAGGI PARNELL ([id number]) [facility] ([facility]) [address] [place] [address] 12981 Neutrophils/100 WBC (Bld) 61.4 % Normal 40.0-80.0 [facility] Comment on above: Performed By: #### 5 7021-8 #### MAGGI PARNELL ([id number]) [facility] ([facility]) [address] [place] [address] 45571 Nucleated RBC/100 WBC (Bld) [Ratio] 0.0 /100 WBCs Normal 0.0-0.0 [facility] Comment on above: Performed By: #### 5 7021-8 #### MAGGI PARNELL ([id number]) [facility] ([facility]) [address] [place] [address] 96132 Platelets (Bld) [#/Vol] 229 x10*3/uL Normal 150-450 [facility] Comment on above: Performed By: #### 5 7021-8 #### MAGGI PARNELL ([id number]) [facility] ([facility]) [address] [place] [address] 14471 RBC (Bld) [#/Vol] 3.50 x10*6/uL Low 4.50-5.90 [facility] Comment on above: Performed By: #### 5 7021-8 #### MAGGI PARNELL ([id number]) [facility] ([facility]) [address] [place] [address] 22476 WBC (Bld) [#/Vol] 9.6 x10*3/uL Normal 4.4-11.3 [facility] Comment on above: Performed By: #### 5 7021-8 #### MAGGI PARNELL ([id number]) [facility] ([facility]) [address] [place] [address] 52333 Comprehensive metabolic 2000 panelon 11-06-2024 Albumin BCP dye [Mass/Vol] 3.7 g/dL Normal 3.4-5.0 [facility] Comment on above: Performed By: #### 1 4959-1 #### ALENA Paredes ([id number]) [facility] ([facility]) [address] [place] [address] ALP [Catalytic activity/Vol] 68 U/L Normal 33-136 [facility] Comment on above: Performed By: #### 1 4959-1 #### ALENA Paredes ([id number]) [facility] ([facility]) [address] [place] [address] ALT With P-5'-P [Catalytic activity/Vol] 19 U/L Normal 10-52 [facility] Comment on above: Result Comment: Twila ents treated with Sulfasalazine may generate falsely decreased results for ALT. Performed By: #### 1 4959-1 #### ALENA Paredes ([id number]) [facility] ([facility]) [address] [place] [address] Anion gap [Moles/Vol] 12 mmol/L Normal 10-20 [facility] Comment on above: Performed By: #### 1 4959-1 #### ALENA Paredes ([id number]) [facility] ([facility]) [address] [place] [address] AST With P-5'-P [Catalytic activity/Vol] 19 U/L Normal 9-39 [facility] Comment on above: Performed By: #### 1 4959-1 #### ALENA Paredes ([id number]) [facility] ([facility]) [address] [place] [address] Bilirubin [Mass/Vol] 0.3 mg/dL Normal 0.0-1.2 [facility] Comment on above: Performed By: #### 1 4959-1 #### ALENA Paredes ([id number]) [facility] ([facility]) [address] [place] [address]388 Calcium [Mass/Vol] 8.9 mg/dL Normal 8.6-10.3 [facility] Comment on above: Performed By: #### 1 4959-1 #### ALENA Paredes ([id number]) [facility] ([facility]) [address] [place] [address] 07094 Chloride [Moles/Vol] 108 mmol/L High 98-107 [facility] Comment on above: Performed By: #### 1 4959-1 #### ALENA Paredes ([id number]) [facility] ([facility]) [address] [place] [address] CO2 [Moles/Vol] 23 mmol/L Normal 21-32 [facility] Comment on above: Performed By: #### 1 4959-1 #### ALENA Paredes ([id number]) [facility] ([facility]) [address] [place] [address] Creatinine [Mass/Vol] 2.37 mg/dL High 0.50-1.30 [facility] Comment on above: Performed By: #### 1 4959-1 #### ALENA DAVENPORTER L ([id number]) [facility] ([facility]) [address] [place] [address] Glomerular filtration rate/1.73 sq M.predicted 27 mL/min/1.73m*2 Low >60 [facility] Comment on above: Result Comment: Calc ulations of estimated GFR are performed using the 2020 CKD-EPI Study Refit equation without the race variable for the IDMS-Traceable creatinine methods. https://jasn.asnjournals.org/content//ASN.20 85374373 Performed By: #### 1 4959-1 #### ALENA CORREA L ([id number]) [facility] ([facility]) [address] [place] [address]68 Glucose [Mass/Vol] 95 mg/dL Normal 74-99 [facility] Comment on above: Performed By: #### 1 4959-1 #### ALENA TOLBERTMOTZER L ([id number]) [facility] ([facility]) [address] [place] [address] Potassium [Moles/Vol] 4.9 mmol/L Normal 3.5-5.3 [facility] Comment on above: Performed By: #### 1 4959-1 #### ALENA TOLBERTMOTZER L ([id number]) [facility] ([facility]) [address] [place] [address] 28738 Protein [Mass/Vol] 6.4 g/dL Normal 6.4-8.2 [facility] Comment on above: Performed By: #### 1 4959-1 #### ALENA TOLBERTMOTZER L ([id number]) [facility] ([facility]) [address] [place] [address] 87199 Sodium [Moles/Vol] 138 mmol/L Normal 136-145 [facility] Comment on above: Performed By: #### 1 4959-1 #### ALENA TOLBERTMOTZALIZA L ([id number]) [facility] ([facility]) [address] [place], [place] [address] Urea nitrogen [Mass/Vol] 48 mg/dL High 6-23 [facility] Comment on above: Performed By: #### 1 4959-1 #### ALENA Paredes ([id number]) [facility] ([facility]) [address] [place], [place] [address] HbA1c (Bld) [Mass fraction]o n 11-06-2024 Average glucose Estimated from glycated hemoglobin (Bld) [Mass/Vol] 220 mg/dL Normal Not Established [facility] Comment on above: Order Comment: Diagn osis of Rxmmlkgh-KpzxeqBml-Rfzzqwkf: < or = 5.6%Increased risk for developing diabetes: 5.7-6.4%Diagnostic of diabetes: > or = 6.5% Performed By: #### 1 4959-1 #### ALENA Paredes ([id number]) [facility] ([facility]) [address] [place], [place] [address] Hemoglobin A1c/Hemoglobin.to alcira 11-06-2024 HbA1c (Bld) [Mass fraction] 9.3 % High See comment [facility] Comment on above: Order Comment: Diagn osis of Jebumrsq-OjawriRsy-Tszavmtu: < or = 5.6%Increased risk for developing diabetes: 5.7-6.4%Diagnostic of diabetes: > or = 6.5% Performed By: #### 1 4959-1 #### ALENA Paredes ([id number]) [facility] ([facility]) [address] [place], [place] [address] Thyrotropinon 11-06-2024 TSH Qn 2.65 m[IU]/L Normal 0.44-3.98 [facility] Comment on above: Order Comment: TSH t esting is performed using different testing methodology at [facility] than at other [facility]. Direct result comparisons should only be made within the same method. Performed By: #### 1 4959-1 #### ALENA Paredes ([id number]) [facility] ([facility]) [address] [place] [address] Thyroxine.freeon 11-06-2024 Free T4 [Mass/Vol] 0.84 ng/dL Normal 0.61-1.12 [facility] Comment on above: Order Comment: Thyro xine Free testing is performed using different testing methodology at [facility] than at other [facility]. 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 Performed By: #### 4 6124 #### [facility] [address] [place], [place] [address] Moody Martinez M.D. 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 [id number] Anion gap [Moles/Vol] 17 mmol/L Normal 10-20 [facility] Comment on above: Order Comment: [facility] has implemented the eGFR calculation approach that does not have a coefficient for race that conforms to the NKF-ASN Task Force Recommendations. Performed By: #### 4 6124 #### [facility] [address] [place] [address] Moody Martinez M.D. [id number] Calcium [Mass/Vol] 8.5 mg/dL Normal 8.4-10.2 [facility] Comment on above: Order Comment: [facility] has implemented the eGFR calculation approach that does not have a coefficient for race that conforms to the NKF-ASN Task Force Recommendations. Performed By: #### 4 6124 #### [facility] [address] [place] [address] Moody Martinez M.D. [id number] Chloride [Moles/Vol] 108 mmol/L Normal 98-108 [facility] Comment on above: Order Comment: [facility] has implemented the eGFR calculation approach that does not have a coefficient for race that conforms to the NKF-ASN Task Force Recommendations. Performed By: #### 4 6124 #### [facility] [address] [place] [address] Moody Martinez M.D. [id number] Creatinine [Mass/Vol] 2.44 mg/dL High 0.80-1.30 [facility] Comment on above: Order Comment: [facility] has implemented the eGFR calculation approach that does not have a coefficient for race that conforms to the NKF-ASN Task Force Recommendations. Performed By: #### 4 6112 #### [facility] [address] [place] [address] Moody Martinez M.D. [id number] EGFR 26 mL/min/1.73 m2 Low >=60 [facility] Comment on above: Order Comment: [facility] has implemented the eGFR calculation approach that does not have a coefficient for race that conforms to the NKF-ASN Task Force Recommendations. Result Comment: Albin mated GFR was calculated using the 2020 CKD-EPI creatinine equation. Performed By: #### 4 6124 #### [facility] [address] [place] [address] Moody Martinez M.D. [id number] Glucose [Mass/Vol] 107 mg/dL High 65-99 [facility] Comment on above: Order Comment: [facility] has implemented the eGFR calculation approach that does not have a coefficient for race that conforms to the NKF-ASN Task Force Recommendations. Performed By: #### 4 6124 #### [facility] [address] [place] [address] Moody Martinez M.D. [id number] HCO3 (Bld) [Moles/Vol] 18 mmol/L Low 21-32 [facility] Comment on above: Order Comment: [facility] has implemented the eGFR calculation approach that does not have a coefficient for race that conforms to the NKF-ASN Task Force Recommendations. Performed By: #### 4 6124 #### [facility] [address] [place] [address] Moody Martinez M.D. [id number] Potassium [Moles/Vol] 4.1 mmol/L Normal 3.5-5.1 [facility] Comment on above: Order Comment: [facility] has implemented the eGFR calculation approach that does not have a coefficient for race that conforms to the NKF-ASN Task Force Recommendations. Performed By: #### 4 [id number] #### LAB [address] [address] Moody Martinez M.D. [id number] Sodium [Moles/Vol] 139 mmol/L Normal 135-145 [facility] Comment on above: Order Comment: [facility] has implemented the eGFR calculation approach that does not have a coefficient for race that conforms to the NKF-ASN Task Force Recommendations. Performed By: #### 4 6124 #### LAB [address] [place], [place] [address] Moody Martinez M.D. [id number] Urea nitrogen [Mass/Vol] 85 mg/dL High 8-25 [facility] Comment on above: Order Comment: [facility] has implemented the eGFR calculation approach that does not have a coefficient for race that conforms to the NKF-ASN Task Force Recommendations. Performed By: #### 4 6124 #### LAB [address] [address] Moody Martinez M.D. [id number] Urea nitrogen/Creatinine [Mass ratio] 34.8 mg/mg High 10.0-20.0 [facility] Comment on above: Order Comment: [facility] has implemented the eGFR calculation approach that does not have a coefficient for race that conforms to the NKF-ASN Task Force Recommendations. Performed By: #### 4 6124 #### LAB [address] [address] Moody Martinez M.D. [id number] BETA-HYDROXYBUTYRATEon 10-28 BETA-HYDROXYBUTYRATE 0.1 mmol/L Normal 0.0-0.3 [facility] Comment on above: Performed By: #### 4 5139 #### LAB [address] [address] Moody Martinez M.D. [id number] BETA-HYDROXYBUTYRATE < Normal 0.0-0.3 [facility] Comment on above: Performed By: #### 4 5139 #### LAB [address] [place], [place] [address] Moody Martinez M.D. [id number] Basic metabolic 2000 panelon 10-28-2024 Anion gap [Moles/Vol] 16 mmol/L 10 - 2 0 mmol/L [facility] Calcium [Mass/Vol] 8.5 mg/dL 8.4 - 10. 2 mg/dL [facility] Chloride [Moles/Vol] 108 mmol/L 98 - 10 8 mmol/L [facility] Creatinine [Mass/Vol] 2.31 mg/dL High 0.80 - 1.30 mg/dL [facility] GFR/1.73 sq M.predicted CKD-EPI (S/P/Bld) [Vol rate/Area] 28 Low - PINF [facility] Comment on above: Estimated GFR was ca lculated using the 2020 CKD-EPI creatinine equation. Glucose [Mass/Vol] 95 mg/dL 65 - 99 mg/dL [facility] HCO3 [Moles/Vol] 19 mmol/L Low 21 - 32 mmol/L [facility] Potassium [Moles/Vol] 4.1 mmol/L 3.5 - 5.1 mmol/L [facility] Sodium [Moles/Vol] 139 mmol/L 135 - 145 mmol/L [facility] Urea nitrogen [Mass/Vol] 82 mg/dL High 8 - 25 mg/d L [facility] Urea nitrogen/Creatinine [Mass ratio] 35.5 mg/mg High 10.0 - 20.0 [facility] has implemented the eGFR calculation approach that does not have a coefficient for race that conforms to the NKF-ASN Task Force Recommendations. [facility] Anion gap [Moles/Vol] 17 mmol/L 10 - 2 0 mmol/L [facility] Calcium [Mass/Vol] 8.5 mg/dL 8.4 - 10. 2 mg/dL [facility] Chloride [Moles/Vol] 108 mmol/L 98 - 10 8 mmol/L [facility] Creatinine [Mass/Vol] 2.44 mg/dL High 0.80 - 1.30 mg/dL [facility] GFR/1.73 sq M.predicted CKD-EPI (S/P/Bld) [Vol rate/Area] 26 Low - PINF [facility] Comment on above: Estimated GFR was ca lculated using the 2020 CKD-EPI creatinine equation. Glucose [Mass/Vol] 107 mg/dL High 65 - 99 mg/dL [facility] HCO3 [Moles/Vol] 18 mmol/L Low 21 - 32 mmol/L [facility] Potassium [Moles/Vol] 4.1 mmol/L 3.5 - 5.1 mmol/L [facility] Sodium [Moles/Vol] 139 mmol/L 135 - 145 mmol/L [facility] Urea nitrogen [Mass/Vol] 85 mg/dL High 8 - 25 mg/d L [facility] Urea nitrogen/Creatinine [Mass ratio] 34.8 mg/mg High 10.0 - 20.0 [facility] has implemented the eGFR calculation approach that does not have a coefficient for race that conforms to the NKF-ASN Task Force Recommendations. [facility] Anion gap [Moles/Vol] 16 mmol/L 10 - 2 0 mmol/L [facility] Calcium [Mass/Vol] 8.3 mg/dL Low 8.4 - 10. 2 mg/dL [facility] Chloride [Moles/Vol] 103 mmol/L 98 - 10 8 mmol/L [facility] Creatinine [Mass/Vol] 2.6 mg/dL High 0.80 - 1.30 mg/dL [facility] GFR/1.73 sq M.predicted CKD-EPI (S/P/Bld) [Vol rate/Area] 24 Low - PINF [facility] Comment on above: Estimated GFR was ca lculated using the 2020 CKD-EPI creatinine equation. Glucose [Mass/Vol] 495 mg/dL Critically high 65 - 99 mg/d L [facility] HCO3 [Moles/Vol] 18 mmol/L Low 21 - 32 mmol/L [facility] Potassium [Moles/Vol] 5 mmol/L 3.5 - 5.1 mmol/L [facility] Sodium [Moles/Vol] 132 mmol/L Low 135 - 145 mmol/L [facility] Urea nitrogen [Mass/Vol] 93 mg/dL High 8 - 25 mg/d L [facility] Urea nitrogen/Creatinine [Mass ratio] 35.8 mg/mg High 10.0 - 20.0 [facility] has implemented the eGFR calculation approach that does not have a coefficient for race that conforms to the NKF-ASN Task Force Recommendations. [facility] Beta hydroxybutyrate [Moles/ Vol]on 10-28-2024 Interpretation and review of laboratory results Normal [facility] Interpretation and review of laboratory results Normal [facility] Interpretation and review of laboratory results Abnormal [facility] Beta-Hydroxybutyrateon 10-28 Beta hydroxybutyrate [Moles/Vol] 0.1 mmol/L 0.0 - 0.3 mmol/L [facility] Beta hydroxybutyrate [Moles/Vol] mmol/L 0.0 - 0.3 mmol/L [facility] Beta hydroxybutyrate [Moles/Vol] 0.4 mmol/L High 0.0 - 0.3 mmol/L [facility] CBC Auto Differentialon 12-2 8-2024 Basophils (Bld) [#/Vol] 0.08 10*3/uL [facility] Basophils/100 WBC (Bld) 0.8 % [facility] Eosin[facility] (Bld[facility] [#/Vol] 0.06 10*3/uL [facility] Eosinophils/100 WBC (Bld) 0.6 % [facility] Erythrocyte distribution width (RBC) [Entitic vol] 13.6 % 11.6 - 14.8 % [facility] Hematocrit (Bld) [Volume fraction] 29 % Low 41.0 - 53.0 % [facility] Hemoglobin (Bld) [Mass/Vol] 9.3 g/dL Low 13.5 - 17.5 g/dL [facility] Immature granulocytes (Bld) [#/Vol] 0.03 10*3/uL [facility] Immature granulocytes/100 WBC (Bld) 0.3 % [facility] Comment on above: The IG parameter is the percentage of metamyelocytes, myelocytes and promyelocytes. An immature granulocyte count (IG) of 1% or more suggests the possibility of infection, an IG count of 3% is very likely related to an infection. Interpretation and review of laboratory results Abnormal [facility] Lymphocytes (Bld) [#/Vol] 2.94 10*3/uL [facility] Lymphocytes/100 WBC (Bld) 28.7 % [facility] MCH (RBC) [Entitic mass] 30.3 pg 26. 0 - 34.0 pg [facility] MCHC (RBC) [Mass/Vol] 32.1 g/dL 31.0 - 37.0 g/dL [facility] MCV (RBC) [Entitic vol] 94.5 fL 80.0 - 100.0 fL [facility] Monocytes (Bld) [#/Vol] 1.02 10*3/uL High [facility] Monocytes/100 WBC (Bld) 10 % [facility] Neutrophils (Bld) [#/Vol] 6.12 10*3/uL [facility] Neutrophils/100 WBC (Bld) 59.6 % [facility] Nucleated RBC (Bld) [#/Vol] 0 10*3/uL [facility] Nucleated RBC/100 WBC (Bld) [Ratio] 0 % [facility] Platelet mean volume (Bld) [Entitic vol] 10.8 fL 9.4 - 12.4 fL [facility] Platelets (Bld) [#/Vol] 188 10*3/uL [facility] RBC (Bld) [#/Vol] 3.07 10*6/uL Low [facility] WBC (Bld) [#/Vol] 10.25 10*3/uL [facility] CBC WITH AUTO DIFFERENTIALon 10-28-2024 AUTO NRBC 0.0 % Normal [facility] Comment on above: Performed By: #### L [id number] #### LAB [address] [address] Moody Martinez M.D. [id number] AUTO NRBC ABS COUNT 0.00 K/mcL Normal 0.00-0.00 [facility] Comment on above: Performed By: #### L [id number] #### LAB [address] [address] Moody Martinez M.D. [id number] BASOPHILS ABSOLUTE COUNT 0.08 K/mcL Normal 0.00-0.30 [facility] Comment on above: Performed By: #### L [id number] #### LAB [address] [place] [address] Moody Martinez M.D. [id number] Basophils/100 WBC (Bld) 0.8 % Normal [facility] Comment on above: Performed By: #### L [id number] #### LAB [address] [place] [address] Moody Martinez M.D. [id number] Eosinophils (Bld) [#/Vol] 0.06 10*3/uL Normal 0.00-0.5 0 [facility] Comment on above: Performed By: #### L [id number] #### LAB [address] [place] [address] Moody Martinez M.D. [id number] Eosinophils/100 WBC (Bld) 0.6 % [facility] Comment on above: Performed By: #### L [id number] #### LAB [address] [place] [address] Moody Martinez M.D. [id number] Erythrocyte distribution width (RBC) [Ratio] 13.6 % Normal 11.6-14.8 [facility] Comment on above: Performed By: #### L [id number] #### LAB [address] [address] Moody Martinez M.D. [id number] Hematocrit (Bld) [Volume fraction] 29.0 % Low 41.0-53.0 [facility] Comment on above: Performed By: #### L [id number] #### LAB [address] [address] Moody Martinez M.D. [id number] Hemoglobin (Bld) [Mass/Vol] 9.3 g/dL Low 13.5-17.5 [facility] Comment on above: Performed By: #### L [id number] #### LAB [address] [address] Moody Martinez M.D. [id number] IG ABSOLUTE 0.03 K/mcL Normal 0.00-0.30 [facility] Comment on above: Performed By: #### L [id number] #### LAB [address] [place] [address] Moody Martinez M.D. [id number] IG PERCENT 0.30 % [facility] Comment on above: Result Comment: The IG parameter is the percentage of metamyelocytes, myelocytes and promyelocytes. An immature granulocyte count (IG) of 1% or more suggests the possibility of infection, an IG count of 3% is very likely related to an infection. Performed By: #### L [id number] #### LAB [address] [address] Moody Martinez M.D. [id number] Lymphocytes (Bld) [#/Vol] 2.94 10*3/uL Normal 0.90-4.0 0 [facility] Comment on above: Performed By: #### L [id number] #### LAB [address] [address] Moody Martinez M.D. [id number] Lymphocytes/100 WBC (Bld) 28.7 % Normal [facility] Comment on above: Performed By: #### L [id number] #### LAB [address] [address] Moody Martinez M.D. [id number] MCH (RBC) [Entitic mass] 30.3 pg Normal 26.0-34.0 [facility] Comment on above: Performed By: #### L [id number] #### LAB [address] [address] Moody Martinez M.D. [id number] MCV (RBC) [Entitic vol] 94.5 fL Normal 80.0-100.0 [facility] Comment on above: Performed By: #### L [id number] #### LAB [address] [address] Moody Martinez M.D. [id number] MEAN CORPUSCULAR HEMOGLOBIN CONC 32.1 g/dL Normal 31.0-37.0 [facility] Comment on above: Performed By: #### L [id number] #### LAB [address] [address] Moody Martinez M.D. [id number] Monocytes (Bld) [#/Vol] 1.02 10*3/uL High 0.30-0.90 [facility] Comment on above: Performed By: #### L [id number] #### LAB [address] [address] Moody Martinez M.D. [id number] Monocytes/100 WBC (Bld) 10.0 % Normal [facility] Comment on above: Performed By: #### L [id number] #### LAB [address] [address] Moody Martinez M.D. [id number] NEUTROPHILS ABSOLUTE COUNT 6.12 K/mcL Normal 1.70-7.00 [facility] Comment on above: Performed By: #### L [id number] #### LAB [address] [address] Moody Martinez M.D. [id number] Neutrophils/100 WBC (Bld) 59.6 % Normal [facility] Comment on above: Performed By: #### L [id number] #### MH LAB [address] [address] Moody Martinez M.D. [id number] Platelet mean volume (Bld) [Entitic vol] 10.8 fL Normal 9.4-12.4 [facility] Comment on above: Performed By: #### L [id number] #### LAB [address] [address] Moody Martinez M.D. [id number] Platelets (Bld) [#/Vol] 188 10*3/uL Normal 150-400 [facility] Comment on above: Performed By: #### L [id number] #### MH LAB [address] [address] Moody Martinez M.D. [id number] RBC (Bld) [#/Vol] 3.07 10*6/uL Low 4.50-5.90 [facility] Comment on above: Performed By: #### L [id number] #### MH LAB [address] [address] Moody Martinez M.D. [id number] WBC (Bld) [#/Vol] 10.25 10*3/uL Normal 4.50-11.00 [facility] Comment on above: Performed By: #### L [id number] #### LAB [address] [address] Moody Martinez M.D. [id number] CONSULTon 10-28-2024 CONSULT Attestation signed by Pedro West MD at 10/29/2024 9:27 AM Patient was evaluated by Keeley Patton CNP. Patient ID: Patient Name: Enoc Armando Admit Date: 10/27/2024 MR #: [id number] [facility] #: [id number] : 1945 Current location: [facility] Physicians: Ryley Jeter MD (Family); Dr Benitez (Referring) Reason for consult: Type 1 diabetes [...] to Nutrition therapy Subjective: Brief HPI: Enoc Armando is a 78 y.o. male patient of Ryley Jeter MD with history of coronary artery disease, type 1 diabetes, diastolic CHF, hypertension dyslipidemia COPD and lumbar spinal stenosis with chronic low back pain presented to [facility] on 10/27/2024 for an elective left heart [...] Diagnosed in 1994. Patient is managed by [facility] endocrinology for his type 1 diabetes. He is currently taking Admelog insulin: 10 units at mealtime Lantus insulin: 12 units at bedtime Current monitoring regimen: home blood tests - 3 times daily Complications of diabetes include: Retinopathy: Negative Nephropathy: Positive Peripheral Neuropathy: Positive Autonomic Neuropathy: Negative Allergies: Allergies Allergen Reactions Oakpauy-Eaj-Tmb Reductase Inhibitors Muscle cramps Home Medications: Outpatient [...] MG table (more content not included)... Normal [facility] Glucose (Bld) [Mass/Vol]on 12-29-2023 Glucose [Mass/Vol] 321 mg/dL High 65 - 99 mg/dL [facility] Interpretation and review of laboratory results Abnormal [facility] Glucose [Mass/Vol] 288 mg/dL High 65 - 99 mg/dL [facility] Interpretation and review of laboratory results Abnormal [facility] Glucose [Mass/Vol] 130 mg/dL High 65 - 99 mg/dL [facility] Interpretation and review of laboratory results Abnormal [facility] Glucose [Mass/Vol] 55 mg/dL Critically low 65 - 99 mg/dL [facility] Interpretation and review of laboratory results Abnormal [facility] Critical result acted upon time of test. Test performed at bedside. [facility] Glucose [Mass/Vol] 85 mg/dL 65 - 99 mg/dL [facility] Interpretation and review of laboratory results Normal [facility] Glucose [Mass/Vol] 111 mg/dL High 65 - 99 mg/dL [facility] Interpretation and review of laboratory results Abnormal [facility] Glucose [Mass/Vol] 69 mg/dL 65 - 99 mg/dL [facility] Interpretation and review of laboratory results Normal [facility] Glucose [Mass/Vol] 76 mg/dL 65 - 99 mg/dL [facility] Interpretation and review of laboratory results Normal [facility] Glucose [Mass/Vol] 94 mg/dL 65 - 99 mg/dL [facility] Interpretation and review of laboratory results Normal [facility] Glucose [Mass/Vol] 115 mg/dL High 65 - 99 mg/dL [facility] Interpretation and review of laboratory results Abnormal [facility] Glucose [Mass/Vol] 168 mg/dL High 65 - 99 mg/dL [facility] Interpretation and review of laboratory results Abnormal [facility] Glucose [Mass/Vol] 215 mg/dL High 65 - 99 mg/dL [facility] Interpretation and review of laboratory results Abnormal [facility] Glucose [Mass/Vol] 336 mg/dL High 65 - 99 mg/dL [facility] Interpretation and review of laboratory results Abnormal [facility] Glucose [Mass/Vol] 443 mg/dL Critically high 65 - 99 mg/d L [facility] Interpretation and review of laboratory results Abnormal [facility] Critical result acted upon time of test. Test performed at bedside. [facility] HbA1c (Bld) [Mass fraction]o n 10-28-2024 Average glucose Estimated from glycated hemoglobin (Bld) [Mass/Vol] 237 mg/dL High 74 - 114 mg/dL [facility] Interpretation and review of laboratory results Abnormal [facility] Hemoglobin A1con 10-28-2024 HbA1c (Bld) [Mass fraction] 9.9 % High 4.2 - 5.6 % [facility] MAGNESIUM LEVELon 10-28-2024 Magnesium [Mass/Vol] 2.6 mg/dL High 1.6-2.4 [facility] Comment on above: Performed By: #### 4 [id number] #### MH LAB [address] [place], [place] [address] Moody Martinez M.D. [id number] Magnesium [Mass/Vol] 2.6 mg/dL High 1.6-2.4 [facility] Comment on above: Performed By: #### 4 [id number] #### LAB [address] [place], [place] [address] Moody Martinez M.D. [id number] Magnesium Levelon 10-28-2024 Magnesium [Mass/Vol] 2.6 mg/dL High 1.6 - 2 .4 mg/dL [facility] Magnesium [Mass/Vol] 2.6 mg/dL High 1.6 - 2 .4 mg/dL [facility] Magnesium [Mass/Vol] 2.6 mg/dL High 1.6 - 2 .4 mg/dL [facility] No Panel Informationon 10-28 Interpretation and review of laboratory results Abnormal [facility] Interpretation and review of laboratory results Abnormal [facility] Interpretation and review of laboratory results Abnormal [facility] PHOSPHORUSon 10-28-2024 Phosphate [Mass/Vol] 4.7 mg/dL High 2.3-3.7 [facility] Comment on above: Performed By: #### 4 [id number] ####MH LAB [address] [address] Moody Martinez M.D. [id number] POC GLUCOSE - [facility] 024 Glucose [Mass/Vol] 321 mg/dL High [address] [place] [address] Comment on above: Performed By: #### L [id number] #### MH LAB [address] [address] Moody Martinez M.D. [id number] Glucose [Mass/Vol] 288 mg/dL High [address] [place] [address] Comment on above: Performed By: #### 4 6932 ####[facility] LAB [address] [address] Moody Martinez M.D. [id number] Glucose [Mass/Vol] 130 mg/dL High [address] [place] [address] Comment on above: Performed By: #### 4 6932 ####MH LAB [address] [address] Moody Martinez M.D. [id number] Glucose [Mass/Vol] 55 mg/dL Off scale low [address] [place] [address] Comment on above: Order Comment: Criti christian result acted upon time of test. Test performed at bedside. Performed By: #### 4 6942 ####MH LAB [address] [address] Moody Martinez M.D. [id number] Glucose [Mass/Vol] 85 mg/dL Normal [address] [place] [address] Comment on above: Performed By: #### 4 6913 ####[facility] LAB [address] [address] Moody Martinez M.D. [id number] Glucose [Mass/Vol] 111 mg/dL High [address] [place] [address] Comment on above: Performed By: #### L [id number] #### LAB [address] [address] Moody Martinez M.D. [id number] Glucose [Mass/Vol] 69 mg/dL Normal [address] [place] [address] Comment on above: Performed By: #### 4 [id number] #### LAB [address] [address] Moody Martinez M.D. [id number] Glucose [Mass/Vol] 76 mg/dL Normal [address] [place] [address] Comment on above: Performed By: #### 4 [id number] #### LAB [address] [address] Moody Martinez M.D. [id number] Glucose [Mass/Vol] 94 mg/dL Normal [address] [place] [address] Comment on above: Performed By: #### 4 [id number] #### LAB [address] [address] Moody Martinez M.D. [id number] Glucose [Mass/Vol] 115 mg/dL High [address] [place] [address] Comment on above: Performed By: #### 4 [id number] #### LAB [address] [address] Moody Martinez M.D. [id number] Glucose [Mass/Vol] 168 mg/dL High [address] [place] [address] Comment on above: Performed By: #### L [id number] #### LAB [address] [address] Moody Martinez M.D. [id number] Glucose [Mass/Vol] 215 mg/dL High [address] [place] [address] Comment on above: Performed By: #### 4 [id number] #### LAB [address] [address] Moody Martinez M.D. [id number] Glucose [Mass/Vol] 336 mg/dL High 65-99 [facility] Comment on above: Performed By: #### 4 [id number] #### LAB [address] [place], [place] [address] Moody Martinez M.D. [id number] Phosphoruson 10-28-2024 Phosphate [Mass/Vol] 4.7 mg/dL High 2.3 - 3 .7 mg/dL [facility] Phosphate [Mass/Vol] 4.4 mg/dL High 2.3 - 3 .7 mg/dL [facility] ABORH VERIFICATIONon 024 ABO and Rh group Nom (Bld) Blood group A Rh(D) positive Normal [facility] ABO and Rh group Nom (Bld) ABO/Rh Verification [facility] Comment on above: Result Comment: Twila ent's ABO/Rh is verified. ABOR Verificationon 024 ABO and Rh group Nom (Bld) Blood group A Rh(D) positive [facility] ABO and Rh group Nom (Bld) ABO/Rh Verification [facility] Comment on above: Patient's ABO/Rh is verified. [facility] AMYLASEon 10-27-2024 Amylase [Catalytic activity/Vol] 26.8 U/L Normal 13.0-53.0 [facility] Comment on above: Performed By: #### 4 [id number] #### LAB [address] [place], [place] [address] Moody Martinez M.D. [id number] APTTon 10-27-2024 aPTT Coag (Bld) [Time] 74 s High [facility] aPTT Coag (Bld) [Time] 74 s High 23-34 [facility] Comment on above: Order Comment: Thera peutic range for APTT's is 68 - 104 seconds Performed By: #### 4 5113 #### LAB [address] [place], [place] [address] Moody Martinez M.D. [id number] Amylaseon 10-27-2024 Amylase.pancreatic [Catalytic activity/Vol] 26.8 U/L 13.0 - 53.0 U/L [facility] BASIC METABOLIC PANELon 10-02 Anion gap [Moles/Vol] 16 mmol/L Normal 10-20 [facility] Comment on above: Order Comment: [facility] has implemented the eGFR calculation approach that does not have a coefficient for race that conforms to the NKF-ASN Task Force Recommendations. Performed By: #### 4 6932 #### LAB [address] [place], [place] [address] Moody Martinez M.D. [id number] Calcium [Mass/Vol] 8.3 mg/dL Low 8.4-10.2 [facility] Comment on above: Order Comment: [facility] has implemented the eGFR calculation approach that does not have a coefficient for race that conforms to the NKF-ASN Task Force Recommendations. Performed By: #### 4 6932 #### LAB [address] [place], [place] [address] Moody Martinez M.D. [id number] Chloride [Moles/Vol] 103 mmol/L Normal 98-108 [facility] Comment on above: Order Comment: [facility] has implemented the eGFR calculation approach that does not have a coefficient for race that conforms to the NKF-ASN Task Force Recommendations. Performed By: #### 4 [id number] #### LAB [address] [place], [place] [address] Moody Martinez M.D. [id number] Creatinine [Mass/Vol] 2.60 mg/dL High 0.80-1.30 [facility] Comment on above: Order Comment: [facility] has implemented the eGFR calculation approach that does not have a coefficient for race that conforms to the NKF-ASN Task Force Recommendations. Performed By: #### 4 [id number] #### LAB [address] [place], [place] [address] Moody Martinez M.D. [id number] EGFR 24 mL/min/1.73 m2 Low >=60 [facility] Comment on above: Order Comment: [facility] has implemented the eGFR calculation approach that does not have a coefficient for race that conforms to the NKF-ASN Task Force Recommendations. Result Comment: Albin mated GFR was calculated using the 2020 CKD-EPI creatinine equation. Performed By: #### 4 [id number] #### [facility] LAB [address] [place] [address] Moody Martinez M.D. [id number] Glucose [Mass/Vol] 495 mg/dL Off scale high 65-99 [facility] Comment on above: Order Comment: [facility] has implemented the eGFR calculation approach that does not have a coefficient for race that conforms to the NKF-ASN Task Force Recommendations. Performed By: #### 4 [id number] #### LAB [address] [place] [address] Moody Martinez M.D. [id number] HCO3 (Bld) [Moles/Vol] 18 mmol/L Low 21-32 [facility] Comment on above: Order Comment: [facility] has implemented the eGFR calculation approach that does not have a coefficient for race that conforms to the NKF-ASN Task Force Recommendations. Performed By: #### 4 [id number] #### LAB [address] [place] [address] Moody Martinez M.D. [id number] Potassium [Moles/Vol] 5.0 mmol/L Normal 3.5-5.1 [facility] Comment on above: Order Comment: [facility] has implemented the eGFR calculation approach that does not have a coefficient for race that conforms to the NKF-ASN Task Force Recommendations. Performed By: #### 4 6902 #### [facility] LAB [address] [place] [address] Moody Martienz M.D. [id number] Sodium [Moles/Vol] 132 mmol/L Low 135-145 [facility] Comment on above: Order Comment: [facility] has implemented the eGFR calculation approach that does not have a coefficient for race that conforms to the NKF-ASN Task Force Recommendations. Performed By: #### 4 6968 #### [facility] LAB [address] [place] [address] Moody Martinez M.D. [id number] Urea nitrogen [Mass/Vol] 93 mg/dL High 8-25 [facility] Comment on above: Order Comment: [facility] has implemented the eGFR calculation approach that does not have a coefficient for race that conforms to the NKF-ASN Task Force Recommendations. Performed By: #### 4 [id number] #### LAB [address] [place] [address] Moody Martinez M.D. [id number] Urea nitrogen/Creatinine [Mass ratio] 35.8 mg/mg High 10.0-20.0 [facility] Comment on above: Order Comment: [facility] has implemented the eGFR calculation approach that does not have a coefficient for race that conforms to the NKF-ASN Task Force Recommendations. Performed By: #### 4 [id number] #### LAB [address] [place] [address] Moody Martinez M.D. [id number] BETA-HYDROXYBUTYRATEon 10-27 BETA-HYDROXYBUTYRATE 0.4 mmol/L High 0.0-0.3 [facility] Comment on above: Performed By: #### 4 5139 #### LAB [address] [place] [address] Moody Martinez M.D. [id number] BETA-HYDROXYBUTYRATE 2.3 mmol/L High 0.0-0.3 [facility] Comment on above: Performed By: #### 4 [id number] #### LAB [address] [place] [address] Moody Martinez M.D. [id number] BETA-HYDROXYBUTYRATE 0.7 mmol/L High 0.0-0.3 [facility] Comment on above: Performed By: #### 4 6932 #### LAB [address] [place] [address] Moody Martinez M.D. [id number] BILIRUBIN, DIRECTon 10-27-20 24 BILIRUBIN, DIRECT < Normal 0.0-0.4 [facility] Comment on above: Performed By: #### 4 5145 #### LAB [address] [place] [address] Moody Martinez M.D. [id number] Beta hydroxybutyrate [Moles/ Vol]on 10-27-2024 Interpretation and review of laboratory results Abnormal [facility] Interpretation and review of laboratory results Abnormal [facility] Beta-Hydroxybutyrateon 10-27 Beta hydroxybutyrate [Moles/Vol] 2.3 mmol/L High 0.0 - 0.3 mmol/L [facility] Beta hydroxybutyrate [Moles/Vol] 0.7 mmol/L High 0.0 - 0.3 mmol/L [facility] Bilirubin.direct [Mass/Vol]o n 10-27-2024 Bilirubin.conjugated [Mass/Vol] mg/dL 0.0 - 0.4 mg/dL [facility] Interpretation and review of laboratory results Normal [facility] Blood type and Indirect anti body screen panel (Bld)on 10-27-2024 ABO and Rh group Nom (Bld) Blood group A Rh(D) positive [facility] Blood group antibody screen Ql Negative [facility] Specimen Expires 10/30/2024 23:59 EST [facility] CBC Auto Differentialon 10-02 Basophils (Bld) [#/Vol] 0.04 10*3/uL [facility] Basophils/100 WBC (Bld) 0.5 % [facility] Eosinophils (Bld) [#/Vol] 0 10*3/uL [facility] Eosinophils/100 WBC (Bld) 0 % [facility] Erythrocyte distribution width (RBC) [Entitic vol] 13.7 % 11.6 - 14.8 % [facility] Hematocrit (Bld) [Volume fraction] 34.8 % Low 41.0 - 53.0 % [facility] Hemoglobin (Bld) [Mass/Vol] 11.2 g/dL Low 13.5 - 17.5 g/dL [facility] Immature granulocytes (Bld) [#/Vol] 0.04 10*3/uL [facility] Immature granulocytes/100 WBC (Bld) 0.5 % [facility] Comment on above: The IG parameter is the percentage of metamyelocytes, myelocytes and promyelocytes. An immature granulocyte count (IG) of 1% or more suggests the possibility of infection, an IG count of 3% is very likely related to an infection. Interpretation and review of laboratory results Abnormal [facility] Lymphocytes (Bld) [#/Vol] 1.2 10*3/uL [facility] Lymphocytes/100 WBC (Bld) 13.8 % [facility] MCH (RBC) [Entitic mass] 30 pg 26. 0 - 34.0 pg [facility] MCHC (RBC) [Mass/Vol] 32.2 g/dL 31.0 - 37.0 g/dL [facility] MCV (RBC) [Entitic vol] 93.3 fL 80.0 - 100.0 fL [facility] Monocytes (Bld) [#/Vol] 0.11 10*3/uL Low [facility] Monocytes/100 WBC (Bld) 1.3 % [facility] Neutrophils (Bld) [#/Vol] 7.32 10*3/uL High [facility] Neutrophils/100 WBC (Bld) 83.9 % [facility] Nucleated RBC (Bld) [#/Vol] 0 10*3/uL [facility] Nucleated RBC/100 WBC (Bld) [Ratio] 0 % [facility] Platelet mean volume (Bld) [Entitic vol] 11.2 fL 9.4 - 12.4 fL [facility] Platelets (Bld) [#/Vol] 234 10*3/uL [facility] RBC (Bld) [#/Vol] 3.73 10*6/uL [facility] WBC (Bld) [#/Vol] 8.71 10*3/uL [facility] CBC WITH AUTO DIFFERENTIALon 10-27-2024 AUTO NRBC 0.0 % Normal [facility] Comment on above: Performed By: #### L [id number] #### LAB [address] [place], [place] [address] Moody Martinez M.D. [id number] AUTO NRBC ABS COUNT 0.00 K/mcL Normal 0.00-0.00 [facility] Comment on above: Performed By: #### L [id number] ####[facility] LAB [address] [place], [place] [address] Moody Martinez M.D. [id number] BASOPHILS ABSOLUTE COUNT 0.04 K/mcL Normal 0.00-0.30 [facility] Comment on above: Performed By: #### L [id number] #### LAB [address] [place], [place] [address] Moody Martinez M.D. [id number] Basophils/100 WBC (Bld) 0.5 % Normal [facility] Comment on above: Performed By: #### L [id number] #### LAB [address] [place] [address] Moody Martinez M.D. [id number] Eosinophils (Bld) [#/Vol] 0.00 10*3/uL Normal 0.00-0.5 0 [facility] Comment on above: Performed By: #### L [id number] #### LAB [address] [place] [address] Moody Martinez M.D. [id number] Eosinophils/100 WBC (Bld) 0.0 % Normal [facility] Comment on above: Performed By: #### L [id number] #### LAB [address] [place] [address] Moody Martinez M.D. [id number] Erythrocyte distribution width (RBC) [Ratio] 13.7 % Normal 11.6-14.8 [facility] Comment on above: Performed By: #### L [id number] #### LAB [address] [place] [address] Moody Martinez M.D. [id number] Hematocrit (Bld) [Volume fraction] 34.8 % Low 41.0-53.0 [facility] Comment on above: Performed By: #### L [id number] #### LAB [address] [place] [address] Moody Martinez M.D. [id number] Hemoglobin (Bld) [Mass/Vol] 11.2 g/dL Low 13.5-17.5 [facility] Comment on above: Performed By: #### L [id number] #### LAB [address] [place] [address] Moody Martinez M.D. [id number] IG ABSOLUTE 0.04 K/mcL Normal 0.00-0.30 [facility] Comment on above: Performed By: #### L [id number] #### LAB [address] [place] [address] Moody Martinez M.D. [id number] IG PERCENT 0.50 % Normal [facility] Comment on above: Result Comment: The IG parameter is the percentage of metamyelocytes, myelocytes and promyelocytes. An immature granulocyte count (IG) of 1% or more suggests the possibility of infection, an IG count of 3% is very likely related to an infection. Performed By: #### L [id number] #### LAB [address] [place] [address] Moody Martinez M.D. [id number] Lymphocytes (Bld) [#/Vol] 1.20 10*3/uL Normal 0.90-4.0 0 [facility] Comment on above: Performed By: #### L [id number] #### LAB [address] [place] [address] Moody Martinez M.D. [id number] Lymphocytes/100 WBC (Bld) 13.8 % Normal [facility] Comment on above: Performed By: #### L [id number] #### LAB [address] [place] [address] Moody Martinez M.D. [id number] MCH (RBC) [Entitic mass] 30.0 pg Normal 26.0-34.0 [facility] Comment on above: Performed By: #### L [id number] #### LAB [address] [place] [address] Moody Martinez M.D. [id number] MCV (RBC) [Entitic vol] 93.3 fL Normal 80.0-100.0 [facility] Comment on above: Performed By: #### L [id number] #### LAB [address] [place] [address] Moody Martinez M.D. [id number] MEAN CORPUSCULAR HEMOGLOBIN CONC 32.2 g/dL Normal 31.0-37.0 [facility] Comment on above: Performed By: #### L [id number] #### LAB [address] [place] [address] Moody Martinez M.D. [id number] Monocytes (Bld) [#/Vol] 0.11 10*3/uL Low 0.30-0.90 [facility] Comment on above: Performed By: #### L [id number] ####[facility] LAB [address] [place] [address] Moody Martinez M.D. [id number] Monocytes/100 WBC (Bld) 1.3 % Normal [facility] Comment on above: Performed By: #### L [id number] #### LAB [address] [place] [address] Moody Martinez M.D. [id number] NEUTROPHILS ABSOLUTE COUNT 7.32 K/mcL High 1.70-7.00 [facility] Comment on above: Performed By: #### L [id number] #### LAB [address] [place] [address] Moody Martinez M.D. [id number] Neutrophils/100 WBC (Bld) 83.9 % Normal [facility] Comment on above: Performed By: #### L [id number] #### LAB [address] [place] [address] Moody Martinez M.D. [id number] Platelet mean volume (Bld) [Entitic vol] 11.2 fL Normal 9.4-12.4 [facility] Comment on above: Performed By: #### L [id number] #### LAB [address] [place] [address] Moody Martinez M.D. [id number] Platelets (Bld) [#/Vol] 234 10*3/uL Normal 150-400 [facility] Comment on above: Performed By: #### L [id number] ####[facility] LAB [address] [place] [address] Moody Martinez M.D. [id number] RBC (Bld) [#/Vol] 3.73 10*6/uL Low 4.50-5.90 [facility] Comment on above: Performed By: #### L [id number] #### LAB [address] [place] [address] Moody Martinez M.D. [id number] WBC (Bld) [#/Vol] 8.71 10*3/uL Normal 4.50-11.00 [facility] Comment on above: Performed By: #### L [id number] #### LAB [address] [place] [address] Moody Martinez M.D. [id number] CITRATED TEG (CARDIAC) WITH HEPARINASE PANEL [facility] 10-27-2024 (CFF-FLEV) CITRATED FUNCTIONAL FIBRINOGEN -EST. FUNCTIONAL FIBRINOGEN LEVEL 381.4 mg/dL Normal 278.0-581.0 [facility] Comment on above: Performed By: #### L [id number] #### LAB [address] [place] [address] Moody Martinez M.D. [id number] (CFF-MA) CITRATED FUNCTIONAL FIBRINOGEN - [place] 20.9 mm Normal 15.0-32.0 [facility] Comment on above: Performed By: #### L [id number] #### LAB [address] [place] [address] Moody Martinez M.D. [id number] (CK-ANGLE) CITRATED KAOLIN-ALPHA ANGLE 73.2 deg Normal 63.0-78.0 [facility] Comment on above: Performed By: #### L [id number] #### LAB [address] [place] [address] Moody Martinez M.D. [id number] (CK-K) CITRATED KAOLIN-SPEED OF CLOT FORMATION 1.3 min Normal 0.8-2.1 [facility] Comment on above: Performed By: #### L [id number] #### LAB [address] [place] [address] Moody Martinez M.D. [id number] (CK-MA) CITRATED KAOLIN-MAXIMUM CLOT STRENGTH 50.9 mm Low 52.0-69.0 [facility] Comment on above: Performed By: #### L [id number] #### LAB [address] [place] [address] Moody Martinez M.D. [id number] (CK-R) CITRATED KAOLIN - REACTION TIME 16.4 min High 4.6-9.1 [facility] Comment on above: Performed By: #### L [id number] ####[facility] LAB [address] [place] [address] Moody Martinez M.D. [id number] (CKH-R) CITRATED KAOLIN WITH HEPARINASE-REACTION TIME 7.6 min Normal 4.3-8.3 [facility] Comment on above: Performed By: #### L [id number] ####[facility] LAB [address] [place] [address] Moody Martinez M.D. [id number] (PRACTICE OFFICE ASSOCIATE-[place]) CITRATED RAPID TEG - [place] 62.3 mm Normal 52.0-70.0 [facility] Comment on above: Performed By: #### L [id number] #### LAB [address] [place] [address] Moody Martinez M.D. [id number] COMPREHENSIVE METABOLIC PANE [facility] 10-27-2024 Albumin [Mass/Vol] 3.4 g/dL Normal 3.2-5.2 [facility] Comment on above: Order Comment: [facility] has implemented the eGFR calculation approach that does not have a coefficient for race that conforms to the NKF-ASN Task Force Recommendations. Performed By: #### 4 [id number] #### LAB [address] [place] [address] Moody Martinez M.D. [id number] ALP [Catalytic activity/Vol] 86 U/L Normal 40-150 [facility] Comment on above: Order Comment: [facility] has implemented the eGFR calculation approach that does not have a coefficient for race that conforms to the NKF-ASN Task Force Recommendations. Performed By: #### 4 6126 ####[facility] LAB [address] [place] [address] Moody Martinez M.D. [id number] ALT [Catalytic activity/Vol] 13 U/L Normal 0-50 U/L [facility] Comment on above: Order Comment: [facility] has implemented the eGFR calculation approach that does not have a coefficient for race that conforms to the NKF-ASN Task Force Recommendations. Performed By: #### 4 6126 #### LAB [address] [place] [address] Moody Martinez M.D. [id number] Anion gap [Moles/Vol] 20 mmol/L Normal 10-20 [facility] Comment on above: Order Comment: [facility] has implemented the eGFR calculation approach that does not have a coefficient for race that conforms to the NKF-ASN Task Force Recommendations. Performed By: #### 4 6126 #### LAB [address] [place] [address] Moody Martinez M.D. [id number] AST [Catalytic activity/Vol] 12 U/L Normal 0-50 U/L [facility] Comment on above: Order Comment: [facility] has implemented the eGFR calculation approach that does not have a coefficient for race that conforms to the NKF-ASN Task Force Recommendations. Performed By: #### 4 6126 #### LAB [address] [place] [address] Moody Martinez M.D. [id number] Bilirubin [Mass/Vol] 0.3 mg/dL Normal 0.0-1.3 [facility] Comment on above: Order Comment: [facility] has implemented the eGFR calculation approach that does not have a coefficient for race that conforms to the NKF-ASN Task Force Recommendations. Performed By: #### 4 6126 #### LAB [address] [place] [address] Moody Martinez M.D. [id number] Calcium [Mass/Vol] 8.4 mg/dL Normal 8.4-10.2 [facility] Comment on above: Order Comment: [facility] has implemented the eGFR calculation approach that does not have a coefficient for race that conforms to the NKF-ASN Task Force Recommendations. Performed By: #### 4 6126 #### LAB [address] [place] [address] Moody Martinez M.D. [id number] Chloride [Moles/Vol] 99 mmol/L Normal 98-108 [facility] Comment on above: Order Comment: [facility] has implemented the eGFR calculation approach that does not have a coefficient for race that conforms to the NKF-ASN Task Force Recommendations. Performed By: #### 4 6126 #### LAB [address] [place], [place] [address] Moody Martinez M.D. [id number] Creatinine [Mass/Vol] 2.55 mg/dL High 0.80-1.30 [facility] Comment on above: Order Comment: [facility] has implemented the eGFR calculation approach that does not have a coefficient for race that conforms to the NKF-ASN Task Force Recommendations. Performed By: #### 4 6126 #### LAB [address] [place] [id number] Moody Martinez M.D. [id number] EGFR 25 mL/min/1.73 m2 Low >=60 [facility] Comment on above: Order Comment: [facility] has implemented the eGFR calculation approach that does not have a coefficient for race that conforms to the NKF-ASN Task Force Recommendations. Result Comment: Albin mated GFR was calculated using the 2020 CKD-EPI creatinine equation. Performed By: #### 4 6126 #### LAB [address] [place], [place] [address] Moody Martinez M.D. [id number] Glucose [Mass/Vol] 564 mg/dL Off scale high 65-99 [facility] Comment on above: Order Comment: [facility] has implemented the eGFR calculation approach that does not have a coefficient for race that conforms to the NKF-ASN Task Force Recommendations. Performed By: #### 4 6126 #### LAB [address] [place] [id number] Moody Martinez M.D. [id number] HCO3 (Bld) [Moles/Vol] 15 mmol/L Low 21-32 [facility] Comment on above: Order Comment: [facility] has implemented the eGFR calculation approach that does not have a coefficient for race that conforms to the NKF-ASN Task Force Recommendations. Performed By: #### 4 6126 #### LAB [address] [place] [id number] Moody Martinez M.D. [id number] Potassium [Moles/Vol] 5.9 mmol/L High 3.5-5.1 [facility] Comment on above: Order Comment: [facility] has implemented the eGFR calculation approach that does not have a coefficient for race that conforms to the NKF-ASN Task Force Recommendations. Performed By: #### 4 6126 #### LAB [address] [place] [address] Moody Martinez M.D. [id number] Protein [Mass/Vol] 5.8 g/dL Low 6.0-8.0 [facility] Comment on above: Order Comment: [facility] has implemented the eGFR calculation approach that does not have a coefficient for race that conforms to the NKF-ASN Task Force Recommendations. Performed By: #### 4 6126 #### LAB [address] [place] [address] Moody Martinez M.D. [id number] Sodium [Moles/Vol] 128 mmol/L Low 135-145 [facility] Comment on above: Order Comment: [facility] has implemented the eGFR calculation approach that does not have a coefficient for race that conforms to the NKF-ASN Task Force Recommendations. Performed By: #### 4 6126 #### LAB [address] [place] [address] Moody Martinez M.D. [id number] Urea nitrogen [Mass/Vol] 93 mg/dL High 8-25 [facility] Comment on above: Order Comment: [facility] has implemented the eGFR calculation approach that does not have a coefficient for race that conforms to the NKF-ASN Task Force Recommendations. Performed By: #### 4 6126 #### LAB [address] [place] [address] Moody Martinez M.D. [id number] Urea nitrogen/Creatinine [Mass ratio] 36.5 mg/mg High 10.0-20.0 [facility] Comment on above: Order Comment: [facility] has implemented the eGFR calculation approach that does not have a coefficient for race that conforms to the NKF-ASN Task Force Recommendations. Performed By: #### 4 6126 #### LAB [address] [place] [address] Moody Martinez M.D. [id number] Albumin [Mass/Vol] 3.5 g/dL Normal 3.2-5.2 [facility] Comment on above: Order Comment: [facility] has implemented the eGFR calculation approach that does not have a coefficient for race that conforms to the NKF-ASN Task Force Recommendations. Performed By: #### 4 6126 #### LAB [address] [place] [address] Moody Martinez M.D. [id number] ALP [Catalytic activity/Vol] 92 U/L Normal 40-150 [facility] Comment on above: Order Comment: [facility] has implemented the eGFR calculation approach that does not have a coefficient for race that conforms to the NKF-ASN Task Force Recommendations. Performed By: #### 4 6126 #### LAB [address] [place] [address] Moody Martinez M.D. [id number] ALT [Catalytic activity/Vol] 21 U/L Normal 0-50 U/L [facility] Comment on above: Order Comment: [facility] has implemented the eGFR calculation approach that does not have a coefficient for race that conforms to the NKF-ASN Task Force Recommendations. Performed By: #### 4 6126 #### LAB [address] [place] [address] Moody Martinez M.D. [id number] Anion gap [Moles/Vol] 20 mmol/L Normal 10-20 [facility] Comment on above: Order Comment: [facility] has implemented the eGFR calculation approach that does not have a coefficient for race that conforms to the NKF-ASN Task Force Recommendations. Performed By: #### 4 6126 #### LAB [address] [place] [id number] Moody Martinez M.D. [id number] AST [Catalytic activity/Vol] 14 U/L Normal 0-50 U/L [facility] Comment on above: Order Comment: [facility] has implemented the eGFR calculation approach that does not have a coefficient for race that conforms to the NKF-ASN Task Force Recommendations. Performed By: #### 4 6126 #### LAB [address] [place] [address] Moody Martinez M.D. [id number] Bilirubin [Mass/Vol] 0.3 mg/dL Normal 0.0-1.3 [facility] Comment on above: Order Comment: [facility] has implemented the eGFR calculation approach that does not have a coefficient for race that conforms to the NKF-ASN Task Force Recommendations. Performed By: #### 4 6126 #### LAB [address] [place] [address] Moody Martinez M.D. [id number] Calcium [Mass/Vol] 8.7 mg/dL Normal 8.4-10.2 [facility] Comment on above: Order Comment: [facility] has implemented the eGFR calculation approach that does not have a coefficient for race that conforms to the NKF-ASN Task Force Recommendations. Performed By: #### 4 6126 #### LAB [address] [place] [address] Moody Martinez M.D. [id number] Chloride [Moles/Vol] 99 mmol/L Normal 98-108 [facility] Comment on above: Order Comment: [facility] has implemented the eGFR calculation approach that does not have a coefficient for race that conforms to the NKF-ASN Task Force Recommendations. Performed By: #### 4 6126 #### LAB [address] [place] [address] Moody Martinez M.D. [id number] Creatinine [Mass/Vol] 2.60 mg/dL High 0.80-1.30 [facility] Comment on above: Order Comment: [facility] has implemented the eGFR calculation approach that does not have a coefficient for race that conforms to the NKF-ASN Task Force Recommendations. Performed By: #### 4 [id number] #### LAB [address] [place] [address] Moody Martinez M.D. [id number] EGFR 24 mL/min/1.73 m2 Low >=60 [facility] Comment on above: Order Comment: [facility] has implemented the eGFR calculation approach that does not have a coefficient for race that conforms to the NKF-ASN Task Force Recommendations. Result Comment: Albin mated GFR was calculated using the 2020 CKD-EPI creatinine equation. Performed By: #### 4 6126 #### LAB [address] [place] [address] Moody Martinez M.D. [id number] Glucose [Mass/Vol] 467 mg/dL Off scale high 65-99 [facility] Comment on above: Order Comment: [facility] has implemented the eGFR calculation approach that does not have a coefficient for race that conforms to the NKF-ASN Task Force Recommendations. Performed By: #### 4 6126 #### LAB [address] [place] [address] Moody Martinez M.D. [id number] HCO3 (Bld) [Moles/Vol] 17 mmol/L Low 21-32 [facility] Comment on above: Order Comment: [facility] has implemented the eGFR calculation approach that does not have a coefficient for race that conforms to the NKF-ASN Task Force Recommendations. Performed By: #### 4 6126 #### LAB [address] [place] [address] Moody Martinez M.D. [id number] Potassium [Moles/Vol] 6.3 mmol/L Off scale high 3.5-5.1 [facility] Comment on above: Order Comment: [facility] has implemented the eGFR calculation approach that does not have a coefficient for race that conforms to the NKF-ASN Task Force Recommendations. Performed By: #### 4 6126 #### LAB [address] [place] [address] Moody Martinez M.D. [id number] Protein [Mass/Vol] 5.6 g/dL Low 6.0-8.0 [facility] Comment on above: Order Comment: [facility] has implemented the eGFR calculation approach that does not have a coefficient for race that conforms to the NKF-ASN Task Force Recommendations. Performed By: #### 4 6126 #### LAB [address] [place] [address] Moody Martinez M.D. [id number] Sodium [Moles/Vol] 130 mmol/L Low 135-145 [facility] Comment on above: Order Comment: [facility] has implemented the eGFR calculation approach that does not have a coefficient for race that conforms to the NKF-ASN Task Force Recommendations. Performed By: #### 4 6126 #### LAB [address] [place] [address] Moody Martinez M.D. [id number] Urea nitrogen [Mass/Vol] 92 mg/dL High 8-25 [facility] Comment on above: Order Comment: [facility] has implemented the eGFR calculation approach that does not have a coefficient for race that conforms to the NKF-ASN Task Force Recommendations. Performed By: #### 4 6126 #### LAB [address] [place], [place] [address] Moody Martinez M.D. [id number] Urea nitrogen/Creatinine [Mass ratio] 35.4 mg/mg High 10.0-20.0 [facility] Comment on above: Order Comment: [facility] has implemented the eGFR calculation approach that does not have a coefficient for race that conforms to the NKF-ASN Task Force Recommendations. Performed By: #### 4 6126 #### LAB [address] [place] [id number] Moody Martinez M.D. [id number] CORONARY ANGIOGRAPHYon 10-27 CORONARY ANGIOGRAPHY This is [...] significant gradient across the aortic valve. Normal [facility] CT CHEST WITHOUT CONTRASTon 10-27-2024 CT CHEST [...] the subcutaneous tissues of the chest wall. Neuravi/[employer] Workstation ID: [id number] Dictated by: KAHLIL VARGHESE on WedOct 27, 2024 1:25:27 PM EST Transcribed by: WARREN PRITCHARD on WedOct 27, 2024 1:31:49 PM EST Finalized by: KAHLIL VARGHESE on WedOct 27, 2024 3:01:00 PM EST Normal [facility] Comment on above: Order Comment: Injur [...] the chest wall. JAR/pji Workstation ID: [id number] SceneChat EXAMINATION: CT CHEST WITHOUT CONTRAST HISTORY: ORDERING [...] STRUCTURES: No aggressive bone lesions. Intact sternum. [facility] Kahlil Varghese, DO - 10/27/2024 EXAMINATION: CT CHEST WITHOUT [...] the subcutaneous tissues of the chest wall. Neuravi/Keek Workstation ID: [id number] [facility] Radiology Study observation (narrative) [facility] Cardiac Catheterizationon Impression: Multivessel complex calcified obstructive [...] no significant gradient across the aortic valve. FUJI SYNAPSE CV [facility] Citrated TEG (Cardiac) with HeparinaseOrdered By: Burton Zendejas on 10-27-2024 (CFF-FLEV) Cit. Func.Fib.Estimated Func.Fibrinogen Level 381.4 mg/dL 278.0 - 581.0 mg/dL [facility] Clot angle TEG (Bld) [Angle] 73.2 deg 63.0 - 78.0 deg [facility] Clot formation TEG (Bld) [Time] 1.3 min 0.8 - 2.1 min [facility] Clotting time after addition of heparinase TEG (Bld) 7.6 min 4.3 - 8.3 min [facility] Clotting time.intrinsic coagulation system activated Rotational TEG (Bld) 16.4 min High 4.6 - 9.1 min [facility] Interpretation and review of laboratory results Abnormal [facility] Maximum clot firmness TEG (Bld) [Length] 50.9 mm Low 52.0 - 69.0 mm [facility] Maximum clot firmness TEG (Bld) [Length] 20.9 mm 15.0 - 32.0 mm [facility] Maximum clot firmness.extrinsic coagulation system activated Rotational TEG (Bld) [Length] 62.3 mm 52.0 - 70.0 mm [facility] Comprehensive metabolic 2000 panelOrdered By: Ya Izaguirre on 10-27-2024 Albumin [Mass/Vol] 3.4 g/dL 3.2 - 5.2 g/dL [facility] ALP [Catalytic activity/Vol] 86 U/L 40 - 150 U/L [facility] ALT [Catalytic activity/Vol] 13 U/L 0-50 U/L [facility] Anion gap [Moles/Vol] 20 mmol/L 10 - 2 0 mmol/L [facility] AST [Catalytic activity/Vol] 12 U/L 0-50 U/L [facility] Bilirubin [Mass/Vol] 0.3 mg/dL 0.0 - 1 .3 mg/dL [facility] Calcium [Mass/Vol] 8.4 mg/dL 8.4 - 10. 2 mg/dL [facility] Chloride [Moles/Vol] 99 mmol/L 98 - 10 8 mmol/L [facility] Creatinine [Mass/Vol] 2.55 mg/dL High 0.80 - 1.30 mg/dL [facility] GFR/1.73 sq M.predicted CKD-EPI (S/P/Bld) [Vol rate/Area] 25 Low - PINF [facility] Comment on above: Estimated GFR was ca lculated using the 2020 CKD-EPI creatinine equation. Glucose [Mass/Vol] 564 mg/dL Critically high 65 - 99 mg/d L [facility] HCO3 [Moles/Vol] 15 mmol/L Low 21 - 32 mmol/L [facility] Potassium [Moles/Vol] 5.9 mmol/L High 3.5 - 5.1 mmol/L [facility] Protein [Mass/Vol] 5.8 g/dL Low 6.0 - 8.0 g/dL [facility] Sodium [Moles/Vol] 128 mmol/L Low 135 - 145 mmol/L [facility] Urea nitrogen [Mass/Vol] 93 mg/dL High 8 - 25 mg/d L [facility] Urea nitrogen/Creatinine [Mass ratio] 36.5 mg/mg High 10.0 - 20.0 [facility] has implemented the eGFR calculation approach that does not have a coefficient for race that conforms to the NKF-ASN Task Force Recommendations. [facility] Comprehensive metabolic 2000 panelOrdered By: Rosalia March on 10-27-2024 Albumin [Mass/Vol] 3.5 g/dL 3.2 - 5.2 g/dL [facility] ALP [Catalytic activity/Vol] 92 U/L 40 - 150 U/L [facility] ALT [Catalytic activity/Vol] 21 U/L 0-50 U/L [facility] Anion gap [Moles/Vol] 20 mmol/L 10 - 2 0 mmol/L [facility] AST [Catalytic activity/Vol] 14 U/L 0-50 U/L [facility] Bilirubin [Mass/Vol] 0.3 mg/dL 0.0 - 1 .3 mg/dL [facility] Calcium [Mass/Vol] 8.7 mg/dL 8.4 - 10. 2 mg/dL [facility] Chloride [Moles/Vol] 99 mmol/L 98 - 10 8 mmol/L [facility] Creatinine [Mass/Vol] 2.6 mg/dL High 0.80 - 1.30 mg/dL [facility] GFR/1.73 sq M.predicted CKD-EPI (S/P/Bld) [Vol rate/Area] 24 Low - PINF [facility] Comment on above: Estimated GFR was ca lculated using the 2020 CKD-EPI creatinine equation. Glucose [Mass/Vol] 467 mg/dL Critically high 65 - 99 mg/d L [facility] HCO3 [Moles/Vol] 17 mmol/L Low 21 - 32 mmol/L [facility] Interpretation and review of laboratory results Abnormal [facility] Potassium [Moles/Vol] 6.3 mmol/L Critically high 3.5 - 5.1 mmol/L [facility] Protein [Mass/Vol] 5.6 g/dL Low 6.0 - 8.0 g/dL [facility] Sodium [Moles/Vol] 130 mmol/L Low 135 - 145 mmol/L [facility] Urea nitrogen [Mass/Vol] 92 mg/dL High 8 - 25 mg/d L [facility] Urea nitrogen/Creatinine [Mass ratio] 35.4 mg/mg High 10.0 - 20.0 [facility] has implemented the eGFR calculation approach that does not have a coefficient for race that conforms to the NKF-ASN Task Force Recommendations. [facility] ECHOCARDIOGRAM COMPLETEon ECHOCARDIOGRAM COMPLETE Patient Info Name: ENOC ARMANDO Age: 78 years : 1945 Gender: Male Ht: 170 cm Wt: 66 kg BSA: 1.77 m2 HR: 63 bpm BP: 148 / 55 mmHg Heart Rhythm: Sinus Arrhythmia Technical Quality: Fair Exam Date: 10/27/2024 1:22 PM Patient Status: Outpatient Music Writer: Jyoti Perez RDCS Exam Type: ECHOCARDIOGRAM COMPLETE Study Info Indications - Abnormal electrocardiogram [ECG] [EKG] Referring Physician: MARIE Arriaga; [id number] BMI: 22.71 kg/m2 Summary 1. Normal LV [...] Factors Hypertension: Yes Dyslipidemia: Yes Myocardial Infarction (AK): No Congestive Heart Failure (CHF): Hx CHF [...] Scoring Index: 1.00 Left Ventricular Outflow Tract Name Value Normal LVOT 2D LVOT Diameter 2.0 cm LVOT Doppler LVOT Peak Velocity 1.3 m/s LVOT Peak Gradient 8 mmHg LVOT Mean Gradient 4 mmHg LVOT VTI 31 cm LVOT VTI/AV VTI Ratio 1.0 LVOT Stroke Volume 97 ml LVOT Stroke Index 55.05 ml/m2 Pulmonic Valve Name Value Normal RVOT Doppler RVOT Peak Velocity 138 cm/s RVOT Peak Gradient 8 mmHg RVOT Mean Gradient 4 mmHg RVOT VTI 31 cm PV Doppler PV Peak Velocity 1.32 m/s PV Peak Gradient 7 mmHg PV Mean Gradient 4 mmHg PV VTI 28 cm Mitral Valve Name Value Normal MV Doppler MV Peak Velocity 1.46 m/s MV Peak Gradient 14 mmHg MV Mean Gradient 5 mmHg MV VTI 56 cm MV Decel Colbert 850 cm/s2 MV PHT 90 ms MV Area (PHT) 2.4 cm2 4.0-5.0 MV Area (Cont Eq VTI) 1.7 cm2 MV Area Index (Cont Eq VTI) 0.99 cm2/m2 MV DVI 1.80 MV Diastolic Function MV E Peak Velocity 0.91 m/s MV A Peak Velocity 1.24 m/s MV E/A 0.7 MV Decel Time 312 ms MV Annular TDI MV Septal e' Velocity 6.3 cm/s >=8.0 MV E/e' (Septal) 14.3 <=8.0 MV Lateral e' Velocity 8.4 cm/s >=9.5 MV E/e' (Lateral) 10.8 <=8.0 MV e' Average 7. (more content not included)... Normal [facility] Echo completeOrdered By: Fauzia Garay on 10-27-2024 Aortic valve area 3.87855 cm [facility] Work Phone: [phone] AV mean gradient 4 mmHg [facility] Work Phone: [phone] AV peak gradient 7.1824 mmHg [facility] Work Phone: [phone] EF 70.2889 % [facility] Work Phone: [phone] [facility] Work Phone: [phone] Echo completeon 10-27-2024 Patient Info Name: ENOC ARMANDO Age: 78 years : 1945 Gender: Male Ht: 170 cm Wt: 66 kg BSA: 1.77 m2 HR: 63 bpm BP: 148 / 55 mmHg Heart Rhythm: Sinus Arrhythmia Technical Quality: Fair Exam Date: 10/27/2024 1:22 PM Patient Status: Outpatient Music Writer: Jyoti Perez RDCS Exam Type: ECHOCARDIOGRAM COMPLETE Study Info Indications - Abnormal electrocardiogram [ECG] [EKG] Referring Physician: MARIE Arriaga; [id number] BMI: 22.71 kg/m2 Summary 1. Normal LV [...] Factors Hypertension: Yes Dyslipidemia: Yes Myocardial Infarction (AK): No Congestive Heart Failure (CHF): Hx CHF [...] Scoring Index: 1.00 Left Ventricular Outflow Tract Name Value Normal LVOT 2D LVOT Diameter 2.0 cm LVOT Doppler LVOT Peak Velocity 1.3 m/s LVOT Peak Gradient 8 mmHg LVOT Mean Gradient 4 mmHg LVOT VTI 31 cm LVOT VTI/AV VTI Ratio 1.0 LVOT Stroke Volume 97 ml LVOT Stroke Index 55.05 ml/m2 Pulmonic Valve Name Value Normal RVOT Doppler RVOT Peak Velocity 138 cm/s RVOT Peak Gradient 8 mmHg RVOT Mean Gradient 4 mmHg RVOT VTI 31 cm PV Doppler PV Peak Velocity 1.32 m/s PV Peak Gradient 7 mmHg PV Mean Gradient 4 mmHg PV VTI 28 cm Mitral Valve Name Value Normal (more content not included)... FUJI Diogenes Moreira MD - 10/27/2024 Patient Info Name: ENOC ARMANDO Age: 78 years : 1945 Gender: Male Ht: 170 cm Wt: 66 kg BSA: 1.77 m2 HR: 63 bpm BP: 148 / 55 mmHg Heart Rhythm: Sinus Arrhythmia Technical Quality: Fair Exam Date: 10/27/2024 1:22 PM Patient Status: Outpatient Music Writer: Jyoti Perez RDCS Exam Type: ECHOCARDIOGRAM COMPLETE Study Info Indications - Abnormal electrocardiogram [ECG] [EKG] Referring Physician: MARIE Arriaga; [id number] BMI: 22.71 kg/m2 Summary 1. Normal LV [...] Factors Hypertension: Yes Dyslipidemia: Yes Myocardial Infarction (AK): No Congestive Heart Failure (CHF): Hx CHF [...] Scoring Index: 1.00 Left Ventricular Outflow Tract Name Value Normal LVOT 2D LVOT Diameter 2.0 cm LVOT Doppler LVOT Peak Velocity 1.3 m/s LVOT Peak Gradient 8 mmHg LVOT Mean Gradient 4 mmHg LVOT VTI 31 cm LVOT VTI/AV VTI Ratio 1.0 LVOT Stroke Volume 97 ml LVOT Stroke Index 55.05 ml/m2 Pulmonic Valve Name Value Normal RVOT Doppler RVOT Peak Velocity 138 cm/s RVOT Peak Gradient 8 mmHg RVOT Mean Gradient 4 mmHg RVOT VTI 31 cm PV Doppler PV Peak Velocity 1.32 m/s PV Peak Gradient 7 mmHg PV Mean Gradient 4 mmHg PV VTI 28 cm Mitral Valve Name Value Normal MV Doppler MV Peak Velocity 1.46 m/s MV Peak Gradient 14 mmHg MV Mean Gradient 5 mmHg MV VTI 56 cm MV Decel Colbert 850 cm/s2 MV PHT 90 ms MV Area (PHT) 2.4 cm2 4.0-5.0 MV Area (Cont Eq VTI) 1.7 cm2 MV Area Index (Cont Eq VTI) 0.99 cm2/m2 MV DVI 1.80 MV Diastolic Function MV E Peak Velocity 0.91 m/s MV A Peak Velocity 1.24 m/s MV E/A 0.7 MV Decel Time 312 ms MV Annular TDI MV Septal e' Velocity 6.3 cm/ (more content not included)... [facility] Glucose (Bld) [Mass/Vol]on 12-28-2023 Glucose [Mass/Vol] mg/dL Critically high 65 - 99 mg/d L [facility] Interpretation and review of laboratory results Abnormal [facility] Critical result acted upon time of test. Test performed at bedside. [facility] Glucose [Mass/Vol] mg/dL Critically high 65 - 99 mg/d L [facility] Interpretation and review of laboratory results Abnormal [facility] Critical result acted upon time of test. Test performed at bedside. [facility] Glucose [Mass/Vol] 369 mg/dL High 65 - 99 mg/dL [facility] Interpretation and review of laboratory results Abnormal [facility] Glucose [Mass/Vol] 381 mg/dL High 65 - 99 mg/dL [facility] Interpretation and review of laboratory results Abnormal [facility] Glucose [Mass/Vol] 385 mg/dL High 65 - 99 mg/dL [facility] Interpretation and review of laboratory results Abnormal [facility] Glucose [Mass/Vol] 498 mg/dL Critically high 65 - 99 mg/d [facility] Interpretation and review of laboratory results Abnormal [facility] Critical result acted upon time of test. Test performed at bedside. [facility] Glucose [Mass/Vol] 279 mg/dL High 65 - 99 mg/dL [facility] Interpretation and review of laboratory results Abnormal [facility] HEMOGLOBIN A1Con 10-27-2024 Glucose [Mass/Vol] 237 mg/dL High [address] [place] [address] Comment on above: Performed By: #### 4 [id number] ####[facility] [address] [place] [address] Moody Martinez M.D. [id number] HbA1c (Bld) [Mass fraction] 9.9 % [facility] [address] Comment on above: Performed By: #### 4 8202 ####[facility] [address] [place], [place] [address] Moody Martinez M.D. [id number] Glucose [Mass/Vol] 232 mg/dL [address] Comment on above: Performed By: #### 4 8202 ####[facility] [address] [place], [place] [address] Moody Martinez M.D. [id number] HbA1c (Bld) [Mass fraction] 9.7 % [facility] Comment on above: Performed By: #### 4 8202 ####[facility] [address] [place], [place] [address] Moody Martinez M.D. [id number] HbA1c (Bld) [Mass fraction]o n 10-27-2024 Average glucose Estimated from glycated hemoglobin (Bld) [Mass/Vol] 232 mg/dL High 74 - 114 mg/dL [facility] Interpretation and review of laboratory results Abnormal [facility] Hemoglobin A1con 10-27-2024 HbA1c (Bld) [Mass fraction] 9.7 % High 4.2 - 5.6 % [facility] INR Coag (PPP) [Relative concha e]on 10-27-2024 Interpretation and review of laboratory results Normal [facility] PT Coag (PPP) [Time] 14.3 s [facility] During the induction phase of oral anticoagulation, the INR may not reflect the anticoagulation status of the patient. Therapeutic ranges for INR's are: Most clinical situations: INR 2.0-3.0 Mechanical Prosthetic Valve: INR 2.5-3.5 Critical: INR >5.0 [facility] LACTIC ACID, PLASMAon 2023 LACTIC ACID, PLASMA 1.6 mmol/L Normal 0.6-2.0 [facility] Comment on above: Performed By: #### 4 6932 #### LAB [address] [place] [address] Moody Martinez M.D. [id number] LIPASEon 10-27-2024 Lipase [Catalytic activity/Vol] 56 U/L Normal 15-65 [facility] Comment on above: Performed By: #### 4 6086 ####[facility] [address] [place] [address] Moody Martinez M.D. [id number] Lactate [Moles/Vol]on 2023 Interpretation and review of laboratory results Normal [facility] Lactic Acid, Plasmaon 2023 Lactate [Moles/Vol] 1.6 mmol/L 0.6 - 2. 0 mmol/L [facility] Lipaseon 10-27-2024 Lipase [Catalytic activity/Vol] 56 U/L 15 - 65 U/L [facility] MAGNESIUM LEVELon 10-27-2024 Magnesium [Mass/Vol] 2.6 mg/dL High 1.6-2.4 [facility] Comment on above: Performed By: #### 4 6109 #### LAB [address] [place] [address] Moody Martinez M.D. [id number] Magnesium [Mass/Vol] 2.5 mg/dL High 1.6-2.4 [facility] Comment on above: Performed By: #### 4 6109 ####[facility] [address] [place] [address] Moody Martinez M.D. [id number] Magnesium Levelon 10-27-2024 Magnesium [Mass/Vol] 2.5 mg/dL High 1.6 - 2 .4 mg/dL [facility] No Panel InformationOrdered By: Ya Izaguirre on 10-27-2024 Interpretation and review of laboratory results Abnormal [facility] No Panel Informationon 10-27 Interpretation and review of laboratory results Normal [facility] PHOSPHORUSon 10-27-2024 Phosphate [Mass/Vol] 4.4 mg/dL High 2.3-3.7 [facility] Comment on above: Performed By: #### 4 6299 ####[facility] [address] [place] [address] Moody Martinez M.D. [id number] Phosphate [Mass/Vol] 5.2 mg/dL High 2.3-3.7 [facility] Comment on above: Performed By: #### 4 4014 #### [facility] [address] [place] [address] Moody Martinez M.D. [id number] POC ARTERIAL BLOOD GAS PANEL -[facility] 10-27-2024 [id number] 19.6 mm Hg [facility] Comment on above: Performed By: #### 4 8716 ####[facility] [address] [place] [address] Moody Martinez M.D. [id number] BASE EXCESS, ARTERIAL -7.5 Low -2.0-2.0 [facility] Comment on above: Performed By: #### 4 [id number] ####[facility] [address] [place] [address] Moody Martinez M.D. [id number] FIO2 21 [facility] Comment on above: Performed By: #### 4 8716 ####[facility] [address] [place] [address] Moody Martinez M.D. [id number] HCO3 (Bld) [Moles/Vol] 17.5 mmol/L Low 22.0-26.0 [facility] Comment on above: Performed By: #### 4 [id number] #### LAB [address] [place] [address] Moody Martinez M.D. [id number] Hematocrit (Bld) [Volume fraction] 30.0 % Low 41.0-53.0 [facility] Comment on above: Performed By: #### 4 [id number] ####[facility] [address] [place] [address] Moody Martinez M.D. [id number] Hemoglobin (Bld) [Mass/Vol] 9.8 g/dL Low 13.5-17.5 [facility] Comment on above: Performed By: #### 4 [id number] ####[facility] [address] [place] [address] Moody Martinez M.D. [id number] Oxygen saturation in Blood 97.3 % Normal 92.0-99.0 [facility] Comment on above: Performed By: #### 4 [id number] ####[facility] [address] [place] [address] Moody Martinez M.D. [id number] PCO2 ARTERIAL 32.9 mm Hg Low 35.0-45.0 [facility] Comment on above: Performed By: #### 4 [id number] #### LAB [address] [place] [address] Moody Martinez M.D. [id number] PH ARTERIAL 7.33 Low 7.35-7.45 [facility] Comment on above: Performed By: #### 4 [id number] ####[facility] [address] [place] [address] Moody Martinez M.D. [id number] PO2 ARTERIAL 85 mm Hg Normal 75-85 [facility] Comment on above: Performed By: #### 4 [id number] ####[facility] [address] [place] [address] Moody Martinez M.D. [id number] SPECIMEN SOURCE RADIANCE Radial, left Normal [facility] Comment on above: Performed By: #### 4 [id number] #### LAB [address] [place] [address] Moody Martinez M.D. [id number] POC Arterial Blood Gas Panel -[facility] 10-27-2024 Alveolar-arterial oxygen Partial pressure difference 19.6 mm Hg [facility] Base excess Calc (Bld) [Moles/Vol] -7.5000 mmol/L Low -2.0 - 2.0 [facility] CO2 (Bld) [Partial pressure] 32.9 mm[Hg] Low [facility] Hematocrit (BldA) [Volume fraction] 30 % Low 41.0 - 53.0 % [facility] Inhaled oxygen concentration 21 % [facility] Interpretation and review of laboratory results Abnormal [facility] Oxygen (Bld) [Partial pressure] 85 mm[Hg] [facility] pH (Bld) 7.33 [pH] Low 7.35 - 7.45 [facility] Specimen source Nom (Unsp spec) Radial, left [facility] POC GLUCOSE - [facility] 024 Glucose [Mass/Vol] 443 mg/dL Off scale high [address] [place] [address] Comment on above: Order Comment: Criti christian result acted upon time of test. Test performed at bedside. Performed By: #### 4 6932 ####[facility] [address] [place] [address] Moody Martinez M.D. [id number] POC GLUCOSE > Off scale [address] Comment on above: Order Comment: Criti christian result acted upon time of test. Test performed at bedside. Performed By: #### 4 6932 ####[facility] [address] [place] [address] Moody Martinez M.D. [id number] POC GLUCOSE > Off scale [address] Comment on above: Order Comment: Criti christian result acted upon time of test. Test performed at bedside. Performed By: #### 4 [id number] ####[facility] [address] [place] [address] Moody Martinez M.D. [id number] POC GLUCOSE > Off scale [address] Comment on above: Order Comment: Criti christian result acted upon time of test. Test performed at bedside. Performed By: #### 4 [id number] #### LAB [address] [place] [address] Moody Martinez M.D. [id number] Glucose [Mass/Vol] 369 mg/dL [address] Comment on above: Performed By: #### 4 6932 #### LAB [address] [place] [address] Moody Martinez M.D. [id number] Glucose [Mass/Vol] 381 mg/dL [address] Comment on above: Performed By: #### 4 [id number] #### LAB [address] [place] [address] Moody Martinez M.D. [id number] Glucose [Mass/Vol] 385 mg/dL [address] Comment on above: Performed By: #### 4 6932 #### LAB [address] [place] [address] Moody Martinez M.D. [id number] Glucose [Mass/Vol] 498 mg/dL Off scale [address] Comment on above: Order Comment: Criti christian result acted upon time of test. Test performed at bedside. Performed By: #### 4 6932 #### LAB [address] [address] Moody Martinez M.D. [id number] Glucose [Mass/Vol] 279 mg/dL [address] Comment on above: Performed By: #### L [id number] #### [facility] [address] [address] Moody Martinez M.D. [id number] POTASSIUM LEVELon 10-27-2024 Potassium [Moles/Vol] 3.4 mmol/L Low 3.5-5.1 [facility] Comment on above: Performed By: #### 4 6351 #### LAB [address] [address] Moody Martinez M.D. [id number] PREALBUMINon 10-27-2024 Prealbumin [Mass/Vol] 15.9 mg/dL Low 20.0-40.0 [facility] Comment on above: Performed By: #### 4 4014 #### LAB [address] [place], [place] [address] Moody Martinez M.D. [id number] PT/INRon 10-27-2024 INR Coag (PPP) [Relative time] 1.1 {INR} 0.8 - 1.1 [facility] INR Coag (PPP) [Relative time] 1.1 {INR} Normal 0.8-1.1 [facility] Comment on above: Order Comment: Janet good the induction phase of oral anticoagulation, the INR may not reflect the anticoagulation status of the patient. Therapeutic ranges for INR's are:Most clinical situations: INR 2.0-3.0Mechanical Prosthetic Valve: INR 2.5-3.5Critical: INR >5.0 Performed By: #### 4 6932 #### LAB [address] [place], [place] [address] Moody Martinez M.D. [id number] PT Coag (PPP) [Time] 14.3 s Normal 11.8-14.3 [facility] Comment on above: Order Comment: Janet good the induction phase of oral anticoagulation, the INR may not reflect the anticoagulation status of the patient. Therapeutic ranges for INR's are:Most clinical situations: INR 2.0-3.0Mechanical Prosthetic Valve: INR 2.5-3.5Critical: INR >5.0 Performed By: #### 4 6932 #### LAB [address] [place], [place] [address] Moody Martinez M.D. [id number] Phosphoruson 10-27-2024 Phosphate [Mass/Vol] 5.2 mg/dL High 2.3 - 3 .7 mg/dL [facility] Potassium Levelon 10-27-2024 Potassium [Moles/Vol] 3.4 mmol/L Low 3.5 - 5.1 mmol/L [facility] Potassium [Moles/Vol]on 10-02 Interpretation and review of laboratory results Abnormal [facility] Prealbuminon 10-27-2024 Prealbumin [Mass/Vol] 15.9 mg/dL Low 20.0 - 40.0 mg/dL [facility] Prealbumin [Mass/Vol]on 10-02 Interpretation and review of laboratory results Abnormal [facility] Segmental Doppler Lower Extr emity Arterialon 10-27-2024 Patient Info Name: ENOC ARMANDO Age: 78 years : 1945 Gender: Male Exam Date: 10/27/2024 9:50 AM Patient Status: Outpatient Soft Tile Setter: Ya Jacob Referring Physician: ZOILA POLLARD; Indications I73.9 - Peripheral vascular disease, unspecified Procedure Description 28714 Limited bilateral noninvasive physiologic studies of upper [...] pressures, Doppler waveforms and PVR waveforms suggest iliofemoral/femoral- popliteal stenotic or occlusive disease with moderately blunted [...] JO-ANN Nguyen DO on 10/27/2024 01:14 PM [facility] Flo Abdi III, DO - 10/27/2024 Patient Info Name: ENOC ARMANDO Age: 78 years : 1945 Gender: Male Exam Date: 10/27/2024 9:50 AM Patient Status: Outpatient Soft Tile Setter: Ya Jacob Referring Physician: ZOILA POLLARD; Indications I73.9 - Peripheral vascular disease, unspecified Procedure Description 49785 Limited bilateral noninvasive physiologic studies of upper [...] pressures, Doppler waveforms and PVR waveforms suggest iliofemoral/femoral- popliteal stenotic or occlusive disease with moderately blunted [...] JO-ANN Nguyen DO on 10/27/2024 01:14 PM [facility] T4, [facility] 10-27-2024 Free T4 [Mass/Vol] 1.3 ng/dL Normal 0.7-1.7 [facility] Comment on above: Performed By: #### 4 6567 ####[facility] LAB [address] [place], [place] [address] Moody Martinez M.D. [id number] [facility] T4 [Mass/Vol] 1.3 ng/dL 0.7 - 1.7 ng/dL [facility] TEG PLATELET MAPPING [facility]on 10-27-2024 (AA-%AGGREGATION) AA PERCENT AGGREGATION 12.1 % Low 89.0-100.0 [facility] Comment on above: Performed By: #### L [id number] ####[facility] LAB [address] [place], [place] [address] Moody Martinez M.D. [id number] (AA-%INHIBITION) AA PERCENT INHIBITION 87.9 % High 0.0-11.0 [facility] Comment on above: Performed By: #### L [id number] #### LAB [address] [address] Moody Martinez M.D. [id number] (AA-MA) AA MAXIMUM AMPLITUDE 14.7 mm Low 51.0-71.0 [facility] Comment on above: Performed By: #### L [id number] #### LAB [address] [address] Moody Martinez M.D. [id number] (ACTF-MA) ACTIVATOR F MAXIMUM AMPLITUDE 7.8 mm Normal 2.0-19.0 [facility] Comment on above: Performed By: #### L [id number] #### LAB [address] [address] Moody Martinez M.D. [id number] (ADP-%AGGREGATION) ADP PERCENT AGGREGATION 61.2 % Low 83.0-100.0 [facility] Comment on above: Performed By: #### L [id number] #### LAB [address] [place] [address] Moody Martinez M.D. [id number] (ADP-%INHIBITION) ADP PERCENT INHIBITION 38.8 % High 0.0-17.0 [facility] Comment on above: Performed By: #### L [id number] #### LAB [address] [address] Moody Martinez M.D. [id number] (ADP-MA) ADP MAXIMUM AMPLITUDE 42.7 mm Low 45.0-69.0 [facility] Comment on above: Performed By: #### L [id number] #### LAB [address] [address] Moody Martinez M.D. [id number] (HKH-MA) KAOLIN WITH HEPARINASE MAXIMUM AMPLITUDE 64.8 mm Normal 53.0-68.0 [facility] Comment on above: Performed By: #### L [id number] #### LAB [address] [place] [address] Moody Martinez M.D. [id number] TEG Platelet Mapping (Cardia c)on 10-27-2024 (AA-%Aggregation) AA Percent Aggregation 12.1 % Low 89.0 - 100.0 % [facility] (AA-%Inhibition) AA Percent Inhibition 87.9 % High 0.0 - 11.0 % [facility] (ADP-% Aggregation) ADP Percent Aggregation 61.2 % Low 83.0 - 100.0 % [facility] (ADP-%Inhibition) ADP PERCENT INHIBITION 38.8 % High 0.0 - 17.0 % [facility] Interpretation and review of laboratory results Abnormal [facility] Maximum amplitude AA induced Resonance TEG (Bld) [Length] 14.7 mm Low 51.0 - 71.0 mm [facility] Maximum amplitude activator F induced Resonance TEG (Bld) [Length] 7.8 mm 2.0 - 19.0 mm [facility] Maximum amplitude ADP induced Resonance TEG (Bld) [Length] 42.7 mm Low 45.0 - 69.0 mm [facility] Maximum amplitude kaolin induced after addition of heparinase Resonance TEG (Bld) [Length] 64.8 mm 53.0 - 68.0 mm [facility] TSHon 10-27-2024 TSH Qn 0.48 m[IU]/L Normal 0.27-4.20 [facility] Comment on above: Performed By: #### 4 6932 #### [facility] LAB [address] [place], [place] [address] Moody Martinez M.D. 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 [id number] BILIRUBIN, URINE Negative Normal Negative [facility] Comment on above: Order Comment: Injur y/Trauma or Illness?:Illness/Other How long have you had these symptoms (acute/chronic)?:Acute Reason for exam?:cross clamp of aorta for CPB Type of Exam?:Initial Additional signs and symptoms?:cp Performed By: #### 4 6625 #### LAB [address] [address] Moody Martinez M.D. [id number] BLOOD, URINE Negative Normal Negative [facility] Comment on above: Order Comment: Injur y/Trauma or Illness?:Illness/Other How long have you had these symptoms (acute/chronic)?:Acute Reason for exam?:cross clamp of aorta for CPB Type of Exam?:Initial Additional signs and symptoms?:cp Performed By: #### 4 6605 #### LAB [address] [address] Moody Martinez M.D. 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 [id number] Color (U) Colorless Normal Colorless, Yellow [facility] Comment on above: Order Comment: Injur y/Trauma or Illness?:Illness/Other How long have you had these symptoms (acute/chronic)?:Acute Reason for exam?:cross clamp of aorta for CPB Type of Exam?:Initial Additional signs and symptoms?:cp Performed By: #### 4 6630 #### LAB [address] [address] Moody Martinez M.D. 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 [id number] Hyaline casts LM Ql (Urine sed) 0-2 Normal 0-2 [facility] Comment on above: Order Comment: Injur y/Trauma or Illness?:Illness/Other How long have you had these symptoms (acute/chronic)?:Acute Reason for exam?:cross clamp of aorta for CPB Type of Exam?:Initial Additional signs and symptoms?:cp Performed By: #### 4 6607 #### LAB [address] [address] Moody Martinez M.D. [id number] Ketones Ql (U) Negative Normal Negative [facility] Comment on above: Order Comment: Injur y/Trauma or Illness?:Illness/Other How long have you had these symptoms (acute/chronic)?:Acute Reason for exam?:cross clamp of aorta for CPB Type of Exam?:Initial Additional signs and symptoms?:cp Performed By: #### 4 6680 #### LAB [address] [place] [address] Moody Martinez M.D. [id number] Leukocyte esterase Test strip Ql (U) Negative Normal Negative [facility] Comment on above: Order Comment: Injur y/Trauma or Illness?:Illness/Other How long have you had these symptoms (acute/chronic)?:Acute Reason for exam?:cross clamp of aorta for CPB Type of Exam?:Initial Additional signs and symptoms?:cp Performed By: #### 4 6631 #### LAB [address] [address] Moody Martinez M.D. [id number] MUCUS, URINE Rare Normal None Seen, Rare [facility] Comment on above: Order Comment: Injur y/Trauma or Illness?:Illness/Other How long have you had these symptoms (acute/chronic)?:Acute Reason for exam?:cross clamp of aorta for CPB Type of Exam?:Initial Additional signs and symptoms?:cp Performed By: #### 4 6675 #### LAB [address] [address] Moody Martinez M.D. [id number] NITRITE, URINE Negative Normal Negative [facility] Comment on above: Order Comment: Injur y/Trauma or Illness?:Illness/Other How long have you had these symptoms (acute/chronic)?:Acute Reason for exam?:cross clamp of aorta for CPB Type of Exam?:Initial Additional signs and symptoms?:cp Performed By: #### 4 6625 #### LAB [address] [address] Moody Martinez M.D. [id number] pH (U) 5.0 [pH] Normal 5.0-7.0 [facility] Comment on above: Order Comment: Injur y/Trauma or Illness?:Illness/Other How long have you had these symptoms (acute/chronic)?:Acute Reason for exam?:cross clamp of aorta for CPB Type of Exam?:Initial Additional signs and symptoms?:cp Performed By: #### 4 6625 #### LAB [address] [address] Moody Martinez M.D. [id number] PROTEIN, URINE Negative Normal Negative [facility] Comment on above: Order Comment: Injur y/Trauma or Illness?:Illness/Other How long have you had these symptoms (acute/chronic)?:Acute Reason for exam?:cross clamp of aorta for CPB Type of Exam?:Initial Additional signs and symptoms?:cp Performed By: #### 4 6651 #### LAB [address] [address] Moody Martinez M.D. [id number] RBC LM.HPF (Urine sed) [#/Area] 1 /[HPF] Normal 0-3 [facility] Comment on above: Order Comment: Injur y/Trauma or Illness?:Illness/Other How long have you had these symptoms (acute/chronic)?:Acute Reason for exam?:cross clamp of aorta for CPB Type of Exam?:Initial Additional signs and symptoms?:cp Performed By: #### 4 6638 #### LAB [address] [address] Moody Martinez M.D. [id number] Specific gravity (U) [Rel density] 1.017 Normal 1.005-1.025 [facility] Comment on above: Order Comment: Injur y/Trauma or Illness?:Illness/Other How long have you had these symptoms (acute/chronic)?:Acute Reason for exam?:cross clamp of aorta for CPB Type of Exam?:Initial Additional signs and symptoms?:cp Performed By: #### 4 6625 #### LAB [address] [address] Moody Martinez M.D. [id number] SQUAMOUS EPITHELIAL < Normal 0-4 [facility] Comment on above: Order Comment: Injur y/Trauma or Illness?:Illness/Other How long have you had these symptoms (acute/chronic)?:Acute Reason for exam?:cross clamp of aorta for CPB Type of Exam?:Initial Additional signs and symptoms?:cp Performed By: #### 4 6625 #### LAB [address] [address] Moody Martinez M.D. [id number] UROBILINOGEN, URINE <2.0 Normal <2.0 [facility] Comment on above: Order Comment: Injur y/Trauma or Illness?:Illness/Other How long have you had these symptoms (acute/chronic)?:Acute Reason for exam?:cross clamp of aorta for CPB Type of Exam?:Initial Additional signs and symptoms?:cp Performed By: #### 4 6625 #### LAB [address] [address] Moody Martinez M.D. [id number] WBC LM.HPF (Urine sed) [#/Area] 1 /[HPF] Normal 0-5 [facility] Comment on above: Order Comment: Injur y/Trauma or Illness?:Illness/Other How long have you had these symptoms (acute/chronic)?:Acute Reason for exam?:cross clamp of aorta for CPB Type of Exam?:Initial Additional signs and symptoms?:cp Performed By: #### 4 6611 #### LAB [address] [address] Moody Martinez M.D. [id number] URINE AEROBIC CULTUREon 10-02 URINE AEROBIC CULTURE URINE CULTURE No Growth (<1,000 CFU/mL) Normal [facility] Comment on above: Order Comment: If PO SITIVE, send for sensitivities per cardiac surgeon Performed By: #### 4 4053 ####[facility] [place] [address] Jose Cisse M.D. [id number] US DOPPLER CAROTIDon 024 US DOPPLER CAROTID Patient Info Name: ENOC ARMANDO Age: 78 years : 1945 Gender: Male Exam Date: 10/27/2024 10:32 AM Patient Status: Outpatient Soft Tile Setter: Lori Fagan RDMS (AB), RVS Referring Physician: MARIE Arriaga; Indications Z01.810 - Encounter for preprocedural cardiovascular examination I65.23 - Occlusion and stenosis of bilateral carotid arteries Procedure Description 18218 Duplex examination using B-mode, color and spectral [...] cm/s with calcification are noted. Based on orosco scale and color doppler, greater than 70% [...] be warranted. Clinical correlation is advised. Measurements Name Value Right PSV Right Prox CCA PSV 138 cm/s Right Mid CCA PSV 155 cm/s Right Distal CCA PSV 120 cm/s Right Prox ICA PSV 170 cm/s Right Mid ICA PSV 142 cm/s Right Distal ICA PSV 93 cm/s Right ECA PSV 273 cm/s Right Vert PSV 20 cm/s Right Prox SCA PSV 296 cm/s Rt ICA/CCA Ratio 1.4 Measurements Name Value Right EDV Right Prox CCA EDV 0 cm/s Right Mid CCA EDV 0 cm/s Right Distal CCA EDV 0 cm/s Right Prox ICA EDV 25 cm/s Right Mid ICA EDV 18 cm/s Right Distal ICA EDV 16 cm/s Right ECA EDV 0 cm/s Right Vert EDV 5 cm/s Right Prox SCA EDV 0 cm/s Measurements Name Value Left PSV Left Prox CCA PSV 150 cm/s Left Mid CCA PSV 135 cm/s Left Prox ICA PSV 623 cm/s Left Mid ICA PSV 199 cm/s Left Distal ICA PSV 173 cm/s Left ECA PSV 595 cm/s Left Vert PSV 160 cm/s Left Prox SCA PSV 327 cm/s Measurements Name Value Left EDV Left Prox CCA EDV 2 cm/s Left [...] Results c (more content not included)... Normal [facility] Comment on above: Order Comment: Dr. Sudha Parker to read US DOPPLER SEGMENTAL ARTERIA L LEGS BILATERALon 10-27-2024 US DOPPLER SEGMENTAL ARTERIAL LEGS BILATERAL Patient Info Name: ENOC ARMANDO Age: 78 years : 1945 Gender: Male Exam Date: 10/27/2024 9:50 AM Patient Status: Outpatient Soft Tile Setter: Ya Jacob Referring Physician: ZOILA POLLARD; Indications I73.9 - Peripheral vascular disease, unspecified Procedure Description 47139 Limited bilateral noninvasive physiologic studies of upper [...] pressures, Doppler waveforms and PVR waveforms suggest iliofemoral/femoral- popliteal stenotic or occlusive disease with moderately blunted [...] JO-ANN Nguyen DO on 10/27/2024 01:14 PM [facility] US RADIAL ARTERY MAPPING KARIN Bone 10-27-2024 US RADIAL ARTERY MAPPING BILATERAL Patient Info Name: ENOC ARMANDO Age: 78 years : 1945 Gender: Male Exam Date: 10/27/2024 11:23 AM Patient Status: Outpatient Soft Tile Setter: Lori Fagan RDMS (AB), RVS Referring Physician: MARIE Arriaga; Indications - possible radial artery harvest Z01.810 - Encounter for preprocedural cardiovascular examination Procedure Description 85789 Duplex scan of upper extremity arteries or [...] note that left palmar arch is incomplete. Name Value PSV Left Distal Brachial PSV 158 cm/s Left Distal Radial PSV 68 cm/s Left Distal Ulnar PSV 86 cm/s Left Artery AP Left Prox Radial 3.4 mm Left Mid Radial 3.3 mm Left Distal Radial 2.5 mm Name Value EDV Left Distal Brachial EDV 0 cm/s Left Distal Radial EDV 0 cm/s Left Distal Ulnar EDV 0 cm/s Risk Factors Patient has a history of hypertension, CHF, diabetes, CAD and tobacco use-current. . Report Signatures Finalized by Kristy Parker MD on 10/27/2024 11:50 AM [facility] Radial Artery Mapping Karin bone 10-27-2024 Patient Info Name: ENOC ARMANDO Age: 78 years : 1945 Gender: Male Exam Date: 10/27/2024 11:23 AM Patient Status: Outpatient Soft Tile Setter: Lori Fagan RDMS (AB), RVS Referring Physician: MARIE Arriaga; Indications - possible radial artery harvest Z01.810 - Encounter for preprocedural cardiovascular examination Procedure Description 50448 Duplex scan of upper extremity arteries or [...] note that left palmar arch is incomplete. Name Value PSV Left Distal Brachial PSV 158 cm/s Left Distal Radial PSV 68 cm/s Left Distal Ulnar PSV 86 cm/s Left Artery AP Left Prox Radial 3.4 mm Left Mid Radial 3.3 mm Left Distal Radial 2.5 mm Name Value EDV Left Distal Brachial EDV 0 cm/s Left Distal Radial EDV 0 cm/s Left Distal Ulnar EDV 0 cm/s Risk Factors Patient has a history of hypertension, CHF, diabetes, CAD and tobacco use-current. . Report Signatures Finalized by Kristy Parker MD on 10/27/2024 11:50 AM [facility] , Kristy Gardiner MD - 10/27/2024 Patient Info Name: ENOC ARMANDO Age: 78 years : 1945 Gender: Male Exam Date: 10/27/2024 11:23 AM Patient Status: Outpatient Soft Tile Setter: Lori Fagan RDMS (AB), RVS Referring Physician: MARIE Arriaga; Indications - possible radial artery harvest Z01.810 - Encounter for preprocedural cardiovascular examination Procedure Description 09079 Duplex scan of upper extremity arteries or [...] note that left palmar arch is incomplete. Name Value PSV Left Distal Brachial PSV 158 cm/s Left Distal Radial PSV 68 cm/s Left Distal Ulnar PSV 86 cm/s Left Artery AP Left Prox Radial 3.4 mm Left Mid Radial 3.3 mm Left Distal Radial 2.5 mm Name Value EDV Left Distal Brachial EDV 0 cm/s Left Distal Radial EDV 0 cm/s Left Distal Ulnar EDV 0 cm/s Risk Factors Patient has a history of hypertension, CHF, diabetes, CAD and tobacco use-current. . Report Signatures Finalized by Kristy Parker MD on 10/27/2024 11:50 AM [facility] SAPHENOUS VEIN MAPon 12-2 SAPHENOUS VEIN MAP Patient Info Name: ENOC ARMANDO Age: 78 years : 1945 Gender: Male Exam Date: 10/27/2024 11:13 AM Patient Status: Outpatient Soft Tile Setter: Lori Fagan RDMS (AB), RVS Referring Physician: MARIE Arriaga; Indications - GSV harvest Z01.810 - Encounter for preprocedural cardiovascular examination Procedure Description 14813 Duplex examination using B-mode, color and spectral Doppler of extremity veins including responses to compression and other maneuvers; unilateral or limited study. Conclusions * Right and left great saphenous veins are patent with measurements as listed. * Left great saphenous vein has thickened fuentes in the distal thigh. Measurements Name Value Right AP Right GSV Prox Thigh 3.1 mm Right GSV Mid Thigh 1.6 mm Right GSV Distal Thigh 1.2 mm Right GSV Knee 3.7 mm Right GSV Prox Calf 3.6 mm Right GSV Mid Calf 2.4 mm Right GSV Distal Calf 1.6 mm Measurements Name Value Left AP Left GSV Prox Thigh 2.5 mm Left [...] Kristy Parker MD on 10/27/2024 11:57 AM [facility] Ultrasound Saphenous vein [facility] 10-27-2024 Patient Info Name: ENOC ARMANDO Age: 78 years : 1945 Gender: Male Exam Date: 10/27/2024 11:13 AM Patient Status: Outpatient Soft Tile Setter: Lori Fagan RDMS (AB), RVS Referring Physician: MARIE Arriaga; Indications - GSV harvest Z01.810 - Encounter for preprocedural cardiovascular examination Procedure Description 85554 Duplex examination using B-mode, color and spectral Doppler of extremity veins including responses to compression and other maneuvers; unilateral or limited study. Conclusions * Right and left great saphenous veins are patent with measurements as listed. * Left great saphenous vein has thickened fuentes in the distal thigh. Measurements Name Value Right AP Right GSV Prox Thigh 3.1 mm Right GSV Mid Thigh 1.6 mm Right GSV Distal Thigh 1.2 mm Right GSV Knee 3.7 mm Right GSV Prox Calf 3.6 mm Right GSV Mid Calf 2.4 mm Right GSV Distal Calf 1.6 mm Measurements Name Value Left AP Left GSV Prox Thigh 2.5 mm Left [...] Kristy Parker MD on 10/27/2024 11:57 AM [facility] Kristy Parker MD - 10/27/2024 Patient Info Name: ENOC ARMANDO Age: 78 years : 1945 Gender: Male Exam Date: 10/27/2024 11:13 AM Patient Status: Outpatient Soft Tile Setter: Lori Fagan RDMS (AB), RVS Referring Physician: MARIE Arriaga; Indications - GSV harvest Z01.810 - Encounter for preprocedural cardiovascular examination Procedure Description 78587 Duplex examination using B-mode, color and spectral Doppler of extremity veins including responses to compression and other maneuvers; unilateral or limited study. Conclusions * Right and left great saphenous veins are patent with measurements as listed. * Left great saphenous vein has thickened fuentes in the distal thigh. Measurements Name Value Right AP Right GSV Prox Thigh 3.1 mm Right GSV Mid Thigh 1.6 mm Right GSV Distal Thigh 1.2 mm Right GSV Knee 3.7 mm Right GSV Prox Calf 3.6 mm Right GSV Mid Calf 2.4 mm Right GSV Distal Calf 1.6 mm Measurements Name Value Left AP Left GSV Prox Thigh 2.5 mm Left [...] Kristy Parker MD on 10/27/2024 11:57 AM [facility] Ultrasound doppler carotidon 10-27-2024 Patient Info Name: ENOC ARMANDO Age: 78 years : 1945 Gender: Male Exam Date: 10/27/2024 10:32 AM Patient Status: Outpatient Soft Tile Setter: Lori Fagan RDMS (AB), RVS Referring Physician: MARIE Arriaga; Indications Z01.810 - Encounter for preprocedural cardiovascular examination I65.23 - Occlusion and stenosis of bilateral carotid arteries Procedure Description 50961 Duplex examination using B-mode, color and spectral [...] cm/s with calcification are noted. Based on orosco scale and color doppler, greater than 70% [...] be warranted. Clinical correlation is advised. Measurements Name Value Right PSV Right Prox CCA PSV 138 cm/s Right Mid CCA PSV 155 cm/s Right Distal CCA PSV 120 cm/s Right Prox ICA PSV 170 cm/s Right Mid ICA PSV 142 cm/s Right Distal ICA PSV 93 cm/s Right ECA PSV 273 cm/s Right Vert PSV 20 cm/s Right Prox SCA PSV 296 cm/s Rt ICA/CCA Ratio 1.4 Measurements Name Value Right EDV Right Prox CCA EDV 0 cm/s Right Mid CCA EDV 0 cm/s Right Distal CCA EDV 0 cm/s Right Prox ICA EDV 25 cm/s Right Mid ICA EDV 18 cm/s Right Distal ICA EDV 16 cm/s Right ECA EDV 0 cm/s Right Vert EDV 5 cm/s Right Prox SCA EDV 0 cm/s Measurements Name Value Left PSV Left Prox CCA PSV 150 cm/s Left Mid CCA PSV 135 cm/s Left Prox ICA PSV 623 cm/s Left Mid ICA PSV 199 cm/s Left Distal ICA PSV 173 cm/s Left ECA PSV 595 cm/s Left Vert PSV 160 cm/s Left Prox SCA PSV 327 cm/s Measurements Name Value ----- (more content not included)... FUJI SYNAPSE Kristy Santos MD - 10/27/2024 Patient Info Name: ENOC ARMANDO Age: 78 years : 1945 Gender: Male Exam Date: 10/27/2024 10:32 AM Patient Status: Outpatient Soft Tile Setter: Lori Fagan RDMS (AB), RVS Referring Physician: MARIE Arriaga; Indications Z01.810 - Encounter for preprocedural cardiovascular examination I65.23 - Occlusion and stenosis of bilateral carotid arteries Procedure Description 71536 Duplex examination using B-mode, color and spectral [...] cm/s with calcification are noted. Based on orosco scale and color doppler, greater than 70% [...] be warranted. Clinical correlation is advised. Measurements Name Value Right PSV Right Prox CCA PSV 138 cm/s Right Mid CCA PSV 155 cm/s Right Distal CCA PSV 120 cm/s Right Prox ICA PSV 170 cm/s Right Mid ICA PSV 142 cm/s Right Distal ICA PSV 93 cm/s Right ECA PSV 273 cm/s Right Vert PSV 20 cm/s Right Prox SCA PSV 296 cm/s Rt ICA/CCA Ratio 1.4 Measurements Name Value Right EDV Right Prox CCA EDV 0 cm/s Right Mid CCA EDV 0 cm/s Right Distal CCA EDV 0 cm/s Right Prox ICA EDV 25 cm/s Right Mid ICA EDV 18 cm/s Right Distal ICA EDV 16 cm/s Right ECA EDV 0 cm/s Right Vert EDV 5 cm/s Right Prox SCA EDV 0 cm/s Measurements Name Value Left PSV Left Prox CCA PSV 150 cm/s Left Mid CCA PSV 135 cm/s Left Prox ICA PSV 623 cm/s Left Mid ICA PSV 199 cm/s Left Distal ICA PSV 173 cm/s Left ECA PSV 595 cm/s Left Vert PSV 160 cm/s Left Prox SCA PSV 327 cm/s Measurements Name Value Left EDV Left Prox CCA EDV 2 cm/s Left [...] Patient has a (more content not included)... [facility] Urinalysison 10-27-2024 Bacteria Auto Ql (U) Rare Abnormal None Se en /hpf [facility] Bilirubin Ql (U) Negative Negative [facility] th Clarity Refractometry automated (U) Clear Clear [facility] Color (U) Colorless Colorless, Yellow [facility] Epithelial cells.squamous Auto (Urine sed) [#/Area] [facility] Glucose Auto test strip (U) [Mass/Vol] 150 mg/dL Abnormal Negative, >=1000 [facility] Hemoglobin Auto test strip Ql (U) Negative Negative [facility] Hyaline casts Auto (Urine sed) [#/Area] 0-2 [facility] Interpretation and review of laboratory results Abnormal [facility] Ketones (U) [Mass/Vol] Negative Negat frank mg/dL [facility] Leukocyte esterase Auto test strip Ql (U) Negative Negative [facility] Mucus Auto (Urine sed) [#/Area] Rare None Seen, Rare /lpf [facility] Nitrite Auto test strip Ql (U) Negative Negative [facility] pH (U) 5 [pH] 5.0 - 7.0 [facility] Protein (U) [Mass/Vol] Negative Negat frank mg/dL [facility] RBC Auto (Urine sed) [#/Area] 1 [facility] Specific gravity (U) [Rel density] 1.017 1.005 - 1.025 [facility] Urobilinogen (U) [Mass/Vol] mg/dL NINF - 2.0 mg/dL [facility] WBC Auto (Urine sed) [#/Area] 1 [facility] Microscopic examination is performed on all urinalysis samples and only positive findings are reported. The test for blood on the chemical analytic portion of urinalysis may also be positive due to hemoglobinuria and myoglobinuria and if red blood cells are present they are quantified by microscopic examination. [facility] XR CHEST AP/PA AND LATon XR [...] effusion. IMPRESSION: Mild bilateral lower lung atelectasis. Neuravi/Zhilian Zhaopin Workstation ID: [id number] Dictated by: KAHLIL VARGHESE on WedOct 27, 2024 1:12:55 PM EST Transcribed by: DASIA ENGLAND on WedOct 27, 2024 1:21:29 PM EST Finalized by: KAHLIL VARGHESE on WedOct 27, 2024 3:01:09 PM EST Normal [facility] Comment on above: Order Comment: Injur y/Trauma or Illness?:Illness/OtherHow long have you had these symptoms (acute/chronic)?:AcuteReason for exam?:pre opHistory of cancer?:.Surgeries, chemotherapy, or radiation?:cardiac catheterizationType of Exam?:InitialAdditional signs and symptoms?:. XR Chest PA and Lateral and AP lateral-decubituson 10-27-2024 Mild bilateral lower lung atelectasis. Neuravi/Zhilian Zhaopin Workstation ID: [id number] GE RIS EXAMINATION: XR [...] No pneumothorax or sizable pleural effusion. Kahlil Luna, DO - 10/27/2024 EXAMINATION: XR CHEST AP/PA [...] lower lung atelectasis. JAR/trn Workstation ID: [id number] [facility] Radiology Study observation (narrative) [place] [facility] Chest PA and Lateral and AP lateral-decubitusOrdered By: Kahlil Varghese on 10-27-2024 [facility] Work Phone: aPTT Coag (Bld) [Time]on Interpretation and review of laboratory results Abnormal [facility] Therapeutic range for APTT's is 68 - 104 seconds [facility] BASIC METABOLIC PANELon 10-01 Calcium [Mass/Vol] 8.9 mg/dL Normal 8.6-10.3 [facility] Comment on above: Order Comment: FASTI NG:UNKNOWN FASTING: UNKNOWN Performed By: #### 6 399, 09110 #### [facility] [address], [address] [place] [address] Funeral Home Manager: Jadon Velez MD Chloride [Moles/Vol] 106 mmol/L Normal 98-110 [facility] Comment on above: Order Comment: FASTI NG:UNKNOWN FASTING: UNKNOWN Performed By: #### 6 399, 86117 #### [facility] [address], [address] [place] [address] Funeral Home Manager: Jadon Velez MD CO2 [Moles/Vol] 22 mmol/L Normal 20-32 [facility] Comment on above: Order Comment: FASTI NG:UNKNOWN FASTING: UNKNOWN Performed By: #### 6 399, 40273 #### [facility] [address], [address] [place] [address] Funeral Home Manager: Jadon Velez MD Creatinine [Mass/Vol] 2.36 mg/dL High 0.70-1.[address] [facility] Comment on above: Order Comment: FASTI NG:UNKNOWN FASTING: UNKNOWN Performed By: #### 6 399, 14749 #### [facility] [address], [address] [place] [address] Funeral Home Manager: Jadon Velez MD GFR/1.73 sq M.predicted among non-blacks MDRD (S/P/Bld) [Vol rate/Area] 27 mL/min/{1.73_m2} Low > OR = 60 [facility] Comment on above: Order Comment: FASTI NG:UNKNOWN FASTING: UNKNOWN Performed By: #### 6 399, 02499 #### [facility] [address], [address] [place] [address] Funeral Home Manager: Jadon Velez MD Glucose [Mass/Vol] 316 mg/dL High 65-99 [facility] Comment on above: Order Comment: FASTI NG:UNKNOWN FASTING: UNKNOWN Result Comment: Fasting reference interval For someone without known diabetes, a glucose value >125 mg/dL indicates that they may have diabetes and this should be confirmed with a follow-up test. Performed By: #### 6 399, 27399 #### [facility] [place] [address] Funeral Home Manager: Jadon Velez MD Potassium [Moles/Vol] 5.6 mmol/L High 3.5-5.[address] [facility] Comment on above: Order Comment: FASTI NG:UNKNOWN FASTING: UNKNOWN Performed By: #### 6 399, 89630 #### [facility] [place] [address] Funeral Home Manager: Jadon Velez MD Sodium [Moles/Vol] 137 mmol/L Normal 135-146 [facility] Comment on above: Order Comment: FASTI NG:UNKNOWN FASTING: UNKNOWN Performed By: #### 6 399, 39418 #### [facility] [address], [address] [place] [address] Funeral Home Manager: Jadon Velez MD Urea nitrogen [Mass/Vol] 66 mg/dL High 05-25 [facility] Comment on above: Order Comment: FASTI NG:UNKNOWN FASTING: UNKNOWN Performed By: #### 6 399, 00248 #### [facility] [place] [address] Funeral Home Manager: Jadon Velez MD Urea nitrogen/Creatinine [Mass ratio] 28 mg/mg High 04-22 [facility] Comment on above: Order Comment: FASTI NG:UNKNOWN FASTING: UNKNOWN Performed By: #### 6 399, 22573 #### [facility] [place] [address] [employer]eral Home Manager: Jadon Velez MD CBC (INCLUDES DIFF/PLT)on Basophils (Bld) [#/Vol] 0.213 10*3/uL High 0-200 [facility] Comment on above: Performed By: #### 6 399, 03440 #### [facility] [place] [address] Funeral Home Manager: Jadon Velez MD Basophils/100 WBC (Bld) 2.6 % Normal [facility] Comment on above: Performed By: #### 6 399, 02646 #### [facility] [place] [address] Funeral Home Manager: Jadon Velez MD Eosinophils (Bld) [#/Vol] 0.5 10*3/uL Normal 15-500 [facility] Comment on above: Performed By: #### 6 399, 32316 #### [facility] of [address], [address] [place] [address] Funeral Home Manager: Jadon Velez MD Eosinophils/100 WBC (Bld) 6.1 % Normal [facility] Comment on above: Performed By: #### 6 399, 54834 #### [facility] of [address], [address] [place] [address] Funeral Home Manager: Jadon Velez MD Erythrocyte distribution width (RBC) [Ratio] 12.9 % Normal 11.0-15.0 [facility] Comment on above: Performed By: #### 6 399, 64397 #### [facility] of [place] [address] Funeral Home Manager: Jadon Velez MD Hematocrit (Bld) [Volume fraction] 33.8 % Low 38.5-50.0 [facility] Comment on above: Performed By: #### 6 399, 38083 #### [facility] of [place] [address] Funeral Home Manager: Jadon Velez MD Hemoglobin (Bld) [Mass/Vol] 10.9 g/dL Low 13.2-17.1 [facility] Comment on above: Performed By: #### 6 399, 59423 #### [facility] of [place] [address] Funeral Home Manager: Jadon Velez MD Lymphocytes (Bld) [#/Vol] 2.28 10*3/uL Normal 850-3900 [facility] Comment on above: Performed By: #### 6 399, 94444 #### [facility] of [address], [address] [place] [address] Funeral Home Manager: Jadon Velez MD Lymphocytes/100 WBC (Bld) 27.8 % Normal [facility] Comment on above: Performed By: #### 6 399, 92588 #### [facility] of [place] [address] Funeral Home Manager: Jadon Velez MD MCH (RBC) [Entitic mass] 30.9 pg Normal 27.0-33.0 [facility] Comment on above: Performed By: #### 6 399, 62241 #### [facility] [place] [address] Funeral Home Manager: Jadon Velez MD MCHC (RBC) [Mass/Vol] 32.2 g/dL Normal 32.0-36.[address] [facility] Comment on above: Result Comment: For adults, a slight decrease in the calculated MCHC value (in the range of 30 to 32 g/dL) is most likely not clinically significant; however, it should be interpreted with caution in correlation with other red cell parameters and the patient's clinical condition. Performed By: #### 6 399, 12641 #### [facility] [place] [address] Funeral Home Manager: Jadon Velez MD MCV (RBC) [Entitic vol] 95.8 fL Normal 80.0-100.0 [facility] Comment on above: Performed By: #### 6 399, 71621 #### [facility] of [place] [address] Funeral Home Manager: Jadon Velez MD Monocytes (Bld) [#/Vol] 0.631 10*3/uL Normal 200-950 [facility] Comment on above: Performed By: #### 6 399, 40372 #### [facility] [place] [address] Funeral Home Manager: Jadon Velez MD Monocytes/100 WBC (Bld) 7.7 % Normal [facility] Comment on above: Performed By: #### 6 399, 51483 #### [facility] [place] [address] Funeral Home Manager: Jadon Velez MD Neutrophils (Bld) [#/Vol] 4.576 10*3/uL Normal 1500-78 00 [facility] Comment on above: Performed By: #### 6 399, 96934 #### [facility] [place] [id number] Funeral Home Manager: Jadon Velez MD Neutrophils/100 WBC (Bld) 55.8 % Normal [facility] Comment on above: Performed By: #### 6 399, 60361 #### [facility] of [place] [address] Funeral Home Manager: Jadon Velez MD Platelet mean volume (Bld) [Entitic vol] 11.5 fL Normal 7.5-12.5 [facility] Comment on above: Performed By: #### 6 399, 01942 #### [facility] of [place] [address] Funeral Home Manager: Jadon Velez MD Platelets (Bld) [#/Vol] 289 10*3/uL Normal 140-400 [facility] Comment on above: Performed By: #### 6 399, 41077 #### [facility] of [place] [address] Funeral Home Manager: Jadon Velez MD RBC (Bld) [#/Vol] 3.53 10*6/uL Low 4.20-5.80 [facility] Comment on above: Performed By: #### 6 399, 54623 #### [facility] of [place] [address] Funeral Home Manager: Jadon Velez MD WBC (Bld) [#/Vol] 8.2 10*3/uL Normal 3.8-10.8 [facility] Comment on above: Performed By: #### 6 399, 74213 #### [facility] of [place] [address] Funeral Home Manager: Jadon Velez MD Lipid Profileon 09-21-2024 Cholesterol [Mass/Vol] 148 mg/dL Normal 200 [facility] Comment on above: Result Comment: <200 mg/dL Desirable 200-240 mg/dL Borderline >240 mg/dL High Risk Performed By: #### L 500.4100 ####[facility] [address] [place], [address] Cholesterol in HDL [Mass/Vol] 49 mg/dL Normal [facility] Comment on above: Result Comment: The drugs N-Acetylcysteine and Metamizole may falselydepress this assay. Reference Range HDL <40 mg/dL Low HDL Cholesterol HDL >or= 60 mg/dL High HDL Cholesterol Performed By: #### L 500.4100 ####[facility] [address] [place], [address] Cholesterol in LDL [Mass/Vol] 87 mg/dL Normal 0-130 [facility] Comment on above: Performed By: #### L 500.4100 ####[facility] [address] [place], [address] Cholesterol in VLDL [Mass/Vol] 12 mg/dL Normal 5-40 [facility] Comment on above: Performed By: #### L 500.4100 ####[facility] [address] [place], [address] Triglyceride [Mass/Vol] 58 mg/dL Normal [facility] Comment on above: Result Comment: The drugs N-Acetylcysteine and Metamizole may falselydepress this assay.Serum Triglycerides Reference Interval Normal <150 mg/dL Borderline high 150 - 199 mg/dL High 200 - 499 mg/dL Very High > or = 500 mg/dL Performed By: #### L 500.4100 ####[facility] [address] [place], [address] Basic Metabolic Profile (BMP )on 09-15-2024 BUN Normal 7-18 [facility] Comment on above: Result Comment: Canc elled via OM: Order cancelled - Patient discharged Performed By: #### L 500.2500, L100.0100 ####[facility] [address] [place], [address] BUN/CRE Normal 10-20 [facility] Comment on above: Result Comment: Canc elled via OM: Order cancelled - Patient discharged Performed By: #### L 500.2500, L100.0100 ####[facility] [address] [place], [address] CA,Total Normal 8.5-10.1 [facility] Comment on above: Result Comment: Canc elled via OM: Order cancelled - Patient discharged Performed By: #### L 500.2500, L100.0100 ####[facility] [address] [place], [address] CL Normal 98-107 [facility] Comment on above: Result Comment: Canc elled via OM: Order cancelled - Patient discharged Performed By: #### L 500.2500, L100.0100 ####[facility] [address] [place], [address] CO2 Normal 21.0-32.0 [facility] Comment on above: Result Comment: Canc elled via OM: Order cancelled - Patient discharged Performed By: #### L 500.2500, L100.0100 ####[facility] [address] [place], [address] CREAT,SERUM Normal 0.70-1.30 [facility] Comment on above: Result Comment: Canc elled via OM: Order cancelled - Patient discharged Performed By: #### L 500.2500, L100.0100 ####[facility] [address] [place], [address] EST GFR Normal >60 [facility] Comment on above: Result Comment: Canc elled via OM: Order cancelled - Patient discharged Performed By: #### L 500.2500, L100.0100 ####[facility] [address] [place], [address] EST GFR - AA Normal >60 [facility] Comment on above: Result Comment: Canc elled via OM: Order cancelled - Patient discharged Performed By: #### L 500.2500, L100.0100 ####[facility] [address] [place], [address] GAP Normal 5-15 [facility] Comment on above: Result Comment: Canc elled via OM: Order cancelled - Patient discharged Performed By: #### L 500.2500, L100.0100 ####[facility] [address] [place], [address] GLU Normal 74-106 [facility] Comment on above: Result Comment: Canc elled via OM: Order cancelled - Patient discharged Performed By: #### L 500.2500, L100.0100 ####[facility] [address] [place], [address] Potassium Normal 3.5-5.1 [facility] Comment on above: Result Comment: Canc elled via OM: Order cancelled - Patient discharged Performed By: #### L 500.2500, L100.0100 ####[facility] [address] [place], [address] Basic Metabolic Profile (BMP) Normal 136-145 [facility] Comment on above: Result Comment: Canc elled via OM: Order cancelled - Patient discharged Performed By: #### L 500.2500, L100.0100 ####[facility] [address] [place], [address] CBC W/Diff, Automatedon 11-1 Absolute Neut Normal 2.0-7.7 [facility] Comment on above: Result Comment: Canc elled via OM: Order cancelled - Patient discharged Performed By: #### L 500.2500, L100.0100 ####[facility] [address] [place], [address] HCT Normal 40-54 [facility] Comment on above: Result Comment: Canc elled via OM: Order cancelled - Patient discharged Performed By: #### L 500.2500, L100.0100 ####[facility] [address] [place], [address] HGB Normal 13.0-16.5 [facility] Comment on above: Result Comment: Canc elled via OM: Order cancelled - Patient discharged Performed By: #### L 500.2500, L100.0100 ####[facility] [address] [place], [address] MCH Normal 27.0-32.0 [facility] Comment on above: Result Comment: Canc elled via OM: Order cancelled - Patient discharged Performed By: #### L 500.2500, L100.0100 ####[facility] [address] [place], [address] MCHC Normal 32-36 [facility] Comment on above: Result Comment: Canc elled via OM: Order cancelled - Patient discharged Performed By: #### L 500.2500, L100.0100 ####[facility] [address] [place], [address] MCV Normal 80-94 [facility] Comment on above: Result Comment: Canc elled via OM: Order cancelled - Patient discharged Performed By: #### L 500.2500, L100.0100 ####[facility] [address] [place], [address] NEUT% Normal 47-70 [facility] Comment on above: Result Comment: Canc elled via OM: Order cancelled - Patient discharged Performed By: #### L 500.2500, L100.0100 ####[facility] [address] [place], [address] PLT Normal 150-450 [facility] Comment on above: Result Comment: Canc elled via OM: Order cancelled - Patient discharged Performed By: #### L 500.2500, L100.0100 ####[facility] [address] [place], [address] RBC Normal 4.6-6.2 [facility] Comment on above: Result Comment: Canc elled via OM: Order cancelled - Patient discharged Performed By: #### L 500.2500, L100.0100 ####[facility] [address] [place], [address] RDW CV Normal 11.6-14.6 [facility] Comment on above: Result Comment: Canc elled via OM: Order cancelled - Patient discharged Performed By: #### L 500.2500, L100.0100 ####[facility] [address] [place], [address] RDW SD Normal 35.1-43.9 [facility] Comment on above: Result Comment: Canc elled via OM: Order cancelled - Patient discharged Performed By: #### L 500.2500, L100.0100 ####[facility] [address] [place], [address] WBC Normal 4.4-11.0 [facility] Comment on above: Result Comment: Canc elled via OM: Order cancelled - Patient discharged Performed By: #### L 500.2500, L100.0100 ####[facility] [address] [place], [address] Basic Metabolic Profile (BMP )on 09-14-2024 BUN/CRE 21.4 RATIO High 10-20 [facility] Comment on above: Performed By: #### L 100.0100, L500.2500 ####[facility] [address] [place], [address] CA,Total 8.7 mg/dL Normal 8.5-10.1 [facility] Comment on above: Performed By: #### L 100.0100, L500.2500 ####[facility] [address] [place], [address] Chloride [Moles/Vol] 104 mmol/L Normal 98-107 [facility] Comment on above: Performed By: #### L 100.0100, L500.2500 ####[facility] [address] [place], [address] CO2 [Moles/Vol] 24.0 mmol/L Normal 21.0-32.0 [facility] Comment on above: Performed By: #### L 100.0100, L500.2500 ####[facility] [address] [place], [address] Creatinine [Mass/Vol] 1.96 mg/dL High 0.70-1.30 [facility] Comment on above: Result Comment: The validity of the calculated GFR GFRAA in patients over70 years has not been determined. Clinical correlation isessential. Performed By: #### L 100.0100, L500.2500 ####[facility] [address] [place], [address] ECRCL 28.02 ml/min Normal [facility] Comment on above: Performed By: #### L 100.0100, L500.2500 ####[facility] [address] [place], [address] EST GFR - AA 43 mL/min Low >60 [facility] Comment on above: Result Comment: Afri can Cuban GFR Calc Performed By: #### L 100.0100, L500.2500 ####[facility] [address] [place], [address] GAP 7 Normal 5-15 [facility] Comment on above: Performed By: #### L 100.0100, L500.2500 ####[facility] [address] [place], [address] GFR/1.73 sq M.predicted among non-blacks MDRD (S/P/Bld) [Vol rate/Area] 35 mL/min/{1.73_m2} Low >60 [facility] Comment on above: Result Comment: Non- GFR Calc Performed By: #### L 100.0100, L500.2500 ####[facility] [address] [place], [address] Glucose [Mass/Vol] 292 mg/dL High 74-106 [facility] Comment on above: Result Comment: Gluc ose result greater than or equal to 200 mg/dLsuggests DIABETES MELLITUS per A.D.A. criteria. Performed By: #### L 100.0100, L500.2500 ####[facility] [address] [place], [address] Potassium [Moles/Vol] 4.0 mmol/L Normal 3.5-5.1 [facility] Comment on above: Performed By: #### L 100.0100, L500.2500 ####[facility] [facility] [address] [place], [address] Sodium [Moles/Vol] 135 mmol/L Low 136-145 [facility] Comment on above: Performed By: #### L 100.0100, L500.2500 ####[facility] [address] [place], [address] Urea nitrogen [Mass/Vol] 42 mg/dL High 7-18 [facility] Comment on above: Performed By: #### L 100.0100, L500.2500 ####[facility] [address] [place], [address] Bedside Glucoseon 09-14-2024 FINGERSTICK GLU 276 mg/dL High 74-106 [facility] Comment on above: Result Comment: Dr James sim FollowedInsulin GivenMANAGEMENT OF PATIENT CARE PER NURSING PROTOCOL Performed By: #### L 501.080 ####[facility] [address] [place], [address] CBC W/Diff, Automatedon 09-01 Absolute Lymph 1.66 X10 3/uL Normal 0.83-4.51 [facility] Comment on above: Performed By: #### L 100.0100, L500.2500 ####[facility] [address] [place], [address] Absolute Neut 7.6 X10 3/uL Normal 2.0-7.7 [facility] Comment on above: Performed By: #### L 100.0100, L500.2500 ####[facility] [address] [place], [address] Basophils/100 WBC (Bld) 0.9 % Normal 0-1 [facility] Comment on above: Performed By: #### L 100.0100, L500.2500 ####[facility] [address] [place], [address] Eosinophils/100 WBC (Bld) 2.2 % Normal 0-5 [facility] Comment on above: Performed By: #### L 100.0100, L500.2500 ####[facility] [address] [place], [address] Erythrocyte distribution width (RBC) [Ratio] 13.4 % Normal 11.6-14.6 [facility] Comment on above: Performed By: #### L 100.0100, L500.2500 ####[facility] [address] [place], [address] Hematocrit (Bld) [Volume fraction] 32.8 % Low 40-54 [facility] Comment on above: Performed By: #### L 100.0100, L500.2500 ####[facility] [address] [place], [address] Hemoglobin (Bld) [Mass/Vol] 11.1 g/dL Low 13.0-16.5 [facility] Comment on above: Performed By: #### L 100.0100, L500.2500 ####[facility] [address] [place], [address] IG% 0.300 Normal 0.0-0.9 [facility] Comment on above: Result Comment: IG% - Immature Granulocytes (promyelocytes, myelocytes andmetamyelocytes) > 1% indicates that a LEFT SHIFT is Present. Performed By: #### L 100.0100, L500.2500 ####[facility] [address] [place], [address] Lymphocytes/100 WBC (Bld) 15.7 % Low 19-41 [facility] Comment on above: Performed By: #### L 100.0100, L500.2500 ####[facility] [address] [place], [address] MCH (RBC) [Entitic mass] 30.7 pg Normal 27.0-32.0 [facility] Comment on above: Performed By: #### L 100.0100, L500.2500 ####[facility] [address] [place], [address] MCHC (RBC) [Mass/Vol] 33.8 g/dL Normal 32-36 [facility] Comment on above: Performed By: #### L 100.0100, L500.2500 ####[facility] [address] [place], [address] MCV (RBC) [Entitic vol] 90.6 fL Normal 80-94 [facility] Comment on above: Performed By: #### L 100.0100, L500.2500 ####[facility] [address] [place], [address] Monocytes/100 WBC (Bld) 9.0 % Normal 0-10 [facility] Comment on above: Performed By: #### L 100.0100, L500.2500 ####[facility] [address] [place], [address] Neutrophils/100 WBC (Bld) 71.9 % High 47-70 [facility] Comment on above: Performed By: #### L 100.0100, L500.2500 ####[facility] [address] [place], [address] Nucleated RBC (Bld) [#/Vol] 0 10*3/uL Normal 0-5 [facility] Comment on above: Performed By: #### L 100.0100, L500.2500 ####[facility] [address] [place], [address] Platelet mean volume (Bld) [Entitic vol] 11.9 fL Normal 6.2-12.0 [facility] Comment on above: Performed By: #### L 100.0100, L500.2500 ####[facility] [address] [place], [address] Platelets (Bld) [#/Vol] 186 10*3/uL Normal 150-450 [facility] Comment on above: Performed By: #### L 100.0100, L500.2500 ####[facility] [address] [place], [address] RBC (Bld) [#/Vol] 3.62 10*6/uL Low 4.6-6.2 [facility] Comment on above: Performed By: #### L 100.0100, L500.2500 ####[facility] [address] [place], [address] RDW SD 44.5 fl High 35.1-43.9 [facility] Comment on above: Performed By: #### L 100.0100, L500.2500 ####[facility] [address] [place], [address] WBC (Bld) [#/Vol] 10.5 10*3/uL Normal 4.4-11.0 [facility] Comment on above: Performed By: #### L 100.0100, L500.2500 ####[facility] [address] [place], [address] Basic Metabolic Profile (BMP )on 09-13-2024 BUN Normal 7-18 [facility] Comment on above: Result Comment: Canc elled via OM: MD Ordered Performed By: #### L 500.2500, L100.0100 ####[facility] [address] [place], [address] BUN/CRE Normal 10-20 [facility] Comment on above: Result Comment: Canc elled via OM: MD Ordered Performed By: #### L 500.2500, L100.0100 ####[facility] [address] [place], [address] CA,Total Normal 8.5-10.1 [facility] Comment on above: Result Comment: Canc elled via OM: MD Ordered Performed By: #### L 500.2500, L100.0100 ####[facility] [address] [place], [address] CL Normal 98-107 [facility] Comment on above: Result Comment: Canc elled via OM: MD Ordered Performed By: #### L 500.2500, L100.0100 ####[facility] [address] [place], [address] CO2 Normal 21.0-32.0 [facility] Comment on above: Result Comment: Canc elled via OM: MD Ordered Performed By: #### L 500.2500, L100.0100 ####[facility] [address] [place], [address] CREAT,SERUM Normal 0.70-1.30 [facility] Comment on above: Result Comment: Canc elled via OM: MD Ordered Performed By: #### L 500.2500, L100.0100 ####[facility] [address] [place], [address] EST GFR Normal >60 [facility] Comment on above: Result Comment: Canc elled via OM: MD Ordered Performed By: #### L 500.2500, L100.0100 ####[facility] [address] [place], [address] EST GFR - AA Normal >60 [facility] Comment on above: Result Comment: Canc elled via OM: MD Ordered Performed By: #### L 500.2500, L100.0100 ####[facility] [address] [place], [address] GAP Normal 5-15 [facility] Comment on above: Result Comment: Canc elled via OM: MD Ordered Performed By: #### L 500.2500, L100.0100 ####[facility] [address] [place], [address] GLU Normal 74-106 [facility] Comment on above: Result Comment: Canc elled via OM: MD Ordered Performed By: #### L 500.2500, L100.0100 ####[facility] [address] [place], [address] Potassium Normal 3.5-5.1 [facility] Comment on above: Result Comment: Canc elled via OM: MD Ordered Performed By: #### L 500.2500, L100.0100 ####[facility] [address] [place], [address] Basic Metabolic Profile (BMP) Normal 136-145 [facility] Comment on above: Result Comment: Canc elled via OM: MD Ordered Performed By: #### L 500.2500, L100.0100 ####[facility] [address] [place], [address] BUN/CRE 17.4 RATIO Normal 10-20 [facility] Comment on above: Performed By: #### L 501.5200, L500.2500, L501.2300, L100.0100 ####[facility] [address] [place], [address] CA,Total 8.7 mg/dL Normal 8.5-10.1 [facility] Comment on above: Performed By: #### L 501.5200, L500.2500, L501.2300, L100.0100 ####[facility] [address] [place], [address] Chloride [Moles/Vol] 105 mmol/L Normal 98-107 [facility] Comment on above: Performed By: #### L 501.5200, L500.2500, L501.2300, L100.0100 ####[facility] [address] [place], [address] CO2 [Moles/Vol] 28.0 mmol/L Normal 21.0-32.0 [facility] Comment on above: Performed By: #### L 501.5200, L500.2500, L501.2300, L100.0100 ####[facility] [address] [place], [address] Creatinine [Mass/Vol] 1.78 mg/dL High 0.70-1.30 [facility] Comment on above: Result Comment: The validity of the calculated GFR GFRAA in patients over70 years has not been determined. Clinical correlation isessential. Performed By: #### L 501.5200, L500.2500, L501.2300, L100.0100 ####[facility] [address] [place], [address] ECRCL 30.95 ml/min Normal [facility] Comment on above: Performed By: #### L 501.5200, L500.2500, L501.2300, L100.0100 ####[facility] [address] [place], [address] EST GFR - AA 47 mL/min Low >60 [facility] Comment on above: Result Comment: Afri can Cuban GFR Calc Performed By: #### L 501.5200, L500.2500, L501.2300, L100.0100 ####[facility] [address] [place], [address] GAP 7 Normal 5-15 [facility] Comment on above: Performed By: #### L 501.5200, L500.2500, L501.2300, L100.0100 ####[facility] [address] [place], [address] GFR/1.73 sq M.predicted among non-blacks MDRD (S/P/Bld) [Vol rate/Area] 39 mL/min/{1.73_m2} Low >60 [facility] Comment on above: Result Comment: Non- GFR Calc Performed By: #### L 501.5200, L500.2500, L501.2300, L100.0100 ####[facility] [address] [place], [address] Glucose [Mass/Vol] 138 mg/dL High 74-106 [facility] Comment on above: Result Comment: Fast ing Glucose result greater than or equal to 126 mg/dLsuggests DIABETES MELLITUS per A.D.A. criteria. Performed By: #### L 501.5200, L500.2500, L501.2300, L100.0100 ####[facility] [address] [place], [address] Potassium [Moles/Vol] 3.4 mmol/L Low 3.5-5.1 [facility] Comment on above: Performed By: #### L 501.5200, L500.2500, L501.2300, L100.0100 ####[facility] [address] [place], [address] Sodium [Moles/Vol] 140 mmol/L Normal 136-145 [facility] Comment on above: Performed By: #### L 501.5200, L500.2500, L501.2300, L100.0100 ####[facility] [address] [place], [address] Urea nitrogen [Mass/Vol] 31 mg/dL High 7-18 [facility] Comment on above: Performed By: #### L 501.5200, L500.2500, L501.2300, L100.0100 ####[facility] [address] [place], [address] Bedside Glucoseon 09-13-2024 FINGERSTICK GLU 281 mg/dL High 74-106 [facility] Comment on above: Result Comment: ADITI GEMENT OF PATIENT CARE PER NURSING PROTOCOL Performed By: #### L 501.080 ####[facility] [address] [place], [address] FINGERSTICK GLU 179 mg/dL High 74-106 [facility] Comment on above: Result Comment: ADITI GEMENT OF PATIENT CARE PER NURSING PROTOCOL Performed By: #### L 501.080 ####[facility] [address] [place], [address] FINGERSTICK GLU 234 mg/dL High 74-106 [facility] Comment on above: Result Comment: ADITI GEMENT OF PATIENT CARE PER NURSING PROTOCOL Performed By: #### L 501.080 ####[facility] [address] [place], [address] FINGERSTICK GLU 238 mg/dL High 74-106 [facility] Comment on above: Result Comment: ADITI GEMENT OF PATIENT CARE PER NURSING PROTOCOL Performed By: #### L 501.080 ####[facility] [address] [place], [address] FINGERSTICK GLU 126 mg/dL High 74-106 [facility] Comment on above: Result Comment: ADITI GEMENT OF PATIENT CARE PER NURSING PROTOCOL Performed By: #### L 501.080 ####[facility] [address] [place], [address] CBC W/Diff, Automatedon - Absolute Neut Normal 2.0-7.7 [facility] Comment on above: Result Comment: Canc elled via OM: MD Ordered Performed By: #### L 500.2500, L100.0100 ####[facility] [address] [place], [address] HCT Normal 40-54 [facility] Comment on above: Result Comment: Canc elled via OM: MD Ordered Performed By: #### L 500.2500, L100.0100 ####[facility] [address] [place], [address] HGB Normal 13.0-16.5 [facility] Comment on above: Result Comment: Canc elled via OM: MD Ordered Performed By: #### L 500.2500, L100.0100 ####[facility] [address] [place], [address] MCH Normal 27.0-32.0 [facility] Comment on above: Result Comment: Canc elled via OM: MD Ordered Performed By: #### L 500.2500, L100.0100 ####[facility] [address] [place], [address] MCHC Normal 32-36 [facility] Comment on above: Result Comment: Canc elled via OM: MD Ordered Performed By: #### L 500.2500, L100.0100 ####[facility] [address] [place], [address] MCV Normal 80-94 [facility] Comment on above: Result Comment: Canc elled via OM: MD Ordered Performed By: #### L 500.2500, L100.0100 ####[facility] [address] [place], [address] NEUT% Normal 47-70 [facility] Comment on above: Result Comment: Canc elled via OM: MD Ordered Performed By: #### L 500.2500, L100.0100 ####[facility] [address] [place], [address] PLT Normal 150-450 [facility] Comment on above: Result Comment: Canc elled via OM: MD Ordered Performed By: #### L 500.2500, L100.0100 ####[facility] [address] [place], [address] RBC Normal 4.6-6.2 [facility] Comment on above: Result Comment: Canc elled via OM: MD Ordered Performed By: #### L 500.2500, L100.0100 ####[facility] [address] [place], [address] RDW CV Normal 11.6-14.6 [facility] Comment on above: Result Comment: Canc elled via OM: MD Ordered Performed By: #### L 500.2500, L100.0100 ####[facility] [address] [place], [address] RDW SD Normal 35.1-43.9 [facility] Comment on above: Result Comment: Canc elled via OM: MD Ordered Performed By: #### L 500.2500, L100.0100 ####[facility] [address] [place], [address] WBC Normal 4.4-11.0 [facility] Comment on above: Result Comment: Canc elled via OM: MD Ordered Performed By: #### L 500.2500, L100.0100 ####[facility] [address] [place], [address] Absolute Lymph 2.32 X10 3/uL Normal 0.83-4.51 [facility] Comment on above: Performed By: #### L 501.5200, L500.2500, L501.2300, L100.0100 ####[facility] [address] [place], [address] Absolute Neut 7.4 X10 3/uL Normal 2.0-7.7 [facility] Comment on above: Performed By: #### L 501.5200, L500.2500, L501.2300, L100.0100 ####[facility] [address] [place], [address] Basophils/100 WBC (Bld) 0.8 % Normal 0-1 [facility] Comment on above: Performed By: #### L 501.5200, L500.2500, L501.2300, L100.0100 ####[facility] [address] [place], [address] Eosinophils/100 WBC (Bld) 1.3 % Normal 0-5 [facility] Comment on above: Performed By: #### L 501.5200, L500.2500, L501.2300, L100.0100 ####[facility] [address] [place], [address] Erythrocyte distribution width (RBC) [Ratio] 13.8 % Normal 11.6-14.6 [facility] Comment on above: Performed By: #### L 501.5200, L500.2500, L501.2300, L100.0100 ####[facility] [address] [place], [address] Hematocrit (Bld) [Volume fraction] 30.7 % Low 40-54 [facility] Comment on above: Performed By: #### L 501.5200, L500.2500, L501.2300, L100.0100 ####[facility] [address] [place], [address] Hemoglobin (Bld) [Mass/Vol] 10.4 g/dL Low 13.0-16.5 [facility] Comment on above: Performed By: #### L 501.5200, L500.2500, L501.2300, L100.0100 ####[facility] [address] [place], [address] IG% 0.400 Normal 0.0-0.9 [facility] Comment on above: Result Comment: IG% - Immature Granulocytes (promyelocytes, myelocytes andmetamyelocytes) > 1% indicates that a LEFT SHIFT is Present. Performed By: #### L 501.5200, L500.2500, L501.2300, L100.0100 ####[facility] [address] [place], [address] Lymphocytes/100 WBC (Bld) 21.2 % Normal 19-41 [facility] Comment on above: Performed By: #### L 501.5200, L500.2500, L501.2300, L100.0100 ####[facility] [address] [place], [address] MCH (RBC) [Entitic mass] 30.6 pg Normal 27.0-32.0 [facility] Comment on above: Performed By: #### L 501.5200, L500.2500, L501.2300, L100.0100 ####[facility] [address] [place], [address] MCHC (RBC) [Mass/Vol] 33.9 g/dL Normal 32-36 [facility] Comment on above: Performed By: #### L 501.5200, L500.2500, L501.2300, L100.0100 ####[facility] [address] [place], [address] MCV (RBC) [Entitic vol] 90.3 fL Normal 80-94 [facility] Comment on above: Performed By: #### L 501.5200, L500.2500, L501.2300, L100.0100 ####[facility] [address] [place], [address] Monocytes/100 WBC (Bld) 9.3 % Normal 0-10 [facility] Comment on above: Performed By: #### L 501.5200, L500.2500, L501.2300, L100.0100 ####[facility] [address] [place], [address] Neutrophils/100 WBC (Bld) 67.0 % Normal 47-70 [facility] Comment on above: Performed By: #### L 501.5200, L500.2500, L501.2300, L100.0100 ####[facility] [address] [place], [address] Nucleated RBC (Bld) [#/Vol] 0 10*3/uL Normal 0-5 [facility] Comment on above: Performed By: #### L 501.5200, L500.2500, L501.2300, L100.0100 ####[facility] [address] [place], [address] Platelet mean volume (Bld) [Entitic vol] 11.4 fL Normal 6.2-12.0 [facility] Comment on above: Performed By: #### L 501.5200, L500.2500, L501.2300, L100.0100 ####[facility] [address] [place], [address] Platelets (Bld) [#/Vol] 168 10*3/uL Normal 150-450 [facility] Comment on above: Performed By: #### L 501.5200, L500.2500, L501.2300, L100.0100 ####[facility] [address] [place], [address] RBC (Bld) [#/Vol] 3.40 10*6/uL Low 4.6-6.2 [facility] Comment on above: Performed By: #### L 501.5200, L500.2500, L501.2300, L100.0100 ####[facility] [address] [place], [address] RDW SD 45.1 fl High 35.1-43.9 [facility] Comment on above: Performed By: #### L 501.5200, L500.2500, L501.2300, L100.0100 ####[facility] [address] [place], [address] WBC (Bld) [#/Vol] 11.0 10*3/uL Normal 4.4-11.0 [facility] Comment on above: Performed By: #### L 501.5200, L500.2500, L501.2300, L100.0100 ####[facility] [address] [place], [address] Magnesiumon 09-13-2024 Magnesium [Mass/Vol] 2.0 mg/dL Normal 1.6-2.6 [facility] Comment on above: Performed By: #### L 501.5200, L500.2500, L501.2300, L100.0100 ####[facility] [address] [place], [address] Phosphoruson 09-13-2024 Phosphate [Mass/Vol] 3.2 mg/dL Normal 2.5-4.9 [facility] Comment on above: Performed By: #### L 501.5200, L500.2500, L501.2300, L100.0100 ####[facility] [address] [place], [address] 12 Lead EKGon 09-12-2024 12 Lead EKG Normal [facility] BNP,B-Type NATRIURETIC PEPTI Silviano 09-12-2024 Natriuretic peptide B (Bld) [Mass/Vol] 903.4 pg/mL High 0-100 [facility] Comment on above: Performed By: #### L 300.3900, L100.0100, L300.4310, L500.2500, L503.6620, L501.5425, L501.5200 ####[facility] [address] [place], [address] Basic Metabolic Profile (BMP )on 09-12-2024 BUN/CRE 14.5 RATIO Normal 10-20 [facility] Comment on above: Order Comment: 1Y Performed By: #### L 300.3900, L100.0100, L300.4310, L500.2500, L503.6620, L501.5425, L501.5200 ####[facility] [address] [place], [address] CA,Total 9.1 mg/dL Normal 8.5-10.1 [facility] Comment on above: Order Comment: 1Y Performed By: #### L 300.3900, L100.0100, L300.4310, L500.2500, L503.6620, L501.5425, L501.5200 ####[facility] [address] [place], [address] Chloride [Moles/Vol] 105 mmol/L Normal 98-107 [facility] Comment on above: Order Comment: 1Y Performed By: #### L 300.3900, L100.0100, L300.4310, L500.2500, L503.6620, L501.5425, L501.5200 ####[facility] [address] [place], [address] CO2 [Moles/Vol] 22.0 mmol/L Normal 21.0-32.0 [facility] Comment on above: Order Comment: 1Y Performed By: #### L 300.3900, L100.0100, L300.4310, L500.2500, L503.6620, L501.5425, L501.5200 ####[facility] [address] [place], [address] Creatinine [Mass/Vol] 1.86 mg/dL High 0.70-1.30 [facility] Comment on above: Order Comment: 1Y Result Comment: The validity of the calculated GFR GFRAA in patients over70 years has not been determined. Clinical correlation isessential. Performed By: #### L 300.3900, L100.0100, L300.4310, L500.2500, L503.6620, L501.5425, L501.5200 ####[facility] [address] [place], [address] ECRCL 29.61 ml/min Normal [facility] Comment on above: Order Comment: 1Y Performed By: #### L 300.3900, L100.0100, L300.4310, L500.2500, L503.6620, L501.5425, L501.5200 ####[facility] [address] [place], [address] EST GFR - AA 45 mL/min Low >60 [facility] Comment on above: Order Comment: 1Y Result Comment: Afri can Cuban GFR Calc Performed By: #### L 300.3900, L100.0100, L300.4310, L500.2500, L503.6620, L501.5425, L501.5200 ####[facility] [address] [place], [address] GAP 11 Normal 5-15 [facility] Comment on above: Order Comment: 1Y Performed By: #### L 300.3900, L100.0100, L300.4310, L500.2500, L503.6620, L501.5425, L501.5200 ####[facility] [address] [place], [address] GFR/1.73 sq M.predicted among non-blacks MDRD (S/P/Bld) [Vol rate/Area] 37 mL/min/{1.73_m2} Low >60 [facility] Comment on above: Order Comment: 1Y Result Comment: Non- GFR Calc Performed By: #### L 300.3900, L100.0100, L300.4310, L500.2500, L503.6620, L501.5425, L501.5200 ####[facility] [address] [place], [address] Glucose [Mass/Vol] 369 mg/dL High 74-106 [facility] Comment on above: Order Comment: 1Y Result Comment: Gluc ose result greater than or equal to 200 mg/dLsuggests DIABETES MELLITUS per A.D.A. criteria. Performed By: #### L 300.3900, L100.0100, L300.4310, L500.2500, L503.6620, L501.5425, L501.5200 ####[facility] [address] [place], [address] Potassium [Moles/Vol] 4.1 mmol/L Normal 3.5-5.1 [facility] Comment on above: Order Comment: 1Y Performed By: #### L 300.3900, L100.0100, L300.4310, L500.2500, L503.6620, L501.5425, L501.5200 ####[facility] [address] [place], [address] Sodium [Moles/Vol] 138 mmol/L Normal 136-145 [facility] Comment on above: Order Comment: 1Y Performed By: #### L 300.3900, L100.0100, L300.4310, L500.2500, L503.6620, L501.5425, L501.5200 ####[facility] [address] [place], [address] Urea nitrogen [Mass/Vol] 27 mg/dL High 7-18 [facility] Comment on above: Order Comment: 1Y Performed By: #### L 300.3900, L100.0100, L300.4310, L500.2500, L503.6620, L501.5425, L501.5200 ####[facility] [address] [place], [address] Bedside Glucoseon 09-12-2024 FINGERSTICK GLU 202 mg/dL High [facility]106 [facility] Comment on above: Result Comment: ADITI GEMENT OF PATIENT CARE PER NURSING PROTOCOL Performed By: #### L 501.080 ####[facility] [address] [place], [address] FINGERSTICK GLU 122 mg/dL High [address] [place] [address] Comment on above: Result Comment: ADITI GEMENT OF PATIENT CARE PER NURSING PROTOCOL Performed By: #### L 501.080 ####[facility] [address] [place], [address] FINGERSTICK GLU 398 mg/dL High [facility]106 [facility] Comment on above: Result Comment: ADITI GEMENT OF PATIENT CARE PER NURSING PROTOCOL Performed By: #### L 501.080 ####[facility] [address] [place], [address] FINGERSTICK GLU 377 mg/dL High [address] [place] [address] Comment on above: Result Comment: ADITI GEMENT OF PATIENT CARE PER NURSING PROTOCOL Performed By: #### L 501.080 ####[facility] [address] [place], [address] CBC W/Diff, Automatedon 09-01 Absolute Lymph 2.62 X10 3/uL Normal 0.83-4.51 [facility] Comment on above: Performed By: #### L 300.3900, L100.0100, L300.4310, L500.2500, L503.6620, L501.5425, L501.5200 ####[facility] [address] [place], [address] Absolute Neut 19.7 X10 3/uL High 2.0-7.7 [facility] Comment on above: Performed By: #### L 300.3900, L100.0100, L300.4310, L500.2500, L503.6620, L501.5425, L501.5200 ####[facility] [address] [place], [address] Basophils/100 WBC (Bld) 0.7 % Normal 0-1 [facility] Comment on above: Performed By: #### L 300.3900, L100.0100, L300.4310, L500.2500, L503.6620, L501.5425, L501.5200 ####[facility] [address] [place], [address] Eosinophils/100 WBC (Bld) 0.8 % Normal 0-5 [facility] Comment on above: Performed By: #### L 300.3900, L100.0100, L300.4310, L500.2500, L503.6620, L501.5425, L501.5200 ####[facility] [address] [place], [address] Erythrocyte distribution width (RBC) [Ratio] 13.8 % Normal 11.6-14.6 [facility] Comment on above: Performed By: #### L 300.3900, L100.0100, L300.4310, L500.2500, L503.6620, L501.5425, L501.5200 ####[facility] [address] [place], [address] Hematocrit (Bld) [Volume fraction] 38.9 % Low 40-54 [facility] Comment on above: Performed By: #### L 300.3900, L100.0100, L300.4310, L500.2500, L503.6620, L501.5425, L501.5200 ####[facility] [address] [place], [address] Hemoglobin (Bld) [Mass/Vol] 13.1 g/dL Normal 13.0-16.5 [facility] Comment on above: Performed By: #### L 300.3900, L100.0100, L300.4310, L500.2500, L503.6620, L501.5425, L501.5200 ####[facility] [address] [place], [address] IG% 0.800 Normal 0.0-0.9 [facility] Comment on above: Result Comment: IG% - Immature Granulocytes (promyelocytes, myelocytes andmetamyelocytes) > 1% indicates that a LEFT SHIFT is Present. Performed By: #### L 300.3900, L100.0100, L300.4310, L500.2500, L503.6620, L501.5425, L501.5200 ####[facility] [address] [place], [address] Lymphocytes/100 WBC (Bld) 10.7 % Low 19-41 [facility] Comment on above: Performed By: #### L 300.3900, L100.0100, L300.4310, L500.2500, L503.6620, L501.5425, L501.5200 ####[facility] [address] [place], [address] MCH (RBC) [Entitic mass] 30.6 pg Normal 27.0-32.0 [facility] Comment on above: Performed By: #### L 300.3900, L100.0100, L300.4310, L500.2500, L503.6620, L501.5425, L501.5200 ####[facility] [address] [place], [address] MCHC (RBC) [Mass/Vol] 33.7 g/dL Normal 32-36 [facility] Comment on above: Performed By: #### L 300.3900, L100.0100, L300.4310, L500.2500, L503.6620, L501.5425, L501.5200 ####[facility] [address] [place], [address] MCV (RBC) [Entitic vol] 90.9 fL Normal 80-94 [facility] Comment on above: Performed By: #### L 300.3900, L100.0100, L300.4310, L500.2500, L503.6620, L501.5425, L501.5200 ####[facility] [address] [place], [address] Monocytes/100 WBC (Bld) 6.2 % Normal 0-10 [facility] Comment on above: Performed By: #### L 300.3900, L100.0100, L300.4310, L500.2500, L503.6620, L501.5425, L501.5200 ####[facility] [address] [place], [address] Neutrophils/100 WBC (Bld) 80.8 % High 47-70 [facility] Comment on above: Performed By: #### L 300.3900, L100.0100, L300.4310, L500.2500, L503.6620, L501.5425, L501.5200 ####[facility] [address] [place], [address] Nucleated RBC (Bld) [#/Vol] 0 10*3/uL Normal 0-5 [facility] Comment on above: Performed By: #### L 300.3900, L100.0100, L300.4310, L500.2500, L503.6620, L501.5425, L501.5200 ####[facility] [address] [place], [address] Platelet mean volume (Bld) [Entitic vol] 11.4 fL Normal 6.2-12.0 [facility] Comment on above: Performed By: #### L 300.3900, L100.0100, L300.4310, L500.2500, L503.6620, L501.5425, L501.5200 ####[facility] [address] [place], [address] Platelets (Bld) [#/Vol] 227 10*3/uL Normal 150-450 [facility] Comment on above: Performed By: #### L 300.3900, L100.0100, L300.4310, L500.2500, L503.6620, L501.5425, L501.5200 ####[facility] [address] [place], [address] RBC (Bld) [#/Vol] 4.28 10*6/uL Low 4.6-6.2 [facility] Comment on above: Performed By: #### L 300.3900, L100.0100, L300.4310, L500.2500, L503.6620, L501.5425, L501.5200 ####[facility] [address] [place], [address] RDW SD 46.5 fl High 35.1-43.9 [facility] Comment on above: Performed By: #### L 300.3900, L100.0100, L300.4310, L500.2500, L503.6620, L501.5425, L501.5200 ####[facility] [address] [place], [address] WBC (Bld) [#/Vol] 24.4 10*3/uL High 4.4-11.0 [facility] Comment on above: Performed By: #### L 300.3900, L100.0100, L300.4310, L500.2500, L503.6620, L501.5425, L501.5200 ####[facility] [address] [place], [address] Chest 1 View (Portable)on Chest 1 View (Portable) Normal W [facility] Echo Completeon 09-12-2024 Echo Complete Normal [facility] Emergency Department Summary on 09-12-2024 Emergency Department Summary Normal [facility] Kidney and Bladderon 024 Kidney and Bladder Normal [facility] L501.4020on 09-12-2024 TROPONIN-I HS 346 pg/mL Invalid Interpretation Code 3.0-78.0 [facility] Comment on above: Order Comment: 'TROP ' Serial specimen #1, #2 or #3: 3 Result Comment: Crit ical Result(s) Called at: 09:19:13 09/12/2024 by:Eve Mendoza to Tania Cruz. Results read back by same. Please Note: New Test Units and Gender Specific Reference Ranges. For more information see Policy Stat Procedure [place] High Sensitivity Troponin (TNIH) and attachments. Performed By: #### L 501.4020 ####[facility] [address] [place], [address] TROPONIN-I HS 205 pg/mL Invalid Interpretation Code 3.0-78.0 [facility] Comment on above: Result Comment: Crit ical Result(s) Called at: 06:27:52 09/12/2024 by:Eve Mendoza to Steffanie. Results read back by same. Please Note: New Test Units and Gender Specific Reference Ranges. For more information see Policy Stat Procedure [place] High Sensitivity Troponin (TNIH) and attachments. Performed By: #### L 501.4020 ####[facility] [address] [place], [address] L501.5425on 09-12-2024 TROPONIN-I HS 57 pg/mL Normal 3.0-78.0 [facility] Comment on above: Order Comment: 1Y Result Comment: Plea Note: New Test Units and Gender Specific Reference Ranges. For more information see Policy Stat Procedure [place] High Sensitivity Troponin (TNIH) and attachments. Performed By: #### L 300.3900, L100.0100, L300.4310, L500.2500, L503.6620, L501.5425, L501.5200 ####[facility] [address] [place], [address] Magnesiumon 09-12-2024 Magnesium [Mass/Vol] 2.1 mg/dL Normal 1.6-2.6 [facility] Comment on above: Order Comment: 1Y Performed By: #### L 300.3900, L100.0100, L300.4310, L500.2500, L503.6620, L501.5425, L501.5200 ####[facility] [address] [place], [address] Partial Thromboplast Timeon 09-12-2024 aPTT Coag (Bld) [Time] 35.1 s Normal 24.1-36.2 [facility] Comment on above: Performed By: #### L 300.3900, L100.0100, L300.4310, L500.2500, L503.6620, L501.5425, L501.5200 ####[facility] [address] [place], [address] Prothrombin Time w/INRon INR Coag (PPP) [Relative time] 1.1 {INR} Normal [facility] Comment on above: Performed By: #### L 300.3900, L100.0100, L300.4310, L500.2500, L503.6620, L501.5425, L501.5200 ####[facility] [address] [place], [address] PT Coag (PPP) [Time] 14.6 s Normal 11.7-14.9 [facility] Comment on above: Performed By: #### L 300.3900, L100.0100, L300.4310, L500.2500, L503.6620, L501.5425, L501.5200 ####[facility] [address] [place], [address] Renal Artery Duplex Ultrasou ndon 09-12-2024 Renal Artery Duplex Ultrasound Normal [facility] CBC W Auto Differential pane l (Bld)on 07-07-2024 Basophils (Bld) [#/Vol] 0.09 x10*3/uL Normal 0.00-0.10 [facility] Comment on above: Performed By: #### 5 7021-8 #### MAGGI PARNELL ([id number]) [facility] ([facility]) [address] [place] [address] Basophils/100 WBC (Bld) 1.1 % Normal 0.0-2.0 U [facility] Comment on above: Performed By: #### 5 7021-8 #### MAGGI PARNELL ([id number]) [facility] ([facility]) [address] [place] [address] Eosinophils (Bld) [#/Vol] 0.43 x10*3/uL High 0.00-0. 40 [facility] Comment on above: Performed By: #### 5 7021-8 #### MAGGI PARNELL ([id number]) [facility] ([facility]) [address] [place] [address] Eosinophils/100 WBC (Bld) 5.4 % Normal 0.0-6.0 [facility] Comment on above: Performed By: #### 5 7021-8 #### MAGGI PARNELL ([id number]) [facility] ([facility]) [address] [place] [address] Erythrocyte distribution width (RBC) [Ratio] 13.5 % Normal 11.5-14.5 [facility] Comment on above: Performed By: #### 5 7021-8 #### MAGGI PARNELL ([id number]) [facility] ([facility]) [address] [place] [address] Hematocrit (Bld) [Volume fraction] 43.5 % Normal 41.0-52.0 [facility] Comment on above: Performed By: #### 5 7021-8 #### MAGGI PARNELL ([id number]) [facility] ([facility]) [address] [place] [address] Hemoglobin (Bld) [Mass/Vol] 13.6 g/dL Normal 13.5-17.5 [facility] Comment on above: Performed By: #### 5 7021-8 #### MAGGI PARNELL ([id number]) [facility] ([facility]) [address] [place] [address] Immature granulocytes (Bld) [#/Vol] 0.02 x10*3/uL Normal 0.00-0.50 [facility] Comment on above: Performed By: #### 5 7021-8 #### MAGGI PARNELL ([id number]) [facility] ([facility]) [address] [place] [address] Immature granulocytes/100 WBC (Bld) 0.3 % Normal 0.0-0.9 [facility] Comment on above: Result Comment: Arielle ture Granulocyte Count (IG) includes promyelocytes, myelocytes and metamyelocytes but does not include bands. Percent differential counts (%) should be interpreted in the context of the absolute cell counts (cells/UL). Performed By: #### 5 7021-8 #### MAGGI PARNELL ([id number]) [facility] ([facility]) [address] [place] [address] Lymphocytes (Bld) [#/Vol] 2.08 x10*3/uL Normal 0.80-3. 00 [facility] Comment on above: Performed By: #### 5 7021-8 #### MAGGI PARNELL ([id number]) [facility] ([facility]) [address] [place] [address] Lymphocytes/100 WBC (Bld) 26.3 % Normal 13.0-44.0 [facility] Comment on above: Performed By: #### 5 7021-8 #### MAGGI PARNELL ([id number]) [facility] ([facility]) [address] [place] [address] MCH (RBC) [Entitic mass] 30.4 pg Normal 26.0-34.0 [facility] Comment on above: Performed By: #### 5 7021-8 #### MAGGI PARNELL ([id number]) [facility] ([facility]) [address] [place] [address] MCHC (RBC) [Mass/Vol] 31.3 g/dL Low 32.0-36.0 [facility] Comment on above: Performed By: #### 5 7021-8 #### MAGGI PARNELL ([id number]) [facility] ([facility]) [address] [place] [address] MCV (RBC) [Entitic vol] 97 fL Normal 80-100 U [facility] Comment on above: Performed By: #### 5 7021-8 #### MAGGI PARNELL ([id number]) [facility] ([facility]) [address] [place] [address] 22448 Monocytes (Bld) [#/Vol] 0.60 x10*3/uL Normal 0.05-0.80 [facility] Comment on above: Performed By: #### 5 7021-8 #### MAGGI PARNELL ([id number]) [facility] ([facility]) [address] [place] [address] Monocytes/100 WBC (Bld) 7.6 % Normal 2.0-10.0 [facility] Comment on above: Performed By: #### 5 7021-8 #### MAGGI PARNELL ([id number]) [facility] ([facility]) [address] [place] [address] Neutrophils (Bld) [#/Vol] 4.68 x10*3/uL Normal 1.60-5. 50 [facility] Comment on above: Result Comment: Perc ent differential counts (%) should be interpreted in the context of the absolute cell counts (cells/uL). Performed By: #### 5 7021-8 #### MAGGI PARNELL ([id number]) [facility] ([facility]) [address] [place] [address]44[address] Neutrophils/100 WBC (Bld) 59.3 % Normal 40.0-80.0 [facility] Comment on above: Performed By: #### 5 7021-8 #### MAGGI PARNELL ([id number]) [facility] ([facility]) [address] [place] [address] Nucleated RBC/100 WBC (Bld) [Ratio] 0.0 /100 WBCs Normal 0.0-0.0 [facility] Comment on above: Performed By: #### 5 7021-8 #### MAGGI PARNELL ([id number]) [facility] ([facility]) [address] [place] [address] Platelets (Bld) [#/Vol] 260 x10*3/uL Normal 150-450 [facility] Comment on above: Performed By: #### 5 7021-8 #### MAGGI PARNELL ([id number]) [facility] ([facility]) [address] [place] [address] RBC (Bld) [#/Vol] 4.48 x10*6/uL Low 4.50-5.90 [facility] Comment on above: Performed By: #### 5 7021-8 #### MAGGI PARNELL ([id number]) [facility] ([facility]) [address] [place] [address] WBC (Bld) [#/Vol] 7.9 x10*3/uL Normal 4.4-11.3 [facility] Comment on above: Performed By: #### 5 7021-8 #### MAGGI PARNELL ([id number]) [facility] ([facility]) [address] [place] [address] Comprehensive metabolic 2000 panelon 07-07-2024 Albumin BCP dye [Mass/Vol] 4.3 g/dL Normal 3.4-5.0 [facility] Comment on above: Performed By: #### 2 4323-8 #### MAGGI PARNELL ([id number]) [facility] ([facility]) [address] [place], [place] [address] ALP [Catalytic activity/Vol] 69 U/L Normal 33-136 [facility] Comment on above: Performed By: #### 2 4323-8 #### MAGGI PARNELL ([id number]) [facility] ([facility]) [address] [place] [address] ALT With P-5'-P [Catalytic activity/Vol] 8 U/L Low 10-52 [facility] Comment on above: Result Comment: Twila ents treated with Sulfasalazine may generate falsely decreased results for ALT. Performed By: #### 2 4323-8 #### MAGGI PARNELL ([id number]) [facility] ([facility]) [address] [place] [address] Anion gap [Moles/Vol] 14 mmol/L Normal 10-20 [facility] Comment on above: Performed By: #### 2 4323-8 #### MAGGI PARNELL ([id number]) [facility] ([facility]) [address] [place] [address] AST With P-5'-P [Catalytic activity/Vol] 13 U/L Normal 9-39 [facility] Comment on above: Performed By: #### 2 432-8 #### MAGGI PARNLEL ([id number]) [facility] ([facility]) [address] [place] [address] Bilirubin [Mass/Vol] 0.5 mg/dL Normal 0.0-1.2 [facility] Comment on above: Performed By: #### 2 432-8 #### MGAGI PARNELL ([id number]) [facility] ([facility]) [address] [place] [address] Calcium [Mass/Vol] 9.5 mg/dL Normal 8.6-10.3 [facility] Comment on above: Performed By: #### 2 4323-8 #### MAGGI PARNELL ([id number]) [facility] ([facility]) [address] [place] [address] Chloride [Moles/Vol] 106 mmol/L Normal 98-107 [facility] Comment on above: Performed By: #### 2 4323-8 #### MAGGI PARNELL ([id number]) [facility] ([facility]) [facility] [place] [address] CO2 [Moles/Vol] 27 mmol/L Normal 21-32 [facility] Comment on above: Performed By: #### 2 4323-8 #### MAGGI PARNELL ([id number]) [facility] ([facility]) [address] [place] [address] Creatinine [Mass/Vol] 1.61 mg/dL High 0.50-1.30 [facility] Comment on above: Performed By: #### 2 4323-8 #### MAGGI PARNELL ([id number]) [facility] ([facility]) [address] [place] [address] Glomerular filtration rate/1.73 sq M.predicted 43 mL/min/1.73m*2 Low >60 [facility] Comment on above: Result Comment: Calc ulations of estimated GFR are performed using the 2020 CKD-EPI Study Refit equation without the race variable for the IDMS-Traceable creatinine methods. https://jasn.asnjournals.org/content///ASN.20 16129727 Performed By: #### 2 4323-8 #### MAGGI PARNELL ([id number]) [facility] ([facility]) [address] [place] [address] Glucose [Mass/Vol] 119 mg/dL High 74-99 [facility] Comment on above: Performed By: #### 2 4323-8 #### MAGGI PARNELL ([id number]) [facility] ([facility]) [address] [place] [address]2658 Potassium [Moles/Vol] 4.0 mmol/L Normal 3.5-5.3 [facility] Comment on above: Performed By: #### 2 4323-8 #### MAGGI PARNELL ([id number]) [facility] ([facility]) [address] [place] [address]44[address] Protein [Mass/Vol] 6.8 g/dL Normal 6.4-8.2 [facility] Comment on above: Performed By: #### 2 4323-8 #### MAGGI PARNELL ([id number]) [facility] ([facility]) [address] [place] [id number] Sodium [Moles/Vol] 143 mmol/L Normal 136-145 [facility] Comment on above: Performed By: #### 2 4323-8 #### MAGGI PARNELL ([id number]) [facility] ([facility]) [address] [place] [address] Urea nitrogen [Mass/Vol] 28 mg/dL High 6-23 [facility] Comment on above: Performed By: #### 2 4323-8 #### MAGGI PARNELL ([id number]) [facility] ([facility]) [address] [place] [address] HbA1c (Bld) [Mass fraction]o n 07-07-2024 Average glucose Estimated from glycated hemoglobin (Bld) [Mass/Vol] 180 mg/dL Normal Not Established [facility] Comment on above: Order Comment: Diagn osis of Diabetes-Adults Non-Diabetic: < or = 5.6% Increased risk for developing diabetes: 5.7-6.4% Diagnostic of diabetes: > or = 6.5% Performed By: #### 4 548-4 #### ALENA Paredes ([id number]) [facility] ([facility]) [id number] [place] [address] 47096 Hemoglobin A1c/Hemoglobin.to alcira 07-07-2024 HbA1c (Bld) [Mass fraction] 7.9 % High see below [facility] Comment on above: Order Comment: Diagn osis of Diabetes-Adults Non-Diabetic: < or = 5.6% Increased risk for developing diabetes: 5.7-6.4% Diagnostic of diabetes: > or = 6.5% Performed By: #### 4 548-4 #### ALENA Paredes ([id number]) [facility] ([facility]) [id number] [place] [address] 60277 Phosphateon 07-07-2024 Phosphate [Mass/Vol] 3.8 mg/dL Normal 2.5-4.9 [facility] Comment on above: Result Comment: The performance characteristics of phosphorus testing in heparinized plasma have been validated by the individual laboratory site where testing is performed. Testing on heparinized plasma is not approved by the FDA; however, such approval is not necessary. Performed By: #### 2 777-1 #### MAGGI PARNELL ([id number]) [facility] ([facility]) [address] [place] [address] 58368 Thyrotropinon 07-07-2024 TSH Qn 0.85 m[IU]/L Normal 0.44-3.98 [facility] Comment on above: Order Comment: TSH t esting is performed using different testing methodology at [facility] than at [facility]. Direct result comparisons should only be made within the same method. Performed By: #### 3 016-3 #### MAGGI PARNELL ([id number]) [facility] ([facility]) [address] [place] [address] 35121 Thyroxine.freeon 07-07-2024 Free T4 [Mass/Vol] 1.01 ng/dL Normal 0.61-1.12 [facility] Comment on above: Order Comment: Thyro xine Free testing is performed using different testing methodology at [facility] than at [facility]. Direct result comparisons should only be made [...] By: #### 3 024-7 #### MAGGI PARNELL ([id number]) [facility] ([facility]) [address] [place] [address] Urateon 07-07-2024 Urate [Mass/Vol] 5.7 mg/dL Normal 4.0-7.5 [facility] Comment on above: Result Comment: Hortencia puncture immediately after or during the administration of Metamizole may lead to falsely low results. Testing should be performed immediately prior to Metamizole dosing. Performed By: #### 3 084-1 #### MAGGI PARNELL ([id number]) [facility] ([facility]) [address] [place] [address] 41862 PT D/C Summary (1)on 05-17- 024 PT D/C Summary (1) Normal [facility] Inital Evaluation (1) - PTon 06-19-2024 Inital Evaluation (1) - PT Normal [facility] Albumin/Creatinineon 024 Albumin/Creatinine DL <= 20 mg/L (U) [Mass ratio] 221.6 ug/mg Creat High <30.0 [facility] Comment on above: Performed By: #### 1 4959-1 #### ALENA Paredes ([id number]) [facility] ([facility]) [address] [place] [address] 57197 Albumin/Creatinine DL <= 20 mg/L (U) [Mass ratio]on 02-07-2024 Albumin DL <= 20 mg/L (U) [Mass/Vol] 219.8 mg/L Normal Not established [facility] Comment on above: Performed By: #### 1 4959-1 #### ALENA Paredes ([id number]) [facility] ([facility]) [address] [place] [address] 53568 Creatinine (U) [Mass/Vol] 99.2 mg/dL Normal 20.0-370.0 [facility] Comment on above: Performed By: #### 1 4959-1 #### ALENA Paredes ([id number]) [facility] ([facility]) [address] [place] [address] 31241 Comprehensive metabolic 2000 panelon 02-07-2024 Albumin BCP dye [Mass/Vol] 4.0 g/dL Normal 3.4-5.0 [facility] Comment on above: Performed By: #### 2 4323-8 #### MAGGI PARNELL ([id number]) [facility] ([facility]) [address] [place] [address] 04471 ALP [Catalytic activity/Vol] 77 U/L Normal 33-136 [facility] Comment on above: Performed By: #### 2 4323-8 #### MAGGI PARNELL ([id number]) [facility] ([facility]) [address] [place] [address] 99151 ALT With P-5'-P [Catalytic activity/Vol] 7 U/L Low 10-52 [facility] Comment on above: Result Comment: Twila ents treated with Sulfasalazine may generate falsely decreased results for ALT. Performed By: #### 2 4323-8 #### MAGGI PARNELL ([id number]) [facility] ([facility]) [facility] [place] [address] Anion gap [Moles/Vol] 12 mmol/L Normal 10-20 [facility] Comment on above: Performed By: #### 2 4323-8 #### MAGGI PARNELL ([id number]) [facility] ([facility]) [address] [place] [address] 63261 AST With P-5'-P [Catalytic activity/Vol] 14 U/L Normal 9-39 [facility] Comment on above: Performed By: #### 2 432-8 #### MAGGI PARNELL ([id number]) [facility] ([facility]) [address] [place] [address] 55286 Bilirubin [Mass/Vol] 0.4 mg/dL Normal 0.0-1.2 [facility] Comment on above: Performed By: #### 2 432-8 #### MAGGI PARNELL ([id number]) [facility] ([facility]) [address] [place] [address] 93460 Calcium [Mass/Vol] 9.2 mg/dL Normal 8.6-10.3 [facility] Comment on above: Performed By: #### 2 432-8 #### MAGGI PARNELL ([id number]) [facility] ([facility]) [address] [place] [address] 42349 Chloride [Moles/Vol] 105 mmol/L Normal 98-107 [facility] Comment on above: Performed By: #### 2 4323-8 #### MAGGI PARNELL ([id number]) [facility] ([facility]) [address] [place] [address] 48945 CO2 [Moles/Vol] 29 mmol/L Normal 21-32 [facility] Comment on above: Performed By: #### 2 4323-8 #### MAGGI PARNELL ([id number]) [facility] ([facility]) [address] [place] [address] 60778 Creatinine [Mass/Vol] 1.92 mg/dL High 0.50-1.30 [facility] Comment on above: Performed By: #### 2 4323-8 #### MAGGI PARNELL ([id number]) [facility] ([facility]) [address] [place] [address] 94310 Glomerular filtration rate/1.73 sq M.predicted 35 mL/min/1.73m*2 Low >60 [facility] Comment on above: Result Comment: Calc ulations of estimated GFR are performed using the 2020 CKD-EPI Study Refit equation without the race variable for the IDMS-Traceable creatinine methods. https://jasn.asnjournals.org/content//ASN.20 90279398 Performed By: #### 2 432-8 #### MAGGI PARNELL ([id number]) [facility] ([facility]) [address] [place] [address] 20521 Glucose [Mass/Vol] 81 mg/dL Normal 74-99 [facility] Comment on above: Performed By: #### 2 432-8 #### MAGGI PARNELL ([id number]) [facility] ([facility]) [address] [place] [address] 83880 Potassium [Moles/Vol] 4.5 mmol/L Normal 3.5-5.3 [facility] Comment on above: Performed By: #### 2 432-8 #### MAGGI PARNELL ([id number]) [facility] ([facility]) [address] [place] [address] 92825 Protein [Mass/Vol] 6.4 g/dL Normal 6.4-8.2 [facility] Comment on above: Performed By: #### 2 4323-8 #### MAGGI PARNELL ([id number]) [facility] ([facility]) [address] [place] [address] 33964 Sodium [Moles/Vol] 141 mmol/L Normal 136-145 [facility] Comment on above: Performed By: #### 2 4323-8 #### MAGGI PARNELL ([id number]) [facility] ([facility]) [address] [place] [address] Urea nitrogen [Mass/Vol] 29 mg/dL High 6-23 [facility] Comment on above: Performed By: #### 2 4323-8 #### TAY PARMJIT ([id number]) [facility] ([facility]) [address] [place] [address] Basophil percentageOrdered B y: Ryley Jeter on 12-15-2023 Chloride [Moles/Vol] 109 mmol/L 98-107 [facility] Glucose [Mass/Vol] 126 mg/dL 74-106 [facility] Comment on above: Fasting Glucose resu lt greater than or equal to 126 mg/dL suggests DIABETES MELLITUS per A.D.A. criteria. Potassium [Moles/Vol] 4.1 mmol/L 3.5-5.1 [facility] Sodium [Moles/Vol] 140 mmol/L 136-145 [facility] - Chemistry and C hemistry - challengeOrdered By: Ryley Jeter on 12-15-2023 CO2 [Moles/Vol] 29.0 mmol/L 21.0-32.0 [facility] Urea nitrogen/Creatinine [Mass ratio] 14.9 mg/mg 10-20 [facility] No Panel InformationOrdered By: Ryley Jeter on 12-15-2023 Estimated GFR (MDRD) Amer 45 mL/min >60 [facility] Comment on above: GFR Calc Estimated GFR (MDRD) Non-Af Amer 37 mL/min >60 [facility] Comment on above: Non- GFR Calc Serum or plasma calcium nikkie urement (mass/volume)Ordered By: Ryley Jeter on 12-15-2023 Calcium [Mass/Vol] 9.4 mg/dL 8.5-10.1 [facility] Serum or plasma creatinine m easurement (mass/volume)Ordered By: Ryley Jeter on 12-15-2023 Creatinine [Mass/Vol] 1.88 mg/dL 0.70-1.30 [facility] Comment on above: The validity of the calculated GFR & GFRAA in patients over 70 years has not been determined. Clinical correlation is essential. Serum or plasma urea nitroge n measurement (mass/volume)Ordered By: Ryley Jeter on 12-15-2023 Urea nitrogen [Mass/Vol] 28 mg/dL 7-18 [facility] Thin prep Papanicolaou smear with manual screeningOrdered By: Ryley Jeter on 12-15-2023 Thin prep Papanicolaou smear with manual screening 2 5-15 [facility] APTTOrdered By: Burton lr on 12-01-2023 aPTT Coag (Bld) [Time] 35 s High [facility] Basic metabolic 2000 panelon 12-01-2023 Anion gap [Moles/Vol] 10 mmol/L 10 - 2 0 mmol/L [facility] Calcium [Mass/Vol] 8.9 mg/dL 8.4 - 10. 2 mg/dL [facility] Chloride [Moles/Vol] 105 mmol/L 98 - 10 8 mmol/L [facility] Creatinine [Mass/Vol] 1.76 mg/dL High 0.80 - 1.30 mg/dL [facility] GFR/1.73 sq M.predicted CKD-EPI (S/P/Bld) [Vol rate/Area] 39 Low - PINF [facility] Glucose [Mass/Vol] 82 mg/dL 65 - 99 mg/dL [facility] HCO3 [Moles/Vol] 30 mmol/L 21 - 32 mmol/L [facility] Interpretation and review of laboratory results Abnormal [facility] Potassium [Moles/Vol] 3.4 mmol/L Low 3.5 - 5.1 mmol/L [facility] Sodium [Moles/Vol] 142 mmol/L 135 - 145 mmol/L [facility] Urea nitrogen [Mass/Vol] 26 mg/dL High 8 - 25 mg/d L [facility] Urea nitrogen/Creatinine [Mass ratio] 14.8 mg/mg 10.0 - 20.0 [facility] CBC Auto Differentialon 11-03 Basophils (Bld) [#/Vol] 0.06 10*3/uL [facility] Basophils/100 WBC (Bld) 0.7 % [facility] Eosinophils (Bld) [#/Vol] 0.61 10*3/uL High [facility] Eosinophils/100 WBC (Bld) 7.4 % [facility] Erythrocyte distribution width (RBC) [Entitic vol] 13.3 % 11.6 - 14.8 % [facility] H[facility] (Bld) [Volume fraction] 36.6 % Low 41.0 - 53.0 % [facility] Hemoglobin (Bld) [Mass/Vol] 12.0 g/dL Low 13.5 - 17.5 g/dL [facility] Immature granulocytes (Bld) [#/Vol] 0.02 10*3/uL [facility] Immature granulocytes/100 WBC (Bld) 0.20 % [facility] Interpretation and review of laboratory results Abnormal [facility] Lymphocytes (Bld) [#/Vol] 1.32 10*3/uL [facility] Lymphocytes/100 WBC (Bld) 16.1 % [facility] MCH (RBC) [Entitic mass] 30.5 pg 26. 0 - 34.0 pg [facility] MCHC (RBC) [Mass/Vol] 32.8 g/dL 31.0 - 37.0 g/dL [facility] MCV (RBC) [Entitic vol] 92.9 fL 80.0 - 100.0 fL [facility] Monocytes (Bld) [#/Vol] 0.96 10*3/uL High [facility] Monocytes/100 WBC (Bld) 11.7 % [facility] Neutrophils (Bld) [#/Vol] 5.25 10*3/uL [facility] Neutrophils/100 WBC (Bld) 63.9 % [facility] Nucleated RBC (Bld) [#/Vol] 0.00 10*3/uL [facility] Nucleated RBC/100 WBC (Bld) [Ratio] 0.0 % [facility] Platelet mean volume (Bld) [Entitic vol] 12.4 fL 9.4 - 12.4 fL [facility] Platelets (Bld) [#/Vol] 115 10*3/uL Low [facility] RBC (Bld) [#/Vol] 3.94 10*6/uL [facility] WBC (Bld) [#/Vol] 8.22 10*3/uL [facility] Glucose (Bld) [Mass/Vol]on 0 12-01-2023 Glucose [Mass/Vol] 151 mg/dL High 65 - 99 mg/dL [facility] Interpretation and review of laboratory results Abnormal [facility] Glucose [Mass/Vol] 472 mg/dL Critically high 65 - 99 mg/d L [facility] Interpretation and review of laboratory results Abnormal [facility] Glucose [Mass/Vol] 454 mg/dL Critically high 65 - 99 mg/d L [facility] Interpretation and review of laboratory results Abnormal [facility] Glucose [Mass/Vol] 87 mg/dL 65 - 99 mg/dL [facility] Interpretation and review of laboratory results Normal [facility] Magnesium Levelon 12-01-2023 Magnesium [Mass/Vol] 2.1 mg/dL 1.6 - 2 .4 mg/dL [facility] Magnesium [Mass/Vol]on 12-01 Interpretation and review of laboratory results Normal [facility] aPTT Coag (Bld) [Time]Ordere d By: Burton Zendejas on 12-01-2023 Interpretation and review of laboratory results Abnormal [facility] APTTOrdered By: Zoila titus on 11-30-2023 aPTT Coag (Bld) [Time] 35 s High [facility] Basic metabolic 2000 panelon 11-30-2023 Anion gap [Moles/Vol] 9 mmol/L Low 10 - 2 0 mmol/L [facility] Calcium [Mass/Vol] 8.6 mg/dL 8.4 - 10. 2 mg/dL [facility] Chloride [Moles/Vol] 104 mmol/L 98 - 10 8 mmol/L [facility] Creatinine [Mass/Vol] 1.77 mg/dL High 0.80 - 1.30 mg/dL [facility] GFR/1.73 sq M.predicted CKD-EPI (S/P/Bld) [Vol rate/Area] 39 Low - PINF [facility] Glucose [Mass/Vol] 322 mg/dL High 65 - 99 mg/dL [facility] HCO3 [Moles/Vol] 29 mmol/L 21 - 32 mmol/L [facility] Interpretation and review of laboratory results Abnormal [facility] Potassium [Moles/Vol] 3.8 mmol/L 3.5 - 5.1 mmol/L [facility] Sodium [Moles/Vol] 138 mmol/L 135 - 145 mmol/L [facility] Urea nitrogen [Mass/Vol] 30 mg/dL High 8 - 25 mg/d L [facility] Urea nitrogen/Creatinine [Mass ratio] 16.9 mg/mg 10.0 - 20.0 [facility] CBC Auto Differentialon 11-03 Basophils (Bld) [#/Vol] 0.08 10*3/uL [facility] Basophils/100 WBC (Bld) 0.9 % [facility] Eosinophils (Bld) [#/Vol] 0.71 10*3/uL High [facility] Eosinophils/100 WBC (Bld) 8.0 % [facility] Erythrocyte distribution width (RBC) [Entitic vol] 13.5 % 11.6 - 14.8 % [facility] Hematocrit (Bld) [Volume fraction] 35.9 % Low 41.0 - 53.0 % [facility] Hemoglobin (Bld) [Mass/Vol] 11.8 g/dL Low 13.5 - 17.5 g/dL [facility] Immature granulocytes (Bld) [#/Vol] 0.03 10*3/uL [facility] Immature granulocytes/100 WBC (Bld) 0.30 % [facility] Interpretation and review of laboratory results Abnormal [facility] Lymphocytes (Bld) [#/Vol] 1.18 10*3/uL [facility] Lymphocytes/100 WBC (Bld) 13.3 % [facility] MCH (RBC) [Entitic mass] 30.5 pg 26. 0 - 34.0 pg [facility] MCHC (RBC) [Mass/Vol] 32.9 g/dL 31.0 - 37.0 g/dL [facility] MCV (RBC) [Entitic vol] 92.8 fL 80.0 - 100.0 fL [facility] Monocytes (Bld) [#/Vol] 0.84 10*3/uL [facility] Monocytes/100 WBC (Bld) 9.4 % [facility] Neutrophils (Bld) [#/Vol] 6.05 10*3/uL [facility] Neutrophils/100 WBC (Bld) 68.1 % [facility] Nucleated RBC (Bld) [#/Vol] 0.00 10*3/uL [facility] Nucleated RBC/100 WBC (Bld) [Ratio] 0.0 % [facility] Platelet mean volume (Bld) [Entitic vol] 12.1 fL 9.4 - 12.4 fL [facility] Platelets (Bld) [#/Vol] 120 10*3/uL Low [facility] RBC (Bld) [#/Vol] 3.87 10*6/uL [facility] WBC (Bld) [#/Vol] 8.89 10*3/uL [facility]on 01-30 -2024 GE RIS GE RIS [facility] CT Chest WO contrastOrdered By: Alice Kaminski on 11-30-2023 [facility] Work Phone: Echocardiogram completeon Aortic valve area 2.15969 cm [facility] AV mean gradient 3.00362 mmHg [facility] AV peak gradient 6.59104 mmHg [facility] EF 63.3016 % [facility] FUJI SYNAPSE CV [facility] Electrocardiogram, 12-leadon 11-30-2023 Atrial Rate 97 BPM [facility] P [place] 77 degrees [facility] P-R Interval 152 ms [facility] Q-T Interval 376 ms [facility] QRS Duration 76 ms [facility] QTC Calculation (Bezet) 477 ms O [facility] R [place] 72 degrees [facility] T [place] 51 degrees [facility] Ventricular Rate 97 BPM [facility] MUSE [facility] Glucose (Bld) [Mass/Vol]on 0 11-30-2023 Glucose [Mass/Vol] 190 mg/dL High 65 - 99 mg/dL [facility] Interpretation and review of laboratory results Abnormal [facility] Glucose [Mass/Vol] 103 mg/dL High 65 - 99 mg/dL [facility] Interpretation and review of laboratory results Abnormal [facility] Magnesium Levelon 11-30-2023 Magnesium [Mass/Vol] 2.2 mg/dL 1.6 - 2 .4 mg/dL [facility] Magnesium [Mass/Vol]on 11-30 Interpretation and review of laboratory results Normal [facility] No Panel Informationon 11-30 [facility] aPTT Coag (Bld) [Time]Ordere d By: Zoila Ruiz on 11-30-2023 Interpretation and review of laboratory results Abnormal [facility] APTTon 11-29-2023 aPTT Coag (Bld) [Time] 38 s High [facility] APTT Heparin Coverageon 11-02 aPTT Coag (Bld) [Time] 98 s High [facility] Interpretation and review of laboratory results Abnormal [facility] APTT Heparin CoverageOrdered By: Tania Escobedo on 11-29-2023 aPTT Coag (Bld) [Time] Critically high [facility] Interpretation and review of laboratory results Abnormal [facility] Bacteria identified Aer cx N om (Sput)Ordered By: Franco Armenta on 11-29-2023 Microscopic observation Gram stain Nom (Sput) Few WBC [facility] Microscopic observation Gram stain Nom (Sput) Few Epithelial Cells [facility] Microscopic observation Gram stain Nom (Sput) Positive [facility] Microscopic observation Gram stain Nom (Sput) Rare Mixed [facility] Basic metabolic 2000 panelon 11-29-2023 Anion gap [Moles/Vol] 7 mmol/L Low 10 - 2 0 mmol/L [facility] Calcium [Mass/Vol] 8.4 mg/dL 8.4 - 10. 2 mg/dL [facility] Chloride [Moles/Vol] 106 mmol/L 98 - 10 8 mmol/L [facility] Creatinine [Mass/Vol] 1.91 mg/dL High 0.80 - 1.30 mg/dL [facility] GFR/1.73 sq M.predicted CKD-EPI (S/P/Bld) [Vol rate/Area] 35 Low - PINF [facility] Glucose [Mass/Vol] 234 mg/dL High 65 - 99 mg/dL [facility] HCO3 [Moles/Vol] 28 mmol/L 21 - 32 mmol/L [facility] Interpretation and review of laboratory results Abnormal [facility] Potassium [Moles/Vol] 4.0 mmol/L 3.5 - 5.1 mmol/L [facility] Sodium [Moles/Vol] 137 mmol/L 135 - 145 mmol/L [facility] Urea nitrogen [Mass/Vol] 34 mg/dL High 8 - 25 mg/d L [facility] Urea nitrogen/Creatinine [Mass ratio] 17.8 mg/mg 10.0 - 20.0 [facility] CBC Auto Differentialon 11-02 Basophils (Bld) [#/Vol] 0.10 10*3/uL [facility] Basophils/100 WBC (Bld) 0.9 % [facility] Eosinophils (Bld) [#/Vol] 0.48 10*3/uL [facility] Eosinophils/100 WBC (Bld) 4.4 % [facility] Erythrocyte distribution width (RBC) [Entitic vol] 14.0 % 11.6 - 14.8 % [facility] Hematocrit (Bld) [Volume fraction] 32.8 % Low 41.0 - 53.0 % [facility] Hemoglobin (Bld) [Mass/Vol] 10.7 g/dL Low 13.5 - 17.5 g/dL [facility] Immature granulocytes (Bld) [#/Vol] 0.05 10*3/uL [facility] Immature granulocytes/100 WBC (Bld) 0.50 % [facility] Interpretation and review of laboratory results Abnormal [facility] Lymphocytes (Bld) [#/Vol] 1.92 10*3/uL [facility] Lymphocytes/100 WBC (Bld) 17.7 % [facility] MCH (RBC) [Entitic mass] 30.6 pg 26. 0 - 34.0 pg [facility] MCHC (RBC) [Mass/Vol] 32.6 g/dL 31.0 - 37.0 g/dL [facility] MCV (RBC) [Entitic vol] 93.7 fL 80.0 - 100.0 fL [facility] Monocytes (Bld) [#/Vol] 1.02 10*3/uL High [facility] Monocytes/100 WBC (Bld) 9.4 % [facility] Neutrophils (Bld) [#/Vol] 7.26 10*3/uL High [facility] Neutrophils/100 WBC (Bld) 67.1 % [facility] Nucleated RBC (Bld) [#/Vol] 0.00 10*3/uL [facility] Nucleated RBC/100 WBC (Bld) [Ratio] 0.0 % [facility] Platelet mean volume (Bld) [Entitic vol] 12.1 fL 9.4 - 12.4 fL [facility] Platelets (Bld) [#/Vol] 130 10*3/uL Low [facility] RBC (Bld) [#/Vol] 3.50 10*6/uL [facility] WBC (Bld) [#/Vol] 10.83 10*3/uL [facility] CT Chest WO contraston 11-29 Radiology Study observation (narrative) [facility] Glucose (Bld) [Mass/Vol]on 0 11-29-2023 Glucose [Mass/Vol] 174 mg/dL High 65 - 99 mg/dL [facility] Interpretation and review of laboratory results Abnormal [facility] Glucose [Mass/Vol] 266 mg/dL High 65 - 99 mg/dL [facility] Interpretation and review of laboratory results Abnormal [facility] HbA1c (Bld) [Mass fraction]O rdered By: Lidia Ruff on 11-29-2023 Average glucose Estimated from glycated hemoglobin (Bld) [Mass/Vol] 174 mg/dL High 68 - 114 mg/dL [facility] Interpretation and review of laboratory results Abnormal [facility] Hemoglobin [id number] By: Davina Ruff on 11-29-2023 HbA1c (Bld) [Mass fraction] 7.7 % High 4.0 - 5.6 % [facility] Magnesium Levelon 11-29-2023 Magnesium [Mass/Vol] 2.2 mg/dL 1.6 - 2 .4 mg/dL [facility] Magnesium [Mass/Vol]on 11-29 Interpretation and review of laboratory results Normal [facility] No Panel Informationon 11-29 [facility] Sputum Aerobic CultureOrdere d By: Franco Armenta on 11-29-2023 Bacteria identified Aer cx Nom (Sput) Normal [place]yler After 48 Hours [facility] aPTT Coag (Bld) [Time]on Interpretation and review of laboratory results Abnormal [facility] APTTon 11-28-2023 aPTT Coag (Bld) [Time] 102 s High [facility] Basic metabolic 2000 panelon 11-28-2023 Anion gap [Moles/Vol] 13 mmol/L 10 - 2 0 mmol/L [facility] Calcium [Mass/Vol] 9.0 mg/dL 8.4 - 10. 2 mg/dL [facility] Chloride [Moles/Vol] 110 mmol/L High 98 - 10 8 mmol/L [facility] Creatinine [Mass/Vol] 1.99 mg/dL High 0.80 - 1.30 mg/dL [facility] GFR/1.73 sq M.predicted CKD-EPI (S/P/Bld) [Vol rate/Area] 34 Low - PINF [facility] Glucose [Mass/Vol] 183 mg/dL High 65 - 99 mg/dL [facility] HCO3 [Moles/Vol] 23 mmol/L 21 - 32 mmol/L [facility] Interpretation and review of laboratory results Abnormal [facility] Potassium [Moles/Vol] 4.3 mmol/L 3.5 - 5.1 mmol/L [facility] Sodium [Moles/Vol] 142 mmol/L 135 - 145 mmol/L [facility] Urea nitrogen [Mass/Vol] 33 mg/dL High 8 - 25 mg/d L [facility] Urea nitrogen/Creatinine [Mass ratio] 16.6 mg/mg 10.0 - 20.0 [facility] Anion gap [Moles/Vol] 9 mmol/L Low 10 - 2 0 mmol/L [facility] Calcium [Mass/Vol] 8.8 mg/dL 8.4 - 10. 2 mg/dL [facility] Chloride [Moles/Vol] 111 mmol/L High 98 - 10 8 mmol/L [facility] Creatinine [Mass/Vol] 2.03 mg/dL High 0.80 - 1.30 mg/dL [facility] GFR/1.73 sq M.predicted CKD-EPI (S/P/Bld) [Vol rate/Area] 33 Low - PINF [facility] Glucose [Mass/Vol] 160 mg/dL High 65 - 99 mg/dL [facility] [place] HCO3 [Moles/Vol] 27 mmol/L 21 - 32 mmol/L [facility] Interpretation and review of laboratory results Abnormal [facility] Potassium [Moles/Vol] 4.3 mmol/L 3.5 - 5.1 mmol/L [facility] Sodium [Moles/Vol] 143 mmol/L 135 - 145 mmol/L [facility] Urea nitrogen [Mass/Vol] 34 mg/dL High 8 - 25 mg/d L [facility] Urea nitrogen/Creatinine [Mass ratio] 16.7 mg/mg 10.0 - 20.0 [facility] Anion gap [Moles/Vol] 10 mmol/L 10 - 2 0 mmol/L [facility] Calcium [Mass/Vol] 8.7 mg/dL 8.4 - 10. 2 mg/dL [facility] Chloride [Moles/Vol] 112 mmol/L High 98 - 10 8 mmol/L [facility] Creatinine [Mass/Vol] 2.03 mg/dL High 0.80 - 1.30 mg/dL [facility] GFR/1.73 sq M.predicted CKD-EPI (S/P/Bld) [Vol rate/Area] 33 Low - PINF [facility] Glucose [Mass/Vol] 119 mg/dL High 65 - 99 mg/dL [facility] HCO3 [Moles/Vol] 24 mmol/L 21 - 32 mmol/L [facility] Interpretation and review of laboratory results Abnormal [facility] Potassium [Moles/Vol] 3.9 mmol/L 3.5 - 5.1 mmol/L [facility] Sodium [Moles/Vol] 142 mmol/L 135 - 145 mmol/L [facility] Urea nitrogen [Mass/Vol] 35 mg/dL High 8 - 25 mg/d L [facility] Urea nitrogen/Creatinine [Mass ratio] 17.2 mg/mg 10.0 - 20.0 [facility] Beta hydroxybutyrate [Moles/ Vol]on 11-28-2023 Interpretation and review of laboratory results Abnormal [facility] Interpretation and review of laboratory results Abnormal [facility] Beta-Hydroxybutyrateon 11-28 Beta hydroxybutyrate [Moles/Vol] 0.8 mmol/L High 0.0 - 0.3 mmol/L [facility] Beta hydroxybutyrate [Moles/Vol] 0.4 mmol/L High 0.0 - 0.3 mmol/L [facility] Beta hydroxybutyrate [Moles/Vol] 0.6 mmol/L High 0.0 - 0.3 mmol/L [facility] CBC Auto Differentialon 11-02 Basophils (Bld) [#/Vol] 0.07 10*3/uL [facility] Basophils/100 WBC (Bld) 0.5 % [facility] Eosinophils (Bld) [#/Vol] 0.09 10*3/uL [facility] Eosinophils/100 WBC (Bld) 0.6 % [facility] Erythrocyte distribution width (RBC) [Entitic vol] 14.3 % 11.6 - 14.8 % [facility] Hematocrit (Bld) [Volume fraction] 33.6 % Low 41.0 - 53.0 % [facility] Hemoglobin (Bld) [Mass/Vol] 10.8 g/dL Low 13.5 - 17.5 g/dL [facility] Immature granulocytes (Bld) [#/Vol] 0.05 10*3/uL [facility] Immature granulocytes/100 WBC (Bld) 0.40 % [facility] Interpretation and review of laboratory results Abnormal [facility] Lymphocytes (Bld) [#/Vol] 2.69 10*3/uL [facility] Lymphocytes/100 WBC (Bld) 18.9 % [facility] MCH (RBC) [Entitic mass] 30.4 pg 26. 0 - 34.0 pg [facility] MCHC (RBC) [Mass/Vol] 32.1 g/dL 31.0 - 37.0 g/dL [facility] MCV (RBC) [Entitic vol] 94.6 fL 80.0 - 100.0 fL [facility] Monocytes (Bld) [#/Vol] 1.26 10*3/uL High [facility] Monocytes/100 WBC (Bld) 8.9 % [facility] Neutrophils (Bld) [#/Vol] 10.06 10*3/uL High [facility] Neutrophils/100 WBC (Bld) 70.7 % [facility] Nucleated RBC (Bld) [#/Vol] 0.00 10*3/uL [facility] Nucleated RBC/100 WBC (Bld) [Ratio] 0.0 % [facility] Platelet mean volume (Bld) [Entitic vol] 11.9 fL 9.4 - 12.4 fL [facility] Platelets (Bld) [#/Vol] 151 10*3/uL [facility] RBC (Bld) [#/Vol] 3.55 10*6/uL [facility] WBC (Bld) [#/Vol] 14.22 10*3/uL [facility] CRP [Mass/Vol]on 11-28-2023 Interpretation and review of laboratory results Abnormal [facility] CRP, Inflammationon 11-28-19 CRP [Mass/Vol] 11.6 mg/L [facility] - 10.[facility] mg/L [facility] D-Dimer, Quantitativeon 11-02 Fibrin D-dimer FEU (PPP) [Mass/Vol] 1.32 High [facility] Interpretation and review of laboratory results Abnormal [facility] Glucose (Bld) [Mass/Vol]on 0 11-28-2023 Glucose [Mass/Vol] 222 mg/dL High 65 - 99 mg/dL [facility] Interpretation and review of laboratory results Abnormal [facility] Glucose [Mass/Vol] 182 mg/dL High 65 - 99 mg/dL [facility] Interpretation and review of laboratory results Abnormal [facility] Glucose [Mass/Vol] 286 mg/dL High 65 - 99 mg/dL [facility] Interpretation and review of laboratory results Abnormal [facility] Glucose [Mass/Vol] 209 mg/dL High 65 - 99 mg/dL [facility] Interpretation and review of laboratory results Abnormal [facility] Glucose [Mass/Vol] 167 mg/dL High 65 - 99 mg/dL [facility] Interpretation and review of laboratory results Abnormal [facility] LDHon 11-28-2023 LDH Lactate to pyruvate reaction [Catalytic activity/Vol] 299 U/L High 100 - 250 U/L [facility] Magnesium Levelon 11-28-2023 Magnesium [Mass/Vol] 2.5 mg/dL High 1.6 - 2 .4 mg/dL [facility] Magnesium [Mass/Vol] 2.6 mg/dL High 1.6 - 2 .4 mg/dL [facility] Magnesium [Mass/Vol] 2.2 mg/dL 1.6 - 2 .4 mg/dL [facility] Magnesium [Mass/Vol]on 11-28 Interpretation and review of laboratory results Abnormal [facility] Interpretation and review of laboratory results Abnormal [facility] Interpretation and review of laboratory results Normal [facility] No Panel Informationon 11-28 Interpretation and review of laboratory results Abnormal [facility] Phosphate [Mass/Vol]on 11-28 Interpretation and review of laboratory results Normal [facility] Interpretation and review of laboratory results Abnormal [facility] Interpretation and review of laboratory results Abnormal [facility] Phosphoruson 11-28-2023 Phosphate [Mass/Vol] 3.6 mg/dL 2.3 - 3 .7 mg/dL [facility] Phosphate [Mass/Vol] 3.8 mg/dL High 2.3 - 3 .7 mg/dL [facility] Phosphate [Mass/Vol] 3.8 mg/dL High 2.3 - 3 .7 mg/dL [facility] aPTT Coag (Bld) [Time]on Interpretation and review of laboratory results Abnormal [facility] APTTOrdered By: Becky Mercado on 11-27-2023 aPTT Coag (Bld) [Time] 78 s High [facility] APTTOrdered By: Anjali Hartmann on 11-27-2023 aPTT Coag (Bld) [Time] 66 s High [facility] APTT Heparin CoverageOrdered By: Yesenia Cardona on 11-27-2023 aPTT Coag (Bld) [Time] 87 s High [facility] Interpretation and review of laboratory results Abnormal [facility] Basic metabolic 2000 panelon 11-27-2023 Anion gap [Moles/Vol] 9 mmol/L Low 10 - 2 0 mmol/L [facility] Calcium [Mass/Vol] 8.7 mg/dL 8.4 - 10. 2 mg/dL [facility] Chloride [Moles/Vol] 113 mmol/L High 98 - 10 8 mmol/L [facility] Creatinine [Mass/Vol] 2.24 mg/dL High 0.80 - 1.30 mg/dL [facility] GFR/1.73 sq M.predicted CKD-EPI (S/P/Bld) [Vol rate/Area] 29 Low - PINF [facility] Glucose [Mass/Vol] 168 mg/dL High 65 - 99 mg/dL [facility] HCO3 [Moles/Vol] 25 mmol/L 21 - 32 mmol/L [facility] Interpretation and review of laboratory results Abnormal [facility] Potassium [Moles/Vol] 3.7 mmol/L 3.5 - 5.1 mmol/L [facility] Sodium [Moles/Vol] 143 mmol/L 135 - 145 mmol/L [facility] Urea nitrogen [Mass/Vol] 37 mg/dL High 8 - 25 mg/d L [facility] Urea nitrogen/Creatinine [Mass ratio] 16.5 mg/mg 10.0 - 20.0 [facility] Anion gap [Moles/Vol] 9 mmol/L Low 10 - 2 0 mmol/L [facility] Calcium [Mass/Vol] 9.0 mg/dL 8.4 - 10. 2 mg/dL [facility] Chloride [Moles/Vol] 113 mmol/L High 98 - 10 8 mmol/L [facility] Creatinine [Mass/Vol] 2.24 mg/dL High 0.80 - 1.30 mg/dL [facility] GFR/1.73 sq M.predicted CKD-EPI (S/P/Bld) [Vol rate/Area] 29 Low - PINF [facility] Glucose [Mass/Vol] 153 mg/dL High 65 - 99 mg/dL [facility] HCO3 [Moles/Vol] 24 mmol/L 21 - 32 mmol/L [facility] Interpretation and review of laboratory results Abnormal [facility] Potassium [Moles/Vol] 4.0 mmol/L 3.5 - 5.1 mmol/L [facility] Sodium [Moles/Vol] 142 mmol/L 135 - 145 mmol/L [facility] Urea nitrogen [Mass/Vol] 39 mg/dL High 8 - 25 mg/d L [facility] Urea nitrogen/Creatinine [Mass ratio] 17.4 mg/mg 10.0 - 20.0 [facility] Anion gap [Moles/Vol] 13 mmol/L 10 - 2 0 mmol/L [facility] Calcium [Mass/Vol] 9.3 mg/dL 8.4 - 10. 2 mg/dL [facility] Chloride [Moles/Vol] 112 mmol/L High 98 - 10 8 mmol/L [facility] Creatinine [Mass/Vol] 2.26 mg/dL High 0.80 - 1.30 mg/dL [facility] GFR/1.73 sq M.predicted CKD-EPI (S/P/Bld) [Vol rate/Area] 29 Low - PINF [facility] Glucose [Mass/Vol] 114 mg/dL High 65 - 99 mg/dL [facility] HCO3 [Moles/Vol] 23 mmol/L 21 - 32 mmol/L [facility] Interpretation and review of laboratory results Abnormal [facility] Potassium [Moles/Vol] 3.7 mmol/L 3.5 - 5.1 mmol/L [facility] Sodium [Moles/Vol] 144 mmol/L 135 - 145 mmol/L [facility] Urea nitrogen [Mass/Vol] 42 mg/dL High 8 - 25 mg/d L [facility] Urea nitrogen/Creatinine [Mass ratio] 18.6 mg/mg 10.0 - 20.0 [facility] Anion gap [Moles/Vol] 13 mmol/L 10 - 2 0 mmol/L [facility] Calcium [Mass/Vol] 9.2 mg/dL 8.4 - 10. 2 mg/dL [facility] Chloride [Moles/Vol] 111 mmol/L High 98 - 10 8 mmol/L [facility] Creatinine [Mass/Vol] 2.35 mg/dL High 0.80 - 1.30 mg/dL [facility] GFR/1.73 sq M.predicted CKD-EPI (S/P/Bld) [Vol rate/Area] 27 Low - PINF [facility] Glucose [Mass/Vol] 340 mg/dL High 65 - 99 mg/dL [facility] HCO3 [Moles/Vol] 21 mmol/L 21 - 32 mmol/L [facility] Interpretation and review of laboratory results Abnormal [facility] Potassium [Moles/Vol] 3.4 mmol/L Low 3.5 - 5.1 mmol/L [facility] Sodium [Moles/Vol] 142 mmol/L 135 - 145 mmol/L [facility] Urea nitrogen [Mass/Vol] 42 mg/dL High 8 - 25 mg/d L [facility] Urea nitrogen/Creatinine [Mass ratio] 17.9 mg/mg 10.0 - 20.0 [facility] Basic metabolic 2000 panelOr dered By: Moody Hughes on 11-27-2023 Anion gap [Moles/Vol] 13 mmol/L 10 - 2 0 mmol/L [facility] Calcium [Mass/Vol] 8.9 mg/dL 8.4 - 10. 2 mg/dL [facility] Chloride [Moles/Vol] 107 mmol/L 98 - 10 8 mmol/L [facility] Creatinine [Mass/Vol] 2.24 mg/dL High 0.80 - 1.30 mg/dL [facility] GFR/1.73 sq M.predicted CKD-EPI (S/P/Bld) [Vol rate/Area] 29 Low - PINF [facility] Glucose [Mass/Vol] 523 mg/dL Critically high 65 - 99 mg/d L [facility] HCO3 [Moles/Vol] 21 mmol/L 21 - 32 mmol/L [facility] Interpretation and review of laboratory results Abnormal [facility] Potassium [Moles/Vol] 4.6 mmol/L 3.5 - 5.1 mmol/L [facility] Sodium [Moles/Vol] 136 mmol/L 135 - 145 mmol/L [facility] Urea nitrogen [Mass/Vol] 42 mg/dL High 8 - 25 mg/d L [facility] Urea nitrogen/Creatinine [Mass ratio] 18.8 mg/mg 10.0 - 20.0 [facility] Beta hydroxybutyrate [Moles/ Vol]on 11-27-2023 Interpretation and review of laboratory results Normal [facility] Interpretation and review of laboratory results Normal [facility] Interpretation and review of laboratory results Normal [facility] Interpretation and review of laboratory results Normal [facility] Beta-Hydroxybutyrateon 11-27 Beta hydroxybutyrate [Moles/Vol] mmol/L 0.0 - 0.3 mmol/L [facility] Beta hydroxybutyrate [Moles/Vol] 0.2 mmol/L 0.0 - 0.3 mmol/L [facility] Beta hydroxybutyrate [Moles/Vol] mmol/L 0.0 - 0.3 mmol/L [facility] Beta hydroxybutyrate [Moles/Vol] 0.2 mmol/L 0.0 - 0.3 mmol/L [facility] Beta hydroxybutyrate [Moles/Vol] 1.9 mmol/L High 0.0 - 0.3 mmol/L [facility] CBC Auto Differentialon 11-02 Basophils (Bld) [#/Vol] 0.04 10*3/uL [facility] Basophils/100 WBC (Bld) 0.2 % [facility] Eosinophils (Bld) [#/Vol] 0.00 10*3/uL [facility] Eosinophils/100 WBC (Bld) 0.0 % [facility] Erythrocyte distribution width (RBC) [Entitic vol] 14.0 % 11.6 - 14.8 % [facility] Hematocrit (Bld) [Volume fraction] 34.0 % Low 41.0 - 53.0 % [facility] Hemoglobin (Bld) [Mass/Vol] 11.1 g/dL Low 13.5 - 17.5 g/dL [facility] Immature granulocytes (Bld) [#/Vol] 0.11 10*3/uL [facility] Immature granulocytes/100 WBC (Bld) 0.50 % [facility] Interpretation and review of laboratory results Abnormal [facility] Lymphocytes (Bld) [#/Vol] 0.91 10*3/uL [facility] Lymphocytes/100 WBC (Bld) 3.8 % [facility] MCH (RBC) [Entitic mass] 30.9 pg 26. 0 - 34.0 pg [facility] MCHC (RBC) [Mass/Vol] 32.6 g/dL 31.0 - 37.0 g/dL [facility] MCV (RBC) [Entitic vol] 94.7 fL 80.0 - 100.0 fL [facility] Monocytes (Bld) [#/Vol] 1.21 10*3/uL High [facility] Monocytes/100 WBC (Bld) 5.1 % [facility] Neutrophils (Bld) [#/Vol] 21.42 10*3/uL High [facility] Neutrophils/100 WBC (Bld) 90.4 % [facility] Nucleated RBC (Bld) [#/Vol] 0.00 10*3/uL [facility] Nucleated RBC/100 WBC (Bld) [Ratio] 0.0 % [facility] Platelet mean volume (Bld) [Entitic vol] 11.9 fL 9.4 - 12.4 fL [facility] Platelets (Bld) [#/Vol] 220 10*3/uL [facility] RBC (Bld) [#/Vol] 3.59 10*6/uL [facility] WBC (Bld) [#/Vol] 23.69 10*3/uL High [facility] CRP [Mass/Vol]on 11-27-2023 Interpretation and review of laboratory results Normal [facility] CRP, Inflammationon 11-27-19 CRP [Mass/Vol] mg/L NINF - 10.0 mg/L [facility] Clostridium difficile Testin gOrdered By: Nina Martinez on 11-27-2023 C. difficile Interpretation Negative [facility] Specimen Acceptability Acceptable [facility] ESR Westergren method (Bld) [Velocity]on 11-27-2023 ESR (Bld) [Velocity] 21 mm/h High [facility] Interpretation and review of laboratory results Abnormal [facility] Glucose (Bld) [Mass/Vol]on 0 11-27-2023 Glucose [Mass/Vol] 85 mg/dL 65 - 99 mg/dL [facility] Interpretation and review of laboratory results Normal [facility] Glucose [Mass/Vol] 106 mg/dL High 65 - 99 mg/[facility] Interpretation and review of laboratory results Abnormal [facility] Glucose [Mass/Vol] 179 mg/dL High 65 - 99 mg/dL [facility] Interpretation and review of laboratory results Abnormal [facility] Glucose [Mass/Vol] 255 mg/dL High 65 - 99 mg/dL [facility] Interpretation and review of laboratory results Abnormal [facility] Glucose [Mass/Vol] 252 mg/dL High 65 - 99 mg/dL [facility] Interpretation and review of laboratory results Abnormal [facility] Glucose [Mass/Vol] 145 mg/dL High 65 - 99 mg/dL [facility] Interpretation and review of laboratory results Abnormal [facility] Glucose [Mass/Vol] 155 mg/dL High 65 - 99 mg/dL [facility] Interpretation and review of laboratory results Abnormal [facility] Glucose [Mass/Vol] 155 mg/dL High 65 - 99 mg/dL [facility] Interpretation and review of laboratory results Abnormal [facility] Glucose [Mass/Vol] 143 mg/dL High 65 - 99 mg/dL [facility] Interpretation and review of laboratory results Abnormal [facility] Glucose [Mass/Vol] 123 mg/dL High 65 - 99 mg/dL [facility] Interpretation and review of laboratory results Abnormal [facility] Glucose [Mass/Vol] 132 mg/dL High 65 - 99 mg/dL [facility] Interpretation and review of laboratory results Abnormal [facility] Glucose [Mass/Vol] 202 mg/dL High 65 - 99 mg/dL [facility] Interpretation and review of laboratory results Abnormal [facility] Glucose [Mass/Vol] 318 mg/dL High 65 - 99 mg/dL [facility] Interpretation and review of laboratory results Abnormal [facility] Glucose [Mass/Vol] 365 mg/dL High 65 - 99 mg/dL [facility] Interpretation and review of laboratory results Abnormal [facility] Glucose [Mass/Vol] 453 mg/dL Critically high 65 - 99 mg/d L [facility] Interpretation and review of laboratory results Abnormal [facility] Glucose [Mass/Vol] mg/dL Critically high 65 - 99 mg/d L [facility] Interpretation and review of laboratory results Abnormal [facility] Glucose [Mass/Vol] mg/dL Critically high 65 - 99 mg/d L [facility] Interpretation and review of laboratory results Abnormal [facility] Glucose [Mass/Vol] 498 mg/dL Critically high 65 - 99 mg/d L [facility] Interpretation and review of laboratory results Abnormal [facility] Green Topon 11-27-2023 Extra Tube Hold for add-ons. [facility] Comment on above: Auto resulted. [facility] HbA1c (Bld) [Mass fraction]O rdered By: Brent Carrillo on 11-27-2023 Average glucose Estimated from glycated hemoglobin (Bld) [Mass/Vol] 169 mg/dL High 68 - 114 mg/dL [facility] Interpretation and review of laboratory results Abnormal [facility] Hemoglobin [id number] By: Damaris Carrillo on 11-27-2023 HbA1c (Bld) [Mass fraction] 7.5 % High 4.0 - 5.6 % [facility] Hepatic function 2000 panelo n 11-27-2023 Albumin [Mass/Vol] 3.4 g/dL 3.2 - 5.2 g/dL [facility] ALP [Catalytic activity/Vol] 97 U/L 40 - 150 U/L [facility] ALT [Catalytic activity/Vol] 47 U/L 14 - 65 U/L [facility] AST [Catalytic activity/Vol] 74 U/L High 0-50 U/L [facility] Bilirubin [Mass/Vol] 0.7 mg/dL 0.0 - 1 .3 mg/dL [facility] Bilirubin.conjugated [Mass/Vol] 0.2 mg/dL 0.0 - 0.4 mg/dL [facility] Protein [Mass/Vol] 6.3 g/dL 6.0 - 8.0 g/dL [facility] Influenza virus A and B RNA and SARS-CoV-2 (COVID-19) N gene panel ALICE+probe (Resp)Ordered By: Esthela Albright on 11-27-2023 FLUAV RNA ALICE+probe Ql (Unsp spec) Not detected Not Detected [facility] FLUBV RNA ALICE+probe Ql (Unsp spec) Not detected Not Detected [facility] Interpretation and review of laboratory results Abnormal [facility] SARS-CoV-2 (COVID-19) RNA ALICE+probe Ql (Resp) Detected Abnormal Not Detected [facility] Lactate [Moles/Vol]on 2023 Interpretation and review of laboratory results Abnormal [facility] Interpretation and review of laboratory results Normal [facility] Lactic Acid, Plasmaon 2023 Lactate [Moles/Vol] 2.8 mmol/L High 0.6 - 2. 0 mmol/L [facility] Lactate [Moles/Vol] 2.0 mmol/L 0.6 - 2. 0 mmol/L [facility] Legionella Antigen, Urineon 11-27-2023 Interpretation and review of laboratory results Normal [facility] L. pneumophila Ag Ql (U) Negative Neg ative for Legionella antigen [facility] [facility] 1996 panelon Cholesterol [Mass/Vol] 130 mg/dL 100 - 199 mg/dL [facility] Cholesterol in HDL [Mass/Vol] 56 mg/dL 40 - 59 mg/dL [facility] Cholesterol in LDL [Mass/Vol] 61 mg/dL 10 - 130 mg/dL [facility] Cholesterol non HDL [Mass/Vol] 74 mg/dL [facility] Cholesterol.total/Cholest santos in HDL [Mass ratio] 2.3 {ratio} ratio [facility] Triglyceride [Mass/Vol] 67 mg/dL 30 - 150 mg/dL [facility] MRSA DNA Amplified Probeon 0 11-27-2023 MRSA DNA ALICE+probe Ql (Unsp spec) Negative Not Detected, MRSA NEGATIVE [facility] MRSA DNA ALICE+probe Ql (Unsp spec)on 11-27-2023 Interpretation and review of laboratory results Normal [facility] Magnesium Levelon 11-27-2023 Magnesium [Mass/Vol] 1.9 mg/dL 1.6 - 2 .4 mg/dL [facility] Magnesium [Mass/Vol] 2.2 mg/dL 1.6 - 2 .4 mg/dL [facility] Magnesium [Mass/Vol] 2.1 mg/dL 1.6 - 2 .4 mg/dL [facility] Magnesium [Mass/Vol] 2.1 mg/dL 1.6 - 2 .4 mg/dL [facility] Magnesium [Mass/Vol] 2.2 mg/dL 1.6 - 2 .4 mg/dL [facility] Magnesium [Mass/Vol]on 11-27 Interpretation and review of laboratory results Normal [facility] Interpretation and review of laboratory results Normal [facility] Interpretation and review of laboratory results Normal [facility] Interpretation and review of laboratory results Normal [facility] Interpretation and review of laboratory results Normal [facility] NT Pro BNPon 11-27-2023 Natriuretic peptide.B prohormone N-Terminal [Mass/Vol] 04622 pg/mL High 0 - 300 pg/mL [facility] Natriuretic peptide.B prohor katja N-Terminal [Mass/Vol]on 11-27-2023 Interpretation and review of laboratory results Abnormal [facility] No Panel Informationon 11-27 [facility] Interpretation and review of laboratory results Abnormal [facility] Obtain venous blood gases an d performon 11-27-2023 [facility] POC Arterial Blood Gas Panel -Pulmon 11-27-2023 Alveolar-arterial oxygen Partial pressure difference 85.4 mm Hg [facility] Base excess Calc (Bld) [Moles/Vol] -7.1000 mmol/L Low -2.0 - 2.0 [facility] Calcium.ionized [Mass/Vol] 4.7 mg/dL 4.5 - 5.3 mg/dL [facility] Carboxyhemoglobin (BldA) [Mass fraction] 1.3 NINF [facility] Chloride [Moles/Vol] 107 mmol/L 98 - 10 8 mmol/L [facility] CO2 (Bld) [Partial pressure] 31.7 mm[Hg] Low [facility] Glucose post fast [Mass/Vol] 543 mg/dL Critically high 65 - 99 mg/dL [facility] HCO3 (Bld) [Moles/Vol] 17.5 mmol/L Low 22.0 - 26.0 mmol/L [facility] Hematocrit (BldA) [Volume fraction] 37.9 % Low 41.0 - 53.0 % [facility] Hemoglobin (Bld) [Mass/Vol] 12.4 g/dL Low 13.5 - 17.5 g/dL [facility] Inhaled oxygen concentration 30 % [facility] Interpretation and review of laboratory results Abnormal [facility] Lactate [Moles/Vol] 1.7 mmol/L 0.6 - 2. 0 mmol/L [facility] Methemoglobin (BldA) [Mass fraction] % 0.0 - 2.0 % [facility] Oxygen (Bld) [Partial pressure] 84 mm[Hg] [facility] Oxyhemoglobin (BldA) [Mass fraction] 94.5 % 94.0 - 98.0 % [facility] pH (Bld) 7.35 [pH] 7.35 - 7.45 [facility] Potassium [Moles/Vol] 4.6 mmol/L 3.5 - 5.1 mmol/L [facility] Sodium [Moles/Vol] 138 mmol/L 135 - 145 mmol/L [facility] Specimen source Nom (Unsp spec) Radial, right [facility] POC Venous Blood Gas Panel-P ulmon 11-27-2023 Base excess Calc (BldV) [Moles/Vol] -8.4000 mmol/L Low -2.0 - 2.0 [facility] Calcium.ionized [Mass/Vol] 4.4 mg/dL Low 4.5 - 5.3 mg/dL [facility] Carboxyhemoglobin (BldA) [Mass fraction] 2.9 High [facility] Chloride [Moles/Vol] 108 mmol/L 98 - 10 8 mmol/L [facility] CO2 (BldV) [Partial pressure] 26.6 mm[Hg] Low [facility] Glucose post fast [Mass/Vol] 544 mg/dL Critically high 65 - 99 mg/dL [facility] HCO3 (Bld) [Moles/Vol] 15.4 mmol/L Low 24.0 - 28.0 mmol/L [facility] Hematocrit (BldA) [Volume fraction] 36.5 % Low 41.0 - 53.0 % [facility] Hemoglobin (Bld) [Mass/Vol] 11.9 g/dL Low 13.5 - 17.5 g/dL [facility] Inhaled oxygen concentration 30 % [facility] Interpretation and review of laboratory results Abnormal [facility] Lactate [Moles/Vol] 2.5 mmol/L High 0.6 - 2. 0 mmol/L [facility] Methemoglobin (BldA) [Mass fraction] % 0.0 - 2.0 % [facility] Oxygen (BldV) [Partial pressure] 140 mm[Hg] High [facility] Oxygen saturation in Venous blood 99.4 % High 40.0 - 70.0 % [facility] Oxyhemoglobin (BldA) [Mass fraction] 96.3 % No established reference range [facility] pH (BldV) 7.37 [pH] 7.32 - 7.42 [facility] Potassium [Moles/Vol] 4.0 mmol/L 3.5 - 5.1 mmol/L [facility] Sodium [Moles/Vol] 138 mmol/L 135 - 145 mmol/L [facility] Specimen source Nom (Unsp spec) Not specified [facility] Base excess Calc (BldV) [Moles/Vol] -5.8000 mmol/L Low -2.0 - 2.0 [facility] Calcium.ionized [Mass/Vol] 4.7 mg/dL 4.5 - 5.3 mg/dL [facility] Carboxyhemoglobin (BldA) [Mass fraction] 2.9 High [facility] Chloride [Moles/Vol] 107 mmol/L 98 - 10 8 mmol/L [facility] CO2 (BldV) [Partial pressure] 34.1 mm[Hg] Low [facility] Glucose post fast [Mass/Vol] 493 mg/dL Critically high 65 - 99 mg/dL [facility] HCO3 (Bld) [Moles/Vol] 19.0 mmol/L Low 24.0 - 28.0 mmol/L [facility] Hematocrit (BldA) [Volume fraction] 35.4 % Low 41.0 - 53.0 % [facility] Hemoglobin (Bld) [Mass/Vol] 11.5 g/dL Low 13.5 - 17.5 g/dL [facility] Inhaled oxygen concentration 28 % [facility] Inhaled oxygen flow rate 2 L/min [facility] Interpretation and review of laboratory results Abnormal [facility] Lactate [Moles/Vol] 1.8 mmol/L 0.6 - 2. 0 mmol/L [facility] Methemoglobin (BldA) [Mass fraction] % 0.0 - 2.0 % [facility] Oxygen (BldV) [Partial pressure] 63 mm[Hg] High [facility] Oxygen saturation in Venous blood 91.7 % High 40.0 - 70.0 % [facility] Oxyhemoglobin (BldA) [Mass fraction] 88.7 % No established reference range [facility] pH (BldV) 7.36 [pH] 7.32 - 7.42 [facility] Potassium [Moles/Vol] 4.7 mmol/L 3.5 - 5.1 mmol/L [facility] Sodium [Moles/Vol] 138 mmol/L 135 - 145 mmol/L [facility] Specimen source Nom (Unsp spec) Not specified [facility] Phosphate [Mass/Vol]on 11-27 Interpretation and review of laboratory results Normal [facility] Interpretation and review of laboratory results Abnormal [facility] Interpretation and review of laboratory results Normal [facility] Interpretation and review of laboratory results Normal [facility] Interpretation and review of laboratory results Abnormal [facility] Phosphoruson 11-27-2023 Phosphate [Mass/Vol] 2.6 mg/dL 2.3 - 3 .7 mg/dL [facility] Phosphate [Mass/Vol] 4.1 mg/dL High 2.3 - 3 .7 mg/dL [facility] Phosphate [Mass/Vol] 3.0 mg/dL 2.3 - 3 .7 mg/dL [facility] Phosphate [Mass/Vol] 2.3 mg/dL 2.3 - 3 .7 mg/dL [facility] Phosphate [Mass/Vol] 4.1 mg/dL High 2.3 - 3 .7 mg/dL [facility] Reflex Lactic Acid, Plasmaon 11-27-2023 Interpretation and review of laboratory results Normal [facility] Lactate [Moles/Vol] 2.0 mmol/L 0.6 - 2. 0 mmol/L [facility] Interpretation and review of laboratory results Abnormal [facility] Lactate [Moles/Vol] 2.8 mmol/L High 0.6 - 2. 0 mmol/L [facility] Respiratory pathogens DNA an d RNA panel ALICE+non-probe (Nph)Ordered By: Melania Freeman on 11-27-2023 Adenovirus DNA ALICE+non-probe Ql (Nph) Not detected Not Detected [facility] B. parapertussis [id number] DNA ALICE+non-probe Ql (Nph) Not detected Not Detected [facility] B. pertussis toxin promoter region ALICE+non-probe Ql (Nph) Not detected Not Detected [facility] C. pneumoniae DNA ALICE+non-probe Ql (Nph) Not detected Not Detected [facility] FLUAV RNA ALICE+non-probe Ql (Nph) Not detected Not Detected [facility] FLUBV RNA ALICE+non-probe Ql (Nph) Not detected Not Detected [facility] HCoV 229E RNA ALICE+non-probe Ql (Nph) Not detected Not Detected [facility] HCoV HKU1 RNA ALICE+non-probe Ql (Nph) Not detected Not Detected [facility] HCoV NL63 RNA ALICE+non-probe Ql (Nph) Not detected Not Detected [facility] HCoV OC43 RNA ALICE+non-probe Ql (Nph) Not detected Not Detected [facility] hMPV RNA ALICE+non-probe Ql (Nph) Not detected Not Detected [facility] Interpretation and review of laboratory results Normal [facility] M. pneumoniae DNA ALICE+non-probe Ql (Nph) Not detected Not Detected [facility] Parainfluenza virus 1 RNA ALICE+non-probe Ql (Nph) Not detected Not Detected [facility] Parainfluenza virus 2 RNA ALICE+non-probe Ql (Nph) Not detected Not Detected [facility] Parainfluenza virus 3 RNA ALICE+non-probe Ql (Nph) Not detected Not Detected [facility] Parainfluenza virus 4 RNA ALICE+non-probe Ql (Nph) Not detected Not Detected [facility] Rhinovirus+Enterovirus RNA ALICE+non-probe Ql (Nph) Not detected Not Detected [facility] RSV RNA ALIEC+non-probe Ql (Nph) Not detected Not Detected [facility] SARS-CoV-2 (COVID-19) RNA ALICE+non-probe Ql (Nph) Not detected Not Detected [facility] S. pneumoniae Urine AntigenO rdered By: Maxine Hill on 11-27-2023 Interpretation and review of laboratory results Normal [facility] S. pneumoniae Ag Ql (U) Negative Pres umptive Negative for Pneumococcal pneumoniae [facility] TSH DL <= 0.005 mIU/L Qnon 0 11-27-2023 Interpretation and review of laboratory results Normal [facility] TSH Qn 0.35 m[IU]/L [facility] Tropinin I.cardiac panel Hig h sensitivity methodon 11-27-2023 Interpretation and review of laboratory results Abnormal [facility] Less than 99th percentile of normal [...] performed using a different testing methodology at [facility] than at other [facility]. Direct result comparisons should only be made within the same method. [facility] Troponin I, High Sensitivity on 11-27-2023 Tropinin I.cardiac panel High sensitivity method 6445 ng/L Critically high 0 - 20 ng/L [facility] Comment on above: Previous result zay boss on 11/26/2023 2158 on specimen/case [id number] called with component [facility] for procedure Troponin I, High Sensitivity with value 2,361 ng/L. Troponin x 2 (Now and Repeat in 3 hours)Ordered By: Stephanie Carlton on 11-27-2023 Delta % Troponin I -6 % <20% of Baseline Troponin [facility] Inter Troponin I Delta Change Probable non-acute cardiac injury or late presentation of acute injury. [facility] Interpretation and review of laboratory results Abnormal [facility] Troponin I 9349 ng/L Critically high NINF - 59 ng/L [facility] Troponin x 2 (Now and Repeat in 3 hours)on 11-27-2023 Interpretation and review of laboratory results Abnormal [facility] Troponin I 9973 ng/L Critically high NINF - 59 ng/L [facility] Troponin I Interpretation Possible acute cardiac injury. [facility] XR Chest PA and Abdomen APon 11-27-2023 GE RIS GE RIS [facility] Radiology Study observation (narrative) [facility] XR Chest PA and Abdomen APOr dered By: Malika Painting on 11-27-2023 [facility] Work Phone: aPTT Coag (Bld) [Time]Ordere d By: Becky Mercado on 11-27-2023 Interpretation and review of laboratory results Abnormal [facility] aPTT Coag (Bld) [Time]Orderariela d By: Anjali Hartmann on 11-27-2023 Interpretation and review of laboratory results Abnormal [facility] CBC W Auto Differential pane l (Bld)on 11-26-2023 Basophils (Bld) [#/Vol] 0.05 10*3/uL [facility] Basophils/100 WBC (Bld) 0.2 % 0.0 - 2.0 % [facility] Eosinophils (Bld) [#/Vol] 0.00 10*3/uL [facility] Eosinophils/100 WBC (Bld) 0.0 % 0.0 - 6.0 % [facility] Erythrocyte distribution width (RBC) [Ratio] 13.8 % 11.5 - 14.5 % [facility] Hematocrit (Bld) [Volume fraction] 38.0 % Low 41.0 - 52.0 % [facility] Hemoglobin (Bld) [Mass/Vol] 12.2 g/dL Low 13.5 - 17.5 g/dL [facility] Immature granulocytes (Bld) [#/Vol] 0.12 10*3/uL [facility] Immature granulocytes/100 WBC (Bld) 0.6 % 0.0 - 0.9 % [facility] Comment on above: Immature Granulocyte Count (IG) includes promyelocytes, myelocytes and metamyelocytes but does not include bands. Percent differential counts (%) should be interpreted in the context of the absolute cell counts (cells/UL). Interpretation and review of laboratory results Abnormal [facility] Lymphocytes (Bld) [#/Vol] 2.01 10*3/uL [facility] Lymphocytes/100 WBC (Bld) 9.8 % 13.0 - 44. 0 % [facility] MCH (RBC) [Entitic mass] 30.5 pg 26. 0 - 34.0 pg [facility] MCHC (RBC) [Mass/Vol] 32.1 g/dL 32.0 - 36.0 g/dL [facility] MCV (RBC) [Entitic vol] 95 fL 80 - 100 fL [facility] Monocytes (Bld) [#/Vol] 0.75 10*3/uL [facility] Monocytes/100 WBC (Bld) 3.7 % 2.0 - 10.0 % [facility] Neutrophils (Bld) [#/Vol] 17.49 10*3/uL High [facility] Comment on above: Percent differential counts (%) should be interpreted in the context of the absolute cell counts (cells/uL). Neutrophils/100 WBC (Bld) 85.7 % 40.0 - 80. 0 % [facility] Nucleated RBC/100 WBC (Bld) [Ratio] 0.0 % [facility] Platelets (Bld) [#/Vol] 281 10*3/uL [facility] RBC (Bld) [#/Vol] 4.00 10*6/uL Low Unive [facility] WBC (Bld) [#/Vol] 20.4 10*3/uL High [facility] Comprehensive metabolic 2000 panelon 11-26-2023 Albumin BCP dye [Mass/Vol] 4.2 g/dL 3.4 - 5.0 g/dL [facility] ALP [Catalytic activity/Vol] 101 U/L 33 - 136 U/L [facility] ALT With P-5'-P [Catalytic activity/Vol] 38 U/L 10 - 52 U/L [facility] Comment on above: Patients treated wit h Sulfasalazine may generate falsely decreased results for ALT. Anion gap [Moles/Vol] 17 mmol/L 10 - 2 0 mmol/L [facility] AST With P-5'-P [Catalytic activity/Vol] 53 U/L High 9 - 39 U/L [facility] Bilirubin [Mass/Vol] 0.6 mg/dL 0.0 - 1 .2 mg/dL [facility] Calcium [Mass/Vol] 9.2 mg/dL 8.6 - 10. 3 mg/dL [facility] Chloride [Moles/Vol] 106 mmol/L 98 - 10 7 mmol/L [facility] CO2 [Moles/Vol] 17 mmol/L Low 21 - 32 mmol/L [facility] Creatinine [Mass/Vol] 1.96 mg/dL High 0.50 - 1.30 mg/dL [facility] GFR/1.73 sq M.predicted among non-blacks MDRD (S/P/Bld) [Vol rate/Area] 34 mL/min/{1.73_m2} Low - PINF Un [facility] Comment on above: Calculations of albin mated GFR are performed using the 2020 CKD-EPI Study Refit equation without the race variable for the IDMS-Traceable creatinine methods. https://jasn.asnjournals.org/content//ASN.20 43993004 Glucose [Mass/Vol] 492 mg/dL Critically high 74 - 99 mg/d L [facility] Comment on above: Confirmed by repeat analysis Interpretation and review of laboratory results Abnormal [facility] Potassium [Moles/Vol] 4.5 mmol/L 3.5 - 5.3 mmol/L [facility] Protein [Mass/Vol] 6.7 g/dL 6.4 - 8.2 g/dL [facility] Sodium [Moles/Vol] 135 mmol/L Low 136 - 145 mmol/L [facility] Urea nitrogen [Mass/Vol] 35 mg/dL High 6 - 23 mg/d L [facility] Critical Careon 11-26-2023 Ger Bansal DO 11/27/2023 1:19 AM Critical Care Performed by: Ger Bansal DO Authorized by: Ger Bansal DO Critical care provider statement: Critical care [...] discussed with: accepting provider at another facility [facility] Work Phone: [facility] Work Phone: Lactateon 11-26-2023 Lactate [Moles/Vol] 3.2 mmol/L High 0.4 - 2. 0 mmol/L [facility] Lactate [Moles/Vol] 3.8 mmol/L High 0.4 - 2. 0 mmol/L [facility] Lactate [Moles/Vol]on 2023 Interpretation and review of laboratory results Abnormal [facility] Venipuncture immediately after or during the administration of Metamizole may lead to falsely low results. Testing should be performed immediately prior to Metamizole dosing. [facility] Interpretation and review of laboratory results Abnormal [facility] Venipuncture immediately after or during the administration of Metamizole may lead to falsely low results. Testing should be performed immediately prior to Metamizole dosing. [facility] MRSA DNA ALICE+probe Ql (Nose) on 11-26-2023 Interpretation and review of laboratory results Normal [facility] MRSA DNA ALICE+probe Ql (Unsp spec) Not detected Not Detected [facility] This assay is an FDA-approved in vitro diagnostic nucleic acid amplification test for the detection of methicillin-resistan t Staphylococcus aureus (MRSA) DNA directly from nasal [...] patients less than two years of age. [facility] Magnesiumon 11-26-2023 Magnesium [Mass/Vol] 2.20 mg/dL 1.60 - 2.40 mg/dL [facility] Magnesium [Mass/Vol]on 11-26 Interpretation and review of laboratory results Normal [facility] Natriuretic peptide B [Mass/ Vol]on 11-26-2023 Interpretation and review of laboratory results Abnormal [facility] Natriuretic peptide B (Bld) [Mass/Vol] 902 pg/mL High 0 - 99 pg/mL [facility] <100 pg/mL - Heart failure unlikely 100-299 pg/mL - Intermediate probability of acute heart failure exacerbation. Correlate with clinical context and patient history. >=300 pg/mL - Heart Failure likely. Correlate with clinical context and patient history. BNP testing is performed using different testing methodology at [facility] than at other [facility]. Direct result comparisons should only be made within the same method. [facility] No Panel Informationon 11-26 [facility] Interpretation and review of laboratory results Normal [facility] PT Coag (PPP) [Time]on 11-26 INR Coag (PPP) [Relative time] 1.1 {INR} 0.9 - 1.1 [facility] Protime-INRon 11-26-2023 PT Coag (PPP) [Time] 12.3 s [facility] Tropinin I.cardiac panel Hig h sensitivity methodon 11-26-2023 Interpretation and review of laboratory results Abnormal [facility] Less than 99th percentile of normal [...] performed using a different testing methodology at [facility] than at other [facility]. Direct result comparisons should only be made within the same method. [facility] Interpretation and review of laboratory results Abnormal [facility] Less than 99th percentile of normal [...] performed using a different testing methodology at [facility] than at other [facility]. Direct result comparisons should only be made within the same method. [facility] Troponin I, High Sensitivity on 11-26-2023 Tropinin I.cardiac panel High sensitivity method 3473 ng/L Critically high 0 - 20 ng/L [facility] Comment on above: Previous result veri fied on 11/26/2023 2158 on specimen/case [id number] called with component [facility] for procedure Troponin I, High Sensitivity with value 2,361 ng/L. Tropinin I.cardiac panel High sensitivity method 2361 ng/L Critically high 0 - 20 ng/L [facility] XR Chest Single viewon 11-26 Pulmonary vascular congestive change and edema and small bilateral pleural effusions. There is asymmetric opacity in the right lower lung concerning for superimposed pneumonia. 10 mm nodular opacity at the left lung base; follow-up dedicated CT chest is recommended to exclude underlying pulmonary nodule. MACRO: None Signed by: Ghassan Tovar 11/26/2023 10:02 PM Dictation workstation: [id number] Interpreted By: Ghassan Tovar, STUDY: XR CHEST 1 VIEW; 11/26/2023 9:31 pm INDICATION: Signs/Symptoms:dyspn ea. COMPARISON: 10/13/2023 ACCESSION NUMBER(S): [id number] ORDERING CLINICIAN: GER BANSAL FINDINGS: The cardiac silhouette is stable in size. There is pulmonary vascular congestive change and edema. Small bilateral pleural effusions. There is 10 mm nodular opacity at the left lung base. No pneumothorax [facility] Ghassan Tovar MD - 11/26/2023 Interpreted By: Ghassan Tovar, STUDY: XR CHEST 1 VIEW; 11/26/2023 9:31 pm INDICATION: Signs/Symptoms:dyspn ea. COMPARISON: 10/13/2023 ACCESSION NUMBER(S): [id number] ORDERING CLINICIAN: GER BANSAL FINDINGS: The cardiac silhouette is stable in [...] Ghassan Tovar 11/26/2023 10:02 PM Dictation workstation: [id number] [facility] [facility] Work Phone: Radiology Study observation (narrative) [facility] Work Phone: XR Chest Single viewOrdered By: Ghassan Tovar on 11-26-2023 [facility] Work Phone: aPTTon 11-26-2023 aPTT Coag (PPP) [Time] 38 s Un [facility] aPTT Coag (PPP) [Time]on The APTT is no longer used for monitoring Unfractionated Heparin Therapy. For monitoring Heparin Therapy, use the Heparin Assay. [facility] Absolute lymphocyte countOrd ered By: Ryley Jeter on 11-25-2023 Lymphocytes Auto (Unsp spec) [#/Vol] 1.79 10*3/uL 0.83-4.51 [facility] Automated lymphocyte count a s percentage of total leukocytesOrdered By: Ryley Jeter on 11-25-2023 Lymphocytes/100 WBC Auto (Unsp spec) 19.7 % 19-41 [facility] Basophil percentageOrdered B y: Ryley Jeter on 11-25-2023 Basophils/100 WBC (Bld) 1.0 % 0-1 W [facility] Bilirubin [Mass/Vol] 0.50 mg/dL 0.20-1.00 [facility] Comment on above: For patients on eltr ombopag therapy, use of Dimension Napoleon TBIL is not recommended. Chloride [Moles/Vol] 113 mmol/L 98-107 [facility] Eosinophils/100 WBC (Bld) 2.3 % 0-5 [facility] Glucose [Mass/Vol] 130 mg/dL 74-106 [facility] Comment on above: Fasting Glucose resu lt greater than or equal to 126 mg/dL suggests DIABETES MELLITUS per A.D.A. criteria. Hemoglobin (Bld) [Mass/Vol] 12.2 g/dL 13.0-16.5 [facility] Monocytes/100 WBC (Bld) 7.5 % 0-10 [facility] Neutrophils (Bld) [#/Vol] 6.3 10*3/uL 2.0-7.7 [facility] Neutrophils/100 WBC (Bld) 69.2 % 47-70 [facility] Potassium [Moles/Vol] 4.3 mmol/L 3.5-5.1 [facility] Protein [Mass/Vol] 7.1 g/dL 6.4-8.2 [facility] Sodium [Moles/Vol] 142 mmol/L 136-145 [facility] WBC (Bld) [#/Vol] 9.1 10*3/uL 4.4-11.0 [facility] Determination of erythrocyte mean corpuscular volume (MCV)Ordered By: Ryley Jeter on 11-25-2023 MCV (RBC) [Entitic vol] 93.5 fL 80-94 W [facility] Erythrocyte distribution wid th ratioOrdered By: Ryley Jeter on 11-25-2023 Erythrocyte distribution width (RBC) [Ratio] 14.1 % 11.6-14.6 [facility] Erythrocyte distribution wid th standard deviationOrdered By: Ryley Jeter on 11-25-2023 Erythrocyte distribution width (RBC) [Entitic vol] 47.9 fL 35.1-43.9 [facility] Hematocrit Auto (Bld) [Volum e fraction]Ordered By: Ryley Jeter on 11-25-2023 Hematocrit (Bld) [Volume fraction] 37.7 % 40-54 [facility] Immature granulocytes/100 WB C Auto (Bld)Ordered By: Ryely Jeter on 11-25-2023 Immature granulocytes/100 WBC (Bld) 0.300 % 0.0-0.9 [facility] Comment on above: IG% - Immature Granu locytes (promyelocytes, myelocytes and metamyelocytes) > 1% indicates that a LEFT SHIFT is Present. Laboratory - Chemistry and C hemistry - challengeOrdered By: Ryley Jeter on 11-25-2023 Albumin/Globulin [Mass ratio] 1.0 {ratio} 0.9-2.4 [facility] ALP [Catalytic activity/Vol] 98 U/L 45-117 [facility] ALT [Catalytic activity/Vol] 25 U/L 16-61 [facility] CO2 [Moles/Vol] 25.0 mmol/L 21.0-32.0 [facility] Globulin (S) [Mass/Vol] 3.5 g/dL 2.2-4.2 [facility] Urea nitrogen/Creatinine [Mass ratio] 13.5 mg/mg 10-20 [facility] Laboratory - Hematology and Cell countsOrdered By: Ryley Jeter on 11-25-2023 MCH (RBC) [Entitic mass] 30.3 pg 27.0-32.0 [facility] MCHC (RBC) [Mass/Vol] 32.4 g/dL 32-36 [facility] Nucleated RBC/100 WBC (Bld) [Ratio] 0 % 0-5 [facility] Platelets (Bld) [#/Vol] 239 10*3/uL 150-450 [facility] No Panel InformationOrdered By: Ryley Jeter on 11-25-2023 Estimated GFR (MDRD) Amer 55 mL/min >60 [facility] Comment on above: GFR Calc Estimated GFR (MDRD) Non-Af Amer 46 mL/min >60 [facility] Comment on above: Non- GFR Calc Platelet mean volume Kodi-Ec ker (Bld) [Entitic vol]Ordered By: Ryley Jeter on 11-25-2023 Platelet mean volume (Bld) [Entitic vol] 11.3 fL 6.2-12.0 [facility] RBC Auto (Bld) [#/Vol]Ordere d By: Ryley Jeter on 11-25-2023 RBC (Bld) [#/Vol] 4.03 10*6/uL 4.6-6.2 [facility] Serum or plasma calcium nikkie urement (mass/volume)Ordered By: Ryley Jeter on 11-25-2023 Calcium [Mass/Vol] 9.5 mg/dL 8.5-10.1 [facility] Serum or plasma creatinine m easurement (mass/volume)Ordered By: Ryley Jeter on 11-25-2023 Creatinine [Mass/Vol] 1.56 mg/dL 0.70-1.30 [facility] Comment on above: The validity of the calculated GFR & GFRAA in patients over 70 years has not been determined. Clinical correlation is essential. Serum or plasma thyroid stim ulating hormone (TSH) measurement (units/volume)Ordered By: [facility] on 11-25-2023 TSH Qn 0.80 uIU/mL 0.358-3.74 [facility] Serum or plasma urea nitroge n measurement (mass/volume)Ordered By: Ryley Steffany on 11-25-2023 Urea nitrogen [Mass/Vol] 21 mg/dL 7-18 [facility] Thin prep Papanicolaou smear with manual screeningOrdered By: [facility] on 11-25-2023 Thin prep Papanicolaou smear with manual screening 3.6 g/dL 3.2-5.0 [facility] Thin prep Papanicolaou smear with manual screening 23 U/L 15-37 [facility] Thin prep Papanicolaou smear with manual screening 4 5-15 [facility] Basophil percentageOrdered B y: Jana Ferguson on 10-22-2023 Chloride [Moles/Vol] 111 mmol/L 98-107 [facility] Glucose [Mass/Vol] 120 mg/dL 74-106 [facility] Comment on above: Fasting Glucose resu lt from 100 to 125 mg/dL suggests IMPAIRED HOMEOSTASIS per A.D.A. criteria. Potassium [Moles/Vol] 4.7 mmol/L 3.5-5.1 [facility] Sodium [Moles/Vol] 140 mmol/L 136-145 [facility] WBC (Bld) [#/Vol] 9.1 10*3/uL 4.4-11.0 [facility] Blood erythrocytes count (nu mber/volume)Ordered By: Jana Ferguson on 10-22-2023 RBC (Bld) [#/Vol] 4.16 10*6/uL 4.6-6.2 [facility] Blood hemoglobin measurement (mass/volume)Ordered By: Jana Ferguson on 10-22-2023 Hemoglobin (Bld) [Mass/Vol] 12.3 g/dL 13.0-16.5 [facility] Blood platelet mean volumeOr dered By: Jana Ferguson on 10-22-2023 Platelet mean volume (Bld) [Entitic vol] 11.6 fL 6.2-12.0 [facility] Determination of erythrocyte mean corpuscular volume (MCV)Ordered By: Jana Ferguson on 10-22-2023 MCV (RBC) [Entitic vol] 93.0 fL 80-94 W [facility] Hematocrit Auto (Bld) [Volum e fraction]Ordered By: Jana Ferguson on 10-22-2023 Hematocrit (Bld) [Volume fraction] 38.7 % 40-54 [facility] Laboratory - Chemistry and C hemistry - challengeOrdered By: Jana Ferguson on 10-22-2023 CO2 [Moles/Vol] 27.0 mmol/L 21.0-32.0 [facility] Urea nitrogen/Creatinine [Mass ratio] 20.9 mg/mg 10-20 [facility] Laboratory - Hematology and Cell countsOrdered By: Jana Ferguson on 10-22-2023 Erythrocyte distribution width (RBC) [Entitic vol] 44.3 fL 35.1-43.9 [facility] Erythrocyte distribution width (RBC) [Ratio] 13.0 % 11.6-14.6 [facility] MCH (RBC) [Entitic mass] 29.6 pg 27.0-32.0 [facility] MCHC Auto (RBC) [Mass/Vol]Or dered By: Jana Ferguson on 10-22-2023 MCHC (RBC) [Mass/Vol] 31.8 g/dL 32-36 [facility] No Panel InformationOrdered By: Jana Ferguson on 10-22-2023 Estimated GFR (MDRD) Amer 40 mL/min >60 [facility] Comment on above: GFR Calc Estimated GFR (MDRD) Non-Af Amer 33 mL/min >60 [facility] Comment on above: Non- GFR Calc Platelets bldOrdered By: Jadyn Ferguson on 10-22-2023 Platelets (Bld) [#/Vol] 304 10*3/uL 150-450 [facility] Serum or plasma calcium nikkie urement (mass/volume)Ordered By: Jana Ferguson on 10-22-2023 Calcium [Mass/Vol] 9.1 mg/dL 8.5-10.1 [facility] Serum or plasma creatinine m easurement (mass/volume)Ordered By: Jana Ferguson on 10-22-2023 Creatinine [Mass/Vol] 2.06 mg/dL 0.70-1.30 [facility] Comment on above: The validity of the calculated GFR & GFRAA in patients over 70 years has not been determined. Clinical correlation is essential. Serum or plasma urea nitroge n measurement (mass/volume)Ordered By: Jana Ferguson on 10-22-2023 Urea nitrogen [Mass/Vol] 43 mg/dL 7-18 [facility] Thin prep Papanicolaou smear with manual screeningOrdered By: Jana Ferguson on 10-22-2023 Thin prep Papanicolaou smear with manual screening 2 5-15 [facility] Basic metabolic 2000 panelon 10-13-2023 Anion gap [Moles/Vol] 17 mmol/L 10 - 2 0 mmol/L [facility] Calcium [Mass/Vol] 8.3 mg/dL Low 8.6 - 10. 3 mg/dL [facility] Chloride [Moles/Vol] 102 mmol/L 98 - 10 7 mmol/L [facility] CO2 [Moles/Vol] 22 mmol/L 21 - 32 mmol/L [facility] Creatinine [Mass/Vol] 2.30 mg/dL High 0.50 - 1.30 mg/dL [facility] GFR/1.73 sq M.predicted MDRD (S/P/Bld) [Vol rate/Area] 28 mL/min/{1.73_m2} Low - PINF [facility] Comment on above: Calculations of albin mated GFR are performed using the 2020 CKD-EPI Study Refit equation without the race variable for the IDMS-Traceable creatinine methods. https://jasn.asnjournals.org/content//ASN.20 29686430 Glucose [Mass/Vol] 327 mg/dL High 74 - 99 mg/dL [facility] Interpretation and review of laboratory results Abnormal [facility] Potassium [Moles/Vol] 4.9 mmol/L 3.5 - 5.3 mmol/L [facility] Sodium [Moles/Vol] 136 mmol/L 136 - 145 mmol/L [facility] Urea nitrogen [Mass/Vol] 57 mg/dL High 6 - 23 mg/d L [facility] CBC W Auto Differential pane l (Bld)on 10-13-2023 Basophils (Bld) [#/Vol] 0.02 10*3/uL [facility] Basophils/100 WBC (Bld) 0.1 % 0.0 - 2.0 % [facility] Eosinophils (Bld) [#/Vol] 0.00 10*3/uL [facility] Eosinophils/100 WBC (Bld) 0.0 % 0.0 - 6.0 % [facility] Erythrocyte distribution width (RBC) [Ratio] 13.2 % 11.5 - 14.5 % [facility] Hematocrit (Bld) [Volume fraction] 36.4 % Low 41.0 - 52.0 % [facility] Hemoglobin (Bld) [Mass/Vol] 12.4 g/dL Low 13.5 - 17.5 g/dL [facility] Immature granulocytes (Bld) [#/Vol] 0.11 10*3/uL [facility] Immature granulocytes/100 WBC (Bld) 0.6 % 0.0 - 0.9 % [facility] Comment on above: Immature Granulocyte Count (IG) includes promyelocytes, myelocytes and metamyelocytes but does not include bands. Percent differential counts (%) should be interpreted in the context of the absolute cell counts (cells/UL). Interpretation and review of laboratory results Abnormal [facility] Lymphocytes (Bld) [#/Vol] 1.30 10*3/uL [facility] Lymphocytes/100 WBC (Bld) 7.3 % 13.0 - 44. 0 % [facility] MCH (RBC) [Entitic mass] 31.0 pg 26. 0 - 34.0 pg [facility] MCHC (RBC) [Mass/Vol] 34.1 g/dL 32.0 - 36.0 g/dL [facility] MCV (RBC) [Entitic vol] 91 fL 80 - 100 fL [facility] Monocytes (Bld) [#/Vol] 1.15 10*3/uL [facility] Monocytes/100 WBC (Bld) 6.5 % 2.0 - 10.0 % [facility] Neutrophils (Bld) [#/Vol] 15.21 10*3/uL [facility] Comment on above: Percent differential counts (%) should be interpreted in the context of the absolute cell counts (cells/uL). Neutrophils/100 WBC (Bld) 85.5 % 40.0 - 80. 0 % [facility] Nucleated RBC/100 WBC (Bld) [Ratio] 0.0 % [facility] Platelets (Bld) [#/Vol] 153 10*3/uL [facility] RBC (Bld) [#/Vol] 4.00 10*6/uL Low Unive [facility] WBC (Bld) [#/Vol] 17.8 10*3/uL High Unive [facility] Glucose Test strip manual (B ld) [Mass/Vol]on 10-13-2023 Glucose [Mass/Vol] 329 mg/dL High 74 - 99 mg/dL [facility] Interpretation and review of laboratory results Abnormal [facility] Glucose [Mass/Vol] 304 mg/dL High 74 - 99 mg/dL [facility] Interpretation and review of laboratory results Abnormal [facility] Glucose [Mass/Vol] 305 mg/dL High 74 - 99 mg/dL [facility] Interpretation and review of laboratory results Abnormal [facility] XR Chest Single viewon 10-13 Right upper lobe airspace consolidation, concerning for pneumonia. Clinical correlation and continued follow-up until clearing is recommended. MACRO: None. Signed by: Jaret Walker 10/13/2023 11:21 AM Dictation workstation: [id number] MMODAL Interpreted By: Jaret Walker, STUDY: XR CHEST 1 VIEW 10/13/2023 8:31 am INDICATION: Signs/Symptoms:Acute dyspnea COMPARISON: 10/11/2023 ACCESSION NUMBER(S): [id number] ORDERING CLINICIAN: VERA RIVERA TECHNIQUE: A single [...] INDICATION: Signs/Symptoms:Acute dyspnea COMPARISON: 10/11/2023 ACCESSION NUMBER(S): [id number] ORDERING CLINICIAN: VERA RIVERA TECHNIQUE: A single [...] Jaret Walker 10/13/2023 11:21 AM Dictation workstation: [id number] [facility] Work Phone: Radiology Study observation (narrative) [facility] Work Phone: XR Chest Single viewOrdered By: Jaret Walker on 10-13-2023 [facility] Work Phone: Basic metabolic 2000 panelon 10-12-2023 Anion gap [Moles/Vol] 13 mmol/L 10 - 2 0 mmol/L [facility] Calcium [Mass/Vol] 8.2 mg/dL Low 8.6 - 10. 3 mg/dL [facility] Chloride [Moles/Vol] 103 mmol/L 98 - 10 7 mmol/L [facility] CO2 [Moles/Vol] 23 mmol/L 21 - 32 mmol/L [facility] Creatinine [Mass/Vol] 2.11 mg/dL High 0.50 - 1.30 mg/dL [facility] GFR/1.73 sq M.predicted MDRD (S/P/Bld) [Vol rate/Area] 31 mL/min/{1.73_m2} Low - PINF [facility] Comment on above: Calculations of albin mated GFR are performed using the 2020 CKD-EPI Study Refit equation without the race variable for the IDMS-Traceable creatinine methods. https://jasn.asnjournals.org/content///ASN.20 64080530 Glucose [Mass/Vol] 214 mg/dL High 74 - 99 mg/dL [facility] Interpretation and review of laboratory results Abnormal [facility] Potassium [Moles/Vol] 4.4 mmol/L 3.5 - 5.3 mmol/L [facility] Sodium [Moles/Vol] 135 mmol/L Low 136 - 145 mmol/L [facility] Urea nitrogen [Mass/Vol] 44 mg/dL High 6 - 23 mg/d L [facility] CBC W Auto Differential pane l (Bld)on 10-12-2023 Basophils (Bld) [#/Vol] 0.03 10*3/uL [facility] Basophils/100 WBC (Bld) 0.1 % 0.0 - 2.0 % [facility] Eosinophils (Bld) [#/Vol] 0.00 10*3/uL [facility] Eosinophils/100 WBC (Bld) 0.0 % 0.0 - 6.0 % [facility] Erythrocyte distribution width (RBC) [Ratio] 13.0 % 11.5 - 14.5 % [facility] Hematocrit (Bld) [Volume fraction] 34.5 % Low 41.0 - 52.0 % [facility] Hemoglobin (Bld) [Mass/Vol] 11.8 g/dL Low 13.5 - 17.5 g/dL [facility] Immature granulocytes (Bld) [#/Vol] 0.09 10*3/uL [facility] Immature granulocytes/100 WBC (Bld) 0.4 % 0.0 - 0.9 % [facility] Comment on above: Immature Granulocyte Count (IG) includes promyelocytes, myelocytes and metamyelocytes but does not include bands. Percent differential counts (%) should be interpreted in the context of the absolute cell counts (cells/UL). Interpretation and review of laboratory results Abnormal [facility] Lymphocytes (Bld) [#/Vol] 1.79 10*3/uL [facility] Lymphocytes/100 WBC (Bld) 8.6 % 13.0 - 44. 0 % [facility] MCH (RBC) [Entitic mass] 30.8 pg 26. 0 - 34.0 pg [facility] MCHC (RBC) [Mass/Vol] 34.2 g/dL 32.0 - 36.0 g/dL [facility] MCV (RBC) [Entitic vol] 90 fL 80 - 100 fL [facility] Monocytes (Bld) [#/Vol] 1.55 10*3/uL High [facility] Monocytes/100 WBC (Bld) 7.5 % 2.0 - 10.0 % [facility] Neutrophils (Bld) [#/Vol] 17.32 10*3/uL High [facility] Comment on above: Percent differential counts (%) should be interpreted in the context of the absolute cell counts (cells/uL). Neutrophils/100 WBC (Bld) 83.4 % 40.0 - 80. 0 % [facility] Nucleated RBC/100 WBC (Bld) [Ratio] 0.0 % [facility] Platelets (Bld) [#/Vol] 152 10*3/uL [facility] RBC (Bld) [#/Vol] 3.83 10*6/uL Low Unive [facility] WBC (Bld) [#/Vol] 20.8 10*3/uL High Unive [facility] Glucose Test strip manual (B ld) [Mass/Vol]on 10-12-2023 Glucose [Mass/Vol] 240 mg/dL High 74 - 99 mg/dL [facility] Interpretation and review of laboratory results Abnormal [facility] Glucose [Mass/Vol] 166 mg/dL High 74 - 99 mg/dL [facility] Interpretation and review of laboratory results Abnormal [facility] Glucose [Mass/Vol] 186 mg/dL High 74 - 99 mg/dL [facility] Interpretation and review of laboratory results Abnormal [facility] Glucose [Mass/Vol] 218 mg/dL High 74 - 99 mg/dL [facility] Interpretation and review of laboratory results Abnormal [facility] Glucose [Mass/Vol] 127 mg/dL High 74 - 99 mg/dL [facility] Interpretation and review of laboratory results Abnormal [facility] No Panel Informationon 10-12 Extra Tube Hold for add-ons. [facility] Comment on above: Auto resulted. [facility] CBC W Auto Differential pane l (Bld)on 10-11-2023 Basophils (Bld) [#/Vol] 0.07 10*3/uL [facility] Basophils/100 WBC (Bld) 0.7 % 0.0 - 2.0 % [facility] Eosinophils (Bld) [#/Vol] 0.09 10*3/uL [facility] Eosinophils/100 WBC (Bld) 0.9 % 0.0 - 6.0 % [facility] Erythrocyte distribution width (RBC) [Ratio] 13.0 % 11.5 - 14.5 % [facility] Hematocrit (Bld) [Volume fraction] 36.7 % Low 41.0 - 52.0 % [facility] Hemoglobin (Bld) [Mass/Vol] 12.0 g/dL Low 13.5 - 17.5 g/dL [facility] Immature granulocytes (Bld) [#/Vol] 0.03 10*3/uL [facility] Immature granulocytes/100 WBC (Bld) 0.3 % 0.0 - 0.9 % [facility] Comment on above: Immature Granulocyte Count (IG) includes promyelocytes, myelocytes and metamyelocytes but does not include bands. Percent differential counts (%) should be interpreted in the context of the absolute cell counts (cells/UL). Interpretation and review of laboratory results Abnormal [facility] Lymphocytes (Bld) [#/Vol] 1.34 10*3/uL [facility] Lymphocytes/100 WBC (Bld) 12.9 % 13.0 - 44. 0 % [facility] MCH (RBC) [Entitic mass] 30.4 pg 26. 0 - 34.0 pg [facility] MCHC (RBC) [Mass/Vol] 32.7 g/dL 32.0 - 36.0 g/dL [facility] MCV (RBC) [Entitic vol] 93 fL 80 - 100 fL [facility] Monocytes (Bld) [#/Vol] 1.25 10*3/uL High [facility] Monocytes/100 WBC (Bld) 12.0 % 2.0 - 10.0 % [facility] Neutrophils (Bld) [#/Vol] 7.64 10*3/uL High [facility] Comment on above: Percent differential counts (%) should be interpreted in the context of the absolute cell counts (cells/uL). Neutrophils/100 WBC (Bld) 73.2 % 40.0 - 80. 0 % [facility] Nucleated RBC/100 WBC (Bld) [Ratio] 0.0 % [facility] Platelets (Bld) [#/Vol] 158 10*3/uL [facility] RBC (Bld) [#/Vol] 3.95 10*6/uL Low Unive [facility] WBC (Bld) [#/Vol] 10.4 10*3/uL [facility] Comprehensive metabolic 2000 panelon 10-11-2023 Albumin BCP dye [Mass/Vol] 3.8 g/dL 3.4 - 5.0 g/dL [facility] ALP [Catalytic activity/Vol] 83 U/L 33 - 136 U/L [facility] ALT With P-5'-P [Catalytic activity/Vol] 13 U/L 10 - 52 U/L [facility] Comment on above: Patients treated wit h Sulfasalazine may generate falsely decreased results for ALT. Anion gap [Moles/Vol] 15 mmol/L 10 - 2 0 mmol/L [facility] AST With P-5'-P [Catalytic activity/Vol] 18 U/L 9 - 39 U/L [facility] Bilirubin [Mass/Vol] 0.4 mg/dL 0.0 - 1 .2 mg/dL [facility] Calcium [Mass/Vol] 8.5 mg/dL Low 8.6 - 10. 3 mg/dL [facility] Chloride [Moles/Vol] 103 mmol/L 98 - 10 7 mmol/L [facility] CO2 [Moles/Vol] 22 mmol/L 21 - 32 mmol/L [facility] Creatinine [Mass/Vol] 1.83 mg/dL High 0.50 - 1.30 mg/dL [facility] GFR/1.73 sq M.predicted MDRD (S/P/Bld) [Vol rate/Area] 37 mL/min/{1.73_m2} Low - PINF [facility] Comment on above: Calculations of albin mated GFR are performed using the 2020 CKD-EPI Study Refit equation without the race variable for the IDMS-Traceable creatinine methods. https://jasn.asnjournals.org/content//ASN.20 64922985 Glucose [Mass/Vol] 344 mg/dL High 74 - 99 mg/dL [facility] Interpretation and review of laboratory results Abnormal [facility] Potassium [Moles/Vol] 4.4 mmol/L 3.5 - 5.3 mmol/L [facility] Protein [Mass/Vol] 6.3 g/dL Low 6.4 - 8.2 g/dL [facility] Sodium [Moles/Vol] 136 mmol/L 136 - 145 mmol/L [facility] Urea nitrogen [Mass/Vol] 30 mg/dL High 6 - 23 mg/d L [facility] Critical Careon 10-11-2023 Aury Rouse DO [...] specialty: no Care discussed with: admitting provider [facility] Work Phone: [facility] Work Phone: D-Dimer, VTE Exclusionon Fibrin D-dimer FEU (PPP) [Mass/Vol] 1869 High NINF [facility] ECG 12-LEADon 10-11-2023 ECG 12-LEAD Ventricular Rate 113 Atrial Rate 113 P-R Interval 148 QRS Duration 82 Q-T Interval 332 QTC Calculation(Bazett) 455 P Maywood 67 R Maywood 39 T [place]wood 81 QRS Count 18 Q Onset 220 P Onset 146 P Offset 189 T Offset 386 QTC Fredericia 410 Diagnosis Sinus tachycardia 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 NON-SPECIFIC T-WAVE CHANGES Abnormal EKG Confirmed by Tyrone Bajwa (111) on 10/11/2023 6:18:47 PM Normal [facility] FLUAV and FLUBV RNA ALICE+prob e Nom (Unsp spec)on 10-11-2023 FLUAV RNA ALICE+probe Ql (Resp) Not detected Not Detected [facility] FLUBV RNA ALICE+probe Ql (Resp) Not detected Not Detected [facility] This assay is an in vitro diagnostic multiplex nucleic acid amplification test for the detection and discrimination of Influenza A & B from nasopharyngeal specimens, and has been validated for use at [facility]. Negative results do not preclude Influenza A/B infections, and should not be used as the sole basis for diagnosis, treatment, or other management decisions. If Influenza A/B and RSV PCR results are negative, testing for Parainfluenza virus, Adenovirus and Metapneumovirus is routinely performed for [facility] pediatric oncology and intensive care inpatients, and is available on other patients by placing an add-on request. [facility] Fibrin D-dimer FEU (PPP) [Ma ss/Vol]on 10-11-2023 Interpretation and review of laboratory results Abnormal [facility] The VTE Exclusion D-Dimer assay is reported in ng/mL Fibrinogen Equivalent Units (FEU). Per poolroom table attendant's instructions for use, a value of less [...] assessment model for DVT or PE exclusion.) [facility] Gas panel (BldA)on 3 Apparatus CANNULA [facility] Base excess Calc (Bld) [Moles/Vol] -2.2000 mmol/L Low -2.0 - 3.0 mmol/L [facility] CO2 (Bld) [Partial pressure] 41 mm[Hg] [facility] HCO3 (Bld) [Moles/Vol] 23.2 mmol/L 22.0 - 26.0 mmol/L [facility] Inhaled oxygen concentration 50 % [facility] Interpretation and review of laboratory results Abnormal [facility] Oxygen (Bld) [Partial pressure] 66 mm[Hg] Low [facility] Oxyhemoglobin (BldA) [Mass fraction] 90.6 % Low 94.0 - 98.0 % [facility] pH (Bld) 7.36 [pH] Low 7.38 - 7.42 pH [facility] Glucose Test strip manual (B ld) [Mass/Vol]on 10-11-2023 Glucose [Mass/Vol] 132 mg/dL High 74 - 99 mg/dL [facility] Interpretation and review of laboratory results Abnormal [facility] Glucose [Mass/Vol] 203 mg/dL High 74 - 99 mg/dL [facility] Interpretation and review of laboratory results Abnormal [facility] Glucose [Mass/Vol] 271 mg/dL High 74 - 99 mg/dL [facility] Interpretation and review of laboratory results Abnormal [facility] Glucose [Mass/Vol] 357 mg/dL High 74 - 99 mg/dL [facility] Interpretation and review of laboratory results Abnormal [facility] Glucose [Mass/Vol] 407 mg/dL High 74 - 99 mg/dL [facility] Interpretation and review of laboratory results Abnormal [facility] Glucose [Mass/Vol] 385 mg/dL High 74 - 99 mg/dL [facility] Interpretation and review of laboratory results Abnormal [facility] Glucose [Mass/Vol] 455 mg/dL High 74 - 99 mg/dL [facility] Comment on above: RN/ NOTIFIED Interpretation and review of laboratory results Abnormal [facility] Glucose [Mass/Vol] 481 mg/dL High 74 - 99 mg/dL [facility] Comment on above: RN/ NOTIFIED Interpretation and review of laboratory results Abnormal [facility] Glucose [Mass/Vol] mg/dL High 74 - 99 mg/dL [facility] Interpretation and review of laboratory results Abnormal [facility] Glucose [Mass/Vol] mg/dL High 74 - 99 mg/dL [facility] Interpretation and review of laboratory results Abnormal [facility] Glucose [Mass/Vol] 571 mg/dL High 74 - 99 mg/dL [facility] Interpretation and review of laboratory results Abnormal [facility] Glucose [Mass/Vol] 562 mg/dL High 74 - 99 mg/dL [facility] Comment on above: RN/ NOTIFIED Interpretation and review of laboratory results Abnormal [facility] Glucose [Mass/Vol] 386 mg/dL High 74 - 99 mg/dL [facility] Interpretation and review of laboratory results Abnormal [facility] Glucose [Mass/Vol]on 023 Interpretation and review of laboratory results Abnormal [facility] Glucose, randomon 10-11-2023 Glucose [Mass/Vol] 654 mg/dL Critically high 74 - 99 mg/d L [facility] Comment on above: Confirmed by repeat analysis Lactateon 10-11-2023 Lactate [Moles/Vol] 1.6 mmol/L 0.4 - 2. 0 mmol/L [facility] Lactate [Moles/Vol]on 2022 Interpretation and review of laboratory results Normal [facility] Venipuncture immediately after or during the administration of Metamizole may lead to falsely low results. Testing should be performed immediately prior to Metamizole dosing. [facility] Natriuretic peptide B [Mass/ Vol]on 10-11-2023 Interpretation and review of laboratory results Abnormal [facility] Natriuretic peptide B (Bld) [Mass/Vol] 251 pg/mL High 0 - 99 pg/mL [facility] <100 pg/mL - Heart failure unlikely 100-299 pg/mL - Intermediate probability of acute heart failure exacerbation. Correlate with clinical context and patient history. >=300 pg/mL - Heart Failure likely. Correlate with clinical context and patient history. BNP testing is performed using different testing methodology at [facility] than at other [facility]. Direct result comparisons should only be made within the same method. [facility] No Panel Informationon 10-11 Atrial Rate 113 BPM [facility] Work Phone: [phone] P Maywood 67 degrees [facility] Work Phone: [phone] P Offset 189 ms [facility] Work Phone: [phone] P Onset 146 ms [facility] Work Phone: [phone] MN Interval 148 ms [facility] Work Phone: [phone] Q Onset 220 ms [facility] Work Phone: [phone] QRS Count 18 beats [facility] Work Phone: [phone] QRS Duration 82 ms [facility] Work Phone: [phone] QT Interval 332 ms [facility] Work Phone: [phone] QTC Calculation(Bazett) 455 ms [facility] Work Phone: QTC Fredericia 410 ms [facility] Work Phone: R Maywood 39 degrees [facility] Work Phone: T Maywood 81 degrees [facility] Work Phone: T Offset 386 ms [facility] Work Phone: Ventricular Rate 113 BPM [facility] Work Phone: Sinus tachycardia 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 [facility] Comment on above: Auto resulted. [facility] Interpretation and review of laboratory results Normal [facility] ProcalcitoninOrdered By: Teresa Fine on 10-11-2023 Procalcitonin [Mass/Vol] 0.18 ng/mL High ANGEL F - 0.07 ng/mL [facility] Procalcitonin [Mass/Vol]Orde red By: Ismael Fine on 10-11-2023 Interpretation and review of laboratory results Abnormal [facility] Procalcitonin (PCT) results measured serially can [...] on immunomodulatory medications has not been evaluated. [facility] RSV PCRon 10-11-2023 RSV RNA ALICE+probe Ql (Resp) Not detected Not Detected [facility] RSV RNA ALICE+probe Ql (Resp)o n 10-11-2023 This assay is an FDA-cleared, in vitro diagnostic nucleic acid amplification test for the detection of RSV from nasopharyngeal specimens, and has been validated for use at [facility]. Negative results do not preclude RSV infections, and should not be used as the sole basis for diagnosis, treatment, or other management decisions. If Influenza A/B and RSV PCR results are negative, testing for Parainfluenza virus, Adenovirus and Metapneumovirus is routinely performed for pediatric oncology and intensive care inpatients at [facility], and is available on other patients by placing an add-on request. [facility] SARS-CoV-2 (COVID-19) RNA NA A+probe Ql (Resp)Ordered By: Rae Marcelino on 10-11-2023 Interpretation and review of laboratory results Abnormal [facility] This assay has received FDA Emergency [...] and has been validated for use at [facility]. Negative results do not preclude COVID-19 infections and should not be used as the sole basis for diagnosis, treatment, or other management decisions. [facility] SST TOPon 10-11-2023 Extra Tube Hold for add-ons. [facility] Comment on above: Auto resulted. [facility] Sars-CoV-2 PCR, SymptomaticO rdered By: Rae Marcelino on 10-11-2023 SARS-CoV-2 (COVID-19) RNA ALICE+probe Ql (Resp) Detected Abnormal Not Detected [facility] Tropinin I.cardiac panel Hig h sensitivity methodon 10-11-2023 Interpretation and review of laboratory results Abnormal [facility] Less than 99th percentile of normal [...] performed using a different testing methodology at [facility] than at other [facility]. Direct result comparisons should only be made within the same method. [facility] Interpretation and review of laboratory results Abnormal [facility] Less than 99th percentile of normal [...] performed using a different testing methodology at [facility] than at other [facility]. Direct result comparisons should only be made within the same method. [facility] Troponin I, High Sensitivity , Initialon 10-11-2023 Tropinin I.cardiac panel High sensitivity method 102 ng/L Critically high 0 - 20 ng/L [facility] Troponin, High Sensitivity, 1 Houron 10-11-2023 Tropinin I.cardiac panel High sensitivity method 354 ng/L Critically high 0 - 20 ng/L [facility] Comment on above: Previous result veri fied on 10/11/2023 0209 on specimen/case [id number] called with component [facility] for procedure Troponin I, High Sensitivity, Initial with value 102 ng/L. US Heart TransthoracicOrdere d By: Jose Enrique Molina on 10-11-2023 LA vol index A/L 25.1 [facility] Work Phone: LV A4C EF 45.6 [facility] Work Phone: LV biplane EF 44 [facility] Work Phone: LVIDd 3.70 [facility] Work Phone: LVOT diam 1.80 [facility] Work Phone: [facility] Work Phone: [place] [address] [phone], TRANSTHORACIC ECHOCARDIOGRAM REPORT Patient Name: ENOC Wills Physician: [id number] Jose Enrique Molina MD Study Date: 10/11/2023 Ordering Provider: [id number] RIVERA MRN/PID: [id number] Fellow: Nurse: Jana See RN Date of /Age: 2 1945 / 77 years Music Writer: Cecilio Gabriel RDCS Gender: M Additional Staff: Height: 170.18 cm Admit Date: Weight: 71.67 kg Admission Status: Inpatient - Routine BSA: 1.83 m2 Department Location: [address]-ICU Blood Pressure: 141 /71 mmHg Study Type: TRANSTHORACIC ECHO (TTE) COMPLETE Diagnosis/ICD: Acute on chronic systolic (congestive) heart failure (CHF)-I50.23 CPT Codes: Echo Complete w Full Doppler-68664 Study Detail: The following Echo studies were [...] LA Area A2C: 16.2 cm2 LA Major Maywood A4C: 5.3 cm LA Major [place] A2C: 5.0 cm LA Volume Index: 23.9 ml/m2 LA Vol A4C: 43.7 ml LA Vol A2C: 43.3 ml LV SYSTOLIC FUNCTION BY 2D PLANIMETRY (MOD): Normal Ranges: EF-A4C View: 45.6 % (>=55%) EF-A2C View: 40.9 % EF-Biplane: 44.2 % AORTIC VALVE: Normal Ranges: LVOT Diameter: 1.80 cm (1.8-2.4cm) RIGHT VENTRICLE: RV Basal 3.49 cm RV Mid 2.45 cm RV Major 7.8 cm [id number] Jose Enrique Molina MD Electronically signed on 10/11/2023 at 9:43:19 AM Final Jose Enrique Gardiner MD - 10/11/2023 [place] [address] [phone], TRANSTHORACIC ECHOCARDIOGRAM REPORT Patient Name: ENOC Wills Physician: [id number] Jose Enrique Molina MD Study Date: 10/11/2023 Ordering Provider: [id number] VERA RIVERA MRN/PID: [id number] Fellow: Nurse: Jana See RN Date of /Age: 2 1945 / 77 years Music Writer: Cecilio Gabriel RDCS Gender: M Additional Staff: Height: 170.18 cm Admit Date: Weight: 71.67 kg Admission Status: Inpatient - Routine BSA: 1.83 m2 Department Location: [facility] Blood Pressure: 141 /71 mmHg Study Type: TRANSTHORACIC ECHO (TTE) COMPLETE Diagnosis/ICD: Acute on chronic systolic (congestive) heart failure (CHF)-I50.23 CPT Codes: Echo Complete w Full Doppler-54016 Study Detail: The following Echo studies were [...] LA Area A2C: 16.2 cm2 LA Major [place] A4C: 5.3 cm LA Major [place] A2C: 5.0 cm LA Volume Index: 23.9 ml/m2 LA Vol A4C: 43.7 ml LA Vol A2C: 43.3 ml LV SYSTOLIC FUNCTION BY 2D PLANIMETRY (MOD): Normal Ranges: EF-A4C View: 45.6 % (>=55%) EF-A2C View: 40.9 % EF-Biplane: 44.2 % AORTIC VALVE: Normal Ranges: LVOT Diameter: 1.80 cm (1.8-2.4cm) RIGHT VENTRICLE: RV Basal 3.49 cm RV Mid 2.45 cm RV Major 7.8 cm [id number] Jose Enrique Molina MD Electronically signed on 10/11/2023 at 9:43:19 AM Final [facility] Work Phone: Urinalysis complete W Reflex Culture panel (U)on 10-11-2023 Hyaline casts Auto (Urine sed) [#/Area] OCCASIONAL Abnormal NONE /LPF [facility] Interpretation and review of laboratory results Abnormal [facility] RBC Auto (Urine sed) [#/Area] NONE NONE, 1-2, 3-5 /HPF [facility] WBC Auto (Urine sed) [#/Area] NONE 1-5, NONE /HPF [facility] Appearance (U) Clear Clear [facility] Work Phone: Bilirubin (U) [Mass/Vol] Negative NEGATIVE [facility] Work Phone: Color (U) Yellow Straw, Yellow [facility] Work Phone: Glucose Auto test strip (U) [Mass/Vol] >=500 (3+) Abnormal NEGATIVE mg/dL [facility] Work Phone: Interpretation and review of laboratory results Abnormal [facility] Work Phone: Ketones (U) [Mass/Vol] 5 (TRACE) Abnormal NEGAT FRANK mg/dL [facility] Work Phone: Leukocyte esterase Auto test strip Ql (U) Negative NEGATIVE [facility] Work Phone: [phone] Nitrite Auto test strip Ql (U) Negative NEGATIVE [facility] Work Phone: pH (U) 5.0 [pH] 5.0, 5.5, 6.0, 6.5, 7.0, 7.5, 8.0 [facility] Work Phone: Protein (U) [Mass/Vol] 100 (2+) Abnormal NEGAT FRANK mg/dL [facility] Work Phone: RBC (U) [#/Vol] Negative NEGATIVE [facility] Work Phone: Specific gravity (U) [Rel density] 1.014 1.005 - 1.035 [facility] Work Phone: Urobilinogen (U) [Mass/Vol] mg/dL NINF - 2.0 mg/dL [facility] Work Phone: [facility] Work Phone: XR Chest Single viewon 10-11 1. Diffuse interstitial and scattered hazy opacities. These are nonspecific and may represent atypical infectious or inflammatory process or possibly edema in the appropriate clinical setting. Component may also be related to chronic parenchymal changes. Recommend follow-up to resolution. Signed by: Kahlil Fagan 10/11/2023 1:33 AM Dictation workstation: [id number] [facility] Interpreted By: Kahlil Fagan, STUDY: XR CHEST 1 VIEW; 10/11/2023 1:30 am INDICATION: Signs/Symptoms:Cough . COMPARISON: Chest radiograph 11/04/2012 ACCESSION NUMBER(S): [id number] ORDERING CLINICIAN: AURY ROUSE FINDINGS: SUPPORT DEVICES: None. CARDIOMEDIASTINAL SILHOUETTE: Cardiomediastinal silhouette is normal in size and configuration. LUNGS: Diffuse interstitial prominence and scattered hazy opacities. No large pleural effusion or discernible pneumothorax. ABDOMEN: No remarkable upper abdominal findings. BONES: No acute osseous abnormality. [facility] Kahlil Fagan MD - 10/11/2023 Interpreted By: Kahlil Fagan, STUDY: XR CHEST 1 VIEW; 10/11/2023 1:30 am INDICATION: Signs/Symptoms:Cough . COMPARISON: Chest radiograph 11/04/2012 ACCESSION NUMBER(S): [id number] ORDERING CLINICIAN: AURY ROUSE FINDINGS: SUPPORT DEVICES: [...] Kahlil Fagan 10/11/2023 1:33 AM Dictation workstation: [id number] [facility] Work Phone: Radiology Study observation (narrative) [facility] Work Phone: XR Chest Single viewOrdered By: Kahlil Fagan on 10-11-2023 [facility] Work Phone: US RENAL BILATon 07-30-2023 US RENAL BILAT Patient Name: ENOC ARMANDO STUDY: US RENAL BILAT 07/30/2023 1:11 pm INDICATION: 77 y/o M with CKD N18.9: CKD (chronic kidney disease). COMPARISON: None. ACCESSION NUMBER(S): [id number] ORDERING CLINICIAN: AYANNA ALBERT TECHNIQUE: Grayscale imaging [...] hydronephrosis. Electronically signed by: TENNILLE MAHARAJ MD [facility] Therapy Communicationon 07-03 Therapy Communication Message ENOC ARMANDO was (D/C)- last seen: 01/25/23. Pt self-discharged from skilled Physical Therapy at this time. Pt was not able to be fully re-assessed due to self-discharging and not attending final re-evaluation appointment. Refer back in future if necessary. Signatures Electronically signed by : Carlene Whitehead PT; Jul 29 2023 5:06PM EST (Author) Normal [facility] MOBILITY Initial Visit (Nephrology)on 07-27-2023 Initial Visit (Nephrology) Diagnoses/Problems Arthritis (716.90) (M19.90) CKD (chronic kidney disease) (585.9) (N18.9) Diabetic neuropathy (250.60,357.2) (E11.40) HTN (hypertension) (401.9) (I10) T1DM (type 1 diabetes mellitus) (250.01) (E10.9) Orders Albumin, Urine Spot; Status:Active; Requested for:[id number]; Basic Metabolic Panel; Status:Active; Requested for:[id number]; Magnesium, Serum; Status:Active; Requested for:[id number]; Parathormone Intact, Serum; Status:Active; Requested for:[id number]; Phosphorus, Serum; Status:Active; Requested for:54Vyz7225; Ultrasound Kidney Bilateral; Status:Hold For - Scheduling; Requested for:[id number]; Radiologist to Determine Optimal Study : Y What are the patient's signs and symptoms? : CKD Uric Acid, Serum; Status:Active; Requested for:[id number]; Urinalysis; Status:Active; Requested for:32Mlh8489; Vitamin D 25-Hydroxy; Status:Need Information - ABN Disposition; Requested for:[id number]; Patient Discussion/Summary Issues: 1. 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 Hematologic/Lymphati c: does not bleed easily and does not [...] UNIT/ML Subcutaneous Solution Pen-injectorINJECT 18 UNIT Bedtime Lisinopril-hydroCHLO ROthiazide 20-12.5 MG Oral TabletTAKE 1 TABLET DAILY. Tamsulosin HCl - 0.4 MG Oral Capsule1 capsule daily Vitals Vital Signs Recorded: [id number] 02:48PMRecorded: 06Oug2463 02:45PM [id number], RVS740, LUE, Sitting [id number] (more content not included)... Normal [facility] MOBILITY Tobacco Screening.on 023 Fall risk assessment b) One or more fall s in the last year [facility] Work Phone: Tobacco use status [facility] a) Yes [facility] Work Phone: COMPREHENSIVE PANELon 2022 Albumin [Mass/Vol] 3.7 g/dL Normal 3.4 - 5.0 [facility] Comment on above: Performed By: #### C MP #### [address] [address] ALP [Catalytic activity/Vol] 80 U/L Normal 33 - 136 [facility] Comment on above: Performed By: #### C MP #### [address] [address] ALT [Catalytic activity/Vol] 12 U/L Normal 10 - 52 [facility] Comment on above: Result Comment: Twila ents treated with Sulfasalazine may generate falsely decreased results for ALT. Performed By: #### C MP #### [address] [address] Anion gap [Moles/Vol] 10 mmol/L Normal 10 - 20 [facility] Comment on above: Performed By: #### C MP #### [address] [address] AST [Catalytic activity/Vol] 16 U/L Normal 9 - 39 [facility] Comment on above: Performed By: #### C MP #### [address] [address] Bilirubin [Mass/Vol] 0.5 mg/dL Normal 0.0 - 1.2 [facility] Comment on above: Performed By: #### C MP #### [address] [address] Calcium [Mass/Vol] 8.9 mg/dL Normal 8.6 - 10.3 [facility] Comment on above: Performed By: #### C MP #### [address] [address] Chloride [Moles/Vol] 107 mmol/L Normal 98 - 107 [facility] Comment on above: Performed By: #### C MP #### [address] [address] Creatinine [Mass/Vol] 1.85 mg/dL High 0.50 - 1.30 [facility] Comment on above: Performed By: #### C MP #### [address] [address] GFR/1.73 sq M.predicted among non-blacks MDRD (S/P/Bld) [Vol rate/Area] 36 mL/min/{1.73_m2} Abnormal >90 [facility] Comment on above: Result Comment: CALC ULATIONS OF ESTIMATED GFR ARE PERFORMED USING THE 2020 CKD-EPI STUDY REFIT EQUATION WITHOUT THE RACE VARIABLE FOR THE IDMS-TRACEABLE CREATININE METHODS. https://jasn.asnjournals.org/content/early//ASN.20 92510298 Performed By: #### C MP #### [address] [address] Glucose [Mass/Vol] 347 mg/dL High 74 - 99 [facility] Comment on above: Performed By: #### C MP #### [address] [address] HCO3 (Bld) [Moles/Vol] 27 mmol/L Normal 21 - 32 [facility] Comment on above: Performed By: #### C MP #### [address] [address] Potassium [Moles/Vol] 4.4 mmol/L Normal 3.5 - 5.3 [facility] Comment on above: Performed By: #### C MP #### [address] [address] Protein [Mass/Vol] 6.0 g/dL Low 6.4 - 8.2 [facility] Comment on above: Performed By: #### C MP #### [address] [address] Sodium [Moles/Vol] 140 mmol/L Normal 136 - 145 [facility] Comment on above: Performed By: #### C MP #### [address] [address] Urea nitrogen [Mass/Vol] 31 mg/dL High 6 - 23 [facility] Comment on above: Performed By: #### C MP #### [address] [address] HEMOGLOBIN A1Con 06-11-2023 Glucose [Mass/Vol] 171 mg/dL Normal [facility] Comment on above: Performed By: #### H BA1E #### [address] [address] HbA1c (Bld) [Mass fraction] 7.6 % Abnormal [facility] Comment on above: Result Comment: Diag nosis of Diabetes-Adults Non-Diabetic: < or = 5.6% Increased risk for developing diabetes: 5.7-6.4% Diagnostic of diabetes: > or = 6.5% . Monitoring of Diabetes Age (y) Therapeutic Goal (%) Adults: >18 <7.0 Pediatrics: 13-18 <7.5 7-12 <8.0 0- 6 7.5-8.5 [place] [employer]. Diabetes Care 33(S1), Nov 2009. Performed By: #### H BA1E #### [address] [address] ALBUMIN, URINE SPOTon 2022 ALBUMIN,URINE 195.3 mg/L Normal Not Established [facility] Comment on above: Performed By: #### A LBSP ####[id number] [place] [address] ALBUMIN/CREAT RATIO 212.5 ug/mg musical therapist High 0.0 - 30.0 [facility] Comment on above: Performed By: #### A LBSP ####[id number] [place] [address] CREATININE,URINE 91.9 mg/dL Normal 20.0 - 370.0 [facility] Comment on above: Performed By: #### A LBSP ####[id number] [place] [address] CBC AND DIFFERENTIALon 02-12 % AUTOMATED IMMATURE GRAN 0.3 % Normal 0.0 - 0.9 [facility] Comment on above: Result Comment: Arielle ture Granulocyte Count (IG) includes promyelocytes, myelocytes and metamyelocytes but does not include bands. Percent differential counts (%) should be interpreted in the context of the absolute cell counts (cells/L). Performed By: #### C BCDF #### [address] [address] Basophils (Bld) [#/Vol] 0.09 10*3/uL Normal 0.00 - 0.1 0 [facility] Comment on above: Performed By: #### C BCDF #### [address] [address] Basophils/100 WBC (Bld) 1.2 % Normal 0.0 - 2.0 [facility] Comment on above: Performed By: #### C BCDF #### [address] [address] Eosinophils (Bld) [#/Vol] 0.40 10*3/uL Normal 0.00 - 0 .40 [facility] Comment on above: Performed By: #### C BCDF #### [address] [address] Eosinophils/100 WBC (Bld) 5.2 % Normal 0.0 - 6.0 [facility] Comment on above: Performed By: #### C BCDF #### [address] [address] Erythrocyte distribution width (RBC) [Ratio] 13.1 % Normal 11.5 - 14.5 [facility] Comment on above: Performed By: #### C BCDF #### [address] [address] Hematocrit (Bld) [Volume fraction] 39.5 % Low 41.0 - 52.0 [facility] Comment on above: Performed By: #### C BCDF #### [address] [address] Hemoglobin (Bld) [Mass/Vol] 12.6 g/dL Low 13.5 - 17.5 [facility] Comment on above: Performed By: #### C BCDF #### [address] [address] Lymphocytes (Bld) [#/Vol] 1.68 10*3/uL Normal 0.80 - 3 .00 [facility] Comment on above: Performed By: #### C BCDF #### [address] [address] Lymphocytes/100 WBC (Bld) 21.9 % Normal 13.0 - 44. 0 [facility] Comment on above: Performed By: #### C BCDF #### [address] [address] MCHC (RBC) [Mass/Vol] 31.9 g/dL Low 32.0 - 36.0 [facility] Comment on above: Performed By: #### C BCDF #### [address] [address] MCV (RBC) [Entitic vol] 95 fL Normal 80 - 100 [facility] Comment on above: Performed By: #### C BCDF #### [address] [address] Monocytes (Bld) [#/Vol] 0.57 10*3/uL Normal 0.05 - 0.8 0 [facility] Comment on above: Performed By: #### C BCDF #### [address] [address] Monocytes/100 WBC (Bld) 7.4 % Normal 2.0 - 10.0 [facility] Comment on above: Performed By: #### C BCDF #### [address] [address] Neutrophils (Bld) [#/Vol] 4.91 10*3/uL Normal 1.60 - 5 .50 [facility] Comment on above: Result Comment: Perc ent differential counts (%) should be interpreted in the context of the absolute cell counts (cells/L). Performed By: #### C BCDF #### [address] [address] Neutrophils/100 WBC (Bld) 64.0 % Normal 40.0 - 80. 0 [facility] Comment on above: Performed By: #### C BCDF #### [address] [address] Platelets (Bld) [#/Vol] 229 10*3/uL Normal 150 - 450 [facility] Comment on above: Performed By: #### C BCDF #### [address] [address] RBC 4.18 x10E12/L Low 4.50 - 5.90 [facility] Comment on above: Performed By: #### C BCDF #### [address] [address] WBC (Bld) [#/Vol] 7.7 10*3/uL Normal 4.4 - 11.3 [facility] Comment on above: Performed By: #### C BCDF #### [address] [address] COMPREHENSIVE PANELon 2022 Albumin [Mass/Vol] 4.0 g/dL Normal 3.4 - 5.0 [facility] Comment on above: Performed By: #### C MP #### [address] [address] ALP [Catalytic activity/Vol] 79 U/L Normal 33 - 136 [facility] Comment on above: Performed By: #### C MP #### [address] [address] ALT [Catalytic activity/Vol] 12 U/L Normal 10 - 52 [facility] Comment on above: Result Comment: Twila ents treated with Sulfasalazine may generate falsely decreased results for ALT. Performed By: #### C MP #### [address] [address] Anion gap [Moles/Vol] 10 mmol/L Normal 10 - 20 [facility] Comment on above: Performed By: #### C MP #### [address] [address] AST [Catalytic activity/Vol] 13 U/L Normal 9 - 39 [facility] Comment on above: Performed By: #### C MP #### [address] [address] Bilirubin [Mass/Vol] 0.6 mg/dL Normal 0.0 - 1.2 [facility] Comment on above: Performed By: #### C MP #### [address] [address] Calcium [Mass/Vol] 9.4 mg/dL Normal 8.6 - 10.3 [facility] Comment on above: Performed By: #### C MP #### [address] [address] Chloride [Moles/Vol] 105 mmol/L Normal 98 - 107 [facility] Comment on above: Performed By: #### C MP #### [address] [address] Creatinine [Mass/Vol] 1.69 mg/dL High 0.50 - 1.30 [facility] Comment on above: Performed By: #### C MP #### [address] [address] GFR/1.73 sq M.predicted among non-blacks MDRD (S/P/Bld) [Vol rate/Area] 41 mL/min/{1.73_m2} Abnormal >90 [facility] Comment on above: Result Comment: CALC ULATIONS OF ESTIMATED GFR ARE PERFORMED USING THE 2020 CKD-EPI STUDY REFIT EQUATION WITHOUT THE RACE VARIABLE FOR THE IDMS-TRACEABLE CREATININE METHODS. https://jasn.asnjournals.org/content//ASN.20 58542703 Performed By: #### C MP #### [address] [address] Glucose [Mass/Vol] 253 mg/dL High 74 - 99 [facility] Comment on above: Performed By: #### C MP #### [address] [address] HCO3 (Bld) [Moles/Vol] 28 mmol/L Normal 21 - 32 [facility] Comment on above: Performed By: #### C MP #### [address] [address] Potassium [Moles/Vol] 4.8 mmol/L Normal 3.5 - 5.3 [facility] Comment on above: Performed By: #### C MP #### [address] [address] Protein [Mass/Vol] 6.4 g/dL Normal 6.4 - 8.2 [facility] Comment on above: Performed By: #### C MP #### [address] [address] Sodium [Moles/Vol] 138 mmol/L Normal 136 - 145 [facility] Comment on above: Performed By: #### C MP #### [address] [address] Urea nitrogen [Mass/Vol] 25 mg/dL High 6 - 23 [facility] Comment on above: Performed By: #### C MP #### [address] [address] HEMOGLOBIN A1Con 02-12-2023 Glucose [Mass/Vol] 174 mg/dL Normal [facility] Comment on above: Performed By: #### H BA1E #### [address] [address] HbA1c (Bld) [Mass fraction] 7.7 % Abnormal [facility] Comment on above: Result Comment: Diag nosis of Diabetes-Adults Non-Diabetic: < or = 5.6% Increased risk for developing diabetes: 5.7-6.4% Diagnostic of diabetes: > or = 6.5% . Monitoring of Diabetes Age (y) Therapeutic Goal (%) Adults: >18 <7.0 Pediatrics: 13-18 <7.5 7-12 <8.0 0- 6 7.5-8.5 [employer]. Diabetes Care 33(S1), Nov 2009. Performed By: #### H BA1E #### [address] [address] LIPID PANEL (CORONARY RISK 2 )on 02-12-2023 Cholesterol [Mass/Vol] 154 mg/dL Normal 0 - 199 [facility] Comment on above: Result Comment: . AGE [...] dosing. Performed By: #### L IPID #### [address] [address] Cholesterol in HDL [Mass/Vol] 43.0 mg/dL Normal [facility] Comment on above: Result Comment: . AGE VERY LOW LOW NORMAL HIGH 0-19 Y < 35 < 40 40-45 ---- 20-24 Y ---- < 40 >45 ---- >24 Y ---- < 40 40-60 >60 . Performed By: #### L IPID #### [address] [address] Cholesterol in LDL [Mass/Vol] 96 mg/dL Normal 0 - 99 [facility] Comment on above: Result Comment: . NEAR BORD AGE DESIRABLE OPTIMAL HIGH HIGH VERY HIGH 0-19 Y 0 - 109 --- 110-129 >/= 130 ---- 20-24 Y 0 - 119 --- 120-159 >/= 160 ---- >24 Y 0 - 99 100-129 130-159 160-189 >/=190 . Performed By: #### L IPID #### [address] [address] Cholesterol in VLDL [Mass/Vol] 15 mg/dL Normal 0 - 40 [facility] Comment on above: Performed By: #### L IPID #### [address] [address] Cholesterol.total/Cholest santos in HDL [Mass ratio] 3.6 {ratio} Normal [facility] Comment on above: Result Comment: REF VALUES DESIRABLE < 3.4 HIGH RISK > 5.0 Performed By: #### L IPID #### [address] [address] Triglyceride [Mass/Vol] 77 mg/dL Normal 0 - 149 [facility] Comment on above: Result Comment: . [...] dosing. Performed By: #### L IPID #### [address] [address] PROSTATE SPEC.AG,SCREENon PROSTATE SPEC.AG,SCREEN 3.14 ng/mL Normal 0.00 - 4.00 [facility] Comment on above: Result Comment: The FDA requires that the method used for PSA assay be reported to the physician. Values obtained with different assay methods must not be used interchangeably. This test was performed at [facility] using the [employer] PSA assay is a two-site immunoenzymatic sandwich assay. The assay is approved for measurement of prostate-specific antigen (PSA)in serum and may be used in conjunction with a digital rectal examination in men 50 years and older as an aid in detection of prostate cancer. 3-Rmujj-slkomcxuf inhibitors (e.g. Proscar, Finasteride, Avodart, Dutasteride and Alma Rosa) for the treatment of BPH have been shown to lower PSA levels by an average of 50% after 6 months of treatment. Performed By: #### P SAS #### [address] [address] THYROXINE,FREEon 02-12-2023 THYROXINE,FREE 1.16 ng/dL High 0.61 - 1.12 [facility] Comment on above: Result Comment: Thyr oxine Free testing is performed using different testing methodology at [facility] than at other [facility]. Direct result comparisons should only [...] draw. Performed By: #### T 4FRE #### [address] [address] TSHon 02-12-2023 TSH Qn 0.73 m[IU]/L Normal 0.44 - 3.98 [facility] Comment on above: Result Comment: TSH testing is performed using different testing methodology at [facility] than at other [facility]. Direct result comparisons should only be made within the same method. Performed By: #### T SH2 #### [address] [address] PT Progress Noteon 3 PT Progress Note [...] interventions include: aquatic therapy, cryotherapy, dry needling, education/instructio n, gait training, home program, hot pack, kinesiotaping, manual therapy, self care/home management, therapeutic exercises and IASTM/cupping. Frequency and duration: 2 time(s) a week, for 4 weeks, for 8 visits . the patient will continue therapy at [place]. Potential to achieve rehab goals is fair: [...] Adult Risk Screening There are no spiritual/cultural practices/values/nee ds that are important to know Initial Fall Risk Screening: ENCO has not fallen in the last 6 [...] Declined. Insurance Insurance reviewed Visit number: 10 MCR Evaluating therapist Shoaib Bhandari PT. The [...] code time is 30 minutes. Therapeutic exercise (48001):. Not Today 01/25/23 NuStep 5? Slant board [...] 10 x 10? hold (N). Manual Therapy (52306): timed minutes 15, units 1 . STW to glutes and QL and IT band, hip flexor. Modalities: untimed minutes 15, units 1 . IFC to R Lumbar/Glute region x 10' in S/L w/ MHP. 'Scores and Scales' Signatures Electronically signed by : Zoila Lopez WOODWORKING CRAFTSMAN; Jan 25 2023 5:14PM EST (Author) Electronically signed by : Carlene Whitehead, PT; Feb 23 2023 10:49PM EST Normal [facility] PT Progress Noteon 3 PT Progress Note [...] interventions include: aquatic therapy, cryotherapy, dry needling, education/instructio n, gait training, home program, hot pack, kinesiotaping, manual therapy, self care/home management, therapeutic exercises and IASTM/cupping. Frequency and duration: 2 time(s) a week, for 4 weeks, for 8 visits . the patient will continue therapy at [place]. Potential to achieve rehab goals is fair: [...] Adult Risk Screening There are no spiritual/cultural practices/values/nee ds that are important to know Initial Fall [...] code time is 35 minutes. Therapeutic exercise (52570): timed minutes 20, units 1 . Pt [...] chops wit (more content not included)... Normal [employer] Therapy Re-eval Noteon 01-18 Therapy Re-eval Note [...] interventions include: aquatic therapy, cryotherapy, dry needling, education/instructio n, gait training, home program, hot pack, kinesiotaping, manual therapy, self care/home management, therapeutic exercises and IASTM/cupping. Frequency and duration: 2 time(s) a week, for 4 weeks, for 8 visits . the patient will continue therapy at [place]. Potential to achieve rehab goals is fair: [...] Adult Risk Screening There are no spiritual/cultural practices/values/nee ds that are important to know Initial Fall [...] code time is 35 minutes. Therapeutic exercise (56116): timed minutes 20, units 1 . Pt [...] disc chops (more content not included)... Normal [facility] PT Progress Noteon 3 [...] interventions include: aquatic therapy, cryotherapy, dry needling, education/instructio n, gait training, home program, hot pack, kinesiotaping, manual therapy, self care/home management, therapeutic exercises and IASTM/cupping. Frequency and duration: 2 time(s) a week, for 4 weeks, for 8 visits . the patient will continue therapy at [place]. Potential to achieve rehab goals is fair: [...] Adult Risk Screening There are no spiritual/cultural practices/values/nee ds that are important to know Initial Fall [...] code time is 38 minutes. Therapeutic exercise (93610): timed minutes 26, units 2 . NuStep [...] 30? D/C to HEP . Manual Therapy (62558): timed minutes 12, units 1 . STW to glutes and QL and IT band. Provided today:. 12/25/22 [id number] Provided and reviewed HEP, patient demosntrated good understanding. 'Scores and Scales' Signatures Electronically signed by : Chaya Morrow (more content not included)... Normal [facility] PT Progress Noteon 3 PT Progress Note [...] interventions include: aquatic therapy, cryotherapy, dry needling, education/instructio n, gait training, home program, hot pack, kinesiotaping, manual therapy, self care/home management, therapeutic exercises and IASTM/cupping. Frequency and duration: 2 time(s) a week, for 4 weeks, for 8 visits . the patient will continue therapy at [place]. Potential to achieve rehab goals is fair: [...] Adult Risk Screening There are no spiritual/cultural practices/values/nee ds that are important to know Initial Fall [...] code time is 38 minutes. Therapeutic exercise (58041): timed minutes 26, units 2 . NuStep [...] 30? D/C to HEP . Manual Therapy (47365): timed minutes 12, units 1 . STW to glutes and QL and IT band. Provided today:. 12/25/22 [id number] Provided and reviewed HEP, patient demosntrated good understanding. 'Scores and Scales' Signatures Electronically signed by : Chaya Chan, WOODWORKING CRAFTSMAN; Jan 13 2023 11:01AM EST (Author) Electronically signed by : Carlene Whitehead, PT; Jan 17 2023 3:07PM EST Normal [facility] PT Progress Noteon 3 PT Progress Note [...] interventions include: aquatic therapy, cryotherapy, dry needling, education/instructio n, gait training, home program, hot pack, kinesiotaping, manual therapy, self care/home management, therapeutic exercises and IASTM/cupping. Frequency and duration: 2 time(s) a week, for 4 weeks, for 8 visits . the patient will continue therapy at [place]. Potential to achieve rehab goals is fair: [...] Adult Risk Screening There are no spiritual/cultural practices/values/nee ds that are important to know Initial Fall [...] code time is 43 minutes. Therapeutic exercise (53516): timed minutes 32, units 2 . NuStep [...] x 10 Green band . Manual Therapy (55828): timed minutes 11, units 1 . STW to glutes and QL 10'. Provided today:. 12/25/22 [id number] Provided and reviewed HEP, patient demosntrated good understanding. 'Scores and Scales' Signatures Electronically signed by : Chaya Chan, WOODWORKING CRAFTSMAN; Jan 08 2023 10:51AM EST (Author) Electronically [...] interventions include: aquatic therapy, cryotherapy, dry needling, education/instructio n, gait training, home program, hot pack, kinesiotaping, manual therapy, self care/home management, therapeutic exercises and IASTM/cupping. Frequency and duration: 2 time(s) a week, for 4 weeks, for 8 visits . the patient will continue therapy at [place]. 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 Progress with POC, as tolerated. Assessment Tightness along the ITB and QL continues. Palpable spams in both regions with with STW. Fair trunk flexibility with SKTC. Adult Risk Screening There are no spiritual/cultural practices/values/nee ds that are important to know Initial Fall [...] code time is 44 minutes. Therapeutic exercise (67987): timed minutes 34, units 2 . NuStep [...] 10 Green band (N) . Manual Therapy (66852): timed minutes 10, units 1 . STW to glutes and QL 10'. Provided today:. 12/25/22 [id number] Provided and reviewed HEP, patient demosntrated good understanding. 'Scores and Scales' Signatures Electronically signed by : Zoila Lopez WOODWORKING CRAFTSMAN; Jan 06 2023 12:41PM EST (Author) Electronically [...] interventions include: aquatic therapy, cryotherapy, dry needling, education/instructio n, gait training, home program, hot pack, kinesiotaping, manual therapy, self care/home management, therapeutic exercises and IASTM/cupping. Frequency and duration: 2 time(s) a week, for 4 weeks, for 8 visits . the patient will continue therapy at [place]. Potential to achieve rehab goals is fair: [...] Adult Risk Screening There are no spiritual/cultural practices/values/nee ds that are important to know Initial Fall [...] Declined. Insurance Insurance reviewed Visit number: 4 MCR Evaluating therapist Shoaib Bhandari PT. The [...] code time is 44 minutes. Therapeutic exercise (36159): timed minutes 34, units 2 . NuStep [...] x 10 orange band . Manual Therapy (88197): timed minutes 10, units 1 . STW to glutes and QL 10'. Provided today:. 12/25/22 [id number] Provided and reviewed HEP, patient demosntrated good understanding. 'Scores and Scales' Signatures Electronically signed by : Zoila Lopez WOODWORKING CRAFTSMAN; Jan 01 2023 12:56PM EST (Author) Electronically signed by : Carlene Whitehead, PT; Jan 17 2023 3:06PM EST Normal [facility] PT Progress Noteon 3 PT Progress Note [...] interventions include: aquatic therapy, cryotherapy, dry needling, education/instructio n, gait training, home program, hot pack, kinesiotaping, manual therapy, self care/home management, therapeutic exercises and IASTM/cupping. Frequency and duration: 2 time(s) a week, for 4 weeks, for 8 visits . the patient will continue therapy at [place]. Potential to achieve rehab goals is fair: [...] Adult Risk Screening There are no spiritual/cultural practices/values/nee ds that are important to know Initial Fall [...] code time is 44 minutes. Therapeutic exercise (52071): timed minutes 34, units 2 . NuStep [...] x 10 orange band . Manual Therapy (58464): timed minutes 10, units 1 . STW to glutes and QL 10'. Provided today:. 12/25/22 [id number] Provided and reviewed HEP, patient demosntrated good understanding. 'Scores and Scales' Signatures Electronically signed by : Zoila Lopez, WOODWORKING CRAFTSMAN; Dec 30 2022 5:01PM EST (Author) Electronically signed by : Carlene Whitehead, PT; Jan 17 2023 3:06PM EST Normal [facility] PT Progress Noteon 3 PT Progress Note [...] interventions include: aquatic therapy, cryotherapy, dry needling, education/instructio n, gait training, home program, hot pack, kinesiotaping, manual therapy, self care/home management, therapeutic exercises and IASTM/cupping. Frequency and duration: 2 time(s) a week, for 4 weeks, for 8 visits . the patient will continue therapy at [place]. 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 Progress with POC, as tolerated. Assessment Patient identified by name and date of . Patient demonstrated good understanding of exercises and stretching with cues to complete after instruction. He presented with palpable tension in gluts and QL and paraspinals that responded well to STW. Adult Risk Screening There are no spiritual/cultural practices/values/nee ds that are important to know Initial Fall [...] transferred from Shoaib Bhandari PT to Carlene T DPT effective as of 12/21/22 M51.36; low [...] code time is 41 minutes. Therapeutic exercise (70777): timed minutes 31, units 2 . NuStep 5? start wall lean n mini squat x10 LTR x10 5? hold Piriformis stretch 3 x 30? Supine QL stretch 3 x 30? Hip flex stretch EOB TrA x10 5? hold Hooklying TrA/hip add ball 2 x 10 3? hold Hooklying TrA/hip abd 2 x 10 orange band . Manual Therapy (30924): timed minutes 10, units 1 . STW to gluts and QL. Provided today:. 12/25/22 [id number] Provided and reviewed HEP, patient demosntrated good understanding. 'Scores and Scales' Signatures Electronically signed by : Chaya Chan, WOODWORKING CRAFTSMAN; Dec 25 2022 10:14AM EST (Author) Electronically signed by : Carlene Whitehead, PT; Jan 17 2023 3:06PM EST Normal [facility] PT Initial Evaluationon 12-03 PT Initial Evaluation [...] interventions include: aquatic therapy, cryotherapy, dry needling, education/instructio n, gait training, home program, hot pack, kinesiotaping, manual therapy, self care/home management, therapeutic exercises and IASTM/cupping. Frequency and duration: 2 time(s) a week, for 4 weeks, for 8 visits . the patient will continue therapy at [place]. 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 Assessment At least a 5 yr HX of LBP (previous HX of sciatica). No recent film studies have been done. He will be a low fall risk. The patient will continue his therapy at [place]. Physical findings include limited trunk ROM with [...] Adult Risk Screening There are no spiritual/cultural practices/values/nee ds that are important to know Initial Fall [...] Impact Care:. ID confirmed with B-day; speaks haitian No obtrusive barriers to learning identified/observed. Objective [...] am Time (more content not included)... Normal HIGH MOBILITY US DOPPLER CAROTIDOrdered By : Mary Vargas on 02-26-2021 Patient Info Name: ENOC ARMANDO Age: 75 years : 1945 Gender: Male Exam Date: 02/26/2021 1:55 PM Patient Status: Outpatient Soft Tile Setter: Melissa Swift BS, RDMS (AB), RVT Referring Physician: MARY VARGAS ; Indications I65.23 - Occlusion and stenosis of bilateral carotid arteries Procedure Description 43344 Duplex examination using B-mode, color and spectral [...] to be warranted. Clinical correlation advised. Measurements Name Value Right PSV Right Prox CCA PSV 97 cm/s Right Mid CCA PSV 93 cm/s Right Distal CCA PSV 97 cm/s Right Prox ICA PSV 117 cm/s Right Mid ICA PSV 114 cm/s Right Distal ICA PSV 110 cm/s Right ECA PSV 165 cm/s Right Vert PSV 94 cm/s BC PSV 138 cm/s Right Prox SCA PSV 199 cm/s Rt ICA/CCA Ratio 1.2 Measurements Name Value Right EDV Right Prox CCA EDV 10 cm/s Right Mid CCA EDV 14 cm/s Right Distal CCA EDV 14 cm/s Right Prox ICA EDV 25 cm/s Right Mid ICA EDV 21 cm/s Right Distal ICA EDV 23 cm/s Right ECA EDV 16 cm/s Right Vert EDV 17 cm/s BC EDV 4 cm/s Right Prox SCA EDV 1 cm/s Measurements Name Value Left PSV Left Prox CCA PSV 98 cm/s Left Mid CCA PSV 103 cm/s Left Distal CCA PSV 104 cm/s Left Prox ICA PSV 274 cm/s Left Mid ICA PSV 165 cm/s Left Distal ICA PSV 117 cm/s Left ECA PSV 466 cm/s Left Vert PSV 101 cm/s Left Prox SCA PSV 273 cm/s Lt ICA/CCA Ratio 2.6 Measurements Name Value Left EDV Left Prox CCA EDV 15 cm/s Left [...] noted in the (more content not included)... [facility] Interface, Rad In Heartlab Xper Echopacs - 02/26/2021 4:33 PM EDT Patient Info Name: ENOC ARMANDO Age: 75 years : 1945 Gender: Male Exam Date: 02/26/2021 1:55 PM Patient Status: Outpatient Soft Tile Setter: Melissa Swift, TAMMI, RDMS (AB), RVT Referring Physician: MARY VARGAS ; Indications I65.23 - Occlusion and stenosis of bilateral carotid arteries Procedure Description 10846 Duplex examination using B-mode, color and spectral [...] to be warranted. Clinical correlation advised. Measurements Name Value Right PSV Right Prox CCA PSV 97 cm/s Right Mid CCA PSV 93 cm/s Right Distal CCA PSV 97 cm/s Right Prox ICA PSV 117 cm/s Right Mid ICA PSV 114 cm/s Right Distal ICA PSV 110 cm/s Right ECA PSV 165 cm/s Right Vert PSV 94 cm/s BC PSV 138 cm/s Right Prox SCA PSV 199 cm/s Rt ICA/CCA Ratio 1.2 Measurements Name Value Right EDV Right Prox CCA EDV 10 cm/s Right Mid CCA EDV 14 cm/s Right Distal CCA EDV 14 cm/s Right Prox ICA EDV 25 cm/s Right Mid ICA EDV 21 cm/s Right Distal ICA EDV 23 cm/s Right ECA EDV 16 cm/s Right Vert EDV 17 cm/s BC EDV 4 cm/s Right Prox SCA EDV 1 cm/s Measurements Name Value Left PSV Left Prox CCA PSV 98 cm/s Left Mid CCA PSV 103 cm/s Left Distal CCA PSV 104 cm/s Left Prox ICA PSV 274 cm/s Left Mid ICA PSV 165 cm/s Left Distal ICA PSV 117 cm/s Left ECA PSV 466 cm/s Left Vert PSV 101 cm/s Left Prox SCA PSV 273 cm/s Lt ICA/CCA Ratio 2.6 Measurements Name Value Left EDV Left Prox CCA EDV 15 cm/s Left [...] JO-ANN Nguyen DO on 02/26/2021 04:31 PM [facility] Auto Diffon 07-04-2019 Basophils (Bld) [#/Vol] 0.1 E3/mcL Normal 0.0-0.2 [facility] Comment on above: Order Comment: Order Added by Discern Expert. Performed By: #### 2 [id number] #### MIKE Zazueta [address] [place] [address] Basophils/100 WBC (Bld) 1.2 % Normal 0.0-2.0 [facility] Comment on above: Order Comment: Order Added by Discern Expert. Performed By: #### 2 [id number] #### MIKE [employer] [address] [place] [address] Eos Absolute 0.2 E3/mcL Normal 0.0-0.7 [facility] Comment on above: Order Comment: Order Added by Discern Expert. Performed By: #### 2 238175 #### MIKE [employer] [address] [place] [address] Eosinophils/100 WBC (Bld) 2.0 % Normal 0.0-11.0 [facility] Comment on above: Order Comment: Order Added by Discern Expert. Performed By: #### 2 588209 #### MIKE [employer] [address] [place] [address] Lymphocytes (Bld) [#/Vol] 1.7 E3/mcL Normal 1.2-3.4 [facility] Comment on above: Order Comment: Order Added by Discern Expert. Performed By: #### 2 726115 #### MIKE [employer] [address] [place] [address] 12126 Lymphocytes/100 WBC (Bld) 20.9 % Normal 20.0-55.0 [facility] Comment on above: Order Comment: Order Added by Discern Expert. Performed By: #### 2 637924 #### MIKE [employer] [address] [place] [address] Ada Absolute 0.7 E3/mcL Normal 0.0-0.7 [facility] Comment on above: Order Comment: Order Added by Discern Expert. Performed By: #### 2 156919 #### MIKE [address] [place] [address] Monocytes/100 WBC (Bld) 8.0 % Normal 0.0-10.0 [facility] Comment on above: Order Comment: Order Added by Discern Expert. Performed By: #### 2 450645 #### MIKE [employer] [address] [place] [address] 34972 Neutro Absolute 5.5 E3/mcL Normal 1.4-6.5 [facility] Comment on above: Order Comment: Order Added by Discern Expert. Performed By: #### 2 844980 #### MIKE Rodriguez[address] [address] Neutro Auto 67.9 % Normal 37.0-75.0 [facility] Comment on above: Order Comment: Order Added by Discern Expert. Performed By: #### 2 487460 #### MIKE Rodriguez[address] [address] CBC w/ Auto Diffon 9 Erythrocyte distribution width (RBC) [Ratio] 13.3 % Normal 11.5-14.5 [facility] Comment on above: Performed By: #### 2 829780 #### MIKE [address] [place] [address] Hematocrit (Bld) [Volume fraction] 40.4 % Low 42.0-52.0 [facility] Comment on above: Performed By: #### 2 179782 #### MIKEAnabelle Rodriguez[address] [address] Hemoglobin (Bld) [Mass/Vol] 13.6 g/dL Normal 13.5-18.0 [facility] Comment on above: Performed By: #### 2 435377 #### MIKE Rodriguez[address] [address] MCH (RBC) [Entitic mass] 31.6 pg High 27.0-31.0 [facility] Comment on above: Performed By: #### 2 855843 #### MIKE [employer] [address] [place] [address] MCHC (RBC) [Mass/Vol] 33.7 g/dL Normal 33.0-37.0 [facility] Comment on above: Performed By: #### 2 798029 #### MIKE [employer] [address] [place] [address] MCV (RBC) [Entitic vol] 93.8 fL Normal 78.0-100.0 [facility] Comment on above: Performed By: #### 2 404903 #### MIKE [employer] [address] [place] [address] Platelet mean volume (Bld) [Entitic vol] 10.2 fL Normal 7.4-11.0 [facility] Comment on above: Performed By: #### 2 780783 #### MIKE [employer] [address] [place] [address] Platelets (Bld) [#/Vol] 218 E3/mcL Normal 130-400 [facility] Comment on above: Performed By: #### 2 256961 #### MIKE [employer] [address] [place] [address] RBC (Bld) [#/Vol] 4.31 E6/mcL Normal 3.90-6.10 [facility] Comment on above: Performed By: #### 2 739064 #### MIKEAnabelle [employer]Chem [address] [place] [address] WBC (Bld) [#/Vol] 8.1 E3/mcL Normal 3.6-11.0 [facility] Comment on above: Performed By: #### 2 062066 #### MIKE [employer] [address] [place] [address] CMPon 07-04-2019 Albumin [Mass/Vol] 4.2 g/dL Normal 3.4-5.0 [facility] Comment on above: Performed By: #### 2 711536 #### MIKE [employer] [address] [place] [address] Albumin/Globulin [Mass ratio] 1.8 {ratio} Normal 1.1-1.9 [facility] Comment on above: Performed By: #### 2 934670 #### MIKE [employer] [address] [place] [address] Alk Phos 81 Int._Unit/L Normal 33-136 [facility] Comment on above: Performed By: #### 2 222512 #### MIKE [employer] [address] [place] [address] ALT [Catalytic activity/Vol] 15 Int._Unit/L Normal 10-52 [facility] Comment on above: Performed By: #### 2 547283 #### MIKE [employer] [address] [place] [address] Anion gap [Moles/Vol] 12 mmol/L Normal 10-20 [facility] Comment on above: Performed By: #### 2 739625 #### MIKE [employer] [address] [place] [address] AST [Catalytic activity/Vol] 18 Int._Unit/L Normal 9-39 [facility] Comment on above: Performed By: #### 2 840246 #### MIKE [employer] [address] [place] [address] Bili Total 0.35 mg/dL Normal 0.00-1.20 [facility] Comment on above: Performed By: #### 2 715135 #### [employer]KE [employer] [address] [place] [address] Calcium [Mass/Vol] 9.5 mg/dL Normal 8.6-10.3 [facility] Comment on above: Performed By: #### 2 967724 #### MIKE [employer] [address] [place] [address] Chloride [Moles/Vol] 108 mmol/L High 98-107 [facility] Comment on above: Performed By: #### 2 890365 #### MIKE [employer] [address] [place] [address] CO2 [Moles/Vol] 27.0 mmol/L Normal 21.0-32.0 [facility] Comment on above: Performed By: #### 2 697196 #### MIKE [employer] [address] [place] [address] Creatinine [Mass/Vol] 1.0 mg/dL Normal 0.5-1.3 [facility] Comment on above: Performed By: #### 2 605920 #### MIKE [employer] [address] [place] [address] Globulin (S) [Mass/Vol] 2.0 g/dL Normal 2.0-4.0 [facility] Comment on above: Performed By: #### 2 603423 #### MIKE [employer] [address] [place] [address] Glucose [Mass/Vol] 159 mg/dL High 70-99 [facility] Comment on above: Performed By: #### 2 347916 #### MIKE [employer]Nob[employer] [facility] [place] [address] Potassium [Moles/Vol] 3.7 mmol/L Normal 3.5-5.3 [facility] Comment on above: Performed By: #### 2 627463 #### IM[employer] [address] [place] [address] Protein [Mass/Vol] 6.5 g/dL Normal 6.4-8.2 [facility] Comment on above: Performed By: #### 2 184937 #### MIKE [employer] [address] [place] [address] Sodium [Moles/Vol] 143 mmol/L Normal 136-145 [facility] Comment on above: Performed By: #### 2 465834 #### MIKE [employer] [address] [place] [address] Urea nitrogen [Mass/Vol] 19 mg/dL Normal 6-23 [facility] Comment on above: Performed By: #### 2 184476 #### [employer]KE [employer] [address] [place] [address] Urea nitrogen/Creatinine [Mass ratio] 19.0 ratio Normal 5.4-30.0 [facility] Comment on above: Performed By: #### 2 000978 #### MIKE [employer] [address] [place] [address] [id number] 07-04-2019 HbA1c (Bld) [Mass fraction] 8.3 % High 4.0-6.3 [facility] Comment on above: Performed By: #### 2 648456 #### MIKE [employer] [address] [place] [address] eGFRon 07-04-2019 GFR/1.73 sq M predicted among non-blacks MDRD (S/P/Bld) [Vol rate/Area] mL/min/{1.73_m2} Normal [facility] Comment on above: Order Comment: Order added by Discern Expert. Performed By: #### 2 085101 #### MIKE [employer] [address] [place] [address] Auto Diffon 03-03-2019 Basophils (Bld) [#/Vol] 0.1 E3/mcL Normal 0.0-0.2 [facility] Comment on above: Order Comment: Order Added by Discern Expert. Performed By: #### 2 651339 #### MIKE Rem[employer] [address] [place] [address] Basophils/100 WBC (Bld) 1.0 % Normal 0.0-2.0 [facility] Comment on above: Order Comment: Order Added by Discern Expert. Performed By: #### 2 226200 #### MIKE RemH[employer] [address] [place] [address] Eos Absolute 0.2 E3/mcL Normal 0.0-0.7 [facility] Comment on above: Order Comment: Order Added by Andrew Expert. Performed By: #### 2 493101 #### MIKE [employer] [address] [place] [address] Eosinophils/100 WBC (Bld) 2.6 % Normal 0.0-11.0 [facility] Comment on above: Order Comment: Order Added by Discern Expert. Performed By: #### 2 669980 #### MIKE [employer] [address] [place] [address] Lymphocytes (Bld) [#/Vol] 2.0 E3/mcL Normal 1.2-3.4 [facility] Comment on above: Order Comment: Order Added by Discern Expert. Performed By: #### 2 052563 #### MIKE [employer] [address] [place] [address] Lymphocytes/100 WBC (Bld) 26.7 % Normal 20.0-55.0 [facility] Comment on above: Order Comment: Order Added by Discern Expert. Performed By: #### 2 452769 #### MIKE RodriguezHemo [address] [place] [address] Ada Absolute 0.7 E3/mcL Normal 0.0-0.7 [facility] Comment on above: Order Comment: Order Added by Discern Expert. Performed By: #### 2 486037 #### MIKE Ackermano [address] [place], [place] [address] Monocytes/100 WBC (Bld) 9.4 % Normal 0.0-10.0 [facility] Comment on above: Order Comment: Order Added by Discern Expert. Performed By: #### 2 255912 #### MIKE Ackermano [address] [place], [place] [address] Neutro Absolute 4.5 E3/mcL Normal 1.4-6.5 [facility] Comment on above: Order Comment: Order Added by Discern Expert. Performed By: #### 2 890226 #### MIKE RodriguezHemo [address] [place], [place] [address] Neutro Auto 60.3 % Normal 37.0-75.0 [facility] Comment on above: Order Comment: Order Added by Discern Expert. Performed By: #### 2 184203 #### MIKE Ackermano [address] [place] [address] CBC w/ Auto Diffon 9 Erythrocyte distribution width (RBC) [Ratio] 13.2 % Normal 11.5-14.5 [facility] Comment on above: Performed By: #### 2 829173 #### MIKE RodriguezHemo [address] [place] [address] Hematocrit (Bld) [Volume fraction] 41.7 % Low 42.0-52.0 [facility] Comment on above: Performed By: #### 2 656038 #### MIKE Ackermano [facility] [place] [address] Hemoglobin (Bld) [Mass/Vol] 14.1 g/dL Normal 13.5-18.0 [facility] Comment on above: Performed By: #### 2 904871 #### MIKE RemHemo [address] [place] [address], [place] [address] MCH (RBC) [Entitic mass] 31.5 pg High 27.0-31.0 [facility] Comment on above: Performed By: #### 2 603537 #### MIKE Rem[employer] [address] [place] [address] MCHC (RBC) [Mass/Vol] 33.7 g/dL Normal 33.0-37.0 [facility] Comment on above: Performed By: #### 2 414033 #### MIKE Rem[employer]emo [address] [place] [address] MCV (RBC) [Entitic vol] 93.5 fL Normal 78.0-100.0 [facility] Comment on above: Performed By: #### 2 256844 #### MIKE RemHemo [facility]5 [place] [address] Platelet mean volume (Bld) [Entitic vol] 10.0 fL Normal 7.4-11.0 [facility] Comment on above: Performed By: #### 2 232034 #### MIKE RemHemo [facility]5 [place] [address] Platelets (Bld) [#/Vol] 218 E3/mcL Normal 130-400 [facility] Comment on above: Performed By: #### 2 053559 #### MIKE RemHemo [facility]5 [place] [address] RBC (Bld) [#/Vol] 4.46 E6/mcL Normal 3.90-6.10 [facility] Comment on above: Performed By: #### 2 991152 #### MIKE RemHemo [address] [place] [address] WBC (Bld) [#/Vol] 7.5 E3/mcL Normal 3.6-11.0 [facility] Comment on above: Performed By: #### 2 371064 #### MIKE Rem[employer]emo [address] [place] [address] CMPon 03-03-2019 Albumin [Mass/Vol] 4.1 g/dL Normal 3.4-5.0 [facility] Comment on above: Performed By: #### 2 841380 #### [facility] [employer] [address] [place] [address] Albumin/Globulin [Mass ratio] 1.6 {ratio} Normal 1.1-1.9 [facility] Comment on above: Performed By: #### 2 838687 #### [facility] [employer] [address] [place] [address] Alk Phos 83 Int._Unit/L Normal 33-136 [facility] Comment on above: Performed By: #### 2 065594 #### [facility] [employer] [address] [place], [place] [address] ALT [Catalytic activity/Vol] 13 Int._Unit/L Normal 10-52 [facility] Comment on above: Performed By: #### 2 365054 #### [facility] [employer] [address] [place], [place] [address] Anion gap [Moles/Vol] 9 mmol/L Low 10-20 [facility] Comment on above: Performed By: #### 2 595994 #### [facility] [employer] [address] [place], [place] [address] AST [Catalytic activity/Vol] 16 Int._Unit/L Normal 9-39 [facility] Comment on above: Performed By: #### 2 245655 #### [facility] [employer] [address] [place] [address] Bili Total 0.55 mg/dL Normal 0.00-1.20 [facility] Comment on above: Performed By: #### 2 791559 #### [facility] [employer] [address] [place] [address] Calcium [Mass/Vol] 9.3 mg/dL Normal 8.6-10.3 [facility] Comment on above: Performed By: #### 2 031724 #### [facility] [employer] [address] [place] [address] Chloride [Moles/Vol] 105 mmol/L Normal 98-107 [facility] Comment on above: Performed By: #### 2 442469 #### [facility] [employer] [address] [place] [address] CO2 [Moles/Vol] 28.0 mmol/L Normal 21.0-32.0 [facility] Comment on above: Performed By: #### 2 619100 #### MIKE [employer] [address] [place] [address] Creatinine [Mass/Vol] 1.0 mg/dL Normal 0.5-1.3 [facility] Comment on above: Performed By: #### 2 212701 #### MIKE [employer] [address] [place] [address] Globulin (S) [Mass/Vol] 3.0 g/dL Normal 2.0-4.0 [facility] Comment on above: Performed By: #### 2 829640 #### MIKE [employer] [address] [place] [address] Glucose [Mass/Vol] 273 mg/dL High 70-99 [facility] Comment on above: Performed By: #### 2 138419 #### MIKE [employer] [address] [place] [address] Potassium [Moles/Vol] 4.2 mmol/L Normal 3.5-5.3 [facility] Comment on above: Performed By: #### 2 198293 #### MIKE [employer] [address] [place] [address] Protein [Mass/Vol] 6.6 g/dL Normal 6.4-8.2 [facility] Comment on above: Performed By: #### 2 965002 #### MIKE [employer] [address] [place] [address] Sodium [Moles/Vol] 138 mmol/L Normal 136-145 [facility] Comment on above: Performed By: #### 2 576704 #### MIKE [employer] [address] [place] [address] Urea nitrogen [Mass/Vol] 20 mg/dL Normal 6-23 [facility] Comment on above: Performed By: #### 2 361096 #### MIKE [employer] [address] [place] [address] Urea nitrogen/Creatinine [Mass ratio] 20.0 ratio Normal 5.4-30.0 [facility] Comment on above: Performed By: #### 2 444910 #### MIKE [employer] [address] [place] [address] Free T4on 05-03-2019 Free T4 [Mass/Vol] 0.98 ng/dL Normal 0.58-1.64 [facility] Comment on above: Performed By: #### 2 359149 #### MIKE [employer]Nob[employer] [facility] [place] [address] [id number] 03-03-2019 HbA1c (Bld) [Mass fraction] 8.4 % High 4.0-6.3 [facility] Comment on above: Performed By: #### 2 623800 #### MIKE [employer]Noble [employer] [facility] [place] [address] Lipid Profileon 03-03-2019 Cholesterol [Mass/Vol] 164 mg/dL Normal 0-199 [facility] Comment on above: Result Comment: TOTA L CHOLEESTEROL: <200 NORMAL 200 - 239 BORDERLINE HIGH >240 HIGH Performed By: #### 2 478075 #### MIKE [employer]Nob[employer] [facility] [place] [address] Cholesterol in HDL [Mass/Vol] 53 mg/dL Normal 40-60 [facility] Comment on above: Performed By: #### 2 076863 #### MIKE [employer] [facility] [place] [address] Cholesterol in LDL [Mass/Vol] 98 mg/dL Normal 0-130 [facility] Comment on above: Result Comment: <100 OPTIMAL 100-129 NEAR / ABOVE OPTIMAL 130-159 BORDERLINE HIGH 160-189 HIGH >190 VERY HIGH CALC LDL NOT VALID WHEN TRIGLYCERIDE IS >400 MG/DL Performed By: #### 2 142825 #### MIKE [employer] [facility]5 [place] [address] Cholesterol in VLDL [Mass/Vol] 13 mg/dL Normal 0-40 [facility] Comment on above: Performed By: #### 2 924091 #### MIKE [employer] [address] [place] [address] Triglyceride [Mass/Vol] 66 mg/dL Normal 0-149 [facility] Comment on above: Result Comment: AGE DESIRABLE BORDERLINE HIGH 91 D - 9 Y 0 - 74 75 - 99 > 100 10 - 19 Y 0 - 89 90 - 129 > 130 20 -24 Y 0 - 114 115 - 149 > 150 > 25 0 - 149 150 - 199 200 - 499 Performed By: #### 2 117930 #### MIKE [employer] [facility]5 [place] [address] Microalb/Creat Ratioon 03-03 Creatinine [Mass/Vol] 111.0 mg/dL Normal 20.0-300.0 [facility] Comment on above: Performed By: #### 1 [id number] #### MIKE [employer] [facility] [place] [address] Creatinine [Mass/Vol] 95 ug/mg High 0-30 [facility] Comment on above: Performed By: #### 1 [id number] #### MIKE [employer] [address] [place] [address] Ur Microalbumin 10.6 mg/dL High 0.0-1.9 [facility] Comment on above: Performed By: #### 1 [id number] #### MIKE [employer] [address] [place] [address] 384[address] TSHon 03-03-2019 TSH Qn 0.52 mcIU/mL Normal 0.30-5.60 [facility] Comment on above: Performed By: #### 2 097385 #### MIKE [employer] [address] [place], [place] [address] eGFRon 03-03-2019 GFR/1.73 sq M predicted among non-blacks MDRD (S/P/Bld) [Vol rate/Area] mL/min/{1.73_m2} Normal [facility] Comment on above: Order Comment: Order added by Discern Expert. Performed By: #### 1 [id number] #### MIKE [employer] [address] [place], [place] [address] XR Spine Lumbosacral Complet e w/ Bendingon 02-08-2019 XR Spine Lumbosacral Complete w/ Bending Exam Date/Time: 02/08/2019 11:16 EDT Reason for Exam: M54.16 Report STUDY: XR Spine Lumbosacral Complete w/ Bending; 02/08/2019 11:16 am INDICATION: M54.16. COMPARISON: 08/12/2018 ACCESSION NUMBER(S): [id number] ORDERING CLINICIAN: Yamilex Muro FINDINGS: 8 views of the lumbar spine including supine and standing AP, lateral and lateral flexion and extension views were obtained. There is no acute fracture identified. There is mild retrolisthesis of L2 on L3 and of L3 on L4. [id number] disc space narrowing and marginal osteophyte formation [...] by: Jaret Walker MD Technologist: GEE Normal [facility] CMPon 11-02-2018 Albumin [Mass/Vol] 4.2 g/dL Normal 3.4-5.0 [facility] Comment on above: Performed By: #### 2 528194 #### MIKE [employer] [address] [place] [address] Albumin/Globulin [Mass ratio] 1.8 {ratio} Normal 1.1-1.9 [facility] Comment on above: Performed By: #### 2 703212 #### MIKE [employer] [address] [place] [address] Alk Phos 98 Int._Unit/L Normal 33-136 [facility] Comment on above: Performed By: #### 2 820430 #### MIKE [employer] [facility]5 [place] [address] ALT [Catalytic activity/Vol] 18 Int._Unit/L Normal 10-52 [facility] Comment on above: Performed By: #### 2 475528 #### MIKE [employer] [address] [place] [address] Anion gap [Moles/Vol] 10 mmol/L Normal 10-20 [facility] Comment on above: Performed By: #### 2 246478 #### MIKE [employer] [address] [place] [address] AST [Catalytic activity/Vol] 17 Int._Unit/L Normal 9-39 [facility] Comment on above: Performed By: #### 2 513836 #### MI[employer] [address] [place] [address] Bili Total 0.39 mg/dL Normal 0.00-1.20 [facility] Comment on above: Performed By: #### 2 282440 #### [employer] [address] [place] [address] Calcium [Mass/Vol] 9.7 mg/dL Normal 8.6-10.3 [facility] Comment on above: Performed By: #### 2 620205 #### [employer] [address] [place] [address] Chloride [Moles/Vol] 106 mmol/L Normal 98-107 [facility] Comment on above: Performed By: #### 2 989267 #### MIKE [employer] [facility] [place] [address] CO2 [Moles/Vol] 27.0 mmol/L Normal 21.0-32.0 [facility] Comment on above: Performed By: #### 2 [id number] #### [facility] [address] [place] [address] Creatinine [Mass/Vol] 1.2 mg/dL Normal 0.5-1.3 [facility] Comment on above: Performed By: #### 2 [id number] #### [facility] [place] [address] Globulin (S) [Mass/Vol] 2.0 g/dL Normal 2.0-4.0 [facility] Comment on above: Performed By: #### 2 [id number] #### [facility] [address] [place] [address] Glucose [Mass/Vol] 307 mg/dL High 70-99 [facility] Comment on above: Performed By: #### 2 [id number] #### [facility] [address] [place] [address] Potassium [Moles/Vol] 3.9 mmol/L Normal 3.5-5.3 [facility] Comment on above: Performed By: #### 2 [id number] #### [facility] [address] [place] [address] Protein [Mass/Vol] 6.5 g/dL Normal 6.4-8.2 [facility] Comment on above: Performed By: #### 2 [id number] #### [facility] [address] [place] [address] Sodium [Moles/Vol] 139 mmol/L Normal 136-145 [facility] Comment on above: Performed By: #### 2 [id number] #### [facility] [address] [place] [address] Urea nitrogen [Mass/Vol] 23 mg/dL Normal 6-23 [facility] Comment on above: Performed By: #### 2 [id number] #### [facility] [place] [address] Urea nitrogen/Creatinine [Mass ratio] 19.2 ratio Normal 5.4-30.0 [facility] Comment on above: Performed By: #### 2 [id number] #### [facility] [place] [address] [id number] 11-02-2018 HbA1c (Bld) [Mass fraction] 8.4 % High 4.0-6.3 [facility] Comment on above: Performed By: #### 3 [id number] #### MIKE Chemistry Manual Subsection [address] [place] [address] eGFRon 11-02-2018 GFR/1.73 sq M predicted among non-blacks MDRD (S/P/Bld) [Vol rate/Area] mL/min/{1.73_m2} Normal [facility] Comment on above: Order Comment: Order added by Discern Expert. Performed By: #### 1 [id number] #### [facility] [address] [place], [place] [id number] XR Spine Lumbar w/ Obliqueso n 08-13-2018 XR Spine Lumbar w/ Obliques Exam Date/Time: 08/12/2018 14:38 EDT Reason for Exam: low back pain with left sided sciatica Report STUDY: XR Spine Lumbar w/ Obliques; 08/12/2018 2:38 pm INDICATION: low back pain with left sided sciatica. COMPARISON: None. ACCESSION NUMBER(S): [id number] ORDERING CLINICIAN: Nancy Mirza FINDINGS: Five views of the lumbar spine including AP, lateral, lateral cone-down and bilateral oblique views were obtained. There is no acute fracture identified. There is mild retrolisthesis of L2 on L3 and of L3 on L4. Mivz-oq-zkvqivlh disc space narrowing and marginal osteophyte formation [...] Signed by: Jaret Walker MD Technologist: KAVITA [facility] Carotid Duplexon 02-09-2018 Carotid Duplex Non-Invasive Vascular Patient: TR [facility] Rec#: [id number] (Age): 1945(72y) Study Date: 02/09/2018 Room#: Type: Sex: M Reading: AALIYAH Reading: Flo Abdi DO, RPVI Referring: NANCY MIRZA JOHN Music Writer: Christie Trinidad Procedure Info: [id number]... Study Quality: Carotid Duplex: adequate Diagnosis: I65.23 [...] Carotid Duplex Interface, Rad In [facility] - 02/09/2018 4:37 PM EDT Non-Invasive Vascular Patient: TR [facility] Rec#: [id number] (Age): 1945(72y) Study Date: 02/09/2018 Room#: Type: Sex: M Reading: AALIYAH Reading: Flo Abdi DO, RPVI Referring: NANCY MIRZA JOHN Music Writer: Christie Trinidad Procedure Info: [id number]... Study Quality: Carotid Duplex: adequate Diagnosis: I65.23 [...] Flo Abdi DO, RPVI Invalid Interpretation Code [facility] Vital Signs Date Time Vital Sign Value Performing Clinician Facility 04-10-2025 15:10-0400 Diastolic blood pressure 78 mm[Hg] Ryley Jeter MD Work Phone: [facility] 04-10-2025 15:10-0400 Heart rate 80 /min Ryley Jeter MD Work Phone: [facility] 04-10-2025 15:10-0400 Systolic blood pressure 144 mm[Hg] Ryley Jeter MD Work Phone: [facility] 04-10-2025 13:39-0400 Respiratory rate 16 /min Ryley Jeter MD Work Phone: [facility] 04-10-2025 09:38-0400 Inhaled oxygen flow rate 2 L/min Ryely Jeter MD Work Phone: [facility] 04-10-2025 09:38-0400 SaO2% (BldA) [Mass fraction] 98 % Ryley Jeter MD Work Phone: [facility] 04-10-2025 08:45-0400 Body temperature 97.9 [degF] Ryley Jeter MD Work Phone: [facility] 04-10-2025 03:42-0400 Body mass index (BMI) [Ratio] 22.3 kg/m2 Ryley Jeter MD Work Phone: [facility] 04-10-2025 03:42-0400 Body weight 64.7 kg Ryley Jeter MD Work Phone: [facility] 04-10-2025 00:32-0400 Inhaled oxygen concentration 30 % Ryley Jeter MD Work Phone: [facility] 04-09-2025 14:07-0400 Body height 170.18 cm Ryley Jeter MD Work Phone: [facility] 04-03-2025 05:40-0400 Heart rate 110 /min Ryley Jeter MD Work Phone: [facility] 04-03-2025 05:40-0400 Inhaled oxygen concentration 30 % Ryley Jeter MD Work Phone: [facility] 04-03-2025 05:40-0400 Respiratory rate 21 /min Ryley Jeter MD Work Phone: [facility] 04-03-2025 05:40-0400 SaO2% (BldA) [Mass fraction] 98 % Ryley Jeter MD Work Phone: [facility] 04-03-2025 05:17-0400 Body height 170.18 cm Ryley Jeter MD Work Phone: [facility] 04-03-2025 05:17-0400 Body mass index (BMI) [Ratio] 21.2 kg/m2 Ryley Jeter MD Work Phone: [facility] 04-03-2025 05:17-0400 Body temperature 98 [degF] Ryley Jeter MD Work Phone: [facility] 04-03-2025 05:17-0400 Body weight 61.5 kg Ryley Jeter MD Work Phone: [facility] 04-03-2025 05:17-0400 Diastolic blood pressure 77 mm[Hg] Ryley Jeter MD Work Phone: [facility] 04-03-2025 05:17-0400 Systolic blood pressure 167 mm[Hg] Ryley Jeter MD Work Phone: [facility] 04-03-2025 03:00-0400 Inhaled oxygen flow rate 4 L/min Ryley Jeter MD Work Phone: [facility] 03-12-2025 13:50-0400 Body mass index (BMI) [Ratio] 21.9 kg/m2 Paty Ortega [employer] Work Phone: [facility] 03-12-2025 13:50-0400 Body weight 63.41 kg Paty Ortega [employer] Work Phone: [facility] 03-12-2025 13:50-0400 Diastolic blood pressure 61 mm[Hg] Paty Ortega [employer] Work Phone: [facility] 03-12-2025 13:50-0400 Heart rate 69 /min Paty Ortega [employer] Work Phone: [facility] 03-12-2025 13:50-0400 Systolic blood pressure 166 mm[Hg] Paty Ortega [employer]IVER Work Phone: [facility] 03-09-2025 09:42-0400 Body height 170.2 cm Woo Small MD Work Phone: [facility] 03-09-2025 09:42-0400 Body mass index (BMI) [Ratio] 21.9 kg/m2 Woo Small MD Work Phone: [facility] 03-09-2025 09:42-0400 Body weight 63.41 kg Woo Small MD Work Phone: [facility] 03-09-2025 09:42-0400 Diastolic blood pressure 54 mm[Hg] Woo Small MD Work Phone: [facility] 03-09-2025 09:42-0400 Heart rate 73 /min Woo Small MD Work Phone: [facility] 03-09-2025 09:42-0400 SaO2% (BldA) [Mass fraction] 98 % Woo Small MD Work Phone: [facility] 03-09-2025 09:42-0400 Systolic blood pressure 172 mm[Hg] Woo Small MD Work Phone: [facility] 02-26-2025 13:01-0400 Body height 172.7 cm Ayanna Albert DO Work Phone: [facility] 02-26-2025 13:01-0400 Body mass index (BMI) [Ratio] 21.47 kg/m2 Ayanna Albert Work Phone: [facility] 02-26-2025 13:01-0400 Body weight 64.05 kg Ayanna Albert DO Work Phone: [facility] 02-26-2025 13:01-0400 Diastolic blood pressure 68 mm[Hg] Ayanna Albert DO Work Phone: [facility] 02-26-2025 13:01-0400 Heart rate 72 /min Ayanna Albert DO Work Phone: [facility] 02-26-2025 13:01-0400 Systolic blood pressure 158 mm[Hg] Ayanna Albert DO Work Phone: [facility] 11-14-2024 10:44-0500 Diastolic blood pressure 61 mm[Hg] Woo Day Work Phone: [facility] 11-14-2024 10:44-0500 Heart rate 57 /min Woo Day Work Phone: [facility] 11-14-2024 10:44-0500 SaO2% (BldA) [Mass fraction] 96 % Woo Work Phone: [facility] 11-14-2024 10:44-0500 Systolic blood pressure 185 mm[Hg] Woo Day Work Phone: [facility] 11-14-2024 10:37-0500 Body height 170.2 cm Woo Day Work Phone: [facility] 11-14-2024 10:37-0500 Body mass index (BMI) [Ratio] 23.57 kg/m2 Woo Day Work Phone: [facility] 11-14-2024 10:37-0500 Body weight 68.27 kg Woo Day Work Phone: [facility] 11-13-2024 11:16-0500 Body mass index (BMI) [Ratio] 23.45 kg/m2 Paty Ortega [employer] Work Phone: [facility] 11-13-2024 11:16-0500 Body weight 67.9 kg Paty Ortega [employer] Work Phone: [facility] 11-13-2024 11:16-0500 Diastolic blood pressure 51 mm[Hg] Paty Ortega [employer] Work Phone: [facility] 11-13-2024 11:16-0500 Heart rate 71 /min Paty Ortega [employer] Work Phone: [facility] 11-13-2024 11:16-0500 Systolic blood pressure 107 mm[Hg] Paty Ortega [employer] Work Phone: [facility] 11-09-2024 10:42-0500 Diastolic blood pressure 64 mm[Hg] Kristy Parker MD Work Phone: [facility] 11-09-2024 10:42-0500 Heart rate 58 /min Kristy Parker MD Work Phone: [facility] 11-09-2024 10:42-0500 Systolic blood pressure 160 mm[Hg] Kristy Parker MD Work Phone: [facility] 11-09-2024 10:32-0500 Body height 170.2 cm Kristy Parker MD Work Phone: [facility] 11-09-2024 10:32-0500 Body mass index (BMI) [Ratio] 23.18 kg/m2 Kristy Parker MD Work Phone: [facility] 11-09-2024 10:32-0500 Body weight 67.13 kg Kristy Parker MD Work Phone: [facility] 11-07-2024 09:54-0500 Diastolic blood pressure 61 mm[Hg] Brock Groves MD Work Phone: [facility] 11-07-2024 09:54-0500 Systolic blood pressure 143 mm[Hg] Brock Groves MD Work Phone: [facility] 11-07-2024 09:51-0500 Body height 170.2 cm Brock Groves MD Work Phone: [facility] 11-07-2024 09:51-0500 Body mass index (BMI) [Ratio] 23.02 kg/m2 Brock Groves MD Work Phone: [facility] 11-07-2024 09:51-0500 Body temperature 97.39 [degF] Brock Groves MD Work Phone: [facility] 11-07-2024 09:51-0500 Body weight 66.68 kg Brock Groves MD Work Phone: [facility] 11-07-2024 09:51-0500 Heart rate 63 /min Brock Groves MD Work Phone: [facility] 11-07-2024 09:51-0500 SaO2% (BldA) [Mass fraction] 100 % Brock Groves MD Work Phone: [facility] 10-28-2024 11:06-0500 Diastolic blood pressure 51 mm[Hg] Nidia Garay MD Work Phone: [facility] 10-28-2024 11:06-0500 Heart rate 68 /min Nidia Garay MD Work Phone: [facility] 10-28-2024 11:06-0500 Respiratory rate 14 /min Nidia Garay MD Work Phone: [facility] 10-28-2024 11:06-0500 SaO2% (BldA) [Mass fraction] 94 % Nidia Garay MD Work Phone: [facility] 10-28-2024 11:06-0500 Systolic blood pressure 153 mm[Hg] Nidia Garay MD Work Phone: [facility] 10-28-2024 07:24-0500 Body temperature 97.59 [degF] Nidia Garay MD Work Phone: [facility] 10-28-2024 05:11-0500 Body mass index (BMI) [Ratio] 22.44 kg/m2 Nidia Garay MD Work Phone: [facility] 10-28-2024 05:11-0500 Body weight 65 kg Nidia Garay MD Work Phone: [facility] 10-27-2024 16:36-0500 Body height 170.2 cm Nidia Garay MD Work Phone: [facility] 10-27-2024 14:18-0500 SaO2% (BldA) [Mass fraction] 97.3 % Nidia Garay MD Work Phone: [facility] 10-18-2024 13:46-0500 Diastolic blood pressure 61 mm[Hg] Woo Small MD Work Phone: [facility] 10-18-2024 13:46-0500 Heart rate 67 /min Woo Small MD Work Phone: [facility] 10-18-2024 13:46-0500 SaO2% (BldA) [Mass fraction] 100 % Woo Work Phone: [facility] 10-18-2024 13:46-0500 Systolic blood pressure 103 mm[Hg] Woo Day Work Phone: [facility] 10-18-2024 13:27-0500 Body height 172.7 cm Woo Day Work Phone: [facility] 10-18-2024 13:27-0500 Body mass index (BMI) [Ratio] 22.52 kg/m2 Woo Day Work Phone: [facility] 10-18-2024 13:27-0500 Body weight 67.18 kg Woo Day Work Phone: [facility] 08-29-2024 13:04-0400 Diastolic blood pressure 72 mm[Hg] Ayanna Young DO Work Phone: [facility] 08-29-2024 13:04-0400 Systolic blood pressure 168 mm[Hg] Ayanna Young DO Work Phone: [facility] 08-29-2024 12:57-0400 Body height 172.7 cm Ayanna Young DO Work Phone: [facility] 08-29-2024 12:57-0400 Body mass index (BMI) [Ratio] 22.72 kg/m2 Ayanna Young DO Work Phone: [facility] 08-29-2024 12:57-0400 Body weight 67.77 kg Ayanna Young DO Work Phone: [facility] 08-29-2024 12:57-0400 Heart rate 64 /min Ayanna Young DO Work Phone: [facility] 07-21-2024 14:12-0400 Diastolic blood pressure 68 mm[Hg] Paty Ortega [employer] Work Phone: [facility] 07-21-2024 14:12-0400 Systolic blood pressure 166 mm[Hg] Paty Ortega CNP Work Phone: [facility] 07-21-2024 13:38-0400 Body mass index (BMI) [Ratio] 22.44 kg/m2 Paty Ortega [employer] Work Phone: [facility] 07-21-2024 13:38-0400 Body weight 66.95 kg Payt Ortega CNP Work Phone: [facility] 07-21-2024 13:38-0400 Heart rate 69 /min Paty Ortega CNP Work Phone: [facility] 04-24-2024 10:09-0400 Diastolic blood pressure 70 mm[Hg] Woomert Small MD Work Phone: [facility] Comment on above: Manual 04-24-2024 10:09-0400 Systolic blood pressure 150 mm[Hg] Woo Day Work Phone: [facility] Comment on above: Manual 04-24-2024 09:44-0400 Body height 172.7 cm Woomert Small MD Work Phone: [facility] 04-24-2024 09:44-0400 Body mass index (BMI) [Ratio] 22.43 kg/m2 Woo Day Work Phone: [facility] 04-24-2024 09:44-0400 Body weight 66.91 kg Woomert Small MD Work Phone: [facility] 04-24-2024 09:44-0400 Heart rate 53 /min Woomert Small MD Work Phone: [facility] 04-24-2024 09:44-0400 SaO2% (BldA) [Mass fraction] 96 % Woo Day Work Phone: [facility] 02-24-2024 13:44-0400 Body height 172.7 cm Madie BERMAN DNP Work Phone: [facility] 02-24-2024 13:44-0400 Body mass index (BMI) [Ratio] 23.11 kg/m2 Madie BERMAN DNP Work Phone: [facility] 02-24-2024 13:44-0400 Body weight 68.95 kg Madie Albert APRN-AUTO CRANE DRIVER, DNP Work Phone: [facility] 02-24-2024 13:44-0400 Diastolic blood pressure 68 mm[Hg] Madie Albert APRN-AUTO CRANE DRIVER, DNP Work Phone: [facility] 02-24-2024 13:44-0400 Heart rate 76 /min Madie Albert DISHWASHER PREPARER-AUTO CRANE DRIVER, DNP Work Phone: [facility] 02-24-2024 13:44-0400 Systolic blood pressure 142 mm[Hg] Madie Albert APRN-AUTO CRANE DRIVER, DNP Work Phone: [facility] 02-18-2024 12:48-0400 Body mass index (BMI) [Ratio] 23.11 kg/m2 Paty Ortega [employer] Work Phone: [facility] 02-18-2024 12:48-0400 Body weight 68.95 kg Paty Ortega [employer]IVER Work Phone: [facility] 02-18-2024 12:48-0400 Diastolic blood pressure 79 mm[Hg] Paty Ortega [employer] CR[employer]IVER Work Phone: [facility] 02-18-2024 12:48-0400 Heart rate 67 /min Paty Ortega [employer]IVER Work Phone: [facility] 02-18-2024 12:48-0400 Systolic blood pressure 131 mm[Hg] Paty Ortega [employer]IVER Work Phone: [facility] 01-14-2024 11:02-0400 Body height 172.7 cm Aylin Lacy [employer]IVER Work Phone: [facility] 01-14-2024 11:02-0400 Body mass index (BMI) [Ratio] 24.01 kg/m2 Aylin Lacy [employer] Work Phone: [facility] 01-14-2024 11:02-0400 Body weight 71.62 kg Aylin Lacy [employer]IVER Work Phone: [facility] 01-14-2024 11:02-0400 Diastolic blood pressure 78 mm[Hg] Aylin Lacy [employer]IVER Work Phone: [facility] 01-14-2024 11:02-0400 Heart rate 70 /min Aylin Lacy [employer]IVER Work Phone: [facility] 01-14-2024 11:02-0400 SaO2% (BldA) [Mass fraction] 94 % Aylin Lacy [employer]IVER Work Phone: [facility] 01-14-2024 11:02-0400 Systolic blood pressure 139 mm[Hg] Aylin Lacy [employer]IVER Work Phone: [facility] 12-01-2023 08:00-0500 Body temperature 97.9 [degF] Kathleen Story MD Work Phone: [facility] 12-01-2023 08:00-0500 Diastolic blood pressure 73 mm[Hg] Kathleen Story MD Work Phone: [facility] 12-01-2023 08:00-0500 Heart rate 91 /min Kathleen Story MD Work Phone: [facility] 12-01-2023 08:00-0500 Respiratory rate 18 /min Kathleen Story MD Work Phone: [facility] 12-01-2023 08:00-0500 SaO2% (BldA) [Mass fraction] 94 % Kathleen Story MD Work Phone: [facility] 12-01-2023 08:00-0500 Systolic blood pressure 134 mm[Hg] Kathleen Story MD Work Phone: [facility] 12-01-2023 06:00-0500 Body mass index (BMI) [Ratio] 23.96 kg/m2 Kathleen Story MD Work Phone: [facility] 12-01-2023 06:00-0500 Body weight 69.4 kg Kathleen Story MD Work Phone: [facility] 11-27-2023 04:06-0500 SaO2% (BldA) [Mass fraction] 96.0 % Kathleen Story MD Work Phone: [facility] 11-27-2023 03:00-0500 Body height 170.2 cm Kathleen Story MD Work Phone: [facility] 11-27-2023 01:39-0500 Diastolic blood pressure 79 mm[Hg] Ger Bansal DO Work Phone: [facility] 11-27-2023 01:39-0500 Heart rate 77 /min Ger Bansal DO Work Phone: [facility] 11-27-2023 01:39-0500 Respiratory rate 20 /min Ger Bansal DO Work Phone: [facility] 11-27-2023 01:39-0500 SaO2% (BldA) [Mass fraction] 95 % Ger Bansal DO Work Phone: [facility] 11-27-2023 01:39-0500 Systolic blood pressure 148 mm[Hg] Ger Bansal DO Work Phone: [facility] 11-26-2023 21:22-0500 Body height 172.7 cm Ger Bansal DO Work Phone: [facility] 11-26-2023 21:22-0500 Body mass index (BMI) [Ratio] 22.5 kg/m2 Ger Bansal DO Work Phone: [facility] 11-26-2023 21:22-0500 Body temperature 97.11 [degF] Ger Bansal DO Work Phone: [facility] 11-26-2023 21:22-0500 Body weight 67.13 kg Ger Bansal DO Work Phone: [facility] 10-21-2023 08:54-0500 Body height 172.7 cm Woo Samll MD Work Phone: [facility] 10-21-2023 08:54-0500 Body mass index (BMI) [Ratio] 22.61 kg/m2 Woo Small MD Work Phone: [facility] 10-21-2023 08:54-0500 Body weight 67.45 kg Woo Small MD Work Phone: [facility] 10-21-2023 08:54-0500 Diastolic blood pressure 67 mm[Hg] Woo Small MD Work Phone: [facility] 10-21-2023 08:54-0500 Heart rate 65 /min Woo Small MD Work Phone: [facility] 10-21-2023 08:54-0500 SaO2% (BldA) [Mass fraction] 99 % Woo Small MD Work Phone: [facility] 10-21-2023 08:54-0500 Systolic blood pressure 128 mm[Hg] Woo Small MD Work Phone: [facility] 10-13-2023 11:55-0500 SaO2% (BldA) [Mass fraction] 92 % Praful Pineda MD Work Phone: [facility] 10-13-2023 10:39-0500 Heart rate 97 /min Praful Pineda MD Work Phone: [facility] 10-13-2023 09:35-0500 Body height 171.5 cm Praful Pineda MD Work Phone: [facility] 10-13-2023 09:35-0500 Body mass index (BMI) [Ratio] 24.38 kg/m2 Praful Pineda MD Work Phone: [facility] 10-13-2023 09:35-0500 Body weight 71.7 kg Praful Pineda MD Work Phone: [facility] 10-12-2023 20:45-0500 Body temperature 98.1 [degF] Praful Pineda MD Work Phone: [facility] 10-12-2023 20:45-0500 Diastolic blood pressure 85 mm[Hg] Praful Pineda MD Work Phone: [facility] 10-12-2023 20:45-0500 Respiratory rate 16 /min Praful Pineda MD Work Phone: [facility] 10-12-2023 20:45-0500 Systolic blood pressure 123 mm[Hg] Praful Pineda MD Work Phone: [facility] 10-11-2023 01:56-0500 Body temperature 37.0 Praful Pineda MD Work Phone: [facility] 10-11-2023 01:56-0500 SaO2% (BldA) [Mass fraction] 93 % Praful Pineda MD Work Phone: [facility] 10-08-2023 11:12-0500 Diastolic blood pressure 66 mm[Hg] Mary Vargas MD Work Phone: [facility] 10-08-2023 11:12-0500 Heart rate 67 /min Mary Vargas MD Work Phone: [facility] 10-08-2023 11:12-0500 Systolic blood pressure 199 mm[Hg] Mary Vargas MD Work Phone: [facility] 10-08-2023 11:05-0500 Body mass index (BMI) [Ratio] 24.18 kg/m2 Mary Vargas MD Work Phone: [facility] 10-08-2023 11:05-0500 Body weight 72.12 kg Mary Vargas MD Work Phone: [facility] 08-25-2023 14:11-0400 Body weight 72.12 kg Ayanna Albert DO Work Phone: [facility] 08-25-2023 14:11-0400 Diastolic blood pressure 62 mm[Hg] Ayanna Albert DO Work Phone: [facility] 08-25-2023 14:11-0400 Heart rate 62 /min Ayanna Albert DO Work Phone: [facility] 08-25-2023 14:11-0400 Systolic blood pressure 144 mm[Hg] Ayanna Albert DO Work Phone: [facility] 07-27-2023 14:48-0400 Diastolic blood pressure 78 mm[Hg] Nancy Mirza Work Phone: [facility] Work Phone: 07-27-2023 14:48-0400 Systolic blood pressure 152 mm[Hg] Nancy Mirza Work Phone: [facility] Work Phone: 07-27-2023 14:45-0400 Body height 172.72 cm Nancy Mirza Work Phone: [facility] Work Phone: 07-27-2023 14:45-0400 Body mass index (BMI) [Ratio] 24.05 kg/m2 Nancy Mirza Work Phone: [facility] Work Phone: 07-27-2023 14:45-0400 Body surface area Derived from formula 1.85 m2 Nancy Mirza Work Phone: [facility] Work Phone: 07-27-2023 14:45-0400 Body weight 71.76 kg Nancy Mirza Work Phone: [facility] Work Phone: 07-27-2023 14:45-0400 Diastolic blood pressure 88 mm[Hg] Nancy Mirza Work Phone: [facility] Work Phone: 07-27-2023 14:45-0400 Heart rate 70 /min [facility]: 07-27-2023 14:45-0400 SaO2% (BldA) [Mass fraction] 97 % Nancy Mirza Work Phone: [facility] Work Phone: 07-27-2023 14:45-0400 Systolic blood pressure 160 mm[Hg] Nancy Mirza Work Phone: [facility] Work Phone: 02-19-2023 13:02-0400 Body mass index (BMI) [Ratio] 24.33 kg/m2 Paty Ortega [employer] Work Phone: [facility] 02-19-2023 13:02-0400 Body weight 72.58 kg Paty Ortega [employer] Work Phone: [facility] 02-19-2023 13:02-0400 Diastolic blood pressure 83 mm[Hg] Paty Ortega [employer] Work Phone: [facility] 02-19-2023 13:02-0400 Heart rate 73 /min Paty Ortega [employer] Work Phone: [facility] 02-19-2023 13:02-0400 Systolic blood pressure 116 mm[Hg] Paty Ortega [employer] Work Phone: [facility] 10-19-2022 10:01-0500 Diastolic blood pressure 69 mm[Hg] Paty Ortega [employer] Work Phone: [facility] 10-19-2022 10:01-0500 Heart rate 89 /min Apty Ortega [employer] Work Phone: [facility] 10-19-2022 10:01-0500 Systolic blood pressure 149 mm[Hg] Paty Ortega [employer] Work Phone: [facility] 10-19-2022 09:56-0500 Body mass index (BMI) [Ratio] 24.04 kg/m2 Paty Ortega [employer] Work Phone: [facility] 10-19-2022 09:56-0500 Body weight 71.71 kg Paty Ortega [employer] Work Phone: [facility] 06-19-2022 10:04-0400 Diastolic blood pressure 90 mm[Hg] Paty Ortega [employer] Work Phone: [facility] 06-19-2022 10:04-0400 Systolic blood pressure 184 mm[Hg] Paty Ortega [employer] Work Phone: [facility] 06-19-2022 09:40-0400 Heart rate 72 /min Paty Ortega [employer] Work Phone: [facility] 06-19-2022 09:36-0400 Body height 172.7 cm Paty Ortega [employer] Work Phone: [facility] 06-19-2022 09:36-0400 Body mass index (BMI) [Ratio] 24.48 kg/m2 Paty Ortega [employer] Work Phone: [facility] 06-19-2022 09:36-0400 Body weight 73.03 kg Paty Ortega [employer] Work Phone: [facility] 02-13-2022 11:13-0400 Diastolic blood pressure 74 mm[Hg] Mary Vargas MD Work Phone: [facility] 02-13-2022 11:13-0400 Systolic blood pressure 138 mm[Hg] Mary Vargas MD Work Phone: [facility] 02-13-2022 11:09-0400 Body height 172.7 cm Mary Vargas MD Work Phone: [facility] 02-13-2022 11:09-0400 Body mass index (BMI) [Ratio] 25.09 kg/m2 Mary Vargas MD Work Phone: [facility] 02-13-2022 11:09-0400 Body weight 74.84 kg Mary Vargas MD Work Phone: [facility] 02-13-2022 11:09-0400 Heart rate 71 /min Mary Vargas MD Work Phone: [facility] 10-13-2021 14:07-0500 Diastolic blood pressure 72 mm[Hg] Paty Ortega [employer] Work Phone: [facility] 10-13-2021 14:07-0500 Heart rate 74 /min Paty Ortega [employer] Work Phone: [facility] 10-13-2021 14:07-0500 Systolic blood pressure 163 mm[Hg] Paty Ortega [employer] Work Phone: [facility] 10-13-2021 13:59-0500 Body mass index (BMI) [Ratio] 24.89 kg/m2 Paty Ortega [employer] Work Phone: [facility] 10-13-2021 13:59-0500 Body weight 74.25 kg Paty Ortega [employer] Work Phone: [facility] 06-20-2021 14:38-0400 Diastolic blood pressure 68 mm[Hg] Paty Ortega [employer] Work Phone: [facility] 06-20-2021 14:38-0400 Heart rate 70 /min Paty Ortega [employer] Work Phone: [facility] 06-20-2021 14:38-0400 Systolic blood pressure 163 mm[Hg] Paty Ortega [employer] Work Phone: [facility] 06-20-2021 14:33-0400 Body height 172.7 cm Paty Ortega [employer] Work Phone: [facility] 06-20-2021 14:33-0400 Body mass index (BMI) [Ratio] 25.32 kg/m2 Paty Ortega [employer] Work Phone: [facility] 06-20-2021 14:33-0400 Body weight 75.52 kg Paty Ortega [employer] Work Phone: [facility] 02-18-2021 15:24-0400 Body height 172.7 cm Mary Vargas MD Work Phone: [facility] 02-18-2021 15:24-0400 Body mass index (BMI) [Ratio] 25.54 kg/m2 Mary Vargas MD Work Phone: [facility] 02-18-2021 15:24-0400 Body weight 76.2 kg Mary aVrgas MD Work Phone: [facility] 02-18-2021 15:24-0400 Diastolic blood pressure 70 mm[Hg] Mary Vargas MD Work Phone: [facility] 02-18-2021 15:24-0400 Heart rate 76 /min Mary Vargas MD Work Phone: [facility] 02-18-2021 15:24-0400 Systolic blood pressure 194 mm[Hg] Mary Vargas MD Work Phone: [facility] 10-18-2020 13:36-0500 BMI (Body Mass Index) 25.54 kg/m2 Paty [facility] 10-18-2020 13:36-0500 Body weight 76.2 kg Paty [facility] 10-18-2020 13:36-0500 BP Diastolic 69 mm[Hg] [facility] 10-18-2020 13:36-0500 BP Systolic 163 mm[Hg] Paty [facility] 10-18-2020 13:36-0500 Height 172.7 cm [facility] 10-18-2020 13:36-0500 Pulse (Heart Rate) 72 /min Paty [facility] 06-18-2020 10:01-0400 BMI (Body Mass Index) 25.39 kg/m2 Paty [facility] 06-18-2020 10:01-0400 Body weight 75.75 kg Paty [facility] 06-18-2020 10:01-0400 BP Diastolic 71 mm[Hg] [facility] 06-18-2020 10:01-0400 BP Systolic 172 mm[Hg] [facility] 06-18-2020 10:01-0400 Height 172.7 cm Paty [facility] 06-18-2020 10:01-0400 Pulse (Heart Rate) 72 /min [facility] 11-16-2019 10:40-0500 BMI (Body Mass Index) 25.09 kg/m2 Paty Ortega [facility] 11-16-2019 10:40-0500 Body weight 74.84 kg Paty Ortega [facility] 11-16-2019 10:40-0500 BP Diastolic 68 mm[Hg] Paty [facility] 11-16-2019 10:40-0500 BP Systolic 178 mm[Hg] Paty [facility] 11-16-2019 10:40-0500 Height 172.7 cm Paty [facility] 11-16-2019 10:40-0500 Pulse (Heart Rate) 75 /min Paty Ortega [facility] 07-17-2019 10:48-0400 BMI (Body Mass Index) 25.09 kg/m2 Keeley Patton [facility] 07-17-2019 10:48-0400 Body weight 74.84 kg Keeley Patton [facility] 07-17-2019 10:48-0400 BP Diastolic 69 mm[Hg] Keeley Patton [facility] 07-17-2019 10:48-0400 BP Systolic 152 mm[Hg] Keeley Patton [facility] 07-17-2019 10:48-0400 Height 172.7 cm Keeley Patton [facility] 07-17-2019 10:48-0400 Pulse (Heart Rate) 71 /min Keeley Patton [facility] 03-13-2019 12:07-0400 BMI (Body Mass Index) 25.24 kg/m2 Mary Vargas [facility] 03-13-2019 12:07-0400 Body weight 75.3 kg Mary Vargas [facility] 03-13-2019 12:07-0400 BP Diastolic 67 mm[Hg] Mary Vargas [facility] 03-13-2019 12:07-0400 BP Systolic 160 mm[Hg] Mary Vargas [facility] 03-13-2019 12:07-0400 Height 172.7 cm Mary Vargas [facility] 03-13-2019 12:07-0400 Pulse (Heart Rate) 72 /min Mary Vargas [facility] 11-11-2018 11:08-0500 BMI (Body Mass Index) 26 kg/m2 Keeley Patton [facility] 11-11-2018 11:08-0500 BP Diastolic 74 mm[Hg] Keeley Patton [facility] 11-11-2018 11:08-0500 BP Systolic 172 mm[Hg] Keeley Patton [facility] 11-11-2018 11:08-0500 Height 172.7 cm Keeley Patton [facility] 11-11-2018 11:08-0500 Pulse (Heart Rate) 71 /min Keeley Patton [facility] 11-11-2018 11:08-0500 Weight 77.56 kg Keeley Patton [facility] 07-05-2018 10:05-0400 BMI (Body Mass Index) 25.48 kg/m2 [facility] 07-05-2018 10:05-0400 BP Diastolic 58 mm[Hg] [facility] 07-05-2018 10:05-0400 BP Systolic 130 mm[Hg] [facility] 07-05-2018 10:05-0400 Height 172.7 cm [facility] 07-05-2018 10:05-0400 Pulse (Heart Rate) 84 /min [facility] 07-05-2018 10:05-0400 Weight 76.02 kg [facility] 02-28-2018 10:14-0400 BMI (Body Mass Index) 26.15 kg/m2 [facility] 02-28-2018 10:14-0400 BP Diastolic 64 mm[Hg] [facility] 02-28-2018 10:14-0400 BP Systolic 154 mm[Hg] [facility] 02-28-2018 10:14-0400 Height 172.7 cm [facility] 02-28-2018 10:14-0400 Pulse (Heart Rate) 76 /min [facility] 02-28-2018 10:14-0400 Weight 78.02 kg [facility] 10-29-2017 10:08-0500 BMI (Body Mass Index) 25.24 kg/m2 Mary Vargas [facility] Work Phone: 10-29-2017 10:08-0500 BP Diastolic 64 mm[Hg] Mary Vargas [facility] Work Phone: 10-29-2017 10:08-0500 BP Systolic 142 mm[Hg] Mary Vargas [facility] Work Phone: 10-29-2017 10:08-0500 Height 172.7 cm Mary Vargas [facility] Work Phone: 10-29-2017 10:08-0500 Pulse (Heart Rate) 72 /min Mary Vargas [facility] Work Phone: 10-29-2017 10:08-0500 Weight 75.3 kg Mary Vargas [facility] Work Phone: 06-17-2017 11:04-0400 BMI (Body Mass Index) 24.78 kg/m2 Ya Parker [facility] Work Phone: 06-17-2017 11:04-0400 BP Diastolic 62 mm[Hg] Ya Parker [facility] Work Phone: 06-17-2017 11:04-0400 BP Systolic 148 mm[Hg] Ya Parker [facility] Work Phone: 06-17-2017 11:04-0400 Height 172.7 cm Ya Parker [facility] Work Phone: 06-17-2017 11:04-0400 Pulse (Heart Rate) 64 /min Ya Parker [facility] Work Phone: 06-17-2017 11:04-0400 Weight 73.94 kg Ya Parker [facility] Work Phone: Encounters Encounter Date Encounter Type Care Provider Facility Start: 04-16-2025 End: 04-17-2025 Refill Ej Guidry MA [facility] Comment on above: Medication Refill Type 1 diabetes suzie itus with diabetic neuropathy (HCC) Start: 04-12-2025 ambulatory RYLEY JETER [place] [facility] Start: 04-09-2025 Non-patient / Non-visit Dr. Kesha Arnold MD [facility] Work Phone: Start: 04-08-2025 Non-patient / Non-visit Dr. Cassandra Moore MD [facility] Work Phone: Start: 04-07-2025 Non-patient / Non-visit Dr. Cassandra Moore MD [facility] Work Phone: Start: 04-06-2025 Non-patient / Non-visit Dr. Cassandra Moore MD -[place] [facility] Work Phone: Start: 04-06-2025 Non-patient / Non-visit [facility]. Rosetta URI[facility] Start: 04-06-2025 Non-patient / Non-visit Dr. Landry August own [facility] Start: 04-05-2025 Non-patient / Non-visit Dr. Rosetta URIBE [facility] Start: 04-05-2025 Non-patient / Non-visit Dr. Kesha Martin MD [facility] Start: 04-05-2025 Non-patient / Non-visit Dr. Kesha Arnold MD [facility] Work Phone: Start: 04-05-2025 Non-patient / Non-visit Dr. Landry August own [facility] Start: 04-04-2025 Non-patient / Non-visit Dr. Kesha Arnold MD [facility] Work Phone: Start: 04-03-2025 ambulatory Koffi Gibbs [facility] Start: 04-03-2025 Non-patient / Non-visit Dr. Koffi lagnley MD [facility] Start: 04-03-[facility] Start: 04-03-2025 End: 04-10-2025 Evaluation and management of inpatient Dr. Dynaa Hwang MD -Intensive Care Unit Work Phone: Start: 03-29-2025 End: 03-29-[address] [facility] Start: 03-27-2025 End: 03-27-2025 Follow-up encounter Woo Small MD Work Phone: [facility] Comment on above: Basic metabolic pane l Start: 03-12-2025 End: 03-12-2025 Office outpatient visit 25 minutes Paty Ortega [employer] Work Phone: [facility] [place] Comment on above: Type 1 diabetes suzie itus with diabetic neuropathy (HCC) (Primary Dx); Pure hypercholesterolemia; Essential hypertension Start: 03-12-2025 End: 03-12-2025 ambulatory PATY ORTEGA [facility] Ambulatory Start: 03-09-2025 End: 03-09-2025 Office outpatient visit 25 minutes Woo Small MD Work Phone: [facility] Comment on above: 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 (Primary Dx); NSTEMI (non-ST elevated myocardial infarction) (HCC); Hospital discharge follow-up Start: 03-09-2025 End: 03-09-2025 ambulatory RYLEY JETER [facility] Ambulatory Start: 02-28-2025 End: 03-05-2025 Evaluation and management of inpatient [facility] Start: 02-26-2025 End: 02-26-2025 Office outpatient visit 15 minutes Ayanna Albert DO Work Phone: [facility] Building Comment on above: 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); Essential hypertension; Pure hypercholesterolemia; Type 1 diabetes mellitus with diabetic neuropathy Start: 02-26-2025 End: 02-26-2025 ambulatory AYANNA M [facility] Amb[facility] Start: 02-16-2025 End: 02-16-2025 Refill Paty Ortega [employer] Work Phone: [facility] Comment on above: Type 1 diabetes suzie itus with diabetic neuropathy (HCC) (Primary Dx) Start: 02-14-2025 End: 02-14-2025 Documentation procedure Ej Guidry MA [facility] Comment on above: Letter refaxed Start: 02-12-2025 End: 02-13-2025 Orders Only Paty Ortega CNP Work Phone: [facility] Start: 02-09-2025 Encounter for other preprocedural examination [facility] Start: 02-06-2025 End: 02-06-2025 ambulatory Ryley Jeter MD Work Phone: [facility] Work Phone: Start: 02-06-2025 End: 02-06-[address] Kerwin Tamayo MD -Laboratory, [facility] Start: 02-06-2025 End: 02-06-2025 ambulatory Kerwin Tamayo Facility:[facility] Start: 01-01-2025 End: 01-01-2025 Refill Paty Ortega [employer] Work Phone: [facility] Comment on above: Type 1 diabetes suzie itus with diabetic neuropathy (HCC) (Primary Dx) Start: 12-08-2024 End: 12-08-2024 Refill Paty Ortega [employer] Work Phone: [facility] Comment on above: Type 1 diabetes suzie itus with diabetic neuropathy (HCC) Start: 11-20-2024 End: 11-20-2024 Refill Paty Ortega [employer] Work Phone: [facility] Start: 11-14-2024 End: 11-14-2024 Office outpatient visit 25 minutes Woo Small MD Work Phone: [facility] Comment on above: 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 (Primary Dx); Claudication in peripheral vascular disease; Bilateral carotid artery stenosis Start: 11-14-2024 End: 11-14-2024 ambulatory [facility] Amb[facility] Start: 11-13-2024 End: 11-13-2024 Office outpatient visit 25 minutes Paty Ortega [employer] Work Phone: [facility] [place] Comment on above: Type 1 diabetes suzie itus with diabetic neuropathy (HCC) (Primary Dx); Pure hypercholesterolemia; Essential hypertension Start: 11-13-2024 End: 11-13-2024 ambulatory [facility] Amb[facility] Start: 11-09-2024 End: 11-09-2024 Office outpatient new 60 minutes Sandi Phan PA-C Work Phone: [facility] Comment on above: Bilateral carotid ar radha stenosis Start: 11-09-2024 End: 11-09-2024 ambulatory SANDI PHAN [facility] Ambulatory Start: 11-07-2024 End: 11-07-2024 Office outpatient new 45 minutes Brock Groves MD Work Phone: [facility] Comment on above: 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 (Primary Dx) Start: 11-07-2024 End: 11-11-2024 Orders Only Sandi Phan PA-C Work Phone: [facility] Comment on above: Bilateral carotid ar radha stenosis (Primary Dx) Start: 11-06-2024 End: 11-07-2024 Refill Paty Ortega CNP Work Phone: [facility] Comment on above: Type 1 diabetes suzie itus with diabetic neuropathy (HCC) (Primary Dx) Start: 10-27-2024 End: 10-28-2024 ambulatory [facility] Start: 10-27-2024 End: 10-28-2024 Emergency department patient visit Elías Rodriguez MD Work Phone: [facility] Start: 10-23-2024 End: 10-23-2024 Chart abstracting Ej Guidry MA [facility] Comment on above: Medication Refill Start: 10-18-2024 End: 10-18-2024 Office outpatient visit 25 minutes Woo Small MD Work Phone: [facility] Comment on above: Claudication in sheyla pheral vascular disease (HCC) (Primary Dx); Encounter for examination of blood pressure with abnormal findings; 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; Congestive heart failure, unspecified HF chronicity, unspecified heart failure type (HCC); Hypertensive emergency Start: 10-18-2024 End: 10-18-2024 Patient encounter status Woo Small MD Work Phone: [facility] Start: 10-18-2024 End: 10-18-2024 ambulatory WOO SMALL [facility] Ambulatory Start: 10-18-2024 End: 10-18-2024 Encounter for examination of blood pressure with abnormal findings WOO SMALL [facility] Ambulatory Start: 10-06-2024 End: 10-06-2024 Refill Luisa Easley RN [facility] Start: 10-04-2024 ambulatory EJ GUIDRY [facility] Ambulatory Start: 09-28-2024 ambulatory [facility] Start: 09-26-2024 End: 09-26-2024 Refill Paty Ortega CNP Work Phone: [facility] Comment on above: Type 1 diabetes suzie itus with diabetic neuropathy (HCC) (Primary Dx) Start: 09-21-2024 End: 09-21-2024 ambulatory Ryley Jeter Facility:[facility] Start: 09-13-2024 ambulatory Malika Corbin [facility] Start: 09-12-2024 ambulatory Bernardo Susan [facility] Start: 09-12-2024 End: 09-14-2024 Evaluation and management of inpatient Ryley [facility] Facility:[facility] Start: 09-12-2024 ambulatory Young Koroma [facility] Start: 08-29-2024 End: 08-29-2024 Office outpatient visit 15 minutes Ayanna Albert DO Work Phone: [facility] Comment on above: 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); Essential hypertension; Type 1 diabetes mellitus with diabetic neuropathy Start: 08-29-2024 End: 08-29-2024 ambulatory AYANNA De Leon [facility] Ambulatory Start: 07-21-2024 End: 07-21-2024 Office outpatient visit 25 minutes Paty Ortega CNP Work Phone: [facility] [place] Comment on above: Type 1 diabetes suzie itus with diabetic neuropathy (HCC) (Primary Dx); Pure hypercholesterolemia; Essential hypertension Start: 07-21-2024 End: 07-21-2024 ambulatory RYLEY JETER [facility] Ambulatory Start: 07-07-2024 End: 07-07-2024 ambulatory NO ASSIGNED PCP GENERIC PROVIDER [facility] Start: 05-17-2024 End: 05-17-2024 ambulatory Ryley Jeter Facility:[facility] Start: 04-24-2024 End: 04-24-2024 Office outpatient visit 25 minutes Woo Small MD Work Phone: [facility] Comment on above: 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 (Primary Dx); Primary hypertension; Dyslipidemia Start: 04-24-2024 End: 04-24-2024 ambulatory RYLEY JETER [facility] Ambulatory Start: 03-28-2024 Refill Ej Guidry MA [facility] Comment on above: Medication Refill Start: 03-06-2024 Refill Paty Ortega CNP Work Phone: [facility] [place] Comment on above: Type 1 diabetes suzie itus with diabetic neuropathy (HCC) Start: 02-24-2024 End: 02-24-2024 Office outpatient visit 15 minutes Madie BERMAN DNP Work Phone: [facility] Comment on above: 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); Acute on chronic systolic (congestive) heart failure (Multi); Type 1 diabetes mellitus with diabetic neuropathy (Multi) Start: 02-18-2024 End: 02-18-2024 Office outpatient visit 25 minutes Paty Ortega CNP Work Phone: [facility] [place] Comment on above: Type 1 diabetes suzie itus with diabetic neuropathy (HCC) (Primary Dx); Pure hypercholesterolemia; Essential hypertension Start: 02-07-2024 End: 02-07-2024 ambulatory NO ASSIGNED PCP GENERIC PROVIDER [facility] Start: 01-17-2024 Refill Ej Guidry MA [facility] Comment on above: Medication Refill Start: 01-14-2024 End: 01-14-2024 Office outpatient visit 15 minutes Aylin Lacy [employer] Work Phone: [facility] Comment on above: Cardiovascular stres s test abnormal (Primary Dx); Dyslipidemia; 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; Primary hypertension Start: 12-29-2023 Refill Ej Guidry MA [facility] Comment on above: Medication Refill Start: 12-15-2023 End: 12-15-2023 [facility] Work Phone: Start: 12-15-2023 End: 12-15-2023 [facility] encounter [facility] Work Phone: Start: 11-29-2023 End: 11-29-2023 Subsequent hospital visit by physician Jovan Faithv[employer] [facility] Comment on above: Arrived Start: 11-27-2023 End: 12-01-2023 Evaluation and management of inpatient 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); Type 1 diabetes mellitus with other specified complication (CMS/HCC) Start: 11-25-2023 End: 11-25-2023 [facility] Work Phone: Start: 11-25-2023 End: 11-25-2023 Patient encounter procedure [facility] Work Phone: Start: 11-17-2023 End: 11-17-2023 [facility] Work Phone: Start: 11-17-2023 End: 11-17-2023 [facility] Work Phone: Start: 11-02-2023 Orders Only Mary Ramirez MD Work Phone: [facility] Start: 10-22-2023 End: 10-22-2023 Patient encounter procedure [facility], Palomo Hollingsworth Start: 10-21-2023 End: 10-21-2023 Office outpatient new 45 minutes Mary Vargas MD Work Phone: [facility] Comment on above: 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 (Primary Dx); Dyslipidemia; Congestive heart failure, unspecified HF chronicity, unspecified heart failure type (HCC) Start: 10-11-2023 End: 10-11-2023 Subsequent hospital visit by physician Jovan Paul [facility] Start: 10-11-2023 Critical care ill/in jured patient init 30-74 min Aury Rouse DO Work Phone: [facility] Work Phone: Start: 10-11-2023 End: 10-13-2023 Evaluation and management of inpatient Praful Pineda MD Work Phone: [facility] Comment on above: COVID-19 (Primary Dx ); Acute respiratory failure with hypoxia (CMS/HCC); Acute congestive heart failure, unspecified heart failure type (CMS/HCC); Pneumonia of both lungs due to infectious organism, unspecified part of lung; Abnormal electrocardiogram (ECG) (EKG); Acute on chronic systolic (congestive) heart failure (CMS/HCC) Start: 10-08-2023 End: 10-08-2023 Office outpatient visit 25 minutes Mary Vargas MD Work Phone: [facility] [place] Comment on above: 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 Ayanna Albert Facility:[id number] Start: 07-30-2023 Refill Patyeduar Ortega [employer] Work Phone: [facility] [place] Start: 07-29-2023 Patient encounter procedure Da vid Suhki Tabaresk Work Phone: [facility] Work Phone: Start: 07-27-[address] Ayanna Albert Facility:[id number] Start: 02-19-2023 End: 02-19-2023 Office outpatient visit 25 minutes Patyeduar Ortega [employer] Work Phone: [facility] [place] Comment on above: Type 1 diabetes suzie itus with diabetic neuropathy (HCC) Start: 01-25-2023 Patient encounter procedure Da vid Sukhi Mirza Work Phone: [facility] [place] Work Phone: Start: 01-25-[address] Nancy Mirza Facility:[id number] Start: 01-18-2023 Patient encounter procedure Da vid Sukhi Mirza Work Phone: [facility] Work Phone: Start: 01-18-[address] Nancy Mirza Facility:[id number] Start: 01-15-2023 Patient encounter procedure Da vid Sukhi Mirza Work Phone: [facility] [place] Work Phone: Start: 01-15-2023 [email or web address], Provider : Chaya Chan, Status: Pen, Time: 10:00 AM Nancy Mirza Work Phone: [facility] [place] Work Phone: Start: 01-15-[address] Nancy Mirza Facility:[id number] Start: 01-13-2023 Patient encounter procedure Da vid J Rayshawnk Work Phone: [facility] [place] Work Phone: Start: 01-13-[address] Nancy Mirza Facility:[id number] Start: 01-08-2023 [email or web address], Provider : Chaya Chan, Status: Pen, Time: 10:00 AM Nancy Mirza Work Phone: [facility] [place] Work Phone: Start: 01-08-[address] Nancy Mirza Facility:[id number] Start: 01-06-[address] Nancy Mirza Facility:[id number] Start: 01-06-2023 Patient encounter procedure Da jovani Mirza Work Phone: [facility] [place] Work Phone: Start: 01-01-[address] Nancy Mirza Facility:[id number] Start: 01-01-2023 Patient encounter procedure Da jovani Naireleazar Work Phone: [facility] [place] Work Phone: Start: 12-31-2022 Refsander Ortega CNP Work Phone: [facility] Comment on above: Type 1 diabetes suzie itus with diabetic neuropathy (HCC) (Primary Dx) Start: 12-30-[address] Nancy Mirza Facility:[id number] Start: 12-25-[address] Nancy Mirza Facility:[id number] Start: 12-25-2022 Patient encounter procedure Da jovani Mirza Work Phone: [facility] [place] Work Phone: Start: 12-21-2022 Patient encounter procedure Da ludwigd Sukhi Mirza Work Phone: [facility] [place] Work Phone: Start: 12-21-[address] Nancy Mirza Facility:[id number] Start: 10-19-2022 End: 10-19-2022 Office outpatient visit 25 minutes Paty Ortega [employer] Work Phone: [facility] [place] Comment on above: Type 1 diabetes suzie itus with diabetic neuropathy (HCC) (Primary Dx); Essential hypertension; Pure hypercholesterolemia; Bilateral carotid artery stenosis; Prostate cancer screening Start: 06-19-2022 End: 06-19-2022 Office outpatient visit 25 minutes Paty Ortega [employer] Work Phone: [facility] [place] Comment on above: Type 1 diabetes suzie itus with diabetic neuropathy (HCC) (Primary Dx); Essential hypertension; Elevated PSA Start: 02-13-2022 End: 02-13-2022 Office outpatient visit 25 minutes Mary Vargas MD Work Phone: [facility] [place] Comment on above: Type 1 diabetes suzie itus with diabetic neuropathy (HCC) (Primary Dx); 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); Essential hypertension; Bilateral carotid artery stenosis; Prostate cancer screening Start: 10-13-2021 End: 10-13-2021 Office outpatient visit 25 minutes Paty Ortega [employer] Work Phone: [facility] [place] Comment on above: Type 1 diabetes suzie itus with diabetic neuropathy (HCC) (Primary Dx); Essential hypertension; Pure hypercholesterolemia Start: 10-08-2021 Refill Paty Ortega [employer] Work Phone: [facility] Start: 06-20-2021 End: 06-20-2021 Office outpatient visit 25 minutes Paty Ortega [employer] Work Phone: [facility] [place] Comment on above: Type 1 diabetes suzie itus with diabetic polyneuropathy (HCC) (Primary Dx); Essential hypertension; Pure hypercholesterolemia Start: 02-26-2021 End: 02-26-2021 Subsequent hospital visit by physician Mary Vargas MD Work Phone: [facility] Comment on above: Arrived Start: 02-18-2021 End: 02-18-2021 Office outpatient visit 25 minutes Mary Vargas MD Work Phone: [facility] Comment on above: Type 1 diabetes suzie itus with diabetic polyneuropathy (HCC) (Primary Dx); Bilateral carotid artery stenosis; Essential hypertension; 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) Start: 02-18-2021 End: 02-18-2021 Refill Mary Vargas MD Work Phone: [facility] Start: 11-22-2020 End: 11-22-2020 Orders Only Ya Nicolas Work Phone: [facility] Start: 10-18-2020 End: 10-18-2020 Office outpatient visit 25 minutes Paty Ortega Work Phone: [facility] Comment on above: Type 1 diabetes suzie itus with diabetic polyneuropathy (HCC) (Primary Dx); 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); Essential hypertension; Pure hypercholesterolemia Start: 06-18-2020 End: 06-18-2020 Office outpatient visit 25 minutes Paty Ortega Work Phone: [facility] Comment on above: Type 1 diabetes suzie itus with diabetic polyneuropathy (HCC) (Primary Dx); 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); Essential hypertension; Pure hypercholesterolemia Start: 11-16-2019 End: 11-16-2019 Office outpatient visit 25 minutes Paty Ortega Work Phone: [facility] Comment on above: Type I diabetes suzie itus with neurological manifestations, uncontrolled (HCC) (Primary Dx); Type 1 diabetes mellitus with diabetic polyneuropathy (HCC); Pure hypercholesterolemia Start: 07-17-2019 End: 07-17-2019 Office outpatient visit 25 minutes Keeley Patton Work Phone: [facility] Comment on above: Type 1 diabetes suzie itus with diabetic polyneuropathy (HCC) (Primary Dx); Essential hypertension; Pure hypercholesterolemia Start: 03-13-2019 End: 03-13-2019 Office outpatient visit 25 minutes Mary Vargas Work Phone: [facility] Comment on above: 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) (Primary Dx); Pure hypercholesterolemia; Essential hypertension; 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); Prostate cancer screening Start: 11-11-2018 End: 11-11-2018 Office outpatient visit 15 minutes Keeley Patton Work Phone: [facility] Comment on above: Type 1 diabetes suzie itus with diabetic neuropathy (HCC) (Primary Dx); Essential hypertension Start: 07-05-2018 End: 07-05-2018 Office outpatient visit 25 minutes Paty Stewart Ortega Work Phone: [facility] Comment on above: Type 1 diabetes suzie itus with diabetic neuropathy (HCC) (Primary Dx); Essential hypertension; Pure hypercholesterolemia Start: 02-28-2018 End: 02-28-2018 Office/outpatient visit, est, level 3 Alexandra Larsen Chon Work Phone: [facility] Start: 02-09-2018 Ambulatory Nancy Mirza Facilit y:[place] Start: 02-09-2018 End: 02-09-2018 Ambulatory Nancy Mirza Work Phone: [facility] Start: 10-29-2017 Office/outpatient vi sit, est, level 4 Mary Varags Work Phone: [facility] Start: 06-17-2017 End: 06-17-2017 Office outpatient visit 25 minutes Ya Parker Work Phone: [facility] Comment on above: Type 1 diabetes suzie itus with diabetic neuropathy (HCC) (Primary Dx);Essential hypertension;Pure hypercholesterolemia Procedures Date Procedure Procedure Detail Performing Clinician Start: 04-10-2025 Estimated creatinine clearance Ryley Jeter MD Work Phone: Start: 04-09-2025 Measurement of occul t blood in stool specimen using immunoassay Ryley Jeter MD Work Phone: Start: 04-07-2025 Gram stain microscopy C cortes Jeter MD Work Phone: Start: 04-07-2025 Respiratory microbial culture Ryley Jeter MD Work Phone: Start: 04-07-2025 Total iron binding c apacity measurement Ryley Jeter MD Work Phone: Start: 04-06-2025 Antibody measurement Ch kulwant Jeter MD Work Phone: Comment on above: The atypical pANCA p attern has been observed in asignificant percentage of patients with ulcerative colitis,primary sclerosing cholangitis and autoimmune hepatitis.Performed at: [address] [id number] Director: Todd Anderson PhD, Phone: [phone] Start: 04-06-2025 Serum inorganic phos phate measurement Ryley Jeter MD Work Phone: Start: 04-05-2025 Plain chest X-ray Gregg Jeter MD Work Phone: Start: 04-05-2025 Urnls dip stick/tabl et reagent auto microscopy Ryley Jeter MD Work Phone: Start: 04-04-2025 Urea nitrogen measur ement, urine Ryley Jeter MD Work Phone: Start: 04-04-2025 Complete ultrasound of kidneys and bladder Ryley Jeter MD Work Phone: Start: 04-03-2025 End: 04-03-2025 Bacterial nucleic acid assay Ryley Jeter MD Work Phone: Start: 04-03-2025 Blood culture Ryley coulter MD Work Phone: Start: 04-03-2025 Legionella pneumophi la antigen assay Ryley Jeter MD Work Phone: Start: 04-03-2025 Nucleic acid assay Dante Jeter MD Work Phone: Start: 04-03-2025 SARS-CoV-2, Influenz a & RSV (PCR) Ryley Jeter MD Work Phone: Start: 04-03-2025 End: 04-03-2025 Streptococcus pneumoniae antigen assay Ryley Jeter MD Work Phone: Start: 04-03-2025 Urine culture Ryley coulter MD Work Phone: Start: 04-03-2025 Carbon dioxide measu rement, partial pressure Ryley Jeter MD Work Phone: Start: 04-03-2025 Gases blood o2 satur ation only direct nikkie Ryley Jeter MD Work Phone: Start: 04-03-2025 Measurement of parti al pressure of oxygen in blood Ryley Jeter MD Work Phone: Start: 04-03-2025 Oxygen measurement Dante Jeter MD Work Phone: Start: 04-03-2025 CT angiography of ch est with contrast Ryley Jeter MD Work Phone: Start: 04-03-2025 Plain chest X-ray Gregg Jeter MD Work Phone: Start: 04-03-2025 D-dimer assay, quantitative Ryley Jeter MD Work Phone: Comment on above: D-Dimer ELEVATED (>0 .49): Additional studies and clinicalassessments are indicated to conclude diagnosis of:Deep Vein Thrombosis (DVT) or Pulmonary Embolism (PE)CRITICAL VALUE CALLED TO [id number] Victor Hugo Santamaria.RESULTS READ BACK BY SAME. Start: 04-03-2025 Estimated creatinine clearance Ryley Jeter MD Work Phone: Start: 02-12-2025 Comprehensive metabolic panel Paty Ortega [facility] Work Phone: Start: 02-12-2025 Lipid panel Paty Ortega [facility] Work Phone: Start: 02-12-2025 Lipid 1996 panel - S laurence or Plasma Ayanna Juanito VERDUZCO Work Phone: Start: 02-12-2025 Thyrotropin [Units/v olume] in Serum or Plasma Ayanna Albert Work Phone: Start: 11-14-2024 Follow-up visit Follow-up WOO LARSEN GEOVANNY Start: 10-28-2024 Glucose measurement Laura Benitez MD Work Phone: Start: 10-28-2024 Glucose measurement Gen malika [facility] Work Phone: Start: 10-28-2024 End: 10-28-2024 Glucose measurement Generic [facility] Work Phone: Start: 10-28-2024 Glucose measurement Gen malika [facility] Work Phone: Start: 10-28-2024 End: 10-28-2024 Glucose measurement Generic [facility] Work Phone: Start: 10-28-2024 Glucose measurement Gen malika [facility] Work Phone: Start: 10-28-2024 End: 10-28-2024 Basic metabolic panel calcium total Cintia Benitez MD Work Phone: Start: 10-28-2024 End: 10-28-2024 Glucose measurement Generic [facility] Work Phone: Start: 10-28-2024 End: 10-28-2024 Glucose measurement Generic [facility] Work Phone: Start: 10-27-2024 End: 10-28-2024 Glucose measurement Generic [facility] Work Phone: Start: 10-27-2024 Basic metabolic pane l calcium total Cintia Benitez MD Work Phone: Start: 10-27-2024 Glucose measurement Gen malika [facility] Work Phone: Start: 10-27-2024 Comprehensive metabolic panel Cintia Benitez MD Work Phone: Start: 10-27-2024 End: 10-27-2024 Glucose measurement Generic [facility] Work Phone: Start: 10-27-2024 End: 10-27-2024 Glucose measurement Cintia Benitez MD Work Phone: Start: 10-27-2024 End: 10-27-2024 Assay of lactate Cintia Benitez MD Work Phone: Start: 10-27-2024 Glucose measurement Jose Antonio Rodriguez MD Work Phone: Start: 10-27-2024 Gases blood ph direc t nikkie xcpt pulse oximitry Elías Rodriguez MD Work Phone: Start: 10-27-2024 Echo tthrc r-t 2d w/ wom-mode compl spec&colr d Zoila Pollard PA-C Work Phone: Start: 10-27-2024 Potassium serum plas ma/whole blood Elías Rodriguez MD Work Phone: Start: 10-27-2024 Ct thorax w/o contra st material Zoila Pollard PA-C Work Phone: Start: 10-27-2024 Radiologic exam chest 2 views Zoila Pollard PA-C Work Phone: Start: 10-27-2024 Urnls dip stick/tabl et reagent auto microscopy Zoila Pollard PA-C Work Phone: Start: 10-27-2024 Blood group typing Felicity Rodriguez MD Work Phone: Start: 10-27-2024 Non-invasive physiol ogic study extremity 3 levls Zoila Pollard PA-C Work Phone: Start: 10-27-2024 End: 10-27-2024 Dup-scan xtr veins unilateral/limited study Zoila Pollard PA-C Work Phone: Start: 10-27-2024 Duplex scan extracra nial art compl bi study Zoila Pollard PA-C Work Phone: Start: 10-27-2024 Glucose measurement Jose Antonio Rodriguez MD Work Phone: Start: 10-27-2024 Blood typing serologic abo Zoila Pollard PA-C Work Phone: Start: 10-27-2024 End: 10-27-2024 Comprehensive metabolic panel Zoila Pollard PA-C Work Phone: Start: 10-27-2024 Cath plmt l hrt & ar ts w/njx & angio img s&i Woo Small MD Work Phone: Start: 10-27-2024 Glucose measurement Jose Antonio Rodriguez MD Work Phone: Start: 07-07-2024 Thyrotropin [Units/v olume] in Serum or Plasma Ayanna Albert DO Work Phone: Start: 02-07-2024 ALBUMIN, URINE RANDOM N O GENERIC PROVIDER Start: 02-07-2024 Comprehensive metabo lic 2000 panel - Serum or Plasma NO GENERIC PROVIDER Start: 12-01-2023 End: 12-01-2023 Glucose measurement Jose delgado MD Work Phone: Start: 12-01-2023 End: 12-01-[address] [facility] Work Phone: Start: 12-01-2023 Basic metabolic pane l calcium total Norma Tania Strong [employer] Work Phone: Start: 11-30-2023 Glucose [facility] Work Phone: Start: 11-30-2023 Glucose measurement Gen [facility] Work Phone: Start: 11-30-2023 Echo tthrc r-t 2d w/ wom-mode compl spec&colr d Norma Tania Strong [employer] Work Phone: Start: 11-30-2023 Basic metabolic pane l calcium total Norma Tania Strong [employer] Work Phone: Start: 11-29-2023 Ct thorax w/o contra st material Alfred P Ezike [employer] Work Phone: Start: 11-29-2023 Thromboplastin time partial plasma/whole blood Mary Vargas MD Work Phone: Start: 11-29-2023 Glucose measurement Gen [facility] Work Phone: Start: 11-29-2023 Ecg routine ecg w/le ast 12 lds trcg only w/o i&r Ger W Bansal DO Work Phone: Start: 11-29-2023 Glucose measurement [facility] Work Phone: Start: 11-29-2023 Thromboplastin time partial plasma/whole blood Mary Vargas MD Work Phone: Start: 11-29-2023 Basic metabolic pane l calcium total Norma Tania Strong [employer] Work Phone: Start: 11-28-2023 Glucose measurement [facility] Work Phone: Start: 11-28-2023 Glucose measurement [facility] Work Phone: Start: 11-28-2023 Glucose measurement [facility] Work Phone: Start: 11-28-2023 Glucose measurement [facility] Work Phone: Start: 11-28-2023 Basic metabolic pane l calcium total Norma Tania Juanjo [employer] Work Phone: Start: 11-28-2023 Glucose measurement [facility] Work Phone: Start: 11-28-2023 Basic metabolic pane l calcium total Norma Tania Strong [employer] Work Phone: Start: 11-27-2023 End: 11-27-2023 Basic metabolic panel calcium total Norma Tania Juanjo [employer] Work Phone: Start: 11-27-2023 C-reactive protein Mehdi Pabon MD Work Phone: Start: 11-27-2023 Glucose measurement [facility] Work Phone: Start: 11-27-2023 Glucose measurement [facility] Work Phone: Start: 11-27-2023 Glucose measurement [facility] Work Phone: Start: 11-27-2023 Basic metabolic pane l calcium total Norma Tania Strong [employer] Work Phone: Start: 11-27-2023 Glucose measurement [facility] Work Phone: Start: 11-27-2023 Iaad ia clostridium difficile toxin Norma Tania Juanjo [employer] Work Phone: Start: 11-27-2023 Hemoglobin glycosylated a1c Mary Vargas MD Work Phone: Start: 11-27-2023 Glucose measurement [facility] Work Phone: Start: 11-27-2023 Basic metabolic pane l calcium total Norma Tania Strong [employer] Work Phone: Start: 11-27-2023 Glucose measurement [facility] Work Phone: Start: 11-27-2023 Glucose measurement [facility] Work Phone: Start: 11-27-2023 End: 11-27-[address] [facility] Work Phone: Start: 11-27-2023 Basic metabolic pane l calcium total Norma Tania Juanjo [employer] Work Phone: Start: 11-27-2023 Glucose measurement [facility] Work Phone: Start: 11-27-2023 Glucose measurement [facility] Work Phone: Start: 11-27-2023 Glucose measurement [facility] Work Phone: Start: 11-27-2023 Basic metabolic pane l calcium total Norma Tania Strong [employer] Work Phone: Start: 11-27-2023 Influenza virus A an d B RNA and SARS-CoV-2 (COVID-19) N gene panel - Respiratory specimen by ALICE with probe detection Norma Geiger CNP Work Phone: Start: 11-27-2023 Polymerase chain ty ction analysis Norma Geiger CNP Work Phone: Start: 11-27-2023 End: 11-27-[address] [facility] Work Phone: Start: 11-27-2023 Assay of troponin quantitative Norma Geiger CNP Work Phone: Start: 11-27-2023 Gases blood ph direc t nikkie xcpt pulse oximitry Generic [facility] Work Phone: Start: 11-27-2023 End: 11-27-[address] [facility] Work Phone: Start: 11-27-2023 Radiologic exam ches t single view Norma Geiger CNP Work Phone: Start: 11-27-2023 End: 11-27-2023 Gases blood ph direct nikkie xcpt pulse oximitry Generic [facility] Work Phone: Start: 11-27-2023 Ecg routine ecg w/le ast 12 lds trcg only w/o i&r Norma Geiger CNP Work Phone: Start: 11-27-2023 OBTAIN ARTERIAL BLOO D GASES AND PERFORM Norma Geiger [employer] Work Phone: Start: 11-27-2023 OBTAIN VENOUS BLOOD GASES AND PERFORM Norma Geiger CNP Work Phone: Start: 11-27-2023 End: 11-27-2023 Basic metabolic panel calcium total Norma Geiger CNP Work Phone: Start: 11-27-2023 End: 11-27-2023 Culture bacterial blood aerobic w/id isolates Norma Geiger [employer] Work Phone: Start: 11-27-2023 Lipid panel Norma Tavares [employer] Work Phone: Start: 11-27-2023 End: 11-27-[address] [facility] Work Phone: Start: 11-27-2023 Thyrotropin [Units/v olume] in Serum or Plasma [facility] Start: 11-27-2023 Assay of troponin quantitative Ger Sim Bansal DO Work Phone: Start: 11-26-2023 EXTRA TUBES Ger W Swi ft DO Work Phone: Start: 11-26-2023 GREEN TOP Ger W Swi ft DO Work Phone: Start: 11-26-2023 Assay of lactate Ger W Bansal DO Work Phone: Start: 11-26-2023 Iadna s aureus methi cillin resist amp probe tq Ger W Bansal DO Work Phone: Start: 11-26-2023 Radiologic exam ches t single view Ger Sim Bansal DO Work Phone: Start: 11-26-2023 End: 11-26-2023 Comprehensive metabolic panel Ger W Swi ft DO Work Phone: Start: 11-26-2023 PB ED PLACEHOLDER Ger Sim Bansal DO Work Phone: Start: 11-25-2023 Plain chest [...] Glucose quantitative blood xcpt reagent strip Praful iPneda MD Work Phone: Start: 10-11-2023 End: 10-11-2023 Glucose quantitative blood xcpt reagent strip Vera Rivera MD Work Phone: Start: 10-11-2023 Echo tthrc r-t 2d w/ wom-mode compl spec&colr d Vera Rivera MD Work Phone: Start: 10-11-2023 End: 10-11-2023 Glucose quantitative blood xcpt reagent strip Praful Pineda MD Work Phone: Start: 10-11-2023 EXTRA TUBES Aury Rouse DO Work Phone: Start: 10-11-2023 End: 10-11-2023 Procalcitonin (pct) Praful Pineda MD Work Phone: Start: 10-11-2023 SST TOP Aury oRuse DO Work Phone: Start: 10-11-2023 EXTRA URINE OROSCO TUBE R ichbeka Rouse DO Work Phone: [...] Rouse DO Work Phone: Start: 10-11-2023 Comprehensive metabolic panel Aury Rouse DO Work Phone: Start: 10-11-2023 RAINBOW DRAW Aury Rouse DO Work Phone: Start: 10-11-2023 SST TOP Aury Rouse DO Work Phone: Start: 10-11-2023 Troponin I.cardiac p jaylin - Serum or Plasma by High sensitivity method Aury Silver Rouse DO Work Phone: Start: 10-11-2023 End: 10-11-2023 Ecg routine ecg w/least 12 lds i&r only Aury Silver Rouse DO Work Phone: Start: 10-11-2023 Iadna dna/rna rsv am plified probe technique Aury Silver Rouse DO Work Phone: Start: 10-11-2023 Influenza virus A an d B RNA [Identifier] in Unspecified specimen by ALICE with probe detection Aury Silver Rouse DO Work Phone: Start: 10-11-2023 SARS-CoV-2 (COVID-19 ) RNA [Presence] in Respiratory specimen by ALICE with probe detection Aury Silver Rouse DO Work Phone: Start: 09-27-2023 Lipid 1996 panel - S laurence or Plasma Praful Pineda MD Work Phone: Start: 09-27-2023 Thyrotropin [Units/v olume] in Serum or Plasma Praful Pineda MD Work Phone: Start: 06-21-2023 3 comp foot exam completed Paty Ortega [employer] Work Phone: Start: 02-19-2023 3 comp foot exam completed Paty Ortega [employer] Work Phone: Start: 02-12-2023 Lipid 1996 panel - S laurence or Plasma Ayanna Albert DO Work Phone: Start: 02-12-2023 Thyrotropin [Units/v olume] in Serum or Plasma Ayanna Albert DO Work Phone: Start: 10-19-2022 3 comp foot exam completed Paty Ortega [employer] CR[employer] 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 Work Phone: Start: 06-19-2022 3 comp foot exam completed Paty Ortega [employer] 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 Work Phone: Start: 02-13-2022 3 comp foot exam completed Mary Vargas MD Work Phone: Start: 10-13-2021 3 comp foot exam completed Paty Jordan [employer] DRIVER Work Phone: Start: 06-20-2021 3 comp foot exam completed Paty Ortega [employer]O CRANE DRIVER Work Phone: Start: 06-11-2021 Microalbumin [Mass/v olume] in Urine by Test strip Patyeduar Ortega [employer] CR[employer] DRIVER Work Phone: Start: 02-26-2021 Duplex scan extracra nial art compl bi study Mary Vargas MD Work Phone: Start: 02-18-2021 3 comp foot exam completed Mary Vargas MD Work Phone: Start: 10-18-2020 3 comp foot exam completed Paty Ortega Start: 10-14-2020 Ophthalmic examinati on and evaluation Paty Ortega [employer] DR[employer] Work Phone: Start: 10-03-2020 Microalbumin [Mass/v olume] in Urine by Test strip Patyavinash Ortega Start: 11-16-2019 3 comp foot exam completed Paty Ortega Start: 07-17-2019 3 comp foot exam completed Paty Ortega Start: 07-04-2019 [object Object] Comment on above: Result Comment: AGE- SPECIFIC REFERENCE RANGES FOR SERUM PSA REFERENCE RANGE NG/ML AGE ASIANS BLACKS WHITE 40-49 0-2 0-2 0-2.5 50-59 0-3 0-4 0-3.5 60-69 0-4 0-4.5 0-4.5 70-79 0-5 0-5.5 0-6.5 PSA INCREASES WITH AGE, RACE, AND EJACULATION WITHIN 48 HRS. [facility] VOL24,NO.2, , PG.339 Performed By: #### [id number] #### [place] [address] Start: 03-13-2019 3 comp foot exam completed Keeley Patton Start: 11-11-2018 3 comp foot exam completed Mary Vargas Start: 07-05-2018 3 comp foot exam completed Keeley Patton Start: 02-15-2017 3 comp foot exam completed Ya Parker Plan of Treatment Date Care Activity Detail Author Start: 02-12-2026 Creatinine measurement Creatinine Level [facility] Start: 02-12-2026 Lipid panel Lipid Panel [facility] Start: 02-12-2026 Potassium measurement Potassium Level [facility] Start: 02-12-2026 Thyroid stimulating hormone measurement TSH Level [facility] Start: 02-12-2026 Urine screening for protein Diabetes: Urine Protein Screening [facility] Start: 11-13-2025 Diabetic foot examination Diabetic Foot Exam [facility] Start: 10-27-2025 Screening for malignant neoplasm of lung Low-dose CT Lung Cancer Screen [facility] Start: 09-23-2025 eGFR Diabetes eGFR Diabetes [facility] Start: 09-05-2025 Urine screening for protein eGFR Diabetes [facility] Start: 08-14-2025 Hemoglobin A1c measurement A1C [facility] Start: 08-14-2025 Urine screening for protein eGFR Diabetes [facility] Start: 07-13-2025 End: 07-13-2025 Patient encounter procedure 07/13/2025 1:00 PM EDT Office Visit [facility] [place] [address] [place] [address] Paty Ortega CNP [address] [place] [address] [facility] [place] Start: 07-07-2025 Creatinine measurement Creatinine Level [facility] Start: 07-07-2025 Potassium measurement Potassium Level [facility] Start: 07-07-2025 Thyroid stimulating hormone measurement TSH Level [facility] Start: 07-02-2025 Influenza vaccination Influenza Vaccine (Season Ended) [facility] Start: 06-12-2025 End: 06-12-2025 Patient encounter procedure 06/12/2025 9:20 AM EDT Office Visit [facility] [address] [place] [phone] Woo Small MD [address] [place] [address] [facility] Start: 05-30-2025 Hemoglobin A1c measurement A1C [facility] Start: 05-17-2025 End: 05-17-2025 Patient encounter procedure [facility] Start: 05-14-2025 Hemoglobin A1c measurement [facility] Start: 05-14-2025 End: 05-14-2025 Patient encounter procedure 05/14/2025 11:20 AM EDT Office Visit [facility] [address] [place] [address] Woo Small MD [address] [place], [place] [address] [address] [facility] Start: 04-28-2025 Urine screening for protein eGFR Diabetes [facility] Start: 04-18-2025 Urine screening for protein eGFR Diabetes [facility] Start: 04-10-2025 Patient discharge [facility] Start: 04-08-2025 Administration of blood product [facility] Start: 04-07-2025 Application of intermittent pneumatic compression device [facility] Start: 04-07-2025 Hemodialysis care [facility] Start: 04-07-2025 End: 04-07-2025 [facility] Start: 04-07-2025 [facility] Start: 04-06-2025 [facility] Start: 04-06-2025 Care of hemodialysis equipment [facility] Start: 04-06-2025 Hemodialysis care [facility] Start: 04-06-2025 [facility] Start: 04-05-2025 End: 04-06-2025 [facility] Start: 04-05-2025 Care of hemodialysis equipment [facility] Start: 04-05-2025 Dialysis care [facility] Start: 04-05-2025 Referral to general surgeon [facility] Start: 04-05-2025 Continuous pulse oximetry [facility] Start: 04-05-2025 Dual pressure spontaneous ventilation support [facility] Start: 04-04-2025 End: 04-04-2025 [facility] Start: 04-04-2025 Care regimes management [facility] Start: 04-04-2025 Notification of physician [facility] Start: 04-04-2025 Referral to leaf coverer [facility] Start: 04-04-2025 End: 04-05-2025 [facility] Start: 04-04-2025 [facility] Start: 04-03-2025 Referral to baseball club manager [facility] Start: 04-03-2025 Bacteria identified in Blood by Culture Blood Culture [facility] Start: 04-03-2025 Respiratory Panel (PCR) Respiratory Panel (PCR) [facility] Start: 04-03-2025 Following clinical pathway protocol [facility] Start: 04-03-2025 Lab findings surveillance [facility] Start: 04-03-2025 End: 04-03-2025 Care planning and problem solving actions [facility] Start: 04-03-2025 End: 04-03-2025 [facility] Start: 04-03-2025 End: 04-03-2025 Following clinical pathway protocol [facility] Start: 04-03-2025 Application of elastic bandage [facility] Start: 04-03-2025 Assessment of risk of venous thromboembolism [facility] Start: 04-03-2025 Bacteria identified in Sputum by Culture [facility] Start: 04-03-2025 Care regimes management [facility] Start: 04-03-2025 Consultation [facility] Start: 04-03-2025 Elevation of affected extremity [facility] Start: 04-03-2025 Fall prevention [facility] Start: 04-03-2025 Incentive spirometry [facility] Start: 04-03-2025 Inhalation therapy procedure [facility] Start: 04-03-2025 Insertion of catheter into peripheral vein [facility] Start: 04-03-2025 Introduction of urinary catheter [facility] Start: 04-03-2025 Measuring intake and output [facility] Start: 04-03-2025 Notification of physician [facility] Start: 04-03-2025 Oxygen therapy [facility] Start: 04-03-2025 Patient education [facility] Start: 04-03-2025 Patient referral to dietitian [facility] Start: 04-03-2025 Providing care according to standard [facility] Start: 04-03-2025 Provision of activity privileges [facility] Start: 04-03-2025 Referral to occupational therapist [facility] Start: 04-03-2025 Referral to service [facility] Start: 04-03-2025 Tobacco use cessation education [facility] Start: 04-03-2025 Vital signs measurements [facility] Start: 04-03-2025 Bacterial nucleic acid assay [facility] Start: 04-03-2025 Thyroid stimulating hormone measurement [facility] Start: 04-03-2025 Streptococcus pneumoniae antigen assay [facility] Start: 04-03-2025 Verification routine [facility] Start: 04-03-2025 Admission procedure [facility] Start: 04-03-2025 [facility] Start: 04-03-2025 End: 04-03-2025 [facility] Start: 04-03-2025 Continuous pulse oximetry [facility] Start: 04-03-2025 Dual pressure spontaneous ventilation support [facility] Start: 03-23-2025 Medicare Annual Wellness Visit Medicare Annual Wellness Visit (AWV) [facility] Start: 03-12-2025 End: 03-12-2025 Patient encounter procedure 03/12/2025 2:00 PM EDT Office Visit [facility] [place] [address] [place] [address] Paty Ortega, [address] [address] [facility] [place] Start: 02-26-2025 End: 02-26-2026 Basic metabolic 2000 panel - Serum or Plasma Basic metabolic panel Lab Routine Stage 3b chronic kidney disease (Multi) Expected: 02/26/2025 (Approximate), Expires: 02/26/2026 [facility] Service Area Work Phone: Comment on above: Expected: 02/26/2025 (Approximate), Expi res: 02/26/2026 Start: 02-06-2025 Creatinine measurement Creatinine Level [facility] Start: 02-06-2025 Potassium measurement Potassium Level [facility] Start: 02-04-2025 Hemoglobin A1c measurement A1C [facility] Start: 11-29-2024 Screening for malignant neoplasm of lung Low-dose CT Lung Cancer Screen [facility] Start: 11-27-2024 Thyroid stimulating hormone measurement TSH Level [facility] Start: 11-26-2024 Creatinine measurement Creatinine Level [facility] Start: 11-26-2024 Potassium measurement Potassium Level [facility] Start: 11-20-2024 End: 11-20-2024 Patient encounter procedure 11/20/2024 2:45 PM EST Office Visit [facility] [place] [address] [place] [address] Paty Ortega, AUTO CRANE DRIVER [address] [place] [place] [address] [facility] [place] Start: 11-14-2024 End: 11-14-2024 Patient encounter procedure 11/14/2024 10:40 AM EST Office Visit [facility] [place] [address] Woo Small MD [address] [place] [address] [facility] Start: 11-13-2024 End: 11-13-2024 Patient encounter procedure 11/13/2024 11:30 AM EST Office Visit [facility] [address] [place] [address] Paty Ortega CNP [address] [place] [address] [facility] [place] Start: 11-07-2024 End: 11-07-2024 Patient encounter procedure 11/07/2024 10:00 AM EST Office Visit [facility] [address] [facility] [place] [address] Brock Groves MD [address] [place] [address] [facility] Start: 11-03-2024 End: 11-03-2024 Patient encounter procedure [facility] Start: 10-27-2024 End: 10-27-2024 Admission to same day surgery center 10/27/2024 10:05 AM EST - 10/27/2024 10:55 AM EST Surgery [facility] [address] [place] [phone] Elías Rodriguez MD [address] [place] [address] Left Heart Cath [facility] Comment on above: Left Heart Cath Start: 10-27-2024 Subsequent hospital visit by physician [facility] Procedural Care Unit Start: 10-18-2024 End: 10-18-2024 Patient encounter procedure 10/18/2024 1:20 PM EST Office Visit [facility] [address] [facility] 3[facility] floor [place] [phone] Woo Small MD [address] [place] [address] [facility] Start: 10-13-2024 Creatinine measurement Creatinine Level [facility] Start: 10-13-2024 Potassium measurement Potassium Level [facility] Start: 10-11-2024 Echocardiography Echocardiogram [facility] Start: 10-06-2024 Hemoglobin A1c measurement [facility] Start: 09-27-2024 Lipid panel Lipid Panel [facility] Start: 09-27-2024 Thyroid stimulating hormone measurement TSH Level [facility] Start: 08-29-2024 End: 08-29-2025 Comprehensive metabolic 2000 panel - Serum or Plasma Comprehensive metabolic panel Lab Routine Stage 3b chronic kidney disease (Multi) Expected: 08/29/2024 (Approximate), Expires: 08/29/2025 [facility] Service Area Work Phone: Comment on above: Expected: 08/29/2024 (Approximate), Expi res: 08/29/2025 Start: 08-29-2024 End: 08-29-2025 Microalbumin/Creatinine [Mass Ratio] in Urine Albumin-Creatinine Ratio, Urine Random Lab Routine Stage 3b chronic kidney disease (Multi) Expected: 08/29/2024 (Approximate), Expires: 08/29/2025 [facility] Work Phone: Comment on above: Expected: 08/29/2024 (Approximate), Expi res: 08/29/2025 Start: 08-29-2024 End: 08-29-2025 Urinalysis complete panel - Urine Urinalysis with Reflex Microscopic Lab Routine Stage 3b chronic kidney disease (Multi) Expected: 08/29/2024 (Approximate), Expires: 08/29/2025 [facility] Work Phone: Comment on above: Expected: 08/29/2024 (Approximate), Expi res: 08/29/2025 Start: 08-29-2024 End: 08-29-2024 Patient encounter procedure 08/29/2024 1:00 PM EDT Office Visit [facility] Medical Office Building [address] [place] [phone] Madie Albert, DISHWASHER PREPARER-AUTO CRANE DRIVER, DNP [address] [address] [facility] Start: 08-25-2024 End: 02-23-2025 Microalbumin/Creatinine [Mass Ratio] in Urine Albumin , Urine Random Lab Routine Stage 3b chronic kidney disease (Multi) Expected: 08/25/2024 (Approximate), Expires: 02/23/2025 [facility] Work Phone: Comment on above: Expected: 08/25/2024 (Approximate), Expi res: 02/23/2025 Start: 08-09-2024 Urine screening for protein Diabetes: Urine Protein Screening [facility] Start: 07-21-2024 End: 07-21-2024 Patient encounter procedure 07/21/2024 1:45 PM EDT Office Visit [facility] Endocrinology [address] [address] Paty Ortega, TRISTAN [address] [place] [address] [facility] [place] Start: 07-02-2024 COVID-19 Vaccine ( season) COVID-19 Vaccine ( season) [facility] Start: 07-02-2024 COVID-19 Vaccine () COVID-19 Vaccine () [facility] Start: 07-02-2024 Influenza vaccination [facility] Start: 06-21-2024 Diabetic foot examination [facility] Start: 05-31-2024 Urine screening for protein eGFR Diabetes [facility] Start: 04-24-2024 End: 04-24-2024 ambulatory [facility] Start: 04-24-2024 End: 04-24-2024 Patient encounter procedure 04/24/2024 9:40 AM EDT Office Visit [facility] [address] [facility] [place] [address] Woo Small MD [address] [place] [address] [facility] Start: 03-27-2024 Hemoglobin A1c measurement A1C [facility] Start: 02-26-2024 Hemoglobin A1c measurement [facility] Start: 02-24-2024 End: 02-23-2025 Basic metabolic 2000 panel - Serum or Plasma Basic metabolic panel Lab Routine Stage 3b chronic kidney disease (Multi) Expected: 02/24/2024 (Approximate), Expires: 02/23/2025 [facility] Service Area Work Phone: Comment on above: Expected: 02/24/2024 (Approximate), Expi res: 02/23/2025 Start: 02-24-2024 End: 02-23-2025 Phosphate [Mass/volume] in Serum or Plasma Phosphorus Lab Routine Stage 3b chronic kidney disease (Multi) Expected: 02/24/2024 (Approximate), Expires: 02/23/2025 [facility] Work Phone: Comment on above: Expected: 02/24/2024 (Approximate), Expi res: 02/23/2025 Start: 02-24-2024 End: 02-23-2025 Urate [Mass/volume] in Serum or Plasma Uric acid Lab Routine Stage 3b chronic kidney disease (Multi) Expected: 02/24/2024 (Approximate), Expires: 02/23/2025 [facility] Work Phone: Comment on above: Expected: 02/24/2024 (Approximate), Expi res: 02/23/2025 Start: 02-24-2024 End: 02-24-2024 Patient encounter procedure 02/24/2024 1:45 PM EDT Office Visit [facility] Medical Office [facility] [address] [place] [address] Madie Albert, DISHWASHER PREPARER-AUTO CRANE DRIVER, DNP [address] [id number] [facility] Medical Office [facility] Start: 02-20-2024 Diabetic foot examination Foot Exam [facility] Start: 02-18-2024 End: 02-18-2024 ambulatory [facility] [place] Start: 02-18-2024 End: 02-18-2024 Patient encounter procedure 02/18/2024 1:00 PM EDT Office Visit [facility] [place] [address] [place] [phone] Paty Ortega, TRISTAN [address] [place], [place] [id number] [facility] [place] Start: 02-13-2024 Lipid panel Lipid Panel [facility] Start: 02-13-2024 Thyroid stimulating hormone measurement TSH Level [facility] Start: 01-14-2024 End: 01-14-2024 ambulatory [facility] Start: 01-14-2024 End: 01-14-2024 Patient encounter procedure 01/14/2024 11:00 AM EDT Office Visit [facility] [address] [facility] [place] [address] Aylin Lacy CNP [address] [place] [address] [facility] Start: 01-12-2024 End: 01-12-2024 ambulatory [facility] Start: 01-12-2024 End: 01-12-2024 Patient encounter procedure [facility] Start: 01-10-2024 End: 10-08-2024 Comprehensive metabolic 2000 panel - Serum or Plasma Comprehensive Metabolic Panel Lab Routine 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) Expected: 01/10/2024 (Approximate), Expires: 10/08/2024 [facility] Work Phone: Comment on above: Expected: 01/10/2024 (Approximate), Expi res: 10/08/2024 Start: 01-10-2024 End: 10-08-2024 Hemoglobin A1c/Hemoglobin.total in Blood Hemoglobin A1c Lab Routine 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) Expected: 01/10/2024 (Approximate), Expires: 10/08/2024 [facility] Comment on above: Expected: 01/10/2024 (Approximate), Expi res: 10/08/2024 Start: 12-28-2023 Hemoglobin A1c measurement Diabetes: Hemoglobin A1C [facility] Start: 12-09-2023 Glaucoma screening Diabetes: Retinopathy Screening [facility] Start: 11-29-2023 End: 11-29-2023 Patient encounter procedure [facility] Start: 10-19-2023 Diabetic foot examination Foot Exam [facility] Start: 10-08-2023 End: 10-08-2023 Patient encounter procedure 10/08/2023 11:15 AM EST Office Visit [facility] [place] [address] [place] [address] Mary Vargas MD [address] [place] [address] [facility] [place] Start: 09-11-2023 Hemoglobin A1c measurement [facility] Start: 08-25-2023 End: 08-25-2024 Basic metabolic 2000 panel - Serum or Plasma Basic metabolic panel Lab Routine Stage 3b chronic kidney disease (CMS/HCC) Expected: 08/25/2023 (Approximate), Expires: 08/25/2024 [facility] Service Area Work Phone: Comment on above: Expected: 08/25/2023 (Approximate), Expi res: 08/25/2024 Start: 08-25-2023 End: 08-25-2024 Microalbumin/Creatinine [Mass Ratio] in Urine Albumin, urine, random Lab Routine Stage 3b chronic kidney disease (CMS/HCC) Expected: 08/25/2023 (Approximate), Expires: 08/25/2024 [facility] Work Phone: Comment on above: Expected: 08/25/2023 (Approximate), Expi res: 08/25/2024 Start: 07-02-2023 COVID-19 Vaccine ( season) COVID-19 Vaccine ( season) [facility] Start: 07-02-2023 Influenza vaccination [facility] Start: 06-21-2023 End: 06-21-2023 Patient encounter procedure 06/21/2023 1:15 PM EDT Office Visit [facility] [place] [address] [place] [phone] Paty Ortega, AUTO CRANE DRIVER [address] [place] [address] [facility] [place] Start: 06-19-2023 Diabetic foot examination Foot Exam [facility] Start: 06-01-2023 End: 02-20-2024 Comprehensive metabolic 2000 panel - Serum or Plasma Comprehensive Metabolic Panel Lab Routine 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) Expected: 06/01/2023, Expires: 02/20/2024 [facility] Work Phone: Comment on above: Expected: 06/01/2023, Expires: Start: 06-01-2023 End: 02-20-2024 Hemoglobin A1c/Hemoglobin.total in Blood Hemoglobin A1c Lab Routine 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) Expected: 06/01/2023, Expires: 02/20/2024 [facility] Comment on above: Expected: 06/01/2023, Expires: 4 Start: 05-14-2023 Hemoglobin A1c measurement A1C [facility] Start: 02-19-2023 End: 02-19-2023 Patient encounter procedure 02/19/2023 Office Visit Endocrinology Paty Ortega, AUTO CRANE DRIVER [address] [place] [address] [facility] [place] Start: 02-13-2023 Diabetic foot examination Foot Exam [facility] Start: 02-05-2023 End: 02-05-2023 Patient encounter procedure 02/05/2023 Appointment Cardiology Paty Ortega, [employer] [address] [place] [address] [facility] Start: 01-30-2023 End: 10-20-2023 Complete blood count with white cell differential, manual CBC and Differential Lab Routine 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) Expected: 01/30/2023, Expires: 10/20/2023 [facility] Comment on above: Expected: 01/30/2023, Expires: 3 Start: 01-30-2023 End: 10-20-2023 Comprehensive metabolic 2000 panel - Serum or Plasma Comprehensive Metabolic Panel Lab Routine 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) Expected: 01/30/2023, Expires: 10/20/2023 [facility] Comment on above: Expected: 01/30/2023, Expires: 3 Start: 01-30-2023 End: 10-20-2023 Hemoglobin A1c/Hemoglobin.total in Blood Hemoglobin A1c Lab Routine 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) Expected: 01/30/2023, Expires: 10/20/2023 [facility] Comment on above: Expected: 01/30/2023, Expires: 3 Start: 01-30-2023 End: 10-20-2023 Lipid 1996 panel - Serum or Plasma Lipid Panel Lab Routine 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) Expected: 01/30/2023, Expires: 10/20/2023 [facility] Comment on above: Expected: 01/30/2023, Expires: 3 Start: 01-30-2023 End: 10-19-2023 Microalbumin measurement, urine, quantitative Microalbumin/Creatinine Ratio, UR Random Lab Routine 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) Expected: 01/30/2023, Expires: 10/19/2023 [facility] Comment on above: Expected: 01/30/2023, Expires: 3 Start: 01-30-2023 End: 10-20-2023 Prostate specific Ag [Mass/volume] in Serum or Plasma PSA, Screen Lab Routine Prostate cancer screening Expected: 01/30/2023, Expires: 10/20/2023 [facility] Comment on above: Expected: 01/30/2023, Expires: 3 Start: 01-30-2023 End: 10-20-2023 Thyrotropin [Units/volume] in Serum or Plasma TSH Lab Routine 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) Expected: 01/30/2023, Expires: 10/20/2023 [facility] Comment on above: Expected: 01/30/2023, Expires: 3 Start: 01-30-2023 End: 10-20-2023 Thyroxine (T4) free [Mass/volume] in Serum or Plasma T4, Free Lab Routine 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) Expected: 01/30/2023, Expires: 10/20/2023 [facility] Comment on above: Expected: 01/30/2023, Expires: 3 Start: 01-25-2023 [email or web address], Provider: Zoila Lopez, Status: Angelo, Time: 2:45 PM PTFUADULT4, Provider: Zoila Lopez, Status: Angelo, Time: 2:45 PM [facility] Work Phone: Start: 01-18-2023 PTRECHECKA, Provider: Trosterud,Carlene, Status: Pen, Time: 2:00 PM PTRECHECKA, Provider: Carlene Whitehead, Status: Pen, Time: 2:00 PM [facility] Work Phone: Start: 01-15-2023 [email or web address], Provider: Chaya Chan, Status: Pen, Time: 10:00 AM PTFUADULT4, Provider: Chaya Chan, Status: Pen, Time: 10:00 AM [facility] Work Phone: Start: 01-13-2023 [email or web address], Provider: Chaya Chan, Status: Pen, Time: 10:00 AM PTFUADULT4, Provider: Chaya Chan, Status: Pen, Time: 10:00 AM [facility] Work Phone: Start: 01-08-2023 [email or web address], Provider: Chaya Chan, Status: Pen, Time: 10:00 AM PTFUADULT4, Provider: Chaya Chan, Status: Pen, Time: 10:00 AM [facility] Work Phone: Start: 01-06-2023 [email or web address], Provider: Zoila Lopez, Status: Pen, Time: 10:00 AM PTFUADULT4, Provider: Zoila Lopez, Status: Pen, Time: 10:00 AM [facility] Work Phone: Start: 01-01-2023 [email or web address], Provider: Zoila Lopez, Status: Pen, Time: 10:45 AM PTFUADULT4, Provider: Zoila Lpoez, Status: Pen, Time: 10:45 AM [facility] Work Phone: Start: 12-30-2022 [email or web address], Provider: Zoila Lopez, Status: Pen, Time: 4:15 PM PTFUADULT4, Provider: Zoila Lopez, Status: Pen, Time: 4:15 PM [facility] Work Phone: Start: 12-25-2022 [email or web address], Provider: Chaya Chan, Status: Pen, Time: 7:45 AM PTFUADULT4, Provider: Chaya Chan, Status: Pen, Time: 7:45 AM [facility] Work Phone: Start: 10-19-2022 End: 10-19-2022 Patient encounter procedure 10/19/2022 Office Visit Endocrinology Paty Ortega, TRISTAN [address] [place] [address] [facility] [place] Start: 10-13-2022 Diabetic foot examination Foot Exam [facility] Start: 09-08-2022 Hemoglobin A1c measurement A1C [facility] Start: 07-02-2022 Influenza vaccination [facility] Start: 06-20-2022 Diabetic foot examination Foot Exam [facility] Start: 06-19-2022 End: 06-19-2022 Patient encounter procedure 06/19/2022 Office Visit Endocrinology Paty Ortega CNP [address] [place] [address] [facility] [place] Start: 06-11-2022 Microalbumin measurement, urine, quantitative Urine Microalbumin [facility] Start: 05-27-2022 History and physical examination, annual for health maintenance Wellness Visit [facility] Start: 05-27-2022 Medicare Wellness Visit Medicare Wellness Visit [facility] Start: 04-13-2022 Hemoglobin A1c measurement A1C [facility] Start: 03-06-2022 COVID-19 Vaccine (4 - Booster for Moderna series) COVID-19 Vaccine (4 - Booster for Moderna series) [facility] Start: 02-18-2022 Diabetic foot examination Foot Exam [facility] Start: 02-13-2022 End: 02-13-2022 Patient encounter procedure 02/13/2022 Office Visit Endocrinology Mary Vargas MD [address] [place] [address] [facility] [place] Start: 01-30-2022 End: 10-14-2022 Comprehensive metabolic 2000 panel - Serum or Plasma Comprehensive Metabolic Panel Lab Routine 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) Expected: 01/30/2022, Expires: 10/14/2022 [facility] Work Phone: Comment on above: Expected: 01/30/2022, Expires: 2 Start: 01-30-2022 End: 10-14-2022 Hemoglobin A1c/Hemoglobin.total in Blood Hemoglobin A1c Lab Routine 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) Expected: 01/30/2022, Expires: 10/14/2022 [facility] Comment on above: Expected: 01/30/2022, Expires: 2 Start: 01-30-2022 End: 10-14-2022 Lipid 1996 panel - Serum or Plasma Lipid Panel Lab Routine 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) Expected: 01/30/2022, Expires: 10/14/2022 [facility] Comment on above: Expected: 01/30/2022, Expires: 2 Start: 01-01-2022 COVID-19 Vaccine (4 - Booster for Moderna series) COVID-19 Vaccine (4 - Booster for Moderna series) [facility] Start: 01-01-2022 COVID-19 Vaccine (4 - Moderna series) COVID-19 Vaccine (4 - Moderna series) [facility] Start: 12-12-2021 Hemoglobin A1c measurement A1C [facility] Start: 12-12-2021 Microalbumin measurement, urine, quantitative Urine Microalbumin [facility] Start: 12-12-2021 Urine screening for protein [facility] Start: 10-18-2021 Diabetic foot examination Foot Exam [facility] Start: 10-14-2021 Glaucoma screening [facility] Start: 10-13-2021 End: 10-13-2021 Patient encounter procedure 10/13/2021 Office Visit Endocrinology Paty Ortega, [employer]IVER [address] [place] [address] [facility] [place] Start: 10-03-2021 Albumin DL <= 20 mg/L (U) [Mass/Vol] Urine Microalbumin [facility] Start: 10-03-2021 Microalbumin measurement, urine, quantitative Urine Microalbumin [facility] Start: 10-01-2021 End: 06-21-2022 Comprehensive metabolic 2000 panel - Serum or Plasma Comprehensive Metabolic Panel Lab Routine Type 1 diabetes mellitus with diabetic polyneuropathy (HCC) Expected: 10/01/2021, Expires: 06/21/2022 [facility] Work Phone: Comment on above: Expected: 10/01/2021, Expires: 2 Start: 10-01-2021 End: 06-21-2022 Hemoglobin A1c/Hemoglobin.total in Blood Hemoglobin A1c Lab Routine Type 1 diabetes mellitus with diabetic polyneuropathy (HCC) Expected: 10/01/2021, Expires: 06/21/2022 [facility] Comment on above: Expected: 10/01/2021, Expires: 2 Start: 10-01-2021 End: 06-21-2022 Thyrotropin [Units/volume] in Serum or Plasma TSH Lab Routine Type 1 diabetes mellitus with diabetic polyneuropathy (HCC) Expected: 10/01/2021, Expires: 06/21/2022 [facility] Comment on above: Expected: 10/01/2021, Expires: 2 Start: 10-01-2021 End: 06-21-2022 Thyroxine (T4) free [Mass/volume] in Serum or Plasma T4, Free Lab Routine Type 1 diabetes mellitus with diabetic polyneuropathy (HCC) Expected: 10/01/2021, Expires: 06/21/2022 [facility] Comment on above: Expected: 10/01/2021, Expires: 2 Start: 09-11-2021 Hemoglobin A1c measurement A1C [facility] Start: 08-13-2021 Hemoglobin A1c measurement A1C [facility] Start: 07-31-2021 COVID-19 Vaccine (3 - Booster for Moderna series) COVID-19 Vaccine (3 - Booster for Moderna series) [facility] Start: 07-04-2021 Prostate specific antigen measurement PSA Level [facility] Start: 07-02-2021 Influenza vaccination Sequential Influenza Vaccine (#1) [facility] Start: 06-20-2021 End: 06-20-2021 Patient encounter procedure 06/20/2021 Office Visit Endocrinology Paty Ortega CNP [address] [place] [address] [phone] [facility] [place] Start: 04-16-2021 History and physical examination, annual for health maintenance Wellness Visit [facility] Start: 04-03-2021 HbA1c (Bld) [Mass fraction] A1C [facility] Start: 02-18-2021 End: 02-18-2021 Office Visit 02/18/2021 Office Visit Endocrinology Mary Vargas MD [address] [place] [address] [phone] [facility] Start: 02-02-2021 End: 10-19-2021 Comprehensive metabolic 2000 panel Comprehensive Metabolic Panel Lab Routine Type 1 diabetes mellitus with diabetic polyneuropathy (HCC) Expected: 02/02/2021, Expires: 10/19/2021 [facility] Comment on above: Expected: 02/02/2021, Expires: Start: 02-02-2021 End: 10-19-2021 Free T4 [Mass/Vol] T4, Free Lab Routine Type 1 diabetes mellitus with diabetic polyneuropathy (HCC) Expected: 02/02/2021, Expires: 10/19/2021 [facility] Comment on above: Expected: 02/02/2021, Expires: Start: 02-02-2021 End: 10-19-2021 HbA1c (Bld) [Mass fraction] Hemoglobin A1c Lab Routine Type 1 diabetes mellitus with diabetic polyneuropathy (HCC) Expected: 02/02/2021, Expires: 10/19/2021 [facility] Comment on above: Expected: 02/02/2021, Expires: Start: 02-02-2021 End: 10-19-2021 TSH Qn TSH Lab Routine Type 1 diabetes mellitus with diabetic polyneuropathy (HCC) Expected: 02/02/2021, Expires: 10/19/2021 [facility] Comment on above: Expected: 02/02/2021, Expires: Start: 12-11-2020 HbA1c (Bld) [Mass fraction] A1C [facility] Start: 11-16-2020 Diabetic foot examination Foot Exam [facility] Start: 10-18-2020 End: 10-18-2020 Office Visit 10/18/2020 Office Visit Endocrinology Keeley Patton, [employer] DRIVER [address] [address] [phone] [facility] Start: 10-01-2020 End: 06-19-2021 Comprehensive metabolic 2000 panel Comprehensive Metabolic Panel Lab Routine Type 1 diabetes mellitus with diabetic polyneuropathy (HCC) Expected: 10/01/2020, Expires: 06/19/2021 [facility] Comment on above: Expected: 10/01/2020, Expires: 1 Start: 10-01-2020 End: 06-19-2021 HbA1c (Bld) [Mass fraction] Hemoglobin A1c Lab Routine Type 1 diabetes mellitus with diabetic polyneuropathy (HCC) Expected: 10/01/2020, Expires: 06/19/2021 [facility] Comment on above: Expected: 10/01/2020, Expires: 1 Start: 10-01-2020 End: 06-19-2021 Lipid 1996 panel Lipid Panel Lab Routine Type 1 diabetes mellitus with diabetic polyneuropathy (HCC) Expected: 10/01/2020, Expires: 06/19/2021 [facility] Comment on above: Expected: 10/01/2020, Expires: 1 Start: 10-01-2020 End: 06-18-2021 Microalbumin measurement, urine, quantitative Microalbumin/Creatinine Ratio, UR Random Lab Routine Type 1 diabetes mellitus with diabetic polyneuropathy (HCC) Expected: 10/01/2020, Expires: 06/18/2021 [facility] Comment on above: Expected: 10/01/2020, Expires: 1 Start: 07-17-2020 Diabetic foot examination FOOT EXAM [facility] Start: 07-02-2020 Influenza vaccination Sequential Influenza Vaccine (#1) [facility] Start: 07-02-2020 Influenza vaccination given Sequential Influenza Vaccine (#1) [facility] Start: 05-03-2020 HbA1c (Bld) [Mass fraction] A1C [facility] Start: 03-15-2020 End: 03-15-2020 Office Visit 03/15/2020 Office Visit Endocrinology Keeley Patton, [employer] DRIVER [address] [facility] [place] [address] [phone] [facility] Start: 03-13-2020 Diabetic foot examination FOOT EXAM [facility] Start: 01-02-2020 HbA1c (Bld) [Mass fraction] A1C [facility] Start: 11-16-2019 End: 11-16-2019 Office Visit 11/16/2019 Office Visit Endocrinology Paty Ortega, [employer] CR[employer] DRIVER [address] [facility] [place] [address] [phone] [facility] Start: 11-11-2019 Diabetic foot examination FOOT EXAM [facility] Start: 07-17-2019 End: 07-17-2019 Office Visit 07/17/2019 Office Visit Endocrinology Keeley Patton, AUT[employer] CRANE DRIVER [address] [address] [phone] [facility] Start: 07-05-2019 Diabetic foot examination FOOT EXAM [facility] Start: 07-02-2019 Influenza vaccination given [facility] Start: 03-13-2019 End: 03-13-2019 Ambulatory 03/13/2019 Office Visit Endocrinology Mary Vargas MD [address] [address] [phone] [facility] Start: 02-28-2019 Diabetic foot examination (regime/therapy) FOOT EXAM [facility] Start: 01-31-2019 Pneumococcal vaccination PNEUMOCOCCAL VACCINE AGE 65+ (2 of 2 - PPSV23) [facility] Start: 2018 Respiratory Syncytial Virus Immunization: Risk, 60-74 Risk, or 75+ (1 - 1-dose 75+ series) Respiratory Syncytial Virus Immunization: Risk, 60-74 Risk, or 75+ (1 - 1-dose 75+ series) [facility] Start: 2018 RSV High Risk: (Elderly (60+) or Population) (1 - 1-dose 75+ series) RSV High Risk: (Elderly (60+) or Population) (1 - 1-dose 75+ series) [facility] Start: 11-08-2018 End: 11-08-2018 Ambulatory 11/08/2018 Office Visit Endocrinology Ya Parker PA-C [address] [facility] [address] [place] [address] [phone] [facility] Start: 10-29-2018 Diabetic foot examination (regime/therapy) FOOT EXAM [facility] Work Phone: Start: 07-05-2018 End: 07-05-2018 Ambulatory 07/05/2018 Office Visit Endocrinology Paty Ortega, TRISTAN [address] [facility] [address] [place] [address] [phone] [facility] Start: 07-02-2018 Influenza vaccination [facility] Start: 07-02-2018 Influenza vaccination given SEQUENTIAL INFLUENZA VACCINE (#1) [facility] Start: 02-28-2018 Ambulatory 02/28/2018 Office Visit Endocrinology Alexandra Givens, TRISTAN [address] [facility] [address] [place] [address] [phone] [facility] Start: 02-15-2018 3 comp foot exam completed FOOT EXAM [facility] Work Phone: Start: 10-29-2017 Ambulatory 10/29/2017 Office Visit Endocrinology Mary Vargas MD [address] [facility] [address] [place] [address] [phone] [facility] Start: 07-02-2017 Influenza vaccination SEQUENTIAL INFLUENZA VACCINE (#1) [facility] Work Phone: Start: 07-02-2017 SEQUENTIAL INFLUENZA VACCINE (#1) SEQUENTIAL INFLUENZA VACCINE (#1) [facility] Work Phone: Start: 05-10-2017 HbA1c [facility] Work Phone: Start: 2008 ABDOMINAL AORTIC ULTRASOUND ABDOMINAL AORTIC ULTRASOUND [facility] Work Phone: Start: 2008 Fall risk assessment [facility] Start: 2008 Pneumococcal vaccination PNEUMOCOCCAL VACCINE AGE 65+ (1 of 2 - PCV13) [facility] Work Phone: Start: 2008 PNEUMOCOCCAL VACCINE AGE 65+ (1 of 2 - PCV13) PNEUMOCOCCAL VACCINE AGE 65+ (1 of 2 - PCV13) [facility] Work Phone: Start: 2008 Ultrasound scan of abdominal aorta ABDOMINAL AORTIC ULTRASOUND [facility] Work Phone: Start: 2003 RSV patients and/or patients aged 60+ years (1 - 1-dose 60+ series) RSV patients and/or patients aged 60+ years (1 - 1-dose 60+ series) [facility] Start: 2003 Zoster vacc, sc ZOSTER VACCINE [facility] Work Phone: Start: 1993 Administration of herpes zoster vaccine ZOSTER VACCINES (1 of 2) [facility] Start: 1993 ZOSTER VACCINES (1 of 2) ZOSTER VACCINES (1 of 2) [facility] Start: 1965 DTaP/Tdap/Td Vaccines (1 - Tdap) DTaP/Tdap/Td Vaccines (1 - Tdap) [facility] Start: 1961 Hepatitis C antibody, confirmatory test Hepatitis C Screening [facility] Start: 1961 Hepatitis C screening Hepatitis C Screening [facility] Start: 1955 Adolescent depression screening assessment Depression Screening (PHQ9) [facility] Start: 1955 Depression screening using PHQ-9 (Patient Health Questionnaire 9) score [facility] Start: 1953 Albumin Test strip detection limit <= 20 mg/L mass conc (U) URINE MICROALBUMIN [facility] Work Phone: Start: 1953 Diabetic foot examination Diabetes: Foot Exam [facility] Start: 1953 Glaucoma screening [facility] Start: 1953 Ophthalmic examination and evaluation OPHTHALMOLOGY EXAM [facility] Start: 1953 Urine, microalbumin URINE MICROALBUMIN [facility] Work Phone: Start: 1949 Pneumococcal Vaccine: Age 65+ (1 of 2 - PPSV23) Pneumococcal Vaccine: Age 65+ (1 of 2 - PPSV23) [facility] Start: 1946 History and physical examination, annual for health maintenance Wellness Visit [facility] Start: 1943 End: 1943 Low-dose CT Lung Cancer Screen Low-dose CT Lung Cancer Screen [facility] Work Phone: Start: 1943 Protein mass conc COLONOSCOPY [facility] Start: 1943 Screening colonoscopy COLONOSCOPY [facility] Work Phone: Start: 1943 End: 1943 Screening for malignant neoplasm of lung Low-dose CT Lung Cancer Screen [facility] Start: 1943 End: 1943 Tetanus vaccination [facility] Start: 1943 Colonoscopy COLONOSCOPY [facility] Work Phone: Start: 1943 Cyanocobalamin vitamin b-12 Vitamin B-12 [facility] Start: 1943 Diabetes: Celiac Disease Screening Diabetes: Celiac Disease Screening [facility] Start: 1943 Fall risk assessment Falls Risk Assessment [facility] Start: 1943 Low dose computed tomography of chest without contrast Low-dose CT Lung Cancer Screen [facility] Start: 1943 Medicare Annual Wellness Visit Medicare Annual Wellness Visit (AWV) [facility] Start: 1943 Prostate specific antigen measurement PSA Level [facility] Start: 1943 Screening for malignant neoplasm of colon Colorectal Cancer Screening: Colonoscopy [facility] Start: 1943 TETANUS EVERY 10 YR TETANUS EVERY 10 YR [facility] Work Phone: Alanine aminotransferase [Enzymatic activity/volume] in Serum or Plasma [facility] Albumin [Mass/volume ] in Serum or Plasma [facility] Alkaline phosphatase [Enzymatic activity/volume] in Serum or Plasma [facility] Anion gap in Serum o r Plasma [facility] aPTT in Platelet poo r plasma by Coagulation assay aPTT - baseline Lab STAT As needed (Lab) for 1 Occurrences starting 11/26/2023 [facility] Work Phone: Comment on above: As needed (Lab) for 1 Occurrences starti ng 11/26/2023 Bacteria identified in Blood by Culture [facility] Work Phone: End: 11-26-2023 Bacteria identified in Blood by Culture [facility] Work Phone: Comment on above: STAT (Lab) for 1 Occurrences starting until 11/26/2023 Bacteria identified in Blood by Culture [facility] Work Phone: End: 10-27-2024 Bacteria identified in Unspecified specimen by Aerobe culture [facility] Work Phone: Comment on above: Once for 1 Occurrences starting 10/27/20 until 10/27/2024 End: 06-18-2018 Basic metabolic 2000 panel Basic Metabolic Panel Routine 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) 1 Occurrences starting 06/17/2017 until 06/18/2018 [facility] Work Phone: Comment on above: 1 Occurrences starting 06/17/2017 until 06/18/2018 End: 10-14-2023 Basic metabolic 2000 panel - Serum or Plasma Basic Metabolic Panel Lab Routine Morning draw (Lab) for 3 Occurrences starting 10/12/2023 until 10/14/2023, 1 completed [facility] Work Phone: Comment on above: Morning draw (Lab) for 3 Occurrences sta rting 10/12/2023 until 10/14/2023, 1 completed End: 03-09-2026 Basic metabolic 2000 panel - Serum or Plasma Basic metabolic panel Lab Routine 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 NSTEMI (non-ST elevated myocardial infarction) (HCC) 1 Occurrences starting 03/09/2025 until 03/09/2026 [facility] Work Phone: Comment on above: 1 Occurrences starting 03/09/2025 until 03/09/2026 Bilirubin, total measurement [facility] BUN/Creatinine ratio [facility] Calcium [Mass/volume ] in Serum or Plasma [facility] Carbon dioxide, tota l [Moles/volume] in Central venous blood [facility] End: 04-20-2022 Carotid artery doppler assessment Ultrasound doppler carotid Vascular Ultrasound Routine Bilateral carotid artery stenosis 1 Occurrences starting 02/18/2021 until 04/20/2022 [facility] Comment on above: 1 Occurrences starting 02/18/2021 until 04/20/2022 End: 12-20-2023 Carotid artery doppler assessment Ultrasound doppler carotid Vascular Ultrasound Routine Bilateral carotid artery stenosis 1 Occurrences starting 10/19/2022 until 12/20/2023 [facility] Work Phone: Comment on above: 1 Occurrences starting 10/19/2022 until 12/20/2023 Cath plmt l hrt & ar ts w/njx & angio img s&i LEFT HEART CATH Cardiovascular stress test abnormal Fatigue, unspecified type SOB (shortness of breath) [facility] End: 02-28-2019 CBC and Differential CBC and Differential Routine 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) 1 Occurrences starting 02/28/2018 until 02/28/2019 [facility] CBC panel - Blood by Automated count CBC Lab STAT As needed (Lab) for 1 Occurrences starting 11/26/2023 [facility] Work Phone: Comment on above: As needed (Lab) for 1 Occurrences starti ng 11/26/2023 End: 12-02-2023 CBC panel - Blood by Automated count CBC Lab STAT Every other day (Lab) for 3 Occurrences starting 11/28/2023 until 12/02/2023 [facility] Work Phone: Comment on above: Every other day (Lab) for 3 Occurrences starting 11/28/2023 until 12/02/2023 End: 10-14-2023 CBC W Auto Differential panel - Blood CBC and Auto Differential Lab Routine Morning draw (Lab) for 3 Occurrences starting 10/12/2023 until 10/14/2023, 2 completed [facility] Work Phone: Comment on above: Morning draw (Lab) for 3 Occurrences sta rting 10/12/2023 until 10/14/2023, 2 completed Cholesterol [Mass/volume] in Serum or Plasma [facility] Cholesterol in HDL [Mass/volume] in Serum or Plasma [facility] End: 11-11-2019 Complete blood count with white cell differential, manual CBC and Differential Routine Type 1 diabetes mellitus with diabetic neuropathy (HCC) 1 Occurrences starting 11/11/2018 until 11/11/2019 [facility] Comment on above: 1 Occurrences starting 11/11/2018 until 11/11/2019 End: 03-13-2020 Complete blood count with white cell differential, manual CBC and Differential Routine 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) 1 Occurrences starting 03/13/2019 until 03/13/2020 [facility] Comment on above: 1 Occurrences starting 03/13/2019 until 03/13/2020 End: 02-19-2022 Complete blood count with white cell differential, manual CBC and Differential Lab Routine Type 1 diabetes mellitus with diabetic polyneuropathy (HCC) 1 Occurrences starting 02/18/2021 until 02/19/2022 [facility] Comment on above: 1 Occurrences starting 02/18/2021 until 02/19/2022 End: 02-14-2023 Complete blood count with white cell differential, manual CBC and Differential Lab Routine Type 1 diabetes mellitus with diabetic neuropathy (HCC) 1 Occurrences starting 02/13/2022 until 02/14/2023 [facility] Work Phone: Comment on above: 1 Occurrences starting 02/13/2022 until 02/14/2023 End: 02-18-2025 Complete blood count with white cell differential, manual CBC and Differential Lab Routine Type 1 diabetes mellitus with diabetic neuropathy (HCC) 1 Occurrences starting 02/18/2024 until 02/18/2025 [facility] Comment on above: 1 Occurrences starting 02/18/2024 until 02/18/2025 End: 07-22-2025 Complete blood count with white cell differential, manual CBC and Differential Lab Routine Type 1 diabetes mellitus with diabetic neuropathy (HCC) 1 Occurrences starting 07/21/2024 until 07/22/2025 [facility] Comment on above: 1 Occurrences starting 07/21/2024 until 07/22/2025 End: 03-13-2026 Complete blood count with white cell differential, manual CBC and Differential Lab Routine Type 1 diabetes mellitus with diabetic neuropathy (HCC) 1 Occurrences starting 03/12/2025 until 03/13/2026 [facility] Comment on above: 1 Occurrences starting 03/12/2025 until 03/13/2026 End: 10-27-2025 Complete PFT with Pre and Post Bronchodilator Complete PFT with Pre and Post Bronchodilator PFT Routine Pulmonary emphysema, unspecified emphysema type (HCC) 1 Occurrences starting 10/27/2024 until 10/27/2025 [facility] Comment on above: 1 Occurrences starting 10/27/2024 until 10/27/2025 End: 07-06-2019 Comprehensive metabolic 2000 panel Comprehensive Metabolic Panel Routine Type 1 diabetes mellitus with diabetic neuropathy (HCC) 1 Occurrences starting 07/05/2018 until 07/06/2019 [facility] Comment on above: 1 Occurrences starting 07/05/2018 until 07/06/2019 End: 11-11-2019 Comprehensive metabolic 2000 panel Comprehensive Metabolic Panel Routine Essential hypertension 1 Occurrences starting 11/11/2018 until 11/11/2019 [facility] Comment on above: 1 Occurrences starting 11/11/2018 until 11/11/2019 End: 07-17-2020 Comprehensive metabolic 2000 panel Comprehensive Metabolic Panel Lab Routine Type 1 diabetes mellitus with diabetic polyneuropathy (HCC) 1 Occurrences starting 07/17/2019 until 07/17/2020 [facility] Comment on above: 1 Occurrences starting 07/17/2019 until 07/17/2020 End: 11-16-2020 Comprehensive metabolic 2000 panel Comprehensive Metabolic Panel Lab Routine Type I diabetes mellitus with neurological manifestations, uncontrolled (HCC) 1 Occurrences starting 11/16/2019 until 11/16/2020 [facility] Comment on above: 1 Occurrences starting 11/16/2019 until 11/16/2020 End: 03-13-2020 Comprehensive metabolic 2000 panel Comprehensive Metabolic Panel Routine 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) 1 Occurrences starting 03/13/2019 until 03/13/2020 [facility] Comment on above: 1 Occurrences starting 03/13/2019 until 03/13/2020 End: 02-19-2022 Comprehensive metabolic 2000 panel - Serum or Plasma Comprehensive Metabolic Panel Lab Routine Type 1 diabetes mellitus with diabetic polyneuropathy (HCC) 1 Occurrences starting 02/18/2021 until 02/19/2022 [facility] Comment on above: 1 Occurrences starting 02/18/2021 until 02/19/2022 End: 02-14-2023 Comprehensive metabolic 2000 panel - Serum or Plasma Comprehensive Metabolic Panel Lab Routine Type 1 diabetes mellitus with diabetic neuropathy (HCC) 1 Occurrences starting 02/13/2022 until 02/14/2023 [facility] Comment on above: 1 Occurrences starting 02/13/2022 until 02/14/2023 End: 06-20-2023 Comprehensive metabolic 2000 panel - Serum or Plasma Comprehensive Metabolic Panel Lab Routine Type 1 diabetes mellitus with diabetic neuropathy (HCC) 1 Occurrences starting 06/19/2022 until 06/20/2023 [facility] Work Phone: Comment on above: 1 Occurrences starting 06/19/2022 until 06/20/2023 End: 02-18-2025 Comprehensive metabolic 2000 panel - Serum or Plasma Comprehensive Metabolic Panel Lab Routine Type 1 diabetes mellitus with diabetic neuropathy (HCC) 1 Occurrences starting 02/18/2024 until 02/18/2025 [facility] Work Phone: Comment on above: 1 Occurrences starting 02/18/2024 until 02/18/2025 End: 07-22-2025 Comprehensive metabolic 2000 panel - Serum or Plasma Comprehensive Metabolic Panel Lab Routine Type 1 diabetes mellitus with diabetic neuropathy (HCC) 1 Occurrences starting 07/21/2024 until 07/22/2025 [facility] Work Phone: Comment on above: 1 Occurrences starting 07/21/2024 until 07/22/2025 End: 11-14-2025 Comprehensive metabolic 2000 panel - Serum or Plasma Comprehensive Metabolic Panel Lab Routine Type 1 diabetes mellitus with diabetic neuropathy (HCC) 1 Occurrences starting 11/13/2024 until 11/14/2025 [facility] Work Phone: Comment on above: 1 Occurrences starting 11/13/2024 until 11/14/2025 End: 03-13-2026 Comprehensive metabolic 2000 panel - Serum or Plasma Comprehensive Metabolic Panel Lab Routine Type 1 diabetes mellitus with diabetic neuropathy (HCC) 1 Occurrences starting 03/12/2025 until 03/13/2026 [facility] Work Phone: Comment on above: 1 Occurrences starting 03/12/2025 until 03/13/2026 End: 02-28-2019 Comprehensive metabolic panel [AGGREGATE] Comprehensive Metabolic Panel Routine Type 1 diabetes mellitus with diabetic neuropathy (HCC) Essential hypertension 1 Occurrences starting 02/28/2018 until 02/28/2019 [facility] End: 10-30-2018 Comprehensive metabolic panel [AGGREGATE] Comprehensive Metabolic Panel Routine Type 1 diabetes mellitus with diabetic neuropathy (HCC) Essential hypertension Pure hypercholesterolemia 1 Occurrences starting 10/29/2017 until 10/30/2018 [facility] Work Phone: Creatinine [Mass/volume] in Serum or Plasma [facility] End: 11-26-2023 ECG 12 lead [facility] Work Phone: Comment on above: Once for 1 Occurrences starting 11/26/19 24 until 11/26/2023 Electrocardiogram, 12-lead PRN ACS symptoms Electrocardiogram, 12-lead PRN ACS symptoms ECG Routine As needed until discontinued starting 10/11/2023 [facility] Work Phone: Comment on above: As needed until discontinued starting Electrocardiogram, 12-lead PRN ACS symptoms Electrocardiogram, 12-lead PRN ACS symptoms ECG Routine As needed until discontinued starting 10/11/2023 [facility] Work Phone: Comment on above: As needed until discontinued starting Erythrocyte mean corpuscular volume determination [facility] End: 02-28-2019 External Lab Microalbumin/Creatinine External Lab Microalbumin/Creatinine Routine Type 1 diabetes mellitus with diabetic neuropathy (HCC) Essential hypertension 1 Occurrences starting 02/28/2018 until 02/28/2019 [facility] End: 11-11-2019 External Lab Microalbumin/Creatinine External Lab Microalbumin/Creatinine Routine Essential hypertension 1 Occurrences starting 11/11/2018 until 11/11/2019 [facility] Comment on above: 1 Occurrences starting 11/11/2018 until 11/11/2019 End: 02-19-2022 External Lab Microalbumin/Creatinine External Lab Microalbumin/Creatinine Lab Routine Type 1 diabetes mellitus with diabetic polyneuropathy (HCC) 1 Occurrences starting 02/18/2021 until 02/19/2022 [facility] Comment on above: 1 Occurrences starting 02/18/2021 until 02/19/2022 End: 02-14-2023 External Lab Microalbumin/Creatinine External Lab Microalbumin/Creatinine Lab Routine Type 1 diabetes mellitus with diabetic neuropathy (HCC) 1 Occurrences starting 02/13/2022 until 02/14/2023 [facility] Comment on above: 1 Occurrences starting 02/13/2022 until 02/14/2023 Glucose [Mass/volume ] in Serum or Plasma POCT GLUCOSE Point of Care Testing Routine 4x daily - AC and at bedtime until discontinued starting 10/11/2023 [facility] Work Phone: Comment on above: 4x daily - AC and at bedtime until disco ntinued starting 10/11/2023 End: 10-15-2023 Glucose [Mass/volume] in Serum or Plasma POCT GLUCOSE Point of Care Testing Routine 4 times daily before meals and at bedtime for 3 Days starting 10/12/2023 until 10/15/2023 [facility] Work Phone: Comment on above: 4 times daily before meals and at bedtim e for 3 Days starting 10/12/2023 until 10/15/2023 Glucose [Mass/volume ] in Serum or Plasma [facility] End: 02-28-2019 HbA1c Hemoglobin A1c Routine Type 1 diabetes mellitus with diabetic neuropathy (HCC) Essential hypertension 1 Occurrences starting 02/28/2018 until 02/28/2019 [facility] End: 10-30-2018 HbA1c Hemoglobin A1c Routine Type 1 diabetes mellitus with diabetic neuropathy (HCC) Essential hypertension Pure hypercholesterolemia 1 Occurrences starting 10/29/2017 until 10/30/2018 [facility] Work Phone: End: 07-17-2020 HbA1c (Bld) [Mass fraction] Hemoglobin A1c Lab Routine Type 1 diabetes mellitus with diabetic polyneuropathy (HCC) 1 Occurrences starting 07/17/2019 until 07/17/2020 [facility] Comment on above: 1 Occurrences starting 07/17/2019 until 07/17/2020 End: 11-16-2020 HbA1c (Bld) [Mass fraction] Hemoglobin A1c Lab Routine Type I diabetes mellitus with neurological manifestations, uncontrolled (HCC) 1 Occurrences starting 11/16/2019 until 11/16/2020 [facility] Comment on above: 1 Occurrences starting 11/16/2019 until 11/16/2020 End: 03-13-2020 HbA1c (Bld) [Mass fraction] Hemoglobin A1c Routine 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) 1 Occurrences starting 03/13/2019 until 03/13/2020 [facility] Comment on above: 1 Occurrences starting 03/13/2019 until 03/13/2020 Hematocrit [Volume Fraction] of Blood [facility] Hemoglobin [Mass/volume] in Blood [facility] End: 02-19-2022 Hemoglobin A1c/Hemoglobin.total in Blood Hemoglobin A1c Lab Routine Type 1 diabetes mellitus with diabetic polyneuropathy (HCC) 1 Occurrences starting 02/18/2021 until 02/19/2022 [facility] Comment on above: 1 Occurrences starting 02/18/2021 until 02/19/2022 End: 02-14-2023 Hemoglobin A1c/Hemoglobin.total in Blood Hemoglobin A1c Lab Routine Type 1 diabetes mellitus with diabetic neuropathy (HCC) 1 Occurrences starting 02/13/2022 until 02/14/2023 [facility] Comment on above: 1 Occurrences starting 02/13/2022 until 02/14/2023 End: 06-20-2023 Hemoglobin A1c/Hemoglobin.total in Blood Hemoglobin A1c Lab Routine Type 1 diabetes mellitus with diabetic neuropathy (HCC) 1 Occurrences starting 06/19/2022 until 06/20/2023 [facility] Comment on above: 1 Occurrences starting 06/19/2022 until 06/20/2023 End: 02-18-2025 Hemoglobin A1c/Hemoglobin.total in Blood Hemoglobin A1c Lab Routine Type 1 diabetes mellitus with diabetic neuropathy (HCC) 1 Occurrences starting 02/18/2024 until 02/18/2025 [facility] Comment on above: 1 Occurrences starting 02/18/2024 until 02/18/2025 End: 07-22-2025 Hemoglobin A1c/Hemoglobin.total in Blood Hemoglobin A1c Lab Routine Type 1 diabetes mellitus with diabetic neuropathy (HCC) 1 Occurrences starting 07/21/2024 until 07/22/2025 [facility] Comment on above: 1 Occurrences starting 07/21/2024 until 07/22/2025 End: 11-14-2025 Hemoglobin A1c/Hemoglobin.total in Blood Hemoglobin A1c Lab Routine Type 1 diabetes mellitus with diabetic neuropathy (HCC) 1 Occurrences starting 11/13/2024 until 11/14/2025 [facility] Comment on above: 1 Occurrences starting 11/13/2024 until 11/14/2025 End: 03-13-2026 Hemoglobin A1c/Hemoglobin.total in Blood Hemoglobin A1c Lab Routine Type 1 diabetes mellitus with diabetic neuropathy (HCC) 1 Occurrences starting 03/12/2025 until 03/13/2026 [facility] Comment on above: 1 Occurrences starting 03/12/2025 until 03/13/2026 End: 07-06-2019 Hemoglobin A1c/Hemoglobin.total mass fraction (Bld) Hemoglobin A1c Routine Type 1 diabetes mellitus with diabetic neuropathy (HCC) 1 Occurrences starting 07/05/2018 until 07/06/2019 [facility] Comment on above: 1 Occurrences starting 07/05/2018 until 07/06/2019 End: 11-11-2019 Hemoglobin A1c/Hemoglobin.total mass fraction (Bld) Hemoglobin A1c Routine Type 1 diabetes mellitus with diabetic neuropathy (HCC) 1 Occurrences starting 11/11/2018 until 11/11/2019 [facility] Comment on above: 1 Occurrences starting 11/11/2018 until 11/11/2019 End: 06-18-2018 Hemoglobin A1c/Hemoglobin.total mass fraction (Bld) Hemoglobin A1c Routine Type 1 diabetes mellitus with diabetic neuropathy (HCC) 1 Occurrences starting 06/17/2017 until 06/18/2018 [facility] Work Phone: Comment on above: 1 Occurrences starting 06/17/2017 until 06/18/2018 Heparin unfractionat ed [Units/volume] in Platelet poor plasma by Chromogenic method [facility] Work Phone: Comment on above: As needed (Lab) for 1 Occurrences starti ng 11/26/2023 As needed (Lab) for 30 Occurrences starting 11/26/2023 End: 10-13-2023 Home O2 eval (desaturation screen) Home O2 eval (desaturation screen) Respiratory Care Routine Once for 1 Occurrences starting 10/13/2023 until 10/13/2023 [facility] Service [facility] Work Phone: Comment on above: Once for 1 Occurrences starting 10/13/20 until 10/13/2023 Legionella pneumophi la Ag [Presence] in Urine [facility] Leukocytes [#/volume ] in Blood [facility] End: 11-11-2019 Lipid 1996 panel Lipid Panel Routine Type 1 diabetes mellitus with diabetic neuropathy (HCC) 1 Occurrences starting 11/11/2018 until 11/11/2019 [facility] Comment on above: 1 Occurrences starting 11/11/2018 until 11/11/2019 End: 07-17-2020 Lipid 1996 panel Lipid Panel Lab Routine Pure hypercholesterolemia 1 Occurrences starting 07/17/2019 until 07/17/2020 [facility] Comment on above: 1 Occurrences starting 07/17/2019 until 07/17/2020 End: 02-19-2022 Lipid 1996 panel - Serum or Plasma Lipid Panel Lab Routine Type 1 diabetes mellitus with diabetic polyneuropathy (HCC) 1 Occurrences starting 02/18/2021 until 02/19/2022 [facility] Comment on above: 1 Occurrences starting 02/18/2021 until 02/19/2022 End: 02-18-2025 Lipid 1996 panel - Serum or Plasma Lipid Panel Lab Routine Type 1 diabetes mellitus with diabetic neuropathy (HCC) 1 Occurrences starting 02/18/2024 until 02/18/2025 [facility] Comment on above: 1 Occurrences starting 02/18/2024 until 02/18/2025 End: 07-22-2025 Lipid 1996 panel - Serum or Plasma Lipid Panel Lab Routine Type 1 diabetes mellitus with diabetic neuropathy (HCC) 1 Occurrences starting 07/21/2024 until 07/22/2025 [facility] Comment on above: 1 Occurrences starting 07/21/2024 until 07/22/2025 End: 11-14-2025 Lipid 1996 panel - Serum or Plasma Lipid Panel Lab Routine Type 1 diabetes mellitus with diabetic neuropathy (HCC) Pure hypercholesterolemia 1 Occurrences starting 11/13/2024 until 11/14/2025 [facility] Comment on above: 1 Occurrences starting 11/13/2024 until 11/14/2025 End: 03-13-2026 Lipid 1996 panel - Serum or Plasma Lipid Panel Lab Routine Type 1 diabetes mellitus with diabetic neuropathy (HCC) 1 Occurrences starting 03/12/2025 until 03/13/2026 [facility] Comment on above: 1 Occurrences starting 03/12/2025 until 03/13/2026 End: 02-28-2019 Lipid panel Lipid Panel Routine Type 1 diabetes mellitus with diabetic neuropathy (HCC) 1 Occurrences starting 02/28/2018 until 02/28/2019 [facility] Low density lipoprot ein cholesterol measurement [facility] Mean corpuscular hemoglobin concentration determination [facility] Mean corpuscular hemoglobin determination [facility] Measurement of renal function [facility] Neutrophil count [facility] Neutrophil percent differential count [facility] Noninvasive Ventilation Noninvas frank Ventilation Respiratory Care Routine For RT frequency use only for continuous procedures with task-based reminders at 8a and 8p until discontinued starting 11/26/2023 [facility] Work Phone: Comment on above: For RT frequency use only for continuous procedures with task-based reminders at 8a and 8p until discontinued starting 11/26/2023 Patient Education Hemodialysis E D Hemodialysis [facility] Work Phone: Patient referral [facility] Work Phone: Platelets [#/volume] in Blood [facility] Potassium measurement [facility] Procalcitonin [Mass/volume] in Serum or Plasma by Immunoassay [facility] End: 03-12-2020 Prostate specific Ag [Mass/Vol] PSA, Screen Routine Prostate cancer screening 1 Occurrences starting 03/13/2019 until 03/12/2020 [facility] Comment on above: 1 Occurrences starting 03/13/2019 until 03/12/2020 End: 02-13-2023 Prostate specific Ag [Mass/volume] in Serum or Plasma PSA, Screen Lab Routine Prostate cancer screening 1 Occurrences starting 02/13/2022 until 02/13/2023 [facility] Comment on above: 1 Occurrences starting 02/13/2022 until 02/13/2023 Prothrombin time (PT) Protime-IN R Lab STAT As needed (Lab) for 1 Occurrences starting 11/26/2023 [facility] Work Phone: Comment on above: As needed (Lab) for 1 Occurrences starti ng 11/26/2023 End: 10-29-2018 PSA, Screen PSA, Screen Routine Prostate cancer screening 1 Occurrences starting 10/29/2017 until 10/29/2018 [facility] Work Phone: Red blood cell count [facility] Red cell distributio n width determination [facility] End: 10-11-2023 Respiratory care eval and treat Respiratory care eval and treat Respiratory Care Routine Once for 1 Occurrences starting 10/11/2023 until 10/11/2023 [facility] Work Phone: Comment on above: Once for 1 Occurrences starting 10/11/20 23 until 10/11/2023 Respiratory pathogen s DNA and RNA panel - Respiratory specimen by ALICE with probe detection [facility] Serum chloride measurement [facility] Sodium measurement [facility] [place] End: 10-21-2024 SPECT Heart perfusion NM Myocardial Perfusion Multiple SPECT Imaging Routine Congestive heart failure, unspecified HF chronicity, unspecified heart failure type (HCC) 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 1 Occurrences starting 10/21/2023 until 10/21/2024 [facility] Work Phone: Comment on above: 1 Occurrences starting 10/21/2023 until 10/21/2024 End: 11-11-2019 T4 free mass conc T4, Free Routine Type 1 diabetes mellitus with diabetic neuropathy (HCC) 1 Occurrences starting 11/11/2018 until 11/11/2019 [facility] Comment on above: 1 Occurrences starting 11/11/2018 until 11/11/2019 End: 02-18-2025 Thyrotropin [Units/volume] in Serum or Plasma TSH Lab Routine Type 1 diabetes mellitus with diabetic neuropathy (HCC) 1 Occurrences starting 02/18/2024 until 02/18/2025 [facility] Comment on above: 1 Occurrences starting 02/18/2024 until 02/18/2025 End: 07-22-2025 Thyrotropin [Units/volume] in Serum or Plasma TSH Lab Routine Type 1 diabetes mellitus with diabetic neuropathy (HCC) 1 Occurrences starting 07/21/2024 until 07/22/2025 [facility] Comment on above: 1 Occurrences starting 07/21/2024 until 07/22/2025 End: 11-14-2025 Thyrotropin [Units/volume] in Serum or Plasma TSH Lab Routine Type 1 diabetes mellitus with diabetic neuropathy (HCC) 1 Occurrences starting 11/13/2024 until 11/14/2025 [facility] Comment on above: 1 Occurrences starting 11/13/2024 until 11/14/2025 Thyrotropin [Units/volume] in Serum or Plasma TSH with Reflex Free T4 Lab Routine 02/12/2025 10:25 AM EDT [facility] Work Phone: End: 03-13-2026 Thyrotropin [Units/volume] in Serum or Plasma TSH Lab Routine Type 1 diabetes mellitus with diabetic neuropathy (HCC) 1 Occurrences starting 03/12/2025 until 03/13/2026 [facility] Comment on above: 1 Occurrences starting 03/12/2025 until 03/13/2026 End: 11-11-2019 Thyrotropin Qn TSH Routine Type 1 diabetes mellitus with diabetic neuropathy (HCC) 1 Occurrences starting 11/11/2018 until 11/11/2019 [facility] Comment on above: 1 Occurrences starting 11/11/2018 until 11/11/2019 End: 02-28-2019 Thyroxine (T4) free T4, Free Routine Type 1 diabetes mellitus with diabetic neuropathy (HCC) 1 Occurrences starting 02/28/2018 until 02/28/2019 [facility] End: 02-18-2025 Thyroxine (T4) free [Mass/volume] in Serum or Plasma T4, Free Lab Routine Type 1 diabetes mellitus with diabetic neuropathy (HCC) 1 Occurrences starting 02/18/2024 until 02/18/2025 [facility] Comment on above: 1 Occurrences starting 02/18/2024 until 02/18/2025 End: 07-22-2025 Thyroxine (T4) free [Mass/volume] in Serum or Plasma T4, Free Lab Routine Type 1 diabetes mellitus with diabetic neuropathy (HCC) 1 Occurrences starting 07/21/2024 until 07/22/2025 [facility] Comment on above: 1 Occurrences starting 07/21/2024 until 07/22/2025 End: 11-14-2025 Thyroxine (T4) free [Mass/volume] in Serum or Plasma T4, Free Lab Routine Type 1 diabetes mellitus with diabetic neuropathy (HCC) 1 Occurrences starting 11/13/2024 until 11/14/2025 [facility] Comment on above: 1 Occurrences starting 11/13/2024 until 11/14/2025 End: 03-13-2026 Thyroxine (T4) free [Mass/volume] in Serum or Plasma T4, Free Lab Routine Type 1 diabetes mellitus with diabetic neuropathy (HCC) 1 Occurrences starting 03/12/2025 until 03/13/2026 [facility] Comment on above: 1 Occurrences starting 03/12/2025 until 03/13/2026 Total cholesterol:HD L ratio measurement [facility] Total protein measurement [facility] Triglycerides measurement [facility] End: 02-28-2019 TSH TSH Routine Type 1 diabetes mellitus with diabetic neuropathy (HCC) 1 Occurrences starting 02/28/2018 until 02/28/2019 [facility] Urea nitrogen [Mass/volume] in Serum or Plasma [facility] Urine culture [facility] VLDL cholesterol measurement [facility] Immunizations Immunization Date Immunization Notes Care Provider Fa cility 07-03-2020 zoster vaccine recombinant Ayanna Albert DO Work Phone: [facility] Work Phone: 04-17-2020 zoster vaccine recombinant Ayanna Young DO Work Phone: [facility] Work Phone: 03-31-2019 pneumococcal polysaccharide vaccine, 23 valent Ayanna Albert DO Work Phone: [facility] Work Phone: 01-31-2018 pneumococcal conjuga te vaccine, 13 valent Ayanna Albert DO Work Phone: [facility] Work Phone: 11-10-2016 HEMOGLOBIN A1C Ya Parker [facility] Work Phone: Payers Date Payer Category Payer Self-pay [id number] 2021 Medicare (Managed Care) [employer] MEDICARE [id number] 2021 Medicare PPO [employer] MEDICARE P JAYDON (PPO) [id number] 2021 Private Health Insurance [id number] 2015 Medicare [id number] 2015 Medicare [id number] [id number]. [id number] 2015 Medicare [id number]. 1.13.385.2. [id number] 2015 Medicare [id number] 2.16.840.1.689229.3.249.13 1943 Unknown [id number] 2.16.840.1.749186.3.579.2. 1068 1943 Unknown [id number] 2.16.840.1.686474.3.579.2. 1068 1943 Unknown [id number] 2.16.840.1.079592.3.579.2. 1068 1943 Unknown [id number] 2.16.840.1.753622.3.579.2. 1068 1943 Unknown [id number] 2.16.840.1.276492.3.579.2. 1068 1943 Unknown [id number] 2.16.840.1.771636.3.579.2. 1068 1943 Unknown [id number] 2.16.840.1.972113.3.579.2. 1068 1943 Unknown [id number] 2.16.840.1.575169.3.579.2. 1068 1943 Unknown [id number] 2.16.840.1.328669.3.579.2. 1068 1943 Unknown [id number] 2.16.840.1.860965.3.579.2. 1068 1943 Unknown [id number] 2.16.840.1.359147.3.579.2. 1068 1943 Unknown [id number] 2.16.840.1.095684.3.579.2. 356 1943 Unknown [id number] 2.16.840.1.253615.3.579.2. 1244 1943 Unknown [id number] 2.16.840.1.444743.3.579.2. 1244 1943 Unknown [id number] 2.16.840.1.920388.3.579.2. 1245 1943 Unknown [id number] 2.16.840.1.597578.3.579.2. 1244 1943 Unknown [id number] 2.16.840.1.752649.3.579.2. 1244 1943 Unknown [id number] 2.16.840.1.040288.3.579.2. 90 1943 Unknown [id number] 2.16.840.1.067148.3.579.2. 90 1943 Unknown [id number] 2.16.840.1.482606.3.579.2. 1242 1943 Unknown [id number] 2.16.840.1.310785.3.579.2. 1943 Unknown [id number] 2.16.840.1.590905.3.579.2. 1943 Unknown [id number] 2.16.840.1.307077.3.579.2. 1943 Unknown [id number] 2.16.840.1.372491.3.579.2. 1943 Unknown [id number] 2.16.840.1.523753.3.579.2. 1943 Unknown [id number] 2.16.840.1.058879.3.579.2. 90 1943 Unknown [id number] 2.16.840.1.459885.3.579.2. 90 1943 Unknown [id number] 2.16.840.1.835480.3.579.2. 90 1943 Unknown [id number] 2.16.840.1.261335.3.579.2. 90 1943 Unknown [id number] 2.16.840.1.335706.3.579.2. 903 1943 Unknown [id number] 2.16.840.1.094826.3.579.2. 903 1943 Unknown [id number] 2.16.840.1.046905.3.579.2. 903 1943 Unknown [id number] 2.16.840.1.615974.3.579.2. 903 1943 Unknown [id number] 2.16.840.1.768259.3.579.2. 903 Unknown [employer] Unknown [id number] 2.16.840.1.811001.3.579.2. 462 Unknown [id number] 2.16.840.1.500898.3.579.2. 462 Unknown [id number] 2.16840.1.807951.3.579.2. 462 Unknown [id number] 2.16.840.1.986825.3.579.2. 462 Unknown [id number] 2.16.840.1.321093.3.579.2. 462 Unknown [id number] 2.16.840.1.789320.3.579.2. 462 Unknown [id number] 2.16.840.1.019098.3.579.2. 462 Unknown [id number] 2.16840.1.454973.3.579.2. 462 Unknown [id number] 2.16.840.1.261264.3.579.2. 462 Unknown [id number] 2.16.840.1.192492.3.579.2. 462 Unknown [id number] 2.16.840.1.533438.3.579.2. 462 Unknown [id number] 2.16.840.1.544713.3.579.2. 462 Unknown [id number] 2.16.840.1.952533.3.579.2. 462 Unknown [id number] 2.16.840.1.595988.3.579.2. 462 Unknown [id number] 2.16.840.1.628062.3.579.2. 462 Unknown [id number] 2.16.840.1.285115.3.579.2. 462 Unknown [id number] 2.16.840.1.094248.3.579.2. 462 Unknown [id number] 2.16.840.1.443324.3.579.2. 462 Unknown [id number] 2.16.840.1.319437.3.579.2. 462 Unknown [id number] 2.16.840.1.838892.3.579.2. 462 Unknown [id number] 2.16.840.1.747138.3.579.2. 462 Unknown [id number] 2.16.840.1.188436.3.579.2. 462 Unknown [id number] 2.16.840.1.845252.3.579.2. 462 Unknown [id number] 2.16.840.1.267681.3.579.2. 462 Unknown [id number] 2.16.840.1.014688.3.579.2. 462 Unknown [id number] 2.16.840.1.023760.3.579.2. 462 Social History Date Type Detail Facility Start: 11-01-1965 End: 11-09-2024 Tobacco smoking status NDIS Current every day smoker [facility] Work Phone: Start: 02-28-2018 End: 02-28-2025 Cigarettes smoked current (pack per day) - Reported [facility] Start: 1945 Sex Assigned At Not on file [facility] Work Phone: Start: 07-17-2019 End: 03-12-2025 Alcohol intake Current non-drinker of alcohol (finding) [facility] Start: 06-18-2020 End: 11-09-2024 Tobacco use and exposure Never used [facility] Start: 02-03-2022 End: 02-26-2025 Exposure to SARS-CoV-2 (event) Not sure [facility] Start: [birth year]-01-1965 History of tobacco use Cigarette Smoker [facility] Start: 10-19-2022 End: 02-28-2025 Tobacco use panel [facility] Start: 08-25-2023 End: 02-26-2025 Alcohol intake Lifetime non-drinker (finding) [facility] Work Phone: How hard is it for y ou to pay for the very basics like food, housing, medical care, and heating Not hard at all [facility] In the past 12 month s, was there a time when you were not able to pay the mortgage or rent on time? No [facility] Work Phone: Start: 1945 Sex Assigned At Male [facility] Start: 10-11-2023 Gender identity Identifies as male gender (finding) [facility] Work Phone: Start: 10-11-2023 Sexual orientation Heterosexual (finding) [facility] Work Phone: Start: 08-05-2021 Tobacco smoking status NHIS Unknown if ever smoked [facility] (I/We) worried sarah er (my/our) food would run out before (I/we) got money to buy more. Never true [facility] Start: 02-09-2025 Sex Male (finding) [facility] Medical Equipment Procedure Code Equipment Code Equipment Origin al Text Equipment Identifier Dates [id number] Start: 08-12-2015 End: 03-13-2019 USE DIRECTED FOUR TIMES A DAY FOR INSULIN INJECTION [id number] Start: 09-12-2018 E10.9 Use as directed 4 times per day. [id number] Start: 06-10-2017 use as directed 4 times per day for insulin injection. [id number] Start: 06-17-2017 use as directed 4 times per day for insulin injection. [id number] Start: 05-19-2016 End: 06-17-2017 Use as directed 4 times per day. Dx E10.9 Patient with type 1 DM on insulin with hypoglycemia. Needs to check BG QID; takes insulin QID . [id number] Start: 03-13-2019 Use as directed 4x daily DX code E10.65 . [id number] Start: 10-20-2019 Use as directed 4 times per day. Dx E10.9 Patient with type 1 DM on insulin with hypoglycemia. Needs to check BG QID; takes insulin QID . [id number] Start: 03-15-2020 End: 02-18-2021 Use as directed 4x daily DX code E10.65 . [id number] Start: 10-07-2020 End: 10-08-2021 Use as directed 4 times per day. Dx E10.9 Patient with type 1 DM on insulin with hypoglycemia. Needs to check BG QID; takes insulin QID . [id number] Start: 02-18-2021 End: 02-13-2022 Use as directed 4x daily DX code E10.65 . [id number] Start: 10-09-2021 End: 12-31-2022 Use as directed 4 times per day. Dx E10.9 Patient with type 1 DM on insulin with hypoglycemia. Needs to check BG QID; takes insulin QID . [id number] Start: 02-13-2022 End: 02-19-2023 Use as directed 4x daily DX code E10.65 . [id number] Start: 12-31-2022 Use as directed 4 times per day. Dx E10.9 Patient with type 1 DM on insulin with hypoglycemia. Needs to check BG QID; takes insulin QID . [id number] Start: 02-19-2023 End: 03-06-2024 BD Jolynn 2nd Gen Pen Needle 32 gauge x 5/32 needle [id number] Start: 07-01-2023 Use as directed 4 times per day. Dx E10.9 Patient with type 1 DM on insulin with hypoglycemia. Needs to check BG QID; takes insulin QID . [id number] Start: 02-19-2023 Use as directed 4x daily Dx code E10.65 . [id number] Start: 12-01-2023 End: 12-08-2024 TEST BLOOD GLUCO SE FOUR TIMES DAILY E10.65 . [id number] Start: 03-06-2024 End: 04-16-2025 Use as directed 4x daily Dx code E10.65 . [id number] Start: 12-08-2024 Blood Sugar Diagnostic (Contour Next Test Strips) strip Start: 09-12-2024 Blood Sugar Diagnostic (Contour Next Test Strips) strip Start: 09-12-2024 Blood Sugar Diagnostic (Contour Next Test Strips) strip Start: 09-12-2024 TEST BLOOD GLUCO SE FOUR TIMES DAILY E10.65 . [id number] Start: 04-17-2025 Goals Date Patient Goal Desired Activity /State Functional Status Date Assessment Result Facility 04-10-2025 Functional status Chair [facility] Work Phone: Mental Status Date Assessment Result Facility 04-10-2025 Cognitive function Voice/Name [facility] Work Phone: Clinical Notes 02-18-2021 to 04-10-2025 Note Date & Type Note Facility 04-10-2025 Discharge summary [facility] 04-10-2025 Note [facility] 04-10-2025 Progress note Note Date/Time April 10, 2025 12:27pm [facility] Medical Records Department [address] [place] [address] Progress Note - Nephrology 04/10/25 1226 MR#: [id number] Acct: [id number] Name: ENOC ARMANDO Rep #:[id number] : 1945 79 From: Denisha tirado MD PCP: Dr. Ryley Jeter MD Status:ADM IN Location: [place] [address] Subjective Subjective no new events Objective Data Objective Data Vital Signs: Vital Signs Temp Pulse Resp BP Pulse Ox O2 Del Method O2 Flow Rate 97.9 F 84 16 147/63 H 98 Room Air 2 04/10/25 08:45 04/10/25 09:57 04/10/25 08:45 04/10/25 08:45 04/10/25 09:38 04/10/25 08:45 04/10/25 09:38 FiO2 30 04/10/25 00:32 Oxygen Flow Rate (L/min) 2 Oxygen Delivery Method Room Air Weight: 64.7 kg Body Mass Index (BMI) 22.3 Intake & Output: Intake and Output for Last 24 Hours 04/08/25 04/09/25 04/10/25 23:59 23:59 23:59 Intake Total 905 / 905 150 / 150 100 / 100 Output Total 1260 / 1260 200 / 203 53 / 53 Balance -355 / -355 -50 / -53 47 / 47 Lab / Micro Data 04/10/25 05:35 04/10/25 05:35 Labs: Laboratory Results - last 24 hr 04/06/25 06:24: Glomerular Base Memb Ab < 0.2 04/06/25 14:48: c-ANCA Antibody <1:20, Atypical p-ANCA <1:20, p-ANCA Antibody <1:20 04/09/25 16:26: POC Glucose 217 H 04/09/25 21:12: POC Glucose 423 H 04/10/25 05:35: WBC 11.6 H, RBC 2.85 L, Hgb 8.6 L, Hct 26.0 L, MCV 91.2, MCH 30.2, MCHC 33.1, RDW Std Deviation 45.1 H, RDW Coeff of Humaira 13.6, Plt Count 193,MPV 12.4 H, Immature Gran % (Auto) 0.800, Neut % (Auto) 82.6 H, Lymph % (Auto) 9.4 L, Ada % (Auto) 7.0, Eos % (Auto) 0.1, Baso % (Auto) 0.1, Absolute Neuts (auto) 9.6 H, Absolute Lymphs (auto) 1.09, Nucleated RBC % 0, Sodium 137, Potassium 4.2, Chloride 101, Carbon Dioxide 22.6, Anion Gap 13, BUN 79 H, Creatinine 3.48 H, Estim Creat Clear Calc 15.24 L, Est GFR (MDRD) Non-Af 17 L, BUN/Creatinine Ratio 22.8 H, Glucose 287 H, Calcium 8.5 04/10/25 06:34: POC Glucose 274 H Micro: Microbiology 04/09/25 17:45 Stool Stool Occult Blood (MINE) - Final Occult Blood Positive 04/07/25 09:30 Sputum, Expectorated/Coughed Gram Stain - Final 04/07/25 09:30 Sputum, Expectorated/Coughed Respiratory Culture - Final Mixed normal respiratory kyler. No Streptococcus pneumoniae, beta-hemolytic Streptococcus or Staphylococcus aureus isolated. 04/03/25 02:25 Blood Culture (Wb) - Anticubital Left Blood Culture - Final No growth in 5 days. 04/03/25 03:50 Blood Culture (Wb) - Anticubital Left Blood Culture - Final No growth in 5 days. 04/03/25 05:51 Urine, Clean Catch Urine Culture - Final Culture exhibits no growth. 04/03/25 05:46 Wound - Elbow Skin and Soft Tissue MRSA/MSSA (PCR - Final 04/03/25 05:10 Mucosa - Nasopharyngeal Respiratory Panel (PCR) - Final 04/03/25 05:51 Urine, Clean Catch Legionella Antigen - Final 04/03/25 05:51 Urine Catheter - Catheter Streptococcus pneumoniae Antigen (M- Final 04/03/25 00:25 Mucosa - Nose SARS-CoV-2, Influenza & RSV (PCR) - Final Rhythm Strip Rhythm Strip: Sinus Rhythm Rate: 86 Physical Exam Narrative Alert and oriented x 3, no apparent distress S1, S2, RRR Diminished breath sounds. On O2 nasal cannula Abdomen soft, nontender, nondistended No edema No-ntunneled temporary right IJ hemodialysis catheter accessed for dialysis Assessment & Plan Assessment/Plan (1) MADONNA (acute kidney injury): (2) CKD (chronic kidney disease), stage III: QUALIFIERS: Chronic kidney disease stage 3 subtype: stage 3b (GFR 30-44) Qualified Code(s): N18.32 - Chronic kidney disease, stage 3b (3) Acute hypoxic respiratory failure: PLAN: Plan This is an 79-year-old male with past medical history significant for hypertension, CKD stage III (followed by Dr. Albert in [place]), COPD, diabetes mellitus admitted to the hospital for acute hypoxic respiratory failure, multifactorial from COPD and/or pneumonia and/or possible heart failure contributing. Nephrology consulted in view of elevated creatinine. Baseline creatinine is around 1.8 mg/dL range. Creatinine was 1.8 on admission received contrast on admit Renal US no hydronephrosis UA showed leukocyte esterase, RBC, 100 protein - presumably MADONNA due to contrast nephropathy vs ATN. due to lack of urine output and worsening renal failure he was started on hemodialysis on Wednesday. Received dialysis Wednesday and Wednesday. Symptomatically better with volume removal. He is now off BiPAP. Urine output has improved significantly cr about the same likely recovering ATN remove HD catheter once again he is asking to leave from my end can dc bladder scan x [address] Albert in 1-2 weeks dw family dw hospitalist 04/10/25 1227 <Electronically signed by Denisha Thompson MD> Cosigner Signature (if applicable): CC: ~ Signed [facility] Work Phone: 1(380) 454-844706-10-2025 Progress note [facility] Medical Records Department [address] [place] [address] Progress Note - Nephrology 04/10/25 1226 MR#: [id number] Acct: [id number] Name: ENOC ARMANDO Rep #:[id number] : 1945 79 From: Denisha tirado MD PCP: Dr. Ryley Jeter MD Status:ADM IN Location: [place] [address] Subjective Subjective no new events Objective Data Objective Data Vital Signs: Vital Signs Temp Pulse Resp BP Pulse Ox O2 Del Method O2 Flow Rate 97.9 F 84 16 147/63 H 98 Room Air 2 04/10/25 08:45 04/10/25 09:57 04/10/25 08:45 04/10/25 08:45 04/10/25 09:38 04/10/25 08:45 04/10/25 09:38 FiO2 30 04/10/25 00:32 Oxygen Flow Rate (L/min) 2 Oxygen Delivery Method Room Air Weight: 64.7 kg Body Mass Index (BMI) 22.3 Intake & Output: Intake and Output for Last 24 Hours 04/08/25 04/09/25 04/10/25 23:59 23:59 23:59 Intake Total 905 / 905 150 / 150 100 / 100 Output Total 1260 / 1260 200 / 203 53 / 53 Balance -355 / -355 -50 / -53 47 / 47 Lab / Micro Data 04/10/25 05:35 04/10/25 05:35 Labs: Laboratory Results - last 24 hr 04/06/25 06:24: Glomerular Base Memb Ab < 0.2 04/06/25 14:48: c-ANCA Antibody <1:20, Atypical p-ANCA <1:20, p-ANCA Antibody <1:20 04/09/25 16:26: POC Glucose 217 H 04/09/25 21:12: POC Glucose 423 H 04/10/25 05:35: WBC 11.6 H, RBC 2.85 L, Hgb 8.6 L, Hct 26.0 L, MCV 91.2, MCH 30.2, MCHC 33.1, RDW Std Deviation 45.1 H, RDW Coeff of Humaira 13.6, Plt Count 193,MPV 12.4 H, Immature Gran % (Auto) 0.800, Neut % (Auto) 82.6 H, Lymph % (Auto) 9.4 L, Ada % (Auto) 7.0, Eos % (Auto) 0.1, Baso % (Auto) 0.1, Absolute Neuts (auto) 9.6 H, Absolute Lymphs (auto) 1.09, Nucleated RBC % 0, Sodium 137, Potassium 4.2, Chloride 101, Carbon Dioxide 22.6, Anion Gap 13, BUN 79 H, Creatinine 3.48 H, Estim Creat Clear Calc 15.24 L, Est GFR (MDRD) Non-Af 17 L, BUN/Creatinine Ratio 22.8 H, Glucose 287 H, Calcium 8.5 04/10/25 06:34: POC Glucose 274 H Micro: Microbiology 04/09/25 17:45 Stool Stool Occult Blood (MINE) - Final Occult Blood Positive 04/07/25 09:30 Sputum, Expectorated/Coughed Gram Stain - Final 04/07/25 09:30 Sputum, Expectorated/Coughed Respiratory Culture - Final Mixed normal respiratory kyler. No Streptococcus pneumoniae, beta-hemolytic Streptococcus or Staphylococcus aureus isolated. 04/03/25 02:25 Blood Culture (Wb) - Anticubital Left Blood Culture - Final No growth in 5 days. 04/03/25 03:50 Blood Culture (Wb) - Anticubital Left Blood Culture - Final No growth in 5 days. 04/03/25 05:51 Urine, Clean Catch Urine Culture - Final Culture exhibits no growth. 04/03/25 05:46 Wound - Elbow Skin and Soft Tissue MRSA/MSSA (PCR - Final 04/03/25 05:10 Mucosa - Nasopharyngeal Respiratory Panel (PCR) - Final 04/03/25 05:51 Urine, Clean Catch Legionella Antigen - Final 04/03/25 05:51 Urine Catheter - Catheter Streptococcus pneumoniae Antigen (M- Final 04/03/25 00:25 Mucosa - Nose SARS-CoV-2, Influenza & RSV (PCR) - Final Rhythm Strip Rhythm Strip: Sinus Rhythm Rate: 86 Physical Exam Narrative Alert and oriented x 3, no apparent distress S1, S2, RRR Diminished breath sounds. On O2 nasal cannula Abdomen soft, nontender, nondistended No edema No-ntunneled temporary right IJ hemodialysis catheter accessed for dialysis Assessment & Plan Assessment/Plan (1) MADONNA (acute kidney injury): (2) CKD (chronic kidney disease), stage III: QUALIFIERS: Chronic kidney disease stage 3 subtype: stage 3b (GFR 30-44) Qualified Code(s): N18.32 - Chronic kidney disease, stage 3b (3) Acute hypoxic respiratory failure: PLAN: Plan This is an 79-year-old male with past medical history significant for hypertension, CKD stage III (followed by Dr. Albert in [place]), COPD, diabetes mellitus admitted to the hospital for acute hypoxic respiratory failure, multifactorial from COPD and/or pneumonia and/or possible heart failure contri buting. Nephrology consulted in view of elevated creatinine. Baseline creatinine is around 1.8 mg/dL range. Creatinine was 1.8 on admission received contrast on admit Renal US no hydronephrosis UA showed leukocyte esterase, RBC, 100 protein - presumably MADONNA due to contrast nephropathy vs ATN. due to lack of urine output and worsening renal failure he was started on hemodialysis on Wednesday. Received dialysis Wednesday and Wednesday. Symptomatically better with volume removal. He is now off BiPAP. Urine output has improved significantly cr about the same likely recovering ATN remove HD catheter once again he is asking to leave from my end can dc bladder scan x [address] Albert in 1-2 weeks dw family dw hospitalist 04/10/25 1227 Cosigner Signature (if applicable): CC: ~ Signed [facility]06-09-2025 Progress note Author Grace Arnold [facility] Note Date/Time April 09, 2025 6:52p m [facility] Medical Records Department [address] [place] [address] Progress Note 04/09/25 1501 MR#: [id number] Acct: [id number] Name: ENOC ARMANDO Rep #:[id number] : 1945 79 From: Grace Arnold MD PCP: Dr. Ryley Jeter MD Status:ADM IN Location: [place] [address] Subjective Subjective Patient seen and examined in the presence of his nurse. He had no complaints andhad an uneventful night. Review of systems is otherwise negative. He is requesting to go home if he is not having dialysis. However, the leaf coverer wants to monitor his labs overnight. He has remained hemodynamically stable. Objective Data Objective Data Vital Signs: Vital Signs Temp Pulse Resp BP Pulse Ox O2 Del Method O2 Flow Rate 98.4 F 70 16 137/63 H 94 Nasal Cannula 2 04/09/25 08:15 04/09/25 13:41 04/09/25 13:19 04/09/25 08:15 04/09/25 08:15 04/09/25 14:06 04/09/25 14:06 FiO2 94 04/09/25 07:48 Oxygen Flow Rate (L/min) 2 Oxygen Delivery Method Nasal Cannula Weight: 143 lb 1.28 oz Body Mass Index (BMI) 22.4 Intake & Output: Intake and Output for Last 24 Hours 04/07/25 04/08/25 04/09/25 23:59 23:59 23:59 Intake Total 795 / 895 905 / 905 100 / 100 Output Total 3690 / 4140 1260 / 1260 200 / 200 Balance -2895 / -3245 -355 / -355 -100 / -100 Lab / Micro Data 04/09/25 07:05 04/09/25 07:05 Labs: Laboratory Results - last 24 hr 04/08/25 07:43: Crossmatch See Detail 04/08/25 16:40: POC Glucose 415 H 04/08/25 21:27: POC Glucose 475 H* 04/08/25 21:49: Glucose 528 H* 04/08/25 22:51: POC Glucose 443 H 04/09/25 00:45: POC Glucose 312 H 04/09/25 06:20: POC Glucose 141 H 04/09/25 07:05: WBC 13.0 H, RBC 2.88 L, Hgb 8.7 L, Hct 25.5 L, MCV 88.5, MCH 30.2, MCHC 34.1 D, RDW Std Deviation 45.6 H, RDW Coeff of Humaira 14.0, Plt Count 191, MPV 12.0, Immature Gran % (Auto) 0.700, Neut % (Auto) 77.6 H, Lymph % (Auto) 14.1 L, Ada % (Auto) 7.4, Eos % (Auto) 0.1, Baso % (Auto) 0.1, Absolute Neuts (auto) 10.1 H, Absolute Lymphs (auto) 1.84, Nucleated RBC % 0, Sodium 140,Potassium 3.4, Chloride 104, Carbon Dioxide 21.6, Anion Gap 15, BUN 74 H, Creatinine 3.42 H, Estim Creat Clear Calc 15.55 L, Est GFR (MDRD) Non-Af 17 L, BUN/Creatinine Ratio 21.8 H, Glucose 146 H, Calcium 8.5 04/09/25 11:12: POC Glucose 146 H Micro: Microbiology 04/07/25 09:30 Sputum, Expectorated/Coughed Gram Stain - Final 04/07/25 09:30 Sputum, Expectorated/Coughed Respiratory Culture - Final Mixed normal respiratory kyler. No Streptococcus pneumoniae, beta-hemolytic Streptococcus or Staphylococcus aureus isolated. 04/03/25 02:25 Blood Culture (Wb) - Anticubital Left Blood Culture - Final No growth in 5 days. 04/03/25 03:50 Blood Culture (Wb) - Anticubital Left Blood Culture - Final No growth in 5 days. 04/03/25 05:51 Urine, Clean Catch Urine Culture - Final Culture exhibits no growth. 04/03/25 05:46 Wound - Elbow Skin and Soft Tissue MRSA/MSSA (PCR - Final 04/03/25 05:10 Mucosa - Nasopharyngeal Respiratory Panel (PCR) - Final 04/03/25 05:51 Urine, Clean Catch Legionella Antigen - Final 04/03/25 05:51 Urine Catheter - Catheter Streptococcus pneumoniae Antigen (M- Final 04/03/25 00:25 Mucosa - Nose SARS-CoV-2, Influenza & RSV (PCR) - Final Rhythm Strip Rhythm Strip: Sinus Rhythm Rate: 86 Physical Exam Const alert, oriented x3 and no apparent distress General Appearance: cooperative HEENT normocephalic, head/scalp atraumatic, moist oral mucous membranes, oropharynx normal and gingiva normal Eyes PERRL and EOMs intact bilaterally Neck supple and no JVD General: trachea midline Lymph Lymphatic: no lymphedema noted Resp Resp Narrative: mildly diminished breath sounds bibasally, no wheezes or crackles. On 2 L of oxygen by nasal cannula. Cardio regular rate, regular rhythm, S1 normal heart sound, S2 normal heart sound and no murmurs GI normal to inspection, nondistended, normoactive bowel sounds, soft to palpation,non-tender and non-distended Extremity normal capillary refill, no clubbing, cyanosis or edema and no calf tenderness General Extremity: no tenderness to palpation of joints or extremities Skin General Skin Exam: no breakdown Neuro no focal motor deficits Neuro Narrative: alert, communicative, moves all limbs spontaneously Motor Exam: general weakness Psych thought process normal, cooperative and affect normal Appearance: appropriate Assessment & Plan Assessment/Plan (1) Non-STEMI (non-ST elevated myocardial infarction): (2) MADONNA (acute kidney injury): PLAN: Plan #Acute on chronic hypoxic respiratory failure due to acute on chronic COPD exacerbation and probable heart failure as well as superimposed pneumonia * Now on 2 L of oxygen. 2D echo showed EF of 40% with left ventricular hypokinesis and stage I diastolic dysfunction RVSP of 41 mmHg. * Cardiology was consulted and records requested from [facility] showed he had cardiac cath at [facility] 2 years ago and had 2 blockages which were not amenable to treatment. * His troponins were slightly elevated. Conservative management as per cardiology. #MADONNA on CKD stage III now dialysis dependent * Patient has been initiated on dialysis via a tunneled dialysis catheter during this admission. Lasix and lisinopril as well as potassium held. Nephrology on board. * Patient said if he did not have dialysis today he wanted to be discharged home. Nephrology is wanting to monitor his kidney function overnight and will decide in the morning about discharging based on what the kidney function is. * Creatinine today is 3.42, up from 2.97 yesterday. #Acute on chronic anemia: * Hemoglobin went down to 6.9 during the admission so he was transfused a unit of packed red blood cells. * Hemoglobin today is 8.7. * Stool for occult blood ordered and is pending. * Iron profile showed iron saturation of 10% with iron level low at 27 and ferritin also low normal at 69. He therefore does have some level of iron deficiency anemia. Will benefit from follow-up with gastroenterology on outpatient basis * #Leukocytosis: Resolved #Type 2 diabetes mellitus: * On Lantus. Insulin sliding scale. Accu-Cheks ACHS. * Has had hypoglycemia during this admission. Will monitor closely. #Hyperlipidemia: On ezetimibe Nicotine dependence: Counseled to quit. Nicotine patch 21mg daily DVT prophylaxis: heparin Charges/Coding Visit Charges Inpatient E&M: 44755 Subs Hosp L2 04/09/25 1852 <Electronically signed by Grace Arnold MD> Grace Arnold MD Cosigner Signature (if applicable): CC: ~ Signed [facility] Work Phone: [phone]) 765-851506-09-2025 Progress note [facility] Medical Records Department [address] [place] [address] Progress Note 04/09/25 1501 MR#: [id number] Acct: [id number] Name: ENOC ARMANDO Rep #:[id number] : 1945 79 From: Grace Arnold MD PCP: Dr. Ryley Jeter MD Status:ADM IN Location: [place] [address] Subjective Subjective Patient seen and examined in the presence of his nurse. He had no complaints andhad an uneventful night. Review of systems is otherwise negative. He is requesting to go home if he is not having dialysis. However, the leaf coverer wants to monitor his labs overnight. He has remained hemodynamically stable. Objective Data Objective Data Vital Signs: Vital Signs Temp Pulse Resp BP Pulse Ox O2 Del Method O2 Flow Rate 98.4 F 70 16 137/63 H 94 Nasal Cannula 2 04/09/25 08:15 04/09/25 13:41 04/09/25 13:19 04/09/25 08:15 04/09/25 08:15 04/09/25 14:06 04/09/25 14:06 FiO2 94 04/09/25 07:48 Oxygen Flow Rate (L/min) 2 Oxygen Delivery Method Nasal Cannula Weight: 143 lb 1.28 oz Body Mass Index (BMI) 22.4 Intake & Output: Intake and Output for Last 24 Hours 04/07/25 04/08/25 04/09/25 23:59 23:59 23:59 Intake Total 795 / 895 905 / 905 100 / 100 Output Total 3690 / 4140 1260 / 1260 200 / 200 Balance -2895 / -3245 -355 / -355 -100 / -100 Lab / Micro Data 04/09/25 07:05 04/09/25 07:05 Labs: Laboratory Results - last 24 hr 04/08/25 07:43: Crossmatch See Detail 04/08/25 16:40: POC Glucose 415 H 04/08/25 21:27: POC Glucose 475 H* 04/08/25 21:49: Glucose 528 H* 04/08/25 22:51: POC Glucose 443 H 04/09/25 00:45: POC Glucose 312 H 04/09/25 06:20: POC Glucose 141 H 04/09/25 07:05: WBC 13.0 H, RBC 2.88 L, Hgb 8.7 L, Hct 25.5 L, MCV 88.5, MCH 30.2, MCHC 34.1 D, RDWStd Deviation 45.6 H, RDW Coeff of Humaira 14.0, Plt Count 191, MPV 12.0, Immature Gran % (Auto) 0.700,Neut % (Auto) 77.6 H, Lymph % (Auto) 14.1 L, Ada % (Auto) 7.4, Eos % (Auto) 0.1, Baso % (Auto) 0.1, Absolute Neuts (auto) 10.1 H, Absolute Lymphs (auto) 1.84, Nucleated RBC % 0, Sodium 140,Potassium3.4, Chloride 104, Carbon Dioxide 21.6, Anion Gap 15, BUN 74 H, Creatinine 3.42 H, Estim Creat Clear Calc 15.55 L, Est GFR (MDRD) Non-Af 17 L, BUN/Creatinine Ratio 21.8 H, Glucose 146 H, Calcium 8.5 04/09/25 11:12: POC Glucose 146 H Micro: Microbiology 04/07/25 09:30 Sputum, Expectorated/Coughed Gram Stain - Final 04/07/25 09:30 Sputum, Expectorated/Coughed Respiratory Culture - Final Mixed normal respiratory kyler. No Streptococcus pneumoniae, beta-hemolytic Streptococcus or Staphylococcus aureus isolated. 04/03/25 02:25 Blood Culture (Wb) - Anticubital Left Blood Culture - Final No growth in 5 days. 04/03/25 03:50 Blood Culture (Wb) - Anticubital Left Blood Culture - Final No growth in 5 days. 04/03/25 05:51 Urine, Clean Catch Urine Culture - Final Culture exhibits no growth. 04/03/25 05:46 Wound - Elbow Skin and Soft Tissue MRSA/MSSA (PCR - Final 04/03/25 05:10 Mucosa - Nasopharyngeal Respiratory Panel (PCR) - Final 04/03/25 05:51 Urine, Clean Catch Legionella Antigen - Final 04/03/25 05:51 Urine Catheter - Catheter Streptococcus pneumoniae Antigen (M- Final 04/03/25 00:25 Mucosa - Nose SARS-CoV-2, Influenza & RSV (PCR) - Final Rhythm Strip Rhythm Strip: Sinus Rhythm Rate: 86 Physical Exam Const alert, oriented x3 and no apparent distress General Appearance: cooperative HEENT normocephalic, head/scalp atraumatic, moist oral mucous membranes, oropharynx normal and gingiva normal Eyes PERRL and EOMs intact bilaterally Neck supple and no JVD General: trachea midline Lymph Lymphatic: no lymphedema noted Resp Resp Narrative: mildly diminished breath sounds bibasally, no wheezes or crackles. On 2 L of oxygen by nasal cannula. Cardio regular rate, regular rhythm, S1 normal heart sound, S2 normal heart sound and no murmurs GI normal to inspection, nondistended, normoactive bowel sounds, soft to palpation,non-tender and non-distended Extremity normal capillary refill, no clubbing, cyanosis or edema and no calf tenderness General Extremity: no tenderness to palpation of joints or extremities Skin General Skin Exam: no breakdown Neuro no focal motor deficits Neuro Narrative: alert, communicative, moves all limbs spontaneously Motor Exam: general weakness Psych thought process normal, cooperative and affect normal Appearance: appropriate Assessment & Plan Assessment/Plan (1) Non-STEMI (non-ST elevated myocardial infarction): (2) MADONNA (acute kidney injury): PLAN: Plan #Acute on chronic hypoxic respiratory failure due to acute on chronic COPD exacerbation and probable heart failure as well as superimposed pneumonia * Now on 2 L of oxygen. 2D echo showed EF of 40% with left ventricular hypokinesis and stage I diastolic dysfunction RVSP of 41 mmHg. * Cardiology was consulted and records requested from [facility] showed he had cardiac cath at [facility] 2 years ago and had 2 blockages which were not amenable to treatment. * His troponins were slightly elevated. Conservative management as per cardiology. #MADONNA on CKD stage III now dialysis dependent * Patient has been initiated on dialysis via a tunneled dialysis catheter during this admission. Lasix and lisinopril as well as potassium held. Nephrology on board. * Patient said if he did not have dialysis today he wanted to be discharged home. Nephrology is wanting to monitor his kidney function overnight and will decide in the morning about discharging basedon what the kidney function is. * Creatinine today is 3.42, up from 2.97 yesterday. #Acute on chronic anemia: * Hemoglobin went down to 6.9 during the admission so he was transfused a unit of packed red blood cells. * Hemoglobin today is 8.7. * Stool for occult blood ordered and is pending. * Iron profile showed iron saturation of 10% with iron level low at 27 and ferritin also low normalat 69. He therefore does have some level of iron deficiency anemia. Will benefit from follow-up with gastroenterology on outpatient basis * #Leukocytosis: Resolved #Type 2 diabetes mellitus: * On Lantus. Insulin sliding scale. Accu-Cheks ACHS. * Has had hypoglycemia during this admission. Will monitor closely. #Hyperlipidemia: On ezetimibe Nicotine dependence: Counseled to quit. Nicotine patch 21mg daily DVT prophylaxis: heparin Charges/Coding Visit Charges Inpatient E&M: 10911 Subs Hosp L2 04/09/25 1852 Grace Arnold MD Cosigner Signature (if applicable): CC: ~ Signed [facility]06-09-2025 Progress note Author Denisha Thompson [facility] Note Date/Time April 09, 2025 10:39 am [facility] Medical Records Department [address] [place] [address] Progress Note - Nephrology 04/09/25 1037 MR#: [id number] Acct: [id number] Name: ENOC ARMANDO Rep #:[id number] : 1945 79 From: Denisha tirado MD PCP: Dr. Ryley Jeter MD Status:ADM IN Location: [place] [address] Subjective Subjective No new complaints today. Urine output has improved significantly, 1200 cc within the last 24 hours. Osborne catheter removed this morning. Objective Data Objective Data Vital Signs: Vital Signs Temp Pulse Resp BP Pulse Ox O2 Del Method O2 Flow Rate 98.4 F 81 19 H 137/63 H 94 Nasal Cannula 2 04/09/25 08:15 04/09/25 09:15 04/09/25 08:15 04/09/25 08:15 04/09/25 08:15 04/09/25 08:15 04/09/25 08:15 FiO2 94 04/09/25 07:48 Oxygen Flow Rate (L/min) 2 Oxygen Delivery Method Nasal Cannula Weight: 64.9 kg Body Mass Index (BMI) 22.4 Intake & Output: Intake and Output for Last 24 Hours 04/07/25 04/08/25 04/09/25 23:59 23:59 23:59 Intake Total 795 / 895 905 / 905 100 / 100 Output Total 3690 / 4140 1260 / 1260 200 / 200 Balance -2895 / -3245 -355 / -355 -100 / -100 Lab / Micro Data 04/09/25 07:05 04/09/25 07:05 Labs: Laboratory Results - last 24 hr 04/08/25 07:43: Blood Type A POSITIVE, Antibody Screen NEGATIVE, Crossmatch See Detail 04/08/25 11:31: POC Glucose 420 H 04/08/25 16:40: POC Glucose 415 H 04/08/25 21:27: POC Glucose 475 H* 04/08/25 21:49: Glucose 528 H* 04/08/25 22:51: POC Glucose 443 H 04/09/25 00:45: POC Glucose 312 H 04/09/25 06:20: POC Glucose 141 H 04/09/25 07:05: WBC 13.0 H, RBC 2.88 L, Hgb 8.7 L, Hct 25.5 L, MCV 88.5, MCH 30.2, MCHC 34.1 D, RDW Std Deviation 45.6 H, RDW Coeff of Humaira 14.0, Plt Count 191, MPV 12.0, Immature Gran % (Auto) 0.700, Neut % (Auto) 77.6 H, Lymph % (Auto) 14.1 L, Ada % (Auto) 7.4, Eos % (Auto) 0.1, Baso % (Auto) 0.1, Absolute Neuts (auto) 10.1 H, Absolute Lymphs (auto) 1.84, Nucleated RBC % 0, Sodium 140,Potassium 3.4, Chloride 104, Carbon Dioxide 21.6, Anion Gap 15, BUN 74 H, Creatinine 3.42 H, Estim Creat Clear Calc 15.55 L, Est GFR (MDRD) Non-Af 17 L, BUN/Creatinine Ratio 21.8 H, Glucose 146 H, Calcium 8.5 Micro: Microbiology 04/07/25 09:30 Sputum, Expectorated/Coughed Respiratory Culture - Final Mixed normal respiratory kyler. No Streptococcus pneumoniae, beta-hemolytic Streptococcus or Staphylococcus aureus isolated. 04/03/25 02:25 Blood Culture (Wb) - Anticubital Left Blood Culture - Final No growth in 5 days. 04/03/25 03:50 Blood Culture (Wb) - Anticubital Left Blood Culture - Final No growth in 5 days. 04/03/25 05:51 Urine, Clean Catch Urine Culture - Final Culture exhibits no growth. 04/03/25 05:46 Wound - Elbow Skin and Soft Tissue MRSA/MSSA (PCR - Final 04/03/25 05:10 Mucosa - Nasopharyngeal Respiratory Panel (PCR) - Final 04/03/25 05:51 Urine, Clean Catch Legionella Antigen - Final 04/03/25 05:51 Urine Catheter - Catheter Streptococcus pneumoniae Antigen (M- Final 04/03/25 00:25 Mucosa - Nose SARS-CoV-2, Influenza & RSV (PCR) - Final Rhythm Strip Rhythm Strip: Sinus Rhythm Rate: 86 Physical Exam Narrative Alert and oriented x 3, no apparent distress S1, S2, RRR Diminished breath sounds. On O2 nasal cannula Abdomen soft, nontender, nondistended No edema No-ntunneled temporary right IJ hemodialysis catheter accessed for dialysis Assessment & Plan Assessment/Plan (1) MADONNA (acute kidney injury): (2) CKD (chronic kidney disease), stage III: QUALIFIERS: Chronic kidney disease stage 3 subtype: stage 3b (GFR 30-44) Qualified Code(s): N18.32 - Chronic kidney disease, stage 3b (3) Acute hypoxic respiratory failure: PLAN: Plan This is an 79-year-old male with past medical history significant for hypertension, CKD stage III (followed by Dr. Albert in [place]), COPD, diabetes mellitus admitted to the hospital for acute hypoxic respiratory failure, multifactorial from COPD and/or pneumonia and/or possible heart failure contributing. Nephrology consulted in view of elevated creatinine. Baseline creatinine is around 1.8 mg/dL range. Creatinine was 1.8 on admission received contrast on admit Renal US no hydronephrosis UA showed leukocyte esterase, RBC, 100 protein - presumably MADONNA due to contrast nephropathy vs ATN. due to lack of urine output and worsening renal failure he was started on hemodialysis on Wednesday. Received dialysis Wednesday and Wednesday. Symptomatically better with volume removal. He is now off BiPAP. Urine output has improved significantly, 1200 ccin the last 24 hours. Creatinine went up by 0.4. Hold off on renal replacementtherapy since he may be recovering. Electrolytes are acceptable. Will reassess tomorrow with labs. If creatinine is better, can remove temporarydialysis catheter End of my interview, he was asking to leave. Explained that his renal failure is not completely resolved yet, might need monitoring for another day or 2. He is adamant about leaving today. Will notify hospitalist. 04/09/25 1039 <Electronically signed by Denisha Thompson MD> Cosigner Signature (if applicable): CC: ~ Signed [facility] Work Phone: [phone]) 309-483706-09-2025 Progress note [facility] Medical Records Department [address] [place] [address] Progress Note - Nephrology 04/09/25 1037 MR#: [id number] Acct: [id number] Name: ENOC ARMANDO Rep #:[id number] : 1945 79 From: Denisha tirado MD PCP: Dr. Ryley Jeter MD Status:ADM IN Location: [place] [address] Subjective Subjective No new complaints today. Urine output has improved significantly, 1200 cc within the last 24 hours.Osborne catheter removed this morning. Objective Data Objective Data Vital Signs: Vital Signs Temp Pulse Resp BP Pulse Ox O2 Del Method O2 Flow Rate 98.4 F 81 19 H 137/63 H 94 Nasal Cannula 2 04/09/25 08:15 04/09/25 09:15 04/09/25 08:15 04/09/25 08:15 04/09/25 08:15 04/09/25 08:15 04/09/25 08:15 FiO2 94 04/09/25 07:48 Oxygen Flow Rate (L/min) 2 Oxygen Delivery Method Nasal Cannula Weight: 64.9 kg Body Mass Index (BMI) 22.4 Intake & Output: Intake and Output for Last 24 Hours 04/07/25 04/08/25 04/09/25 23:59 23:59 23:59 Intake Total 795 / 895 905 / 905 100 / 100 Output Total 3690 / 4140 1260 / 1260 200 / 200 Balance -2895 / -3245 -355 / -355 -100 / -100 Lab / Micro Data 04/09/25 07:05 04/09/25 07:05 Labs: Laboratory Results - last 24 hr 04/08/25 07:43: Blood Type A POSITIVE, Antibody Screen NEGATIVE, Crossmatch See Detail 04/08/25 11:31: POC Glucose 420 H 04/08/25 16:40: POC Glucose 415 H 04/08/25 21:27: POC Glucose 475 H* 04/08/25 21:49: Glucose 528 H* 04/08/25 22:51: POC Glucose 443 H 04/09/25 00:45: POC Glucose 312 H 04/09/25 06:20: POC Glucose 141 H 04/09/25 07:05: WBC 13.0 H, RBC 2.88 L, Hgb 8.7 L, Hct 25.5 L, MCV 88.5, MCH 30.2, MCHC 34.1 D, RDWStd Deviation 45.6 H, RDW Coeff of Humaira 14.0, Plt Count 191, MPV 12.0, Immature Gran % (Auto) 0.700,Neut % (Auto) 77.6 H, Lymph % (Auto) 14.1 L, Ada % (Auto) 7.4, Eos % (Auto) 0.1, Baso % (Auto) 0.1, Absolute Neuts (auto) 10.1 H, Absolute Lymphs (auto) 1.84, Nucleated RBC % 0, Sodium 140,Potassium3.4, Chloride 104, Carbon Dioxide 21.6, Anion Gap 15, BUN 74 H, Creatinine 3.42 H, Estim Creat Clear Calc 15.55 L, Est GFR (MDRD) Non-Af 17 L, BUN/Creatinine Ratio 21.8 H, Glucose 146 H, Calcium 8.5 Micro: Microbiology 04/07/25 09:30 Sputum, Expectorated/Coughed Respiratory Culture - Final Mixed normal respiratory kyler. No Streptococcus pneumoniae, beta-hemolytic Streptococcus or Staphylococcus aureus isolated. 04/03/25 02:25 Blood Culture (Wb) - Anticubital Left Blood Culture - Final No growth in 5 days. 04/03/25 03:50 Blood Culture (Wb) - Anticubital Left Blood Culture - Final No growth in 5 days. 04/03/25 05:51 Urine, Clean Catch Urine Culture - Final Culture exhibits no growth. 04/03/25 05:46 Wound - Elbow Skin and Soft Tissue MRSA/MSSA (PCR - Final 04/03/25 05:10 Mucosa - Nasopharyngeal Respiratory Panel (PCR) - Final 04/03/25 05:51 Urine, Clean Catch Legionella Antigen - Final 04/03/25 05:51 Urine Catheter - Catheter Streptococcus pneumoniae Antigen (M- Final 04/03/25 00:25 Mucosa - Nose SARS-CoV-2, Influenza & RSV (PCR) - Final Rhythm Strip Rhythm Strip: Sinus Rhythm Rate: 86 Physical Exam Narrative Alert and oriented x 3, no apparent distress S1, S2, RRR Diminished breath sounds. On O2 nasal cannula Abdomen soft, nontender, nondistended No edema No-ntunneled temporary right IJ hemodialysis catheter accessed for dialysis Assessment & Plan Assessment/Plan (1) MADONNA (acute kidney injury): (2) CKD (chronic kidney disease), stage III: QUALIFIERS: Chronic kidney disease stage 3 subtype: stage 3b (GFR 30-44) Qualified Code(s): N18.32 - Chronic kidney disease, stage 3b (3) Acute hypoxic respiratory failure: PLAN: Plan This is an 79-year-old male with past medical history significant for hypertension, CKD stage III (followed by Dr. Albert in [place]), COPD, diabetes mellitus admitted to the hospital for acute hypoxic respiratory failure, multifactorial from COPD and/or pneumonia and/or possible heart failure contri buting. Nephrology consulted in view of elevated creatinine. Baseline creatinine is around 1.8 mg/dL range. Creatinine was 1.8 on admission received contrast on admit Renal US no hydronephrosis UA showed leukocyte esterase, RBC, 100 protein - presumably MADONNA due to contrast nephropathy vs ATN. due to lack of urine output and worsening renal failure he was started on hemodialysis on Wednesday. Received dialysis Wednesday and Wednesday. Symptomatically better with volume removal. He is now off BiPAP. Urine output has improved significantly, 1200 ccin the last 24 hours. Creatinine went up by 0.4. Hold off on renal replacementtherapy since he may be recovering. Electrolytes are acceptable. Will reassess tomorrow with labs. If creatinine is better, can remove temporarydialysis catheter End of my interview, he was asking to leave. Explained that his renal failure is not completely resolved yet, might need monitoring for another day or 2. He is adamant about leaving today. Will notify hospitalist. 04/09/25 1039 Cosigner Signature (if applicable): CC: ~ Signed [facility]06-09-2025 Progress note Author [facility] Jaiden [facility] Note Date/Time April 08, 2025 10:57 pm [facility] Medical Records Department [address] [place] [address] Progress Note - Hospitalist 04/08/252256 MR#: [id number] Acct: [id number] Name: ARMANDO,ENOC E Rep #:[id number] : 1945 79 From: Dyana Hwang MD PCP: Dr. Ryley Jeter MD Status:ADM IN Location: [place] [address] Hospitalist Note BS elevated, given ISS, repeat check remains elevated, will give an additional 15 u now and recheck 1-2 hours. 04/08/252256 <Electronically signed by Dyana Hwang MD> Cosigner Signature (if applicable): CC: ~ Signed [facility] Work Phone: 1(282) [phone] Progress note [facility] Medical Records Department [address] [place] [address] Progress Note - Hospitalist 04/08/252256 MR#: [id number] Acct: [id number] Name: ENOC ARMANDO Rep #:[id number] : 1945 79 From: Dyana Hwang MD PCP: Dr. Ryley Jeter MD Status:ADM IN Location: [place] [address] Hospitalist Note BS elevated, given ISS, repeat check remains elevated, will give an additional 15 u now and recheck1-2 hours. 04/08/252256 Cosigner Signature (if applicable): CC: ~ Signed [facility]06-08-2025 Progress note Author Jose Moore [facility] Note Date/Time April 08, 2025 10:37 am [facility] Medical Records Department [address] [place] [address] Progress Note - Hospitalist 04/08/25 1026 MR#: [id number] Acct: [id number] Name: ENOC ARMANDO Rep #:[id number] : 1945 79 From: Jose lui MD PCP: Dr. Ryley Jeter MD Status:ADM IN Location: [place] [address] Subjective Subjective Feels better today than he did yesterday, he is trying to frustrated with being here, his creatinine was better down the 2.97. Unfortunately his hemoglobin is 6.9, he is getting a unit of blood today and we are still awaiting stool sample Objective Data Objective Data Vital Signs: Vital Signs Temp Pulse Resp BP Pulse Ox O2 Del Method O2 Flow Rate 97.4 F L 83 15 143/61 H 97 Nasal Cannula 2 04/08/25 08:33 04/08/25 08:34 04/08/25 08:33 04/08/25 08:34 04/08/25 08:33 04/08/25 08:33 04/08/25 08:33 FiO2 30 04/08/25 06:30 Oxygen Flow Rate (L/min) 2 Oxygen Delivery Method Nasal Cannula Weight: 144 lb 9.972 oz Body Mass Index (BMI) 22.6 Intake & Output: Intake and Output for Last 24 Hours 04/07/25 04/08/25 04/09/25 03:59 03:59 03:59 Intake Total 2205 / 2205 895 / 895 100 / 100 Output Total 2150 / 2150 3840 / 3840 200 / 200 Balance 55 / 55 -2945 / -2945 -100 / -100 Lab / Micro Data 04/08/25 03:42 04/08/25 03:42 Labs: Laboratory Results - last 24 hr 04/07/25 06:25: Iron 27 L, TIBC 270, Iron Saturation 10.0, Unsaturated IBC 243, Ferritin 69 04/07/25 06:46: POC Glucose 392 H 04/07/25 13:13: POC Glucose 330 H 04/07/25 16:21: POC Glucose 333 H 04/07/25 21:14: POC Glucose 402 H 04/08/25 03:42: WBC 8.6, RBC 2.34 L, Hgb 6.9 L, Hct 21.5 L, MCV 91.9, MCH 29.5, MCHC 32.1, RDW Std Deviation 44.2 H, RDW Coeff of Humaira 13.5, Plt Count 176, MPV 12.5 H, Immature Gran % (Auto) 0.500, Neut % (Auto) 88.0 H, Lymph % (Auto) 7.3 L, Ada % (Auto) 4.2, Eos % (Auto) 0.0, Baso % (Auto) 0.0, Absolute Neuts (auto) 7.6, Absolute Lymphs (auto) 0.63 L, Nucleated RBC % 0, Sodium 136, Potassium 4.3, Chloride 100, Carbon Dioxide 20.3 L, Anion Gap 16 H, BUN 62 H, Creatinine 2.97 H, Estim Creat Clear Calc 16.83 L, Est GFR (MDRD) Non-Af 20 L, BUN/Creatinine Ratio 20.8 H, Glucose 395 H, Calcium 8.5 04/08/25 06:18: POC Glucose 361 H 04/08/25 07:43: Blood Type A POSITIVE, Antibody Screen NEGATIVE, Crossmatch See Detail Micro: Microbiology 04/03/25 02:25 Blood Culture (Wb) - Anticubital Left Blood Culture - Final No growth in 5 days. 04/03/25 03:50 Blood Culture (Wb) - Anticubital Left Blood Culture - Final No growth in 5 days. 04/03/25 05:51 Urine, Clean Catch Urine Culture - Final Culture exhibits no growth. 04/03/25 05:46 Wound - Elbow Skin and Soft Tissue MRSA/MSSA (PCR - Final 04/03/25 05:10 Mucosa - Nasopharyngeal Respiratory Panel (PCR) - Final 04/03/25 05:51 Urine, Clean Catch Legionella Antigen - Final 04/03/25 05:51 Urine Catheter - Catheter Streptococcus pneumoniae Antigen (M- Final 04/03/25 00:25 Mucosa - Nose SARS-CoV-2, Influenza & RSV (PCR) - Final Rhythm Strip Rhythm Strip: Sinus Rhythm Rate: 86 Physical Exam Narrative General: Alert, Oriented x3, Cooperative, No apparent distress HEENT: Atraumatic, PERRLA, EOMI, Normocephalic Oral: Moist Mucosa Neck: Supple, No JVD, right temporary dialysis catheter Lungs: Diminished, Normal air movement, No rhonchi, No wheeze, No rales Cardiovascular: Regular rate, Regular Rhythm, Normal S1, Normal S2, No murmurs Abdomen: Soft, Non Tender, Non-Distended, No Hepato-splenomegaly Extremities: No edema, Capillary Refill Less than 3 Seconds Skin: Lower extremities are wrapped Musculoskeletal: No Tenderness to Palpation of Joints or Extremities Neurological: No focal neurological deficits, moves all extremities Psych/Mental Status: Normal Affect, Appropriate Assessment & Plan Assessment/Plan (1) Acute hypoxic respiratory failure: PLAN: Plan 1. 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 Maintaining his oxygen saturations today on 2 L nasal cannula ? She has completed azithromycin, will continue with Rocephin for another 2 days, his white count has normalized ? Sputum culture is pending otherwise urine culture blood cultures so far negative ? Echocardiogram with an EF of 40% and stage I diastolic dysfunction with RVSP of 41 mmHg ? Continue with dialysis ? He had a heart cath 2 years ago at [facility] with 2 blockages that could not be revascularized, appreciate cardiology's assistance ? Troponin elevation secondary to demand ischemia ? Will continue with daily steroids 2. Anemia ? Unclear etiology at the moment ? Iron studies did not show deficiency and stool studies are still pending ? Continue with PPI ? Will transfuse 1 unit today 3. MADONNA on CKD 3 ? Creatinine peaked at 4.77 and he developed hyperkalemia ? Temporary dialysis catheter was placed and he had dialysis over the last couple of days. Renal function is much improved down to 2.97 4. DM2 ? Sliding scale insulin ? Accu-Cheks ACHS ? Long-acting insulin ? Will monitor and make adjustments as necessary 5. Essential HTN/HLD ? Hold lisinopril secondary to his MADONNA ? Continue with Zetia ? Will monitor and make adjustments as necessary DVT: SCDs Charges/Coding Visit Charges Inpatient E&M: 88244 Subs Hosp L2 04/08/25 1037 <Electronically signed by Jose Moore MD> Cosigner Signature (if applicable): CC: ~ Signed [facility] Work Phone: [phone] 287-659706-08-2025 Progress note [facility] Medical Records Department [address] [place] [address] Progress Note - Hospitalist 04/08/25 1026 MR#: [id number] Acct: [id number] Name: ENOC ARMANDO Rep #:[id number] : 1945 79 From: Jose lui MD PCP: Dr. Ryley Jeter MD Status:ADM IN Location: [place] [address] Subjective Subjective Feels better today than he did yesterday, he is trying to frustrated with being here, his creatinine was better down the 2.97. Unfortunately his hemoglobin is 6.9, he is getting a unit of blood todayand we are still awaiting stool sample Objective Data Objective Data Vital Signs: Vital Signs Temp Pulse Resp BP Pulse Ox O2 Del Method O2 Flow Rate 97.4 F L 83 15 143/61 H 97 Nasal Cannula 2 04/08/25 08:33 04/08/25 08:34 04/08/25 08:33 04/08/25 08:34 04/08/25 08:33 04/08/25 08:33 04/08/25 08:33 FiO2 30 04/08/25 06:30 Oxygen Flow Rate (L/min) 2 Oxygen Delivery Method Nasal Cannula Weight: 144 lb 9.972 oz Body Mass Index (BMI) 22.6 Intake & Output: Intake and Output for Last 24 Hours 04/07/25 04/08/25 04/09/25 03:59 03:59 03:59 Intake Total 2205 / 2205 895 / 895 100 / 100 Output Total 2150 / 2150 3840 / 3840 200 / 200 Balance 55 / 55 -2945 / -2945 -100 / -100 Lab / Micro Data 04/08/25 03:42 04/08/25 03:42 Labs: Laboratory Results - last 24 hr 04/07/25 06:25: Iron 27 L, TIBC 270, Iron Saturation 10.0, Unsaturated IBC 243, Ferritin 69 04/07/25 06:46: POC Glucose 392 H 04/07/25 13:13: POC Glucose 330 H 04/07/25 16:21: POC Glucose 333 H 04/07/25 21:14: POC Glucose 402 H 04/08/25 03:42: WBC 8.6, RBC 2.34 L, Hgb 6.9 L, Hct 21.5 L, MCV 91.9, MCH 29.5, MCHC 32.1, RDW Std Deviation 44.2 H, RDW Coeff of Humaira 13.5, Plt Count 176, MPV 12.5 H, Immature Gran % (Auto) 0.500, Neut % (Auto) 88.0 H, Lymph % (Auto) 7.3 L, Ada % (Auto) 4.2, Eos % (Auto) 0.0, Baso % (Auto) 0.0, Absolute Neuts (auto) 7.6, Absolute Lymphs (auto) 0.63 L, Nucleated RBC % 0, Sodium 136, Potassium 4.3, Chloride 100, Carbon Dioxide 20.3 L, Anion Gap 16 H, BUN 62 H, Creatinine 2.97 H, Estim Creat Clear Calc 16.83 L, Est GFR (MDRD) Non-Af 20 L, BUN/Creatinine Ratio 20.8 H, Glucose 395 H, Calcium 8.5 04/08/25 06:18: POC Glucose 361 H 04/08/25 07:43: Blood Type A POSITIVE, Antibody Screen NEGATIVE, Crossmatch See Detail Micro: Microbiology 04/03/25 02:25 Blood Culture (Wb) - Anticubital Left Blood Culture - Final No growth in 5 days. 04/03/25 03:50 Blood Culture (Wb) - Anticubital Left Blood Culture - Final No growth in 5 days. 04/03/25 05:51 Urine, Clean Catch Urine Culture - Final Culture exhibits no growth. 04/03/25 05:46 Wound - Elbow Skin and Soft Tissue MRSA/MSSA (PCR - Final 04/03/25 05:10 Mucosa - Nasopharyngeal Respiratory Panel (PCR) - Final 04/03/25 05:51 Urine, Clean Catch Legionella Antigen - Final 04/03/25 05:51 Urine Catheter - Catheter Streptococcus pneumoniae Antigen (M- Final 04/03/25 00:25 Mucosa - Nose SARS-CoV-2, Influenza & RSV (PCR) - Final Rhythm Strip Rhythm Strip: Sinus Rhythm Rate: 86 Physical Exam Narrative General: Alert, Oriented x3, Cooperative, No apparent distress HEENT: Atraumatic, PERRLA, EOMI, Normocephalic Oral: Moist Mucosa Neck: Supple, No JVD, right temporary dialysis catheter Lungs: Diminished, Normal air movement, No rhonchi, No wheeze, No rales Cardiovascular: Regular rate, Regular Rhythm, Normal S1, Normal S2, No murmurs Abdomen: Soft, Non Tender, Non-Distended, No Hepato-splenomegaly Extremities: No edema, Capillary Refill Less than 3 Seconds Skin: Lower extremities are wrapped Musculoskeletal: No Tenderness to Palpation of Joints or Extremities Neurological: No focal neurological deficits, moves all extremities Psych/Mental Status: Normal Affect, Appropriate Assessment & Plan Assessment/Plan (1) Acute hypoxic respiratory failure: PLAN: Plan 1. 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 Maintaining his oxygen saturations today on 2 L nasal cannula ? She has completed azithromycin, will continue with Rocephin for another 2 days, his white count has normalized ? Sputum culture is pending otherwise urine culture blood cultures so far negative ? Echocardiogram with an EF of 40% and stage I diastolic dysfunction with RVSP of 41 mmHg ? Continue with dialysis ? He had a heart cath 2 years ago at [facility] with 2 blockages that could not be revascularized, appreciate cardiology's assistance ? Troponin elevation secondary to demand ischemia ? Will continue with daily steroids 2. Anemia ? Unclear etiology at the moment ? Iron studies did not show deficiency and stool studies are still pending ? Continue with PPI ? Will transfuse 1 unit today 3. MADONNA on CKD 3 ? Creatinine peaked at 4.77 and he developed hyperkalemia ? Temporary dialysis catheter was placed and he had dialysis over the last couple of days. Renal function is much improved down to 2.97 4. DM2 ? Sliding scale insulin ? Accu-Cheks ACHS ? Long-acting insulin ? Will monitor and make adjustments as necessary 5. Essential HTN/HLD ? Hold lisinopril secondary to his MADONNA ? Continue with Zetia ? 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 Ryley Jeter MD Status:ADM IN Location: [place] [address] Objective Data Objective Data Vital Signs: Vital Signs Last response 3 Temperature 36.8 C 04/07/25 15:30 Temperature Source Temporal 04/07/25 15:30 Pulse Rate 80 04/07/25 15:30 Pulse Strength Normal (2+) 04/06/25 10:00 Respiratory Rate 14 04/07/25 15:30 Respiratory Effort Normal, Non-Labored 04/07/25 16:00 Respiratory Depth Normal 04/07/25 16:00 Respiratory Pattern Normal 04/07/25 16:00 Blood Pressure 129/48 H 04/07/25 15:30 Blood Pressure Mean 75 04/07/25 15:30 Blood Pressure Source Monitor 04/07/25 15:30 Blood Pressure Position Supine 04/07/25 15:30 Blood Pressure Location Left Arm 04/07/25 11:45 Pulse Ox 93 04/07/25 15:30 Oxygen Delivery Method Nasal Cannula 04/07/25 16:00 Oxygen Flow Rate (L/min) 2 04/07/25 16:00 Fraction of Inspired Oxygen (FIO2) 21 04/06/25 01:10 I&O: I&O Last 24 Hours 3 04/06/25 04/07/25 04/07/25 23:59 11:59 23:59 Intake Total 550 / 2010 255 / 595 340 / 595 Output Total 1749 / 2049 3380 / 3490 110 / 3490 Balance -1200 / -40 -3125 / -2895 230 / -2895 I&O: Total Stay 3 04/02/25 23:59 thru 04/07/25 16:01 Intake Total 5545.73 Output Total 6890 Balance -1344.27 Current Meds Ordered / Administered: Current meds ordered / Administered 3 Generic Name Dose Route Start Last Admin Trade Name Freq PRN Reason Stop Dose Admin Acetaminophen 650 mg 04/03/25 05:17 Acetaminophen 325 Mg Tablet PO Q4H PRN PRN Fever, pain 1-08/10 Al Hydroxide/Mg Hydroxide 30 ml 04/03/25 05:17 Mag Hydrox/Al Hydrox/Simeth 30 Ml Udc PO Q6H PRN PRN Gastric Burning Albuterol Sulfate 2.5 mg 04/03/25 05:17 04/03/25 11:06 Albuterol 2.5 Mg/3 Ml Vial.Neb. INHALATION 2.5 mg Q2H PRN PRN Administration Dyspnea, wheezing Albuterol/Ipratropium 3 ml 04/04/25 19:00 04/07/25 13:37 Ipratropium/Albuterol Sulfate 3 Ml Ampul.Neb INHALATION 3 ml Q6HWA.RT DIDI Administration Alteplase, Recombinant 2 mg 04/06/25 11:24 Alteplase 2 Mg/2 Ml Vial IV 04/07/25 23:25 X1 PRN HD catheter dysfunction Amlodipine Besylate 10 mg 04/03/25 12:00 04/07/25 13:22 Amlodipine 10 Mg Tablet PO 10 mg 1200 DIDI Administration Protocol Aspirin 81 mg 04/03/25 08:00 04/07/25 13:14 Aspirin E.C. 81 Mg Tablet PO 81 mg BREAKFAST DIDI Administration Ezetimibe 10 mg 04/03/25 10:00 04/07/25 13:15 Ezetimibe 10 Mg Tablet PO 10 mg DAILY DIDI Administration Glucagon 1 mg 04/03/25 05:17 Glucagon 1 Mg/Ml Syringe IM X1 PRN HYPOGLYCEMIA Protocol Guaifenesin 10 ml 04/03/25 05:17 Guaifenesin 10 Ml Udc (200mg/10ml) PO Q4H PRN PRN COUGH Hemodialysis Solution 6 bag 04/07/25 08:00 04/07/25 11:29 Pureflow B 2k Dialysis Soln 1 Bag PF 04/07/25 19:53 6 bag UD DIDI Administration Protocol Heparin Sodium (Porcine) 2,500 units 04/05/25 16:42 04/05/25 17:32 Heparin 10,000 Units/10 Ml Vial IV 2,500 units UD PRN Administration Dialysis Cath Heparin Flush Heparin Sodium (Porcine) 1,000 - 3,000 units 04/06/25 11:24 04/07/25 11:30 Heparin 10,000 Units/10 Ml Vial IV 04/07/25 23:25 1,300 units X1 PRN Administration HD catheter closing Hydralazine HCl 50 mg 04/03/25 06:00 04/07/25 13:23 Hydralazine 50 Mg Tablet PO Not Given Q8 DIDI Protocol Hydralazine HCl 10 mg 04/03/25 05:17 Hydralazine 20 Mg/Ml Vial IV Q4H PRN PRN SBP > 160 Protocol Azithromycin 500 mg/ Sodium 255 mls @ 255 mls/hr 04/03/25 22:00 04/07/25 00:51 Chloride IV Infused Q24H DIDI Infusion Ceftriaxone Sodium 1 gm in 50 mls @ 100 mls/hr 04/03/25 22:00 04/06/25 23:33 Rocephin IV Infused Q24H DIDI Infusion Dextrose 250 mls @ 0 mls/hr 04/03/25 05:17 Dextrose 10%-Water IV .Q0M PRN HYPOGLYCEMIA Protocol As Directed Sodium Chloride 250 mls @ 15 mls/hr 04/03/25 05:18 04/06/25 14:45 IV Infused .[id number] PRN Infusion Saline Flush Sodium Chloride 250 mls @ 15 mls/hr 04/03/25 05:18 IV .[id number] PRN Additional IVPB Infusion Dextrose 250 mls @ 999 mls/hr 04/03/25 13:17 Dextrose 10%-Water IV .Q16M PRN Hypoglycemic Protocol Protocol Pantoprazole Sodium 40 mg/ 100 mls @ 330 mls/hr 04/07/25 15:15 04/07/25 16:01 Sodium Chloride IV Infused Q24 DIDI Infusion Insulin Glargine 15 unit 04/04/25 08:50 04/07/25 13:20 Insulin Glargine-Yfgn 100 Unit/Ml Pen SC 15 unit DAILY DIDI Administration Insulin Human Lispro 0 unit 04/04/25 16:00 04/07/25 16:23 Insulin Lispro 100 Unit/Ml Insuln.Pen SC 5 units ACHS DIDI Administration Protocol Melatonin 3 mg 04/03/25 05:17 Melatonin 3 Mg Tablet PO QHS PRN PRN INSOMNIA Metoprolol Succinate 25 mg 04/03/25 10:00 04/07/25 13:14 Metoprolol(Xl)Succ 25 Mg Tablet PO 25 mg DAILY DIDI Administration Protocol Nitroglycerin 0.4 mg 04/03/25 05:17 Nitroglycerin (Inpatient Use) 0.4 Mg Tab.Subl SL Q5M PRN CARDIAC/CHEST PAIN Ondansetron HCl 4 mg 04/03/25 05:17 Ondansetron 4 Mg/2 Ml Vial IV Q8H PRN PRN NAUSEA/VOMITING Prednisone 40 mg 04/05/25 08:00 04/07/25 13:15 Prednisone 20 Mg Tablet PO 04/10/25 08:01 40 mg BREAKFAST DIDI Administration Prochlorperazine Edisylate 5 mg 04/03/25 05:17 Prochlorperazine 10 Mg/2 Ml Vial IV Q4H PRN PRN Breakthrough Nausea/Vomiting Senna/Docusate Sodium 2 tablet 04/03/25 05:17 Senna/Docusate Sodium 1 Tablet PO BID PRN PRN Constipation Sodium Chloride 10 - 40 ml 04/03/25 05:18 04/07/25 11:28 0.9% Saline Lock 10 Ml Syringe IV 40 ml UD PRN Administration SALINE FLUSH Sodium Chloride 10 ml 04/05/25 16:42 0.9% Saline Lock 10 Ml Syringe IV UD PRN Dialysis Catheter Flush Sodium Chloride 200 ml 04/06/25 09:45 0.9% Normal Saline 1,000 Ml Iv.Soln. IV 04/07/25 21:45 X1 PRN to maintain SBP >90mmHg during Dialysis Sodium Chloride 1,000 ml 04/06/25 11:25 04/07/25 11:29 0.9% Normal Saline 1,000 Ml Iv.Soln. OPERA.SITE 04/07/25 23:25 1,000 ml X1 DIDI Administration Sodium Chloride 200 ml 04/06/25 11:24 0.9% Normal Saline 1,000 Ml Iv.Soln. IV 04/07/25 23:25 X1 PRN to maintain SBP >90mmHg during Dialysis Sodium Chloride 200 ml 04/07/25 07:48 0.9% Normal Saline 1,000 Ml Iv.Soln. IV 04/07/25 19:52 X1 PRN to maintain SBP >90mmHg during Dialysis Tamsulosin HCl 0.4 mg 04/03/25 17:30 04/07/25 16:23 Tamsulosin Hcl 0.4 Mg Capsule PO 0.4 mg Ayla@[id number] [facility] Administration Lab / Micro Data 04/07/25 06:25 04/07/25 06:25 Labs: Laboratory Results - last 24 hr 04/06/25 22:58: POC Glucose 280 H 04/07/25 06:25: WBC 10.4, RBC 2.50 L, Hgb 7.7 L, Hct 23.1 L, MCV 92.4, MCH 30.8,MCHC 33.3, RDW Std Deviation 46.1 H, RDW Coeff of Humaira 13.7, Plt Count 191, MPV 12.3 H, Immature Gran % (Auto) 0.300, Neut % (Auto) 79.0 H, Lymph % (Auto) 12.6 L, Ada % (Auto) 8.0, Eos % (Auto) 0.1, Baso % (Auto) 0.0, Absolute Neuts (auto)8.2 H, Absolute Lymphs (auto) 1.30, Nucleated RBC % 0, Sodium 137, Potassium 4.3, Chloride 99, Carbon Dioxide 21.3, Anion Gap 16 H, BUN 80 H, Creatinine 3.61H, Estim Creat Clear Calc 14.50 L, Est GFR (MDRD) Non-Af 16 L, BUN/Creatinine Ratio 22.1 H, Glucose 423 H, Calcium 8.2 04/07/25 06:46: POC Glucose 392 H 04/07/25 16:21: POC Glucose 333 H Rhythm Strip Rhythm Strip: Sinus Rhythm Rate: 86 Assessment and Plan . Assessment and plan: PULMONARY BRIEF UPDATE NOTE Pt remains hemodynamically stable on 2L NC. Underwent HD as per nephrology yesterday. Cont recommendations as per pulmonary/chief of police note yesterday. We will monitor peripherally over the weekend, but please call us any time if questions or if clinical worsening. 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 Ryley Jeter MD Status:ADM IN Location: [place] [address]- 1 Objective Data Objective Data Vital Signs: Vital Signs Last response 3 Temperature 36.8 C 04/07/25 15:30 Temperature Source Temporal 04/07/25 15:30 Pulse Rate 80 04/07/25 15:30 Pulse Strength Normal (2+) 04/06/25 10:00 Respiratory Rate 14 04/07/25 15:30 Respiratory Effort Normal, Non-Labored 04/07/25 16:00 Respiratory Depth Normal 04/07/25 16:00 Respiratory Pattern Normal 04/07/25 16:00 Blood Pressure 129/48 H 04/07/25 15:30 Blood Pressure Mean 75 04/07/25 15:30 Blood Pressure Source Monitor 04/07/25 15:30 Blood Pressure Position Supine 04/07/25 15:30 Blood Pressure Location Left Arm 04/07/25 11:45 Pulse Ox 93 04/07/25 15:30 Oxygen Delivery Method Nasal Cannula 04/07/25 16:00 Oxygen Flow Rate (L/min) 2 04/07/25 16:00 Fraction of Inspired Oxygen (FIO2) 21 04/06/25 01:10 I&O: I&O Last 24 Hours 3 04/06/25 04/07/25 04/07/25 23:59 11:59 23:59 Intake Total 550 / 2010 255 / 595 340 / 595 Output Total 1749 / 2049 3380 / 3490 110 / 3490 Balance -1200 / -40 -3125 / -2895 230 / -2895 I&O: Total Stay 3 04/02/25 23:59 thru 04/07/25 16:01 Intake Total 5545.73 Output Total 6890 Balance -1344.27 Current Meds Ordered / Administered: Current meds ordered / Administered 3 Generic Name Dose Route Start Last Admin Trade Name Freq PRN Reason Stop Dose Admin Acetaminophen 650 mg 04/03/25 05:17 Acetaminophen 325 Mg Tablet PO Q4H PRN PRN Fever, pain 1-08/10 Al Hydroxide/Mg Hydroxide 30 ml 04/03/25 05:17 Mag Hydrox/Al Hydrox/Simeth 30 Ml Udc PO Q6H PRN PRN Gastric Burning Albuterol Sulfate 2.5 mg 04/03/25 05:17 04/03/25 11:06 Albuterol 2.5 Mg/3 Ml Vial.Neb. INHALATION 2.5 mg Q2H PRN PRN Administration Dyspnea, wheezing Albuterol/Ipratropium 3 ml 04/04/25 19:00 04/07/25 13:37 Ipratropium/Albuterol Sulfate 3 Ml Ampul.Neb INHALATION 3 ml Q6HWA.RT DIDI Administration Alteplase, Recombinant 2 mg 04/06/25 11:24 Alteplase 2 Mg/2 Ml Vial IV 04/07/25 23:25 X1 PRN HD catheter dysfunction Amlodipine Besylate 10 mg 04/03/25 12:00 04/07/25 13:22 Amlodipine 10 Mg Tablet PO 10 mg 1200 DIDI Administration Protocol Aspirin 81 mg 04/03/25 08:00 04/07/25 13:14 Aspirin E.C. 81 Mg Tablet PO 81 mg BREAKFAST DIDI Administration Ezetimibe 10 mg 04/03/25 10:00 04/07/25 13:15 Ezetimibe 10 Mg Tablet PO 10 mg DAILY DIDI Administration Glucagon 1 mg 04/03/25 05:17 Glucagon 1 Mg/Ml Syringe IM X1 PRN HYPOGLYCEMIA Protocol Guaifenesin 10 ml 04/03/25 05:17 Guaifenesin 10 Ml Udc (200mg/10ml) PO Q4H PRN PRN COUGH Hemodialysis Solution 6 bag 04/07/25 08:00 04/07/25 11:29 Pureflow B 2k Dialysis Soln 1 Bag PF 04/07/25 19:53 6 bag UD DIDI Administration Protocol Heparin Sodium (Porcine) 2,500 units 04/05/25 16:42 04/05/25 17:32 Heparin 10,000 Units/10 Ml Vial IV 2,500 units UD PRN Administration Dialysis Cath Heparin Flush Heparin Sodium (Porcine) 1,000 - 3,000 units 04/06/25 11:24 04/07/25 11:30 Heparin 10,000 Units/10 Ml Vial IV 04/07/25 23:25 1,300 units X1 PRN Administration HD catheter closing Hydralazine HCl 50 mg 04/03/25 06:00 04/07/25 13:23 Hydralazine 50 Mg Tablet PO Not Given Q8 DIDI Protocol Hydralazine HCl 10 mg 04/03/25 05:17 Hydralazine 20 Mg/Ml Vial IV Q4H PRN PRN SBP > 160 Protocol Azithromycin 500 mg/ Sodium 255 mls @ 255 mls/hr 04/03/25 22:00 04/07/25 00:51 Chloride IV Infused Q24H DIDI Infusion Ceftriaxone Sodium 1 gm in 50 mls @ 100 mls/hr 04/03/25 22:00 04/06/25 23:33 Rocephin IV Infused Q24H DIDI Infusion Dextrose 250 mls @ 0 mls/hr 04/03/25 05:17 Dextrose 10%-Water IV .Q0M PRN HYPOGLYCEMIA Protocol As Directed Sodium Chloride 250 mls @ 15 mls/hr 04/03/25 05:18 04/06/25 14:45 IV Infused .[id number] PRN Infusion Saline Flush Sodium Chloride 250 mls @ 15 mls/hr 04/03/25 05:18 IV .[id number] PRN Additional IVPB Infusion Dextrose 250 mls @ 999 mls/hr 04/03/25 13:17 Dextrose 10%-Water IV .Q16M PRN Hypoglycemic Protocol Protocol Pantoprazole Sodium 40 mg/ 100 mls @ 330 mls/hr 04/07/25 15:15 04/07/25 16:01 Sodium Chloride IV Infused Q24 DIDI Infusion Insulin Glargine 15 unit 04/04/25 08:50 04/07/25 13:20 Insulin Glargine-Yfgn 100 Unit/Ml Pen SC 15 unit DAILY DIDI Administration Insulin Human Lispro 0 unit 04/04/25 16:00 04/07/25 16:23 Insulin Lispro 100 Unit/Ml Insuln.Pen SC 5 units ACHS DIDI Administration Protocol Melatonin 3 mg 04/03/25 05:17 Melatonin 3 Mg Tablet PO QHS PRN PRN INSOMNIA Metoprolol Succinate 25 mg 04/03/25 10:00 04/07/25 13:14 Metoprolol(Xl)Succ 25 Mg Tablet PO 25 mg DAILY DIDI Administration Protocol Nitroglycerin 0.4 mg 04/03/25 05:17 Nitroglycerin (Inpatient Use) 0.4 Mg Tab.Subl SL Q5M PRN CARDIAC/CHEST PAIN Ondansetron HCl 4 mg 04/03/25 05:17 Ondansetron 4 Mg/2 Ml Vial IV Q8H PRN PRN NAUSEA/VOMITING Prednisone 40 mg 04/05/25 08:00 04/07/25 13:15 Prednisone 20 Mg Tablet PO 04/10/25 08:01 40 mg BREAKFAST DIDI Administration Prochlorperazine Edisylate 5 mg 04/03/25 05:17 Prochlorperazine 10 Mg/2 Ml Vial IV Q4H PRN PRN Breakthrough Nausea/Vomiting Senna/Docusate Sodium 2 tablet 04/03/25 05:17 Senna/Docusate Sodium 1 Tablet PO BID PRN PRN Constipation Sodium Chloride 10 - 40 ml 04/03/25 05:18 04/07/25 11:28 0.9% Saline Lock 10 Ml Syringe IV 40 ml UD PRN Administration SALINE FLUSH Sodium Chloride 10 ml 04/05/25 16:42 0.9% Saline Lock 10 Ml Syringe IV UD PRN Dialysis Catheter Flush Sodium Chloride 200 ml 04/06/25 09:45 0.9% Normal Saline 1,000 Ml Iv.Soln. IV 04/07/25 21:45 X1 PRN to maintain SBP >90mmHg during Dialysis Sodium Chloride 1,000 ml 04/06/25 11:25 04/07/25 11:29 0.9% Normal Saline 1,000 Ml Iv.Soln. OPERA.SITE 04/07/25 23:25 1,000 ml X1 DIDI Administration Sodium Chloride 200 ml 04/06/25 11:24 0.9% Normal Saline 1,000 Ml Iv.Soln. IV 04/07/25 23:25 X1 PRN to maintain SBP >90mmHg during Dialysis Sodium Chloride 200 ml 04/07/25 07:48 0.9% Normal Saline 1,000 Ml Iv.Soln. IV 04/07/25 19:52 X1 PRN to maintain SBP >90mmHg during Dialysis Tamsulosin HCl 0.4 mg 04/03/25 17:30 04/07/25 16:23 Tamsulosin Hcl 0.4 Mg Capsule PO 0.4 mg Simrana@[id number] DIDI Administration Lab / Micro Data 04/07/25 06:25 04/07/25 06:25 Labs: Laboratory Results - last 24 hr 04/06/25 22:58: POC Glucose 280 H 04/07/25 06:25: WBC 10.4, RBC 2.50 L, Hgb 7.7 L, Hct 23.1 L, MCV 92.4, MCH 30.8,MCHC 33.3, RDW Std Deviation 46.1 H, RDW Coeff of Humaira 13.7, Plt Count 191, MPV 12.3 H, Immature Gran % (Auto) 0.300, Neut % (Auto) 79.0 H, Lymph % (Auto) 12.6 L, Ada % (Auto) 8.0, Eos % (Auto) 0.1, Baso % (Auto) 0.0, Absolute Neuts (auto)8.2 H, Absolute Lymphs (auto) 1.30, Nucleated RBC % 0, Sodium 137, Potassium 4.3, Chloride 99, Carbon Dioxide 21.3, Anion Gap 16 H, BUN 80 H, Creatinine 3.61H, Estim Creat Clear Calc 14.50 L, Est GFR (MDRD) Non-Af 16 L, BUN/Creatinine Ratio 22.1 H, Glucose 423 H, Calcium 8.2 04/07/25 06:46: POC Glucose 392 H 04/07/25 16:21: POC Glucose 333 H Rhythm Strip Rhythm Strip: Sinus Rhythm Rate: 86 Assessment and Plan . Assessment and plan: PULMONARY BRIEF UPDATE NOTE Pt remains hemodynamically stable on 2L NC. Underwent HD as per nephrology yesterday. Cont recommendations as per pulmonary/chief of police note yesterday. We will monitor peripherally over the weekend, but please call us any time if questions or if clinical worsening. Nate Forbes MD 04/07/25 8681 Cosigner Signature (if applicable): CC: ~ Signed [facility]06-07-2025 Progress note Author Jose Moore [facility] Note Date/Time April 07, 2025 3:15p m [facility] Medical Records Department [address] [place] [address] Progress Note - Hospitalist 04/07/25 1450 MR#: [id number] Acct: [id number] Name: ENOC ARMANDO Rep #:[id number] : 1945 79 From: Jose lui MD PCP: Dr. Ryley Jeter MD Status:ADM IN Location: [place] [address] Subjective Subjective Doing well, no issues overnight. Feels little bit tired Objective Data Objective Data Vital Signs: Vital Signs Temp Pulse Resp BP Pulse Ox O2 Del Method O2 Flow Rate 98.3 F 88 16 127/47 H 95 Nasal Cannula 2 04/07/25 11:45 04/07/25 13:38 04/07/25 13:38 04/07/25 13:23 04/07/25 12:50 04/07/25 11:45 04/07/25 12:50 FiO2 21 04/06/25 01:10 Oxygen Flow Rate (L/min) 2 Oxygen Delivery Method Nasal Cannula Weight: 134 lb 7.712 oz Body Mass Index (BMI) 21.0 Intake & Output: Intake and Output for Last 24 Hours 04/06/25 04/07/25 04/08/25 03:59 03:59 03:59 Intake Total 945 / 945 2205 / 2205 Output Total 700 / 700 2150 / 2150 3080 / 3080 Balance 245 / 245 55 / 55 -3080 / -3080 Lab / Micro Data 04/07/25 06:25 04/07/25 06:25 Labs: Laboratory Results - last 24 hr 04/06/25 08:40: Phosphorus 7.1 H, Magnesium 2.8 H 04/06/25 16:09: POC Glucose 269 H 04/06/25 22:58: POC Glucose 280 H 04/07/25 06:25: WBC 10.4, RBC 2.50 L, Hgb 7.7 L, Hct 23.1 L, MCV 92.4, MCH 30.8,MCHC 33.3, RDW Std Deviation 46.1 H, RDW Coeff of Humaira 13.7, Plt Count 191, MPV 12.3 H, Immature Gran % (Auto) 0.300, Neut % (Auto) 79.0 H, Lymph % (Auto) 12.6 L, Ada % (Auto) 8.0, Eos % (Auto) 0.1, Baso % (Auto) 0.0, Absolute Neuts (auto)8.2 H, Absolute Lymphs (auto) 1.30, Nucleated RBC % 0, Sodium 137, Potassium 4.3, Chloride 99, Carbon Dioxide 21.3, Anion Gap 16 H, BUN 80 H, Creatinine 3.61H, Estim Creat Clear Calc 14.50 L, Est GFR (MDRD) Non-Af 16 L, BUN/Creatinine Ratio 22.1 H, Glucose 423 H, Calcium 8.2 04/07/25 06:46: POC Glucose 392 H Micro: Microbiology 04/03/25 02:25 Blood Culture (Wb) - Anticubital Left Blood Culture - Preliminary No growth in 48 hours. 04/03/25 03:50 Blood Culture (Wb) - Anticubital Left Blood Culture - Preliminary No growth in 48 hours. 04/03/25 05:51 Urine, Clean Catch Urine Culture - Final Culture exhibits no growth. 04/03/25 05:46 Wound - Elbow Skin and Soft Tissue MRSA/MSSA (PCR - Final 04/03/25 05:10 Mucosa - Nasopharyngeal Respiratory Panel (PCR) - Final 04/03/25 05:51 Urine, Clean Catch Legionella Antigen - Final 04/03/25 05:51 Urine Catheter - Catheter Streptococcus pneumoniae Antigen (M- Final 04/03/25 00:25 Mucosa - Nose SARS-CoV-2, Influenza & RSV (PCR) - Final Rhythm Strip Rhythm Strip: Sinus Rhythm Rate: 86 Physical Exam Narrative General: Alert, Oriented x3, Cooperative, No apparent distress HEENT: Atraumatic, PERRLA, EOMI, Normocephalic Oral: Moist Mucosa Neck: Supple, No JVD, right temporary dialysis catheter Lungs: Diminished, Normal air movement, No rhonchi, No wheeze, No rales Cardiovascular: Regular rate, Regular Rhythm, Normal S1, Normal S2, No murmurs Abdomen: Soft, Non Tender, Non-Distended, No Hepato-splenomegaly Extremities: No edema, Capillary Refill Less than 3 Seconds Skin: Lower extremities are wrapped Musculoskeletal: No Tenderness to Palpation of Joints or Extremities Neurological: No focal neurological deficits, moves all extremities Psych/Mental Status: Normal Affect, Appropriate Assessment & Plan Assessment/Plan (1) Acute hypoxic respiratory failure: PLAN: Plan #Acute hypoxic respiratory failure due to acute on chronic COPD examination and probable heart failure as well as superimposed pneumonia * back on BIPAP this morning due to worsening shortness of breath. * sputum cultures pending. Urine for strep and legionella negative. Respiratory panel negative. * breathing treatment with bronchodilators. Titrate oxygen to maintain sats >90% * critical care on board. * 2D echo ordered showed EF of 40% with LV hypokinesis and stage I diastolic dysfunction and RVSP of 41mmHg. * cardiology consulted. Per cardiology he had a cardiac cath 2 years ago at [facility] and was told he had 2 blockages which were not amenable to revascularization. Records requested from [facility]. Further management as per cardiology. 04/06/2025: Breath sounds are improving and he is maintaining nasal cannula after dialysis 04/07/2025: Maintaining on nasal cannula. He states that he feels weak, PT and OTare on board #Anemia ? Unclear etiology at the moment but he has been trending down since admission ? Will initiate workup today with iron studies as well as a fecal occult, and will cover with PPI since he is on steroids ? There is no GI coverage this weekend however he does appear stable #Elevated cardiac enzymes: * initial troponin was 58, and only peaked at 76. 2D echo as above. * Further records requested from [facility] as above * cardiology on board 04/06/2025: Raymond to be due to demand ischemia though he is in the setting of renalfailure. No further recommendations #MADONNA on CKD III * Cr trended up further to 4.63 today. Potassium is also elevated at 6.3 * lasix and lisinopril on hold. Potassium also held * Osborne catheter in situ. Patient given hyperkalemia protocol and also given Kayexalate. * Nephrology started patient on sodium bicarb this morning also. Patient counseled that if these measures do not help then he will need to start temporary dialysis. * will repeat BMP after kayexalate to monitor potassium 04/06/2025: Continue with dialysis, appreciate nephrology's assistance. He had a temporary dialysis catheter placed on 04/05/2025 04/07/2025: Renal function continues to improve with temporary dialysis #Leukocytosis: WBCs at 20 today, down from 22 yesterday. Likely due to IV steroid she is receiving. Will monitor.. Switch to PO prednisone. 04/06/2025: Will continue with empiric antibiotics, his leukocytosis continues to improve is down to 14 today 04/07/2025: White count has normalized, culture data so far is negative still awaiting sputum samples. #Type 2 diabetes mellitus: on lantus. ISS. Accuchecks ACHS #Hyperlipidemia: on ezetimibe #Nicotine dependence: counseled to quit. Nicotine patch prn. DVT: SCDs Charges/Coding Visit Charges Inpatient E&M: 89897 Subs Hosp L2 04/07/25 1515 <Electronically signed by Jose Moore MD> Cosigner Signature (if applicable): CC: ~ Signed [facility] Work Phone: 1(273) 508-647106-07-2025 Progress note [facility] Medical Records Department [address] [place] [address] Progress Note - Hospitalist 04/07/25 1450 MR#: [id number] Acct: [id number] Name: ENOC ARMANDO Rep #:[id number] : 1945 79 From: Jose lui MD PCP: Dr. Ryley Jeter MD Status:ADM IN Location: [place] [address] Subjective Subjective Doing well, no issues overnight. Feels little bit tired Objective Data Objective Data Vital Signs: Vital Signs Temp Pulse Resp BP Pulse Ox O2 Del Method O2 Flow Rate 98.3 F 88 16 127/47 H 95 Nasal Cannula 2 04/07/25 11:45 04/07/25 13:38 04/07/25 13:38 04/07/25 13:23 04/07/25 12:50 04/07/25 11:45 04/07/25 12:50 FiO2 21 04/06/25 01:10 Oxygen Flow Rate (L/min) 2 Oxygen Delivery Method Nasal Cannula Weight: 134 lb 7.712 oz Body Mass Index (BMI) 21.0 Intake & Output: Intake and Output for Last 24 Hours 04/06/25 04/07/25 04/08/25 03:59 03:59 03:59 Intake Total 945 / 945 2205 / 2205 Output Total 700 / 700 2150 / 2150 3080 / 3080 Balance 245 / 245 55 / 55 -3080 / -3080 Lab / Micro Data 04/07/25 06:25 04/07/25 06:25 Labs: Laboratory Results - last 24 hr 04/06/25 08:40: Phosphorus 7.1 H, Magnesium 2.8 H 04/06/25 16:09: POC Glucose 269 H 04/06/25 22:58: POC Glucose 280 H 04/07/25 06:25: WBC 10.4, RBC 2.50 L, Hgb 7.7 L, Hct 23.1 L, MCV 92.4, MCH 30.8,MCHC 33.3, RDW Std Deviation 46.1 H, RDW Coeff of Humaira 13.7, Plt Count 191, MPV 12.3 H, Immature Gran % (Auto) 0.300, Neut % (Auto) 79.0 H, Lymph % (Auto) 12.6 L, Ada % (Auto) 8.0, Eos % (Auto) 0.1, Baso % (Auto) 0.0, Absolute Neuts (auto)8.2 H, Absolute Lymphs (auto) 1.30, Nucleated RBC % 0, Sodium 137, Potassium 4.3, Chloride 99, Carbon Dioxide 21.3, Anion Gap 16 H, BUN 80 H, Creatinine 3.61H, Estim Creat Clear Calc 14.50 L, Est GFR (MDRD) Non-Af 16 L, BUN/Creatinine Ratio 22.1 H, Glucose 423 H, Calcium 8.2 04/07/25 06:46: POC Glucose 392 H Micro: Microbiology 04/03/25 02:25 Blood Culture (Wb) - Anticubital Left Blood Culture - Preliminary No growth in 48 hours. 04/03/25 03:50 Blood Culture (Wb) - Anticubital Left Blood Culture - Preliminary No growth in 48 hours. 04/03/25 05:51 Urine, Clean Catch Urine Culture - Final Culture exhibits no growth. 04/03/25 05:46 Wound - Elbow Skin and Soft Tissue MRSA/MSSA (PCR - Final 04/03/25 05:10 Mucosa - Nasopharyngeal Respiratory Panel (PCR) - Final 04/03/25 05:51 Urine, Clean Catch Legionella Antigen - Final 04/03/25 05:51 Urine Catheter - Catheter Streptococcus pneumoniae Antigen (M- Final 04/03/25 00:25 Mucosa - Nose SARS-CoV-2, Influenza & RSV (PCR) - Final Rhythm Strip Rhythm Strip: Sinus Rhythm Rate: 86 Physical Exam Narrative General: Alert, Oriented x3, Cooperative, No apparent distress HEENT: Atraumatic, PERRLA, EOMI, Normocephalic Oral: Moist Mucosa Neck: Supple, No JVD, right temporary dialysis catheter Lungs: Diminished, Normal air movement, No rhonchi, No wheeze, No rales Cardiovascular: Regular rate, Regular Rhythm, Normal S1, Normal S2, No murmurs Abdomen: Soft, Non Tender, Non-Distended, No Hepato-splenomegaly Extremities: No edema, Capillary Refill Less than 3 Seconds Skin: Lower extremities are wrapped Musculoskeletal: No Tenderness to Palpation of Joints or Extremities Neurological: No focal neurological deficits, moves all extremities Psych/Mental Status: Normal Affect, Appropriate Assessment & Plan Assessment/Plan (1) Acute hypoxic respiratory failure: PLAN: Plan #Acute hypoxic respiratory failure due to acute on chronic COPD examination and probable heart failure as well as superimposed pneumonia * back on BIPAP this morning due to worsening shortness of breath. * sputum cultures pending. Urine for strep and legionella negative. Respiratory panel negative. * breathing treatment with bronchodilators. Titrate oxygen to maintain sats >90% * critical care on board. * 2D echo ordered showed EF of 40% with LV hypokinesis and stage I diastolic dysfunction and RVSP of 41mmHg. * cardiology consulted. Per cardiology he had a cardiac cath 2 years ago at [facility] and was told he had 2 blockages which were not amenable to revascularization. Records requested from [facility]. Further management as per cardiology. 04/06/2025: Breath sounds are improving and he is maintaining nasal cannula after dialysis 04/07/2025: Maintaining on nasal cannula. He states that he feels weak, PT and OTare on board #Anemia ? Unclear etiology at the moment but he has been trending down since admission ? Will initiate workup today with iron studies as well as a fecal occult, and will cover with PPI since he is on steroids ? There is no GI coverage this weekend however he does appear stable #Elevated cardiac enzymes: * initial troponin was 58, and only peaked at 76. 2D echo as above. * Further records requested from [facility] as above * cardiology on board 04/06/2025: Raymond to be due to demand ischemia though he is in the setting of renalfailure. No furtherrecommendations #MADONNA on CKD III * Cr trended up further to 4.63 today. Potassium is also elevated at 6.3 * lasix and lisinopril on hold. Potassium also held * Osborne catheter in situ. Patient given hyperkalemia protocol and also given Kayexalate. * Nephrology started patient on sodium bicarb this morning also. Patient counseled that if these measures do not help then he will need to start temporary dialysis. * will repeat BMP after kayexalate to monitor potassium 04/06/2025: Continue with dialysis, appreciate nephrology's assistance. He had a temporary dialysis catheter placed on 04/05/2025 04/07/2025: Renal function continues to improve with temporary dialysis #Leukocytosis: WBCs at 20 today, down from 22 yesterday. Likely due to IV steroid she is receiving.Will monitor.. Switch to PO prednisone. 04/06/2025: Will continue with empiric antibiotics, his leukocytosis continues to improve is down to 14 today 04/07/2025: White count has normalized, culture data so far is negative still awaiting sputum samples. #Type 2 diabetes mellitus: on lantus. ISS. Accuchecks ACHS #Hyperlipidemia: on ezetimibe #Nicotine dependence: counseled to quit. Nicotine patch prn. DVT: SCDs Charges/Coding Visit Charges Inpatient E&M: 51272 Subs Hosp L2 04/07/25 1515 Cosigner Signature (if applicable): CC: ~ Signed [facility]06-06-2025 Progress note Author Jose Moore [facility] Note Date/Time April 06, 2025 6:25p m [facility] Medical Records Department [address] [place] [address] Progress Note - Hospitalist 04/06/258 MR#: [id number] Acct: [id number] Name: ENOC ARMANDO Rep #:[id number] : 1945 79 From: Jose lui MD PCP: Dr. Ryley Jeter MD Status:ADM IN Location: [place] [address] Subjective Subjective Doing well, no issues overnight currently resting comfortably after dialysis Objective Data Objective Data Vital Signs: Vital Signs Temp Pulse Resp BP Pulse Ox O2 Del Method O2 Flow Rate 97.7 F L 88 16 124/54 H 92 Nasal Cannula 2 04/06/25 16:30 04/06/25 16:30 04/06/25 16:30 04/06/25 16:30 04/06/25 16:30 04/06/25 16:30 04/06/25 16:30 FiO2 21 04/06/25 01:10 Oxygen Flow Rate (L/min) 2 Oxygen Delivery Method Nasal Cannula Weight: 139 lb 8.842 oz Body Mass Index (BMI) 21.8 Intake & Output: Intake and Output for Last 24 Hours 04/05/25 04/06/25 04/07/25 03:59 03:59 03:59 Intake Total 1328.73 / 1328.73 945 / 945 1900 / 1900 Output Total 500 / 500 700 / 700 1850 / 1850 Balance 828.73 / 828.73 245 / 245 50 / 50 Lab / Micro Data 04/06/25 06:24 04/06/25 08:40 Labs: Laboratory Results - last 24 hr 04/05/25 16:51: POC Glucose 165 H 04/05/25 21:35: POC Glucose 282 H 04/06/25 06:24: WBC 14.8 H, RBC 2.57 L, Hgb 7.9 L, Hct 23.6 L, MCV 91.8, MCH 30.7, MCHC 33.5, RDW Std Deviation 46.2 H, RDW Coeff of Humaira 13.8, Plt Count 222,MPV 11.9, Immature Gran % (Auto) 0.500, Neut % (Auto) 83.3 H, Lymph % (Auto) 9.1L, Ada % (Auto) 7.0, Eos % (Auto) 0.0, Baso % (Auto) 0.1, Absolute Neuts (auto)12.3 H, Absolute Lymphs (auto) 1.34, Nucleated RBC % 0 04/06/25 06:25: POC Glucose 281 H 04/06/25 08:40: Sodium 139, Potassium 4.2, Chloride 100, Carbon Dioxide 21.0, Anion Gap 18 H, BUN 103 H*, Creatinine 4.73 H, Estim Creat Clear Calc 11.24 L, Est GFR (MDRD) Non-Af 12 L, BUN/Creatinine Ratio 21.8 H, Glucose 233 H, Calcium 8.3, Phosphorus 7.1 H, Magnesium 2.8 H 04/06/25 11:39: POC Glucose 225 H 04/06/25 16:09: POC Glucose 269 H Micro: Microbiology 04/03/25 02:25 Blood Culture (Wb) - Anticubital Left Blood Culture - Preliminary No growth in 48 hours. 04/03/25 03:50 Blood Culture (Wb) - Anticubital Left Blood Culture - Preliminary No growth in 48 hours. 04/03/25 05:51 Urine, Clean Catch Urine Culture - Final Culture exhibits no growth. 04/03/25 05:46 Wound - Elbow Skin and Soft Tissue MRSA/MSSA (PCR - Final 04/03/25 05:10 Mucosa - Nasopharyngeal Respiratory Panel (PCR) - Final 04/03/25 05:51 Urine, Clean Catch Legionella Antigen - Final 04/03/25 05:51 Urine Catheter - Catheter Streptococcus pneumoniae Antigen (M- Final 04/03/25 00:25 Mucosa - Nose SARS-CoV-2, Influenza & RSV (PCR) - Final Radiography Diagnostic Testing: Radiology Impression Chest X-Ray 04/05/25 18:02 IMPRESSION: Interval insertion of right IJ line with tip at SVC, likely in appropriate position. Lung findings are grossly unchanged. Reading Location: [facility] Rhythm Strip Rhythm Strip: Sinus Rhythm Rate: 86 Physical Exam Narrative General: Alert, Oriented x3, Cooperative, No apparent distress HEENT: Atraumatic, PERRLA, EOMI, Normocephalic Oral: Moist Mucosa Neck: Supple, No JVD, right temporary dialysis catheter Lungs: Diminished, Normal air movement, No rhonchi, No wheeze, No rales Cardiovascular: Regular rate, Regular Rhythm, Normal S1, Normal S2, No murmurs Abdomen: Soft, Non Tender, Non-Distended, No Hepato-splenomegaly Extremities: No edema, Capillary Refill Less than 3 Seconds Skin: Lower extremities are wrapped Musculoskeletal: No Tenderness to Palpation of Joints or Extremities Neurological: No focal neurological deficits, moves all extremities Psych/Mental Status: Normal Affect, Appropriate Assessment & Plan Assessment/Plan (1) Acute hypoxic respiratory failure: PLAN: Plan #Acute hypoxic respiratory failure due to acute on chronic COPD examination and probable heart failure as well as superimposed pneumonia * back on BIPAP this morning due to worsening shortness of breath. * sputum cultures pending. Urine for strep and legionella negative. Respiratory panel negative. * breathing treatment with bronchodilators. Titrate oxygen to maintain sats >90% * critical care on board. * 2D echo ordered showed EF of 40% with LV hypokinesis and stage I diastolic dysfunction and RVSP of 41mmHg. * cardiology consulted. Per cardiology he had a cardiac cath 2 years ago at [facility] and was told he had 2 blockages which were not amenable to revascularization. Records requested from [facility]. Further management as per cardiology. 04/06/2025: Breath sounds are improving and he is maintaining nasal cannula after dialysis #Elevated cardiac enzymes: * initial troponin was 58, and only peaked at 76. 2D echo as above. * Further records requested from [facility] as above * cardiology on board 04/06/2025: Raymond to be due to demand ischemia though he is in the setting of renalfailure. No further recommendations #MADONNA on CKD III with hyperkalemia * Cr trended up further to 4.63 today. Potassium is also elevated at 6.3 * lasix and lisinopril on hold. Potassium also held * Osborne catheter in situ. Patient given hyperkalemia protocol and also given Kayexalate. * Nephrology started patient on sodium bicarb this morning also. Patient counseled that if these measures do not help then he will need to start temporary dialysis. * will repeat BMP after kayexalate to monitor potassium 04/06/2025: Continue with dialysis, appreciate nephrology's assistance. He had a temporary dialysis catheter placed on 04/05/2025 #Leukocytosis: WBCs at 20 today, down from 22 yesterday. Likely due to IV steroid she is receiving. Will monitor.. Switch to PO prednisone. 04/06/2025: Will continue with empiric antibiotics, his leukocytosis continues to improve is down to 14 today #Type 2 diabetes mellitus: on lantus. ISS. Accuchecks ACHS #Hyperlipidemia: on ezetimibe #Nicotine dependence: counseled to quit. Nicotine patch prn. DVT: Heparin Charges/Coding Visit Charges Inpatient E&M: 93849 Subs Hosp L2 04/06/251824 <Electronically signed by Jose Moore MD> Cosigner Signature (if applicable): CC: ~ Signed [facility] Work Phone: 1(861) 555-341506-06-2025 Progress note [facility] Medical Records Department [address] [place] [address] Progress Note - Hospitalist 04/06/251817 MR#: [id number] Acct: [id number] Name: ENOC ARMANDO Rep #:[id number] : 1945 79 From: Jose lui MD PCP: Dr. Ryley Jeter MD Status:ADM IN Location: [place] [address] Subjective Subjective Doing well, no issues overnight currently resting comfortably after dialysis Objective Data Objective Data Vital Signs: Vital Signs Temp Pulse Resp BP Pulse Ox O2 Del Method O2 Flow Rate 97.7 F L 88 16 124/54 H 92 Nasal Cannula 2 04/06/25 16:30 04/06/25 16:30 04/06/25 16:30 04/06/25 16:30 04/06/25 16:30 04/06/25 16:30 04/06/25 16:30 FiO2 21 04/06/25 01:10 Oxygen Flow Rate (L/min) 2 Oxygen Delivery Method Nasal Cannula Weight: 139 lb 8.842 oz Body Mass Index (BMI) 21.8 Intake & Output: Intake and Output for Last 24 Hours 04/05/25 04/06/25 04/07/25 03:59 03:59 03:59 Intake Total 1328.73 / 1328.73 945 / 945 1900 / 1900 Output Total 500 / 500 700 / 700 1850 / 1850 Balance 828.73 / 828.73 245 / 245 50 / 50 Lab / Micro Data 04/06/25 06:24 04/06/25 08:40 Labs: Laboratory Results - last 24 hr 04/05/25 16:51: POC Glucose 165 H 04/05/25 21:35: POC Glucose 282 H 04/06/25 06:24: WBC 14.8 H, RBC 2.57 L, Hgb 7.9 L, Hct 23.6 L, MCV 91.8, MCH 30.7, MCHC 33.5, RDW Std Deviation 46.2 H, RDW Coeff of Humaira 13.8, Plt Count 222,MPV 11.9, Immature Gran % (Auto) 0.500, Neut % (Auto) 83.3 H, Lymph % (Auto) 9.1L, Ada % (Auto) 7.0, Eos % (Auto) 0.0, Baso % (Auto) 0.1, Absolute Neuts (auto)12.3 H, Absolute Lymphs (auto) 1.34, Nucleated RBC % 0 04/06/25 06:25: POC Glucose 281 H 04/06/25 08:40: Sodium 139, Potassium 4.2, Chloride 100, Carbon Dioxide 21.0, Anion Gap 18 H, BUN 103 H*, Creatinine 4.73 H, Estim Creat Clear Calc 11.24 L, Est GFR (MDRD) Non-Af 12 L, BUN/CreatinineRatio 21.8 H, Glucose 233 H, Calcium 8.3, Phosphorus 7.1 H, Magnesium 2.8 H 04/06/25 11:39: POC Glucose 225 H 04/06/25 16:09: POC Glucose 269 H Micro: Microbiology 04/03/25 02:25 Blood Culture (Wb) - Anticubital Left Blood Culture - Preliminary No growth in 48 hours. 04/03/25 03:50 Blood Culture (Wb) - Anticubital Left Blood Culture - Preliminary No growth in 48 hours. 04/03/25 05:51 Urine, Clean Catch Urine Culture - Final Culture exhibits no growth. 04/03/25 05:46 Wound - Elbow Skin and Soft Tissue MRSA/MSSA (PCR - Final 04/03/25 05:10 Mucosa - Nasopharyngeal Respiratory Panel (PCR) - Final 04/03/25 05:51 Urine, Clean Catch Legionella Antigen - Final 04/03/25 05:51 Urine Catheter - Catheter Streptococcus pneumoniae Antigen (M- Final 04/03/25 00:25 Mucosa - Nose SARS-CoV-2, Influenza & RSV (PCR) - Final Radiography Diagnostic Testing: Radiology Impression Chest X-Ray 04/05/25 18:02 IMPRESSION: Interval insertion of right IJ line with tip at SVC, likely in appropriate position. Lung findings are grossly unchanged. Reading Location: [facility] Rhythm Strip Rhythm Strip: Sinus Rhythm Rate: 86 Physical Exam Narrative General: Alert, Oriented x3, Cooperative, No apparent distress HEENT: Atraumatic, PERRLA, EOMI, Normocephalic Oral: Moist Mucosa Neck: Supple, No JVD, right temporary dialysis catheter Lungs: Diminished, Normal air movement, No rhonchi, No wheeze, No rales Cardiovascular: Regular rate, Regular Rhythm, Normal S1, Normal S2, No murmurs Abdomen: Soft, Non Tender, Non-Distended, No Hepato-splenomegaly Extremities: No edema, Capillary Refill Less than 3 Seconds Skin: Lower extremities are wrapped Musculoskeletal: No Tenderness to Palpation of Joints or Extremities Neurological: No focal neurological deficits, moves all extremities Psych/Mental Status: Normal Affect, Appropriate Assessment & Plan Assessment/Plan (1) Acute hypoxic respiratory failure: PLAN: Plan #Acute hypoxic respiratory failure due to acute on chronic COPD examination and probable heart failure as well as superimposed pneumonia * back on BIPAP this morning due to worsening shortness of breath. * sputum cultures pending. Urine for strep and legionella negative. Respiratory panel negative. * breathing treatment with bronchodilators. Titrate oxygen to maintain sats >90% * critical care on board. * 2D echo ordered showed EF of 40% with LV hypokinesis and stage I diastolic dysfunction and RVSP of 41mmHg. * cardiology consulted. Per cardiology he had a cardiac cath 2 years ago at [facility] and was told he had 2 blockages which were not amenable to revascularization. Records requested from [facility]. Further management as per cardiology. 04/06/2025: Breath sounds are improving and he is maintaining nasal cannula after dialysis #Elevated cardiac enzymes: * initial troponin was 58, and only peaked at 76. 2D echo as above. * Further records requested from [facility] as above * cardiology on board 04/06/2025: Raymond to be due to demand ischemia though he is in the setting of renalfailure. No furtherrecommendations #MADONNA on CKD III with hyperkalemia * Cr trended up further to 4.63 today. Potassium is also elevated at 6.3 * lasix and lisinopril on hold. Potassium also held * Osborne catheter in situ. Patient given hyperkalemia protocol and also given Kayexalate. * Nephrology started patient on sodium bicarb this morning also. Patient counseled that if these measures do not help then he will need to start temporary dialysis. * will repeat BMP after kayexalate to monitor potassium 04/06/2025: Continue with dialysis, appreciate nephrology's assistance. He had a temporary dialysis catheter placed on 04/05/2025 #Leukocytosis: WBCs at 20 today, down from 22 yesterday. Likely due to IV steroid she is receiving.Will monitor.. Switch to PO prednisone. 04/06/2025: Will continue with empiric antibiotics, his leukocytosis continues to improve is down to 14 today #Type 2 diabetes mellitus: on lantus. ISS. Accuchecks ACHS #Hyperlipidemia: on ezetimibe #Nicotine dependence: counseled to quit. Nicotine patch prn. DVT: Heparin Charges/Coding Visit Charges Inpatient E&M: 93771 Subs Hosp L2 04/06/25 1825 Cosigner Signature (if applicable): CC: ~ Signed [facility]06-06-2025 Progress note Author Kalani Gonzalez [facility] Note Date/Time April 06, 2025 4:18p m [facility] Medical Records Department [address] [place] [address] Progress Note - Nephrology 04/06/25 1117 MR#: [id number] Acct: [id number] Name: ENOC ARMANDO Rep #:[id number] : 1945 79 From: Kalani JEFFERS PCP: Dr. Ryley Jeter MD Status:ADM IN Location: [place] [address] Documented by User: AURY Davison 04/06/25 11:24 Subjective Subjective Patient had temporary hemodialysis catheter placed. Patient seen on dialysis today. and family at bedside. No complaints. Objective Data Objective Data Vital Signs: Vital Signs Temp Pulse Resp BP Pulse Ox O2 Del Method O2 Flow Rate 97.6 F L 86 15 125/74 H 95 Nasal Cannula 2 04/06/25 10:30 04/06/25 11:00 04/06/25 11:00 04/06/25 11:00 04/06/25 11:00 04/06/25 11:00 04/06/25 11:00 FiO2 21 04/06/25 01:10 Oxygen Flow Rate (L/min) 2 Oxygen Delivery Method Nasal Cannula Weight: 64.9 kg Body Mass Index (BMI) 22.4 Intake & Output: Intake and Output for Last 24 Hours 04/04/25 04/05/25 04/06/25 23:59 23:59 23:59 Intake Total 1341.85 / 1341.85 885 / 885 1460 / 1460 Output Total 100 / 100 900 / 900 300 / 300 Balance 1241.85 / 1241.85 -15 / -15 1160 / 1160 Lab / Micro Data 04/06/25 06:24 04/06/25 08:40 Labs: Laboratory Results - last 24 hr 04/05/25 07:39: POC Glucose 263 H 04/05/25 11:05: POC Glucose 239 H 04/05/25 13:14: Urine Color Yellow, Urine Clarity Sl. Cloudy, Urine pH 5.0, Ur Specific Tarrs 1.020, Urine Protein 100 H, Urine Glucose (UA) Normal, Urine Ketones Negative, Urine Occult Blood 250 H, Urine Nitrite Negative, Urine Bilirubin 1 H, Urine Urobilinogen Normal, Ur Leukocyte Esterase 500 H, Urine RBC> 100 SEEN, Urine WBC 5-10 SEEN, Ur Squamous Epith Cells 0 SEEN, Urine Bacteria 0 SEEN, Urine Mucus 0 SEEN 04/05/25 13:17: POC Glucose 226 H 04/05/25 13:44: Sodium 137, Potassium 5.7 H, Chloride 102, Carbon Dioxide 15.6 L, Anion Gap 19 H, BUN 99 H, Creatinine 4.77 H, Estim Creat Clear Calc 10.67 L, Est GFR (MDRD) Non-Af 12 L, BUN/Creatinine Ratio 20.8 H, Glucose 205 H, Calcium 8.9 04/05/25 16:51: POC Glucose 165 H 04/05/25 21:35: POC Glucose 282 H 04/06/25 06:24: WBC 14.8 H, RBC 2.57 L, Hgb 7.9 L, Hct 23.6 L, MCV 91.8, MCH 30.7, MCHC 33.5, RDW Std Deviation 46.2 H, RDW Coeff of Humaira 13.8, Plt Count 222,MPV 11.9, Immature Gran % (Auto) 0.500, Neut % (Auto) 83.3 H, Lymph % (Auto) 9.1L, Ada % (Auto) 7.0, Eos % (Auto) 0.0, Baso % (Auto) 0.1, Absolute Neuts (auto)12.3 H, Absolute Lymphs (auto) 1.34, Nucleated RBC % 0 04/06/25 06:25: POC Glucose 281 H 04/06/25 08:40: Sodium 139, Potassium 4.2, Chloride 100, Carbon Dioxide 21.0, Anion Gap 18 H, BUN 103 H*, Creatinine 4.73 H, Estim Creat Clear Calc 11.24 L, Est GFR (MDRD) Non-Af 12 L, BUN/Creatinine Ratio 21.8 H, Glucose 233 H, Calcium 8.3 Micro: Microbiology 04/03/25 02:25 Blood Culture (Wb) - Anticubital Left Blood Culture - Preliminary No growth in 48 hours. 04/03/25 03:50 Blood Culture (Wb) - Anticubital Left Blood Culture - Preliminary No growth in 48 hours. 04/03/25 05:51 Urine, Clean Catch Urine Culture - Final Culture exhibits no growth. 04/03/25 05:46 Wound - Elbow Skin and Soft Tissue MRSA/MSSA (PCR - Final 04/03/25 05:10 Mucosa - Nasopharyngeal Respiratory Panel (PCR) - Final 04/03/25 05:51 Urine, Clean Catch Legionella Antigen - Final 04/03/25 05:51 Urine Catheter - Catheter Streptococcus pneumoniae Antigen (M- Final 04/03/25 00:25 Mucosa - Nose SARS-CoV-2, Influenza & RSV (PCR) - Final Radiography Diagnostic Testing: Radiology Impression Chest X-Ray 04/05/25 18:02 IMPRESSION: Interval insertion of right IJ line with tip at SVC, likely in appropriate position. Lung findings are grossly unchanged. Reading Location: [facility] Rhythm Strip Rhythm Strip: Sinus Rhythm Rate: 86 Physical Exam Narrative Alert and oriented x 3, no apparent distress S1, S2, RRR Diminished breath sounds. On O2 nasal cannula Abdomen soft, nontender, nondistended No edema No-ntunneled temporary right IJ hemodialysis catheter accessed for dialysis Assessment & Plan Assessment/Plan (1) MADONNA (acute kidney injury): (2) CKD (chronic kidney disease), stage III: QUALIFIERS: Chronic kidney disease stage 3 subtype: stage 3b (GFR 30-44) Qualified Code(s): N18.32 - Chronic kidney disease, stage 3b (3) Acute hypoxic respiratory failure: PLAN: Plan This is an 79-year-old male with past medical history significant for hypertension, CKD stage III (followed by Dr. Albert in [place]), COPD, diabetes mellitus admitted to the hospital for acute hypoxic respiratory failure, multifactorial from COPD and/or pneumonia and/or possible heart failure contributing. Nephrology consulted in view of elevated creatinine. Baseline creatinine is around 1.8 mg/dL range. Creatinine was 1.8 on admission received contrast on admit Renal US no hydronephrosis UA showed leukocyte esterase, RBC, 100 protein - presumably MADONNA due to contrast nephropathy vs ATN. due to lack of urine output and worsening renal failure patient needs temporary dialysis. Creatinine4.7, BUN 103. Non-tunneled HD catheter placed. Patient undergoing hemodialysistoday over 2.5 hours and attempting around 1 L fluid removal. Will plan for dialysis tomorrow over 3 hours and attempt fluid removal as patient/blood pressure tolerates. Continue to monitor for renal recovery. Stop bicarb drip. Discussed nephrology plan with patient and his . Questions answered. Assessment and plan reviewed with Dr. Thompson. Documented by User: Dr. Denisha Thompson MD 04/06/25 16:18 Objective Data Lab / Micro Data 04/06/25 06:24 04/06/25 08:40 Assessment & Plan Assessment/Plan (1) MADONNA (acute kidney injury): (2) CKD (chronic kidney disease), stage III: QUALIFIERS: Chronic kidney disease stage 3 subtype: stage 3b (GFR 30-44) Qualified Code(s): N18.32 - Chronic kidney disease, stage 3b (3) Acute hypoxic respiratory failure: PLAN: Plan This is an 79-year-old male with past medical history significant for hypertension, CKD stage III (followed by Dr. Albert in [place]), COPD, diabetes mellitus admitted to the hospital for acute hypoxic respiratory failure, multifactorial from COPD and/or pneumonia and/or possible heart failure contributing. Nephrology consulted in view of elevated creatinine. Baseline creatinine is around 1.8 mg/dL range. Creatinine was 1.8 on admission received contrast on admit Renal US no hydronephrosis UA showed leukocyte esterase, RBC, 100 protein - presumably MADONNA due to contrast nephropathy vs ATN. due to lack of urine output and worsening renal failure patient needs temporary dialysis. Creatinine4.7, BUN 103. Non-tunneled HD catheter placed. Patient undergoing hemodialysistoday over 2.5 hours and attempting around 1 L fluid removal. Will plan for dialysis tomorrow over 3 hours and attempt fluid removal as patient/blood pressure tolerates. Continue to monitor for renal recovery. Stop bicarb drip. Discussed nephrology plan with patient and his . Questions answered. Assessment and plan reviewed with Dr. Thompson. jr [employer]. BAKARI is typically short lived. hopefully will recover soon. HD today. will reevaluate tomorrow 04/06/25 1124 <Electronically signed by Kalani JEFFERS> Cosigner Signature (if applicable): 04/06/25 1618 <Electronically signed by Denisha Thompson MD> CC: ~ Signed [facility] Work Phone: 1(232) 564-129506-06-2025 Progress note [facility] Medical Records Department [address] [place] [address] Progress Note - Nephrology 04/06/25 1117 MR#: [id number] Acct: [id number] Name: ENOC ARMANDO Rep #:[id number] : 1945 79 From: Kalani JEFFERS PCP: Dr. Ryley Jeter MD Status:ADM IN Location: [place] [address] Documented by User: AURY Davison 04/06/25 11:24 Subjective Subjective Patient had temporary hemodialysis catheter placed. Patient seen on dialysis today. and familyat bedside. No complaints. Objective Data Objective Data Vital Signs: Vital Signs Temp Pulse Resp BP Pulse Ox O2 Del Method O2 Flow Rate 97.6 F L 86 15 125/74 H 95 Nasal Cannula 2 04/06/25 10:30 04/06/25 11:00 04/06/25 11:00 04/06/25 11:00 04/06/25 11:00 04/06/25 11:00 04/06/25 11:00 FiO2 21 04/06/25 01:10 Oxygen Flow Rate (L/min) 2 Oxygen Delivery Method Nasal Cannula Weight: 64.9 kg Body Mass Index (BMI) 22.4 Intake & Output: Intake and Output for Last 24 Hours 04/04/25 04/05/25 04/06/25 23:59 23:59 23:59 Intake Total 1341.85 / 1341.85 885 / 885 1460 / 1460 Output Total 100 / 100 900 / 900 300 / 300 Balance 1241.85 / 1241.85 -15 / -15 1160 / 1160 Lab / Micro Data 04/06/25 06:24 04/06/25 08:40 Labs: Laboratory Results - last 24 hr 04/05/25 07:39: POC Glucose 263 H 04/05/25 11:05: POC Glucose 239 H 04/05/25 13:14: Urine Color Yellow, Urine Clarity Sl. Cloudy, Urine pH 5.0, Ur Specific Tarrs 1.020, Urine Protein 100 H, Urine Glucose (UA) Normal, Urine Ketones Negative, Urine Occult Blood 250 H, Urine Nitrite Negative, Urine Bilirubin 1 H, Urine Urobilinogen Normal, Ur Leukocyte Esterase 500 H, Urine RBC> 100 SEEN, Urine WBC 5-10 SEEN, Ur Squamous Epith Cells 0 SEEN, Urine Bacteria 0 SEEN, Urine Mucus 0 SEEN 04/05/25 13:17: POC Glucose 226 H 04/05/25 13:44: Sodium 137, Potassium 5.7 H, Chloride 102, Carbon Dioxide 15.6 L, Anion Gap 19 H, BUN 99 H, Creatinine 4.77 H, Estim Creat Clear Calc 10.67 L, Est GFR (MDRD) Non-Af 12 L, BUN/Creatinine Ratio 20.8 H, Glucose 205 H, Calcium 8.9 04/05/25 16:51: POC Glucose 165 H 04/05/25 21:35: POC Glucose 282 H 04/06/25 06:24: WBC 14.8 H, RBC 2.57 L, Hgb 7.9 L, Hct 23.6 L, MCV 91.8, MCH 30.7, MCHC 33.5, RDW Std Deviation 46.2 H, RDW Coeff of Humaira 13.8, Plt Count 222,MPV 11.9, Immature Gran % (Auto) 0.500, Neut % (Auto) 83.3 H, Lymph % (Auto) 9.1L, Ada % (Auto) 7.0, Eos % (Auto) 0.0, Baso % (Auto) 0.1, Absolute Neuts (auto)12.3 H, Absolute Lymphs (auto) 1.34, Nucleated RBC % 0 04/06/25 06:25: POC Glucose 281 H 04/06/25 08:40: Sodium 139, Potassium 4.2, Chloride 100, Carbon Dioxide 21.0, Anion Gap 18 H, BUN 103 H*, Creatinine 4.73 H, Estim Creat Clear Calc 11.24 L, Est GFR (MDRD) Non-Af 12 L, BUN/CreatinineRatio 21.8 H, Glucose 233 H, Calcium 8.3 Micro: Microbiology 04/03/25 02:25 Blood Culture (Wb) - Anticubital Left Blood Culture - Preliminary No growth in 48 hours. 04/03/25 03:50 Blood Culture (Wb) - Anticubital Left Blood Culture - Preliminary No growth in 48 hours. 04/03/25 05:51 Urine, Clean Catch Urine Culture - Final Culture exhibits no growth. 04/03/25 05:46 Wound - Elbow Skin and Soft Tissue MRSA/MSSA (PCR - Final 04/03/25 05:10 Mucosa - Nasopharyngeal Respiratory Panel (PCR) - Final 04/03/25 05:51 Urine, Clean Catch Legionella Antigen - Final 04/03/25 05:51 Urine Catheter - Catheter Streptococcus pneumoniae Antigen (M- Final 04/03/25 00:25 Mucosa - Nose SARS-CoV-2, Influenza & RSV (PCR) - Final Radiography Diagnostic Testing: Radiology Impression Chest X-Ray 04/05/25 18:02 IMPRESSION: Interval insertion of right IJ line with tip at SVC, likely in appropriate position. Lung findings are grossly unchanged. Reading Location: [facility] Rhythm Strip Rhythm Strip: Sinus Rhythm Rate: 86 Physical Exam Narrative Alert and oriented x 3, no apparent distress S1, S2, RRR Diminished breath sounds. On O2 nasal cannula Abdomen soft, nontender, nondistended No edema No-ntunneled temporary right IJ hemodialysis catheter accessed for dialysis Assessment & Plan Assessment/Plan (1) MADONNA (acute kidney injury): (2) CKD (chronic kidney disease), stage III: QUALIFIERS: Chronic kidney disease stage 3 subtype: stage 3b (GFR 30-44) Qualified Code(s): N18.32 - Chronic kidney disease, stage 3b (3) Acute hypoxic respiratory failure: PLAN: Plan This is an 79-year-old male with past medical history significant for hypertension, CKD stage III (followed by Dr. Albert in [place]), COPD, diabetes mellitus admitted to the hospital for acute hypoxic respiratory failure, multifactorial from COPD and/or pneumonia and/or possible heart failure contri buting. Nephrology consulted in view of elevated creatinine. Baseline creatinine is around 1.8 mg/dL range. Creatinine was 1.8 on admission received contrast on admit Renal US no hydronephrosis UA showed leukocyte esterase, RBC, 100 protein - presumably MADONNA due to contrast nephropathy vs ATN. due to lack of urine output and worsening renal failure patient needs temporary dialysis. Creatinine4.7, BUN 103. Non-tunneled HD catheter placed.Patient undergoing hemodialysistoday over 2.5 hours and attempting around 1 L fluid removal. Will plan for dialysis tomorrow over 3 hours and attempt fluid removal as patient/blood pressure tolerates. Continue to monitor for renal recovery. Stop bicarb drip. Discussed nephrology plan with patient and his . Questions answered. Assessment and plan reviewed with Dr. Thompson. Documented by User: Dr. Denisha Thompson MD 04/06/25 16:18 Objective Data Lab / Micro Data 04/06/25 06:24 04/06/25 08:40 Assessment & Plan Assessment/Plan (1) MADONNA (acute kidney injury): (2) CKD (chronic kidney disease), stage III: QUALIFIERS: Chronic kidney disease stage 3 subtype: stage 3b (GFR 30-44) Qualified Code(s): N18.32 - Chronic kidney disease, stage 3b (3) Acute hypoxic respiratory failure: PLAN: Plan This is an 79-year-old male with past medical history significant for hypertension, CKD stage III (followed by Dr. Albert in [place]), COPD, diabetes mellitus admitted to the hospital for acute hypoxic respiratory failure, multifactorial from COPD and/or pneumonia and/or possible heart failure contri buting. Nephrology consulted in view of elevated creatinine. Baseline creatinine is around 1.8 mg/dL range. Creatinine was 1.8 on admission received contrast on admit Renal US no hydronephrosis UA showed leukocyte esterase, RBC, 100 protein - presumably MADONNA due to contrast nephropathy vs ATN. due to lack of urine output and worsening renal failure patient needs temporary dialysis. Creatinine4.7, BUN 103. Non-tunneled HD catheter placed.Patient undergoing hemodialysistoday over 2.5 hours and attempting around 1 L fluid removal. Will plan for dialysis tomorrow over 3 hours and attempt fluid removal as patient/blood pressure tolerates. Continue to monitor for renal recovery. Stop bicarb drip. Discussed nephrology plan with patient and his . Questions answered. Assessment and plan reviewed with Dr. Thompson. dw [employer]. BAKARI is typically short lived. hopefully will recover soon. HD today. will reevaluate tomorrow 04/06/25 1124 Cosigner Signature (if applicable): 04/06/25 1618 CC: ~ Signed [facility]06-06-2025 Progress note Author Smooth Luis [facility] Note Date/Time April 06, 2025 11:24 am [facility] Medical Records Department [address] [place] [address] Progress Note - Surgery 04/06/25 1123 MR#: [id number] Acct: [id number] Name: ENOC ARMANDO Rep #:[id number] : 1945 79 From: Smooth Luis MD PCP: Dr. Ryley Jeter MD Status:ADM IN Location: [place] [address] Subjective Subjective Patient seen on rounds this morning. Dialysis catheter is currently being used without any issues per dialysis nurse. He has no new complaints Objective Data Objective Data Vital Signs: Vital Signs Temp Pulse Resp BP Pulse Ox O2 Del Method O2 Flow Rate 97.6 F L 86 15 132/74 H 95 Nasal Cannula 2 04/06/25 10:30 04/06/25 11:15 04/06/25 11:15 04/06/25 11:15 04/06/25 11:15 04/06/25 11:15 04/06/25 11:15 FiO2 21 04/06/25 01:10 Oxygen Flow Rate (L/min) 2 Oxygen Delivery Method Nasal Cannula Weight: 143 lb 1.28 oz Body Mass Index (BMI) 22.4 Intake & Output: Intake and Output for Last 24 Hours 04/04/25 04/05/25 04/06/25 23:59 23:59 23:59 Intake Total 1341.85 / 1341.85 885 / 885 1460 / 1460 Output Total 100 / 100 900 / 900 300 / 300 Balance 1241.85 / 1241.85 -15 / -15 1160 / 1160 Lab / Micro Data 04/06/25 06:24 04/06/25 08:40 Labs: Laboratory Results - last 24 hr 04/05/25 07:39: POC Glucose 263 H 04/05/25 11:05: POC Glucose 239 H 04/05/25 13:14: Urine Color Yellow, Urine Clarity Sl. Cloudy, Urine pH 5.0, Ur Specific Tarrs 1.020, Urine Protein 100 H, Urine Glucose (UA) Normal, Urine Ketones Negative, Urine Occult Blood 250 H, Urine Nitrite Negative, Urine Bilirubin 1 H, Urine Urobilinogen Normal, Ur Leukocyte Esterase 500 H, Urine RBC> 100 SEEN, Urine WBC 5-10 SEEN, Ur Squamous Epith Cells 0 SEEN, Urine Bacteria 0 SEEN, Urine Mucus 0 SEEN 04/05/25 13:17: POC Glucose 226 H 04/05/25 13:44: Sodium 137, Potassium 5.7 H, Chloride 102, Carbon Dioxide 15.6 L, Anion Gap 19 H, BUN 99 H, Creatinine 4.77 H, Estim Creat Clear Calc 10.67 L, Est GFR (MDRD) Non-Af 12 L, BUN/Creatinine Ratio 20.8 H, Glucose 205 H, Calcium 8.9 04/05/25 16:51: POC Glucose 165 H 04/05/25 21:35: POC Glucose 282 H 04/06/25 06:24: WBC 14.8 H, RBC 2.57 L, Hgb 7.9 L, Hct 23.6 L, MCV 91.8, MCH 30.7, MCHC 33.5, RDW Std Deviation 46.2 H, RDW Coeff of Humaira 13.8, Plt Count 222,MPV 11.9, Immature Gran % (Auto) 0.500, Neut % (Auto) 83.3 H, Lymph % (Auto) 9.1L, Ada % (Auto) 7.0, Eos % (Auto) 0.0, Baso % (Auto) 0.1, Absolute Neuts (auto)12.3 H, Absolute Lymphs (auto) 1.34, Nucleated RBC % 0 04/06/25 06:25: POC Glucose 281 H 04/06/25 08:40: Sodium 139, Potassium 4.2, Chloride 100, Carbon Dioxide 21.0, Anion Gap 18 H, BUN 103 H*, Creatinine 4.73 H, Estim Creat Clear Calc 11.24 L, Est GFR (MDRD) Non-Af 12 L, BUN/Creatinine Ratio 21.8 H, Glucose 233 H, Calcium 8.3 Micro: Microbiology 04/03/25 02:25 Blood Culture (Wb) - Anticubital Left Blood Culture - Preliminary No growth in 48 hours. 04/03/25 03:50 Blood Culture (Wb) - Anticubital Left Blood Culture - Preliminary No growth in 48 hours. 04/03/25 05:51 Urine, Clean Catch Urine Culture - Final Culture exhibits no growth. 04/03/25 05:46 Wound - Elbow Skin and Soft Tissue MRSA/MSSA (PCR - Final 04/03/25 05:10 Mucosa - Nasopharyngeal Respiratory Panel (PCR) - Final 04/03/25 05:51 Urine, Clean Catch Legionella Antigen - Final 04/03/25 05:51 Urine Catheter - Catheter Streptococcus pneumoniae Antigen (M- Final 04/03/25 00:25 Mucosa - Nose SARS-CoV-2, Influenza & RSV (PCR) - Final Radiography Diagnostic Testing: Radiology Impression Chest X-Ray 04/05/25 18:02 IMPRESSION: Interval insertion of right IJ line with tip at SVC, likely in appropriate position. Lung findings are grossly unchanged. Reading Location: [facility] Rhythm Strip Rhythm Strip: Sinus Rhythm Rate: 86 Physical Exam Narrative He is alert and oriented x 3. No acute distress. Right IJ catheter in place. Patient currently hooked up to dialysis machine. No bleeding or evidence of infection Assessment & Plan Assessment/Plan (1) MADONNA (acute kidney injury): PLAN: Plan The patient is an 79-year-old male with acute kidney injury. Temporary dialysiscatheter was placed last evening. This seems to be working fine. Continue dialysis per nephrology. No surgical plans. Will sign off 04/06/25 1124 <Electronically signed by Smooth Luis MD> Cosigner Signature (if applicable): CC: ~ Signed [facility] Work Phone: [phone]) [phone] Progress note Author Landry Fagan [facility] Note Date/Time April 06, 2025 9:42a m [facility] Medical Records Department [address] [place] [address] Progress Note - Foil Stamp Operator 04/06/25 0938 MR#: [id number] Acct: [id number] Name: ENOC ARMANDO Rep #:[id number] : 1945 79 From: Landry Fagan PCP: Dr. Ryley Jeter MD Status:ADM IN Location: [place] [address] Assessment & Plan Assessment/Plan (1) Acute hypoxic respiratory failure: PLAN: Plan RECOMMENDATIONS: 1. Continue supplemental oxygen to maintain saturations at or above 90%. 2. Empiric BiPAP therapy with naps and nightly. 3. Continue empiric antimicrobials, bronchodilators and steroids. 4. The patient will undoubtedly need to follow-up in the pulmonary medicine clinic so that baseline PFTs can be obtained. 5. Smoking cessation is advisable. 6. Dialysis support per nephrology recommendations. IMPRESSIONS: 1. Acute hypoxemic respiratory failure Clinical concern for multifactorial etiology with possible COPD exacerbation along with possible CHF contributing. The patient has an extensive tobacco abuse history, but has never been formally diagnosed with COPD. He does have evidence of bilateral pleural effusions along with questionable airspace disease, concerning for pneumonia. Accordingly, the patient will be continued on scheduled bronchodilators, antimicrobials and prednisone. Will defer additional medical optimization to cardiology, who is following. Ideally, the patient will need outpatient follow- up in the pulmonary medicine office after discharge so that baseline PFTs can be obtained. 2. Chronic tobacco dependency Tobacco cessation is strongly advised. Recommend outpatient pulmonary follow- upand PFTs. 3. Elevated troponin likely secondary to demand ischemia in the setting of #1 Continue current supportive care per cardiology recommendations. 4. Acute on chronic kidney disease Clinical concern for contrast nephropathy versus ATN. Nephrology is following to assist with hemodialysis needs. 5. History of diabetes mellitus/hypertension/hyperlipidemia/chronic kidney disease/BPH Complicates care, management, recovery and prognosis. Continue home medicationsas indicated. CODE STATUS: DNR CCA without intubation This note was generated with [employer] dictation software. It may contain incorrectwords, spelling, and punctuation that were not noted in checking the note beforesigning. Subjective Subjective The patient was seen and examined at the bedside this morning. Events from the last 24 hours have been reviewed. The patient is currently afebrile, hemodynamically stable and maintaining appropriate oxygen saturations on 2 L/minvia nasal cannula. The patient has no specific complaints this morning. He is documented to be overall net +2.6 L for the hospitalization. White blood cell count was noted to be 15,000 with a hemoglobin of 8.0 g/dL. BUN is elevated at 103 with a creatinine of 4.73. The patient had a temporary hemodialysis catheter placed yesterday to facilitate the initiation of HD. Objective Data Objective Data The patient's most recent lab work, culture data and imaging studies have all been personally reviewed. Surface echocardiogram demonstrated an ejection fraction of 40% with stage I diastolic dysfunction and severe mitral annular calcification. Right ventricular systolic pressure was estimated to be 41 mmHg. Strep and urine Legionella antigens were negative. Respiratory viral panel wasnegative. Blood and urine cultures have not demonstrated any growth to date. Vital Signs: Vital Signs Temp Pulse Resp BP Pulse Ox O2 Del Method O2 Flow Rate 97.6 F L 91 14 103/55 L 93 Nasal Cannula 2 04/06/25 08:38 04/06/25 08:38 04/06/25 08:38 04/06/25 08:38 04/06/25 08:38 04/06/25 08:38 04/06/25 08:38 FiO2 21 04/06/25 01:10 Oxygen Flow Rate (L/min) 2 Oxygen Delivery Method Nasal Cannula Weight: 143 lb 1.28 oz Body Mass Index (BMI) 22.4 Intake & Output: Intake and Output for Last 24 Hours 04/04/25 04/05/25 04/06/25 23:59 23:59 23:59 Intake Total 1341.85 / 1341.85 885 / 885 1210 / 1210 Output Total 100 / 100 900 / 900 200 / 200 Balance 1241.85 / 1241.85 -15 / -15 1010 / 1010 Lab / Micro Data Attestation: I reviewed the patient's lab results. 04/06/25 06:24 04/06/25 08:40 Labs: Laboratory Results - last 24 hr 04/05/25 07:39: POC Glucose 263 H 04/05/25 09:06: Sodium 136, Potassium 6.3 H*, Chloride 102, Carbon Dioxide 15.8 L, Anion Gap 18 H, BUN 96 H, Creatinine 4.68 H, Estim Creat Clear Calc 10.87 L, Est GFR (MDRD) Non-Af 12 L, BUN/Creatinine Ratio 20.5 H, Glucose 223 H, Calcium 8.1 04/05/25 11:05: POC Glucose 239 H 04/05/25 13:14: Urine Color Yellow, Urine Clarity Sl. Cloudy, Urine pH 5.0, Ur Specific Tarrs 1.020, Urine Protein 100 H, Urine Glucose (UA) Normal, Urine Ketones Negative, Urine Occult Blood 250 H, Urine Nitrite Negative, Urine Bilirubin 1 H, Urine Urobilinogen Normal, Ur Leukocyte Esterase 500 H, Urine RBC> 100 SEEN, Urine WBC 5-10 SEEN, Ur Squamous Epith Cells 0 SEEN, Urine Bacteria 0 SEEN, Urine Mucus 0 SEEN 04/05/25 13:17: POC Glucose 226 H 04/05/25 13:44: Sodium 137, Potassium 5.7 H, Chloride 102, Carbon Dioxide 15.6 L, Anion Gap 19 H, BUN 99 H, Creatinine 4.77 H, Estim Creat Clear Calc 10.67 L, Est GFR (MDRD) Non-Af 12 L, BUN/Creatinine Ratio 20.8 H, Glucose 205 H, Calcium 8.9 04/05/25 16:51: POC Glucose 165 H 04/05/25 21:35: POC Glucose 282 H 04/06/25 06:24: WBC 14.8 H, RBC 2.57 L, Hgb 7.9 L, Hct 23.6 L, MCV 91.8, MCH 30.7, MCHC 33.5, RDW Std Deviation 46.2 H, RDW Coeff of Humaira 13.8, Plt Count 222,MPV 11.9, Immature Gran % (Auto) 0.500, Neut % (Auto) 83.3 H, Lymph % (Auto) 9.1L, Ada % (Auto) 7.0, Eos % (Auto) 0.0, Baso % (Auto) 0.1, Absolute Neuts (auto)12.3 H, Absolute Lymphs (auto) 1.34, Nucleated RBC % 0 04/06/25 06:25: POC Glucose 281 H 04/06/25 08:40: Sodium 139, Potassium 4.2, Chloride 100, Carbon Dioxide 21.0, Anion Gap 18 H, BUN 103 H*, Creatinine 4.73 H, Estim Creat Clear Calc 11.24 L, Est GFR (MDRD) Non-Af 12 L, BUN/Creatinine Ratio 21.8 H, Glucose 233 H, Calcium 8.3 Micro: Microbiology 04/03/25 02:25 Blood Culture (Wb) - Anticubital Left Blood Culture - Preliminary No growth in 48 hours. 04/03/25 03:50 Blood Culture (Wb) - Anticubital Left Blood Culture - Preliminary No growth in 48 hours. 04/03/25 05:51 Urine, Clean Catch Urine Culture - Final Culture exhibits no growth. 04/03/25 05:46 Wound - Elbow Skin and Soft Tissue MRSA/MSSA (PCR - Final 04/03/25 05:10 Mucosa - Nasopharyngeal Respiratory Panel (PCR) - Final 04/03/25 05:51 Urine, Clean Catch Legionella Antigen - Final 04/03/25 05:51 Urine Catheter - Catheter Streptococcus pneumoniae Antigen (M- Final 04/03/25 00:25 Mucosa - Nose SARS-CoV-2, Influenza & RSV (PCR) - Final Radiography Diagnostic Testing: Radiology Impression Chest X-Ray 04/05/25 18:02 IMPRESSION: Interval insertion of right IJ line with tip at SVC, likely in appropriate position. Lung findings are grossly unchanged. Reading Location: [facility] Rhythm Strip Rhythm Strip: Sinus Rhythm Rate: 86 Physical Exam Const alert, oriented x3 and no apparent distress HEENT normocephalic, head/scalp atraumatic and moist oral mucous membranes Eyes PERRL, EOMs intact bilaterally and conjunctivae normal Neck supple General: trachea midline and CVC in place Chest inspection of chest normal Resp normal respiratory effort and no use of accessory muscles Auscultation: rales and diminished lung sounds Cardio regular rate, S1 normal heart sound and S2 normal heart sound GI normal to inspection, nondistended, normoactive bowel sounds Extremity no clubbing, cyanosis or edema Skin Skin Narrative: Wrapped lower extremities. Neuro CN's II-XII intact bilaterally, moves all extremities and no focal motor deficits Psych cooperative and affect normal Charges/Coding Visit Charges Inpatient E&M: 44267 Subs Hosp L2 04/06/25 0942 <Electronically signed by Landry Fagan DO> Cosigner Signature (if applicable): CC: ~ Signed [facility] Work Phone: 1(144) 159-741606-06-2025 Progress note [facility] Medical Records Department [address] [place] [address] Progress Note - Surgery 04/06/25 1123 MR#: [id number] Acct: [id number] Name: ENOC ARMANDO Rep #:[id number] : 1945 79 From: Smooth Luis MD PCP: Dr. Ryley Jeter MD Status:ADM IN Location: [place] [address] Subjective Subjective Patient seen on rounds this morning. Dialysis catheter is currently being used without any issues per dialysis nurse. He has no new complaints Objective Data Objective Data Vital Signs: Vital Signs Temp Pulse Resp BP Pulse Ox O2 Del Method O2 Flow Rate 97.6 F L 86 15 132/74 H 95 Nasal Cannula 2 04/06/25 10:30 04/06/25 11:15 04/06/25 11:15 04/06/25 11:15 04/06/25 11:15 04/06/25 11:15 04/06/25 11:15 FiO2 21 04/06/25 01:10 Oxygen Flow Rate (L/min) 2 Oxygen Delivery Method Nasal Cannula Weight: 143 lb 1.28 oz Body Mass Index (BMI) 22.4 Intake & Output: Intake and Output for Last 24 Hours 04/04/25 04/05/25 04/06/25 23:59 23:59 23:59 Intake Total 1341.85 / 1341.85 885 / 885 1460 / 1460 Output Total 100 / 100 900 / 900 300 / 300 Balance 1241.85 / 1241.85 -15 / -15 1160 / 1160 Lab / Micro Data 04/06/25 06:24 04/06/25 08:40 Labs: Laboratory Results - last 24 hr 04/05/25 07:39: POC Glucose 263 H 04/05/25 11:05: POC Glucose 239 H 04/05/25 13:14: Urine Color Yellow, Urine Clarity Sl. Cloudy, Urine pH 5.0, Ur Specific Tarrs 1.020, Urine Protein 100 H, Urine Glucose (UA) Normal, Urine Ketones Negative, Urine Occult Blood 250 H, Urine Nitrite Negative, Urine Bilirubin 1 H, Urine Urobilinogen Normal, Ur Leukocyte Esterase 500 H, Urine RBC> 100 SEEN, Urine WBC 5-10 SEEN, Ur Squamous Epith Cells 0 SEEN, Urine Bacteria 0 SEEN, Urine Mucus 0 SEEN 04/05/25 13:17: POC Glucose 226 H 04/05/25 13:44: Sodium 137, Potassium 5.7 H, Chloride 102, Carbon Dioxide 15.6 L, Anion Gap 19 H, BUN 99 H, Creatinine 4.77 H, Estim Creat Clear Calc 10.67 L, Est GFR (MDRD) Non-Af 12 L, BUN/Creatinine Ratio 20.8 H, Glucose 205 H, Calcium 8.9 04/05/25 16:51: POC Glucose 165 H 04/05/25 21:35: POC Glucose 282 H 04/06/25 06:24: WBC 14.8 H, RBC 2.57 L, Hgb 7.9 L, Hct 23.6 L, MCV 91.8, MCH 30.7, MCHC 33.5, RDW Std Deviation 46.2 H, RDW Coeff of Humaira 13.8, Plt Count 222,MPV 11.9, Immature Gran % (Auto) 0.500, Neut % (Auto) 83.3 H, Lymph % (Auto) 9.1L, Ada % (Auto) 7.0, Eos % (Auto) 0.0, Baso % (Auto) 0.1, Absolute Neuts (auto)12.3 H, Absolute Lymphs (auto) 1.34, Nucleated RBC % 0 04/06/25 06:25: POC Glucose 281 H 04/06/25 08:40: Sodium 139, Potassium 4.2, Chloride 100, Carbon Dioxide 21.0, Anion Gap 18 H, BUN 103 H*, Creatinine 4.73 H, Estim Creat Clear Calc 11.24 L, Est GFR (MDRD) Non-Af 12 L, BUN/CreatinineRatio 21.8 H, Glucose 233 H, Calcium 8.3 Micro: Microbiology 04/03/25 02:25 Blood Culture (Wb) - Anticubital Left Blood Culture - Preliminary No growth in 48 hours. 04/03/25 03:50 Blood Culture (Wb) - Anticubital Left Blood Culture - Preliminary No growth in 48 hours. 04/03/25 05:51 Urine, Clean Catch Urine Culture - Final Culture exhibits no growth. 04/03/25 05:46 Wound - Elbow Skin and Soft Tissue MRSA/MSSA (PCR - Final 04/03/25 05:10 Mucosa - Nasopharyngeal Respiratory Panel (PCR) - Final 04/03/25 05:51 Urine, Clean Catch Legionella Antigen - Final 04/03/25 05:51 Urine Catheter - Catheter Streptococcus pneumoniae Antigen (M- Final 04/03/25 00:25 Mucosa - Nose SARS-CoV-2, Influenza & RSV (PCR) - Final Radiography Diagnostic Testing: Radiology Impression Chest X-Ray 04/05/25 18:02 IMPRESSION: Interval insertion of right IJ line with tip at SVC, likely in appropriate position. Lung findings are grossly unchanged. Reading Location: [facility] Rhythm Strip Rhythm Strip: Sinus Rhythm Rate: 86 Physical Exam Narrative He is alert and oriented x 3. No acute distress. Right IJ catheter in place. Patient currently hooked up to dialysis machine. No bleeding or evidence of infection Assessment & Plan Assessment/Plan (1) MADONNA (acute kidney injury): PLAN: Plan The patient is an 79-year-old male with acute kidney injury. Temporary dialysiscatheter was placed last evening. This seems to be working fine. Continue dialysis per nephrology. No surgical plans. Will sign off 04/06/25 1124 Cosigner Signature (if applicable): CC: ~ Signed [facility]06-06-2025 Progress note [facility] Medical Records Department [address] [place] [address] Progress Note - Foil Stamp Operator 04/06/25 0938 MR#: [id number] Acct: [id number] Name: ENOC ARMANDO Rep #:[id number] : 1945 79 From: Landry Fagan DO PCP: Dr. Ryley Jeter MD Status:ADM IN Location: [facility] [id number]- [id number] Assessment & Plan Assessment/Plan (1) Acute hypoxic respiratory failure: PLAN: Plan RECOMMENDATIONS: 1. Continue supplemental oxygen to maintain saturations at or above 90%. 2. Empiric BiPAP therapy with naps and nightly. 3. Continue empiric antimicrobials, bronchodilators and steroids. 4. The patient will undoubtedly need to follow-up in the pulmonary medicine clinic so that baselinePFTs can be obtained. 5. Smoking cessation is advisable. 6. Dialysis support per nephrology recommendations. IMPRESSIONS: 1. Acute hypoxemic respiratory failure Clinical concern for multifactorial etiology with possible COPD exacerbation along with possible CHF contributing. The patient has an extensive tobacco abuse history, but has never been formally diagnosed with COPD. He does have evidence of bilateral pleural effusions along with questionable airspace disease, concerning for pneumonia. Accordingly, the patient will be continued on scheduled bronchodilators, antimicrobials and prednisone. Will defer additional medical optimization to cardiology, who is following. Ideally, the patient will need outpatient follow-up in the pulmonary medicine office after discharge so that baseline PFTs can be obtained. 2. Chronic tobacco dependency Tobacco cessation is strongly advised. Recommend outpatient pulmonary follow- upand PFTs. 3. Elevated troponin likely secondary to demand ischemia in the setting of #1 Continue current supportive care per cardiology recommendations. 4. Acute on chronic kidney disease Clinical concern for contrast nephropathy versus ATN. Nephrology is following to assist with hemodialysis needs. 5. History of diabetes mellitus/hypertension/hyperlipidemia/chronic kidney disease/BPH Complicates care, management, recovery and prognosis. Continue home medicationsas indicated. CODE STATUS: DNR CCA without intubation This note was generated with My[employer] dictation software. It may contain incorrectwords, spelling, and punctuation that were not noted in checking the note beforesigning. Subjective Subjective The patient was seen and examined at the bedside this morning. Events from the last 24 hours have been reviewed. The patient is currently afebrile, hemodynamically stable and maintaining appropriate oxygen saturations on 2 L/minvia nasal cannula. The patient has no specific complaints this morning.He is documented to be overall net +2.6 L for the hospitalization. White blood cell count was notedto be 15,000 with a hemoglobin of 8.0 g/dL. BUN is elevated at 103 with a creatinine of 4.73. The patient had a temporary hemodialysis catheter placed yesterday to facilitate the initiation of HD. Objective Data Objective Data The patient's most recent lab work, culture data and imaging studies have all been personally reviewed. Surface echocardiogram demonstrated an ejection fraction of 40% with stage I diastolic dysfunction and severe mitral annular calcification. Right ventricular systolic pressure was estimated to be41 mmHg. Strep and urine Legionella antigens were negative. Respiratory viral panel wasnegative. Blood and urine cultures have not demonstrated any growth to date. Vital Signs: Vital Signs Temp Pulse Resp BP Pulse Ox O2 Del Method O2 Flow Rate 97.6 F L 91 14 103/55 L 93 Nasal Cannula 2 04/06/25 08:38 04/06/25 08:38 04/06/25 08:38 04/06/25 08:38 04/06/25 08:38 04/06/25 08:38 04/06/25 08:38 FiO2 21 04/06/25 01:10 Oxygen Flow Rate (L/min) 2 Oxygen Delivery Method Nasal Cannula Weight: 143 lb 1.28 oz Body Mass Index (BMI) 22.4 Intake & Output: Intake and Output for Last 24 Hours 04/04/25 04/05/25 04/06/25 23:59 23:59 23:59 Intake Total 1341.85 / 1341.85 885 / 885 1210 / 1210 Output Total 100 / 100 900 / 900 200 / 200 Balance 1241.85 / 1241.85 -15 / -15 1010 / 1010 Lab / Micro Data Attestation: I reviewed the patient's lab results. 04/06/25 06:24 04/06/25 08:40 Labs: Laboratory Results - last 24 hr 04/05/25 07:39: POC Glucose 263 H 04/05/25 09:06: Sodium 136, Potassium 6.3 H*, Chloride 102, Carbon Dioxide 15.8 L, Anion Gap 18 H, BUN 96 H, Creatinine 4.68 H, Estim Creat Clear Calc 10.87 L, Est GFR (MDRD) Non-Af 12 L, BUN/Creatinine Ratio 20.5 H, Glucose 223 H, Calcium 8.1 04/05/25 11:05: POC Glucose 239 H 04/05/25 13:14: Urine Color Yellow, Urine Clarity Sl. Cloudy, Urine pH 5.0, Ur Specific Tarrs 1.020, Urine Protein 100 H, Urine Glucose (UA) Normal, Urine Ketones Negative, Urine Occult Blood 250 H, Urine Nitrite Negative, Urine Bilirubin 1 H, Urine Urobilinogen Normal, Ur Leukocyte Esterase 500 H, Urine RBC> 100 SEEN, Urine WBC 5-10 SEEN, Ur Squamous Epith Cells 0 SEEN, Urine Bacteria 0 SEEN, Urine Mucus 0 SEEN 04/05/25 13:17: POC Glucose 226 H 04/05/25 13:44: Sodium 137, Potassium 5.7 H, Chloride 102, Carbon Dioxide 15.6 L, Anion Gap 19 H, BUN 99 H, Creatinine 4.77 H, Estim Creat Clear Calc 10.67 L, Est GFR (MDRD) Non-Af 12 L, BUN/Creatinine Ratio 20.8 H, Glucose 205 H, Calcium 8.9 04/05/25 16:51: POC Glucose 165 H 04/05/25 21:35: POC Glucose 282 H 04/06/25 06:24: WBC 14.8 H, RBC 2.57 L, Hgb 7.9 L, Hct 23.6 L, MCV 91.8, MCH 30.7, MCHC 33.5, RDW Std Deviation 46.2 H, RDW Coeff of Humaira 13.8, Plt Count 222,MPV 11.9, Immature Gran % (Auto) 0.500, Neut % (Auto) 83.3 H, Lymph % (Auto) 9.1L, Ada % (Auto) 7.0, Eos % (Auto) 0.0, Baso % (Auto) 0.1, Absolute Neuts (auto)12.3 H, Absolute Lymphs (auto) 1.34, Nucleated RBC % 0 04/06/25 06:25: POC Glucose 281 H 04/06/25 08:40: Sodium 139, Potassium 4.2, Chloride 100, Carbon Dioxide 21.0, Anion Gap 18 H, BUN 103 H*, Creatinine 4.73 H, Estim Creat Clear Calc 11.24 L, Est GFR (MDRD) Non-Af 12 L, BUN/CreatinineRatio 21.8 H, Glucose 233 H, Calcium 8.3 Micro: Microbiology 04/03/25 02:25 Blood Culture (Wb) - Anticubital Left Blood Culture - Preliminary No growth in 48 hours. 04/03/25 03:50 Blood Culture (Wb) - Anticubital Left Blood Culture - Preliminary No growth in 48 hours. 04/03/25 05:51 Urine, Clean Catch Urine Culture - Final Culture exhibits no growth. 04/03/25 05:46 Wound - Elbow Skin and Soft Tissue MRSA/MSSA (PCR - Final 04/03/25 05:10 Mucosa - Nasopharyngeal Respiratory Panel (PCR) - Final 04/03/25 05:51 Urine, Clean Catch Legionella Antigen - Final 04/03/25 05:51 Urine Catheter - Catheter Streptococcus pneumoniae Antigen (M- Final 04/03/25 00:25 Mucosa - Nose SARS-CoV-2, Influenza & RSV (PCR) - Final Radiography Diagnostic Testing: Radiology Impression Chest X-Ray 04/05/25 18:02 IMPRESSION: Interval insertion of right IJ line with tip at SVC, likely in appropriate position. Lung findings are grossly unchanged. Reading Location: [facility] Rhythm Strip Rhythm Strip: Sinus Rhythm Rate: 86 Physical Exam Const alert, oriented x3 and no apparent distress HEENT normocephalic, head/scalp atraumatic and moist oral mucous membranes Eyes PERRL, EOMs intact bilaterally and conjunctivae normal Neck supple General: trachea midline and CVC in place Chest inspection of chest normal Resp normal respiratory effort and no use of accessory muscles Auscultation: rales and diminished lung sounds Cardio regular rate, S1 normal heart sound and S2 normal heart sound GI normal to inspection, nondistended, normoactive bowel sounds Extremity no clubbing, cyanosis or edema Skin Skin Narrative: Wrapped lower extremities. Neuro CN's II-XII intact bilaterally, moves all extremities and no focal motor deficits Psych cooperative and affect normal Charges/Coding Visit Charges Inpatient E&M: 22998 Subs Hosp L2 04/06/25 0942 Cosigner Signature (if applicable): CC: ~ Signed [facility]06-05-2025 Consult note Author Smooth Luis [facility] Note Date/Time April 05, 2025 6:10p m [facility] Medical Records Department [address] [place] [address] Consultation - Surgical 04/05/25 1806 MR#: [id number] Acct: [id number] Name: ENOC ARMANDO Rep #:[id number] : 1945 79 From: Smooth Luis MD PCP: Dr. Ryley Jeter MD Status:ADM IN Location: [facility] [id number] Assessment & Plan Assessment/Plan (1) CKD (chronic kidney disease), stage III: QUALIFIERS: Chronic kidney disease stage 3 subtype: stage 3b (GFR 30-44) Qualified Code(s): N18.32 - Chronic kidney disease, stage 3b PLAN: Plan Patient is an 79-year-old male with worsening renal function. Lifter is recommending temporary dialysis. Dialysis catheter was placed in the right internal jugular vein this evening in anticipation for dialysis in the morning. Patient tolerated this procedure well. Please see separate procedure note for details of the catheter placement HPI Consult Data Date of Consult: 04/05/25 HPI Narrative Reason for Consultation: Temporary dialysis catheter insertion HPI Narrative: ENOC ARMANDO, is a 79 M who presented to the emergency department at [facility] several days ago with history of worsening shortness of breath. Patient has multiple medical problems including chronic kidney disease,chronic macrocytic anemia, hypertension, hyperlipidemia, diabetes, BPH and tobacco abuse. Patient was subsequently admitted to the medicine service. It was noted that his creatinine was elevated and continued to rise during admission. He was seen by nephrology and they are recommending temporary dialysis. They are hoping to do dialysis tomorrow morning. As a result of surgery consult obtained to insert the temporary dialysis catheter. REPLACED BY [facility] Medical History Chronic anemia Tobacco use COPD (chronic obstructive pulmonary disease) HLD (hyperlipidemia) HTN (hypertension) BPH (benign prostatic hyperplasia) Chronic low back pain with sciatica Diabetes mellitus, type 2 CKD (chronic kidney disease), stage III Pneumonia COVID Wears glasses Wears dentures Home Medications ?Medication ?Instructions ?Recorded ?Last Taken ?Type amlodipine 10 mg tablet (Norvasc) 10 mg PO 1200 08/12/21 History aspirin 81 mg tablet,delayed 81 mg PO DAILY 08/05/21 U nknown History release insulin glargine 100 unit/mL (3 15 unit subcut QPM 03/21 Unknown History mL) subcutaneous pen (Lantus Solostar U-100 Insulin) insulin lispro 100 unit/mL 0 unit subcut TID SLIDING S JENNIFER 08/05/21 Unknown History subcutaneous pen tamsulosin 0.4 mg capsule (Flomax) 0.4 mg PO .COMPLEX urination 08/05/21 Unknown History ezetimibe 10 mg tablet 10 mg PO DAILY 04/06/24 Unkn own History lisinopril 5 mg tablet 5 mg PO DAILY 04/06/24 Unkno wn History metoprolol succinate 25 mg 25 mg PO DAILY 04/06/24 Unk nown History tablet,extended release 24 hr blood sugar diagnostic (Contour 09/12/24 Unknown Hist ory Next Test Strips) potassium chloride 20 mEq 20 meq PO BIDCM 30 days #60 tabs 09/14/24 Unknown Rx tablet,extended release(part/cryst) furosemide 40 mg tablet (Lasix) 40 mg PO DAILY 5 Unknown History hydralazine 50 mg tablet 50 mg PO Q8H 04/03/25 Unknow n History Allergy/AdvReac Type Severity Reaction Status Date / Time Corticosteroids AdvReac Other Verified 04/03/25 00:16 (Glucocorticoids) (steroids) Iuspfag-RSV-CfK Reductase AdvReac Other Verified 04/03/25 00:16 Inhibitor (Jlisiyt-Osa-Phm Reductase Inhibitor) Family History Mother COPD (chronic obstructive pulmonary disease) Father CAD (coronary artery disease) Heart disease Surgical History Hx of cystoscopy Hx of colonoscopy Hx of left cataract extraction Hx of right cataract extraction Social History household members: spouse Smoking Status: Current every day smoker tobacco type: cigarettes alcohol intake: never substance use type: does not use Physical Exam Const alert, oriented x3 and no apparent distress General Appearance: cooperative HEENT normocephalic and head/scalp atraumatic Eyes PERRL Neck full ROM Chest inspection of chest normal Resp normal respiratory effort Lab / Micro Data 04/05/25 02:45 04/05/25 13:44 Labs: Laboratory Results - last 24 hr 04/04/25 00:00: Troponin T Hi Sens 2 Hr 2263 H* 04/04/25 21:36: POC Glucose 355 H 04/04/25 21:59: Troponin T High Sens 2204 H* D 04/05/25 02:45: WBC 20.4 H, RBC 2.77 L, Hgb 8.3 L, Hct 25.6 L, MCV 92.4, MCH 30.0, MCHC 32.4, RDW Std Deviation 46.6 H, RDW Coeff of Humaira 13.8, Plt Count 255,MPV 11.7, Immature Gran % (Auto) 1.000 H, Neut % (Auto) 85.5 H, Lymph % (Auto) 5.7 L, Ada % (Auto) 7.7, Eos % (Auto) 0.0, Baso % (Auto) 0.1, Absolute Neuts (auto) 17.4 H, Absolute Lymphs (auto) 1.16, Nucleated RBC % 0, Differential Comment SCANNED, Troponin T Hi Sens 4Hr 2425 H* 04/05/25 06:26: POC Glucose 253 H 04/05/25 07:39: POC Glucose 263 H 04/05/25 09:06: Sodium 136, Potassium 6.3 H*, Chloride 102, Carbon Dioxide 15.8 L, Anion Gap 18 H, BUN 96 H, Creatinine 4.68 H, Estim Creat Clear Calc 10.87 L, Est GFR (MDRD) Non-Af 12 L, BUN/Creatinine Ratio 20.5 H, Glucose 223 H, Calcium 8.1 04/05/25 11:05: POC Glucose 239 H 04/05/25 13:14: Urine Color Yellow, Urine Clarity Sl. Cloudy, Urine pH 5.0, Ur Specific Tarrs 1.020, Urine Protein 100 H, Urine Glucose (UA) Normal, Urine Ketones Negative, Urine Occult Blood 250 H, Urine Nitrite Negative, Urine Bilirubin 1 H, Urine Urobilinogen Normal, Ur Leukocyte Esterase 500 H, Urine RBC> 100 SEEN, Urine WBC 5-10 SEEN, Ur Squamous Epith Cells 0 SEEN, Urine Bacteria 0 SEEN, Urine Mucus 0 SEEN 04/05/25 13:17: POC Glucose 226 H 04/05/25 13:44: Sodium 137, Potassium 5.7 H, Chloride 102, Carbon Dioxide 15.6 L, Anion Gap 19 H, BUN 99 H, Creatinine 4.77 H, Estim Creat Clear Calc 10.67 L, Est GFR (MDRD) Non-Af 12 L, BUN/Creatinine Ratio 20.8 H, Glucose 205 H, Calcium 8.9 Micro: Microbiology 04/03/25 02:25 Blood Culture (Wb) - Anticubital Left Blood Culture - Preliminary No growth in 48 hours. 04/03/25 03:50 Blood Culture (Wb) - Anticubital Left Blood Culture - Preliminary No growth in 48 hours. 04/03/25 05:51 Urine, Clean Catch Urine Culture - Final Culture exhibits no growth. Rhythm Strip Rhythm Strip: Sinus Rhythm Rate: 86 Imaging Radiology Impression Renal Ultrasound 04/04/25 11:33 IMPRESSION: 1. Mild renal cortical thinning bilaterally. No hydronephrosis. 2. Nonobstructing stone in the left kidney measuring 0.5 cm, unchanged. 3. Prostatomegaly with an echogenic nodule measuring 1.9 cm, similar to prior. Correlate with PSA. Reading Location: [id number] Charges/Coding Visit Charges Inpatient E&M: 51979 Init Hosp L3 04/05/25 1810 <Electronically signed by Smooth Luis MD> Cosigner Signature (if applicable): CC: Dr. Ryley Jeter MD~ Signed [facility] Work Phone: 1(929) 242-324506-05-2025 Radiology Diagnostic study note [facility] Imaging Services [address] [place], [place] [address] CXR for Line Placement MR#: [id number] Acct: [id number] Name: ENOC ARMANDO Rep #: [id number] : 1945 M 79 From: Chely Batista MD PCP: Dr. Ryley Jeter MD Status: ADM IN Study:CXR for Line Placement Date of Exam: 04/05/25 Exam# [id number] Ordering Dr: St dany Luis MD PROCEDURE: CXR FOR LINE PLACEMENT 04/05/2025 REASON FOR EXAM: TEMP HD CATH INSERTION ON RIGHT TECHNIQUE: Single frontal view of the chest COMPARISON: 04/03/2025 RAD/CXR for Line Placement IMPRESSION: Interval insertion of right IJ line with tip at SVC, likely in appropriate position. Lung findings are grossly unchanged. Reading Location: [facility] CC: Dr. Ryley Jeter MD; Dr. Smooth Luis MD ~ Exercise Manager: Signed [facility]06-05-2025 Progress note Author Grace Arnold [facility] Note Date/Time April 05, 2025 5:19p m [facility] Medical Records Department [address] [place] [address] Progress Note 04/05/25 1212 MR#: [id number] Acct: [id number] Name: ENOC ARMANDO Rep #:[id number] : 1945 79 From: Grace Arnold MD PCP: Dr. Ryley Jeter MD Status:ADM IN Location: [facility] [id number] Subjective Subjective Patient seen and examined. He got more short of breath this morning and had to be put on BIPAP due to increased work of breathing. His potassium was also elevated this morning. Cr has also trended up further to 4.68 today. Objective Data Objective Data Vital Signs: Vital Signs Temp Pulse Resp BP Pulse Ox O2 Del Method O2 Flow Rate 97.6 F L 85 20 H 106/61 95 Nasal Cannula 4 04/05/25 06:23 04/05/25 09:30 04/05/25 07:58 04/05/25 09:30 04/05/25 09:30 04/05/25 09:30 04/05/25 09:30 FiO2 35 04/05/25 07:58 Oxygen Flow Rate (L/min) 4 Oxygen Delivery Method Nasal Cannula Weight: 136 lb 14.513 oz Body Mass Index (BMI) 21.4 Intake & Output: Intake and Output for Last 24 Hours 04/03/25 04/04/25 04/05/25 23:59 23:59 23:59 Intake Total 713.88 / 713.88 1341.85 / 1341.85 Output Total 350 / 350 100 / 100 400 / 400 Balance 363.88 / 363.88 1241.85 / 1241.85 -400 / -400 Lab / Micro Data 04/05/25 02:45 04/05/25 09:06 Labs: Laboratory Results - last 24 hr 04/04/25 00:00: Troponin T Hi Sens 2 Hr 2263 H* 04/04/25 13:45: Sodium 134, Potassium 5.4 H, Chloride 101, Carbon Dioxide 17.2 L, Anion Gap 17 H, BUN 77 H, Creatinine 3.74 H, Estim Creat Clear Calc 13.61 L, Est GFR (MDRD) Non-Af 16 L, BUN/Creatinine Ratio 20.5 H, Glucose 226 H, Calcium 8.6 04/04/25 14:26: Urine Creatinine 138.00, Urine Urea Nitrogen 406 04/04/25 16:39: POC Glucose 307 H 04/04/25 21:36: POC Glucose 355 H 04/04/25 21:59: Troponin T High Sens 2204 H* D 04/05/25 02:45: WBC 20.4 H, RBC 2.77 L, Hgb 8.3 L, Hct 25.6 L, MCV 92.4, MCH 30.0, MCHC 32.4, RDW Std Deviation 46.6 H, RDW Coeff of Humaira 13.8, Plt Count 255,MPV 11.7, Immature Gran % (Auto) 1.000 H, Neut % (Auto) 85.5 H, Lymph % (Auto) 5.7 L, Ada % (Auto) 7.7, Eos % (Auto) 0.0, Baso % (Auto) 0.1, Absolute Neuts (auto) 17.4 H, Absolute Lymphs (auto) 1.16, Nucleated RBC % 0, Differential Comment SCANNED, Troponin T Hi Sens 4Hr 2425 H* 04/05/25 06:26: POC Glucose 253 H 04/05/25 09:06: Sodium 136, Potassium 6.3 H*, Chloride 102, Carbon Dioxide 15.8 L, Anion Gap 18 H, BUN 96 H, Creatinine 4.68 H, Estim Creat Clear Calc 10.87 L, Est GFR (MDRD) Non-Af 12 L, BUN/Creatinine Ratio 20.5 H, Glucose 223 H, Calcium 8.1 Micro: Microbiology 04/03/25 02:25 Blood Culture (Wb) - Anticubital Left Blood Culture - Preliminary No growth in 48 hours. 04/03/25 03:50 Blood Culture (Wb) - Anticubital Left Blood Culture - Preliminary No growth in 48 hours. 04/03/25 05:51 Urine, Clean Catch Urine Culture - Final Culture exhibits no growth. 04/03/25 05:46 Wound - Elbow Skin and Soft Tissue MRSA/MSSA (PCR - Final 04/03/25 05:10 Mucosa - Nasopharyngeal Respiratory Panel (PCR) - Final 04/03/25 05:51 Urine, Clean Catch Legionella Antigen - Final 04/03/25 05:51 Urine Catheter - Catheter Streptococcus pneumoniae Antigen (M- Final 04/03/25 00:25 Mucosa - Nose SARS-CoV-2, Influenza & RSV (PCR) - Final Radiography Diagnostic Testing: Radiology Impression Renal Ultrasound 04/04/25 11:33 IMPRESSION: 1. Mild renal cortical thinning bilaterally. No hydronephrosis. 2. Nonobstructing stone in the left kidney measuring 0.5 cm, unchanged. 3. Prostatomegaly with an echogenic nodule measuring 1.9 cm, similar to prior. Correlate with PSA. Reading Location: [id number] Rhythm Strip Rhythm Strip: Sinus Rhythm Rate: 86 Physical Exam Const alert and oriented x3 Constitutional Narrative: on BIPAP this morning, looks anxious General Appearance: cooperative HEENT normocephalic, moist oral mucous membranes, oropharynx normal and gingiva normal Eyes PERRL and EOMs intact bilaterally Neck no lymphadenopathy and supple Lymph Lymphatic: no lymphadenopathy noted and no lymphedema noted Resp Resp Narrative: moderately diminished breath sounds bilaterally, on BIPAP. tachypneic at time of review, no wheezes or crackles. Effort and Inspection: tachypneic Cardio regular rate, regular rhythm, S1 normal heart sound, S2 normal heart sound and no murmurs GI normal to inspection, nondistended, normoactive bowel sounds, soft to palpation and non-tender Extremity normal capillary refill, no clubbing, cyanosis or edema and no calf tenderness General Extremity: no tenderness to palpation of joints or extremities Skin General Skin Exam: no breakdown Neuro CN's II-XII intact bilaterally, no focal motor deficits and no sensory deficits noted Motor Exam: general weakness Psych thought process normal and cooperative Appearance: appropriate Assessment & Plan Assessment/Plan (1) Acute hypoxic respiratory failure: PLAN: Plan #Acute hypoxic respiratory failure due to acute on chronic COPD examination and probable heart failure as well as superimposed pneumonia * back on BIPAP this morning due to worsening shortness of breath. * sputum cultures pending. Urine for strep and legionella negative. Respiratory panel negative. * breathing treatment with bronchodilators. Titrate oxygen to maintain sats >90% * critical care on board. * 2D echo ordered showed EF of 40% with LV hypokinesis and stage I diastolic dysfunction and RVSP of 41mmHg. * cardiology consulted. Per cardiology he had a cardiac cath 2 years ago at [facility] and was told he had 2 blockages which were not amenable to revascularization. Records requested from [facility]. Further management as per cardiology. * #Elevated cardiac enzymes: * initial troponin was 58, and only peaked at 76. 2D echo as above. * Further records requested from [facility] as above * cardiology on board * #MADONNA on CKD III with hyperkalemia * Cr trended up further to 4.63 today. Potassium is also elevated at 6.3 * lasix and lisinopril on hold. Potassium also held * Osborne catheter in situ. Patient given hyperkalemia protocol and also given Kayexalate. * Nephrology started patient on sodium bicarb this morning also. Patient counseled that if these measures do not help then he will need to start temporary dialysis. * will repeat BMP after kayexalate to monitor potassium * EKG: #Leukocytosis: WBCs at 20 today, down from 22 yesterday. Likely due to IV steroid she is receiving. Will monitor.. Switch to PO prednisone. #Type 2 diabetes mellitus: on lantus. ISS. Accuchecks ACHS #Hyperlipidemia: on ezetimibe #Nicotine dependence: counseled to quit. Nicotine patch prn. DVT prophylaxis: heparin sq. Charges/Coding Visit Charges Inpatient E&M: 31974 Subs Hosp L3 04/05/25 1719 <Electronically signed by Grace Arnold MD> Grace Arnold MD Cosigner Signature (if applicable): CC: ~ Signed [facility] Work Phone: [phone]) 569-319706-05-2025 Procedure note [facility] Medical Records Department [address] [place] [address] Operative Report 04/05/25 1810 MR#: [id number] Acct: [id number] Name: ENOC ARMANDO Rep #:[id number] : 1945 79 From: Smooth Luis MD PCP: Dr. Ryley Jeter MD Status:ADM IN Location: [facility] [id number] Problems Associated Problem List Diagnoses (1) CKD (chronic kidney disease), stage III: Procedures Cardiovascular CF Procedures [id number]: [id number] Insert tunneled cv cath Operative Report (Standard) Operative Information Date of Procedure: 04/05/25 Pre-Operative Diagnosis: Renal failure Post-Operative Diagnosis: Renal failure Surgery/Procedure Performed: Right internal jugular temporary dialysis catheter insertion with ultrasound eap specialist: No Type of Anesthesia: Local Procedure Start Time: 17:00 Procedure Stop Time: 17:20 Select all DRAINS/GRAFTS/IMPLANTS that apply: Prosthetic device Prosthetic device details: 12 Icelandic temporary dialysis catheter Estimated Blood Loss: 15 mL Specimen collected: No Description of surgery: After obtaining informed consent, the patient was positioned flat on the hospital bed. An axillary roll was placed near his upper lower back. The patient's head was rolled to the left to expose the right side of the neck. Thearea was then prepped and draped in the usual sterile manner. Ultrasound was utilized to identify the right internal jugular vein. The area was then injected with local anesthetic. Using the supplied needle and syringe I was able to gain access to the right internal jugularvein. The blood return was a dark red, nonpulsatile, venous appearing blood return. The supplied guidewire was threaded through the aperture and the needle. Patient did develop some ectopy with initial guidewire insertion. This was withdrawn slightly until the ectopy resolved. A small incision was made at the entry point of the guidewire using #11 blade. Dilators supplied in the kit or sequentially inserted. The dialysis catheter was then threaded over the guidewire and advanced. The guidewire was then removed. Both ports were capped/clamped. The catheter was then secured to the skin using the supplied suture. Sterile dressing was then applied. The ports were then flushed with saline. They jb and flushed easilywithout any resistance to flow. Heparin was then inserted into each port. About 2-1/2 mL were inserted into each port and they were both capped and clamped. Patient tolerated the procedure well. A postprocedure chest x-ray wasordered. Surgical Findings: See procedure note Complications Complications: No Admit VTE Documentation VTE Present on Admission: No VTE Mechan Device Prophylaxis: SCD's VTE Pharm Prophylaxis ordered?: No Reason prophylaxis not ordered: Treatment Not Indicated 04/05/25 1817 Cosigner Signature (if applicable): CC: Dr. Harinder Gill MD; Dr. Tennille Limon MD; Dr. Dyana Hwang MD; Dr. Moe Ortiz MD; Dr.Chalon Steffany MD; Dr. Nancy Maharaj MD; Dr. Landry Fagan DO; Dr. Terry Davis MD; Dr. Hadley Bermeo MD; Dr. Duncan Hussein MD; Dr. Denisha Thompson MD; Dr. Brock Jeffries MD; Dr. Arnulfo Adame MD; Dr. Bhakti Melara MD; Dr. Charlie Garcia MD; Dr. Isabela Woods MD; Dr. Breezy Campbell MD;Dr. Harley MD; Dr. Adarsh Mosquera MD; Dr. Mick Jane MD; Dr. Chloe Gallardo MD; Dr. Smooth Luis MD; Dr. Favian Moreno MD; Dr. Dillon Moses DO; Dr. Jose Rafael Dailey DO; Dr. Nate Forbes MD; Dr. Donte Nolen MD; Dr. Nina Lee MD~ Signed [facility]06-05-2025 Consult note [facility] Medical Records Department [address] [place] [address] Consultation - Surgical 04/05/25 1806 MR#: [id number] Acct: [id number] Name: ENOC ARMANDO Rep #:[id number] : 1945 79 From: Smooth Luis MD PCP: Dr. Ryley Jeter MD Status:ADM IN Location: [place] [id number] Assessment & Plan Assessment/Plan (1) CKD (chronic kidney disease), stage III: QUALIFIERS: Chronic kidney disease stage 3 subtype: stage 3b (GFR 30-44) Qualified Code(s): N18.32 - Chronic kidney disease, stage 3b PLAN: Plan Patient is an 79-year-old male with worsening renal function. [facility] is recommending temporary dialysis. Dialysis catheter was placed in the right internal jugular vein this evening in anticipation for dialysis in the morning. Patient tolerated this procedure well. Please see separate procedure note for details of the catheter placement HPI Consult Data Date of Consult: 04/05/25 HPI Narrative Reason for Consultation: Temporary dialysis catheter insertion HPI Narrative: ENOC ARMANDO, is a 79 M who presented to the emergency department at [facility] several days ago with history of worsening shortness of breath. Patient has multiple medical problems including chronic kidney disease,chronic macrocytic anemia, hypertension, hyperlipidemia, diabetes, BPH and tobacco abuse. Patient was subsequently admitted to the medicine service. It was noted that his creatinine was elevated and continued to rise during admission. He was seen by nephrology and they are recommending temporary dialysis. They are hoping to do dialysis tomorrow morning. As a result of surgery consult obtained to insert the temporary dialysis catheter. REPLACED BY [facility] Medical History Chronic anemia Tobacco use COPD (chronic obstructive pulmonary disease) HLD (hyperlipidemia) HTN (hypertension) BPH (benign prostatic hyperplasia) Chronic low back pain with sciatica Diabetes mellitus, type 2 CKD (chronic kidney disease), stage III Pneumonia COVID Wears glasses Wears dentures Home Medications ?Medication ?Instructions ?Recorded ?Last Taken ?Type amlodipine 10 mg tablet (Norvasc) 10 mg PO 1200 08/12/21 History aspirin 81 mg tablet,delayed 81 mg PO DAILY 08/05/21 U nknown History release insulin glargine 100 unit/mL (3 15 unit subcut QPM 03/21 Unknown History mL) subcutaneous pen (Lantus Solostar U-100 Insulin) insulin lispro 100 unit/mL 0 unit subcut TID SLIDING S JENNIFER 08/05/21 Unknown History subcutaneous pen tamsulosin 0.4 mg capsule (Flomax) 0.4 mg PO .COMPLEX urination 08/05/21 Unknown History ezetimibe 10 mg tablet 10 mg PO DAILY 04/06/24 Unkn own History lisinopril 5 mg tablet 5 mg PO DAILY 04/06/24 Unkno wn History metoprolol succinate 25 mg 25 mg PO DAILY 04/06/24 Unk nown History tablet,extended release 24 hr blood sugar diagnostic (Contour 09/12/24 Unknown Hist ory Next Test Strips) potassium chloride 20 mEq 20 meq PO BIDCM 30 days #60 tabs 09/14/24 Unknown Rx tablet,extended release(part/cryst) furosemide 40 mg tablet (Lasix) 40 mg PO DAILY 5 Unknown History hydralazine 50 mg tablet 50 mg PO Q8H 04/03/25 Unknow n History Allergy/AdvReac Type Severity Reaction Status Date / Time Corticosteroids AdvReac Other Verified 04/03/25 00:16 (Glucocorticoids) (steroids) Nizbody-TKX-OsV Reductase AdvReac Other Verified 04/03/25 00:16 Inhibitor (Piqnwzv-Kvj-Ooq Reductase Inhibitor) Family History Mother COPD (chronic obstructive pulmonary disease) Father CAD (coronary artery disease) Heart disease Surgical History Hx of cystoscopy Hx of colonoscopy Hx of left cataract extraction Hx of right cataract extraction Social History household members: spouse Smoking Status: Current every day smoker tobacco type: cigarettes alcohol intake: never substance use type: does not use Physical Exam Const alert, oriented x3 and no apparent distress General Appearance: cooperative HEENT normocephalic and head/scalp atraumatic Eyes PERRL Neck full ROM Chest inspection of chest normal Resp normal respiratory effort Lab / Micro Data 04/05/25 02:45 04/05/25 13:44 Labs: Laboratory Results - last 24 hr 04/04/25 00:00: Troponin T Hi Sens 2 Hr 2263 H* 04/04/25 21:36: POC Glucose 355 H 04/04/25 21:59: Troponin T High Sens 2204 H* D 04/05/25 02:45: WBC 20.4 H, RBC 2.77 L, Hgb 8.3 L, Hct 25.6 L, MCV 92.4, MCH 30.0, MCHC 32.4, RDW Std Deviation 46.6 H, RDW Coeff of Humaira 13.8, Plt Count 255,MPV 11.7, Immature Gran % (Auto) 1.000 H, Neut % (Auto) 85.5 H, Lymph % (Auto) 5.7 L, Ada % (Auto) 7.7, Eos % (Auto) 0.0, Baso % (Auto) 0.1, Absolute Neuts (auto) 17.4 H, Absolute Lymphs (auto) 1.16, Nucleated RBC % 0, Differential Comment SCANNED, Troponin T Hi Sens 4Hr 2425 H* 04/05/25 06:26: POC Glucose 253 H 04/05/25 07:39: POC Glucose 263 H 04/05/25 09:06: Sodium 136, Potassium 6.3 H*, Chloride 102, Carbon Dioxide 15.8 L, Anion Gap 18 H, BUN 96 H, Creatinine 4.68 H, Estim Creat Clear Calc 10.87 L, Est GFR (MDRD) Non-Af 12 L, BUN/Creatinine Ratio 20.5 H, Glucose 223 H, Calcium 8.1 04/05/25 11:05: POC Glucose 239 H 04/05/25 13:14: Urine Color Yellow, Urine Clarity Sl. Cloudy, Urine pH 5.0, Ur Specific Tarrs 1.020, Urine Protein 100 H, Urine Glucose (UA) Normal, Urine Ketones Negative, Urine Occult Blood 250 H, Urine Nitrite Negative, Urine Bilirubin 1 H, Urine Urobilinogen Normal, Ur Leukocyte Esterase 500 H, Urine RBC> 100 SEEN, Urine WBC 5-10 SEEN, Ur Squamous Epith Cells 0 SEEN, Urine Bacteria 0 SEEN, Urine Mucus 0 SEEN 04/05/25 13:17: POC Glucose 226 H 04/05/25 13:44: Sodium 137, Potassium 5.7 H, Chloride 102, Carbon Dioxide 15.6 L, Anion Gap 19 H, BUN 99 H, Creatinine 4.77 H, Estim Creat Clear Calc 10.67 L, Est GFR (MDRD) Non-Af 12 L, BUN/Creatinine Ratio 20.8 H, Glucose 205 H, Calcium 8.9 Micro: Microbiology 04/03/25 02:25 Blood Culture (Wb) - Anticubital Left Blood Culture - Preliminary No growth in 48 hours. 04/03/25 03:50 Blood Culture (Wb) - Anticubital Left Blood Culture - Preliminary No growth in 48 hours. 04/03/25 05:51 Urine, Clean Catch Urine Culture - Final Culture exhibits no growth. Rhythm Strip Rhythm Strip: Sinus Rhythm Rate: 86 Imaging Radiology Impression Renal Ultrasound 04/04/25 11:33 IMPRESSION: 1. Mild renal cortical thinning bilaterally. No hydronephrosis. 2. Nonobstructing stone in the left kidney measuring 0.5 cm, unchanged. 3. Prostatomegaly with an echogenic nodule measuring 1.9 cm, similar to prior. Correlate with PSA. Reading Location: [facility] Charges/Coding Visit Charges Inpatient E&M: 50085 Init Hosp L3 04/05/25 1810 Cosigner Signature (if applicable): CC: Dr. Ryley Jeter MD~ Signed [facility]06-05-2025 Progress note Author Denisha Thompson [facility] Note Date/Time April 05, 2025 3:20p m [facility] Medical Records Department [address] [place] [address] Progress Note - Nephrology 04/05/25 1518 MR#: [id number] Acct: [id number] Name: ENOC ARMANDO Rep #:[id number] : 1945 79 From: Denisha tirado MD PCP: Dr. Ryley Jeter MD Status:ADM IN Location: [place] [address] Subjective Subjective he is on bipap Objective Data Objective Data Vital Signs: Vital Signs Temp Pulse Resp BP Pulse Ox O2 Del Method O2 Flow Rate 97.6 F L 76 14 98/43 L 98 Nasal Cannula 4 04/05/25 13:22 04/05/25 14:40 04/05/25 14:40 04/05/25 14:40 04/05/25 15:03 04/05/25 15:03 04/05/25 15:03 FiO2 25 04/05/25 12:10 Oxygen Flow Rate (L/min) 4 Oxygen Delivery Method Nasal Cannula Weight: 62.1 kg Body Mass Index (BMI) 21.4 Intake & Output: Intake and Output for Last 24 Hours 04/03/25 04/04/25 04/05/25 23:59 23:59 23:59 Intake Total 713.88 / 713.88 1341.85 / 1341.85 480 / 480 Output Total 350 / 350 100 / 100 600 / 600 Balance 363.88 / 363.88 1241.85 / 1241.85 -120 / -120 Lab / Micro Data 04/05/25 02:45 04/05/25 13:44 Labs: Laboratory Results - last 24 hr 04/04/25 00:00: Troponin T Hi Sens 2 Hr 2263 H* 04/04/25 14:26: Urine Creatinine 138.00, Urine Urea Nitrogen 406 04/04/25 16:39: POC Glucose 307 H 04/04/25 21:36: POC Glucose 355 H 04/04/25 21:59: Troponin T High Sens 2204 H* D 04/05/25 02:45: WBC 20.4 H, RBC 2.77 L, Hgb 8.3 L, Hct 25.6 L, MCV 92.4, MCH 30.0, MCHC 32.4, RDW Std Deviation 46.6 H, RDW Coeff of Humaira 13.8, Plt Count 255,MPV 11.7, Immature Gran % (Auto) 1.000 H, Neut % (Auto) 85.5 H, Lymph % (Auto) 5.7 L, Ada % (Auto) 7.7, Eos % (Auto) 0.0, Baso % (Auto) 0.1, Absolute Neuts (auto) 17.4 H, Absolute Lymphs (auto) 1.16, Nucleated RBC % 0, Differential Comment SCANNED, Troponin T Hi Sens 4Hr 2425 H* 04/05/25 06:26: POC Glucose 253 H 04/05/25 07:39: POC Glucose 263 H 04/05/25 09:06: Sodium 136, Potassium 6.3 H*, Chloride 102, Carbon Dioxide 15.8 L, Anion Gap 18 H, BUN 96 H, Creatinine 4.68 H, Estim Creat Clear Calc 10.87 L, Est GFR (MDRD) Non-Af 12 L, BUN/Creatinine Ratio 20.5 H, Glucose 223 H, Calcium 8.1 04/05/25 13:14: Urine Color Yellow, Urine Clarity Sl. Cloudy, Urine pH 5.0, Ur Specific Tarrs 1.020, Urine Protein 100 H, Urine Glucose (UA) Normal, Urine Ketones Negative, Urine Occult Blood 250 H, Urine Nitrite Negative, Urine Bilirubin 1 H, Urine Urobilinogen Normal, Ur Leukocyte Esterase 500 H, Urine RBC> 100 SEEN, Urine WBC 5-10 SEEN, Ur Squamous Epith Cells 0 SEEN, Urine Bacteria 0 SEEN, Urine Mucus 0 SEEN 04/05/25 13:17: POC Glucose 226 H 04/05/25 13:44: Sodium 137, Potassium 5.7 H, Chloride 102, Carbon Dioxide 15.6 L, Anion Gap 19 H, BUN 99 H, Creatinine 4.77 H, Estim Creat Clear Calc 10.67 L, Est GFR (MDRD) Non-Af 12 L, BUN/Creatinine Ratio 20.8 H, Glucose 205 H, Calcium 8.9 Micro: Microbiology 04/03/25 02:25 Blood Culture (Wb) - Anticubital Left Blood Culture - Preliminary No growth in 48 hours. 04/03/25 03:50 Blood Culture (Wb) - Anticubital Left Blood Culture - Preliminary No growth in 48 hours. 04/03/25 05:51 Urine, Clean Catch Urine Culture - Final Culture exhibits no growth. 04/03/25 05:46 Wound - Elbow Skin and Soft Tissue MRSA/MSSA (PCR - Final 04/03/25 05:10 Mucosa - Nasopharyngeal Respiratory Panel (PCR) - Final 04/03/25 05:51 Urine, Clean Catch Legionella Antigen - Final 04/03/25 05:51 Urine Catheter - Catheter Streptococcus pneumoniae Antigen (M- Final 04/03/25 00:25 Mucosa - Nose SARS-CoV-2, Influenza & RSV (PCR) - Final Radiography Diagnostic Testing: Radiology Impression Renal Ultrasound 04/04/25 11:33 IMPRESSION: 1. Mild renal cortical thinning bilaterally. No hydronephrosis. 2. Nonobstructing stone in the left kidney measuring 0.5 cm, unchanged. 3. Prostatomegaly with an echogenic nodule measuring 1.9 cm, similar to prior. Correlate with PSA. Reading Location: [id number] Rhythm Strip Rhythm Strip: Sinus Rhythm Rate: 86 Physical Exam Narrative Alert and oriented x 3, no apparent distress S1, S2, RRR Diminished breath sounds. No rales or rhonchi. On O2 nasal cannula 3 to 4 L Abdomen soft, nontender, nondistended No edema External Osborne in place Assessment & Plan Assessment/Plan (1) MADONNA (acute kidney injury): (2) CKD (chronic kidney disease), stage III: QUALIFIERS: Chronic kidney disease stage 3 subtype: stage 3b (GFR 30-44) Qualified Code(s): N18.32 - Chronic kidney disease, stage 3b (3) Acute hypoxic respiratory failure: PLAN: Plan This is an 79-year-old male with past medical history significant for hypertension, CKD stage III (followed by Dr. Albert in [place]), COPD, diabetes mellitus admitted to the hospital for acute hypoxic respiratory failure, multifactorial from COPD and/or pneumonia and/or possible heart failure contributing. Nephrology consulted in view of elevated creatinine. Baseline creatinine is around 1.8 mg/dL range. Creatinine was 1.8 on admission received contrast on admit Renal US no hydronephrosis UA ordered This morning worsening renal function, hyperkalemia. dw hospitaalist. medical treatment given. lasix 80 mg given. did not respond much. only about 200 cc of urine. presumably MADONNA due to contrast nephropathy vs ATN start low dose bicarbonate drip due to lack of urine output and worsening renal failure needs temporary dialysis 04/05/25 1520 <Electronically signed by Denisha Thompson MD> Cosigner Signature (if applicable): CC: ~ Signed [facility] Work Phone: [phone]) [phone] Progress note [facility] Medical Records Department [address] [place] [address] Progress Note 04/05/25 1212 MR#: [id number] Acct: [id number] Name: ENOC ARMANDO Rep #:[id number] : 1945 79 From: Grace Arnold MD PCP: Dr. Ryley Jeter MD Status:ADM IN Location: [place] [address] Subjective Subjective Patient seen and examined. He got more short of breath this morning and had to be put on BIPAP due to increased work of breathing. His potassium was also elevated this morning. Cr has also trended upfurther to 4.68 today. Objective Data Objective Data Vital Signs: Vital Signs Temp Pulse Resp BP Pulse Ox O2 Del Method O2 Flow Rate 97.6 F L 85 20 H 106/61 95 Nasal Cannula 4 04/05/25 06:23 04/05/25 09:30 04/05/25 07:58 04/05/25 09:30 04/05/25 09:30 04/05/25 09:30 04/05/25 09:30 FiO2 35 04/05/25 07:58 Oxygen Flow Rate (L/min) 4 Oxygen Delivery Method Nasal Cannula Weight: 136 lb 14.513 oz Body Mass Index (BMI) 21.4 Intake & Output: Intake and Output for Last 24 Hours 04/03/25 04/04/25 04/05/25 23:59 23:59 23:59 Intake Total 713.88 / 713.88 1341.85 / 1341.85 Output Total 350 / 350 100 / 100 400 / 400 Balance 363.88 / 363.88 1241.85 / 1241.85 -400 / -400 Lab / Micro Data 04/05/25 02:45 04/05/25 09:06 Labs: Laboratory Results - last 24 hr 04/04/25 00:00: Troponin T Hi Sens 2 Hr 2263 H* 04/04/25 13:45: Sodium 134, Potassium 5.4 H, Chloride 101, Carbon Dioxide 17.2 L, Anion Gap 17 H, BUN 77 H, Creatinine 3.74 H, Estim Creat Clear Calc 13.61 L, Est GFR (MDRD) Non-Af 16 L, BUN/Creatinine Ratio 20.5 H, Glucose 226 H, Calcium 8.6 04/04/25 14:26: Urine Creatinine 138.00, Urine Urea Nitrogen 406 04/04/25 16:39: POC Glucose 307 H 04/04/25 21:36: POC Glucose 355 H 04/04/25 21:59: Troponin T High Sens 2204 H* D 04/05/25 02:45: WBC 20.4 H, RBC 2.77 L, Hgb 8.3 L, Hct 25.6 L, MCV 92.4, MCH 30.0, MCHC 32.4, RDW Std Deviation 46.6 H, RDW Coeff of Humaira 13.8, Plt Count 255,MPV 11.7, Immature Gran % (Auto) 1.000 H, Neut % (Auto) 85.5 H, Lymph % (Auto) 5.7 L, Ada % (Auto) 7.7, Eos % (Auto) 0.0, Baso % (Auto) 0.1, Absolute Neuts (auto) 17.4 H, Absolute Lymphs (auto) 1.16, Nucleated RBC % 0, Differential Comment SCANNED, Troponin T Hi Sens 4Hr 2425 H* 04/05/25 06:26: POC Glucose 253 H 04/05/25 09:06: Sodium 136, Potassium 6.3 H*, Chloride 102, Carbon Dioxide 15.8 L, Anion Gap 18 H, BUN 96 H, Creatinine 4.68 H, Estim Creat Clear Calc 10.87 L, Est GFR (MDRD) Non-Af 12 L, BUN/Creatinine Ratio 20.5 H, Glucose 223 H, Calcium 8.1 Micro: Microbiology 04/03/25 02:25 Blood Culture (Wb) - Anticubital Left Blood Culture - Preliminary No growth in 48 hours. 04/03/25 03:50 Blood Culture (Wb) - Anticubital Left Blood Culture - Preliminary No growth in 48 hours. 04/03/25 05:51 Urine, Clean Catch Urine Culture - Final Culture exhibits no growth. 04/03/25 05:46 Wound - Elbow Skin and Soft Tissue MRSA/MSSA (PCR - Final 04/03/25 05:10 Mucosa - Nasopharyngeal Respiratory Panel (PCR) - Final 04/03/25 05:51 Urine, Clean Catch Legionella Antigen - Final 04/03/25 05:51 Urine Catheter - Catheter Streptococcus pneumoniae Antigen (M- Final 04/03/25 00:25 Mucosa - Nose SARS-CoV-2, Influenza & RSV (PCR) - Final Radiography Diagnostic Testing: Radiology Impression Renal Ultrasound 04/04/25 11:33 IMPRESSION: 1. Mild renal cortical thinning bilaterally. No hydronephrosis. 2. Nonobstructing stone in the left kidney measuring 0.5 cm, unchanged. 3. Prostatomegaly with an echogenic nodule measuring 1.9 cm, similar to prior. Correlate with PSA. Reading Location: [id number] Rhythm Strip Rhythm Strip: Sinus Rhythm Rate: 86 Physical Exam Const alert and oriented x3 Constitutional Narrative: on BIPAP this morning, looks anxious General Appearance: cooperative HEENT normocephalic, moist oral mucous membranes, oropharynx normal and gingiva normal Eyes PERRL and EOMs intact bilaterally Neck no lymphadenopathy and supple Lymph Lymphatic: no lymphadenopathy noted and no lymphedema noted Resp Resp Narrative: moderately diminished breath sounds bilaterally, on BIPAP. tachypneic at time of review, no wheezesor crackles. Effort and Inspection: tachypneic Cardio regular rate, regular rhythm, S1 normal heart sound, S2 normal heart sound and no murmurs GI normal to inspection, nondistended, normoactive bowel sounds, soft to palpation and non-tender Extremity normal capillary refill, no clubbing, cyanosis or edema and no calf tenderness General Extremity: no tenderness to palpation of joints or extremities Skin General Skin Exam: no breakdown Neuro CN's II-XII intact bilaterally, no focal motor deficits and no sensory deficits noted Motor Exam: general weakness Psych thought process normal and cooperative Appearance: appropriate Assessment & Plan Assessment/Plan (1) Acute hypoxic respiratory failure: PLAN: Plan #Acute hypoxic respiratory failure due to acute on chronic COPD examination and probable heart failure as well as superimposed pneumonia * back on BIPAP this morning due to worsening shortness of breath. * sputum cultures pending. Urine for strep and legionella negative. Respiratory panel negative. * breathing treatment with bronchodilators. Titrate oxygen to maintain sats >90% * critical care on board. * 2D echo ordered showed EF of 40% with LV hypokinesis and stage I diastolic dysfunction and RVSP of 41mmHg. * cardiology consulted. Per cardiology he had a cardiac cath 2 years ago at [facility] and was told he had 2 blockages which were not amenable to revascularization. Records requested from [facility]. Further management as per cardiology. * #Elevated cardiac enzymes: * initial troponin was 58, and only peaked at 76. 2D echo as above. * Further records requested from [facility] as above * cardiology on board * #MADONNA on CKD III with hyperkalemia * Cr trended up further to 4.63 today. Potassium is also elevated at 6.3 * lasix and lisinopril on hold. Potassium also held * Osborne catheter in situ. Patient given hyperkalemia protocol and also given Kayexalate. * Nephrology started patient on sodium bicarb this morning also. Patient counseled that if these measures do not help then he will need to start temporary dialysis. * will repeat BMP after kayexalate to monitor potassium * EKG: #Leukocytosis: WBCs at 20 today, down from 22 yesterday. Likely due to IV steroid she is receiving.Will monitor.. Switch to PO prednisone. #Type 2 diabetes mellitus: on lantus. ISS. Accuchecks ACHS #Hyperlipidemia: on ezetimibe #Nicotine dependence: counseled to quit. Nicotine patch prn. DVT prophylaxis: heparin sq. Charges/Coding Visit Charges Inpatient E&M: 19209 Subs Hosp L3 04/05/25 1719 Grace Arnold MD Cosigner Signature (if applicable): CC: ~ Signed [facility]06-05-2025 Progress note Author Barbie Martin [facility] Note Date/Time April 05, 2025 3:10p m [facility] Medical Records Department [address] [place] [address] Progress Note - Cardiology 04/05/25 1459 MR#: [id number] Acct: [id number] Name: ENOC ARMANDO Rep #:[id number] : 1945 79 From: Barbie gibson MD PCP: Dr. Ryley Jeter MD Status:ADM IN Location: [place] [address] Subjective Subjective Patient denies any chest pain. He says his breathing is better as well. He is more bothered by frequent bowel movement due to Kayexalate which was given due to hyperkalemia. Objective Data Vital Signs: Vital Signs Temp Pulse Resp BP Pulse Ox O2 Del Method O2 Flow Rate 97.6 F L 76 14 98/43 L 96 Bi-pap 5 04/05/25 13:22 04/05/25 14:40 04/05/25 14:40 04/05/25 14:40 04/05/25 14:40 04/05/25 14:40 04/05/25 13:22 FiO2 25 04/05/25 12:10 Oxygen Flow Rate (L/min) 5 Oxygen Delivery Method Bi-pap Weight: 136 lb 14.513 oz Body Mass Index (BMI) 21.4 Intake & Output: Intake and Output for Last 24 Hours 04/03/25 04/04/25 04/05/25 23:59 23:59 23:59 Intake Total 713.88 / 713.88 1341.85 / 1341.85 240 / 240 Output Total 350 / 350 100 / 100 600 / 600 Balance 363.88 / 363.88 1241.85 / 1241.85 -360 / -360 Lab / Micro Data 04/05/25 02:45 04/05/25 13:44 Labs: Laboratory Results - last 24 hr 04/04/25 00:00: Troponin T Hi Sens 2 Hr 2263 H* 04/04/25 14:26: Urine Creatinine 138.00, Urine Urea Nitrogen 406 04/04/25 16:39: POC Glucose 307 H 04/04/25 21:36: POC Glucose 355 H 04/04/25 21:59: Troponin T High Sens 2204 H* D 04/05/25 02:45: WBC 20.4 H, RBC 2.77 L, Hgb 8.3 L, Hct 25.6 L, MCV 92.4, MCH 30.0, MCHC 32.4, RDW Std Deviation 46.6 H, RDW Coeff of Humaira 13.8, Plt Count 255,MPV 11.7, Immature Gran % (Auto) 1.000 H, Neut % (Auto) 85.5 H, Lymph % (Auto) 5.7 L, Ada % (Auto) 7.7, Eos % (Auto) 0.0, Baso % (Auto) 0.1, Absolute Neuts (auto) 17.4 H, Absolute Lymphs (auto) 1.16, Nucleated RBC % 0, Differential Comment SCANNED, Troponin T Hi Sens 4Hr 2425 H* 04/05/25 06:26: POC Glucose 253 H 04/05/25 07:39: POC Glucose 263 H 04/05/25 09:06: Sodium 136, Potassium 6.3 H*, Chloride 102, Carbon Dioxide 15.8 L, Anion Gap 18 H, BUN 96 H, Creatinine 4.68 H, Estim Creat Clear Calc 10.87 L, Est GFR (MDRD) Non-Af 12 L, BUN/Creatinine Ratio 20.5 H, Glucose 223 H, Calcium 8.1 04/05/25 13:14: Urine Color Yellow, Urine Clarity Sl. Cloudy, Urine pH 5.0, Ur Specific Tarrs 1.020, Urine Protein 100 H, Urine Glucose (UA) Normal, Urine Ketones Negative, Urine Occult Blood 250 H, Urine Nitrite Negative, Urine Bilirubin 1 H, Urine Urobilinogen Normal, Ur Leukocyte Esterase 500 H, Urine RBC> 100 SEEN, Urine WBC 5-10 SEEN, Ur Squamous Epith Cells 0 SEEN, Urine Bacteria 0 SEEN, Urine Mucus 0 SEEN 04/05/25 13:17: POC Glucose 226 H Micro: Microbiology 04/03/25 02:25 Blood Culture (Wb) - Anticubital Left Blood Culture - Preliminary No growth in 48 hours. 04/03/25 03:50 Blood Culture (Wb) - Anticubital Left Blood Culture - Preliminary No growth in 48 hours. 04/03/25 05:51 Urine, Clean Catch Urine Culture - Final Culture exhibits no growth. Rhythm Strip Rhythm Strip: Sinus Rhythm Rate: 86 Cardiology Labs/Tests 04/05/25 02:45: WBC 20.4 H, RBC 2.77 L, Hgb 8.3 L, Hct 25.6 L, MCV 92.4, MCH 30.0, MCHC 32.4, Plt Count 255, MPV 11.7, Immature Gran % (Auto) 1.000 H, Neut %(Auto) 85.5 H, Lymph % (Auto) 5.7 L, Ada % (Auto) 7.7, Eos % (Auto) 0.0, Baso %(Auto) 0.1, Absolute Neuts (auto) 17.4 H, Nucleated RBC % 0 04/05/25 09:06: Sodium 136, Potassium 6.3 H*, Chloride 102, Carbon Dioxide 15.8 L, Anion Gap 18 H, BUN 96 H, Creatinine 4.68 H, Est GFR (MDRD) Non-Af 12 L, BUN/Creatinine Ratio 20.5 H, Glucose 223 H, Calcium 8.1 04/05/25 13:14: Urine Color Yellow, Urine Clarity Sl. Cloudy, Urine pH 5.0, Ur Specific Tarrs 1.020, Urine Protein 100 H, Urine Glucose (UA) Normal, Urine Ketones Negative, Urine Occult Blood 250 H, Urine Nitrite Negative, Urine Bilirubin 1 H, Urine Urobilinogen Normal, Ur Leukocyte Esterase 500 H, Urine RBC> 100 SEEN, Urine WBC 5-10 SEEN Rhythm: EKG: ECHO: Stress Test: Cardiac Cath: PCI: CT Surgery: Holter monitor: EPS: PPM: CXR: Chest CT Scan: Radiography Diagnostic Testing: Radiology Impression Renal Ultrasound 04/04/25 11:33 IMPRESSION: 1. Mild renal cortical thinning bilaterally. No hydronephrosis. 2. Nonobstructing stone in the left kidney measuring 0.5 cm, unchanged. 3. Prostatomegaly with an echogenic nodule measuring 1.9 cm, similar to prior. Correlate with PSA. Reading Location: [facility] Physical Exam Const alert HEENT normocephalic Eyes no scleral icterus Resp normal respiratory effort Cardio regular rate and regular rhythm Extremity no pedal edema Assessment & Plan Assessment/Plan (1) LV dysfunction: PLAN: The patient carries a history of eject fraction of 40% by echo this admission. He was told his heart muscle did not function normally had a catheterization within the last 2 years at [facility]. He also had 2 blockages that were not amenable to revascularization. The patient denies any anginal symptoms. He has no lower extremity edema he has no JVD at 90 degrees. His creatinine is slowly climbing and this may suggest that he is relatively intravascularly depleted. Agree with holding his diuretic therapy for the time being. Agree with the other current medical regiment for his LV dysfunction with his hydralazine. (2) CKD (chronic kidney disease), stage III: QUALIFIERS: Chronic kidney disease stage 3 subtype: stage 3b (GFR 30-44) Qualified Code(s): N18.32 - Chronic kidney disease, stage 3b PLAN: Creatinine continues to climb. Further management per the primary service. It does not appear that his LV ejection fraction of 40% would be the sole etiology of this decline in his renal function. (3) HTN (hypertension): QUALIFIERS: Hypertension type: primary hypertension Qualified Code(s): I10 - Essential (primary) hypertension PLAN: Blood pressure is adequately controlled on his current medical therapy. (4) Anemia: QUALIFIERS: Anemia type: unspecified type Qualified Code(s): D64.9 - Anemia, unspecified PLAN: Will defer to the primary service. (5) Bradycardia: PLAN: Patient had episodes of bradycardia and was also found to be significantlyhypokalemic. He was given Kayexalate and has not had any significant bradycardia in the last few hours. (6) Non-STEMI (non-ST elevated myocardial infarction): PLAN: Patient gives history of known CAD that could not be revascularized. He denies any chest pain at this time. Appears comfortable. Patient has acute kidney injury. Would not recommend invasive therapy at this time. Elevated troponin could be multifactorial in etiology due to hypoxia in the setting of underlying CAD that could not be revascularized, LV dysfunction etc. Continue current medical therapy. PLAN: Plan 1. Agree with continuing the current medical plan. 2. Once the patient is discharged if he wishes to follow-up with cardiology, hehas not in the past, would be willing to see him in the [place] in 7to 10 days after discharge. Charges/Coding Visit Charges Inpatient E&M: 42865 Subs Hosp L2 04/05/25 1510 <Electronically signed by Barbie Martin MD> Cosigner Signature (if applicable): CC: ~ Signed [facility] Work Phone: [phone] Progress note [facility] Medical Records Department [address] [place] [address] Progress Note - Nephrology 04/05/25 1518 MR#: [id number] Acct: [id number] Name: ENOC ARMANDO Rep #:[id number] : 1945 79 From: Denisha tirado MD PCP: Dr. Ryley Jeter MD Status:ADM IN Location: [place] [address] Subjective Subjective he is on bipap Objective Data Objective Data Vital Signs: Vital Signs Temp Pulse Resp BP Pulse Ox O2 Del Method O2 Flow Rate 97.6 F L 76 14 98/43 L 98 Nasal Cannula 4 04/05/25 13:22 04/05/25 14:40 04/05/25 14:40 04/05/25 14:40 04/05/25 15:03 04/05/25 15:03 04/05/25 15:03 FiO2 25 04/05/25 12:10 Oxygen Flow Rate (L/min) 4 Oxygen Delivery Method Nasal Cannula Weight: 62.1 kg Body Mass Index (BMI) 21.4 Intake & Output: Intake and Output for Last 24 Hours 04/03/25 04/04/25 04/05/25 23:59 23:59 23:59 Intake Total 713.88 / 713.88 1341.85 / 1341.85 480 / 480 Output Total 350 / 350 100 / 100 600 / 600 Balance 363.88 / 363.88 1241.85 / 1241.85 -120 / -120 Lab / Micro Data 04/05/25 02:45 04/05/25 13:44 Labs: Laboratory Results - last 24 hr 04/04/25 00:00: Troponin T Hi Sens 2 Hr 2263 H* 04/04/25 14:26: Urine Creatinine 138.00, Urine Urea Nitrogen 406 04/04/25 16:39: POC Glucose 307 H 04/04/25 21:36: POC Glucose 355 H 04/04/25 21:59: Troponin T High Sens 2204 H* D 04/05/25 02:45: WBC 20.4 H, RBC 2.77 L, Hgb 8.3 L, Hct 25.6 L, MCV 92.4, MCH 30.0, MCHC 32.4, RDW Std Deviation 46.6 H, RDW Coeff of Humaira 13.8, Plt Count 255,MPV 11.7, Immature Gran % (Auto) 1.000 H, Neut % (Auto) 85.5 H, Lymph % (Auto) 5.7 L, Ada % (Auto) 7.7, Eos % (Auto) 0.0, Baso % (Auto) 0.1, Absolute Neuts (auto) 17.4 H, Absolute Lymphs (auto) 1.16, Nucleated RBC % 0, Differential Comment SCANNED, Troponin T Hi Sens 4Hr 2425 H* 04/05/25 06:26: POC Glucose 253 H 04/05/25 07:39: POC Glucose 263 H 04/05/25 09:06: Sodium 136, Potassium 6.3 H*, Chloride 102, Carbon Dioxide 15.8 L, Anion Gap 18 H, BUN 96 H, Creatinine 4.68 H, Estim Creat Clear Calc 10.87 L, Est GFR (MDRD) Non-Af 12 L, BUN/Creatinine Ratio 20.5 H, Glucose 223 H, Calcium 8.1 04/05/25 13:14: Urine Color Yellow, Urine Clarity Sl. Cloudy, Urine pH 5.0, Ur Specific Tarrs 1.020, Urine Protein 100 H, Urine Glucose (UA) Normal, Urine Ketones Negative, Urine Occult Blood 250 H, Urine Nitrite Negative, Urine Bilirubin 1 H, Urine Urobilinogen Normal, Ur Leukocyte Esterase 500 H, Urine RBC> 100 SEEN, Urine WBC 5-10 SEEN, Ur Squamous Epith Cells 0 SEEN, Urine Bacteria 0 SEEN, Urine Mucus 0 SEEN 04/05/25 13:17: POC Glucose 226 H 04/05/25 13:44: Sodium 137, Potassium 5.7 H, Chloride 102, Carbon Dioxide 15.6 L, Anion Gap 19 H, BUN 99 H, Creatinine 4.77 H, Estim Creat Clear Calc 10.67 L, Est GFR (MDRD) Non-Af 12 L, BUN/Creatinine Ratio 20.8 H, Glucose 205 H, Calcium 8.9 Micro: Microbiology 04/03/25 02:25 Blood Culture (Wb) - Anticubital Left Blood Culture - Preliminary No growth in 48 hours. 04/03/25 03:50 Blood Culture (Wb) - Anticubital Left Blood Culture - Preliminary No growth in 48 hours. 04/03/25 05:51 Urine, Clean Catch Urine Culture - Final Culture exhibits no growth. 04/03/25 05:46 Wound - Elbow Skin and Soft Tissue MRSA/MSSA (PCR - Final 04/03/25 05:10 Mucosa - Nasopharyngeal Respiratory Panel (PCR) - Final 04/03/25 05:51 Urine, Clean Catch Legionella Antigen - Final 04/03/25 05:51 Urine Catheter - Catheter Streptococcus pneumoniae Antigen (M- Final 04/03/25 00:25 Mucosa - Nose SARS-CoV-2, Influenza & RSV (PCR) - Final Radiography Diagnostic Testing: Radiology Impression Renal Ultrasound 04/04/25 11:33 IMPRESSION: 1. Mild renal cortical thinning bilaterally. No hydronephrosis. 2. Nonobstructing stone in the left kidney measuring 0.5 cm, unchanged. 3. Prostatomegaly with an echogenic nodule measuring 1.9 cm, similar to prior. Correlate with PSA. Reading Location: [id number] Rhythm Strip Rhythm Strip: Sinus Rhythm Rate: 86 Physical Exam Narrative Alert and oriented x 3, no apparent distress S1, S2, RRR Diminished breath sounds. No rales or rhonchi. On O2 nasal cannula 3 to 4 L Abdomen soft, nontender, nondistended No edema External Osborne in place Assessment & Plan Assessment/Plan (1) MADONNA (acute kidney injury): (2) CKD (chronic kidney disease), stage III: QUALIFIERS: Chronic kidney disease stage 3 subtype: stage 3b (GFR 30-44) Qualified Code(s): N18.32 - Chronic kidney disease, stage 3b (3) Acute hypoxic respiratory failure: PLAN: Plan This is an 79-year-old male with past medical history significant for hypertension, CKD stage III (followed by Dr. Albert in [place]), COPD, diabetes mellitus admitted to the hospital for acute hypoxic respiratory failure, multifactorial from COPD and/or pneumonia and/or possible heart failure contri buting. Nephrology consulted in view of elevated creatinine. Baseline creatinine is around 1.8 mg/dL range. Creatinine was 1.8 on admission received contrast on admit Renal US no hydronephrosis UA ordered This morning worsening renal function, hyperkalemia. dw hospitaalist. medical treatment given. lasix 80 mg given. did not respond much. only about 200 cc of urine. presumably MADONNA due to contrast nephropathy vs ATN start low dose bicarbonate drip due to lack of urine output and worsening renal failure needs temporary dialysis 04/05/25 1520 Cosigner Signature (if applicable): CC: ~ Signed [facility]06-05-2025 Progress note [facility] Medical Records Department [address] [place] [address] Progress Note - Cardiology 04/05/25 5066 MR#: [id number] Acct: [id number] Name: ENOC ARMANDO Rep #:[id number] : 1945 79 From: Barbie gibson MD PCP: Dr. Ryley Jeter MD Status:ADM IN Location: [place] [address] Subjective Subjective Patient denies any chest pain. He says his breathing is better as well. He is more bothered by frequent bowel movement due to Kayexalate which was given due to hyperkalemia. Objective Data Vital Signs: Vital Signs Temp Pulse Resp BP Pulse Ox O2 Del Method O2 Flow Rate 97.6 F L 76 14 98/43 L 96 Bi-pap 5 04/05/25 13:22 04/05/25 14:40 04/05/25 14:40 04/05/25 14:40 04/05/25 14:40 04/05/25 14:40 04/05/25 13:22 FiO2 04/05/25 12:10 Oxygen Flow Rate (L/min) 5 Oxygen Delivery Method Bi-pap Weight: 136 lb 14.513 oz Body Mass Index (BMI) 21.4 Intake & Output: Intake and Output for Last 24 Hours 04/03/25 04/04/25 04/05/25 23:59 23:59 23:59 Intake Total 713.88 / 713.88 1341.85 / 1341.85 240 / 240 Output Total 350 / 350 100 / 100 600 / 600 Balance 363.88 / 363.88 1241.85 / 1241.85 -360 / -360 Lab / Micro Data 04/05/25 02:45 04/05/25 13:44 Labs: Laboratory Results - last 24 hr 04/04/25 00:00: Troponin T Hi Sens 2 Hr 2263 H* 04/04/25 14:26: Urine Creatinine 138.00, Urine Urea Nitrogen 406 04/04/25 16:39: POC Glucose 307 H 04/04/25 21:36: POC Glucose 355 H 04/04/25 21:59: Troponin T High Sens 2204 H* D 04/05/25 02:45: WBC 20.4 H, RBC 2.77 L, Hgb 8.3 L, Hct 25.6 L, MCV 92.4, MCH 30.0, MCHC 32.4, RDW Std Deviation 46.6 H, RDW Coeff of Humaira 13.8, Plt Count 255,MPV 11.7, Immature Gran % (Auto) 1.000 H, Neut % (Auto) 85.5 H, Lymph % (Auto) 5.7 L, Ada % (Auto) 7.7, Eos % (Auto) 0.0, Baso % (Auto) 0.1, Absolute Neuts (auto) 17.4 H, Absolute Lymphs (auto) 1.16, Nucleated RBC % 0, Differential Comment SCANNED, Troponin T Hi Sens 4Hr 2425 H* 04/05/25 06:26: POC Glucose 253 H 04/05/25 07:39: POC Glucose 263 H 04/05/25 09:06: Sodium 136, Potassium 6.3 H*, Chloride 102, Carbon Dioxide 15.8 L, Anion Gap 18 H, BUN 96 H, Creatinine 4.68 H, Estim Creat Clear Calc 10.87 L, Est GFR (MDRD) Non-Af 12 L, BUN/Creatinine Ratio 20.5 H, Glucose 223 H, Calcium 8.1 04/05/25 13:14: Urine Color Yellow, Urine Clarity Sl. Cloudy, Urine pH 5.0, Ur Specific Tarrs 1.020, Urine Protein 100 H, Urine Glucose (UA) Normal, Urine Ketones Negative, Urine Occult Blood 250 H, Urine Nitrite Negative, Urine Bilirubin 1 H, Urine Urobilinogen Normal, Ur Leukocyte Esterase 500 H, Urine RBC> 100 SEEN, Urine WBC 5-10 SEEN, Ur Squamous Epith Cells 0 SEEN, Urine Bacteria 0 SEEN, Urine Mucus 0 SEEN 04/05/25 13:17: POC Glucose 226 H Micro: Microbiology 04/03/25 02:25 Blood Culture (Wb) - Anticubital Left Blood Culture - Preliminary No growth in 48 hours. 04/03/25 03:50 Blood Culture (Wb) - Anticubital Left Blood Culture - Preliminary No growth in 48 hours. 04/03/25 05:51 Urine, Clean Catch Urine Culture - Final Culture exhibits no growth. Rhythm Strip Rhythm Strip: Sinus Rhythm Rate: 86 Cardiology Labs/Tests 04/05/25 02:45: WBC 20.4 H, RBC 2.77 L, Hgb 8.3 L, Hct 25.6 L, MCV 92.4, MCH 30.0, MCHC 32.4, Plt Count 255, MPV 11.7, Immature Gran % (Auto) 1.000 H, Neut %(Auto) 85.5 H, Lymph % (Auto) 5.7 L, Ada % (Auto) 7.7, Eos % (Auto) 0.0, Baso %(Auto) 0.1, Absolute Neuts (auto) 17.4 H, Nucleated RBC % 0 04/05/25 09:06: Sodium 136, Potassium 6.3 H*, Chloride 102, Carbon Dioxide 15.8 L, Anion Gap 18 H, BUN 96 H, Creatinine 4.68 H, Est GFR (MDRD) Non-Af 12 L, BUN/Creatinine Ratio 20.5 H, Glucose 223 H,Calcium 8.1 04/05/25 13:14: Urine Color Yellow, Urine Clarity Sl. Cloudy, Urine pH 5.0, Ur Specific Tarrs 1.020, Urine Protein 100 H, Urine Glucose (UA) Normal, Urine Ketones Negative, Urine Occult Blood 250 H, Urine Nitrite Negative, Urine Bilirubin 1 H, Urine Urobilinogen Normal, Ur Leukocyte Esterase 500 H, Urine RBC> 100 SEEN, Urine WBC 5-10 SEEN Rhythm: EKG: ECHO: Stress Test: Cardiac Cath: PCI: CT Surgery: Holter monitor: EPS: PPM: CXR: Chest CT Scan: Radiography Diagnostic Testing: Radiology Impression Renal Ultrasound 04/04/25 11:33 IMPRESSION: 1. Mild renal cortical thinning bilaterally. No hydronephrosis. 2. Nonobstructing stone in the left kidney measuring 0.5 cm, unchanged. 3. Prostatomegaly with an echogenic nodule measuring 1.9 cm, similar to prior. Correlate with PSA. Reading Location: [facility] Physical Exam Const alert HEENT normocephalic Eyes no scleral icterus Resp normal respiratory effort Cardio regular rate and regular rhythm Extremity no pedal edema Assessment & Plan Assessment/Plan (1) LV dysfunction: PLAN: The patient carries a history of eject fraction of 40% by echo this admission. He was told his heart muscle did not function normally had a catheterization within the last 2 years at [facility].He also had 2 blockages that were not amenable to revascularization. The patient denies any anginal symptoms. He has no lower extremity edema he has no JVD at 90 degrees. His creatinine is slowly climbing and this may suggest that he is relatively intravascularly depleted. Agree with holding his diuretic therapy for the time being. Agree with the other current medical regiment for his LV dysfunction with his hydralazine. (2) CKD (chronic kidney disease), stage III: QUALIFIERS: Chronic kidney disease stage 3 subtype: stage 3b (GFR 30-44) Qualified Code(s): N18.32 - Chronic kidney disease, stage 3b PLAN: Creatinine continues to climb. Further management per the primary service. It does not appearthat his LV ejection fraction of 40% would be the sole etiology of this decline in his renal function. (3) HTN (hypertension): QUALIFIERS: Hypertension type: primary hypertension Qualified Code(s): I10 - Essential (primary) hypertension PLAN: Blood pressure is adequately controlled on his current medical therapy. (4) Anemia: QUALIFIERS: Anemia type: unspecified type Qualified Code(s): D64.9 - Anemia, unspecified PLAN: Will defer to the primary service. (5) Bradycardia: PLAN: Patient had episodes of bradycardia and was also found to be significantlyhypokalemic. He wasgiven Kayexalate and has not had any significant bradycardia in the last few hours. (6) Non-STEMI (non-ST elevated myocardial infarction): PLAN: Patient gives history of known CAD that could not be revascularized. He denies any chest painat this time. Appears comfortable. Patient has acute kidney injury. Would not recommend invasive therapy at this time. Elevated troponin could be multifactorial in etiology due to hypoxia in the setting of underlying CAD that could not be revascularized, LV dysfunction etc. Continue current medicaltherapy. PLAN: Plan 1. Agree with continuing the current medical plan. 2. Once the patient is discharged if he wishes to follow-up with cardiology, hehas not in the past,would be willing to see him in the [facility] in 7to 10 days after discharge. Charges/Coding Visit Charges Inpatient E&M: 67624 Subs Hosp L2 04/05/25 1510 Cosigner Signature (if applicable): CC: ~ Signed [facility]06-05-2025 Consult note Author Kalani Gonzalez [facility] Note Date/Time April 05, 2025 10:03 am [facility] Medical Records Department [address] [place] [address] Consultation - Nephrology 04/04/25 1518 MR#: [id number] Acct: [id number] Name: ENOC ARMANDO Rep #:[id number] : 1945 79 From: Kalani arreola NP-C PCP: Dr. Ryley Jeter MD Status:ADM IN Location: [place] [address] Assessment & Plan Assessment/Plan (1) MADONNA (acute kidney injury): (2) CKD (chronic kidney disease), stage III: QUALIFIERS: Chronic kidney disease stage 3 subtype: stage 3b (GFR 30-44) Qualified Code(s): N18.32 - Chronic kidney disease, stage 3b (3) Acute hypoxic respiratory failure: PLAN: Plan This is an 79-year-old male with past medical history significant for hypertension, CKD stage III (followed by Dr. Albert in [place]), COPD, diabetes mellitus admitted to the hospital for acute hypoxic respiratory failure, multifactorial from COPD and/or pneumonia and/or possible heart failure contributing. Nephrology consulted in view of elevated creatinine. Baseline creatinine is around 1.8 mg/dL range. Creatinine was 1.8 on admission and todaycreatinine 3.3. Potassium is 5.0, bicarb 17. Patient had been on insulin drip as glucose was 638. He is now off insulin drip and IV fluids. Lasix has been stopped in view of elevated creatinine. For now we will monitor kidney functionwithout diuretics and or IV fluids. Patient appears near euvolemic on exam. Respiratory status improved, no lower extremity edema. Renal ultrasound orderedand result is pending. Patient did have bladder scan postvoid which showed around 300 mL of urine in bladder, he is declining Osborne placement. Patient hasbeen seen by cardiology. Patient had echo this admission EF 40%, stage I diastolic dysfunction. Blood pressure 206/80 on admission, patient had episodesof hypotension with may be contributing to MADONNA, he also had CT of chest with contrast on admission. Lisinopril and Lasix on hold today. At this time there is no acute indication for renal placement therapy. Labs have been ordered for the morning. Further orders forthcoming as hospitalization evolves, thank you for allowing us to participate in the care of Mr. Armando. Assessment and plan reviewed with Dr. Thompson. HPI Consult Data Date of Consult: 04/04/25 HPI Narrative HPI Narrative: ENOC ARMANDO, is a 79 M with past medical history significant for hypertension, hyperlipidemia, BPH, diabetes mellitus type 2, COPD who presented to the emergency room on April 03 with complaints of difficulty breathing. Patient had CTA of chest in the emergency room showed mild bilateral pleural effusions, consolidation, possible pneumonia, patient was admitted to ICU on BiPAP. Upon presentation patient did receive Rocephin, azithromycin, Lasix. Nephrology consulted in view of elevated creatinine. Patient reports that he has been following with Dr. Ayanna Albert, leaf coverer in [place] for history of CKD. Baseline creatinine has been around 1.8 mg/dL range. Patient denies any new medications before hospitalization. Denies any recent nausea, vomiting or diarrhea. Denies any urinary habitus changes. No NSAIDs. REPLACED BY [facility] Medical History (Updated 04/04/25 @ 15:23 by AURY Davison) Chronic anemia Tobacco use COPD (chronic obstructive pulmonary disease) HLD (hyperlipidemia) HTN (hypertension) BPH (benign prostatic hyperplasia) Chronic low back pain with sciatica Diabetes mellitus, type 2 CKD (chronic kidney disease), stage III Pneumonia COVID Wears glasses Wears dentures Home Medications ?Medication ?Instructions ?Recorded ?Last Taken ?Type amlodipine 10 mg tablet (Norvasc) 10 mg PO 1200 08/12/21 History aspirin 81 mg tablet,delayed 81 mg PO DAILY 08/05/21 U nknown History release insulin glargine 100 unit/mL (3 15 unit subcut QPM 03/21 Unknown History mL) subcutaneous pen (Lantus Solostar U-100 Insulin) insulin lispro 100 unit/mL 0 unit subcut TID SLIDING S JENNIFER 08/05/21 Unknown History subcutaneous pen tamsulosin 0.4 mg capsule (Flomax) 0.4 mg PO .COMPLEX urination 08/05/21 Unknown History ezetimibe 10 mg tablet 10 mg PO DAILY 04/06/24 Unkn own History lisinopril 5 mg tablet 5 mg PO DAILY 04/06/24 Unkno wn History metoprolol succinate 25 mg 25 mg PO DAILY 04/06/24 Unk nown History tablet,extended release 24 hr blood sugar diagnostic (Contour 09/12/24 Unknown Hist ory Next Test Strips) potassium chloride 20 mEq 20 meq PO BIDCM 30 days #60 tabs 09/14/24 Unknown Rx tablet,extended release(part/cryst) furosemide 40 mg tablet (Lasix) 40 mg PO DAILY 5 Unknown History hydralazine 50 mg tablet 50 mg PO Q8H 04/03/25 Unknow n History Allergy/AdvReac Type Severity Reaction Status Date / Time Corticosteroids AdvReac Other Verified 04/03/25 00:16 (Glucocorticoids) (steroids) Cfuytfw-MNG-TrW Reductase AdvReac Other Verified 04/03/25 00:16 Inhibitor (Owndauh-Xtj-Jsd Reductase Inhibitor) Family History Mother COPD (chronic obstructive pulmonary disease) Father CAD (coronary artery disease) Heart disease Surgical History Hx of cystoscopy Hx of colonoscopy Hx of left cataract extraction Hx of right cataract extraction Social History household members: spouse Smoking Status: Current every day smoker tobacco type: cigarettes alcohol intake: never substance use type: does not use ROS ROS Narrative As in HPI Physical Exam Narrative Alert and oriented x 3, no apparent distress S1, S2, RRR Diminished breath sounds. No rales or rhonchi. On O2 nasal cannula 3 to 4 L Abdomen soft, nontender, nondistended No edema External Osborne in place Lab / Micro Data 04/04/25 03:15 04/04/25 13:45 Labs: Laboratory Results - last 24 hr 04/03/25 13:54: POC Glucose > 500 H* 04/03/25 14:50: Sodium 133, Potassium 4.4, Chloride 98, Carbon Dioxide 13.6 L, Anion Gap 21 H, BUN 58 H, Creatinine 2.67 H, Estim Creat Clear Calc 18.87 L, Est GFR (MDRD) Non-Af 23 L, BUN/Creatinine Ratio 21.7 H, Glucose 638 H*, Calcium 8.6 04/03/25 14:51: POC Glucose > 500 H* 04/03/25 16:04: POC Glucose 496 H* 04/03/25 17:23: POC Glucose 454 H* 04/03/25 18:09: POC Glucose 363 H 04/03/25 18:50: Sodium 135, Potassium 4.3, Chloride 100, Carbon Dioxide 16.9 L, Anion Gap 18 H, BUN 62 H, Creatinine 2.73 H, Estim Creat Clear Calc 18.46 L, EstGFR (MDRD) Non-Af 23 L, BUN/Creatinine Ratio 22.9 H, Glucose 407 H, Calcium 9.0 04/03/25 18:58: POC Glucose 366 H 04/03/25 20:11: POC Glucose 317 H 04/03/25 21:27: POC Glucose 284 H 04/03/25 22:20: POC Glucose 250 H 04/03/25 23:10: Sodium 136, Potassium 4.5, Chloride 102, Carbon Dioxide 17.3 L, Anion Gap 16 H, BUN 66 H, Creatinine 3.02 H, Estim Creat Clear Calc 16.69 L, EstGFR (MDRD) Non-Af 20 L, BUN/Creatinine Ratio 21.7 H, Glucose 275 H, Calcium 8.5 04/03/25 23:12: POC Glucose 261 H 04/04/25 00:03: POC Glucose 235 H 04/04/25 01:02: POC Glucose 229 H 04/04/25 03:15: WBC 22.0 H, RBC 2.47 L, Hgb 7.4 L, Hct 22.8 L, MCV 92.3, MCH 30.0, MCHC 32.5, RDW Std Deviation 45.9 H, RDW Coeff of Humaira 13.6, Plt Count 230,MPV 11.4, Immature Gran % (Auto) 0.600, Neut % (Auto) 90.4 H, Lymph % (Auto) 4.9L, Ada % (Auto) 4.0, Eos % (Auto) 0.0, Baso % (Auto) 0.1, Absolute Neuts (auto)19.9 H, Absolute Lymphs (auto) 1.08, Nucleated RBC % 0, Sodium 136, Potassium 4.6, Chloride 103, Carbon Dioxide 17.8 L, Anion Gap 15, BUN 69 H, Creatinine 3.26 H, Estim Creat Clear Calc 15.61 L, Est GFR (MDRD) Non-Af 18 L, BUN/Creatinine Ratio 21.1 H, Glucose 203 H, Calcium 8.6 04/04/25 03:17: POC Glucose 174 H 04/04/25 04:12: POC Glucose 178 H 04/04/25 06:04: POC Glucose 183 H 04/04/25 06:50: Sodium 137, Potassium 5.0, Chloride 104, Carbon Dioxide 17.5 L, Anion Gap 15, BUN 70 H, Creatinine 3.34 H, Estim Creat Clear Calc 15.24 L, Est GFR (MDRD) Non-Af 18 L, BUN/Creatinine Ratio 21.0 H, Glucose 208 H, Calcium 8.7 04/04/25 07:44: POC Glucose 209 H 04/04/25 10:02: POC Glucose 164 H 04/04/25 13:45: Sodium 134, Potassium 5.4 H, Chloride 101, Carbon Dioxide 17.2 L, Anion Gap 17 H, BUN 77 H, Creatinine 3.74 H, Estim Creat Clear Calc 13.61 L, Est GFR (MDRD) Non-Af 16 L, BUN/Creatinine Ratio 20.5 H, Glucose 226 H, Calcium 8.6 Rhythm Strip Rhythm Strip: Sinus Rhythm Rate: 86 04/04/25 3334 <Electronically signed by Kalani Trzcinski [employer]ICIAN-C> Cosigner Signature (if applicable): 04/05/25 1003 <Electronically signed by Denisha Thompson MD> CC: Dr. Ryley Jeter MD~ Signed [facility] Work Phone: [phone]) 226-299006-05-2025 Progress note Author Landry Fagan [facility] Note Date/Time April 05, 2025 9:30a m [facility] Medical Records Department [address] [place] [address] Progress Note - Foil Stamp Operator 04/05/25 0819 MR#: [id number] Acct: [id number] Name: ENOC ARMANDO Rep #:[id number] : 1945 79 From: Landry Fagan DO PCP: Dr. Ryley Jeter MD Status:ADM IN Location: [place] [address] Assessment & Plan Assessment/Plan (1) Acute hypoxic respiratory failure: PLAN: Plan RECOMMENDATIONS: 1. Continue supplemental oxygen to maintain saturations at or above 90%. 2. Empiric BiPAP therapy with naps and nightly. 3. Continue empiric antimicrobials, bronchodilators and steroids. 4. The patient will undoubtedly need to follow-up in the pulmonary medicine clinic so that baseline PFTs can be obtained. 5. Smoking cessation is advisable. IMPRESSIONS: 1. Acute hypoxemic respiratory failure Clinical concern for multifactorial etiology with possible COPD exacerbation along with possible CHF contributing. The patient has an extensive tobacco abuse history, but has never been formally diagnosed with COPD. He does have evidence of bilateral pleural effusions along with questionable airspace disease, concerning for pneumonia. Accordingly, the patient will be continued on scheduled bronchodilators, antimicrobials and prednisone. Will defer additional medical optimization to cardiology, who is following. Ideally, the patient will need outpatient follow- up in the pulmonary medicine office after discharge so that baseline PFTs can be obtained. 2. Chronic tobacco dependency Tobacco cessation is strongly advised. Recommend outpatient pulmonary follow- upand PFTs. 3. Elevated troponin likely secondary to demand ischemia in the setting of #1 Continue current supportive care per cardiology recommendations. 4. History of diabetes mellitus/hypertension/hyperlipidemia/chronic kidney disease/BPH Complicates care, management, recovery and prognosis. Continue home medicationsas indicated. CODE STATUS: DNR CCA without intubation This note was generated with Dragon dictation software. It may contain incorrectwords, spelling, and punctuation that were not noted in checking the note beforesigning. Subjective Subjective The patient was seen and examined at the bedside this morning. Events from the last 24 hours have been reviewed. The patient is currently afebrile, hemodynamically stable and maintaining appropriate oxygen saturations on BiPAP. The patient had been on 3 L/min via nasal cannula. White blood cell count is elevated at 20,000 with a hemoglobin of 8.3 g/dL. Objective Data Objective Data The patient's most recent lab work, culture data and imaging studies have all been personally reviewed. Surface echocardiogram demonstrated an ejection fraction of 40% with stage I diastolic dysfunction and severe mitral annular calcification. Right ventricular systolic pressure was estimated to be 41 mmHg. Strep and urine Legionella antigens were negative. Respiratory viral panel wasnegative. Blood and urine cultures have not demonstrated any growth to date. Vital Signs: Vital Signs Temp Pulse Resp BP Pulse Ox O2 Del Method O2 Flow Rate 97.6 F L 95 20 H 98/53 L 95 Nasal Cannula 94 04/05/25 06:23 04/05/25 07:58 04/05/25 07:58 04/05/25 07:40 04/05/25 07:58 04/05/25 07:40 04/05/25 07:40 FiO2 35 04/05/25 07:58 Oxygen Flow Rate (L/min) 94 Oxygen Delivery Method Nasal Cannula Weight: 136 lb 14.513 oz Body Mass Index (BMI) 21.4 Intake & Output: Intake and Output for Last 24 Hours 04/03/25 04/04/25 04/05/25 23:59 23:59 23:59 Intake Total 713.88 / 713.88 1341.85 / 1341.85 Output Total 350 / 350 100 / 100 400 / 400 Balance 363.88 / 363.88 1241.85 / 1241.85 -400 / -400 Lab / Micro Data Attestation: I reviewed the patient's lab results. 04/05/25 02:45 04/04/25 13:45 Labs: Laboratory Results - last 24 hr 04/04/25 00:00: Troponin T Hi Sens 2 Hr 2263 H* 04/04/25 01:02: POC Glucose 229 H 04/04/25 03:17: POC Glucose 174 H 04/04/25 04:12: POC Glucose 178 H 04/04/25 06:04: POC Glucose 183 H 04/04/25 07:44: POC Glucose 209 H 04/04/25 10:02: POC Glucose 164 H 04/04/25 13:45: Sodium 134, Potassium 5.4 H, Chloride 101, Carbon Dioxide 17.2 L, Anion Gap 17 H, BUN 77 H, Creatinine 3.74 H, Estim Creat Clear Calc 13.61 L, Est GFR (MDRD) Non-Af 16 L, BUN/Creatinine Ratio 20.5 H, Glucose 226 H, Calcium 8.6 04/04/25 14:26: Urine Creatinine 138.00, Urine Urea Nitrogen 406 04/04/25 16:39: POC Glucose 307 H 04/04/25 21:36: POC Glucose 355 H 04/04/25 21:59: Troponin T High Sens 2204 H* D 04/05/25 02:45: WBC 20.4 H, RBC 2.77 L, Hgb 8.3 L, Hct 25.6 L, MCV 92.4, MCH 30.0, MCHC 32.4, RDW Std Deviation 46.6 H, RDW Coeff of Humaira 13.8, Plt Count 255,MPV 11.7, Immature Gran % (Auto) 1.000 H, Neut % (Auto) 85.5 H, Lymph % (Auto) 5.7 L, Ada % (Auto) 7.7, Eos % (Auto) 0.0, Baso % (Auto) 0.1, Absolute Neuts (auto) 17.4 H, Absolute Lymphs (auto) 1.16, Nucleated RBC % 0, Differential Comment SCANNED, Troponin T Hi Sens 4Hr 2425 H* 04/05/25 06:26: POC Glucose 253 H Micro: Microbiology 04/03/25 05:46 Wound - Elbow Skin and Soft Tissue MRSA/MSSA (PCR - Final 04/03/25 05:10 Mucosa - Nasopharyngeal Respiratory Panel (PCR) - Final 04/03/25 05:51 Urine, Clean Catch Legionella Antigen - Final 04/03/25 05:51 Urine Catheter - Catheter Streptococcus pneumoniae Antigen (M- Final 04/03/25 00:25 Mucosa - Nose SARS-CoV-2, Influenza & RSV (PCR) - Final Radiography Diagnostic Testing: Radiology Impression Renal Ultrasound 04/04/25 11:33 IMPRESSION: 1. Mild renal cortical thinning bilaterally. No hydronephrosis. 2. Nonobstructing stone in the left kidney measuring 0.5 cm, unchanged. 3. Prostatomegaly with an echogenic nodule measuring 1.9 cm, similar to prior. Correlate with PSA. Reading Location: [facility] Rhythm Strip Rhythm Strip: Sinus Rhythm Rate: 86 Physical Exam Const alert, oriented x3 and no apparent distress Constitutional Narrative: is present at the bedside. HEENT normocephalic, head/scalp atraumatic and moist oral mucous membranes Eyes PERRL, EOMs intact bilaterally and conjunctivae normal Neck supple General: trachea midline Chest inspection of chest normal Resp normal respiratory effort and no use of accessory muscles Auscultation: rales and diminished lung sounds Cardio regular rate, S1 normal heart sound and S2 normal heart sound GI normal to inspection, nondistended, normoactive bowel sounds Extremity no clubbing, cyanosis or edema Skin Skin Narrative: Wrapped lower extremities. Neuro CN's II-XII intact bilaterally, moves all extremities and no focal motor deficits Psych cooperative and affect normal Charges/Coding Visit Charges Inpatient E&M: 98301 Subs Hosp L2 04/05/25 0930 <Electronically signed by Landry Fagan DO> Cosigner Signature (if applicable): CC: ~ Signed [facility] Work Phone: [phone]) [phone] Consult note [facility] Medical Records Department [address] [place] [id number] Consultation - Nephrology 04/04/25 1518 MR#: [id number] Acct: [id number] Name: ENOC ARMANDO Rep #:[id number] : 1945 79 From: Kalani arreola [employer] E[employer]RICIAN-C PCP: Dr. Ryley Jeter MD Status:ADM IN Location: [place] [id number]- Assessment & Plan Assessment/Plan (1) MADONNA (acute kidney injury): (2) CKD (chronic kidney disease), stage III: QUALIFIERS: Chronic kidney disease stage 3 subtype: stage 3b (GFR 30-44) Qualified Code(s): N18.32 - Chronic kidney disease, stage 3b (3) Acute hypoxic respiratory failure: PLAN: Plan This is an 79-year-old male with past medical history significant for hypertension, CKD stage III (followed by Dr. Albert in [place]), COPD, diabetes mellitus admitted to the hospital for acute hypoxic respiratory failure, multifactorial from COPD and/or pneumonia and/or possible heart failure contri buting. Nephrology consulted in view of elevated creatinine. Baseline creatinine is around 1.8 mg/dL range. Creatinine was 1.8 on admission and todaycreatinine 3.3. Potassium is 5.0, bicarb 17. Patient had been on insulin drip as glucose was 638. He is now off insulin drip and IV fluids. Lasix has been stopped in view of elevated creatinine. For now we will monitor kidney functionwithout diuretics and or IV fluids. Patient appears near euvolemic on exam. Respiratory status improved, no lower extremity edema. Renal ultrasound orderedand result is pending. Patient did have bladder scan postvoidwhich showed around 300 mL of urine in bladder, he is declining Osborne placement. Patient hasbeen seen by cardiology. Patient had echo this admission EF 40%, stage I diastolic dysfunction. Blood pressure 206/80 on admission, patient had episodesof hypotension with may be contributing to MADONNA, he alsohad CT of chest with contrast on admission. Lisinopril and Lasix on hold today. At this time there is no acute indication for renal placement therapy. Labs have been ordered for the morning. Further orders forthcoming as hospitalization evolves, thank you for allowing us to participate in the care of Mr. Armando. Assessment and plan reviewed with Dr. Thompson. HPI Consult Data Date of Consult: 04/04/25 HPI Narrative HPI Narrative: ENOC ARMANDO, is a 79 M with past medical history significant for hypertension, hyperlipidemia, BPH, diabetes mellitus type 2, COPD who presented to the emergency room on April 03 with complaints of difficulty breathing. Patient had CTA of chest in the emergency room showed mild bilateral pleural effusions, consolidation, possible pneumonia, patient was admitted to ICU on BiPAP. Upon presentation patient did receive Rocephin, azithromycin, Lasix. Nephrology consulted in view of elevated creatinine. Patient reports that he has been following with Dr. Ayanna Albert, leaf coverer in [place] for history of CKD. Baseline creatinine has been around 1.8 mg/dL range. Patient denies any new medications before hospitalization. Denies any recent nausea, vomiting or diarrhea. Denies any urinary habitus changes. No NSAIDs. REPLACED BY [facility] Medical History (Updated 04/04/25 @ 15:23 by AURY Davison) Chronic anemia Tobacco use COPD (chronic obstructive pulmonary disease) HLD (hyperlipidemia) HTN (hypertension) BPH (benign prostatic hyperplasia) Chronic low back pain with sciatica Diabetes mellitus, type 2 CKD (chronic kidney disease), stage III Pneumonia COVID Wears glasses Wears dentures Home Medications ?Medication ?Instructions ?Recorded ?Last Taken ?Type amlodipine 10 mg tablet (Norvasc) 10 mg PO 1200 08/12/21 History aspirin 81 mg tablet,delayed 81 mg PO DAILY 08/05/21 U nknown History release insulin glargine 100 unit/mL (3 15 unit subcut QPM 03/21 Unknown History mL) subcutaneous pen (Lantus Solostar U-100 Insulin) insulin lispro 100 unit/mL 0 unit subcut TID SLIDING S JENNIFER 08/05/21 Unknown History subcutaneous pen tamsulosin 0.4 mg capsule (Flomax) 0.4 mg PO .COMPLEX urination 08/05/21 Unknown History ezetimibe 10 mg tablet 10 mg PO DAILY 04/06/24 Unkn own History lisinopril 5 mg tablet 5 mg PO DAILY 04/06/24 Unkno wn History metoprolol succinate 25 mg 25 mg PO DAILY 04/06/24 Unk nown History tablet,extended release 24 hr blood sugar diagnostic (Contour 09/12/24 Unknown Hist ory Next Test Strips) potassium chloride 20 mEq 20 meq PO BIDCM 30 days #60 tabs 09/14/24 Unknown Rx tablet,extended release(part/cryst) furosemide 40 mg tablet (Lasix) 40 mg PO DAILY 5 Unknown History hydralazine 50 mg tablet 50 mg PO Q8H 04/03/25 Unknow n History Allergy/AdvReac Type Severity Reaction Status Date / Time Corticosteroids AdvReac Other Verified 04/03/25 00:16 (Glucocorticoids) (steroids) Dsycwvx-YIT-GhR Reductase AdvReac Other Verified 04/03/25 00:16 Inhibitor (Miaucxf-Ggm-Not Reductase Inhibitor) Family History Mother COPD (chronic obstructive pulmonary disease) Father CAD (coronary artery disease) Heart disease Surgical History Hx of cystoscopy Hx of colonoscopy Hx of left cataract extraction Hx of right cataract extraction Social History household members: spouse Smoking Status: Current every day smoker tobacco type: cigarettes alcohol intake: never substance use type: does not use ROS ROS Narrative As in HPI Physical Exam Narrative Alert and oriented x 3, no apparent distress S1, S2, RRR Diminished breath sounds. No rales or rhonchi. On O2 nasal cannula 3 to 4 L Abdomen soft, nontender, nondistended No edema External Osborne in place Lab / Micro Data 04/04/25 03:15 04/04/25 13:45 Labs: Laboratory Results - last 24 hr 04/03/25 13:54: POC Glucose > 500 H* 04/03/25 14:50: Sodium 133, Potassium 4.4, Chloride 98, Carbon Dioxide 13.6 L, Anion Gap 21 H, BUN 58 H, Creatinine 2.67 H, Estim Creat Clear Calc 18.87 L, Est GFR (MDRD) Non-Af 23 L, BUN/Creatinine Ratio 21.7 H, Glucose 638 H*, Calcium 8.6 04/03/25 14:51: POC Glucose > 500 H* 04/03/25 16:04: POC Glucose 496 H* 04/03/25 17:23: POC Glucose 454 H* 04/03/25 18:09: POC Glucose 363 H 04/03/25 18:50: Sodium 135, Potassium 4.3, Chloride 100, Carbon Dioxide 16.9 L, Anion Gap 18 H, BUN62 H, Creatinine 2.73 H, Estim Creat Clear Calc 18.46 L, EstGFR (MDRD) Non-Af 23 L, BUN/Creatinine Ratio 22.9 H, Glucose 407 H, Calcium 9.0 04/03/25 18:58: POC Glucose 366 H 04/03/25 20:11: POC Glucose 317 H 04/03/25 21:27: POC Glucose 284 H 04/03/25 22:20: POC Glucose 250 H 04/03/25 23:10: Sodium 136, Potassium 4.5, Chloride 102, Carbon Dioxide 17.3 L, Anion Gap 16 H, BUN66 H, Creatinine 3.02 H, Estim Creat Clear Calc 16.69 L, EstGFR (MDRD) Non-Af 20 L, BUN/Creatinine Ratio 21.7 H, Glucose 275 H, Calcium 8.5 04/03/25 23:12: POC Glucose 261 H 04/04/25 00:03: POC Glucose 235 H 04/04/25 01:02: POC Glucose 229 H 04/04/25 03:15: WBC 22.0 H, RBC 2.47 L, Hgb 7.4 L, Hct 22.8 L, MCV 92.3, MCH 30.0, MCHC 32.5, RDW Std Deviation 45.9 H, RDW Coeff of Humaira 13.6, Plt Count 230,MPV 11.4, Immature Gran % (Auto) 0.600, Neut % (Auto) 90.4 H, Lymph % (Auto) 4.9L, Ada % (Auto) 4.0, Eos % (Auto) 0.0, Baso % (Auto) 0.1, Absolute Neuts (auto)19.9 H, Absolute Lymphs (auto) 1.08, Nucleated RBC % 0, Sodium 136, Potassium 4.6,Chloride 103, Carbon Dioxide 17.8 L, Anion Gap 15, BUN 69 H, Creatinine 3.26 H, Estim Creat Clear Calc 15.61 L, Est GFR (MDRD) Non-Af 18 L, BUN/Creatinine Ratio 21.1 H, Glucose 203 H, Calcium 8.6 04/04/25 03:17: POC Glucose 174 H 04/04/25 04:12: POC Glucose 178 H 04/04/25 06:04: POC Glucose 183 H 04/04/25 06:50: Sodium 137, Potassium 5.0, Chloride 104, Carbon Dioxide 17.5 L, Anion Gap 15, BUN 70 H, Creatinine 3.34 H, Estim Creat Clear Calc 15.24 L, Est GFR (MDRD) Non-Af 18 L, BUN/Creatinine Ratio 21.0 H, Glucose 208 H, Calcium 8.7 04/04/25 07:44: POC Glucose 209 H 04/04/25 10:02: POC Glucose 164 H 04/04/25 13:45: Sodium 134, Potassium 5.4 H, Chloride 101, Carbon Dioxide 17.2 L, Anion Gap 17 H, BUN 77 H, Creatinine 3.74 H, Estim Creat Clear Calc 13.61 L, Est GFR (MDRD) Non-Af 16 L, BUN/Creatinine Ratio 20.5 H, Glucose 226 H, Calcium 8.6 Rhythm Strip Rhythm Strip: Sinus Rhythm Rate: 86 04/04/25 1532 Cosigner Signature (if applicable): 04/05/25 1003 CC: Dr. Ryley Jeter MD~ Signed [facility]06-05-2025 Progress note [facility] Medical Records Department [address] [place] [address] Progress Note - Foil Stamp Operator 04/05/25 0819 MR#: [id number] Acct: [id number] Name: ENOC ARMANDO Rep #:[id number] : 1945 79 From: Landry Fagan DO PCP: Dr. Ryley Jeter MD Status:ADM IN Location: [place] [address] Assessment & Plan Assessment/Plan (1) Acute hypoxic respiratory failure: PLAN: Plan RECOMMENDATIONS: 1. Continue supplemental oxygen to maintain saturations at or above 90%. 2. Empiric BiPAP therapy with naps and nightly. 3. Continue empiric antimicrobials, bronchodilators and steroids. 4. The patient will undoubtedly need to follow-up in the pulmonary medicine clinic so that baselinePFTs can be obtained. 5. Smoking cessation is advisable. IMPRESSIONS: 1. Acute hypoxemic respiratory failure Clinical concern for multifactorial etiology with possible COPD exacerbation along with possible CHF contributing. The patient has an extensive tobacco abuse history, but has never been formally diagnosed with COPD. He does have evidence of bilateral pleural effusions along with questionable airspace disease, concerning for pneumonia. Accordingly, the patient will be continued on scheduled bronchodilators, antimicrobials and prednisone. Will defer additional medical optimization to cardiology, who is following. Ideally, the patient will need outpatient follow-up in the pulmonary medicine office after discharge so that baseline PFTs can be obtained. 2. Chronic tobacco dependency Tobacco cessation is strongly advised. Recommend outpatient pulmonary follow- upand PFTs. 3. Elevated troponin likely secondary to demand ischemia in the setting of #1 Continue current supportive care per cardiology recommendations. 4. History of diabetes mellitus/hypertension/hyperlipidemia/chronic kidney disease/BPH Complicates care, management, recovery and prognosis. Continue home medicationsas indicated. CODE STATUS: DNR CCA without intubation This note was generated with My[employer] dictation software. It may contain incorrectwords, spelling, and punctuation that were not noted in checking the note beforesigning. Subjective Subjective The patient was seen and examined at the bedside this morning. Events from the last 24 hours have been reviewed. The patient is currently afebrile, hemodynamically stable and maintaining appropriate oxygen saturations on BiPAP. The patient had been on 3 L/min via nasal cannula. White blood cell count is elevated at 20,000 with a hemoglobin of 8.3 g/dL. Objective Data Objective Data The patient's most recent lab work, culture data and imaging studies have all been personally reviewed. Surface echocardiogram demonstrated an ejection fraction of 40% with stage I diastolic dysfunction and severe mitral annular calcification. Right ventricular systolic pressure was estimated to be41 mmHg. Strep and urine Legionella antigens were negative. Respiratory viral panel wasnegative. Blood and urine cultures have not demonstrated any growth to date. Vital Signs: Vital Signs Temp Pulse Resp BP Pulse Ox O2 Del Method O2 Flow Rate 97.6 F L 95 20 H 98/53 L 95 Nasal Cannula 94 04/05/25 06:23 04/05/25 07:58 04/05/25 07:58 04/05/25 07:40 04/05/25 07:58 04/05/25 07:40 04/05/25 07:40 FiO2 35 04/05/25 07:58 Oxygen Flow Rate (L/min) 94 Oxygen Delivery Method Nasal Cannula Weight: 136 lb 14.513 oz Body Mass Index (BMI) 21.4 Intake & Output: Intake and Output for Last 24 Hours 04/03/25 04/04/25 04/05/25 23:59 23:59 23:59 Intake Total 713.88 / 713.88 1341.85 / 1341.85 Output Total 350 / 350 100 / 100 400 / 400 Balance 363.88 / 363.88 1241.85 / 1241.85 -400 / -400 Lab / Micro Data Attestation: I reviewed the patient's lab results. 04/05/25 02:45 04/04/25 13:45 Labs: Laboratory Results - last 24 hr 04/04/25 00:00: Troponin T Hi Sens 2 Hr 2263 H* 04/04/25 01:02: POC Glucose 229 H 04/04/25 03:17: POC Glucose 174 H 04/04/25 04:12: POC Glucose 178 H 04/04/25 06:04: POC Glucose 183 H 04/04/25 07:44: POC Glucose 209 H 04/04/25 10:02: POC Glucose 164 H 04/04/25 13:45: Sodium 134, Potassium 5.4 H, Chloride 101, Carbon Dioxide 17.2 L, Anion Gap 17 H, BUN 77 H, Creatinine 3.74 H, Estim Creat Clear Calc 13.61 L, Est GFR (MDRD) Non-Af 16 L, BUN/Creatinine Ratio 20.5 H, Glucose 226 H, Calcium 8.6 04/04/25 14:26: Urine Creatinine 138.00, Urine Urea Nitrogen 406 04/04/25 16:39: POC Glucose 307 H 04/04/25 21:36: POC Glucose 355 H 04/04/25 21:59: Troponin T High Sens 2204 H* D 04/05/25 02:45: WBC 20.4 H, RBC 2.77 L, Hgb 8.3 L, Hct 25.6 L, MCV 92.4, MCH 30.0, MCHC 32.4, RDW Std Deviation 46.6 H, RDW Coeff of Humaira 13.8, Plt Count 255,MPV 11.7, Immature Gran % (Auto) 1.000 H, Neut % (Auto) 85.5 H, Lymph % (Auto) 5.7 L, Ada % (Auto) 7.7, Eos % (Auto) 0.0, Baso % (Auto) 0.1, Absolute Neuts (auto) 17.4 H, Absolute Lymphs (auto) 1.16, Nucleated RBC % 0, Differential Comment SCANNED, Troponin T Hi Sens 4Hr 2425 H* 04/05/25 06:26: POC Glucose 253 H Micro: Microbiology 04/03/25 05:46 Wound - Elbow Skin and Soft Tissue MRSA/MSSA (PCR - Final 04/03/25 05:10 Mucosa - Nasopharyngeal Respiratory Panel (PCR) - Final 04/03/25 05:51 Urine, Clean Catch Legionella Antigen - Final 04/03/25 05:51 Urine Catheter - Catheter Streptococcus pneumoniae Antigen (M- Final 04/03/25 00:25 Mucosa - Nose SARS-CoV-2, Influenza & RSV (PCR) - Final Radiography Diagnostic Testing: Radiology Impression Renal Ultrasound 04/04/25 11:33 IMPRESSION: 1. Mild renal cortical thinning bilaterally. No hydronephrosis. 2. Nonobstructing stone in the left kidney measuring 0.5 cm, unchanged. 3. Prostatomegaly with an echogenic nodule measuring 1.9 cm, similar to prior. Correlate with PSA. Reading Location: [facility] Rhythm Strip Rhythm Strip: Sinus Rhythm Rate: 86 Physical Exam Const alert, oriented x3 and no apparent distress Constitutional Narrative: is present at the bedside. HEENT normocephalic, head/scalp atraumatic and moist oral mucous membranes Eyes PERRL, EOMs intact bilaterally and conjunctivae normal Neck supple General: trachea midline Chest inspection of chest normal Resp normal respiratory effort and no use of accessory muscles Auscultation: rales and diminished lung sounds Cardio regular rate, S1 normal heart sound and S2 normal heart sound GI normal to inspection, nondistended, normoactive bowel sounds Extremity no clubbing, cyanosis or edema Skin Skin Narrative: Wrapped lower extremities. Neuro CN's II-XII intact bilaterally, moves all extremities and no focal motor deficits Psych cooperative and affect normal Charges/Coding Visit Charges Inpatient E&M: 90957 Subs Hosp L2 04/05/25 0930 Cosigner Signature (if applicable): CC: ~ Signed [facility]06-05-2025 Radiology Diagnostic study note [facility] Imaging Services [address] [place] [address] Kidney and Bladder MR#: [id number] Acct: [id number] Name: ENOC ARMANDO Rep #: [id number] : 1945 M 79 From: Demetria Mahoney MD PCP: Dr. Ryley Jeter MD Status: ADM IN Study:Kidney and Bladder Date of Exam: 0 04/04/25 Exam# [id number] Ordering Dr: Kesha Arnold MD PROCEDURE: KIDNEY AND BLADDER 04/04/2025 REASON FOR EXAM: MADONNA ON CKD III TECHNIQUE: Renal and urinary bladder ultrasound with grayscale and color Doppler. COMPARISON: Renal ultrasound 09/12/2024 FINDINGS: The right kidney measures 8.3 x 3.3 x 4.8 cm and demonstrates mild diffuse renalcortical thinning, with cortex thickness of 0.9 cm. Cortical echogenicity is not significantly increased. No hydronephrosis. The left kidney measures 9.9 x 5.3 x 4.6 cm, also with mild cortical thinning with thickness of 1.1cm. Cortical echogenicity is not significantly increased. There is an echogenic focus with twinkle artifact in the lower pole ofthe left kidney measuring 0.5 cm, unchanged. No hydronephrosis. Urinary bladder is unremarkable with a wall thickness of 3 mm. The left ureteral jet is visualized,the right is not. The prostate measures 4.8 x 3.5 x 5.2 cm and contains an echogenic nodule measuring 1.9 cm, similarto prior. US/Kidney and Bladder IMPRESSION: 1. Mild renal cortical thinning bilaterally. No hydronephrosis. 2. Nonobstructing stone in the left kidney measuring 0.5 cm, unchanged. 3. Prostatomegaly with an echogenic nodule measuring 1.9 cm, similar to prior. Correlate with PSA. Reading Location: [facility] CC: Dr. Ryley Jeter MD; Dr. Grace Arnold MD ~ Exercise Manager: Signed [facility]06-04-2025 [facility] Note Date/Time April 04, 2025 5:42p m [facility] Medical Records Department [address] [place] [address] Progress Note 04/04/25 1121 MR#: [id number] Acct: [id number] Name: ENOC ARMANDO Rep #:[id number] : 1945 79 From: Grace Arnold MD PCP: Dr. Ryley Jeter MD Status:ADM IN Location: ICU ICU04-1 Subjective Subjective Patient seen and examined. He is feeling much better today. He is on 3L of oxygen by nasal canula. WBC today is 22, and Hb is 7.4. He feels his breathing has improved. Review of systems is otherwise negative. Objective Data Objective Data Vital Signs: Vital Signs Temp Pulse Resp BP Pulse Ox O2 Del Method O2 Flow Rate 98.2 F 93 20 H 125/114 H 99 Nasal Cannula 3 04/04/25 08:00 04/04/25 11:00 04/04/25 11:00 04/04/25 11:00 04/04/25 11:00 04/04/25 11:00 04/04/25 11:00 FiO2 30 04/03/25 18:45 Oxygen Flow Rate (L/min) 3 Oxygen Delivery Method Nasal Cannula Weight: 136 lb 14.513 oz Body Mass Index (BMI) 21.4 Intake & Output: Intake and Output for Last 24 Hours 04/02/25 04/03/25 04/04/25 23:59 23:59 23:59 Intake Total 713.88 / 713.88 22.95 / 22.95 Output Total 350 / 350 Balance 363.88 / 363.88 22.95 / 22.95 Lab / Micro Data 04/04/25 03:15 04/04/25 06:50 Labs: Laboratory Results - last 24 hr 04/03/25 11:37: POC Glucose > 500 H* 04/03/25 12:10: APTT 212.0 H* 04/03/25 12:50: POC Glucose > 500 H* 04/03/25 13:54: POC Glucose > 500 H* 04/03/25 14:50: Sodium 133, Potassium 4.4, Chloride 98, Carbon Dioxide 13.6 L, Anion Gap 21 H, BUN 58 H, Creatinine 2.67 H, Estim Creat Clear Calc 18.87 L, Est GFR (MDRD) Non-Af 23 L, BUN/Creatinine Ratio 21.7 H, Glucose 638 H*, Calcium 8.6 04/03/25 14:51: POC Glucose > 500 H* 04/03/25 16:04: POC Glucose 496 H* 04/03/25 17:23: POC Glucose 454 H* 04/03/25 18:09: POC Glucose 363 H 04/03/25 18:50: Sodium 135, Potassium 4.3, Chloride 100, Carbon Dioxide 16.9 L, Anion Gap 18 H, BUN 62 H, Creatinine 2.73 H, Estim Creat Clear Calc 18.46 L, EstGFR (MDRD) Non-Af 23 L, BUN/Creatinine Ratio 22.9 H, Glucose 407 H, Calcium 9.0 04/03/25 18:58: POC Glucose 366 H 04/03/25 20:11: POC Glucose 317 H 04/03/25 21:27: POC Glucose 284 H 04/03/25 22:20: POC Glucose 250 H 04/03/25 23:10: Sodium 136, Potassium 4.5, Chloride 102, Carbon Dioxide 17.3 L, Anion Gap 16 H, BUN 66 H, Creatinine 3.02 H, Estim Creat Clear Calc 16.69 L, EstGFR (MDRD) Non-Af 20 L, BUN/Creatinine Ratio 21.7 H, Glucose 275 H, Calcium 8.5 04/03/25 23:12: POC Glucose 261 H 04/04/25 00:03: POC Glucose 235 H 04/04/25 01:02: POC Glucose 229 H 04/04/25 03:15: WBC 22.0 H, RBC 2.47 L, Hgb 7.4 L, Hct 22.8 L, MCV 92.3, MCH 30.0, MCHC 32.5, RDW Std Deviation 45.9 H, RDW Coeff of Humaira 13.6, Plt Count 230,MPV 11.4, Immature Gran % (Auto) 0.600, Neut % (Auto) 90.4 H, Lymph % (Auto) 4.9L, Ada % (Auto) 4.0, Eos % (Auto) 0.0, Baso % (Auto) 0.1, Absolute Neuts (auto)19.9 H, Absolute Lymphs (auto) 1.08, Nucleated RBC % 0, Sodium 136, Potassium 4.6, Chloride 103, Carbon Dioxide 17.8 L, Anion Gap 15, BUN 69 H, Creatinine 3.26 H, Estim Creat Clear Calc 15.61 L, Est GFR (MDRD) Non-Af 18 L, BUN/Creatinine Ratio 21.1 H, Glucose 203 H, Calcium 8.6 04/04/25 03:17: POC Glucose 174 H 04/04/25 04:12: POC Glucose 178 H 04/04/25 06:04: POC Glucose 183 H 04/04/25 06:50: Sodium 137, Potassium 5.0, Chloride 104, Carbon Dioxide 17.5 L, Anion Gap 15, BUN 70 H, Creatinine 3.34 H, Estim Creat Clear Calc 15.24 L, Est GFR (MDRD) Non-Af 18 L, BUN/Creatinine Ratio 21.0 H, Glucose 208 H, Calcium 8.7 04/04/25 07:44: POC Glucose 209 H 04/04/25 10:02: POC Glucose 164 H Micro: Microbiology 04/03/25 05:46 Wound - Elbow Skin and Soft Tissue MRSA/MSSA (PCR - Final 04/03/25 05:10 Mucosa - Nasopharyngeal Respiratory Panel (PCR) - Final 04/03/25 05:51 Urine, Clean Catch Legionella Antigen - Final 04/03/25 05:51 Urine Catheter - Catheter Streptococcus pneumoniae Antigen (M- Final 04/03/25 00:25 Mucosa - Nose SARS-CoV-2, Influenza & RSV (PCR) - Final Radiography Diagnostic Testing: Radiology Impression Echocardiogram 04/03/25 05:55 Interpretation Summary Mid to distal anterior septal, inferior septal, inferior and posterior hypokinesis. Estimated LVEF 40%. Stage I diastolic dysfunction. The left atrium is mildly enlarged. Severe mitral annular calcification. Moderate (2+) posteriorly directed mitral valve insufficiency. Right ventricular systolic pressure estimated to be 41 mmHg. Aortic sclerosis, no stenosis. Ordering Physician: Dyana Hwang Performed By: Fiordaliza Edgar RDCS and Student Rhythm Strip Rhythm Strip: Sinus Rhythm Rate: 86 Physical Exam Const alert and oriented x3 Constitutional Narrative: looks much better, on 3L of oxygen by nasal canula. General Appearance: cooperative HEENT normocephalic, moist oral mucous membranes, oropharynx normal and gingiva normal Eyes PERRL and EOMs intact bilaterally Neck no lymphadenopathy and supple Lymph Lymphatic: no lymphadenopathy noted and no lymphedema noted Resp Resp Narrative: moderately diminished breath sounds bilaterally, on 3L of oxygen by nasal canula. Cardio regular rate, regular rhythm, S1 normal heart sound, S2 normal heart sound and no murmurs GI normal to inspection, nondistended, normoactive bowel sounds, soft to palpation and non-tender Extremity normal capillary refill, no clubbing, cyanosis or edema and no calf tenderness General Extremity: no tenderness to palpation of joints or extremities Skin General Skin Exam: no breakdown Neuro CN's II-XII intact bilaterally, no focal motor deficits and no sensory deficits noted Motor Exam: general weakness Psych thought process normal and cooperative Appearance: appropriate Assessment & Plan Assessment/Plan (1) Acute hypoxic respiratory failure: PLAN: Plan #Acute hypoxic respiratory failure due to acute on chronic COPD examination and probable heart failure as well as superimposed pneumonia * on BIPAP. * sputum cultures pending. Urine for strep and legionella negative. Respiratory panel negative. * breathing treatment with bronchodilators. Titrate oxygen to maintain sats >90% * critical care on board. * 2D echo ordered showed EF of 40% with LV hypokinesis and stage I diastolic dysfunction and RVSP of 41mmHg. * cardiolopgy consulted. Per cardiology he had a cardiac cath 2 years ago at [facility] and was told he had 2 blockages which were not amenable to revascularization. Records requested from [facility]. Further management as per cardiology. * #Elevated cardiac enzymes: * initial troponin was 58, and only peaked at 76. 2D echo as above. * Further records requested from [facility] as above * cardiology on board * #MADONNA on CKD III: * Cr today is up to 3.34 WIll consult nephrology. lasix on hold. Hold any other nephrotoxic meds. * insert osborne catheter #Leukocytosis: WBCs 22 today. Likely due to IV steroid she is receiving. Will monitor.. Switch to PO prednisone. #Type 2 diabetes mellitus: on lantus. ISS. Accuchecks ACHS #Hyperlipidemia: on ezetimibe #CKD III: Cr at baseline. Will monitor closely #Nicotine dependence: counseled to quit. Nicotine patch prn. DVT prophylaxis: heparin sq. Charges/Coding Visit Charges Inpatient E&M: 45582 [facility] Hosp L3 04/04/25 3122 <Electronically signed by Grace Arnold MD> Grace Arnold MD Cosigner Signature (if applicable): CC: ~ Signed [facility] Work Phone: [phone]) 902-783906-04-2025 Progress note [facility] Medical Records Department [address] [place] [address] Progress Note 04/04/25 1121 MR#: [id number] Acct: [id number] Name: ENOC ARMANDO Rep #:[id number] : 1945 79 From: Grace Arnold MD PCP: Dr. Ryley Jeter MD Status:ADM IN Location: ICU ICU04-1 Subjective Subjective Patient seen and examined. He is feeling much better today. He is on 3L of oxygen by nasal canula. WBC today is 22, and Hb is 7.4. He feels his breathing has improved. Review of systems is otherwise negative. Objective Data Objective Data Vital Signs: Vital Signs Temp Pulse Resp BP Pulse Ox O2 Del Method O2 Flow Rate 98.2 F 93 20 H 125/114 H 99 Nasal Cannula 3 04/04/25 08:00 04/04/25 11:00 04/04/25 11:00 04/04/25 11:00 04/04/25 11:00 04/04/25 11:00 04/04/25 11:00 FiO2 30 04/03/25 18:45 Oxygen Flow Rate (L/min) 3 Oxygen Delivery Method Nasal Cannula Weight: 136 lb 14.513 oz Body Mass Index (BMI) 21.4 Intake & Output: Intake and Output for Last 24 Hours 04/02/25 04/03/25 04/04/25 23:59 23:59 23:59 Intake Total 713.88 / 713.88 22.95 / 22.95 Output Total 350 / 350 Balance 363.88 / 363.88 22.95 / 22.95 Lab / Micro Data 04/04/25 03:15 04/04/25 06:50 Labs: Laboratory Results - last 24 hr 04/03/25 11:37: POC Glucose > 500 H* 04/03/25 12:10: APTT 212.0 H* 04/03/25 12:50: POC Glucose > 500 H* 04/03/25 13:54: POC Glucose > 500 H* 04/03/25 14:50: Sodium 133, Potassium 4.4, Chloride 98, Carbon Dioxide 13.6 L, Anion Gap 21 H, BUN 58 H, Creatinine 2.67 H, Estim Creat Clear Calc 18.87 L, Est GFR (MDRD) Non-Af 23 L, BUN/Creatinine Ratio 21.7 H, Glucose 638 H*, Calcium 8.6 04/03/25 14:51: POC Glucose > 500 H* 04/03/25 16:04: POC Glucose 496 H* 04/03/25 17:23: POC Glucose 454 H* 04/03/25 18:09: POC Glucose 363 H 04/03/25 18:50: Sodium 135, Potassium 4.3, Chloride 100, Carbon Dioxide 16.9 L, Anion Gap 18 H, BUN62 H, Creatinine 2.73 H, Estim Creat Clear Calc 18.46 L, EstGFR (MDRD) Non-Af 23 L, BUN/Creatinine Ratio 22.9 H, Glucose 407 H, Calcium 9.0 04/03/25 18:58: POC Glucose 366 H 04/03/25 20:11: POC Glucose 317 H 04/03/25 21:27: POC Glucose 284 H 04/03/25 22:20: POC Glucose 250 H 04/03/25 23:10: Sodium 136, Potassium 4.5, Chloride 102, Carbon Dioxide 17.3 L, Anion Gap 16 H, BUN66 H, Creatinine 3.02 H, Estim Creat Clear Calc 16.69 L, EstGFR (MDRD) Non-Af 20 L, BUN/Creatinine Ratio 21.7 H, Glucose 275 H, Calcium 8.5 04/03/25 23:12: POC Glucose 261 H 04/04/25 00:03: POC Glucose 235 H 04/04/25 01:02: POC Glucose 229 H 04/04/25 03:15: WBC 22.0 H, RBC 2.47 L, Hgb 7.4 L, Hct 22.8 L, MCV 92.3, MCH 30.0, MCHC 32.5, RDW Std Deviation 45.9 H, RDW Coeff of Humaira 13.6, Plt Count 230,MPV 11.4, Immature Gran % (Auto) 0.600, Neut % (Auto) 90.4 H, Lymph % (Auto) 4.9L, Ada % (Auto) 4.0, Eos % (Auto) 0.0, Baso % (Auto) 0.1, Absolute Neuts (auto)19.9 H, Absolute Lymphs (auto) 1.08, Nucleated RBC % 0, Sodium 136, Potassium 4.6,Chloride 103, Carbon Dioxide 17.8 L, Anion Gap 15, BUN 69 H, Creatinine 3.26 H, Estim Creat Clear Calc 15.61 L, Est GFR (MDRD) Non-Af 18 L, BUN/Creatinine Ratio 21.1 H, Glucose 203 H, Calcium 8.6 04/04/25 03:17: POC Glucose 174 H 04/04/25 04:12: POC Glucose 178 H 04/04/25 06:04: POC Glucose 183 H 04/04/25 06:50: Sodium 137, Potassium 5.0, Chloride 104, Carbon Dioxide 17.5 L, Anion Gap 15, BUN 70 H, Creatinine 3.34 H, Estim Creat Clear Calc 15.24 L, Est GFR (MDRD) Non-Af 18 L, BUN/Creatinine Ratio 21.0 H, Glucose 208 H, Calcium 8.7 04/04/25 07:44: POC Glucose 209 H 04/04/25 10:02: POC Glucose 164 H Micro: Microbiology 04/03/25 05:46 Wound - Elbow Skin and Soft Tissue MRSA/MSSA (PCR - Final 04/03/25 05:10 Mucosa - Nasopharyngeal Respiratory Panel (PCR) - Final 04/03/25 05:51 Urine, Clean Catch Legionella Antigen - Final 04/03/25 05:51 Urine Catheter - Catheter Streptococcus pneumoniae Antigen (M- Final 04/03/25 00:25 Mucosa - Nose SARS-CoV-2, Influenza & RSV (PCR) - Final Radiography Diagnostic Testing: Radiology Impression Echocardiogram 04/03/25 05:55 Interpretation Summary Mid to distal anterior septal, inferior septal, inferior and posterior hypokinesis. Estimated LVEF 40%. Stage I diastolic dysfunction. The left atrium is mildly enlarged. Severe mitral annular calcification. Moderate (2+) posteriorly directed mitral valve insufficiency. Right ventricular systolic pressure estimated to be 41 mmHg. Aortic sclerosis, no stenosis. Ordering Physician: Dyana Hwang Performed By: Fiordaliza Edgar RDCS and Student Rhythm Strip Rhythm Strip: Sinus Rhythm Rate: 86 Physical Exam Const alert and oriented x3 Constitutional Narrative: looks much better, on 3L of oxygen by nasal canula. General Appearance: cooperative HEENT normocephalic, moist oral mucous membranes, oropharynx normal and gingiva normal Eyes PERRL and EOMs intact bilaterally Neck no lymphadenopathy and supple Lymph Lymphatic: no lymphadenopathy noted and no lymphedema noted Resp Resp Narrative: moderately diminished breath sounds bilaterally, on 3L of oxygen by nasal canula. Cardio regular rate, regular rhythm, S1 normal heart sound, S2 normal heart sound and no murmurs GI normal to inspection, nondistended, normoactive bowel sounds, soft to palpation and non-tender Extremity normal capillary refill, no clubbing, cyanosis or edema and no calf tenderness General Extremity: no tenderness to palpation of joints or extremities Skin General Skin Exam: no breakdown Neuro CN's II-XII intact bilaterally, no focal motor deficits and no sensory deficits noted Motor Exam: general weakness Psych thought process normal and cooperative Appearance: appropriate Assessment & Plan Assessment/Plan (1) Acute hypoxic respiratory failure: PLAN: Plan #Acute hypoxic respiratory failure due to acute on chronic COPD examination and probable heart failure as well as superimposed pneumonia * on BIPAP. * sputum cultures pending. Urine for strep and legionella negative. Respiratory panel negative. * breathing treatment with bronchodilators. Titrate oxygen to maintain sats >90% * critical care on board. * 2D echo ordered showed EF of 40% with LV hypokinesis and stage I diastolic dysfunction and RVSP of 41mmHg. * cardiolopgy consulted. Per cardiology he had a cardiac cath 2 years ago at [facility] and was toldhe had 2 blockages which were not amenable to revascularization. Records requested from [facility]. Further management as per cardiology. * #Elevated cardiac enzymes: * initial troponin was 58, and only peaked at 76. 2D echo as above. * Further records requested from [facility] as above * cardiology on board * #MADONNA on CKD III: * Cr today is up to 3.34 WIll consult nephrology. lasix on hold. Hold any other nephrotoxic meds. * insert osborne catheter #Leukocytosis: WBCs 22 today. Likely due to IV steroid she is receiving. Will monitor.. Switch to PO prednisone. #Type 2 diabetes mellitus: on lantus. ISS. Accuchecks ACHS #Hyperlipidemia: on ezetimibe #CKD III: Cr at baseline. Will monitor closely #Nicotine dependence: counseled to quit. Nicotine patch prn. DVT prophylaxis: heparin sq. Charges/Coding Visit Charges Inpatient E&M: 13737 Subs Hosp L3 04/04/25 1742 Grace Arnold MD Cosigner Signature (if applicable): CC: ~ Signed [facility]06-04-2025 Progress note Author Donte Callum [facility] Note Date/Time April 04, 2025 2:56p [facility] Medical Records Department [address] [place] [address] Progress Note - Foil Stamp Operator 04/04/25 1257 MR#: [id number] Acct: [id number] Name: ENOC ARMANDO Rep #:[id number] : 1945 79 From: Donte Silver PCP: Dr. Ryley Jeter MD Status:ADM IN Location: ICU ICU-1 Objective Data Objective Data Vital Signs: Vital Signs Last response 3 Temperature 36.8 C 04/04/25 08:00 Temperature Source Temporal 04/04/25 08:00 Pulse Rate 85 04/04/25 11:31 Respiratory Rate 18 04/04/25 11:31 Respiratory Effort Normal, Non-Labored 04/04/25 08:00 Respiratory Depth Normal 04/04/25 08:00 Respiratory Pattern Normal 04/04/25 11:31 Blood Pressure 125/114 H 04/04/25 11:00 Blood Pressure Mean 117 04/04/25 11:00 Blood Pressure Source Monitor 04/04/25 11:00 Blood Pressure Position Semi-Fowlers 04/04/25 11:00 Blood Pressure Location Right Arm 04/04/25 11:00 Pulse Ox 99 04/04/25 11:00 Oxygen Delivery Method Nasal Cannula 04/04/25 11:00 Oxygen Flow Rate (L/min) 3 04/04/25 11:01 Fraction of Inspired Oxygen (FIO2) 30 04/03/25 18:45 I&O: I&O Last 24 Hours 3 04/03/25 04/04/25 04/04/25 23:59 11:59 23:59 Intake Total 408.88 / 713.88 22.95 / 22.95 Output Total 350 / 350 Balance 58.88 / 363.88 22.95 / 22.95 I&O: Total Stay 3 04/02/25 23:59 thru 04/04/25 11:45 Intake Total 736.83 Output Total 350 Balance 386.83 Current Meds Ordered / Administered: Current meds ordered / Administered 3 Generic Name Dose Route Start Last Admin Trade Name Freq PRN Reason Stop Dose Admin Acetaminophen 650 mg 04/03/25 05:17 Acetaminophen 325 Mg Tablet PO Q4H PRN PRN Fever, pain 1-08/10 Al Hydroxide/Mg Hydroxide 30 ml 04/03/25 05:17 Mag Hydrox/Al Hydrox/Simeth 30 Ml Udc PO Q6H PRN PRN Gastric Burning Albuterol Sulfate 2.5 mg 04/03/25 05:17 04/03/25 11:06 Albuterol 2.5 Mg/3 Ml Vial.Neb. INHALATION 2.5 mg Q2H PRN PRN Administration Dyspnea, wheezing Albuterol/Ipratropium 3 ml 04/03/25 05:17 04/04/25 11:27 Ipratropium/Albuterol Sulfate 3 Ml Ampul.Neb INHALATION 3 ml Q4HWA.RT DIDI Administration Amlodipine Besylate 10 mg 04/03/25 12:00 04/04/25 12:12 Amlodipine 10 Mg Tablet PO 10 mg 1200 DIDI Administration Protocol Aspirin 81 mg 04/03/25 08:00 04/04/25 10:50 Aspirin E.C. 81 Mg Tablet PO 81 mg BREAKFAST DIDI Administration Ezetimibe 10 mg 04/03/25 10:00 04/04/25 10:55 Ezetimibe 10 Mg Tablet PO 10 mg DAILY DIDI Administration Furosemide 40 mg 04/03/25 10:00 04/03/25 16:45 Furosemide 40 Mg/4 Ml Vial IV 40 mg BID@1000,1800 DIDI Administration Glucagon 1 mg 04/03/25 05:17 Glucagon 1 Mg/Ml Syringe IM X1 PRN HYPOGLYCEMIA Protocol Guaifenesin 10 ml 04/03/25 05:17 Guaifenesin 10 Ml Udc (200mg/10ml) PO Q4H PRN PRN COUGH Heparin Sodium (Porcine) 5,000 unit 04/03/25 22:00 04/04/25 05:39 Heparin Injection (Vial) 5,000 Unit/Ml Vial SC 5,000 unit Q8 DIDI Administration Hydralazine HCl 50 mg 04/03/25 06:00 04/04/25 05:37 Hydralazine 50 Mg Tablet PO Not Given Q8 DIDI Protocol Hydralazine HCl 10 mg 04/03/25 05:17 Hydralazine 20 Mg/Ml Vial IV Q4H PRN PRN SBP > 160 Protocol Azithromycin 500 mg/ Sodium 255 mls @ 255 mls/hr 04/03/25 22:00 04/03/25 22:33 Chloride IV Infused Q24H DIDI Infusion Ceftriaxone Sodium 1 gm in 50 mls @ 100 mls/hr 04/03/25 22:00 04/03/25 23:16 Rocephin IV Infused Q24H DIDI Infusion Dextrose 250 mls @ 0 mls/hr 04/03/25 05:17 Dextrose 10%-Water IV .Q0M PRN HYPOGLYCEMIA Protocol As Directed Sodium Chloride 250 mls @ 15 mls/hr 04/03/25 05:18 IV .[id number] PRN Saline Flush Sodium Chloride 250 mls @ 15 mls/hr 04/03/25 05:18 IV .[id number] PRN Additional IVPB Infusion Dextrose 250 mls @ 999 mls/hr 04/03/25 13:17 Dextrose 10%-Water IV .Q16M PRN Hypoglycemic Protocol Protocol Dextrose/Sodium Chloride 1,000 mls @ 60 mls/hr 04/03/25 22:35 04/03/25 23:16 IV 60 mls/hr .[id number] DIDI Administration Insulin Glargine 15 unit 04/04/25 08:50 04/04/25 10:55 Insulin Glargine-Yfgn 100 Unit/Ml Pen SC 15 unit DAILY DIDI Administration Lisinopril 5 mg 04/03/25 10:00 04/03/25 07:58 Lisinopril 5 Mg Tablet PO 5 mg DAILY DIDI Administration Protocol Melatonin 3 mg 04/03/25 05:17 Melatonin 3 Mg Tablet PO QHS PRN PRN INSOMNIA Metoprolol Succinate 25 mg 04/03/25 10:00 04/04/25 10:55 Metoprolol(Xl)Succ 25 Mg Tablet PO 25 mg DAILY [facility] Administration Protocol Nitroglycerin 0.4 mg 04/03/25 05:17 Nitroglycerin (Inpatient Use) 0.4 Mg Tab.Subl SL Q5M PRN CARDIAC/CHEST PAIN Ondansetron HCl 4 mg 04/03/25 05:17 Ondansetron 4 Mg/2 Ml Vial IV Q8H PRN PRN NAUSEA/VOMITING Potassium Chloride 20 meq 04/03/25 08:00 04/04/25 10:50 Potassium Chloride Oral Tablet 20 Meq PO 20 meq BIDCM DIDI Administration Prednisone 40 mg 04/05/25 08:00 Prednisone 20 Mg Tablet PO 04/10/25 08:01 BREAKFAST [facility] Prochlorperazine Edisylate 5 mg 04/03/25 05:17 Prochlorperazine 10 Mg/2 Ml Vial IV Q4H PRN PRN Breakthrough Nausea/Vomiting Senna/Docusate Sodium 2 tablet 04/03/25 05:17 Senna/Docusate Sodium 1 Tablet PO BID PRN PRN Constipation Sodium Chloride 10 - 40 ml 04/03/25 05:18 04/03/25 21:38 0.9% Saline Lock 10 Ml Syringe IV 10 ml UD PRN Administration SALINE FLUSH Tamsulosin HCl 0.4 mg 04/03/25 17:30 04/03/25 16:45 Tamsulosin Hcl 0.4 Mg Capsule PO 0.4 mg TuTa@1730 [facility] Administration Lab / Micro Data 04/04/25 03:15 04/04/25 13:45 Labs: Laboratory Results - last 24 hr 04/03/25 12:50: POC Glucose > 500 H* 04/03/25 13:54: POC Glucose > 500 H* 04/03/25 14:50: Sodium 133, Potassium 4.4, Chloride 98, Carbon Dioxide 13.6 L, Anion Gap 21 H, BUN 58 H, Creatinine 2.67 H, Estim Creat Clear Calc 18.87 L, Est GFR (MDRD) Non-Af 23 L, BUN/Creatinine Ratio 21.7 H, Glucose 638 H*, Calcium 8.6 04/03/25 14:51: POC Glucose > 500 H* 04/03/25 16:04: POC Glucose 496 H* 04/03/25 17:23: POC Glucose 454 H* 04/03/25 18:09: POC Glucose 363 H 04/03/25 18:50: Sodium 135, Potassium 4.3, Chloride 100, Carbon Dioxide 16.9 L, Anion Gap 18 H, BUN 62 H, Creatinine 2.73 H, Estim Creat Clear Calc 18.46 L, EstGFR (MDRD) Non-Af 23 L, BUN/Creatinine Ratio 22.9 H, Glucose 407 H, Calcium 9.0 04/03/25 18:58: POC Glucose 366 H 04/03/25 20:11: POC Glucose 317 H 04/03/25 21:27: POC Glucose 284 H 04/03/25 22:20: POC Glucose 250 H 04/03/25 23:10: Sodium 136, Potassium 4.5, Chloride 102, Carbon Dioxide 17.3 L, Anion Gap 16 H, BUN 66 H, Creatinine 3.02 H, Estim Creat Clear Calc 16.69 L, EstGFR (MDRD) Non-Af 20 L, BUN/Creatinine Ratio 21.7 H, Glucose 275 H, Calcium 8.5 04/03/25 23:12: POC Glucose 261 H 04/04/25 00:03: POC Glucose 235 H 04/04/25 01:02: POC Glucose 229 H 04/04/25 03:15: WBC 22.0 H, RBC 2.47 L, Hgb 7.4 L, Hct 22.8 L, MCV 92.3, MCH 30.0, MCHC 32.5, RDW Std Deviation 45.9 H, RDW Coeff of Humaira 13.6, Plt Count 230,MPV 11.4, Immature Gran % (Auto) 0.600, Neut % (Auto) 90.4 H, Lymph % (Auto) 4.9L, Ada % (Auto) 4.0, Eos % (Auto) 0.0, Baso % (Auto) 0.1, Absolute Neuts (auto)19.9 H, Absolute Lymphs (auto) 1.08, Nucleated RBC % 0, Sodium 136, Potassium 4.6, Chloride 103, Carbon Dioxide 17.8 L, Anion Gap 15, BUN 69 H, Creatinine 3.26 H, Estim Creat Clear Calc 15.61 L, Est GFR (MDRD) Non-Af 18 L, BUN/Creatinine Ratio 21.1 H, Glucose 203 H, Calcium 8.6 04/04/25 03:17: POC Glucose 174 H 04/04/25 04:12: POC Glucose 178 H 04/04/25 06:04: POC Glucose 183 H 04/04/25 06:50: Sodium 137, Potassium 5.0, Chloride 104, Carbon Dioxide 17.5 L, Anion Gap 15, BUN 70 H, Creatinine 3.34 H, Estim Creat Clear Calc 15.24 L, Est GFR (MDRD) Non-Af 18 L, BUN/Creatinine Ratio 21.0 H, Glucose 208 H, Calcium 8.7 04/04/25 07:44: POC Glucose 209 H 04/04/25 10:02: POC Glucose 164 H Micro: Microbiology 04/03/25 05:46 Wound - Elbow Skin and Soft Tissue MRSA/MSSA (PCR - Final Rhythm Strip Rhythm Strip: Sinus Rhythm Rate: 86 Assessment and Plan . Assessment and plan: HPI Patient seen and examined Chart and data reviewed He is in NAD - breathing O2 2-3 LPM at rest Lab reviewed - NT-p-BNP 6600 Diuretics are currently held CT chest reviewed - looks like CHF TTE noted - reduced LVSF, moderate MR, elevated PASP EXAM GEN NAD VS as above HEENT o/p clear NECK obese COR RRR CHEST basilar crackles ABD soft EXT minimal edema SKIN w/d NISREEN NF ASSESSMENT/PLAN 1. Dyspnea / hypoxemia 2. Decompensated CHF w/ edema and effusions 3. Markedly elevated NT-p-BNP 4. Decreased LVSF w/ MR and PAH 5. Tobacco use and possible COPD 6. 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 Ryley Jeter MD Status:ADM IN Location: ICU ICU04-1 Objective Data Objective Data Vital Signs: Vital Signs Last response 3 Temperature 36.8 C 04/04/25 08:00 Temperature Source Temporal 04/04/25 08:00 Pulse Rate 85 04/04/25 11:31 Respiratory Rate 18 04/04/25 11:31 Respiratory Effort Normal, Non-Labored 04/04/25 08:00 Respiratory Depth Normal 04/04/25 08:00 Respiratory Pattern Normal 04/04/25 11:31 Blood Pressure 125/114 H 04/04/25 11:00 Blood Pressure Mean 117 04/04/25 11:00 Blood Pressure Source Monitor 04/04/25 11:00 Blood Pressure Position Semi-Fowlers 04/04/25 11:00 Blood Pressure Location Right Arm 04/04/25 11:00 Pulse Ox 99 04/04/25 11:00 Oxygen Delivery Method Nasal Cannula 04/04/25 11:00 Oxygen Flow Rate (L/min) 3 04/04/25 11:01 Fraction of Inspired Oxygen (FIO2) 30 04/03/25 18:45 I&O: I&O Last 24 Hours 3 04/03/25 04/04/25 04/04/25 23:59 11:59 23:59 Intake Total 408.88 / 713.88 22.95 / 22.95 Output Total 350 / 350 Balance 58.88 / 363.88 22.95 / 22.95 I&O: Total Stay 3 04/02/25 23:59 thru 04/04/25 11:45 Intake Total 736.83 Output Total 350 Balance 386.83 Current Meds Ordered / Administered: Current meds ordered / Administered 3 Generic Name Dose Route Start Last Admin Trade Name Freq PRN Reason Stop Dose Admin Acetaminophen 650 mg 04/03/25 05:17 Acetaminophen 325 Mg Tablet PO Q4H PRN PRN Fever, pain 1-08/10 Al Hydroxide/Mg Hydroxide 30 ml 04/03/25 05:17 Mag Hydrox/Al Hydrox/Simeth 30 Ml Udc PO Q6H PRN PRN Gastric Burning Albuterol Sulfate 2.5 mg 04/03/25 05:17 04/03/25 11:06 Albuterol 2.5 Mg/3 Ml Vial.Neb. INHALATION 2.5 mg Q2H PRN PRN Administration Dyspnea, wheezing Albuterol/Ipratropium 3 ml 04/03/25 05:17 04/04/25 11:27 Ipratropium/Albuterol Sulfate 3 Ml Ampul.Neb INHALATION 3 ml Q4HWA.RT DIDI Administration Amlodipine Besylate 10 mg 04/03/25 12:00 04/04/25 12:12 Amlodipine 10 Mg Tablet PO 10 mg 1200 DIDI Administration Protocol Aspirin 81 mg 04/03/25 08:00 04/04/25 10:50 Aspirin E.C. 81 Mg Tablet PO 81 mg BREAKFAST DIDI Administration Ezetimibe 10 mg 04/03/25 10:00 04/04/25 10:55 Ezetimibe 10 Mg Tablet PO 10 mg DAILY DIDI Administration Furosemide 40 mg 04/03/25 10:00 04/03/25 16:45 Furosemide 40 Mg/4 Ml Vial IV 40 mg BID@1000,1800 DIDI Administration Glucagon 1 mg 04/03/25 05:17 Glucagon 1 Mg/Ml Syringe IM X1 PRN HYPOGLYCEMIA Protocol Guaifenesin 10 ml 04/03/25 05:17 Guaifenesin 10 Ml Udc (200mg/10ml) PO Q4H PRN PRN COUGH Heparin Sodium (Porcine) 5,000 unit 04/03/25 22:00 04/04/25 05:39 Heparin Injection (Vial) 5,000 Unit/Ml Vial SC 5,000 unit Q8 DIDI Administration Hydralazine HCl 50 mg 04/03/25 06:00 04/04/25 05:37 Hydralazine 50 Mg Tablet PO Not Given Q8 DIDI Protocol Hydralazine HCl 10 mg 04/03/25 05:17 Hydralazine 20 Mg/Ml Vial IV Q4H PRN PRN SBP > 160 Protocol Azithromycin 500 mg/ Sodium 255 mls @ 255 mls/hr 04/03/25 22:00 04/03/25 22:33 Chloride IV Infused Q24H DIDI Infusion Ceftriaxone Sodium 1 gm in 50 mls @ 100 mls/hr 04/03/25 22:00 04/03/25 23:16 Rocephin IV Infused Q24H DIDI Infusion Dextrose 250 mls @ 0 mls/hr 04/03/25 05:17 Dextrose 10%-Water IV .Q0M PRN HYPOGLYCEMIA Protocol As Directed Sodium Chloride 250 mls @ 15 mls/hr 04/03/25 05:18 IV .[id number] PRN Saline Flush Sodium Chloride 250 mls @ 15 mls/hr 04/03/25 05:18 IV .[id number] PRN Additional IVPB Infusion Dextrose 250 mls @ 999 mls/hr 04/03/25 13:17 Dextrose 10%-Water IV .Q16M PRN Hypoglycemic Protocol Protocol Dextrose/Sodium Chloride 1,000 mls @ 60 mls/hr 04/03/25 22:35 04/03/25 23:16 IV 60 mls/hr .[id number] DIDI Administration Insulin Glargine 15 unit 04/04/25 08:50 04/04/25 10:55 Insulin Glargine-Yfgn 100 Unit/Ml Pen SC 15 unit DAILY DIDI Administration Lisinopril 5 mg 04/03/25 10:00 04/03/25 07:58 Lisinopril 5 Mg Tablet PO 5 mg DAILY DIDI Administration Protocol Melatonin 3 mg 04/03/25 05:17 Melatonin 3 Mg Tablet PO QHS PRN PRN INSOMNIA Metoprolol Succinate 25 mg 04/03/25 10:00 04/04/25 10:55 Metoprolol(Xl)Succ 25 Mg Tablet PO 25 mg DAILY DIDI Administration Protocol Nitroglycerin 0.4 mg 04/03/25 05:17 Nitroglycerin (Inpatient Use) 0.4 Mg Tab.Subl SL Q5M PRN CARDIAC/CHEST PAIN Ondansetron HCl 4 mg 04/03/25 05:17 Ondansetron 4 Mg/2 Ml Vial IV Q8H PRN PRN NAUSEA/VOMITING Potassium Chloride 20 meq 04/03/25 08:00 04/04/25 10:50 Potassium Chloride Oral Tablet 20 Meq PO 20 meq BIDCM DIDI Administration Prednisone 40 mg 04/05/25 08:00 Prednisone 20 Mg Tablet PO 04/10/25 08:01 BREAKFAST DIDI Prochlorperazine Edisylate 5 mg 04/03/25 05:17 Prochlorperazine 10 Mg/2 Ml Vial IV Q4H PRN PRN Breakthrough Nausea/Vomiting Senna/Docusate Sodium 2 tablet 04/03/25 05:17 Senna/Docusate Sodium 1 Tablet PO BID PRN PRN Constipation Sodium Chloride 10 - 40 ml 04/03/25 05:18 04/03/25 21:38 0.9% Saline Lock 10 Ml Syringe IV 10 ml UD PRN Administration SALINE FLUSH Tamsulosin HCl 0.4 mg 04/03/25 17:30 04/03/25 16:45 Tamsulosin Hcl 0.4 Mg Capsule PO 0.4 mg Ayla@1119 DIDI Administration Lab / Micro Data 04/04/25 03:15 04/04/25 13:45 Labs: Laboratory Results - last 24 hr 04/03/25 12:50: POC Glucose > 500 H* 04/03/25 13:54: POC Glucose > 500 H* 04/03/25 14:50: Sodium 133, Potassium 4.4, Chloride 98, Carbon Dioxide 13.6 L, Anion Gap 21 H, BUN 58 H, Creatinine 2.67 H, Estim Creat Clear Calc 18.87 L, Est GFR (MDRD) Non-Af 23 L, BUN/Creatinine Ratio 21.7 H, Glucose 638 H*, Calcium 8.6 04/03/25 14:51: POC Glucose > 500 H* 04/03/25 16:04: POC Glucose 496 H* 04/03/25 17:23: POC Glucose 454 H* 04/03/25 18:09: POC Glucose 363 H 04/03/25 18:50: Sodium 135, Potassium 4.3, Chloride 100, Carbon Dioxide 16.9 L, Anion Gap 18 H, BUN62 H, Creatinine 2.73 H, Estim Creat Clear Calc 18.46 L, EstGFR (MDRD) Non-Af 23 L, BUN/Creatinine Ratio 22.9 H, Glucose 407 H, Calcium 9.0 04/03/25 18:58: POC Glucose 366 H 04/03/25 20:11: POC Glucose 317 H 04/03/25 21:27: POC Glucose 284 H 04/03/25 22:20: POC Glucose 250 H 04/03/25 23:10: Sodium 136, Potassium 4.5, Chloride 102, Carbon Dioxide 17.3 L, Anion Gap 16 H, BUN66 H, Creatinine 3.02 H, Estim Creat Clear Calc 16.69 L, EstGFR (MDRD) Non-Af 20 L, BUN/Creatinine Ratio 21.7 H, Glucose 275 H, Calcium 8.5 04/03/25 23:12: POC Glucose 261 H 04/04/25 00:03: POC Glucose 235 H 04/04/25 01:02: POC Glucose 229 H 04/04/25 03:15: WBC 22.0 H, RBC 2.47 L, Hgb 7.4 L, Hct 22.8 L, MCV 92.3, MCH 30.0, MCHC 32.5, RDW Std Deviation 45.9 H, RDW Coeff of Humaira 13.6, Plt Count 230,MPV 11.4, Immature Gran % (Auto) 0.600, Neut % (Auto) 90.4 H, Lymph % (Auto) 4.9L, Ada % (Auto) 4.0, Eos % (Auto) 0.0, Baso % (Auto) 0.1, Absolute Neuts (auto)19.9 H, Absolute Lymphs (auto) 1.08, Nucleated RBC % 0, Sodium 136, Potassium 4.6,Chloride 103, Carbon Dioxide 17.8 L, Anion Gap 15, BUN 69 H, Creatinine 3.26 H, Estim Creat Clear Calc 15.61 L, Est GFR (MDRD) Non-Af 18 L, BUN/Creatinine Ratio 21.1 H, Glucose 203 H, Calcium 8.6 04/04/25 03:17: POC Glucose 174 H 04/04/25 04:12: POC Glucose 178 H 04/04/25 06:04: POC Glucose 183 H 04/04/25 06:50: Sodium 137, Potassium 5.0, Chloride 104, Carbon Dioxide 17.5 L, Anion Gap 15, BUN 70 H, Creatinine 3.34 H, Estim Creat Clear Calc 15.24 L, Est GFR (MDRD) Non-Af 18 L, BUN/Creatinine Ratio 21.0 H, Glucose 208 H, Calcium 8.7 04/04/25 07:44: POC Glucose 209 H 04/04/25 10:02: POC Glucose 164 H Micro: Microbiology 04/03/25 05:46 Wound - Elbow Skin and Soft Tissue MRSA/MSSA (PCR - Final Rhythm Strip Rhythm Strip: Sinus Rhythm Rate: 86 Assessment and Plan . Assessment and plan: HPI Patient seen and examined Chart and data reviewed He is in NAD - breathing O2 2-3 LPM at rest Lab reviewed - NT-p-BNP 6600 Diuretics are currently held CT chest reviewed - looks like CHF TTE noted - reduced LVSF, moderate MR, elevated PASP EXAM GEN NAD VS as above HEENT o/p clear NECK obese COR RRR CHEST basilar crackles ABD soft EXT minimal edema SKIN w/d NISREEN NF ASSESSMENT/PLAN 1. Dyspnea / hypoxemia 2. Decompensated CHF w/ edema and effusions 3. Markedly elevated NT-p-BNP 4. Decreased LVSF w/ MR and PAH 5. Tobacco use and possible COPD 6. Anemia -supplemental O2 as needed -would keep in (-) fluid balance - defer to cardiology -inhaled BD and short course steroids -would stop ABX -VTE ppx Critical Care Time: 50 minutes The entirety of this encounter was done via Telemedicine 04/04/25 2349 Cosigner Signature (if applicable): CC: ~ Signed [facility]06-04-2025 Progress note Author Breezy Campbell [facility] Note Date/Time April 04, 2025 10:35 am [facility] Medical Records Department [address] [place] [address] Progress Note - Cardiology 04/04/25 1028 MR#: [id number] Acct: [id number] Name: ENOC ARMANDO Rep #:[id number] : 1945 79 From: Breezy Campbell MD PCP: Dr. Ryley Jeter MD Status:ADM IN Location: ICU ICU04-1 Subjective Subjective Has not been able to obtain records from [facility] for his catheterization within the past 2 years. However I was able to better communicate with the patient he says they told him his left ventricle was not functioning normally and he had 2 blockages that were not amenable to revascularization. The patient is now on nasal cannula he does have some conversational dyspnea when talking to me. Objective Data Vital Signs: Vital Signs Temp Pulse Resp BP Pulse Ox O2 Del Method O2 Flow Rate 98.1 F 82 15 113/50 L 99 Nasal Cannula 3 04/04/25 00:00 04/04/25 07:00 04/04/25 07:00 04/04/25 07:00 04/04/25 07:00 04/04/25 07:00 04/04/25 07:00 FiO2 30 04/03/25 18:45 Oxygen Flow Rate (L/min) 3 Oxygen Delivery Method Nasal Cannula Weight: 136 lb 14.513 oz Body Mass Index (BMI) 21.4 Intake & Output: Intake and Output for Last 24 Hours 04/02/25 04/03/25 04/04/25 23:59 23:59 23:59 Intake Total 713.88 / 713.88 22. / 22.95 Output Total 350 / 350 Balance 363.88 / 363.88 22. / 22.95 Lab / Micro Data Attestation: I reviewed the patient's lab results. 04/04/25 03:15 04/04/25 06:50 Labs: Laboratory Results - last 24 hr 04/03/25 11:37: POC Glucose > 500 H* 04/03/25 12:10: APTT 212.0 H* 04/03/25 12:50: POC Glucose > 500 H* 04/03/25 13:54: POC Glucose > 500 H* 04/03/25 14:50: Sodium 133, Potassium 4.4, Chloride 98, Carbon Dioxide 13.6 L, Anion Gap 21 H, BUN 58 H, Creatinine 2.67 H, Estim Creat Clear Calc 18.87 L, Est GFR (MDRD) Non-Af 23 L, BUN/Creatinine Ratio 21.7 H, Glucose 638 H*, Calcium 8.6 04/03/25 14:51: POC Glucose > 500 H* 04/03/25 16:04: POC Glucose 496 H* 04/03/25 17:23: POC Glucose 454 H* 04/03/25 18:09: POC Glucose 363 H 04/03/25 18:50: Sodium 135, Potassium 4.3, Chloride 100, Carbon Dioxide 16.9 L, Anion Gap 18 H, BUN 62 H, Creatinine 2.73 H, Estim Creat Clear Calc 18.46 L, EstGFR (MDRD) Non-Af 23 L, BUN/Creatinine Ratio 22.9 H, Glucose 407 H, Calcium 9.0 04/03/25 18:58: POC Glucose 366 H 04/03/25 20:11: POC Glucose 317 H 04/03/25 21:27: POC Glucose 284 H 04/03/25 22:20: POC Glucose 250 H 04/03/25 23:10: Sodium 136, Potassium 4.5, Chloride 102, Carbon Dioxide 17.3 L, Anion Gap 16 H, BUN 66 H, Creatinine 3.02 H, Estim Creat Clear Calc 16.69 L, EstGFR (MDRD) Non-Af 20 L, BUN/Creatinine Ratio 21.7 H, Glucose 275 H, Calcium 8.5 04/03/25 23:12: POC Glucose 261 H 04/04/25 00:03: POC Glucose 235 H 04/04/25 01:02: POC Glucose 229 H 04/04/25 03:15: WBC 22.0 H, RBC 2.47 L, Hgb 7.4 L, Hct 22.8 L, MCV 92.3, MCH 30.0, MCHC 32.5, RDW Std Deviation 45.9 H, RDW Coeff of Humaira 13.6, Plt Count 230,MPV 11.4, Immature Gran % (Auto) 0.600, Neut % (Auto) 90.4 H, Lymph % (Auto) 4.9L, Ada % (Auto) 4.0, Eos % (Auto) 0.0, Baso % (Auto) 0.1, Absolute Neuts (auto)19.9 H, Absolute Lymphs (auto) 1.08, Nucleated RBC % 0, Sodium 136, Potassium 4.6, Chloride 103, Carbon Dioxide 17.8 L, Anion Gap 15, BUN 69 H, Creatinine 3.26 H, Estim Creat Clear Calc 15.61 L, Est GFR (MDRD) Non-Af 18 L, BUN/Creatinine Ratio 21.1 H, Glucose 203 H, Calcium 8.6 04/04/25 03:17: POC Glucose 174 H 04/04/25 04:12: POC Glucose 178 H 04/04/25 06:04: POC Glucose 183 H 04/04/25 06:50: Sodium 137, Potassium 5.0, Chloride 104, Carbon Dioxide 17.5 L, Anion Gap 15, BUN 70 H, Creatinine 3.34 H, Estim Creat Clear Calc 15.24 L, Est GFR (MDRD) Non-Af 18 L, BUN/Creatinine Ratio 21.0 H, Glucose 208 H, Calcium 8.7 04/04/25 07:44: POC Glucose 209 H 04/04/25 10:02: POC Glucose 164 H Micro: Microbiology 04/03/25 05:46 Wound - Elbow Skin and Soft Tissue MRSA/MSSA (PCR - Final 04/03/25 05:10 Mucosa - Nasopharyngeal Respiratory Panel (PCR) - Final 04/03/25 05:51 Urine, Clean Catch Legionella Antigen - Final 04/03/25 05:51 Urine Catheter - Catheter Streptococcus pneumoniae Antigen (M- Final Rhythm Strip Rhythm Strip: Sinus Rhythm Rate: 86 Cardiology Labs/Tests 04/03/25 12:10: APTT 212.0 H* 04/03/25 14:50: Sodium 133, Potassium 4.4, Chloride 98, Carbon Dioxide 13.6 L, Anion Gap 21 H, BUN 58 H, Creatinine 2.67 H, Est GFR (MDRD) Non-Af 23 L, BUN/Creatinine Ratio 21.7 H, Glucose 638 H*, Calcium 8.6 04/03/25 18:50: Sodium 135, Potassium 4.3, Chloride 100, Carbon Dioxide 16.9 L, Anion Gap 18 H, BUN 62 H, Creatinine 2.73 H, Est GFR (MDRD) Non-Af 23 L, BUN/Creatinine Ratio 22.9 H, Glucose 407 H, Calcium 9.0 04/03/25 23:10: Sodium 136, Potassium 4.5, Chloride 102, Carbon Dioxide 17.3 L, Anion Gap 16 H, BUN 66 H, Creatinine 3.02 H, Est GFR (MDRD) Non-Af 20 L, BUN/Creatinine Ratio 21.7 H, Glucose 275 H, Calcium 8.5 04/04/25 03:15: WBC 22.0 H, RBC 2.47 L, Hgb 7.4 L, Hct 22.8 L, MCV 92.3, MCH 30.0, MCHC 32.5, Plt Count 230, MPV 11.4, Immature Gran % (Auto) 0.600, Neut % (Auto) 90.4 H, Lymph % (Auto) 4.9 L, Ada % (Auto) 4.0, Eos % (Auto) 0.0, Baso %(Auto) 0.1, Absolute Neuts (auto) 19.9 H, Nucleated RBC % 0, Sodium 136, Potassium 4.6, Chloride 103, Carbon Dioxide 17.8 L, Anion Gap 15, BUN 69 H, Creatinine 3.26 H, Est GFR (MDRD) Non-Af 18 L, BUN/Creatinine Ratio 21.1 H, Glucose 203 H, Calcium 8.6 04/04/25 06:50: Sodium 137, Potassium 5.0, Chloride 104, Carbon Dioxide 17.5 L, Anion Gap 15, BUN 70 H, Creatinine 3.34 H, Est GFR (MDRD) Non-Af 18 L, BUN/Creatinine Ratio 21.0 H, Glucose 208 H, Calcium 8.7 Rhythm: EKG: ECHO: Stress Test: Cardiac Cath: PCI: CT Surgery: Holter monitor: EPS: PPM: CXR: Chest CT Scan: Radiography Diagnostic Testing: Radiology Impression Echocardiogram 04/03/25 05:55 Interpretation Summary Mid to distal anterior septal, inferior septal, inferior and posterior hypokinesis. Estimated LVEF 40%. Stage I diastolic dysfunction. The left atrium is mildly enlarged. Severe mitral annular calcification. Moderate (2+) posteriorly directed mitral valve insufficiency. Right ventricular systolic pressure estimated to be 41 mmHg. Aortic sclerosis, no stenosis. Ordering Physician: Dyana Hwang Performed By: Fiordaliza Edgar RDCS and Student Physical Exam Const alert and oriented x3 HEENT normocephalic Eyes EOMs intact bilaterally Neck no JVD Neck Narrative: No JVD at 90 degrees Resp normal respiratory effort Auscultation: diminished lung sounds bilateral lower Cardio Rate: regular rate Rhythm: regular rhythm Heart Sounds: S1 normal and S2 normal; Negative for click, gallop or murmur Extremity no pedal edema Neuro Neuro Narrative: Alert and oriented x 3 Psych mental status grossly normal Assessment & Plan Assessment/Plan (1) LV dysfunction: PLAN: The patient carries a history of eject fraction of 40% by echo this admission. He reports to me he was told his heart muscle did not function normally had a catheterization within the last 2 years at [facility]. He also had 2 blockages that were not amenable to revascularization. The patient deniesany anginal symptoms. He has no lower extremity edema he has no JVD at 90 degrees. His creatinine is slowly climbing and this may suggest that he is relatively intravascularly depleted. Agree with holding his diuretic therapy for the time being. Agree with the other current medical regiment for his LV dysfunction with his hydralazine. (2) CKD (chronic kidney disease), stage III: QUALIFIERS: Chronic kidney disease stage 3 subtype: stage 3b (GFR 30-44) Qualified Code(s): N18.32 - Chronic kidney disease, stage 3b PLAN: Creatinine continues to climb slowly is up to 3 today. Further managementper the primary service. It does not appear that his LV ejection fraction of 40% would be the sole etiology of this decline in his renal function. (3) HTN (hypertension): QUALIFIERS: Hypertension type: primary hypertension Qualified Code(s): I10 - Essential (primary) hypertension PLAN: Blood pressure is adequately controlled on his current medical therapy. (4) Anemia: QUALIFIERS: Anemia type: unspecified type Qualified Code(s): D64.9 - Anemia, unspecified PLAN: Patient's hemoglobin is 7.4 today. I recommend considering transfusing him up to above 8 for assistance with his LV dysfunction and respiratory status. Will defer to the primary service. PLAN: Plan 1. Agree with can continuing the current medical plan. 2. Consider transfusing given his hemoglobin of 7.4. 3. Dr. Martin will be available if further consultation is necessary. 4. Once the patient is discharged if he wishes to follow-up with cardiology, hehas not in the past, would be willing to see him in the [facility] in 7to 10 days after discharge. Charges/Coding Visit Charges Inpatient E&M: 45948 Subs Hosp L3 04/04/25 1035 <Electronically signed by Breezy Campbell MD> Cosigner Signature (if applicable): CC: ~ Signed [facility] Work Phone: [phone]) 777-219606-04-2025 Progress note [facility] Medical Records Department [address] [place] [address] Progress Note - Cardiology 04/04/25 1028 MR#: [id number] Acct: [id number] Name: ENOC ARMANDO Rep #:[id number] : 1945 79 From: Breezy Campbell MD PCP: Dr. Ryley Jeter MD Status:ADM IN Location: ICU ICU04-1 Subjective Subjective Has not been able to obtain records from [facility] for his catheterization within the past 2 years.However I was able to better communicate with the patient he says they told him his left ventricle was not functioning normally and he had 2 blockages that were not amenable to revascularization. The patient is now on nasal cannula he does have some conversational dyspnea when talking to me. Objective Data Vital Signs: Vital Signs Temp Pulse Resp BP Pulse Ox O2 Del Method O2 Flow Rate 98.1 F 82 15 113/50 L 99 Nasal Cannula 3 04/04/25 00:00 04/04/25 07:00 04/04/25 07:00 04/04/25 07:00 04/04/25 07:00 04/04/25 07:00 04/04/25 07:00 FiO2 30 04/03/25 18:45 Oxygen Flow Rate (L/min) 3 Oxygen Delivery Method Nasal Cannula Weight: 136 lb 14.513 oz Body Mass Index (BMI) 21.4 Intake & Output: Intake and Output for Last 24 Hours 04/02/25 04/03/25 04/04/25 23:59 23:59 23:59 Intake Total 713.88 / 713.88 22.95 / 22.95 Output Total 350 / 350 Balance 363.88 / 363.88 22.95 / 22.95 Lab / Micro Data Attestation: I reviewed the patient's lab results. 04/04/25 03:15 04/04/25 06:50 Labs: Laboratory Results - last 24 hr 04/03/25 11:37: POC Glucose > 500 H* 04/03/25 12:10: APTT 212.0 H* 04/03/25 12:50: POC Glucose > 500 H* 04/03/25 13:54: POC Glucose > 500 H* 04/03/25 14:50: Sodium 133, Potassium 4.4, Chloride 98, Carbon Dioxide 13.6 L, Anion Gap 21 H, BUN 58 H, Creatinine 2.67 H, Estim Creat Clear Calc 18.87 L, Est GFR (MDRD) Non-Af 23 L, BUN/Creatinine Ratio 21.7 H, Glucose 638 H*, Calcium 8.6 04/03/25 14:51: POC Glucose > 500 H* 04/03/25 16:04: POC Glucose 496 H* 04/03/25 17:23: POC Glucose 454 H* 04/03/25 18:09: POC Glucose 363 H 04/03/25 18:50: Sodium 135, Potassium 4.3, Chloride 100, Carbon Dioxide 16.9 L, Anion Gap 18 H, BUN62 H, Creatinine 2.73 H, Estim Creat Clear Calc 18.46 L, EstGFR (MDRD) Non-Af 23 L, BUN/Creatinine Ratio 22.9 H, Glucose 407 H, Calcium 9.0 04/03/25 18:58: POC Glucose 366 H 04/03/25 20:11: POC Glucose 317 H 04/03/25 21:27: POC Glucose 284 H 04/03/25 22:20: POC Glucose 250 H 04/03/25 23:10: Sodium 136, Potassium 4.5, Chloride 102, Carbon Dioxide 17.3 L, Anion Gap 16 H, BUN66 H, Creatinine 3.02 H, Estim Creat Clear Calc 16.69 L, EstGFR (MDRD) Non-Af 20 L, BUN/Creatinine Ratio 21.7 H, Glucose 275 H, Calcium 8.5 04/03/25 23:12: POC Glucose 261 H 04/04/25 00:03: POC Glucose 235 H 04/04/25 01:02: POC Glucose 229 H 04/04/25 03:15: WBC 22.0 H, RBC 2.47 L, Hgb 7.4 L, Hct 22.8 L, MCV 92.3, MCH 30.0, MCHC 32.5, RDW Std Deviation 45.9 H, RDW Coeff of Humaira 13.6, Plt Count 230,MPV 11.4, Immature Gran % (Auto) 0.600, Neut % (Auto) 90.4 H, Lymph % (Auto) 4.9L, Ada % (Auto) 4.0, Eos % (Auto) 0.0, Baso % (Auto) 0.1, Absolute Neuts (auto)19.9 H, Absolute Lymphs (auto) 1.08, Nucleated RBC % 0, Sodium 136, Potassium 4.6,Chloride 103, Carbon Dioxide 17.8 L, Anion Gap 15, BUN 69 H, Creatinine 3.26 H, Estim Creat Clear Calc 15.61 L, Est GFR (MDRD) Non-Af 18 L, BUN/Creatinine Ratio 21.1 H, Glucose 203 H, Calcium 8.6 04/04/25 03:17: POC Glucose 174 H 04/04/25 04:12: POC Glucose 178 H 04/04/25 06:04: POC Glucose 183 H 04/04/25 06:50: Sodium 137, Potassium 5.0, Chloride 104, Carbon Dioxide 17.5 L, Anion Gap 15, BUN 70 H, Creatinine 3.34 H, Estim Creat Clear Calc 15.24 L, Est GFR (MDRD) Non-Af 18 L, BUN/Creatinine Ratio 21.0 H, Glucose 208 H, Calcium 8.7 04/04/25 07:44: POC Glucose 209 H 04/04/25 10:02: POC Glucose 164 H Micro: Microbiology 04/03/25 05:46 Wound - Elbow Skin and Soft Tissue MRSA/MSSA (PCR - Final 04/03/25 05:10 Mucosa - Nasopharyngeal Respiratory Panel (PCR) - Final 04/03/25 05:51 Urine, Clean Catch Legionella Antigen - Final 04/03/25 05:51 Urine Catheter - Catheter Streptococcus pneumoniae Antigen (M- Final Rhythm Strip Rhythm Strip: Sinus Rhythm Rate: 86 Cardiology Labs/Tests 04/03/25 12:10: APTT 212.0 H* 04/03/25 14:50: Sodium 133, Potassium 4.4, Chloride 98, Carbon Dioxide 13.6 L, Anion Gap 21 H, BUN 58 H, Creatinine 2.67 H, Est GFR (MDRD) Non-Af 23 L, BUN/Creatinine Ratio 21.7 H, Glucose 638 H*, Calcium 8.6 04/03/25 18:50: Sodium 135, Potassium 4.3, Chloride 100, Carbon Dioxide 16.9 L, Anion Gap 18 H, BUN62 H, Creatinine 2.73 H, Est GFR (MDRD) Non-Af 23 L, BUN/Creatinine Ratio 22.9 H, Glucose 407 H, Calcium 9.0 04/03/25 23:10: Sodium 136, Potassium 4.5, Chloride 102, Carbon Dioxide 17.3 L, Anion Gap 16 H, BUN66 H, Creatinine 3.02 H, Est GFR (MDRD) Non-Af 20 L, BUN/Creatinine Ratio 21.7 H, Glucose 275 H, Calcium 8.5 04/04/25 03:15: WBC 22.0 H, RBC 2.47 L, Hgb 7.4 L, Hct 22.8 L, MCV 92.3, MCH 30.0, MCHC 32.5, Plt Count 230, MPV 11.4, Immature Gran % (Auto) 0.600, Neut % (Auto) 90.4 H, Lymph % (Auto) 4.9 L, Ada %(Auto) 4.0, Eos % (Auto) 0.0, Baso %(Auto) 0.1, Absolute Neuts (auto) 19.9 H, Nucleated RBC % 0, Sodium 136, Potassium 4.6, Chloride 103, Carbon Dioxide 17.8 L, Anion Gap 15, BUN 69 H, Creatinine 3.26 H, Est GFR (MDRD) Non-Af 18 L, BUN/Creatinine Ratio 21.1 H, Glucose 203 H, Calcium 8.6 04/04/25 06:50: Sodium 137, Potassium 5.0, Chloride 104, Carbon Dioxide 17.5 L, Anion Gap 15, BUN 70 H, Creatinine 3.34 H, Est GFR (MDRD) Non-Af 18 L, BUN/Creatinine Ratio 21.0 H, Glucose 208 H, Calcium 8.7 Rhythm: EKG: ECHO: Stress Test: Cardiac Cath: PCI: CT Surgery: Holter monitor: EPS: PPM: CXR: Chest CT Scan: Radiography Diagnostic Testing: Radiology Impression Echocardiogram 04/03/25 05:55 Interpretation Summary Mid to distal anterior septal, inferior septal, inferior and posterior hypokinesis. Estimated LVEF 40%. Stage I diastolic dysfunction. The left atrium is mildly enlarged. Severe mitral annular calcification. Moderate (2+) posteriorly directed mitral valve insufficiency. Right ventricular systolic pressure estimated to be 41 mmHg. Aortic sclerosis, no stenosis. Ordering Physician: Dyana Hwang Performed By: Fiordaliza Edgar RDCS and Student Physical Exam Const alert and oriented x3 HEENT normocephalic Eyes EOMs intact bilaterally Neck no JVD Neck Narrative: No JVD at 90 degrees Resp normal respiratory effort Auscultation: diminished lung sounds bilateral lower Cardio Rate: regular rate Rhythm: regular rhythm Heart Sounds: S1 normal and S2 normal; Negative for click, gallop or murmur Extremity no pedal edema Neuro Neuro Narrative: Alert and oriented x 3 Psych mental status grossly normal Assessment & Plan Assessment/Plan (1) LV dysfunction: PLAN: The patient carries a history of eject fraction of 40% by echo this admission. He reports to me he was told his heart muscle did not function normally had a catheterization within the last 2 years at [place]. He also had 2 blockages that were not amenable to revascularization. The patient deniesany anginal symptoms. He has no lower extremity edema he has no JVD at 90 degrees. His creatinine is slowly climbing and this may suggest that he is relatively intravascularly depleted. Agree with holding his diuretic therapy for the time being. Agree with the other current medical regiment for his LV dysfunction with his hydralazine. (2) CKD (chronic kidney disease), stage III: QUALIFIERS: Chronic kidney disease stage 3 subtype: stage 3b (GFR 30-44) Qualified Code(s): N18.32 - Chronic kidney disease, stage 3b PLAN: Creatinine continues to climb slowly is up to 3 today. Further managementper the primary service. It does not appear that his LV ejection fraction of 40% would be the sole etiology of this decline in his renal function. (3) HTN (hypertension): QUALIFIERS: Hypertension type: primary hypertension Qualified Code(s): I10 - Essential (primary) hypertension PLAN: Blood pressure is adequately controlled on his current medical therapy. (4) Anemia: QUALIFIERS: Anemia type: unspecified type Qualified Code(s): D64.9 - Anemia, unspecified PLAN: Patient's hemoglobin is 7.4 today. I recommend considering transfusing him up to above 8 for assistance with his LV dysfunction and respiratory status. Will defer to the primary service. PLAN: Plan 1. Agree with can continuing the current medical plan. 2. Consider transfusing given his hemoglobin of 7.4. 3. Dr. Martin will be available if further consultation is necessary. 4. Once the patient is discharged if he wishes to follow-up with cardiology, hehas not in the past,would be willing to see him in the [facility] in 7to 10 days after discharge. Charges/Coding Visit Charges Inpatient E&M: 46115 Subs Hosp 04/04/25 1035 Cosigner Signature (if applicable): CC: ~ Signed [facility]06-03-2025 Progress note Author Grace Arnold [facility] Note Date/Time April 03, 2025 5:08p m [facility] Medical Records Department [address] [place] [address] Progress Note 04/03/25 1352 MR#: [id number] Acct: [id number] Name: ENOC ARMANDO Rep #:[id number] : 1945 79 From: Grace Arnold MD PCP: Dr. Ryley Jeter MD Status:ADM IN Location: ICU ICU04-1 Subjective Subjective Patient seen and examined. He was on BiPAP. He admitted to feeling short of breath. He denied any chest pain or palpitations, dizziness, nausea or vomitingor any other symptoms.. Systems otherwise negative. Blood sugars have been poorly controlled. Objective Data Objective Data Vital Signs: Vital Signs Temp Pulse Resp BP Pulse Ox O2 Del Method O2 Flow Rate 98.4 F 95 20 H 119/48 L 99 Bi-pap 2 04/03/25 12:00 04/03/25 12:54 04/03/25 12:00 04/03/25 12:54 04/03/25 12:00 04/03/25 12:00 04/03/25 09:36 FiO2 30 04/03/25 12:00 Oxygen Flow Rate (L/min) 2 Oxygen Delivery Method Bi-pap Weight: 135 lb 9.349 oz Body Mass Index (BMI) 21.2 Intake & Output: Intake and Output for Last 24 Hours 04/01/25 04/02/25 04/03/25 23:59 23:59 23:59 Intake Total 371 / 371 Output Total 350 / 350 Balance Lab / Micro Data 04/03/25 05:32 04/03/25 14:50 Labs: Laboratory Results - last 24 hr 04/03/25 00:05: WBC 15.7 H, RBC 3.41 L, Hgb 10.2 L, Hct 32.2 L, MCV 94.4 H, MCH 29.9, MCHC 31.7 L, RDW Std Deviation 45.3 H, RDW Coeff of Humaira 13.2, Plt Count 300, MPV 10.8, Immature Gran % (Auto) 0.600, Neut % (Auto) 76.4 H, Lymph % (Auto) 13.5 L, Ada % (Auto) 7.0, Eos % (Auto) 1.9, Baso % (Auto) 0.6, Absolute Neuts (auto) 12.0 H, Absolute Lymphs (auto) 2.12, Nucleated RBC % 0, PT 13.4, INR 1.0, APTT 37.3 H, D-Dimer Quant (PE/DVT) 1.86 H*, Sodium 139, Potassium 4.4,Chloride 104, Carbon Dioxide 20.8 L, Anion Gap 14, BUN 42 H, Creatinine 1.88 H, Estim Creat Clear Calc 28.20 L, Est GFR (MDRD) Non-Af 35 L, BUN/Creatinine Ratio22.3 H, Glucose 255 H, Calcium 8.8, Troponin T High Sens 58 H*, NT pro BNP II 6552 H 04/03/25 02:25: Lactic Acid 1.3 04/03/25 02:45: Magnesium 2.3 H, Troponin T Hi Sens 2 Hr 76 H* 04/03/25 04:20: Troponin T Hi Sens 4Hr 80 H* 04/03/25 05:32: WBC 13.0 H, RBC 3.09 L, Hgb 9.3 L, Hct 28.9 L, MCV 93.5, MCH 30.1, MCHC 32.2, RDW Std Deviation 45.9 H, RDW Coeff of Humaira 13.4, Plt Count 268,MPV 11.4, Immature Gran % (Auto) 0.500, Neut % (Auto) 94.8 H, Lymph % (Auto) 3.3L, Ada % (Auto) 1.1, Eos % (Auto) 0.0, Baso % (Auto) 0.3, Absolute Neuts (auto)12.4 H, Absolute Lymphs (auto) 0.43 L, Nucleated RBC % 0, Sodium 137, Potassium 4.5, Chloride 104, Carbon Dioxide 15.5 L, Anion Gap 18 H, BUN 44 H, Creatinine 1.77 H, Estim Creat Clear Calc 28.47 L, Est GFR (MDRD) Non-Af 38 L, BUN/Creatinine Ratio 24.6 H, Glucose 428 H, Calcium 7.9, Total Bilirubin 0.38, AST 24, ALT 16, Alkaline Phosphatase 80, Total Protein 6.0, Albumin 3.6, Globulin 2.4, Albumin/Globulin Ratio 1.5, Triglycerides 44, Cholesterol 137, LDLCholesterol, Calc 80, VLDL Cholesterol 9, HDL Cholesterol 48, Cholesterol/HDL Ratio 2.87, Procalcitonin 0.31 H, TSH 0.530 04/03/25 05:53: POC Glucose 435 H 04/03/25 11:37: POC Glucose > 500 H* 04/03/25 12:10: APTT 212.0 H* 04/03/25 12:50: POC Glucose > 500 H* Micro: Microbiology 04/03/25 05:46 Wound - Elbow Skin and Soft Tissue MRSA/MSSA (PCR - Final 04/03/25 05:10 Mucosa - Nasopharyngeal Respiratory Panel (PCR) - Final 04/03/25 05:51 Urine, Clean Catch Legionella Antigen - Final 04/03/25 05:51 Urine Catheter - Catheter Streptococcus pneumoniae Antigen (M- Final 04/03/25 00:25 Mucosa - Nose SARS-CoV-2, Influenza & RSV (PCR) - Final ABG Data ABG results: ABG 04/03/25 04/03/25 00:16 05:38 Specimen Type JUANITA ART Sample Site Not entered R Radial pH 7.38 Bicarbonate Actual 17.5 L Total CO2 18 Base Excess -8 L O2 Saturation 96 O2 % 30.0 30.0 ABG pCO2 29.8 L ABG pO2 83 Fili Test Positive VBG pH 7.35 VBG pO2 44 H VBG HCO3 26 VBG Total CO2 27 VBG O2 Sat (Calc) 76 H VBG Base Excess 0 POC Mix VBG pCO2 Pt Tmp 46.6 Respiration Rate 12 O2 Delivery Device BiPAP BiPAP Vent Mode Not entered POC PEEP 10 Peak Inspir Pressure 18 Clinical Comments 18. 10. 30% Radiography Diagnostic Testing: Radiology Impression Chest X-Ray 04/03/25 00:30 IMPRESSION: Multifocal airspace opacities of the lungs are more prominent in the perihilar zones and the lower lobes, possibly multifocal congestion and/or pneumonia. Reading Location: [place] [address] Chest CTA 04/03/25 02:34 IMPRESSION: Mild bilateral pleural effusions. Passive atelectatic airspace disease/airspace consolidations of the lower lobes. Bilateral chronic perihilar interstitial pulmonary thickening with associated mild multifocal ground-glass densities, possibly superimposed pneumonia. Mild diffuse spondylosis. No CT evidence of pulmonary embolus or aortic dissection. Reading Location: [place] [address] Echocardiogram 04/03/25 05:55 Interpretation Summary Mid to distal anterior septal, inferior septal, inferior and posterior hypokinesis. Estimated LVEF 40%. Stage I diastolic dysfunction. The left atrium is mildly enlarged. Severe mitral annular calcification. Moderate (2+) posteriorly directed mitral valve insufficiency. Right ventricular systolic pressure estimated to be 41 mmHg. Aortic sclerosis, no stenosis. Ordering Physician: Dyana Hwang Performed By: Fiordaliza Edgar RDCS and Student Physical Exam Const alert and oriented x3 Constitutional Narrative: frail, on BIPAP General Appearance: cooperative HEENT normocephalic, moist oral mucous membranes, oropharynx normal and gingiva normal Eyes PERRL and EOMs intact bilaterally Neck no lymphadenopathy and supple Lymph Lymphatic: no lymphadenopathy noted and no lymphedema noted Resp Resp Narrative: moderately diminished breath sounds bilaterally, few crackles bilaterally. On BIPAP. Cardio regular rate, regular rhythm, S1 normal heart sound, S2 normal heart sound and no murmurs GI normal to inspection, nondistended, normoactive bowel sounds, soft to palpation and non-tender Extremity normal capillary refill, no clubbing, cyanosis or edema and no calf tenderness General Extremity: no tenderness to palpation of joints or extremities Skin General Skin Exam: no breakdown Neuro no focal motor deficits and no sensory deficits noted Motor Exam: general weakness Psych thought process normal and cooperative Appearance: appropriate Assessment & Plan Assessment/Plan (1) Acute hypoxic respiratory failure: PLAN: Plan #Acute hypoxic respiratory failure due to acute on chronic COPD examination and probable heart failure as well as superimposed pneumonia * on BIPAP. * sputum cultures pending * breathing treatment with bronchodilators. Titrate oxygen to maintain sats >90% * critical care on board. * 2D echo ordered showed EF of 40% with LV hypokinesis and stage I diastolic dysfunction and RVSP of 41mmHg. * #Elevated cardiac enzymes: initial troponin was 58, and only peaked at 76. #Type 2 diabetes mellitus: on lantus. ISS. Accuchecks ACHS #Hyperlipidemia: on ezetimibe #CKD III: Cr at baseline. 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 #Nicotine dependence: counseled to quit. Nicotine patch prn. DVT prophylaxis: currently on heparin drip. Total time spent on evaluation and management of patient, reviewing chart and specialist notes, discussing plan with patient, discussion with nursing and ancillary staff as well as documentation: 32 mins Charges/Coding Visit Charges Inpatient E&M: 53528 PROLNG IP/OBS E/M EA 15 MIN 04/03/25 170 <Electronically signed by Grace Arnold MD> Grace Arnold MD Cosigner Signature (if applicable): CC: ~ Signed ADDENDUM by Dr. Grace Arnold MD on 04/03/25 at 1708 Addendum Correction: Creatinine trended up from 1.67-2.67. Patient overnight has MADONNA on CKD. Bicarb is also down to 13.6 with anion gap of 21. Baseline creatinine is around 1.7. Hold metoprolol and evening dose of Lasix. If creatinine continuesto trend upwards we will consult nephrology. 04/03/25 170 <Electronically signed by Grace de leon MD> Date _ Grace Arnold MD Cosigner Signature (if applicable): Date cc: ~* Signed [facility] Work Phone: [phone]) 851-388106-03-2025 Consult note Author Breezy Campbell [facility] Note Date/Time April 03, 2025 4:52p m [facility] Medical Records Department [address] [place] [address] Consultation - Cardiology 04/03/25 1630 MR#: [id number] Acct: [id number] Name: ENOC ARMANDO Rep #:[id number] : 1945 79 From: Breezy Campbell MD PCP: Dr. Ryley Jeter MD Status:ADM IN Location: ICU ICU04-1 Assessment & Plan Assessment/Plan (1) Acute hypoxic respiratory failure: PLAN: Patient's acute hypoxic respiratory failure appears to be primarily pulmonary in etiology. However, the patient does have mild LV dysfunction in a segmental fashion with an ejection fraction estimated at 40%. He apparently underwent left heart catheterization a year ago in [place] we will try to obtain those records but from his report he had 2 occluded vessels which would match the segmental dysfunction noted on his echo. These vessels were not amenable to revascularization and he has been treated medically. The patient denies any anginal symptoms his symptoms that presented him to the emergency room was progressive dyspnea on exertion. (2) LV dysfunction: PLAN: The patient is EF is 40% in a segmental fashion. He should be reinstituted on his metoprolol lisinopril and furosemide as tolerated. I will try to obtain records from [place] to see if this is new but it appearsto come be consistent with the cath report that he described to me. (3) CKD (chronic kidney disease), stage III: QUALIFIERS: Chronic kidney disease stage 3 subtype: stage 3b (GFR 30-44) Qualified Code(s): N18.32 - Chronic kidney disease, stage 3b PLAN: Patient's GFR on admission was 35. Creatinine is 1.88. Further treatmentwill be per the primary service. The patient carries a history of stage III chronic kidney disease. (4) HTN (hypertension): QUALIFIERS: Hypertension type: primary hypertension Qualified Code(s): I10 - Essential (primary) hypertension PLAN: Blood pressure is still in the 130 systolic range. As the patient recovers from his pulmonary insufficiency it may be of benefit to switch him from metoprolol to Coreg for better afterload and beta-deepali therapy for his LV dysfunction. PLAN: Plan 1. Will try to obtain cardiovascular records from [place] from last year. 2. Continue current medical therapy. 3. Will follow along with you as the patient recovers from his pulmonary insufficiency we may need to alter his cardiovascular medical therapy. 4. The patient does not routinely see a baseball club manager by his report. We will behappy to follow him up in the office following discharge if he desires. HPI Consult Data Date of Consult: 04/03/25 HPI Narrative Reason for Consultation: Acute respiratory failure with LV dysfunction. HPI Narrative: ENOC ARMANDO, is a 79 M who presents with acute respiratory failure requiring ventilatory support with CPAP/BiPAP. Patient had noted increasing dyspnea on exertion and presented to the emergency department for evaluation and was found to be in acute hypoxic respiratory failure. The patient denied any weight gain he does carry history of diabetes hyperlipidemia hypertension coronary artery disease anemia and chronic kidney disease. His creatinine was 1.88 with a GFR of 35 on admission. Troponins were 58 and [address] was negativefor a PE but did suggest pulmonary infectious process. An echocardiogram performed which showed the 40% ejection fraction with segmental wall motion abnormality in the mid to distal anterior wall and inferior posterior fuentes. 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 The patient specifically denies any chest pain. He denies any lower extremity edema. The patient's complaint was really dyspnea on exertion. He is now beingtreated with IV antibiotics and ventilatory support. The patient is DNR [facility]. REPLACED BY [facility] Medical History (Updated 04/03/25 @ 16:[address] Breezy Campbell MD) Chronic anemia Tobacco use COPD (chronic obstructive pulmonary disease) HLD (hyperlipidemia) HTN (hypertension) BPH (benign prostatic hyperplasia) Chronic low back pain with sciatica Diabetes mellitus, type 2 CKD (chronic kidney disease), stage III Pneumonia COVID Wears glasses Wears dentures Home Medications ?Medication ?Instructions ?Recorded ?Last Taken ?Type amlodipine 10 mg tablet (Norvasc) 10 mg PO 1200 08/12/21 History aspirin 81 mg tablet,delayed 81 mg PO DAILY 08/05/21 U nknown History release insulin glargine 100 unit/mL (3 15 unit subcut QPM 03/21 Unknown History mL) subcutaneous pen (Lantus Solostar U-100 Insulin) insulin lispro 100 unit/mL 0 unit subcut TID SLIDING S JENNIFER 08/05/21 Unknown History subcutaneous pen tamsulosin 0.4 mg capsule (Flomax) 0.4 mg PO .COMPLEX urination 08/05/21 Unknown History ezetimibe 10 mg tablet 10 mg PO DAILY 04/06/24 Unkn own History lisinopril 5 mg tablet 5 mg PO DAILY 04/06/24 Unkno wn History metoprolol succinate 25 mg 25 mg PO DAILY 04/06/24 Unk nown History tablet,extended release 24 hr blood sugar diagnostic (Contour 09/12/24 Unknown Hist ory Next Test Strips) potassium chloride 20 mEq 20 meq PO BIDCM 30 days #60 tabs 09/14/24 Unknown Rx tablet,extended release(part/cryst) furosemide 40 mg tablet (Lasix) 40 mg PO DAILY 5 Unknown History hydralazine 50 mg tablet 50 mg PO Q8H 04/03/25 Unknow n History Allergy/AdvReac Type Severity Reaction Status Date / Time Corticosteroids AdvReac Other Verified 04/03/25 00:16 (Glucocorticoids) (steroids) [id number]-[id number] Reductase AdvReac Other Verified 04/03/25 00:16 Inhibitor (Strrfwt-Mkj-Djy Reductase Inhibitor) Family History Mother COPD (chronic obstructive pulmonary disease) Father CAD (coronary artery disease) Heart disease Surgical History Hx of cystoscopy Hx of colonoscopy Hx of left cataract extraction Hx of right cataract extraction Social History household members: spouse Smoking Status: Current every day smoker tobacco type: cigarettes alcohol intake: never substance use type: does not use ROS Review of Systems ROS Unobtainable: other Details: Difficult to discuss given BiPAP machine. Constitutional Constitutional: Reports as per HPI Eyes Eyes: Reports systems reviewed and no addt'l complaints, except as documented ENT HEENT: Reports systems reviewed and no addt'l complaints, except as documented Cardiovascular Cardiovascular: Reports as per HPI Respiratory/Chest Respiratory/Chest: Reports as per HPI Gastrointestinal Gastrointestinal: Reports systems reviewed and no addt'l complaints, except as documented Genitourinary Genitourinary: Reports systems reviewed and no addt'l complaints, except as documented Musculoskeletal Musculoskeletal: Reports systems reviewed and no addt'l complaints, except as documented Integumentary Integumentary: Reports systems reviewed and no addt'l complaints, except as documented Neurologic Neurologic: Reports systems reviewed and no addt'l complaints, except as documented Psychiatric Psychiatric: Reports systems reviewed and no addt'l complaints, except as documented Hematologic/Lymphatic Hematologic/Lymphatic: Reports systems reviewed and no addt'l complaints, exceptas documented Allergic/Immunologic Allergic/Immunologic: Reports systems reviewed and no addt'l complaints, except as documented Physical Exam Narrative Patient currently on ventilatory support with BiPAP. Const alert and oriented x3 HEENT normocephalic Eyes EOMs intact bilaterally Neck no JVD Carotids: Negative for bruit Resp normal respiratory effort Auscultation: rales diffuse Cardio Cardio Narrative: Difficult auscultate given respiratory noise. Rate: regular rate Rhythm: regular rhythm Heart Sounds: S1 normal and S2 normal; Negative for click, gallop or murmur GI soft to palpation Extremity no pedal edema Neuro Neuro Narrative: Alert and oriented x 3. Psych mental status grossly normal Risk Stratification Risk Stratification Applicable: Yes Age >/= 65: Yes >/= 3 CAD Risk Factors (HTN, HLD, DM, family hx of CAD, or current smoker): Yes Aspirin Use in the Past 7 Days: Yes Severe Angina (>/= episodes in 24 hours): No EKG ST Changes >/= 0.5mm: No Positive Cardiac Marker: Yes PRACHI Risk Stratification Score: 4 PRACHI % Risk: 20% Risk Charges/Coding Visit Charges Inpatient E&M: 79416 Init Hosp L3 Objective Data Vital Signs: Vital Signs Temp Pulse Resp BP Pulse Ox O2 Del Method O2 Flow Rate 98.4 F 91 19 H 134/57 H 98 Bi-pap 2 04/03/25 12:00 04/03/25 15:27 04/03/25 15:27 04/03/25 15:00 04/03/25 15:00 04/03/25 15:00 04/03/25 09:36 FiO2 30 04/03/25 15:00 Oxygen Flow Rate (L/min) 2 Oxygen Delivery Method Bi-pap Weight: 135 lb 9.349 oz Body Mass Index (BMI) 21.2 Intake & Output: Intake and Output for Last 24 Hours 04/01/25 04/02/25 04/03/25 23:59 23:59 23:59 Intake Total 384.95 / 384.95 Output Total 350 / 350 Balance 34.95 / 34.95 Lab / Micro Data Attestation: I reviewed the patient's lab results. 04/03/25 05:32 04/03/25 14:50 Labs: Laboratory Results - last 24 hr 04/03/25 00:05: WBC 15.7 H, RBC 3.41 L, Hgb 10.2 L, Hct 32.2 L, MCV 94.4 H, MCH 29.9, MCHC 31.7 L, RDW Std Deviation 45.3 H, RDW Coeff of Humaira 13.2, Plt Count 300, MPV 10.8, Immature Gran % (Auto) 0.600, Neut % (Auto) 76.4 H, Lymph % (Auto) 13.5 L, Ada % (Auto) 7.0, Eos % (Auto) 1.9, Baso % (Auto) 0.6, Absolute Neuts (auto) 12.0 H, Absolute Lymphs (auto) 2.12, Nucleated RBC % 0, PT 13.4, INR 1.0, APTT 37.3 H, D-Dimer Quant (PE/DVT) 1.86 H*, Sodium 139, Potassium 4.4,Chloride 104, Carbon Dioxide 20.8 L, Anion Gap 14, BUN 42 H, Creatinine 1.88 H, Estim Creat Clear Calc 28.20 L, Est GFR (MDRD) Non-Af 35 L, BUN/Creatinine Ratio22.3 H, Glucose 255 H, Calcium 8.8, Troponin T High Sens 58 H*, NT pro BNP II 6552 H 04/03/25 02:25: Lactic Acid 1.3 04/03/25 02:45: Magnesium 2.3 H, Troponin T Hi Sens 2 Hr 76 H* 04/03/25 04:20: Troponin T Hi Sens 4Hr 80 H* 04/03/25 05:32: WBC 13.0 H, RBC 3.09 L, Hgb 9.3 L, Hct 28.9 L, MCV 93.5, MCH 30.1, MCHC 32.2, RDW Std Deviation 45.9 H, RDW Coeff of Humaira 13.4, Plt Count 268,MPV 11.4, Immature Gran % (Auto) 0.500, Neut % (Auto) 94.8 H, Lymph % (Auto) 3.3L, Ada % (Auto) 1.1, Eos % (Auto) 0.0, Baso % (Auto) 0.3, Absolute Neuts (auto)12.4 H, Absolute Lymphs (auto) 0.43 L, Nucleated RBC % 0, Sodium 137, Potassium 4.5, Chloride 104, Carbon Dioxide 15.5 L, Anion Gap 18 H, BUN 44 H, Creatinine 1.77 H, Estim Creat Clear Calc 28.47 L, Est GFR (MDRD) Non-Af 38 L, BUN/Creatinine Ratio 24.6 H, Glucose 428 H, Calcium 7.9, Total Bilirubin 0.38, AST 24, ALT 16, Alkaline Phosphatase 80, Total Protein 6.0, Albumin 3.6, Globulin 2.4, Albumin/Globulin Ratio 1.5, Triglycerides 44, Cholesterol 137, LDLCholesterol, Calc 80, VLDL Cholesterol 9, HDL Cholesterol 48, Cholesterol/HDL Ratio 2.87, Procalcitonin 0.31 H, TSH 0.530 04/03/25 05:53: POC Glucose 435 H 04/03/25 11:37: POC Glucose > 500 H* 04/03/25 12:10: APTT 212.0 H* 04/03/25 12:50: POC Glucose > 500 H* 04/03/25 13:54: POC Glucose > 500 H* 04/03/25 14:50: Sodium 133, Potassium 4.4, Chloride 98, Carbon Dioxide 13.6 L, Anion Gap 21 H, BUN 58 H, Creatinine 2.67 H, Estim Creat Clear Calc 18.87 L, Est GFR (MDRD) Non-Af 23 L, BUN/Creatinine Ratio 21.7 H, Glucose 638 H*, Calcium 8.6 04/03/25 14:51: POC Glucose > 500 H* 04/03/25 16:04: POC Glucose 496 H* Micro: Microbiology 04/03/25 05:46 Wound - Elbow Skin and Soft Tissue MRSA/MSSA (PCR - Final 04/03/25 05:10 Mucosa - Nasopharyngeal Respiratory Panel (PCR) - Final 04/03/25 05:51 Urine, Clean Catch Legionella Antigen - Final 04/03/25 05:51 Urine Catheter - Catheter Streptococcus pneumoniae Antigen (M- Final 04/03/25 00:25 Mucosa - Nose SARS-CoV-2, Influenza & RSV (PCR) - Final ABG Data ABG results: ABG 04/03/25 04/03/25 00:16 05:38 Specimen Type JUANITA ART Sample Site Not entered R Radial pH 7.38 Bicarbonate Actual 17.5 L Total CO2 18 Base Excess -8 L O2 Saturation 96 O2 % 30.0 30.0 ABG pCO2 29.8 L ABG pO2 83 Fili Test Positive VBG pH 7.35 VBG pO2 44 H VBG HCO3 26 VBG Total CO2 27 VBG O2 Sat (Calc) 76 H VBG Base Excess 0 POC Mix VBG pCO2 Pt Tmp 46.6 Respiration Rate 12 O2 Delivery Device BiPAP BiPAP Vent Mode Not entered POC PEEP 10 Peak Inspir Pressure 18 Clinical Comments 18. 10. 30% Rhythm Strip Rhythm Strip: Sinus Rhythm Rate: 92 Cardiology Labs/Tests 04/03/25 00:05: WBC 15.7 H, RBC 3.41 L, Hgb 10.2 L, Hct 32.2 L, MCV 94.4 H, MCH 29.9, MCHC 31.7 L, Plt Count 300, MPV 10.8, Immature Gran % (Auto) 0.600, Neut %(Auto) 76.4 H, Lymph % (Auto) 13.5 L, Ada % (Auto) 7.0, Eos % (Auto) 1.9, Baso % (Auto) 0.6, Absolute Neuts (auto) 12.0 H, Nucleated RBC % 0, PT 13.4, INR 1.0,APTT 37.3 H, D-Dimer Quant (PE/DVT) 1.86 H*, Sodium 139, Potassium 4.4, [id number], Carbon Dioxide 20.8 L, Anion Gap 14, BUN 42 H, Creatinine 1.88 H, Est GFR (MDRD) Non-Af 35 L, BUN/Creatinine Ratio 22.3 H, Glucose 255 H, Calcium 8.8 04/03/25 00:16: VBG pH 7.35, VBG pO2 44 H, VBG HCO3 26, VBG O2 Sat (Calc) 76 H, VBG Base Excess 0 04/03/25 02:25: Lactic Acid 1.3 04/03/25 02:45: Magnesium 2.3 H 04/03/25 05:32: WBC 13.0 H, RBC 3.09 L, Hgb 9.3 L, Hct 28.9 L, MCV 93.5, MCH 30.1, MCHC 32.2, Plt Count 268, MPV 11.4, Immature Gran % (Auto) 0.500, Neut % (Auto) 94.8 H, Lymph % (Auto) 3.3 L, Ada % (Auto) 1.1, Eos % (Auto) 0.0, Baso %(Auto) 0.3, Absolute Neuts (auto) 12.4 H, Nucleated RBC % 0, Sodium 137, Potassium 4.5, Chloride 104, Carbon Dioxide 15.5 L, Anion Gap 18 H, BUN 44 H, Creatinine 1.77 H, Est GFR (MDRD) Non-Af 38 L, BUN/Creatinine Ratio 24.6 H, Glucose 428 H, Calcium 7.9, Total Bilirubin 0.38, Triglycerides 44, Cholesterol 137, VLDL Cholesterol 9, HDL Cholesterol 48, Cholesterol/HDL Ratio 2.87 04/03/25 05:38: pH 7.38, Bicarbonate Actual 17.5 L, Base Excess -8 L, O2 Saturation 96, ABG pCO2 29.8 L, ABG pO2 83, Fili Test Positive 04/03/25 12:10: APTT 212.0 H* 04/03/25 14:50: Sodium 133, Potassium 4.4, Chloride 98, Carbon Dioxide 13.6 L, Anion Gap 21 H, BUN 58 H, Creatinine 2.67 H, Est GFR (MDRD) Non-Af 23 L, BUN/Creatinine Ratio 21.7 H, Glucose 638 H*, Calcium 8.6 Rhythm: EKG: ECHO: Stress Test: Cardiac Cath: PCI: CT Surgery: Holter monitor: EPS: PPM: CXR: Chest CT Scan: Radiography Diagnostic Testing: Radiology Impression Chest X-Ray 04/03/25 00:30 IMPRESSION: Multifocal airspace opacities of the lungs are more prominent in the perihilar zones and the lower lobes, possibly multifocal congestion and/or pneumonia. Reading Location: [place] [address] Chest CTA 04/03/25 02:34 IMPRESSION: Mild bilateral pleural effusions. Passive atelectatic airspace disease/airspace consolidations of the lower lobes. Bilateral chronic perihilar interstitial pulmonary thickening with associated mild multifocal ground-glass densities, possibly superimposed pneumonia. Mild diffuse spondylosis. No CT evidence of pulmonary embolus or aortic dissection. Reading Location: [place] [address] Echocardiogram 04/03/25 05:55 Interpretation Summary Mid to distal anterior septal, inferior septal, inferior and posterior hypokinesis. Estimated LVEF 40%. Stage I diastolic dysfunction. The left atrium is mildly enlarged. Severe mitral annular calcification. Moderate (2+) posteriorly directed mitral valve insufficiency. Right ventricular systolic pressure estimated to be 41 mmHg. Aortic sclerosis, no stenosis. Ordering Physician: Dyana Hwang Performed By: Fiordaliza Edgar RDCS and Student 04/03/25 1652 <Electronically signed by Breezy Campebll MD> Cosigner Signature (if applicable): CC: Dr. Ryley Jeter MD~ Signed [facility] Work Phone: [phone] 616-126706-03-2025 Progress note [facility] Medical Records Department [address] [place] [address] Progress Note 04/03/25 1352 MR#: [id number] Acct: [id number] Name: NEOC ARMANDO Rep #:[id number] : 1945 79 From: Grace Arnold MD PCP: Dr. Ryley Jeter MD Status:ADM IN Location: ICU ICU04-1 Subjective Subjective Patient seen and examined. He was on BiPAP. He admitted to feeling short of breath. He denied any chest pain or palpitations, dizziness, nausea or vomitingor any other symptoms.. Systems otherwise negative. Blood sugars have been poorly controlled. Objective Data Objective Data Vital Signs: Vital Signs Temp Pulse Resp BP Pulse Ox O2 Del Method O2 Flow Rate 98.4 F 95 20 H 119/48 L 99 Bi-pap 2 04/03/25 12:00 04/03/25 12:54 04/03/25 12:00 04/03/25 12:54 04/03/25 12:00 04/03/25 12:00 04/03/25 09:36 FiO2 30 04/03/25 12:00 Oxygen Flow Rate (L/min) 2 Oxygen Delivery Method Bi-pap Weight: 135 lb 9.349 oz Body Mass Index (BMI) 21.2 Intake & Output: Intake and Output for Last 24 Hours 04/01/25 04/02/25 04/03/25 23:59 23:59 23:59 Intake Total 371 / 371 Output Total 350 / 350 Balance Lab / Micro Data 04/03/25 05:32 04/03/25 14:50 Labs: Laboratory Results - last 24 hr 04/03/25 00:05: WBC 15.7 H, RBC 3.41 L, Hgb 10.2 L, Hct 32.2 L, MCV 94.4 H, MCH 29.9, MCHC 31.7 L, RDW Std Deviation 45.3 H, RDW Coeff of Humaira 13.2, Plt Count 300, MPV 10.8, Immature Gran % (Auto) 0.600, Neut % (Auto) 76.4 H, Lymph % (Auto) 13.5 L, Ada % (Auto) 7.0, Eos % (Auto) 1.9, Baso % (Auto) 0.6, Absolute Neuts (auto) 12.0 H, Absolute Lymphs (auto) 2.12, Nucleated RBC % 0, PT 13.4, INR 1.0,APTT 37.3 H, D-Dimer Quant (PE/DVT) 1.86 H*, Sodium 139, Potassium 4.4,Chloride 104, Carbon Kehwvnf17.8 L, Anion Gap 14, BUN 42 H, Creatinine 1.88 H, Estim Creat Clear Calc 28.20 L, Est GFR (MDRD) Non-Af 35 L, BUN/Creatinine Ratio22.3 H, Glucose 255 H, Calcium 8.8, Troponin T High Sens 58 H*, NT pro BNP II 6552 H 04/03/25 02:25: Lactic Acid 1.3 04/03/25 02:45: Magnesium 2.3 H, Troponin T Hi Sens 2 Hr 76 H* 04/03/25 04:20: Troponin T Hi Sens 4Hr 80 H* 04/03/25 05:32: WBC 13.0 H, RBC 3.09 L, Hgb 9.3 L, Hct 28.9 L, MCV 93.5, MCH 30.1, MCHC 32.2, RDW Std Deviation 45.9 H, RDW Coeff of Humaira 13.4, Plt Count 268,MPV 11.4, Immature Gran % (Auto) 0.500, Neut % (Auto) 94.8 H, Lymph % (Auto) 3.3L, Ada % (Auto) 1.1, Eos % (Auto) 0.0, Baso % (Auto) 0.3, Absolute Neuts (auto)12.4 H, Absolute Lymphs (auto) 0.43 L, Nucleated RBC % 0, Sodium 137, Potassium 4.5, Chloride 104, Carbon Dioxide 15.5 L, Anion Gap 18 H, BUN 44 H, Creatinine 1.77 H, Estim Creat Clear Calc 28.47 L, Est GFR (MDRD) Non-Af 38 L, BUN/Creatinine Ratio 24.6 H, Glucose 428 H, Calcium 7.9, Total Bilirubin 0.38, AST 24, ALT 16, Alkaline Phosphatase 80, Total Protein 6.0, Albumin 3.6, Glob ulin 2.4, Albumin/Globulin Ratio 1.5, Triglycerides 44, Cholesterol 137, LDLCholesterol, Calc 80, VLDL Cholesterol 9, HDL Cholesterol 48, Cholesterol/HDL Ratio 2.87, Procalcitonin 0.31 H, TSH 0.530 04/03/25 05:53: POC Glucose 435 H 04/03/25 11:37: POC Glucose > 500 H* 04/03/25 12:10: APTT 212.0 H* 04/03/25 12:50: POC Glucose > 500 H* Micro: Microbiology 04/03/25 05:46 Wound - Elbow Skin and Soft Tissue MRSA/MSSA (PCR - Final 04/03/25 05:10 Mucosa - Nasopharyngeal Respiratory Panel (PCR) - Final 04/03/25 05:51 Urine, Clean Catch Legionella Antigen - Final 04/03/25 05:51 Urine Catheter - Catheter Streptococcus pneumoniae Antigen (M- Final 04/03/25 00:25 Mucosa - Nose SARS-CoV-2, Influenza & RSV (PCR) - Final ABG Data ABG results: ABG 04/03/25 04/03/25 00:16 05:38 Specimen Type JUANITA ART Sample Site Not entered R Radial pH 7.38 Bicarbonate Actual 17.5 L Total CO2 18 Base Excess -8 L O2 Saturation 96 O2 % 30.0 30.0 ABG pCO2 29.8 L ABG pO2 83 Fili Test Positive VBG pH 7.35 VBG pO2 44 H VBG HCO3 26 VBG Total CO2 27 VBG O2 Sat (Calc) 76 H VBG Base Excess 0 POC Mix VBG pCO2 Pt Tmp 46.6 Respiration Rate 12 O2 Delivery Device BiPAP BiPAP Vent Mode Not entered POC PEEP 10 Peak Inspir Pressure 18 Clinical Comments 18. 10. 30% Radiography Diagnostic Testing: Radiology Impression Chest X-Ray 04/03/25 00:30 IMPRESSION: Multifocal airspace opacities of the lungs are more prominent in the perihilar zones and the lower lobes, possibly multifocal congestion and/or pneumonia. [facility] 04/03/25 02:34 IMPRESSION: Mild bilateral pleural effusions. Passive atelectatic airspace disease/airspace consolidations of the lower lobes. Bilateral chronic perihilar interstitial pulmonary thickening with associated mild multifocal ground-glass densities, possibly superimposed pneumonia. Mild diffuse spondylosis. No CT evidence of pulmonary embolus or aortic dissection. Reading Location: [facility] Echocardiogram 04/03/25 05:55 Interpretation Summary Mid to distal anterior septal, inferior septal, inferior and posterior hypokinesis. Estimated LVEF 40%. Stage I diastolic dysfunction. The left atrium is mildly enlarged. Severe mitral annular calcification. Moderate (2+) posteriorly directed mitral valve insufficiency. Right ventricular systolic pressure estimated to be 41 mmHg. Aortic sclerosis, no stenosis. Ordering Physician: Dyana Hwang Performed By: Fiordaliza Edgar RDCS and Student Physical Exam Const alert and oriented x3 Constitutional Narrative: frail, on BIPAP General Appearance: cooperative HEENT normocephalic, moist oral mucous membranes, oropharynx normal and gingiva normal Eyes PERRL and EOMs intact bilaterally Neck no lymphadenopathy and supple Lymph Lymphatic: no lymphadenopathy noted and no lymphedema noted Resp Resp Narrative: moderately diminished breath sounds bilaterally, few crackles bilaterally. On BIPAP. Cardio regular rate, regular rhythm, S1 normal heart sound, S2 normal heart sound and no murmurs GI normal to inspection, nondistended, normoactive bowel sounds, soft to palpation and non-tender Extremity normal capillary refill, no clubbing, cyanosis or edema and no calf tenderness General Extremity: no tenderness to palpation of joints or extremities Skin General Skin Exam: no breakdown Neuro no focal motor deficits and no sensory deficits noted Motor Exam: general weakness Psych thought process normal and cooperative Appearance: appropriate Assessment & Plan Assessment/Plan (1) Acute hypoxic respiratory failure: PLAN: Plan #Acute hypoxic respiratory failure due to acute on chronic COPD examination and probable heart failure as well as superimposed pneumonia * on BIPAP. * sputum cultures pending * breathing treatment with bronchodilators. Titrate oxygen to maintain sats >90% * critical care on board. * 2D echo ordered showed EF of 40% with LV hypokinesis and stage I diastolic dysfunction and RVSP of 41mmHg. * #Elevated cardiac enzymes: initial troponin was 58, and only peaked at 76. #Type 2 diabetes mellitus: on lantus. ISS. Accuchecks ACHS #Hyperlipidemia: on ezetimibe #CKD III: Cr at baseline. 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 #Nicotine dependence: counseled to quit. Nicotine patch prn. DVT prophylaxis: currently on heparin drip. Total time spent on evaluation and management of patient, reviewing chart and specialist notes, discussing plan with patient, discussion with nursing and ancillary staff as well as documentation: 32 mins Charges/Coding Visit Charges Inpatient E&M: 15848 PROLNG IP/OBS E/M EA 15 MIN 04/03/25 1705 Grace Arnold MD Cosigner Signature (if applicable): CC: ~ Signed ADDENDUM by Dr. Grace Arnold MD on 04/03/25 at 1708 Addendum Correction: Creatinine trended up from 1.67-2.67. Patient overnight has MADONNA on CKD. Bicarb is also down to 13.6 with anion gap of 21. Baseline creatinine is around 1.7. Hold metoprolol and evening dose of Lasix. If creatinine continuesto trend upwards we will consult nephrology. 04/03/25 1708 m MD> Date _ Grace Arnold MD Cosigner Signature (if applicable): Date cc: ~* Signed [facility]06-03-2025 Consult note [facility] Medical Records Department [address] [place] [place] [address] Consultation - Cardiology 04/03/25 1630 MR#: [id number] Acct: [id number] Name: ENOC ARMANDO Rep #:[id number] : 1945 79 From: Breezy Campbell MD PCP: Dr. Ryley Jeter MD Status:ADM IN Location: ICU ICU04-1 Assessment & Plan Assessment/Plan (1) Acute hypoxic respiratory failure: PLAN: Patient's acute hypoxic respiratory failure appears to be primarily pulmonary in etiology. However, the patient does have mild LV dysfunction in a segmental fashion with an ejection fraction estimated at 40%. He apparently underwent left heart catheterization a year ago in [place] we will try to obtain those records but from his report he had 2 occluded vessels which would match the segmental dysfunction noted on his echo. These vessels were not amenable to revascularization and he has been treated medically. The patient denies any anginal symptoms his symptoms that presented him to the emergency room was progressive dyspnea on exertion. (2) LV dysfunction: PLAN: The patient is EF is 40% in a segmental fashion. He should be reinstituted on his metoprolol lisinopril and furosemide as tolerated. I will try to obtain records from [place] to see if this is new but it appearsto come be consistent with the cath report that he described to me. (3) CKD (chronic kidney disease), stage III: QUALIFIERS: Chronic kidney disease stage 3 subtype: stage 3b (GFR 30-44) Qualified Code(s): N18.32 - Chronic kidney disease, stage 3b PLAN: Patient's GFR on admission was 35. Creatinine is 1.88. Further treatmentwill be per the primary service. The patient carries a history of stage III chronic kidney disease. (4) HTN (hypertension): QUALIFIERS: Hypertension type: primary hypertension Qualified Code(s): I10 - Essential (primary) hypertension PLAN: Blood pressure is still in the 130 systolic range. As the patient recovers from his pulmonaryinsufficiency it may be of benefit to switch him from metoprolol to Coreg for better afterload and beta-deepali therapy for his LV dysfunction. PLAN: Plan 1. Will try to obtain cardiovascular records from [place] from last year. 2. Continue current medical therapy. 3. Will follow along with you as the patient recovers from his pulmonary insufficiency we may need to alter his cardiovascular medical therapy. 4. The patient does not routinely see a baseball club manager by his report. We will behappy to follow him up in the office following discharge if he desires. HPI Consult Data Date of Consult: 04/03/25 HPI Narrative Reason for Consultation: Acute respiratory failure with LV dysfunction. HPI Narrative: ENOC ARMANDO, is a 79 M who presents with acute respiratory failure requiring ventilatory support with CPAP/BiPAP. Patient had noted increasing dyspnea on exertion and presented to the emergency department for evaluation and was found to be in acute hypoxic respiratory failure. The patient denied any weight gain he does carry history of diabetes hyperlipidemia hypertension coronary artery diseaseanemia and chronic kidney disease. His creatinine was 1.88 with a GFR of 35 on admission. Troponinswere 58 and [address] was negativefor a PE but did suggest pulmonary infectious process. An echocardiogram performed which showed the 40% ejection fraction with segmental wall motion abnormality in the mid to distal anterior wall and inferior posterior fuentes. 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 The patient specifically denies any chest pain. He denies any lower extremity edema. The patient's complaint was really dyspnea on exertion. He is now beingtreated with IV antibiotics and ventilatorysupport. The patient is DNR CCA. REPLACED BY [facility] Medical History (Updated 04/03/25 @ 16:[address] Breezy Campbell MD) Chronic anemia Tobacco use COPD (chronic obstructive pulmonary disease) HLD (hyperlipidemia) HTN (hypertension) BPH (benign prostatic hyperplasia) Chronic low back pain with sciatica Diabetes mellitus, type 2 CKD (chronic kidney disease), stage III Pneumonia COVID Wears glasses Wears dentures Home Medications ?Medication ?Instructions ?Recorded ?Last Taken ?Type amlodipine 10 mg tablet (Norvasc) 10 mg PO 1200 08/12/21 History aspirin 81 mg tablet,delayed 81 mg PO DAILY 08/05/21 U nknown History release insulin glargine 100 unit/mL (3 15 unit subcut QPM 03/21 Unknown History mL) subcutaneous pen (Lantus Solostar U-100 Insulin) insulin lispro 100 unit/mL 0 unit subcut TID SLIDING S JENNIFER 08/05/21 Unknown History subcutaneous pen tamsulosin 0.4 mg capsule (Flomax) 0.4 mg PO .COMPLEX urination 08/05/21 Unknown History ezetimibe 10 mg tablet 10 mg PO DAILY 04/06/24 Unkn own History lisinopril 5 mg tablet 5 mg PO DAILY 04/06/24 Unkno wn History metoprolol succinate 25 mg 25 mg PO DAILY 04/06/24 Unk nown History tablet,extended release 24 hr blood sugar diagnostic (Contour 09/12/24 Unknown Hist ory Next Test Strips) potassium chloride 20 mEq 20 meq PO BIDCM 30 days #60 tabs 09/14/24 Unknown Rx tablet,extended release(part/cryst) furosemide 40 mg tablet (Lasix) 40 mg PO DAILY 5 Unknown History hydralazine 50 mg tablet 50 mg PO Q8H 04/03/25 Unknow n History Allergy/AdvReac Type Severity Reaction Status Date / Time Corticosteroids AdvReac Other Verified 04/03/25 00:16 (Glucocorticoids) (steroids) Hwkqatc-VVN-IrF Reductase AdvReac Other Verified 04/03/25 00:16 Inhibitor (Vfvvrvi-Lme-Vgw Reductase Inhibitor) Family History Mother COPD (chronic obstructive pulmonary disease) Father CAD (coronary artery disease) Heart disease Surgical History Hx of cystoscopy Hx of colonoscopy Hx of left cataract extraction Hx of right cataract extraction Social History household members: spouse Smoking Status: Current every day smoker tobacco type: cigarettes alcohol intake: never substance use type: does not use ROS Review of Systems ROS Unobtainable: other Details: Difficult to discuss given BiPAP machine. Constitutional Constitutional: Reports as per HPI Eyes Eyes: Reports systems reviewed and no addt'l complaints, except as documented ENT HEENT: Reports systems reviewed and no addt'l complaints, except as documented Cardiovascular Cardiovascular: Reports as per HPI Respiratory/Chest Respiratory/Chest: Reports as per HPI Gastrointestinal Gastrointestinal: Reports systems reviewed and no addt'l complaints, except as documented Genitourinary Genitourinary: Reports systems reviewed and no addt'l complaints, except as documented Musculoskeletal Musculoskeletal: Reports systems reviewed and no addt'l complaints, except as documented Integumentary Integumentary: Reports systems reviewed and no addt'l complaints, except as documented Neurologic Neurologic: Reports systems reviewed and no addt'l complaints, except as documented Psychiatric Psychiatric: Reports systems reviewed and no addt'l complaints, except as documented Hematologic/Lymphatic Hematologic/Lymphatic: Reports systems reviewed and no addt'l complaints, exceptas documented Allergic/Immunologic Allergic/Immunologic: Reports systems reviewed and no addt'l complaints, except as documented Physical Exam Narrative Patient currently on ventilatory support with BiPAP. Const alert and oriented x3 HEENT normocephalic Eyes EOMs intact bilaterally Neck no JVD Carotids: Negative for bruit Resp normal respiratory effort Auscultation: rales diffuse Cardio Cardio Narrative: Difficult auscultate given respiratory noise. Rate: regular rate Rhythm: regular rhythm Heart Sounds: S1 normal and S2 normal; Negative for click, gallop or murmur GI soft to palpation Extremity no pedal edema Neuro Neuro Narrative: Alert and oriented x 3. Psych mental status grossly normal Risk Stratification Risk Stratification Applicable: Yes Age >/= 65: Yes >/= 3 CAD Risk Factors (HTN, HLD, DM, family hx of CAD, or current smoker): Yes Aspirin Use in the Past 7 Days: Yes Severe Angina (>/= episodes in 24 hours): No EKG ST Changes >/= 0.5mm: No Positive Cardiac Marker: Yes PRACHI Risk Stratification Score: 4 PRACHI % Risk: 20% Risk Charges/Coding Visit Charges Inpatient E&M: 96607 Init Hosp L3 Objective Data Vital Signs: Vital Signs Temp Pulse Resp BP Pulse Ox O2 Del Method O2 Flow Rate 98.4 F 91 19 H 134/57 H 98 Bi-pap 2 04/03/25 12:00 04/03/25 15:27 04/03/25 15:27 04/03/25 15:00 04/03/25 15:00 04/03/25 15:00 04/03/25 09:36 FiO2 30 04/03/25 15:00 Oxygen Flow Rate (L/min) 2 Oxygen Delivery Method Bi-pap Weight: 135 lb 9.349 oz Body Mass Index (BMI) 21.2 Intake & Output: Intake and Output for Last 24 Hours 04/01/25 04/02/25 04/03/25 23:59 23:59 23:59 Intake Total 384.95 / 384.95 Output Total 350 / 350 Balance 34.95 / 34.95 Lab / Micro Data Attestation: I reviewed the patient's lab results. 04/03/25 05:32 04/03/25 14:50 Labs: Laboratory Results - last 24 hr 04/03/25 00:05: WBC 15.7 H, RBC 3.41 L, Hgb 10.2 L, Hct 32.2 L, MCV 94.4 H, MCH 29.9, MCHC 31.7 L, RDW Std Deviation 45.3 H, RDW Coeff of Humaira 13.2, Plt Count 300, MPV 10.8, Immature Gran % (Auto) 0.600, Neut % (Auto) 76.4 H, Lymph % (Auto) 13.5 L, Ada % (Auto) 7.0, Eos % (Auto) 1.9, Baso % (Auto) 0.6, Absolute Neuts (auto) 12.0 H, Absolute Lymphs (auto) 2.12, Nucleated RBC % 0, PT 13.4, INR 1.0,APTT 37.3 H, D-Dimer Quant (PE/DVT) 1.86 H*, Sodium 139, Potassium 4.4,Chloride 104, Carbon Wfsaulj16.8 L, Anion Gap 14, BUN 42 H, Creatinine 1.88 H, Estim Creat Clear Calc 28.20 L, Est GFR (MDRD) Non-Af 35 L, BUN/Creatinine Ratio22.3 H, Glucose 255 H, Calcium 8.8, Troponin T High Sens 58 H*, NT pro BNP II 6552 H 04/03/25 02:25: Lactic Acid 1.3 04/03/25 02:45: Magnesium 2.3 H, Troponin T Hi Sens 2 Hr 76 H* 04/03/25 04:20: Troponin T Hi Sens 4Hr 80 H* 04/03/25 05:32: WBC 13.0 H, RBC 3.09 L, Hgb 9.3 L, Hct 28.9 L, MCV 93.5, MCH 30.1, MCHC 32.2, RDW Std Deviation 45.9 H, RDW Coeff of Humaira 13.4, Plt Count 268,MPV 11.4, Immature Gran % (Auto) 0.500, Neut % (Auto) 94.8 H, Lymph % (Auto) 3.3L, Ada % (Auto) 1.1, Eos % (Auto) 0.0, Baso % (Auto) 0.3, Absolute Neuts (auto)12.4 H, Absolute Lymphs (auto) 0.43 L, Nucleated RBC % 0, Sodium 137, Potassium 4.5, Chloride 104, Carbon Dioxide 15.5 L, Anion Gap 18 H, BUN 44 H, Creatinine 1.77 H, Estim Creat Clear Calc 28.47 L, Est GFR (MDRD) Non-Af 38 L, BUN/Creatinine Ratio 24.6 H, Glucose 428 H, Calcium 7.9, Total Bilirubin 0.38, AST 24, ALT 16, Alkaline Phosphatase 80, Total Protein 6.0, Albumin 3.6, Glob ulin 2.4, Albumin/Globulin Ratio 1.5, Triglycerides 44, Cholesterol 137, LDLCholesterol, Calc 80, VLDL Cholesterol 9, HDL Cholesterol 48, Cholesterol/HDL Ratio 2.87, Procalcitonin 0.31 H, TSH 0.530 04/03/25 05:53: POC Glucose 435 H 04/03/25 11:37: POC Glucose > 500 H* 04/03/25 12:10: APTT 212.0 H* 04/03/25 12:50: POC Glucose > 500 H* 04/03/25 13:54: POC Glucose > 500 H* 04/03/25 14:50: Sodium 133, Potassium 4.4, Chloride 98, Carbon Dioxide 13.6 L, Anion Gap 21 H, BUN 58 H, Creatinine 2.67 H, Estim Creat Clear Calc 18.87 L, Est GFR (MDRD) Non-Af 23 L, BUN/Creatinine Ratio 21.7 H, Glucose 638 H*, Calcium 8.6 04/03/25 14:51: POC Glucose > 500 H* 04/03/25 16:04: POC Glucose 496 H* Micro: Microbiology 04/03/25 05:46 Wound - Elbow Skin and Soft Tissue MRSA/MSSA (PCR - Final 04/03/25 05:10 Mucosa - Nasopharyngeal Respiratory Panel (PCR) - Final 04/03/25 05:51 Urine, Clean Catch Legionella Antigen - Final 04/03/25 05:51 Urine Catheter - Catheter Streptococcus pneumoniae Antigen (M- Final 04/03/25 00:25 Mucosa - Nose SARS-CoV-2, Influenza & RSV (PCR) - Final ABG Data ABG results: ABG 04/03/25 04/03/25 00:16 05:38 Specimen Type JUANITA ART Sample Site Not entered R Radial pH 7.38 Bicarbonate Actual 17.5 L Total CO2 18 Base Excess -8 L O2 Saturation 96 O2 % 30.0 30.0 ABG pCO2 29.8 L ABG pO2 83 Fili Test Positive VBG pH 7.35 VBG pO2 44 H VBG HCO3 26 VBG Total CO2 27 VBG O2 Sat (Calc) 76 H VBG Base Excess 0 POC Mix VBG pCO2 Pt Tmp 46.6 Respiration Rate 12 O2 Delivery Device BiPAP BiPAP Vent Mode Not entered POC PEEP 10 Peak Inspir Pressure 18 Clinical Comments 18. 10. 30% Rhythm Strip Rhythm Strip: Sinus Rhythm Rate: 92 Cardiology Labs/Tests 04/03/25 00:05: WBC 15.7 H, RBC 3.41 L, Hgb 10.2 L, Hct 32.2 L, MCV 94.4 H, MCH 29.9, MCHC 31.7 L, Plt Count 300, MPV 10.8, Immature Gran % (Auto) 0.600, Neut %(Auto) 76.4 H, Lymph % (Auto) 13.5 L, Ada % (Auto) 7.0, Eos % (Auto) 1.9, Baso % (Auto) 0.6, Absolute Neuts (auto) 12.0 H, Nucleated RBC %0, PT 13.4, INR 1.0,APTT 37.3 H, D-Dimer Quant (PE/DVT) 1.86 H*, Sodium 139, Potassium 4.4, [id number], Carbon Dioxide 20.8 L, Anion Gap 14, BUN 42 H, Creatinine 1.88 H, Est GFR (MDRD) Non-Af 35 L, BUN/Creatinine Ratio 22.3 H, Glucose 255 H, Calcium 8.8 04/03/25 00:16: VBG pH 7.35, VBG pO2 44 H, VBG HCO3 26, VBG O2 Sat (Calc) 76 H, VBG Base Excess 0 04/03/25 02:25: Lactic Acid 1.3 04/03/25 02:45: Magnesium 2.3 H 04/03/25 05:32: WBC 13.0 H, RBC 3.09 L, Hgb 9.3 L, Hct 28.9 L, MCV 93.5, MCH 30.1, MCHC 32.2, Plt Count 268, MPV 11.4, Immature Gran % (Auto) 0.500, Neut % (Auto) 94.8 H, Lymph % (Auto) 3.3 L, Ada %(Auto) 1.1, Eos % (Auto) 0.0, Baso %(Auto) 0.3, Absolute Neuts (auto) 12.4 H, Nucleated RBC % 0, Sodium 137, Potassium 4.5, Chloride 104, Carbon Dioxide 15.5 L, Anion Gap 18 H, BUN 44 H, Creatinine 1.77 H, Est GFR (MDRD) Non-Af 38 L, BUN/Creatinine Ratio 24.6 H, Glucose 428 H, Calcium 7.9, Total Bilirubin 0.38, Triglycerides 44, Cholesterol 137, VLDL Cholesterol 9, HDL Cholesterol 48, Cholesterol/HDL Ratio 2.87 04/03/25 05:38: pH 7.38, Bicarbonate Actual 17.5 L, Base Excess -8 L, O2 Saturation 96, ABG pCO2 29.8 L, ABG pO2 83, Fili Test Positive 04/03/25 12:10: APTT 212.0 H* 04/03/25 14:50: Sodium 133, Potassium 4.4, Chloride 98, Carbon Dioxide 13.6 L, Anion Gap 21 H, BUN 58 H, Creatinine 2.67 H, Est GFR (MDRD) Non-Af 23 L, BUN/Creatinine Ratio 21.7 H, Glucose 638 H*, Calcium 8.6 Rhythm: EKG: ECHO: Stress Test: Cardiac Cath: PCI: CT Surgery: Holter monitor: EPS: PPM: CXR: Chest CT Scan: Radiography Diagnostic Testing: Radiology Impression Chest X-Ray 04/03/25 00:30 IMPRESSION: Multifocal airspace opacities of the lungs are more prominent in the perihilar zones and the lower lobes, possibly multifocal congestion and/or pneumonia. Reading Location: [place] [address] Chest CTA 04/03/25 02:34 IMPRESSION: Mild bilateral pleural effusions. Passive atelectatic airspace disease/airspace consolidations of the lower lobes. Bilateral chronic perihilar interstitial pulmonary thickening with associated mild multifocal ground-glass densities, possibly superimposed pneumonia. Mild diffuse spondylosis. No CT evidence of pulmonary embolus or aortic dissection. Reading [facility] Echocardiogram 04/03/25 05:55 Interpretation Summary Mid to distal anterior septal, inferior septal, inferior and posterior hypokinesis. Estimated LVEF 40%. Stage I diastolic dysfunction. The left atrium is mildly enlarged. Severe mitral annular calcification. Moderate (2+) posteriorly directed mitral valve insufficiency. Right ventricular systolic pressure estimated to be 41 mmHg. Aortic sclerosis, no stenosis. Ordering Physician: Dyana Hwang Performed By: Fiordaliza Edgar RDCS and Student 04/03/25 1652 Cosigner Signature (if applicable): CC: Dr. Ryley Jeter MD~ Signed [facility]06-03-2025 Consult note Author Landry Fagan [facility] Note Date/Time April 03, 2025 9:04a m [facility] Medical Records Department [address] [place] [address] Consultation - Foil Stamp Operator 04/03/25 0850 MR#: [id number] Acct: [id number] Name: ENOC ARMANDO Rep #:[id number] : 1945 79 From: Landry Fagan DO PCP: Dr. Ryley Jeter MD Status:ADM IN Location: ICU ICU04-1 Assessment & Plan Assessment/Plan (1) Acute hypoxic respiratory failure: PLAN: Plan RECOMMENDATIONS: 1. Continue supplemental oxygen to maintain saturations at or above 90%. 2. Empiric BiPAP therapy with naps and nightly. 3. Continue empiric antimicrobials, bronchodilators and steroids. 4. Await results of echocardiogram. 5. Gentle diuresis as tolerated by hemodynamics and renal function. 6. The patient will undoubtedly need to follow-up in the pulmonary medicine clinic so that baseline PFTs can be obtained. 7. Smoking cessation is advisable. IMPRESSIONS: 1. Acute hypoxemic respiratory failure Clinical concern for multifactorial etiology with possible COPD exacerbation along with possible CHF contributing. The patient has an extensive tobacco abuse history, but has never been formally diagnosed with COPD. He does have evidence of bilateral pleural effusions along with questionable airspace disease, concerning for pneumonia. Accordingly, the patient will be continued on scheduled bronchodilators, antimicrobials and IV steroids. In addition, scheduled diuretics will be continued, as tolerated by hemodynamics and renal function. In the interim, surface echocardiogram is pending. The patient appears improved clinically with the aforementioned interventions with minimal supplemental oxygen requirement. Ideally, the patient will need outpatient follow-up in the pulmonary medicine office after discharge so that baseline PFTscan be obtained. 2. Chronic tobacco dependency Tobacco cessation is strongly advised. Recommend outpatient pulmonary follow- upand PFTs. 3. Elevated troponin likely secondary to demand ischemia in the setting of #1 Continue current supportive care while awaiting results of echocardiogram. 4. History of diabetes mellitus/hypertension/hyperlipidemia/chronic kidney disease/BPH Complicates care, management, recovery and prognosis. Continue home medicationsas indicated. CODE STATUS: DNR CCA without intubation This note was generated with MyFeelBack dictation software. It may contain incorrectwords, spelling, and punctuation that were not noted in checking the note beforesigning. HPI Consult Data Date of Consult: 04/03/25 HPI Narrative Reason for Consultation: Respiratory failure HPI Narrative: The patient is an 79-year-old male, with a history as outlined below, who presented to the emergency department via EMS on the morning of April 03 with complaints of worsening dyspnea. The patient has an extensive tobacco abuse history and continues to smoke 0.5 packs of cigarettes per day. He does utilizesupplemental oxygen on a nocturnal basis at 4 to 5 L/min. The patient reported that he has never been evaluated by a arc air operator or completed pulmonary function studies. Therefore, it is unknown if the patient has underlying obstructive lung disease. He does not utilize any inhalers at his baseline. On presentation to the emergency department, the patient was documented to be afebrile but was notably hypertensive with a blood pressure of 206/80 mmHg. Laboratory evaluation was notable for a white blood cell count of 15,000. ABG was notable for a pH of 7.38 with a PCO2 of 29 and PO2 of 83. Chemistry profilewas notable for a creatinine of 1.8. Lactate was normal at 1.3. Troponin was mildly elevated at 76. CTA chest demonstrated bilateral pleural effusions with likely associated atelectasis or mild airspace disease in the bases. Strep and urine Legionella antigens were negative. Respiratory viral panel was negative. COVID, influenza and RSV PCR's were negative. The patient was subsequently placed on scheduled diuretics, antimicrobials, bronchodilators and steroids. Inlight of his increased work of breathing, the patient was placed on BiPAP therapy. He was admitted to the medical intensive care unit for further management. This morning, the patient has been weaned from BiPAP to nasal cannula oxygen at 2 L/min. He does report interval improvement in his breathing quality. An echocardiogram has been ordered and is currently pending. The patient's CODE STATUS was once again confirmed this morning to be a DNR CCA without intubation. REPLACED BY [facility] Medical History Chronic anemia Tobacco use COPD (chronic obstructive pulmonary disease) HLD (hyperlipidemia) HTN (hypertension) BPH (benign prostatic hyperplasia) Chronic low back pain with sciatica Diabetes mellitus, type 2 CKD (chronic kidney disease), stage III Pneumonia COVID Wears glasses Wears dentures Home Medications ?Medication ?Instructions ?Recorded ?Last Taken ?Type amlodipine 10 mg tablet (Norvasc) 10 mg PO 1200 08/12/21 History aspirin 81 mg tablet,delayed 81 mg PO DAILY 08/05/21 U nknown History release insulin glargine 100 unit/mL (3 15 unit subcut QPM 03/21 Unknown History mL) subcutaneous pen (Lantus Solostar U-100 Insulin) insulin lispro 100 unit/mL 0 unit subcut TID SLIDING S JENNIFER 08/05/21 Unknown History subcutaneous pen tamsulosin 0.4 mg capsule (Flomax) 0.4 mg PO .COMPLEX urination 08/05/21 Unknown History ezetimibe 10 mg tablet 10 mg PO DAILY 04/06/24 Unkn own History lisinopril 5 mg tablet 5 mg PO DAILY 04/06/24 Unkno wn History metoprolol succinate 25 mg 25 mg PO DAILY 04/06/24 Unk nown History tablet,extended release 24 hr blood sugar diagnostic (Contour 09/12/24 Unknown Hist ory Next Test Strips) potassium chloride 20 mEq 20 meq PO BIDCM 30 days #60 tabs 09/14/24 Unknown Rx tablet,extended release(part/cryst) furosemide 40 mg tablet (Lasix) 40 mg PO DAILY 5 Unknown History hydralazine 50 mg tablet 50 mg PO Q8H 04/03/25 Unknow n History Allergy/AdvReac Type Severity Reaction Status Date / Time Corticosteroids AdvReac Other Verified 04/03/25 00:16 (Glucocorticoids) (steroids) Qikxbzo-ZFP-GtN Reductase AdvReac Other Verified 04/03/25 00:16 Inhibitor (Depfnbu-Ycv-Alv Reductase Inhibitor) Family History Mother COPD (chronic obstructive pulmonary disease) Father CAD (coronary artery disease) Heart disease Surgical History Hx of cystoscopy Hx of colonoscopy Hx of left cataract extraction Hx of right cataract extraction Social History household members: spouse Smoking Status: Current every day smoker tobacco type: cigarettes alcohol intake: never substance use type: does not use ROS ROS Narrative 10 systems were reviewed with pertinent positives as noted in the HPI above. Physical Exam Const alert, oriented x3 and no apparent distress HEENT normocephalic, head/scalp atraumatic and moist oral mucous membranes Eyes PERRL, EOMs intact bilaterally and conjunctivae normal Neck supple General: trachea midline Chest inspection of chest normal Resp normal respiratory effort and no use of accessory muscles Effort and Inspection: able to speak in complete sentences Auscultation: diminished lung sounds Cardio S1 normal heart sound and S2 normal heart sound Rate: tachycardic GI normal to inspection, nondistended, normoactive bowel sounds Extremity no clubbing, cyanosis or edema Skin Skin Narrative: Wrapped lower extremities. Neuro CN's II-XII intact bilaterally, moves all extremities and no focal motor deficits Psych cooperative and affect normal Lab / Micro Data 04/03/25 05:32 04/03/25 05:32 Labs: Laboratory Results - last 24 hr 04/03/25 00:05: WBC 15.7 H, RBC 3.41 L, Hgb 10.2 L, Hct 32.2 L, MCV 94.4 H, MCH 29.9, MCHC 31.7 L, RDW Std Deviation 45.3 H, RDW Coeff of Humaira 13.2, Plt Count 300, MPV 10.8, Immature Gran % (Auto) 0.600, Neut % (Auto) 76.4 H, Lymph % (Auto) 13.5 L, Ada % (Auto) 7.0, Eos % (Auto) 1.9, Baso % (Auto) 0.6, Absolute Neuts (auto) 12.0 H, Absolute Lymphs (auto) 2.12, Nucleated RBC % 0, PT 13.4, INR 1.0, APTT 37.3 H, D-Dimer Quant (PE/DVT) 1.86 H*, Sodium 139, Potassium 4.4,Chloride 104, Carbon Dioxide 20.8 L, Anion Gap 14, BUN 42 H, Creatinine 1.88 H, Estim Creat Clear Calc 28.20 L, Est GFR (MDRD) Non-Af 35 L, BUN/Creatinine Ratio22.3 H, Glucose 255 H, Calcium 8.8, Troponin T High Sens 58 H*, NT pro BNP II 6552 H 04/03/25 02:25: Lactic Acid 1.3 04/03/25 02:45: Magnesium 2.3 H, Troponin T Hi Sens 2 Hr 76 H* 04/03/25 04:20: Troponin T Hi Sens 4Hr 80 H* 04/03/25 05:32: WBC 13.0 H, RBC 3.09 L, Hgb 9.3 L, Hct 28.9 L, MCV 93.5, MCH 30.1, MCHC 32.2, RDW Std Deviation 45.9 H, RDW Coeff of Humaira 13.4, Plt Count 268,MPV 11.4, Immature Gran % (Auto) 0.500, Neut % (Auto) 94.8 H, Lymph % (Auto) 3.3L, Ada % (Auto) 1.1, Eos % (Auto) 0.0, Baso % (Auto) 0.3, Absolute Neuts (auto)12.4 H, Absolute Lymphs (auto) 0.43 L, Nucleated RBC % 0, Sodium 137, Potassium 4.5, Chloride 104, Carbon Dioxide 15.5 L, Anion Gap 18 H, BUN 44 H, Creatinine 1.77 H, Estim Creat Clear Calc 28.47 L, Est GFR (MDRD) Non-Af 38 L, BUN/Creatinine Ratio 24.6 H, Glucose 428 H, Calcium 7.9, Total Bilirubin 0.38, AST 24, ALT 16, Alkaline Phosphatase 80, Total Protein 6.0, Albumin 3.6, Globulin 2.4, Albumin/Globulin Ratio 1.5, Triglycerides 44, Cholesterol 137, LDLCholesterol, Calc 80, VLDL Cholesterol 9, HDL Cholesterol 48, Cholesterol/HDL Ratio 2.87, Procalcitonin 0.31 H, TSH 0.530 04/03/25 05:53: POC Glucose 435 H Micro: Microbiology 04/03/25 05:10 Mucosa - Nasopharyngeal Respiratory Panel (PCR) - Final 04/03/25 05:51 Urine, Clean Catch Legionella Antigen - Final 04/03/25 05:51 Urine Catheter - Catheter Streptococcus pneumoniae Antigen (M- Final 04/03/25 00:25 Mucosa - Nose SARS-CoV-2, Influenza & RSV (PCR) - Final ABG Data ABG results: ABG 04/03/25 04/03/25 00:16 05:38 Specimen Type JUANITA ART Sample Site Not entered R Radial pH 7.38 Bicarbonate Actual 17.5 L Total CO2 18 Base Excess -8 L O2 Saturation 96 O2 % 30.0 30.0 ABG pCO2 29.8 L ABG pO2 83 Fili Test Positive VBG pH 7.35 VBG pO2 44 H VBG HCO3 26 VBG Total CO2 27 VBG O2 Sat (Calc) 76 H VBG Base Excess 0 POC Mix VBG pCO2 Pt Tmp 46.6 Respiration Rate 12 O2 Delivery Device BiPAP BiPAP Vent Mode Not entered POC PEEP 10 Peak Inspir Pressure 18 Clinical Comments 18. 10. 30% Imaging Radiology Impression Chest X-Ray 04/03/25 00:30 IMPRESSION: Multifocal airspace opacities of the lungs are more prominent in the perihilar zones and the lower lobes, possibly multifocal congestion and/or pneumonia. Reading Location: [place] [address] Chest CTA 04/03/25 02:34 IMPRESSION: Mild bilateral pleural effusions. Passive atelectatic airspace disease/airspace consolidations of the lower lobes. Bilateral chronic perihilar interstitial pulmonary thickening with associated mild multifocal ground-glass densities, possibly superimposed pneumonia. Mild diffuse spondylosis. No CT evidence of pulmonary embolus or aortic dissection. Reading Location: [place] [address] Charges/Coding Visit Charges Inpatient E&M: 52922 Init Hosp L3 04/03/25 0904 <Electronically signed by Landry Fagan DO> Cosigner Signature (if applicable): CC: Dr. Ryley Jeter MD~ Signed [facility] Work Phone: [phone] 449-767306-03-2025 Consult note [facility] Medical Records Department [address] [place] [id number] Consultation - Foil Stamp Operator 04/03/25 0850 MR#: [id number] Acct: [id number] Name: ENOC ARMANDO Rep #:[id number] : 1945 79 From: Landry aFgan DO PCP: Dr. Ryley Jeter MD Status:ADM IN Location: ICU ICU04-1 Assessment & Plan Assessment/Plan (1) Acute hypoxic respiratory failure: PLAN: Plan RECOMMENDATIONS: 1. Continue supplemental oxygen to maintain saturations at or above 90%. 2. Empiric BiPAP therapy with naps and nightly. 3. Continue empiric antimicrobials, bronchodilators and steroids. 4. Await results of echocardiogram. 5. Gentle diuresis as tolerated by hemodynamics and renal function. 6. The patient will undoubtedly need to follow-up in the pulmonary medicine clinic so that baselinePFTs can be obtained. 7. Smoking cessation is advisable. IMPRESSIONS: 1. Acute hypoxemic respiratory failure Clinical concern for multifactorial etiology with possible COPD exacerbation along with possible CHF contributing. The patient has an extensive tobacco abuse history, but has never been formally diagnosed with COPD. He does have evidence of bilateral pleural effusions along with questionable airspace disease, concerning for pneumonia. Accordingly, the patient will be continued on scheduled bronchodilators, antimicrobials and IV steroids. In addition, scheduled diuretics will be continued, as tolerated by hemodynamics and renal function. In the interim, surface echocardiogram is pending. The patient appears improved clinically with the aforementioned interventions with minimal supplemental oxygen requirement. Ideally, the patient will need outpatient follow-up in the pulmonary medicine office after discharge so that baseline PFTscan be obtained. 2. Chronic tobacco dependency Tobacco cessation is strongly advised. Recommend outpatient pulmonary follow- upand PFTs. 3. Elevated troponin likely secondary to demand ischemia in the setting of #1 Continue current supportive care while awaiting results of echocardiogram. 4. History of diabetes mellitus/hypertension/hyperlipidemia/chronic kidney disease/BPH Complicates care, management, recovery and prognosis. Continue home medicationsas indicated. CODE STATUS: DNR CCA without intubation This note was generated with [employer] My Itemsation software. It may contain incorrectwords, spelling, and punctuation that were not noted in checking the note beforesigning. HPI Consult Data Date of Consult: 04/03/25 HPI Narrative Reason for Consultation: Respiratory failure HPI Narrative: The patient is an 79-year-old male, with a history as outlined below, who presented to the emergency department via EMS on the morning of April 03 with complaints of worsening dyspnea. The patient has an extensive tobacco abuse history and continues to smoke 0.5 packs of cigarettes per day. He does ut ilizesupplemental oxygen on a nocturnal basis at 4 to 5 L/min. The patient reported that he has never been evaluated by a arc air operator or completed pulmonary function studies. Therefore, it is unknown if the patient has underlying obstructive lung disease. He does not utilize any inhalers at his [facility]. On presentation to the emergency department, the patient was documented to be afebrile but was notably hypertensive with a blood pressure of 206/80 mmHg. Laboratory evaluation was notable for a whiteblood cell count of 15,000. ABG was notable for a pH of 7.38 with a PCO2 of 29 and PO2 of 83. Chemistry profilewas notable for a creatinine of 1.8. Lactate was normal at 1.3. Troponin was mildly elevated at 76. CTA chest demonstrated bilateral pleural effusions with likely associated atelectasis ormild airspace disease in the bases. Strep and urine Legionella antigens were negative. Respiratory viral panel was negative. COVID, influenza and RSV PCR's were negative. The patient was subsequentlyplaced on scheduled diuretics, antimicrobials, bronchodilators and steroids. Inlight of his increased work of breathing, the patient was placed on BiPAP therapy. He was admitted to the medical intensive care unit for further management. This morning, the patient has been weaned from BiPAP to nasal cannula oxygen at 2 L/min. He does report interval improvement in his breathing quality. An echocardiogram has been ordered and is currently pending. The patient's CODE STATUS was once again confirmed this morning to be a DNR CCA withoutintubation. REPLACED BY [facility] Medical History Chronic anemia Tobacco use COPD (chronic obstructive pulmonary disease) HLD (hyperlipidemia) HTN (hypertension) BPH (benign prostatic hyperplasia) Chronic low back pain with sciatica Diabetes mellitus, type 2 CKD (chronic kidney disease), stage III Pneumonia COVID Wears glasses Wears dentures Home Medications ?Medication ?Instructions ?Recorded ?Last Taken ?Type amlodipine 10 mg tablet (Norvasc) 10 mg PO 1200 08/12/21 History aspirin 81 mg tablet,delayed 81 mg PO DAILY 08/05/21 U nknown History release insulin glargine 100 unit/mL (3 15 unit subcut QPM 03/21 Unknown History mL) subcutaneous pen (Lantus Solostar U-100 Insulin) insulin lispro 100 unit/mL 0 unit subcut TID SLIDING S JENNIFER 08/05/21 Unknown History subcutaneous pen tamsulosin 0.4 mg capsule (Flomax) 0.4 mg PO .COMPLEX urination 08/05/21 Unknown History ezetimibe 10 mg tablet 10 mg PO DAILY 04/06/24 Unkn own History lisinopril 5 mg tablet 5 mg PO DAILY 04/06/24 Unkno wn History metoprolol succinate 25 mg 25 mg PO DAILY 04/06/24 Unk nown History tablet,extended release 24 hr blood sugar diagnostic (Contour 09/12/24 Unknown Hist ory Next Test Strips) potassium chloride 20 mEq 20 meq PO BIDCM 30 days #60 tabs 09/14/24 Unknown Rx tablet,extended release(part/cryst) furosemide 40 mg tablet (Lasix) 40 mg PO DAILY 5 Unknown History hydralazine 50 mg tablet 50 mg PO Q8H 04/03/25 Unknow n History Allergy/AdvReac Type Severity Reaction Status Date / Time Corticosteroids AdvReac Other Verified 04/03/25 00:16 (Glucocorticoids) (steroids) Lvjhylw-KZT-LfC Reductase AdvReac Other Verified 04/03/25 00:16 Inhibitor (Ctnrrtx-Ytx-Uxy Reductase Inhibitor) Family History Mother COPD (chronic obstructive pulmonary disease) Father CAD (coronary artery disease) Heart disease Surgical History Hx of cystoscopy Hx of colonoscopy Hx of left cataract extraction Hx of right cataract extraction Social History household members: spouse Smoking Status: Current every day smoker tobacco type: cigarettes alcohol intake: never substance use type: does not use ROS ROS Narrative 10 systems were reviewed with pertinent positives as noted in the HPI above. Physical Exam Const alert, oriented x3 and no apparent distress HEENT normocephalic, head/scalp atraumatic and moist oral mucous membranes Eyes PERRL, EOMs intact bilaterally and conjunctivae normal Neck supple General: trachea midline Chest inspection of chest normal Resp normal respiratory effort and no use of accessory muscles Effort and Inspection: able to speak in complete sentences Auscultation: diminished lung sounds Cardio S1 normal heart sound and S2 normal heart sound Rate: tachycardic GI normal to inspection, nondistended, normoactive bowel sounds Extremity no clubbing, cyanosis or edema Skin Skin Narrative: Wrapped lower extremities. Neuro CN's II-XII intact bilaterally, moves all extremities and no focal motor deficits Psych cooperative and affect normal Lab / Micro Data 04/03/25 05:32 04/03/25 05:32 Labs: Laboratory Results - last 24 hr 04/03/25 00:05: WBC 15.7 H, RBC 3.41 L, Hgb 10.2 L, Hct 32.2 L, MCV 94.4 H, MCH 29.9, MCHC 31.7 L, RDW Std Deviation 45.3 H, RDW Coeff of Humaira 13.2, Plt Count 300, MPV 10.8, Immature Gran % (Auto) 0.600, Neut % (Auto) 76.4 H, Lymph % (Auto) 13.5 L, Ada % (Auto) 7.0, Eos % (Auto) 1.9, Baso % (Auto) 0.6, Absolute Neuts (auto) 12.0 H, Absolute Lymphs (auto) 2.12, Nucleated RBC % 0, PT 13.4, INR 1.0,APTT 37.3 H, D-Dimer Quant (PE/DVT) 1.86 H*, Sodium 139, Potassium 4.4,Chloride 104, Carbon Shppicd16.8 L, Anion Gap 14, BUN 42 H, Creatinine 1.88 H, Estim Creat Clear Calc 28.20 L, Est GFR (MDRD) Non-Af 35 L, BUN/Creatinine Ratio22.3 H, Glucose 255 H, Calcium 8.8, Troponin T High Sens 58 H*, NT pro BNP II 6552 H 04/03/25 02:25: Lactic Acid 1.3 04/03/25 02:45: Magnesium 2.3 H, Troponin T Hi Sens 2 Hr 76 H* 04/03/25 04:20: Troponin T Hi Sens 4Hr 80 H* 04/03/25 05:32: WBC 13.0 H, RBC 3.09 L, Hgb 9.3 L, Hct 28.9 L, MCV 93.5, MCH 30.1, MCHC 32.2, RDW Std Deviation 45.9 H, RDW Coeff of Humaira 13.4, Plt Count 268,MPV 11.4, Immature Gran % (Auto) 0.500, Neut % (Auto) 94.8 H, Lymph % (Auto) 3.3L, Ada % (Auto) 1.1, Eos % (Auto) 0.0, Baso % (Auto) 0.3, Absolute Neuts (auto)12.4 H, Absolute Lymphs (auto) 0.43 L, Nucleated RBC % 0, Sodium 137, Potassium 4.5, Chloride 104, Carbon Dioxide 15.5 L, Anion Gap 18 H, BUN 44 H, Creatinine 1.77 H, Estim Creat Clear Calc 28.47 L, Est GFR (MDRD) Non-Af 38 L, BUN/Creatinine Ratio 24.6 H, Glucose 428 H, Calcium 7.9, Total Bilirubin 0.38, AST 24, ALT 16, Alkaline Phosphatase 80, Total Protein 6.0, Albumin 3.6, Glob ulin 2.4, Albumin/Globulin Ratio 1.5, Triglycerides 44, Cholesterol 137, LDLCholesterol, Calc 80, VLDL Cholesterol 9, HDL Cholesterol 48, Cholesterol/HDL Ratio 2.87, Procalcitonin 0.31 H, TSH 0.530 04/03/25 05:53: POC Glucose 435 H Micro: Microbiology 04/03/25 05:10 Mucosa - Nasopharyngeal Respiratory Panel (PCR) - Final 04/03/25 05:51 Urine, Clean Catch Legionella Antigen - Final 04/03/25 05:51 Urine Catheter - Catheter Streptococcus pneumoniae Antigen (M- Final 04/03/25 00:25 Mucosa - Nose SARS-CoV-2, Influenza & RSV (PCR) - Final ABG Data ABG results: ABG 04/03/25 04/03/25 00:16 05:38 Specimen Type JUANITA ART Sample Site Not entered R Radial pH 7.38 Bicarbonate Actual 17.5 L Total CO2 18 Base Excess -8 L O2 Saturation 96 O2 % 30.0 30.0 ABG pCO2 29.8 L ABG pO2 83 Fili Test Positive VBG pH 7.35 VBG pO2 44 H VBG HCO3 26 VBG Total CO2 27 VBG O2 Sat (Calc) 76 H VBG Base Excess 0 POC Mix VBG pCO2 Pt Tmp 46.6 Respiration Rate 12 O2 Delivery Device BiPAP BiPAP Vent Mode Not entered POC PEEP 10 Peak Inspir Pressure 18 Clinical Comments 18. 10. 30% Imaging Radiology Impression Chest X-Ray 04/03/25 00:30 IMPRESSION: Multifocal airspace opacities of the lungs are more prominent in the perihilar zones and the lower lobes, possibly multifocal congestion and/or pneumonia. Reading Location: [place] [address] Chest CTA 04/03/25 02:34 IMPRESSION: Mild bilateral pleural effusions. Passive atelectatic airspace disease/airspace consolidations of the lower lobes. Bilateral chronic perihilar interstitial pulmonary thickening with associated mild multifocal ground-glass densities, possibly superimposed pneumonia. Mild diffuse spondylosis. No CT evidence of pulmonary embolus or aortic dissection. Reading Location: [place] [address] Charges/Coding Visit Charges Inpatient E&M: 63618 Init Hosp L3 04/03/25 0904 Cosigner Signature (if applicable): CC: Dr. Ryley Jeter MD~ Signed [facility]06-03-2025 History and physical note Author Dyana Hwang [facility] Note Date/Time April 03, 2025 4:42a m [facility] Medical Records Department [address] [place] [address] H&P Exam - Hospitalist 04/03/25 0402 MR#: [id number] Acct: [id number] Name: ENOC ARMANDO Rep #:[id number] : 1945 79 From: Dyana Hwang MD PCP: Dr. Ryley Jeter MD Status:ADM IN Location: ICU ICU04-1 HPI - General General Date of Admission: 04/03/25 Date of Service: 04/03/25 Chief Complaint: Dyspnea. HPI Narrative The patient is an 79 y/o M w/ PMHx: CKD stage III unclear subtype per GFR trending, Chronic macrocytic anemia, HTN, HLD, Diabetes mellitus type II, BPH with obstructive pathology, Tobacco use who presents to the [facility] ED on 04/03/2025 with history of worsening dyspnea starting earlier in the day with no recent peripheral edema, weight gain orthopnea actually reporting that he is lost some weight with no associated chest discomfort and given worsening prompted ED evaluation to be cautious. Patient family was present denies any recent illness in the home or near the patient. They do notethat he is had recent issues wheezing. They also note he is a very brittle diabetic and that he has not gotten his insulin this evening. Workup in the ED included T97.8 Temporal, heart rate 103, BP 206/80, respiratory rate 25, presenting initially on 9% on CPAP 30% FiO2 transition to BiPAP 30% noted to be at 100%-->T97.7, heart rate 85, BP 169/58, respiratory rate 16--> most currentlyheart rate 85, BP 172/65, respiratory rate 17, 100% on 4 L nasal cannula, CBC with WC 15.7, hemoglobin 10.2, MCV 94.4, platelets 300 with left shift, D-dimer 1.86, VBG with pH 7.35, PO244, O2 saturation 76% on BiPAP, BMP with carbon oxide20.8, BUN/creatinine 42/1.88, GFR 35, glucose 255, initial troponin 58 with repeat delta troponin 76, NT proBNP II 6552, chest x-ray with multifocal airspace opacities of the lungs more prominent in the perihilar zones in the lower lobes concerning for possible multifocal congestion and/or pneumonia, CTA chest with mild bilateral pleural effusions, passive atelectatic airspace disease/airspace consolidations of the lower lobes, bilateral chronic perihilar interstitial pulmonary thickening with associated mild multifocal groundglass densities possibly superimposed pneumonia, mild diffuse spondylosis with no evidence of any pulmonary embolus or aortic dissection, EKG with sinus rhythm with no acute evidence of ischemia. In the ED patient administered DuoNeb therapy as well as Solu-Medrol 125 mg IV x 1, Rocephin 1 g IV x 1, azithromycin 500 mg IV x 1, Lasix 40 mg IV x 1 and sublingual nitroglycerin x 1. REPLACED BY [facility] Medical History (Updated 04/03/25 @ 04:[address] Dyana Hwang MD) Chronic anemia Tobacco use COPD (chronic obstructive pulmonary disease) HLD (hyperlipidemia) HTN (hypertension) BPH (benign prostatic hyperplasia) Chronic low back pain with sciatica Diabetes mellitus, type 2 CKD (chronic kidney disease), stage III Pneumonia COVID Wears glasses Wears dentures Home Medications ?Medication ?Instructions ?Recorded ?Last Taken ?Type amlodipine 10 mg tablet (Norvasc) 10 mg PO 1200 08/12/21 History aspirin 81 mg tablet,delayed 81 mg PO DAILY 08/05/21 U nknown History release insulin glargine 100 unit/mL (3 15 unit subcut QPM 03/21 Unknown History mL) subcutaneous pen (Lantus Solostar U-100 Insulin) insulin lispro 100 unit/mL 0 unit subcut TID SLIDING S JENNIFER 08/05/21 Unknown History subcutaneous pen tamsulosin 0.4 mg capsule (Flomax) 0.4 mg PO .COMPLEX urination 08/05/21 Unknown History ezetimibe 10 mg tablet 10 mg PO DAILY 04/06/24 Unkn own History lisinopril 5 mg tablet 5 mg PO DAILY 04/06/24 Unkno wn History metoprolol succinate 25 mg 25 mg PO DAILY 04/06/24 Unk nown History tablet,extended release 24 hr blood sugar diagnostic (Contour 09/12/24 Unknown Hist ory Next Test Strips) potassium chloride 20 mEq 20 meq PO BIDCM 30 days #60 tabs 09/14/24 Unknown Rx tablet,extended release(part/cryst) furosemide 40 mg tablet (Lasix) 40 mg PO DAILY 5 Unknown History hydralazine 50 mg tablet 50 mg PO Q8H 04/03/25 Unknow n History Allergy/AdvReac Type Severity Reaction Status Date / Time Corticosteroids AdvReac Other Verified 04/03/25 00:16 (Glucocorticoids) (steroids) Lahngbq-OBZ-IkE Reductase AdvReac Other Verified 04/03/25 00:16 Inhibitor (Efotuts-Enk-Hek Reductase Inhibitor) Family History (Updated 04/03/25 @ 04:[address] Dyana Hwang MD) Mother COPD (chronic obstructive pulmonary disease) Father CAD (coronary artery disease) Heart disease Surgical History Hx of cystoscopy Hx of colonoscopy Hx of left cataract extraction Hx of right cataract extraction Social History (Updated 04/03/25 @ 04:[address] Dyana Hwang MD) household members: spouse Smoking Status: Current every day smoker tobacco type: cigarettes alcohol intake: never substance use type: does not use ROS ROS Narrative Admission Review of Systems: CONSTITUTIONAL: No fever, chills, + weakness, fatigue, weight loss. HEENT: Eyes: No visual loss, blurred vision, double vision or yellow sclerae. Ears, Nose, Throat: No hearing loss, sneezing, congestion, runny nose or sore throat. SKIN: No rash or itching, lesions, wounds. CARDIOVASCULAR: No chest pain, chest pressure or chest discomfort, palpitations,edema, orthopnea, syncopal events. RESPIRATORY: + Dyspnea, wheezing, no marked purulent cough. No hemoptysis. GASTROINTESTINAL: No anorexia, nausea, vomiting or diarrhea, abdominal pain, melena, BRBPR. GENITOURINARY: + BPH with obstructive pathology/urinary frequency. No dysuria, urgency or retention. NEUROLOGICAL: No headache, dizziness, syncope, paralysis, ataxia, numbness or tingling in the extremities, focal weakness, change in bowel or bladder control,seizure. MUSCULOSKELETAL: + muscle, back pain, joint pain or stiffness. HEMATOLOGIC: + Chronic anemia, no marked easy history of bleeding/bruising.+ LYMPHATICS: No enlarged nodes. No history of splenectomy. PSYCHIATRIC: No history of depression or anxiety. ENDOCRINOLOGIC: No reports of sweating, cold or heat intolerance. No polyuria orpolydipsia. ALLERGIES: No history of asthma, hives, eczema or rhinitis. Vital Signs Vital Signs Vital Signs: 04/03/25 00:01 04/03/25 00:05 04/03/25 00:05 Temperature 97.8 F 97.8 F Temperature Source Temporal Temporal Pulse Rate 103 H 100 Respiratory Rate 25 H 25 H Respiratory Effort Short of Breath Labored Accessory Muscle Use Respiratory Depth Deep Respiratory Pattern Tachypnea Blood Pressure 206/80 H 206/80 H Blood Pressure Mean 122 122 Pulse Ox 100 100 Oxygen Delivery Method CPAP Bi-pap Oxygen Flow Rate (L/min) Fraction of Inspired Oxygen (FIO2) 30 30 04/03/25 00:13 04/03/25 00:14 04/03/25 00:14 Temperature Temperature Source Pulse Rate 92 115 H 115 H Respiratory Rate 22 H 22 H Respiratory Effort Respiratory Depth Respiratory Pattern Blood Pressure 206/80 H Blood Pressure Mean Pulse Ox 100 Oxygen Delivery Method Oxygen Flow Rate (L/min) Fraction of Inspired Oxygen (FIO2) 30 04/03/25 00:19 04/03/25 00:25 04/03/25 01:05 Temperature 97.7 F L Temperature Source Temporal Pulse Rate 87 85 Respiratory Rate 18 16 Respiratory Effort Respiratory Depth Respiratory Pattern Blood Pressure 169/61 H 169/58 H Blood Pressure Mean 97 95 Pulse Ox 100 100 Oxygen Delivery Method Bi-pap Bi-pap Bi-pap Oxygen Flow Rate (L/min) Fraction of Inspired Oxygen (FIO2) 30 30 30 04/03/25 02:00 04/03/25 03:00 04/03/25 03:52 Temperature 97.9 F 97.7 F L Temperature Source Temporal Temporal Pulse Rate 85 97 96 Respiratory Rate 17 17 17 Respiratory Effort Respiratory Depth Respiratory Pattern Blood Pressure 172/65 H 165/58 H 165/58 H Blood Pressure Mean 100 93 93 Pulse Ox 100 98 99 Oxygen Delivery Method Nasal Cannula Nasal Cannula Bi-pap Oxygen Flow Rate (L/min) 4 4 Fraction of Inspired Oxygen (FIO2) 30 Weight Weight: 142 lb 10.225 oz Body Mass Index (BMI) 22.3 Physical Exam Narrative Physical Examination: General: Awake, alert, oriented x 3 and cooperative, seated upright in ED bed, fatigued appearing, BiPAP in place, respiratory distress lessened with BiPAP transition. Skin: Normal color, normal turgor, no icterus, no cyanosis except occasional stage ecchymoses, abrasion. HEENT: AT/NC, EOMI, PERRLA, mildly dry MM, BiPAP in place, difficult to discern carotid bruit given referred sound, + JVD noted. Lungs: Significantly diminished, occasional end expiratory wheeze primarily anterior red, BiPAP in place, currently respiratory rate improved and respiratory distress lessened, unable to discern current rales or rhonchi. Heart: Mildly tachycardic with regular rhythm; no gallop, rub audible. Abdomen: Soft, NTTP, ND, distant normal BS, no appreciated HSM. Extremities: No cyanosis, no marked clubbing, no marked distal edema. Neurological: Patient awake, alert, oriented as no, cognitive function currentlymildly decreased given respiratory distress presentation but improving, pupils equally reactive to light and accommodation, cranial nerves gross normal, movingall 4 extremities, no focal deficits, strength severely globally decreased secondary to acute presentation Psychiatric: Affect appears fatigued, respiratory distress lessening, no acute evidence of depressive or anxiety feelings. Results Lab / Micro Data 04/03/25 00:05 04/03/25 00:05 Labs: Laboratory Results - last 24 hr 04/03/25 00:05: WBC 15.7 H, RBC 3.41 L, Hgb 10.2 L, Hct 32.2 L, MCV 94.4 H, MCH 29.9, MCHC 31.7 L, RDW Std Deviation 45.3 H, RDW Coeff of Humaira 13.2, Plt Count 300, MPV 10.8, Immature Gran % (Auto) 0.600, Neut % (Auto) 76.4 H, Lymph % (Auto) 13.5 L, Ada % (Auto) 7.0, Eos % (Auto) 1.9, Baso % (Auto) 0.6, Absolute Neuts (auto) 12.0 H, Absolute Lymphs (auto) 2.12, Nucleated RBC % 0, D-Dimer Quant (PE/DVT) 1.86 H*, Sodium 139, Potassium 4.4, Chloride 104, Carbon Dioxide 20.8 L, Anion Gap 14, BUN 42 H, Creatinine 1.88 H, Estim Creat Clear Calc 28.20 L, Est GFR (MDRD) Non-Af 35 L, BUN/Creatinine Ratio 22.3 H, Glucose 255 H, Calcium 8.8, Troponin T High Sens 58 H*, NT pro BNP II 6552 H 04/03/25 02:45: Troponin T Hi Sens 2 Hr 76 H* Micro: Microbiology 04/03/25 00:25 Mucosa - Nose SARS-CoV-2, Influenza & RSV (PCR) - Final ABG Data ABG results: ABG 04/03/25 00:16 Specimen Type JUANITA Sample Site Not entered O2 % 30.0 VBG pH 7.35 VBG pO2 44 H VBG HCO3 26 VBG Total CO2 27 VBG O2 Sat (Calc) 76 H VBG Base Excess 0 POC Mix VBG pCO2 Pt Tmp 46.6 O2 Delivery Device BiPAP Clinical Comments 18. 10. 30% Imaging Radiology Impression Chest X-Ray 04/03/25 00:30 IMPRESSION: Multifocal airspace opacities of the lungs are more prominent in the perihilar zones and the lower lobes, possibly multifocal congestion and/or pneumonia. [facility] CT[facility] 04/03/25 02:34 IMPRESSION: Mild bilateral pleural effusions. Passive atelectatic airspace disease/airspace consolidations of the lower lobes. Bilateral chronic perihilar interstitial pulmonary thickening with associated mild multifocal ground-glass densities, possibly superimposed pneumonia. Mild diffuse spondylosis. No CT evidence of pulmonary embolus or aortic dissection. Reading Location: [place] [address] Assessment & Plan Assessment/Plan (1) Acute hypoxic respiratory failure: PLAN: Plan The patient is an 79 y/o M w/ PMHx: CKD stage III unclear subtype per GFR trending, Chronic macrocytic anemia, HTN, HLD, Diabetes mellitus type II, BPH with obstructive pathology, Tobacco use who presents to the [facility] ED on 04/03/2025 with history of worsening dyspnea starting earlier in the day with no recent peripheral edema, weight gain orthopnea actually reporting that he is lost some weight with no associated chest discomfort and given worsening prompted ED evaluation to be cautious. #1. Acute Hypoxic Respiratory Failure secondary to Acute on Chronic COPD exacerbation and concern for possible superimposed pneumonia, community-acquiredwith questionable concurrent possible overload, acute decompensated HF exacerbation unclear type with concurrently noted #2: Will admit to ICU, maintained on BIPAP, ABG requested, will consult ICU physician per protocol, maintain on ATC duonebs, PRN albuterol, IV methylprednisolone, IV Rocephin and IV azithromycin, HOB, IS parameters, will obtain sputum Cx, respiratory viral panel, urine antigens, procalcitonin, maintain on cardiac telemetry, continue tocycle cardiac enzymes with repeat EKGs as needed, judiciously diuresis as still uncertain that overload is an additional etiology, monitor I/Os, obtain TSH and magnesium level, request echocardiogram, maintain on heparin drip until further elucidate enzyme trending. If enzymes significantly rise may consider cardiologyinvolvement but again confounded especially given respiratory distress upon presentation with possible demand as primary etiology. #2. Indeterminate cardiac enzyme likely secondary to #1 with demand: EKG in ED with sinus rhythm with no acute evidence of ischemia, chest x-ray with multifocal airspace opacities of the lungs more prominent in the perihilar zonesin the lower lobes concerning for possible multifocal congestion and/or pneumonia, CTA chest with mild bilateral pleural effusions, passive atelectatic airspace disease/airspace consolidations of the lower lobes, bilateral chronic perihilar interstitial pulmonary thickening with associated mild multifocal ground-glass densities possibly superimposed pneumonia, mild diffuse spondylosiswith no evidence of any pulmonary embolus or aortic dissection, initial [id number] with repeat delta troponin 76. Will maintain on a monitored bed to assure noacute myocardial infarction with serial cardiac enzymes and EKGs. Magnesium level requested. FLP in AM. Continue aspirin therapy. ECHO requested as noted above. #3. Diabetes mellitus type II: Will continue home insulin regimen with dose now, ADA diet, accu checks w/ ISS. #4. Hypertension: Continue home regimen including metoprolol, lisinopril, amlodipine, hydralazine, IV Lasix judiciously, PRN hydralazine. #5. Hyperlipidemia: Not on statin therapy with intolerance of some sort noted, continue ezetimibe home regimen, FLP in AM. #6. Chronic Kidney Disease Stage III, unclear subtype per GFR trending: Admission BUN/Cr 42/1.88, GFR 35, baseline renal function primarily 1.5-2.0, most recently 02/06/2025 creatinine 1.88, repeat BMP in AM. #7. Chronic macrocytic anemia: Admission hemoglobin 10.2, MCV 94.4, baseline hemoglobin 10-11, stable, continue to trend CBC. #8. BPH with obstructive pathology: Will continue patient home Flomax regimen, monitor for urinary retention. #9. Tobacco Abuse: Encouraged cessation, inpatient consultation per RT, NR if desired. #10. DVT prophylaxis: Heparin drip pending continued cardiac enzyme trending incase further arises. #11. CODE status: Patient NINA is his who is present and living will is currently in place. Discussed CODE status at length including difference betweenFULL code, DNR-CCA and DNR-CC status. Following discussions about the differences in these status, requested DNR-CCA, no intubation. Advanced Care Planning Face to Face Time: 16 minutes. Charges/Coding Visit Charges Inpatient E&M: 92886 Init Hosp L3 Procedures Hospitalists Procedures: 42523 Advncd Care Plan 30 Min 04/03/25 1329 <Electronically signed by Dyana Hwang MD> Cosigner Signature (if applicable): CC: Dr. Dyana Hwang MD; Dr. Ryley Jeter MD~ Signed [facility] Work Phone: 1(340) 804-313906-03-2025 Evaluation note* Diagnosis Onset Date Resolution Status Admit Date Acute hypoxic respiratory failure ac elem April 03, 2025 4:16am MADONNA (acute kidney injury) acute April 03, 2025 4:16am Anemia acute April 03, 2025 4:16am Bradycardia acute April 03 4:16am LV dysfunction acute April 03, 2025 4:16am Non-STEMI (non-ST elevated myocardial infarction) acute April 03, 2025 4:16am CKD (chronic kidney disease) , stage III chronic April 03, 2025 4 :16am HTN (hypertension) chronic April 032024 4:16am [facility] Work Phone: 1(719) 223-332306-03-2025 Discharge summary Author John Brandon [facility] Note Date/Time April 03, 2025 4:11a m [facility] Medical Records Department [address] [place] [id number] Emergency Department Summary 04/03/25 MR#: [id number] Acct: [id number] Name: ENOC ARMANDO Rep #:[id number] : 1945 79 From: John Ramirez PCP: Dr. Ryley Jeter MD Status:REG ER Location: ED HPI History of Present Illness Chief Complaint: Shortness of Breath PFSH REPLACED BY [facility] Medical History Pneumonia COVID Wears glasses Wears dentures Insulin dependent diabetes mellitus Prostate disease Easy bruising Back pain Dietary restriction Smoker History of pain when walking History of stress test Cardiology follow-up encounter Hypertension Home Medications ?Medication ?Instructions ?Recorded ?Last Taken ?Type amlodipine 10 mg tablet (Norvasc) 10 mg PO 1200 08/12/21 History aspirin 81 mg tablet,delayed 81 mg PO DAILY 08/05/21 U nknown History release insulin glargine 100 unit/mL (3 15 unit subcut QPM 03/21 Unknown History mL) subcutaneous pen (Lantus Solostar U-100 Insulin) insulin lispro 100 unit/mL 0 unit subcut TID SLIDING S JENNIFER 08/05/21 Unknown History subcutaneous pen tamsulosin 0.4 mg capsule (Flomax) 0.4 mg PO .COMPLEX urination 08/05/21 Unknown History ezetimibe 10 mg tablet 10 mg PO DAILY 04/06/24 Unkn own History lisinopril 5 mg tablet 5 mg PO DAILY 04/06/24 Unkno wn History metoprolol succinate 25 mg 25 mg PO DAILY 04/06/24 Unk nown History tablet,extended release 24 hr blood sugar diagnostic (Contour 09/12/24 Unknown Hist ory Next Test Strips) potassium chloride 20 mEq 20 meq PO BIDCM 30 days #60 tabs 09/14/24 Unknown Rx tablet,extended release(part/cryst) furosemide 40 mg tablet (Lasix) 40 mg PO DAILY 5 Unknown History hydralazine 50 mg tablet 50 mg PO Q8H 04/03/25 Unknow n History Allergy/AdvReac Type Severity Reaction Status Date / Time Corticosteroids AdvReac Other Verified 04/03/25 00:16 (Glucocorticoids) (steroids) Ytgkjlk-Qab-Itq Reductase AdvReac Other Verified 04/03/25 00:16 Inhibitor Surgical History Hx of cystoscopy Hx of colonoscopy Hx of left cataract extraction Hx of right cataract extraction Social History household members: spouse Smoking Status: Current every day smoker tobacco type: cigarettes alcohol intake: never EXAM Physical Exam Const Vital Signs: 04/03/25 00:01 04/03/25 00:05 04/03/25 00:05 Temperature 97.8 F 97.8 F Temperature Source Temporal Temporal Pulse Rate 103 H 100 Respiratory Rate 25 H 25 H Respiratory Effort Short of Breath Labored Accessory Muscle Use Respiratory Depth Deep Respiratory Pattern Tachypnea Blood Pressure 206/80 H 206/80 H Blood Pressure Mean 122 122 Pulse Ox 100 100 Oxygen Delivery Method CPAP Bi-pap Oxygen Flow Rate (L/min) Fraction of Inspired Oxygen (FIO2) 30 30 04/03/25 00:13 04/03/25 00:14 04/03/25 00:14 Temperature Temperature Source Pulse Rate 92 115 H 115 H Respiratory Rate 22 H 22 H Respiratory Effort Respiratory Depth Respiratory Pattern Blood Pressure 206/80 H Blood Pressure Mean Pulse Ox 100 Oxygen Delivery Method Oxygen Flow Rate (L/min) Fraction of Inspired Oxygen (FIO2) 30 04/03/25 00:19 04/03/25 00:25 04/03/25 01:05 Temperature 97.7 F L Temperature Source Temporal Pulse Rate 87 85 Respiratory Rate 18 16 Respiratory Effort Respiratory Depth Respiratory Pattern Blood Pressure 169/61 H 169/58 H Blood Pressure Mean 97 95 Pulse Ox 100 100 Oxygen Delivery Method Bi-pap Bi-pap Bi-pap Oxygen Flow Rate (L/min) Fraction of Inspired Oxygen (FIO2) 30 30 30 04/03/25 02:00 Temperature Temperature Source Pulse Rate 85 Respiratory Rate 17 Respiratory Effort Respiratory Depth Respiratory Pattern Blood Pressure 172/65 H Blood Pressure Mean 100 Pulse Ox 100 Oxygen Delivery Method Nasal Cannula Oxygen Flow Rate (L/min) 4 Fraction of Inspired Oxygen (FIO2) MDM MDM MDM Narrative Medical decision making narrative: HISTORY OF PRESENT ILLNESS: Chief complaint: Shortness of breath 79-year-old male history of CHF presents with shortness of breath. Notes has been compliant Lasix. Notes earlier today started getting worsening shortness of breath. Denies orthopnea, paroxysmal nocturnal dyspnea or leg swelling. Notes he is losing weight not gaining weight. Denies chest pain. Denies vomiting. Denies bleeding diathesis. The patient denies recent surgery in the last 4 weeks or immobilization in the last 3 days, denies previous diagnosis of DVT or PE, hemoptysis, unilateral leg swelling or malignancy with treatment the last 6 months or palliative. No estrogen use noted. REVIEW OF SYSTEMS: Pertinent positives: Shortness of breath Pertinent negatives: Chest pain PHYSICAL EXAM: Nursing triage notes reviewed, Vital signs reviewed Constitutional: please see mdm HENT: MMM Eyes: Pupils equal round and reactive to light, Extraocular muscles intact Neck: No stridor, no JVD, full neck ROM Lungs: increased work of breathing, conversational dyspnea, bilateral wheezing,coarse breath sounds, no obvious focal consolidation, no obvious rales Heart: Regular rate and rhythm, No murmurs, No rubs and No gallops, 2+ distal pulses (radial, femoral, posterior tibial) in all extremities Abdomen: Soft, there is no tenderness, rigidity, rebound or guarding, no obviousperitoneal signs, no palpable pulsatile abdominal masses, no auscultated abdominal bruit : No CVAT Extremities: No edema Neuro: No new focal neurological deficits, cranial nerves II through XII intact,5/5 strength in all present extremities. Intact sensation to light touch in all present extremities, 2+ reflexes bilateral patella tendons. Skin: No rash or lesions noted MEDICAL DECISION MAKING: Chief Complaint: please see HPI External records reviewed: Reviewed prior imaging studies: Reviewed echocardiogram from 2023 showed ejection fraction of 60% and no regional wall motion abnormality Factors affecting care: CHF, hypertension, type 2 diabetes, Social determinants of health: no former smoker History obtained from others: , EMS Goals of care discussion: Patient noted he would not under any circumstance willbe intubated. He was DNR CCA, DNI Consults: internal medicine only sees Dr. Hwang) [facility] Narrative: The patient was initially tachycardic, tachypneic, saturating 100% on CPAP. He had increased work of breathing conversational dyspnea. Lungs were more consistent with COPD exacerbation with bilateral wheezing, no obvious rales noted initial exam. No signs of volume overload. BiPAP was continued immediately. I considered the following differential diagnosis: COPD exacerbation, CHF exacerbation, PE, ACS, arrhythmia, anemia, electro disturbance, pneumonia, viralillness. Patient was maintained on BiPAP, he was given duo nebs with surgery, on a twelve5 mg Solu-Medrol empirically. Also given nitroglycerin given initial elevated blood pressure concern for possible pulmonary edema. I obtained a broad lab and imaging workup to further elucidate etiology of the patient's complaints ALL IMAGES (IF OBTAINED) HAVE BEEN PERSONALLY REVIEWED AND INTERPRETED BY MYSELF. EKG with normal sinus rhythm rate 100, normal axis, normal intervals, no obviousSTEMI VBG without evidence of significant CO2 retention or respiratory acidosis Chest x-ray shows evidence of right lower lobe pneumonia. Agrees my interpretation. Initial troponin elevated consistent myocardial schema, repeat troponin also elevated, I suspect demand ischemia BNP without significant electrolyte abnormality, noted CKD at baseline CT of the chest shows evidence of PE, shows evidence of pneumonia BNP elevated consistent with CHF exacerbation Upon reevaluation patient's vital signs improved. His blood pressure improved 172/65, tachypnea improved to 17, saturating well on nasal cannula. He was ableto be taken off BiPAP. Patient reported increased shortness of breath while off BiPAP so he is placed back on BiPAP. Patient was started on ceftriaxone azithromycin for antimicrobial coverage. Given 40 mg IV Lasix for signs of volume overload in addition to empiric COPD treatment as above. The etiology patient complaints multifactorial likely including COPD exacerbation, CHF and pneumonia. Given Need for noninvasive ventilation, signs of myocardial ischemia, signs of pneumonia will admit to ICU. Discussed with Dr. Hwang. The patient and/or family, caregivers express understanding. The patient and/orfamily, caregivers agrees with the plan. Shared decision making: I will have a discussion with the patient and or visitors regarding risk/benefits of further testing or admission. They will be made aware of of the risk/benefits inherent in this decision they will be given the opportunity to voice understanding. Total critical care time today provided was at least 60 minutes. This excludes separately billable procedures. Critical care time (if documented) is secondary to the patient having high probability of clinically significant/life threatening deterioration in the patient's condition which required my urgent intervention. Impression: 1. Acute respiratory failure 2. COPD exacerbation 3. CHF exacerbation 4. Hypertensive emergency 5. Elevated troponin Dispo: Admit to ICU This note was generated with MyFeelBack dictation software. It may contain incorrectwords, spelling, and punctuation that were not noted in review of the chart prior to signing. Lab Data Labs: Laboratory Results - last 24 hr 04/03/25 04/03/25 00:05 02:45 WBC 15.7 H RBC 3.41 L Hgb 10.2 L Hct 32.2 L MCV 94.4 H MCH 29.9 MCHC 31.7 L RDW Std Deviation 45.3 H RDW Coeff of Humaira 13.2 Plt Count 300 MPV 10.8 Immature Gran % (Auto) 0.600 Neut % (Auto) 76.4 H Lymph % (Auto) 13.5 L Ada % (Auto) 7.0 Eos % (Auto) 1.9 Baso % (Auto) 0.6 Absolute Neuts (auto) 12.0 H Absolute Lymphs (auto) 2.12 Nucleated RBC % 0 D-Dimer Quant (PE/DVT) 1.86 H* Sodium 139 Potassium 4.4 Chloride 104 Carbon Dioxide 20.8 L Anion Gap 14 BUN 42 H Creatinine 1.88 H Estim Creat Clear Calc 28.20 L Est GFR (MDRD) Non-Af 35 L BUN/Creatinine Ratio 22.3 H Glucose 255 H Calcium 8.8 Troponin T High Sens 58 H* Troponin T Hi Sens 2 Hr 76 H* NT pro BNP II 6552 H ABG Data ABG results: ABG 04/03/25 00:16 Specimen Type JUANITA Sample Site Not entered O2 % 30.0 VBG pH 7.35 VBG pO2 44 H VBG HCO3 26 VBG Total CO2 27 VBG O2 Sat (Calc) 76 H VBG Base Excess 0 POC Mix VBG pCO2 Pt Tmp 46.6 O2 Delivery Device BiPAP Clinical Comments 18. 10. 30% Radiography Diagnostic Testing: Clinical Impression(s) from Imaging Studies Chest X-Ray 04/03/25 00:30 IMPRESSION: Multifocal airspace opacities of the lungs are more prominent in the perihilar zones and the lower lobes, possibly multifocal congestion and/or pneumonia. Reading Location: [place] [address] Discharge Plan Triage Chief Complaint: Shortness of Breath ED Provider: John Brandon Dx/Rx/DC Orders Prescriptions: No Action lisinopril 5 mg tablet 5 mg PO DAILY metoprolol succinate 25 mg tablet extended release 24 hr 25 mg PO DAILY ezetimibe 10 mg tablet 10 mg PO DAILY aspirin 81 mg Tablet,Delayed Release (Dr/Ec) 81 mg PO DAILY tamsulosin [Flomax] 0.4 mg Capsule 0.4 mg PO .COMPLEX Rx Instructions: 0.4 mg orally 3x/week; Takes on //SAT; amlodipine [Norvasc] 10 mg Tablet 10 mg PO 1200 insulin lispro 100 unit/mL Insulin Pen 0 unit SUBCUT TID insulin glargine [Lantus Solostar U-100 Insulin] 100 unit/mL (3 mL) Insulin Pen 15 unit SUBCUT QPM furosemide [Lasix] 40 mg tablet 40 mg PO DAILY hydralazine 50 mg tablet 50 mg PO Q8H (DME) Contour Next Test Strips Strip MISCELLANEOUS 4X/DAY potassium chloride 20 mEq Tablet,Er Particles/Crystals 20 meq PO BIDCM 30 Days Qty: 60 0RF Primary Care Provider: Ryley Jeter Referrals: Ryley Jeter MD [Primary Care Provider] - Print Language: Senegalese What to do if you have Problems For any increased pain, shortness of breath, bleeding, nausea or vomiting, chestpain, or any unexpected problems, contact your Primary Care Provider. Call [facility] ([phone]) or report to the closest Emergency Room. Call 911 if necessary. 04/03/25410 <Electronically signed by John Brandon DO> Cosigner Signature (if applicable): CC: Dr. Ryley Jeter MD ~ Signed [facility] Work Phone: 1(996) 759-952506-03-2025 History and physical note [facility] Medical Records Department [address] [place] [address] H&P Exam - Hospitalist 04/03/25 0402 MR#: [id number] Acct: [id number] Name: ENOC ARMANDO Rep #:[id number] : 1945 79 From: Dyana Hwang MD PCP: Dr. Ryley Jeter MD Status:ADM IN Location: ICU ICU04-1 HPI - General General Date of Admission: 04/03/25 Date of Service: 04/03/25 Chief Complaint: Dyspnea. HPI Narrative The patient is an 79 y/o M w/ PMHx: CKD stage III unclear subtype per GFR trending, Chronic macrocytic anemia, HTN, HLD, Diabetes mellitus type II, BPH with obstructive pathology, Tobacco use who presents to the [facility] ED on 04/03/2025 with history of worsening dyspnea starting earlier in the day with no recent peripheral edema, weight gain orthopnea actually reporting that he is lost some weight with no associated chest discomfort and given worsening prompted ED evaluation bruna cautious. Patient family was present denies any recent illness in the home or near the patient. They do notethat he is had recent issues wheezing. They also note he is a very brittle diabetic and that he has not gotten his insulin this evening. Workup in the ED included T97.8 Temporal, heart rate 103, BP 206/80, respiratory rate 25, presenting initially on 9% on CPAP 30% FiO2 transition to BiPAP 30% noted to be at 100%-->T97.7, heart rate 85, BP 169/58, respiratory rate 16--> most currentlyheart rate 85, BP 172/65, respiratory rate 17, 100% on 4 L nasal cannula, CBC with WC 15.7, hemo globin 10.2, MCV 94.4, platelets 300 with left shift, D-dimer 1.86, VBG with pH 7.35, PO244, O2 saturation 76% on BiPAP, BMP with carbon oxide20.8, BUN/creatinine 42/1.88, GFR 35, glucose 255, initial troponin 58 with repeat delta troponin 76, NT proBNP II 6552, chest x-ray with multifocal airspace opacities of the lungs more prominent in the perihilar zones in the lower lobes concerning for possible multifocal congestion and/or pneumonia, CTA chest with mild bilateral pleural effusions, passive atelectatic airspace disease/airspace consolidations of the lower lobes, bilateral chronic perihilar interstitial pulmonary thickening with associated mild multifocal groundglass densities possibly superimposed pneumonia, mild diffuse spondylosis with no evidence of any pulmonary embolus or aorticdissection, EKG with sinus rhythm with no acute evidence of ischemia. In the ED patient administered DuoNeb therapy as well as Solu-Medrol 125 mg IV x 1, Rocephin 1 g IV x 1, azithromycin 500 mg IV x1, Lasix 40 mg IV x 1 and sublingual nitroglycerin x 1. REPLACED BY [facility] Medical History (Updated 04/03/25 @ 04:[address] Dyana Hwang MD) Chronic anemia Tobacco use COPD (chronic obstructive pulmonary disease) HLD (hyperlipidemia) HTN (hypertension) BPH (benign prostatic hyperplasia) Chronic low back pain with sciatica Diabetes mellitus, type 2 CKD (chronic kidney disease), stage III Pneumonia COVID Wears glasses Wears dentures Home Medications ?Medication ?Instructions ?Recorded ?Last Taken ?Type amlodipine 10 mg tablet (Norvasc) 10 mg PO 1200 08/12/21 History aspirin 81 mg tablet,delayed 81 mg PO DAILY 08/05/21 U nknown History release insulin glargine 100 unit/mL (3 15 unit subcut QPM 03/21 Unknown History mL) subcutaneous pen (Lantus Solostar U-100 Insulin) insulin lispro 100 unit/mL 0 unit subcut TID SLIDING S JENNIFER 08/05/21 Unknown History subcutaneous pen tamsulosin 0.4 mg capsule (Flomax) 0.4 mg PO .COMPLEX urination 08/05/21 Unknown History ezetimibe 10 mg tablet 10 mg PO DAILY 04/06/24 Unkn own History lisinopril 5 mg tablet 5 mg PO DAILY 04/06/24 Unkno wn History metoprolol succinate 25 mg 25 mg PO DAILY 06/06/24 Unk nown History tablet,extended release 24 hr blood sugar diagnostic (Contour 09/12/24 Unknown Hist ory Next Test Strips) potassium chloride 20 mEq 20 meq PO BIDCM 30 days #60 tabs 09/14/24 Unknown Rx tablet,extended release(part/cryst) furosemide 40 mg tablet (Lasix) 40 mg PO DAILY 5 Unknown History hydralazine 50 mg tablet 50 mg PO Q8H 04/03/25 Unknow n History Allergy/AdvReac Type Severity Reaction Status Date / Time Corticosteroids AdvReac Other Verified 04/03/25 00:16 (Glucocorticoids) (steroids) Gpurmqd-PTD-GaI Reductase AdvReac Other Verified 04/03/25 00:16 Inhibitor (Rtizvzn-Mhr-Glk Reductase Inhibitor) Family History (Updated 04/03/25 @ 04:[address] Dyana Hwang MD) Mother COPD (chronic obstructive pulmonary disease) Father CAD (coronary artery disease) Heart disease Surgical History Hx of cystoscopy Hx of colonoscopy Hx of left cataract extraction Hx of right cataract extraction Social History (Updated 04/03/25 @ 04:[address] Dyana Hwang MD) household members: spouse Smoking Status: Current every day smoker tobacco type: cigarettes alcohol intake: never substance use type: does not use ROS ROS Narrative Admission Review of Systems: CONSTITUTIONAL: No fever, chills, + weakness, fatigue, weight loss. HEENT: Eyes: No visual loss, blurred vision, double vision or yellow sclerae. Ears, Nose, Throat: No hearing loss, sneezing, congestion, runny nose or sore throat. SKIN: No rash or itching, lesions, wounds. CARDIOVASCULAR: No chest pain, chest pressure or chest discomfort, palpitations,edema, orthopnea, syncopal events. RESPIRATORY: + Dyspnea, wheezing, no marked purulent cough. No hemoptysis. GASTROINTESTINAL: No anorexia, nausea, vomiting or diarrhea, abdominal pain, melena, BRBPR. GENITOURINARY: + BPH with obstructive pathology/urinary frequency. No dysuria, urgency or retention. NEUROLOGICAL: No headache, dizziness, syncope, paralysis, ataxia, numbness or tingling in the extremities, focal weakness, change in bowel or bladder control,seizure. MUSCULOSKELETAL: + muscle, back pain, joint pain or stiffness. HEMATOLOGIC: + Chronic anemia, no marked easy history of bleeding/bruising.+ LYMPHATICS: No enlarged nodes. No history of splenectomy. PSYCHIATRIC: No history of depression or anxiety. ENDOCRINOLOGIC: No reports of sweating, cold or heat intolerance. No polyuria orpolydipsia. ALLERGIES: No history of asthma, hives, eczema or rhinitis. Vital Signs Vital Signs Vital Signs: 04/03/25 00:01 04/03/25 00:05 04/03/25 00:05 Temperature 97.8 F 97.8 F Temperature Source Temporal Temporal Pulse Rate 103 H 100 Respiratory Rate 25 H 25 H Respiratory Effort Short of Breath Labored Accessory Muscle Use Respiratory Depth Deep Respiratory Pattern Tachypnea Blood Pressure 206/80 H 206/80 H Blood Pressure Mean 122 122 Pulse Ox 100 100 Oxygen Delivery Method CPAP Bi-pap Oxygen Flow Rate (L/min) Fraction of Inspired Oxygen (FIO2) 30 30 04/03/25 00:13 04/03/25 00:14 04/03/25 00:14 Temperature Temperature Source Pulse Rate 92 115 H 115 H Respiratory Rate 22 H 22 H Respiratory Effort Respiratory Depth Respiratory Pattern Blood Pressure 206/80 H Blood Pressure Mean Pulse Ox 100 Oxygen Delivery Method Oxygen Flow Rate (L/min) Fraction of Inspired Oxygen (FIO2) 30 04/03/25 00:19 04/03/25 00:25 04/03/25 01:05 Temperature 97.7 F L Temperature Source Temporal Pulse Rate 87 85 Respiratory Rate 18 16 Respiratory Effort Respiratory Depth Respiratory Pattern Blood Pressure 169/61 H 169/58 H Blood Pressure Mean 97 95 Pulse Ox 100 100 Oxygen Delivery Method Bi-pap Bi-pap Bi-pap Oxygen Flow Rate (L/min) Fraction of Inspired Oxygen (FIO2) 30 30 30 04/03/25 02:00 04/03/25 03:00 04/03/25 03:52 Temperature 97.9 F 97.7 F L Temperature Source Temporal Temporal Pulse Rate 85 97 96 Respiratory Rate 17 17 17 Respiratory Effort Respiratory Depth Respiratory Pattern Blood Pressure 172/65 H 165/58 H 165/58 H Blood Pressure Mean 100 93 93 Pulse Ox 100 98 99 Oxygen Delivery Method Nasal Cannula Nasal Cannula Bi-pap Oxygen Flow Rate (L/min) 4 4 Fraction of Inspired Oxygen (FIO2) 30 Weight Weight: 142 lb 10.225 oz Body Mass Index (BMI) 22.3 Physical Exam Narrative Physical Examination: General: Awake, alert, oriented x 3 and cooperative, seated upright in ED bed, fatigued appearing, BiPAP in place, respiratory distress lessened with BiPAP transition. Skin: Normal color, normal turgor, no icterus, no cyanosis except occasional stage ecchymoses, abrasion. HEENT: AT/NC, EOMI, PERRLA, mildly dry MM, BiPAP in place, difficult to discern carotid bruit givenreferred sound, + JVD noted. Lungs: Significantly diminished, occasional end expiratory wheeze primarily anterior red, BiPAP in place, currently respiratory rate improved and respiratory distress lessened, unable to discern current rales or rhonchi. Heart: Mildly tachycardic with regular rhythm; no gallop, rub audible. Abdomen: Soft, NTTP, ND, distant normal BS, no appreciated HSM. Extremities: No cyanosis, no marked clubbing, no marked distal edema. Neurological: Patient awake, alert, oriented as no, cognitive function currentlymildly decreased given respiratory distress presentation but improving, pupils equally reactive to light and accommodation, cranial nerves gross normal, movingall 4 extremities, no focal deficits, strength severely globally decreased secondary to acute presentation Psychiatric: Affect appears fatigued, respiratory distress lessening, no acute evidence of depressive or anxiety feelings. Results Lab / Micro Data 04/03/25 00:05 04/03/25 00:05 Labs: Laboratory Results - last 24 hr 04/03/25 00:05: WBC 15.7 H, RBC 3.41 L, Hgb 10.2 L, Hct 32.2 L, MCV 94.4 H, MCH 29.9, MCHC 31.7 L, RDW Std Deviation 45.3 H, RDW Coeff of Humaira 13.2, Plt Count 300, MPV 10.8, Immature Gran % (Auto) 0.600, Neut % (Auto) 76.4 H, Lymph % (Auto) 13.5 L, Ada % (Auto) 7.0, Eos % (Auto) 1.9, Baso % (Auto) 0.6, Absolute Neuts (auto) 12.0 H, Absolute Lymphs (auto) 2.12, Nucleated RBC % 0, D-Dimer Quant (PE/DVT) 1.86 H*, Sodium 139, Potassium 4.4, Chloride 104, Carbon Dioxide 20.8 L, Anion Gap 14, BUN 42 H, Creatinine 1.88 H, Estim Creat Clear Calc 28.20 L, Est GFR (MDRD) Non-Af 35 L, BUN/Creatinine Ratio 22.3 H, Glucose 255 H, Calcium 8.8, Troponin T High Sens 58 H*, NT pro BNP II 6552 H 04/03/25 02:45: Troponin T Hi Sens 2 Hr 76 H* Micro: Microbiology 04/03/25 00:25 Mucosa - Nose SARS-CoV-2, Influenza & RSV (PCR) - Final ABG Data ABG results: ABG 04/03/25 00:16 Specimen Type JUANITA Sample Site Not entered O2 % 30.0 VBG pH 7.35 VBG pO2 44 H VBG HCO3 26 VBG Total CO2 27 VBG O2 Sat (Calc) 76 H VBG Base Excess 0 POC Mix VBG pCO2 Pt Tmp 46.6 O2 Delivery Device BiPAP Clinical Comments 18. 10. 30% Imaging Radiology Impression Chest X-Ray 04/03/25 00:30 IMPRESSION: Multifocal airspace opacities of the lungs are more prominent in the perihilar zones and the lower lobes, possibly multifocal congestion and/or pneumonia. Reading Location: [place] [address] Chest CTA 04/03/25 02:34 IMPRESSION: Mild bilateral pleural effusions. Passive atelectatic airspace disease/airspace consolidations of the lower lobes. Bilateral chronic perihilar interstitial pulmonary thickening with associated mild multifocal ground-glass densities, possibly superimposed pneumonia. Mild diffuse spondylosis. No CT evidence of pulmonary embolus or aortic dissection. Reading Location: [place] [address] Assessment & Plan Assessment/Plan (1) Acute hypoxic respiratory failure: PLAN: Plan The patient is an 79 y/o M w/ PMHx: CKD stage III unclear subtype per GFR trending, Chronic macrocytic anemia, HTN, HLD, Diabetes mellitus type II, BPH with obstructive pathology, Tobacco use who presents to the [facility] ED on 04/03/2025 with history of worsening dyspnea starting earlier in the day with no recent peripheral edema, weight gain orthopnea actually reporting that he is lost some weight with no associated chest discomfort and given worsening prompted ED evaluation bruna cautious. #1. Acute Hypoxic Respiratory Failure secondary to Acute on Chronic COPD exacerbation and concern for possible superimposed pneumonia, community- acquiredwith questionable concurrent possible overload, acute decompensated HF exacerbation unclear type with concurrently noted #2: Will admit to ICU, teresa de la torreined on BIPAP, ABG requested, will consult ICU physician per protocol, maintain on ATC duonebs, PRN albuterol, IV methylprednisolone, IV Rocephin and IV azithromycin, HOB, IS parameters, will obtain sputum Cx, respiratory viral panel, urine antigens, procalcitonin, maintain on cardiac telemetry,continue tocycle cardiac enzymes with repeat EKGs as needed, judiciously diuresis as still uncertain that overload is an additional etiology, monitor I/Os, obtain TSH and magnesium level, request echocardiogram, maintain on heparin drip until further elucidate enzyme trending. If enzymes significantly rise may consider cardiologyinvolvement but again confounded especially given respiratory distress upon presentation with possible demand as primary etiology. #2. Indeterminate cardiac enzyme likely secondary to #1 with demand: EKG in ED with sinus rhythm with no acute evidence of ischemia, chest x-ray with multifocal airspace opacities of the lungs more prominent in the perihilar zonesin the lower lobes concerning for possible multifocal congestion and/or pneumonia, CTA chest with mild bilateral pleural effusions, passive atelectatic airspace disease/airspace consolidations of the lower lobes, bilateral chronic perihilar interstitial pulmonary thickening with associated mild multifocal ground-glass densities possibly superimposed pneumonia, mild diffuse spondylosiswith no evidence of any pulmonary embolus or aortic dissection, initial [id number] repeat delta troponin 76. Will maintain on a monitored bed to assure noacute myocardial infarction with serial cardiac enzymes and EKGs. Magnesium level requested. FLP in AM. Continue aspirin therapy. ECHO requested as noted above. #3. Diabetes mellitus type II: Will continue home insulin regimen with dose now, ADA diet, accu checks w/ ISS. #4. Hypertension: Continue home regimen including metoprolol, lisinopril, amlodipine, hydralazine, IV Lasix judiciously, PRN hydralazine. #5. Hyperlipidemia: Not on statin therapy with intolerance of some sort noted, continue ezetimibe home regimen, FLP in AM. #6. Chronic Kidney Disease Stage III, unclear subtype per GFR trending: Admission BUN/Cr 42/1.88, GFR 35, baseline renal function primarily 1.5-2.0, most recently 02/06/2025 creatinine 1.88, repeat BMPin AM. #7. Chronic macrocytic anemia: Admission hemoglobin 10.2, MCV 94.4, baseline hemoglobin 10-11, stable, continue to trend CBC. #8. BPH with obstructive pathology: Will continue patient home Flomax regimen, monitor for urinary retention. #9. Tobacco Abuse: Encouraged cessation, inpatient consultation per RT, NR if desired. #10. DVT prophylaxis: Heparin drip pending continued cardiac enzyme trending incase further arises. #11. CODE status: Patient NINA is his who is present and living will is currently in place. Discussed CODE status at length including difference betweenFULL code, DNR-CCA and DNR-CC status. Following discussions about the differences in these status, requested DNR-CCA, no intubation. [facility] Planning Face to Face Time: 16 minutes. Charges/Coding Visit Charges Inpatient E&M: 71358 Init Hosp L3 Procedures Hospitalists Procedures: 79152 Advncd Care Plan 30 Min 04/03/25 0442 Cosigner Signature (if applicable): CC: Dr. Dyana Hwang MD; Dr. Ryley Jeter MD~ Signed [facility]06-03-2025 Discharge summary [facility] Medical Records Department [address] [place] [address] Emergency Department Summary 04/03/25 MR#: [id number] Acct: [id number] Name: ENOC ARMANDO Rep #:[id number] : 1945 79 From: John Ramirez PCP: Dr. Ryley Jeter MD Status:REG ER Location: ED HPI History of Present Illness Chief Complaint: Shortness of Breath [facility] Medical History Pneumonia COVID Wears glasses Wears dentures Insulin dependent diabetes mellitus Prostate disease Easy bruising Back pain Dietary restriction Smoker History of pain when walking History of stress test Cardiology follow-up encounter Hypertension Home Medications ?Medication ?Instructions ?Recorded ?Last Taken ?Type amlodipine 10 mg tablet (Norvasc) 10 mg PO 1200 08/12/21 History aspirin 81 mg tablet,delayed 81 mg PO DAILY 08/05/21 U nknown History release insulin glargine 100 unit/mL (3 15 unit subcut QPM 03/21 Unknown History mL) subcutaneous pen (Lantus Solostar U-100 Insulin) insulin lispro 100 unit/mL 0 unit subcut TID SLIDING S JENNIFER 08/05/21 Unknown History subcutaneous pen tamsulosin 0.4 mg capsule (Flomax) 0.4 mg PO .COMPLEX urination 08/05/21 Unknown History ezetimibe 10 mg tablet 10 mg PO DAILY 04/06/24 Unkn own History lisinopril 5 mg tablet 5 mg PO DAILY 04/06/24 Unkno wn History metoprolol succinate 25 mg 25 mg PO DAILY 04/06/24 Unk nown History tablet,extended release 24 hr blood sugar diagnostic (Contour 09/12/24 Unknown Hist ory Next Test Strips) potassium chloride 20 mEq 20 meq PO BIDCM 30 days #60 tabs 09/14/24 Unknown Rx tablet,extended release(part/cryst) furosemide 40 mg tablet (Lasix) 40 mg PO DAILY 5 Unknown History hydralazine 50 mg tablet 50 mg PO Q8H 04/03/25 Unknow n History Allergy/AdvReac Type Severity Reaction Status Date / Time Corticosteroids AdvReac Other Verified 04/03/25 00:16 (Glucocorticoids) (steroids) Efayhhn-Vzx-Xmo Reductase AdvReac Other Verified 04/03/25 00:16 Inhibitor Surgical History Hx of cystoscopy Hx of colonoscopy Hx of left cataract extraction Hx of right cataract extraction Social History household members: spouse Smoking Status: Current every day smoker tobacco type: cigarettes alcohol intake: never EXAM Physical Exam Const Vital Signs: 04/03/25 00:01 04/03/25 00:05 04/03/25 00:05 Temperature 97.8 F 97.8 F Temperature Source Temporal Temporal Pulse Rate 103 H 100 Respiratory Rate 25 H 25 H Respiratory Effort Short of Breath Labored Accessory Muscle Use Respiratory Depth Deep Respiratory Pattern Tachypnea Blood Pressure 206/80 H 206/80 H Blood Pressure Mean 122 122 Pulse Ox 100 100 Oxygen Delivery Method CPAP Bi-pap Oxygen Flow Rate (L/min) Fraction of Inspired Oxygen (FIO2) 30 30 04/03/25 00:13 04/03/25 00:14 04/03/25 00:14 Temperature Temperature Source Pulse Rate 92 115 H 115 H Respiratory Rate 22 H 22 H Respiratory Effort Respiratory Depth Respiratory Pattern Blood Pressure 206/80 H Blood Pressure Mean Pulse Ox 100 Oxygen Delivery Method Oxygen Flow Rate (L/min) Fraction of Inspired Oxygen (FIO2) 30 04/03/25 00:19 04/03/25 00:25 04/03/25 01:05 Temperature 97.7 F L Temperature Source Temporal Pulse Rate 87 85 Respiratory Rate 18 16 Respiratory Effort Respiratory Depth Respiratory Pattern Blood Pressure 169/61 H 169/58 H Blood Pressure Mean 97 95 Pulse Ox 100 100 Oxygen Delivery Method Bi-pap Bi-pap Bi-pap Oxygen Flow Rate (L/min) Fraction of Inspired Oxygen (FIO2) 30 30 30 04/03/25 02:00 Temperature Temperature Source Pulse Rate 85 Respiratory Rate 17 Respiratory Effort Respiratory Depth Respiratory Pattern Blood Pressure 172/65 H Blood Pressure Mean 100 Pulse Ox 100 Oxygen Delivery Method Nasal Cannula Oxygen Flow Rate (L/min) 4 Fraction of Inspired Oxygen (FIO2) [facility] MDM MDM Narrative Medical decision making narrative: HISTORY OF PRESENT ILLNESS: Chief complaint: Shortness of breath 79-year-old male history of CHF presents with shortness of breath. Notes has been compliant Lasix. Notes earlier today started getting worsening shortness of breath. Denies orthopnea, paroxysmal nocturnal dyspnea or leg swelling. Notes he is losing weight not gaining weight. Denies chest pain. Denies vomiting. Denies bleeding diathesis. The patient denies recent surgery in the last 4 weeks or immobilization in the last 3 days, denies previous diagnosis of DVT or PE, hemoptysis, unilateral leg swelling or malignancy with treatment the last 6 months or palliative. No estrogen use noted. REVIEW OF SYSTEMS: Pertinent positives: Shortness of breath Pertinent negatives: Chest pain PHYSICAL EXAM: Nursing triage notes reviewed, Vital signs reviewed Constitutional: please see mdm HENT: MMM Eyes: Pupils equal round and reactive to light, Extraocular muscles intact Neck: No stridor, no JVD, full neck ROM Lungs: increased work of breathing, conversational dyspnea, bilateral wheezing,coarse breath sounds, no obvious focal consolidation, no obvious rales Heart: Regular rate and rhythm, No murmurs, No rubs and No gallops, 2+ distal pulses (radial, femoral, posterior tibial) in all extremities Abdomen: Soft, there is no tenderness, rigidity, rebound or guarding, no obviousperitoneal signs, no palpable pulsatile abdominal masses, no auscultated abdominal bruit : No CVAT Extremities: No edema Neuro: No new focal neurological deficits, cranial nerves II through XII intact,5/5 strength in allpresent extremities. Intact sensation to light touch in all present extremities, 2+ reflexes bilateral patella tendons. Skin: No rash or lesions noted MEDICAL DECISION MAKING: Chief Complaint: please see HPI External records reviewed: Reviewed prior imaging studies: Reviewed echocardiogram from 2023 showedejection fraction of 60% and no regional wall motion abnormality Factors affecting care: CHF, hypertension, type 2 diabetes, Social determinants of health: no former smoker History obtained from others: , EMS Goals of care discussion: Patient noted he would not under any circumstance willbe intubated. He was DNR CCA, DNI Consults: internal medicine only sees Dr. Hwang) MDM Narrative: The patient was initially tachycardic, tachypneic, saturating 100% on CPAP. He had increased work of breathing conversational dyspnea. Lungs were more consistent with COPD exacerbation with bilateralwheezing, no obvious rales noted initial exam. No signs of volume overload. BiPAP was continued immediately. I considered the following differential diagnosis: COPD exacerbation, CHF exacerbation, PE, ACS, arrhythmia, anemia, electro disturbance, pneumonia, viralillness. Patient was maintained on BiPAP, he was given duo nebs with surgery, on a twelve5 mg Solu-Medrol empirically. Also given nitroglycerin given initial elevated blood pressure concern for possible pulmonary edema. I obtained a broad lab and imaging workup to further elucidate etiology of the patient's complaints ALL IMAGES (IF OBTAINED) HAVE BEEN PERSONALLY REVIEWED AND INTERPRETED BY MYSELF. EKG with normal sinus rhythm rate 100, normal axis, normal intervals, no obviousSTEMI VBG without evidence of significant CO2 retention or respiratory acidosis Chest x-ray shows evidence of right lower lobe pneumonia. Agrees my interpretation. Initial troponin elevated consistent myocardial schema, repeat troponin also elevated, I suspect demand ischemia BNP without significant electrolyte abnormality, noted CKD at baseline CT of the chest shows evidence of PE, shows evidence of pneumonia BNP elevated consistent with CHF exacerbation Upon reevaluation patient's vital signs improved. His blood pressure improved 172/65, tachypnea improved to 17, saturating well on nasal cannula. He was ableto be taken off BiPAP. Patient reported increased shortness of breath while off BiPAP so he is placed back on BiPAP. Patient was started on ceftriaxone azithromycin for antimicrobial coverage. Given 40 mg IV Lasix for signs of volume overload in addition to empiric COPD treatment as above. The etiology patient complaints multifactorial likely including COPD exacerbation, CHF and pneumonia. Given Need for noninvasive ventilation, signs of myocardial ischemia, signs of pneumonia will admitto ICU. Discussed with Dr. Hwang. The patient and/or family, caregivers express understanding. The patient and/orfamily, caregivers agrees with the plan. Shared decision making: I will have a discussion with the patient and or visitors regarding risk/benefits of further testing or admission. They will be made aware of of the risk/benefits inherent in this decision they will be given the opportunity to voice understanding. Total critical care time today provided was at least 60 minutes. This excludes separately billable procedures. Critical care time (if documented) is secondary to the patient having high probability of clinically significant/life threatening deterioration in the patient's condition which required myurgent intervention. Impression: 1. Acute respiratory failure 2. COPD exacerbation 3. CHF exacerbation 4. Hypertensive emergency 5. Elevated troponin Dispo: Admit to ICU This note was generated with MyFeelBack dictation software. It may contain incorrectwords, spelling, and punctuation that were not noted in review of the chart prior to signing. Lab Data Labs: Laboratory Results - last 24 hr 04/03/25 04/03/25 00:05 02:45 WBC 15.7 H RBC 3.41 L Hgb 10.2 L Hct 32.2 L MCV 94.4 H MCH 29.9 MCHC 31.7 L RDW Std Deviation 45.3 H RDW Coeff of Humaira 13.2 Plt Count 300 MPV 10.8 Immature Gran % (Auto) 0.600 Neut % (Auto) 76.4 H Lymph % (Auto) 13.5 L Ada % (Auto) 7.0 Eos % (Auto) 1.9 Baso % (Auto) 0.6 Absolute Neuts (auto) 12.0 H Absolute Lymphs (auto) 2.12 Nucleated RBC % 0 D-Dimer Quant (PE/DVT) 1.86 H* Sodium 139 Potassium 4.4 Chloride 104 Carbon Dioxide 20.8 L Anion Gap 14 BUN 42 H Creatinine 1.88 H Estim Creat Clear Calc 28.20 L Est GFR (MDRD) Non-Af 35 L BUN/Creatinine Ratio 22.3 H Glucose 255 H Calcium 8.8 Troponin T High Sens 58 H* Troponin T Hi Sens 2 Hr 76 H* NT pro BNP II 6552 H ABG Data ABG results: ABG 04/03/25 00:16 Specimen Type JUANITA Sample Site Not entered O2 % 30.0 VBG pH 7.35 VBG pO2 44 H VBG HCO3 26 VBG Total CO2 27 VBG O2 Sat (Calc) 76 H VBG Base Excess 0 POC Mix VBG pCO2 Pt Tmp 46.6 O2 Delivery Device BiPAP Clinical Comments 18. 10. 30% Radiography Diagnostic Testing: Clinical Impression(s) from Imaging Studies Chest X-Ray 04/03/25 00:30 IMPRESSION: Multifocal airspace opacities of the lungs are more prominent in the perihilar zones and the lower lobes, possibly multifocal congestion and/or pneumonia. Reading Location: [place] [address] Discharge Plan Triage Chief Complaint: Shortness of Breath ED Provider: John rBandon Dx/Rx/DC Orders Prescriptions: No Action lisinopril 5 mg tablet 5 mg PO DAILY metoprolol succinate 25 mg tablet extended release 24 hr 25 mg PO DAILY ezetimibe 10 mg tablet 10 mg PO DAILY aspirin 81 mg Tablet,Delayed Release (Dr/Ec) 81 mg PO DAILY tamsulosin [Flomax] 0.4 mg Capsule 0.4 mg PO .COMPLEX Rx Instructions: 0.4 mg orally 3x/week; Takes on //SAT; amlodipine [Norvasc] 10 mg Tablet 10 mg PO 1200 insulin lispro 100 unit/mL Insulin Pen 0 unit SUBCUT TID insulin glargine [Lantus Solostar U-100 Insulin] 100 unit/mL (3 mL) Insulin Pen 15 unit SUBCUT QPM furosemide [Lasix] 40 mg tablet 40 mg PO DAILY hydralazine 50 mg tablet 50 mg PO Q8H (DME) Contour Next Test Strips Strip MISCELLANEOUS 4X/DAY potassium chloride 20 mEq Tablet,Er Particles/Crystals 20 meq PO BIDCM 30 Days Qty: 60 0RF Primary Care Provider: Ryley Jeter Referrals: Ryley Jeter MD [Primary Care Provider] - Print Language: Senegalese What to do if you have Problems For any increased pain, shortness of breath, bleeding, nausea or vomiting, chestpain, or any unexpected problems, contact your Primary Care Provider. Call [facility] ([phone]) or report tothe closest Emergency Room. Call 911 if necessary. 04/03/25 0411 Cosigner Signature (if applicable): CC: Dr. Ryley Jeter MD ~ Signed [facility]06-03-2025 Radiology Diagnostic study note [facility] Imaging Services [address] [place], [place] [id number] CTA Chest W/WO Contrast MR#: [id number] Acct: [id number] Name: ENOC ARMANDO Rep #: [id number] : 1945 M 79 From: Darcy Reese MD PCP: Dr. Ryley Jeter MD Status: REG ER Study:CTA Chest W/WO Contrast Date of Exam: 04/03/25 Exam# [id number] Ordering Dr: Mine Brandon DO PROCEDURE: CTA CHEST W/WO CONTRAST 04/03/2025 REASON FOR EXAM: SOB, ELEVATED D-DIMER TECHNIQUE: CTA imaging of the chest with intravenous contrast. Multiplanar and multisequence images were obtained. CONTRAST: Isovue 370 VOLUME: 100 mL. One or more dose reduction techniques were used (e.g., Automated exposure control, adjustment of the mA and/or kV according to patient size, use of iterative reconstruction technique). RADIATION DOSE SUMMARY: CTDlvol: 8.9 mGy DLP: 182 mGycm COMPARISON: Radiograph on 04/03/2025. FINDINGS: Mild bilateral pleural effusions. Passive atelectatic airspace disease/airspace consolidations of the lower lobes. Bilateral chronic perihilar interstitial pulmonary thickening with associated mild multifocal ground-glass densities, possibly superimposed pneumonia. Mild diffuse spondylosis. Normal enhancement of the main pulmonary artery and right and left pulmonary arteries. Normal enhancement of the bilateral peripheral pulmonary arteries. There is no demonstrated pulmonary embolism. Normal thoracic aorta and visualized great vessels. There is no demonstrated aortic dissection. Normal heart and pericardium. Normal mediastinum. Normal hilar regions. Normal visualized trachea and thickened bronchi. Normal visualized upper abdomen. CT/CTA Chest W/WO Contrast IMPRESSION: Mild bilateral pleural effusions. Passive atelectatic airspace disease/airspace consolidations of the lower lobes. Bilateral chronic perihilar interstitial pulmonary thickening with associated mild multifocal ground-glass densities, possibly superimposed pneumonia. Mild diffuse spondylosis. No CT evidence of pulmonary embolus or aortic dissection. Reading Location: [place] [address] CC: Dr. Ryley Jeter MD; Dr. John Brandon DO ~ Exercise Manager: Signed [facility]06-03-2025 Radiology Diagnostic study note [facility] Imaging Services [address] [place] [address] Chest 1 View (Portable) MR#: [id number] Acct: [id number] Name: ENOC ARMANDO Rep #: [id number] : 1945 M 79 From: Darcy Reese MD PCP: Dr. Ryley Jeter MD Status: REG ER Study:Chest 1 View (Portable) Date of Exam: 04/03/25 Exam# [id number] Ordering Dr: Mine Brandon DO PROCEDURE: CHEST 1 VIEW (PORTABLE) 04/03/2025 REASON FOR EXAM: SOB TECHNIQUE: Frontal view of the chest. COMPARISON: 09/12/2024. FINDINGS: Bilateral perihilar and lower lobe multifocal airspace opacities of the lungs. There is no demonstrated pleural abnormality. Normal heart and pericardium. Normal mediastinum and rehana. Normal visualized pulmonary arteries. Normal visualized aortic arch and descending thoracic aorta. Normal visualized thoracic spine. Normal visualized ribs, clavicles, and shoulders. There is no demonstrated abnormality of the visualized soft tissue structures ofthe upper abdomen. RAD/Chest 1 View (Portable) IMPRESSION: Multifocal airspace opacities of the lungs are more prominent in the perihilar zones and the lower lobes, possibly multifocal congestion and/or pneumonia. Reading Location: [place] [address] CC: Dr. Ryley Jeter MD; Dr. John Brandon DO ~ Exercise Manager: Signed [facility]05-27-2025 Telephone encounter Note* Telephone Encounter - Ej Guidry MA - 03/27/2025 1:23 PM EDT Called pt's Alice with lab results per Dr. Small. Alice verbalized understanding and had no further questions. [id number] Miscellaneous Notes* Telephone Encounter - Ej Guirdy MA - 03/27/2025 1:23 PM EDT Called pt's Alice with lab results per Dr. Small. Alice verbalized understanding and had no further questions. * Telephone Encounter - Ej Guidry MA - 03/27/2025 10:50 AM EDT Left voicemail asking for pt to call back to go over lab results per Dr. Small. Given phone number tocall back. * Telephone Encounter - Ej Guidry MA - 03/27/2025 10:50 AM EDT ----- Message from Ej Isbell sent at 03/27/2025 10:43 AM EDT ----- ----- Message ----- From: Woo Small MD Sent: 03/27/2025 10:35 AM EDT To: Luisa Easley RN Ok we can drop to lasix 40mg daily and continue spironolactone Potassium is normal He can take extra 40mg lasix PRN for weight gain and shortness of breath ----- Message ----- From: Interface, Lab Results In [facility] Sent: 03/24/2025 7:18 AM EDT To: Woo Small MD documented in this [id number] Telephone encounter Note* Telephone Encounter - Ej Guidry MA - 03/27/2025 10:50 AM EDT Left voicemail asking for pt to call back to go over lab results per Dr. Small. Given phone number tocall back. [id number] Telephone encounter Note* Telephone Encounter - Ej Guidry MA - 03/27/2025 10:50 AM EDT ----- Message from Ej Isbell sent at 03/27/2025 10:43 AM EDT ----- ----- Message ----- From: Woo Small MD Sent: 03/27/2025 10:35 AM EDT To: Luisa Easley RN Ok we can drop to lasix 40mg daily and continue spironolactone Potassium is normal He can take extra 40mg lasix PRN for weight gain and shortness of breath ----- Message ----- From: Interface, Lab Results In [facility] Sent: 03/24/2025 7:18 AM EDT To: Woo Small MD [id number] NotePatient ID: Enoc Armando is a 79 y.o. male Subjective: HPI: Enoc Armando presents for follow-up of Type 1 diabetes The initial diagnosis of diabetes was made 39 years ago in 1994. Disease course has been stable. Mr. Armando is a 79 y.o. male patient who [...] being taken. Patient does not see a chief of party. Eye exam is current. Currently taking: No [...] medications, past family his (more content not included)...[facility]05-12-2025 History of Present illness Narrative* Paty Ortega, AUTO CRANE DRIVER - 03/12/2025 1:50 PM EDT Images from the original note were not included. Patient ID: Enoc Armando is a 79 y.o. male Subjective: HPI: Enoc Armando presents for follow-up of Type 1 diabetes The initial diagnosis of diabetes was made39 years ago in 1994. Disease course has been stable. Mr. Armando is a 79 y.o. male patient who presents the office for a follow-up of his type1 diabetes. Patient's most recent hemoglobin A1c is [...] being taken. Patient does not see a chief of party. Eye exam is current. Currently taking: No [...] (one) tablet (30 mg total) by mouth daily. metoprolol succinate (TOPROL-XL) 25 MG 24 hr [...] surgicalhistory and problem list. Objective: BP (!) 166/61 [...] 1 diabetes, under good control Enoc Ariela Armando presents for follow-up of Type 1 diabetes Patient is currently managed with: Humaloginsulin: 10-12 units at breakfast, lunch and at [...] if BG <150 at HS. 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 Had bilat cataract extraction Dr. Lopez. Sees Dr. Browne in [place] every year routinely.Has blurred vision with low [...] feel that he needs further neurologic evaluation atthis time. Reports falling in the bathtub summer [...] good. Efforts to improve compliance (if necessary) willbe directed at dietary modifications: Limit portion sizes, increased exercise and regular blood sugar monitorin times daily. 4. Follow up: 4-5 months 5. Record blood sugar readings as instructed. Call if BG consistently <70 or >250. [phone] Continue to check blood sugar 3 times daily. Patient has been checking blood glucoses 3 times daily for the past 90 days. His insurance will notcover 4 checks per day he reports. Patient [...] CNP 03/12/25 1:21 PM documented in this [id number] NoteGeneral Cardiology New Patient Clinic Consult [facility], Heart & Vascular 03/09/2025 Woo Small MD [address] [place] [address], 3rd Floor Medical Office Building [facility] [address] Patient: Enoc Armando Date of : 1945 (79 y.o.) PCP: [...] to be ischemic 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 (Primary) Patient underwent [...] or concerns. Follow-up: No follow-ups on file. oWo Small MD, [facility] Non-Invasive Cardiology [facility] P:[phone] F:[phone] History of Present Illness: Enoc Armando is a 79 y.o. man with a past medical history of insulin-dependent diabetes for 30 years, history of tobacco use, recent COVID infection with systolic dysfunction ejection fraction ranging from 35 to 45% who presented initially to [facility]. He underwent stress testing which showed inferior wall abnormality as well as ejection fraction of 50%. I initially met with him back in January 2024 and he was doing quite well, however he presented in October with symptoms of fatigue, malaise, flash pulmonary edema and hypertensive emergency with reduced ejection fraction at [facility]. 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 Tobacco abuse Past Surgical History: Procedure Laterality Date CATARACT EXT/ECCE Bilateral 12/2012,07/2014 [place] CATH PLMT L HRT & ARTS W/NJX & ANGIO IMG S&I N/A 10/27/2024 Procedure: Coronary Angiogram; Surgeon: Elías Rodriguez MD; Location: HYBRID LONG DISTANCE OPERATOR; Service: Cardiovascular MN CATH PLMT L HRT & ARTS W/NJX & ANGIO IMG S&I N/A 10/27/2024 Procedure: Left Heart Cath; Surgeon: Elías Rodriguez MD; Location: HYBRID LONG DISTANCE OPERATOR; Service: Cardiovascular SKIN CANCER EXCISION 09/2021 L ear Family History Problem Relation Age of Onset Coronary artery disease Father Alzheimer's disease Father Social History Tobacco Use Smoking Statu (more content not included)...[facility] [id number] History of Present illness Narrative* Woo Small MD - 03/09/2025 9:39 AM EDT General Cardiology New Patient Clinic Consult [facility] Heart & Vascular 03/09/2025 Woo Small MD [address] [place] [address] 3rd Floor Medical Office [facility] [address] Patient: Enoc Armando Date of : 1945 (79 y.o.) PCP: [...] to be ischemic 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 (Primary) Patient underwent [...] also having some left arm heaviness if heraises it over his head, some evidence of left subclavian stenosis Follows with vascular surgery - continue to monitor Bilateral carotid artery stenosis As above It has been a pleasure caring for this patient. Please don't hesitate to reach out to my office directly with any questions or concerns. Follow-up: No follow-ups on file. Woo Small MD, [facility] Non-Invasive Cardiology [facility] P:[phone] F:[phone] History of Present Illness: Enoc Armando is a 79 y.o. man with a past medical history of insulin-dependent diabetes for 30 years, history of tobacco use, recent COVID infection with systolic dysfunction ejection fraction ranging from 35 to 45% who presented initially to [facility]. He underwent stress testing which showedinferior wall abnormality as well as ejection fraction of 50%. I initially met with him back in January 2024 and he was doing quite well, however he presented in October with symptoms of fatigue, malaise, flash pulmonary edema and hypertensive emergency with reduced ejection fraction at [facility]. 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 Tobacco abuse Past Surgical History: Procedure Laterality Date CATARACT EXT/ECCE Bilateral 12/2012,07/2014 [place] CATH PLMT L HRT & ARTS W/NJX & ANGIO IMG S&I N/A 10/27/2024 Procedure: Coronary Angiogram; Surgeon: Elías Rodriguez MD; Location: HYBRID LONG DISTANCE OPERATOR;Service: Cardiovascular MN CATH PLMT L HRT & ARTS W/NJX & ANGIO IMG S&I N/A 10/27/2024 Procedure: Left Heart Cath; Surgeon: Elías Rodriguez MD; Location: HYBRID LONG DISTANCE OPERATOR; Service: Cardiovascular SKIN CANCER EXCISION 09/2021 L ear Family History Problem Relation Age of Onset Coronary artery disease Father Alzheimer's disease Father Social History Tobacco Use Smoking Status Every Day Current packs/day: 0.50 Average packs/day: 0.5 packs/day for 61.4 years (30.7 ttl pk-yrs) Types: Cigarettes Start date: 1965 Smokeless Tobacco Never Allergies: Dmwbtla-ccp-onj reductase inhibitors All of the information has [...] (one) tablet (30 mg total) by mouth daily., Disp: 90 tablet, Rfl: 3 metoprolol succinate [...] 3 tablet, Rfl: 3 OXYGEN-AIR DELIVERY SYSTEMS [facility] [place] Inhale 2 L/min See Admin Instructions ., [...] Pulse 73 Ht 5' 7 Wt 63.4 kg(139 lb 12.8 oz) SpO2 98% BMI 21.90 [...] cm/s with calcification are noted. Based on orosco scale and color doppler, greater than 70% [...] arterial duplex was normal Echocardiogram reviewed from [facility], 10/11/2023 moderately decreased ejection fraction estimated at [...] 0.3 10/27/2024 The ASCVD Risk score (Dasha SIMS, et al., 2019) failed to calculate for the following reasons: The 2019 ASCVD risk score is only valid for ages 40 to 79 Risk score cannot be calculated because patient has a medical history suggesting prior/existing ASCVD documented in this [id number] Instructions* Patient Instructions* Woo Small MD - 03/09/2025 7:56 AM EDT How to Contact your Care Team: Provider: Dr. Woo Small MD Clinic Nurse: FIDEL Moran Clinic MA: SUSAN Pagan REFILLS: When in need for refills please call your care team or the office at [phone]. Please include medication name, pharmacy name, and [...] work in 2 weeks documented in this [id number] NoteHMS DISCHARGE SUMMARY -- [facility] Enoc Armando : 1945 Admitted: 02/28/2025 Discharge Date: 03/05/25 PCP Handoff Recommended Outpatient Testing None Results Pending At Discharge None Clinical Summary Enoc Armando is a 79 y.o. male patient of Ryley Jeter MD with history of type I IDDM, hypertension, CAD, diastolic HF, dyslipidemia, COPD, CKD presented to [facility] on 02/28/2025 with shortness of breath. Assessment/plan [...] mg total) by mouth daily . Basaglar KwikPen U-100 Insulin 100 unit/mL (3 mL) Inpn [...] . Quantity: 3 tablet OXYGEN-AIR DELIVERY SYSTEMS MISC Inhale 2 L/min See Admin Instructions . pen needle, diabetic 32 gauge x Ndle Commonly known as: BD Ultra-Fine Jolynn Pen Needle Use as directed 4x daily Dx code E10.65 . Quantity: 400 each tamsulosin 0.4 mg capsule Commonly known as: FLOMAX Take 1 (one) capsule (0.4 mg total) by mouth daily . (more content not included)...[facility]05-04-2025 NoteHMS PROGRESS NOTE Patient Name: Enoc Armando : 1945 Assessment and Plan Enoc Armando is a 79 y.o. male patient of Ryley Jeter MD with history of type I IDDM, hypertension, CAD, diastolic HF, dyslipidemia, COPD, CKD presented to [facility] on 02/28/2025 with shortness of breath. Assessment/plan [...] Home Quality Measures DVT Prophylaxis: heparin subcutaneous Osborne Catheter: absent Code Status Full Code Primary [...] affect AUTHENTICATED BY BERNADETTE PARNELL ON 03/04/2025 11:10:[address] [place] [address] 03-03-2025 NoteHMS PROGRESS NOTE Patient Name: Enoc Armando : 1945 Assessment and Plan Enoc Armando is a 79 y.o. male patient of Ryley Jeter MD with history of type I IDDM, hypertension, CAD, diastolic HF, dyslipidemia, COPD, CKD presented to [facility] on 02/28/2025 with shortness of breath. 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 male with history [...] ECG 12 Lead Final Result by Conchita Yañez MD (02/28/2025 0433) Echocardiogram complete Final Result by Woo Small MD (03/02/2025 1603) Cardiac Catheterization Final Result by Elías Rodriguez MD (10/27/2024 0935) Review of Systems: The following system(s) were [...] dictation software was used Aparna Browne MSN, DISHWASHER PREPARER, ANP-C [1] Current Facility-Administered Medications Medication Dose Route Frequency Provider Last Rate Last Admin acetaminophen (TYLENOL) tablet 650 mg 650 mg Oral Q4H PRN Delma Vasquez PA-C 650 mg at 03/01/25 0018 amLODIPine (NORVASC) tablet 10 mg 10 mg Oral Daily Jess Garcia MD 10 mg at 03/02/25 0823 aspirin EC tablet 81 mg 81 mg Oral Daily Jess Garcia MD 81 mg at 03/03/25 0912 azithromycin (ZITHROMAX) 500 mg in sodium chloride (NS) 0.9% 250 mL (vialmate) 500 mg Intravenous Q24H Pema Dunbar MD 250 mL/hr at 03/02/25 1712 500 mg at 03/02/25 1712 cefTRIAXone (ROCEPHIN) IVPB 2 g (premix) 2,000 mg Intravenous Q24H Pema Dunbar MD 100 mL/hr at 03/02/25 1623 2,000 mg at 03/02/25 1623 docusate sodium (COLACE) capsule 100 mg 100 mg Oral Daily Jess Garcia MD 100 mg at 03/02/25 0823 ezetimibe (ZETIA) tablet 10 mg 10 mg Oral Daily Jess Garcia MD 10 mg at 03/03/25 0912 furosemide (LASIX) injection 20 mg 20 mg Intravenous BID Pema Dunbar MD 20 mg at 03/03/25 0913 heparin (porcine) 25,000 unit/250 mL(100 unit/mL) in D5W infusion 0-70 Units/kg/hr Intravenous Continuous Pema Dunbar MD 9 mL/hr at 03/03/25 0945 14 Units/kg/hr at 03/03/25 0945 heparin bolus from bag 0-5,000 Units 0-5,000 Units Intravenous Con (more content not included)...[facility]05-02-2025 NoteHMS PROGRESS NOTE Patient Name: Enoc Armando : 1945 Assessment and Plan Enoc Armando is a 79 y.o. male patient of Ryley Jeter MD with history of type I IDDM, hypertension, CAD, diastolic HF, dyslipidemia, COPD, CKD presented to [facility] on 02/28/2025 with shortness of breath. Assessment/plan [...] first 24 hours. proBNP 9634, up to ,005/2 Echocardiogram to assess ejection fraction heart structure [...] Home Quality Measures DVT Prophylaxis: heparin subcutaneous Osborne Catheter: absent Code Status Full Code Primary [...] normal mood and affect AUTHENTICATED BY PEMA DUNBAR, ON 03/02/2025 13:48:04[facility] 03-01-2025 NoteHMS PROGRESS NOTE Patient Name: Enoc Armando : 1945 Assessment and Plan Enoc Armando is a 79 y.o. male patient of Ryley Jeter MD with history of type I IDDM, hypertension, CAD, diastolic HF, dyslipidemia, COPD, CKD presented to [facility] on 02/28/2025 with shortness of breath. Assessment/plan [...] Home Quality Measures DVT Prophylaxis: heparin subcutaneous Osborne Catheter: absent Code Status Full Code Primary [...] normal mood and affect AUTHENTICATED BY PEMA DUNBAR, ON 03/01/2025 12:52:52[facility] 02-28-2025 NoteHMS PROGRESS NOTE Patient Name: Enoc Armando : 1945 Assessment and Plan Enoc Armando is a 79 y.o. male patient of Ryley Jeter MD with history of type I IDDM, hypertension, CAD, diastolic HF, dyslipidemia, COPD, CKD presented to [facility] on 02/28/2025 with shortness of breath. Assessment/plan [...] Home Quality Measures DVT Prophylaxis: heparin subcutaneous Osborne Catheter: absent Code Status Full Code Primary [...] normal mood and affect AUTHENTICATED BY PEMA DUNBAR, ON 02/28/2025 13:04:[address] [place] [address] 02-28-2025 NoteHMS HISTORY AND PHYSICAL -- [facility] Patient Name: Enoc Armando : 1945 MR #: [id number] Admit Date: 02/28/2025 Physicians: Ryley Jeter MD (Family); No ref. provider found (Referring) Enoc Armando is a 79 y.o. male patient of Ryley Jeter MD with history of type I IDDM, hypertension, CAD, diastolic HF, dyslipidemia, COPD, CKD presented to [facility] on 02/28/2025 with shortness of breath. Assessment/plan [...] no Quality Measures DVT Prophylaxis: heparin subcutaneous Osborne Catheter: absent Medication Reconciliation: Verified Admitted with these risk variables:Acute Kidney Injury and Acidosis. Please see assessment and plan for further details. Estimated Date of Discharge greater than 2 midnights Code Status Full Code; code status verified on 02/28/2025 with patient (capacity intact) Chief Complaint shortness of breath History of Present Illness Enoc Armando is a 79 y.o. male patient of Ryley Jeter MD with history of type I IDDM, hypertension, CAD, diastolic HF, dyslipidemia, COPD, CKD presented to [facility] on 02/28/2025 with shortness of breath. Patient [...] Procedure Laterality Date CATARACT EXT/ECCE Bilateral 12/2012,07/2014 MN CATH PLMT L HRT & ARTS W/NJX & ANGIO IMG S&I N/A 10/27/2024 Procedure: Coronary Angiogram; Surgeon: Elías Rodriguez MD; Location: HYBRID LONG DISTANCE OPERATOR; Service: Cardiovascular MN CATH PLMT L HRT & ARTS W/NJX & ANGIO IMG S&I N/A 10/27/2024 Procedure: Left Heart Cath; Surgeon: Elías Rodriguez MD; Location: HYBRID LONG DISTANCE OPERATOR; Service: Cardiovascular SKIN CANCER EXCISION 09/2021 L ear Family History Family History Problem Relation Age of Onset Coronary artery disease Father Alzheimer's disease Father Social History Tobacco Use History[1] Social History Substance and Sexual Activity Alcohol Use No Alcohol/week: 0.0 standard drinks of alcohol Social History Substance and Sexual Activity Drug Use No Allergy Information I have reviewed the patient's allergies. Paxxnoh-ybi-mwf reductase inhibitors Home Medications Home medications were reviewed. Review Of Systems All relevant systems have been reviewed and are negative except as noted in HPI or below Physical Examination BP (!) 194/62 Pulse 97 Temp 97.8 degrees F (36.6 degrees C) (Oral) Resp (!) 22 Ht 5' 7 Wt 65.8 (more content not included)...[facility]04-28-2025 History of Present illness Narrative* Ayanna Albert, DO - 02/26/2025 1:00 PM EDT Subjective He has been measuring BP at home and has been 120/70 Right now has ear congestion. Patient ID: Enoc Armando is a 79 y.o. male who presents [...] 37 with the rest of his electrolytes lookingunremarkable blood pressure is elevated here in the [...] DO 02/26/25 1:17 PM [facility] Phone: 1(538) 805-502104-16-2025 History of Present illness Narrative* Ej Guidry MA - 02/14/2025 11:02 AM EDT Refaxed letter written on 01/18/[address] Small to [facility]. documented in this [id number] Instructions* Patient Instructions* Luisa Easley RN - 11/14/2024 11:36 AM EST How to Contact your Care Team: Provider: Dr. Woo Small MD Clinic Nurse: FIDEL Moran Clinic MA: SUSAN Pagan REFILLS: When in need for refills please call your care team or the office at [phone]. Please include medication name, pharmacy name, and specify 30-day or 90-day supply. Please check with your pharmacy within 24 hours of request for your refill. You must follow up as directed to continue current refills. Thank you! documented in this [id number] History of Present illness Narrative* Woo Small MD - 11/14/2024 10:40 AM EST General Cardiology New Patient Clinic Consult [facility], Heart & Vascular 11/14/2024 Woo Small MD [address] [place] [phone] Patient: Enoc Armando Date of : 1945 (78 y.o.) PCP: Ryley Jeter MD Date of Service: 11/14/2024 Chief Complaint: Follow-up Assessment and Plan: 1. 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(Primary) Patient underwent left heart catheterization with multivessel [...] also having some left arm heaviness if heraises it over his head, some evidence of [...] in about 6 months (around 05/14/2025). Woo Small MD, [facility] Non-Invasive Cardiology [facility] P:[phone] F:[phone] History of Present Illness: Enoc Armando is a 78 y.o. man with a past medical history of insulin-dependent diabetes for 30 years, history of tobacco use, recent COVID infection with systolic dysfunction ejection fraction ranging from 35 to 45% who presented initially to [facility]. He underwent stress testing which showedinferior wall abnormality as well as ejection fraction of 50%. I initially met with him back in January 2024 and he was doing quite well, however he presented in October with symptoms of fatigue, malaise, flash pulmonary edema and hypertensive emergency with reduced ejection fraction at [facility]. Left heart catheterization was ultimately recommended which demonstrated multivessel coronary artery disease. He had also been complaining of upper and lower extremity heaviness, and he has since been diagnosed with peripheral vascular disease. He presents today after left heart catheterization, consultation with CT surgery and vascular surgery to review all of the findings. He hasactually improved and his functional capacity, is able [...] Procedure Laterality Date CATARACT EXT/ECCE Bilateral 12/2012,07/2014 MN CATH PLMT L HRT & ARTS W/NJX & ANGIO IMG S&I N/A 10/27/2024 Procedure: Coronary Angiogram; Surgeon: Elías Rodriguez MD; Location: HYBRID LONG DISTANCE OPERATOR;Service: Cardiovascular MN CATH PLMT L HRT & ARTS W/NJX & ANGIO IMG S&I N/A 10/27/2024 Procedure: Left Heart Cath; Surgeon: Elías Rodriguez MD; Location: HYBRID LONG DISTANCE OPERATOR; Service: Cardiovascular SKIN CANCER EXCISION 09/2021 L ear Family History Problem Relation Age of Onset Coronary artery disease Father Alzheimer's disease Father Social History Tobacco Use Smoking Status Every Day Current packs/day: 0.50 Average packs/day: 0.5 packs/day for 61.0 years (30.5 ttl pk-yrs) Types: Cigarettes Start date: 1965 Smokeless Tobacco Never Allergies: Vkdtdja-gtp-joq reductase inhibitors All of the information has [...] total) by mouth 2 (two) times a day., Disp: , Rfl: furosemide (LASIX) 40 MG [...] (one) tablet (30 mg total) by mouth daily., Disp: 90 tablet, Rfl: 3 Klor-Con M20 20 mEq tablet, Take 1 (one) tablet (20 mEq total) by mouth daily ., Disp: , Rfl: lisinopriL (PRINIVIL,ZESTRIL) 5 MG tablet, Take 1 (one) tablet (5 mg total) by mouth daily ., Disp:90 tablet, Rfl: 3 metoprolol succinate (TOPROL-XL) 25 MG 24 hr tablet, Take 1 (one) tablet (25 mg total) by mouth daily ., Disp: 90 tablet, Rfl: 3 OXYGEN-AIR DELIVERY SYSTEMS [facility] [place] Inhale 2 L/min See Admin Instructions ., Disp: , Rfl: pen needle, diabetic (BD Ultra-Fine Jolynn Pen Needle) 32 gauge x 532 Ndle, Use as directed 4x daily Dx code E10.65 ., Disp: 400 each, Rfl: 4 predniSONE (DELTASONE) 20 MG tablet, Take 1 (one) tablet (20 mg total) by mouth For 5 days ., Disp:, Rfl: tamsulosin (FLOMAX) 0.4 mg capsule, Take [...] cm/s with calcification are noted. Based on orosco scale and color doppler, greater than 70% [...] arterial duplex was normal Echocardiogram reviewed from [facility], 10/11/2023 moderately decreased ejection fraction estimated at [...] 0.3 10/27/2024 The ASCVD Risk score (Dasha SIMS, et al., 2019) failed to calculate for the following reasons: The 2019 ASCVD risk score is only valid for ages 40 to 79 Risk score cannot be calculated because patient has a medical history suggesting prior/existing ASCVD documented in this [id number] NoteGeneral Cardiology New Patient Clinic Consult [facility], Heart & Vascular 11/14/2024 Woo Small MD [address] [place] [phone] Patient: Enoc Armando Date of : 1945 (78 y.o.) PCP: Ryley Jeter MD Date of Service: 11/14/2024 Chief Complaint: Follow-up Assessment and Plan: 1. 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 (Primary) Patient underwent [...] in about 6 months (around 05/14/2025). Woo Small MD, FACC Non-Invasive Cardiology [facility] P:[phone] F:[phone] History of Present Illness: Enoc Armando is a 78 y.o. man with a past medical history of insulin-dependent diabetes for 30 years, history of tobacco use, recent COVID infection with systolic dysfunction ejection fraction ranging from 35 to 45% who presented initially to [facility]. He underwent stress testing which showed inferior wall abnormality as well as ejection fraction of 50%. I initially met with him back in January 2024 and he was doing quite well, however he presented in October with symptoms of fatigue, malaise, flash pulmonary edema and hypertensive emergency with reduced ejection fraction at [facility]. Left heart catheterization was ultimately recommended which [...] Procedure Laterality Date CATARACT EXT/ECCE Bilateral 12/2012,07/2014 MN CATH PLMT L HRT & ARTS W/NJX & ANGIO IMG S&I N/A 10/27/2024 Procedure: Coronary Angiogram; Surgeon: Elías Rodriguez MD; Location: HYBRID LONG DISTANCE OPERATOR; Service: Cardiovascular MN CATH PLMT L HRT & ARTS W/NJX & ANGIO IMG S&I N/A 10/27/2024 Procedure: Left Heart Cath; Surgeon: Elías Rodriguez MD; Location: HYBRID LONG DISTANCE OPERATOR; Service: Cardiovascular SKIN CANCER EXCISION 09/2021 L ear Family History Problem Relation Age of Onset Coronary artery disease Father Alzheimer's disease Father Social History Tobacco Use Smoking Status Every Day Current packs/day: 0.50 Average packs/day: 0.5 packs/day for 61.0 years (30.5 ttl pk-yrs) Types: Cigarettes Start date: 1965 Smokeless Tobacco Never Allergies: Mtsvgyc-onb-sxc reductase inhibitors All of the information has been reviewed at today's visit and modified if necessary. Home Medications: Current Outpatient Medications: acetaminophen (Tylenol Arthritis Pain) 650 MG CR tablet, Take 1 (one) tablet (650 mg total) by mouth every 8 (eight) hours as needed for pain ., (more content not included)...[facility] [id number] NotePatient ID: Enoc Armando is a 78 y.o. male Subjective: HPI: Enoc Armando presents for follow-up of Type 1 diabetes The initial diagnosis of diabetes was made 39 years ago in 1994. Disease course has been stable. Mr. Armando is a 78 y.o. male patient who [...] required IV insulin gtt. . Hospitalized in [facility]. Reports URI symptoms with ear lockage. Pertinent [...] being taken. Patient does not see a chief of party. Eye exam is current. Currently taking: No oral hypoglycemic medications Admelog insulin: 7 units at breakfast; 8 units at lunch; 8-9 units at supper Lantus insulin: 15 units at bedtime Outpatient Medications Marked as Taking for the 11/13/24 encounter (Office Visit) with Paty Ortega CNP: - acetaminophen (Tylenol Arthritis Pain) 650 MG [...] mouth daily . - OXYGEN-AIR DELIVERY SYSTEMS MISC, Inhale 2 L/min [...] kg (148 lb) 01 (more content not included)...[facility]01-13-2025 History of Present illness Narrative* Paty Ortega, TRISTAN - 11/13/2024 11:29 AM EST Images from the original note were not included. Patient ID: Enoc Armando is a 78 y.o. male Subjective: HPI: Enoc Armando presents for follow-up of Type 1 diabetes The initial diagnosis of diabetes was made39 years ago in 1994. Disease course has been stable. Mr. Armando is a 78 y.o. male patient who presents the office for a follow-up of his type1 diabetes. Patient's most recent hemoglobin A1c is 9.3%. Patient reports that he does follow a diabetic diet. His weight stable from his last visit with us. Complications from his diabetes includes neuropathy. He denies nephropathy or retinopathy. Hospitalized following cardiac cath October 2024, hyperglycemia and hyperkalemia required IV insulin gtt. . Hospitalized in [facility]. Reports URI symptoms with ear lockage. Pertinent [...] being taken. Patient does not see a chief of party. Eye exam is current. Currently taking: No [...] (one) tablet (30 mg total) by mouth daily. lisinopriL (PRINIVIL,ZESTRIL) 5 MG tablet, Take 1 (one) tablet (5 mg total) by mouth daily . metoprolol succinate (TOPROL-XL) 25 MG 24 hr tablet, Take 1 (one) tablet (25 mg total) by mouth daily . OXYGEN-AIR DELIVERY SYSTEMS MIS, Inhale 2 L/min See Admin Instructions . [...] surgicalhistory and problem list. Objective: BP (!) 107/51 [...] Type 1 diabetes, under good control Enoc Armando presents for follow-up of Type 1 diabetes Patient is currently managed with: Humaloginsulin: 8-10 units at breakfast; 8-10 units at [...] if BG <150 at HS. 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 Had bilat cataract extraction Dr. Lopez. Sees Dr. Browne in [place] every year routinely.Has blurred vision with low BG Nephropathy: Positive Creat: 2.37; eGFR: 27 11/06/24. Mialb/creat ratio:195 on 02/21, patient takes lisinopril. Follows with Dr. Albert at , last appointment 08/24, next appointment 02/26/25 at 1:30 PM.. Peripheral Neuropathy: Positive Reports bilateral numbness and [...] feel that he needs further neurologic evaluation atthis time. Reports falling in the bathtub summer [...] good. Efforts to improve compliance (if necessary) willbe directed at dietary modifications: Limit portion sizes, increased exercise and regular blood sugar monitorin times daily. 4. Follow up: 4-5 months 5. Record blood sugar readings as instructed. Call if BG consistently <70 or >250. [phone] Continue to check blood sugar 3 times daily. Patient has been checking blood glucoses 3 times daily for the past 90 days. His insurance will notcover 4 checks per day he reports. Patient [...] CNP 11/13/24 1:21 PM documented in this [id number] Evaluation + Plan note* Assessment & Plan Note - Kristy Parker MD - 11/09/2024 11:54 AM EST Associated Problem(s): Bilateral carotid artery stenosis Patient has evidence of high-grade left ICA stenosis. Based on prior carotid duplex in 2021, degreeof stenosis was 50 to 69%. Based on [...] of these warning signs that warrant emergent medicalattention. Ideally, the patient would be on a statin for plaque stabilization, but will defer at this time dueto intolerance. Would be hard to make the argument for Nexletol in the setting of normal lipid profile. Should the next carotid duplex redemonstrate velocities in the 600s like this past one did, may recommend cerebral angiogram, which would be a lower dose of iodinated contrast than a CTA of the neck.Should there be significant carotid disease on cerebral angiogram, could consider simultaneous transfemoral carotid stenting versus recommendation for open surgical repair; however open repair would have to be performed in conjunction with coronary revascularization. [id number] Miscellaneous Notes* Assessment & Plan Note - Kristy Parker MD - 11/09/2024 11:54 AM ESTAssociated Problem(s): Bilateral carotid artery stenosis Patient has evidence of high-grade left ICA stenosis. Based on prior carotid duplex in 2021, degreeof stenosis was 50 to 69%. Based on [...] of these warning signs that warrant emergent medicalattention. Ideally, the patient would be on a statin for plaque stabilization, but will defer at this time dueto intolerance. Would be hard to make the argument for Nexletol in the setting of normal lipid profile. Should the next carotid duplex redemonstrate velocities in the 600s like this past one did, may recommend cerebral angiogram, which would be a lower dose of iodinated contrast than a CTA of the neck.Should there be significant carotid disease on cerebral angiogram, could consider simultaneous transfemoral carotid stenting versus recommendation for open surgical repair; however open repair would have to be performed in conjunction with coronary revascularization. documented in this [id number] NoteOFFICE CONSULTATION NOTE [facility] [address] (11) [facility] [address] [facility] [address] Physicians: Ryley Jeter MD (Family); [...] Next scheduled follow up. Subjective: HPI: Enoc Armando is a 78 y.o. male with hypertension, [...] ear left ear Toba (more content not included)...[facility]01-09-2025 History of Present illness Narrative* Kristy Parker MD - 11/09/2024 10:36 AM EST OFFICE CONSULTATION NOTE [facility] [address] (11) [facility] [address] [facility] [address] Physicians: Ryley Jeter MD (Family); Sandi Phan,* (Referring) Assessment & Plan: Bilateral carotid artery stenosis Patient has evidence of high-grade left ICA stenosis. Based on prior carotid duplex in 2021, degreeof stenosis was 50 to 69%. Based on [...] of these warning signs that warrant emergent medicalattention. Ideally, the patient would be on a statin for plaque stabilization, but will defer at this time dueto intolerance. Would be hard to make the argument for Nexletol in the setting of normal lipid profile. Should the next carotid duplex redemonstrate velocities in the 600s like this past one did, may recommend cerebral angiogram, which would be a lower dose of iodinated contrast than a CTA of the neck.Should there be significant carotid disease on cerebral angiogram, could consider simultaneous transfemoral carotid stenting versus recommendation for open surgical repair; however open repair would have to be performed in conjunction with coronary revascularization. Follow Up Ordered: Return in about 6 months (around 05/09/2025) for Next scheduled follow up. Subjective: HPI: Enoc Armando is a 78 y.o. male with hypertension, hyperlipidemia, emphysema, type 1 diabetes, CKD4, CHF, CAD, tobacco abuse disorder currently smoking cigarettes, referred to vascular surgery for evaluation of bilateral carotid artery stenosis. Patient underwent bilateral carotid duplex on 10/27/2024 as part of preprocedural cardiovascular examination ahead of possible coronary revascularization. Carotid duplex indicated no right ICA stenosis, but left 50 to 69% stenosis with possible underestimation of stenosis due to calcific shadowing.I personally read and interpreted the carotid duplex and felt that there was an area of calcification with a very elevated velocity concerning for a tighter stenosis than less than 70%. There is no recent or prior advanced carotid imaging. The patient has been deemed a high risk candidate for open coronary revascularization, and is beingsent back to noninvasive and interventional cardiology for further management. The patient states that he has no real limitations at this point aside from leg issues related to low back problems. Thepatient is able to ambulate including up stairs [...] Procedure Laterality Date CATARACT EXT/ECCE Bilateral 12/2012,07/2014 MN CATH PLMT L HRT & ARTS W/NJX & ANGIO IMG S&I N/A 10/27/2024 Procedure: Coronary Angiogram; Surgeon: Elías Rodriguez MD; Location: [facility] LONG [facility] OPERATOR;Service: Cardiovascular MN CATH PLMT L HRT & ARTS W/NJX & ANGIO IMG S&I N/A 10/27/2024 Procedure: Left Heart Cath; Surgeon: Elías Rodriguez MD; Location: [facility] LONG DISTANCE OPERATOR; Service: Cardiovascular SKIN CANCER EXCISION 09/2021 L [...] 1 (one) tablet (650 mg total) by mouthevery 8 (eight) hours as needed for pain . amLODIPine (NORVASC) 10 MG tablet Take 1 (one) tablet (10 mg total) by mouth daily . aspirin 81 MG EC tablet Take 1 (one) tablet (81 mg total) by mouth daily . blood sugar diagnostic (Contour Next Test Strips) strips TEST BLOOD GLUCOSE FOUR TIMES DAILY E10.65. furosemide (LASIX) 40 MG tablet Take 1 [...] by mouth daily . OXYGEN-AIR DELIVERY SYSTEMS [facility] Inhale 2 L/min See Admin Instructions . pen needle, diabetic (BD Ultra-Fine Jolynn Pen Needle) 32 gauge x 5/32 Ndle Use as directed 4x dailyDx code E10.65 . tamsulosin (FLOMAX) 0.4 mg capsule Take 1 (one) capsule (0.4 mg total) by mouth daily . predniSONE (DELTASONE) 20 MG tablet Take 1 (one) tablet (20 mg total) by mouth For 5 days . (Patient not taking: Reported on 11/09/2024 .) Allergies Allergen Reactions Ibyxwrv-Ndt-Fom Reductase Inhibitors Muscle cramps ROS Negative aside [...] cm/s with calcification are noted. Based on orosco scale and color doppler, greater than 70% [...] T wave abnormality Abnormal ECG Confirmed by Ginger Lorenz MD ([id number]) on 10/30/2024 11:27:42 AM Cardiac Catheterization Impression: [...] 11/27/2023 Kristy Parker MD documented in this [id number] Instructions* Patient Instructions* Yesenia Mcdaniel MA - 11/09/2024 10:32 AM EST How to contact your Care Team: Provider: MD Georgia Ludwig CNP Nyoka Fauser, CNP Jill Bender, PA Nurse: Jeannie Rubio RN To reschedule office appointments call Scheduling [phone] In case of an emergency please call 911. When in need of refills please call the phone number listed above. Please include medication name, pharmacy name and specify 30 or 90 day supply Please check with your pharmacy within 24 hours of your request for refill. You must follow up as directed to continue current refills. Thank you! documented in this [id number] Amanda Armando [id number] @[email or web address]@ Brock Groves MD 11/07/24 Room/bed info not found Consultation No ref. provider found No chief complaint on file. History of Present Illness Mr. Enoc Armando is a 78-year-old male referred to our [...] of breath he was referred to Dr. Small who subsequently sent him for a cardiac [...] admission to [facility] for hypertensive emergency and acute flash pulmonary edema. When Mr. Armando went to see Dr. Small, he was complaining of lower extremity weakness, [...] be sending this patient back to Dr. Small and Dr. Rodriguez to discuss the therapeutic approach for his multivessel coronary disease. Patient also needs evaluation by vascular surgery due to his coronary artery disease. Past Medical History: Diagnosis Date - Arthritis - CAD (coronary artery disease) - Carotid artery stenosis - CHF (congestive heart failure) ([facility]) - CKD (chronic kidney disease) stage 4, GFR 15-29 ml/min ([facility]) - Diabetes mellitus type 1 ([facility]) - Emphysema lung ([facility]) - Hypercholesterolemia - Hypertension - Kidney stone 2006 Lithotripsy - Normocytic anemia - PAD (peripheral artery disease) ([facility]) - Pneumonia - Polyneuropathy - Spinal stenosis, lumbar - 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 - Tobacco abuse Past Surgical History: Procedure Laterality Date - CATARACT EXT/ECCE Bilateral 12/2012,07/2014 - MN CATH PLLA L HRT & ARTS W/NJX & ANGIO IMG S&I N/A 10/27/2024 Procedure: Coronary Angiogram; Surgeon: Elías Rodriguez MD; Location: [facility] LONG DISTANCE OPERATOR; Service: Cardiovascular - MN CATH PLLA L HRT & ARTS W/NJX & ANGIO IMG S&I N/A 10/27/2024 Procedure: Left Heart Cath; Surgeon: Elías Rodriguez MD; Location: [facility] LONG DISTANCE OPERATOR; Service: Cardiovascular - SKIN CANCER EXCISION 09/2021 [...] 3 - insulin g (more content not included)...[facility]01-07-2025 History of Present illness Narrative* Brock Groves MD - 11/07/2024 10:36 AM EST Enoc Armando [id number] @[email or web address]@ Brock Groves MD 11/07/24 Room/bed info not found Consultation No ref. provider found No chief complaint on file. History of Present Illness Mr. Enoc Armando is a 78-year-old male referred to our serviceafter his cardiac cath performed by Dr. Rodriguez. The cardiac cath revealed 40% ostial left main, 85% mid LAD, 80% mid right. The patient also have disease in the second diagonal. He has been complaining of shortness of breath and fatigue which has been getting worse. Because ofhis shortness of breath he was referred to Dr. Small who subsequently sent him for a cardiac cath. This patient have a long history of tobacco use for more than 30 years. The patient also reported aCOVID infection and pneumonia. His past medical history is remarkable for arthritis, coronary artery disease, CHF, chronic kidney disease, diabetes, emphysema, hypertension, hypercholesterolemia, peripheral vascular disease, spinal stenosis and other comorbidities as listed in past medical history.He underwent stress test which revealed an inferior wall motion motion abnormality and EF of 50%. He also had an acute exacerbation of right heart failure which required admission to [facility] for hypertensive emergency and acute flash pulmonary edema. When Mr. Armando went to see Dr. Small, he was complaining of lower extremity weakness, heaviness as well as bilateral arm weaknessand chest pressure. During this evaluation, patient does [...] be sending this patient back to Dr. Small and Dr. Rodriguez to discuss thetherapeutic approach for his multivessel coronary disease. 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 Tobacco abuse Past Surgical History: Procedure Laterality Date CATARACT EXT/ECCE Bilateral 12/2012,07/2014 MN CATH PLMT L HRT & ARTS W/NJX & ANGIO IMG S&I N/A 10/27/2024 Procedure: Coronary Angiogram; Surgeon: Elías Rodriguez MD; Location: [facility] LONG DISTANCE OPERATOR;Service: Cardiovascular MN CATH PLMT L HRT & ARTS W/NJX & ANGIO IMG S&I N/A 10/27/2024 Procedure: Left Heart Cath; Surgeon: Elías Rodriguez MD; Location: [facility] LONG DISTANCE OPERATOR; Service: Cardiovascular SKIN CANCER EXCISION 09/2021 L ear Current Outpatient Medications on File Prior to Visit Medication Sig Dispense Refill acetaminophen (Tylenol Arthritis Pain) 650 MG CR tablet Take 1 (one) tablet (650 mg total) by mouthevery 8 (eight) hours as needed for pain . 0 amLODIPine (NORVASC) 10 MG tablet Take 1 (one) tablet (10 mg total) by mouth daily . 90 tablet 3 aspirin 81 MG EC tablet Take 1 (one) tablet (81 mg total) by mouth daily . blood sugar diagnostic (Contour Next Test Strips) strips TEST BLOOD GLUCOSE FOUR TIMES DAILY E10.65. 150 strip 11 furosemide (LASIX) 40 MG [...] x 5/32 Ndle Use as directed 4x dailyDx code E10.65 . 400 each 4 predniSONE (DELTASONE) 20 MG tablet Take 1 (one) tablet (20 mg total) by mouth For 5 days . tamsulosin (FLOMAX) 0.4 mg capsule Take 1 (one) capsule (0.4 mg total) by mouth daily . 30 capsule 3 No current facility-administered medications on file prior to visit. Allergies Allergen Reactions Bhtmpkd-Jct-Abn Reductase Inhibitors Muscle cramps Family History Problem [...] Resource Strain: Low Risk (10/11/2023) Received from [facility], [facility] Overall Financial Resource Strain (CARDIA) Difficulty [...] Addressed This Visit None documented in this [id number] Progress note* Quick Note - Karthik Sandoval RN - 10/28/2024 2:53 PM EST Patient blood sugar at 1:27pm measured 288. Blood sugar at this time measured 321. [facility] ordered to give 8 units of lispro at this time and to instruct patient to recheck blood sugar in a couple hours at home. Patient IV removed and discharge education provided at this time. Patient understands and verbalizes he will check blood sugar when home and to follow medication regimen after discharge [id number] Miscellaneous Notes* Quick Note - Karthik Sandoval RN - 10/28/2024 2:53 PM EST Patient blood sugar at 1:27pm measured 288. Blood sugar at this time measured 321. [facility] ordered to give 8 units of lispro at this time and to instruct patient to recheck blood sugar in a couple hours at home. Patient IV removed and discharge education provided at this time. Patient understands and verbalizes he will check blood sugar when home and to follow medication regimen after discharge * Plan of Care - Karthik Sandoval RN - 10/28/2024 9:11 AM EST Problem: Actual or potential alteration in health Goal: Absence of healthcare acquired conditions Outcome: Partially Met Goal: Knowledge of Interdisciplinary Plan of Care Outcome: Partially Met Goal: Knowledge of Enviroment Outcome: Partially Met Problem: Pressure Injury, Risk of Goal: Absence of pressure injury Outcome: Partially Met * Quick Note - Julia Chan RN - 10/28/2024 8:05 AM EST Patient stands at edge of bed to void and request to go to restroom. Patient does not want bedrest orders that are in place at this time. Patient is anxious for dc to home but appreciative with provided care. Bed alarm occupational safety specialist light in reach. * Plan of Care - Julia Chan RN - 10/28/2024 1:49 AM EST Problem: Actual or potential alteration in health Goal: Absence of healthcare acquired conditions Outcome: Partially Met Goal: Knowledge of Interdisciplinary Plan of Care Outcome: Partially Met Goal: Knowledge of Enviroment Outcome: Partially Met Patient is on insulin drip, will continue to monitor glucose hourly until further orders. Insulin drip effective with lowering glucose. Will continue to monitor and report any concerns. * Quick Note - Julia Chan RN - 10/27/2024 11:11 PM EST Started insulin pump off of the most current glulose. Informed dr Silver that RT unsuccessful with 2 attempts for Glucose ABG that was requested per protocol with elevated glucose. Dr Silver states that abg not needed to start insulin drip since abg drawn earlier to start drip with current glucose. Insulin drip infusing and started at 6.6 units/hr. * Quick Note - Julia Chan RN - 10/27/2024 10:51 PM EST Arrived to intermediate unit. Reviewed labs and orders. Blood sugar elevated to high to read via glucometer. RT notified for needed Glucose via ABG. Will start ordered insulin drip as soon as resultsavailable. Patient is alert and oriented. Patient discussed having heart cath as planned earlier today with possible need for open heart. Two Ice chips provided as requested. NPO status excluding ice chips and sips with meds * John Note - Julia Chan RN - 10/27/2024 10:18 PM EST This RN received report from observation unit nurse via phone. * Plan of Care - Carlita Roth RN - 10/27/2024 9:42 PM EST Problem: Actual or potential alteration in health Goal: Absence of healthcare acquired conditions Outcome: Partially Met Goal: Knowledge of Interdisciplinary Plan of Care Outcome: Partially Met Goal: Knowledge of Enviroment Outcome: Partially Met * Quick Note - Zoila Pollard PA-C - 10/27/2024 2:00 PM EST Consultation for possible surgical revascularization of the [...] Admitting hospitalist notified. Patient currently is receiving IVfluids for known stage IV kidney disease, BUN/creatinine: 92/2.60 respectively. * Quick Note - Mary Willis RN - 10/27/2024 12:[address] Rodriguez notified and at bedside to speak to patient r/g Critical potasium and elevated glucose. documented in this [id number] NoteS DISCHARGE SUMMARY -- [facility] Enoc Armando Admitted: 10/27/2024 Discharge Date: 10/28/24 PCP Handoff Recommended Outpatient Testing none Results Pending At Discharge none Clinical Summary Enoc Armando is a 78 y.o. male patient of Ryley Jeter MD with history of coronary artery disease, type 1 diabetes, diastolic CHF, hypertension dyslipidemia COPD and lumbar spinal stenosis with chronic low back pain presented to [facility] on 10/27/2024 for an elective left heart [...] . Physician(s) Follow Up: Brock Groves MD [address] [place] [id number] Follow up on 11/07/2024 Consultation for surgivcal revascularization of the heart with Dr. Groves on 11/07/24 at 10:00 am. Third Floor Medical Office Building Condition at Discharge: Stable Disposition: Home I reviewed discharge recommendations with the patient in person. Patient instructions, including activity, were given to the patient/family at discharge. On day of discharge I saw Enoc Armando and spent: > 30 minutes on discharge. Completed by: Nidia Garay MD on 10/28/24, 2:16 PM AUTHENTICATED BY NIDIA GARAY, ON 10/28/2024 14:19:[address] [place] [address] 10-28-2024 Hospital course Narrative* Nidia Garay MD - 10/28/2024 2:16 PM EST [facility] DISCHARGE SUMMARY -- [facility] Enoc Armando Admitted: 10/27/2024 Discharge Date: 10/28/24 PCP Handoff Recommended Outpatient Testing none Results Pending At Discharge none Clinical Summary Enoc Armando is a 78 y.o. male patient of Ryley Jeter MD with history of coronary artery disease, type 1 diabetes, diastolic CHF, hypertension dyslipidemia COPD and lumbar spinal stenosis withchronic low back pain presented to [facility] on 10/27/2024 for an elective left heart cathfollowing which patient was noted to have hyperglycemia [...] patient can be discharged from their standpoint andhe has followup on Nov [address] [...] . Physician(s) Follow Up: Brock Groves MD [address] [place] [id number] Follow up on 11/07/2024 Consultation for surgivcal revascularization of the heart with Dr. Groves on 11/07/24 at 10:00 am. Third Floor Medical Office Building Condition at Discharge: Stable Disposition: Home I reviewed discharge recommendations with the patient in person. Patient instructions, including activity, were given to the patient/family at discharge. On day of discharge I saw Enoc Armando and spent: > 30 minutes on discharge. Completed by: Nidia Garay MD on 10/28/24, 2:16 PM documented in this [id number] NoteDaily Progress Note Assessment/Plan: Principal Problem: Hyperglycemia Active [...] hospitalist, Dr. Chaim Garay.. AUTHENTICATED BY ZOILA POLLARD, ON 10/28/2024 14:16:[address] [place] [address] 10-28-2024 History of Present illness Narrative* Zoila Pollard PA-C - 10/28/2024 2:06 PM EST Daily Progress Note Assessment/Plan: Principal Problem: Hyperglycemia [...] CT surgery on November 07, 2024 at 10:00AM with Dr. Simone Groves... Objective: Vital signs [...] today, Discussed with hospitalist, Dr. Chaim Garay.. * Nidia Garay MD - 10/28/2024 11:36 AM EST [facility] PROGRESS NOTE Assessment and Plan Enoc Armando is a 78 y.o. male patient of Ryley Jeter MD with history of coronary artery disease, type 1 diabetes, diastolic CHF, hypertension dyslipidemia COPD and lumbar spinal stenosis withchronic low back pain presented to [facility] on 10/27/2024 for an elective left heart cathfollowing which patient was noted to have hyperglycemia [...] home Quality Measures DVT Prophylaxis: heparin subcutaneous Osborne Catheter: absent Code Status full Primary Contact Information Subjective Patient denies chest pain overnight. Blood glucose is better controlled and wants to eat this morning. He really wants to go home but I did tell him that we are doing surgery evaluation and will haveto confirm with them. Objective BP (!) 153/51 [...] normal mood and affect documented in this [id number] NoteHMS PROGRESS NOTE Assessment and Plan Enoc Armando is a 78 y.o. male patient of Ryley Jeter MD with history of coronary artery disease, type 1 diabetes, diastolic CHF, hypertension dyslipidemia COPD and lumbar spinal stenosis with chronic low back pain presented to [facility] on 10/27/2024 for an elective left heart [...] home Quality Measures DVT Prophylaxis: heparin subcutaneous Osborne Catheter: absent Code Status full Primary Contact [...] normal mood and affect AUTHENTICATED BY NIDIA GARAY, ON 10/28/2024 11:43:[address] [place] [address] 10-28-2024 Plan of care note* Plan of Care - Karthik Sandoval RN - 10/28/2024 9:11 AM EST Problem: Actual or potential alteration in health Goal: Absence of healthcare acquired conditions Outcome: Partially Met Goal: Knowledge of Interdisciplinary Plan of Care Outcome: Partially Met Goal: Knowledge of Enviroment Outcome: Partially Met Problem: Pressure Injury, Risk of Goal: Absence of pressure injury Outcome: Partially Met [id number] Progress note* Quick Note - Julia Chan RN - 10/28/2024 8:05 AM EST Patient stands at edge of bed to void and request to go to restroom. Patient does not want bedrest orders that are in place at this time. Patient is anxious for dc to home but appreciative with provided care. Bed alarm occupational safety specialist light in reach. [id number] Plan of care note* Plan of Care - Julia Chan RN - 10/28/2024 1:49 AM EST Problem: Actual or potential alteration in health Goal: Absence of healthcare acquired conditions Outcome: Partially Met Goal: Knowledge of Interdisciplinary Plan of Care Outcome: Partially Met Goal: Knowledge of Enviroment Outcome: Partially Met Patient is on insulin drip, will continue to monitor glucose hourly until further orders. Insulin drip effective with lowering glucose. Will continue to monitor and report any concerns. [id number] Progress note* Quick Note - Julia Chan RN - 10/27/2024 11:11 PM EST Started insulin pump off of the most current glulose. Informed dr Silver that RT unsuccessful with 2 attempts for Glucose ABG that was requested per protocol with elevated glucose. Dr Silver states that abg not needed to start insulin drip since abg drawn earlier to start drip with current glucose. Insulin drip infusing and started at 6.6 units/hr. [id number] Progress note* Quick Note - Julia Chan RN - 10/27/2024 10:51 PM EST Arrived to intermediate unit. Reviewed labs and orders. Blood sugar elevated to high to read via glucometer. RT notified for needed Glucose via ABG. Will start ordered insulin drip as soon as resultsavailable. Patient is alert and oriented. Patient discussed having heart cath as planned earlier today with possible need for open heart. Two Ice chips provided as requested. NPO status excluding ice chips and sips with meds [id number] Progress note* Quick Note - Julia Chan RN - 10/27/2024 10:18 PM EST This RN received report from observation unit nurse via phone. [id number] Plan of care note* Plan of Care - Carlita Roth RN - 10/27/2024 9:42 PM EST Problem: Actual or potential alteration in health Goal: Absence of healthcare acquired conditions Outcome: Partially Met Goal: Knowledge of Interdisciplinary Plan of Care Outcome: Partially Met Goal: Knowledge of Enviroment Outcome: Partially Met [id number] History and physical note* Cintia Benitez MD - 10/27/2024 8:26 PM EST [facility] HISTORY AND PHYSICAL -- [facility] Patient Name: Enoc Armando : 1945 MR #: [id number] Admit Date: 10/27/2024 Physicians: Ryley Jeter MD (Family); No ref. provider found (Referring) Enoc Armando is a 78 y.o. male patient of Ryley Jeter MD with history of coronary artery disease, type 1 diabetes, diastolic CHF, hypertension dyslipidemia COPD and lumbar spinal stenosis withchronic low back pain presented to [facility] on 10/27/2024 for an elective left heart cathfollowing which patient was noted to have hyperglycemia [...] 8 units before breakfast 9 units before lunchand 8 units before dinner Consult endocrinology History [...] ED no Quality Measures DVT Prophylaxis: SCDs Osborne Catheter: absent Medication Reconciliation: Verified Admitted with these risk variables:None. Please see assessment and plan for further details. Estimated Date of Discharge less than 2 midnights Code Status Full Code; code status verified on 10/27/2024 with patient (capacity intact) Chief Complaint hyperkalemia and hyperglycemia History of Present Illness Enoc Armando is a 78 y.o. male patient of Ryley Jeter MD with history of coronary artery disease, type 1 diabetes, diastolic CHF, hypertension dyslipidemia COPD and lumbar spinal stenosis with chronic low back pain presented to [facility] on 10/27/2024 for an elective left heart [...] Information I have reviewed the patient's allergies. Iyqbaca-mzj-lhd reductase inhibitors Home Medications Home medications were [...] normal coloration Psych: normal mood and affect [id number] NoteHMS HISTORY AND PHYSICAL -- [facility] Patient Name: Enoc Armando : 1945 MR #: [id number] Admit Date: 10/27/2024 Physicians: Ryley Jeter MD (Family); No ref. provider found (Referring) Enoc Armando is a 78 y.o. male patient of Ryley Jeter MD with history of coronary artery disease, type 1 diabetes, diastolic CHF, hypertension dyslipidemia COPD and lumbar spinal stenosis with chronic low back pain presented to [facility] on 10/27/2024 for an elective left heart [...] ED no Quality Measures DVT Prophylaxis: SCDs Osborne Catheter: absent Medication Reconciliation: Verified Admitted with these risk variables:None. Please see assessment and plan for further details. Estimated Date of Discharge less than 2 midnights Code Status Full Code; code status verified on 10/27/2024 with patient (capacity intact) Chief Complaint hyperkalemia and hyperglycemia History of Present Illness Enoc Armando is a 78 y.o. male patient of Ryley Jeter MD with history of coronary artery disease, type 1 diabetes, diastolic CHF, hypertension dyslipidemia COPD and lumbar spinal stenosis with chronic low back pain presented to [facility] on 10/27/2024 for an elective left heart [...] Information I have reviewed the patient's allergies. Rkbmmzq-qma-qii reductase inhibitors Home Medications Home medications were [...] Skin: normal coloration Psych: (more content not included)...[facility]12-27-2024 History and physical note* Cintia Benitez MD - 10/27/2024 8:26 PM EST [facility] HISTORY AND PHYSICAL -- [facility] Patient Name: Enoc Armando : 1945 MR #: [id number] Admit Date: 10/27/2024 Physicians: Ryley Jeter MD (Family); No ref. provider found (Referring) Enoc Aramndo is a 78 y.o. male patient of Ryley Jeter MD with history of coronary artery disease, type 1 diabetes, diastolic CHF, hypertension dyslipidemia COPD and lumbar spinal stenosis withchronic low back pain presented to [facility] on 10/27/2024 for an elective left heart cathfollowing which patient was noted to have hyperglycemia [...] 8 units before breakfast 9 units before lunchand 8 units before dinner Consult endocrinology History [...] ED no Quality Measures DVT Prophylaxis: SCDs Osborne Catheter: absent Medication Reconciliation: Verified Admitted with these risk variables:None. Please see assessment and plan for further details. Estimated Date of Discharge less than 2 midnights Code Status Full Code; code status verified on 10/27/2024 with patient (capacity intact) Chief Complaint hyperkalemia and hyperglycemia History of Present Illness Enoc Armando is a 78 y.o. male patient of Ryley Jeter MD with history of coronary artery disease, type 1 diabetes, diastolic CHF, hypertension dyslipidemia COPD and lumbar spinal stenosis with chronic low back pain presented to [facility] on 10/27/2024 for an elective left heart [...] Information I have reviewed the patient's allergies. Gninoxu-zmo-uih reductase inhibitors Home Medications Home medications were [...] normal coloration Psych: normal mood and affect * Elías Rodriguez MD - 10/27/2024 8:17 AM EST INTERVAL HISTORY AND PHYSICAL Patient Name: Enoc Armando Admit Date: 12261205 MR #: [id number] : 1945 The H&P has been reviewed [...] need for emergency surgery, need for pacemaker, AK, stroke, or cardiac arrest/. Patient voiced understanding and agreed to proceed. Sedation Plan: Moderate ASA Classification: ASA 3: A patient with severe systemic disease. Mallampati Score: Class III: Only the soft palate is visible Elías Rodriguez MD 10/27/2024 8:17 AM Source Note - Woo Small MD - 10/18/2024 1:20 PM EST General Cardiology New Patient Clinic Consult [facility], Heart & Vascular 10/18/2024 Woo Small MD [address] [place] [address] 3rd Floor Medical Office [facility] [address] Patient: Enoc Armando Date of : 1945 (78 y.o.) PCP: [...] concerns. Follow-up: No follow-ups on file. Woo Small MD, [facility] Non-Invasive Cardiology [facility] P:[phone] F:[phone] History of Present Illness: Enoc Armando is a 78 y.o. man with a past medical history of insulin-dependent diabetes for 30 years, history of tobacco use, recent COVID infection with systolic dysfunction ejection fraction ranging from 35 to 45% who presented [facility]. He underwent stress testing which showedinferior wall abnormality as well as ejection fraction of 50%. I initially met with him back in January and he was doing quite well, however today he presents with progressive symptoms of fatigue, malaise, and a recent heart failure exacerbation at [facility] for hypertensive emergency and acute flash pulmonary [...] was prescribed Imdur as a temporizing measure andthat has seemed to have helped. Objective Review [...] Cigarettes Smokeless Tobacco Never Allergies: Prednisone and Wlqobno-lok-ygi reductase inhibitors All of the information has [...] (one) tablet (30 mg total) by mouth daily., Disp: 30 tablet, Rfl: 0 lisinopriL (PRINIVIL,ZESTRIL) 5 MG tablet, Take 1 (one) tablet (5 mg total) by mouth daily ., Disp:, Rfl: metoprolol succinate (TOPROL-XL) 25 MG 24 [...] 50%, rest LVEF 51%. Echocardiogram reviewed from [facility], 10/11/2023 moderately decreased ejection fraction estimated at [...] history suggesting prior/existing ASCVD documented in this [id number] Progress note* Quick Note - Zoila Pollard PA-C - 10/27/2024 2:00 PM EST Consultation for possible surgical revascularization of the heart received from cardiology, Dr. Estefany Rodriugez. Preoperative diagnostic studies currently in progress. In [...] Admitting hospitalist notified. Patient currently is receiving IVfluids for known stage IV kidney disease, BUN/creatinine: 92/2.60 respectively. [id number] Progress note* Quick Note - Mary Willis RN - 10/27/2024 12:[address] Rodriguez notified and at bedside to speak to patient r/g Critical potasium and elevated glucose. [id number] Attending History and physical note* Elías Rodriguez MD - 10/27/2024 8:17 AM EST INTERVAL HISTORY AND PHYSICAL Patient Name: Enoc Armando Admit Date: 12261205 [id number] 1945 The H&P has been reviewed [...] need for emergency surgery, need for pacemaker, AK, stroke, or cardiac arrest/. Patient voiced understanding and agreed to proceed. Sedation Plan: Moderate ASA Classification: ASA 3: A patient with severe systemic disease. Mallampati Score: Class III: Only the soft palate is visible Elías Rodriguez MD 10/27/2024 8:17 AM Source Note - Woo Small MD - 10/18/2024 1:20 PM EST General Cardiology New Patient Clinic Consult [facility], Heart & Vascular 10/18/2024 Woo Small MD [address] [place] [address] 3rd Floor Medical Office [facility] [address] Patient: Enoc Armando Date of : 1945 (78 y.o.) PCP: [...] concerns. Follow-up: No follow-ups on file. Woo Small MD, [facility] Non-Invasive Cardiology [facility] P:[phone] F:[phone] History of Present Illness: Enoc Armando is a 78 y.o. man with a past medical history of insulin-dependent diabetes for 30 years, history of tobacco use, recent COVID infection with systolic dysfunction ejection fraction ranging from 35 to 45% who presented initially to [facility]. He underwent stress testing which showedinferior wall abnormality as well as ejection fraction of 50%. I initially met with him back in January and he was doing quite well, however today he presents with progressive symptoms of fatigue, malaise, and a recent heart failure exacerbation at [facility] for hypertensive emergency and acute flash pulmonary [...] was prescribed Imdur as a temporizing measure andthat has seemed to have helped. Objective Review [...] Cigarettes Smokeless Tobacco Never Allergies: Prednisone and Crgmrlh-svu-cmd reductase inhibitors All of the information has [...] (one) tablet (30 mg total) by mouth daily., Disp: 30 tablet, Rfl: 0 lisinopriL (PRINIVIL,ZESTRIL) 5 MG tablet, Take 1 (one) tablet (5 mg total) by mouth daily ., Disp:, Rfl: metoprolol succinate (TOPROL-XL) 25 MG 24 [...] 50%, rest LVEF 51%. Echocardiogram reviewed from [facility], 10/11/2023 moderately decreased ejection fraction estimated at [...] has a medical history suggesting prior/existing ASCVD [facility] Work Phone: [phone]) 282-198312-27-2024 Hospital Discharge instructions* Discharge Instructions* Sonya King RN - 10/27/2024 8:16 AM EST [facility] Post Cardiac Catheterization Discharge Instructions Site Care Leave Bandage in place the night of your catheterization. Watch for any bleeding or oozing from thesite. If this occurs, lie flat and place direct pressure on the bandage for 20 minutes. If bleedingreoccurs call [facility]. For groins, remove your bandage the following morning and apply a Band-Aid over the site, so it hasa complete seal over the area. This is to be done for 5 days with a new Band-Aid each time. Soreness and bruising are to expected. For wrist and arms, remove your bandage the following morning and apply a Band- Aid over the site, so it has a complete seal over the area. This is to be done for 5 days with a new Band-Aid each time.Soreness and bruising are to be expected. Do not submerge catheterization site in water for 5 to 7 days following the procedure. Examples include bathing, swimming, sitting in a Jacuzzi or dishwashing. You may shower 24 hours after the procedure. Call [facility] at [phone] if you notice any of the following: [...] need of prescription assistance, please notify the [facility] nurse or call the office. If you were prescribed Plavix (clopidogrel), Effient (prasugrel), or Brilinta (ticagrelar) after your procedure, DO NOT STOP taking this medication unless told to do so by your [facility] baseball club manager. Follow up appointments, tests or procedures will be on your discharge paperwork under What's next. Please call [facility] at [phone] to reschedule any appointments if needed or if you have any questions or concerns. Thank you! documented in this [id number] Instructions* Patient Instructions* Luisa Easley RN - 10/18/2024 1:27 PM EST How to Contact your Care Team: Provider: Dr. Woo Small MD Clinic Nurse: Luisa Vega RN Clinic MA: Ej Guidry MA REFILLS: When in need for refills please call your care team or the office at [phone]. Please include medication name, pharmacy name, and specify 30-day or 90-day supply. Please check with your pharmacy within 24 hours of request for your refill. You must follow up as directed to continue current refills. Thank you! Heart Catheterization Date of your procedure: 10/27/2024 at 8:00am Please arrive at [facility]. Please park in the garage next to the medical office building. If needed, venue manager parking is available at the front [...] Plavix (clopidigrel), Effient (prasugrel), or Brilinta (ticagrelor), pleasebe sure to take your medication, along with [...] questions or concerns please contact us at [phone]. documented in this [id number] History of Present illness Narrative* Woo Small MD - 10/18/2024 1:20 PM EST General Cardiology New Patient Clinic Consult [facility] Heart & Vascular 10/18/2024 Woo Small MD [address] [place] [address], 3rd Floor Medical Office [facility] [address] Patient: Enoc Armando Date of : 1945 (78 y.o.) PCP: [...] concerns. Follow-up: No follow-ups on file. Woo Small MD, [facility] Non-Invasive Cardiology [facility] P:[phone] F:[phone] History of Present Illness: Enoc Armando is a 78 y.o. man with a past medical history of insulin-dependent diabetes for 30 years, history of tobacco use, recent COVID infection with systolic dysfunction ejection fraction ranging from 35 to 45% who presented initially to [facility]. He underwent stress testing which showedinferior wall abnormality as well as ejection fraction of 50%. I initially met with him back in January and he was doing quite well, however today he presents with progressive symptoms of fatigue, malaise, and a recent heart failure exacerbation at [facility] for hypertensive emergency and acute flash pulmonary [...] was prescribed Imdur as a temporizing measure andthat has seemed to have helped. Objective Review [...] Cigarettes Smokeless Tobacco Never Allergies: Prednisone and Bxjaueq-svv-opr reductase inhibitors All of the information has [...] (one) tablet (30 mg total) by mouth daily., Disp: 30 tablet, Rfl: 0 lisinopriL (PRINIVIL,ZESTRIL) 5 MG tablet, Take 1 (one) tablet (5 mg total) by mouth daily ., Disp:, Rfl: metoprolol succinate (TOPROL-XL) 25 MG 24 [...] 50%, rest LVEF 51%. Echocardiogram reviewed from [facility], 10/11/2023 moderately decreased ejection fraction estimated at [...] history suggesting prior/existing ASCVD documented in this [id number] NoteGeneral Cardiology New Patient Clinic Consult [facility] Heart & Vascular 10/18/2024 Woo Small MD [address] [place] [address], 3rd Floor Medical Office [place] [phone] Patient: Enoc Armando Date of : 1945 (78 y.o.) PCP: [...] concerns. Follow-up: No follow-ups on file. Woo Small MD, [facility] Non-Invasive Cardiology [facility] P:[phone] F:[phone] History of Present Illness: Enoc Armando is a 78 y.o. man with a past medical history of insulin-dependent diabetes for 30 years, history of tobacco use, recent COVID infection with systolic dysfunction ejection fraction ranging from 35 to 45% who presented initially to [facility]. He underwent stress testing which showed inferior wall abnormality as well as ejection fraction of 50%. I initially met with him back in January and he was doing quite well, however today he presents with progressive symptoms of fatigue, malaise, and a recent heart failure exacerbation at [facility] for hypertensive emergency and acute flash pulmonary [...] Cigarettes Smokeless Tobacco Never Allergies: Prednisone and Tseyyed-twm-vbk reductase inhibitors All of the information has [...] 90 tablet, Rfl: 3 OXYGEN-AIR DELIVERY SYSTEMS [facility], Inhale 2 L/min See Admin Instructions ., Disp: , Rfl: tamsulosin (FLOMAX) 0.4 mg capsule, Take 1 ( (more content not included)...[facility] [id number] Telephone encounter Note* Telephone Encounter - Luisa Easley RN - 10/06/2024 2:45 PM EST Spoke with pt and reviewed Dr. Small's comments and suggestions. Pt was agreeable to starting Imdur 30mg daily and confirmed appt with Dr. Small on 10/18 at 1:20pm in the [place] location. Pt expressedappreciation and understanding. [id number] Telephone encounter Note* Telephone Encounter - Luisa Easley RN - 10/06/2024 2:45 PM EST ----- Message from Yadira Small sent at 10/05/2024 4:33 PM EST ----- [...] was somewhat abnormal, though nothing really specific whichagain is usually a sign of multivessel coronary disease. 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 Small's comments and suggestions. Pt was agreeable to starting Imdur 30mg daily and confirmed appt with Dr. Small on 10/18 at 1:20pm in the [place] location. Pt expressedappreciation and understanding. * Telephone Encounter - Luisa Easley RN - 10/06/2024 2:45 PM EST ----- Message from Yadira Small sent at 10/05/2024 4:33 PM EST ----- [...] was somewhat abnormal, though nothing really specific whichagain is usually a sign of multivessel coronary disease. 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 No swelling Off of Lasix Patient ID: Enoc Armando is a 78 y.o. male who presents [...] DO 08/29/24 1:12 PM documented in this [facility] Work Phone: [phone] NotePatient ID: Enoc Armando is a 78 y.o. male Subjective: HPI: Enoc Armando presents for follow-up of Type 1 diabetes The initial diagnosis of diabetes was made 28 years ago in 1994. Disease course has been stable. Mr. Armando is a 78 y.o. male patient who [...] High flow O2, C-pap, etc. Hospitalized in [facility] with CHF, pleural effusions and elevated troponin. [...] being taken. Patient does not see a chief of party. Eye exam is current. Currently taking: No [...] Neurological: Mental Status: He (more content not included)...[facility]09-20-2024 History of Present illness Narrative* Paty Ortega, [facility] - 07/21/2024 1:58 PM EDT Images from the original note were not included. Patient ID: Enoc Armando is a 78 y.o. male Subjective: HPI: Enoc Armando presents for follow-up of Type 1 diabetes The initial diagnosis of diabetes was made28 years ago in 1994. Disease course has been stable. Mr. Armando is a 78 y.o. male patient who presents the office for a follow-up of his type1 diabetes. Patient's most recent hemoglobin A1c is 7.9%. Patient reports that he does follow a diabetic diet. His weight stable from his last visit with us. Complications from his diabetes includes neuropathy. He denies nephropathy or retinopathy. Hospitalized with COVID-19 in November 2023, had difficulty breathing, ICU stay requiring High flow O2, C-pap, etc. Hospitalized in [facility] with CHF, pleural effusions and elevated troponin. [...] being taken. Patient does not see a chief of party. Eye exam is current. Currently taking: No [...] surgicalhistory and problem list. Objective: BP (!) 176/69 [...] diabetes Patient is currently managed with: Humaloginsulin: 8-10 units at breakfast; 8-10 units at lunch; 8-10 units at supper; Lantus insulin: 14-15 units at bedtime . Most recent Hgb A1c is 7.9%. Reports occasional lows in the early AM and during the day. States if he is low in early AM, he often has visual blurring and his assists him with j uice or other carb source. Typically eats a snack if BG <150 at HS. 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 Had bilat cataract extraction Dr. Lopez. Sees Dr. Browne in [place] every year routinely.Has blurred vision with low [...] feel that he needs further neurologic evaluation atthis time. Reports falling in the bathtub summer [...] good. Efforts to improve compliance (if necessary) willbe directed at dietary modifications: Limit portion sizes, increased exercise and regular blood sugar monitorin times daily. 4. Follow up: 4-5 months 5. Record blood sugar readings as instructed. Call if BG consistently <70 or >250. [phone] Continue to check blood sugar 3 times daily. Patient has been checking blood glucoses 3 times daily for the past 90 days. His insurance will notcover 4 checks per day he reports. Patient [...] CNP 07/21/24 1:21 PM documented in this [id number] Instructions* Patient Instructions* Luisa Easley RN - 04/24/2024 10:08 AM EDT How to Contact your Care Team: Provider: Dr. Woo Small MD Clinic Nurse: Luisa Easley RN Clinic MA: Ej Guidry MA REFILLS: When in need for refills please call your care team or the office at [phone]. Please include medication name, pharmacy name, and specify 30-day or 90-day supply. Please check with your pharmacy within 24 hours of request for your refill. You must follow up as directed to continue current refills. Thank you! documented in this [id number] History of Present illness Narrative* Woo Small MD - 04/24/2024 9:40 AM EDT General Cardiology New Patient Clinic Consult [facility]ascular 04/24/2024 Woo Small MD [address] [place] [phone] Patient: Enoc Armando Date of : 1945 (78 y.o.) PCP: [...] in about 1 year (around 04/24/2025). Woo Small MD, [facility] Non-Invasive Cardiology [facility] P:[phone] F:[phone] History of Present Illness: Enoc Armando is a 78 y.o. man with a past medical history of insulin-dependent diabetes for 30 years, history of tobacco use, recent COVID infection with systolic dysfunction ejection fraction ranging from 35 to 45% who presented initially to [facility]. He underwent stress testing which showedno definite ischemia as well as resolution of [...] Cigarettes Smokeless Tobacco Never Allergies: Prednisone and Diqdztq-txz-vfa reductase inhibitors All of the information has [...] as directed 8 units before breakfast, 9 unitsbefore lunch, 8 units before dinner NOW IS ADMELOG PER INSURANCE .), Disp: 15 mL, Rfl: 11 lisinopriL (PRINIVIL,ZESTRIL) 5 MG tablet, Take 1 (one) tablet (5 mg total) by mouth daily ., Disp:, Rfl: metoprolol succinate (TOPROL-XL) 25 MG 24 hr tablet, Take 1 (one) tablet (25 mg total) by mouth daily ., Disp: 90 tablet, Rfl: 3 OXYGEN-AIR DELIVERY SYSTEMS [facility], Inhale 2 L/min See Admin Instructions ., [...] 50%, rest LVEF 51%. Echocardiogram reviewed from [facility], 10/11/2023 moderately decreased ejection fraction estimated at 35% with global hypokinesis. Echocardiogram states the valves were not well-visualized, calculated ejection fraction was noted to be 45% EKG noted sinus tachycardia, concern for anterior infarction Carotid arterial duplex 2023 Conclusions * Right. * Less than 50% [...] to 77 The patient has a prior AK or stroke diagnosis documented in this [id number] NoteGeneral Cardiology New Patient Clinic Consult [facility] 04/24/2024 Woo Small MD [address] [place] [phone] Patient: Enoc Armando Date of : 1945 (78 y.o.) PCP: [...] in about 1 year (around 04/24/2025). Woo Small MD, [facility] Non-Invasive Cardiology [facility] P:[phone] F:[phone] History of Present Illness: Enoc Armando is a 78 y.o. man with a past medical history of insulin-dependent diabetes for 30 years, history of tobacco use, recent COVID infection with systolic dysfunction ejection fraction ranging from 35 to 45% who presented initially to establish care. He underwent stress testing which showed [...] Cigarettes Smokeless Tobacco Never Allergies: Prednisone and Wqksyvi-kwu-sub reductase inhibitors All of the information has [...] (Patient taking differently: T (more content not included)...[facility]05-28-2024 Telephone encounter Note* Telephone Encounter - Ej Guidry MA - 03/28/2024 1:53 PM EDT Pt was last seen on 01/14/24 by Aylin Lacy CNP. Refills appropriate. Routing to Dr. Garay as Dr. Small is out of the office. [id number] Miscellaneous Notes* Telephone Encounter - Ej Guidry MA - 03/28/2024 1:53 PM EDT Pt was last seen on 01/14/24 by Aylin Lacy CNP. Refills appropriate. Routing to Dr. Garay as Dr. Small is out of the office. documented in this [id number] Evaluation + Plan note* Assessment & Plan Note - CULLEN Guzmán DNP - 02/24/2024 2:39 PM EDT Associated Problem(s): CKD (chronic kidney disease) Creatinine is stable at 1.92 and stable, stage IIIb, blood pressure is well controlled, diabetes well controlled, not using NSAIDs. [facility] Work Phone: 1(243) 903-818004-25-2024 Miscellaneous Notes* Assessment & Plan Note - CULLEN Guzmán DNP - 02/24/2024 2:39 PM EDTAssociated Problem(s): CKD (chronic kidney disease) Creatinine is stable at 1.92 and stable, stage IIIb, blood pressure is well controlled, diabetes well controlled, not using NSAIDs. * Assessment & Plan Note - CULLEN Guzmán DNP - 02/24/2024 2:38 PM EDT Associated Problem(s): Type 1 diabetes mellitus with diabetic neuropathy (Multi) Follows with endocrinology, is not to use SGLT2 due to Type I diabetes * Assessment & Plan Note - CULLEN Guzmán DNP - 02/24/2024 2:38 PM EDT Associated Problem(s): Essential hypertension BP is well controlled on lisinopril and metoprolol, no changes documented in this [facility] Work Phone: 1(585) 591-831704-25-2024 Evaluation + Plan note* Assessment & Plan Note - CULLEN Guzmán DNP - 02/24/2024 2:38 PM EDTAssociated Problem(s): Type 1 diabetes mellitus with diabetic neuropathy (Multi) Follows with endocrinology, is not to use SGLT2 due to Type I diabetes [facility] Work Phone: 1(618) 868-570604-25-2024 Evaluation + Plan note* Assessment & Plan Note - CULLEN Guzmán DNP - 02/24/2024 2:38 PM EDTAssociated Problem(s): Essential hypertension BP is well controlled on lisinopril and metoprolol, no changes [facility] Work Phone: 1(162) 407-877204-25-2024 History of Present illness Narrative* CULLEN Guzmán DNP - 02/24/2024 1:45 PM EDT Subjective Patient ID: Enoc Armando is a 78 y.o. male who presents [...] 35% Global hypokinesia of the left ventricle CULLEN Guzmán DNP 02/24/24 1:50 PM documented in this [facility] Work Phone: 1(689) 531-752804-19-2024 History of Present illness Narrative* Paty Ortega CNP - 02/18/2024 1:07 PM EDT Images from the original note were not included. Patient ID: Enoc Armando is a 78 y.o. male Subjective: HPI: Enoc Armando presents for follow-up of Type 1 diabetes The initial diagnosis of diabetes was made28 years ago in 1994. Disease course has been stable. Mr. Armando is a 78 y.o. male patient who presents the office for a follow-up of his type1 diabetes. Patient's most recent hemoglobin A1c is 7.5%. Patient reports that he does follow a diabetic diet. His weight stable from his last visit with us. Complications from his diabetes includes neuropathy. He denies nephropathy or retinopathy. Hospitalized with COVID-19 in November 2023, had difficulty breathing, ICU stay requiring High flow O2, C-pap, etc. Hospitalized in [facility] with CHF, pleural effusions and elevated troponin. [...] being taken. Patient does not see a chief of party. Eye exam is current. Currently taking: No [...] as directed 8 units before breakfast, 9 unitsbefore lunch, 8 units before dinner NOW IS ADMELOG PER INSURANCE .) lisinopriL (PRINIVIL,ZESTRIL) 5 MG tablet, Take 1 (one) tablet (5 mg total) by mouth daily . metoprolol succinate (TOPROL-XL) 25 MG 24 hr tablet, Take 1 (one) tablet (25 mg total) by mouth daily . OXYGEN-AIR DELIVERY SYSTEMS M[facility], Inhale 2 L/min See Admin Instructions . [...] past surgicalhistory and problem list. Objective: BP 131/79 Pulse [...] 1 diabetes, under good control Enoc Ariela Armando presents for follow-up of Type 1 diabetes Patient is currently managed with: Humaloginsulin: 8-10 units at breakfast; 8-10 units at [...] if BG <150 at HS. 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 Had bilat cataract extraction Dr. Lopez. Sees Dr. Browne in [place] every year routinely.Has blurred vision with low [...] on Flomax; PSA elevated on labs 8.8.. He was referred to Dr. Melendez in [...] feel that he needs further neurologic evaluation atthis time. Reports falling in the bathtub summer [...] like to maintain admelog and consider fiasp inthe future. 2. Education: Reviewed ABCs of diabetes management (respective goals in parentheses): A1C (7.0-8.0), blood pressure (<130/80), and cholesterol (LDL <100). 3. Compliance at present is estimated to be good. Efforts to improve compliance (if necessary) willbe directed at dietary modifications: Limit portion sizes, increased exercise and regular blood sugar monitorin times daily. 4. Follow up: 4-5 months 5. Record blood sugar readings as instructed. Call if BG consistently <70 or >250. [phone] Continue to check blood sugar 3 times daily. Patient has been checking blood glucoses 3 times daily for the past 90 days. His insurance will notcover 4 checks per day he reports. Patient [...] CNP 02/18/24 1:21 PM documented in this [id number] Instructions* Patient Instructions* Robert Dominguez RN - 01/14/2024 11:46 AM EDT How to Contact your Care Team: Provider: Dr. Woo Small MD Clinic Nurse: Luisa Easley RN REFILLS: When in need for refills please call your care team or the office at [phone]. Please include medication name, pharmacy name, and specify 30-day or 90-day supply. Please check with your pharmacy within 24 hours of request for your refill. You must follow up as directed to continue current refills. Thank you! 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 Small PCP: Ryley Jeter MD Chief Complaint: Transitional care appointment Date of Service: 01/14/2024 Assessment and Plan: Systolic dysfunction with recovery of ejection fraction -Euvolemic on exam -Continue lisinopril 5 mg daily -Continue metoprolol succinate 25 mg daily -Continue Lasix 20 mg twice daily -He is following with nephrology in [place]. He has an upcoming appointment and labs to be drawn. Creatinine slowly improving. We discussed getting labs today but patient deferred and states he will wait until his appointment with nephrology -Dr. Small elected not to start an SGLT2 inhibitor or an MRA as patient was not hydrating well, had apoor appetite, she was afraid of hypotension and dehydration with adding these agents at his last office visit -NM myocardial perfusion SPECT was ordered to rule out ischemia as the cause of his LV dysfunction.SPECT reviewed with Dr. Small, would recommend cath. We talked today in great detail regarding a cardiac catheterization procedure and Dr. Small's recommendations. Patient denies any complaints of chest [...] Next scheduled follow up. Aylin Lacy, MSN, DISHWASHER PREPARER, AGRICULTURE EXTENSION SPECIALIST-C, CORPORATE BANKING OFFICER, ECG- General Cardiology [facility] History of Present Illness: Enoc Armando is a 78 y.o. man with a past medical history of hypertension, hyperlipidemia, insulin-dependent diabetes mellitus, CKD, smoker, emphysema, chronic hypoxemia and systolic dysfunction. He presents today for transitional care appointment. He was last seen in our office on 10/21/2023 by his primary baseball club manager Dr. Small. Recent COVID infection at the end of last year and patient was notedto have systolic dysfunction with a ejection fraction ranging from 35 to 45%. He had left ventricular recovery noted on most recent echocardiogram from 11/30/2023, LVEF 63%. He presented to the [facility] on 11/27/2023 with complaints of respiratory distress. He wasseptic with pneumonia. Cardiology was consulted due to elevation in troponin levels. He was treatedmedically for his NSTEMI, plan was for follow-up [...] 25.50 Types: Cigarettes Smokeless Tobacco Never Allergies: Xlfqksm-bkv-jyo reductase inhibitors All of the above information [...] 15 mL, Rfl: 11 OXYGEN-AIR DELIVERY SYSTEMS [facility], Inhale 2 L/min See Admin Instructions ., [...] (5 mg total) by mouth daily ., Disp:, Rfl: metoprolol succinate (TOPROL-XL) 25 MG 24 [...] to 77 The patient has a prior AK or stroke diagnosis documented in this [id number] Telephone encounter Note* Telephone Encounter - Ej Guidry MA - 12/29/2023 10:31 AM EST Pt's called in asking if pt needs to continue the lasix from hospitla if so he needs a refill.Per the note on 12/01/23 per Ellie Aguilar CNP: IV Lasix 20 mg BID, can transition to orals on discharge. Pt has an appt on 01-14-24 with Aylin HUDSON. Pended medication to Dr. Small for her to sign. [id number] Miscellaneous Notes* Telephone Encounter - Ej Guidry MA - 12/29/2023 10:31 AM EST Pt's called in asking if pt needs to continue the lasix from hospitla if so he needs a refill.Per the note on 12/01/23 per Ellie Aguilar CNP: IV Lasix 20 mg BID, can transition to orals on discharge. Pt has an appt on 01-14-24 with Aylin HUDSON. Pended medication to Dr. Small for her to sign. documented in this [id number] Miscellaneous Notes* Quick Note - Ellie Aguilar CNP - 12/01/2023 11:20 AM EST [id number] ENCOUNTER FOR HOME MEDICAL EQUIPMENT PATIENT: Enoc Armando : 1945 Statement of Care: I certify that Enoc Armando is under my care and that I, a Nurse Practitioner, Physician's Equity Trader, or Resident working with me, had a morp-oe-pzhb encounter with this patient yesterday to evaluate and discuss the need for home medical equipment. I certify that based on the findings of this evaluation, which included but was not limited to the auvt-mt-sllg requirements, the following home medical equipment is medically necessary: Rollator forthe treatment of mobility limitations to enable participation in mobility-related activities of daily living (MRADL) in the home. Based on the current evaluation, patient can safely use prescribed equipment to perform mobility-related activities of daily living (MRADL) in the home.. Signed by: Ellie Aguilar CNP on 12/01/2023 * Plan of Care - Blanco Olivera RN - 12/01/2023 5:25 AM EST Problem: Actual or potential alteration in health [...] of comfort function goal Outcome: Partially Met * Quick Note - Nelia Flores RN - 11/30/2023 4:35 AM EST Patient requests to have his blood sugar checked, says that he feels sweaty this AM. Blood sugar 117. Snack provided. * Plan of Care - Nelia Flores RN - 11/29/2023 8:09 PM EST Problem: Actual or potential alteration in health [...] Knowledge of medication management Outcome: Partially Met * Sign Off Note - Davina Julien CNP - 11/29/2023 7:36 AM EST Patient no longer in ICU bed. On 2lpm NC. Critical care will sign off. * CDI Query - Cintia Benitez MD - 11/29/2023 6:23 AM EST Query 2 of 2 Noted 11/27 [facility] PMHx documentation of CKD Clinical Indicators: [...] 15 or dialysis ESRD Thank you, Aubree CRAWFORD,RN Clinical Documentation resource center teacher After business hours you may contact Ebony Anne at [phone] (Weekdays until 10 PM and weekends 8 AM -10 PM) * CDI Query - Cintia Benitez MD - 11/29/2023 6:14 AM EST Noted 11/27 [facility] documentation of heart failure. Clinical Indicators: 11/27 [facility]: CHF....-Continue IV Lasix, check I's and O's, Daily weights PE: Respiratory: lungs diminished CVS: peripheral edema absent PMHx: CHF, DM I, COPD: chronic hypoxemic respiratory failure, HTN, and HLD 11/27 Cardiology CS: chest x-ray in ER pulmonary vascular congestion small bilateral pleural edemas right lower lobe infiltrates LV dysfunction...Known systolic dysfunction echo in October showed ejection fraction 35% by reportwhich was global dysfunction 11/27 Pulmonology CS: Pattern of CHF Small Bilat effusions RLL opacity PE: Respiratory: crackles at base Test results: 11/27: BNP: 98568 Please specify the acuity and type of heart failure in the progress notes. For Example: Acute on chronic systolic CHF POA Chronic systolic CHF, no acute exacerbation Other (please specify) Thank you, Aubree CRAWFORD,RN Clinical Documentation Bituminous Distributor Operator After business hours you may contact Ebony Anne at [phone] (Weekdays until 10 PM and weekends 8 AM -10 PM) * Plan of Care - Sultana Baptiste RN - 11/29/2023 12:51 AM EST Problem: Actual or potential alteration in health [...] Knowledge of medication management Outcome: Partially Met * Plan of Care - Jose Rafael Gill RN - 11/28/2023 6:13 PM EST Problem: Cardiac Output - Decreased Goal: Cardiac output within specified parameters Outcome: Partially Met Problem: Serum Glucose Level - Abnormal Goal: Glucose level within specified parameters Outcome: Partially Met Problem: Plan for Discharge Goal: Knowledge of medication management Outcome: Partially Met * Plan of Care - Zelalem Lo RN - 11/28/2023 8:41 AM EST Problem: Actual or potential alteration in health Goal: Absence of healthcare acquired conditions Outcome: Met Goal: Knowledge of Interdisciplinary Plan of Care Outcome: Met Goal: Knowledge of Enviroment Outcome: Met Problem: Pressure Ulcer - Risk of Goal: Absence of pressure ulcer Outcome: Met * Quick Note - Zelalem Lo RN - 11/27/2023 10:[address] Vargas about orders regarding insulin gtt. No dextrose orders when BG reaches specified limit in his protocol. Waiting for new orders. Will continue to assess patient and treat accordingly. * Quick Note - Priscilla Aranda RD - 11/27/2023 8:11 AM EST Consult for DM education. Pt NPO and on bipap. Education not appropriate currently. Priscilla Aranda RDN, LD Dietitian's Office [phone] * John Note - Carlita Lazaro RRT - 11/27/2023 5:43 AM EST Critical Glucose from VBG reported to Norma Juanjo HUDSON * Quick Note - Julia Chan RN - 11/27/2023 4:51 AM EST Alice, provided with updates of transfer to room 3047 from 3039. Informed that patient is on BIPAP for respiratory deficits and on Heparin drip, treating high blood sugar. Appreciative withupdates and states will visit around 8 am. Denies further questions at this time. * eICU Progress Note - Tyler Mercado DO - 11/27/2023 4:43 AM EST THC Physician - Brief Progress Note PERMANENT 11/27/2023 04:43 [facility] CCU ENOC ARMANDOElizabet Date of Service 11/27/2023 04:43 HPI/Events of [...] test evaluation, Medication change / dose adjustment * Quick Note - Carlita Lazaro, OLIVIA - 11/27/2023 4:20 AM EST Called by RN due to patient SpO2 87% on 2L. RN states she increased to 4L and patient was 90%. Wentto patient room and patient was diaphoretic and with increased WOB with RR at 37. Patient placed onbipap and Norma Geiger RADIO ELECTRICIAN notified. Patient was then transferred to MICU * John Note - Julia Chan RN - 11/27/2023 3:59 AM EST Patient c/o SOB. Repositioned up in bed with Assist of psa. O2 increased from 2 LNC to 4 LNC. Called Karla delgado RT due to o2 sats 87- 90 % on 4 Lnc.and informed that patient c/o SOB. Karla RT immediately came to room and replaced on bipap. RADIO ELECTRICIAN came to see patient and request patient to be transfer to ICU due to obvious SOB. Patent transported to ICU on bipap while accompanied by Karla from RT and this RN. * Quick Note - Julia Chan RN - 11/27/2023 3:40 AM EST Patient resting calmly on o2 2 liters via nasal cannula. Request to be placed on bedpan and requesturinal. Nancy LANCASTER turned patient and placed patient on bedpan. * Quick Note - Carlita Lazaro RRT - 11/27/2023 3:33 AM EST Critical Glucose 493 from VBG reported to Norma Geiger CNP * Quick Note - Julia Chan RN - 11/27/2023 2:42 AM EST EMT TRANSPORTER SET HEPARIN DRIP ON Alaris pump at 8 ml per hr. * Quick Note - Julia Chan RN - 11/27/2023 2:31 AM EST Informed RT that patient has arrived from [facility]. Attempt to let dr Pereira aware of arrival from [facility] no answer will leave message. documented in this [id number] Hospital course Narrative* Ellie Aguilar CNP - 12/01/2023 11:03 AM EST [facility] DISCHARGE SUMMARY -- [facility] Enoc Armando Admitted: 11/27/2023 Discharge Date: 12/01/23 PCP Handoff Recommended Outpatient Testing None Results Pending At Discharge None Clinical Summary Enoc Armando is a 77 y.o. male patient of Ryley Jeter MD with history of HTN, HLD, DM Type I, CKD, COPD, chronic hypoxemic respiratory failure who presented to [facility] with respiratory distress . Severe Sepsis Present on admission: yes Etiology: Pneumonia SIRS criteria: Respiratory rate greater than 20 or PACO2 less than 32mmHg, WBC greater than 12,000,less than 4,000, or greater than 10% bands [...] of Lantus at night with prandial insulin andSliding scale-discharge insulin orders per endocrine Essential Hypertension Dyslipidemia Continue amlodipine, metoprolol, ezetimibe CKD stage III present on admission Closely monitor renal function while on IV Lasix, transition to orals Baseline Creatinine around 2 Hematuria Probably related to trauma from [place] S/p heparin drip Discharge Medications Discharge Medications [...] Ryley Jeter MD [address] [facility] [id number] Follow up Please call to schedule a follow up appointment to be seen in the next 1-2 weeks Condition at Discharge: Stable Disposition: Home with Home Health I reviewed discharge recommendations with the patient in person. Patient instructions, including activity, were given to the patient/family at discharge. On day of discharge I saw Enoc Armando and spent: > 30 minutes on discharge. Completed by: Ellie Aguilar on 12/01/23, 11:10 AM documented in this [id number] History of Present illness Narrative* Jody Hammonds, WOODWORKING CRAFTSMAN - 12/01/2023 10:20 AM EST Physical Therapy PHYSICAL THERAPY TREATMENT NOTE Skilled [...] Static: Supervision, without UE support, with device Procurement Technician - Standing Static: wheeled walker Loss of Balance- Standing Static: (none) Standing Balance - Dynamic: Stand by assist Procurement Technician - Standing Dynamic: wheeled walker Loss of Balance- Standing Dynamic: (none) Bed Mobility Supine to Sit: Contact guard assist, Head of bed elevated Procurement Technician: (none) Skilled Intervention Provided: verbal cues, monitoring patient response with activity, environmental setup/modification, facilitation, provided step by step instructions For: efficient movement, safety during functional tasks, sequencing of movement Resulting in: improved activity tolerance, improved functional independence, improved performance, improved safety, increased upright tolerance for functional tasks Transfers Sit to Stand: Stand by assist Procurement Technician: BUE, wheeled walker Additional Transfer Trial 2: Yes Sit to Stand Trial 2: Stand by assist Procurement Technician Trial 2: wheeled walker, BUE Skilled Intervention [...] of device, efficient movement, fall prevention, gait technique,LE management, obstacle negotiation, pathfinding, self-monitoring during activity, [...] Pt educated on safe use of stairs, focusingon technique and sequence to decrease fall risk. Pt returned to bedisde chair post tx with all needs met [...] O2;) Prior Level of Function Level of [place] - Transfers/Ambulation/Mobility: Independent with functional transfers, Independent with household ambulation, Independent with community ambulation (no AD for in home ambulation, intermitant use of cane in community for longer distances) Level of [place] - ADLs: Independent Level of [place] - Homemaking: ( takes care of all housework - but reports that hecould do it if needed.) Driving: Patient drives [...] completion of Physical Therapy Plan of Care. * Paty Ortega CNP - 12/01/2023 9:29 AM EST Patient ID: Patient Name: Enoc Armando Admit Date: 11/27/2023 MR #: [id number] : 1945 Current location: [facility] Physicians: Ryley Jeter MD (Family); Britton [...] eGFR 27, phos 2.3 Mg 2.1, HgbA1c 7.5%,TChol 130, TG 67, HDL 56, LDL 61.Patient [...] better and eager to go home. He isscheduled for outpatient ETT on Dec 10--may need [...] NST in a week, spoke with his baseball club manager Dr. Small, who will arrange to have test moved [...] CHF, hypertension, hyperlipidemia, emphysema who presented to [facility] emergency department with a complaint of shortness of breath. He was recently diagnosed with COVID infection on 10/19, a nd since then he has been experiencing intermittent chest pain and shortness of breath. On 11/27, hedeveloped severe respiratory distress and chest discomfort with diaphoresis, and presented to the emergency department for evaluation. He was found to have bilateral pleural effusions and right lowerlobe opacity, elevated troponin 2361, BG 523, T CO2 17. He was transferred to [facility] for further evaluation and treatment. [...] Currently the patient is receiving IV insulin.. Bloodsugar levels since admission have been ranging from [...] platelet count 220,000 Allergies: Allergies Allergen Reactions Tudvuuv-Qgc-Wik Reductase Inhibitors Muscle cramps Home Medications: Outpatient [...] past surgicalhistory and problem list. Objective: BP 134/73 (BP [...] this patient with you. Paty Ortega CNP * Domenica Torre RN - 12/01/2023 9:14 AM EST Care Management Progress Note Date: 12/01/2023 Time: 9:14 AM Patient Name: Enoc Armando Date of : 1945 Discharge Plan: D/C Disposition: Home Reason for Choice: Patient/Family preference Discharging Transportation Plan: Transportation Type: Auto Discharge Plan Status: Plan for pt discharge today. [facility] aware to deliver rollator today. Pt also aware plan for discharge today. Pt's family to transport pt to home. Pt declines HHC and out pt therapy. CM to follow. * Alfred Pabon CNP - 12/01/2023 8:49 AM EST Patient Name: Enoc Armando Admit Date: [id number] MR #: [id number] : 1945 Physicians: Ryley Jeter MD (Family); Ger Bansal DO (Referring) Assessment: Patient with 1. Respiratory failure 2. Suspicion for pneumonia 3. Possible congestive heart failure 4. Non-ST elevation AK. 5. History of COVID-19 infection. Plan: Continue patient on current therapy Continue patient on IV azithromycin Continue on ceftriaxone From [facility] 5 weeks ago patient was status post IV ceftriaxone and azithromycintreatment. Sputum culture: Showing gram-positive cocci Follow-up labs Follow-up ESR, C-reactive protein, D-dimer level, ferritin level, LDH. Urine for strep antigen and Legionella antigen are negative Patient on IV diuretics with furosemide. Follow-up labs For review chest x-ray, with infrahilar patchy opacities bilaterally. Get CT scan of the chest the patient is stable. Previous x-ray at [facility] had shown congestive changes and edema on [...] 97.9 F (36.6 C) SpO2: 94% Allergies: Hdssmpf-orw-etg reductase inhibitors Medications Reviewed. Current Facility-Administered Medications: acetaminophen (TYLENOL) tablet 650 mg, 650 mg, Oral, Q4H PRN, Norma Geiger CNP amLODIPine (NORVASC) tablet 10 mg, 10 mg, Oral, Daily, Norma Geiger CNP, 10 mg at 843 aspirin EC tablet 81 mg, 81 mg, [...] injection 20 mg, 20 mg, Intravenous, Q12H [facility], Iraida Alvarado CNP, 20 mg at 12/01/23 0500 insulin glargine (LANTUS) injection 14 Units, 14 Units, Subcutaneous, Nightly, Mary Vargas MD, 14 Units at 11/30/23 2017 insulin lispro (AdmeLOG,HumaLOG) injection 0-15 Units, 0-15 Units, Subcutaneous, at bedtime, Mary Vargas MD insulin lispro (AdmeLOG,HumaLOG) injection 0-30 Units, 0-30 Units, Subcutaneous, Daily before lunch, Mary Vargas MD, 12 Units at 11/30/23 1213 insulin lispro (AdmeLOG,HumaLOG) injection 0-30 Units, 0-30 Units, Subcutaneous, Before dinner, Mary Vargas MD, 9 Units at 11/30/23 1706 insulin lispro (AdmeLOG,HumaLOG) injection 0-30 Units, 0-30 Units, Subcutaneous, QAM Yuriy THORNTON Cynthia Ann, MD, 13 Units at 11/30/23 0843 ipratropium-albuteroL (DUO-NEB) 0.5-2.5 mg/3 ml nebulizer solution 3 mL, 3 mL, Inhalation, Q2H PRN,Norma Geiger CNP [COMPLETED] Insert Indwelling Urethral Catheter, [...] mg, 25 mg, Oral, Daily, Norma Geiger CNP,25 mg at 11/30/23 0843 nitroGLYCERIN (NITROSTAT) SL [...] 5 mL, Intravenous, PRN, 5 mL at 12/01/23 0415 AND sodium chloride (PF) (NS) flush 5 [...] excoriations Musculoskeletal: No joint swelling, non tender EXERCISE PHYSIOLOGIST CERTIFIED: Awake, and Ox3 Wound: No Osborne Catheter: None IV Access: yes I reviewed [...] CT of the chest in 1 year toconfirm stability. 5. Severe coronary artery calcifications. Workstation ID: [id number] XR Chest 1 View Final Result Bilateral infrahilar patchy opacities, concerning for pneumonia. [employer] Workstation ID: [id number] Laboratory and Additional Data [...] meaning can be extrapolated by contextual derivation. * Ellie Aguilar CNP - 11/30/2023 9:26 AM EST [facility] PROGRESS NOTE Assessment and Plan Enoc Armando is a 77 y.o. male patient of Ryley Jeter MD with history of HTN, HLD, DM Type I, CKD, COPD, chronic hypoxemic respiratory failure who presented to [facility] with respiratory distress . Severe Sepsis Present on admission: yes Etiology: Pneumonia SIRS criteria: Respiratory rate greater than 20 or PACO2 less than 32mmHg, WBC greater than 12,000,less than 4,000, or greater than 10% bands [...] of Lantus at night with prandial insulin andSliding scale Essential Hypertension Dyslipidemia Continue amlodipine, metoprolol, ezetimibe CKD stage III present on admission Closely monitor renal function while on IV Lasix Baseline Creatinine around 2 Hematuria Probably related to trauma from Osborne S/p heparin drip Continue to monitor Discharge Planning Medically Stable for Discharge Date: 12/01/23 Patient requires continued hospitalization due to: Ongoing treatment for pneumonia and CHF Discharge Location: TBD Quality Measures DVT Prophylaxis:scd Osborne Catheter: present Code Status full code Subjective [...] normal coloration Psych: normal mood and affect * Alfred Pabon CNP - 11/30/2023 8:55 AM EST Patient Name: Enoc Armando Admit Date: [id number] MR #: [id number] : 1945 Physicians: Ryley Jeter MD (Family); Ger Bansal DO (Referring) Assessment: Patient with 1. Respiratory failure 2. Suspicion for pneumonia 3. Possible congestive heart failure 4. Non-ST elevation AK. 5. History of COVID-19 infection. Plan: Continue patient on current therapy Continue patient on IV azithromycin Continue on ceftriaxone From [facility] 5 weeks ago patient was status post IV ceftriaxone and azithromycintreatment. Sputum culture: Showing gram-positive cocci Follow-up labs Follow-up ESR, C-reactive protein, D-dimer level, ferritin level, LDH. Urine for strep antigen and Legionella antigen are negative Patient on IV diuretics with furosemide. Follow-up labs For review chest x-ray, with infrahilar patchy opacities bilaterally. Get CT scan of the chest the patient is stable. Previous x-ray at [facility] had shown congestive changes and edema on [...] 97.7 F (36.5 C) SpO2: 97% Allergies: Eznolpy-lrr-vca reductase inhibitors Medications Reviewed. Current Facility-Administered Medications: acetaminophen (TYLENOL) tablet 650 mg, 650 mg, Oral, Q4H PRN, Norma Geiger CNP amLODIPine (NORVASC) tablet 10 mg, 10 mg, Oral, Daily, Norma Geiger CNP, 10 mg at 843 aspirin EC tablet 81 mg, 81 mg, [...] 14 Units, 14 Units, Subcutaneous, Nightly, Mary Vargas MD insulin lispro (AdmeLOG,HumaLOG) injection 0-15 Units, 0-15 Units, Subcutaneous, at bedtime, Mary Vargas MD insulin lispro (AdmeLOG,HumaLOG) injection 0-30 Units, 0-30 Units, Subcutaneous, Daily before lunch, Mary Vargas MD, 9 Units at 11/29/23 1200 insulin lispro (AdmeLOG,HumaLOG) injection 0-30 Units, 0-30 Units, Subcutaneous, Before dinner, Mary Vargas MD, 10 Units at 11/29/23 1650 insulin lispro (AdmeLOG,HumaLOG) injection 0-30 Units, 0-30 Units, Subcutaneous, QAM AC, Mary Vargas MD, 13 Units at 11/30/23 0843 ipratropium-albuteroL (DUO-NEB) 0.5-2.5 mg/3 ml nebulizer solution 3 mL, 3 mL, Inhalation, Q2H PRN,Norma Geiger CNP [COMPLETED] Insert Indwelling Urethral Catheter, [...] mg, 25 mg, Oral, Daily, Norma Geiger CNP,25 mg at 11/30/23 0843 nitroGLYCERIN (NITROSTAT) SL tablet 0.4 mg, 0.4 mg, Sublingual, Q5 Min PRN, Norma Geiger CNP ondansetron (ZOFRAN-ODT) disintegrating tablet 4 mg, 4 mg, Oral, Q6H PRN OR ondansetron (ZOFRAN) injection 4 mg, 4 mg, Intravenous, Q6H PRN, oNrma Geiger CNP Saline lock IV, , , Continuous AND sodium chloride (PF) (NS) flush 5 mL, 5 mL, Intravenous, PRNAND sodium chloride (PF) (NS) flush 5 mL, 5 mL, Intravenous, Q8H DIDI, 5 mL at 11/30/23 0551 AND sodium chloride 0.9% (NS), 0-150 mL/hr, Intravenous, PRN, Norma Geiger, TRISTAN Review of Systems: Constitutional: Negative for fatigue, [...] excoriations Musculoskeletal: No joint swelling, non tender EXERCISE PHYSIOLOGIST CERTIFIED: Awake, and Ox3 Wound: No Osborne Catheter: None IV Access: yes I reviewed [...] CT of the chest in 1 year toconfirm stability. 5. Severe coronary artery calcifications. Workstation ID: [id number] XR Chest 1 View Final Result Bilateral infrahilar patchy opacities, concerning for pneumonia. Y/vrs Workstation ID: [id number] Echocardiogram complete (Results Pending) [...] meaning can be extrapolated by contextual derivation. * Mary Vargas MD - 11/30/2023 8:39 AM EST Patient ID: Patient Name: Enoc Armando Admit Date: 11/27/2023 MR #: [id number] : 1945 Current location: [facility] Physicians: Ryley Jeter MD (Family); Britton [...] eGFR 27, phos 2.3 Mg 2.1, HgbA1c 7.5%,TChol 130, TG 67, HDL 56, LDL 61.Patient [...] better and eager to go home. He isscheduled for outpatient ETT on Dec 10--may need [...] CHF, hypertension, hyperlipidemia, emphysema who presented to [facility] emergency department with a complaint of shortness of breath. He was recently diagnosed with COVID infection on 10/19, a nd since then he has been experiencing intermittent chest pain and shortness of breath. On 11/27, hedeveloped severe respiratory distress and chest discomfort with diaphoresis, and presented to the emergency department for evaluation. He was found to have bilateral pleural effusions and right lowerlobe opacity, elevated troponin 2361, BG 523, T CO2 17. He was transferred to [facility] for further evaluation and treatment. [...] Currently the patient is receiving IV insulin.. Bloodsugar levels since admission have been ranging from [...] platelet count 220,000 Allergies: Allergies Allergen Reactions Itnkehx-Prm-Ywl Reductase Inhibitors Muscle cramps Home Medications: Outpatient [...] surgicalhistory and problem list. Objective: BP (!) 173/82 [...] to follow this patient with you. Mary Vargas MD * Alfred Pabon, AUTO CRANE DRIVER - 11/29/2023 3:06 PM EST Patient Name: Enoc Armando Admit Date: [id number] MR #: [id number] : 1945 Physicians: Ryley Jeter MD (Family); Ger Bansal DO (Referring) Assessment: Patient with 1. Respiratory failure 2. Suspicion for pneumonia 3. Possible congestive heart failure 4. Non-ST elevation AK. 5. History of COVID-19 infection. Plan: Continue patient on current therapy Continue patient on IV azithromycin Continue on ceftriaxone From [facility] 5 weeks ago patient was status post IV ceftriaxone and azithromycintreatment. Sputum culture: Showing gram-positive cocci Follow-up labs Follow-up ESR, C-reactive protein, D-dimer level, ferritin level, LDH. Urine for strep antigen and Legionella antigen are negative Patient on IV diuretics with furosemide. Follow-up labs For review chest x-ray, with infrahilar patchy opacities bilaterally. Get CT scan of the chest the patient is stable. Previous x-ray at [facility] had shown congestive changes and edema on [...] has no fever or chills. Saturating on 2L of oxygen at 97%. Exam: PACU Vitals 11/29/23 1120 BP: (!) 148/71 Pulse: 76 Resp: 16 Temp: 97.9 F (36.6 C) SpO2: 97% Allergies: Plpsmnv-mbs-ald reductase inhibitors Medications Reviewed. Current Facility-Administered Medications: acetaminophen (TYLENOL) tablet 650 mg, 650 mg, Oral, Q4H PRN, Norma Geiger CNP amLODIPine (NORVASC) tablet 10 mg, 10 mg, Oral, Daily, Norma Geiger CNP, 10 mg at 749 aspirin EC tablet 81 mg, 81 mg, [...] tablet 10 mg, 10 mg, Oral, Daily, JuanjoNorma whitley CNP, 10 mg at 11/29/23 0749 furosemide (LASIX) injection 20 mg, 20 mg, Intravenous, Q12H [facility], Iraida Alvarado CNP, 20 mg at 11/29/23 0611 insulin glargine (LANTUS) injection 16 Units, 16 Units, Subcutaneous, Nightly, Mary Vargas MD insulin lispro (AdmeLOG,HumaLOG) injection 0-15 Units, 0-15 Units, Subcutaneous, at bedtime, Mary Vargas MD insulin lispro (AdmeLOG,HumaLOG) injection 0-30 Units, 0-30 Units, Subcutaneous, Daily before lunch, Mary Vargas MD, 9 Units at 11/29/23 1200 insulin lispro (AdmeLOG,HumaLOG) injection 0-30 Units, 0-30 Units, Subcutaneous, Before dinner, Mary Vargas MD [START ON 11/30/2023] insulin lispro (AdmeLOG,HumaLOG) injection 0-30 Units, 0-30 Units, Subcutaneous, QAM AC, Mary Vargas MD ipratropium-albuteroL (DUO-NEB) 0.5-2.5 mg/3 ml nebulizer solution 3 mL, 3 mL, Inhalation, Q2H PRN,Norma Geiger CNP [COMPLETED] Insert Indwelling Urethral Catheter, [...] mg, 25 mg, Oral, Daily, Norma Geiger CNP,25 mg at 11/29/23 0749 nitroGLYCERIN (NITROSTAT) SL tablet 0.4 mg, 0.4 mg, Sublingual, Q5 Min PRN, Norma Geiger CNP ondansetron (ZOFRAN-ODT) disintegrating tablet 4 mg, 4 mg, Oral, Q6H PRN OR ondansetron (ZOFRAN) injection 4 mg, 4 mg, Intravenous, Q6H PRN, Norma Geiger, TRISTAN Saline lock IV, , , Continuous AND sodium chloride (PF) (NS) flush 5 mL, 5 mL, Intravenous, PRNAND sodium chloride (PF) (NS) flush 5 mL, 5 mL, Intravenous, Q8H DIDI, 5 mL at 11/29/23 1409 AND sodium chloride 0.9% (NS), 0-150 mL/hr, Intravenous, PRN, Norma Geiger, TRISTAN Review of Systems: Constitutional: Negative for fatigue, [...] excoriations Musculoskeletal: No joint swelling, non tender EXERCISE PHYSIOLOGIST CERTIFIED: Awake, and Ox3 Wound: No Osborne Catheter: None IV Access: yes I reviewed Medications. I reviewed Labs. XR Chest 1 View Final Result Bilateral infrahilar patchy opacities, concerning for pneumonia. [employer] Workstation ID: [id number] Echocardiogram complete (Results Pending) [...] meaning can be extrapolated by contextual derivation. * Cintia Benitez MD - 11/29/2023 1:37 PM EST [facility] PROGRESS NOTE Assessment and Plan Enoc Armando is a 77 y.o. male patient of Ryley Jeter MD with history of HTN, HLD, DM Type I, CKD, COPD, chronic hypoxemic respiratory failure who presented to [facility] with respiratory distress . Severe Sepsis Present on admission: yes Etiology: Pneumonia SIRS criteria: Respiratory rate greater than 20 or PACO2 less than 32mmHg, WBC greater than 12,000,less than 4,000, or greater than 10% bands [...] Lasix Hematuria Probably related to trauma from Osborne Patient currently on heparin drip Discharge Planning Medically Stable for Discharge Date: TBD Patient requires continued hospitalization due to: Ongoing treatment for pneumonia and CHF Discharge Location: TBD Quality Measures DVT Prophylaxis:scd Osborne Catheter: present Code Status full code Primary [...] normal coloration Psych: normal mood and affect * Mary Vargas MD - 11/29/2023 8:15 AM EST Patient ID: Patient Name: Enoc Armando Admit Date: 11/27/2023 MR #: [id number] : 1945 Current location: [facility] Physicians: Ryley Jeter MD (Family); Britton [...] eGFR 27, phos 2.3 Mg 2.1, HgbA1c 7.5%,TChol 130, TG 67, HDL 56, LDL 61.Patient [...] CHF, hypertension, hyperlipidemia, emphysema who presented to [facility] emergency department with a complaint of shortness of breath. He was recently diagnosed with COVID infection on 10/19, a nd since then he has been experiencing intermittent chest pain and shortness of breath. On 11/27, hedeveloped severe respiratory distress and chest discomfort with diaphoresis, and presented to the emergency department for evaluation. He was found to have bilateral pleural effusions and right lowerlobe opacity, elevated troponin 2361, BG 523, T CO2 17. He was transferred to [facility] for further evaluation and treatment. [...] Currently the patient is receiving IV insulin.. Bloodsugar levels since admission have been ranging from [...] platelet count 220,000 Allergies: Allergies Allergen Reactions Jmhyukm-Qxx-Tkt Reductase Inhibitors Muscle cramps Home Medications: Outpatient [...] sodium chloride (PF) 5 mL Intravenous Q8H [facility] acetaminophen, dextrose, heparin, ipratropium-albuteroL, [COMPLETED] Insert Indwelling Urethral Catheter AND Maintain and Assess Indwelling Urethral Catheter AND [COMPLETED] Remove and Discontinue Indwelling Urethral Catheter - Remove PER NURSING POLICY AND lidocaine HCL, nitroGLYCERIN,ondansetron OR ondansetron, Saline lock IV AND sodium chloride (PF) AND sodium chloride(PF) AND sodium chloride 0.9 % Review of [...] surgicalhistory and problem list. Objective: BP (!) 158/68 [...] to follow this patient with you. Mary Vargas MD * Iraida Alvarado CNP - 11/28/2023 11:39 AM EST General Cardiology Inpatient Follow-up Heart & Vascular [facility] 11/28/2023 Iraida Alvarado CNP [facility] Patient: Enoc Armando Date of : 1945 (77 y.o.) Referring Provider: Ger Bansal DO PCP: Ryley Jeter MD Cardiology sign-off [...] or hydralazine would be drugs of choice givenLV dysfunction - Transitional care in 5 weeks. - Outpatient SPECT in 6 weeks. Assessment/Plan: NSTEMI, type II - Type II NSTEMI due to pneumonia, sepsis, lactic acidosis, MADONNA hyperglycemia, respiratory distress. Delta D is negative - Troponin 9973, 9973 in the setting of white count 20,000 and elevated lactic acid. - EKG showed SR suggest previous anterior AK, minor ST depression laterally similar to 10/11/2023 [...] or hydralazine would be drugs of choice givenLV dysfunction - Transitional care in 5 weeks. [...] smoker, emphysema, chronic hypoxemia and CHF who presentto the ED on 11/27/2023 w/ respiratory distress. Cardiac Echo: pending. Subjective: Patient is orient x 3. Telemetry: SR Allergies: Uqtrypi-dzm-lia reductase inhibitors Review of Systems: The following [...] TROPONINI 9,349 (CH) 11/27/2023 Iraida Alvarado CNP Kalani Hernandez - 11/28/2023 11:16 AM EST Spiritual Care Progress Note Completed by: Kalani Claros Person(s) Present During this Visit: Patient Time Spent in Direct Patient Care: 15 Narrative: This deputy sheriff generalist/bailiff visited the pt., Enoc, while rounding. Introduced [...] of his children and grandchildren. 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 This deputy sheriff generalist/bailiff helped the pt explore their feelings about their hospitalization and identify sources of support. This deputy sheriff generalist/bailiff provided information about Pastoral Care services and how to contact a deputy sheriff generalist/bailiff. Pastoral Care team will remain available to support patient and family PRN. 11/28/23 1116 Visit Background Visit With Patient Visit By Staff Station Mechanic Visit Progression Introduction Visit Requested By Station Mechanic Initiated Visit Source Station Mechanic Initiated Visit Type Inpatient;Rounding Visit Circumstances and Events Routine Visit Visit Length (minutes) 15 Patient's Response to Pastoral Care Appeared to be well-engaged;Expressed Gratitude for Visit Visit Planning PRN;Pt aware to contact Station Mechanic as needed Spiritual Assessment Assessed during this visit Evangelical Assessment Not assessed during this visit Family [...] Facilitated Interventions Active Listening;Explained Role of the Station Mechanic;Explored thoughts/feelings associated with current hospitalization;Relationships Spiritual/Emotional Outcomes Appreciative;Gratitude Spiritual Plan of Care Continue Healing Process;Receive Spiritual Support Signature: Kalani Claros MDiv Staff Station Mechanic [facility] 24hr On-Call /Adriana On-Call Station Mechanic She/Her/Hers * Cintia Benitez MD - 11/28/2023 10:49 AM EST [facility] PROGRESS NOTE Assessment and Plan Enoc Armando is a 77 y.o. male patient of Ryley Jeter MD with history of HTN, HLD, DM Type I, CKD, COPD, chronic hypoxemic respiratory failure who presented to [facility] with respiratory distress . Severe Sepsis Present on admission: yes Etiology: Pneumonia SIRS criteria: Respiratory rate greater than 20 or PACO2 less than 32mmHg, WBC greater than 12,000,less than 4,000, or greater than 10% bands [...] TBD Quality Measures DVT Prophylaxis: heparin subcutaneous Osborne Catheter: present Code Status full code Primary [...] normal coloration Psych: normal mood and affect * Alfred Pabon, TRISTAN - 11/28/2023 8:52 AM EST Patient Name: Enoc Armando Admit Date: 1261205 MR #: [id number] : 1945 Physicians: Ryley Jeter MD (Family); Ger Bansal DO (Referring) Assessment: Patient with 1. Respiratory failure 2. Suspicion for pneumonia 3. Possible congestive heart failure 4. Non-ST elevation AK. 5. History of COVID-19 infection. Plan: Continue patient on current therapy Continue patient on IV azithromycin Continue on ceftriaxone From [facility] 5 weeks ago patient was status post IV ceftriaxone and azithromycintreatment. Sputum culture: Showing gram-positive cocci Follow-up labs Follow-up ESR, C-reactive protein, D-dimer level, ferritin level, LDH. Urine for strep antigen and Legionella antigen are negative Patient on IV diuretics with furosemide. Follow-up labs For review chest x-ray, with infrahilar patchy opacities bilaterally. Get CT scan of the chest the patient is stable. Previous x-ray at [facility] had shown congestive changes and edema on 11/26/2023. Patient on BiPAP Aspiration precaution recommended Patient was status post 3 shots of COVID-19 immunization in the past. I discussed with spouse on management plan Will continue to follow with you. Subjective: Patient was seen in a stable condition about to move upstairs to a better room. Patientstated that he is doing well today and has no fever or chills. Saturating on 2 L of oxygen at 97%. Exam: PACU Vitals 11/30/23 0839 BP: (!) 173/82 Pulse: 81 Resp: Temp: 97.7 F (36.5 C) SpO2: 97% Allergies: Jgpfxoz-huq-ffd reductase inhibitors Medications Reviewed. Current Facility-Administered Medications: acetaminophen (TYLENOL) tablet 650 mg, 650 mg, Oral, Q4H PRN, Norma Geiger CNP amLODIPine (NORVASC) tablet 10 mg, 10 mg, Oral, Daily, Norma Geiger CNP, 10 mg at 843 aspirin EC tablet 81 mg, 81 mg, [...] 14 Units, 14 Units, Subcutaneous, Nightly, Mary Vargas MD insulin lispro (AdmeLOG,HumaLOG) injection 0-15 Units, 0-15 Units, Subcutaneous, at bedtime, Mary Vargas MD insulin lispro (AdmeLOG,HumaLOG) injection 0-30 Units, 0-30 Units, Subcutaneous, Daily before lunch, Mary Vargas MD, 9 Units at 11/29/23 1200 insulin lispro (AdmeLOG,HumaLOG) injection 0-30 Units, 0-30 Units, Subcutaneous, Before dinner, Mary Vargas MD, 10 Units at 11/29/23 1650 insulin lispro (AdmeLOG,HumaLOG) injection 0-30 Units, 0-30 Units, Subcutaneous, QAM AC, Mary Vargas MD, 13 Units at 11/30/23 0843 ipratropium-albuteroL (DUO-NEB) 0.5-2.5 mg/3 ml nebulizer solution 3 mL, 3 mL, Inhalation, Q2H PRN,Norma Geiger CNP [COMPLETED] Insert Indwelling Urethral Catheter, [...] mg, 25 mg, Oral, Daily, Norma Geiger CNP,25 mg at 11/30/23 0843 nitroGLYCERIN (NITROSTAT) SL tablet 0.4 mg, 0.4 mg, Sublingual, Q5 Min PRN, Norma Geiger CNP ondansetron (ZOFRAN-ODT) disintegrating tablet 4 mg, 4 mg, Oral, Q6H PRN OR ondansetron (ZOFRAN) injection 4 mg, 4 mg, Intravenous, Q6H PRN, Norma Geiger CNP Saline lock IV, , , Continuous AND sodium chloride (PF) (NS) flush 5 mL, 5 mL, Intravenous, PRNAND sodium chloride (PF) (NS) flush 5 mL, [...] excoriations Musculoskeletal: No joint swelling, non tender EXERCISE PHYSIOLOGIST CERTIFIED: Awake, and Ox3 Wound: No Osborne Catheter: None IV Access: yes I reviewed [...] CT of the chest in 1 year toconfirm stability. 5. Severe coronary artery calcifications. Workstation ID: [id number] XR Chest 1 View Final Result Bilateral infrahilar patchy opacities, concerning for pneumonia. EYY/vrs Workstation ID: [id number] Echocardiogram complete (Results Pending) [...] meaning can be extrapolated by contextual derivation. * Prashant Cesar MD - 11/28/2023 8:42 AM EST CRITICAL CARE PROGRESS 11/28/2023 Patient: Enoc Armando Date of : 1945 Site: [facility] Provider: Prashant Cesar MD ASSESSMENT/PLAN: Enoc Armando 77 y.o. male transferred last night for resp distress, NSTEMI, hypergllycemia from [facility] Three weeks ago testing positive for Covid and then diagnosed with pneumonia. He has been treated as an outpatient with oral antibiotics. He has been experiencing intermittent midsternal chest pain for the past 3 weeks On arrival to [facility], he was placed on NIPPV with improvement in respiratory effort. Routine labs were drawn which showed a WBC 20, bicarb 17, creatinine 1.9, troponin 2361. CXR showed bilateral pleural effusions and right lower lobe opacity. He was started colton heparin infusion, Lasix 80, insulin gtt , abx, pressors/steroids/ Today, pt is doing well on NC and is off BiPAP after diuresis. He wears BiPAP for sleeping.. Insulin drip stopped WBC falling to 14 Creat stabalizing 1.99 Respiratory: Pattern of CHF Small Bilat effusions RLL opacity Potential nodule to be worked up later Azithromycin/Ceftriaxone Cardiovascular: Troponin 2361 BNP 16,730 Prior AK NSTEMI Cardiology consulted Heparin gtt Neuro/Muscular: Alert [...] Norma Geiger CNP 20 mg at 11/27/23 202 azithromycin (ZITHROMAX) 500 mg in sodium chloride [...] 14 Units 14 Units Subcutaneous Nightly Mary Vargas MD insulin lispro (AdmeLOG,HumaLOG) injection 0-15 Units 0-15 Units Subcutaneous at bedtime Mary Vargas MD insulin lispro (AdmeLOG,HumaLOG) injection 0-30 Units 0-30 Units Subcutaneous QAM AC Mary Vargas MD 9 Units at 11/28/23 0824 insulin lispro (AdmeLOG,HumaLOG) injection 0-30 Units 0-30 Units Subcutaneous Daily before lunch Mary Vargas MD insulin lispro (AdmeLOG,HumaLOG) injection 0-30 Units 0-30 Units Subcutaneous Before dinner Mary Vargas MD ipratropium-albuteroL (DUO-NEB) 0.5-2.5 mg/3 ml nebulizer solution 3 mL 3 mL Inhalation Q4H DIDI Norma Geiger CNP 3 mL at 11/28/23 0727 ipratropium-albuteroL (DUO-NEB) 0.5-2.5 mg/3 ml nebulizer solution 3 mL 3 mL Inhalation Q2H PRN Norma Geiger CNP lidocaine HCL (UROJET/GLYDO) 2 % applicator 1 Application 1 Application Intra- urethral PRN Norma Geiger CNP metoprolol succinate (TOPROL-XL) [...] 0-10 mL of mixture 0-10 mL of mixtureIntravenous Once in imaging Norma Geiger CNP sodium chloride (PF) (NS) flush 5 mL 5 mL Intravenous PRN Norma Geiger CNP And sodium chloride (PF) (NS) flush 5 mL 5 mL Intravenous Q8H [facility] Norma Geiger CNP 5 mL at 11/28/23 0523 And sodium chloride 0.9% (NS) 0-150 mL/hr Intravenous PRN Norma Geiger CNP [x] Medications reviewed. [x] Labs reviewed. Pertinent findings noted: [x] Radiology reviewed. Pertinent findings noted: [] Pathology reviewed. Pertinent findings noted: Family Update/ Code Status: Full code CTT 33 min Laboratory and Additional Data Reviewed: Reviewed 11/28/23 8:42 AM: Laboratory and Microbiology * Mary Vargas MD - 11/28/2023 8:00 AM EST Patient ID: Patient Name: Enoc Armando Admit Date: 11/27/2023 MR #: [id number] : 1945 Current location: [facility] Physicians: Ryley Jeter MD (Family); Britton [...] eGFR 27, phos 2.3 Mg 2.1, HgbA1c 7.5%,TChol 130, TG 67, HDL 56, LDL 61.Patient [...] CHF, hypertension, hyperlipidemia, emphysema who presented to [facility] emergency department with a complaint of shortness of breath. He was recently diagnosed with COVID infection on 10/19, a nd since then he has been experiencing intermittent chest pain and shortness of breath. On 11/27, hedeveloped severe respiratory distress and chest discomfort with diaphoresis, and presented to the emergency department for evaluation. He was found to have bilateral pleural effusions and right lowerlobe opacity, elevated troponin 2361, BG 523, T CO2 17. He was transferred to [facility] for further evaluation and treatment. [...] Currently the patient is receiving IV insulin.. Bloodsugar levels since admission have been ranging from [...] platelet count 220,000 Allergies: Allergies Allergen Reactions Ctenwoo-Tql-Ikf Reductase Inhibitors Muscle cramps Home Medications: Outpatient [...] Remove PER NURSING POLICY AND lidocaine HCL, nitroGLYCERIN,ondansetron OR ondansetron, perflutren lipid microspheres, Saline lock [...] past surgicalhistory and problem list. Objective: BP 112/60 Pulse [...] to follow this patient with you. Mary Vargas MD * Prashant Cesar MD - 11/27/2023 8:34 AM EST CRITICAL CARE PROGRESS 11/27/2023 Patient: Enoc Armando Date of : 1945 Site: [facility] Provider: Prashant Cesar MD ASSESSMENT/PLAN: Enoc Armando 77 y.o. male transferred last night for resp distress, NSTEMI, hypergllycemia from [facility] Three weeks ago testing positive for Covid and then diagnosed with pneumonia. He has been treated as an outpatient with oral antibiotics. He has been experiencing intermittent midsternal chest pain for the past 3 weeks On arrival to [facility], he was placed on NIPPV with improvement in respiratory effort. Routine labs were drawn which showed a WBC 20, bicarb 17, creatinine 1.9, troponin 2361. CXR showed bilateral pleural effusions and right lower lobe opacity. He was started colton heparin infusion, Lasix 80, insulin gtt , abx, pressors/steroids/ Respiratory: Pattern of CHF Small Bilat effusions RLL opacity Potential nodule to be worked up later On BiPAP, comfortable SIRS Lactate 3.8 WBC 23.7 Bicarb 21 Azithromycin/Ceftriaxone FiO2 30% Cardiovascular: Troponin 2361 BNP 16,730 Prior AK NSTEMI Cardiology consulted Heparin gtt Neuro/Muscular: Alert [...] 2 % applicator 1 Application 1 Application Intra- urethral PRN Norma Geiger CNP metoprolol succinate (TOPROL-XL) [...] 0-10 mL of mixture 0-10 mL of mixtureIntravenous Once in imaging Norma Geiger CNP sodium chloride (PF) (NS) flush 5 mL 5 mL Intravenous PRN Norma Geiger CNP And sodium chloride (PF) (NS) flush 5 mL 5 mL Intravenous Q8H [facility] Norma Geiger CNP 5 mL at 11/27/23 0515 And sodium chloride 0.9% (NS) 0-150 mL/hr Intravenous PRN Norma Geiger CNP [x] Medications reviewed. [x] Labs reviewed. Pertinent findings noted: [x] Radiology reviewed. Pertinent findings noted: [] Pathology reviewed. Pertinent findings noted: Family Update/ Code Status: Full code Laboratory and Additional Data Reviewed: Reviewed 11/27/23 8:35 AM: Laboratory and Microbiology documented in this [id number] Consult note* Domenica Torre RN - 11/30/2023 2:28 PM ESTAssociated Order(s): IP CONSULT TO CARE MANAGEMENT Care Management Consult Note Date: 11/30/2023 Time: 2:28 PM Patient Name: Enoc Armando Date of : 1945 Reason for Consult: [...] is agreeable to MSC. CM to follow. * Kimberlyn Mueller, PT - 11/30/2023 11:11 AM EST Physical Therapy PHYSICAL THERAPY EVALUATION and TREATMENT [...] result in limitations of Gait, Functional Transfers, Stair- Climbing, Safety, Activity Tolerance. These impairments result in [...] Balance - Static: Supervision, without UE support Procurement Technician - Standing Static: (no device) Standing Balance - Dynamic: Stand by assist, Contact guard assist (without device; sba/ supervisionwith rollator) Procurement Technician - Standing Dynamic: (trialed with and without rollator) Loss of Balance- Standing Dynamic: (left path deviation unsteadiness without device; no LOB with use of rollator and gait steadiness much improved.) Bed Mobility Rolling: Modified independent, Head of bed flat Supine to Sit: Modified independent, Head of bed flat Sit to Supine: (NT: pt up in chair post PT session) Procurement Technician: (none) Transfers Sit to Stand: Stand by assist Bed to Chair: Stand by assist, Contact guard assist (no device) Stand Pivot Transfers: Stand by assist, Contact guard assist (no device) Procurement Technician: (no AD) Additional Transfer Trial 2: Yes Sit to Stand Trial 2: Stand by assist (from chair with karin ue support) Procurement Technician Trial 2: BUE Additional Transfer Trial 3: Yes Sit to Stand Trial 3: Stand by assist (from locked rollator seat) Procurement Technician Trial 3: (locked rollator handles) Gait/Locomotion Gait [...] O2;) Prior Level of Function Level of [place] - Transfers/Ambulation/Mobility: Independent with functional transfers, Independent with household ambulation, Independent with community ambulation (no AD for in home ambulation, intermitant use of cane in community for longer distances) Level of [place] - ADLs: Independent Level of [place] - Homemaking: ( takes care of all housework - but reports that hecould do it if needed.) Driving: Patient drives [...] activity tolerance, improved performance, improved safety, increased uprighttolerance for functional tasks (with use of rollator) [...] with exertion. RN ok'd for pt to remainon RA post PT session. Gait mildly unsteady with pt often demonstrating mild path deviation to right but able to self correct without LOB without device. Pt trialed rollator and reported he very muchliked support it provided as well as giving the ability to sit and rest as needed on long distance ambulation. Pt educate on locking/ braking system with transfers/ sitting and pt able to return gooddemonstration of understnading. CM notified of pt needs for rollator at discharge. Pt declined PT services at [place]. Pt up in chair post PT session. Break away alarm donned. Handoff provided to RN. Patient educated on home safety, fall prevention, energy conservation, need for slow transitional movements and directional changes to decrease fall risk, safe/ proper use of assistive device, properhand placement for transfer safety , proper and safe mobility through verbal instruction and demonstration. Pt educated on need for patient to use call light to notify staff to assist with all functional transfers/mobility to maximize safety and decrease risk for falls. Patient educated on purpose,plan and goals for skilled PT services and [...] hospital or completion of Physical Therapy Plan. * Grazyna Obregon, RD - 11/29/2023 12:33 PM ESTAssociated Order(s): IP CONSULT TO DIETITIAN Nutrition Care [...] impaired appetite at present. Encouraged regular meal consumption,gradually eating a bit more at each meal [...] Oral Daily furosemide 20 mg Intravenous Q12H [facility] insulin glargine 16 Units Subcutaneous Nightly lispro insulin 0-15 Units Subcutaneous at bedtime insulin lispro 0-30 Units Subcutaneous Daily before lunch insulin lispro 0-30 Units Subcutaneous Before dinner [START ON 11/30/2023] insulin lispro 0-30 Units Subcutaneous QAM AC metoprolol succinate 25 mg Oral Daily sodium chloride (PF) 5 mL Intravenous Q8H [facility] Continuous Infusions: heparin infusion (weight based dosing) 16 Units/kg/hr (11/29/23 0616) heparin sodium chloride 0.9 % Estimated Energy Needs Total Energy Estimated Needs: 1397-8877 kcal/d Method for Estimating Needs: 25-30 kcal/kg current wt Total Protein Estimated Needs: 65 g/d Method for Estimating Needs: 1 g/kg current wt Grazyna Obregon RDN, LD, [facility] Office * Chaya Mayfield RN - 11/29/2023 9:30 AM ESTAssociated Order(s): IP CONSULT TO TOBACCO ACREAGE MEASURER Met with pt for diabetes education. States he's had T1DM for many years. Keeps it fairly well controlled. Always takes his insulin and tries to stay away from foods that he knows is going to spike his blood sugar. States he has occasional hypoglycemia. Treats it appropriately. States he's never hadDKA that he knows of but would like to know about it. Discussed pt's A1C of 7.5% and goal, target le vels for control, the importance of a regular feeding schedule, balancing CHOs at feedings, stayingactive, DKA including ketone testing and when to contact Dr. Vargas's office or go to the ED. Questions answered. * Prashant Cesar MD - 11/28/2023 4:07 PM ESTAssociated Order(s): IP CONSULT TO BENCH MOLDER See earlier consult * Gaudencio Pabon MD - 11/27/2023 2:50 PM EST Patient Name: Enoc Armando MR #: [id number] : 1945 Physicians: Ryley Jeter MD (Family); Ger Bansal DO (Referring) Chief complaint: Enoc Armando is a 77 y.o. male presented with [...] COVID-19 infection, and then was admitted in [facility]. At that time he was having respiratory failure, and also was having bilateral infiltrates and was found with echocardiogram with ejection fraction of 35%. At [facility], patient was treated with BiPAP, ceftriaxone, azithromycin, and dexamethasone. Was not placed on remdesivir or any Paxlovid. Patient presents on this visit with worsening history of shortness of breath. He had also some cough with sputum production but not as much. He did not have fever or chills. No history of chest pain.No history of night sweats. Patient was found with Tmax of 99.7,And was rescreened for COVID-19 with molecular test was positive but negative PCR. He also had respiratory failure, [place] [address], And troponin of 9000. Patient also had [...] chloride (PF) 5 mL Intravenous Q8H [facility] Allergy Information: I have reviewed the patient's allergies. Jsnqzuu-hry-obu reductase inhibitors Review of Systems: Review of Systems Constitutional: Positive for fatigue. Negative for chills and fever. Respiratory: Positive for cough and shortness of breath. Negative for wheezing. Cardiovascular: Negative for chest pain, palpitations and leg swelling. Gastrointestinal: Negative for abdominal distention, abdominal pain, constipation, diarrhea, nauseaand vomiting. Endocrine: Negative for polydipsia, polyphagia and [...] Bilateral infrahilar patchy opacities, concerning for pneumonia. C3[employer] Workstation ID: [id number] Echocardiogram complete (Results Pending) [...] Possible congestive heart failure 4. Non-ST elevation AK. 5. History of COVID-19 infection. Plan. Continue patient on current therapy Patient currently on IV azithromycin Patient on ceftriaxone From [facility] 5 weeks ago patient was status post IV ceftriaxone and azithromycintreatment. Will get sputum culture. Follow-up labs Follow-up ESR, C-reactive protein, D-dimer level, ferritin level, LDH. Urine for strep antigen and Legionella antigen are negative Patient on IV diuretics with furosemide. Follow-up labs For review chest x-ray, with infrahilar patchy opacities bilaterally. Get CT scan of the chest the patient is stable. Previous x-ray at [facility] had shown congestive changes and edema on [...] meaning can be extrapolated by contextual derivation. * Mary Vargas MD - 11/27/2023 7:20 AM ESTAssociated Order(s): IP CONSULT TO ENDOCRINOLOGY Patient ID: Patient Name: Enoc Armando Admit Date: 11/27/2023 MR #: [id number] : 1945 Current location: [facility] Physicians: Ryley Jeter MD (Family); Britton [...] eGFR 27, phos 2.3 Mg 2.1, HgbA1c 7.5%,TChol 130, TG 67, HDL 56, LDL 61.Patient remains NPO, on IV insulin. Blood Glucoses: 11/27 523---544 Plan: 1. Rx changes: 11/27 Continue IV insulin until stable, then resume QID regimen. Subjective: Brief HPI: Patient is a 77-year-old male with a history of type 1 diabetes mellitus for 29 years, CHF, hypertension, hyperlipidemia, emphysema who presented to [facility] emergency department with a complaint of shortness of breath. He was recently diagnosed with COVID infection on 10/19, a nd since then he has been experiencing intermittent chest pain and shortness of breath. On 11/27, hedeveloped severe respiratory distress and chest discomfort with diaphoresis, and presented to the emergency department for evaluation. He was found to have bilateral pleural effusions and right lowerlobe opacity, elevated troponin 2361, BG 523, T CO2 17. He was transferred to [facility] for further evaluation and treatment. [...] Currently the patient is receiving IV insulin.. Bloodsugar levels since admission have been ranging from [...] platelet count 220,000 Allergies: Allergies Allergen Reactions Vgbjaji-Sjf-Etk Reductase Inhibitors Muscle cramps Home Medications: Outpatient [...] surgicalhistory and problem list. Objective: BP (!) 166/56 [...] to follow this patient with you. Mary Vargas MD * Julia Parker MD - 11/27/2023 6:35 AM ESTAssociated Order(s): IP CONSULT TO CARDIOLOGY INPATIENT CONSULT NOTE 11/27/2023 ASSESSMENT/PLAN NSTEMI, type II White count 20,000, troponin 9973, 9973; lactic acid elevated EKG personally reviewed showed sinus rhythm suggest previous anterior AK minor ST depression laterally similar to 10/11/2023 [...] hospitalized with COVID showed ejection fraction 35% byreport which was global dysfunction Outpatient plan for [...] for further details. Asked to evaluate Enoc Armando for NSTEMI History of Present Illness: Enoc Armando is a 77 y.o. male presenting with complaints of dyspnea. He had been over 3 weeks testing positive for COVID and diagnosed with pneumonia been treated with 2 courses of oral antibiotics and steroids. When testing positive initially he was hospitalized at [facility] on BiPAP. Communication is a bit difficult [...] Information: I have reviewed the patient's allergies. Yqjhgda-rke-lec reductase inhibitors Home Medications: Outpatient Medications as of 11/27/2023 Medication Sig acetaminophen (Tylenol Arthritis Pain) 650 MG CR tablet Take 1 (one) tablet (650 mg total) by mouthevery 8 (eight) hours as needed for pain [...] unit/mL (3 mL) InPn Inject 14 (fourteen) Unitsunder the skin nightly . insulin lispro 100 [...] x 5/32 Ndle Use as directed 4x dailyDX code E10.65 . Review of Systems: Pertinent [...] obvious murmurs gallops or rubs. There are nocarotid bruits Abdomen soft nontender Extremities no cyanosis, no edema noted. Neurologic alert and oriented x3 with no gross neurologic defects identified Psychiatric appropriate mood and affect. Intake/Output last 3 shifts: No intake/output data recorded. Laboratory and Additional Data Reviewed: Results from last 7 days Lab Units 11/27/23 0326 TROPONIN I ng/L 9,973* Results from last 7 days Lab Units 11/27/2353911/27/23 03311/27/23 0326 SODIUM mmol/L 138 < > 136 [...] Results from last 7 days Lab Units 11/27/2353911/27/23 03311/27/23 0326 SODIUM mmol/L 138 < > 136 POTASSIUM mmol/L 4.0 < > 4.6 CHLORIDE mmol/L 108 < > 107 BUN mg/dL -- -- 42* CREATININE mg/dL -- -- 2.24* GLUCOSE mg/dL 544* < > 523* CALCIUM mg/dL -- -- 8.9 TSH mcIU/mL -- -- 0.35 < > = values in this interval not displayed. Results from last 7 days Lab Units 11/27/2353911/27/23 03311/27/23 0326 WBC K/mcL -- -- 23.69* HGB g/dL [...] patient. No problems updated. Patient Name: Enoc Armando Admit Date: [id number] MR #: [id number] : 1945 Physicians: Ryley Jeter MD (Family); Ger Bansal DO (Referring) Julia Parker MD documented in this [id number] History and physical note* Norma Geiger CNP - 11/27/2023 3:12 AM EST [facility] HISTORY AND PHYSICAL -- [facility] Patient Name: Enoc Armando : 1945 MR #: [id number] Admit Date: 11/27/2023 Physicians: Ryley Jeter MD (Family); Ger Bansal DO (Referring) Enoc Armando is a 77 y.o. male patient of Ryley Jeter MD with history of HTN, HLD, DM Type I, CKD, COPD, chronic hypoxemic respiratory failure who presented to [facility] with respiratory distress . Severe Sepsis Present on admission: yes Etiology: Pneumonia SIRS criteria: Respiratory rate greater than 20 or PACO2 less than 32mmHg, WBC greater than 12,000,less than 4,000, or greater than 10% bands [...] DKA protocol. Consult endocrinology, DM education, and staffing manager Essential Hypertension Dyslipidemia Continue amlodipine, metoprolol, ezetimibe Residence prior to admission: house or apartment Was patient transferred from outlying hospital or ED no Quality Measures DVT Prophylaxis: heparin gtt Osborne Catheter: absent Medication Reconciliation: Verified Risk variables present on admission: Non-invasive Mechanical Ventilation , Acute Respiratory Failure, AMI, NSTEMI, CHF, and Chronic Kidney Disease. Please see assessment and plan for further details. Estimated Date of Discharge greater than 2 midnights Code Status Full Code; code status verified on 11/27/2023 with patient (capacity intact) Chief Complaint respiratory distress History of Present Illness Enoc Armando is a 77 year old male patient of Ryley Jeter MD, who presented to [facility] with respiratory distress. The patient states that [...] discomfort with associated diaphoresis. On arrival to [facility], he was placed on NIPPV with improvement [...] Information I have reviewed the patient's allergies. Zoysqpb-kuw-lhz reductase inhibitors Home Medications Home medications were [...] mood and affect Associated attestation - Cintia Benitez MD - 11/27/2023 3:27 PM EST [facility] NOTE ADDENDUM I saw and examined the patient independently of the SERENA . Labs, medications, imaging and other studies were reviewed. I agree with history, physical examination findings, medical decision making and the assessment/plan with additions as noted in my documentation below. HPI Enoc Armando is a 77 y.o. male patient of Ryley Jeter MD with history of HTN, HLD, DM Type I, CKD, COPD, chronic hypoxemic respiratory failure who presented to [facility] with respiratory distress . Physical Examination General [...] COVID -Appreciate ID input documented in this [id number] Emergency department Note* Ger Bansal DO - 11/26/2023 9:13 PM ESTAssociated Order(s): Critical Care HPI Chief Complaint Patient presents with Respiratory Distress Pt comes in for difficulty breathing. Pt states that he was dx with a viral lung infection 1 wk ago and placed on a steroid. Pt had covid 1 month ago and was admitted for 1 wk at this facility. 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 EMS reports an O2 level in the low 80s on arrival. Pt was placed on Cpap by them. Pt was 88% on room air in the room. Pt placed on Bipap by RT. Pt is sweating and states he is having chest heaviness. 77-year-old male presents with dyspnea and tachypnea via ambulance. states that he was treatedfor pneumonia 3 weeks ago and has subsequently [...] of some moderate diaphoresis over the last severaldays. No nausea or vomiting. Patient minimally improved on BiPAP. Patient was given IV antibiotics including Zosyn and vancomycin. Patient's initial troponin was quite elevated over 2000 with a repeat over 3000. I did ask the patient if he had a baseball club manager and he said yes. Patient sees Dr. Small at [place] and is scheduled to have a stress test next week. Patient has denied any chest pain his entire time here. I did speak to the baseball club manager on-call Dr. Parker and she agreed with a dose of IV Lasix and starting the patient on heparin which will be done. Patient is improved at present but we will continue to monitor the patient until a bed becomes available at [place]. The patient has been accepted by the [...] History Past Medical History: Diagnosis Date Diabetes ([facility]) History reviewed. No pertinent surgical history. Family [...] performed using a different testing methodology at [facility] than at other [facility]. Direct result comparisons should only [...] is performed using different testing methodology at [facility] than at other [facility]. Direct result comparisons should only [...] performed using a different testing methodology at [facility] than at other [facility]. Direct result comparisons should only [...] diagnostic nucleic acid amplification test for the detectionof methicillin-resistant Staphylococcus aureus (MRSA) DNA directly from [...] Course & MDM ED Course as of 11/27/23105Nov 26, 2023 214 Twelve-lead EKG interpreted by myself at 2120 1 sinus tachycardia at 113 2 left axis deviation3 nonspecific ST-T wave changes [MS] 2249 Troponin I, High Sensitivity(!!): 3,473 [MS] ED Course User Index [MS] Ger Bansal, Diagnoses as of 11/27/23105 NSTEMI (non-ST elevated [...] Ghassan Tovar 11/26/2023 10:02 PM Dictation workstation: [id number] Medical Decision Making Patient will be transferred in stable condition to [facility] in [place]. Procedure Critical Care Performed by: Ger Bansal DO Authorized by: Ger Bansal DO Critical care provider statement: Critical care [...] with: accepting provider at another facility Ger Bansal DO 11/27/23 0119 documented in this [facility] Work Phone: 1(372) 251-644701-26-2024 Physician Emergency department Note* Ger Bansal DO - 11/26/2023 9:13 PM ESTAssociated Order(s): Critical Care HPI Chief Complaint Patient presents with Respiratory Distress Pt comes in for difficulty breathing. Pt states that he was dx with a viral lung infection 1 wk ago and placed on a steroid. Pt had covid 1 month ago and was admitted for 1 wk at this facility. 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 EMS reports an O2 level in the low 80s on arrival. Pt was placed on Cpap by them. Pt was 88% on room air in the room. Pt placed on Bipap by RT. Pt is sweating and states he is having chest heaviness. 77-year-old male presents with dyspnea and tachypnea via ambulance. states that he was treatedfor pneumonia 3 weeks ago and has subsequently [...] of some moderate diaphoresis over the last severaldays. No nausea or vomiting. Patient minimally improved on BiPAP. Patient was given IV antibiotics including Zosyn and vancomycin. Patient's initial troponin was quite elevated over 1999 with a repeat over 3000. I did ask the patient if he had a baseball club manager and he said yes. Patient sees Dr. Small at [place] and is scheduled to have a stress test next week. Patient has denied any chest pain his entire time here. I did speak to the baseball club manager on-call Dr. Parker and she agreed with a dose of IV Lasix and starting the patient on heparin which will be done. Patient is improved at present but we will continue to monitor the patient until a bed becomes available at [place]. The patient has been accepted by the [...] Past Medical History: Diagnosis Date Diabetes (CMS/HCC) History reviewed. No pertinent surgical history. Family History Family history unknown: Yes Social History Tobacco Use Smoking status: Every Day Types: Cigarettes Smokeless tobacco: Never Substance Use Topics Alcohol use: Never Drug use: Never Physical Exam ED Triage Vitals Temperature Heart Rate Respirations BP 11/26/23212111/26/23212111/26/23212111/26/232121 36.2 C (97.1 F) (!) 110 (!) 30 123/74 Pulse Ox Temp Source Heart Rate Source Patient Position 11/26/23212111/26/23212111/26/232121 01/26/24 2122 100 % Temporal Monitor Sitting BP Location [...] performed using a different testing methodology at [facility] than at other [facility]. Direct result comparisons should only [...] is performed using different testing methodology at [facility] than at other [facility]. Direct result comparisons should only [...] performed using a different testing methodology at [facility] than at other [facility]. Direct result comparisons should only [...] diagnostic nucleic acid amplification test for the detectionof methicillin-resistant Staphylococcus aureus (MRSA) DNA directly from [...] Course & MDM ED Course as of 11/27/23105Nov 26, 2023 2142 Twelve-lead EKG interpreted by myself at 2120 1 sinus tachycardia at 113 2 left axis deviation3 nonspecific ST-T wave changes [MS] 2249 Troponin I, High Sensitivity(!!): 3,473 [MS] ED Course User Index [MS] Ger Bansal DO Diagnoses as of 11/27/23105 NSTEMI (non-ST [...] Ghassan Tovar 11/26/2023 10:02 PM Dictation workstation: [id number] Medical Decision Making Patient will be transferred in stable condition to [facility]. Procedure Critical Care Performed by: Ger Bansal DO Authorized by: Ger Bansal DO Critical care provider statement: Critical care [...] with: accepting provider at another facility Ger Bansal DO 11/27/23 0119 [facility] Work Phone: 1(129) 127-576901-02-2024 History of Present illness Narrative* Mary Vargas MD - 11/02/2023 4:50 PM EST Patient called and reported that he needs Humalog Rx changed due to formulary change. Rx mailed forAdmelog Solostar 15 ml, 11 refills. CD documented in this [id number] History of Present illness Narrative* Woo Small MD - 10/21/2023 9:00 AM EST General Cardiology New Patient Clinic Consult [facility], Heart & Vascular 10/21/2023 Woo Small MD [address] [place] [address] Medical Office [facility] [address] Patient: Enoc Armando Date of : 1945 (77 y.o.) Referring Provider: Mary Vargas MD PCP: Ryley Jeter MD Date of [...] in about 6 months (around 04/21/2024). Woo Small MD, [facility] Non-Invasive Cardiology [facility] P:[phone] F:[phone] History of Present Illness: Enoc Armando is a 77 y.o. man with a past medical history of insulin-dependent diabetes for 30 years, history of tobacco use, recent COVID infection with systolic dysfunction ejection fraction ranging from 35 to 45% who presents today to establish care. Patient states that he was critically ill and[facility] at [facility], on BiPAP. Prior to hospitalization patient denied [...] 25.50 Types: Cigarettes Smokeless Tobacco Never Allergies: Yxaerpc-lob-arb reductase inhibitors All of the information has [...] (5 mg total) by mouth daily ., Disp:, Rfl: metoprolol succinate (TOPROL-XL) 25 MG 24 [...] appropriate conversation Cardiovascular Studies: Echocardiogram reviewed from [facility], 10/11/2023 moderately decreased ejection fraction estimated at [...] Total Cholesterol: 156 mg/dL documented in this [id number] Instructions* Patient Instructions* Luisa Easley RN - 10/21/2023 8:54 AM EST How to Contact your Care Team: Provider: Dr. Woo Small MD Clinic Nurse: Luisa Easley, RN REFILLS: When in need for refills please call your care team or the office at [phone]. Please include medication name, pharmacy name, and [...] decide if more pictures are needed before youleave. If more are needed you will get another injection of nuclear medicine and this will take an additional hour. The total time for this test is 3-4 hours. There are medications that interfere with this test. You may be instructed to hold medications. If so that will be listed here: If you have any further questions please contact your care team or [phone]. documented in this [id number] Nurse Note* Moody Gorman RN - 10/13/2023 7:25 PM EST Pt IVs removed intact, home O2 has just been delivered and family given instruction by [employer]. Pt leaving by wheelchair to discharge doors, daughter driving. [facility]2023 Nurse Note* Moody Gorman RN - 10/13/2023 7:25 PM EST Pt IVs removed intact, home O2 has just been delivered and family given instruction by [employer]. Pt leaving by wheelchair to discharge doors, daughter driving. * Geni Lynne RN - 10/13/2023 3:56 PM EST Discharge instructions reviewed with pt. Printed and verbal education given on covid, chf, and homeoxygen use/safety. Pt verbalized understanding of all instructions. Walker rx written by dr rivera. Awaiting home oxygen set up. * Moody Gorman RN - 10/13/2023 12:27 PM EST Pt is AAO. He is using his call light today when he wants to use the bathroom. He has had loose stools, but less frequent. * Moody Gorman RN - 10/12/2023 5:25 PM EST Pt is alert to situation at this time and able to explain his diagnosis, but still impulsive when moving and unsteady. * Moody Gorman RN - 10/12/2023 4:42 PM EST Pt continues to try and leave the bed and chair without his call light. When asked what he needs orwhere he wants to go, pt is unable to articulate his motivation except the general desire to move around. Repeated re-education is not working. * Moody Gorman RN - 10/12/2023 3:45 PM EST Answered chair alarm. Pt is becoming increasingly confused and restless in general. He is aware of himself and other people, but is becoming impulsive in getting out of bed or his chair. Pt ambulatedto the bathroom, O2 increased to 5L for movement per RT. Pt assisted back to bed, bed alarm activated. * Moody Gorman RN - 10/12/2023 8:00 AM EST Pt is AAO, uses his call light appropriately. Pt currently on RA. Pt c/o weakness in his legs, but is able to sit up at the edge of the bed and walk with a walker to lean on for stability. * Geni Wall RN - 10/11/2023 10:00 AM EST , Alice ([phone]), called and requesting and update. Update provided. She is Enoc's POA and requests in the event of cardiac he receive CPR and life sustaining medications. She is unsure if she wants him intubated and wants more time to think about it. She reported she will be visiting Enoc today around 11am. * Zoila Mota RN - 10/11/2023 6:22 AM EST At 0545 pt pushed his call light [...] HR 112, RR 24. documented in this [facility] Work Phone: 1(938) 240-661312-13-2023 Nurse Note* Geni Lynne RN - 10/13/2023 3:56 PM EST Discharge instructions reviewed with pt. Printed and verbal education given on covid, chf, and homeoxygen use/safety. Pt verbalized understanding of all instructions. Walker rx written by dr rivera. Awaiting home oxygen set up. [facility]2023 Hospital Discharge instructions* Discharge Instr - Other Orders* Geni Lynne RN - 10/13/2023 3:38 PM EST Images from the original note were not included. COVID-19 Discharge Instructions About this topic Coronavirus disease 2019 is also known as COVID-19. It is caused by a virus called SARS-associated coronavirus (SARS-CoV-2). The signs of COVID-19 most often start 4 to 5 days after you have been infected. In some people, itcan take up to 2 weeks to show signs. Others never show signs of the infection. You may have a cough, fever, shaking chills, and it may be hard to breathe. You may be very tired, have muscle aches, aheadache, or sore throat. Some people have an [...] best ways to keep you healthy and slowthe spread of the virus. People age 12 [...] People with COVID-19 must isolate themselves. You canstart to be around others when your doctor says it is safe to do so. What care is needed at home? Ask your doctor what you need to do when you go home. Make sure you ask questions if you do not understand what the doctor says. If the doctor prescribed medicines to treat COVID-19, be sure to follow all instructions for takingthem. Drink lots of water, juice, or broth [...] a cloth mask on top of a d isposable mask. If other people have to be in the same room or vehicle with you, they should wear amask also. Practice social distancing. Try to stay [...] have a fever and if your symptoms areimproving. In some cases, you may need to self-isolate until you have a negative test (showing thatthe virus is no longer in your body). [...] after you are sick. This is why itis important to stay in a separate room, [...] 10 total days have passed or until youhave 2 negative COVID tests 48 hours apart. [...] that may apply to a specific patient. Itis not intended to be medical advice or [...] or approved for treating a specific patient. [employer] and its affiliatesdisclaim any warranty or liability relating to this information or the use thereof. The use of thisinformation is governed by the Terms of Use, available at https://www.[employer].Et3arraf/en/know/xrlvpein-qevruhhtdahyx-rucks Copyright 2022 [employer] and its affiliates and/or licensors. All rights reserved. Oxygen Therapy Discharge Instructions, Adult About this topic Your body needs oxygen to work the right way. There is some oxygen in the air around us that goes into our lungs and makes normal levels of oxygen in the blood. Some people need more oxygen than whatis in the air around us to breathe [...] An electric machine filters out other gases andkeeps just the oxygen. If you have this [...] attached to the mask is connected to theoxygen tank. You may need a mask if [...] an amount of flow like 2 or 3liters per minute. Or your doctor may order [...] used. These work well for activities outside yourhome. What problems could happen? Dry or stuffy [...] you were just told. This helps to makesure the staff has covered each thing clearly. It also helps to explain things that may have been abit confusing. Before going home, make sure you [...] that may apply to a specific patient. Itis not intended to be medical advice or [...] or approved for treating a specific patient. [employer] and its affiliatesdisclaim any warranty or liability relating to this information or the use thereof. The use of thisinformation is governed by the Terms of Use, available at https://www.[employer].com/en/know/otytpcie-zfybsgcbqsvue-datsb Copyright 2022 [employer] and its affiliates and/or licensors. All rights [...] your scale is on a hard surface, noton carpet. Your doctor will tell you when you should call based on how much weight you gain in a day or over a week. Take your notebook to your doctor on your next visit. What follow-up care is needed? Your condition needs to be watched closely. Your doctor may ask you to make visits to the office tocheck on your progress. Be sure to keep [...] Do not take any other prescription drugs, rzeg-yop-xvvnmdd (OTC) drugs, herbals, or diet aids without [...] diet are needed? Ask your doctor or staffing manager what diet is best for you. The [...] sodium is in foods. Lowering your salt intakewill help control some of your symptoms. When [...] that may apply to a specific patient. Itis not intended to be medical advice or [...] or approved for treating a specific patient. [employer] and its affiliatesdisclaim any warranty or liability relating to this information or the use thereof. The use of thisinformation is governed by the Terms of Use, available at https://www.[employer].com/en/know/ufbnkxfh-gklcmhuqqbmsi-mjrfu Copyright 2022 [employer] and its affiliates and/or licensors. All rights reserved. documented in this [facility] Work Phone: [phone]) 583-871512-13-2023 Miscellaneous Notes* Documentation Clarification Note - Vera Mari MD - 10/13/2023 3:06 PM EST PATIENT: ENOC ARMANDO : 1945 ADMIT DATE: 10/11/2023 1:08 AM DISCH DATE: RESPONDING PROVIDER #: [id number] PROVIDER RESPONSE TEXT: Sepsis with associated respiratory [...] ED via EMS from his home secondary to2-3-day history fever, chills, cough. States that he is also developed some shortness of breath forthe past 24 hours. Clinical Indicators: H and p documents Patient was found to have COVID-19 pneumonia associated with sepsis [tachypnea, tachycardia, hypoxia], hypertensive emergency, hyperglycemia, and elevated troponin. Foil Stamp Operator consult documents Acute hypoxemic respiratory failure. Treatment: [...] by: VERA RIVERA MD 10/13/2023 3:05 PM * Care Plan - Moody Gorman RN - 10/12/2023 8:00 AM EST The patient's goals for the shift include The clinical goals for the shift include Blood sugar will return to normal limits by the end of theshift Over the shift, the patient did not make progress toward the following goals. Barriers to progression include acuteness of illness. Recommendations to address these barriers include repeated re-orientation. * Care Plan - Jody Ball RN - 10/12/2023 5:59 AM EST The clinical goals for the shift include Blood sugar will return to normal limits by the end of theshift Over the shift, Pt tolerated BIPAP well. No signs of respiratory distress. * Care Plan - Vera Mari MD - 10/11/2023 11:49 AM EST Patient's reviewed. Currently on 5 L of oxygen by nasal cannula, sitting in bed. wants him to be full code with DNI. Continue with current management. documented in this [facility] Work Phone: [phone]) 338-258912-13-2023 Note* Documentation Clarification Note - Vera Mari MD - 10/13/2023 3:06 PM EST PATIENT: ENOC ARMANDO : 1945 ADMIT DATE: 10/11/2023 1:08 AM DISCH DATE: RESPONDING PROVIDER #: [id number] PROVIDER RESPONSE TEXT: Sepsis with associated respiratory [...] ED via EMS from his home secondary to2-3-day history fever, chills, cough. States that he is also developed some shortness of breath forthe past 24 hours. Clinical Indicators: H and p documents Patient was found to have COVID-19 pneumonia associated with sepsis [tachypnea, tachycardia, hypoxia], hypertensive emergency, hyperglycemia, and elevated troponin. Foil Stamp Operator consult documents Acute hypoxemic respiratory failure. Treatment: [...] by: VERA RIVERA MD 10/13/2023 3:05 PM [facility] Work Phone: [phone] 413-302512-13-2023 History of Present illness Narrative* JENNIFER Almanza - 10/13/2023 2:47 PM EST SW spoke to Pt's via phone, Pt's [...] they were given at admission. Denied any concernsabout meeting Pt's health care needs at home, [...] services. No further CT/SW assistance needs anticipated. * Janice Brasher, PT - 10/13/2023 12:38 PM EST Physical Therapy Physical Therapy Evaluation Patient Name: Enoc Armando Today's Date: 10/13/2023 Time Calculation Start Time: [...] Prior Function Per Pt/Caregiver Report Level of [place]: Independent with ADLs and functional transfers, Independent [...] length Comments/Distance (ft) 1: 88ft Outcome Measures: [facility] Basic Mobility Turning from your back to [...] 1 Start: 10/13/23 Expected End: 10/26/23 Enoc Armando will be independent with bed mobility for supine to and from sitting EOB without useof rail PT Goal 2 Start: 10/13/23 Expected End: 10/26/23 Enoc Armando will transfer sit to and from stand and maintain balance indep PT Goal 3 Start: 10/13/23 Expected End: 10/26/23 Enoc Armando will ambulate 100 ft level surface, good balance, steady Indep PT Goal 4 Start: 10/13/23 Expected End: 10/26/23 Patient will tolerate 30 min PT session wihtout fatigue Education Documentation No documentation found. Education Comments No comments found. * Ayanna Albert DO - 10/13/2023 11:06 AM EST Enoc Armando is a 77 y.o. male on day [...] be stopped as well Ayanna Albert DO * Moira Hobson OT - 10/13/2023 10:39 AM EST Occupational Therapy Evaluation Patient Name: Enoc Armando Today's Date: 10/13/2023 Time Calculation Start Time: [...] arrival. Cleared for OT. RN reported pt currentlyon 1L O2, recommended increased to 2L with [...] Bathroom Equipment: None Prior Function: Level of [place]: Independent with ADLs and functional transfers, Independent [...] Function: Gross Grasp: Functional Coordination: Functional Outcome Measures:[facility] Daily Activity Putting on and taking off [...] assistance. (Progressing) Start: 10/13/23 Expected End: 10/27/23 * Phylicia Reyes APRN-AUTO CRANE DRIVER, DNP - 10/13/2023 10:18 AM EST Subjective Data: Patient examined and denies any chest pain/pressure/discomfort, palpitations, worsening SOB, dizziness, or lower extremity edema. He does not currently follow with a Molder Inflated Ball. Overnight Events: None Objective Data: Last Recorded [...] result verified on 10/11/2023 0209 on specimen/case [id number] called with component [facility] for procedure Troponin I, High Sensitivity, [...] 13-18 <7.5 7-12 <8.0 0- 6 7.5-8.5 [employer]. Diabetes Care 33(S1), Nov 2009. 02/12/2023 08:57 AM 7.7 % Final Comment: Diagnosis of Diabetes-Adults Non-Diabetic: < or = 5.6% Increased risk for developing diabetes: 5.7-6.4% Diagnostic of diabetes: > or = 6.5% . Monitoring of Diabetes Age (y) Therapeutic Goal (%) Adults: >18 <7.0 Pediatrics: 13-18 <7.5 7-12 <8.0 0- 6 7.5-8.5 [employer]. Diabetes Care 33(S1), Nov 2009. [...] without swelling or lesions. Hearing intact. Nares arepatent bilaterally. Moist mucous membranes. Cardiovascular: heart rate [...] daily. Cannot start Entresto at this time givenpatient is on lisinopril and will need a 3 day washout period. -Daily weights -Cardiac diet -Patient agreeable to follow up with us in the outpatient setting; please set up appointment beforedischarge Carotid artery disease: -Recent carotid duplex in [...] regarding the patient's care. CULLEN Huff DNP * Delmar Mcgowan RRT - 10/13/2023 9:20 AM EST Home O2 assessment: pt. Placed on room air at rest spo2 89-94%. Pt walked on room air spo2 to 85% after 32 min. Pt placed on 2L NC spo2 stayed at 93% for remainder of walk. Walked for over 7.5 min. For home O2 needs pt requires room air at rest and 2L with activity * Taylor Gamez RDN, NICOLE - 10/13/2023 9:00 AM EST Nutrition Assessment Note Nutrition Assessment Reason for Assessment Reason for Assessment: Dietitian discretion (IDDM/Hyperglycemia/ICU) History: Food and Nutrient History Energy Intake: Poor < 50 % Food and Nutrient History: resident asleep x RD visits; food/fluid preferences obtained by phone bydietary staff to enc po intakes, especially fluids; 06/21 office visit history review of BG, home BGmonitoring, meds, labs, weight diet/MD recommendations and will [...] Assessment Information (1): baseline creat 1.6-1.9 per leaf coverer; A1C 7.4 09/27, 7.6 06/11l Nutrition Diagnosis 2: Inadequate energy intake Diagnosis [...] Follow-Up Needed?: Dietitian to reassess per policy * TATIANA Jaime - 10/12/2023 4:50 PM EST Pt reviewed during Care Rounds today and he is not ready for discharge; hospitalist is recommendingpossible SNF and has ordered PT and OT- eval's not yet completed. SW reviewed chart- pt is becomingconfused and anxious today and requiring more oxygen with activity. Attempted to call to discuss the discharge plan- no answer and voicemail left. Care Transitions will continue to follow. TATIANA Jaime * Ayanna Albert DO - 10/12/2023 12:22 PM EST Enoc Armando is a 77 y.o. male on day [...] closely Transfer to floor Ayanna Albert DO * Tyrone Zimmerman MD - 10/12/2023 11:42 AM EST Subjective Data: Patient reports feeling well, no [...] result verified on 10/11/2023 0209 on specimen/case [id number] called with component [facility] for procedure Troponin I, High Sensitivity, [...] 13-18 <7.5 7-12 <8.0 0- 6 7.5-8.5 [employer]. Diabetes Care 33(S1), Nov 2009. 02/12/2023 08:57 AM 7.7 % Final Comment: Diagnosis of Diabetes-Adults Non-Diabetic: < or = 5.6% Increased risk for developing diabetes: 5.7-6.4% Diagnostic of diabetes: > or = 6.5% . Monitoring of Diabetes Age (y) Therapeutic Goal (%) Adults: >18 <7.0 Pediatrics: 13-18 <7.5 7-12 <8.0 0- 6 7.5-8.5 [employer]. Diabetes Care 33(S1), Nov 2009. [...] Normal mood and affect Assessment/Plan Mr. Enoc Armando is a 77 y.o. every day smoker diabetic male being consulted by the Cardiology team for elevated troponin. Patient with past medical history significant for insulin-dependent diabetes, hypertension, diabetic neuropathy, chronic kidney disease with a baseline creatinine around 1.8,arthritis and smoking. Came to ED [facility] 10/11/2023 complaining of shortness of breath with cough and also having fevers and chills. He states that has been having SOB, cough, fever, chills,weaknoss, headache, body aches for the past 2-3 days. He denies chest pain, palpitations, leg edema, lightheadedness, orthopnea, paroxysmal nocturnal dyspnea or syncope. EKG showing sinus tachycardiawith non- specific ST-T segment changes and signs of old [...] Clean;Dry;Intact 10/12/23 08 Dressing Status Clean;Dry;Occlusive 10/12/23 0800 Number of days: 1 Code Status: Full Code Tyrone Zimmerman MD * Vera Mari MD - 10/12/2023 11:17 AM EST Enoc Armando is a 77 y.o. male on day [...] on 10/11/2023 6:18:47 PM Transthoracic Echo (TTE) [place] [address] [phone], TRANSTHORACIC ECHOCARDIOGRAM REPORT Patient Name: ENOC ARMANDO Reading Physician: [id number] Jose Enrique Molina MD Study Date: 10/11/2023 Ordering Provider: [id number] VERA RIVERA MRN/PID: [id number] Fellow: Nurse: Jana See RN Date of /Age: 2 1945 / 77 years Music Writer: Cecilio Gabriel RDCS Gender: M Additional Staff: Height: 170.18 cm Admit Date: Weight: 71.67 kg Admission Status: Inpatient - Routine BSA: 1.83 m2 Department Location: [address]-ICU Blood Pressure: 141 /71 mmHg Study Type: TRANSTHORACIC ECHO (TTE) COMPLETE Diagnosis/ICD: Acute on chronic systolic (congestive) heart failure (CHF)-I50.23 CPT Codes: Echo Complete w Full Doppler-36675 Study Detail: The following Echo studies were [...] well visualized. The pulmonic valve regurgitation was notwell visualized. Pericardium: There is no pericardial effusion [...] LA Area A2C: 16.2 cm2 LA Major [place] A4C: 5.3 cm LA Major [place] A2C: 5.0 cm LA Volume Index: 23.9 ml/m2 LA Vol A4C: 43.7 ml LA Vol A2C: 43.3 ml LV SYSTOLIC FUNCTION BY 2D PLANIMETRY (MOD): Normal Ranges: EF-A4C View: 45.6 % (>=55%) EF-A2C View: 40.9 % EF-Biplane: 44.2 % AORTIC VALVE: Normal Ranges: LVOT Diameter: 1.80 cm (1.8-2.4cm) RIGHT VENTRICLE: RV Basal 3.49 cm RV Mid 2.45 cm RV Major 7.8 cm [id number] Jose Enrique Molina MD Electronically signed on 10/11/2023 at 9:43:19 AM Final XR chest 1 view Narrative: Interpreted By: Kahlil Fagan, STUDY: XR CHEST 1 VIEW; 10/11/2023 1:30 am INDICATION: Signs/Symptoms:Cough. COMPARISON: Chest radiograph 11/04/2012 ACCESSION NUMBER(S): [id number] ORDERING CLINICIAN: AURY ROUSE FINDINGS: SUPPORT DEVICES: [...] Kahlil Fagan 10/11/2023 1:33 AM Dictation workstation: [id number] Physical Exam Constitutional: Appearance: Normal appearance. HENT: [...] hydrochlorothiazide. Strict ins and outs. Daily weights. Willset up with cardiology as outpatient. Continue with IV antibiotics, Rocephin and Zithromax. Continue with IV dexamethasone, DuoNebs, oxygen supplement as required. Dc'd insulin drip because of the low blood sugar, started on sliding scale insulin. A1c 7.4 appreciate chief of police input. Oxygen as tolerated, currently liters. PT, OT consult for generalized weakness. Vitamin D, zinc DVT prophylaxis on heparin. CODE STATUS full. Disposition in 24 to 48 hours. Total time spent 35 minutes. Vera Rivera MD * Consuelo Fischer RN - 10/11/2023 2:04 PM EST 10/11/23 8136 Discharge Planning Living Arrangements Spouse/significant other Support [...] to pay the mortgage or rent on time?N In the last 12 months, how many places have you lived? 1 In the last 12 months, was there a time when you did not have a steady place to sleep or slept in ashelter (including now)? N Transportation Needs In the past 12 months, has lack of transportation kept you from medical appointments or from getting medications? no In the past 12 months, has lack of transportation kept you from meetings, work, or from getting things needed for daily living? No Patient Choice Provider Choice list and CMS website (https://medicare.gov/care-compare#search) for post-acute Quality and Resource Measure Data [...] with his at discharge to there [address] [facility] [address]. He still drives and he ambulates with a cane. No further needs at this time. CT to follow. Consuelo Fischer BSN/RN-TCC documented in this [facility] Work Phone: 1(750) 865-509012-13-2023 Hospital course Narrative* Vera Mari MD - 10/13/2023 2:09 PM EST Discharge Diagnosis COVID-19 Acute hypoxemic respiratory failure: [...] Your Medications These medications were sent to [facility] [address] [address] metoprolol succinate XL 25 mg 24 hr tablet These medications were sent to [facility] [address] [place] [address] Hours: 8 AM to 5:30 Mon-Fri, 8 [...] feeling better. Not as short winded anymore. Hehas been feeling sick for the past 3 [...] is being set up with home oxygen. Patientalso was sore chief of police discharged his dexamethasone and antibiotics as cultures seems to be negative. Clinically stable. Patient also had elevated troponin secondary due to above seen by cardiology, Dr. De Dios, started on metoprolol, aspirin initially which which can be changed to 81 mg daily. Jaundice and Zetia also were started. Patient also has seen Dr. Albert, leaf coverer for acute on chronic kidney disease secondary [...] Department Center 02/24/2024 1:45 PM Madie Albert, DISHWASHER PREPARER-AUTO CRANE DRIVER, [facility] [id number] [facility] Dr. Albert, nephrology in [address] De Dios, cardiology in 2 to 4 weeks. Total discharge time 40 minutes. Vera Rivera MD documented in this [facility] Work Phone: 1(574) 200-225912-13-2023 Nurse Note* Moody Gorman RN - 10/13/2023 12:27 PM EST Pt is AAO. He is using his call light today when he wants to use the bathroom. He has had loose stools, but less frequent. [facility] Work Phone: [phone] 709-247612-12-2023 Nurse Note* Moody Gorman RN - 10/12/2023 5:25 PM EST Pt is alert to situation at this time and able to explain his diagnosis, but still impulsive when moving and unsteady. [facility] Work Phone: [phone] 747-271312-12-2023 Nurse Note* Moody Gorman RN - 10/12/2023 4:42 PM EST Pt continues to try and leave the bed and chair without his call light. When asked what he needs orwhere he wants to go, pt is unable to articulate his motivation except the general desire to move around. Repeated re-education is not working. [facility] Work Phone: [phone]) 488-812512-12-2023 Nurse Note* Moody Gorman RN - 10/12/2023 3:45 PM EST Answered chair alarm. Pt is becoming increasingly confused and restless in general. He is aware of himself and other people, but is becoming impulsive in getting out of bed or his chair. Pt ambulatedto the bathroom, O2 increased to 5L for movement per RT. Pt assisted back to bed, bed alarm activated. [facility] Work Phone: 1([phone]) 396-393012-12-2023 Nurse Note* Moody Gorman RN - 10/12/2023 8:00 AM EST Pt is AAO, uses his call light appropriately. Pt currently on RA. Pt c/o weakness in his legs, but is able to sit up at the edge of the bed and walk with a walker to lean on for stability. [facility] Work Phone: 1([phone]) 925-479012-12-2023 Plan of care note* Care Plan - Moody Gorman RN - 10/12/2023 8:00 AM EST The patient's goals for the shift include The clinical goals for the shift include Blood sugar will return to normal limits by the end of theshift Over the shift, the patient did not make progress toward the following goals. Barriers to progression include acuteness of illness. Recommendations to address these barriers include repeated re-orientation. [facility] Work Phone: [phone] 975-184512-12-2023 Plan of care note* Care Plan - Jody Ball RN - 10/12/2023 5:59 AM EST The clinical goals for the shift include Blood sugar will return to normal limits by the end of theshift Over the shift, Pt tolerated BIPAP well. No signs of respiratory distress. [facility]12-11-2023 Consult note* Tyrone Zimmerman MD - 10/11/2023 6:13 PM ESTAssociated Order(s): Inpatient consult to Cardiology Inpatient consult to Cardiology Consult performed by: Tyrone Zimmerman MD Consult ordered by: Praful Pineda MD Reason for consult: elevated troponin History Of Present Illness: Mr. Enoc Armando is a 77 y.o. every day smoker diabetic male being consulted by the Cardiology team for elevated troponin. Patient with past medical history significant for insulin-dependent diabetes, hypertension, diabetic neuropathy, chronic kidney disease with a baseline creatinine around 1.8,arthritis and smoking. Came to ED [facility] on 10/11/2023 complaining of shortness of breath with cough and also having fevers and chills. He states that has been having SOB, cough, fever, chills,weaknoss, headache, body aches for the past 2-3 days. He denies chest pain, palpitations, leg edema, lightheadedness, orthopnea, paroxysmal nocturnal dyspnea or syncope. EKG showing sinus tachycardiawith non- specific ST-T segment changes and signs of old [...] result verified on 10/11/2023 0209 on specimen/case [id number] called with component [facility] for procedure Troponin I, High Sensitivity, [...] 13-18 <7.5 7-12 <8.0 0- 6 7.5-8.5 [employer]. Diabetes Care 33(S1), Nov 2009. 02/12/2023 08:57 AM 7.7 (A) % Final Comment: Diagnosis of Diabetes-Adults Non-Diabetic: < or = 5.6% Increased risk for developing diabetes: 5.7-6.4% Diagnostic of diabetes: > or = 6.5% . Monitoring of Diabetes Age (y) Therapeutic Goal (%) Adults: >18 <7.0 Pediatrics: 13-18 <7.5 7-12 <8.0 0- 6 7.5-8.5 [employer]. Diabetes Care 33(S1), Nov 2009. [...] Family history unknown: Yes Allergies: Prednisone and Xzljxnn-ixa-qmt reductase inhibitors Inpatient Medications: Scheduled medications Medication [...] Normal mood and affect Assessment/Plan Mr. Enoc Armando is a 77 y.o. every day smoker diabetic male being consulted by the Cardiology team for elevated troponin. Patient with past medical history significant for insulin-dependent diabetes, hypertension, diabetic neuropathy, chronic kidney disease with a baseline creatinine around 1.8,arthritis and smoking. Came to ED [facility] on 10/11/2023 complaining of shortness of breath with cough and also having fevers and chills. He states that has been having SOB, cough, fever, chills,weaknoss, headache, body aches for the past 2-3 days. He denies chest pain, palpitations, leg edema, lightheadedness, orthopnea, paroxysmal nocturnal dyspnea or syncope. EKG showing sinus tachycardiawith non- specific ST-T segment changes and signs of old [...] Code Status: Full Code Tyrone Zimmerman MD [facility] Work Phone: 1([phone]) 363-967712-11-2023 Consult note* Tyrone Zimmerman MD - 10/11/2023 6:13 PM ESTAssociated Order(s): Inpatient consult to Cardiology Inpatient consult to Cardiology Consult performed by: Tyrone Zimmerman MD Consult ordered by: Praful Pineda MD Reason for consult: elevated troponin History Of Present Illness: Mr. Enoc Armando is a 77 y.o. every day smoker diabetic male being consulted by the Cardiology team for elevated troponin. Patient with past medical history significant for insulin-dependent diabetes, hypertension, diabetic neuropathy, chronic kidney disease with a baseline creatinine around 1.8,arthritis and smoking. Came to ED [facility] on 10/11/2023 complaining of shortness of breath with cough and also having fevers and chills. He states that has been having SOB, cough, fever, chills,weaknoss, headache, body aches for the past 2-3 days. He denies chest pain, palpitations, leg edema, lightheadedness, orthopnea, paroxysmal nocturnal dyspnea or syncope. EKG showing sinus tachycardiawith non- specific ST-T segment changes and signs of old [...] result verified on 10/11/2023 0209 on specimen/case [id number] called with component [facility] for procedure Troponin I, High Sensitivity, [...] 13-18 <7.5 7-12 <8.0 0- 6 7.5-8.5 [employer]. Diabetes Care 33(S1), Nov 2009. 02/12/2023 08:57 AM 7.7 (A) % Final Comment: Diagnosis of Diabetes-Adults Non-Diabetic: < or = 5.6% Increased risk for developing diabetes: 5.7-6.4% Diagnostic of diabetes: > or = 6.5% . Monitoring of Diabetes Age (y) Therapeutic Goal (%) Adults: >18 <7.0 Pediatrics: 13-18 <7.5 7-12 <8.0 0- 6 7.5-8.5 [employer]. Diabetes Care 33(S1), Nov 2009. [...] has a past medical history of Diabetes ([facility] Past Surgical History: He has no past surgical history on file. Social History: He reports that he has been smoking cigarettes. He has never used smokeless tobacco. He reports that he does not drink alcohol and does not use drugs. Family History: Family History Family history unknown: Yes Allergies: Prednisone and Vhwjozx-vgr-ohb reductase inhibitors Inpatient Medications: Scheduled medications Medication [...] Normal mood and affect Assessment/Plan Mr. Enoc Armando is a 77 y.o. every day smoker diabetic male being consulted by the Cardiology team for elevated troponin. Patient with past medical history significant for insulin-dependent diabetes, hypertension, diabetic neuropathy, chronic kidney disease with a baseline creatinine around 1.8,arthritis and smoking. Came to ED [facility] on 10/11/2023 complaining of shortness of breath with cough and also having fevers and chills. He states that has been having SOB, cough, fever, chills,weaknoss, headache, body aches for the past 2-3 days. He denies chest pain, palpitations, leg edema, lightheadedness, orthopnea, paroxysmal nocturnal dyspnea or syncope. EKG showing sinus tachycardiawith non- specific ST-T segment changes and signs of old [...] Code Status: Full Code Tyrone Zimmerman MD * Ayanna Albert DO - 10/11/2023 12:13 PM ESTAssociated Order(s): IP CONSULT TO BENCH MOLDER Reason For Consult Acute respiratory failure History Of Present Illness Enoc Armando is a 77 y.o. male presenting with [...] has a past medical history of Diabetes ([facility] Surgical History He has no past surgical history on file. Social History He reports that he has been smoking cigarettes. He has never used smokeless tobacco. He reports that he does not drink alcohol and does not use drugs. Family History Family History Family history unknown: Yes Allergies Prednisone and Xmypnjl-pry-jqy reductase inhibitors Review of Systems A full [...] COVID-19 Ayanna Albert DO documented in this [facility] Work Phone: [phone]) [phone] Consult note* Ayanna Albert DO - 10/11/2023 12:13 PM ESTAssociated Order(s): IP CONSULT TO BENCH MOLDER Reason For Consult Acute respiratory failure History Of Present Illness Enoc Armando is a 77 y.o. male presenting with [...] has a past medical history of Diabetes ([facility] Surgical History He has no past surgical history on file. Social History He reports that he has been smoking cigarettes. He has never used smokeless tobacco. He reports that he does not drink alcohol and does not use drugs. Family History Family History Family history unknown: Yes Allergies Prednisone and Sihrfvx-utl-jcv reductase inhibitors Review of Systems A full [...] procedures Principal Problem: COVID-19 Ayanna Albert DO [facility] Work Phone: [phone]) 496-153712-11-2023 Plan of care note* Care Plan - Vera Mari MD - 10/11/2023 11:49 AM EST Patient's reviewed. Currently on 5 L of oxygen by nasal cannula, sitting in bed. wants him to be full code with DNI. Continue with current management. [facility] Work Phone: [phone] Nurse Note* Geni Wall RN - 10/11/2023 10:00 AM EST , Alice ([phone]), called and requesting and update. Update provided. She is Enoc's POA and requests in the event of cardiac he receive CPR and life sustaining medications. She is unsure if she wants him intubated and wants more time to think about it. She reported she will be visiting Enoc today around 11am. [facility]12-11-2023 Nurse Note* Zoila Mota RN - 10/11/2023 6:22 AM EST At 0545 pt pushed his call light [...] Patient currently sleeping, HR 112, RR 24. [facility] Work Phone: [phone] History and physical note* Praful Pineda MD - 10/11/2023 4:27 AM EST History Of Present Illness Enoc Armando is a 77 y.o. male Who presented to the emergency room for cough, shortness of breath, fever and chills. On presentation, blood pressure 189/75 and then it became 250/111, heart rate 150s, respiratory rate 35, afebrile, saturation oxygen 89% on room air. Pertinent findings on blood workup; glucose 244, creatinine 1.83, BUN 30, BNP 251 and troponin 102 with repeat of 354 D- dimer 1869. ABG showed a pH of 7.36, pCO2 41 and pO2 of 66. Chest x-ray showed diffuse interstitial and scattered hazy opacities. COVID-19 came back positive. Patient was placed on BiPAP and given in the emergency room azithromycin, ceftriaxone, DuoNebs, dexamethasone 10 mg IV, 0.5 mg IV diazepam, 1.25 mg IV V asotec, 20 mg IV Lasix, insulin, IV fluids, and 20 mg IV labetalol and then admitted to the [facility] for further investigation and management. Patient resting comfortably in his bed now. Reports feeling better. Not as short winded anymore. Hehas been feeling sick for the past 3 days. Cough is dry. No chest pain. No palpitations. No nausea or vomiting. Appetite has decreased. ROS 10 systems were reviewed and were negative except for those noted in the history of present illness. Past Medical History Past Medical History: Diagnosis Date Diabetes ([facility]) Pertinent medical history also documented in my [...] Family history unknown: Yes Allergies Prednisone and Ianxmfd-pgn-ucj reductase inhibitors Medications Prior to Admission Medication [...] Straw, Yellow Appearance, Urine Clear Clear Specific Tarrs, Urine 1.014 1.005 - 1.035 pH, Urine 5.0 5.0, 5.5, 6.0, 6.5, 7.0, 7.5, 8.0 Protein, Urine 100 (2+) (N) NEGATIVE mg/dL Glucose, Urine >=500 (3+) (A) NEGATIVE mg/dL Blood, Urine NEGATIVE NEGATIVE Ketones, Urine 5 (TRACE) (A) NEGATIVE mg/dL Bilirubin, Urine NEGATIVE NEGATIVE Urobilinogen, Urine <2.0 <2.0 mg/dL Nitrite, Urine NEGATIVE NEGATIVE Leukocyte Esterase, Urine NEGATIVE NEGATIVE Extra Urine Orosco Tube Result Value Ref Range Extra Tube [...] Signs/Symptoms:Cough. COMPARISON: Chest radiograph 11/04/2012 ACCESSION NUMBER(S): [id number] ORDERING CLINICIAN: AURY ROUSE FINDINGS: SUPPORT DEVICES: [...] Kahlil Fagan 10/11/2023 1:33 AM Dictation workstation: [id number] Assessment/Plan 77-year-old male, smoker, with a past [...] recognition software and may contain errors including spelling,grammar, syntax and misrecognition of what was dictated, that are not fully corrected) Praful Pineda MD [facility] Work Phone: [phone] History and physical note* Praful Pineda MD - 10/11/2023 4:27 AM EST History Of Present Illness Enoc Armando is a 77 y.o. male Who presented to the emergency room for cough, shortness of breath, fever and chills. On presentation, blood pressure 189/75 and then it became 250/111, heart rate 150s, respiratory rate 35, afebrile, saturation oxygen 89% on room air. Pertinent findings on blood workup; glucose 244, creatinine 1.83, BUN 30, BNP 251 and troponin 102 with repeat of 354 D- dimer 1869. ABG showed a pH of 7.36, pCO2 41 and pO2 of 66. Chest x-ray showed diffuse interstitial and scattered hazy opacities. COVID-19 came back positive. Patient was placed on BiPAP and given in the emergency room azithromycin, ceftriaxone, DuoNebs, dexamethasone 10 mg IV, 0.5 mg IV diazepam, 1.25 mg IV V asotec, 20 mg IV Lasix, insulin, IV fluids, and 20 mg IV labetalol and [facility] and management. Patient resting comfortably in his bed now. Reports feeling better. Not as short winded anymore. Hehas been feeling sick for the past 3 [...] Family history unknown: Yes Allergies Prednisone and Oyxscmu-mbs-nbo reductase inhibitors Medications Prior to Admission Medication [...] 36.7 C (98 F), temperature source Oral, resp.rate 24, height 1.715 m (5' 7.5), weight [...] Straw, Yellow Appearance, Urine Clear Clear Specific Tarrs, Urine 1.014 1.005 - 1.035 pH, Urine 5.0 5.0, 5.5, 6.0, 6.5, 7.0, 7.5, 8.0 Protein, Urine 100 (2+) (N) NEGATIVE mg/dL Glucose, Urine >=500 (3+) (A) NEGATIVE mg/dL Blood, Urine NEGATIVE NEGATIVE Ketones, Urine 5 (TRACE) (A) NEGATIVE mg/dL Bilirubin, Urine NEGATIVE NEGATIVE Urobilinogen, Urine <2.0 <2.0 mg/dL Nitrite, Urine NEGATIVE NEGATIVE Leukocyte Esterase, Urine NEGATIVE NEGATIVE Extra Urine Orosco Tube Result Value Ref Range Extra Tube [...] Signs/Symptoms:Cough. COMPARISON: Chest radiograph 11/04/2012 ACCESSION NUMBER(S): [id number] ORDERING CLINICIAN: AURY ROUSE FINDINGS: SUPPORT DEVICES: [...] Kahlil Fagan 10/11/2023 1:33 AM Dictation workstation: [id number] Assessment/Plan 77-year-old male, smoker, with a past [...] recognition software and may contain errors including spelling,grammar, syntax and misrecognition of what was dictated, that are not fully corrected) Praful Pineda MD documented in this [facility] Work Phone: [phone]) 273-506712-11-2023 Emergency department Note* Aury Rouse, DO - 10/11/2023 1:08 AM ESTAssociated Order(s): Critical Care Multiple complaints. This 77-year-old white male presented to the ED via EMS from his home secondary to 2-3-day history fever, chills, cough. States that he is also developed some shortness of breathfor the past 24 hours. He denies any history of nausea, vomiting or diarrhea. He also admits to having headaches and bodyaches and generalized weakness. He denies any ill contacts that he knows of. EMS had treated the patient with an albuterol aerosol prior to arrival to the ED and establish an IV.Patient admits to 68-qzve-jjxh history of cigarette use and currently smokes 1 pack/day. Activity makes his symptoms worse rest helps to some extent. History provided by: EMS personnel and patient certified medical dosimetrist used: No Physical Exam Vitals and nursing note reviewed. Constitutional: General: He is awake. He is in acute distress. Appearance: Normal appearance. He is overweight. He is ill-appearing. HENT: Head: Normocephalic and atraumatic. Right Ear: External ear normal. Decreased hearing noted. Left Ear: External ear normal. Decreased hearing noted. Nose: Congestion and rhinorrhea present. Rhinorrhea is clear. Mouth/Throat: Lips: [place]. Mouth: Mucous membranes are moist. Pharynx: Oropharynx [...] stridor. Examination of the right-lower field reveals decreasedbreath sounds. Examination of the left-lower field reveals [...] virus and/or diagnosis of COVID-19 infection under sec tion 564(b)(1) of the Act, 21 U.S.C. 360bbb-3(b)(1). This assay is an in vitro diagnostic nucleic acid amplification test for the qualitative detection of SARS-CoV-2 from nasopharyngeal specimens andhas been validated for use at [facility]. Negative results do not preclude COVID-19 [...] in ng/mL Fibrinogen Equivalent Units (FEU). Per poolroom table attendant's instructions for use, a value of less than 500 ng/mL (FEU) may help to exclude DVT or PE in outpatients when the assay is used with a clinical pretest probability assessment.([facility] must utilize and document eCalc 'Wells Score [...] performed using a different testing methodology at [facility] than at other [facility]. Direct result comparisons should only [...] performed using a different testing methodology at [facility] than at other [facility]. Direct result comparisons should only [...] is performed using different testing methodology at [facility] than at other [facility]. Direct result comparisons should only [...] Color, Urine Yellow Appearance, Urine Clear Specific Tarrs, Urine 1.014 pH, Urine 5.0 Protein, Urine [...] and has been validated for use at [facility]. Negative results do not preclude Influenza A/B infections, and should not be used as the sole basis for diagnosis, treatment, or other management decisions. IfInfluenza A/B and RSV PCR results are negative, testing for Parainfluenza virus, Adenovirus and Metapneumovirus is routinely performed for [facility] pediatric oncology and intensive care inpatients, and isavailable on other patients by placing an add-on request. RSV PCR - Normal RSV PCR Not Detected Narrative: This assay is an FDA-cleared, in vitro diagnostic nucleic acid amplification test for the detectionof RSV from nasopharyngeal specimens, and has been [...] pediatric oncology and intensive care inpatients at [facility], and is available on other patients by placingan add-on request. LACTATE - Normal Lactate 1.6 Narrative: Venipuncture immediately after or during the administration of Metamizole may lead to falsely low results. Testing should be performed immediately prior to Metamizole dosing. URINALYSIS WITH REFLEX MICROSCOPIC AND CULTURE Narrative: The following orders were created for panel order Urinalysis with Reflex Microscopic and Culture. Procedure Abnormality Status --------- ------ Urinalysis with Reflex M...[[id number]] Abnormal Final result Extra Urine Orosco Tube[[id number]] Final result Please view results for these tests on the individual orders. TROPONIN SERIES- (INITIAL, 1 HR) Narrative: The following orders were created for panel order Troponin I Series, High Sensitivity (0, 1 HR). Procedure Abnormality Status --------- ------ Troponin I, High Sensiti...[[id number]] Abnormal Final result Troponin, High Sensitivi...[[id number]] Abnormal Final result Please view results for these tests on the individual orders. EXTRA URINE OROSCO TUBE Extra Tube Hold for add-ons. BASIC [...] Kahlil Fagan 10/11/2023 1:33 AM Dictation workstation: [id number] Critical Care Performed by: Aury Rouse DO [...] me on the following activities: Development of treatmentplan with patient or surrogate, evaluation of patient's [...] the ED after being treated aerosol treatment withtachypnea at rest. Initial evaluation revealed some and expiratory wheezing. Patient was tachycardic and initially treated with IV fluids reassessment revealed evidence to sound very wet concerning for possible CHF. Chest x-ray revealed evidence of CHF subsequently patient was treated with IV Lasixbut because of patient's renal function I had to double the dose. The patient was then treated withaerosols and an ABG was obtained patient ABG revealed no retention of CO2 with with evidence of comp ensation. The patient continued to have tachypnea and [...] sinus tachycardia 113 bpm with Q waves inthe anterior precordial leads. The MN interval is 148 ms. QRS durations 82 ms. QTc is 455 ms axis is 39 degrees. Diagnoses as of 10/12/23514 COVID-19 Acute respiratory failure with hypoxia (CMS/HCC) Acute congestive heart failure, unspecified heart failure type (CMS/HCC) Pneumonia of both lungs due to infectious organism, unspecified part of lung Aury Rouse DO 10/12/23514 * VANDANA Cosby - 10/11/2023 1:08 AM EST Pt brought in via EMS for fevers and chills. Pt reports being ill for the last 2-3 days. Pt states that he has been having fevers, chills, weakness, fatigue, headaches, body aches with some SOB. Pt was given a breathing treatment in route and states that it did help a little. documented in this [facility] Work Phone: 1(853) 752-272212-11-2023 Emergency department Triage note* VANDANA Cosby - 10/11/2023 1:08 AM EST Pt brought in via EMS for fevers and chills. Pt reports being ill for the last 2-3 days. Pt states that he has been having fevers, chills, weakness, fatigue, headaches, body aches with some SOB. Pt was given a breathing treatment in route and states that it did help a little. [facility] Work Phone: 1(571) 701-511312-11-2023 Physician Emergency department Note* Aury Rouse DO - 10/11/2023 1:08 AM ESTAssociated Order(s): Critical Care Multiple complaints. This 77-year-old white male presented to the ED via EMS from his home secondary to 2-3-day history fever, chills, cough. States that he is also developed some shortness of breathfor the past 24 hours. He denies any history of nausea, vomiting or diarrhea. He also admits to having headaches and bodyaches and generalized weakness. He denies any ill contacts that he knows of. EMS had treated the patient with an albuterol aerosol prior to arrival to the ED and establish an IV.Patient admits to [id number] history of cigarette use and currently smokes 1 pack/day. Activity makes his symptoms worse rest helps to some extent. History provided by: EMS personnel and patient certified medical dosimetrist used: No Physical Exam Vitals and nursing note reviewed. Constitutional: General: He is awake. He is in acute distress. Appearance: Normal appearance. He is overweight. He is ill-appearing. HENT: Head: Normocephalic and atraumatic. Right Ear: External ear normal. Decreased hearing noted. Left Ear: External ear normal. Decreased hearing noted. Nose: Congestion and rhinorrhea present. Rhinorrhea is clear. Mouth/Throat: Lips: [place]. Mouth: Mucous membranes are moist. Pharynx: Oropharynx [...] stridor. Examination of the right-lower field reveals decreasedbreath sounds. Examination of the left-lower field reveals [...] virus and/or diagnosis of COVID-19 infection under sec tion 564(b)(1) of the Act, 21 U.S.C. 360bbb-3(b)(1). This assay is an in vitro diagnostic nucleic acid amplification test for the qualitative detection of SARS-CoV-2 from nasopharyngeal specimens andhas been validated for use at [facility]. Negative results do not preclude COVID-19 [...] in ng/mL Fibrinogen Equivalent Units (FEU). Per poolroom table attendant's instructions for use, a value of less than 500 ng/mL (FEU) may help to exclude DVT or PE in outpatients when the assay is used with a clinical pretest probability assessment.([facility] must utilize and document eCalc 'Wells Score [...] performed using a different testing methodology at [facility] than at other [facility]. Direct result comparisons should only [...] performed using a different testing methodology at [facility] than at other [facility]. Direct result comparisons should only [...] is performed using different testing methodology at [facility] than at other [facility]. Direct result comparisons should only [...] Color, Urine Yellow Appearance, Urine Clear Specific Tarrs, Urine 1.014 pH, Urine 5.0 Protein, Urine [...] and has been validated for use at [facility]. Negative results do not preclude Influenza A/B infections, and should not be used as the sole basis for diagnosis, treatment, or other management decisions. IfInfluenza A/B and RSV PCR results are negative, testing for Parainfluenza virus, Adenovirus and Metapneumovirus is routinely performed for [facility] pediatric oncology and intensive care inpatients, and isavailable on other patients by placing an add-on request. RSV PCR - Normal RSV PCR Not Detected Narrative: This assay is an FDA-cleared, in vitro diagnostic nucleic acid amplification test for the detectionof RSV from nasopharyngeal specimens, and has been [...] pediatric oncology and intensive care inpatients at [facility], and is available on other patients by placingan add-on request. LACTATE - Normal Lactate 1.6 Narrative: Venipuncture immediately after or during the administration of Metamizole may lead to falsely low results. Testing should be performed immediately prior to Metamizole dosing. URINALYSIS WITH REFLEX MICROSCOPIC AND CULTURE Narrative: The following orders were created for panel order Urinalysis with Reflex Microscopic and Culture. Procedure Abnormality Status --------- ------ Urinalysis with Reflex M...[[id number]] Abnormal Final result Extra Urine Orosco Tube[[id number]] Final result Please view results for these tests on the individual orders. TROPONIN SERIES- (INITIAL, 1 HR) Narrative: The following orders were created for panel order Troponin I Series, High Sensitivity (0, 1 HR). Procedure Abnormality Status --------- ------ Troponin I, High Sensiti...[[id number]] Abnormal Final result Troponin, High Sensitivi...[[id number]] Abnormal Final result Please view results for these tests on the individual orders. EXTRA URINE OROSCO TUBE Extra Tube Hold for add-ons. BASIC [...] Kahlil Fagan 10/11/2023 1:33 AM Dictation workstation: [id number] Critical Care Performed by: Aury Rouse DO [...] me on the following activities: Development of treatmentplan with patient or surrogate, evaluation of patient's [...] the ED after being treated aerosol treatment withtachypnea at rest. Initial evaluation revealed some and expiratory wheezing. Patient was tachycardic and initially treated with IV fluids reassessment revealed evidence to sound very wet concerning for possible CHF. Chest x-ray revealed evidence of CHF subsequently patient was treated with IV Lasixbut because of patient's renal function I had to double the dose. The patient was then treated withaerosols and an ABG was obtained patient ABG revealed no retention of CO2 with with evidence of comp ensation. The patient continued to have tachypnea and [...] sinus tachycardia 113 bpm with Q waves inthe anterior precordial leads. The MN interval is 148 ms. QRS durations 82 ms. QTc is 455 ms axis is 39 degrees. Diagnoses as of 10/12/23514 COVID-19 Acute respiratory failure with hypoxia (CMS/HCC) Acute congestive heart failure, unspecified heart failure type (CMS/HCC) Pneumonia of both lungs due to infectious organism, unspecified part of lung Aury Rouse DO 10/12/23514 [facility] Work Phone: 1([phone]) 463-758312-08-2023 History of Present illness Narrative* Mary Vargas MD - 10/08/2023 11:36 AM EST Images from the original note were not included. Patient ID: Enoc Armando is a 77 y.o. male Subjective: HPI: Enoc Armando presents for follow-up of Type 1 diabetes The initial diagnosis of diabetes was made28 years ago in 1994. Disease course has been stable. Mr. Armando is a 77-year-old male patient who presents the office for a follow-up of his type 1 diabetes. Patient's most recent hemoglobin A1c is 7.4%. Patient reports that he does follow adiabetic diet. His weight stable from his last [...] being taken. Patient does not see a chief of party. Eye exam is current. Currently taking: No oral hypoglycemic medications Humalog insulin: 7 units at breakfast; 8 units at lunch; 8-9 units at supper Lantus insulin: 15 units at bedtime Outpatient Medications Marked as Taking for the 10/08/23 encounter (Office Visit) with Mary Vargas MD: amLODIPine (NORVASC) 10 MG tablet, Take [...] surgicalhistory and problem list. Objective: BP (!) 199/66 [...] Type 1 diabetes, under good control Enoc Armando presents for follow-up of Type 1 diabetes Patient is currently managed with: Humaloginsulin: 7 units at breakfast; 8 units at [...] bedside for hypoglycemia at night. 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 Had bilat cataract extraction Dr. Lopez. Sees Dr. Browne in [place] every year routinely.Has blurred vision with low [...] feel that he needs further neurologic evaluation atthis time. Reports falling in the bathtub summer [...] good. Efforts to improve compliance (if necessary) willbe directed at dietary modifications: Limit portion sizes, increased exercise and regular blood sugar monitorin times daily. 4. Follow up: 4 months 5. Record blood sugar readings as instructed. Call if BG consistently <70 or >250. [phone] Continue to check blood sugar 3 times daily. Patient has been checking blood glucoses 3 times daily for the past 90 days. His insurance will notcover 4 checks per day he reports. Patient [...] Panel Hemoglobin A1c Electronically signed by Mary Vargas MD 10/10/23 8:04 PM documented in this [id number] Evaluation + Plan note* Assessment & Plan Note - Ayanna Albert, - 08/25/2023 2:39 PM EDTAssociated Problem(s): CKD (chronic kidney disease) Doing well with DM HTN well controlled Sees Endocrinology. Has Type 1 DM On Statin Not on nephrotoxins [facility] Work Phone: 1([phone]) 170-670510-25-2023 Miscellaneous Notes* Assessment & Plan Note - Ayanna Albert DO - 08/25/2023 2:39 PM EDTAssociated Problem(s): CKD (chronic kidney disease) Doing well with DM HTN well controlled Sees Endocrinology. Has Type 1 DM On Statin Not on nephrotoxins [facility] Work Phone: 1([phone]) 568-446210-25-2023 History of Present illness Narrative* Ayanna Albert DO - 08/25/2023 2:15 PM EDT Subjective States he is feeling well No new issues No complaitns Patient ID: Enoc Armando is a 77 y.o. male who presents [...] Microalbuminuria Dyslipidemia Nicotine Abuse documented in this [facility] Work Phone: 1(675) 740-684604-21-2023 History of Present illness Narrative* Paty Ortega CNP - 02/19/2023 1:14 PM EDT Images from the original note were not included. Patient ID: Enoc Armando is a 77 y.o. male Subjective: HPI: Enoc Armando presents for follow-up of Type 1 diabetes The initial diagnosis of diabetes was made27 years ago in 1994. Disease course has been stable. Mr. Armando is a 76-year-old male patient who presents the office for a follow-up of his type 1 diabetes. Patient's most recent hemoglobin A1c is 7.8%. Patient reports that he does follow adiabetic diet. His weight stable from his last [...] being taken. Patient does not see a chief of party. Eye exam is current. Currently taking: No [...] past surgicalhistory and problem list. Objective: BP 116/83 Pulse [...] diabetes Patient is currently managed with: Humaloginsulin: 10 units at breakfast; 10 units at lunch; 15 units at supper and Lantus 18 units at bedtime . Most recent Hgb A1c is 7.7%. Reports occasional lows in the early AM and during the day. States if he is low in early AM, he often has visual blurring and his assists him with juice or other c arb source. Typically eats a snack if BG <150 at HS. PLAN: See below. 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 Had bilat cataract extraction Dr. Lopez. Sees Dr. Browne in [place] every year routinely. Nephropathy: Positive Creat: 1.09; eGFR: 69 4/6/22 ; Mialb/creat ratio:95 on 03/03/19, patient takes [...] good. Efforts to improve compliance (if necessary) willbe directed at dietary modifications: Limit portion sizes, increased exercise and regular blood sugar monitorin times daily. 4. Follow up: 4 months 5. Record blood sugar readings as instructed. Call if BG consistently <70 or >250. [phone] Continue to check blood sugar 4 times daily. Patient has been checking blood glucoses 3 times daily for the past 90 days. His insurance will notcover 4 checks per day he reports. Patient [...] CNP 02/19/23 10:25 AM documented in this [id number] History of Present illness Narrative* Paty Ortega CNP - 10/19/2022 10:04 AM EST Images from the original note were not included. Patient ID: Enoc Armando is a 76 y.o. male Subjective: HPI: Enoc Armando presents for follow-up of Type 1 diabetes The initial diagnosis of diabetes was made27 years ago in 1994. Disease course has been stable. Mr. Armando is a 76-year-old male patient who presents the office for a follow-up of his type 1 diabetes. Patient's most recent hemoglobin A1c is 7.8%. Patient reports that he does follow adiabetic diet. His weight stable from his last [...] being taken. Patient does not see a chief of party. Eye exam is current. Currently taking: No [...] nightly . pen needle, diabetic (BD Ultra-Fine Joylnn Pen Needle) 32 gauge x 5/32 Ndle, [...] surgicalhistory and problem list. Objective: BP (!) 149/69 [...] diabetes Patient is currently managed with: Humaloginsulin: 7-9 units at breakfast; 9 units at lunch; 12 units at supper and Lantus 18 units at bedtime . Most recent Hgb A1c is 8.1%. Reports occasional lows in the early AM and during the day. States if he is low in early AM, he often has visual blurring and his assists him with juice or other c arb source. Typically eats a snack if BG <150 at HS. PLAN: See below. Reduce lunch and HS insulin. 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 Had bilat cataract extraction Dr. Lopez. Sees Dr. Browne in [place] every year routinely. Nephropathy: Positive Creat: 1.09; [...] good. Efforts to improve compliance (if necessary) willbe directed at dietary modifications: Limit portion sizes, increased exercise and regular blood sugar monitorin times daily. 4. Follow up: 4 months 5. Record blood sugar readings as instructed. Call if BG consistently <70 or >250. [phone] Continue to check blood sugar 4 times daily. Patient has been checking blood glucoses 3 times daily for the past 90 days. His insurance will notcover 4 checks per day he reports. Patient [...] CNP 10/19/22 10:25 AM documented in this [id number] History of Present illness Narrative* Paty Ortega CNP - 06/19/2022 9:45 AM EDT Images from the original note were not included. Patient ID: Enoc Armando is a 76 y.o. male Subjective: HPI: Enoc Armando presents for follow-up of Type 1 diabetes The initial diagnosis of diabetes was made27 years ago in 1994. Disease course has been stable. Mr. Armando is a 76-year-old male patient who presents the office for a follow-up of his type 1 diabetes. Patient's most recent hemoglobin A1c is 8.1%. Patient reports that he does follow adiabetic diet. His weight stable from his last [...] being taken. Patient does not see a chief of party. Eye exam is current. Currently taking: No [...] surgicalhistory and problem list. Objective: BP (!) 213/74 [...] diabetes Patient is currently managed with: Humaloginsulin: 7-9 units at breakfast; 9 units at [...] Reduce lunch and HS insulin. 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 Had bilat cataract extraction Dr. Lopez. Sees Dr. Browne in [place] every year routinely. Nephropathy: Positive Creat: 1.09; [...] labs 8.8.22. Will refer to Dr. Melendez, seenpreviously for kidney stones. Squamous cell Ca removed [...] good. Efforts to improve compliance (if necessary) willbe directed at dietary modifications: Limit portion sizes, increased exercise and regular blood sugar monitorin times daily. 4. Follow up: 4 months 5. Record blood sugar readings as instructed. Call if BG consistently <70 or >250. [phone] Continue to check blood sugar 4 times daily. Patient has been checking blood glucoses 3 times daily for the past 90 days. His insurance will notcover 4 checks per day he reports. Patient [...] in this encounter. Electronically signed by Mary Vargas MD 06/19/22 11:20 PM documented in this [id number] History of Present illness Narrative* Mary Vargas MD - 02/13/2022 12:01 PM EDT Images from the original note were not included. Patient ID: Enoc Armando is a 76 y.o. male Subjective: HPI: Enoc Armando presents for follow-up of Type 1 diabetes The initial diagnosis of diabetes was made27 years ago in 1994. Disease course has been stable. Mr. Armando is a 75-year-old male patient who presents the office for a follow-up of his type 1 diabetes. Patient's most recent hemoglobin A1c is 7.6%. Patient reports that he does follow adiabetic diet. His weight stable from his last [...] being taken. Patient does not see a chief of party. Eye exam is current. Currently taking: No oral hypoglycemic medications Humalog insulin: 7-9 units at breakfast; 9 units at lunch; 12 units at supper Lantus insulin: 18 units at bedtime Outpatient Medications Marked as Taking for the 02/13/22 encounter (Office Visit) with Mary Vargas MD: amLODIPine (NORVASC) 10 MG tablet, Take [...] past surgicalhistory and problem list. Objective: BP 138/74 Pulse [...] 1 diabetes, under good control Enoc Titus Armando presents for follow-up of Type 1 diabetes Patient is currently managed with: Humaloginsulin: 7-9 units at breakfast; 9 units at [...] Reduce lunch and HS insulin. 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 Had bilat cataract extraction Dr. Lopez. Sees Dr. Browne in [place] every year routinely. Nephropathy: Positive Creat: 1.09; [...] to check stenosis. To be done in [place] office. 2. Education: Reviewed ABCs of diabetes management (respective goals in parentheses): A1C (7.0-8.0), blood pressure (<130/80), and cholesterol (LDL <100). 3. Compliance at present is estimated to be good. Efforts to improve compliance (if necessary) willbe directed at dietary modifications: Limit portion sizes, increased exercise and regular blood sugar monitorin times daily. 4. Follow up: 4 months 5. Record blood sugar readings as instructed. Call if BG consistently <70 or >250. [phone] Continue to check blood sugar 4 times daily. Patient has been checking blood glucoses 3 times daily for the past 90 days. His insurance will notcover 4 checks per day he reports. Patient [...] Microalbumin/Creatinine PSA, Screen Electronically signed by Mary Vargas MD 02/13/22 11:20 PM documented in this [id number] History of Present illness Narrative* Paty Ortega AUTO CRANE DRIVER - 10/13/2021 2:10 PM EST Images from the original note were not included. Patient ID: Enoc Armando is a 75 y.o. male Subjective: HPI: Enoc Armando presents for follow-up of Type 1 diabetes The initial diagnosis of diabetes was made26 years ago in 1994. Disease course has been stable. Mr. Armando is a 75-year-old male patient who presents [...] leg weakness. Patient's mostrecent hemoglobin A1c is 7.4%. Patient reports that [...] being taken. Patient does not see a chief of party. Eye exam is current. Currently taking: No [...] surgicalhistory and problem list. Objective: BP (!) 163/72 [...] Type 1 diabetes, under good control Enoc Armando presents for follow-up of Type 1 diabetes Patient is currently managed with: Humaloginsulin: 9-10 units at breakfast; 9-10 units at lunch; 12- 15 units at supper and Lantus 18 units atbedtime . Most recent Hgb A1c is 7.4%. Reports occasional lows during the day. Typically eats a snack if BG <150 at HS. PLAN: See below. 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 Exam within last 12 months: yes Date: 10/16/20. Had bilat cataract extraction Dr. Lopez. Sees Dr. Browne in [place] every year routinely. Nephropathy: Negative Creat: 1.08; [...] Call if BG consistently <70 or >250. [phone] Continue to check blood sugar 4 times daily. Patient has been checking blood glucoses 3 times daily for the past 90 days. His insurance will notcover 4 checks per day he reports. Patient [...] CNP 10/13/21 2:55 PM documented in this [id number] History of Present illness Narrative* Paty Ortega CNP - 06/20/2021 2:47 PM EDT Images from the original note were not included. Patient ID: Enoc Armando is a 75 y.o. male Subjective: HPI: Enoc Armando presents for follow-up of Type 1 diabetes The initial diagnosis of diabetes was made26 years ago in 1994. Disease course has been stable. Mr. Armando is a 75-year-old male patient who presents [...] leg weakness. Patient's mostrecent hemoglobin A1c is 7.4%. Patient reports that [...] being taken. Patient does not see a chief of party. Eye exam is current. Currently taking: No [...] surgicalhistory and problem list. Objective: BP (!) 163/68 [...] Type 1 diabetes, under good control Enoc Armando presents for follow-up of Type 1 diabetes Patient is currently managed with: Humaloginsulin: 9 units at breakfast; 9 units at lunch; 12 units at supper and Lantus 18 units at bedtime . Most recent Hgb A1c is 7.5%. Reports occasional lows during the day. Typically eats a snack if BG <150 at HS. PLAN: See below. 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 Exam within last 12 months: yes Date: 10/16/20. Had bilat cataract extraction Dr. Lopez. Sees Dr. Browne in [place] every year routinely. Nephropathy: Negative Creat: 1.08; [...] Call if BG consistently <70 or >250. [phone] Continue to check blood sugar 4 times daily. Patient has been checking blood glucoses 3 times daily for the past 90 days. His insurance will notcover 4 checks per day he reports. Patient [...] CNP 06/20/21 2:55 PM documented in this [id number] History of Present illness Narrative* Mary Vargas MD - 02/18/2021 3:53 PM EDT Patient ID: Enoc Armando is a 75 y.o. male Subjective: HPI: Enoc Armando presents for follow-up of Type 1 diabetes The initial diagnosis of diabetes was made26 years ago in 1994. Disease course has been stable. Mr. Armando is a 75-year-old male patient who presents [...] leg weakness. Patient's mostrecent hemoglobin A1c is 7.4%. Patient reports that [...] being taken. Patient does not see a chief of party. Eye exam is current. Currently taking: No oral hypoglycemic medications Humalog insulin: 9 units at breakfast; 9 units at lunch; 12 units at supper Lantus insulin: 18 units at bedtime Outpatient Medications Marked as Taking for the 02/18/21 encounter (Office Visit) with Mary Vargas MD: amLODIPine (NORVASC) 10 MG tablet, Take [...] surgicalhistory and problem list. Objective: BP (!) 194/70 [...] Type 1 diabetes, under good control Enoc Armando presents for follow-up of Type 1 diabetes Patient is currently managed with: Humaloginsulin:9 units at breakfast; 9 units at lunch; 12 units at supper and Lantus 18 units at bedtime .Most recent Hgb A1c is 7.4%. Reports occasional lows during the day. Typically eats a snack if BG <150 at HS. PLAN: See below. 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 Exam within last 12 months: yes Date: 10/16/20. Had bilat cataract extraction Dr. Lopez. Sees Dr. Browne in [place] every year routinely. Nephropathy: Negative Creat: 1.08; [...] Call if BG consistently <70 or >250. [phone] Continue to check blood sugar 4 times daily. Patient has been checking blood glucoses 3 times daily for the past 90 days. His insurance will notcover 4 checks per day he reports. Patient [...] Ultrasound doppler carotid Electronically signed by Mary Vargas MD 02/18/21 9:57 PM documented in this [email or web address] summary Author John Brandon [facility] Note Date/Time April 03, 2025 4:11a m [facility] Medical Records Department [address] [place] [address] Emergency Department Summary 04/03/25 MR#: [id number] Acct: [id number] Name: ENOC ARMANDO Rep #:[id number] : 1945 79 From: John Ramirez PCP: Dr. Ryley Jeter MD Status:REG ER Location: ED HPI History of Present Illness Chief Complaint: Shortness of Breath [facility] Medical History Pneumonia COVID Wears glasses Wears dentures Insulin dependent diabetes mellitus Prostate disease Easy bruising Back pain Dietary restriction Smoker History of pain when walking History of stress test Cardiology follow-up encounter Hypertension Home Medications ?Medication ?Instructions ?Recorded ?Last Taken ?Type amlodipine 10 mg tablet (Norvasc) 10 mg PO 1200 08/12/21 History aspirin 81 mg tablet,delayed 81 mg PO DAILY 08/05/21 U nknown History release insulin glargine 100 unit/mL (3 15 unit subcut QPM 03/21 Unknown History mL) subcutaneous pen (Lantus Solostar U-100 Insulin) insulin lispro 100 unit/mL 0 unit subcut TID SLIDING S JENNIFER 08/05/21 Unknown History subcutaneous pen tamsulosin 0.4 mg capsule (Flomax) 0.4 mg PO .COMPLEX urination 08/05/21 Unknown History ezetimibe 10 mg tablet 10 mg PO DAILY 04/06/24 Unkn own History lisinopril 5 mg tablet 5 mg PO DAILY 04/06/24 Unkno wn History metoprolol succinate 25 mg 25 mg PO DAILY 04/06/24 Unk nown History tablet,extended release 24 hr blood sugar diagnostic (Contour 09/12/24 Unknown Hist ory Next Test Strips) potassium chloride 20 mEq 20 meq PO BIDCM 30 days #60 tabs 09/14/24 Unknown Rx tablet,extended release(part/cryst) furosemide 40 mg tablet (Lasix) 40 mg PO DAILY 5 Unknown History hydralazine 50 mg tablet 50 mg PO Q8H 04/03/25 Unknow n History Allergy/AdvReac Type Severity Reaction Status Date / Time Corticosteroids AdvReac Other Verified 04/03/25 00:16 (Glucocorticoids) (steroids) Cszetan-Hyo-Uwc Reductase AdvReac Other Verified 04/03/25 00:16 Inhibitor Surgical History Hx of cystoscopy Hx of colonoscopy Hx of left cataract extraction Hx of right cataract extraction Social History household members: spouse Smoking Status: Current every day smoker tobacco type: cigarettes alcohol intake: never EXAM Physical Exam Const Vital Signs: 04/03/25 00:01 04/03/25 00:05 04/03/25 00:05 Temperature 97.8 F 97.8 F Temperature Source Temporal Temporal Pulse Rate 103 H 100 Respiratory Rate 25 H 25 H Respiratory Effort Short of Breath Labored Accessory Muscle Use Respiratory Depth Deep Respiratory Pattern Tachypnea Blood Pressure 206/80 H 206/80 H Blood Pressure Mean 122 122 Pulse Ox 100 100 Oxygen Delivery Method CPAP Bi-pap Oxygen Flow Rate (L/min) Fraction of Inspired Oxygen (FIO2) 30 30 04/03/25 00:13 04/03/25 00:14 04/03/25 00:14 Temperature Temperature Source Pulse Rate 92 115 H 115 H Respiratory Rate 22 H 22 H Respiratory Effort Respiratory Depth Respiratory Pattern Blood Pressure 206/80 H Blood Pressure Mean Pulse Ox 100 Oxygen Delivery Method Oxygen Flow Rate (L/min) Fraction of Inspired Oxygen (FIO2) 30 04/03/25 00:19 04/03/25 00:25 04/03/25 01:05 Temperature 97.7 F L Temperature Source Temporal Pulse Rate 87 85 Respiratory Rate 18 16 Respiratory Effort Respiratory Depth Respiratory Pattern Blood Pressure 169/61 H 169/58 H Blood Pressure Mean 97 95 Pulse Ox 100 100 Oxygen Delivery Method Bi-pap Bi-pap Bi-pap Oxygen Flow Rate (L/min) Fraction of Inspired Oxygen (FIO2) 30 30 30 04/03/25 02:00 Temperature Temperature Source Pulse Rate 85 Respiratory Rate 17 Respiratory Effort Respiratory Depth Respiratory Pattern Blood Pressure 172/65 H Blood Pressure Mean 100 Pulse Ox 100 Oxygen Delivery Method Nasal Cannula Oxygen Flow Rate (L/min) 4 Fraction of Inspired Oxygen (FIO2) MDM MDM MDM Narrative Medical decision making narrative: HISTORY OF PRESENT ILLNESS: Chief complaint: Shortness of breath 79-year-old male history of CHF presents with shortness of breath. Notes has been compliant Lasix. Notes earlier today started getting worsening shortness of breath. Denies orthopnea, paroxysmal nocturnal dyspnea or leg swelling. Notes he is losing weight not gaining weight. Denies chest pain. Denies vomiting. Denies bleeding diathesis. The patient denies recent surgery in the last 4 weeks or immobilization in the last 3 days, denies previous diagnosis of DVT or PE, hemoptysis, unilateral leg swelling or malignancy with treatment the last 6 months or palliative. No estrogen use noted. REVIEW OF SYSTEMS: Pertinent positives: Shortness of breath Pertinent negatives: Chest pain PHYSICAL EXAM: Nursing triage notes reviewed, Vital signs reviewed Constitutional: please see mdm HENT: MMM Eyes: Pupils equal round and reactive to light, Extraocular muscles intact Neck: No stridor, no JVD, full neck ROM Lungs: increased work of breathing, conversational dyspnea, bilateral wheezing,coarse breath sounds, no obvious focal consolidation, no obvious rales Heart: Regular rate and rhythm, No murmurs, No rubs and No gallops, 2+ distal pulses (radial, femoral, posterior tibial) in all extremities Abdomen: Soft, there is no tenderness, rigidity, rebound or guarding, no obviousperitoneal signs, no palpable pulsatile abdominal masses, no auscultated abdominal bruit : No CVAT Extremities: No edema Neuro: No new focal neurological deficits, cranial nerves II through XII intact,5/5 strength in all present extremities. Intact sensation to light touch in all present extremities, 2+ reflexes bilateral patella tendons. Skin: No rash or lesions noted MEDICAL DECISION MAKING: Chief Complaint: please see HPI External records reviewed: Reviewed prior imaging studies: Reviewed echocardiogram from 2023 showed ejection fraction of 60% and no regional wall motion abnormality Factors affecting care: CHF, hypertension, type 2 diabetes, Social determinants of health: no former smoker History obtained from others: , EMS Goals of care discussion: Patient noted he would not under any circumstance willbe intubated. He was DNR CCA, DNI Consults: internal medicine only sees Dr. Hwang) [facility] Narrative: The patient was initially tachycardic, tachypneic, saturating 100% on CPAP. He had increased work of breathing conversational dyspnea. Lungs were more consistent with COPD exacerbation with bilateral wheezing, no obvious rales noted initial exam. No signs of volume overload. BiPAP was continued immediately. I considered the following differential diagnosis: COPD exacerbation, CHF exacerbation, PE, ACS, arrhythmia, anemia, electro disturbance, pneumonia, viralillness. Patient was maintained on BiPAP, he was given duo nebs with surgery, on a twelve5 mg Solu-Medrol empirically. Also given nitroglycerin given initial elevated blood pressure concern for possible pulmonary edema. I obtained a broad lab and imaging workup to further elucidate etiology of the patient's complaints ALL IMAGES (IF OBTAINED) HAVE BEEN PERSONALLY REVIEWED AND INTERPRETED BY MYSELF. EKG with normal sinus rhythm rate 100, normal axis, normal intervals, no obviousSTEMI VBG without evidence of significant CO2 retention or respiratory acidosis Chest x-ray shows evidence of right lower lobe pneumonia. Agrees my interpretation. Initial troponin elevated consistent myocardial schema, repeat troponin also elevated, I suspect demand ischemia BNP without significant electrolyte abnormality, noted CKD at baseline CT of the chest shows evidence of PE, shows evidence of pneumonia BNP elevated consistent with CHF exacerbation Upon reevaluation patient's vital signs improved. His blood pressure improved 172/65, tachypnea improved to 17, saturating well on nasal cannula. He was ableto be taken off BiPAP. Patient reported increased shortness of breath while off BiPAP so he is placed back on BiPAP. Patient was started on ceftriaxone azithromycin for antimicrobial coverage. Given 40 mg IV Lasix for signs of volume overload in addition to empiric COPD treatment as above. The etiology patient complaints multifactorial likely including COPD exacerbation, CHF and pneumonia. Given Need for noninvasive ventilation, signs of myocardial ischemia, signs of pneumonia will admit to ICU. Discussed with Dr. Hwang. The patient and/or family, caregivers express understanding. The patient and/orfamily, caregivers agrees with the plan. Shared decision making: I will have a discussion with the patient and or visitors regarding risk/benefits of further testing or admission. They will be made aware of of the risk/benefits inherent in this decision they will be given the opportunity to voice understanding. Total critical care time today provided was at least 60 minutes. This excludes separately billable procedures. Critical care time (if documented) is secondary to the patient having high probability of clinically significant/life threatening deterioration in the patient's condition which required my urgent intervention. Impression: 1. Acute respiratory failure 2. COPD exacerbation 3. CHF exacerbation 4. Hypertensive emergency 5. Elevated troponin Dispo: Admit to ICU This note was generated with MyFeelBack dictation software. It may contain incorrectwords, spelling, and punctuation that were not noted in review of the chart prior to signing. Lab Data Labs: Laboratory Results - last 24 hr 04/03/25 04/03/25 00:05 02:45 WBC 15.7 H RBC 3.41 L Hgb 10.2 L Hct 32.2 L MCV 94.4 H MCH 29.9 MCHC 31.7 L RDW Std Deviation 45.3 H RDW Coeff of Humaira 13.2 Plt Count 300 MPV 10.8 Immature Gran % (Auto) 0.600 Neut % (Auto) 76.4 H Lymph % (Auto) 13.5 L Ada % (Auto) 7.0 Eos % (Auto) 1.9 Baso % (Auto) 0.6 Absolute Neuts (auto) 12.0 H Absolute Lymphs (auto) 2.12 Nucleated RBC % 0 D-Dimer Quant (PE/DVT) 1.86 H* Sodium 139 Potassium 4.4 Chloride 104 Carbon Dioxide 20.8 L Anion Gap 14 BUN 42 H Creatinine 1.88 H Estim Creat Clear Calc 28.20 L Est GFR (MDRD) Non-Af 35 L BUN/Creatinine Ratio 22.3 H Glucose 255 H Calcium 8.8 Troponin T High Sens 58 H* Troponin T Hi Sens 2 Hr 76 H* NT pro BNP II 6552 H ABG Data ABG results: ABG 04/03/25 00:16 Specimen Type JUANITA Sample Site Not entered O2 % 30.0 VBG pH 7.35 VBG pO2 44 H VBG HCO3 26 VBG Total CO2 27 VBG O2 Sat (Calc) 76 H VBG Base Excess 0 POC Mix VBG pCO2 Pt Tmp 46.6 O2 Delivery Device BiPAP Clinical Comments 18. 10. 30% Radiography Diagnostic Testing: Clinical Impression(s) from Imaging Studies Chest X-Ray 04/03/25 00:30 IMPRESSION: Multifocal airspace opacities of the lungs are more prominent in the perihilar zones and the lower lobes, possibly multifocal congestion and/or pneumonia. Reading Location: [place] [address] Discharge Plan Triage Chief Complaint: Shortness of Breath ED Provider: John Brandon Dx/Rx/DC Orders Prescriptions: No Action lisinopril 5 mg tablet 5 mg PO DAILY metoprolol succinate 25 mg tablet extended release 24 hr 25 mg PO DAILY ezetimibe 10 mg tablet 10 mg PO DAILY aspirin 81 mg Tablet,Delayed Release (Dr/Ec) 81 mg PO DAILY tamsulosin [Flomax] 0.4 mg Capsule 0.4 mg PO .COMPLEX Rx Instructions: 0.4 mg orally 3x/week; Takes on //SAT; amlodipine [Norvasc] 10 mg Tablet 10 mg PO 1200 insulin lispro 100 unit/mL Insulin Pen 0 unit SUBCUT TID insulin glargine [Lantus Solostar U-100 Insulin] 100 unit/mL (3 mL) Insulin Pen 15 unit SUBCUT QPM furosemide [Lasix] 40 mg tablet 40 mg PO DAILY hydralazine 50 mg tablet 50 mg PO Q8H (DME) Contour Next Test Strips Strip MISCELLANEOUS 4X/DAY potassium chloride 20 mEq Tablet,Er Particles/Crystals 20 meq PO BIDCM 30 Days Qty: 60 0RF Primary Care Provider: Ryley Jeter Referrals: Ryley Jeter MD [Primary Care Provider] - Print Language: Senegalese What to do if you have Problems For any increased pain, shortness of breath, bleeding, nausea or vomiting, chestpain, or any unexpected problems, contact your Primary Care Provider. Call [facility] ([phone]) or report to the closest Emergency Room. Call 911 if necessary. 04/03/25 0411 <Electronically signed by John Brandon DO> Cosigner Signature (if applicable): CC: Dr. Ryley Jeter MD ~ Signed [facility] Work Phone: Discharge summary Author [facility] Note Date/Time April 10, 2025 5:09 pm [facility] Medical Records Department [address] [place] [address] Instructions for Home/Discharge Instructions 04/10/25 1527 MR#: [id number] Acct: [id number] Name: ENOC ARMANDO Rep #:[id number] : 1945 79 From: Grace Arnold MD PCP: Dr. Ryley Jeter MD Status:ADM IN Discharge Instructions Diet Discharge Diet: Low fat / Low cholesterol DC O2, CPAP, BIPAP needs Home O2 Discharge instructions: Yes Type of respiratory needs?: Oxygen Oxygen frequency: Continuous Continuous oxygen liters per minute: 2 Dressing / Incision Discharge Activity: Return to Normal Activity Dressing / Incision Call your doctor if you observe: Fever of 101 or Higher, Shortness of breath, Dizziness, Swelling in the ankles, Chest pain and Increased palpitations (irregular heartbeat) Follow Up Care Test Results: Test results from this visit will be discussed in further detail at your follow- up appointment, if applicable. Discharge Plan Admission Admit Date/Time: 04/03/25 04:16 Primary Reason for Your Visit: MADONNA, pneumonia, acute on chronic respiratory failure Attending Provider: Grace Arnold Primary Care Provider: Ryley Jeter Consulting Providers: Dyana Hwang; Breezy Campbell; Denisha Thompson; Smooth Luis; Grace Arnold; Jose Moore Instructions Patient Instructions: Hemodialysis, ED Hemodialysis Discharge Orders/Prescriptions Prescriptions: New pantoprazole 40 mg tablet,delayed release (DR/EC) 40 mg PO DAILY Qty: 30 2RF Continued metoprolol succinate 25 mg tablet extended release 24 hr 25 mg PO DAILY ezetimibe 10 mg tablet 10 mg PO DAILY tamsulosin [Flomax] 0.4 mg Capsule 0.4 mg PO .COMPLEX Rx Instructions: 0.4 mg orally 3x/week; Takes on //SAT; amlodipine [Norvasc] 10 mg Tablet 10 mg PO 1200 insulin lispro 100 unit/mL Insulin Pen 0 unit SUBCUT TID insulin glargine [Lantus Solostar U-100 Insulin] 100 unit/mL (3 mL) Insulin Pen 15 unit SUBCUT QPM hydralazine 50 mg tablet 50 mg PO Q8H (DME) Contour Next Test Strips Strip MISCELLANEOUS 4X/DAY Discontinued lisinopril 5 mg tablet 5 mg PO DAILY aspirin 81 mg Tablet,Delayed Release (Dr/Ec) 81 mg PO DAILY furosemide [Lasix] 40 mg tablet 40 mg PO DAILY potassium chloride 20 mEq Tablet,Er Particles/Crystals 20 meq PO BIDCM 30 Days Qty: 60 0RF Referrals / Follow Up: Ryley Jeter MD [Primary Care Provider] - Within 1 Week Denisha Thompson MD [Med Staff - Consulting] - Within 1 Week Alvaro Gutierrez MD [Med Staff - Active Staff] - Within 1 Week (see to establish care for urine retention) Robinson Steve DO [Med Staff - Active Staff] - Within 2 Weeks (see to establishcare for anemia in light of the positive stool for occult blood) Disposition Disposition (needs filled in before D/C Order can be placed): Home, Self Care 04/10/25 1527<Electronically signed by Grace Arnold MD>Grace Arnold MD CC: Dr. Dyana Hwang MD; Dr. Ryley Jeter MD; Dr. Denisha Thompson MD; Dr.Michael Adrian MD; Dr. Grace Arnold MD; Dr. Jose Moore MD; Dr. 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 Diagnosis COVID-19- Primary COVID-19 Acute respiratory failure with hypoxia (CMS/HCC) Acute congestive heart failure, unspecified heart failure type (CMS/HCC) Pneumonia of both lungs due to infectious organism, unspecified part of lung Abnormal electrocardiogram (ECG) (EKG) Acute on chronic systolic (congestive) heart failure (CMS/HCC) documented in this encounter [facility] Work Phone: Evaluation note* Diagnosis 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- Primary Dyslipidemia Other and unspecified hyperlipidemia Congestive heart failure, unspecified HF chronicity, unspecified heart failure type (HCC) [facility] Work Phone: Evaluation note* Diagnosis NSTEMI (non-ST elevated myocardial infarction) ([facility])- Primary Acute myocardial infarction, subendocardial infarction, episode of care unspecified MADONNA (acute kidney injury) ([facility]/HCC) Acute combined systolic and diastolic congestive heart failure ([facility]) Type 1 diabetes mellitus with other specified complication ([facility]) documented in this encounter [facility] Work Phone: Evaluation note* Diagnosis NSTEMI [...] diabetic neuropathy (Multi) documented in this encounter [facility] Work Phone: Evaluation note* Diagnosis Type [...] with diabetic neuropathy documented in this encounter [facility] Work Phone: Evaluation note* Diagnosis Type 1 diabetes mellitus with diabetic neuropathy (HCC)- Primary [facility] Diagnosis Claudication in peripheral vascular disease (HCC)- Primary Encounter for examination of blood pressure with abnormal findings 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 Congestive heart failure, unspecified HF chronicity, unspecified heart failure type (HCC) Hypertensive emergency [facility] Diagnosis Hyperglycemia- Primary Other abnormal glucose [...] [facility]* Diagnosis 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- Primary documented in [...] of cerebral infarction 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- Primary Claudication in [...] with diabetic neuropathy documented in this encounter [facility] Work Phone: Evaluation note* Diagnosis Bilateral carotid artery stenosis Occlusion and stenosis of carotid artery without mention of cerebral infarction 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- Primary NSTEMI (non-ST elevated myocardial infarction) (HCC) Acute myocardial infarction, subendocardial infarction, episode of care unspecified Hospital discharge follow-up Other follow-up examination [facility]* Diagnosis Bilateral carotid artery stenosis Occlusion and stenosis of carotid artery without mention of cerebral infarction Type 1 diabetes mellitus with diabetic neuropathy (HCC)- Primary Pure hypercholesterolemia Essential hypertension Unspecified essential hypertension [facility]* Diagnosis Onset Date Resolution Status Admit Date Acute hypoxic respiratory failure ac elem April 03, 2025 4:16am [facility] Work Phone: Evaluation note* Diagnosis Bilateral carotid artery stenosis Occlusion and stenosis of carotid artery without mention of cerebral infarction Type 1 diabetes mellitus with diabetic neuropathy (HCC) [facility] Author Dyana Hwang [facility] Note Date/Time April 03, 2025 4:42a m [facility] Medical Records Department [address] [place] [id number] H&P Exam - Hospitalist 04/03/25 0402 MR#: [id number] Acct: [id number] Name: ENOC ARMANDO Rep #:[id number] : 1945 79 From: Dyana Hwang MD PCP: Dr. Ryley Jeter MD Status:ADM IN Location: ICU ICU04-1 [facility] Date of Admission: 04/03/25 Date of Service: 04/03/25 Chief Complaint: Dyspnea. HPI Narrative The patient is an 79 y/o M w/ PMHx: CKD stage III unclear subtype per GFR trending, Chronic macrocytic anemia, HTN, HLD, Diabetes mellitus type II, BPH with obstructive pathology, Tobacco use who presents to the [facility] ED on 04/03/2025 with history of worsening dyspnea starting earlier in the day with no recent peripheral edema, weight gain orthopnea actually reporting that he is lost some weight with no associated chest discomfort and given worsening prompted ED evaluation to be cautious. Patient family was present denies any recent illness in the home or near the patient. They do notethat he is had recent issues wheezing. They also note he is a very brittle diabetic and that he has not gotten his insulin this evening. Workup in the ED included T97.8 Temporal, heart rate 103, BP 206/80, respiratory rate 25, presenting initially on 9% on CPAP 30% FiO2 transition to BiPAP 30% noted to be at 100%-->T97.7, heart rate 85, BP 169/58, respiratory rate 16--> most currentlyheart rate 85, BP 172/65, respiratory rate 17, 100% on 4 L nasal cannula, CBC with WC 15.7, hemoglobin 10.2, MCV 94.4, platelets 300 with left shift, D-dimer 1.86, VBG with pH 7.35, PO244, O2 saturation 76% on BiPAP, BMP with carbon oxide20.8, BUN/creatinine 42/1.88, GFR 35, glucose 255, initial troponin 58 with repeat delta troponin 76, NT proBNP II 6552, chest x-ray with multifocal airspace opacities of the lungs more prominent in the perihilar zones in the lower lobes concerning for possible multifocal congestion and/or pneumonia, CTA chest with mild bilateral pleural effusions, passive atelectatic airspace disease/airspace consolidations of the lower lobes, bilateral chronic perihilar interstitial pulmonary thickening with associated mild multifocal groundglass densities possibly superimposed pneumonia, mild diffuse spondylosis with no evidence of any pulmonary embolus or aortic dissection, EKG with sinus rhythm with no acute evidence of ischemia. In the ED patient administered DuoNeb therapy as well as Solu-Medrol 125 mg IV x 1, Rocephin 1 g IV x 1, azithromycin 500 mg IV x 1, Lasix 40 mg IV x 1 and sublingual nitroglycerin x 1. REPLACED BY [facility] Medical History (Updated 04/03/25 @ 04:[address] Dyana Hwang MD) Chronic anemia Tobacco use COPD (chronic obstructive pulmonary disease) HLD (hyperlipidemia) HTN (hypertension) BPH (benign prostatic hyperplasia) Chronic low back pain with sciatica Diabetes mellitus, type 2 CKD (chronic kidney disease), stage III Pneumonia COVID Wears glasses Wears dentures Home Medications ?Medication ?Instructions ?Recorded ?Last Taken ?Type amlodipine 10 mg tablet (Norvasc) 10 mg PO 1200 08/12/21 History aspirin 81 mg tablet,delayed 81 mg PO DAILY 08/05/21 U nknown History release insulin glargine 100 unit/mL (3 15 unit subcut QPM 03/21 Unknown History mL) subcutaneous pen (Lantus Solostar U-100 Insulin) insulin lispro 100 unit/mL 0 unit subcut TID SLIDING S JENNIFER 08/05/21 Unknown History subcutaneous pen tamsulosin 0.4 mg capsule (Flomax) 0.4 mg PO .COMPLEX urination 08/05/21 Unknown History ezetimibe 10 mg tablet 10 mg PO DAILY 04/06/24 Unkn own History lisinopril 5 mg tablet 5 mg PO DAILY 04/06/24 Unkno wn History metoprolol succinate 25 mg 25 mg PO DAILY 04/06/24 Unk nown History tablet,extended release 24 hr blood sugar diagnostic (Contour 09/12/24 Unknown Hist ory Next Test Strips) potassium chloride 20 mEq 20 meq PO BIDCM 30 days #60 tabs 09/14/24 Unknown Rx tablet,extended release(part/cryst) furosemide 40 mg tablet (Lasix) 40 mg PO DAILY 5 Unknown History hydralazine 50 mg tablet 50 mg PO Q8H 04/03/25 Unknow n History Allergy/AdvReac Type Severity Reaction Status Date / Time Corticosteroids AdvReac Other Verified 04/03/25 00:16 (Glucocorticoids) (steroids) Sfumtdl-HCB-YvA Reductase AdvReac Other Verified 04/03/25 00:16 Inhibitor (Mdvfwic-Rnb-Kcx Reductase Inhibitor) Family History (Updated 04/03/25 @ 04:[address] Dyana Hwang MD) Mother COPD (chronic obstructive pulmonary disease) Father CAD (coronary artery disease) Heart disease Surgical History Hx of cystoscopy Hx of colonoscopy Hx of left cataract extraction Hx of right cataract extraction Social History (Updated 04/03/25 @ 04:[address] Dyana Hwang MD) household members: spouse Smoking Status: Current every day smoker tobacco type: cigarettes alcohol intake: never substance use type: does not use ROS ROS Narrative Admission Review of Systems: CONSTITUTIONAL: No fever, chills, + weakness, fatigue, weight loss. HEENT: Eyes: No visual loss, blurred vision, double vision or yellow sclerae. Ears, Nose, Throat: No hearing loss, sneezing, congestion, runny nose or sore throat. SKIN: No rash or itching, lesions, wounds. CARDIOVASCULAR: No chest pain, chest pressure or chest discomfort, palpitations,edema, orthopnea, syncopal events. RESPIRATORY: + Dyspnea, wheezing, no marked purulent cough. No hemoptysis. GASTROINTESTINAL: No anorexia, nausea, vomiting or diarrhea, abdominal pain, melena, BRBPR. GENITOURINARY: + BPH with obstructive pathology/urinary frequency. No dysuria, urgency or retention. NEUROLOGICAL: No headache, dizziness, syncope, paralysis, ataxia, numbness or tingling in the extremities, focal weakness, change in bowel or bladder control,seizure. MUSCULOSKELETAL: + muscle, back pain, joint pain or stiffness. HEMATOLOGIC: + Chronic anemia, no marked easy history of bleeding/bruising.+ LYMPHATICS: No enlarged nodes. No history of splenectomy. PSYCHIATRIC: No history of depression or anxiety. ENDOCRINOLOGIC: No reports of sweating, cold or heat intolerance. No polyuria orpolydipsia. ALLERGIES: No history of asthma, hives, eczema or rhinitis. Vital Signs Vital Signs Vital Signs: 04/03/25 00:01 04/03/25 00:05 04/03/25 00:05 Temperature 97.8 F 97.8 F Temperature Source Temporal Temporal Pulse Rate 103 H 100 Respiratory Rate 25 H 25 H Respiratory Effort Short of Breath Labored Accessory Muscle Use Respiratory Depth Deep Respiratory Pattern Tachypnea Blood Pressure 206/80 H 206/80 H Blood Pressure Mean 122 122 Pulse Ox 100 100 Oxygen Delivery Method CPAP Bi-pap Oxygen Flow Rate (L/min) Fraction of Inspired Oxygen (FIO2) 30 30 04/03/25 00:13 04/03/25 00:14 04/03/25 00:14 Temperature Temperature Source Pulse Rate 92 115 H 115 H Respiratory Rate 22 H 22 H Respiratory Effort Respiratory Depth Respiratory Pattern Blood Pressure 206/80 H Blood Pressure Mean Pulse Ox 100 Oxygen Delivery Method Oxygen Flow Rate (L/min) Fraction of Inspired Oxygen (FIO2) 30 04/03/25 00:19 04/03/25 00:25 04/03/25 01:05 Temperature 97.7 F L Temperature Source Temporal Pulse Rate 87 85 Respiratory Rate 18 16 Respiratory Effort Respiratory Depth Respiratory Pattern Blood Pressure 169/61 H 169/58 H Blood Pressure Mean 97 95 Pulse Ox 100 100 Oxygen Delivery Method Bi-pap Bi-pap Bi-pap Oxygen Flow Rate (L/min) Fraction of Inspired Oxygen (FIO2) 30 30 30 04/03/25 02:00 04/03/25 03:00 04/03/25 03:52 Temperature 97.9 F 97.7 F L Temperature Source Temporal Temporal Pulse Rate 85 97 96 Respiratory Rate 17 17 17 Respiratory Effort Respiratory Depth Respiratory Pattern Blood Pressure 172/65 H 165/58 H 165/58 H Blood Pressure Mean 100 93 93 Pulse Ox 100 98 99 Oxygen Delivery Method Nasal Cannula Nasal Cannula Bi-pap Oxygen Flow Rate (L/min) 4 4 Fraction of Inspired Oxygen (FIO2) 30 Weight Weight: 142 lb 10.225 oz Body Mass Index (BMI) 22.3 Physical Exam Narrative Physical Examination: General: Awake, alert, oriented x 3 and cooperative, seated upright in ED bed, fatigued appearing, BiPAP in place, respiratory distress lessened with BiPAP transition. Skin: Normal color, normal turgor, no icterus, no cyanosis except occasional stage ecchymoses, abrasion. HEENT: AT/NC, EOMI, PERRLA, mildly dry MM, BiPAP in place, difficult to discern carotid bruit given referred sound, + JVD noted. Lungs: Significantly diminished, occasional end expiratory wheeze primarily anterior red, BiPAP in place, currently respiratory rate improved and respiratory distress lessened, unable to discern current rales or rhonchi. Heart: Mildly tachycardic with regular rhythm; no gallop, rub audible. Abdomen: Soft, NTTP, ND, distant normal BS, no appreciated HSM. Extremities: No cyanosis, no marked clubbing, no marked distal edema. Neurological: Patient awake, alert, oriented as no, cognitive function currentlymildly decreased given respiratory distress presentation but improving, pupils equally reactive to light and accommodation, cranial nerves gross normal, movingall 4 extremities, no focal deficits, strength severely globally decreased secondary to acute presentation Psychiatric: Affect appears fatigued, respiratory distress lessening, no acute evidence of depressive or anxiety feelings. Results Lab / Micro Data 04/03/25 00:05 04/03/25 00:05 Labs: Laboratory Results - last 24 hr 04/03/25 00:05: WBC 15.7 H, RBC 3.41 L, Hgb 10.2 L, Hct 32.2 L, MCV 94.4 H, MCH 29.9, MCHC 31.7 L, RDW Std Deviation 45.3 H, RDW Coeff of Humaira 13.2, Plt Count 300, MPV 10.8, Immature Gran % (Auto) 0.600, Neut % (Auto) 76.4 H, Lymph % (Auto) 13.5 L, Ada % (Auto) 7.0, Eos % (Auto) 1.9, Baso % (Auto) 0.6, Absolute Neuts (auto) 12.0 H, Absolute Lymphs (auto) 2.12, Nucleated RBC % 0, D-Dimer Quant (PE/DVT) 1.86 H*, Sodium 139, Potassium 4.4, Chloride 104, Carbon Dioxide 20.8 L, Anion Gap 14, BUN 42 H, Creatinine 1.88 H, Estim Creat Clear Calc 28.20 L, Est GFR (MDRD) Non-Af 35 L, BUN/Creatinine Ratio 22.3 H, Glucose 255 H, Calcium 8.8, Troponin T High Sens 58 H*, NT pro BNP II 6552 H 04/03/25 02:45: Troponin T Hi Sens 2 Hr 76 H* Micro: Microbiology 04/03/25 00:25 Mucosa - Nose SARS-CoV-2, Influenza & RSV (PCR) - Final ABG Data ABG results: ABG 04/03/25 00:16 Specimen Type JUANITA Sample Site Not entered O2 % 30.0 VBG pH 7.35 VBG pO2 44 H VBG HCO3 26 VBG Total CO2 27 VBG O2 Sat (Calc) 76 H VBG Base Excess 0 POC Mix VBG pCO2 Pt Tmp 46.6 O2 Delivery Device BiPAP Clinical Comments 18. 10. 30% Imaging Radiology Impression Chest X-Ray 04/03/25 00:30 IMPRESSION: Multifocal airspace opacities of the lungs are more prominent in the perihilar zones and the lower lobes, possibly multifocal congestion and/or pneumonia. Reading Location: [place] [address] Chest CTA 04/03/25 02:34 IMPRESSION: Mild bilateral pleural effusions. Passive atelectatic airspace disease/airspace consolidations of the lower lobes. Bilateral chronic perihilar interstitial pulmonary thickening with associated mild multifocal ground-glass densities, possibly superimposed pneumonia. Mild diffuse spondylosis. No CT evidence of pulmonary embolus or aortic dissection. Reading Location: [place] [address] Assessment & Plan Assessment/Plan (1) Acute hypoxic respiratory failure: PLAN: Plan The patient is an 79 y/o M w/ PMHx: CKD stage III unclear subtype per GFR trending, Chronic macrocytic anemia, HTN, HLD, Diabetes mellitus type II, BPH with obstructive pathology, Tobacco use who presents to the [facility] ED on 04/03/2025 with history of worsening dyspnea starting earlier in the day with no recent peripheral edema, weight gain orthopnea actually reporting that he is lost some weight with no associated chest discomfort and given worsening prompted ED evaluation to be cautious. #1. Acute Hypoxic Respiratory Failure secondary to Acute on Chronic COPD exacerbation and concern for possible superimposed pneumonia, community-acquiredwith questionable concurrent possible overload, acute decompensated HF exacerbation unclear type with concurrently noted #2: Will admit to ICU, maintained on BIPAP, ABG requested, will consult ICU physician per protocol, maintain on ATC duonebs, PRN albuterol, IV methylprednisolone, IV Rocephin and IV azithromycin, HOB, IS parameters, will obtain sputum Cx, respiratory viral panel, urine antigens, procalcitonin, maintain on cardiac telemetry, continue tocycle cardiac enzymes with repeat EKGs as needed, judiciously diuresis as still uncertain that overload is an additional etiology, monitor I/Os, obtain TSH and magnesium level, request echocardiogram, maintain on heparin drip until further elucidate enzyme trending. If enzymes significantly rise may consider cardiologyinvolvement but again confounded especially given respiratory distress upon presentation with possible demand as primary etiology. #2. Indeterminate cardiac enzyme likely secondary to #1 with demand: EKG in ED with sinus rhythm with no acute evidence of ischemia, chest x-ray with multifocal airspace opacities of the lungs more prominent in the perihilar zonesin the lower lobes concerning for possible multifocal congestion and/or pneumonia, CTA chest with mild bilateral pleural effusions, passive atelectatic airspace disease/airspace consolidations of the lower lobes, bilateral chronic perihilar interstitial pulmonary thickening with associated mild multifocal ground-glass densities possibly superimposed pneumonia, mild diffuse spondylosiswith no evidence of any pulmonary embolus or aortic dissection, initial [id number] with repeat delta troponin 76. Will maintain on a monitored bed to assure noacute myocardial infarction with serial cardiac enzymes and EKGs. Magnesium level requested. FLP in AM. Continue aspirin therapy. ECHO requested as noted above. #3. Diabetes mellitus type II: Will continue home insulin regimen with dose now, ADA diet, accu checks w/ ISS. #4. Hypertension: Continue home regimen including metoprolol, lisinopril, amlodipine, hydralazine, IV Lasix judiciously, PRN hydralazine. #5. Hyperlipidemia: Not on statin therapy with intolerance of some sort noted, continue ezetimibe home regimen, FLP in AM. #6. Chronic Kidney Disease Stage III, unclear subtype per GFR trending: Admission BUN/Cr 42/1.88, GFR 35, baseline renal function primarily 1.5-2.0, most recently 02/06/2025 creatinine 1.88, repeat BMP in AM. #7. Chronic macrocytic anemia: Admission hemoglobin 10.2, MCV 94.4, baseline hemoglobin 10-11, stable, continue to trend CBC. #8. BPH with obstructive pathology: Will continue patient home Flomax regimen, monitor for urinary retention. #9. Tobacco Abuse: Encouraged cessation, inpatient consultation per RT, NR if desired. #10. DVT prophylaxis: Heparin drip pending continued cardiac enzyme trending incase further arises. #11. CODE status: Patient NINA is his who is present and living will is currently in place. Discussed CODE status at length including difference betweenFULL code, DNR-CCA and DNR-CC status. Following discussions about the differences in these status, requested DNR-CCA, no intubation. Advanced Care Planning Face to Face Time: 16 minutes. Charges/Coding Visit Charges Inpatient E&M: 65991 Init Hosp L3 Procedures Hospitalists Procedures: 47532 Advncd Care Plan 30 Min 04/03/25 0442 <Electronically signed by Dyana Hwang MD> Cosigner Signature (if applicable): CC: Dr. Dyana Hwang MD; Dr. Ryley Jeter MD~ Signed [facility] Work Phone: History of Present illness Narrative* At least a 5 yr HX of LBP (previous HX of sciatica). No recent film studies have been done. He willbe a low fall risk. The patient will continue his therapy at [place]. Physical findings include limited trunk ROM with discomfort. Continue with trunk mech trng, STW (needling), and core stability/ROM exercises. * Clinical Presentation: Stable and/or uncomplicated characteristics. * Level of Complexity: low * Problem List: activity limitations, ADLs/IADLs/self care skills, decreased functional level, decreased knowledge of HEP, decreased knowledge of precautions, fall risk, gait/locomotion, pain, range ofmotion/joint mobility and strength. [facility] Work Phone: History of Present illness NarrativePatient identified by name and date of . Patient demonstrated good understanding of exercises and stretching with cues to complete after instruction. He presented with palpable tension in gluts and QL and paraspinals that responded well to STW. [facility] Work Phone: History of Present illness Narrative* [...] with relief noted d/t tightness in LB. [facility] [place] Work Phone: History of Present illness Narrative* Tightness along the ITB and QL continues. * Palpable spams in both regions with with STW. * Fair trunk flexibility with SKTC. [facility] Work Phone: History of Present illness NarrativePatient identified by name and date of . Patient was able to progress with several exercises this date with addition of teri disc and focus on maintain upright posture. He presented with increased muscle tension in IT band and QL this date.[facility] Work Phone: History of Present illness NarrativePatient identified by name and date of . Added IT band stretch this date and instructed for HEP due to palpable tension. Reviewed importance of HEP even if he feels sore to increased with ROM and decrease with muscle tension, he verbalized good understanding. Patient continues to present with palpable muscle tension/restrictions in his piriforms.[facility] Work Phone: History of Present illness NarrativePatient identified by name and date of . Added IT band stretch this date and instructed for HEP due to palpable tension. Reviewed importance of HEP even if he feels sore to increased with ROM and decrease with muscle tension, he verbalized good understanding. Patient continues to present with palpable muscle tension/restrictions in his piriforms.[facility] [place] Work Phone: History of Present illness NarrativePatient [...] and possible inclusion of trigger point dry needling.[facility] Work Phone: History of Present illness NarrativeSTW [...] covering a TENS unit for the patient. [facility] Work Phone: reason for referral (narrative)* Consultation (Routine) - Authorized Specialty Diagnoses / Procedures Referred By Jimy stacy Referred To Contact Nephrology Diagnoses Stage 3b chronic kidney disease (CMS/HCC) Procedures Follow Up In Nephrology Ayanna Albert DO [address] [place] [address] Referral ID Status Reason Start Date Expiration Date V isits Requested Visits Authorized [id number] Authorized 08/25/2023 08/24/[address] [facility] Work Phone: Reason for referral (narrative)* Consultation (Routine) - Authorized Specialty Diagnoses / Procedures Referred By Jimy stacy Referred To Contact Nephrology Diagnoses Stage 3b chronic kidney disease ([facility]) Procedures Follow Up In Nephrology Madie Albert APRN-CNP, DNP [address] [place] [address] Referral ID Status Reason Start Date Expiration Date V isits Requested Visits Authorized [id number] Authorized 02/24/2024 02/23/[address] [facility] Work Phone: Reason for referral (narrative)No reason for referral information availableWSelect [facility] Work Phone: Reason for visit Narrative* Initial Evaluation . lumbar DDD. * Referred by: Yuki [facility] Work Phone: [facility] for visit Narrative* Auth/Cert Specialty Diagnoses / Procedures Referred By Contac t Referred To Contact Diagnoses NSTEMI (non-ST elevated myocardial infarction) (HCC) NSTEMI Referral ID Status Reason Start Date Expiration Date Visits Re quested Visits Authorized [id number] 1 1 [facility] for visit Narrative* Auth/Cert (Routine) Specialty Diagnoses / Procedures Referred By Contac t Referred To Contact Diagnoses Cardiovascular stress test abnormal Fatigue, unspecified type SOB (shortness of breath) Cardiovascular stress test abnormal [R94.39] Fatigue, unspecified type [R53.83] SOB (shortness of breath) [R06.02] Procedures Left Heart Cath Referral ID Status Reason Start Date Expiration Date Visits Re quested Visits Authorized [id number] 1 1 [facility] Instructions * Patient Instructions - Alexandra Givens [...] PA-C - 06/17/2017 11:43 AM EDT Enoc Armando is on: Humalog 9 units at breakfast, [...] neoplasm of prostate Summary Purpose Family History Relationship Condition Age at Onset Recorded Date/T samantha mother Chronic obstructive pulmonary disease Unk nown father Coronary artery disease Unknown Cardiac disease Unknown Advance Directives Documents on File Type Date Recorded Patient 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 Advance Directives and Living Will Documents on File Type Date Recorded Patient 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 Advance Directives and Livin g Will 10/18/2020 1:33 PM Documents on File Type Date Recorded Patient 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 Advance Directives and Livin g Will 10/18/2020 1:33 PM Documents on File Type Date Recorded Patient 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 Advance Directives and Livin g Will 02/21/2021 3:38 PM Documents on File Type Date Recorded Patient 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 Advance Directives and Livin g Will 02/21/2021 3:38 PM Latest Code Status on File Code Status Date Activated Date Inactivated Comments Full Code 10/11/2023 5:02 AM Question Answer Comments Plan of Care: Code Status Discussion Completed Decision Maker: Patient Advance Directive Response Recorded Date/ Time Living Will Yes August 05 7:59am Power of Oil Well Shooter Yes August 05 7:59am Latest Code Status [...] Documents on File Type Date Recorded Patient 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 Advance Directives and Livin g [...] Documents on File Type Date Recorded 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 No April 03, 2025 5:17am History of Present Illness * Keeley Patton CNP - 11/11/2018 8:11 AM EST Formatting of this note may be different from the original. Patient ID: Enoc Armando is a 72 y.o. male Subjective: HPI: Enoc Armando presents for follow-up of Type 1 diabetes The initial diagnosis of diabetes was [id number] years ago in 1994. Disease course has been stable. Mr. Armando is a 72-year-old male patient who presents [...] being taken. Patient does not see a chief of party. Eye exam is current. Patient with a [...] 1 diabetes, under good control Enoc Ariela Armando presents for follow-up of Type 1 diabetes [...] blood sugar though. PLAN: CPM. 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 Exam within last 12 months: yes Date: 08/2018 . Had bilat cataract extraction Dr. Lopez. Sees Dr. Browne in [place] every year routinely. Nephropathy: Negative Creat: 1.2, [...] Call if BG consistently <70 or >250. [phone] Continue to check blood sugar 4 times [...] from the original. Subjective: Patient ID: Enoc Armando is a 71 y.o. male. Diabetes He [...] being taken. He does not see a chief of party.Eye exam is current (Jun 16). The following [...] Type 1 diabetes, under fair control Enoc Armando presents for follow-up of Type 1 diabetes Patient is currently managed with: Humaloginsulin: 9 units at breakfast; 9 units at lunch; 14 units at supper and Levemir insulin: 20 units at bedtime . Most recent Hgb A1c was 8.2 down 9.1% on 05/07/16. 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 male Subjective: HPI: Enoc Armando presents for follow-up of Type 1 diabetes The initial diagnosis of diabetes was [id number] years ago in 1994. Disease course has been stable. Mr. Armando is a 72-year-old male patient who presents [...] being taken. Patient does not see a chief of party. Eye exam is current. Currently taking: No [...] 1 diabetes, under good control Enoc Ariela Armando presents for follow-up of Type 1 diabetes [...] the morning. 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 Exam within last 12 months: yes Date: 08/2018- patient due next month for updated exam Had bilat cataract extraction Dr. Lopez. Sees Dr. Browne in [place] every year routinely. Nephropathy: Negative Creat: 1.0, [...] to bedtime appear to be typically less [id number] and usually less than 180. He was [...] Call if BG consistently <70 or >250. [phone] Continue to check blood sugar 4 times [...] 11/16/2019 10:44 AM EST Patient ID: Enoc Armando is a 73 y.o. male Subjective: HPI: Enoc Armando presents for follow-up of Type 1 diabetes The initial diagnosis of diabetes was [id number] years ago in 1994. Disease course has been stable. Mr. Armando is a 72-year-old male patient who presents [...] being taken. Patient does not see a chief of party. Eye exam is current. Currently taking: No [...] Type 1 diabetes, under good control Enoc Armando presents for follow-up of Type 1 diabetes [...] at HS. 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 Exam within last 12 months: yes Date: 08/2018- patient due next month for updated exam Had bilat cataract extraction Dr. Lopez. Sees Dr. Browne in [place] every year routinely. Nephropathy: Negative Creat: 1.08; [...] Call if BG consistently <70 or >250. [phone] Continue to check blood sugar 4 times [...] 06/18/2020 10:04 AM EDT Patient ID: Enoc Armando is a 74 y.o. male Subjective: HPI: Enoc Armando presents for follow-up of Type 1 diabetes The initial diagnosis of diabetes was made25 years ago in 1994. Disease course has been stable. Mr. Armando is a 74-year-old male patient who presents [...] being taken. Patient does not see a chief of party. Eye exam is current. Currently taking: No oral hypoglycemic medications Humalog insulin: 10 units at breakfast; 10 units at lunch; 14-15 units at supper Lantus insulin: 18 units at bedtime Outpatient Medications Marked as Taking for the 8/18/20 encounter (Office Visit) with Paty Orteag CNP: amLODIPine (NORVASC) 10 MG tablet, Take [...] Type 1 diabetes, under good control Enoc Armando presents for follow-up of Type 1 diabetes [...] <150 atHS. 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 Exam within last 12 months: yes Date: 09/2019- patient due September 2020for updated exam Had bilat cataract extraction Dr. Lopez. Sees Dr. Browne in [place] every yearroutinely. Nephropathy: Negative Creat: 1.01; eGFR: [...] Call if BG consistently <70 or >250. [phone] Continue to check blood sugar 4 times [...] 10/18/2020 1:45 PM EST Patient ID: Enoc Armando is a 74 y.o. male Subjective: HPI: Enoc Armando presents for follow-up of Type 1 diabetes The initial diagnosis of diabetes was made25 years ago in 1994. Disease course has been stable. Mr. Armando is a 74-year-old male patient who presents [...] being taken. Patient does not see a chief of party. Eye exam is current. Currently taking: No oral hypoglycemic medications Humalog insulin: 10 units at breakfast; 10 units at lunch; 14-15 units at supper Lantus insulin: 18 units at bedtime Outpatient Medications Marked as Taking for the 10/18/20 encounter (Office Visit) with Paty Ortega, AUTO CRANE DRIVER: amLODIPine (NORVASC) 10 MG tablet, Take 10 [...] 1 diabetes, under good control Enoc Ariela Armando presents for follow-up of Type 1 diabetes [...] <150 atHS. 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 Exam within last 12 months: yes Date: 10/16/20. Had bilat cataract extraction Dr. Lopez. Sees Dr. Browne in [place] every year routinely. Nephropathy: Negative Creat: 1.01; [...] Call if BG consistently <70 or >250. [phone] Continue to check blood sugar 4 times [...] A1c T4, Free TSH Electronically Signed by: Ptay Ortega CNP 10/18/20 10:55 AM documented in this encounter* Mary Vargas MD - 03/13/2019 12:23 PM EDT Patient ID: Enoc Armando is a 73 y.o. male Subjective: HPI: Enoc Armando presents for follow-up of Type 1 diabetes The initial diagnosis of diabetes was [id number] years ago in 1994. Disease course has been stable. Mr. Armando is a 72-year-old male patient who presents [...] being taken. Patient does not see a chief of party. Eye exam is current. Currently taking: No [...] 1 diabetes, under good control Enoc Ariela Armando presents for follow-up of Type 1 diabetes [...] same dose of 18 unitsnightly. 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 Exam within last 12 months: yes Date: 08/2018 . Had bilat cataract extraction Dr. Lopez. Sees Dr. Browne in [place] every year routinely. Nephropathy: Negative Creat: 1.0, [...] Call if BG consistently <70 or >250. [phone] Continue to check blood sugar 4 times [...] CBC and Differential Electronically signed by Mary Vargas MD 03/13/19 10:37 PM documented in this encounter Reason for Referral Status Reason Specialty Diagnoses / Procedures Referred By Contact Referred To Contact Authorized Cardiology Diagnoses Bilateral carotid artery stenosis Procedures Ultrasound doppler carotid Mary Vargas MD [address] [place] [address] Status Reason Specialty Diagnoses / Procedures Referre d By Contact Referred To Contact Closed Cardiology Diagnoses Bilateral carotid artery stenosis Procedures Ultrasound doppler carotid Mary Vargas MD [address] [place] [address] [facility] Sigrid Barrera [address] [facility] [place] [address] Specialty Diagnoses / Procedures Referred By Contac t Referred To Contact Urology Diagnoses Elevated PSA Paty Ortega CNP [address] [place] [address] Alvaro Gutierrez MD [address] [place] [phone] Referral ID Status Reason Start Date Expiration Date Visits Requested Visits Authorized [id number] Pending Review Specialty Services Required/Pat ient's Best Interest 06/19/2022 06/19/2023 1 1 Specialty Diagnoses / Procedures Referred By Contac t Referred To Contact Cardiology Diagnoses Bilateral carotid artery stenosis Procedures Ultrasound doppler carotid Paty Ortega, AUTO CRANE DRIVER [address] [place] [address] Referral ID Status Reason Start Date Expiration Date V isits Requested Visits Authorized [id number] Authorized 10/19/2022 10/19/2023 1 1 Specialty Diagnoses / Procedures Referred By Contac t Referred To Contact Radiology Diagnoses Congestive heart failure, unspecified HF chronicity, unspecified heart failure type (HCC) 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 Procedures NM Myocardial Perfusion Multiple SPECT Day, Woo Larsen MD [address] [place] [address] Referral ID Status Reason Start Date Expiration Date V isits Requested Visits Authorized [id number] New Request 10/21/2023 10/20/2024 4 4 Chief Complaint and Reason for Visit Chief Complaint EORDER Chief Complaint EORDER LAB AND XRAY Chief Complaint Admit Date RESP FAILURE, COPD EXAC, ? PNA, ?HF EXAC April 03, 2025 4:16am Reason for Visit Admit Date Acute hypoxic respiratory failure April 032024 4:16am Chief Complaint Admit Date RESP FAILURE, COPD EXAC, ? PNA, ?HF EXAC April 03, 2025 4:16am RESP FAILURE, COPD EXAC, ? PNA, ?HF EXAC April 03, 2025 8:50am RESP FAILURE, COPD EXAC, ? PNA, ?HF EXAC April 04, 2025 10:28am RESP FAILURE, COPD EXAC, ? PNA, ?HF EXAC April 04, 2025 11:21am RESP FAILURE, COPD EXAC, ? PNA, ?HF EXAC April 05, 2025 8:19am RESP FAILURE, COPD EXAC, ? PNA, ?HF EXAC April 05, 2025 12:12pm RESP FAILURE, COPD EXAC, ? PNA, ?HF EXAC April 05, 2025 2:59pm RESP FAILURE, COPD EXAC, ? PNA, ?HF EXAC April 05, 2025 6:06pm RESP FAILURE, COPD EXAC, ? PNA, ?HF EXAC April 06, 2025 9:38am RESP FAILURE, COPD EXAC, ? PNA, ?HF EXAC April 06, 2025 11:23am RESP FAILURE, COPD EXAC, ? PNA, ?HF EXAC April 06, 2025 6:18pm RESP FAILURE, COPD EXAC, ? PNA, ?HF EXAC April 07, 2025 2:50pm RESP FAILURE, COPD EXAC, ? PNA, ?HF EXAC April 08, 2025 10:26am RESP FAILURE, COPD EXAC, ? PNA, ?HF EXAC April 09, 2025 3:01pm Reason for Visit Admit Date Acute hypoxic respiratory failure April 032024 4:16am MADONNA (acute kidney injury) April 03, 2025 4:16am Anemia April 03, 2025 4:16a m Bradycardia April 03, 2025 4:16a m LV dysfunction April 03, 2025 4:16a m Non-STEMI (non-ST elevated myocardial in farction) April 03, 2025 4:16am CKD (chronic kidney disease), stage III April 03, 2025 4:16am HTN (hypertension) April 03, 2025 4:16a m Additional Source Comments (unrecognized sect ion and content) No Status Records FoundNo Status Records FoundNo Status Records FoundNo Status Records FoundNo Status Records FoundNo Status Records FoundNo Status Records FoundNo Status Records FoundNo Status Records FoundNo Status Records FoundNo Status Records FoundNo Status Records Found INFORMATION SOURCE (unrecogn ized section and content) DATE CREATED AUTHOR 04/21/2018 [facility] DATE CREATED AUTHOR AUTHOR'S ORGANIZ ATION 07/05/2019 [facility] DATE CREATED AUTHOR AUTHOR'S ORGANIZ ATION 08/04/2023 [facility] DATE CREATED AUTHOR AUTHOR'S ORGANIZ ATION 08/06/2023 [facility] DATE CREATED AUTHOR AUTHOR'S ORGANIZ ATION 10/13/2023 [facility] DATE CREATED AUTHOR AUTHOR'S ORGANIZ ATION 11/12/2024 [facility] DATE CREATED AUTHOR AUTHOR'S ORGANIZ ATION 02/27/2025 [facility] DATE CREATED AUTHOR AUTHOR'S ORGANIZ ATION 03/13/2025 [facility] DATE CREATED AUTHOR AUTHOR'S ORGANIZ ATION 03/30/2025 [facility] DATE CREATED AUTHOR AUTHOR'S ORGANIZ ATION 04/14/2025 [facility] DATE CREATED AUTHOR AUTHOR'S ORGANIZ ATION 04/15/2025 [facility] DATE CREATED AUTHOR AUTHOR'S ORGANIZ ATION 04/17/2025 [facility] Reason for Visit (unrecogniz ed section and content) Reason Comments Diabetes Mellitus Reason Onset Date Comments Medication Refill 02/18/2021 Reason Comments Diabetes Mellitus Status Reason Specialty Diagnoses / Procedures Referre d By Contact Referred To Contact Closed Cardiology Diagnoses Bilateral carotid artery stenosis Procedures Ultrasound doppler carotid Mary Vargas MD [address] [place] [address] [place] [address] Reason Onset Date Comments Medication Refill 10/08/2021 Reason Comments Diabetes Mellitus Gap Closure (Health Maintenance) Ophthal mology Exam due on 10/14/2021Urine Microalbumin due on 12/12/2021A1C due on 09/08/2022 Reason Onset Date Comments [...] No coded services entered Praful Maloney MD [address] [place] [address] [facility] [address] [place] [address] Referral ID Status Reason Start Date Expiration Date Visits Re quested Visits Authorized [id number] 1 1 Reason Comments Initial Visit (Intake) [place] Specialty Diagnoses / Procedures Referred By Contac t Referred To Contact Cardiology Diagnoses Congestive heart failure, unspecified HF chronicity, unspecified heart failure type ([facility]) Mary Vargas MD [address] [place] [address] [place] [address] Referral ID Status Reason Start Date Expiration Date Visits Re quested Visits Authorized [id number] Closed 10/19/2023 10/18/2024 1 1 Reason Comments Respiratory Distress Pt comes in for dif ficulty breathing. Pt states that he was dx with a viral lung infection 1 wk ago and placed on a steroid. Pt had covid 1 month ago and was admitted for 1 wk at this facility. 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 EMS reports an O2 level in [...] Referred By Jimy stacy Referred To Contact Vascular Surgery Diagnoses Bilateral carotid artery stenosis Sandi Phan PA-C [address] [place] [address] Phone: tel: fax: [address] [address] Phone: tel: Referral ID Status Reason Start Date Expiration Date V isits Requested Visits Authorized [id number] Pending Review 11/07/2024 11/07/2025 1 1 Reason Comments Diabetes Mellitus Diabetic Eye Exam du e on 1Diabetic Foot Exam due on 06/21/2024 Reason Comments [...] Up In Nephrology Ayanna Albert DO [address] [place] [address] Phone: tel: fax: Referral ID Status Reason Start Date Expiration Date V isits Requested Visits Authorized [id number] Authorized 08/29/2024 08/29/2025 1 1 Reason Comments Shortness of Breath Abnormal Lab BNP Reason Comments Diabetes Mellitus Diabetic Eye Exam du e on 10/14/2021 Reason Onset Date Comments Results 03/27/2025 Lab Reason Onset Date Comments Medication Refill 04/16/2025 Care Teams (unrecognized sec tion and content) System Manager Relationship Specialty Start Date End Date Nancy Mirza MD PCP - General Family Medicine 01/09/16 System Manager Relationship Specialty Start Date End Date Nancy Mirza MD PCP - General Family Medicine 01/09/16 System Manager Relationship Specialty Start Date End Date Nancy Mirza MD PCP - General Family Medicine 01/09/16 System Manager Relationship Specialty Start Date End Date Nancy Mirza MD PCP - General Family Medicine 01/09/16 System Manager Relationship Specialty Start Date End Date Nancy Mirza MD PCP - General Family Medicine 01/09/16 System Manager Relationship Specialty Start Date End Date Nancy Mirza MD PCP - General Family Medicine 01/09/16 System Manager Relationship Specialty Start Date End Date Nancy Mirza MD PCP - General Family Medicine 01/09/16 System Manager Relationship Specialty Start Date End Date Nancy Mirza MD [address] [place] [address] PCP - General Family Medicine 01/09/16 System Manager Relationship Specialty Start Date End Date Nancy Mirza MD [address] [place] [address] PCP - General Family Medicine 01/09/16 System Manager Relationship Specialty Start Date End Date Nancy Mirza MD [address] [place] [address] PCP - General 11/01/18 System Manager Relationship Specialty Start Date End Date Ryley Jeter MD [address] [place] [address] PCP - General Family Medicine 10/08/23 System Manager Relationship Specialty Start Date End Date Nancy Mirza MD [address] [place] [address] PCP - General 11/01/18 System Manager Relationship Specialty Start Date End Date Ryley Jeter MD [address] [place], [place] [id number] PCP - General Family Medicine 10/08/23 System Manager Relationship Specialty Start Date End Date Ryley Jeter MD [address] [place], [place] [id number] PCP - General Family Medicine 10/08/23 Team Status: Active Member Role Status Lizzette Jeter MD Primary Care Provider Active Team Status: Inactive Member Role Status Lizzette Jeter MD Primary Care Provider Active Jana Ferguson RADIO ELECTRICIAN, RADIO ELECTRICIAN-C Attending Provider Active Team Status: Inactive Member Role Status Lizzette Jeter MD Primary Care Provide r, Attending Provider, Referring Provider Active System Manager Relationship Specialty Start Date End Date Ayanna Albert DO [address] [place], [place] [address] [place] [address] PCP - [employer] Medicare Advantage PCP 11/01/23 Generic Provider, No Assigned PcpMD [address] [place] [address] PCP - General Internal Medicine 11/26/23 System Manager Relationship Specialty Start Date End Date Ayanna Albert DO [address] [place], [place] [id number] PCP - [employer] Medicare Advantage PCP 11/01/23 Gerri Amos MD [address] [place] [address] PCP - General Internal Medicine 11/26/23 System Manager Relationship Specialty Start Date End Date Ryley Jeter MD [address] [place] [address] PCP - General Family Medicine 10/08/23 System Manager Relationship Specialty Start Date End Date Nancy Mirza MD [address] [place] [address] PCP - General 11/01/18 11/25/23 System Manager Relationship Specialty Start Date End Date Ryley Jeter MD [address] [place] [address] PCP - General Family Medicine 10/08/23 System Manager Relationship Specialty Start Date End Date Ryley Jeter MD [address] [place] [address] PCP - General Family Medicine 10/08/23 System Manager Relationship Specialty Start Date End Date Ryley Jeter MD [address] [place] [address] PCP - General Family Medicine 10/08/23 System Manager Relationship Specialty Start Date End Date Ryley Jeter MD [address] [place] [address] PCP - General Family Medicine 10/08/23 System Manager Relationship Specialty Start Date End Date Ayanna Albert DO [address] [place] [address] PCP - [employer] Medicare Advantage PCP 11/01/23 Generic Provider, No Assigned Pcp, [address] [place] [address] PCP - General Internal Medicine 11/26/23 System Manager Relationship Specialty Start Date End Date Ryley Jeter MD [address] [place] [address] PCP - General Family Medicine 10/08/23 System Manager Relationship Specialty Start Date End Date Ayanna Albert DO [address] [place], [place] [id number] PCP - [employer] Medicare Advantage PCP 11/01/23 Generic Provider, No Assigned PcpMD [address] [place] [address] PCP - General Internal Medicine 11/26/23 System Manager Relationship Specialty Start Date End Date Ryley Jeter MD [address] [place] [address] PCP - General Family Medicine 10/08/23 System Manager Relationship Specialty Start Date End Date Ryley Jeter MD [address] [place] [address] PCP - General Family Medicine 10/08/23 System Manager Relationship Specialty Start Date End Date Ryley Jeter MD [address] [place] [address] PCP - General Family Medicine 10/08/23 System Manager Relationship Specialty Start Date End Date Ryley Jeter MD [address] [place] [address] PCP - General Family Medicine 10/08/23 System Manager Relationship Specialty Start Date End Date Ryley Jeter MD [address] [place] [address] PCP - General Family Medicine 10/08/23 System Manager Relationship Specialty Start Date End Date Ryley Jeter MD [address] [place], [place] [address] PCP - General Family Medicine 10/08/23 System Manager Relationship Specialty Start Date End Date Ryley Jeter MD [address] [place], [place] [id number] PCP - General Family Medicine 10/08/23 System Manager Relationship Specialty Start Date End Date Ryley Jeter MD [address] [place], [place] [address] PCP - General Family Medicine 10/08/23 Kristy Parker MD [address] [place] [address] Consulting Physician Vascular Surgery 11/09/24 System Manager Relationship Specialty Start Date End Date Ryley Jeter MD [address] [place], [place] [phone] PCP - General Family Medicine 10/08/23 Kristy Parker MD [address] [place] [address] Consulting Physician Vascular Surgery 11/09/24 System Manager Relationship Specialty Start Date End Date Ryley Jeter MD [address] [place], [place] [address] PCP - General Family Medicine 10/08/23 Kristy Parker MD [address] [place] [address] Consulting Physician Vascular Surgery 11/09/24 System Manager Relationship Specialty Start Date End Date Ryley Jeter MD [address] [place], [place] [address] PCP - General Family Medicine 10/08/23 Kristy Parker MD [address] [place] [address] Consulting Physician Vascular Surgery 11/09/24 System Manager Relationship Specialty Start Date End Date Ryley Jeter MD [address] [place], [place] [address] PCP - General Family Medicine 10/08/23 Kristy Parker MD [address] [place] [address] Consulting Physician Vascular Surgery 11/09/24 Team Status: Inactive Member Role Status Dates Ryley Jeter MD Primary Care Provider Active St art: February 06, 2025 End: February 06, 2025 Dr. Kerwin Tamayo MD Attending Provider Activ e Start: February 06, 2025 End: February 06, 2025 System Manager Relationship Specialty Start Date End Date Ryley Jeter MD [address] [place], [place] [address] PCP - General Family Medicine 10/08/23 Kristy Parker MD [address] [place] [address] Consulting Physician Vascular Surgery 11/09/24 System Manager Relationship Specialty Start Date End Date Ryley Jeter MD [address] [place], [place] [address] PCP - General Family Medicine 10/08/23 Kristy Parker MD [address] [place] [address] Consulting Physician Vascular Surgery 11/09/24 System Manager Relationship Specialty Start Date End Date Ryley Jeter MD [address] [place], [place] [address] PCP - General Family Medicine 10/08/23 Kristy Parker MD [address] [place] [address] Consulting Physician Vascular Surgery 11/09/24 System Manager Relationship Specialty Start Date End Date Generic Provider, No Assigned PcpMD PCP - General Internal Medicine 11/26/23 System Manager Relationship Specialty Start Date End Date Ryley Jeter MD [address] [place], [place] [address] PCP - General Family Medicine 10/08/23 Kristy Parker MD [address] [place] [address] Consulting Physician Vascular Surgery 11/09/24 System Manager Relationship Specialty Start Date End Date Ryley Jeter MD [address] [place], [place] [address] PCP - General Family Medicine 10/08/23 Kristy Parker MD [address] [place] [address] Consulting Physician Vascular Surgery 11/09/24 Team Status: Active Member Role Status Dates Ryley Jeter MD Primary Care Provider Active St art: April 03, 2025 Dr. John Brandon DO Emergency Provider Active Start: April 03, 2025 Dr. Dyana Hwang MD Admit Provider Active St art: April 03, 2025 Dr. Dyana Hwang MD Attending Provider Active Start: April 03, 2025 Dr. Dyana Hwang MD Other Provider Active St art: April 03, 2025 Team Status: Inactive Member Role Status Dates Ryley Jeter MD Primary Care Provider Active St art: April 03, 2025 End: April 10, 2025 Dr. John Brandon DO Emergency Provider Active Start: April 03, 2025 End: April 10, 2025 Dr. Dyana Hwang MD Admit Provider Active St art: April 03, 2025 End: April 10, 2025 Dr. Dyana Hwang MD Other Provider Active St art: April 03, 2025 End: April 10, 2025 Dr. Breezy Campbell MD Other Provider Active St art: April 03, 2025 End: April 10, 2025 Dr. Denisha Thompson MD Other Provider Active Start: April 03, 2025 End: April 10, 2025 Dr. Smooth Luis MD Other Provider Active St art: April 03, 2025 End: April 10, 2025 Dr. Grace Arnold MD Attending Provider Active Start: April 03, 2025 End: April 10, 2025 Dr. Grace Arnold MD Other Provider Active St art: April 03, 2025 End: April 10, 2025 Dr. Jose Moore MD Other Provider Active Start: April 03, 2025 End: April 10, 2025 Team Status: Active Member Role Status Dates Ryley Jeter MD Primary Care Provider Active St art: April 03, 2025 Dr. John Brandon DO Emergency Provider Active Start: April 03, 2025 Dr. Dyana Hwang MD Admit Provider Active St art: April 03, 2025 Dr. Dyana Hwang MD Other Provider Active St art: April 03, 2025 Dr. Tennille Limon MD Other Provider Active Start: April 03, 2025 Dr. Harinder Gill MD Other Provider Active Start: April 03, 2025 Dr. Moe Ortiz MD Other Provider Active Star t: April 03, 2025 Dr. Landry Fagan DO Attending Provider Active S tart: April 03, 2025 Dr. Landry Fagan DO Other Provider Active Start : April 03, 2025 Dr. Nancy Maharaj MD Other Provider Active Sta rt: April 03, 2025 Dr. Terry Davis MD Other Provider Active St art: April 03, 2025 Dr. Hadley Bermeo MD Other Provider Active S tart: April 03, 2025 Dr. Nina Lee MD Other Provider Active Start: April 03, 2025 Dr. Duncan Hussein MD Other Provider Active Start : April 03, 2025 Dr. Brock Jeffries MD Other Provider Active Start: April 03, 2025 Dr. Arnulfo Adame MD Other Provider Active Start : April 03, 2025 Dr. Bhakti Melara MD Other Provider Active Star t: April 03, 2025 Dr. Charlie Garcia MD Other Provider Active Sta rt: April 03, 2025 Dr. Isabela Woods MD Other Provider Active Sta rt: April 03, 2025 Dr. Adarsh Mosquera MD Other Provider Active Star t: April 03, 2025 Dr. Nico Storey MD Other Provider Active St art: April 03, 2025 Dr. Mick Jane MD Other Provider Active Star t: April 03, 2025 Dr. Dillon Moses DO Other Provider Active St art: April 03, 2025 Dr. Favian Moreno MD Other Provider Active Start: April 03, 2025 Dr. Chloe Gallardo MD Other Provider Active St art: April 03, 2025 Dr. Jose Rafael Dailey DO Other Provider Active Start: April 03, 2025 Dr. Nate Forbes MD Other Provider Active Star t: April 03, 2025 Dr. Donte Nolen MD Other Provider Active Sta rt: April 03, 2025 Dr. Grace Arnold MD Other Provider Active St art: April 03, 2025 Team Status: Active Member Role Status Dates Ryley Jeter MD Primary Care Provider Active St art: April 03, 2025 Dr. Koffi Gibbs MD Attending Provider Active Start: April 03, 2025 Team Status: Active Member Role Status Dates Ryley Jeter MD Primary Care Provider Active St art: April 04, 2025 Dr. John Brandon DO Emergency Provider Active Start: April 04, 2025 Dr. Dyana Hwang MD Admit Provider Active St art: April 04, 2025 Dr. Dyana Hwang MD Other Provider Active St art: April 04, 2025 Dr. Tennille Limon MD Other Provider Active Start: April 04, 2025 Dr. Harinder Gill MD Other Provider Active Start: April 04, 2025 Dr. Moe Ortiz MD Other Provider Active Star t: April 04, 2025 Dr. Landry Fagan DO Other Provider Active Start : April 04, 2025 Dr. Nancy Maharaj MD Other Provider Active Sta rt: April 04, 2025 Dr. Terry Davis MD Other Provider Active St art: April 04, 2025 Dr. Hadley Bermeo MD Other Provider Active S tart: April 04, 2025 Dr. Nina Lee MD Other Provider Active Start: April 04, 2025 Dr. Duncan Hussein MD Other Provider Active Start : April 04, 2025 Dr. Brock Jeffries MD Other Provider Active Start: April 04, 2025 Dr. Arnulfo Adame MD Other Provider Active Start : April 04, 2025 Dr. Bhakti Melara MD Other Provider Active Star t: April 04, 2025 Dr. Charlie Garcia MD Other Provider Active Sta rt: April 04, 2025 Dr. Isabela Woods MD Other Provider Active Sta rt: April 04, 2025 Dr. Adarsh Mosquera MD Other Provider Active Star t: April 04, 2025 Dr. Nico Storey MD Other Provider Active St art: April 04, 2025 Dr. Mick Jane MD Other Provider Active Star t: April 04, 2025 Dr. Dillon Moses DO Other Provider Active St art: April 04, 2025 Dr. Favian Moreno MD Other Provider Active Start: April 04, 2025 Dr. Chloe Gallardo MD Other Provider Active St art: April 04, 2025 Dr. Jose Rafael Dailey DO Other Provider Active Start: April 04, 2025 Dr. Nate Forbes MD Other Provider Active Star t: April 04, 2025 Dr. Donte Nolen MD Other Provider Active Sta rt: April 04, 2025 Dr. Grace Arnold MD Other Provider Active St art: April 04, 2025 Dr. Breezy Campbell MD Attending Provider Active Start: April 04, 2025 Dr. Breezy Campbell MD Other Provider Active St art: April 04, 2025 Team Status: Active Member Role Status Dates Ryley Jeter MD Primary Care Provider Active St art: April 04, 2025 Dr. John Brandon DO Emergency Provider Active Start: April 04, 2025 Dr. Dyana Hwang MD Admit Provider Active St art: April 04, 2025 Dr. Dyana Hwang MD Other Provider Active St art: April 04, 2025 Dr. [place] Limon MD Other Provider Active Start: April 04, 2025 Dr. Harinder Gill MD Other Provider Active Start: April 04, 2025 Dr. Moe Ortiz MD Other Provider Active Star t: April 04, 2025 Dr. Landry Fagan DO Other Provider Active Start : April 04, 2025 Dr. Nancy Maharaj MD Other Provider Active Sta rt: April 04, 2025 Dr. Terry Davis MD Other Provider Active St art: April 04, 2025 Dr. Hadley Bermeo MD Other Provider Active S tart: April 04, 2025 Dr. Nina Lee MD Other Provider Active Start: April 04, 2025 Dr. Duncan Hussein MD Other Provider Active Start : April 04, 2025 Dr. Brock Jeffries MD Other Provider Active Start: April 04, 2025 Dr. Arnulfo Adame MD Other Provider Active Start : April 04, 2025 Dr. Bhakti Melara MD Other Provider Active Star t: April 04, 2025 Dr. Charlie Garcia MD Other Provider Active Sta rt: April 04, 2025 Dr. Isabela Woods MD Other Provider Active Sta rt: April 04, 2025 Dr. Adarsh Mosquera MD Other Provider Active Star t: April 04, 2025 Dr. Nico Storey MD Other Provider Active St art: April 04, 2025 Dr. Mick Jane MD Other Provider Active Star t: April 04, 2025 Dr. Dillon Msoes , Other Provider Active St art: April 04, 2025 Dr. Favian Moreno MD Other Provider Active Start: April 04, 2025 Dr. Chloe Gallardo MD Other Provider Active St art: April 04, 2025 Dr. Jose Rafael Dailey DO Other Provider Active Start: April 04, 2025 Dr. Nate Forbes MD Other Provider Active Star t: April 04, 2025 Dr. Donte Nolen MD Other Provider Active Sta rt: April 04, 2025 Dr. Grace Arnold MD Attending Provider Active Start: April 04, 2025 Dr. Grace Arnold MD Other Provider Active St art: April 04, 2025 Dr. Breezy Campbell MD Other Provider Active St art: April 04, 2025 Dr. Denisha Thompson MD Other Provider Active Start: April 04, 2025 Team Status: Active Member Role Status Dates Ryley Jeter MD Primary Care Provider Active St art: April 05, 2025 Dr. John Brandon DO Emergency Provider Active Start: April 05, 2025 Dr. Dyana Hwang MD Admit Provider Active St art: April 05, 2025 Dr. Dyana Hwang MD Other Provider Active St art: April 05, 2025 Dr. Grace Arnold MD Other Provider Active St art: April 05, 2025 Dr. Breezy Campbell MD Other Provider Active St art: April 05, 2025 Dr. Tennille Limon MD Other Provider Active Start: April 05, 2025 Dr. Harinder Gill MD Other Provider Active Start: April 05, 2025 Dr. Moe Ortiz MD Other Provider Active Star t: April 05, 2025 Dr. Landry Fagan DO Attending Provider Active S tart: April 05, 2025 Dr. Landry Fagan DO Other Provider Active Start : April 05, 2025 Dr. Nancy Maharaj MD Other Provider Active Sta rt: April 05, 2025 Dr. Terry Davis MD Other Provider Active St art: April 05, 2025 Dr. Hadley Bermeo MD Other Provider Active S tart: April 05, 2025 Dr. Nina Lee MD Other Provider Active Start: April 05, 2025 Dr. Duncan Hussein MD Other Provider Active Start : April 05, 2025 Dr. Brock Jeffries MD Other Provider Active Start: April 05, 2025 Dr. Arnulfo Adame MD Other Provider Active Start : April 05, 2025 Dr. Bhakti Melara MD Other Provider Active Star t: April 05, 2025 Dr. Charlie Garcia MD Other Provider Active Sta rt: April 05, 2025 Dr. Isabela Woods MD Other Provider Active Sta rt: April 05, 2025 Dr. Adarsh Mosquera MD Other Provider Active Star t: April 05, 2025 Dr. Nico Storey MD Other Provider Active St art: April 05, 2025 Dr. Mick Jane MD Other Provider Active Star t: April 05, 2025 Dr. Dillon Moses DO Other Provider Active St art: April 05, 2025 Dr. Favian Moreno MD Other Provider Active Start: April 05, 2025 Dr. Chloe Gallardo MD Other Provider Active St art: April 05, 2025 Dr. Jose Rafael Dailey DO Other Provider Active Start: April 05, 2025 Dr. Nate Forbes MD Other Provider Active Star t: April 05, 2025 Dr. Donte Nolen MD Other Provider Active Sta rt: April 05, 2025 Dr. Denisha Thompson MD Other Provider Active Start: April 05, 2025 Team Status: Active Member Role Status Dates Ryley Jeter MD Primary Care Provider Active St art: April 05, 2025 Dr. John Brandon DO Emergency Provider Active Start: April 05, 2025 Dr. Dyana Hwang MD Admit Provider Active St art: April 05, 2025 Dr. Dyana Hwang MD Other Provider Active St art: April 05, 2025 Dr. Grace Arnold MD Attending Provider Active Start: April 05, 2025 Dr. Grace Arnold MD Other Provider Active St art: April 05, 2025 Dr. Breezy Campbell MD Other Provider Active St art: April 05, 2025 Dr. Tennille Limon MD Other Provider Active Start: April 05, 2025 Dr. Harinder Gill MD Other Provider Active Start: April 05, 2025 Dr. Moe Ortiz MD Other Provider Active Star t: April 05, 2025 Dr. Landry Fagan DO Other Provider Active Start : April 05, 2025 Dr. Nancy Maharaj MD Other Provider Active Sta rt: April 05, 2025 Dr. Terry Davis MD Other Provider Active St art: April 05, 2025 Dr. Hadley Bermeo MD Other Provider Active S tart: April 05, 2025 Dr. Nina Lee MD Other Provider Active Start: April 05, 2025 Dr. Duncan Hussein MD Other Provider Active Start : April 05, 2025 Dr. Brock Jeffries MD Other Provider Active Start: April 05, 2025 Dr. Arnulfo Adame MD Other Provider Active Start : April 05, 2025 Dr. Bhakti Melara MD Other Provider Active Star t: April 05, 2025 Dr. Charlie Garcia MD Other Provider Active Sta rt: April 05, 2025 Dr. Isabela Wodos MD Other Provider Active Sta rt: April 05, 2025 Dr. Adarsh Mosquera MD Other Provider Active Star t: April 05, 2025 Dr. Nico Storey MD Other Provider Active St art: April 05, 2025 Dr. Mick Jane MD Other Provider Active Star t: April 05, 2025 Dr. Dillon Moses DO Other Provider Active St art: April 05, 2025 Dr. Favian Moreno MD Other Provider Active Start: April 05, 2025 Dr. Chloe Gallardo MD Other Provider Active St art: April 05, 2025 Dr. Jose Rafael Dailey DO Other Provider Active Start: April 05, 2025 Dr. Nate Forbes MD Other Provider Active Star t: April 05, 2025 Dr. Donte Nolen MD Other Provider Active Sta rt: April 05, 2025 Dr. Denisha Thompson MD Other Provider Active Start: April 05, 2025 Dr. Smooth Luis MD Other Provider Active St art: April 05, 2025 Team Status: Active Member Role Status Dates Ryley Jeter MD Primary Care Provider Active St art: April 05, 2025 Dr. John Brandon DO Emergency Provider Active Start: April 05, 2025 Dr. Dyana Hwang MD Admit Provider Active St art: April 05, 2025 Dr. Dyana Hwang MD Other Provider Active St art: April 05, 2025 Dr. Grace Arnold MD Other Provider Active St art: April 05, 2025 Dr. Breezy Campbell MD Other Provider Active St art: April 05, 2025 Dr. Tennille Limon MD Other Provider Active Start: April 05, 2025 Dr. Harinder Gill MD Other Provider Active Start: April 05, 2025 Dr. Moe Ortiz MD Other Provider Active Star t: April 05, 2025 Dr. Landry Fagan DO Other Provider Active Start : April 05, 2025 Dr. Nancy Maharaj MD Other Provider Active Sta rt: April 05, 2025 Dr. Terry Davis MD Other Provider Active St art: April 05, 2025 Dr. Hadley Bermeo MD Other Provider Active S tart: April 05, 2025 Dr. Nina Lee MD Other Provider Active Start: April 05, 2025 Dr. Duncan Hussein MD Other Provider Active Start : April 05, 2025 Dr. Brock Jeffries MD Other Provider Active Start: April 05, 2025 Dr. Arnulfo Adame MD Other Provider Active Start : April 05, 2025 Dr. Bhakti Melara MD Other Provider Active Star t: April 05, 2025 Dr. Charlie Garcia MD Other Provider Active Sta rt: April 05, 2025 Dr. Isabela Woods MD Other Provider Active Sta rt: April 05, 2025 Dr. Adarsh Mosquera MD Other Provider Active Star t: April 05, 2025 Dr. Nico Storey MD Other Provider Active St art: April 05, 2025 Dr. Mick Jane MD Other Provider Active Star t: April 05, 2025 Dr. Dillon Moses DO Other Provider Active St art: April 05, 2025 Dr. Favian Moreno MD Other Provider Active Start: April 05, 2025 Dr. Chloe Gallardo MD Other Provider Active St art: April 05, 2025 Dr. Jose Rafael Dailey DO Other Provider Active Start: April 05, 2025 Dr. Nate Forbes MD Other Provider Active Star t: April 05, 2025 Dr. Donte Nolen MD Other Provider Active Sta rt: April 05, 2025 Dr. Denisha Thompson MD Other Provider Active Start: April 05, 2025 Dr. Barbie Martin MD Attending Provider Activ e Start: April 05, 2025 Team Status: Active Member Role Status Dates Ryley Jeter MD Primary Care Provider Active St art: April 05, 2025 Dr. John Brandon DO Emergency Provider Active Start: April 05, 2025 Dr. Dyana Hwang MD Admit Provider Active St art: April 05, 2025 Dr. Dyana Hwang MD Other Provider Active St art: April 05, 2025 Dr. Grace Arnold MD Other Provider Active St art: April 05, 2025 Dr. Breezy Campbell MD Other Provider Active St art: April 05, 2025 Dr. Tennille Limon MD Other Provider Active Start: April 05, 2025 Dr. Harinder Gill MD Other Provider Active Start: April 05, 2025 Dr. Moe Ortiz MD Other Provider Active Star t: April 05, 2025 Dr. Landry Fagan , Other Provider Active Start : April 05, 2025 Dr. Nancy Maharaj MD Other Provider Active Sta rt: April 05, 2025 Dr. Terry Davis MD Other Provider Active St art: April 05, 2025 Dr. Hadley Bermeo MD Other Provider Active S tart: April 05, 2025 Dr. Nina Lee MD Other Provider Active Start: April 05, 2025 Dr. Duncan Hussein MD Other Provider Active Start : April 05, 2025 Dr. Brock Jeffries MD Other Provider Active Start: April 05, 2025 Dr. Arnulfo Adame MD Other Provider Active Start : April 05, 2025 Dr. Bhakti Melara MD Other Provider Active Star t: April 05, 2025 Dr. Charlie Garcia MD Other Provider Active Sta rt: April 05, 2025 Dr. Isabela Woods MD Other Provider Active Sta rt: April 05, 2025 Dr. Adarsh Mosquera MD Other Provider Active Star t: April 05, 2025 Dr. Nico Storey MD Other Provider Active St art: April 05, 2025 Dr. Mick Jane MD Other Provider Active Star t: April 05, 2025 Dr. Dillon Moses DO Other Provider Active St art: April 05, 2025 Dr. Favian Moreno MD Other Provider Active Start: April 05, 2025 Dr. Chloe Gallardo MD Other Provider Active St art: April 05, 2025 Dr. Jose Rafael Dailey DO Other Provider Active Start: April 05, 2025 Dr. Nate Forbes MD Other Provider Active Star t: April 05, 2025 Dr. Donte Nolen MD Other Provider Active Sta rt: April 05, 2025 Dr. Denisha Thompson MD Other Provider Active Start: April 05, 2025 Dr. Smooth Luis MD Attending Provider Active Start: April 05, 2025 Dr. Smooth Luis MD Other Provider Active St art: April 05, 2025 Team Status: Active Member Role Status Dates Ryley Jeter MD Primary Care Provider Active St art: April 06, 2025 Dr. John Brandon , Emergency Provider Active Start: April 06, 2025 Dr. Dyana Hwang MD Admit Provider Active St art: April 06, 2025 Dr. Dyana Hwang MD Other Provider Active St art: April 06, 2025 Dr. Breezy Campbell MD Other Provider Active St art: April 06, 2025 Dr. Tennille Limon MD Other Provider Active Start: April 06, 2025 Dr. Harinder Gill MD Other Provider Active Start: April 06, 2025 Dr. Moe Ortiz MD Other Provider Active Star t: April 06, 2025 Dr. Landry Fagan DO Attending Provider Active S tart: April 06, 2025 Dr. Landry Fagan DO Other Provider Active Start : April 06, 2025 Dr. Nancy Maharaj MD Other Provider Active Sta rt: April 06, 2025 Dr. Terry Davis MD Other Provider Active St art: April 06, 2025 Dr. Hadley Bermeo MD Other Provider Active S tart: April 06, 2025 Dr. Nina Lee MD Other Provider Active Start: April 06, 2025 Dr. Duncan Hussein MD Other Provider Active Start : April 06, 2025 Dr. Brock Jeffries MD Other Provider Active Start: April 06, 2025 Dr. Arnulfo Adame MD Other Provider Active Start : April 06, 2025 Dr. Bhakti Melara MD Other Provider Active Star t: April 06, 2025 Dr. Charlie Garcia MD Other Provider Active Sta rt: April 06, 2025 Dr. Isabela Woods MD Other Provider Active Sta rt: April 06, 2025 Dr. Adarsh Mosquera MD Other Provider Active Star t: April 06, 2025 Dr. Nico Storey MD Other Provider Active St art: April 06, 2025 Dr. Mick Jane MD Other Provider Active Star t: April 06, 2025 Dr. Dillon Moses DO Other Provider Active St art: April 06, 2025 Dr. Favian Moreno MD Other Provider Active Start: April 06, 2025 Dr. Chloe Gallardo MD Other Provider Active St art: April 06, 2025 Dr. Jose Rafael Dailey DO Other Provider Active Start: April 06, 2025 Dr. Nate Forbes MD Other Provider Active Star t: April 06, 2025 Dr. Donte Nolen MD Other Provider Active Sta rt: April 06, 2025 Dr. Denisha Thompson MD Other Provider Active Start: April 06, 2025 Dr. Smooth Luis MD Other Provider Active St art: April 06, 2025 Dr. Jose Moore MD Other Provider Active Start: April 06, 2025 Dr. Grace Arnold MD Other Provider Active St art: April 06, 2025 Team Status: Active Member Role Status Dates Ryley Jeter MD Primary Care Provider Active St art: April 06, 2025 Dr. John Brandon DO Emergency Provider Active Start: April 06, 2025 Dr. Dyana Hwang MD Admit Provider Active St art: April 06, 2025 Dr. Dyana Hwang MD Other Provider Active St art: April 06, 2025 Dr. Breezy Campbell MD Other Provider Active St art: April 06, 2025 Dr. Tennille Limon MD Other Provider Active Start: April 06, 2025 Dr. Harinder Gill MD Other Provider Active Start: April 06, 2025 Dr. Moe Ortiz MD Other Provider Active Star t: April 06, 2025 Dr. Landry Fagan DO Other Provider Active Start : April 06, 2025 Dr. Nancy Maharaj MD Other Provider Active Sta rt: April 06, 2025 Dr. Terry Davis MD Other Provider Active St art: April 06, 2025 Dr. Hadley Bermeo MD Other Provider Active S tart: April 06, 2025 Dr. Nina Lee MD Other Provider Active Start: April 06, 2025 Dr. Duncan Hussein MD Other Provider Active Start : April 06, 2025 Dr. Brock Jeffries MD Other Provider Active Start: April 06, 2025 Dr. Arnulfo Adame MD Other Provider Active Start : April 06, 2025 Dr. Bhakti Melara MD Other Provider Active Star t: April 06, 2025 Dr. Charlie Garcia MD Other Provider Active Sta rt: April 06, 2025 Dr. Isabela Woods MD Other Provider Active Sta rt: April 06, 2025 Dr. Adarsh Mosquera MD Other Provider Active Star t: April 06, 2025 Dr. Ncio Storey MD Other Provider Active St art: April 06, 2025 Dr. Mick Jane MD Other Provider Active Star t: April 06, 2025 Dr. Dillon Moses DO Other Provider Active St art: April 06, 2025 Dr. Favian Moreno MD Other Provider Active Start: April 06, 2025 Dr. Chloe Gallardo MD Other Provider Active St art: April 06, 2025 Dr. Jose Rafael Dailey DO Other Provider Active Start: April 06, 2025 Dr. Nate Forbes MD Other Provider Active Star t: April 06, 2025 Dr. Donte Nolen MD Other Provider Active Sta rt: April 06, 2025 Dr. Denisha Thompson MD Other Provider Active Start: April 06, 2025 Dr. Smooth Luis MD Attending Provider Active Start: April 06, 2025 Dr. Smooth Luis MD Other Provider Active St art: April 06, 2025 Dr. Jose Moore MD Other Provider Active Start: April 06, 2025 Dr. Grace Arnold MD Other Provider Active St art: April 06, 2025 Team Status: Active Member Role Status Dates Ryley Jeter MD Primary Care Provider Active St art: April 06, 2025 Dr. John Brandon DO Emergency Provider Active Start: April 06, 2025 Dr. Dyana Hwang MD Admit Provider Active St art: April 06, 2025 Dr. Dyana Hwang MD Other Provider Active St art: April 06, 2025 Dr. Breezy Campbell MD Other Provider Active St art: April 06, 2025 Dr. Tennille Limon MD Other Provider Active Start: April 06, 2025 Dr. Harinder Gill MD Other Provider Active Start: April 06, 2025 Dr. Moe Ortiz MD Other Provider Active Star t: April 06, 2025 Dr. Landry Fagan DO Other Provider Active Start : April 06, 2025 Dr. Nancy Maharaj MD Other Provider Active Sta rt: April 06, 2025 Dr. Terry Davis MD Other Provider Active St art: April 06, 2025 Dr. Hadley Bermeo MD Other Provider Active S tart: April 06, 2025 Dr. Nina Lee MD Other Provider Active Start: April 06, 2025 Dr. Duncan Hussein MD Other Provider Active Start : April 06, 2025 Dr. Brock Jeffries MD Other Provider Active Start: April 06, 2025 Dr. Arnulfo Adame MD Other Provider Active Start : April 06, 2025 Dr. Bhakti Melara MD Other Provider Active Star t: April 06, 2025 Dr. Charlie Garcia MD Other Provider Active Sta rt: April 06, 2025 Dr. Isabela Woods MD Other Provider Active Sta rt: April 06, 2025 Dr. Adarsh Mosquera MD Other Provider Active Star t: April 06, 2025 Dr. Nico Storey MD Other Provider Active St art: April 06, 2025 Dr. Mick Jane MD Other Provider Active Star t: April 06, 2025 Dr. Dillon Moses DO Other Provider Active St art: April 06, 2025 Dr. Favian Moreno MD Other Provider Active Start: April 06, 2025 Dr. Chloe Gallardo MD Other Provider Active St art: April 06, 2025 Dr. Jose Rafael Dailey DO Other Provider Active Start: April 06, 2025 Dr. Nate Forbes MD Other Provider Active Star t: April 06, 2025 Dr. Donte Nolen MD Other Provider Active Sta rt: April 06, 2025 Dr. Denisha Thompson MD Other Provider Active Start: April 06, 2025 Dr. Smooth Lusi MD Other Provider Active St art: April 06, 2025 Dr. Jose Moore MD Attending Provider Active Start: April 06, 2025 Dr. Jose Moore MD Other Provider Active Start: April 06, 2025 Dr. Grace Arnold MD Other Provider Active St art: April 06, 2025 Team Status: Active Member Role Status Dates Ryley Jeter MD Primary Care Provider Active St art: April 07, 2025 Dr. John Brandon DO Emergency Provider Active Start: April 07, 2025 Dr. Dyana Hwang MD Admit Provider Active St art: April 07, 2025 Dr. Dyana Hwang MD Other Provider Active St art: April 07, 2025 Dr. Breezy Campbell MD Other Provider Active St art: April 07, 2025 Dr. Tennille Limon MD Other Provider Active Start: April 07, 2025 Dr. Harinder Gill MD Other Provider Active Start: April 07, 2025 Dr. Moe Ortiz MD Other Provider Active Star t: April 07, 2025 Dr. Landry Fagan DO Other Provider Active Start : April 07, 2025 Dr. Nancy Maharaj MD Other Provider Active Sta rt: April 07, 2025 Dr. Terry Davis MD Other Provider Active St art: April 07, 2025 Dr. Hadley Bermeo MD Other Provider Active S tart: April 07, 2025 Dr. Nina Lee MD Other Provider Active Start: April 07, 2025 Dr. Duncan Hussein MD Other Provider Active Start : April 07, 2025 Dr. Brock Jeffries MD Other Provider Active Start: April 07, 2025 Dr. Arnulfo Adame MD Other Provider Active Start : April 07, 2025 Dr. Bhakti Melara MD Other Provider Active Star t: April 07, 2025 Dr. Charlie Garcia MD Other Provider Active Sta rt: April 07, 2025 Dr. Isabela Woods MD Other Provider Active Sta rt: April 07, 2025 Dr. Adarsh Mosquera MD Other Provider Active Star t: April 07, 2025 Dr. Nico Storey MD Other Provider Active St art: April 07, 2025 Dr. Mick Jane MD Other Provider Active Star t: April 07, 2025 Dr. Dillon Moses DO Other Provider Active St art: April 07, 2025 Dr. Favian Moreno MD Other Provider Active Start: April 07, 2025 Dr. Chloe Gallardo MD Other Provider Active St art: April 07, 2025 Dr. Jose Rafael Dailey DO Other Provider Active Start: April 07, 2025 Dr. Nate Forbes MD Other Provider Active Star t: April 07, 2025 Dr. Donte Nolen MD Other Provider Active Sta rt: April 07, 2025 Dr. Denisha Thompson MD Other Provider Active Start: April 07, 2025 Dr. Smooth Luis MD Other Provider Active St art: April 07, 2025 Dr. Jose Moore MD Attending Provider Active Start: April 07, 2025 Dr. Jose Moore MD Other Provider Active Start: April 07, 2025 Dr. Grace Arnold MD Other Provider Active St art: April 07, 2025 Team Status: Active Member Role Status Dates Ryley Jeter MD Primary Care Provider Active St art: April 08, 2025 Dr. John Brandon DO Emergency Provider Active Start: April 08, 2025 Dr. Dyana Hwang MD Admit Provider Active St art: April 08, 2025 Dr. Dyana Hwang MD Other Provider Active St art: April 08, 2025 Dr. Breezy Campbell MD Other Provider Active St art: April 08, 2025 Dr. Tennille Limon MD Other Provider Active Start: April 08, 2025 Dr. Harinder Gill MD Other Provider Active Start: April 08, 2025 Dr. Moe Ortiz MD Other Provider Active Star t: April 08, 2025 Dr. Landry Fagan DO Other Provider Active Start : April 08, 2025 Dr. Nancy Maharaj MD Other Provider Active Sta rt: April 08, 2025 Dr. Terry Davis MD Other Provider Active St art: April 08, 2025 Dr. Hadley Bermeo MD Other Provider Active S tart: April 08, 2025 Dr. Nina Lee MD Other Provider Active Start: April 08, 2025 Dr. Duncan Hussein MD Other Provider Active Start : April 08, 2025 Dr. Brock Jeffries MD Other Provider Active Start: April 08, 2025 Dr. Arnulfo Adame MD Other Provider Active Start : April 08, 2025 Dr. Bhakti Melara MD Other Provider Active Star t: April 08, 2025 Dr. Charlie Garcia MD Other Provider Active Sta rt: April 08, 2025 Dr. Isabela Woods MD Other Provider Active Sta rt: April 08, 2025 Dr. Adarsh Mosquera MD Other Provider Active Star t: April 08, 2025 Dr. Nico Storey MD Other Provider Active St art: April 08, 2025 Dr. Mick Jane MD Other Provider Active Star t: April 08, 2025 Dr. Dillon Moses DO Other Provider Active St art: April 08, 2025 Dr. Favian Moreno MD Other Provider Active Start: April 08, 2025 Dr. Chloe Gallardo MD Other Provider Active St art: April 08, 2025 Dr. Jose Rafael Dailey DO Other Provider Active Start: April 08, 2025 Dr. Nate Forbes MD Other Provider Active Star t: April 08, 2025 Dr. Donte Nolen MD Other Provider Active Sta rt: April 08, 2025 Dr. Denisha Thompson MD Other Provider Active Start: April 08, 2025 Dr. Smooth Luis MD Other Provider Active St art: April 08, 2025 Dr. Jose Moore MD Attending Provider Active Start: April 08, 2025 Dr. Jose Moore MD Other Provider Active Start: April 08, 2025 Dr. Grace Arnold MD Other Provider Active St art: April 08, 2025 Team Status: Active Member Role Status Dates Ryley Jeter MD Primary Care Provider Active St art: April 09, 2025 Dr. John Brandon DO Emergency Provider Active Start: April 09, 2025 Dr. Dyana Hwang MD Admit Provider Active St art: April 09, 2025 Dr. Dyana Hwang MD Other Provider Active St art: April 09, 2025 Dr. Breezy Campbell MD Other Provider Active St art: April 09, 2025 Dr. Denisha Thompson MD Other Provider Active Start: April 09, 2025 Dr. Smooth Luis MD Other Provider Active St art: April 09, 2025 Dr. Grace Arnold MD Attending Provider Active Start: April 09, 2025 Dr. Grace Arnold MD Other Provider Active St art: April 09, 2025 Dr. Jose Moore MD Other Provider Active Start: April 09, 2025 Scheduled Active and Recently Administ ered Medications (unrecognized section and content) Medication Order 10/11/2023 10/12/2023 10/13/2023 albuterol 2.5 mg /3 mL (0.083 %) nebulizer solution 2.5 mg (COMPLETED) 2.5 mg, nebulization, Once, On Wed10/11/23 at 0150, For 1 dose 0203 (Given - Provider: Scarlet Ashford, DATA ENTRY OPERATOR - Comment: albuterol) amLODIPine (Norvasc) tablet 10 [...] to infuse two antibiotics at the same time)201 (Stopped - Provider: Jody Ball RN) azithromycin (Zithromax) tablet 500 mg (CANCELED) 500 mg, oral, Every 24 hours, First dose on Wed10/12/23 at 2100, Suspected Indication (Select all that apply): Pneumonia, Type of Therapy: Empiric 2103 (Given - Provider: Amber Jacobsen, FIDEL) budesonide (Pulmicort) 0.25 mg/2 mL nebulizer solution 0.25 mg 0.25 mg, nebulization, 2 times daily RT, First dose on Wed10/11/23 at 1900, Rinse mouth with water after use to reduce aftertaste and incidence of candidiasis. Do not swallow. 1900 (Given - Provider: Scarlet Ashford, OLIVIA) 0700 (Not Given - Provider: Amber Pascal, OLIVIA - Reason: Medication not available)1913 (Given - Provider: Malika Hemphill, OLIVIA) 06 (Given - Provider: Delmar Mcgowan, OLIVIA)1900 (Due) budesonide (Pulmicort) 0.5 mg/2 mL nebulizer solution 0.5 mg (CANCELED) 0.5 mg, nebulization, 2 times daily RT, First dose on Wed10/11/23 at 0600, Rinse mouth with water after use to reduce aftertaste and incidence of candidiasis. Do not swallow. 0603 (Given - Provider: Nancy Juares, OLIVIA) cefTRIAXone (Rocephin) 2 g IV in dextrose 5% 50 mL (CANCELED) 2 g, intravenous, at 100 mL/hr, Administer over 30 Minutes, Every 24 hours, First dose on Wed10/12/23 at 0000, premix bag, Suspected Indication (Select all that apply): Pneumonia, Type of Therapy: Empiric 0006 (New Bag - Provider: Jody Ball RN)0036 (Stopped - Provider: Jody Ball RN) 0012 (New Bag - Provider: Amber Jacobsen RN)0042 (Stopped - Provider: Amber Jacobsen RN) cefTRIAXone (Rocephin) IVPB 1 g (COMPLETED) 1 g, intravenous, at 100 mL/hr, Administer over 30 Minutes, Once, On Wed10/11/23 at 0225, For 1 dose, premix bag, Suspected Indication (Select all that apply): Pneumonia, Type of Therapy: Empiric 0242 (New Bag - Provider: Heather Leonardo, FIDEL)0312 (Stopped - Provider: Heather Leonardo, FIDEL) cholecalciferol (Vitamin D-3) tablet 5,000 Units 5,000 [...] at 1845 1858 (Given - Provider: Leticia Nagel RN) 0828 (Not Given - Provider: Moody Gorman RN - Reason: Patient/family refused) 1010 (Given - [...] in the room)1900 (Given - Provider: Leticia Nagel RN) 0120 (Given - Provider: Jody Ball RN - Comment: Ordered modified to SQ, new order made by Dr. Basilio. Not given intravenously, but subcutaneously) heparin (porcine) injection 5,000 Units 5,000 Units, subcutaneous, Every 8 hours, First dose (after last modification) on Wed10/12/23 at 0900 0828 (Given - Provider: Moody Gorman RN)1801 (Given - Provider: Moody Gorman RN) 0012 (Given - Provider: Amber Jacobsen RN)0900 (Not Given - Provider: Moody Gorman RN - Reason: Patient/family refused)1700 (Not Given - Provider: Moody Gorman RN - Reason: Patient/family refused) hydroCHLOROthiazide (Microzide) capsule 12.5 mg 12.5 mg, oral, Daily, First dose on Wed10/11/23 at 0900 0954 (Given - Provider: Geni aWll RN) 0829 (Given - Provider: Moody Gorman RN) 0954 (Given - Provider: Moody Gorman RN) insulin glargine (Lantus) injection 14 Units (CANCELED) 14 Units, subcutaneous, Daily before breakfast, First dose on Wed10/11/23 at 0700 0951 (Given - Provider: Geni Wall RN) 2104 (Given - Provider: Amber Jacobsen RN) insulin glargine (Lantus) injection 20 Units [...] Moody Gorman RN)1258 (Given - Provider: Moody Gorman, FIDEL)1846 (Given - Provider: Moody Gorman RN) insulin lispro (HumaLOG) injection 0-25 Units (CANCELED) [...] Wall, FIDEL)1200 (Not Given - Provider: Geni Wall RN - Reason: Contraindicated) insulin regular (HumuLIN R) injection 9 Units (COMPLETED) 9 Units, intravenous, Once, On Wed10/11/23 at 0320, For 1 dose 0320 (Given - Provider: Heather Leonardo RN) insulin regular (HumuLIN, NovoLIN) bolus from bag 0-10 Units (COMPLETED) 0-10 Units, intravenous, Administer over 2 Minutes, Once, On Wed10/11/23 at 1230, For 1 dose 1400 (Bolus from Bag - Provider: Leticia Nagel RN) ipratropium-albuteroL (Duo-Neb) 0.5-2.5 mg/3 mL nebulizer solution 3 mL (COMPLETED) 3 mL, nebulization, Once, On Wed10/11/23 at 0150, For 1 dose 0202 (Given - Provider: Scarlet Ashford RRT - Comment: allen) ipratropium-albuteroL (Duo-Neb) 0.5-2.5 mg/3 mL nebulizer solution 3 mL 3 mL, nebulization, 4 times daily, First dose on Wed10/11/23 at 0615 0600 (Given - Provider: Nancy Juares RRT)1153 (Given - Provider: Nancy Juares DATA ENTRY OPERATOR)1821 (Given - Provider: Scarlet Ashford RRT)2145 (Given - Provider: Scarlet Ashford RRT) 0652 (Given - Provider: Amber Pascal RRT)1156 (Given - Provider: Amber Pascal RRT)1913 (Given - Provider: Malika Hemphill RRT)2307 (Given - Provider: Malika Hemphill RRT) 0621 (Given - Provider: Delmar Mcgowan RRT)1152 (Given - Provider: Delmar Mcgowan RRT)1800 (Due [...] Heather Leonardo, FIDEL)0145 (Stopped - Provider: Heather Leonardo RN) sulfur hexafluoride microsphr (Lumason) injection 24.28 mg [...] or open. 0954 (Given - Provider: Geni Wall RN) 0938 (Given - Provider: Moody Gorman RN) 0955 (Given - Provider: Moody Gorman [...] Units/hr (0-20 mL/hr), intravenous, Continuous, Starting on 10/11/23 at 1230, Check blood glucose hourly while [...] to 3 units/hour)2238 (Stopped - Provider: Jody Ball RN) sodium chloride 0.9% infusion (CANCELED) 150 mL/hr, intravenous, Continuous, Starting on Wed10/11/23 at 0115 0115 (New Bag - Provider: Heather Leonardo, FIDEL)0149 (Stopped - Provider: Heather Leonardo, FIDEL) PRN Medication Order 10/11/2023 10/12/2023 10/13/2023 acetaminophen [...] at 1651 1704 (Given - Provider: Moody Gorman RN) 0012 (Given - Provider: Amber Jacobsen RN) magnesium hydroxide (Milk of Magnesia) 2,400 mg/10 [...] RRT)1428 (Rate/Dose Verify - Provider: Nancy Juares RRT)1822 (Start - Provider: Scarlet Ashford RRT) 0208 (Rate/Dose Verify - Provider: Scarlet Ashford RRT)0654 (Rate/Dose Change - Provider: Amber Pascal RRT - Comment: Decreased to RA)1034 (Rate/Dose Change - Provider: Amber Pascal RRT)1914 (Start - Provider: Malika Hemphill RRT)2310 (Start - Provider: Malika L [place], DATA ENTRY OPERATOR) 0623 (Rate/Dose Verify - Provider: Delmar Mcgowan, OLIVIA)0632 (Rate/Dose Change - Provider: Delmar Mcgowan, OLIVIA) Linked Groups Order Group 1: aspirin chewable [...] hours PRN, nausea/vomiting, first line, Starting on 10/11/23 at 0502
1st Line. Give IV if [...] On Wed11/26/23 at 2315, For 1 dose 233 (Given - Provider: Kristi Bowman RN) heparin (porcine) injection 4,000 Units (COMPLETED) 4,000 Units, intravenous, Once, On Wed11/26/23 at 2315, For 1 dose, Initial bolus. 233 (Given - Provider: Kristi Bowman RN) insulin regular (HumuLIN R) injection 10 Units (COMPLETED) 10 Units, intravenous, Once, On Wed11/26/23 at 2205, For 1 dose 221 (Given - Provider: Kristi Bowman RN) opxvckxdrffg-fsjaozawul-dwkemkpn (Zosyn) IV 3.375 g (COMPLETED) 3.375 g, [...] Empiric 2218 (New Bag - Provider: Kristi Bowman, FIDEL)2248 (Stopped - Provider: Kristi Bowman RN) vancomycin [...] Empiric 2224 (New Bag - Provider: Kristi Bowman, FIDEL)2324 (Stopped - Provider: Macy Posadas RN) Continuous [...] FIO2: 40, Keep O2 Sat Above: 90% 5 (Start - Provider: Ozzie Ha RRT) 0124 (Start - Provider: Ozzie Ha RRT) Scheduled Medication Order 11/29/2023 11/30/2023 12/01/2023 amLODIPine (NORVASC) tablet 10 mg 10 mg, Oral, Daily, First dose on 11/27/23 at 0900 0749 (Given - Provider: Jose Rafael Gill RN)0900 (Canceled Entry - Provider: Jose Rafael Gill RN) 0843 (Given - Provider: Karoline Merida RN) 0925 (Given - Provider: Sariah Clark RN) aspirin EC tablet 81 mg 81 mg, Oral, Daily, First dose on 11/27/23 at 0900, DO NOT CRUSH OR CHEW. 0750 (Given - Provider: Jose Rafael Gill, RN)0900 (Canceled Entry - Provider: Jose Rafael Gill RN) 0844 (Given - Provider: Karoline Merida, RN) 0925 (Given - Provider: Sariah Clark, RN) azithromycin (ZITHROMAX) 500 mg in sodium chloride (NS) 0.9% 250 mL (vialmate) 500 mg, Intravenous, at 250 mL/hr, Every 24 hours, First dose on 11/27/23 at 0430, Indication: CAP 0457 (New Bag - Provider: Sultana Baptiste RN)0557 (Stopped - Provider: Blanco Olivera, FIDEL) 0351 (New Bag - Provider: Nelia Flores, RN)0428 (Rate/Dose Verify - Provider: Nelia Flores, RN)0505 (Stopped - Provider: Nelia Flores, RN) 0503 (New Bag - Provider: Blanco Olivera, FIDEL)0515 (Rate/Dose Verify - Provider: Blanco Olivera RN)0603 (Stopped - Provider: Blanco Olivera, FIDEL) cefTRIAXone (ROCEPHIN) IVPB 2 g (premix) 2,000 mg, Intravenous, at 100 mL/hr, Every 24 hours, First dose on 11/27/23 at 0430, Indication: CAP 0412 (New Bag - Provider: Sultana Baptiste RN)0442 (Stopped - Provider: Blanco Olivera, FIDEL) 0509 (New Bag - Provider: Nelia Flores, FIDEL)0539 (Stopped - Provider: Nelia Flores RN) 0416 (New Bag - Provider: Blanco Olivera, FIDEL)0442 (Rate/Dose Verify - Provider: Blanco Olivera, FIDEL)0446 (Stopped - Provider: Blanco Olivera, FIDEL) ezetimibe (ZETIA) tablet 10 mg 10 mg, Oral, Daily, First dose on 11/27/23 at 0900 0749 (Given - Provider: Jose Rafael Gill, RN)0900 (Canceled Entry - Provider: Jose Rafael Gill RN) 0843 (Given - Provider: Karoline Merida, FIDEL) 0925 (Given - Provider: Sariah Clark, FIDEL) furosemide (LASIX) injection 20 mg 20 mg, Intravenous, Every 12 hours scheduled, First dose (after last modification) on Wed11/28/23 at 1800, Administer IV push at 20 mg per minute (doses higher than 100 mg require IVPB) 0611 (Given - Provider: Sultana Baptiste, RN)1800 (Given - Provider: Jose Rafael Gill, RN) 0549 (Given - Provider: Nelia Flores, RN)1707 (Given - Provider: Janice Spear, FIDEL) 0500 (Given - Provider: Blanco Olivera, FIDEL)1800 (Not Given - Provider: Sariah Clark RN - Reason: Loss of IV access) insulin [...] notifying physician 2151 (Given - Provider: Nelia Flores, FIDEL) insulin lispro (AdmeLOG,HumaLOG) injection 0-15 Units 0-15 Units, Subcutaneous, At bedtime, First dose on Wed11/28/23 at 2100, For Nightly Insulin Dose Coverage, use: CORRECTIVE (Only) for BG greater than 300, Nightly CORRECTIVE Dose Method: Follow Corrective SCALE, Corrective Scale to use for BG > 300: Insulin SENSITIVE Scale, For Downtime Calculator, use: Insulin SC NIGHTtime 2100 (Not Given - Provider: Nelia Flores RN [...] Merida RN) 1310 (Given - Provider: Sariah Clark RN) insulin lispro (AdmeLOG,HumaLOG) injection 0-30 Units [...] Reason: Patient/family refused)1706 (Given - Provider: Janice Spear RN) 1630 (Not Given - Provider: Sariah Clark [...] RN) 0730 (Not Given - Provider: Sariah Clark RN - Reason: Order parameters not met) metoprolol succinate (TOPROL-XL) 24 hr tablet 25 mg 25 mg, Oral, Daily, First dose on Wed11/27/23 at 0900, DO NOT CRUSH OR CHEW. 0749 (Given - Provider: Jose Rafael Gill, RN)0900 (Canceled Entry - Provider: Jose Rafael Gill RN) 0843 (Given - Provider: Karoline Merida, RN) 0925 (Given - Provider: Sariah Clark, RN) sodium chloride (PF) (NS) flush 5 mL(Linked Group 1) 5 mL, Intravenous, Every 8 hours scheduled, First dose on Wed11/27/23 at 0600, Saline lock 0611 (Given - Provider: Sultana Baptiste, RN)1409 (Given - Provider: Jose Rafael Gill, RN)2152 (Given - Provider: Nelia Flores, RN) 0551 (Given - Provider: Nelia Flores, RN)1400 (Canceled Entry - Provider: Karoline Merida, FIDEL)2017 (Given - Provider: Janice Spear, FIDEL)2200 (Canceled Entry - Provider: Janice Spear, FIDEL) 0600 (Canceled Entry - Provider: Blanco Olivera RN)1311 (Given - Provider: Sariah Clark, RN) tamsulosin (FLOMAX) 24 hr capsule 0.4 mg [...] to 0-49.4 mL/hr), Intravenous, Continuous, Starting on Wed11/27/23 at 0400, Choose one of the following protocols: Cardiac / Arterial, Bolus options: Protocol WITHOUT initial bolus only, For Downtime Calculator, use: Heparin Infusion Standard 0046 (Rate/Dose Verify - Provider: Sultana Baptiste RN)0124 (Paused - Provider: Blanco Olivera RN)0125 (Restarted - Provider: Blanco Olivera RN)0141 (Rate/Dose Change - Provider: Blanco Olivera RN)0145 (Paused - Provider: Blanco Olivera RN)0147 (Rate/Dose Change - Provider: Blanco Olivera RN)0149 (Stopped - Provider: Blanco Olivera RN)0341 (New Bag - Provider: Sultana Baptiste RN)0557 (Paused - Provider: Blanco Olivera RN)0604 (Restarted - Provider: Blanco Olivera RN)0616 (Rate/Dose Change - Provider: Sultana Baptiste RN)0617 (Rate/Dose Verify - Provider: Blanco Olivera RN)0619 (Rate/Dose Verify - Provider: Blanco Olivera RN)0622 (Paused - Provider: Blanco Olivera RN)0622 (Restarted - Provider: Blanco Olivera RN)0624 (Paused - Provider: Blanco Olivera RN)0626 (Paused - Provider: Blanco Olivera RN)0626 (Restarted - Provider: Blanco Olivera RN)1405 (Stopped - Provider: Blanco Olivera RN) PRN Medication Order 11/29/2023 11/30/2023 [...] 11/27/23 at 0337, Anginal pain, may repeat [id number] x3, then notify physician. DO NOT CRUSH [...] at 0312 1707 (Given - Provider: Janice Spear RN) 0415 (Given - Provider: Blanco Olivera RN) sodium chloride 0.9% (NS)(Linked Group [...] 0900 0911 (Given - Provid er: Karthik Sandoval, FIDEL) aspirin EC tablet 81 mg 81 mg, Oral, Daily, First dose on 10/28/24 at 0900, DO NOT CRUSH OR CHEW. 0911 (Given - Provid er: Karthik Sandoval RN) dextrose (D10W) 10% bolus 125 mL (COMPLETED) 125 mL, Intravenous, at 750 mL/hr, Once, On 10/28/24 at 0815, For 1 dose 0718 (New Bag - Prov ider: Julia Chan RN)1437 (Stopped - Provider: Karthik Sandoval, FIDEL) heparin (porcine) injection 5,000 Units 5,000 Units, Subcutaneous, Every 8 hours scheduled, First dose on 10/28/24 at 1400, Notify physician if patient refuses. 1330 (Given - Provid er: Karthik Sandoval, FIDEL) hydrALAZINE (APRESOLINE) tablet 50 mg 50 mg, Oral, 2 times daily, First dose on Wed10/27/24 at 1800 1919 (Given - Provider: Milana Dawson, FIDEL) 0800 (Hold - Provider: Karthik Sandoval RN [...] notifying physician 2009 (Given - Provider: Carlita Roth, FIDEL) insulin glargine (LANTUS) injection 5 Units (COMPLETED) [...] Units (COMPLETED) 5 Units, Subcutaneous, Once, On Wed10/28/24 at 1100, For 1 dose, If patient [...] notifying physician 1100 (Given - Provid er: Karthik Sandoval RN - Comment: Patient blood sugar of [...] Comment: 8 units instructed verbal order from [facility]) isosorbide mononitrate (IMDUR) 24 hr tablet 30 [...] 25 mg, Oral, Daily, First dose on 10/28/24 [...] orthostasis due to potential risk of syncope. 1918 (Given - Provider: Milana Dawson, RN) 910 (Given - Provider: Karthik Sandoval, RN) Continuous Medication Order 10/26/2024 10/27/2024 10/28/2024 insulin regular in 0.9 % NaCl (MYXREDLIN) 100 Units/100 mL infusion (CANCELED) 0.1-30 Units/hr (0.1-30 mL/hr), Intravenous, Titrated, Starting on Wed10/27/24 at 2230, Titrate insulin IV per MAR calculator to coincide with the scheduled point of care glucose results., For Downtime Calculator, use: Insulin Infusion DKA 2300 (New Bag - Provider: Julia Chan RN)2300 (Paused - Provider: Julia Chan RN)2300 (Restarted - Provider: Julia Chan RN)2302 (Rate/Dose Verify - Provider: Julia Chan RN)2305 (Stopped - Provider: Julia Chan RN)2307 (Associate Pump - Provider: Julia Chan RN)2311 (New Bag - Provider: Julia Chan RN)2326 [...] Chan RN)0206 (Rate/Dose Verify - Provider: Julia A Ruckel, RN)0214 (Rate/Dose Verify - Provider: Julia Chan [...] will conside)0725 (Rate/Dose Verify - Provider: Julia Chan, RN)0801 (Rate/Dose Verify - Provider: Julia Chan, RN)0930 (Stopped - Provider: Karthik Sandoval, RN) fentaNYL (SUBLIMAZE) injection (CANCELED) As needed, Starting on Wed10/27/24 at 0856, Intra-Procedure 0856 (Given - Provider: Warren Guardado, FIDEL) heparin (porcine) injection (CANCELED) As needed, Starting [...] 0856, Intra-Procedure 0856 (Given - Provider: Warren Guardado, FIDEL) nitroglycerin (TRIDIL) 50 mcg/ml 10 mL syringe [...] BE BASED ON THE PRIMARY CLINICAL RECORDS. [facility]. provides no warranty or guarantee of the accuracy or completeness of information in this document.
[2025-04-19] MEDS: Captopril 12.5 MG Tablet PO (02:35)
[2025-04-19] MEDS: Sodium Polystyrene Sulfonate 15 GM/60 ML UDC PO (02:40)
[2025-04-19] MEDS: Calcium Gluconate IV 3 GM in Syringe 1 EACH IV (02:44)
[2025-04-19] MEDS: Insulin Lispro 10 UNIT in Syringe 0 ML 6 UNIT IV (02:44)
--- OUTSIDE RECORDS SUMMARY | 2025-04-19 02:44 | XMS RPT_ITS | CCD ---
Author Organization [facility] Care Team Providers Care Laborer Vineyard Name Role Phone Nancy Mirza Unavailable Unavailable [...] Unavailable Nancy Mirza MD Primary Care Provider Yuki, Dr. Nancy Key Attending Unavaila ian [...] Mirza MD, Nancy Isbell Primary Care Provider yRley Jeter MD Primary Care Provider [phone] Dr. Ayanna Albert Attending Unavail able JORDAN, [...] Primary Care Unavailable Kristy Parker MD Unavailable [phone] Ryley Jeter MD Primary Care Provider Belkis [...] NIDIA GARAY Attending Unavailable Aleksandr VERDUZCO, Dr. Loepz Emergency Provider Jaiden URIBE, Dr. Dyana Paredes Admit Provider Jaiden URIBE, Dr. Dyana Paredes Attending Provider Jaiden URIBE, Dr. Dyana Paredes Other Provider Adrian URIBE, Dr. Tijerina Other Provider Jay URIBE, Dr. Denny Other Provider Janelle URIBE, Dr. Smooth Ahn Other Provider [phone] Florentino URIBE, Dr. Grace Wilson Attending Provider Florentino URIBE, Dr. Grace Wilson Other Provider [phone] Teresa URIBE, Dr. Jose Perez Other Provider Ashly URIBE, Dr. Zavala Other Provider Bridget URIBE, Dr. Pizano Other Provider Angel URIBE, Dr. Rosa Other Provider Dr. Landry Fagan DO Attending Provider Dr. Landry Fagan DO Other Provider Chuy URIBE, Dr. Nancy Delgado Other Provider Susan URIBE, Dr. Stewart Other Provider [phone] Elvie URIBE, Dr. Butcher Other Provider Jesus URIBE, Dr. Wood Other Provider Keenan URIBE, Dr. Song Other Provider Mervin URIBE, Dr. Gutiérrez Other Provider [phone] Deep URIBE, Dr. Arredondo Other Provider Dr. Bhakti Melara MD Other Provider Radha URIBE, Dr. Guerra Other [facility] a[facility]ela Woods MD, Dr. Mar Other Provider Demetri URIBE, Dr. Altamirano Other Provider Cordelia URIBE, Dr. Walsh Other Provider Lucinda URIBE, Dr. Barton Other Provider Josué VERDUZCO, Dr. Carranza Other Provider Tiffanie URIBE, Dr. Ballesteros Other Provider [phone] Jay Gallardo MD, Dr. Corona Other Provider Asim VERDUZCO, Dr. Mantilla Other Provider Andrei URIBE, Dr. Sullivan Other Provider [phone] Callum URIBE, Dr. Kent Other Provider Sai URIBE, Dr. [...] PATY ORTEGA Attending UnavailWOO Chow Attending Unavailable [facility] Primary Care Unavailable Landry Fagan Attending Unavailable Dyana Hwang Referring Unavailable Dyana Hwang L Admitting Unavailable Tennille Limon Consulting Unavailable [facility] Un[facility] Harinder Gill Consulting Unavailable Moe Ortiz Consulting Unavailable Landry Fagna Consulting Unavailable Nancy Maharaj Consulting Unavailable Terry [...] Florentino, Grace Katie Consulting Unavailable Jose Moore Attending Unavailable Breezy Campbell Consulting Unavailable Jay, Jayapradagos Consulting Unavailable Smooth Luis Consulting Unavailable Jose Moore Consulting Unavailable Floerntino, Grace Katie Attending Unavailable Ryley Jeter Attending Unavailable [facility] Primary Care Unavailable Kerwin Tamayo Attending [facility] Primary [facility] Unavailable Steffany, [facility] Unavailable Young Koroma Admitting [...] Allergy 08-24-20 23 Other (See Comments) [facility] HMG-CoA Reductase Inhibitors (statins) (3 sources) Hmg-Coa Reductase Inhibitors (Statins) Drug Allergy 01-08-20 16 [facility] (20 sources) Hmg-Coa Reductase Inhibitors (Statins); Translations: [AENHPYT-HVA-EON REDUCTASE INHIBITORS] Propensity to adverse reactions to drug 01-08-20 16 Other [facility] Work Phone: (6 sources) HMG-CoA reductase inhibitor Propensity to adverse reactions to drug 01-08-20 16 [facility] (20 sources) HMG-CoA reductase inhibitor Propensity to adverse reactions to drug 01-08-20 16 Unknown [facility] (17 sources) predniSONE; Translations: [predniSONE TABS] Drug Allergy 08-24-20 23 Other, Other (See Comments) [facility] (4 sources) predniSONE; Translations: [PREDNISONE] Drug Allergy 08-24-20 [facility] Repository (3 sources) Glucocorticoid Receptor Agonists Propensity to adverse reactions 04-06-20 24 Other [facility] Comment on above: Blood sugar increase (1 source) Corticosteroids Drug allergy (disorder) 04-03-20 [facility] Repository (1 source) Kbuwuqx-Jat-Vos Reductase Inhibitor Drug allergy (disorder) 04-03-20 25 [facility] Repository Medications Current Medications Medication Drug Class(es) [...] bowel movement in past 48 hours. Concentra chinyere product. Follow administration with 8 ounces of [...] 11/27/23 at 0337 Anginal pain, may repeat F5ynqalds x3, then notify physician. DO NOT CRUSH [...] PLACED TUBE OR TUBE less than 14 [place]. To administer dissolved tablet(s) mix with 4 [...] (porcine) injection 4,000 Units Start: 11-26-2023 take 3953-0640 [IU] intravenously every four hours as needed [...] Coronary arteriosclerosis; Translations: [Atherosclerotic heart disease of [place] coronary artery without angina pectoris] Onset: 10-17-2024 [...] W/Diff, Automatedon 04-01 Absolute Neut Normal 2.0-7.7 [facility] Comment on above: Result Comment: Canc elled via OM: Order cancelled - Patient discharged Performed By: #### L 100.0100 ####[facility] [address] [place], [address] HCT Normal 40-54 [facility] Comment on above: Result Comment: Canc elled via OM: Order cancelled - Patient discharged Performed By: #### L 100.0100 ####[facility] [address] [place], [address] HGB Normal 13.0-16.5 [facility] Comment on above: Result Comment: Canc elled via OM: Order cancelled - Patient discharged Performed By: #### L 100.0100 ####[facility] [address] [place], [address] MCH Normal 27.0-32.0 [facility] Comment on above: Result Comment: Canc elled via OM: Order cancelled - Patient discharged Performed By: #### L 100.0100 ####[facility] [address] [place], [address] MCHC Normal 32-36 [facility] Comment on above: Result Comment: Canc elled via OM: Order cancelled - Patient discharged Performed By: #### L 100.0100 ####[facility] [address] [place], [address] MCV Normal 80-94 [facility] Comment on above: Result Comment: Canc elled via OM: Order cancelled - Patient discharged Performed By: #### L 100.0100 ####[facility] [address] [place], [address] NEUT% Normal 47-70 [facility] Comment on above: Result Comment: Canc elled via OM: Order cancelled - Patient discharged Performed By: #### L 100.0100 ####[facility] [address] [place], [address] PLT Normal 150-450 [facility] Comment on above: Result Comment: Canc elled via OM: Order cancelled - Patient discharged Performed By: #### L 100.0100 ####[facility] [address] [place], [address] RBC Normal 4.6-6.2 [facility] Comment on above: Result Comment: Canc elled via OM: Order cancelled - Patient discharged Performed By: #### L 100.0100 ####[facility] [address] [place], [address] RDW CV Normal 11.6-14.6 [facility] Comment on above: Result Comment: Canc elled via OM: Order cancelled - Patient discharged Performed By: #### L 100.0100 ####[facility] [address] [place], [address] RDW SD Normal 35.1-43.9 [facility] Comment on above: Result Comment: Canc elled via OM: Order cancelled - Patient discharged Performed By: #### L 100.0100 ####[facility] [address] [place], [address] WBC Normal 4.4-11.0 [facility] Comment on above: Result Comment: Canc elled via OM: Order cancelled - Patient discharged Performed By: #### L 100.0100 ####[facility] [address] [place], [address] Absolute lymphocyte countOrd ered By: Grace Arnold on 04-10-2025 Lymphocytes Auto (Unsp spec) [#/Vol] 1.09 10*3/uL 0.83-4.51 [facility] Absolute neutrophil countOrd ered By: Grace Arnold on 04-10-2025 Neutrophils (Bld) [#/Vol] 9.6 10*3/uL High 2.0-7.7 [facility] Anion gap in Serum or Plasma Ordered By: Graceanabelle Arnold on 04-10-2025 Anion gap [Moles/Vol] 13 mmol/L 5-15 [facility] Automated lymphocyte count a s percentage of total leukocytesOrdered By: Grace Manjeetvinod on 04-10-2025 Lymphocytes/100 WBC Auto (Unsp spec) 9.4 % Low 19-41 [facility] BUN/creatinine ratioOrdered By: Grace Arnold on 04-10-2025 Urea nitrogen/Creatinine [Mass ratio] 22.8 mg/mg High 10-20 [facility] Basic Metabolic Profile (BMP )on 04-10-2025 BUN/CRE 22.8 RATIO High 10- [facility] Comment on above: Performed By: #### L 500.2500 ####[facility] [address] [place], [address] Calcium [Mass/Vol] 8.5 mg/dL Normal 7.6-11.0 [facility] Comment on above: Performed By: #### L 500.2500 ####[facility] [address] [place], [address] Chloride [Moles/Vol] 101 mmol/L Normal 98-108 [facility] Comment on above: Performed By: #### L 500.2500 ####[facility] [address] [place], [address] CO2 [Moles/Vol] 22.6 mmol/L Normal 21.0-32.0 [facility] Comment on above: Performed By: #### L 500.2500 ####[facility] [address] [place], [address] Creatinine [Mass/Vol] 3.48 mg/dL High 0.70-1.20 [facility] Comment on above: Performed By: #### L 500.2500 ####[facility] [address] [place], [address] ECRCL 15.24 ml/min Low 50-250 [facility] Comment on above: Performed By: #### L 500.2500 ####[facility] [address] [place], [address] GAP 13 Normal 5-15 [facility] Comment on above: Performed By: #### L 500.2500 ####[facility] [address] [place], [address] GFR/1.73 sq M.predicted among non-blacks MDRD (S/P/Bld) [Vol rate/Area] 17 mL/min/{1.73_m2} Low >60 [facility] Comment on above: Result Comment: mL/m in/1.73m2 CKD-EPI Creatinine Equation (2020) Performed By: #### L 500.2500 ####[facility] [address] [place], [address] Glucose [Mass/Vol] 287 mg/dL High 70-99 [facility] Comment on above: Performed By: #### L 500.2500 ####[facility] [address] [place], [address] Potassium [Moles/Vol] 4.2 mmol/L Normal 3.3-5.1 [facility] Comment on above: Performed By: #### L 500.2500 ####[facility] [address] [place], [address] Sodium [Moles/Vol] 137 mmol/L Normal 133-145 [facility] Comment on above: Performed By: #### L 500.2500 ####[facility] [address] [place], [address] Urea nitrogen [Mass/Vol] 79 mg/dL High 4-19 [facility] Comment on above: Performed By: #### L 500.2500 ####[facility] [address] [place], [address] Basophil percentageOrdered B y: Grace Arnold on 04-10-2025 Basophils/100 WBC (Bld) 0.1 % 0-1 [facility] Bedside Glucoseon 04-10-2025 FINGERSTICK GLU 223 mg/dL High 74-106 [facility] Comment on above: Result Comment: ADITI GEMENT OF PATIENT CARE PER NURSING PROTOCOL Performed By: #### L 501.080 ####[facility] [address] [place], [address] FINGERSTICK GLU 274 mg/dL High 74-106 [facility] Comment on above: Result Comment: ADITI GEMENT OF PATIENT CARE PER NURSING PROTOCOL Performed By: #### L 501.080 ####[facility] [address] [place], [address] CBC W/Diff, Automatedon 04-01 0-2024 Absolute Lymph 1.09 X10 3/uL Normal 0.83-4.51 [facility] Comment on above: Performed By: #### L 100.0100 ####[facility] [address] [place], [address] Absolute Neut 9.6 X10 3/uL High 2.0-7.7 [facility] Comment on above: Performed By: #### L 100.0100 ####[facility] [address] [place], [address] Basophils/100 WBC (Bld) 0.1 % Normal 0-1 [facility] Comment on above: Performed By: #### L 100.0100 ####[facility] [address] [place], [address] Eosinophils/100 WBC (Bld) 0.1 % Normal 0-5 [facility] Comment on above: Performed By: #### L 100.0100 ####[facility] [address] [place], [address] Erythrocyte distribution width (RBC) [Ratio] 13.6 % Normal 11.6-14.6 [facility] Comment on above: Performed By: #### L 100.0100 ####[facility] [address] [place], [address] Hematocrit (Bld) [Volume fraction] 26.0 % Low 40-54 [facility] Comment on above: Performed By: #### L 100.0100 ####[facility] [address] [place], [address] Hemoglobin (Bld) [Mass/Vol] 8.6 g/dL Low 13.0-16.5 [facility] Comment on above: Performed By: #### L 100.0100 ####[facility] [address] [place], [address] IG% 0.800 Normal 0.0-0.9 [facility] Comment on above: Result Comment: IG% - Immature Granulocytes (promyelocytes, myelocytes andmetamyelocytes) > 1% indicates that a LEFT SHIFT is Present. Performed By: #### L 100.0100 ####[facility] [address] [place], [address] Lymphocytes/100 WBC (Bld) 9.4 % Low 19-41 [facility] Comment on above: Performed By: #### L 100.0100 ####[facility] [address] [place], [address] MCH (RBC) [Entitic mass] 30.2 pg Normal 27.0-32.0 [facility] Comment on above: Performed By: #### L 100.0100 ####[facility] [address] [place], [address] MCHC (RBC) [Mass/Vol] 33.1 g/dL Normal 32-36 [facility] Comment on above: Performed By: #### L 100.0100 ####[facility] [address] [place], [address] MCV (RBC) [Entitic vol] 91.2 fL Normal 80-94 [facility] Comment on above: Performed By: #### L 100.0100 ####[facility] [address] [place], [address] Monocytes/100 WBC (Bld) 7.0 % Normal 0-10 [facility] Comment on above: Performed By: #### L 100.0100 ####[facility] [address] [place], [address] Neutrophils/100 WBC (Bld) 82.6 % High 47-70 [facility] Comment on above: Performed By: #### L 100.0100 ####[facility] [address] [place], [address] Nucleated RBC (Bld) [#/Vol] 0 10*3/uL Normal 0-5 [facility] Comment on above: Performed By: #### L 100.0100 ####[facility] [address] [place], [address] Platelet mean volume (Bld) [Entitic vol] 12.4 fL High 6.2-12.0 [facility] Comment on above: Performed By: #### L 100.0100 ####[facility] [address] [place], [address] Platelets (Bld) [#/Vol] 193 10*3/uL Normal 150-450 [facility] Comment on above: Performed By: #### L 100.0100 ####[facility] [address] [place], [address] RBC (Bld) [#/Vol] 2.85 10*6/uL Low 4.6-6.2 [facility] Comment on above: Performed By: #### L 100.0100 ####[facility] [address] [place], [address] RDW SD 45.1 fl High 35.1-43.9 [facility] Comment on above: Performed By: #### L 100.0100 ####[facility] [address] [place], [address] WBC (Bld) [#/Vol] 11.6 10*3/uL High 4.4-11.0 [facility] Comment on above: Performed By: #### L 100.0100 ####[facility] [address] [place], [address] Carbon dioxide, total [Moles /volume] in Central venous bloodOrdered By: Grace Arnold on 04-10-2025 CO2 [Moles/Vol] 22.6 mmol/L 21.0-32.0 [facility] Chloride assayOrdered By: Na na Florentino on 04-10-2025 Chloride [Moles/Vol] 101 mmol/L 98-108 [facility] Discharge Instructionon 04-01 Discharge Instruction Normal [facility] Eosinophil percentageOrdered By: Grace Arnold on 04-10-2025 Eosinophils/100 WBC (Bld) 0.1 % 0-5 [facility] Erythrocyte distribution wid th ratioOrdered By: Grace Arnold on 04-10-2025 Erythrocyte distribution width (RBC) [Ratio] 13.6 % 11.6-14.6 [facility] Erythrocyte distribution wid th standard deviationOrdered By: Grace Arnold on 04-10-2025 Erythrocyte distribution width (RBC) [Ratio] 45.1 fl High 35.1-43.9 [facility] Glomerular filtration rate ( GFR) estimation/1.73 sq m using serum, plasma, or whole bOrdered By: Grace Arnold on 04-10-2025 GFR/1.73 sq M.predicted among non-blacks MDRD (S/P/Bld) [Vol rate/Area] 17 mL/min/{1.73_m2} Low >60 [facility] Comment on above: mL/min/1.73m2 CKD-EP I Creatinine Equation (2020) [facility] deOrdered By: Grace Arnold on 04-10-2025 Glucose [Mass/Vol] 223 mg/dL High 74-106 [facility] Comment on above: MANAGEMENT OF PATIEN T CARE PER NURSING PROTOCOL Hematocrit Auto (Bld) [Volum e fraction]Ordered By: Grace Arnold on 04-10-2025 Hematocrit (Bld) [Volume fraction] 26.0 % Low 40-54 [facility] Hemoglobin measurementOrdere d By: Grace Arnold on 04-10-2025 Hemoglobin (Bld) [Mass/Vol] 8.6 g/dL Low 13.0-16.5 [facility] Immature granulocytes/100 WB C Auto (Bld)Ordered By: Grace Arnold on 04-10-2025 Immature granulocytes/100 WBC (Bld) 0.800 % 0.0-0.9 [facility] Comment on above: IG% - Immature Granu locytes (promyelocytes, myelocytes and metamyelocytes) > 1% indicates that a LEFT SHIFT is Present. MCV (mean corpuscular volume ) determinationOrdered By: Grace Arnold on 04-10-2025 MCV (RBC) [Entitic vol] 91.2 fL 80-94 [facility] Mean corpuscular hemoglobin (MCH) determinationOrdered By: Grace Arnold on 04-10-2025 MCH (RBC) [Entitic mass] 30.2 pg 27.0-32.0 [facility] Mean corpuscular hemoglobin concentration (MCHC) determinationOrdered By: Grace Arnold on 04-10-2025 MCHC (RBC) [Mass/Vol] 33.1 g/dL 32-36 [facility] Mean platelet volume determi nationOrdered By: Grace Arnold on 04-10-2025 Platelet mean volume (Bld) [Entitic vol] 12.4 fL High 6.2-12.0 [facility] Monocyte percentageOrdered B y: Grace Arnold on 04-10-2025 Monocytes/100 WBC (Bld) 7.0 % 0-10 [facility] Neutrophil percentageOrdered By: Grace Arnold on 04-10-2025 Neutrophils/100 WBC (Bld) 82.6 % High 47-70 [facility] Nucleated red blood cell per centageOrdered By: Grace Arnold on 04-10-2025 Nucleated RBC/100 WBC (Bld) [Ratio] 0 % 0-5 [facility] Platelet countOrdered By: Kesha Arnold on 04-10-2025 Platelets (Bld) [#/Vol] 193 10*3/uL 150-450 [facility] Potassium measurement (mass/ volume)Ordered By: Grace Arnold on 04-10-2025 Potassium (Unsp spec) [Mass/Vol] 4.2 mmol/L 3.3-5.1 [facility] RBC Auto (Bld) [#/Vol]Ordere d By: Grace Arnold on 04-10-2025 RBC (Bld) [#/Vol] 2.85 10*6/uL Low 4.6-6.2 [facility] Serum creatinine measurement (mass/volume)Ordered By: Grace Arnold on 04-10-2025 Creatinine [Mass/Vol] 3.48 mg/dL High 0.70-1.20 [facility] Serum glucose measurement (m ass/volume)Ordered By: Grace Arnold on 04-10-2025 Glucose [Mass/Vol] 287 mg/dL High 70-99 [facility] Serum or plasma calcium nikkie urement (mass/volume)Ordered By: Grace Arnold on 04-10-2025 Calcium [Mass/Vol] 8.5 mg/dL 7.6-11.0 [facility] Serum or plasma urea nitroge n measurement (mass/volume)Ordered By: Grace Arnold on 04-10-2025 Urea nitrogen [Mass/Vol] 79 mg/dL High 4-19 [facility] Sodium levelOrdered By: Grace Arnold on 04-10-2025 Sodium [Moles/Vol] 137 mmol/L 133-145 [facility] White blood cell (WBC) count Ordered By: Grace Arnold on 04-10-2025 WBC (Bld) [#/Vol] 11.6 10*3/uL High 4.4-11.0 [facility] ANCAon 04-09-2025 Atypical pANCA <1:20 Normal Neg:<1:20 [facility] Comment on above: Result Comment: The atypical pANCA pattern has been observed in asignificant percentage of patients with ulcerative colitis,primary sclerosing cholangitis and autoimmune hepatitis.Performed at: CB - [facility] [address] [place], [place] [id number] Director: Todd Anderson PhD, Phone: [phone] Performed By: #### L 3300.1200 ####[facility] [address] [place], [place], [address] Cytoplasmic Ab <1:20 Normal Neg:<1:20 [facility] Comment on above: Performed By: #### L 3300.1200 ####[facility] [address] [place], [place], [id number] Perinuclear Ab. <1:20 Normal Neg:<1:20 [facility] Comment on above: Result Comment: The presence of positive fluorescence exhibiting P-ANCA orC-ANCA patterns alone is not specific for the diagnosis ofWegener's Granulomatosis (WG) or microscopic polyangiitis.Decisions about treatment should not be based solely onANCA IFA results. The [employer] ANCA Group Consensusrecommends follow up testing of positive sera with both NH-3 and MPO-ANCA enzyme immunoassays. As many as 5% serumsamples are positive only by EIA. Ref. AM J Clin Rxxrsp1950;111:507-513. Performed By: #### L 3300.1200 ####[facility] [address] [place], [place], [address] Anti-Glomerular Basement Mem bon 04-09-2025 ANTI-GLOM BM Ab < 0.2 Normal 0.0-0.9 [facility] Comment on above: Result Comment: Perf ormed at: - [facility] [address] [id number] Director: Mignon Taylor MD, Phone: [phone] Performed By: #### L 6872.9984 ####[facility] [address] [place], [place], [address] Basic Metabolic Profile (BMP )on 04-09-2025 BUN/CRE 21.8 RATIO High 10-20 [facility] Comment on above: Performed By: #### L 500.2500 ####[facility] [facility] [address] [place], [address] Calcium [Mass/Vol] 8.5 mg/dL Normal 7.6-11.0 [facility] Comment on above: Performed By: #### L 500.2500 ####[facility] [address] [place], [address] Chloride [Moles/Vol] 104 mmol/L Normal 98-108 [facility] Comment on above: Performed By: #### L 500.2500 ####[facility] [address] [place], [address] CO2 [Moles/Vol] 21.6 mmol/L Normal 21.0-32.0 [facility] Comment on above: Performed By: #### L 500.2500 ####[facility] [address] [place], [address] Creatinine [Mass/Vol] 3.42 mg/dL High 0.70-1.20 [facility] Comment on above: Performed By: #### L 500.2500 ####[facility] [address] [place], [address] ECRCL 15.55 ml/min Low 50-250 [facility] Comment on above: Performed By: #### L 500.2500 ####[facility] [address] [place], [address] GAP 15 Normal 5-15 [facility] Comment on above: Performed By: #### L 500.2500 ####[facility] [address] [place], [address] GFR/1.73 sq M.predicted among non-blacks MDRD (S/P/Bld) [Vol rate/Area] 17 mL/min/{1.73_m2} Low >60 [facility] Comment on above: Result Comment: mL/m in/1.73m2 CKD-EPI Creatinine Equation (2020) Performed By: #### L 500.2500 ####[facility] [address] [place], [address] Glucose [Mass/Vol] 146 mg/dL High 70-99 [facility] Comment on above: Performed By: #### L 500.2500 ####[facility] [address] [place], [address] Potassium [Moles/Vol] 3.4 mmol/L Normal 3.3-5.1 [facility] Comment on above: Performed By: #### L 500.2500 ####[facility] [address] [place], [address] Sodium [Moles/Vol] 140 mmol/L Normal 133-145 [facility] Comment on above: Performed By: #### L 500.2500 ####[facility] [address] [place], [address] Urea nitrogen [Mass/Vol] 74 mg/dL High 4-19 [facility] Comment on above: Performed By: #### L 500.2500 ####[facility] [address] [place], [address] Bedside Glucoseon 04-09-2025 FINGERSTICK GLU 423 mg/dL High 74-106 [facility] Comment on above: Result Comment: ADITI GEMENT OF PATIENT CARE PER NURSING PROTOCOL Performed By: #### L 501.080 ####[facility] [address] [place], [address] FINGERSTICK GLU 217 mg/dL High 74-106 [facility] Comment on above: Result Comment: ADITI GEMENT OF PATIENT CARE PER NURSING PROTOCOL Performed By: #### L 501.080 ####[facility] [address] [place], [address] FINGERSTICK GLU 146 mg/dL High 74-106 [facility] Comment on above: Result Comment: ADITI GEMENT OF PATIENT CARE PER NURSING PROTOCOL Performed By: #### L 501.080 ####[facility] [address] [place], [address] FINGERSTICK GLU 141 mg/dL High 74-106 [facility] Comment on above: Result Comment: ADITI GEMENT OF PATIENT CARE PER NURSING PROTOCOL Performed By: #### L 501.080 ####[facility] [address] [place], [address] FINGERSTICK GLU 443 mg/dL High 74-106 [facility] Comment on above: Result Comment: ADITI GEMENT OF PATIENT CARE PER NURSING PROTOCOL Performed By: #### L 501.080 ####[facility] [address] [place], [address] FINGERSTICK GLU 475 mg/dL Invalid Interpretation Code 74-106 [facility] Comment on above: Result Comment: ADITI GEMENT OF PATIENT CARE PER NURSING PROTOCOL Performed By: #### L 501.080 ####[facility] [address] [place], [address] FINGERSTICK GLU 312 mg/dL High [address] [place] [address] Comment on above: Result Comment: ADITI GEMENT OF PATIENT CARE PER NURSING PROTOCOL Performed By: #### L 501.080 ####[facility] [address] [place], [address] CBC W/Diff, Automatedon 06-0 9-2024 Absolute Lymph 1.84 X10 3/uL Normal 0.83-4.51 [facility] Comment on above: Performed By: #### L 100.0100 ####[facility] [address] [place], [address] Absolute Neut 10.1 X10 3/uL High 2.0-7.7 [facility] Comment on above: Performed By: #### L 100.0100 ####[facility] [address] [place], [address] Basophils/100 WBC (Bld) 0.1 % Normal 0-1 [facility] Comment on above: Performed By: #### L 100.0100 ####[facility] [address] [place], [address] Eosinophils/100 WBC (Bld) 0.1 % Normal 0-5 [facility] Comment on above: Performed By: #### L 100.0100 ####[facility] [address] [place], [address] Erythrocyte distribution width (RBC) [Ratio] 14.0 % Normal 11.6-14.6 [facility] Comment on above: Performed By: #### L 100.0100 ####[facility] [address] [place], [address] Hematocrit (Bld) [Volume fraction] 25.5 % Low 40-54 [facility] Comment on above: Performed By: #### L 100.0100 ####[facility] [address] [place], [address] Hemoglobin (Bld) [Mass/Vol] 8.7 g/dL Low 13.0-16.5 [facility] Comment on above: Performed By: #### L 100.0100 ####[facility] [address] [place], [address] IG% 0.700 Normal 0.0-0.9 [facility] Comment on above: Result Comment: IG% - Immature Granulocytes (promyelocytes, myelocytes andmetamyelocytes) > 1% indicates that a LEFT SHIFT is Present. Performed By: #### L 100.0100 ####[facility] [address] [place], [address] Lymphocytes/100 WBC (Bld) 14.1 % Low 19-41 [facility] Comment on above: Performed By: #### L 100.0100 ####[facility] [address] [place], [address] MCH (RBC) [Entitic mass] 30.2 pg Normal 27.0-32.0 [facility] Comment on above: Performed By: #### L 100.0100 ####[facility] [address] [place], [address] MCHC (RBC) [Mass/Vol] 34.1 g/dL Normal 32-36 [facility] Comment on above: Performed By: #### L 100.0100 ####[facility] [address] [place], [address] MCV (RBC) [Entitic vol] 88.5 fL Normal 80-94 [facility] Comment on above: Performed By: #### L 100.0100 ####[facility] [address] [place], [address] Monocytes/100 WBC (Bld) 7.4 % Normal 0-10 [facility] Comment on above: Performed By: #### L 100.0100 ####[facility] [address] [place], [address] Neutrophils/100 WBC (Bld) 77.6 % High 47-70 [facility] Comment on above: Performed By: #### L 100.0100 ####[facility] [address] [place], [address] Nucleated RBC (Bld) [#/Vol] 0 10*3/uL Normal 0-5 [facility] Comment on above: Performed By: #### L 100.0100 ####[facility] [address] [place], [address] Platelet mean volume (Bld) [Entitic vol] 12.0 fL Normal 6.2-12.0 [facility] Comment on above: Performed By: #### L 100.0100 ####[facility] [address] [place], [address] Platelets (Bld) [#/Vol] 191 10*3/uL Normal 150-450 [facility] Comment on above: Performed By: #### L 100.0100 ####[facility] [address] [place], [address] RBC (Bld) [#/Vol] 2.88 10*6/uL Low 4.6-6.2 [facility] Comment on above: Performed By: #### L 100.0100 ####[facility] [address] [place], [address] RDW SD 45.6 fl High 35.1-43.9 [facility] Comment on above: Performed By: #### L 100.0100 ####[facility] [address] [place], [address] WBC (Bld) [#/Vol] 13.0 10*3/uL High 4.4-11.0 [facility] Comment on above: Performed By: #### L 100.0100 ####[facility] [address] [place], [address] Electrocardiogram reportOrde red By: Barbie Martin on 04-09-2025 EKG study [facility] Cardi[facility] [address] [place] [address] 12 Lead EKG 04/04/252111 MR#: [id number] Acct: [id number] Name: ENOC ARMANDO Rep #:[id number] : 1945 79 From: Barbie black MD Attending Dr: Dr. Grace Arnold MD Status: ADM IN Ordering Dr: Grace Arnold MD Date: 04/04/25 Location: [facility] Sex: M C Admitted: 04/03/25 Test Reason [...] Confirmed by VERONICA URIBE, MINERVA ([id number]), editor sound BLANCO BOCANEGRA ([id number]) on04/09/2025 7:17:16 AM Referred By: Confirmed By: MINERVA MARTIN MD 04/09/25 0717 Date _ Barbie Martin MD CC: Dr. Ryley Jeter MD; Dr. Grace Arnold MD ~ Signed [facility] Work Phone: EKG study [facility] Cardi[facility] Services [address] [place] [address] 12 Lead EKG 04/04/252 MR#: [id number] Acct: [id number] Name: ENOC ARMANDO Rep #:[id number] : 1945 79 From: Barbie black MD Attending Dr: Dr. Grace Arnold MD Status: ADM IN Ordering Dr: Grace Arnold MD Date: 04/04/25 Location: [facility] Sex: M C Admitted: 04/03/25 Test Reason [...] Confirmed by VERONICA URIBE, MINERVA ([id number]), editor sound BLACNO BOCANEGRA ([id number]) 04/09/2025 7:17:37 AM Referred By: Confirmed By: MINERVA MARTIN MD 04/09/25716 _ Barbie Martin MD CC: Dr. Ryley Jeter MD; Dr. Grace Arnold MD ~ Signed [facility] Work Phone: EKG study [facility] Cardi[facility] Services [address] [place] [address] 12 Lead EKG 04/04/252108 MR#: [id number] Acct: [id number] Name: ENOC ARMANDO Rep #:[id number] : 1945 79 From: Barbie black MD Attending Dr: Dr. Grace Arnold MD Status: ADM IN Ordering Dr: Grace Arnold MD Date: 04/04/25 Location: [facility] Sex: M C Admitted: 04/03/25 Test Reason [...] by VERONICA URIBE, MINERVA ([id number]), BLANCO Coyne ([id number]) on04/09/2025 7:17:54 AM Referred By: Confirmed By: MINERVA MARTIN MD 04/09/25716 _ Barbie Martin MD CC: Dr. Ryley Jeter MD; Dr. Grace Arnold MD ~ Signed [facility] Work Phone: EKG study [facility] [address] [place] [address] 12 Lead EKG 04/03/25 0005 MR#: [id number] Acct: [id number] Name: ENOC ARMANDO Rep #:[id number] : 1945 79 From: Barbie black MD Attending Dr: Dr. Jose Moore MD Status: ADM IN Ordering Dr: John Brandon DO Date: 04/03/25 Location: [facility] Sex: M C Admitted: 04/03/25 Test Reason [...] Confirmed by VERONICA URIBE, MINERVA ([id number]), editor sound BLANCO BOCANEGRA ([id number]) on04/09/2025 7:03:07 AM Referred By: Confirmed By: MINERVA MARTIN MD 04/09/25 0703 Date _ Barbie Martin MD CC: Dr. Ryley Jeter MD; Dr. Jose Moore MD; Dr. John Brandon DO ~ Signed [facility] Work Phone: EKG study [facility] [address] [place] [address] 12 Lead EKG 04/05/25 1204 MR#: [id number] Acct: [id number] Name: ENOC ARMANDO Rep #:[id number] : 1945 79 From: Barbie black MD Attending Dr: Dr. Jose Moore MD Status: ADM IN Ordering Dr: Grace Arnold MD Date: 04/05/25 Location: [facility] Sex: M C Admitted: 04/03/25 Test Reason [...] IS UNCONFIRMED Confirmed by VERONICA URIBE, MINERVA ([id number]), editor sound BLANCO BOCANEGRA ([id number]) on04/09/2025 6:57:50 AM Referred By: FLORENTINO Confirmed By: MINERVA MARTIN MD 04/09/25 0657 Date _ Barbie Martin MD CC: Dr. Ryley Jeter MD; Dr. Grace Arnold MD; Dr. Jose Moore MD ~ Signed [facility] Work Phone: Gram Stainon 04-09-2025 GS Acceptable Specimen? Yes (<25 Epithelial cells per/lpf) Gram Stain 2+ Yeast Like Organisms 2+ Gram positive cocci 1+ Gram positive rods Normal [facility] Comment on above: Performed By: #### M 100.2400, M100.2000 ####[facility] [address] [place], [place], [id number] Stool Occult Blood iFOBon STOB Positive Normal [facility] Comment on above: Performed By: #### M 100.7900 ####[facility] [address] [place], [place], [id number] Stool gastrointestinal hemog lobin detection by immunologic methodOrdered By: Jose Moore on 04-09-2025 Lower GI hemoglobin IA Ql (Stl) Positive Abnormal [facility] BRCon 04-08-2025 RC Normal Neg [facility] Comment on above: Result Comment: [id number] AP RC TRANSFUSED 04/08/25 1032 Performed By: #### B RC, BTS ####[facility] [address] [place], [address] Basic Metabolic Profile (BMP )on 04-08-2025 BUN/CRE 20.8 RATIO High 10-20 [facility] Comment on above: Performed By: #### L 500.2500 ####[facility] [address] [place], [address] Calcium [Mass/Vol] 8.5 mg/dL Normal 7.6-11.0 [facility] Comment on above: Performed By: #### L 500.2500 ####[facility] [address] [place], [address] Chloride [Moles/Vol] 100 mmol/L Normal 98-108 [facility] Comment on above: Performed By: #### L 500.2500 ####[facility] [address] [place], [address] CO2 [Moles/Vol] 20.3 mmol/L Low 21.0-32.0 [facility] Comment on above: Performed By: #### L 500.2500 ####[facility] [address] [place], [address] Creatinine [Mass/Vol] 2.97 mg/dL High 0.70-1.20 [facility] Comment on above: Performed By: #### L 500.2500 ####[facility] [address] [place], [address] ECRCL 16.83 ml/min Low 50-250 [facility] Comment on above: Performed By: #### L 500.2500 ####[facility] [address] [place], [address] GAP 16 High 5-15 [facility] Comment on above: Performed By: #### L 500.2500 ####[facility] [address] [place], [address] GFR/1.73 sq M.predicted among non-blacks MDRD (S/P/Bld) [Vol rate/Area] 20 mL/min/{1.73_m2} Low >60 [facility] Comment on above: Result Comment: mL/m in/1.73m2 CKD-EPI Creatinine Equation (2020) Performed By: #### L 500.2500 ####[facility] [address] [place], [address] Glucose [Mass/Vol] 395 mg/dL High 70-99 [facility] Comment on above: Performed By: #### L 500.2500 ####[facility] [address] [place], [address] Potassium [Moles/Vol] 4.3 mmol/L Normal 3.3-5.1 [facility] Comment on above: Performed By: #### L 500.2500 ####[facility] [address] [place], [address] Sodium [Moles/Vol] 136 mmol/L Normal 133-145 [facility] Comment on above: Performed By: #### L 500.2500 ####[facility] [address] [place], [address] Urea nitrogen [Mass/Vol] 62 mg/dL High 4-19 [facility] Comment on above: Performed By: #### L 500.2500 ####[facility] [address] [place], [address] Bedside Glucoseon 04-08-2025 FINGERSTICK GLU 415 mg/dL High 74-106 [facility] Comment on above: Result Comment: ADITI ESCOBEDO OF PATIENT CARE PER NURSING PROTOCOL Performed By: #### L 501.080 ####[facility] [address] [place], [address] FINGERSTICK GLU 420 mg/dL High 74-106 [facility] Comment on above: Result Comment: ADITI GEMENT OF PATIENT CARE PER NURSING PROTOCOL Performed By: #### L 501.080 ####[facility] [address] [place], [address] FINGERSTICK GLU 361 mg/dL High 74-106 [facility] Comment on above: Result Comment: ADITI GEMENT OF PATIENT CARE PER NURSING PROTOCOL Performed By: #### L 501.080 ####[facility] [address] [place], [address] CBC W/Diff, Automatedon 06-0 8-2025 Absolute Lymph 0.63 X10 3/uL Low 0.83-4.51 [facility] Comment on above: Performed By: #### L 100.0100 ####[facility] [address] [place], [address] Absolute Neut 7.6 X10 3/uL Normal 2.0-7.7 [facility] Comment on above: Performed By: #### L 100.0100 ####[facility] [address] [place], [address] Basophils/100 WBC (Bld) 0.0 % Normal 0-1 [facility] Comment on above: Performed By: #### L 100.0100 ####[facility] [address] [place], [address] Eosinophils/100 WBC (Bld) 0.0 % Normal 0-5 [facility] Comment on above: Performed By: #### L 100.0100 ####[facility] [address] [place], [address] Erythrocyte distribution width (RBC) [Ratio] 13.5 % Normal 11.6-14.6 [facility] Comment on above: Performed By: #### L 100.0100 ####[facility] [address] [place], [address] Hematocrit (Bld) [Volume fraction] 21.5 % Low 40-54 [facility] Comment on above: Performed By: #### L 100.0100 ####[facility] [address] [place], [address] Hemoglobin (Bld) [Mass/Vol] 6.9 g/dL Low 13.0-16.5 [facility] Comment on above: Performed By: #### L 100.0100 ####[facility] [address] [place], [address] IG% 0.500 Normal 0.0-0.9 [facility] Comment on above: Result Comment: IG% - Immature Granulocytes (promyelocytes, myelocytes andmetamyelocytes) > 1% indicates that a LEFT SHIFT is Present. Performed By: #### L 100.0100 ####[facility] [address] [place], [address] Lymphocytes/100 WBC (Bld) 7.3 % Low 19-41 [facility] Comment on above: Performed By: #### L 100.0100 ####[facility] [address] [place], [address] MCH (RBC) [Entitic mass] 29.5 pg Normal 27.0-32.0 [facility] Comment on above: Performed By: #### L 100.0100 ####[facility] [address] [place], [address] MCHC (RBC) [Mass/Vol] 32.1 g/dL Normal 32-36 [facility] Comment on above: Performed By: #### L 100.0100 ####[facility] [address] [place], [address] MCV (RBC) [Entitic vol] 91.9 fL Normal 80-94 [facility] Comment on above: Performed By: #### L 100.0100 ####[facility] [address] [place], [address] Monocytes/100 WBC (Bld) 4.2 % Normal 0-10 [facility] Comment on above: Performed By: #### L 100.0100 ####[facility] [address] [place], [address] Neutrophils/100 WBC (Bld) 88.0 % High 47-70 [facility] Comment on above: Performed By: #### L 100.0100 ####[facility] [address] [place], [address] Nucleated RBC (Bld) [#/Vol] 0 10*3/uL Normal 0-5 [facility] Comment on above: Performed By: #### L 100.0100 ####[facility] [address] [place], [address] Platelet mean volume (Bld) [Entitic vol] 12.5 fL High 6.2-12.0 [facility] Comment on above: Performed By: #### L 100.0100 ####[facility] [address] [place], [address] Platelets (Bld) [#/Vol] 176 10*3/uL Normal 150-450 [facility] Comment on above: Performed By: #### L 100.0100 ####[facility] [address] [place], [address] RBC (Bld) [#/Vol] 2.34 10*6/uL Low 4.6-6.2 [facility] Comment on above: Performed By: #### L 100.0100 ####[facility] [address] [place], [address] RDW SD 44.2 fl High 35.1-43.9 [facility] Comment on above: Performed By: #### L 100.0100 ####[facility] [address] [place], [address] WBC (Bld) [#/Vol] 8.6 10*3/uL Normal 4.4-11.0 [facility] Comment on above: Performed By: #### L 100.0100 ####[facility] [address] [place], [address] Culture, Blood (WB)on 2024 CUB No growth in 5 days. Normal [facility] Comment on above: Performed By: #### L 503.6005, M200.1000 ####[facility] [address] [place], [address] Glucoseon 04-08-2025 Glucose [Mass/Vol] 528 mg/dL Invalid Interpretation Code 70-99 [facility] Comment on above: Result Comment: Crit ical Result(s) Called at 2220: by:??NBURNS TO EAFFOLTERResults read back by same. Performed By: #### L 501.0100 ####[facility] [address] [place], [address] Respiratory Cultureon 2024 RESPC Mixed normal respiratory kyler. No Streptococcus pneumoniae, beta-hemolytic Streptococcus or Staphylococcus aureus isolated. Normal [facility] Comment on above: Performed By: #### M 100.2400, M100.2000 ####[facility] [address] [place], [address] Type AND Screenon 04-08-2025 ABO and Rh group Nom (Bld) Blood group A Rh(D) positive [facility] Comment on above: Order Comment: CMV N EG? NNumber of units to transfuse: 1Reason for Ordering Blood: AcuteAre the blood/blood products to be transfused? YIs the patient having/had surgery? NWhen Ilir Performed By: #### B RC, BTS ####[facility] [address] [place], [address] Ab SCREEN GEL Negative Normal [facility] Comment on above: Order Comment: CMV N EG? NNumber of units to transfuse: 1Reason for Ordering Blood: AcuteAre the blood/blood products to be transfused? YIs the patient having/had surgery? NWart Hazel Performed By: #### B HOUSTON BTS ####[facility] [address] [place], [address] Basic Metabolic Profile (BMP )on 04-07-2025 BUN/CRE 22.1 RATIO High 10-20 [facility] Comment on above: Performed By: #### L 500.2500 ####[facility] [address] [place], [address] Calcium [Mass/Vol] 8.2 mg/dL Normal 7.6-11.0 [facility] Comment on above: Performed By: #### L 500.2500 ####[facility] [address] [place], [address] Chloride [Moles/Vol] 99 mmol/L Normal 98-108 [facility] Comment on above: Performed By: #### L 500.2500 ####[facility] [address] [place], [address] CO2 [Moles/Vol] 21.3 mmol/L Normal 21.0-32.0 [facility] Comment on above: Performed By: #### L 500.2500 ####[facility] [address] [place], [address] Creatinine [Mass/Vol] 3.61 mg/dL High 0.70-1.20 [facility] Comment on above: Performed By: #### L 500.2500 ####[facility] [address] [place], [address] ECRCL 14.50 ml/min Low 50-250 [facility] Comment on above: Performed By: #### L 500.2500 ####[facility] [address] [place], [address] GAP 16 High 5-15 [facility] Comment on above: Performed By: #### L 500.2500 ####[facility] [address] [place], [address] GFR/1.73 sq M.predicted among non-blacks MDRD (S/P/Bld) [Vol rate/Area] 16 mL/min/{1.73_m2} Low >60 [facility] Comment on above: Result Comment: mL/m in/1.73m2 CKD-EPI Creatinine Equation (2020) Performed By: #### L 500.2500 ####[facility] [address] [place], [address] Glucose [Mass/Vol] 423 mg/dL High 70-99 [facility] Comment on above: Performed By: #### L 500.2500 ####[facility] [address] [place], [address] Potassium [Moles/Vol] 4.3 mmol/L Normal 3.3-5.1 [facility] Comment on above: Performed By: #### L 500.2500 ####[facility] [address] [place], [address] Sodium [Moles/Vol] 137 mmol/L Normal 133-145 [facility] Comment on above: Performed By: #### L 500.2500 ####[facility] [address] [place], [address] Urea nitrogen [Mass/Vol] 80 mg/dL High 4-19 [facility] Comment on above: Performed By: #### L 500.2500 ####[facility] [address] [place], [address] Bedside Glucoseon 04-07-2025 FINGERSTICK GLU 402 mg/dL High 74-106 [facility] Comment on above: Result Comment: ADITI GEMENT OF PATIENT CARE PER NURSING PROTOCOL Performed By: #### L 501.080 ####[facility] [address] [place], [address] FINGERSTICK GLU 330 mg/dL High [address] [place] [address] Comment on above: Result Comment: ADITI GEMENT OF PATIENT CARE PER NURSING PROTOCOL Performed By: #### L 501.080 ####[facility] [address] [place], [address] FINGERSTICK GLU 333 mg/dL High [address] [place] [address] Comment on above: Result Comment: ADITI GEMENT OF PATIENT CARE PER NURSING PROTOCOL Performed By: #### L 501.080 ####[facility] [address] [place], [address] FINGERSTICK GLU 392 mg/dL High -[address] [place] [address] Comment on above: Result Comment: ADITI GEMENT OF PATIENT CARE PER NURSING PROTOCOL Performed By: #### L 501.080 ####[facility] [address] [place], [address] FINGERSTICK GLU 280 mg/dL High [address] [place] [address] Comment on above: Result Comment: ADITI GEMENT OF PATIENT CARE PER NURSING PROTOCOL Performed By: #### L 501.080 ####[facility] [address] [place], [address] CBC W/Diff, Automatedon 06-0 -2024 Absolute Lymph 1.30 X10 3/uL Normal 0.83-4.51 [facility] Comment on above: Performed By: #### L 100.0100 ####[facility] [address] [place], [address] Absolute Neut 8.2 X10 3/uL High 2.0-7.7 [facility] Comment on above: Performed By: #### L 100.0100 ####[facility] [address] [place], [address] Basophils/100 WBC (Bld) 0.0 % Normal 0-1 [facility] Comment on above: Performed By: #### L 100.0100 ####[facility] [address] [place], [address] Eosinophils/100 WBC (Bld) 0.1 % Normal 0-5 [facility] Comment on above: Performed By: #### L 100.0100 ####[facility] [address] [place], [address] Erythrocyte distribution width (RBC) [Ratio] 13.7 % Normal 11.6-14.6 [facility] Comment on above: Performed By: #### L 100.0100 ####[facility] [address] [place], [address] Hematocrit (Bld) [Volume fraction] 23.1 % Low 40-54 [facility] Comment on above: Performed By: #### L 100.0100 ####[facility] [address] [place], [address] Hemoglobin (Bld) [Mass/Vol] 7.7 g/dL Low 13.0-16.5 [facility] Comment on above: Performed By: #### L 100.0100 ####[facility] [address] [place], [address] IG% 0.300 Normal 0.0-0.9 [facility] Comment on above: Result Comment: IG% - Immature Granulocytes (promyelocytes, myelocytes andmetamyelocytes) > 1% indicates that a LEFT SHIFT is Present. Performed By: #### L 100.0100 ####[facility] [address] [place], [address] Lymphocytes/100 WBC (Bld) 12.6 % Low 19-41 [facility] Comment on above: Performed By: #### L 100.0100 ####[facility] [address] [place], [address] MCH (RBC) [Entitic mass] 30.8 pg Normal 27.0-32.0 [facility] Comment on above: Performed By: #### L 100.0100 ####[facility] [address] [place], [address] MCHC (RBC) [Mass/Vol] 33.3 g/dL Normal 32-36 [facility] Comment on above: Performed By: #### L 100.0100 ####[facility] [address] [place], [address] MCV (RBC) [Entitic vol] 92.4 fL Normal 80-94 [facility] Comment on above: Performed By: #### L 100.0100 ####[facility] [address] [place], [address] Monocytes/100 WBC (Bld) 8.0 % Normal 0-10 [facility] Comment on above: Performed By: #### L 100.0100 ####[facility] [address] [place], [address] Neutrophils/100 WBC (Bld) 79.0 % High 47-70 [facility] Comment on above: Performed By: #### L 100.0100 ####[facility] [address] [place], [address] Nucleated RBC (Bld) [#/Vol] 0 10*3/uL Normal 0-5 [facility] Comment on above: Performed By: #### L 100.0100 ####[facility] [address] [place], [address] Platelet mean volume (Bld) [Entitic vol] 12.3 fL High 6.2-12.0 [facility] Comment on above: Performed By: #### L 100.0100 ####[facility] [address] [place], [address] Platelets (Bld) [#/Vol] 191 10*3/uL Normal 150-450 [facility] Comment on above: Performed By: #### L 100.0100 ####[facility] [address] [place], [address] RBC (Bld) [#/Vol] 2.50 10*6/uL Low 4.6-6.2 [facility] Comment on above: Performed By: #### L 100.0100 ####[facility] [address] [place], [address] RDW SD 46.1 fl High 35.1-43.9 [facility] Comment on above: Performed By: #### L 100.0100 ####[facility] [address] [place], [address] WBC (Bld) [#/Vol] 10.4 10*3/uL Normal 4.4-11.0 [facility] Comment on above: Performed By: #### L 100.0100 ####[facility] [address] [place], [address] Ferritinon 04-07-2025 Ferritin [Mass/Vol] 69 ng/mL Normal 37-417 [facility] Comment on above: Performed By: #### L 503.6030, L503.6550 ####[facility] [address] [place], [address] Gram stainOrdered By: Dyana Hwang on 04-07-2025 Microscopic observation Gram stain Nom (Unsp spec) [facility] Iron measurement (mass/mass) Ordered By: Jose Moore on 04-07-2025 Iron (Unsp spec) [Mass/Mass] 27 ug/dL Low 65-175 [facility] Iron+Iron Binding Capacityon 04-07-2025 Iron [Mass/Vol] 27 ug/dL Low 65-175 [facility] Comment on above: Performed By: #### L 503.6030, L503.6550 ####[facility] [address] [place], [address] IRON SATURATION 10.0 Normal 9-55 [facility] Comment on above: Performed By: #### L 503.6030, L503.6550 ####[facility] [address] [place], [address] TIBC 270 ug/dL Normal 250-450 [facility] Comment on above: Performed By: #### L 503.6030, L503.6550 ####[facility] [address] [place], [address] UIBC 243 ug/dL Normal 228-428 [facility] Comment on above: Performed By: #### L 503.6030, L503.6550 ####[facility] [address] [place], [address] Microbial respiratory cultur eOrdered By: Dyana Hwang on 04-07-2025 Microorganism identified Cx Nom (Unsp spec) or Staphylococcus aureus isolated. [facility] No Panel InformationOrdered By: Jose Moore on 04-07-2025 Unsaturated Iron Binding Capacity 243 ug/dL 228-428 [facility] Serum or plasma ferritin heriberto surement (mass/volume)Ordered By: Jose Moore on 04-07-2025 Ferritin [Mass/Vol] 69 ng/mL 37-417 [facility] Serum or plasma iron saturat ion measurement (mass fraction)Ordered By: Jose Moore on 04-07-2025 Iron saturation [Mass fraction] 10.0 % 9- [facility] Basic Metabolic Profile (BMP )on 04-06-2025 BUN/CRE 21.8 RATIO High 10-20 [facility] Comment on above: Performed By: #### L 500.2500 ####[facility] [address] [place], [address] Calcium [Mass/Vol] 8.3 mg/dL Normal 7.6-11.0 [facility] Comment on above: Performed By: #### L 500.2500 ####[facility] [address] [place], [address] Chloride [Moles/Vol] 100 mmol/L Normal 98-108 [facility] Comment on above: Performed By: #### L 500.2500 ####[facility] [address] [place], [address] CO2 [Moles/Vol] 21.0 mmol/L Normal 21.0-32.0 [facility] Comment on above: Performed By: #### L 500.2500 ####[facility] [address] [place], [address] Creatinine [Mass/Vol] 4.73 mg/dL High 0.70-1.20 [facility] Comment on above: Performed By: #### L 500.2500 ####[facility] [address] [place], [address] ECRCL 11.24 ml/min Low 50-250 [facility] Comment on above: Performed By: #### L 500.2500 ####[facility] [address] [place], [address] GAP 18 High 5-15 [facility] Comment on above: Performed By: #### L 500.2500 ####[facility] [address] [place], [address] GFR/1.73 sq M.predicted among non-blacks MDRD (S/P/Bld) [Vol rate/Area] 12 mL/min/{1.73_m2} Low >60 [facility] Comment on above: Result Comment: mL/m in/1.73m2 CKD-EPI Creatinine Equation (2020) Performed By: #### L 500.2500 ####[facility] [address] [place], [address] Glucose [Mass/Vol] 233 mg/dL High 70-99 [facility] Comment on above: Performed By: #### L 500.2500 ####[facility] [address] [place], [address] Potassium [Moles/Vol] 4.2 mmol/L Normal 3.3-5.1 [facility] Comment on above: Performed By: #### L 500.2500 ####[facility] [address] [place], [address] Sodium [Moles/Vol] 139 mmol/L Normal 133-145 [facility] Comment on above: Performed By: #### L 500.2500 ####[facility] [address] [place], [address] Urea nitrogen [Mass/Vol] 103 mg/dL Invalid Interpretation Code 4-19 [facility] Comment on above: Result Comment: Crit ical Result(s) Called at: by: 04/06/2025-09:27 Neal to Andressa Khanna.??Results read back by same. Performed By: #### L 500.2500 ####[facility] [address] [place], [address] Bedside Glucoseon 04-06-2025 FINGERSTICK GLU 269 mg/dL High 74-106 [facility] Comment on above: Result Comment: ADITI GEMENT OF PATIENT CARE PER NURSING PROTOCOL Performed By: #### L 501.080 ####[facility] [address] [place], [address] FINGERSTICK GLU 225 mg/dL High 74-106 [facility] Comment on above: Result Comment: ADITI GEMENT OF PATIENT CARE PER NURSING PROTOCOL Performed By: #### L 501.080 ####[facility] [address] [place], [address] FINGERSTICK GLU 281 mg/dL High 74-106 [facility] Comment on above: Result Comment: ADITI ESCOBEDO OF PATIENT CARE PER NURSING PROTOCOL Performed By: #### L 501.080 ####[facility] [address] [place], [address] CBC W/Diff, Automatedon 06-0 6-5 Absolute Lymph 1.34 X10 3/uL Normal 0.83-4.51 [facility] Comment on above: Performed By: #### L 100.0100 ####[facility] [address] [place], [address] Absolute Neut 12.3 X10 3/uL High 2.0-7.7 [facility] Comment on above: Performed By: #### L 100.0100 ####[facility] [address] [place], [address] Basophils/100 WBC (Bld) 0.1 % Normal 0-1 [facility] Comment on above: Performed By: #### L 100.0100 ####[facility] [address] [place], [address] Eosinophils/100 WBC (Bld) 0.0 % Normal 0-5 [facility] Comment on above: Performed By: #### L 100.0100 ####[facility] [address] [place], [address] Erythrocyte distribution width (RBC) [Ratio] 13.8 % Normal 11.6-14.6 [facility] Comment on above: Performed By: #### L 100.0100 ####[facility] [address] [place], [address] Hematocrit (Bld) [Volume fraction] 23.6 % Low 40-54 [facility] Comment on above: Performed By: #### L 100.0100 ####[facility] [address] [place], [address] Hemoglobin (Bld) [Mass/Vol] 7.9 g/dL Low 13.0-16.5 [facility] Comment on above: Performed By: #### L 100.0100 ####[facility] [address] [place], [address] IG% 0.500 Normal 0.0-0.9 [facility] Comment on above: Result Comment: IG% - Immature Granulocytes (promyelocytes, myelocytes andmetamyelocytes) > 1% indicates that a LEFT SHIFT is Present. Performed By: #### L 100.0100 ####[facility] [address] [place], [address] Lymphocytes/100 WBC (Bld) 9.1 % Low 19-41 [facility] Comment on above: Performed By: #### L 100.0100 ####[facility] [address] [place], [address] MCH (RBC) [Entitic mass] 30.7 pg Normal 27.0-32.0 [facility] Comment on above: Performed By: #### L 100.0100 ####[facility] [address] [place], [address] MCHC (RBC) [Mass/Vol] 33.5 g/dL Normal 32-36 [facility] Comment on above: Performed By: #### L 100.0100 ####[facility] [address] [place], [address] MCV (RBC) [Entitic vol] 91.8 fL Normal 80-94 [facility] Comment on above: Performed By: #### L 100.0100 ####[facility] [address] [place], [address] Monocytes/100 WBC (Bld) 7.0 % Normal 0-10 [facility] Comment on above: Performed By: #### L 100.0100 ####[facility] [address] [place], [address] Neutrophils/100 WBC (Bld) 83.3 % High 47-70 [facility] Comment on above: Performed By: #### L 100.0100 ####[facility] [address] [place], [address] Nucleated RBC (Bld) [#/Vol] 0 10*3/uL Normal 0-5 [facility] Comment on above: Performed By: #### L 100.0100 ####[facility] [address] [place], [address] Platelet mean volume (Bld) [Entitic vol] 11.9 fL Normal 6.2-12.0 [facility] Comment on above: Performed By: #### L 100.0100 ####[facility] [address] [place], [address] Platelets (Bld) [#/Vol] 222 10*3/uL Normal 150-450 [facility] Comment on above: Performed By: #### L 100.0100 ####[facility] [address] [place], [address] RBC (Bld) [#/Vol] 2.57 10*6/uL Low 4.6-6.2 [facility] Comment on above: Performed By: #### L 100.0100 ####[facility] [address] [place], [address] RDW SD 46.2 fl High 35.1-43.9 [facility] Comment on above: Performed By: #### L 100.0100 ####[facility] [address] [place], [address] WBC (Bld) [#/Vol] 14.8 10*3/uL High 4.4-11.0 [facility] Comment on above: Performed By: #### L 100.0100 ####[facility] [address] [place], [place], [address] Magnesiumon 04-06-2025 Magnesium [Mass/Vol] 2.8 mg/dL High 1.5-2.2 [facility] Comment on above: Performed By: #### L 501.5200, L501.2300 ####[facility] [address] [place], [address] Magnesium measurement (mass/ volume)Ordered By: Barbie Martin on 04-06-2025 Magnesium (Unsp spec) [Mass/Vol] 2.8 mg/dL High 1.5-2.2 [facility] Phosphoruson 04-06-2025 Phosphate [Mass/Vol] 7.1 mg/dL High 2.7-4.5 [facility] Comment on above: Performed By: #### L 501.5200, L501.2300 ####[facility] [address] [place], [place], [address] Serum classic neutrophil cyt oplasmic antibody assay (units/volume)Ordered By: Denisha Thompson on 04-06-2025 Neutrophil cytoplasmic Ab.classic Qn (S) <1:20 titer Neg:<1:20 [facility] Serum glomerular basement me mbrane antibody assay (units/volume)Ordered By: Denisha Thompson on 04-06-2025 Glomerular basement membrane Ab Qn (S) < 0.2 units 0.0-0.9 [facility] Comment on above: Performed at: [address] [id number] Director: Mignon Taylor MD, Phone: [phone] Serum perinuclear neutrophil cytoplasmic antibody titer by immunofluorescenceOrdered By: Denisha Thompson on 04-06-2025 Neutrophil cytoplasmic Ab.perinuclear IF (S) [Titer] <1:20 titer Neg:<1:20 [facility] Comment on above: The presence of posi tive fluorescence exhibiting P-ANCA orC-ANCA patterns alone is not specific for the diagnosis ofWegener's Granulomatosis (WG) or microscopic polyangiitis.Decisions about treatment should not be based solely onANCA IFA results. The [employer] Consensusrecommends follow up testing of positive sera with both NH-3 and MPO-ANCA enzyme immunoassays. As many as 5% serumsamples are positive only by EIA. Ref. AM J Clin Rcchdz1532;111:507-513. 12 Lead EKGon 04-05-2025 12 Lead EKG Normal [facility] Basic Metabolic Profile (BMP )on 04-05-2025 BUN/CRE 20.8 RATIO High 10-20 [facility] Comment on above: Performed By: #### L 500.2500 ####[facility] [address] [place] [address] Calcium [Mass/Vol] 8.9 mg/dL Normal 7.6-11.0 [facility] Comment on above: Performed By: #### L 500.2500 ####[facility] [address] [place] [id number] Chloride [Moles/Vol] 102 mmol/L Normal 98-108 [facility] Comment on above: Performed By: #### L 500.2500 ####[facility] [address] [facility] [address] CO2 [Moles/Vol] 15.6 mmol/L Low 21.0-32.0 [facility] Comment on above: Performed By: #### L 500.2500 ####[facility] [address] [place], [address] Creatinine [Mass/Vol] 4.77 mg/dL High 0.70-1.20 [facility] Comment on above: Performed By: #### L 500.2500 ####[facility] [address] [place] [id number] ECRCL 10.67 ml/min Low 50-250 [facility] Comment on above: Performed By: #### L 500.2500 ####[facility] [address] [place], [address] GAP 19 High 5-15 [facility] Comment on above: Performed By: #### L 500.2500 ####[facility] [address] [place], [address] GFR/1.73 sq M.predicted among non-blacks MDRD (S/P/Bld) [Vol rate/Area] 12 mL/min/{1.73_m2} Low >60 [facility] Comment on above: Result Comment: mL/m in/1.73m2 CKD-EPI Creatinine Equation (2020) Performed By: #### L 500.2500 ####[facility] [address] [place], [address] Glucose [Mass/Vol] 205 mg/dL High 70-99 [facility] Comment on above: Performed By: #### L 500.2500 ####[facility] [address] [place], [address] Potassium [Moles/Vol] 5.7 mmol/L High 3.3-5.1 [facility] Comment on above: Result Comment: Hemo lysis present, Results??could be affected.?? Performed By: #### L 500.2500 ####[facility] [address] [place], [address] Sodium [Moles/Vol] 137 mmol/L Normal 133-145 [facility] Comment on above: Performed By: #### L 500.2500 ####[facility] [address] [place], [address] Urea nitrogen [Mass/Vol] 99 mg/dL High 4-19 [facility] Comment on above: Performed By: #### L 500.2500 ####[facility] [address] [place], [address] BUN/CRE 20.5 RATIO High 10-20 [facility] Comment on above: Performed By: #### L 500.2500 ####[facility] [address] [place], [address] Calcium [Mass/Vol] 8.1 mg/dL Normal 7.6-11.0 [facility] Comment on above: Performed By: #### L 500.2500 ####[facility] [address] [place], [address] Chloride [Moles/Vol] 102 mmol/L Normal 98-108 [facility] Comment on above: Performed By: #### L 500.2500 ####[facility] [address] [place], [address] CO2 [Moles/Vol] 15.8 mmol/L Low 21.0-32.0 [facility] Comment on above: Performed By: #### L 500.2500 ####[facility] [address] [place], [address] Creatinine [Mass/Vol] 4.68 mg/dL High 0.70-1.20 [facility] Comment on above: Performed By: #### L 500.2500 ####[facility] [address] [place], [address] ECRCL 10.87 ml/min Low 50-250 [facility] Comment on above: Performed By: #### L 500.2500 ####[facility] [address] [place], [address] GAP 18 High 5-15 [facility] Comment on above: Performed By: #### L 500.2500 ####[facility] [address] [place], [address] GFR/1.73 sq M.predicted among non-blacks MDRD (S/P/Bld) [Vol rate/Area] 12 mL/min/{1.73_m2} Low >60 [facility] Comment on above: Result Comment: mL/m in/1.73m2 CKD-EPI Creatinine Equation (2020) Performed By: #### L 500.2500 ####[facility] [address] [place], [address] Glucose [Mass/Vol] 223 mg/dL High 70-99 [facility] Comment on above: Performed By: #### L 500.2500 ####[facility] [address] [place], [address] Potassium [Moles/Vol] 6.3 mmol/L Invalid Interpretation Code 3.3-5.1 [facility] Comment on above: Result Comment: Crit ical Result(s) Called to: STANTON PARRA (U) by:RONEN??Results read back by same. Performed By: #### L 500.2500 ####[facility] [address] [place], [address] Sodium [Moles/Vol] 136 mmol/L Normal 133-145 [facility] Comment on above: Performed By: #### L 500.2500 ####[facility] [address] [place], [address] Urea nitrogen [Mass/Vol] 96 mg/dL High 4-19 [facility] Comment on above: Performed By: #### L 500.2500 ####[facility] [address] [place], [address] Bedside Glucoseon 04-05-2025 FINGERSTICK GLU 282 mg/dL High 74-106 [facility] Comment on above: Result Comment: ADITI GEMENT OF PATIENT CARE PER NURSING PROTOCOL Performed By: #### L 501.080 ####[facility] [address] [place], [address] FINGERSTICK GLU 165 mg/dL High 74-106 [facility] Comment on above: Result Comment: ADITI GEMENT OF PATIENT CARE PER NURSING PROTOCOL Performed By: #### L 501.080 ####[facility] [address] [place], [address] FINGERSTICK GLU 239 mg/dL High 74-106 [facility] Comment on above: Result Comment: ADITI GEMENT OF PATIENT CARE PER NURSING PROTOCOL Performed By: #### L 501.080 ####[facility] [address] [place], [address] FINGERSTICK GLU 226 mg/dL High 74-106 [facility] Comment on above: Result Comment: ADITI GEMENT OF PATIENT CARE PER NURSING PROTOCOL Performed By: #### L 501.080 ####[facility] [address] [place], [address] FINGERSTICK GLU 263 mg/dL High 74-106 [facility] Comment on above: Result Comment: ADITI GEMENT OF PATIENT CARE PER NURSING PROTOCOL Performed By: #### L 501.080 ####[facility] [address] [place], [address] FINGERSTICK GLU 253 mg/dL High -106 [facility] Comment on above: Result Comment: ADITI GEMENT OF PATIENT CARE PER NURSING PROTOCOL Performed By: #### L 501.080 ####[facility] [address] [place], [address] Bilirubin Test strip Ql (U)O rdered By: Denisha Thompson on 04-05-2025 Bilirubin Ql (U) 1 mg/dL High Negative [facility] Comment on above: COLOR OF URINE MAY A FFECT DIPSTICK RESULTS. Blood manual differential co mment interpretation (narrative result)Ordered By: Grace Arnold on 04-05-2025 Manual differential comment Mumtaz (Bld) [Interp] SCANNED [facility] CBC W/Diff, Automatedon SMEAR COMMENT SCANNED Normal [facility] Comment on above: Performed By: #### L 100.0100 ####[facility] [address] [place], [address] CXR for Line Placementon CXR for Line Placement Normal [facility] Consultation - Surgicalon Consultation - Surgical Normal [facility] Ketones Test strip Ql (U)Ord ered By: Denisha Thompson on 04-05-2025 Ketones Ql (U) Negative Negative [facility] L499.0042on 04-05-2025 Trop T High Sen 2263 ng/L Invalid Interpretation Code <=22 [facility] Comment on above: Result Comment: Crit ical Result(s) Called at: 0040 by: BJ??Results read back by same. Performed By: #### L 499.0042 ####[facility] [address] [place], [place], [address] L499.0043on 04-05-2025 Trop T High Sen 2425 ng/L Invalid Interpretation Code <=22 [facility] Comment on above: Result Comment: Crit ical Result(s) Called at: 0336 by:??DASIA ALICIA Results read back by same. Performed By: #### L 499.0043 ####[facility] [address] [place], [place], [address] Microscopic analysis of urin e for red blood cells (RBC)Ordered By: Denisha Thompson on 04-05-2025 Microscopic analysis of urine for red blood cells (RBC) > 100 SEEN /hpf 0-5 [facility] Mucus LM Ql (Urine sed)Order ed By: Denisha Thompson on 04-05-2025 Mucus Ql (Urine sed) 0 SEEN /hpf [facility] Nitrite Test strip Ql (U)Ord ered By: Denisha Thompson on 04-05-2025 Nitrite Ql (U) Negative Negative [facility] Operative Reporton Operative Report Normal [facility] Protein Test strip Ql (U)Ord ered By: Denisha Thompson on 04-05-2025 Protein Ql (U) 100 mg/dl High Negative [facility] Squamous epithelial cells de tection in urine sediment by light microscopyOrdered By: Denisha Thompson on 04-05-2025 Epithelial cells.squamous LM Ql (Urine sed) 0 SEEN /hpf 0-5 [facility] Troponin T.cardiac [Mass/vol ume] in Serum or Plasma by High sensitivity methodOrdered By: Breezy Campbell on 04-05-2025 Troponin T.cardiac High sensitivity method [Mass/Vol] 2425 ng/L High <22 [facility] Comment on above: Critical Result(s) C alled at: 0336 by: DASIA MOYA TO ANA ALICIA Results read back by same. Urinalysis, Completeon 04-05 WBC 5-10 SEEN Normal 0-5 [facility] Comment on above: Order Comment: HATTIE TER SPECIMEN Performed By: #### L 400.0001 ####[facility] [address] [place], [address] RBC > 100 SEEN Normal 0-5 [facility] Comment on above: Order Comment: HATTIE TER SPECIMEN Performed By: #### L 400.0001 ####[facility] [address] [place], [address] BACTERIA 0 SEEN Normal None Seen [facility] Comment on above: Order Comment: HATTIE TER SPECIMEN Performed By: #### L 400.0001 ####[facility] [address] [place], [address] EPI,SQUAMOUS 0 SEEN Normal 0-5 [facility] Comment on above: Order Comment: HATTIE TER SPECIMEN Performed By: #### L 400.0001 ####[facility] [address] [place], [address] Mucus Ql (Urine sed) 0 SEEN Normal [facility] Comment on above: Order Comment: HATTIE TER SPECIMEN Performed By: #### L 400.0001 ####[facility] [address] [place], [address] Urine clarityOrdered By: Zelalem Thompson on 04-05-2025 Clarity (U) Sl. Cloudy Clear [facility] Urine color determinationOrd ered By: Denisha Thompson on 04-05-2025 Color (U) Yellow Yellow [facility] Urine glucose detectionOrder ed By: Denisha Thompson on 04-05-2025 Glucose Ql (U) Normal mg/dl Normal [facility] Urine leukocyte esterase det ection by dipstickOrdered By: Denisha Thompson on 04-05-2025 Leukocyte esterase Test strip Ql (U) 500 /ul High Negative [facility] Urine pHOrdered By: Almita Thompson on 04-05-2025 pH (U) 5.0 [pH] 5.0 - 8.0 [facility] Urine sediment bacteria coun t by microscopy (number/high power field)Ordered By: Denisha Thompson on 04-05-2025 Bacteria LM.HPF (Urine sed) [#/Area] 0 /[HPF] None Seen [facility] Urine specific gravity measu rementOrdered By: Denisha Thompson on 04-05-2025 Specific gravity (U) [Rel density] 1.020 1.002-1.030 [facility] Urine urobilinogen measureme ntOrdered By: Denisha Thompson on 04-05-2025 Urobilinogen Ql (U) Normal mg/dl Normal [facility] White blood cell countOrdere d By: Denisha Thompson on 04-05-2025 White blood cell count 5-10 SEEN /hpf 0-5 [facility] 12 Lead EKGon 04-04-2025 12 Lead EKG Normal [facility] 12 Lead EKG Normal [facility] 12 Lead EKG Normal [facility] Basic Metabolic Profile (BMP )on 04-04-2025 BUN Normal 4-19 [facility] Comment on above: Result Comment: CANC EL PER DEVEROAUX Performed By: #### L 500.2500 ####[facility] [address] [place], [place], [address] BUN/CRE Normal 10-20 [facility] Comment on above: Result Comment: CANC EL PER [place] Performed By: #### L 500.2500 ####[facility] [address] [place], [address] Calcium Normal 7.6-11.0 [facility] Comment on above: Result Comment: CANC EL PER [place] Performed By: #### L 500.2500 ####[facility] [address] [place], [address] CL Normal 98-108 [facility] Comment on above: Result Comment: CANC EL PER [place] Performed By: #### L 500.2500 ####[facility] [address] [place], [address] CO2 Normal 21.0-32.0 [facility] Comment on above: Result Comment: CANC EL PER [place] Performed By: #### L 500.2500 ####[facility] [address] [place], [address] CREAT,SERUM Normal 0.70-1.20 [facility] Comment on above: Result Comment: CANC EL PER [place] Performed By: #### L 500.2500 ####[facility] [address] [place], [address] eGFR Normal >60 [facility] Comment on above: Result Comment: CANC EL PER [place] Performed By: #### L 500.2500 ####[facility] [address] [place], [address] GAP Normal 5-15 [facility] Comment on above: Result Comment: CANC EL PER [place] Performed By: #### L 500.2500 ####[facility] [address] [place], [address] GLU Normal 70-99 [facility] Comment on above: Result Comment: CANC EL PER [place] Performed By: #### L 500.2500 ####[facility] [address] [place], [address] Potassium Normal 3.3-5.1 [facility] Comment on above: Result Comment: CANC EL PER [place] Performed By: #### L 500.2500 ####[facility] [address] [place], [address] Basic Metabolic Profile (BMP) Normal 133-145 [facility] Comment on above: Result Comment: CANC EL PER [place] Performed By: #### L 500.2500 ####[facility] [address] [place], [address] BUN/CRE 20.5 RATIO High 10-20 [facility] Comment on above: Performed By: #### L 500.2500 ####[facility] [address] [place], [address] Calcium [Mass/Vol] 8.6 mg/dL Normal 7.6-11.0 [facility] Comment on above: Performed By: #### L 500.2500 ####[facility] [address] [place], [address] Chloride [Moles/Vol] 101 mmol/L Normal 98-108 [facility] Comment on above: Performed By: #### L 500.2500 ####[facility] [address] [place], [address] CO2 [Moles/Vol] 17.2 mmol/L Low 21.0-32.0 [facility] Comment on above: Performed By: #### L 500.2500 ####[facility] [address] [place], [address] Creatinine [Mass/Vol] 3.74 mg/dL High 0.70-1.20 [facility] Comment on above: Performed By: #### L 500.2500 ####[facility] [address] [place], [address] ECRCL 13.61 ml/min Low 50-250 [facility] Comment on above: Performed By: #### L 500.2500 ####[facility] [address] [place], [address] GAP 17 High 5-15 [facility] Comment on above: Performed By: #### L 500.2500 ####[facility] [address] [place], [address] GFR/1.73 sq M.predicted among non-blacks MDRD (S/P/Bld) [Vol rate/Area] 16 mL/min/{1.73_m2} Low >60 [facility] Comment on above: Result Comment: mL/m in/1.73m2 CKD-EPI Creatinine Equation (2020) Performed By: #### L 500.2500 ####[facility] [address] [place], [address] Glucose [Mass/Vol] 226 mg/dL High 70-99 [facility] Comment on above: Performed By: #### L 500.2500 ####[facility] [address] [place], [address] Potassium [Moles/Vol] 5.4 mmol/L High 3.3-5.1 [facility] Comment on above: Performed By: #### L 500.2500 ####[facility] [address] [place], [address] Sodium [Moles/Vol] 134 mmol/L Normal 133-145 [facility] Comment on above: Performed By: #### L 500.2500 ####[facility] [address] [place], [address] Urea nitrogen [Mass/Vol] 77 mg/dL High 4-19 [facility] Comment on above: Performed By: #### L 500.2500 ####[facility] [address] [place], [address] BUN/CRE 21.0 RATIO High 10-20 [facility] Comment on above: Performed By: #### L 500.2500 ####[facility] [address] [place], [address] Calcium [Mass/Vol] 8.7 mg/dL Normal 7.6-11.0 [facility] Comment on above: Performed By: #### L 500.2500 ####[facility] [address] [place], [address] Chloride [Moles/Vol] 104 mmol/L Normal 98-108 [facility] Comment on above: Performed By: #### L 500.2500 ####[facility] [address] [place], [address] CO2 [Moles/Vol] 17.5 mmol/L Low 21.0-32.0 [facility] Comment on above: Performed By: #### L 500.2500 ####[facility] [address] [place], [address] Creatinine [Mass/Vol] 3.34 mg/dL High 0.70-1.20 [facility] Comment on above: Performed By: #### L 500.2500 ####[facility] [address] [place], [address] ECRCL 15.24 ml/min Low 50-250 [facility] Comment on above: Performed By: #### L 500.2500 ####[facility] [address] [place], [address] GAP 15 Normal 5-15 [facility] Comment on above: Performed By: #### L 500.2500 ####[facility] [address] [place], [address] GFR/1.73 sq M.predicted among non-blacks MDRD (S/P/Bld) [Vol rate/Area] 18 mL/min/{1.73_m2} Low >60 [facility] Comment on above: Result Comment: mL/m in/1.73m2 CKD-EPI Creatinine Equation (2021) Performed By: #### L 500.2500 ####[facility] [address] [place], [address] Glucose [Mass/Vol] 208 mg/dL High 70-99 [facility] Comment on above: Performed By: #### L 500.2500 ####[facility] [address] [place], [address] Potassium [Moles/Vol] 5.0 mmol/L Normal 3.3-5.1 [facility] Comment on above: Performed By: #### L 500.2500 ####[facility] [address] [place], [address] Sodium [Moles/Vol] 137 mmol/L Normal 133-145 [facility] Comment on above: Performed By: #### L 500.2500 ####[facility] [address] [place], [address] Urea nitrogen [Mass/Vol] 70 mg/dL High 4-19 [facility] Comment on above: Performed By: #### L 500.2500 ####[facility] [address] [place], [address] BUN/CRE 21.1 RATIO High 10-20 [facility] Comment on above: Performed By: #### L 500.2500 ####[facility] [address] [place], [address] Calcium [Mass/Vol] 8.6 mg/dL Normal 7.6-11.0 [facility] Comment on above: Performed By: #### L 500.2500 ####[facility] [address] [place], [address] Chloride [Moles/Vol] 103 mmol/L Normal 98-108 [facility] Comment on above: Performed By: #### L 500.2500 ####[facility] [address] [place], [address] CO2 [Moles/Vol] 17.8 mmol/L Low 21.0-32.0 [facility] Comment on above: Performed By: #### L 500.2500 ####[facility] [address] [place], [address] Creatinine [Mass/Vol] 3.26 mg/dL High 0.70-1.20 [facility] Comment on above: Performed By: #### L 500.2500 ####[facility] [address] [place], [address] ECRCL 15.61 ml/min Low 50-250 [facility] Comment on above: Performed By: #### L 500.2500 ####[facility] [address] [place], [address] GAP 15 Normal 5-15 [facility] Comment on above: Performed By: #### L 500.2500 ####[facility] [address] [place], [address] GFR/1.73 sq M.predicted among non-blacks MDRD (S/P/Bld) [Vol rate/Area] 18 mL/min/{1.73_m2} Low >60 [facility] Comment on above: Result Comment: mL/m in/1.73m2 CKD-EPI Creatinine Equation (2020) Performed By: #### L 500.2500 ####[facility] [address] [place], [address] Glucose [Mass/Vol] 203 mg/dL High 70-99 [facility] Comment on above: Performed By: #### L 500.2500 ####[facility] [address] [place], [address] Potassium [Moles/Vol] 4.6 mmol/L Normal 3.3-5.1 [facility] Comment on above: Performed By: #### L 500.2500 ####[facility] [address] [place], [address] Sodium [Moles/Vol] 136 mmol/L Normal 133-145 [facility] Comment on above: Performed By: #### L 500.2500 ####[facility] [address] [place], [address] Urea nitrogen [Mass/Vol] 69 mg/dL High 4-19 [facility] Comment on above: Performed By: #### L 500.2500 ####[facility] [address] [place], [address] Bedside Glucoseon 04-04-2025 FINGERSTICK GLU 355 mg/dL High 74-106 [facility] Comment on above: Result Comment: ADITI GEMENT OF PATIENT CARE PER NURSING PROTOCOL Performed By: #### L 501.080 ####[facility] [address] [place], [address] FINGERSTICK GLU 307 mg/dL High 74-106 [facility] Comment on above: Result Comment: ADITI GEMENT OF PATIENT CARE PER NURSING PROTOCOL Performed By: #### L 501.080 ####[facility] [address] [place], [address] FINGERSTICK GLU 209 mg/dL High 74-106 [facility] Comment on above: Result Comment: ADITI GEMENT OF PATIENT CARE PER NURSING PROTOCOL Performed By: #### L 501.080 ####[facility] [address] [place], [address] FINGERSTICK GLU 164 mg/dL High 74-106 [facility] Comment on above: Result Comment: ADITI GEMENT OF PATIENT CARE PER NURSING PROTOCOL Performed By: #### L 501.080 ####[facility] [address] [place], [address] FINGERSTICK GLU 183 mg/dL High 74-106 [facility] Comment on above: Result Comment: ADITI GEMENT OF PATIENT CARE PER NURSING PROTOCOL Performed By: #### L 501.080 ####[facility] [address] [place], [address] FINGERSTICK GLU 178 mg/dL High 74-106 [facility] Comment on above: Result Comment: ADITI GEMENT OF PATIENT CARE PER NURSING PROTOCOL Performed By: #### L 501.080 ####[facility] [address] [place], [address] FINGERSTICK GLU 229 mg/dL High 74-106 [facility] Comment on above: Result Comment: ADITI GEMENT OF PATIENT CARE PER NURSING PROTOCOL Performed By: #### L 501.080 ####[facility] [address] [place], [address] FINGERSTICK GLU 174 mg/dL High 74-106 [facility] Comment on above: Result Comment: ADITI GEMENT OF PATIENT CARE PER NURSING PROTOCOL Performed By: #### L 501.080 ####[facility] [address] [place], [address] FINGERSTICK GLU 366 mg/dL High 74-106 [facility] Comment on above: Result Comment: ADITI GEMENT OF PATIENT CARE PER NURSING PROTOCOL Performed By: #### L 501.080 ####[facility] [address] [place], [address] FINGERSTICK GLU 250 mg/dL High 74-106 [facility] Comment on above: Result Comment: ADITI GEMENT OF PATIENT CARE PER NURSING PROTOCOL Performed By: #### L 501.080 ####[facility] [address] [place], [address] FINGERSTICK GLU 284 mg/dL High 74-106 [facility] Comment on above: Result Comment: ADITI GEMENT OF PATIENT CARE PER NURSING PROTOCOL Performed By: #### L 501.080 ####[facility] [address] [place], [address] FINGERSTICK GLU 261 mg/dL High 74[address] [facility] Comment on above: Result Comment: ADITI GEMENT OF PATIENT CARE PER NURSING PROTOCOL Performed By: #### L 501.080 ####[facility] [address] [place], [address] FINGERSTICK GLU 317 mg/dL High 74-106 [facility] Comment on above: Result Comment: ADITI GEMENT OF PATIENT CARE PER NURSING PROTOCOL Performed By: #### L 501.080 ####[facility] [address] [place], [address] FINGERSTICK GLU 235 mg/dL High 74-106 [facility] Comment on above: Result Comment: ADITI GEMENT OF PATIENT CARE PER NURSING PROTOCOL Performed By: #### L 501.080 ####[facility] [address] [place], [address] CBC W/Diff, Automatedon 06-0 4-5 Absolute Lymph 1.08 X10 3/uL Normal 0.83-4.51 [facility] Comment on above: Performed By: #### L 100.0100 ####[facility] [address] [place], [address] Absolute Neut 19.9 X10 3/uL High 2.0-7.7 [facility] Comment on above: Performed By: #### L 100.0100 ####[facility] [address] [place], [address] Basophils/100 WBC (Bld) 0.1 % Normal 0-1 [facility] Comment on above: Performed By: #### L 100.0100 ####[facility] [address] [place], [address] Eosinophils/100 WBC (Bld) 0.0 % Normal 0-5 [facility] Comment on above: Performed By: #### L 100.0100 ####[facility] [address] [place], [address] Erythrocyte distribution width (RBC) [Ratio] 13.6 % Normal 11.6-14.6 [facility] Comment on above: Performed By: #### L 100.0100 ####[facility] [address] [place], [address] Hematocrit (Bld) [Volume fraction] 22.8 % Low 40-54 [facility] Comment on above: Performed By: #### L 100.0100 ####[facility] [address] [place], [address] Hemoglobin (Bld) [Mass/Vol] 7.4 g/dL Low 13.0-16.5 [facility] Comment on above: Performed By: #### L 100.0100 ####[facility] [address] [place], [address] IG% 0.600 Normal 0.0-0.9 [facility] Comment on above: Result Comment: IG% - Immature Granulocytes (promyelocytes, myelocytes andmetamyelocytes) > 1% indicates that a LEFT SHIFT is Present. Performed By: #### L 100.0100 ####[facility] [address] [place], [address] Lymphocytes/100 WBC (Bld) 4.9 % Low 19-41 [facility] Comment on above: Performed By: #### L 100.0100 ####[facility] [address] [place], [address] MCH (RBC) [Entitic mass] 30.0 pg Normal 27.0-32.0 [facility] Comment on above: Performed By: #### L 100.0100 ####[facility] [address] [place], [address] MCHC (RBC) [Mass/Vol] 32.5 g/dL Normal 32-36 [facility] Comment on above: Performed By: #### L 100.0100 ####[facility] [address] [place], [address] MCV (RBC) [Entitic vol] 92.3 fL Normal 80-94 [facility] Comment on above: Performed By: #### L 100.0100 ####[facility] [address] [place], [address] Monocytes/100 WBC (Bld) 4.0 % Normal 0-10 [facility] Comment on above: Performed By: #### L 100.0100 ####[facility] [address] [place], [address] Neutrophils/100 WBC (Bld) 90.4 % High 47-70 [facility] Comment on above: Performed By: #### L 100.0100 ####[facility] [address] [place], [address] Nucleated RBC (Bld) [#/Vol] 0 10*3/uL Normal 0-5 [facility] Comment on above: Performed By: #### L 100.0100 ####[facility] [address] [place], [address] Platelet mean volume (Bld) [Entitic vol] 11.4 fL Normal 6.2-12.0 [facility] Comment on above: Performed By: #### L 100.0100 ####[facility] [address] [place], [address] Platelets (Bld) [#/Vol] 230 10*3/uL Normal 150-450 [facility] Comment on above: Performed By: #### L 100.0100 ####[facility] [address] [place], [address] RBC (Bld) [#/Vol] 2.47 10*6/uL Low 4.6-6.2 [facility] Comment on above: Performed By: #### L 100.0100 ####[facility] [address] [place], [address] RDW SD 45.9 fl High 35.1-43.9 [facility] Comment on above: Performed By: #### L 100.0100 ####[facility] [address] [place], [address] WBC (Bld) [#/Vol] 22.0 10*3/uL High 4.4-11.0 [facility] Comment on above: Performed By: #### L 100.0100 ####[facility] [address] [place], [address] Consultation - Nephrologyon 04-04-2025 Consultation - Nephrology Normal [facility] Creatinine, Urineon 04-04-20 25 URINE CREAT 138.00 mg/dL Normal 39.00-259.00 [facility] Comment on above: Performed By: #### L 502.0715, L502.0300 ####[facility] [address] [place], [address] Kidney and Bladderon 025 Kidney and Bladder Normal [facility] L501.4021on 04-04-2025 Trop T High Sen 2204 ng/L Invalid Interpretation Code <=22 [facility] Comment on above: Result Comment: Crit ical Result(s) Called at: 223 by: JEANNIE SHARMA Results read back by same. Performed By: #### L 501.4021 ####[facility] [address] [place], [address] Troponin T.cardiac [Mass/vol ume] in Serum or Plasma by High sensitivity methodOrdered By: Breezy Campbell on 04-04-2025 Troponin T.cardiac High sensitivity method [Mass/Vol] 2204 ng/L High <22 [facility] Comment on above: Delta: 58 on 5-0005Critical Result(s) Called at: 2232 by: JEANNIE SHARMA Results read back by same. Troponin T.cardiac High sensitivity method [Mass/Vol] 2263 ng/L High <22 [facility] Comment on above: Critical Result(s) C alled at: 0040 by: JENNIFER SHARMA Results read back by same. Urea Nitrogen, Urineon 04-04 URINE UREA 406 mg/dL Normal NO RANGE EST. [facility] Comment on above: Performed By: #### L 502.0715, L502.0300 ####[facility] [address] [place], [place], [address] Urine Cultureon 04-04-2025 URC Culture exhibits no growth. Normal [facility] Comment on above: Performed By: #### M 100.2200 ####[facility] [address] [place], [place], [address] Urine creatinine measurement (mass/volume)Ordered By: Grace Arnold on 04-04-2025 Creatinine (U) [Mass/Vol] 138.00 mg/dL 39.00-25 9.00 [facility] 12 Lead EKGon 04-03-2025 12 Lead EKG Normal [facility] Absolute lymphocyte countOrd ered By: John Brandon on 04-03-2025 Lymphocytes Auto (Unsp spec) [#/Vol] 2.12 10*3/uL 0.83-4.51 [facility] Absolute neutrophil countOrd ered By: John Brandon on 04-03-2025 Neutrophils (Bld) [#/Vol] 12.0 10*3/uL High 2.0-7.7 [facility] Activated partial thrombopla stin time (aPTT) in platelet poor plasma by coagulation aOrdered By: Grace Arnold on 04-03-2025 aPTT Coag (PPP) [Time] 212.0 s High 24.1-36.2 [facility] Comment on above: CRITICAL VALUE GRIMM D TO RElizabet VIZZO04/03/25 1243 Ness Huang.RESULTS READ BACK BY SAME. Activated partial thrombopla stin time (aPTT) in platelet poor plasma by coagulation aOrdered By: Dyana Hwang on 04-03-2025 aPTT Coag (PPP) [Time] 37.3 s High 24.1-36.2 [facility] Anion gap in Serum or Plasma Ordered By: John Brandon on 04-03-2025 Anion gap [Moles/Vol] 14 mmol/L 5-15 [facility] Assessment of wrist artery p atency prior to arterial punctureOrdered By: Dyana Hwang on 04-03-2025 Arterial patency Wrist artery --pre arterial puncture Positive [facility] Automated lymphocyte count a s percentage of total leukocytesOrdered By: John Brandon on 04-03-2025 Lymphocytes/100 WBC Auto (Unsp spec) 13.5 % Low 19-41 [facility] BUN/creatinine ratioOrdered By: John Brandon on 04-03-2025 Urea nitrogen/Creatinine [Mass ratio] 22.3 mg/mg High 10-20 [facility] Basic Metabolic Profile (BMP )on 04-03-2025 BUN/CRE 21.7 RATIO High 10-20 [facility] Comment on above: Performed By: #### L 500.2500 ####[facility] [address] [place], [address] Calcium [Mass/Vol] 8.5 mg/dL Normal 7.6-11.0 [facility] Comment on above: Performed By: #### L 500.2500 ####[facility] [address] [place], [address] Chloride [Moles/Vol] 102 mmol/L Normal 98-108 [facility] Comment on above: Performed By: #### L 500.2500 ####[facility] [address] [place], [address] CO2 [Moles/Vol] 17.3 mmol/L Low 21.0-32.0 [facility] Comment on above: Performed By: #### L 500.2500 ####[facility] [address] [place], [address] Creatinine [Mass/Vol] 3.02 mg/dL High 0.70-1.20 [facility] Comment on above: Performed By: #### L 500.2500 ####[facility] [address] [place], [address] ECRCL 16.69 ml/min Low 50-250 [facility] Comment on above: Performed By: #### L 500.2500 ####[facility] [address] [place], [address] GAP 16 High 5-15 [facility] Comment on above: Performed By: #### L 500.2500 ####[facility] [address] [place], [address] GFR/1.73 sq M.predicted among non-blacks MDRD (S/P/Bld) [Vol rate/Area] 20 mL/min/{1.73_m2} Low >60 [facility] Comment on above: Result Comment: mL/m in/1.73m2 CKD-EPI Creatinine Equation (2020) Performed By: #### L 500.2500 ####[facility] [address] [place], [address] Glucose [Mass/Vol] 275 mg/dL High 70-99 [facility] Comment on above: Performed By: #### L 500.2500 ####[facility] [address] [place], [address] Potassium [Moles/Vol] 4.5 mmol/L Normal 3.3-5.1 [facility] Comment on above: Performed By: #### L 500.2500 ####[facility] [address] [place], [address] Sodium [Moles/Vol] 136 mmol/L Normal 133-145 [facility] Comment on above: Performed By: #### L 500.2500 ####[facility] [address] [place], [address] Urea nitrogen [Mass/Vol] 66 mg/dL High 4-19 [facility] Comment on above: Performed By: #### L 500.2500 ####[facility] [address] [place], [address] BUN/CRE 22.9 RATIO High 10-20 [facility] Comment on above: Performed By: #### L 500.2500 ####[facility] [address] [place], [address] Calcium [Mass/Vol] 9.0 mg/dL Normal 7.6-11.0 [facility] Comment on above: Performed By: #### L 500.2500 ####[facility] [address] [place], [address] Chloride [Moles/Vol] 100 mmol/L Normal 98-108 [facility] Comment on above: Performed By: #### L 500.2500 ####[facility] [address] [place], [address] CO2 [Moles/Vol] 16.9 mmol/L Low 21.0-32.0 [facility] Comment on above: Performed By: #### L 500.2500 ####[facility] [address] [place], [address] Creatinine [Mass/Vol] 2.73 mg/dL High 0.70-1.20 [facility] Comment on above: Performed By: #### L 500.2500 ####[facility] [address] [place], [address] ECRCL 18.46 ml/min Low 50-250 [facility] Comment on above: Performed By: #### L 500.2500 ####[facility] [address] [place], [address] GAP 18 High 5-15 [facility] Comment on above: Performed By: #### L 500.2500 ####[facility] [address] [place], [address] GFR/1.73 sq M.predicted among non-blacks MDRD (S/P/Bld) [Vol rate/Area] 23 mL/min/{1.73_m2} Low >60 [facility] Comment on above: Result Comment: mL/m in/1.73m2 CKD-EPI Creatinine Equation (2020) Performed By: #### L 500.2500 ####[facility] [address] [place], [address] Glucose [Mass/Vol] 407 mg/dL High 70-99 [facility] Comment on above: Performed By: #### L 500.2500 ####[facility] [address] [place], [address] Potassium [Moles/Vol] 4.3 mmol/L Normal 3.3-5.1 [facility] Comment on above: Performed By: #### L 500.2500 ####[facility] [address] [place], [address] Sodium [Moles/Vol] 135 mmol/L Normal 133-145 [facility] Comment on above: Performed By: #### L 500.2500 ####[facility] [address] [place], [address] Urea nitrogen [Mass/Vol] 62 mg/dL High 4-19 [facility] Comment on above: Performed By: #### L 500.2500 ####[facility] [address] [place], [address] BUN/CRE 21.7 RATIO High 10-20 [facility] Comment on above: Performed By: #### L 500.2500 ####[facility] [address] [place], [address] Calcium [Mass/Vol] 8.6 mg/dL Normal 7.6-11.0 [facility] Comment on above: Performed By: #### L 500.2500 ####[facility] [address] [place], [address] Chloride [Moles/Vol] 98 mmol/L Normal 98-108 [facility] Comment on above: Performed By: #### L 500.2500 ####[facility] [address] [place], [address] CO2 [Moles/Vol] 13.6 mmol/L Low 21.0-32.0 [facility] Comment on above: Performed By: #### L 500.2500 ####[facility] [address] [place], [address] Creatinine [Mass/Vol] 2.67 mg/dL High 0.70-1.20 [facility] Comment on above: Performed By: #### L 500.2500 ####[facility] [address] [place], [address] ECRCL 18.87 ml/min Low 50-250 [facility] Comment on above: Performed By: #### L 500.2500 ####[facility] [address] [place], [address] GAP 21 High 5-15 [facility] Comment on above: Performed By: #### L 500.2500 ####[facility] [address] [place], [address] GFR/1.73 sq M.predicted among non-blacks MDRD (S/P/Bld) [Vol rate/Area] 23 mL/min/{1.73_m2} Low >60 [facility] Comment on above: Result Comment: mL/m in/1.73m2 CKD-EPI Creatinine Equation (2020) Performed By: #### L 500.2500 ####[facility] [address] [place], [address] Glucose [Mass/Vol] 638 mg/dL Invalid Interpretation Code 70-99 [facility] Comment on above: Result Comment: Crit ical Result(s) Called STEPHANY at: 1553 by:COLETTE??Results read back by same. Performed By: #### L 500.2500 ####[facility] [address] [place], [address] Potassium [Moles/Vol] 4.4 mmol/L Normal 3.3-5.1 [facility] Comment on above: Performed By: #### L 500.2500 ####[facility] [address] [place], [address] Sodium [Moles/Vol] 133 mmol/L Normal 133-145 [facility] Comment on above: Performed By: #### L 500.2500 ####[facility] [address] [place], [address] Urea nitrogen [Mass/Vol] 58 mg/dL High 4-19 [facility] Comment on above: Performed By: #### L 500.2500 ####[facility] [address] [place], [address] BUN/CRE 22.3 RATIO High 10-20 [facility] Comment on above: Performed By: #### L 100.0100, L500.2500, L300.8000 ####[facility] [address] [place], [address] Calcium [Mass/Vol] 8.8 mg/dL Normal 7.6-11.0 [facility] Comment on above: Performed By: #### L 100.0100, L500.2500, L300.8000 ####[facility] [address] [place], [address] Chloride [Moles/Vol] 104 mmol/L Normal 98-108 [facility] Comment on above: Performed By: #### L 100.0100, L500.2500, L300.8000 ####[facility] [address] [place], [address] CO2 [Moles/Vol] 20.8 mmol/L Low 21.0-32.0 [facility] Comment on above: Performed By: #### L 100.0100, L500.2500, L300.8000 ####[facility] [address] [place], [address] Creatinine [Mass/Vol] 1.88 mg/dL High 0.70-1.20 [facility] Comment on above: Performed By: #### L 100.0100, L500.2500, L300.8000 ####[facility] [address] [place], [address] ECRCL 28.20 ml/min Low 50-250 [facility] Comment on above: Performed By: #### L 100.0100, L500.2500, L300.8000 ####[facility] [address] [place], [address] GAP 14 Normal 5-15 [facility] Comment on above: Performed By: #### L 100.0100, L500.2500, L300.8000 ####[facility] [address] [place], [address] GFR/1.73 sq M.predicted among non-blacks MDRD (S/P/Bld) [Vol rate/Area] 35 mL/min/{1.73_m2} Low >60 [facility] Comment on above: Result Comment: mL/m in/1.73m2 CKD-EPI Creatinine Equation (2020) Performed By: #### L 100.0100, L500.2500, L300.8000 ####[facility] [address] [place], [address] Glucose [Mass/Vol] 255 mg/dL High 70-99 [facility] Comment on above: Performed By: #### L 100.0100, L500.2500, L300.8000 ####[facility] [address] [place], [address] Potassium [Moles/Vol] 4.4 mmol/L Normal 3.3-5.1 [facility] Comment on above: Performed By: #### L 100.0100, L500.2500, L300.8000 ####[facility] [address] [place], [address] Sodium [Moles/Vol] 139 mmol/L Normal 133-145 [facility] Comment on above: Performed By: #### L 100.0100, L500.2500, L300.8000 ####[facility] [address] [place], [address] Urea nitrogen [Mass/Vol] 42 mg/dL High 4-19 [facility] Comment on above: Performed By: #### L 100.0100, L500.2500, L300.8000 ####[facility] [address] [place], [address] Basophil percentageOrdered B y: John Aleksandr on 04-03-2025 Basophils/100 WBC (Bld) 0.6 % 0-1 [facility] Bedside Glucoseon 04-03-2025 FINGERSTICK GLU 363 mg/dL High 74-106 [facility] Comment on above: Result Comment: ADITI CHOPRAENT OF PATIENT CARE PER NURSING PROTOCOL Performed By: #### L 501.080 ####[facility] [address] [place], [address] FINGERSTICK GLU 454 mg/dL Invalid Interpretation Code 74-106 [facility] Comment on above: Result Comment: Dr James sim FollowedMANAGEMENT OF PATIENT CARE PER NURSING PROTOCOL Performed By: #### L 501.080 ####[facility] [address] [place], [address] FINGERSTICK GLU 496 mg/dL Invalid Interpretation Code 74-106 [facility] Comment on above: Result Comment: Dr James sim FollowedMANAGEMENT OF PATIENT CARE PER NURSING PROTOCOL Performed By: #### L 501.080 ####[facility] [address] [place], [address] FINGERSTICK GLU > 500 Invalid Interpretation Code [address] [place] [address] Comment on above: Result Comment: ADITI GEMENT OF PATIENT CARE PER NURSING PROTOCOL Performed By: #### L 501.080 ####[facility] [address] [place], [address] FINGERSTICK GLU > 500 Invalid Interpretation Code [address] [place] [address] Comment on above: Result Comment: ADITI GEMENT OF PATIENT CARE PER NURSING PROTOCOL Performed By: #### L 501.080 ####[facility] [address] [place], [address] FINGERSTICK GLU > 500 Invalid Interpretation Code [address] [place] [address] Comment on above: Result Comment: ADITI GEMENT OF PATIENT CARE PER NURSING PROTOCOL Performed By: #### L 501.080 ####[facility] [address] [place], [address] FINGERSTICK GLU 435 mg/dL High [address] [place] [address] Comment on above: Result Comment: ADITI GEMENT OF PATIENT CARE PER NURSING PROTOCOL Performed By: #### L 501.080 ####[facility] [address] [place], [address] Bilirubin, totalOrdered By: Dyana Hwang on 04-03-2025 Bilirubin [Mass/Vol] 0.38 mg/dL 0.00-1.30 [facility] FILI TEST Positive Normal [facility] Comment on above: Performed By: #### L 9000.0800 ####[facility] [address] [place], [address] Base excess Calc (Bld) [Moles/Vol] -8 mmol/L Low -2 to +2 [facility] Comment on above: Performed By: #### L 9000.0800 ####[facility] [address] [place], [address] Blood Gas Type ART Normal [facility] Comment on above: Performed By: #### L 8999.799 ####[facility] [address] [place], [address] CO2 [Moles/Vol] 18 mmol/L Normal [facility] Comment on above: Performed By: #### L 8999.08 ####[facility] [address] [place], [address] FI02 30.0 Normal [facility] Comment on above: Performed By: #### L 8999.799 ####[facility] [address] [place], [address] HCO3 (Bld) [Moles/Vol] 17.5 mmol/L Low 22-26 [facility] Comment on above: Performed By: #### L 8999.08 ####[facility] [address] [place], [address] Mode Not entered Normal [facility] Comment on above: Performed By: #### L 8999.08 ####[facility] [address] [place], [address] O2 Delivery Dev BiPAP Normal [facility] Comment on above: Performed By: #### L 8999.08 ####[facility] [address] [place], [address] pCO2 29.8 mmHg Low 35-45 [facility] Comment on above: Performed By: #### L 8999.08 ####[facility] [address] [place], [address] PEEP 10 Normal [facility] Comment on above: Performed By: #### L 8999.08 ####[facility] [address] [place], [address] pH (Bld) 7.38 [pH] Normal 7.35-7.45 [facility] Comment on above: Performed By: #### L 9000.0800 ####[facility] [address] [place], [address] PIP 18 Normal [facility] Comment on above: Performed By: #### L 9000.0800 ####[facility] [address] [place], [address] PO2 83 mmHG Normal 75-100 [facility] Comment on above: Performed By: #### L 9000.0800 ####[facility] [address] [place], [address] RR 12 Normal [facility] Comment on above: Performed By: #### L 9000.0800 ####[facility] [address] [place], [address] SITE R Radial Normal [facility] Comment on above: Performed By: #### L 9000.0800 ####[facility] [address] [place], [address] SO2 96 Normal 95-99 [facility] Comment on above: Performed By: #### L 9000.0800 ####[facility] [address] [place], [address] Blood base excess determinat ionOrdered By: Dyana Hwagn on 04-03-2025 Base excess Calc (BldV) [Moles/Vol] -8 mmol/L Low -2-2 [facility] Blood bicarbonate measuremen tOrdered By: Dyana Hwang on 04-03-2025 HCO3 (Bld) [Moles/Vol] 17.5 mmol/L Low 22-26 [facility] Blood cultureOrdered By: Elli Brandon on 04-03-2025 Bacteria identified Cx Nom (Bld) No growth in 5 days. [facility] Bacteria identified Cx Nom (Bld) No growth in 5 days. [facility] CBC W/Diff, Automatedon 06-0 3-2024 Absolute Lymph 0.43 X10 3/uL Low 0.83-4.51 [facility] Comment on above: Performed By: #### L 100.0100 ####[facility] [address] [place], [address] Absolute Neut 12.4 X10 3/uL High 2.0-7.7 [facility] Comment on above: Performed By: #### L 100.0100 ####[facility] [address] [place], [address] Basophils/100 WBC (Bld) 0.3 % Normal 0-1 [facility] Comment on above: Performed By: #### L 100.0100 ####[facility] [address] [place], [address] Eosinophils/100 WBC (Bld) 0.0 % Normal 0-5 [facility] Comment on above: Performed By: #### L 100.0100 ####[facility] [address] [place], [address] Erythrocyte distribution width (RBC) [Ratio] 13.4 % Normal 11.6-14.6 [facility] Comment on above: Performed By: #### L 100.0100 ####[facility] [address] [place], [address] Hematocrit (Bld) [Volume fraction] 28.9 % Low 40-54 [facility] Comment on above: Performed By: #### L 100.0100 ####[facility] [address] [place], [address] Hemoglobin (Bld) [Mass/Vol] 9.3 g/dL Low 13.0-16.5 [facility] Comment on above: Performed By: #### L 100.0100 ####[facility] [address] [place], [address] IG% 0.500 Normal 0.0-0.9 [facility] Comment on above: Result Comment: IG% - Immature Granulocytes (promyelocytes, myelocytes andmetamyelocytes) > 1% indicates that a LEFT SHIFT is Present. Performed By: #### L 100.0100 ####[facility] [address] [place], [address] Lymphocytes/100 WBC (Bld) 3.3 % Low 19-41 [facility] Comment on above: Performed By: #### L 100.0100 ####[facility] [address] [place], [address] MCH (RBC) [Entitic mass] 30.1 pg Normal 27.0-32.0 [facility] Comment on above: Performed By: #### L 100.0100 ####[facility] [address] [place], [address] MCHC (RBC) [Mass/Vol] 32.2 g/dL Normal 32-36 [facility] Comment on above: Performed By: #### L 100.0100 ####[facility] [address] [place], [address] MCV (RBC) [Entitic vol] 93.5 fL Normal 80-94 [facility] Comment on above: Performed By: #### L 100.0100 ####[facility] [address] [place], [address] Monocytes/100 WBC (Bld) 1.1 % Normal 0-10 [facility] Comment on above: Performed By: #### L 100.0100 ####[facility] [address] [place], [address] Neutrophils/100 WBC (Bld) 94.8 % High 47-70 [facility] Comment on above: Performed By: #### L 100.0100 ####[facility] [address] [place], [address] Nucleated RBC (Bld) [#/Vol] 0 10*3/uL Normal 0-5 [facility] Comment on above: Performed By: #### L 100.0100 ####[facility] [address] [place], [address] Platelet mean volume (Bld) [Entitic vol] 11.4 fL Normal 6.2-12.0 [facility] Comment on above: Performed By: #### L 100.0100 ####[facility] [address] [place], [address] Platelets (Bld) [#/Vol] 268 10*3/uL Normal 150-450 [facility] Comment on above: Performed By: #### L 100.0100 ####[facility] [address] [place], [address] RBC (Bld) [#/Vol] 3.09 10*6/uL Low 4.6-6.2 [facility] Comment on above: Performed By: #### L 100.0100 ####[facility] [address] [place], [address] RDW SD 45.9 fl High 35.1-43.9 [facility] Comment on above: Performed By: #### L 100.0100 ####[facility] [address] [place], [address] WBC (Bld) [#/Vol] 13.0 10*3/uL High 4.4-11.0 [facility] Comment on above: Performed By: #### L 100.0100 ####[facility] [address] [place], [address] Absolute Lymph 2.12 X10 3/uL Normal 0.83-4.51 [facility] Comment on above: Performed By: #### L 100.0100, L500.2500, L300.8000 ####[facility] [address] [place], [address] Absolute Neut 12.0 X10 3/uL High 2.0-7.7 [facility] Comment on above: Performed By: #### L 100.0100, L500.2500, L300.8000 ####[facility] [address] [place], [address] Basophils/100 WBC (Bld) 0.6 % Normal 0-1 [facility] Comment on above: Performed By: #### L 100.0100, L500.2500, L300.8000 ####[facility] [address] [place], [address] Eosinophils/100 WBC (Bld) 1.9 % Normal 0-5 [facility] Comment on above: Performed By: #### L 100.0100, L500.2500, L300.8000 ####[facility] [address] [place], [address] Erythrocyte distribution width (RBC) [Ratio] 13.2 % Normal 11.6-14.6 [facility] Comment on above: Performed By: #### L 100.0100, L500.2500, L300.8000 ####[facility] [address] [place], [address] Hematocrit (Bld) [Volume fraction] 32.2 % Low 40-54 [facility] Comment on above: Performed By: #### L 100.0100, L500.2500, L300.8000 ####[facility] [address] [place], [address] Hemoglobin (Bld) [Mass/Vol] 10.2 g/dL Low 13.0-16.5 [facility] Comment on above: Performed By: #### L 100.0100, L500.2500, L300.8000 ####[facility] [address] [place], [address] IG% 0.600 Normal 0.0-0.9 [facility] Comment on above: Result Comment: IG% - Immature Granulocytes (promyelocytes, myelocytes andmetamyelocytes) > 1% indicates that a LEFT SHIFT is Present. Performed By: #### L 100.0100, L500.2500, L300.8000 ####[facility] [address] [place], [address] Lymphocytes/100 WBC (Bld) 13.5 % Low 19-41 [facility] Comment on above: Performed By: #### L 100.0100, L500.2500, L300.8000 ####[facility] [address] [place], [address] MCH (RBC) [Entitic mass] 29.9 pg Normal 27.0-32.0 [facility] Comment on above: Performed By: #### L 100.0100, L500.2500, L300.8000 ####[facility] [address] [place], [address] MCHC (RBC) [Mass/Vol] 31.7 g/dL Low 32-36 [facility] Comment on above: Performed By: #### L 100.0100, L500.2500, L300.8000 ####[facility] [address] [place], [address] MCV (RBC) [Entitic vol] 94.4 fL High 80-94 [facility] Comment on above: Performed By: #### L 100.0100, L500.2500, L300.8000 ####[facility] [address] [place], [address] Monocytes/100 WBC (Bld) 7.0 % Normal 0-10 [facility] Comment on above: Performed By: #### L 100.0100, L500.2500, L300.8000 ####[facility] [address] [place], [address] Neutrophils/100 WBC (Bld) 76.4 % High 47-70 [facility] Comment on above: Performed By: #### L 100.0100, L500.2500, L300.8000 ####[facility] [address] [place], [address] Nucleated RBC (Bld) [#/Vol] 0 10*3/uL Normal 0-5 [facility] Comment on above: Performed By: #### L 100.0100, L500.2500, L300.8000 ####[facility] [address] [place], [address] Platelet mean volume (Bld) [Entitic vol] 10.8 fL Normal 6.2-12.0 [facility] Comment on above: Performed By: #### L 100.0100, L500.2500, L300.8000 ####[facility] [address] [place], [address] Platelets (Bld) [#/Vol] 300 10*3/uL Normal 150-450 [facility] Comment on above: Performed By: #### L 100.0100, L500.2500, L300.8000 ####[facility] [address] [place], [address] RBC (Bld) [#/Vol] 3.41 10*6/uL Low 4.6-6.2 [facility] Comment on above: Performed By: #### L 100.0100, L500.2500, L300.8000 ####[facility] [address] [place], [address] RDW SD 45.3 fl High 35.1-43.9 [facility] Comment on above: Performed By: #### L 100.0100, L500.2500, L300.8000 ####[facility] [address] [place], [address] WBC (Bld) [#/Vol] 15.7 10*3/uL High 4.4-11.0 [facility] Comment on above: Performed By: #### L 100.0100, L500.2500, L300.8000 ####[facility] [address] [place], [address] CO2 (BldV) [Moles/Vol]Ordere d By: John Brandon on 04-03-2025 CO2 [Moles/Vol] 27 mmol/L 23-33 [facility] CTA Chest W/WO Contraston CTA Chest W/WO Contrast Normal [facility] Calculated very low density lipoprotein (VLDL) cholesterol measurementOrdered By: Dyana Hwang on 04-03-2025 Calculated very low density lipoprotein (VLDL) cholesterol measurement 9 mg/dL 5-40 [facility] Carbon dioxide, total [Moles /volume] in Central venous bloodOrdered By: John Brandon on 04-03-2025 CO2 [Moles/Vol] 20.8 mmol/L Low 21.0-32.0 [facility] Chest 1 View (Portable)on Chest 1 View (Portable) Normal [facility] Chloride assayOrdered By: Shabbir Brandon on 04-03-2025 Chloride [Moles/Vol] 104 mmol/L 98-108 [facility] Comprehensive Metabolic Prof ilon 04-03-2025 Albumin [Mass/Vol] 3.6 g/dL Normal 3.4-4.8 [facility] Comment on above: Performed By: #### L 500.4050, L501.9520, L509.7001, L500.4100 ####[facility] [address] [place], [address] Albumin/Globulin [Mass ratio] 1.5 {ratio} Normal 0.9-2.4 [facility] Comment on above: Performed By: #### L 500.4050, L501.9520, L509.7001, L500.4100 ####[facility] [address] [place], [address] ALK PHOS 80 U/L Normal 40-129 [facility] Comment on above: Performed By: #### L 500.4050, L501.9520, L509.7001, L500.4100 ####[facility] [address] [place], [address] ALT [Catalytic activity/Vol] 16 U/L Normal <=46 [facility] Comment on above: Performed By: #### L 500.4050, L501.9520, L509.7001, L500.4100 ####[facility] [address] [place], [address] AST [Catalytic activity/Vol] 24 U/L Normal <=37 [facility] Comment on above: Performed By: #### L 500.4050, L501.9520, L509.7001, L500.4100 ####[facility] [address] [place], [address] Bilirubin [Mass/Vol] 0.38 mg/dL Normal 0.00-1.30 [facility] Comment on above: Performed By: #### L 500.4050, L501.9520, L509.7001, L500.4100 ####[facility] [address] [place], [address] BUN/CRE 24.6 RATIO High 10-20 [facility] Comment on above: Performed By: #### L 500.4050, L501.9520, L509.7001, L500.4100 ####[facility] [address] [place], [address] Calcium [Mass/Vol] 7.9 mg/dL Normal 7.6-11.0 [facility] Comment on above: Performed By: #### L 500.4050, L501.9520, L509.7001, L500.4100 ####[facility] [address] [place], [address] Chloride [Moles/Vol] 104 mmol/L Normal 98-108 [facility] Comment on above: Performed By: #### L 500.4050, L501.9520, L509.7001, L500.4100 ####[facility] [address] [place], [address] CO2 [Moles/Vol] 15.5 mmol/L Low 21.0-32.0 [facility] Comment on above: Performed By: #### L 500.4050, L501.9520, L509.7001, L500.4100 ####[facility] [address] [place], [address] Creatinine [Mass/Vol] 1.77 mg/dL High 0.70-1.20 [facility] Comment on above: Performed By: #### L 500.4050, L501.9520, L509.7001, L500.4100 ####[facility] [address] [place], [address] ECRCL 28.47 ml/min Low 50-250 [facility] Comment on above: Performed By: #### L 500.4050, L501.9520, L509.7001, L500.4100 ####[facility] [address] [place], [address] GAP 18 High 5-15 [facility] Comment on above: Performed By: #### L 500.4050, L501.9520, L509.7001, L500.4100 ####[facility] [address] [place], [address] GFR/1.73 sq M.predicted among non-blacks MDRD (S/P/Bld) [Vol rate/Area] 38 mL/min/{1.73_m2} Low >60 [facility] Comment on above: Result Comment: mL/m in/1.73m2 CKD-EPI Creatinine Equation (2020) Performed By: #### L 500.4050, L501.9520, L509.7001, L500.4100 ####[facility] [address] [place], [address] Globulin (S) [Mass/Vol] 2.4 g/dL Normal 2.2-4.2 [facility] Comment on above: Performed By: #### L 500.4050, L501.9520, L509.7001, L500.4100 ####[facility] [address] [place], [address] Glucose [Mass/Vol] 428 mg/dL High 70-99 [facility] Comment on above: Performed By: #### L 500.4050, L501.9520, L509.7001, L500.4100 ####[facility] [address] [place], [address] Potassium [Moles/Vol] 4.5 mmol/L Normal 3.3-5.1 [facility] Comment on above: Performed By: #### L 500.4050, L501.9520, L509.7001, L500.4100 ####[facility] [address] [place], [address] Sodium [Moles/Vol] 137 mmol/L Normal 133-145 [facility] Comment on above: Performed By: #### L 500.4050, L501.9520, L509.7001, L500.4100 ####[facility] [address] [place], [address] T PROT 6.0 g/dL Normal 5.9-8.4 [facility] Comment on above: Performed By: #### L 500.4050, L501.9520, L509.7001, L500.4100 ####[facility] [address] [place], [address] Urea nitrogen [Mass/Vol] 44 mg/dL High 4-19 [facility] Comment on above: Performed By: #### L 500.4050, L501.9520, L509.7001, L500.4100 ####[facility] [address] [place], [address] Consultation - Cardiologyon 04-03-2025 Consultation - Cardiology Normal [facility] Consultation - Intensiviston 04-03-2025 Consultation - Creative Intern Normal [facility] D-Dimer Quantitative (DVT/PE )on 04-03-2025 D-DIMER QUANT 1.86 FEU/ug/m Invalid Interpretation Code 0.27-0.49 [facility] Comment on above: Result Comment: D-Di shyanne ELEVATED (>0.49): Additional studies and clinicalassessments are indicated to conclude diagnosis of:Deep Vein Thrombosis (DVT) or Pulmonary Embolism (PE)CRITICAL VALUE CALLED TO [id number] Victor Hugo Santamaria.RESULTS READ BACK BY SAME. Performed By: #### L 100.0100, L500.2500, L300.8000 ####[facility] [address] [place], [address] Echo Completeon 04-03-2025 Echo Complete Normal [facility] Echocardiogram study reportO rdered By: Koffi Gibbs on 04-03-2025 Study report [facility] [address] [place] [address] Echo Complete 04/03/25 0920 MR#: [id number] Acct: [id number] Name: ENOC ARMANDO Rep #:[id number] : 1945 79 From: Koffi Gibbs MD [...] ~ Date Dictated: 04/03/25919 Date Transcribed: 04/03/251221 Child Guidance Counselor: Signed [facility] Work Phone: Emergency Department Summary on 04-03-2025 Emergency Department Summary Normal [facility] Eosinophil percentageOrdered By: John Brandon on 04-03-2025 Eosinophils/100 WBC (Bld) 1.9 % 0-5 [facility] Erythrocyte distribution wid th ratioOrdered By: John Brandon on 04-03-2025 Erythrocyte distribution width (RBC) [Ratio] 13.2 % 11.6-14.6 [facility] Erythrocyte distribution wid th standard deviationOrdered By: John Brandon on 04-03-2025 Erythrocyte distribution width (RBC) [Ratio] 45.3 fl High 35.1-43.9 [facility] Glomerular filtration rate ( GFR) estimation/1.73 sq m using serum, plasma, or whole bOrdered By: John Brandon on 04-03-2025 GFR/1.73 sq M.predicted among non-blacks MDRD (S/P/Bld) [Vol rate/Area] 35 mL/min/{1.73_m2} Low >60 [facility] Comment on above: mL/min/1.73m2 CKD-EP I Creatinine Equation (2020) H AND P Exam - Hospitaliston 04-03-2025 H&P Exam - Hospitalist Normal [facility] Hematocrit Auto (Bld) [Volum e fraction]Ordered By: John Brandon on 04-03-2025 Hematocrit (Bld) [Volume fraction] 32.2 % Low 40-54 [facility] Hemoglobin measurementOrdere d By: John Brandon on 04-03-2025 Hemoglobin (Bld) [Mass/Vol] 10.2 g/dL Low 13.0-16.5 [facility] Immature granulocytes/100 WB C Auto (Bld)Ordered By: John Brandon on 04-03-2025 Immature granulocytes/100 WBC (Bld) 0.600 % 0.0-0.9 [facility] Comment on above: IG% - Immature Granu locytes (promyelocytes, myelocytes and metamyelocytes) > 1% indicates that a LEFT SHIFT is Present. Influenza virus A and B and SARS-CoV-2 (COVID-19) and Respiratory syncytial virus RNAOrdered By: John Brandon on 04-03-2025 SARS-CoV-2 (COVID-19) RNA ALICE+probe Ql (Unsp spec) [facility] International normalized rat io (INR) calculationOrdered By: Dyana Hwang on 04-03-2025 INR Coag (Bld) [Relative time] 1.0 {INR} [facility] L499.0042on 04-03-2025 Trop T High Sen Normal <=22 [facility] Comment on above: Result Comment: Canc elled via OM: Duplicate Order Performed By: #### L 499.0042 ####[facility] [address] [place], [place], [address] Trop T High Sen 76 ng/L Invalid Interpretation Code <=22 [facility] Comment on above: Result Comment: Crit ical Result(s) Called at:0312 by:??DASIA SHRESTHAN TO HARLEY Results read back by same. Performed By: #### L 499.0042 ####[facility] [address] [place], [place], [address] L499.0043on 04-03-2025 Trop T High Sen Normal <=22 [facility] Comment on above: Result Comment: Canc elled via OM: Duplicate Order Performed By: #### L 499.0043 ####[facility] [address] [place], [place], [address] Trop T High Sen 80 ng/L Invalid Interpretation Code <=22 [facility] Comment on above: Result Comment: Crit ical Result(s) Called at: 0515 by: DASIA JOSEPH??Results read back by same. Performed By: #### L 499.0043 ####[facility] [address] [place], [address] L501.4021on 04-03-2025 Trop T High Sen 58 ng/L Invalid Interpretation Code <=22 [facility] Comment on above: Result Comment: Crit ical Result(s) Called at: 0058 by: DASIA ALBRIGHT??Results read back by same. Performed By: #### L 503.7505, L501.4021 ####[facility] [address] [place], [address] L503.7505on 04-03-2025 Natriuretic peptide B (Bld) [Mass/Vol] 6552 pg/mL High <=1800 [facility] Comment on above: Result Comment: Hear t Failure Unlikely: < 300 pg/mLHeart Failure Likely< 50 Years: > 450 pg/mL50-75 Years: > 900 pg/mL>75 Years: > 1800 pg/mL Performed By: #### L 503.7505, L501.4021 ####[facility] [address] [place], [address] L509.7001on 04-03-2025 Procalcitonin 0.31 ng/mL High <=0.10 [facility] Comment on above: Result Comment: Inte rpretation:<0.10-0.25 [...] By: #### L 500.4050, L501.9520, L509.7001, L500.4100 ####[facility] [address] [place], [address] LDL calc ser/plasOrdered By: Dyana Hwang on 04-03-2025 Cholesterol in LDL [Mass/Vol] 80 mg/dL [facility] Comment on above: Zvcyohxlaf=201-811 m g/dL & Higher Mzts=784 mg/dL or greater Laboratory - Chemistry and C hemistry - challengeOrdered By: Dyana Hwang on 04-03-2025 AST [Catalytic activity/Vol] 24 U/L <38 [facility] Lactic Acidon 04-03-2025 Lactate [Moles/Vol] 1.3 mmol/L Normal 0.0-2.0 [facility] Comment on above: Order Comment: Y Performed By: #### L 503.6005, M200.1000 ####[facility] [address] [place], [address] Lactic acid measurementOrder ed By: John Brandon on 04-03-2025 Lactate [Moles/Vol] 1.3 mmol/L 0.0-2.0 [facility] Legionella Antigen Urineon 0 04-03-2025 LEGU Normal [facility] Comment on above: Performed By: #### M 300.4500 ####[facility] [address] [place], [address] Lipid Profileon 04-03-2025 CHOL:HDL 2.87 Normal [facility] Comment on above: Performed By: #### L 500.4050, L501.9520, L509.7001, L500.4100 ####[facility] [address] [place], [address] Cholesterol [Mass/Vol] 137 mg/dL Normal <=200 [facility] Comment on above: Result Comment: Chol esterol level, Desirable <200 mg/dLBorderline high cholesterol 200-239 mg/dLHigh cholesterol >=240 mg/dLRecommendations of the NCEP Adult Treatment Panel for thefollowing risk-cutoff thresholds for the [place] American[place]ulation. Performed By: #### L 500.4050, L501.9520, L509.7001, L500.4100 ####[facility] [address] [place], [address] Cholesterol in HDL [Mass/Vol] 48 mg/dL Normal [facility] Comment on above: Result Comment: Anastacia onal Cholesterol Education Program (NCEP) guidelines:<40 mg/dL: Low HDL-cholesterol (major risk factor for CHD)>= 60 mg/dL: High HDL-cholesterol (negative risk factor forCHD)HDL-cholesterol is affected by a number of factors, e.g.smoking, exercise, hormones, sex and age. Performed By: #### L 500.4050, L501.9520, L509.7001, L500.4100 ####[facility] [address] [place], [address] Cholesterol in LDL [Mass/Vol] 80 mg/dL Normal [facility] Comment on above: Result Comment: Bord xxgvag=236-772 mg/dL Higher Idab=502 mg/dL or greater Performed By: #### L 500.4050, L501.9520, L509.7001, L500.4100 ####[facility] [address] [place], [address] Cholesterol in VLDL [Mass/Vol] 9 mg/dL Normal 5-40 [facility] Comment on above: Performed By: #### L 500.4050, L501.9520, L509.7001, L500.4100 ####[facility] [address] [place], [address] Triglyceride [Mass/Vol] 44 mg/dL Normal [facility] Comment on above: Result Comment: The drugs N-Acetylcysteine and Metamizole may falselydepress this assay.Normal range: <150 mg/dLBorderline High: 150-199 mg/dLHigh: 200-499 mg/dLVery High: >500 mg/dL Performed By: #### L 500.4050, L501.9520, L509.7001, L500.4100 ####[facility] [address] [place], [address] M100.678on 04-03-2025 M100.678 SARS-CoV-2 (COVID 19) Negative INFLUENZA A Negative INFLUENZA B Negative RSV PCR Negative Normal [facility] Comment on above: Performed By: #### M 100.678 ####[facility] [address] [place], [address] M8200.1075on 04-03-2025 M8200.1075 Pending MRSA PCR MRSA NEGATIVE STAPH. AUREUS PCR STAPH. AUREUS NEGATIVE Normal [facility] Comment on above: Performed By: #### M 8200.1075 ####[facility] [address] [place], [address] MCV (mean corpuscular volume ) determinationOrdered By: John Brandon on 04-03-2025 MCV (RBC) [Entitic vol] 94.4 fL High 80-94 [facility] Magnesiumon 04-03-2025 Magnesium [Mass/Vol] 2.3 mg/dL High 1.5-2.2 [facility] Comment on above: Order Comment: Comme nts: may add to ED labs Performed By: #### L 300.3900, L501.5200, L300.4310 ####[facility] [address] [place], [address] Magnesium measurement (mass/ volume)Ordered By: Dyana Hwang on 04-03-2025 Magnesium (Unsp spec) [Mass/Vol] 2.3 mg/dL High 1.5-2.2 [facility] Mean corpuscular hemoglobin (MCH) determinationOrdered By: John Brandon on 04-03-2025 MCH (RBC) [Entitic mass] 29.9 pg 27.0-32.0 [facility] Mean corpuscular hemoglobin concentration (MCHC) determinationOrdered By: John Brandon on 04-03-2025 MCHC (RBC) [Mass/Vol] 31.7 g/dL Low 32-36 [facility] Mean platelet volume determi nationOrdered By: John Brandon on 04-03-2025 Platelet mean volume (Bld) [Entitic vol] 10.8 fL 6.2-12.0 [facility] Measurement, pHOrdered By: Anabelle Hwang on 04-03-2025 pH (Unsp spec) 7.38 [pH] 7.35-7.45 [facility] Monocyte percentageOrdered B y: John Brandon on 04-03-2025 Monocytes/100 WBC (Bld) 7.0 % 0-10 [facility] Natriuretic peptide.B prohor katja N-Terminal [Mass/volume] in Serum or PlasmaOrdered By: John Brandon on 04-03-2025 Natriuretic peptide.B prohormone N-Terminal [Mass/Vol] 6552 pg/mL High <1800 [facility] Comment on above: Heart Failure Unlike ly: < 300 pg/mLHeart Failure Likely< 50 Years: > 450 pg/mL50-75 Years: > 900 pg/mL>75 Years: > 1800 pg/mL Neutrophil percentageOrdered By: John Brandon on 04-03-2025 Neutrophils/100 WBC (Bld) 76.4 % High 47-70 [facility] No Panel InformationOrdered By: Dyana Hwang on 04-03-2025 Bedside Blood Gas PEEP 10 [facility] Bld Gas Peak Inspiratory Pressure 18 [facility] Blood Gas Respiration Rate 12 [facility] Blood Gas Sample Site R Radial [facility] Blood Gas Specimen Type ART [facility] Blood Gas Vent Mode Not entered [facility] Oxygen Delivery Device BiPAP [facility] No Panel InformationOrdered By: John Brandon on 04-03-2025 Blood Gas Clinical Comments 18. 10. 30% [facility] Nucleated red blood cell per centageOrdered By: John Brandon on 04-03-2025 Nucleated RBC/100 WBC (Bld) [Ratio] 0 % 0-5 [facility] Partial Thromboplast Timeon 04-03-2025 aPTT Coag (Bld) [Time] 212.0 s Invalid Interpretation Code 24.1-36.2 [facility] Comment on above: Result Comment: CRIT ICAL VALUE CALLED TO Carol CORONA04/03/25 1243 Ness Huang.RESULTS READ BACK BY SAME. Performed By: #### L 300.4310 ####[facility] [address] [place], [address] aPTT Coag (Bld) [Time] 37.3 s High 24.1-36.2 [facility] Comment on above: Performed By: #### L 300.3900, L501.5200, L300.4310 ####[facility] [address] [place], [address] Platelet countOrdered By: Shabbir Brandon on 04-03-2025 Platelets (Bld) [#/Vol] 300 10*3/uL 150-450 [facility] Potassium measurement (mass/ volume)Ordered By: John Brandon on 04-03-2025 Potassium (Unsp spec) [Mass/Vol] 4.4 mmol/L 3.3-5.1 [facility] Procalcitonin [Mass/volume] in Serum or Plasma by ImmunoassayOrdered By: Dyana Hwang on 04-03-2025 Procalcitonin IA [Mass/Vol] 0.31 ng/mL High <0.11 [facility] Comment on above: Interpretation:<0.10 -0.25 ng/mL: Antibiotic [...] Coag (PPP) [Relative time] 1.0 {INR} Normal [facility] Comment on above: Performed By: #### L 300.3900, L501.5200, L300.4310 ####[facility] [address] [place], [address] PT Coag (PPP) [Time] 13.4 s Normal 11.7-14.9 [facility] Comment on above: Performed By: #### L 300.3900, L501.5200, L300.4310 ####[facility] [address] [place], [address] Prothrombin timeOrdered By: Dyana Hwang on 04-03-2025 PT Coag (PPP) [Time] 13.4 s 11.7-14.9 [facility] RBC Auto (Bld) [#/Vol]Ordere d By: John Brandon on 04-03-2025 RBC (Bld) [#/Vol] 3.41 10*6/uL Low 4.6-6.2 [facility] RESPIRATORY PANEL MOLECULARo n 04-03-2025 RP PANEL Normal [facility] Comment on above: Performed By: #### M 100.638 ####[facility] [address] [place], [address] Respiratory pathogens detect ion panel by molecular detection methodOrdered By: Dyana Hwang on 04-03-2025 Respiratory pathogens DNA and RNA panel ALICE+probe (Resp) [facility] Screening total cholesterol/ high density lipoprotein (HDL) cholesterol ratioOrdered By: Dyana Hwang on 04-03-2025 Cholesterol.total/Cholest santos in HDL [Mass ratio] 2.87 {ratio} [facility] Serum creatinine measurement (mass/volume)Ordered By: John Brandon on 04-03-2025 Creatinine [Mass/Vol] 1.88 mg/dL High 0.70-1.20 [facility] Serum globulin measurementOr dered By: Dyana Hwang on 04-03-2025 Globulin (S) [Mass/Vol] 2.4 g/dL 2.2-4.2 [facility] Serum glucose measurement (m ass/volume)Ordered By: John Brandon on 04-03-2025 Glucose [Mass/Vol] 255 mg/dL High 70-99 [facility] Serum or plasma alanine clayton otransferase (ALT) measurementOrdered By: Dyana Hwang on 04-03-2025 ALT [Catalytic activity/Vol] 16 U/L <47 [facility] Serum or plasma albumin nikkie urement (mass/volume)Ordered By: Dyana Hwang on 04-03-2025 Albumin [Mass/Vol] 3.6 g/dL 3.4-4.8 [facility] Serum or plasma albumin/glob ulin mass ratioOrdered By: Dyana Hwang on 04-03-2025 Albumin/Globulin [Mass ratio] 1.5 {ratio} 0.9-2.4 [facility] Serum or plasma alkaline dwight sphatase measurementOrdered By: Dyana Hwang on 04-03-2025 ALP [Catalytic activity/Vol] 80 U/L 40-129 [facility] Serum or plasma calcium nikkie urement (mass/volume)Ordered By: John Brandon on 04-03-2025 Calcium [Mass/Vol] 8.8 mg/dL 7.6-11.0 [facility] Serum or plasma cholesterol in HDL measurement (mass/volume)Ordered By: Dyana Hwang on 04-03-2025 Cholesterol in HDL [Mass/Vol] 48 mg/dL >40 [facility] Comment on above: National Cholesterol Education Program (NCEP) guidelines:<40 mg/dL: Low HDL-cholesterol (major risk factor for CHD)>= 60 mg/dL: High HDL-cholesterol (negative risk factor for CHD)HDL-cholesterol is affected by a number of factors, e.g. smoking, exercise, hormones, sex and age. Serum or plasma cholesterol measurement (mass/volume)Ordered By: Dyana Hwang on 04-03-2025 Cholesterol [Mass/Vol] 137 mg/dL <201 [facility] Comment on above: Cholesterol level, D esirable <200 mg/dLBorderline high cholesterol 200-239 mg/dLHigh cholesterol >=240 mg/dLRecommendations of the NCEP Adult Treatment Panel for the following risk-cutoff thresholds for the [place] population. Serum or plasma urea nitroge n measurement (mass/volume)Ordered By: John Brandon on 04-03-2025 Urea nitrogen [Mass/Vol] 42 mg/dL High 4-19 [facility] Sodium levelOrdered By: Lesley Brandon on 04-03-2025 Sodium [Moles/Vol] 139 mmol/L 133-145 [facility] Strep pneumoniae Antig(UR,CS F)on 04-03-2025 STPAG Normal [facility] Comment on above: Performed By: #### M 300.4600 ####[facility] [address] [place], [place], [address] TSH DL <= 0.005 mIU/L QnOrde red By: Dyana Hwang on 04-03-2025 TSH Qn 0.530 uIU/mL 0.300-4.200 [facility] Thyroid Stim Hormone (TSH)on 04-03-2025 TSH 0.530 uIU/mL Normal 0.300-4.200 [facility] Comment on above: Performed By: #### L 500.4050, L501.9520, L509.7001, L500.4100 ####[facility] [address] [place], [place], [address] Total carbon dioxide measure mentOrdered By: Dyana Hwang on 04-03-2025 CO2 [Moles/Vol] 18 mmol/L [facility] Total proteinOrdered By: Aut eleanor Hwang on 04-03-2025 Protein [Mass/Vol] 6.0 g/dL 5.9-8.4 [facility] Triglycerides measurementOrd ered By: Dyana Hwang on 04-03-2025 Triglyceride [Mass/Vol] 44 mg/dL <199 [facility] Comment on above: The drugs N-Acetylcy steine and Metamizole may falsely depress this assay. Normal range: <150 mg/dLBorderline High: 150-199 mg/dLHigh: 200-499 mg/dLVery High: >500 mg/dL Troponin T.cardiac [Mass/vol ume] in Serum or Plasma by High sensitivity methodOrdered By: John Brandon on 04-03-2025 Troponin T.cardiac High sensitivity method [Mass/Vol] 80 ng/L High <22 [facility] Comment on above: Critical Result(s) C alled at: 0515 by: DASIA JOSEPH Results read back by same. Troponin T.cardiac High sensitivity method [Mass/Vol] 76 ng/L High <22 [facility] Comment on above: Critical Result(s) C alled at:0312 by: DASIA BOJORQUEZ Results read back by same. Troponin T.cardiac High sensitivity method [Mass/Vol] 58 ng/L High <22 [facility] Comment on above: Critical Result(s) C alled at: 0058 by: DASIA MOYA TO DELFIN ALBRIGHT Results read back by same. Urine Legionella pneumophila antigen detectionOrdered By: Dyana Hwang on 04-03-2025 L. pneumophila Ag Ql (U) [facility] Urine cultureOrdered By: Cesilia Hwang on 04-03-2025 Bacteria identified Cx Nom (U) Culture exhibits no growth. [facility] Venous Blood Gason 5 Blood Gas Type JUANITA Normal [facility] Comment on above: Performed By: #### L 9000.0810 ####[facility] [address] [place], [place], [address] CO2 [Moles/Vol] 27 mmol/L Normal 23-33 [facility] Comment on above: Performed By: #### L 9000.0810 ####[facility] [address] [place], [place], [address] Comment 18. 10. 30% Normal [facility] Comment on above: Performed By: #### L 9000.0810 ####[facility] [address] [place], [address] FI02 30.0 Normal [facility] Comment on above: Performed By: #### L 9000.0810 ####[facility] [address] [place], [place], [id number] HCO3 (Bld) [Moles/Vol] 26 mmol/L Normal 22-26 [facility] Comment on above: Performed By: #### L 9000.0810 ####[facility] [address] [place], [address] O2 Delivery Dev BiPAP Normal [facility] Comment on above: Performed By: #### L 9000.0810 ####[facility] [address] [place], [address] SITE Not entered Normal [facility] Comment on above: Performed By: #### L 9000.0810 ####[facility] [address] [place], [address] VBG BE 0 mmol/L Normal -1.0-3.5 [facility] Comment on above: Performed By: #### L 9000.0810 ####[facility] [address] [place], [address] VBG pCO2 46.6 mmHg Normal 41-51 [facility] Comment on above: Performed By: #### L 9000.0810 ####[facility] [address] [place], [address] VBG pH 7.35 Normal 7.32-7.42 [facility] Comment on above: Performed By: #### L 9000.0810 ####[facility] [address] [place], [address] VBG PO2 44 mmHg High 25-40 [facility] Comment on above: Performed By: #### L 9000.0810 ####[facility] [address] [place], [address] VBG SO2 76 High 50-70 [facility] Comment on above: Performed By: #### L 9000.0810 ####[facility] [address] [place], [address] Venous blood base excess heriberto surementOrdered By: John Brandon on 04-03-2025 Base excess Calc (BldV) [Moles/Vol] 0 mmol/L -1.0-3.5 [facility] Venous blood bicarbonate heriberto surementOrdered By: John Brandon on 04-03-2025 HCO3 (Bld) [Moles/Vol] 26 mmol/L 22-26 [facility] Venous blood oxygen saturati on measurementOrdered By: John Brandno on 04-03-2025 Oxygen saturation in Blood 76 % High 50-70 [facility] Venous blood pH measurementO rdered By: John Brandon on 04-03-2025 pH (BldV) 7.35 [pH] 7.32-7.42 [facility] Venous blood partial pressur e of carbon dioxide measurementOrdered By: John Brandon on 04-03-2025 CO2 (BldV) [Partial pressure] 46.6 mm[Hg] 41-51 [facility] Venous blood partial pressur e of oxygen measurementOrdered By: John Brandon on 04-03-2025 Oxygen (BldV) [Partial pressure] 44 mm[Hg] High 25-40 [facility] White blood cell (WBC) count Ordered By: John Brandon on 04-03-2025 WBC (Bld) [#/Vol] 15.7 10*3/uL High 4.4-11.0 [facility] BASIC METABOLIC PANEL WITH A NION GAPon 03-24-2025 Calcium [Mass/Vol] 8.6 mg/dL Normal 8.6-10.3 [facility] Comment on above: Performed By: #### 9 0183 #### [facility] [address], [address] [place] [address] Computer Equipment Installer: Jadon Velez MD Chloride [Moles/Vol] 104 mmol/L Normal 98-110 [facility] Comment on above: Performed By: #### 9 6156 #### [facility] [address], [address] [place], [place] [id number] Computer Equipment Installer: Jadon Velez MD CO2 [Moles/Vol] 23 mmol/L Normal 20-32 [facility] Comment on above: Performed By: #### 9 2498 #### [facility] [address], [address] [place] [address] Computer Equipment Installer: Jadon Velez MD Creatinine [Mass/Vol] 1.96 mg/dL High 0.70-1.[address] [facility] Comment on above: Performed By: #### 9 2498 #### [facility] [address], [address] [place] [address] Computer Equipment Installer: Jadon Velez MD ELECTROLYTE BALANCE 11 mmol/L (calc) Normal 7-17 [facility] Comment on above: Performed By: #### 9 2498 #### [facility] [place] [address] Computer Equipment Installer: Jadon Velez MD GFR/1.73 sq M.predicted among non-blacks MDRD (S/P/Bld) [Vol rate/Area] 34 mL/min/{1.73_m2} Low > OR = 60 [facility] Comment on above: Performed By: #### 9 2498 #### [facility] [address], [address] [place] [address] Computer Equipment Installer: Jadon Velez MD Glucose [Mass/Vol] 301 mg/dL High 65-99 [facility] Comment on above: Result Comment: Fasting reference interval For someone without known diabetes, a glucose value >125 mg/dL indicates that they may have diabetes and this should be confirmed with a follow-up test. Performed By: #### 9 2498 #### [facility] [address], [address] [place] [address] Computer Equipment Installer: Jadon Velez MD Potassium [Moles/Vol] 4.2 mmol/L Normal 3.5-5.[address] [facility] Comment on above: Performed By: #### 9 2498 #### [facility] [address], [address] [place] [address] Computer Equipment Installer: Jadon Velez MD Sodium [Moles/Vol] 138 mmol/L Normal 135-146 [facility] Comment on above: Performed By: #### 9 2498 #### [facility] [address] [place] [address], [address] [place] [phone] Computer Equipment Installer: Jadon Velez MD Urea nitrogen [Mass/Vol] 39 mg/dL High 7-25 [facility] Comment on above: Performed By: #### 9 2498 #### [facility] of [address], [address] [place] [phone] Computer Equipment Installer: Jadon Velez MD Urea nitrogen/Creatinine [Mass ratio] 20 mg/mg Normal 6- [facility] Comment on above: Performed By: #### 9 2498 #### [facility] of [address], [address] Computer Equipment Installer: Jadon Velez MD APTT HEPARIN COVERAGEon aPTT Coag (Bld) [Time] 86 s High 23-34 [facility] Comment on above: Order Comment: Thera peutic range for APTT's is 68 - 104 seconds Performed By: #### 4 6848 ####[facility] [address] [place] [address] Moody Martinez M.D. 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 [id number] Chloride [Moles/Vol] 103 mmol/L Normal 98-[address] 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 Performed By: #### 4 6124 #### LAB [address] [place], [place] [address] Moody Martinez M.D. 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 [id number] CBCon 03-05-2025 AUTO NRBC 0.0 % Normal [facility] Comment on above: Performed By: #### 4 5218 #### LAB [address] [place] [address] Moody Martinez M.D. [id number] AUTO NRBC ABS COUNT 0.00 K/mcL Normal 0.00-0.00 [facility] Comment on above: Performed By: #### 4 5218 #### LAB [address] [place] [address] Moody Martinez M.D. [id number] Erythrocyte distribution width (RBC) [Ratio] 13.0 % Normal 11.6-14.8 [facility] Comment on above: Performed By: #### 4 5218 #### LAB [address] [place] [address] Moody Martinez M.D. [id number] Hematocrit (Bld) [Volume fraction] 28.4 % Low 41.0-53.0 [facility] Comment on above: Performed By: #### 4 5218 #### LAB [address] [place] [address] Moody Martinez M.D. [id number] Hemoglobin (Bld) [Mass/Vol] 9.3 g/dL Low 13.5-17.5 [facility] Comment on above: Performed By: #### 4 5218 #### LAB [address] [place] [address] Moody Martinez M.D. [id number] MCH (RBC) [Entitic mass] 30.3 pg Normal 26.0-34.0 [facility] Comment on above: Performed By: #### 4 5218 #### LAB [address] [place] [address] Moody Martinez M.D. [id number] MCV (RBC) [Entitic vol] 92.5 fL Normal 80.0-100.0 [facility] Comment on above: Performed By: #### 4 5218 #### LAB [address] [place] [address] Moody Martinez M.D. [id number] MEAN CORPUSCULAR HEMOGLOBIN CONC 32.7 g/dL Normal 31.0-37.0 [facility] Comment on above: Performed By: #### 4 5218 #### LAB [address] [place] [address] Moody Martinez M.D. [id number] Platelet mean volume (Bld) [Entitic vol] 11.8 fL Normal 9.4-12.4 [facility] Comment on above: Performed By: #### 4 5218 #### LAB [address] [place] [address] Moody Martinez M.D. [id number] Platelets (Bld) [#/Vol] 191 10*3/uL Normal 150-400 [facility] Comment on above: Performed By: #### 4 5218 #### LAB [address] [place] [address] Moody Martinez M.D. [id number] RBC (Bld) [#/Vol] 3.07 10*6/uL Low 4.50-5.90 [facility] Comment on above: Performed By: #### 4 5218 #### LAB [address] [place] [address] Moody Martinez M.D. [id number] WBC (Bld) [#/Vol] 9.14 10*3/uL Normal 4.50-11.00 [facility] Comment on above: Performed By: #### 4 5218 #### LAB [address] [place] [address] Moody Martinez M.D. [id number] MAGNESIUM LEVELon 03-05-2025 Magnesium [Mass/Vol] 2.2 mg/dL Normal 1.6-2.[address] [facility] Comment on above: Performed By: #### 4 6109 #### LAB [address] [place] [address] Moody Martinez M.D. [id number] POC GLUCOSE - [facility] 025 Glucose [Mass/Vol] 249 mg/dL High [address] [place] [address] Comment on above: Performed By: #### 4 6932 #### [facility] [address] [place] [address] Moody Martinez M.D. [id number] Glucose [Mass/Vol] 188 mg/dL [address] Comment on above: Performed By: #### 4 6932 #### [facility] [address] [place] [address] Moody Martinez M.D. [id number] Glucose [Mass/Vol] 115 mg/dL [address] Comment on above: Performed By: #### 4 6932 #### [facility] [address] [place] [address] Moody Martinez M.D. [id number] POTASSIUM LEVELon 03-05-2025 Potassium [Moles/Vol] 3.4 mmol/L Low 3.5-5.1 [facility] Comment on above: Performed By: #### 4 6351 #### LAB [address] [place] [address] Moody Martinez M.D. [id number] APTT HEPARIN COVERAGEon aPTT Coag (Bld) [Time] 72 s High 23-34 [facility] Comment on above: Order Comment: Thera peutic range for APTT's is 68 - 104 seconds Performed By: #### 4 4014 #### LAB [address] [place], [place] [address] Moody Martinez M.D. [id number] BASIC METABOLIC PANELon 05-0 Anion gap [Moles/Vol] 16 mmol/L Normal 10-20 [facility] Comment on above: Order Comment: [facility] Services has implemented the eGFR calculation approach that does not have a coefficient for race that conforms to the NKF-ASN Task Force Recommendations. Performed By: #### 4 6124 #### LAB [address] [place] [address] Moody Martinez M.D. [id number] Calcium [Mass/Vol] 8.3 mg/dL Low 8.4-10.2 [facility] Comment on above: Order Comment: [facility] has implemented the eGFR calculation approach that does not have a coefficient for race that conforms to the NKF-ASN Task Force Recommendations. Performed By: #### 4 6124 #### LAB [address] [place] [address] Moody Martinez M.D. [id number] Chloride [Moles/Vol] 103 mmol/L Normal 98-[address] [facility] Comment on above: Order Comment: [facility] has implemented the eGFR calculation approach that does not have a coefficient for race that conforms to the NKF-ASN Task Force Recommendations. Performed By: #### 4 6124 #### LAB [address] [place] [id number] Moody Martinez M.D. [id number] Creatinine [Mass/Vol] 1.89 mg/dL High 0.80-1.30 [facility] Comment on above: Order Comment: [facility] has implemented the eGFR calculation approach that does not have a coefficient for race that conforms to the NKF-ASN Task Force Recommendations. Performed By: #### 4 6124 #### LAB [address] [place] [id number] Moody Martinez M.D. [id number] EGFR 35 mL/min/1.73 m2 Low >=60 [facility] Comment on above: Order Comment: [facility] has implemented the eGFR calculation approach that does not have a coefficient for race that conforms to the NKF-ASN Task Force Recommendations. Result Comment: Albin mated GFR was calculated using the 2020 CKD-EPI creatinine equation. Performed By: #### 4 6124 ####[facility] [address] [place] [address] Moody Martinez M.D. [id number] Glucose [Mass/Vol] 190 mg/dL High 65-99 [facility] Comment on above: Order Comment: [facility] has implemented the eGFR calculation approach that does not have a coefficient for race that conforms to the NKF-ASN Task Force Recommendations. Performed By: #### 4 6124 #### [facility] [address] [place] [address] Moody Martinez M.D. [id number] HCO3 (Bld) [Moles/Vol] 25 mmol/L Normal 21-32 [facility] Comment on above: Order Comment: [facility] has implemented the eGFR calculation approach that does not have a coefficient for race that conforms to the NKF-ASN Task Force Recommendations. Performed By: #### 4 6112 #### LAB [address] [place] [address] Moody Martinez M.D. [id number] Potassium [Moles/Vol] 3.5 mmol/L Normal 3.5-5.1 [facility] Comment on above: Order Comment: [facility] has implemented the eGFR calculation approach that does not have a coefficient for race that conforms to the NKF-ASN Task Force Recommendations. Performed By: #### 4 6117 ####[facility] [address] [place] [address] Moody Martinez M.D. [id number] Sodium [Moles/Vol] 140 mmol/L Normal 135-145 [facility] Comment on above: Order Comment: [facility] has implemented the eGFR calculation approach that does not have a coefficient for race that conforms to the NKF-ASN Task Force Recommendations. Performed By: #### 4 6124 #### LAB [address] [place] [address] Moody Martinez M.D. [id number] Urea nitrogen [Mass/Vol] 45 mg/dL High 8-25 [facility] Comment on above: Order Comment: [facility] has implemented the eGFR calculation approach that does not have a coefficient for race that conforms to the NKF-ASN Task Force Recommendations. Performed By: #### 4 6124 #### LAB [address] [place] [address] Moody Martinez M.D. [id number] Urea nitrogen/Creatinine [Mass ratio] 23.8 mg/mg High 10.0-20.0 [facility] Comment on above: Order Comment: [facility] has implemented the eGFR calculation approach that does not have a coefficient for race that conforms to the NKF-ASN Task Force Recommendations. Performed By: #### 4 6124 #### LAB [address] [place] [address] Moody Martinez M.D. [id number] CBCon 03-04-2025 AUTO NRBC 0.0 % Normal [facility] Comment on above: Performed By: #### 4 5218 #### LAB [address] [place] [address] Moody Martinez M.D. [id number] AUTO NRBC ABS COUNT 0.00 K/mcL Normal 0.00-0.00 [facility] Comment on above: Performed By: #### 4 5218 #### LAB [address] [place] [address] Moody Martinez M.D. [id number] Erythrocyte distribution width (RBC) [Ratio] 13.1 % Normal 11.6-14.8 [facility] Comment on above: Performed By: #### 4 5218 #### LAB [address] [place] [address] Moody Martinez M.D. [id number] Hematocrit (Bld) [Volume fraction] 28.1 % Low 41.0-53.0 [facility] Comment on above: Performed By: #### 4 5218 #### LAB [address] [place] [address] Moody Martinez M.D. [id number] Hemoglobin (Bld) [Mass/Vol] 9.0 g/dL Low 13.5-17.5 [facility] Comment on above: Performed By: #### 4 5218 #### LAB [address] [place] [address] Moody Martinez M.D. [id number] MCH (RBC) [Entitic mass] 30.6 pg Normal 26.0-34.0 [facility] Comment on above: Performed By: #### 4 5218 #### LAB [address] [place] [address] Moody Martinez M.D. [id number] MCV (RBC) [Entitic vol] 95.6 fL Normal 80.0-100.0 [facility] Comment on above: Performed By: #### 4 5218 #### LAB [address] [place] [address] Moody Martinez M.D. [id number] MEAN CORPUSCULAR HEMOGLOBIN CONC 32.0 g/dL Normal 31.0-37.0 [facility] Comment on above: Performed By: #### 4 5218 #### LAB [address] [place] [address] Moody Martinez M.D. [id number] Platelet mean volume (Bld) [Entitic vol] 11.8 fL Normal 9.4-12.4 [facility] Comment on above: Performed By: #### 4 5218 #### LAB [address] [place] [address] Moody Martinez M.D. [id number] Platelets (Bld) [#/Vol] 175 10*3/uL Normal 150-400 [facility] Comment on above: Performed By: #### 4 5218 #### LAB [address] [place] [address] Moody Martinez M.D. [id number] RBC (Bld) [#/Vol] 2.94 10*6/uL Low 4.50-5.90 [facility] Comment on above: Performed By: #### 4 5218 #### LAB [address] [place] [address] Moody Martinez M.D. [id number] WBC (Bld) [#/Vol] 8.08 10*3/uL Normal 4.50-11.00 [facility] Comment on above: Performed By: #### 4 5218 #### LAB [address] [place] [address] Moody Martinez M.D. [id number] MAGNESIUM LEVELon 03-04-2025 Magnesium [Mass/Vol] 2.2 mg/dL Normal 1.6-2.[address] [facility] Comment on above: Performed By: #### 4 6109 #### LAB [address] [place] [address] Moody Martinez M.D. [id number] POC GLUCOSE - [facility] 025 Glucose [Mass/Vol] 51 mg/dL Off scale low [address] [place] [address] Comment on above: Order Comment: Criti christian result acted upon time of test. Test performed at bedside. Performed By: #### 4 6993 #### LAB [address] [place] [address] Moody Martinez M.D. [id number] Glucose [Mass/Vol] 354 mg/dL [address] Comment on above: Performed By: #### 4 6958 #### LAB [address] [place] [address] Moody Martinez M.D. [id number] Glucose [Mass/Vol] 338 mg/dL [address] Comment on above: Performed By: #### 4 6956 #### LAB [address] [place] [address] Moody Martinez M.D. [id number] Glucose [Mass/Vol] 258 mg/dL [address] Comment on above: Performed By: #### 4 9747 ####[facility] [address] [place] [id number] Moody Martinez M.D. [id number] Glucose [Mass/Vol] 242 mg/dL High 65-99 [facility] Comment on above: Performed By: #### 4 6932 ####[facility] [address] [place] [address] Moody Martinez M.D. [id number] POTASSIUM LEVELon 03-04-2025 Potassium [Moles/Vol] 4.1 mmol/L Normal 3.5-5.1 [facility] Comment on above: Result Comment: Slig htly Hemolyzed Performed By: #### 4 6351 #### LAB [address] [place] [address] Moody Martinez M.D. [id number] TROPONIN (ONCE)on 03-04-2025 BASELINE TROPONIN T NG/L 1494 ng/L Off scale high <=22 [facility] Comment on above: Performed By: #### L [id number] ####[facility] [address] [place] [address] Moody Martinez M.D. [id number] TROPONIN T INTERPRETATION Possible acute cardiac injury. Normal [facility] Comment on above: Performed By: #### L [id number] ####[facility] [address] [place] [address] Moody Martinez M.D. [id number] APTT HEPARIN COVERAGEon 05-0 aPTT Coag (Bld) [Time] 82 s High 23-34 [facility] Comment on above: Order Comment: Thera peutic range for APTT's is 68 - 104 seconds Performed By: #### 4 6932 #### [facility] [address] [place] [address] Moody Martinez M.D. [id number] aPTT Coag (Bld) [Time] 92 s High 23-34 [facility] Comment on above: Order Comment: Thera peutic range for APTT's is 68 - 104 seconds Performed By: #### 4 6848 ####[facility] [address] [place] [address] Moody Martinez M.D. 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 [id number] BASIC METABOLIC PANELon 05-0 Anion gap [Moles/Vol] 15 mmol/L Normal 10-20 [facility] Comment on above: Order Comment: [facility] has implemented the eGFR calculation approach that does not have a coefficient for race that conforms to the NKF-ASN Task Force Recommendations. Performed By: #### 4 6124 #### LAB [address] [place] [address] Moody Martinez M.D. [id number] Calcium [Mass/Vol] 8.3 mg/dL Low 8.4-10.2 [facility] Comment on above: Order Comment: [facility] has implemented the eGFR calculation approach that does not have a coefficient for race that conforms to the NKF-ASN Task Force Recommendations. Performed By: #### 4 6124 #### LAB [address] [place] [address] Moody Martinez M.D. [id number] Chloride [Moles/Vol] 103 mmol/L Normal 98-[address] [facility] Comment on above: Order Comment: [facility] has implemented the eGFR calculation approach that does not have a coefficient for race that conforms to the NKF-ASN Task Force Recommendations. Performed By: #### 4 6124 #### LAB [address] [place] [address] Moody Martinez M.D. [id number] Creatinine [Mass/Vol] 2.09 mg/dL High 0.80-1.30 [facility] Comment on above: Order Comment: [facility] Services has implemented the eGFR calculation approach that does not have a coefficient for race that conforms to the NKF-ASN Task Force Recommendations. Performed By: #### 4 6141 #### LAB [address] [place] [address] Moody Martinez M.D. [id number] EGFR 31 mL/min/1.73 m2 Low >=60 [facility] Comment on above: Order Comment: [facility] Services has implemented the eGFR calculation approach that does not have a coefficient for race that conforms to the NKF-ASN Task Force Recommendations. Result Comment: Albin mated GFR was calculated using the 2020 CKD-EPI creatinine equation. Performed By: #### 4 6198 #### LAB [address] [place] [address] Moody Martinez M.D. [id number] Glucose [Mass/Vol] 240 mg/dL High 65-99 [facility] Comment on above: Order Comment: [facility] has implemented the eGFR calculation approach that does not have a coefficient for race that conforms to the NKF-ASN Task Force Recommendations. Performed By: #### 4 6103 #### LAB [address] [address] Moody Martinez M.D. [id number] HCO3 (Bld) [Moles/Vol] 26 mmol/L Normal 21-32 [facility] Comment on above: Order Comment: [facility] has implemented the eGFR calculation approach that does not have a coefficient for race that conforms to the NKF-ASN Task Force Recommendations. Performed By: #### 4 6105 #### LAB [address] [address] Moody Martinez M.D. [id number] Potassium [Moles/Vol] 3.6 mmol/L Normal 3.5-5.1 [facility] Comment on above: Order Comment: [facility] Services has implemented the eGFR calculation approach that does not have a coefficient for race that conforms to the NKF-ASN Task Force Recommendations. Performed By: #### 4 6112 #### LAB [address] [address] Moody Martinez M.D. [id number] Sodium [Moles/Vol] 140 mmol/L Normal 135-145 [facility] Comment on above: Order Comment: [facility] Services has implemented the eGFR calculation approach that does not have a coefficient for race that conforms to the NKF-ASN Task Force Recommendations. Performed By: #### 4 6124 #### LAB [address] [address] Moody Martinez M.D. [id number] Urea nitrogen [Mass/Vol] 49 mg/dL High 8-25 [facility] Comment on above: Order Comment: [facility] Services has implemented the eGFR calculation approach that does not have a coefficient for race that conforms to the NKF-ASN Task Force Recommendations. Performed By: #### 4 6124 #### LAB [address] [address] Moody Martinez M.D. [id number] Urea nitrogen/Creatinine [Mass ratio] 23.4 mg/mg High 10.0-20.0 [facility] Comment on above: Order Comment: [facility] Services has implemented the eGFR calculation approach that does not have a coefficient for race that conforms to the NKF-ASN Task Force Recommendations. Performed By: #### 4 6124 #### LAB [address] [address] Moody Martinez M.D. [id number] CBCon 03-03-2025 AUTO NRBC 0.0 % Normal [facility] Comment on above: Performed By: #### 4 [id number] #### LAB [address] [id number] Moody Martinez M.D. [id number] AUTO NRBC ABS COUNT 0.00 K/mcL Normal 0.00-0.00 [facility] Comment on above: Performed By: #### 4 [id number] #### LAB [address] [address] Moody Martinez M.D. [id number] Erythrocyte distribution width (RBC) [Ratio] 13.5 % Normal 11.6-14.8 [facility] Comment on above: Performed By: #### 4 5218 #### LAB [address] [address] Moody Martinez M.D. [id number] Hematocrit (Bld) [Volume fraction] 28.5 % Low 41.0-53.0 [facility] Comment on above: Performed By: #### 4 5218 #### LAB [address] [address] Moody Martinez M.D. [id number] Hemoglobin (Bld) [Mass/Vol] 9.3 g/dL Low 13.5-17.5 [facility] Comment on above: Performed By: #### 4 [id number] #### LAB [address] [address] Moody Martinez M.D. [id number] MCH (RBC) [Entitic mass] 30.8 pg Normal 26.0-34.0 [facility] Comment on above: Performed By: #### 4 [id number] #### LAB [address] [address] Moody Martinez M.D. [id number] MCV (RBC) [Entitic vol] 94.4 fL Normal 80.0-100.0 [facility] Comment on above: Performed By: #### 4 5218 #### LAB [address] [address] Moody Martinez M.D. [id number] MEAN CORPUSCULAR HEMOGLOBIN CONC 32.6 g/dL Normal 31.0-37.0 [facility] Comment on above: Performed By: #### 4 [id number] #### LAB [address] [address] Moody Martinez M.D. [id number] Platelet mean volume (Bld) [Entitic vol] 11.8 fL Normal 9.4-12.4 [facility] Comment on above: Performed By: #### 4 5218 #### LAB [address] [address] Moody Martinez M.D. [id number] Platelets (Bld) [#/Vol] 159 10*3/uL Normal 150-400 [facility] Comment on above: Performed By: #### 4 [id number] #### LAB [address] [address] Moody Martinez M.D. [id number] RBC (Bld) [#/Vol] 3.02 10*6/uL Low 4.50-5.90 [facility] Comment on above: Performed By: #### 4 5218 ####MH LAB [address] [address] Moody Martinez M.D. [id number] WBC (Bld) [#/Vol] 10.19 10*3/uL Normal 4.50-11.[address] [facility] Comment on above: Performed By: #### 4 [id number] #### LAB [address] [address] Moody Martinez M.D. [id number] MAGNESIUM LEVELon 03-03-2025 Magnesium [Mass/Vol] 2.3 mg/dL Normal 1.6-2.[address] [facility] Comment on above: Performed By: #### 4 6109 ####MH LAB [address] [address] Moody Martinez M.D. [id number] POC GLUCOSE [facility] 025 Glucose [Mass/Vol] 221 mg/dL High [address] [place] [address] Comment on above: Performed By: #### L [id number] #### MH LAB [address] [id number] Moody Martniez M.D. [id number] Glucose [Mass/Vol] 189 mg/dL High [address] [place] [address] Comment on above: Performed By: #### 4 6932 ####[facility] LAB [address] [address] Moody Martinez M.D. [id number] Glucose [Mass/Vol] 91 mg/dL Normal [address] [place] [address] Comment on above: Performed By: #### 4 6932 ####[facility] LAB [address] [address] Moody Martinez M.D. [id number] Glucose [Mass/Vol] 146 mg/dL High 65-99 [facility] Comment on above: Performed By: #### 4 6932 ####[facility] LAB [address] [address] Moody Martinez M.D. [id number] TROPONIN (ONCE)on 03-03-2025 BASELINE TROPONIN T NG/L 1524 ng/L Off scale high <=22 [facility] Comment on above: Performed By: #### 4 6932 #### MH LAB [address] [address] Moody Martinez M.D. [id number] TROPONIN T INTERPRETATION Possible acute cardiac injury. Normal [facility] Comment on above: Performed By: #### 4 6932 #### LAB [address] [address] Moody Martinez M.D. [id number] APTT HEPARIN COVERAGEon aPTT Coag (Bld) [Time] 97 s High 23-34 [facility] Comment on above: Order Comment: Thera peutic range for APTT's is 68 - 104 seconds Performed By: #### 4 6848 ####MH LAB [address] [address] Moody Martinez M.D. [id number] BASIC METABOLIC PANELon Anion gap [Moles/Vol] 17 mmol/L Normal 10-20 [facility] Comment on above: Order Comment: [facility] Services has implemented the eGFR calculation approach that does not have a coefficient for race that conforms to the NKF-ASN Task Force Recommendations. Performed By: #### 4 6124 ####[facility] LAB [address] [address] Moody Martinez M.D. [id number] Calcium [Mass/Vol] 8.7 mg/dL Normal 8.4-10.2 [facility] Comment on above: Order Comment: [facility] Services has implemented the eGFR calculation approach that does not have a coefficient for race that conforms to the NKF-ASN Task Force Recommendations. Performed By: #### 4 6124 #### LAB [address] [id number] Moody Martinez M.D. [id number] Chloride [Moles/Vol] 101 mmol/L Normal 98-[address] [facility] Comment on above: Order Comment: [facility] has implemented the eGFR calculation approach that does not have a coefficient for race that conforms to the NKF-ASN Task Force Recommendations. Performed By: #### 4 6124 #### LAB [address] [address] Moody Martinez M.D. [id number] Creatinine [Mass/Vol] 2.16 mg/dL High 0.80-1.30 [facility] Comment on above: Order Comment: [facility] has implemented the eGFR calculation approach that does not have a coefficient for race that conforms to the NKF-ASN Task Force Recommendations. Performed By: #### 4 6124 #### LAB [address] [address] Moody Martinez M.D. [id number] EGFR 30 mL/min/1.73 m2 Low >=60 [facility] Comment on above: Order Comment: [facility] has implemented the eGFR calculation approach that does not have a coefficient for race that conforms to the NKF-ASN Task Force Recommendations. Result Comment: Albin mated GFR was calculated using the 2020 CKD-EPI creatinine equation. Performed By: #### 4 6124 ####[facility] LAB [address] [place], [place] [address] Moody Martinez M.D. [id number] Glucose [Mass/Vol] 170 mg/dL High 65-99 [facility] Comment on above: Order Comment: [facility] has implemented the eGFR calculation approach that does not have a coefficient for race that conforms to the NKF-ASN Task Force Recommendations. Performed By: #### 4 6124 #### LAB [address] [id number] Moody Martinez M.D. [id number] HCO3 (Bld) [Moles/Vol] 25 mmol/L Normal 21-32 [facility] Comment on above: Order Comment: [facility] has implemented the eGFR calculation approach that does not have a coefficient for race that conforms to the NKF-ASN Task Force Recommendations. Performed By: #### 4 6124 #### LAB [address] [address] Moody Martinez M.D. [id number] Potassium [Moles/Vol] 3.7 mmol/L Normal 3.5-5.1 [facility] Comment on above: Order Comment: [facility] has implemented the eGFR calculation approach that does not have a coefficient for race that conforms to the NKF-ASN Task Force Recommendations. Performed By: #### 4 6124 #### LAB [address] [address] Moody Martinez M.D. [id number] Sodium [Moles/Vol] 139 mmol/L Normal 135-145 [facility] Comment on above: Order Comment: [facility] has implemented the eGFR calculation approach that does not have a coefficient for race that conforms to the NKF-ASN Task Force Recommendations. Performed By: #### 4 6124 #### LAB [address] [address] Moody Martinez M.D. [id number] Urea nitrogen [Mass/Vol] 44 mg/dL High 8-25 [facility] Comment on above: Order Comment: [facility] has implemented the eGFR calculation approach that does not have a coefficient for race that conforms to the NKF-ASN Task Force Recommendations. Performed By: #### 4 6191 #### LAB [address] [address] Moody Martinez M.D. [id number] Urea nitrogen/Creatinine [Mass ratio] 20.4 mg/mg High 10.0-20.0 [facility] Comment on above: Order Comment: [facility] has implemented the eGFR calculation approach that does not have a coefficient for race that conforms to the NKF-ASN Task Force Recommendations. Performed By: #### 4 6124 #### LAB [address] [address] Moody Martinez M.D. [id number] CBCon 03-02-2025 AUTO NRBC 0.0 % Normal [facility] Comment on above: Order Comment: Injur y/Trauma or Illness?:Illness/Other How long have you had these symptoms (acute/chronic)?:Acute Reason for exam?:sob History of cancer?:. Surgeries, chemotherapy, or radiation?:cardiac catheterization Type of Exam?:Initial Additional signs and symptoms?:n Performed By: #### 4 5218 #### LAB [address] [address] Moody Martinez M.D. [id number] AUTO NRBC ABS COUNT 0.00 K/mcL Normal 0.00-0.00 [facility] Comment on above: Order Comment: Injur y/Trauma or Illness?:Illness/Other How long have you had these symptoms (acute/chronic)?:Acute Reason for exam?:sob History of cancer?:. Surgeries, chemotherapy, or radiation?:cardiac catheterization Type of Exam?:Initial Additional signs and symptoms?:n Performed By: #### 4 5218 #### LAB [address] [address] Moody Martinez M.D. [id number] Erythrocyte distribution width (RBC) [Ratio] 13.4 % Normal 11.6-14.8 [facility] Comment on above: Order Comment: Injur y/Trauma or Illness?:Illness/Other How long have you had these symptoms (acute/chronic)?:Acute Reason for exam?:sob History of cancer?:. Surgeries, chemotherapy, or radiation?:cardiac catheterization Type of Exam?:Initial Additional signs and symptoms?:n Performed By: #### 4 5218 #### LAB [address] [address] Moody Martinez M.D. [id number] Hematocrit (Bld) [Volume fraction] 31.3 % Low 41.0-53.0 [facility] Comment on above: Order Comment: Injur y/Trauma or Illness?:Illness/Other How long have you had these symptoms (acute/chronic)?:Acute Reason for exam?:sob History of cancer?:. Surgeries, chemotherapy, or radiation?:cardiac catheterization Type of Exam?:Initial Additional signs and symptoms?:n Performed By: #### 4 5218 #### LAB [address] [address] Moody Martinez M.D. [id number] Hemoglobin (Bld) [Mass/Vol] 10.3 g/dL Low 13.5-17.5 [facility] Comment on above: Order Comment: Injur y/Trauma or Illness?:Illness/Other How long have you had these symptoms (acute/chronic)?:Acute Reason for exam?:sob History of cancer?:. Surgeries, chemotherapy, or radiation?:cardiac catheterization Type of Exam?:Initial Additional signs and symptoms?:n Performed By: #### 4 5218 #### LAB [address] [address] Moody Martinez M.D. [id number] MCH (RBC) [Entitic mass] 31.0 pg Normal 26.0-34.0 [facility] Comment on above: Order Comment: Injur y/Trauma or Illness?:Illness/Other How long have you had these symptoms (acute/chronic)?:Acute Reason for exam?:sob History of cancer?:. Surgeries, chemotherapy, or radiation?:cardiac catheterization Type of Exam?:Initial Additional signs and symptoms?:n Performed By: #### 4 5218 #### LAB [address] [address] Moody Martinez M.D. [id number] MCV (RBC) [Entitic vol] 94.3 fL Normal 80.0-100.0 [facility] Comment on above: Order Comment: Injur y/Trauma or Illness?:Illness/Other How long have you had these symptoms (acute/chronic)?:Acute Reason for exam?:sob History of cancer?:. Surgeries, chemotherapy, or radiation?:cardiac catheterization Type of Exam?:Initial Additional signs and symptoms?:n Performed By: #### 4 5218 #### LAB [address] [address] Moody Martinez M.D. [id number] MEAN CORPUSCULAR HEMOGLOBIN CONC 32.9 g/dL Normal 31.0-37.0 [facility] Comment on above: Order Comment: Injur y/Trauma or Illness?:Illness/Other How long have you had these symptoms (acute/chronic)?:Acute Reason for exam?:sob History of cancer?:. Surgeries, chemotherapy, or radiation?:cardiac catheterization Type of Exam?:Initial Additional signs and symptoms?:n Performed By: #### 4 5218 #### LAB [address] [address] Moody Martinez M.D. [id number] Platelet mean volume (Bld) [Entitic vol] 11.6 fL Normal 9.4-12.4 [facility] Comment on above: Order Comment: Injur y/Trauma or Illness?:Illness/Other How long have you had these symptoms (acute/chronic)?:Acute Reason for exam?:sob History of cancer?:. Surgeries, chemotherapy, or radiation?:cardiac catheterization Type of Exam?:Initial Additional signs and symptoms?:n Performed By: #### 4 5218 #### LAB [address] [address] Moody Martinez M.D. [id number] Platelets (Bld) [#/Vol] 176 10*3/uL Normal 150-400 [facility] Comment on above: Order Comment: Injur y/Trauma or Illness?:Illness/Other How long have you had these symptoms (acute/chronic)?:Acute Reason for exam?:sob History of cancer?:. Surgeries, chemotherapy, or radiation?:cardiac catheterization Type of Exam?:Initial Additional signs and symptoms?:n Performed By: #### 4 5218 #### LAB [address] [address] Moody Martinez M.D. [id number] RBC (Bld) [#/Vol] 3.32 10*6/uL Low 4.50-5.90 [facility] Comment on above: Order Comment: Injur y/Trauma or Illness?:Illness/Other How long have you had these symptoms (acute/chronic)?:Acute Reason for exam?:sob History of cancer?:. Surgeries, chemotherapy, or radiation?:cardiac catheterization Type of Exam?:Initial Additional signs and symptoms?:n Performed By: #### 4 5218 #### LAB [address] [address] Moody Martinez M.D. [id number] WBC (Bld) [#/Vol] 14.08 10*3/uL High 4.50-11.[address] [facility] Comment on above: Order Comment: Injur y/Trauma or Illness?:Illness/Other How long have you had these symptoms (acute/chronic)?:Acute Reason for exam?:sob History of cancer?:. Surgeries, chemotherapy, or radiation?:cardiac catheterization Type of Exam?:Initial Additional signs and symptoms?:n Performed By: #### 4 5218 #### LAB [address] [address] Moody Martinez M.D. [id number] AUTO NRBC 0.0 % Normal [facility] Comment on above: Performed By: #### 4 5218 #### LAB [address] [address] Moody Martinez M.D. [id number] AUTO NRBC ABS COUNT 0.00 K/mcL Normal 0.00-0.00 [facility] Comment on above: Performed By: #### 4 5218 #### LAB [address] [address] Moody Martinez M.D. [id number] Erythrocyte distribution width (RBC) [Ratio] 13.4 % Normal 11.6-14.8 [facility] Comment on above: Performed By: #### 4 5218 #### LAB [address] [address] Moody Martinez M.D. [id number] Hematocrit (Bld) [Volume fraction] 34.4 % Low 41.0-53.0 [facility] Comment on above: Performed By: #### 4 5218 #### LAB [address] [address] Moody Martinez M.D. [id number] Hemoglobin (Bld) [Mass/Vol] 11.2 g/dL Low 13.5-17.5 [facility] Comment on above: Performed By: #### 4 5218 #### LAB [address] [address] Moody Martinez M.D. [id number] MCH (RBC) [Entitic mass] 31.1 pg Normal 26.0-34.0 [facility] Comment on above: Performed By: #### 4 5218 #### LAB [address] [address] Moody Martinez M.D. [id number] MCV (RBC) [Entitic vol] 95.6 fL Normal 80.0-100.0 [facility] Comment on above: Performed By: #### 4 5218 ####[facility] LAB [address] [address] Moody Martinez M.D. [id number] MEAN CORPUSCULAR HEMOGLOBIN CONC 32.6 g/dL Normal 31.0-37.0 [facility] Comment on above: Performed By: #### 4 5218 #### LAB [address] [address] Moody Martinez M.D. [id number] Platelet mean volume (Bld) [Entitic vol] 11.4 fL Normal 9.4-12.4 [facility] Comment on above: Performed By: #### 4 5218 #### LAB [address] [address] Moody Martinez M.D. [id number] Platelets (Bld) [#/Vol] 189 10*3/uL Normal 150-400 [facility] Comment on above: Performed By: #### 4 5218 #### LAB [address] [address] Moody Martinez M.D. [id number] RBC (Bld) [#/Vol] 3.60 10*6/uL Low 4.50-5.90 [facility] Comment on above: Performed By: #### 4 5218 #### LAB [address] [place], [place] [address] Moody Martinez M.D. [id number] WBC (Bld) [#/Vol] 11.96 10*3/uL High 4.50-11.[address] [facility] Comment on above: Performed By: #### 4 5218 ####MH LAB [address] [place], [place] [address] Moody Martinez M.D. [id number] CONSULTon 03-02-2025 CONSULT General Cardiology Inpatient Consult Heart & Vascular [facility] 03/02/2025 Diogenes Garay MD [facility] Patient: Enoc Armando Date of : 1945 [...] plan for further details. Diogenes Garay MD [facility] Non-Invasive Cardiology [facility] Heart and Vascular Subjective Reason for [...] Skin: Negative. (more content not included)... Normal [facility] ECHOCARDIOGRAM COMPLETEon ECHOCARDIOGRAM COMPLETE Patient Info Name: ENOC ARMANDO Age: 79 years : 1945 Gender: Male Ht: 170 cm Wt: 64 kg BSA: 1.74 m2 HR: 81 bpm BP: 112 / 57 mmHg Heart Rhythm: Sinus Rhythm Technical Quality: Good Exam Date: 03/02/2025 2:27 PM Patient Status: Inpatient Maintenance Groundman: Mikel Olvera RCDS Exam Type: ECHOCARDIOGRAM COMPLETE Study Info Indications - Chest pain R07.9 - Chest pain, unspecified Referring Physician: TANISHA Alves; [id number] BMI: 22.08 kg/m2 Summary 1. Left ventricular [...] Factors Hypertension: Yes Dyslipidemia: Yes Myocardial Infarction (ND): No Congestive Heart Failure (CHF): Hx CHF [...] mmHg MV VTI 35 cm MV Decel [place] 390 cm/s2 MV PHT 75 ms MV [...] Annular TDI (more content not included)... Normal [facility] MAGNESIUM LEVELon 03-02-2025 Magnesium [Mass/Vol] 2.2 mg/dL Normal 1.6-2.[address] [facility] Comment on above: Performed By: #### 4 6109 #### LAB [address] [place] [address] Moody Martinez M.D. [id number] NT PRO BNPon 03-02-2025 Natriuretic peptide B (Bld) [Mass/Vol] 86698 pg/mL High 0-300 [facility] Comment on above: Order Comment: Pride Study Cut-offsRule In:< /= 50 Years >450 pg/mL51 Years - 75 Years >900 pg/mL76 Years - 99 Years >1800 pg/mLRule Out:All patients <300 pg/mL Performed By: #### 4 7395 #### LAB [address] [place], [place] [address] Moody Martinez M.D. [id number] POC GLUCOSE [facility] Glucose [Mass/Vol] 287 mg/dL [address] Comment on above: Performed By: #### 4 6932 #### LAB [address] [address] Moody Martinez M.D. [id number] Glucose [Mass/Vol] 137 mg/dL [address] Comment on above: Performed By: #### 4 6932 #### LAB [address] [address] Moody Martinez M.D. [id number] Glucose [Mass/Vol] 252 mg/dL [address] Comment on above: Performed By: #### 4 6932 #### LAB [address] [address] Moody Martinez M.D. [id number] Glucose [Mass/Vol] 332 mg/dL [address] Comment on above: Performed By: #### 4 6932 #### LAB [address] [address] Moody Martinez M.D. [id number] Glucose [Mass/Vol] 286 mg/dL [address] Comment on above: Performed By: #### 4 6932 #### LAB [address] [address] Moody Martinez M.D. [id number] Glucose [Mass/Vol] 168 mg/dL [address] Comment on above: Performed By: #### L [id number] #### MH LAB [address] [id number] Moody Martinez M.D. [id number] Glucose [Mass/Vol] 186 mg/dL High 65-99 [facility] Comment on above: Performed By: #### 4 6932 #### LAB [address] [address] Moody Martinez M.D. [id number] POTASSIUM LEVELon 03-02-2025 Potassium [Moles/Vol] 3.9 mmol/L Normal 3.5-5.1 [facility] Comment on above: Performed By: #### 4 6351 #### LAB [address] [address] Moody Martinez M.D. [id number] TROPONIN X 2 (NOW AND REPEAT IN 2 HOURS)on 03-02-2025 TROPONIN T DELTA CHANGE INTERPRETATION Delta troponin requires at least 2 hours between collections. [facility] Comment on above: Performed By: #### 4 6608 #### LAB [address] [address] Moody Martinez M.D. [id number] TROPONIN T NG/L 1447 ng/L Off scale high <=22 [facility] Comment on above: Performed By: #### 4 6608 #### LAB [address] [address] Moody Martinez M.D. [id number] BASELINE TROPONIN T NG/L 1309 ng/L Off scale high <=22 [facility] Comment on above: Performed By: #### 4 6608 #### LAB [address] [address] Moody Martinez M.D. [id number] TROPONIN T INTERPRETATION Possible acute cardiac injury. [facility] Comment on above: Performed By: #### 4 6608 #### LAB [address] [address] Moody Martinez M.D. [id number] XR CHEST PA/APon 03-02-2025 XR CHEST PA/AP [...] (HCC) J18.9 Pneumonia E11.10 DKA (diabetic ketoacidosis) ([facility]) COMPARISON: 02/28/2025. TECHNIQUE: Single portable semierect view. FINDINGS: Cardiac silhouette and mediastinal contours are stable. No pneumothorax or large pleural effusion. There is development of yesccdgu-ji-pelqbi bilateral mixed interstitial and alveolar opacities in both lungs consistent with pulmonary edema; although, underlying pneumonia/aspiration is not excluded. IMPRESSION: Development of hhjefpng-ua-bwolsa mixed interstitial and alveolar opacities in both lungs consistent with pulmonary edema. Underlying pneumonia/aspiration not excluded. No pneumothorax or large pleural effusion. JAR/trw Workstation ID: [id number] Dictated by: KAHLIL VARGHESE on WedMarch 02, 2025 2:36:56 PM EDT Transcribed by: AFUA RALPH on WedMarch 02, 2025 3:15:52 PM EDT Finalized by: KAHLIL VARGHESE on WedMarch 02, 2025 3:23:59 PM EDT [facility] Comment on above: Order Comment: Injur y/Trauma or Illness?:Illness/OtherHow long have you had these symptoms (acute/chronic)?:AcuteReason for exam?:SOBHistory of cancer?:.Surgeries, chemotherapy, or radiation?:cardiac catheterizationType of Exam?:InitialAdditional signs and symptoms?:. BASIC METABOLIC PANELon 05-0 Anion gap [Moles/Vol] 15 mmol/L Normal 10-20 [facility] Comment on above: Order Comment: [facility] Services has implemented the eGFR calculation approach that does not have a coefficient for race that conforms to the NKF-ASN Task Force Recommendations. Performed By: #### 4 6124 ####[facility] [address] [place], [place] [address] Moody Martinez M.D. [id number] Calcium [Mass/Vol] 8.7 mg/dL Normal 8.4-10.2 [facility] Comment on above: Order Comment: [facility] has implemented the eGFR calculation approach that does not have a coefficient for race that conforms to the NKF-ASN Task Force Recommendations. Performed By: #### 4 6124 #### LAB [address] [place], [place] [address] Moody Martinez M.D. [id number] Chloride [Moles/Vol] 104 mmol/L Normal 98-[address] [facility] Comment on above: Order Comment: [facility] has implemented the eGFR calculation approach that does not have a coefficient for race that conforms to the NKF-ASN Task Force Recommendations. Performed By: #### 4 6124 #### LAB [address] [place] [id number] Moody Martinez M.D. [id number] Creatinine [Mass/Vol] 2.49 mg/dL High 0.80-1.30 [facility] Comment on above: Order Comment: [facility] has implemented the eGFR calculation approach that does not have a coefficient for race that conforms to the NKF-ASN Task Force Recommendations. Performed By: #### 4 6124 #### LAB [address] [place] [id number] Moody Martinez M.D. [id number] EGFR 25 mL/min/1.73 m2 Low >=60 [facility] Comment on above: Order Comment: [facility] has implemented the eGFR calculation approach that does not have a coefficient for race that conforms to the NKF-ASN Task Force Recommendations. Result Comment: Albin mated GFR was calculated using the 2020 CKD-EPI creatinine equation. Performed By: #### 4 6124 #### LAB [address] [place] [id number] Moody Martinez M.D. [id number] Glucose [Mass/Vol] 86 mg/dL Normal 65-99 [facility] Comment on above: Order Comment: [facility] has implemented the eGFR calculation approach that does not have a coefficient for race that conforms to the NKF-ASN Task Force Recommendations. Performed By: #### 4 6124 #### LAB [address] [place] [id number] Moody Martinez M.D. [id number] HCO3 (Bld) [Moles/Vol] 26 mmol/L Normal 21-32 [facility] Comment on above: Order Comment: [facility] has implemented the eGFR calculation approach that does not have a coefficient for race that conforms to the NKF-ASN Task Force Recommendations. Performed By: #### 4 6124 ####[facility] [address] [place], [place] [address] Moody Martinez M.D. [id number] Potassium [Moles/Vol] 4.2 mmol/L Normal 3.5-5.1 [facility] Comment on above: Order Comment: [facility] has implemented the eGFR calculation approach that does not have a coefficient for race that conforms to the NKF-ASN Task Force Recommendations. Performed By: #### 4 6124 #### LAB [address] [place] [address] Moody Martniez M.D. [id number] Sodium [Moles/Vol] 141 mmol/L Normal 135-145 [facility] Comment on above: Order Comment: [facility] has implemented the eGFR calculation approach that does not have a coefficient for race that conforms to the NKF-ASN Task Force Recommendations. Performed By: #### 4 6124 ####[facility] [address] [place] [address] Moody Martinez M.D. [id number] Urea nitrogen [Mass/Vol] 47 mg/dL High 8-25 [facility] Comment on above: Order Comment: [facility] has implemented the eGFR calculation approach that does not have a coefficient for race that conforms to the NKF-ASN Task Force Recommendations. Performed By: #### 4 6124 ####[facility] [address] [place] [address] Moody Martinez M.D. [id number] Urea nitrogen/Creatinine [Mass ratio] 18.9 mg/mg Normal 10.0-20.0 [facility] Comment on above: Order Comment: [facility] has implemented the eGFR calculation approach that does not have a coefficient for race that conforms to the NKF-ASN Task Force Recommendations. Performed By: #### 4 6124 #### LAB [address] [place] [address] Moody Martinez M.D. [id number] CBCon 03-01-2025 AUTO NRBC 0.0 % Normal [facility] Comment on above: Performed By: #### 4 5218 ####[facility] [address] [place] [address] Moody Martinez M.D. [id number] AUTO NRBC ABS COUNT 0.00 K/mcL Normal 0.00-0.00 [facility] Comment on above: Performed By: #### 4 [id number] #### LAB [address] [place] [address] Moody Martinez M.D. [id number] Erythrocyte distribution width (RBC) [Ratio] 13.7 % Normal 11.6-14.8 [facility] Comment on above: Performed By: #### 4 5218 #### LAB [address] [place] [address] Moody Martinez M.D. [id number] Hematocrit (Bld) [Volume fraction] 29.8 % Low 41.0-53.0 [facility] Comment on above: Performed By: #### 4 5218 #### LAB [address] [place] [address] Moody Martinez M.D. [id number] Hemoglobin (Bld) [Mass/Vol] 9.9 g/dL Low 13.5-17.5 [facility] Comment on above: Performed By: #### 4 5218 #### LAB [address] [place] [address] Moody Martinez M.D. [id number] MCH (RBC) [Entitic mass] 31.0 pg Normal 26.0-34.0 [facility] Comment on above: Performed By: #### 4 5218 #### LAB [address] [place] [id number] Moody Martinez M.D. [id number] MCV (RBC) [Entitic vol] 93.4 fL Normal 80.0-100.0 [facility] Comment on above: Performed By: #### 4 5218 #### LAB [address] [place] [address] Moody Martinez M.D. [id number] MEAN CORPUSCULAR HEMOGLOBIN CONC 33.2 g/dL Normal 31.0-37.0 [facility] Comment on above: Performed By: #### 4 5218 #### LAB [address] [place] [address] Moody Martinez M.D. [id number] Platelet mean volume (Bld) [Entitic vol] 10.9 fL Normal 9.4-12.4 [facility] Comment on above: Performed By: #### 4 5218 #### LAB [address] [place] [address] Moody Martinez M.D. [id number] Platelets (Bld) [#/Vol] 186 10*3/uL Normal 150-400 [facility] Comment on above: Performed By: #### 4 5218 #### LAB [address] [place] [address] Moody Martinez M.D. [id number] RBC (Bld) [#/Vol] 3.19 10*6/uL Low 4.50-5.90 [facility] Comment on above: Performed By: #### 4 5218 #### LAB [address] [place] [address] Moody Martinez M.D. [id number] WBC (Bld) [#/Vol] 15.37 10*3/uL High 4.50-11.[address] [facility] Comment on above: Performed By: #### 4 5218 #### LAB [address] [place] [address] Moody Martinez M.D. [id number] MAGNESIUM LEVELon 03-01-2025 Magnesium [Mass/Vol] 2.1 mg/dL Normal 1.6-2.[address] [facility] Comment on above: Performed By: #### 4 6109 ####[facility] [address] [place] [address] Moody Martinez M.D. [id number] PHOSPHORUSon 03-01-2025 Phosphate [Mass/Vol] 4.3 mg/dL High 2.3-3.[address] [facility] Comment on above: Performed By: #### 4 6299 ####[facility] [address] [place] [address] Moody Martinez M.D. [id number] POC GLUCOSE - [facility] 025 Glucose [Mass/Vol] 249 mg/dL High [address] [place] [address] Comment on above: Performed By: #### 4 6932 ####[facility] [address] [place] [address] Moody Martinez M.D. [id number] Glucose [Mass/Vol] 79 mg/dL Normal [address] [place] [address] Comment on above: Performed By: #### 4 6932 ####[facility] [address] [place] [address] Moody Martinez M.D. [id number] Glucose [Mass/Vol] 237 mg/dL High [address] [place] [address] Comment on above: Performed By: #### 4 6932 ####[facility] [address] [place] [address] Moody Martinez M.D. [id number] Glucose [Mass/Vol] 85 mg/dL Normal [address] [place] [address] Comment on above: Performed By: #### 4 6949 ####[facility] [address] [place] [address] Moody Martinez M.D. [id number] Glucose [Mass/Vol] 167 mg/dL High [address] [place] [address] Comment on above: Performed By: #### 4 6902 ####[facility] [address] [place] [address] Moody Martinez M.D. [id number] BASIC METABOLIC PANELon - Anion gap [Moles/Vol] 16 mmol/L Normal 10-20 [facility] Comment on above: Order Comment: [facility] has implemented the eGFR calculation approach that does not have a coefficient for race that conforms to the NKF-ASN Task Force Recommendations. Performed By: #### 4 4014 #### LAB [address] [place], [place] [address] Moody Martinez M.D. [id number] Calcium [Mass/Vol] 9.5 mg/dL Normal 8.4-10.2 [facility] Comment on above: Order Comment: [facility] has implemented the eGFR calculation approach that does not have a coefficient for race that conforms to the NKF-ASN Task Force Recommendations. Performed By: #### 4 4014 #### LAB [address] [place], [place] [address] Moody Martinez M.D. [id number] Chloride [Moles/Vol] 103 mmol/L Normal 98-[address] [facility] Comment on above: Order Comment: [facility] has implemented the eGFR calculation approach that does not have a coefficient for race that conforms to the NKF-ASN Task Force Recommendations. Performed By: #### 4 4014 #### LAB [address] [place] [address] Moody Martinez M.D. [id number] Creatinine [Mass/Vol] 2.61 mg/dL High 0.80-1.30 [facility] Comment on above: Order Comment: [facility] has implemented the eGFR calculation approach that does not have a coefficient for race that conforms to the NKF-ASN Task Force Recommendations. Performed By: #### 4 4014 #### LAB [address] [place] [address] Moody Martinez M.D. [id number] EGFR 24 mL/min/1.73 m2 Low >=60 [facility] Comment on above: Order Comment: [facility] has implemented the eGFR calculation approach that does not have a coefficient for race that conforms to the NKF-ASN Task Force Recommendations. Result Comment: Albin mated GFR was calculated using the 2020 CKD-EPI creatinine equation. Performed By: #### 4 4014 #### [facility] [address] [place] [address] Moody Martinez M.D. [id number] Glucose [Mass/Vol] 138 mg/dL High 65-99 [facility] Comment on above: Order Comment: [facility] has implemented the eGFR calculation approach that does not have a coefficient for race that conforms to the NKF-ASN Task Force Recommendations. Performed By: #### 4 4014 #### [facility] [address] [place] [address] Moody Martinez M.D. [id number] HCO3 (Bld) [Moles/Vol] 23 mmol/L Normal 21-32 [facility] Comment on above: Order Comment: [facility] has implemented the eGFR calculation approach that does not have a coefficient for race that conforms to the NKF-ASN Task Force Recommendations. Performed By: #### 4 4014 #### LAB [address] [place] [address] oMody Martinez M.D. [id number] Potassium [Moles/Vol] 4.0 mmol/L Normal 3.5-5.1 [facility] Comment on above: Order Comment: [facility] has implemented the eGFR calculation approach that does not have a coefficient for race that conforms to the NKF-ASN Task Force Recommendations. Performed By: #### 4 4014 #### LAB [address] [place] [address] Moody Martinez M.D. [id number] Sodium [Moles/Vol] 138 mmol/L Normal 135-145 [facility] Comment on above: Order Comment: [facility] has implemented the eGFR calculation approach that does not have a coefficient for race that conforms to the NKF-ASN Task Force Recommendations. Performed By: #### 4 4014 #### [facility] [address] [place] [address] Moody Martinez M.D. [id number] Urea nitrogen [Mass/Vol] 50 mg/dL High 8-25 [facility] Comment on above: Order Comment: [facility] has implemented the eGFR calculation approach that does not have a coefficient for race that conforms to the NKF-ASN Task Force Recommendations. Performed By: #### 4 4014 #### LAB [address] [place] [id number] Moody Martinez M.D. [id number] Urea nitrogen/Creatinine [Mass ratio] 19.2 mg/mg Normal 10.0-20.0 [facility] Comment on above: Order Comment: [facility] has implemented the eGFR calculation approach that does not have a coefficient for race that conforms to the NKF-ASN Task Force Recommendations. Performed By: #### 4 4014 #### LAB [address] [place] [address] Moody Martinez M.D. [id number] Anion gap [Moles/Vol] 22 mmol/L High 10-20 [facility] Comment on above: Order Comment: Injur y/Trauma or Illness?:Illness/Other How long have you had these symptoms (acute/chronic)?:Acute Reason for exam?:cross clamp of aorta for CPB Type of Exam?:Initial Additional signs and symptoms?:cp Performed By: #### 4 6124 #### LAB [address] [place] [id number] Moody Martinez M.D. [id number] Calcium [Mass/Vol] 9.6 mg/dL Normal 8.4-10.2 [facility] Comment on above: Order Comment: Injur y/Trauma or Illness?:Illness/Other How long have you had these symptoms (acute/chronic)?:Acute Reason for exam?:cross clamp of aorta for CPB Type of Exam?:Initial Additional signs and symptoms?:cp Performed By: #### 4 6113 #### LAB [address] [place] [id number] Moody Martinez M.D. [id number] Chloride [Moles/Vol] 100 mmol/L Normal 98-[address] [facility] Comment on above: Order Comment: Injur y/Trauma or Illness?:Illness/Other How long have you had these symptoms (acute/chronic)?:Acute Reason for exam?:cross clamp of aorta for CPB Type of Exam?:Initial Additional signs and symptoms?:cp Performed By: #### 4 61 #### LAB [address] [place] [address] Moody Martinez M.D. [id number] Creatinine [Mass/Vol] 2.69 mg/dL High 0.80-1.30 [facility] Comment on above: Order Comment: Injur y/Trauma or Illness?:Illness/Other How long have you had these symptoms (acute/chronic)?:Acute Reason for exam?:cross clamp of aorta for CPB Type of Exam?:Initial Additional signs and symptoms?:cp Performed By: #### 4 6134 #### LAB [address] [place] [address] Moody Martinez M.D. [id number] EGFR 23 mL/min/1.73 m2 Low >=60 [facility] Comment on above: Order Comment: Injur y/Trauma or Illness?:Illness/Other How long have you had these symptoms (acute/chronic)?:Acute Reason for exam?:cross clamp of aorta for CPB Type of Exam?:Initial Additional signs and symptoms?:cp Result Comment: Albin mated GFR was calculated using the 2020 CKD-EPI creatinine equation. Performed By: #### 4 6160 #### LAB [address] [place] [address] Moody Martinez M.D. [id number] Glucose [Mass/Vol] 426 mg/dL Off scale high 65-99 [facility] Comment on above: Order Comment: Injur y/Trauma or Illness?:Illness/Other How long have you had these symptoms (acute/chronic)?:Acute Reason for exam?:cross clamp of aorta for CPB Type of Exam?:Initial Additional signs and symptoms?:cp Performed By: #### 4 6130 #### LAB [address] [place] [address] Moody Martinez M.D. [id number] HCO3 (Bld) [Moles/Vol] 19 mmol/L Low 21-32 [facility] Comment on above: Order Comment: Injur y/Trauma or Illness?:Illness/Other How long have you had these symptoms (acute/chronic)?:Acute Reason for exam?:cross clamp of aorta for CPB Type of Exam?:Initial Additional signs and symptoms?:cp Performed By: #### 4 6124 #### LAB [address] [place] [address] Moody Martinez M.D. [id number] Potassium [Moles/Vol] 4.0 mmol/L Normal 3.5-5.1 [facility] Comment on above: Order Comment: Injur y/Trauma or Illness?:Illness/Other How long have you had these symptoms (acute/chronic)?:Acute Reason for exam?:cross clamp of aorta for CPB Type of Exam?:Initial Additional signs and symptoms?:cp Performed By: #### 4 6124 #### LAB [address] [place] [address] Moody Martinez M.D. [id number] Sodium [Moles/Vol] 137 mmol/L Normal 135-145 [facility] Comment on above: Order Comment: Injur y/Trauma or Illness?:Illness/Other How long have you had these symptoms (acute/chronic)?:Acute Reason for exam?:cross clamp of aorta for CPB Type of Exam?:Initial Additional signs and symptoms?:cp Performed By: #### 4 6124 #### LAB [address] [place] [address] Moody Martinez M.D. [id number] Urea nitrogen [Mass/Vol] 51 mg/dL High 8- [facility] Comment on above: Order Comment: Injur y/Trauma or Illness?:Illness/Other How long have you had these symptoms (acute/chronic)?:Acute Reason for exam?:cross clamp of aorta for CPB Type of Exam?:Initial Additional signs and symptoms?:cp Performed By: #### 4 6108 #### LAB [address] [place] [address] Moody Martinez M.D. [id number] Urea nitrogen/Creatinine [Mass ratio] 19.0 mg/mg Normal 10.0-20.0 [facility] Comment on above: Order Comment: Injur y/Trauma or Illness?:Illness/Other How long have you had these symptoms (acute/chronic)?:Acute Reason for exam?:cross clamp of aorta for CPB Type of Exam?:Initial Additional signs and symptoms?:cp Performed By: #### 4 6177 #### LAB [address] [place] [address] Moody Martinez M.D. [id number] Anion gap [Moles/Vol] 27 mmol/L High 10-20 [facility] Comment on above: Order Comment: [facility] has implemented the eGFR calculation approach that does not have a coefficient for race that conforms to the NKF-ASN Task Force Recommendations. Performed By: #### 4 6124 #### LAB [address] [place] [address] Moody Martinez M.D. [id number] Calcium [Mass/Vol] 9.6 mg/dL Normal 8.4-10.2 [facility] Comment on above: Order Comment: [facility] has implemented the eGFR calculation approach that does not have a coefficient for race that conforms to the NKF-ASN Task Force Recommendations. Performed By: #### 4 6124 #### LAB [address] [place] [address] Moody Martinez M.D. [id number] Chloride [Moles/Vol] 97 mmol/L Low 98-[address] [facility] Comment on above: Order Comment: [facility] has implemented the eGFR calculation approach that does not have a coefficient for race that conforms to the NKF-ASN Task Force Recommendations. Performed By: #### 4 6124 #### LAB [address] [place] [address] Moody Martinez M.D. [id number] Creatinine [Mass/Vol] 2.72 mg/dL High 0.80-1.30 [facility] Comment on above: Order Comment: [facility] has implemented the eGFR calculation approach that does not have a coefficient for race that conforms to the NKF-ASN Task Force Recommendations. Performed By: #### 4 6147 #### LAB [address] [place] [address] Moody Martinez M.D. [id number] EGFR 23 mL/min/1.73 m2 Low >=60 [facility] Comment on above: Order Comment: [facility] has implemented the eGFR calculation approach that does not have a coefficient for race that conforms to the NKF-ASN Task Force Recommendations. Result Comment: Albin mated GFR was calculated using the 2020 CKD-EPI creatinine equation. Performed By: #### 4 6124 ####[facility] [address] [place] [address] Moody Martinez M.D. [id number] Glucose [Mass/Vol] 529 mg/dL Off scale high 65-99 [facility] Comment on above: Order Comment: [facility] has implemented the eGFR calculation approach that does not have a coefficient for race that conforms to the NKF-ASN Task Force Recommendations. Performed By: #### 4 6124 ####[facility] [address] [place] [address] Moody Martinez M.D. [id number] HCO3 (Bld) [Moles/Vol] 17 mmol/L Low 21-32 [facility] Comment on above: Order Comment: [facility] has implemented the eGFR calculation approach that does not have a coefficient for race that conforms to the NKF-ASN Task Force Recommendations. Performed By: #### 4 6124 #### LAB [address] [place] [address] Moody Martinez M.D. [id number] Potassium [Moles/Vol] 4.5 mmol/L Normal 3.5-5.1 [facility] Comment on above: Order Comment: [facility] has implemented the eGFR calculation approach that does not have a coefficient for race that conforms to the NKF-ASN Task Force Recommendations. Performed By: #### 4 6124 ####[facility] [address] [place] [address] Moody Martinez M.D. [id number] Sodium [Moles/Vol] 136 mmol/L Normal 135-145 [facility] Comment on above: Order Comment: [facility] has implemented the eGFR calculation approach that does not have a coefficient for race that conforms to the NKF-ASN Task Force Recommendations. Performed By: #### 4 6124 #### LAB [address] [place], [place] [address] Moody Martinez M.D. [id number] Urea nitrogen [Mass/Vol] 52 mg/dL High 8- [facility] Comment on above: Order Comment: [facility] has implemented the eGFR calculation approach that does not have a coefficient for race that conforms to the NKF-ASN Task Force Recommendations. Performed By: #### 4 6124 #### LAB [address] [place] [address] Moody Martinez M.D. [id number] Urea nitrogen/Creatinine [Mass ratio] 19.1 mg/mg Normal 10.0-20.0 [facility] Comment on above: Order Comment: [facility] has implemented the eGFR calculation approach that does not have a coefficient for race that conforms to the NKF-ASN Task Force Recommendations. Performed By: #### 4 6124 #### LAB [address] [place] [address] Moody Martinez M.D. [id number] Anion gap [Moles/Vol] 28 mmol/L High 10-20 [facility] Comment on above: Order Comment: Injur y/Trauma or Illness?:Illness/Other How long have you had these symptoms (acute/chronic)?:Acute Reason for exam?:sob History of cancer?:. Surgeries, chemotherapy, or radiation?:cardiac catheterization Type of Exam?:Initial Additional signs and symptoms?:n Performed By: #### 4 6124 #### LAB [address] [place] [id number] Moody Martinez M.D. [id number] Calcium [Mass/Vol] 9.6 mg/dL Normal 8.4-10.2 [facility] Comment on above: Order Comment: Injur y/Trauma or Illness?:Illness/Other How long have you had these symptoms (acute/chronic)?:Acute Reason for exam?:sob History of cancer?:. Surgeries, chemotherapy, or radiation?:cardiac catheterization Type of Exam?:Initial Additional signs and symptoms?:n Performed By: #### 4 6162 #### LAB [address] [place] [address] Moody Martinez M.D. [id number] Chloride [Moles/Vol] 97 mmol/L Low 98-[address] [facility] Comment on above: Order Comment: Injur y/Trauma or Illness?:Illness/Other How long have you had these symptoms (acute/chronic)?:Acute Reason for exam?:sob History of cancer?:. Surgeries, chemotherapy, or radiation?:cardiac catheterization Type of Exam?:Initial Additional signs and symptoms?:n Performed By: #### 4 6124 #### LAB [address] [place] [address] Moody Martinez M.D. [id number] Creatinine [Mass/Vol] 2.66 mg/dL High 0.80-1.30 [facility] Comment on above: Order Comment: Injur y/Trauma or Illness?:Illness/Other How long have you had these symptoms (acute/chronic)?:Acute Reason for exam?:sob History of cancer?:. Surgeries, chemotherapy, or radiation?:cardiac catheterization Type of Exam?:Initial Additional signs and symptoms?:n Performed By: #### 4 6159 #### LAB [address] [place] [address] Moody Martinez M.D. [id number] EGFR 23 mL/min/1.73 m2 Low >=60 [facility] Comment on above: Order Comment: Injur y/Trauma or Illness?:Illness/Other How long have you had these symptoms (acute/chronic)?:Acute Reason for exam?:sob History of cancer?:. Surgeries, chemotherapy, or radiation?:cardiac catheterization Type of Exam?:Initial Additional signs and symptoms?:n Result Comment: Albin mated GFR was calculated using the 2020 CKD-EPI creatinine equation. Performed By: #### 4 6192 #### LAB [address] [place] [address] Moody Martinez M.D. [id number] Glucose [Mass/Vol] 514 mg/dL Off scale high 65-99 [facility] Comment on above: Order Comment: Injur y/Trauma or Illness?:Illness/Other How long have you had these symptoms (acute/chronic)?:Acute Reason for exam?:sob History of cancer?:. Surgeries, chemotherapy, or radiation?:cardiac catheterization Type of Exam?:Initial Additional signs and symptoms?:n Performed By: #### 4 6104 #### LAB [address] [address] Moody Martinez M.D. [id number] HCO3 (Bld) [Moles/Vol] 18 mmol/L Low 21-32 [facility] Comment on above: Order Comment: Injur y/Trauma or Illness?:Illness/Other How long have you had these symptoms (acute/chronic)?:Acute Reason for exam?:sob History of cancer?:. Surgeries, chemotherapy, or radiation?:cardiac catheterization Type of Exam?:Initial Additional signs and symptoms?:n Performed By: #### 4 6143 #### LAB [address] [address] Moody Martinez M.D. [id number] Potassium [Moles/Vol] 5.9 mmol/L High 3.5-5.1 [facility] Comment on above: Order Comment: Injur y/Trauma or Illness?:Illness/Other How long have you had these symptoms (acute/chronic)?:Acute Reason for exam?:sob History of cancer?:. Surgeries, chemotherapy, or radiation?:cardiac catheterization Type of Exam?:Initial Additional signs and symptoms?:n Result Comment: Slig htly Hemolyzed Performed By: #### 4 6173 #### LAB [address] [address] Moody Martinez M.D. [id number] Sodium [Moles/Vol] 137 mmol/L Normal 135-145 [facility] Comment on above: Order Comment: Injur y/Trauma or Illness?:Illness/Other How long have you had these symptoms (acute/chronic)?:Acute Reason for exam?:sob History of cancer?:. Surgeries, chemotherapy, or radiation?:cardiac catheterization Type of Exam?:Initial Additional signs and symptoms?:n Performed By: #### 4 6159 #### LAB [address] [address] Moody Martinez M.D. [id number] Urea nitrogen [Mass/Vol] 50 mg/dL High 8-25 [facility] Comment on above: Order Comment: Injur y/Trauma or Illness?:Illness/Other How long have you had these symptoms (acute/chronic)?:Acute Reason for exam?:sob History of cancer?:. Surgeries, chemotherapy, or radiation?:cardiac catheterization Type of Exam?:Initial Additional signs and symptoms?:n Performed By: #### 4 6124 #### LAB [address] [address] Moody Martinez M.D. [id number] Urea nitrogen/Creatinine [Mass ratio] 18.8 mg/mg Normal 10.0-20.0 [facility] Comment on above: Order Comment: Injur y/Trauma or Illness?:Illness/Other How long have you had these symptoms (acute/chronic)?:Acute Reason for exam?:sob History of cancer?:. Surgeries, chemotherapy, or radiation?:cardiac catheterization Type of Exam?:Initial Additional signs and symptoms?:n Performed By: #### 4 6124 ####[facility] [address] [address] Moody Martinez M.D. [id number] BETA-HYDROXYBUTYRATEon 02-28 BETA-HYDROXYBUTYRATE < Normal 0.0-0.[address] [facility] Comment on above: Performed By: #### 4 5139 #### LAB [address] [address] Moody Martinez M.D. [id number] BETA-HYDROXYBUTYRATE 1.1 mmol/L High 0.0-0.[address] [facility] Comment on above: Performed By: #### 4 5158 #### LAB [address] [address] Moody Martinez M.D. [id number] BETA-HYDROXYBUTYRATE 3.3 mmol/L High 0.0-0.[address] [facility] Comment on above: Performed By: #### 4 4014 #### LAB [address] [address] Moody Martinez M.D. [id number] BETA-HYDROXYBUTYRATE 3.3 mmol/L High 0.0-0.[address] [facility] Comment on above: Performed By: #### 4 4014 #### LAB [address] [address] Moody Martinez M.D. [id number] BLOOD CULTURE AEROBIC/ANAERO BICon 02-28-2025 BLOOD CULTURE AEROBIC/ANAEROBIC BLOOD CULTURE No Growth after 5 days [facility] Comment on above: Performed By: #### 4 4014 #### LAB [address] [address] Moody Martinez M.D. [id number] Performed By: #### 4 4014 #### LAB [address] [address] Moody Martinez M.D. [id number] CBC WITH AUTO DIFFERENTIALon 02-28-2025 AUTO NRBC 0.0 % [facility] Comment on above: Performed By: #### L [id number] ####[facility] LAB [address] [address] Moody Martinez M.D. [id number] AUTO NRBC ABS COUNT 0.00 K/mcL Normal 0.00-0.00 [facility] Comment on above: Performed By: #### L [id number] #### LAB [address] [address] Moody Martinez M.D. [id number] BASOPHILS ABSOLUTE COUNT 0.05 K/mcL Normal 0.00-0.30 [facility] Comment on above: Performed By: #### L [id number] #### LAB [address] [address] Moody Martinez M.D. [id number] Basophils/100 WBC (Bld) 0.3 % [facility] Comment on above: Performed By: #### L [id number] #### LAB [address] [address] Moody Martinez M.D. [id number] Eosinophils (Bld) [#/Vol] 0.00 10*3/uL Normal 0.00-0.5 0 [facility] Comment on above: Performed By: #### L [id number] #### LAB [address] [address] Mooyd Martinez M.D. [id number] Eosinophils/100 WBC (Bld) 0.0 % Normal [facility] Comment on above: Performed By: #### L [id number] #### LAB [address] [address] Moody Martinez M.D. [id number] Erythrocyte distribution width (RBC) [Ratio] 13.5 % Normal 11.6-14.8 [facility] Comment on above: Performed By: #### L [id number] #### LAB [address] [address] Moody Martinez M.D. [id number] Hematocrit (Bld) [Volume fraction] 40.2 % Low 41.0-53.0 [facility] Comment on above: Performed By: #### L [id number] #### LAB [address] [address] Moody Martinez M.D. [id number] Hemoglobin (Bld) [Mass/Vol] 13.1 g/dL Low 13.5-17.5 [facility] Comment on above: Performed By: #### L [id number] #### LAB [address] [place] [address] Moody Martinez M.D. [id number] IG ABSOLUTE 0.16 K/mcL Normal 0.00-0.30 [facility] Comment on above: Performed By: #### L [id number] #### LAB [address] [place] [address] Moody Martinez M.D. [id number] IG PERCENT 0.80 % Normal [facility] Comment on above: Result Comment: The IG parameter is the percentage of metamyelocytes, myelocytes and promyelocytes. An immature granulocyte count (IG) of 1% or more suggests the possibility of infection, an IG count of 3% is very likely related to an infection. Performed By: #### L [id number] #### LAB [address] [address] Moody Martinez M.D. [id number] Lymphocytes (Bld) [#/Vol] 1.13 10*3/uL Normal 0.90-4.0 0 [facility] Comment on above: Performed By: #### L [id number] #### LAB [address] [address] Moody Martinez M.D. [id number] Lymphocytes/100 WBC (Bld) 6.0 % Normal [facility] Comment on above: Performed By: #### L [id number] #### LAB [address] [address] Moody Martinez M.D. [id number] MCH (RBC) [Entitic mass] 30.8 pg Normal 26.0-34.0 [facility] Comment on above: Performed By: #### L [id number] #### LAB [address] [address] Moody Martinez M.D. [id number] MCV (RBC) [Entitic vol] 94.6 fL Normal 80.0-100.0 [facility] Comment on above: Performed By: #### L [id number] #### LAB [address] [place] [address] Moody Martinez M.D. [id number] MEAN CORPUSCULAR HEMOGLOBIN CONC 32.6 g/dL Normal 31.0-37.0 [facility] Comment on above: Performed By: #### L [id number] #### LAB [address] [address] Moody Martinez M.D. [id number] Monocytes (Bld) [#/Vol] 0.91 10*3/uL High 0.30-0.90 [facility] Comment on above: Performed By: #### L [id number] #### LAB [address] [place] [address] Moody Martinez M.D. [id number] Monocytes/100 WBC (Bld) 4.8 % Normal [facility] Comment on above: Performed By: #### L [id number] #### LAB [address] [address] Moody Martinez M.D. [id number] NEUTROPHILS ABSOLUTE COUNT 16.63 K/mcL High 1.70-7.00 [facility] Comment on above: Performed By: #### L [id number] #### LAB [address] [address] Moody Martinez M.D. [id number] Neutrophils/100 WBC (Bld) 88.1 % Normal [facility] Comment on above: Performed By: #### L [id number] #### LAB [address] [address] Moody Martinez M.D. [id number] Platelet mean volume (Bld) [Entitic vol] 11.1 fL Normal 9.4-12.4 [facility] Comment on above: Performed By: #### L [id number] #### LAB [address] [address] Moody Martinez M.D. [id number] Platelets (Bld) [#/Vol] 258 10*3/uL Normal 150-400 [facility] Comment on above: Performed By: #### L [id number] #### LAB [address] [address] Moody Martinez M.D. [id number] RBC (Bld) [#/Vol] 4.25 10*6/uL Low 4.50-5.90 [facility] Comment on above: Performed By: #### L [id number] ####[facility] LAB [address] [address] Moody Martinez M.D. [id number] WBC (Bld) [#/Vol] 18.88 10*3/uL High 4.50-11.[address] [facility] Comment on above: Performed By: #### L [id number] #### LAB [address] [address] Moody Martinez M.D. [id number] COVID-19/INFLUENZA A,B MOLEC ULARon 02-28-2025 SARS-CoV-2 (COVID-19) Ab IA Ql SARS-COV-2 (FERDINAND) Not Detected INFLUENZA A (FERDINAND) Not Detected INFLUENZA B (FERDINAND) Not Detected Normal Not Detected [facility] Comment on above: Performed By: #### L [id number] #### LAB [address] [place], [place] [address] Moody Martinez M.D. [id number] CRP, INFLAMMATIONon 02-29-20 25 CRP (INFLAMMATION) < Normal 0.0-10.0 [facility] Comment on above: Performed By: #### 4 5334 #### LAB [address] [place], [place] [address] Moody Martinez M.D. [id number] D-DIMER, QUANTITATIVEon 02-01 D-DIMER QUANTITATIVE 1.67 mcg/mL FEU High 0.27-0.49 [facility] Comment on above: Order Comment: A D-d [...] By: #### 4 5434 #### LAB [address] [place], [place] [address] Moody Martinez M.D. [id number] ED Procedureon 02-28-2025 ED Procedure ECG 12 Lead Date/Time: 02/28/2025 4:33 AM Performed by: Conchita Yañez MD Authorized by: Conchita Yañez MD Interpreted by ED attending physician Rhythm: sinus rhythm and sinus tachycardia BPM: 103 Clinical impression: sinus tachycardia Comments: NH interval 144 QRS duration 90 QTc 437 AUTHENTICATED BY CONCHITA YAÑEZ, ON 02/28/2025 04:33:26 Normal [facility] ED Procedure EKG 12-lead Date/Time: 02/28/2025 3:26 AM Performed by: Conchita Yañez MD Authorized by: Conchita Yañez MD Interpreted by ED attending physician Rhythm: sinus rhythm BPM: 88 Comments: NH interval 162 QRS duration 102 QTc 491 T wave inversion in lead III and aVF as well as V5 V6 AUTHENTICATED BY CONCHITA YAÑEZ, ON 02/28/2025 03:26:34 Normal [facility] ED Prov Noteon 02-28-2025 ED Prov Note [facility] ATTENDING NOTE: NAME: Enoc Armando CSN: [id number] 79 y.o. PCP: Ryley Jeter MD History: [...] Procedure Laterality Date CATARACT EXT/ECCE Bilateral 12/2012,07/2014 NH CATH PLMT L HRT & ARTS W/NJX & ANGIO IMG S&I N/A 10/27/2024 Procedure: Coronary Angiogram; Surgeon: Elías Rodriguez MD; Location: [facility]; Service: Cardiovascular NH CATH PLMT L HRT & ARTS W/NJX & ANGIO IMG S&I N/A 10/27/2024 Procedure: Left Heart Cath; Surgeon: Elías Rodriguez MD; Location: [facility]; Service: Cardiovascular SKIN CANCER EXCISION 09/2021 L [...] -- 02/28 (more content not included)... Normal [facility] HEMOGLOBIN A1Con 02-28-2025 Glucose [Mass/Vol] 171 mg/dL High 74-114 [facility] Comment on above: Performed By: #### 4 8202 #### LAB [address] [place], [place] [address] Moody Martinez M.D. [id number] HbA1c (Bld) [Mass fraction] 7.6 % High 4.2-5.6 [facility] Comment on above: Performed By: #### 4 8202 #### LAB [address] [place], [place] [address] Moody Martinez M.D. [id number] LACTIC ACID, PLASMAon 2024 LACTIC ACID, PLASMA 2.9 mmol/L High 0.6-2.0 [facility] Comment on above: Performed By: #### 4 4014 #### LAB [address] [address] Moody Martinez M.D. [id number] LEGIONELLA ANTIGEN, URINEon 02-28-2025 LEGIONELLA ANTIGEN, URINE LEGIONELLA ANT IGEN Negative for Legionella antigen COMMENT: Results may be affected if patient is on diuretics. INTERPRETATION OF RESULTS: Test detects Legionella pneumophilia serogroup 1 antigens in urine. Legionnaires disease cannot be ruled out since other serogroups and species may also cause disease. Normal [facility] Comment on above: Performed By: #### 4 4090 #### LAB [address] [address] Moody Martinez M.D. [id number] MRSA DNA AMPLIFIED PROBEon 0 02-28-2025 MRSA DNA AMPLIFIED PROBE Negative Normal Not Detected, MRSA NEGATIVE [facility] Comment on above: Performed By: #### 4 8061 #### LAB [address] [address] Moody Martinez M.D. [id number] NT PRO BNPon 02-28-2025 Natriuretic peptide B (Bld) [Mass/Vol] 9634 pg/mL High 0-300 [facility] Comment on above: Order Comment: Injur y/Trauma or Illness?:Illness/Other How long have you had these symptoms (acute/chronic)?:Acute Reason for exam?:sob History of cancer?:. Surgeries, chemotherapy, or radiation?:cardiac catheterization Type of Exam?:Initial Additional signs and symptoms?:n Performed By: #### 4 7395 #### LAB [address] [address] Moody Martinez M.D. [id number] Natriuretic peptide B (Bld) [Mass/Vol] 3396 pg/mL High 0-300 [facility] Comment on above: Order Comment: Pride Study Cut-offsRule In:< /= 50 Years >450 pg/mL51 Years - 75 Years >900 pg/mL76 Years - 99 Years >1800 pg/mLRule Out:All patients <300 pg/mL Performed By: #### 4 7395 #### LAB [address] [place], [place] [address] Moody Martinez M.D. [id number] OSMOLALITYon 02-28-2025 Osmolality [Osmolality] 328 mosm/kg High 275-295 [facility] Comment on above: Performed By: #### 4 6230 #### LAB [address] [address] Moody Martinez M.D. [id number] PHOSPHORUSon 02-28-2025 Phosphate [Mass/Vol] 2.5 mg/dL Normal 2.3-3.[address] [facility] Comment on above: Performed By: #### 4 6299 #### LAB [address] [address] Moody Martinez M.D. [id number] Phosphate [Mass/Vol] 2.7 mg/dL Normal 2.3-3.[address] [facility] Comment on above: Performed By: #### 4 6299 #### LAB [address] [address] Moody Martinez M.D. [id number] Phosphate [Mass/Vol] 3.5 mg/dL Normal 2.3-3.[address] [facility] Comment on above: Performed By: #### 4 6299 #### LAB [address] [address] Moody Martinez M.D. [id number] POC GLUCOSE - [facility] 025 Glucose [Mass/Vol] 236 mg/dL [facility] [address] Comment on above: Performed By: #### 4 6932 ####[facility] LAB [address] [address] Moody Martinez M.D. [id number] Glucose [Mass/Vol] 153 mg/dL [address] Comment on above: Performed By: #### L [id number] #### [facility] [address] [address] Moody Martinez M.D. [id number] Glucose [Mass/Vol] 57 mg/dL Low [address] [place] [address] Comment on above: Performed By: #### 4 6932 #### LAB [address] [address] Moody Martinez M.D. [id number] Glucose [Mass/Vol] 73 mg/dL Normal [address] [place] [address] Comment on above: Performed By: #### 4 6932 ####[facility] LAB [address] [address] Moody Martinez M.D. [id number] Glucose [Mass/Vol] 102 mg/dL High [address] [place] [address] Comment on above: Performed By: #### L [id number] #### LAB [address] [address] Moody Martinez M.D. [id number] Glucose [Mass/Vol] 119 mg/dL High [address] [place] [address] Comment on above: Performed By: #### 4 6932 #### LAB [address] [address] Moody Martinez M.D. [id number] Glucose [Mass/Vol] 146 mg/dL [address] Comment on above: Performed By: #### 4 6932 #### LAB [address] [address] Moody Martinez M.D. [id number] Glucose [Mass/Vol] 177 mg/dL High [address] [place] [address] Comment on above: Performed By: #### 4 6932 #### LAB [address] [address] Moody Martinez M.D. [id number] Glucose [Mass/Vol] 241 mg/dL High [address] [place] [address] Comment on above: Performed By: #### 4 6932 #### LAB [address] [address] Moody Martinez M.D. [id number] Glucose [Mass/Vol] 326 mg/dL High [address] [place] [address] Comment on above: Performed By: #### 4 6932 #### LAB [address] [address] Moody Martinez M.D. [id number] Glucose [Mass/Vol] 429 mg/dL Off scale high [address] [place] [address] Comment on above: Order Comment: Criti christian result acted upon time of test. Test performed at bedside. Performed By: #### 4 6932 ####[facility] LAB [address] [address] Moody Martinez M.D. [id number] POC GLUCOSE > Off scale high [address] [place] [address] Comment on above: Order Comment: Criti christian result acted upon time of test. Test performed at bedside. Performed By: #### 4 6932 ####[facility] [address] [address] Moody Martinez M.D. [id number] POC GLUCOSE > Off scale high [address] [place] [address] Comment on above: Order Comment: Criti christian result acted upon time of test. Test performed at bedside. Performed By: #### 4 6932 ####[facility] [address] [address] Moody Martinez M.D. [id number] POC VENOUS BLOOD GAS PANEL-P ROSE Lyons 02-28-2025 BASE EXCESS, VENOUS -5.7 Low -2.0-2.0 [facility] Comment on above: Performed By: #### 4 8717 ####[facility] LAB [address] [address] Moody Martinez M.D. [id number] FIO2 50 Normal [facility] Comment on above: Performed By: #### 4 8717 ####[facility] LAB [address] [address] Moody Martinez M.D. [id number] HCO3 (Bld) [Moles/Vol] 19.3 mmol/L Low 24.0-28.0 [facility] Comment on above: Performed By: #### 4 8717 ####[facility] LAB [address] [address] Moody Martinez M.D. [id number] Hematocrit (Bld) [Volume fraction] 37.3 % Low 41.0-53.0 [facility] Comment on above: Performed By: #### 4 8717 #### LAB [address] [address] Moody Martinez M.D. [id number] Hemoglobin (Bld) [Mass/Vol] 12.2 g/dL Low 13.5-17.5 [facility] Comment on above: Performed By: #### 4 8717 #### LAB [address] [address] Moody Martinez M.D. [id number] Oxygen saturation in Blood 93.7 % High 40.0-70.0 [facility] Comment on above: Performed By: #### 4 8717 #### LAB [address] [address] Moody Martinez M.D. [id number] PCO2 VENOUS 35.1 mm Hg Low 41.0-51.0 [facility] Comment on above: Performed By: #### 4 8717 #### LAB [address] [address] Moody Martinez M.D. [id number] PH VENOUS 7.35 Normal 7.32-7.42 [facility] Comment on above: Performed By: #### 4 8717 #### LAB [address] [address] Moody Martinez M.D. [id number] PO2 VENOUS 68 mm Hg High 25-40 [facility] Comment on above: Performed By: #### 4 8717 #### LAB [address] [address] Moody Martinez M.D. [id number] RESP RATE RAD 14 Normal [facility] Comment on above: Performed By: #### 4 8717 #### LAB [address] [place] [address] Moody Martinez M.D. [id number] SPECIMEN SOURCE RADIANCE Not specified [facility] Comment on above: Performed By: #### 4 8717 ####[facility] LAB [address] [address] Moody Martinez M.D. [id number] BASE EXCESS, VENOUS -5.9 Low -2.0-2.0 [facility] Comment on above: Performed By: #### 4 8717 ####[facility] LAB [address] [place] [id number] Moody Martinez M.D. [id number] HCO3 (Bld) [Moles/Vol] 20.5 mmol/L Low 24.0-28.0 [facility] Comment on above: Performed By: #### 4 8717 ####[facility] LAB [address] [address] Moody Martinez M.D. [id number] Hematocrit (Bld) [Volume fraction] 42.0 % Normal 41.0-53.0 [facility] Comment on above: Performed By: #### 4 8717 ####[facility] LAB [address] [address] Moody Martinez M.D. [id number] Hemoglobin (Bld) [Mass/Vol] 13.7 g/dL Normal 13.5-17.5 [facility] Comment on above: Performed By: #### 4 8717 ####[facility] [address] [address] Moody Martinez M.D. [id number] LITER FLOW 2 Normal [facility] Comment on above: Performed By: #### 4 8717 ####[facility] [address] [address] Moody Martinez M.D. [id number] Oxygen saturation in Blood 50.9 % Normal 40.0-70.0 [facility] Comment on above: Performed By: #### 4 8717 ####[facility] LAB [address] [address] Moody Martinez M.D. [id number] PCO2 VENOUS 43.1 mm Hg Normal 41.0-51.0 [facility] Comment on above: Performed By: #### 4 8717 ####[facility] LAB [address] [place] [id number] Moody Martinez M.D. [id number] PH VENOUS 7.29 Low 7.32-7.42 [facility] Comment on above: Performed By: #### 4 8717 ####[facility] LAB [address] [place] [id number] Moody Martinez M.D. [id number] PO2 VENOUS 30 mm Hg Normal 25-40 [facility] Comment on above: Performed By: #### 4 8717 ####[facility] LAB [address] [place] [address] Moody Martinez M.D. [id number] SPECIMEN SOURCE RADIANCE Not specified Normal [facility] Comment on above: Performed By: #### 4 8717 #### LAB [address] [place] [address] Moody Martinez M.D. [id number] PROCALCITONINon 02-28-2025 PROCALCITONIN 0.18 ng/ml Normal <0.50 [facility] Comment on above: Order Comment: Resul ts <0.50 ng/ml represent a low risk of severe sepsis and/or septic shock. Performed By: #### 4 6932 #### LAB [address] [place] [address] Moody Martinez M.D. [id number] REFLEX LACTIC ACID, PLASMAon 02-28-2025 LACTIC ACID, PLASMA 2.0 mmol/L Normal 0.6-2.0 [facility] Comment on above: Performed By: #### 4 4014 #### LAB [address] [place] [address] Moody Martinez M.D. [id number] LACTIC ACID, PLASMA 3.5 mmol/L High 0.6-2.0 [facility] Comment on above: Performed By: #### L [id number] ####[facility] LAB [address] [place] [address] Moody Martinez M.D. [id number] RESPIRATORY PCR PANELon 02-01 RESPIRATORY PCR PANEL [...] SARS-COV-2 (BIOFIRE) Not Detected Normal Not Detected [facility] Comment on above: Performed By: #### L [id number] ####[facility] [address] Jose Cisse M.D. [id number] S.PNEUMONIAE URINE ANTIGENon 02-28-2025 S.PNEUMONIAE URINE ANTIGEN STREP PNEUMONIAE ANTIGEN, URINE Presumptive Negative for Pneumococcal pneumoniae A negative result does not rule out Streptococcus pneumoniae infection since the antigen present in the sample may be below the detection limit of the test. [facility] Comment on above: Performed By: #### 4 7222 #### LAB [address] [place] [address] Moody Martinez M.D. [id number] SEDIMENTATION RATEon 025 SEDIMENTATION RATE, ERYTHROCYTE 16 mm/hr Normal 0-20 [facility] Comment on above: Performed By: #### 4 6477 #### LAB [address] [place] [address] Moody Martinez M.D. [id number] TROPONIN X 2 (NOW AND REPEAT IN 2 HOURS)on 02-28-2025 TROPONIN T DELTA % NG/L 176 % Off scale high <2 0% of Baseline Troponin [facility] Comment on above: Performed By: #### 4 6608 #### LAB [address] [place] [address] Moody Martinez M.D. [id number] TROPONIN T DELTA CHANGE INTERPRETATION Probable acute injury or myocardial infarction. [facility] Comment on above: Performed By: #### 4 6608 #### LAB [address] [place] [address] Moody Martinez M.D. [id number] TROPONIN T NG/L 207 ng/L Off scale high <=22 [facility] Comment on above: Performed By: #### 4 6608 #### LAB [address] [place] [address] Moody Martinez M.D. [id number] BASELINE TROPONIN T NG/L 75 ng/L Off scale high <=22 [facility] Comment on above: Performed By: #### 4 4014 #### LAB [address] [place] [address] Moody Martinez M.D. [id number] TROPONIN T INTERPRETATION Possible acute cardiac injury. Normal [facility] Comment on above: Performed By: #### 4 4014 #### LAB [address] [place] [address] Moody Martinez M.D. [id number] TSH WITH REFLEX FREE T4on TSH Qn 0.61 m[IU]/L Normal 0.27-4.20 [facility] Comment on above: Performed By: #### 4 6612 #### LAB [address] [place] [address] Moody Martinez M.D. [id number] URINALYSISon 02-28-2025 BACTERIA, URINE None Seen Normal None Seen [facility] Comment on above: Order Comment: Micro scopic examination is performed on all urinalysis samples and only positive findings are reported. The test for blood on the chemical analytic portion of urinalysis may also be positive due to hemoglobinuria and myoglobinuria and if red blood cells are present they are quantified by microscopic examination. Performed By: #### 4 6625 #### LAB [address] [place] [address] Moody Martinez M.D. [id number] BILIRUBIN, URINE Negative Normal Negative [facility] Comment on above: Order Comment: Micro scopic examination is performed on all urinalysis samples and only positive findings are reported. The test for blood on the chemical analytic portion of urinalysis may also be positive due to hemoglobinuria and myoglobinuria and if red blood cells are present they are quantified by microscopic examination. Performed By: #### 4 6625 #### LAB [address] [place] [address] Moody Martinez M.D. [id number] BLOOD, URINE Negative Normal Negative [facility] Comment on above: Order Comment: Micro scopic examination is performed on all urinalysis samples and only positive findings are reported. The test for blood on the chemical analytic portion of urinalysis may also be positive due to hemoglobinuria and myoglobinuria and if red blood cells are present they are quantified by microscopic examination. Performed By: #### 4 6625 #### LAB [address] [address] Moody Martinez M.D. [id number] Clarity (U) Clear Normal Clear [facility] Comment on above: Order Comment: Micro scopic examination is performed on all urinalysis samples and only positive findings are reported. The test for blood on the chemical analytic portion of urinalysis may also be positive due to hemoglobinuria and myoglobinuria and if red blood cells are present they are quantified by microscopic examination. Performed By: #### 4 6625 #### LAB [address] [address] Moody Martinez M.D. [id number] Color (U) Yellow Normal Colorless, Yellow [facility] Comment on above: Order Comment: Micro scopic examination is performed on all urinalysis samples and only positive findings are reported. The test for blood on the chemical analytic portion of urinalysis may also be positive due to hemoglobinuria and myoglobinuria and if red blood cells are present they are quantified by microscopic examination. Performed By: #### 4 6625 #### LAB [address] [address] Moody Martinez M.D. [id number] Glucose Ql (U) >=500 Abnormal Negative [facility] Comment on above: Order Comment: Micro scopic examination is performed on all urinalysis samples and only positive findings are reported. The test for blood on the chemical analytic portion of urinalysis may also be positive due to hemoglobinuria and myoglobinuria and if red blood cells are present they are quantified by microscopic examination. Performed By: #### 4 6625 #### LAB [address] [id number] Moody Martinez M.D. [id number] Hyaline casts LM Ql (Urine sed) 3-5 Abnormal 0-2 [facility] Comment on above: Order Comment: Micro scopic examination is performed on all urinalysis samples and only positive findings are reported. The test for blood on the chemical analytic portion of urinalysis may also be positive due to hemoglobinuria and myoglobinuria and if red blood cells are present they are quantified by microscopic examination. Performed By: #### 4 6625 #### LAB [address] [address] Moody Martinez M.D. [id number] Ketones Ql (U) Trace Abnormal Negative [facility] Comment on above: Order Comment: Micro scopic examination is performed on all urinalysis samples and only positive findings are reported. The test for blood on the chemical analytic portion of urinalysis may also be positive due to hemoglobinuria and myoglobinuria and if red blood cells are present they are quantified by microscopic examination. Performed By: #### 4 6625 #### LAB [address] [id number] Moody Martinez M.D. [id number] Leukocyte esterase Test strip Ql (U) Negative Normal Negative [facility] Comment on above: Order Comment: Micro scopic examination is performed on all urinalysis samples and only positive findings are reported. The test for blood on the chemical analytic portion of urinalysis may also be positive due to hemoglobinuria and myoglobinuria and if red blood cells are present they are quantified by microscopic examination. Performed By: #### 4 6625 #### LAB [address] [id number] Moody Martinez M.D. [id number] MUCUS, URINE Rare Normal None Seen, Rare [facility] Comment on above: Order Comment: Micro scopic examination is performed on all urinalysis samples and only positive findings are reported. The test for blood on the chemical analytic portion of urinalysis may also be positive due to hemoglobinuria and myoglobinuria and if red blood cells are present they are quantified by microscopic examination. Performed By: #### 4 6625 #### LAB [address] [address] Moody Martinez M.D. [id number] NITRITE, URINE Negative Normal Negative [facility] Comment on above: Order Comment: Micro scopic examination is performed on all urinalysis samples and only positive findings are reported. The test for blood on the chemical analytic portion of urinalysis may also be positive due to hemoglobinuria and myoglobinuria and if red blood cells are present they are quantified by microscopic examination. Performed By: #### 4 6625 #### LAB [address] [address] Moody Martinez M.D. [id number] pH (U) 5.5 [pH] Normal 5.0-7.0 [facility] Comment on above: Order Comment: Micro scopic examination is performed on all urinalysis samples and only positive findings are reported. The test for blood on the chemical analytic portion of urinalysis may also be positive due to hemoglobinuria and myoglobinuria and if red blood cells are present they are quantified by microscopic examination. Performed By: #### 4 6625 #### LAB [address] [address] Moody Martinez M.D. [id number] PROTEIN, URINE Negative Normal Negative [facility] Comment on above: Order Comment: Micro scopic examination is performed on all urinalysis samples and only positive findings are reported. The test for blood on the chemical analytic portion of urinalysis may also be positive due to hemoglobinuria and myoglobinuria and if red blood cells are present they are quantified by microscopic examination. Performed By: #### 4 6625 #### LAB [address] [address] Moody Martinez M.D. [id number] RBC LM.HPF (Urine sed) [#/Area] 1 /[HPF] Normal 0-3 [facility] Comment on above: Order Comment: Micro scopic examination is performed on all urinalysis samples and only positive findings are reported. The test for blood on the chemical analytic portion of urinalysis may also be positive due to hemoglobinuria and myoglobinuria and if red blood cells are present they are quantified by microscopic examination. Performed By: #### 4 6625 #### LAB [address] [id number] Moody Martinez M.D. [id number] Specific gravity (U) [Rel density] 1.012 Normal 1.005-1.025 [facility] Comment on above: Order Comment: Micro scopic examination is performed on all urinalysis samples and only positive findings are reported. The test for blood on the chemical analytic portion of urinalysis may also be positive due to hemoglobinuria and myoglobinuria and if red blood cells are present they are quantified by microscopic examination. Performed By: #### 4 6625 #### LAB [address] [place] [address] Moody Martinez M.D. [id number] UROBILINOGEN, URINE <2.0 Normal <2.0 [facility] Comment on above: Order Comment: Micro scopic examination is performed on all urinalysis samples and only positive findings are reported. The test for blood on the chemical analytic portion of urinalysis may also be positive due to hemoglobinuria and myoglobinuria and if red blood cells are present they are quantified by microscopic examination. Performed By: #### 4 6625 #### LAB [address] [place] [address] Moody Martinez M.D. [id number] WBC LM.HPF (Urine sed) [#/Area] 1 /[HPF] Normal 0-5 [facility] Comment on above: Order Comment: Micro scopic examination is performed on all urinalysis samples and only positive findings are reported. The test for blood on the chemical analytic portion of urinalysis may also be positive due to hemoglobinuria and myoglobinuria and if red blood cells are present they are quantified by microscopic examination. Performed By: #### 4 6625 #### LAB [address] [place] [address] Moody Martinez M.D. [id number] URINE AEROBIC CULTUREon 02-01 URINE AEROBIC CULTURE URINE CULTURE < 10,000 CFU/mL of normal urogenital microbiota Normal [facility] Comment on above: Performed By: #### 4 4053 ####[facility] [address] Jose Cisse M.D. [id number] XR CHEST PA/APon 02-28-2025 XR CHEST PA/AP [...] on WedFeb 28, 2025 4:00:36 AM EDT [facility] Comment on above: Order Comment: Injur [...] Not established Performed By: #### 7 909, 50866, 6517 #### [facility] [address] [address] Computer Equipment Installer: Jadon Velez MD ALBUMIN/CREATININE RATIO, RANDOM URINE [...] diagnostic category. Performed By: #### 7 909, 77780, 6517 #### [facility] [address] [place] [address] Computer Equipment Installer: Jadon Velez MD Creatinine (U) [Mass/Vol] 57 mg/dL Normal 20-320 [facility] Comment on above: Performed By: #### 7 909, 47426, 6517 #### [facility] [address] [place] [address] Computer Equipment Installer: Jadon Velez MD [facility] 02-13-2025 Albumin [Mass/Vol] 4.3 g/dL Normal 3.6-5.1 [facility] Comment on above: Performed By: #### 8 66, 7600, 496, 78852, 18878 #### [facility] [address] [place] [address] Computer Equipment Installer: Jadon Velez MD Albumin/Globulin [Mass ratio] 1.7 {ratio} Normal 1.0-2.5 [facility] Comment on above: Performed By: #### 8 66, 7600, 496, 52112, 81846 #### [facility] [address] [place] [address] Computer Equipment Installer: Jadon Velez MD ALP [Catalytic activity/Vol] 61 U/L Normal 35-144 [facility] Comment on above: Performed By: #### 8 66, 7600, 496, 93813, 67776 #### [facility] [address] [place] [address] Computer Equipment Installer: Jadon Velez MD ALT [Catalytic activity/Vol] 12 U/L Normal 9-46 [facility] Comment on above: Performed By: #### 8 66, 7600, 496, 63346, 55594 #### [facility] [address] [place] [address] Computer Equipment Installer: Jadon Velez MD AST [Catalytic activity/Vol] 16 U/L Normal 10-35 [facility] Comment on above: Performed By: #### 8 66, 7600, 496, 33244, 53097 #### [facility] [address] [place] [address] Computer Equipment Installer: Jadon Velez MD Bilirubin [Mass/Vol] 0.5 mg/dL Normal 0.2-1.2 [facility] Comment on above: Performed By: #### 8 66, 7600, 496, 34588, 48245 #### [facility] [address] [place] [address] Computer Equipment Installer: Jadon Velez MD Calcium [Mass/Vol] 9.3 mg/dL Normal 8.6-10.3 [facility] Comment on above: Performed By: #### 8 66, 7600, 496, 15569, 98098 #### [facility] [address] [place] [address] Computer Equipment Installer: Jadon Velez MD Chloride [Moles/Vol] 102 mmol/L Normal 98-110 [facility] Comment on above: Performed By: #### 8 66, 7600, 496, 46457, 38482 #### [facility] [address] [place] [address] Computer Equipment Installer: Jadon Velez MD CO2 [Moles/Vol] 28 mmol/L Normal 20-32 [facility] Comment on above: Performed By: #### 8 66, 7600, 496, 31936, 90351 #### [facility] [address] [place] [address] Computer Equipment Installer: Jadon Velez MD Creatinine [Mass/Vol] 1.76 mg/dL High 0.70-1.[address] [facility] Comment on above: Performed By: #### 8 66, 7600, 496, 34464, 43909 #### [facility] [address], [address] [place] [address] Computer Equipment Installer: Jadon Velez MD GFR/1.73 sq M.predicted among non-blacks MDRD (S/P/Bld) [Vol rate/Area] 38 mL/min/{1.73_m2} Low > OR = 60 [facility] Comment on above: Performed By: #### 8 66, 7600, 496, 93835, 25469 #### [facility] [address], [address] [place] [address] Computer Equipment Installer: Jadon Velez MD Globulin (S) [Mass/Vol] 2.6 g/dL Normal 1.9-3.7 [facility] Comment on above: Performed By: #### 8 66, 7600, 496, 57011, 29094 #### [facility] [address] [place] [address] Computer Equipment Installer: Jadon Velez MD Glucose [Mass/Vol] 242 mg/dL High 65-99 [facility] Comment on above: Result Comment: Fasting reference interval For someone without known diabetes, a glucose value >125 mg/dL indicates that they may have diabetes and this should be confirmed with a follow-up test. Performed By: #### 8 66, 7600, 496, 06945, 47164 #### [facility] [address], [address] [place] [address] Computer Equipment Installer: Jadon Velez MD Potassium [Moles/Vol] 4.6 mmol/L Normal 3.5-5.[address] [facility] Comment on above: Performed By: #### 8 66, 7600, 496, 28995, 49600 #### [facility] [address], [address] [place] [address] Computer Equipment Installer: Jadon Velez MD Protein [Mass/Vol] 6.9 g/dL Normal 6.1-8.1 [facility] Comment on above: Performed By: #### 8 66, 7600, 496, 79624, 88279 #### [facility] of [address], [address] [place] [address] Computer Equipment Installer: Jadon Velez MD Sodium [Moles/Vol] 140 mmol/L Normal 135-146 [facility] Comment on above: Performed By: #### 8 66, 7600, 496, 00711, 62547 #### [facility] of [address], [address] [place] [address] Computer Equipment Installer: Jadon Velez MD Urea nitrogen [Mass/Vol] 38 mg/dL High 7-25 [facility] Comment on above: Performed By: #### 8 66, 7600, 496, 49613, 71874 #### [facility] of [address], [address] [place] [address] Computer Equipment Installer: Jadon Velez MD Urea nitrogen/Creatinine [Mass ratio] 22 mg/mg Normal 6-22 [facility] Comment on above: Performed By: #### 8 66, 7600, 496, 84638, 77444 #### [facility] of [address], [address] [place] [address] Computer Equipment Installer: Jadon Velez MD COMPREHENSIVE METABOLIC PANE L W/ANION GAPon 02-13-2025 Albumin [Mass/Vol] 4.3 g/dL Normal 3.6-5.1 [facility] Comment on above: Performed By: #### 7 979, 74319, 7717 #### [facility] [address] [place] [address] Computer Equipment Installer: Jadon Velez MD ALP [Catalytic activity/Vol] 60 U/L Normal 35-144 [facility] Comment on above: Performed By: #### 7 199, 96483, 0517 #### [facility] [address] [place] [address] Computer Equipment Installer: Jaodn Velez MD ALT [Catalytic activity/Vol] 11 U/L Normal 9-46 [facility] Comment on above: Performed By: #### 7 90, 13169, 6517 #### [facility] [address] [place] [address] Computer Equipment Installer: Jadon Velez MD AST [Catalytic activity/Vol] 15 U/L Normal 10-35 [facility] Comment on above: Performed By: #### 7 90, 85725, 17 #### [facility] [address] [place] [address] Computer Equipment Installer: Jadon Velez MD Bilirubin [Mass/Vol] 0.5 mg/dL Normal 0.2-1.2 [facility] Comment on above: Performed By: #### 7 90, 01420, 17 #### [facility] [address] [place] [address] Computer Equipment Installer: Jadon Velez MD Calcium [Mass/Vol] 9.3 mg/dL Normal 8.6-10.3 [facility] Comment on above: Performed By: #### 7 90, 02543, 6517 #### [facility] [address] [place] [address] Computer Equipment Installer: Jadon Velez MD Chloride [Moles/Vol] 102 mmol/L Normal 98-110 [facility] Comment on above: Performed By: #### 7 90, 57180, 6517 #### [facility] [address] [place] [address] Computer Equipment Installer: Jadon Velez MD CO2 [Moles/Vol] 28 mmol/L Normal 20-32 [facility] Comment on above: Performed By: #### 7 90, 14421, 6517 #### [facility] [address] [place] [address] Computer Equipment Installer: Jadon Velez MD Creatinine [Mass/Vol] 1.80 mg/dL High 0.70-1.[address] [facility] Comment on above: Performed By: #### 7 909, 33939, 6517 #### [facility] [address], [address] [place] [address] Computer Equipment Installer: Jadon Velez MD ELECTROLYTE BALANCE 10 mmol/L (calc) Normal 05-17 [facility] Comment on above: Performed By: #### 7 909, 19861, 6517 #### [facility] [address], [address] [place] [address] Computer Equipment Installer: Jadon Velez MD GFR/1.73 sq M.predicted among non-blacks MDRD (S/P/Bld) [Vol rate/Area] 37 mL/min/{1.73_m2} Low > OR = 60 [facility] Comment on above: Performed By: #### 7 90, 38837, 6517 #### [facility] [address], [address] [place] [address] Computer Equipment Installer: Jadon Velez MD Glucose [Mass/Vol] 241 mg/dL High [facility] Comment on above: Result Comment: Fasting reference interval For someone without known diabetes, a glucose value >125 mg/dL indicates that they may have diabetes and this should be confirmed with a follow-up test. Performed By: #### 7 90, 07127, 6517 #### [facility] [address], [address] [place] [address] Computer Equipment Installer: Jadon Velez MD Potassium [Moles/Vol] 4.7 mmol/L Normal 3.5-5.[address] [facility] [address] [facility] Comment on above: Performed By: #### 7 90, 65830, 6517 #### [facility] [address] [place] [address] Computer Equipment Installer: Jadon Velez MD Protein [Mass/Vol] 6.7 g/dL Normal 6.1-8.1 [facility] Comment on above: Performed By: #### 7 90, 63541, 6517 #### [facility] [place] [address] Computer Equipment Installer: Jadon Velez MD Sodium [Moles/Vol] 140 mmol/L Normal 135-146 [facility] Comment on above: Performed By: #### 7 909, 65154, 8282 #### [facility] [address] [place] [address], [address] Computer Equipment Installer: Jadon Velez MD Urea nitrogen [Mass/Vol] 38 mg/dL High 7-25 [facility] Comment on above: Performed By: #### 7 909, 18554, 8417 #### [facility] [address] [place] [address], [address] Computer Equipment Installer: Jadon Velez MD Comprehensive metabolic 2000 panelon 02-13-2025 Albumin [Mass/Vol] 4.3 g/dL 3.6 - 5.1 g/dL [facility] Albumin/Globulin [Mass ratio] 1.7 {ratio} [facility] ALP [Catalytic activity/Vol] 61 U/L 35 - 144 U/L [facility] ALT [Catalytic activity/Vol] 12 U/L 9 - 46 U/L [facility] AST [Catalytic activity/Vol] 16 U/L 10 - 35 U/L [facility] Bilirubin [Mass/Vol] 0.5 mg/dL 0.2 - 1 .2 mg/dL [facility] Calcium [Mass/Vol] 9.3 mg/dL 8.6 - 10. 3 mg/dL [facility] Chloride [Moles/Vol] 102 mmol/L 98 - 11 0 mmol/L [facility] CO2 [Moles/Vol] 28 mmol/L 20 - 32 mmol/L [facility] Creatinine [Mass/Vol] 1.76 mg/dL High 0.70 - 1.22 mg/dL [facility] GFR/1.73 sq M.predicted among non-blacks MDRD (S/P/Bld) [Vol rate/Area] 38 mL/min/{1.73_m2} Low > OR = 60 mL/min/1.73m2 [facility] Globulin (S) [Mass/Vol] 2.6 g/dL [facility] Glucose [Mass/Vol] 242 mg/dL High 65 - 99 mg/dL [facility] Comment on above: Fasting reference interval For someone without known diabetes, a glucose value >125 mg/dL indicates that they may have diabetes and this should be confirmed with a follow-up test. Interpretation and review of laboratory results Abnormal [facility] Potassium [Moles/Vol] 4.6 mmol/L 3.5 - 5.3 mmol/L [facility] Protein [Mass/Vol] 6.9 g/dL 6.1 - 8.1 g/dL [facility] Sodium [Moles/Vol] 140 mmol/L 135 - 146 mmol/L [facility] Urea nitrogen [Mass/Vol] 38 mg/dL High 7 - 25 mg/d L [facility] Urea nitrogen/Creatinine [Mass ratio] 22 mg/mg [facility] HEMOGLOBIN A1con 02-13-2025 HbA1c (Bld) [Mass fraction] 7.4 % High <5.7 [facility] Comment on above: Result Comment: For [...] for children. Performed By: #### 7 909, 88106, 6517 #### [facility] [address], [address] [place] [address] Computer Equipment Installer: Jadon Velez MD HbA1c (Bld) [Mass fraction]o n 02-13-2025 Interpretation and review of laboratory results Abnormal [facility] Hemoglobin A1con 02-13-2025 HbA1c (Bld) [Mass fraction] 7.4 % High NINF - 5.7 % [facility] Comment on above: For someone without [...] Performed By: #### 8 66, 7600, 496, 35963, 95545 #### [facility] [address], [address] [place], [place] [address] Computer Equipment Installer: Jadon Velez MD Cholesterol in HDL [Mass/Vol] 57 mg/dL Normal > OR = 40 [facility] Comment on above: Performed By: #### 8 66, 7600, 496, 07316, 01569 #### [facility] [address], [address] [place], [place] [address] Computer Equipment Installer: Jadon Velez MD Cholesterol in LDL [Mass/Vol] [...] Ramon SS et al. ANA LAURA. 2013;310(19): 3094-2856 (http://education.CareFamily.[employer] Club/faq/PMH562) Performed By: #### 8 66, 7600, 496, 47036, 75039 #### [facility] [place] [address] Computer Equipment Installer: Jadon Velez MD Cholesterol.total/Cholest santos in HDL [Mass ratio] 2.6 {ratio} Normal <5.0 [facility] Comment on above: Performed By: #### 8 66, 7600, 496, 16418, 70997 #### [facility] [place] [id number] Computer Equipment Installer: Jadon Velez MD NON HDL CHOLESTEROL 91 mg/dL (calc) Normal <130 [facility] Comment on above: Result Comment: For patients with diabetes plus 1 major ASCVD risk factor, treating to a non-HDL-C goal of <100 mg/dL (LDL-C of <70 mg/dL) is considered a therapeutic option. Performed By: #### 8 66, 7600, 496, 68910, 01830 #### [facility] [address], [address] [place] [address] Computer Equipment Installer: Jadon Velez MD Triglyceride [Mass/Vol] 85 mg/dL Normal <150 [facility] Comment on above: Performed By: #### 8 66, 7600, 496, 64475, 13973 #### [facility] [address], [address] [place] [address] Computer Equipment Installer: Jadon Velez MD Lipid 1996 panelon 5 Cholesterol [Mass/Vol] 148 mg/dL [facility] - 200 mg/dL [facility] Cholesterol in HDL [Mass/Vol] 57 mg/dL > OR = 40 [facility] Cholesterol in LDL [Mass/Vol] 74 mg/dL mg/dL (calc) [facility] Comment on above: Reference range: <10 [...] Ramon SORIA et al. ANA LAURA. 2013;310(19): 8254-3985 (http://education.CareFamily.[employer]/faq/QZU938) Cholesterol non HDL [Mass/Vol] 91 mg/dL [facility] Comment on above: For patients with di abetes plus 1 major ASCVD risk factor, treating to a non-HDL-C goal of <100 mg/dL (LDL-C of <70 mg/dL) is considered a therapeutic option. Cholesterol.total/Cholest santos in HDL [Mass ratio] 2.6 {ratio} [facility] Triglyceride [Mass/Vol] 85 mg/dL [facility] - 150 mg/dL [facility] NOTEon 02-13-2025 NOTE Normal [facility] Comment on above: Result Comment: This urine was analyzed for the presence of WBC, RBC, bacteria, casts, and other formed elements. Only those elements seen were reported. Performed By: #### 7 909, 31764, 6517 #### [facility] of [address], [address] [place] [address] Computer Equipment Installer: Jadon Velez MD No Panel Informationon 02-13 [facility] T4, FREEon 02-13-2025 Free T4 [Mass/Vol] 1.4 ng/dL Normal 0.8-1.8 [facility] Comment on above: Performed By: #### 7 909, 25344, 6517 #### [facility] of [address], [address] [place] [address] Computer Equipment Installer: Jadon Velez MD TSH W/REFLEX TO FT4on 2024 TSH W/REFLEX TO FT4 0.36 mIU/L Low 0.40-4.50 [facility] Comment on above: Performed By: #### 8 66, 7600, 496, 38600, 36385 #### [facility] [place] [address] Computer Equipment Installer: Jadon Velez MD URINALYSIS REFLEXon 02-14-20 25 Appearance (U) CLEAR Normal CLEAR [facility] Comment on above: Performed By: #### 7 909, 09236, 6517 #### [facility] [place] [address] Computer Equipment Installer: Jadon Velez MD BACTERIA NONE SEEN Normal NONE SEEN [facility] Comment on above: Performed By: #### 7 909, 57038, 6517 #### [facility] [place] [address] Computer Equipment Installer: Jadon Velez MD Bilirubin Ql (U) Negative Normal NEGATIVE [facility] Comment on above: Performed By: #### 7 909, 52490, 6517 #### [facility] [place] [address] Computer Equipment Installer: Jadon Velez MD Color (U) YELLOW Normal YELLOW [facility] Comment on above: Performed By: #### 7 909, 49816, 6517 #### [facility] [place] [address] Computer Equipment Installer: Jadon Velez MD Glucose Ql (U) Negative Normal NEGATIVE [facility] Comment on above: Performed By: #### 7 909, 65322, 6517 #### [facility] [place] [address] Computer Equipment Installer: Jadon Velez MD HYALINE CAST NONE SEEN Normal NONE SEEN [facility] Comment on above: Performed By: #### 7 909, 48306, 6517 #### [facility] [place] [address] Computer Equipment Installer: Jadon Velez MD Ketones Ql (U) Negative Normal NEGATIVE [facility] Comment on above: Performed By: #### 7 909, 07481, 6517 #### [facility] of [place] [address] Computer Equipment Installer: Jadon Velez MD Leukocyte esterase Test strip Ql (U) TRACE Abnormal NEGATIVE [facility] Comment on above: Performed By: #### 7 909, 92674, 6517 #### [facility] [place] [address] Computer Equipment Installer: Jadon Velez MD Nitrite Ql (U) Negative Normal NEGATIVE [facility] Comment on above: Performed By: #### 7 909, 03106, 6517 #### [facility] [place] [address] Computer Equipment Installer: Jadon Velez MD OCCULT BLOOD Negative Normal NEGATIVE [facility] Comment on above: Performed By: #### 7 909, 26031, 6517 #### [facility] [place] [address] Computer Equipment Installer: Jadon Velez MD pH (U) 6.0 [pH] Normal 5.0-8.0 [facility] Comment on above: Performed By: #### 7 909, 30780, 6517 #### [facility] of [address], [address] [place] [address] Computer Equipment Installer: Jadon Velez MD Protein Ql (U) 1+ Abnormal NEGATIVE [facility] Comment on above: Performed By: #### 7 909, 77847, 6517 #### [facility] [place] [address] Computer Equipment Installer: Jadon Velez MD RBC NONE SEEN Normal < OR = 2 [facility] Comment on above: Performed By: #### 7 909, 27310, 6517 #### [facility] [place] [address] Computer Equipment Installer: Jadon Velez MD Specific gravity (U) [Rel density] 1.011 Normal 1.001-1.035 [facility] Comment on above: Performed By: #### 7 909, 80553, 6517 #### [facility] [place] [address] Computer Equipment Installer: Jadon Velez MD SQUAMOUS EPITHELIAL CELLS NONE SEEN Normal < OR = 5 [facility] Comment on above: Performed By: #### 7 909, 81637, 6517 #### [facility] [place] [address] Computer Equipment Installer: Jadon Velez MD WBC 0-5 Normal < OR = 5 [facility] Comment on above: Performed By: #### 7 909, 81547, 6517 #### [facility] [place] [address] Computer Equipment Installer: Jadon Velez MD Anion gap in Serum or Plasma Ordered By: Kerwin Tamayo on 02-06-2025 Anion gap [Moles/Vol] 12 mmol/L - [facility] BUN/creatinine ratioOrdered By: Kerwin Tamayo on 02-06-2025 Urea nitrogen/Creatinine [Mass ratio] 23.1 mg/mg High - [facility] Basic Metabolic Profile (BMP )on 04-08-2025 BUN/CRE 23.1 RATIO High 10-20 [facility] Comment on above: Performed By: #### L 500.2500, L100.0500 ####[facility] [address] [place], [address] Calcium [Mass/Vol] 9.1 mg/dL Normal 7.6-11.0 [facility] Comment on above: Performed By: #### L 500.2500, L100.0500 ####[facility] [address] [place], [address] Chloride [Moles/Vol] 103 mmol/L Normal 98-108 [facility] Comment on above: Performed By: #### L 500.2500, L100.0500 ####[facility] [address] [place], [address] CO2 [Moles/Vol] 23.7 mmol/L Normal 21.0-32.0 [facility] Comment on above: Performed By: #### L 500.2500, L100.0500 ####[facility] [address] [place], [address] Creatinine [Mass/Vol] 1.88 mg/dL High 0.70-1.20 [facility] Comment on above: Performed By: #### L 500.2500, L100.0500 ####[facility] [address] [place], [address] GAP 12 Normal 5-15 [facility] Comment on above: Performed By: #### L 500.2500, L100.0500 ####[facility] [address] [place], [address] GFR/1.73 sq M.predicted among non-blacks MDRD (S/P/Bld) [Vol rate/Area] 35 mL/min/{1.73_m2} Low >60 [facility] Comment on above: Result Comment: mL/m in/1.73m2 CKD-EPI Creatinine Equation (2020) Performed By: #### L 500.2500, L100.0500 ####[facility] [address] [place], [address] Glucose [Mass/Vol] 287 mg/dL High 70-99 [facility] Comment on above: Performed By: #### L 500.2500, L100.0500 ####[facility] [address] [place], [address] Potassium [Moles/Vol] 4.4 mmol/L Normal 3.3-5.1 [facility] Comment on above: Performed By: #### L 500.2500, L100.0500 ####[facility] [address] [place], [address] Sodium [Moles/Vol] 139 mmol/L Normal 133-145 [facility] Comment on above: Performed By: #### L 500.2500, L100.0500 ####[facility] [address] [place], [address] Urea nitrogen [Mass/Vol] 44 mg/dL High 4-19 [facility] Comment on above: Performed By: #### L 500.2500, L100.0500 ####[facility] [address] [place], [address] CBC-Complete Blood Cnt No Di ffon 02-06-2025 Erythrocyte distribution width (RBC) [Ratio] 13.0 % Normal 11.6-14.6 [facility] Comment on above: Performed By: #### L 500.2500, L100.0500 ####[facility] [address] [place], [address] Hematocrit (Bld) [Volume fraction] 33.8 % Low 40-54 [facility] Comment on above: Performed By: #### L 500.2500, L100.0500 ####[facility] [address] [place], [address] Hemoglobin (Bld) [Mass/Vol] 11.0 g/dL Low 13.0-16.5 [facility] Comment on above: Performed By: #### L 500.2500, L100.0500 ####[facility] [address] [place], [address] MCH (RBC) [Entitic mass] 31.0 pg Normal 27.0-32.0 [facility] Comment on above: Performed By: #### L 500.2500, L100.0500 ####[facility] [address] [place], [address] MCHC (RBC) [Mass/Vol] 32.5 g/dL Normal 32-36 [facility] Comment on above: Performed By: #### L 500.2500, L100.0500 ####[facility] [address] [place], [address] MCV (RBC) [Entitic vol] 95.2 fL High 80-94 [facility] Comment on above: Performed By: #### L 500.2500, L100.0500 ####[facility] [address] [place], [address] Platelet mean volume (Bld) [Entitic vol] 11.2 fL Normal 6.2-12.0 [facility] Comment on above: Performed By: #### L 500.2500, L100.0500 ####[facility] [address] [place], [address] Platelets (Bld) [#/Vol] 239 10*3/uL Normal 150-450 [facility] Comment on above: Performed By: #### L 500.2500, L100.0500 ####[facility] [address] [place], [address] RBC (Bld) [#/Vol] 3.55 10*6/uL Low 4.6-6.2 [facility] Comment on above: Performed By: #### L 500.2500, L100.0500 ####[facility] [address] [place], [address] RDW SD 45.3 fl High 35.1-43.9 [facility] Comment on above: Performed By: #### L 500.2500, L100.0500 ####[facility] [address] [place], [address] WBC (Bld) [#/Vol] 8.9 10*3/uL Normal 4.4-11.0 [facility] Comment on above: Performed By: #### L 500.2500, L100.0500 ####[facility] [address] [place], [address] Carbon dioxide, total [Moles /volume] in Central venous bloodOrdered By: Kerwin Tamayo on 02-06-2025 CO2 [Moles/Vol] 23.7 mmol/L 21.0-32.0 [facility] Chloride assayOrdered By: Daniela Tamayo on 02-06-2025 Chloride [Moles/Vol] 103 mmol/L 98-108 [facility] Erythrocyte distribution wid th (RBC) [Ratio]Ordered By: Kerwin Tamayo on 02-06-2025 Erythrocyte distribution width (RBC) [Entitic vol] 45.3 fL High 35.1-43.9 [facility] Erythrocyte distribution wid th ratioOrdered By: Kerwin Tamayo on 02-06-2025 Erythrocyte distribution width (RBC) [Ratio] 13.0 % 11.6-14.6 [facility] Erythrocyte distribution wid th standard deviationOrdered By: Kerwin Tamayo on 02-06-2025 Erythrocyte distribution width (RBC) [Ratio] 45.3 fl High 35.1-43.9 [facility] GFR/1.73 sq M.predicted park g non-blacks MDRD (S/P/Bld) [Vol rate/Area]Ordered By: Kerwin Tamayo on 02-06-2025 Estimated GFR (MDRD) Non-Af Amer 35 Low >60 [facility] Comment on above: mL/min/1.73m2 CKD-EP I Creatinine Equation (2020) Glomerular filtration rate ( GFR) estimation/1.73 sq m using serum, plasma, or whole bOrdered By: Kerwin Tamayo on 02-06-2025 GFR/1.73 sq M.predicted among non-blacks MDRD (S/P/Bld) [Vol rate/Area] 35 mL/min/{1.73_m2} Low >60 [facility] Comment on above: mL/min/1.73m2 CKD-EP I Creatinine Equation (2020) Hematocrit Auto (Bld) [Volum e fraction]Ordered By: Kerwin Tamayo on 02-06-2025 Hematocrit (Bld) [Volume fraction] 33.8 % Low 40-54 [facility] Hemoglobin measurementOrdere d By: Kerwin Tamayo on 02-06-2025 Hemoglobin (Bld) [Mass/Vol] 11.0 g/dL Low 13.0-16.5 [facility] MCV (mean corpuscular volume ) determinationOrdered By: Kerwin Tamayo on 02-06-2025 MCV (RBC) [Entitic vol] 95.2 fL High 80-94 [facility] Mean corpuscular hemoglobin (MCH) determinationOrdered By: Kerwin Tamayo on 02-06-2025 MCH (RBC) [Entitic mass] 31.0 pg 27.0-32.0 [facility] Mean corpuscular hemoglobin concentration (MCHC) determinationOrdered By: Kerwin Tamayo on 02-06-2025 MCHC (RBC) [Mass/Vol] 32.5 g/dL 32-36 [facility] Mean platelet volume determi nationOrdered By: Kerwin Tamayo on 02-06-2025 Platelet mean volume (Bld) [Entitic vol] 11.2 fL 6.2-12.0 [facility] Platelet countOrdered By: Daniela Tamayo on 02-06-2025 Platelets (Bld) [#/Vol] 239 10*3/uL 150-450 [facility] Potassium (Unsp spec) [Mass/ Vol]Ordered By: Kerwin Tamayo on 02-06-2025 Potassium [Moles/Vol] 4.4 mmol/L 3.3-5.1 [facility] Potassium measurement (mass/ volume)Ordered By: Kerwin Tamayo on 02-06-2025 Potassium (Unsp spec) [Mass/Vol] 4.4 mmol/L 3.3-5.1 [facility] RBC Auto (Bld) [#/Vol]Ordere d By: Kerwin Tamayo on 02-06-2025 RBC (Bld) [#/Vol] 3.55 10*6/uL Low 4.6-6.2 [facility] Serum creatinine measurement (mass/volume)Ordered By: Kerwin Tamayo on 02-06-2025 Creatinine [Mass/Vol] 1.88 mg/dL High 0.70-1.20 [facility] Serum glucose measurement (m ass/volume)Ordered By: Kerwin Tamayo on 02-06-2025 Glucose [Mass/Vol] 287 mg/dL High 70-99 [facility] Serum or plasma calcium nikkie urement (mass/volume)Ordered By: Kerwin Tamayo on 02-06-2025 Calcium [Mass/Vol] 9.1 mg/dL 7.6-11.0 [facility] Serum or plasma urea nitroge n measurement (mass/volume)Ordered By: Kerwin Tamayo on 02-06-2025 Urea nitrogen [Mass/Vol] 44 mg/dL High 4-19 [facility] Sodium levelOrdered By: Aaron Tamayo on 02-06-2025 Sodium [Moles/Vol] 139 mmol/L 133-145 [facility] White blood cell (WBC) count Ordered By: Kerwin Tamayo on 02-06-2025 WBC (Bld) [#/Vol] 8.9 10*3/uL 4.4-11.0 [facility] CBC W Auto Differential pane l (Bld)on 11-06-2024 Basophils (Bld) [#/Vol] 0.08 x10*3/uL Normal 0.00-0.10 [facility] Comment on above: Performed By: #### 5 7021-8 #### MAGGI PARNELL ([id number]) [facility] ([facility]) [address] [place] [address] Basophils/100 WBC (Bld) 0.8 % Normal 0.0-2.0 [facility] Comment on above: Performed By: #### 7021-8 #### MAGGI PARNELL ([id number]) [facility] ([facility]) [address] [place] [address] 63[address] Eosinophils (Bld) [#/Vol] 0.42 x10*3/uL High 0.00-0. 40 [facility] Comment on above: Performed By: #### 7021-8 #### MAGGI PARNELL ([id number]) [facility] ([facility]) [address] [place] [address] 39055 Eosinophils/100 WBC (Bld) 4.4 % Normal 0.0-6.0 [facility] Comment on above: Performed By: #### 7021-8 #### MAGGI PARNELL ([id number]) [facility] ([facility]) [address] [place] [address] 96921 Erythrocyte distribution width (RBC) [Ratio] 14.5 % Normal 11.5-14.5 [facility] Comment on above: Performed By: #### 5 7021-8 #### MAGGI PARNELL ([id number]) [facility] ([facility]) [address] [place] [address] 26642 Hematocrit (Bld) [Volume fraction] 34.5 % Low 41.0-52.0 [facility] Comment on above: Performed By: #### 7021-8 #### MAGGI PARNELL ([id number]) [facility] ([facility]) [address] [place] [address] 74125 Hemoglobin (Bld) [Mass/Vol] 10.6 g/dL Low 13.5-17.5 [facility] Comment on above: Performed By: #### 5 7021-8 #### MAGGI PARNELL ([id number]) [facility] ([facility]) [address] [place] [address] 69206 Immature granulocytes (Bld) [#/Vol] 0.03 x10*3/uL Normal 0.00-0.50 [facility] Comment on above: Performed By: #### 5 7021-8 #### MAGGI PARNELL ([id number]) [facility] ([facility]) [address] [place] [address] 37349 Immature granulocytes/100 WBC (Bld) 0.3 % Normal 0.0-0.9 [facility] Comment on above: Result Comment: Arielle ture Granulocyte Count (IG) includes promyelocytes, myelocytes and metamyelocytes but does not include bands. Percent differential counts (%) should be interpreted in the context of the absolute cell counts (cells/UL). Performed By: #### 5 7021-8 #### MAGGI PARNELL ([id number]) [facility] ([facility]) [address] [place] [address] 70333 Lymphocytes (Bld) [#/Vol] 2.35 x10*3/uL Normal 0.80-3. 00 [facility] Comment on above: Performed By: #### 5 7021-8 #### MAGGI PARNELL ([id number]) [facility] ([facility]) [address] [place] [address] 72122 Lymphocytes/100 WBC (Bld) 24.5 % Normal 13.0-44.0 [facility] Comment on above: Performed By: #### 5 7021-8 #### MAGGI PARNELL ([id number]) [facility] ([facility]) [address] [place] [address] 78008 MCH (RBC) [Entitic mass] 30.3 pg Normal 26.0-34.0 [facility] Comment on above: Performed By: #### 5 7021-8 #### MAGGI PARNELL ([id number]) [facility] ([facility]) [address] [place] [address] 60941 MCHC (RBC) [Mass/Vol] 30.7 g/dL Low 32.0-36.0 [facility] Comment on above: Performed By: #### 5 7021-8 #### MAGGI PARNELL ([id number]) [facility] ([facility]) [address] [place] [address] 67048 MCV (RBC) [Entitic vol] 99 fL Normal 80-100 [facility] Comment on above: Performed By: #### 5 7021-8 #### MAGGI PARNELL ([id number]) [facility] ([facility]) [address] [place] [address] 33559 Monocytes (Bld) [#/Vol] 0.82 x10*3/uL High 0.05-0.80 [facility] Comment on above: Performed By: #### 5 7021-8 #### MAGGI PARNELL ([id number]) [facility] ([facility]) [address] [place] [address] 18868 Monocytes/100 WBC (Bld) 8.6 % Normal 2.0-10.0 [facility] Comment on above: Performed By: #### 5 7021-8 #### MAGGI PARNELL ([id number]) [facility] ([facility]) [address] [place] [address] 51676 Neutrophils (Bld) [#/Vol] 5.89 x10*3/uL High 1.60-5. 50 [facility] Comment on above: Result Comment: Perc ent differential counts (%) should be interpreted in the context of the absolute cell counts (cells/uL). Performed By: #### 5 7021-8 #### MAGGI PARNELL ([id number]) [facility] ([facility]) [address] [place] [address] 03687 Neutrophils/100 WBC (Bld) 61.4 % Normal 40.0-80.0 [facility] Comment on above: Performed By: #### 5 7021-8 #### MAGGI PARNELL ([id number]) [facility] ([facility]) [address] [place] [address] 69952 Nucleated RBC/100 WBC (Bld) [Ratio] 0.0 /100 WBCs Normal 0.0-0.0 [facility] Comment on above: Performed By: #### 5 7021-8 #### MAGGI PARNELL ([id number]) [facility] ([facility]) [address] [place] [address] 81482 Platelets (Bld) [#/Vol] 229 x10*3/uL Normal 150-450 [facility] Comment on above: Performed By: #### 5 7021-8 #### MAGGI PARNELL ([id number]) [facility] ([facility]) [address] [place] [address] 22739 RBC (Bld) [#/Vol] 3.50 x10*6/uL Low 4.50-5.90 [facility] Comment on above: Performed By: #### 5 7021-8 #### MAGGI PARNELL ([id number]) [facility] ([facility]) [address] [place] [address] 34817 WBC (Bld) [#/Vol] 9.6 x10*3/uL Normal 4.4-11.3 [facility] Comment on above: Performed By: #### 5 7021-8 #### MAGGI PARNELL ([id number]) [facility] ([facility]) [address] [place] [address] 73817 Comprehensive metabolic 2000 panelon 11-06-2024 Albumin BCP dye [Mass/Vol] 3.7 g/dL Normal 3.4-5.0 [facility] Comment on above: Performed By: #### 1 4959-1 #### ALENA Paredes ([id number]) [facility] ([facility]) [address] [place] [address] ALP [Catalytic activity/Vol] 68 U/L Normal 33-136 [facility] Comment on above: Performed By: #### 1 4959-1 #### ALENA Paredes ([id number]) [facility] ([facility]) [address] [place] [address] ALT With P-5'-P [Catalytic activity/Vol] 19 U/L Normal 10-52 [facility] Comment on above: Result Comment: Twila ents treated with Sulfasalazine may generate falsely decreased results for ALT. Performed By: #### 1 4959-1 #### ALENA Paredes ([id number]) [facility] ([facility]) [address] [place] [address] Anion gap [Moles/Vol] 12 mmol/L Normal 10-20 [facility] Comment on above: Performed By: #### 1 4959-1 #### ALENA Paredes ([id number]) [facility] ([facility]) [address] [place] [address] AST With P-5'-P [Catalytic activity/Vol] 19 U/L Normal 9-39 [facility] Comment on above: Performed By: #### 1 4959-1 #### ALENA Paredes ([id number]) [facility] ([facility]) [address] [place] [address] Bilirubin [Mass/Vol] 0.3 mg/dL Normal 0.0-1.2 [facility] Comment on above: Performed By: #### 1 4959-1 #### ALENA Paredes ([id number]) [facility] ([facility]) [address] [place] [address] Calcium [Mass/Vol] 8.9 mg/dL Normal 8.6-10.3 [facility] Comment on above: Performed By: #### 1 4959-1 #### ALENA Paredes ([id number]) [facility] ([facility]) [address] [place] [address]13 Chloride [Moles/Vol] 108 mmol/L High 98-107 [facility] Comment on above: Performed By: #### 1 4959-1 #### ALENA Paredes ([id number]) [facility] ([facility]) [address] [place] [address] CO2 [Moles/Vol] 23 mmol/L Normal 21-32 [facility] Comment on above: Performed By: #### 1 4959-1 #### ALENA Paredes ([id number]) [facility] ([facility]) [address] [place] [address] Creatinine [Mass/Vol] 2.37 mg/dL High 0.50-1.30 [facility] Comment on above: Performed By: #### 1 4959-1 #### ALENA DAVENPORTER L ([id number]) [facility] ([facility]) [address] [place] [address] Glomerular filtration rate/1.73 sq M.predicted 27 mL/min/1.73m*2 Low >60 [facility] Comment on above: Result Comment: Calc ulations of estimated GFR are performed using the 2020 CKD-EPI Study Refit equation without the race variable for the IDMS-Traceable creatinine methods. https://jasn.asnjournals.org/content//ASN.20 73731837 Performed By: #### 1 4959-1 #### ALENA CORREA L ([id number]) [facility] ([facility]) [address] [place] [address]36 Glucose [Mass/Vol] 95 mg/dL Normal 74-99 [facility] Comment on above: Performed By: #### 1 4959-1 #### ALENA TOLBERTMOTZER L ([id number]) [facility] ([facility]) [address] [place] [address] Potassium [Moles/Vol] 4.9 mmol/L Normal 3.5-5.3 [facility] Comment on above: Performed By: #### 1 4959-1 #### ALENA TOLBERTMOTZER L ([id number]) [facility] ([facility]) [address] [place] [address] Protein [Mass/Vol] 6.4 g/dL Normal 6.4-8.2 [facility] Comment on above: Performed By: #### 1 4959-1 #### ALENA TOLBERTMOTZER L ([id number]) [facility] ([facility]) [address] [place] [address] 44321 Sodium [Moles/Vol] 138 mmol/L Normal 136-145 [facility] Comment on above: Performed By: #### 1 4959-1 #### ALENA TOLBERTMOTZALIZA L ([id number]) [facility] ([facility]) [address] [place], [place] [address] Urea nitrogen [Mass/Vol] 48 mg/dL High 6-23 [facility] Comment on above: Performed By: #### 1 4959-1 #### ALENA Paredes ([id number]) [facility] ([facility]) [address] [place], [place] [address] HbA1c (Bld) [Mass fraction]o n 11-06-2024 Average glucose Estimated from glycated hemoglobin (Bld) [Mass/Vol] 220 mg/dL Normal Not Established [facility] Comment on above: Order Comment: Diagn osis of Spyegihy-HhmnjdEys-Ijmdlijf: < or = 5.6%Increased risk for developing diabetes: 5.7-6.4%Diagnostic of diabetes: > or = 6.5% Performed By: #### 1 4959-1 #### ALENA Paredes ([id number]) [facility] ([facility]) [address] [place], [place] [address] Hemoglobin A1c/Hemoglobin.to alcira 11-06-2024 HbA1c (Bld) [Mass fraction] 9.3 % High See comment [facility] Comment on above: Order Comment: Diagn osis of Ymeqntam-GipimiOrd-Nicffnfr: < or = 5.6%Increased risk for developing diabetes: 5.7-6.4%Diagnostic of diabetes: > or = 6.5% Performed By: #### 1 4959-1 #### ALENA Paredes ([id number]) [facility] ([facility]) [address] [place], [place] [address] Thyrotropinon 11-06-2024 TSH Qn 2.65 m[IU]/L Normal 0.44-3.98 [facility] Comment on above: Order Comment: TSH t esting is performed using different testing methodology at [facility] than at other [facility]. Direct result comparisons should only be made within the same method. Performed By: #### 1 4959-1 #### ALENA Paredes ([id number]) [facility] ([facility]) [address] [place] [address]782 Thyroxine.freeon 11-06-2024 Free T4 [Mass/Vol] 0.84 ng/dL Normal 0.61-1.12 [facility] Comment on above: Order Comment: Thyro xine Free testing is performed using different testing methodology at [facility] than at other [facility]. 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 [id number] Chloride [Moles/Vol] 108 mmol/L Normal 98-[address] 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 Performed By: #### 4 6124 #### LAB [address] [place], [place] [address] Moody Martinez M.D. 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 [id number] Anion gap [Moles/Vol] 17 mmol/L Normal 10-20 [facility] Comment on above: Order Comment: [facility] has implemented the eGFR calculation approach that does not have a coefficient for race that conforms to the NKF-ASN Task Force Recommendations. Performed By: #### 4 6124 #### LAB [address] [place] [address] Moody Martinez M.D. [id number] Calcium [Mass/Vol] 8.5 mg/dL Normal 8.4-10.2 [facility] Comment on above: Order Comment: [facility] has implemented the eGFR calculation approach that does not have a coefficient for race that conforms to the NKF-ASN Task Force Recommendations. Performed By: #### 4 6124 #### LAB [address] [place] [address] Moody Martinez M.D. [id number] Chloride [Moles/Vol] 108 mmol/L Normal 98-[address] [facility] Comment on above: Order Comment: [facility] has implemented the eGFR calculation approach that does not have a coefficient for race that conforms to the NKF-ASN Task Force Recommendations. Performed By: #### 4 6124 #### LAB [address] [place] [address] Moody Martinez M.D. [id number] Creatinine [Mass/Vol] 2.44 mg/dL High 0.80-1.30 [facility] Comment on above: Order Comment: [facility] has implemented the eGFR calculation approach that does not have a coefficient for race that conforms to the NKF-ASN Task Force Recommendations. Performed By: #### 4 6145 #### LAB [address] [place] [address] Moody Martinez M.D. [id number] EGFR 26 mL/min/1.73 m2 Low >=60 [facility] Comment on above: Order Comment: [facility] has implemented the eGFR calculation approach that does not have a coefficient for race that conforms to the NKF-ASN Task Force Recommendations. Result Comment: Albin mated GFR was calculated using the 2020 CKD-EPI creatinine equation. Performed By: #### 4 6124 #### LAB [address] [place] [address] Moody Martinez M.D. [id number] Glucose [Mass/Vol] 107 mg/dL High 65-99 [facility] Comment on above: Order Comment: [facility] has implemented the eGFR calculation approach that does not have a coefficient for race that conforms to the NKF-ASN Task Force Recommendations. Performed By: #### 4 6124 #### LAB [address] [place] [address] Moody Martinez M.D. [id number] HCO3 (Bld) [Moles/Vol] 18 mmol/L Low 21-32 [facility] Comment on above: Order Comment: [facility] has implemented the eGFR calculation approach that does not have a coefficient for race that conforms to the NKF-ASN Task Force Recommendations. Performed By: #### 4 6124 #### LAB [address] [place] [address] Moody Martinez M.D. [id number] Potassium [Moles/Vol] 4.1 mmol/L Normal 3.5-5.1 [facility] Comment on above: Order Comment: [facility] has implemented the eGFR calculation approach that does not have a coefficient for race that conforms to the NKF-ASN Task Force Recommendations. Performed By: #### 4 61 #### LAB [address] [place] [address] Moody Martinez M.D. [id number] Sodium [Moles/Vol] 139 mmol/L Normal 135-145 [facility] Comment on above: Order Comment: [facility] has implemented the eGFR calculation approach that does not have a coefficient for race that conforms to the NKF-ASN Task Force Recommendations. Performed By: #### 4 6124 #### LAB [address] [place], [place] [address] Moody Martinez M.D. [id number] Urea nitrogen [Mass/Vol] 85 mg/dL High 8-25 [facility] Comment on above: Order Comment: [facility] has implemented the eGFR calculation approach that does not have a coefficient for race that conforms to the NKF-ASN Task Force Recommendations. Performed By: #### 4 6124 #### LAB [address] [place] [address] Moody Martinez M.D. [id number] Urea nitrogen/Creatinine [Mass ratio] 34.8 mg/mg High 10.0-20.0 [facility] Comment on above: Order Comment: [facility] has implemented the eGFR calculation approach that does not have a coefficient for race that conforms to the NKF-ASN Task Force Recommendations. Performed By: #### 4 6124 #### LAB [address] [place] [address] Moody Martinez M.D. [id number] BETA-HYDROXYBUTYRATEon 10-28 BETA-HYDROXYBUTYRATE 0.1 mmol/L Normal 0.0-0.[address] [facility] Comment on above: Performed By: #### 4 5139 #### LAB [address] [place] [address] Moody Martinez M.D. [id number] BETA-HYDROXYBUTYRATE < Normal 0.0-0.[address] [facility] Comment on above: Performed By: #### 4 5139 #### LAB [address] [place], [place] [address] Moody Martinez M.D. [id number] Basic metabolic 2000 panelon 10-28-2024 Anion gap [Moles/Vol] 16 mmol/L 10 - 2 0 mmol/L [facility] Calcium [Mass/Vol] 8.5 mg/dL 8.4 - 10. 2 mg/dL [facility] Chloride [Moles/Vol] 108 mmol/L 98 - 10 8 mmol/L [facility] Creatinine [Mass/Vol] 2.31 mg/dL High 0.80 - 1.30 mg/dL [facility] GFR/1.73 sq M.predicted CKD-EPI (S/P/Bld) [Vol rate/Area] 28 Low - PINF [facility] Comment on above: Estimated GFR was ca lculated using the 2020 CKD-EPI creatinine equation. Glucose [Mass/Vol] 95 mg/dL 65 - 99 mg/dL [facility] HCO3 [Moles/Vol] 19 mmol/L Low 21 - 32 mmol/L [facility] Potassium [Moles/Vol] 4.1 mmol/L 3.5 - 5.1 mmol/L [facility] Sodium [Moles/Vol] 139 mmol/L 135 - 145 mmol/L [facility] Urea nitrogen [Mass/Vol] 82 mg/dL High 8 - 25 mg/d L [facility] Urea nitrogen/Creatinine [Mass ratio] 35.5 mg/mg High 10.0 - 20.0 [facility] has implemented the eGFR calculation approach that does not have a coefficient for race that conforms to the NKF-ASN Task Force Recommendations. [facility] Anion gap [Moles/Vol] 17 mmol/L 10 - 2 0 mmol/L [facility] Calcium [Mass/Vol] 8.5 mg/dL 8.4 - 10. 2 mg/dL [facility] Chloride [Moles/Vol] 108 mmol/L 98 - 10 8 mmol/L [facility] Creatinine [Mass/Vol] 2.44 mg/dL High 0.80 - 1.30 mg/dL [facility] GFR/1.73 sq M.predicted CKD-EPI (S/P/Bld) [Vol rate/Area] 26 Low - PINF [facility] Comment on above: Estimated GFR was ca lculated using the 2020 CKD-EPI creatinine equation. Glucose [Mass/Vol] 107 mg/dL High 65 - 99 mg/dL [facility] HCO3 [Moles/Vol] 18 mmol/L Low 21 - 32 mmol/L [facility] Potassium [Moles/Vol] 4.1 mmol/L 3.5 - 5.1 mmol/L [facility] Sodium [Moles/Vol] 139 mmol/L 135 - 145 mmol/L [facility] Urea nitrogen [Mass/Vol] 85 mg/dL High 8 - 25 mg/d L [facility] Urea nitrogen/Creatinine [Mass ratio] 34.8 mg/mg High 10.0 - 20.0 [facility] has implemented the eGFR calculation approach that does not have a coefficient for race that conforms to the NKF-ASN Task Force Recommendations. [facility] Anion gap [Moles/Vol] 16 mmol/L 10 - 2 0 mmol/L [facility] Calcium [Mass/Vol] 8.3 mg/dL Low 8.4 - 10. 2 mg/dL [facility] Chloride [Moles/Vol] 103 mmol/L 98 - 10 8 mmol/L [facility] Creatinine [Mass/Vol] 2.6 mg/dL High 0.80 - 1.30 mg/dL [facility] GFR/1.73 sq M.predicted CKD-EPI (S/P/Bld) [Vol rate/Area] 24 Low - PINF [facility] Comment on above: Estimated GFR was ca lculated using the 2020 CKD-EPI creatinine equation. Glucose [Mass/Vol] 495 mg/dL Critically high 65 - 99 mg/d L [facility] HCO3 [Moles/Vol] 18 mmol/L Low 21 - 32 mmol/L [facility] Potassium [Moles/Vol] 5 mmol/L 3.5 - 5.1 mmol/L [facility] Sodium [Moles/Vol] 132 mmol/L Low 135 - 145 mmol/L [facility] Urea nitrogen [Mass/Vol] 93 mg/dL High 8 - 25 mg/d L [facility] Urea nitrogen/Creatinine [Mass ratio] 35.8 mg/mg High 10.0 - 20.0 [facility] has implemented the eGFR calculation approach that does not have a coefficient for race that conforms to the NKF-ASN Task Force Recommendations. [facility] Beta hydroxybutyrate [Moles/ Vol]on 10-28-2024 Interpretation and review of laboratory results Normal [facility] Interpretation and review of laboratory results Normal [facility] Interpretation and review of laboratory results Abnormal [facility] Beta-Hydroxybutyrateon 10-28 Beta hydroxybutyrate [Moles/Vol] 0.1 mmol/L 0.0 - 0.3 mmol/L [facility] Beta hydroxybutyrate [Moles/Vol] mmol/L 0.0 - 0.3 mmol/L [facility] Beta hydroxybutyrate [Moles/Vol] 0.4 mmol/L High 0.0 - 0.3 mmol/L [facility] CBC Auto Differentialon 12-2 8-2024 Basophils (Bld) [#/Vol] 0.08 10*3/uL [facility] Basophils/100 WBC (Bld) 0.8 % [facility] Eosinophils (Bld) [#/Vol] 0.06 10*3/uL [facility] Eosinophils/100 WBC (Bld) 0.6 % [facility] Erythrocyte distribution width (RBC) [Entitic vol] 13.6 % 11.6 - 14.8 % [facility] Hematocrit (Bld) [Volume fraction] 29 % Low 41.0 - 53.0 % [facility] Hemoglobin (Bld) [Mass/Vol] 9.3 g/dL Low 13.5 - 17.5 g/dL [facility] Immature granulocytes (Bld) [#/Vol] 0.03 10*3/uL [facility] Immature granulocytes/100 WBC (Bld) 0.3 % [facility] Comment on above: The IG parameter is the percentage of metamyelocytes, myelocytes and promyelocytes. An immature granulocyte count (IG) of 1% or more suggests the possibility of infection, an IG count of 3% is very likely related to an infection. Interpretation and review of laboratory results Abnormal [facility] Lymphocytes (Bld) [#/Vol] 2.94 10*3/uL [facility] Lymphocytes/100 WBC (Bld) 28.7 % [facility] MCH (RBC) [Entitic mass] 30.3 pg 26. 0 - 34.0 pg [facility] MCHC (RBC) [Mass/Vol] 32.1 g/dL 31.0 - 37.0 g/dL [facility] MCV (RBC) [Entitic vol] 94.5 fL 80.0 - 100.0 fL [facility] Monocytes (Bld) [#/Vol] 1.02 10*3/uL High [facility] Monocytes/100 WBC (Bld) 10 % [facility] Neutrophils (Bld) [#/Vol] 6.12 10*3/uL [facility] Neutrophils/100 WBC (Bld) 59.6 % [facility] Nucleated RBC (Bld) [#/Vol] 0 10*3/uL [facility] Nucleated RBC/100 WBC (Bld) [Ratio] 0 % [facility] Platelet mean volume (Bld) [Entitic vol] 10.8 fL 9.4 - 12.4 fL [facility] Platelets (Bld) [#/Vol] 188 10*3/uL [facility] RBC (Bld) [#/Vol] 3.07 10*6/uL Low [facility] WBC (Bld) [#/Vol] 10.25 10*3/uL [facility] CBC WITH AUTO DIFFERENTIALon 10-28-2024 AUTO NRBC 0.0 % Normal [facility] Comment on above: Performed By: #### L [id number] #### LAB [address] [place] [address] Moody Martinez M.D. [id number] AUTO NRBC ABS COUNT 0.00 K/mcL Normal 0.00-0.00 [facility] Comment on above: Performed By: #### L [id number] #### LAB [address] [place] [address] Moody Martinez M.D. [id number] BASOPHILS ABSOLUTE COUNT 0.08 K/mcL Normal 0.00-0.30 [facility] Comment on above: Performed By: #### L [id number] #### LAB [address] [place] [address] Moody Martinez M.D. [id number] Basophils/100 WBC (Bld) 0.8 % Normal [facility] Comment on above: Performed By: #### L [id number] #### LAB [address] [place] [address] Moody Martinez M.D. [id number] Eosinophils (Bld) [#/Vol] 0.06 10*3/uL Normal 0.00-0.5 0 [facility] Comment on above: Performed By: #### L [id number] #### LAB [address] [place] [address] Moody Martinez M.D. [id number] Eosinophils/100 WBC (Bld) 0.6 % [facility] Comment on above: Performed By: #### L [id number] #### LAB [address] [place] [address] Moody Martinez M.D. [id number] Erythrocyte distribution width (RBC) [Ratio] 13.6 % Normal 11.6-14.8 [facility] Comment on above: Performed By: #### L [id number] #### LAB [address] [place] [address] Moody Martinez M.D. [id number] Hematocrit (Bld) [Volume fraction] 29.0 % Low 41.0-53.0 [facility] Comment on above: Performed By: #### L [id number] #### LAB [address] [place] [address] Moody Martinez M.D. [id number] Hemoglobin (Bld) [Mass/Vol] 9.3 g/dL Low 13.5-17.5 [facility] Comment on above: Performed By: #### L [id number] #### LAB [address] [place] [address] Moody Martinez M.D. [id number] IG ABSOLUTE 0.03 K/mcL Normal 0.00-0.30 [facility] Comment on above: Performed By: #### L [id number] #### LAB [address] [place] [address] Moody Martinez M.D. [id number] IG PERCENT 0.30 % [facility] Comment on above: Result Comment: The IG parameter is the percentage of metamyelocytes, myelocytes and promyelocytes. An immature granulocyte count (IG) of 1% or more suggests the possibility of infection, an IG count of 3% is very likely related to an infection. Performed By: #### L [id number] #### LAB [address] [place] [address] Moody Martinez M.D. [id number] Lymphocytes (Bld) [#/Vol] 2.94 10*3/uL Normal 0.90-4.0 0 [facility] Comment on above: Performed By: #### L [id number] #### LAB [address] [place] [address] Moody Martinez M.D. [id number] Lymphocytes/100 WBC (Bld) 28.7 % Normal [facility] Comment on above: Performed By: #### L [id number] #### LAB [address] [place] [address] Moody Martinez M.D. [id number] MCH (RBC) [Entitic mass] 30.3 pg Normal 26.0-34.0 [facility] Comment on above: Performed By: #### L [id number] #### LAB [address] [place] [address] Moody Martinez M.D. [id number] MCV (RBC) [Entitic vol] 94.5 fL Normal 80.0-100.0 [facility] Comment on above: Performed By: #### L [id number] #### LAB [address] [place] [address] Moody Martinez M.D. [id number] MEAN CORPUSCULAR HEMOGLOBIN CONC 32.1 g/dL Normal 31.0-37.0 [facility] Comment on above: Performed By: #### L [id number] #### LAB [address] [place] [address] Moody Martinez M.D. [id number] Monocytes (Bld) [#/Vol] 1.02 10*3/uL High 0.30-0.90 [facility] Comment on above: Performed By: #### L [id number] #### LAB [address] [place] [address] Moody Martinez M.D. [id number] Monocytes/100 WBC (Bld) 10.0 % Normal [facility] Comment on above: Performed By: #### L [id number] #### LAB [address] [place] [address] Moody Martinez M.D. [id number] NEUTROPHILS ABSOLUTE COUNT 6.12 K/mcL Normal 1.70-7.00 [facility] Comment on above: Performed By: #### L [id number] #### LAB [address] [place] [address] Moody Martinez M.D. [id number] Neutrophils/100 WBC (Bld) 59.6 % Normal [facility] Comment on above: Performed By: #### L [id number] #### MH LAB [address] [place] [address] Moody Martinez M.D. [id number] Platelet mean volume (Bld) [Entitic vol] 10.8 fL Normal 9.4-12.4 [facility] Comment on above: Performed By: #### L [id number] #### LAB [address] [place] [address] Moody Martinez M.D. [id number] Platelets (Bld) [#/Vol] 188 10*3/uL Normal 150-400 [facility] Comment on above: Performed By: #### L [id number] #### MH LAB [address] [place] [address] Moody Martinez M.D. [id number] RBC (Bld) [#/Vol] 3.07 10*6/uL Low 4.50-5.90 [facility] Comment on above: Performed By: #### L [id number] #### MH LAB [address] [place] [address] Moody Martinez M.D. [id number] WBC (Bld) [#/Vol] 10.25 10*3/uL Normal 4.50-11.[address] [facility] Comment on above: Performed By: #### L [id number] #### LAB [address] [place] [address] Moody Martinez M.D. [id number] CONSULTon 10-28-2024 CONSULT Attestation signed by Pedro West MD at 10/29/2024 9:27 AM Patient was evaluated by Keeley Patton CNP. Patient ID: Patient Name: Enoc Armando Admit Date: 10/27/2024 MR #: [id number] [facility] #: [id number] : 1945 Current location: [facility] Physicians: Ryley Jeter MD (Family); Dr Benitez [...] with chronic low back pain presented to [facility] on 10/27/2024 for an elective left heart [...] Diagnosed in 1994. Patient is managed by [facility] endocrinology for his type 1 diabetes. He is currently taking Admelog insulin: 10 units at mealtime Lantus insulin: 12 units at bedtime Current monitoring regimen: home blood tests - 3 times daily Complications of diabetes include: Retinopathy: Negative Nephropathy: Positive Peripheral Neuropathy: Positive Autonomic Neuropathy: Negative Allergies: Allergies Allergen Reactions Rrdyemb-Tnh-Tzr Reductase Inhibitors Muscle cramps Home Medications: Outpatient [...] MG table (more content not included)... Normal [facility] Glucose (Bld) [Mass/Vol]on 12-29-2023 Glucose [Mass/Vol] 321 mg/dL High 65 - 99 mg/dL [facility] Interpretation and review of laboratory results Abnormal [facility] Glucose [Mass/Vol] 288 mg/dL High 65 - 99 mg/dL [facility] Interpretation and review of laboratory results Abnormal [facility] Glucose [Mass/Vol] 130 mg/dL High 65 - 99 mg/dL [facility] Interpretation and review of laboratory results Abnormal [facility] Glucose [Mass/Vol] 55 mg/dL Critically low 65 - 99 mg/dL [facility] Interpretation and review of laboratory results Abnormal [facility] Critical result acted upon time of test. Test performed at bedside. [facility] Glucose [Mass/Vol] 85 mg/dL 65 - 99 mg/dL [facility] Interpretation and review of laboratory results Normal [facility] Glucose [Mass/Vol] 111 mg/dL High 65 - 99 mg/dL [facility] Interpretation and review of laboratory results Abnormal [facility] Glucose [Mass/Vol] 69 mg/dL 65 - 99 mg/dL [facility] Interpretation and review of laboratory results Normal [facility] Glucose [Mass/Vol] 76 mg/dL 65 - 99 mg/dL [facility] Interpretation and review of laboratory results Normal [facility] Glucose [Mass/Vol] 94 mg/dL 65 - 99 mg/dL [facility] Interpretation and review of laboratory results Normal [facility] Glucose [Mass/Vol] 115 mg/dL High 65 - 99 mg/dL [facility] Interpretation and review of laboratory results Abnormal [facility] Glucose [Mass/Vol] 168 mg/dL High 65 - 99 mg/dL [facility] Interpretation and review of laboratory results Abnormal [facility] Glucose [Mass/Vol] 215 mg/dL High 65 - 99 mg/dL [facility] Interpretation and review of laboratory results Abnormal [facility] Glucose [Mass/Vol] 336 mg/dL High 65 - 99 mg/dL [facility] Interpretation and review of laboratory results Abnormal [facility] Glucose [Mass/Vol] 443 mg/dL Critically high 65 - 99 mg/d L [facility] Interpretation and review of laboratory results Abnormal [facility] Critical result acted upon time of test. Test performed at bedside. [facility] HbA1c (Bld) [Mass fraction]o n 10-28-2024 Average glucose Estimated from glycated hemoglobin (Bld) [Mass/Vol] 237 mg/dL High 74 - 114 mg/dL [facility] Interpretation and review of laboratory results Abnormal [facility] Hemoglobin A1con 10-28-2024 HbA1c (Bld) [Mass fraction] 9.9 % High 4.2 - 5.6 % [facility] MAGNESIUM LEVELon 10-28-2024 Magnesium [Mass/Vol] 2.6 mg/dL High 1.6-2.[address] [facility] Comment on above: Performed By: #### 4 [id number] #### MH LAB [address] [place], [place] [address] Moody Martinez M.D. [id number] Magnesium [Mass/Vol] 2.6 mg/dL High 1.6-2.[address] [facility] Comment on above: Performed By: #### 4 [id number] #### LAB [address] [place], [place] [address] oMody Martinez M.D. [id number] Magnesium Levelon 10-28-2024 Magnesium [Mass/Vol] 2.6 mg/dL High 1.6 - 2 .4 mg/dL [facility] Magnesium [Mass/Vol] 2.6 mg/dL High 1.6 - 2 .4 mg/dL [facility] Magnesium [Mass/Vol] 2.6 mg/dL High 1.6 - 2 .4 mg/dL [facility] No Panel Informationon 10-28 Interpretation and review of laboratory results Abnormal [facility] Interpretation and review of laboratory results Abnormal [facility] Interpretation and review of laboratory results Abnormal [facility] PHOSPHORUSon 10-28-2024 Phosphate [Mass/Vol] 4.7 mg/dL High 2.3-3.[address] [facility] Comment on above: Performed By: #### 4 [id number] ####[facility] [address] [address] Moody Martinez M.D. [id number] POC GLUCOSE - [facility] 024 Glucose [Mass/Vol] 321 mg/dL High [address] [place] [address] Comment on above: Performed By: #### L [id number] #### [facility] [address] [address] Moody Martinez M.D. [id number] Glucose [Mass/Vol] 288 mg/dL High [address] [place] [address] Comment on above: Performed By: #### 4 6932 ####[facility] [address] [address] Moody Martinez M.D. [id number] Glucose [Mass/Vol] 130 mg/dL High [address] [place] [address] Comment on above: Performed By: #### 4 6932 ####[facility] [address] [address] Moody Martinez M.D. [id number] Glucose [Mass/Vol] 55 mg/dL Off scale low [address] [place] [address] Comment on above: Order Comment: Criti christian result acted upon time of test. Test performed at bedside. Performed By: #### 4 6997 ####[facility] [address] [address] Moody Martinez M.D. [id number] Glucose [Mass/Vol] 85 mg/dL Normal [address] [place] [address] Comment on above: Performed By: #### 4 6918 ####[facility] [address] [address] Moody Martinez M.D. [id number] Glucose [Mass/Vol] 111 mg/dL High [address] [place] [address] Comment on above: Performed By: #### L [id number] #### LAB [address] [address] Moody Martinez M.D. [id number] Glucose [Mass/Vol] 69 mg/dL Normal [address] [place] [address] Comment on above: Performed By: #### 4 [id number] #### LAB [address] [address] Moody Martinez M.D. [id number] Glucose [Mass/Vol] 76 mg/dL Normal [address] [place] [address] Comment on above: Performed By: #### 4 [id number] #### LAB [address] [address] Moody Martinez M.D. [id number] Glucose [Mass/Vol] 94 mg/dL Normal [address] [place] [address] Comment on above: Performed By: #### 4 [id number] #### LAB [address] [address] Moody Martinez M.D. [id number] Glucose [Mass/Vol] 115 mg/dL High [address] [place] [address] Comment on above: Performed By: #### 4 6932 #### LAB [address] [address] Moody Martinez M.D. [id number] Glucose [Mass/Vol] 168 mg/dL High [address] [place] [address] Comment on above: Performed By: #### L [id number] #### LAB [address] [address] Moody Martinez M.D. [id number] Glucose [Mass/Vol] 215 mg/dL High [address] [place] [address] Comment on above: Performed By: #### 4 [id number] #### LAB [address] [address] Moody Martinez M.D. [id number] Glucose [Mass/Vol] 336 mg/dL High 65-99 [facility] Comment on above: Performed By: #### 4 [id number] #### LAB [address] [place], [place] [address] Moody Martinez M.D. [id number] Phosphoruson 10-28-2024 Phosphate [Mass/Vol] 4.7 mg/dL High 2.3 - 3 .7 mg/dL [facility] Phosphate [Mass/Vol] 4.4 mg/dL High 2.3 - 3 .7 mg/dL [facility] ABORH VERIFICATIONon 024 ABO and Rh group Nom (Bld) Blood group A Rh(D) positive Normal [facility] ABO and Rh group Nom (Bld) ABO/Rh Verification [facility] Comment on above: Result Comment: Twila ent's ABO/Rh is verified. ABOR Verificationon 024 ABO and Rh group Nom (Bld) Blood group A Rh(D) positive [facility] ABO and Rh group Nom (Bld) ABO/Rh Verification [facility] Comment on above: Patient's ABO/Rh is verified. [facility] AMYLASEon 10-27-2024 Amylase [Catalytic activity/Vol] 26.8 U/L Normal 13.0-53.0 [facility] Comment on above: Performed By: #### 4 [id number] #### LAB [address] [place], [place] [address] Moody Martinez M.D. [id number] APTTon 10-27-2024 aPTT Coag (Bld) [Time] 74 s High [facility] aPTT Coag (Bld) [Time] 74 s High 23-34 [facility] Comment on above: Order Comment: Thera peutic range for APTT's is 68 - 104 seconds Performed By: #### 4 5113 #### LAB [address] [place], [place] [address] Moody Martinez M.D. [id number] Amylaseon 10-27-2024 Amylase.pancreatic [Catalytic activity/Vol] 26.8 U/L 13.0 - 53.0 U/L [facility] BASIC METABOLIC PANELon 10-02 Anion gap [Moles/Vol] 16 mmol/L Normal 10-20 [facility] Comment on above: Order Comment: [facility] Services has implemented the eGFR calculation approach that does not have a coefficient for race that conforms to the NKF-ASN Task Force Recommendations. Performed By: #### 4 6932 #### LAB [address] [place], [place] [address] Moody Martinez M.D. [id number] Calcium [Mass/Vol] 8.3 mg/dL Low 8.4-10.2 [facility] Comment on above: Order Comment: [facility] has implemented the eGFR calculation approach that does not have a coefficient for race that conforms to the NKF-ASN Task Force Recommendations. Performed By: #### 4 6932 #### LAB [address] [place], [place] [address] Moody Martinez M.D. [id number] Chloride [Moles/Vol] 103 mmol/L Normal 98-[address] [facility] Comment on above: Order Comment: [facility] has implemented the eGFR calculation approach that does not have a coefficient for race that conforms to the NKF-ASN Task Force Recommendations. Performed By: #### 4 6932 #### LAB [address] [place], [place] [address] Moody Martinez M.D. [id number] Creatinine [Mass/Vol] 2.60 mg/dL High 0.80-1.30 [facility] Comment on above: Order Comment: [facility] has implemented the eGFR calculation approach that does not have a coefficient for race that conforms to the NKF-ASN Task Force Recommendations. Performed By: #### 4 6932 #### LAB [address] [place], [place] [address] Moody Martinez M.D. [id number] EGFR 24 mL/min/1.73 m2 Low >=60 [facility] Comment on above: Order Comment: [facility] Services has implemented the eGFR calculation approach that does not have a coefficient for race that conforms to the NKF-ASN Task Force Recommendations. Result Comment: Albin mated GFR was calculated using the 2020 CKD-EPI creatinine equation. Performed By: #### 4 6932 #### [facility] LAB [address] [address] Moody Martinez M.D. [id number] Glucose [Mass/Vol] 495 mg/dL Off scale high 65-99 [facility] Comment on above: Order Comment: [facility] Services has implemented the eGFR calculation approach that does not have a coefficient for race that conforms to the NKF-ASN Task Force Recommendations. Performed By: #### 4 6932 #### LAB [address] [address] Moody Martinez M.D. [id number] HCO3 (Bld) [Moles/Vol] 18 mmol/L Low 21-32 [facility] Comment on above: Order Comment: [facility] Services has implemented the eGFR calculation approach that does not have a coefficient for race that conforms to the NKF-ASN Task Force Recommendations. Performed By: #### 4 6932 #### LAB [address] [address] Moody Martinez M.D. [id number] Potassium [Moles/Vol] 5.0 mmol/L Normal 3.5-5.1 [facility] Comment on above: Order Comment: [facility] has implemented the eGFR calculation approach that does not have a coefficient for race that conforms to the NKF-ASN Task Force Recommendations. Performed By: #### 4 6935 #### MH LAB [address] [address] Moody Martinez M.D. [id number] Sodium [Moles/Vol] 132 mmol/L Low 135-145 [facility] Comment on above: Order Comment: [facility] has implemented the eGFR calculation approach that does not have a coefficient for race that conforms to the NKF-ASN Task Force Recommendations. Performed By: #### 4 6994 #### MH LAB [address] [address] Moody Martinez M.D. [id number] Urea nitrogen [Mass/Vol] 93 mg/dL High 8-25 [facility] Comment on above: Order Comment: [facility] has implemented the eGFR calculation approach that does not have a coefficient for race that conforms to the NKF-ASN Task Force Recommendations. Performed By: #### 4 6932 #### LAB [address] [address] Moody Martinez M.D. [id number] Urea nitrogen/Creatinine [Mass ratio] 35.8 mg/mg High 10.0-20.0 [facility] Comment on above: Order Comment: [facility] Services has implemented the eGFR calculation approach that does not have a coefficient for race that conforms to the NKF-ASN Task Force Recommendations. Performed By: #### 4 6932 #### LAB [address] [address] Moody Martinez M.D. [id number] BETA-HYDROXYBUTYRATEon 10-27 BETA-HYDROXYBUTYRATE 0.4 mmol/L High 0.0-0.[address] [facility] Comment on above: Performed By: #### 4 5139 #### LAB [address] [address] Moody Martinez M.D. [id number] BETA-HYDROXYBUTYRATE 2.3 mmol/L High 0.0-0.[address] [facility] Comment on above: Performed By: #### 4 5139 #### LAB [address] [address] Moody Martinez M.D. [id number] BETA-HYDROXYBUTYRATE 0.7 mmol/L High 0.0-0.[address] [facility] Comment on above: Performed By: #### 4 6932 #### LAB [address] [address] Moody Martinez M.D. [id number] BILIRUBIN, DIRECTon 10-27-20 24 BILIRUBIN, DIRECT < Normal 0.0-0.4 [facility] Comment on above: Performed By: #### 4 5145 #### LAB [address] [address] Moody Martinez M.D. [id number] Beta hydroxybutyrate [Moles/ Vol]on 10-27-2024 Interpretation and review of laboratory results Abnormal [facility] Interpretation and review of laboratory results Abnormal [facility] Beta-Hydroxybutyrateon 10-27 Beta hydroxybutyrate [Moles/Vol] 2.3 mmol/L High 0.0 - 0.3 mmol/L [facility] Beta hydroxybutyrate [Moles/Vol] 0.7 mmol/L High 0.0 - 0.3 mmol/L [facility] Bilirubin.direct [Mass/Vol]o n 10-27-2024 Bilirubin.conjugated [Mass/Vol] mg/dL 0.0 - 0.4 mg/dL [facility] Interpretation and review of laboratory results Normal [facility] Blood type and Indirect anti body screen panel (Bld)on 10-27-2024 ABO and Rh group Nom (Bld) Blood group A Rh(D) positive [facility] Blood group antibody screen Ql Negative [facility] Specimen Expires 10/30/2024 23:59 EST [facility] CBC Auto Differentialon 10-02 Basophils (Bld) [#/Vol] 0.04 10*3/uL [facility] Basophils/100 WBC (Bld) 0.5 % [facility] Eosinophils (Bld) [#/Vol] 0 10*3/uL [facility] Eosinophils/100 WBC (Bld) 0 % [facility] Erythrocyte distribution width (RBC) [Entitic vol] 13.7 % 11.6 - 14.8 % [facility] Hematocrit (Bld) [Volume fraction] 34.8 % Low 41.0 - 53.0 % [facility] Hemoglobin (Bld) [Mass/Vol] 11.2 g/dL Low 13.5 - 17.5 g/dL [facility] Immature granulocytes (Bld) [#/Vol] 0.04 10*3/uL [facility] Immature granulocytes/100 WBC (Bld) 0.5 % [facility] Comment on above: The IG parameter is the percentage of metamyelocytes, myelocytes and promyelocytes. An immature granulocyte count (IG) of 1% or more suggests the possibility of infection, an IG count of 3% is very likely related to an infection. Interpretation and review of laboratory results Abnormal [facility] Lymphocytes (Bld) [#/Vol] 1.2 10*3/uL [facility] Lymphocytes/100 WBC (Bld) 13.8 % [facility] MCH (RBC) [Entitic mass] 30 pg 26. 0 - 34.0 pg [facility] MCHC (RBC) [Mass/Vol] 32.2 g/dL 31.0 - 37.0 g/dL [facility] MCV (RBC) [Entitic vol] 93.3 fL 80.0 - 100.0 fL [facility] Monocytes (Bld) [#/Vol] 0.11 10*3/uL Low [facility] Monocytes/100 WBC (Bld) 1.3 % [facility] Neutrophils (Bld) [#/Vol] 7.32 10*3/uL High [facility] Neutrophils/100 WBC (Bld) 83.9 % [facility] Nucleated RBC (Bld) [#/Vol] 0 10*3/uL [facility] Nucleated RBC/100 WBC (Bld) [Ratio] 0 % [facility] Platelet mean volume (Bld) [Entitic vol] 11.2 fL 9.4 - 12.4 fL [facility] Platelets (Bld) [#/Vol] 234 10*3/uL [facility] RBC (Bld) [#/Vol] 3.73 10*6/uL Low [facility] WBC (Bld) [#/Vol] 8.71 10*3/uL [facility] CBC WITH AUTO DIFFERENTIALon 10-27-2024 AUTO NRBC 0.0 % Normal [facility] Comment on above: Performed By: #### L [id number] #### LAB [address] [place], [place] [address] Moody Martinez M.D. [id number] AUTO NRBC ABS COUNT 0.00 K/mcL Normal 0.00-0.00 [facility] Comment on above: Performed By: #### L [id number] ####[facility] LAB [address] [place], [place] [address] Moody Martinez M.D. [id number] BASOPHILS ABSOLUTE COUNT 0.04 K/mcL Normal 0.00-0.30 [facility] Comment on above: Performed By: #### L [id number] #### LAB [address] [place], [place] [address] Moody Martinez M.D. [id number] Basophils/100 WBC (Bld) 0.5 % Normal [facility] Comment on above: Performed By: #### L [id number] #### LAB [address] [address] Moody Martinez M.D. [id number] Eosinophils (Bld) [#/Vol] 0.00 10*3/uL Normal 0.00-0.5 0 [facility] Comment on above: Performed By: #### L [id number] #### LAB [address] [address] Moody Martinez M.D. [id number] Eosinophils/100 WBC (Bld) 0.0 % Normal [facility] Comment on above: Performed By: #### L [id number] #### LAB [address] [address] Moody Martinez M.D. [id number] Erythrocyte distribution width (RBC) [Ratio] 13.7 % Normal 11.6-14.8 [facility] Comment on above: Performed By: #### L [id number] #### LAB [address] [address] Moody Martinez M.D. [id number] Hematocrit (Bld) [Volume fraction] 34.8 % Low 41.0-53.0 [facility] Comment on above: Performed By: #### L [id number] #### LAB [address] [address] Moody Martinez M.D. [id number] Hemoglobin (Bld) [Mass/Vol] 11.2 g/dL Low 13.5-17.5 [facility] Comment on above: Performed By: #### L [id number] #### LAB [address] [address] Moody Martinez M.D. [id number] IG ABSOLUTE 0.04 K/mcL Normal 0.00-0.30 [facility] Comment on above: Performed By: #### L [id number] #### LAB [address] [place] [address] Moody Martinez M.D. [id number] IG PERCENT 0.50 % Normal [facility] Comment on above: Result Comment: The IG parameter is the percentage of metamyelocytes, myelocytes and promyelocytes. An immature granulocyte count (IG) of 1% or more suggests the possibility of infection, an IG count of 3% is very likely related to an infection. Performed By: #### L [id number] #### LAB [address] [place] [address] Moody Martinez M.D. [id number] Lymphocytes (Bld) [#/Vol] 1.20 10*3/uL Normal 0.90-4.0 0 [facility] Comment on above: Performed By: #### L [id number] #### LAB [address] [address] Moody Martinez M.D. [id number] Lymphocytes/100 WBC (Bld) 13.8 % Normal [facility] Comment on above: Performed By: #### L [id number] #### LAB [address] [place] [address] Moody Martinez M.D. [id number] MCH (RBC) [Entitic mass] 30.0 pg Normal 26.0-34.0 [facility] Comment on above: Performed By: #### L [id number] #### LAB [address] [place] [address] Moody Martinez M.D. [id number] MCV (RBC) [Entitic vol] 93.3 fL Normal 80.0-100.0 [facility] Comment on above: Performed By: #### L [id number] #### LAB [address] [place] [address] Moody Martinez M.D. [id number] MEAN CORPUSCULAR HEMOGLOBIN CONC 32.2 g/dL Normal 31.0-37.0 [facility] Comment on above: Performed By: #### L [id number] #### LAB [address] [place] [address] Moody Martinez M.D. [id number] Monocytes (Bld) [#/Vol] 0.11 10*3/uL Low 0.30-0.90 [facility] Comment on above: Performed By: #### L [id number] ####MH LAB [address] [address] Moody Martinez M.D. [id number] Monocytes/100 WBC (Bld) 1.3 % Normal [facility] Comment on above: Performed By: #### L [id number] #### LAB [address] [address] Moody Martinez M.D. [id number] NEUTROPHILS ABSOLUTE COUNT 7.32 K/mcL High 1.70-7.00 [facility] Comment on above: Performed By: #### L [id number] #### LAB [address] [address] Moody Martinez M.D. [id number] Neutrophils/100 WBC (Bld) 83.9 % Normal [facility] Comment on above: Performed By: #### L [id number] #### LAB [address] [address] Moody Martinez M.D. [id number] Platelet mean volume (Bld) [Entitic vol] 11.2 fL Normal 9.4-12.4 [facility] Comment on above: Performed By: #### L [id number] #### LAB [address] [place] [address] Moody Martinez M.D. [id number] Platelets (Bld) [#/Vol] 234 10*3/uL Normal 150-400 [facility] Comment on above: Performed By: #### L [id number] ####MH LAB [address] [address] Moody Martinez M.D. [id number] RBC (Bld) [#/Vol] 3.73 10*6/uL Low 4.50-5.90 [facility] Comment on above: Performed By: #### L [id number] #### LAB [address] [place] [address] Moody Martinez M.D. [id number] WBC (Bld) [#/Vol] 8.71 10*3/uL Normal 4.50-11.00 [facility] Comment on above: Performed By: #### L [id number] #### LAB [address] [address] Moody Martinez M.D. [id number] CITRATED TEG (CARDIAC) WITH HEPARINASE PANEL MARIETTA MARCELINO WAIALUAcam 10-27-2024 (CFF-FLEV) CITRATED FUNCTIONAL FIBRINOGEN -EST. FUNCTIONAL FIBRINOGEN LEVEL 381.4 mg/dL Normal 278.0-581.0 [facility] Comment on above: Performed By: #### L [id number] #### LAB [address] [address] Moody Martinez M.D. [id number] (CFF-MA) CITRATED FUNCTIONAL FIBRINOGEN - [place] 20.9 mm Normal 15.0-32.0 [facility] Comment on above: Performed By: #### L [id number] #### LAB [address] [address] Moody Martinez M.D. [id number] (CK-ANGLE) CITRATED KAOLIN-ALPHA ANGLE 73.2 deg Normal 63.0-78.0 [facility] Comment on above: Performed By: #### L [id number] #### LAB [address] [address] Moody Martinez M.D. [id number] (CK-K) CITRATED KAOLIN-SPEED OF CLOT FORMATION 1.3 min Normal 0.8-2.1 [facility] Comment on above: Performed By: #### L [id number] #### LAB [address] [address] Moody Martinez M.D. [id number] (CK-MA) CITRATED KAOLIN-MAXIMUM CLOT STRENGTH 50.9 mm Low 52.0-69.0 [facility] Comment on above: Performed By: #### L [id number] #### LAB [address] [address] Moody Martinez M.D. [id number] (CK-R) CITRATED KAOLIN - REACTION TIME 16.4 min High 4.6-9.1 [facility] Comment on above: Performed By: #### L [id number] ####[facility] LAB [address] [address] Moody Martinez M.D. [id number] (CKH-R) CITRATED KAOLIN WITH HEPARINASE-REACTION TIME 7.6 min Normal 4.3-8.3 [facility] Comment on above: Performed By: #### L [id number] ####MH LAB [address] [address] Moody Martinez M.D. [id number] (EXPERIMENTAL PREFLIGHT MECHANIC-MA) CITRATED RAPID TEG - [place] 62.3 mm Normal 52.0-70.0 [facility] Comment on above: Performed By: #### L [id number] #### LAB [address] [address] Moody Martinez M.D. [id number] COMPREHENSIVE METABOLIC PANE [facility] 10-27-2024 Albumin [Mass/Vol] 3.4 g/dL Normal 3.2-5.2 [facility] Comment on above: Order Comment: [facility] Services has implemented the eGFR calculation approach that does not have a coefficient for race that conforms to the NKF-ASN Task Force Recommendations. Performed By: #### 4 6126 #### LAB [address] [address] Moody Martinez M.D. [id number] ALP [Catalytic activity/Vol] 86 U/L Normal 40-150 [facility] Comment on above: Order Comment: [facility] has implemented the eGFR calculation approach that does not have a coefficient for race that conforms to the NKF-ASN Task Force Recommendations. Performed By: #### 4 6126 ####MH LAB [address] [address] Moody Martinez M.D. [id number] ALT [Catalytic activity/Vol] 13 U/L Normal 0-50 U/L [facility] Comment on above: Order Comment: [facility] Services has implemented the eGFR calculation approach that does not have a coefficient for race that conforms to the NKF-ASN Task Force Recommendations. Performed By: #### 4 6126 #### LAB [address] [address] Moody Martinez M.D. [id number] Anion gap [Moles/Vol] 20 mmol/L Normal 10-20 [facility] Comment on above: Order Comment: [facility] has implemented the eGFR calculation approach that does not have a coefficient for race that conforms to the NKF-ASN Task Force Recommendations. Performed By: #### 4 6126 #### LAB [address] [address] Moody Martinez M.D. [id number] AST [Catalytic activity/Vol] 12 U/L Normal 0-50 U/L [facility] Comment on above: Order Comment: [facility] has implemented the eGFR calculation approach that does not have a coefficient for race that conforms to the NKF-ASN Task Force Recommendations. Performed By: #### 4 6126 #### LAB [address] [address] Moody Martinez M.D. [id number] Bilirubin [Mass/Vol] 0.3 mg/dL Normal 0.0-1.[address] [facility] Comment on above: Order Comment: [facility] has implemented the eGFR calculation approach that does not have a coefficient for race that conforms to the NKF-ASN Task Force Recommendations. Performed By: #### 4 6126 #### LAB [address] [address] Moody Martinez M.D. [id number] Calcium [Mass/Vol] 8.4 mg/dL Normal 8.4-10.2 [facility] Comment on above: Order Comment: [facility] has implemented the eGFR calculation approach that does not have a coefficient for race that conforms to the NKF-ASN Task Force Recommendations. Performed By: #### 4 6126 #### LAB [address] [address] Moody Martinez M.D. [id number] Chloride [Moles/Vol] 99 mmol/L Normal 98-[address] [facility] Comment on above: Order Comment: [facility] Services has implemented the eGFR calculation approach that does not have a coefficient for race that conforms to the NKF-ASN Task Force Recommendations. Performed By: #### 4 6126 #### LAB [address] [place], [place] [address] Moody Martinez M.D. [id number] Creatinine [Mass/Vol] 2.55 mg/dL High 0.80-1.30 [facility] Comment on above: Order Comment: [facility] has implemented the eGFR calculation approach that does not have a coefficient for race that conforms to the NKF-ASN Task Force Recommendations. Performed By: #### 4 6126 #### LAB [address] [id number] Moody Martinez M.D. [id number] EGFR 25 mL/min/1.73 m2 Low >=60 [facility] Comment on above: Order Comment: [facility] has implemented the eGFR calculation approach that does not have a coefficient for race that conforms to the NKF-ASN Task Force Recommendations. Result Comment: Albin mated GFR was calculated using the 2020 CKD-EPI creatinine equation. Performed By: #### 4 6126 #### LAB [address] [place], [place] [address] Moody Martinez M.D. [id number] Glucose [Mass/Vol] 564 mg/dL Off scale high 65-99 [facility] Comment on above: Order Comment: [facility] has implemented the eGFR calculation approach that does not have a coefficient for race that conforms to the NKF-ASN Task Force Recommendations. Performed By: #### 4 6126 #### LAB [address] [id number] Moody Martinez M.D. [id number] HCO3 (Bld) [Moles/Vol] 15 mmol/L Low 21-32 [facility] Comment on above: Order Comment: [facility] has implemented the eGFR calculation approach that does not have a coefficient for race that conforms to the NKF-ASN Task Force Recommendations. Performed By: #### 4 6126 #### LAB [address] [id number] Moody Martinez M.D. [id number] Potassium [Moles/Vol] 5.9 mmol/L High 3.5-5.1 [facility] Comment on above: Order Comment: [facility] Services has implemented the eGFR calculation approach that does not have a coefficient for race that conforms to the NKF-ASN Task Force Recommendations. Performed By: #### 4 6126 #### LAB [address] [address] Moody Martinez M.D. [id number] Protein [Mass/Vol] 5.8 g/dL Low 6.0-8.0 [facility] Comment on above: Order Comment: [facility] Laboratory [facility] has implemented the eGFR calculation approach that does not have a coefficient for race that conforms to the NKF-ASN Task Force Recommendations. Performed By: #### 4 6126 #### LAB [address] [address] Moody Martinez M.D. [id number] Sodium [Moles/Vol] 128 mmol/L Low 135-145 [facility] Comment on above: Order Comment: [facility] Laboratory [facility] has implemented the eGFR calculation approach that does not have a coefficient for race that conforms to the NKF-ASN Task Force Recommendations. Performed By: #### 4 6126 #### LAB [address] [address] Moody Martinez M.D. [id number] Urea nitrogen [Mass/Vol] 93 mg/dL High 8-25 [facility] Comment on above: Order Comment: [facility] Laboratory [facility] has implemented the eGFR calculation approach that does not have a coefficient for race that conforms to the NKF-ASN Task Force Recommendations. Performed By: #### 4 6126 #### LAB [address] [address] Moody Martinez M.D. [id number] Urea nitrogen/Creatinine [Mass ratio] 36.5 mg/mg High 10.0-20.0 [facility] Comment on above: Order Comment: [facility] Services has implemented the eGFR calculation approach that does not have a coefficient for race that conforms to the NKF-ASN Task Force Recommendations. Performed By: #### 4 6126 #### LAB [address] [address] Moody Martinez M.D. [id number] Albumin [Mass/Vol] 3.5 g/dL Normal 3.2-5.2 [facility] Comment on above: Order Comment: [facility] has implemented the eGFR calculation approach that does not have a coefficient for race that conforms to the NKF-ASN Task Force Recommendations. Performed By: #### 4 6126 #### LAB [address] [address] Moody Martinez M.D. [id number] ALP [Catalytic activity/Vol] 92 U/L Normal 40-150 [facility] Comment on above: Order Comment: [facility] Laboratory [facility] has implemented the eGFR calculation approach that does not have a coefficient for race that conforms to the NKF-ASN Task Force Recommendations. Performed By: #### 4 6126 #### LAB [address] [address] Moody Martinez M.D. [id number] ALT [Catalytic activity/Vol] 21 U/L Normal 0-50 U/L [facility] Comment on above: Order Comment: [facility] has implemented the eGFR calculation approach that does not have a coefficient for race that conforms to the NKF-ASN Task Force Recommendations. Performed By: #### 4 6126 #### LAB [address] [address] Moody Martinez M.D. [id number] Anion gap [Moles/Vol] 20 mmol/L Normal 10-20 [facility] Comment on above: Order Comment: [facility] has implemented the eGFR calculation approach that does not have a coefficient for race that conforms to the NKF-ASN Task Force Recommendations. Performed By: #### 4 6126 #### LAB [address] [id number] Moody Martinez M.D. [id number] AST [Catalytic activity/Vol] 14 U/L Normal 0-50 U/L [facility] Comment on above: Order Comment: [facility] Services has implemented the eGFR calculation approach that does not have a coefficient for race that conforms to the NKF-ASN Task Force Recommendations. Performed By: #### 4 6126 #### LAB [address] [address] Moody Martinez M.D. [id number] Bilirubin [Mass/Vol] 0.3 mg/dL Normal 0.0-1.[address] [facility] Comment on above: Order Comment: [facility] has implemented the eGFR calculation approach that does not have a coefficient for race that conforms to the NKF-ASN Task Force Recommendations. Performed By: #### 4 6126 #### LAB [address] [address] Moody Martinez M.D. [id number] Calcium [Mass/Vol] 8.7 mg/dL Normal 8.4-10.2 [facility] Comment on above: Order Comment: [facility] has implemented the eGFR calculation approach that does not have a coefficient for race that conforms to the NKF-ASN Task Force Recommendations. Performed By: #### 4 6126 #### LAB [address] [address] Moody Martinez M.D. [id number] Chloride [Moles/Vol] 99 mmol/L Normal 98-[address] [facility] Comment on above: Order Comment: [facility] Services has implemented the eGFR calculation approach that does not have a coefficient for race that conforms to the NKF-ASN Task Force Recommendations. Performed By: #### 4 6126 #### LAB [address] [address] Moody Martinez M.D. [id number] Creatinine [Mass/Vol] 2.60 mg/dL High 0.80-1.30 [facility] Comment on above: Order Comment: [facility] Services has implemented the eGFR calculation approach that does not have a coefficient for race that conforms to the NKF-ASN Task Force Recommendations. Performed By: #### 4 6126 #### LAB [address] [address] Moody Martinez M.D. [id number] EGFR 24 mL/min/1.73 m2 Low >=60 [facility] Comment on above: Order Comment: [facility] Services has implemented the eGFR calculation approach that does not have a coefficient for race that conforms to the NKF-ASN Task Force Recommendations. Result Comment: Albin mated GFR was calculated using the 2020 CKD-EPI creatinine equation. Performed By: #### 4 6126 #### LAB [address] [address] Moody Martinez M.D. [id number] Glucose [Mass/Vol] 467 mg/dL Off scale high 65-99 [facility] Comment on above: Order Comment: [facility] has implemented the eGFR calculation approach that does not have a coefficient for race that conforms to the NKF-ASN Task Force Recommendations. Performed By: #### 4 6126 #### LAB [address] [address] Moody Martinez M.D. [id number] HCO3 (Bld) [Moles/Vol] 17 mmol/L Low 21-32 [facility] Comment on above: Order Comment: [facility] has implemented the eGFR calculation approach that does not have a coefficient for race that conforms to the NKF-ASN Task Force Recommendations. Performed By: #### 4 6126 #### LAB [address] [address] Moody Martinez M.D. [id number] Potassium [Moles/Vol] 6.3 mmol/L Off scale high 3.5-5.1 [facility] Comment on above: Order Comment: [facility] Laboratory [facility] has implemented the eGFR calculation approach that does not have a coefficient for race that conforms to the NKF-ASN Task Force Recommendations. Performed By: #### 4 6126 #### LAB [address] [address] Moody Martinez M.D. [id number] Protein [Mass/Vol] 5.6 g/dL Low 6.0-8.0 [facility] Comment on above: Order Comment: [facility] has implemented the eGFR calculation approach that does not have a coefficient for race that conforms to the NKF-ASN Task Force Recommendations. Performed By: #### 4 6126 #### LAB [address] [address] Moody Martinez M.D. [id number] Sodium [Moles/Vol] 130 mmol/L Low 135-145 [facility] Comment on above: Order Comment: [facility] has implemented the eGFR calculation approach that does not have a coefficient for race that conforms to the NKF-ASN Task Force Recommendations. Performed By: #### 4 6126 #### LAB [address] [address] Moody Martinez M.D. [id number] Urea nitrogen [Mass/Vol] 92 mg/dL High 8-25 [facility] Comment on above: Order Comment: [facility] has implemented the eGFR calculation approach that does not have a coefficient for race that conforms to the NKF-ASN Task Force Recommendations. Performed By: #### 4 6126 #### LAB [address] [place], [place] [address] Moody Martinez M.D. [id number] Urea nitrogen/Creatinine [Mass ratio] 35.4 mg/mg High 10.0-20.0 [facility] Comment on above: Order Comment: [facility] has implemented the eGFR calculation approach that does not have a coefficient for race that conforms to the NKF-ASN Task Force Recommendations. Performed By: #### 4 6126 #### LAB [address] [id number] Moody Martinez M.D. [id number] CORONARY ANGIOGRAPHYon 10-27 CORONARY ANGIOGRAPHY This is [...] significant gradient across the aortic valve. Normal [facility] CT CHEST WITHOUT CONTRASTon 10-27-2024 CT CHEST [...] the subcutaneous tissues of the chest wall. [employer] Workstation ID: [id number] Dictated by: KAHLIL VARGHESE on WedOct 27, 2024 1:25:27 PM EST Transcribed by: WARREN PRITCHARD on WedOct 27, 2024 1:31:49 PM EST Finalized by: KAHLIL VARGHESE on WedOct 27, 2024 3:01:00 PM EST Normal [facility] Comment on above: Order Comment: Injur y/Trauma [...] the chest wall. [employer]AR[employer] Workstation ID: [id number] Fonem[employer] EXAMINATION: CT CHEST WITHOUT CONTRAST HISTORY: ORDERING [...] STRUCTURES: No aggressive bone lesions. Intact sternum. [employer] Kahlil Varghese, DO - 10/27/2024 EXAMINATION: CT [...] the subcutaneous tissues of the chest wall. [employer] Workstation ID: [id number] [facility] Radiology Study observation (narrative) [facility] Cardiac Catheterizationon Impression: Multivessel complex calcified [...] the aortic valve. FUJI SYNAPSE CV [facility] Citrated TEG (Cardiac) with HeparinaseOrdered By: Burton Zendejas on 10-27-2024 (CFF-FLEV) Cit. Func.Fib.Estimated Func.Fibrinogen Level 381.4 mg/dL 278.0 - 581.0 mg/dL [facility] Clot angle TEG (Bld) [Angle] 73.2 deg 63.0 - 78.0 deg [facility] Clot formation TEG (Bld) [Time] 1.3 min 0.8 - 2.1 min [facility] Clotting time after addition of heparinase TEG (Bld) 7.6 min 4.3 - 8.3 min [facility] Clotting time.intrinsic coagulation system activated Rotational TEG (Bld) 16.4 min High 4.6 - 9.1 min [facility] Interpretation and review of laboratory results Abnormal [facility] Maximum clot firmness TEG (Bld) [Length] 50.9 mm Low 52.0 - 69.0 mm [facility] Maximum clot firmness TEG (Bld) [Length] 20.9 mm 15.0 - 32.0 mm [facility] Maximum clot firmness.extrinsic coagulation system activated Rotational TEG (Bld) [Length] 62.3 mm 52.0 - 70.0 mm [facility] Comprehensive metabolic 2000 panelOrdered By: Ya Izaguirre on 10-27-2024 Albumin [Mass/Vol] 3.4 g/dL 3.2 - 5.2 g/dL [facility] ALP [Catalytic activity/Vol] 86 U/L 40 - 150 U/L [facility] ALT [Catalytic activity/Vol] 13 U/L 0-50 U/L [facility] Anion gap [Moles/Vol] 20 mmol/L 10 - 2 0 mmol/L [facility] AST [Catalytic activity/Vol] 12 U/L 0-50 U/L [facility] Bilirubin [Mass/Vol] 0.3 mg/dL 0.0 - 1 .3 mg/dL [facility] Calcium [Mass/Vol] 8.4 mg/dL 8.4 - 10. 2 mg/dL [facility] Chloride [Moles/Vol] 99 mmol/L 98 - 10 8 mmol/L [facility] Creatinine [Mass/Vol] 2.55 mg/dL High 0.80 - 1.30 mg/dL [facility] GFR/1.73 sq M.predicted CKD-EPI (S/P/Bld) [Vol rate/Area] 25 Low - PINF [facility] Comment on above: Estimated GFR was ca lculated using the 2020 CKD-EPI creatinine equation. Glucose [Mass/Vol] 564 mg/dL Critically high 65 - 99 mg/d L [facility] HCO3 [Moles/Vol] 15 mmol/L Low 21 - 32 mmol/L [facility] Potassium [Moles/Vol] 5.9 mmol/L High 3.5 - 5.1 mmol/L [facility] Protein [Mass/Vol] 5.8 g/dL Low 6.0 - 8.0 g/dL [facility] Sodium [Moles/Vol] 128 mmol/L Low 135 - 145 mmol/L [facility] Urea nitrogen [Mass/Vol] 93 mg/dL High 8 - 25 mg/d L [facility] Urea nitrogen/Creatinine [Mass ratio] 36.5 mg/mg High 10.0 - 20.0 [facility] Laboratory Services has implemented the eGFR calculation approach that does not have a coefficient for race that conforms to the NKF-ASN Task Force Recommendations. [facility] Comprehensive metabolic 2000 panelOrdered By: Rosalia March on 10-27-2024 Albumin [Mass/Vol] 3.5 g/dL 3.2 - 5.2 g/dL [facility] ALP [Catalytic activity/Vol] 92 U/L 40 - 150 U/L [facility] ALT [Catalytic activity/Vol] 21 U/L 0-50 U/L [facility] Anion gap [Moles/Vol] 20 mmol/L 10 - 2 0 mmol/L [facility] AST [Catalytic activity/Vol] 14 U/L 0-50 U/L [facility] Bilirubin [Mass/Vol] 0.3 mg/dL 0.0 - 1 .3 mg/dL [facility] Calcium [Mass/Vol] 8.7 mg/dL 8.4 - 10. 2 mg/dL [facility] Chloride [Moles/Vol] 99 mmol/L 98 - 10 8 mmol/L [facility] Creatinine [Mass/Vol] 2.6 mg/dL High 0.80 - 1.30 mg/dL [facility] GFR/1.73 sq M.predicted CKD-EPI (S/P/Bld) [Vol rate/Area] 24 Low - PINF [facility] Comment on above: Estimated GFR was ca lculated using the 2020 CKD-EPI creatinine equation. Glucose [Mass/Vol] 467 mg/dL Critically high 65 - 99 mg/d L [facility] HCO3 [Moles/Vol] 17 mmol/L Low 21 - 32 mmol/L [facility] Interpretation and review of laboratory results Abnormal [facility] Potassium [Moles/Vol] 6.3 mmol/L Critically high 3.5 - 5.1 mmol/L [facility] Protein [Mass/Vol] 5.6 g/dL Low 6.0 - 8.0 g/dL [facility] Sodium [Moles/Vol] 130 mmol/L Low 135 - 145 mmol/L [facility] Urea nitrogen [Mass/Vol] 92 mg/dL High 8 - 25 mg/d L [facility] Urea nitrogen/Creatinine [Mass ratio] 35.4 mg/mg High 10.0 - 20.0 [facility] Laboratory Services has implemented the eGFR calculation approach that does not have a coefficient for race that conforms to the NKF-ASN Task Force Recommendations. [facility] ECHOCARDIOGRAM COMPLETEon ECHOCARDIOGRAM COMPLETE Patient Info Name: ENOC ARMANDO Age: 78 years : 1945 Gender: Male Ht: 170 cm Wt: 66 kg BSA: 1.77 m2 HR: 63 bpm BP: 148 / 55 mmHg Heart Rhythm: Sinus Arrhythmia Technical Quality: Fair Exam Date: 10/27/2024 1:22 PM Patient Status: Outpatient Maintenance Groundman: Jyoti Perez RDCS Exam Type: ECHOCARDIOGRAM COMPLETE Study Info Indications - Abnormal electrocardiogram [ECG] [EKG] Referring Physician: MARIE Arriaga; [id number] BMI: 22.71 kg/m2 Summary 1. Normal LV [...] Factors Hypertension: Yes Dyslipidemia: Yes Myocardial Infarction (ND): No Congestive Heart Failure (CHF): Hx CHF [...] mmHg MV VTI 56 cm MV Decel [place] 850 cm/s2 MV PHT 90 ms MV [...] Average 7. (more content not included)... Normal [facility] Echo completeOrdered By: Fauzia Garay on 10-27-2024 Aortic valve area 3.[address] [facility] Work Phone: [phone] AV mean gradient 4 mmHg [facility] Work Phone: [phone] AV peak gradient 7.1824 mmHg [facility] Work Phone: [phone] 70.2889 % [facility] Work Phone: [phone] [facility] Work Phone: [phone] Echo completeon 10-27-2024 Patient Info Name: ENOC ARMANDO Age: 78 years : 1945 Gender: Male Ht: 170 cm Wt: 66 kg BSA: 1.77 m2 HR: 63 bpm BP: 148 / 55 mmHg Heart Rhythm: Sinus Arrhythmia Technical Quality: Fair Exam Date: 10/27/2024 1:22 PM Patient Status: Outpatient Maintenance Groundman: Jyoti Perez RDCS Exam Type: ECHOCARDIOGRAM COMPLETE Study Info Indications - Abnormal electrocardiogram [ECG] [EKG] Referring Physician: MARIE Arriaga; [id number] BMI: 22.71 kg/m2 Summary 1. Normal LV [...] Factors Hypertension: Yes Dyslipidemia: Yes Myocardial Infarction (ND): No Congestive Heart Failure (CHF): Hx CHF [...] Date: 10/27/2024 1:22 PM Patient Status: Outpatient Maintenance Groundman: Jyoti Perez RDCS Exam Type: ECHOCARDIOGRAM COMPLETE Study Info Indications - Abnormal electrocardiogram [ECG] [EKG] Referring Physician: MARIE Arriaga; [id number] BMI: 22.71 kg/m2 Summary 1. Normal LV [...] Factors Hypertension: Yes Dyslipidemia: Yes Myocardial Infarction (ND): No Congestive Heart Failure (CHF): Hx CHF [...] mmHg MV VTI 56 cm MV [place] [place] 850 cm/s2 MV PHT 90 ms MV [...] 6.3 cm/ (more content not included)... [facility] Glucose (Bld) [Mass/Vol]on 12-28-2023 Glucose [Mass/Vol] mg/dL Critically high 65 - 99 mg/d L [facility] Interpretation and review of laboratory results Abnormal [facility] Critical result acted upon time of test. Test performed at bedside. [facility] Glucose [Mass/Vol] mg/dL Critically high 65 - 99 mg/d L [facility] Interpretation and review of laboratory results Abnormal [facility] Critical result acted upon time of test. Test performed at bedside. [facility] Glucose [Mass/Vol] 369 mg/dL High 65 - 99 mg/dL [facility] Interpretation and review of laboratory results Abnormal [facility] Glucose [Mass/Vol] 381 mg/dL High 65 - 99 mg/dL [facility] Interpretation and review of laboratory results Abnormal [facility] Glucose [Mass/Vol] 385 mg/dL High 65 - 99 mg/dL [facility] Interpretation and review of laboratory results Abnormal [facility] Glucose [Mass/Vol] 498 mg/dL Critically high 65 - 99 mg/d [facility] Interpretation and review of laboratory results Abnormal [facility] Critical result acted upon time of test. Test performed at bedside. [facility] Glucose [Mass/Vol] 279 mg/dL High 65 - 99 mg/dL [facility] Interpretation and review of laboratory results Abnormal [facility] HEMOGLOBIN A1Con 10-27-2024 Glucose [Mass/Vol] 237 mg/dL High [address] [place] [address] Comment on above: Performed By: #### 4 8202 ####[facility] [address] [address] Moody Martinez M.D. [id number] HbA1c (Bld) [Mass fraction] 9.9 % [facility] [address] Comment on above: Performed By: #### 4 8202 ####[facility] [address] [place], [place] [address] Moody Martinez M.D. [id number] Glucose [Mass/Vol] 232 mg/dL [address] Comment on above: Performed By: #### 4 8202 ####[facility] [address] [place], [place] [address] Moody Martinez M.D. [id number] HbA1c (Bld) [Mass fraction] 9.7 % [facility] Comment on above: Performed By: #### 4 8202 ####[facility] [address] [place], [place] [address] Moody Martinez M.D. [id number] HbA1c (Bld) [Mass fraction]o n 10-27-2024 Average glucose Estimated from glycated hemoglobin (Bld) [Mass/Vol] 232 mg/dL High 74 - 114 mg/dL [facility] Interpretation and review of laboratory results Abnormal [facility] Hemoglobin A1con 10-27-2024 HbA1c (Bld) [Mass fraction] 9.7 % High 4.2 - 5.6 % [facility] INR Coag (PPP) [Relative concha e]on 10-27-2024 Interpretation and review of laboratory results Normal [facility] PT Coag (PPP) [Time] 14.3 s [facility] During the induction phase of oral anticoagulation, the INR may not reflect the anticoagulation status of the patient. Therapeutic ranges for INR's are: Most clinical situations: INR 2.0-3.0 Mechanical Prosthetic Valve: INR 2.5-3.5 Critical: INR >5.0 [facility] LACTIC ACID, PLASMAon 2023 LACTIC ACID, PLASMA 1.6 mmol/L Normal 0.6-2.0 [facility] Comment on above: Performed By: #### 4 6932 #### LAB [address] [address] Moody Martinez M.D. [id number] LIPASEon 10-27-2024 Lipase [Catalytic activity/Vol] 56 U/L Normal 15-65 [facility] Comment on above: Performed By: #### 4 6086 ####[facility] [address] [address] Moody Martinez M.D. [id number] Lactate [Moles/Vol]on 2023 Interpretation and review of laboratory results Normal [facility] Lactic Acid, Plasmaon 2023 Lactate [Moles/Vol] 1.6 mmol/L 0.6 - 2. 0 mmol/L [facility] Lipaseon 10-27-2024 Lipase [Catalytic activity/Vol] 56 U/L 15 - 65 U/L [facility] MAGNESIUM LEVELon 10-27-2024 Magnesium [Mass/Vol] 2.6 mg/dL High 1.6-2.[address] [facility] Comment on above: Performed By: #### 4 6109 #### LAB [address] [address] Moody Martinez M.D. [id number] Magnesium [Mass/Vol] 2.5 mg/dL High 1.6-2.[address] [facility] Comment on above: Performed By: #### 4 6109 ####[facility] [address] [address] Moody Martinez M.D. [id number] Magnesium Levelon 10-27-2024 Magnesium [Mass/Vol] 2.5 mg/dL High 1.6 - 2 .4 mg/dL [facility] No Panel InformationOrdered By: Ya Izaguirre on 10-27-2024 Interpretation and review of laboratory results Abnormal [facility] No Panel Informationon 10-27 Interpretation and review of laboratory results Normal [facility] PHOSPHORUSon 10-27-2024 Phosphate [Mass/Vol] 4.4 mg/dL High 2.3-3.[address] [facility] Comment on above: Performed By: #### 4 6299 ####[facility] [address] [address] Moody Martinez M.D. [id number] Phosphate [Mass/Vol] 5.2 mg/dL High 2.3-3.[address] [facility] Comment on above: Performed By: #### 4 4014 #### [facility] [address] [address] Moody Martinez M.D. [id number] POC ARTERIAL BLOOD GAS PANEL -[facility] 10-27-2024 [id number] 19.6 mm Hg [facility] Comment on above: Performed By: #### 4 8716 ####[facility] [address] [address] Moody Martinez M.D. [id number] BASE EXCESS, ARTERIAL -7.5 Low -2.0-2.0 [facility] Comment on above: Performed By: #### 4 8716 ####[facility] [address] [place] [address] Moody Martinez M.D. [id number] FIO2 21 [facility] Comment on above: Performed By: #### 4 [id number] ####[facility] [address] [address] Moody Martinez M.D. [id number] HCO3 (Bld) [Moles/Vol] 17.5 mmol/L Low 22.0-26.0 [facility] Comment on above: Performed By: #### 4 [id number] #### LAB [address] [address] Moody Martinez M.D. [id number] Hematocrit (Bld) [Volume fraction] 30.0 % Low 41.0-53.0 [facility] Comment on above: Performed By: #### 4 [id number] ####[facility] [address] [address] Moody Martinez M.D. [id number] Hemoglobin (Bld) [Mass/Vol] 9.8 g/dL Low 13.5-17.5 [facility] Comment on above: Performed By: #### 4 [id number] ####[facility] [address] [place] [address] Moody Martinez M.D. [id number] Oxygen saturation in Blood 97.3 % Normal 92.0-99.0 [facility] Comment on above: Performed By: #### 4 [id number] ####[facility] [address] [place] [address] Moody Martinez M.D. [id number] PCO2 ARTERIAL 32.9 mm Hg Low 35.0-45.0 [facility] Comment on above: Performed By: #### 4 [id number] #### LAB [address] [place] [address] Moody Martinez M.D. [id number] PH ARTERIAL 7.33 Low 7.35-7.45 [facility] Comment on above: Performed By: #### 4 [id number] ####[facility] [address] [place] [address] Moody Martinez M.D. [id number] PO2 ARTERIAL 85 mm Hg Normal 75-85 [facility] Comment on above: Performed By: #### 4 [id number] ####[facility] [address] [address] Moody Martinez M.D. [id number] SPECIMEN SOURCE RADIANCE Radial, left Normal [facility] Comment on above: Performed By: #### 4 8716 #### LAB [address] [address] Moody Martinez M.D. [id number] POC Arterial Blood Gas Panel -[facility] 10-27-2024 Alveolar-arterial oxygen Partial pressure difference 19.6 mm Hg [facility] Base excess Calc (Bld) [Moles/Vol] -7.5000 mmol/L Low -2.0 - 2.0 [facility] CO2 (Bld) [Partial pressure] 32.9 mm[Hg] Low [facility] Hematocrit (BldA) [Volume fraction] 30 % Low 41.0 - 53.0 % [facility] Inhaled oxygen concentration 21 % [facility] Interpretation and review of laboratory results Abnormal [facility] Oxygen (Bld) [Partial pressure] 85 mm[Hg] [facility] pH (Bld) 7.33 [pH] Low 7.35 - 7.45 [facility] Specimen source Nom (Unsp spec) Radial, left [facility] POC GLUCOSE - [facility] 024 Glucose [Mass/Vol] 443 mg/dL Off scale high [address] [place] [address] Comment on above: Order Comment: Criti christian result acted upon time of test. Test performed at bedside. Performed By: #### 4 6932 ####[facility] [address] [address] Moody Martinez M.D. [id number] POC GLUCOSE > Off scale [address] Comment on above: Order Comment: Criti christian result acted upon time of test. Test performed at bedside. Performed By: #### 4 6932 ####[facility] [address] [address] Moody Martinez M.D. [id number] POC GLUCOSE > Off scale [address] Comment on above: Order Comment: Criti christian result acted upon time of test. Test performed at bedside. Performed By: #### 4 6932 ####[facility] [address] [address] Moody Martinez M.D. [id number] POC GLUCOSE > Off scale [address] Comment on above: Order Comment: Criti christian result acted upon time of test. Test performed at bedside. Performed By: #### 4 6932 #### LAB [address] [address] Moody Martinez M.D. [id number] Glucose [Mass/Vol] 369 mg/dL [address] Comment on above: Performed By: #### 4 6932 #### LAB [address] [address] Moody Martinez M.D. [id number] Glucose [Mass/Vol] 381 mg/dL [address] Comment on above: Performed By: #### 4 6932 #### LAB [address] [address] Moody Martinez M.D. [id number] Glucose [Mass/Vol] 385 mg/dL [address] Comment on above: Performed By: #### 4 6932 #### LAB [address] [address] Moody Martinez M.D. [id number] Glucose [Mass/Vol] 498 mg/dL Off scale [address] Comment on above: Order Comment: Criti christian result acted upon time of test. Test performed at bedside. Performed By: #### 4 6932 #### LAB [address] [address] Moody Martinez M.D. [id number] Glucose [Mass/Vol] 279 mg/dL [address] Comment on above: Performed By: #### L [id number] #### [facility] [address] [address] Moody Martinez M.D. [id number] POTASSIUM LEVELon 10-27-2024 Potassium [Moles/Vol] 3.4 mmol/L Low 3.5-5.1 [facility] Comment on above: Performed By: #### 4 6351 #### LAB [address] [address] Moody Martinez M.D. [id number] PREALBUMINon 10-27-2024 Prealbumin [Mass/Vol] 15.9 mg/dL Low 20.0-40.0 [facility] Comment on above: Performed By: #### 4 4014 #### LAB [address] [place], [place] [address] Moody Martinez M.D. [id number] PT/INRon 10-27-2024 INR Coag (PPP) [Relative time] 1.1 {INR} 0.8 - 1.1 [facility] INR Coag (PPP) [Relative time] 1.1 {INR} Normal 0.8-1.1 [facility] Comment on above: Order Comment: Janet good the induction phase of oral anticoagulation, the INR may not reflect the anticoagulation status of the patient. Therapeutic ranges for INR's are:Most clinical situations: INR 2.0-3.0Mechanical Prosthetic Valve: INR 2.5-3.5Critical: INR >5.0 Performed By: #### 4 6932 #### LAB [address] [place], [place] [address] Moody Martinez M.D. [id number] PT Coag (PPP) [Time] 14.3 s Normal 11.8-14.[address] [facility] Comment on above: Order Comment: Janet good the induction phase of oral anticoagulation, the INR may not reflect the anticoagulation status of the patient. Therapeutic ranges for INR's are:Most clinical situations: INR 2.0-3.0Mechanical Prosthetic Valve: INR 2.5-3.5Critical: INR >5.0 Performed By: #### 4 6932 #### LAB [address] [place], [place] [address] Moody Martinez M.D. [id number] Phosphoruson 10-27-2024 Phosphate [Mass/Vol] 5.2 mg/dL High 2.3 - 3 .7 mg/dL [facility] Potassium Levelon 10-27-2024 Potassium [Moles/Vol] 3.4 mmol/L Low 3.5 - 5.1 mmol/L [facility] Potassium [Moles/Vol]on 10-02 Interpretation and review of laboratory results Abnormal [facility] Prealbuminon 10-27-2024 Prealbumin [Mass/Vol] 15.9 mg/dL Low 20.0 - 40.0 mg/dL [facility] Prealbumin [Mass/Vol]on 10-02 Interpretation and review of laboratory results Abnormal [facility] Segmental Doppler Lower Extr emity Arterialon 10-27-2024 Patient Info Name: ENOC ARMANDO Age: 78 years : 1945 Gender: Male Exam Date: 10/27/2024 9:50 AM Patient Status: Outpatient Needle Molder: Ya Jacob Referring Physician: ZOILA POLLARD; Indications I73.9 - Peripheral vascular disease, unspecified Procedure Description 69642 Limited bilateral noninvasive physiologic studies of upper [...] Nguyen DO on 10/27/2024 01:14 PM [facility] Flo Abdi III, DO - 10/27/2024 Patient Info Name: ENOC ARMANDO Age: 78 years : 1945 Gender: Male Exam Date: 10/27/2024 9:50 AM Patient Status: Outpatient Needle Molder: Ya Jacob Referring Physician: ZOILA POLLARD; Indications I73.9 - Peripheral vascular disease, unspecified Procedure Description 07355 Limited bilateral noninvasive physiologic studies of upper [...] Nguyen DO on 10/27/2024 01:14 PM [facility] T4, [facility] 10-27-2024 Free T4 [Mass/Vol] 1.3 ng/dL Normal 0.7-1.7 [facility] Comment on above: Performed By: #### 4 6567 ####[facility] [address] [place], [place] [address] Moody Martinez M.D. [id number] [facility] Free T4 [Mass/Vol] 1.3 ng/dL 0.7 - 1.7 ng/dL [facility] TEG PLATELET MAPPING ([facility]on 10-27-2024 (AA-%AGGREGATION) AA PERCENT AGGREGATION 12.1 % Low 89.0-100.0 [facility] Comment on above: Performed By: #### L [id number] ####[facility] [address] [place], [place] [address] Moody Martinez M.D. [id number] (AA-%INHIBITION) AA PERCENT INHIBITION 87.9 % High 0.0-11.0 [facility] Comment on above: Performed By: #### L [id number] #### LAB [address] [address] Moody Martinez M.D. [id number] (AA-MA) AA MAXIMUM AMPLITUDE 14.7 mm Low 51.0-71.0 [facility] Comment on above: Performed By: #### L [id number] #### LAB [address] [address] Moody Martinez M.D. [id number] (ACTF-MA) ACTIVATOR F MAXIMUM AMPLITUDE 7.8 mm Normal 2.0-19.0 [facility] Comment on above: Performed By: #### L [id number] #### LAB [address] [address] Moody Martinez M.D. [id number] (ADP-%AGGREGATION) ADP PERCENT AGGREGATION 61.2 % Low 83.0-100.0 [facility] Comment on above: Performed By: #### L [id number] #### LAB [address] [address] Moody Martinez M.D. [id number] (ADP-%INHIBITION) ADP PERCENT INHIBITION 38.8 % High 0.0-17.0 [facility] Comment on above: Performed By: #### L [id number] #### LAB [address] [address] Moody Martinez M.D. [id number] (ADP-MA) ADP MAXIMUM AMPLITUDE 42.7 mm Low 45.0-69.0 [facility] Comment on above: Performed By: #### L [id number] #### LAB [address] [address] Moody Martinez M.D. [id number] (HKH-MA) KAOLIN WITH HEPARINASE MAXIMUM AMPLITUDE 64.8 mm Normal 53.0-68.0 [facility] Comment on above: Performed By: #### L [id number] #### LAB [address] [place] [address] Moody Martinez M.D. [id number] TEG Platelet Mapping (Cardia c)on 10-27-2024 (AA-%Aggregation) AA Percent Aggregation 12.1 % Low 89.0 - 100.0 % [facility] (AA-%Inhibition) AA Percent Inhibition 87.9 % High 0.0 - 11.0 % [facility] (ADP-% Aggregation) ADP Percent Aggregation 61.2 % Low 83.0 - 100.0 % [facility] (ADP-%Inhibition) ADP PERCENT INHIBITION 38.8 % High 0.0 - 17.0 % [facility] Interpretation and review of laboratory results Abnormal [facility] Maximum amplitude AA induced Resonance TEG (Bld) [Length] 14.7 mm Low 51.0 - 71.0 mm [facility] Maximum amplitude activator F induced Resonance TEG (Bld) [Length] 7.8 mm 2.0 - 19.0 mm [facility] Maximum amplitude ADP induced Resonance TEG (Bld) [Length] 42.7 mm Low 45.0 - 69.0 mm [facility] Maximum amplitude kaolin induced after addition of heparinase Resonance TEG (Bld) [Length] 64.8 mm 53.0 - 68.0 mm [facility] TSHon 10-27-2024 TSH Qn 0.48 m[IU]/L Normal 0.27-4.20 [facility] Comment on above: Performed By: #### 4 6932 #### [facility] [address] [place], [place] [address] Moody Martinez M.D. 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 [id number] URINE AEROBIC CULTUREon 10-02 URINE AEROBIC CULTURE URINE CULTURE No Growth (<1,000 CFU/mL) Normal [facility] Comment on above: Order Comment: If PO SITIVE, send for sensitivities per cardiac surgeon Performed By: #### 4 4053 ####[facility] [address] Jose Cisse M.D. [id number] US DOPPLER CAROTIDon 024 US DOPPLER CAROTID Patient Info Name: ENOC ARMANDO Age: 78 years : 1945 Gender: Male Exam Date: 10/27/2024 10:32 AM Patient Status: Outpatient Needle Molder: Lori Fagan RDMS (AB), RVS Referring Physician: MARIE Arriaga; Indications Z01.810 - Encounter for preprocedural cardiovascular examination I65.23 - Occlusion and stenosis of bilateral carotid arteries Procedure Description 64496 Duplex examination using B-mode, color and spectral [...] Results c (more content not included)... Normal [facility] Comment on above: Order Comment: Dr. Sudha Parker to read US DOPPLER SEGMENTAL ARTERIA L LEGS BILATERALon 10-27-2024 US DOPPLER SEGMENTAL ARTERIAL LEGS BILATERAL Patient Info Name: ENOC ARMANDO Age: 78 years : 1945 Gender: Male Exam Date: 10/27/2024 9:50 AM Patient Status: Outpatient Needle Molder: Ya Jacob Referring Physician: ZOILA POLLARD; Indications I73.9 - Peripheral vascular disease, unspecified Procedure Description 76237 Limited bilateral noninvasive physiologic studies of upper [...] Nguyen DO on 10/27/2024 01:14 PM [facility] US RADIAL ARTERY MAPPING KARIN Bone 10-27-2024 US RADIAL ARTERY MAPPING BILATERAL Patient Info Name: ENOC ARMANDO Age: 78 years : 1945 Gender: Male Exam Date: 10/27/2024 11:23 AM Patient Status: Outpatient Needle Molder: Lori Fagan RDMS (AB), RVS Referring Physician: MARIE Arriaga; Indications - possible radial artery harvest Z01.810 - Encounter for preprocedural cardiovascular examination Procedure Description 13393 Duplex scan of upper extremity arteries or [...] Kristy Parker MD on 10/27/2024 11:50 AM [facility] Radial Artery Mapping Karin bone 10-27-2024 Patient Info Name: ENOC ARMANDO Age: 78 years : 1945 Gender: Male Exam Date: 10/27/2024 11:23 AM Patient Status: Outpatient Needle Molder: Lori Fagan RDMS (AB), RVS Referring Physician: MARIE Arriaga; Indications - possible radial artery harvest Z01.810 - Encounter for preprocedural cardiovascular examination Procedure Description 15541 Duplex scan of upper extremity arteries or [...] Date: 10/27/2024 11:23 AM Patient Status: Outpatient Needle Molder: Lori Fagan RDMS (AB), RVS Referring Physician: MARIE Arriaga; Indications - possible radial artery harvest Z01.810 - Encounter for preprocedural cardiovascular examination Procedure Description 04746 Duplex scan of upper extremity arteries or [...] Kristy Parker MD on 10/27/2024 11:50 AM [facility] SAPHENOUS VEIN MAPon 12-2 SAPHENOUS VEIN MAP Patient Info Name: ENOC ARMANDO Age: 78 years : 1945 Gender: Male Exam Date: 10/27/2024 11:13 AM Patient Status: Outpatient Needle Molder: Lori Fagan RDMS (AB), RVS Referring Physician: MARIE Arriaga; Indications - GSV harvest Z01.810 - Encounter for preprocedural cardiovascular examination Procedure Description 83487 Duplex examination using B-mode, color and spectral [...] Parker MD on 10/27/2024 11:57 AM [facility] Ultrasound Saphenous vein ma [facility] 10-27-2024 Patient Info Name: ENOC ARMANDO Age: 78 years : 1945 Gender: Male Exam Date: 10/27/2024 11:13 AM Patient Status: Outpatient Needle Molder: Lori Fagan RDMS (AB), RVS Referring Physician: MARIE Arriaga; Indications - GSV harvest Z01.810 - Encounter for preprocedural cardiovascular examination Procedure Description 37109 Duplex examination using B-mode, color and spectral [...] Kristy Parker MD on 10/27/2024 11:57 AM [facility] Kristy Parker MD - 10/27/2024 Patient Info Name: ENOC ARMANDO Age: 78 years : 1945 Gender: Male Exam Date: 10/27/2024 11:13 AM Patient Status: Outpatient Needle Molder: Lori Fagan RDMS (AB), RVS Referring Physician: MARIE Arriaga; Indications - GSV harvest Z01.810 - Encounter for preprocedural cardiovascular examination Procedure Description 15937 Duplex examination using B-mode, color and spectral [...] Parker MD on 10/27/2024 11:57 AM [facility] Ultrasound doppler carotidon 10-27-2024 Patient Info Name: ENOC ARMANDO Age: 78 years : 1945 Gender: Male Exam Date: 10/27/2024 10:32 AM Patient Status: Outpatient Needle Molder: Lori Fagan RDMS (AB), RVS Referring Physician: MARIE Arriaga; Indications Z01.810 - Encounter for preprocedural cardiovascular examination I65.23 - Occlusion and stenosis of bilateral carotid arteries Procedure Description 74618 Duplex examination using B-mode, color and spectral [...] Date: 10/27/2024 10:32 AM Patient Status: Outpatient Needle Molder: Lori Fagan RDMS (AB), RVS Referring Physician: MARIE Arriaga; Indications Z01.810 - Encounter for preprocedural cardiovascular examination I65.23 - Occlusion and stenosis of bilateral carotid arteries Procedure Description 56822 Duplex examination using B-mode, color and spectral [...] has a (more content not included)... [facility] Urinalysison 10-27-2024 Bacteria Auto Ql (U) Rare Abnormal None Se en /hpf [facility] Bilirubin Ql (U) Negative Negative [facility] th Clarity Refractometry automated (U) Clear Clear [facility] Color (U) Colorless Colorless, Yellow [facility] Epithelial cells.squamous Auto (Urine sed) [#/Area] [facility] alth Glucose Auto test strip (U) [Mass/Vol] 150 mg/dL Abnormal Negative, >=1000 [facility] Hemoglobin Auto test strip Ql (U) Negative Negative [facility] Hyaline casts Auto (Urine sed) [#/Area] 0-2 [facility] Interpretation and review of laboratory results Abnormal [facility] Ketones (U) [Mass/Vol] Negative Negat frank mg/dL [facility] Leukocyte esterase Auto test strip Ql (U) Negative Negative [facility] Mucus Auto (Urine sed) [#/Area] Rare None Seen, Rare /lpf [facility] Nitrite Auto test strip Ql (U) Negative Negative [facility] pH (U) 5 [pH] 5.0 - 7.0 [facility] Protein (U) [Mass/Vol] Negative Negat frank mg/dL [facility] RBC Auto (Urine sed) [#/Area] 1 [facility] Specific gravity (U) [Rel density] 1.017 1.005 - 1.025 [facility] Urobilinogen (U) [Mass/Vol] mg/dL NINF - 2.0 mg/dL [facility] WBC Auto (Urine sed) [#/Area] 1 [facility] Microscopic examination is performed on all urinalysis samples and only positive findings are reported. The test for blood on the chemical analytic portion of urinalysis may also be positive due to hemoglobinuria and myoglobinuria and if red blood cells are present they are quantified by microscopic examination. [facility] XR CHEST AP/PA AND LATon XR [...] effusion. IMPRESSION: Mild bilateral lower lung atelectasis. [employer] Workstation ID: [id number] Dictated by: KAHLIL VARGHESE on WedOct 27, 2024 1:12:55 PM EST Transcribed by: DASIA ENGLAND on WedOct 27, 2024 1:21:29 PM EST Finalized by: KAHLIL VARGHESE on WedOct 27, 2024 3:01:09 PM EST Normal [facility] Comment on above: Order Comment: Injur y/Trauma or Illness?:Illness/OtherHow long have you had these symptoms (acute/chronic)?:AcuteReason for exam?:pre opHistory of cancer?:.Surgeries, chemotherapy, or radiation?:cardiac catheterizationType of Exam?:InitialAdditional signs and symptoms?:. XR Chest PA and Lateral and AP lateral-decubituson 10-27-2024 Mild bilateral lower lung atelectasis. [employer] Workstation ID: [id number] GE RIS EXAMINATION: XR [...] lung atelectasis. JAR/trn Workstation ID: [id number] [facility] Radiology Study observation (narrative) [place] [facility] Chest PA and Lateral and AP lateral-decubitusOrdered By: Kahlil Varghese on 10-27-2024 [facility] Work Phone: aPTT Coag (Bld) [Time]on Interpretation and review of laboratory results Abnormal [facility] Therapeutic range for APTT's is 68 - 104 seconds [facility] BASIC METABOLIC PANELon 10-01 Calcium [Mass/Vol] 8.9 mg/dL Normal 8.6-10.3 [facility] Comment on above: Order Comment: FASTI NG:UNKNOWN FASTING: UNKNOWN Performed By: #### 6 399, 84083 #### [facility] [address], [address] [place] [address] Computer Equipment Installer: Jadon Velez MD Chloride [Moles/Vol] 106 mmol/L Normal 98-110 [facility] Comment on above: Order Comment: FASTI NG:UNKNOWN FASTING: UNKNOWN Performed By: #### 6 399, 50223 #### [facility] [address], [address] [place] [address] Computer Equipment Installer: Jadon Velez MD CO2 [Moles/Vol] 22 mmol/L Normal 20-32 [facility] Comment on above: Order Comment: FASTI NG:UNKNOWN FASTING: UNKNOWN Performed By: #### 6 399, 45110 #### [facility] [address], [address] [place] [address] Computer Equipment Installer: Jadon Velez MD Creatinine [Mass/Vol] 2.36 mg/dL High 0.70-1.[address] [facility] [address] [facility] Comment on above: Order Comment: FASTI NG:UNKNOWN FASTING: UNKNOWN Performed By: #### 6 399, 79701 #### [facility] [address], [address] [place] [address] Computer Equipment Installer: Jadon Velez MD GFR/1.73 sq M.predicted among non-blacks MDRD (S/P/Bld) [Vol rate/Area] 27 mL/min/{1.73_m2} Low > OR = 60 [facility] Comment on above: Order Comment: FASTI NG:UNKNOWN FASTING: UNKNOWN Performed By: #### 6 399, 13845 #### [facility] [address], [address] [place] [address] Computer Equipment Installer: Jadon Velez MD Glucose [Mass/Vol] 316 mg/dL High 65-99 [facility] Comment on above: Order Comment: FASTI NG:UNKNOWN FASTING: UNKNOWN Result Comment: Fasting reference interval For someone without known diabetes, a glucose value >125 mg/dL indicates that they may have diabetes and this should be confirmed with a follow-up test. Performed By: #### 6 399, 99492 #### [facility] [place] [address] Computer Equipment Installer: Jadon Velez MD Potassium [Moles/Vol] 5.6 mmol/L High 3.5-5.[address] [facility] Comment on above: Order Comment: FASTI NG:UNKNOWN FASTING: UNKNOWN Performed By: #### 6 399, 37217 #### [facility] [place] [address] Computer Equipment Installer: Jadon Velez MD Sodium [Moles/Vol] 137 mmol/L Normal 135-146 [facility] Comment on above: Order Comment: FASTI NG:UNKNOWN FASTING: UNKNOWN Performed By: #### 6 399, 54377 #### [facility] [address], [address] [place] [address] Computer Equipment Installer: Jaodn Velez MD Urea nitrogen [Mass/Vol] 66 mg/dL High 05-25 [facility] Comment on above: Order Comment: FASTI NG:UNKNOWN FASTING: UNKNOWN Performed By: #### 6 399, 31685 #### [facility] [place] [address] Computer Equipment Installer: Jadon Velez MD Urea nitrogen/Creatinine [Mass ratio] 28 mg/mg High 04-22 [facility] Comment on above: Order Comment: FASTI NG:UNKNOWN FASTING: UNKNOWN Performed By: #### 6 399, 54416 #### [facility] [place] [address] Computer Equipment Installer: Jadon Velez MD CBC (INCLUDES DIFF/PLT)on Basophils (Bld) [#/Vol] 0.213 10*3/uL High 0-200 [facility] Comment on above: Performed By: #### 6 399, 78523 #### [facility] [place] [address] Computer Equipment Installer: Jadon Velez MD Basophils/100 WBC (Bld) 2.6 % Normal [facility] Comment on above: Performed By: #### 6 399, 66927 #### [facility] [place] [address] Computer Equipment Installer: Jadon Velez MD Eosinophils (Bld) [#/Vol] 0.5 10*3/uL Normal 15-500 [facility] Comment on above: Performed By: #### 6 399, 15320 #### [facility] of [address], [address] [place] [address] Computer Equipment Installer: Jadon Velez MD Eosinophils/100 WBC (Bld) 6.1 % Normal [facility] Comment on above: Performed By: #### 6 399, 16149 #### [facility] of [address], [address] [place] [address] Computer Equipment Installer: Jadon Velez MD Erythrocyte distribution width (RBC) [Ratio] 12.9 % Normal 11.0-15.0 [facility] Comment on above: Performed By: #### 6 399, 73589 #### [facility] of [place] [address] Computer Equipment Installer: Jadon Velez MD Hematocrit (Bld) [Volume fraction] 33.8 % Low 38.5-50.0 [facility] Comment on above: Performed By: #### 6 399, 42486 #### [facility] of [place] [address] Computer Equipment Installer: Jadon Velez MD Hemoglobin (Bld) [Mass/Vol] 10.9 g/dL Low 13.2-17.1 [facility] Comment on above: Performed By: #### 6 399, 05890 #### [facility] of [place] [address] Computer Equipment Installer: Jadon Velez MD Lymphocytes (Bld) [#/Vol] 2.28 10*3/uL Normal 850-3900 [facility] Comment on above: Performed By: #### 6 399, 92933 #### [facility] of [address], [address] [place] [address] Computer Equipment Installer: Jadon Velez MD Lymphocytes/100 WBC (Bld) 27.8 % Normal [facility] Comment on above: Performed By: #### 6 399, 99362 #### [facility] of [place] [address] Computer Equipment Installer: Jadon Velez MD MCH (RBC) [Entitic mass] 30.9 pg Normal 27.0-33.0 [facility] Comment on above: Performed By: #### 6 399, 29380 #### [facility] [place] [address] Computer Equipment Installer: Jadon Velez MD MCHC (RBC) [Mass/Vol] 32.2 [...] clinical condition. Performed By: #### 6 399, 64408 #### [facility] [place] [address] Computer Equipment Installer: Jadon Velez MD MCV (RBC) [Entitic vol] 95.8 fL Normal 80.0-100.0 [facility] Comment on above: Performed By: #### 6 399, 93507 #### [facility] of [place] [address] Computer Equipment Installer: Jadon Velez MD Monocytes (Bld) [#/Vol] 0.631 10*3/uL Normal 200-950 [facility] Comment on above: Performed By: #### 6 399, 36425 #### [facility] [place] [address] Computer Equipment Installer: Jadon Velez MD Monocytes/100 WBC (Bld) 7.7 % Normal [facility] Comment on above: Performed By: #### 6 399, 07529 #### [facility] [place] [address] Computer Equipment Installer: Jadon Velez MD Neutrophils (Bld) [#/Vol] 4.576 10*3/uL Normal 1500-78 00 [facility] Comment on above: Performed By: #### 6 399, 96779 #### [facility] [place] [id number] Computer Equipment Installer: Jadon Velez MD Neutrophils/100 WBC (Bld) 55.8 % Normal [facility] Comment on above: Performed By: #### 6 399, 35071 #### [facility] of [place] [address] Computer Equipment Installer: Jadon Velez MD Platelet mean volume (Bld) [Entitic vol] 11.5 fL Normal 7.5-12.5 [facility] Comment on above: Performed By: #### 6 399, 71340 #### [facility] of [place] [address] Computer Equipment Installer: Jadon Velez MD Platelets (Bld) [#/Vol] 289 10*3/uL Normal 140-400 [facility] Comment on above: Performed By: #### 6 399, 63875 #### [facility] of [place] [address] Computer Equipment Installer: Jadon Velez MD RBC (Bld) [#/Vol] 3.53 10*6/uL Low 4.20-5.80 [facility] Comment on above: Performed By: #### 6 399, 14265 #### [facility] of [place] [address] Computer Equipment Installer: Jadon Velez MD WBC (Bld) [#/Vol] 8.2 10*3/uL Normal 3.8-10.8 [facility] Comment on above: Performed By: #### 6 399, 36159 #### [facility] of [place] [address] Computer Equipment Installer: Jadon Velez MD Lipid Profileon 09-21-2024 Cholesterol [Mass/Vol] 148 mg/dL Normal 200 [facility] Comment on above: Result Comment: <200 mg/dL Desirable 200-240 mg/dL Borderline >240 mg/dL High Risk Performed By: #### L 500.4100 ####[facility] [address] [place], [address] Cholesterol in HDL [Mass/Vol] 49 mg/dL Normal [facility] Comment on above: Result Comment: The drugs N-Acetylcysteine and Metamizole may falselydepress this assay. Reference Range HDL <40 mg/dL Low HDL Cholesterol HDL >or= 60 mg/dL High HDL Cholesterol Performed By: #### L 500.4100 ####[facility] [address] [place], [address] Cholesterol in LDL [Mass/Vol] 87 mg/dL Normal 0-130 [facility] Comment on above: Performed By: #### L 500.4100 ####[facility] [address] [place], [address] Cholesterol in VLDL [Mass/Vol] 12 mg/dL Normal 5-40 [facility] Comment on above: Performed By: #### L 500.4100 ####[facility] [address] [place], [address] Triglyceride [Mass/Vol] 58 mg/dL Normal [facility] Comment on above: Result Comment: The drugs N-Acetylcysteine and Metamizole may falselydepress this assay.Serum Triglycerides Reference Interval Normal <150 mg/dL Borderline high 150 - 199 mg/dL High 200 - 499 mg/dL Very High > or = 500 mg/dL Performed By: #### L 500.4100 ####[facility] [address] [place], [address] Basic Metabolic Profile (BMP )on 09-15-2024 BUN Normal 7-18 [facility] Comment on above: Result Comment: Canc elled via OM: Order cancelled - Patient discharged Performed By: #### L 500.2500, L100.0100 ####[facility] [address] [place], [address] BUN/CRE Normal 10-20 [facility] Comment on above: Result Comment: Canc elled via OM: Order cancelled - Patient discharged Performed By: #### L 500.2500, L100.0100 ####[facility] [address] [place], [address] CA,Total Normal 8.5-10.1 [facility] Comment on above: Result Comment: Canc elled via OM: Order cancelled - Patient discharged Performed By: #### L 500.2500, L100.0100 ####[facility] [address] [place], [address] CL Normal 98-107 [facility] Comment on above: Result Comment: Canc elled via OM: Order cancelled - Patient discharged Performed By: #### L 500.2500, L100.0100 ####[facility] [address] [place], [address] CO2 Normal 21.0-32.0 [facility] Comment on above: Result Comment: Canc elled via OM: Order cancelled - Patient discharged Performed By: #### L 500.2500, L100.0100 ####[facility] [address] [place], [address] CREAT,SERUM Normal 0.70-1.30 [facility] Comment on above: Result Comment: Canc elled via OM: Order cancelled - Patient discharged Performed By: #### L 500.2500, L100.0100 ####[facility] [address] [place], [address] EST GFR Normal >60 [facility] Comment on above: Result Comment: Canc elled via OM: Order cancelled - Patient discharged Performed By: #### L 500.2500, L100.0100 ####[facility] [address] [place], [address] EST GFR - AA Normal >60 [facility] Comment on above: Result Comment: Canc elled via OM: Order cancelled - Patient discharged Performed By: #### L 500.2500, L100.0100 ####[facility] [address] [place], [address] GAP Normal 5-15 [facility] Comment on above: Result Comment: Canc elled via OM: Order cancelled - Patient discharged Performed By: #### L 500.2500, L100.0100 ####[facility] [address] [place], [address] GLU Normal 74-106 [facility] Comment on above: Result Comment: Canc elled via OM: Order cancelled - Patient discharged Performed By: #### L 500.2500, L100.0100 ####[facility] [address] [place], [address] Potassium Normal 3.5-5.1 [facility] Comment on above: Result Comment: Canc elled via OM: Order cancelled - Patient discharged Performed By: #### L 500.2500, L100.0100 ####[facility] [address] [place], [address] Basic Metabolic Profile (BMP) Normal 136-145 [facility] Comment on above: Result Comment: Canc elled via OM: Order cancelled - Patient discharged Performed By: #### L 500.2500, L100.0100 ####[facility] [address] [place], [address] CBC W/Diff, Automatedon 11-1 Absolute Neut Normal 2.0-7.7 [facility] Comment on above: Result Comment: Canc elled via OM: Order cancelled - Patient discharged Performed By: #### L 500.2500, L100.0100 ####[facility] [address] [place], [address] HCT Normal 40-54 [facility] Comment on above: Result Comment: Canc elled via OM: Order cancelled - Patient discharged Performed By: #### L 500.2500, L100.0100 ####[facility] [address] [place], [address] HGB Normal 13.0-16.5 [facility] Comment on above: Result Comment: Canc elled via OM: Order cancelled - Patient discharged Performed By: #### L 500.2500, L100.0100 ####[facility] [address] [place], [address] MCH Normal 27.0-32.0 [facility] Comment on above: Result Comment: Canc elled via OM: Order cancelled - Patient discharged Performed By: #### L 500.2500, L100.0100 ####[facility] [address] [place], [address] MCHC Normal 32-36 [facility] Comment on above: Result Comment: Canc elled via OM: Order cancelled - Patient discharged Performed By: #### L 500.2500, L100.0100 ####[facility] [address] [place], [address] MCV Normal 80-94 [facility] Comment on above: Result Comment: Canc elled via OM: Order cancelled - Patient discharged Performed By: #### L 500.2500, L100.0100 ####[facility] [address] [place], [address] NEUT% Normal 47-70 [facility] Comment on above: Result Comment: Canc elled via OM: Order cancelled - Patient discharged Performed By: #### L 500.2500, L100.0100 ####[facility] [address] [place], [address] PLT Normal 150-450 [facility] Comment on above: Result Comment: Canc elled via OM: Order cancelled - Patient discharged Performed By: #### L 500.2500, L100.0100 ####[facility] [address] [place], [address] RBC Normal 4.6-6.2 [facility] Comment on above: Result Comment: Canc elled via OM: Order cancelled - Patient discharged Performed By: #### L 500.2500, L100.0100 ####[facility] [address] [place], [address] RDW CV Normal 11.6-14.6 [facility] Comment on above: Result Comment: Canc elled via OM: Order cancelled - Patient discharged Performed By: #### L 500.2500, L100.0100 ####[facility] [address] [place], [address] RDW SD Normal 35.1-43.9 [facility] Comment on above: Result Comment: Canc elled via OM: Order cancelled - Patient discharged Performed By: #### L 500.2500, L100.0100 ####[facility] [address] [place], [address] WBC Normal 4.4-11.0 [facility] Comment on above: Result Comment: Canc elled via OM: Order cancelled - Patient discharged Performed By: #### L 500.2500, L100.0100 ####[facility] [address] [place], [address] Basic Metabolic Profile (BMP )on 09-14-2024 BUN/CRE 21.4 RATIO High 10-20 [facility] Comment on above: Performed By: #### L 100.0100, L500.2500 ####[facility] [address] [place], [address] CA,Total 8.7 mg/dL Normal 8.5-10.1 [facility] Comment on above: Performed By: #### L 100.0100, L500.2500 ####[facility] [address] [place], [address] Chloride [Moles/Vol] 104 mmol/L Normal 98-107 [facility] Comment on above: Performed By: #### L 100.0100, L500.2500 ####[facility] [address] [place], [address] CO2 [Moles/Vol] 24.0 mmol/L Normal 21.0-32.0 [facility] Comment on above: Performed By: #### L 100.0100, L500.2500 ####[facility] [address] [place], [address] Creatinine [Mass/Vol] 1.96 mg/dL High 0.70-1.30 [facility] Comment on above: Result Comment: The validity of the calculated GFR GFRAA in patients over70 years has not been determined. Clinical correlation isessential. Performed By: #### L 100.0100, L500.2500 ####[facility] [address] [place], [address] ECRCL 28.02 ml/min Normal [facility] Comment on above: Performed By: #### L 100.0100, L500.2500 ####[facility] [address] [place], [address] EST GFR - AA 43 mL/min Low >60 [facility] Comment on above: Result Comment: Afri can Burmese GFR Calc Performed By: #### L 100.0100, L500.2500 ####[facility] [address] [place], [address] GAP 7 Normal 5-15 [facility] Comment on above: Performed By: #### L 100.0100, L500.2500 ####[facility] [address] [place], [address] GFR/1.73 sq M.predicted among non-blacks MDRD (S/P/Bld) [Vol rate/Area] 35 mL/min/{1.73_m2} Low >60 [facility] Comment on above: Result Comment: Non- GFR Calc Performed By: #### L 100.0100, L500.2500 ####[facility] [address] [place], [address] Glucose [Mass/Vol] 292 mg/dL High 74-106 [facility] Comment on above: Result Comment: Gluc ose result greater than or equal to 200 mg/dLsuggests DIABETES MELLITUS per A.D.A. criteria. Performed By: #### L 100.0100, L500.2500 ####[facility] [address] [place], [address] Potassium [Moles/Vol] 4.0 mmol/L Normal 3.5-5.1 [facility] Comment on above: Performed By: #### L 100.0100, L500.2500 ####[facility] [address] [place], [address] Sodium [Moles/Vol] 135 mmol/L Low 136-145 [facility] Comment on above: Performed By: #### L 100.0100, L500.2500 ####[facility] [address] [place], [address] Urea nitrogen [Mass/Vol] 42 mg/dL High 7-18 [facility] Comment on above: Performed By: #### L 100.0100, L500.2500 ####[facility] [address] [place], [address] Bedside Glucoseon 09-14-2024 FINGERSTICK GLU 276 mg/dL High 74-106 [facility] Comment on above: Result Comment: Dr James sim FollowedInsulin GivenMANAGEMENT OF PATIENT CARE PER NURSING PROTOCOL Performed By: #### L 501.080 ####[facility] [address] [place], [address] CBC W/Diff, Automatedon 09-01 Absolute Lymph 1.66 X10 3/uL Normal 0.83-4.51 [facility] Comment on above: Performed By: #### L 100.0100, L500.2500 ####[facility] [address] [place], [address] Absolute Neut 7.6 X10 3/uL Normal 2.0-7.7 [facility] Comment on above: Performed By: #### L 100.0100, L500.2500 ####[facility] [address] [place], [address] Basophils/100 WBC (Bld) 0.9 % Normal 0-1 [facility] Comment on above: Performed By: #### L 100.0100, L500.2500 ####[facility] [address] [place], [address] Eosinophils/100 WBC (Bld) 2.2 % Normal 0-5 [facility] Comment on above: Performed By: #### L 100.0100, L500.2500 ####[facility] [address] [place], [address] Erythrocyte distribution width (RBC) [Ratio] 13.4 % Normal 11.6-14.6 [facility] Comment on above: Performed By: #### L 100.0100, L500.2500 ####[facility] [address] [place], [address] Hematocrit (Bld) [Volume fraction] 32.8 % Low 40-54 [facility] Comment on above: Performed By: #### L 100.0100, L500.2500 ####[facility] [address] [place], [address] Hemoglobin (Bld) [Mass/Vol] 11.1 g/dL Low 13.0-16.5 [facility] Comment on above: Performed By: #### L 100.0100, L500.2500 ####[facility] [address] [place], [address] IG% 0.300 Normal 0.0-0.9 [facility] Comment on above: Result Comment: IG% - Immature Granulocytes (promyelocytes, myelocytes andmetamyelocytes) > 1% indicates that a LEFT SHIFT is Present. Performed By: #### L 100.0100, L500.2500 ####[facility] [address] [place], [address] Lymphocytes/100 WBC (Bld) 15.7 % Low 19-41 [facility] Comment on above: Performed By: #### L 100.0100, L500.2500 ####[facility] [address] [place], [address] MCH (RBC) [Entitic mass] 30.7 pg Normal 27.0-32.0 [facility] Comment on above: Performed By: #### L 100.0100, L500.2500 ####[facility] [address] [place], [address] MCHC (RBC) [Mass/Vol] 33.8 g/dL Normal 32-36 [facility] Comment on above: Performed By: #### L 100.0100, L500.2500 ####[facility] [address] [place], [address] MCV (RBC) [Entitic vol] 90.6 fL Normal 80-94 [facility] Comment on above: Performed By: #### L 100.0100, L500.2500 ####[facility] [address] [place], [address] Monocytes/100 WBC (Bld) 9.0 % Normal 0-10 [facility] Comment on above: Performed By: #### L 100.0100, L500.2500 ####[facility] [address] [place], [address] Neutrophils/100 WBC (Bld) 71.9 % High 47-70 [facility] Comment on above: Performed By: #### L 100.0100, L500.2500 ####[facility] [address] [place], [address] Nucleated RBC (Bld) [#/Vol] 0 10*3/uL Normal 0-5 [facility] Comment on above: Performed By: #### L 100.0100, L500.2500 ####[facility] [address] [place], [address] Platelet mean volume (Bld) [Entitic vol] 11.9 fL Normal 6.2-12.0 [facility] Comment on above: Performed By: #### L 100.0100, L500.2500 ####[facility] [address] [place], [address] Platelets (Bld) [#/Vol] 186 10*3/uL Normal 150-450 [facility] Comment on above: Performed By: #### L 100.0100, L500.2500 ####[facility] [address] [place], [address] RBC (Bld) [#/Vol] 3.62 10*6/uL Low 4.6-6.2 [facility] Comment on above: Performed By: #### L 100.0100, L500.2500 ####[facility] [address] [place], [address] RDW SD 44.5 fl High 35.1-43.9 [facility] Comment on above: Performed By: #### L 100.0100, L500.2500 ####[facility] [address] [place], [address] WBC (Bld) [#/Vol] 10.5 10*3/uL Normal 4.4-11.0 [facility] Comment on above: Performed By: #### L 100.0100, L500.2500 ####[facility] [address] [place], [address] Basic Metabolic Profile (BMP )on 09-13-2024 BUN Normal 7-18 [facility] Comment on above: Result Comment: Canc elled via OM: MD Ordered Performed By: #### L 500.2500, L100.0100 ####[facility] [address] [place], [address] BUN/CRE Normal 10-20 [facility] Comment on above: Result Comment: Canc elled via OM: MD Ordered Performed By: #### L 500.2500, L100.0100 ####[facility] [address] [place], [address] CA,Total Normal 8.5-10.1 [facility] Comment on above: Result Comment: Canc elled via OM: MD Ordered Performed By: #### L 500.2500, L100.0100 ####[facility] [address] [place], [address] CL Normal 98-107 [facility] Comment on above: Result Comment: Canc elled via OM: MD Ordered Performed By: #### L 500.2500, L100.0100 ####[facility] [address] [place], [address] CO2 Normal 21.0-32.0 [facility] Comment on above: Result Comment: Canc elled via OM: MD Ordered Performed By: #### L 500.2500, L100.0100 ####[facility] [address] [place], [address] CREAT,SERUM Normal 0.70-1.30 [facility] Comment on above: Result Comment: Canc elled via OM: MD Ordered Performed By: #### L 500.2500, L100.0100 ####[facility] [address] [place], [address] EST GFR Normal >60 [facility] Comment on above: Result Comment: Canc elled via OM: MD Ordered Performed By: #### L 500.2500, L100.0100 ####[facility] [address] [place], [address] EST GFR - AA Normal >60 [facility] Comment on above: Result Comment: Canc elled via OM: MD Ordered Performed By: #### L 500.2500, L100.0100 ####[facility] [address] [place], [address] GAP Normal 5-15 [facility] Comment on above: Result Comment: Canc elled via OM: MD Ordered Performed By: #### L 500.2500, L100.0100 ####[facility] [address] [place], [address] GLU Normal 74-106 [facility] Comment on above: Result Comment: Canc elled via OM: MD Ordered Performed By: #### L 500.2500, L100.0100 ####[facility] [address] [place], [address] Potassium Normal 3.5-5.1 [facility] Comment on above: Result Comment: Canc elled via OM: MD Ordered Performed By: #### L 500.2500, L100.0100 ####[facility] [address] [place], [address] Basic Metabolic Profile (BMP) Normal 136-145 [facility] Comment on above: Result Comment: Canc elled via OM: MD Ordered Performed By: #### L 500.2500, L100.0100 ####[facility] [address] [place], [address] BUN/CRE 17.4 RATIO Normal 10-20 [facility] Comment on above: Performed By: #### L 501.5200, L500.2500, L501.2300, L100.0100 ####[facility] [address] [place], [address] CA,Total 8.7 mg/dL Normal 8.5-10.1 [facility] Comment on above: Performed By: #### L 501.5200, L500.2500, L501.2300, L100.0100 ####[facility] [address] [place], [address] Chloride [Moles/Vol] 105 mmol/L Normal 98-107 [facility] Comment on above: Performed By: #### L 501.5200, L500.2500, L501.2300, L100.0100 ####[facility] [address] [place], [address] CO2 [Moles/Vol] 28.0 mmol/L Normal 21.0-32.0 [facility] Comment on above: Performed By: #### L 501.5200, L500.2500, L501.2300, L100.0100 ####[facility] [address] [place], [address] Creatinine [Mass/Vol] 1.78 mg/dL High 0.70-1.30 [facility] Comment on above: Result Comment: The validity of the calculated GFR GFRAA in patients over70 years has not been determined. Clinical correlation isessential. Performed By: #### L 501.5200, L500.2500, L501.2300, L100.0100 ####[facility] [address] [place], [address] ECRCL 30.95 ml/min Normal [facility] Comment on above: Performed By: #### L 501.5200, L500.2500, L501.2300, L100.0100 ####[facility] [address] [place], [address] EST GFR - AA 47 mL/min Low >60 [facility] Comment on above: Result Comment: Afri can Burmese GFR Calc Performed By: #### L 501.5200, L500.2500, L501.2300, L100.0100 ####[facility] [address] [place], [address] GAP 7 Normal 5-15 [facility] Comment on above: Performed By: #### L 501.5200, L500.2500, L501.2300, L100.0100 ####[facility] [address] [place], [address] GFR/1.73 sq M.predicted among non-blacks MDRD (S/P/Bld) [Vol rate/Area] 39 mL/min/{1.73_m2} Low >60 [facility] Comment on above: Result Comment: Non- GFR Calc Performed By: #### L 501.5200, L500.2500, L501.2300, L100.0100 ####[facility] [address] [place], [address] Glucose [Mass/Vol] 138 mg/dL High 74-106 [facility] Comment on above: Result Comment: Fast ing Glucose result greater than or equal to 126 mg/dLsuggests DIABETES MELLITUS per A.D.A. criteria. Performed By: #### L 501.5200, L500.2500, L501.2300, L100.0100 ####[facility] [address] [place], [address] Potassium [Moles/Vol] 3.4 mmol/L Low 3.5-5.1 [facility] Comment on above: Performed By: #### L 501.5200, L500.2500, L501.2300, L100.0100 ####[facility] [address] [place], [address] Sodium [Moles/Vol] 140 mmol/L Normal 136-145 [facility] Comment on above: Performed By: #### L 501.5200, L500.2500, L501.2300, L100.0100 ####[facility] [address] [place], [address] Urea nitrogen [Mass/Vol] 31 mg/dL High 7-18 [facility] Comment on above: Performed By: #### L 501.5200, L500.2500, L501.2300, L100.0100 ####[facility] [address] [place], [address] Bedside Glucoseon 09-13-2024 FINGERSTICK GLU 281 mg/dL High 74-106 [facility] Comment on above: Result Comment: ADITI GEMENT OF PATIENT CARE PER NURSING PROTOCOL Performed By: #### L 501.080 ####[facility] [address] [place], [address] FINGERSTICK GLU 179 mg/dL High 74-106 [facility] Comment on above: Result Comment: ADITI GEMENT OF PATIENT CARE PER NURSING PROTOCOL Performed By: #### L 501.080 ####[facility] [address] [place], [address] FINGERSTICK GLU 234 mg/dL High 74-106 [facility] Comment on above: Result Comment: ADITI GEMENT OF PATIENT CARE PER NURSING PROTOCOL Performed By: #### L 501.080 ####[facility] [address] [place], [address] FINGERSTICK GLU 238 mg/dL High 74-106 [facility] Comment on above: Result Comment: ADITI GEMENT OF PATIENT CARE PER NURSING PROTOCOL Performed By: #### L 501.080 ####[facility] [address] [place], [address] FINGERSTICK GLU 126 mg/dL High 74-106 [facility] Comment on above: Result Comment: ADITI GEMENT OF PATIENT CARE PER NURSING PROTOCOL Performed By: #### L 501.080 ####[facility] [address] [place], [address] CBC W/Diff, Automatedon - Absolute Neut Normal 2.0-7.7 [facility] Comment on above: Result Comment: Canc elled via OM: MD Ordered Performed By: #### L 500.2500, L100.0100 ####[facility] [address] [place], [address] HCT Normal 40-54 [facility] Comment on above: Result Comment: Canc elled via OM: MD Ordered Performed By: #### L 500.2500, L100.0100 ####[facility] [address] [place], [address] HGB Normal 13.0-16.5 [facility] Comment on above: Result Comment: Canc elled via OM: MD Ordered Performed By: #### L 500.2500, L100.0100 ####[facility] [address] [place], [address] MCH Normal 27.0-32.0 [facility] Comment on above: Result Comment: Canc elled via OM: MD Ordered Performed By: #### L 500.2500, L100.0100 ####[facility] [address] [place], [address] MCHC Normal 32-36 [facility] Comment on above: Result Comment: Canc elled via OM: MD Ordered Performed By: #### L 500.2500, L100.0100 ####[facility] [address] [place], [address] MCV Normal 80-94 [facility] Comment on above: Result Comment: Canc elled via OM: MD Ordered Performed By: #### L 500.2500, L100.0100 ####[facility] [address] [place], [address] NEUT% Normal 47-70 [facility] Comment on above: Result Comment: Canc elled via OM: MD Ordered Performed By: #### L 500.2500, L100.0100 ####[facility] [address] [place], [address] PLT Normal 150-450 [facility] Comment on above: Result Comment: Canc elled via OM: MD Ordered Performed By: #### L 500.2500, L100.0100 ####[facility] [address] [place], [address] RBC Normal 4.6-6.2 [facility] Comment on above: Result Comment: Canc elled via OM: MD Ordered Performed By: #### L 500.2500, L100.0100 ####[facility] [address] [place], [address] RDW CV Normal 11.6-14.6 [facility] Comment on above: Result Comment: Canc elled via OM: MD Ordered Performed By: #### L 500.2500, L100.0100 ####[facility] [address] [place], [address] RDW SD Normal 35.1-43.9 [facility] Comment on above: Result Comment: Canc elled via OM: MD Ordered Performed By: #### L 500.2500, L100.0100 ####[facility] [address] [place], [address] WBC Normal 4.4-11.0 [facility] Comment on above: Result Comment: Canc elled via OM: MD Ordered Performed By: #### L 500.2500, L100.0100 ####[facility] [address] [place], [address] Absolute Lymph 2.32 X10 3/uL Normal 0.83-4.51 [facility] Comment on above: Performed By: #### L 501.5200, L500.2500, L501.2300, L100.0100 ####[facility] [address] [place], [address] Absolute Neut 7.4 X10 3/uL Normal 2.0-7.7 [facility] Comment on above: Performed By: #### L 501.5200, L500.2500, L501.2300, L100.0100 ####[facility] [address] [place], [address] Basophils/100 WBC (Bld) 0.8 % Normal 0-1 [facility] Comment on above: Performed By: #### L 501.5200, L500.2500, L501.2300, L100.0100 ####[facility] [address] [place], [address] Eosinophils/100 WBC (Bld) 1.3 % Normal 0-5 [facility] Comment on above: Performed By: #### L 501.5200, L500.2500, L501.2300, L100.0100 ####[facility] [address] [place], [address] Erythrocyte distribution width (RBC) [Ratio] 13.8 % Normal 11.6-14.6 [facility] Comment on above: Performed By: #### L 501.5200, L500.2500, L501.2300, L100.0100 ####[facility] [address] [place], [address] Hematocrit (Bld) [Volume fraction] 30.7 % Low 40-54 [facility] Comment on above: Performed By: #### L 501.5200, L500.2500, L501.2300, L100.0100 ####[facility] [address] [place], [address] Hemoglobin (Bld) [Mass/Vol] 10.4 g/dL Low 13.0-16.5 [facility] Comment on above: Performed By: #### L 501.5200, L500.2500, L501.2300, L100.0100 ####[facility] [address] [place], [address] IG% 0.400 Normal 0.0-0.9 [facility] Comment on above: Result Comment: IG% - Immature Granulocytes (promyelocytes, myelocytes andmetamyelocytes) > 1% indicates that a LEFT SHIFT is Present. Performed By: #### L 501.5200, L500.2500, L501.2300, L100.0100 ####[facility] [address] [place], [address] Lymphocytes/100 WBC (Bld) 21.2 % Normal 19-41 [facility] Comment on above: Performed By: #### L 501.5200, L500.2500, L501.2300, L100.0100 ####[facility] [address] [place], [address] MCH (RBC) [Entitic mass] 30.6 pg Normal 27.0-32.0 [facility] Comment on above: Performed By: #### L 501.5200, L500.2500, L501.2300, L100.0100 ####[facility] [address] [place], [address] MCHC (RBC) [Mass/Vol] 33.9 g/dL Normal 32-36 [facility] Comment on above: Performed By: #### L 501.5200, L500.2500, L501.2300, L100.0100 ####[facility] [address] [place], [address] MCV (RBC) [Entitic vol] 90.3 fL Normal 80-94 [facility] Comment on above: Performed By: #### L 501.5200, L500.2500, L501.2300, L100.0100 ####[facility] [address] [place], [address] Monocytes/100 WBC (Bld) 9.3 % Normal 0-10 [facility] Comment on above: Performed By: #### L 501.5200, L500.2500, L501.2300, L100.0100 ####[facility] [address] [place], [address] Neutrophils/100 WBC (Bld) 67.0 % Normal 47-70 [facility] Comment on above: Performed By: #### L 501.5200, L500.2500, L501.2300, L100.0100 ####[facility] [address] [place], [address] Nucleated RBC (Bld) [#/Vol] 0 10*3/uL Normal 0-5 [facility] Comment on above: Performed By: #### L 501.5200, L500.2500, L501.2300, L100.0100 ####[facility] [address] [place], [address] Platelet mean volume (Bld) [Entitic vol] 11.4 fL Normal 6.2-12.0 [facility] Comment on above: Performed By: #### L 501.5200, L500.2500, L501.2300, L100.0100 ####[facility] [address] [place], [address] Platelets (Bld) [#/Vol] 168 10*3/uL Normal 150-450 [facility] Comment on above: Performed By: #### L 501.5200, L500.2500, L501.2300, L100.0100 ####[facility] [address] [place], [address] RBC (Bld) [#/Vol] 3.40 10*6/uL Low 4.6-6.2 [facility] Comment on above: Performed By: #### L 501.5200, L500.2500, L501.2300, L100.0100 ####[facility] [address] [place], [address] RDW SD 45.1 fl High 35.1-43.9 [facility] Comment on above: Performed By: #### L 501.5200, L500.2500, L501.2300, L100.0100 ####[facility] [address] [place], [address] WBC (Bld) [#/Vol] 11.0 10*3/uL Normal 4.4-11.0 [facility] Comment on above: Performed By: #### L 501.5200, L500.2500, L501.2300, L100.0100 ####[facility] [address] [place], [address] Magnesiumon 09-13-2024 Magnesium [Mass/Vol] 2.0 mg/dL Normal 1.6-2.6 [facility] Comment on above: Performed By: #### L 501.5200, L500.2500, L501.2300, L100.0100 ####[facility] [address] [place], [address] Phosphoruson 09-13-2024 Phosphate [Mass/Vol] 3.2 mg/dL Normal 2.5-4.9 [facility] Comment on above: Performed By: #### L 501.5200, L500.2500, L501.2300, L100.0100 ####[facility] [address] [place], [address] 12 Lead EKGon 09-12-2024 12 Lead EKG Normal [facility] BNP,B-Type NATRIURETIC PEPTI Silviano 09-12-2024 Natriuretic peptide B (Bld) [Mass/Vol] 903.4 pg/mL High 0-100 [facility] Comment on above: Performed By: #### L 300.3900, L100.0100, L300.4310, L500.2500, L503.6620, L501.5425, L501.5200 ####[facility] [address] [place], [address] Basic Metabolic Profile (BMP )on 09-12-2024 BUN/CRE 14.5 RATIO Normal 10-20 [facility] Comment on above: Order Comment: 1Y Performed By: #### L 300.3900, L100.0100, L300.4310, L500.2500, L503.6620, L501.5425, L501.5200 ####[facility] [address] [place], [address] CA,Total 9.1 mg/dL Normal 8.5-10.1 [facility] Comment on above: Order Comment: 1Y Performed By: #### L 300.3900, L100.0100, L300.4310, L500.2500, L503.6620, L501.5425, L501.5200 ####[facility] [address] [place], [address] Chloride [Moles/Vol] 105 mmol/L Normal 98-107 [facility] Comment on above: Order Comment: 1Y Performed By: #### L 300.3900, L100.0100, L300.4310, L500.2500, L503.6620, L501.5425, L501.5200 ####[facility] [address] [place], [address] CO2 [Moles/Vol] 22.0 mmol/L Normal 21.0-32.0 [facility] Comment on above: Order Comment: 1Y Performed By: #### L 300.3900, L100.0100, L300.4310, L500.2500, L503.6620, L501.5425, L501.5200 ####[facility] [address] [place], [address] Creatinine [Mass/Vol] 1.86 mg/dL High 0.70-1.30 [facility] Comment on above: Order Comment: 1Y Result Comment: The validity of the calculated GFR GFRAA in patients over70 years has not been determined. Clinical correlation isessential. Performed By: #### L 300.3900, L100.0100, L300.4310, L500.2500, L503.6620, L501.5425, L501.5200 ####[facility] [address] [place], [address] ECRCL 29.61 ml/min Normal [facility] Comment on above: Order Comment: 1Y Performed By: #### L 300.3900, L100.0100, L300.4310, L500.2500, L503.6620, L501.5425, L501.5200 ####[facility] [address] [place], [address] EST GFR - AA 45 mL/min Low >60 [facility] Comment on above: Order Comment: 1Y Result Comment: Afri can Burmese GFR Calc Performed By: #### L 300.3900, L100.0100, L300.4310, L500.2500, L503.6620, L501.5425, L501.5200 ####[facility] [address] [place], [address] GAP 11 Normal 5-15 [facility] Comment on above: Order Comment: 1Y Performed By: #### L 300.3900, L100.0100, L300.4310, L500.2500, L503.6620, L501.5425, L501.5200 ####[facility] [address] [place], [address] GFR/1.73 sq M.predicted among non-blacks MDRD (S/P/Bld) [Vol rate/Area] 37 mL/min/{1.73_m2} Low >60 [facility] Comment on above: Order Comment: 1Y Result Comment: Non- GFR Calc Performed By: #### L 300.3900, L100.0100, L300.4310, L500.2500, L503.6620, L501.5425, L501.5200 ####[facility] [address] [place], [address] Glucose [Mass/Vol] 369 mg/dL High 74-106 [facility] Comment on above: Order Comment: 1Y Result Comment: Gluc ose result greater than or equal to 200 mg/dLsuggests DIABETES MELLITUS per A.D.A. criteria. Performed By: #### L 300.3900, L100.0100, L300.4310, L500.2500, L503.6620, L501.5425, L501.5200 ####[facility] [address] [place], [address] Potassium [Moles/Vol] 4.1 mmol/L Normal 3.5-5.1 [facility] Comment on above: Order Comment: 1Y Performed By: #### L 300.3900, L100.0100, L300.4310, L500.2500, L503.6620, L501.5425, L501.5200 ####[facility] [address] [place], [address] Sodium [Moles/Vol] 138 mmol/L Normal 136-145 [facility] Comment on above: Order Comment: 1Y Performed By: #### L 300.3900, L100.0100, L300.4310, L500.2500, L503.6620, L501.5425, L501.5200 ####[facility] [address] [place], [address] Urea nitrogen [Mass/Vol] 27 mg/dL High 7-18 [facility] Comment on above: Order Comment: 1Y Performed By: #### L 300.3900, L100.0100, L300.4310, L500.2500, L503.6620, L501.5425, L501.5200 ####[facility] [address] [place], [address] Bedside Glucoseon 09-12-2024 FINGERSTICK GLU 202 mg/dL High [facility]106 [facility] Comment on above: Result Comment: ADITI GEMENT OF PATIENT CARE PER NURSING PROTOCOL Performed By: #### L 501.080 ####[facility] [address] [place], [address] FINGERSTICK GLU 122 mg/dL High [address] [place] [address] Comment on above: Result Comment: ADITI GEMENT OF PATIENT CARE PER NURSING PROTOCOL Performed By: #### L 501.080 ####[facility] [address] [place], [address] FINGERSTICK GLU 398 mg/dL High [facility]106 [facility] Comment on above: Result Comment: ADITI GEMENT OF PATIENT CARE PER NURSING PROTOCOL Performed By: #### L 501.080 ####[facility] [address] [place], [address] FINGERSTICK GLU 377 mg/dL High [address] [place] [address] Comment on above: Result Comment: ADITI GEMENT OF PATIENT CARE PER NURSING PROTOCOL Performed By: #### L 501.080 ####[facility] [address] [place], [address] CBC W/Diff, Automatedon 09-01 Absolute Lymph 2.62 X10 3/uL Normal 0.83-4.51 [facility] Comment on above: Performed By: #### L 300.3900, L100.0100, L300.4310, L500.2500, L503.6620, L501.5425, L501.5200 ####[facility] [address] [place], [address] Absolute Neut 19.7 X10 3/uL High 2.0-7.7 [facility] Comment on above: Performed By: #### L 300.3900, L100.0100, L300.4310, L500.2500, L503.6620, L501.5425, L501.5200 ####[facility] [address] [place], [address] Basophils/100 WBC (Bld) 0.7 % Normal 0-1 [facility] Comment on above: Performed By: #### L 300.3900, L100.0100, L300.4310, L500.2500, L503.6620, L501.5425, L501.5200 ####[facility] [address] [place], [address] Eosinophils/100 WBC (Bld) 0.8 % Normal 0-5 [facility] Comment on above: Performed By: #### L 300.3900, L100.0100, L300.4310, L500.2500, L503.6620, L501.5425, L501.5200 ####[facility] [address] [place], [address] Erythrocyte distribution width (RBC) [Ratio] 13.8 % Normal 11.6-14.6 [facility] Comment on above: Performed By: #### L 300.3900, L100.0100, L300.4310, L500.2500, L503.6620, L501.5425, L501.5200 ####[facility] [address] [place], [address] Hematocrit (Bld) [Volume fraction] 38.9 % Low 40-54 [facility] Comment on above: Performed By: #### L 300.3900, L100.0100, L300.4310, L500.2500, L503.6620, L501.5425, L501.5200 ####[facility] [address] [place], [address] Hemoglobin (Bld) [Mass/Vol] 13.1 g/dL Normal 13.0-16.5 [facility] Comment on above: Performed By: #### L 300.3900, L100.0100, L300.4310, L500.2500, L503.6620, L501.5425, L501.5200 ####[facility] [address] [place], [address] IG% 0.800 Normal 0.0-0.9 [facility] Comment on above: Result Comment: IG% - Immature Granulocytes (promyelocytes, myelocytes andmetamyelocytes) > 1% indicates that a LEFT SHIFT is Present. Performed By: #### L 300.3900, L100.0100, L300.4310, L500.2500, L503.6620, L501.5425, L501.5200 ####[facility] [address] [place], [address] Lymphocytes/100 WBC (Bld) 10.7 % Low 19-41 [facility] Comment on above: Performed By: #### L 300.3900, L100.0100, L300.4310, L500.2500, L503.6620, L501.5425, L501.5200 ####[facility] [address] [place], [address] MCH (RBC) [Entitic mass] 30.6 pg Normal 27.0-32.0 [facility] Comment on above: Performed By: #### L 300.3900, L100.0100, L300.4310, L500.2500, L503.6620, L501.5425, L501.5200 ####[facility] [address] [place], [address] MCHC (RBC) [Mass/Vol] 33.7 g/dL Normal 32-36 [facility] Comment on above: Performed By: #### L 300.3900, L100.0100, L300.4310, L500.2500, L503.6620, L501.5425, L501.5200 ####[facility] [address] [place], [address] MCV (RBC) [Entitic vol] 90.9 fL Normal 80-94 [facility] Comment on above: Performed By: #### L 300.3900, L100.0100, L300.4310, L500.2500, L503.6620, L501.5425, L501.5200 ####[facility] [address] [place], [address] Monocytes/100 WBC (Bld) 6.2 % Normal 0-10 [facility] Comment on above: Performed By: #### L 300.3900, L100.0100, L300.4310, L500.2500, L503.6620, L501.5425, L501.5200 ####[facility] [address] [place], [address] Neutrophils/100 WBC (Bld) 80.8 % High 47-70 [facility] Comment on above: Performed By: #### L 300.3900, L100.0100, L300.4310, L500.2500, L503.6620, L501.5425, L501.5200 ####[facility] [address] [place], [address] Nucleated RBC (Bld) [#/Vol] 0 10*3/uL Normal 0-5 [facility] Comment on above: Performed By: #### L 300.3900, L100.0100, L300.4310, L500.2500, L503.6620, L501.5425, L501.5200 ####[facility] [address] [place], [address] Platelet mean volume (Bld) [Entitic vol] 11.4 fL Normal 6.2-12.0 [facility] Comment on above: Performed By: #### L 300.3900, L100.0100, L300.4310, L500.2500, L503.6620, L501.5425, L501.5200 ####[facility] [id number] [place], [address] Platelets (Bld) [#/Vol] 227 10*3/uL Normal 150-450 [facility] Comment on above: Performed By: #### L 300.3900, L100.0100, L300.4310, L500.2500, L503.6620, L501.5425, L501.5200 ####[facility] [id number] [place], [address] RBC (Bld) [#/Vol] 4.28 10*6/uL Low 4.6-6.2 [facility] Comment on above: Performed By: #### L 300.3900, L100.0100, L300.4310, L500.2500, L503.6620, L501.5425, L501.5200 ####[facility] [address] [place], [address] RDW SD 46.5 fl High 35.1-43.9 [facility] Comment on above: Performed By: #### L 300.3900, L100.0100, L300.4310, L500.2500, L503.6620, L501.5425, L501.5200 ####[facility] [address] [place], [address] WBC (Bld) [#/Vol] 24.4 10*3/uL High 4.4-11.0 [facility] Comment on above: Performed By: #### L 300.3900, L100.0100, L300.4310, L500.2500, L503.6620, L501.5425, L501.5200 ####[facility] [address] [place], [address] Chest 1 View (Portable)on Chest 1 View (Portable) Normal [facility] Echo Completeon 09-12-2024 Echo Complete Normal [facility] Emergency Department Summary on 09-12-2024 Emergency Department Summary Normal [facility] Kidney and Bladderon 024 Kidney and Bladder Normal [facility] L501.4020on 09-12-2024 TROPONIN-I HS 346 pg/mL Invalid Interpretation Code 3.0-78.0 [facility] Comment on above: Order Comment: 'TROP ' Serial specimen #1, #2 or #3: 3 Result Comment: Crit ical Result(s) Called at: 09:19:13 09/12/2024 by:Eve Mendoza to Tania Cruz. Results read back by same. Please Note: New Test Units and Gender Specific Reference Ranges. For more information see Policy Stat Procedure [facility] High Sensitivity Troponin (TNIH) and attachments. Performed By: #### L 501.4020 ####[facility] [address] [place], [address] TROPONIN-I HS 205 pg/mL Invalid Interpretation Code 3.0-78.0 [facility] Comment on above: Result Comment: Crit ical Result(s) Called at: 06:27:52 09/12/2024 by:Eve Mendoza to Steffanie. Results read back by same. Please Note: New Test Units and Gender Specific Reference Ranges. For more information see Policy Stat Procedure [facility] High Sensitivity Troponin (TNIH) and attachments. Performed By: #### L 501.4020 ####[facility] [address] [place], [address] L501.5425on 09-12-2024 TROPONIN-I HS 57 pg/mL Normal 3.0-78.0 [facility] Comment on above: Order Comment: 1Y Result Comment: Plea Note: New Test Units and Gender Specific Reference Ranges. For more information see Policy Stat Procedure [facility] High Sensitivity Troponin (TNIH) and attachments. Performed By: #### L 300.3900, L100.0100, L300.4310, L500.2500, L503.6620, L501.5425, L501.5200 ####[facility] [address] [place], [address] Magnesiumon 09-12-2024 Magnesium [Mass/Vol] 2.1 mg/dL Normal 1.6-2.6 [facility] Comment on above: Order Comment: 1Y Performed By: #### L 300.3900, L100.0100, L300.4310, L500.2500, L503.6620, L501.5425, L501.5200 ####[facility] [address] [place], [address] Partial Thromboplast Timeon 09-12-2024 aPTT Coag (Bld) [Time] 35.1 s Normal 24.1-36.2 [facility] Comment on above: Performed By: #### L 300.3900, L100.0100, L300.4310, L500.2500, L503.6620, L501.5425, L501.5200 ####[facility] [address] [place], [address] Prothrombin Time w/INRon INR Coag (PPP) [Relative time] 1.1 {INR} Normal [facility] Comment on above: Performed By: #### L 300.3900, L100.0100, L300.4310, L500.2500, L503.6620, L501.5425, L501.5200 ####[facility] [address] [place], [address] PT Coag (PPP) [Time] 14.6 s Normal 11.7-14.9 [facility] Comment on above: Performed By: #### L 300.3900, L100.0100, L300.4310, L500.2500, L503.6620, L501.5425, L501.5200 ####[facility] [address] [place], [address] Renal Artery Duplex Ultrasou ndon 09-12-2024 Renal Artery Duplex Ultrasound Normal [facility] CBC W Auto Differential pane l (Bld)on 07-07-2024 Basophils (Bld) [#/Vol] 0.09 x10*3/uL Normal 0.00-0.10 [facility] Comment on above: Performed By: #### 5 7021-8 #### MAGGI PARNELL ([id number]) [facility] ([facility]) [address] [place] [address] 92586 Basophils/100 WBC (Bld) 1.1 % Normal 0.0-2.0 [facility] Comment on above: Performed By: #### 5 7021-8 #### MAGGI PARNELL ([id number]) [facility] ([facility]) [address] [place] [address] 52796 Eosinophils (Bld) [#/Vol] 0.43 x10*3/uL High 0.00-0. 40 [facility] Comment on above: Performed By: #### 5 7021-8 #### MAGGI PARNELL ([id number]) [facility] ([facility]) [address] [place] [address] 80250 Eosinophils/100 WBC (Bld) 5.4 % Normal 0.0-6.0 [facility] Comment on above: Performed By: #### 5 7021-8 #### MAGGI PARNELL ([id number]) [facility] ([facility]) [address] [place] [address] 12210 Erythrocyte distribution width (RBC) [Ratio] 13.5 % Normal 11.5-14.5 [facility] Comment on above: Performed By: #### 5 7021-8 #### MAGGI PARNELL ([id number]) [facility] ([facility]) [address] [place] [address] 06566 Hematocrit (Bld) [Volume fraction] 43.5 % Normal 41.0-52.0 [facility] Comment on above: Performed By: #### 5 7021-8 #### MAGGI PARNELL ([id number]) [facility] ([facility]) [address] [place] [address] 65373 Hemoglobin (Bld) [Mass/Vol] 13.6 g/dL Normal 13.5-17.5 [facility] Comment on above: Performed By: #### 5 7021-8 #### MAGGI PARNELL ([id number]) [facility] ([facility]) [address] [place] [address] 49845 Immature granulocytes (Bld) [#/Vol] 0.02 x10*3/uL Normal 0.00-0.50 [facility] Comment on above: Performed By: #### 5 7021-8 #### MAGGI PARNELL ([id number]) [facility] ([facility]) [address] [place] [address] 05486 Immature granulocytes/100 WBC (Bld) 0.3 % Normal 0.0-0.9 [facility] Comment on above: Result Comment: Arielle ture Granulocyte Count (IG) includes promyelocytes, myelocytes and metamyelocytes but does not include bands. Percent differential counts (%) should be interpreted in the context of the absolute cell counts (cells/UL). Performed By: #### 5 7021-8 #### MAGGI PARNELL ([id number]) [facility] ([facility]) [address] [place] [address] 48235 Lymphocytes (Bld) [#/Vol] 2.08 x10*3/uL Normal 0.80-3. 00 [facility] Comment on above: Performed By: #### 5 7021-8 #### MAGGI PARNELL ([id number]) [facility] ([facility]) [address] [place] [address] 95314 Lymphocytes/100 WBC (Bld) 26.3 % Normal 13.0-44.0 [facility] Comment on above: Performed By: #### 5 7021-8 #### MAGGI PARNELL ([id number]) [facility] ([facility]) [address] [place] [address] 44844 MCH (RBC) [Entitic mass] 30.4 pg Normal 26.0-34.0 [facility] Comment on above: Performed By: #### 5 7021-8 #### MAGGI PARNELL ([id number]) [facility] ([facility]) [address] [place] [address] 16352 MCHC (RBC) [Mass/Vol] 31.3 g/dL Low 32.0-36.0 [facility] Comment on above: Performed By: #### 5 7021-8 #### MAGGI PARNELL ([id number]) [facility] ([facility]) [address] [place] [address] 49776 MCV (RBC) [Entitic vol] 97 fL Normal 80-100 [facility] Comment on above: Performed By: #### 5 7021-8 #### MAGGI PARNELL ([id number]) [facility] ([facility]) [address] [place] [address] 79922 Monocytes (Bld) [#/Vol] 0.60 x10*3/uL Normal 0.05-0.80 [facility] Comment on above: Performed By: #### 5 7021-8 #### MAGGI PARNELL ([id number]) [facility] ([facility]) [address] [place] [address] 94000 Monocytes/100 WBC (Bld) 7.6 % Normal 2.0-10.0 [facility] Comment on above: Performed By: #### 5 7021-8 #### MAGGI PARNELL ([id number]) [facility] ([facility]) [address] [place] [address] 61270 Neutrophils (Bld) [#/Vol] 4.68 x10*3/uL Normal 1.60-5. 50 [facility] Comment on above: Result Comment: Perc ent differential counts (%) should be interpreted in the context of the absolute cell counts (cells/uL). Performed By: #### 5 7021-8 #### MAGGI PARNELL ([id number]) [facility] ([facility]) [address] [place] [address] 68726 Neutrophils/100 WBC (Bld) 59.3 % Normal 40.0-80.0 [facility] Comment on above: Performed By: #### 5 7021-8 #### MAGGI PARNELL ([id number]) [facility] ([facility]) [address] [place] [address] Nucleated RBC/100 WBC (Bld) [Ratio] 0.0 /100 WBCs Normal 0.0-0.0 [facility] Comment on above: Performed By: #### 5 7021-8 #### MAGGI PARNELL ([id number]) [facility] ([facility]) [address] [place] [address] 36006 Platelets (Bld) [#/Vol] 260 x10*3/uL Normal 150-450 [facility] Comment on above: Performed By: #### 5 7021-8 #### MAGGI PARNELL ([id number]) [facility] ([facility]) [address] [place] [address] RBC (Bld) [#/Vol] 4.48 x10*6/uL Low 4.50-5.90 [facility] Comment on above: Performed By: #### 5 7021-8 #### MAGGI PARNELL ([id number]) [facility] ([facility]) [address] [place] [address] WBC (Bld) [#/Vol] 7.9 x10*3/uL Normal 4.4-11.3 [facility] Comment on above: Performed By: #### 5 7021-8 #### MAGGI PARNELL ([id number]) [facility] ([facility]) [address] [place] [address] Comprehensive metabolic 2000 panelon 07-07-2024 Albumin BCP dye [Mass/Vol] 4.3 g/dL Normal 3.4-5.0 [facility] Comment on above: Performed By: #### 2 4323-8 #### MAGGI PARNELL ([id number]) [facility] ([facility]) [address] [place], [place] [address] ALP [Catalytic activity/Vol] 69 U/L Normal 33-136 [facility] Comment on above: Performed By: #### 2 4323-8 #### MAGGI PARNELL ([id number]) [facility] ([facility]) [address] [place] [address] ALT With P-5'-P [Catalytic activity/Vol] 8 U/L Low 10-52 [facility] Comment on above: Result Comment: Twila ents treated with Sulfasalazine may generate falsely decreased results for ALT. Performed By: #### 2 4323-8 #### MAGGI PARNELL ([id number]) [facility] ([facility]) [address] [place] [address] Anion gap [Moles/Vol] 14 mmol/L Normal 10-20 [facility] Comment on above: Performed By: #### 2 4323-8 #### MAGGI PARNELL ([id number]) [facility] ([facility]) [address] [place] [address] AST With P-5'-P [Catalytic activity/Vol] 13 U/L Normal 9-39 [facility] Comment on above: Performed By: #### 2 432-8 #### MAGGI PARNELL ([id number]) [facility] ([facility]) [address] [place] [address] 11516 Bilirubin [Mass/Vol] 0.5 mg/dL Normal 0.0-1.2 [facility] Comment on above: Performed By: #### 2 432-8 #### MAGGI PARNELL ([id number]) [facility] ([facility]) [address] [place] [address] Calcium [Mass/Vol] 9.5 mg/dL Normal 8.6-10.3 [facility] Comment on above: Performed By: #### 2 4323-8 #### MAGGI PARNELL ([id number]) [facility] ([facility]) [address] [place] [address] Chloride [Moles/Vol] 106 mmol/L Normal 98-107 [facility] Comment on above: Performed By: #### 2 4323-8 #### MAGGI PARNELL ([id number]) [facility] ([facility]) [facility] [place] [address] CO2 [Moles/Vol] 27 mmol/L Normal 21-32 [facility] Comment on above: Performed By: #### 2 4323-8 #### MAGGI PARNELL ([id number]) [facility] ([facility]) [address] [place] [address] Creatinine [Mass/Vol] 1.61 mg/dL High 0.50-1.30 [facility] Comment on above: Performed By: #### 2 4323-8 #### MAGGI PARNELL ([id number]) [facility] ([facility]) [address] [place] [address] 97588 Glomerular filtration rate/1.73 sq M.predicted 43 mL/min/1.73m*2 Low >60 [facility] Comment on above: Result Comment: Calc ulations of estimated GFR are performed using the 2020 CKD-EPI Study Refit equation without the race variable for the IDMS-Traceable creatinine methods. https://jasn.asnjournals.org/content///ASN.20 26957853 Performed By: #### 2 4323-8 #### MAGGI PARNELL ([id number]) [facility] ([facility]) [address] [place] [address] 91598 Glucose [Mass/Vol] 119 mg/dL High 74-99 [facility] Comment on above: Performed By: #### 2 4323-8 #### MAGGI PARNELL ([id number]) [facility] ([facility]) [address] [place] [address] 80111 Potassium [Moles/Vol] 4.0 mmol/L Normal 3.5-5.3 [facility] Comment on above: Performed By: #### 2 4323-8 #### MAGGI PARNELL ([id number]) [facility] ([facility]) [address] [place] [address] 24318 Protein [Mass/Vol] 6.8 g/dL Normal 6.4-8.2 [facility] Comment on above: Performed By: #### 2 4323-8 #### MAGGI PARNELL ([id number]) [facility] ([facility]) [address] [place] [address] 28228 Sodium [Moles/Vol] 143 mmol/L Normal 136-145 [facility] Comment on above: Performed By: #### 2 4323-8 #### MAGGI PARNELL ([id number]) [facility] ([facility]) [address] [place] [address] Urea nitrogen [Mass/Vol] 28 mg/dL High 6-23 [facility] Comment on above: Performed By: #### 2 4323-8 #### MAGGI PARNELL ([id number]) [facility] ([facility]) [address] [place] [address] HbA1c (Bld) [Mass fraction]o n 07-07-2024 Average glucose Estimated from glycated hemoglobin (Bld) [Mass/Vol] 180 mg/dL Normal Not Established [facility] Comment on above: Order Comment: Diagn osis of Diabetes-Adults Non-Diabetic: < or = 5.6% Increased risk for developing diabetes: 5.7-6.4% Diagnostic of diabetes: > or = 6.5% Performed By: #### 4 548-4 #### ALENA Paredes ([id number]) [facility] ([facility]) [address] [place] [address] 27806 Hemoglobin A1c/Hemoglobin.to alcira 07-07-2024 HbA1c (Bld) [Mass fraction] 7.9 % High see below [facility] Comment on above: Order Comment: Diagn osis of Diabetes-Adults Non-Diabetic: < or = 5.6% Increased risk for developing diabetes: 5.7-6.4% Diagnostic of diabetes: > or = 6.5% Performed By: #### 4 548-4 #### ALENA Paredes ([id number]) [facility] ([facility]) [address] [place] [address] 63150 Phosphateon 07-07-2024 Phosphate [Mass/Vol] 3.8 mg/dL Normal 2.5-4.9 [facility] Comment on above: Result Comment: The performance characteristics of phosphorus testing in heparinized plasma have been validated by the individual laboratory site where testing is performed. Testing on heparinized plasma is not approved by the FDA; however, such approval is not necessary. Performed By: #### 2 777-1 #### MAGGI PARNELL ([id number]) [facility] ([facility]) [address] [place] [address] 80307 Thyrotropinon 07-07-2024 TSH Qn 0.85 m[IU]/L Normal 0.44-3.98 [facility] Comment on above: Order Comment: TSH t esting is performed using different testing methodology at [facility] than at [facility]. Direct result comparisons should only be made within the same method. Performed By: #### 3 016-3 #### MAGGI PARNELL ([id number]) [facility] ([facility]) [address] [place] [address] 00447 Thyroxine.freeon 07-07-2024 Free T4 [Mass/Vol] 1.01 ng/dL Normal 0.61-1.12 [facility] Comment on above: Order Comment: Thyro xine Free testing is performed using different testing methodology at [facility] than at [facility]. Direct result comparisons should only be [...] By: #### 3 024-7 #### MAGGI PARNELL ([id number]) [facility] ([facility]) [address] [place] [address] Urateon 07-07-2024 Urate [Mass/Vol] 5.7 mg/dL Normal 4.0-7.5 [facility] Comment on above: Result Comment: Hortencia puncture immediately after or during the administration of Metamizole may lead to falsely low results. Testing should be performed immediately prior to Metamizole dosing. Performed By: #### 3 084-1 #### MAGGI PARNELL ([id number]) [facility] ([facility]) [address] [place] [address] 86570 PT D/C Summary (1)on 05-17- 024 PT D/C Summary (1) Normal [facility] Inital Evaluation (1) - PTon 06-19-2024 Inital Evaluation (1) - PT Normal [facility] Albumin/Creatinineon 024 Albumin/Creatinine DL <= 20 mg/L (U) [Mass ratio] 221.6 ug/mg Creat High <30.0 [facility] Comment on above: Performed By: #### 1 4959-1 #### ALENA Paredes ([id number]) [facility] ([facility]) [address] [place] [address] 68211 Albumin/Creatinine DL <= 20 mg/L (U) [Mass ratio]on 02-07-2024 Albumin DL <= 20 mg/L (U) [Mass/Vol] 219.8 mg/L Normal Not established [facility] Comment on above: Performed By: #### 1 4959-1 #### ALENA Paredes ([id number]) [facility] ([facility]) [address] [place] [address] 36360 Creatinine (U) [Mass/Vol] 99.2 mg/dL Normal 20.0-370.0 [facility] Comment on above: Performed By: #### 1 4959-1 #### ALENA Pardees ([id number]) [facility] ([facility]) [address] [place] [address] 32149 Comprehensive metabolic 2000 panelon 02-07-2024 Albumin BCP dye [Mass/Vol] 4.0 g/dL Normal 3.4-5.0 [facility] Comment on above: Performed By: #### 2 4323-8 #### MAGGI PARNELL ([id number]) [facility] ([facility]) [address] [place] [address] 53231 ALP [Catalytic activity/Vol] 77 U/L Normal 33-136 [facility] Comment on above: Performed By: #### 2 4323-8 #### MAGGI PARNELL ([id number]) [facility] ([facility]) [address] [place] [address] 13013 ALT With P-5'-P [Catalytic activity/Vol] 7 U/L Low 10-52 [facility] Comment on above: Result Comment: Twila ents treated with Sulfasalazine may generate falsely decreased results for ALT. Performed By: #### 2 4323-8 #### MAGGI PARNELL ([id number]) [facility] ([facility]) [facility] [place] [address] Anion gap [Moles/Vol] 12 mmol/L Normal 10-20 [facility] Comment on above: Performed By: #### 2 4323-8 #### MAGGI PARNELL ([id number]) [facility] ([facility]) [address] [place] [address] 48961 AST With P-5'-P [Catalytic activity/Vol] 14 U/L Normal 9-39 [facility] Comment on above: Performed By: #### 2 432-8 #### MAGGI PARNELL ([id number]) [facility] ([facility]) [address] [place] [address] 57725 Bilirubin [Mass/Vol] 0.4 mg/dL Normal 0.0-1.2 [facility] Comment on above: Performed By: #### 2 432-8 #### MAGGI PARNELL ([id number]) [facility] ([facility]) [address] [place] [address] 79001 Calcium [Mass/Vol] 9.2 mg/dL Normal 8.6-10.3 [facility] Comment on above: Performed By: #### 2 432-8 #### MAGGI PARNELL ([id number]) [facility] ([facility]) [address] [place] [address] 49666 Chloride [Moles/Vol] 105 mmol/L Normal 98-107 [facility] Comment on above: Performed By: #### 2 4323-8 #### MAGGI PARNELL ([id number]) [facility] ([facility]) [address] [place] [address] 52961 CO2 [Moles/Vol] 29 mmol/L Normal 21-32 [facility] Comment on above: Performed By: #### 2 4323-8 #### MAGGI PARNELL ([id number]) [facility] ([facility]) [address] [place] [address] 81630 Creatinine [Mass/Vol] 1.92 mg/dL High 0.50-1.30 [facility] Comment on above: Performed By: #### 2 4323-8 #### MAGGI PARNELL ([id number]) [facility] ([facility]) [address] [place] [address] 29846 Glomerular filtration rate/1.73 sq M.predicted 35 mL/min/1.73m*2 Low >60 [facility] Comment on above: Result Comment: Calc ulations of estimated GFR are performed using the 2020 CKD-EPI Study Refit equation without the race variable for the IDMS-Traceable creatinine methods. https://jasn.asnjournals.org/content//ASN.20 65885837 Performed By: #### 2 432-8 #### MAGGI PARNELL ([id number]) [facility] ([facility]) [address] [place] [address] 45269 Glucose [Mass/Vol] 81 mg/dL Normal 74-99 [facility] Comment on above: Performed By: #### 2 432-8 #### MAGGI PARNELL ([id number]) [facility] ([facility]) [address] [place] [address] 17596 Potassium [Moles/Vol] 4.5 mmol/L Normal 3.5-5.3 [facility] Comment on above: Performed By: #### 2 432-8 #### MAGGI PARNELL ([id number]) [facility] ([facility]) [address] [place] [address] 94206 Protein [Mass/Vol] 6.4 g/dL Normal 6.4-8.2 [facility] Comment on above: Performed By: #### 2 4323-8 #### MAGGI PARNELL ([id number]) [facility] ([facility]) [address] [place] [address] 55047 Sodium [Moles/Vol] 141 mmol/L Normal 136-145 [facility] Comment on above: Performed By: #### 2 4323-8 #### MAGGI PARNELL ([id number]) [facility] ([facility]) [address] [place] [address] Urea nitrogen [Mass/Vol] 29 mg/dL High 6-23 [facility] Comment on above: Performed By: #### 2 4323-8 #### TAY PARMJIT ([id number]) [facility] ([facility]) [address] [place] [address] Basophil percentageOrdered B y: Ryley Jeter on 12-15-2023 Chloride [Moles/Vol] 109 mmol/L 98-107 [facility] Glucose [Mass/Vol] 126 mg/dL 74-106 [facility] Comment on above: Fasting Glucose resu lt greater than or equal to 126 mg/dL suggests DIABETES MELLITUS per A.D.A. criteria. Potassium [Moles/Vol] 4.1 mmol/L 3.5-5.1 [facility] Sodium [Moles/Vol] 140 mmol/L 136-145 [facility] Laboratory - Chemistry and C hemistry - challengeOrdered By: Ryley Jeter on 12-15-2023 CO2 [Moles/Vol] 29.0 mmol/L 21.0-32.0 [facility] Urea nitrogen/Creatinine [Mass ratio] 14.9 mg/mg 10-20 [facility] No Panel InformationOrdered By: Ryley Jeter on 12-15-2023 Estimated GFR (MDRD) Amer 45 mL/min >60 [facility] Comment on above: GFR Calc Estimated GFR (MDRD) Non-Af Amer 37 mL/min >60 [facility] Comment on above: Non- GFR Calc Serum or plasma calcium nikkie urement (mass/volume)Ordered By: Ryley Jeter on 12-15-2023 Calcium [Mass/Vol] 9.4 mg/dL 8.5-10.1 [facility] Serum or plasma creatinine m easurement (mass/volume)Ordered By: Ryley Jeter on 12-15-2023 Creatinine [Mass/Vol] 1.88 mg/dL 0.70-1.30 [facility] Comment on above: The validity of the calculated GFR & GFRAA in patients over 70 years has not been determined. Clinical correlation is essential. Serum or plasma urea nitroge n measurement (mass/volume)Ordered By: Ryley Jeter on 12-15-2023 Urea nitrogen [Mass/Vol] 28 mg/dL 7-18 [facility] Thin prep Papanicolaou smear with manual screeningOrdered By: Ryley Jeter on 12-15-2023 Thin prep Papanicolaou smear with manual screening 2 5-15 [facility] APTTOrdered By: Burton lr on 12-01-2023 aPTT Coag (Bld) [Time] 35 s High [facility] Basic metabolic 2000 panelon 12-01-2023 Anion gap [Moles/Vol] 10 mmol/L 10 - 2 0 mmol/L [facility] Calcium [Mass/Vol] 8.9 mg/dL 8.4 - 10. 2 mg/dL [facility] Chloride [Moles/Vol] 105 mmol/L 98 - 10 8 mmol/L [facility] Creatinine [Mass/Vol] 1.76 mg/dL High 0.80 - 1.30 mg/dL [facility] GFR/1.73 sq M.predicted CKD-EPI (S/P/Bld) [Vol rate/Area] 39 Low - PINF [facility] Glucose [Mass/Vol] 82 mg/dL 65 - 99 mg/dL [facility] HCO3 [Moles/Vol] 30 mmol/L 21 - 32 mmol/L [facility] Interpretation and review of laboratory results Abnormal [facility] Potassium [Moles/Vol] 3.4 mmol/L Low 3.5 - 5.1 mmol/L [facility] Sodium [Moles/Vol] 142 mmol/L 135 - 145 mmol/L [facility] Urea nitrogen [Mass/Vol] 26 mg/dL High 8 - 25 mg/d L [facility] Urea nitrogen/Creatinine [Mass ratio] 14.8 mg/mg 10.0 - 20.0 [facility] CBC Auto Differentialon 11-03 Basophils (Bld) [#/Vol] 0.06 10*3/uL [facility] Basophils/100 WBC (Bld) 0.7 % [facility] Eosinophils (Bld) [#/Vol] 0.61 10*3/uL High [facility] Eosinophils/100 WBC (Bld) 7.4 % [facility] Erythrocyte distribution width (RBC) [Entitic vol] 13.3 % 11.6 - 14.8 % [facility] Hematoc[facility] (Bld) [Volume fraction] 36.6 % Low 41.0 - 53.0 % [facility] Hemoglobin (Bld) [Mass/Vol] 12.0 g/dL Low 13.5 - 17.5 g/dL [facility] Immature granulocytes (Bld) [#/Vol] 0.02 10*3/uL [facility] Immature granulocytes/100 WBC (Bld) 0.20 % [facility] Interpretation and review of laboratory results Abnormal [facility] Lymphocytes (Bld) [#/Vol] 1.32 10*3/uL [facility] Lymphocytes/100 WBC (Bld) 16.1 % [facility] MCH (RBC) [Entitic mass] 30.5 pg 26. 0 - 34.0 pg [facility] MCHC (RBC) [Mass/Vol] 32.8 g/dL 31.0 - 37.0 g/dL [facility] MCV (RBC) [Entitic vol] 92.9 fL 80.0 - 100.0 fL [facility] Monocytes (Bld) [#/Vol] 0.96 10*3/uL High [facility] Monocytes/100 WBC (Bld) 11.7 % [facility] Neutrophils (Bld) [#/Vol] 5.25 10*3/uL [facility] Neutrophils/100 WBC (Bld) 63.9 % [facility] Nucleated RBC (Bld) [#/Vol] 0.00 10*3/uL [facility] Nucleated RBC/100 WBC (Bld) [Ratio] 0.0 % [facility] Platelet mean volume (Bld) [Entitic vol] 12.4 fL 9.4 - 12.4 fL [facility] Platelets (Bld) [#/Vol] 115 10*3/uL Low [facility] RBC (Bld) [#/Vol] 3.94 10*6/uL Low [facility] WBC (Bld) [#/Vol] 8.22 10*3/uL [facility] Glucose (Bld) [Mass/Vol]on 0 12-01-2023 Glucose [Mass/Vol] 151 mg/dL High 65 - 99 mg/dL [facility] Interpretation and review of laboratory results Abnormal [facility] Glucose [Mass/Vol] 472 mg/dL Critically high 65 - 99 mg/d L [facility] Interpretation and review of laboratory results Abnormal [facility] Glucose [Mass/Vol] 454 mg/dL Critically high 65 - 99 mg/d L [facility] Interpretation and review of laboratory results Abnormal [facility] Glucose [Mass/Vol] 87 mg/dL 65 - 99 mg/dL [facility] Interpretation and review of laboratory results Normal [facility] Magnesium Levelon 12-01-2023 Magnesium [Mass/Vol] 2.1 mg/dL 1.6 - 2 .4 mg/dL [facility] Magnesium [Mass/Vol]on 12-01 Interpretation and review of laboratory results Normal [facility] aPTT Coag (Bld) [Time]Ordere d By: Burton Zendejas on 12-01-2023 Interpretation and review of laboratory results Abnormal [facility] APTTOrdered By: Zoila titus on 11-30-2023 aPTT Coag (Bld) [Time] 35 s High [facility] Basic metabolic 2000 panelon 11-30-2023 Anion gap [Moles/Vol] 9 mmol/L Low 10 - 2 0 mmol/L [facility] Calcium [Mass/Vol] 8.6 mg/dL 8.4 - 10. 2 mg/dL [facility] Chloride [Moles/Vol] 104 mmol/L 98 - 10 8 mmol/L [facility] Creatinine [Mass/Vol] 1.77 mg/dL High 0.80 - 1.30 mg/dL [facility] GFR/1.73 sq M.predicted CKD-EPI (S/P/Bld) [Vol rate/Area] 39 Low - PINF [facility] Glucose [Mass/Vol] 322 mg/dL High 65 - 99 mg/dL [facility] HCO3 [Moles/Vol] 29 mmol/L 21 - 32 mmol/L [facility] Interpretation and review of laboratory results Abnormal [facility] Potassium [Moles/Vol] 3.8 mmol/L 3.5 - 5.1 mmol/L [facility] Sodium [Moles/Vol] 138 mmol/L 135 - 145 mmol/L [facility] Urea nitrogen [Mass/Vol] 30 mg/dL High 8 - 25 mg/d L [facility] Urea nitrogen/Creatinine [Mass ratio] 16.9 mg/mg 10.0 - 20.0 [facility] CBC Auto Differentialon 11-03 Basophils (Bld) [#/Vol] 0.08 10*3/uL [facility] Basophils/100 WBC (Bld) 0.9 % [facility] Eosinophils (Bld) [#/Vol] 0.71 10*3/uL High [facility] Eosinophils/100 WBC (Bld) 8.0 % [facility] Erythrocyte distribution width (RBC) [Entitic vol] 13.5 % 11.6 - 14.8 % [facility] alth Hematocrit (Bld) [Volume fraction] 35.9 % Low 41.0 - 53.0 % [facility] Hemoglobin (Bld) [Mass/Vol] 11.8 g/dL Low 13.5 - 17.5 g/dL [facility] Immature granulocytes (Bld) [#/Vol] 0.03 10*3/uL [facility] Immature granulocytes/100 WBC (Bld) 0.30 % [facility] Interpretation and review of laboratory results Abnormal [facility] Lymphocytes (Bld) [#/Vol] 1.18 10*3/uL [facility] Lymphocytes/100 WBC (Bld) 13.3 % [facility] MCH (RBC) [Entitic mass] 30.5 pg 26. 0 - 34.0 pg [facility] MCHC (RBC) [Mass/Vol] 32.9 g/dL 31.0 - 37.0 g/dL [facility] MCV (RBC) [Entitic vol] 92.8 fL 80.0 - 100.0 fL [facility] Monocytes (Bld) [#/Vol] 0.84 10*3/uL [facility] Monocytes/100 WBC (Bld) 9.4 % [facility] Neutrophils (Bld) [#/Vol] 6.05 10*3/uL [facility] Neutrophils/100 WBC (Bld) 68.1 % [facility] Nucleated RBC (Bld) [#/Vol] 0.00 10*3/uL [facility] Nucleated RBC/100 WBC (Bld) [Ratio] 0.0 % [facility] Platelet mean volume (Bld) [Entitic vol] 12.1 fL 9.4 - 12.4 fL [facility] Platelets (Bld) [#/Vol] 120 10*3/uL Low [facility] RBC (Bld) [#/Vol] 3.87 10*6/uL Low [facility] WBC (Bld) [#/Vol] 8.89 10*3/uL [facility] 01-30 -[facility]24 GE RIS GE RIS [facility] CT Chest WO contrastOrdered By: Alice Kaminski on 11-30-2023 [facility] Work Phone: Echocardiogram completeon Aortic valve area 2.79[address] [facility] AV mean gradient 3.94342 mmHg [facility] AV peak gradient 6.19985 mmHg [facility] EF 63.3016 % [facility] FUJI SYNAPSE CV [facility] Electrocardiogram, 12-leadon 11-30-2023 Atrial Rate 97 BPM [facility] P [place] 77 degrees [facility] P-R Interval 152 ms [facility] Q-T Interval 376 ms [facility] QRS Duration 76 ms [facility] QTC Calculation (Bezet) 477 ms O [facility] R [place] 72 degrees [facility] T [place] 51 degrees [facility] Ventricular Rate 97 BPM [facility] MUSE [facility] Glucose (Bld) [Mass/Vol]on 0 11-30-2023 Glucose [Mass/Vol] 190 mg/dL High 65 - 99 mg/dL [facility] Interpretation and review of laboratory results Abnormal [facility] Glucose [Mass/Vol] 103 mg/dL High 65 - 99 mg/dL [facility] Interpretation and review of laboratory results Abnormal [facility] Magnesium Levelon 11-30-2023 Magnesium [Mass/Vol] 2.2 mg/dL 1.6 - 2 .4 mg/dL [facility] Magnesium [Mass/Vol]on 11-30 Interpretation and review of laboratory results Normal [facility] No Panel Informationon 11-30 [facility] aPTT Coag (Bld) [Time]Ordere d By: Zoila Ruiz on 11-30-2023 Interpretation and review of laboratory results Abnormal [facility] APTTon 11-29-2023 aPTT Coag (Bld) [Time] 38 s High [facility] APTT Heparin Coverageon 11-02 aPTT Coag (Bld) [Time] 98 s High [facility] Interpretation and review of laboratory results Abnormal [facility] APTT Heparin CoverageOrdered By: Tania Escobedo on 11-29-2023 aPTT Coag (Bld) [Time] Critically high [facility] Interpretation and review of laboratory results Abnormal [facility] Bacteria identified Aer cx N om (Sput)Ordered By: Franco Armenta on 11-29-2023 Microscopic observation Gram stain Nom (Sput) Few WBC [facility] Microscopic observation Gram stain Nom (Sput) Few Epithelial Cells [facility] Microscopic observation Gram stain Nom (Sput) Positive [facility] Microscopic observation Gram stain Nom (Sput) Rare Mixed [facility] Basic metabolic 2000 panelon 11-29-2023 Anion gap [Moles/Vol] 7 mmol/L Low 10 - 2 0 mmol/L [facility] Calcium [Mass/Vol] 8.4 mg/dL 8.4 - 10. 2 mg/dL [facility] Chloride [Moles/Vol] 106 mmol/L 98 - 10 8 mmol/L [facility] Creatinine [Mass/Vol] 1.91 mg/dL High 0.80 - 1.30 mg/dL [facility] GFR/1.73 sq M.predicted CKD-EPI (S/P/Bld) [Vol rate/Area] 35 Low - PINF [facility] Glucose [Mass/Vol] 234 mg/dL High 65 - 99 mg/dL [facility] HCO3 [Moles/Vol] 28 mmol/L 21 - 32 mmol/L [facility] Interpretation and review of laboratory results Abnormal [facility] Potassium [Moles/Vol] 4.0 mmol/L 3.5 - 5.1 mmol/L [facility] Sodium [Moles/Vol] 137 mmol/L 135 - 145 mmol/L [facility] Urea nitrogen [Mass/Vol] 34 mg/dL High 8 - 25 mg/d L [facility] Urea nitrogen/Creatinine [Mass ratio] 17.8 mg/mg 10.0 - 20.0 [facility] CBC Auto Differentialon 11-02 Basophils (Bld) [#/Vol] 0.10 10*3/uL [facility] Basophils/100 WBC (Bld) 0.9 % [facility] Eosinophils (Bld) [#/Vol] 0.48 10*3/uL [facility] Eosinophils/100 WBC (Bld) 4.4 % [facility] Erythrocyte distribution width (RBC) [Entitic vol] 14.0 % 11.6 - 14.8 % [facility] alth Hematocrit (Bld) [Volume fraction] 32.8 % Low 41.0 - 53.0 % [facility] Hemoglobin (Bld) [Mass/Vol] 10.7 g/dL Low 13.5 - 17.5 g/dL [facility] Immature granulocytes (Bld) [#/Vol] 0.05 10*3/uL [facility] Immature granulocytes/100 WBC (Bld) 0.50 % [facility] Interpretation and review of laboratory results Abnormal [facility] Lymphocytes (Bld) [#/Vol] 1.92 10*3/uL [facility] Lymphocytes/100 WBC (Bld) 17.7 % [facility] MCH (RBC) [Entitic mass] 30.6 pg 26. 0 - 34.0 pg [facility] MCHC (RBC) [Mass/Vol] 32.6 g/dL 31.0 - 37.0 g/dL [facility] MCV (RBC) [Entitic vol] 93.7 fL 80.0 - 100.0 fL [facility] Monocytes (Bld) [#/Vol] 1.02 10*3/uL High [facility] Monocytes/100 WBC (Bld) 9.4 % [facility] Neutrophils (Bld) [#/Vol] 7.26 10*3/uL High [facility] Neutrophils/100 WBC (Bld) 67.1 % [facility] Nucleated RBC (Bld) [#/Vol] 0.00 10*3/uL [facility] Nucleated RBC/100 WBC (Bld) [Ratio] 0.0 % [facility] Platelet mean volume (Bld) [Entitic vol] 12.1 fL 9.4 - 12.4 fL [facility] Platelets (Bld) [#/Vol] 130 10*3/uL Low [facility] RBC (Bld) [#/Vol] 3.50 10*6/uL Low [facility] ealth WBC (Bld) [#/Vol] 10.83 10*3/uL [facility] CT Chest WO contraston 11-29 Radiology Study observation (narrative) [facility] Glucose (Bld) [Mass/Vol]on 0 11-29-2023 Glucose [Mass/Vol] 174 mg/dL High 65 - 99 [facility] Interpretation and review of laboratory results Abnormal [facility] Glucose [Mass/Vol] 266 mg/dL High 65 - 99 mg/dL [facility] Interpretation and review of laboratory results Abnormal [facility] HbA1c (Bld) [Mass fraction]O rdered By: Lidia Ruff on 11-29-2023 Average glucose Estimated from glycated hemoglobin (Bld) [Mass/Vol] 174 mg/dL High 68 - 114 mg/dL [facility] Interpretation and review of laboratory results Abnormal [facility] Hemoglobin [id number] By: Davina Ruff on 11-29-2023 HbA1c (Bld) [Mass fraction] 7.7 % High 4.0 - 5.6 % [facility] Magnesium Levelon 11-29-2023 Magnesium [Mass/Vol] 2.2 mg/dL 1.6 - 2 .4 mg/dL [facility] Magnesium [Mass/Vol]on 11-29 Interpretation and review of laboratory results Normal [facility] No Panel Informationon 11-29 [facility] Sputum Aerobic CultureOrdere d By: Franco Armenta on 11-29-2023 Bacteria identified Aer cx Nom (Sput) Normal [place] After 48 Hours [facility] aPTT Coag (Bld) [Time]on Interpretation and review of laboratory results Abnormal [facility] APTTon 11-28-2023 aPTT Coag (Bld) [Time] 102 s High [facility] Basic metabolic 2000 panelon 11-28-2023 Anion gap [Moles/Vol] 13 mmol/L 10 - 2 0 mmol/L [facility] Calcium [Mass/Vol] 9.0 mg/dL 8.4 - 10. 2 mg/dL [facility] Chloride [Moles/Vol] 110 mmol/L High 98 - 10 8 mmol/L [facility] Creatinine [Mass/Vol] 1.99 mg/dL High 0.80 - 1.30 mg/dL [facility] GFR/1.73 sq M.predicted CKD-EPI (S/P/Bld) [Vol rate/Area] 34 Low - PINF [facility] Glucose [Mass/Vol] 183 mg/dL High 65 - 99 mg/dL [facility] HCO3 [Moles/Vol] 23 mmol/L 21 - 32 mmol/L [facility] Interpretation and review of laboratory results Abnormal [facility] Potassium [Moles/Vol] 4.3 mmol/L 3.5 - 5.1 mmol/L [facility] Sodium [Moles/Vol] 142 mmol/L 135 - 145 mmol/L [facility] Urea nitrogen [Mass/Vol] 33 mg/dL High 8 - 25 mg/d L [facility] Urea nitrogen/Creatinine [Mass ratio] 16.6 mg/mg 10.0 - 20.0 [facility] Anion gap [Moles/Vol] 9 mmol/L Low 10 - 2 0 mmol/L [facility] Calcium [Mass/Vol] 8.8 mg/dL 8.4 - 10. 2 mg/dL [facility] Chloride [Moles/Vol] 111 mmol/L High 98 - 10 8 mmol/L [facility] Creatinine [Mass/Vol] 2.03 mg/dL High 0.80 - 1.30 mg/dL [facility] GFR/1.73 sq M.predicted CKD-EPI (S/P/Bld) [Vol rate/Area] 33 Low - PINF [facility] Glucose [Mass/Vol] 160 mg/dL High 65 - 99 mg/dL [facility] HCO3 [Moles/Vol] 27 mmol/L 21 - 32 mmol/L [facility] Interpretation and review of laboratory results Abnormal [facility] Potassium [Moles/Vol] 4.3 mmol/L 3.5 - 5.1 mmol/L [facility] Sodium [Moles/Vol] 143 mmol/L 135 - 145 mmol/L [facility] Urea nitrogen [Mass/Vol] 34 mg/dL High 8 - 25 mg/d L [facility] Urea nitrogen/Creatinine [Mass ratio] 16.7 mg/mg 10.0 - 20.0 [facility] Anion gap [Moles/Vol] 10 mmol/L 10 - 2 0 mmol/L [facility] Calcium [Mass/Vol] 8.7 mg/dL 8.4 - 10. 2 mg/dL [facility] Chloride [Moles/Vol] 112 mmol/L High 98 - 10 8 mmol/L [facility] Creatinine [Mass/Vol] 2.03 mg/dL High 0.80 - 1.30 mg/dL [facility] GFR/1.73 sq M.predicted CKD-EPI (S/P/Bld) [Vol rate/Area] 33 Low - PINF [facility] Glucose [Mass/Vol] 119 mg/dL High 65 - 99 mg/dL [facility] HCO3 [Moles/Vol] 24 mmol/L 21 - 32 mmol/L [facility] Interpretation and review of laboratory results Abnormal [facility] Potassium [Moles/Vol] 3.9 mmol/L 3.5 - 5.1 mmol/L [facility] Sodium [Moles/Vol] 142 mmol/L 135 - 145 mmol/L [facility] Urea nitrogen [Mass/Vol] 35 mg/dL High 8 - 25 mg/d L [facility] Urea nitrogen/Creatinine [Mass ratio] 17.2 mg/mg 10.0 - 20.0 [facility] Beta hydroxybutyrate [Moles/ Vol]on 11-28-2023 Interpretation and review of laboratory results Abnormal [facility] Interpretation and review of laboratory results Abnormal [facility] Beta-Hydroxybutyrateon 11-28 Beta hydroxybutyrate [Moles/Vol] 0.8 mmol/L High 0.0 - 0.3 mmol/L [facility] Beta hydroxybutyrate [Moles/Vol] 0.4 mmol/L High 0.0 - 0.3 mmol/L [facility] Beta hydroxybutyrate [Moles/Vol] 0.6 mmol/L High 0.0 - 0.3 mmol/L [facility] CBC Auto Differentialon 11-02 Basophils (Bld) [#/Vol] 0.07 10*3/uL [facility] Basophils/100 WBC (Bld) 0.5 % [facility] Eosinophils (Bld) [#/Vol] 0.09 10*3/uL [facility] Eosinophils/100 WBC (Bld) 0.6 % [facility] Erythrocyte distribution width (RBC) [Entitic vol] 14.3 % 11.6 - 14.8 % [facility] alth Hematocrit (Bld) [Volume fraction] 33.6 % Low 41.0 - 53.0 % [facility] Hemoglobin (Bld) [Mass/Vol] 10.8 g/dL Low 13.5 - 17.5 g/dL [facility] Immature granulocytes (Bld) [#/Vol] 0.05 10*3/uL [facility] Immature granulocytes/100 WBC (Bld) 0.40 % [facility] Interpretation and review of laboratory results Abnormal [facility] Lymphocytes (Bld) [#/Vol] 2.69 10*3/uL [facility] Lymphocytes/100 WBC (Bld) 18.9 % [facility] MCH (RBC) [Entitic mass] 30.4 pg 26. 0 - 34.0 pg [facility] MCHC (RBC) [Mass/Vol] 32.1 g/dL 31.0 - 37.0 g/dL [facility] MCV (RBC) [Entitic vol] 94.6 fL 80.0 - 100.0 fL [facility] Monocytes (Bld) [#/Vol] 1.26 10*3/uL High [facility] Monocytes/100 WBC (Bld) 8.9 % [facility] Neutrophils (Bld) [#/Vol] 10.06 10*3/uL High [facility] Neutrophils/100 WBC (Bld) 70.7 % [facility] Nucleated RBC (Bld) [#/Vol] 0.00 10*3/uL [facility] Nucleated RBC/100 WBC (Bld) [Ratio] 0.0 % [facility] Platelet mean volume (Bld) [Entitic vol] 11.9 fL 9.4 - 12.4 fL [facility] Platelets (Bld) [#/Vol] 151 10*3/uL [facility] RBC (Bld) [#/Vol] 3.55 10*6/uL Low [facility] ealt WBC (Bld) [#/Vol] 14.22 10*3/uL [facility] CRP [Mass/Vol]on 11-28-2023 Interpretation and review of laboratory results Abnormal [facility] CRP, Inflammationon 11-28-19 CRP [Mass/Vol] 11.6 mg/L High [facility] MARYVALEF - 10.0 mg/L [facility] D-Dimer, Quantitativeon 11-02 Fibrin D-dimer FEU (PPP) [Mass/Vol] 1.32 High [facility] Interpretation and review of laboratory results Abnormal [facility] Glucose (Bld) [Mass/Vol]on 0 11-28-2023 Glucose [Mass/Vol] 222 mg/dL High 65 - 99 mg/dL [facility]al Interpretation and review of laboratory results Abnormal [facility] Glucose [Mass/Vol] 182 mg/dL High 65 - 99 mg/dL [facility] Interpretation and review of laboratory results Abnormal [facility] Glucose [Mass/Vol] 286 mg/dL High 65 - 99 mg/dL [facility]Health Interpretation and review of laboratory results Abnormal [facility] Glucose [Mass/Vol] 209 mg/dL High 65 - 99 mg/dL [facility] Interpretation and review of laboratory results Abnormal [facility] Glucose [Mass/Vol] 167 mg/dL High 65 - 99 mg/dL [facility]Health Interpretation and review of laboratory results Abnormal [facility] LDHon 11-28-2023 LDH Lactate to pyruvate reaction [Catalytic activity/Vol] 299 U/L High 100 - 250 U/L [facility] Magnesium Levelon 11-28-2023 Magnesium [Mass/Vol] 2.5 mg/dL High 1.6 - 2 .4 mg/dL [facility] Magnesium [Mass/Vol] 2.6 mg/dL High 1.6 - 2 .4 mg/dL [facility] Magnesium [Mass/Vol] 2.2 mg/dL 1.6 - 2 .4 mg/dL [facility] Magnesium [Mass/Vol]on 11-28 Interpretation and review of laboratory results Abnormal [facility] Interpretation and review of laboratory results Abnormal [facility] Interpretation and review of laboratory results Normal [facility] No Panel Informationon 11-28 Interpretation and review of laboratory results Abnormal [facility] Phosphate [Mass/Vol]on 11-28 Interpretation and review of laboratory results Normal [facility] Interpretation and review of laboratory results Abnormal [facility] Interpretation and review of laboratory results Abnormal [facility] Phosphoruson 11-28-2023 Phosphate [Mass/Vol] 3.6 mg/dL 2.3 - 3 .7 mg/dL [facility] Phosphate [Mass/Vol] 3.8 mg/dL High 2.3 - 3 .7 mg/dL [facility] Phosphate [Mass/Vol] 3.8 mg/dL High 2.3 - 3 .7 mg/dL [facility] aPTT Coag (Bld) [Time]on Interpretation and review of laboratory results Abnormal [facility] APTTOrdered By: Becky Mercado on 11-27-2023 aPTT Coag (Bld) [Time] 78 s High [facility] APTTOrdered By: Anjali Hartmann on 11-27-2023 aPTT Coag (Bld) [Time] 66 s High [facility] APTT Heparin CoverageOrdered By: Yesenia Cardona on 11-27-2023 aPTT Coag (Bld) [Time] 87 s High [facility] Interpretation and review of laboratory results Abnormal [facility] Basic metabolic 2000 panelon 11-27-2023 Anion gap [Moles/Vol] 9 mmol/L Low 10 - 2 0 mmol/L [facility] Calcium [Mass/Vol] 8.7 mg/dL 8.4 - 10. 2 mg/dL [facility] Chloride [Moles/Vol] 113 mmol/L High 98 - 10 8 mmol/L [facility] Creatinine [Mass/Vol] 2.24 mg/dL High 0.80 - 1.30 mg/dL [facility] GFR/1.73 sq M.predicted CKD-EPI (S/P/Bld) [Vol rate/Area] 29 Low - PINF [facility] Glucose [Mass/Vol] 168 mg/dL High 65 - 99 mg/dL [facility] HCO3 [Moles/Vol] 25 mmol/L 21 - 32 mmol/L [facility] Interpretation and review of laboratory results Abnormal [facility] Potassium [Moles/Vol] 3.7 mmol/L 3.5 - 5.1 mmol/L [facility] Sodium [Moles/Vol] 143 mmol/L 135 - 145 mmol/L [facility] Urea nitrogen [Mass/Vol] 37 mg/dL High 8 - 25 mg/d L [facility] Urea nitrogen/Creatinine [Mass ratio] 16.5 mg/mg 10.0 - 20.0 [facility] Anion gap [Moles/Vol] 9 mmol/L Low 10 - 2 0 mmol/L [facility] Calcium [Mass/Vol] 9.0 mg/dL 8.4 - 10. 2 mg/dL [facility] Chloride [Moles/Vol] 113 mmol/L High 98 - 10 8 mmol/L [facility] Creatinine [Mass/Vol] 2.24 mg/dL High 0.80 - 1.30 mg/dL [facility] GFR/1.73 sq M.predicted CKD-EPI (S/P/Bld) [Vol rate/Area] 29 Low - PINF [facility] Glucose [Mass/Vol] 153 mg/dL High 65 - 99 mg/dL [facility] HCO3 [Moles/Vol] 24 mmol/L 21 - 32 mmol/L [facility] Interpretation and review of laboratory results Abnormal [facility] Potassium [Moles/Vol] 4.0 mmol/L 3.5 - 5.1 mmol/L [facility] Sodium [Moles/Vol] 142 mmol/L 135 - 145 mmol/L [facility] Urea nitrogen [Mass/Vol] 39 mg/dL High 8 - 25 mg/d L [facility] Urea nitrogen/Creatinine [Mass ratio] 17.4 mg/mg 10.0 - 20.0 [facility] Anion gap [Moles/Vol] 13 mmol/L 10 - 2 0 mmol/L [facility] Calcium [Mass/Vol] 9.3 mg/dL 8.4 - 10. 2 mg/dL [facility] Chloride [Moles/Vol] 112 mmol/L High 98 - 10 8 mmol/L [facility] Creatinine [Mass/Vol] 2.26 mg/dL High 0.80 - 1.30 mg/dL [facility] GFR/1.73 sq M.predicted CKD-EPI (S/P/Bld) [Vol rate/Area] 29 Low - PINF [facility] Glucose [Mass/Vol] 114 mg/dL High 65 - 99 mg/dL [facility] HCO3 [Moles/Vol] 23 mmol/L 21 - 32 mmol/L [facility] Interpretation and review of laboratory results Abnormal [facility] Potassium [Moles/Vol] 3.7 mmol/L 3.5 - 5.1 mmol/L [facility] Sodium [Moles/Vol] 144 mmol/L 135 - 145 mmol/L [facility] Urea nitrogen [Mass/Vol] 42 mg/dL High 8 - 25 mg/d L [facility] Urea nitrogen/Creatinine [Mass ratio] 18.6 mg/mg 10.0 - 20.0 [facility] Anion gap [Moles/Vol] 13 mmol/L 10 - 2 0 mmol/L [facility] Calcium [Mass/Vol] 9.2 mg/dL 8.4 - 10. 2 mg/dL [facility] Chloride [Moles/Vol] 111 mmol/L High 98 - 10 8 mmol/L [facility] Creatinine [Mass/Vol] 2.35 mg/dL High 0.80 - 1.30 mg/dL [facility] GFR/1.73 sq M.predicted CKD-EPI (S/P/Bld) [Vol rate/Area] 27 Low - PINF [facility] Glucose [Mass/Vol] 340 mg/dL High 65 - 99 mg/dL [facility] HCO3 [Moles/Vol] 21 mmol/L 21 - 32 mmol/L [facility] Interpretation and review of laboratory results Abnormal [facility] Potassium [Moles/Vol] 3.4 mmol/L Low 3.5 - 5.1 mmol/L [facility] Sodium [Moles/Vol] 142 mmol/L 135 - 145 mmol/L [facility] Urea nitrogen [Mass/Vol] 42 mg/dL High 8 - 25 mg/d L [facility] Urea nitrogen/Creatinine [Mass ratio] 17.9 mg/mg 10.0 - 20.0 [facility] Basic metabolic 2000 panelOr dered By: Moody Hughes on 11-27-2023 Anion gap [Moles/Vol] 13 mmol/L 10 - 2 0 mmol/L [facility] Calcium [Mass/Vol] 8.9 mg/dL 8.4 - 10. 2 mg/dL [facility] Chloride [Moles/Vol] 107 mmol/L 98 - 10 8 mmol/L [facility] Creatinine [Mass/Vol] 2.24 mg/dL High 0.80 - 1.30 mg/dL [facility] GFR/1.73 sq M.predicted CKD-EPI (S/P/Bld) [Vol rate/Area] 29 Low - PINF [facility] Glucose [Mass/Vol] 523 mg/dL Critically high 65 - 99 mg/d L [facility] HCO3 [Moles/Vol] 21 mmol/L 21 - 32 mmol/L [facility] Interpretation and review of laboratory results Abnormal [facility] Potassium [Moles/Vol] 4.6 mmol/L 3.5 - 5.1 mmol/L [facility] Sodium [Moles/Vol] 136 mmol/L 135 - 145 mmol/L [facility] Urea nitrogen [Mass/Vol] 42 mg/dL High 8 - 25 mg/d L [facility] Urea nitrogen/Creatinine [Mass ratio] 18.8 mg/mg 10.0 - 20.0 [facility] Beta hydroxybutyrate [Moles/ Vol]on 11-27-2023 Interpretation and review of laboratory results Normal [facility] Interpretation and review of laboratory results Normal [facility] Interpretation and review of laboratory results Normal [facility] Interpretation and review of laboratory results Normal [facility] Beta-Hydroxybutyrateon 11-27 Beta hydroxybutyrate [Moles/Vol] mmol/L 0.0 - 0.3 mmol/L [facility] Beta hydroxybutyrate [Moles/Vol] 0.2 mmol/L 0.0 - 0.3 mmol/L [facility] Beta hydroxybutyrate [Moles/Vol] mmol/L 0.0 - 0.3 mmol/L [facility] Beta hydroxybutyrate [Moles/Vol] 0.2 mmol/L 0.0 - 0.3 mmol/L [facility] Beta hydroxybutyrate [Moles/Vol] 1.9 mmol/L High 0.0 - 0.3 mmol/L [facility] CBC Auto Differentialon 11-02 Basophils (Bld) [#/Vol] 0.04 10*3/uL [facility] Basophils/100 WBC (Bld) 0.2 % [facility] Eosinophils (Bld) [#/Vol] 0.00 10*3/uL [facility] Eosinophils/100 WBC (Bld) 0.0 % [facility] Erythrocyte distribution width (RBC) [Entitic vol] 14.0 % 11.6 - 14.8 % [facility] Hematocrit (Bld) [Volume fraction] 34.0 % Low 41.0 - 53.0 % [facility] Hemoglobin (Bld) [Mass/Vol] 11.1 g/dL Low 13.5 - 17.5 g/dL [facility] Immature granulocytes (Bld) [#/Vol] 0.11 10*3/uL [facility] Immature granulocytes/100 WBC (Bld) 0.50 % [facility] Interpretation and review of laboratory results Abnormal [facility] Lymphocytes (Bld) [#/Vol] 0.91 10*3/uL [facility] Lymphocytes/100 WBC (Bld) 3.8 % [facility] MCH (RBC) [Entitic mass] 30.9 pg 26. 0 - 34.0 pg [facility] MCHC (RBC) [Mass/Vol] 32.6 g/dL 31.0 - 37.0 g/dL [facility] MCV (RBC) [Entitic vol] 94.7 fL 80.0 - 100.0 fL [facility] Monocytes (Bld) [#/Vol] 1.21 10*3/uL High [facility] Monocytes/100 WBC (Bld) 5.1 % [facility] Neutrophils (Bld) [#/Vol] 21.42 10*3/uL High [facility] Neutrophils/100 WBC (Bld) 90.4 % [facility] Nucleated RBC (Bld) [#/Vol] 0.00 10*3/uL [facility] Nucleated RBC/100 WBC (Bld) [Ratio] 0.0 % [facility] Platelet mean volume (Bld) [Entitic vol] 11.9 fL 9.4 - 12.4 fL [facility] Platelets (Bld) [#/Vol] 220 10*3/uL [facility] RBC (Bld) [#/Vol] 3.59 10*6/uL Low [facility] WBC (Bld) [#/Vol] 23.69 10*3/uL High [facility] CRP [Mass/Vol]on 11-27-2023 Interpretation and review of laboratory results Normal [facility] CRP, Inflammationon 11-27-19 CRP [Mass/Vol] mg/L NINF - 10.0 mg/L [facility] Clostridium difficile Testin gOrdered By: Nina Martinez on 11-27-2023 C. difficile Interpretation Negative [facility] Specimen Acceptability Acceptable Oh [facility] ESR Westergren method (Bld) [Velocity]on 11-27-2023 ESR (Bld) [Velocity] 21 mm/h High [facility] Interpretation and review of laboratory results Abnormal [facility] Glucose (Bld) [Mass/Vol]on 0 11-27-2023 Glucose [Mass/Vol] 85 mg/dL 65 - 99 mg/dL [facility] Interpretation and review of laboratory results Normal [facility] Glucose [Mass/Vol] 106 mg/dL High 65 - 99 mg/dL [facility] Interpretation and review of laboratory results Abnormal [facility] Glucose [Mass/Vol] 179 mg/dL High 65 - 99 mg/dL [facility] Interpretation and review of laboratory results Abnormal [facility] Glucose [Mass/Vol] 255 mg/dL High 65 - 99 mg/dL [facility] Interpretation and review of laboratory results Abnormal [facility] Glucose [Mass/Vol] 252 mg/dL High 65 - 99 mg/dL [facility] Interpretation and review of laboratory results Abnormal [facility] Glucose [Mass/Vol] 145 mg/dL High 65 - 99 mg/dL [facility] Interpretation and review of laboratory results Abnormal [facility] Glucose [Mass/Vol] 155 mg/dL High 65 - 99 mg/dL [facility] Interpretation and review of laboratory results Abnormal [facility] Glucose [Mass/Vol] 155 mg/dL High 65 - 99 mg/dL [facility] Interpretation and review of laboratory results Abnormal [facility] Glucose [Mass/Vol] 143 mg/dL High 65 - 99 mg/dL [facility] Interpretation and review of laboratory results Abnormal [facility] Glucose [Mass/Vol] 123 mg/dL High 65 - 99 mg/dL [facility] Interpretation and review of laboratory results Abnormal [facility] Glucose [Mass/Vol] 132 mg/dL High 65 - 99 mg/dL [facility] Interpretation and review of laboratory results Abnormal [facility] Glucose [Mass/Vol] 202 mg/dL High 65 - 99 mg/dL [facility] Interpretation and review of laboratory results Abnormal [facility] Glucose [Mass/Vol] 318 mg/dL High 65 - 99 mg/dL [facility] Interpretation and review of laboratory results Abnormal [facility] Glucose [Mass/Vol] 365 mg/dL High 65 - 99 mg/dL [facility] Interpretation and review of laboratory results Abnormal [facility] Glucose [Mass/Vol] 453 mg/dL Critically high 65 - 99 mg/d L [facility] Interpretation and review of laboratory results Abnormal [facility] Glucose [Mass/Vol] mg/dL Critically high 65 - 99 mg/d L [facility] Interpretation and review of laboratory results Abnormal [facility] Glucose [Mass/Vol] mg/dL Critically high 65 - 99 mg/d L [facility] Interpretation and review of laboratory results Abnormal [facility] Glucose [Mass/Vol] 498 mg/dL Critically high 65 - 99 mg/d L [facility] Interpretation and review of laboratory results Abnormal [facility] Green Topon 11-27-2023 Extra Tube Hold for add-ons. [facility] Comment on above: Auto resulted. [facility] HbA1c (Bld) [Mass fraction]O rdered By: Brent Carrillo on 11-27-2023 Average glucose Estimated from glycated hemoglobin (Bld) [Mass/Vol] 169 mg/dL High 68 - 114 mg/dL [facility] Interpretation and review of laboratory results Abnormal [facility] Hemoglobin [id number] By: Damaris Carrillo on 11-27-2023 HbA1c (Bld) [Mass fraction] 7.5 % High 4.0 - 5.6 % [facility] Hepatic function 2000 panelo n 11-27-2023 Albumin [Mass/Vol] 3.4 g/dL 3.2 - 5.2 g/dL [facility] ALP [Catalytic activity/Vol] 97 U/L 40 - 150 U/L [facility] ALT [Catalytic activity/Vol] 47 U/L 14 - 65 U/L [facility] AST [Catalytic activity/Vol] 74 U/L High 0-50 U/L [facility] Bilirubin [Mass/Vol] 0.7 mg/dL 0.0 - 1 .3 mg/dL [facility] Bilirubin.conjugated [Mass/Vol] 0.2 mg/dL 0.0 - 0.4 mg/dL [facility] Protein [Mass/Vol] 6.3 g/dL 6.0 - 8.0 g/dL [facility] Influenza virus A and B RNA and SARS-CoV-2 (COVID-19) N gene panel ALICE+probe (Resp)Ordered By: Esthela Albright on 11-27-2023 FLUAV RNA ALICE+probe Ql (Unsp spec) Not detected Not Detected [facility] FLUBV RNA ALICE+probe Ql (Unsp spec) Not detected Not Detected [facility] Interpretation and review of laboratory results Abnormal [facility] SARS-CoV-2 (COVID-19) RNA ALICE+probe Ql (Resp) Detected Abnormal Not Detected [facility] Lactate [Moles/Vol]on 2023 Interpretation and review of laboratory results Abnormal [facility] Interpretation and review of laboratory results Normal [facility] Lactic Acid, Plasmaon 2023 Lactate [Moles/Vol] 2.8 mmol/L High 0.6 - 2. 0 mmol/L [facility] Lactate [Moles/Vol] 2.0 mmol/L 0.6 - 2. 0 mmol/L [facility] Legionella Antigen, Urineon 11-27-2023 Interpretation and review of laboratory results Normal [facility] L. pneumophila Ag Ql (U) Negative Neg ative for Legionella antigen [facility] Lipid 1996 panelon Cholesterol [Mass/Vol] 130 mg/dL 100 - 199 mg/dL [facility] Cholesterol in HDL [Mass/Vol] 56 mg/dL 40 - 59 mg/dL [facility] Cholesterol in LDL [Mass/Vol] 61 mg/dL 10 - 130 mg/dL [facility] Cholesterol non HDL [Mass/Vol] 74 mg/dL [facility] Cholesterol.total/Cholest santos in HDL [Mass ratio] 2.3 {ratio} ratio [facility] Triglyceride [Mass/Vol] 67 mg/dL 30 - 150 mg/dL [facility] MRSA DNA Amplified Probeon 0 11-27-2023 MRSA DNA ALICE+probe Ql (Unsp spec) Negative Not Detected, MRSA NEGATIVE [facility] MRSA DNA ALICE+probe Ql (Unsp spec)on 11-27-2023 Interpretation and review of laboratory results Normal [facility] Magnesium Levelon 11-27-2023 Magnesium [Mass/Vol] 1.9 mg/dL 1.6 - 2 .4 mg/dL [facility] Magnesium [Mass/Vol] 2.2 mg/dL 1.6 - 2 .4 mg/dL [facility] Magnesium [Mass/Vol] 2.1 mg/dL 1.6 - 2 .4 mg/dL [facility] Magnesium [Mass/Vol] 2.1 mg/dL 1.6 - 2 .4 mg/dL [facility] Magnesium [Mass/Vol] 2.2 mg/dL 1.6 - 2 .4 mg/dL [facility] Magnesium [Mass/Vol]on 11-27 Interpretation and review of laboratory results Normal [facility] Interpretation and review of laboratory results Normal [facility] Interpretation and review of laboratory results Normal [facility] Interpretation and review of laboratory results Normal [facility] Interpretation and review of laboratory results Normal [facility] NT Pro BNPon 11-27-2023 Natriuretic peptide.B prohormone N-Terminal [Mass/Vol] 68920 pg/mL High 0 - 300 pg/mL [facility] Natriuretic peptide.B prohor katja N-Terminal [Mass/Vol]on 11-27-2023 Interpretation and review of laboratory results Abnormal [facility] No Panel Informationon 11-27 [facility] Interpretation and review of laboratory results Abnormal [facility] Obtain venous blood gases an d performon 11-27-2023 [facility] POC Arterial Blood Gas Panel -Pulmon 11-27-2023 Alveolar-arterial oxygen Partial pressure difference 85.4 mm Hg [facility] Base excess Calc (Bld) [Moles/Vol] -7.1000 mmol/L Low -2.0 - 2.0 [facility] Calcium.ionized [Mass/Vol] 4.7 mg/dL 4.5 - 5.3 mg/dL [facility] Carboxyhemoglobin (BldA) [Mass fraction] 1.3 NINF [facility] Chloride [Moles/Vol] 107 mmol/L 98 - 10 8 mmol/L [facility] CO2 (Bld) [Partial pressure] 31.7 mm[Hg] Low [facility] Glucose post fast [Mass/Vol] 543 mg/dL Critically high 65 - 99 mg/dL [facility] HCO3 (Bld) [Moles/Vol] 17.5 mmol/L Low 22.0 - 26.0 mmol/L [facility] Hematocrit (BldA) [Volume fraction] 37.9 % Low 41.0 - 53.0 % [facility] Hemoglobin (Bld) [Mass/Vol] 12.4 g/dL Low 13.5 - 17.5 g/dL [facility] Inhaled oxygen concentration 30 % [facility] Interpretation and review of laboratory results Abnormal [facility] Lactate [Moles/Vol] 1.7 mmol/L 0.6 - 2. 0 mmol/L [facility] Methemoglobin (BldA) [Mass fraction] % 0.0 - 2.0 % [facility] Oxygen (Bld) [Partial pressure] 84 mm[Hg] [facility] Oxyhemoglobin (BldA) [Mass fraction] 94.5 % 94.0 - 98.0 % [facility] pH (Bld) 7.35 [pH] 7.35 - 7.45 [facility] Potassium [Moles/Vol] 4.6 mmol/L 3.5 - 5.1 mmol/L [facility] Sodium [Moles/Vol] 138 mmol/L 135 - 145 mmol/L [facility] Specimen source Nom (Unsp spec) Radial, right [facility] POC Venous Blood Gas Panel-P ulmon 11-27-2023 Base excess Calc (BldV) [Moles/Vol] -8.4000 mmol/L Low -2.0 - 2.0 [facility] Calcium.ionized [Mass/Vol] 4.4 mg/dL Low 4.5 - 5.3 mg/dL [facility] Carboxyhemoglobin (BldA) [Mass fraction] 2.9 High [facility] Chloride [Moles/Vol] 108 mmol/L 98 - 10 8 mmol/L [facility] CO2 (BldV) [Partial pressure] 26.6 mm[Hg] Low [facility] Glucose post fast [Mass/Vol] 544 mg/dL Critically high 65 - 99 mg/dL [facility] HCO3 (Bld) [Moles/Vol] 15.4 mmol/L Low 24.0 - 28.0 mmol/L [facility] Hematocrit (BldA) [Volume fraction] 36.5 % Low 41.0 - 53.0 % [facility] Hemoglobin (Bld) [Mass/Vol] 11.9 g/dL Low 13.5 - 17.5 g/dL [facility] Inhaled oxygen concentration 30 % [facility] Interpretation and review of laboratory results Abnormal [facility] Lactate [Moles/Vol] 2.5 mmol/L High 0.6 - 2. 0 mmol/L [facility] Methemoglobin (BldA) [Mass fraction] % 0.0 - 2.0 % [facility] Oxygen (BldV) [Partial pressure] 140 mm[Hg] High [facility] Oxygen saturation in Venous blood 99.4 % High 40.0 - 70.0 % [facility] Oxyhemoglobin (BldA) [Mass fraction] 96.3 % No established reference range [facility] pH (BldV) 7.37 [pH] 7.32 - 7.42 [facility] Potassium [Moles/Vol] 4.0 mmol/L 3.5 - 5.1 mmol/L [facility] Sodium [Moles/Vol] 138 mmol/L 135 - 145 mmol/L [facility] Specimen source Nom (Unsp spec) Not specified [facility] Base excess Calc (BldV) [Moles/Vol] -5.8000 mmol/L Low -2.0 - 2.0 [facility] Calcium.ionized [Mass/Vol] 4.7 mg/dL 4.5 - 5.3 mg/dL [facility] Carboxyhemoglobin (BldA) [Mass fraction] 2.9 High [facility] Chloride [Moles/Vol] 107 mmol/L 98 - 10 8 mmol/L [facility] CO2 (BldV) [Partial pressure] 34.1 mm[Hg] Low [facility] Glucose post fast [Mass/Vol] 493 mg/dL Critically high 65 - 99 mg/dL [facility] HCO3 (Bld) [Moles/Vol] 19.0 mmol/L Low 24.0 - 28.0 mmol/L [facility] Hematocrit (BldA) [Volume fraction] 35.4 % Low 41.0 - 53.0 % [facility] Hemoglobin (Bld) [Mass/Vol] 11.5 g/dL Low 13.5 - 17.5 g/dL [facility] Inhaled oxygen concentration 28 % [facility] Inhaled oxygen flow rate 2 L/min [facility] Interpretation and review of laboratory results Abnormal [facility] Lactate [Moles/Vol] 1.8 mmol/L 0.6 - 2. 0 mmol/L [facility] Methemoglobin (BldA) [Mass fraction] % 0.0 - 2.0 % [facility] Oxygen (BldV) [Partial pressure] 63 mm[Hg] High [facility] Oxygen saturation in Venous blood 91.7 % High 40.0 - 70.0 % [facility] Oxyhemoglobin (BldA) [Mass fraction] 88.7 % No established reference range [facility] pH (BldV) 7.36 [pH] 7.32 - 7.42 [facility] Potassium [Moles/Vol] 4.7 mmol/L 3.5 - 5.1 mmol/L [facility] Sodium [Moles/Vol] 138 mmol/L 135 - 145 mmol/L [facility] Specimen source Nom (Unsp spec) Not specified [facility] Phosphate [Mass/Vol]on 11-27 Interpretation and review of laboratory results Normal [facility] Interpretation and review of laboratory results Abnormal [facility] Interpretation and review of laboratory results Normal [facility] Interpretation and review of laboratory results Normal [facility] Interpretation and review of laboratory results Abnormal [facility] Phosphoruson 11-27-2023 Phosphate [Mass/Vol] 2.6 mg/dL 2.3 - 3 .7 mg/dL [facility] Phosphate [Mass/Vol] 4.1 mg/dL High 2.3 - 3 .7 mg/dL [facility] Phosphate [Mass/Vol] 3.0 mg/dL 2.3 - 3 .7 mg/dL [facility] Phosphate [Mass/Vol] 2.3 mg/dL 2.3 - 3 .7 mg/dL [facility] Phosphate [Mass/Vol] 4.1 mg/dL High 2.3 - 3 .7 mg/dL [facility] Reflex Lactic Acid, Plasmaon 11-27-2023 Interpretation and review of laboratory results Normal [facility] Lactate [Moles/Vol] 2.0 mmol/L 0.6 - 2. 0 mmol/L [facility] Interpretation and review of laboratory results Abnormal [facility] Lactate [Moles/Vol] 2.8 mmol/L High 0.6 - 2. 0 mmol/L [facility] Respiratory pathogens DNA an d RNA panel ALICE+non-probe (Nph)Ordered By: Melania Freeman on 11-27-2023 Adenovirus DNA ALICE+non-probe Ql (Nph) Not detected Not Detected [facility] B. parapertussis [id number] DNA ALICE+non-probe Ql (Nph) Not detected Not Detected [facility] B. pertussis toxin promoter region ALICE+non-probe Ql (Nph) Not detected Not Detected [facility] C. pneumoniae DNA ALICE+non-probe Ql (Nph) Not detected Not Detected [facility] FLUAV RNA ALICE+non-probe Ql (Nph) Not detected Not Detected [facility] FLUBV RNA ALICE+non-probe Ql (Nph) Not detected Not Detected [facility] HCoV 229E RNA ALICE+non-probe Ql (Nph) Not detected Not Detected [facility] HCoV HKU1 RNA ALICE+non-probe Ql (Nph) Not detected Not Detected [facility] HCoV NL63 RNA ALICE+non-probe Ql (Nph) Not detected Not Detected [facility] HCoV OC43 RNA ALICE+non-probe Ql (Nph) Not detected Not Detected [facility] hMPV RNA ALICE+non-probe Ql (Nph) Not detected Not Detected [facility] Interpretation and review of laboratory results Normal [facility] M. pneumoniae DNA ALCIE+non-probe Ql (Nph) Not detected Not Detected [facility] Parainfluenza virus 1 RNA ALICE+non-probe Ql (Nph) Not detected Not Detected [facility] Parainfluenza virus 2 RNA ALICE+non-probe Ql (Nph) Not detected Not Detected [facility] Parainfluenza virus 3 RNA ALICE+non-probe Ql (Nph) Not detected Not Detected [facility] Parainfluenza virus 4 RNA ALICE+non-probe Ql (Nph) Not detected Not Detected [facility] Rhinovirus+Enterovirus RNA ALICE+non-probe Ql (Nph) Not detected Not Detected [facility] RSV RNA ALICE+non-probe Ql (Nph) Not detected Not Detected [facility] SARS-CoV-2 (COVID-19) RNA ALICE+non-probe Ql (Nph) Not detected Not Detected [facility] S. pneumoniae Urine AntigenO rdered By: Maxine Hill on 11-27-2023 Interpretation and review of laboratory results Normal [facility] S. pneumoniae Ag Ql (U) Negative Pres umptive Negative for Pneumococcal pneumoniae [facility] TSH DL <= 0.005 mIU/L Qnon 0 11-27-2023 Interpretation and review of laboratory results Normal [facility] TSH Qn 0.35 m[IU]/L [facility] Tropinin I.cardiac panel Hig h sensitivity methodon 11-27-2023 Interpretation and review of laboratory results Abnormal [facility] Less than 99th percentile of normal [...] performed using a different testing methodology at [facility] [facility] than at other [facility]. Direct result comparisons should only be made within the same method. [facility] Troponin I, High Sensitivity on 11-27-2023 Tropinin I.cardiac panel High sensitivity method 6445 ng/L Critically high 0 - 20 ng/L [facility] Comment on above: Previous result zay boss on 11/26/2023 2158 on specimen/case [id number] called with component [facility] for procedure Troponin I, High Sensitivity with value 2,361 ng/L. Troponin x 2 (Now and Repeat in 3 hours)Ordered By: Stephanie Carlton on 11-27-2023 Delta % Troponin I -6 % <20% of Baseline Troponin [facility] Inter Troponin I Delta Change Probable non-acute cardiac injury or late presentation of acute injury. [facility] Interpretation and review of laboratory results Abnormal [facility] Troponin I 9349 ng/L Critically high NINF - 59 ng/L [facility] Troponin x 2 (Now and Repeat in 3 hours)on 11-27-2023 Interpretation and review of laboratory results Abnormal [facility] Troponin I 9973 ng/L Critically high NINF - 59 ng/L [facility] Troponin I Interpretation Possible acute cardiac injury. [facility] XR Chest PA and Abdomen APon 11-27-2023 GE RIS GE RIS [facility] Radiology Study observation (narrative) [facility] XR Chest PA and Abdomen APOr dered By: Malika Painting on 11-27-2023 [facility] Work Phone: aPTT Coag (Bld) [Time]Ordere d By: Becky Mercado on 11-27-2023 Interpretation and review of laboratory results Abnormal [facility] aPTT Coag (Bld) [Time]Orderariela d By: Anjali Hartmann on 11-27-2023 Interpretation and review of laboratory results Abnormal [facility] CBC W Auto Differential pane l (Bld)on 11-26-2023 Basophils (Bld) [#/Vol] 0.05 10*3/uL [facility] Basophils/100 WBC (Bld) 0.2 % 0.0 - 2.0 % [facility] Eosinophils (Bld) [#/Vol] 0.00 10*3/uL [facility] Eosinophils/100 WBC (Bld) 0.0 % 0.0 - 6.0 % [facility] Erythrocyte distribution width (RBC) [Ratio] 13.8 % 11.5 - 14.5 % [facility] Hematocrit (Bld) [Volume fraction] 38.0 % Low 41.0 - 52.0 % [facility] Hemoglobin (Bld) [Mass/Vol] 12.2 g/dL Low 13.5 - 17.5 g/dL [facility] Immature granulocytes (Bld) [#/Vol] 0.12 10*3/uL [facility] Immature granulocytes/100 WBC (Bld) 0.6 % 0.0 - 0.9 % [facility] Comment on above: Immature Granulocyte Count (IG) includes promyelocytes, myelocytes and metamyelocytes but does not include bands. Percent differential counts (%) should be interpreted in the context of the absolute cell counts (cells/UL). Interpretation and review of laboratory results Abnormal [facility] Lymphocytes (Bld) [#/Vol] 2.01 10*3/uL [facility] Lymphocytes/100 WBC (Bld) 9.8 % 13.0 - 44. 0 % [facility] MCH (RBC) [Entitic mass] 30.5 pg 26. 0 - 34.0 pg [facility] MCHC (RBC) [Mass/Vol] 32.1 g/dL 32.0 - 36.0 g/dL [facility] MCV (RBC) [Entitic vol] 95 fL 80 - 100 fL [facility] Monocytes (Bld) [#/Vol] 0.75 10*3/uL [facility] Monocytes/100 WBC (Bld) 3.7 % 2.0 - 10.0 % [facility] Neutrophils (Bld) [#/Vol] 17.49 10*3/uL High [facility] Comment on above: Percent differential counts (%) should be interpreted in the context of the absolute cell counts (cells/uL). Neutrophils/100 WBC (Bld) 85.7 % 40.0 - 80. 0 % [facility] Nucleated RBC/100 WBC (Bld) [Ratio] 0.0 % [facility] Platelets (Bld) [#/Vol] 281 10*3/uL [facility] RBC (Bld) [#/Vol] 4.00 10*6/uL Low Unive [facility] WBC (Bld) [#/Vol] 20.4 10*3/uL High [facility] Comprehensive metabolic 2000 panelon 11-26-2023 Albumin BCP dye [Mass/Vol] 4.2 g/dL 3.4 - 5.0 g/dL [facility] ALP [Catalytic activity/Vol] 101 U/L 33 - 136 U/L [facility] ALT With P-5'-P [Catalytic activity/Vol] 38 U/L 10 - 52 U/L [facility] Comment on above: Patients treated wit h Sulfasalazine may generate falsely decreased results for ALT. Anion gap [Moles/Vol] 17 mmol/L 10 - 2 0 mmol/L [facility] AST With P-5'-P [Catalytic activity/Vol] 53 U/L High 9 - 39 U/L [facility] Bilirubin [Mass/Vol] 0.6 mg/dL 0.0 - 1 .2 mg/dL [facility] Calcium [Mass/Vol] 9.2 mg/dL 8.6 - 10. 3 mg/dL [facility] Chloride [Moles/Vol] 106 mmol/L 98 - 10 7 mmol/L [facility] CO2 [Moles/Vol] 17 mmol/L Low 21 - 32 mmol/L [facility] Creatinine [Mass/Vol] 1.96 mg/dL High 0.50 - 1.30 mg/dL [facility] GFR/1.73 sq M.predicted among non-blacks MDRD (S/P/Bld) [Vol rate/Area] 34 mL/min/{1.73_m2} Low - PINF Un [facility] Comment on above: Calculations of albin mated GFR are performed using the 2020 CKD-EPI Study Refit equation without the race variable for the IDMS-Traceable creatinine methods. https://jasn.asnjournals.org/content//ASN.20 38674036 Glucose [Mass/Vol] 492 mg/dL Critically high 74 - 99 mg/d L [facility] Comment on above: Confirmed by repeat analysis Interpretation and review of laboratory results Abnormal [facility] Potassium [Moles/Vol] 4.5 mmol/L 3.5 - 5.3 mmol/L [facility] Protein [Mass/Vol] 6.7 g/dL 6.4 - 8.2 g/dL [facility] Sodium [Moles/Vol] 135 mmol/L Low 136 - 145 mmol/L [facility] Urea nitrogen [Mass/Vol] 35 mg/dL High 6 - 23 mg/d L [facility] Critical Careon 11-26-2023 Ger Bansal DO [...] discussed with: accepting provider at another facility [facility] Work Phone: [facility] Work Phone: Lactateon 11-26-2023 Lactate [Moles/Vol] 3.2 mmol/L High 0.4 - 2. 0 mmol/L [facility] Lactate [Moles/Vol] 3.8 mmol/L High 0.4 - 2. 0 mmol/L [facility] Lactate [Moles/Vol]on 2023 Interpretation and review of laboratory results Abnormal [facility] Venipuncture immediately after or during the administration of Metamizole may lead to falsely low results. Testing should be performed immediately prior to Metamizole dosing. [facility] Interpretation and review of laboratory results Abnormal [facility] Venipuncture immediately after or during the administration of Metamizole may lead to falsely low results. Testing should be performed immediately prior to Metamizole dosing. [facility] MRSA DNA ALICE+probe Ql (Nose) on 11-26-2023 Interpretation and review of laboratory results Normal [facility] MRSA DNA ALICE+probe Ql (Unsp spec) Not detected Not Detected [facility] This assay is an FDA-approved in [...] patients less than two years of age. [facility] Magnesiumon 11-26-2023 Magnesium [Mass/Vol] 2.20 mg/dL 1.60 - 2.40 mg/dL [facility] Magnesium [Mass/Vol]on 11-26 Interpretation and review of laboratory results Normal [facility] Natriuretic peptide B [Mass/ Vol]on 11-26-2023 Interpretation and review of laboratory results Abnormal [facility] Natriuretic peptide B (Bld) [Mass/Vol] 902 pg/mL High 0 - 99 pg/mL [facility] <100 pg/mL - Heart failure unlikely 100-299 pg/mL - Intermediate probability of acute heart failure exacerbation. Correlate with clinical context and patient history. >=300 pg/mL - Heart Failure likely. Correlate with clinical context and patient history. BNP testing is performed using different testing methodology at [facility] than at other [facility]. Direct result comparisons should only be made within the same method. [facility] No Panel Informationon 11-26 [facility] Interpretation and review of laboratory results Normal [facility] PT Coag (PPP) [Time]on 11-26 INR Coag (PPP) [Relative time] 1.1 {INR} 0.9 - 1.1 [facility] Protime-INRon 11-26-2023 PT Coag (PPP) [Time] 12.3 s [facility] Tropinin I.cardiac panel Hig h sensitivity methodon 11-26-2023 Interpretation and review of laboratory results Abnormal [facility] Less than 99th percentile of normal [...] performed using a different testing methodology at [facility] than at other [facility]. Direct result comparisons should only be made within the same method. [facility] Interpretation and review of laboratory results Abnormal [facility] Less than 99th percentile of normal [...] performed using a different testing methodology at [facility] than at other [facility]. Direct result comparisons should only be made within the same method. [facility] Troponin I, High Sensitivity on 11-26-2023 Tropinin I.cardiac panel High sensitivity method 3473 ng/L Critically high 0 - 20 ng/L [facility] Comment on above: Previous result veri fied on 11/26/2023 2158 on specimen/case [id number] called with component [facility] for procedure Troponin I, High Sensitivity with value 2,361 ng/L. Tropinin I.cardiac panel High sensitivity method 2361 ng/L Critically high 0 - 20 ng/L [facility] XR Chest Single viewon 11-26 Pulmonary vascular congestive change and edema and small bilateral pleural effusions. There is asymmetric opacity in the right lower lung concerning for superimposed pneumonia. 10 mm nodular opacity at the left lung base; follow-up dedicated CT chest is recommended to exclude underlying pulmonary nodule. MACRO: None Signed by: Ghassan Tovar 11/26/2023 10:02 PM Dictation workstation: [id number] [facility]AL Interpreted By: Ghassan Tovar, STUDY: XR CHEST 1 VIEW; 11/26/2023 9:31 pm INDICATION: Signs/Symptoms:dyspn ea. COMPARISON: 10/13/2023 ACCESSION NUMBER(S): [id number] ORDERING CLINICIAN: GER BANSAL FINDINGS: The cardiac silhouette is stable in size. There is pulmonary vascular congestive change and edema. Small bilateral pleural effusions. There is 10 mm nodular opacity at the left lung base. No pneumothorax [facility] MM[facility]AL Ghassan Tovar MD - 11/26/2023 Interpreted By: Ghassan Tovar, STUDY: XR CHEST 1 VIEW; 11/26/2023 9:31 pm INDICATION: Signs/Symptoms:dyspn ea. COMPARISON: 10/13/2023 ACCESSION NUMBER(S): [id number] ORDERING CLINICIAN: GER BANSAL FINDINGS: The cardiac [...] Ghassan Tovar 11/26/2023 10:02 PM Dictation workstation: [id number] [facility] Work Phone: Radiology Study observation (narrative) [facility] Work Phone: XR Chest Single viewOrdered By: Ghassan Tovar on 11-26-2023 [facility] Work Phone: aPTTon 11-26-2023 aPTT Coag (PPP) [Time] 38 s Un [facility] aPTT Coag (PPP) [Time]on The APTT is no longer used for monitoring Unfractionated Heparin Therapy. For monitoring Heparin Therapy, use the Heparin Assay. [facility] Absolute lymphocyte countOrd ered By: Ryley Jeter on 11-25-2023 Lymphocytes Auto (Unsp spec) [#/Vol] 1.79 10*3/uL 0.83-4.51 [facility] Automated lymphocyte count a s percentage of total leukocytesOrdered By: Ryley Jeter on 11-25-2023 Lymphocytes/100 WBC Auto (Unsp spec) 19.7 % 19-41 [facility] Basophil percentageOrdered B y: Ryley Jeter on 11-25-2023 Basophils/100 WBC (Bld) 1.0 % 0-1 [facility] Bilirubin [Mass/Vol] 0.50 mg/dL 0.20-1.00 [facility] Comment on above: For patients on eltr ombopag therapy, use of [facility] TBIL is not recommended. Chloride [Moles/Vol] 113 mmol/L 98-107 [facility] Eosinophils/100 WBC (Bld) 2.3 % 0-5 [facility] Glucose [Mass/Vol] 130 mg/dL 74-106 [facility] Comment on above: Fasting Glucose resu lt greater than or equal to 126 mg/dL suggests DIABETES MELLITUS per A.D.A. criteria. Hemoglobin (Bld) [Mass/Vol] 12.2 g/dL 13.0-16.5 [facility] Monocytes/100 WBC (Bld) 7.5 % 0-10 [facility] Neutrophils (Bld) [#/Vol] 6.3 10*3/uL 2.0-7.7 [facility] Neutrophils/100 WBC (Bld) 69.2 % 47-70 [facility] Potassium [Moles/Vol] 4.3 mmol/L 3.5-5.1 [facility] Protein [Mass/Vol] 7.1 g/dL 6.4-8.2 [facility] Sodium [Moles/Vol] 142 mmol/L 136-145 [facility] WBC (Bld) [#/Vol] 9.1 10*3/uL 4.4-11.0 [facility] Determination of erythrocyte mean corpuscular volume (MCV)Ordered By: Ryley Jeter on 11-25-2023 MCV (RBC) [Entitic vol] 93.5 fL 80-94 [facility] Erythrocyte distribution wid th ratioOrdered By: Ryley Jeter on 11-25-2023 Erythrocyte distribution width (RBC) [Ratio] 14.1 % 11.6-14.6 [facility] Erythrocyte distribution wid th standard deviationOrdered By: Ryley Jeter on 11-25-2023 Erythrocyte distribution width (RBC) [Entitic vol] 47.9 fL 35.1-43.9 [facility] Hematocrit Auto (Bld) [Volum e fraction]Ordered By: Ryley Jeter on 11-25-2023 Hematocrit (Bld) [Volume fraction] 37.7 % 40-54 [facility] Immature granulocytes/100 WB C Auto (Bld)Ordered By: Ryley Jeter on 11-25-2023 Immature granulocytes/100 WBC (Bld) 0.300 % 0.0-0.9 [facility] Comment on above: IG% - Immature Granu locytes (promyelocytes, myelocytes and metamyelocytes) > 1% indicates that a LEFT SHIFT is Present. Laboratory - Chemistry and C hemistry - challengeOrdered By: Ryley Jeter on 11-25-2023 Albumin/Globulin [Mass ratio] 1.0 {ratio} 0.9-2.4 [facility] ALP [Catalytic activity/Vol] 98 U/L 45-117 [facility] ALT [Catalytic activity/Vol] 25 U/L 16-61 [facility] CO2 [Moles/Vol] 25.0 mmol/L 21.0-32.0 [facility] Globulin (S) [Mass/Vol] 3.5 g/dL 2.2-4.2 [facility] Urea nitrogen/Creatinine [Mass ratio] 13.5 mg/mg 10-20 [facility] Laboratory - Hematology and Cell countsOrdered By: Ryley Jeter on 11-25-2023 MCH (RBC) [Entitic mass] 30.3 pg 27.0-32.0 [facility] MCHC (RBC) [Mass/Vol] 32.4 g/dL 32-36 [facility] Nucleated RBC/100 WBC (Bld) [Ratio] 0 % 0-5 [facility] Platelets (Bld) [#/Vol] 239 10*3/uL 150-450 [facility] No Panel InformationOrdered By: Ryley Jeter on 11-25-2023 Estimated GFR (MDRD) Amer 55 mL/min >60 [facility] Comment on above: GFR Calc Estimated GFR (MDRD) Non-Af Amer 46 mL/min >60 [facility] Comment on above: Non- GFR Calc Platelet mean volume Kodi-Ec ker (Bld) [Entitic vol]Ordered By: Ryley Jeter on 11-25-2023 Platelet mean volume (Bld) [Entitic vol] 11.3 fL 6.2-12.0 [facility] RBC Auto (Bld) [#/Vol]Ordere d By: Ryley Jeter on 11-25-2023 RBC (Bld) [#/Vol] 4.03 10*6/uL 4.6-6.2 [facility] Serum or plasma calcium nikkie urement (mass/volume)Ordered By: Ryley Jeter on 11-25-2023 Calcium [Mass/Vol] 9.5 mg/dL 8.5-10.1 [facility] Serum or plasma creatinine m easurement (mass/volume)Ordered By: Ryley Jeter on 11-25-2023 Creatinine [Mass/Vol] 1.56 mg/dL 0.70-1.30 [facility] Comment on above: The validity of the calculated GFR & GFRAA in patients over 70 years has not been determined. Clinical correlation is essential. Serum or plasma thyroid stim ulating hormone (TSH) measurement (units/volume)Or[facility] on 11-25-2023 TSH Qn 0.80 uIU/mL 0.358-3.74 [facility] Serum or plasma urea nitroge n measurement (mass/volume)Ordered By: Ryley Steffany on 11-25-2023 Urea nitrogen [Mass/Vol] 21 mg/dL 7-18 [facility] Thin prep Papanicolaou smear with manual screeningOrdered By: [facility] on 11-25-2023 Thin prep Papanicolaou smear with manual screening 3.6 g/dL 3.2-5.0 [facility] Thin prep Papanicolaou smear with manual screening 23 U/L 15-37 [facility] Thin prep Papanicolaou smear with manual screening 4 5-15 [facility] Basophil percentageOrdered B y: Jana Ferguson on 10-22-2023 Chloride [Moles/Vol] 111 mmol/L 98-107 [facility] Glucose [Mass/Vol] 120 mg/dL 74-106 [facility] Comment on above: Fasting Glucose resu lt from 100 to 125 mg/dL suggests IMPAIRED HOMEOSTASIS per A.D.A. criteria. Potassium [Moles/Vol] 4.7 mmol/L 3.5-5.1 [facility] Sodium [Moles/Vol] 140 mmol/L 136-145 [facility] WBC (Bld) [#/Vol] 9.1 10*3/uL 4.4-11.0 [facility] Blood erythrocytes count (nu mber/volume)Ordered By: Jana Ferguson on 10-22-2023 RBC (Bld) [#/Vol] 4.16 10*6/uL 4.6-6.2 [facility] Blood hemoglobin measurement (mass/volume)Ordered By: Jana Ferguson on 10-22-2023 Hemoglobin (Bld) [Mass/Vol] 12.3 g/dL 13.0-16.5 [facility] Blood platelet mean volumeOr dered By: Jana Ferguson on 10-22-2023 Platelet mean volume (Bld) [Entitic vol] 11.6 fL 6.2-12.0 [facility] Determination of erythrocyte mean corpuscular volume (MCV)Ordered By: Jana Ferguson on 10-22-2023 MCV (RBC) [Entitic vol] 93.0 fL 80-94 [facility] Hematocrit Auto (Bld) [Volum e fraction]Ordered By: Jana Ferguson on 10-22-2023 Hematocrit (Bld) [Volume fraction] 38.7 % 40-54 [facility] Laboratory - Chemistry and C hemistry - challengeOrdered By: Jana Ferguson on 10-22-2023 CO2 [Moles/Vol] 27.0 mmol/L 21.0-32.0 [facility] Urea nitrogen/Creatinine [Mass ratio] 20.9 mg/mg 10-20 [facility] Laboratory - Hematology and Cell countsOrdered By: Jana Ferguson on 10-22-2023 Erythrocyte distribution width (RBC) [Entitic vol] 44.3 fL 35.1-43.9 [facility] Erythrocyte distribution width (RBC) [Ratio] 13.0 % 11.6-14.6 [facility] MCH (RBC) [Entitic mass] 29.6 pg 27.0-32.0 [facility] MCHC Auto (RBC) [Mass/Vol]Or dered By: Jana Ferguson on 10-22-2023 MCHC (RBC) [Mass/Vol] 31.8 g/dL 32-36 [facility] No Panel InformationOrdered By: Jana Ferguson on 10-22-2023 Estimated GFR (MDRD) Amer 40 mL/min >60 [facility] Comment on above: GFR Calc Estimated GFR (MDRD) Non-Af Amer 33 mL/min >60 [facility] Comment on above: Non- GFR Calc Platelets bldOrdered By: Jadyn Ferguson on 10-22-2023 Platelets (Bld) [#/Vol] 304 10*3/uL 150-450 [facility] Serum or plasma calcium nikkie urement (mass/volume)Ordered By: Jana Ferguson on 10-22-2023 Calcium [Mass/Vol] 9.1 mg/dL 8.5-10.1 [facility] Serum or plasma creatinine m easurement (mass/volume)Ordered By: Jana Ferguson on 10-22-2023 Creatinine [Mass/Vol] 2.06 mg/dL 0.70-1.30 [facility] Comment on above: The validity of the calculated GFR & GFRAA in patients over 70 years has not been determined. Clinical correlation is essential. Serum or plasma urea nitroge n measurement (mass/volume)Ordered By: Jana Ferguson on 10-22-2023 Urea nitrogen [Mass/Vol] 43 mg/dL 7-18 [facility] Thin prep Papanicolaou smear with manual screeningOrdered By: Jana Ferguson on 10-22-2023 Thin prep Papanicolaou smear with manual screening 2 5-15 [facility] Basic metabolic 2000 panelon 10-13-2023 Anion gap [Moles/Vol] 17 mmol/L 10 - 2 0 mmol/L [facility] Calcium [Mass/Vol] 8.3 mg/dL Low 8.6 - 10. 3 mg/dL [facility] Chloride [Moles/Vol] 102 mmol/L 98 - 10 7 mmol/L [facility] CO2 [Moles/Vol] 22 mmol/L 21 - 32 mmol/L [facility] Creatinine [Mass/Vol] 2.30 mg/dL High 0.50 - 1.30 mg/dL [facility] GFR/1.73 sq M.predicted MDRD (S/P/Bld) [Vol rate/Area] 28 mL/min/{1.73_m2} Low - PINF [facility] Comment on above: Calculations of albin mated GFR are performed using the 2020 CKD-EPI Study Refit equation without the race variable for the IDMS-Traceable creatinine methods. https://jasn.asnjournals.org/content//ASN.20 64565513 Glucose [Mass/Vol] 327 mg/dL High 74 - 99 mg/dL [facility] Interpretation and review of laboratory results Abnormal [facility] Potassium [Moles/Vol] 4.9 mmol/L 3.5 - 5.3 mmol/L [facility] Sodium [Moles/Vol] 136 mmol/L 136 - 145 mmol/L [facility] Urea nitrogen [Mass/Vol] 57 mg/dL High 6 - 23 mg/d L [facility] CBC W Auto Differential pane l (Bld)on 10-13-2023 Basophils (Bld) [#/Vol] 0.02 10*3/uL [facility] Basophils/100 WBC (Bld) 0.1 % 0.0 - 2.0 % [facility] Eosinophils (Bld) [#/Vol] 0.00 10*3/uL [facility] Eosinophils/100 WBC (Bld) 0.0 % 0.0 - 6.0 % [facility] Erythrocyte distribution width (RBC) [Ratio] 13.2 % 11.5 - 14.5 % [facility] Hematocrit (Bld) [Volume fraction] 36.4 % Low 41.0 - 52.0 % [facility] Hemoglobin (Bld) [Mass/Vol] 12.4 g/dL Low 13.5 - 17.5 g/dL [facility] Immature granulocytes (Bld) [#/Vol] 0.11 10*3/uL [facility] Immature granulocytes/100 WBC (Bld) 0.6 % 0.0 - 0.9 % [facility] Comment on above: Immature Granulocyte Count (IG) includes promyelocytes, myelocytes and metamyelocytes but does not include bands. Percent differential counts (%) should be interpreted in the context of the absolute cell counts (cells/UL). Interpretation and review of laboratory results Abnormal [facility] Lymphocytes (Bld) [#/Vol] 1.30 10*3/uL [facility] Lymphocytes/100 WBC (Bld) 7.3 % 13.0 - 44. 0 % [facility] MCH (RBC) [Entitic mass] 31.0 pg 26. 0 - 34.0 pg [facility] MCHC (RBC) [Mass/Vol] 34.1 g/dL 32.0 - 36.0 g/dL [facility] MCV (RBC) [Entitic vol] 91 fL 80 - 100 fL [facility] Monocytes (Bld) [#/Vol] 1.15 10*3/uL [facility] Monocytes/100 WBC (Bld) 6.5 % 2.0 - 10.0 % [facility] Neutrophils (Bld) [#/Vol] 15.21 10*3/uL [facility] Comment on above: Percent differential counts (%) should be interpreted in the context of the absolute cell counts (cells/uL). Neutrophils/100 WBC (Bld) 85.5 % 40.0 - 80. 0 % [facility] Nucleated RBC/100 WBC (Bld) [Ratio] 0.0 % [facility] Platelets (Bld) [#/Vol] 153 10*3/uL [facility] RBC (Bld) [#/Vol] 4.00 10*6/uL Low Unive [facility] WBC (Bld) [#/Vol] 17.8 10*3/uL High Unive [facility] Glucose Test strip manual (B ld) [Mass/Vol]on 10-13-2023 Glucose [Mass/Vol] 329 mg/dL High 74 - 99 mg/dL [facility] Interpretation and review of laboratory results Abnormal [facility] Glucose [Mass/Vol] 304 mg/dL High 74 - 99 mg/dL [facility] Interpretation and review of laboratory results Abnormal [facility] Glucose [Mass/Vol] 305 mg/dL High 74 - 99 mg/dL [facility] Interpretation and review of laboratory results Abnormal [facility] XR Chest Single viewon 10-13 Right upper lobe airspace consolidation, concerning for pneumonia. Clinical correlation and continued follow-up until clearing is recommended. MACRO: None. Signed by: Jaret Walker 10/13/2023 11:21 AM Dictation workstation: [id number] Interpreted By: Jaret Walker, STUDY: XR CHEST 1 VIEW 10/13/2023 8:31 am INDICATION: Signs/Symptoms:Acute dyspnea COMPARISON: 10/11/2023 ACCESSION NUMBER(S): [id number] ORDERING CLINICIAN: VERA RIVERA TECHNIQUE: A single [...] INDICATION: Signs/Symptoms:Acute dyspnea COMPARISON: 10/11/2023 ACCESSION NUMBER(S): [id number] ORDERING CLINICIAN: VERA RIVERA TECHNIQUE: A single [...] Jaret Walker 10/13/2023 11:21 AM Dictation workstation: [id number] [facility] Work Phone: Radiology Study observation (narrative) [facility] Work Phone: XR Chest Single viewOrdered By: Jaret Walker on 10-13-2023 [facility] Work Phone: Basic metabolic 2000 panelon 10-12-2023 Anion gap [Moles/Vol] 13 mmol/L 10 - 2 0 mmol/L [facility] Calcium [Mass/Vol] 8.2 mg/dL Low 8.6 - 10. 3 mg/dL [facility] Chloride [Moles/Vol] 103 mmol/L 98 - 10 7 mmol/L [facility] CO2 [Moles/Vol] 23 mmol/L 21 - 32 mmol/L [facility] Creatinine [Mass/Vol] 2.11 mg/dL High 0.50 - 1.30 mg/dL [facility] GFR/1.73 sq M.predicted MDRD (S/P/Bld) [Vol rate/Area] 31 mL/min/{1.73_m2} Low - PINF [facility] Comment on above: Calculations of albin mated GFR are performed using the 2020 CKD-EPI Study Refit equation without the race variable for the IDMS-Traceable creatinine methods. https://jasn.asnjournals.org/content///ASN.20 92309067 Glucose [Mass/Vol] 214 mg/dL High 74 - 99 mg/dL [facility] Interpretation and review of laboratory results Abnormal [facility] Potassium [Moles/Vol] 4.4 mmol/L 3.5 - 5.3 mmol/L [facility] Sodium [Moles/Vol] 135 mmol/L Low 136 - 145 mmol/L [facility] Urea nitrogen [Mass/Vol] 44 mg/dL High 6 - 23 mg/d L [facility] CBC W Auto Differential pane l (Bld)on 10-12-2023 Basophils (Bld) [#/Vol] 0.03 10*3/uL [facility] Basophils/100 WBC (Bld) 0.1 % 0.0 - 2.0 % [facility] Eosinophils (Bld) [#/Vol] 0.00 10*3/uL [facility] Eosinophils/100 WBC (Bld) 0.0 % 0.0 - 6.0 % [facility] Erythrocyte distribution width (RBC) [Ratio] 13.0 % 11.5 - 14.5 % [facility] Hematocrit (Bld) [Volume fraction] 34.5 % Low 41.0 - 52.0 % [facility] Hemoglobin (Bld) [Mass/Vol] 11.8 g/dL Low 13.5 - 17.5 g/dL [facility] Immature granulocytes (Bld) [#/Vol] 0.09 10*3/uL [facility] Immature granulocytes/100 WBC (Bld) 0.4 % 0.0 - 0.9 % [facility] Comment on above: Immature Granulocyte Count (IG) includes promyelocytes, myelocytes and metamyelocytes but does not include bands. Percent differential counts (%) should be interpreted in the context of the absolute cell counts (cells/UL). Interpretation and review of laboratory results Abnormal [facility] Lymphocytes (Bld) [#/Vol] 1.79 10*3/uL [facility] Lymphocytes/100 WBC (Bld) 8.6 % 13.0 - 44. 0 % [facility] MCH (RBC) [Entitic mass] 30.8 pg 26. 0 - 34.0 pg [facility] MCHC (RBC) [Mass/Vol] 34.2 g/dL 32.0 - 36.0 g/dL [facility] MCV (RBC) [Entitic vol] 90 fL 80 - 100 fL [facility] Monocytes (Bld) [#/Vol] 1.55 10*3/uL High [facility] Monocytes/100 WBC (Bld) 7.5 % 2.0 - 10.0 % [facility] Neutrophils (Bld) [#/Vol] 17.32 10*3/uL High [facility] Comment on above: Percent differential counts (%) should be interpreted in the context of the absolute cell counts (cells/uL). Neutrophils/100 WBC (Bld) 83.4 % 40.0 - 80. 0 % [facility] Nucleated RBC/100 WBC (Bld) [Ratio] 0.0 % [facility] Platelets (Bld) [#/Vol] 152 10*3/uL [facility] RBC (Bld) [#/Vol] 3.83 10*6/uL Low [facility] WBC (Bld) [#/Vol] 20.8 10*3/uL High [facility] Glucose Test strip manual (B ld) [Mass/Vol]on 10-12-2023 Glucose [Mass/Vol] 240 mg/dL High 74 - 99 mg/dL [facility] Interpretation and review of laboratory results Abnormal [facility] Glucose [Mass/Vol] 166 mg/dL High 74 - 99 mg/dL [facility] Interpretation and review of laboratory results Abnormal [facility] Glucose [Mass/Vol] 186 mg/dL High 74 - 99 mg/dL [facility] Interpretation and review of laboratory results Abnormal [facility] Glucose [Mass/Vol] 218 mg/dL High 74 - 99 mg/dL [facility] Interpretation and review of laboratory results Abnormal [facility] Glucose [Mass/Vol] 127 mg/dL High 74 - 99 mg/dL [facility] Interpretation and review of laboratory results Abnormal [facility] No Panel Informationon 10-12 Extra Tube Hold for add-ons. [facility] Comment on above: Auto resulted. [facility] CBC W Auto Differential pane l (Bld)on 10-11-2023 Basophils (Bld) [#/Vol] 0.07 10*3/uL [facility] Basophils/100 WBC (Bld) 0.7 % 0.0 - 2.0 % [facility] Eosinophils (Bld) [#/Vol] 0.09 10*3/uL [facility] Eosinophils/100 WBC (Bld) 0.9 % 0.0 - 6.0 % [facility] Erythrocyte distribution width (RBC) [Ratio] 13.0 % 11.5 - 14.5 % [facility] Hematocrit (Bld) [Volume fraction] 36.7 % Low 41.0 - 52.0 % [facility] Hemoglobin (Bld) [Mass/Vol] 12.0 g/dL Low 13.5 - 17.5 g/dL [facility] Immature granulocytes (Bld) [#/Vol] 0.03 10*3/uL [facility] Immature granulocytes/100 WBC (Bld) 0.3 % 0.0 - 0.9 % [facility] Comment on above: Immature Granulocyte Count (IG) includes promyelocytes, myelocytes and metamyelocytes but does not include bands. Percent differential counts (%) should be interpreted in the context of the absolute cell counts (cells/UL). Interpretation and review of laboratory results Abnormal [facility] Lymphocytes (Bld) [#/Vol] 1.34 10*3/uL [facility] Lymphocytes/100 WBC (Bld) 12.9 % 13.0 - 44. 0 % [facility] MCH (RBC) [Entitic mass] 30.4 pg 26. 0 - 34.0 pg [facility] MCHC (RBC) [Mass/Vol] 32.7 g/dL 32.0 - 36.0 g/dL [facility] MCV (RBC) [Entitic vol] 93 fL 80 - 100 fL [facility] Monocytes (Bld) [#/Vol] 1.25 10*3/uL High [facility] Monocytes/100 WBC (Bld) 12.0 % 2.0 - 10.0 % [facility] Neutrophils (Bld) [#/Vol] 7.64 10*3/uL High [facility] Comment on above: Percent differential counts (%) should be interpreted in the context of the absolute cell counts (cells/uL). Neutrophils/100 WBC (Bld) 73.2 % 40.0 - 80. 0 % [facility] Nucleated RBC/100 WBC (Bld) [Ratio] 0.0 % [facility] Platelets (Bld) [#/Vol] 158 10*3/uL [facility] RBC (Bld) [#/Vol] 3.95 10*6/uL Low [facility] WBC (Bld) [#/Vol] 10.4 10*3/uL [facility] Comprehensive metabolic 2000 panelon 10-11-2023 Albumin BCP dye [Mass/Vol] 3.8 g/dL 3.4 - 5.0 g/dL [facility] ALP [Catalytic activity/Vol] 83 U/L 33 - 136 U/L [facility] ALT With P-5'-P [Catalytic activity/Vol] 13 U/L 10 - 52 U/L [facility] Comment on above: Patients treated wit h Sulfasalazine may generate falsely decreased results for ALT. Anion gap [Moles/Vol] 15 mmol/L 10 - 2 0 mmol/L [facility] AST With P-5'-P [Catalytic activity/Vol] 18 U/L 9 - 39 U/L [facility] Bilirubin [Mass/Vol] 0.4 mg/dL 0.0 - 1 .2 mg/dL [facility] Calcium [Mass/Vol] 8.5 mg/dL Low 8.6 - 10. 3 mg/dL [facility] Chloride [Moles/Vol] 103 mmol/L 98 - 10 7 mmol/L [facility] CO2 [Moles/Vol] 22 mmol/L 21 - 32 mmol/L [facility] Creatinine [Mass/Vol] 1.83 mg/dL High 0.50 - 1.30 mg/dL [facility] GFR/1.73 sq M.predicted MDRD (S/P/Bld) [Vol rate/Area] 37 mL/min/{1.73_m2} Low - PINF [facility] Comment on above: Calculations of albin mated GFR are performed using the 2020 CKD-EPI Study Refit equation without the race variable for the IDMS-Traceable creatinine methods. https://jasn.asnjournals.org/content//ASN.20 59101923 Glucose [Mass/Vol] 344 mg/dL High 74 - 99 mg/dL [facility] Interpretation and review of laboratory results Abnormal [facility] Potassium [Moles/Vol] 4.4 mmol/L 3.5 - 5.3 mmol/L [facility] Protein [Mass/Vol] 6.3 g/dL Low 6.4 - 8.2 g/dL [facility] Sodium [Moles/Vol] 136 mmol/L 136 - 145 mmol/L [facility] Urea nitrogen [Mass/Vol] 30 mg/dL High 6 - 23 mg/d L [facility] Critical Careon 10-11-2023 Aury Rouse DO [...] specialty: no Care discussed with: admitting provider [facility] Work Phone: [facility] Work Phone: D-Dimer, VTE Exclusionon Fibrin D-dimer FEU (PPP) [Mass/Vol] 1869 High NINF [facility] ECG 12-LEADon 10-11-2023 ECG 12-LEAD Ventricular Rate 113 Atrial Rate 113 P-R Interval 148 QRS Duration 82 Q-T Interval 332 QTC Calculation(Bazett) 455 P [place] 67 R [place] 39 T [place] 81 QRS Count 18 Q Onset 220 P Onset 146 P Offset 189 T Offset 386 QTC Fredericia 410 Diagnosis Sinus tachycardia 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 NON-SPECIFIC T-WAVE CHANGES Abnormal EKG Confirmed by Tyrone Bajwa ([id number]) on 10/11/2023 6:18:47 PM Normal [facility] FLUAV and FLUBV RNA ALICE+prob e Nom (Unsp spec)on 10-11-2023 FLUAV RNA ALICE+probe Ql (Resp) Not detected Not Detected [facility] FLUBV RNA ALICE+probe Ql (Resp) Not detected Not Detected [facility] This assay is an in vitro diagnostic multiplex nucleic acid amplification test for the detection and discrimination of Influenza A & B from nasopharyngeal specimens, and has been validated for use at [facility]. Negative results do not preclude Influenza A/B infections, and should not be used as the sole basis for diagnosis, treatment, or other management decisions. If Influenza A/B and RSV PCR results are negative, testing for Parainfluenza virus, Adenovirus and Metapneumovirus is routinely performed for [facility] pediatric oncology and intensive care inpatients, and is available on other patients by placing an add-on request. [facility] Fibrin D-dimer FEU (PPP) [Ma ss/Vol]on 10-11-2023 Interpretation and review of laboratory results Abnormal [facility] The VTE Exclusion D-Dimer assay is reported in ng/mL Fibrinogen Equivalent Units (FEU). Per professional golf tournament player's instructions for use, a value of less [...] assessment model for DVT or PE exclusion.) [facility] Gas panel (BldA)on 3 Apparatus CANNULA [facility] Base excess Calc (Bld) [Moles/Vol] -2.2000 mmol/L Low -2.0 - 3.0 mmol/L [facility] CO2 (Bld) [Partial pressure] 41 mm[Hg] [facility] HCO3 (Bld) [Moles/Vol] 23.2 mmol/L 22.0 - 26.0 mmol/L [facility] Inhaled oxygen concentration 50 % [facility] Interpretation and review of laboratory results Abnormal [facility] Oxygen (Bld) [Partial pressure] 66 mm[Hg] Low [facility] Oxyhemoglobin (BldA) [Mass fraction] 90.6 % Low 94.0 - 98.0 % [facility] pH (Bld) 7.36 [pH] Low 7.38 - 7.42 pH [facility] Glucose Test strip manual (B ld) [Mass/Vol]on 10-11-2023 Glucose [Mass/Vol] 132 mg/dL High 74 - 99 mg/dL [facility] Interpretation and review of laboratory results Abnormal [facility] Glucose [Mass/Vol] 203 mg/dL High 74 - 99 mg/dL [facility] Interpretation and review of laboratory results Abnormal [facility] Glucose [Mass/Vol] 271 mg/dL High 74 - 99 mg/dL [facility] Interpretation and review of laboratory results Abnormal [facility] Glucose [Mass/Vol] 357 mg/dL High 74 - 99 mg/dL [facility] Interpretation and review of laboratory results Abnormal [facility] Glucose [Mass/Vol] 407 mg/dL High 74 - 99 mg/dL [facility] Interpretation and review of laboratory results Abnormal [facility] Glucose [Mass/Vol] 385 mg/dL High 74 - 99 mg/dL [facility] Interpretation and review of laboratory results Abnormal [facility] Glucose [Mass/Vol] 455 mg/dL High 74 - 99 mg/dL [facility] Comment on above: RN/ NOTIFIED Interpretation and review of laboratory results Abnormal [facility] Glucose [Mass/Vol] 481 mg/dL High 74 - 99 mg/dL [facility] Comment on above: RN/ NOTIFIED Interpretation and review of laboratory results Abnormal [facility] Glucose [Mass/Vol] mg/dL High 74 - 99 mg/dL [facility] Interpretation and review of laboratory results Abnormal [facility] Glucose [Mass/Vol] mg/dL High 74 - 99 mg/dL [facility] Interpretation and review of laboratory results Abnormal [facility] Glucose [Mass/Vol] 571 mg/dL High 74 - 99 mg/dL [facility] Interpretation and review of laboratory results Abnormal [facility] Glucose [Mass/Vol] 562 mg/dL High 74 - 99 mg/dL [facility] Comment on above: RN/ NOTIFIED Interpretation and review of laboratory results Abnormal [facility] Glucose [Mass/Vol] 386 mg/dL High 74 - 99 mg/dL [facility] Interpretation and review of laboratory results Abnormal [facility] Glucose [Mass/Vol]on 023 Interpretation and review of laboratory results Abnormal [facility] Glucose, randomon 10-11-2023 Glucose [Mass/Vol] 654 mg/dL Critically high 74 - 99 mg/d L [facility] Comment on above: Confirmed by repeat analysis Lactateon 10-11-2023 Lactate [Moles/Vol] 1.6 mmol/L 0.4 - 2. 0 mmol/L [facility] Lactate [Moles/Vol]on 2022 Interpretation and review of laboratory results Normal [facility] Venipuncture immediately after or during the administration of Metamizole may lead to falsely low results. Testing should be performed immediately prior to Metamizole dosing. [facility] Natriuretic peptide B [Mass/ Vol]on 10-11-2023 Interpretation and review of laboratory results Abnormal [facility] Natriuretic peptide B (Bld) [Mass/Vol] 251 pg/mL High 0 - 99 pg/mL [facility] <100 pg/mL - Heart failure unlikely 100-299 pg/mL - Intermediate probability of acute heart failure exacerbation. Correlate with clinical context and patient history. >=300 pg/mL - Heart Failure likely. Correlate with clinical context and patient history. BNP testing is performed using different testing methodology at [facility] than at other legacy [facility]. Direct result comparisons should only be made within the same method. [facility] No Panel Informationon 10-11 Atrial Rate 113 BPM [facility] Work Phone: [phone] P [place] 67 degrees [facility] Work Phone: [phone] P Offset 189 ms [facility] Work Phone: [phone] P Onset 146 ms [facility] Work Phone: [phone] NH Interval 148 ms [facility] Work Phone: [phone] Q Onset 220 ms [facility] Work Phone: [phone] QRS Count 18 beats [facility] Work Phone: [phone] QRS Duration 82 ms [facility] Work Phone: [phone] QT Interval 332 ms [facility] Work Phone: [phone] QTC Calculation(Bazett) 455 ms [facility] Work Phone: QTC Fredericia 410 ms [facility] Work Phone: R [place] 39 degrees [facility] Work Phone: T [place] 81 degrees [facility] Work Phone: T Offset 386 ms [facility] Work Phone: Ventricular Rate [address] [facility] Work Phone: Sinus tachycardia 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 [facility] Comment on above: Auto resulted. [facility] Interpretation and review of laboratory results Normal [facility] ProcalcitoninOrdered By: Teresa Fine on 10-11-2023 Procalcitonin [Mass/Vol] 0.18 ng/mL High ANGEL F - 0.07 ng/mL [facility] Procalcitonin [Mass/Vol]Orde red By: Ismael Fine on 10-11-2023 Interpretation and review of laboratory results Abnormal [facility] Procalcitonin (PCT) results measured serially can [...] on immunomodulatory medications has not been evaluated. [facility] RSV PCRon 10-11-2023 RSV RNA ALICE+probe Ql (Resp) Not detected Not Detected [facility] RSV RNA ALICE+probe Ql (Resp)o n 10-11-2023 This assay is an FDA-cleared, in vitro diagnostic nucleic acid amplification test for the detection of RSV from nasopharyngeal specimens, and has been validated for use at [facility]. Negative results do not preclude RSV infections, and should not be used as the sole basis for diagnosis, treatment, or other management decisions. If Influenza A/B and RSV PCR results are negative, testing for Parainfluenza virus, Adenovirus and Metapneumovirus is routinely performed for pediatric oncology and intensive care inpatients at [facility], and is available on other patients by placing an add-on request. [facility] SARS-CoV-2 (COVID-19) RNA NA A+probe Ql (Resp)Ordered By: Rae Marcelino on 10-11-2023 Interpretation and review of laboratory results Abnormal [facility] This assay has received FDA Emergency [...] and has been validated for use at [facility]. Negative results do not preclude COVID-19 infections and should not be used as the sole basis for diagnosis, treatment, or other management decisions. [facility] SST TOPon 10-11-2023 Extra Tube Hold for add-ons. [facility] Comment on above: Auto resulted. [facility] Sars-CoV-2 PCR, SymptomaticO rdered By: Rae Marcelino on 10-11-2023 SARS-CoV-2 (COVID-19) RNA ALICE+probe Ql (Resp) Detected Abnormal Not Detected [facility] Tropinin I.cardiac panel Hig h sensitivity methodon 10-11-2023 Interpretation and review of laboratory results Abnormal [facility] Less than 99th percentile of normal [...] performed using a different testing methodology at [facility] than at other [facility]. Direct result comparisons should only be made within the same method. [facility] Interpretation and review of laboratory results Abnormal [facility] Less than 99th percentile of normal [...] performed using a different testing methodology at [facility] than at other [facility]. Direct result comparisons should only be made within the same method. [facility] Troponin I, High Sensitivity , Initialon 10-11-2023 Tropinin I.cardiac panel High sensitivity method 102 ng/L Critically high 0 - 20 ng/L [facility] Troponin, High Sensitivity, 1 Houron 10-11-2023 Tropinin I.cardiac panel High sensitivity method 354 ng/L Critically high 0 - 20 ng/L [facility] Comment on above: Previous result veri fied on 10/11/2023 0209 on specimen/case [id number] called with component [facility] for procedure Troponin I, High Sensitivity, Initial with value 102 ng/L. US Heart TransthoracicOrdere d By: Jose Enrique Molina on 10-11-2023 LA vol index A/L 25.[address] [facility] Work Phone: LV A4C EF 45.6 [facility] Work Phone: LV biplane EF 44 [facility] Work Phone: LVIDd 3.70 [facility] Work Phone: LVOT diam 1.80 [facility] Work Phone: [facility] Work Phone: [place] [address] [phone], TRANSTHORACIC ECHOCARDIOGRAM REPORT Patient Name: ENOC Wills Physician: [id number] Jose Enrique Molina MD Study Date: 10/11/2023 Ordering Provider: [id number] RIVERA MRN/PID: [id number] Fellow: Nurse: Jana See RN Date of /Age: 2 1945 / 77 years Maintenance Groundman: Cecilio Gabriel RDCS Gender: M Additional Staff: Height: 170.18 cm Admit Date: Weight: 71.67 kg Admission Status: Inpatient - Routine BSA: 1.83 m2 Department Location: [address]-ICU Blood Pressure: 141 /71 mmHg Study Type: TRANSTHORACIC ECHO (TTE) COMPLETE Diagnosis/ICD: Acute on chronic systolic (congestive) heart failure (CHF)-I50.23 CPT Codes: Echo Complete w Full Doppler-05458 Study Detail: The following Echo studies were [...] LA Area A2C: 16.2 cm2 LA Major [place] A4C: 5.3 cm LA Major [place] A2C: 5.0 cm LA Volume Index: 23.9 ml/m2 LA Vol A4C: 43.7 ml LA Vol A2C: 43.3 ml LV SYSTOLIC FUNCTION BY 2D PLANIMETRY (MOD): Normal Ranges: EF-A4C View: 45.6 % (>=55%) EF-A2C View: 40.9 % EF-Biplane: 44.2 % AORTIC VALVE: Normal Ranges: LVOT Diameter: 1.80 cm (1.8-2.4cm) RIGHT VENTRICLE: RV Basal 3.49 cm RV Mid 2.45 cm RV Major 7.8 cm [id number] Jose Enrique Molina MD Electronically signed on 10/11/2023 at 9:43:19 AM Final Jose Enrique Gardiner MD - 10/11/2023 [place] [address] [phone], TRANSTHORACIC ECHOCARDIOGRAM REPORT Patient Name: ENOC Wills Physician: [id number] Jose Enrique Molina MD Study Date: 10/11/2023 Ordering Provider: [id number] VERA RIVERA MRN/PID: [id number] Fellow: Nurse: Jana See RN Date of /Age: 2 1945 / 77 years Maintenance Groundman: Cecilio Gabriel RDCS Gender: M Additional Staff: Height: 170.18 cm Admit Date: Weight: 71.67 kg Admission Status: Inpatient - Routine BSA: 1.83 m2 Department Location: [facility] Blood Pressure: 141 /71 mmHg Study Type: TRANSTHORACIC ECHO (TTE) COMPLETE Diagnosis/ICD: Acute on chronic systolic (congestive) heart failure (CHF)-I50.23 CPT Codes: Echo Complete w Full Doppler-[id number] Study Detail: The following Echo studies were [...] LA Area A2C: 16.2 cm2 LA Major [place] A4C: 5.3 cm LA Major [place] A2C: 5.0 cm LA Volume Index: 23.9 ml/m2 LA Vol A4C: 43.7 ml LA Vol A2C: 43.3 ml LV SYSTOLIC FUNCTION BY 2D PLANIMETRY (MOD): Normal Ranges: EF-A4C View: 45.6 % (>=55%) EF-A2C View: 40.9 % EF-Biplane: 44.2 % AORTIC VALVE: Normal Ranges: LVOT Diameter: 1.80 cm (1.8-2.4cm) RIGHT VENTRICLE: RV Basal 3.49 cm RV Mid 2.45 cm RV Major 7.8 cm [id number] Jose Enrique Molina MD Electronically signed on 10/11/2023 at 9:43:19 AM Final [facility] Work Phone: Urinalysis complete W Reflex Culture panel (U)on 10-11-2023 Hyaline casts Auto (Urine sed) [#/Area] OCCASIONAL Abnormal NONE /LPF [facility] Interpretation and review of laboratory results Abnormal [facility] RBC Auto (Urine sed) [#/Area] NONE NONE, 1-2, 3-5 /HPF [facility] WBC Auto (Urine sed) [#/Area] NONE 1-5, NONE /HPF [facility] Appearance (U) Clear Clear [facility] Work Phone: Bilirubin (U) [Mass/Vol] Negative NEGATIVE [facility] Work Phone: Color (U) Yellow Straw, Yellow [facility] Work Phone: Glucose Auto test strip (U) [Mass/Vol] >=500 (3+) Abnormal NEGATIVE mg/dL [facility] Work Phone: Interpretation and review of laboratory results Abnormal [facility] Work Phone: Ketones (U) [Mass/Vol] 5 (TRACE) Abnormal NEGAT FRANK mg/dL [facility] Work Phone: Leukocyte esterase Auto test strip Ql (U) Negative NEGATIVE [facility] Work Phone: [phone] Nitrite Auto test strip Ql (U) Negative NEGATIVE [facility] Work Phone: pH (U) 5.0 [pH] 5.0, 5.5, 6.0, 6.5, 7.0, 7.5, 8.0 [facility] Work Phone: Protein (U) [Mass/Vol] 100 (2+) Abnormal NEGAT FRANK mg/dL [facility] Work Phone: RBC (U) [#/Vol] Negative NEGATIVE [facility] Work Phone: Specific gravity (U) [Rel density] 1.014 1.005 - 1.035 [facility] Work Phone: Urobilinogen (U) [Mass/Vol] mg/dL NINF - 2.0 mg/dL [facility] Work Phone: [facility] Work Phone: XR Chest Single viewon 10-11 1. Diffuse interstitial and scattered hazy opacities. These are nonspecific and may represent atypical infectious or inflammatory process or possibly edema in the appropriate clinical setting. Component may also be related to chronic parenchymal changes. Recommend follow-up to resolution. Signed by: Kahlil Fagan 10/11/2023 1:33 AM Dictation workstation: [id number] [id number] Interpreted By: Kahlil Fagan, STUDY: XR CHEST 1 VIEW; 10/11/2023 1:30 am INDICATION: Signs/Symptoms:Cough . COMPARISON: Chest radiograph 11/04/2012 ACCESSION NUMBER(S): [id number] ORDERING CLINICIAN: AURY ROUSE FINDINGS: SUPPORT DEVICES: [...] . COMPARISON: Chest radiograph 11/04/2012 ACCESSION NUMBER(S): [id number] ORDERING CLINICIAN: AURY ROUSE FINDINGS: SUPPORT DEVICES: [...] Kahlil Fagan 10/11/2023 1:33 AM Dictation workstation: [id number] [facility] Work Phone: Radiology Study observation (narrative) [facility] Work Phone: XR Chest Single viewOrdered By: Kahlil Fagan on 10-11-2023 [facility] Work Phone: US RENAL BILATon 07-30-2023 US RENAL BILAT Patient Name: ENOC ARMANDO STUDY: US RENAL BILAT 07/30/2023 1:11 pm INDICATION: 77 y/o M with CKD N18.9: CKD (chronic kidney disease). COMPARISON: None. ACCESSION NUMBER(S): [id number] ORDERING CLINICIAN: AYANNA ALBERT TECHNIQUE: Grayscale imaging [...] hydronephrosis. Electronically signed by: TENNILLE MAHARAJ MD [facility] Therapy Communicationon 07-03 Therapy Communication Message ENOC ARMANDO was (D/C)- last seen: 01/25/23. Pt self-discharged from skilled Physical Therapy at this time. Pt was not able to be fully re-assessed due to self-discharging and not attending final re-evaluation appointment. Refer back in future if necessary. Signatures Electronically signed by : Carlene Whitehead PT; Jul 29 2023 5:06PM EST (Author) Normal [employer] Initial Visit (Nephrology)on 07-27-2023 Initial Visit (Nephrology) Diagnoses/Problems Arthritis (716.90) (M19.90) CKD (chronic kidney disease) (585.9) (N18.9) Diabetic neuropathy (250.60,357.2) (E11.40) HTN (hypertension) (401.9) (I10) T1DM (type 1 diabetes mellitus) (250.01) (E10.9) Orders Albumin, Urine Spot; Status:Active; Requested for:[id number]; Basic Metabolic Panel; Status:Active; Requested for:25Yps9773; Magnesium, Serum; Status:Active; Requested for:[id number]; Parathormone Intact, Serum; Status:Active; Requested for:[id number]; Phosphorus, Serum; Status:Active; Requested for:01Msi4970; Ultrasound Kidney Bilateral; Status:Hold For - Scheduling; Requested for:84Onw8523; Radiologist to Determine Optimal Study : Y What are the patient's signs and symptoms? : CKD Uric Acid, Serum; Status:Active; Requested for:20Jqp9514; Urinalysis; Status:Active; Requested for:56Jgo5730; Vitamin D 25-Hydroxy; Status:Need Information - ABN Disposition; Requested for:93Vrr7823; Patient Discussion/Summary Issues: 1. 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 Normal [employer] Tobacco Screening.on 023 Fall risk assessment b) One or more fall s in the last year [facility] Work Phone: Tobacco use status [facility] a) Yes [facility] Work Phone: COMPREHENSIVE PANELon 2022 Albumin [Mass/Vol] 3.7 g/dL Normal 3.4 - 5.0 [facility] Comment on above: Performed By: #### C MP #### [address] [address] ALP [Catalytic activity/Vol] 80 U/L Normal 33 - 136 [facility] Comment on above: Performed By: #### C MP #### [address] [address] ALT [Catalytic activity/Vol] 12 U/L Normal 10 - 52 [facility] Comment on above: Result Comment: Twila ents treated with Sulfasalazine may generate falsely decreased results for ALT. Performed By: #### C MP #### [address] [address] Anion gap [Moles/Vol] 10 mmol/L Normal 10 - 20 [facility] Comment on above: Performed By: #### C MP #### [address] [address] AST [Catalytic activity/Vol] 16 U/L Normal 9 - 39 [facility] Comment on above: Performed By: #### C MP #### [address] [address] Bilirubin [Mass/Vol] 0.5 mg/dL Normal 0.0 - 1.2 [facility] Comment on above: Performed By: #### C MP #### [address] [address] Calcium [Mass/Vol] 8.9 mg/dL Normal 8.6 - 10.3 [facility] Comment on above: Performed By: #### C MP #### [address] [address] Chloride [Moles/Vol] 107 mmol/L Normal 98 - 107 [facility] Comment on above: Performed By: #### C MP #### [address] [address] Creatinine [Mass/Vol] 1.85 mg/dL High 0.50 - 1.30 [facility] Comment on above: Performed By: #### C MP #### [address] [address] GFR/1.73 sq M.predicted among non-blacks MDRD (S/P/Bld) [Vol rate/Area] 36 mL/min/{1.73_m2} Abnormal >90 [facility] Comment on above: Result Comment: CALC ULATIONS OF ESTIMATED GFR ARE PERFORMED USING THE 2020 CKD-EPI STUDY REFIT EQUATION WITHOUT THE RACE VARIABLE FOR THE IDMS-TRACEABLE CREATININE METHODS. https://jasn.asnjournals.org/content/early//ASN.20 40026706 Performed By: #### C MP #### [address] [address] Glucose [Mass/Vol] 347 mg/dL High 74 - 99 [facility] Comment on above: Performed By: #### C MP #### [address] [address] HCO3 (Bld) [Moles/Vol] 27 mmol/L Normal 21 - 32 [facility] Comment on above: Performed By: #### C MP #### [address] [address] Potassium [Moles/Vol] 4.4 mmol/L Normal 3.5 - 5.3 [facility] Comment on above: Performed By: #### C MP #### [address] [address] Protein [Mass/Vol] 6.0 g/dL Low 6.4 - 8.2 [facility] Comment on above: Performed By: #### C MP #### [address] [address] Sodium [Moles/Vol] 140 mmol/L Normal 136 - 145 [facility] Comment on above: Performed By: #### C MP #### [address] [address] Urea nitrogen [Mass/Vol] 31 mg/dL High 6 - 23 [facility] Comment on above: Performed By: #### C MP #### [address] [address] HEMOGLOBIN A1Con 06-11-2023 Glucose [Mass/Vol] 171 mg/dL Normal [facility] Comment on above: Performed By: #### H BA1E #### [address] [address] HbA1c (Bld) [Mass fraction] 7.6 % Abnormal [facility] Comment on above: Result Comment: Diag nosis of Diabetes-Adults Non-Diabetic: < or = 5.6% Increased risk for developing diabetes: 5.7-6.4% Diagnostic of diabetes: > or = 6.5% . Monitoring of Diabetes Age (y) Therapeutic Goal (%) Adults: >18 <7.0 Pediatrics: 13-18 <7.5 7-12 <8.0 0- 6 7.5-8.5 [employer]. Diabetes Care 33(S1), Nov 2009. Performed By: #### H BA1E #### [address] [address] ALBUMIN, URINE SPOTon 2022 ALBUMIN,URINE 195.3 mg/L Normal Not Established [facility] Comment on above: Performed By: #### A LBSP ####[id number] [place] [address] ALBUMIN/CREAT RATIO 212.5 ug/mg donor support technician High 0.0 - 30.0 [facility] Comment on above: Performed By: #### A LBSP ####[id number] [place] [address] CREATININE,URINE 91.9 mg/dL Normal 20.0 - 370.0 [facility] Comment on above: Performed By: #### A LBSP ####[id number] [place] [address] CBC AND DIFFERENTIALon 02-12 % AUTOMATED IMMATURE GRAN 0.3 % Normal 0.0 - 0.9 [facility] Comment on above: Result Comment: Arielle ture Granulocyte Count (IG) includes promyelocytes, myelocytes and metamyelocytes but does not include bands. Percent differential counts (%) should be interpreted in the context of the absolute cell counts (cells/L). Performed By: #### C BCDF #### [address] [address] Basophils (Bld) [#/Vol] 0.09 10*3/uL Normal 0.00 - 0.1 0 [facility] Comment on above: Performed By: #### C BCDF #### [address] [address] Basophils/100 WBC (Bld) 1.2 % Normal 0.0 - 2.[address] [facility] Comment on above: Performed By: #### C BCDF #### [address] [address] Eosinophils (Bld) [#/Vol] 0.40 10*3/uL Normal 0.00 - 0 .40 [facility] Comment on above: Performed By: #### C BCDF #### [address] [address] Eosinophils/100 WBC (Bld) 5.2 % Normal 0.0 - 6.0 [facility] Comment on above: Performed By: #### C BCDF #### [address] [address] Erythrocyte distribution width (RBC) [Ratio] 13.1 % Normal 11.5 - 14.5 [facility] Comment on above: Performed By: #### C BCDF #### [address] [address] Hematocrit (Bld) [Volume fraction] 39.5 % Low 41.0 - 52.0 [facility] Comment on above: Performed By: #### C BCDF #### [address] [address] Hemoglobin (Bld) [Mass/Vol] 12.6 g/dL Low 13.5 - 17.5 [facility] Comment on above: Performed By: #### C BCDF #### [address] [address] Lymphocytes (Bld) [#/Vol] 1.68 10*3/uL Normal 0.80 - 3 .00 [facility] Comment on above: Performed By: #### C BCDF #### [address] [address] Lymphocytes/100 WBC (Bld) 21.9 % Normal 13.0 - 44. 0 [facility] Comment on above: Performed By: #### C BCDF #### [address] [address] MCHC (RBC) [Mass/Vol] 31.9 g/dL Low 32.0 - 36.0 [facility] Comment on above: Performed By: #### C BCDF #### [address] [address] MCV (RBC) [Entitic vol] 95 fL Normal 80 - 100 [facility] Comment on above: Performed By: #### C BCDF #### [address] [address] Monocytes (Bld) [#/Vol] 0.57 10*3/uL Normal 0.05 - 0.8 0 [facility] Comment on above: Performed By: #### C BCDF #### [address] [address] Monocytes/100 WBC (Bld) 7.4 % Normal 2.0 - 10.0 [facility] Comment on above: Performed By: #### C BCDF #### [address] [address] Neutrophils (Bld) [#/Vol] 4.91 10*3/uL Normal 1.60 - 5 .50 [facility] Comment on above: Result Comment: Perc ent differential counts (%) should be interpreted in the context of the absolute cell counts (cells/L). Performed By: #### C BCDF #### [address] [address] Neutrophils/100 WBC (Bld) 64.0 % Normal 40.0 - 80. 0 [facility] Comment on above: Performed By: #### C BCDF #### [address] [address] Platelets (Bld) [#/Vol] 229 10*3/uL Normal 150 - 450 [facility] Comment on above: Performed By: #### C BCDF #### [address] [address] RBC 4.18 x10E12/L Low 4.50 - 5.90 [facility] Comment on above: Performed By: #### C BCDF #### [address] [address] WBC (Bld) [#/Vol] 7.7 10*3/uL Normal 4.4 - 11.3 [facility] Comment on above: Performed By: #### C BCDF #### [address] [address] COMPREHENSIVE PANELon 2022 Albumin [Mass/Vol] 4.0 g/dL Normal 3.4 - 5.0 [facility] Comment on above: Performed By: #### C MP #### [address] [address] ALP [Catalytic activity/Vol] 79 U/L Normal 33 - 136 [facility] Comment on above: Performed By: #### C MP #### [address] [address] ALT [Catalytic activity/Vol] 12 U/L Normal 10 - 52 [facility] Comment on above: Result Comment: Twila ents treated with Sulfasalazine may generate falsely decreased results for ALT. Performed By: #### C MP #### [address] [address] Anion gap [Moles/Vol] 10 mmol/L Normal 10 - 20 [facility] Comment on above: Performed By: #### C MP #### [address] [address] AST [Catalytic activity/Vol] 13 U/L Normal 9 - 39 [facility] Comment on above: Performed By: #### C MP #### [address] [address] Bilirubin [Mass/Vol] 0.6 mg/dL Normal 0.0 - 1.2 [facility] Comment on above: Performed By: #### C MP #### [address] [address] Calcium [Mass/Vol] 9.4 mg/dL Normal 8.6 - 10.3 [facility] Comment on above: Performed By: #### C MP #### [address] [address] Chloride [Moles/Vol] 105 mmol/L Normal 98 - 107 [facility] Comment on above: Performed By: #### C MP #### [address] [address] Creatinine [Mass/Vol] 1.69 mg/dL High 0.50 - 1.30 [facility] Comment on above: Performed By: #### C MP #### [address] [address] GFR/1.73 sq M.predicted among non-blacks MDRD (S/P/Bld) [Vol rate/Area] 41 mL/min/{1.73_m2} Abnormal >90 [facility] Comment on above: Result Comment: CALC ULATIONS OF ESTIMATED GFR ARE PERFORMED USING THE 2020 CKD-EPI STUDY REFIT EQUATION WITHOUT THE RACE VARIABLE FOR THE IDMS-TRACEABLE CREATININE METHODS. https://jasn.asnjournals.org/content//ASN.20 45170339 Performed By: #### C MP #### [address] [address] Glucose [Mass/Vol] 253 mg/dL High 74 - 99 [facility] Comment on above: Performed By: #### C MP #### [address] [address] HCO3 (Bld) [Moles/Vol] 28 mmol/L Normal 21 - 32 [facility] Comment on above: Performed By: #### C MP #### [address] [address] Potassium [Moles/Vol] 4.8 mmol/L Normal 3.5 - 5.3 [facility] Comment on above: Performed By: #### C MP #### [address] [address] Protein [Mass/Vol] 6.4 g/dL Normal 6.4 - 8.2 [facility] Comment on above: Performed By: #### C MP #### [address] [address] Sodium [Moles/Vol] 138 mmol/L Normal 136 - 145 [facility] Comment on above: Performed By: #### C MP #### [address] [address] Urea nitrogen [Mass/Vol] 25 mg/dL High 6 - 23 [facility] Comment on above: Performed By: #### C MP #### [address] [address] HEMOGLOBIN A1Con 02-12-2023 Glucose [Mass/Vol] 174 mg/dL Normal [facility] Comment on above: Performed By: #### H BA1E #### [address] [address] HbA1c (Bld) [Mass fraction] 7.7 % Abnormal [facility] Comment on above: Result Comment: Diag nosis of Diabetes-Adults Non-Diabetic: < or = 5.6% Increased risk for developing diabetes: 5.7-6.4% Diagnostic of diabetes: > or = 6.5% . Monitoring of Diabetes Age (y) Therapeutic Goal (%) Adults: >18 <7.0 Pediatrics: 13-18 <7.5 7-12 <8.0 0- 6 7.5-8.5 [employer]. Diabetes Care 33(S1), Nov 2009. Performed By: #### H BA1E #### [address] [address] LIPID PANEL (CORONARY RISK 2 )on 02-12-2023 Cholesterol [Mass/Vol] 154 mg/dL Normal 0 - 199 [facility] Comment on above: Result Comment: . AGE [...] dosing. Performed By: #### L IPID #### [address] [address] Cholesterol in HDL [Mass/Vol] 43.0 mg/dL Normal [facility] Comment on above: Result Comment: . AGE VERY LOW LOW NORMAL HIGH 0-19 Y < 35 < 40 40-45 ---- 20-24 Y ---- < 40 >45 ---- >24 Y ---- < 40 40-60 >60 . Performed By: #### L IPID #### [address] [address] Cholesterol in LDL [Mass/Vol] 96 mg/dL Normal 0 - 99 [facility] Comment on above: Result Comment: . NEAR BORD AGE DESIRABLE OPTIMAL HIGH HIGH VERY HIGH 0-19 Y 0 - 109 --- 110-129 >/= 130 ---- 20-24 Y 0 - 119 --- 120-159 >/= 160 ---- >24 Y 0 - 99 100-129 130-159 160-189 >/=190 . Performed By: #### L IPID #### [address] [address] Cholesterol in VLDL [Mass/Vol] 15 mg/dL Normal 0 - 40 [facility] Comment on above: Performed By: #### L IPID #### [address] [address] Cholesterol.total/Cholest santos in HDL [Mass ratio] 3.6 {ratio} Normal [facility] Comment on above: Result Comment: REF VALUES DESIRABLE < 3.4 HIGH RISK > 5.0 Performed By: #### L IPID #### [address] [address] Triglyceride [Mass/Vol] 77 mg/dL Normal 0 - 149 [facility] Comment on above: Result Comment: . AGE [...] dosing. Performed By: #### L IPID #### [address] [address] PROSTATE SPEC.AG,SCREENon PROSTATE SPEC.AG,SCREEN 3.14 ng/mL Normal 0.00 - 4.00 [facility] Comment on above: Result Comment: The FDA requires that the method used for PSA assay be reported to the physician. Values obtained with different assay methods must not be used interchangeably. This test was performed at [facility] using the [employer] PSA assay is a two-site immunoenzymatic sandwich assay. The assay is approved for measurement of prostate-specific antigen (PSA)in serum and may be used in conjunction with a digital rectal examination in men 50 years and older as an aid in detection of prostate cancer. 6-Yigxg-huobsyrdf inhibitors (e.g. Proscar, Finasteride, Avodart, Dutasteride and Alma Rosa) for the treatment of BPH have been shown to lower PSA levels by an average of 50% after 6 months of treatment. Performed By: #### P SAS #### [address] [address] THYROXINE,FREEon 02-12-2023 THYROXINE,FREE 1.16 ng/dL High 0.61 - 1.12 [facility] Comment on above: Result Comment: Thyr oxine Free testing is performed using different testing methodology at [facility] than at other [facility]. Direct result comparisons should only [...] draw. Performed By: #### T 4FRE #### [address] [address] TSHon 02-12-2023 TSH Qn 0.73 m[IU]/L Normal 0.44 - 3.98 [facility] Comment on above: Result Comment: TSH testing is performed using different testing methodology at [facility] than at other [facility]. Direct result comparisons should only be made within the same method. Performed By: #### T SH2 #### [address] [address] PT Progress Noteon 3 PT Progress Note [...] . the patient will continue therapy at [facility]. Potential to achieve rehab goals is fair: [...] code time is 30 minutes. Therapeutic exercise (74025):. Not Today 01/25/23 NuStep 5? Slant board [...] 10 x 10? hold (N). Manual Therapy (32570): timed minutes 15, units 1 . STW to glutes and QL and IT band, hip flexor. Modalities: untimed minutes 15, units 1 . IFC to R Lumbar/Glute region x 10' in S/L w/ MHP. 'Scores and Scales' Signatures Electronically signed by : Zoila Lopez CHANGE OF ADDRESS CLERK; Jan 25 2023 5:14PM EST (Author) Electronically signed by : Carlene Whitehead, PT; Feb 23 2023 10:49PM EST Normal [employer] PT Progress Noteon 3 PT Progress Note [...] . the patient will continue therapy at [facility]. Potential to achieve rehab goals is fair: [...] code time is 35 minutes. Therapeutic exercise (53071): timed minutes 20, units 1 . Pt [...] chops wit (more content not included)... Normal [facility] Therapy Re-eval Noteon 01-18 Therapy Re-eval Note [...] . the patient will continue therapy at [facility]. Potential to achieve rehab goals is fair: [...] Declined. Insurance Insurance reviewed Visit number: 9 [facility] Evaluating therapist Shoaib Bhandari PT. [...] code time is 35 minutes. Therapeutic exercise (14948): timed minutes 20, units 1 . Pt [...] . the patient will continue therapy at [facility]. Potential to achieve rehab goals is fair: [...] code time is 38 minutes. Therapeutic exercise (09934): timed minutes 26, units 2 . NuStep [...] 30? D/C to HEP . Manual Therapy (28619): timed minutes 12, units 1 . STW to glutes and QL and IT band. Provided today:. 12/25/22 [id number] Provided and reviewed HEP, patient demosntrated good understanding. 'Scores and Scales' Signatures Electronically signed by : Chaya Morrow (more content not included)... Normal [employer] PT Progress Noteon 3 PT Progress Note [...] . the patient will continue therapy at [facility]. Potential to achieve rehab goals is fair: [...] code time is 38 minutes. Therapeutic exercise (27731): timed minutes 26, units 2 . NuStep [...] 30? D/C to HEP . Manual Therapy (47344): timed minutes 12, units 1 . STW to glutes and QL and IT band. Provided today:. 12/25/22 [id number] Provided and reviewed HEP, patient demosntrated good understanding. 'Scores and Scales' Signatures Electronically signed by : Chaya Chan, CHANGE OF ADDRESS CLERK; Jan 13 2023 11:01AM EST (Author) Electronically signed by : Carlene Whitehead, PT; Jan 17 2023 3:07PM EST Normal [employer] PT Progress Noteon 3 PT Progress Note [...] . the patient will continue therapy at [facility]. Potential to achieve rehab goals is fair: [...] Declined. Insurance Insurance reviewed Visit number: 6 [facility] Evaluating therapist Shoaib Bhandari PT. [...] code time is 43 minutes. Therapeutic exercise (02292): timed minutes 32, units 2 . NuStep [...] x 10 Green band . Manual Therapy (17946): timed minutes 11, units 1 . STW to glutes and QL 10'. Provided today:. 12/25/22 [id number] Provided and reviewed HEP, patient demosntrated good understanding. 'Scores and Scales' Signatures Electronically signed by : Chaya Chan, CHANGE OF ADDRESS CLERK; Jan 08 2023 10:51AM EST (Author) Electronically [...] . the patient will continue therapy at [facility]. Potential to achieve rehab goals is fair: [...] Declined. Insurance Insurance reviewed Visit number: 5 [facility] Evaluating therapist Shoaib Bhandari PT. [...] code time is 44 minutes. Therapeutic exercise (69352): timed minutes 34, units 2 . NuStep [...] 10 Green band (N) . Manual Therapy (44524): timed minutes 10, units 1 . STW to glutes and QL 10'. Provided today:. 12/25/22 [id number] Provided and reviewed HEP, patient demosntrated good understanding. 'Scores and Scales' Signatures Electronically signed by : Zoila Lopez CHANGE OF ADDRESS CLERK; Jan 06 2023 12:41PM EST (Author) Electronically [...] . the patient will continue therapy at [facility]. Potential to achieve rehab goals is fair: [...] code time is 44 minutes. Therapeutic exercise (14334): timed minutes 34, units 2 . NuStep [...] x 10 orange band . Manual Therapy (65748): timed minutes 10, units 1 . STW to glutes and QL 10'. Provided today:. 12/25/22 [id number] Provided and reviewed HEP, patient demosntrated good understanding. 'Scores and Scales' Signatures Electronically signed by : Zoila Lopez CHANGE OF ADDRESS CLERK; Jan 01 2023 12:56PM EST (Author) Electronically signed by : Carlene Whitehead, PT; Jan 17 2023 3:06PM EST Normal [employer] PT Progress Noteon 3 PT Progress Note [...] . the patient will continue therapy at [facility]. Potential to achieve rehab goals is fair: [...] code time is 44 minutes. Therapeutic exercise (91500): timed minutes 34, units 2 . NuStep [...] x 10 orange band . Manual Therapy (21793): timed minutes 10, units 1 . STW to glutes and QL 10'. Provided today:. 12/25/22 [id number] Provided and reviewed HEP, patient demosntrated good understanding. 'Scores and Scales' Signatures Electronically signed by : Zoila Lopez, CHANGE OF ADDRESS CLERK; Dec 30 2022 5:01PM EST (Author) Electronically signed by : Carlene Whitehead, PT; Jan 17 2023 3:06PM EST Normal [employer] PT Progress Noteon 3 PT Progress Note [...] . the patient will continue therapy at [facility]. Potential to achieve rehab goals is fair: [...] Declined. Insurance Insurance reviewed Visit number: 2 [facility] Evaluating therapist Shoaib Bhandari PT. [...] code time is 41 minutes. Therapeutic exercise (66652): timed minutes 31, units 2 . NuStep 5? start wall lean n mini squat x10 LTR x10 5? hold Piriformis stretch 3 x 30? Supine QL stretch 3 x 30? Hip flex stretch EOB TrA x10 5? hold Hooklying TrA/hip add ball 2 x 10 3? hold Hooklying TrA/hip abd 2 x 10 orange band . Manual Therapy (16278): timed minutes 10, units 1 . STW to gluts and QL. Provided today:. 12/25/22 [id number] Provided and reviewed HEP, patient demosntrated good understanding. 'Scores and Scales' Signatures Electronically signed by : Chaya Chan, CHANGE OF ADDRESS CLERK; Dec 25 2022 10:14AM EST (Author) Electronically signed by : Carlene Whitehead, PT; Jan 17 2023 3:06PM EST Normal [employer] PT Initial Evaluationon 12-03 PT Initial Evaluation [...] . the patient will continue therapy at [facility]. 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 Assessment At least a 5 yr HX of LBP (previous HX of sciatica). No recent film studies have been done. He will be a low fall risk. The patient will continue his therapy at [facility]. Physical findings include limited trunk ROM with [...] Declined. Insurance Insurance reviewed Visit number: 1 [facility] Evaluating therapist Shoaib Bhandari PT. [...] Impact Care:. ID confirmed with B-day; speaks south african No obtrusive barriers to learning identified/observed. Objective [...] am Time (more content not included)... Normal [employer] US DOPPLER CAROTIDOrdered By : Mary Vargas on 02-26-2021 Patient Info Name: ENOC ARMANDO Age: 75 years : 1945 Gender: Male Exam Date: 02/26/2021 1:55 PM Patient Status: Outpatient Needle Molder: Melissa Swift BS, RDMS (AB), RVT Referring Physician: MARY VARGAS ; Indications I65.23 - Occlusion and stenosis of bilateral carotid arteries Procedure Description 31242 Duplex examination using B-mode, color and spectral [...] in the (more content not included)... [facility] Interface, Rad In Heartlab Xper Echopacs - 02/26/2021 4:33 PM EDT Patient Info Name: ENOC ARMANDO Age: 75 years : 1945 Gender: Male Exam Date: 02/26/2021 1:55 PM Patient Status: Outpatient Needle Molder: Melissa Swift, TAMMI, RDMS (AB), RVT Referring Physician: MARY VARGAS ; Indications I65.23 - Occlusion and stenosis of bilateral carotid arteries Procedure Description 70990 Duplex examination using B-mode, color and spectral [...] Nguyen DO on 02/26/2021 04:31 PM [facility] Auto Diffon 07-04-2019 Basophils (Bld) [#/Vol] 0.1 E3/mcL Normal 0.0-0.2 [facility] Comment on above: Order Comment: Order Added by Discern Expert. Performed By: #### 2 [id number] #### MIKE Zazueta [address] [place] [address]692 Basophils/100 WBC (Bld) 1.2 % Normal 0.0-2.0 [facility] Comment on above: Order Comment: Order Added by Discern Expert. Performed By: #### 2 [id number] #### MIKE [employer] [address] [place] [address]115 Eos Absolute 0.2 E3/mcL Normal 0.0-0.7 [facility] Comment on above: Order Comment: Order Added by Discern Expert. Performed By: #### 2 491031 #### MIKE [employer] [address] [place] [address] 97618 Eosinophils/100 WBC (Bld) 2.0 % Normal 0.0-11.0 [facility] Comment on above: Order Comment: Order Added by Discern Expert. Performed By: #### 2 178770 #### MIKE [employer] [address] [place] [address] 82369 Lymphocytes (Bld) [#/Vol] 1.7 E3/mcL Normal 1.2-3.4 [facility] Comment on above: Order Comment: Order Added by Discern Expert. Performed By: #### 2 636632 #### MIKE [employer] [address] [place] [address] 45113 Lymphocytes/100 WBC (Bld) 20.9 % Normal 20.0-55.0 [facility] Comment on above: Order Comment: Order Added by Discern Expert. Performed By: #### 2 685662 #### MIKE [employer] [address] [place] [address] [place] Absolute 0.7 E3/mcL Normal 0.0-0.7 [facility] Comment on above: Order Comment: Order Added by Discern Expert. Performed By: #### 2 472885 #### MIKE [address] [place] [address] Monocytes/100 WBC (Bld) 8.0 % Normal 0.0-10.0 [facility] Comment on above: Order Comment: Order Added by Discern Expert. Performed By: #### 2 389604 #### MIKE [employer] [address] [place] [address] 30671 Neutro Absolute 5.5 E3/mcL Normal 1.4-6.5 [facility] Comment on above: Order Comment: Order Added by Discern Expert. Performed By: #### 2 248968 #### MIKE Rodriguez[address] [address] Neutro Auto 67.9 % Normal 37.0-75.0 [facility] Comment on above: Order Comment: Order Added by Discern Expert. Performed By: #### 2 415384 #### MIKE Rodriguez[address] [address] CBC w/ Auto Diffon 9 Erythrocyte distribution width (RBC) [Ratio] 13.3 % Normal 11.5-14.5 [facility] Comment on above: Performed By: #### 2 130409 #### MIKE [address] [place] [address] Hematocrit (Bld) [Volume fraction] 40.4 % Low 42.0-52.0 [facility] Comment on above: Performed By: #### 2 906350 #### MIKEAnabelle Rodriguez[address] [address] Hemoglobin (Bld) [Mass/Vol] 13.6 g/dL Normal 13.5-18.0 [facility] Comment on above: Performed By: #### 2 566362 #### MIKE Rodriguez[address] [address] MCH (RBC) [Entitic mass] 31.6 pg High 27.0-31.0 [facility] Comment on above: Performed By: #### 2 699531 #### MIKE [employer] [address] [place] [address] MCHC (RBC) [Mass/Vol] 33.7 g/dL Normal 33.0-37.0 [facility] Comment on above: Performed By: #### 2 504046 #### MIKE [employer] [address] [place] [address] MCV (RBC) [Entitic vol] 93.8 fL Normal 78.0-100.0 [facility] Comment on above: Performed By: #### 2 860313 #### MIKE [employer] [address] [place] [address] Platelet mean volume (Bld) [Entitic vol] 10.2 fL Normal 7.4-11.0 [facility] Comment on above: Performed By: #### 2 118105 #### MIKE [employer] [address] [place] [address] Platelets (Bld) [#/Vol] 218 E3/mcL Normal 130-400 [facility] Comment on above: Performed By: #### 2 698265 #### MIKE [employer] [address] [place] [address] RBC (Bld) [#/Vol] 4.31 E6/mcL Normal 3.90-6.10 [facility] Comment on above: Performed By: #### 2 505165 #### MIKEAnabelle RodriguezChem [address] [place] [address] WBC (Bld) [#/Vol] 8.1 E3/mcL Normal 3.6-11.0 [facility] Comment on above: Performed By: #### 2 514622 #### MIKE [employer] [address] [place] [address] CMPon 07-04-2019 Albumin [Mass/Vol] 4.2 g/dL Normal 3.4-5.0 [facility] Comment on above: Performed By: #### 2 428102 #### MIKE [employer] [address] [place] [address] Albumin/Globulin [Mass ratio] 1.8 {ratio} Normal 1.1-1.9 [facility] Comment on above: Performed By: #### 2 558527 #### MIKE [employer] [address] [place] [address] Alk Phos 81 Int._Unit/L Normal 33-136 [facility] Comment on above: Performed By: #### 2 495726 #### MIKE [employer] [address] [place] [address] ALT [Catalytic activity/Vol] 15 Int._Unit/L Normal 10-52 [facility] Comment on above: Performed By: #### 2 162549 #### MIKE [employer] [address] [place] [address] Anion gap [Moles/Vol] 12 mmol/L Normal 10-20 [facility] Comment on above: Performed By: #### 2 488354 #### MIKE [employer] [address] [place] [address] AST [Catalytic activity/Vol] 18 Int._Unit/L Normal 9-39 [facility] Comment on above: Performed By: #### 2 205571 #### MIKE [employer] [address] [place] [address] Bili Total 0.35 mg/dL Normal 0.00-1.20 [facility] Comment on above: Performed By: #### 2 587667 #### MIKE [employer] [address] [place] [address] Calcium [Mass/Vol] 9.5 mg/dL Normal 8.6-10.3 [facility] Comment on above: Performed By: #### 2 610323 #### MIKE [employer] [address] [place] [address] Chloride [Moles/Vol] 108 mmol/L High 98-107 [facility] Comment on above: Performed By: #### 2 295099 #### MIKE [employer] [address] [place] [address] CO2 [Moles/Vol] 27.0 mmol/L Normal 21.0-32.0 [facility] Comment on above: Performed By: #### 2 537531 #### MIKE [employer] [address] [place] [address] Creatinine [Mass/Vol] 1.0 mg/dL Normal 0.5-1.3 [facility] Comment on above: Performed By: #### 2 187769 #### MIKE RodriguezNusocket [address] [place] [address] Globulin (S) [Mass/Vol] 2.0 g/dL Normal 2.0-4.0 [facility] Comment on above: Performed By: #### 2 801793 #### MIKE [employer] [address] [place] [address] Glucose [Mass/Vol] 159 mg/dL High 70-99 [facility] Comment on above: Performed By: #### 2 577676 #### MIKE RodriguezNusocket [facility] [place] [address] Potassium [Moles/Vol] 3.7 mmol/L Normal 3.5-5.3 [facility] Comment on above: Performed By: #### 2 056106 #### MIKE RodriguezNusocket [address] [place] [address] Protein [Mass/Vol] 6.5 g/dL Normal 6.4-8.2 [facility] Comment on above: Performed By: #### 2 834144 #### MIKE RodriguezNusocket [address] [place] [address] Sodium [Moles/Vol] 143 mmol/L Normal 136-145 [facility] Comment on above: Performed By: #### 2 521901 #### MIKE RodriguezNusocket [address] [place] [address] Urea nitrogen [Mass/Vol] 19 mg/dL Normal 6-23 [facility] Comment on above: Performed By: #### 2 041318 #### MIKE [employer] [address] [place] [address] Urea nitrogen/Creatinine [Mass ratio] 19.0 ratio Normal 5.4-30.0 [facility] Comment on above: Performed By: #### 2 140513 #### MIKE [employer] [address] [place] [address] [id number] 07-04-2019 HbA1c (Bld) [Mass fraction] 8.3 % High 4.0-6.3 [facility] Comment on above: Performed By: #### 2 976486 #### MIKE [employer] [address] [place] [address] eGFRon 07-04-2019 GFR/1.73 sq M predicted among non-blacks MDRD (S/P/Bld) [Vol rate/Area] mL/min/{1.73_m2} Normal [facility] Comment on above: Order Comment: Order added by Discern Expert. Performed By: #### 2 396594 #### MIKE [employer] [address] [place] [address] Auto Diffon 03-03-2019 Basophils (Bld) [#/Vol] 0.1 E3/mcL Normal 0.0-0.2 [facility] Comment on above: Order Comment: Order Added by Discern Expert. Performed By: #### 2 551479 #### MIKE RemHemo [address] [place] [address] Basophils/100 WBC (Bld) 1.0 % Normal 0.0-2.0 [facility] Comment on above: Order Comment: Order Added by Discern Expert. Performed By: #### 2 286336 #### MIKE RemHemo [address] [place] [address] Eos Absolute 0.2 E3/mcL Normal 0.0-0.7 [facility] Comment on above: Order Comment: Order Added by Andrew Expert. Performed By: #### 2 528580 #### MIKE RemHemo [address] [place] [address] Eosinophils/100 WBC (Bld) 2.6 % Normal 0.0-11.0 [facility] Comment on above: Order Comment: Order Added by Discern Expert. Performed By: #### 2 308753 #### MIKE RemHemo [address] [place] [address] Lymphocytes (Bld) [#/Vol] 2.0 E3/mcL Normal 1.2-3.4 [facility] Comment on above: Order Comment: Order Added by Discern Expert. Performed By: #### 2 233593 #### MIKE RemHemo [address] [place] [address] Lymphocytes/100 WBC (Bld) 26.7 % Normal 20.0-55.0 [facility] Comment on above: Order Comment: Order Added by Discern Expert. Performed By: #### 2 070783 #### MIKE RodriguezHemo [address] [place] [address] [place] Absolute 0.7 E3/mcL Normal 0.0-0.7 [facility] Comment on above: Order Comment: Order Added by Discern Expert. Performed By: #### 2 242555 #### MIKE Ackermano [address] [place], [place] [address] Monocytes/100 WBC (Bld) 9.4 % Normal 0.0-10.0 [facility] Comment on above: Order Comment: Order Added by Discern Expert. Performed By: #### 2 547626 #### MIKE Ackermano [address] [place], [place] [address] Neutro Absolute 4.5 E3/mcL Normal 1.4-6.5 [facility] Comment on above: Order Comment: Order Added by Discern Expert. Performed By: #### 2 362165 #### MIKE RodriguezHemo [address] [place], [place] [address] Neutro Auto 60.3 % Normal 37.0-75.0 [facility] Comment on above: Order Comment: Order Added by Discern Expert. Performed By: #### 2 483665 #### MIKE Ackermano [address] [place] [address] CBC w/ Auto Diffon 9 Erythrocyte distribution width (RBC) [Ratio] 13.2 % Normal 11.5-14.5 [facility] Comment on above: Performed By: #### 2 184058 #### MIKE RodriguezHemo [address] [place] [address] Hematocrit (Bld) [Volume fraction] 41.7 % Low 42.0-52.0 [facility] Comment on above: Performed By: #### 2 687416 #### MIKE Ackermano [facility] [place] [address] Hemoglobin (Bld) [Mass/Vol] 14.1 g/dL Normal 13.5-18.0 [facility] Comment on above: Performed By: #### 2 745185 #### MIKE RemHemo [address] [place] [address], [place] [address] MCH (RBC) [Entitic mass] 31.5 pg High 27.0-31.0 [facility] Comment on above: Performed By: #### 2 135711 #### MIKE RemHemo [address] [place] [address] MCHC (RBC) [Mass/Vol] 33.7 g/dL Normal 33.0-37.0 [facility] Comment on above: Performed By: #### 2 954891 #### MIKE RemHemo [address] [place] [address] MCV (RBC) [Entitic vol] 93.5 fL Normal 78.0-100.0 [facility] Comment on above: Performed By: #### 2 076593 #### MIKE RemHemo [facility] [place] [address] Platelet mean volume (Bld) [Entitic vol] 10.0 fL Normal 7.4-11.0 [facility] Comment on above: Performed By: #### 2 355463 #### MIKE RemHemo [facility] [place] [address] Platelets (Bld) [#/Vol] 218 E3/mcL Normal 130-400 [facility] Comment on above: Performed By: #### 2 570586 #### MIKE RemHemo [facility] [place] [address] RBC (Bld) [#/Vol] 4.46 E6/mcL Normal 3.90-6.10 [facility] Comment on above: Performed By: #### 2 631191 #### MIKE RemHemo [address] [place] [address] WBC (Bld) [#/Vol] 7.5 E3/mcL Normal 3.6-11.0 [facility] Comment on above: Performed By: #### 2 781534 #### MIKE RemHemo [address] [place] [address] CMPon 03-03-2019 Albumin [Mass/Vol] 4.1 g/dL Normal 3.4-5.0 [facility] Comment on above: Performed By: #### 2 813699 #### [facility] [employer] [address] [place] [address] Albumin/Globulin [Mass ratio] 1.6 {ratio} Normal 1.1-1.9 [facility] Comment on above: Performed By: #### 2 842587 #### [facility] [employer] [address] [place] [address] Alk Phos 83 Int._Unit/L Normal 33-136 [facility] Comment on above: Performed By: #### 2 110332 #### [facility] [employer] [address] [place], [place] [address] ALT [Catalytic activity/Vol] 13 Int._Unit/L Normal 10-52 [facility] Comment on above: Performed By: #### 2 066236 #### [facility] [employer] [address] [place], [place] [address] Anion gap [Moles/Vol] 9 mmol/L Low 10-20 [facility] Comment on above: Performed By: #### 2 807078 #### [facility] [employer] [address] [place], [place] [address] AST [Catalytic activity/Vol] 16 Int._Unit/L Normal 9-39 [facility] Comment on above: Performed By: #### 2 511680 #### [facility] [employer] [address] [place] [address] Bili Total 0.55 mg/dL Normal 0.00-1.20 [facility] Comment on above: Performed By: #### 2 791789 #### [facility] [employer] [address] [place] [address] Calcium [Mass/Vol] 9.3 mg/dL Normal 8.6-10.3 [facility] Comment on above: Performed By: #### 2 873116 #### [facility] [employer] [address] [place] [address] Chloride [Moles/Vol] 105 mmol/L Normal 98-107 [facility] Comment on above: Performed By: #### 2 263617 #### [facility] [employer] [address] [place] [address] CO2 [Moles/Vol] 28.0 mmol/L Normal 21.0-32.0 [facility] Comment on above: Performed By: #### 2 007373 #### MIKE [employer] [address] [place] [address] Creatinine [Mass/Vol] 1.0 mg/dL Normal 0.5-1.3 [facility] Comment on above: Performed By: #### 2 659915 #### MIKE [employer] [address] [place] [address] Globulin (S) [Mass/Vol] 3.0 g/dL Normal 2.0-4.0 [facility] Comment on above: Performed By: #### 2 621729 #### MIKE [employer] [address] [place] [address] Glucose [Mass/Vol] 273 mg/dL High 70-99 [facility] Comment on above: Performed By: #### 2 779222 #### MIKE [employer] [address] [place] [address] Potassium [Moles/Vol] 4.2 mmol/L Normal 3.5-5.3 [facility] Comment on above: Performed By: #### 2 461787 #### MIKE [employer] [address] [place] [address] Protein [Mass/Vol] 6.6 g/dL Normal 6.4-8.2 [facility] Comment on above: Performed By: #### 2 528822 #### MIKE [employer] [address] [place] [address] Sodium [Moles/Vol] 138 mmol/L Normal 136-145 [facility] Comment on above: Performed By: #### 2 928610 #### MIKE [employer] [address] [place] [address] Urea nitrogen [Mass/Vol] 20 mg/dL Normal 6-23 [facility] Comment on above: Performed By: #### 2 406343 #### MIKE [employer] [address] [place] [address] Urea nitrogen/Creatinine [Mass ratio] 20.0 ratio Normal 5.4-30.0 [facility] Comment on above: Performed By: #### 2 573608 #### MIKE [employer] [address] [place] [address] Free T4on 05-03-2019 Free T4 [Mass/Vol] 0.98 ng/dL Normal 0.58-1.64 [facility] Comment on above: Performed By: #### 2 325982 #### MIKE RodriguezNusocket [facility] [place] [address] [id number] 03-03-2019 HbA1c (Bld) [Mass fraction] 8.4 % High 4.0-6.3 [facility] Comment on above: Performed By: #### 2 392884 #### MIKE RodriguezNusocket [facility] [place] [address] Lipid Profileon 03-03-2019 Cholesterol [Mass/Vol] 164 mg/dL Normal 0-199 [facility] Comment on above: Result Comment: TOTA L CHOLEESTEROL: <200 NORMAL 200 - 239 BORDERLINE HIGH >240 HIGH Performed By: #### 2 308830 #### MIKE RodriguezNusocket [facility] [place] [address] Cholesterol in HDL [Mass/Vol] 53 mg/dL Normal 40-60 [facility] Comment on above: Performed By: #### 2 686535 #### MIKE RodriguezNusocket [facility] [place] [address] Cholesterol in LDL [Mass/Vol] 98 mg/dL Normal 0-130 [facility] Comment on above: Result Comment: <100 OPTIMAL 100-129 NEAR / ABOVE OPTIMAL 130-159 BORDERLINE HIGH 160-189 HIGH >190 VERY HIGH CALC LDL NOT VALID WHEN TRIGLYCERIDE IS >400 MG/DL Performed By: #### 2 713946 #### MIKE [employer] [facility] [place] [address] Cholesterol in VLDL [Mass/Vol] 13 mg/dL Normal 0-40 [facility] Comment on above: Performed By: #### 2 265302 #### MIKE RemNusocket [address] [place] [address] Triglyceride [Mass/Vol] 66 mg/dL Normal 0-149 [facility] Comment on above: Result Comment: AGE DESIRABLE BORDERLINE HIGH 91 D - 9 Y 0 - 74 75 - 99 > 100 10 - 19 Y 0 - 89 90 - 129 > 130 20 -24 Y 0 - 114 115 - 149 > 150 > 25 0 - 149 150 - 199 200 - 499 Performed By: #### 2 045943 #### MIKE RemNusocket [facility] [place] [address] Microalb/Creat Ratioon 03-03 Creatinine [Mass/Vol] 111.0 mg/dL Normal 20.0-300.0 [facility] Comment on above: Performed By: #### 1 [id number] #### MIKE [employer] [facility] [place] [address] Creatinine [Mass/Vol] 95 ug/mg High 0-30 [facility] Comment on above: Performed By: #### 1 3055897 #### MIKE [employer] [address] [place] [address] Ur Microalbumin 10.6 mg/dL High 0.0-1.9 [facility] Comment on above: Performed By: #### 1 1094346 #### MIKE [employer] [address] [place] [address] TSHon 03-03-2019 TSH Qn 0.52 mcIU/mL Normal 0.30-5.60 [facility] Comment on above: Performed By: #### 2 121234 #### MIKE [employer] [address] [place], [place] [address] eGFRon 03-03-2019 GFR/1.73 sq M predicted among non-blacks MDRD (S/P/Bld) [Vol rate/Area] mL/min/{1.73_m2} Normal [facility] Comment on above: Order Comment: Order added by Discern Expert. Performed By: #### 1 [id number] #### MIKE [employer] [address] [place], [place] [address] XR Spine Lumbosacral Complet e w/ Bendingon 02-08-2019 XR Spine Lumbosacral Complete w/ Bending Exam Date/Time: 02/08/2019 11:16 EDT Reason for Exam: M54.16 Report STUDY: XR Spine Lumbosacral Complete w/ Bending; 02/08/2019 11:16 am INDICATION: M54.16. COMPARISON: 08/12/2018 ACCESSION NUMBER(S): [id number] ORDERING CLINICIAN: Yamilex Muro FINDINGS: 8 views of the lumbar spine including supine and standing AP, lateral and lateral flexion and extension views were obtained. There is no acute fracture identified. There is mild retrolisthesis of L2 on L3 and of L3 on L4. Dero-vk-dgywrchd disc space narrowing and marginal osteophyte formation [...] by: Jaret Walker MD Technologist: GEE Normal [facility] CMPon 11-02-2018 Albumin [Mass/Vol] 4.2 g/dL Normal 3.4-5.0 [facility] Comment on above: Performed By: #### 2 976055 #### MIKE RemNusocket [address] [place] [address] Albumin/Globulin [Mass ratio] 1.8 {ratio} Normal 1.1-1.9 [facility] Comment on above: Performed By: #### 2 728299 #### MIKE RemNusocket [address] [place] [address] Alk Phos 98 Int._Unit/L Normal 33-136 [facility] Comment on above: Performed By: #### 2 874880 #### MIKE [employer] [facility] [place] [address] ALT [Catalytic activity/Vol] 18 Int._Unit/L Normal 10-52 [facility] Comment on above: Performed By: #### 2 183212 #### MIKE [employer] [address] [place] [address] Anion gap [Moles/Vol] 10 mmol/L Normal 10-20 [facility] Comment on above: Performed By: #### 2 776316 #### MIKE [employer] [address] [place] [address] AST [Catalytic activity/Vol] 17 Int._Unit/L Normal 9-39 [facility] Comment on above: Performed By: #### 2 928870 #### MIKE [employer] [address] [place] [address] Bili Total 0.39 mg/dL Normal 0.00-1.20 [facility] Comment on above: Performed By: #### 2 279253 #### MIKE [employer] [address] [place] [address] Calcium [Mass/Vol] 9.7 mg/dL Normal 8.6-10.3 [facility] Comment on above: Performed By: #### 2 275653 #### MIKE [employer] [address] [place] [address] Chloride [Moles/Vol] 106 mmol/L Normal 98-107 [facility] Comment on above: Performed By: #### 2 699376 #### MIKE [employer] [facility] [place] [address] CO2 [Moles/Vol] 27.0 mmol/L Normal 21.0-32.0 [facility] Comment on above: Performed By: #### 2 053429 #### MIKE [employer] [address] [place] [address] Creatinine [Mass/Vol] 1.2 mg/dL Normal 0.5-1.3 [facility] Comment on above: Performed By: #### 2 419848 #### MIKE [employer] [facility] [place] [address] Globulin (S) [Mass/Vol] 2.0 g/dL Normal 2.0-4.0 [facility] Comment on above: Performed By: #### 2 101924 #### MIKE [employer] [address] [place] [address] Glucose [Mass/Vol] 307 mg/dL High 70-99 [facility] Comment on above: Performed By: #### 2 987156 #### MIKE [employer] [address] [place] [address] Potassium [Moles/Vol] 3.9 mmol/L Normal 3.5-5.3 [facility] Comment on above: Performed By: #### 2 901691 #### MIKE [employer] [address] [place] [address] Protein [Mass/Vol] 6.5 g/dL Normal 6.4-8.2 [facility] Comment on above: Performed By: #### 2 195997 #### MIKE [employer] [address] [place] [address] Sodium [Moles/Vol] 139 mmol/L Normal 136-145 [facility] Comment on above: Performed By: #### 2 755711 #### MIKE [employer] [address] [place] [address] Urea nitrogen [Mass/Vol] 23 mg/dL Normal 6-23 [facility] Comment on above: Performed By: #### 2 089420 #### MIKE [employer] [facility] [place] [address] Urea nitrogen/Creatinine [Mass ratio] 19.2 ratio Normal 5.4-30.0 [facility] Comment on above: Performed By: #### 2 861355 #### MIKE [employer] [facility] [place] [address] [id number] 11-02-2018 HbA1c (Bld) [Mass fraction] 8.4 % High 4.0-6.3 [facility] Comment on above: Performed By: #### 3 [id number] #### MIKE Chemistry Manual Subsection [address] [place] [address] eGFRon 11-02-2018 GFR/1.73 sq M predicted among non-blacks MDRD (S/P/Bld) [Vol rate/Area] mL/min/{1.73_m2} Normal [facility] Comment on above: Order Comment: Order added by Discern Expert. Performed By: #### 1 [id number] #### MIKE [employer] [address] [place], [place] [address] XR Spine Lumbar w/ Obliqueso n 08-13-2018 XR Spine Lumbar w/ Obliques Exam Date/Time: 08/12/2018 14:38 EDT Reason for Exam: low back pain with left sided sciatica Report STUDY: XR Spine Lumbar w/ Obliques; 08/12/2018 2:38 pm INDICATION: low back pain with left sided sciatica. COMPARISON: None. ACCESSION NUMBER(S): [id number] ORDERING CLINICIAN: Nancy Mirza FINDINGS: Five views of the lumbar spine including AP, lateral, lateral cone-down and bilateral oblique views were obtained. There is no acute fracture identified. There is mild retrolisthesis of L2 on L3 and of L3 on L4. [id number] disc space narrowing and marginal osteophyte formation [...] Signed by: Jaret Walker MD Technologist: KAVITA [facility] Carotid Duplexon 02-09-2018 Carotid Duplex Non-Invasive Vascular Patient: TR [facility] Rec#: [id number] (Age): 1945(72y) Study Date: 02/09/2018 Room#: Type: Sex: M Reading: AALIYAH Reading: Flo Abdi DO, RPVI Referring: NANCY MIRZA JOHN Maintenance Groundman: Christie Trinidad Procedure Info: [id number]... Study Quality: Carotid Duplex: adequate Diagnosis: I65.23 [...] Carotid Duplex Interface, [facility] - 02/09/2018 4:37 PM EDT Non-Invasive Vascular Patient: TR [facility] Rec#: [id number] (Age): 1945(72y) Study Date: 02/09/2018 Room#: Type: Sex: M Reading: AALIYAH Reading: Flo Abdi DO, RPVI Referring: NANCY MIRZA JOHN Maintenance Groundman: Christie Trinidad Procedure Info: [id number]... Study Quality: Carotid Duplex: adequate Diagnosis: I65.23 [...] Flo Abdi DO, RPVI Invalid Interpretation Code [facility] RAD Vital Signs Date Time Vital Sign Value Performing Clinician Facility 04-10-2025 15:10-0400 Diastolic blood pressure 78 mm[Hg] Ryley Jeter MD Work Phone: [facility] 04-10-2025 15:10-0400 Heart rate 80 /min Ryley Jeter MD Work Phone: [facility] 04-10-2025 15:10-0400 Systolic blood pressure 144 mm[Hg] Ryley Jeter MD Work Phone: [facility] 04-10-2025 13:39-0400 Respiratory rate 16 /min Ryley Jeter MD Work Phone: [facility] 04-10-2025 09:38-0400 Inhaled oxygen flow rate 2 L/min Ryley Jeter MD Work Phone: [facility] 04-10-2025 09:38-0400 SaO2% (BldA) [Mass fraction] 98 % Ryley Jeter MD Work Phone: [facility] 04-10-2025 08:45-0400 Body temperature 97.9 [degF] Ryley Jeter MD Work Phone: [facility] 04-10-2025 03:42-0400 Body mass index (BMI) [Ratio] 22.3 kg/m2 Ryley Jeter MD Work Phone: [facility] 04-10-2025 03:42-0400 Body weight 64.7 kg Ryley Jeter MD Work Phone: [facility] 04-10-2025 00:32-0400 Inhaled oxygen concentration 30 % Ryley Jeter MD Work Phone: [facility] 04-09-2025 14:07-0400 Body height 170.18 cm Ryley Jeter MD Work Phone: [facility] 04-03-2025 05:40-0400 Heart rate 110 /min Ryley Jeter MD Work Phone: [facility] 04-03-2025 05:40-0400 Inhaled oxygen concentration 30 % Ryley Jteer MD Work Phone: [facility] 04-03-2025 05:40-0400 Respiratory rate 21 /min Ryley Jeter MD Work Phone: [facility] 04-03-2025 05:40-0400 SaO2% (BldA) [Mass fraction] 98 % Ryley Jeter MD Work Phone: [facility] 04-03-2025 05:17-0400 Body height 170.18 cm Ryley Jeter MD Work Phone: [facility] 04-03-2025 05:17-0400 Body mass index (BMI) [Ratio] 21.2 kg/m2 Ryley Jeter MD Work Phone: [facility] 04-03-2025 05:17-0400 Body temperature 98 [degF] Ryley Jeter MD Work Phone: [facility] 04-03-2025 05:17-0400 Body weight 61.5 kg Ryley Jeter MD Work Phone: [facility] 04-03-2025 05:17-0400 Diastolic blood pressure 77 mm[Hg] Ryley Jeter MD Work Phone: [facility] 04-03-2025 05:17-0400 Systolic blood pressure 167 mm[Hg] Ryley Jeter MD Work Phone: [facility] 04-03-2025 03:00-0400 Inhaled oxygen flow rate 4 L/min Ryley Jeter MD Work Phone: [facility] 03-12-2025 13:50-0400 Body mass index (BMI) [Ratio] 21.9 kg/m2 Paty Ortega DISABILITY SPECIALIST Work Phone: [facility] 03-12-2025 13:50-0400 Body weight 63.41 kg Paty Ortega DISABILITY SPECIALIST Work Phone: [facility] 03-12-2025 13:50-0400 Diastolic blood pressure 61 mm[Hg] Paty Ortega DISABILITY SPECIALIST Work Phone: [facility] 03-12-2025 13:50-0400 Heart rate 69 /min Paty Ortega DISABILITY SPECIALIST Work Phone: [facility] 03-12-2025 13:50-0400 Systolic blood pressure 166 mm[Hg] Paty Ortega DISABILITY SPECIALIST Work Phone: [facility] 03-09-2025 09:42-0400 Body height 170.2 cm Woo Small MD Work Phone: [facility] 03-09-2025 09:42-0400 Body mass index (BMI) [Ratio] 21.9 kg/m2 Woo Small MD Work Phone: [facility] 03-09-2025 09:42-0400 Body weight 63.41 kg Woo Small MD Work Phone: [facility] 03-09-2025 09:42-0400 Diastolic blood pressure 54 mm[Hg] Woo Small MD Work Phone: [facility] 03-09-2025 09:42-0400 Heart rate 73 /min Woo Small MD Work Phone: [facility] 03-09-2025 09:42-0400 SaO2% (BldA) [Mass fraction] 98 % Woo Small MD Work Phone: [facility] 03-09-2025 09:42-0400 Systolic blood pressure 172 mm[Hg] Woo Small MD Work Phone: [facility] 02-26-2025 13:01-0400 Body height 172.7 cm Ayanna Albert DO Work Phone: [facility] 02-26-2025 13:01-0400 Body mass index (BMI) [Ratio] 21.47 kg/m2 Ayanna Albert Work Phone: [facility] 02-26-2025 13:01-0400 Body weight 64.05 kg Ayanna Albert DO Work Phone: [facility] 02-26-2025 13:01-0400 Diastolic blood pressure 68 mm[Hg] Ayanna Albert DO Work Phone: [facility] 02-26-2025 13:01-0400 Heart rate 72 /min Ayanna Albert DO Work Phone: [facility] 02-26-2025 13:01-0400 Systolic blood pressure 158 mm[Hg] Ayanna Albert DO Work Phone: [facility] 11-14-2024 10:44-0500 Diastolic blood pressure 61 mm[Hg] Woo Day Work Phone: [facility] 11-14-2024 10:44-0500 Heart rate 57 /min Woo Day Work Phone: [facility] 11-14-2024 10:44-0500 SaO2% (BldA) [Mass fraction] 96 % Woo Work Phone: [facility] 11-14-2024 10:44-0500 Systolic blood pressure 185 mm[Hg] Woo Day Work Phone: [facility] 11-14-2024 10:37-0500 Body height 170.2 cm Woo Day Work Phone: [facility] 11-14-2024 10:37-0500 Body mass index (BMI) [Ratio] 23.57 kg/m2 Woo Day Work Phone: [facility] 11-14-2024 10:37-0500 Body weight 68.27 kg Woo Day Work Phone: [facility] 11-13-2024 11:16-0500 Body mass index (BMI) [Ratio] 23.45 kg/m2 Paty Ortega DISABILITY SPECIALIST Work Phone: [facility] 11-13-2024 11:16-0500 Body weight 67.9 kg Paty Ortega DISABILITY SPECIALIST Work Phone: [facility] 11-13-2024 11:16-0500 Diastolic blood pressure 51 mm[Hg] Paty Ortega DISABILITY SPECIALIST Work Phone: [facility] 11-13-2024 11:16-0500 Heart rate 71 /min Paty Ortega DISABILITY SPECIALIST Work Phone: [facility] 11-13-2024 11:16-0500 Systolic blood pressure 107 mm[Hg] Paty Ortega DISABILITY SPECIALIST Work Phone: [facility] 11-09-2024 10:42-0500 Diastolic blood pressure 64 mm[Hg] Kristy Parker MD Work Phone: [facility] 11-09-2024 10:42-0500 Heart rate 58 /min Kristy Parker MD Work Phone: [facility] 11-09-2024 10:42-0500 Systolic blood pressure 160 mm[Hg] Kristy Parker MD Work Phone: [facility] 11-09-2024 10:32-0500 Body height 170.2 cm Kristy Parker MD Work Phone: [facility] 11-09-2024 10:32-0500 Body mass index (BMI) [Ratio] 23.18 kg/m2 Kristy Parker MD Work Phone: [facility] 11-09-2024 10:32-0500 Body weight 67.13 kg Kristy Parker MD Work Phone: [facility] 11-07-2024 09:54-0500 Diastolic blood pressure 61 mm[Hg] Brock Groves MD Work Phone: [facility] 11-07-2024 09:54-0500 Systolic blood pressure 143 mm[Hg] Brock Groves MD Work Phone: [facility] 11-07-2024 09:51-0500 Body height 170.2 cm Brock Groves MD Work Phone: [facility] 11-07-2024 09:51-0500 Body mass index (BMI) [Ratio] 23.02 kg/m2 Brock Groves MD Work Phone: [facility] 11-07-2024 09:51-0500 Body temperature 97.39 [degF] Brock Groves MD Work Phone: [facility] 11-07-2024 09:51-0500 Body weight 66.68 kg Brock Groves MD Work Phone: [facility] 11-07-2024 09:51-0500 Heart rate 63 /min Brock Groves MD Work Phone: [facility] 11-07-2024 09:51-0500 SaO2% (BldA) [Mass fraction] 100 % Brock Groves MD Work Phone: [facility] 10-28-2024 11:06-0500 Diastolic blood pressure 51 mm[Hg] Nidia Garay MD Work Phone: [facility] 10-28-2024 11:06-0500 Heart rate 68 /min Nidia Garay MD Work Phone: [facility] 10-28-2024 11:06-0500 Respiratory rate 14 /min Nidia Garay MD Work Phone: [facility] 10-28-2024 11:06-0500 SaO2% (BldA) [Mass fraction] 94 % Nidia Garay MD Work Phone: [facility] 10-28-2024 11:06-0500 Systolic blood pressure 153 mm[Hg] Nidia Garay MD Work Phone: [facility] 10-28-2024 07:24-0500 Body temperature 97.59 [degF] Nidia Garay MD Work Phone: [facility] 10-28-2024 05:11-0500 Body mass index (BMI) [Ratio] 22.44 kg/m2 Nidia Garay MD Work Phone: [facility] 10-28-2024 05:11-0500 Body weight 65 kg Nidia Garay MD Work Phone: [facility] 10-27-2024 16:36-0500 Body height 170.2 cm Nidia Garay MD Work Phone: [facility] 10-27-2024 14:18-0500 SaO2% (BldA) [Mass fraction] 97.3 % Nidia Garay MD Work Phone: [facility] 10-18-2024 13:46-0500 Diastolic blood pressure 61 mm[Hg] Woo Small MD Work Phone: [facility] 10-18-2024 13:46-0500 Heart rate 67 /min Woo Small MD Work Phone: [facility] 10-18-2024 13:46-0500 SaO2% (BldA) [Mass fraction] 100 % Woo Work Phone: [facility] 10-18-2024 13:46-0500 Systolic blood pressure 103 mm[Hg] Woo Day Work Phone: [facility] 10-18-2024 13:27-0500 Body height 172.7 cm Woo Day Work Phone: [facility] 10-18-2024 13:27-0500 Body mass index (BMI) [Ratio] 22.52 kg/m2 Woo Day Work Phone: [facility] 10-18-2024 13:27-0500 Body weight 67.18 kg Woo Day Work Phone: [facility] 08-29-2024 13:04-0400 Diastolic blood pressure 72 mm[Hg] Ayanna Young DO Work Phone: [facility] 08-29-2024 13:04-0400 Systolic blood pressure 168 mm[Hg] Ayanna Young DO Work Phone: [facility] 08-29-2024 12:57-0400 Body height 172.7 cm Ayanna Young DO Work Phone: [facility] 08-29-2024 12:57-0400 Body mass index (BMI) [Ratio] 22.72 kg/m2 Ayanna Young DO Work Phone: [facility] 08-29-2024 12:57-0400 Body weight 67.77 kg Ayanna Young DO Work Phone: [facility] 08-29-2024 12:57-0400 Heart rate 64 /min Ayanna Young DO Work Phone: [facility] 07-21-2024 14:12-0400 Diastolic blood pressure 68 mm[Hg] Paty Ortega DISABILITY SPECIALIST Work Phone: [facility] 07-21-2024 14:12-0400 Systolic blood pressure 166 mm[Hg] Paty Ortega CNP Work Phone: [facility] 07-21-2024 13:38-0400 Body mass index (BMI) [Ratio] 22.44 kg/m2 Paty Ortega DISABILITY SPECIALIST Work Phone: [facility] 07-21-2024 13:38-0400 Body weight 66.95 kg Paty Ortega CNP Work Phone: [facility] 07-21-2024 13:38-0400 Heart rate 69 /min Paty Ortega CNP Work Phone: [facility] 04-24-2024 10:09-0400 Diastolic blood pressure 70 mm[Hg] Woomert Small MD Work Phone: [facility] Comment on above: Manual 04-24-2024 10:09-0400 Systolic blood pressure 150 mm[Hg] Woo Day Work Phone: [facility] Comment on above: Manual 04-24-2024 09:44-0400 Body height 172.7 cm Woomert Small MD Work Phone: [facility] 04-24-2024 09:44-0400 Body mass index (BMI) [Ratio] 22.43 kg/m2 Woo Day Work Phone: [facility] 04-24-2024 09:44-0400 Body weight 66.91 kg Woomert Small MD Work Phone: [facility] 04-24-2024 09:44-0400 Heart rate 53 /min Woomert Small MD Work Phone: [facility] 04-24-2024 09:44-0400 SaO2% (BldA) [Mass fraction] 96 % Woo Day Work Phone: [facility] 02-24-2024 13:44-0400 Body height 172.7 cm Madie BERMAN DNP Work Phone: [facility] 02-24-2024 13:44-0400 Body mass index (BMI) [Ratio] 23.11 kg/m2 Madie BERMAN DNP Work Phone: [facility] 02-24-2024 13:44-0400 Body weight 68.95 kg Madie Albert APRN-DISABILITY SPECIALIST, DNP Work Phone: [facility] 02-24-2024 13:44-0400 Diastolic blood pressure 68 mm[Hg] Madie Albert APRN-DISABILITY SPECIALIST, DNP Work Phone: [facility] 02-24-2024 13:44-0400 Heart rate 76 /min Madie Albert NURSE CHEMICAL DEPENDENCY-DISABILITY SPECIALIST, DNP Work Phone: [facility] 02-24-2024 13:44-0400 Systolic blood pressure 142 mm[Hg] Madie Albert APRN-DISABILITY SPECIALIST, DNP Work Phone: [facility] 02-18-2024 12:48-0400 Body mass index (BMI) [Ratio] 23.11 kg/m2 Paty Ortega DISABILITY SPECIALIST Work Phone: [facility] 02-18-2024 12:48-0400 Body weight 68.95 kg Paty Ortega DISABILITY SPECIALIST Work Phone: [facility] 02-18-2024 12:48-0400 Diastolic blood pressure 79 mm[Hg] Paty Ortega DISABILITY SPECIALIST Work Phone: [facility] 02-18-2024 12:48-0400 Heart rate 67 /min Paty Ortega DISABILITY SPECIALIST Work Phone: [facility] 02-18-2024 12:48-0400 Systolic blood pressure 131 mm[Hg] Paty Ortega DISABILITY SPECIALIST Work Phone: [facility] 01-14-2024 11:02-0400 Body height 172.7 cm Aylin Lacy DISABILITY SPECIALIST Work Phone: [facility] 01-14-2024 11:02-0400 Body mass index (BMI) [Ratio] 24.01 kg/m2 Aylin Lacy DISABILITY SPECIALIST Work Phone: [facility] 01-14-2024 11:02-0400 Body weight 71.62 kg Aylin Lacy DISABILITY SPECIALIST Work Phone: [facility] 01-14-2024 11:02-0400 Diastolic blood pressure 78 mm[Hg] Aylin Lacy DISABILITY SPECIALIST Work Phone: [facility] 01-14-2024 11:02-0400 Heart rate 70 /min Aylin aLcy DISABILITY SPECIALIST Work Phone: [facility] 01-14-2024 11:02-0400 SaO2% (BldA) [Mass fraction] 94 % Aylin Lacy DISABILITY SPECIALIST Work Phone: [facility] 01-14-2024 11:02-0400 Systolic blood pressure 139 mm[Hg] Aylin Lacy DISABILITY SPECIALIST Work Phone: [facility] 12-01-2023 08:00-0500 Body temperature 97.9 [degF] Kathleen Story MD Work Phone: [facility] 12-01-2023 08:00-0500 Diastolic blood pressure 73 mm[Hg] Kathleen Story MD Work Phone: [facility] 12-01-2023 08:00-0500 Heart rate 91 /min Kathleen Story MD Work Phone: [facility] 12-01-2023 08:00-0500 Respiratory rate 18 /min Kathleen Story MD Work Phone: [facility] 12-01-2023 08:00-0500 SaO2% (BldA) [Mass fraction] 94 % Kathleen Story MD Work Phone: [facility] 12-01-2023 08:00-0500 Systolic blood pressure 134 mm[Hg] Kathleen Story MD Work Phone: [facility] 12-01-2023 06:00-0500 Body mass index (BMI) [Ratio] 23.96 kg/m2 aKthleen Story MD Work Phone: [facility] 12-01-2023 06:00-0500 Body weight 69.4 kg Kathleen Story MD Work Phone: [facility] 11-27-2023 04:06-0500 SaO2% (BldA) [Mass fraction] 96.0 % Kathleen Story MD Work Phone: [facility] 11-27-2023 03:00-0500 Body height 170.2 cm Kathleen Story MD Work Phone: [facility] 11-27-2023 01:39-0500 Diastolic blood pressure 79 mm[Hg] Ger Bansal DO Work Phone: [facility] 11-27-2023 01:39-0500 Heart rate 77 /min Ger Bansal DO Work Phone: [facility] 11-27-2023 01:39-0500 Respiratory rate 20 /min Ger Bansal DO Work Phone: [facility] 11-27-2023 01:39-0500 SaO2% (BldA) [Mass fraction] 95 % Ger Bansal DO Work Phone: [facility] 11-27-2023 01:39-0500 Systolic blood pressure 148 mm[Hg] Ger Bansal DO Work Phone: [facility] 11-26-2023 21:22-0500 Body height 172.7 cm Ger Bansal DO Work Phone: [facility] 11-26-2023 21:22-0500 Body mass index (BMI) [Ratio] 22.5 kg/m2 Ger Bansal DO Work Phone: [facility] 11-26-2023 21:22-0500 Body temperature 97.11 [degF] Ger Bansal DO Work Phone: [facility] 11-26-2023 21:22-0500 Body weight 67.13 kg Ger Bansal DO Work Phone: [facility] 10-21-2023 08:54-0500 Body height 172.7 cm Woo Small MD Work Phone: [facility] 10-21-2023 08:54-0500 Body mass index (BMI) [Ratio] 22.61 kg/m2 Woo Small MD Work Phone: [facility] 10-21-2023 08:54-0500 Body weight 67.45 kg Woo Small MD Work Phone: [facility] 10-21-2023 08:54-0500 Diastolic blood pressure 67 mm[Hg] Woo Small MD Work Phone: [facility] 10-21-2023 08:54-0500 Heart rate 65 /min Woo Small MD Work Phone: [facility] 10-21-2023 08:54-0500 SaO2% (BldA) [Mass fraction] 99 % Woo Small MD Work Phone: [facility] 10-21-2023 08:54-0500 Systolic blood pressure 128 mm[Hg] Woo Small MD Work Phone: [facility] 10-13-2023 11:55-0500 SaO2% (BldA) [Mass fraction] 92 % Praful Pineda MD Work Phone: [facility] 10-13-2023 10:39-0500 Heart rate 97 /min Praful Pineda MD Work Phone: [facility] 10-13-2023 09:35-0500 Body height 171.5 cm Praful Pineda MD Work Phone: [facility] 10-13-2023 09:35-0500 Body mass index (BMI) [Ratio] 24.38 kg/m2 Praful Pineda MD Work Phone: [facility] 10-13-2023 09:35-0500 Body weight 71.7 kg Praful Pineda MD Work Phone: [facility] 10-12-2023 20:45-0500 Body temperature 98.1 [degF] Praful Pineda MD Work Phone: [facility] 10-12-2023 20:45-0500 Diastolic blood pressure 85 mm[Hg] Praful Pineda MD Work Phone: [facility] 10-12-2023 20:45-0500 Respiratory rate 16 /min Praful Pineda MD Work Phone: [facility] 10-12-2023 20:45-0500 Systolic blood pressure 123 mm[Hg] Praful Pineda MD Work Phone: [facility] 10-11-2023 01:56-0500 Body temperature 37.0 Praful Pineda MD Work Phone: [facility] 10-11-2023 01:56-0500 SaO2% (BldA) [Mass fraction] 93 % Praful Pineda MD Work Phone: [facility] 10-08-2023 11:12-0500 Diastolic blood pressure 66 mm[Hg] Mary Vargas MD Work Phone: [facility] 10-08-2023 11:12-0500 Heart rate 67 /min Mary Vargas MD Work Phone: [facility] 10-08-2023 11:12-0500 Systolic blood pressure 199 mm[Hg] Mary Vargas MD Work Phone: [facility] 10-08-2023 11:05-0500 Body mass index (BMI) [Ratio] 24.18 kg/m2 Mary Vargas MD Work Phone: [facility] 10-08-2023 11:05-0500 Body weight 72.12 kg Mary Vargas MD Work Phone: [facility] 08-25-2023 14:11-0400 Body weight 72.12 kg Ayanna Albert DO Work Phone: [facility] 08-25-2023 14:11-0400 Diastolic blood pressure 62 mm[Hg] Ayanna Albert DO Work Phone: [facility] 08-25-2023 14:11-0400 Heart rate 62 /min Ayanna Albert DO Work Phone: [facility] 08-25-2023 14:11-0400 Systolic blood pressure 144 mm[Hg] Ayanna Albert DO Work Phone: [facility] 07-27-2023 14:48-0400 Diastolic blood pressure 78 mm[Hg] Nancy Mirza Work Phone: [facility] Work Phone: 07-27-2023 14:48-0400 Systolic blood pressure 152 mm[Hg] Nancy Mirza Work Phone: [facility] Work Phone: 07-27-2023 14:45-0400 Body height 172.72 cm Nancy Mirza Work Phone: [facility] Work Phone: 07-27-2023 14:45-0400 Body mass index (BMI) [Ratio] 24.05 kg/m2 Nancy Mirza Work Phone: [facility] Work Phone: 07-27-2023 14:45-0400 Body surface area Derived from formula 1.85 m2 Nancy Mirza Work Phone: [facility] Work Phone: 07-27-2023 14:45-0400 Body weight 71.76 kg Nancy Mirza Work Phone: [facility] Work Phone: 07-27-2023 14:45-0400 Diastolic blood pressure 88 mm[Hg] Nancy Mirza Work Phone: [facility] Work Phone: 07-27-2023 14:45-0400 Heart rate 70 /min [facility] Work [facility]: 07-27-2023 14:45-0400 SaO2% (BldA) [Mass fraction] 97 % [facility] Work Phone: 07-27-2023 14:45-0400 Systolic blood pressure 160 mm[Hg] [facility]za [facility] Work Phone: 02-19-2023 13:02-0400 Body mass index (BMI) [Ratio] 24.33 kg/m2 Paty Ortega DISABILITY SPECIALIST Work Phone: [facility] 02-19-2023 13:02-0400 Body weight 72.58 kg Paty Ortega DISABILITY SPECIALIST Work Phone: [facility] 02-19-2023 13:02-0400 Diastolic blood pressure 83 mm[Hg] Paty Ortega DISABILITY SPECIALIST Work Phone: [facility] 02-19-2023 13:02-0400 Heart rate 73 /min Paty Ortega DISABILITY SPECIALIST Work Phone: [facility] 02-19-2023 13:02-0400 Systolic blood pressure 116 mm[Hg] Paty Ortega DISABILITY SPECIALIST Work Phone: [facility] 10-19-2022 10:01-0500 Diastolic blood pressure 69 mm[Hg] Paty Ortega DISABILITY SPECIALIST Work Phone: [facility] 10-19-2022 10:01-0500 Heart rate 89 /min Paty Ortega DISABILITY SPECIALIST Work Phone: [facility] 10-19-2022 10:01-0500 Systolic blood pressure 149 mm[Hg] Paty Ortega DISABILITY SPECIALIST Work Phone: [facility] 10-19-2022 09:56-0500 Body mass index (BMI) [Ratio] 24.04 kg/m2 Paty Ortega DISABILITY SPECIALIST Work Phone: [facility] 10-19-2022 09:56-0500 Body weight 71.71 kg Paty Ortega DISABILITY SPECIALIST Work Phone: [facility] 06-19-2022 10:04-0400 Diastolic blood pressure 90 mm[Hg] Paty Ortega DISABILITY SPECIALIST Work Phone: [facility] 06-19-2022 10:04-0400 Systolic blood pressure 184 mm[Hg] Paty Ortega DISABILITY SPECIALIST Work Phone: [facility] 06-19-2022 09:40-0400 Heart rate 72 /min Paty Ortega DISABILITY SPECIALIST Work Phone: [facility] 06-19-2022 09:36-0400 Body height 172.7 cm Paty Ortega DISABILITY SPECIALIST Work Phone: [facility] 06-19-2022 09:36-0400 Body mass index (BMI) [Ratio] 24.48 kg/m2 Paty Ortega DISABILITY SPECIALIST Work Phone: [facility] 06-19-2022 09:36-0400 Body weight 73.03 kg Paty Ortega DISABILITY SPECIALIST Work Phone: [facility] 02-13-2022 11:13-0400 Diastolic blood pressure 74 mm[Hg] Mary Vargas MD Work Phone: [facility] 02-13-2022 11:13-0400 Systolic blood pressure 138 mm[Hg] Mary Vargas MD Work Phone: [facility] 02-13-2022 11:09-0400 Body height 172.7 cm Mary Vargas MD Work Phone: [facility] 02-13-2022 11:09-0400 Body mass index (BMI) [Ratio] 25.09 kg/m2 Mary Vargas MD Work Phone: [facility] 02-13-2022 11:09-0400 Body weight 74.84 kg Mary Vargas MD Work Phone: [facility] 02-13-2022 11:09-0400 Heart rate 71 /min Mary Vargas MD Work Phone: [facility] 10-13-2021 14:07-0500 Diastolic blood pressure 72 mm[Hg] Paty Ortega DISABILITY SPECIALIST Work Phone: [facility] 10-13-2021 14:07-0500 Heart rate 74 /min Paty Ortega DISABILITY SPECIALIST Work Phone: [facility] 10-13-2021 14:07-0500 Systolic blood pressure 163 mm[Hg] Paty Ortega DISABILITY SPECIALIST Work Phone: [facility] 10-13-2021 13:59-0500 Body mass index (BMI) [Ratio] 24.89 kg/m2 Paty Ortega DISABILITY SPECIALIST Work Phone: [facility] 10-13-2021 13:59-0500 Body weight 74.25 kg Paty Ortega DISABILITY SPECIALIST Work Phone: [facility] 06-20-2021 14:38-0400 Diastolic blood pressure 68 mm[Hg] Paty Ortega DISABILITY SPECIALIST Work Phone: [facility] 06-20-2021 14:38-0400 Heart rate 70 /min Paty Ortega DISABILITY SPECIALIST Work Phone: [facility] 06-20-2021 14:38-0400 Systolic blood pressure 163 mm[Hg] Paty Ortega DISABILITY SPECIALIST Work Phone: [facility] 06-20-2021 14:33-0400 Body height 172.7 cm Paty Ortega DISABILITY SPECIALIST Work Phone: [facility] 06-20-2021 14:33-0400 Body mass index (BMI) [Ratio] 25.32 kg/m2 Paty Ortega DISABILITY SPECIALIST Work Phone: [facility] 06-20-2021 14:33-0400 Body weight 75.52 kg Paty Ortega DISABILITY SPECIALIST Work Phone: [facility] 02-18-2021 15:24-0400 Body height 172.7 cm Mary Vargas MD Work Phone: [facility] 02-18-2021 15:24-0400 Body mass index (BMI) [Ratio] 25.54 kg/m2 Mary Vargas MD Work Phone: [facility] 02-18-2021 15:24-0400 Body weight 76.2 kg Mary Vargas MD Work Phone: [facility] 02-18-2021 15:24-0400 Diastolic blood pressure 70 mm[Hg] Mary Vargas MD Work Phone: [facility] 02-18-2021 15:24-0400 Heart rate 76 /min Mary Vargas MD Work Phone: [facility] 02-18-2021 15:24-0400 Systolic blood pressure 194 mm[Hg] Mary Vargas MD Work Phone: [facility] 10-18-2020 13:36-0500 BMI (Body Mass Index) 25.54 kg/m2 Paty [facility] 10-18-2020 13:36-0500 Body weight 76.2 kg Paty [facility] 10-18-2020 13:36-0500 BP Diastolic 69 mm[Hg] [facility] 10-18-2020 13:36-0500 BP Systolic 163 mm[Hg] Paty [facility] 10-18-2020 13:36-0500 Height 172.7 cm [facility] 10-18-2020 13:36-0500 Pulse (Heart Rate) 72 /min Paty [facility] 06-18-2020 10:01-0400 BMI (Body Mass Index) 25.39 kg/m2 Paty [facility] 06-18-2020 10:01-0400 Body weight 75.75 kg Paty [facility] 06-18-2020 10:01-0400 BP Diastolic 71 mm[Hg] [facility] 06-18-2020 10:01-0400 BP Systolic 172 mm[Hg] [facility] 06-18-2020 10:01-0400 Height 172.7 cm Paty [facility] 06-18-2020 10:01-0400 Pulse (Heart Rate) 72 /min [facility] 11-16-2019 10:40-0500 BMI (Body Mass Index) 25.09 kg/m2 Paty Ortega [facility] 11-16-2019 10:40-0500 Body weight 74.84 kg Paty Ortega [facility] 11-16-2019 10:40-0500 BP Diastolic 68 mm[Hg] Paty [facility] 11-16-2019 10:40-0500 BP Systolic 178 mm[Hg] Paty [facility] 11-16-2019 10:40-0500 Height 172.7 cm Paty [facility] 11-16-2019 10:40-0500 Pulse (Heart Rate) 75 /min Paty Ortega [facility] 07-17-2019 10:48-0400 BMI (Body Mass Index) 25.09 kg/m2 Keeley Patton [facility] 07-17-2019 10:48-0400 Body weight 74.84 kg Keeley Patton [facility] 07-17-2019 10:48-0400 BP Diastolic 69 mm[Hg] Keeley Patton [facility] 07-17-2019 10:48-0400 BP Systolic 152 mm[Hg] Keeley Patton [facility] 07-17-2019 10:48-0400 Height 172.7 cm Keeley Patton [facility] 07-17-2019 10:48-0400 Pulse (Heart Rate) 71 /min Keeley Patton [facility] 03-13-2019 12:07-0400 BMI (Body Mass Index) 25.24 kg/m2 Mary Vargas [facility] 03-13-2019 12:07-0400 Body weight 75.3 kg Mary Vargas [facility] 03-13-2019 12:07-0400 BP Diastolic 67 mm[Hg] Mary Vargas [facility] 03-13-2019 12:07-0400 BP Systolic 160 mm[Hg] Mary Vargas [facility] 03-13-2019 12:07-0400 Height 172.7 cm Mary Vargas [facility] 03-13-2019 12:07-0400 Pulse (Heart Rate) 72 /min Mary Vargas [facility] 11-11-2018 11:08-0500 BMI (Body Mass Index) 26 kg/m2 Keeley Patton [facility] 11-11-2018 11:08-0500 BP Diastolic 74 mm[Hg] Keeley Patton [facility] 11-11-2018 11:08-0500 BP Systolic 172 mm[Hg] Keeley Patton [facility] 11-11-2018 11:08-0500 Height 172.7 cm Keeley Patton [facility] 11-11-2018 11:08-0500 Pulse (Heart Rate) 71 /min Keeley Patton [facility] 11-11-2018 11:08-0500 Weight 77.56 kg Keeley Patton [facility] 07-05-2018 10:05-0400 BMI (Body Mass Index) 25.48 kg/m2 [facility] 07-05-2018 10:05-0400 BP Diastolic 58 mm[Hg] [facility] 07-05-2018 10:05-0400 BP Systolic 130 mm[Hg] [facility] 07-05-2018 10:05-0400 Height 172.7 cm [facility] 07-05-2018 10:05-0400 Pulse (Heart Rate) 84 /min [facility] 07-05-2018 10:05-0400 Weight 76.02 kg [facility] 02-28-2018 10:14-0400 BMI (Body Mass Index) 26.15 kg/m2 [facility] 02-28-2018 10:14-0400 BP Diastolic 64 mm[Hg] [facility] 02-28-2018 10:14-0400 BP Systolic 154 mm[Hg] [facility] 02-28-2018 10:14-0400 Height 172.7 cm [facility] 02-28-2018 10:14-0400 Pulse (Heart Rate) 76 /min [facility] 02-28-2018 10:14-0400 Weight 78.02 kg [facility] 10-29-2017 10:08-0500 BMI (Body Mass Index) 25.24 kg/m2 Mary Vargas [facility] Work Phone: 10-29-2017 10:08-0500 BP Diastolic 64 mm[Hg] Mary Vargas [facility] Work Phone: 10-29-2017 10:08-0500 BP Systolic 142 mm[Hg] Mary Vargas [facility] Work Phone: 10-29-2017 10:08-0500 Height 172.7 cm Mary Vargas [facility] Work Phone: 10-29-2017 10:08-0500 Pulse (Heart Rate) 72 /min Mary Vargas [facility] Work Phone: 10-29-2017 10:08-0500 Weight 75.3 kg Mary Vargas [facility] Work Phone: 06-17-2017 11:04-0400 BMI (Body Mass Index) 24.78 kg/m2 Ya Parker [facility] Work Phone: 06-17-2017 11:04-0400 BP Diastolic 62 mm[Hg] Ya Parker [facility] Work Phone: 06-17-2017 11:04-0400 BP Systolic 148 mm[Hg] Ya Parker [facility] Work Phone: 06-17-2017 11:04-0400 Height 172.7 cm Ya Parker [facility] Work Phone: 06-17-2017 11:04-0400 Pulse (Heart Rate) 64 /min Ya Parker [facility] Work Phone: 06-17-2017 11:04-0400 Weight 73.94 kg Ya Parker [facility] Work Phone: Encounters Encounter Date Encounter Type Care Provider Facility Start: 04-16-2025 End: 04-17-2025 Refill Ej Guidry MA [facility] Comment on above: Medication Refill Type 1 diabetes suzie itus with diabetic neuropathy (HCC) Start: 04-12-2025 ambulatory RYLEY JETER [facility] Ambulatory Start: 04-09-2025 Non-patient / Non-visit Dr. Kesha Arnold MD [facility] Work Phone: Start: 04-08-2025 Non-patient / Non-visit Dr. Cassandra Moore MD [facility] Work Phone: Start: 04-07-2025 Non-patient / Non-visit Dr. Cassandra Moore MD [facility] Work Phone: Start: 04-06-2025 Non-patient / Non-visit Dr. Cassandra Moore MD [facility] Work Phone: Start: 04-06-2025 Non-patient / Non-visit [facility]. Rosetta URIBE [facility] Start: 04-06-2025 Non-patient / Non-visit Dr. Landry Auguts own [facility] Start: 04-05-2025 Non-patient / Non-visit [facility] Rosetta URIBE [facility] Start: 04-05-2025 Non-patient / Non-visit Dr. Kesha Martin MD [facility] Start: 04-05-2025 Non-patient / Non-visit Dr. Kesha Arnold MD [facility] Work Phone: Start: 04-05-2025 Non-patient / Non-visit Dr. Landry August own [facility] Start: 04-04-2025 Non-patient / Non-visit Dr. Kesha Arnold MD [facility] Work Phone: Start: 04-03-2025 ambulatory Koffi Gibbs [facility] Start: 04-03-2025 Non-patient / Non-visit Dr. Koffi langley MD [facility] Start: 04-03-[facility] Start: 04-03-2025 End: 04-10-2025 Evaluation and management of inpatient Dr. Dyana Hwang MD -Intensive Care Unit Work Phone: Start: 03-29-2025 End: 03-29-2025 ambulatory WOO SMALL [facility] Start: 03-27-2025 End: 03-27-2025 Follow-up encounter Woo Small MD Work Phone: [facility] Comment on above: Basic metabolic pane l Start: 03-12-2025 End: 03-12-2025 Office outpatient visit 25 minutes Paty Ortega DISABILITY SPECIALIST Work Phone: [facility] [place] Comment on above: Type 1 diabetes suzie itus with diabetic neuropathy (HCC) (Primary Dx); Pure hypercholesterolemia; Essential hypertension Start: 03-12-2025 End: 03-12-2025 ambulatory PATY ORTEGA [facility] Ambulatory Start: 03-09-2025 End: 03-09-2025 Office outpatient visit 25 minutes Woo Small MD Work Phone: [facility] Comment on above: Coronary artery dise ase involving [place] coronary artery of [place] heart without angina pectoris (Primary Dx); NSTEMI (non-ST elevated myocardial infarction) (HCC); Hospital discharge follow-up Start: 03-09-2025 End: 03-09-2025 ambulatory RYLEY JETER [facility] Ambulatory Start: 02-28-2025 End: 03-05-2025 Evaluation and management of inpatient [facility] Start: 02-26-2025 End: 02-26-2025 Office outpatient visit 15 minutes Ayanna Albert DO Work Phone: [facility] Comment on above: 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); Essential hypertension; Pure hypercholesterolemia; Type 1 diabetes mellitus with diabetic neuropathy Start: 02-26-2025 End: 02-26-2025 ambulatory AYANNA M [facility] Ambulatory Start: 02-16-2025 End: 02-16-2025 Refill Paty Ortega DISABILITY SPECIALIST Work Phone: [facility] Comment on above: Type 1 diabetes suzie itus with diabetic neuropathy (HCC) (Primary Dx) Start: 02-14-2025 End: 02-14-2025 Documentation procedure Ej Guidry MA [facility] Comment on above: Letter refaxed Start: 02-12-2025 End: 02-13-2025 Orders Only Paty Ortega CNP Work Phone: [facility] Start: 02-09-2025 [facility] Start: 02-06-2025 End: 02-06-2025 ambulatory Ryley Jeter MD Work Phone: [facility] Work Phone: Start: 02-06-2025 End: 02-06-[address] Kerwin Tamayo MD -Laboratory, [facility] Start: 02-06-2025 End: 02-06-2025 ambulatory Kerwin Tamayo Facility:[facility] Start: 01-01-2025 End: 01-01-2025 Refill Paty Ortega DISABILITY SPECIALIST Work Phone: [facility] Comment on above: Type 1 diabetes suzie itus with diabetic neuropathy (HCC) (Primary Dx) Start: 12-08-2024 End: 12-08-2024 Refill Paty Ortega DISABILITY SPECIALIST Work Phone: [facility] Comment on above: Type 1 diabetes suzie itus with diabetic neuropathy (HCC) Start: 11-20-2024 End: 11-20-2024 Refill Paty Ortega DISABILITY SPECIALIST Work Phone: [facility] Start: 11-14-2024 End: 11-14-2024 Office outpatient visit 25 minutes Woo Small MD Work Phone: [facility] Comment on above: Coronary artery dise ase involving [place] coronary artery of [place] heart without angina pectoris (Primary Dx); Claudication in peripheral vascular disease; Bilateral carotid artery stenosis Start: 11-14-2024 End: 11-14-2024 ambulatory [facility] Ambulatory Start: 11-13-2024 End: 11-13-2024 Office outpatient visit 25 minutes Paty Ortega DISABILITY SPECIALIST Work Phone: [facility] [place] Comment on above: Type 1 diabetes suzie itus with diabetic neuropathy (HCC) (Primary Dx); Pure hypercholesterolemia; Essential hypertension Start: 11-13-2024 End: 11-13-2024 ambulatory [facility] Ambulatory Start: 11-09-2024 End: 11-09-2024 Office outpatient new 60 minutes Sandi Phan PA-C Work Phone: [facility] Comment on above: Bilateral carotid ar radha stenosis Start: 11-09-2024 End: 11-09-2024 ambulatory SANDI PHAN [facility] Ambulatory Start: 11-07-2024 End: 11-07-2024 Office outpatient new 45 minutes Brock Groves MD Work Phone: [facility] Comment on above: Coronary artery dise ase involving [place] coronary artery of [place] heart without angina pectoris (Primary Dx) Start: 11-07-2024 End: 11-11-2024 Orders Only Sandi Phan PA-C Work Phone: [facility] Comment on above: Bilateral carotid ar radha stenosis (Primary Dx) Start: 11-06-2024 End: 11-07-2024 Refill Paty Ortega CNP Work Phone: [facility] Comment on above: Type 1 diabetes suzie itus with diabetic neuropathy (HCC) (Primary Dx) Start: 10-27-2024 End: 10-28-2024 ambulatory [facility] Start: 10-27-2024 End: 10-28-2024 Emergency department patient visit Elías Rodriguez MD Work Phone: [facility] Start: 10-23-2024 End: 10-23-2024 Chart abstracting Ej Guidry MA [facility] Comment on above: Medication Refill Start: 10-18-2024 End: 10-18-2024 Office outpatient visit 25 minutes Woo Small MD Work Phone: [facility] Comment on above: Claudication in sheyla pheral vascular disease (HCC) (Primary Dx); Encounter for examination of blood pressure with abnormal findings; 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; Congestive heart failure, unspecified HF chronicity, unspecified heart failure type (HCC); Hypertensive emergency Start: 10-18-2024 End: 10-18-2024 Patient encounter status Woo Small MD Work Phone: [facility] Start: 10-18-2024 End: 10-18-2024 ambulatory WOO SMALL [facility] Ambulatory Start: 10-18-2024 End: 10-18-2024 Encounter for examination of blood pressure with abnormal findings WOO SMALL [facility] Ambulatory Start: 10-06-2024 End: 10-06-2024 Refill Luisa Easley RN [facility] Start: 10-04-2024 ambulatory EJ GUIDRY [facility] Ambulatory Start: 09-28-2024 ambulatory [facility] Start: 09-26-2024 End: 09-26-2024 Refill Paty Ortega CNP Work Phone: [facility] Comment on above: Type 1 diabetes suzie itus with diabetic neuropathy (HCC) (Primary Dx) Start: 09-21-2024 End: 09-21-2024 ambulatory Ryley Jeter Facility:[facility] Start: 09-13-2024 ambulatory Malika Corbin [facility] Start: 09-12-2024 ambulatory Bernardo Susan [facility] Start: 09-12-2024 End: 09-14-2024 Evaluation and management of inpatient Ryley [facility] Facility:[facility] Start: 09-12-2024 ambulatory Young Koroma [facility] Start: 08-29-2024 End: 08-29-2024 Office outpatient visit 15 minutes Ayanna Albert DO Work Phone: [facility] Comment on above: 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); Essential hypertension; Type 1 diabetes mellitus with diabetic neuropathy Start: 08-29-2024 End: 08-29-2024 ambulatory AYANNA [facility] Ambulatory Start: 07-21-2024 End: 07-21-2024 Office outpatient visit 25 minutes Paty Ortega CNP Work Phone: [facility] [place] Comment on above: Type 1 diabetes suzie itus with diabetic neuropathy (HCC) (Primary Dx); Pure hypercholesterolemia; Essential hypertension Start: 07-21-2024 End: 07-21-2024 ambulatory RYLEY JETER [facility] Ambulatory Start: 07-07-2024 End: 07-07-2024 ambulatory NO ASSIGNED PCP GENERIC PROVIDER [facility] Start: 05-17-2024 End: 05-17-2024 ambulatory Ryley Jeter Facility:[facility] Start: 04-24-2024 End: 04-24-2024 Office outpatient visit 25 minutes Woo Small MD Work Phone: [facility] Comment on above: 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 (Primary Dx); Primary hypertension; Dyslipidemia Start: 04-24-2024 End: 04-24-2024 ambulatory RYLEY JETER [facility] Ambulatory Start: 03-28-2024 Refill Ej Guidry MA [facility] Comment on above: Medication Refill Start: 03-06-2024 Refill Paty Ortega CNP Work Phone: [facility] [place] Comment on above: Type 1 diabetes suzie itus with diabetic neuropathy (HCC) Start: 02-24-2024 End: 02-24-2024 Office outpatient visit 15 minutes Madie BERMAN DNP Work Phone: [facility] Comment on above: 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); Acute on chronic systolic (congestive) heart failure (Multi); Type 1 diabetes mellitus with diabetic neuropathy (Multi) Start: 02-18-2024 End: 02-18-2024 Office outpatient visit 25 minutes Paty Ortega CNP Work Phone: [facility] [place] Comment on above: Type 1 diabetes suzie itus with diabetic neuropathy (HCC) (Primary Dx); Pure hypercholesterolemia; Essential hypertension Start: 02-07-2024 End: 02-07-2024 ambulatory NO ASSIGNED PCP GENERIC PROVIDER [facility] Start: 01-17-2024 Refill Ej Guidry MA [facility] Comment on above: Medication Refill Start: 01-14-2024 End: 01-14-2024 Office outpatient visit 15 minutes Aylin Lacy DISABILITY SPECIALIST Work Phone: [facility] Comment on above: Cardiovascular stres s test abnormal (Primary Dx); Dyslipidemia; 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; Primary hypertension Start: 12-29-2023 Refill Ej Guidry MA [facility] Comment on above: Medication Refill Start: 12-15-2023 End: 12-15-2023 [facility] Work Phone: Start: 12-15-2023 End: 12-15-2023 Patient encounter procedure [facility] Work [facility]: Start: 11-29-2023 End: 11-29-2023 Subsequent hospital visit by physician Jovan Faithv1 [facility] Comment on above: Arrived Start: 11-27-2023 End: 12-01-2023 Evaluation and management of inpatient [facility] Work Phone: [facility] Start: 11-26-2023 End: 11-27-2023 Emergency department patient visit Ger Bansal DO Work Phone: [facility] Comment on above: NSTEMI (non-ST eleva ch[place] myocardial infarction) (CMS/HCC) (Primary Dx); MADONNA (acute kidney injury) (CMS/HCC); 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); Type 1 diabetes mellitus with other specified complication (CMS/HCC) Start: 11-25-2023 End: 11-25-2023 [facility] Work Phone: Start: 11-25-2023 End: 11-25-2023 Patient encounter procedure [facility] Work Phone: Start: 11-17-2023 End: 11-17-2023 [facility] Work Phone: Start: 11-17-2023 End: 11-17-2023 Patient encounter procedure [facility] Work Phone: Start: 11-02-2023 Orders Only Mary Ramirez MD Work Phone: [facility] Start: 10-22-2023 End: 10-22-2023 Patient encounter procedure [facility], [place] [place] Start: 10-21-2023 End: 10-21-2023 Office outpatient new 45 minutes Mary Vargas MD Work Phone: [facility] Comment on above: 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 (Primary Dx); Dyslipidemia; Congestive heart failure, unspecified HF chronicity, unspecified heart failure type (HCC) Start: 10-11-2023 End: 10-11-2023 Subsequent hospital visit by physician Jovan Paul [facility] Start: 10-11-2023 Critical care ill/in jured patient init 30-74 min Aury Rouse DO Work Phone: [facility] Work Phone: Start: 10-11-2023 End: 10-13-2023 Evaluation and management of inpatient Praful Pineda MD Work Phone: [facility] Comment on above: COVID-19 [...] minutes Mary Vargas MD Work Phone: [facility] [place] Comment on above: 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 Ayanna Albert Facility:[id number] Start: 07-30-2023 Refill Patyeduar Ortega DISABILITY SPECIALIST Work Phone: [facility] [place] Start: 07-29-2023 Patient encounter procedure Da vid Sukhi Tabaresk Work Phone: [facility] [place] Work Phone: Start: 07-27-[address] Ayanna Albret Facility:[id number] Start: 02-19-2023 End: 02-19-2023 Office outpatient visit 25 minutes Patyeduar Ortega DISABILITY SPECIALIST Work Phone: [facility] [place] Comment on above: Type 1 diabetes suzie itus with diabetic neuropathy (HCC) Start: 01-25-2023 Patient encounter procedure Da vid Sukhi Mirza Work Phone: [facility] [place] Work Phone: Start: 01-25-[address] Nancy Mirza Facility:[id number] Start: 01-18-2023 Patient encounter procedure Da vid Sukhi Mirza Work Phone: [facility] [place] Work Phone: Start: 01-18-[address] Nancy Mirza Facility:[id number] Start: 01-15-2023 Patient encounter procedure Da vid Sukhi Mirza Work Phone: [facility] [place] Work Phone: Start: 01-15-2023 [email or web address], Provider : Chaya Chan, Status: Pen, Time: 10:00 AM Nancy Mirza Work Phone: [facility] [place] Work Phone: Start: 01-15-[address] Nancy Mirza Facility:[id number] Start: 01-13-2023 Patient encounter procedure Da vid J Rayshawnk Work Phone: [facility] [place] Work Phone: Start: 01-13-[address] Nancy Mirza Facility:[id number] Start: 01-08-2023 [email or web address], Provider : Chaya Chan, Status: Pen, Time: 10:00 AM Nancy Mirza Work Phone: [facility] [place] Work Phone: Start: 01-08-[address] Nancy Mirza Facility:[id number] Start: 01-06-[address] Nancy Mirza Facility:[id number] Start: 01-06-2023 Patient encounter procedure Da jovani Mirza Work Phone: [facility] [place] Work Phone: Start: 01-01-[address] Nancy Mirza Facility:[id number] Start: 01-01-2023 Patient encounter procedure Da jovani Naireleazar Work Phone: [facility] [place] Work Phone: Start: 12-31-2022 Refsander Ortega CNP Work Phone: [facility] Comment on above: Type 1 diabetes suzie itus with diabetic neuropathy (HCC) (Primary Dx) Start: 12-30-[address] Nancy Mirza Facility:[id number] Start: 12-25-[address] Nancy Mirza Facility:[id number] Start: 12-25-2022 Patient encounter procedure Da jovani Mirza Work Phone: [facility] [place] Work Phone: Start: 12-21-2022 Patient encounter procedure Da ludwigd Sukhi Mirza Work Phone: [facility] [place] Work Phone: Start: 12-21-[address] Nancy Mirza Facility:[id number] Start: 10-19-2022 End: 10-19-2022 Office outpatient visit 25 minutes Paty Ortega DISABILITY SPECIALIST Work Phone: [facility] [place] Comment on above: Type 1 diabetes suzie itus with diabetic neuropathy (HCC) (Primary Dx); Essential hypertension; Pure hypercholesterolemia; Bilateral carotid artery stenosis; Prostate cancer screening Start: 06-19-2022 End: 06-19-2022 Office outpatient visit 25 minutes Paty Ortega DISABILITY SPECIALIST Work Phone: [facility] [place] Comment on above: Type 1 diabetes suzie itus with diabetic neuropathy (HCC) (Primary Dx); Essential hypertension; Elevated PSA Start: 02-13-2022 End: 02-13-2022 Office outpatient visit 25 minutes Mary Vargas MD Work Phone: [facility] [place] Comment on above: Type 1 diabetes suzie itus with diabetic neuropathy (HCC) (Primary Dx); 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); Essential hypertension; Bilateral carotid artery stenosis; Prostate cancer screening Start: 10-13-2021 End: 10-13-2021 Office outpatient visit 25 minutes Paty Ortega DISABILITY SPECIALIST Work Phone: [facility] [place] Comment on above: Type 1 diabetes suzie itus with diabetic neuropathy (HCC) (Primary Dx); Essential hypertension; Pure hypercholesterolemia Start: 10-08-2021 Refill Paty Ortega DISABILITY SPECIALIST Work Phone: [facility] Start: 06-20-2021 End: 06-20-2021 Office outpatient visit 25 minutes Paty Ortega DISABILITY SPECIALIST Work Phone: [facility] [place] Comment on above: Type 1 diabetes suzie itus with diabetic polyneuropathy (HCC) (Primary Dx); Essential hypertension; Pure hypercholesterolemia Start: 02-26-2021 End: 02-26-2021 Subsequent hospital visit by physician Mary Vargas MD Work Phone: [facility] Comment on above: Arrived Start: 02-18-2021 End: 02-18-2021 Office outpatient visit 25 minutes Mary Vargas MD Work Phone: [facility] Comment on above: Type 1 diabetes suzie itus with diabetic polyneuropathy (HCC) (Primary Dx); Bilateral carotid artery stenosis; Essential hypertension; Type 1 diabetes mellitus with diabetic neuropathy (HCC) Start: 02-18-2021 End: 02-18-2021 Refill Mary Vargas MD Work Phone: [facility] Start: 11-22-2020 End: 11-22-2020 Orders Only Ya Nicolas Work Phone: [facility] Start: 10-18-2020 End: 10-18-2020 Office outpatient visit 25 minutes Paty Ortega Work Phone: [facility] Comment on above: Type 1 diabetes suzie itus with diabetic polyneuropathy (HCC) (Primary Dx); Type 1 diabetes mellitus with diabetic neuropathy (HCC); Essential hypertension; Pure hypercholesterolemia Start: 06-18-2020 End: 06-18-2020 Office outpatient visit 25 minutes Paty Ortega Work Phone: [facility] Comment on above: Type 1 diabetes suzie itus with diabetic polyneuropathy (HCC) (Primary Dx); Type 1 diabetes mellitus with diabetic neuropathy (HCC); Essential hypertension; Pure hypercholesterolemia Start: 11-16-2019 End: 11-16-2019 Office outpatient visit 25 minutes Paty Ortega Work Phone: [facility] Comment on above: Type I diabetes suzie itus with neurological manifestations, uncontrolled (HCC) (Primary Dx); Type 1 diabetes mellitus with diabetic polyneuropathy (HCC); Pure hypercholesterolemia Start: 07-17-2019 End: 07-17-2019 Office outpatient visit 25 minutes Keeley Patton Work Phone: [facility] Comment on above: Type 1 diabetes suzie itus with diabetic polyneuropathy (HCC) (Primary Dx); Essential hypertension; Pure hypercholesterolemia Start: 03-13-2019 End: 03-13-2019 Office outpatient visit 25 minutes Mary Vargas Work Phone: [facility] Comment on above: 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) (Primary Dx); Pure hypercholesterolemia; Essential hypertension; Type 1 diabetes mellitus with diabetic neuropathy (HCC); Prostate cancer screening Start: 11-11-2018 End: 11-11-2018 Office outpatient visit 15 minutes Keeley Patton Work Phone: [facility] Comment on above: Type 1 diabetes suzie itus with diabetic neuropathy (HCC) (Primary Dx); Essential hypertension Start: 07-05-2018 End: 07-05-2018 Office outpatient visit 25 minutes Paty Stewart Ortega Work Phone: [facility] Comment on above: Type 1 diabetes suzie itus with diabetic neuropathy (HCC) (Primary Dx); Essential hypertension; Pure hypercholesterolemia Start: 02-28-2018 End: 02-28-2018 Office/outpatient visit, est, level 3 Alexandra Larsen Chon Work Phone: [facility] Start: 02-09-2018 Ambulatory Nancy Mirza Facilit y:[place] Start: 02-09-2018 End: 02-09-2018 Ambulatory Nancy Mirza Work Phone: [facility] Start: 10-29-2017 Office/outpatient vi sit, est, level 4 Mary Vargas Work Phone: [facility] Start: 06-17-2017 End: 06-17-2017 Office outpatient visit 25 minutes Ya Parker Work Phone: [facility] Comment on above: Type [...] colitis,primary sclerosing cholangitis and autoimmune hepatitis.Performed at: [address] [id number] Director: Todd Anderson PhD, Phone: [phone] Start: 04-06-2025 Serum inorganic phos phate measurement [...] or Pulmonary Embolism (PE)CRITICAL VALUE CALLED TO [id number] Victor Hugo Santamaria.RESULTS READ BACK BY SAME. Start: 04-03-2025 Estimated creatinine clearance Ryley Jeter MD Work Phone: Start: 02-12-2025 Comprehensive metabolic panel Paty Ortega [facility] Work Phone: Start: 02-12-2025 Lipid panel Paty Ortega [facility] Work Phone: Start: 02-12-2025 Lipid 1996 panel [...] 12-01-2023 End: 12-01-2023 Glucose measurement Generic [facility] Work Phone: Start: 12-01-2023 Basic metabolic pane l calcium total Norma Tania Monson DISABILITY SPECIALIST Work Phone: Start: 11-30-2023 [facility] Work Phone: Start: 11-30-2023 Glucose measurement Gen [facility] Work Phone: Start: 11-30-2023 Echo tthrc r-t 2d w/ wom-mode compl spec&colr d Norma Tania Monson DISABILITY SPECIALIST Work Phone: Start: 11-30-2023 Basic metabolic pane l calcium total Norma Tania Monson DISABILITY SPECIALIST Work Phone: Start: 11-29-2023 Ct thorax w/o contra st material Alfred P Ezike DISABILITY SPECIALIST Work Phone: Start: 11-29-2023 Thromboplastin time partial plasma/whole blood Mary Vargas MD Work Phone: Start: 11-29-2023 Glucose measurement Gen [facility] Work Phone: Start: 11-29-2023 Ecg routine ecg w/le ast 12 lds trcg only w/o i&r Ger W Bansal DO Work Phone: Start: 11-29-2023 Glucose measurement Gen [facility] Work Phone: Start: 11-29-2023 Thromboplastin time partial plasma/whole blood Mary Vargas MD Work Phone: Start: 11-29-2023 Basic metabolic pane l calcium total Norma Tania Monson DISABILITY SPECIALIST Work Phone: Start: 11-28-2023 Glucose measurement Gen [facility] Work Phone: Start: 11-28-2023 Glucose measurement Gen [facility] Work Phone: Start: 11-28-2023 Glucose measurement Gen [facility] Work Phone: Start: 11-28-2023 Glucose measurement Gen [facility] Work Phone: Start: 11-28-2023 Basic metabolic pane l calcium total Norma Tania Juanjo DISABILITY SPECIALIST Work Phone: Start: 11-28-2023 Glucose measurement Gen [facility] Work Phone: Start: 11-28-2023 Basic metabolic pane l calcium total Norma Tania Monson DISABILITY SPECIALIST Work Phone: Start: 11-27-2023 End: 11-27-2023 Basic metabolic panel calcium total Norma Tania Juanjo DISABILITY SPECIALIST Work Phone: Start: 11-27-2023 C-reactive protein Mehdi Pabon MD Work Phone: Start: 11-27-2023 Glucose measurement Gen [facility] Work Phone: Start: 11-27-2023 Glucose measurement Gen [facility] Work Phone: Start: 11-27-2023 [facility]ucose [facility] Work Phone: Start: 11-27-2023 Basic metabolic pane l calcium total Norma Tania Monson DISABILITY SPECIALIST Work Phone: Start: 11-27-2023 [facility]ucose [facility] Work Phone: Start: 11-27-2023 Iaad ia clostridium difficile toxin Norma Tania Juanjo DISABILITY SPECIALIST Work Phone: Start: 11-27-2023 Hemoglobin glycosylated a1c Mary Vargas MD Work Phone: Start: 11-27-2023 Glucose measurement Gen [facility] Work Phone: Start: 11-27-2023 Basic metabolic pane l calcium total Norma Tania Monson DISABILITY SPECIALIST Work Phone: Start: 11-27-2023 Glucose measurement Gen [facility] Work Phone: Start: 11-27-2023 Glucose measurement Gen [facility] Work Phone: Start: 11-27-2023 End: 11-27-2023 Glucose measurement Generic [facility] Work Phone: Start: 11-27-2023 Basic metabolic pane l calcium total Norma Tania Juanjo DISABILITY SPECIALIST Work Phone: Start: 11-27-2023 Glucose measurement Gen [facility] Work Phone: Start: 11-27-2023 Glucose measurement Gen [facility] Work Phone: Start: 11-27-2023 Glucose measurement Gen [facility] Work Phone: Start: 11-27-2023 Basic metabolic pane l calcium total Norma Tania Monson DISABILITY SPECIALIST Work Phone: Start: 11-27-2023 Influenza virus A an d B RNA and SARS-CoV-2 (COVID-19) N gene panel - Respiratory specimen by ALICE with probe detection Norma Geiger CNP Work Phone: Start: 11-27-2023 Polymerase chain ty ction analysis Norma Geiger CNP Work Phone: Start: 11-27-2023 End: 11-27-2023 Glucose measurement Generic [facility] Work Phone: Start: 11-27-2023 Assay of troponin quantitative Norma Geiger CNP Work Phone: Start: 11-27-2023 Gases blood ph direc t nikkie xcpt pulse oximitry Generic [facility] Work Phone: Start: 11-27-2023 End: 11-27-2023 Glucose measurement Generic [facility] Work Phone: Start: 11-27-2023 Radiologic exam ches t single view Norma Geiger CNP Work Phone: Start: 11-27-2023 End: 11-27-2023 Gases blood ph direct nikkie xcpt pulse oximitry Generic [facility] Work Phone: Start: 11-27-2023 Ecg routine ecg w/le ast 12 lds trcg only w/o i&r Norma Geiger CNP Work Phone: Start: 11-27-2023 OBTAIN ARTERIAL BLOO D GASES AND PERFORM Norma Geiger DISABILITY SPECIALIST Work Phone: Start: 11-27-2023 OBTAIN VENOUS BLOOD GASES AND PERFORM Norma Geiger CNP Work Phone: Start: 11-27-2023 End: 11-27-2023 Basic metabolic panel calcium total Norma Geiger CNP Work Phone: Start: 11-27-2023 End: 11-27-2023 Culture bacterial blood aerobic w/id isolates Norma Geiger DISABILITY SPECIALIST Work Phone: Start: 11-27-2023 Lipid panel Norma Tavares DISABILITY SPECIALIST Work Phone: Start: 11-27-2023 End: 11-27-2023 Glucose measurement Generic [facility] Work Phone: Start: 11-27-2023 Thyrotropin [Units/v olume] in Serum or Plasma [facility] Start: 11-27-2023 Assay of troponin quantitative [...] Work Phone: Start: 10-12-2023 LIGHT BLUE TOP Praufl Pineda MD Work Phone: Start: 10-12-2023 SST [...] 3 comp foot exam completed Paty Ortega DISABILITY SPECIALIST Work Phone: Start: 02-19-2023 3 comp foot exam completed Paty Ortega DISABILITY SPECIALIST Work Phone: Start: 02-12-2023 Lipid 1996 panel - S laurence or Plasma Ayanna Albert DO Work Phone: Start: 02-12-2023 Thyrotropin [Units/v olume] in Serum or Plasma Ayanna Albert DO Work Phone: Start: 10-19-2022 3 comp foot exam completed Paty Ortega DISABILITY SPECIALIST Work Phone: Start: 06-19-2022 3 comp foot exam completed Paty Ortega DISABILITY SPECIALIST Work Phone: Start: 02-13-2022 3 comp foot exam completed Mary Vargas MD Work Phone: Start: 10-13-2021 3 comp foot exam completed Paty Jordan DISABILITY SPECIALIST Work Phone: Start: 06-20-2021 3 comp foot exam completed Paty Ortega DISABILITY SPECIALIST Work Phone: Start: 06-11-2021 Microalbumin [Mass/v olume] in Urine by Test strip Patyeduar Ortega DISABILITY SPECIALIST Work Phone: Start: 02-26-2021 Duplex scan extracra nial art compl bi study Mary Vargas MD Work Phone: Start: 02-18-2021 3 comp foot exam completed Mary Vargas MD Work Phone: Start: 10-18-2020 3 comp foot exam completed Paty Ortega Start: 10-14-2020 Ophthalmic examinati on and evaluation Paty Ortega DISABILITY SPECIALIST Work Phone: Start: 10-03-2020 Microalbumin [Mass/v olume] [...] EJACULATION WITHIN 48 HRS. [facility] VOL24,NO.2, , PG.339 Performed By: #### [id number] #### [place] [address] Start: 03-13-2019 3 comp foot exam completed Keeley Patton Start: 11-11-2018 3 comp foot exam completed Mary Vargas Start: 07-05-2018 3 comp foot exam completed Keeley Patton Start: 02-15-2017 3 comp foot exam completed Ya Parker Plan of Treatment Date Care Activity Detail Author Start: 02-12-2026 Creatinine measurement Creatinine Level [facility] Start: 02-12-2026 Lipid panel Lipid Panel [facility] Start: 02-12-2026 Potassium measurement Potassium Level [facility] Start: 02-12-2026 Thyroid stimulating hormone measurement TSH Level [facility] Start: 02-12-2026 Urine screening for protein Diabetes: Urine Protein Screening [facility] Start: 11-13-2025 Diabetic foot examination Diabetic Foot Exam [facility] Start: 10-27-2025 Screening for malignant neoplasm of lung Low-dose CT Lung Cancer Screen [facility] Start: 09-23-2025 eGFR Diabetes eGFR Diabetes [facility] Start: 09-05-2025 Urine screening for protein eGFR Diabetes [facility] Start: 08-14-2025 Hemoglobin A1c measurement A1C [facility] Start: 08-14-2025 Urine screening for protein eGFR Diabetes [facility] Start: 07-13-2025 End: 07-13-2025 Patient encounter procedure 07/13/2025 1:00 PM EDT Office Visit [facility] [place] [address] [place] [address] Paty Ortega CNP [address] [place] [address] [facility] [place] Start: 07-07-2025 Creatinine measurement Creatinine Level [facility] Start: 07-07-2025 Potassium measurement Potassium Level [facility] Start: 07-07-2025 Thyroid stimulating hormone measurement TSH Level [facility] Start: 07-02-2025 Influenza vaccination Influenza Vaccine (Season Ended) [facility] Start: 06-12-2025 End: 06-12-2025 Patient encounter procedure 06/12/2025 9:20 AM EDT Office Visit [facility] [address] [place] [phone] Woo Small MD [address] [place] [address] [facility] Start: 05-30-2025 Hemoglobin A1c measurement A1C [facility] Start: 05-17-2025 End: 05-17-2025 Patient encounter procedure [facility] Start: 05-14-2025 Hemoglobin A1c measurement [facility] Start: 05-14-2025 End: 05-14-2025 Patient encounter procedure 05/14/2025 11:20 AM EDT Office Visit [facility] [address] [place] [address] Woo Small MD [address] [place], [place] [address] [address] [facility] Start: 04-28-2025 Urine screening for protein eGFR Diabetes [facility] Start: 04-18-2025 Urine screening for protein eGFR Diabetes [facility] Start: 04-10-2025 Patient discharge [facility] Start: 04-08-2025 Administration of blood product [facility] Start: 04-07-2025 Application of intermittent pneumatic compression device [facility] Start: 04-07-2025 Hemodialysis care [facility] Start: 04-07-2025 End: 04-07-2025 [facility] Start: 04-07-2025 [facility] Start: 04-06-2025 [facility] Start: 04-06-2025 Care of hemodialysis equipment [facility] Start: 04-06-2025 Hemodialysis care [facility] Start: 04-06-2025 [facility] Start: 04-05-2025 End: 04-06-2025 [facility] Start: 04-05-2025 Care of hemodialysis equipment [facility] Start: 04-05-2025 Dialysis care [facility] Start: 04-05-2025 Referral to general surgeon [facility] Start: 04-05-2025 Continuous pulse oximetry [facility] Start: 04-05-2025 Dual pressure spontaneous ventilation support [facility] Start: 04-04-2025 End: 04-04-2025 [facility] Start: 04-04-2025 Care regimes management [facility] Start: 04-04-2025 Notification of physician [facility] Start: 04-04-2025 Referral to electroplating worker [facility] Start: 04-04-2025 End: 04-05-2025 [facility] Start: 04-04-2025 [facility] Start: 04-03-2025 Referral to beauty school instructor [facility] Start: 04-03-2025 Bacteria identified in Blood by Culture Blood Culture [facility] Start: 04-03-2025 Respiratory Panel (PCR) Respiratory Panel (PCR) [facility] Start: 04-03-2025 Following clinical pathway protocol [facility] Start: 04-03-2025 Lab findings surveillance [facility] Start: 04-03-2025 End: 04-03-2025 Care planning and problem solving actions [facility] Start: 04-03-2025 End: 04-03-2025 [facility] Start: 04-03-2025 End: 04-03-2025 Following clinical pathway protocol [facility] Start: 04-03-2025 Application of elastic bandage [facility] Start: 04-03-2025 Assessment of risk of venous thromboembolism [facility] Start: 04-03-2025 Bacteria identified in Sputum by Culture [facility] Start: 04-03-2025 Care regimes management [facility] Start: 04-03-2025 Consultation [facility] Start: 04-03-2025 Elevation of affected extremity [facility] Start: 04-03-2025 Fall prevention [facility] Start: 04-03-2025 Incentive spirometry [facility] Start: 04-03-2025 Inhalation therapy procedure [facility] Start: 04-03-2025 Insertion of catheter into peripheral vein [facility] Start: 04-03-2025 Introduction of urinary catheter [facility] Start: 04-03-2025 Measuring intake and output [facility] Start: 04-03-2025 Notification of physician [facility] Start: 04-03-2025 Oxygen therapy [facility] Start: 04-03-2025 Patient education [facility] Start: 04-03-2025 Patient referral to dietitian [facility] Start: 04-03-2025 Providing care according to standard [facility] Start: 04-03-2025 Provision of activity privileges [facility] Start: 04-03-2025 Referral to occupational therapist [facility] Start: 04-03-2025 Referral to service [facility] Start: 04-03-2025 Tobacco use cessation education [facility] Start: 04-03-2025 Vital signs measurements [facility] Start: 04-03-2025 Bacterial nucleic acid assay [facility] Start: 04-03-2025 Thyroid stimulating hormone measurement [facility] Start: 04-03-2025 Streptococcus pneumoniae antigen assay [facility] Start: 04-03-2025 Verification routine [facility] Start: 04-03-2025 Admission procedure [facility] Start: 04-03-2025 [facility] Start: 04-03-2025 End: 04-03-2025 [facility] Start: 04-03-2025 Continuous pulse oximetry [facility] Start: 04-03-2025 Dual pressure spontaneous ventilation support [facility] Start: 03-23-2025 Medicare Annual Wellness Visit Medicare Annual Wellness Visit (AWV) [facility] Start: 03-12-2025 End: 03-12-2025 Patient encounter procedure 03/12/2025 2:00 PM EDT Office Visit [facility] [place] [address] [place] [address] Paty Ortega, [address] [address] [facility] [place] Start: 02-26-2025 End: 02-26-2026 Basic metabolic 2000 panel - Serum or Plasma Basic metabolic panel Lab Routine Stage 3b chronic kidney disease (Multi) Expected: 02/26/2025 (Approximate), Expires: 02/26/2026 [facility] Service Area Work Phone: Comment on above: Expected: 02/26/2025 (Approximate), Expi res: 02/26/2026 Start: 02-06-2025 Creatinine measurement Creatinine Level [facility] Start: 02-06-2025 Potassium measurement Potassium Level [facility] Start: 02-04-2025 Hemoglobin A1c measurement A1C [facility] Start: 11-29-2024 Screening for malignant neoplasm of lung Low-dose CT Lung Cancer Screen [facility] Start: 11-27-2024 Thyroid stimulating hormone measurement TSH Level [facility] Start: 11-26-2024 Creatinine measurement Creatinine Level [facility] Start: 11-26-2024 Potassium measurement Potassium Level [facility] Start: 11-20-2024 End: 11-20-2024 Patient encounter procedure 11/20/2024 2:45 PM EST Office Visit [facility] [place] [address] [place] [address] Paty Ortega, DISABILITY SPECIALIST [address] [place] [address] [facility] [place] Start: 11-14-2024 End: 11-14-2024 Patient encounter procedure 11/14/2024 10:40 AM EST Office Visit [facility] [place] [address] Woo Small MD [address] [place] [address] [facility] Start: 11-13-2024 End: 11-13-2024 Patient encounter procedure 11/13/2024 11:30 AM EST Office Visit [facility] [address] [place] [address] Paty Ortega CNP [address] [place] [address] [facility] [place] Start: 11-07-2024 End: 11-07-2024 Patient encounter procedure 11/07/2024 10:00 AM EST Office Visit [facility] [address] [facility] [place] [address] Brock Groves MD [address] [place] [address] [facility] Start: 11-03-2024 End: 11-03-2024 Patient encounter procedure [facility] Start: 10-27-2024 End: 10-27-2024 Admission to same day surgery center 10/27/2024 10:05 AM EST - 10/27/2024 10:55 AM EST Surgery [facility] [address] [place] [phone] Elías Rodriguez MD [address] [place] [address] Left Heart Cath [facility] Comment on above: Left Heart Cath Start: 10-27-2024 Subsequent hospital visit by physician [facility] Start: 10-18-2024 End: 10-18-2024 Patient encounter procedure 10/18/2024 1:20 PM EST Office Visit [facility] [address] [facility] [address] [place] [phone] Woo Small MD [address] [place] [address] [facility] Start: 10-13-2024 Creatinine measurement Creatinine Level [facility] Start: 10-13-2024 Potassium measurement Potassium Level [facility] Start: 10-11-2024 Echocardiography Echocardiogram [facility] Start: 10-06-2024 Hemoglobin A1c measurement [facility] Start: 09-27-2024 Lipid panel Lipid Panel [facility] Start: 09-27-2024 Thyroid stimulating hormone measurement TSH Level [facility] Start: 08-29-2024 End: 08-29-2025 Comprehensive metabolic 2000 panel - Serum or Plasma Comprehensive metabolic panel Lab Routine Stage 3b chronic kidney disease (Multi) Expected: 08/29/2024 (Approximate), Expires: 08/29/2025 [facility] Service Area Work Phone: Comment on above: Expected: 08/29/2024 (Approximate), Expi res: 08/29/2025 Start: 08-29-2024 End: 08-29-2025 Microalbumin/Creatinine [Mass Ratio] in Urine Albumin-Creatinine Ratio, Urine Random Lab Routine Stage 3b chronic kidney disease (Multi) Expected: 08/29/2024 (Approximate), Expires: 08/29/2025 [facility] Work Phone: Comment on above: Expected: 08/29/2024 (Approximate), Expi res: 08/29/2025 Start: 08-29-2024 End: 08-29-2025 Urinalysis complete panel - Urine Urinalysis with Reflex Microscopic Lab Routine Stage 3b chronic kidney disease (Multi) Expected: 08/29/2024 (Approximate), Expires: 08/29/2025 [facility] Work Phone: Comment on above: Expected: 08/29/2024 (Approximate), Expi res: 08/29/2025 Start: 08-29-2024 End: 08-29-2024 Patient encounter procedure 08/29/2024 1:00 PM EDT Office Visit [facility] Building [address] [place] [phone] Madei Albert, NURSE CHEMICAL DEPENDENCY-DISABILITY SPECIALIST, DNP [address] [address] [facility] Start: 08-25-2024 End: 02-23-2025 Microalbumin/Creatinine [Mass Ratio] in Urine Albumin , Urine Random Lab Routine Stage 3b chronic kidney disease (Multi) Expected: 08/25/2024 (Approximate), Expires: 02/23/2025 [facility] Work Phone: Comment on above: Expected: 08/25/2024 (Approximate), Expi res: 02/23/2025 Start: 08-09-2024 Urine screening for protein Diabetes: Urine Protein Screening [facility] Start: 07-21-2024 End: 07-21-2024 Patient encounter procedure 07/21/2024 1:45 PM EDT Office Visit [facility] Endocr[facility]ology [address] [phone] Paty Ortega, TRISTAN [address] [place] [address] [facility] [place] Start: 07-02-2024 COVID-19 Vaccine ( season) COVID-19 Vaccine ( season) [facility] Start: 07-02-2024 COVID-19 Vaccine () COVID-19 Vaccine () [facility] Start: 07-02-2024 Influenza vaccination [facility] Start: 06-21-2024 Diabetic foot examination [facility] Start: 05-31-2024 Urine screening for protein eGFR Diabetes [facility] Start: 04-24-2024 End: 04-24-2024 ambulatory [facility] Start: 04-24-2024 End: 04-24-2024 Patient encounter procedure 04/24/2024 9:40 AM EDT Office Visit [facility] [address] [place] [address] Woo Small MD [address] [place] [address] [facility] Start: 03-27-2024 Hemoglobin A1c measurement A1C [facility] Start: 02-26-2024 Hemoglobin A1c measurement [facility] Start: 02-24-2024 End: 02-23-2025 Basic metabolic 2000 panel - Serum or Plasma Basic metabolic panel Lab Routine Stage 3b chronic kidney disease (Multi) Expected: 02/24/2024 (Approximate), Expires: 02/23/2025 [facility] Service Area Work Phone: Comment on above: Expected: 02/24/2024 (Approximate), Expi res: 02/23/2025 Start: 02-24-2024 End: 02-23-2025 Phosphate [Mass/volume] in Serum or Plasma Phosphorus Lab Routine Stage 3b chronic kidney disease (Multi) Expected: 02/24/2024 (Approximate), Expires: 02/23/2025 [facility] Work Phone: Comment on above: Expected: 02/24/2024 (Approximate), Expi res: 02/23/2025 Start: 02-24-2024 End: 02-23-2025 Urate [Mass/volume] in Serum or Plasma Uric acid Lab Routine Stage 3b chronic kidney disease (Multi) Expected: 02/24/2024 (Approximate), Expires: 02/23/2025 [facility] Work Phone: Comment on above: Expected: 02/24/2024 (Approximate), Expi res: 02/23/2025 Start: 02-24-2024 End: 02-24-2024 Patient encounter procedure 02/24/2024 1:45 PM EDT Office Visit [facility] Medical Office [facility] [address] [place] [address] Madie Albert, NURSE CHEMICAL DEPENDENCY-DISABILITY SPECIALIST, DNP [address] [phone] [facility] Medical Office [facility] Start: 02-20-2024 Diabetic foot examination Foot Exam [facility] Start: 02-18-2024 End: 02-18-2024 ambulatory [facility] [place] Start: 02-18-2024 End: 02-18-2024 Patient encounter procedure 02/18/2024 1:00 PM EDT Office Visit [facility] [place] [address] [place] [phone] Paty Ortega, TRISTAN [address] [place], [place] [phone] [facility] [place] Start: 02-13-2024 Lipid panel Lipid Panel [facility] Start: 02-13-2024 Thyroid stimulating hormone measurement TSH Level [facility] Start: 01-14-2024 End: 01-14-2024 ambulatory [facility] Start: 01-14-2024 End: 01-14-2024 Patient encounter procedure 01/14/2024 11:00 AM EDT Office Visit [facility] [address] [facility] [place] [address] Aylin Lacy CNP [address] [place] [address] [facility] Start: 01-12-2024 End: 01-12-2024 ambulatory [facility] Start: 01-12-2024 End: 01-12-2024 Patient encounter procedure [facility] Start: 01-10-2024 End: 10-08-2024 Comprehensive metabolic 2000 panel - Serum or Plasma Comprehensive Metabolic Panel Lab Routine 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) Expected: 01/10/2024 (Approximate), Expires: 10/08/2024 [facility] Work Phone: Comment on above: Expected: 01/10/2024 (Approximate), Expi res: 10/08/2024 Start: 01-10-2024 End: 10-08-2024 Hemoglobin A1c/Hemoglobin.total in Blood Hemoglobin A1c Lab Routine 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) Expected: 01/10/2024 (Approximate), Expires: 10/08/2024 [facility] Comment on above: Expected: 01/10/2024 (Approximate), Expi res: 10/08/2024 Start: 12-28-2023 Hemoglobin A1c measurement Diabetes: Hemoglobin A1C [facility] Start: 12-09-2023 Glaucoma screening Diabetes: Retinopathy Screening [facility] Start: 11-29-2023 End: 11-29-2023 Patient encounter procedure [facility] Start: 10-19-2023 Diabetic foot examination Foot Exam [facility] Start: 10-08-2023 End: 10-08-2023 Patient encounter procedure 10/08/2023 11:15 AM EST Office Visit [facility] [place] [address] [place] [address] Mary Vargas MD [address] [place] [address] [facility] [place] Start: 09-11-2023 Hemoglobin A1c measurement [facility] Start: 08-25-2023 End: 08-25-2024 Basic metabolic 2000 panel - Serum or Plasma Basic metabolic panel Lab Routine Stage 3b chronic kidney disease (CMS/HCC) Expected: 08/25/2023 (Approximate), Expires: 08/25/2024 [facility] Service Area Work Phone: Comment on above: Expected: 08/25/2023 (Approximate), Expi res: 08/25/2024 Start: 08-25-2023 End: 08-25-2024 Microalbumin/Creatinine [Mass Ratio] in Urine Albumin, urine, random Lab Routine Stage 3b chronic kidney disease (CMS/HCC) Expected: 08/25/2023 (Approximate), Expires: 08/25/2024 [facility] Work Phone: Comment on above: Expected: 08/25/2023 (Approximate), Expi res: 08/25/2024 Start: 07-02-2023 COVID-19 Vaccine ( season) COVID-19 Vaccine ( season) [facility] Start: 07-02-2023 Influenza vaccination [facility] Start: 06-21-2023 End: 06-21-2023 Patient encounter procedure 06/21/2023 1:15 PM EDT Office Visit [facility] [place] [address] [place] [phone] Paty Ortega, DISABILITY SPECIALIST [address] [place] [address] [facility] [place] Start: 06-19-2023 Diabetic foot examination Foot Exam [facility] Start: 06-01-2023 End: 02-20-2024 Comprehensive metabolic 2000 panel - Serum or Plasma Comprehensive Metabolic Panel Lab Routine Type 1 diabetes mellitus with diabetic neuropathy (HCC) Expected: 06/01/2023, Expires: 02/20/2024 [facility] Work Phone: Comment on above: Expected: 06/01/2023, Expires: Start: 06-01-2023 End: 02-20-2024 Hemoglobin A1c/Hemoglobin.total in Blood Hemoglobin A1c Lab Routine Type 1 diabetes mellitus with diabetic neuropathy (HCC) Expected: 06/01/2023, Expires: 02/20/2024 [facility] Comment on above: Expected: 06/01/2023, Expires: 4 Start: 05-14-2023 Hemoglobin A1c measurement A1C [facility] Start: 02-19-2023 End: 02-19-2023 Patient encounter procedure 02/19/2023 Office Visit Endocrinology Paty Ortega, DISABILITY SPECIALIST [address] [place] [address] [facility] [place] Start: 02-13-2023 Diabetic foot examination Foot Exam [facility] Start: 02-05-2023 End: 02-05-2023 Patient encounter procedure 02/05/2023 Appointment Cardiology Paty Ortega, DISABILITY SPECIALIST [address] [place] [address] [facility] Start: 01-30-2023 End: 10-20-2023 Complete blood count with white cell differential, manual CBC and Differential Lab Routine Type 1 diabetes mellitus with diabetic neuropathy (HCC) Expected: 01/30/2023, Expires: 10/20/2023 [facility] Comment on above: Expected: 01/30/2023, Expires: 3 Start: 01-30-2023 End: 10-20-2023 Comprehensive metabolic 2000 panel - Serum or Plasma Comprehensive Metabolic Panel Lab Routine Type 1 diabetes mellitus with diabetic neuropathy (HCC) Expected: 01/30/2023, Expires: 10/20/2023 [facility] Comment on above: Expected: 01/30/2023, Expires: 3 Start: 01-30-2023 End: 10-20-2023 Hemoglobin A1c/Hemoglobin.total in Blood Hemoglobin A1c Lab Routine Type 1 diabetes mellitus with diabetic neuropathy (HCC) Expected: 01/30/2023, Expires: 10/20/2023 [facility] Comment on above: Expected: 01/30/2023, Expires: 3 Start: 01-30-2023 End: 10-20-2023 Lipid 1996 panel - Serum or Plasma Lipid Panel Lab Routine Type 1 diabetes mellitus with diabetic neuropathy (HCC) Expected: 01/30/2023, Expires: 10/20/2023 [facility] Comment on above: Expected: 01/30/2023, Expires: 3 Start: 01-30-2023 End: 10-19-2023 Microalbumin measurement, urine, quantitative Microalbumin/Creatinine Ratio, UR Random Lab Routine Type 1 diabetes mellitus with diabetic neuropathy (HCC) Expected: 01/30/2023, Expires: 10/19/2023 [facility] Comment on above: Expected: 01/30/2023, Expires: 3 Start: 01-30-2023 End: 10-20-2023 Prostate specific Ag [Mass/volume] in Serum or Plasma PSA, Screen Lab Routine Prostate cancer screening Expected: 01/30/2023, Expires: 10/20/2023 [facility] Comment on above: Expected: 01/30/2023, Expires: 3 Start: 01-30-2023 End: 10-20-2023 Thyrotropin [Units/volume] in Serum or Plasma TSH Lab Routine Type 1 diabetes mellitus with diabetic neuropathy (HCC) Expected: 01/30/2023, Expires: 10/20/2023 [facility] Comment on above: Expected: 01/30/2023, Expires: 3 Start: 01-30-2023 End: 10-20-2023 Thyroxine (T4) free [Mass/volume] in Serum or Plasma T4, Free Lab Routine Type 1 diabetes mellitus with diabetic neuropathy (HCC) Expected: 01/30/2023, Expires: 10/20/2023 [facility] Comment on above: Expected: 01/30/2023, Expires: 3 Start: 01-25-2023 [email or web address], Provider: Zoila Lopez, Status: Angelo, Time: 2:45 PM [email or web address], Provider: Zoila Lopez, Status: Angelo, Time: 2:45 PM [facility] Work Phone: Start: 01-18-2023 PTRECHECKA, Provider: Trosterud,Carlene, Status: Pen, Time: 2:00 PM PTRECHECKA, Provider: Carlene Whitehead, Status: Pen, Time: 2:00 PM [facility] Work Phone: Start: 01-15-2023 [email or web address], Provider: Chaya Chan, Status: Pen, Time: 10:00 AM [email or web address], Provider: Chaya Chan, Status: Pen, Time: 10:00 AM [facility] Work Phone: Start: 01-13-2023 [email or web address], Provider: Chaya Chan, Status: Pen, Time: 10:00 AM [email or web address], Provider: Chaya Chan, Status: Pen, Time: 10:00 AM [facility] Work Phone: Start: 01-08-2023 [email or web address], Provider: Chaya Chan, Status: Pen, Time: 10:00 AM [email or web address], Provider: Chaya Chan, Status: Pen, Time: 10:00 AM [facility] Work Phone: Start: 01-06-2023 [email or web address], Provider: Zoila Lopez, Status: Pen, Time: 10:00 AM [email or web address], Provider: Zoila Lopez, Status: Pen, Time: 10:00 AM [facility] Work Phone: Start: 01-01-2023 [email or web address], Provider: Zoila Lopez, Status: Pen, Time: 10:45 AM [email or web address], Provider: Zoila Lopez, Status: Pen, Time: 10:45 AM [facility] Work Phone: Start: 12-30-2022 [email or web address], Provider: Zoila Lopez, Status: Pen, Time: 4:15 PM [email or web address], Provider: Zoila Lopez, Status: Pen, Time: 4:15 PM [facility] Work Phone: Start: 12-25-2022 [email or web address], Provider: Chaya Chan, Status: Pen, Time: 7:45 AM [email or web address], Provider: Chaya Chan, Status: Pen, Time: 7:45 AM [facility] Work Phone: Start: 10-19-2022 End: 10-19-2022 Patient encounter procedure 10/19/2022 Office Visit Endocrinology Paty Ortega, TRISTAN [address] [place] [address] [facility] [place] Start: 10-13-2022 Diabetic foot examination Foot Exam [facility] Start: 09-08-2022 Hemoglobin A1c measurement A1C [facility] Start: 07-02-2022 Influenza vaccination [facility] Start: 06-20-2022 Diabetic foot examination Foot Exam [facility] Start: 06-19-2022 End: 06-19-2022 Patient encounter procedure 06/19/2022 Office Visit Endocrinology Paty Ortega CNP [address] [place] [address] [facility] [place] Start: 06-11-2022 Microalbumin measurement, urine, quantitative Urine Microalbumin [facility] Start: 05-27-2022 History and physical examination, annual for health maintenance Wellness Visit [facility] Start: 05-27-2022 Medicare Wellness Visit Medicare Wellness Visit [facility] Start: 04-13-2022 Hemoglobin A1c measurement A1C [facility] Start: 03-06-2022 COVID-19 Vaccine (4 - Booster for Moderna series) COVID-19 Vaccine (4 - Booster for Moderna series) [facility] Start: 02-18-2022 Diabetic foot examination Foot Exam [facility] Start: 02-13-2022 End: 02-13-2022 Patient encounter procedure 02/13/2022 Office Visit Endocrinology Mary Vargas MD [address] [place] [address] [facility] [place] Start: 01-30-2022 End: 10-14-2022 Comprehensive metabolic 2000 panel - Serum or Plasma Comprehensive Metabolic Panel Lab Routine Type 1 diabetes mellitus with diabetic neuropathy (HCC) Expected: 01/30/2022, Expires: 10/14/2022 [facility] Work Phone: Comment on above: Expected: 01/30/2022, Expires: 2 Start: 01-30-2022 End: 10-14-2022 Hemoglobin A1c/Hemoglobin.total in Blood Hemoglobin A1c Lab Routine Type 1 diabetes mellitus with diabetic neuropathy (HCC) Expected: 01/30/2022, Expires: 10/14/2022 [facility] Comment on above: Expected: 01/30/2022, Expires: 2 Start: 01-30-2022 End: 10-14-2022 Lipid 1996 panel - Serum or Plasma Lipid Panel Lab Routine Type 1 diabetes mellitus with diabetic neuropathy (HCC) Expected: 01/30/2022, Expires: 10/14/2022 [facility] Comment on above: Expected: 01/30/2022, Expires: 2 Start: 01-01-2022 COVID-19 Vaccine (4 - Booster for Moderna series) COVID-19 Vaccine (4 - Booster for Moderna series) [facility] Start: 01-01-2022 COVID-19 Vaccine (4 - Moderna series) COVID-19 Vaccine (4 - Moderna series) [facility] Start: 12-12-2021 Hemoglobin A1c measurement A1C [facility] Start: 12-12-2021 Microalbumin measurement, urine, quantitative Urine Microalbumin [facility] Start: 12-12-2021 Urine screening for protein [facility] Start: 10-18-2021 Diabetic foot examination Foot Exam [facility] Start: 10-14-2021 Glaucoma screening [facility] Start: 10-13-2021 End: 10-13-2021 Patient encounter procedure 10/13/2021 Office Visit Endocrinology Paty Ortega, DISABILITY SPECIALIST [address] [place] [address] [facility] [place] Start: 10-03-2021 Albumin DL <= 20 mg/L (U) [Mass/Vol] Urine Microalbumin [facility] Start: 10-03-2021 Microalbumin measurement, urine, quantitative Urine Microalbumin [facility] Start: 10-01-2021 End: 06-21-2022 Comprehensive metabolic 2000 panel - Serum or Plasma Comprehensive Metabolic Panel Lab Routine Type 1 diabetes mellitus with diabetic polyneuropathy (HCC) Expected: 10/01/2021, Expires: 06/21/2022 [facility] Work Phone: Comment on above: Expected: 10/01/2021, Expires: 2 Start: 10-01-2021 End: 06-21-2022 Hemoglobin A1c/Hemoglobin.total in Blood Hemoglobin A1c Lab Routine Type 1 diabetes mellitus with diabetic polyneuropathy (HCC) Expected: 10/01/2021, Expires: 06/21/2022 [facility] Comment on above: Expected: 10/01/2021, Expires: 2 Start: 10-01-2021 End: 06-21-2022 Thyrotropin [Units/volume] in Serum or Plasma TSH Lab Routine Type 1 diabetes mellitus with diabetic polyneuropathy (HCC) Expected: 10/01/2021, Expires: 06/21/2022 [facility] Comment on above: Expected: 10/01/2021, Expires: 2 Start: 10-01-2021 End: 06-21-2022 Thyroxine (T4) free [Mass/volume] in Serum or Plasma T4, Free Lab Routine Type 1 diabetes mellitus with diabetic polyneuropathy (HCC) Expected: 10/01/2021, Expires: 06/21/2022 [facility] Comment on above: Expected: 10/01/2021, Expires: 2 Start: 09-11-2021 Hemoglobin A1c measurement A1C [facility] Start: 08-13-2021 Hemoglobin A1c measurement A1C [facility] Start: 07-31-2021 COVID-19 Vaccine (3 - Booster for Moderna series) COVID-19 Vaccine (3 - Booster for Moderna series) [facility] Start: 07-04-2021 Prostate specific antigen measurement PSA Level [facility] Start: 07-02-2021 Influenza vaccination Sequential Influenza Vaccine (#1) [facility] Start: 06-20-2021 End: 06-20-2021 Patient encounter procedure 06/20/2021 Office Visit Endocrinology Paty Ortega CNP [address] [place] [address] [phone] [facility] [place] Start: 04-16-2021 History and physical examination, annual for health maintenance Wellness Visit [facility] Start: 04-03-2021 HbA1c (Bld) [Mass fraction] A1C [facility] Start: 02-18-2021 End: 02-18-2021 Office Visit 02/18/2021 Office Visit Endocrinology Mary Vargas MD [address] [place] [address] [phone] [facility] Start: 02-02-2021 End: 10-19-2021 Comprehensive metabolic 2000 panel Comprehensive Metabolic Panel Lab Routine Type 1 diabetes mellitus with diabetic polyneuropathy (HCC) Expected: 02/02/2021, Expires: 10/19/2021 [facility] Comment on above: Expected: 02/02/2021, Expires: Start: 02-02-2021 End: 10-19-2021 Free T4 [Mass/Vol] T4, Free Lab Routine Type 1 diabetes mellitus with diabetic polyneuropathy (HCC) Expected: 02/02/2021, Expires: 10/19/2021 [facility] Comment on above: Expected: 02/02/2021, Expires: Start: 02-02-2021 End: 10-19-2021 HbA1c (Bld) [Mass fraction] Hemoglobin A1c Lab Routine Type 1 diabetes mellitus with diabetic polyneuropathy (HCC) Expected: 02/02/2021, Expires: 10/19/2021 [facility] Comment on above: Expected: 02/02/2021, Expires: Start: 02-02-2021 End: 10-19-2021 TSH Qn TSH Lab Routine Type 1 diabetes mellitus with diabetic polyneuropathy (HCC) Expected: 02/02/2021, Expires: 10/19/2021 [facility] Comment on above: Expected: 02/02/2021, Expires: Start: 12-11-2020 HbA1c (Bld) [Mass fraction] A1C [facility] Start: 11-16-2020 Diabetic foot examination Foot Exam [facility] Start: 10-18-2020 End: 10-18-2020 Office Visit 10/18/2020 Office Visit Endocrinology Keeley Patton, DISABILITY SPECIALIST [address] [address] [phone] [facility] Start: 10-01-2020 End: 06-19-2021 Comprehensive metabolic 2000 panel Comprehensive Metabolic Panel Lab Routine Type 1 diabetes mellitus with diabetic polyneuropathy (HCC) Expected: 10/01/2020, Expires: 06/19/2021 [facility] Comment on above: Expected: 10/01/2020, Expires: 1 Start: 10-01-2020 End: 06-19-2021 HbA1c (Bld) [Mass fraction] Hemoglobin A1c Lab Routine Type 1 diabetes mellitus with diabetic polyneuropathy (HCC) Expected: 10/01/2020, Expires: 06/19/2021 [facility] Comment on above: Expected: 10/01/2020, Expires: 1 Start: 10-01-2020 End: 06-19-2021 Lipid 1996 panel Lipid Panel Lab Routine Type 1 diabetes mellitus with diabetic polyneuropathy (HCC) Expected: 10/01/2020, Expires: 06/19/2021 [facility] Comment on above: Expected: 10/01/2020, Expires: 1 Start: 10-01-2020 End: 06-18-2021 Microalbumin measurement, urine, quantitative Microalbumin/Creatinine Ratio, UR Random Lab Routine Type 1 diabetes mellitus with diabetic polyneuropathy (HCC) Expected: 10/01/2020, Expires: 06/18/2021 [facility] Comment on above: Expected: 10/01/2020, Expires: 1 Start: 07-17-2020 Diabetic foot examination FOOT EXAM [facility] Start: 07-02-2020 Influenza vaccination Sequential Influenza Vaccine (#1) [facility] Start: 07-02-2020 Influenza vaccination given Sequential Influenza Vaccine (#1) [facility] Start: 05-03-2020 HbA1c (Bld) [Mass fraction] A1C [facility] Start: 03-15-2020 End: 03-15-2020 Office Visit 03/15/2020 Office Visit Endocrinology Keeley Patton, DISABILITY SPECIALIST [address] [place] [address] [phone] [facility] Start: 03-13-2020 Diabetic foot examination FOOT EXAM [facility] Start: 01-02-2020 HbA1c (Bld) [Mass fraction] A1C [facility] Start: 11-16-2019 End: 11-16-2019 Office Visit 11/16/2019 Office Visit Endocrinology Paty Ortega, DISABILITY SPECIALIST [address] [place] [id number] [phone] [facility] Start: 11-11-2019 Diabetic foot examination FOOT EXAM [facility] Start: 07-17-2019 End: 07-17-2019 Office Visit 07/17/2019 Office Visit Endocrinology Keeley Patton, DISABILITY SPECIALIST [address] [address] [phone] [facility] Start: 07-05-2019 Diabetic foot examination FOOT EXAM [facility] Start: 07-02-2019 Influenza vaccination given [facility] Start: 03-13-2019 End: 03-13-2019 Ambulatory 03/13/2019 Office Visit Endocrinology Mary Vargas MD [address] [address] [phone] [facility] Start: 02-28-2019 Diabetic foot examination (regime/therapy) FOOT EXAM [facility] Start: 01-31-2019 Pneumococcal vaccination PNEUMOCOCCAL VACCINE AGE 65+ (2 of 2 - PPSV23) [facility] Start: 2018 Respiratory Syncytial Virus Immunization: Risk, 60-74 Risk, or 75+ (1 - 1-dose 75+ series) Respiratory Syncytial Virus Immunization: Risk, 60-74 Risk, or 75+ (1 - 1-dose 75+ series) [facility] Start: 2018 RSV High Risk: (Elderly (60+) or Population) (1 - 1-dose 75+ series) RSV High Risk: (Elderly (60+) or Population) (1 - 1-dose 75+ series) [facility] Start: 11-08-2018 End: 11-08-2018 Ambulatory 11/08/2018 Office Visit Endocrinology Ya Parker PA-C [address] [place] [address] [phone] [facility] Start: 10-29-2018 Diabetic foot examination (regime/therapy) FOOT EXAM [facility] Work Phone: Start: 07-05-2018 End: 07-05-2018 Ambulatory 07/05/2018 Office Visit Endocrinology Paty Ortega, TRISTAN [address] [place] [address] [phone] [facility] Start: 07-02-2018 Influenza vaccination [facility] Start: 07-02-2018 Influenza vaccination given SEQUENTIAL INFLUENZA VACCINE (#1) [facility] Start: 02-28-2018 Ambulatory 02/28/2018 Office Visit Endocrinology Alexandra Givens, TRISTAN [address] [place] [address] [phone] [facility] Start: 02-15-2018 3 comp foot exam completed FOOT EXAM [facility] Work Phone: Start: 10-29-2017 Ambulatory 10/29/2017 Office Visit Endocrinology Mary Vargas MD [address] [facility] [place] [address] [phone] [facility] Start: 07-02-2017 Influenza vaccination SEQUENTIAL INFLUENZA VACCINE (#1) [facility] Work Phone: Start: 07-02-2017 SEQUENTIAL INFLUENZA VACCINE (#1) SEQUENTIAL INFLUENZA VACCINE (#1) [facility] Work Phone: Start: 05-10-2017 HbA1c [facility] Work Phone: Start: 2008 ABDOMINAL AORTIC ULTRASOUND ABDOMINAL AORTIC ULTRASOUND [facility] Work Phone: Start: 2008 Fall risk assessment [facility] Start: 2008 Pneumococcal vaccination PNEUMOCOCCAL VACCINE AGE 65+ (1 of 2 - PCV13) [facility] Work Phone: Start: 2008 PNEUMOCOCCAL VACCINE AGE 65+ (1 of 2 - PCV13) PNEUMOCOCCAL VACCINE AGE 65+ (1 of 2 - PCV13) [facility] Work Phone: Start: 2008 Ultrasound scan of abdominal aorta ABDOMINAL AORTIC ULTRASOUND [facility] Work Phone: Start: 2003 RSV patients and/or patients aged 60+ years (1 - 1-dose 60+ series) RSV patients and/or patients aged 60+ years (1 - 1-dose 60+ series) [facility] Start: 2003 Zoster vacc, sc ZOSTER VACCINE [facility] Work Phone: Start: 1993 Administration of herpes zoster vaccine ZOSTER VACCINES (1 of 2) [facility] Start: 1993 ZOSTER VACCINES (1 of 2) ZOSTER VACCINES (1 of 2) [facility] Start: 1965 DTaP/Tdap/Td Vaccines (1 - Tdap) DTaP/Tdap/Td Vaccines (1 - Tdap) [facility] Start: 1961 Hepatitis C antibody, confirmatory test Hepatitis C Screening [facility] Start: 1961 Hepatitis C screening Hepatitis C Screening [facility] Start: 1955 Adolescent depression screening assessment Depression Screening (PHQ9) [facility] Start: 1955 Depression screening using PHQ-9 (Patient Health Questionnaire 9) score [facility] Start: 1953 Albumin Test strip detection limit <= 20 mg/L mass conc (U) URINE MICROALBUMIN [facility] Work Phone: Start: 1953 Diabetic foot examination Diabetes: Foot Exam [facility] Start: 1953 Glaucoma screening [facility] Start: 1953 Ophthalmic examination and evaluation OPHTHALMOLOGY EXAM [facility] Start: 1953 Urine, microalbumin URINE MICROALBUMIN [facility] Work Phone: Start: 1949 Pneumococcal Vaccine: Age 65+ (1 of 2 - PPSV23) Pneumococcal Vaccine: Age 65+ (1 of 2 - PPSV23) [facility] Start: 1946 History and physical examination, annual for health maintenance Wellness Visit [facility] Start: 1943 End: 1943 Low-dose CT Lung Cancer Screen Low-dose CT Lung Cancer Screen [facility] Work Phone: Start: 1943 Protein mass conc COLONOSCOPY [facility] Start: 1943 Screening colonoscopy COLONOSCOPY [facility] Work Phone: Start: 1943 End: 1943 Screening for malignant neoplasm of lung Low-dose CT Lung Cancer Screen [facility] Start: 1943 End: 1943 Tetanus vaccination [facility] Start: 1943 Colonoscopy COLONOSCOPY [facility] Work Phone: Start: 1943 Cyanocobalamin vitamin b-12 Vitamin B-12 [facility] Start: 1943 Diabetes: Celiac Disease Screening Diabetes: Celiac Disease Screening [facility] Start: 1943 Fall risk assessment Falls Risk Assessment [facility] Start: 1943 Low dose computed tomography of chest without contrast Low-dose CT Lung Cancer Screen [facility] Start: 1943 Medicare Annual Wellness Visit Medicare Annual Wellness Visit (AWV) [facility] Start: 1943 Prostate specific antigen measurement PSA Level [facility] Start: 1943 Screening for malignant neoplasm of colon Colorectal Cancer Screening: Colonoscopy [facility] Start: 1943 TETANUS EVERY 10 YR TETANUS EVERY 10 YR [facility] Work Phone: Alanine aminotransferase [Enzymatic activity/volume] in Serum or Plasma [facility] Albumin [Mass/volume ] in Serum or Plasma [facility] Alkaline phosphatase [Enzymatic activity/volume] in Serum or Plasma [facility] Anion gap in Serum o r Plasma [facility] aPTT in Platelet poo r plasma by Coagulation assay aPTT - baseline Lab STAT As needed (Lab) for 1 Occurrences starting 11/26/2023 [facility] Work Phone: Comment on above: As needed (Lab) for 1 Occurrences starti ng 11/26/2023 Bacteria identified in Blood by Culture [facility] Work Phone: End: 11-26-2023 Bacteria identified in Blood by Culture [facility] Work Phone: Comment on above: STAT (Lab) for 1 Occurrences starting until 11/26/2023 Bacteria identified in Blood by Culture [facility] Work Phone: End: 10-27-2024 Bacteria identified in Unspecified specimen by Aerobe culture [facility] Work Phone: Comment on above: Once for 1 Occurrences starting 10/27/20 until 10/27/2024 End: 06-18-2018 Basic metabolic 2000 panel Basic Metabolic Panel Routine Type 1 diabetes mellitus with diabetic neuropathy (HCC) 1 Occurrences starting 06/17/2017 until 06/18/2018 [facility] Work Phone: Comment on above: 1 Occurrences starting 06/17/2017 until 06/18/2018 End: 10-14-2023 Basic metabolic 2000 panel - Serum or Plasma Basic Metabolic Panel Lab Routine Morning draw (Lab) for 3 Occurrences starting 10/12/2023 until 10/14/2023, 1 completed [facility] Work Phone: Comment on above: Morning draw (Lab) for 3 Occurrences sta rting 10/12/2023 until 10/14/2023, 1 completed End: 03-09-2026 Basic metabolic 2000 panel - Serum or Plasma Basic metabolic panel Lab Routine Coronary 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[place] coronary artery of [place] heart without angina pectoris NSTEMI (non-ST elevated myocardial infarction) (HCC) 1 Occurrences starting 03/09/2025 until 03/09/2026 [facility] Work Phone: Comment on above: 1 Occurrences starting 03/09/2025 until 03/09/2026 Bilirubin, total measurement [facility] BUN/Creatinine ratio [facility] Calcium [Mass/volume ] in Serum or Plasma [facility] Carbon dioxide, tota l [Moles/volume] in Central venous blood [facility] End: 04-20-2022 Carotid artery doppler assessment Ultrasound doppler carotid Vascular Ultrasound Routine Bilateral carotid artery stenosis 1 Occurrences starting 02/18/2021 until 04/20/2022 [facility] Comment on above: 1 Occurrences starting 02/18/2021 until 04/20/2022 End: 12-20-2023 Carotid artery doppler assessment Ultrasound doppler carotid Vascular Ultrasound Routine Bilateral carotid artery stenosis 1 Occurrences starting 10/19/2022 until 12/20/2023 [facility] Work Phone: Comment on above: 1 Occurrences starting 10/19/2022 until 12/20/2023 Cath plmt l hrt & ar ts w/njx & angio img s&i LEFT HEART CATH Cardiovascular stress test abnormal Fatigue, unspecified type SOB (shortness of breath) [facility] End: 02-28-2019 CBC and Differential CBC and Differential Routine Type 1 diabetes mellitus with diabetic neuropathy (HCC) 1 Occurrences starting 02/28/2018 until 02/28/2019 [facility] CBC panel - Blood by Automated count CBC Lab STAT As needed (Lab) for 1 Occurrences starting 11/26/2023 [facility] Work Phone: Comment on above: As needed (Lab) for 1 Occurrences starti ng 11/26/2023 End: 12-02-2023 CBC panel - Blood by Automated count CBC Lab STAT Every other day (Lab) for 3 Occurrences starting 11/28/2023 until 12/02/2023 [facility] Work Phone: Comment on above: Every other day (Lab) for 3 Occurrences starting 11/28/2023 until 12/02/2023 End: 10-14-2023 CBC W Auto Differential panel - Blood CBC and Auto Differential Lab Routine Morning draw (Lab) for 3 Occurrences starting 10/12/2023 until 10/14/2023, 2 completed [facility] Work Phone: Comment on above: Morning draw (Lab) for 3 Occurrences sta rting 10/12/2023 until 10/14/2023, 2 completed Cholesterol [Mass/volume] in Serum or Plasma [facility] Cholesterol in HDL [Mass/volume] in Serum or Plasma [facility] End: 11-11-2019 Complete blood count with white cell differential, manual CBC and Differential Routine Type 1 diabetes mellitus with diabetic neuropathy (HCC) 1 Occurrences starting 11/11/2018 until 11/11/2019 [facility] Comment on above: 1 Occurrences starting 11/11/2018 until 11/11/2019 End: 03-13-2020 Complete blood count with white cell differential, manual CBC and Differential Routine 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) 1 Occurrences starting 03/13/2019 until 03/13/2020 [facility] Comment on above: 1 Occurrences starting 03/13/2019 until 03/13/2020 End: 02-19-2022 Complete blood count with white cell differential, manual CBC and Differential Lab Routine Type 1 diabetes mellitus with diabetic polyneuropathy (HCC) 1 Occurrences starting 02/18/2021 until 02/19/2022 [facility] Comment on above: 1 Occurrences starting 02/18/2021 until 02/19/2022 End: 02-14-2023 Complete blood count with white cell differential, manual CBC and Differential Lab Routine Type 1 diabetes mellitus with diabetic neuropathy (HCC) 1 Occurrences starting 02/13/2022 until 02/14/2023 [facility] Work Phone: Comment on above: 1 Occurrences starting 02/13/2022 until 02/14/2023 End: 02-18-2025 Complete blood count with white cell differential, manual CBC and Differential Lab Routine Type 1 diabetes mellitus with diabetic neuropathy (HCC) 1 Occurrences starting 02/18/2024 until 02/18/2025 [facility] Comment on above: 1 Occurrences starting 02/18/2024 until 02/18/2025 End: 07-22-2025 Complete blood count with white cell differential, manual CBC and Differential Lab Routine Type 1 diabetes mellitus with diabetic neuropathy (HCC) 1 Occurrences starting 07/21/2024 until 07/22/2025 [facility] Comment on above: 1 Occurrences starting 07/21/2024 until 07/22/2025 End: 03-13-2026 Complete blood count with white cell differential, manual CBC and Differential Lab Routine Type 1 diabetes mellitus with diabetic neuropathy (HCC) 1 Occurrences starting 03/12/2025 until 03/13/2026 [facility] Comment on above: 1 Occurrences starting [...] 1 Occurrences starting 07/05/2018 until 07/06/2019 [facility] Comment on above: 1 Occurrences starting 07/05/2018 until 07/06/2019 End: 11-11-2019 Comprehensive metabolic 2000 panel Comprehensive Metabolic Panel Routine Essential hypertension 1 Occurrences starting 11/11/2018 until 11/11/2019 [facility] Comment on above: 1 Occurrences starting 11/11/2018 until 11/11/2019 End: 07-17-2020 Comprehensive metabolic 2000 panel Comprehensive Metabolic Panel Lab Routine Type 1 diabetes mellitus with diabetic polyneuropathy (HCC) 1 Occurrences starting 07/17/2019 until 07/17/2020 [facility] Comment on above: 1 Occurrences starting 07/17/2019 until 07/17/2020 End: 11-16-2020 Comprehensive metabolic 2000 panel Comprehensive Metabolic Panel Lab Routine Type I diabetes mellitus with neurological manifestations, uncontrolled (HCC) 1 Occurrences starting 11/16/2019 until 11/16/2020 [facility] Comment on above: 1 Occurrences starting 11/16/2019 until 11/16/2020 End: 03-13-2020 Comprehensive metabolic 2000 panel Comprehensive Metabolic Panel Routine 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) 1 Occurrences starting 03/13/2019 until 03/13/2020 [facility] Comment on above: 1 Occurrences starting 03/13/2019 until 03/13/2020 End: 02-19-2022 Comprehensive metabolic 2000 panel - Serum or Plasma Comprehensive Metabolic Panel Lab Routine Type 1 diabetes mellitus with diabetic polyneuropathy (HCC) 1 Occurrences starting 02/18/2021 until 02/19/2022 [facility] Comment on above: 1 Occurrences starting 02/18/2021 until 02/19/2022 End: 02-14-2023 Comprehensive metabolic 2000 panel - Serum or Plasma Comprehensive Metabolic Panel Lab Routine Type 1 diabetes mellitus with diabetic neuropathy (HCC) 1 Occurrences starting 02/13/2022 until 02/14/2023 [facility] Comment on above: 1 Occurrences starting 02/13/2022 until 02/14/2023 End: 06-20-2023 Comprehensive metabolic 2000 panel - Serum or Plasma Comprehensive Metabolic Panel Lab Routine Type 1 diabetes mellitus with diabetic neuropathy (HCC) 1 Occurrences starting 06/19/2022 until 06/20/2023 [facility] Work Phone: Comment on above: 1 Occurrences starting 06/19/2022 until 06/20/2023 End: 02-18-2025 Comprehensive metabolic 2000 panel - Serum or Plasma Comprehensive Metabolic Panel Lab Routine Type 1 diabetes mellitus with diabetic neuropathy (HCC) 1 Occurrences starting 02/18/2024 until 02/18/2025 [facility] Work Phone: Comment on above: 1 Occurrences starting 02/18/2024 until 02/18/2025 End: 07-22-2025 Comprehensive metabolic 2000 panel - Serum or Plasma Comprehensive Metabolic Panel Lab Routine Type 1 diabetes mellitus with diabetic neuropathy (HCC) 1 Occurrences starting 07/21/2024 until 07/22/2025 [facility] Work Phone: Comment on above: 1 Occurrences starting 07/21/2024 until 07/22/2025 End: 11-14-2025 Comprehensive metabolic 2000 panel - Serum or Plasma Comprehensive Metabolic Panel Lab Routine Type 1 diabetes mellitus with diabetic neuropathy (HCC) 1 Occurrences starting 11/13/2024 until 11/14/2025 [facility] Work Phone: Comment on above: 1 Occurrences starting 11/13/2024 until 11/14/2025 End: 03-13-2026 Comprehensive metabolic 2000 panel - Serum or Plasma Comprehensive Metabolic Panel Lab Routine Type 1 diabetes mellitus with diabetic neuropathy (HCC) 1 Occurrences starting 03/12/2025 until 03/13/2026 [facility] Work Phone: Comment on above: 1 Occurrences starting 03/12/2025 until 03/13/2026 End: 02-28-2019 Comprehensive metabolic panel [AGGREGATE] Comprehensive Metabolic Panel Routine Type 1 diabetes mellitus with diabetic neuropathy (HCC) Essential hypertension 1 Occurrences starting 02/28/2018 until 02/28/2019 [facility] End: 10-30-2018 Comprehensive metabolic panel [AGGREGATE] Comprehensive Metabolic Panel Routine Type 1 diabetes mellitus with diabetic neuropathy (HCC) Essential hypertension Pure hypercholesterolemia 1 Occurrences starting 10/29/2017 until 10/30/2018 [facility] Work Phone: Creatinine [Mass/volume] in Serum or Plasma [facility] End: 11-26-2023 ECG 12 lead [facility] Work Phone: Comment on above: Once for 1 Occurrences starting 11/26/19 24 until 11/26/2023 Electrocardiogram, 12-lead PRN ACS symptoms Electrocardiogram, 12-lead PRN ACS symptoms ECG Routine As needed until discontinued starting 10/11/2023 [facility] Work Phone: Comment on above: As needed until discontinued starting Electrocardiogram, 12-lead PRN ACS symptoms Electrocardiogram, 12-lead PRN ACS symptoms ECG Routine As needed until discontinued starting 10/11/2023 [facility] Work Phone: Comment on above: As needed until discontinued starting Erythrocyte mean corpuscular volume determination [facility] End: 02-28-2019 External Lab Microalbumin/Creatinine External Lab Microalbumin/Creatinine Routine Type 1 diabetes mellitus with diabetic neuropathy (HCC) Essential hypertension 1 Occurrences starting 02/28/2018 until 02/28/2019 [facility] End: 11-11-2019 External Lab Microalbumin/Creatinine External Lab Microalbumin/Creatinine Routine Essential hypertension 1 Occurrences starting 11/11/2018 until 11/11/2019 [facility] Comment on above: 1 Occurrences starting 11/11/2018 until 11/11/2019 End: 02-19-2022 External Lab Microalbumin/Creatinine External Lab Microalbumin/Creatinine Lab Routine Type 1 diabetes mellitus with diabetic polyneuropathy (HCC) 1 Occurrences starting 02/18/2021 until 02/19/2022 [facility] Comment on above: 1 Occurrences starting 02/18/2021 until 02/19/2022 End: 02-14-2023 External Lab Microalbumin/Creatinine External Lab Microalbumin/Creatinine Lab Routine Type 1 diabetes mellitus with diabetic neuropathy (HCC) 1 Occurrences starting 02/13/2022 until 02/14/2023 [facility] Comment on above: 1 Occurrences starting 02/13/2022 until 02/14/2023 Glucose [Mass/volume ] in Serum or Plasma POCT GLUCOSE Point of Care Testing Routine 4x daily - AC and at bedtime until discontinued starting 10/11/2023 [facility] Work Phone: Comment on above: 4x daily - AC and at bedtime until disco ntinued starting 10/11/2023 End: 10-15-2023 Glucose [Mass/volume] in Serum or Plasma POCT GLUCOSE Point of Care Testing Routine 4 times daily before meals and at bedtime for 3 Days starting 10/12/2023 until 10/15/2023 [facility] Work Phone: Comment on above: 4 times daily before meals and at bedtim e for 3 Days starting 10/12/2023 until 10/15/2023 Glucose [Mass/volume ] in Serum or Plasma [facility] End: 02-28-2019 HbA1c Hemoglobin A1c Routine Type 1 diabetes mellitus with diabetic neuropathy (HCC) Essential hypertension 1 Occurrences starting 02/28/2018 until 02/28/2019 [facility] End: 10-30-2018 HbA1c Hemoglobin A1c Routine Type 1 diabetes mellitus with diabetic neuropathy (HCC) Essential hypertension Pure hypercholesterolemia 1 Occurrences starting 10/29/2017 until 10/30/2018 [facility] Work Phone: End: 07-17-2020 HbA1c (Bld) [Mass fraction] Hemoglobin A1c Lab Routine Type 1 diabetes mellitus with diabetic polyneuropathy (HCC) 1 Occurrences starting 07/17/2019 until 07/17/2020 [facility] Comment on above: 1 Occurrences starting 07/17/2019 until 07/17/2020 End: 11-16-2020 HbA1c (Bld) [Mass fraction] Hemoglobin A1c Lab Routine Type I diabetes mellitus with neurological manifestations, uncontrolled (HCC) 1 Occurrences starting 11/16/2019 until 11/16/2020 [facility] Comment on above: 1 Occurrences starting 11/16/2019 until 11/16/2020 End: 03-13-2020 HbA1c (Bld) [Mass fraction] Hemoglobin A1c Routine 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) 1 Occurrences starting 03/13/2019 until 03/13/2020 [facility] Comment on above: 1 Occurrences starting 03/13/2019 until 03/13/2020 Hematocrit [Volume Fraction] of Blood [facility] Hemoglobin [Mass/volume] in Blood [facility] End: 02-19-2022 Hemoglobin A1c/Hemoglobin.total in Blood Hemoglobin A1c Lab Routine Type 1 diabetes mellitus with diabetic polyneuropathy (HCC) 1 Occurrences starting 02/18/2021 until 02/19/2022 [facility] Comment on above: 1 Occurrences starting 02/18/2021 until 02/19/2022 End: 02-14-2023 Hemoglobin A1c/Hemoglobin.total in Blood Hemoglobin A1c Lab Routine Type 1 diabetes mellitus with diabetic neuropathy (HCC) 1 Occurrences starting 02/13/2022 until 02/14/2023 [facility] Comment on above: 1 Occurrences starting 02/13/2022 until 02/14/2023 End: 06-20-2023 Hemoglobin A1c/Hemoglobin.total in Blood Hemoglobin A1c Lab Routine Type 1 diabetes mellitus with diabetic neuropathy (HCC) 1 Occurrences starting 06/19/2022 until 06/20/2023 [facility] Comment on above: 1 Occurrences starting 06/19/2022 until 06/20/2023 End: 02-18-2025 Hemoglobin A1c/Hemoglobin.total in Blood Hemoglobin A1c Lab Routine Type 1 diabetes mellitus with diabetic neuropathy (HCC) 1 Occurrences starting 02/18/2024 until 02/18/2025 [facility] Comment on above: 1 Occurrences starting 02/18/2024 until 02/18/2025 End: 07-22-2025 Hemoglobin A1c/Hemoglobin.total in Blood Hemoglobin A1c Lab Routine Type 1 diabetes mellitus with diabetic neuropathy (HCC) 1 Occurrences starting 07/21/2024 until 07/22/2025 [facility] Comment on above: 1 Occurrences starting 07/21/2024 until 07/22/2025 End: 11-14-2025 Hemoglobin A1c/Hemoglobin.total in Blood Hemoglobin A1c Lab Routine Type 1 diabetes mellitus with diabetic neuropathy (HCC) 1 Occurrences starting 11/13/2024 until 11/14/2025 [facility] Comment on above: 1 Occurrences starting 11/13/2024 until 11/14/2025 End: 03-13-2026 Hemoglobin A1c/Hemoglobin.total in Blood Hemoglobin A1c Lab Routine Type 1 diabetes mellitus with diabetic neuropathy (HCC) 1 Occurrences starting 03/12/2025 until 03/13/2026 [facility] Comment on above: 1 Occurrences starting 03/12/2025 until 03/13/2026 End: 07-06-2019 Hemoglobin A1c/Hemoglobin.total mass fraction (Bld) Hemoglobin A1c Routine Type 1 diabetes mellitus with diabetic neuropathy (HCC) 1 Occurrences starting 07/05/2018 until 07/06/2019 [facility] Comment on above: 1 Occurrences starting 07/05/2018 until 07/06/2019 End: 11-11-2019 Hemoglobin A1c/Hemoglobin.total mass fraction (Bld) Hemoglobin A1c Routine Type 1 diabetes mellitus with diabetic neuropathy (HCC) 1 Occurrences starting 11/11/2018 until 11/11/2019 [facility] Comment on above: 1 Occurrences starting 11/11/2018 until 11/11/2019 End: 06-18-2018 Hemoglobin A1c/Hemoglobin.total mass fraction (Bld) Hemoglobin A1c Routine Type 1 diabetes mellitus with diabetic neuropathy (HCC) 1 Occurrences starting 06/17/2017 until 06/18/2018 [facility] Work Phone: Comment on above: 1 Occurrences starting 06/17/2017 until 06/18/2018 Heparin unfractionat ed [Units/volume] in Platelet poor plasma by Chromogenic method [facility] Work Phone: Comment on above: As needed (Lab) for 1 Occurrences starti ng 11/26/2023 As needed (Lab) for 30 Occurrences starting 11/26/2023 End: 10-13-2023 Home O2 eval (desaturation screen) Home O2 eval (desaturation screen) Respiratory Care Routine Once for 1 Occurrences starting 10/13/2023 until 10/13/2023 [facility] Service [facility] Work Phone: Comment on above: Once for 1 Occurrences starting 10/13/20 until 10/13/2023 Legionella pneumophi la Ag [Presence] in Urine [facility] Leukocytes [#/volume ] in Blood [facility] End: 11-11-2019 Lipid 1996 panel Lipid Panel Routine Type 1 diabetes mellitus with diabetic neuropathy (HCC) 1 Occurrences starting 11/11/2018 until 11/11/2019 [facility] Comment on above: 1 Occurrences starting 11/11/2018 until 11/11/2019 End: 07-17-2020 Lipid 1996 panel Lipid Panel Lab Routine Pure hypercholesterolemia 1 Occurrences starting 07/17/2019 until 07/17/2020 [facility] Comment on above: 1 Occurrences starting 07/17/2019 until 07/17/2020 End: 02-19-2022 Lipid 1996 panel - Serum or Plasma Lipid Panel Lab Routine Type 1 diabetes mellitus with diabetic polyneuropathy (HCC) 1 Occurrences starting 02/18/2021 until 02/19/2022 [facility] Comment on above: 1 Occurrences starting 02/18/2021 until 02/19/2022 End: 02-18-2025 Lipid 1996 panel - Serum or Plasma Lipid Panel Lab Routine Type 1 diabetes mellitus with diabetic neuropathy (HCC) 1 Occurrences starting 02/18/2024 until 02/18/2025 [facility] Comment on above: 1 Occurrences starting 02/18/2024 until 02/18/2025 End: 07-22-2025 Lipid 1996 panel - Serum or Plasma Lipid Panel Lab Routine Type 1 diabetes mellitus with diabetic neuropathy (HCC) 1 Occurrences starting 07/21/2024 until 07/22/2025 [facility] Comment on above: 1 Occurrences starting 07/21/2024 until 07/22/2025 End: 11-14-2025 Lipid 1996 panel - Serum or Plasma Lipid Panel Lab Routine Type 1 diabetes mellitus with diabetic neuropathy (HCC) Pure hypercholesterolemia 1 Occurrences starting 11/13/2024 until 11/14/2025 [facility] Comment on above: 1 Occurrences starting 11/13/2024 until 11/14/2025 End: 03-13-2026 Lipid 1996 panel - Serum or Plasma Lipid Panel Lab Routine Type 1 diabetes mellitus with diabetic neuropathy (HCC) 1 Occurrences starting 03/12/2025 until 03/13/2026 [facility] Comment on above: 1 Occurrences starting 03/12/2025 until 03/13/2026 End: 02-28-2019 Lipid panel Lipid Panel Routine Type 1 diabetes mellitus with diabetic neuropathy (HCC) 1 Occurrences starting 02/28/2018 until 02/28/2019 [facility] Low density lipoprot ein cholesterol measurement [facility] Mean corpuscular hemoglobin concentration determination [facility] Mean corpuscular hemoglobin determination [facility] Measurement of renal function [facility] Neutrophil count [facility] Neutrophil percent differential count [facility] Noninvasive Ventilation Noninvas frank Ventilation Respiratory Care Routine For RT frequency use only for continuous procedures with task-based reminders at 8a and 8p until discontinued starting 11/26/2023 [facility] Work Phone: Comment on above: For RT frequency use only for continuous procedures with task-based reminders at 8a and 8p until discontinued starting 11/26/2023 Patient Education Hemodialysis E D Hemodialysis [facility] Work Phone: Patient referral [facility] Work Phone: Platelets [#/volume] in Blood [facility] Potassium measurement [facility] Procalcitonin [Mass/volume] in Serum or Plasma by Immunoassay [facility] End: 03-12-2020 Prostate specific Ag [Mass/Vol] PSA, Screen Routine Prostate cancer screening 1 Occurrences starting 03/13/2019 until 03/12/2020 [facility] Comment on above: 1 Occurrences starting 03/13/2019 until 03/12/2020 End: 02-13-2023 Prostate specific Ag [Mass/volume] in Serum or Plasma PSA, Screen Lab Routine Prostate cancer screening 1 Occurrences starting 02/13/2022 until 02/13/2023 [facility] Comment on above: 1 Occurrences starting 02/13/2022 until 02/13/2023 Prothrombin time (PT) Protime-IN R Lab STAT As needed (Lab) for 1 Occurrences starting 11/26/2023 [facility] Work Phone: Comment on above: As needed (Lab) for 1 Occurrences starti ng 11/26/2023 End: 10-29-2018 PSA, Screen PSA, Screen Routine Prostate cancer screening 1 Occurrences starting 10/29/2017 until 10/29/2018 [facility] Work Phone: Red blood cell count [facility] Red cell distributio n width determination [facility] End: 10-11-2023 Respiratory care eval and treat Respiratory care eval and treat Respiratory Care Routine Once for 1 Occurrences starting 10/11/2023 until 10/11/2023 [facility] Work Phone: Comment on above: Once for 1 Occurrences starting 10/11/20 23 until 10/11/2023 Respiratory pathogen s DNA and RNA panel - Respiratory specimen by ALICE with probe detection [facility] Serum chloride measurement [facility] Sodium measurement [facility] End: 10-21-2024 SPECT Heart perfusion NM Myocardial Perfusion Multiple SPECT Imaging Routine Congestive heart failure, unspecified HF chronicity, unspecified heart failure type (HCC) 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 1 Occurrences starting 10/21/2023 until 10/21/2024 [facility] Work Phone: Comment on above: 1 Occurrences starting 10/21/2023 until 10/21/2024 End: 11-11-2019 T4 free mass conc T4, Free Routine Type 1 diabetes mellitus with diabetic neuropathy (HCC) 1 Occurrences starting 11/11/2018 until 11/11/2019 [facility] Comment on above: 1 Occurrences starting 11/11/2018 until 11/11/2019 End: 02-18-2025 Thyrotropin [Units/volume] in Serum or Plasma TSH Lab Routine Type 1 diabetes mellitus with diabetic neuropathy (HCC) 1 Occurrences starting 02/18/2024 until 02/18/2025 [facility] Comment on above: 1 Occurrences starting 02/18/2024 until 02/18/2025 End: 07-22-2025 Thyrotropin [Units/volume] in Serum or Plasma TSH Lab Routine Type 1 diabetes mellitus with diabetic neuropathy (HCC) 1 Occurrences starting 07/21/2024 until 07/22/2025 [facility] Comment on above: 1 Occurrences starting 07/21/2024 until 07/22/2025 End: 11-14-2025 Thyrotropin [Units/volume] in Serum or Plasma TSH Lab Routine Type 1 diabetes mellitus with diabetic neuropathy (HCC) 1 Occurrences starting 11/13/2024 until 11/14/2025 [facility] Comment on above: 1 Occurrences starting 11/13/2024 until 11/14/2025 Thyrotropin [Units/volume] in Serum or Plasma TSH with Reflex Free T4 Lab Routine 02/12/2025 10:25 AM EDT [facility] Work Phone: End: 03-13-2026 Thyrotropin [Units/volume] in Serum or Plasma TSH Lab Routine Type 1 diabetes mellitus with diabetic neuropathy (HCC) 1 Occurrences starting 03/12/2025 until 03/13/2026 [facility] Comment on above: 1 Occurrences starting 03/12/2025 until 03/13/2026 End: 11-11-2019 Thyrotropin Qn TSH Routine Type 1 diabetes mellitus with diabetic neuropathy (HCC) 1 Occurrences starting 11/11/2018 until 11/11/2019 [facility] Comment on above: 1 Occurrences starting 11/11/2018 until 11/11/2019 End: 02-28-2019 Thyroxine (T4) free T4, Free Routine Type 1 diabetes mellitus with diabetic neuropathy (HCC) 1 Occurrences starting 02/28/2018 until 02/28/2019 [facility] End: 02-18-2025 Thyroxine (T4) free [Mass/volume] in Serum or Plasma T4, Free Lab Routine Type 1 diabetes mellitus with diabetic neuropathy (HCC) 1 Occurrences starting 02/18/2024 until 02/18/2025 [facility] Comment on above: 1 Occurrences starting 02/18/2024 until 02/18/2025 End: 07-22-2025 Thyroxine (T4) free [Mass/volume] in Serum or Plasma T4, Free Lab Routine Type 1 diabetes mellitus with diabetic neuropathy (HCC) 1 Occurrences starting 07/21/2024 until 07/22/2025 [facility] Comment on above: 1 Occurrences starting 07/21/2024 until 07/22/2025 End: 11-14-2025 Thyroxine (T4) free [Mass/volume] in Serum or Plasma T4, Free Lab Routine Type 1 diabetes mellitus with diabetic neuropathy (HCC) 1 Occurrences starting 11/13/2024 until 11/14/2025 [facility] Comment on above: 1 Occurrences starting 11/13/2024 until 11/14/2025 End: 03-13-2026 Thyroxine (T4) free [Mass/volume] in Serum or Plasma T4, Free Lab Routine Type 1 diabetes mellitus with diabetic neuropathy (HCC) 1 Occurrences starting 03/12/2025 until 03/13/2026 [facility] Comment on above: 1 Occurrences starting 03/12/2025 until 03/13/2026 Total cholesterol:HD L ratio measurement [facility] Total protein measurement [facility] Triglycerides measurement [facility] End: 02-28-2019 TSH TSH Routine Type 1 diabetes mellitus with diabetic neuropathy (HCC) 1 Occurrences starting 02/28/2018 until 02/28/2019 [facility] Urea nitrogen [Mass/volume] in Serum or Plasma [facility] Urine culture [facility] VLDL cholesterol measurement [facility] Immunizations Immunization Date Immunization Notes Care Provider Fa cility 07-03-2020 zoster vaccine recombinant Ayanna Albert DO Work Phone: [facility] Work Phone: 04-17-2020 zoster vaccine recombinant Ayanna Young DO Work Phone: [facility] Work Phone: 03-31-2019 pneumococcal polysaccharide vaccine, 23 valent Ayanna Albert DO Work Phone: [facility] Work Phone: 01-31-2018 pneumococcal conjuga te vaccine, 13 valent Ayanna Albert DO Work Phone: [facility] Work Phone: 11-10-2016 HEMOGLOBIN A1C Ya Parker [facility] Work Phone: Payers Date Payer Category Payer Self-pay [id number] 2021 Medicare (Managed Care) [employer] MEDICARE [id number] 2021 Medicare PPO [employer] MEDICARE P JAYDON (PPO) [id number] 2021 Private Health Insurance [id number] 2015 Medicare [id number] 2015 Medicare [id number]. [id number] 2015 Medicare [id number]. 1.13.385.2. [id number] 2015 Medicare [id number] 2.16.840.1.354520.3.249.13 1943 Unknown [id number] 2.16.840.1.141899.3.579.2. 1068 1943 Unknown [id number] 2.16.840.1.185020.3.579.2. 1068 1943 Unknown [id number] 2.16.840.1.459651.3.579.2. 1068 1943 Unknown [id number] 2.16.840.1.780984.3.579.2. 1068 1943 Unknown [id number] 2.16.840.1.367406.3.579.2. 1068 1943 Unknown [id number] 2.16.840.1.771385.3.579.2. 1068 1943 Unknown [id number] 2.16.840.1.099414.3.579.2. 1068 1943 Unknown [id number] 2.16.840.1.173726.3.579.2. 1068 1943 Unknown [id number] 2.16.840.1.817175.3.579.2. 1068 1943 Unknown [id number] 2.16.840.1.019428.3.579.2. 1068 1943 Unknown [id number] 2.16.840.1.730276.3.579.2. 1068 1943 Unknown [id number] 2.16.840.1.605406.3.579.2. 356 1943 Unknown [id number] 2.16.840.1.459002.3.579.2. 1244 1943 Unknown [id number] 2.16.840.1.935939.3.579.2. 1244 1943 Unknown [id number] 2.16.840.1.275903.3.579.2. 1245 1943 Unknown [id number] 2.16.840.1.101787.3.579.2. 1244 1943 Unknown [id number] 2.16.840.1.182444.3.579.2. 1244 1943 Unknown [id number] 2.16.840.1.925793.3.579.2. 90 1943 Unknown [id number] 2.16.840.1.507751.3.579.2. 90 1943 Unknown [id number] 2.16.840.1.972305.3.579.2. 1242 1943 Unknown [id number] 2.16.840.1.451525.3.579.2. 1943 Unknown [id number] 2.16.840.1.650599.3.579.2. 1943 Unknown [id number] 2.16.840.1.770210.3.579.2. 1943 Unknown [id number] 2.16.840.1.131535.3.579.2. 1943 Unknown [id number] 2.16.840.1.755870.3.579.2. 1943 Unknown [id number] 2.16.840.1.547913.3.579.2. 90 1943 Unknown [id number] 2.16.840.1.365952.3.579.2. 90 1943 Unknown [id number] 2.16.840.1.645598.3.579.2. 90 1943 Unknown [id number] 2.16.840.1.933194.3.579.2. 90 1943 Unknown [id number] 2.16.840.1.236336.3.579.2. 903 1943 Unknown [id number] 2.16.840.1.724210.3.579.2. 903 1943 Unknown [id number] 2.16.840.1.776627.3.579.2. 903 1943 Unknown [id number] 2.16.840.1.781487.3.579.2. 903 1943 Unknown [id number] 2.16.840.1.585491.3.579.2. 903 Unknown [employer] Unknown [id number] 2.16.840.1.505205.3.579.2. 462 Unknown [id number] 2.16.840.1.535547.3.579.2. 462 Unknown [id number] 2.16840.1.186567.3.579.2. 462 Unknown [id number] 2.16.840.1.921474.3.579.2. 462 Unknown [id number] 2.16.840.1.528268.3.579.2. 462 Unknown [id number] 2.16.840.1.119863.3.579.2. 462 Unknown [id number] 2.16.840.1.833754.3.579.2. 462 Unknown [id number] 2.16840.1.854476.3.579.2. 462 Unknown [id number] 2.16.840.1.654795.3.579.2. 462 Unknown [id number] 2.16.840.1.677703.3.579.2. 462 Unknown [id number] 2.16.840.1.932188.3.579.2. 462 Unknown [id number] 2.16.840.1.833127.3.579.2. 462 Unknown [id number] 2.16.840.1.180486.3.579.2. 462 Unknown [id number] 2.16.840.1.130207.3.579.2. 462 Unknown [id number] 2.16.840.1.810853.3.579.2. 462 Unknown [id number] 2.16.840.1.788164.3.579.2. 462 Unknown [id number] 2.16.840.1.738304.3.579.2. 462 Unknown [id number] 2.16.840.1.835884.3.579.2. 462 Unknown [id number] 2.16.840.1.462448.3.579.2. 462 Unknown [id number] 2.16.840.1.805022.3.579.2. 462 Unknown [id number] 2.16.840.1.270142.3.579.2. 462 Unknown [id number] 2.16.840.1.822595.3.579.2. 462 Unknown [id number] 2.16.840.1.855102.3.579.2. 462 Unknown [id number] 2.16.840.1.852641.3.579.2. 462 Unknown [id number] 2.16.840.1.931494.3.579.2. 462 Unknown [id number] 2.16.840.1.696270.3.579.2. 462 Social History Date Type Detail Facility Start: 11-01-1965 End: 11-09-2024 Tobacco smoking status ALIS Current every day smoker [facility] Work Phone: Start: 02-28-2018 End: 02-28-2025 Cigarettes smoked current (pack per day) - Reported [facility] Start: 1945 Sex Assigned At Not on file [facility] Work Phone: Start: 07-17-2019 End: 03-12-2025 Alcohol intake Current non-drinker of alcohol (finding) [facility] Start: 06-18-2020 End: 11-09-2024 Tobacco use and exposure Never used [facility] Start: 02-03-2022 End: 02-26-2025 Exposure to SARS-CoV-2 (event) Not sure [facility] Start: 11-01-1965 History of tobacco use Cigarette Smoker [facility] Start: 10-19-2022 End: 02-28-2025 Tobacco use panel [facility] Start: 08-25-2023 End: 02-26-2025 Alcohol intake Lifetime non-drinker (finding) [facility] Work Phone: How hard is it for y ou to pay for the very basics like food, housing, medical care, and heating Not hard at all [facility] In the past 12 month s, was there a time when you were not able to pay the mortgage or rent on time? No [facility] Work Phone: Start: 1945 Sex Assigned At Male [facility] Start: 10-11-2023 Gender identity Identifies as male gender (finding) [facility] Work Phone: Start: 10-11-2023 Sexual orientation Heterosexual (finding) [facility] Work Phone: Start: 08-05-2021 Tobacco smoking status NHIS Unknown if ever smoked [facility] (I/We) worried sarah er (my/our) food would run out before (I/we) got money to buy more. Never true [facility] Start: 02-09-2025 Sex Male (finding) [facility] Medical Equipment Procedure Code Equipment Code Equipment Origin al Text Equipment Identifier Dates [id number] Start: 08-12-2015 End: 03-13-2019 USE DIRECTED FOUR TIMES A DAY FOR INSULIN INJECTION [id number] Start: 09-12-2018 E10.9 Use as directed 4 times per day. [id number] Start: 06-10-2017 use as directed 4 times per day for insulin injection. [id number] Start: 06-17-2017 use as directed 4 times per day for insulin injection. [id number] Start: 05-19-2016 End: 06-17-2017 Use as directed 4 times per day. Dx E10.9 Patient with type 1 DM on insulin with hypoglycemia. Needs to check BG QID; takes insulin QID . [id number] Start: 03-13-2019 Use as directed 4x daily DX code E10.65 . [id number] Start: 10-20-2019 Use as directed 4 times per day. Dx E10.9 Patient with type 1 DM on insulin with hypoglycemia. Needs to check BG QID; takes insulin QID . [id number] Start: 03-15-2020 End: 02-18-2021 Use as directed 4x daily DX code E10.65 . [id number] Start: 10-07-2020 End: 10-08-2021 Use as directed 4 times per day. Dx E10.9 Patient with type 1 DM on insulin with hypoglycemia. Needs to check BG QID; takes insulin QID . [id number] Start: 02-18-2021 End: 02-13-2022 Use as directed 4x daily DX code E10.65 . [id number] Start: 10-09-2021 End: 12-31-2022 Use as directed 4 times per day. Dx E10.9 Patient with type 1 DM on insulin with hypoglycemia. Needs to check BG QID; takes insulin QID . [id number] Start: 02-13-2022 End: 02-19-2023 Use as directed 4x daily DX code E10.65 . [id number] Start: 12-31-2022 Use as directed 4 times per day. Dx E10.9 Patient with type 1 DM on insulin with hypoglycemia. Needs to check BG QID; takes insulin QID . [id number] Start: 02-19-2023 End: 03-06-2024 BD Jolynn 2nd Gen Pen Needle 32 gauge x 5/32 needle [id number] Start: 07-01-2023 Use as directed 4 times per day. Dx E10.9 Patient with type 1 DM on insulin with hypoglycemia. Needs to check BG QID; takes insulin QID . [id number] Start: 02-19-2023 Use as directed 4x daily Dx code E10.65 . [id number] Start: 12-01-2023 End: 12-08-2024 TEST BLOOD GLUCO SE FOUR TIMES DAILY E10.65 . [id number] Start: 03-06-2024 End: 04-16-2025 Use as directed 4x daily Dx code E10.65 . [id number] Start: 12-08-2024 Blood Sugar Diagnostic (Contour Next Test Strips) strip Start: 09-12-2024 Blood Sugar Diagnostic (Contour Next Test Strips) strip Start: 09-12-2024 Blood Sugar Diagnostic (Contour Next Test Strips) strip Start: 09-12-2024 TEST BLOOD GLUCO SE FOUR TIMES DAILY E10.65 . [id number] Start: 04-17-2025 Goals Date Patient Goal Desired Activity /State Functional Status Date Assessment Result Facility 04-10-2025 Functional status Chair [facility] Work Phone: Mental Status Date Assessment Result Facility 04-10-2025 Cognitive function Voice/Name [facility] Work Phone: Clinical Notes 02-18-2021 to 04-10-2025 Note Date & Type Note Facility 04-10-2025 Discharge summary [facility] 04-10-2025 Note [facility] 04-10-2025 Progress note Note Date/Time April 10, 2025 12:27pm [facility] Medical Records Department [address] [place] [address] Progress Note - Nephrology 04/10/25 1226 MR#: [id number] Acct: [id number] Name: ENOC ARMANDO Rep #:[id number] : 1945 79 From: Denisha tirado MD PCP: Dr. Ryley Jeter MD Status:ADM IN Location: [place] [address] Subjective Subjective no new events Objective Data [...] 82.6 H, Lymph % (Auto) 9.4 L, [place] % (Auto) 7.0, Eos % (Auto) 0.1, [...] stage III (followed by Dr. Albert in [place]), COPD, diabetes mellitus admitted to the hospital [...] Cosigner Signature (if applicable): CC: ~ Signed [facility] Work Phone: 1(306) 528-201906-10-2025 Progress note [facility] Medical Records Department [address] [place] [address] Progress Note - Nephrology 04/10/25 1226 MR#: [id number] Acct: [id number] Name: ENOC ARMANDO Rep #:[id number] : 1945 79 From: Denisha tirado MD PCP: Dr. Ryley Jeter MD Status:ADM IN Location: [place] [address] Subjective Subjective no new events Objective Data [...] 82.6 H, Lymph % (Auto) 9.4 L, [place] % (Auto) 7.0, Eos % (Auto) 0.1, [...] stage III (followed by Dr. Albert in [place]), COPD, diabetes mellitus admitted to the hospital [...] Cosigner Signature (if applicable): CC: ~ Signed [facility]06-09-2025 Progress note Author Grace Arnold [facility] Note Date/Time April 09, 2025 6:52p m [facility] Medical Records Department [address] [place] [address] Progress Note 04/09/25 1501 MR#: [id number] Acct: [id number] Name: ENOC ARMANDO Rep #:[id number] : 1945 79 From: Grace Arnold MD PCP: Dr. Ryley Jeter MD Status:ADM IN Location: [place] [address] Subjective Subjective Patient seen and examined in the presence of his nurse. He had no complaints andhad an uneventful night. Review of systems is otherwise negative. He is requesting to go home if he is not having dialysis. 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 He [...] 77.6 H, Lymph % (Auto) 14.1 L, [place] % (Auto) 7.4, Eos % (Auto) 0.1, [...] Cardiology was consulted and records requested from [place] showed he had cardiac cath at [place] 2 years ago and had 2 blockages [...] prophylaxis: heparin Charges/Coding Visit Charges Inpatient E&M: 23242 Subs Hosp L2 04/09/25 1852 <Electronically signed by Grace Arnold MD> Grace Arnold MD Cosigner Signature (if applicable): CC: ~ Signed [facility] Work Phone: 1(721) 382-285706-09-2025 Progress note [facility] Medical Records Department [address] [place] [address] Progress Note 04/09/25 1501 MR#: [id number] Acct: [id number] Name: ENOC ARMANDO Rep #:[id number] : 1945 79 From: Grace Arnold MD PCP: Dr. Ryley Jeter MD Status:ADM IN Location: [place] [address] Subjective Subjective Patient seen and examined in the presence of his nurse. He had no complaints andhad an uneventful night. Review of systems is otherwise negative. He is requesting to go home if he is not having dialysis. 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 He [...] 77.6 H, Lymph % (Auto) 14.1 L, [place] % (Auto) 7.4, Eos % (Auto) 0.1, [...] Cardiology was consulted and records requested from [place] showed he had cardiac cath at [place] 2 years ago and had 2 blockages [...] prophylaxis: heparin Charges/Coding Visit Charges Inpatient E&M: 65983 Subs Hosp L2 04/09/25 1852 Grace Arnold MD Cosigner Signature (if applicable): CC: ~ Signed [facility]06-09-2025 Progress note Author Denisha Thompson [facility] Note Date/Time April 09, 2025 10:39 am [facility] Medical Records Department [address] [place] [address] Progress Note - Nephrology 04/09/25 1037 MR#: [id number] Acct: [id number] Name: ENOC ARMANDO Rep #:[id number] : 1945 79 From: Denisha tirado MD PCP: Dr. Ryley Jeter MD Status:ADM IN Location: [place] [address] Subjective Subjective No new complaints today. Urine [...] 77.6 H, Lymph % (Auto) 14.1 L, [place] % (Auto) 7.4, Eos % (Auto) 0.1, [...] stage III (followed by Dr. Albert in [place]), COPD, diabetes mellitus admitted to the hospital [...] Cosigner Signature (if applicable): CC: ~ Signed [facility] Work Phone: 1(599) 752-756806-09-2025 Progress note [facility] Medical Records Department [address] [place] [address] Progress Note - Nephrology 04/09/25 1037 MR#: [id number] Acct: [id number] Name: ENOC ARMANDO Rep #:[id number] : 1945 79 From: Denisha tirado MD PCP: Dr. Ryley Jeter MD Status:ADM IN Location: [place] [address] Subjective Subjective No new complaints today. Urine [...] 77.6 H, Lymph % (Auto) 14.1 L, [place] % (Auto) 7.4, Eos % (Auto) 0.1, [...] stage III (followed by Dr. Albert in [place]), COPD, diabetes mellitus admitted to the hospital [...] Cosigner Signature (if applicable): CC: ~ Signed [facility]06-09-2025 Progress note Author [facility] Jaiden [facility] Note Date/Time April 08, 2025 10:57 pm [facility] Medical Records Department [address] [place] [address] Progress Note - Hospitalist 04/08/252256 MR#: [id number] Acct: [id number] Name: ARMANDO,ENOC E Rep #:[id number] : 1945 79 From: Dyana Hwang MD PCP: Dr. Ryley Jeter MD Status:ADM IN Location: [place] [address] Hospitalist Note BS elevated, given ISS, repeat check remains elevated, will give an additional 15 u now and recheck 1-2 hours. 04/08/252256 <Electronically signed by Dyana Hwang MD> Cosigner Signature (if applicable): CC: ~ Signed [facility] Work Phone: 1(616) 807-946406-08-2025 Progress note [facility] Medical Records Department [address] [place] [address] Progress Note - Hospitalist 04/08/252256 MR#: [id number] Acct: [id number] Name: ENOC ARMANDO Rep #:[id number] : 1945 79 From: Dyana Hwang MD PCP: Dr. Ryley Jeter MD Status:ADM IN Location: [place] [address] Hospitalist Note BS elevated, given ISS, repeat check remains elevated, will give an additional 15 u now and recheck1-2 hours. 04/08/252256 Cosigner Signature (if applicable): CC: ~ Signed [facility]06-08-2025 Progress note Author Jose Moore [facility] Note Date/Time April 08, 2025 10:37 am [facility] Medical Records Department [address] [place] [address] Progress Note - Hospitalist 04/08/25 1026 MR#: [id number] Acct: [id number] Name: ENOC ARMANDO Rep #:[id number] : 1945 79 From: Jose lui MD PCP: Dr. Ryley Jeter MD Status:ADM IN Location: [place] [address] Subjective Subjective Feels better today than he [...] 88.0 H, Lymph % (Auto) 7.3 L, [place] % (Auto) 4.2, Eos % (Auto) 0.0, [...] a heart cath 2 years ago at [place] with 2 blockages that could not be [...] DVT: SCDs Charges/Coding Visit Charges Inpatient E&M: 72709 Subs Hosp L2 04/08/25 1037 <Electronically signed by Jose Moore MD> Cosigner Signature (if applicable): CC: ~ Signed [facility] Work Phone: 1(296) 939-319506-08-2025 Progress note [facility] Medical Records Department [address] [place] [address] Progress Note - Hospitalist 04/08/25 1026 MR#: [id number] Acct: [id number] Name: ENOC ARMANDO Rep #:[id number] : 1945 79 From: Jose lui MD PCP: Dr. Ryley Jeter MD Status:ADM IN Location: [place] [address] Subjective Subjective Feels better today than he [...] 88.0 H, Lymph % (Auto) 7.3 L, [place] % (Auto) 4.2, Eos % (Auto) 0.0, [...] a heart cath 2 years ago at [place] with 2 blockages that could not be [...] DVT: SCDs Charges/Coding Visit Charges Inpatient E&M: 42614 Subs Hosp L2 04/08/25 1037 Cosigner Signature (if applicable): CC: ~ Signed [facility]06-07-2025 Progress note Author Nate Forbes [facility] Note Date/Time April 07, 2025 5:18p m [facility] Medical Records Department [address] [place] [address] Progress Note - Creative Intern 04/07/25 1717 MR#: [id number] Acct: [id number] Name: ENOC ARMANDO Rep #:[id number] : 1945 79 From: Nate Forbes MD PCP: Dr. Ryley Jeter MD Status:ADM IN Location: [place] [address] Objective Data Objective Data Vital Signs: Vital [...] mls/hr 04/03/25 05:18 04/06/25 14:45 IV Infused .[id number] PRN Infusion Saline Flush Sodium Chloride 250 mls @ 15 mls/hr 04/03/25 05:18 IV .H60P62Z PRN Additional IVPB Infusion Dextrose 250 mls [...] Hcl 0.4 Mg Capsule PO 0.4 mg Ayla@6028 [facility] Administration Lab / Micro Data 04/07/25 06:25 [...] 79.0 H, Lymph % (Auto) 12.6 L, [place] % (Auto) 8.0, Eos % (Auto) 0.1, [...] per nephrology yesterday. Cont recommendations as per pulmonary/senior research associate note yesterday. We will monitor peripherally over the weekend, but please call us any time if questions or if clinical worsening. Nate Forbes MD 04/07/25 <Electronically signed by Nate Forbes MD> Cosigner Signature (if applicable): CC: ~ Signed [facility] Work Phone: 1([phone]) 473-830706-07-2025 Progress note [facility] Medical Records Department [address] [place] [address] Progress Note - Creative Intern 04/07/251716 MR#: [id number] Acct: [id number] Name: ARMANDO,GARY Ariela Rep #:[id number] : 1945 79 From: Nate Forbes MD PCP: Dr. Ryley Jeter MD Status:ADM IN Location: [place] [address]- 1 Objective Data Objective Data Vital Signs: [...] mls/hr 04/03/25 05:18 04/06/25 14:45 IV Infused .[id number] PRN Infusion Saline Flush Sodium Chloride 250 mls @ 15 mls/hr 04/03/25 05:18 IV .S71D32N PRN Additional IVPB Infusion Dextrose 250 mls [...] 25 Mg Tablet PO 25 mg DAILY DDII Administration Protocol Nitroglycerin 0.4 mg 04/03/25 05:17 [...] Hcl 0.4 Mg Capsule PO 0.4 mg iSmrana@1737 [facility] Administration Lab / Micro Data 04/07/25 [...] 79.0 H, Lymph % (Auto) 12.6 L, [place] % (Auto) 8.0, Eos % (Auto) 0.1, [...] per nephrology yesterday. Cont recommendations as per pulmonary/senior research associate note yesterday. We will monitor peripherally over the weekend, but please call us any time if questions or if clinical worsening. Nate Forbes MD 04/07/25 0091 Cosigner Signature (if applicable): CC: ~ Signed [facility]06-07-2025 Progress note Author Jose Moore [facility] Note Date/Time April 07, 2025 3:15p m [facility] Medical Records Department [address] [place] [address] Progress Note - Hospitalist 04/07/25 1450 MR#: [id number] Acct: [id number] Name: ENOC ARMANDO Rep #:[id number] : 1945 79 From: Jose lui MD PCP: Dr. Ryley Jeter MD Status:ADM IN Location: [place] [address] Subjective Subjective Doing well, no issues overnight. [...] 79.0 H, Lymph % (Auto) 12.6 L, [place] % (Auto) 8.0, Eos % (Auto) 0.1, [...] a cardiac cath 2 years ago at [place] and was told he had 2 blockages which were not amenable to revascularization. Records requested from [place]. Further management as per cardiology. 04/06/2025: Breath [...] as above. * Further records requested from [place] as above * cardiology on board 04/06/2025: Orient to be due to demand ischemia though [...] DVT: SCDs Charges/Coding Visit Charges Inpatient E&M: 57890 Subs Hosp L2 04/07/25 1515 <Electronically signed by Jose Moore MD> Cosigner Signature (if applicable): CC: ~ Signed [facility] Work Phone: 1(858) 123-776106-07-2025 Progress note [facility] Medical Records Department [address] [place] [address] Progress Note - Hospitalist 04/07/25 1450 MR#: [id number] Acct: [id number] Name: ENOC ARMANDO Rep #:[id number] : 1945 79 From: Jose lui MD PCP: Dr. Ryley Jeter MD Status:ADM IN Location: [place] [address] Subjective Subjective Doing well, no issues overnight. [...] 79.0 H, Lymph % (Auto) 12.6 L, [place] % (Auto) 8.0, Eos % (Auto) 0.1, [...] a cardiac cath 2 years ago at [place] and was told he had 2 blockages which were not amenable to revascularization. Records requested from [place]. Further management as per cardiology. 04/06/2025: Breath [...] as above. * Further records requested from [place] as above * cardiology on board 04/06/2025: Orient to be due to demand ischemia though [...] DVT: SCDs Charges/Coding Visit Charges Inpatient E&M: 05354 Subs Hosp L2 04/07/25 1515 Cosigner Signature (if applicable): CC: ~ Signed [facility]06-06-2025 Progress note Author Jose Moore [facility] Note Date/Time April 06, 2025 6:25p m [facility] Medical Records Department [address] [place] [address] Progress Note - Hospitalist 04/06/258 MR#: [id number] Acct: [id number] Name: ENOC ARMANDO Rep #:[id number] : 1945 79 From: Jose lui MD PCP: Dr. Ryley Jeter MD Status:ADM IN Location: [place] [address] Subjective Subjective Doing well, no issues overnight [...] (Auto) 83.3 H, Lymph % (Auto) 9.1L, [place] % (Auto) 7.0, Eos % (Auto) 0.0, [...] Lung findings are grossly unchanged. Reading Location: [facility] Rhythm Strip Rhythm Strip: Sinus Rhythm Rate: [...] a cardiac cath 2 years ago at [place] and was told he had 2 blockages which were not amenable to revascularization. Records requested from [place]. Further management as per cardiology. 04/06/2025: Breath sounds are improving and he is maintaining nasal cannula after dialysis #Elevated cardiac enzymes: * initial troponin was 58, and only peaked at 76. 2D echo as above. * Further records requested from [place] as above * cardiology on board 04/06/2025: Orient to be due to demand ischemia though [...] DVT: Heparin Charges/Coding Visit Charges Inpatient E&M: 54473 Subs Hosp L2 04/06/251824 <Electronically signed by Jose Moore MD> Cosigner Signature (if applicable): CC: ~ Signed [facility] Work Phone: 1([phone]) 883-424206-06-2025 Progress note [facility] Medical Records Department [address] [place] [address] Progress Note - Hospitalist 04/06/251817 MR#: [id number] Acct: [id number] Name: ENOC ARMANDO Rep #:[id number] : 1945 79 From: Jose lui MD PCP: Dr. Ryley Jeter MD Status:ADM IN Location: [place] [address] Subjective Subjective Doing well, no issues overnight [...] (Auto) 83.3 H, Lymph % (Auto) 9.1L, [place] % (Auto) 7.0, Eos % (Auto) 0.0, [...] Lung findings are grossly unchanged. Reading Location: [facility] Rhythm Strip Rhythm Strip: Sinus Rhythm Rate: [...] a cardiac cath 2 years ago at [place] and was told he had 2 blockages which were not amenable to revascularization. Records requested from [place]. Further management as per cardiology. 04/06/2025: Breath sounds are improving and he is maintaining nasal cannula after dialysis #Elevated cardiac enzymes: * initial troponin was 58, and only peaked at 76. 2D echo as above. * Further records requested from [place] as above * cardiology on board 04/06/2025: Orient to be due to demand ischemia though [...] DVT: Heparin Charges/Coding Visit Charges Inpatient E&M: 55685 Subs Hosp L2 04/06/25 1825 Cosigner Signature (if applicable): CC: ~ Signed [facility]06-06-2025 Progress note Author Kalani Gonzalez [facility] Note Date/Time April 06, 2025 4:18p m [facility] Medical Records Department [address] [place] [address] Progress Note - Nephrology 04/06/25 1117 MR#: [id number] Acct: [id number] Name: ENOC ARMANDO Rep #:[id number] : 1945 79 From: Kalani JEFFERS PCP: Dr. Ryley Jeter MD Status:ADM IN Location: [place] [address] Documented by User: AURY Davison 04/06/25 11:24 [...] Sl. Cloudy, Urine pH 5.0, Ur Specific [place] 1.020, Urine Protein 100 H, Urine Glucose [...] (Auto) 83.3 H, Lymph % (Auto) 9.1L, [place] % (Auto) 7.0, Eos % (Auto) 0.0, [...] Lung findings are grossly unchanged. Reading Location: [facility] Rhythm Strip Rhythm Strip: Sinus Rhythm Rate: [...] stage III (followed by Dr. Albert in [place]), COPD, diabetes mellitus admitted to the hospital [...] stage III (followed by Dr. Albert in [place]), COPD, diabetes mellitus admitted to the hospital [...] and plan reviewed with Dr. Thompson. jr DISABILITY SPECIALIST. BAKARI is typically short lived. hopefully will recover soon. HD today. will reevaluate tomorrow 04/06/25 1124 <Electronically signed by Kalani JEFFERS> Cosigner Signature (if applicable): 04/06/25 1618 <Electronically signed by Denisha Thompson MD> CC: ~ Signed [facility] Work Phone: 1([phone]) 826-227706-06-2025 Progress note [facility] Medical Records Department [address] [place] [address] Progress Note - Nephrology 04/06/25 1117 MR#: [id number] Acct: [id number] Name: ENOC ARMANDO Rep #:[id number] : 1945 79 From: Kalani JEFFERS PCP: Dr. Ryley Jeter MD Status:ADM IN Location: [place] [address] Documented by User: AURY Davison 04/06/25 11:24 [...] Sl. Cloudy, Urine pH 5.0, Ur Specific [place] 1.020, Urine Protein 100 H, Urine Glucose [...] (Auto) 83.3 H, Lymph % (Auto) 9.1L, [place] % (Auto) 7.0, Eos % (Auto) 0.0, [...] Lung findings are grossly unchanged. Reading Location: [facility] Rhythm Strip Rhythm Strip: Sinus Rhythm Rate: [...] stage III (followed by Dr. Albert in [place]), COPD, diabetes mellitus admitted to the hospital [...] stage III (followed by Dr. Albert in [place]), COPD, diabetes mellitus admitted to the hospital [...] and plan reviewed with Dr. Thompson. 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 BAKARI is typically short lived. hopefully will recover soon. HD today. will reevaluate tomorrow 04/06/25 1124 Cosigner Signature (if applicable): 04/06/25 1618 CC: ~ Signed [facility]06-06-2025 Progress note Author Smooth Luis [facility] Note Date/Time April 06, 2025 11:24 am [facility] Medical Records Department [address] [place] [address] Progress Note - Surgery 04/06/25 1123 MR#: [id number] Acct: [id number] Name: ENOC ARMANDO Rep #:[id number] : 1945 79 From: Smooth Luis MD PCP: Dr. Ryley Jeter MD Status:ADM IN Location: [place] [address] Subjective Subjective Patient seen on rounds this [...] Sl. Cloudy, Urine pH 5.0, Ur Specific [place] 1.020, Urine Protein 100 H, Urine Glucose [...] (Auto) 83.3 H, Lymph % (Auto) 9.1L, [place] % (Auto) 7.0, Eos % (Auto) 0.0, [...] Lung findings are grossly unchanged. Reading Location: [facility] Rhythm Strip Rhythm Strip: Sinus Rhythm Rate: [...] Cosigner Signature (if applicable): CC: ~ Signed [facility] Work Phone: 1(344) 917-732206-06-2025 Progress note Author Landry Fagan [facility] Note Date/Time April 06, 2025 9:42a m [facility] Medical Records Department [address] [place] [address] Progress Note - Creative Intern 04/06/25 0938 MR#: [id number] Acct: [id number] Name: ENOC ARMANDO Rep #:[id number] : 1945 79 From: Landry Fagan PCP: Dr. Ryley Jeter MD Status:ADM IN Location: [place] [address] Assessment & Plan Assessment/Plan (1) Acute hypoxic [...] without intubation This note was generated with [employer] (formerly [employer]) dictation software. It may contain incorrectwords, spelling, [...] Sl. Cloudy, Urine pH 5.0, Ur Specific [place] 1.020, Urine Protein 100 H, Urine Glucose [...] (Auto) 83.3 H, Lymph % (Auto) 9.1L, [place] % (Auto) 7.0, Eos % (Auto) 0.0, [...] Lung findings are grossly unchanged. Reading Location: [facility] Rhythm Strip Rhythm Strip: Sinus Rhythm Rate: [...] affect normal Charges/Coding Visit Charges Inpatient E&M: 68140 Subs Hosp L2 04/06/25 0942 <Electronically signed by Landry Fagan DO> Cosigner Signature (if applicable): CC: ~ Signed [facility] Work Phone: 1(299) 699-176706-06-2025 Progress note [facility] Medical Records Department [address] [place] [address] Progress Note - Surgery 04/06/25 1123 MR#: [id number] Acct: [id number] Name: ENOC ARMANDO Rep #:[id number] : 1945 79 From: Smooth Luis MD PCP: Dr. Ryley Jeter MD Status:ADM IN Location: [place] [address] Subjective Subjective Patient seen on rounds this [...] Sl. Cloudy, Urine pH 5.0, Ur Specific [place] 1.020, Urine Protein 100 H, Urine Glucose [...] (Auto) 83.3 H, Lymph % (Auto) 9.1L, [place] % (Auto) 7.0, Eos % (Auto) 0.0, [...] Lung findings are grossly unchanged. Reading Location: [facility] Rhythm Strip Rhythm Strip: Sinus Rhythm Rate: [...] Cosigner Signature (if applicable): CC: ~ Signed [facility]06-06-2025 Progress note [facility] Medical Records Department [address] [place] [address] Progress Note - Creative Intern 04/06/25 0938 MR#: [id number] Acct: [id number] Name: ENOC ARMANDO Rep #:[id number] : 1945 79 From: Landry Fagan DO PCP: Dr. Ryley Jeter MD Status:ADM IN Location: [facility] [id number]- 1 Assessment & Plan Assessment/Plan (1) Acute [...] without intubation This note was generated with Ch[employer] (formerly [employer]) dictation software. It may contain incorrectwords, spelling, [...] Sl. Cloudy, Urine pH 5.0, Ur Specific [place] 1.020, Urine Protein 100 H, Urine Glucose [...] (Auto) 83.3 H, Lymph % (Auto) 9.1L, [place] % (Auto) 7.0, Eos % (Auto) 0.0, [...] Lung findings are grossly unchanged. Reading Location: [facility] Rhythm Strip Rhythm Strip: Sinus Rhythm Rate: [...] affect normal Charges/Coding Visit Charges Inpatient E&M: 22579 Subs Hosp L2 04/06/25 0942 Cosigner Signature (if applicable): CC: ~ Signed [facility]06-05-2025 Consult note Author Smooth Luis [facility] Note Date/Time April 05, 2025 6:10p m [facility] Medical Records Department [address] [place] [address] Consultation - Surgical 04/05/25 1806 MR#: [id number] Acct: [id number] Name: ENOC ARMANDO Rep #:[id number] : 1945 79 From: Smooth Luis MD PCP: Dr. Ryley Jeter MD Status:ADM IN Location: [facility] [id number]- 1 Assessment & Plan Assessment/Plan (1) CKD (chronic kidney disease), stage III: QUALIFIERS: Chronic kidney disease stage 3 subtype: stage 3b (GFR 30-44) Qualified Code(s): N18.32 - Chronic kidney disease, stage 3b PLAN: Plan Patient is an 79-year-old male with worsening renal function. Bench Mover is recommending temporary dialysis. Dialysis catheter was [...] who presented to the emergency department at [facility] several days ago with history of worsening [...] obtained to insert the temporary dialysis catheter. [facility] Medical History Chronic anemia Tobacco use COPD [...] AdvReac Other Verified 04/03/25 00:16 (Glucocorticoids) (steroids) Liuhafm-WMO-VeA Reductase AdvReac Other Verified 04/03/25 00:16 Inhibitor (Bqxpxpm-Qgb-Uzt Reductase Inhibitor) Family History Mother COPD (chronic [...] 85.5 H, Lymph % (Auto) 5.7 L, [place] % (Auto) 7.7, Eos % (Auto) 0.0, [...] Sl. Cloudy, Urine pH 5.0, Ur Specific [place] 1.020, Urine Protein 100 H, Urine Glucose [...] to prior. Correlate with PSA. Reading Location: [facility] Charges/Coding Visit Charges Inpatient E&M: 54500 Init Hosp L3 04/05/25 1810 <Electronically signed by Smooth Luis MD> Cosigner Signature (if applicable): CC: Dr. Ryley Jeter MD~ Signed [facility] Work Phone: 1(600) 143-642406-05-2025 Radiology Diagnostic study note [facility] Imaging Services [address] [place], [place] [address] CXR for Line Placement MR#: [id number] Acct: [id number] Name: ENOC ARMANDO Rep #: [id number] : 1945 M 79 From: Chely Batista MD PCP: Dr. Ryley Jeter MD Status: ADM IN Study:CXR for Line Placement Date of Exam: 04/05/25 Exam# [id number] Ordering Dr: St dany Luis MD PROCEDURE: CXR FOR LINE PLACEMENT 04/05/2025 REASON FOR EXAM: TEMP HD CATH INSERTION ON RIGHT TECHNIQUE: Single frontal view of the chest COMPARISON: 04/03/2025 RAD/CXR for Line Placement IMPRESSION: Interval insertion of right IJ line with tip at SVC, likely in appropriate position. Lung findings are grossly unchanged. Reading Location: [facility] CC: Dr. Ryley Jeter MD; Dr. Smooth Luis MD ~ Child Guidance Counselor: Signed [facility]06-05-2025 Progress note Author Grace Arnold [facility] Note Date/Time April 05, 2025 5:19p m [facility] Medical Records Department [address] [place] [address] Progress Note 04/05/25 1212 MR#: [id number] Acct: [id number] Name: ENOC ARMANDO Rep #:[id number] : 1945 79 From: Garce Arnold MD PCP: Dr. Ryley Jeter MD Status:ADM IN Location: [facility] [id number]- 1 Subjective Subjective Patient seen and examined. [...] 85.5 H, Lymph % (Auto) 5.7 L, [place] % (Auto) 7.7, Eos % (Auto) 0.0, [...] to prior. Correlate with PSA. Reading Location: [facility] Rhythm Strip Rhythm Strip: Sinus Rhythm Rate: [...] a cardiac cath 2 years ago at [place] and was told he had 2 blockages which were not amenable to revascularization. Records requested from [place]. Further management as per cardiology. * #Elevated cardiac enzymes: * initial troponin was 58, and only peaked at 76. 2D echo as above. * Further records requested from [place] as above * cardiology on board * [...] heparin sq. Charges/Coding Visit Charges Inpatient E&M: 68799 Subs Hosp L3 04/05/25 1719 <Electronically signed by Grace Arnold MD> Grace Arnold MD Cosigner Signature (if applicable): CC: ~ Signed [facility] Work Phone: 1(650) 393-260706-05-2025 Procedure note [facility] Medical Records Department [address] [place] [address] Operative Report 04/05/25 1810 MR#: [id number] Acct: [id number] Name: ENOC ARMANDO Rep #:[id number] : 1945 79 From: Smooth Luis MD PCP: Dr. Ryley Jeter MD Status:ADM IN Location: [facility] UAR020- 1 Problems Associated Problem List Diagnoses (1) CKD (chronic kidney disease), stage III: Procedures Cardiovascular CF Procedures 33xxx-39xxx: 67967 Insert tunneled cv cath Operative Report (Standard) Operative Information Date of Procedure: 04/05/25 Pre-Operative Diagnosis: Renal failure Post-Operative Diagnosis: Renal failure Surgery/Procedure Performed: Right internal jugular temporary dialysis catheter insertion with ultrasound service assistant: No Type of Anesthesia: Local Procedure Start Time: 17:00 Procedure Stop Time: 17:20 Select all DRAINS/GRAFTS/IMPLANTS that apply: Prosthetic device Prosthetic device details: 12 Citizen [place] temporary dialysis catheter Estimated Blood Loss: 15 [...] Nolen MD; Dr. Nina Lee MD~ Signed [facility]06-05-2025 Consult note [facility] Medical Records Department [address] [place] [address] Consultation - Surgical 04/05/25 1806 MR#: [id number] Acct: [id number] Name: ENOC ARMANDO Rep #:[id number] : 1945 79 From: Smooth Luis MD PCP: Dr. Ryley Jeter MD Status:ADM IN Location: [place] [id number]- 1 Assessment & Plan Assessment/Plan (1) CKD (chronic kidney disease), stage III: QUALIFIERS: Chronic kidney disease stage 3 subtype: stage 3b (GFR 30-44) Qualified Code(s): N18.32 - Chronic kidney disease, stage 3b PLAN: Plan Patient is an 79-year-old male with worsening renal function. Bench Mover is recommending temporary dialysis. Dialysis catheter was [...] who presented to the emergency department at [facility] several days ago with history of worsening [...] obtained to insert the temporary dialysis catheter. [facility] Medical History Chronic anemia Tobacco use COPD [...] AdvReac Other Verified 04/03/25 00:16 (Glucocorticoids) (steroids) Lkbhimb-UAO-BjK Reductase AdvReac Other Verified 04/03/25 00:16 Inhibitor (Sarwykq-Str-Thq Reductase Inhibitor) Family History Mother COPD (chronic [...] 85.5 H, Lymph % (Auto) 5.7 L, [place] % (Auto) 7.7, Eos % (Auto) 0.0, [...] Sl. Cloudy, Urine pH 5.0, Ur Specific [place] 1.020, Urine Protein 100 H, Urine Glucose [...] to prior. Correlate with PSA. Reading Location: [facility] Charges/Coding Visit Charges Inpatient E&M: 18593 Init Hosp L3 04/05/25 1810 Cosigner Signature (if applicable): CC: Dr. Ryley Jeter MD~ Signed [facility]06-05-2025 Progress note Author Denisha Thompson [facility] Note Date/Time April 05, 2025 3:20p m [facility] Medical Records Department [address] [place] [address] Progress Note - Nephrology 04/05/25 1518 MR#: [id number] Acct: [id number] Name: ENOC ARMANDO Rep #:[id number] : 1945 79 From: Denisha tirado MD PCP: Dr. Ryley Jeter MD Status:ADM IN Location: [place] [address] Subjective Subjective he is on bipap Objective [...] 85.5 H, Lymph % (Auto) 5.7 L, [place] % (Auto) 7.7, Eos % (Auto) 0.0, [...] Sl. Cloudy, Urine pH 5.0, Ur Specific [place] 1.020, Urine Protein 100 H, Urine Glucose [...] to prior. Correlate with PSA. Reading Location: [facility] Rhythm Strip Rhythm Strip: Sinus Rhythm Rate: [...] stage III (followed by Dr. Albert in [place]), COPD, diabetes mellitus admitted to the hospital [...] Cosigner Signature (if applicable): CC: ~ Signed [facility] [facility] Work Phone: 1(139) 775-676806-05-2025 Progress note [facility] Medical Records Department [address] [place] [address] Progress Note 04/05/25 1212 MR#: [id number] Acct: [id number] Name: ENOC ARMANDO Rep #:[id number] : 1945 79 From: Grace Arnold MD PCP: Dr. Ryley Jeter MD Status:ADM IN Location: [place] [address] Subjective Subjective Patient seen and examined. He [...] 85.5 H, Lymph % (Auto) 5.7 L, [place] % (Auto) 7.7, Eos % (Auto) 0.0, [...] to prior. Correlate with PSA. Reading Location: [id number] Rhythm Strip Rhythm Strip: Sinus Rhythm Rate: [...] a cardiac cath 2 years ago at [place] and was told he had 2 blockages which were not amenable to revascularization. Records requested from [place]. Further management as per cardiology. * #Elevated cardiac enzymes: * initial troponin was 58, and only peaked at 76. 2D echo as above. * Further records requested from [place] as above * cardiology on board * [...] heparin sq. Charges/Coding Visit Charges Inpatient E&M: 18302 Subs Hosp L3 04/05/25 1719 Grace Arnold MD Cosigner Signature (if applicable): CC: ~ Signed [facility]06-05-2025 Progress note Author Barbie Martin [facility] Note Date/Time April 05, 2025 3:10p m [facility] Medical Records Department [address] [place] [address] Progress Note - Cardiology 04/05/25 1459 MR#: [id number] Acct: [id number] Name: ENOC ARMANDO Rep #:[id number] : 1945 79 From: Barbie gibson MD PCP: Dr. Ryley Jeter MD Status:ADM IN Location: [place] [address] Subjective Subjective Patient denies any chest pain. [...] 85.5 H, Lymph % (Auto) 5.7 L, [place] % (Auto) 7.7, Eos % (Auto) 0.0, [...] Sl. Cloudy, Urine pH 5.0, Ur Specific [place] 1.020, Urine Protein 100 H, Urine Glucose [...] 85.5 H, Lymph % (Auto) 5.7 L, [place] % (Auto) 7.7, Eos % (Auto) 0.0, [...] Sl. Cloudy, Urine pH 5.0, Ur Specific [place] 1.020, Urine Protein 100 H, Urine Glucose [...] to prior. Correlate with PSA. Reading Location: [facility] Physical Exam Const alert HEENT [...] catheterization within the last 2 years at [place]. He also had 2 blockages that were [...] be willing to see him in [facility] in 7to 10 days after discharge. Charges/Coding Visit Charges Inpatient E&M: 27561 Subs Hosp L2 04/05/25 1510 <Electronically signed by Barbie Martin MD> Cosigner Signature (if applicable): CC: ~ Signed [facility] Work Phone: 1(410) 743-270306-05-2025 Progress note [facility] Medical Records Department [address] [place] [address] Progress Note - Nephrology 04/05/25 1518 MR#: [id number] Acct: [id number] Name: ENOC ARMANDO Rep #:[id number] : 1945 79 From: Denisha tirado MD PCP: Dr. Ryley Jeter MD Status:ADM IN Location: [place] [address] Subjective Subjective he is on bipap Objective [...] 85.5 H, Lymph % (Auto) 5.7 L, [place] % (Auto) 7.7, Eos % (Auto) 0.0, [...] Sl. Cloudy, Urine pH 5.0, Ur Specific [place] 1.020, Urine Protein 100 H, Urine Glucose [...] to prior. Correlate with PSA. Reading Location: [id number] Rhythm Strip Rhythm Strip: Sinus Rhythm Rate: [...] stage III (followed by Dr. Albert in [place]), COPD, diabetes mellitus admitted to the hospital [...] Cosigner Signature (if applicable): CC: ~ Signed [facility]06-05-2025 Progress note [facility] Medical Records Department [address] [facility] [place] [address] Progress Note - Cardiology 04/05/25 6237 MR#: [id number] Acct: [id number] Name: ENOC ARMANDO Rep #:[id number] : 1945 79 From: Barbie gibson MD PCP: Dr. Ryley Jeter MD Status:ADM IN Location: [place] [address] Subjective Subjective Patient denies any chest pain. [...] 85.5 H, Lymph % (Auto) 5.7 L, [place] % (Auto) 7.7, Eos % (Auto) 0.0, [...] Sl. Cloudy, Urine pH 5.0, Ur Specific [place] 1.020, Urine Protein 100 H, Urine Glucose [...] 85.5 H, Lymph % (Auto) 5.7 L, [place] % (Auto) 7.7, Eos % (Auto) 0.0, [...] Sl. Cloudy, Urine pH 5.0, Ur Specific [place] 1.020, Urine Protein 100 H, Urine Glucose [...] to prior. Correlate with PSA. Reading Location: [facility] Physical Exam Const alert HEENT [...] catheterization within the last 2 years at [place].He also had 2 blockages that were not [...] be willing to see him in [facility] in 7to 10 days after discharge. Charges/Coding Visit Charges Inpatient E&M: 64651 Subs Hosp L2 04/05/25 1510 Cosigner Signature (if applicable): CC: ~ Signed [facility]06-05-2025 Consult note Author Kalani Gonzalez [facility] Note Date/Time April 05, 2025 10:03 am [facility] Medical Records Department [address] [place] [address] Consultation - Nephrology 04/04/25 1518 MR#: [id number] Acct: [id number] Name: ENOC ARMANDO Rep #:[id number] : 1945 79 From: Kalani arreola NP-C PCP: Dr. Ryley Jeter MD Status:ADM IN Location: [place] [address] Assessment & Plan Assessment/Plan (1) MADONNA (acute kidney injury): (2) CKD (chronic kidney disease), stage III: QUALIFIERS: Chronic kidney disease stage 3 subtype: stage 3b (GFR 30-44) Qualified Code(s): N18.32 - Chronic kidney disease, stage 3b (3) Acute hypoxic respiratory failure: PLAN: Plan This is an 79-year-old male with past medical history significant for hypertension, CKD stage III (followed by Dr. Albert in [place]), COPD, diabetes mellitus admitted to the hospital [...] has been following with Dr. Ayanna Albert, electroplating worker in [place] for history of CKD. Baseline creatinine has been around 1.8 mg/dL range. Patient denies any new medications before hospitalization. Denies any recent nausea, vomiting or diarrhea. Denies any urinary habitus changes. No NSAIDs. [facility] Medical History (Updated 04/04/25 @ 15:23 by [...] AdvReac Other Verified 04/03/25 00:16 (Glucocorticoids) (steroids) Hteluvd-EQY-LzN Reductase AdvReac Other Verified 04/03/25 00:16 Inhibitor (Dpgqbxl-Gxx-Lbc Reductase Inhibitor) Family History Mother COPD (chronic [...] (Auto) 90.4 H, Lymph % (Auto) 4.9L, [place] % (Auto) 4.0, Eos % (Auto) 0.0, [...] Rhythm Strip: Sinus Rhythm Rate: 86 04/04/25 3454 <Electronically signed by Kalani Trzcinski LEAD ESTHETICIAN-C> Cosigner Signature (if applicable): 04/05/25 1003 <Electronically signed by Denisha Thompson MD> CC: Dr. Ryley Jeter MD~ Signed [facility] Work Phone: 1(592) [phone] Progress note Author Landry Fagan [facility] Note Date/Time April 05, 2025 9:30a m [facility] Medical Records Department [address] [place] [address] Progress Note - Creative Intern 04/05/25 0819 MR#: [id number] Acct: [id number] Name: ENOC ARMANDO Rep #:[id number] : 1945 79 From: Landry Fagan DO PCP: Dr. Ryley Jeter MD Status:ADM IN Location: [place] [address] Assessment & Plan Assessment/Plan (1) Acute hypoxic [...] 85.5 H, Lymph % (Auto) 5.7 L, [place] % (Auto) 7.7, Eos % (Auto) 0.0, [...] to prior. Correlate with PSA. Reading Location: [facility] Rhythm Strip Rhythm Strip: Sinus [...] affect normal Charges/Coding Visit Charges Inpatient E&M: 47437 Subs Hosp L2 04/05/25 0930 <Electronically signed by Landry Fagan DO> Cosigner Signature (if applicable): CC: ~ Signed [facility] Work Phone: 1(220) 619-354606-05-2025 Consult note [facility] Medical Records Department [address] [place] [address] Consultation - Nephrology 04/04/25 1518 MR#: [id number] Acct: [id number] Name: ENOC ARMANDO Rep #:[id number] : 1945 79 From: Kalani arreola LEAD ESTHETICIAN-C PCP: Dr. Ryley Jeter MD Status:ADM IN Location: [place] [id number]- Assessment & Plan Assessment/Plan (1) MADONNA (acute kidney injury): (2) CKD (chronic kidney disease), stage III: QUALIFIERS: Chronic kidney disease stage 3 subtype: stage 3b (GFR 30-44) Qualified Code(s): N18.32 - Chronic kidney disease, stage 3b (3) Acute hypoxic respiratory failure: PLAN: Plan This is an 79-year-old male with past medical history significant for hypertension, CKD stage III (followed by Dr. Albert in [place]), COPD, diabetes mellitus admitted to the hospital [...] has been following with Dr. Ayanna Albert, electroplating worker in [place] for history of CKD. Baseline creatinine has been around 1.8 mg/dL range. Patient denies any new medications before hospitalization. Denies any recent nausea, vomiting or diarrhea. Denies any urinary habitus changes. No NSAIDs. [facility] Medical History (Updated 04/04/25 @ 15:23 by [...] AdvReac Other Verified 04/03/25 00:16 (Glucocorticoids) (steroids) Rrahxie-KJK-QuW Reductase AdvReac Other Verified 04/03/25 00:16 Inhibitor (Twbqghn-Djy-Hvf Reductase Inhibitor) Family History Mother COPD (chronic [...] (Auto) 90.4 H, Lymph % (Auto) 4.9L, [place] % (Auto) 4.0, Eos % (Auto) 0.0, [...] 1003 CC: Dr. Ryley Jeter MD~ Signed [facility]06-05-2025 Progress note [facility] Medical Records Department [address] [place] [address] Progress Note - Creative Intern 04/05/25 0819 MR#: [id number] Acct: [id number] Name: ENOC ARMANDO Rep #:[id number] : 1945 79 From: Landry Fagan DO PCP: Dr. Ryley Jeter MD Status:ADM IN Location: [place] [address] Assessment & Plan Assessment/Plan (1) Acute hypoxic [...] without intubation This note was generated with [employer] (formerly [employer]) dictation software. It may contain incorrectwords, spelling, [...] 85.5 H, Lymph % (Auto) 5.7 L, [place] % (Auto) 7.7, Eos % (Auto) 0.0, [...] to prior. Correlate with PSA. Reading Location: [facility] Rhythm Strip Rhythm Strip: Sinus [...] affect normal Charges/Coding Visit Charges Inpatient E&M: 09085 Subs Hosp L2 04/05/25 0930 Cosigner Signature (if applicable): CC: ~ Signed [facility]06-05-2025 Radiology Diagnostic study note [facility] Imaging Services [address] [place] [address] Kidney and Bladder MR#: [id number] Acct: [id number] Name: ENOC ARMANDO Rep #: [id number] : 1945 M 79 From: Demetria Mahoney MD PCP: Dr. Ryley Jeter MD Status: ADM IN Study:Kidney and Bladder Date of Exam: 0 04/04/25 Exam# [id number] Ordering Dr: Kesha Arnold MD PROCEDURE: KIDNEY [...] to prior. Correlate with PSA. Reading Location: [facility] CC: Dr. Ryley Jeter MD; Dr. Grace Arnold MD ~ Child Guidance Counselor: Signed [facility]06-04-[address] [facility] Note Date/Time April 04, 2025 5:42p m [facility] Medical Records Department [address] [place] [address] Progress Note 04/04/25 1121 MR#: [id number] Acct: [id number] Name: ENOC ARMANDO Rep #:[id number] : 1945 79 From: Grace Arnold MD [...] (Auto) 90.4 H, Lymph % (Auto) 4.9L, [place] % (Auto) 4.0, Eos % (Auto) 0.0, [...] a cardiac cath 2 years ago at [place] and was told he had 2 blockages which were not amenable to revascularization. Records requested from [place]. Further management as per cardiology. * #Elevated cardiac enzymes: * initial troponin was 58, and only peaked at 76. 2D echo as above. * Further records requested from [place] as above * cardiology on board * [...] heparin sq. Charges/Coding Visit Charges Inpatient E&M: 51387 [facility] Hosp L3 04/04/25 8764 <Electronically signed by Grace Arnold MD> Grace Arnold MD Cosigner Signature (if applicable): CC: ~ Signed [facility] Work Phone: 1(678) 367-214606-04-2025 Progress note [facility] Medical Records Department [address] [place] [address] Progress Note 04/04/25 1121 MR#: [id number] Acct: [id number] Name: ENOC ARMANDO Rep #:[id number] : 1945 79 From: Grace Arnold MD [...] (Auto) 90.4 H, Lymph % (Auto) 4.9L, [place] % (Auto) 4.0, Eos % (Auto) 0.0, [...] a cardiac cath 2 years ago at [place] and was toldhe had 2 blockages which were not amenable to revascularization. Records requested from [place]. Further management as per cardiology. * #Elevated cardiac enzymes: * initial troponin was 58, and only peaked at 76. 2D echo as above. * Further records requested from [place] as above * cardiology on board * [...] heparin sq. Charges/Coding Visit Charges Inpatient E&M: 00743 Subs Hosp L3 04/04/25 1742 Grace Arnold MD Cosigner Signature (if applicable): CC: ~ Signed [facility]06-04-2025 Progress note Author Donte Callum [facility] Note Date/Time April 04, 2025 2:56p [facility] Medical Records Department [address] [place] [address] Progress Note - Creative Intern 04/04/25 1257 MR#: [id number] Acct: [id number] Name: ENOC ARMANDO Rep #:[id number] : 1945 79 From: Donte Silver PCP: [...] mls @ 15 mls/hr 04/03/25 05:18 IV .[id number] PRN Saline Flush Sodium Chloride 250 mls @ 15 mls/hr 04/03/25 05:18 IV .J59D64I PRN Additional IVPB Infusion Dextrose 250 mls @ 999 mls/hr 04/03/25 13:17 Dextrose 10%-Water IV .Q16M PRN Hypoglycemic Protocol Protocol Dextrose/Sodium Chloride 1,000 mls @ 60 mls/hr 04/03/25 22:35 04/03/25 23:16 IV 60 mls/hr .W29P89O DIDI Administration Insulin Glargine 15 unit 04/04/25 [...] 25 Mg Tablet PO 25 mg DAILY [facility] Administration Protocol Nitroglycerin 0.4 mg 04/03/25 05:17 [...] 20 Mg Tablet PO 04/10/25 08:01 BREAKFAST [facility] Prochlorperazine Edisylate 5 mg 04/03/25 05:17 Prochlorperazine [...] 0.4 Mg Capsule PO 0.4 mg TuTa@1730 [facility] Administration Lab / Micro Data 04/04/25 03:15 [...] (Auto) 90.4 H, Lymph % (Auto) 4.9L, [place] % (Auto) 4.0, Eos % (Auto) 0.0, [...] this encounter was done via Telemedicine 04/04/25 3936 <Electronically signed by Donte Nolen MD> Cosigner Signature (if applicable): CC: ~ Signed [facility] Work Phone: [phone]) 224-693906-04-2025 Progress note [facility] Medical Records Department [address] [place] [address] Progress Note - Creative Intern 04/04/25 1257 MR#: [id number] Acct: [id number] Name: ENOC ARMANDO Rep #:[id number] : 1945 79 From: Donte Silver PCP: [...] mls @ 15 mls/hr 04/03/25 05:18 IV .F90G53Q PRN Saline Flush Sodium Chloride 250 mls @ 15 mls/hr 04/03/25 05:18 IV .S76B03B PRN Additional IVPB Infusion Dextrose 250 mls @ 999 mls/hr 04/03/25 13:17 Dextrose 10%-Water IV .Q16M PRN Hypoglycemic Protocol Protocol Dextrose/Sodium Chloride 1,000 mls @ 60 mls/hr 04/03/25 22:35 04/03/25 23:16 IV 60 mls/hr .S01U38B DIDI Administration Insulin Glargine 15 unit 04/04/25 [...] Hcl 0.4 Mg Capsule PO 0.4 mg Ayla@6836 DIDI Administration Lab / Micro Data 04/04/25 [...] (Auto) 90.4 H, Lymph % (Auto) 4.9L, [place] % (Auto) 4.0, Eos % (Auto) 0.0, [...] this encounter was done via Telemedicine 04/04/25 9331 Cosigner Signature (if applicable): CC: ~ Signed [facility]06-04-2025 Progress note Author Breezy Campbell [facility] Note Date/Time April 04, 2025 10:35 am [facility] Medical Records Department [address] [place] [address] Progress Note - Cardiology 04/04/25 1028 MR#: [id number] Acct: [id number] Name: ENOC ARMANDO Rep #:[id number] : 1945 79 From: Breezy Campbell MD PCP: Dr. Ryley Jeter MD Status:ADM IN Location: ICU ICU04-1 Subjective Subjective Has not been able to obtain records from [place] for his catheterization within the past 2 [...] (Auto) 90.4 H, Lymph % (Auto) 4.9L, [place] % (Auto) 4.0, Eos % (Auto) 0.0, [...] 90.4 H, Lymph % (Auto) 4.9 L, [place] % (Auto) 4.0, Eos % (Auto) 0.0, [...] catheterization within the last 2 years at [place]. He also had 2 blockages that were [...] be willing to see him in [facility] in 7to 10 days after discharge. Charges/Coding Visit Charges Inpatient E&M: 80146 Subs Hosp L3 04/04/25 1035 <Electronically signed by Breezy Campbell MD> Cosigner Signature (if applicable): CC: ~ Signed [facility] Work Phone: 1(759) 115-537506-04-2025 Progress note [facility] Medical Records Department [address] [place] [address] Progress Note - Cardiology 04/04/25 1028 MR#: [id number] Acct: [id number] Name: ENOC ARMANDO Rep #:[id number] : 1945 79 From: Breezy Campbell MD PCP: Dr. Ryley Jeter MD Status:ADM IN Location: ICU ICU04-1 Subjective Subjective Has not been able to obtain records from [place] for his catheterization within the past 2 [...] (Auto) 90.4 H, Lymph % (Auto) 4.9L, [place] % (Auto) 4.0, Eos % (Auto) 0.0, [...] 90.4 H, Lymph % (Auto) 4.9 L, [place] %(Auto) 4.0, Eos % (Auto) 0.0, Baso [...] catheterization within the last 2 years at [place]. He also had 2 blockages that were [...] be willing to see him in [facility] in 7to 10 days after discharge. Charges/Coding Visit Charges Inpatient E&M: 61194 Subs Hosp 04/04/25 1035 Cosigner Signature (if applicable): CC: ~ Signed [facility]06-03-2025 Progress note Author Grace Arnold [facility] Note Date/Time April 03, 2025 5:08p m [facility] Medical Records Department [address] [place] [address] Progress Note 04/03/25 1352 MR#: [id number] Acct: [id number] Name: ENOC ARMANDO Rep #:[id number] : 1945 79 From: Grace Arnold MD [...] 76.4 H, Lymph % (Auto) 13.5 L, [place] % (Auto) 7.0, Eos % (Auto) 1.9, [...] (Auto) 94.8 H, Lymph % (Auto) 3.3L, [place] % (Auto) 1.1, Eos % (Auto) 0.0, [...] possibly multifocal congestion and/or pneumonia. Reading Location: [place] [address] Chest CTA 04/03/25 02:34 IMPRESSION: Mild bilateral pleural effusions. Passive atelectatic airspace disease/airspace consolidations of the lower lobes. Bilateral chronic perihilar interstitial pulmonary thickening with associated mild multifocal ground-glass densities, possibly superimposed pneumonia. Mild diffuse spondylosis. No CT evidence of pulmonary embolus or aortic dissection. Reading Location: [place] [address] Echocardiogram 04/03/25 05:55 Interpretation Summary Mid to [...] 32 mins Charges/Coding Visit Charges Inpatient E&M: 61607 PROLNG IP/OBS E/M EA 15 MIN 04/03/25 [...] Signature (if applicable): Date cc: ~* Signed [facility] Work Phone: 1(568) 348-394506-03-2025 Consult note Author Breezy Campbell [facility] Note Date/Time April 03, 2025 4:52p m [facility] Medical Records Department [address] [place] [address] Consultation - Cardiology 04/03/25 1630 MR#: [id number] Acct: [id number] Name: ENOC ARMANDO Rep #:[id number] : 1945 79 From: Breezy Campbell MD [...] left heart catheterization a year ago in [place] we will try to obtain those records [...] I will try to obtain records from [place] to see if this is new but [...] Will try to obtain cardiovascular records from [place] from last year. 2. Continue current medical therapy. 3. Will follow along with you as the patient recovers from his pulmonary insufficiency we may need to alter his cardiovascular medical therapy. 4. The patient does not routinely see a beauty school instructor by his report. We will behappy to [...] to distal anterior wall and inferior posterior funetes. The patient reports to me that last year he underwentleft heart catheterization in [place] and that revealed 2 blocked arteries that had natural bypasses build up around him and he was treated medically. The patient specifically denies any chest pain. He denies any lower extremity edema. The patient's complaint was really dyspnea on exertion. He is now beingtreated with IV antibiotics and ventilatory support. The patient is DNR CCA. [facility] Medical History (Updated 04/03/25 @ 16:49 by [...] AdvReac Other Verified 04/03/25 00:16 (Glucocorticoids) (steroids) Bewuhnf-PCM-ApM Reductase AdvReac Other Verified 04/03/25 00:16 Inhibitor (Firsilt-Jxs-Zgz Reductase Inhibitor) Family History Mother COPD (chronic [...] 20% Risk Charges/Coding Visit Charges Inpatient E&M: 85163 Init Hosp L3 Objective Data Vital Signs: [...] 76.4 H, Lymph % (Auto) 13.5 L, [place] % (Auto) 7.0, Eos % (Auto) 1.9, [...] (Auto) 94.8 H, Lymph % (Auto) 3.3L, [place] % (Auto) 1.1, Eos % (Auto) 0.0, [...] 76.4 H, Lymph % (Auto) 13.5 L, [place] % (Auto) 7.0, Eos % (Auto) 1.9, Baso % (Auto) 0.6, Absolute Neuts (auto) 12.0 H, Nucleated RBC % 0, PT 13.4, INR 1.0,APTT 37.3 H, D-Dimer Quant (PE/DVT) 1.86 H*, Sodium 139, Potassium 4.4, Oxtoancz206, Carbon Dioxide 20.8 L, Anion Gap 14, [...] 94.8 H, Lymph % (Auto) 3.3 L, [place] % (Auto) 1.1, Eos % (Auto) 0.0, [...] possibly multifocal congestion and/or pneumonia. Reading Location: [place] [address] Chest CTA 04/03/25 02:34 IMPRESSION: Mild bilateral pleural effusions. Passive atelectatic airspace disease/airspace consolidations of the lower lobes. Bilateral chronic perihilar interstitial pulmonary thickening with associated mild multifocal ground-glass densities, possibly superimposed pneumonia. Mild diffuse spondylosis. No CT evidence of pulmonary embolus or aortic dissection. Reading Location: [place] [address] Echocardiogram 04/03/25 05:55 Interpretation Summary Mid to [...] Student 04/03/25 1652 <Electronically signed by Breezy Campbell MD> Cosigner Signature (if applicable): CC: Dr. Ryley Jeter MD~ Signed [facility] Work Phone: 1(239) 104-151306-03-2025 Progress note [facility] Medical Records Department [address] [place] [address] Progress Note 04/03/25 1352 MR#: [id number] Acct: [id number] Name: ENOC ARMANDO Rep #:[id number] : 1945 79 From: Grace Arnold MD [...] 76.4 H, Lymph % (Auto) 13.5 L, [place] % (Auto) 7.0, Eos % (Auto) 1.9, Baso % (Auto) 0.6, Absolute Neuts (auto) 12.0 H, Absolute Lymphs (auto) 2.12, Nucleated RBC % 0, PT 13.4, INR 1.0,APTT 37.3 H, D-Dimer Quant (PE/DVT) 1.86 H*, Sodium 139, Potassium 4.4,Chloride 104, Carbon Wtvhpho63.8 L, Anion Gap 14, BUN 42 H, [...] (Auto) 94.8 H, Lymph % (Auto) 3.3L, [place] % (Auto) 1.1, Eos % (Auto) 0.0, [...] possibly multifocal congestion and/or pneumonia. [facility] Chest CTA 04/03/25 02:34 IMPRESSION: Mild bilateral pleural effusions. Passive atelectatic airspace disease/airspace consolidations of the lower lobes. Bilateral chronic perihilar interstitial pulmonary thickening with associated mild multifocal ground-glass densities, possibly superimposed pneumonia. Mild diffuse spondylosis. No CT evidence of pulmonary embolus or aortic dissection. Reading Location: [facility] Echocardiogram 04/03/25 05:55 Interpretation Summary [...] 32 mins Charges/Coding Visit Charges Inpatient E&M: 79417 PROLNG IP/OBS E/M EA 15 MIN 04/03/25 [...] Signature (if applicable): Date cc: ~* Signed [facility]-2025 Consult note [facility] Medical Records Department [address] [facility] [place] [address] Consultation - Cardiology 04/03/25 1630 MR#: [id number] Acct: [id number] Name: ENOC ARMANDO Rep #:[id number] : 1945 79 From: Breezy Campbell MD [...] left heart catheterization a year ago in [place] we will try to obtain those records [...] I will try to obtain records from [place] to see if this is new but [...] Will try to obtain cardiovascular records from [place] from last year. 2. Continue current medical therapy. 3. Will follow along with you as the patient recovers from his pulmonary insufficiency we may need to alter his cardiovascular medical therapy. 4. The patient does not routinely see a beauty school instructor by his report. We will behappy to [...] last year he underwentleft heart catheterization in [place] and that revealed 2 blocked arteries that had natural bypasses build up around him and he was treated medically. The patient specifically denies any chest pain. He denies any lower extremity edema. The patient's complaint was really dyspnea on exertion. He is now beingtreated with IV antibiotics and ventilatorysupport. The patient is DNR CCA. [facility] Medical History (Updated 04/03/25 @ 16:49 by [...] AdvReac Other Verified 04/03/25 00:16 (Glucocorticoids) (steroids) Rxfvqfo-PXU-WdQ Reductase AdvReac Other Verified 04/03/25 00:16 Inhibitor (Xpvvodq-Vbp-Ghc Reductase Inhibitor) Family History Mother COPD (chronic [...] 20% Risk Charges/Coding Visit Charges Inpatient E&M: 56403 Init Hosp L3 Objective Data Vital Signs: [...] 76.4 H, Lymph % (Auto) 13.5 L, [place] % (Auto) 7.0, Eos % (Auto) 1.9, Baso % (Auto) 0.6, Absolute Neuts (auto) 12.0 H, Absolute Lymphs (auto) 2.12, Nucleated RBC % 0, PT 13.4, INR 1.0,APTT 37.3 H, D-Dimer Quant (PE/DVT) 1.86 H*, Sodium 139, Potassium 4.4,Chloride 104, Carbon Nehdsbg69.8 L, Anion Gap 14, BUN 42 H, [...] (Auto) 94.8 H, Lymph % (Auto) 3.3L, [place] % (Auto) 1.1, Eos % (Auto) 0.0, [...] 76.4 H, Lymph % (Auto) 13.5 L, [place] % (Auto) 7.0, Eos % (Auto) 1.9, Baso % (Auto) 0.6, Absolute Neuts (auto) 12.0 H, Nucleated RBC %0, PT 13.4, INR 1.0,APTT 37.3 H, D-Dimer Quant (PE/DVT) 1.86 H*, Sodium 139, Potassium 4.4, Ohdpvsiv953, Carbon Dioxide 20.8 L, Anion Gap 14, [...] 94.8 H, Lymph % (Auto) 3.3 L, [place] %(Auto) 1.1, Eos % (Auto) 0.0, Baso [...] possibly multifocal congestion and/or pneumonia. Reading Location: [place] [address] Chest CTA 04/03/25 02:34 IMPRESSION: Mild bilateral pleural effusions. Passive atelectatic airspace disease/airspace consolidations of the lower lobes. Bilateral chronic perihilar interstitial pulmonary thickening with associated mild multifocal ground-glass densities, possibly superimposed pneumonia. Mild diffuse spondylosis. No CT evidence of pulmonary embolus or aortic dissection. Reading [facility] Echocardiogram 04/03/25 05:55 Interpretation Summary Mid to [...] applicable): CC: Dr. Ryley Jeter MD~ Signed [facility]06-03-2025 Consult note Author Landry Fagan [facility] Note Date/Time April 03, 2025 9:04a m [facility] Medical Records Department [address] [place] [address] Consultation - Creative Intern 04/03/25 0850 MR#: [id number] Acct: [id number] Name: ENOC ARMANDO Rep #:[id number] : 1945 79 From: Landry Fagan DO [...] without intubation This note was generated with Chasm.io (formerly Wahooly) dictation software. It may contain incorrectwords, spelling, [...] he has never been evaluated by a senior pensions administrator or completed pulmonary function studies. Therefore, it [...] to be a DNR CCA without intubation. [facility] Medical History Chronic anemia Tobacco use COPD [...] AdvReac Other Verified 04/03/25 00:16 (Glucocorticoids) (steroids) Mpsfxuo-MAY-NfW Reductase AdvReac Other Verified 04/03/25 00:16 Inhibitor (Odtxmri-Moz-Bpa Reductase Inhibitor) Family History Mother COPD (chronic [...] 76.4 H, Lymph % (Auto) 13.5 L, [place] % (Auto) 7.0, Eos % (Auto) 1.9, [...] (Auto) 94.8 H, Lymph % (Auto) 3.3L, [place] % (Auto) 1.1, Eos % (Auto) 0.0, [...] possibly multifocal congestion and/or pneumonia. Reading Location: [place] [address] Chest CTA 04/03/25 02:34 IMPRESSION: Mild bilateral pleural effusions. Passive atelectatic airspace disease/airspace consolidations of the lower lobes. Bilateral chronic perihilar interstitial pulmonary thickening with associated mild multifocal ground-glass densities, possibly superimposed pneumonia. Mild diffuse spondylosis. No CT evidence of pulmonary embolus or aortic dissection. Reading Location: [place] [address] Charges/Coding Visit Charges Inpatient E&M: 97300 Init Hosp L3 04/03/25 0904 <Electronically signed by Landry Fagan DO> Cosigner Signature (if applicable): CC: Dr. Ryley Jeter MD~ Signed [facility] Work Phone: 1(283) 442-205406-03-2025 Consult note [facility] Medical Records Department [address] [place] [address] Consultation - Creative Intern 04/03/25 0850 MR#: [id number] Acct: [id number] Name: ENOC ARMANDO Rep #:[id number] : 1945 79 From: Lnadry Fagan DO PCP: Dr. Ryley Jeter MD [...] without intubation This note was generated with S.[employer]. Safe&Software[employer] software. It may contain incorrectwords, spelling, and [...] he has never been evaluated by a senior pensions administrator or completed pulmonary function studies. Therefore, it is unknown if the patient has underlying obstructive lung disease. He does not utilize any inhalers at his [facility]. On presentation to the emergency department, the [...] morning to be a DNR CCA withoutintubation. [facility] Medical History Chronic anemia Tobacco use COPD [...] AdvReac Other Verified 04/03/25 00:16 (Glucocorticoids) (steroids) Vlpwjok-YMW-JsD Reductase AdvReac Other Verified 04/03/25 00:16 Inhibitor (Xaglroh-Xmp-Jdy Reductase Inhibitor) Family History Mother COPD (chronic [...] 76.4 H, Lymph % (Auto) 13.5 L, [place] % (Auto) 7.0, Eos % (Auto) 1.9, Baso % (Auto) 0.6, Absolute Neuts (auto) 12.0 H, Absolute Lymphs (auto) 2.12, Nucleated RBC % 0, PT 13.4, INR 1.0,APTT 37.3 H, D-Dimer Quant (PE/DVT) 1.86 H*, Sodium 139, Potassium 4.4,Chloride 104, Carbon Zhxvpff18.8 L, Anion Gap 14, BUN 42 H, [...] (Auto) 94.8 H, Lymph % (Auto) 3.3L, [place] % (Auto) 1.1, Eos % (Auto) 0.0, [...] possibly multifocal congestion and/or pneumonia. Reading Location: [place] [address] Chest CTA 04/03/25 02:34 IMPRESSION: Mild bilateral pleural effusions. Passive atelectatic airspace disease/airspace consolidations of the lower lobes. Bilateral chronic perihilar interstitial pulmonary thickening with associated mild multifocal ground-glass densities, possibly superimposed pneumonia. Mild diffuse spondylosis. No CT evidence of pulmonary embolus or aortic dissection. Reading Location: [place] [address] Charges/Coding Visit Charges Inpatient E&M: 28778 Init Hosp L3 04/03/25 0904 Cosigner Signature (if applicable): CC: Dr. Ryley Jeter MD~ Signed [facility]06-03-2025 History and physical note Author Dyana Hwang [facility] Note Date/Time April 03, 2025 4:42a m [facility] Medical Records Department [address] [place] [address] H&P Exam - Hospitalist 04/03/25 0402 MR#: [id number] Acct: [id number] Name: ENOC ARMANDO Rep #:[id number] : 1945 79 From: Dyana Hwang MD [...] pathology, Tobacco use who presents to the [facility] ED on 04/03/2025 with history of worsening [...] x 1 and sublingual nitroglycerin x 1. [facility] Medical History (Updated 04/03/25 @ 04:40 by [...] AdvReac Other Verified 04/03/25 00:16 (Glucocorticoids) (steroids) Okzyotr-ATA-OkV Reductase AdvReac Other Verified 04/03/25 00:16 Inhibitor (Wvmvhky-Ide-Zth Reductase Inhibitor) Family History (Updated 04/03/25 @ [...] 76.4 H, Lymph % (Auto) 13.5 L, [place] % (Auto) 7.0, Eos % (Auto) 1.9, [...] possibly multifocal congestion and/or pneumonia. Reading [facility] Chest CTA 04/03/25 02:34 IMPRESSION: Mild bilateral pleural effusions. Passive atelectatic airspace disease/airspace consolidations of the lower lobes. Bilateral chronic perihilar interstitial pulmonary thickening with associated mild multifocal ground-glass densities, possibly superimposed pneumonia. Mild diffuse spondylosis. No CT evidence of pulmonary embolus or aortic dissection. Reading Location: [place] [address] Assessment & Plan Assessment/Plan (1) Acute hypoxic respiratory failure: PLAN: Plan The patient is an 79 y/o M w/ PMHx: CKD stage III unclear subtype per GFR trending, Chronic macrocytic anemia, HTN, HLD, Diabetes mellitus type II, BPH with obstructive pathology, Tobacco use who presents to the [facility] ED on 04/03/2025 with history of worsening [...] any pulmonary embolus or aortic dissection, initial ducqisji24 with repeat delta troponin 76. Will maintain [...] 16 minutes. Charges/Coding Visit Charges Inpatient E&M: 01683 Init Hosp L3 Procedures Hospitalists Procedures: 36699 Advncd Care Plan 30 Min 04/03/25 3558 <Electronically signed by Dyana Hwang MD> Cosigner Signature (if applicable): CC: Dr. Dyana Hwang MD; Dr. Ryley Jeter MD~ Signed [facility] Work Phone: 1(207) 265-891806-03-2025 Evaluation note* Diagnosis Onset Date Resolution Status Admit Date Acute hypoxic respiratory failure ac [place] April 03, 2025 4:16am MADONNA (acute kidney injury) acute April 03, 2025 4:16am Anemia acute April 03, 2025 4:16am Bradycardia acute April 03 4:16am LV dysfunction acute April 03, 2025 4:16am Non-STEMI (non-ST elevated myocardial infarction) acute April 03, 2025 4:16am CKD (chronic kidney disease) , stage III chronic April 03, 2025 4 :16am HTN (hypertension) chronic April 032024 4:16am [facility] Work Phone: [phone] 822-531206-03-2025 Discharge summary Author John Brandon [facility] Note Date/Time April 03, 2025 4:11a m [facility] Medical Records Department [address] [place] [address] Emergency Department Summary 04/03/25 MR#: [id number] Acct: [id number] Name: ENOC ARMANDO Rep #:[id number] : 1945 79 From: John Ramirez PCP: Dr. Rlyey Jeter MD Status:REG ER Location: ED HPI History of Present Illness Chief Complaint: Shortness of Breath PFSH [facility] Medical History Pneumonia COVID Wears glasses Wears [...] AdvReac Other Verified 04/03/25 00:16 (Glucocorticoids) (steroids) Xbbgmdz-Jtu-Ayv Reductase AdvReac Other Verified 04/03/25 00:16 Inhibitor [...] Consults: internal medicine only sees Dr. Hwang) [facility] Narrative: The patient was initially [...] to ICU This note was generated with Chasm.io (formerly Wahooly) dictation software. It may contain incorrectwords, spelling, [...] 76.4 H Lymph % (Auto) 13.5 L [place] % (Auto) 7.0 Eos % (Auto) 1.9 [...] possibly multifocal congestion and/or pneumonia. Reading Location: [place] [address] Discharge Plan Triage Chief Complaint: Shortness of [...] MD [Primary Care Provider] - Print Language: Cook Islander What to do if you have Problems For any increased pain, shortness of breath, bleeding, nausea or vomiting, chestpain, or any unexpected problems, contact your Primary Care Provider. Call [facility] ([phone]) or report to the closest Emergency Room. Call 911 if necessary. 04/03/25410 <Electronically signed by John Brandon DO> Cosigner Signature (if applicable): CC: Dr. Ryley Jeter MD ~ Signed [facility] Work Phone: [phone] History and physical note [facility] Medical Records Department [address] [place] [address] H&P Exam - Hospitalist 04/03/25 0402 MR#: [id number] Acct: [id number] Name: ENOC ARMANDO Rep #:[id number] : 1945 79 From: Dyana Hwang MD [...] pathology, Tobacco use who presents to the [facility] ED on 04/03/2025 with history of worsening [...] x 1 and sublingual nitroglycerin x 1. [facility] Medical History (Updated 04/03/25 @ 04:40 by [...] AdvReac Other Verified 04/03/25 00:16 (Glucocorticoids) (steroids) Jburmjy-QGT-IfI Reductase AdvReac Other Verified 04/03/25 00:16 Inhibitor (Rnvjwdw-Suw-Xdh Reductase Inhibitor) Family History (Updated 04/03/25 @ [...] 76.4 H, Lymph % (Auto) 13.5 L, [place] % (Auto) 7.0, Eos % (Auto) 1.9, [...] possibly multifocal congestion and/or pneumonia. Reading Location: [place] [address] Chest CTA 04/03/25 02:34 IMPRESSION: Mild bilateral pleural effusions. Passive atelectatic airspace disease/airspace consolidations of the lower lobes. Bilateral chronic perihilar interstitial pulmonary thickening with associated mild multifocal ground-glass densities, possibly superimposed pneumonia. Mild diffuse spondylosis. No CT evidence of pulmonary embolus or aortic dissection. Reading Location: [place] [address] Assessment & Plan Assessment/Plan (1) Acute hypoxic respiratory failure: PLAN: Plan The patient is an 79 y/o M w/ PMHx: CKD stage III unclear subtype per GFR trending, Chronic macrocytic anemia, HTN, HLD, Diabetes mellitus type II, BPH with obstructive pathology, Tobacco use who presents to the [facility] ED on 04/03/2025 with history of worsening [...] any pulmonary embolus or aortic dissection, initial [id number] repeat delta troponin 76. Will maintain on [...] 16 minutes. Charges/Coding Visit Charges Inpatient E&M: 67825 Init Hosp L3 Procedures Hospitalists Procedures: 62623 Advncd Care Plan 30 Min 04/03/25 0442 Cosigner Signature (if applicable): CC: Dr. Dyana Hwang MD; Dr. Ryley Jeter MD~ Signed [facility]06-03-2025 Discharge summary [facility] Medical Records Department [address] [place] [address] Emergency Department Summary 04/03/25 MR#: [id number] Acct: [id number] Name: ENOC ARMANDO Rep #:[id number] : 1945 79 From: John Ramirez PCP: Dr. Ryley Jeter MD Status:REG ER Location: ED HPI History of Present Illness Chief Complaint: Shortness of Breath [facility] Medical History Pneumonia COVID Wears glasses [...] AdvReac Other Verified 04/03/25 00:16 (Glucocorticoids) (steroids) Ymvcjpd-Hch-Xfe Reductase AdvReac Other Verified 04/03/25 00:16 Inhibitor [...] (L/min) 4 Fraction of Inspired Oxygen (FIO2) [facility] MDM MDM Narrative Medical decision [...] to ICU This note was generated with Chasm.io (formerly Wahooly) dictation software. It may contain incorrectwords, spelling, [...] 76.4 H Lymph % (Auto) 13.5 L [place] % (Auto) 7.0 Eos % (Auto) 1.9 [...] possibly multifocal congestion and/or pneumonia. Reading Location: [place] [address] Discharge Plan Triage Chief Complaint: Shortness of [...] MD [Primary Care Provider] - Print Language: [place] Islander What to do if you have Problems For any increased pain, shortness of breath, bleeding, nausea or vomiting, chestpain, or any unexpected problems, contact your Primary Care Provider. Call [facility] ([phone]) or report tothe closest Emergency Room. Call 911 if necessary. 04/03/25 0411 Cosigner Signature (if applicable): CC: Dr. Ryley Jeter MD ~ Signed [facility]06-03-2025 Radiology Diagnostic study note [facility] Imaging Services [address] [place], [place] [address] CTA Chest W/WO Contrast MR#: [id number] Acct: [id number] Name: ENOC ARMANDO Rep #: [id number] : 1945 M 79 From: Darcy Reese MD PCP: Dr. Ryley Jeter MD Status: REG ER Study:CTA Chest W/WO Contrast Date of Exam: 04/03/25 Exam# [id number] Ordering Dr: Mine Brandon DO PROCEDURE: CTA [...] pulmonary embolus or aortic dissection. Reading Location: [place] [address] CC: Dr. Ryley Jeter MD; Dr. John Brandon DO ~ Child Guidance Counselor: Signed [facility]06-03-2025 Radiology Diagnostic study note [facility] Imaging Services [address] [place] [address] Chest 1 View (Portable) MR#: [id number] Acct: [id number] Name: ENOC ARMANDO Rep #: [id number] : 1945 M 79 From: Darcy Reese MD PCP: Dr. Ryley eJter MD Status: REG ER Study:Chest 1 View (Portable) Date of Exam: 04/03/25 Exam# [id number] Ordering Dr: Mine Brandon DO PROCEDURE: CHEST [...] possibly multifocal congestion and/or pneumonia. Reading Location: [place] [address] CC: Dr. Ryley Jeter MD; Dr. John Brandon DO ~ Child Guidance Counselor: Signed [facility]05-27-2025 Telephone encounter Note* Telephone Encounter - Ej Guidry MA - 03/27/2025 1:23 PM EDT Called pt's Alice with lab results per Dr. Small. Alice verbalized understanding and had no further questions. [id number] Miscellaneous Notes* Telephone Encounter - Ej Guidry [...] To: Woo Small MD documented in this [id number] Telephone encounter Note* Telephone Encounter - Ej Guidry MA - 03/27/2025 10:50 AM EDT Left voicemail asking for pt to call back to go over lab results per Dr. Small. Given phone number tocall back. [id number] Telephone encounter Note* Telephone Encounter - Ej [...] 7:18 AM EDT To: Woo Small MD [id number] NotePatient ID: Enoc Armando is a 79 [...] being taken. Patient does not see a mid level net developer. Eye exam is current. Currently taking: [...] medications, past family his (more content not included)...[facility]05-12-2025 History of Present illness Narrative* Paty Ortega, DISABILITY SPECIALIST - 03/12/2025 1:50 PM EDT Images from [...] being taken. Patient does not see a mid level net developer. Eye exam is current. Currently taking: [...] if BG <150 at HS. 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 Had bilat cataract extraction Dr. Lopez. Sees Dr. Browne in [place] every year routinely.Has blurred vision with low [...] Call if BG consistently <70 or >250. [phone] Continue to check blood sugar 3 times [...] CNP 03/12/25 1:21 PM documented in this [id number] NoteGeneral Cardiology New Patient Clinic Consult [facility] Heart [facility] 03/09/2025 Woo Small MD [address] [place] [address], 3rd Floor Medical Office Building [facility] [address] Patient: Enoc Armando Date of : [...] to be ischemic Coronary 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[place] coronary artery of [place] heart without angina pectoris (Primary) Patient underwent [...] No follow-ups on file. Woo Small MD, [facility] Non-Invasive Cardiology [facility] P:[phone] F:[phone] History of Present Illness: Enoc Armando is a 79 y.o. man with a past medical history of insulin-dependent diabetes for 30 years, history of tobacco use, recent COVID infection with systolic dysfunction ejection fraction ranging from 35 to 45% who presented initially to [facility] care. He underwent stress testing which showed inferior wall abnormality as well as ejection fraction of 50%. I initially met with him back in January 2024 and he was doing quite well, however he presented in October with symptoms of fatigue, malaise, flash pulmonary edema and hypertensive emergency with reduced ejection fraction at [facility]. 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 Tobacco abuse Past Surgical History: Procedure Laterality Date CATARACT EXT/ECCE Bilateral 12/2012,07/2014 [facility] CATH PLMT L HRT & ARTS W/NJX & ANGIO IMG S&I N/A 10/27/2024 Procedure: Coronary Angiogram; Surgeon: Elías Rodriguez MD; Location: [facility]; Service: Cardiovascular [facility] CATH PLMT L HRT & ARTS W/NJX & ANGIO IMG S&I N/A 10/27/2024 Procedure: Left Heart Cath; Surgeon: Elías Rodriguez MD; Location: [facility]; Service: Cardiovascular SKIN CANCER EXCISION 09/2021 L ear Family History Problem Relation Age of Onset Coronary artery disease Father Alzheimer's disease Father Social History Tobacco Use Smoking Statu (more content not included)...[facility] [id number] History of Present illness Narrative* Woo Small MD - 03/09/2025 9:39 AM EDT General Cardiology New Patient Clinic Consult [facility] 03/09/2025 Woo Small MD [address] [place] [address] 3rd Floor Medical Office [facility] [address] Patient: Enoc Armando Date of : [...] to be ischemic Coronary 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[place] coronary artery of [place] heart without angina pectoris (Primary) Patient underwent [...] No follow-ups on file. Woo Small MD, [facility] Non-Invasive Cardiology [facility] P:[phone] F:[phone] History of Present Illness: Enoc Armando is a 79 y.o. man with a past medical history of insulin-dependent diabetes for 30 years, history of tobacco use, recent COVID infection with systolic dysfunction ejection fraction ranging from 35 to 45% who presented initially to [facility]. He underwent stress testing which showedinferior wall abnormality as well as ejection fraction of 50%. I initially met with him back in January 2024 and he was doing quite well, however he presented in October with symptoms of fatigue, malaise, flash pulmonary edema and hypertensive emergency with reduced ejection fraction at [facility]. 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 Tobacco abuse Past Surgical History: Procedure Laterality Date CATARACT EXT/ECCE Bilateral 12/2012,07/2014 NH CATH PLMT L HRT & ARTS W/NJX & ANGIO IMG S&I N/A 10/27/2024 Procedure: Coronary Angiogram; Surgeon: Elías Rodriguez MD; Location: [facility];Service: Cardiovascular [facility] CATH PLMT L HRT & ARTS W/NJX & ANGIO IMG S&I N/A 10/27/2024 Procedure: Left Heart Cath; Surgeon: Elías Rodriguez MD; Location: [facility]; Service: Cardiovascular SKIN CANCER EXCISION 09/2021 L ear Family History Problem Relation Age of Onset Coronary artery disease Father Alzheimer's disease Father Social History Tobacco Use Smoking Status Every Day Current packs/day: 0.50 Average packs/day: 0.5 packs/day for 61.4 years (30.7 ttl pk-yrs) Types: Cigarettes Start date: 1965 Smokeless Tobacco Never Allergies: Qvvgpar-lkw-sew reductase inhibitors All of the information has [...] 3 tablet, Rfl: 3 OXYGEN-AIR DELIVERY SYSTEMS [facility], Inhale 2 L/min See Admin Instructions ., [...] mood and affect, appropriate conversation Cardiovascular Studies: [facility] 2024 Echo 2023 Carotids 2024 [...] arterial duplex was normal Echocardiogram reviewed from [facility], 10/11/2023 moderately decreased ejection fraction [...] history suggesting prior/existing ASCVD documented in this [id number] Instructions* Patient Instructions* Woo Small MD - 03/09/2025 7:56 AM EDT How to Contact your Care Team: Provider: Dr. Woo Small MD Clinic Nurse: FIDEL Moran Clinic MA: SUSAN Pagan REFILLS: When in need for refills please call your care team or the office at [phone]. Please include medication name, pharmacy name, and [...] work in 2 weeks documented in this [id number] NoteHMS DISCHARGE SUMMARY -- [facility] Enoc Armando : 1945 Admitted: 02/28/2025 Discharge Date: 03/05/25 PCP Handoff Recommended Outpatient Testing None Results Pending At Discharge None Clinical Summary Enoc Armando is a 79 y.o. male patient of Ryley Jeter MD with history of type I IDDM, hypertension, CAD, diastolic HF, dyslipidemia, COPD, CKD presented to [facility] on 02/28/2025 with shortness of breath. Assessment/plan [...] by mouth daily . (more content not included)...[facility]05-04-2025 NoteHMS PROGRESS NOTE Patient Name: Enoc Armando : 1945 Assessment and Plan Enoc Armando is a 79 y.o. male patient of Ryley Jeter MD with history of type I IDDM, hypertension, CAD, diastolic HF, dyslipidemia, COPD, CKD presented to [facility] on 02/28/2025 with shortness of breath. Assessment/plan [...] affect AUTHENTICATED BY BERNADETTE PARNELL ON 03/04/2025 11:10:[address] [place] [address] 03-03-2025 NoteHMS PROGRESS NOTE Patient Name: Enoc Armando : 1945 Assessment and Plan Enoc Armando is a 79 y.o. male patient of Ryley Jeter MD with history of type I IDDM, hypertension, CAD, diastolic HF, dyslipidemia, COPD, CKD presented to [facility] on 02/28/2025 with shortness of breath. 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 [...] dictation software was used Aparna Browne MSN, NURSE CHEMICAL DEPENDENCY, ANP-C [1] Current Facility-Administered Medications Medication Dose [...] 0-5,000 Units Intravenous Con (more content not included)...[facility]05-02-2025 NoteHMS PROGRESS NOTE Patient Name: Enoc Armando : 1945 Assessment and Plan Enoc Armando is a 79 y.o. male patient of Ryley Jeter MD with history of type I IDDM, hypertension, CAD, diastolic HF, dyslipidemia, COPD, CKD presented to [facility] on 02/28/2025 with shortness of breath. Assessment/plan [...] affect AUTHENTICATED BY PEMA DUNBAR, ON 03/02/2025 13:48:04[facility] 03-01-2025 NoteHMS PROGRESS NOTE Patient Name: Enoc Armando : 1945 Assessment and Plan Enoc Armando is a 79 y.o. male patient of Ryley Jeter MD with history of type I IDDM, hypertension, CAD, diastolic HF, dyslipidemia, COPD, CKD presented to [facility] on 02/28/2025 with shortness of breath. Assessment/plan [...] affect AUTHENTICATED BY PEMA DUNBAR, ON 03/01/2025 12:52:52[facility] 02-28-2025 NoteHMS PROGRESS NOTE Patient Name: Enoc Armando : 1945 Assessment and Plan Enoc Armando is a 79 y.o. male patient of Ryley Jeter MD with history of type I IDDM, hypertension, CAD, diastolic HF, dyslipidemia, COPD, CKD presented to [facility] on 02/28/2025 with shortness of breath. Assessment/plan [...] affect AUTHENTICATED BY PEMA DUNBAR, ON 02/28/2025 13:04:[address] [place] [address] 02-28-2025 NoteHMS HISTORY AND PHYSICAL -- [facility] Patient Name: Enoc Armando : 1945 MR #: [id number] Admit Date: 02/28/2025 Physicians: Ryley Jeter MD (Family); No ref. provider found (Referring) Enoc Armando is a 79 y.o. male patient of Ryley Jeter MD with history of type I IDDM, hypertension, CAD, diastolic HF, dyslipidemia, COPD, CKD presented to [facility] on 02/28/2025 with shortness of breath. Assessment/plan [...] diastolic HF, dyslipidemia, COPD, CKD presented to [facility] on 02/28/2025 with shortness of breath. Patient [...] Procedure Laterality Date CATARACT EXT/ECCE Bilateral 12/2012,07/2014 NH CATH PLMT L HRT & ARTS W/NJX & ANGIO IMG S&I N/A 10/27/2024 Procedure: Coronary Angiogram; Surgeon: Elías Rodriguez MD; Location: [facility]; Service: Cardiovascular NH CATH PLMT L HRT & ARTS W/NJX & ANGIO IMG S&I N/A 10/27/2024 Procedure: Left Heart Cath; Surgeon: Elías Rodriguez MD; Location: [facility]; Service: Cardiovascular SKIN CANCER EXCISION 09/2021 L ear Family History Family History Problem Relation Age of Onset Coronary artery disease Father Alzheimer's disease Father Social History Tobacco Use History[1] Social History Substance and Sexual Activity Alcohol Use No Alcohol/week: 0.0 standard drinks of alcohol Social History Substance and Sexual Activity Drug Use No Allergy Information I have reviewed the patient's allergies. Alymowt-lez-ceb reductase inhibitors Home Medications Home medications were reviewed. Review Of Systems All relevant systems have been reviewed and are negative except as noted in HPI or below Physical Examination BP (!) 194/62 Pulse 97 Temp 97.8 degrees F (36.6 degrees C) (Oral) Resp (!) 22 Ht 5' 7 Wt 65.8 (more content not included)...[facility]04-28-2025 History of Present illness Narrative* Ayanna Albert, [...] DO 02/26/25 1:17 PM [facility] Work Phone: 1(907) 907-269604-16-2025 History of Present illness Narrative* Ej Guidry MA - 02/14/2025 11:02 AM EDT Refaxed letter written on 01/18/[address] Small to [facility]. documented in this [id number] Instructions* Patient Instructions* Luisa Easley RN - 11/14/2024 11:36 AM EST How to Contact your Care Team: Provider: Dr. Woo Small MD Clinic Nurse: FIDEL Moran Clinic MA: SUSAN Pagan REFILLS: When in need for refills please call your care team or the office at [phone]. Please include medication name, pharmacy name, and specify 30-day or 90-day supply. Please check with your pharmacy within 24 hours of request for your refill. You must follow up as directed to continue current refills. Thank you! documented in this [id number] History of Present illness Narrative* Woo Small MD - 11/14/2024 10:40 AM EST General Cardiology New Patient Clinic Consult [facility], Heart & Vascular 11/14/2024 Woo Small MD [address] [place] [phone] Patient: Enoc Amrando Date of : 1945 (78 y.o.) PCP: Ryley Jeter MD Date of Service: 11/14/2024 Chief Complaint: Follow-up Assessment and Plan: 1. Coronary 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[place] coronary artery of [place] heart without angina pectoris(Primary) Patient underwent left [...] 6 months (around 05/14/2025). Woo Small MD, [facility] Non-Invasive Cardiology [facility] P:[phone] F:[phone] History of Present Illness: Enoc Armando is a 78 y.o. man with a past medical history of insulin-dependent diabetes for 30 years, history of tobacco use, recent COVID infection with systolic dysfunction ejection fraction ranging from 35 to 45% who presented initially to [facility]. He underwent stress testing which showedinferior wall abnormality as well as ejection fraction of 50%. I initially met with him back in January 2024 and he was doing quite well, however he presented in October with symptoms of fatigue, malaise, flash pulmonary edema and hypertensive emergency with reduced ejection fraction at [facility]. Left heart catheterization was ultimately recommended which [...] Procedure Laterality Date CATARACT EXT/ECCE Bilateral 12/2012,07/2014 NH CATH PLMT L HRT & ARTS W/NJX & ANGIO IMG S&I N/A 10/27/2024 Procedure: Coronary Angiogram; Surgeon: Elías Rodriguez MD; Location: [facility];Service: Cardiovascular NH CATH PLMT L HRT & ARTS W/NJX & ANGIO IMG S&I N/A 10/27/2024 Procedure: Left Heart Cath; Surgeon: Elías Rodriguez MD; Location: [facility]; Service: Cardiovascular SKIN CANCER EXCISION 09/2021 L ear Family History Problem Relation Age of Onset Coronary artery disease Father Alzheimer's disease Father Social History Tobacco Use Smoking Status Every Day Current packs/day: 0.50 Average packs/day: 0.5 packs/day for 61.0 years (30.5 ttl pk-yrs) Types: Cigarettes Start date: 1965 Smokeless Tobacco Never Allergies: Nbqomyt-mwc-rsc reductase inhibitors All of the information has [...] 90 tablet, Rfl: 3 OXYGEN-AIR DELIVERY SYSTEMS [facility], Inhale 2 L/min See Admin Instructions ., [...] mood and affect, appropriate conversation Cardiovascular Studies: [facility] 2024 Echo 2023 Carotids 2024 [...] arterial duplex was normal Echocardiogram reviewed from [facility], 10/11/2023 moderately decreased ejection fraction [...] history suggesting prior/existing ASCVD documented in this [id number] NoteGeneral Cardiology New Patient Clinic Consult [facility], Heart & Vascular 11/14/2024 Woo Small MD [address] [place] [phone] Patient: Enoc Armando Date of : 1945 (78 y.o.) PCP: Ryley Jeter MD Date of Service: 11/14/2024 Chief Complaint: Follow-up Assessment and Plan: 1. Coronary 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[place] coronary artery of [place] heart without angina pectoris (Primary) Patient underwent [...] Woo Small MD, FACC Non-Invasive Cardiology [facility] P:[phone] F:[phone] History of Present Illness: Enoc Armando is a 78 y.o. man with a past medical history of insulin-dependent diabetes for 30 years, history of tobacco use, recent COVID infection with systolic dysfunction ejection fraction ranging from 35 to 45% who presented initially to [facility]. He underwent stress testing which showed inferior wall abnormality as well as ejection fraction of 50%. I initially met with him back in January 2024 and he was doing quite well, however he presented in October with symptoms of fatigue, malaise, flash pulmonary edema and hypertensive emergency with reduced ejection fraction at [facility]. Left heart catheterization was ultimately recommended which [...] Procedure Laterality Date CATARACT EXT/ECCE Bilateral 12/2012,07/2014 NH CATH PLMT L HRT & ARTS W/NJX & ANGIO IMG S&I N/A 10/27/2024 Procedure: Coronary Angiogram; Surgeon: Elías Rodriguez MD; Location: [facility]; Service: Cardiovascular NH CATH PLMT L HRT & ARTS W/NJX & ANGIO IMG S&I N/A 10/27/2024 Procedure: Left Heart Cath; Surgeon: Elías Rodriguez MD; Location: [facility]; Service: Cardiovascular SKIN CANCER EXCISION 09/2021 L ear Family History Problem Relation Age of Onset Coronary artery disease Father Alzheimer's disease Father Social History Tobacco Use Smoking Status Every Day Current packs/day: 0.50 Average packs/day: 0.5 packs/day for 61.0 years (30.5 ttl pk-yrs) Types: Cigarettes Start date: 1965 Smokeless Tobacco Never Allergies: Rvczwlq-glw-vpa reductase inhibitors All of the information has been reviewed at today's visit and modified if necessary. Home Medications: Current Outpatient Medications: acetaminophen (Tylenol Arthritis Pain) 650 MG CR tablet, Take 1 (one) tablet (650 mg total) by mouth every 8 (eight) hours as needed for pain ., (more content not included)...[facility] [id number] NotePatient ID: Enoc Armando is a 78 [...] required IV insulin gtt. . Hospitalized in [facility]. Reports URI symptoms with ear lockage. [...] being taken. Patient does not see a mid level net developer. Eye exam is current. Currently taking: [...] kg (148 lb) 01 (more content not included)...[facility]01-13-2025 History of Present illness Narrative* [...] required IV insulin gtt. . Hospitalized in [facility]. Reports URI symptoms with ear lockage. [...] being taken. Patient does not see a mid level net developer. Eye exam is current. Currently taking: [...] if BG <150 at HS. 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 Had bilat cataract extraction Dr. Lopez. Sees Dr. Browne in [place] every year routinely.Has blurred vision with low [...] Call if BG consistently <70 or >250. [phone] Continue to check blood sugar 3 times [...] CNP 11/13/24 1:21 PM documented in this [id number] Evaluation + Plan note* Assessment & Plan [...] be performed in conjunction with coronary revascularization. [id number] Miscellaneous Notes* Assessment & Plan Note - [...] conjunction with coronary revascularization. documented in this [id number] NoteOFFICE CONSULTATION NOTE [facility] [address] ([address]) [facility] [address] [facility] [phone] Physicians: Ryley Jeter MD (Family); [...] ear left ear Toba (more content not included)...[facility]01-09-2025 History of Present illness Narrative* Kristy Parker MD - 11/09/2024 10:36 AM EST OFFICE CONSULTATION NOTE [facility] [address] ([address]) [facility] [address] [facility] [phone] Physicians: Ryley Jeter MD (Family); [...] Procedure Laterality Date CATARACT EXT/ECCE Bilateral 12/2012,07/2014 NH CATH PLMT L HRT & ARTS W/NJX & ANGIO IMG S&I N/A 10/27/2024 Procedure: Coronary Angiogram; Surgeon: Elías Rodriguez MD; Location: [facility];Service: Cardiovascular NH CATH PLMT L HRT & ARTS W/NJX & ANGIO IMG S&I N/A 10/27/2024 Procedure: Left Heart Cath; Surgeon: Elías Rodriguez MD; Location: [facility]; Service: Cardiovascular SKIN CANCER EXCISION 09/2021 L [...] by mouth daily . OXYGEN-AIR DELIVERY SYSTEMS [facility] Inhale 2 L/min See Admin Instructions . [...] Reported on 11/09/2024 .) Allergies Allergen Reactions Flfdwci-Koe-Edo Reductase Inhibitors Muscle cramps ROS Negative aside [...] 11/27/2023 Kristy Parker MD documented in this [id number] Instructions* Patient Instructions* Yesenia Mcdaniel MA - 11/09/2024 10:32 AM EST How to contact your Care Team: Provider: MD Georgia Ludwig CNP Nyoka Fauser, CNP Jill Bender, PA Nurse: Jeannie Rubio RN To reschedule office appointments call Scheduling [phone] In case of an emergency please call 911. When in need of refills please call the phone number listed above. Please include medication name, pharmacy name and specify 30 or 90 day supply Please check with your pharmacy within 24 hours of your request for refill. You must follow up as directed to continue current refills. Thank you! documented in this [id number] Amanda Armando [id number] @[email or web address]@ Brock Groves MD 11/07/24 Room/bed info [...] right heart failure which required admission to [facility] for hypertensive emergency and acute flash pulmonary [...] artery stenosis - CHF (congestive heart failure) ([facility]) - CKD (chronic kidney disease) stage 4, GFR 15-29 ml/min ([facility]) - Diabetes mellitus type 1 ([facility]) - Emphysema lung ([facility]) - Hypercholesterolemia - Hypertension - Kidney stone 2006 Lithotripsy - Normocytic anemia - PAD (peripheral artery disease) ([facility]) - Pneumonia - Polyneuropathy - Spinal stenosis, lumbar - 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 - Tobacco abuse Past Surgical History: Procedure Laterality Date - CATARACT EXT/ECCE Bilateral 12/2012,07/2014 - NH CATH PLIN L HRT & ARTS W/NJX & ANGIO IMG S&I N/A 10/27/2024 Procedure: Coronary Angiogram; Surgeon: Elías Rodriguez MD; Location: [facility]; Service: Cardiovascular - NH CATH PLIN L HRT & ARTS W/NJX & ANGIO IMG S&I N/A 10/27/2024 Procedure: Left Heart Cath; Surgeon: Elías Rodriguez MD; Location: [facility]; Service: Cardiovascular - SKIN CANCER EXCISION 09/2021 [...] 3 - insulin g (more content not included)...[facility]01-07-2025 History of Present illness Narrative* Brock Groves MD - 11/07/2024 10:36 AM EST Enoc Armando [phone] @[facility]@ Brock Groves MD 11/07/24 Room/bed info not [...] right heart failure which required admission to [facility] for hypertensive emergency and acute flash pulmonary [...] Lithotripsy Normocytic anemia PAD (peripheral artery disease) ([facility]) Pneumonia Polyneuropathy Spinal stenosis, lumbar 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 Allergies Allergen Reactions Ymohken-Cch-Tle Reductase Inhibitors Muscle cramps Family History Problem [...] Resource Strain: Low Risk (10/11/2023) [facility] Overall Financial Resource Strain (CARDIA) Difficulty [...] Addressed This Visit None documented in this [id number] Progress note* Quick Note - Karthik Sandoval RN - 10/28/2024 2:53 PM EST Patient blood sugar at 1:27pm measured 288. Blood sugar at this time measured 321. [facility] ordered to give 8 units of lispro at this time and to instruct patient to recheck blood sugar in a couple hours at home. Patient IV removed and discharge education provided at this time. Patient understands and verbalizes he will check blood sugar when home and to follow medication regimen after discharge [id number] Miscellaneous Notes* Quick Note - Karthik Sandoval RN - 10/28/2024 2:53 PM EST Patient blood sugar at 1:27pm measured 288. Blood sugar at this time measured 321. [facility] ordered to give 8 units of lispro [...] but appreciative with provided care. Bed alarm deputy commonwealth's attorney light in reach. * Plan of Care [...] potasium and elevated glucose. documented in this [id number] NoteS DISCHARGE SUMMARY -- [facility] Enoc Armando Admitted: 10/27/2024 Discharge Date: 10/28/24 PCP Handoff Recommended Outpatient Testing none Results Pending At Discharge none Clinical Summary Enoc Armando is a 78 y.o. male patient of Ryley Jeter MD with history of coronary artery disease, type 1 diabetes, diastolic CHF, hypertension dyslipidemia COPD and lumbar spinal stenosis with chronic low back pain presented to [facility] on 10/27/2024 for an elective left heart [...] Physician(s) Follow Up: Brock Groves MD [address] [place] [phone] Follow up on 11/07/2024 Consultation for surgivcal [...] PM AUTHENTICATED BY NIDIA GARAY, ON 10/28/2024 14:19:[address] [place] [address] 10-28-2024 Hospital course Narrative* Nidia Garay MD - 10/28/2024 2:16 PM EST [facility] DISCHARGE SUMMARY -- [facility] Enoc Armando Admitted: 10/27/2024 Discharge Date: 10/28/24 PCP Handoff Recommended Outpatient Testing none Results Pending At Discharge none Clinical Summary Enoc Armando is a 78 y.o. male patient of Ryley Jeter MD with history of coronary artery disease, type 1 diabetes, diastolic CHF, hypertension dyslipidemia COPD and lumbar spinal stenosis withchronic low back pain presented to [facility] on 10/27/2024 for an elective left heart [...] Physician(s) Follow Up: Brock Groves MD [address] [place] [phone] Follow up on 11/07/2024 Consultation for surgivcal [...] on 10/28/24, 2:16 PM documented in this [id number] NoteDaily Progress Note Assessment/Plan: Principal Problem: Hyperglycemia [...] Garay.. AUTHENTICATED BY ZOILA POLLARD, ON 10/28/2024 14:16:[address] [place] [address] 10-28-2024 History of Present illness Narrative* Zoila [...] Garay MD - 10/28/2024 11:36 AM EST [facility] PROGRESS NOTE Assessment and Plan Enoc Armando is a 78 y.o. male patient of Ryley Jeter MD with history of coronary artery disease, type 1 diabetes, diastolic CHF, hypertension dyslipidemia COPD and lumbar spinal stenosis withchronic low back pain presented to [facility] on 10/27/2024 for an elective left heart [...] normal mood and affect documented in this [id number] NoteHMS PROGRESS NOTE Assessment and Plan Enoc Armando is a 78 y.o. male patient of Ryley Jeter MD with history of coronary artery disease, type 1 diabetes, diastolic CHF, hypertension dyslipidemia COPD and lumbar spinal stenosis with chronic low back pain presented to [facility] on 10/27/2024 for an elective left heart [...] affect AUTHENTICATED BY NIDIA GARAY, ON 10/28/2024 11:43:[address] [place] [address] 10-28-2024 Plan of care note* Plan of Care - Karthik Sandoval RN - 10/28/2024 9:11 AM EST Problem: Actual or potential alteration in health Goal: Absence of healthcare acquired conditions Outcome: Partially Met Goal: Knowledge of Interdisciplinary Plan of Care Outcome: Partially Met Goal: Knowledge of Enviroment Outcome: Partially Met Problem: Pressure Injury, Risk of Goal: Absence of pressure injury Outcome: Partially Met [id number] Progress note* Quick Note - Julia Chan RN - 10/28/2024 8:05 AM EST Patient stands at edge of bed to void and request to go to restroom. Patient does not want bedrest orders that are in place at this time. Patient is anxious for dc to home but appreciative with provided care. Bed alarm deputy commonwealth's attorney light in reach. [id number] Plan of care note* Plan of Care [...] continue to monitor and report any concerns. [id number] Progress note* Quick Note - Julia Chan [...] drip infusing and started at 6.6 units/hr. [address]AzdtVhxkux89-59-7325 Progress note* Quick Note - Julia Chan [...] excluding ice chips and sips with meds [id number] Progress note* Quick Note - Julia Chan RN - 10/27/2024 10:18 PM EST This RN received report from observation unit nurse via phone. [id number] Plan of care note* Plan of Care - Carlita Roth RN - 10/27/2024 9:42 PM EST Problem: Actual or potential alteration in health Goal: Absence of healthcare acquired conditions Outcome: Partially Met Goal: Knowledge of Interdisciplinary Plan of Care Outcome: Partially Met Goal: Knowledge of Enviroment Outcome: Partially Met [id number] History and physical note* Cintia Benitez MD - 10/27/2024 8:26 PM EST [facility] HISTORY AND PHYSICAL -- [facility] Patient Name: Enoc Armando : 1945 MR #: [id number] Admit Date: 10/27/2024 Physicians: Ryley Jeter MD (Family); No ref. provider found (Referring) Enoc Armando is a 78 y.o. male patient of Ryley Jeter MD with history of coronary artery disease, type 1 diabetes, diastolic CHF, hypertension dyslipidemia COPD and lumbar spinal stenosis withchronic low back pain presented to [facility] on 10/27/2024 for an elective left heart [...] with chronic low back pain presented to [facility] on 10/27/2024 for an elective left heart [...] Information I have reviewed the patient's allergies. Uvmsqrp-puw-qdq reductase inhibitors Home Medications Home medications were [...] normal coloration Psych: normal mood and affect [id number] NoteHMS HISTORY AND PHYSICAL -- [facility] Patient Name: Enoc Armando : 1945 MR #: [id number] Admit Date: 10/27/2024 Physicians: Ryley Jeter MD (Family); No ref. provider found (Referring) Enoc Armando is a 78 y.o. male patient of Ryley Jeter MD with history of coronary artery disease, type 1 diabetes, diastolic CHF, hypertension dyslipidemia COPD and lumbar spinal stenosis with chronic low back pain presented to [facility] on 10/27/2024 for an elective left heart [...] with chronic low back pain presented to [facility] on 10/27/2024 for an elective left heart [...] Information I have reviewed the patient's allergies. Oaqyuad-gbj-sgx reductase inhibitors Home Medications Home medications were [...] Skin: normal coloration Psych: (more content not included)...[facility]12-27-2024 History and physical note* Cintia Benitez MD - 10/27/2024 8:26 PM EST [facility] HISTORY AND PHYSICAL -- [facility] Patient Name: Enoc Armando : 1945 MR #: [id number] Admit Date: 10/27/2024 Physicians: Ryley Jeter MD (Family); No ref. provider found (Referring) Enoc Armando is a 78 y.o. male patient of Ryley Jeter MD with history of coronary artery disease, type 1 diabetes, diastolic CHF, hypertension dyslipidemia COPD and lumbar spinal stenosis withchronic low back pain presented to [facility] on 10/27/2024 for an elective left heart [...] with chronic low back pain presented to [facility] on 10/27/2024 for an elective left heart [...] Information I have reviewed the patient's allergies. Fnlgoyu-yoi-pmt reductase inhibitors Home Medications Home medications were [...] Enoc Armando Admit Date: 12261205 MR #: [id number] : 1945 The H&P has been reviewed [...] need for emergency surgery, need for pacemaker, ND, stroke, or cardiac arrest/. Patient voiced understanding and agreed to proceed. Sedation Plan: Moderate ASA Classification: ASA 3: A patient with severe systemic disease. Mallampati Score: Class III: Only the soft palate is visible Elías Rodriguez MD 10/27/2024 8:17 AM Source Note - Woo Small MD - 10/18/2024 1:20 PM EST General Cardiology New Patient Clinic Consult [facility], Heart & Vascular 10/18/2024 Woo Small MD [address] [place] [address] 3rd Floor Medical Office [facility] [address] Patient: Enoc Armando Date of : [...] No follow-ups on file. Woo Small MD, [facility] Non-Invasive Cardiology [facility] P:[phone] F:[phone] History of Present Illness: Enoc Armando is a 78 y.o. man with a past medical history of insulin-dependent diabetes for 30 years, history of tobacco use, recent COVID infection with systolic dysfunction ejection fraction ranging from 35 to 45% who presented initially to [facility]. He underwent stress testing which showedinferior wall abnormality as well as ejection fraction of 50%. I initially met with him back in January and he was doing quite well, however today he presents with progressive symptoms of fatigue, malaise, and a recent heart failure exacerbation at [facility] for hypertensive emergency and acute flash pulmonary [...] Cigarettes Smokeless Tobacco Never Allergies: Prednisone and Yaxiocf-lre-cjw reductase inhibitors All of the information has [...] 50%, rest LVEF 51%. Echocardiogram reviewed from [facility], 10/11/2023 moderately decreased ejection fraction [...] history suggesting prior/existing ASCVD documented in this [id number] Progress note* Quick Note - Zoila Pollard [...] stage IV kidney disease, BUN/creatinine: 92/2.60 respectively. [id number] Progress note* Quick Note - Mary Willis RN - 10/27/2024 12:[address] Rodriguez notified and at bedside to speak to patient r/g Critical potasium and elevated glucose. [id number] Attending History and physical note* Elías Rodriguez MD - 10/27/2024 8:17 AM EST INTERVAL HISTORY AND PHYSICAL Patient Name: Enoc Armando Admit Date: 12261205 [id number] 1945 The H&P has been reviewed [...] need for emergency surgery, need for pacemaker, ND, stroke, or cardiac arrest/. Patient voiced understanding and agreed to proceed. Sedation Plan: Moderate ASA Classification: ASA 3: A patient with severe systemic disease. Mallampati Score: Class III: Only the soft palate is visible Elías Rodriguez MD 10/27/2024 8:17 AM Source Note - Woo Small MD - 10/18/2024 1:20 PM EST General Cardiology New Patient Clinic Consult [facility] Heart [facility] 10/18/2024 Woo Small MD [address] [place] [address] 3rd Floor Medical Office [facility] [address] Patient: Enoc Armando Date of : [...] No follow-ups on file. Woo Small MD, [facility] Non-Invasive Cardiology [facility] P:[phone] F:[phone] History of Present Illness: Enoc Armando is a 78 y.o. man with a past medical history of insulin-dependent diabetes for 30 years, history of tobacco use, recent COVID infection with systolic dysfunction ejection fraction ranging from 35 to 45% who presented initially to [facility]. He underwent stress testing which showedinferior wall abnormality as well as ejection fraction of 50%. I initially met with him back in January and he was doing quite well, however today he presents with progressive symptoms of fatigue, malaise, and a recent heart failure exacerbation at [facility] for hypertensive emergency and acute flash pulmonary [...] Cigarettes Smokeless Tobacco Never Allergies: Prednisone and Ubtlxhf-rqu-bzx reductase inhibitors All of the information has [...] 50%, rest LVEF 51%. Echocardiogram reviewed from [facility], 10/11/2023 moderately decreased ejection fraction [...] a medical history suggesting prior/existing ASCVD [facility] Work Phone: 1(144) 945-517812-27-2024 Hospital Discharge instructions* Discharge Instructions* Sonya King RN - 10/27/2024 8:16 AM EST [facility] Post Cardiac Catheterization Discharge Instructions Site Care Leave Bandage in place the night of your catheterization. Watch for any bleeding or oozing from thesite. If this occurs, lie flat and place direct pressure on the bandage for 20 minutes. If bleedingreoccurs call [facility]. For groins, remove your bandage the following [...] shower 24 hours after the procedure. Call [facility] at [phone] if you notice any of the following: [...] need of prescription assistance, please notify the [facility] nurse or call the office. If you were prescribed Plavix (clopidogrel), Effient (prasugrel), or Brilinta (ticagrelar) after your procedure, DO NOT STOP taking this medication unless told to do so by your [facility] beauty school instructor. Follow up appointments, tests or procedures will be on your discharge paperwork under What's next. Please call [facility] at [phone] to reschedule any appointments if needed or if you have any questions or concerns. Thank you! documented in this [id number] Instructions* Patient Instructions* Luisa Easley RN - 10/18/2024 1:27 PM EST How to Contact your Care Team: Provider: Dr. Woo Small MD Clinic Nurse: Luisa Vega RN Clinic MA: Ej Guidry MA REFILLS: When in need for refills please call your care team or the office at [phone]. Please include medication name, pharmacy name, and specify 30-day or 90-day supply. Please check with your pharmacy within 24 hours of request for your refill. You must follow up as directed to continue current refills. Thank you! Heart Catheterization Date of your procedure: 10/27/2024 at 8:00am [facility] arrive at [facility]. Please park in the garage next to the medical office building. If needed, manager unit parking is available at the front entrance [...] questions or concerns please contact us at [phone]. documented in this [id number] History of Present illness Narrative* Woo Small MD - 10/18/2024 1:20 PM EST General Cardiology New Patient Clinic Consult [facility] 10/18/2024 Woo Small MD [address] [place] [address], 3rd Floor Medical Office [facility] [address] Patient: Enoc Armando Date of : [...] No follow-ups on file. Woo Small MD, [facility] Non-Invasive Cardiology [facility] P:[phone] F:[phone] History of Present Illness: Enoc Armando is a 78 y.o. man with a past medical history of insulin-dependent diabetes for 30 years, history of tobacco use, recent COVID infection with systolic dysfunction ejection fraction ranging from 35 to 45% who presented initially to [facility]. He underwent stress testing which showedinferior wall abnormality as well as ejection fraction of 50%. I initially met with him back in January and he was doing quite well, however today he presents with progressive symptoms of fatigue, malaise, and a recent heart failure exacerbation at [facility] for hypertensive emergency and acute flash pulmonary [...] Cigarettes Smokeless Tobacco Never Allergies: Prednisone and Gzdahxp-bmb-efc reductase inhibitors All of the information has [...] 50%, rest LVEF 51%. Echocardiogram reviewed from [facility], 10/11/2023 moderately decreased ejection fraction [...] history suggesting prior/existing ASCVD documented in this [id number] NoteGeneral Cardiology New Patient Clinic Consult [facility] Heart [facility] Vascular 10/18/2024 Woo Small MD [address] [place] [address], 3rd Floor Medical Office [place] [phone] Patient: Enoc Armando Date of : 1945 [...] No follow-ups on file. Woo Small MD, [facility] Non-Invasive Cardiology [facility] P:[phone] F:[phone] History of Present Illness: Enoc Armando is a 78 y.o. man with a past medical history of insulin-dependent diabetes for 30 years, history of tobacco use, recent COVID infection with systolic dysfunction ejection fraction ranging from 35 to 45% who presented initially to [facility]. He underwent stress testing which showed inferior wall abnormality as well as ejection fraction of 50%. I initially met with him back in January and he was doing quite well, however today he presents with progressive symptoms of fatigue, malaise, and a recent heart failure exacerbation at [facility] for hypertensive emergency and acute flash pulmonary [...] Cigarettes Smokeless Tobacco Never Allergies: Prednisone and Ujuclqm-zld-vdv reductase inhibitors All of the information has [...] 90 tablet, Rfl: 3 OXYGEN-AIR DELIVERY SYSTEMS [facility], Inhale 2 L/min See Admin Instructions ., Disp: , Rfl: tamsulosin (FLOMAX) 0.4 mg capsule, Take 1 ( (more content not included)...[facility] [id number] Telephone encounter Note* Telephone Encounter - Luisa Easley RN - 10/06/2024 2:45 PM EST Spoke with pt and reviewed Dr. Small's comments and suggestions. Pt was agreeable to starting Imdur 30mg daily and confirmed appt with Dr. Small on 10/18 at 1:20pm in the [place] location. Pt expressedappreciation and understanding. [id number] Telephone encounter Note* Telephone Encounter - Luisa [...] are involved abnormalities can be difficult to pepper picker Would he be okay coming in the [...] Woo Small MD We received everything from Raymond on him-I know we were waiting on this to see about changing things up ----- Message ----- From: Ej Guidry MA Sent: 10/04/2024 2:01 PM EST To: Luisa Easley RN Records from [facility] [id number] Miscellaneous Notes* Telephone Encounter - Luisa Easley RN - 10/06/2024 2:45 PM EST Spoke with pt and reviewed Dr. Small's comments and suggestions. Pt was agreeable to starting Imdur 30mg daily and confirmed appt with Dr. Small on 10/18 at 1:20pm in the [place] location. Pt expressedappreciation and understanding. * Telephone [...] are involved abnormalities can be difficult to pepper picker Would he be okay coming in the [...] EST To: Luisa Easley RN Records from [facility] documented in this [id number] [facility] 09-12-2024 [facility]10-29-2024 History of Present illness Narrative* Ayanna Albert, [...] DO 08/29/24 1:12 PM documented in this [facility] Work Phone: 1(483) 821-249809-20-2024 NotePatient ID: Enoc Armando is a 78 [...] High flow O2, C-pap, etc. Hospitalized in [facility] with CHF, pleural effusions and elevated [...] being taken. Patient does not see a mid level net developer. Eye exam is current. Currently taking: [...] Neurological: Mental Status: He (more content not included)...[facility]09-20-2024 History of Present illness Narrative* Paty Ortega, [facility] - 07/21/2024 1:58 PM EDT Images from [...] High flow O2, C-pap, etc. Hospitalized in [facility] with CHF, pleural effusions and elevated [...] being taken. Patient does not see a mid level net developer. Eye exam is current. Currently taking: [...] if BG <150 at HS. 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 Had bilat cataract extraction Dr. Lopez. Sees Dr. Browne in [place] every year routinely.Has blurred vision with low [...] Call if BG consistently <70 or >250. [phone] Continue to check blood sugar 3 times [...] CNP 07/21/24 1:21 PM documented in this [id number] Instructions* Patient Instructions* Luisa Easley RN - 04/24/2024 10:08 AM EDT How to Contact your Care Team: Provider: Dr. Woo Small MD Clinic Nurse: Luisa Easley RN Clinic MA: Ej Guidry MA REFILLS: When in need for refills please call your care team or the office at [phone]. Please include medication name, pharmacy name, and specify 30-day or 90-day supply. Please check with your pharmacy within 24 hours of request for your refill. You must follow up as directed to continue current refills. Thank you! documented in this [id number] History of Present illness Narrative* Woo Small MD - 04/24/2024 9:40 AM EDT General Cardiology New Patient Clinic Consult [facility] 04/24/2024 Woo Small MD [address] [place] [phone] Patient: Enoc Armando Date of : [...] 1 year (around 04/24/2025). Woo Small MD, [facility] Non-Invasive Cardiology [facility] P:[phone] F:[phone] History of Present Illness: Enoc Armando is a 78 y.o. man with a past medical history of insulin-dependent diabetes for 30 years, history of tobacco use, recent COVID infection with systolic dysfunction ejection fraction ranging from 35 to 45% who presented initially to [facility]. He underwent stress testing which showedno [...] Cigarettes Smokeless Tobacco Never Allergies: Prednisone and Urhmzrj-ihb-vqs reductase inhibitors All of the information has [...] 90 tablet, Rfl: 3 OXYGEN-AIR DELIVERY SYSTEM[facility], Inhale 2 L/min See Admin Instructions ., [...] 50%, rest LVEF 51%. Echocardiogram reviewed from [facility], 10/11/2023 moderately decreased ejection fraction [...] to 77 The patient has a prior ND or stroke diagnosis documented in this [id number] NoteGeneral Cardiology New Patient Clinic Consult [facility] 04/24/2024 Woo Small MD [address] [place] [phone] Patient: Enoc Armando Date of : 1945 [...] 1 year (around 04/24/2025). Woo Small MD, [facility] Non-Invasive Cardiology [facility] P:[phone] F:[phone] History of Present Illness: Enoc Armando is [...] Cigarettes Smokeless Tobacco Never Allergies: Prednisone and Jtejkhg-ecb-bmj reductase inhibitors All of the information has [...] (Patient taking differently: T (more content not included)...[facility]05-28-2024 Telephone encounter Note* Telephone Encounter - Ej Guidry MA - 03/28/2024 1:53 PM EDT Pt was last seen on 01/14/24 by Aylin Lacy CNP. Refills appropriate. Routing to Dr. Garay as Dr. Small is out of the office. [id number] Miscellaneous Notes* Telephone Encounter - Ej Guidry MA - 03/28/2024 1:53 PM EDT Pt was last seen on 01/14/24 by Aylin Lacy CNP. Refills appropriate. Routing to Dr. Garay as Dr. Small is out of the office. documented in this [id number] Evaluation + Plan note* Assessment & Plan Note - CULLEN Guzmán DNP - 02/24/2024 2:39 PM EDT Associated Problem(s): CKD (chronic kidney disease) Creatinine is stable at 1.92 and stable, stage IIIb, blood pressure is well controlled, diabetes well controlled, not using NSAIDs. [facility] Work Phone: 1(618) 991-464304-25-2024 Miscellaneous Notes* Assessment & Plan Note - [...] and metoprolol, no changes documented in this [facility] Work Phone: 1(793) 772-238104-25-2024 Evaluation + Plan note* Assessment & Plan Note - CULLEN Guzmán DNP - 02/24/2024 2:38 PM EDTAssociated Problem(s): Type 1 diabetes mellitus with diabetic neuropathy (Multi) Follows with endocrinology, is not to use SGLT2 due to Type I diabetes [facility] Work Phone: 1(919) 468-280104-25-2024 Evaluation + Plan note* Assessment & Plan Note - CULLEN Guzmán DNP - 02/24/2024 2:38 PM EDTAssociated Problem(s): Essential hypertension BP is well controlled on lisinopril and metoprolol, no changes [facility] Work Phone: 1(228) 223-117204-25-2024 History of Present illness Narrative* CULLEN Guzmán [...] DNP 02/24/24 1:50 PM documented in this [facility] Work Phone: 1(375) 862-950704-19-2024 History of Present illness Narrative* Paty Ortega [...] High flow O2, C-pap, etc. Hospitalized in [facility] with CHF, pleural effusions and elevated [...] being taken. Patient does not see a mid level net developer. Eye exam is current. Currently taking: [...] if BG <150 at HS. 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 Had bilat cataract extraction Dr. Lopez. Sees Dr. Browne in [place] every year routinely.Has blurred vision with low [...] Call if BG consistently <70 or >250. [phone] Continue to check blood sugar 3 times [...] CNP 02/18/24 1:21 PM documented in this [id number] Instructions* Patient Instructions* Robert Dominguez RN - 01/14/2024 11:46 AM EDT How to Contact your Care Team: Provider: Dr. Woo Small MD Clinic Nurse: Luisa Easley RN REFILLS: When in need for refills please call your care team or the office at [phone]. Please include medication name, pharmacy name, and specify 30-day or 90-day supply. Please check with your pharmacy within 24 hours of request for your refill. You must follow up as directed to continue current refills. Thank you! documented in this [id number] History of Present illness Narrative* Aylin Lacy CNP - 01/14/2024 11:00 AM EDT General Cardiology Returning Patient Clinic Visit [facility] 01/14/2024 Aylin Lacy CNP [address] 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 Small PCP: Ryley Jeter MD Chief Complaint: Transitional care appointment Date of Service: 01/14/2024 Assessment and Plan: Systolic dysfunction with recovery of ejection fraction -Euvolemic on exam -Continue lisinopril 5 mg daily -Continue metoprolol succinate 25 mg daily -Continue Lasix 20 mg twice daily -He is following with nephrology in [place]. He has an upcoming appointment and labs [...] Next scheduled follow up. Aylin Lacy, MSN, NURSE CHEMICAL DEPENDENCY, CLIENT SUPPORT ADMINISTRATOR-C, MEDICAL LABORATORY TECHNICIAN, ECG- General Cardiology [facility] History of Present Illness: Enoc Armando is a 78 y.o. man with a past medical history of hypertension, hyperlipidemia, insulin-dependent diabetes mellitus, CKD, smoker, emphysema, chronic hypoxemia and systolic dysfunction. He presents today for transitional care appointment. He was last seen in our office on 10/21/2023 by his primary beauty school instructor Dr. Small. Recent COVID infection at the end of last year and patient was notedto have systolic dysfunction with a ejection fraction ranging from 35 to 45%. He had left ventricular recovery noted on most recent echocardiogram from 11/30/2023, LVEF 63%. He presented to the [facility] on 11/27/2023 with complaints of respiratory distress. [...] 25.50 Types: Cigarettes Smokeless Tobacco Never Allergies: Skiqsbh-sqv-cih reductase inhibitors All of the above information [...] 15 mL, Rfl: 11 OXYGEN-AIR DELIVERY SYSTEMS [facility], Inhale 2 L/min See Admin Instructions ., [...] to 77 The patient has a prior ND or stroke diagnosis documented in this [id number] Telephone encounter Note* Telephone Encounter - Ej [...] to Dr. Small for her to sign. [id number] Miscellaneous Notes* Telephone Encounter - Ej Guidry [...] for her to sign. documented in this [id number] Miscellaneous Notes* Quick Note - Ellie Aguilar CNP - 12/01/2023 11:20 AM EST [id number] ENCOUNTER FOR HOME MEDICAL EQUIPMENT PATIENT: Enoc Armando : 1945 Statement of Care: I certify that Enoc Armando is under my care and that I, a Nurse Practitioner, Physician's Maintenance Apprentice, or Resident working with me, had a elnk-kd-nnlm encounter with this patient yesterday to evaluate and discuss the need for home medical equipment. I certify that based on the findings of this evaluation, which included but was not limited to the usyt-hh-msdz requirements, the following home medical equipment is medically necessary: Rollator forthe treatment of mobility limitations to enable participation in mobility-related activities of daily living (MRADL) in the home. Based on the current evaluation, patient can safely use prescribed equipment to perform mobility-related activities of daily living (MRADL) in the home.. Signed by: Ellie Aguilar CNP on 12/01/2023 * Plan of Care - Blnaco Olivera RN - 12/01/2023 5:25 AM EST [...] EST Query 2 of 2 Noted 11/27 [facility] HP PMHx documentation of CKD Clinical Indicators: [...] ESRD Thank you, Aubree CRAWFORD,RN Clinical Documentation csr retail After business hours you may contact Ebony Anne at [phone] (Weekdays until 10 PM and weekends 8 AM -10 PM) * CDI Query - Cintia Benitez MD - 11/29/2023 6:14 AM EST Noted 11/27 [facility] documentation of heart failure. Clinical Indicators: 11/27 [facility] HP: CHF....-Continue IV Lasix, check I's and [...] crackles at base Test results: 11/27: BNP: 49146 Please specify the acuity and type of heart failure in the progress notes. For Example: Acute on chronic systolic CHF POA Chronic systolic CHF, no acute exacerbation Other (please specify) Thank you, Aubree CRAWFORD,RN Clinical Documentation Silica Dry Press Helper After business hours you may contact Ebony Anne at [phone] (Weekdays until 10 PM and weekends 8 [...] currently. Priscilla Aranda RDN, LD Dietitian's Office [phone] * John Note - Carlita Lazaro RRT [...] - Brief Progress Note PERMANENT 11/27/2023 04:43 [facility] CCU ENOC ARMANDOElizbaet Date of Service 11/27/2023 04:43 HPI/Events of [...] 37. Patient placed onbipap and Norma Geiger LEAD ESTHETICIAN notified. Patient was then transferred to MICU [...] came to room and replaced on bipap. LEAD ESTHETICIAN came to see patient and request patient [...] Informed RT that patient has arrived from [place] [facility]. Attempt to let dr Pereira aware of arrival from [facility] no answer will leave message. documented in this [id number] Hospital course Narrative* Ellie Aguilar CNP - 12/01/2023 11:03 AM EST [facility] DISCHARGE SUMMARY -- [facility] Eonc Armando Admitted: 11/27/2023 Discharge Date: 12/01/23 PCP Handoff Recommended Outpatient Testing None Results Pending At Discharge None Clinical Summary Enoc Armando is a 77 y.o. male patient of Ryley Jeter MD with history of HTN, HLD, DM Type I, CKD, COPD, chronic hypoxemic respiratory failure who presented to [facility] with respiratory distress . Severe Sepsis Present [...] Ryley Jeter MD [address] [facility] [phone] Follow up Please call to schedule a [...] on 12/01/23, 11:10 AM documented in this [id number] History of Present illness Narrative* Jody Hammodns, CHANGE OF ADDRESS CLERK - 12/01/2023 10:20 AM EST Physical Therapy [...] Static: Supervision, without UE support, with device Machine Former - Standing Static: wheeled walker Loss of Balance- Standing Static: (none) Standing Balance - Dynamic: Stand by assist Machine Former - Standing Dynamic: wheeled walker Loss of Balance- Standing Dynamic: (none) Bed Mobility Supine to Sit: Contact guard assist, Head of bed elevated Machine Former: (none) Skilled Intervention Provided: verbal cues, monitoring patient response with activity, environmental setup/modification, facilitation, provided step by step instructions For: efficient movement, safety during functional tasks, sequencing of movement Resulting in: improved activity tolerance, improved functional independence, improved performance, improved safety, increased upright tolerance for functional tasks Transfers Sit to Stand: Stand by assist Machine Former: BUE, wheeled walker Additional Transfer Trial 2: Yes Sit to Stand Trial 2: Stand by assist Machine Former Trial 2: wheeled walker, BUE Skilled Intervention [...] O2;) Prior Level of Function Level of [place] - Transfers/Ambulation/Mobility: Independent with functional transfers, Independent with household ambulation, Independent with community ambulation (no AD for in home ambulation, intermitant use of cane in community for longer distances) Level of [place] - ADLs: Independent Level of [place] - Homemaking: ( takes care of all [...] Enoc Armando Admit Date: 11/27/2023 MR #: [id number] : 1945 Current location: [facility] Physicians: Ryley Jeter MD (Family); Britton [...] NST in a week, spoke with his beauty school instructor Dr. Small, who will arrange to have [...] CHF, hypertension, hyperlipidemia, emphysema who presented to [facility] emergency department with a complaint of [...] T CO2 17. He was transferred to [facility] for further evaluation and treatment. At the [...] platelet count 220,000 Allergies: Allergies Allergen Reactions Vkwjhps-Xhr-Zgv Reductase Inhibitors Muscle cramps Home Medications: Outpatient [...] Enoc Armando Admit Date: 1261205 MR #: [id number] : 1945 Physicians: Ryley Jeter MD (Family); Ger Bansal DO (Referring) Assessment: Patient with 1. Respiratory failure 2. Suspicion for pneumonia 3. Possible congestive heart failure 4. Non-ST elevation ND. 5. History of COVID-19 infection. Plan: Continue patient on current therapy Continue patient on IV azithromycin Continue on ceftriaxone From [facility] 5 weeks ago patient was status [...] is stable. Previous x-ray at [facility] had shown congestive changes and edema on [...] 97.9 F (36.6 C) SpO2: 94% Allergies: Pjxyjaz-kvf-amk reductase inhibitors Medications Reviewed. Current Facility-Administered Medications: [...] injection 20 mg, 20 mg, Intravenous, Q12H [facility], Iraida Alvarado CNP, 20 mg at 12/01/23 [...] excoriations Musculoskeletal: No joint swelling, non tender MANUFACTURING TECHNOLOGIST: Awake, and Ox3 Wound: No Osborne Catheter: [...] Bilateral infrahilar patchy opacities, concerning for pneumonia. [employer] Workstation ID: [id number] Laboratory and Additional Data [...] Aguilar CNP - 11/30/2023 9:26 AM EST [facility] PROGRESS NOTE Assessment and Plan Enoc Armando is a 77 y.o. male patient of Ryley Jeter MD with history of HTN, HLD, DM Type I, CKD, COPD, chronic hypoxemic respiratory failure who presented to [facility] with respiratory distress . Severe Sepsis Present [...] Enoc Armando Admit Date: 1261205 MR #: [id number] : 1945 Physicians: Ryley Jeter MD (Family); Ger Bansal DO (Referring) Assessment: Patient with 1. Respiratory failure 2. Suspicion for pneumonia 3. Possible congestive heart failure 4. Non-ST elevation ND. 5. History of COVID-19 infection. Plan: Continue patient on current therapy Continue patient on IV azithromycin Continue on ceftriaxone From [facility] 5 weeks ago patient was status [...] is stable. Previous x-ray at [facility] had shown congestive changes and edema on [...] 97.7 F (36.5 C) SpO2: 97% Allergies: Sgwypfp-ify-gwh reductase inhibitors Medications Reviewed. Current Facility-Administered Medications: [...] excoriations Musculoskeletal: No joint swelling, non tender MANUFACTURING TECHNOLOGIST: Awake, and Ox3 Wound: No Osborne Catheter: [...] Enoc Armando Admit Date: 11/27/2023 MR #: [id number] : 1945 Current location: [facility] Physicians: Ryley Jeter MD (Family); Britton [...] CHF, hypertension, hyperlipidemia, emphysema who presented to [facility] emergency department with a complaint of [...] T CO2 17. He was transferred to [facility] for further evaluation and treatment. At the [...] platelet count 220,000 Allergies: Allergies Allergen Reactions Xkdpfkw-Dxv-Tpw Reductase Inhibitors Muscle cramps Home Medications: Outpatient [...] you. Mary Vargas MD * Alfred Pabon, DISABILITY SPECIALIST - 11/29/2023 3:06 PM EST Patient Name: Enoc Armando Admit Date: 1261205 MR #: [id number] : 1945 Physicians: Ryley Jeter MD (Family); Ger Bansal DO (Referring) Assessment: Patient with 1. Respiratory failure 2. Suspicion for pneumonia 3. Possible congestive heart failure 4. Non-ST elevation ND. 5. History of COVID-19 infection. Plan: Continue patient on current therapy Continue patient on IV azithromycin Continue on ceftriaxone From [facility] 5 weeks ago patient was status [...] is stable. Previous x-ray at [facility] had shown congestive changes and edema on [...] 97.9 F (36.6 C) SpO2: 97% Allergies: Lmheorr-xrg-hzz reductase inhibitors Medications Reviewed. Current Facility-Administered Medications: [...] injection 20 mg, 20 mg, Intravenous, Q12H [facility], Iraida Alvarado CNP, 20 mg at 11/29/23 [...] excoriations Musculoskeletal: No joint swelling, non tender MANUFACTURING TECHNOLOGIST: Awake, and Ox3 Wound: No Osborne Catheter: None IV Access: yes I reviewed Medications. I reviewed Labs. XR Chest 1 View Final Result Bilateral infrahilar patchy opacities, concerning for pneumonia. [employer] Workstation ID: [id number] Echocardiogram complete (Results Pending) [...] Benitez MD - 11/29/2023 1:37 PM EST [facility] PROGRESS NOTE Assessment and Plan Enoc Armando is a 77 y.o. male patient of Ryley Jeter MD with history of HTN, HLD, DM Type I, CKD, COPD, chronic hypoxemic respiratory failure who presented to [facility] with respiratory distress . Severe Sepsis Present [...] Enoc Armando Admit Date: 11/27/2023 MR #: [id number] : 1945 Current location: [facility] Physicians: Ryley Jeter MD (Family); Britton [...] CHF, hypertension, hyperlipidemia, emphysema who presented to [facility] emergency department with a complaint of [...] T CO2 17. He was transferred to [facility] for further evaluation and treatment. At the [...] platelet count 220,000 Allergies: Allergies Allergen Reactions Eiichib-Uvw-Fzl Reductase Inhibitors Muscle cramps Home Medications: Outpatient [...] sodium chloride (PF) 5 mL Intravenous Q8H [facility] acetaminophen, dextrose, heparin, ipratropium-albuteroL, [COMPLETED] Insert Indwelling [...] Cardiology Inpatient Follow-up Heart & Vascular [facility] 11/28/2023 Iraida Alvarado CNP [facility] Patient: Enoc Armando Date of : 1945 [...] - EKG showed SR suggest previous anterior ND, minor ST depression laterally similar to 10/11/2023 [...] is orient x 3. Telemetry: SR Allergies: Bwqggyl-cqy-awq reductase inhibitors Review of Systems: The following [...] in Direct Patient Care: 15 Narrative: This mobile game engineer visited the pt., Enoc, while rounding. Introduced [...] of his children and grandchildren. 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 This mobile game engineer helped the pt explore their feelings about their hospitalization and identify sources of support. This mobile game engineer provided information about Pastoral Care services and how to contact a mobile game engineer. Pastoral Care team will remain available to support patient and family PRN. 11/28/23 1116 Visit Background Visit With Patient Visit By Staff Rug Measurer Visit Progression Introduction Visit Requested By Rug Measurer Initiated Visit Source Rug Measurer Initiated Visit Type Inpatient;Rounding Visit Circumstances and Events Routine Visit Visit Length (minutes) 15 Patient's Response to Pastoral Care Appeared to be well-engaged;Expressed Gratitude for Visit Visit Planning PRN;Pt aware to contact Rug Measurer as needed Spiritual Assessment Assessed during this visit Jewish Assessment Not assessed during this visit Family [...] Facilitated Interventions Active Listening;Explained Role of the Rug Measurer;Explored thoughts/feelings associated with current hospitalization;Relationships Spiritual/Emotional Outcomes Appreciative;Gratitude Spiritual Plan of Care Continue Healing Process;Receive Spiritual Support Signature: Kalani Claros MDiv Staff Rug Measurer [facility] 24hr On-Call /Adriana On-Call Rug Measurer She/Her/Hers * Cintia Benitez MD - 11/28/2023 10:49 AM EST [facility] PROGRESS NOTE Assessment and Plan Enoc Armando is a 77 y.o. male patient of Ryley Jeter MD with history of HTN, HLD, DM Type I, CKD, COPD, chronic hypoxemic respiratory failure who presented to [facility] with respiratory distress . Severe Sepsis Present [...] Enoc Armando Admit Date: 1261205 MR #: [id number] : 1945 Physicians: Ryley Jeter MD (Family); Ger Bansal DO (Referring) Assessment: Patient with 1. Respiratory failure 2. Suspicion for pneumonia 3. Possible congestive heart failure 4. Non-ST elevation ND. 5. History of COVID-19 infection. Plan: Continue patient on current therapy Continue patient on IV azithromycin Continue on ceftriaxone From [facility] 5 weeks ago patient was status [...] is stable. Previous x-ray at [facility] had shown congestive changes and edema on [...] 97.7 F (36.5 C) SpO2: 97% Allergies: Fbrtkhr-zol-qhi reductase inhibitors Medications Reviewed. Current Facility-Administered Medications: [...] excoriations Musculoskeletal: No joint swelling, non tender MANUFACTURING TECHNOLOGIST: Awake, and Ox3 Wound: No Osborne Catheter: [...] Enoc Armando Date of : 1945 Site: [facility] Provider: Prashant Cesar MD ASSESSMENT/PLAN: Enoc Armando 77 y.o. male transferred last night for resp distress, NSTEMI, hypergllycemia from [facility] Three weeks ago testing positive for Covid and then diagnosed with pneumonia. He has been treated as an outpatient with oral antibiotics. He has been experiencing intermittent midsternal chest pain for the past 3 weeks On arrival to [facility], he was placed on NIPPV [...] Azithromycin/Ceftriaxone Cardiovascular: Troponin 2361 BNP 16,730 Prior ND NSTEMI Cardiology consulted Heparin gtt Neuro/Muscular: Alert [...] flush 5 mL 5 mL Intravenous Q8H [facility] Norma Geiger CNP 5 mL at 11/28/23 [...] Enoc Armando Admit Date: 11/27/2023 MR #: [id number] : 1945 Current location: [facility] Physicians: Ryley Jeter MD (Family); Britton [...] CHF, hypertension, hyperlipidemia, emphysema who presented to [facility] emergency department with a complaint of [...] T CO2 17. He was transferred to [facility] for further evaluation and treatment. At the [...] platelet count 220,000 Allergies: Allergies Allergen Reactions Koxhvju-Sry-Jxy Reductase Inhibitors Muscle cramps Home Medications: Outpatient [...] Enoc Armando Date of : 1945 Site: [facility] Provider: Prashant Cesar MD ASSESSMENT/PLAN: Enoc Armando 77 y.o. male transferred last night for resp distress, NSTEMI, hypergllycemia from [facility] Three weeks ago testing positive for Covid and then diagnosed with pneumonia. He has been treated as an outpatient with oral antibiotics. He has been experiencing intermittent midsternal chest pain for the past 3 weeks On arrival to [facility], he was placed on NIPPV [...] 30% Cardiovascular: Troponin 2361 BNP 16,730 Prior ND NSTEMI Cardiology consulted Heparin gtt Neuro/Muscular: Alert [...] flush 5 mL 5 mL Intravenous Q8H [facility] oNrma Geiger CNP 5 mL at 11/27/23 0515 And sodium chloride 0.9% (NS) 0-150 mL/hr Intravenous PRN Norma Geiger CNP [x] Medications reviewed. [x] Labs reviewed. Pertinent findings noted: [x] Radiology reviewed. Pertinent findings noted: [] Pathology reviewed. Pertinent findings noted: Family Update/ Code Status: Full code Laboratory and Additional Data Reviewed: Reviewed 11/27/23 8:35 AM: Laboratory and Microbiology documented in this [id number] Consult note* Domenica Torre RN - 11/30/2023 [...] Balance - Static: Supervision, without UE support Machine Former - Standing Static: (no device) Standing Balance - Dynamic: Stand by assist, Contact guard assist (without device; sba/ supervisionwith rollator) Machine Former - Standing Dynamic: (trialed with and without rollator) Loss of Balance- Standing Dynamic: (left path deviation unsteadiness without device; no LOB with use of rollator and gait steadiness much improved.) Bed Mobility Rolling: Modified independent, Head of bed flat Supine to Sit: Modified independent, Head of bed flat Sit to Supine: (NT: pt up in chair post PT session) Machine Former: (none) Transfers Sit to Stand: Stand by assist Bed to Chair: Stand by assist, Contact guard assist (no device) Stand Pivot Transfers: Stand by assist, Contact guard assist (no device) Machine Former: (no AD) Additional Transfer Trial 2: Yes Sit to Stand Trial 2: Stand by assist (from chair with karin ue support) Machine Former Trial 2: BUE Additional Transfer Trial 3: Yes Sit to Stand Trial 3: Stand by assist (from locked rollator seat) Machine Former Trial 3: (locked rollator handles) Gait/Locomotion Gait [...] O2;) Prior Level of Function Level of [place] - Transfers/Ambulation/Mobility: Independent with functional transfers, Independent with household ambulation, Independent with community ambulation (no AD for in home ambulation, intermitant use of cane in community for longer distances) Level of [place] - ADLs: Independent Level of [place] - Homemaking: ( takes care of all [...] at discharge. Pt declined PT services at mo. Pt up in chair post PT session. [...] Oral Daily furosemide 20 mg Intravenous Q12H [facility] insulin glargine 16 Units Subcutaneous Nightly lispro insulin 0-15 Units Subcutaneous at bedtime insulin lispro 0-30 Units Subcutaneous Daily before lunch insulin lispro 0-30 Units Subcutaneous Before dinner [START ON 11/30/2023] insulin lispro 0-30 Units Subcutaneous QAM AC metoprolol succinate 25 mg Oral Daily sodium chloride (PF) 5 mL Intravenous Q8H [facility] Continuous Infusions: heparin infusion (weight based dosing) 16 Units/kg/hr (11/29/23 0616) heparin sodium chloride 0.9 % Estimated Energy Needs Total Energy Estimated Needs: 5607-7703 kcal/d Method for Estimating Needs: 25-30 kcal/kg current wt Total Protein Estimated Needs: 65 g/d Method for Estimating Needs: 1 g/kg current wt Grazyna Obregon RDN, LD, CLC Office * Chaya Mayfield RN - 11/29/2023 9:30 AM ESTAssociated Order(s): IP CONSULT TO MANAGER OF DRILLING Met with pt for diabetes education. States [...] 4:07 PM ESTAssociated Order(s): IP CONSULT TO MANAGER INTERVENTIONAL See earlier consult * Gaudencio Pabon MD - 11/27/2023 2:50 PM EST Patient Name: Enoc Armando MR #: [id number] : 1945 Physicians: Ryley Jeter MD (Family); [...] COVID-19 infection, and then was admitted in [facility]. At that time he was having respiratory failure, and also was having bilateral infiltrates and was found with echocardiogram with ejection fraction of 35%. At [facility], patient was treated with BiPAP, ceftriaxone, [...] failure, [place] [address], And troponin of 9000. Patient also had [...] Information: I have reviewed the patient's allergies. Dopdime-ejx-vek reductase inhibitors Review of Systems: Review of [...] Bilateral infrahilar patchy opacities, concerning for pneumonia. [employer] Workstation ID: [id number] Echocardiogram complete (Results Pending) [...] Possible congestive heart failure 4. Non-ST elevation ND. 5. History of COVID-19 infection. Plan. Continue patient on current therapy Patient currently on IV azithromycin Patient on ceftriaxone From [facility] 5 weeks ago patient was status [...] is stable. Previous x-ray at [facility] had shown congestive changes and edema on [...] Enoc Armando Admit Date: 11/27/2023 MR #: [id number] : 1945 Current location: [facility] Physicians: Ryley Jeter MD (Family); Britton [...] CHF, hypertension, hyperlipidemia, emphysema who presented to [facility] emergency department with a complaint of [...] T CO2 17. He was transferred to [facility] for further evaluation and treatment. At the [...] platelet count 220,000 Allergies: Allergies Allergen Reactions Glzrhum-Yng-Fuo Reductase Inhibitors Muscle cramps Home Medications: Outpatient [...] reviewed showed sinus rhythm suggest previous anterior ND minor ST depression laterally similar to 10/11/2023 [...] testing positive initially he was hospitalized at [facility] on BiPAP. Communication is a [...] Information: I have reviewed the patient's allergies. Gxjkqoy-yxn-sqy reductase inhibitors Home Medications: Outpatient Medications as [...] Enoc Armando Admit Date: 1261205 MR #: [id number] : 1945 Physicians: Ryley Jeter MD (Family); Ger Bansal DO (Referring) Julia Parker MD documented in this [id number] History and physical note* Norma Geiger CNP - 11/27/2023 3:12 AM EST [facility] HISTORY AND PHYSICAL -- [facility] Patient Name: Enoc Armando : 1945 MR #: [id number] Admit Date: 11/27/2023 Physicians: Ryley Jeter MD (Family); Ger Bansal DO (Referring) Enoc Armando is a 77 y.o. male patient of Ryley Jeter MD with history of HTN, HLD, DM Type I, CKD, COPD, chronic hypoxemic respiratory failure who presented to [facility] with respiratory distress . Severe Sepsis Present [...] DKA protocol. Consult endocrinology, DM education, and nuclear control operator Essential Hypertension Dyslipidemia Continue amlodipine, metoprolol, ezetimibe [...] of Ryley Jeter MD, who presented to [facility] with respiratory distress. The patient states [...] discomfort with associated diaphoresis. On arrival to [facility], he was placed on NIPPV [...] Information I have reviewed the patient's allergies. Wyenrzq-gwl-szy reductase inhibitors Home Medications Home medications were [...] Benitez MD - 11/27/2023 3:27 PM EST [facility] NOTE ADDENDUM I saw and examined the [...] chronic hypoxemic respiratory failure who presented to [facility] with respiratory distress . 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 EMS reports an O2 level in [...] ask the patient if he had a beauty school instructor and he said yes. Patient sees Dr. Small at [place] and is scheduled to have a stress test next week. Patient has denied any chest pain his entire time here. I did speak to the beauty school instructor on-call Dr. Parker and she agreed with a dose of IV Lasix and starting the patient on heparin which will be done. Patient is improved at present but we will continue to monitor the patient until a bed becomes available at [place]. The patient has been accepted by the [...] History Past Medical History: Diagnosis Date Diabetes ([facility]) History reviewed. No pertinent surgical history. Family [...] performed using a different testing methodology at [facility] than at other [facility]. Direct result comparisons should only [...] is performed using different testing methodology at [facility] than at other [facility]. Direct result comparisons should only [...] performed using a different testing methodology at [facility] than at other [facility]. Direct result comparisons should only [...] Ghassan Tovar 11/26/2023 10:02 PM Dictation workstation: [id number] Medical Decision Making Patient will be transferred in stable condition to [facility] in [place]. 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 EMS reports an O2 level in [...] ask the patient if he had a beauty school instructor and he said yes. Patient sees Dr. Small at [place] and is scheduled to have a stress test next week. Patient has denied any chest pain his entire time here. I did speak to the beauty school instructor on-call Dr. Parker and she agreed with a dose of IV Lasix and starting the patient on heparin which will be done. Patient is improved at present but we will continue to monitor the patient until a bed becomes available at [place]. The patient has been accepted by the [...] performed using a different testing methodology at [facility] than at other [facility]. Direct result comparisons should only [...] is performed using different testing methodology at [facility] than at other [facility]. Direct result comparisons should only [...] performed using a different testing methodology at [facility] than at other [facility]. Direct result comparisons should only [...] Ghassan Tovar 11/26/2023 10:02 PM Dictation workstation: [id number] Medical Decision Making Patient will be transferred in stable condition to [facility]. Procedure Critical Care Performed by: [...] another facility Ger Bansal DO 11/27/23 0119 [facility] Work Phone: 1(656) 237-456501-02-2024 History of Present illness Narrative* Mary Vargas MD - 11/02/2023 4:50 PM EST Patient called and reported that he needs Humalog Rx changed due to formulary change. Rx mailed forAdmelog Solostar 15 ml, 11 refills. CD documented in this [id number] History of Present illness Narrative* Woo Small MD - 10/21/2023 9:00 AM EST General Cardiology New Patient Clinic Consult [facility], Heart & Vascular 10/21/2023 Woo Small MD [address] [place] [address] Medical Office [facility] [id number] Patient: Enoc Armando Date of : [...] 6 months (around 04/21/2024). Woo Small MD, [facility] Non-Invasive Cardiology [facility] P:[phone] F:[phone] History of Present Illness: Enoc Armando is a 77 y.o. man with a past medical history of insulin-dependent diabetes for 30 years, history of tobacco use, recent COVID infection with systolic dysfunction ejection fraction ranging from 35 to 45% who presents today to establish care. Patient states that he was critically ill andhospitalized at [facility], on BiPAP. Prior to hospitalization [...] 25.50 Types: Cigarettes Smokeless Tobacco Never Allergies: Ugrqpqs-pbo-tge reductase inhibitors All of the information has [...] appropriate conversation Cardiovascular Studies: Echocardiogram reviewed from [facility] [facility] moderately decreased ejection fraction [...] Total Cholesterol: 156 mg/dL documented in this [id number] Instructions* Patient Instructions* Luisa Easley RN - 10/21/2023 8:54 AM EST How to Contact your Care Team: Provider: Dr. Woo Small MD Clinic Nurse: Luisa Easley, RN REFILLS: When in need for refills please call your care team or the office at [phone]. Please include medication name, pharmacy name, and [...] questions please contact your care team or [phone]. documented in this [id number] Nurse Note* Moody Gorman RN - 10/13/2023 7:25 PM EST Pt IVs removed intact, home O2 has just been delivered and family given instruction by [employer]. Pt leaving by wheelchair to discharge doors, daughter driving. [facility]2023 Nurse Note* Moody Gorman RN - [...] - 10/11/2023 10:00 AM EST , Alice ([phone]), called and requesting and update. Update provided. [...] HR 112, RR 24. documented in this [facility] Work Phone: [phone] Nurse Note* Geni Lynne RN - 10/13/2023 3:56 PM EST Discharge instructions reviewed with pt. Printed and verbal education given on covid, chf, and homeoxygen use/safety. Pt verbalized understanding of all instructions. Walker rx written by dr rivera. Awaiting home oxygen set up. [facility]2023 Hospital Discharge instructions* Discharge Instr - Other Orders* eGni Lynne RN - 10/13/2023 3:38 PM EST [...] or approved for treating a specific patient. [employer] and its affiliatesdisclaim any warranty or liability relating to this information or the use thereof. The use of thisinformation is governed by the Terms of Use, available at https://www.Veoh[employer]/en/know/gnlfuzsl-pjhybdoieriza-bbatv Copyright 2022 [employer] and its affiliates and/or licensors. All rights [...] or approved for treating a specific patient. [employer] and its affiliatesdisclaim any warranty or liability relating to this information or the use thereof. The use of thisinformation is governed by the Terms of Use, available at https://www.Veoh.com/en/know/krzlgatw-mfdrlirrdpyyi-reydh Copyright 2022 [employer] and its affiliates and/or licensors. All rights [...] Do not take any other prescription drugs, zgbm-gzl-lcxiegb (OTC) drugs, herbals, or diet aids without [...] diet are needed? Ask your doctor or nuclear control operator what diet is best for you. The [...] or approved for treating a specific patient. [employer] and its affiliatesdisclaim any warranty or liability relating to this information or the use thereof. The use of thisinformation is governed by the Terms of Use, available at https://www.Veoh.com/en/know/epsybons-djrxoiogzpbwj-ihtlt Copyright 2022 [employer] and its affiliates and/or licensors. All rights reserved. documented in this [facility] Work Phone: [phone]) 778-215612-13-2023 Miscellaneous Notes* Documentation Clarification Note - Vera Mari MD - 10/13/2023 3:06 PM EST PATIENT: ENOC ARMANDO : 1945 ADMIT DATE: 10/11/2023 1:08 AM DISCH DATE: RESPONDING PROVIDER #: [id number] PROVIDER RESPONSE TEXT: Sepsis with associated respiratory [...] hypoxia], hypertensive emergency, hyperglycemia, and elevated troponin. Creative Intern consult documents Acute hypoxemic respiratory failure. Treatment: [...] Continue with current management. documented in this [facility] Work Phone: [phone]) 870-997112-13-2023 Note* Documentation Clarification Note - Vera Mari MD - 10/13/2023 3:06 PM EST PATIENT: ENOC ARMANDO : 1945 ADMIT DATE: 10/11/2023 1:08 AM DISCH DATE: RESPONDING PROVIDER #: [id number] PROVIDER RESPONSE TEXT: Sepsis with associated respiratory [...] hypoxia], hypertensive emergency, hyperglycemia, and elevated troponin. Creative Intern consult documents Acute hypoxemic respiratory failure. Treatment: [...] by: VERA RIVERA MD 10/13/2023 3:05 PM [facility] Work Phone: [phone] 700-190412-13-2023 History of Present illness Narrative* JENNIFER Almanza [...] Prior Function Per Pt/Caregiver Report Level of Bullitt: Independent with ADLs and functional transfers, Independent [...] length Comments/Distance (ft) 1: 88ft Outcome Measures: [facility] Basic Mobility Turning from your back to [...] 1 Start: 10/13/23 Expected End: 10/26/23 Enoc Amrando will be independent with bed mobility for [...] Bathroom Equipment: None Prior Function: Level of Bull[place]: Independent with ADLs and functional transfers, Independent [...] Function: Gross Grasp: Functional Coordination: Functional Outcome Measures:[facility] Daily Activity Putting on and taking off [...] 10/13/23 Expected End: 10/27/23 * Phylicia Reyes APRN-DISABILITY SPECIALIST, DNP - 10/13/2023 10:18 AM EST Subjective Data: Patient examined and denies any chest pain/pressure/discomfort, palpitations, worsening SOB, dizziness, or lower extremity edema. He does not currently follow with a Real Property Evaluator. Overnight Events: None Objective Data: Last Recorded [...] result verified on 10/11/2023 0209 on specimen/case [id number] called with component [facility] for procedure Troponin I, High Sensitivity, Initial [...] 13-18 <7.5 7-12 <8.0 0- 6 7.5-8.5 [employer]. Diabetes Care 33(S1), Nov 2009. 02/12/2023 08:57 AM 7.7 % Final Comment: Diagnosis of Diabetes-Adults Non-Diabetic: < or = 5.6% Increased risk for developing diabetes: 5.7-6.4% Diagnostic of diabetes: > or = 6.5% . Monitoring of Diabetes Age (y) Therapeutic Goal (%) Adults: >18 <7.0 Pediatrics: 13-18 <7.5 7-12 <8.0 0- 6 7.5-8.5 [employer]. Diabetes Care 33(S1), Nov 2009. [...] Assessment Information (1): baseline creat 1.6-1.9 per electroplating worker; A1C 7.4 09/27, 7.6 06/11l Nutrition Diagnosis [...] result verified on 10/11/2023 0209 on specimen/case [id number] called with component [facility] for procedure Troponin I, High Sensitivity, Initial [...] 13-18 <7.5 7-12 <8.0 0- 6 7.5-8.5 [employer]. Diabetes Care 33(S1), Nov 2009. 02/12/2023 08:57 AM 7.7 % Final Comment: Diagnosis of Diabetes-Adults Non-Diabetic: < or = 5.6% Increased risk for developing diabetes: 5.7-6.4% Diagnostic of diabetes: > or = 6.5% . Monitoring of Diabetes Age (y) Therapeutic Goal (%) Adults: >18 <7.0 Pediatrics: 13-18 <7.5 7-12 <8.0 0- 6 7.5-8.5 [employer]. Diabetes Care 33(S1), Nov 2009. [...] around 1.8,arthritis and smoking. Came to ED [facility] on 10/11/2023 complaining of shortness of [...] to discharge. If not possible, should have [facility] as an outpatient. - Due [...] MD - 10/12/2023 11:17 AM EST Enoc rAmando is a 77 y.o. male on day [...] on 10/11/2023 6:18:47 PM Transthoracic Echo (TTE) [place] [address] [phone], TRANSTHORACIC ECHOCARDIOGRAM REPORT Patient Name: ENOC ARMANDO Reading Physician: [id number] Jose Enrique Molina MD Study Date: 10/11/2023 Ordering Provider: [id number] VERA RIVERA MRN/PID: [id number] Fellow: Nurse: Jana See RN Date of /Age: 2 1945 / 77 years Maintenance Groundman: Cecilio Gabriel RDCS Gender: M Additional Staff: Height: 170.18 cm Admit Date: Weight: 71.67 kg Admission Status: Inpatient - Routine BSA: 1.83 m2 Department Location: [address]-ICU Blood Pressure: 141 /71 mmHg Study Type: TRANSTHORACIC ECHO (TTE) COMPLETE Diagnosis/ICD: Acute on chronic systolic (congestive) heart failure (CHF)-I50.23 CPT Codes: Echo Complete w Full Doppler-91296 Study Detail: The following Echo studies were [...] LA Area A2C: 16.2 cm2 LA Major [place] A4C: 5.3 cm LA Major [place] A2C: 5.0 cm LA Volume Index: 23.9 ml/m2 LA Vol A4C: 43.7 ml LA Vol A2C: 43.3 ml LV SYSTOLIC FUNCTION BY 2D PLANIMETRY (MOD): Normal Ranges: EF-A4C View: 45.6 % (>=55%) EF-A2C View: 40.9 % EF-Biplane: 44.2 % AORTIC VALVE: Normal Ranges: LVOT Diameter: 1.80 cm (1.8-2.4cm) RIGHT VENTRICLE: RV Basal 3.49 cm RV Mid 2.45 cm RV Major 7.8 cm [id number] Jose Enrique Molina MD Electronically signed on 10/11/2023 at 9:43:19 AM Final XR chest 1 view Narrative: Interpreted By: Kahlil Fagan, STUDY: XR CHEST 1 VIEW; 10/11/2023 1:30 am INDICATION: Signs/Symptoms:Cough. COMPARISON: Chest radiograph 11/04/2012 ACCESSION NUMBER(S): [id number] ORDERING CLINICIAN: AURY ROUSE FINDINGS: SUPPORT DEVICES: [...] Kahlil Fagan 10/11/2023 1:33 AM Dictation workstation: [id number] Physical Exam Constitutional: Appearance: Normal appearance. HENT: [...] on sliding scale insulin. A1c 7.4 appreciate senior research associate input. Oxygen as tolerated, currently liters. PT, OT consult for generalized weakness. Vitamin D, zinc DVT prophylaxis on heparin. CODE STATUS full. Disposition in 24 to 48 hours. Total time spent 35 minutes. Vera Rivera MD * Consuelo Fischer RN - 10/11/2023 2:04 PM EST 10/11/23 6168 Discharge Planning Living Arrangements Spouse/significant other Support [...] with his at discharge to there [address]. He still drives and he ambulates with a cane. No further needs at this time. CT to follow. Consuelo Fischer BSN/RN-TCC documented in this [facility] Work Phone: [phone]) 967-982012-13-2023 Hospital course Narrative* Vera Mari MD - [...] Your Medications These medications were sent to [facility] [address] [address] metoprolol succinate XL 25 mg 24 hr tablet These medications were sent to [facility] [address] [place] [address] Hours: 8 AM to 5:30 Mon-Fri, 8 [...] up with home oxygen. Patientalso was sore senior research associate discharged his dexamethasone and antibiotics as cultures seems to be negative. Clinically stable. Patient also had elevated troponin secondary due to above seen by cardiology, Dr. De Dios, started on metoprolol, aspirin initially which which can be changed to 81 mg daily. Jaundice and Zetia also were started. Patient also has seen Dr. Albert, electroplating worker for acute on chronic kidney disease secondary [...] Department Center 02/24/2024 1:45 PM Madie Albert, NURSE CHEMICAL DEPENDENCY-DISABILITY SPECIALIST, [facility] [id number] Dr. Albert, nephrology in [address] De Dios, cardiology in 2 to 4 weeks. Total discharge time 40 minutes. Vera Rivera MD documented in this [facility] Work Phone: [phone] 717-806112-13-2023 Nurse Note* Moody Gorman RN - 10/13/2023 12:27 PM EST Pt is AAO. He is using his call light today when he wants to use the bathroom. He has had loose stools, but less frequent. [facility] Work Phone: [phone] 216-932612-12-2023 Nurse Note* Moody Gorman RN - 10/12/2023 5:25 PM EST Pt is alert to situation at this time and able to explain his diagnosis, but still impulsive when moving and unsteady. [facility] Work Phone: [phone] 413-601712-12-2023 Nurse Note* Moody Gorman RN - 10/12/2023 4:42 PM EST Pt continues to try and leave the bed and chair without his call light. When asked what he needs orwhere he wants to go, pt is unable to articulate his motivation except the general desire to move around. Repeated re-education is not working. [facility] Work Phone: [phone] 399-806912-12-2023 Nurse Note* Moody Gorman RN - 10/12/2023 3:45 PM EST Answered chair alarm. Pt is becoming increasingly confused and restless in general. He is aware of himself and other people, but is becoming impulsive in getting out of bed or his chair. Pt ambulatedto the bathroom, O2 increased to 5L for movement per RT. Pt assisted back to bed, bed alarm activated. [facility] Work Phone: [phone] Nurse Note* Moody Gorman RN - 10/12/2023 8:00 AM EST Pt is AAO, uses his call light appropriately. Pt currently on RA. Pt c/o weakness in his legs, but is able to sit up at the edge of the bed and walk with a walker to lean on for stability. [facility] Work Phone: [phone] 378-811012-12-2023 Plan of care note* Care Plan - [...] to address these barriers include repeated re-orientation. [facility] Work Phone: [phone] 553-426612-12-2023 Plan of care note* Care Plan - Jody Ball RN - 10/12/2023 5:59 AM EST The clinical goals for the shift include Blood sugar will return to normal limits by the end of theshift Over the shift, Pt tolerated BIPAP well. No signs of respiratory distress. [facility]12-11-2023 Consult note* Tyrone Zimmerman MD - [...] around 1.8,arthritis and smoking. Came to ED [facility] on 10/11/2023 complaining of shortness of [...] result verified on 10/11/2023 0209 on specimen/case [id number] called with component [facility] for procedure Troponin I, High Sensitivity, Initial [...] 13-18 <7.5 7-12 <8.0 0- 6 7.5-8.5 [employer]. Diabetes Care 33(S1), Nov 2009. 02/12/2023 08:57 AM 7.7 (A) % Final Comment: Diagnosis of Diabetes-Adults Non-Diabetic: < or = 5.6% Increased risk for developing diabetes: 5.7-6.4% Diagnostic of diabetes: > or = 6.5% . Monitoring of Diabetes Age (y) Therapeutic Goal (%) Adults: >18 <7.0 Pediatrics: 13-18 <7.5 7-12 <8.0 0- 6 7.5-8.5 [employer]. Diabetes Care 33(S1), Nov 2009. [...] Family history unknown: Yes Allergies: Prednisone and Soyolgx-iwb-fup reductase inhibitors Inpatient Medications: Scheduled medications Medication [...] around 1.8,arthritis and smoking. Came to ED [facility] on 10/11/2023 complaining of shortness of [...] to discharge. If no t possible, have [facility] as an outpatient. - Due [...] Tyrone Zimmerman MD [facility] Work Phone: [phone] Consult note* Tyrone Zimmerman MD - 10/11/2023 [...] around 1.8,arthritis and smoking. Came to ED [facility] on 10/11/2023 complaining of shortness of [...] result verified on 10/11/2023 0209 on specimen/case [id number] called with component [facility] for procedure Troponin I, High Sensitivity, Initial [...] 13-18 <7.5 7-12 <8.0 0- 6 7.5-8.5 [employer]. Diabetes Care 33(S1), Nov 2009. 02/12/2023 08:57 AM 7.7 (A) % Final Comment: Diagnosis of Diabetes-Adults Non-Diabetic: < or = 5.6% Increased risk for developing diabetes: 5.7-6.4% Diagnostic of diabetes: > or = 6.5% . Monitoring of Diabetes Age (y) Therapeutic Goal (%) Adults: >18 <7.0 Pediatrics: 13-18 <7.5 7-12 <8.0 0- 6 7.5-8.5 [employer]. Diabetes Care 33(S1), Nov 2009. [...] has a past medical history of Diabetes ([facility]). Past Surgical History: He has no past surgical history on file. Social History: He reports that he has been smoking cigarettes. He has never used smokeless tobacco. He reports that he does not drink alcohol and does not use drugs. Family History: Family History Family history unknown: Yes Allergies: Prednisone and Zuivnqc-jft-sqa reductase inhibitors Inpatient Medications: Scheduled medications Medication [...] around 1.8,arthritis and smoking. Came to ED [facility] on 10/11/2023 complaining of shortness of [...] to discharge. If no t possible, have [facility] as an outpatient. - Due [...] 12:13 PM ESTAssociated Order(s): IP CONSULT TO MANAGER INTERVENTIONAL Reason For Consult Acute respiratory failure History [...] has a past medical history of Diabetes ([facility]). Surgical History He has no past surgical history on file. Social History He reports that he has been smoking cigarettes. He has never used smokeless tobacco. He reports that he does not drink alcohol and does not use drugs. Family History Family History Family history unknown: Yes Allergies Prednisone and Olcqbee-kbl-znc reductase inhibitors Review of Systems A full [...] COVID-19 Ayanna Albert DO documented in this [facility] Work Phone: 1([phone]) 820-134012-11-2023 Consult note* Ayanna Albert DO - 10/11/2023 12:13 PM ESTAssociated Order(s): IP CONSULT TO MANAGER INTERVENTIONAL Reason For Consult Acute respiratory failure History [...] has a past medical history of Diabetes ([facility]). Surgical History He has no past surgical history on file. Social History He reports that he has been smoking cigarettes. He has never used smokeless tobacco. He reports that he does not drink alcohol and does not use drugs. Family History Family History Family history unknown: Yes Allergies Prednisone and Resoiex-vlx-wbk reductase inhibitors Review of Systems A full [...] procedures Principal Problem: COVID-19 Ayanna Albert DO [facility] Work Phone: [phone]) 679-839312-11-2023 Plan of care note* Care Plan - Vera Mari MD - 10/11/2023 11:49 AM EST Patient's reviewed. Currently on 5 L of oxygen by nasal cannula, sitting in bed. wants him to be full code with DNI. Continue with current management. [facility] Work Phone: [phone] Nurse Note* Geni Wall RN - 10/11/2023 10:00 AM EST , Alice ([phone]), called and requesting and update. Update provided. She is Enoc's POA and requests in the event of cardiac he receive CPR and life sustaining medications. She is unsure if she wants him intubated and wants more time to think about it. She reported she will be visiting Enoc today around 11am. [facility]12-11-2023 Nurse Note* Zoila Mota RN - [...] 112, RR 24. [facility] Work Phone: [phone] 666-193012-11-2023 History and physical note* Praful Pineda MD [...] IV labetalol and then [facility] for further investigation and management. Patient resting [...] History Past Medical History: Diagnosis Date Diabetes ([facility]) Pertinent medical history also documented in my [...] Family history unknown: Yes Allergies Prednisone and Zuqckww-wri-ibq reductase inhibitors Medications Prior to Admission Medication [...] Straw, Yellow Appearance, Urine Clear Clear Specific [place], Urine 1.014 1.005 - 1.035 pH, Urine [...] Signs/Symptoms:Cough. COMPARISON: Chest radiograph 11/04/2012 ACCESSION NUMBER(S): [id number] ORDERING CLINICIAN: AURY ROUSE FINDINGS: SUPPORT DEVICES: [...] Kahlil Fagan 10/11/2023 1:33 AM Dictation workstation: [id number] Assessment/Plan 77-year-old male, smoker, with a past [...] Praful Pineda MD [facility] Work Phone: [phone] 381-499512-11-2023 History and physical note* Praful Pineda MD [...] Family history unknown: Yes Allergies Prednisone and Ahrjqjn-yed-nks reductase inhibitors Medications Prior to Admission Medication [...] Straw, Yellow Appearance, Urine Clear Clear Specific [place], Urine 1.014 1.005 - 1.035 pH, Urine [...] Signs/Symptoms:Cough. COMPARISON: Chest radiograph 11/04/2012 ACCESSION NUMBER(S): [id number] ORDERING CLINICIAN: AURY ROUSE FINDINGS: SUPPORT DEVICES: [...] Kahlil Fagan 10/11/2023 1:33 AM Dictation workstation: [id number] Assessment/Plan 77-year-old male, smoker, with a past [...] corrected) Praful Pineda MD documented in this [facility] Work Phone: [phone]) 976-169012-11-2023 Emergency department Note* Aury Rouse, DO - [...] ED and establish an IV.Patient admits to 18-zxfr-hdro history of cigarette use and currently smokes 1 pack/day. Activity makes his symptoms worse rest helps to some extent. History provided by: EMS personnel and patient historic interpreter used: No Physical Exam Vitals and nursing note reviewed. Constitutional: General: He is awake. He is in acute distress. Appearance: Normal appearance. He is overweight. He is ill-appearing. HENT: Head: Normocephalic and atraumatic. Right Ear: External ear normal. Decreased hearing noted. Left Ear: External ear normal. Decreased hearing noted. Nose: Congestion and rhinorrhea present. Rhinorrhea is clear. Mouth/Throat: Lips: [place]. Mouth: Mucous membranes are moist. Pharynx: Oropharynx [...] specimens andhas been validated for use at [facility]. Negative results do not preclude COVID-19 [...] in ng/mL Fibrinogen Equivalent Units (FEU). Per professional golf tournament player's instructions for use, a value of less than 500 ng/mL (FEU) may help to exclude DVT or PE in outpatients when the assay is used with a clinical pretest probability assessment.([facility] must utilize and document eCalc [...] performed using a different testing methodology at [facility] than at other legacy [facility]. Direct result comparisons should only [...] performed using a different testing methodology at [facility] than at other [facility]. Direct result comparisons should only [...] is performed using different testing methodology at [facility] than at other [facility]. Direct result comparisons should only [...] Color, Urine Yellow Appearance, Urine Clear Specific [place], Urine 1.014 pH, Urine 5.0 Protein, Urine [...] and has been validated for use at [facility]. Negative results do not preclude Influenza A/B infections, and should not be used as the sole basis for diagnosis, treatment, or other management decisions. IfInfluenza A/B and RSV PCR results are negative, testing for Parainfluenza virus, Adenovirus and Metapneumovirus is routinely performed for [facility] pediatric oncology and intensive care inpatients, and isavailable on other patients by placing an add-on request. RSV PCR - Normal RSV PCR Not Detected Narrative: This assay is an FDA-cleared, in vitro diagnostic nucleic acid amplification test for the detectionof RSV from nasopharyngeal specimens, and has been validated for use at [facility]. Negative results do not preclude RSV infections, and should not be used as the sole basis for diagnosis, treatment, or other management decisions. If Influenza A/B and RSV PCR results are negative, testing for Parainfluenza virus, Adenovirus and Metapneumovirus is routinely performed for pediatric oncology and intensive care inpatients at [facility], and is available on [...] Abnormality Status --------- ------ Urinalysis with Reflex M...[[id number]] Abnormal Final result Extra Urine Orosco Tube[[id number]] Final result Please view results for these tests on the individual orders. TROPONIN SERIES- (INITIAL, 1 HR) Narrative: The following orders were created for panel order Troponin I Series, High Sensitivity (0, 1 HR). Procedure Abnormality Status --------- ------ Troponin I, High Sensiti...[[id number]] Abnormal Final result Troponin, High Sensitivi...[[id number]] Abnormal Final result Please view results for [...] Kahlil Fagan 10/11/2023 1:33 AM Dictation workstation: [id number] Critical Care Performed by: Aury Rouse DO [...] Q waves inthe anterior precordial leads. The NH interval is 148 ms. QRS durations 82 [...] did help a little. documented in this [facility] Work Phone: 1([phone]) 713-169312-11-2023 Emergency department Triage note* VANDANA Cosby - 10/11/2023 1:08 AM EST Pt brought in via EMS for fevers and chills. Pt reports being ill for the last 2-3 days. Pt states that he has been having fevers, chills, weakness, fatigue, headaches, body aches with some SOB. Pt was given a breathing treatment in route and states that it did help a little. [facility] Work Phone: [phone] Physician Emergency department Note* Aury Rouse DO [...] ED and establish an IV.Patient admits to 96-wazz-nodq history of cigarette use and currently smokes 1 pack/day. Activity makes his symptoms worse rest helps to some extent. History provided by: EMS personnel and patient historic interpreter used: No Physical Exam Vitals and nursing note reviewed. Constitutional: General: He is awake. He is in acute distress. Appearance: Normal appearance. He is overweight. He is ill-appearing. HENT: Head: Normocephalic and atraumatic. Right Ear: External ear normal. Decreased hearing noted. Left Ear: External ear normal. Decreased hearing noted. Nose: Congestion and rhinorrhea present. Rhinorrhea is clear. Mouth/Throat: Lips: [place]. Mouth: Mucous membranes are moist. Pharynx: Oropharynx [...] specimens andhas been validated for use at [facility]. Negative results do not preclude COVID-19 [...] in ng/mL Fibrinogen Equivalent Units (FEU). Per professional golf tournament player's instructions for use, a value of less than 500 ng/mL (FEU) may help to exclude DVT or PE in outpatients when the assay is used with a clinical pretest probability assessment.([facility] must utilize and document eCalc [...] performed using a different testing methodology at [facility] than at other [facility]. Direct result comparisons should only [...] performed using a different testing methodology at [facility] than at other [facility]. Direct result comparisons should only [...] is performed using different testing methodology at [facility] than at other [facility]. Direct result comparisons should only [...] Color, Urine Yellow Appearance, Urine Clear Specific [place], Urine 1.014 pH, Urine 5.0 Protein, Urine [...] and has been validated for use at [facility]. Negative results do not preclude Influenza A/B infections, and should not be used as the sole basis for diagnosis, treatment, or other management decisions. IfInfluenza A/B and RSV PCR results are negative, testing for Parainfluenza virus, Adenovirus and Metapneumovirus is routinely performed for [facility] pediatric oncology and intensive care inpatients, and isavailable on other patients by placing an add-on request. RSV PCR - Normal RSV PCR Not Detected Narrative: This assay is an FDA-cleared, in vitro diagnostic nucleic acid amplification test for the detectionof RSV from nasopharyngeal specimens, and has been validated for use at [facility]. Negative results do not preclude RSV infections, and should not be used as the sole basis for diagnosis, treatment, or other management decisions. If Influenza A/B and RSV PCR results are negative, testing for Parainfluenza virus, Adenovirus and Metapneumovirus is routinely performed for pediatric oncology and intensive care inpatients at [facility], and is available on [...] Abnormality Status --------- ------ Urinalysis with Reflex M...[[id number]] Abnormal Final result Extra Urine Orosco Tube[[id number]] Final result Please view results for these tests on the individual orders. TROPONIN SERIES- (INITIAL, 1 HR) Narrative: The following orders were created for panel order Troponin I Series, High Sensitivity (0, 1 HR). Procedure Abnormality Status --------- ------ Troponin I, High Sensiti...[[id number]] Abnormal Final result Troponin, High Sensitivi...[[id number]] Abnormal Final result Please view results for [...] Kahlil Fagan 10/11/2023 1:33 AM Dictation workstation: [id number] Critical Care Performed by: Aury Rouse DO [...] Q waves inthe anterior precordial leads. The NH interval is 148 ms. QRS durations 82 ms. QTc is 455 ms axis is 39 degrees. Diagnoses as of 10/12/23514 COVID-19 Acute respiratory failure with hypoxia (CMS/HCC) Acute congestive heart failure, unspecified heart failure type (CMS/HCC) Pneumonia of both lungs due to infectious organism, unspecified part of lung Aury Rouse DO 10/12/23514 [facility] Work Phone: 1(291) 219-750012-08-2023 History of Present illness Narrative* Mary Vargas [...] being taken. Patient does not see a mid level net developer. Eye exam is current. Currently taking: [...] bedside for hypoglycemia at night. 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 Had bilat cataract extraction Dr. Lopez. Sees Dr. Browne in [place] every year routinely.Has blurred vision with low [...] Call if BG consistently <70 or >250. [phone] Continue to check blood sugar 3 times [...] MD 10/10/23 8:04 PM documented in this [id number] Evaluation + Plan note* Assessment & Plan Note - Ayanna Albert, - 08/25/2023 2:39 PM EDTAssociated Problem(s): CKD (chronic kidney disease) Doing well with DM HTN well controlled Sees Endocrinology. Has Type 1 DM On Statin Not on nephrotoxins [facility] Work Phone: 1(295) 685-499810-25-2023 Miscellaneous Notes* Assessment & Plan Note - Ayanna Albert DO - 08/25/2023 2:39 PM EDTAssociated Problem(s): CKD (chronic kidney disease) Doing well with DM HTN well controlled Sees Endocrinology. Has Type 1 DM On Statin Not on nephrotoxins [facility] Work Phone: 1(135) 122-964710-25-2023 History of Present illness Narrative* Ayanna Albert [...] Microalbuminuria Dyslipidemia Nicotine Abuse documented in this [facility] Work Phone: 1(479) 651-908604-21-2023 History of Present illness Narrative* Paty Ortega [...] being taken. Patient does not see a mid level net developer. Eye exam is current. Currently taking: [...] at HS. PLAN: See below. 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 Had bilat cataract extraction Dr. Lopez. Sees Dr. Browne in [place] every year routinely. Nephropathy: Positive Creat: 1.09; [...] Call if BG consistently <70 or >250. [phone] Continue to check blood sugar 4 times [...] CNP 02/19/23 10:25 AM documented in this [id number] History of Present illness Narrative* Paty Ortega [...] being taken. Patient does not see a mid level net developer. Eye exam is current. Currently taking: [...] Reduce lunch and HS insulin. 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 Had bilat cataract extraction Dr. Lopez. Sees Dr. Browne in [place] every year routinely. Nephropathy: Positive Creat: 1.09; [...] Call if BG consistently <70 or >250. [phone] Continue to check blood sugar 4 times [...] CNP 10/19/22 10:25 AM documented in this [id number] History of Present illness Narrative* Paty Ortega [...] being taken. Patient does not see a mid level net developer. Eye exam is current. Currently taking: [...] Reduce lunch and HS insulin. 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 Had bilat cataract extraction Dr. Lopez. Sees Dr. Browne in [place] every year routinely. Nephropathy: Positive Creat: 1.09; [...] Call if BG consistently <70 or >250. [phone] Continue to check blood sugar 4 times [...] MD 06/19/22 11:20 PM documented in this [id number] History of Present illness Narrative* Mary Vargas [...] being taken. Patient does not see a mid level net developer. Eye exam is current. Currently taking: [...] Reduce lunch and HS insulin. 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 Had bilat cataract extraction Dr. Lopez. Sees Dr. Browne in [place] every year routinely. Nephropathy: Positive Creat: 1.09; [...] to check stenosis. To be done in [place] office. 2. Education: Reviewed ABCs of diabetes [...] Call if BG consistently <70 or >250. [phone] Continue to check blood sugar 4 times [...] MD 02/13/22 11:20 PM documented in this [id number] History of Present illness Narrative* Paty Ortega DISABILITY SPECIALIST - 10/13/2021 2:10 PM EST Images from [...] being taken. Patient does not see a mid level net developer. Eye exam is current. Currently taking: [...] HS. PLAN: See below. CPM Retinopathy: Negative TDP DISPLAYS ANALYST. Exam within last 12 months: yes Date: 10/16/20. Had bilat cataract extraction Dr. Lopez. Sees Dr. Browne in [place] every year routinely. Nephropathy: Negative Creat: 1.08; [...] Call if BG consistently <70 or >250. [phone] Continue to check blood sugar 4 times [...] CNP 10/13/21 2:55 PM documented in this [id number] History of Present illness Narrative* Paty Ortega [...] being taken. Patient does not see a mid level net developer. Eye exam is current. Currently taking: [...] HS. PLAN: See below. CPM Retinopathy: Negative TDP DISPLAYS ANALYST. Exam within last 12 months: yes Date: 10/16/20. Had bilat cataract extraction Dr. Lopez. Sees Dr. Browne in [place] every year routinely. Nephropathy: Negative Creat: 1.08; [...] Call if BG consistently <70 or >250. [phone] Continue to check blood sugar 4 times [...] CNP 06/20/21 2:55 PM documented in this [id number] History of Present illness Narrative* Mary Vargas [...] being taken. Patient does not see a mid level net developer. Eye exam is current. Currently taking: [...] HS. PLAN: See below. CPM Retinopathy: Negative TDP DISPLAYS ANALYST. Exam within last 12 months: yes Date: 10/16/20. Had bilat cataract extraction Dr. Lopez. Sees Dr. Browne in [place] every year routinely. Nephropathy: Negative Creat: 1.08; [...] Call if BG consistently <70 or >250. [phone] Continue to check blood sugar 4 times [...] in this encounterOhioHealthDischarge summary Author John Brandon [facility] Note Date/Time April 03, 2025 4:11a m [facility] Medical Records Department [address] [place] [address] Emergency Department Summary 04/03/25 MR#: [id number] Acct: [id number] Name: ENOC ARMANDO Rep #:[id number] : 1945 79 From: John Ramirez PCP: Dr. Ryley Jeter MD Status:REG ER Location: ED HPI History of Present Illness Chief Complaint: Shortness of Breath [facility] Medical History Pneumonia COVID Wears glasses [...] AdvReac Other Verified 04/03/25 00:16 (Glucocorticoids) (steroids) Sipjcdq-Pvt-Wil Reductase AdvReac Other Verified 04/03/25 00:16 Inhibitor [...] Consults: internal medicine only sees Dr. Hwang) [facility] Narrative: The patient was initially [...] to ICU This note was generated with [employer] (formerly [employer]) dictation software. It may contain incorrectwords, spelling, [...] 76.4 H Lymph % (Auto) 13.5 L [place] % (Auto) 7.0 Eos % (Auto) 1.9 [...] possibly multifocal congestion and/or pneumonia. Reading Location: [place] [address] Discharge Plan Triage Chief Complaint: Shortness of [...] MD [Primary Care Provider] - Print Language: Cook Islander What to do if you have Problems For any increased pain, shortness of breath, bleeding, nausea or vomiting, chestpain, or any unexpected problems, contact your Primary Care Provider. Call [facility] ([phone]) or report to the closest Emergency Room. Call 911 if necessary. 04/03/25 0411 <Electronically signed by John Brandon DO> Cosigner Signature (if applicable): CC: Dr. Ryley Jeter MD ~ Signed [facility] Work Phone: Discharge summary Author Grace [facility] Note Date/Time April 10, 2025 5:09 pm [facility] Medical Records Department [address] [place] [address] Instructions for Home/Discharge Instructions 04/10/25 1527 MR#: [id number] Acct: [id number] Name: ENOC ARMANDO Rep #:[id number] : 1945 79 From: Grace Arnold MD [...] MD; Dr. 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)- Primary Type 1 diabetes mellitus with diabetic neuropathy (HCC) Essential hypertension Unspecified essential hypertension Pure hypercholesterolemia [facility] Diagnosis COVID-19- Primary COVID-19 Acute respiratory failure with hypoxia (CMS/HCC) Acute congestive heart failure, unspecified heart failure type (CMS/HCC) Pneumonia of both lungs due to infectious organism, unspecified part of lung Abnormal electrocardiogram (ECG) (EKG) Acute on chronic systolic (congestive) heart failure (CMS/HCC) documented in this encounter [facility] Work Phone: Evaluation note* Diagnosis 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- Primary Dyslipidemia Other and unspecified hyperlipidemia Congestive heart failure, unspecified HF chronicity, unspecified heart failure type (HCC) documented in this encounter [facility] noteNo assessment information availableWParkview [facility] Work Phone: Evaluation note* Diagnosis NSTEMI (non-ST elevated myocardial infarction) ([facility])- Primary Acute myocardial infarction, subendocardial infarction, episode of care unspecified [place] (acute kidney injury) ([facility]/HCC) Acute combined systolic and diastolic congestive heart failure ([facility]) Type 1 diabetes mellitus with other specified complication ([facility]) documented in this encounter [facility] Work Phone: Evaluation note* Diagnosis NSTEMI [...] diabetic neuropathy (Multi) documented in this encounter [facility] Work Phone: Evaluation note* Diagnosis Type [...] with diabetic neuropathy documented in this encounter [facility] Work Phone: Evaluation note* Diagnosis Type [...] [facility]* Diagnosis Coronary 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[place] coronary artery of [place] heart without angina pectoris- Primary documented in [...] of cerebral infarction Coronary 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[place] coronary artery of [place] heart without angina pectoris- Primary Claudication in [...] with diabetic neuropathy documented in this encounter [facility] Work Phone: Evaluation note* Diagnosis Bilateral carotid artery stenosis Occlusion and stenosis of carotid artery without mention of cerebral infarction Coronary 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[place] coronary artery of [place] heart without angina pectoris- Primary NSTEMI (non-ST [...] Admit Date Acute hypoxic respiratory failure ac [place] April 03, 2025 4:16am [facility] Work Phone: Evaluation note* Diagnosis Bilateral carotid artery stenosis Occlusion and stenosis of carotid artery without mention of cerebral infarction Type 1 diabetes mellitus with diabetic neuropathy (HCC) documented in this encounter [facility] and physical note Author Dyana Hwang [facility] Note Date/Time April 03, 2025 4:42a m [facility] Medical Records Department [address] [place] [address] H&P Exam - Hospitalist 04/03/25 0402 MR#: [id number] Acct: [id number] Name: ENOC ARMANDO Rep #:[id number] : 1945 79 From: Dyana Hwang MD PCP: Dr. Ryley Jeter MD Status:ADM IN Location: ICU ICU04-1 [facility] General Date of Admission: 04/03/25 Date of Service: 04/03/25 Chief Complaint: Dyspnea. HPI Narrative The patient is an 79 y/o M w/ PMHx: CKD stage III unclear subtype per GFR trending, Chronic macrocytic anemia, HTN, HLD, Diabetes mellitus type II, BPH with obstructive pathology, Tobacco use who presents to the [facility] ED on 04/03/2025 with history of worsening [...] x 1 and sublingual nitroglycerin x 1. [facility] Medical History (Updated 04/03/25 @ 04:40 by [...] AdvReac Other Verified 04/03/25 00:16 (Glucocorticoids) (steroids) Fnzbcay-XKX-KdB Reductase AdvReac Other Verified 04/03/25 00:16 Inhibitor (Ejrkshg-Tnt-Joz Reductase Inhibitor) Family History (Updated 04/03/25 @ [...] 76.4 H, Lymph % (Auto) 13.5 L, [place] % (Auto) 7.0, Eos % (Auto) 1.9, [...] possibly multifocal congestion and/or pneumonia. Reading Location: [place] [address] Chest CTA 04/03/25 02:34 IMPRESSION: Mild bilateral pleural effusions. Passive atelectatic airspace disease/airspace consolidations of the lower lobes. Bilateral chronic perihilar interstitial pulmonary thickening with associated mild multifocal ground-glass densities, possibly superimposed pneumonia. Mild diffuse spondylosis. No CT evidence of pulmonary embolus or aortic dissection. Reading Location: [place] [address] Assessment & Plan Assessment/Plan (1) Acute hypoxic respiratory failure: PLAN: Plan The patient is an 79 y/o M w/ PMHx: CKD stage III unclear subtype per GFR trending, Chronic macrocytic anemia, HTN, HLD, Diabetes mellitus type II, BPH with obstructive pathology, Tobacco use who presents to the [facility] ED on 04/03/2025 with history of worsening [...] any pulmonary embolus or aortic dissection, initial [id number] with repeat delta troponin 76. Will maintain [...] 16 minutes. Charges/Coding Visit Charges Inpatient E&M: 32088 Init Hosp L3 Procedures Hospitalists Procedures: 25892 Advncd Care Plan 30 Min 04/03/25 0442 <Electronically signed by Dyana Hwang MD> Cosigner Signature (if applicable): CC: Dr. Dyana Hwang MD; Dr. Ryley Jeter MD~ Signed [facility] Work Phone: History of Present illness Narrative* At least a 5 yr HX of LBP (previous HX of sciatica). No recent film studies have been done. He willbe a low fall risk. The patient will continue his therapy at [place]. Physical findings include limited trunk ROM with discomfort. Continue with trunk mech trng, STW (needling), and core stability/ROM exercises. * Clinical Presentation: Stable and/or uncomplicated characteristics. * Level of Complexity: low * Problem List: activity limitations, ADLs/IADLs/self care skills, decreased functional level, decreased knowledge of HEP, decreased knowledge of precautions, fall risk, gait/locomotion, pain, range ofmotion/joint mobility and strength. [facility] Work Phone: History of Present illness NarrativePatient identified by name and date of . Patient demonstrated good understanding of exercises and stretching with cues to complete after instruction. He presented with palpable tension in gluts and QL and paraspinals that responded well to STW. [facility] Work Phone: History of Present illness [...] with relief noted d/t tightness in LB. [facility] [place] Work Phone: History of Present illness Narrative* Tightness along the ITB and QL continues. * Palpable spams in both regions with with STW. * Fair trunk flexibility with SKTC. [facility] [employer] Work Phone: History of Present illness NarrativePatient identified by name and date of . Patient was able to progress with several exercises this date with addition of teri disc and focus on maintain upright posture. He presented with increased muscle tension in IT band and QL this date.[facility] [employer] Work Phone: History of Present illness NarrativePatient identified by name and date of . Added IT band stretch this date and instructed for HEP due to palpable tension. Reviewed importance of HEP even if he feels sore to increased with ROM and decrease with muscle tension, he verbalized good understanding. Patient continues to present with palpable muscle tension/restrictions in his piriforms.[facility] [employer] Work Phone: History of Present illness NarrativePatient identified by name and date of . Added IT band stretch this date and instructed for HEP due to palpable tension. Reviewed importance of HEP even if he feels sore to increased with ROM and decrease with muscle tension, he verbalized good understanding. Patient continues to present with palpable muscle tension/restrictions in his piriforms.[facility] [place] Work Phone: History of Present illness NarrativePatient [...] inclusion of trigger point dry needling.[facility] Work Phone: History of Present illness NarrativeSTW [...] a TENS unit for the patient. [facility] Work Phone: reason for referral (narrative)* Consultation (Routine) - Authorized Specialty Diagnoses / Procedures Referred By Jimy stacy Referred To Contact Nephrology Diagnoses Stage 3b chronic kidney disease (CMS/HCC) Procedures Follow Up In Nephrology Ayanna Albert DO [address] [place] [address] Referral ID Status Reason Start Date Expiration Date V isits Requested Visits Authorized [id number] Authorized 08/25/2023 08/24/2024 1 1 [facility] Work Phone: Reason for referral (narrative)* Consultation (Routine) - Authorized Specialty Diagnoses / Procedures Referred By Jimy stacy Referred To Contact Nephrology Diagnoses Stage 3b chronic kidney disease ([facility]) Procedures Follow Up In Nephrology Madie Albert APRN-CNP, DNP [address] [place] [address] Referral ID Status Reason Start Date Expiration Date V isits Requested Visits Authorized [id number] Authorized 02/24/2024 02/23/2025 1 1 [facility] Work Phone: Reason for referral (narrative)No reason for referral information availableWParkview Health [facility] Work Phone: Reason for visit Narrative* Initial Evaluation . lumbar DDD. * Referred by: Yuki [facility] Work Phone: [facility] N[facility]* Auth/Cert Specialty Diagnoses / Procedures Referred By Contac t Referred To Contact Diagnoses NSTEMI (non-ST elevated myocardial infarction) (HCC) NSTEMI Referral ID Status Reason Start Date Expiration Date Visits Re quested Visits Authorized [id number] 1 1 [facility] for visit Narrative* Auth/Cert (Routine) Specialty Diagnoses / Procedures Referred By Contac t Referred To Contact Diagnoses Cardiovascular stress test abnormal Fatigue, unspecified type SOB (shortness of breath) Cardiovascular stress test abnormal [R94.39] Fatigue, unspecified type [R53.83] SOB (shortness of breath) [R06.02] Procedures Left Heart Cath Referral ID Status Reason Start Date Expiration Date Visits Re quested Visits Authorized [id number] 1 1 [facility] Instructions * Patient Instructions - Alexandra [...] Documents on File Type Date Recorded Patient Buckle Stapler Expl anation Advance Directives and Living Will Documents on File Type Date Recorded Patient Buckle Stapler Expl anation Advance Directives and Livin g Will 10/18/2020 1:33 PM Documents on File Type Date Recorded Patient Buckle Stapler Expl anation Advance Directives and Livin g Will 10/18/2020 1:33 PM Documents on File Type Date Recorded Patient Buckle Stapler Expl anation Advance Directives and Livin g Will 02/21/2021 3:38 PM Documents on File Type Date Recorded Patient Buckle Stapler Expl anation Advance Directives and Livin g Will 02/21/2021 3:38 PM Latest Code Status on File Code Status Date Activated Date Inactivated Comments Full Code 10/11/2023 5:02 AM Question Answer Comments Plan of Care: Code Status Discussion Completed Decision Maker: Patient Advance Directive Response Recorded Date/ Time Living Will Yes August 05 7:59am Power of Solution Spec Yes August 05 7:59am Latest Code Status [...] Documents on File Type Date Recorded Patient Buckle Stapler Expl anation Advance Directives and Livin g [...] Documents on File Type Date Recorded Patient Buckle Stapler Expl anation Advance Directives and Livin g [...] Do you have a Healthcare Power of Solution Spec? No April 03, 2025 5:17am History of Present Illness * Keeley Patton CNP - 11/11/2018 8:11 AM EST Formatting of this note may be different from the original. Patient ID: Enoc Armando is a 72 y.o. male Subjective: HPI: Enoc Armando presents for follow-up of Type 1 diabetes The initial diagnosis of diabetes was [id number] years ago in 1994. Disease course has [...] being taken. Patient does not see a mid level net developer. Eye exam is current. Patient with [...] blood sugar though. PLAN: CPM. 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 Exam within last 12 months: yes Date: 08/2018 . Had bilat cataract extraction Dr. Lopez. Sees Dr. Browne in [place] every year routinely. Nephropathy: Negative Creat: 1.2, [...] Call if BG consistently <70 or >250. [phone] Continue to check blood sugar 4 times [...] being taken. He does not see a mid level net developer.Eye exam is current (Jun 16). The [...] between apt for further adjustments Retinopathy: Negative TDP DISPLAYS ANALYST. Exam within last 12 months: yes Date: [...] Last CBC-WBC8.2/ Hgb- 14.6/ Hct- 44.1/ Plt [id number] Problem List Items Addressed This Visit Endocrine [...] diabetes The initial diagnosis of diabetes was [id number] years ago in 1994. Disease course has [...] being taken. Patient does not see a mid level net developer. Eye exam is current. Currently taking: [...] the morning. PLAN: See below Retinopathy: Negative TDP DISPLAYS ANALYST. Exam within last 12 months: yes Date: 08/2018- patient due next month for updated exam Had bilat cataract extraction Dr. Lopez. Sees Dr. Browne in [place] every year routinely. Nephropathy: Negative Creat: 1.0, [...] to bedtime appear to be typically less [id number] and usually less than 180. He was [...] Call if BG consistently <70 or >250. [phone] Continue to check blood sugar 4 times [...] diabetes The initial diagnosis of diabetes was [id number] years ago in 1994. Disease course has [...] being taken. Patient does not see a mid level net developer. Eye exam is current. Currently taking: [...] at HS. PLAN: See below Retinopathy: Negative TDP DISPLAYS ANALYST. Exam within last 12 months: yes Date: 08/2018- patient due next month for updated exam Had bilat cataract extraction Dr. Lopez. Sees Dr. Browne in [place] every year routinely. Nephropathy: Negative Creat: 1.08; [...] Call if BG consistently <70 or >250. [phone] Continue to check blood sugar 4 times [...] being taken. Patient does not see a mid level net developer. Eye exam is current. Currently taking: No oral hypoglycemic medications Humalog insulin: 10 units at breakfast; 10 units at lunch; 14-15 units at supper Lantus insulin: 18 units at bedtime Outpatient Medications Marked as Taking for the 8/18/20 encounter (Office Visit) with Paty Ortega CNP: [...] <150 atHS. PLAN: See below Retinopathy: Negative TDP DISPLAYS ANALYST. Exam within last 12 months: yes Date: 09/2019- patient due September 2020for updated exam Had bilat cataract extraction Dr. Lopez. Sees Dr. Browne in [place] every yearroutinely. Nephropathy: Negative Creat: 1.01; eGFR: [...] Call if BG consistently <70 or >250. [phone] Continue to check blood sugar 4 times [...] being taken. Patient does not see a mid level net developer. Eye exam is current. Currently taking: No oral hypoglycemic medications Humalog insulin: 10 units at breakfast; 10 units at lunch; 14-15 units at supper Lantus insulin: 18 units at bedtime Outpatient Medications Marked as Taking for the 10/18/20 encounter (Office Visit) with Paty Ortega, DISABILITY SPECIALIST: amLODIPine (NORVASC) 10 MG tablet, Take 10 [...] hypercholesterolemia Type 1 diabetes, under good control Neoc Ariela Armando presents for follow-up of Type [...] <150 atHS. PLAN: See below Retinopathy: Negative TDP DISPLAYS ANALYST. Exam within last 12 months: yes Date: 10/16/20. Had bilat cataract extraction Dr. Lopez. Sees Dr. Browne in [place] every year routinely. Nephropathy: Negative Creat: 1.01; [...] Call if BG consistently <70 or >250. [phone] Continue to check blood sugar 4 times [...] diabetes The initial diagnosis of diabetes was [id number] years ago in 1994. Disease course has [...] being taken. Patient does not see a mid level net developer. Eye exam is current. Currently taking: [...] same dose of 18 unitsnightly. 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 Exam within last 12 months: yes Date: 08/2018 . Had bilat cataract extraction Dr. Lopez. Sees Dr. Browne in [place] every year routinely. Nephropathy: Negative Creat: 1.0, [...] Call if BG consistently <70 or >250. [phone] Continue to check blood sugar 4 times [...] Procedures Ultrasound doppler carotid Mary Vargas MD [address] [place] [address] Status Reason Specialty Diagnoses / Procedures Referre d By Contact Referred To Contact Closed Cardiology Diagnoses Bilateral carotid artery stenosis Procedures Ultrasound doppler carotid Mary Vargas MD [address] [place] [address] [facility] Sigrid Barrera [address] [facility] [place] [place] [address] Specialty Diagnoses / Procedures Referred By Contac t Referred To Contact Urology Diagnoses Elevated PSA Paty Ortega CNP [address] [place] [address] Alvaro Gutierrez MD [address] [place] [phone] Referral ID Status Reason Start Date Expiration Date Visits Requested Visits Authorized [id number] Pending Review Specialty Services Required/Pat ient's Best Interest 06/19/2022 06/19/2023 1 1 Specialty Diagnoses / Procedures Referred By Contac t Referred To Contact Cardiology Diagnoses Bilateral carotid artery stenosis Procedures Ultrasound doppler carotid Paty Ortega, DISABILITY SPECIALIST [address] [place] [address] Referral ID Status Reason Start Date Expiration Date V isits Requested Visits Authorized [id number] Authorized 10/19/2022 10/19/2023 1 1 Specialty Diagnoses / Procedures Referred By Contac t Referred To Contact Radiology Diagnoses Congestive heart failure, unspecified HF chronicity, unspecified heart failure type (HCC) 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 Procedures NM Myocardial Perfusion Multiple SPECT Day, Woo Larsen MD [address] [place] [address] Referral ID Status Reason Start Date Expiration Date V isits Requested Visits Authorized [id number] New Request 10/21/2023 10/20/2024 4 4 Chief [...] section and content) DATE CREATED AUTHOR 04/21/2018 [facility] DATE CREATED AUTHOR AUTHOR'S ORGANIZ ATION 07/05/2019 [facility] DATE CREATED AUTHOR AUTHOR'S ORGANIZ ATION 08/04/2023 [employer] DATE CREATED AUTHOR AUTHOR'S ORGANIZ ATION 08/06/2023 [facility] DATE CREATED AUTHOR AUTHOR'S ORGANIZ ATION 10/13/2023 [facility] DATE CREATED AUTHOR AUTHOR'S ORGANIZ ATION 11/12/2024 [facility] DATE CREATED AUTHOR AUTHOR'S ORGANIZ ATION 02/27/2025 [facility] DATE CREATED AUTHOR AUTHOR'S ORGANIZ ATION 03/13/2025 [facility] DATE CREATED AUTHOR AUTHOR'S ORGANIZ ATION 03/30/2025 [facility] DATE CREATED AUTHOR AUTHOR'S ORGANIZ ATION 04/14/2025 [facility] DATE CREATED AUTHOR AUTHOR'S ORGANIZ ATION 04/15/2025 [facility] DATE CREATED AUTHOR AUTHOR'S ORGANIZ ATION 04/17/2025 [facility] Reason for Visit (unrecogniz ed section and content) Reason Comments Diabetes Mellitus Reason Onset Date Comments Medication Refill 02/18/2021 Reason Comments Diabetes Mellitus Status Reason Specialty Diagnoses / Procedures Referre d By Contact Referred To Contact Closed Cardiology Diagnoses Bilateral carotid artery stenosis Procedures Ultrasound doppler carotid Mary Vargas MD [address] [place] [address] [place] [address] Reason Onset Date Comments Medication Refill 10/08/2021 [...] coded services entered Praful Maloney MD [address] [place] [address] [facility] [address] [place] [address] Referral ID Status Reason Start Date Expiration Date Visits Re quested Visits Authorized [id number] 1 1 Reason Comments Initial Visit (Intake) SOBOE Specialty Diagnoses / Procedures Referred By Contac t Referred To Contact Cardiology Diagnoses Congestive heart failure, unspecified HF chronicity, unspecified heart failure type ([facility]) Mary Vargas MD [address] [place] [address] [place] [address] Referral ID Status Reason Start Date Expiration Date Visits Re quested Visits Authorized [id number] Closed 10/19/2023 10/18/2024 1 1 Reason Comments Respiratory Distress Pt comes in for dif ficulty breathing. Pt states that he was dx with a viral lung infection 1 wk ago and placed on a steroid. Pt had covid 1 month ago and was admitted for 1 wk at this facility. 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 EMS reports an O2 level in [...] Bilateral carotid artery stenosis Sandi Phan PA-C [address] [place] [address] Phone: tel: fax: [address] [address] Phone: tel: Referral ID Status Reason Start Date Expiration Date V isits Requested Visits Authorized [id number] Pending Review 11/07/2024 11/07/2025 1 1 Reason [...] Ayanna Albert DO [address] [place] [address] Phone: tel: fax: Referral ID Status Reason Start Date Expiration Date V isits Requested Visits Authorized [id number] Authorized 08/29/2024 08/29/2025 1 1 Reason Comments Shortness of Breath Abnormal Lab BNP Reason Comments Diabetes Mellitus Diabetic Eye Exam du e on 10/14/2021 Reason Onset Date Comments Results 03/27/2025 Lab Reason Onset Date Comments Medication Refill 04/16/2025 Care Teams (unrecognized sec tion and content) Laborer Vineyard Relationship Specialty Start Date End Date Nancy Mirza MD PCP - General Family Medicine 01/09/16 Laborer Vineyard Relationship Specialty Start Date End Date Nancy Mirza MD PCP - General Family Medicine 01/09/16 Laborer Vineyard Relationship Specialty Start Date End Date Nancy Mirza MD PCP - General Family Medicine 01/09/16 Laborer Vineyard Relationship Specialty Start Date End Date Nancy Mirza MD PCP - General Family Medicine 01/09/16 Laborer Vineyard Relationship Specialty Start Date End Date Nancy Mirza MD PCP - General Family Medicine 01/09/16 Laborer Vineyard Relationship Specialty Start Date End Date Nancy Mirza MD PCP - General Family Medicine 01/09/16 Laborer Vineyard Relationship Specialty Start Date End Date Nancy Mirza MD PCP - General Family Medicine 01/09/16 Laborer Vineyard Relationship Specialty Start Date End Date Nancy Mirza MD [address] [place] [address] PCP - General Family Medicine 01/09/16 Laborer Vineyard Relationship Specialty Start Date End Date Nancy Mirza MD [address] [place] [address] PCP - General Family Medicine 01/09/16 Laborer Vineyard Relationship Specialty Start Date End Date Nancy Mirza MD [address] [place] [address] PCP - General 11/01/18 Laborer Vineyard Relationship Specialty Start Date End Date Ryley Jeter MD [address] [place] [address] PCP - General Family Medicine 10/08/23 Laborer Vineyard Relationship Specialty Start Date End Date Nancy Mirza MD [address] [place] [address] PCP - General 11/01/18 Laborer Vineyard Relationship Specialty Start Date End Date Ryley Jeter MD [address] [place], [place] [id number] PCP - General Family Medicine 10/08/23 Laborer Vineyard Relationship Specialty Start Date End Date Ryley Jeter MD [address] [place], [place] [id number] PCP - General Family Medicine 10/08/23 Team Status: Active Member Role Status Lizzette Jeter MD Primary Care Provider Active Team Status: Inactive Member Role Status Lizzette Jeter MD Primary Care Provider Active Jana Ferguson LEAD ESTHETICIAN, LEAD ESTHETICIAN-C Attending Provider Active Team Status: Inactive Member Role Status Lizzette Jeter MD Primary Care Provide r, Attending Provider, Referring Provider Active Laborer Vineyard Relationship Specialty Start Date End Date Ayanna Albert DO [address] [place], [place] [address] [address] [place] [address] PCP - [employer] Medicare Advantage PCP 11/01/23 Generic Provider, No Assigned PcpMD [address] [place] [address] PCP - General Internal Medicine 11/26/23 Laborer Vineyard Relationship Specialty Start Date End Date Ayanna Albert DO [address] [place], [place] [id number] PCP - [employer] Medicare Advantage PCP 11/01/23 Gerri Amos MD [address] [place] [address] PCP - General Internal Medicine 11/26/23 Laborer Vineyard Relationship Specialty Start Date End Date Ryley Jeter MD [address] [place] [address] PCP - General Family Medicine 10/08/23 Laborer Vineyard Relationship Specialty Start Date End Date Nancy Mirza MD [address] [place] [address] PCP - General 11/01/18 11/25/23 Laborer Vineyard Relationship Specialty Start Date End Date Ryley Jeter MD [address] [place] [address] PCP - General Family Medicine 10/08/23 Laborer Vineyard Relationship Specialty Start Date End Date Ryley Jeter MD [address] [place] [address] PCP - General Family Medicine 10/08/23 Laborer Vineyard Relationship Specialty Start Date End Date Ryley Jeter MD [address] [place] [address] PCP - General Family Medicine 10/08/23 Laborer Vineyard Relationship Specialty Start Date End Date Ryley Jeter MD [address] [place] [address] PCP - General Family Medicine 10/08/23 Laborer Vineyard Relationship Specialty Start Date End Date Ayanna Albert DO [address] [place] [address] PCP - [employer] Medicare Advantage PCP 11/01/23 Generic Provider, No Assigned Pcp, [address] [place] [address] PCP - General Internal Medicine 11/26/23 Laborer Vineyard Relationship Specialty Start Date End Date Ryley Jeter MD [address] [place] [address] PCP - General Family Medicine 10/08/23 Laborer Vineyard Relationship Specialty Start Date End Date Ayanna Albert DO [address] [place], [place] [id number] PCP - [employer] Medicare Advantage PCP 11/01/23 Generic Provider, No Assigned PcpMD [address] [place] [address] PCP - General Internal Medicine 11/26/23 Laborer Vineyard Relationship Specialty Start Date End Date Ryley Jeter MD [address] [place] [address] PCP - General Family Medicine 10/08/23 Laborer Vineyard Relationship Specialty Start Date End Date Ryley Jeter MD [address] [place] [address] PCP - General Family Medicine 10/08/23 Laborer Vineyard Relationship Specialty Start Date End Date Ryley Jeter MD [address] [place] [address] PCP - General Family Medicine 10/08/23 Laborer Vineyard Relationship Specialty Start Date End Date Ryley Jeter MD [address] [place] [address] PCP - General Family Medicine 10/08/23 Laborer Vineyard Relationship Specialty Start Date End Date Ryley Jeter MD [address] [place] [address] PCP - General Family Medicine 10/08/23 Laborer Vineyard Relationship Specialty Start Date End Date Ryley Jeter MD [address] [place], [place] [address] PCP - General Family Medicine 10/08/23 Laborer Vineyard Relationship Specialty Start Date End Date Ryley Jeter MD [address] [place], [place] [id number] PCP - General Family Medicine 10/08/23 Laborer Vineyard Relationship Specialty Start Date End Date Ryley Jeter MD [address] [place], [place] [address] PCP - General Family Medicine 10/08/23 Kristy Parker MD [address] [place] [address] Consulting Physician Vascular Surgery 11/09/24 Laborer Vineyard Relationship Specialty Start Date End Date Ryley Jeter MD [address] [place], [place] [id number] PCP - General Family Medicine 10/08/23 Kristy Parker MD [address] [place] [address] Consulting Physician Vascular Surgery 11/09/24 Laborer Vineyard Relationship Specialty Start Date End Date Ryley Jeter MD [address] [place], [place] [address] PCP - General Family Medicine 10/08/23 Kristy Parker MD [address] [place] [address] Consulting Physician Vascular Surgery 11/09/24 Laborer Vineyard Relationship Specialty Start Date End Date Ryley Jeter MD [address] [place], [place] [address] PCP - General Family Medicine 10/08/23 Kristy Parker MD [address] [place] [address] Consulting Physician Vascular Surgery 11/09/24 Laborer Vineyard Relationship Specialty Start Date End Date Ryley Jeter MD [address] [place], [place] [address] PCP - General Family Medicine 10/08/23 Kristy Parker MD [address] [place] [address] Consulting Physician Vascular Surgery 11/09/24 Team Status: Inactive Member Role Status Dates Ryley Jeter MD Primary Care Provider Active St art: February 06, 2025 End: February 06, 2025 Dr. Kerwin Tamayo MD Attending Provider Activ e Start: February 06, 2025 End: February 06, 2025 Laborer Vineyard Relationship Specialty Start Date End Date Ryley Jeter MD [address] [place], [place] [address] PCP - General Family Medicine 10/08/23 Kristy Parker MD [address] [place] [address] Consulting Physician Vascular Surgery 11/09/24 Laborer Vineyard Relationship Specialty Start Date End Date Ryley Jeter MD [address] [place], [place] [address] PCP - General Family Medicine 10/08/23 Kristy Parker MD [address] [place] [address] Consulting Physician Vascular Surgery 11/09/24 Laborer Vineyard Relationship Specialty Start Date End Date Ryley Jeter MD [address] [place], [place] [address] PCP - General Family Medicine 10/08/23 Kristy Parker MD [address] [place] [address] Consulting Physician Vascular Surgery 11/09/24 Laborer Vineyard Relationship Specialty Start Date End Date Generic Provider, No Assigned PcpMD PCP - General Internal Medicine 11/26/23 Laborer Vineyard Relationship Specialty Start Date End Date Ryley Jeter MD [address] [place], [place] [address] PCP - General Family Medicine 10/08/23 Kristy Parker MD [address] [place] [address] Consulting Physician Vascular Surgery 11/09/24 Laborer Vineyard Relationship Specialty Start Date End Date Ryley Jeter MD [address] [place], [place] [address] PCP - General Family Medicine 10/08/23 Kristy Parker MD [address] [place] [address] Consulting Physician Vascular Surgery 11/09/24 Team Status: [...] Active Star t: April 04, 2025 Dr. iNco Storey MD Other Provider Active St art: [...] t: April 04, 2025 Dr. Dillon Moses , Other Provider Active St art: April [...] Active Start: April 05, 2025 Dr. Dyana Hwnag MD Admit Provider Active St art: April [...] Provider Active Start: April 08, 2025 Dr. Ntae Forbes MD Other Provider Active Star t: [...] dose 0203 (Given - Provider: Scarlet Ashford, HEALTH SAFETY AND ENVIRONMENT MANAGER - Comment: albuterol) amLODIPine (Norvasc) tablet 10 [...] Heather Leonardo, FIDEL)0342 (Stopped - Provider: Heather Leonadro, FIDEL) azithromycin (Zithromax) in dextrose 5 % [...] Provider: Jody Ball RN)0036 (Stopped - Provider: oJdy Ball RN) 0012 (New Bag - Provider: [...] Gorman RN)1258 (Given - Provider: Moody Gorman, FIEDL)1846 (Given - Provider: Moody Gorman RN) insulin [...] Juares RRT)1153 (Given - Provider: Nancy Juares HEALTH SAFETY AND ENVIRONMENT MANAGER)1821 (Given - Provider: Scarlet [place] RRT)2145 (Given [...] Provider: Amber Pascal RRT)1914 (Start - Provider: Malkia Hemphill RRT)2310 (Start - Provider: Malika L Alto, HEALTH SAFETY AND ENVIRONMENT MANAGER) 0623 (Rate/Dose Verify - Provider: Delmar Mcgowan, [...] 221 (Given - Provider: Kristi Bowman RN) [id number] (Zosyn) IV 3.375 g (COMPLETED) 3.375 g, [...] 11/27/23 at 0337, Anginal pain, may repeat [id number] x3, then notify physician. DO NOT CRUSH [...] Comment: 8 units instructed verbal order from [facility]) isosorbide mononitrate (IMDUR) 24 hr tablet 30 [...] BE BASED ON THE PRIMARY CLINICAL RECORDS. [facility]. provides no warranty or guarantee of the accuracy or completeness of information in this document.
[2025-04-19 02:46] LABS: Magnesium 2.3 mg/dL (1.5-2.2)
[2025-04-19 03:11] LABS: Bedside Glucose 437 mg/dL (74-106)
--- NOTE | 2025-04-19 03:18 | NM_ITS ---
PROCEDURE: LUNG SCAN VENT/PERF 04/19/2025 REASON FOR EXAM: SHORTNESS OF BREATH AND ELEVATED D-DIMER OF 2.17. TECHNIQUE: LUNG SCAN VENT/PERF using 50 mCi of DTPA ventilation imaging and 6 mCi Tc-99m MAA intravenously for perfusion imaging. Posterior ventilation images. Anterior, posterior, right and left lateral, WEN, YAKUT, RPO, and LPO perfusion images. COMPARISON: Prior chest radiograph done earlier in the day. FINDINGS: Ventilation images: Patchy bilateral ventilation defects suggestive of airway disease. Perfusion images: No suspicious perfusion defects. NM/Lung Scan Vent/Perf IMPRESSION: Low probability scan for pulmonary embolism. Findings suggestive of airway trapping/asthma. [facility]
--- OUTSIDE RECORDS SUMMARY | 2025-04-19 03:31 | XMS RPT_ITS | CCD ---
Author Organization [facility] Care Team Providers Care Service Vehicle Operator Name Role Phone Nancy Mirza Unavailable [...] Dr. Nancy Key Primary Care Unavaila ble Yuik, Dr. Nancy Key Attending Unavaila ble Yuki, [...] e Provider Unavailable Kristy Parker MD Unavailable [phone] GENERIC PROVIDER, NO ASSIGNED PCP Primary Care [...] Care Unavailable AYANNA ALBERT Attending Unavailable AYANNA LABERT Referring Unavailable GENERIC PROVIDER, NO ASSIGNED PCP [...] URIBE, Dr. Grace Wilson Other Provider [phone] Teresa URIBE, Dr. Jose Perez Other Provider Ashly URIBE, Dr. Zavala Other Provider Bridget URIBE, Dr. Pizano Other Provider Angel URIBE, Dr. Rosa Other Provider Dr. Landry Fagan DO Attending Provider Dr. Landry Fagan DO Other Provider Chuy URIBE, Dr. Nancy Delgado Other Provider Susan URIBE, Dr. Stewart Other Provider [phone] Elvie URIBE, Dr. Butcher Other Provider [phone] Jesus URIBE, Dr. Wood Other Provider Keenan URIBE, Dr. Song Other Provider Mervin URIBE, Dr. Gutiérrez Other Provider [phone] Deep URIBE, Dr. Arredondo Other Provider Dr. Bhakti Melara MD Other Provider Radha URIBE, Dr. Guerra Other Provider [facility] ari[facility] Woods MD, Dr. Mar Other Provider Demetri URIBE, Dr. Altamirano Other Provider Cordelia URIBE, Dr. Walsh Other Provider Lucinda URIBE, Dr. Barton Other Provider Josué VERDUZCO, Dr. Carranza Other Provider Tiffanie URIBE, Dr. Ballesteros Other Provider [phone] Jay Gallardo MD, Dr. Corona Other Provider Asim VERDUZCO, Dr. Mantilla Other Provider Andrei URIBE, Dr. Sullivan Other Provider Callum URIBE, Dr. Kent Other Provider Sai [...] PATY ORTEGA Attending UnavailWOO Chow Attending Unavailable [facility] Primary Care Unavailable Landry Fagan Attending Unavailable Dyana Hwang Referring Unavailable Dyana Hwang L Admitting Unavailable Tennille Limon Consulting Unavailable [facility] Harinder Gill Consulting [...] Katie Attending Unavailable Ryley Jeter Attending Unavailable [facility] Primary Care Unavailable Kerwin [facility]ayo [facility] Primary [facility] Unavailable [facility]ff[facility] Un[facility] Young Koroma Admitting [...] Drug Allergy 08-24-20 23 Other (See Comments) [facility] HMG-CoA Reductase Inhibitors (statins) (3 sources) Hmg-Coa Reductase Inhibitors (Statins) Drug Allergy 01-08-20 16 [facility] (20 sources) Hmg-Coa Reductase Inhibitors (Statins); Translations: [JHXSTJQ-SIY-VWN REDUCTASE INHIBITORS] Propensity to adverse reactions to drug 01-08-20 16 Other [facility] Work Phone: (6 sources) HMG-CoA reductase inhibitor Propensity to adverse reactions to drug 01-08-20 16 [facility] (20 sources) HMG-CoA reductase inhibitor Propensity to adverse reactions to drug 01-08-20 16 Unknown [facility] (17 sources) predniSONE; Translations: [predniSONE TABS] Drug Allergy 08-24-20 23 Other, Other (See Comments) [facility] (4 sources) predniSONE; Translations: [PREDNISONE] Drug Allergy 08-24-20 [facility] (3 sources) Glucocorticoid Receptor Agonists Propensity to adverse reactions 04-06-20 24 Other [facility] Comment on above: Blood sugar increase (1 source) Corticosteroids Drug allergy (disorder) 04-03-20 [facility] Repository (1 source) Vnnjmxy-Czw-Dyh Reductase Inhibitor Drug allergy (disorder) 04-03-20 25 [facility] Repository Medications Current Medications Medication [...] 11/27/23 at 0337 Anginal pain, may repeat [id number] x3, then notify physician. DO NOT CRUSH [...] PLACED TUBE OR TUBE less than 14 Vincentian. To administer dissolved tablet(s) mix with 4 [...] (porcine) injection 4,000 Units Start: 11-26-2023 take [id number] [IU] intravenously every four hours as needed [...] Coronary arteriosclerosis; Translations: [Atherosclerotic heart disease of [place] coronary artery without angina pectoris] Onset: 10-17-2024 [...] W/Diff, Automatedon 04-01 Absolute Neut Normal 2.0-7.7 [facility] Comment on above: Result Comment: Canc elled via OM: Order cancelled - Patient discharged Performed By: #### L 100.0100 ####[facility] [address] [place], [address] HCT Normal 40-54 [facility] Comment on above: Result Comment: Canc elled via OM: Order cancelled - Patient discharged Performed By: #### L 100.0100 ####[facility] [address] [place], [address] HGB Normal 13.0-16.5 [facility] Comment on above: Result Comment: Canc elled via OM: Order cancelled - Patient discharged Performed By: #### L 100.0100 ####[facility] [address] [place], [address] MCH Normal 27.0-32.0 [facility] Comment on above: Result Comment: Canc elled via OM: Order cancelled - Patient discharged Performed By: #### L 100.0100 ####[facility] [address] [place], [address] MCHC Normal 32-36 [facility] Comment on above: Result Comment: Canc elled via OM: Order cancelled - Patient discharged Performed By: #### L 100.0100 ####[facility] [address] [place], [address] MCV Normal 80-94 [facility] Comment on above: Result Comment: Canc elled via OM: Order cancelled - Patient discharged Performed By: #### L 100.0100 ####[facility] [address] [place], [address] NEUT% Normal 47-70 [facility] Comment on above: Result Comment: Canc elled via OM: Order cancelled - Patient discharged Performed By: #### L 100.0100 ####[facility] [address] [place], [address] PLT Normal 150-450 [facility] Comment on above: Result Comment: Canc elled via OM: Order cancelled - Patient discharged Performed By: #### L 100.0100 ####[facility] [address] [place], [address] RBC Normal 4.6-6.2 [facility] Comment on above: Result Comment: Canc elled via OM: Order cancelled - Patient discharged Performed By: #### L 100.0100 ####[facility] [address] [place], [address] RDW CV Normal 11.6-14.6 [facility] Comment on above: Result Comment: Canc elled via OM: Order cancelled - Patient discharged Performed By: #### L 100.0100 ####[facility] [address] [place], [address] RDW SD Normal 35.1-43.9 [facility] Comment on above: Result Comment: Canc elled via OM: Order cancelled - Patient discharged Performed By: #### L 100.0100 ####[facility] [address] [place], [address] WBC Normal 4.4-11.0 [facility] Comment on above: Result Comment: Canc elled via OM: Order cancelled - Patient discharged Performed By: #### L 100.0100 ####[facility] [address] [place], [address] Absolute lymphocyte countOrd ered By: Grace Arnold on 04-10-2025 Lymphocytes Auto (Unsp spec) [#/Vol] 1.09 10*3/uL 0.83-4.51 [facility] Absolute neutrophil countOrd ered By: Grace Arnold on 04-10-2025 Neutrophils (Bld) [#/Vol] 9.6 10*3/uL High 2.0-7.7 [facility] Anion gap in Serum or Plasma Ordered By: Graceanabelle Arnold on 04-10-2025 Anion gap [Moles/Vol] 13 mmol/L 5-15 [facility] Automated lymphocyte count a s percentage of total leukocytesOrdered By: Grace Manjeetvinod on 04-10-2025 Lymphocytes/100 WBC Auto (Unsp spec) 9.4 % Low 19-41 [facility] BUN/creatinine ratioOrdered By: Grace Arnold on 04-10-2025 Urea nitrogen/Creatinine [Mass ratio] 22.8 mg/mg High 10-20 [facility] Basic Metabolic Profile (BMP )on 04-10-2025 BUN/CRE 22.8 RATIO High 10- [facility] Comment on above: Performed By: #### L 500.2500 ####[facility] [address] [place], [address] Calcium [Mass/Vol] 8.5 mg/dL Normal 7.6-11.0 [facility] Comment on above: Performed By: #### L 500.2500 ####[facility] [address] [place], [address] Chloride [Moles/Vol] 101 mmol/L Normal 98-108 [facility] Comment on above: Performed By: #### L 500.2500 ####[facility] [address] [place], [address] CO2 [Moles/Vol] 22.6 mmol/L Normal 21.0-32.0 [facility] Comment on above: Performed By: #### L 500.2500 ####[facility] [address] [place], [address] Creatinine [Mass/Vol] 3.48 mg/dL High 0.70-1.20 [facility] Comment on above: Performed By: #### L 500.2500 ####[facility] [address] [place], [address] ECRCL 15.24 ml/min Low 50-250 [facility] Comment on above: Performed By: #### L 500.2500 ####[facility] [address] [place], [address] GAP 13 Normal 5-15 [facility] Comment on above: Performed By: #### L 500.2500 ####[facility] [address] [place], [address] GFR/1.73 sq M.predicted among non-blacks MDRD (S/P/Bld) [Vol rate/Area] 17 mL/min/{1.73_m2} Low >60 [facility] Comment on above: Result Comment: mL/m in/1.73m2 CKD-EPI Creatinine Equation (2020) Performed By: #### L 500.2500 ####[facility] [address] [place], [address] Glucose [Mass/Vol] 287 mg/dL High 70-99 [facility] Comment on above: Performed By: #### L 500.2500 ####[facility] [address] [place], [address] Potassium [Moles/Vol] 4.2 mmol/L Normal 3.3-5.1 [facility] Comment on above: Performed By: #### L 500.2500 ####[facility] [address] [place], [address] Sodium [Moles/Vol] 137 mmol/L Normal 133-145 [facility] Comment on above: Performed By: #### L 500.2500 ####[facility] [address] [place], [address] Urea nitrogen [Mass/Vol] 79 mg/dL High 4-19 [facility] Comment on above: Performed By: #### L 500.2500 ####[facility] [address] [place], [address] Basophil percentageOrdered B y: Grace Arnold on 04-10-2025 Basophils/100 WBC (Bld) 0.1 % 0-1 [facility] Bedside Glucoseon 04-10-2025 FINGERSTICK GLU 223 mg/dL High 74-106 [facility] Comment on above: Result Comment: ADITI GEMENT OF PATIENT CARE PER NURSING PROTOCOL Performed By: #### L 501.080 ####[facility] [address] [place], [address] FINGERSTICK GLU 274 mg/dL High 74-106 [facility] Comment on above: Result Comment: DAITI GEMENT OF PATIENT CARE PER NURSING PROTOCOL Performed By: #### L 501.080 ####[facility] [address] [place], [address] CBC W/Diff, Automatedon 04-01 0-2024 Absolute Lymph 1.09 X10 3/uL Normal 0.83-4.51 [facility] Comment on above: Performed By: #### L 100.0100 ####[facility] [address] [place], [address] Absolute Neut 9.6 X10 3/uL High 2.0-7.7 [facility] Comment on above: Performed By: #### L 100.0100 ####[facility] [address] [place], [address] Basophils/100 WBC (Bld) 0.1 % Normal 0-1 [facility] Comment on above: Performed By: #### L 100.0100 ####[facility] [address] [place], [address] Eosinophils/100 WBC (Bld) 0.1 % Normal 0-5 [facility] Comment on above: Performed By: #### L 100.0100 ####[facility] [address] [place], [address] Erythrocyte distribution width (RBC) [Ratio] 13.6 % Normal 11.6-14.6 [facility] Comment on above: Performed By: #### L 100.0100 ####[facility] [address] [place], [address] Hematocrit (Bld) [Volume fraction] 26.0 % Low 40-54 [facility] Comment on above: Performed By: #### L 100.0100 ####[facility] [address] [place], [address] Hemoglobin (Bld) [Mass/Vol] 8.6 g/dL Low 13.0-16.5 [facility] Comment on above: Performed By: #### L 100.0100 ####[facility] [address] [place], [address] IG% 0.800 Normal 0.0-0.9 [facility] Comment on above: Result Comment: IG% - Immature Granulocytes (promyelocytes, myelocytes andmetamyelocytes) > 1% indicates that a LEFT SHIFT is Present. Performed By: #### L 100.0100 ####[facility] [address] [place], [address] Lymphocytes/100 WBC (Bld) 9.4 % Low 19-41 [facility] Comment on above: Performed By: #### L 100.0100 ####[facility] [address] [place], [address] MCH (RBC) [Entitic mass] 30.2 pg Normal 27.0-32.0 [facility] Comment on above: Performed By: #### L 100.0100 ####[facility] [address] [place], [address] MCHC (RBC) [Mass/Vol] 33.1 g/dL Normal 32-36 [facility] Comment on above: Performed By: #### L 100.0100 ####[facility] [address] [place], [address] MCV (RBC) [Entitic vol] 91.2 fL Normal 80-94 [facility] Comment on above: Performed By: #### L 100.0100 ####[facility] [address] [place], [address] Monocytes/100 WBC (Bld) 7.0 % Normal 0-10 [facility] Comment on above: Performed By: #### L 100.0100 ####[facility] [address] [place], [address] Neutrophils/100 WBC (Bld) 82.6 % High 47-70 [facility] Comment on above: Performed By: #### L 100.0100 ####[facility] [address] [place], [address] Nucleated RBC (Bld) [#/Vol] 0 10*3/uL Normal 0-5 [facility] Comment on above: Performed By: #### L 100.0100 ####[facility] [address] [place], [address] Platelet mean volume (Bld) [Entitic vol] 12.4 fL High 6.2-12.0 [facility] Comment on above: Performed By: #### L 100.0100 ####[facility] [address] [place], [address] Platelets (Bld) [#/Vol] 193 10*3/uL Normal 150-450 [facility] Comment on above: Performed By: #### L 100.0100 ####[facility] [address] [place], [address] RBC (Bld) [#/Vol] 2.85 10*6/uL Low 4.6-6.2 [facility] Comment on above: Performed By: #### L 100.0100 ####[facility] [address] [place], [address] RDW SD 45.1 fl High 35.1-43.9 [facility] Comment on above: Performed By: #### L 100.0100 ####[facility] [address] [place], [address] WBC (Bld) [#/Vol] 11.6 10*3/uL High 4.4-11.0 [facility] Comment on above: Performed By: #### L 100.0100 ####[facility] [address] [place], [address] Carbon dioxide, total [Moles /volume] in Central venous bloodOrdered By: Grace Arnold on 04-10-2025 CO2 [Moles/Vol] 22.6 mmol/L 21.0-32.0 [facility] Chloride assayOrdered By: Na na Florentino on 04-10-2025 Chloride [Moles/Vol] 101 mmol/L 98-108 [facility] Discharge Instructionon 04-01 Discharge Instruction Normal [facility] Eosinophil percentageOrdered By: Grace Arnold on 04-10-2025 Eosinophils/100 WBC (Bld) 0.1 % 0-5 [facility] Erythrocyte distribution wid th ratioOrdered By: Grace Arnold on 04-10-2025 Erythrocyte distribution width (RBC) [Ratio] 13.6 % 11.6-14.6 [facility] Erythrocyte distribution wid th standard deviationOrdered By: Grace Arnold on 04-10-2025 Erythrocyte distribution width (RBC) [Ratio] 45.1 fl High 35.1-43.9 [facility] Glomerular filtration rate ( GFR) estimation/1.73 sq m using serum, plasma, or whole bOrdered By: Grace Arnold on 04-10-2025 GFR/1.73 sq M.predicted among non-blacks MDRD (S/P/Bld) [Vol rate/Area] 17 mL/min/{1.73_m2} Low >60 [facility] Comment on above: mL/min/1.73m2 CKD-EP I Creatinine Equation (2020) Gl[facility] at [facility] deOrdered By: Grace Arnold on 04-10-2025 Glucose [Mass/Vol] 223 mg/dL High 74-106 [facility] Comment on above: MANAGEMENT OF PATIEN T CARE PER NURSING PROTOCOL Hematocrit Auto (Bld) [Volum e fraction]Ordered By: Grace Arnold on 04-10-2025 Hematocrit (Bld) [Volume fraction] 26.0 % Low 40-54 [facility] Hemoglobin measurementOrdere d By: Grace Arnold on 04-10-2025 Hemoglobin (Bld) [Mass/Vol] 8.6 g/dL Low 13.0-16.5 [facility] Immature granulocytes/100 WB C Auto (Bld)Ordered By: Grace Arnold on 04-10-2025 Immature granulocytes/100 WBC (Bld) 0.800 % 0.0-0.9 [facility] Comment on above: IG% - Immature Granu locytes (promyelocytes, myelocytes and metamyelocytes) > 1% indicates that a LEFT SHIFT is Present. MCV (mean corpuscular volume ) determinationOrdered By: Grace Arnold on 04-10-2025 MCV (RBC) [Entitic vol] 91.2 fL 80-94 [facility] Mean corpuscular hemoglobin (MCH) determinationOrdered By: Grace Arnold on 04-10-2025 MCH (RBC) [Entitic mass] 30.2 pg 27.0-32.0 [facility] Mean corpuscular hemoglobin concentration (MCHC) determinationOrdered By: Grace Arnold on 04-10-2025 MCHC (RBC) [Mass/Vol] 33.1 g/dL 32-36 [facility] Mean platelet volume determi nationOrdered By: Grace Arnold on 04-10-2025 Platelet mean volume (Bld) [Entitic vol] 12.4 fL High 6.2-12.0 [facility] Monocyte percentageOrdered B y: Grace Arnold on 04-10-2025 Monocytes/100 WBC (Bld) 7.0 % 0-10 [facility] Neutrophil percentageOrdered By: Grace Arnold on 04-10-2025 Neutrophils/100 WBC (Bld) 82.6 % High 47-70 [facility] Nucleated red blood cell per centageOrdered By: Garce Arnold on 04-10-2025 Nucleated RBC/100 WBC (Bld) [Ratio] 0 % 0-5 [facility] Platelet countOrdered By: Kesha Arnold on 04-10-2025 Platelets (Bld) [#/Vol] 193 10*3/uL 150-450 [facility] Potassium measurement (mass/ volume)Ordered By: Grace Arnold on 04-10-2025 Potassium (Unsp spec) [Mass/Vol] 4.2 mmol/L 3.3-5.1 [facility] RBC Auto (Bld) [#/Vol]Ordere d By: Grace Arnold on 04-10-2025 RBC (Bld) [#/Vol] 2.85 10*6/uL Low 4.6-6.2 [facility] Serum creatinine measurement (mass/volume)Ordered By: Grace Arnold on 04-10-2025 Creatinine [Mass/Vol] 3.48 mg/dL High 0.70-1.20 [facility] Serum glucose measurement (m ass/volume)Ordered By: Grace Arnold on 04-10-2025 Glucose [Mass/Vol] 287 mg/dL High 70-99 [facility] Serum or plasma calcium nikkie urement (mass/volume)Ordered By: Grace Arnold on 04-10-2025 Calcium [Mass/Vol] 8.5 mg/dL 7.6-11.0 [facility] Serum or plasma urea nitroge n measurement (mass/volume)Ordered By: Grace Arnold on 04-10-2025 Urea nitrogen [Mass/Vol] 79 mg/dL High 4-19 [facility] Sodium levelOrdered By: Grace Arnold on 04-10-2025 Sodium [Moles/Vol] 137 mmol/L 133-145 [facility] White blood cell (WBC) count Ordered By: Grace Arnold on 04-10-2025 WBC (Bld) [#/Vol] 11.6 10*3/uL High 4.4-11.0 [facility] ANCAon 04-09-2025 Atypical pANCA <1:20 Normal Neg:<1:20 [facility] Comment on above: Result Comment: The atypical pANCA pattern has been observed in asignificant percentage of patients with ulcerative colitis,primary sclerosing cholangitis and autoimmune hepatitis.Performed at: CB - [facility] [address] [place], [place] [id number] Director: Todd Anderson PhD, Phone: [phone] Performed By: #### L 3300.1200 ####[facility] [address] [place], [place], [id number] Cytoplasmic Ab <1:20 Normal Neg:<1:20 [facility] Comment on above: Performed By: #### L 3300.1200 ####[facility] [address] [place], [place], [id number] Perinuclear Ab. <1:20 Normal Neg:<1:20 [facility] Comment on above: Result Comment: The presence [...] only by EIA. Ref. AM J Clin Pftbai5135;111:507-513. Performed By: #### L 3300.1200 ####[facility] [address] [place], [place], [address] Anti-Glomerular Basement Mem bon 04-09-2025 ANTI-GLOM BM Ab < 0.2 Normal 0.0-0.9 [facility] Comment on above: Result Comment: Perf ormed at: - [facility] [address] [id number] Director: Mignon Taylor MD, Phone: [phone] Performed By: #### L 5587.3104 ####[facility] [address] [place], [place], [address] Basic Metabolic Profile (BMP )on 04-09-2025 BUN/CRE 21.8 RATIO High 10-20 [facility] Comment on above: Performed By: #### L 500.2500 ####[facility] [facility] [address] [place], [address] Calcium [Mass/Vol] 8.5 mg/dL Normal 7.6-11.0 [facility] Comment on above: Performed By: #### L 500.2500 ####[facility] [address] [place], [address] Chloride [Moles/Vol] 104 mmol/L Normal 98-108 [facility] Comment on above: Performed By: #### L 500.2500 ####[facility] [address] [place], [address] CO2 [Moles/Vol] 21.6 mmol/L Normal 21.0-32.0 [facility] Comment on above: Performed By: #### L 500.2500 ####[facility] [address] [place], [address] Creatinine [Mass/Vol] 3.42 mg/dL High 0.70-1.20 [facility] Comment on above: Performed By: #### L 500.2500 ####[facility] [address] [place], [address] ECRCL 15.55 ml/min Low 50-250 [facility] Comment on above: Performed By: #### L 500.2500 ####[facility] [address] [place], [address] GAP 15 Normal 5-15 [facility] Comment on above: Performed By: #### L 500.2500 ####[facility] [address] [place], [address] GFR/1.73 sq M.predicted among non-blacks MDRD (S/P/Bld) [Vol rate/Area] 17 mL/min/{1.73_m2} Low >60 [facility] Comment on above: Result Comment: mL/m in/1.73m2 CKD-EPI Creatinine Equation (2020) Performed By: #### L 500.2500 ####[facility] [address] [place], [address] Glucose [Mass/Vol] 146 mg/dL High 70-99 [facility] Comment on above: Performed By: #### L 500.2500 ####[facility] [address] [place], [address] Potassium [Moles/Vol] 3.4 mmol/L Normal 3.3-5.1 [facility] Comment on above: Performed By: #### L 500.2500 ####[facility] [address] [place], [address] Sodium [Moles/Vol] 140 mmol/L Normal 133-145 [facility] Comment on above: Performed By: #### L 500.2500 ####[facility] [address] [place], [address] Urea nitrogen [Mass/Vol] 74 mg/dL High 4-19 [facility] Comment on above: Performed By: #### L 500.2500 ####[facility] [address] [place], [address] Bedside Glucoseon 04-09-2025 FINGERSTICK GLU 423 mg/dL High 74-106 [facility] Comment on above: Result Comment: ADITI GEMENT OF PATIENT CARE PER NURSING PROTOCOL Performed By: #### L 501.080 ####[facility] [address] [place], [address] FINGERSTICK GLU 217 mg/dL High 74-106 [facility] Comment on above: Result Comment: ADITI GEMENT OF PATIENT CARE PER NURSING PROTOCOL Performed By: #### L 501.080 ####[facility] [address] [place], [address] FINGERSTICK GLU 146 mg/dL High 74-106 [facility] Comment on above: Result Comment: ADITI GEMENT OF PATIENT CARE PER NURSING PROTOCOL Performed By: #### L 501.080 ####[facility] [address] [place], [address] FINGERSTICK GLU 141 mg/dL High 74-106 [facility] Comment on above: Result Comment: ADITI GEMENT OF PATIENT CARE PER NURSING PROTOCOL Performed By: #### L 501.080 ####[facility] [address] [place], [address] FINGERSTICK GLU 443 mg/dL High 74-106 [facility] Comment on above: Result Comment: ADITI GEMENT OF PATIENT CARE PER NURSING PROTOCOL Performed By: #### L 501.080 ####[facility] [address] [place], [address] FINGERSTICK GLU 475 mg/dL Invalid Interpretation Code 74-106 [facility] Comment on above: Result Comment: ADITI GEMENT OF PATIENT CARE PER NURSING PROTOCOL Performed By: #### L 501.080 ####[facility] [address] [place], [address] FINGERSTICK GLU 312 mg/dL High [address] [place] [address] Comment on above: Result Comment: ADITI GEMENT OF PATIENT CARE PER NURSING PROTOCOL Performed By: #### L 501.080 ####[facility] [address] [place], [address] CBC W/Diff, Automatedon 06-0 9-2024 Absolute Lymph 1.84 X10 3/uL Normal 0.83-4.51 [facility] Comment on above: Performed By: #### L 100.0100 ####[facility] [address] [place], [address] Absolute Neut 10.1 X10 3/uL High 2.0-7.7 [facility] Comment on above: Performed By: #### L 100.0100 ####[facility] [address] [place], [address] Basophils/100 WBC (Bld) 0.1 % Normal 0-1 [facility] Comment on above: Performed By: #### L 100.0100 ####[facility] [address] [place], [address] Eosinophils/100 WBC (Bld) 0.1 % Normal 0-5 [facility] Comment on above: Performed By: #### L 100.0100 ####[facility] [address] [place], [address] Erythrocyte distribution width (RBC) [Ratio] 14.0 % Normal 11.6-14.6 [facility] Comment on above: Performed By: #### L 100.0100 ####[facility] [address] [place], [address] Hematocrit (Bld) [Volume fraction] 25.5 % Low 40-54 [facility] Comment on above: Performed By: #### L 100.0100 ####[facility] [address] [place], [address] Hemoglobin (Bld) [Mass/Vol] 8.7 g/dL Low 13.0-16.5 [facility] Comment on above: Performed By: #### L 100.0100 ####[facility] [address] [place], [address] IG% 0.700 Normal 0.0-0.9 [facility] Comment on above: Result Comment: IG% - Immature Granulocytes (promyelocytes, myelocytes andmetamyelocytes) > 1% indicates that a LEFT SHIFT is Present. Performed By: #### L 100.0100 ####[facility] [address] [place], [address] Lymphocytes/100 WBC (Bld) 14.1 % Low 19-41 [facility] Comment on above: Performed By: #### L 100.0100 ####[facility] [address] [place], [address] MCH (RBC) [Entitic mass] 30.2 pg Normal 27.0-32.0 [facility] Comment on above: Performed By: #### L 100.0100 ####[facility] [address] [place], [address] MCHC (RBC) [Mass/Vol] 34.1 g/dL Normal 32-36 [facility] Comment on above: Performed By: #### L 100.0100 ####[facility] [address] [place], [address] MCV (RBC) [Entitic vol] 88.5 fL Normal 80-94 [facility] Comment on above: Performed By: #### L 100.0100 ####[facility] [address] [place], [address] Monocytes/100 WBC (Bld) 7.4 % Normal 0-10 [facility] Comment on above: Performed By: #### L 100.0100 ####[facility] [address] [place], [address] Neutrophils/100 WBC (Bld) 77.6 % High 47-70 [facility] Comment on above: Performed By: #### L 100.0100 ####[facility] [address] [place], [address] Nucleated RBC (Bld) [#/Vol] 0 10*3/uL Normal 0-5 [facility] Comment on above: Performed By: #### L 100.0100 ####[facility] [address] [place], [address] Platelet mean volume (Bld) [Entitic vol] 12.0 fL Normal 6.2-12.0 [facility] Comment on above: Performed By: #### L 100.0100 ####[facility] [address] [place], [address] Platelets (Bld) [#/Vol] 191 10*3/uL Normal 150-450 [facility] Comment on above: Performed By: #### L 100.0100 ####[facility] [address] [place], [address] RBC (Bld) [#/Vol] 2.88 10*6/uL Low 4.6-6.2 [facility] Comment on above: Performed By: #### L 100.0100 ####[facility] [address] [place], [address] RDW SD 45.6 fl High 35.1-43.9 [facility] Comment on above: Performed By: #### L 100.0100 ####[facility] [address] [place], [address] WBC (Bld) [#/Vol] 13.0 10*3/uL High 4.4-11.0 [facility] Comment on above: Performed By: #### L 100.0100 ####[facility] [address] [place], [address] Electrocardiogram reportOrde red By: Barbie Martin on 04-09-2025 EKG study [facility] [address] [place] [address] 12 Lead EKG 04/04/252111 MR#: [id number] Acct: [id number] Name: ENOC ARMANDO Rep #:[id number] : 1945 79 From: Barbie black MD Attending Dr: Dr. Grace Arnold MD Status: ADM IN Ordering Dr: Grace Arnold MD Date: 04/04/25 Location: [facility] Sex: M C Admitted: 04/03/25 Test Reason [...] Confirmed by VERONICA URIBE, MINERVA ([id number]), editor managing newspaper BLANCO BOCANEGRA ([id number]) on04/09/2025 7:17:16 AM Referred By: Confirmed By: MINERVA MARTIN MD 04/09/25 0717 Date _ Barbie Martin MD CC: Dr. Ryley Jeter MD; Dr. Grace Arnold MD ~ Signed [facility] Work Phone: EKG study [facility] Cardi[facility] Services [address] [place] [address] 12 Lead EKG 04/04/252 MR#: [id number] Acct: [id number] Name: ENOC ARMANDO Rep #:[id number] : 1945 79 From: Barbie black MD Attending Dr: Dr. Grace Arnold MD Status: ADM IN Ordering Dr: Grace Arnold MD Date: 04/04/25 Location: [facility] Sex: M C Admitted: 04/03/25 Test Reason [...] Confirmed by VERONICA URIBE, MINERVA ([id number]), editor managing newspaper BLANCO BOCANEGRA ([id number]) 04/09/2025 7:17:37 AM Referred By: Confirmed By: MINERVA MARTIN MD 04/09/25716 _ Barbie Martin MD CC: Dr. Ryley Jeter MD; Dr. Grace Arnold MD ~ Signed [facility] Work Phone: EKG study [facility] Cardi[facility] Services [address] [place] [address] 12 Lead EKG 04/04/252108 MR#: [id number] Acct: [id number] Name: ENOC ARMANDO Rep #:[id number] : 1945 79 From: Barbie black MD Attending Dr: Dr. Grace Arnold MD Status: ADM IN Ordering Dr: Grace Arnold MD Date: 04/04/25 Location: [facility] Sex: M C Admitted: 04/03/25 Test Reason [...] by VERONICA URIBE, MINERVA ([id number]), BLANCO Coyne ([id number]) on04/09/2025 7:17:54 AM Referred By: Confirmed By: MINERVA MARTIN MD 04/09/25716 _ Barbie Martin MD CC: Dr. Ryley Jeter MD; Dr. Grace Arnold MD ~ Signed [facility] Work Phone: EKG study [facility] Services [address] [place] [address] 12 Lead EKG 04/03/25 0005 MR#: [id number] Acct: [id number] Name: ENOC ARMANDO Rep #:[id number] : 1945 79 From: Barbie black MD Attending Dr: Dr. Jose Moore MD Status: ADM IN Ordering Dr: John Brandon DO Date: 04/03/25 Location: [facility] Sex: M C Admitted: 04/03/25 Test Reason [...] Confirmed by VERONICA URIBE, MINERVA ([id number]), editor managing newspaper BLANCO BOCANEGRA ([id number]) on04/09/2025 7:03:07 AM Referred By: Confirmed By: MINERVA MARTIN MD 04/09/25 0703 Date _ Barbie Martin MD CC: Dr. Ryley Jeter MD; Dr. Jose Moore MD; Dr. John Brandon DO ~ Signed [facility] Work Phone: EKG study [facility] [address] [place] [address] 12 Lead EKG 04/05/25 1204 MR#: [id number] Acct: [id number] Name: ENOC ARMANDO Rep #:[id number] : 1945 79 From: Barbie black MD Attending Dr: Dr. Jose Moore MD Status: ADM IN Ordering Dr: Grace Arnold MD Date: 04/05/25 Location: [facility] Sex: M C Admitted: 04/03/25 Test Reason [...] IS UNCONFIRMED Confirmed by VERONICA URIBE, MINERVA ([id number]), editor managing newspaper BLANCO BOCANEGRA ([id number]) on04/09/2025 6:57:50 AM Referred By: FLORENTINO Confirmed By: MINERVA MARTIN MD 04/09/25 0657 Date _ Barbie Martin MD CC: Dr. Ryley Jeter MD; Dr. Grace Arnold MD; Dr. Jose Moore MD ~ Signed [facility] Work Phone: Gram Stainon 04-09-2025 GS Acceptable Specimen? Yes (<25 Epithelial cells per/lpf) Gram Stain 2+ Yeast Like Organisms 2+ Gram positive cocci 1+ Gram positive rods Normal [facility] Comment on above: Performed By: #### M 100.2400, M100.2000 ####[facility] [address] [place], [place], [address] Stool Occult Blood iFOBon STOB Positive Normal [facility] Comment on above: Performed By: #### M 100.7900 ####[facility] [address] [facility] [place], [place], [address] Stool gastrointestinal hemog lobin detection by immunologic methodOrdered By: Jose Moore on 04-09-2025 Lower GI hemoglobin IA Ql (Stl) Positive Abnormal [facility] BRCon 04-08-2025 RC Normal Neg [facility] Comment on above: Result Comment: [id number] AP RC TRANSFUSED 04/08/25 1032 Performed By: #### B RC, BTS ####[facility] [address] [place], [address] Basic Metabolic Profile (BMP )on 04-08-2025 BUN/CRE 20.8 RATIO High 10-20 [facility] Comment on above: Performed By: #### L 500.2500 ####[facility] [address] [place], [address] Calcium [Mass/Vol] 8.5 mg/dL Normal 7.6-11.0 [facility] Comment on above: Performed By: #### L 500.2500 ####[facility] [address] [place], [address] Chloride [Moles/Vol] 100 mmol/L Normal 98-108 [facility] Comment on above: Performed By: #### L 500.2500 ####[facility] [address] [place], [address] CO2 [Moles/Vol] 20.3 mmol/L Low 21.0-32.0 [facility] Comment on above: Performed By: #### L 500.2500 ####[facility] [address] [place], [address] Creatinine [Mass/Vol] 2.97 mg/dL High 0.70-1.20 [facility] Comment on above: Performed By: #### L 500.2500 ####[facility] [address] [place], [address] ECRCL 16.83 ml/min Low 50-250 [facility] Comment on above: Performed By: #### L 500.2500 ####[facility] [address] [place], [address] GAP 16 High 5-15 [facility] Comment on above: Performed By: #### L 500.2500 ####[facility] [address] [place], [address] GFR/1.73 sq M.predicted among non-blacks MDRD (S/P/Bld) [Vol rate/Area] 20 mL/min/{1.73_m2} Low >60 [facility] Comment on above: Result Comment: mL/m in/1.73m2 CKD-EPI Creatinine Equation (2020) Performed By: #### L 500.2500 ####[facility] [address] [place], [address] Glucose [Mass/Vol] 395 mg/dL High 70-99 [facility] Comment on above: Performed By: #### L 500.2500 ####[facility] [address] [place], [address] Potassium [Moles/Vol] 4.3 mmol/L Normal 3.3-5.1 [facility] Comment on above: Performed By: #### L 500.2500 ####[facility] [address] [place], [address] Sodium [Moles/Vol] 136 mmol/L Normal 133-145 [facility] Comment on above: Performed By: #### L 500.2500 ####[facility] [address] [place], [address] Urea nitrogen [Mass/Vol] 62 mg/dL High 4-19 [facility] Comment on above: Performed By: #### L 500.2500 ####[facility] [address] [place], [address] Bedside Glucoseon 04-08-2025 FINGERSTICK GLU 415 mg/dL High 74-106 [facility] Comment on above: Result Comment: ADITI ESCOBEDO OF PATIENT CARE PER NURSING PROTOCOL Performed By: #### L 501.080 ####[facility] [address] [place], [address] FINGERSTICK GLU 420 mg/dL High 74-106 [facility] Comment on above: Result Comment: ADITI GEMENT OF PATIENT CARE PER NURSING PROTOCOL Performed By: #### L 501.080 ####[facility] [address] [place], [address] FINGERSTICK GLU 361 mg/dL High 74-106 [facility] Comment on above: Result Comment: ADITI GEMENT OF PATIENT CARE PER NURSING PROTOCOL Performed By: #### L 501.080 ####[facility] [address] [place], [address] CBC W/Diff, Automatedon 06-0 8-2025 Absolute Lymph 0.63 X10 3/uL Low 0.83-4.51 [facility] Comment on above: Performed By: #### L 100.0100 ####[facility] [address] [place], [address] Absolute Neut 7.6 X10 3/uL Normal 2.0-7.7 [facility] Comment on above: Performed By: #### L 100.0100 ####[facility] [address] [place], [address] Basophils/100 WBC (Bld) 0.0 % Normal 0-1 [facility] Comment on above: Performed By: #### L 100.0100 ####[facility] [address] [place], [address] Eosinophils/100 WBC (Bld) 0.0 % Normal 0-5 [facility] Comment on above: Performed By: #### L 100.0100 ####[facility] [address] [place], [address] Erythrocyte distribution width (RBC) [Ratio] 13.5 % Normal 11.6-14.6 [facility] Comment on above: Performed By: #### L 100.0100 ####[facility] [address] [place], [address] Hematocrit (Bld) [Volume fraction] 21.5 % Low 40-54 [facility] Comment on above: Performed By: #### L 100.0100 ####[facility] [address] [place], [address] Hemoglobin (Bld) [Mass/Vol] 6.9 g/dL Low 13.0-16.5 [facility] Comment on above: Performed By: #### L 100.0100 ####[facility] [address] [place], [address] IG% 0.500 Normal 0.0-0.9 [facility] Comment on above: Result Comment: IG% - Immature Granulocytes (promyelocytes, myelocytes andmetamyelocytes) > 1% indicates that a LEFT SHIFT is Present. Performed By: #### L 100.0100 ####[facility] [address] [place], [address] Lymphocytes/100 WBC (Bld) 7.3 % Low 19-41 [facility] Comment on above: Performed By: #### L 100.0100 ####[facility] [address] [place], [address] MCH (RBC) [Entitic mass] 29.5 pg Normal 27.0-32.0 [facility] Comment on above: Performed By: #### L 100.0100 ####[facility] [address] [place], [address] MCHC (RBC) [Mass/Vol] 32.1 g/dL Normal 32-36 [facility] Comment on above: Performed By: #### L 100.0100 ####[facility] [address] [place], [address] MCV (RBC) [Entitic vol] 91.9 fL Normal 80-94 [facility] Comment on above: Performed By: #### L 100.0100 ####[facility] [address] [place], [address] Monocytes/100 WBC (Bld) 4.2 % Normal 0-10 [facility] Comment on above: Performed By: #### L 100.0100 ####[facility] [address] [place], [address] Neutrophils/100 WBC (Bld) 88.0 % High 47-70 [facility] Comment on above: Performed By: #### L 100.0100 ####[facility] [address] [place], [address] Nucleated RBC (Bld) [#/Vol] 0 10*3/uL Normal 0-5 [facility] Comment on above: Performed By: #### L 100.0100 ####[facility] [address] [place], [address] Platelet mean volume (Bld) [Entitic vol] 12.5 fL High 6.2-12.0 [facility] Comment on above: Performed By: #### L 100.0100 ####[facility] [address] [place], [address] Platelets (Bld) [#/Vol] 176 10*3/uL Normal 150-450 [facility] Comment on above: Performed By: #### L 100.0100 ####[facility] [address] [place], [address] RBC (Bld) [#/Vol] 2.34 10*6/uL Low 4.6-6.2 [facility] Comment on above: Performed By: #### L 100.0100 ####[facility] [address] [place], [address] RDW SD 44.2 fl High 35.1-43.9 [facility] Comment on above: Performed By: #### L 100.0100 ####[facility] [address] [place], [address] WBC (Bld) [#/Vol] 8.6 10*3/uL Normal 4.4-11.0 [facility] Comment on above: Performed By: #### L 100.0100 ####[facility] [address] [place], [address] Culture, Blood (WB)on 2024 CUB No growth in 5 days. Normal [facility] Comment on above: Performed By: #### L 503.6005, M200.1000 ####[facility] [address] [place], [address] Glucoseon 04-08-2025 Glucose [Mass/Vol] 528 mg/dL Invalid Interpretation Code 70-99 [facility] Comment on above: Result Comment: Crit ical Result(s) Called at 2220: by:??NBURNS TO EAFFOLTERResults read back by same. Performed By: #### L 501.0100 ####[facility] [address] [place], [address] Respiratory Cultureon 2024 RESPC Mixed normal respiratory kyler. No Streptococcus pneumoniae, beta-hemolytic Streptococcus or Staphylococcus aureus isolated. Normal [facility] Comment on above: Performed By: #### M 100.2400, M100.2000 ####[facility] [address] [place], [address] Type AND Screenon 04-08-2025 ABO and Rh group Nom (Bld) Blood group A Rh(D) positive [facility] Comment on above: Order Comment: CMV N EG? NNumber of units to transfuse: 1Reason for Ordering Blood: AcuteAre the blood/blood products to be transfused? YIs the patient having/had surgery? NWhen Ilir Performed By: #### B RC, BTS ####[facility] [address] [place], [address] Ab SCREEN GEL Negative Normal [facility] Comment on above: Order Comment: CMV N EG? NNumber of units to transfuse: 1Reason for Ordering Blood: AcuteAre the blood/blood products to be transfused? YIs the patient having/had surgery? NWart Hazel Performed By: #### B HOUSTON BTS ####[facility] [address] [place], [address] Basic Metabolic Profile (BMP )on 04-07-2025 BUN/CRE 22.1 RATIO High 10-20 [facility] Comment on above: Performed By: #### L 500.2500 ####[facility] [address] [place], [address] Calcium [Mass/Vol] 8.2 mg/dL Normal 7.6-11.0 [facility] Comment on above: Performed By: #### L 500.2500 ####[facility] [address] [place], [address] Chloride [Moles/Vol] 99 mmol/L Normal 98-108 [facility] Comment on above: Performed By: #### L 500.2500 ####[facility] [address] [place], [address] CO2 [Moles/Vol] 21.3 mmol/L Normal 21.0-32.0 [facility] Comment on above: Performed By: #### L 500.2500 ####[facility] [address] [place], [address] Creatinine [Mass/Vol] 3.61 mg/dL High 0.70-1.20 [facility] Comment on above: Performed By: #### L 500.2500 ####[facility] [address] [place], [address] ECRCL 14.50 ml/min Low 50-250 [facility] Comment on above: Performed By: #### L 500.2500 ####[facility] [address] [place], [address] GAP 16 High 5-15 [facility] Comment on above: Performed By: #### L 500.2500 ####[facility] [address] [place], [address] GFR/1.73 sq M.predicted among non-blacks MDRD (S/P/Bld) [Vol rate/Area] 16 mL/min/{1.73_m2} Low >60 [facility] Comment on above: Result Comment: mL/m in/1.73m2 CKD-EPI Creatinine Equation (2020) Performed By: #### L 500.2500 ####[facility] [address] [place], [address] Glucose [Mass/Vol] 423 mg/dL High 70-99 [facility] Comment on above: Performed By: #### L 500.2500 ####[facility] [address] [place], [address] Potassium [Moles/Vol] 4.3 mmol/L Normal 3.3-5.1 [facility] Comment on above: Performed By: #### L 500.2500 ####[facility] [address] [place], [address] Sodium [Moles/Vol] 137 mmol/L Normal 133-145 [facility] Comment on above: Performed By: #### L 500.2500 ####[facility] [address] [place], [address] Urea nitrogen [Mass/Vol] 80 mg/dL High 4-19 [facility] Comment on above: Performed By: #### L 500.2500 ####[facility] [address] [place], [address] Bedside Glucoseon 04-07-2025 FINGERSTICK GLU 402 mg/dL High 74-106 [facility] Comment on above: Result Comment: ADITI GEMENT OF PATIENT CARE PER NURSING PROTOCOL Performed By: #### L 501.080 ####[facility] [address] [place], [address] FINGERSTICK GLU 330 mg/dL High [address] [place] [address] Comment on above: Result Comment: ADITI GEMENT OF PATIENT CARE PER NURSING PROTOCOL Performed By: #### L 501.080 ####[facility] [address] [place], [address] FINGERSTICK GLU 333 mg/dL High [address] [place] [address] Comment on above: Result Comment: ADITI GEMENT OF PATIENT CARE PER NURSING PROTOCOL Performed By: #### L 501.080 ####[facility] [address] [place], [address] FINGERSTICK GLU 392 mg/dL High -[address] [place] [address] Comment on above: Result Comment: ADITI GEMENT OF PATIENT CARE PER NURSING PROTOCOL Performed By: #### L 501.080 ####[facility] [address] [place], [address] FINGERSTICK GLU 280 mg/dL High [address] [place] [address] Comment on above: Result Comment: ADITI GEMENT OF PATIENT CARE PER NURSING PROTOCOL Performed By: #### L 501.080 ####[facility] [address] [place], [address] CBC W/Diff, Automatedon 06-0 -2024 Absolute Lymph 1.30 X10 3/uL Normal 0.83-4.51 [facility] Comment on above: Performed By: #### L 100.0100 ####[facility] [address] [place], [address] Absolute Neut 8.2 X10 3/uL High 2.0-7.7 [facility] Comment on above: Performed By: #### L 100.0100 ####[facility] [address] [place], [address] Basophils/100 WBC (Bld) 0.0 % Normal 0-1 [facility] Comment on above: Performed By: #### L 100.0100 ####[facility] [address] [place], [address] Eosinophils/100 WBC (Bld) 0.1 % Normal 0-5 [facility] Comment on above: Performed By: #### L 100.0100 ####[facility] [address] [place], [address] Erythrocyte distribution width (RBC) [Ratio] 13.7 % Normal 11.6-14.6 [facility] Comment on above: Performed By: #### L 100.0100 ####[facility] [address] [place], [address] Hematocrit (Bld) [Volume fraction] 23.1 % Low 40-54 [facility] Comment on above: Performed By: #### L 100.0100 ####[facility] [address] [place], [address] Hemoglobin (Bld) [Mass/Vol] 7.7 g/dL Low 13.0-16.5 [facility] Comment on above: Performed By: #### L 100.0100 ####[facility] [address] [place], [address] IG% 0.300 Normal 0.0-0.9 [facility] Comment on above: Result Comment: IG% - Immature Granulocytes (promyelocytes, myelocytes andmetamyelocytes) > 1% indicates that a LEFT SHIFT is Present. Performed By: #### L 100.0100 ####[facility] [address] [place], [address] Lymphocytes/100 WBC (Bld) 12.6 % Low 19-41 [facility] Comment on above: Performed By: #### L 100.0100 ####[facility] [address] [place], [address] MCH (RBC) [Entitic mass] 30.8 pg Normal 27.0-32.0 [facility] Comment on above: Performed By: #### L 100.0100 ####[facility] [address] [place], [address] MCHC (RBC) [Mass/Vol] 33.3 g/dL Normal 32-36 [facility] [facility] Comment on above: Performed By: #### L 100.0100 ####[facility] [address] [place], [address] MCV (RBC) [Entitic vol] 92.4 fL Normal 80-94 [facility] Comment on above: Performed By: #### L 100.0100 ####[facility] [address] [place], [address] Monocytes/100 WBC (Bld) 8.0 % Normal 0-10 [facility] Comment on above: Performed By: #### L 100.0100 ####[facility] [address] [place], [address] Neutrophils/100 WBC (Bld) 79.0 % High 47-70 [facility] Comment on above: Performed By: #### L 100.0100 ####[facility] [address] [place], [address] Nucleated RBC (Bld) [#/Vol] 0 10*3/uL Normal 0-5 [facility] Comment on above: Performed By: #### L 100.0100 ####[facility] [address] [place], [address] Platelet mean volume (Bld) [Entitic vol] 12.3 fL High 6.2-12.0 [facility] Comment on above: Performed By: #### L 100.0100 ####[facility] [address] [place], [address] Platelets (Bld) [#/Vol] 191 10*3/uL Normal 150-450 [facility] Comment on above: Performed By: #### L 100.0100 ####[facility] [address] [place], [address] RBC (Bld) [#/Vol] 2.50 10*6/uL Low 4.6-6.2 [facility] Comment on above: Performed By: #### L 100.0100 ####[facility] [address] [place], [address] RDW SD 46.1 fl High 35.1-43.9 [facility] Comment on above: Performed By: #### L 100.0100 ####[facility] [address] [place], [address] WBC (Bld) [#/Vol] 10.4 10*3/uL Normal 4.4-11.0 [facility] Comment on above: Performed By: #### L 100.0100 ####[facility] [address] [place], [address] Ferritinon 04-07-2025 Ferritin [Mass/Vol] 69 ng/mL Normal 37-417 [facility] Comment on above: Performed By: #### L 503.6030, L503.6550 ####[facility] [address] [place], [address] Gram stainOrdered By: Dyana Hwang on 04-07-2025 Microscopic observation Gram stain Nom (Unsp spec) [facility] Iron measurement (mass/mass) Ordered By: Jose Moore on 04-07-2025 Iron (Unsp spec) [Mass/Mass] 27 ug/dL Low 65-175 [facility] Iron+Iron Binding Capacityon 04-07-2025 Iron [Mass/Vol] 27 ug/dL Low 65-175 [facility] Comment on above: Performed By: #### L 503.6030, L503.6550 ####[facility] [address] [place], [address] IRON SATURATION 10.0 Normal 9-55 [facility] Comment on above: Performed By: #### L 503.6030, L503.6550 ####[facility] [address] [place], [address] TIBC 270 ug/dL Normal 250-450 [facility] Comment on above: Performed By: #### L 503.6030, L503.6550 ####[facility] [address] [place], [address] UIBC 243 ug/dL Normal 228-428 [facility] Comment on above: Performed By: #### L 503.6030, L503.6550 ####[facility] [address] [place], [address] Microbial respiratory cultur eOrdered By: Dyana Hwang on 04-07-2025 Microorganism identified Cx Nom (Unsp spec) or Staphylococcus aureus isolated. [facility] No Panel InformationOrdered By: Jose Moore on 04-07-2025 Unsaturated Iron Binding Capacity 243 ug/dL 228-428 [facility] Serum or plasma ferritin heriberto surement (mass/volume)Ordered By: Jose Moore on 04-07-2025 Ferritin [Mass/Vol] 69 ng/mL 37-417 [facility] Serum or plasma iron saturat ion measurement (mass fraction)Ordered By: Jose Moore on 04-07-2025 Iron saturation [Mass fraction] 10.0 % 9- [facility] Basic Metabolic Profile (BMP )on 04-06-2025 BUN/CRE 21.8 RATIO High 10-20 [facility] Comment on above: Performed By: #### L 500.2500 ####[facility] [address] [place], [address] Calcium [Mass/Vol] 8.3 mg/dL Normal 7.6-11.0 [facility] Comment on above: Performed By: #### L 500.2500 ####[facility] [address] [place], [address] Chloride [Moles/Vol] 100 mmol/L Normal 98-108 [facility] Comment on above: Performed By: #### L 500.2500 ####[facility] [address] [place], [address] CO2 [Moles/Vol] 21.0 mmol/L Normal 21.0-32.0 [facility] Comment on above: Performed By: #### L 500.2500 ####[facility] [address] [place], [address] Creatinine [Mass/Vol] 4.73 mg/dL High 0.70-1.20 [facility] Comment on above: Performed By: #### L 500.2500 ####[facility] [address] [place], [address] ECRCL 11.24 ml/min Low 50-250 [facility] Comment on above: Performed By: #### L 500.2500 ####[facility] [address] [place], [address] GAP 18 High 5-15 [facility] Comment on above: Performed By: #### L 500.2500 ####[facility] [address] [place], [address] GFR/1.73 sq M.predicted among non-blacks MDRD (S/P/Bld) [Vol rate/Area] 12 mL/min/{1.73_m2} Low >60 [facility] Comment on above: Result Comment: mL/m in/1.73m2 CKD-EPI Creatinine Equation (2020) Performed By: #### L 500.2500 ####[facility] [address] [place], [address] Glucose [Mass/Vol] 233 mg/dL High 70-99 [facility] Comment on above: Performed By: #### L 500.2500 ####[facility] [address] [place], [address] Potassium [Moles/Vol] 4.2 mmol/L Normal 3.3-5.1 [facility] Comment on above: Performed By: #### L 500.2500 ####[facility] [address] [place], [address] Sodium [Moles/Vol] 139 mmol/L Normal 133-145 [facility] Comment on above: Performed By: #### L 500.2500 ####[facility] [address] [place], [address] Urea nitrogen [Mass/Vol] 103 mg/dL Invalid Interpretation Code 4-19 [facility] Comment on above: Result Comment: Crit ical Result(s) Called at: by: 04/06/2025-09:27 Neal to Andressa Khanna.??Results read back by same. Performed By: #### L 500.2500 ####[facility] [address] [place], [address] Bedside Glucoseon 04-06-2025 FINGERSTICK GLU 269 mg/dL High 74-106 [facility] Comment on above: Result Comment: ADITI GEMENT OF PATIENT CARE PER NURSING PROTOCOL Performed By: #### L 501.080 ####[facility] [address] [place], [address] FINGERSTICK GLU 225 mg/dL High 74-106 [facility] Comment on above: Result Comment: ADITI GEMENT OF PATIENT CARE PER NURSING PROTOCOL Performed By: #### L 501.080 ####[facility] [address] [place], [address] FINGERSTICK GLU 281 mg/dL High 74-106 [facility] Comment on above: Result Comment: ADITI ESCOBEDO OF PATIENT CARE PER NURSING PROTOCOL Performed By: #### L 501.080 ####[facility] [address] [place], [address] CBC W/Diff, Automatedon 06-0 6-5 Absolute Lymph 1.34 X10 3/uL Normal 0.83-4.51 [facility] Comment on above: Performed By: #### L 100.0100 ####[facility] [address] [place], [address] Absolute Neut 12.3 X10 3/uL High 2.0-7.7 [facility] Comment on above: Performed By: #### L 100.0100 ####[facility] [address] [place], [address] Basophils/100 WBC (Bld) 0.1 % Normal 0-1 [facility] Comment on above: Performed By: #### L 100.0100 ####[facility] [address] [place], [address] Eosinophils/100 WBC (Bld) 0.0 % Normal 0-5 [facility] Comment on above: Performed By: #### L 100.0100 ####[facility] [address] [place], [address] Erythrocyte distribution width (RBC) [Ratio] 13.8 % Normal 11.6-14.6 [facility] Comment on above: Performed By: #### L 100.0100 ####[facility] [address] [place], [address] Hematocrit (Bld) [Volume fraction] 23.6 % Low 40-54 [facility] Comment on above: Performed By: #### L 100.0100 ####[facility] [address] [place], [address] Hemoglobin (Bld) [Mass/Vol] 7.9 g/dL Low 13.0-16.5 [facility] Comment on above: Performed By: #### L 100.0100 ####[facility] [address] [place], [address] IG% 0.500 Normal 0.0-0.9 [facility] Comment on above: Result Comment: IG% - Immature Granulocytes (promyelocytes, myelocytes andmetamyelocytes) > 1% indicates that a LEFT SHIFT is Present. Performed By: #### L 100.0100 ####[facility] [address] [place], [address] Lymphocytes/100 WBC (Bld) 9.1 % Low 19-41 [facility] Comment on above: Performed By: #### L 100.0100 ####[facility] [address] [place], [address] MCH (RBC) [Entitic mass] 30.7 pg Normal 27.0-32.0 [facility] Comment on above: Performed By: #### L 100.0100 ####[facility] [address] [place], [address] MCHC (RBC) [Mass/Vol] 33.5 g/dL Normal 32-36 [facility] Comment on above: Performed By: #### L 100.0100 ####[facility] [address] [place], [address] MCV (RBC) [Entitic vol] 91.8 fL Normal 80-94 [facility] Comment on above: Performed By: #### L 100.0100 ####[facility] [address] [place], [address] Monocytes/100 WBC (Bld) 7.0 % Normal 0-10 [facility] Comment on above: Performed By: #### L 100.0100 ####[facility] [address] [place], [address] Neutrophils/100 WBC (Bld) 83.3 % High 47-70 [facility] Comment on above: Performed By: #### L 100.0100 ####[facility] [address] [place], [address] Nucleated RBC (Bld) [#/Vol] 0 10*3/uL Normal 0-5 [facility] Comment on above: Performed By: #### L 100.0100 ####[facility] [address] [place], [address] Platelet mean volume (Bld) [Entitic vol] 11.9 fL Normal 6.2-12.0 [facility] Comment on above: Performed By: #### L 100.0100 ####[facility] [address] [place], [address] Platelets (Bld) [#/Vol] 222 10*3/uL Normal 150-450 [facility] Comment on above: Performed By: #### L 100.0100 ####[facility] [address] [place], [address] RBC (Bld) [#/Vol] 2.57 10*6/uL Low 4.6-6.2 [facility] Comment on above: Performed By: #### L 100.0100 ####[facility] [address] [place], [address] RDW SD 46.2 fl High 35.1-43.9 [facility] Comment on above: Performed By: #### L 100.0100 ####[facility] [address] [place], [address] WBC (Bld) [#/Vol] 14.8 10*3/uL High 4.4-11.0 [facility] Comment on above: Performed By: #### L 100.0100 ####[facility] [address] [place], [place], [address] Magnesiumon 04-06-2025 Magnesium [Mass/Vol] 2.8 mg/dL High 1.5-2.2 [facility] Comment on above: Performed By: #### L 501.5200, L501.2300 ####[facility] [address] [place], [address] Magnesium measurement (mass/ volume)Ordered By: Barbie Martin on 04-06-2025 Magnesium (Unsp spec) [Mass/Vol] 2.8 mg/dL High 1.5-2.2 [facility] Phosphoruson 04-06-2025 Phosphate [Mass/Vol] 7.1 mg/dL High 2.7-4.5 [facility] Comment on above: Performed By: #### L 501.5200, L501.2300 ####[facility] [address] [place], [place], [address] Serum classic neutrophil cyt oplasmic antibody assay (units/volume)Ordered By: Denisha Thompson on 04-06-2025 Neutrophil cytoplasmic Ab.classic Qn (S) <1:20 titer Neg:<1:20 [facility] Serum glomerular basement me mbrane antibody assay (units/volume)Ordered By: Denisha Thompson on 04-06-2025 Glomerular basement membrane Ab Qn (S) < 0.2 units 0.0-0.9 [facility] Comment on above: Performed at: [address] [id number] Director: Mignon Taylor MD, Phone: [phone] Serum perinuclear neutrophil cytoplasmic antibody titer by immunofluorescenceOrdered By: Denisha Thompson on 04-06-2025 Neutrophil cytoplasmic Ab.perinuclear IF (S) [Titer] <1:20 titer Neg:<1:20 [facility] Comment on above: The presence of posi [...] only by EIA. Ref. AM J Clin Cobrbi4168;111:507-513. 12 Lead EKGon 04-05-2025 12 Lead EKG Normal [facility] Basic Metabolic Profile (BMP )on 04-05-2025 BUN/CRE 20.8 RATIO High 10-20 [facility] Comment on above: Performed By: #### L 500.2500 ####[facility] [address] [place] [address] Calcium [Mass/Vol] 8.9 mg/dL Normal 7.6-11.0 [facility] Comment on above: Performed By: #### L 500.2500 ####[facility] [address] [place] [address] Chloride [Moles/Vol] 102 mmol/L Normal 98-108 [facility] Comment on above: Performed By: #### L 500.2500 ####[facility] [address] [facility] [address] CO2 [Moles/Vol] 15.6 mmol/L Low 21.0-32.0 [facility] Comment on above: Performed By: #### L 500.2500 ####[facility] [address] [place], [address] Creatinine [Mass/Vol] 4.77 mg/dL High 0.70-1.20 [facility] Comment on above: Performed By: #### L 500.2500 ####[facility] [address] [place] [address] ECRCL 10.67 ml/min Low 50-250 [facility] Comment on above: Performed By: #### L 500.2500 ####[facility] [address] [place], [address] GAP 19 High 5-15 [facility] Comment on above: Performed By: #### L 500.2500 ####[facility] [address] [place], [address] GFR/1.73 sq M.predicted among non-blacks MDRD (S/P/Bld) [Vol rate/Area] 12 mL/min/{1.73_m2} Low >60 [facility] Comment on above: Result Comment: mL/m in/1.73m2 CKD-EPI Creatinine Equation (2020) Performed By: #### L 500.2500 ####[facility] [address] [place], [address] Glucose [Mass/Vol] 205 mg/dL High 70-99 [facility] Comment on above: Performed By: #### L 500.2500 ####[facility] [address] [place], [address] Potassium [Moles/Vol] 5.7 mmol/L High 3.3-5.1 [facility] Comment on above: Result Comment: Hemo lysis present, Results??could be affected.?? Performed By: #### L 500.2500 ####[facility] [address] [place], [address] Sodium [Moles/Vol] 137 mmol/L Normal 133-145 [facility] Comment on above: Performed By: #### L 500.2500 ####[facility] [address] [place], [address] Urea nitrogen [Mass/Vol] 99 mg/dL High 4-19 [facility] Comment on above: Performed By: #### L 500.2500 ####[facility] [address] [place], [address] BUN/CRE 20.5 RATIO High 10-20 [facility] Comment on above: Performed By: #### L 500.2500 ####[facility] [address] [place], [address] Calcium [Mass/Vol] 8.1 mg/dL Normal 7.6-11.0 [facility] Comment on above: Performed By: #### L 500.2500 ####[facility] [address] [place], [address] Chloride [Moles/Vol] 102 mmol/L Normal 98-108 [facility] Comment on above: Performed By: #### L 500.2500 ####[facility] [address] [place], [address] CO2 [Moles/Vol] 15.8 mmol/L Low 21.0-32.0 [facility] Comment on above: Performed By: #### L 500.2500 ####[facility] [address] [place], [address] Creatinine [Mass/Vol] 4.68 mg/dL High 0.70-1.20 [facility] Comment on above: Performed By: #### L 500.2500 ####[facility] [address] [place], [address] ECRCL 10.87 ml/min Low 50-250 [facility] Comment on above: Performed By: #### L 500.2500 ####[facility] [address] [place], [address] GAP 18 High 5-15 [facility] Comment on above: Performed By: #### L 500.2500 ####[facility] [address] [place], [address] GFR/1.73 sq M.predicted among non-blacks MDRD (S/P/Bld) [Vol rate/Area] 12 mL/min/{1.73_m2} Low >60 [facility] Comment on above: Result Comment: mL/m in/1.73m2 CKD-EPI Creatinine Equation (2020) Performed By: #### L 500.2500 ####[facility] [address] [place], [address] Glucose [Mass/Vol] 223 mg/dL High 70-99 [facility] Comment on above: Performed By: #### L 500.2500 ####[facility] [address] [place], [address] Potassium [Moles/Vol] 6.3 mmol/L Invalid Interpretation Code 3.3-5.1 [facility] Comment on above: Result Comment: Crit ical Result(s) Called to: STANTON PARRA (U) by:RONEN??Results read back by same. Performed By: #### L 500.2500 ####[facility] [address] [place], [address] Sodium [Moles/Vol] 136 mmol/L Normal 133-145 [facility] Comment on above: Performed By: #### L 500.2500 ####[facility] [address] [place], [address] Urea nitrogen [Mass/Vol] 96 mg/dL High 4-19 [facility] Comment on above: Performed By: #### L 500.2500 ####[facility] [address] [place], [address] Bedside Glucoseon 04-05-2025 FINGERSTICK GLU 282 mg/dL High 74-106 [facility] Comment on above: Result Comment: ADITI GEMENT OF PATIENT CARE PER NURSING PROTOCOL Performed By: #### L 501.080 ####[facility] [address] [place], [address] FINGERSTICK GLU 165 mg/dL High 74-106 [facility] Comment on above: Result Comment: ADITI GEMENT OF PATIENT CARE PER NURSING PROTOCOL Performed By: #### L 501.080 ####[facility] [address] [place], [address] FINGERSTICK GLU 239 mg/dL High 74-106 [facility] Comment on above: Result Comment: ADITI GEMENT OF PATIENT CARE PER NURSING PROTOCOL Performed By: #### L 501.080 ####[facility] [address] [place], [address] FINGERSTICK GLU 226 mg/dL High 74-106 [facility] Comment on above: Result Comment: ADITI GEMENT OF PATIENT CARE PER NURSING PROTOCOL Performed By: #### L 501.080 ####[facility] [address] [place], [address] FINGERSTICK GLU 263 mg/dL High 74-106 [facility] Comment on above: Result Comment: ADITI GEMENT OF PATIENT CARE PER NURSING PROTOCOL Performed By: #### L 501.080 ####[facility] [address] [place], [address] FINGERSTICK GLU 253 mg/dL High -106 [facility] Comment on above: Result Comment: ADITI GEMENT OF PATIENT CARE PER NURSING PROTOCOL Performed By: #### L 501.080 ####[facility] [address] [place], [address] Bilirubin Test strip Ql (U)O rdered By: Denisha Thompson on 04-05-2025 Bilirubin Ql (U) 1 mg/dL High Negative [facility] Comment on above: COLOR OF URINE MAY A FFECT DIPSTICK RESULTS. Blood manual differential co mment interpretation (narrative result)Ordered By: Grace Arnold on 04-05-2025 Manual differential comment Mumtaz (Bld) [Interp] SCANNED [facility] CBC W/Diff, Automatedon SMEAR COMMENT SCANNED Normal [facility] Comment on above: Performed By: #### L 100.0100 ####[facility] [address] [place], [address] CXR for Line Placementon CXR for Line Placement Normal [facility] Consultation - Surgicalon Consultation - Surgical Normal [facility] Ketones Test strip Ql (U)Ord ered By: Denisha Thompson on 04-05-2025 Ketones Ql (U) Negative Negative [facility] L499.0042on 04-05-2025 Trop T High Sen 2263 ng/L Invalid Interpretation Code <=22 [facility] Comment on above: Result Comment: Crit ical Result(s) Called at: 0040 by: BJ??Results read back by same. Performed By: #### L 499.0042 ####[facility] [address] [place], [place], [address] L499.0043on 04-05-2025 Trop T High Sen 2425 ng/L Invalid Interpretation Code <=22 [facility] Comment on above: Result Comment: Crit ical Result(s) Called at: 0336 by:??DASIA ALICIA Results read back by same. Performed By: #### L 499.0043 ####[facility] [address] [place], [place], [address] Microscopic analysis of urin e for red blood cells (RBC)Ordered By: Denisha Thompson on 04-05-2025 Microscopic analysis of urine for red blood cells (RBC) > 100 SEEN /hpf 0-5 [facility] Mucus LM Ql (Urine sed)Order ed By: Denisha Thompson on 04-05-2025 Mucus Ql (Urine sed) 0 SEEN /hpf [facility] Nitrite Test strip Ql (U)Ord ered By: Denisha Thompson on 04-05-2025 Nitrite Ql (U) Negative Negative [facility] Operative Reporton Operative Report Normal [facility] Protein Test strip Ql (U)Ord ered By: Denisha Thompson on 04-05-2025 Protein Ql (U) 100 mg/dl High Negative [facility] Squamous epithelial cells de tection in urine sediment by light microscopyOrdered By: Denisha Thompson on 04-05-2025 Epithelial cells.squamous LM Ql (Urine sed) 0 SEEN /hpf 0-5 [facility] Troponin T.cardiac [Mass/vol ume] in Serum or Plasma by High sensitivity methodOrdered By: Breezy Campbell on 04-05-2025 Troponin T.cardiac High sensitivity method [Mass/Vol] 2425 ng/L High <22 [facility] Comment on above: Critical Result(s) C alled at: 0336 by: DASIA MOYA TO ANA ALICIA Results read back by same. Urinalysis, Completeon 04-05 WBC 5-10 SEEN Normal 0-5 [facility] Comment on above: Order Comment: HATTIE TER SPECIMEN Performed By: #### L 400.0001 ####[facility] [address] [place], [address] RBC > 100 SEEN Normal 0-5 [facility] Comment on above: Order Comment: HATTIE TER SPECIMEN Performed By: #### L 400.0001 ####[facility] [address] [place], [address] BACTERIA 0 SEEN Normal None Seen [facility] Comment on above: Order Comment: HATTIE TER SPECIMEN Performed By: #### L 400.0001 ####[facility] [address] [place], [address] EPI,SQUAMOUS 0 SEEN Normal 0-5 [facility] Comment on above: Order Comment: HATTIE TER SPECIMEN Performed By: #### L 400.0001 ####[facility] [address] [place], [address] Mucus Ql (Urine sed) 0 SEEN Normal [facility] Comment on above: Order Comment: HATTIE TER SPECIMEN Performed By: #### L 400.0001 ####[facility] [address] [place], [address] Urine clarityOrdered By: Zelalem Thompson on 04-05-2025 Clarity (U) Sl. Cloudy Clear [facility] Urine color determinationOrd ered By: Denisha Thompson on 04-05-2025 Color (U) Yellow Yellow [facility] Urine glucose detectionOrder ed By: Denisha Thompson on 04-05-2025 Glucose Ql (U) Normal mg/dl Normal [facility] Urine leukocyte esterase det ection by dipstickOrdered By: Denisha Thompson on 04-05-2025 Leukocyte esterase Test strip Ql (U) 500 /ul High Negative [facility] Urine pHOrdered By: Almita Thompson on 04-05-2025 pH (U) 5.0 [pH] 5.0 - 8.0 [facility] Urine sediment bacteria coun t by microscopy (number/high power field)Ordered By: Denisha Thompson on 04-05-2025 Bacteria LM.HPF (Urine sed) [#/Area] 0 /[HPF] None Seen [facility] Urine specific gravity measu rementOrdered By: Denisha Thompson on 04-05-2025 Specific gravity (U) [Rel density] 1.020 1.002-1.030 [facility] Urine urobilinogen measureme ntOrdered By: Denisha Thompson on 04-05-2025 Urobilinogen Ql (U) Normal mg/dl Normal [facility] White blood cell countOrdere d By: Denisha Thompson on 04-05-2025 White blood cell count 5-10 SEEN /hpf 0-5 [facility] 12 Lead EKGon 04-04-2025 12 Lead EKG Normal [facility] 12 Lead EKG Normal [facility] 12 Lead EKG Normal [facility] Basic Metabolic Profile (BMP )on 04-04-2025 BUN Normal 4-19 [facility] Comment on above: Result Comment: CANC EL PER DEVEROAUX Performed By: #### L 500.2500 ####[facility] [address] [place], [place], [address] BUN/CRE Normal 10-20 [facility] Comment on above: Result Comment: CANC EL PER DEVEROAUX Performed By: #### L 500.2500 ####[facility] [address] [place], [address] Calcium Normal 7.6-11.0 [facility] Comment on above: Result Comment: CANC EL PER DEVEROAUX Performed By: #### L 500.2500 ####[facility] [address] [place], [address] CL Normal 98-108 [facility] Comment on above: Result Comment: CANC EL PER [place]OAUX Performed By: #### L 500.2500 ####[facility] [address] [place], [address] CO2 Normal 21.0-32.0 [facility] Comment on above: Result Comment: CANC EL PER DEVEROAUX Performed By: #### L 500.2500 ####[facility] [address] [place], [address] CREAT,SERUM Normal 0.70-1.20 [facility] Comment on above: Result Comment: CANC EL PER [place]VEROAUX Performed By: #### L 500.2500 ####[facility] [address] [place], [address] eGFR Normal >60 [facility] Comment on above: Result Comment: CANC EL PER [place]VEROAUX Performed By: #### L 500.2500 ####[facility] [address] [place], [address] GAP Normal 5-15 [facility] Comment on above: Result Comment: CANC EL PER [place]OAUX Performed By: #### L 500.2500 ####[facility] [address] [place], [address] GLU Normal 70-99 [facility] Comment on above: Result Comment: CANC EL PER [place]OAUX Performed By: #### L 500.2500 ####[facility] [address] [place], [address] Potassium Normal 3.3-5.1 [facility] Comment on above: Result Comment: CANC EL PER [place]VEROAUX Performed By: #### L 500.2500 ####[facility] [address] [place], [address] Basic Metabolic Profile (BMP) Normal 133-145 [facility] Comment on above: Result Comment: CANC EL PER DEVEROAUX Performed By: #### L 500.2500 ####[facility] [address] [place], [address] BUN/CRE 20.5 RATIO High 10-20 [facility] Comment on above: Performed By: #### L 500.2500 ####[facility] [address] [place], [address] Calcium [Mass/Vol] 8.6 mg/dL Normal 7.6-11.0 [facility] Comment on above: Performed By: #### L 500.2500 ####[facility] [address] [place], [address] Chloride [Moles/Vol] 101 mmol/L Normal 98-108 [facility] Comment on above: Performed By: #### L 500.2500 ####[facility] [address] [place], [address] CO2 [Moles/Vol] 17.2 mmol/L Low 21.0-32.0 [facility] Comment on above: Performed By: #### L 500.2500 ####[facility] [address] [place], [address] Creatinine [Mass/Vol] 3.74 mg/dL High 0.70-1.20 [facility] Comment on above: Performed By: #### L 500.2500 ####[facility] [address] [place], [address] ECRCL 13.61 ml/min Low 50-250 [facility] Comment on above: Performed By: #### L 500.2500 ####[facility] [address] [place], [address] GAP 17 High 5-15 [facility] Comment on above: Performed By: #### L 500.2500 ####[facility] [address] [place], [address] GFR/1.73 sq M.predicted among non-blacks MDRD (S/P/Bld) [Vol rate/Area] 16 mL/min/{1.73_m2} Low >60 [facility] Comment on above: Result Comment: mL/m in/1.73m2 CKD-EPI Creatinine Equation (2020) Performed By: #### L 500.2500 ####[facility] [address] [place], [address] Glucose [Mass/Vol] 226 mg/dL High 70-99 [facility] Comment on above: Performed By: #### L 500.2500 ####[facility] [address] [place], [address] Potassium [Moles/Vol] 5.4 mmol/L High 3.3-5.1 [facility] Comment on above: Performed By: #### L 500.2500 ####[facility] [address] [place], [address] Sodium [Moles/Vol] 134 mmol/L Normal 133-145 [facility] Comment on above: Performed By: #### L 500.2500 ####[facility] [address] [place], [address] Urea nitrogen [Mass/Vol] 77 mg/dL High 4-19 [facility] Comment on above: Performed By: #### L 500.2500 ####[facility] [address] [place], [address] BUN/CRE 21.0 RATIO High 10-20 [facility] Comment on above: Performed By: #### L 500.2500 ####[facility] [address] [place], [address] Calcium [Mass/Vol] 8.7 mg/dL Normal 7.6-11.0 [facility] Comment on above: Performed By: #### L 500.2500 ####[facility] [address] [place], [address] Chloride [Moles/Vol] 104 mmol/L Normal 98-108 [facility] Comment on above: Performed By: #### L 500.2500 ####[facility] [address] [place], [address] CO2 [Moles/Vol] 17.5 mmol/L Low 21.0-32.0 [facility] Comment on above: Performed By: #### L 500.2500 ####[facility] [address] [place], [address] Creatinine [Mass/Vol] 3.34 mg/dL High 0.70-1.20 [facility] Comment on above: Performed By: #### L 500.2500 ####[facility] [address] [place], [address] ECRCL 15.24 ml/min Low 50-250 [facility] Comment on above: Performed By: #### L 500.2500 ####[facility] [address] [place], [address] GAP 15 Normal 5-15 [facility] Comment on above: Performed By: #### L 500.2500 ####[facility] [address] [place], [address] GFR/1.73 sq M.predicted among non-blacks MDRD (S/P/Bld) [Vol rate/Area] 18 mL/min/{1.73_m2} Low >60 [facility] Comment on above: Result Comment: mL/m in/1.73m2 CKD-EPI Creatinine Equation (2021) Performed By: #### L 500.2500 ####[facility] [address] [place], [address] Glucose [Mass/Vol] 208 mg/dL High 70-99 [facility] Comment on above: Performed By: #### L 500.2500 ####[facility] [address] [place], [address] Potassium [Moles/Vol] 5.0 mmol/L Normal 3.3-5.1 [facility] Comment on above: Performed By: #### L 500.2500 ####[facility] [address] [place], [address] Sodium [Moles/Vol] 137 mmol/L Normal 133-145 [facility] Comment on above: Performed By: #### L 500.2500 ####[facility] [address] [place], [address] Urea nitrogen [Mass/Vol] 70 mg/dL High 4-19 [facility] Comment on above: Performed By: #### L 500.2500 ####[facility] [address] [place], [address] BUN/CRE 21.1 RATIO High 10-20 [facility] Comment on above: Performed By: #### L 500.2500 ####[facility] [address] [place], [address] Calcium [Mass/Vol] 8.6 mg/dL Normal 7.6-11.0 [facility] Comment on above: Performed By: #### L 500.2500 ####[facility] [address] [place], [address] Chloride [Moles/Vol] 103 mmol/L Normal 98-108 [facility] Comment on above: Performed By: #### L 500.2500 ####[facility] [address] [place], [address] CO2 [Moles/Vol] 17.8 mmol/L Low 21.0-32.0 [facility] Comment on above: Performed By: #### L 500.2500 ####[facility] [address] [place], [address] Creatinine [Mass/Vol] 3.26 mg/dL High 0.70-1.20 [facility] Comment on above: Performed By: #### L 500.2500 ####[facility] [address] [place], [address] ECRCL 15.61 ml/min Low 50-250 [facility] Comment on above: Performed By: #### L 500.2500 ####[facility] [address] [place], [address] GAP 15 Normal 5-15 [facility] Comment on above: Performed By: #### L 500.2500 ####[facility] [address] [place], [address] GFR/1.73 sq M.predicted among non-blacks MDRD (S/P/Bld) [Vol rate/Area] 18 mL/min/{1.73_m2} Low >60 [facility] Comment on above: Result Comment: mL/m in/1.73m2 CKD-EPI Creatinine Equation (2020) Performed By: #### L 500.2500 ####[facility] [address] [place], [address] Glucose [Mass/Vol] 203 mg/dL High 70-99 [facility] Comment on above: Performed By: #### L 500.2500 ####[facility] [address] [place], [address] Potassium [Moles/Vol] 4.6 mmol/L Normal 3.3-5.1 [facility] Comment on above: Performed By: #### L 500.2500 ####[facility] [address] [place], [address] Sodium [Moles/Vol] 136 mmol/L Normal 133-145 [facility] Comment on above: Performed By: #### L 500.2500 ####[facility] [address] [place], [address] Urea nitrogen [Mass/Vol] 69 mg/dL High 4-19 [facility] Comment on above: Performed By: #### L 500.2500 ####[facility] [address] [place], [address] Bedside Glucoseon 04-04-2025 FINGERSTICK GLU 355 mg/dL High 74-106 [facility] Comment on above: Result Comment: ADITI GEMENT OF PATIENT CARE PER NURSING PROTOCOL Performed By: #### L 501.080 ####[facility] [address] [place], [address] FINGERSTICK GLU 307 mg/dL High 74-106 [facility] Comment on above: Result Comment: ADITI GEMENT OF PATIENT CARE PER NURSING PROTOCOL Performed By: #### L 501.080 ####[facility] [address] [place], [address] FINGERSTICK GLU 209 mg/dL High 74-106 [facility] Comment on above: Result Comment: ADITI GEMENT OF PATIENT CARE PER NURSING PROTOCOL Performed By: #### L 501.080 ####[facility] [address] [place], [address] FINGERSTICK GLU 164 mg/dL High 74-106 [facility] Comment on above: Result Comment: ADITI GEMENT OF PATIENT CARE PER NURSING PROTOCOL Performed By: #### L 501.080 ####[facility] [address] [place], [address] FINGERSTICK GLU 183 mg/dL High 74-106 [facility] Comment on above: Result Comment: ADITI GEMENT OF PATIENT CARE PER NURSING PROTOCOL Performed By: #### L 501.080 ####[facility] [address] [place], [address] FINGERSTICK GLU 178 mg/dL High 74-106 [facility] Comment on above: Result Comment: ADITI GEMENT OF PATIENT CARE PER NURSING PROTOCOL Performed By: #### L 501.080 ####[facility] [address] [place], [address] FINGERSTICK GLU 229 mg/dL High 74-106 [facility] Comment on above: Result Comment: ADITI GEMENT OF PATIENT CARE PER NURSING PROTOCOL Performed By: #### L 501.080 ####[facility] [address] [place], [address] FINGERSTICK GLU 174 mg/dL High 74-106 [facility] Comment on above: Result Comment: ADITI GEMENT OF PATIENT CARE PER NURSING PROTOCOL Performed By: #### L 501.080 ####[facility] [address] [place], [address] FINGERSTICK GLU 366 mg/dL High 74-106 [facility] Comment on above: Result Comment: ADITI GEMENT OF PATIENT CARE PER NURSING PROTOCOL Performed By: #### L 501.080 ####[facility] [address] [place], [address] FINGERSTICK GLU 250 mg/dL High 74-106 [facility] Comment on above: Result Comment: ADITI GEMENT OF PATIENT CARE PER NURSING PROTOCOL Performed By: #### L 501.080 ####[facility] [address] [place], [address] FINGERSTICK GLU 284 mg/dL High 74-106 [facility] Comment on above: Result Comment: ADITI GEMENT OF PATIENT CARE PER NURSING PROTOCOL Performed By: #### L 501.080 ####[facility] [address] [place], [address] FINGERSTICK GLU 261 mg/dL High [address] [facility] Comment on above: Result Comment: ADITI GEMENT OF PATIENT CARE PER NURSING PROTOCOL Performed By: #### L 501.080 ####[facility] [address] [place], [address] FINGERSTICK GLU 317 mg/dL High 74-106 [facility] Comment on above: Result Comment: ADITI GEMENT OF PATIENT CARE PER NURSING PROTOCOL Performed By: #### L 501.080 ####[facility] [address] [place], [address] FINGERSTICK GLU 235 mg/dL High 74-106 [facility] Comment on above: Result Comment: ADITI GEMENT OF PATIENT CARE PER NURSING PROTOCOL Performed By: #### L 501.080 ####[facility] [address] [place], [address] CBC W/Diff, Automatedon 06-0 4-5 Absolute Lymph 1.08 X10 3/uL Normal 0.83-4.51 [facility] Comment on above: Performed By: #### L 100.0100 ####[facility] [address] [place], [address] Absolute Neut 19.9 X10 3/uL High 2.0-7.7 [facility] Comment on above: Performed By: #### L 100.0100 ####[facility] [address] [place], [address] Basophils/100 WBC (Bld) 0.1 % Normal 0-1 [facility] Comment on above: Performed By: #### L 100.0100 ####[facility] [address] [place], [address] Eosinophils/100 WBC (Bld) 0.0 % Normal 0-5 [facility] Comment on above: Performed By: #### L 100.0100 ####[facility] [address] [place], [address] Erythrocyte distribution width (RBC) [Ratio] 13.6 % Normal 11.6-14.6 [facility] Comment on above: Performed By: #### L 100.0100 ####[facility] [address] [place], [address] Hematocrit (Bld) [Volume fraction] 22.8 % Low 40-54 [facility] Comment on above: Performed By: #### L 100.0100 ####[facility] [address] [place], [address] Hemoglobin (Bld) [Mass/Vol] 7.4 g/dL Low 13.0-16.5 [facility] Comment on above: Performed By: #### L 100.0100 ####[facility] [address] [place], [address] IG% 0.600 Normal 0.0-0.9 [facility] Comment on above: Result Comment: IG% - Immature Granulocytes (promyelocytes, myelocytes andmetamyelocytes) > 1% indicates that a LEFT SHIFT is Present. Performed By: #### L 100.0100 ####[facility] [address] [place], [address] Lymphocytes/100 WBC (Bld) 4.9 % Low 19-41 [facility] Comment on above: Performed By: #### L 100.0100 ####[facility] [address] [place], [address] MCH (RBC) [Entitic mass] 30.0 pg Normal 27.0-32.0 [facility] Comment on above: Performed By: #### L 100.0100 ####[facility] [address] [place], [address] MCHC (RBC) [Mass/Vol] 32.5 g/dL Normal 32-36 [facility] Comment on above: Performed By: #### L 100.0100 ####[facility] [address] [place], [address] MCV (RBC) [Entitic vol] 92.3 fL Normal 80-94 [facility] Comment on above: Performed By: #### L 100.0100 ####[facility] [address] [place], [address] Monocytes/100 WBC (Bld) 4.0 % Normal 0-10 [facility] Comment on above: Performed By: #### L 100.0100 ####[facility] [address] [place], [address] Neutrophils/100 WBC (Bld) 90.4 % High 47-70 [facility] Comment on above: Performed By: #### L 100.0100 ####[facility] [address] [place], [address] Nucleated RBC (Bld) [#/Vol] 0 10*3/uL Normal 0-5 [facility] Comment on above: Performed By: #### L 100.0100 ####[facility] [address] [place], [address] Platelet mean volume (Bld) [Entitic vol] 11.4 fL Normal 6.2-12.0 [facility] Comment on above: Performed By: #### L 100.0100 ####[facility] [address] [place], [address] Platelets (Bld) [#/Vol] 230 10*3/uL Normal 150-450 [facility] Comment on above: Performed By: #### L 100.0100 ####[facility] [address] [place], [address] RBC (Bld) [#/Vol] 2.47 10*6/uL Low 4.6-6.2 [facility] Comment on above: Performed By: #### L 100.0100 ####[facility] [address] [place], [address] RDW SD 45.9 fl High 35.1-43.9 [facility] Comment on above: Performed By: #### L 100.0100 ####[facility] [address] [place], [address] WBC (Bld) [#/Vol] 22.0 10*3/uL High 4.4-11.0 [facility] Comment on above: Performed By: #### L 100.0100 ####[facility] [address] [place], [address] Consultation - Nephrologyon 04-04-2025 Consultation - Nephrology Normal [facility] Creatinine, Urineon 04-04-20 25 URINE CREAT 138.00 mg/dL Normal 39.00-259.00 [facility] Comment on above: Performed By: #### L 502.0715, L502.0300 ####[facility] [address] [place], [address] Kidney and Bladderon 025 Kidney and Bladder Normal [facility] L501.4021on 04-04-2025 Trop T High Sen 2204 ng/L Invalid Interpretation Code <=22 [facility] Comment on above: Result Comment: Crit ical Result(s) Called at: 223 by: JEANNIE SHARMA Results read back by same. Performed By: #### L 501.4021 ####[facility] [address] [place], [address] Troponin T.cardiac [Mass/vol ume] in Serum or Plasma by High sensitivity methodOrdered By: Breezy Campbell on 04-04-2025 Troponin T.cardiac High sensitivity method [Mass/Vol] 2204 ng/L High <22 [facility] Comment on above: Delta: 58 on 5-0005Critical Result(s) Called at: 2232 by: JEANNIE SHARMA Results read back by same. Troponin T.cardiac High sensitivity method [Mass/Vol] 2263 ng/L High <22 [facility] Comment on above: Critical Result(s) C alled at: 0040 by: JENNIFER SHARMA Results read back by same. Urea Nitrogen, Urineon 04-04 URINE UREA 406 mg/dL Normal NO RANGE EST. [facility] Comment on above: Performed By: #### L 502.0715, L502.0300 ####[facility] [address] [place], [place], [address] Urine Cultureon 04-04-2025 URC Culture exhibits no growth. Normal [facility] Comment on above: Performed By: #### M 100.2200 ####[facility] [address] [place], [place], [address] Urine creatinine measurement (mass/volume)Ordered By: Grace Arnold on 04-04-2025 Creatinine (U) [Mass/Vol] 138.00 mg/dL 39.00-25 9.00 [facility] 12 Lead EKGon 04-03-2025 12 Lead EKG Normal [facility] Absolute lymphocyte countOrd ered By: John Brandon on 04-03-2025 Lymphocytes Auto (Unsp spec) [#/Vol] 2.12 10*3/uL 0.83-4.51 [facility] Absolute neutrophil countOrd ered By: John Brandon on 04-03-2025 Neutrophils (Bld) [#/Vol] 12.0 10*3/uL High 2.0-7.7 [facility] Activated partial thrombopla stin time (aPTT) in platelet poor plasma by coagulation aOrdered By: Grace Arnold on 04-03-2025 aPTT Coag (PPP) [Time] 212.0 s High 24.1-36.2 [facility] Comment on above: CRITICAL VALUE GRIMM D TO RElizabet VIZZO04/03/25 1243 Ness Huang.RESULTS READ BACK BY SAME. Activated partial thrombopla stin time (aPTT) in platelet poor plasma by coagulation aOrdered By: Dyana Hwang on 04-03-2025 aPTT Coag (PPP) [Time] 37.3 s High 24.1-36.2 [facility] Anion gap in Serum or Plasma Ordered By: John Brandon on 04-03-2025 Anion gap [Moles/Vol] 14 mmol/L 5-15 [facility] Assessment of wrist artery p atency prior to arterial punctureOrdered By: Dyana Hwang on 04-03-2025 Arterial patency Wrist artery --pre arterial puncture Positive [facility] Automated lymphocyte count a s percentage of total leukocytesOrdered By: John Brandon on 04-03-2025 Lymphocytes/100 WBC Auto (Unsp spec) 13.5 % Low 19-41 [facility] BUN/creatinine ratioOrdered By: John Brandon on 04-03-2025 Urea nitrogen/Creatinine [Mass ratio] 22.3 mg/mg High 10-20 [facility] Basic Metabolic Profile (BMP )on 04-03-2025 BUN/CRE 21.7 RATIO High 10-20 [facility] Comment on above: Performed By: #### L 500.2500 ####[facility] [address] [place], [address] Calcium [Mass/Vol] 8.5 mg/dL Normal 7.6-11.0 [facility] Comment on above: Performed By: #### L 500.2500 ####[facility] [address] [place], [address] Chloride [Moles/Vol] 102 mmol/L Normal 98-108 [facility] Comment on above: Performed By: #### L 500.2500 ####[facility] [address] [place], [address] CO2 [Moles/Vol] 17.3 mmol/L Low 21.0-32.0 [facility] Comment on above: Performed By: #### L 500.2500 ####[facility] [address] [place], [address] Creatinine [Mass/Vol] 3.02 mg/dL High 0.70-1.20 [facility] Comment on above: Performed By: #### L 500.2500 ####[facility] [address] [place], [address] ECRCL 16.69 ml/min Low 50-250 [facility] Comment on above: Performed By: #### L 500.2500 ####[facility] [address] [place], [address] GAP 16 High 5-15 [facility] Comment on above: Performed By: #### L 500.2500 ####[facility] [address] [place], [address] GFR/1.73 sq M.predicted among non-blacks MDRD (S/P/Bld) [Vol rate/Area] 20 mL/min/{1.73_m2} Low >60 [facility] Comment on above: Result Comment: mL/m in/1.73m2 CKD-EPI Creatinine Equation (2020) Performed By: #### L 500.2500 ####[facility] [address] [place], [address] Glucose [Mass/Vol] 275 mg/dL High 70-99 [facility] Comment on above: Performed By: #### L 500.2500 ####[facility] [address] [place], [address] Potassium [Moles/Vol] 4.5 mmol/L Normal 3.3-5.1 [facility] Comment on above: Performed By: #### L 500.2500 ####[facility] [address] [place], [address] Sodium [Moles/Vol] 136 mmol/L Normal 133-145 [facility] Comment on above: Performed By: #### L 500.2500 ####[facility] [address] [place], [address] Urea nitrogen [Mass/Vol] 66 mg/dL High 4-19 [facility] Comment on above: Performed By: #### L 500.2500 ####[facility] [address] [place], [address] BUN/CRE 22.9 RATIO High 10-20 [facility] Comment on above: Performed By: #### L 500.2500 ####[facility] [address] [place], [address] Calcium [Mass/Vol] 9.0 mg/dL Normal 7.6-11.0 [facility] Comment on above: Performed By: #### L 500.2500 ####[facility] [address] [place], [address] Chloride [Moles/Vol] 100 mmol/L Normal 98-108 [facility] Comment on above: Performed By: #### L 500.2500 ####[facility] [address] [place], [address] CO2 [Moles/Vol] 16.9 mmol/L Low 21.0-32.0 [facility] Comment on above: Performed By: #### L 500.2500 ####[facility] [address] [place], [address] Creatinine [Mass/Vol] 2.73 mg/dL High 0.70-1.20 [facility] Comment on above: Performed By: #### L 500.2500 ####[facility] [address] [place], [address] ECRCL 18.46 ml/min Low 50-250 [facility] Comment on above: Performed By: #### L 500.2500 ####[facility] [address] [place], [address] GAP 18 High 5-15 [facility] Comment on above: Performed By: #### L 500.2500 ####[facility] [address] [place], [address] GFR/1.73 sq M.predicted among non-blacks MDRD (S/P/Bld) [Vol rate/Area] 23 mL/min/{1.73_m2} Low >60 [facility] Comment on above: Result Comment: mL/m in/1.73m2 CKD-EPI Creatinine Equation (2020) Performed By: #### L 500.2500 ####[facility] [address] [place], [address] Glucose [Mass/Vol] 407 mg/dL High 70-99 [facility] Comment on above: Performed By: #### L 500.2500 ####[facility] [address] [place], [address] Potassium [Moles/Vol] 4.3 mmol/L Normal 3.3-5.1 [facility] Comment on above: Performed By: #### L 500.2500 ####[facility] [address] [place], [address] Sodium [Moles/Vol] 135 mmol/L Normal 133-145 [facility] Comment on above: Performed By: #### L 500.2500 ####[facility] [address] [place], [address] Urea nitrogen [Mass/Vol] 62 mg/dL High 4-19 [facility] Comment on above: Performed By: #### L 500.2500 ####[facility] [address] [place], [address] BUN/CRE 21.7 RATIO High 10-20 [facility] Comment on above: Performed By: #### L 500.2500 ####[facility] [address] [place], [address] Calcium [Mass/Vol] 8.6 mg/dL Normal 7.6-11.0 [facility] Comment on above: Performed By: #### L 500.2500 ####[facility] [address] [place], [address] Chloride [Moles/Vol] 98 mmol/L Normal 98-108 [facility] Comment on above: Performed By: #### L 500.2500 ####[facility] [address] [place], [address] CO2 [Moles/Vol] 13.6 mmol/L Low 21.0-32.0 [facility] Comment on above: Performed By: #### L 500.2500 ####[facility] [address] [place], [address] Creatinine [Mass/Vol] 2.67 mg/dL High 0.70-1.20 [facility] Comment on above: Performed By: #### L 500.2500 ####[facility] [address] [place], [address] ECRCL 18.87 ml/min Low 50-250 [facility] Comment on above: Performed By: #### L 500.2500 ####[facility] [address] [place], [address] GAP 21 High 5-15 [facility] Comment on above: Performed By: #### L 500.2500 ####[facility] [address] [place], [address] GFR/1.73 sq M.predicted among non-blacks MDRD (S/P/Bld) [Vol rate/Area] 23 mL/min/{1.73_m2} Low >60 [facility] Comment on above: Result Comment: mL/m in/1.73m2 CKD-EPI Creatinine Equation (2020) Performed By: #### L 500.2500 ####[facility] [address] [place], [address] Glucose [Mass/Vol] 638 mg/dL Invalid Interpretation Code 70-99 [facility] Comment on above: Result Comment: Crit ical Result(s) Called STEPHANY at: 1553 by:COLETTE??Results read back by same. Performed By: #### L 500.2500 ####[facility] [address] [place], [address] Potassium [Moles/Vol] 4.4 mmol/L Normal 3.3-5.1 [facility] Comment on above: Performed By: #### L 500.2500 ####[facility] [address] [place], [address] Sodium [Moles/Vol] 133 mmol/L Normal 133-145 [facility] Comment on above: Performed By: #### L 500.2500 ####[facility] [address] [place], [address] Urea nitrogen [Mass/Vol] 58 mg/dL High 4-19 [facility] Comment on above: Performed By: #### L 500.2500 ####[facility] [address] [place], [address] BUN/CRE 22.3 RATIO High 10-20 [facility] Comment on above: Performed By: #### L 100.0100, L500.2500, L300.8000 ####[facility] [address] [place], [address] Calcium [Mass/Vol] 8.8 mg/dL Normal 7.6-11.0 [facility] Comment on above: Performed By: #### L 100.0100, L500.2500, L300.8000 ####[facility] [address] [place], [address] Chloride [Moles/Vol] 104 mmol/L Normal 98-108 [facility] Comment on above: Performed By: #### L 100.0100, L500.2500, L300.8000 ####[facility] [address] [place], [address] CO2 [Moles/Vol] 20.8 mmol/L Low 21.0-32.0 [facility] Comment on above: Performed By: #### L 100.0100, L500.2500, L300.8000 ####[facility] [address] [place], [address] Creatinine [Mass/Vol] 1.88 mg/dL High 0.70-1.20 [facility] Comment on above: Performed By: #### L 100.0100, L500.2500, L300.8000 ####[facility] [address] [place], [address] ECRCL 28.20 ml/min Low 50-250 [facility] Comment on above: Performed By: #### L 100.0100, L500.2500, L300.8000 ####[facility] [address] [place], [address] GAP 14 Normal 5-15 [facility] Comment on above: Performed By: #### L 100.0100, L500.2500, L300.8000 ####[facility] [address] [place], [address] GFR/1.73 sq M.predicted among non-blacks MDRD (S/P/Bld) [Vol rate/Area] 35 mL/min/{1.73_m2} Low >60 [facility] Comment on above: Result Comment: mL/m in/1.73m2 CKD-EPI Creatinine Equation (2020) Performed By: #### L 100.0100, L500.2500, L300.8000 ####[facility] [address] [place], [address] Glucose [Mass/Vol] 255 mg/dL High 70-99 [facility] Comment on above: Performed By: #### L 100.0100, L500.2500, L300.8000 ####[facility] [address] [place], [address] Potassium [Moles/Vol] 4.4 mmol/L Normal 3.3-5.1 [facility] Comment on above: Performed By: #### L 100.0100, L500.2500, L300.8000 ####[facility] [address] [place], [address] Sodium [Moles/Vol] 139 mmol/L Normal 133-145 [facility] Comment on above: Performed By: #### L 100.0100, L500.2500, L300.8000 ####[facility] [address] [place], [address] Urea nitrogen [Mass/Vol] 42 mg/dL High 4-19 [facility] Comment on above: Performed By: #### L 100.0100, L500.2500, L300.8000 ####[facility] [address] [place], [address] Basophil percentageOrdered B y: John Aleksandr on 04-03-2025 Basophils/100 WBC (Bld) 0.6 % 0-1 [facility] Bedside Glucoseon 04-03-2025 FINGERSTICK GLU 363 mg/dL High 74-106 [facility] Comment on above: Result Comment: ADITI CHOPRAENT OF PATIENT CARE PER NURSING PROTOCOL Performed By: #### L 501.080 ####[facility] [address] [place], [address] FINGERSTICK GLU 454 mg/dL Invalid Interpretation Code 74-106 [facility] Comment on above: Result Comment: Dr James sim FollowedMANAGEMENT OF PATIENT CARE PER NURSING PROTOCOL Performed By: #### L 501.080 ####[facility] [address] [place], [address] FINGERSTICK GLU 496 mg/dL Invalid Interpretation Code 74-106 [facility] Comment on above: Result Comment: Dr James sim FollowedMANAGEMENT OF PATIENT CARE PER NURSING PROTOCOL Performed By: #### L 501.080 ####[facility] [address] [place], [address] FINGERSTICK GLU > 500 Invalid Interpretation Code [address] [place] [address] Comment on above: Result Comment: ADITI GEMENT OF PATIENT CARE PER NURSING PROTOCOL Performed By: #### L 501.080 ####[facility] [address] [place], [address] FINGERSTICK GLU > 500 Invalid Interpretation Code [address] [place] [address] Comment on above: Result Comment: ADITI GEMENT OF PATIENT CARE PER NURSING PROTOCOL Performed By: #### L 501.080 ####[facility] [address] [place], [address] FINGERSTICK GLU > 500 Invalid Interpretation Code [address] [place] [address] Comment on above: Result Comment: ADITI GEMENT OF PATIENT CARE PER NURSING PROTOCOL Performed By: #### L 501.080 ####[facility] [address] [place], [address] FINGERSTICK GLU 435 mg/dL High [address] [place] [address] Comment on above: Result Comment: ADITI GEMENT OF PATIENT CARE PER NURSING PROTOCOL Performed By: #### L 501.080 ####[facility] [address] [place], [address] Bilirubin, totalOrdered By: Dyana Hwang on 04-03-2025 Bilirubin [Mass/Vol] 0.38 mg/dL 0.00-1.30 [facility] Positive Normal [facility] Comment on above: Performed By: #### L 9000.0800 ####[facility] [address] [place], [address] Base excess Calc (Bld) [Moles/Vol] -8 mmol/L Low -2 to +2 [facility] Comment on above: Performed By: #### L 9000.0800 ####[facility] [address] [place], [address] Blood Gas Type ART Normal [facility] Comment on above: Performed By: #### L 8999.799 ####[facility] [address] [place], [address] CO2 [Moles/Vol] 18 mmol/L Normal [facility] Comment on above: Performed By: #### L 8999.08 ####[facility] [address] [place], [address] FI02 30.0 Normal [facility] Comment on above: Performed By: #### L 8999.799 ####[facility] [address] [place], [address] HCO3 (Bld) [Moles/Vol] 17.5 mmol/L Low 22-26 [facility] Comment on above: Performed By: #### L 8999.08 ####[facility] [address] [place], [address] Mode Not entered Normal [facility] Comment on above: Performed By: #### L 8999.08 ####[facility] [address] [place], [address] O2 Delivery Dev BiPAP Normal [facility] Comment on above: Performed By: #### L 8999.08 ####[facility] [address] [place], [address] pCO2 29.8 mmHg Low 35-45 [facility] Comment on above: Performed By: #### L 8999.08 ####[facility] [address] [place], [address] PEEP 10 Normal [facility] Comment on above: Performed By: #### L 8999.08 ####[facility] [address] [place], [address] pH (Bld) 7.38 [pH] Normal 7.35-7.45 [facility] Comment on above: Performed By: #### L 9000.0800 ####[facility] [address] [place], [address] PIP 18 Normal [facility] Comment on above: Performed By: #### L 9000.0800 ####[facility] [address] [place], [address] PO2 83 mmHG Normal 75-100 [facility] Comment on above: Performed By: #### L 9000.0800 ####[facility] [address] [place], [address] RR 12 Normal [facility] Comment on above: Performed By: #### L 9000.0800 ####[facility] [address] [place], [address] SITE R Radial Normal [facility] Comment on above: Performed By: #### L 9000.0800 ####[facility] [address] [place], [address] SO2 96 Normal 95-99 [facility] Comment on above: Performed By: #### L 9000.0800 ####[facility] [address] [place], [address] Blood base excess determinat ionOrdered By: Dyana Hwang on 04-03-2025 Base excess Calc (BldV) [Moles/Vol] -8 mmol/L Low -2-2 [facility] Blood bicarbonate measuremen tOrdered By: Dyana Hwang on 04-03-2025 HCO3 (Bld) [Moles/Vol] 17.5 mmol/L Low 22-26 [facility] Blood cultureOrdered By: Elli Brandon on 04-03-2025 Bacteria identified Cx Nom (Bld) No growth in 5 days. [facility] Bacteria identified Cx Nom (Bld) No growth in 5 days. [facility] CBC W/Diff, Automatedon 06-0 3-2024 Absolute Lymph 0.43 X10 3/uL Low 0.83-4.51 [facility] Comment on above: Performed By: #### L 100.0100 ####[facility] [address] [place], [address] Absolute Neut 12.4 X10 3/uL High 2.0-7.7 [facility] Comment on above: Performed By: #### L 100.0100 ####[facility] [address] [place], [address] Basophils/100 WBC (Bld) 0.3 % Normal 0-1 [facility] Comment on above: Performed By: #### L 100.0100 ####[facility] [address] [place], [address] Eosinophils/100 WBC (Bld) 0.0 % Normal 0-5 [facility] Comment on above: Performed By: #### L 100.0100 ####[facility] [address] [place], [address] Erythrocyte distribution width (RBC) [Ratio] 13.4 % Normal 11.6-14.6 [facility] Comment on above: Performed By: #### L 100.0100 ####[facility] [address] [place], [address] Hematocrit (Bld) [Volume fraction] 28.9 % Low 40-54 [facility] Comment on above: Performed By: #### L 100.0100 ####[facility] [address] [place], [address] Hemoglobin (Bld) [Mass/Vol] 9.3 g/dL Low 13.0-16.5 [facility] Comment on above: Performed By: #### L 100.0100 ####[facility] [address] [place], [address] IG% 0.500 Normal 0.0-0.9 [facility] Comment on above: Result Comment: IG% - Immature Granulocytes (promyelocytes, myelocytes andmetamyelocytes) > 1% indicates that a LEFT SHIFT is Present. Performed By: #### L 100.0100 ####[facility] [address] [place], [address] Lymphocytes/100 WBC (Bld) 3.3 % Low 19-41 [facility] Comment on above: Performed By: #### L 100.0100 ####[facility] [address] [place], [address] MCH (RBC) [Entitic mass] 30.1 pg Normal 27.0-32.0 [facility] Comment on above: Performed By: #### L 100.0100 ####[facility] [address] [place], [address] MCHC (RBC) [Mass/Vol] 32.2 g/dL Normal 32-36 [facility] Comment on above: Performed By: #### L 100.0100 ####[facility] [address] [place], [address] MCV (RBC) [Entitic vol] 93.5 fL Normal 80-94 [facility] Comment on above: Performed By: #### L 100.0100 ####[facility] [address] [place], [address] Monocytes/100 WBC (Bld) 1.1 % Normal 0-10 [facility] Comment on above: Performed By: #### L 100.0100 ####[facility] [address] [place], [address] Neutrophils/100 WBC (Bld) 94.8 % High 47-70 [facility] Comment on above: Performed By: #### L 100.0100 ####[facility] [address] [place], [address] Nucleated RBC (Bld) [#/Vol] 0 10*3/uL Normal 0-5 [facility] Comment on above: Performed By: #### L 100.0100 ####[facility] [address] [place], [address] Platelet mean volume (Bld) [Entitic vol] 11.4 fL Normal 6.2-12.0 [facility] Comment on above: Performed By: #### L 100.0100 ####[facility] [address] [place], [address] Platelets (Bld) [#/Vol] 268 10*3/uL Normal 150-450 [facility] Comment on above: Performed By: #### L 100.0100 ####[facility] [address] [place], [address] RBC (Bld) [#/Vol] 3.09 10*6/uL Low 4.6-6.2 [facility] Comment on above: Performed By: #### L 100.0100 ####[facility] [address] [place], [address] RDW SD 45.9 fl High 35.1-43.9 [facility] Comment on above: Performed By: #### L 100.0100 ####[facility] [address] [place], [address] WBC (Bld) [#/Vol] 13.0 10*3/uL High 4.4-11.0 [facility] Comment on above: Performed By: #### L 100.0100 ####[facility] [address] [place], [address] Absolute Lymph 2.12 X10 3/uL Normal 0.83-4.51 [facility] Comment on above: Performed By: #### L 100.0100, L500.2500, L300.8000 ####[facility] [address] [place], [address] Absolute Neut 12.0 X10 3/uL High 2.0-7.7 [facility] Comment on above: Performed By: #### L 100.0100, L500.2500, L300.8000 ####[facility] [address] [place], [address] Basophils/100 WBC (Bld) 0.6 % Normal 0-1 [facility] Comment on above: Performed By: #### L 100.0100, L500.2500, L300.8000 ####[facility] [address] [place], [address] Eosinophils/100 WBC (Bld) 1.9 % Normal 0-5 [facility] Comment on above: Performed By: #### L 100.0100, L500.2500, L300.8000 ####[facility] [address] [place], [address] Erythrocyte distribution width (RBC) [Ratio] 13.2 % Normal 11.6-14.6 [facility] Comment on above: Performed By: #### L 100.0100, L500.2500, L300.8000 ####[facility] [address] [place], [address] Hematocrit (Bld) [Volume fraction] 32.2 % Low 40-54 [facility] Comment on above: Performed By: #### L 100.0100, L500.2500, L300.8000 ####[facility] [address] [place], [address] Hemoglobin (Bld) [Mass/Vol] 10.2 g/dL Low 13.0-16.5 [facility] Comment on above: Performed By: #### L 100.0100, L500.2500, L300.8000 ####[facility] [address] [place], [address] IG% 0.600 Normal 0.0-0.9 [facility] Comment on above: Result Comment: IG% - Immature Granulocytes (promyelocytes, myelocytes andmetamyelocytes) > 1% indicates that a LEFT SHIFT is Present. Performed By: #### L 100.0100, L500.2500, L300.8000 ####[facility] [address] [place], [address] Lymphocytes/100 WBC (Bld) 13.5 % Low 19-41 [facility] Comment on above: Performed By: #### L 100.0100, L500.2500, L300.8000 ####[facility] [address] [place], [address] MCH (RBC) [Entitic mass] 29.9 pg Normal 27.0-32.0 [facility] Comment on above: Performed By: #### L 100.0100, L500.2500, L300.8000 ####[facility] [address] [place], [address] MCHC (RBC) [Mass/Vol] 31.7 g/dL Low 32-36 [facility] Comment on above: Performed By: #### L 100.0100, L500.2500, L300.8000 ####[facility] [address] [place], [address] MCV (RBC) [Entitic vol] 94.4 fL High 80-94 [facility] Comment on above: Performed By: #### L 100.0100, L500.2500, L300.8000 ####[facility] [address] [place], [address] Monocytes/100 WBC (Bld) 7.0 % Normal 0-10 [facility] Comment on above: Performed By: #### L 100.0100, L500.2500, L300.8000 ####[facility] [address] [place], [address] Neutrophils/100 WBC (Bld) 76.4 % High 47-70 [facility] Comment on above: Performed By: #### L 100.0100, L500.2500, L300.8000 ####[facility] [address] [place], [address] Nucleated RBC (Bld) [#/Vol] 0 10*3/uL Normal 0-5 [facility] Comment on above: Performed By: #### L 100.0100, L500.2500, L300.8000 ####[facility] [address] [place], [address] Platelet mean volume (Bld) [Entitic vol] 10.8 fL Normal 6.2-12.0 [facility] Comment on above: Performed By: #### L 100.0100, L500.2500, L300.8000 ####[facility] [address] [place], [address] Platelets (Bld) [#/Vol] 300 10*3/uL Normal 150-450 [facility] Comment on above: Performed By: #### L 100.0100, L500.2500, L300.8000 ####[facility] [address] [place], [address] RBC (Bld) [#/Vol] 3.41 10*6/uL Low 4.6-6.2 [facility] Comment on above: Performed By: #### L 100.0100, L500.2500, L300.8000 ####[facility] [address] [place], [address] RDW SD 45.3 fl High 35.1-43.9 [facility] Comment on above: Performed By: #### L 100.0100, L500.2500, L300.8000 ####[facility] [address] [place], [address] WBC (Bld) [#/Vol] 15.7 10*3/uL High 4.4-11.0 [facility] Comment on above: Performed By: #### L 100.0100, L500.2500, L300.8000 ####[facility] [address] [place], [address] CO2 (BldV) [Moles/Vol]Ordere d By: John Brandon on 04-03-2025 CO2 [Moles/Vol] 27 mmol/L 23-33 [facility] CTA Chest W/WO Contraston CTA Chest W/WO Contrast Normal [facility] Calculated very low density lipoprotein (VLDL) cholesterol measurementOrdered By: Dyana Hwang on 04-03-2025 Calculated very low density lipoprotein (VLDL) cholesterol measurement 9 mg/dL 5-40 [facility] Carbon dioxide, total [Moles /volume] in Central venous bloodOrdered By: John Brandon on 04-03-2025 CO2 [Moles/Vol] 20.8 mmol/L Low 21.0-32.0 [facility] Chest 1 View (Portable)on Chest 1 View (Portable) Normal [facility] Chloride assayOrdered By: Shabbir Brandon on 04-03-2025 Chloride [Moles/Vol] 104 mmol/L 98-108 [facility] Comprehensive Metabolic Prof ilon 04-03-2025 Albumin [Mass/Vol] 3.6 g/dL Normal 3.4-4.8 [facility] Comment on above: Performed By: #### L 500.4050, L501.9520, L509.7001, L500.4100 ####[facility] [address] [place], [address] Albumin/Globulin [Mass ratio] 1.5 {ratio} Normal 0.9-2.4 [facility] Comment on above: Performed By: #### L 500.4050, L501.9520, L509.7001, L500.4100 ####[facility] [address] [place], [address] ALK PHOS 80 U/L Normal 40-129 [facility] Comment on above: Performed By: #### L 500.4050, L501.9520, L509.7001, L500.4100 ####[facility] [address] [place], [address] ALT [Catalytic activity/Vol] 16 U/L Normal <=46 [facility] Comment on above: Performed By: #### L 500.4050, L501.9520, L509.7001, L500.4100 ####[facility] [address] [place], [address] AST [Catalytic activity/Vol] 24 U/L Normal <=37 [facility] Comment on above: Performed By: #### L 500.4050, L501.9520, L509.7001, L500.4100 ####[facility] [address] [place], [address] Bilirubin [Mass/Vol] 0.38 mg/dL Normal 0.00-1.30 [facility] Comment on above: Performed By: #### L 500.4050, L501.9520, L509.7001, L500.4100 ####[facility] [address] [place], [address] BUN/CRE 24.6 RATIO High 10-20 [facility] Comment on above: Performed By: #### L 500.4050, L501.9520, L509.7001, L500.4100 ####[facility] [address] [place], [address] Calcium [Mass/Vol] 7.9 mg/dL Normal 7.6-11.0 [facility] Comment on above: Performed By: #### L 500.4050, L501.9520, L509.7001, L500.4100 ####[facility] [address] [place], [address] Chloride [Moles/Vol] 104 mmol/L Normal 98-108 [facility] Comment on above: Performed By: #### L 500.4050, L501.9520, L509.7001, L500.4100 ####[facility] [address] [place], [address] CO2 [Moles/Vol] 15.5 mmol/L Low 21.0-32.0 [facility] Comment on above: Performed By: #### L 500.4050, L501.9520, L509.7001, L500.4100 ####[facility] [address] [place], [address] Creatinine [Mass/Vol] 1.77 mg/dL High 0.70-1.20 [facility] Comment on above: Performed By: #### L 500.4050, L501.9520, L509.7001, L500.4100 ####[facility] [address] [place], [address] ECRCL 28.47 ml/min Low 50-250 [facility] Comment on above: Performed By: #### L 500.4050, L501.9520, L509.7001, L500.4100 ####[facility] [address] [place], [address] GAP 18 High 5-15 [facility] Comment on above: Performed By: #### L 500.4050, L501.9520, L509.7001, L500.4100 ####[facility] [address] [place], [address] GFR/1.73 sq M.predicted among non-blacks MDRD (S/P/Bld) [Vol rate/Area] 38 mL/min/{1.73_m2} Low >60 [facility] Comment on above: Result Comment: mL/m in/1.73m2 CKD-EPI Creatinine Equation (2020) Performed By: #### L 500.4050, L501.9520, L509.7001, L500.4100 ####[facility] [address] [place], [address] Globulin (S) [Mass/Vol] 2.4 g/dL Normal 2.2-4.2 [facility] Comment on above: Performed By: #### L 500.4050, L501.9520, L509.7001, L500.4100 ####[facility] [address] [place], [address] Glucose [Mass/Vol] 428 mg/dL High 70-99 [facility] Comment on above: Performed By: #### L 500.4050, L501.9520, L509.7001, L500.4100 ####[facility] [address] [place], [address] Potassium [Moles/Vol] 4.5 mmol/L Normal 3.3-5.1 [facility] Comment on above: Performed By: #### L 500.4050, L501.9520, L509.7001, L500.4100 ####[facility] [address] [place], [address] Sodium [Moles/Vol] 137 mmol/L Normal 133-145 [facility] Comment on above: Performed By: #### L 500.4050, L501.9520, L509.7001, L500.4100 ####[facility] [address] [place], [address] T PROT 6.0 g/dL Normal 5.9-8.4 [facility] Comment on above: Performed By: #### L 500.4050, L501.9520, L509.7001, L500.4100 ####[facility] [address] [place], [address] Urea nitrogen [Mass/Vol] 44 mg/dL High 4-19 [facility] Comment on above: Performed By: #### L 500.4050, L501.9520, L509.7001, L500.4100 ####[facility] [address] 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 Performed By: #### L 100.0100, L500.2500, L300.8000 ####[facility] [address] [place], [address] Echo Completeon 04-03-2025 Echo Complete Normal [facility] Echocardiogram study reportO rdered By: Koffi Gibbs on 04-03-2025 Study report [facility] [address] [place] [address] Echo Complete 04/03/25 0920 MR#: [id number] Acct: [id number] Name: ENOC ARMANDO Rep #:[id number] : 1945 79 From: Koffi Gibbs MD [...] ~ Date Dictated: 04/03/25919 Date Transcribed: 04/03/251221 Derrick Hand: Signed [facility] Work Phone: Emergency Department Summary on 04-03-2025 Emergency Department Summary Normal [facility] Eosinophil percentageOrdered By: John Brandon on 04-03-2025 Eosinophils/100 WBC (Bld) 1.9 % 0-5 [facility] Erythrocyte distribution wid th ratioOrdered By: John Brandon on 04-03-2025 Erythrocyte distribution width (RBC) [Ratio] 13.2 % 11.6-14.6 [facility] Erythrocyte distribution wid th standard deviationOrdered By: John Brandon on 04-03-2025 Erythrocyte distribution width (RBC) [Ratio] 45.3 fl High 35.1-43.9 [facility] Glomerular filtration rate ( GFR) estimation/1.73 sq m using serum, plasma, or whole bOrdered By: John Brandon on 04-03-2025 GFR/1.73 sq M.predicted among non-blacks MDRD (S/P/Bld) [Vol rate/Area] 35 mL/min/{1.73_m2} Low >60 [facility] Comment on above: mL/min/1.73m2 CKD-EP I Creatinine Equation (2020) H AND P Exam - Hospitaliston 04-03-2025 H&P Exam - Hospitalist Normal [facility] Hematocrit Auto (Bld) [Volum e fraction]Ordered By: John Brandon on 04-03-2025 Hematocrit (Bld) [Volume fraction] 32.2 % Low 40-54 [facility] Hemoglobin measurementOrdere d By: John Brandon on 04-03-2025 Hemoglobin (Bld) [Mass/Vol] 10.2 g/dL Low 13.0-16.5 [facility] Immature granulocytes/100 WB C Auto (Bld)Ordered By: John Brandon on 04-03-2025 Immature granulocytes/100 WBC (Bld) 0.600 % 0.0-0.9 [facility] Comment on above: IG% - Immature Granu locytes (promyelocytes, myelocytes and metamyelocytes) > 1% indicates that a LEFT SHIFT is Present. Influenza virus A and B and SARS-CoV-2 (COVID-19) and Respiratory syncytial virus RNAOrdered By: John Brandon on 04-03-2025 SARS-CoV-2 (COVID-19) RNA ALICE+probe Ql (Unsp spec) [facility] International normalized rat io (INR) calculationOrdered By: Dyana Hwang on 04-03-2025 INR Coag (Bld) [Relative time] 1.0 {INR} [facility] L499.0042on 04-03-2025 Trop T High Sen Normal <=22 [facility] Comment on above: Result Comment: Canc elled via OM: Duplicate Order Performed By: #### L 499.0042 ####[facility] [address] [place], [place], [address] Trop T High Sen 76 ng/L Invalid Interpretation Code <=22 [facility] Comment on above: Result Comment: Crit ical Result(s) Called at:0312 by:??DASIA SHRESTHAN TO HARLEY Results read back by same. Performed By: #### L 499.0042 ####[facility] [address] [place], [place], [address] L499.0043on 04-03-2025 Trop T High Sen Normal <=22 [facility] Comment on above: Result Comment: Canc elled via OM: Duplicate Order Performed By: #### L 499.0043 ####[facility] [address] [place], [place], [address] Trop T High Sen 80 ng/L Invalid Interpretation Code <=22 [facility] Comment on above: Result Comment: Crit ical Result(s) Called at: 0515 by: DASIA JOSEPH??Results read back by same. Performed By: #### L 499.0043 ####[facility] [address] [place], [address] L501.4021on 04-03-2025 Trop T High Sen 58 ng/L Invalid Interpretation Code <=22 [facility] Comment on above: Result Comment: Crit ical Result(s) Called at: 0058 by: DASIA ALBRIGHT??Results read back by same. Performed By: #### L 503.7505, L501.4021 ####[facility] [address] [place], [address] L503.7505on 04-03-2025 Natriuretic peptide B (Bld) [Mass/Vol] 6552 pg/mL High <=1800 [facility] Comment on above: Result Comment: Hear t Failure Unlikely: < 300 pg/mLHeart Failure Likely< 50 Years: > 450 pg/mL50-75 Years: > 900 pg/mL>75 Years: > 1800 pg/mL Performed By: #### L 503.7505, L501.4021 ####[facility] [address] [place], [address] L509.7001on 04-03-2025 Procalcitonin 0.31 ng/mL High <=0.10 [facility] Comment on above: Result Comment: Inte rpretation:<0.10-0.25 [...] By: #### L 500.4050, L501.9520, L509.7001, L500.4100 ####[facility] [address] [place], [address] LDL calc ser/plasOrdered By: Dyana Hwang on 04-03-2025 Cholesterol in LDL [Mass/Vol] 80 mg/dL [facility] Comment on above: Xlbadljoxi=660-342 m g/dL & Higher Okil=744 mg/dL or greater Laboratory - Chemistry and C hemistry - challengeOrdered By: Dyana Hwang on 04-03-2025 AST [Catalytic activity/Vol] 24 U/L <38 [facility] Lactic Acidon 04-03-2025 Lactate [Moles/Vol] 1.3 mmol/L Normal 0.0-2.0 [facility] Comment on above: Order Comment: Y Performed By: #### L 503.6005, M200.1000 ####[facility] [address] [place], [address] Lactic acid measurementOrder ed By: John Brandon on 04-03-2025 Lactate [Moles/Vol] 1.3 mmol/L 0.0-2.0 [facility] Legionella Antigen Urineon 0 04-03-2025 LEGU Normal [facility] Comment on above: Performed By: #### M 300.4500 ####[facility] [address] [place], [address] Lipid Profileon 04-03-2025 CHOL:HDL 2.87 Normal [facility] Comment on above: Performed By: #### L 500.4050, L501.9520, L509.7001, L500.4100 ####[facility] [address] [place], [address] Cholesterol [Mass/Vol] 137 mg/dL Normal <=200 [facility] Comment on above: Result Comment: Chol esterol level, Desirable <200 mg/dLBorderline high cholesterol 200-239 mg/dLHigh cholesterol >=240 mg/dLRecommendations of the NCEP Adult Treatment Panel for thefollowing risk-cutoff thresholds for the [place] Americanpulation. Performed By: #### L 500.4050, L501.9520, L509.7001, L500.4100 ####[facility] [address] [place], [address] Cholesterol in HDL [Mass/Vol] 48 mg/dL Normal [facility] Comment on above: Result Comment: Anastacia onal Cholesterol Education Program (NCEP) guidelines:<40 mg/dL: Low HDL-cholesterol (major risk factor for CHD)>= 60 mg/dL: High HDL-cholesterol (negative risk factor forCHD)HDL-cholesterol is affected by a number of factors, e.g.smoking, exercise, hormones, sex and age. Performed By: #### L 500.4050, L501.9520, L509.7001, L500.4100 ####[facility] [address] [place], [address] Cholesterol in LDL [Mass/Vol] 80 mg/dL Normal [facility] Comment on above: Result Comment: Bord lzjwtp=917-098 mg/dL Higher Ycbz=891 mg/dL or greater Performed By: #### L 500.4050, L501.9520, L509.7001, L500.4100 ####[facility] [address] [place], [address] Cholesterol in VLDL [Mass/Vol] 9 mg/dL Normal 5-40 [facility] Comment on above: Performed By: #### L 500.4050, L501.9520, L509.7001, L500.4100 ####[facility] [address] [place], [address] Triglyceride [Mass/Vol] 44 mg/dL Normal [facility] Comment on above: Result Comment: The drugs N-Acetylcysteine and Metamizole may falselydepress this assay.Normal range: <150 mg/dLBorderline High: 150-199 mg/dLHigh: 200-499 mg/dLVery High: >500 mg/dL Performed By: #### L 500.4050, L501.9520, L509.7001, L500.4100 ####[facility] [address] [place], [address] M100.678on 04-03-2025 M100.678 SARS-CoV-2 (COVID 19) Negative INFLUENZA A Negative INFLUENZA B Negative RSV PCR Negative Normal [facility] Comment on above: Performed By: #### M 100.678 ####[facility] [address] [place], [address] M8200.1075on 04-03-2025 M8200.1075 Pending MRSA PCR MRSA NEGATIVE STAPH. AUREUS PCR STAPH. AUREUS NEGATIVE Normal [facility] Comment on above: Performed By: #### M 8200.1075 ####[facility] [address] [place], [address] MCV (mean corpuscular volume ) determinationOrdered By: John Brandon on 04-03-2025 MCV (RBC) [Entitic vol] 94.4 fL High 80-94 [facility] Magnesiumon 04-03-2025 Magnesium [Mass/Vol] 2.3 mg/dL High 1.5-2.2 [facility] Comment on above: Order Comment: Comme nts: may add to ED labs Performed By: #### L 300.3900, L501.5200, L300.4310 ####[facility] [address] [place], [address] Magnesium measurement (mass/ volume)Ordered By: Dyana Hwang on 04-03-2025 Magnesium (Unsp spec) [Mass/Vol] 2.3 mg/dL High 1.5-2.2 [facility] Mean corpuscular hemoglobin (MCH) determinationOrdered By: John Brandon on 04-03-2025 MCH (RBC) [Entitic mass] 29.9 pg 27.0-32.0 [facility] Mean corpuscular hemoglobin concentration (MCHC) determinationOrdered By: John Brandon on 04-03-2025 MCHC (RBC) [Mass/Vol] 31.7 g/dL Low 32-36 [facility] Mean platelet volume determi nationOrdered By: John Brandon on 04-03-2025 Platelet mean volume (Bld) [Entitic vol] 10.8 fL 6.2-12.0 [facility] Measurement, pHOrdered By: Anabelle Hawng on 04-03-2025 pH (Unsp spec) 7.38 [pH] 7.35-7.45 [facility] Monocyte percentageOrdered B y: John Brandon on 04-03-2025 Monocytes/100 WBC (Bld) 7.0 % 0-10 [facility] Natriuretic peptide.B prohor katja N-Terminal [Mass/volume] in Serum or PlasmaOrdered By: John Brandon on 04-03-2025 Natriuretic peptide.B prohormone N-Terminal [Mass/Vol] 6552 pg/mL High <1800 [facility] Comment on above: Heart Failure Unlike ly: < 300 pg/mLHeart Failure Likely< 50 Years: > 450 pg/mL50-75 Years: > 900 pg/mL>75 Years: > 1800 pg/mL Neutrophil percentageOrdered By: John Brandon on 04-03-2025 Neutrophils/100 WBC (Bld) 76.4 % High 47-70 [facility] No Panel InformationOrdered By: Dyana Hwang on 04-03-2025 Bedside Blood Gas PEEP 10 [facility] Bld Gas Peak Inspiratory Pressure 18 [facility] Blood Gas Respiration Rate 12 [facility] Blood Gas Sample Site R Radial [facility] Blood Gas Specimen Type ART [facility] Blood Gas Vent Mode Not entered [facility] Oxygen Delivery Device BiPAP [facility] No Panel InformationOrdered By: John Brandon on 04-03-2025 Blood Gas Clinical Comments 18. 10. 30% [facility] Nucleated red blood cell per centageOrdered By: John Brandon on 04-03-2025 Nucleated RBC/100 WBC (Bld) [Ratio] 0 % 0-5 [facility] Partial Thromboplast Timeon 04-03-2025 aPTT Coag (Bld) [Time] 212.0 s Invalid Interpretation Code 24.1-36.2 [facility] Comment on above: Result Comment: CRIT ICAL VALUE CALLED TO Carol CORONA04/03/25 1243 Ness Huang.RESULTS READ BACK BY SAME. Performed By: #### L 300.4310 ####[facility] [address] [place], [address] aPTT Coag (Bld) [Time] 37.3 s High 24.1-36.2 [facility] Comment on above: Performed By: #### L 300.3900, L501.5200, L300.4310 ####[facility] [address] [place], [address] Platelet countOrdered By: Shabbir Brandon on 04-03-2025 Platelets (Bld) [#/Vol] 300 10*3/uL 150-450 [facility] Potassium measurement (mass/ volume)Ordered By: John Brandon on 04-03-2025 Potassium (Unsp spec) [Mass/Vol] 4.4 mmol/L 3.3-5.1 [facility] Procalcitonin [Mass/volume] in Serum or Plasma by ImmunoassayOrdered By: Dyana Hwang on 04-03-2025 Procalcitonin IA [Mass/Vol] 0.31 ng/mL High <0.11 [facility] Comment on above: Interpretation:<0.10 -0.25 ng/mL: Antibiotic [...] Coag (PPP) [Relative time] 1.0 {INR} Normal [facility] Comment on above: Performed By: #### L 300.3900, L501.5200, L300.4310 ####[facility] [address] [place], [address] PT Coag (PPP) [Time] 13.4 s Normal 11.7-14.9 [facility] Comment on above: Performed By: #### L 300.3900, L501.5200, L300.4310 ####[facility] [address] [place], [address] Prothrombin timeOrdered By: Dyana Hwang on 04-03-2025 PT Coag (PPP) [Time] 13.4 s 11.7-14.9 [facility] RBC Auto (Bld) [#/Vol]Ordere d By: John Brandon on 04-03-2025 RBC (Bld) [#/Vol] 3.41 10*6/uL Low 4.6-6.2 [facility] RESPIRATORY PANEL MOLECULARo n 04-03-2025 RP PANEL Normal [facility] Comment on above: Performed By: #### M 100.638 ####[facility] [address] [place], [address] Respiratory pathogens detect ion panel by molecular detection methodOrdered By: Dyana Hwang on 04-03-2025 Respiratory pathogens DNA and RNA panel ALICE+probe (Resp) [facility] Screening total cholesterol/ high density lipoprotein (HDL) cholesterol ratioOrdered By: Dyana Hwang on 04-03-2025 Cholesterol.total/Cholest santos in HDL [Mass ratio] 2.87 {ratio} [facility] Serum creatinine measurement (mass/volume)Ordered By: John Brandon on 04-03-2025 Creatinine [Mass/Vol] 1.88 mg/dL High 0.70-1.20 [facility] Serum globulin measurementOr dered By: Dyana Hwang on 04-03-2025 Globulin (S) [Mass/Vol] 2.4 g/dL 2.2-4.2 [facility] Serum glucose measurement (m ass/volume)Ordered By: John Brandon on 04-03-2025 Glucose [Mass/Vol] 255 mg/dL High 70-99 [facility] Serum or plasma alanine clayton otransferase (ALT) measurementOrdered By: Dyana Hwang on 04-03-2025 ALT [Catalytic activity/Vol] 16 U/L <47 [facility] Serum or plasma albumin nikkie urement (mass/volume)Ordered By: Dyana Hwang on 04-03-2025 Albumin [Mass/Vol] 3.6 g/dL 3.4-4.8 [facility] Serum or plasma albumin/glob ulin mass ratioOrdered By: Dyana Hwang on 04-03-2025 Albumin/Globulin [Mass ratio] 1.5 {ratio} 0.9-2.4 [facility] Serum or plasma alkaline dwight sphatase measurementOrdered By: Dyana Hwang on 04-03-2025 ALP [Catalytic activity/Vol] 80 U/L 40-129 [facility] Serum or plasma calcium nikkie urement (mass/volume)Ordered By: John Brandon on 04-03-2025 Calcium [Mass/Vol] 8.8 mg/dL 7.6-11.0 [facility] Serum or plasma cholesterol in HDL measurement (mass/volume)Ordered By: Dyana Hwang on 04-03-2025 Cholesterol in HDL [Mass/Vol] 48 mg/dL >40 [facility] Comment on above: National Cholesterol Education Program (NCEP) guidelines:<40 mg/dL: Low HDL-cholesterol (major risk factor for CHD)>= 60 mg/dL: High HDL-cholesterol (negative risk factor for CHD)HDL-cholesterol is affected by a number of factors, e.g. smoking, exercise, hormones, sex and age. Serum or plasma cholesterol measurement (mass/volume)Ordered By: Dyana Hwang on 04-03-2025 Cholesterol [Mass/Vol] 137 mg/dL <201 [facility] Comment on above: Cholesterol level, D esirable <200 mg/dLBorderline high cholesterol 200-239 mg/dLHigh cholesterol >=240 mg/dLRecommendations of the NCEP Adult Treatment Panel for the following risk-cutoff thresholds for the [place] population. Serum or plasma urea nitroge n measurement (mass/volume)Ordered By: John Brandon on 04-03-2025 Urea nitrogen [Mass/Vol] 42 mg/dL High 4-19 [facility] Sodium levelOrdered By: Lesley Brandon on 04-03-2025 Sodium [Moles/Vol] 139 mmol/L 133-145 [facility] Strep pneumoniae Antig(UR,CS F)on 04-03-2025 STPAG Normal [facility] Comment on above: Performed By: #### M 300.4600 ####[facility] [address] [place], [place], [address] TSH DL <= 0.005 mIU/L QnOrde red By: Dyana Hwang on 04-03-2025 TSH Qn 0.530 uIU/mL 0.300-4.200 [facility] Thyroid Stim Hormone (TSH)on 04-03-2025 TSH 0.530 uIU/mL Normal 0.300-4.200 [facility] Comment on above: Performed By: #### L 500.4050, L501.9520, L509.7001, L500.4100 ####[facility] [address] [place], [place], [address] Total carbon dioxide measure mentOrdered By: Dyana Hwang on 04-03-2025 CO2 [Moles/Vol] 18 mmol/L [facility] Total proteinOrdered By: Aut eleanor Hwang on 04-03-2025 Protein [Mass/Vol] 6.0 g/dL 5.9-8.4 [facility] Triglycerides measurementOrd ered By: Dyana Hwang on 04-03-2025 Triglyceride [Mass/Vol] 44 mg/dL <199 [facility] Comment on above: The drugs N-Acetylcy steine and Metamizole may falsely depress this assay. Normal range: <150 mg/dLBorderline High: 150-199 mg/dLHigh: 200-499 mg/dLVery High: >500 mg/dL Troponin T.cardiac [Mass/vol ume] in Serum or Plasma by High sensitivity methodOrdered By: John Brandon on 04-03-2025 Troponin T.cardiac High sensitivity method [Mass/Vol] 80 ng/L High <22 [facility] Comment on above: Critical Result(s) C alled at: 0515 by: DASIA JOSEPH Results read back by same. Troponin T.cardiac High sensitivity method [Mass/Vol] 76 ng/L High <22 [facility] Comment on above: Critical Result(s) C alled at:0312 by: DSAIA BOJORQUEZ Results read back by same. Troponin T.cardiac High sensitivity method [Mass/Vol] 58 ng/L High <22 [facility] Comment on above: Critical Result(s) C alled at: 0058 by: DASIA MOYA TO DELFIN ALBRIGHT Results read back by same. Urine Legionella pneumophila antigen detectionOrdered By: Dyana Hwang on 04-03-2025 L. pneumophila Ag Ql (U) [facility] Urine cultureOrdered By: Cesilia Hwang on 04-03-2025 Bacteria identified Cx Nom (U) Culture exhibits no growth. [facility] Venous Blood Gason 5 Blood Gas Type JUANITA Normal [facility] Comment on above: Performed By: #### L 9000.0810 ####[facility] [address] [place], [place], [address] CO2 [Moles/Vol] 27 mmol/L Normal 23-33 [facility] Comment on above: Performed By: #### L 9000.0810 ####[facility] [address] [place], [place], [address] Comment 18. 10. 30% Normal [facility] Comment on above: Performed By: #### L 9000.0810 ####[facility] [address] [place], [address] FI02 30.0 Normal [facility] Comment on above: Performed By: #### L 9000.0810 ####[facility] [address] [place], [place], [address] HCO3 (Bld) [Moles/Vol] 26 mmol/L Normal 22-26 [facility] Comment on above: Performed By: #### L 9000.0810 ####[facility] [address] [place], [address] O2 Delivery Dev BiPAP Normal [facility] Comment on above: Performed By: #### L 9000.0810 ####[facility] [address] [place], [address] SITE Not entered Normal [facility] Comment on above: Performed By: #### L 9000.0810 ####[facility] [address] [place], [address] VBG BE 0 mmol/L Normal -1.0-3.5 [facility] Comment on above: Performed By: #### L 9000.0810 ####[facility] [address] [place], [address] VBG pCO2 46.6 mmHg Normal 41-51 [facility] Comment on above: Performed By: #### L 9000.0810 ####[facility] [address] [place], [address] VBG pH 7.35 Normal 7.32-7.42 [facility] Comment on above: Performed By: #### L 9000.0810 ####[facility] [address] [place], [address] VBG PO2 44 mmHg High 25-40 [facility] Comment on above: Performed By: #### L 9000.0810 ####[facility] [address] [place], [address] VBG SO2 76 High 50-70 [facility] Comment on above: Performed By: #### L 9000.0810 ####[facility] [address] [place], [address] Venous blood base excess heriberto surementOrdered By: John Brandon on 04-03-2025 Base excess Calc (BldV) [Moles/Vol] 0 mmol/L -1.0-3.5 [facility] Venous blood bicarbonate heriberto surementOrdered By: John Brandon on 04-03-2025 HCO3 (Bld) [Moles/Vol] 26 mmol/L 22-26 [facility] Venous blood oxygen saturati on measurementOrdered By: John Brandon on 04-03-2025 Oxygen saturation in Blood 76 % High 50-70 [facility] Venous blood pH measurementO rdered By: John Brandon on 04-03-2025 pH (BldV) 7.35 [pH] 7.32-7.42 [facility] Venous blood partial pressur e of carbon dioxide measurementOrdered By: John Brandon on 04-03-2025 CO2 (BldV) [Partial pressure] 46.6 mm[Hg] 41-51 [facility] Venous blood partial pressur e of oxygen measurementOrdered By: John Brandon on 04-03-2025 Oxygen (BldV) [Partial pressure] 44 mm[Hg] High 25-40 [facility] White blood cell (WBC) count Ordered By: John Brandon on 04-03-2025 WBC (Bld) [#/Vol] 15.7 10*3/uL High 4.4-11.0 [facility] BASIC METABOLIC PANEL WITH A NION GAPon 03-24-2025 Calcium [Mass/Vol] 8.6 mg/dL Normal 8.6-10.3 [facility] Comment on above: Performed By: #### 9 2285 #### [facility] [address], [address] [place] [address] Flumer: Jadon Velez MD Chloride [Moles/Vol] 104 mmol/L Normal 98-110 [facility] Comment on above: Performed By: #### 9 7612 #### [facility] [address], [address] [place], [place] [id number] Flumer: Jadon Velez MD CO2 [Moles/Vol] 23 mmol/L Normal 20-32 [facility] Comment on above: Performed By: #### 9 2498 #### [facility] [address], [address] [place] [address] Flumer: Jadon Velez MD Creatinine [Mass/Vol] 1.96 mg/dL High 0.70-1.[address] [facility] Comment on above: Performed By: #### 9 2498 #### [facility] [address], [address] [place] [address] Flumer: Jadon Velez MD ELECTROLYTE BALANCE 11 mmol/L (calc) Normal 7-17 [facility] Comment on above: Performed By: #### 9 2498 #### [facility] [place] [address] Flumer: Jadon Velez MD GFR/1.73 sq M.predicted among non-blacks MDRD (S/P/Bld) [Vol rate/Area] 34 mL/min/{1.73_m2} Low > OR = 60 [facility] Comment on above: Performed By: #### 9 2498 #### [facility] [address], [address] [place] [address] Flumer: Jadon Velez MD Glucose [Mass/Vol] 301 mg/dL High 65-99 [facility] Comment on above: Result Comment: Fasting reference interval For someone without known diabetes, a glucose value >125 mg/dL indicates that they may have diabetes and this should be confirmed with a follow-up test. Performed By: #### 9 2498 #### [facility] [address], [address] [place] [address] Flumer: Jadon Velez MD Potassium [Moles/Vol] 4.2 mmol/L Normal 3.5-5.[address] [facility] Comment on above: Performed By: #### 9 2498 #### [facility] [address], [address] [place] [address] Flumer: Jadon Velez MD Sodium [Moles/Vol] 138 mmol/L Normal 135-146 [facility] Comment on above: Performed By: #### 9 2498 #### [facility] [address] [place] [address], [address] [place] [id number] Flumer: Jadon Velez MD Urea nitrogen [Mass/Vol] 39 mg/dL High 7-25 [facility] Comment on above: Performed By: #### 9 2498 #### [facility] of [address], [address] [place] [id number] Flumer: Jadon Velez MD Urea nitrogen/Creatinine [Mass ratio] 20 mg/mg Normal 6- [facility] Comment on above: Performed By: #### 9 2498 #### [facility] of [address], [address] Flumer: Jadon Velez MD APTT HEPARIN COVERAGEon aPTT Coag (Bld) [Time] 86 s High 23-34 [facility] Comment on above: Order Comment: Thera peutic range for APTT's is 68 - 104 seconds Performed By: #### 4 6848 ####[facility] [address] [place] [address] Moody Martinez M.D. 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 Performed By: #### 4 6124 #### LAB [address] [place], [place] [address] Moody Martinez M.D. 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 [id number] CBCon 03-05-2025 AUTO NRBC 0.0 % Normal [facility] Comment on above: Performed By: #### 4 5218 #### LAB [address] [place] [address] Moody Martinez M.D. [id number] AUTO NRBC ABS COUNT 0.00 K/mcL Normal 0.00-0.00 [facility] [place] [facility] Comment on above: Performed By: #### 4 5218 #### LAB [address] [place] [address] Moody Martinez M.D. [id number] Erythrocyte distribution width (RBC) [Ratio] 13.0 % Normal 11.6-14.8 [facility] Comment on above: Performed By: #### 4 5218 #### LAB [address] [place] [address] Moody Martinez M.D. [id number] Hematocrit (Bld) [Volume fraction] 28.4 % Low 41.0-53.0 [facility] Comment on above: Performed By: #### 4 5218 #### LAB [address] [place] [address] Moody Martinez M.D. [id number] Hemoglobin (Bld) [Mass/Vol] 9.3 g/dL Low 13.5-17.5 [facility] Comment on above: Performed By: #### 4 5218 #### LAB [address] [place] [address] Moody Martinez M.D. [id number] MCH (RBC) [Entitic mass] 30.3 pg Normal 26.0-34.0 [facility] Comment on above: Performed By: #### 4 5218 #### LAB [address] [place] [address] Moody Martinez M.D. [id number] MCV (RBC) [Entitic vol] 92.5 fL Normal 80.0-100.0 [facility] Comment on above: Performed By: #### 4 5218 #### LAB [address] [place] [address] Moody Martinez M.D. [id number] MEAN CORPUSCULAR HEMOGLOBIN CONC 32.7 g/dL Normal 31.0-37.0 [facility] Comment on above: Performed By: #### 4 5218 #### LAB [address] [place] [address] Moody Martinez M.D. [id number] Platelet mean volume (Bld) [Entitic vol] 11.8 fL Normal 9.4-12.4 [facility] Comment on above: Performed By: #### 4 5218 #### LAB [address] [place] [address] Moody Martinez M.D. [id number] Platelets (Bld) [#/Vol] 191 10*3/uL Normal 150-400 [facility] Comment on above: Performed By: #### 4 5218 #### LAB [address] [place] [address] Moody Martinez M.D. [id number] RBC (Bld) [#/Vol] 3.07 10*6/uL Low 4.50-5.90 [facility] [place] [facility] Comment on above: Performed By: #### 4 5218 #### LAB [address] [place] [address] Moody Martinez M.D. [id number] WBC (Bld) [#/Vol] 9.14 10*3/uL Normal 4.50-11.00 [facility] [place] [facility] Comment on above: Performed By: #### 4 5218 #### LAB [address] [place] [address] Moody Martinez M.D. [id number] MAGNESIUM LEVELon 03-05-2025 Magnesium [Mass/Vol] 2.2 mg/dL Normal 1.6-2.4 [facility] Comment on above: Performed By: #### 4 6109 #### LAB [address] [place] [address] Moody Martinez M.D. [id number] POC GLUCOSE - [facility] 025 Glucose [Mass/Vol] 249 mg/dL High [address] [place] [address] Comment on above: Performed By: #### 4 6932 #### LAB [address] [place] [address] Moody Martinez M.D. [id number] Glucose [Mass/Vol] 188 mg/dL [address] Comment on above: Performed By: #### 4 6932 #### [facility] [address] [place] [address] Moody Martinez M.D. [id number] Glucose [Mass/Vol] 115 mg/dL [address] Comment on above: Performed By: #### 4 6932 #### LAB [address] [place] [address] Moody Martinez M.D. [id number] POTASSIUM LEVELon 03-05-2025 Potassium [Moles/Vol] 3.4 mmol/L Low 3.5-5.1 [facility] Comment on above: Performed By: #### 4 6351 #### LAB [address] [place] [address] Moody Martinez M.D. [id number] APTT HEPARIN COVERAGEon aPTT Coag (Bld) [Time] 72 s High 23-34 [facility] Comment on above: Order Comment: Thera peutic range for APTT's is 68 - 104 seconds Performed By: #### 4 4014 #### LAB [address] [place], [place] [address] Moody Martinez M.D. [id number] BASIC METABOLIC PANELon 05-0 Anion gap [Moles/Vol] 16 mmol/L Normal 10-20 [facility] Comment on above: Order Comment: [facility] has implemented the eGFR calculation approach that does not have a coefficient for race that conforms to the NKF-ASN Task Force Recommendations. Performed By: #### 4 6124 #### LAB [address] [place] [address] Moody Martinez M.D. [id number] Calcium [Mass/Vol] 8.3 mg/dL Low 8.4-10.2 [facility] Comment on above: Order Comment: [facility] has implemented the eGFR calculation approach that does not have a coefficient for race that conforms to the NKF-ASN Task Force Recommendations. Performed By: #### 4 6124 #### [facility] [address] [place] [address] Moody Martinez M.D. [id number] Chloride [Moles/Vol] 103 mmol/L Normal 98-108 [facility] Comment on above: Order Comment: [facility] has implemented the eGFR calculation approach that does not have a coefficient for race that conforms to the NKF-ASN Task Force Recommendations. Performed By: #### 4 6124 #### LAB [address] [place] [address] Moody Martinez M.D. [id number] Creatinine [Mass/Vol] 1.89 mg/dL High 0.80-1.30 [facility] Comment on above: Order Comment: [facility] has implemented the eGFR calculation approach that does not have a coefficient for race that conforms to the NKF-ASN Task Force Recommendations. Performed By: #### 4 6124 #### LAB [address] [place] [address] Moody Martinez M.D. [id number] EGFR 35 mL/min/1.73 m2 Low >=60 [facility] Comment on above: Order Comment: [facility] has implemented the eGFR calculation approach that does not have a coefficient for race that conforms to the NKF-ASN Task Force Recommendations. Result Comment: Albin mated GFR was calculated using the 2020 CKD-EPI creatinine equation. Performed By: #### 4 6124 ####[facility] [address] [place] [address] Moody Martinez M.D. [id number] Glucose [Mass/Vol] 190 mg/dL High 65-99 [facility] Comment on above: Order Comment: [facility] has implemented the eGFR calculation approach that does not have a coefficient for race that conforms to the NKF-ASN Task Force Recommendations. Performed By: #### 4 6124 #### LAB [address] [place] [address] Moody Martinez M.D. [id number] HCO3 (Bld) [Moles/Vol] 25 mmol/L Normal 21-32 [facility] Comment on above: Order Comment: [facility] has implemented the eGFR calculation approach that does not have a coefficient for race that conforms to the NKF-ASN Task Force Recommendations. Performed By: #### 4 6178 #### LAB [address] [place] [address] Moody Martinez M.D. [id number] Potassium [Moles/Vol] 3.5 mmol/L Normal 3.5-5.1 [facility] Comment on above: Order Comment: [facility] has implemented the eGFR calculation approach that does not have a coefficient for race that conforms to the NKF-ASN Task Force Recommendations. Performed By: #### 4 6153 ####[facility] [address] [place] [address] Moody Martinez M.D. [id number] Sodium [Moles/Vol] 140 mmol/L Normal 135-145 [facility] Comment on above: Order Comment: [facility] has implemented the eGFR calculation approach that does not have a coefficient for race that conforms to the NKF-ASN Task Force Recommendations. Performed By: #### 4 6124 #### LAB [address] [place] [address] Moody Martinez M.D. [id number] Urea nitrogen [Mass/Vol] 45 mg/dL High 8-25 [facility] Comment on above: Order Comment: [facility] has implemented the eGFR calculation approach that does not have a coefficient for race that conforms to the NKF-ASN Task Force Recommendations. Performed By: #### 4 6124 #### LAB [address] [place] [address] Moody Martinez M.D. [id number] Urea nitrogen/Creatinine [Mass ratio] 23.8 mg/mg High 10.0-20.0 [facility] Comment on above: Order Comment: [facility] has implemented the eGFR calculation approach that does not have a coefficient for race that conforms to the NKF-ASN Task Force Recommendations. Performed By: #### 4 6124 #### LAB [address] [place] [address] Moody Martinez M.D. [id number] CBCon 03-04-2025 AUTO NRBC 0.0 % Normal [facility] Comment on above: Performed By: #### 4 5218 #### LAB [address] [place] [address] Moody Martinez M.D. [id number] AUTO NRBC ABS COUNT 0.00 K/mcL Normal 0.00-0.00 [facility] [place] [facility] Comment on above: Performed By: #### 4 5218 #### LAB [address] [place] [address] Moody Martinez M.D. [id number] Erythrocyte distribution width (RBC) [Ratio] 13.1 % Normal 11.6-14.8 [facility] Comment on above: Performed By: #### 4 5218 #### LAB [address] [place] [address] Moody Martinez M.D. [id number] Hematocrit (Bld) [Volume fraction] 28.1 % Low 41.0-53.0 [facility] Comment on above: Performed By: #### 4 5218 #### LAB [address] [place] [address] Moody Martinez M.D. [id number] Hemoglobin (Bld) [Mass/Vol] 9.0 g/dL Low 13.5-17.5 [facility] Comment on above: Performed By: #### 4 5218 #### LAB [address] [place] [address] Moody Martinez M.D. [id number] MCH (RBC) [Entitic mass] 30.6 pg Normal 26.0-34.0 [facility] Comment on above: Performed By: #### 4 5218 #### LAB [address] [place] [address] Moody Martinez M.D. [id number] MCV (RBC) [Entitic vol] 95.6 fL Normal 80.0-100.0 [facility] Comment on above: Performed By: #### 4 5218 #### LAB [address] [place] [address] Moody Martinez M.D. [id number] MEAN CORPUSCULAR HEMOGLOBIN CONC 32.0 g/dL Normal 31.0-37.0 [facility] Comment on above: Performed By: #### 4 5218 #### LAB [address] [place] [address] Moody Martinez M.D. [id number] Platelet mean volume (Bld) [Entitic vol] 11.8 fL Normal 9.4-12.4 [facility] Comment on above: Performed By: #### 4 5218 #### LAB [address] [place] [address] Moody Martinez M.D. [id number] Platelets (Bld) [#/Vol] 175 10*3/uL Normal 150-400 [facility] Comment on above: Performed By: #### 4 5218 #### LAB [address] [place] [address] Moody Martinez M.D. [id number] RBC (Bld) [#/Vol] 2.94 10*6/uL Low 4.50-5.90 [facility] [place] [facility] Comment on above: Performed By: #### 4 5218 #### LAB [address] [place] [address] Moody Martinez M.D. [id number] WBC (Bld) [#/Vol] 8.08 10*3/uL Normal 4.50-11.00 [facility] [place] [facility] Comment on above: Performed By: #### 4 5218 #### LAB [address] [place] [address] Moody Martinez M.D. [id number] MAGNESIUM LEVELon 03-04-2025 Magnesium [Mass/Vol] 2.2 mg/dL Normal 1.6-2.4 [facility] Comment on above: Performed By: #### 4 6109 #### LAB [address] [place] [address] Moody Martinez M.D. [id number] POC GLUCOSE - [facility] 025 Glucose [Mass/Vol] 51 mg/dL Off scale low [address] [place] [address] Comment on above: Order Comment: Criti christian result acted upon time of test. Test performed at bedside. Performed By: #### 4 6994 #### LAB [address] [place] [address] Moody Martinez M.D. [id number] Glucose [Mass/Vol] 354 mg/dL [address] Comment on above: Performed By: #### 4 6957 #### LAB [address] [place] [address] Moody Martinez M.D. [id number] Glucose [Mass/Vol] 338 mg/dL [address] Comment on above: Performed By: #### 4 6926 #### LAB [address] [place] [address] Moody Martinez M.D. [id number] Glucose [Mass/Vol] 258 mg/dL [address] Comment on above: Performed By: #### 4 2654 ####[facility] [address] [place] [address] Moody Maritnez M.D. [id number] Glucose [Mass/Vol] 242 mg/dL High 65-99 [facility] Comment on above: Performed By: #### 4 6932 ####[facility] [address] [place] [address] Moody Martinez M.D. [id number] POTASSIUM LEVELon 03-04-2025 Potassium [Moles/Vol] 4.1 mmol/L Normal 3.5-5.1 [facility] Comment on above: Result Comment: Slig htly Hemolyzed Performed By: #### 4 6351 #### LAB [address] [place] [address] Moody Martinez M.D. [id number] TROPONIN (ONCE)on 03-04-2025 BASELINE TROPONIN T NG/L 1494 ng/L Off scale high <=22 [facility] Comment on above: Performed By: #### L [id number] ####[facility] [address] [place] [address] Moody Martinez M.D. [id number] TROPONIN T INTERPRETATION Possible acute cardiac injury. Normal [facility] Comment on above: Performed By: #### L [id number] ####[facility] [address] [place] [address] Moody Martinez M.D. [id number] APTT HEPARIN COVERAGEon 05-0 aPTT Coag (Bld) [Time] 82 s High 23-34 [facility] Comment on above: Order Comment: Thera peutic range for APTT's is 68 - 104 seconds Performed By: #### 4 6932 #### [facility] [address] [place] [address] Moody Martinez M.D. [id number] aPTT Coag (Bld) [Time] 92 s High 23-34 [facility] Comment on above: Order Comment: Thera peutic range for APTT's is 68 - 104 seconds Performed By: #### 4 6848 ####[facility] [address] [place] [address] Moody Martinez M.D. 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 [id number] BASIC METABOLIC PANELon 05-0 Anion gap [Moles/Vol] 15 mmol/L Normal 10-20 [facility] Comment on above: Order Comment: [facility] has implemented the eGFR calculation approach that does not have a coefficient for race that conforms to the NKF-ASN Task Force Recommendations. Performed By: #### 4 6124 #### LAB [address] [place] [address] Moody Martinez M.D. [id number] Calcium [Mass/Vol] 8.3 mg/dL Low 8.4-10.2 [facility] Comment on above: Order Comment: [facility] has implemented the eGFR calculation approach that does not have a coefficient for race that conforms to the NKF-ASN Task Force Recommendations. Performed By: #### 4 6124 #### [facility] [address] [place] [address] Moody Martinez M.D. [id number] Chloride [Moles/Vol] 103 mmol/L Normal 98-108 [facility] Comment on above: Order Comment: [facility] has implemented the eGFR calculation approach that does not have a coefficient for race that conforms to the NKF-ASN Task Force Recommendations. Performed By: #### 4 6124 #### LAB [address] [place] [address] Moody Martinez M.D. [id number] Creatinine [Mass/Vol] 2.09 mg/dL High 0.80-1.30 [facility] Comment on above: Order Comment: [facility] has implemented the eGFR calculation approach that does not have a coefficient for race that conforms to the NKF-ASN Task Force Recommendations. Performed By: #### 4 6171 #### LAB [address] [place] [address] Moody Martinez M.D. [id number] EGFR 31 mL/min/1.73 m2 Low >=60 [facility] Comment on above: Order Comment: [facility] has implemented the eGFR calculation approach that does not have a coefficient for race that conforms to the NKF-ASN Task Force Recommendations. Result Comment: Albin mated GFR was calculated using the 2020 CKD-EPI creatinine equation. Performed By: #### 4 6119 #### LAB [address] [place] [address] Moody Martinez M.D. [id number] Glucose [Mass/Vol] 240 mg/dL High 65-99 [facility] Comment on above: Order Comment: [facility] has implemented the eGFR calculation approach that does not have a coefficient for race that conforms to the NKF-ASN Task Force Recommendations. Performed By: #### 4 6194 #### LAB [address] [place] [address] Moody Martinez M.D. [id number] HCO3 (Bld) [Moles/Vol] 26 mmol/L Normal 21-32 [facility] Comment on above: Order Comment: [facility] has implemented the eGFR calculation approach that does not have a coefficient for race that conforms to the NKF-ASN Task Force Recommendations. Performed By: #### 4 6104 #### LAB [address] [place] [address] Moody Martinez M.D. [id number] Potassium [Moles/Vol] 3.6 mmol/L Normal 3.5-5.1 [facility] Comment on above: Order Comment: [facility] has implemented the eGFR calculation approach that does not have a coefficient for race that conforms to the NKF-ASN Task Force Recommendations. Performed By: #### 4 6154 #### LAB [address] [place] [address] Moody Martinez M.D. [id number] Sodium [Moles/Vol] 140 mmol/L Normal 135-145 [facility] Comment on above: Order Comment: [facility] has implemented the eGFR calculation approach that does not have a coefficient for race that conforms to the NKF-ASN Task Force Recommendations. Performed By: #### 4 6124 #### LAB [address] [place] [address] Moody Martinez M.D. [id number] Urea nitrogen [Mass/Vol] 49 mg/dL High 8-25 [facility] Comment on above: Order Comment: [facility] has implemented the eGFR calculation approach that does not have a coefficient for race that conforms to the NKF-ASN Task Force Recommendations. Performed By: #### 4 6124 #### LAB [address] [place] [address] Moody Martinez M.D. [id number] Urea nitrogen/Creatinine [Mass ratio] 23.4 mg/mg High 10.0-20.0 [facility] Comment on above: Order Comment: [facility] has implemented the eGFR calculation approach that does not have a coefficient for race that conforms to the NKF-ASN Task Force Recommendations. Performed By: #### 4 6124 #### LAB [address] [address] Moody Martinez M.D. [id number] CBCon 03-03-2025 AUTO NRBC 0.0 % Normal [facility] Comment on above: Performed By: #### 4 [id number] #### LAB [address] [id number] Moody Martinez M.D. [id number] AUTO NRBC ABS COUNT 0.00 K/mcL Normal 0.00-0.00 [facility] Comment on above: Performed By: #### 4 [id number] #### LAB [address] [address] Moody Martinez M.D. [id number] Erythrocyte distribution width (RBC) [Ratio] 13.5 % Normal 11.6-14.8 [facility] Comment on above: Performed By: #### 4 [id number] #### LAB [address] [address] Moody Martinez M.D. [id number] Hematocrit (Bld) [Volume fraction] 28.5 % Low 41.0-53.0 [facility] Comment on above: Performed By: #### 4 [id number] #### LAB [address] [address] Moody Martinez M.D. [id number] Hemoglobin (Bld) [Mass/Vol] 9.3 g/dL Low 13.5-17.5 [facility] Comment on above: Performed By: #### 4 [id number] #### LAB [address] [address] Moody Martinez M.D. [id number] MCH (RBC) [Entitic mass] 30.8 pg Normal 26.0-34.0 [facility] Comment on above: Performed By: #### 4 [id number] #### LAB [address] [address] Moody Martinez M.D. [id number] MCV (RBC) [Entitic vol] 94.4 fL Normal 80.0-100.0 [facility] Comment on above: Performed By: #### 4 [id number] #### LAB [address] [address] Moody Martinez M.D. [id number] MEAN CORPUSCULAR HEMOGLOBIN CONC 32.6 g/dL Normal 31.0-37.0 [facility] Comment on above: Performed By: #### 4 [id number] #### LAB [address] [address] Moody Martinez M.D. [id number] Platelet mean volume (Bld) [Entitic vol] 11.8 fL Normal 9.4-12.4 [facility] Comment on above: Performed By: #### 4 [id number] #### LAB [address] [address] Moody Martinez M.D. [id number] Platelets (Bld) [#/Vol] 159 10*3/uL Normal 150-400 [facility] Comment on above: Performed By: #### 4 [id number] #### LAB [address] [address] Moody Martinez M.D. [id number] RBC (Bld) [#/Vol] 3.02 10*6/uL Low 4.50-5.90 [facility] Comment on above: Performed By: #### 4 [id number] ####[facility] LAB [address] [address] Moody Martinez M.D. [id number] WBC (Bld) [#/Vol] 10.19 10*3/uL Normal 4.50-11.00 [facility] Comment on above: Performed By: #### 4 [id number] #### LAB [address] [address] Moody Martinez M.D. [id number] MAGNESIUM LEVELon 03-03-2025 Magnesium [Mass/Vol] 2.3 mg/dL Normal 1.6-2.4 [facility] Comment on above: Performed By: #### 4 6109 ####[facility] LAB [address] [address] Moody Martinez M.D. [id number] POC GLUCOSE [facility] 025 Glucose [Mass/Vol] 221 mg/dL High [address] [place] [address] Comment on above: Performed By: #### L [id number] #### [facility] LAB [address] [address] Moody Martinez M.D. [id number] Glucose [Mass/Vol] 189 mg/dL High [address] [place] [address] Comment on above: Performed By: #### 4 6932 ####[facility] LAB [address] [address] Moody Martinez M.D. [id number] Glucose [Mass/Vol] 91 mg/dL Normal [address] [place] [address] Comment on above: Performed By: #### 4 6932 ####[facility] LAB [address] [address] Moody Martinez M.D. [id number] Glucose [Mass/Vol] 146 mg/dL High 65-99 [facility] Comment on above: Performed By: #### 4 6932 ####[facility] LAB [address] [address] Moody Martinez M.D. [id number] TROPONIN (ONCE)on 03-03-2025 BASELINE TROPONIN T NG/L 1524 ng/L Off scale high <=22 [facility] Comment on above: Performed By: #### 4 6932 #### [facility] LAB [address] [address] Moody Martinez M.D. [id number] TROPONIN T INTERPRETATION Possible acute cardiac injury. Normal [facility] Comment on above: Performed By: #### 4 6932 #### LAB [address] [address] Moody Martinez M.D. [id number] APTT HEPARIN COVERAGEon aPTT Coag (Bld) [Time] 97 s High 23-34 [facility] Comment on above: Order Comment: Thera peutic range for APTT's is 68 - 104 seconds Performed By: #### 4 6848 ####[facility] LAB [address] [address] Moody Martinez M.D. [id number] BASIC METABOLIC PANELon Anion gap [Moles/Vol] 17 mmol/L Normal 10-20 [facility] Comment on above: Order Comment: [facility] has implemented the eGFR calculation approach that does not have a coefficient for race that conforms to the NKF-ASN Task Force Recommendations. Performed By: #### 4 6124 ####[facility] LAB [address] [address] Moody Martinez M.D. [id number] Calcium [Mass/Vol] 8.7 mg/dL Normal 8.4-10.2 [facility] Comment on above: Order Comment: [facility] has implemented the eGFR calculation approach that does not have a coefficient for race that conforms to the NKF-ASN Task Force Recommendations. Performed By: #### 4 6124 #### LAB [address] [address] Moody Martinez M.D. [id number] Chloride [Moles/Vol] 101 mmol/L Normal 98-108 [facility] Comment on above: Order Comment: [facility] has implemented the eGFR calculation approach that does not have a coefficient for race that conforms to the NKF-ASN Task Force Recommendations. Performed By: #### 4 6124 #### LAB [address] [address] Moody Martinez M.D. [id number] Creatinine [Mass/Vol] 2.16 mg/dL High 0.80-1.30 [facility] Comment on above: Order Comment: [facility] has implemented the eGFR calculation approach that does not have a coefficient for race that conforms to the NKF-ASN Task Force Recommendations. Performed By: #### 4 6124 #### LAB [address] [address] Moody Martinez M.D. [id number] EGFR 30 mL/min/1.73 m2 Low >=60 [facility] Comment on above: Order Comment: [facility] has implemented the eGFR calculation approach that does not have a coefficient for race that conforms to the NKF-ASN Task Force Recommendations. Result Comment: Albin mated GFR was calculated using the 2020 CKD-EPI creatinine equation. Performed By: #### 4 6124 ####[facility] LAB [address] [place], [place] [address] Moody Martinez M.D. [id number] Glucose [Mass/Vol] 170 mg/dL High 65-99 [facility] Comment on above: Order Comment: [facility] has implemented the eGFR calculation approach that does not have a coefficient for race that conforms to the NKF-ASN Task Force Recommendations. Performed By: #### 4 6124 #### LAB [address] [address] Moody Martinez M.D. [id number] HCO3 (Bld) [Moles/Vol] 25 mmol/L Normal 21-32 [facility] Comment on above: Order Comment: [facility] has implemented the eGFR calculation approach that does not have a coefficient for race that conforms to the NKF-ASN Task Force Recommendations. Performed By: #### 4 6124 #### LAB [address] [address] Moody Martinez M.D. [id number] Potassium [Moles/Vol] 3.7 mmol/L Normal 3.5-5.1 [facility] Comment on above: Order Comment: [facility] has implemented the eGFR calculation approach that does not have a coefficient for race that conforms to the NKF-ASN Task Force Recommendations. Performed By: #### 4 6124 #### LAB [address] [address] Moody Martinez M.D. [id number] Sodium [Moles/Vol] 139 mmol/L Normal 135-145 [facility] Comment on above: Order Comment: [facility] has implemented the eGFR calculation approach that does not have a coefficient for race that conforms to the NKF-ASN Task Force Recommendations. Performed By: #### 4 6124 #### LAB [address] [address] Moody Martinez M.D. [id number] Urea nitrogen [Mass/Vol] 44 mg/dL High 8-25 [facility] Comment on above: Order Comment: [facility] has implemented the eGFR calculation approach that does not have a coefficient for race that conforms to the NKF-ASN Task Force Recommendations. Performed By: #### 4 6187 #### LAB [address] [address] Moody Martinez M.D. [id number] Urea nitrogen/Creatinine [Mass ratio] 20.4 mg/mg High 10.0-20.0 [facility] Comment on above: Order Comment: [facility] has implemented the eGFR calculation approach that does not have a coefficient for race that conforms to the NKF-ASN Task Force Recommendations. Performed By: #### 4 6124 #### LAB [address] [address] Moody Martinez M.D. [id number] CBCon 03-02-2025 AUTO NRBC 0.0 % Normal [facility] Comment on above: Order Comment: Injur y/Trauma or Illness?:Illness/Other How long have you had these symptoms (acute/chronic)?:Acute Reason for exam?:sob History of cancer?:. Surgeries, chemotherapy, or radiation?:cardiac catheterization Type of Exam?:Initial Additional signs and symptoms?:n Performed By: #### 4 [id number] #### LAB [address] [address] Moody Martinez M.D. [id number] AUTO NRBC ABS COUNT 0.00 K/mcL Normal 0.00-0.00 [facility] Comment on above: Order Comment: Injur y/Trauma or Illness?:Illness/Other How long have you had these symptoms (acute/chronic)?:Acute Reason for exam?:sob History of cancer?:. Surgeries, chemotherapy, or radiation?:cardiac catheterization Type of Exam?:Initial Additional signs and symptoms?:n Performed By: #### 4 [id number] #### LAB [address] [address] Moody Martinez M.D. [id number] Erythrocyte distribution width (RBC) [Ratio] 13.4 % Normal 11.6-14.8 [facility] Comment on above: Order Comment: Injur y/Trauma or Illness?:Illness/Other How long have you had these symptoms (acute/chronic)?:Acute Reason for exam?:sob History of cancer?:. Surgeries, chemotherapy, or radiation?:cardiac catheterization Type of Exam?:Initial Additional signs and symptoms?:n Performed By: #### 4 [id number] #### LAB [address] [address] Moody Martinez M.D. [id number] Hematocrit (Bld) [Volume fraction] 31.3 % Low 41.0-53.0 [facility] Comment on above: Order Comment: Injur y/Trauma or Illness?:Illness/Other How long have you had these symptoms (acute/chronic)?:Acute Reason for exam?:sob History of cancer?:. Surgeries, chemotherapy, or radiation?:cardiac catheterization Type of Exam?:Initial Additional signs and symptoms?:n Performed By: #### 4 [id number] #### LAB [address] [address] Moody Martinez M.D. [id number] Hemoglobin (Bld) [Mass/Vol] 10.3 g/dL Low 13.5-17.5 [facility] Comment on above: Order Comment: Injur y/Trauma or Illness?:Illness/Other How long have you had these symptoms (acute/chronic)?:Acute Reason for exam?:sob History of cancer?:. Surgeries, chemotherapy, or radiation?:cardiac catheterization Type of Exam?:Initial Additional signs and symptoms?:n Performed By: #### 4 [id number] #### LAB [address] [address] Moody Martinez M.D. [id number] MCH (RBC) [Entitic mass] 31.0 pg Normal 26.0-34.0 [facility] Comment on above: Order Comment: Injur y/Trauma or Illness?:Illness/Other How long have you had these symptoms (acute/chronic)?:Acute Reason for exam?:sob History of cancer?:. Surgeries, chemotherapy, or radiation?:cardiac catheterization Type of Exam?:Initial Additional signs and symptoms?:n Performed By: #### 4 [id number] #### LAB [address] [address] Moody Martinez M.D. [id number] MCV (RBC) [Entitic vol] 94.3 fL Normal 80.0-100.0 [facility] Comment on above: Order Comment: Injur y/Trauma or Illness?:Illness/Other How long have you had these symptoms (acute/chronic)?:Acute Reason for exam?:sob History of cancer?:. Surgeries, chemotherapy, or radiation?:cardiac catheterization Type of Exam?:Initial Additional signs and symptoms?:n Performed By: #### 4 [id number] #### LAB [address] [address] Moody Martinez M.D. [id number] MEAN CORPUSCULAR HEMOGLOBIN CONC 32.9 g/dL Normal 31.0-37.0 [facility] Comment on above: Order Comment: Injur y/Trauma or Illness?:Illness/Other How long have you had these symptoms (acute/chronic)?:Acute Reason for exam?:sob History of cancer?:. Surgeries, chemotherapy, or radiation?:cardiac catheterization Type of Exam?:Initial Additional signs and symptoms?:n Performed By: #### 4 [id number] #### LAB [address] [address] Moody Martinez M.D. [id number] Platelet mean volume (Bld) [Entitic vol] 11.6 fL Normal 9.4-12.4 [facility] Comment on above: Order Comment: Injur y/Trauma or Illness?:Illness/Other How long have you had these symptoms (acute/chronic)?:Acute Reason for exam?:sob History of cancer?:. Surgeries, chemotherapy, or radiation?:cardiac catheterization Type of Exam?:Initial Additional signs and symptoms?:n Performed By: #### 4 [id number] #### LAB [address] [address] Moody Martinez M.D. [id number] Platelets (Bld) [#/Vol] 176 10*3/uL Normal 150-400 [facility] Comment on above: Order Comment: Injur y/Trauma or Illness?:Illness/Other How long have you had these symptoms (acute/chronic)?:Acute Reason for exam?:sob History of cancer?:. Surgeries, chemotherapy, or radiation?:cardiac catheterization Type of Exam?:Initial Additional signs and symptoms?:n Performed By: #### 4 [id number] #### LAB [address] [address] Moody Martinez M.D. [id number] RBC (Bld) [#/Vol] 3.32 10*6/uL Low 4.50-5.90 [facility] Comment on above: Order Comment: Injur y/Trauma or Illness?:Illness/Other How long have you had these symptoms (acute/chronic)?:Acute Reason for exam?:sob History of cancer?:. Surgeries, chemotherapy, or radiation?:cardiac catheterization Type of Exam?:Initial Additional signs and symptoms?:n Performed By: #### 4 [id number] #### LAB [address] [address] Moody Martinez M.D. [id number] WBC (Bld) [#/Vol] 14.08 10*3/uL High 4.50-11.00 [facility] Comment on above: Order Comment: Injur y/Trauma or Illness?:Illness/Other How long have you had these symptoms (acute/chronic)?:Acute Reason for exam?:sob History of cancer?:. Surgeries, chemotherapy, or radiation?:cardiac catheterization Type of Exam?:Initial Additional signs and symptoms?:n Performed By: #### 4 [id number] #### LAB [address] [address] Moody Martinez M.D. [id number] AUTO NRBC 0.0 % Normal [facility] Comment on above: Performed By: #### 4 5218 #### LAB [address] [address] Moody Martinez M.D. [id number] AUTO NRBC ABS COUNT 0.00 K/mcL Normal 0.00-0.00 [facility] Comment on above: Performed By: #### 4 5218 #### LAB [address] [address] Moody Martinez M.D. [id number] Erythrocyte distribution width (RBC) [Ratio] 13.4 % Normal 11.6-14.8 [facility] Comment on above: Performed By: #### 4 5218 #### LAB [address] [address] Moody Martinez M.D. [id number] Hematocrit (Bld) [Volume fraction] 34.4 % Low 41.0-53.0 [facility] Comment on above: Performed By: #### 4 5218 #### LAB [address] [address] Moody Martinez M.D. [id number] Hemoglobin (Bld) [Mass/Vol] 11.2 g/dL Low 13.5-17.5 [facility] Comment on above: Performed By: #### 4 5218 #### LAB [address] [address] Moody Martinez M.D. [id number] MCH (RBC) [Entitic mass] 31.1 pg Normal 26.0-34.0 [facility] Comment on above: Performed By: #### 4 5218 #### LAB [address] [address] Moody Martinez M.D. [id number] MCV (RBC) [Entitic vol] 95.6 fL Normal 80.0-100.0 [facility] Comment on above: Performed By: #### 4 5218 ####[facility] [address] [address] Moody Martinez M.D. [id number] MEAN CORPUSCULAR HEMOGLOBIN CONC 32.6 g/dL Normal 31.0-37.0 [facility] Comment on above: Performed By: #### 4 5218 #### LAB [address] [address] Moody Martinez M.D. [id number] Platelet mean volume (Bld) [Entitic vol] 11.4 fL Normal 9.4-12.4 [facility] Comment on above: Performed By: #### 4 5218 #### LAB [address] [address] Moody Martinez M.D. [id number] Platelets (Bld) [#/Vol] 189 10*3/uL Normal 150-400 [facility] Comment on above: Performed By: #### 4 5218 #### LAB [address] [address] Moody Martinez M.D. [id number] RBC (Bld) [#/Vol] 3.60 10*6/uL Low 4.50-5.90 [facility] Comment on above: Performed By: #### 4 5218 #### LAB [address] [place], [place] [address] Moody Martinez M.D. [id number] WBC (Bld) [#/Vol] 11.96 10*3/uL High 4.50-11.00 [facility] Comment on above: Performed By: #### 4 5218 ####[facility] LAB [address] [place], [place] [address] Moody Martinez M.D. [id number] CONSULTon 03-02-2025 CONSULT General Cardiology Inpatient Consult Heart & Vascular [facility] 03/02/2025 Diogenes Garay MD [facility] Patient: Enoc Armando Date of : [...] plan for further details. Diogenes Garay MD [facility] Non-Invasive Cardiology [facility] Heart and Vascular Subjective Reason [...] Skin: Negative. (more content not included)... 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 Left ventricular [...] Factors Hypertension: Yes Dyslipidemia: Yes Myocardial Infarction (WV): No Congestive Heart Failure (CHF): Hx CHF [...] mmHg MV VTI 35 cm MV Decel Clay 390 cm/s2 MV PHT 75 ms MV [...] Annular TDI (more content not included)... Normal [facility] MAGNESIUM LEVELon 03-02-2025 Magnesium [Mass/Vol] 2.2 mg/dL Normal 1.6-2.4 [facility] Comment on above: Performed By: #### 4 6109 #### LAB [address] [place] [address] Moody Martinez M.D. [id number] NT PRO BNPon 03-02-2025 Natriuretic peptide B (Bld) [Mass/Vol] 24453 pg/mL High 0-300 [facility] Comment on above: Order Comment: Pride Study Cut-offsRule In:< /= 50 Years >450 pg/mL51 Years - 75 Years >900 pg/mL76 Years - 99 Years >1800 pg/mLRule Out:All patients <300 pg/mL Performed By: #### 4 7395 #### LAB [address] [place], [place] [address] Moody Martinez M.D. [id number] POC GLUCOSE [facility] 025 Glucose [Mass/Vol] 287 mg/dL [address] Comment on above: Performed By: #### 4 6932 #### LAB [address] [address] Moody Martinez M.D. [id number] Glucose [Mass/Vol] 137 mg/dL [address] Comment on above: Performed By: #### 4 6932 #### LAB [address] [address] Moody Martinez M.D. [id number] Glucose [Mass/Vol] 252 mg/dL [address] Comment on above: Performed By: #### 4 6932 #### LAB [address] [address] Moody Martinez M.D. [id number] Glucose [Mass/Vol] 332 mg/dL [address] Comment on above: Performed By: #### 4 6932 #### LAB [address] [address] Mooyd Martinez M.D. [id number] Glucose [Mass/Vol] 286 mg/dL [address] Comment on above: Performed By: #### 4 6932 #### LAB [address] [address] Moody Martinez M.D. [id number] Glucose [Mass/Vol] 168 mg/dL [address] Comment on above: Performed By: #### L [id number] #### [facility] LAB [address] [address] Moody Martinez M.D. [id number] Glucose [Mass/Vol] 186 mg/dL High 65-99 [facility] Comment on above: Performed By: #### 4 6932 #### LAB [address] [address] Moody Martinez M.D. [id number] POTASSIUM LEVELon 03-02-2025 Potassium [Moles/Vol] 3.9 mmol/L Normal 3.5-5.1 [facility] Comment on above: Performed By: #### 4 6351 #### LAB [address] [address] Moody Martinez M.D. [id number] TROPONIN X 2 (NOW AND REPEAT IN 2 HOURS)on 03-02-2025 TROPONIN T DELTA CHANGE INTERPRETATION Delta troponin requires at least 2 hours between collections. [facility] Comment on above: Performed By: #### 4 6608 #### LAB [address] [address] Moody Martinez M.D. [id number] TROPONIN T NG/L 1447 ng/L Off scale high <=22 [facility] Comment on above: Performed By: #### 4 6608 #### LAB [address] [address] Moody Martinez M.D. [id number] BASELINE TROPONIN T NG/L 1309 ng/L Off scale high <=22 [facility] Comment on above: Performed By: #### 4 6608 #### LAB [address] [address] Moody Martinez M.D. [id number] TROPONIN T INTERPRETATION Possible acute cardiac injury. [facility] Comment on above: Performed By: #### 4 6608 #### LAB [address] [address] Moody Martinez M.D. [id number] XR CHEST PA/APon 03-02-2025 XR CHEST PA/AP [...] (HCC) J18.9 Pneumonia E11.10 DKA (diabetic ketoacidosis) ([facility]) COMPARISON: 02/28/2025. TECHNIQUE: Single portable semierect view. FINDINGS: Cardiac silhouette and mediastinal contours are stable. No pneumothorax or large pleural effusion. There is development of womzitpm-tp-enwmrz bilateral mixed interstitial and alveolar opacities in both lungs consistent with pulmonary edema; although, underlying pneumonia/aspiration is not excluded. IMPRESSION: Development of tdeyxtey-ct-fovhsw mixed interstitial and alveolar opacities in both lungs consistent with pulmonary edema. Underlying pneumonia/aspiration not excluded. No pneumothorax or large pleural effusion. JAR/trw Workstation ID: [id number] Dictated by: KAHLIL VARGHESE on WedMarch 02, 2025 2:36:56 PM EDT Transcribed by: AFUA RALPH on WedMarch 02, 2025 3:15:52 PM EDT Finalized by: KAHLIL VARGHESE on WedMarch 02, 2025 3:23:59 PM EDT [facility] Comment on above: Order Comment: Injur y/Trauma or Illness?:Illness/OtherHow long have you had these symptoms (acute/chronic)?:AcuteReason for exam?:SOBHistory of cancer?:.Surgeries, chemotherapy, or radiation?:cardiac catheterizationType of Exam?:InitialAdditional signs and symptoms?:. BASIC METABOLIC PANELon 05-0 Anion gap [Moles/Vol] 15 mmol/L Normal 10-20 [facility] Comment on above: Order Comment: [facility] has implemented the eGFR calculation approach that does not have a coefficient for race that conforms to the NKF-ASN Task Force Recommendations. Performed By: #### 4 6124 ####[facility] LAB [address] [place], [place] [address] Moody Martinez M.D. [id number] Calcium [Mass/Vol] 8.7 mg/dL Normal 8.4-10.2 [facility] Comment on above: Order Comment: [facility] has implemented the eGFR calculation approach that does not have a coefficient for race that conforms to the NKF-ASN Task Force Recommendations. Performed By: #### 4 6124 #### LAB [address] [place], [place] [address] Moody Martinez M.D. [id number] Chloride [Moles/Vol] 104 mmol/L Normal 98-108 [facility] Comment on above: Order Comment: [facility] has implemented the eGFR calculation approach that does not have a coefficient for race that conforms to the NKF-ASN Task Force Recommendations. Performed By: #### 4 6124 #### LAB [address] [address] Moody Martienz M.D. [id number] Creatinine [Mass/Vol] 2.49 mg/dL High 0.80-1.30 [facility] Comment on above: Order Comment: [facility] has implemented the eGFR calculation approach that does not have a coefficient for race that conforms to the NKF-ASN Task Force Recommendations. Performed By: #### 4 6124 #### LAB [address] [address] Moody Martinez M.D. [id number] EGFR 25 mL/min/1.73 m2 Low >=60 [facility] Comment on above: Order Comment: [facility] has implemented the eGFR calculation approach that does not have a coefficient for race that conforms to the NKF-ASN Task Force Recommendations. Result Comment: Albin mated GFR was calculated using the 2020 CKD-EPI creatinine equation. Performed By: #### 4 6124 #### LAB [address] [place] [id number] Moody Martinez M.D. [id number] Glucose [Mass/Vol] 86 mg/dL Normal 65-99 [facility] Comment on above: Order Comment: [facility] has implemented the eGFR calculation approach that does not have a coefficient for race that conforms to the NKF-ASN Task Force Recommendations. Performed By: #### 4 6124 #### LAB [address] [id number] Moody Martinez M.D. [id number] HCO3 (Bld) [Moles/Vol] 26 mmol/L Normal 21-32 [facility] Comment on above: Order Comment: [facility] has implemented the eGFR calculation approach that does not have a coefficient for race that conforms to the NKF-ASN Task Force Recommendations. Performed By: #### 4 6124 ####[facility] [address] [place], [place] [address] Moody Martinez M.D. [id number] Potassium [Moles/Vol] 4.2 mmol/L Normal 3.5-5.1 [facility] Comment on above: Order Comment: [facility] has implemented the eGFR calculation approach that does not have a coefficient for race that conforms to the NKF-ASN Task Force Recommendations. Performed By: #### 4 6124 #### LAB [address] [address] Moody Martinez M.D. [id number] Sodium [Moles/Vol] 141 mmol/L Normal 135-145 [facility] Comment on above: Order Comment: [facility] has implemented the eGFR calculation approach that does not have a coefficient for race that conforms to the NKF-ASN Task Force Recommendations. Performed By: #### 4 6124 ####[facility] [address] [address] Moody Martinez M.D. [id number] Urea nitrogen [Mass/Vol] 47 mg/dL High 8-25 [facility] Comment on above: Order Comment: [facility] has implemented the eGFR calculation approach that does not have a coefficient for race that conforms to the NKF-ASN Task Force Recommendations. Performed By: #### 4 6124 ####[facility] [address] [address] Moody Martinez M.D. [id number] Urea nitrogen/Creatinine [Mass ratio] 18.9 mg/mg Normal 10.0-20.0 [facility] Comment on above: Order Comment: [facility] has implemented the eGFR calculation approach that does not have a coefficient for race that conforms to the NKF-ASN Task Force Recommendations. Performed By: #### 4 6124 #### LAB [address] [address] Moody Martinez M.D. [id number] CBCon 03-01-2025 AUTO NRBC 0.0 % Normal [facility] Comment on above: Performed By: #### 4 [id number] ####[facility] [address] [address] Moody Martinez M.D. [id number] AUTO NRBC ABS COUNT 0.00 K/mcL Normal 0.00-0.00 [facility] [place] [facility] Comment on above: Performed By: #### 4 [id number] #### LAB [address] [address] Moody Martinez M.D. [id number] Erythrocyte distribution width (RBC) [Ratio] 13.7 % Normal 11.6-14.8 [facility] Comment on above: Performed By: #### 4 [id number] #### LAB [address] [address] Moody Martinez M.D. [id number] Hematocrit (Bld) [Volume fraction] 29.8 % Low 41.0-53.0 [facility] Comment on above: Performed By: #### 4 [id number] #### LAB [address] [address] Moody Martinez M.D. [id number] Hemoglobin (Bld) [Mass/Vol] 9.9 g/dL Low 13.5-17.5 [facility] Comment on above: Performed By: #### 4 [id number] #### LAB [address] [address] Moody Martinez M.D. [id number] MCH (RBC) [Entitic mass] 31.0 pg Normal 26.0-34.0 [facility] Comment on above: Performed By: #### 4 [id number] #### LAB [address] [id number] Moody Martinez M.D. [id number] MCV (RBC) [Entitic vol] 93.4 fL Normal 80.0-100.0 [facility] Comment on above: Performed By: #### 4 [id number] #### LAB [address] [address] Moody Martinez M.D. [id number] MEAN CORPUSCULAR HEMOGLOBIN CONC 33.2 g/dL Normal 31.0-37.0 [facility] Comment on above: Performed By: #### 4 [id number] #### LAB [address] [address] Moody Martinez M.D. [id number] Platelet mean volume (Bld) [Entitic vol] 10.9 fL Normal 9.4-12.4 [facility] Comment on above: Performed By: #### 4 [id number] #### LAB [address] [address] Moody Martinez M.D. [id number] Platelets (Bld) [#/Vol] 186 10*3/uL Normal 150-400 [facility] Comment on above: Performed By: #### 4 [id number] #### LAB [address] [address] Moody Martinez M.D. [id number] RBC (Bld) [#/Vol] 3.19 10*6/uL Low 4.50-5.90 [facility] [place] [facility] Comment on above: Performed By: #### 4 [id number] #### LAB [address] [address] Moody Martinez M.D. [id number] WBC (Bld) [#/Vol] 15.37 10*3/uL High 4.50-11.00 [facility] Comment on above: Performed By: #### 4 [id number] #### LAB [address] [address] Moody Martinez M.D. [id number] MAGNESIUM LEVELon 03-01-2025 Magnesium [Mass/Vol] 2.1 mg/dL Normal 1.6-2.4 [facility] Comment on above: Performed By: #### 4 6109 ####[facility] [address] [address] Moody Martinez M.D. [id number] PHOSPHORUSon 03-01-2025 Phosphate [Mass/Vol] 4.3 mg/dL High 2.3-3.7 [facility] Comment on above: Performed By: #### 4 6299 ####[facility] [address] [address] Moody Martinez M.D. [id number] POC GLUCOSE - [facility] 025 Glucose [Mass/Vol] 249 mg/dL High [address] [place] [address] Comment on above: Performed By: #### 4 6932 ####[facility] [address] [address] Moody Martinez M.D. [id number] Glucose [Mass/Vol] 79 mg/dL Normal [address] [place] [address] Comment on above: Performed By: #### 4 6932 ####[facility] [address] [address] Moody Martinez M.D. [id number] Glucose [Mass/Vol] 237 mg/dL High [address] [place] [address] Comment on above: Performed By: #### 4 6932 ####[facility] [address] [address] Moody Martinez M.D. [id number] Glucose [Mass/Vol] 85 mg/dL Normal [address] [place] [address] Comment on above: Performed By: #### 4 6910 ####[facility] [address] [address] Moody Martinez M.D. [id number] Glucose [Mass/Vol] 167 mg/dL High [address] [place] [address] Comment on above: Performed By: #### 4 6979 ####[facility] [address] [address] Moody Martinez M.D. [id number] BASIC METABOLIC PANELon - Anion gap [Moles/Vol] 16 mmol/L Normal 10-20 [facility] Comment on above: Order Comment: [facility] has implemented the eGFR calculation approach that does not have a coefficient for race that conforms to the NKF-ASN Task Force Recommendations. Performed By: #### 4 4014 #### LAB [address] [place], [place] [address] Moody Martinez M.D. [id number] Calcium [Mass/Vol] 9.5 mg/dL Normal 8.4-10.2 [facility] Comment on above: Order Comment: [facility] has implemented the eGFR calculation approach that does not have a coefficient for race that conforms to the NKF-ASN Task Force Recommendations. Performed By: #### 4 4014 #### LAB [address] [place], [place] [address] Moody Martinez M.D. [id number] Chloride [Moles/Vol] 103 mmol/L Normal 98-108 [facility] Comment on above: Order Comment: [facility] has implemented the eGFR calculation approach that does not have a coefficient for race that conforms to the NKF-ASN Task Force Recommendations. Performed By: #### 4 4014 #### LAB [address] [address] Moody Martinez M.D. [id number] Creatinine [Mass/Vol] 2.61 mg/dL High 0.80-1.30 [facility] Comment on above: Order Comment: [facility] has implemented the eGFR calculation approach that does not have a coefficient for race that conforms to the NKF-ASN Task Force Recommendations. Performed By: #### 4 4014 #### LAB [address] [address] Moody Martinez M.D. [id number] EGFR 24 mL/min/1.73 m2 Low >=60 [facility] Comment on above: Order Comment: [facility] has implemented the eGFR calculation approach that does not have a coefficient for race that conforms to the NKF-ASN Task Force Recommendations. Result Comment: Albin mated GFR was calculated using the 2020 CKD-EPI creatinine equation. Performed By: #### 4 4014 #### [facility] [address] [address] Moody Martinez M.D. [id number] Glucose [Mass/Vol] 138 mg/dL High 65-99 [facility] Comment on above: Order Comment: [facility] has implemented the eGFR calculation approach that does not have a coefficient for race that conforms to the NKF-ASN Task Force Recommendations. Performed By: #### 4 4014 #### [facility] [address] [address] Moody Martinez M.D. [id number] HCO3 (Bld) [Moles/Vol] 23 mmol/L Normal 21-32 [facility] Comment on above: Order Comment: [facility] has implemented the eGFR calculation approach that does not have a coefficient for race that conforms to the NKF-ASN Task Force Recommendations. Performed By: #### 4 4014 #### LAB [address] [address] Moody Martinez M.D. [id number] Potassium [Moles/Vol] 4.0 mmol/L Normal 3.5-5.1 [facility] Comment on above: Order Comment: [facility] has implemented the eGFR calculation approach that does not have a coefficient for race that conforms to the NKF-ASN Task Force Recommendations. Performed By: #### 4 4014 #### LAB [address] [address] Moody Martinez M.D. [id number] Sodium [Moles/Vol] 138 mmol/L Normal 135-145 [facility] Comment on above: Order Comment: [facility] has implemented the eGFR calculation approach that does not have a coefficient for race that conforms to the NKF-ASN Task Force Recommendations. Performed By: #### 4 4014 #### [facility] [address] [address] Moody Martinez M.D. [id number] Urea nitrogen [Mass/Vol] 50 mg/dL High 8-25 [facility] Comment on above: Order Comment: [facility] has implemented the eGFR calculation approach that does not have a coefficient for race that conforms to the NKF-ASN Task Force Recommendations. Performed By: #### 4 4014 #### LAB [address] [address] Moody Martinez M.D. [id number] Urea nitrogen/Creatinine [Mass ratio] 19.2 mg/mg Normal 10.0-20.0 [facility] Comment on above: Order Comment: [facility] has implemented the eGFR calculation approach that does not have a coefficient for race that conforms to the NKF-ASN Task Force Recommendations. Performed By: #### 4 4014 #### LAB [address] [address] Moody Martinez M.D. [id number] Anion gap [Moles/Vol] 22 mmol/L High 10-20 [facility] Comment on above: Order Comment: Injur y/Trauma or Illness?:Illness/Other How long have you had these symptoms (acute/chronic)?:Acute Reason for exam?:cross clamp of aorta for CPB Type of Exam?:Initial Additional signs and symptoms?:cp Performed By: #### 4 6124 #### LAB [address] [address] Moody Martinez M.D. 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 [id number] Chloride [Moles/Vol] 100 mmol/L Normal 98-108 [facility] Comment on above: Order Comment: Injur y/Trauma or Illness?:Illness/Other How long have you had these symptoms (acute/chronic)?:Acute Reason for exam?:cross clamp of aorta for CPB Type of Exam?:Initial Additional signs and symptoms?:cp Performed By: #### 4 6142 #### LAB [address] [address] Moody Martinez M.D. [id number] Creatinine [Mass/Vol] 2.69 mg/dL High 0.80-1.30 [facility] Comment on above: Order Comment: Injur y/Trauma or Illness?:Illness/Other How long have you had these symptoms (acute/chronic)?:Acute Reason for exam?:cross clamp of aorta for CPB Type of Exam?:Initial Additional signs and symptoms?:cp Performed By: #### 4 6172 #### LAB [address] [address] Moody Martinez M.D. 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 Performed By: #### 4 6126 #### LAB [address] [address] Moody Martinez M.D. [id number] Glucose [Mass/Vol] 426 mg/dL Off scale high 65-99 [facility] Comment on above: Order Comment: Injur y/Trauma or Illness?:Illness/Other How long have you had these symptoms (acute/chronic)?:Acute Reason for exam?:cross clamp of aorta for CPB Type of Exam?:Initial Additional signs and symptoms?:cp Performed By: #### 4 6106 #### LAB [address] [address] Moody Martinez M.D. 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 [id number] Potassium [Moles/Vol] 4.0 mmol/L Normal 3.5-5.1 [facility] Comment on above: Order Comment: Injur y/Trauma or Illness?:Illness/Other How long have you had these symptoms (acute/chronic)?:Acute Reason for exam?:cross clamp of aorta for CPB Type of Exam?:Initial Additional signs and symptoms?:cp Performed By: #### 4 6124 #### LAB [address] [address] Moody Martinez M.D. [id number] Sodium [Moles/Vol] 137 mmol/L Normal 135-145 [facility] Comment on above: Order Comment: Injur y/Trauma or Illness?:Illness/Other How long have you had these symptoms (acute/chronic)?:Acute Reason for exam?:cross clamp of aorta for CPB Type of Exam?:Initial Additional signs and symptoms?:cp Performed By: #### 4 6124 #### LAB [address] [address] Moody Martinez M.D. [id number] Urea nitrogen [Mass/Vol] 51 mg/dL High 8- [facility] Comment on above: Order Comment: Injur y/Trauma or Illness?:Illness/Other How long have you had these symptoms (acute/chronic)?:Acute Reason for exam?:cross clamp of aorta for CPB Type of Exam?:Initial Additional signs and symptoms?:cp Performed By: #### 4 6159 #### LAB [address] [address] Moody Martinez M.D. [id number] Urea nitrogen/Creatinine [Mass ratio] 19.0 mg/mg Normal 10.0-20.0 [facility] Comment on above: Order Comment: Injur y/Trauma or Illness?:Illness/Other How long have you had these symptoms (acute/chronic)?:Acute Reason for exam?:cross clamp of aorta for CPB Type of Exam?:Initial Additional signs and symptoms?:cp Performed By: #### 4 6172 #### LAB [address] [address] Moody Martinez M.D. [id number] Anion gap [Moles/Vol] 27 mmol/L High 10-20 [facility] Comment on above: Order Comment: [facility] has implemented the eGFR calculation approach that does not have a coefficient for race that conforms to the NKF-ASN Task Force Recommendations. Performed By: #### 4 6124 #### LAB [address] [address] Moody Martinez M.D. [id number] Calcium [Mass/Vol] 9.6 mg/dL Normal 8.4-10.2 [facility] Comment on above: Order Comment: [facility] has implemented the eGFR calculation approach that does not have a coefficient for race that conforms to the NKF-ASN Task Force Recommendations. Performed By: #### 4 6124 #### LAB [address] [address] Moody Martinez M.D. [id number] Chloride [Moles/Vol] 97 mmol/L Low 98-108 [facility] Comment on above: Order Comment: [facility] has implemented the eGFR calculation approach that does not have a coefficient for race that conforms to the NKF-ASN Task Force Recommendations. Performed By: #### 4 6124 #### LAB [address] [address] Moody Martinez M.D. [id number] Creatinine [Mass/Vol] 2.72 mg/dL High 0.80-1.30 [facility] Comment on above: Order Comment: [facility] has implemented the eGFR calculation approach that does not have a coefficient for race that conforms to the NKF-ASN Task Force Recommendations. Performed By: #### 4 6199 #### LAB [address] [address] Moody Martinez M.D. [id number] EGFR 23 mL/min/1.73 m2 Low >=60 [facility] Comment on above: Order Comment: [facility] has implemented the eGFR calculation approach that does not have a coefficient for race that conforms to the NKF-ASN Task Force Recommendations. Result Comment: Albin mated GFR was calculated using the 2020 CKD-EPI creatinine equation. Performed By: #### 4 6124 ####[facility] [address] [address] Moody Martinez M.D. [id number] Glucose [Mass/Vol] 529 mg/dL Off scale high 65-99 [facility] Comment on above: Order Comment: [facility] has implemented the eGFR calculation approach that does not have a coefficient for race that conforms to the NKF-ASN Task Force Recommendations. Performed By: #### 4 6124 ####[facility] [address] [address] Moody Martinez M.D. [id number] HCO3 (Bld) [Moles/Vol] 17 mmol/L Low 21-32 [facility] Comment on above: Order Comment: [facility] has implemented the eGFR calculation approach that does not have a coefficient for race that conforms to the NKF-ASN Task Force Recommendations. Performed By: #### 4 6124 #### LAB [address] [address] Moody Martinez M.D. [id number] Potassium [Moles/Vol] 4.5 mmol/L Normal 3.5-5.1 [facility] Comment on above: Order Comment: [facility] has implemented the eGFR calculation approach that does not have a coefficient for race that conforms to the NKF-ASN Task Force Recommendations. Performed By: #### 4 6124 ####[facility] [address] [address] Moody Martinez M.D. [id number] Sodium [Moles/Vol] 136 mmol/L Normal 135-145 [facility] Comment on above: Order Comment: [facility] has implemented the eGFR calculation approach that does not have a coefficient for race that conforms to the NKF-ASN Task Force Recommendations. Performed By: #### 4 6124 #### LAB [address] [place], [place] [address] Moody Martinez M.D. [id number] Urea nitrogen [Mass/Vol] 52 mg/dL High 8- [facility] Comment on above: Order Comment: [facility] has implemented the eGFR calculation approach that does not have a coefficient for race that conforms to the NKF-ASN Task Force Recommendations. Performed By: #### 4 6124 #### LAB [address] [address] Moody Martinez M.D. [id number] Urea nitrogen/Creatinine [Mass ratio] 19.1 mg/mg Normal 10.0-20.0 [facility] Comment on above: Order Comment: [facility] has implemented the eGFR calculation approach that does not have a coefficient for race that conforms to the NKF-ASN Task Force Recommendations. Performed By: #### 4 6124 #### LAB [address] [address] Moody Martinez M.D. [id number] Anion gap [Moles/Vol] 28 mmol/L High 10-20 [facility] Comment on above: Order Comment: Injur y/Trauma or Illness?:Illness/Other How long have you had these symptoms (acute/chronic)?:Acute Reason for exam?:sob History of cancer?:. Surgeries, chemotherapy, or radiation?:cardiac catheterization Type of Exam?:Initial Additional signs and symptoms?:n Performed By: #### 4 6124 #### LAB [address] [address] Moody Martinez M.D. [id number] Calcium [Mass/Vol] 9.6 mg/dL Normal 8.4-10.2 [facility] Comment on above: Order Comment: Injur y/Trauma or Illness?:Illness/Other How long have you had these symptoms (acute/chronic)?:Acute Reason for exam?:sob History of cancer?:. Surgeries, chemotherapy, or radiation?:cardiac catheterization Type of Exam?:Initial Additional signs and symptoms?:n Performed By: #### 4 6121 #### LAB [address] [address] Moody Martinez M.D. [id number] Chloride [Moles/Vol] 97 mmol/L Low 98-108 [facility] Comment on above: Order Comment: Injur y/Trauma or Illness?:Illness/Other How long have you had these symptoms (acute/chronic)?:Acute Reason for exam?:sob History of cancer?:. Surgeries, chemotherapy, or radiation?:cardiac catheterization Type of Exam?:Initial Additional signs and symptoms?:n Performed By: #### 4 6124 #### LAB [address] [address] Moody Martinez M.D. [id number] Creatinine [Mass/Vol] 2.66 mg/dL High 0.80-1.30 [facility] Comment on above: Order Comment: Injur y/Trauma or Illness?:Illness/Other How long have you had these symptoms (acute/chronic)?:Acute Reason for exam?:sob History of cancer?:. Surgeries, chemotherapy, or radiation?:cardiac catheterization Type of Exam?:Initial Additional signs and symptoms?:n Performed By: #### 4 6196 #### LAB [address] [address] Moody Martinez M.D. [id number] EGFR 23 mL/min/1.73 m2 Low >=60 [facility] Comment on above: Order Comment: Injur y/Trauma or Illness?:Illness/Other How long have you had these symptoms (acute/chronic)?:Acute Reason for exam?:sob History of cancer?:. Surgeries, chemotherapy, or radiation?:cardiac catheterization Type of Exam?:Initial Additional signs and symptoms?:n Result Comment: Albin mated GFR was calculated using the 2020 CKD-EPI creatinine equation. Performed By: #### 4 6138 #### LAB [address] [address] Moody Martinez M.D. [id number] Glucose [Mass/Vol] 514 mg/dL Off scale high 65-99 [facility] Comment on above: Order Comment: Injur y/Trauma or Illness?:Illness/Other How long have you had these symptoms (acute/chronic)?:Acute Reason for exam?:sob History of cancer?:. Surgeries, chemotherapy, or radiation?:cardiac catheterization Type of Exam?:Initial Additional signs and symptoms?:n Performed By: #### 4 6108 #### LAB [address] [address] Moody Martinez M.D. [id number] HCO3 (Bld) [Moles/Vol] 18 mmol/L Low 21-32 [facility] Comment on above: Order Comment: Injur y/Trauma or Illness?:Illness/Other How long have you had these symptoms (acute/chronic)?:Acute Reason for exam?:sob History of cancer?:. Surgeries, chemotherapy, or radiation?:cardiac catheterization Type of Exam?:Initial Additional signs and symptoms?:n Performed By: #### 4 6171 #### LAB [address] [address] Moody Martinez M.D. [id number] Potassium [Moles/Vol] 5.9 mmol/L High 3.5-5.1 [facility] Comment on above: Order Comment: Injur y/Trauma or Illness?:Illness/Other How long have you had these symptoms (acute/chronic)?:Acute Reason for exam?:sob History of cancer?:. Surgeries, chemotherapy, or radiation?:cardiac catheterization Type of Exam?:Initial Additional signs and symptoms?:n Result Comment: Slig htly Hemolyzed Performed By: #### 4 6156 #### LAB [address] [address] Moody Martinez M.D. [id number] Sodium [Moles/Vol] 137 mmol/L Normal 135-145 [facility] Comment on above: Order Comment: Injur y/Trauma or Illness?:Illness/Other How long have you had these symptoms (acute/chronic)?:Acute Reason for exam?:sob History of cancer?:. Surgeries, chemotherapy, or radiation?:cardiac catheterization Type of Exam?:Initial Additional signs and symptoms?:n Performed By: #### 4 6153 #### LAB [address] [address] Moody Martinez M.D. [id number] Urea nitrogen [Mass/Vol] 50 mg/dL High 8-25 [facility] Comment on above: Order Comment: Injur y/Trauma or Illness?:Illness/Other How long have you had these symptoms (acute/chronic)?:Acute Reason for exam?:sob History of cancer?:. Surgeries, chemotherapy, or radiation?:cardiac catheterization Type of Exam?:Initial Additional signs and symptoms?:n Performed By: #### 4 6124 #### LAB [address] [address] Moody Martinez M.D. [id number] Urea nitrogen/Creatinine [Mass ratio] 18.8 mg/mg Normal 10.0-20.0 [facility] Comment on above: Order Comment: Injur y/Trauma or Illness?:Illness/Other How long have you had these symptoms (acute/chronic)?:Acute Reason for exam?:sob History of cancer?:. Surgeries, chemotherapy, or radiation?:cardiac catheterization Type of Exam?:Initial Additional signs and symptoms?:n Performed By: #### 4 6124 ####[facility] [address] [address] Moody Martinez M.D. [id number] BETA-HYDROXYBUTYRATEon 02-28 BETA-HYDROXYBUTYRATE < Normal 0.0-0.3 [facility] Comment on above: Performed By: #### 4 5139 #### LAB [address] [address] Moody Martinez M.D. [id number] BETA-HYDROXYBUTYRATE 1.1 mmol/L High 0.0-0.3 [facility] Comment on above: Performed By: #### 4 5198 #### LAB [address] [address] Moody Martinez M.D. [id number] BETA-HYDROXYBUTYRATE 3.3 mmol/L High 0.0-0.3 [facility] Comment on above: Performed By: #### 4 4014 #### LAB [address] [address] Moody Martinez M.D. [id number] BETA-HYDROXYBUTYRATE 3.3 mmol/L High 0.0-0.3 [facility] Comment on above: Performed By: #### 4 4014 #### LAB [address] [address] Moody Martinez M.D. [id number] BLOOD CULTURE AEROBIC/ANAERO BICon 02-28-2025 BLOOD CULTURE AEROBIC/ANAEROBIC BLOOD CULTURE No Growth after 5 days [facility] Comment on above: Performed By: #### 4 4014 #### LAB [address] [address] Moody Martinez M.D. [id number] Performed By: #### 4 4014 #### LAB [address] [address] Moody Martinez M.D. [id number] CBC WITH AUTO DIFFERENTIALon 02-28-2025 AUTO NRBC 0.0 % [facility] Comment on above: Performed By: #### L [id number] ####[facility] [address] [address] Moody Martinez M.D. [id number] AUTO NRBC ABS COUNT 0.00 K/mcL Normal 0.00-0.00 [facility] Comment on above: Performed By: #### L [id number] #### LAB [address] [address] Moody Martinez M.D. [id number] BASOPHILS ABSOLUTE COUNT 0.05 K/mcL Normal 0.00-0.30 [facility] Comment on above: Performed By: #### L [id number] #### LAB [address] [address] Moody Martinez M.D. [id number] Basophils/100 WBC (Bld) 0.3 % [facility] Comment on above: Performed By: #### L [id number] #### LAB [address] [address] Moody Martinez M.D. [id number] Eosinophils (Bld) [#/Vol] 0.00 10*3/uL Normal 0.00-0.5 0 [facility] Comment on above: Performed By: #### L [id number] #### LAB [address] [address] Moody Martinez M.D. [id number] Eosinophils/100 WBC (Bld) 0.0 % Normal [facility] Comment on above: Performed By: #### L [id number] #### LAB [address] [address] Moody Martinez M.D. [id number] Erythrocyte distribution width (RBC) [Ratio] 13.5 % Normal 11.6-14.8 [facility] Comment on above: Performed By: #### L [id number] #### LAB [address] [address] Moody Martinez M.D. [id number] Hematocrit (Bld) [Volume fraction] 40.2 % Low 41.0-53.0 [facility] Comment on above: Performed By: #### L [id number] #### LAB [address] [address] Moody Martinez M.D. [id number] Hemoglobin (Bld) [Mass/Vol] 13.1 g/dL Low 13.5-17.5 [facility] Comment on above: Performed By: #### L [id number] #### LAB [address] [place] [address] Moody Martinez M.D. [id number] IG ABSOLUTE 0.16 K/mcL Normal 0.00-0.30 [facility] Comment on above: Performed By: #### L [id number] #### LAB [address] [place] [address] Moody Martinez M.D. [id number] IG PERCENT 0.80 % Normal [facility] Comment on above: Result Comment: The IG parameter is the percentage of metamyelocytes, myelocytes and promyelocytes. An immature granulocyte count (IG) of 1% or more suggests the possibility of infection, an IG count of 3% is very likely related to an infection. Performed By: #### L [id number] #### LAB [address] [address] Moody Martinez M.D. [id number] Lymphocytes (Bld) [#/Vol] 1.13 10*3/uL Normal 0.90-4.0 0 [facility] Comment on above: Performed By: #### L [id number] #### LAB [address] [address] Moody Martinez M.D. [id number] Lymphocytes/100 WBC (Bld) 6.0 % Normal [facility] Comment on above: Performed By: #### L [id number] #### LAB [address] [address] Moody Martinez M.D. [id number] MCH (RBC) [Entitic mass] 30.8 pg Normal 26.0-34.0 [facility] Comment on above: Performed By: #### L [id number] #### LAB [address] [address] Moody Martinez M.D. [id number] MCV (RBC) [Entitic vol] 94.6 fL Normal 80.0-100.0 [facility] Comment on above: Performed By: #### L [id number] #### LAB [address] [place] [address] Moody Martinez M.D. [id number] MEAN CORPUSCULAR HEMOGLOBIN CONC 32.6 g/dL Normal 31.0-37.0 [facility] Comment on above: Performed By: #### L [id number] #### LAB [address] [address] Moody Martinez M.D. [id number] Monocytes (Bld) [#/Vol] 0.91 10*3/uL High 0.30-0.90 [facility] Comment on above: Performed By: #### L [id number] #### LAB [address] [place] [address] Moody Martinez M.D. [id number] Monocytes/100 WBC (Bld) 4.8 % Normal [facility] Comment on above: Performed By: #### L [id number] #### LAB [address] [address] Moody Martinez M.D. [id number] NEUTROPHILS ABSOLUTE COUNT 16.63 K/mcL High 1.70-7.00 [facility] Comment on above: Performed By: #### L [id number] #### LAB [address] [address] Moody Martinez M.D. [id number] Neutrophils/100 WBC (Bld) 88.1 % Normal [facility] Comment on above: Performed By: #### L [id number] #### LAB [address] [address] Moody Martinez M.D. [id number] Platelet mean volume (Bld) [Entitic vol] 11.1 fL Normal 9.4-12.4 [facility] Comment on above: Performed By: #### L [id number] #### LAB [address] [address] Moody Martinez M.D. [id number] Platelets (Bld) [#/Vol] 258 10*3/uL Normal 150-400 [facility] Comment on above: Performed By: #### L [id number] #### LAB [address] [address] Moody Martinez M.D. [id number] RBC (Bld) [#/Vol] 4.25 10*6/uL Low 4.50-5.90 [facility] Comment on above: Performed By: #### L [id number] ####[facility] [address] [address] Moody Martinez M.D. [id number] WBC (Bld) [#/Vol] 18.88 10*3/uL High 4.50-11.00 [facility] Comment on above: Performed By: #### L [id number] #### LAB [address] [address] Moody Martinez M.D. [id number] COVID-19/INFLUENZA A,B MOLEC ULARon 02-28-2025 SARS-CoV-2 (COVID-19) Ab IA Ql SARS-COV-2 (FERDINAND) Not Detected INFLUENZA A (FERDINAND) Not Detected INFLUENZA B (FERDINAND) Not Detected Normal Not Detected [facility] Comment on above: Performed By: #### L [id number] #### LAB [address] [place], [place] [address] Moody Martinez M.D. [id number] CRP, INFLAMMATIONon 02-29-20 25 CRP (INFLAMMATION) < Normal 0.0-10.0 [facility] Comment on above: Performed By: #### 4 5334 #### LAB [address] [place], [place] [address] Moody Martinez M.D. [id number] D-DIMER, QUANTITATIVEon 02-01 D-DIMER QUANTITATIVE 1.67 mcg/mL FEU High 0.27-0.49 [facility] Comment on above: Order Comment: A [...] By: #### 4 5434 #### LAB [address] [place], [place] [address] Moody Martinez M.D. [id number] ED Procedureon 02-28-2025 ED Procedure ECG 12 Lead Date/Time: 02/28/2025 4:33 AM Performed by: Conchita Yañez MD Authorized by: Conchita Yañez MD Interpreted by ED attending physician Rhythm: sinus rhythm and sinus tachycardia BPM: 103 Clinical impression: sinus tachycardia Comments: MN interval 144 QRS duration 90 QTc 437 AUTHENTICATED BY CONCHITA YAÑEZ, ON 02/28/2025 04:33:26 Normal [facility] ED Procedure EKG 12-lead Date/Time: 02/28/2025 3:26 AM Performed by: Conchita Yañez MD Authorized by: Conchita Yañez MD Interpreted by ED attending physician Rhythm: sinus rhythm BPM: 88 Comments: MN interval 162 QRS duration 102 QTc 491 T wave inversion in lead III and aVF as well as V5 V6 AUTHENTICATED BY CONCHITA YAÑEZ, ON 02/28/2025 03:26:34 Normal [facility] ED Prov Noteon 02-28-2025 ED Prov Note [facility] EMERGENCY DEPARTMENT ATTENDING NOTE: NAME: Enoc Armando CSN: [id number] 79 y.o. PCP: Ryley Jeter MD History: [...] Coronary Angiogram; Surgeon: Elías Rodriguez MD; Location: [facility]; Service: Cardiovascular MN CATH PLMT L HRT & ARTS W/NJX & ANGIO IMG S&I N/A 10/27/2024 Procedure: Left Heart Cath; Surgeon: Elías Rodriguez MD; Location: [facility]; Service: Cardiovascular SKIN CANCER EXCISION 09/2021 L [...] -- 02/28 (more content not included)... Normal [facility] HEMOGLOBIN A1Con 02-28-2025 Glucose [Mass/Vol] 171 mg/dL High 74-114 [facility] Comment on above: Performed By: #### 4 8202 #### LAB [address] [place], [place] [address] Moody Martinez M.D. [id number] HbA1c (Bld) [Mass fraction] 7.6 % High 4.2-5.6 [facility] Comment on above: Performed By: #### 4 8202 #### LAB [address] [place], [place] [address] Moody Martinez M.D. [id number] LACTIC ACID, PLASMAon 2024 LACTIC ACID, PLASMA 2.9 mmol/L High 0.6-2.0 [facility] Comment on above: Performed By: #### 4 4014 #### LAB [address] [address] Moody Martinez M.D. [id number] LEGIONELLA ANTIGEN, URINEon 02-28-2025 LEGIONELLA ANTIGEN, URINE LEGIONELLA ANT IGEN Negative for Legionella antigen COMMENT: Results may be affected if patient is on diuretics. INTERPRETATION OF RESULTS: Test detects Legionella pneumophilia serogroup 1 antigens in urine. Legionnaires disease cannot be ruled out since other serogroups and species may also cause disease. Normal [facility] Comment on above: Performed By: #### 4 4090 #### LAB [address] [address] Moody Martinez M.D. [id number] MRSA DNA AMPLIFIED PROBEon 0 02-28-2025 MRSA DNA AMPLIFIED PROBE Negative Normal Not Detected, MRSA NEGATIVE [facility] Comment on above: Performed By: #### 4 8061 #### LAB [address] [address] Moody Martinez M.D. [id number] NT PRO BNPon 02-28-2025 Natriuretic peptide B (Bld) [Mass/Vol] 9634 pg/mL High 0-300 [facility] Comment on above: Order Comment: Injur y/Trauma or Illness?:Illness/Other How long have you had these symptoms (acute/chronic)?:Acute Reason for exam?:sob History of cancer?:. Surgeries, chemotherapy, or radiation?:cardiac catheterization Type of Exam?:Initial Additional signs and symptoms?:n Performed By: #### 4 7395 #### LAB [address] [address] Moody Martinez M.D. [id number] Natriuretic peptide B (Bld) [Mass/Vol] 3396 pg/mL High 0-300 [facility] Comment on above: Order Comment: Pride Study Cut-offsRule In:< /= 50 Years >450 pg/mL51 Years - 75 Years >900 pg/mL76 Years - 99 Years >1800 pg/mLRule Out:All patients <300 pg/mL Performed By: #### 4 7395 #### LAB [address] [place], [place] [address] Moody Martinez M.D. [id number] OSMOLALITYon 02-28-2025 Osmolality [Osmolality] 328 mosm/kg High 275-295 [facility] Comment on above: Performed By: #### 4 6230 #### LAB [address] [address] Moody Martinez M.D. [id number] PHOSPHORUSon 02-28-2025 Phosphate [Mass/Vol] 2.5 mg/dL Normal 2.3-3.7 [facility] Comment on above: Performed By: #### 4 6299 #### LAB [address] [address] Moody Martinez M.D. [id number] Phosphate [Mass/Vol] 2.7 mg/dL Normal 2.3-3.7 [facility] Comment on above: Performed By: #### 4 6299 #### LAB [address] [address] Moody Martinez M.D. [id number] Phosphate [Mass/Vol] 3.5 mg/dL Normal 2.3-3.7 [facility] Comment on above: Performed By: #### 4 6299 #### LAB [address] [address] Moody Martinez M.D. [id number] POC GLUCOSE - [facility] 025 Glucose [Mass/Vol] 236 mg/dL [facility] [address] Comment on above: Performed By: #### 4 6932 ####[facility] [address] [address] Moody Martinez M.D. [id number] Glucose [Mass/Vol] 153 mg/dL [address] Comment on above: Performed By: #### L [id number] #### [facility] [address] [address] Moody Martinez M.D. [id number] Glucose [Mass/Vol] 57 mg/dL Low [address] [place] [address] Comment on above: Performed By: #### 4 6932 #### LAB [address] [address] Moody Martinez M.D. [id number] Glucose [Mass/Vol] 73 mg/dL Normal [address] [place] [address] Comment on above: Performed By: #### 4 6932 ####[facility] [address] [address] Moody Martinez M.D. [id number] Glucose [Mass/Vol] 102 mg/dL High [address] [place] [address] Comment on above: Performed By: #### L [id number] #### LAB [address] [address] Moody Martinez M.D. [id number] Glucose [Mass/Vol] 119 mg/dL High [address] [place] [address] Comment on above: Performed By: #### 4 6932 #### LAB [address] [address] Moody Martinez M.D. [id number] Glucose [Mass/Vol] 146 mg/dL [address] Comment on above: Performed By: #### 4 6932 #### LAB [address] [address] Moody Martinez M.D. [id number] Glucose [Mass/Vol] 177 mg/dL High [address] [place] [address] Comment on above: Performed By: #### 4 6932 #### LAB [address] [address] Moody Martinez M.D. [id number] Glucose [Mass/Vol] 241 mg/dL High [address] [place] [address] Comment on above: Performed By: #### 4 6932 #### LAB [address] [address] Moody Martinez M.D. [id number] Glucose [Mass/Vol] 326 mg/dL High [address] [place] [address] Comment on above: Performed By: #### 4 6932 #### LAB [address] [address] Moody Martinez M.D. [id number] Glucose [Mass/Vol] 429 mg/dL Off scale high [address] [place] [address] Comment on above: Order Comment: Criti christian result acted upon time of test. Test performed at bedside. Performed By: #### 4 6932 ####[facility] [address] [address] Moody Martinez M.D. [id number] POC GLUCOSE > Off scale high [address] [place] [address] Comment on above: Order Comment: Criti christian result acted upon time of test. Test performed at bedside. Performed By: #### 4 6932 ####[facility] [address] [address] Moody Martinez M.D. [id number] POC GLUCOSE > Off scale high [address] [place] [address] Comment on above: Order Comment: Criti christian result acted upon time of test. Test performed at bedside. Performed By: #### 4 6932 ####[facility] [address] [address] Moody Martinez M.D. [id number] POC VENOUS BLOOD GAS PANEL-P ROSE Lyons 02-28-2025 BASE EXCESS, VENOUS -5.7 Low -2.0-2.0 [facility] Comment on above: Performed By: #### 4 8717 ####[facility] [address] [address] Moody Martinez M.D. [id number] FIO2 50 Normal [facility] Comment on above: Performed By: #### 4 8717 ####[facility] [address] [address] Moody Martinez M.D. [id number] HCO3 (Bld) [Moles/Vol] 19.3 mmol/L Low 24.0-28.0 [facility] Comment on above: Performed By: #### 4 8717 ####[facility] [address] [address] Moody Martinez M.D. [id number] Hematocrit (Bld) [Volume fraction] 37.3 % Low 41.0-53.0 [facility] Comment on above: Performed By: #### 4 8717 #### LAB [address] [address] Moody Martinez M.D. [id number] Hemoglobin (Bld) [Mass/Vol] 12.2 g/dL Low 13.5-17.5 [facility] Comment on above: Performed By: #### 4 8717 #### LAB [address] [address] Moody Martinez M.D. [id number] Oxygen saturation in Blood 93.7 % High 40.0-70.0 [facility] Comment on above: Performed By: #### 4 8717 #### LAB [address] [address] Moody Martinez M.D. [id number] PCO2 VENOUS 35.1 mm Hg Low 41.0-51.0 [facility] Comment on above: Performed By: #### 4 8717 #### LAB [address] [address] Moody Martinez M.D. [id number] PH VENOUS 7.35 Normal 7.32-7.42 [facility] Comment on above: Performed By: #### 4 8717 #### LAB [address] [address] Moody Martinez M.D. [id number] PO2 VENOUS 68 mm Hg High 25-40 [facility] Comment on above: Performed By: #### 4 8717 #### LAB [address] [address] Moody Martinez M.D. [id number] RESP RATE RAD 14 Normal [facility] Comment on above: Performed By: #### 4 8717 #### LAB [address] [address] Moody Martinez M.D. [id number] SPECIMEN SOURCE RADIANCE Not specified [facility] Comment on above: Performed By: #### 4 8717 ####[facility] [address] [address] Moody Martinez M.D. [id number] BASE EXCESS, VENOUS -5.9 Low -2.0-2.0 [facility] [place] [facility] Comment on above: Performed By: #### 4 8717 ####[facility] [address] [address] Moody Martinez M.D. [id number] HCO3 (Bld) [Moles/Vol] 20.5 mmol/L Low 24.0-28.0 [facility] Comment on above: Performed By: #### 4 8717 ####[facility] [address] [address] Moody Martinez M.D. [id number] Hematocrit (Bld) [Volume fraction] 42.0 % Normal 41.0-53.0 [facility] Comment on above: Performed By: #### 4 8717 ####[facility] [address] [address] Moody Martinez M.D. [id number] Hemoglobin (Bld) [Mass/Vol] 13.7 g/dL Normal 13.5-17.5 [facility] Comment on above: Performed By: #### 4 8717 ####[facility] [address] [address] Moody Martinez M.D. [id number] LITER FLOW 2 Normal [facility] Comment on above: Performed By: #### 4 8717 ####[facility] [address] [address] Moody Martinez M.D. [id number] Oxygen saturation in Blood 50.9 % Normal 40.0-70.0 [facility] Comment on above: Performed By: #### 4 8717 ####[facility] [address] [address] Moody Martinez M.D. [id number] PCO2 VENOUS 43.1 mm Hg Normal 41.0-51.0 [facility] Comment on above: Performed By: #### 4 8717 ####[facility] [address] [address] Moody Martinez M.D. [id number] PH VENOUS 7.29 Low 7.32-7.42 [facility] Comment on above: Performed By: #### 4 8717 ####[facility] [address] [address] Moody Martinez M.D. [id number] PO2 VENOUS 30 mm Hg Normal 25-40 [facility] Comment on above: Performed By: #### 4 8717 ####[facility] [address] [address] Moody Martinez M.D. [id number] SPECIMEN SOURCE RADIANCE Not specified Normal [facility] Comment on above: Performed By: #### 4 8717 #### LAB [address] [address] Moody Martinez M.D. [id number] PROCALCITONINon 02-28-2025 PROCALCITONIN 0.18 ng/ml Normal <0.50 [facility] Comment on above: Order Comment: Resul ts <0.50 ng/ml represent a low risk of severe sepsis and/or septic shock. Performed By: #### 4 6932 #### LAB [address] [address] Moody Martinez M.D. [id number] REFLEX LACTIC ACID, PLASMAon 02-28-2025 LACTIC ACID, PLASMA 2.0 mmol/L Normal 0.6-2.0 [facility] Comment on above: Performed By: #### 4 4014 #### LAB [address] [address] Moody Martinez M.D. [id number] LACTIC ACID, PLASMA 3.5 mmol/L High 0.6-2.0 [facility] Comment on above: Performed By: #### L [id number] ####[facility] [address] [address] Moody Martinez M.D. [id number] RESPIRATORY PCR PANELon 02-01 RESPIRATORY PCR PANEL [...] SARS-COV-2 (BIOFIRE) Not Detected Normal Not Detected [facility] Comment on above: Performed By: #### L [id number] ####[facility] [address] Jose Cisse M.D. [id number] S.PNEUMONIAE URINE ANTIGENon 02-28-2025 S.PNEUMONIAE URINE ANTIGEN STREP PNEUMONIAE ANTIGEN, URINE Presumptive Negative for Pneumococcal pneumoniae A negative result does not rule out Streptococcus pneumoniae infection since the antigen present in the sample may be below the detection limit of the test. [facility] Comment on above: Performed By: #### 4 7222 #### LAB [address] [address] Moody Martinez M.D. [id number] SEDIMENTATION RATEon 025 SEDIMENTATION RATE, ERYTHROCYTE 16 mm/hr Normal 0-20 [facility] Comment on above: Performed By: #### 4 6477 #### LAB [address] [address] Moody Martinez M.D. [id number] TROPONIN X 2 (NOW AND REPEAT IN 2 HOURS)on 02-28-2025 TROPONIN T DELTA % NG/L 176 % Off scale high <2 0% of Baseline Troponin [facility] Comment on above: Performed By: #### 4 6608 #### LAB [address] [address] Moody Martinez M.D. [id number] TROPONIN T DELTA CHANGE INTERPRETATION Probable acute injury or myocardial infarction. [facility] Comment on above: Performed By: #### 4 6608 #### LAB [address] [address] Moody Martinez M.D. [id number] TROPONIN T NG/L 207 ng/L Off scale high <=22 [facility] Comment on above: Performed By: #### 4 6608 #### LAB [address] [address] Moody Martinez M.D. [id number] BASELINE TROPONIN T NG/L 75 ng/L Off scale high <=22 [facility] Comment on above: Performed By: #### 4 4014 #### LAB [address] [address] Moody Martinez M.D. [id number] TROPONIN T INTERPRETATION Possible acute cardiac injury. Normal [facility] Comment on above: Performed By: #### 4 4014 #### LAB [address] [address] Moody Martinez M.D. [id number] TSH WITH REFLEX FREE T4on TSH Qn 0.61 m[IU]/L Normal 0.27-4.20 [facility] Comment on above: Performed By: #### 4 6612 #### LAB [address] [address] Moody Martinez M.D. [id number] URINALYSISon 02-28-2025 BACTERIA, URINE None Seen Normal None Seen [facility] Comment on above: Order Comment: Micro scopic examination is performed on all urinalysis samples and only positive findings are reported. The test for blood on the chemical analytic portion of urinalysis may also be positive due to hemoglobinuria and myoglobinuria and if red blood cells are present they are quantified by microscopic examination. Performed By: #### 4 6625 #### LAB [address] [address] Moody Martinez M.D. [id number] BILIRUBIN, URINE Negative Normal Negative [facility] Comment on above: Order Comment: Micro scopic examination is performed on all urinalysis samples and only positive findings are reported. The test for blood on the chemical analytic portion of urinalysis may also be positive due to hemoglobinuria and myoglobinuria and if red blood cells are present they are quantified by microscopic examination. Performed By: #### 4 6625 #### LAB [address] [address] Moody Martinez M.D. [id number] BLOOD, URINE Negative Normal Negative [facility] Comment on above: Order Comment: Micro scopic examination is performed on all urinalysis samples and only positive findings are reported. The test for blood on the chemical analytic portion of urinalysis may also be positive due to hemoglobinuria and myoglobinuria and if red blood cells are present they are quantified by microscopic examination. Performed By: #### 4 6625 #### LAB [address] [address] Moody Martinez M.D. [id number] Clarity (U) Clear Normal Clear [facility] Comment on above: Order Comment: Micro scopic examination is performed on all urinalysis samples and only positive findings are reported. The test for blood on the chemical analytic portion of urinalysis may also be positive due to hemoglobinuria and myoglobinuria and if red blood cells are present they are quantified by microscopic examination. Performed By: #### 4 6625 #### LAB [address] [address] Moody Martinez M.D. [id number] Color (U) Yellow Normal Colorless, Yellow [facility] Comment on above: Order Comment: Micro scopic examination is performed on all urinalysis samples and only positive findings are reported. The test for blood on the chemical analytic portion of urinalysis may also be positive due to hemoglobinuria and myoglobinuria and if red blood cells are present they are quantified by microscopic examination. Performed By: #### 4 6625 #### LAB [address] [address] Moody Martinez M.D. [id number] Glucose Ql (U) >=500 Abnormal Negative [facility] Comment on above: Order Comment: Micro scopic examination is performed on all urinalysis samples and only positive findings are reported. The test for blood on the chemical analytic portion of urinalysis may also be positive due to hemoglobinuria and myoglobinuria and if red blood cells are present they are quantified by microscopic examination. Performed By: #### 4 6625 #### LAB [address] [id number] Moody Martinez M.D. [id number] Hyaline casts LM Ql (Urine sed) 3-5 Abnormal 0-2 [facility] Comment on above: Order Comment: Micro scopic examination is performed on all urinalysis samples and only positive findings are reported. The test for blood on the chemical analytic portion of urinalysis may also be positive due to hemoglobinuria and myoglobinuria and if red blood cells are present they are quantified by microscopic examination. Performed By: #### 4 6625 #### LAB [address] [address] Moody Martinez M.D. [id number] Ketones Ql (U) Trace Abnormal Negative [facility] Comment on above: Order Comment: Micro scopic examination is performed on all urinalysis samples and only positive findings are reported. The test for blood on the chemical analytic portion of urinalysis may also be positive due to hemoglobinuria and myoglobinuria and if red blood cells are present they are quantified by microscopic examination. Performed By: #### 4 6625 #### LAB [address] [id number] Moody Martinez M.D. [id number] Leukocyte esterase Test strip Ql (U) Negative Normal Negative [facility] Comment on above: Order Comment: Micro scopic examination is performed on all urinalysis samples and only positive findings are reported. The test for blood on the chemical analytic portion of urinalysis may also be positive due to hemoglobinuria and myoglobinuria and if red blood cells are present they are quantified by microscopic examination. Performed By: #### 4 6625 #### LAB [address] [id number] Moody Martinez M.D. [id number] MUCUS, URINE Rare Normal None Seen, Rare [facility] Comment on above: Order Comment: Micro scopic examination is performed on all urinalysis samples and only positive findings are reported. The test for blood on the chemical analytic portion of urinalysis may also be positive due to hemoglobinuria and myoglobinuria and if red blood cells are present they are quantified by microscopic examination. Performed By: #### 4 6625 #### LAB [address] [address] Moody Martinez M.D. [id number] NITRITE, URINE Negative Normal Negative [facility] Comment on above: Order Comment: Micro scopic examination is performed on all urinalysis samples and only positive findings are reported. The test for blood on the chemical analytic portion of urinalysis may also be positive due to hemoglobinuria and myoglobinuria and if red blood cells are present they are quantified by microscopic examination. Performed By: #### 4 6625 #### LAB [address] [address] Moody Martinez M.D. [id number] pH (U) 5.5 [pH] Normal 5.0-7.0 [facility] Comment on above: Order Comment: Micro scopic examination is performed on all urinalysis samples and only positive findings are reported. The test for blood on the chemical analytic portion of urinalysis may also be positive due to hemoglobinuria and myoglobinuria and if red blood cells are present they are quantified by microscopic examination. Performed By: #### 4 6625 #### LAB [address] [address] Moody Martinez M.D. [id number] PROTEIN, URINE Negative Normal Negative [facility] Comment on above: Order Comment: Micro scopic examination is performed on all urinalysis samples and only positive findings are reported. The test for blood on the chemical analytic portion of urinalysis may also be positive due to hemoglobinuria and myoglobinuria and if red blood cells are present they are quantified by microscopic examination. Performed By: #### 4 6625 #### LAB [address] [address] Moody Martinez M.D. [id number] RBC LM.HPF (Urine sed) [#/Area] 1 /[HPF] Normal 0-3 [facility] Comment on above: Order Comment: Micro scopic examination is performed on all urinalysis samples and only positive findings are reported. The test for blood on the chemical analytic portion of urinalysis may also be positive due to hemoglobinuria and myoglobinuria and if red blood cells are present they are quantified by microscopic examination. Performed By: #### 4 6625 #### LAB [address] [id number] Moody Martinez M.D. [id number] Specific gravity (U) [Rel density] 1.012 Normal 1.005-1.025 [facility] Comment on above: Order Comment: Micro scopic examination is performed on all urinalysis samples and only positive findings are reported. The test for blood on the chemical analytic portion of urinalysis may also be positive due to hemoglobinuria and myoglobinuria and if red blood cells are present they are quantified by microscopic examination. Performed By: #### 4 6625 #### LAB [address] [place] [address] Moody Martinez M.D. [id number] UROBILINOGEN, URINE <2.0 Normal <2.0 [facility] Comment on above: Order Comment: Micro scopic examination is performed on all urinalysis samples and only positive findings are reported. The test for blood on the chemical analytic portion of urinalysis may also be positive due to hemoglobinuria and myoglobinuria and if red blood cells are present they are quantified by microscopic examination. Performed By: #### 4 6625 #### LAB [address] [place] [address] Moody Martinez M.D. [id number] WBC LM.HPF (Urine sed) [#/Area] 1 /[HPF] Normal 0-5 [facility] Comment on above: Order Comment: Micro scopic examination is performed on all urinalysis samples and only positive findings are reported. The test for blood on the chemical analytic portion of urinalysis may also be positive due to hemoglobinuria and myoglobinuria and if red blood cells are present they are quantified by microscopic examination. Performed By: #### 4 6625 #### LAB [address] [place] [address] Moody Martinez M.D. [id number] URINE AEROBIC CULTUREon 02-01 URINE AEROBIC CULTURE URINE CULTURE < 10,000 CFU/mL of normal urogenital microbiota Normal [facility] Comment on above: Performed By: #### 4 4053 ####[facility] [address] Jose Cisse M.D. [id number] XR CHEST PA/APon 02-28-2025 XR CHEST PA/AP [...] 28, 2025 4:00:36 AM EDT [facility] Comment on above: Order Comment: [...] Not established Performed By: #### 7 909, 04823, 6517 #### [facility] [address] [address] Flumer: Jadon Velez MD ALBUMIN/CREATININE RATIO, RANDOM URINE [...] diagnostic category. Performed By: #### 7 909, 20731, 6517 #### [facility] [address] [place] [address] Flumer: Jadon Velez MD Creatinine (U) [Mass/Vol] 57 mg/dL Normal 20-320 [facility] Comment on above: Performed By: #### 7 909, 64052, 6517 #### [facility] [address] [address] Flumer: Jadon Velez MD [facility] 02-13-2025 Albumin [Mass/Vol] 4.3 g/dL Normal 3.6-5.1 [facility] Comment on above: Performed By: #### 8 66, 7600, 496, 68225, 79188 #### [facility] [address] [address] Flumer: Jadon Velez MD Albumin/Globulin [Mass ratio] 1.7 {ratio} Normal 1.0-2.5 [facility] Comment on above: Performed By: #### 8 66, 7600, 496, 14910, 09168 #### [facility] [address] [place] [address] Flumer: Jadon Velez MD ALP [Catalytic activity/Vol] 61 U/L Normal 35-144 [facility] Comment on above: Performed By: #### 8 66, 7600, 496, 21183, 76293 #### [facility] [address] [place] [address] Flumer: Jadon Velez MD ALT [Catalytic activity/Vol] 12 U/L Normal 9-46 [facility] Comment on above: Performed By: #### 8 66, 7600, 496, 45756, 72146 #### [facility] [address] [place] [address] Flumer: Jadon Velez MD AST [Catalytic activity/Vol] 16 U/L Normal 10-35 [facility] Comment on above: Performed By: #### 8 66, 7600, 496, 28763, 51118 #### [facility] [address] [place] [address] Flumer: Jadon Velez MD Bilirubin [Mass/Vol] 0.5 mg/dL Normal 0.2-1.2 [facility] Comment on above: Performed By: #### 8 66, 7600, 496, 68584, 04151 #### [facility] [address] [place] [address] Flumer: Jadon Velez MD Calcium [Mass/Vol] 9.3 mg/dL Normal 8.6-10.3 [facility] Comment on above: Performed By: #### 8 66, 7600, 496, 74735, 07200 #### [facility] [address] [place] [address] Flumer: Jadon Velez MD Chloride [Moles/Vol] 102 mmol/L Normal 98-110 [facility] Comment on above: Performed By: #### 8 66, 7600, 496, 45232, 61083 #### [facility] [address] [place] [address] Flumer: Jadon Velez MD CO2 [Moles/Vol] 28 mmol/L Normal 20-32 [facility] Comment on above: Performed By: #### 8 66, 7600, 496, 62697, 55351 #### [facility] [address] [place] [address] Flumer: Jadon Velez MD Creatinine [Mass/Vol] 1.76 mg/dL High 0.70-1.[address] [facility] Comment on above: Performed By: #### 8 66, 7600, 496, 76210, 08757 #### [facility] [address], [address] [place] [address] Flumer: Jadon Velez MD GFR/1.73 sq M.predicted among non-blacks MDRD (S/P/Bld) [Vol rate/Area] 38 mL/min/{1.73_m2} Low > OR = 60 [facility] Comment on above: Performed By: #### 8 66, 7600, 496, 76812, 44408 #### [facility] [address], [address] [place] [address] Flumer: Jadon Velez MD Globulin (S) [Mass/Vol] 2.6 g/dL Normal 1.9-3.7 [facility] Comment on above: Performed By: #### 8 66, 7600, 496, 56633, 37737 #### [facility] [address] [place] [address] Flumer: Jadon Velez MD Glucose [Mass/Vol] 242 mg/dL High 65-99 [facility] Comment on above: Result Comment: Fasting reference interval For someone without known diabetes, a glucose value >125 mg/dL indicates that they may have diabetes and this should be confirmed with a follow-up test. Performed By: #### 8 66, 7600, 496, 85159, 33578 #### [facility] [address], [address] [place] [address] Flumer: Jadon Velez MD Potassium [Moles/Vol] 4.6 mmol/L Normal 3.5-5.[address] [facility] Comment on above: Performed By: #### 8 66, 7600, 496, 43184, 72904 #### [facility] [address], [address] [place] [address] Flumer: Jadon Velez MD Protein [Mass/Vol] 6.9 g/dL Normal 6.1-8.1 [facility] Comment on above: Performed By: #### 8 66, 7600, 496, 86478, 49409 #### [facility] of [address], [address] [place] [address] Flumer: Jadon Velez MD Sodium [Moles/Vol] 140 mmol/L Normal 135-146 [facility] Comment on above: Performed By: #### 8 66, 7600, 496, 88300, 23525 #### [facility] of [address], [address] [place] [address] Flumer: Jadon Velez MD Urea nitrogen [Mass/Vol] 38 mg/dL High 7-25 [facility] Comment on above: Performed By: #### 8 66, 7600, 496, 07518, 87620 #### [facility] of [address], [address] [place] [address] Flumer: Jadon Velez MD Urea nitrogen/Creatinine [Mass ratio] 22 mg/mg Normal 6-22 [facility] Comment on above: Performed By: #### 8 66, 7600, 496, 60498, 51470 #### [facility] of [address], [address] [place] [address] Flumer: Jadon Velez MD COMPREHENSIVE METABOLIC PANE L W/ANION GAPon 02-13-2025 Albumin [Mass/Vol] 4.3 g/dL Normal 3.6-5.1 [facility] Comment on above: Performed By: #### 7 479, 11359, 5417 #### [facility] [address] [place] [address] Flumer: Jadon Velez MD ALP [Catalytic activity/Vol] 60 U/L Normal 35-144 [facility] Comment on above: Performed By: #### 7 799, 30719, 9617 #### [facility] [address] [place] [address] Flumer: Jadon Velez MD ALT [Catalytic activity/Vol] 11 U/L Normal 9-46 [facility] Comment on above: Performed By: #### 7 90, 94897, 6517 #### [facility] [address] [place] [address] Flumer: Jadon Velez MD AST [Catalytic activity/Vol] 15 U/L Normal 10-35 [facility] Comment on above: Performed By: #### 7 90, 43123, 17 #### [facility] [address] [place] [address] Flumer: Jaodn Velez MD Bilirubin [Mass/Vol] 0.5 mg/dL Normal 0.2-1.2 [facility] Comment on above: Performed By: #### 7 90, 66976, 17 #### [facility] [address] [place] [address] Flumer: Jadon Velez MD Calcium [Mass/Vol] 9.3 mg/dL Normal 8.6-10.3 [facility] Comment on above: Performed By: #### 7 90, 72909, 6517 #### [facility] [address] [place] [address] Flumer: Jadon Velez MD Chloride [Moles/Vol] 102 mmol/L Normal 98-110 [facility] Comment on above: Performed By: #### 7 90, 14653, 6517 #### [facility] [address] [place] [address] Flumer: Jadon Velez MD CO2 [Moles/Vol] 28 mmol/L Normal 20-32 [facility] Comment on above: Performed By: #### 7 90, 41831, 6517 #### [facility] [address] [place] [address] Flumer: Jadon Velez MD Creatinine [Mass/Vol] 1.80 mg/dL High 0.70-1.[address] [facility] Comment on above: Performed By: #### 7 909, 79168, 6517 #### [facility] [address], [address] [place] [address] Flumer: Jadon Velez MD ELECTROLYTE BALANCE 10 mmol/L (calc) Normal 05-17 [facility] Comment on above: Performed By: #### 7 909, 73887, 6517 #### [facility] [address], [address] [place] [address] Flumer: Jadon Velez MD GFR/1.73 sq M.predicted among non-blacks MDRD (S/P/Bld) [Vol rate/Area] 37 mL/min/{1.73_m2} Low > OR = 60 [facility] Comment on above: Performed By: #### 7 90, 14388, 6517 #### [facility] [address], [address] [place] [address] Flumer: Jadon Velez MD Glucose [Mass/Vol] 241 mg/dL High [facility] Comment on above: Result Comment: Fasting reference interval For someone without known diabetes, a glucose value >125 mg/dL indicates that they may have diabetes and this should be confirmed with a follow-up test. Performed By: #### 7 90, 35125, 6517 #### [facility] [address], [address] [place] [address] Flumer: Jadon Velez MD Potassium [Moles/Vol] 4.7 mmol/L Normal 3.5-5.3 [facility] Comment on above: Performed By: #### 7 90, 29423, 6517 #### [facility] [address] [address] Flumer: Jadon Velez MD Protein [Mass/Vol] 6.7 g/dL Normal 6.1-8.1 [facility] Comment on above: Performed By: #### 7 90, 85689, 6517 #### [facility] [address] [place] [address] Flumer: Jadon Velez MD Sodium [Moles/Vol] 140 mmol/L Normal 135-146 [facility] Comment on above: Performed By: #### 7 909, 44284, 4445 #### [facility] [address] [place] [address], [address] Flumer: Jadon Velez MD Urea nitrogen [Mass/Vol] 38 mg/dL High 7-25 [facility] Comment on above: Performed By: #### 7 909, 34102, 2017 #### [facility] [address] [place] [address], [address] Flumer: Jadon Velez MD Comprehensive metabolic 2000 panelon 02-13-2025 Albumin [Mass/Vol] 4.3 g/dL 3.6 - 5.1 g/dL [facility] Albumin/Globulin [Mass ratio] 1.7 {ratio} [facility] ALP [Catalytic activity/Vol] 61 U/L 35 - 144 U/L [facility] ALT [Catalytic activity/Vol] 12 U/L 9 - 46 U/L [facility] AST [Catalytic activity/Vol] 16 U/L 10 - 35 U/L [facility] Bilirubin [Mass/Vol] 0.5 mg/dL 0.2 - 1 .2 mg/dL [facility] Calcium [Mass/Vol] 9.3 mg/dL 8.6 - 10. 3 mg/dL [facility] Chloride [Moles/Vol] 102 mmol/L 98 - 11 0 mmol/L [facility] CO2 [Moles/Vol] 28 mmol/L 20 - 32 mmol/L [facility] Creatinine [Mass/Vol] 1.76 mg/dL High 0.70 - 1.22 mg/dL [facility] GFR/1.73 sq M.predicted among non-blacks MDRD (S/P/Bld) [Vol rate/Area] 38 mL/min/{1.73_m2} Low > OR = 60 mL/min/1.73m2 [facility] Globulin (S) [Mass/Vol] 2.6 g/dL [facility] Glucose [Mass/Vol] 242 mg/dL High 65 - 99 mg/dL [facility] Comment on above: Fasting reference interval For someone without known diabetes, a glucose value >125 mg/dL indicates that they may have diabetes and this should be confirmed with a follow-up test. Interpretation and review of laboratory results Abnormal [facility] Potassium [Moles/Vol] 4.6 mmol/L 3.5 - 5.3 mmol/L [facility] Protein [Mass/Vol] 6.9 g/dL 6.1 - 8.1 g/dL [facility] Sodium [Moles/Vol] 140 mmol/L 135 - 146 mmol/L [facility] Urea nitrogen [Mass/Vol] 38 mg/dL High 7 - 25 mg/d L [facility] Urea nitrogen/Creatinine [Mass ratio] 22 mg/mg [facility] HEMOGLOBIN A1con 02-13-2025 HbA1c (Bld) [Mass fraction] 7.4 % High <5.7 [facility] Comment on above: Result Comment: For [...] for children. Performed By: #### 7 909, 47628, 6517 #### [facility] [address], [address] [place] [address] Flumer: Jadon Velez MD HbA1c (Bld) [Mass fraction]o n 02-13-2025 Interpretation and review of laboratory results Abnormal [facility] Hemoglobin A1con 02-13-2025 HbA1c (Bld) [Mass fraction] 7.4 % High NINF - 5.7 % [facility] Comment on above: For someone [...] Performed By: #### 8 66, 7600, 496, 88260, 98073 #### [facility] [address], [address] [place], [place] [address] Flumer: Jadon Velez MD Cholesterol in HDL [Mass/Vol] 57 mg/dL Normal > OR = 40 [facility] Comment on above: Performed By: #### 8 66, 7600, 496, 02640, 04872 #### [facility] [address], [address] [place], [place] [address] Flumer: Jadon Velez MD Cholesterol in LDL [Mass/Vol] [...] Ramon SS et al. ANA LAURA. 2013;310(19): 7317-6647 (http://education.[employer]/faq/IXD619) Performed By: #### 8 66, 7600, 496, 09436, 19233 #### [facility] [address] [place] [address] Flumer: Jadon Velez MD Cholesterol.total/Cholest santos in HDL [Mass ratio] 2.6 {ratio} Normal <5.0 [facility] Comment on above: Performed By: #### 8 66, 7600, 496, 17096, 19583 #### [facility] [place] [id number] Flumer: Jadon Velez MD NON HDL CHOLESTEROL 91 mg/dL (calc) Normal <130 [facility] Comment on above: Result Comment: For patients with diabetes plus 1 major ASCVD risk factor, treating to a non-HDL-C goal of <100 mg/dL (LDL-C of <70 mg/dL) is considered a therapeutic option. Performed By: #### 8 66, 7600, 496, 70271, 84974 #### [facility] [address], [address] [place] [address] Flumer: Jadon Velez MD Triglyceride [Mass/Vol] 85 mg/dL Normal <150 [facility] Comment on above: Performed By: #### 8 66, 7600, 496, 36312, 55219 #### [facility] [address], [address] [place] [address] Flumer: Jadon Velez MD Lipid 1996 panelon 5 Cholesterol [Mass/Vol] 148 mg/dL [facility] - 200 mg/dL [facility] Cholesterol in HDL [Mass/Vol] 57 mg/dL > OR = 40 [facility] Cholesterol in LDL [Mass/Vol] 74 mg/dL mg/dL (calc) [facility] Comment on above: Reference range: [...] Ramon SORIA et al. ANA LAURA. 2013;310(19): 1860-2193 (http://education.[employer]/faq/QXK230) Cholesterol non HDL [Mass/Vol] 91 mg/dL [facility] Comment on above: For patients with di abetes plus 1 major ASCVD risk factor, treating to a non-HDL-C goal of <100 mg/dL (LDL-C of <70 mg/dL) is considered a therapeutic option. Cholesterol.total/Cholest santos in HDL [Mass ratio] 2.6 {ratio} [facility] Triglyceride [Mass/Vol] 85 mg/dL [facility] - 150 mg/dL [facility] NOTEon 02-13-2025 NOTE Normal [facility] Comment on above: Result Comment: This urine was analyzed for the presence of WBC, RBC, bacteria, casts, and other formed elements. Only those elements seen were reported. Performed By: #### 7 909, 87094, 6517 #### [facility] of [address], [address] [place] [address] Flumer: Jadon Velez MD No Panel Informationon 02-13 [facility] T4, FREEon 02-13-2025 Free T4 [Mass/Vol] 1.4 ng/dL Normal 0.8-1.8 [facility] Comment on above: Performed By: #### 7 909, 71954, 6517 #### [facility] of [address], [address] [place] [address] Flumer: Jadon Velez MD TSH W/REFLEX TO FT4on 2024 TSH W/REFLEX TO FT4 0.36 mIU/L Low 0.40-4.50 [facility] Comment on above: Performed By: #### 8 66, 7600, 496, 54130, 94730 #### [facility] [place] [address] Flumer: Jadon Velez MD URINALYSIS REFLEXon 02-14-20 25 Appearance (U) CLEAR Normal CLEAR [facility] Comment on above: Performed By: #### 7 909, 14440, 6517 #### [facility] [place] [address] Flumer: Jadon Velez MD BACTERIA NONE SEEN Normal NONE SEEN [facility] Comment on above: Performed By: #### 7 909, 99852, 6517 #### [facility] [place] [address] Flumer: Jadon Velze MD Bilirubin Ql (U) Negative Normal NEGATIVE [facility] Comment on above: Performed By: #### 7 909, 03376, 6517 #### [facility] [place] [address] Flumer: Jadon Velez MD Color (U) YELLOW Normal YELLOW [facility] Comment on above: Performed By: #### 7 909, 54189, 6517 #### [facility] [place] [address] Flumer: Jadon Velez MD Glucose Ql (U) Negative Normal NEGATIVE [facility] Comment on above: Performed By: #### 7 909, 23829, 6517 #### [facility] [place] [address] Flumer: Jadon Velez MD HYALINE CAST NONE SEEN Normal NONE SEEN [facility] Comment on above: Performed By: #### 7 909, 96252, 6517 #### [facility] [place] [address] Flumer: Jadon Velez MD Ketones Ql (U) Negative Normal NEGATIVE [facility] Comment on above: Performed By: #### 7 909, 16319, 6517 #### [facility] [place] [address] Flumer: Jadon Velez MD Leukocyte esterase Test strip Ql (U) TRACE Abnormal NEGATIVE [facility] Comment on above: Performed By: #### 7 909, 40439, 6517 #### [facility] [place] [address] Flumer: Jadon Velez MD Nitrite Ql (U) Negative Normal NEGATIVE [facility] Comment on above: Performed By: #### 7 909, 80775, 6517 #### [facility] [place] [address] Flumer: Jadon Velez MD OCCULT BLOOD Negative Normal NEGATIVE [facility] Comment on above: Performed By: #### 7 909, 87260, 6517 #### [facility] [place] [address] Flumer: Jadon Velez MD pH (U) 6.0 [pH] Normal 5.0-8.0 [facility] Comment on above: Performed By: #### 7 909, 44873, 6517 #### [facility] of [address], [address] [place] [address] Flumer: Jadon Velez MD Protein Ql (U) 1+ Abnormal NEGATIVE [facility] Comment on above: Performed By: #### 7 909, 88328, 6517 #### [facility] [place] [address] Flumer: Jadon Velez MD RBC NONE SEEN Normal < OR = 2 [facility] Comment on above: Performed By: #### 7 909, 56324, 6517 #### [facility] [place] [address] Flumer: Jadon Velez MD Specific gravity (U) [Rel density] 1.011 Normal 1.001-1.035 [facility] Comment on above: Performed By: #### 7 909, 63293, 6517 #### [facility] [place] [address] Flumer: Jadon Velez MD SQUAMOUS EPITHELIAL CELLS NONE SEEN Normal < OR = 5 [facility] Comment on above: Performed By: #### 7 909, 44648, 6517 #### [facility] [place] [address] Flumer: Jadon Velez MD WBC 0-5 Normal < OR = 5 [facility] Comment on above: Performed By: #### 7 909, 09407, 6517 #### [facility] [place] [address] Flumer: Jadon Velez MD Anion gap in Serum or Plasma Ordered By: Kerwin Tamayo on 02-06-2025 Anion gap [Moles/Vol] 12 mmol/L - [facility] BUN/creatinine ratioOrdered By: Kerwin Tamayo on 02-06-2025 Urea nitrogen/Creatinine [Mass ratio] 23.1 mg/mg High - [facility] Basic Metabolic Profile (BMP )on 04-08-2025 BUN/CRE 23.1 RATIO High 10-20 [facility] Comment on above: Performed By: #### L 500.2500, L100.0500 ####[facility] [address] [place], [address] Calcium [Mass/Vol] 9.1 mg/dL Normal 7.6-11.0 [facility] Comment on above: Performed By: #### L 500.2500, L100.0500 ####[facility] [address] [place], [address] Chloride [Moles/Vol] 103 mmol/L Normal 98-108 [facility] Comment on above: Performed By: #### L 500.2500, L100.0500 ####[facility] [address] [place], [address] CO2 [Moles/Vol] 23.7 mmol/L Normal 21.0-32.0 [facility] Comment on above: Performed By: #### L 500.2500, L100.0500 ####[facility] [address] [place], [address] Creatinine [Mass/Vol] 1.88 mg/dL High 0.70-1.20 [facility] Comment on above: Performed By: #### L 500.2500, L100.0500 ####[facility] [address] [place], [address] GAP 12 Normal 5-15 [facility] Comment on above: Performed By: #### L 500.2500, L100.0500 ####[facility] [address] [place], [address] GFR/1.73 sq M.predicted among non-blacks MDRD (S/P/Bld) [Vol rate/Area] 35 mL/min/{1.73_m2} Low >60 [facility] Comment on above: Result Comment: mL/m in/1.73m2 CKD-EPI Creatinine Equation (2020) Performed By: #### L 500.2500, L100.0500 ####[facility] [address] [place], [address] Glucose [Mass/Vol] 287 mg/dL High 70-99 [facility] Comment on above: Performed By: #### L 500.2500, L100.0500 ####[facility] [address] [place], [address] Potassium [Moles/Vol] 4.4 mmol/L Normal 3.3-5.1 [facility] Comment on above: Performed By: #### L 500.2500, L100.0500 ####[facility] [address] [place], [address] Sodium [Moles/Vol] 139 mmol/L Normal 133-145 [facility] Comment on above: Performed By: #### L 500.2500, L100.0500 ####[facility] [address] [place], [address] Urea nitrogen [Mass/Vol] 44 mg/dL High 4-19 [facility] Comment on above: Performed By: #### L 500.2500, L100.0500 ####[facility] [address] [place], [address] CBC-Complete Blood Cnt No Di ffon 02-06-2025 Erythrocyte distribution width (RBC) [Ratio] 13.0 % Normal 11.6-14.6 [facility] Comment on above: Performed By: #### L 500.2500, L100.0500 ####[facility] [address] [place], [address] Hematocrit (Bld) [Volume fraction] 33.8 % Low 40-54 [facility] Comment on above: Performed By: #### L 500.2500, L100.0500 ####[facility] [address] [place], [address] Hemoglobin (Bld) [Mass/Vol] 11.0 g/dL Low 13.0-16.5 [facility] Comment on above: Performed By: #### L 500.2500, L100.0500 ####[facility] [address] [place], [address] MCH (RBC) [Entitic mass] 31.0 pg Normal 27.0-32.0 [facility] Comment on above: Performed By: #### L 500.2500, L100.0500 ####[facility] [address] [place], [address] MCHC (RBC) [Mass/Vol] 32.5 g/dL Normal 32-36 [facility] Comment on above: Performed By: #### L 500.2500, L100.0500 ####[facility] [address] [place], [address] MCV (RBC) [Entitic vol] 95.2 fL High 80-94 [facility] Comment on above: Performed By: #### L 500.2500, L100.0500 ####[facility] [address] [place], [address] Platelet mean volume (Bld) [Entitic vol] 11.2 fL Normal 6.2-12.0 [facility] Comment on above: Performed By: #### L 500.2500, L100.0500 ####[facility] [address] [place], [address] Platelets (Bld) [#/Vol] 239 10*3/uL Normal 150-450 [facility] Comment on above: Performed By: #### L 500.2500, L100.0500 ####[facility] [address] [place], [address] RBC (Bld) [#/Vol] 3.55 10*6/uL Low 4.6-6.2 [facility] Comment on above: Performed By: #### L 500.2500, L100.0500 ####[facility] [address] [place], [address] RDW SD 45.3 fl High 35.1-43.9 [facility] Comment on above: Performed By: #### L 500.2500, L100.0500 ####[facility] [address] [place], [address] WBC (Bld) [#/Vol] 8.9 10*3/uL Normal 4.4-11.0 [facility] Comment on above: Performed By: #### L 500.2500, L100.0500 ####[facility] [address] [place], [address] Carbon dioxide, total [Moles /volume] in Central venous bloodOrdered By: Kerwin Tamayo on 02-06-2025 CO2 [Moles/Vol] 23.7 mmol/L 21.0-32.0 [facility] Chloride assayOrdered By: Daniela Tamayo on 02-06-2025 Chloride [Moles/Vol] 103 mmol/L 98-108 [facility] Erythrocyte distribution wid th (RBC) [Ratio]Ordered By: Kerwin Tamayo on 02-06-2025 Erythrocyte distribution width (RBC) [Entitic vol] 45.3 fL High 35.1-43.9 [facility] Erythrocyte distribution wid th ratioOrdered By: Kerwin Tamayo on 02-06-2025 Erythrocyte distribution width (RBC) [Ratio] 13.0 % 11.6-14.6 [facility] Erythrocyte distribution wid th standard deviationOrdered By: Kerwin Tamayo on 02-06-2025 Erythrocyte distribution width (RBC) [Ratio] 45.3 fl High 35.1-43.9 [facility] GFR/1.73 sq M.predicted park g non-blacks MDRD (S/P/Bld) [Vol rate/Area]Ordered By: Kerwin Tamayo on 02-06-2025 Estimated GFR (MDRD) Non-Af Amer 35 Low >60 [facility] Comment on above: mL/min/1.73m2 CKD-EP I Creatinine Equation (2020) Glomerular filtration rate ( GFR) estimation/1.73 sq m using serum, plasma, or whole bOrdered By: Kerwin Tamayo on 02-06-2025 GFR/1.73 sq M.predicted among non-blacks MDRD (S/P/Bld) [Vol rate/Area] 35 mL/min/{1.73_m2} Low >60 [facility] Comment on above: mL/min/1.73m2 CKD-EP I Creatinine Equation (2020) Hematocrit Auto (Bld) [Volum e fraction]Ordered By: Kerwin Tamayo on 02-06-2025 Hematocrit (Bld) [Volume fraction] 33.8 % Low 40-54 [facility] Hemoglobin measurementOrdere d By: Kerwin Tamayo on 02-06-2025 Hemoglobin (Bld) [Mass/Vol] 11.0 g/dL Low 13.0-16.5 [facility] MCV (mean corpuscular volume ) determinationOrdered By: Kerwin Tamayo on 02-06-2025 MCV (RBC) [Entitic vol] 95.2 fL High 80-94 [facility] Mean corpuscular hemoglobin (MCH) determinationOrdered By: Kerwin Tamayo on 02-06-2025 MCH (RBC) [Entitic mass] 31.0 pg 27.0-32.0 [facility] Mean corpuscular hemoglobin concentration (MCHC) determinationOrdered By: Kerwin Tamayo on 02-06-2025 MCHC (RBC) [Mass/Vol] 32.5 g/dL 32-36 [facility] Mean platelet volume determi nationOrdered By: Kerwin Tamayo on 02-06-2025 Platelet mean volume (Bld) [Entitic vol] 11.2 fL 6.2-12.0 [facility] Platelet countOrdered By: Daniela Tamayo on 02-06-2025 Platelets (Bld) [#/Vol] 239 10*3/uL 150-450 [facility] Potassium (Unsp spec) [Mass/ Vol]Ordered By: Kerwin Tamayo on 02-06-2025 Potassium [Moles/Vol] 4.4 mmol/L 3.3-5.1 [facility] Potassium measurement (mass/ volume)Ordered By: Kerwin Tamayo on 02-06-2025 Potassium (Unsp spec) [Mass/Vol] 4.4 mmol/L 3.3-5.1 [facility] RBC Auto (Bld) [#/Vol]Ordere d By: Kerwin Tamayo on 02-06-2025 RBC (Bld) [#/Vol] 3.55 10*6/uL Low 4.6-6.2 [facility] Serum creatinine measurement (mass/volume)Ordered By: Kerwin Tamayo on 02-06-2025 Creatinine [Mass/Vol] 1.88 mg/dL High 0.70-1.20 [facility] Serum glucose measurement (m ass/volume)Ordered By: Kerwin Tamayo on 02-06-2025 Glucose [Mass/Vol] 287 mg/dL High 70-99 [facility] Serum or plasma calcium nikkie urement (mass/volume)Ordered By: Kerwin Tamayo on 02-06-2025 Calcium [Mass/Vol] 9.1 mg/dL 7.6-11.0 [facility] Serum or plasma urea nitroge n measurement (mass/volume)Ordered By: Kewrin Tamayo on 02-06-2025 Urea nitrogen [Mass/Vol] 44 mg/dL High 4-19 [facility] Sodium levelOrdered By: Aaron Tamayo on 02-06-2025 Sodium [Moles/Vol] 139 mmol/L 133-145 [facility] White blood cell (WBC) count Ordered By: Kerwin Tamayo on 02-06-2025 WBC (Bld) [#/Vol] 8.9 10*3/uL 4.4-11.0 [facility] CBC W Auto Differential pane l (Bld)on 11-06-2024 Basophils (Bld) [#/Vol] 0.08 x10*3/uL Normal 0.00-0.10 [facility] Comment on above: Performed By: #### 5 7021-8 #### MAGIG PARNELL ([id number]) [facility] ([facility]) [address] [place] [address] Basophils/100 WBC (Bld) 0.8 % Normal 0.0-2.0 [facility] Comment on above: Performed By: #### 7021-8 #### MAGGI PARNELL ([id number]) [facility] ([facility]) [address] [place] [address] 58618 Eosinophils (Bld) [#/Vol] 0.42 x10*3/uL High 0.00-0. 40 [facility] Comment on above: Performed By: #### 7021-8 #### MAGGI PARNELL ([id number]) [facility] ([facility]) [address] [place] [address] 35981 Eosinophils/100 WBC (Bld) 4.4 % Normal 0.0-6.0 [facility] Comment on above: Performed By: #### 7021-8 #### MAGGI PARNELL ([id number]) [facility] ([facility]) [address] [place] [address] 21359 Erythrocyte distribution width (RBC) [Ratio] 14.5 % Normal 11.5-14.5 [facility] Comment on above: Performed By: #### 5 7021-8 #### MAGGI PARNELL ([id number]) [facility] ([facility]) [address] [place] [address] 88958 Hematocrit (Bld) [Volume fraction] 34.5 % Low 41.0-52.0 [facility] Comment on above: Performed By: #### 7021-8 #### MAGGI PARNELL ([id number]) [facility] ([facility]) [address] [place] [address]68[address] Hemoglobin (Bld) [Mass/Vol] 10.6 g/dL Low 13.5-17.5 [facility] Comment on above: Performed By: #### 5 7021-8 #### MAGGI PARNELL ([id number]) [facility] ([facility]) [address] [place] [address] 61779 Immature granulocytes (Bld) [#/Vol] 0.03 x10*3/uL Normal 0.00-0.50 [facility] Comment on above: Performed By: #### 5 7021-8 #### MAGGI PARNELL ([id number]) [facility] ([facility]) [address] [place] [address] 86971 Immature granulocytes/100 WBC (Bld) 0.3 % Normal 0.0-0.9 [facility] Comment on above: Result Comment: Arielle ture Granulocyte Count (IG) includes promyelocytes, myelocytes and metamyelocytes but does not include bands. Percent differential counts (%) should be interpreted in the context of the absolute cell counts (cells/UL). Performed By: #### 5 7021-8 #### MAGGI PARNELL ([id number]) [facility] ([facility]) [address] [place] [address] 42338 Lymphocytes (Bld) [#/Vol] 2.35 x10*3/uL Normal 0.80-3. 00 [facility] Comment on above: Performed By: #### 5 7021-8 #### MAGGI PARNELL ([id number]) [facility] ([facility]) [address] [place] [address] 89790 Lymphocytes/100 WBC (Bld) 24.5 % Normal 13.0-44.0 [facility] Comment on above: Performed By: #### 5 7021-8 #### MAGGI PARNELL ([id number]) [facility] ([facility]) [address] [place] [address] 81247 MCH (RBC) [Entitic mass] 30.3 pg Normal 26.0-34.0 [facility] Comment on above: Performed By: #### 5 7021-8 #### MAGGI PARNELL ([id number]) [facility] ([facility]) [address] [place] [address] 72247 MCHC (RBC) [Mass/Vol] 30.7 g/dL Low 32.0-36.0 [facility] Comment on above: Performed By: #### 5 7021-8 #### MAGGI PARNELL ([id number]) [facility] ([facility]) [address] [place] [address] 58522 MCV (RBC) [Entitic vol] 99 fL Normal 80-100 [facility] Comment on above: Performed By: #### 5 7021-8 #### MAGGI PARNELL ([id number]) [facility] ([facility]) [address] [place] [address] 50521 Monocytes (Bld) [#/Vol] 0.82 x10*3/uL High 0.05-0.80 [facility] Comment on above: Performed By: #### 5 7021-8 #### MAGGI PARNELL ([id number]) [facility] ([facility]) [address] [place] [address] 87534 Monocytes/100 WBC (Bld) 8.6 % Normal 2.0-10.0 [facility] Comment on above: Performed By: #### 5 7021-8 #### MAGGI PARNELL ([id number]) [facility] ([facility]) [address] [place] [address] 31800 Neutrophils (Bld) [#/Vol] 5.89 x10*3/uL High 1.60-5. 50 [facility] Comment on above: Result Comment: Perc ent differential counts (%) should be interpreted in the context of the absolute cell counts (cells/uL). Performed By: #### 5 7021-8 #### MAGGI PARNELL ([id number]) [facility] ([facility]) [address] [place] [address] 60547 Neutrophils/100 WBC (Bld) 61.4 % Normal 40.0-80.0 [facility] Comment on above: Performed By: #### 5 7021-8 #### MAGGI PARNELL ([id number]) [facility] ([facility]) [address] [place] [address] 58064 Nucleated RBC/100 WBC (Bld) [Ratio] 0.0 /100 WBCs Normal 0.0-0.0 [facility] Comment on above: Performed By: #### 5 7021-8 #### MAGGI PARNELL ([id number]) [facility] ([facility]) [address] [place] [address] 28911 Platelets (Bld) [#/Vol] 229 x10*3/uL Normal 150-450 [facility] Comment on above: Performed By: #### 5 7021-8 #### MAGGI PARNELL ([id number]) [facility] ([facility]) [address] [place] [address] 77353 RBC (Bld) [#/Vol] 3.50 x10*6/uL Low 4.50-5.90 [facility] Comment on above: Performed By: #### 5 7021-8 #### MAGGI PARNELL ([id number]) [facility] ([facility]) [address] [place] [address] 48739 WBC (Bld) [#/Vol] 9.6 x10*3/uL Normal 4.4-11.3 [facility] Comment on above: Performed By: #### 5 7021-8 #### MAGGI PARNELL ([id number]) [facility] ([facility]) [address] [place] [address] 28878 Comprehensive metabolic 2000 panelon 11-06-2024 Albumin BCP dye [Mass/Vol] 3.7 g/dL Normal 3.4-5.0 [facility] Comment on above: Performed By: #### 1 4959-1 #### ALENA Paredes ([id number]) [facility] ([facility]) [address] [place] [address] ALP [Catalytic activity/Vol] 68 U/L Normal 33-136 [facility] Comment on above: Performed By: #### 1 4959-1 #### ALENA Paredes ([id number]) [facility] ([facility]) [address] [place] [address] ALT With P-5'-P [Catalytic activity/Vol] 19 U/L Normal 10-52 [facility] Comment on above: Result Comment: Twila ents treated with Sulfasalazine may generate falsely decreased results for ALT. Performed By: #### 1 4959-1 #### ALENA Paredes ([id number]) [facility] ([facility]) [address] [place] [address] Anion gap [Moles/Vol] 12 mmol/L Normal 10-20 [facility] Comment on above: Performed By: #### 1 4959-1 #### ALENA Paredes ([id number]) [facility] ([facility]) [address] [place] [address] AST With P-5'-P [Catalytic activity/Vol] 19 U/L Normal 9-39 [facility] Comment on above: Performed By: #### 1 4959-1 #### ALENA Paredes ([id number]) [facility] ([facility]) [address] [place] [address] Bilirubin [Mass/Vol] 0.3 mg/dL Normal 0.0-1.2 [facility] Comment on above: Performed By: #### 1 4959-1 #### ALENA Paredes ([id number]) [facility] ([facility]) [id number] [place] [address] Calcium [Mass/Vol] 8.9 mg/dL Normal 8.6-10.3 [facility] Comment on above: Performed By: #### 1 4959-1 #### ALENA Paredes ([id number]) [facility] ([facility]) [address] [place] [address] Chloride [Moles/Vol] 108 mmol/L High 98-107 [facility] Comment on above: Performed By: #### 1 4959-1 #### ALENA Paredes ([id number]) [facility] ([facility]) [address] [place] [address] CO2 [Moles/Vol] 23 mmol/L Normal 21-32 [facility] Comment on above: Performed By: #### 1 4959-1 #### ALENA Paredes ([id number]) [facility] ([facility]) [address] [place] [address] Creatinine [Mass/Vol] 2.37 mg/dL High 0.50-1.30 [facility] Comment on above: Performed By: #### 1 4959-1 #### ALENA DAVENPORTER L ([id number]) [facility] ([facility]) [address] [place] [address] Glomerular filtration rate/1.73 sq M.predicted 27 mL/min/1.73m*2 Low >60 [facility] Comment on above: Result Comment: Calc ulations of estimated GFR are performed using the 2020 CKD-EPI Study Refit equation without the race variable for the IDMS-Traceable creatinine methods. https://jasn.asnjournals.org/content//ASN.20 71786521 Performed By: #### 1 4959-1 #### ALENA CORREA L ([id number]) [facility] ([facility]) [id number] [place] [address] Glucose [Mass/Vol] 95 mg/dL Normal 74-99 [facility] Comment on above: Performed By: #### 1 4959-1 #### ALENA TOLBERTMOTZER L ([id number]) [facility] ([facility]) [address] [place] [address] Potassium [Moles/Vol] 4.9 mmol/L Normal 3.5-5.3 [facility] Comment on above: Performed By: #### 1 4959-1 #### ALENA TOLBERTMOTZER L ([id number]) [facility] ([facility]) [address] [place] [address]164 Protein [Mass/Vol] 6.4 g/dL Normal 6.4-8.2 [facility] Comment on above: Performed By: #### 1 4959-1 #### ALENA TOLBERTMOTZER L ([id number]) [facility] ([facility]) [address] [place] [address]65 Sodium [Moles/Vol] 138 mmol/L Normal 136-145 [facility] Comment on above: Performed By: #### 1 4959-1 #### ALENA TOLBERTMOTZALIZA L ([id number]) [facility] ([facility]) [address] [place], [place] [address] Urea nitrogen [Mass/Vol] 48 mg/dL High 6-23 [facility] Comment on above: Performed By: #### 1 4959-1 #### ALENA Paredes ([id number]) [facility] ([facility]) [address] [place], [place] [address] HbA1c (Bld) [Mass fraction]o n 11-06-2024 Average glucose Estimated from glycated hemoglobin (Bld) [Mass/Vol] 220 mg/dL Normal Not Established [facility] Comment on above: Order Comment: Diagn osis of Hbjymext-BrlntxIdq-Idhebmpk: < or = 5.6%Increased risk for developing diabetes: 5.7-6.4%Diagnostic of diabetes: > or = 6.5% Performed By: #### 1 4959-1 #### ALENA Paredes ([id number]) [facility] ([facility]) [address] [place], [place] [address] Hemoglobin A1c/Hemoglobin.to alcira 11-06-2024 HbA1c (Bld) [Mass fraction] 9.3 % High See comment [facility] Comment on above: Order Comment: Diagn osis of Uxcxobip-MxznhrIdb-Rfuyxyff: < or = 5.6%Increased risk for developing diabetes: 5.7-6.4%Diagnostic of diabetes: > or = 6.5% Performed By: #### 1 4959-1 #### ALENA Paredes ([id number]) [facility] ([facility]) [address] [place], [place] [address] Thyrotropinon 11-06-2024 TSH Qn 2.65 m[IU]/L Normal 0.44-3.98 [facility] Comment on above: Order Comment: TSH t esting is performed using different testing methodology at [facility] than at other [facility]. Direct result comparisons should only be made within the same method. Performed By: #### 1 4959-1 #### ALENA Paredes ([id number]) [facility] ([facility]) [address] [place] [address] Thyroxine.freeon 11-06-2024 Free T4 [Mass/Vol] 0.84 ng/dL Normal 0.61-1.12 [facility] Comment on above: Order Comment: Thyro xine Free testing is performed using different testing methodology at [facility] than at other [facility]. Direct result comparisons should only be made [...] By: #### 1 4959-1 #### ALENA Paredes ([id number]) 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 Performed By: #### 4 6124 #### LAB [address] [place], [place] [address] Moody Martinez M.D. 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 [id number] Anion gap [Moles/Vol] 17 mmol/L Normal 10-20 [facility] Comment on above: Order Comment: [facility] has implemented the eGFR calculation approach that does not have a coefficient for race that conforms to the NKF-ASN Task Force Recommendations. Performed By: #### 4 6124 #### LAB [address] [place] [address] Moody Martinez M.D. [id number] Calcium [Mass/Vol] 8.5 mg/dL Normal 8.4-10.2 [facility] Comment on above: Order Comment: [facility] has implemented the eGFR calculation approach that does not have a coefficient for race that conforms to the NKF-ASN Task Force Recommendations. Performed By: #### 4 6124 #### LAB [address] [place] [address] Moody Martinez M.D. [id number] Chloride [Moles/Vol] 108 mmol/L Normal 98-108 [facility] Comment on above: Order Comment: [facility] has implemented the eGFR calculation approach that does not have a coefficient for race that conforms to the NKF-ASN Task Force Recommendations. Performed By: #### 4 6124 #### LAB [address] [place] [address] Moody Martinez M.D. [id number] Creatinine [Mass/Vol] 2.44 mg/dL High 0.80-1.30 [facility] Comment on above: Order Comment: [facility] has implemented the eGFR calculation approach that does not have a coefficient for race that conforms to the NKF-ASN Task Force Recommendations. Performed By: #### 4 6170 #### LAB [address] [place] [address] Moody Martinez M.D. [id number] EGFR 26 mL/min/1.73 m2 Low >=60 [facility] Comment on above: Order Comment: [facility] has implemented the eGFR calculation approach that does not have a coefficient for race that conforms to the NKF-ASN Task Force Recommendations. Result Comment: Albin mated GFR was calculated using the 2020 CKD-EPI creatinine equation. Performed By: #### 4 6124 #### LAB [address] [place] [address] Moody Martinez M.D. [id number] Glucose [Mass/Vol] 107 mg/dL High 65-99 [facility] Comment on above: Order Comment: [facility] has implemented the eGFR calculation approach that does not have a coefficient for race that conforms to the NKF-ASN Task Force Recommendations. Performed By: #### 4 6124 #### LAB [address] [place] [address] Moody Martinez M.D. [id number] HCO3 (Bld) [Moles/Vol] 18 mmol/L Low 21-32 [facility] Comment on above: Order Comment: [facility] has implemented the eGFR calculation approach that does not have a coefficient for race that conforms to the NKF-ASN Task Force Recommendations. Performed By: #### 4 6124 #### LAB [address] [place] [address] Moody Martinez M.D. [id number] Potassium [Moles/Vol] 4.1 mmol/L Normal 3.5-5.1 [facility] Comment on above: Order Comment: [facility] has implemented the eGFR calculation approach that does not have a coefficient for race that conforms to the NKF-ASN Task Force Recommendations. Performed By: #### 4 6129 #### LAB [address] [place] [address] Moody Martinez M.D. [id number] Sodium [Moles/Vol] 139 mmol/L Normal 135-145 [facility] Comment on above: Order Comment: [facility] has implemented the eGFR calculation approach that does not have a coefficient for race that conforms to the NKF-ASN Task Force Recommendations. Performed By: #### 4 6124 #### LAB [address] [place], [place] [address] Moody Martinez M.D. [id number] Urea nitrogen [Mass/Vol] 85 mg/dL High 8-25 [facility] Comment on above: Order Comment: [facility] has implemented the eGFR calculation approach that does not have a coefficient for race that conforms to the NKF-ASN Task Force Recommendations. Performed By: #### 4 6124 #### LAB [address] [place] [address] Moody Martinez M.D. [id number] Urea nitrogen/Creatinine [Mass ratio] 34.8 mg/mg High 10.0-20.0 [facility] Comment on above: Order Comment: [facility] has implemented the eGFR calculation approach that does not have a coefficient for race that conforms to the NKF-ASN Task Force Recommendations. Performed By: #### 4 6124 #### LAB [address] [place] [address] Moody Martinez M.D. [id number] BETA-HYDROXYBUTYRATEon 10-28 BETA-HYDROXYBUTYRATE 0.1 mmol/L Normal 0.0-0.3 [facility] Comment on above: Performed By: #### 4 5139 #### LAB [address] [place] [address] Moody Martinez M.D. [id number] BETA-HYDROXYBUTYRATE < Normal 0.0-0.3 [facility] Comment on above: Performed By: #### 4 5139 #### LAB [address] [place], [place] [address] Moody Martinez M.D. [id number] Basic metabolic 2000 panelon 10-28-2024 Anion gap [Moles/Vol] 16 mmol/L 10 - 2 0 mmol/L [facility] Calcium [Mass/Vol] 8.5 mg/dL 8.4 - 10. 2 mg/dL [facility] Chloride [Moles/Vol] 108 mmol/L 98 - 10 8 mmol/L [facility] Creatinine [Mass/Vol] 2.31 mg/dL High 0.80 - 1.30 mg/dL [facility] GFR/1.73 sq M.predicted CKD-EPI (S/P/Bld) [Vol rate/Area] 28 Low - PINF [facility] Comment on above: Estimated GFR was ca lculated using the 2020 CKD-EPI creatinine equation. Glucose [Mass/Vol] 95 mg/dL 65 - 99 mg/dL [facility] HCO3 [Moles/Vol] 19 mmol/L Low 21 - 32 mmol/L [facility] Potassium [Moles/Vol] 4.1 mmol/L 3.5 - 5.1 mmol/L [facility] Sodium [Moles/Vol] 139 mmol/L 135 - 145 mmol/L [facility] Urea nitrogen [Mass/Vol] 82 mg/dL High 8 - 25 mg/d L [facility] Urea nitrogen/Creatinine [Mass ratio] 35.5 mg/mg High 10.0 - 20.0 [facility] has implemented the eGFR calculation approach that does not have a coefficient for race that conforms to the NKF-ASN Task Force Recommendations. [facility] Anion gap [Moles/Vol] 17 mmol/L 10 - 2 0 mmol/L [facility] Calcium [Mass/Vol] 8.5 mg/dL 8.4 - 10. 2 mg/dL [facility] Chloride [Moles/Vol] 108 mmol/L 98 - 10 8 mmol/L [facility] Creatinine [Mass/Vol] 2.44 mg/dL High 0.80 - 1.30 mg/dL [facility] GFR/1.73 sq M.predicted CKD-EPI (S/P/Bld) [Vol rate/Area] 26 Low - PINF [facility] Comment on above: Estimated GFR was ca lculated using the 2020 CKD-EPI creatinine equation. Glucose [Mass/Vol] 107 mg/dL High 65 - 99 mg/dL [facility] HCO3 [Moles/Vol] 18 mmol/L Low 21 - 32 mmol/L [facility] Potassium [Moles/Vol] 4.1 mmol/L 3.5 - 5.1 mmol/L [facility] Sodium [Moles/Vol] 139 mmol/L 135 - 145 mmol/L [facility] Urea nitrogen [Mass/Vol] 85 mg/dL High 8 - 25 mg/d L [facility] Urea nitrogen/Creatinine [Mass ratio] 34.8 mg/mg High 10.0 - 20.0 [facility] has implemented the eGFR calculation approach that does not have a coefficient for race that conforms to the NKF-ASN Task Force Recommendations. [facility] Anion gap [Moles/Vol] 16 mmol/L 10 - 2 0 mmol/L [facility] Calcium [Mass/Vol] 8.3 mg/dL Low 8.4 - 10. 2 mg/dL [facility] Chloride [Moles/Vol] 103 mmol/L 98 - 10 8 mmol/L [facility] Creatinine [Mass/Vol] 2.6 mg/dL High 0.80 - 1.30 mg/dL [facility] GFR/1.73 sq M.predicted CKD-EPI (S/P/Bld) [Vol rate/Area] 24 Low - PINF [facility] Comment on above: Estimated GFR was ca lculated using the 2020 CKD-EPI creatinine equation. Glucose [Mass/Vol] 495 mg/dL Critically high 65 - 99 mg/d L [facility] HCO3 [Moles/Vol] 18 mmol/L Low 21 - 32 mmol/L [facility] Potassium [Moles/Vol] 5 mmol/L 3.5 - 5.1 mmol/L [facility] Sodium [Moles/Vol] 132 mmol/L Low 135 - 145 mmol/L [facility] Urea nitrogen [Mass/Vol] 93 mg/dL High 8 - 25 mg/d L [facility] Urea nitrogen/Creatinine [Mass ratio] 35.8 mg/mg High 10.0 - 20.0 [facility] has implemented the eGFR calculation approach that does not have a coefficient for race that conforms to the NKF-ASN Task Force Recommendations. [facility] Beta hydroxybutyrate [Moles/ Vol]on 10-28-2024 Interpretation and review of laboratory results Normal [facility] Interpretation and review of laboratory results Normal [facility] Interpretation and review of laboratory results Abnormal [facility] Beta-Hydroxybutyrateon 10-28 Beta hydroxybutyrate [Moles/Vol] 0.1 mmol/L 0.0 - 0.3 mmol/L [facility] Beta hydroxybutyrate [Moles/Vol] mmol/L 0.0 - 0.3 mmol/L [facility] Beta hydroxybutyrate [Moles/Vol] 0.4 mmol/L High 0.0 - 0.3 mmol/L [facility] CBC Auto Differentialon 12-2 8-2024 Basophils (Bld) [#/Vol] 0.08 10*3/uL [facility] Basophils/100 WBC (Bld) 0.8 % [facility] Eosinophils (Bld) [#/Vol] 0.06 10*3/uL [facility] Eosinophils/100 WBC (Bld) 0.6 % [facility] Erythrocyte distribution width (RBC) [Entitic vol] 13.6 % 11.6 - 14.8 % [facility] Hematocrit (Bld) [Volume fraction] 29 % Low 41.0 - 53.0 % [facility] Hemoglobin (Bld) [Mass/Vol] 9.3 g/dL Low 13.5 - 17.5 g/dL [facility] Immature granulocytes (Bld) [#/Vol] 0.03 10*3/uL [facility] Immature granulocytes/100 WBC (Bld) 0.3 % [facility] Comment on above: The IG parameter is the percentage of metamyelocytes, myelocytes and promyelocytes. An immature granulocyte count (IG) of 1% or more suggests the possibility of infection, an IG count of 3% is very likely related to an infection. Interpretation and review of laboratory results Abnormal [facility] Lymphocytes (Bld) [#/Vol] 2.94 10*3/uL [facility] Lymphocytes/100 WBC (Bld) 28.7 % [facility] MCH (RBC) [Entitic mass] 30.3 pg 26. 0 - 34.0 pg [facility] MCHC (RBC) [Mass/Vol] 32.1 g/dL 31.0 - 37.0 g/dL [facility] MCV (RBC) [Entitic vol] 94.5 fL 80.0 - 100.0 fL [facility] Monocytes (Bld) [#/Vol] 1.02 10*3/uL High [facility] Monocytes/100 WBC (Bld) 10 % [facility] Neutrophils (Bld) [#/Vol] 6.12 10*3/uL [facility] Neutrophils/100 WBC (Bld) 59.6 % [facility] Nucleated RBC (Bld) [#/Vol] 0 10*3/uL [facility] Nucleated RBC/100 WBC (Bld) [Ratio] 0 % [facility] Platelet mean volume (Bld) [Entitic vol] 10.8 fL 9.4 - 12.4 fL [facility] Platelets (Bld) [#/Vol] 188 10*3/uL [facility] RBC (Bld) [#/Vol] 3.07 10*6/uL Low [facility] WBC (Bld) [#/Vol] 10.25 10*3/uL [facility] CBC WITH AUTO DIFFERENTIALon 10-28-2024 AUTO NRBC 0.0 % Normal [facility] Comment on above: Performed By: #### L [id number] #### LAB [address] [place] [address] Moody Martinez M.D. [id number] AUTO NRBC ABS COUNT 0.00 K/mcL Normal 0.00-0.00 [facility] [place] [facility] Comment on above: Performed By: #### L [id number] #### LAB [address] [place] [address] Moody Martinez M.D. [id number] BASOPHILS ABSOLUTE COUNT 0.08 K/mcL Normal 0.00-0.30 [facility] Comment on above: Performed By: #### L [id number] #### LAB [address] [place] [address] Moody Martinez M.D. [id number] Basophils/100 WBC (Bld) 0.8 % Normal [facility] Comment on above: Performed By: #### L [id number] #### LAB [address] [place] [address] Moody Martinez M.D. [id number] Eosinophils (Bld) [#/Vol] 0.06 10*3/uL Normal 0.00-0.5 0 [facility] Comment on above: Performed By: #### L [id number] #### LAB [address] [place] [address] Moody Martinez M.D. [id number] Eosinophils/100 WBC (Bld) 0.6 % [facility] Comment on above: Performed By: #### L [id number] #### LAB [address] [place] [address] Moody Martinez M.D. [id number] Erythrocyte distribution width (RBC) [Ratio] 13.6 % Normal 11.6-14.8 [facility] Comment on above: Performed By: #### L [id number] #### LAB [address] [place] [address] Moody Martinez M.D. [id number] Hematocrit (Bld) [Volume fraction] 29.0 % Low 41.0-53.0 [facility] Comment on above: Performed By: #### L [id number] #### LAB [address] [place] [address] Moody Martinez M.D. [id number] Hemoglobin (Bld) [Mass/Vol] 9.3 g/dL Low 13.5-17.5 [facility] Comment on above: Performed By: #### L [id number] #### LAB [address] [place] [address] Moody Martinez M.D. [id number] IG ABSOLUTE 0.03 K/mcL Normal 0.00-0.30 [facility] Comment on above: Performed By: #### L [id number] #### LAB [address] [place] [address] Moody Martinez M.D. [id number] IG PERCENT 0.30 % [facility] Comment on above: Result Comment: The IG parameter is the percentage of metamyelocytes, myelocytes and promyelocytes. An immature granulocyte count (IG) of 1% or more suggests the possibility of infection, an IG count of 3% is very likely related to an infection. Performed By: #### L [id number] #### LAB [address] [place] [address] Moody Martinez M.D. [id number] Lymphocytes (Bld) [#/Vol] 2.94 10*3/uL Normal 0.90-4.0 0 [facility] Comment on above: Performed By: #### L [id number] #### LAB [address] [place] [address] Moody Martinez M.D. [id number] Lymphocytes/100 WBC (Bld) 28.7 % Normal [facility] Comment on above: Performed By: #### L [id number] #### LAB [address] [place] [address] Moody Martinez M.D. [id number] MCH (RBC) [Entitic mass] 30.3 pg Normal 26.0-34.0 [facility] Comment on above: Performed By: #### L [id number] #### LAB [address] [place] [address] Moody Martinez M.D. [id number] MCV (RBC) [Entitic vol] 94.5 fL Normal 80.0-100.0 [facility] Comment on above: Performed By: #### L [id number] #### LAB [address] [place] [address] Moody Martinez M.D. [id number] MEAN CORPUSCULAR HEMOGLOBIN CONC 32.1 g/dL Normal 31.0-37.0 [facility] Comment on above: Performed By: #### L [id number] #### LAB [address] [place] [address] Moody Martinez M.D. [id number] Monocytes (Bld) [#/Vol] 1.02 10*3/uL High 0.30-0.90 [facility] Comment on above: Performed By: #### L [id number] #### LAB [address] [place] [address] Moody Martinez M.D. [id number] Monocytes/100 WBC (Bld) 10.0 % Normal [facility] Comment on above: Performed By: #### L [id number] #### LAB [address] [place] [address] Moody Martinez M.D. [id number] NEUTROPHILS ABSOLUTE COUNT 6.12 K/mcL Normal 1.70-7.00 [facility] Comment on above: Performed By: #### L [id number] #### LAB [address] [place] [address] Moody Martinez M.D. [id number] Neutrophils/100 WBC (Bld) 59.6 % Normal [facility] Comment on above: Performed By: #### L [id number] #### MH LAB [address] [place] [address] Moody Martinez M.D. [id number] Platelet mean volume (Bld) [Entitic vol] 10.8 fL Normal 9.4-12.4 [facility] Comment on above: Performed By: #### L [id number] #### LAB [address] [place] [address] Moody Martinez M.D. [id number] Platelets (Bld) [#/Vol] 188 10*3/uL Normal 150-400 [facility] Comment on above: Performed By: #### L [id number] #### MH LAB [address] [place] [address] Moody Martinez M.D. [id number] RBC (Bld) [#/Vol] 3.07 10*6/uL Low 4.50-5.90 [facility] [place] [facility] Comment on above: Performed By: #### L [id number] #### MH LAB [address] [place] [address] Moody Martinez M.D. [id number] WBC (Bld) [#/Vol] 10.25 10*3/uL Normal 4.50-11.00 [facility] Comment on above: Performed By: #### L [id number] #### LAB [address] [place] [address] Moody Martinez M.D. [id number] CONSULTon 10-28-2024 CONSULT Attestation signed by Pedro West MD at 10/29/2024 9:27 AM Patient was evaluated by Keeley Patton CNP. Patient ID: Patient Name: Enoc Armando Admit Date: 10/27/2024 MR #: [id number] [facility] #: [id number] : 1945 Current location: [facility] Physicians: Ryley Jeter MD (Family); Dr Benitez [...] with chronic low back pain presented to [facility] on 10/27/2024 for an elective left [...] Diagnosed in 1994. Patient is managed by [facility] endocrinology for his type 1 diabetes. He is currently taking Admelog insulin: 10 units at mealtime Lantus insulin: 12 units at bedtime Current monitoring regimen: home blood tests - 3 times daily Complications of diabetes include: Retinopathy: Negative Nephropathy: Positive Peripheral Neuropathy: Positive Autonomic Neuropathy: Negative Allergies: Allergies Allergen Reactions Ckiieuv-Hao-Xsy Reductase Inhibitors Muscle cramps Home Medications: Outpatient [...] MG table (more content not included)... Normal [facility] Glucose (Bld) [Mass/Vol]on 12-29-2023 Glucose [Mass/Vol] 321 mg/dL High 65 - 99 mg/dL [facility] Interpretation and review of laboratory results Abnormal [facility] Glucose [Mass/Vol] 288 mg/dL High 65 - 99 mg/dL [facility] Interpretation and review of laboratory results Abnormal [facility] Glucose [Mass/Vol] 130 mg/dL High 65 - 99 mg/dL [facility] Interpretation and review of laboratory results Abnormal [facility] Glucose [Mass/Vol] 55 mg/dL Critically low 65 - 99 mg/dL [facility] Interpretation and review of laboratory results Abnormal [facility] Critical result acted upon time of test. Test performed at bedside. [facility] Glucose [Mass/Vol] 85 mg/dL 65 - 99 mg/dL [facility] Interpretation and review of laboratory results Normal [facility] Glucose [Mass/Vol] 111 mg/dL High 65 - 99 mg/dL [facility] Interpretation and review of laboratory results Abnormal [facility] Glucose [Mass/Vol] 69 mg/dL 65 - 99 mg/dL [facility] Interpretation and review of laboratory results Normal [facility] Glucose [Mass/Vol] 76 mg/dL 65 - 99 mg/dL [facility] Interpretation and review of laboratory results Normal [facility] Glucose [Mass/Vol] 94 mg/dL 65 - 99 mg/dL [facility] Interpretation and review of laboratory results Normal [facility] Glucose [Mass/Vol] 115 mg/dL High 65 - 99 mg/dL [facility] Interpretation and review of laboratory results Abnormal [facility] Glucose [Mass/Vol] 168 mg/dL High 65 - 99 mg/dL [facility] Interpretation and review of laboratory results Abnormal [facility] Glucose [Mass/Vol] 215 mg/dL High 65 - 99 mg/dL [facility] Interpretation and review of laboratory results Abnormal [facility] Glucose [Mass/Vol] 336 mg/dL High 65 - 99 mg/dL [facility] Interpretation and review of laboratory results Abnormal [facility] Glucose [Mass/Vol] 443 mg/dL Critically high 65 - 99 mg/d L [facility] Interpretation and review of laboratory results Abnormal [facility] Critical result acted upon time of test. Test performed at bedside. [facility] HbA1c (Bld) [Mass fraction]o n 10-28-2024 Average glucose Estimated from glycated hemoglobin (Bld) [Mass/Vol] 237 mg/dL High 74 - 114 mg/dL [facility] Interpretation and review of laboratory results Abnormal [facility] Hemoglobin A1con 10-28-2024 HbA1c (Bld) [Mass fraction] 9.9 % High 4.2 - 5.6 % [facility] MAGNESIUM LEVELon 10-28-2024 Magnesium [Mass/Vol] 2.6 mg/dL High 1.6-2.4 [facility] Comment on above: Performed By: #### 4 6932 #### MH LAB [address] [place], [place] [address] Moody Martinez M.D. [id number] Magnesium [Mass/Vol] 2.6 mg/dL High 1.6-2.4 [facility] Comment on above: Performed By: #### 4 4014 #### LAB [address] [place], [place] [address] Moody Martinez M.D. [id number] Magnesium Levelon 10-28-2024 Magnesium [Mass/Vol] 2.6 mg/dL High 1.6 - 2 .4 mg/dL [facility] Magnesium [Mass/Vol] 2.6 mg/dL High 1.6 - 2 .4 mg/dL [facility] Magnesium [Mass/Vol] 2.6 mg/dL High 1.6 - 2 .4 mg/dL [facility] No Panel Informationon 10-28 Interpretation and review of laboratory results Abnormal [facility] Interpretation and review of laboratory results Abnormal [facility] Interpretation and review of laboratory results Abnormal [facility] PHOSPHORUSon 10-28-2024 Phosphate [Mass/Vol] 4.7 mg/dL High 2.3-3.7 [facility] Comment on above: Performed By: #### 4 6299 ####MH LAB [address] [place] [address] Moody Martinez M.D. [id number] POC GLUCOSE - [facility] 024 Glucose [Mass/Vol] 321 mg/dL High [address] [place] [address] Comment on above: Performed By: #### L [id number] #### MH LAB [address] [place] [address] Moody Martinez M.D. [id number] Glucose [Mass/Vol] 288 mg/dL High [address] [place] [address] Comment on above: Performed By: #### 4 6932 ####[facility] LAB [address] [place] [address] Moody Martinez M.D. [id number] Glucose [Mass/Vol] 130 mg/dL High [address] [place] [address] Comment on above: Performed By: #### 4 6932 ####[facility] LAB [address] [place] [address] Moody Martinez M.D. [id number] Glucose [Mass/Vol] 55 mg/dL Off scale low [address] [place] [address] Comment on above: Order Comment: Criti christian result acted upon time of test. Test performed at bedside. Performed By: #### 4 6990 ####[facility] LAB [address] [place] [address] Moody Martinez M.D. [id number] Glucose [Mass/Vol] 85 mg/dL Normal [address] [place] [address] Comment on above: Performed By: #### 4 6907 ####[facility] LAB [address] [place] [address] Moody Martinez M.D. [id number] Glucose [Mass/Vol] 111 mg/dL High [address] [place] [address] Comment on above: Performed By: #### L [id number] #### LAB [address] [place] [address] Moody Martinez M.D. [id number] Glucose [Mass/Vol] 69 mg/dL Normal [address] [place] [address] Comment on above: Performed By: #### 4 6932 #### LAB [address] [place] [address] Moody Martinez M.D. [id number] Glucose [Mass/Vol] 76 mg/dL Normal [address] [place] [address] Comment on above: Performed By: #### 4 6932 #### LAB [address] [place] [address] Moody Martinez M.D. [id number] Glucose [Mass/Vol] 94 mg/dL Normal [address] [place] [address] Comment on above: Performed By: #### 4 [id number] #### LAB [address] [address] Moody Martinez M.D. [id number] Glucose [Mass/Vol] 115 mg/dL High [address] [place] [address] Comment on above: Performed By: #### 4 [id number] #### LAB [address] [address] Moody Martinez M.D. [id number] Glucose [Mass/Vol] 168 mg/dL High [address] [place] [address] Comment on above: Performed By: #### L [id number] #### LAB [address] [address] Moody Martinez M.D. [id number] Glucose [Mass/Vol] 215 mg/dL High [address] [place] [address] Comment on above: Performed By: #### 4 6932 #### LAB [address] [address] Moody Martinez M.D. [id number] Glucose [Mass/Vol] 336 mg/dL High 65-99 [facility] Comment on above: Performed By: #### 4 [id number] #### LAB [address] [place], [place] [address] Moody Martinez M.D. [id number] Phosphoruson 10-28-2024 Phosphate [Mass/Vol] 4.7 mg/dL High 2.3 - 3 .7 mg/dL [facility] Phosphate [Mass/Vol] 4.4 mg/dL High 2.3 - 3 .7 mg/dL [facility] ABORH VERIFICATIONon 024 ABO and Rh group Nom (Bld) Blood group A Rh(D) positive Normal [facility] ABO and Rh group Nom (Bld) ABO/Rh Verification [facility] Comment on above: Result Comment: Twila ent's ABO/Rh is verified. ABOR Verificationon 024 ABO and Rh group Nom (Bld) Blood group A Rh(D) positive [facility] ABO and Rh group Nom (Bld) ABO/Rh Verification [facility] Comment on above: Patient's ABO/Rh is verified. [facility] AMYLASEon 10-27-2024 Amylase [Catalytic activity/Vol] 26.8 U/L Normal 13.0-53.0 [facility] Comment on above: Performed By: #### 4 [id number] #### LAB [address] [place], [place] [address] Moody Martinez M.D. [id number] APTTon 10-27-2024 aPTT Coag (Bld) [Time] 74 s High [facility] aPTT Coag (Bld) [Time] 74 s High 23-34 [facility] Comment on above: Order Comment: Thera peutic range for APTT's is 68 - 104 seconds Performed By: #### 4 5113 #### LAB [address] [place], [place] [address] Moody Martinez M.D. [id number] Amylaseon 10-27-2024 Amylase.pancreatic [Catalytic activity/Vol] 26.8 U/L 13.0 - 53.0 U/L [facility] BASIC METABOLIC PANELon 10-02 Anion gap [Moles/Vol] 16 mmol/L Normal 10-20 [facility] Comment on above: Order Comment: [facility] has implemented the eGFR calculation approach that does not have a coefficient for race that conforms to the NKF-ASN Task Force Recommendations. Performed By: #### 4 6932 #### LAB [address] [place], [place] [address] Moody Martinez M.D. [id number] Calcium [Mass/Vol] 8.3 mg/dL Low 8.4-10.2 [facility] Comment on above: Order Comment: [facility] has implemented the eGFR calculation approach that does not have a coefficient for race that conforms to the NKF-ASN Task Force Recommendations. Performed By: #### 4 6932 #### LAB [address] [place], [place] [address] Moody Martinez M.D. [id number] Chloride [Moles/Vol] 103 mmol/L Normal 98-108 [facility] Comment on above: Order Comment: [facility] has implemented the eGFR calculation approach that does not have a coefficient for race that conforms to the NKF-ASN Task Force Recommendations. Performed By: #### 4 6932 #### LAB [address] [place], [place] [address] Moody Martinez M.D. [id number] Creatinine [Mass/Vol] 2.60 mg/dL High 0.80-1.30 [facility] Comment on above: Order Comment: [facility] has implemented the eGFR calculation approach that does not have a coefficient for race that conforms to the NKF-ASN Task Force Recommendations. Performed By: #### 4 6932 #### LAB [address] [place], [place] [address] Moody Martinez M.D. [id number] EGFR 24 mL/min/1.73 m2 Low >=60 [facility] Comment on above: Order Comment: [facility] has implemented the eGFR calculation approach that does not have a coefficient for race that conforms to the NKF-ASN Task Force Recommendations. Result Comment: Albin mated GFR was calculated using the 2020 CKD-EPI creatinine equation. Performed By: #### 4 6932 #### [facility] LAB [address] [address] Moody Martinez M.D. [id number] Glucose [Mass/Vol] 495 mg/dL Off scale high 65-99 [facility] Comment on above: Order Comment: [facility] has implemented the eGFR calculation approach that does not have a coefficient for race that conforms to the NKF-ASN Task Force Recommendations. Performed By: #### 4 6932 #### LAB [address] [address] Moody Martinez M.D. [id number] HCO3 (Bld) [Moles/Vol] 18 mmol/L Low 21-32 [facility] Comment on above: Order Comment: [facility] has implemented the eGFR calculation approach that does not have a coefficient for race that conforms to the NKF-ASN Task Force Recommendations. Performed By: #### 4 6932 #### LAB [address] [address] Moody Martinez M.D. [id number] Potassium [Moles/Vol] 5.0 mmol/L Normal 3.5-5.1 [facility] Comment on above: Order Comment: [facility] has implemented the eGFR calculation approach that does not have a coefficient for race that conforms to the NKF-ASN Task Force Recommendations. Performed By: #### 4 6930 #### MH LAB [address] [address] Moody Martinez M.D. [id number] Sodium [Moles/Vol] 132 mmol/L Low 135-145 [facility] Comment on above: Order Comment: [facility] has implemented the eGFR calculation approach that does not have a coefficient for race that conforms to the NKF-ASN Task Force Recommendations. Performed By: #### 4 6949 #### MH LAB [address] [address] Moody Martinez M.D. [id number] Urea nitrogen [Mass/Vol] 93 mg/dL High 8-25 [facility] Comment on above: Order Comment: [facility] has implemented the eGFR calculation approach that does not have a coefficient for race that conforms to the NKF-ASN Task Force Recommendations. Performed By: #### 4 6932 #### LAB [address] [address] Moody Martinez M.D. [id number] Urea nitrogen/Creatinine [Mass ratio] 35.8 mg/mg High 10.0-20.0 [facility] Comment on above: Order Comment: [facility] has implemented the eGFR calculation approach that does not have a coefficient for race that conforms to the NKF-ASN Task Force Recommendations. Performed By: #### 4 6932 #### LAB [address] [address] Moody Martinez M.D. [id number] BETA-HYDROXYBUTYRATEon 10-27 BETA-HYDROXYBUTYRATE 0.4 mmol/L High 0.0-0.3 [facility] Comment on above: Performed By: #### 4 5139 #### LAB [address] [address] Moody Martinez M.D. [id number] BETA-HYDROXYBUTYRATE 2.3 mmol/L High 0.0-0.3 [facility] Comment on above: Performed By: #### 4 5139 #### LAB [address] [address] Moody Martinez M.D. [id number] BETA-HYDROXYBUTYRATE 0.7 mmol/L High 0.0-0.3 [facility] Comment on above: Performed By: #### 4 6932 #### LAB [address] [address] Moody Martinez M.D. [id number] BILIRUBIN, DIRECTon 10-27-20 24 BILIRUBIN, DIRECT < Normal 0.0-0.4 [facility] Comment on above: Performed By: #### 4 5145 #### LAB [address] [address] Moody Martinez M.D. [id number] Beta hydroxybutyrate [Moles/ Vol]on 10-27-2024 Interpretation and review of laboratory results Abnormal [facility] Interpretation and review of laboratory results Abnormal [facility] Beta-Hydroxybutyrateon 10-27 Beta hydroxybutyrate [Moles/Vol] 2.3 mmol/L High 0.0 - 0.3 mmol/L [facility] Beta hydroxybutyrate [Moles/Vol] 0.7 mmol/L High 0.0 - 0.3 mmol/L [facility] Bilirubin.direct [Mass/Vol]o n 10-27-2024 Bilirubin.conjugated [Mass/Vol] mg/dL 0.0 - 0.4 mg/dL [facility] Interpretation and review of laboratory results Normal [facility] Blood type and Indirect anti body screen panel (Bld)on 10-27-2024 ABO and Rh group Nom (Bld) Blood group A Rh(D) positive [facility] Blood group antibody screen Ql Negative [facility] Specimen Expires 10/30/2024 23:59 EST [facility] CBC Auto Differentialon 10-02 Basophils (Bld) [#/Vol] 0.04 10*3/uL [facility] Basophils/100 WBC (Bld) 0.5 % [facility] Eosinophils (Bld) [#/Vol] 0 10*3/uL [facility] Eosinophils/100 WBC (Bld) 0 % [facility] Erythrocyte distribution width (RBC) [Entitic vol] 13.7 % 11.6 - 14.8 % [facility] Hematocrit (Bld) [Volume fraction] 34.8 % Low 41.0 - 53.0 % [facility] Hemoglobin (Bld) [Mass/Vol] 11.2 g/dL Low 13.5 - 17.5 g/dL [facility] Immature granulocytes (Bld) [#/Vol] 0.04 10*3/uL [facility] Immature granulocytes/100 WBC (Bld) 0.5 % [facility] Comment on above: The IG parameter is the percentage of metamyelocytes, myelocytes and promyelocytes. An immature granulocyte count (IG) of 1% or more suggests the possibility of infection, an IG count of 3% is very likely related to an infection. Interpretation and review of laboratory results Abnormal [facility] Lymphocytes (Bld) [#/Vol] 1.2 10*3/uL [facility] Lymphocytes/100 WBC (Bld) 13.8 % [facility] MCH (RBC) [Entitic mass] 30 pg 26. 0 - 34.0 pg [facility] MCHC (RBC) [Mass/Vol] 32.2 g/dL 31.0 - 37.0 g/dL [facility] MCV (RBC) [Entitic vol] 93.3 fL 80.0 - 100.0 fL [facility] Monocytes (Bld) [#/Vol] 0.11 10*3/uL Low [facility] Monocytes/100 WBC (Bld) 1.3 % [facility] Neutrophils (Bld) [#/Vol] 7.32 10*3/uL High [facility] Neutrophils/100 WBC (Bld) 83.9 % [facility] Nucleated RBC (Bld) [#/Vol] 0 10*3/uL [facility] Nucleated RBC/100 WBC (Bld) [Ratio] 0 % [facility] Platelet mean volume (Bld) [Entitic vol] 11.2 fL 9.4 - 12.4 fL [facility] Platelets (Bld) [#/Vol] 234 10*3/uL [facility] RBC (Bld) [#/Vol] 3.73 10*6/uL Low [facility] WBC (Bld) [#/Vol] 8.71 10*3/uL [facility] CBC WITH AUTO DIFFERENTIALon 10-27-2024 AUTO NRBC 0.0 % Normal [facility] Comment on above: Performed By: #### L [id number] #### LAB [address] [place], [place] [address] Moody Martinez M.D. [id number] AUTO NRBC ABS COUNT 0.00 K/mcL Normal 0.00-0.00 [facility] [place] [facility] Comment on above: Performed By: #### L [id number] ####[facility] LAB [address] [place], [place] [address] Moody Martinez M.D. [id number] BASOPHILS ABSOLUTE COUNT 0.04 K/mcL Normal 0.00-0.30 [facility] Comment on above: Performed By: #### L [id number] #### LAB [address] [place], [place] [address] Moody Martinez M.D. [id number] Basophils/100 WBC (Bld) 0.5 % Normal [facility] Comment on above: Performed By: #### L [id number] #### LAB [address] [address] Moody Martinez M.D. [id number] Eosinophils (Bld) [#/Vol] 0.00 10*3/uL Normal 0.00-0.5 0 [facility] Comment on above: Performed By: #### L [id number] #### LAB [address] [address] Moody Martinez M.D. [id number] Eosinophils/100 WBC (Bld) 0.0 % Normal [facility] Comment on above: Performed By: #### L [id number] #### LAB [address] [address] Moody Martinez M.D. [id number] Erythrocyte distribution width (RBC) [Ratio] 13.7 % Normal 11.6-14.8 [facility] Comment on above: Performed By: #### L [id number] #### LAB [address] [address] Moody Martinez M.D. [id number] Hematocrit (Bld) [Volume fraction] 34.8 % Low 41.0-53.0 [facility] Comment on above: Performed By: #### L [id number] #### LAB [address] [address] Moody Martinez M.D. [id number] Hemoglobin (Bld) [Mass/Vol] 11.2 g/dL Low 13.5-17.5 [facility] Comment on above: Performed By: #### L [id number] #### LAB [address] [address] Moody Martinez M.D. [id number] IG ABSOLUTE 0.04 K/mcL Normal 0.00-0.30 [facility] Comment on above: Performed By: #### L [id number] #### LAB [address] [place] [address] Moody Martinez M.D. [id number] IG PERCENT 0.50 % Normal [facility] Comment on above: Result Comment: The IG parameter is the percentage of metamyelocytes, myelocytes and promyelocytes. An immature granulocyte count (IG) of 1% or more suggests the possibility of infection, an IG count of 3% is very likely related to an infection. Performed By: #### L [id number] #### LAB [address] [place] [address] Moody Martinez M.D. [id number] Lymphocytes (Bld) [#/Vol] 1.20 10*3/uL Normal 0.90-4.0 0 [facility] Comment on above: Performed By: #### L [id number] #### LAB [address] [address] Moody Martinez M.D. [id number] Lymphocytes/100 WBC (Bld) 13.8 % Normal [facility] Comment on above: Performed By: #### L [id number] #### LAB [address] [place] [address] Moody Martinez M.D. [id number] MCH (RBC) [Entitic mass] 30.0 pg Normal 26.0-34.0 [facility] Comment on above: Performed By: #### L [id number] #### LAB [address] [place] [address] Moody Martinez M.D. [id number] MCV (RBC) [Entitic vol] 93.3 fL Normal 80.0-100.0 [facility] Comment on above: Performed By: #### L [id number] #### LAB [address] [place] [address] Moody Martinez M.D. [id number] MEAN CORPUSCULAR HEMOGLOBIN CONC 32.2 g/dL Normal 31.0-37.0 [facility] Comment on above: Performed By: #### L [id number] #### LAB [address] [place] [address] Moody Martinez M.D. [id number] Monocytes (Bld) [#/Vol] 0.11 10*3/uL Low 0.30-0.90 [facility] Comment on above: Performed By: #### L [id number] ####[facility] LAB [address] [address] Moody Martinez M.D. [id number] Monocytes/100 WBC (Bld) 1.3 % Normal [facility] Comment on above: Performed By: #### L [id number] #### LAB [address] [address] Moody Martinez M.D. [id number] NEUTROPHILS ABSOLUTE COUNT 7.32 K/mcL High 1.70-7.00 [facility] Comment on above: Performed By: #### L [id number] #### LAB [address] [address] Moody Martinez M.D. [id number] Neutrophils/100 WBC (Bld) 83.9 % Normal [facility] Comment on above: Performed By: #### L [id number] #### LAB [address] [address] Moody Martinez M.D. [id number] Platelet mean volume (Bld) [Entitic vol] 11.2 fL Normal 9.4-12.4 [facility] Comment on above: Performed By: #### L [id number] #### LAB [address] [place] [address] Moody Martinez M.D. [id number] Platelets (Bld) [#/Vol] 234 10*3/uL Normal 150-400 [facility] Comment on above: Performed By: #### L [id number] ####[facility] LAB [address] [address] Moody Martinez M.D. [id number] RBC (Bld) [#/Vol] 3.73 10*6/uL Low 4.50-5.90 [facility] [place] [facility] Comment on above: Performed By: #### L [id number] #### LAB [address] [place] [address] Moody Martinez M.D. [id number] WBC (Bld) [#/Vol] 8.71 10*3/uL Normal 4.50-11.00 [facility] [place] [facility] Comment on above: Performed By: #### L [id number] #### LAB [address] [address] Moody Martinez M.D. [id number] CITRATED TEG (CARDIAC) WITH HEPARINASE PANEL [facility] 10-27-2024 (CFF-FLEV) CITRATED FUNCTIONAL FIBRINOGEN -EST. FUNCTIONAL FIBRINOGEN LEVEL 381.4 mg/dL Normal 278.0-581.0 [facility] Comment on above: Performed By: #### L [id number] #### LAB [address] [address] Moody Martinez M.D. [id number] (CFF-MA) CITRATED FUNCTIONAL FIBRINOGEN - [place] 20.9 mm Normal 15.0-32.0 [facility] Comment on above: Performed By: #### L [id number] #### LAB [address] [address] Moody Martinez M.D. [id number] (CK-ANGLE) CITRATED KAOLIN-ALPHA ANGLE 73.2 deg Normal 63.0-78.0 [facility] Comment on above: Performed By: #### L [id number] #### LAB [address] [address] Moody Martinez M.D. [id number] (CK-K) CITRATED KAOLIN-SPEED OF CLOT FORMATION 1.3 min Normal 0.8-2.1 [facility] Comment on above: Performed By: #### L [id number] #### LAB [address] [address] Moody Martinez M.D. [id number] (CK-MA) CITRATED KAOLIN-MAXIMUM CLOT STRENGTH 50.9 mm Low 52.0-69.0 [facility] Comment on above: Performed By: #### L [id number] #### LAB [address] [address] Moody Martinez M.D. [id number] (CK-R) CITRATED KAOLIN - REACTION TIME 16.4 min High 4.6-9.1 [facility] Comment on above: Performed By: #### L [id number] ####[facility] LAB [address] [address] Moody Martinez M.D. [id number] (CKH-R) CITRATED KAOLIN WITH HEPARINASE-REACTION TIME 7.6 min Normal 4.3-8.3 [facility] Comment on above: Performed By: #### L [id number] ####[facility] LAB [address] [address] Moody Martinez M.D. [id number] (SINGLE POINTED OPERATOR-MA) CITRATED RAPID TEG - [place] 62.3 mm Normal 52.0-70.0 [facility] Comment on above: Performed By: #### L [id number] #### LAB [address] [address] Moody Martinez M.D. [id number] COMPREHENSIVE METABOLIC PANE [facility] 10-27-2024 Albumin [Mass/Vol] 3.4 g/dL Normal 3.2-5.2 [facility] Comment on above: Order Comment: [facility] has implemented the eGFR calculation approach that does not have a coefficient for race that conforms to the NKF-ASN Task Force Recommendations. Performed By: #### 4 6126 #### LAB [address] [address] Moody Martinez M.D. [id number] ALP [Catalytic activity/Vol] 86 U/L Normal 40-150 [facility] Comment on above: Order Comment: [facility] has implemented the eGFR calculation approach that does not have a coefficient for race that conforms to the NKF-ASN Task Force Recommendations. Performed By: #### 4 6126 ####[facility] LAB [address] [address] Moody Martinez M.D. [id number] ALT [Catalytic activity/Vol] 13 U/L Normal 0-50 U/L [facility] Comment on above: Order Comment: [facility] has implemented the eGFR calculation approach that does not have a coefficient for race that conforms to the NKF-ASN Task Force Recommendations. Performed By: #### 4 6126 #### LAB [address] [address] Moody Martinez M.D. [id number] Anion gap [Moles/Vol] 20 mmol/L Normal 10-20 [facility] Comment on above: Order Comment: [facility] has implemented the eGFR calculation approach that does not have a coefficient for race that conforms to the NKF-ASN Task Force Recommendations. Performed By: #### 4 6126 #### LAB [address] [address] Moody Martinez M.D. [id number] AST [Catalytic activity/Vol] 12 U/L Normal 0-50 U/L [facility] Comment on above: Order Comment: [facility] has implemented the eGFR calculation approach that does not have a coefficient for race that conforms to the NKF-ASN Task Force Recommendations. Performed By: #### 4 6126 #### LAB [address] [address] Moody Martinez M.D. [id number] Bilirubin [Mass/Vol] 0.3 mg/dL Normal 0.0-1.3 [facility] Comment on above: Order Comment: [facility] has implemented the eGFR calculation approach that does not have a coefficient for race that conforms to the NKF-ASN Task Force Recommendations. Performed By: #### 4 6126 #### LAB [address] [address] Moody Martinez M.D. [id number] Calcium [Mass/Vol] 8.4 mg/dL Normal 8.4-10.2 [facility] Comment on above: Order Comment: [facility] has implemented the eGFR calculation approach that does not have a coefficient for race that conforms to the NKF-ASN Task Force Recommendations. Performed By: #### 4 6126 #### LAB [address] [address] Moody Martinez M.D. [id number] Chloride [Moles/Vol] 99 mmol/L Normal 98-108 [facility] Comment on above: Order Comment: [facility] has implemented the eGFR calculation approach that does not have a coefficient for race that conforms to the NKF-ASN Task Force Recommendations. Performed By: #### 4 6126 #### LAB [address] [place], [place] [address] Moody Martinez M.D. [id number] Creatinine [Mass/Vol] 2.55 mg/dL High 0.80-1.30 [facility] Comment on above: Order Comment: [facility] has implemented the eGFR calculation approach that does not have a coefficient for race that conforms to the NKF-ASN Task Force Recommendations. Performed By: #### 4 6126 #### LAB [address] [address] Moody Martinez M.D. [id number] EGFR 25 mL/min/1.73 m2 Low >=60 [facility] Comment on above: Order Comment: [facility] has implemented the eGFR calculation approach that does not have a coefficient for race that conforms to the NKF-ASN Task Force Recommendations. Result Comment: Albin mated GFR was calculated using the 2020 CKD-EPI creatinine equation. Performed By: #### 4 6126 #### LAB [address] [place], [place] [address] Moody Martinez M.D. [id number] Glucose [Mass/Vol] 564 mg/dL Off scale high 65-99 [facility] Comment on above: Order Comment: [facility] has implemented the eGFR calculation approach that does not have a coefficient for race that conforms to the NKF-ASN Task Force Recommendations. Performed By: #### 4 6126 #### LAB [address] [id number] Moody Martinez M.D. [id number] HCO3 (Bld) [Moles/Vol] 15 mmol/L Low 21-32 [facility] Comment on above: Order Comment: [facility] has implemented the eGFR calculation approach that does not have a coefficient for race that conforms to the NKF-ASN Task Force Recommendations. Performed By: #### 4 6126 #### LAB [address] [address] Moody Martinez M.D. [id number] Potassium [Moles/Vol] 5.9 mmol/L High 3.5-5.1 [facility] Comment on above: Order Comment: [facility] has implemented the eGFR calculation approach that does not have a coefficient for race that conforms to the NKF-ASN Task Force Recommendations. Performed By: #### 4 6126 #### LAB [address] [address] Moody Martinez M.D. [id number] Protein [Mass/Vol] 5.8 g/dL Low 6.0-8.0 [facility] Comment on above: Order Comment: [facility] has implemented the eGFR calculation approach that does not have a coefficient for race that conforms to the NKF-ASN Task Force Recommendations. Performed By: #### 4 6126 #### LAB [address] [address] Moody Martinez M.D. [id number] Sodium [Moles/Vol] 128 mmol/L Low 135-145 [facility] Comment on above: Order Comment: [facility] has implemented the eGFR calculation approach that does not have a coefficient for race that conforms to the NKF-ASN Task Force Recommendations. Performed By: #### 4 6126 #### LAB [address] [address] Moody Martinez M.D. [id number] Urea nitrogen [Mass/Vol] 93 mg/dL High 8-25 [facility] Comment on above: Order Comment: [facility] has implemented the eGFR calculation approach that does not have a coefficient for race that conforms to the NKF-ASN Task Force Recommendations. Performed By: #### 4 [id number] #### LAB [address] [address] Moody Martinez M.D. [id number] Urea nitrogen/Creatinine [Mass ratio] 36.5 mg/mg High 10.0-20.0 [facility] Comment on above: Order Comment: [facility] has implemented the eGFR calculation approach that does not have a coefficient for race that conforms to the NKF-ASN Task Force Recommendations. Performed By: #### 4 6126 #### LAB [address] [address] Moody Martinez M.D. [id number] Albumin [Mass/Vol] 3.5 g/dL Normal 3.2-5.2 [facility] Comment on above: Order Comment: [facility] has implemented the eGFR calculation approach that does not have a coefficient for race that conforms to the NKF-ASN Task Force Recommendations. Performed By: #### 4 [id number] #### LAB [address] [address] Moody Martinez M.D. [id number] ALP [Catalytic activity/Vol] 92 U/L Normal 40-150 [facility] Comment on above: Order Comment: [facility] has implemented the eGFR calculation approach that does not have a coefficient for race that conforms to the NKF-ASN Task Force Recommendations. Performed By: #### 4 6126 #### LAB [address] [address] Moody Martinez M.D. [id number] ALT [Catalytic activity/Vol] 21 U/L Normal 0-50 U/L [facility] Comment on above: Order Comment: [facility] has implemented the eGFR calculation approach that does not have a coefficient for race that conforms to the NKF-ASN Task Force Recommendations. Performed By: #### 4 6126 #### LAB [address] [address] Moody Martinez M.D. [id number] Anion gap [Moles/Vol] 20 mmol/L Normal 10-20 [facility] Comment on above: Order Comment: [facility] has implemented the eGFR calculation approach that does not have a coefficient for race that conforms to the NKF-ASN Task Force Recommendations. Performed By: #### 4 6126 #### LAB [address] [id number] Moody Martinez M.D. [id number] AST [Catalytic activity/Vol] 14 U/L Normal 0-50 U/L [facility] Comment on above: Order Comment: [facility] has implemented the eGFR calculation approach that does not have a coefficient for race that conforms to the NKF-ASN Task Force Recommendations. Performed By: #### 4 6126 #### LAB [address] [address] Moody Martinez M.D. [id number] Bilirubin [Mass/Vol] 0.3 mg/dL Normal 0.0-1.3 [facility] Comment on above: Order Comment: [facility] has implemented the eGFR calculation approach that does not have a coefficient for race that conforms to the NKF-ASN Task Force Recommendations. Performed By: #### 4 6126 #### LAB [address] [address] Moody Martinez M.D. [id number] Calcium [Mass/Vol] 8.7 mg/dL Normal 8.4-10.2 [facility] Comment on above: Order Comment: [facility] has implemented the eGFR calculation approach that does not have a coefficient for race that conforms to the NKF-ASN Task Force Recommendations. Performed By: #### 4 6126 #### LAB [address] [address] Moody Martinez M.D. [id number] Chloride [Moles/Vol] 99 mmol/L Normal 98-108 [facility] Comment on above: Order Comment: [facility] has implemented the eGFR calculation approach that does not have a coefficient for race that conforms to the NKF-ASN Task Force Recommendations. Performed By: #### 4 6126 #### LAB [address] [address] Moody Martinez M.D. [id number] Creatinine [Mass/Vol] 2.60 mg/dL High 0.80-1.30 [facility] Comment on above: Order Comment: [facility] has implemented the eGFR calculation approach that does not have a coefficient for race that conforms to the NKF-ASN Task Force Recommendations. Performed By: #### 4 6126 #### LAB [address] [address] Moody Martinez M.D. [id number] EGFR 24 mL/min/1.73 m2 Low >=60 [facility] Comment on above: Order Comment: [facility] has implemented the eGFR calculation approach that does not have a coefficient for race that conforms to the NKF-ASN Task Force Recommendations. Result Comment: Albin mated GFR was calculated using the 2020 CKD-EPI creatinine equation. Performed By: #### 4 6126 #### LAB [address] [address] Moody Martinez M.D. [id number] Glucose [Mass/Vol] 467 mg/dL Off scale high 65-99 [facility] Comment on above: Order Comment: [facility] has implemented the eGFR calculation approach that does not have a coefficient for race that conforms to the NKF-ASN Task Force Recommendations. Performed By: #### 4 6126 #### LAB [address] [address] Moody Martinez M.D. [id number] HCO3 (Bld) [Moles/Vol] 17 mmol/L Low 21-32 [facility] Comment on above: Order Comment: [facility] has implemented the eGFR calculation approach that does not have a coefficient for race that conforms to the NKF-ASN Task Force Recommendations. Performed By: #### 4 6126 #### LAB [address] [address] Moody Martinez M.D. [id number] Potassium [Moles/Vol] 6.3 mmol/L Off scale high 3.5-5.1 [facility] Comment on above: Order Comment: [facility] has implemented the eGFR calculation approach that does not have a coefficient for race that conforms to the NKF-ASN Task Force Recommendations. Performed By: #### 4 6126 #### LAB [address] [address] Moody Martinez M.D. [id number] Protein [Mass/Vol] 5.6 g/dL Low 6.0-8.0 [facility] Comment on above: Order Comment: [facility] has implemented the eGFR calculation approach that does not have a coefficient for race that conforms to the NKF-ASN Task Force Recommendations. Performed By: #### 4 6126 #### LAB [address] [address] Moody Martinez M.D. [id number] Sodium [Moles/Vol] 130 mmol/L Low 135-145 [facility] Comment on above: Order Comment: [facility] has implemented the eGFR calculation approach that does not have a coefficient for race that conforms to the NKF-ASN Task Force Recommendations. Performed By: #### 4 6126 #### LAB [address] [address] Moody Martinez M.D. [id number] Urea nitrogen [Mass/Vol] 92 mg/dL High 8-25 [facility] Comment on above: Order Comment: [facility] has implemented the eGFR calculation approach that does not have a coefficient for race that conforms to the NKF-ASN Task Force Recommendations. Performed By: #### 4 6126 #### LAB [address] [place], [place] [address] Moody Martinez M.D. [id number] Urea nitrogen/Creatinine [Mass ratio] 35.4 mg/mg High 10.0-20.0 [facility] Comment on above: Order Comment: [facility] has implemented the eGFR calculation approach that does not have a coefficient for race that conforms to the NKF-ASN Task Force Recommendations. Performed By: #### 4 6126 #### LAB [address] [id number] Moody Martinez M.D. [id number] CORONARY ANGIOGRAPHYon 10-27 CORONARY ANGIOGRAPHY This is [...] significant gradient across the aortic valve. Normal [facility] CT CHEST WITHOUT CONTRASTon 10-27-2024 CT [...] the subcutaneous tissues of the chest wall. Screen/Visieri Workstation ID: [id number] Dictated by: KAHLIL VARGHESE on WedOct 27, 2024 1:25:27 PM EST Transcribed by: WARREN PRITCHARD on WedOct 27, 2024 1:31:49 PM EST Finalized by: KAHLIL VARGHESE on WedOct 27, 2024 3:01:00 PM EST Normal [facility] Comment on above: Order Comment: [...] the chest wall. JAR/pji Workstation ID: [id number] [facility] EXAMINATION: CT CHEST WITHOUT CONTRAST HISTORY: ORDERING [...] STRUCTURES: No aggressive bone lesions. Intact sternum. [facility] Kahlil Varghese, DO - 10/27/2024 EXAMINATION: [...] the subcutaneous tissues of the chest wall. Screen/Aphios Workstation ID: [id number] [facility] Radiology Study observation (narrative) [facility] Cardiac Catheterizationon Impression: Multivessel complex calcified [...] across the aortic valve. FUJI SYNAPSE CV [facility] Citrated TEG (Cardiac) with HeparinaseOrdered By: Burton Zendejas on 10-27-2024 (CFF-FLEV) Cit. Func.Fib.Estimated Func.Fibrinogen Level 381.4 mg/dL 278.0 - 581.0 mg/dL [facility] Clot angle TEG (Bld) [Angle] 73.2 deg 63.0 - 78.0 deg [facility] Clot formation TEG (Bld) [Time] 1.3 min 0.8 - 2.1 min [facility] Clotting time after addition of heparinase TEG (Bld) 7.6 min 4.3 - 8.3 min [facility] Clotting time.intrinsic coagulation system activated Rotational TEG (Bld) 16.4 min High 4.6 - 9.1 min [facility] Interpretation and review of laboratory results Abnormal [facility] Maximum clot firmness TEG (Bld) [Length] 50.9 mm Low 52.0 - 69.0 mm [facility] Maximum clot firmness TEG (Bld) [Length] 20.9 mm 15.0 - 32.0 mm [facility] Maximum clot firmness.extrinsic coagulation system activated Rotational TEG (Bld) [Length] 62.3 mm 52.0 - 70.0 mm [facility] Comprehensive metabolic 2000 panelOrdered By: Ya Izaguirre on 10-27-2024 Albumin [Mass/Vol] 3.4 g/dL 3.2 - 5.2 g/dL [facility] ALP [Catalytic activity/Vol] 86 U/L 40 - 150 U/L [facility] ALT [Catalytic activity/Vol] 13 U/L 0-50 U/L [facility] Anion gap [Moles/Vol] 20 mmol/L 10 - 2 0 mmol/L [facility] AST [Catalytic activity/Vol] 12 U/L 0-50 U/L [facility] Bilirubin [Mass/Vol] 0.3 mg/dL 0.0 - 1 .3 mg/dL [facility] Calcium [Mass/Vol] 8.4 mg/dL 8.4 - 10. 2 mg/dL [facility] Chloride [Moles/Vol] 99 mmol/L 98 - 10 8 mmol/L [facility] Creatinine [Mass/Vol] 2.55 mg/dL High 0.80 - 1.30 mg/dL [facility] GFR/1.73 sq M.predicted CKD-EPI (S/P/Bld) [Vol rate/Area] 25 Low - PINF [facility] Comment on above: Estimated GFR was ca lculated using the 2020 CKD-EPI creatinine equation. Glucose [Mass/Vol] 564 mg/dL Critically high 65 - 99 mg/d L [facility] HCO3 [Moles/Vol] 15 mmol/L Low 21 - 32 mmol/L [facility] Potassium [Moles/Vol] 5.9 mmol/L High 3.5 - 5.1 mmol/L [facility] Protein [Mass/Vol] 5.8 g/dL Low 6.0 - 8.0 g/dL [facility] Sodium [Moles/Vol] 128 mmol/L Low 135 - 145 mmol/L [facility] Urea nitrogen [Mass/Vol] 93 mg/dL High 8 - 25 mg/d L [facility] Urea nitrogen/Creatinine [Mass ratio] 36.5 mg/mg High 10.0 - 20.0 [facility] has implemented the eGFR calculation approach that does not have a coefficient for race that conforms to the NKF-ASN Task Force Recommendations. [facility] Comprehensive metabolic 2000 panelOrdered By: Rosalia March on 10-27-2024 Albumin [Mass/Vol] 3.5 g/dL 3.2 - 5.2 g/dL [facility] ALP [Catalytic activity/Vol] 92 U/L 40 - 150 U/L [facility] ALT [Catalytic activity/Vol] 21 U/L 0-50 U/L [facility] Anion gap [Moles/Vol] 20 mmol/L 10 - 2 0 mmol/L [facility] AST [Catalytic activity/Vol] 14 U/L 0-50 U/L [facility] Bilirubin [Mass/Vol] 0.3 mg/dL 0.0 - 1 .3 mg/dL [facility] Calcium [Mass/Vol] 8.7 mg/dL 8.4 - 10. 2 mg/dL [facility] Chloride [Moles/Vol] 99 mmol/L 98 - 10 8 mmol/L [facility] Creatinine [Mass/Vol] 2.6 mg/dL High 0.80 - 1.30 mg/dL [facility] GFR/1.73 sq M.predicted CKD-EPI (S/P/Bld) [Vol rate/Area] 24 Low - PINF [facility] Comment on above: Estimated GFR was ca lculated using the 2020 CKD-EPI creatinine equation. Glucose [Mass/Vol] 467 mg/dL Critically high 65 - 99 mg/d L [facility] HCO3 [Moles/Vol] 17 mmol/L Low 21 - 32 mmol/L [facility] Interpretation and review of laboratory results Abnormal [facility] Potassium [Moles/Vol] 6.3 mmol/L Critically high 3.5 - 5.1 mmol/L [facility] Protein [Mass/Vol] 5.6 g/dL Low 6.0 - 8.0 g/dL [facility] Sodium [Moles/Vol] 130 mmol/L Low 135 - 145 mmol/L [facility] Urea nitrogen [Mass/Vol] 92 mg/dL High 8 - 25 mg/d L [facility] Urea nitrogen/Creatinine [Mass ratio] 35.4 mg/mg High 10.0 - 20.0 [facility] has implemented the eGFR calculation approach that does not have a coefficient for race that conforms to the NKF-ASN Task Force Recommendations. 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 Normal LV [...] Factors Hypertension: Yes Dyslipidemia: Yes Myocardial Infarction ([place]): No Congestive Heart Failure (CHF): Hx CHF [...] mmHg MV VTI 56 cm MV Decel Clay 850 cm/s2 MV PHT 90 ms MV [...] Average 7. (more content not included)... Normal [facility] Echo completeOrdered By: Fauzia Garay on 10-27-2024 Aortic valve area 3.74766 cm [facility] Work Phone: [phone] AV mean gradient 4 mmHg [facility] Work Phone: [phone] AV peak gradient 7.1824 mmHg [facility] Work Phone: [phone] EF 70.2889 % [facility] Work Phone: [phone] [facility] Work Phone: [phone] Echo completeon 10-27-2024 Patient Info Name: ENOC ARMANDO Age: 78 years : 1945 Gender: Male Ht: 170 cm Wt: 66 kg BSA: 1.77 m2 HR: 63 bpm BP: 148 / 55 mmHg Heart Rhythm: Sinus Arrhythmia Technical Quality: Fair Exam Date: 10/27/2024 1:22 PM Patient Status: Outpatient 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: Jyoti Perez RDCS Exam Type: ECHOCARDIOGRAM COMPLETE Study Info Indications - Abnormal electrocardiogram [ECG] [EKG] Referring Physician: MARIE Arriaga; [id number] BMI: 22.71 kg/m2 Summary 1. Normal LV [...] Factors Hypertension: Yes Dyslipidemia: Yes Myocardial Infarction ([place]): No Congestive Heart Failure (CHF): Hx CHF [...] Date: 10/27/2024 1:22 PM Patient Status: Outpatient 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: Jyoti Perez RDCS Exam Type: ECHOCARDIOGRAM COMPLETE Study Info Indications - Abnormal electrocardiogram [ECG] [EKG] Referring Physician: MARIE Arriaga; [id number] BMI: 22.71 kg/m2 Summary 1. Normal LV [...] Factors Hypertension: Yes Dyslipidemia: Yes Myocardial Infarction ([place]): No Congestive Heart Failure (CHF): Hx CHF [...] mmHg MV VTI 56 cm MV Decel [place] 850 cm/s2 MV PHT 90 ms MV [...] Velocity 6.3 cm/ (more content not included)... [facility] Glucose (Bld) [Mass/Vol]on 12-28-2023 Glucose [Mass/Vol] mg/dL Critically high 65 - 99 mg/d L [facility] Interpretation and review of laboratory results Abnormal [facility] Critical result acted upon time of test. Test performed at bedside. [facility] Glucose [Mass/Vol] mg/dL Critically high 65 - 99 mg/d L [facility] Interpretation and review of laboratory results Abnormal [facility] Critical result acted upon time of test. Test performed at bedside. [facility] Glucose [Mass/Vol] 369 mg/dL High 65 - 99 mg/dL [facility] Interpretation and review of laboratory results Abnormal [facility] Glucose [Mass/Vol] 381 mg/dL High 65 - 99 mg/dL [facility] Interpretation and review of laboratory results Abnormal [facility] Glucose [Mass/Vol] 385 mg/dL High 65 - 99 mg/dL [facility] Interpretation and review of laboratory results Abnormal [facility] Glucose [Mass/Vol] 498 mg/dL Critically high 65 - 99 mg/d [facility] Interpretation and review of laboratory results Abnormal [facility] Critical result acted upon time of test. Test performed at bedside. [facility] Glucose [Mass/Vol] 279 mg/dL High 65 - 99 mg/dL [facility] Interpretation and review of laboratory results Abnormal [facility] HEMOGLOBIN A1Con 10-27-2024 Glucose [Mass/Vol] 237 mg/dL High [address] [place] [address] Comment on above: Performed By: #### 4 [id number] ####[facility] [address] [address] Moody Martinez M.D. [id number] HbA1c (Bld) [Mass fraction] 9.9 % [facility] [address] Comment on above: Performed By: #### 4 8202 ####[facility] [address] [place], [place] [address] Moody Martinez M.D. [id number] Glucose [Mass/Vol] 232 mg/dL [address] Comment on above: Performed By: #### 4 8202 ####[facility] [address] [place], [place] [address] Moody Martinez M.D. [id number] HbA1c (Bld) [Mass fraction] 9.7 % [facility] Comment on above: Performed By: #### 4 8202 ####[facility] [address] [place], [place] [address] Moody Martinez M.D. [id number] HbA1c (Bld) [Mass fraction]o n 10-27-2024 Average glucose Estimated from glycated hemoglobin (Bld) [Mass/Vol] 232 mg/dL High 74 - 114 mg/dL [facility] Interpretation and review of laboratory results Abnormal [facility] Hemoglobin A1con 10-27-2024 HbA1c (Bld) [Mass fraction] 9.7 % High 4.2 - 5.6 % [facility] INR Coag (PPP) [Relative concha e]on 10-27-2024 Interpretation and review of laboratory results Normal [facility] PT Coag (PPP) [Time] 14.3 s [facility] During the induction phase of oral anticoagulation, the INR may not reflect the anticoagulation status of the patient. Therapeutic ranges for INR's are: Most clinical situations: INR 2.0-3.0 Mechanical Prosthetic Valve: INR 2.5-3.5 Critical: INR >5.0 [facility] LACTIC ACID, PLASMAon 2023 LACTIC ACID, PLASMA 1.6 mmol/L Normal 0.6-2.0 [facility] [place] [facility] Comment on above: Performed By: #### 4 6932 #### LAB [address] [address] Moody Martinez M.D. [id number] LIPASEon 10-27-2024 Lipase [Catalytic activity/Vol] 56 U/L Normal 15-65 [facility] Comment on above: Performed By: #### 4 6086 ####[facility] [address] [address] Moody Martinez M.D. [id number] Lactate [Moles/Vol]on 2023 Interpretation and review of laboratory results Normal [facility] Lactic Acid, Plasmaon 2023 Lactate [Moles/Vol] 1.6 mmol/L 0.6 - 2. 0 mmol/L [facility] Lipaseon 10-27-2024 Lipase [Catalytic activity/Vol] 56 U/L 15 - 65 U/L [facility] MAGNESIUM LEVELon 10-27-2024 Magnesium [Mass/Vol] 2.6 mg/dL High 1.6-2.4 [facility] Comment on above: Performed By: #### 4 6109 #### LAB [address] [address] Moody Martinez M.D. [id number] Magnesium [Mass/Vol] 2.5 mg/dL High 1.6-2.4 [facility] Comment on above: Performed By: #### 4 6109 ####[facility] [address] [address] Moody Martinez M.D. [id number] Magnesium Levelon 10-27-2024 Magnesium [Mass/Vol] 2.5 mg/dL High 1.6 - 2 .4 mg/dL [facility] No Panel InformationOrdered By: Ya Izaguirre on 10-27-2024 Interpretation and review of laboratory results Abnormal [facility] No Panel Informationon 10-27 Interpretation and review of laboratory results Normal [facility] PHOSPHORUSon 10-27-2024 Phosphate [Mass/Vol] 4.4 mg/dL High 2.3-3.7 [facility] Comment on above: Performed By: #### 4 6299 ####[facility] [address] [address] Moody Martinez M.D. [id number] Phosphate [Mass/Vol] 5.2 mg/dL High 2.3-3.7 [facility] Comment on above: Performed By: #### 4 4014 #### [facility] [address] [address] Moody Martinez M.D. [id number] POC ARTERIAL BLOOD GAS PANEL -[facility] 10-27-2024 [id number] 19.6 mm Hg [facility] Comment on above: Performed By: #### 4 8716 ####[facility] [address] [address] Moody Martinez M.D. [id number] BASE EXCESS, ARTERIAL -7.5 Low -2.0-2.0 [facility] Comment on above: Performed By: #### 4 8716 ####[facility] [address] [address] Moody Martinez M.D. [id number] FIO2 21 [facility] Comment on above: Performed By: #### 4 8716 ####[facility] [address] [address] Moody Martinez M.D. [id number] HCO3 (Bld) [Moles/Vol] 17.5 mmol/L Low 22.0-26.0 [facility] Comment on above: Performed By: #### 4 [id number] #### LAB [address] [address] Moody Martinez M.D. [id number] Hematocrit (Bld) [Volume fraction] 30.0 % Low 41.0-53.0 [facility] Comment on above: Performed By: #### 4 [id number] ####[facility] [address] [address] Moody Martinez M.D. [id number] Hemoglobin (Bld) [Mass/Vol] 9.8 g/dL Low 13.5-17.5 [facility] Comment on above: Performed By: #### 4 [id number] ####[facility] [address] [address] Moody Martinez M.D. [id number] Oxygen saturation in Blood 97.3 % Normal 92.0-99.0 [facility] Comment on above: Performed By: #### 4 [id number] ####[facility] [address] [address] Moody Martinez M.D. [id number] PCO2 ARTERIAL 32.9 mm Hg Low 35.0-45.0 [facility] Comment on above: Performed By: #### 4 [id number] #### LAB [address] [address] Moody Martinez M.D. [id number] PH ARTERIAL 7.33 Low 7.35-7.45 [facility] Comment on above: Performed By: #### 4 [id number] ####[facility] [address] [address] Moody Martinez M.D. [id number] PO2 ARTERIAL 85 mm Hg Normal 75-85 [facility] Comment on above: Performed By: #### 4 [id number] ####[facility] [address] [address] Moody Martinez M.D. [id number] SPECIMEN SOURCE RADIANCE Radial, left Normal [facility] Comment on above: Performed By: #### 4 [id number] #### LAB [address] [address] Moody Martinez M.D. [id number] POC Arterial Blood Gas Panel -[facility] 10-27-2024 Alveolar-arterial oxygen Partial pressure difference 19.6 mm Hg [facility] Base excess Calc (Bld) [Moles/Vol] -7.5000 mmol/L Low -2.0 - 2.0 [facility] CO2 (Bld) [Partial pressure] 32.9 mm[Hg] Low [facility] Hematocrit (BldA) [Volume fraction] 30 % Low 41.0 - 53.0 % [facility] Inhaled oxygen concentration 21 % [facility] Interpretation and review of laboratory results Abnormal [facility] Oxygen (Bld) [Partial pressure] 85 mm[Hg] [facility] pH (Bld) 7.33 [pH] Low 7.35 - 7.45 [facility] Specimen source Nom (Unsp spec) Radial, left [facility] POC GLUCOSE - [facility] 024 Glucose [Mass/Vol] 443 mg/dL Off scale high [address] [place] [address] Comment on above: Order Comment: Criti christian result acted upon time of test. Test performed at bedside. Performed By: #### 4 6932 ####[facility] [address] [address] Moody Martinez M.D. [id number] POC GLUCOSE > Off scale [address] Comment on above: Order Comment: Criti christian result acted upon time of test. Test performed at bedside. Performed By: #### 4 6932 ####[facility] [address] [address] Moody Martinez M.D. [id number] POC GLUCOSE > Off scale [address] Comment on above: Order Comment: Criti christian result acted upon time of test. Test performed at bedside. Performed By: #### 4 6932 ####[facility] [address] [address] Moody Martinez M.D. [id number] POC GLUCOSE > Off scale [address] Comment on above: Order Comment: Criti christian result acted upon time of test. Test performed at bedside. Performed By: #### 4 6932 #### LAB [address] [address] Moody Martinez M.D. [id number] Glucose [Mass/Vol] 369 mg/dL [address] Comment on above: Performed By: #### 4 6932 #### LAB [address] [address] Moody Martinez M.D. [id number] Glucose [Mass/Vol] 381 mg/dL [address] Comment on above: Performed By: #### 4 6932 #### LAB [address] [address] Moody Martinez M.D. [id number] Glucose [Mass/Vol] 385 mg/dL [address] Comment on above: Performed By: #### 4 6932 #### LAB [address] [address] Moody Martinez M.D. [id number] Glucose [Mass/Vol] 498 mg/dL Off scale [address] Comment on above: Order Comment: Criti christian result acted upon time of test. Test performed at bedside. Performed By: #### 4 6932 #### LAB [address] [address] Moody Martinez M.D. [id number] Glucose [Mass/Vol] 279 mg/dL [address] Comment on above: Performed By: #### L [id number] #### [facility] [address] [address] Moody Martinez M.D. [id number] POTASSIUM LEVELon 10-27-2024 Potassium [Moles/Vol] 3.4 mmol/L Low 3.5-5.1 [facility] Comment on above: Performed By: #### 4 6351 #### LAB [address] [address] Moody Martinez M.D. [id number] PREALBUMINon 10-27-2024 Prealbumin [Mass/Vol] 15.9 mg/dL Low 20.0-40.0 [facility] Comment on above: Performed By: #### 4 4014 #### LAB [address] [place], [place] [address] Moody Martinez M.D. [id number] PT/INRon 10-27-2024 INR Coag (PPP) [Relative time] 1.1 {INR} 0.8 - 1.1 [facility] INR Coag (PPP) [Relative time] 1.1 {INR} Normal 0.8-1.1 [facility] Comment on above: Order Comment: Janet good the induction phase of oral anticoagulation, the INR may not reflect the anticoagulation status of the patient. Therapeutic ranges for INR's are:Most clinical situations: INR 2.0-3.0Mechanical Prosthetic Valve: INR 2.5-3.5Critical: INR >5.0 Performed By: #### 4 6932 #### LAB [address] [place], [place] [address] Moody Martinez M.D. [id number] PT Coag (PPP) [Time] 14.3 s Normal 11.8-14.3 [facility] Comment on above: Order Comment: Janet good the induction phase of oral anticoagulation, the INR may not reflect the anticoagulation status of the patient. Therapeutic ranges for INR's are:Most clinical situations: INR 2.0-3.0Mechanical Prosthetic Valve: INR 2.5-3.5Critical: INR >5.0 Performed By: #### 4 6932 #### LAB [address] [place], [place] [address] Moody Martinez M.D. [id number] Phosphoruson 10-27-2024 Phosphate [Mass/Vol] 5.2 mg/dL High 2.3 - 3 .7 mg/dL [facility] Potassium Levelon 10-27-2024 Potassium [Moles/Vol] 3.4 mmol/L Low 3.5 - 5.1 mmol/L [facility] Potassium [Moles/Vol]on 10-02 Interpretation and review of laboratory results Abnormal [facility] Prealbuminon 10-27-2024 Prealbumin [Mass/Vol] 15.9 mg/dL Low 20.0 - 40.0 mg/dL [facility] Prealbumin [Mass/Vol]on 10-02 Interpretation and review of laboratory results Abnormal [facility] Segmental Doppler Lower Extr emity Arterialon 10-27-2024 Patient Info Name: ENOC ARMANDO Age: 78 years : 1945 Gender: Male Exam Date: 10/27/2024 9:50 AM Patient Status: Outpatient Sizing Sponger: Ya Jacob Referring Physician: ZOILA POLLARD; Indications I73.9 - Peripheral vascular disease, unspecified Procedure Description 96651 Limited bilateral noninvasive physiologic studies of upper [...] Nguyen DO on 10/27/2024 01:14 PM [facility] Flo Abdi III, DO - 10/27/2024 Patient Info Name: ENOC ARMANDO Age: 78 years : 1945 Gender: Male Exam Date: 10/27/2024 9:50 AM Patient Status: Outpatient Sizing Sponger: Ya Jacob Referring Physician: ZOILA POLLARD; Indications I73.9 - Peripheral vascular disease, unspecified Procedure Description 71871 Limited bilateral noninvasive physiologic studies of upper [...] JO-ANN Nguyen DO on 10/27/2024 01:14 PM [facility] T4, [facility] 10-27-2024 Free T4 [Mass/Vol] 1.3 ng/dL Normal 0.7-1.7 [facility] Comment on above: Performed By: #### 4 6567 ####[facility] [address] [place], [place] [address] Moody Martinez M.D. [id number] [facility] Free T4 [Mass/Vol] 1.3 ng/dL 0.7 - 1.7 ng/dL [facility] TEG PLATELET MAPPING ([facility])on 10-27-2024 (AA-%AGGREGATION) AA PERCENT AGGREGATION 12.1 % Low 89.0-100.0 [facility] Comment on above: Performed By: #### L [id number] ####[facility] [address] [place], [place] [address] Moody Martinez M.D. [id number] (AA-%INHIBITION) AA PERCENT INHIBITION 87.9 % High 0.0-11.0 [facility] Comment on above: Performed By: #### L [id number] #### LAB [address] [address] Moody Martinez M.D. [id number] (AA-MA) AA MAXIMUM AMPLITUDE 14.7 mm Low 51.0-71.0 [facility] Comment on above: Performed By: #### L [id number] #### LAB [address] [address] Moody Martinez M.D. [id number] (ACTF-MA) ACTIVATOR F MAXIMUM AMPLITUDE 7.8 mm Normal 2.0-19.0 [facility] Comment on above: Performed By: #### L [id number] #### LAB [address] [address] Moody Martinez M.D. [id number] (ADP-%AGGREGATION) ADP PERCENT AGGREGATION 61.2 % Low 83.0-100.0 [facility] Comment on above: Performed By: #### L [id number] #### LAB [address] [address] Moody Martinez M.D. [id number] (ADP-%INHIBITION) ADP PERCENT INHIBITION 38.8 % High 0.0-17.0 [facility] Comment on above: Performed By: #### L [id number] #### LAB [address] [address] Moody Martinez M.D. [id number] (ADP-MA) ADP MAXIMUM AMPLITUDE 42.7 mm Low 45.0-69.0 [facility] Comment on above: Performed By: #### L [id number] #### LAB [address] [address] Moody Martinez M.D. [id number] (HKH-MA) KAOLIN WITH HEPARINASE MAXIMUM AMPLITUDE 64.8 mm Normal 53.0-68.0 [facility] Comment on above: Performed By: #### L [id number] #### LAB [address] [place] [address] Moody Martinez M.D. [id number] TEG Platelet Mapping (Cardia c)on 10-27-2024 (AA-%Aggregation) AA Percent Aggregation 12.1 % Low 89.0 - 100.0 % [facility] (AA-%Inhibition) AA Percent Inhibition 87.9 % High 0.0 - 11.0 % [facility] (ADP-% Aggregation) ADP Percent Aggregation 61.2 % Low 83.0 - 100.0 % [facility] (ADP-%Inhibition) ADP PERCENT INHIBITION 38.8 % High 0.0 - 17.0 % [facility] Interpretation and review of laboratory results Abnormal [facility] Maximum amplitude AA induced Resonance TEG (Bld) [Length] 14.7 mm Low 51.0 - 71.0 mm [facility] Maximum amplitude activator F induced Resonance TEG (Bld) [Length] 7.8 mm 2.0 - 19.0 mm [facility] Maximum amplitude ADP induced Resonance TEG (Bld) [Length] 42.7 mm Low 45.0 - 69.0 mm [facility] Maximum amplitude kaolin induced after addition of heparinase Resonance TEG (Bld) [Length] 64.8 mm 53.0 - 68.0 mm [facility] TSHon 10-27-2024 TSH Qn 0.48 m[IU]/L Normal 0.27-4.20 [facility] Comment on above: Performed By: #### 4 6932 #### [facility] [address] [place], [place] [address] Moody Martinez M.D. 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 [id number] URINE AEROBIC CULTUREon 10-02 URINE AEROBIC CULTURE URINE CULTURE No Growth (<1,000 CFU/mL) Normal [facility] Comment on above: Order Comment: If PO SITIVE, send for sensitivities per cardiac surgeon Performed By: #### 4 4053 ####[facility] [address] Jose Cisse M.D. [id number] US DOPPLER CAROTIDon 024 US DOPPLER CAROTID Patient Info Name: ENOC ARMANDO Age: 78 years : 1945 Gender: Male Exam Date: 10/27/2024 10:32 AM Patient Status: Outpatient Sizing Sponger: Lori Fagan RDMS (AB), RVS Referring Physician: MARIE Arriaga; Indications Z01.810 - Encounter for preprocedural cardiovascular examination I65.23 - Occlusion and stenosis of bilateral carotid arteries Procedure Description 53455 Duplex examination using B-mode, color and spectral [...] Results c (more content not included)... Normal [facility] Comment on above: Order Comment: Dr. Sudha Parker to read US DOPPLER SEGMENTAL ARTERIA L LEGS BILATERALon 10-27-2024 US DOPPLER SEGMENTAL ARTERIAL LEGS BILATERAL Patient Info Name: ENOC ARMANDO Age: 78 years : 1945 Gender: Male Exam Date: 10/27/2024 9:50 AM Patient Status: Outpatient Sizing Sponger: Ya Jacob Referring Physician: ZOILA POLLARD; Indications I73.9 - Peripheral vascular disease, unspecified Procedure Description 10823 Limited bilateral noninvasive physiologic studies of upper [...] DO on 10/27/2024 01:14 PM [facility] US RADIAL ARTERY MAPPING KARIN Bone 10-27-2024 US RADIAL ARTERY MAPPING BILATERAL Patient Info Name: ENOC ARMANDO Age: 78 years : 1945 Gender: Male Exam Date: 10/27/2024 11:23 AM Patient Status: Outpatient Sizing Sponger: Lori Fagan RDMS (AB), RVS Referring Physician: MARIE Arriaga; Indications - possible radial artery harvest Z01.810 - Encounter for preprocedural cardiovascular examination Procedure Description 13307 Duplex scan of upper extremity arteries or [...] Kristy Parker MD on 10/27/2024 11:[address] [facility] Radial Artery Mapping Karin bone 10-27-2024 Patient Info Name: ENOC ARMANDO Age: 78 years : 1945 Gender: Male Exam Date: 10/27/2024 11:23 AM Patient Status: Outpatient Sizing Sponger: Lori Fagan RDMS (AB), RVS Referring Physician: MARIE Arriaga; Indications - possible radial artery harvest Z01.810 - Encounter for preprocedural cardiovascular examination Procedure Description 51455 Duplex scan of upper extremity arteries or [...] Date: 10/27/2024 11:23 AM Patient Status: Outpatient Sizing Sponger: Lori Fagan RDMS (AB), RVS Referring Physician: MARIE Arriaga; Indications - possible radial artery harvest Z01.810 - Encounter for preprocedural cardiovascular examination Procedure Description 12273 Duplex scan of upper extremity arteries or [...] Kristy Parker MD on 10/27/2024 11:50 AM [facility] SAPHENOUS VEIN MAPon 12-2 SAPHENOUS VEIN MAP Patient Info Name: ENOC ARMANDO Age: 78 years : 1945 Gender: Male Exam Date: 10/27/2024 11:13 AM Patient Status: Outpatient Sizing Sponger: Lori Fagan RDMS (AB), RVS Referring Physician: MARIE Arriaga; Indications - GSV harvest Z01.810 - Encounter for preprocedural cardiovascular examination Procedure Description 62708 Duplex examination using B-mode, color and spectral [...] MD on 10/27/2024 11:57 AM [facility] Ultrasound Saphenous vein [facility] 10-27-2024 Patient Info Name: ENOC ARMANDO Age: 78 years : 1945 Gender: Male Exam Date: 10/27/2024 11:13 AM Patient Status: Outpatient Sizing Sponger: Lori Fagan RDMS (AB), RVS Referring Physician: MARIE Arriaga; Indications - GSV harvest Z01.810 - Encounter for preprocedural cardiovascular examination Procedure Description 68363 Duplex examination using B-mode, color and spectral [...] Kristy Parker MD on 10/27/2024 11:57 AM [facility] Kristy Parker MD - 10/27/2024 Patient Info Name: ENOC ARMANDO Age: 78 years : 1945 Gender: Male Exam Date: 10/27/2024 11:13 AM Patient Status: Outpatient Sizing Sponger: Lori Fagan RDMS (AB), RVS Referring Physician: MARIE Arriaga; Indications - GSV harvest Z01.810 - Encounter for preprocedural cardiovascular examination Procedure Description 87611 Duplex examination using B-mode, color and spectral [...] Kristy Parker MD on 10/27/2024 11:57 AM [facility] Ultrasound doppler carotidon 10-27-2024 Patient Info Name: ENOC ARMANDO Age: 78 years : 1945 Gender: Male Exam Date: 10/27/2024 10:32 AM Patient Status: Outpatient Sizing Sponger: Lori Fagan RDMS (AB), RVS Referring Physician: MARIE Arriaga; Indications Z01.810 - Encounter for preprocedural cardiovascular examination I65.23 - Occlusion and stenosis of bilateral carotid arteries Procedure Description 46055 Duplex examination using B-mode, color and spectral [...] Date: 10/27/2024 10:32 AM Patient Status: Outpatient Sizing Sponger: Lori Fagan RDMS (AB), RVS Referring Physician: MARIE Arriaga; Indications Z01.810 - Encounter for preprocedural cardiovascular examination I65.23 - Occlusion and stenosis of bilateral carotid arteries Procedure Description 36613 Duplex examination using B-mode, color and spectral [...] Patient has a (more content not included)... [facility] Urinalysison 10-27-2024 Bacteria Auto Ql (U) Rare Abnormal None Se en /hpf [facility] Bilirubin Ql (U) Negative Negative [facility] th Clarity Refractometry automated (U) Clear Clear [facility] Color (U) Colorless Colorless, Yellow [facility] Epithelial cells.squamous Auto (Urine sed) [#/Area] [facility] Glucose Auto test strip (U) [Mass/Vol] 150 mg/dL Abnormal Negative, >=1000 [facility] Hemoglobin Auto test strip Ql (U) Negative Negative [facility] Hyaline casts Auto (Urine sed) [#/Area] 0-2 [facility] Interpretation and review of laboratory results Abnormal [facility] Ketones (U) [Mass/Vol] Negative Negat frank mg/dL [facility] Leukocyte esterase Auto test strip Ql (U) Negative Negative [facility] Mucus Auto (Urine sed) [#/Area] Rare None Seen, Rare /lpf [facility] Nitrite Auto test strip Ql (U) Negative Negative [facility] pH (U) 5 [pH] 5.0 - 7.0 [facility] Protein (U) [Mass/Vol] Negative Negat frank mg/dL [facility] RBC Auto (Urine sed) [#/Area] 1 [facility] Specific gravity (U) [Rel density] 1.017 1.005 - 1.025 [facility] Urobilinogen (U) [Mass/Vol] mg/dL NINF - 2.0 mg/dL [facility] WBC Auto (Urine sed) [#/Area] 1 [facility] Microscopic examination is performed on all urinalysis samples and only positive findings are reported. The test for blood on the chemical analytic portion of urinalysis may also be positive due to hemoglobinuria and myoglobinuria and if red blood cells are present they are quantified by microscopic examination. [facility] XR CHEST AP/PA AND LATon XR CHEST [...] effusion. IMPRESSION: Mild bilateral lower lung atelectasis. Screen/[employer] Workstation ID: [id number] Dictated by: KAHLIL VARGHESE on WedOct 27, 2024 1:12:55 PM EST Transcribed by: DASIA ENGLAND on WedOct 27, 2024 1:21:29 PM EST Finalized by: KAHLIL VARGHESE on WedOct 27, 2024 3:01:09 PM EST Normal [facility] Comment on above: Order Comment: Injur y/Trauma or Illness?:Illness/OtherHow long have you had these symptoms (acute/chronic)?:AcuteReason for exam?:pre opHistory of cancer?:.Surgeries, chemotherapy, or radiation?:cardiac catheterizationType of Exam?:InitialAdditional signs and symptoms?:. XR Chest PA and Lateral and AP lateral-decubituson 10-27-2024 Mild bilateral lower lung atelectasis. Screen/[employer] Workstation ID: [id number] GE RIS EXAMINATION: XR [...] lower lung atelectasis. JAR/trn Workstation ID: [id number] [facility] Radiology Study observation (narrative) [place] XR Chest PA and Lateral and AP lateral-decubitusOrdered By: Kahlil Varghese on 10-27-2024 [facility] Work Phone: aPTT Coag (Bld) [Time]on Interpretation and review of laboratory results Abnormal [facility] Therapeutic range for APTT's is 68 - 104 seconds [facility] BASIC METABOLIC PANELon 10-01 Calcium [Mass/Vol] 8.9 mg/dL Normal 8.6-10.3 [facility] Comment on above: Order Comment: FASTI NG:UNKNOWN FASTING: UNKNOWN Performed By: #### 6 399, [id number] #### [facility] [address], [address] [place] [address] Flumer: Jadon Velez MD Chloride [Moles/Vol] 106 mmol/L Normal 98-110 [facility] Comment on above: Order Comment: FASTI NG:UNKNOWN FASTING: UNKNOWN Performed By: #### 6 399, 39111 #### [facility] [address], [address] [place] [address] Flumer: Jadon Velez MD CO2 [Moles/Vol] 22 mmol/L Normal 20-32 [facility] Comment on above: Order Comment: FASTI NG:UNKNOWN FASTING: UNKNOWN Performed By: #### 6 399, 80667 #### [facility] [address], [address] [place] [address] Flumer: Jadon Velez MD Creatinine [Mass/Vol] 2.36 mg/dL High 0.70-1.[address] [facility] Comment on above: Order Comment: FASTI NG:UNKNOWN FASTING: UNKNOWN Performed By: #### 6 399, 92080 #### [facility] [address], [address] [place] [address] Flumer: Jadon Velez MD GFR/1.73 sq M.predicted among non-blacks MDRD (S/P/Bld) [Vol rate/Area] 27 mL/min/{1.73_m2} Low > OR = 60 [facility] Comment on above: Order Comment: FASTI NG:UNKNOWN FASTING: UNKNOWN Performed By: #### 6 399, 44503 #### [facility] [address], [address] [place] [address] Flumer: Jadon Velez MD Glucose [Mass/Vol] 316 mg/dL High 65-99 [facility] Comment on above: Order Comment: FASTI NG:UNKNOWN FASTING: UNKNOWN Result Comment: Fasting reference interval For someone without known diabetes, a glucose value >125 mg/dL indicates that they may have diabetes and this should be confirmed with a follow-up test. Performed By: #### 6 399, 06173 #### [facility] [place] [address] Flumer: Jadon Velez MD Potassium [Moles/Vol] 5.6 mmol/L High 3.5-5.[address] [facility] Comment on above: Order Comment: FASTI NG:UNKNOWN FASTING: UNKNOWN Performed By: #### 6 399, 13744 #### [facility] [place] [address] Flumer: Jadon Velez MD Sodium [Moles/Vol] 137 mmol/L Normal 135-146 [facility] Comment on above: Order Comment: FASTI NG:UNKNOWN FASTING: UNKNOWN Performed By: #### 6 399, 33949 #### [facility] [address], [address] [place] [address] Flumer: Jadon Velez MD Urea nitrogen [Mass/Vol] 66 mg/dL High 05-25 [facility] Comment on above: Order Comment: FASTI NG:UNKNOWN FASTING: UNKNOWN Performed By: #### 6 399, 51020 #### [facility] [place] [address] Flumer: Jadon Velez MD Urea nitrogen/Creatinine [Mass ratio] 28 mg/mg High 04-22 [facility] Comment on above: Order Comment: FASTI NG:UNKNOWN FASTING: UNKNOWN Performed By: #### 6 399, 54628 #### [facility] [place] [address] Flumer: Jadon Velez MD CBC (INCLUDES DIFF/PLT)on Basophils (Bld) [#/Vol] 0.213 10*3/uL High 0-200 [facility] Comment on above: Performed By: #### 6 399, 53061 #### [facility] [place] [address] Flumer: Jadon Velez MD Basophils/100 WBC (Bld) 2.6 % Normal [facility] Comment on above: Performed By: #### 6 399, 53435 #### [facility] [place] [address] Flumer: Jadon Velez MD Eosinophils (Bld) [#/Vol] 0.5 10*3/uL Normal 15-500 [facility] Comment on above: Performed By: #### 6 399, 57495 #### [facility] of [address], [address] [place] [address] Flumer: Jadon Velez MD Eosinophils/100 WBC (Bld) 6.1 % Normal [facility] Comment on above: Performed By: #### 6 399, 27010 #### [facility] of [address], [address] [place] [address] Flumer: Jadon Velez MD Erythrocyte distribution width (RBC) [Ratio] 12.9 % Normal 11.0-15.0 [facility] Comment on above: Performed By: #### 6 399, 84679 #### [facility] of [place] [address] Flumer: Jadon Velez MD Hematocrit (Bld) [Volume fraction] 33.8 % Low 38.5-50.0 [facility] Comment on above: Performed By: #### 6 399, 87273 #### [facility] of [place] [address] Flumer: Jadon Velez MD Hemoglobin (Bld) [Mass/Vol] 10.9 g/dL Low 13.2-17.1 [facility] Comment on above: Performed By: #### 6 399, 56231 #### [facility] of [place] [address] Flumer: Jadon Velez MD Lymphocytes (Bld) [#/Vol] 2.28 10*3/uL Normal 850-3900 [facility] Comment on above: Performed By: #### 6 399, 61698 #### [facility] of [address], [address] [place] [address] Flumer: Jadon Velez MD Lymphocytes/100 WBC (Bld) 27.8 % Normal [facility] Comment on above: Performed By: #### 6 399, 24235 #### [facility] of [place] [address] Flumer: Jadon Velez MD MCH (RBC) [Entitic mass] 30.9 pg Normal 27.0-33.0 [facility] Comment on above: Performed By: #### 6 399, 93902 #### [facility] [place] [address] Flumer: Jadon Velez MD MCHC (RBC) [Mass/Vol] 32.2 [...] clinical condition. Performed By: #### 6 399, 54427 #### [facility] [place] [address] Flumer: Jadon Velez MD MCV (RBC) [Entitic vol] 95.8 fL Normal 80.0-100.0 [facility] Comment on above: Performed By: #### 6 399, 34171 #### [facility] of [place] [address] Flumer: Jadon Velez MD Monocytes (Bld) [#/Vol] 0.631 10*3/uL Normal 200-950 [facility] Comment on above: Performed By: #### 6 399, 22800 #### [facility] [place] [address] Flumer: Jadon Velez MD Monocytes/100 WBC (Bld) 7.7 % Normal [facility] Comment on above: Performed By: #### 6 399, 84228 #### [facility] [place] [address] Flumer: Jadon Velez MD Neutrophils (Bld) [#/Vol] 4.576 10*3/uL Normal 1500-78 00 [facility] Comment on above: Performed By: #### 6 399, 33098 #### [facility] [place] [id number] Flumer: Jadon Velez MD Neutrophils/100 WBC (Bld) 55.8 % Normal [facility] Comment on above: Performed By: #### 6 399, 15838 #### [facility] of [place] [address] Flumer: Jadon Velez MD Platelet mean volume (Bld) [Entitic vol] 11.5 fL Normal 7.5-12.5 [facility] Comment on above: Performed By: #### 6 399, 29042 #### [facility] of [place] [address] Flumer: Jadon Velez MD Platelets (Bld) [#/Vol] 289 10*3/uL Normal 140-400 [facility] Comment on above: Performed By: #### 6 399, 46507 #### [facility] of [place] [address] Flumer: Jadon Velez MD RBC (Bld) [#/Vol] 3.53 10*6/uL Low 4.20-5.80 [facility] Comment on above: Performed By: #### 6 399, 81533 #### [facility] of [place] [address] Flumer: Jadon Velez MD WBC (Bld) [#/Vol] 8.2 10*3/uL Normal 3.8-10.8 [facility] Comment on above: Performed By: #### 6 399, 11927 #### [facility] of [place] [address] Flumer: Jadon Velez MD Lipid Profileon 09-21-2024 Cholesterol [Mass/Vol] 148 mg/dL Normal 200 [facility] Comment on above: Result Comment: <200 mg/dL Desirable 200-240 mg/dL Borderline >240 mg/dL High Risk Performed By: #### L 500.4100 ####[facility] [address] [place], [address] Cholesterol in HDL [Mass/Vol] 49 mg/dL Normal [facility] Comment on above: Result Comment: The drugs N-Acetylcysteine and Metamizole may falselydepress this assay. Reference Range HDL <40 mg/dL Low HDL Cholesterol HDL >or= 60 mg/dL High HDL Cholesterol Performed By: #### L 500.4100 ####[facility] [address] [place], [address] Cholesterol in LDL [Mass/Vol] 87 mg/dL Normal 0-130 [facility] Comment on above: Performed By: #### L 500.4100 ####[facility] [address] [place], [address] Cholesterol in VLDL [Mass/Vol] 12 mg/dL Normal 5-40 [facility] Comment on above: Performed By: #### L 500.4100 ####[facility] [address] [place], [address] Triglyceride [Mass/Vol] 58 mg/dL Normal [facility] Comment on above: Result Comment: The drugs N-Acetylcysteine and Metamizole may falselydepress this assay.Serum Triglycerides Reference Interval Normal <150 mg/dL Borderline high 150 - 199 mg/dL High 200 - 499 mg/dL Very High > or = 500 mg/dL Performed By: #### L 500.4100 ####[facility] [address] [place], [address] Basic Metabolic Profile (BMP )on 09-15-2024 BUN Normal 7-18 [facility] Comment on above: Result Comment: Canc elled via OM: Order cancelled - Patient discharged Performed By: #### L 500.2500, L100.0100 ####[facility] [address] [place], [address] BUN/CRE Normal 10-20 [facility] Comment on above: Result Comment: Canc elled via OM: Order cancelled - Patient discharged Performed By: #### L 500.2500, L100.0100 ####[facility] [address] [place], [address] CA,Total Normal 8.5-10.1 [facility] Comment on above: Result Comment: Canc elled via OM: Order cancelled - Patient discharged Performed By: #### L 500.2500, L100.0100 ####[facility] [address] [place], [address] CL Normal 98-107 [facility] Comment on above: Result Comment: Canc elled via OM: Order cancelled - Patient discharged Performed By: #### L 500.2500, L100.0100 ####[facility] [address] [place], [address] CO2 Normal 21.0-32.0 [facility] Comment on above: Result Comment: Canc elled via OM: Order cancelled - Patient discharged Performed By: #### L 500.2500, L100.0100 ####[facility] [address] [place], [address] CREAT,SERUM Normal 0.70-1.30 [facility] Comment on above: Result Comment: Canc elled via OM: Order cancelled - Patient discharged Performed By: #### L 500.2500, L100.0100 ####[facility] [address] [place], [address] EST GFR Normal >60 [facility] Comment on above: Result Comment: Canc elled via OM: Order cancelled - Patient discharged Performed By: #### L 500.2500, L100.0100 ####[facility] [address] [place], [address] EST GFR - AA Normal >60 [facility] Comment on above: Result Comment: Canc elled via OM: Order cancelled - Patient discharged Performed By: #### L 500.2500, L100.0100 ####[facility] [address] [place], [address] GAP Normal 5-15 [facility] Comment on above: Result Comment: Canc elled via OM: Order cancelled - Patient discharged Performed By: #### L 500.2500, L100.0100 ####[facility] [address] [place], [address] GLU Normal 74-106 [facility] Comment on above: Result Comment: Canc elled via OM: Order cancelled - Patient discharged Performed By: #### L 500.2500, L100.0100 ####[facility] [address] [place], [address] Potassium Normal 3.5-5.1 [facility] Comment on above: Result Comment: Canc elled via OM: Order cancelled - Patient discharged Performed By: #### L 500.2500, L100.0100 ####[facility] [address] [place], [address] Basic Metabolic Profile (BMP) Normal 136-145 [facility] Comment on above: Result Comment: Canc elled via OM: Order cancelled - Patient discharged Performed By: #### L 500.2500, L100.0100 ####[facility] [address] [place], [address] CBC W/Diff, Automatedon 11-1 Absolute Neut Normal 2.0-7.7 [facility] Comment on above: Result Comment: Canc elled via OM: Order cancelled - Patient discharged Performed By: #### L 500.2500, L100.0100 ####[facility] [address] [place], [address] HCT Normal 40-54 [facility] Comment on above: Result Comment: Canc elled via OM: Order cancelled - Patient discharged Performed By: #### L 500.2500, L100.0100 ####[facility] [address] [place], [address] HGB Normal 13.0-16.5 [facility] Comment on above: Result Comment: Canc elled via OM: Order cancelled - Patient discharged Performed By: #### L 500.2500, L100.0100 ####[facility] [address] [place], [address] MCH Normal 27.0-32.0 [facility] Comment on above: Result Comment: Canc elled via OM: Order cancelled - Patient discharged Performed By: #### L 500.2500, L100.0100 ####[facility] [address] [place], [address] MCHC Normal 32-36 [facility] Comment on above: Result Comment: Canc elled via OM: Order cancelled - Patient discharged Performed By: #### L 500.2500, L100.0100 ####[facility] [address] [place], [address] MCV Normal 80-94 [facility] Comment on above: Result Comment: Canc elled via OM: Order cancelled - Patient discharged Performed By: #### L 500.2500, L100.0100 ####[facility] [address] [place], [address] NEUT% Normal 47-70 [facility] Comment on above: Result Comment: Canc elled via OM: Order cancelled - Patient discharged Performed By: #### L 500.2500, L100.0100 ####[facility] [address] [place], [address] PLT Normal 150-450 [facility] Comment on above: Result Comment: Canc elled via OM: Order cancelled - Patient discharged Performed By: #### L 500.2500, L100.0100 ####[facility] [address] [place], [address] RBC Normal 4.6-6.2 [facility] Comment on above: Result Comment: Canc elled via OM: Order cancelled - Patient discharged Performed By: #### L 500.2500, L100.0100 ####[facility] [address] [place], [address] RDW CV Normal 11.6-14.6 [facility] Comment on above: Result Comment: Canc elled via OM: Order cancelled - Patient discharged Performed By: #### L 500.2500, L100.0100 ####[facility] [address] [place], [address] RDW SD Normal 35.1-43.9 [facility] Comment on above: Result Comment: Canc elled via OM: Order cancelled - Patient discharged Performed By: #### L 500.2500, L100.0100 ####[facility] [address] [place], [address] WBC Normal 4.4-11.0 [facility] Comment on above: Result Comment: Canc elled via OM: Order cancelled - Patient discharged Performed By: #### L 500.2500, L100.0100 ####[facility] [address] [place], [address] Basic Metabolic Profile (BMP )on 09-14-2024 BUN/CRE 21.4 RATIO High 10-20 [facility] Comment on above: Performed By: #### L 100.0100, L500.2500 ####[facility] [address] [place], [address] CA,Total 8.7 mg/dL Normal 8.5-10.1 [facility] Comment on above: Performed By: #### L 100.0100, L500.2500 ####[facility] [address] [place], [address] Chloride [Moles/Vol] 104 mmol/L Normal 98-107 [facility] Comment on above: Performed By: #### L 100.0100, L500.2500 ####[facility] [address] [place], [address] CO2 [Moles/Vol] 24.0 mmol/L Normal 21.0-32.0 [facility] Comment on above: Performed By: #### L 100.0100, L500.2500 ####[facility] [address] [place], [address] Creatinine [Mass/Vol] 1.96 mg/dL High 0.70-1.30 [facility] Comment on above: Result Comment: The validity of the calculated GFR GFRAA in patients over70 years has not been determined. Clinical correlation isessential. Performed By: #### L 100.0100, L500.2500 ####[facility] [address] [place], [address] ECRCL 28.02 ml/min Normal [facility] Comment on above: Performed By: #### L 100.0100, L500.2500 ####[facility] [address] [place], [address] EST GFR - AA 43 mL/min Low >60 [facility] Comment on above: Result Comment: Afri can German GFR Calc Performed By: #### L 100.0100, L500.2500 ####[facility] [address] [place], [address] GAP 7 Normal 5-15 [facility] Comment on above: Performed By: #### L 100.0100, L500.2500 ####[facility] [address] [place], [address] GFR/1.73 sq M.predicted among non-blacks MDRD (S/P/Bld) [Vol rate/Area] 35 mL/min/{1.73_m2} Low >60 [facility] Comment on above: Result Comment: Non- GFR Calc Performed By: #### L 100.0100, L500.2500 ####[facility] [address] [place], [address] Glucose [Mass/Vol] 292 mg/dL High 74-106 [facility] Comment on above: Result Comment: Gluc ose result greater than or equal to 200 mg/dLsuggests DIABETES MELLITUS per A.D.A. criteria. Performed By: #### L 100.0100, L500.2500 ####[facility] [address] [place], [address] Potassium [Moles/Vol] 4.0 mmol/L Normal 3.5-5.1 [facility] Comment on above: Performed By: #### L 100.0100, L500.2500 ####[facility] [address] [place], [address] Sodium [Moles/Vol] 135 mmol/L Low 136-145 [facility] Comment on above: Performed By: #### L 100.0100, L500.2500 ####[facility] [address] [place], [address] Urea nitrogen [Mass/Vol] 42 mg/dL High 7-18 [facility] Comment on above: Performed By: #### L 100.0100, L500.2500 ####[facility] [address] [place], [address] Bedside Glucoseon 09-14-2024 FINGERSTICK GLU 276 mg/dL High 74-106 [facility] Comment on above: Result Comment: Dr James sim FollowedInsulin GivenMANAGEMENT OF PATIENT CARE PER NURSING PROTOCOL Performed By: #### L 501.080 ####[facility] [address] [place], [address] CBC W/Diff, Automatedon 09-01 Absolute Lymph 1.66 X10 3/uL Normal 0.83-4.51 [facility] Comment on above: Performed By: #### L 100.0100, L500.2500 ####[facility] [address] [place], [address] Absolute Neut 7.6 X10 3/uL Normal 2.0-7.7 [facility] Comment on above: Performed By: #### L 100.0100, L500.2500 ####[facility] [address] [place], [address] Basophils/100 WBC (Bld) 0.9 % Normal 0-1 [facility] Comment on above: Performed By: #### L 100.0100, L500.2500 ####[facility] [address] [place], [address] Eosinophils/100 WBC (Bld) 2.2 % Normal 0-5 [facility] Comment on above: Performed By: #### L 100.0100, L500.2500 ####[facility] [address] [place], [address] Erythrocyte distribution width (RBC) [Ratio] 13.4 % Normal 11.6-14.6 [facility] Comment on above: Performed By: #### L 100.0100, L500.2500 ####[facility] [address] [place], [address] Hematocrit (Bld) [Volume fraction] 32.8 % Low 40-54 [facility] Comment on above: Performed By: #### L 100.0100, L500.2500 ####[facility] [address] [place], [address] Hemoglobin (Bld) [Mass/Vol] 11.1 g/dL Low 13.0-16.5 [facility] Comment on above: Performed By: #### L 100.0100, L500.2500 ####[facility] [address] [place], [address] IG% 0.300 Normal 0.0-0.9 [facility] Comment on above: Result Comment: IG% - Immature Granulocytes (promyelocytes, myelocytes andmetamyelocytes) > 1% indicates that a LEFT SHIFT is Present. Performed By: #### L 100.0100, L500.2500 ####[facility] [address] [place], [address] Lymphocytes/100 WBC (Bld) 15.7 % Low 19-41 [facility] Comment on above: Performed By: #### L 100.0100, L500.2500 ####[facility] [address] [place], [address] MCH (RBC) [Entitic mass] 30.7 pg Normal 27.0-32.0 [facility] Comment on above: Performed By: #### L 100.0100, L500.2500 ####[facility] [address] [place], [address] MCHC (RBC) [Mass/Vol] 33.8 g/dL Normal 32-36 [facility] Comment on above: Performed By: #### L 100.0100, L500.2500 ####[facility] [address] [place], [address] MCV (RBC) [Entitic vol] 90.6 fL Normal 80-94 [facility] Comment on above: Performed By: #### L 100.0100, L500.2500 ####[facility] [address] [place], [address] Monocytes/100 WBC (Bld) 9.0 % Normal 0-10 [facility] Comment on above: Performed By: #### L 100.0100, L500.2500 ####[facility] [address] [place], [address] Neutrophils/100 WBC (Bld) 71.9 % High 47-70 [facility] Comment on above: Performed By: #### L 100.0100, L500.2500 ####[facility] [address] [place], [address] Nucleated RBC (Bld) [#/Vol] 0 10*3/uL Normal 0-5 [facility] Comment on above: Performed By: #### L 100.0100, L500.2500 ####[facility] [address] [place], [address] Platelet mean volume (Bld) [Entitic vol] 11.9 fL Normal 6.2-12.0 [facility] Comment on above: Performed By: #### L 100.0100, L500.2500 ####[facility] [address] [place], [address] Platelets (Bld) [#/Vol] 186 10*3/uL Normal 150-450 [facility] Comment on above: Performed By: #### L 100.0100, L500.2500 ####[facility] [address] [place], [address] RBC (Bld) [#/Vol] 3.62 10*6/uL Low 4.6-6.2 [facility] Comment on above: Performed By: #### L 100.0100, L500.2500 ####[facility] [address] [place], [address] RDW SD 44.5 fl High 35.1-43.9 [facility] Comment on above: Performed By: #### L 100.0100, L500.2500 ####[facility] [address] [place], [address] WBC (Bld) [#/Vol] 10.5 10*3/uL Normal 4.4-11.0 [facility] Comment on above: Performed By: #### L 100.0100, L500.2500 ####[facility] [address] [place], [address] Basic Metabolic Profile (BMP )on 09-13-2024 BUN Normal 7-18 [facility] Comment on above: Result Comment: Canc elled via OM: MD Ordered Performed By: #### L 500.2500, L100.0100 ####[facility] [address] [place], [address] BUN/CRE Normal 10-20 [facility] Comment on above: Result Comment: Canc elled via OM: MD Ordered Performed By: #### L 500.2500, L100.0100 ####[facility] [address] [place], [address] CA,Total Normal 8.5-10.1 [facility] Comment on above: Result Comment: Canc elled via OM: MD Ordered Performed By: #### L 500.2500, L100.0100 ####[facility] [address] [place], [address] CL Normal 98-107 [facility] Comment on above: Result Comment: Canc elled via OM: MD Ordered Performed By: #### L 500.2500, L100.0100 ####[facility] [address] [place], [address] CO2 Normal 21.0-32.0 [facility] Comment on above: Result Comment: Canc elled via OM: MD Ordered Performed By: #### L 500.2500, L100.0100 ####[facility] [address] [place], [address] CREAT,SERUM Normal 0.70-1.30 [facility] Comment on above: Result Comment: Canc elled via OM: MD Ordered Performed By: #### L 500.2500, L100.0100 ####[facility] [address] [place], [address] EST GFR Normal >60 [facility] Comment on above: Result Comment: Canc elled via OM: MD Ordered Performed By: #### L 500.2500, L100.0100 ####[facility] [address] [place], [address] EST GFR - AA Normal >60 [facility] Comment on above: Result Comment: Canc elled via OM: MD Ordered Performed By: #### L 500.2500, L100.0100 ####[facility] [address] [place], [address] GAP Normal 5-15 [facility] Comment on above: Result Comment: Canc elled via OM: MD Ordered Performed By: #### L 500.2500, L100.0100 ####[facility] [address] [place], [address] GLU Normal 74-106 [facility] Comment on above: Result Comment: Canc elled via OM: MD Ordered Performed By: #### L 500.2500, L100.0100 ####[facility] [address] [place], [address] Potassium Normal 3.5-5.1 [facility] Comment on above: Result Comment: Canc elled via OM: MD Ordered Performed By: #### L 500.2500, L100.0100 ####[facility] [address] [place], [address] Basic Metabolic Profile (BMP) Normal 136-145 [facility] Comment on above: Result Comment: Canc elled via OM: MD Ordered Performed By: #### L 500.2500, L100.0100 ####[facility] [facility] [address] [place], [address] BUN/CRE 17.4 RATIO Normal 10-20 [facility] Comment on above: Performed By: #### L 501.5200, L500.2500, L501.2300, L100.0100 ####[facility] [address] [place], [address] CA,Total 8.7 mg/dL Normal 8.5-10.1 [facility] Comment on above: Performed By: #### L 501.5200, L500.2500, L501.2300, L100.0100 ####[facility] [address] [place], [address] Chloride [Moles/Vol] 105 mmol/L Normal 98-107 [facility] Comment on above: Performed By: #### L 501.5200, L500.2500, L501.2300, L100.0100 ####[facility] [address] [place], [address] CO2 [Moles/Vol] 28.0 mmol/L Normal 21.0-32.0 [facility] Comment on above: Performed By: #### L 501.5200, L500.2500, L501.2300, L100.0100 ####[facility] [address] [place], [address] Creatinine [Mass/Vol] 1.78 mg/dL High 0.70-1.30 [facility] Comment on above: Result Comment: The validity of the calculated GFR GFRAA in patients over70 years has not been determined. Clinical correlation isessential. Performed By: #### L 501.5200, L500.2500, L501.2300, L100.0100 ####[facility] [address] [place], [address] ECRCL 30.95 ml/min Normal [facility] Comment on above: Performed By: #### L 501.5200, L500.2500, L501.2300, L100.0100 ####[facility] [address] [place], [address] EST GFR - AA 47 mL/min Low >60 [facility] Comment on above: Result Comment: Afri can German GFR Calc Performed By: #### L 501.5200, L500.2500, L501.2300, L100.0100 ####[facility] [address] [place], [address] GAP 7 Normal 5-15 [facility] Comment on above: Performed By: #### L 501.5200, L500.2500, L501.2300, L100.0100 ####[facility] [address] [place], [address] GFR/1.73 sq M.predicted among non-blacks MDRD (S/P/Bld) [Vol rate/Area] 39 mL/min/{1.73_m2} Low >60 [facility] Comment on above: Result Comment: Non- GFR Calc Performed By: #### L 501.5200, L500.2500, L501.2300, L100.0100 ####[facility] [address] [place], [address] Glucose [Mass/Vol] 138 mg/dL High 74-106 [facility] Comment on above: Result Comment: Fast ing Glucose result greater than or equal to 126 mg/dLsuggests DIABETES MELLITUS per A.D.A. criteria. Performed By: #### L 501.5200, L500.2500, L501.2300, L100.0100 ####[facility] [address] [place], [address] Potassium [Moles/Vol] 3.4 mmol/L Low 3.5-5.1 [facility] Comment on above: Performed By: #### L 501.5200, L500.2500, L501.2300, L100.0100 ####[facility] [address] [place], [address] Sodium [Moles/Vol] 140 mmol/L Normal 136-145 [facility] Comment on above: Performed By: #### L 501.5200, L500.2500, L501.2300, L100.0100 ####[facility] [address] [place], [address] Urea nitrogen [Mass/Vol] 31 mg/dL High 7-18 [facility] Comment on above: Performed By: #### L 501.5200, L500.2500, L501.2300, L100.0100 ####[facility] [address] [place], [address] Bedside Glucoseon 09-13-2024 FINGERSTICK GLU 281 mg/dL High 74-106 [facility] Comment on above: Result Comment: ADITI GEMENT OF PATIENT CARE PER NURSING PROTOCOL Performed By: #### L 501.080 ####[facility] [address] [place], [address] FINGERSTICK GLU 179 mg/dL High 74-106 [facility] Comment on above: Result Comment: ADITI GEMENT OF PATIENT CARE PER NURSING PROTOCOL Performed By: #### L 501.080 ####[facility] [address] [place], [address] FINGERSTICK GLU 234 mg/dL High 74-106 [facility] Comment on above: Result Comment: ADITI GEMENT OF PATIENT CARE PER NURSING PROTOCOL Performed By: #### L 501.080 ####[facility] [address] [place], [address] FINGERSTICK GLU 238 mg/dL High 74-106 [facility] Comment on above: Result Comment: ADITI GEMENT OF PATIENT CARE PER NURSING PROTOCOL Performed By: #### L 501.080 ####[facility] [address] [place], [address] FINGERSTICK GLU 126 mg/dL High 74-106 [facility] Comment on above: Result Comment: ADITI GEMENT OF PATIENT CARE PER NURSING PROTOCOL Performed By: #### L 501.080 ####[facility] [address] [place], [address] CBC W/Diff, Automatedon - Absolute Neut Normal 2.0-7.7 [facility] Comment on above: Result Comment: Canc elled via OM: MD Ordered Performed By: #### L 500.2500, L100.0100 ####[facility] [address] [place], [address] HCT Normal 40-54 [facility] Comment on above: Result Comment: Canc elled via OM: MD Ordered Performed By: #### L 500.2500, L100.0100 ####[facility] [address] [place], [address] HGB Normal 13.0-16.5 [facility] Comment on above: Result Comment: Canc elled via OM: MD Ordered Performed By: #### L 500.2500, L100.0100 ####[facility] [address] [place], [address] MCH Normal 27.0-32.0 [facility] Comment on above: Result Comment: Canc elled via OM: MD Ordered Performed By: #### L 500.2500, L100.0100 ####[facility] [address] [place], [address] MCHC Normal 32-36 [facility] Comment on above: Result Comment: Canc elled via OM: MD Ordered Performed By: #### L 500.2500, L100.0100 ####[facility] [address] [place], [address] MCV Normal 80-94 [facility] Comment on above: Result Comment: Canc elled via OM: MD Ordered Performed By: #### L 500.2500, L100.0100 ####[facility] [address] [place], [address] NEUT% Normal 47-70 [facility] Comment on above: Result Comment: Canc elled via OM: MD Ordered Performed By: #### L 500.2500, L100.0100 ####[facility] [address] [place], [address] PLT Normal 150-450 [facility] Comment on above: Result Comment: Canc elled via OM: MD Ordered Performed By: #### L 500.2500, L100.0100 ####[facility] [address] [place], [address] RBC Normal 4.6-6.2 [facility] Comment on above: Result Comment: Canc elled via OM: MD Ordered Performed By: #### L 500.2500, L100.0100 ####[facility] [address] [place], [address] RDW CV Normal 11.6-14.6 [facility] Comment on above: Result Comment: Canc elled via OM: MD Ordered Performed By: #### L 500.2500, L100.0100 ####[facility] [address] [place], [address] RDW SD Normal 35.1-43.9 [facility] Comment on above: Result Comment: Canc elled via OM: MD Ordered Performed By: #### L 500.2500, L100.0100 ####[facility] [address] [place], [address] WBC Normal 4.4-11.0 [facility] Comment on above: Result Comment: Canc elled via OM: MD Ordered Performed By: #### L 500.2500, L100.0100 ####[facility] [address] [place], [address] Absolute Lymph 2.32 X10 3/uL Normal 0.83-4.51 [facility] Comment on above: Performed By: #### L 501.5200, L500.2500, L501.2300, L100.0100 ####[facility] [address] [place], [address] Absolute Neut 7.4 X10 3/uL Normal 2.0-7.7 [facility] Comment on above: Performed By: #### L 501.5200, L500.2500, L501.2300, L100.0100 ####[facility] [address] [place], [address] Basophils/100 WBC (Bld) 0.8 % Normal 0-1 [facility] Comment on above: Performed By: #### L 501.5200, L500.2500, L501.2300, L100.0100 ####[facility] [address] [place], [address] Eosinophils/100 WBC (Bld) 1.3 % Normal 0-5 [facility] Comment on above: Performed By: #### L 501.5200, L500.2500, L501.2300, L100.0100 ####[facility] [address] [place], [address] Erythrocyte distribution width (RBC) [Ratio] 13.8 % Normal 11.6-14.6 [facility] Comment on above: Performed By: #### L 501.5200, L500.2500, L501.2300, L100.0100 ####[facility] [address] [place], [address] Hematocrit (Bld) [Volume fraction] 30.7 % Low 40-54 [facility] Comment on above: Performed By: #### L 501.5200, L500.2500, L501.2300, L100.0100 ####[facility] [address] [place], [address] Hemoglobin (Bld) [Mass/Vol] 10.4 g/dL Low 13.0-16.5 [facility] Comment on above: Performed By: #### L 501.5200, L500.2500, L501.2300, L100.0100 ####[facility] [address] [place], [address] IG% 0.400 Normal 0.0-0.9 [facility] Comment on above: Result Comment: IG% - Immature Granulocytes (promyelocytes, myelocytes andmetamyelocytes) > 1% indicates that a LEFT SHIFT is Present. Performed By: #### L 501.5200, L500.2500, L501.2300, L100.0100 ####[facility] [address] [place], [address] Lymphocytes/100 WBC (Bld) 21.2 % Normal 19-41 [facility] Comment on above: Performed By: #### L 501.5200, L500.2500, L501.2300, L100.0100 ####[facility] [address] [place], [address] MCH (RBC) [Entitic mass] 30.6 pg Normal 27.0-32.0 [facility] Comment on above: Performed By: #### L 501.5200, L500.2500, L501.2300, L100.0100 ####[facility] [address] [place], [address] MCHC (RBC) [Mass/Vol] 33.9 g/dL Normal 32-36 [facility] Comment on above: Performed By: #### L 501.5200, L500.2500, L501.2300, L100.0100 ####[facility] [address] [place], [address] MCV (RBC) [Entitic vol] 90.3 fL Normal 80-94 [facility] Comment on above: Performed By: #### L 501.5200, L500.2500, L501.2300, L100.0100 ####[facility] [address] [place], [address] Monocytes/100 WBC (Bld) 9.3 % Normal 0-10 [facility] Comment on above: Performed By: #### L 501.5200, L500.2500, L501.2300, L100.0100 ####[facility] [address] [place], [address] Neutrophils/100 WBC (Bld) 67.0 % Normal 47-70 [facility] Comment on above: Performed By: #### L 501.5200, L500.2500, L501.2300, L100.0100 ####[facility] [address] [place], [address] Nucleated RBC (Bld) [#/Vol] 0 10*3/uL Normal 0-5 [facility] Comment on above: Performed By: #### L 501.5200, L500.2500, L501.2300, L100.0100 ####[facility] [address] [place], [address] Platelet mean volume (Bld) [Entitic vol] 11.4 fL Normal 6.2-12.0 [facility] Comment on above: Performed By: #### L 501.5200, L500.2500, L501.2300, L100.0100 ####[facility] [address] [place], [address] Platelets (Bld) [#/Vol] 168 10*3/uL Normal 150-450 [facility] Comment on above: Performed By: #### L 501.5200, L500.2500, L501.2300, L100.0100 ####[facility] [address] [place], [address] RBC (Bld) [#/Vol] 3.40 10*6/uL Low 4.6-6.2 [facility] Comment on above: Performed By: #### L 501.5200, L500.2500, L501.2300, L100.0100 ####[facility] [address] [place], [address] RDW SD 45.1 fl High 35.1-43.9 [facility] Comment on above: Performed By: #### L 501.5200, L500.2500, L501.2300, L100.0100 ####[facility] [address] [place], [address] WBC (Bld) [#/Vol] 11.0 10*3/uL Normal 4.4-11.0 [facility] Comment on above: Performed By: #### L 501.5200, L500.2500, L501.2300, L100.0100 ####[facility] [address] [place], [address] Magnesiumon 09-13-2024 Magnesium [Mass/Vol] 2.0 mg/dL Normal 1.6-2.6 [facility] Comment on above: Performed By: #### L 501.5200, L500.2500, L501.2300, L100.0100 ####[facility] [address] [place], [address] Phosphoruson 09-13-2024 Phosphate [Mass/Vol] 3.2 mg/dL Normal 2.5-4.9 [facility] Comment on above: Performed By: #### L 501.5200, L500.2500, L501.2300, L100.0100 ####[facility] [address] [place], [address] 12 Lead EKGon 09-12-2024 12 Lead EKG Normal [facility] BNP,B-Type NATRIURETIC PEPTI Silviano 09-12-2024 Natriuretic peptide B (Bld) [Mass/Vol] 903.4 pg/mL High 0-100 [facility] Comment on above: Performed By: #### L 300.3900, L100.0100, L300.4310, L500.2500, L503.6620, L501.5425, L501.5200 ####[facility] [address] [place], [address] Basic Metabolic Profile (BMP )on 09-12-2024 BUN/CRE 14.5 RATIO Normal 10-20 [facility] Comment on above: Order Comment: 1Y Performed By: #### L 300.3900, L100.0100, L300.4310, L500.2500, L503.6620, L501.5425, L501.5200 ####[facility] [address] [place], [address] CA,Total 9.1 mg/dL Normal 8.5-10.1 [facility] Comment on above: Order Comment: 1Y Performed By: #### L 300.3900, L100.0100, L300.4310, L500.2500, L503.6620, L501.5425, L501.5200 ####[facility] [address] [place], [address] Chloride [Moles/Vol] 105 mmol/L Normal 98-107 [facility] Comment on above: Order Comment: 1Y Performed By: #### L 300.3900, L100.0100, L300.4310, L500.2500, L503.6620, L501.5425, L501.5200 ####[facility] [address] [place], [address] CO2 [Moles/Vol] 22.0 mmol/L Normal 21.0-32.0 [facility] Comment on above: Order Comment: 1Y Performed By: #### L 300.3900, L100.0100, L300.4310, L500.2500, L503.6620, L501.5425, L501.5200 ####[facility] [address] [place], [address] Creatinine [Mass/Vol] 1.86 mg/dL High 0.70-1.30 [facility] Comment on above: Order Comment: 1Y Result Comment: The validity of the calculated GFR GFRAA in patients over70 years has not been determined. Clinical correlation isessential. Performed By: #### L 300.3900, L100.0100, L300.4310, L500.2500, L503.6620, L501.5425, L501.5200 ####[facility] [address] [place], [address] ECRCL 29.61 ml/min Normal [facility] Comment on above: Order Comment: 1Y Performed By: #### L 300.3900, L100.0100, L300.4310, L500.2500, L503.6620, L501.5425, L501.5200 ####[facility] [address] [place], [address] EST GFR - AA 45 mL/min Low >60 [facility] Comment on above: Order Comment: 1Y Result Comment: Afri can German GFR Calc Performed By: #### L 300.3900, L100.0100, L300.4310, L500.2500, L503.6620, L501.5425, L501.5200 ####[facility] [address] [place], [address] GAP 11 Normal 5-15 [facility] Comment on above: Order Comment: 1Y Performed By: #### L 300.3900, L100.0100, L300.4310, L500.2500, L503.6620, L501.5425, L501.5200 ####[facility] [address] [place], [address] GFR/1.73 sq M.predicted among non-blacks MDRD (S/P/Bld) [Vol rate/Area] 37 mL/min/{1.73_m2} Low >60 [facility] Comment on above: Order Comment: 1Y Result Comment: Non- GFR Calc Performed By: #### L 300.3900, L100.0100, L300.4310, L500.2500, L503.6620, L501.5425, L501.5200 ####[facility] [address] [place], [address] Glucose [Mass/Vol] 369 mg/dL High 74-106 [facility] Comment on above: Order Comment: 1Y Result Comment: Gluc ose result greater than or equal to 200 mg/dLsuggests DIABETES MELLITUS per A.D.A. criteria. Performed By: #### L 300.3900, L100.0100, L300.4310, L500.2500, L503.6620, L501.5425, L501.5200 ####[facility] [address] [place], [address] Potassium [Moles/Vol] 4.1 mmol/L Normal 3.5-5.1 [facility] Comment on above: Order Comment: 1Y Performed By: #### L 300.3900, L100.0100, L300.4310, L500.2500, L503.6620, L501.5425, L501.5200 ####[facility] [address] [place], [address] Sodium [Moles/Vol] 138 mmol/L Normal 136-145 [facility] Comment on above: Order Comment: 1Y Performed By: #### L 300.3900, L100.0100, L300.4310, L500.2500, L503.6620, L501.5425, L501.5200 ####[facility] [address] [place], [address] Urea nitrogen [Mass/Vol] 27 mg/dL High 7-18 [facility] Comment on above: Order Comment: 1Y Performed By: #### L 300.3900, L100.0100, L300.4310, L500.2500, L503.6620, L501.5425, L501.5200 ####[facility] [address] [place], [address] Bedside Glucoseon 09-12-2024 FINGERSTICK GLU 202 mg/dL High [facility]106 [facility] Comment on above: Result Comment: ADITI GEMENT OF PATIENT CARE PER NURSING PROTOCOL Performed By: #### L 501.080 ####[facility] [address] [place], [address] FINGERSTICK GLU 122 mg/dL High [address] [place] [address] Comment on above: Result Comment: ADITI GEMENT OF PATIENT CARE PER NURSING PROTOCOL Performed By: #### L 501.080 ####[facility] [address] [place], [address] FINGERSTICK GLU 398 mg/dL High [facility]106 [facility] Comment on above: Result Comment: ADITI GEMENT OF PATIENT CARE PER NURSING PROTOCOL Performed By: #### L 501.080 ####[facility] [address] [place], [address] FINGERSTICK GLU 377 mg/dL High [address] [place] [address] Comment on above: Result Comment: ADITI GEMENT OF PATIENT CARE PER NURSING PROTOCOL Performed By: #### L 501.080 ####[facility] [address] [place], [address] CBC W/Diff, Automatedon 09-01 Absolute Lymph 2.62 X10 3/uL Normal 0.83-4.51 [facility] Comment on above: Performed By: #### L 300.3900, L100.0100, L300.4310, L500.2500, L503.6620, L501.5425, L501.5200 ####[facility] [address] [place], [address] Absolute Neut 19.7 X10 3/uL High 2.0-7.7 [facility] Comment on above: Performed By: #### L 300.3900, L100.0100, L300.4310, L500.2500, L503.6620, L501.5425, L501.5200 ####[facility] [address] [place], [address] Basophils/100 WBC (Bld) 0.7 % Normal 0-1 [facility] Comment on above: Performed By: #### L 300.3900, L100.0100, L300.4310, L500.2500, L503.6620, L501.5425, L501.5200 ####[facility] [address] [place], [address] Eosinophils/100 WBC (Bld) 0.8 % Normal 0-5 [facility] Comment on above: Performed By: #### L 300.3900, L100.0100, L300.4310, L500.2500, L503.6620, L501.5425, L501.5200 ####[facility] [address] [place], [address] Erythrocyte distribution width (RBC) [Ratio] 13.8 % Normal 11.6-14.6 [facility] Comment on above: Performed By: #### L 300.3900, L100.0100, L300.4310, L500.2500, L503.6620, L501.5425, L501.5200 ####[facility] [address] [place], [address] Hematocrit (Bld) [Volume fraction] 38.9 % Low 40-54 [facility] Comment on above: Performed By: #### L 300.3900, L100.0100, L300.4310, L500.2500, L503.6620, L501.5425, L501.5200 ####[facility] [address] [place], [address] Hemoglobin (Bld) [Mass/Vol] 13.1 g/dL Normal 13.0-16.5 [facility] Comment on above: Performed By: #### L 300.3900, L100.0100, L300.4310, L500.2500, L503.6620, L501.5425, L501.5200 ####[facility] [address] [place], [address] IG% 0.800 Normal 0.0-0.9 [facility] Comment on above: Result Comment: IG% - Immature Granulocytes (promyelocytes, myelocytes andmetamyelocytes) > 1% indicates that a LEFT SHIFT is Present. Performed By: #### L 300.3900, L100.0100, L300.4310, L500.2500, L503.6620, L501.5425, L501.5200 ####[facility] [address] [place], [address] Lymphocytes/100 WBC (Bld) 10.7 % Low 19-41 [facility] Comment on above: Performed By: #### L 300.3900, L100.0100, L300.4310, L500.2500, L503.6620, L501.5425, L501.5200 ####[facility] [address] [place], [address] MCH (RBC) [Entitic mass] 30.6 pg Normal 27.0-32.0 [facility] Comment on above: Performed By: #### L 300.3900, L100.0100, L300.4310, L500.2500, L503.6620, L501.5425, L501.5200 ####[facility] [address] [place], [address] MCHC (RBC) [Mass/Vol] 33.7 g/dL Normal 32-36 [facility] Comment on above: Performed By: #### L 300.3900, L100.0100, L300.4310, L500.2500, L503.6620, L501.5425, L501.5200 ####[facility] [address] [place], [address] MCV (RBC) [Entitic vol] 90.9 fL Normal 80-94 [facility] Comment on above: Performed By: #### L 300.3900, L100.0100, L300.4310, L500.2500, L503.6620, L501.5425, L501.5200 ####[facility] [address] [place], [address] Monocytes/100 WBC (Bld) 6.2 % Normal 0-10 [facility] Comment on above: Performed By: #### L 300.3900, L100.0100, L300.4310, L500.2500, L503.6620, L501.5425, L501.5200 ####[facility] [address] [place], [address] Neutrophils/100 WBC (Bld) 80.8 % High 47-70 [facility] Comment on above: Performed By: #### L 300.3900, L100.0100, L300.4310, L500.2500, L503.6620, L501.5425, L501.5200 ####[facility] [address] [place], [address] Nucleated RBC (Bld) [#/Vol] 0 10*3/uL Normal 0-5 [facility] Comment on above: Performed By: #### L 300.3900, L100.0100, L300.4310, L500.2500, L503.6620, L501.5425, L501.5200 ####[facility] [address] [place], [address] Platelet mean volume (Bld) [Entitic vol] 11.4 fL Normal 6.2-12.0 [facility] Comment on above: Performed By: #### L 300.3900, L100.0100, L300.4310, L500.2500, L503.6620, L501.5425, L501.5200 ####[facility] [address] [place], [address] Platelets (Bld) [#/Vol] 227 10*3/uL Normal 150-450 [facility] Comment on above: Performed By: #### L 300.3900, L100.0100, L300.4310, L500.2500, L503.6620, L501.5425, L501.5200 ####[facility] [address] [place], [address] RBC (Bld) [#/Vol] 4.28 10*6/uL Low 4.6-6.2 [facility] Comment on above: Performed By: #### L 300.3900, L100.0100, L300.4310, L500.2500, L503.6620, L501.5425, L501.5200 ####[facility] [address] [place], [address] RDW SD 46.5 fl High 35.1-43.9 [facility] Comment on above: Performed By: #### L 300.3900, L100.0100, L300.4310, L500.2500, L503.6620, L501.5425, L501.5200 ####[facility] [address] [place], [address] WBC (Bld) [#/Vol] 24.4 10*3/uL High 4.4-11.0 [facility] Comment on above: Performed By: #### L 300.3900, L100.0100, L300.4310, L500.2500, L503.6620, L501.5425, L501.5200 ####[facility] [address] [place], [address] Chest 1 View (Portable)on Chest 1 View (Portable) Normal [facility] Echo Completeon 09-12-2024 Echo Complete Normal [facility] Emergency Department Summary on 09-12-2024 Emergency Department Summary Normal [facility] Kidney and Bladderon 024 Kidney and Bladder Normal [facility] L501.4020on 09-12-2024 TROPONIN-I HS 346 pg/mL Invalid Interpretation Code 3.0-78.0 [facility] Comment on above: Order Comment: 'TROP ' Serial specimen #1, #2 or #3: 3 Result Comment: Crit ical Result(s) Called at: 09:19:13 09/12/2024 by:Eve Mendoza to Tania Cruz. Results read back by same. Please Note: New Test Units and Gender Specific Reference Ranges. For more information see Policy Stat Procedure [place] High Sensitivity Troponin (TNIH) and attachments. Performed By: #### L 501.4020 ####[facility] [address] [place], [address] TROPONIN-I HS 205 pg/mL Invalid Interpretation Code 3.0-78.0 [facility] Comment on above: Result Comment: Crit ical Result(s) Called at: 06:27:52 09/12/2024 by:Eve Mendoza to Steffanie. Results read back by same. Please Note: New Test Units and Gender Specific Reference Ranges. For more information see Policy Stat Procedure [place] High Sensitivity Troponin (TNIH) and attachments. Performed By: #### L 501.4020 ####[facility] [address] [place], [address] L501.5425on 09-12-2024 TROPONIN-I HS 57 pg/mL Normal 3.0-78.0 [facility] Comment on above: Order Comment: 1Y Result Comment: Plea Note: New Test Units and Gender Specific Reference Ranges. For more information see Policy Stat Procedure [place] High Sensitivity Troponin (TNIH) and attachments. Performed By: #### L 300.3900, L100.0100, L300.4310, L500.2500, L503.6620, L501.5425, L501.5200 ####[facility] [address] [place], [address] Magnesiumon 09-12-2024 Magnesium [Mass/Vol] 2.1 mg/dL Normal 1.6-2.6 [facility] Comment on above: Order Comment: 1Y Performed By: #### L 300.3900, L100.0100, L300.4310, L500.2500, L503.6620, L501.5425, L501.5200 ####[facility] [address] [place], [address] Partial Thromboplast Timeon 09-12-2024 aPTT Coag (Bld) [Time] 35.1 s Normal 24.1-36.2 [facility] Comment on above: Performed By: #### L 300.3900, L100.0100, L300.4310, L500.2500, L503.6620, L501.5425, L501.5200 ####[facility] [address] [place], [address] Prothrombin Time w/INRon INR Coag (PPP) [Relative time] 1.1 {INR} Normal [facility] Comment on above: Performed By: #### L 300.3900, L100.0100, L300.4310, L500.2500, L503.6620, L501.5425, L501.5200 ####[facility] [address] [place], [address] PT Coag (PPP) [Time] 14.6 s Normal 11.7-14.9 [facility] Comment on above: Performed By: #### L 300.3900, L100.0100, L300.4310, L500.2500, L503.6620, L501.5425, L501.5200 ####[facility] [address] [place], [address] Renal Artery Duplex Ultrasou ndon 09-12-2024 Renal Artery Duplex Ultrasound Normal [facility] CBC W Auto Differential pane l (Bld)on 07-07-2024 Basophils (Bld) [#/Vol] 0.09 x10*3/uL Normal 0.00-0.10 [facility] Comment on above: Performed By: #### 5 7021-8 #### MAGGI PARNELL ([id number]) [facility] ([facility]) [address] [place] [address] 15827 Basophils/100 WBC (Bld) 1.1 % Normal 0.0-2.0 [facility] Comment on above: Performed By: #### 5 7021-8 #### MAGGI PARNELL ([id number]) [facility] ([facility]) [address] [place] [address] 34366 Eosinophils (Bld) [#/Vol] 0.43 x10*3/uL High 0.00-0. 40 [facility] Comment on above: Performed By: #### 5 7021-8 #### MAGGI PARNELL ([id number]) [facility] ([facility]) [address] [place] [address] 58200 Eosinophils/100 WBC (Bld) 5.4 % Normal 0.0-6.0 [facility] Comment on above: Performed By: #### 5 7021-8 #### MAGGI PARNELL ([id number]) [facility] ([facility]) [address] [place] [address] 67791 Erythrocyte distribution width (RBC) [Ratio] 13.5 % Normal 11.5-14.5 [facility] Comment on above: Performed By: #### 5 7021-8 #### MAGGI PARNELL ([id number]) [facility] ([facility]) [address] [place] [address] 88381 Hematocrit (Bld) [Volume fraction] 43.5 % Normal 41.0-52.0 [facility] Comment on above: Performed By: #### 5 7021-8 #### MAGGI PARNELL ([id number]) [facility] ([facility]) [address] [place] [address] 76355 Hemoglobin (Bld) [Mass/Vol] 13.6 g/dL Normal 13.5-17.5 [facility] Comment on above: Performed By: #### 5 7021-8 #### MAGGI PARNELL ([id number]) [facility] ([facility]) [address] [place] [address] 34035 Immature granulocytes (Bld) [#/Vol] 0.02 x10*3/uL Normal 0.00-0.50 [facility] Comment on above: Performed By: #### 5 7021-8 #### MAGGI PARNELL ([id number]) [facility] ([facility]) [address] [place] [address] 36359 Immature granulocytes/100 WBC (Bld) 0.3 % Normal 0.0-0.9 [facility] Comment on above: Result Comment: Arielle ture Granulocyte Count (IG) includes promyelocytes, myelocytes and metamyelocytes but does not include bands. Percent differential counts (%) should be interpreted in the context of the absolute cell counts (cells/UL). Performed By: #### 5 7021-8 #### MAGGI PARNELL ([id number]) [facility] ([facility]) [address] [place] [address] 06635 Lymphocytes (Bld) [#/Vol] 2.08 x10*3/uL Normal 0.80-3. 00 [facility] Comment on above: Performed By: #### 5 7021-8 #### MAGGI PARNELL ([id number]) [facility] ([facility]) [address] [place] [address] 81607 Lymphocytes/100 WBC (Bld) 26.3 % Normal 13.0-44.0 [facility] Comment on above: Performed By: #### 5 7021-8 #### MAGGI PARNELL ([id number]) [facility] ([facility]) [address] [place] [address] 43663 MCH (RBC) [Entitic mass] 30.4 pg Normal 26.0-34.0 [facility] Comment on above: Performed By: #### 5 7021-8 #### MAGGI PARNELL ([id number]) [facility] ([facility]) [address] [place] [address] 59751 MCHC (RBC) [Mass/Vol] 31.3 g/dL Low 32.0-36.0 [facility] Comment on above: Performed By: #### 5 7021-8 #### MAGGI PARNELL ([id number]) [facility] ([facility]) [address] [place] [address] 18535 MCV (RBC) [Entitic vol] 97 fL Normal 80-100 [facility] Comment on above: Performed By: #### 5 7021-8 #### MAGGI PARNELL ([id number]) [facility] ([facility]) [address] [place] [address] 82701 Monocytes (Bld) [#/Vol] 0.60 x10*3/uL Normal 0.05-0.80 [facility] Comment on above: Performed By: #### 5 7021-8 #### MAGGI PARNELL ([id number]) [facility] ([facility]) [address] [place] [address] 21364 Monocytes/100 WBC (Bld) 7.6 % Normal 2.0-10.0 [facility] Comment on above: Performed By: #### 5 7021-8 #### MAGGI PARNELL ([id number]) [facility] ([facility]) [address] [place] [address] 89250 Neutrophils (Bld) [#/Vol] 4.68 x10*3/uL Normal 1.60-5. 50 [facility] Comment on above: Result Comment: Perc ent differential counts (%) should be interpreted in the context of the absolute cell counts (cells/uL). Performed By: #### 5 7021-8 #### MAGGI PARNELL ([id number]) [facility] ([facility]) [address] [place] [address] 46850 Neutrophils/100 WBC (Bld) 59.3 % Normal 40.0-80.0 [facility] Comment on above: Performed By: #### 5 7021-8 #### MAGGI PARNELL ([id number]) [facility] ([facility]) [address] [place] [address] Nucleated RBC/100 WBC (Bld) [Ratio] 0.0 /100 WBCs Normal 0.0-0.0 [facility] Comment on above: Performed By: #### 5 7021-8 #### MGAGI PARNELL ([id number]) [facility] ([facility]) [address] [place] [address] 01875 Platelets (Bld) [#/Vol] 260 x10*3/uL Normal 150-450 [facility] Comment on above: Performed By: #### 5 7021-8 #### MAGGI PARNELL ([id number]) [facility] ([facility]) [address] [place] [address] RBC (Bld) [#/Vol] 4.48 x10*6/uL Low 4.50-5.90 [facility] Comment on above: Performed By: #### 5 7021-8 #### MAGGI PARNELL ([id number]) [facility] ([facility]) [address] [place] [address] WBC (Bld) [#/Vol] 7.9 x10*3/uL Normal 4.4-11.3 [facility] Comment on above: Performed By: #### 5 7021-8 #### MAGGI PARNELL ([id number]) [facility] ([facility]) [address] [place] [address] Comprehensive metabolic 2000 panelon 07-07-2024 Albumin BCP dye [Mass/Vol] 4.3 g/dL Normal 3.4-5.0 [facility] Comment on above: Performed By: #### 2 4323-8 #### MAGGI PARNELL ([id number]) [facility] ([facility]) [address] [place], [place] [id number] ALP [Catalytic activity/Vol] 69 U/L Normal 33-136 [facility] Comment on above: Performed By: #### 2 4323-8 #### MAGGI PARNELL ([id number]) [facility] ([facility]) [address] [place] [address] ALT With P-5'-P [Catalytic activity/Vol] 8 U/L Low 10-52 [facility] Comment on above: Result Comment: Twila ents treated with Sulfasalazine may generate falsely decreased results for ALT. Performed By: #### 2 4323-8 #### MAGGI PARNELL ([id number]) [facility] ([facility]) [address] [place] [address] Anion gap [Moles/Vol] 14 mmol/L Normal 10-20 [facility] Comment on above: Performed By: #### 2 4323-8 #### MAGGI PARNELL ([id number]) [facility] ([facility]) [address] [place] [address] AST With P-5'-P [Catalytic activity/Vol] 13 U/L Normal 9-39 [facility] Comment on above: Performed By: #### 2 432-8 #### MAGGI PARNELL ([id number]) [facility] ([facility]) [address] [address] 08374 Bilirubin [Mass/Vol] 0.5 mg/dL Normal 0.0-1.2 [facility] Comment on above: Performed By: #### 2 432-8 #### MAGGI PARNELL ([id number]) [facility] ([facility]) [address] [place] [address] Calcium [Mass/Vol] 9.5 mg/dL Normal 8.6-10.3 [facility] Comment on above: Performed By: #### 2 4323-8 #### MAGGI PARNELL ([id number]) [facility] ([facility]) [address] [place] [address] Chloride [Moles/Vol] 106 mmol/L Normal 98-107 [facility] Comment on above: Performed By: #### 2 4323-8 #### MAGGI PARNELL ([id number]) [facility] ([facility]) [facility] [place] [address] CO2 [Moles/Vol] 27 mmol/L Normal 21-32 [facility] Comment on above: Performed By: #### 2 4323-8 #### MAGGI PARNELL ([id number]) [facility] ([facility]) [address] [place] [address] Creatinine [Mass/Vol] 1.61 mg/dL High 0.50-1.30 [facility] Comment on above: Performed By: #### 2 4323-8 #### MAGGI PARNELL ([id number]) [facility] ([facility]) [address] [place] [address] 56260 Glomerular filtration rate/1.73 sq M.predicted 43 mL/min/1.73m*2 Low >60 [facility] Comment on above: Result Comment: Calc ulations of estimated GFR are performed using the 2020 CKD-EPI Study Refit equation without the race variable for the IDMS-Traceable creatinine methods. https://jasn.asnjournals.org/content///ASN.20 27679508 Performed By: #### 2 4323-8 #### MAGGI PARNELL ([id number]) [facility] ([facility]) [address] [place] [address] 12558 Glucose [Mass/Vol] 119 mg/dL High 74-99 [facility] Comment on above: Performed By: #### 2 4323-8 #### MAGGI PARNELL ([id number]) [facility] ([facility]) [address] [place] [address] 47026 Potassium [Moles/Vol] 4.0 mmol/L Normal 3.5-5.3 [facility] Comment on above: Performed By: #### 2 4323-8 #### MAGGI PARNELL ([id number]) [facility] ([facility]) [address] [place] [address] 03287 Protein [Mass/Vol] 6.8 g/dL Normal 6.4-8.2 [facility] Comment on above: Performed By: #### 2 4323-8 #### MAGGI PARNELL ([id number]) [facility] ([facility]) [address] [place] [address] 39644 Sodium [Moles/Vol] 143 mmol/L Normal 136-145 [facility] Comment on above: Performed By: #### 2 4323-8 #### MAGGI PARNELL ([id number]) [facility] ([facility]) [address] [place] [address] Urea nitrogen [Mass/Vol] 28 mg/dL High 6-23 [facility] Comment on above: Performed By: #### 2 4323-8 #### MAGGI PARNELL ([id number]) [facility] ([facility]) [address] [place] [address] HbA1c (Bld) [Mass fraction]o n 07-07-2024 Average glucose Estimated from glycated hemoglobin (Bld) [Mass/Vol] 180 mg/dL Normal Not Established [facility] Comment on above: Order Comment: Diagn osis of Diabetes-Adults Non-Diabetic: < or = 5.6% Increased risk for developing diabetes: 5.7-6.4% Diagnostic of diabetes: > or = 6.5% Performed By: #### 4 548-4 #### ALENA Paredes ([id number]) [facility] ([facility]) [id number] [place] [address] 91748 Hemoglobin A1c/Hemoglobin.to alcira 07-07-2024 HbA1c (Bld) [Mass fraction] 7.9 % High see below [facility] Comment on above: Order Comment: Diagn osis of Diabetes-Adults Non-Diabetic: < or = 5.6% Increased risk for developing diabetes: 5.7-6.4% Diagnostic of diabetes: > or = 6.5% Performed By: #### 4 548-4 #### ALENA Paredes ([id number]) [facility] ([facility]) [id number] [place] [address] 52951 Phosphateon 07-07-2024 Phosphate [Mass/Vol] 3.8 mg/dL Normal 2.5-4.9 [facility] Comment on above: Result Comment: The performance characteristics of phosphorus testing in heparinized plasma have been validated by the individual laboratory site where testing is performed. Testing on heparinized plasma is not approved by the FDA; however, such approval is not necessary. Performed By: #### 2 777-1 #### MAGGI PARNELL ([id number]) [facility] ([facility]) [address] [place] [address] 20903 Thyrotropinon 07-07-2024 TSH Qn 0.85 m[IU]/L Normal 0.44-3.98 [facility] Comment on above: Order Comment: TSH t esting is performed using different testing methodology at [facility] than at [facility]. Direct result comparisons should only be made within the same method. Performed By: #### 3 016-3 #### MAGGI PARNELL ([id number]) [facility] ([facility]) [address] [place] [address] 47818 Thyroxine.freeon 07-07-2024 Free T4 [Mass/Vol] 1.01 ng/dL Normal 0.61-1.12 [facility] Comment on above: Order Comment: Thyro xine Free testing is performed using different testing methodology at [facility] than at [facility]. Direct result comparisons should only be made [...] By: #### 3 024-7 #### MAGGI PARNELL ([id number]) [facility] ([facility]) [address] [place] [address] Urateon 07-07-2024 Urate [Mass/Vol] 5.7 mg/dL Normal 4.0-7.5 [facility] Comment on above: Result Comment: Hortencia puncture immediately after or during the administration of Metamizole may lead to falsely low results. Testing should be performed immediately prior to Metamizole dosing. Performed By: #### 3 084-1 #### MAGGI PARNELL ([id number]) [facility] ([facility]) [address] [place] [address] 06963 PT D/C Summary (1)on 05-17- 024 PT D/C Summary (1) Normal [facility] Inital Evaluation (1) - PTon 06-19-2024 Inital Evaluation (1) - PT Normal [facility] Albumin/Creatinineon 024 Albumin/Creatinine DL <= 20 mg/L (U) [Mass ratio] 221.6 ug/mg Creat High <30.0 [facility] Comment on above: Performed By: #### 1 4959-1 #### ALENA Paredes ([id number]) [facility] ([facility]) [address] [place] [address] 50526 Albumin/Creatinine DL <= 20 mg/L (U) [Mass ratio]on 02-07-2024 Albumin DL <= 20 mg/L (U) [Mass/Vol] 219.8 mg/L Normal Not established [facility] Comment on above: Performed By: #### 1 4959-1 #### ALENA Paredes ([id number]) [facility] ([facility]) [address] [place] [address] 57816 Creatinine (U) [Mass/Vol] 99.2 mg/dL Normal 20.0-370.0 [facility] Comment on above: Performed By: #### 1 4959-1 #### ALENA Paredes ([id number]) [facility] ([facility]) [address] [place] [address] 93922 Comprehensive metabolic 2000 panelon 02-07-2024 Albumin BCP dye [Mass/Vol] 4.0 g/dL Normal 3.4-5.0 [facility] Comment on above: Performed By: #### 2 4323-8 #### MAGGI PARNELL ([id number]) [facility] ([facility]) [address] [place] [address] 00862 ALP [Catalytic activity/Vol] 77 U/L Normal 33-136 [facility] Comment on above: Performed By: #### 2 4323-8 #### MAGGI PARNELL ([id number]) [facility] ([facility]) [address] [place] [address] 31968 ALT With P-5'-P [Catalytic activity/Vol] 7 U/L Low 10-52 [facility] Comment on above: Result Comment: Twila ents treated with Sulfasalazine may generate falsely decreased results for ALT. Performed By: #### 2 4323-8 #### MAGGI PARNELL ([id number]) [facility] ([facility]) [facility] [place] [address] Anion gap [Moles/Vol] 12 mmol/L Normal 10-20 [facility] Comment on above: Performed By: #### 2 4323-8 #### MAGGI PARNELL ([id number]) [facility] ([facility]) [address] [place] [address] 35812 AST With P-5'-P [Catalytic activity/Vol] 14 U/L Normal 9-39 [facility] Comment on above: Performed By: #### 2 432-8 #### MAGGI PARNELL ([id number]) [facility] ([facility]) [address] [place] [address] 88901 Bilirubin [Mass/Vol] 0.4 mg/dL Normal 0.0-1.2 [facility] Comment on above: Performed By: #### 2 432-8 #### MAGGI PARNELL ([id number]) [facility] ([facility]) [address] [place] [address] 42798 Calcium [Mass/Vol] 9.2 mg/dL Normal 8.6-10.3 [facility] Comment on above: Performed By: #### 2 432-8 #### MAGGI PARNELL ([id number]) [facility] ([facility]) [address] [place] [address] 30304 Chloride [Moles/Vol] 105 mmol/L Normal 98-107 [facility] Comment on above: Performed By: #### 2 4323-8 #### MAGGI PARNELL ([id number]) [facility] ([facility]) [address] [place] [address] 63843 CO2 [Moles/Vol] 29 mmol/L Normal 21-32 [facility] Comment on above: Performed By: #### 2 4323-8 #### MAGGI PARNELL ([id number]) [facility] ([facility]) [address] [address] Creatinine [Mass/Vol] 1.92 mg/dL High 0.50-1.30 [facility] Comment on above: Performed By: #### 2 4323-8 #### MAGGI PARNELL ([id number]) [facility] ([facility]) [address] [place] [address] 21837 Glomerular filtration rate/1.73 sq M.predicted 35 mL/min/1.73m*2 Low >60 [facility] Comment on above: Result Comment: Calc ulations of estimated GFR are performed using the 2020 CKD-EPI Study Refit equation without the race variable for the IDMS-Traceable creatinine methods. https://jasn.asnjournals.org/content//ASN.20 78731258 Performed By: #### 2 432-8 #### MAGGI PARNELL ([id number]) [facility] ([facility]) [address] [place] [address] 59903 Glucose [Mass/Vol] 81 mg/dL Normal 74-99 [facility] Comment on above: Performed By: #### 2 432-8 #### MAGGI PARNELL ([id number]) [facility] ([facility]) [address] [place] [address] 36150 Potassium [Moles/Vol] 4.5 mmol/L Normal 3.5-5.3 [facility] Comment on above: Performed By: #### 2 432-8 #### MAGGI PARNELL ([id number]) [facility] ([facility]) [address] [place] [address] 18512 Protein [Mass/Vol] 6.4 g/dL Normal 6.4-8.2 [facility] Comment on above: Performed By: #### 2 4323-8 #### MAGGI PARNELL ([id number]) [facility] ([facility]) [address] [place] [address] 71725 Sodium [Moles/Vol] 141 mmol/L Normal 136-145 [facility] Comment on above: Performed By: #### 2 4323-8 #### MAGGI PARNELL ([id number]) [facility] ([facility]) [address] [place] [address] Urea nitrogen [Mass/Vol] 29 mg/dL High 6-23 [facility] Comment on above: Performed By: #### 2 4323-8 #### TAY PARMJIT ([id number]) [facility] ([facility]) [address] [place] [address] Basophil percentageOrdered B y: Ryley Jeter on 12-15-2023 Chloride [Moles/Vol] 109 mmol/L 98-107 [facility] Glucose [Mass/Vol] 126 mg/dL 74-106 [facility] Comment on above: Fasting Glucose resu lt greater than or equal to 126 mg/dL suggests DIABETES MELLITUS per A.D.A. criteria. Potassium [Moles/Vol] 4.1 mmol/L 3.5-5.1 [facility] Sodium [Moles/Vol] 140 mmol/L 136-145 [facility] Laboratory - Chemistry and C hemistry - challengeOrdered By: Ryley Jeter on 12-15-2023 CO2 [Moles/Vol] 29.0 mmol/L 21.0-32.0 [facility] Urea nitrogen/Creatinine [Mass ratio] 14.9 mg/mg 10-20 [facility] No Panel InformationOrdered By: Ryley Jeter on 12-15-2023 Estimated GFR (MDRD) Amer 45 mL/min >60 [facility] Comment on above: GFR Calc Estimated GFR (MDRD) Non-Af Amer 37 mL/min >60 [facility] Comment on above: Non- GFR Calc Serum or plasma calcium nikkie urement (mass/volume)Ordered By: Ryley Jeter on 12-15-2023 Calcium [Mass/Vol] 9.4 mg/dL 8.5-10.1 [facility] Serum or plasma creatinine m easurement (mass/volume)Ordered By: Ryley Jeter on 12-15-2023 Creatinine [Mass/Vol] 1.88 mg/dL 0.70-1.30 [facility] Comment on above: The validity of the calculated GFR & GFRAA in patients over 70 years has not been determined. Clinical correlation is essential. Serum or plasma urea nitroge n measurement (mass/volume)Ordered By: Ryley Jeter on 12-15-2023 Urea nitrogen [Mass/Vol] 28 mg/dL 7-18 [facility] Thin prep Papanicolaou smear with manual screeningOrdered By: Ryley Jeter on 12-15-2023 Thin prep Papanicolaou smear with manual screening 2 5-15 [facility] APTTOrdered By: Burton lr on 12-01-2023 aPTT Coag (Bld) [Time] 35 s High [facility] Basic metabolic 2000 panelon 12-01-2023 Anion gap [Moles/Vol] 10 mmol/L 10 - 2 0 mmol/L [facility] Calcium [Mass/Vol] 8.9 mg/dL 8.4 - 10. 2 mg/dL [facility] Chloride [Moles/Vol] 105 mmol/L 98 - 10 8 mmol/L [facility] Creatinine [Mass/Vol] 1.76 mg/dL High 0.80 - 1.30 mg/dL [facility] GFR/1.73 sq M.predicted CKD-EPI (S/P/Bld) [Vol rate/Area] 39 Low - PINF [facility] Glucose [Mass/Vol] 82 mg/dL 65 - 99 mg/dL [facility] HCO3 [Moles/Vol] 30 mmol/L 21 - 32 mmol/L [facility] Interpretation and review of laboratory results Abnormal [facility] Potassium [Moles/Vol] 3.4 mmol/L Low 3.5 - 5.1 mmol/L [facility] Sodium [Moles/Vol] 142 mmol/L 135 - 145 mmol/L [facility] Urea nitrogen [Mass/Vol] 26 mg/dL High 8 - 25 mg/d L [facility] Urea nitrogen/Creatinine [Mass ratio] 14.8 mg/mg 10.0 - 20.0 [facility] CBC Auto Differentialon 11-03 Basophils (Bld) [#/Vol] 0.06 10*3/uL [facility] Basophils/100 WBC (Bld) 0.7 % [facility] Eosinophils (Bld) [#/Vol] 0.61 10*3/uL High [facility] Eosinophils/100 WBC (Bld) 7.4 % [facility] Erythrocyte distribution width (RBC) [Entitic vol] 13.3 % 11.6 - 14.8 % [facility] Hematoc[facility] (Bld) [Volume fraction] 36.6 % Low 41.0 - 53.0 % [facility] Hemoglobin (Bld) [Mass/Vol] 12.0 g/dL Low 13.5 - 17.5 g/dL [facility] Immature granulocytes (Bld) [#/Vol] 0.02 10*3/uL [facility] Immature granulocytes/100 WBC (Bld) 0.20 % [facility] Interpretation and review of laboratory results Abnormal [facility] Lymphocytes (Bld) [#/Vol] 1.32 10*3/uL [facility] Lymphocytes/100 WBC (Bld) 16.1 % [facility] MCH (RBC) [Entitic mass] 30.5 pg 26. 0 - 34.0 pg [facility] MCHC (RBC) [Mass/Vol] 32.8 g/dL 31.0 - 37.0 g/dL [facility] MCV (RBC) [Entitic vol] 92.9 fL 80.0 - 100.0 fL [facility] Monocytes (Bld) [#/Vol] 0.96 10*3/uL [facility] [facility] Monocytes/100 WBC (Bld) 11.7 % [facility] Neutrophils (Bld) [#/Vol] 5.25 10*3/uL [facility] Neutrophils/100 WBC (Bld) 63.9 % [facility] Nucleated RBC (Bld) [#/Vol] 0.00 10*3/uL [facility] Nucleated RBC/100 WBC (Bld) [Ratio] 0.0 % [facility] Platelet mean volume (Bld) [Entitic vol] 12.4 fL 9.4 - 12.4 fL [facility] Platelets (Bld) [#/Vol] 115 10*3/uL Low [facility] RBC (Bld) [#/Vol] 3.94 10*6/uL Low [facility] WBC (Bld) [#/Vol] 8.22 10*3/uL [facility] Glucose (Bld) [Mass/Vol]on 0 12-01-2023 Glucose [Mass/Vol] 151 mg/dL High 65 - 99 mg/dL [facility] Interpretation and review of laboratory results Abnormal [facility] Glucose [Mass/Vol] 472 mg/dL Critically high 65 - 99 mg/d L [facility] Interpretation and review of laboratory results Abnormal [facility] Glucose [Mass/Vol] 454 mg/dL Critically high 65 - 99 mg/d L [facility] Interpretation and review of laboratory results Abnormal [facility] Glucose [Mass/Vol] 87 mg/dL 65 - 99 mg/dL [facility] Interpretation and review of laboratory results Normal [facility] Magnesium Levelon 12-01-2023 Magnesium [Mass/Vol] 2.1 mg/dL 1.6 - 2 .4 mg/dL [facility] Magnesium [Mass/Vol]on 12-01 Interpretation and review of laboratory results Normal [facility] aPTT Coag (Bld) [Time]Ordere d By: Burton Zendejas on 12-01-2023 Interpretation and review of laboratory results Abnormal [facility] APTTOrdered By: Zoila titus on 11-30-2023 aPTT Coag (Bld) [Time] 35 s High [facility] Basic metabolic 2000 panelon 11-30-2023 Anion gap [Moles/Vol] 9 mmol/L Low 10 - 2 0 mmol/L [facility] Calcium [Mass/Vol] 8.6 mg/dL 8.4 - 10. 2 mg/dL [facility] Chloride [Moles/Vol] 104 mmol/L 98 - 10 8 mmol/L [facility] Creatinine [Mass/Vol] 1.77 mg/dL High 0.80 - 1.30 mg/dL [facility] GFR/1.73 sq M.predicted CKD-EPI (S/P/Bld) [Vol rate/Area] 39 Low - PINF [facility] Glucose [Mass/Vol] 322 mg/dL High 65 - 99 mg/dL [facility] HCO3 [Moles/Vol] 29 mmol/L 21 - 32 mmol/L [facility] Interpretation and review of laboratory results Abnormal [facility] Potassium [Moles/Vol] 3.8 mmol/L 3.5 - 5.1 mmol/L [facility] Sodium [Moles/Vol] 138 mmol/L 135 - 145 mmol/L [facility] Urea nitrogen [Mass/Vol] 30 mg/dL High 8 - 25 mg/d L [facility] Urea nitrogen/Creatinine [Mass ratio] 16.9 mg/mg 10.0 - 20.0 [facility] CBC Auto Differentialon 11-03 Basophils (Bld) [#/Vol] 0.08 10*3/uL [facility] Basophils/100 WBC (Bld) 0.9 % [facility] Eosinophils (Bld) [#/Vol] 0.71 10*3/uL High [facility] Eosinophils/100 WBC (Bld) 8.0 % [facility] Erythrocyte distribution width (RBC) [Entitic vol] 13.5 % 11.6 - 14.8 % [facility] alth Hematocrit (Bld) [Volume fraction] 35.9 % Low 41.0 - 53.0 % [facility] Hemoglobin (Bld) [Mass/Vol] 11.8 g/dL Low 13.5 - 17.5 g/dL [facility] Immature granulocytes (Bld) [#/Vol] 0.03 10*3/uL [facility] Immature granulocytes/100 WBC (Bld) 0.30 % [facility] Interpretation and review of laboratory results Abnormal [facility] Lymphocytes (Bld) [#/Vol] 1.18 10*3/uL [facility] Lymphocytes/100 WBC (Bld) 13.3 % [facility] MCH (RBC) [Entitic mass] 30.5 pg 26. 0 - 34.0 pg [facility] MCHC (RBC) [Mass/Vol] 32.9 g/dL 31.0 - 37.0 g/dL [facility] MCV (RBC) [Entitic vol] 92.8 fL 80.0 - 100.0 fL [facility] Monocytes (Bld) [#/Vol] 0.84 10*3/uL [facility] Monocytes/100 WBC (Bld) 9.4 % [facility] Neutrophils (Bld) [#/Vol] 6.05 10*3/uL [facility] Neutrophils/100 WBC (Bld) 68.1 % [facility] Nucleated RBC (Bld) [#/Vol] 0.00 10*3/uL [facility] Nucleated RBC/100 WBC (Bld) [Ratio] 0.0 % [facility] Platelet mean volume (Bld) [Entitic vol] 12.1 fL 9.4 - 12.4 fL [facility] Platelets (Bld) [#/Vol] 120 10*3/uL Low [facility] RBC (Bld) [#/Vol] 3.87 10*6/uL Low [facility] WBC (Bld) [#/Vol] 8.89 10*3/uL [facility]on 01-30 -2024 GE RIS GE RIS [facility] CT Chest WO contrastOrdered By: Alice Kaminski on 11-30-2023 [facility] Work Phone: Echocardiogram completeon Aortic valve area 2.75848 cm [facility] AV mean gradient 3.60871 mmHg [facility] AV peak gradient 6.66997 mmHg [facility] EF 63.3016 % [facility] FUJI SYNAPSE CV [facility] Electrocardiogram, 12-leadon 11-30-2023 Atrial Rate 97 BPM [facility] P [place] 77 degrees [facility] P-R Interval 152 ms [facility] Q-T Interval 376 ms [facility] QRS Duration 76 ms [facility] QTC Calculation (Bezet) 477 ms O [facility] R [place] 72 degrees [facility] T [place] 51 degrees [facility] Ventricular Rate 97 BPM [facility] MUSE [facility] Glucose (Bld) [Mass/Vol]on 0 11-30-2023 Glucose [Mass/Vol] 190 mg/dL High 65 - 99 mg/dL [facility] Interpretation and review of laboratory results Abnormal [facility] Glucose [Mass/Vol] 103 mg/dL High 65 - 99 mg/dL [facility] Interpretation and review of laboratory results Abnormal [facility] Magnesium Levelon 11-30-2023 Magnesium [Mass/Vol] 2.2 mg/dL 1.6 - 2 .4 mg/dL [facility] Magnesium [Mass/Vol]on 11-30 Interpretation and review of laboratory results Normal [facility] No Panel Informationon 11-30 [facility] aPTT Coag (Bld) [Time]Ordere d By: Zoila Ruiz on 11-30-2023 Interpretation and review of laboratory results Abnormal [facility] APTTon 11-29-2023 aPTT Coag (Bld) [Time] 38 s High [facility] APTT Heparin Coverageon 11-02 aPTT Coag (Bld) [Time] 98 s High [facility] Interpretation and review of laboratory results Abnormal [facility] APTT Heparin CoverageOrdered By: Tania Escobedo on 11-29-2023 aPTT Coag (Bld) [Time] Critically high [facility] Interpretation and review of laboratory results Abnormal [facility] Bacteria identified Aer cx N om (Sput)Ordered By: Franco Armenta on 11-29-2023 Microscopic observation Gram stain Nom (Sput) Few WBC [facility] Microscopic observation Gram stain Nom (Sput) Few Epithelial Cells [facility] Microscopic observation Gram stain Nom (Sput) Positive [facility] Microscopic observation Gram stain Nom (Sput) Rare Mixed [facility] Basic metabolic 2000 panelon 11-29-2023 Anion gap [Moles/Vol] 7 mmol/L Low 10 - 2 0 mmol/L [facility] Calcium [Mass/Vol] 8.4 mg/dL 8.4 - 10. 2 mg/dL [facility] Chloride [Moles/Vol] 106 mmol/L 98 - 10 8 mmol/L [facility] Creatinine [Mass/Vol] 1.91 mg/dL High 0.80 - 1.30 mg/dL [facility] GFR/1.73 sq M.predicted CKD-EPI (S/P/Bld) [Vol rate/Area] 35 Low - PINF [facility] Glucose [Mass/Vol] 234 mg/dL High 65 - 99 mg/dL [facility] HCO3 [Moles/Vol] 28 mmol/L 21 - 32 mmol/L [facility] Interpretation and review of laboratory results Abnormal [facility] Potassium [Moles/Vol] 4.0 mmol/L 3.5 - 5.1 mmol/L [facility] Sodium [Moles/Vol] 137 mmol/L 135 - 145 mmol/L [facility] Urea nitrogen [Mass/Vol] 34 mg/dL High 8 - 25 mg/d L [facility] Urea nitrogen/Creatinine [Mass ratio] 17.8 mg/mg 10.0 - 20.0 [facility] CBC Auto Differentialon 11-02 Basophils (Bld) [#/Vol] 0.10 10*3/uL [facility] Basophils/100 WBC (Bld) 0.9 % [facility] Eosinophils (Bld) [#/Vol] 0.48 10*3/uL [facility] Eosinophils/100 WBC (Bld) 4.4 % [facility] Erythrocyte distribution width (RBC) [Entitic vol] 14.0 % 11.6 - 14.8 % [facility] alth Hematocrit (Bld) [Volume fraction] 32.8 % Low 41.0 - 53.0 % [facility] Hemoglobin (Bld) [Mass/Vol] 10.7 g/dL Low 13.5 - 17.5 g/dL [facility] Immature granulocytes (Bld) [#/Vol] 0.05 10*3/uL [facility] Immature granulocytes/100 WBC (Bld) 0.50 % [facility] Interpretation and review of laboratory results Abnormal [facility] Lymphocytes (Bld) [#/Vol] 1.92 10*3/uL [facility] Lymphocytes/100 WBC (Bld) 17.7 % [facility] MCH (RBC) [Entitic mass] 30.6 pg 26. 0 - 34.0 pg [facility] MCHC (RBC) [Mass/Vol] 32.6 g/dL 31.0 - 37.0 g/dL [facility] MCV (RBC) [Entitic vol] 93.7 fL 80.0 - 100.0 fL [facility] Monocytes (Bld) [#/Vol] 1.02 10*3/uL High [facility] Monocytes/100 WBC (Bld) 9.4 % [facility] Neutrophils (Bld) [#/Vol] 7.26 10*3/uL High [facility] Neutrophils/100 WBC (Bld) 67.1 % [facility] Nucleated RBC (Bld) [#/Vol] 0.00 10*3/uL [facility] Nucleated RBC/100 WBC (Bld) [Ratio] 0.0 % [facility] Platelet mean volume (Bld) [Entitic vol] 12.1 fL 9.4 - 12.4 fL [facility] Platelets (Bld) [#/Vol] 130 10*3/uL Low [facility] RBC (Bld) [#/Vol] 3.50 10*6/uL Low [facility] WBC (Bld) [#/Vol] 10.83 10*3/uL [facility] CT Chest WO contraston 11-29 Radiology Study observation (narrative) [facility] Glucose (Bld) [Mass/Vol]on 0 11-29-2023 Glucose [Mass/Vol] 174 mg/dL High 65 - 99 mg/dL [facility] Interpretation and review of laboratory results Abnormal [facility] Glucose [Mass/Vol] 266 mg/dL High 65 - 99 mg/dL [facility] Interpretation and review of laboratory results Abnormal [facility] HbA1c (Bld) [Mass fraction]O rdered By: Lidia Ruff on 11-29-2023 Average glucose Estimated from glycated hemoglobin (Bld) [Mass/Vol] 174 mg/dL High 68 - 114 mg/dL [facility] Interpretation and review of laboratory results Abnormal [facility] Hemoglobin [id number] By: Davina Ruff on 11-29-2023 HbA1c (Bld) [Mass fraction] 7.7 % High 4.0 - 5.6 % [facility] Magnesium Levelon 11-29-2023 Magnesium [Mass/Vol] 2.2 mg/dL 1.6 - 2 .4 mg/dL [facility] Magnesium [Mass/Vol]on 11-29 Interpretation and review of laboratory results Normal [facility] No Panel Informationon 11-29 [facility] Sputum Aerobic CultureOrdere d By: Franco Armenta on 11-29-2023 Bacteria identified Aer cx Nom (Sput) Normal [place] After 48 Hours [facility] aPTT Coag (Bld) [Time]on Interpretation and review of laboratory results Abnormal [facility] APTTon 11-28-2023 aPTT Coag (Bld) [Time] 102 s High [facility] Basic metabolic 2000 panelon 11-28-2023 Anion gap [Moles/Vol] 13 mmol/L 10 - 2 0 mmol/L [facility] Calcium [Mass/Vol] 9.0 mg/dL 8.4 - 10. 2 mg/dL [facility] Chloride [Moles/Vol] 110 mmol/L High 98 - 10 8 mmol/L [facility] Creatinine [Mass/Vol] 1.99 mg/dL High 0.80 - 1.30 mg/dL [facility] GFR/1.73 sq M.predicted CKD-EPI (S/P/Bld) [Vol rate/Area] 34 Low - PINF [facility] Glucose [Mass/Vol] 183 mg/dL High 65 - 99 mg/dL [facility] HCO3 [Moles/Vol] 23 mmol/L 21 - 32 mmol/L [facility] Interpretation and review of laboratory results Abnormal [facility] Potassium [Moles/Vol] 4.3 mmol/L 3.5 - 5.1 mmol/L [facility] Sodium [Moles/Vol] 142 mmol/L 135 - 145 mmol/L [facility] Urea nitrogen [Mass/Vol] 33 mg/dL High 8 - 25 mg/d L [facility] Urea nitrogen/Creatinine [Mass ratio] 16.6 mg/mg 10.0 - 20.0 [facility] Anion gap [Moles/Vol] 9 mmol/L Low 10 - 2 0 mmol/L [facility] Calcium [Mass/Vol] 8.8 mg/dL 8.4 - 10. 2 mg/dL [facility] Chloride [Moles/Vol] 111 mmol/L High 98 - 10 8 mmol/L [facility] Creatinine [Mass/Vol] 2.03 mg/dL High 0.80 - 1.30 mg/dL [facility] GFR/1.73 sq M.predicted CKD-EPI (S/P/Bld) [Vol rate/Area] 33 Low - PINF [facility] Glucose [Mass/Vol] 160 mg/dL High 65 - 99 mg/dL [facility] HCO3 [Moles/Vol] 27 mmol/L 21 - 32 mmol/L [facility] Interpretation and review of laboratory results Abnormal [facility] Potassium [Moles/Vol] 4.3 mmol/L 3.5 - 5.1 mmol/L [facility] Sodium [Moles/Vol] 143 mmol/L 135 - 145 mmol/L [facility] Urea nitrogen [Mass/Vol] 34 mg/dL High 8 - 25 mg/d L [facility] Urea nitrogen/Creatinine [Mass ratio] 16.7 mg/mg 10.0 - 20.0 [facility] Anion gap [Moles/Vol] 10 mmol/L 10 - 2 0 mmol/L [facility] Calcium [Mass/Vol] 8.7 mg/dL 8.4 - 10. 2 mg/dL [facility] Chloride [Moles/Vol] 112 mmol/L High 98 - 10 8 mmol/L [facility] Creatinine [Mass/Vol] 2.03 mg/dL High 0.80 - 1.30 mg/dL [facility] GFR/1.73 sq M.predicted CKD-EPI (S/P/Bld) [Vol rate/Area] 33 Low - PINF [facility] Glucose [Mass/Vol] 119 mg/dL High 65 - 99 mg/dL [facility] HCO3 [Moles/Vol] 24 mmol/L 21 - 32 mmol/L [facility] Interpretation and review of laboratory results Abnormal [facility] Potassium [Moles/Vol] 3.9 mmol/L 3.5 - 5.1 mmol/L [facility] Sodium [Moles/Vol] 142 mmol/L 135 - 145 mmol/L [facility] Urea nitrogen [Mass/Vol] 35 mg/dL High 8 - 25 mg/d L [facility] Urea nitrogen/Creatinine [Mass ratio] 17.2 mg/mg 10.0 - 20.0 [facility] Beta hydroxybutyrate [Moles/ Vol]on 11-28-2023 Interpretation and review of laboratory results Abnormal [facility] Interpretation and review of laboratory results Abnormal [facility] Beta-Hydroxybutyrateon 11-28 Beta hydroxybutyrate [Moles/Vol] 0.8 mmol/L High 0.0 - 0.3 mmol/L [facility] Beta hydroxybutyrate [Moles/Vol] 0.4 mmol/L High 0.0 - 0.3 mmol/L [facility] Beta hydroxybutyrate [Moles/Vol] 0.6 mmol/L High 0.0 - 0.3 mmol/L [facility] CBC Auto Differentialon 11-02 Basophils (Bld) [#/Vol] 0.07 10*3/uL [facility] Basophils/100 WBC (Bld) 0.5 % [facility] Eosinophils (Bld) [#/Vol] 0.09 10*3/uL [facility] Eosinophils/100 WBC (Bld) 0.6 % [facility] Erythrocyte distribution width (RBC) [Entitic vol] 14.3 % 11.6 - 14.8 % [facility] alth Hematocrit (Bld) [Volume fraction] 33.6 % Low 41.0 - 53.0 % [facility] Hemoglobin (Bld) [Mass/Vol] 10.8 g/dL Low 13.5 - 17.5 g/dL [facility] Immature granulocytes (Bld) [#/Vol] 0.05 10*3/uL [facility] Immature granulocytes/100 WBC (Bld) 0.40 % [facility] Interpretation and review of laboratory results Abnormal [facility] Lymphocytes (Bld) [#/Vol] 2.69 10*3/uL [facility] Lymphocytes/100 WBC (Bld) 18.9 % [facility] MCH (RBC) [Entitic mass] 30.4 pg 26. 0 - 34.0 pg [facility] MCHC (RBC) [Mass/Vol] 32.1 g/dL 31.0 - 37.0 g/dL [facility] MCV (RBC) [Entitic vol] 94.6 fL 80.0 - 100.0 fL [facility] Monocytes (Bld) [#/Vol] 1.26 10*3/uL High [facility] Monocytes/100 WBC (Bld) 8.9 % [facility] Neutrophils (Bld) [#/Vol] 10.06 10*3/uL High [facility] Neutrophils/100 WBC (Bld) 70.7 % [facility] Nucleated RBC (Bld) [#/Vol] 0.00 10*3/uL [facility] Nucleated RBC/100 WBC (Bld) [Ratio] 0.0 % [facility] Platelet mean volume (Bld) [Entitic vol] 11.9 fL 9.4 - 12.4 fL [facility] Platelets (Bld) [#/Vol] 151 10*3/uL [facility] RBC (Bld) [#/Vol] 3.55 10*6/uL Low [facility] ealt WBC (Bld) [#/Vol] 14.22 10*3/uL [facility] CRP [Mass/Vol]on 11-28-2023 Interpretation and review of laboratory results Abnormal [facility] CRP, Inflammationon 11-28-19 CRP [Mass/Vol] 11.6 mg/L [facility]/L [facility] D-Dimer, Quantitativeon 11-02 Fibrin D-dimer FEU (PPP) [Mass/Vol] 1.32 High [facility] Interpretation and review of laboratory results Abnormal [facility] Glucose (Bld) [Mass/Vol]on 0 11-28-2023 Glucose [Mass/Vol] 222 mg/dL High 65 - 99 mg/dL [facility] Interpretation and review of laboratory results Abnormal [facility] Glucose [Mass/Vol] 182 mg/dL High 65 - 99 mg/dL [facility] Interpretation and review of laboratory results Abnormal [facility] Glucose [Mass/Vol] 286 mg/dL High 65 - 99 mg/dL [facility] Interpretation and review of laboratory results Abnormal [facility] Glucose [Mass/Vol] 209 mg/dL High 65 - 99 mg/dL [facility] Interpretation and review of laboratory results Abnormal [facility] Glucose [Mass/Vol] 167 mg/dL High 65 - 99 mg/dL [facility] Interpretation and review of laboratory results Abnormal [facility] LDHon 11-28-2023 LDH Lactate to pyruvate reaction [Catalytic activity/Vol] 299 U/L High 100 - 250 U/L [facility] Magnesium Levelon 11-28-2023 Magnesium [Mass/Vol] 2.5 mg/dL High 1.6 - 2 .4 mg/dL [facility] Magnesium [Mass/Vol] 2.6 mg/dL High 1.6 - 2 .4 mg/dL [facility] Magnesium [Mass/Vol] 2.2 mg/dL 1.6 - 2 .4 mg/dL [facility] Magnesium [Mass/Vol]on 11-28 Interpretation and review of laboratory results Abnormal [facility] Interpretation and review of laboratory results Abnormal [facility] Interpretation and review of laboratory results Normal [facility] No Panel Informationon 11-28 Interpretation and review of laboratory results Abnormal [facility] Phosphate [Mass/Vol]on 11-28 Interpretation and review of laboratory results Normal [facility] Interpretation and review of laboratory results Abnormal [facility] Interpretation and review of laboratory results Abnormal [facility] Phosphoruson 11-28-2023 Phosphate [Mass/Vol] 3.6 mg/dL 2.3 - 3 .7 mg/dL [facility] Phosphate [Mass/Vol] 3.8 mg/dL High 2.3 - 3 .7 mg/dL [facility] Phosphate [Mass/Vol] 3.8 mg/dL High 2.3 - 3 .7 mg/dL [facility] aPTT Coag (Bld) [Time]on Interpretation and review of laboratory results Abnormal [facility] APTTOrdered By: Becky Mercado on 11-27-2023 aPTT Coag (Bld) [Time] 78 s High [facility] APTTOrdered By: Anjali Hartmann on 11-27-2023 aPTT Coag (Bld) [Time] 66 s High [facility] APTT Heparin CoverageOrdered By: Yesenia Cardona on 11-27-2023 aPTT Coag (Bld) [Time] 87 s High [facility] Interpretation and review of laboratory results Abnormal [facility] Basic metabolic 2000 panelon 11-27-2023 Anion gap [Moles/Vol] 9 mmol/L Low 10 - 2 0 mmol/L [facility] Calcium [Mass/Vol] 8.7 mg/dL 8.4 - 10. 2 mg/dL [facility] Chloride [Moles/Vol] 113 mmol/L High 98 - 10 8 mmol/L [facility] Creatinine [Mass/Vol] 2.24 mg/dL High 0.80 - 1.30 mg/dL [facility] GFR/1.73 sq M.predicted CKD-EPI (S/P/Bld) [Vol rate/Area] 29 Low - PINF [facility] Glucose [Mass/Vol] 168 mg/dL High 65 - 99 mg/dL [facility] HCO3 [Moles/Vol] 25 mmol/L 21 - 32 mmol/L [facility] Interpretation and review of laboratory results Abnormal [facility] Potassium [Moles/Vol] 3.7 mmol/L 3.5 - 5.1 mmol/L [facility] Sodium [Moles/Vol] 143 mmol/L 135 - 145 mmol/L [facility] Urea nitrogen [Mass/Vol] 37 mg/dL High 8 - 25 mg/d L [facility] Urea nitrogen/Creatinine [Mass ratio] 16.5 mg/mg 10.0 - 20.0 [facility] Anion gap [Moles/Vol] 9 mmol/L Low 10 - 2 0 mmol/L [facility] Calcium [Mass/Vol] 9.0 mg/dL 8.4 - 10. 2 mg/dL [facility] Chloride [Moles/Vol] 113 mmol/L High 98 - 10 8 mmol/L [facility] Creatinine [Mass/Vol] 2.24 mg/dL High 0.80 - 1.30 mg/dL [facility] GFR/1.73 sq M.predicted CKD-EPI (S/P/Bld) [Vol rate/Area] 29 Low - PINF [facility] Glucose [Mass/Vol] 153 mg/dL High 65 - 99 mg/dL [facility] HCO3 [Moles/Vol] 24 mmol/L 21 - 32 mmol/L [facility] Interpretation and review of laboratory results Abnormal [facility] Potassium [Moles/Vol] 4.0 mmol/L 3.5 - 5.1 mmol/L [facility] Sodium [Moles/Vol] 142 mmol/L 135 - 145 mmol/L [facility] Urea nitrogen [Mass/Vol] 39 mg/dL High 8 - 25 mg/d L [facility] Urea nitrogen/Creatinine [Mass ratio] 17.4 mg/mg 10.0 - 20.0 [facility] Anion gap [Moles/Vol] 13 mmol/L 10 - 2 0 mmol/L [facility] Calcium [Mass/Vol] 9.3 mg/dL 8.4 - 10. 2 mg/dL [facility] Chloride [Moles/Vol] 112 mmol/L High 98 - 10 8 mmol/L [facility] Creatinine [Mass/Vol] 2.26 mg/dL High 0.80 - 1.30 mg/dL [facility] GFR/1.73 sq M.predicted CKD-EPI (S/P/Bld) [Vol rate/Area] 29 Low - PINF [facility] Glucose [Mass/Vol] 114 mg/dL High 65 - 99 mg/dL [facility] HCO3 [Moles/Vol] 23 mmol/L 21 - 32 mmol/L [facility] Interpretation and review of laboratory results Abnormal [facility] Potassium [Moles/Vol] 3.7 mmol/L 3.5 - 5.1 mmol/L [facility] Sodium [Moles/Vol] 144 mmol/L 135 - 145 mmol/L [facility] Urea nitrogen [Mass/Vol] 42 mg/dL High 8 - 25 mg/d L [facility] Urea nitrogen/Creatinine [Mass ratio] 18.6 mg/mg 10.0 - 20.0 [facility] Anion gap [Moles/Vol] 13 mmol/L 10 - 2 0 mmol/L [facility] Calcium [Mass/Vol] 9.2 mg/dL 8.4 - 10. 2 mg/dL [facility] Chloride [Moles/Vol] 111 mmol/L High 98 - 10 8 mmol/L [facility] Creatinine [Mass/Vol] 2.35 mg/dL High 0.80 - 1.30 mg/dL [facility] GFR/1.73 sq M.predicted CKD-EPI (S/P/Bld) [Vol rate/Area] 27 Low - PINF [facility] Glucose [Mass/Vol] 340 mg/dL High 65 - 99 mg/dL [facility] HCO3 [Moles/Vol] 21 mmol/L 21 - 32 mmol/L [facility] Interpretation and review of laboratory results Abnormal [facility] Potassium [Moles/Vol] 3.4 mmol/L Low 3.5 - 5.1 mmol/L [facility] Sodium [Moles/Vol] 142 mmol/L 135 - 145 mmol/L [facility] Urea nitrogen [Mass/Vol] 42 mg/dL High 8 - 25 mg/d L [facility] Urea nitrogen/Creatinine [Mass ratio] 17.9 mg/mg 10.0 - 20.0 [facility] Basic metabolic 2000 panelOr dered By: Moody Hughes on 11-27-2023 Anion gap [Moles/Vol] 13 mmol/L 10 - 2 0 mmol/L [facility] Calcium [Mass/Vol] 8.9 mg/dL 8.4 - 10. 2 mg/dL [facility] Chloride [Moles/Vol] 107 mmol/L 98 - 10 8 mmol/L [facility] Creatinine [Mass/Vol] 2.24 mg/dL High 0.80 - 1.30 mg/dL [facility] GFR/1.73 sq M.predicted CKD-EPI (S/P/Bld) [Vol rate/Area] 29 Low - PINF [facility] Glucose [Mass/Vol] 523 mg/dL Critically high 65 - 99 mg/d L [facility] HCO3 [Moles/Vol] 21 mmol/L 21 - 32 mmol/L [facility] Interpretation and review of laboratory results Abnormal [facility] Potassium [Moles/Vol] 4.6 mmol/L 3.5 - 5.1 mmol/L [facility] Sodium [Moles/Vol] 136 mmol/L 135 - 145 mmol/L [facility] Urea nitrogen [Mass/Vol] 42 mg/dL High 8 - 25 mg/d L [facility] Urea nitrogen/Creatinine [Mass ratio] 18.8 mg/mg 10.0 - 20.0 [facility] Beta hydroxybutyrate [Moles/ Vol]on 11-27-2023 Interpretation and review of laboratory results Normal [facility] Interpretation and review of laboratory results Normal [facility] Interpretation and review of laboratory results Normal [facility] Interpretation and review of laboratory results Normal [facility] Beta-Hydroxybutyrateon 11-27 Beta hydroxybutyrate [Moles/Vol] mmol/L 0.0 - 0.3 mmol/L [facility] Beta hydroxybutyrate [Moles/Vol] 0.2 mmol/L 0.0 - 0.3 mmol/L [facility] Beta hydroxybutyrate [Moles/Vol] mmol/L 0.0 - 0.3 mmol/L [facility] Beta hydroxybutyrate [Moles/Vol] 0.2 mmol/L 0.0 - 0.3 mmol/L [facility] Beta hydroxybutyrate [Moles/Vol] 1.9 mmol/L High 0.0 - 0.3 mmol/L [facility] CBC Auto Differentialon 11-02 Basophils (Bld) [#/Vol] 0.04 10*3/uL [facility] Basophils/100 WBC (Bld) 0.2 % [facility] Eosinophils (Bld) [#/Vol] 0.00 10*3/uL [facility] Eosinophils/100 WBC (Bld) 0.0 % [facility] Erythrocyte distribution width (RBC) [Entitic vol] 14.0 % 11.6 - 14.8 % [facility] Hematocrit (Bld) [Volume fraction] 34.0 % Low 41.0 - 53.0 % [facility] Hemoglobin (Bld) [Mass/Vol] 11.1 g/dL Low 13.5 - 17.5 g/dL [facility] Immature granulocytes (Bld) [#/Vol] 0.11 10*3/uL [facility] Immature granulocytes/100 WBC (Bld) 0.50 % [facility] Interpretation and review of laboratory results Abnormal [facility] Lymphocytes (Bld) [#/Vol] 0.91 10*3/uL [facility] Lymphocytes/100 WBC (Bld) 3.8 % [facility] MCH (RBC) [Entitic mass] 30.9 pg 26. 0 - 34.0 pg [facility] MCHC (RBC) [Mass/Vol] 32.6 g/dL 31.0 - 37.0 g/dL [facility] MCV (RBC) [Entitic vol] 94.7 fL 80.0 - 100.0 fL [facility] Monocytes (Bld) [#/Vol] 1.21 10*3/uL High [facility] Monocytes/100 WBC (Bld) 5.1 % [facility] Neutrophils (Bld) [#/Vol] 21.42 10*3/uL High [facility] Neutrophils/100 WBC (Bld) 90.4 % [facility] Nucleated RBC (Bld) [#/Vol] 0.00 10*3/uL [facility] Nucleated RBC/100 WBC (Bld) [Ratio] 0.0 % [facility] Platelet mean volume (Bld) [Entitic vol] 11.9 fL 9.4 - 12.4 fL [facility] Platelets (Bld) [#/Vol] 220 10*3/uL [facility] RBC (Bld) [#/Vol] 3.59 10*6/uL Low [facility] WBC (Bld) [#/Vol] 23.69 10*3/uL High [facility] CRP [Mass/Vol]on 11-27-2023 Interpretation and review of laboratory results Normal [facility] CRP, Inflammationon 11-27-19 CRP [Mass/Vol] mg/L NINF - 10.0 mg/L [facility] Clostridium difficile Testin gOrdered By: Nina Martinez on 11-27-2023 C. difficile Interpretation Negative [facility] Specimen Acceptability Acceptable [facility] ESR Westergren method (Bld) [Velocity]on 11-27-2023 ESR (Bld) [Velocity] 21 mm/h High [facility] Interpretation and review of laboratory results Abnormal [facility] Glucose (Bld) [Mass/Vol]on 0 11-27-2023 Glucose [Mass/Vol] 85 mg/dL 65 - 99 mg/dL [facility] Interpretation and review of laboratory results Normal [facility] Glucose [Mass/Vol] 106 mg/dL High 65 - 99 mg/dL [facility] Interpretation and review of laboratory results Abnormal [facility] Glucose [Mass/Vol] 179 mg/dL High 65 - 99 mg/dL [facility] Interpretation and review of laboratory results Abnormal [facility] Glucose [Mass/Vol] 255 mg/dL High 65 - 99 mg/dL [facility] Interpretation and review of laboratory results Abnormal [facility] Glucose [Mass/Vol] 252 mg/dL High 65 - 99 mg/dL [facility] Interpretation and review of laboratory results Abnormal [facility] Glucose [Mass/Vol] 145 mg/dL High 65 - 99 mg/dL [facility] Interpretation and review of laboratory results Abnormal [facility] Glucose [Mass/Vol] 155 mg/dL High 65 - 99 mg/dL [facility] Interpretation and review of laboratory results Abnormal [facility] Glucose [Mass/Vol] 155 mg/dL High 65 - 99 mg/dL [facility] Interpretation and review of laboratory results Abnormal [facility] Glucose [Mass/Vol] 143 mg/dL High 65 - 99 mg/dL [facility] Interpretation and review of laboratory results Abnormal [facility] Glucose [Mass/Vol] 123 mg/dL High 65 - 99 mg/dL [facility] Interpretation and review of laboratory results Abnormal [facility] Glucose [Mass/Vol] 132 mg/dL High 65 - 99 mg/dL [facility] Interpretation and review of laboratory results Abnormal [facility] Glucose [Mass/Vol] 202 mg/dL High 65 - 99 mg/dL [facility] Interpretation and review of laboratory results Abnormal [facility] Glucose [Mass/Vol] 318 mg/dL High 65 - 99 mg/dL [facility] Interpretation and review of laboratory results Abnormal [facility] Glucose [Mass/Vol] 365 mg/dL High 65 - 99 mg/dL [facility] Interpretation and review of laboratory results Abnormal [facility] Glucose [Mass/Vol] 453 mg/dL Critically high 65 - 99 mg/d L [facility] Interpretation and review of laboratory results Abnormal [facility] Glucose [Mass/Vol] mg/dL Critically high 65 - 99 mg/d L [facility] Interpretation and review of laboratory results Abnormal [facility] Glucose [Mass/Vol] mg/dL Critically high 65 - 99 mg/d L [facility] Interpretation and review of laboratory results Abnormal [facility] Glucose [Mass/Vol] 498 mg/dL Critically high 65 - 99 mg/d L [facility] Interpretation and review of laboratory results Abnormal [facility] Green Topon 11-27-2023 Extra Tube Hold for add-ons. [facility] Comment on above: Auto resulted. [facility] HbA1c (Bld) [Mass fraction]O rdered By: Brent Carrillo on 11-27-2023 Average glucose Estimated from glycated hemoglobin (Bld) [Mass/Vol] 169 mg/dL High 68 - 114 mg/dL [facility] Interpretation and review of laboratory results Abnormal [facility] Hemoglobin [id number] By: Damaris Carrillo on 11-27-2023 HbA1c (Bld) [Mass fraction] 7.5 % High 4.0 - 5.6 % [facility] Hepatic function 2000 panelo n 11-27-2023 Albumin [Mass/Vol] 3.4 g/dL 3.2 - 5.2 g/dL [facility] ALP [Catalytic activity/Vol] 97 U/L 40 - 150 U/L [facility] ALT [Catalytic activity/Vol] 47 U/L 14 - 65 U/L [facility] AST [Catalytic activity/Vol] 74 U/L High 0-50 U/L [facility] Bilirubin [Mass/Vol] 0.7 mg/dL 0.0 - 1 .3 mg/dL [facility] Bilirubin.conjugated [Mass/Vol] 0.2 mg/dL 0.0 - 0.4 mg/dL [facility] Protein [Mass/Vol] 6.3 g/dL 6.0 - 8.0 g/dL [facility] Influenza virus A and B RNA and SARS-CoV-2 (COVID-19) N gene panel ALICE+probe (Resp)Ordered By: Esthela Albright on 11-27-2023 FLUAV RNA ALICE+probe Ql (Unsp spec) Not detected Not Detected [facility] FLUBV RNA ALICE+probe Ql (Unsp spec) Not detected Not Detected [facility] Interpretation and review of laboratory results Abnormal [facility] SARS-CoV-2 (COVID-19) RNA ALICE+probe Ql (Resp) Detected Abnormal Not Detected [facility] Lactate [Moles/Vol]on 2023 Interpretation and review of laboratory results Abnormal [facility] Interpretation and review of laboratory results Normal [facility] Lactic Acid, Plasmaon 2023 Lactate [Moles/Vol] 2.8 mmol/L High 0.6 - 2. 0 mmol/L [facility] Lactate [Moles/Vol] 2.0 mmol/L 0.6 - 2. 0 mmol/L [facility] Legionella Antigen, Urineon 11-27-2023 Interpretation and review of laboratory results Normal [facility] L. pneumophila Ag Ql (U) Negative Neg ative for Legionella antigen [facility] Lipid 1996 panelon Cholesterol [Mass/Vol] 130 mg/dL 100 - 199 mg/dL [facility] Cholesterol in HDL [Mass/Vol] 56 mg/dL 40 - 59 mg/dL [facility] Cholesterol in LDL [Mass/Vol] 61 mg/dL 10 - 130 mg/dL [facility] Cholesterol non HDL [Mass/Vol] 74 mg/dL [facility] Cholesterol.total/Cholest santos in HDL [Mass ratio] 2.3 {ratio} ratio [facility] Triglyceride [Mass/Vol] 67 mg/dL 30 - 150 mg/dL [facility] MRSA DNA Amplified Probeon 0 11-27-2023 MRSA DNA ALICE+probe Ql (Unsp spec) Negative Not Detected, MRSA NEGATIVE [facility] MRSA DNA ALICE+probe Ql (Unsp spec)on 11-27-2023 Interpretation and review of laboratory results Normal [facility] Magnesium Levelon 11-27-2023 Magnesium [Mass/Vol] 1.9 mg/dL 1.6 - 2 .4 mg/dL [facility] Magnesium [Mass/Vol] 2.2 mg/dL 1.6 - 2 .4 mg/dL [facility] Magnesium [Mass/Vol] 2.1 mg/dL 1.6 - 2 .4 mg/dL [facility] Magnesium [Mass/Vol] 2.1 mg/dL 1.6 - 2 .4 mg/dL [facility] Magnesium [Mass/Vol] 2.2 mg/dL 1.6 - 2 .4 mg/dL [facility] Magnesium [Mass/Vol]on 11-27 Interpretation and review of laboratory results Normal [facility] Interpretation and review of laboratory results Normal [facility] Interpretation and review of laboratory results Normal [facility] Interpretation and review of laboratory results Normal [facility] Interpretation and review of laboratory results Normal [facility] NT Pro BNPon 11-27-2023 Natriuretic peptide.B prohormone N-Terminal [Mass/Vol] 34987 pg/mL High 0 - 300 pg/mL [facility] Natriuretic peptide.B prohor katja N-Terminal [Mass/Vol]on 11-27-2023 Interpretation and review of laboratory results Abnormal [facility] No Panel Informationon 11-27 [facility] Interpretation and review of laboratory results Abnormal [facility] Obtain venous blood gases an d performon 11-27-2023 [facility] POC Arterial Blood Gas Panel -Pulmon 11-27-2023 Alveolar-arterial oxygen Partial pressure difference 85.4 mm Hg [facility] Base excess Calc (Bld) [Moles/Vol] -7.1000 mmol/L Low -2.0 - 2.0 [facility] Calcium.ionized [Mass/Vol] 4.7 mg/dL 4.5 - 5.3 mg/dL [facility] Carboxyhemoglobin (BldA) [Mass fraction] 1.3 NINF [facility] Chloride [Moles/Vol] 107 mmol/L 98 - 10 8 mmol/L [facility] CO2 (Bld) [Partial pressure] 31.7 mm[Hg] Low [facility] Glucose post fast [Mass/Vol] 543 mg/dL Critically high 65 - 99 mg/dL [facility] HCO3 (Bld) [Moles/Vol] 17.5 mmol/L Low 22.0 - 26.0 mmol/L [facility] Hematocrit (BldA) [Volume fraction] 37.9 % Low 41.0 - 53.0 % [facility] Hemoglobin (Bld) [Mass/Vol] 12.4 g/dL Low 13.5 - 17.5 g/dL [facility] Inhaled oxygen concentration 30 % [facility] Interpretation and review of laboratory results Abnormal [facility] Lactate [Moles/Vol] 1.7 mmol/L 0.6 - 2. 0 mmol/L [facility] Methemoglobin (BldA) [Mass fraction] % 0.0 - 2.0 % [facility] Oxygen (Bld) [Partial pressure] 84 mm[Hg] [facility] Oxyhemoglobin (BldA) [Mass fraction] 94.5 % 94.0 - 98.0 % [facility] pH (Bld) 7.35 [pH] 7.35 - 7.45 [facility] Potassium [Moles/Vol] 4.6 mmol/L 3.5 - 5.1 mmol/L [facility] Sodium [Moles/Vol] 138 mmol/L 135 - 145 mmol/L [facility] Specimen source Nom (Unsp spec) Radial, right [facility] POC Venous Blood Gas Panel-P ulmon 11-27-2023 Base excess Calc (BldV) [Moles/Vol] -8.4000 mmol/L Low -2.0 - 2.0 [facility] Calcium.ionized [Mass/Vol] 4.4 mg/dL Low 4.5 - 5.3 mg/dL [facility] Carboxyhemoglobin (BldA) [Mass fraction] 2.9 High [facility] Chloride [Moles/Vol] 108 mmol/L 98 - 10 8 mmol/L [facility] CO2 (BldV) [Partial pressure] 26.6 mm[Hg] Low [facility] Glucose post fast [Mass/Vol] 544 mg/dL Critically high 65 - 99 mg/dL [facility] HCO3 (Bld) [Moles/Vol] 15.4 mmol/L Low 24.0 - 28.0 mmol/L [facility] Hematocrit (BldA) [Volume fraction] 36.5 % Low 41.0 - 53.0 % [facility] Hemoglobin (Bld) [Mass/Vol] 11.9 g/dL Low 13.5 - 17.5 g/dL [facility] Inhaled oxygen concentration 30 % [facility] Interpretation and review of laboratory results Abnormal [facility] Lactate [Moles/Vol] 2.5 mmol/L High 0.6 - 2. 0 mmol/L [facility] Methemoglobin (BldA) [Mass fraction] % 0.0 - 2.0 % [facility] Oxygen (BldV) [Partial pressure] 140 mm[Hg] High [facility] Oxygen saturation in Venous blood 99.4 % High 40.0 - 70.0 % [facility] Oxyhemoglobin (BldA) [Mass fraction] 96.3 % No established reference range [facility] pH (BldV) 7.37 [pH] 7.32 - 7.42 [facility] Potassium [Moles/Vol] 4.0 mmol/L 3.5 - 5.1 mmol/L [facility] Sodium [Moles/Vol] 138 mmol/L 135 - 145 mmol/L [facility] Specimen source Nom (Unsp spec) Not specified [facility] Base excess Calc (BldV) [Moles/Vol] -5.8000 mmol/L Low -2.0 - 2.0 [facility] Calcium.ionized [Mass/Vol] 4.7 mg/dL 4.5 - 5.3 mg/dL [facility] Carboxyhemoglobin (BldA) [Mass fraction] 2.9 High [facility] Chloride [Moles/Vol] 107 mmol/L 98 - 10 8 mmol/L [facility] CO2 (BldV) [Partial pressure] 34.1 mm[Hg] Low [facility] Glucose post fast [Mass/Vol] 493 mg/dL Critically high 65 - 99 mg/dL [facility] HCO3 (Bld) [Moles/Vol] 19.0 mmol/L Low 24.0 - 28.0 mmol/L [facility] Hematocrit (BldA) [Volume fraction] 35.4 % Low 41.0 - 53.0 % [facility] Hemoglobin (Bld) [Mass/Vol] 11.5 g/dL Low 13.5 - 17.5 g/dL [facility] Inhaled oxygen concentration 28 % [facility] Inhaled oxygen flow rate 2 L/min [facility] Interpretation and review of laboratory results Abnormal [facility] Lactate [Moles/Vol] 1.8 mmol/L 0.6 - 2. 0 mmol/L [facility] Methemoglobin (BldA) [Mass fraction] % 0.0 - 2.0 % [facility] Oxygen (BldV) [Partial pressure] 63 mm[Hg] High [facility] Oxygen saturation in Venous blood 91.7 % High 40.0 - 70.0 % [facility] Oxyhemoglobin (BldA) [Mass fraction] 88.7 % No established reference range [facility] pH (BldV) 7.36 [pH] 7.32 - 7.42 [facility] Potassium [Moles/Vol] 4.7 mmol/L 3.5 - 5.1 mmol/L [facility] Sodium [Moles/Vol] 138 mmol/L 135 - 145 mmol/L [facility] Specimen source Nom (Unsp spec) Not specified [facility] Phosphate [Mass/Vol]on 11-27 Interpretation and review of laboratory results Normal [facility] Interpretation and review of laboratory results Abnormal [facility] Interpretation and review of laboratory results Normal [facility] Interpretation and review of laboratory results Normal [facility] Interpretation and review of laboratory results Abnormal [facility] Phosphoruson 11-27-2023 Phosphate [Mass/Vol] 2.6 mg/dL 2.3 - 3 .7 mg/dL [facility] Phosphate [Mass/Vol] 4.1 mg/dL High 2.3 - 3 .7 mg/dL [facility] Phosphate [Mass/Vol] 3.0 mg/dL 2.3 - 3 .7 mg/dL [facility] Phosphate [Mass/Vol] 2.3 mg/dL 2.3 - 3 .7 mg/dL [facility] Phosphate [Mass/Vol] 4.1 mg/dL High 2.3 - 3 .7 mg/dL [facility] Reflex Lactic Acid, Plasmaon 11-27-2023 Interpretation and review of laboratory results Normal [facility] Lactate [Moles/Vol] 2.0 mmol/L 0.6 - 2. 0 mmol/L [facility] Interpretation and review of laboratory results Abnormal [facility] Lactate [Moles/Vol] 2.8 mmol/L High 0.6 - 2. 0 mmol/L [facility] Respiratory pathogens DNA an d RNA panel ALICE+non-probe (Nph)Ordered By: Melania Freeman on 11-27-2023 Adenovirus DNA ALICE+non-probe Ql (Nph) Not detected Not Detected [facility] B. parapertussis [id number] DNA ALICE+non-probe Ql (Nph) Not detected Not Detected [facility] B. pertussis toxin promoter region ALICE+non-probe Ql (Nph) Not detected Not Detected [facility] C. pneumoniae DNA ALICE+non-probe Ql (Nph) Not detected Not Detected [facility] FLUAV RNA ALICE+non-probe Ql (Nph) Not detected Not Detected [facility] FLUBV RNA ALICE+non-probe Ql (Nph) Not detected Not Detected [facility] HCoV 229E RNA ALICE+non-probe Ql (Nph) Not detected Not Detected [facility] HCoV HKU1 RNA ALICE+non-probe Ql (Nph) Not detected Not Detected [facility] HCoV NL63 RNA ALICE+non-probe Ql (Nph) Not detected Not Detected [facility] HCoV OC43 RNA ALICE+non-probe Ql (Nph) Not detected Not Detected [facility] hMPV RNA ALICE+non-probe Ql (Nph) Not detected Not Detected [facility] Interpretation and review of laboratory results Normal [facility] M. pneumoniae DNA ALICE+non-probe Ql (Nph) Not detected Not Detected [facility] Parainfluenza virus 1 RNA ALICE+non-probe Ql (Nph) Not detected Not Detected [facility] Parainfluenza virus 2 RNA ALICE+non-probe Ql (Nph) Not detected Not Detected [facility] Parainfluenza virus 3 RNA ALICE+non-probe Ql (Nph) Not detected Not Detected [facility] Parainfluenza virus 4 RNA ALICE+non-probe Ql (Nph) Not detected Not Detected [facility] Rhinovirus+Enterovirus RNA ALICE+non-probe Ql (Nph) Not detected Not Detected [facility] RSV RNA ALICE+non-probe Ql (Nph) Not detected Not Detected [facility] SARS-CoV-2 (COVID-19) RNA ALICE+non-probe Ql (Nph) Not detected Not Detected [facility] S. pneumoniae Urine AntigenO rdered By: Maxine Hill on 11-27-2023 Interpretation and review of laboratory results Normal [facility] S. pneumoniae Ag Ql (U) Negative Pres umptive Negative for Pneumococcal pneumoniae [facility] TSH DL <= 0.005 mIU/L Qnon 0 11-27-2023 Interpretation and review of laboratory results Normal [facility] TSH Qn 0.35 m[IU]/L [facility] Tropinin I.cardiac panel Hig h sensitivity methodon 11-27-2023 Interpretation and review of laboratory results Abnormal [facility] Less than 99th percentile of normal range [...] performed using a different testing methodology at [facility] than at other [facility]. Direct result comparisons should only be made within the same method. [facility] Troponin I, High Sensitivity on 11-27-2023 Tropinin I.cardiac panel High sensitivity method 6445 ng/L Critically high 0 - 20 ng/L [facility] Comment on above: Previous result zay boss on 11/26/2023 2158 on specimen/case [id number] called with component [facility] for procedure Troponin I, High Sensitivity with value 2,361 ng/L. Troponin x 2 (Now and Repeat in 3 hours)Ordered By: Stephanie Carlton on 11-27-2023 Delta % Troponin I -6 % <20% of Baseline Troponin [facility] Inter Troponin I Delta Change Probable non-acute cardiac injury or late presentation of acute injury. [facility] Interpretation and review of laboratory results Abnormal [facility] Troponin I 9349 ng/L Critically high NINF - 59 ng/L [facility] Troponin x 2 (Now and Repeat in 3 hours)on 11-27-2023 Interpretation and review of laboratory results Abnormal [facility] Troponin I 9973 ng/L Critically high NINF - 59 ng/L [facility] Troponin I Interpretation Possible acute cardiac injury. [facility] XR Chest PA and Abdomen APon 11-27-2023 GE RIS GE RIS [facility] Radiology Study observation (narrative) [facility] XR Chest PA and Abdomen APOr dered By: Malika Painting on 11-27-2023 [facility] Work Phone: aPTT Coag (Bld) [Time]Ordere d By: Becky Mercado on 11-27-2023 Interpretation and review of laboratory results Abnormal [facility] aPTT Coag (Bld) [Time]Orderariela d By: Anjali Hartmann on 11-27-2023 Interpretation and review of laboratory results Abnormal [facility] CBC W Auto Differential pane l (Bld)on 11-26-2023 Basophils (Bld) [#/Vol] 0.05 10*3/uL [facility] Basophils/100 WBC (Bld) 0.2 % 0.0 - 2.0 % [facility] Eosinophils (Bld) [#/Vol] 0.00 10*3/uL [facility] Eosinophils/100 WBC (Bld) 0.0 % 0.0 - 6.0 % [facility] Erythrocyte distribution width (RBC) [Ratio] 13.8 % 11.5 - 14.5 % [facility] Hematocrit (Bld) [Volume fraction] 38.0 % Low 41.0 - 52.0 % [facility] Hemoglobin (Bld) [Mass/Vol] 12.2 g/dL Low 13.5 - 17.5 g/dL [facility] Immature granulocytes (Bld) [#/Vol] 0.12 10*3/uL [facility] Immature granulocytes/100 WBC (Bld) 0.6 % 0.0 - 0.9 % [facility] Comment on above: Immature Granulocyte Count (IG) includes promyelocytes, myelocytes and metamyelocytes but does not include bands. Percent differential counts (%) should be interpreted in the context of the absolute cell counts (cells/UL). Interpretation and review of laboratory results Abnormal [facility] Lymphocytes (Bld) [#/Vol] 2.01 10*3/uL [facility] Lymphocytes/100 WBC (Bld) 9.8 % 13.0 - 44. 0 % [facility] MCH (RBC) [Entitic mass] 30.5 pg 26. 0 - 34.0 pg [facility] MCHC (RBC) [Mass/Vol] 32.1 g/dL 32.0 - 36.0 g/dL [facility] MCV (RBC) [Entitic vol] 95 fL 80 - 100 fL [facility] Monocytes (Bld) [#/Vol] 0.75 10*3/uL [facility] Monocytes/100 WBC (Bld) 3.7 % 2.0 - 10.0 % [facility] Neutrophils (Bld) [#/Vol] 17.49 10*3/uL High [facility] Comment on above: Percent differential counts (%) should be interpreted in the context of the absolute cell counts (cells/uL). Neutrophils/100 WBC (Bld) 85.7 % 40.0 - 80. 0 % [facility] Nucleated RBC/100 WBC (Bld) [Ratio] 0.0 % [facility] Platelets (Bld) [#/Vol] 281 10*3/uL [facility] RBC (Bld) [#/Vol] 4.00 10*6/uL Low Un[facility] WBC (Bld) [#/Vol] 20.4 10*3/uL High [facility] Comprehensive metabolic 2000 panelon 11-26-2023 Albumin BCP dye [Mass/Vol] 4.2 g/dL 3.4 - 5.0 g/dL [facility] ALP [Catalytic activity/Vol] 101 U/L 33 - 136 U/L [facility] ALT With P-5'-P [Catalytic activity/Vol] 38 U/L 10 - 52 U/L [facility] Comment on above: Patients treated wit h Sulfasalazine may generate falsely decreased results for ALT. Anion gap [Moles/Vol] 17 mmol/L 10 - 2 0 mmol/L [facility] AST With P-5'-P [Catalytic activity/Vol] 53 U/L High 9 - 39 U/L [facility] Bilirubin [Mass/Vol] 0.6 mg/dL 0.0 - 1 .2 mg/dL [facility] Calcium [Mass/Vol] 9.2 mg/dL 8.6 - 10. 3 mg/dL [facility] Chloride [Moles/Vol] 106 mmol/L 98 - 10 7 mmol/L [facility] CO2 [Moles/Vol] 17 mmol/L Low 21 - 32 mmol/L [facility] Creatinine [Mass/Vol] 1.96 mg/dL High 0.50 - 1.30 mg/dL [facility] GFR/1.73 sq M.predicted among non-blacks MDRD (S/P/Bld) [Vol rate/Area] 34 mL/min/{1.73_m2} Low - PINF Un [facility] Comment on above: Calculations of albin mated GFR are performed using the 2020 CKD-EPI Study Refit equation without the race variable for the IDMS-Traceable creatinine methods. https://jasn.asnjournals.org/content//ASN.20 21147541 Glucose [Mass/Vol] 492 mg/dL Critically high 74 - 99 mg/d L [facility] Comment on above: Confirmed by repeat analysis Interpretation and review of laboratory results Abnormal [facility] Potassium [Moles/Vol] 4.5 mmol/L 3.5 - 5.3 mmol/L [facility] Protein [Mass/Vol] 6.7 g/dL 6.4 - 8.2 g/dL [facility] Sodium [Moles/Vol] 135 mmol/L Low 136 - 145 mmol/L [facility] Urea nitrogen [Mass/Vol] 35 mg/dL High 6 - 23 mg/d L [facility] Critical Careon 11-26-2023 Ger Bansal DO 11/27/2023 [...] discussed with: accepting provider at another facility [facility] Work Phone: [facility] Work Phone: Lactateon 11-26-2023 Lactate [Moles/Vol] 3.2 mmol/L High 0.4 - 2. 0 mmol/L [facility] Lactate [Moles/Vol] 3.8 mmol/L High 0.4 - 2. 0 mmol/L [facility] Lactate [Moles/Vol]on 2023 Interpretation and review of laboratory results Abnormal [facility] Venipuncture immediately after or during the administration of Metamizole may lead to falsely low results. Testing should be performed immediately prior to Metamizole dosing. [facility] Interpretation and review of laboratory results Abnormal [facility] Venipuncture immediately after or during the administration of Metamizole may lead to falsely low results. Testing should be performed immediately prior to Metamizole dosing. [facility] MRSA DNA ALICE+probe Ql (Nose) on 11-26-2023 Interpretation and review of laboratory results Normal [facility] MRSA DNA ALICE+probe Ql (Unsp spec) Not detected Not Detected [facility] This assay is an FDA-approved in vitro [...] patients less than two years of age. [facility] Magnesiumon 11-26-2023 Magnesium [Mass/Vol] 2.20 mg/dL 1.60 - 2.40 mg/dL [facility] Magnesium [Mass/Vol]on 11-26 Interpretation and review of laboratory results Normal [facility] Natriuretic peptide B [Mass/ Vol]on 11-26-2023 Interpretation and review of laboratory results Abnormal [facility] Natriuretic peptide B (Bld) [Mass/Vol] 902 pg/mL High 0 - 99 pg/mL [facility] <100 pg/mL - Heart failure unlikely 100-299 pg/mL - Intermediate probability of acute heart failure exacerbation. Correlate with clinical context and patient history. >=300 pg/mL - Heart Failure likely. Correlate with clinical context and patient history. BNP testing is performed using different testing methodology at [facility] than at other [facility]. Direct result comparisons should only be made within the same method. [facility] No Panel Informationon 11-26 [facility] Interpretation and review of laboratory results Normal [facility] PT Coag (PPP) [Time]on 11-26 INR Coag (PPP) [Relative time] 1.1 {INR} 0.9 - 1.1 [facility] Protime-INRon 11-26-2023 PT Coag (PPP) [Time] 12.3 s [facility] Tropinin I.cardiac panel Hig h sensitivity methodon 11-26-2023 Interpretation and review of laboratory results Abnormal [facility] Less than 99th percentile of normal range [...] performed using a different testing methodology at [facility] than at other [facility]. Direct result comparisons should only be made within the same method. [facility] Interpretation and review of laboratory results Abnormal [facility] Less than 99th percentile of normal range [...] performed using a different testing methodology at [facility] than at other [facility]. Direct result comparisons should only be made within the same method. [facility] Troponin I, High Sensitivity on 11-26-2023 Tropinin I.cardiac panel High sensitivity method 3473 ng/L Critically high 0 - 20 ng/L [facility] Comment on above: Previous result veri fied on 11/26/2023 2158 on specimen/case [id number] called with component [facility] for procedure Troponin I, High Sensitivity with value 2,361 ng/L. Tropinin I.cardiac panel High sensitivity method 2361 ng/L Critically high 0 - 20 ng/L [facility] XR Chest Single viewon 11-26 Pulmonary vascular congestive change and edema and small bilateral pleural effusions. There is asymmetric opacity in the right lower lung concerning for superimposed pneumonia. 10 mm nodular opacity at the left lung base; follow-up dedicated CT chest is recommended to exclude underlying pulmonary nodule. MACRO: None Signed by: Ghassan Tovar 11/26/2023 10:02 PM Dictation workstation: [id number] [facility] Interpreted By: Ghassan Tovar, STUDY: XR CHEST 1 VIEW; 11/26/2023 9:31 pm INDICATION: Signs/Symptoms:dyspn ea. COMPARISON: 10/13/2023 ACCESSION NUMBER(S): [id number] ORDERING CLINICIAN: GER BANSAL FINDINGS: The cardiac silhouette is stable in size. There is pulmonary vascular congestive change and edema. Small bilateral pleural effusions. There is 10 mm nodular opacity at the left lung base. No pneumothorax [facility] Ghassan Tovar MD - 11/26/2023 Interpreted By: Ghassan Tovar, STUDY: XR CHEST 1 VIEW; 11/26/2023 9:31 pm INDICATION: Signs/Symptoms:dyspn ea. COMPARISON: 10/13/2023 ACCESSION NUMBER(S): [id number] ORDERING CLINICIAN: GER BANSAL FINDINGS: The cardiac [...] Ghassan Tovar 11/26/2023 10:02 PM Dictation workstation: [id number] [facility] Work Phone: Radiology Study observation (narrative) [facility] Work Phone: XR Chest Single viewOrdered By: Ghassan Tovar on 11-26-2023 [facility] Work Phone: aPTTon 11-26-2023 aPTT Coag (PPP) [Time] [address] [facility] aPTT Coag (PPP) [Time]on The APTT is no longer used for monitoring Unfractionated Heparin Therapy. For monitoring Heparin Therapy, use the Heparin Assay. [facility] Absolute lymphocyte countOrd ered By: Ryley Jeter on 11-25-2023 Lymphocytes Auto (Unsp spec) [#/Vol] 1.79 10*3/uL 0.83-4.51 [facility] Automated lymphocyte count a s percentage of total leukocytesOrdered By: Ryley Jeter on 11-25-2023 Lymphocytes/100 WBC Auto (Unsp spec) 19.7 % 19-41 [facility] Basophil percentageOrdered B y: Ryley Jeter on 11-25-2023 Basophils/100 WBC (Bld) 1.0 % 0-1 [facility] Bilirubin [Mass/Vol] 0.50 mg/dL 0.20-1.00 [facility] Comment on above: For patients on eltr ombopag therapy, use of Dimension [place] TBIL is not recommended. Chloride [Moles/Vol] 113 mmol/L 98-107 [facility] Eosinophils/100 WBC (Bld) 2.3 % 0-5 [facility] Glucose [Mass/Vol] 130 mg/dL 74-106 [facility] Comment on above: Fasting Glucose resu lt greater than or equal to 126 mg/dL suggests DIABETES MELLITUS per A.D.A. criteria. Hemoglobin (Bld) [Mass/Vol] 12.2 g/dL 13.0-16.5 [facility] Monocytes/100 WBC (Bld) 7.5 % 0-10 [facility] Neutrophils (Bld) [#/Vol] 6.3 10*3/uL 2.0-7.7 [facility] Neutrophils/100 WBC (Bld) 69.2 % 47-70 [facility] Potassium [Moles/Vol] 4.3 mmol/L 3.5-5.1 [facility] Protein [Mass/Vol] 7.1 g/dL 6.4-8.2 [facility] Sodium [Moles/Vol] 142 mmol/L 136-145 [facility] WBC (Bld) [#/Vol] 9.1 10*3/uL 4.4-11.0 [facility] Determination of erythrocyte mean corpuscular volume (MCV)Ordered By: Ryley Jeter on 11-25-2023 MCV (RBC) [Entitic vol] 93.5 fL 80-94 [facility] Erythrocyte distribution wid th ratioOrdered By: Ryley Jeter on 11-25-2023 Erythrocyte distribution width (RBC) [Ratio] 14.1 % 11.6-14.6 [facility] Erythrocyte distribution wid th standard deviationOrdered By: Ryley Jeter on 11-25-2023 Erythrocyte distribution width (RBC) [Entitic vol] 47.9 fL 35.1-43.9 [facility] Hematocrit Auto (Bld) [Volum e fraction]Ordered By: Ryley Jeter on 11-25-2023 Hematocrit (Bld) [Volume fraction] 37.7 % 40-54 [facility] Immature granulocytes/100 WB C Auto (Bld)Ordered By: Ryley Jeter on 11-25-2023 Immature granulocytes/100 WBC (Bld) 0.300 % 0.0-0.9 [facility] Comment on above: IG% - Immature Granu locytes (promyelocytes, myelocytes and metamyelocytes) > 1% indicates that a LEFT SHIFT is Present. Laboratory - Chemistry and C hemistry - challengeOrdered By: Ryley Jeter on 11-25-2023 Albumin/Globulin [Mass ratio] 1.0 {ratio} 0.9-2.4 [facility] ALP [Catalytic activity/Vol] 98 U/L 45-117 [facility] ALT [Catalytic activity/Vol] 25 U/L 16-61 [facility] CO2 [Moles/Vol] 25.0 mmol/L 21.0-32.0 [facility] Globulin (S) [Mass/Vol] 3.5 g/dL 2.2-4.2 [facility] Urea nitrogen/Creatinine [Mass ratio] 13.5 mg/mg 10-20 [facility] Laboratory - Hematology and Cell countsOrdered By: Ryley Jeter on 11-25-2023 MCH (RBC) [Entitic mass] 30.3 pg 27.0-32.0 [facility] MCHC (RBC) [Mass/Vol] 32.4 g/dL 32-36 [facility] Nucleated RBC/100 WBC (Bld) [Ratio] 0 % 0-5 [facility] Platelets (Bld) [#/Vol] 239 10*3/uL 150-450 [facility] No Panel InformationOrdered By: Ryley Jeter on 11-25-2023 Estimated GFR (MDRD) Amer 55 mL/min >60 [facility] Comment on above: GFR Calc Estimated GFR (MDRD) Non-Af Amer 46 mL/min >60 [facility] Comment on above: Non- GFR Calc Platelet mean volume [place]-Ec ker (Bld) [Entitic vol]Ordered By: Ryley Jeter on 11-25-2023 Platelet mean volume (Bld) [Entitic vol] 11.3 fL 6.2-12.0 [facility] RBC Auto (Bld) [#/Vol]Ordere d By: Ryley Jeter on 11-25-2023 RBC (Bld) [#/Vol] 4.03 10*6/uL 4.6-6.2 [facility] Serum or plasma calcium nikkie urement (mass/volume)Ordered By: Ryley Jeter on 11-25-2023 Calcium [Mass/Vol] 9.5 mg/dL 8.5-10.1 [facility] Serum or plasma creatinine m easurement (mass/volume)Ordered By: Ryley Jeter on 11-25-2023 Creatinine [Mass/Vol] 1.56 mg/dL 0.70-1.30 [facility] Comment on above: The validity of the calculated GFR & GFRAA in patients over 70 years has not been determined. Clinical correlation is essential. Serum or plasma thyroid stim ulating hormone (TSH) measurement (units/volume)Ordered By: [facility] on 11-25-2023 TSH Qn 0.80 uIU/mL 0.358-3.74 [facility] Serum or plasma urea nitroge n measurement (mass/volume)Ordered By: Ryley Steffany on 11-25-2023 Urea nitrogen [Mass/Vol] 21 mg/dL 7-18 [facility] Thin prep Papanicolaou smear with manual screeningOrdered By: [facility] on 11-25-2023 Thin prep Papanicolaou smear with manual screening 3.6 g/dL 3.2-5.0 [facility] Thin prep Papanicolaou smear with manual screening 23 U/L 15-37 [facility] Thin prep Papanicolaou smear with manual screening 4 5-15 [facility] Basophil percentageOrdered B y: Jana Ferguson on 10-22-2023 Chloride [Moles/Vol] 111 mmol/L 98-107 [facility] Glucose [Mass/Vol] 120 mg/dL 74-106 [facility] Comment on above: Fasting Glucose resu lt from 100 to 125 mg/dL suggests IMPAIRED HOMEOSTASIS per A.D.A. criteria. Potassium [Moles/Vol] 4.7 mmol/L 3.5-5.1 [facility] Sodium [Moles/Vol] 140 mmol/L 136-145 [facility] WBC (Bld) [#/Vol] 9.1 10*3/uL 4.4-11.0 [facility] Blood erythrocytes count (nu mber/volume)Ordered By: Jana Ferguson on 10-22-2023 RBC (Bld) [#/Vol] 4.16 10*6/uL 4.6-6.2 [facility] Blood hemoglobin measurement (mass/volume)Ordered By: Jana Ferguson on 10-22-2023 Hemoglobin (Bld) [Mass/Vol] 12.3 g/dL 13.0-16.5 [facility] Blood platelet mean volumeOr dered By: Jana Ferguson on 10-22-2023 Platelet mean volume (Bld) [Entitic vol] 11.6 fL 6.2-12.0 [facility] Determination of erythrocyte mean corpuscular volume (MCV)Ordered By: Jana Ferguson on 10-22-2023 MCV (RBC) [Entitic vol] 93.0 fL 80-94 [facility] Hematocrit Auto (Bld) [Volum e fraction]Ordered By: Jana Ferguson on 10-22-2023 Hematocrit (Bld) [Volume fraction] 38.7 % 40-54 [facility] Laboratory - Chemistry and C hemistry - challengeOrdered By: Jana Ferguson on 10-22-2023 CO2 [Moles/Vol] 27.0 mmol/L 21.0-32.0 [facility] Urea nitrogen/Creatinine [Mass ratio] 20.9 mg/mg 10-20 [facility] Laboratory - Hematology and Cell countsOrdered By: Jana Ferguson on 10-22-2023 Erythrocyte distribution width (RBC) [Entitic vol] 44.3 fL 35.1-43.9 [facility] Erythrocyte distribution width (RBC) [Ratio] 13.0 % 11.6-14.6 [facility] MCH (RBC) [Entitic mass] 29.6 pg 27.0-32.0 [facility] MCHC Auto (RBC) [Mass/Vol]Or dered By: Jana Ferguson on 10-22-2023 MCHC (RBC) [Mass/Vol] 31.8 g/dL 32-36 [facility] No Panel InformationOrdered By: Jana Ferguson on 10-22-2023 Estimated GFR (MDRD) Amer 40 mL/min >60 [facility] Comment on above: GFR Calc Estimated GFR (MDRD) Non-Af Amer 33 mL/min >60 [facility] Comment on above: Non- GFR Calc Platelets bldOrdered By: Jadyn Ferguson on 10-22-2023 Platelets (Bld) [#/Vol] 304 10*3/uL 150-450 [facility] Serum or plasma calcium nikkie urement (mass/volume)Ordered By: Jana Ferguson on 10-22-2023 Calcium [Mass/Vol] 9.1 mg/dL 8.5-10.1 [facility] Serum or plasma creatinine m easurement (mass/volume)Ordered By: Jana Ferguson on 10-22-2023 Creatinine [Mass/Vol] 2.06 mg/dL 0.70-1.30 [facility] Comment on above: The validity of the calculated GFR & GFRAA in patients over 70 years has not been determined. Clinical correlation is essential. Serum or plasma urea nitroge n measurement (mass/volume)Ordered By: Jana Ferguson on 10-22-2023 Urea nitrogen [Mass/Vol] 43 mg/dL 7-18 [facility] Thin prep Papanicolaou smear with manual screeningOrdered By: Jana Ferguson on 10-22-2023 Thin prep Papanicolaou smear with manual screening 2 5-15 [facility] Basic metabolic 2000 panelon 10-13-2023 Anion gap [Moles/Vol] 17 mmol/L 10 - 2 0 mmol/L [facility] Calcium [Mass/Vol] 8.3 mg/dL Low 8.6 - 10. 3 mg/dL [facility] Chloride [Moles/Vol] 102 mmol/L 98 - 10 7 mmol/L [facility] CO2 [Moles/Vol] 22 mmol/L 21 - 32 mmol/L [facility] Creatinine [Mass/Vol] 2.30 mg/dL High 0.50 - 1.30 mg/dL [facility] GFR/1.73 sq M.predicted MDRD (S/P/Bld) [Vol rate/Area] 28 mL/min/{1.73_m2} Low - PINF [facility] Comment on above: Calculations of albin mated GFR are performed using the 2020 CKD-EPI Study Refit equation without the race variable for the IDMS-Traceable creatinine methods. https://jasn.asnjournals.org/content//ASN.20 83797005 Glucose [Mass/Vol] 327 mg/dL High 74 - 99 mg/dL [facility] Interpretation and review of laboratory results Abnormal [facility] Potassium [Moles/Vol] 4.9 mmol/L 3.5 - 5.3 mmol/L [facility] Sodium [Moles/Vol] 136 mmol/L 136 - 145 mmol/L [facility] Urea nitrogen [Mass/Vol] 57 mg/dL High 6 - 23 mg/d L [facility] CBC W Auto Differential pane l (Bld)on 10-13-2023 Basophils (Bld) [#/Vol] 0.02 10*3/uL [facility] Basophils/100 WBC (Bld) 0.1 % 0.0 - 2.0 % [facility] Eosinophils (Bld) [#/Vol] 0.00 10*3/uL [facility] Eosinophils/100 WBC (Bld) 0.0 % 0.0 - 6.0 % [facility] Erythrocyte distribution width (RBC) [Ratio] 13.2 % 11.5 - 14.5 % [facility] Hematocrit (Bld) [Volume fraction] 36.4 % Low 41.0 - 52.0 % [facility] Hemoglobin (Bld) [Mass/Vol] 12.4 g/dL Low 13.5 - 17.5 g/dL [facility] Immature granulocytes (Bld) [#/Vol] 0.11 10*3/uL [facility] Immature granulocytes/100 WBC (Bld) 0.6 % 0.0 - 0.9 % [facility] Comment on above: Immature Granulocyte Count (IG) includes promyelocytes, myelocytes and metamyelocytes but does not include bands. Percent differential counts (%) should be interpreted in the context of the absolute cell counts (cells/UL). Interpretation and review of laboratory results Abnormal [facility] Lymphocytes (Bld) [#/Vol] 1.30 10*3/uL [facility] Lymphocytes/100 WBC (Bld) 7.3 % 13.0 - 44. 0 % [facility] MCH (RBC) [Entitic mass] 31.0 pg 26. 0 - 34.0 pg [facility] MCHC (RBC) [Mass/Vol] 34.1 g/dL 32.0 - 36.0 g/dL [facility] MCV (RBC) [Entitic vol] 91 fL 80 - 100 fL [facility] Monocytes (Bld) [#/Vol] 1.15 10*3/uL [facility] Monocytes/100 WBC (Bld) 6.5 % 2.0 - 10.0 % [facility] Neutrophils (Bld) [#/Vol] 15.21 10*3/uL [facility] Comment on above: Percent differential counts (%) should be interpreted in the context of the absolute cell counts (cells/uL). Neutrophils/100 WBC (Bld) 85.5 % 40.0 - 80. 0 % [facility] Nucleated RBC/100 WBC (Bld) [Ratio] 0.0 % [facility] Platelets (Bld) [#/Vol] 153 10*3/uL [facility] RBC (Bld) [#/Vol] 4.00 10*6/uL Low Unive [facility] WBC (Bld) [#/Vol] 17.8 10*3/uL High Un[facility] Glucose Test strip manual (B ld) [Mass/Vol]on 10-13-2023 Glucose [Mass/Vol] 329 mg/dL High 74 - 99 mg/dL [facility] Interpretation and review of laboratory results Abnormal [facility] Glucose [Mass/Vol] 304 mg/dL High 74 - 99 mg/dL [facility] Interpretation and review of laboratory results Abnormal [facility] Glucose [Mass/Vol] 305 mg/dL High 74 - 99 mg/dL [facility] Interpretation and review of laboratory results Abnormal [facility] XR Chest Single viewon 10-13 Right upper lobe airspace consolidation, concerning for pneumonia. Clinical correlation and continued follow-up until clearing is recommended. MACRO: None. Signed by: Jaret Walker 10/13/2023 11:21 AM Dictation workstation: [id number] Interpreted By: Jaret Walker, STUDY: XR CHEST 1 VIEW 10/13/2023 8:31 am INDICATION: Signs/Symptoms:Acute dyspnea COMPARISON: 10/11/2023 ACCESSION NUMBER(S): [id number] ORDERING CLINICIAN: VERA RIVERA TECHNIQUE: A single [...] INDICATION: Signs/Symptoms:Acute dyspnea COMPARISON: 10/11/2023 ACCESSION NUMBER(S): [id number] ORDERING CLINICIAN: VERA RIVERA TECHNIQUE: A single [...] Jaret Walker 10/13/2023 11:21 AM Dictation workstation: [id number] [facility] Work Phone: Radiology Study observation (narrative) [facility] Work Phone: XR Chest Single viewOrdered By: Jaret Walker on 10-13-2023 [facility] Work Phone: Basic metabolic 2000 panelon 10-12-2023 Anion gap [Moles/Vol] 13 mmol/L 10 - 2 0 mmol/L [facility] Calcium [Mass/Vol] 8.2 mg/dL Low 8.6 - 10. 3 mg/dL [facility] Chloride [Moles/Vol] 103 mmol/L 98 - 10 7 mmol/L [facility] CO2 [Moles/Vol] 23 mmol/L 21 - 32 mmol/L [facility] Creatinine [Mass/Vol] 2.11 mg/dL High 0.50 - 1.30 mg/dL [facility] GFR/1.73 sq M.predicted MDRD (S/P/Bld) [Vol rate/Area] 31 mL/min/{1.73_m2} Low - PINF [facility] Comment on above: Calculations of albin mated GFR are performed using the 2020 CKD-EPI Study Refit equation without the race variable for the IDMS-Traceable creatinine methods. https://jasn.asnjournals.org/content///ASN.20 16135180 Glucose [Mass/Vol] 214 mg/dL High 74 - 99 mg/dL [facility] Interpretation and review of laboratory results Abnormal [facility] Potassium [Moles/Vol] 4.4 mmol/L 3.5 - 5.3 mmol/L [facility] Sodium [Moles/Vol] 135 mmol/L Low 136 - 145 mmol/L [facility] Urea nitrogen [Mass/Vol] 44 mg/dL High 6 - 23 mg/d L [facility] CBC W Auto Differential pane l (Bld)on 10-12-2023 Basophils (Bld) [#/Vol] 0.03 10*3/uL [facility] Basophils/100 WBC (Bld) 0.1 % 0.0 - 2.0 % [facility] Eosinophils (Bld) [#/Vol] 0.00 10*3/uL [facility] Eosinophils/100 WBC (Bld) 0.0 % 0.0 - 6.0 % [facility] Erythrocyte distribution width (RBC) [Ratio] 13.0 % 11.5 - 14.5 % [facility] Hematocrit (Bld) [Volume fraction] 34.5 % Low 41.0 - 52.0 % [facility] Hemoglobin (Bld) [Mass/Vol] 11.8 g/dL Low 13.5 - 17.5 g/dL [facility] Immature granulocytes (Bld) [#/Vol] 0.09 10*3/uL [facility] Immature granulocytes/100 WBC (Bld) 0.4 % 0.0 - 0.9 % [facility] Comment on above: Immature Granulocyte Count (IG) includes promyelocytes, myelocytes and metamyelocytes but does not include bands. Percent differential counts (%) should be interpreted in the context of the absolute cell counts (cells/UL). Interpretation and review of laboratory results Abnormal [facility] Lymphocytes (Bld) [#/Vol] 1.79 10*3/uL [facility] Lymphocytes/100 WBC (Bld) 8.6 % 13.0 - 44. 0 % [facility] MCH (RBC) [Entitic mass] 30.8 pg 26. 0 - 34.0 pg [facility] MCHC (RBC) [Mass/Vol] 34.2 g/dL 32.0 - 36.0 g/dL [facility] MCV (RBC) [Entitic vol] 90 fL 80 - 100 fL [facility] Monocytes (Bld) [#/Vol] 1.55 10*3/uL High [facility] Monocytes/100 WBC (Bld) 7.5 % 2.0 - 10.0 % [facility] Neutrophils (Bld) [#/Vol] 17.32 10*3/uL High [facility] Comment on above: Percent differential counts (%) should be interpreted in the context of the absolute cell counts (cells/uL). Neutrophils/100 WBC (Bld) 83.4 % 40.0 - 80. 0 % [facility] Nucleated RBC/100 WBC (Bld) [Ratio] 0.0 % [facility] Platelets (Bld) [#/Vol] 152 10*3/uL [facility] RBC (Bld) [#/Vol] 3.83 10*6/uL Low [facility] WBC (Bld) [#/Vol] 20.8 10*3/uL High [facility] Glucose Test strip manual (B ld) [Mass/Vol]on 10-12-2023 Glucose [Mass/Vol] 240 mg/dL High 74 - 99 mg/dL [facility] Interpretation and review of laboratory results Abnormal [facility] Glucose [Mass/Vol] 166 mg/dL High 74 - 99 mg/dL [facility] Interpretation and review of laboratory results Abnormal [facility] Glucose [Mass/Vol] 186 mg/dL High 74 - 99 mg/dL [facility] Interpretation and review of laboratory results Abnormal [facility] Glucose [Mass/Vol] 218 mg/dL High 74 - 99 mg/dL [facility] Interpretation and review of laboratory results Abnormal [facility] Glucose [Mass/Vol] 127 mg/dL High 74 - 99 mg/dL [facility] Interpretation and review of laboratory results Abnormal [facility] No Panel Informationon 10-12 Extra Tube Hold for add-ons. [facility] Comment on above: Auto resulted. [facility] CBC W Auto Differential pane l (Bld)on 10-11-2023 Basophils (Bld) [#/Vol] 0.07 10*3/uL [facility] Basophils/100 WBC (Bld) 0.7 % 0.0 - 2.0 % [facility] Eosinophils (Bld) [#/Vol] 0.09 10*3/uL [facility] Eosinophils/100 WBC (Bld) 0.9 % 0.0 - 6.0 % [facility] Erythrocyte distribution width (RBC) [Ratio] 13.0 % 11.5 - 14.5 % [facility] Hematocrit (Bld) [Volume fraction] 36.7 % Low 41.0 - 52.0 % [facility] Hemoglobin (Bld) [Mass/Vol] 12.0 g/dL Low 13.5 - 17.5 g/dL [facility] Immature granulocytes (Bld) [#/Vol] 0.03 10*3/uL [facility] Immature granulocytes/100 WBC (Bld) 0.3 % 0.0 - 0.9 % [facility] Comment on above: Immature Granulocyte Count (IG) includes promyelocytes, myelocytes and metamyelocytes but does not include bands. Percent differential counts (%) should be interpreted in the context of the absolute cell counts (cells/UL). Interpretation and review of laboratory results Abnormal [facility] Lymphocytes (Bld) [#/Vol] 1.34 10*3/uL [facility] Lymphocytes/100 WBC (Bld) 12.9 % 13.0 - 44. 0 % [facility] MCH (RBC) [Entitic mass] 30.4 pg 26. 0 - 34.0 pg [facility] MCHC (RBC) [Mass/Vol] 32.7 g/dL 32.0 - 36.0 g/dL [facility] MCV (RBC) [Entitic vol] 93 fL 80 - 100 fL [facility] Monocytes (Bld) [#/Vol] 1.25 10*3/uL High [facility] Monocytes/100 WBC (Bld) 12.0 % 2.0 - 10.0 % [facility] Neutrophils (Bld) [#/Vol] 7.64 10*3/uL High [facility] Comment on above: Percent differential counts (%) should be interpreted in the context of the absolute cell counts (cells/uL). Neutrophils/100 WBC (Bld) 73.2 % 40.0 - 80. 0 % [facility] Nucleated RBC/100 WBC (Bld) [Ratio] 0.0 % [facility] Platelets (Bld) [#/Vol] 158 10*3/uL [facility] RBC (Bld) [#/Vol] 3.95 10*6/uL Low [facility] WBC (Bld) [#/Vol] 10.4 10*3/uL [facility] Comprehensive metabolic 2000 panelon 10-11-2023 Albumin BCP dye [Mass/Vol] 3.8 g/dL 3.4 - 5.0 g/dL [facility] ALP [Catalytic activity/Vol] 83 U/L 33 - 136 U/L [facility] ALT With P-5'-P [Catalytic activity/Vol] 13 U/L 10 - 52 U/L [facility] Comment on above: Patients treated wit h Sulfasalazine may generate falsely decreased results for ALT. Anion gap [Moles/Vol] 15 mmol/L 10 - 2 0 mmol/L [facility] AST With P-5'-P [Catalytic activity/Vol] 18 U/L 9 - 39 U/L [facility] Bilirubin [Mass/Vol] 0.4 mg/dL 0.0 - 1 .2 mg/dL [facility] Calcium [Mass/Vol] 8.5 mg/dL Low 8.6 - 10. 3 mg/dL [facility] Chloride [Moles/Vol] 103 mmol/L 98 - 10 7 mmol/L [facility] CO2 [Moles/Vol] 22 mmol/L 21 - 32 mmol/L [facility] Creatinine [Mass/Vol] 1.83 mg/dL High 0.50 - 1.30 mg/dL [facility] GFR/1.73 sq M.predicted MDRD (S/P/Bld) [Vol rate/Area] 37 mL/min/{1.73_m2} Low - PINF [facility] Comment on above: Calculations of albin mated GFR are performed using the 2020 CKD-EPI Study Refit equation without the race variable for the IDMS-Traceable creatinine methods. https://jasn.asnjournals.org/content//ASN.20 16263064 Glucose [Mass/Vol] 344 mg/dL High 74 - 99 mg/dL [facility] Interpretation and review of laboratory results Abnormal [facility] Potassium [Moles/Vol] 4.4 mmol/L 3.5 - 5.3 mmol/L [facility] Protein [Mass/Vol] 6.3 g/dL Low 6.4 - 8.2 g/dL [facility] Sodium [Moles/Vol] 136 mmol/L 136 - 145 mmol/L [facility] Urea nitrogen [Mass/Vol] 30 mg/dL High 6 - 23 mg/d L [facility] Critical Careon 10-11-2023 Aury Rouse DO 10/12/2023 [...] specialty: no Care discussed with: admitting provider [facility] Work Phone: [facility] Work Phone: D-Dimer, VTE Exclusionon Fibrin D-dimer FEU (PPP) [Mass/Vol] 1869 High NINF [facility] ECG 12-LEADon 10-11-2023 ECG 12-LEAD Ventricular Rate 113 Atrial Rate 113 P-R Interval 148 QRS Duration 82 Q-T Interval 332 QTC Calculation(Bazett) 455 P [place] 67 R [place] 39 T [place] 81 QRS Count 18 Q Onset 220 P Onset 146 P Offset 189 T Offset 386 QTC Fredericia 410 Diagnosis Sinus tachycardia 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 NON-SPECIFIC T-WAVE CHANGES Abnormal EKG Confirmed by Tyrone Bajwa ([id number]) on 10/11/2023 6:18:47 PM Normal [facility] FLUAV and FLUBV RNA ALICE+prob e Nom (Unsp spec)on 10-11-2023 FLUAV RNA ALICE+probe Ql (Resp) Not detected Not Detected [facility] FLUBV RNA ALICE+probe Ql (Resp) Not detected Not Detected [facility] This assay is an in vitro diagnostic multiplex nucleic acid amplification test for the detection and discrimination of Influenza A & B from nasopharyngeal specimens, and has been validated for use at [facility]. Negative results do not preclude Influenza A/B infections, and should not be used as the sole basis for diagnosis, treatment, or other management decisions. If Influenza A/B and RSV PCR results are negative, testing for Parainfluenza virus, Adenovirus and Metapneumovirus is routinely performed for [facility] pediatric oncology and intensive care inpatients, and is available on other patients by placing an add-on request. [facility] Fibrin D-dimer FEU (PPP) [Ma ss/Vol]on 10-11-2023 Interpretation and review of laboratory results Abnormal [facility] The VTE Exclusion D-Dimer assay is reported in ng/mL Fibrinogen Equivalent Units (FEU). Per wellness manager's instructions for use, a value of less [...] assessment model for DVT or PE exclusion.) [facility] Gas panel (BldA)on 3 Apparatus CANNULA [facility] Base excess Calc (Bld) [Moles/Vol] -2.2000 mmol/L Low -2.0 - 3.0 mmol/L [facility] CO2 (Bld) [Partial pressure] 41 mm[Hg] [facility] HCO3 (Bld) [Moles/Vol] 23.2 mmol/L 22.0 - 26.0 mmol/L [facility] Inhaled oxygen concentration 50 % [facility] Interpretation and review of laboratory results Abnormal [facility] Oxygen (Bld) [Partial pressure] 66 mm[Hg] Low [facility] Oxyhemoglobin (BldA) [Mass fraction] 90.6 % Low 94.0 - 98.0 % [facility] pH (Bld) 7.36 [pH] Low 7.38 - 7.42 pH [facility] Glucose Test strip manual (B ld) [Mass/Vol]on 10-11-2023 Glucose [Mass/Vol] 132 mg/dL High 74 - 99 mg/dL [facility] Interpretation and review of laboratory results Abnormal [facility] Glucose [Mass/Vol] 203 mg/dL High 74 - 99 mg/dL [facility] Interpretation and review of laboratory results Abnormal [facility] Glucose [Mass/Vol] 271 mg/dL High 74 - 99 mg/dL [facility] Interpretation and review of laboratory results Abnormal [facility] Glucose [Mass/Vol] 357 mg/dL High 74 - 99 mg/dL [facility] Interpretation and review of laboratory results Abnormal [facility] Glucose [Mass/Vol] 407 mg/dL High 74 - 99 mg/dL [facility] Interpretation and review of laboratory results Abnormal [facility] Glucose [Mass/Vol] 385 mg/dL High 74 - 99 mg/dL [facility] Interpretation and review of laboratory results Abnormal [facility] Glucose [Mass/Vol] 455 mg/dL High 74 - 99 mg/dL [facility] Comment on above: RN/ NOTIFIED Interpretation and review of laboratory results Abnormal [facility] Glucose [Mass/Vol] 481 mg/dL High 74 - 99 mg/dL [facility] Comment on above: RN/ NOTIFIED Interpretation and review of laboratory results Abnormal [facility] Glucose [Mass/Vol] mg/dL High 74 - 99 mg/dL [facility] Interpretation and review of laboratory results Abnormal [facility] Glucose [Mass/Vol] mg/dL High 74 - 99 mg/dL [facility] Interpretation and review of laboratory results Abnormal [facility] Glucose [Mass/Vol] 571 mg/dL High 74 - 99 mg/dL [facility] Interpretation and review of laboratory results Abnormal [facility] Glucose [Mass/Vol] 562 mg/dL High 74 - 99 mg/dL [facility] Comment on above: RN/ NOTIFIED Interpretation and review of laboratory results Abnormal [facility] Glucose [Mass/Vol] 386 mg/dL High 74 - 99 mg/dL [facility] Interpretation and review of laboratory results Abnormal [facility] Glucose [Mass/Vol]on 023 Interpretation and review of laboratory results Abnormal [facility] Glucose, randomon 10-11-2023 Glucose [Mass/Vol] 654 mg/dL Critically high 74 - 99 mg/d L [facility] Comment on above: Confirmed by repeat analysis Lactateon 10-11-2023 Lactate [Moles/Vol] 1.6 mmol/L 0.4 - 2. 0 mmol/L [facility] Lactate [Moles/Vol]on 2022 Interpretation and review of laboratory results Normal [facility] Venipuncture immediately after or during the administration of Metamizole may lead to falsely low results. Testing should be performed immediately prior to Metamizole dosing. [facility] Natriuretic peptide B [Mass/ Vol]on 10-11-2023 Interpretation and review of laboratory results Abnormal [facility] Natriuretic peptide B (Bld) [Mass/Vol] 251 pg/mL High 0 - 99 pg/mL [facility] <100 pg/mL - Heart failure unlikely 100-299 pg/mL - Intermediate probability of acute heart failure exacerbation. Correlate with clinical context and patient history. >=300 pg/mL - Heart Failure likely. Correlate with clinical context and patient history. BNP testing is performed using different testing methodology at [facility] than at other [facility]. Direct result comparisons should only be made within the same method. [facility] No Panel Informationon 10-11 Atrial Rate 113 BPM [facility] Work Phone: [phone] P [place] 67 degrees [facility] Work Phone: [phone] P Offset 189 ms [facility] Work Phone: [phone] P Onset 146 ms [facility] Work Phone: [phone] MN Interval 148 ms [facility] Work Phone: [phone] Q Onset 220 ms [facility] Work Phone: [phone] QRS Count 18 beats [facility] Work Phone: [phone] QRS Duration 82 ms [facility] Work Phone: [phone] QT Interval 332 ms [facility] Work Phone: [phone] QTC Calculation(Bazett) 455 ms [facility] Work Phone: QTC Fredericia 410 ms [facility] Work Phone: R [place] 39 degrees [facility] Work Phone: T [place] 81 degrees [facility] Work Phone: T Offset 386 ms [facility] Work Phone: Ventricular Rate 113 BPM [facility] Work Phone: Sinus tachycardia 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 [facility] Comment on above: Auto resulted. [facility] Interpretation and review of laboratory results Normal [facility] ProcalcitoninOrdered By: Teresa Fine on 10-11-2023 Procalcitonin [Mass/Vol] 0.18 ng/mL High ANGEL F - 0.07 ng/mL [facility] Procalcitonin [Mass/Vol]Orde red By: Ismael Fine on 10-11-2023 Interpretation and review of laboratory results Abnormal [facility] Procalcitonin (PCT) results measured serially can aid [...] on immunomodulatory medications has not been evaluated. [facility] RSV PCRon 10-11-2023 RSV RNA ALICE+probe Ql (Resp) Not detected Not Detected [facility] RSV RNA ALICE+probe Ql (Resp)o n 10-11-2023 This assay is an FDA-cleared, in vitro diagnostic nucleic acid amplification test for the detection of RSV from nasopharyngeal specimens, and has been validated for use at [facility]. Negative results do not preclude RSV infections, and should not be used as the sole basis for diagnosis, treatment, or other management decisions. If Influenza A/B and RSV PCR results are negative, testing for Parainfluenza virus, Adenovirus and Metapneumovirus is routinely performed for pediatric oncology and intensive care inpatients at [facility], and is available on other patients by placing an add-on request. [facility] SARS-CoV-2 (COVID-19) RNA NA A+probe Ql (Resp)Ordered By: Rae Marcelino on 10-11-2023 Interpretation and review of laboratory results Abnormal [facility] This assay has received FDA Emergency Use [...] and has been validated for use at [facility]. Negative results do not preclude COVID-19 infections and should not be used as the sole basis for diagnosis, treatment, or other management decisions. [facility] SST TOPon 10-11-2023 Extra Tube Hold for add-ons. [facility] Comment on above: Auto resulted. [facility] Sars-CoV-2 PCR, SymptomaticO rdered By: Rae Marcelino on 10-11-2023 SARS-CoV-2 (COVID-19) RNA ALICE+probe Ql (Resp) Detected Abnormal Not Detected [facility] Tropinin I.cardiac panel Hig h sensitivity methodon 10-11-2023 Interpretation and review of laboratory results Abnormal [facility] Less than 99th percentile of normal range [...] performed using a different testing methodology at [facility] than at other [facility]. Direct result comparisons should only be made within the same method. [facility] Interpretation and review of laboratory results Abnormal [facility] Less than 99th percentile of normal range [...] performed using a different testing methodology at [facility] than at other [facility]. Direct result comparisons should only be made within the same method. [facility] Troponin I, High Sensitivity , Initialon 10-11-2023 Tropinin I.cardiac panel High sensitivity method 102 ng/L Critically high 0 - 20 ng/L [facility] Troponin, High Sensitivity, 1 Houron 10-11-2023 Tropinin I.cardiac panel High sensitivity method 354 ng/L Critically high 0 - 20 ng/L [facility] Comment on above: Previous result veri fied on 10/11/2023 0209 on specimen/case [id number] called with component [facility] for procedure Troponin I, High Sensitivity, Initial with value 102 ng/L. US Heart TransthoracicOrdere d By: Jose Enrique Molina on 10-11-2023 LA vol index A/L 25.1 [facility] Work Phone: LV A4C EF 45.6 [facility] Work Phone: LV biplane EF 44 [facility] Work Phone: LVIDd 3.70 [facility] Work Phone: LVOT diam 1.80 [facility] Work Phone: [facility] Work Phone: [place] [address] [phone], TRANSTHORACIC ECHOCARDIOGRAM REPORT Patient Name: ENOC Wills Physician: [id number] Jose Enrique Molina MD Study Date: 10/11/2023 Ordering Provider: [id number] RIVERA MRN/PID: [id number] Fellow: Nurse: Jana See RN Date of /Age: 2 1945 / 77 years 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 Gender: M Additional Staff: Height: 170.18 cm Admit Date: Weight: 71.67 kg Admission Status: Inpatient - Routine BSA: 1.83 m2 Department Location: [address]-ICU Blood Pressure: 141 /71 mmHg Study Type: TRANSTHORACIC ECHO (TTE) COMPLETE Diagnosis/ICD: Acute on chronic systolic (congestive) heart failure (CHF)-I50.23 CPT Codes: Echo Complete w Full Doppler-[id number] Study Detail: The following Echo studies were [...] LA Area A2C: 16.2 cm2 LA Major [place] A4C: 5.3 cm LA Major [place] A2C: 5.0 cm LA Volume Index: 23.9 ml/m2 LA Vol A4C: 43.7 ml LA Vol A2C: 43.3 ml LV SYSTOLIC FUNCTION BY 2D PLANIMETRY (MOD): Normal Ranges: EF-A4C View: 45.6 % (>=55%) EF-A2C View: 40.9 % EF-Biplane: 44.2 % AORTIC VALVE: Normal Ranges: LVOT Diameter: 1.80 cm (1.8-2.4cm) RIGHT VENTRICLE: RV Basal 3.49 cm RV Mid 2.45 cm RV Major 7.8 cm [id number] Jose Enrique Molina MD Electronically signed on 10/11/2023 at 9:43:19 AM Final Jose Enrique Gardiner MD - 10/11/2023 [place] [address] [phone], TRANSTHORACIC ECHOCARDIOGRAM REPORT Patient Name: ENOC Wills Physician: [id number] Jose Enrique Molina MD Study Date: 10/11/2023 Ordering Provider: [id number] VERA RIVERA MRN/PID: [id number] Fellow: Nurse: Jana See RN Date of /Age: 2 1945 / 77 years 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 Gender: M Additional Staff: Height: 170.18 cm Admit Date: Weight: 71.67 kg Admission Status: Inpatient - Routine BSA: 1.83 m2 Department Location: [facility] Blood Pressure: 141 /71 mmHg Study Type: TRANSTHORACIC ECHO (TTE) COMPLETE Diagnosis/ICD: Acute on chronic systolic (congestive) heart failure (CHF)-I50.23 CPT Codes: Echo Complete w Full Doppler-37007 Study Detail: The following Echo studies were [...] LA Area A2C: 16.2 cm2 LA Major [place] A4C: 5.3 cm LA Major [place] A2C: 5.0 cm LA Volume Index: 23.9 ml/m2 LA Vol A4C: 43.7 ml LA Vol A2C: 43.3 ml LV SYSTOLIC FUNCTION BY 2D PLANIMETRY (MOD): Normal Ranges: EF-A4C View: 45.6 % (>=55%) EF-A2C View: 40.9 % EF-Biplane: 44.2 % AORTIC VALVE: Normal Ranges: LVOT Diameter: 1.80 cm (1.8-2.4cm) RIGHT VENTRICLE: RV Basal 3.49 cm RV Mid 2.45 cm RV Major 7.8 cm [id number] Jose Enrique Molina MD Electronically signed on 10/11/2023 at 9:43:19 AM Final [facility] Work Phone: Urinalysis complete W Reflex Culture panel (U)on 10-11-2023 Hyaline casts Auto (Urine sed) [#/Area] OCCASIONAL Abnormal NONE /LPF [facility] Interpretation and review of laboratory results Abnormal [facility] RBC Auto (Urine sed) [#/Area] NONE NONE, 1-2, 3-5 /HPF [facility] WBC Auto (Urine sed) [#/Area] NONE 1-5, NONE /HPF [facility] Appearance (U) Clear Clear [facility] Work Phone: Bilirubin (U) [Mass/Vol] Negative NEGATIVE [facility] Work Phone: Color (U) Yellow Straw, Yellow [facility] Work Phone: Glucose Auto test strip (U) [Mass/Vol] >=500 (3+) Abnormal NEGATIVE mg/dL [facility] Work Phone: Interpretation and review of laboratory results Abnormal [facility] Work Phone: Ketones (U) [Mass/Vol] 5 (TRACE) Abnormal NEGAT FRANK mg/dL [facility] Work Phone: Leukocyte esterase Auto test strip Ql (U) Negative NEGATIVE [facility] Work Phone: [phone] Nitrite Auto test strip Ql (U) Negative NEGATIVE [facility] Work Phone: pH (U) 5.0 [pH] 5.0, 5.5, 6.0, 6.5, 7.0, 7.5, 8.0 [facility] Work Phone: Protein (U) [Mass/Vol] 100 (2+) Abnormal NEGAT FRANK mg/dL [facility] Work Phone: RBC (U) [#/Vol] Negative NEGATIVE [facility] Work Phone: Specific gravity (U) [Rel density] 1.014 1.005 - 1.035 [facility] Work Phone: Urobilinogen (U) [Mass/Vol] mg/dL NINF - 2.0 mg/dL [facility] Work Phone: [facility] Work Phone: XR Chest Single viewon 10-11 1. Diffuse interstitial and scattered hazy opacities. These are nonspecific and may represent atypical infectious or inflammatory process or possibly edema in the appropriate clinical setting. Component may also be related to chronic parenchymal changes. Recommend follow-up to resolution. Signed by: Kahlil Fagan 10/11/2023 1:33 AM Dictation workstation: [id number] Interpreted By: Kahlil Fagan, STUDY: XR CHEST 1 VIEW; 10/11/2023 1:30 am INDICATION: Signs/Symptoms:Cough . COMPARISON: Chest radiograph 11/04/2012 ACCESSION NUMBER(S): [id number] ORDERING CLINICIAN: AURY ROUSE FINDINGS: SUPPORT DEVICES: [...] . COMPARISON: Chest radiograph 11/04/2012 ACCESSION NUMBER(S): [id number] ORDERING CLINICIAN: AURY ROUSE FINDINGS: SUPPORT DEVICES: [...] Kahlil Fagan 10/11/2023 1:33 AM Dictation workstation: [id number] [facility] Work Phone: Radiology Study observation (narrative) [facility] Work Phone: XR Chest Single viewOrdered By: Kahlil Fagan on 10-11-2023 [facility] Work Phone: US RENAL BILATon 07-30-2023 US RENAL BILAT Patient Name: ENOC ARMANDO STUDY: US RENAL BILAT 07/30/2023 1:11 pm INDICATION: 77 y/o M with CKD N18.9: CKD (chronic kidney disease). COMPARISON: None. ACCESSION NUMBER(S): [id number] ORDERING CLINICIAN: AYANNA ALBERT TECHNIQUE: Grayscale imaging [...] hydronephrosis. Electronically signed by: TENNILLE MAHARAJ MD [facility] Therapy Communicationon 07-03 Therapy Communication Message ENOC ARMANDO was (D/C)- last seen: 01/25/23. Pt self-discharged from skilled Physical Therapy at this time. Pt was not able to be fully re-assessed due to self-discharging and not attending final re-evaluation appointment. Refer back in future if necessary. Signatures Electronically signed by : Carlene Whitehead PT; Jul 29 2023 5:06PM EST (Author) Normal [facility] Initial Visit (Nephrology)on 07-27-2023 Initial Visit (Nephrology) Diagnoses/Problems Arthritis (716.90) (M19.90) CKD (chronic kidney disease) (585.9) (N18.9) Diabetic neuropathy (250.60,357.2) (E11.40) HTN (hypertension) (401.9) (I10) T1DM (type 1 diabetes mellitus) (250.01) (E10.9) Orders Albumin, Urine Spot; Status:Active; Requested for:[id number]; Basic Metabolic Panel; Status:Active; Requested for:99Fno9926; Magnesium, Serum; Status:Active; Requested for:85Mce5601; Parathormone Intact, Serum; Status:Active; Requested for:41Iin6142; Phosphorus, Serum; Status:Active; Requested for:34Nep2264; Ultrasound Kidney Bilateral; Status:Hold For - Scheduling; Requested for:01Xjc1632; Radiologist to Determine Optimal Study : Y What are the patient's signs and symptoms? : CKD Uric Acid, Serum; Status:Active; Requested for:86Xna4826; Urinalysis; Status:Active; Requested for:26Zcx5337; Vitamin D 25-Hydroxy; Status:Need Information - ABN Disposition; Requested for:33Dlx6681; Patient Discussion/Summary Issues: 1. 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 Normal [facility] Tobacco Screening.on 023 Fall risk assessment b) One or more fall s in the last year [facility] Work Phone: Tobacco use status [facility] a) Yes [facility] Work Phone: COMPREHENSIVE PANELon 2022 Albumin [Mass/Vol] 3.7 g/dL Normal 3.4 - 5.0 [facility] Comment on above: Performed By: #### C MP #### [address] [address] ALP [Catalytic activity/Vol] 80 U/L Normal 33 - 136 [facility] Comment on above: Performed By: #### C MP #### [address] [address] ALT [Catalytic activity/Vol] 12 U/L Normal 10 - 52 [facility] Comment on above: Result Comment: Twila ents treated with Sulfasalazine may generate falsely decreased results for ALT. Performed By: #### C MP #### [address] [address] Anion gap [Moles/Vol] 10 mmol/L Normal 10 - 20 [facility] Comment on above: Performed By: #### C MP #### [address] [address] AST [Catalytic activity/Vol] 16 U/L Normal 9 - 39 [facility] Comment on above: Performed By: #### C MP #### [address] [address] Bilirubin [Mass/Vol] 0.5 mg/dL Normal 0.0 - 1.2 [facility] Comment on above: Performed By: #### C MP #### [address] [address] Calcium [Mass/Vol] 8.9 mg/dL Normal 8.6 - 10.3 [facility] Comment on above: Performed By: #### C MP #### [address] [address] Chloride [Moles/Vol] 107 mmol/L Normal 98 - 107 [facility] Comment on above: Performed By: #### C MP #### [address] [address] Creatinine [Mass/Vol] 1.85 mg/dL High 0.50 - 1.30 [facility] Comment on above: Performed By: #### C MP #### [address] [address] GFR/1.73 sq M.predicted among non-blacks MDRD (S/P/Bld) [Vol rate/Area] 36 mL/min/{1.73_m2} Abnormal >90 [facility] Comment on above: Result Comment: CALC ULATIONS OF ESTIMATED GFR ARE PERFORMED USING THE 2020 CKD-EPI STUDY REFIT EQUATION WITHOUT THE RACE VARIABLE FOR THE IDMS-TRACEABLE CREATININE METHODS. https://jasn.asnjournals.org/content/early//ASN.20 60621862 Performed By: #### C MP #### [address] [address] Glucose [Mass/Vol] 347 mg/dL High 74 - 99 [facility] Comment on above: Performed By: #### C MP #### [address] [address] HCO3 (Bld) [Moles/Vol] 27 mmol/L Normal 21 - 32 [facility] Comment on above: Performed By: #### C MP #### [address] [address] Potassium [Moles/Vol] 4.4 mmol/L Normal 3.5 - 5.3 [facility] Comment on above: Performed By: #### C MP #### [address] [address] Protein [Mass/Vol] 6.0 g/dL Low 6.4 - 8.2 [facility] Comment on above: Performed By: #### C MP #### [address] [address] Sodium [Moles/Vol] 140 mmol/L Normal 136 - 145 [facility] Comment on above: Performed By: #### C MP #### [address] [address] Urea nitrogen [Mass/Vol] 31 mg/dL High 6 - 23 [facility] Comment on above: Performed By: #### C MP #### [address] [address] HEMOGLOBIN A1Con 06-11-2023 Glucose [Mass/Vol] 171 mg/dL Normal [facility] Comment on above: Performed By: #### H BA1E #### [address] [address] HbA1c (Bld) [Mass fraction] 7.6 % Abnormal [facility] Comment on above: Result Comment: Diag nosis of Diabetes-Adults Non-Diabetic: < or = 5.6% Increased risk for developing diabetes: 5.7-6.4% Diagnostic of diabetes: > or = 6.5% . Monitoring of Diabetes Age (y) Therapeutic Goal (%) Adults: >18 <7.0 Pediatrics: 13-18 <7.5 7-12 <8.0 0- 6 7.5-8.5 [employer]. Diabetes Care 33(S1), Nov 2009. Performed By: #### H BA1E #### [address] [address] ALBUMIN, URINE SPOTon 2022 ALBUMIN,URINE 195.3 mg/L Normal Not Established [facility] Comment on above: Performed By: #### A LBSP ####[id number] [place] [address] ALBUMIN/CREAT RATIO 212.5 ug/mg perfect binder feeder offbearer High 0.0 - 30.0 [facility] Comment on above: Performed By: #### A LBSP ####[id number] [place] [address] CREATININE,URINE 91.9 mg/dL Normal 20.0 - 370.0 [facility] Comment on above: Performed By: #### A LBSP ####[id number] [place] [address] CBC AND DIFFERENTIALon 02-12 % AUTOMATED IMMATURE GRAN 0.3 % Normal 0.0 - 0.9 [facility] Comment on above: Result Comment: Arielle ture Granulocyte Count (IG) includes promyelocytes, myelocytes and metamyelocytes but does not include bands. Percent differential counts (%) should be interpreted in the context of the absolute cell counts (cells/L). Performed By: #### C BCDF #### [address] [address] Basophils (Bld) [#/Vol] 0.09 10*3/uL Normal 0.00 - 0.1 0 [facility] Comment on above: Performed By: #### C BCDF #### [address] [address] Basophils/100 WBC (Bld) 1.2 % Normal 0.0 - 2.0 [facility] Comment on above: Performed By: #### C BCDF #### [address] [address] Eosinophils (Bld) [#/Vol] 0.40 10*3/uL Normal 0.00 - 0 .40 [facility] Comment on above: Performed By: #### C BCDF #### [address] [address] Eosinophils/100 WBC (Bld) 5.2 % Normal 0.0 - 6.0 [facility] Comment on above: Performed By: #### C BCDF #### [address] [address] Erythrocyte distribution width (RBC) [Ratio] 13.1 % Normal 11.5 - 14.5 [facility] Comment on above: Performed By: #### C BCDF #### [address] [address] Hematocrit (Bld) [Volume fraction] 39.5 % Low 41.0 - 52.0 [facility] Comment on above: Performed By: #### C BCDF #### [address] [address] Hemoglobin (Bld) [Mass/Vol] 12.6 g/dL Low 13.5 - 17.5 [facility] Comment on above: Performed By: #### C BCDF #### [address] [address] Lymphocytes (Bld) [#/Vol] 1.68 10*3/uL Normal 0.80 - 3 .00 [facility] Comment on above: Performed By: #### C BCDF #### [address] [address] Lymphocytes/100 WBC (Bld) 21.9 % Normal 13.0 - 44. 0 [facility] Comment on above: Performed By: #### C BCDF #### [address] [address] MCHC (RBC) [Mass/Vol] 31.9 g/dL Low 32.0 - 36.0 [facility] Comment on above: Performed By: #### C BCDF #### [address] [address] MCV (RBC) [Entitic vol] 95 fL Normal 80 - 100 [facility] Comment on above: Performed By: #### C BCDF #### [address] [address] Monocytes (Bld) [#/Vol] 0.57 10*3/uL Normal 0.05 - 0.8 0 [facility] Comment on above: Performed By: #### C BCDF #### [address] [address] Monocytes/100 WBC (Bld) 7.4 % Normal 2.0 - 10.0 [facility] Comment on above: Performed By: #### C BCDF #### [address] [address] Neutrophils (Bld) [#/Vol] 4.91 10*3/uL Normal 1.60 - 5 .50 [facility] Comment on above: Result Comment: Perc ent differential counts (%) should be interpreted in the context of the absolute cell counts (cells/L). Performed By: #### C BCDF #### [address] [address] Neutrophils/100 WBC (Bld) 64.0 % Normal 40.0 - 80. 0 [facility] Comment on above: Performed By: #### C BCDF #### [address] [address] Platelets (Bld) [#/Vol] 229 10*3/uL Normal 150 - 450 [facility] Comment on above: Performed By: #### C BCDF #### [address] [address] RBC 4.18 x10E12/L Low 4.50 - 5.90 [facility] Comment on above: Performed By: #### C BCDF #### [address] [address] WBC (Bld) [#/Vol] 7.7 10*3/uL Normal 4.4 - 11.3 [facility] Comment on above: Performed By: #### C BCDF #### [address] [address] COMPREHENSIVE PANELon 2022 Albumin [Mass/Vol] 4.0 g/dL Normal 3.4 - 5.0 [facility] Comment on above: Performed By: #### C MP #### [address] [address] ALP [Catalytic activity/Vol] 79 U/L Normal 33 - 136 [facility] Comment on above: Performed By: #### C MP #### [address] [address] ALT [Catalytic activity/Vol] 12 U/L Normal 10 - 52 [facility] Comment on above: Result Comment: Twila ents treated with Sulfasalazine may generate falsely decreased results for ALT. Performed By: #### C MP #### [address] [address] Anion gap [Moles/Vol] 10 mmol/L Normal 10 - 20 [facility] Comment on above: Performed By: #### C MP #### [address] [address] AST [Catalytic activity/Vol] 13 U/L Normal 9 - 39 [facility] Comment on above: Performed By: #### C MP #### [address] [address] Bilirubin [Mass/Vol] 0.6 mg/dL Normal 0.0 - 1.2 [facility] Comment on above: Performed By: #### C MP #### [address] [address] Calcium [Mass/Vol] 9.4 mg/dL Normal 8.6 - 10.3 [facility] Comment on above: Performed By: #### C MP #### [address] [address] Chloride [Moles/Vol] 105 mmol/L Normal 98 - 107 [facility] Comment on above: Performed By: #### C MP #### [address] [address] Creatinine [Mass/Vol] 1.69 mg/dL High 0.50 - 1.30 [facility] Comment on above: Performed By: #### C MP #### [address] [address] GFR/1.73 sq M.predicted among non-blacks MDRD (S/P/Bld) [Vol rate/Area] 41 mL/min/{1.73_m2} Abnormal >90 [facility] Comment on above: Result Comment: CALC ULATIONS OF ESTIMATED GFR ARE PERFORMED USING THE 2020 CKD-EPI STUDY REFIT EQUATION WITHOUT THE RACE VARIABLE FOR THE IDMS-TRACEABLE CREATININE METHODS. https://jasn.asnjournals.org/content//ASN.20 14669511 Performed By: #### C MP #### [address] [address] Glucose [Mass/Vol] 253 mg/dL High 74 - 99 [facility] Comment on above: Performed By: #### C MP #### [address] [address] HCO3 (Bld) [Moles/Vol] 28 mmol/L Normal 21 - 32 [facility] Comment on above: Performed By: #### C MP #### [address] [address] Potassium [Moles/Vol] 4.8 mmol/L Normal 3.5 - 5.3 [facility] Comment on above: Performed By: #### C MP #### [address] [address] Protein [Mass/Vol] 6.4 g/dL Normal 6.4 - 8.2 [facility] Comment on above: Performed By: #### C MP #### [address] [address] Sodium [Moles/Vol] 138 mmol/L Normal 136 - 145 [facility] Comment on above: Performed By: #### C MP #### [address] [address] Urea nitrogen [Mass/Vol] 25 mg/dL High 6 - 23 [facility] Comment on above: Performed By: #### C MP #### [address] [address] HEMOGLOBIN A1Con 02-12-2023 Glucose [Mass/Vol] 174 mg/dL Normal [facility] Comment on above: Performed By: #### H BA1E #### [address] [address] HbA1c (Bld) [Mass fraction] 7.7 % Abnormal [facility] Comment on above: Result Comment: Diag nosis of Diabetes-Adults Non-Diabetic: < or = 5.6% Increased risk for developing diabetes: 5.7-6.4% Diagnostic of diabetes: > or = 6.5% . Monitoring of Diabetes Age (y) Therapeutic Goal (%) Adults: >18 <7.0 Pediatrics: 13-18 <7.5 7-12 <8.0 0- 6 7.5-8.5 [employer]. Diabetes Care 33(S1), Nov 2009. Performed By: #### H BA1E #### [address] [address] LIPID PANEL (CORONARY RISK 2 )on 02-12-2023 Cholesterol [Mass/Vol] 154 mg/dL Normal 0 - 199 [facility] Comment on above: Result Comment: . AGE [...] dosing. Performed By: #### L IPID #### [address] [address] Cholesterol in HDL [Mass/Vol] 43.0 mg/dL Normal [facility] Comment on above: Result Comment: . AGE VERY LOW LOW NORMAL HIGH 0-19 Y < 35 < 40 40-45 ---- 20-24 Y ---- < 40 >45 ---- >24 Y ---- < 40 40-60 >60 . Performed By: #### L IPID #### [address] [address] Cholesterol in LDL [Mass/Vol] 96 mg/dL Normal 0 - 99 [facility] Comment on above: Result Comment: . NEAR BORD AGE DESIRABLE OPTIMAL HIGH HIGH VERY HIGH 0-19 Y 0 - 109 --- 110-129 >/= 130 ---- 20-24 Y 0 - 119 --- 120-159 >/= 160 ---- >24 Y 0 - 99 100-129 130-159 160-189 >/=190 . Performed By: #### L IPID #### [address] [address] Cholesterol in VLDL [Mass/Vol] 15 mg/dL Normal 0 - 40 [facility] Comment on above: Performed By: #### L IPID #### [address] [address] Cholesterol.total/Cholest santos in HDL [Mass ratio] 3.6 {ratio} Normal [facility] Comment on above: Result Comment: REF VALUES DESIRABLE < 3.4 HIGH RISK > 5.0 Performed By: #### L IPID #### [address] [address] Triglyceride [Mass/Vol] 77 mg/dL Normal 0 - 149 [facility] Comment on above: Result Comment: . AGE [...] dosing. Performed By: #### L IPID #### [address] [address] PROSTATE SPEC.AG,SCREENon PROSTATE SPEC.AG,SCREEN 3.14 ng/mL Normal 0.00 - 4.00 [facility] Comment on above: Result Comment: The FDA requires that the method used for PSA assay be reported to the physician. Values obtained with different assay methods must not be used interchangeably. This test was performed at [facility] using the Action PSA assay is a two-site immunoenzymatic sandwich assay. The assay is approved for measurement of prostate-specific antigen (PSA)in serum and may be used in conjunction with a digital rectal examination in men 50 years and older as an aid in detection of prostate cancer. 5-Nnjxi-ougjzpejq inhibitors (e.g. Proscar, Finasteride, Avodart, Dutasteride and Alma Rosa) for the treatment of BPH have been shown to lower PSA levels by an average of 50% after 6 months of treatment. Performed By: #### P SAS #### [address] [address] THYROXINE,FREEon 02-12-2023 THYROXINE,FREE 1.16 ng/dL High 0.61 - 1.12 [facility] Comment on above: Result Comment: Thyr oxine Free testing is performed using different testing methodology at [facility] than at other [facility]. Direct result comparisons should only be made [...] draw. Performed By: #### T 4FRE #### [address] [address] TSHon 02-12-2023 TSH Qn 0.73 m[IU]/L Normal 0.44 - 3.98 [facility] Comment on above: Result Comment: TSH testing is performed using different testing methodology at [facility] than at other [facility]. Direct result comparisons should only be made within the same method. Performed By: #### T SH2 #### [address] [address] PT Progress Noteon 3 PT Progress Note [...] . the patient will continue therapy at [place]. Potential to achieve rehab goals is fair: [...] code time is 30 minutes. Therapeutic exercise (45826):. Not Today 01/25/23 NuStep 5? Slant board [...] 10 x 10? hold (N). Manual Therapy (02968): timed minutes 15, units 1 . STW to glutes and QL and IT band, hip flexor. Modalities: untimed minutes 15, units 1 . IFC to R Lumbar/Glute region x 10' in S/L w/ MHP. 'Scores and Scales' Signatures Electronically signed by : Zoila Lopez SINTERING PRESS OPERATOR; Jan 25 2023 5:14PM EST (Author) Electronically signed by : Carlene Whitehead, PT; Feb 23 2023 10:49PM EST Normal [facility] PT Progress Noteon 3 PT Progress Note [...] . the patient will continue therapy at [place]. Potential to achieve rehab goals is fair: [...] code time is 35 minutes. Therapeutic exercise (16685): timed minutes 20, units 1 . Pt [...] chops wit (more content not included)... Normal [facility] Therapy Re-eval Noteon 01-18 Therapy Re-eval Note [...] . the patient will continue therapy at [facility]. Potential to achieve rehab goals is fair: [...] Declined. Insurance Insurance reviewed Visit number: 9 [facility] Evaluating therapist Shoaib Bhandari PT. [...] code time is 35 minutes. Therapeutic exercise (18304): timed minutes 20, units 1 . Pt [...] . the patient will continue therapy at [facility]. Potential to achieve rehab goals is fair: [...] code time is 38 minutes. Therapeutic exercise (77087): timed minutes 26, units 2 . NuStep [...] 30? D/C to HEP . Manual Therapy (83608): timed minutes 12, units 1 . STW to glutes and QL and IT band. Provided today:. 12/25/22 [id number] Provided and reviewed HEP, patient demosntrated good understanding. 'Scores and Scales' Signatures Electronically signed by : Chaya Morrow (more content not included)... Normal [facility] PT Progress Noteon 3 PT Progress Note [...] . the patient will continue therapy at [facility]. Potential to achieve rehab goals is fair: [...] code time is 38 minutes. Therapeutic exercise (14912): timed minutes 26, units 2 . NuStep [...] 30? D/C to HEP . Manual Therapy (41254): timed minutes 12, units 1 . STW to glutes and QL and IT band. Provided today:. 12/25/22 [id number] Provided and reviewed HEP, patient demosntrated good understanding. 'Scores and Scales' Signatures Electronically signed by : Chaya Chan, SINTERING PRESS OPERATOR; Jan 13 2023 11:01AM EST (Author) Electronically signed by : Carlene Whitehead, PT; Jan 17 2023 3:07PM EST Normal [facility] PT Progress Noteon 3 PT Progress Note [...] . the patient will continue therapy at [facility]. Potential to achieve rehab goals is fair: [...] Declined. Insurance Insurance reviewed Visit number: 6 [facility] Evaluating therapist Shoaib Bhandari PT. [...] code time is 43 minutes. Therapeutic exercise (28692): timed minutes 32, units 2 . NuStep [...] x 10 Green band . Manual Therapy (06558): timed minutes 11, units 1 . STW to glutes and QL 10'. Provided today:. 12/25/22 [id number] Provided and reviewed HEP, patient demosntrated good understanding. 'Scores and Scales' Signatures Electronically signed by : Chaya Chan, SINTERING PRESS OPERATOR; Jan 08 2023 10:51AM EST (Author) Electronically [...] . the patient will continue therapy at [facility]. Potential to achieve rehab goals is fair: [...] Declined. Insurance Insurance reviewed Visit number: 5 [facility] Evaluating therapist Shoaib Bhandari PT. [...] code time is 44 minutes. Therapeutic exercise (12704): timed minutes 34, units 2 . NuStep [...] 10 Green band (N) . Manual Therapy (12471): timed minutes 10, units 1 . STW to glutes and QL 10'. Provided today:. 12/25/22 [id number] Provided and reviewed HEP, patient demosntrated good understanding. 'Scores and Scales' Signatures Electronically signed by : Zoila Lopez SINTERING PRESS OPERATOR; Jan 06 2023 12:41PM EST (Author) Electronically [...] . the patient will continue therapy at [facility]. Potential to achieve rehab goals is fair: [...] code time is 44 minutes. Therapeutic exercise (40965): timed minutes 34, units 2 . NuStep [...] x 10 orange band . Manual Therapy (80099): timed minutes 10, units 1 . STW to glutes and QL 10'. Provided today:. 12/25/22 [id number] Provided and reviewed HEP, patient demosntrated good understanding. 'Scores and Scales' Signatures Electronically signed by : Zoila Lopez SINTERING PRESS OPERATOR; Jan 01 2023 12:56PM EST (Author) Electronically signed by : Carlene Whitehead, PT; Jan 17 2023 3:06PM EST Normal [facility] PT Progress Noteon 3 PT Progress Note [...] . the patient will continue therapy at [facility]. Potential to achieve rehab goals is fair: [...] code time is 44 minutes. Therapeutic exercise (62732): timed minutes 34, units 2 . NuStep [...] x 10 orange band . Manual Therapy (67595): timed minutes 10, units 1 . STW to glutes and QL 10'. Provided today:. 12/25/22 [id number] Provided and reviewed HEP, patient demosntrated good understanding. 'Scores and Scales' Signatures Electronically signed by : Zoila Lopez, SINTERING PRESS OPERATOR; Dec 30 2022 5:01PM EST (Author) Electronically signed by : Carlene Whitehead, PT; Jan 17 2023 3:06PM EST Normal [facility] PT Progress Noteon 3 PT Progress Note [...] . the patient will continue therapy at [facility]. Potential to achieve rehab goals is fair: [...] Declined. Insurance Insurance reviewed Visit number: 2 [facility] Evaluating therapist Shoaib Bhandari PT. [...] code time is 41 minutes. Therapeutic exercise (73567): timed minutes 31, units 2 . NuStep 5? start wall lean n mini squat x10 LTR x10 5? hold Piriformis stretch 3 x 30? Supine QL stretch 3 x 30? Hip flex stretch EOB TrA x10 5? hold Hooklying TrA/hip add ball 2 x 10 3? hold Hooklying TrA/hip abd 2 x 10 orange band . Manual Therapy (54795): timed minutes 10, units 1 . STW to gluts and QL. Provided today:. 12/25/22 [id number] Provided and reviewed HEP, patient demosntrated good understanding. 'Scores and Scales' Signatures Electronically signed by : Chaya Chan, SINTERING PRESS OPERATOR; Dec 25 2022 10:14AM EST (Author) Electronically signed by : Carlene Whitehead, PT; Jan 17 2023 3:06PM EST Normal [facility] PT Initial Evaluationon 12-03 PT Initial Evaluation [...] . the patient will continue therapy at [facility]. 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 Assessment At least a 5 yr HX of LBP (previous HX of sciatica). No recent film studies have been done. He will be a low fall risk. The patient will continue his therapy at [facility]. Physical findings include limited trunk ROM with [...] Declined. Insurance Insurance reviewed Visit number: 1 [facility] Evaluating therapist Shoaib Bhandari PT. [...] Impact Care:. ID confirmed with B-day; speaks congolese No obtrusive barriers to learning identified/observed. Objective [...] am Time (more content not included)... Normal [facility] US DOPPLER CAROTIDOrdered By : Mary Vargas on 02-26-2021 Patient Info Name: ENOC ARMANDO Age: 75 years : 1945 Gender: Male Exam Date: 02/26/2021 1:55 PM Patient Status: Outpatient Sizing Sponger: Melissa Swift BS, RDMS (AB), RVT Referring Physician: MARY VARGAS ; Indications I65.23 - Occlusion and stenosis of bilateral carotid arteries Procedure Description 79659 Duplex examination using B-mode, color and spectral [...] noted in the (more content not included)... [facility] Interface, Rad In Heartlab Xper Echopacs - 02/26/2021 4:33 PM EDT Patient Info Name: ENOC ARMANDO Age: 75 years : 1945 Gender: Male Exam Date: 02/26/2021 1:55 PM Patient Status: Outpatient Sizing Sponger: Melissa Swift, TAMMI, RDMS (AB), RVT Referring Physician: MARY VARGAS ; Indications I65.23 - Occlusion and stenosis of bilateral carotid arteries Procedure Description 81985 Duplex examination using B-mode, color and spectral [...] JO-ANN Nguyen DO on 02/26/2021 04:31 PM [facility] Auto Diffon 07-04-2019 Basophils (Bld) [#/Vol] 0.1 E3/mcL Normal 0.0-0.2 [facility] Comment on above: Order Comment: Order Added by Discern Expert. Performed By: #### 2 [id number] #### MIKE Zazueta [address] [place] [address] Basophils/100 WBC (Bld) 1.2 % Normal 0.0-2.0 [facility] Comment on above: Order Comment: Order Added by Discern Expert. Performed By: #### 2 727020 #### MIKE [employer] [address] [place] [address] Eos Absolute 0.2 E3/mcL Normal 0.0-0.7 [facility] Comment on above: Order Comment: Order Added by Discern Expert. Performed By: #### 2 [id number] #### MIKE [employer] [address] [place] [address] 29592 Eosinophils/100 WBC (Bld) 2.0 % Normal 0.0-11.0 [facility] Comment on above: Order Comment: Order Added by Discern Expert. Performed By: #### 2 056811 #### MIKE [employer] [address] [place] [address]4946 Lymphocytes (Bld) [#/Vol] 1.7 E3/mcL Normal 1.2-3.4 [facility] Comment on above: Order Comment: Order Added by Discern Expert. Performed By: #### 2 492747 #### MIKE [employer] [address] [place] [address] 9[address]05 Lymphocytes/100 WBC (Bld) 20.9 % Normal 20.0-55.0 [facility] Comment on above: Order Comment: Order Added by Discern Expert. Performed By: #### 2 209900 #### MIKE [employer] [address] [place] [address] [place] Absolute 0.7 E3/mcL Normal 0.0-0.7 [facility] Comment on above: Order Comment: Order Added by Discern Expert. Performed By: #### 2 618345 #### MIKE [address] [place] [address] Monocytes/100 WBC (Bld) 8.0 % Normal 0.0-10.0 [facility] Comment on above: Order Comment: Order Added by Discern Expert. Performed By: #### 2 160551 #### MIKE [employer] [address] [place] [address]2670 Neutro Absolute 5.5 E3/mcL Normal 1.4-6.5 [facility] Comment on above: Order Comment: Order Added by Discern Expert. Performed By: #### 2 968923 #### MIKE Rodriguez[address] [address] Neutro Auto 67.9 % Normal 37.0-75.0 [facility] Comment on above: Order Comment: Order Added by Discern Expert. Performed By: #### 2 251707 #### MIKE Rodriguez[address] [address] CBC w/ Auto Diffon 9 Erythrocyte distribution width (RBC) [Ratio] 13.3 % Normal 11.5-14.5 [facility] Comment on above: Performed By: #### 2 321938 #### MIKE [address] [place] [address] Hematocrit (Bld) [Volume fraction] 40.4 % Low 42.0-52.0 [facility] Comment on above: Performed By: #### 2 065399 #### MIKEAnabelle Rodriguez[address] [address] Hemoglobin (Bld) [Mass/Vol] 13.6 g/dL Normal 13.5-18.0 [facility] Comment on above: Performed By: #### 2 289939 #### MIKE Rodriguez[address] [address] MCH (RBC) [Entitic mass] 31.6 pg High 27.0-31.0 [facility] Comment on above: Performed By: #### 2 874571 #### MIKE [employer] [address] [place] [address] MCHC (RBC) [Mass/Vol] 33.7 g/dL Normal 33.0-37.[address] [facility] Comment on above: Performed By: #### 2 544702 #### MIKE [employer] [address] [place] [address] MCV (RBC) [Entitic vol] 93.8 fL Normal 78.0-100.0 [facility] Comment on above: Performed By: #### 2 782005 #### MIKE [employer] [address] [place] [address] Platelet mean volume (Bld) [Entitic vol] 10.2 fL Normal 7.4-11.0 [facility] Comment on above: Performed By: #### 2 252217 #### MIKE [employer] [address] [place] [address] Platelets (Bld) [#/Vol] 218 E3/mcL Normal 130-400 [facility] Comment on above: Performed By: #### 2 440647 #### MIKE [employer] [address] [place] [address] RBC (Bld) [#/Vol] 4.31 E6/mcL Normal 3.90-6.10 [facility] Comment on above: Performed By: #### 2 387604 #### MIKEAnabelle RodriguezChem [address] [place] [address] WBC (Bld) [#/Vol] 8.1 E3/mcL Normal 3.6-11.0 [facility] Comment on above: Performed By: #### 2 424311 #### MIKE [employer] [address] [place] [address] CMPon 07-04-2019 Albumin [Mass/Vol] 4.2 g/dL Normal 3.4-5.0 [facility] Comment on above: Performed By: #### 2 838479 #### MIKE [employer] [address] [place] [address] Albumin/Globulin [Mass ratio] 1.8 {ratio} Normal 1.1-1.9 [facility] Comment on above: Performed By: #### 2 280065 #### MIKE [employer] [address] [place] [address] Alk Phos 81 Int._Unit/L Normal 33-136 [facility] Comment on above: Performed By: #### 2 391491 #### MIKE [employer] [address] [place] [address] ALT [Catalytic activity/Vol] 15 Int._Unit/L Normal 10-52 [facility] Comment on above: Performed By: #### 2 588699 #### MIKE [employer] [address] [place] [address] Anion gap [Moles/Vol] 12 mmol/L Normal 10-[address] [facility] Comment on above: Performed By: #### 2 606591 #### MIKE [employer] [address] [place] [address] AST [Catalytic activity/Vol] 18 Int._Unit/L Normal 9-39 [facility] Comment on above: Performed By: #### 2 580895 #### MIKE [employer] [address] [place] [address] Bili Total 0.35 mg/dL Normal 0.00-1.20 [facility] Comment on above: Performed By: #### 2 269105 #### MIKE [employer] [address] [place] [address] Calcium [Mass/Vol] 9.5 mg/dL Normal 8.6-10.3 [facility] Comment on above: Performed By: #### 2 844259 #### MIKE [employer] [address] [place] [address] Chloride [Moles/Vol] 108 mmol/L High 98-107 [facility] Comment on above: Performed By: #### 2 805663 #### MIKE [employer] [address] [place] [address] CO2 [Moles/Vol] 27.0 mmol/L Normal 21.0-32.0 [facility] Comment on above: Performed By: #### 2 928973 #### MIKE [employer] [address] [place] [address] Creatinine [Mass/Vol] 1.0 mg/dL Normal 0.5-1.[address] [facility] Comment on above: Performed By: #### 2 390389 #### MIKE RodriguezSqueezeCMM [address] [place] [address] Globulin (S) [Mass/Vol] 2.0 g/dL Normal 2.0-4.0 [facility] Comment on above: Performed By: #### 2 182285 #### MIKE [employer] [address] [place] [address] Glucose [Mass/Vol] 159 mg/dL High 70-99 [facility] Comment on above: Performed By: #### 2 896737 #### MIKE RodriguezSqueezeCMM [facility] [place] [address] Potassium [Moles/Vol] 3.7 mmol/L Normal 3.5-5.[address] [facility] Comment on above: Performed By: #### 2 644114 #### MIKE RodriguezSqueezeCMM [address] [place] [address] Protein [Mass/Vol] 6.5 g/dL Normal 6.4-8.2 [facility] Comment on above: Performed By: #### 2 411708 #### MIKE RodriguezSqueezeCMM [address] [place] [address] Sodium [Moles/Vol] 143 mmol/L Normal 136-145 [facility] Comment on above: Performed By: #### 2 039437 #### MIKE RodriguezSqueezeCMM [address] [place] [address] Urea nitrogen [Mass/Vol] 19 mg/dL Normal 6-23 [facility] Comment on above: Performed By: #### 2 935721 #### MIKE [employer] [address] [place] [address] Urea nitrogen/Creatinine [Mass ratio] 19.0 ratio Normal 5.4-30.0 [facility] Comment on above: Performed By: #### 2 546419 #### MIKE [employer] [address] [place] [address] NeqL0ptt 07-04-2019 HbA1c (Bld) [Mass fraction] 8.3 % High 4.0-6.3 [facility] Comment on above: Performed By: #### 2 237925 #### MIKE [employer] [address] [place] [address] eGFRon 07-04-2019 GFR/1.73 sq M predicted among non-blacks MDRD (S/P/Bld) [Vol rate/Area] mL/min/{1.73_m2} Normal [facility] Comment on above: Order Comment: Order added by Discern Expert. Performed By: #### 2 076682 #### MIKE [employer] [address] [place] [address] Auto Diffon 03-03-2019 Basophils (Bld) [#/Vol] 0.1 E3/mcL Normal 0.0-0.2 [facility] Comment on above: Order Comment: Order Added by Discern Expert. Performed By: #### 2 460507 #### MIKE RemHemo [address] [place] [address] Basophils/100 WBC (Bld) 1.0 % Normal 0.0-2.0 [facility] Comment on above: Order Comment: Order Added by Discern Expert. Performed By: #### 2 339519 #### MIKE RemHemo [address] [place] [address] Eos Absolute 0.2 E3/mcL Normal 0.0-0.7 [facility] Comment on above: Order Comment: Order Added by Andrew Expert. Performed By: #### 2 871612 #### MIKE RemHemo [address] [place] [address] Eosinophils/100 WBC (Bld) 2.6 % Normal 0.0-11.0 [facility] Comment on above: Order Comment: Order Added by Discern Expert. Performed By: #### 2 473763 #### MIKE RemHemo [address] [place] [address] Lymphocytes (Bld) [#/Vol] 2.0 E3/mcL Normal 1.2-3.4 [facility] Comment on above: Order Comment: Order Added by Discern Expert. Performed By: #### 2 244964 #### MIKE RemHemo [address] [place] [address] Lymphocytes/100 WBC (Bld) 26.7 % Normal 20.0-55.0 [facility] Comment on above: Order Comment: Order Added by Discern Expert. Performed By: #### 2 454150 #### MIKE RodriguezHemo [address] [place] [address] [place] Absolute 0.7 E3/mcL Normal 0.0-0.7 [facility] Comment on above: Order Comment: Order Added by Discern Expert. Performed By: #### 2 886136 #### MIKE Ackermano [address] [place], [place] [address] Monocytes/100 WBC (Bld) 9.4 % Normal 0.0-10.0 [facility] Comment on above: Order Comment: Order Added by Discern Expert. Performed By: #### 2 469140 #### MIKE Ackermano [address] [place], [place] [address] Neutro Absolute 4.5 E3/mcL Normal 1.4-6.5 [facility] Comment on above: Order Comment: Order Added by Discern Expert. Performed By: #### 2 559838 #### MIKE RodriguezHemo [address] [place], [place] [address] Neutro Auto 60.3 % Normal 37.0-75.0 [facility] Comment on above: Order Comment: Order Added by Discern Expert. Performed By: #### 2 888202 #### MIKE Ackermano [address] [place] [address] CBC w/ Auto Diffon 9 Erythrocyte distribution width (RBC) [Ratio] 13.2 % Normal 11.5-14.5 [facility] Comment on above: Performed By: #### 2 317676 #### MIKE RodriguezHemo [address] [place] [address] Hematocrit (Bld) [Volume fraction] 41.7 % Low 42.0-52.0 [facility] Comment on above: Performed By: #### 2 924906 #### MIKE Ackermano [facility] [place] [address] Hemoglobin (Bld) [Mass/Vol] 14.1 g/dL Normal 13.5-18.0 [facility] Comment on above: Performed By: #### 2 119215 #### MIKE RemHemo [address] [place] [address], [place] [address] MCH (RBC) [Entitic mass] 31.5 pg High 27.0-31.0 [facility] Comment on above: Performed By: #### 2 630429 #### MIKE RemHemo [address] [place] [address] MCHC (RBC) [Mass/Vol] 33.7 g/dL Normal 33.0-37.[address] [facility] Comment on above: Performed By: #### 2 329658 #### MIKE RemHemo [address] [place] [address] MCV (RBC) [Entitic vol] 93.5 fL Normal 78.0-100.0 [facility] Comment on above: Performed By: #### 2 459056 #### MIKE RemHemo [facility] [place] [address] Platelet mean volume (Bld) [Entitic vol] 10.0 fL Normal 7.4-11.0 [facility] Comment on above: Performed By: #### 2 342385 #### MKIE RemHemo [facility] [place] [address] Platelets (Bld) [#/Vol] 218 E3/mcL Normal 130-400 [facility] Comment on above: Performed By: #### 2 930710 #### MIKE RemHemo [facility] [place] [address] RBC (Bld) [#/Vol] 4.46 E6/mcL Normal 3.90-6.10 [facility] Comment on above: Performed By: #### 2 809259 #### MIKE RemHemo [address] [place] [address] WBC (Bld) [#/Vol] 7.5 E3/mcL Normal 3.6-11.0 [facility] Comment on above: Performed By: #### 2 264546 #### MIKE RemHemo [address] [place] [address] CMPon 03-03-2019 Albumin [Mass/Vol] 4.1 g/dL Normal 3.4-5.0 [facility] Comment on above: Performed By: #### 2 716498 #### [facility] [employer] [address] [place] [address] Albumin/Globulin [Mass ratio] 1.6 {ratio} Normal 1.1-1.9 [facility] Comment on above: Performed By: #### 2 249561 #### [facility] [employer] [address] [place] [address] Alk Phos 83 Int._Unit/L Normal 33-136 [facility] Comment on above: Performed By: #### 2 411028 #### [facility] [employer] [address] [place], [place] [address] ALT [Catalytic activity/Vol] 13 Int._Unit/L Normal 10-52 [facility] Comment on above: Performed By: #### 2 433447 #### [facility] [employer] [address] [place], [place] [address] Anion gap [Moles/Vol] 9 mmol/L Low 10-[address] [facility] Comment on above: Performed By: #### 2 350393 #### [facility] [employer] [address] [place], [place] [address] AST [Catalytic activity/Vol] 16 Int._Unit/L Normal 9-39 [facility] Comment on above: Performed By: #### 2 891500 #### [facility] [employer] [address] [place] [address] Bili Total 0.55 mg/dL Normal 0.00-1.20 [facility] Comment on above: Performed By: #### 2 821931 #### [facility] [employer] [address] [place] [address] Calcium [Mass/Vol] 9.3 mg/dL Normal 8.6-10.3 [facility] Comment on above: Performed By: #### 2 602427 #### [facility] [employer] [address] [place] [address] Chloride [Moles/Vol] 105 mmol/L Normal 98-107 [facility] Comment on above: Performed By: #### 2 238448 #### [facility] [employer] [address] [place] [address] CO2 [Moles/Vol] 28.0 mmol/L Normal 21.0-32.0 [facility] Comment on above: Performed By: #### 2 769607 #### MIKE [employer] [address] [place] [address] Creatinine [Mass/Vol] 1.0 mg/dL Normal 0.5-1.[address] [facility] Comment on above: Performed By: #### 2 409133 #### MIKE [employer] [address] [place] [address] Globulin (S) [Mass/Vol] 3.0 g/dL Normal 2.0-4.0 [facility] Comment on above: Performed By: #### 2 958096 #### MIKE [employer] [address] [place] [address] Glucose [Mass/Vol] 273 mg/dL High 70-99 [facility] Comment on above: Performed By: #### 2 385872 #### MIKE [employer] [address] [place] [address] Potassium [Moles/Vol] 4.2 mmol/L Normal 3.5-5.[address] [facility] Comment on above: Performed By: #### 2 733425 #### MIKE [employer] [address] [place] [address] Protein [Mass/Vol] 6.6 g/dL Normal 6.4-8.2 [facility] Comment on above: Performed By: #### 2 116265 #### MIKE [employer] [address] [place] [address] Sodium [Moles/Vol] 138 mmol/L Normal 136-145 [facility] Comment on above: Performed By: #### 2 261477 #### MIKE [employer] [address] [place] [address] Urea nitrogen [Mass/Vol] 20 mg/dL Normal 6-23 [facility] Comment on above: Performed By: #### 2 760246 #### MIKE [employer] [address] [place] [address] Urea nitrogen/Creatinine [Mass ratio] 20.0 ratio Normal 5.4-30.0 [facility] Comment on above: Performed By: #### 2 034625 #### MIKE [employer] [address] [place] [address] Free T4on 05-03-2019 Free T4 [Mass/Vol] 0.98 ng/dL Normal 0.58-1.64 [facility] Comment on above: Performed By: #### 2 581455 #### MIKE RodriguezSqueezeCMM [facility] [place] [address] [id number] 03-03-2019 HbA1c (Bld) [Mass fraction] 8.4 % High 4.0-6.3 [facility] Comment on above: Performed By: #### 2 198182 #### MIKE RodriguezSqueezeCMM [facility] [place] [address] Lipid Profileon 03-03-2019 Cholesterol [Mass/Vol] 164 mg/dL Normal 0-199 [facility] Comment on above: Result Comment: TOTA L CHOLEESTEROL: <200 NORMAL 200 - 239 BORDERLINE HIGH >240 HIGH Performed By: #### 2 873713 #### MIKE RodriguezSqueezeCMM [facility] [place] [address] Cholesterol in HDL [Mass/Vol] 53 mg/dL Normal 40-60 [facility] Comment on above: Performed By: #### 2 978791 #### MIKE RodriguezSqueezeCMM [facility] [place] [address] Cholesterol in LDL [Mass/Vol] 98 mg/dL Normal 0-130 [facility] Comment on above: Result Comment: <100 OPTIMAL 100-129 NEAR / ABOVE OPTIMAL 130-159 BORDERLINE HIGH 160-189 HIGH >190 VERY HIGH CALC LDL NOT VALID WHEN TRIGLYCERIDE IS >400 MG/DL Performed By: #### 2 575628 #### MIKE [employer] [facility] [place] [address] Cholesterol in VLDL [Mass/Vol] 13 mg/dL Normal 0-40 [facility] Comment on above: Performed By: #### 2 989344 #### MIKE RemSqueezeCMM [address] [place] [address] Triglyceride [Mass/Vol] 66 mg/dL Normal 0-149 [facility] Comment on above: Result Comment: AGE DESIRABLE BORDERLINE HIGH 91 D - 9 Y 0 - 74 75 - 99 > 100 10 - 19 Y 0 - 89 90 - 129 > 130 20 -24 Y 0 - 114 115 - 149 > 150 > 25 0 - 149 150 - 199 200 - 499 Performed By: #### 2 491502 #### MIKE RemSqueezeCMM [facility] [place] [address] Microalb/Creat Ratioon 03-03 Creatinine [Mass/Vol] 111.0 mg/dL Normal 20.0-300.0 [facility] Comment on above: Performed By: #### 1 [id number] #### MIKE [employer] [facility] [place] [address] Creatinine [Mass/Vol] 95 ug/mg High 0-[address] [facility] Comment on above: Performed By: #### 1 0907355 #### MIKE [employer] [address] [place] [address] Ur Microalbumin 10.6 mg/dL High 0.0-1.9 [facility] Comment on above: Performed By: #### 1 2128749 #### MIKE [employer] [address] [place] [address] TSHon 03-03-2019 TSH Qn 0.52 mcIU/mL Normal 0.30-5.60 [facility] Comment on above: Performed By: #### 2 075386 #### MIKE [employer] [address] [place], [place] [address] eGFRon 03-03-2019 GFR/1.73 sq M predicted among non-blacks MDRD (S/P/Bld) [Vol rate/Area] mL/min/{1.73_m2} Normal [facility] Comment on above: Order Comment: Order added by Discern Expert. Performed By: #### 1 [id number] #### MIKE [employer] [address] [place], [place] [address] XR Spine Lumbosacral Complet e w/ Bendingon 02-08-2019 XR Spine Lumbosacral Complete w/ Bending Exam Date/Time: 02/08/2019 11:16 EDT Reason for Exam: M54.16 Report STUDY: XR Spine Lumbosacral Complete w/ Bending; 02/08/2019 11:16 am INDICATION: M54.16. COMPARISON: 08/12/2018 ACCESSION NUMBER(S): [id number] ORDERING CLINICIAN: Yamilex Muro FINDINGS: 8 views of the lumbar spine including supine and standing AP, lateral and lateral flexion and extension views were obtained. There is no acute fracture identified. There is mild retrolisthesis of L2 on L3 and of L3 on L4. Mnoi-ca-utqmgcdm disc space narrowing and marginal osteophyte formation [...] by: Jaret Walker MD Technologist: GEE Normal [facility] CMPon 11-02-2018 Albumin [Mass/Vol] 4.2 g/dL Normal 3.4-5.0 [facility] Comment on above: Performed By: #### 2 110213 #### MIKE RemSqueezeCMM [address] [place] [address] Albumin/Globulin [Mass ratio] 1.8 {ratio} Normal 1.1-1.9 [facility] Comment on above: Performed By: #### 2 535492 #### MIKE RemSqueezeCMM [address] [place] [address] Alk Phos 98 Int._Unit/L Normal 33-136 [facility] Comment on above: Performed By: #### 2 561796 #### MIKE [employer]Chem [facility] [place] [address] ALT [Catalytic activity/Vol] 18 Int._Unit/L Normal 10-52 [facility] Comment on above: Performed By: #### 2 [id number] #### [facility] [employer] [address] [place] [address] Anion gap [Moles/Vol] 10 mmol/L Normal 10-[address] [facility] Comment on above: Performed By: #### 2 [id number] #### [facility] [employer] [address] [place] [address] AST [Catalytic activity/Vol] 17 Int._Unit/L Normal 9-39 [facility] Comment on above: Performed By: #### 2 [id number] #### [facility] [employer] [address] [place] [address] Bili Total 0.39 mg/dL Normal 0.00-1.20 [facility] Comment on above: Performed By: #### 2 [id number] #### [facility] [employer] [address] [place] [address] Calcium [Mass/Vol] 9.7 mg/dL Normal 8.6-10.3 [facility] Comment on above: Performed By: #### 2 [id number] #### [facility] [employer] [address] [place] [address] Chloride [Moles/Vol] 106 mmol/L Normal 98-107 [facility] Comment on above: Performed By: #### 2 [id number] #### [facility] [employer] [facility] [place] [address] CO2 [Moles/Vol] 27.0 mmol/L Normal 21.0-32.0 [facility] Comment on above: Performed By: #### 2 [id number] #### [facility] [employer] [address] [place] [address] Creatinine [Mass/Vol] 1.2 mg/dL Normal 0.5-1.[address] [facility] Comment on above: Performed By: #### 2 [id number] #### [facility] [employer] [facility] [place] [address] Globulin (S) [Mass/Vol] 2.0 g/dL Normal 2.0-4.0 [facility] Comment on above: Performed By: #### 2 [id number] #### [facility] [employer] [address] [place] [address] Glucose [Mass/Vol] 307 mg/dL High 70-99 [facility] Comment on above: Performed By: #### 2 [id number] #### [facility] [employer] [address] [place] [address] Potassium [Moles/Vol] 3.9 mmol/L Normal 3.5-5.[address] [facility] Comment on above: Performed By: #### 2 [id number] #### [facility] [employer] [address] [place] [address] Protein [Mass/Vol] 6.5 g/dL Normal 6.4-8.2 [facility] Comment on above: Performed By: #### 2 [id number] #### [facility] [employer] [address] [place] [address] Sodium [Moles/Vol] 139 mmol/L Normal 136-145 [facility] Comment on above: Performed By: #### 2 [id number] #### [facility] [employer] [address] [place] [address] Urea nitrogen [Mass/Vol] 23 mg/dL Normal 6-23 [facility] Comment on above: Performed By: #### 2 [id number] #### [facility] [employer] [facility] [place] [address] Urea nitrogen/Creatinine [Mass ratio] 19.2 ratio Normal 5.4-30.0 [facility] Comment on above: Performed By: #### 2 [id number] #### [facility] [employer] [facility] [place] [address] GfrH5axt 11-02-2018 HbA1c (Bld) [Mass fraction] 8.4 % High 4.0-6.3 [facility] Comment on above: Performed By: #### 3 [id number] #### MIKE Chemistry Manual Subsection [address] [place] [address] eGFRon 11-02-2018 GFR/1.73 sq M predicted among non-blacks MDRD (S/P/Bld) [Vol rate/Area] mL/min/{1.73_m2} Normal [facility] Comment on above: Order Comment: Order added by Discern Expert. Performed By: #### 1 [id number] #### [facility] [employer] [address] [place], [place] [id number] XR Spine Lumbar w/ Obliqueso n 08-13-2018 XR Spine Lumbar w/ Obliques Exam Date/Time: 08/12/2018 14:38 EDT Reason for Exam: low back pain with left sided sciatica Report STUDY: XR Spine Lumbar w/ Obliques; 08/12/2018 2:38 pm INDICATION: low back pain with left sided sciatica. COMPARISON: None. ACCESSION NUMBER(S): [id number] ORDERING CLINICIAN: Nancy Mirza FINDINGS: Five views of the lumbar spine including AP, lateral, lateral cone-down and bilateral oblique views were obtained. There is no acute fracture identified. There is mild retrolisthesis of L2 on L3 and of L3 on L4. [id number] disc space narrowing and marginal osteophyte formation [...] Signed by: Jaret Walker MD Technologist: KAVITA [facility] Carotid Duplexon 02-09-2018 Carotid Duplex Non-Invasive Vascular Patient: TR Titus [facility] Rec#: [id number] (Age): 1945(72y) Study Date: 02/09/2018 Room#: Type: Sex: M Reading: AALIYAH Reading: Flo Abdi DO, RPVI Referring: NANCY MIRZA JOHN 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: Christie Trinidad Procedure Info: [id number]... Study Quality: Carotid Duplex: adequate Diagnosis: I65.23 [...] Carotid Duplex Interface, Rad [facility] - 02/09/2018 4:37 PM EDT Non-Invasive Vascular Patient: TR Titus [facility] Rec#: [id number] (Age): 1945(72y) Study Date: 02/09/2018 Room#: Type: Sex: M Reading: AALIYAH Reading: Flo Abdi DO, RPVI Referring: NANCY MIRZA JOHN 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: Christie Trinidad Procedure Info: [id number]... Study Quality: Carotid Duplex: adequate Diagnosis: I65.23 [...] Flo Abdi DO, RPVI Invalid Interpretation Code [facility] [place] Vital Signs Date Time Vital Sign Value Performing Clinician Facility 04-10-2025 15:10-0400 Diastolic blood pressure 78 mm[Hg] Ryley Jeter MD Work Phone: [facility] 04-10-2025 15:10-0400 Heart rate 80 /min Ryley Jeter MD Work Phone: [facility] 04-10-2025 15:10-0400 Systolic blood pressure 144 mm[Hg] Ryley Jeter MD Work Phone: [facility] 04-10-2025 13:39-0400 Respiratory rate 16 /min Ryley Jeter MD Work Phone: [facility] 04-10-2025 09:38-0400 Inhaled oxygen flow rate 2 L/min Ryley Jeter MD Work Phone: [facility] 04-10-2025 09:38-0400 SaO2% (BldA) [Mass fraction] 98 % Ryley Jeter MD Work Phone: [facility] 04-10-2025 08:45-0400 Body temperature 97.9 [degF] Ryley Jeter MD Work Phone: [facility] 04-10-2025 03:42-0400 Body mass index (BMI) [Ratio] 22.3 kg/m2 Ryley Jeter MD Work Phone: [facility] 04-10-2025 03:42-0400 Body weight 64.7 kg Ryley Jeter MD Work Phone: [facility] 04-10-2025 00:32-0400 Inhaled oxygen concentration 30 % Ryley Jeter MD Work Phone: [facility] 04-09-2025 14:07-0400 Body height 170.18 cm Ryley Jeter MD Work Phone: [facility] 04-03-2025 05:40-0400 Heart rate 110 /min Ryley Jeter MD Work Phone: [facility] 04-03-2025 05:40-0400 Inhaled oxygen concentration 30 % Ryley Jeter MD Work Phone: [facility] 04-03-2025 05:40-0400 Respiratory rate 21 /min Ryley Jeter MD Work Phone: [facility] 04-03-2025 05:40-0400 SaO2% (BldA) [Mass fraction] 98 % Ryley Jeter MD Work Phone: [facility] 04-03-2025 05:17-0400 Body height 170.18 cm Ryley Jeter MD Work Phone: [facility] 04-03-2025 05:17-0400 Body mass index (BMI) [Ratio] 21.2 kg/m2 Ryley Jeter MD Work Phone: [facility] 04-03-2025 05:17-0400 Body temperature 98 [degF] Ryley Jeter MD Work Phone: [facility] 04-03-2025 05:17-0400 Body weight 61.5 kg Ryley Jeter MD Work Phone: [facility] 04-03-2025 05:17-0400 Diastolic blood pressure 77 mm[Hg] Ryley Jeter MD Work Phone: [facility] 04-03-2025 05:17-0400 Systolic blood pressure 167 mm[Hg] Ryley Jeter MD Work Phone: [facility] 04-03-2025 03:00-0400 Inhaled oxygen flow rate 4 L/min Ryley Jeter MD Work Phone: [facility] 03-12-2025 13:50-0400 Body mass index (BMI) [Ratio] 21.9 kg/m2 Paty Ortega CYCLE TOURING GUIDE Work Phone: [facility] 03-12-2025 13:50-0400 Body weight 63.41 kg Paty Ortega CYCLE TOURING GUIDE Work Phone: [facility] 03-12-2025 13:50-0400 Diastolic blood pressure 61 mm[Hg] Paty Ortega CYCLE TOURING GUIDE Work Phone: [facility] 03-12-2025 13:50-0400 Heart rate 69 /min Paty Ortega CYCLE TOURING GUIDE Work Phone: [facility] 03-12-2025 13:50-0400 Systolic blood pressure 166 mm[Hg] Paty Ortega CYCLE TOURING GUIDE Work Phone: [facility] 03-09-2025 09:42-0400 Body height 170.2 cm Woo Small MD Work Phone: [facility] 03-09-2025 09:42-0400 Body mass index (BMI) [Ratio] 21.9 kg/m2 Woo Small MD Work Phone: [facility] 03-09-2025 09:42-0400 Body weight 63.41 kg Woo Small MD Work Phone: [facility] 03-09-2025 09:42-0400 Diastolic blood pressure 54 mm[Hg] Woo Small MD Work Phone: [facility] 03-09-2025 09:42-0400 Heart rate 73 /min Woo Small MD Work Phone: [facility] 03-09-2025 09:42-0400 SaO2% (BldA) [Mass fraction] 98 % Woo Small MD Work Phone: [facility] 03-09-2025 09:42-0400 Systolic blood pressure 172 mm[Hg] Woo Small MD Work Phone: [facility] 02-26-2025 13:01-0400 Body height 172.7 cm Ayanna Albert DO Work Phone: [facility] 02-26-2025 13:01-0400 Body mass index (BMI) [Ratio] 21.47 kg/m2 Ayanna Albert Work Phone: [facility] 02-26-2025 13:01-0400 Body weight 64.05 kg Ayanna Albert DO Work Phone: [facility] 02-26-2025 13:01-0400 Diastolic blood pressure 68 mm[Hg] Ayanna Albert DO Work Phone: [facility] 02-26-2025 13:01-0400 Heart rate 72 /min Ayanna Albert DO Work Phone: [facility] 02-26-2025 13:01-0400 Systolic blood pressure 158 mm[Hg] Ayanna Albert DO Work Phone: [facility] 11-14-2024 10:44-0500 Diastolic blood pressure 61 mm[Hg] Woo Day Work Phone: [facility] 11-14-2024 10:44-0500 Heart rate 57 /min Woo Day Work Phone: [facility] 11-14-2024 10:44-0500 SaO2% (BldA) [Mass fraction] 96 % Woo Work Phone: [facility] 11-14-2024 10:44-0500 Systolic blood pressure 185 mm[Hg] Woo Day Work Phone: [facility] 11-14-2024 10:37-0500 Body height 170.2 cm Woo Day Work Phone: [facility] 11-14-2024 10:37-0500 Body mass index (BMI) [Ratio] 23.57 kg/m2 Woo Day Work Phone: [facility] 11-14-2024 10:37-0500 Body weight 68.27 kg Woo Day Work Phone: [facility] 11-13-2024 11:16-0500 Body mass index (BMI) [Ratio] 23.45 kg/m2 Paty Ortega CYCLE TOURING GUIDE Work Phone: [facility] 11-13-2024 11:16-0500 Body weight 67.9 kg Paty Ortega CYCLE TOURING GUIDE Work Phone: [facility] 11-13-2024 11:16-0500 Diastolic blood pressure 51 mm[Hg] Paty Ortega CYCLE TOURING GUIDE Work Phone: [facility] 11-13-2024 11:16-0500 Heart rate 71 /min Paty Ortega CYCLE TOURING GUIDE Work Phone: [facility] 11-13-2024 11:16-0500 Systolic blood pressure 107 mm[Hg] Paty Ortega CYCLE TOURING GUIDE Work Phone: [facility] 11-09-2024 10:42-0500 Diastolic blood pressure 64 mm[Hg] Kristy Parker MD Work Phone: [facility] 11-09-2024 10:42-0500 Heart rate 58 /min Kristy Parker MD Work Phone: [facility] 11-09-2024 10:42-0500 Systolic blood pressure 160 mm[Hg] Kristy Parker MD Work Phone: [facility] 11-09-2024 10:32-0500 Body height 170.2 cm Kristy Parker MD Work Phone: [facility] 11-09-2024 10:32-0500 Body mass index (BMI) [Ratio] 23.18 kg/m2 Kristy Parker MD Work Phone: [facility] 11-09-2024 10:32-0500 Body weight 67.13 kg Kristy Parker MD Work Phone: [facility] 11-07-2024 09:54-0500 Diastolic blood pressure 61 mm[Hg] Brock Groves MD Work Phone: [facility] 11-07-2024 09:54-0500 Systolic blood pressure 143 mm[Hg] Brock Groves MD Work Phone: [facility] 11-07-2024 09:51-0500 Body height 170.2 cm Brock Groves MD Work Phone: [facility] 11-07-2024 09:51-0500 Body mass index (BMI) [Ratio] 23.02 kg/m2 Brock Groves MD Work Phone: [facility] 11-07-2024 09:51-0500 Body temperature 97.39 [degF] Brock Groves MD Work Phone: [facility] 11-07-2024 09:51-0500 Body weight 66.68 kg Brock Groves MD Work Phone: [facility] 11-07-2024 09:51-0500 Heart rate 63 /min Brock Groves MD Work Phone: [facility] 11-07-2024 09:51-0500 SaO2% (BldA) [Mass fraction] 100 % Brock Groves MD Work Phone: [facility] 10-28-2024 11:06-0500 Diastolic blood pressure 51 mm[Hg] Nidia Garay MD Work Phone: [facility] 10-28-2024 11:06-0500 Heart rate 68 /min Nidia Garay MD Work Phone: [facility] 10-28-2024 11:06-0500 Respiratory rate 14 /min Nidia Garay MD Work Phone: [facility] 10-28-2024 11:06-0500 SaO2% (BldA) [Mass fraction] 94 % Nidia Garay MD Work Phone: [facility] 10-28-2024 11:06-0500 Systolic blood pressure 153 mm[Hg] Nidia Garay MD Work Phone: [facility] 10-28-2024 07:24-0500 Body temperature 97.59 [degF] Nidia Garay MD Work Phone: [facility] 10-28-2024 05:11-0500 Body mass index (BMI) [Ratio] 22.44 kg/m2 Nidia Garay MD Work Phone: [facility] 10-28-2024 05:11-0500 Body weight 65 kg Nidia Garay MD Work Phone: [facility] 10-27-2024 16:36-0500 Body height 170.2 cm Nidia Garay MD Work Phone: [facility] 10-27-2024 14:18-0500 SaO2% (BldA) [Mass fraction] 97.3 % Nidia Garay MD Work Phone: [facility] 10-18-2024 13:46-0500 Diastolic blood pressure 61 mm[Hg] Woo Small MD Work Phone: [facility] 10-18-2024 13:46-0500 Heart rate 67 /min Woo Small MD Work Phone: [facility] 10-18-2024 13:46-0500 SaO2% (BldA) [Mass fraction] 100 % Woo Work Phone: [facility] 10-18-2024 13:46-0500 Systolic blood pressure 103 mm[Hg] Woo Day Work Phone: [facility] 10-18-2024 13:27-0500 Body height 172.7 cm Woo Day Work Phone: [facility] 10-18-2024 13:27-0500 Body mass index (BMI) [Ratio] 22.52 kg/m2 Woo Day Work Phone: [facility] 10-18-2024 13:27-0500 Body weight 67.18 kg Woo Day Work Phone: [facility] 08-29-2024 13:04-0400 Diastolic blood pressure 72 mm[Hg] Ayanna Young DO Work Phone: [facility] 08-29-2024 13:04-0400 Systolic blood pressure 168 mm[Hg] Ayanna Young DO Work Phone: [facility] 08-29-2024 12:57-0400 Body height 172.7 cm Ayanna Young DO Work Phone: [facility] 08-29-2024 12:57-0400 Body mass index (BMI) [Ratio] 22.72 kg/m2 Ayanna Young DO Work Phone: [facility] 08-29-2024 12:57-0400 Body weight 67.77 kg Ayanna Young DO Work Phone: [facility] 08-29-2024 12:57-0400 Heart rate 64 /min Ayanna Young DO Work Phone: [facility] 07-21-2024 14:12-0400 Diastolic blood pressure 68 mm[Hg] Paty Ortega CYCLE TOURING GUIDE Work Phone: [facility] 07-21-2024 14:12-0400 Systolic blood pressure 166 mm[Hg] Paty Ortega CNP Work Phone: [facility] 07-21-2024 13:38-0400 Body mass index (BMI) [Ratio] 22.44 kg/m2 Paty Ortega CYCLE TOURING GUIDE Work Phone: [facility] 07-21-2024 13:38-0400 Body weight 66.95 kg Paty Ortega CNP Work Phone: [facility] 07-21-2024 13:38-0400 Heart rate 69 /min Paty Ortega CNP Work Phone: [facility] 04-24-2024 10:09-0400 Diastolic blood pressure 70 mm[Hg] Woomert Small MD Work Phone: [facility] Comment on above: Manual 04-24-2024 10:09-0400 Systolic blood pressure 150 mm[Hg] Woo Day Work Phone: [facility] Comment on above: Manual 04-24-2024 09:44-0400 Body height 172.7 cm Woomert Small MD Work Phone: [facility] 04-24-2024 09:44-0400 Body mass index (BMI) [Ratio] 22.43 kg/m2 Woo Day Work Phone: [facility] 04-24-2024 09:44-0400 Body weight 66.91 kg Woomert Small MD Work Phone: [facility] 04-24-2024 09:44-0400 Heart rate 53 /min Woomert Small MD Work Phone: [facility] 04-24-2024 09:44-0400 SaO2% (BldA) [Mass fraction] 96 % Woo Day Work Phone: [facility] 02-24-2024 13:44-0400 Body height 172.7 cm Madie BERMAN DNP Work Phone: [facility] 02-24-2024 13:44-0400 Body mass index (BMI) [Ratio] 23.11 kg/m2 Madie BERMAN DNP Work Phone: [facility] 02-24-2024 13:44-0400 Body weight 68.95 kg Madie Albert APRN-CYCLE TOURING GUIDE, DNP Work Phone: [facility] 02-24-2024 13:44-0400 Diastolic blood pressure 68 mm[Hg] Madie Albert APRN-CYCLE TOURING GUIDE, DNP Work Phone: [facility] 02-24-2024 13:44-0400 Heart rate 76 /min Madie Albert SENIOR SALES OPERATIONS ANALYST-CYCLE TOURING GUIDE, DNP Work Phone: [facility] 02-24-2024 13:44-0400 Systolic blood pressure 142 mm[Hg] Madie Albert APRN-CYCLE TOURING GUIDE, DNP Work Phone: [facility] 02-18-2024 12:48-0400 Body mass index (BMI) [Ratio] 23.11 kg/m2 Paty Ortega CYCLE TOURING GUIDE Work Phone: [facility] 02-18-2024 12:48-0400 Body weight 68.95 kg Paty Ortega CYCLE TOURING GUIDE Work Phone: [facility] 02-18-2024 12:48-0400 Diastolic blood pressure 79 mm[Hg] Paty Ortega CYCLE TOURING GUIDE Work Phone: [facility] 02-18-2024 12:48-0400 Heart rate 67 /min Paty Ortega CYCLE TOURING GUIDE Work Phone: [facility] 02-18-2024 12:48-0400 Systolic blood pressure 131 mm[Hg] Paty Ortega CYCLE TOURING GUIDE Work Phone: [facility] 01-14-2024 11:02-0400 Body height 172.7 cm Aylin Lacy CYCLE TOURING GUIDE Work Phone: [facility] 01-14-2024 11:02-0400 Body mass index (BMI) [Ratio] 24.01 kg/m2 Aylin Lacy CYCLE TOURING GUIDE Work Phone: [facility] 01-14-2024 11:02-0400 Body weight 71.62 kg Aylin Lacy CYCLE TOURING GUIDE Work Phone: [facility] 01-14-2024 11:02-0400 Diastolic blood pressure 78 mm[Hg] Aylin Lacy CYCLE TOURING GUIDE Work Phone: [facility] 01-14-2024 11:02-0400 Heart rate 70 /min Aylin Lacy CYCLE TOURING GUIDE Work Phone: [facility] 01-14-2024 11:02-0400 SaO2% (BldA) [Mass fraction] 94 % Aylin Lacy CYCLE TOURING GUIDE Work Phone: [facility] 01-14-2024 11:02-0400 Systolic blood pressure 139 mm[Hg] Aylin Lacy CYCLE TOURING GUIDE Work Phone: [facility] 12-01-2023 08:00-0500 Body temperature 97.9 [degF] Kathleen Story MD Work Phone: [facility] 12-01-2023 08:00-0500 Diastolic blood pressure 73 mm[Hg] Kathleen Story MD Work Phone: [facility] 12-01-2023 08:00-0500 Heart rate 91 /min Kathleen Story MD Work Phone: [facility] 12-01-2023 08:00-0500 Respiratory rate 18 /min Kathleen Story MD Work Phone: [facility] 12-01-2023 08:00-0500 SaO2% (BldA) [Mass fraction] 94 % Kathleen Story MD Work Phone: [facility] 12-01-2023 08:00-0500 Systolic blood pressure 134 mm[Hg] Kathleen Story MD Work Phone: [facility] 12-01-2023 06:00-0500 Body mass index (BMI) [Ratio] 23.96 kg/m2 Kathleen Story MD Work Phone: [facility] 12-01-2023 06:00-0500 Body weight 69.4 kg Kathleen Story MD Work Phone: [facility] 11-27-2023 04:06-0500 SaO2% (BldA) [Mass fraction] 96.0 % Kathleen Story MD Work Phone: [facility] 11-27-2023 03:00-0500 Body height 170.2 cm Kathleen Story MD Work Phone: [facility] 11-27-2023 01:39-0500 Diastolic blood pressure 79 mm[Hg] Ger Bansal DO Work Phone: [facility] 11-27-2023 01:39-0500 Heart rate 77 /min Ger Bansal DO Work Phone: [facility] 11-27-2023 01:39-0500 Respiratory rate 20 /min Ger Bansal DO Work Phone: [facility] 11-27-2023 01:39-0500 SaO2% (BldA) [Mass fraction] 95 % Ger Bansal DO Work Phone: [facility] 11-27-2023 01:39-0500 Systolic blood pressure 148 mm[Hg] Ger Bansal DO Work Phone: [facility] 11-26-2023 21:22-0500 Body height 172.7 cm Ger Bansal DO Work Phone: [facility] 11-26-2023 21:22-0500 Body mass index (BMI) [Ratio] 22.5 kg/m2 Ger Bansal DO Work Phone: [facility] 11-26-2023 21:22-0500 Body temperature 97.11 [degF] Ger Bansal DO Work Phone: [facility] 11-26-2023 21:22-0500 Body weight 67.13 kg Ger Bansal DO Work Phone: [facility] 10-21-2023 08:54-0500 Body height 172.7 cm Woo Small MD Work Phone: [facility] 10-21-2023 08:54-0500 Body mass index (BMI) [Ratio] 22.61 kg/m2 Woo Small MD Work Phone: [facility] 10-21-2023 08:54-0500 Body weight 67.45 kg Woo Small MD Work Phone: [facility] 10-21-2023 08:54-0500 Diastolic blood pressure 67 mm[Hg] Woo Small MD Work Phone: [facility] 10-21-2023 08:54-0500 Heart rate 65 /min Woo Samll MD Work Phone: [facility] 10-21-2023 08:54-0500 SaO2% (BldA) [Mass fraction] 99 % Woo Small MD Work Phone: [facility] 10-21-2023 08:54-0500 Systolic blood pressure 128 mm[Hg] Woo Small MD Work Phone: [facility] 10-13-2023 11:55-0500 SaO2% (BldA) [Mass fraction] 92 % Praful Pineda MD Work Phone: [facility] 10-13-2023 10:39-0500 Heart rate 97 /min Praful Pineda MD Work Phone: [facility] 10-13-2023 09:35-0500 Body height 171.5 cm Praful Pineda MD Work Phone: [facility] 10-13-2023 09:35-0500 Body mass index (BMI) [Ratio] 24.38 kg/m2 Praful Pineda MD Work Phone: [facility] 10-13-2023 09:35-0500 Body weight 71.7 kg Praful Pineda MD Work Phone: [facility] 10-12-2023 20:45-0500 Body temperature 98.1 [degF] Praful Pineda MD Work Phone: [facility] 10-12-2023 20:45-0500 Diastolic blood pressure 85 mm[Hg] Praful Pineda MD Work Phone: [facility] 10-12-2023 20:45-0500 Respiratory rate 16 /min Praful Pineda MD Work Phone: [facility] 10-12-2023 20:45-0500 Systolic blood pressure 123 mm[Hg] Praful Pineda MD Work Phone: [facility] 10-11-2023 01:56-0500 Body temperature 37.0 Praful Pineda MD Work Phone: [facility] 10-11-2023 01:56-0500 SaO2% (BldA) [Mass fraction] 93 % Praful Pineda MD Work Phone: [facility] 10-08-2023 11:12-0500 Diastolic blood pressure 66 mm[Hg] Mary Vargas MD Work Phone: [facility] 10-08-2023 11:12-0500 Heart rate 67 /min Mary Vargas MD Work Phone: [facility] 10-08-2023 11:12-0500 Systolic blood pressure 199 mm[Hg] Mary Vargas MD Work Phone: [facility] 10-08-2023 11:05-0500 Body mass index (BMI) [Ratio] 24.18 kg/m2 Mary Vargas MD Work Phone: [facility] 10-08-2023 11:05-0500 Body weight 72.12 kg Mary Vargas MD Work Phone: [facility] 08-25-2023 14:11-0400 Body weight 72.12 kg Ayanna Albert DO Work Phone: [facility] 08-25-2023 14:11-0400 Diastolic blood pressure 62 mm[Hg] Ayanna Albert DO Work Phone: [facility] 08-25-2023 14:11-0400 Heart rate 62 /min Ayanna Albert DO Work Phone: [facility] 08-25-2023 14:11-0400 Systolic blood pressure 144 mm[Hg] Ayanna Albert DO Work Phone: [facility] 07-27-2023 14:48-0400 Diastolic blood pressure 78 mm[Hg] Nancy Mirza Work Phone: [facility] Work Phone: 07-27-2023 14:48-0400 Systolic blood pressure 152 mm[Hg] Nancy Mirza Work Phone: [facility] Work Phone: 07-27-2023 14:45-0400 Body height 172.72 cm Nancy Mirza Work Phone: [facility] Work Phone: 07-27-2023 14:45-0400 Body mass index (BMI) [Ratio] 24.05 kg/m2 Nancy Mirza Work Phone: [facility] Work Phone: 07-27-2023 14:45-0400 Body surface area Derived from formula 1.85 m2 Nancy Mirza Work Phone: [facility] Work Phone: 07-27-2023 14:45-0400 Body weight 71.76 kg Nancy Mirza Work Phone: [facility] Work Phone: 07-27-2023 14:45-0400 Diastolic blood pressure 88 mm[Hg] Nancy Mirza Work Phone: [facility] Work Phone: 07-27-2023 14:45-0400 Heart rate 70 /min [facility] Work Phone: 07-27-2023 14:45-0400 SaO2% (BldA) [Mass fraction] 97 % Nancy Mirza Work Phone: [facility] Work Phone: 07-27-2023 14:45-0400 Systolic blood pressure 160 mm[Hg] Nancy Mirza Work Phone: [facility] Work Phone: 02-19-2023 13:02-0400 Body mass index (BMI) [Ratio] 24.33 kg/m2 Paty Ortega [employer] Work Phone: [facility] 02-19-2023 13:02-0400 Body weight 72.58 kg Paty Ortega [employer] Work Phone: [facility] 02-19-2023 13:02-0400 Diastolic blood pressure 83 mm[Hg] Paty Ortega [employer] Work Phone: [facility] 02-19-2023 13:02-0400 Heart rate 73 /min Paty Ortega [employer] Work Phone: [facility] 02-19-2023 13:02-0400 Systolic blood pressure 116 mm[Hg] Paty Ortega [employer] Work Phone: [facility] 10-19-2022 10:01-0500 Diastolic blood pressure 69 mm[Hg] Paty Ortega [employer]IDE Work Phone: [facility] 10-19-2022 10:01-0500 Heart rate 89 /min Paty Ortega [employer] Work Phone: [facility] 10-19-2022 10:01-0500 Systolic blood pressure 149 mm[Hg] Paty Ortega [employer] Work Phone: [facility] 10-19-2022 09:56-0500 Body mass index (BMI) [Ratio] 24.04 kg/m2 Paty Ortega [employer] Work Phone: [facility] 10-19-2022 09:56-0500 Body weight 71.71 kg Paty Ortega [employer] Work Phone: [facility] 06-19-2022 10:04-0400 Diastolic blood pressure 90 mm[Hg] Paty Ortega [employer] Work Phone: [facility] 06-19-2022 10:04-0400 Systolic blood pressure 184 mm[Hg] Paty Ortega [employer] Work Phone: [facility] 06-19-2022 09:40-0400 Heart rate 72 /min Paty Ortega [employer] Work Phone: [facility] 06-19-2022 09:36-0400 Body height 172.7 cm Paty Ortega [employer] Work Phone: [facility] 06-19-2022 09:36-0400 Body mass index (BMI) [Ratio] 24.48 kg/m2 Paty Ortega [employer] Work Phone: [facility] 06-19-2022 09:36-0400 Body weight 73.03 kg Paty Ortega [employer] Work Phone: [facility] 02-13-2022 11:13-0400 Diastolic blood pressure 74 mm[Hg] Mary Vargas MD Work Phone: [facility] 02-13-2022 11:13-0400 Systolic blood pressure 138 mm[Hg] Mary Vargas MD Work Phone: [facility] 02-13-2022 11:09-0400 Body height 172.7 cm Mary Vargas MD Work Phone: [facility] 02-13-2022 11:09-0400 Body mass index (BMI) [Ratio] 25.09 kg/m2 Mary Vargas MD Work Phone: [facility] 02-13-2022 11:09-0400 Body weight 74.84 kg Mary Vargas MD Work Phone: [facility] 02-13-2022 11:09-0400 Heart rate 71 /min Mary Vargas MD Work Phone: [facility] 10-13-2021 14:07-0500 Diastolic blood pressure 72 mm[Hg] Paty Ortega [employer] Work Phone: [facility] 10-13-2021 14:07-0500 Heart rate 74 /min Paty Ortega [employer] Work Phone: [facility] 10-13-2021 14:07-0500 Systolic blood pressure 163 mm[Hg] Paty Ortega [employer] Work Phone: [facility] 10-13-2021 13:59-0500 Body mass index (BMI) [Ratio] 24.89 kg/m2 Paty Ortega [employer] Work Phone: [facility] 10-13-2021 13:59-0500 Body weight 74.25 kg Paty Ortega [employer] Work Phone: [facility] 06-20-2021 14:38-0400 Diastolic blood pressure 68 mm[Hg] Paty Ortega [employer] Work Phone: [facility] 06-20-2021 14:38-0400 Heart rate 70 /min Paty Ortega [employer] Work Phone: [facility] 06-20-2021 14:38-0400 Systolic blood pressure 163 mm[Hg] Paty Ortega [employer]IDE Work Phone: [facility] 06-20-2021 14:33-0400 Body height 172.7 cm Paty Ortega [employer] Work Phone: [facility] 06-20-2021 14:33-0400 Body mass index (BMI) [Ratio] 25.32 kg/m2 Paty Ortega [employer] Work Phone: [facility] 06-20-2021 14:33-0400 Body weight 75.52 kg Paty Ortega [employer] Work Phone: [facility] 02-18-2021 15:24-0400 Body height 172.7 cm Mary Vargas MD Work Phone: [facility] 02-18-2021 15:24-0400 Body mass index (BMI) [Ratio] 25.54 kg/m2 Mary Vargas MD Work Phone: [facility] 02-18-2021 15:24-0400 Body weight 76.2 kg Mary Vargas MD Work Phone: [facility] 02-18-2021 15:24-0400 Diastolic blood pressure 70 mm[Hg] Mary Vargas MD Work Phone: [facility] 02-18-2021 15:24-0400 Heart rate 76 /min Mary Vargas MD Work Phone: [facility] 02-18-2021 15:24-0400 Systolic blood pressure 194 mm[Hg] Mary Vargas MD Work Phone: [facility] 10-18-2020 13:36-0500 BMI (Body Mass Index) 25.54 kg/m2 Paty [facility] 10-18-2020 13:36-0500 Body weight 76.2 kg Paty [facility] 10-18-2020 13:36-0500 BP Diastolic 69 mm[Hg] [facility] 10-18-2020 13:36-0500 BP Systolic 163 mm[Hg] Paty [facility] 10-18-2020 13:36-0500 Height 172.7 cm [facility] 10-18-2020 13:36-0500 Pulse (Heart Rate) 72 /min Paty [facility] 06-18-2020 10:01-0400 BMI (Body Mass Index) 25.39 kg/m2 Paty [facility] 06-18-2020 10:01-0400 Body weight 75.75 kg Paty [facility] 06-18-2020 10:01-0400 BP Diastolic 71 mm[Hg] [facility] 06-18-2020 10:01-0400 BP Systolic 172 mm[Hg] [facility] 06-18-2020 10:01-0400 Height 172.7 cm Paty [facility] 06-18-2020 10:01-0400 Pulse (Heart Rate) 72 /min [facility] 11-16-2019 10:40-0500 BMI (Body Mass Index) 25.09 kg/m2 Paty Ortega [facility] 11-16-2019 10:40-0500 Body weight 74.84 kg Paty Ortega [facility] 11-16-2019 10:40-0500 BP Diastolic 68 mm[Hg] Paty [facility] 11-16-2019 10:40-0500 BP Systolic 178 mm[Hg] Paty [facility] 11-16-2019 10:40-0500 Height 172.7 cm Paty [facility] 11-16-2019 10:40-0500 Pulse (Heart Rate) 75 /min Paty Ortega [facility] 07-17-2019 10:48-0400 BMI (Body Mass Index) 25.09 kg/m2 Keeley Patton [facility] 07-17-2019 10:48-0400 Body weight 74.84 kg Keeley Patton [facility] 07-17-2019 10:48-0400 BP Diastolic 69 mm[Hg] Keeley Patton [facility] 07-17-2019 10:48-0400 BP Systolic 152 mm[Hg] Keeley Patton [facility] 07-17-2019 10:48-0400 Height 172.7 cm Keeley Patton [facility] 07-17-2019 10:48-0400 Pulse (Heart Rate) 71 /min Keeley Patton [facility] 03-13-2019 12:07-0400 BMI (Body Mass Index) 25.24 kg/m2 Mary Vargas [facility] 03-13-2019 12:07-0400 Body weight 75.3 kg Mary Vargas [facility] 03-13-2019 12:07-0400 BP Diastolic 67 mm[Hg] Mary Vargas [facility] 03-13-2019 12:07-0400 BP Systolic 160 mm[Hg] Mary Vargas [facility] 03-13-2019 12:07-0400 Height 172.7 cm Mary Vargas [facility] 03-13-2019 12:07-0400 Pulse (Heart Rate) 72 /min Mary Vargas [facility] 11-11-2018 11:08-0500 BMI (Body Mass Index) 26 kg/m2 Keeley Patton [facility] 11-11-2018 11:08-0500 BP Diastolic 74 mm[Hg] Keeley Patton [facility] 11-11-2018 11:08-0500 BP Systolic 172 mm[Hg] Keeley Patton [facility] 11-11-2018 11:08-0500 Height 172.7 cm Keeley Patton [facility] 11-11-2018 11:08-0500 Pulse (Heart Rate) 71 /min Keeley Patton [facility] 11-11-2018 11:08-0500 Weight 77.56 kg Keeley Patton [facility] 07-05-2018 10:05-0400 BMI (Body Mass Index) 25.48 kg/m2 [facility] 07-05-2018 10:05-0400 BP Diastolic 58 mm[Hg] [facility] 07-05-2018 10:05-0400 BP Systolic 130 mm[Hg] [facility] 07-05-2018 10:05-0400 Height 172.7 cm [facility] 07-05-2018 10:05-0400 Pulse (Heart Rate) 84 /min [facility] 07-05-2018 10:05-0400 Weight 76.02 kg [facility] 02-28-2018 10:14-0400 BMI (Body Mass Index) 26.15 kg/m2 [facility] 02-28-2018 10:14-0400 BP Diastolic 64 mm[Hg] [facility] 02-28-2018 10:14-0400 BP Systolic 154 mm[Hg] [facility] 02-28-2018 10:14-0400 Height 172.7 cm [facility] 02-28-2018 10:14-0400 Pulse (Heart Rate) 76 /min [facility] 02-28-2018 10:14-0400 Weight 78.02 kg [facility] 10-29-2017 10:08-0500 BMI (Body Mass Index) 25.24 kg/m2 Mary Vargas [facility] Work Phone: 10-29-2017 10:08-0500 BP Diastolic 64 mm[Hg] Mary Vargas [facility] Work Phone: 10-29-2017 10:08-0500 BP Systolic 142 mm[Hg] Mary Vargas [facility] Work Phone: 10-29-2017 10:08-0500 Height 172.7 cm Mary Vargas [facility] Work Phone: 10-29-2017 10:08-0500 Pulse (Heart Rate) 72 /min Mary Vargas [facility] Work Phone: 10-29-2017 10:08-0500 Weight 75.3 kg Mary Vargas [facility] Work Phone: 06-17-2017 11:04-0400 BMI (Body Mass Index) 24.78 kg/m2 Ya Parker [facility] Work Phone: 06-17-2017 11:04-0400 BP Diastolic 62 mm[Hg] Ya Parker [facility] Work Phone: 06-17-2017 11:04-0400 BP Systolic 148 mm[Hg] Ya Parker [facility] Work Phone: 06-17-2017 11:04-0400 Height 172.7 cm Ya Parker [facility] Work Phone: 06-17-2017 11:04-0400 Pulse (Heart Rate) 64 /min Ya Parker [facility] Work Phone: 06-17-2017 11:04-0400 Weight 73.94 kg Ya Parker [facility] Work Phone: Encounters Encounter Date Encounter Type Care Provider Facility Start: 04-16-2025 End: 04-17-2025 Refill Ej Guidry MA [facility] Comment on above: Medication Refill Type 1 diabetes suzie itus with diabetic neuropathy (HCC) Start: 04-12-2025 ambulatory RYLEY JETER [facility] Ambulatory Start: 04-09-2025 Non-patient / Non-visit Dr. Kesha Arnold MD [facility] Work Phone: Start: 04-08-2025 Non-patient / Non-visit Dr. Cassandra Moore MD [facility] Work Phone: Start: 04-07-2025 Non-patient / Non-visit Dr. Cassandra Moore MD [facility] Work Phone: Start: 04-06-2025 Non-patient / Non-visit Dr. Cassandra Moore MD -[facility] Work Phone: Start: 04-06-2025 Non-patient / Non-visit Dr. Rosetta URIBE [facility] Start: 04-06-2025 Non-patient / Non-visit Dr. Landry August own [facility] Start: 04-05-2025 Non-patient / Non-[facility] Start: 04-05-2025 Non-patient / Non-visit Dr. Kesha Martin MD [facility] Start: 04-05-2025 Non-patient / Non-visit Dr. Kesha Arnold MD [facility] Work Phone: Start: 04-05-2025 Non-patient / Non-visit Dr. Landry August own [facility] Start: 04-04-2025 Non-patient / Non-visit Dr. Kesha Arnold MD [facility] Work Phone: Start: 04-03-2025 ambulatory Koffi Gibbs [facility] Start: 04-03-2025 Non-patient / Non-visit Dr. Koffi langley MD [facility] Start: [facility]-03[facility] Start: 04-03-2025 End: 04-10-2025 Evaluation and management of inpatient Dr. Dyana Hwang MD -Intensive Care Unit Work Phone: Start: 03-29-2025 End: 03-29-2025 ambulatory WOO SMALL [facility] Start: 03-27-2025 End: 03-27-2025 Follow-up encounter Woo Small MD Work Phone: [facility] Comment on above: Basic metabolic pane l Start: 03-12-2025 End: 03-12-2025 Office outpatient visit 25 minutes Paty Ortega [employer] Work Phone: [facility] [place] Comment on above: Type 1 diabetes suzie itus with diabetic neuropathy (HCC) (Primary Dx); Pure hypercholesterolemia; Essential hypertension Start: 03-12-2025 End: 03-12-2025 ambulatory PATY ORTEGA [facility] Ambulatory Start: 03-09-2025 End: 03-09-2025 Office outpatient visit 25 minutes Woo Small MD Work Phone: [facility] Comment on above: Coronary artery dise 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 (Primary Dx); NSTEMI (non-ST elevated myocardial infarction) (HCC); Hospital discharge follow-up Start: 03-09-2025 End: 03-09-2025 ambulatory RYLEY JETER [facility] Ambulatory Start: 02-28-2025 End: 03-05-2025 Evaluation and management of inpatient [facility] Start: 02-26-2025 End: 02-26-2025 Office outpatient visit 15 minutes Ayanna Albert DO Work Phone: [facility] Office Building Comment on above: 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); Essential hypertension; Pure hypercholesterolemia; Type 1 diabetes mellitus with diabetic neuropathy Start: 02-26-2025 End: 02-26-2025 ambulatory AYANNA M [facility] Ambulatory Start: 02-16-2025 End: 02-16-2025 Refill Paty Ortega [employer] Work Phone: [facility] Comment on above: Type 1 diabetes suzie itus with diabetic neuropathy (HCC) (Primary Dx) Start: 02-14-2025 End: 02-14-2025 Documentation procedure Ej Guidry MA [facility] Comment on above: Letter refaxed Start: 02-12-2025 End: 02-13-2025 Orders Only Paty Ortega CNP Work Phone: [facility] Start: 02-09-2025 [facility] Start: 02-06-2025 End: 02-06-2025 ambulatory Ryley Jeter MD Work Phone: [facility] Work Phone: Start: 02-06-2025 End: 02-06-[address] Kerwin Tamayo MD -Laboratory, [facility] Start: 02-06-2025 End: 02-06-2025 ambulatory Kerwin Tamayo Facility:[facility] Start: 01-01-2025 End: 01-01-2025 Refill Paty Ortega [employer] Work Phone: [facility] Comment on above: Type 1 diabetes suzie itus with diabetic neuropathy (HCC) (Primary Dx) Start: 12-08-2024 End: 12-08-2024 Refill Paty Ortega [employer] Work Phone: [facility] Comment on above: Type 1 diabetes suzie itus with diabetic neuropathy (HCC) Start: 11-20-2024 End: 11-20-2024 Refill Paty Ortega [employer] Work Phone: [facility] Start: 11-14-2024 End: 11-14-2024 Office outpatient visit 25 minutes Woo Small MD Work Phone: [facility] Comment on above: Coronary artery dise 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 (Primary Dx); Claudication in peripheral vascular disease; Bilateral carotid artery stenosis Start: 11-14-2024 End: 11-14-2024 ambulatory [facility] Ambulatory Start: 11-13-2024 End: 11-13-2024 Office outpatient visit 25 minutes Paty Ortega [employer] Work Phone: [facility] [place] Comment on above: Type 1 diabetes suzie itus with diabetic neuropathy (HCC) (Primary Dx); Pure hypercholesterolemia; Essential hypertension Start: 11-13-2024 End: 11-13-2024 ambulatory [facility] Ambulatory Start: 11-09-2024 End: 11-09-2024 Office outpatient new 60 minutes Sandi Phan PA-C Work Phone: [facility] Comment on above: Bilateral carotid ar radha stenosis Start: 11-09-2024 End: 11-09-2024 ambulatory SANDI PHAN [facility] Ambulatory Start: 11-07-2024 End: 11-07-2024 Office outpatient new 45 minutes Brock Groves MD Work Phone: [facility] Comment on above: Coronary artery dise 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 (Primary Dx) Start: 11-07-2024 End: 11-11-2024 Orders Only Sandi Phan PA-C Work Phone: [facility] Comment on above: Bilateral carotid ar radha stenosis (Primary Dx) Start: 11-06-2024 End: 11-07-2024 Refill Paty Ortega CNP Work Phone: [facility] Comment on above: Type 1 diabetes suzie itus with diabetic neuropathy (HCC) (Primary Dx) Start: 10-27-2024 End: 10-28-2024 ambulatory [facility] Start: 10-27-2024 End: 10-28-2024 Emergency department patient visit Elías Rodriguez MD Work Phone: [facility] Start: 10-23-2024 End: 10-23-2024 Chart abstracting Ej Guirdy MA [facility] Comment on above: Medication Refill Start: 10-18-2024 End: 10-18-2024 Office outpatient visit 25 minutes Woo Small MD Work Phone: [facility] Comment on above: Claudication in sheyla pheral vascular disease (HCC) (Primary Dx); Encounter for examination of blood pressure with abnormal findings; 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; Congestive heart failure, unspecified HF chronicity, unspecified heart failure type (HCC); Hypertensive emergency Start: 10-18-2024 End: 10-18-2024 Patient encounter status Woo Small MD Work Phone: [facility] Start: 10-18-2024 End: 10-18-2024 ambulatory WOO SMALL [facility] Ambulatory Start: 10-18-2024 End: 10-18-2024 Encounter for examination of blood pressure with abnormal findings WOO SMALL [facility] Ambulatory Start: 10-06-2024 End: 10-06-2024 Refill Luisa Easley RN [facility] Start: 10-04-2024 ambulatory EJ GUIDRY [facility] Ambulatory Start: 09-28-2024 ambulatory [facility] Start: 09-26-2024 End: 09-26-2024 Refill Paty Ortega CNP Work Phone: [facility] Comment on above: Type 1 diabetes suzie itus with diabetic neuropathy (HCC) (Primary Dx) Start: 09-21-2024 End: 09-21-2024 ambulatory Ryley Jeter Facility:[facility] Start: 09-13-2024 ambulatory Malika Corbin [facility] Start: 09-12-2024 ambulatory Bernardo Susan [facility] Start: 09-12-2024 End: 09-14-2024 Evaluation and management of inpatient [facility] Facility[facility] Start: 09-12-2024 ambulatory Young Koroma [facility] Start: 08-29-2024 End: 08-29-2024 Office outpatient visit 15 minutes Ayanna Albert DO Work Phone: [facility] Building Comment on above: 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); Essential hypertension; Type 1 diabetes mellitus with diabetic neuropathy Start: 08-29-2024 End: 08-29-2024 ambulatory AYANNA [facility] Ambulatory Start: 07-21-2024 End: 07-21-2024 Office outpatient visit 25 minutes Paty Ortega CNP Work Phone: [facility] [place] Comment on above: Type 1 diabetes suzie itus with diabetic neuropathy (HCC) (Primary Dx); Pure hypercholesterolemia; Essential hypertension Start: 07-21-2024 End: 07-21-2024 ambulatory RYLEY JETER [facility] Ambulatory Start: 07-07-2024 End: 07-07-2024 ambulatory NO ASSIGNED PCP GENERIC PROVIDER [facility] Start: 05-17-2024 End: 05-17-2024 ambulatory Ryley Jeter Facility:[facility] Start: 04-24-2024 End: 04-24-2024 Office outpatient visit 25 minutes Woo Small MD Work Phone: [facility] Comment on above: 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 (Primary Dx); Primary hypertension; Dyslipidemia Start: 04-24-2024 End: 04-24-2024 ambulatory RYLEY JETER [facility] Ambulatory Start: 03-28-2024 Refill Ej Guidry MA [facility] Comment on above: Medication Refill Start: 03-06-2024 Refill Paty Ortega CNP Work Phone: [facility] [place] Comment on above: Type 1 diabetes suzie itus with diabetic neuropathy (HCC) Start: 02-24-2024 End: 02-24-2024 Office outpatient visit 15 minutes Madie BERMAN DNP Work Phone: [facility] Office Building Comment on above: 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); Acute on chronic systolic (congestive) heart failure (Multi); Type 1 diabetes mellitus with diabetic neuropathy (Multi) Start: 02-18-2024 End: 02-18-2024 Office outpatient visit 25 minutes Paty Ortega CNP Work Phone: [facility] [place] Comment on above: Type 1 diabetes suzie itus with diabetic neuropathy (HCC) (Primary Dx); Pure hypercholesterolemia; Essential hypertension Start: 02-07-2024 End: 02-07-2024 ambulatory NO ASSIGNED PCP GENERIC PROVIDER [facility] Start: 01-17-2024 Refill Ej Guidry MA [facility] Comment on above: Medication Refill Start: 01-14-2024 End: 01-14-2024 Office outpatient visit 15 minutes Aylin Lacy [employer] Work Phone: [facility] Comment on above: Cardiovascular stres s test abnormal (Primary Dx); Dyslipidemia; 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; Primary hypertension Start: 12-29-2023 Refill Ej Guidry MA [facility] Comment on above: Medication Refill Start: 12-15-2023 End: 12-15-2023 [facility] [facility] Work Phone: Start: 12-15-2023 End: 12-15-2023 [facility] Work Phone: Start: 11-29-2023 End: 11-29-2023 Subsequent hospital visit by physician Jovan Faithv1 [facility] Comment on above: Arrived Start: 11-27-2023 End: 12-01-2023 Evaluation and management of inpatient Generic [facility] Work Phone: [facility] Start: 11-26-2023 End: 11-27-2023 Emergency department patient visit Ger Bansal DO Work Phone: [facility] Comment on above: NSTEMI (non-ST eleva chinyere myocardial infarction) (CMS/HCC) (Primary Dx); MADONNA (acute kidney injury) (CMS/HCC); 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); Type 1 diabetes mellitus with other specified complication (CMS/HCC) Start: 11-25-2023 End: 11-25-2023 [facility] Work Phone: Start: 11-25-2023 End: 11-25-2023 Patient encounter procedure [facility] Work Phone: Start: 11-17-2023 End: 11-17-2023 [facility] Work Phone: Start: 11-17-2023 End: 11-17-2023 [facility] Work Phone: Start: 11-02-2023 Orders Only Mary Ramirez MD Work Phone: [facility] Start: 10-22-2023 End: 10-22-2023 Patient encounter procedure [facility], Palomo Hollingsworth Start: 10-21-2023 End: 10-21-2023 Office outpatient new 45 minutes Mary Vargas MD Work Phone: [facility] Comment on above: 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 (Primary Dx); Dyslipidemia; Congestive heart failure, unspecified HF chronicity, unspecified heart failure type (HCC) Start: 10-11-2023 End: 10-11-2023 Subsequent hospital visit by physician Jovan Paul [facility] Start: 10-11-2023 Critical care ill/in jured patient init 30-74 min Aury Rouse DO Work Phone: [facility] Work Phone: Start: 10-11-2023 End: 10-13-2023 Evaluation and management of inpatient Praful Pineda MD Work Phone: [facility] Surgical Intensive [facility] Comment on above: COVID-19 (Primary Dx ); Acute respiratory failure with hypoxia (CMS/HCC); Acute congestive heart failure, unspecified heart failure type (CMS/HCC); Pneumonia of both lungs due to infectious organism, unspecified part of lung; Abnormal electrocardiogram (ECG) (EKG); Acute on chronic systolic (congestive) heart failure (CMS/HCC) Start: 10-08-2023 End: 10-08-2023 Office outpatient visit 25 minutes Mary Vargas MD Work Phone: [facility] [place] Comment on above: 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 Ayanna Albert Facility:[id number] Start: 07-30-2023 Refill Patyeduar Ortega [employer] Work Phone: [facility] [place] Start: 07-29-2023 Patient encounter procedure Da vid Sukhi Tabaresk Work Phone: [facility] [place] Work Phone: Start: 07-27-[address] Ayanna Albert Facility:[id number] Start: 02-19-2023 End: 02-19-2023 Office outpatient visit 25 minutes Patyeduar Ortega [employer]IDE Work Phone: [facility] [place] Comment on above: Type 1 diabetes suzie itus with diabetic neuropathy (HCC) Start: 01-25-2023 Patient encounter procedure Da vid Sukhi Mirza Work Phone: [facility] [place] Work Phone: Start: 01-25-[address] Nancy Mirza Facility:[id number] Start: 01-18-2023 Patient encounter procedure Da vid Sukhi Mirza Work Phone: [facility] [place] Work Phone: Start: 01-18-[address] Nancy Mirza Facility:[id number] Start: 01-15-2023 Patient encounter procedure Da vid Sukhi Mirza Work Phone: [facility] [place] Work Phone: Start: 01-15-2023 [id number], Provider : Chaya Chan, Status: Pen, Time: 10:00 AM Nancy Mirza Work Phone: [facility] [place] Work Phone: Start: 01-15-[address] Nancy Mirza Facility:[id number] Start: 01-13-2023 Patient encounter procedure Da vid J Rayshawnk Work Phone: [facility] [place] Work Phone: Start: 01-13-[address] Nancy Mirza Facility:[id number] Start: 01-08-2023 PTFUADULT4, Provider : Chaya Chan, Status: Pen, Time: 10:00 AM Nancy Mirza Work Phone: [facility] [place] Work Phone: Start: 01-08-[address] Nancy Mirza Facility:[id number] Start: 01-06-[address] Nancy Mirza Facility:[id number] Start: 01-06-2023 Patient encounter procedure Da jovani Mirza Work Phone: [facility] [place] Work Phone: Start: 01-01-[address] Nancy Mirza Facility:[id number] Start: 01-01-2023 Patient encounter procedure Da jovani Naireleazar Work Phone: [facility] [place] Work Phone: Start: 12-31-2022 Refsander Ortega CNP Work Phone: [facility] Comment on above: Type 1 diabetes suzie itus with diabetic neuropathy (HCC) (Primary Dx) Start: 12-30-[address] Nancy Mirza Facility:[id number] Start: 12-25-[address] Nancy Mirza Facility:[id number] Start: 12-25-2022 Patient encounter procedure Da jovani Mirza Work Phone: [facility] [place] Work Phone: Start: 12-21-2022 Patient encounter procedure Da ludwigd Sukhi Mirza Work Phone: [facility] [place] Work Phone: Start: 12-21-[address] Nancy Mirza Facility:[id number] Start: 10-19-2022 End: 10-19-2022 Office outpatient visit 25 minutes Paty Ortega [employer]IDE Work Phone: [facility] [place] Comment on above: Type 1 diabetes suzie itus with diabetic neuropathy (HCC) (Primary Dx); Essential hypertension; Pure hypercholesterolemia; Bilateral carotid artery stenosis; Prostate cancer screening Start: 06-19-2022 End: 06-19-2022 Office outpatient visit 25 minutes Paty Ortega [employer]IDE Work Phone: [facility] [place] Comment on above: Type 1 diabetes suzie itus with diabetic neuropathy (HCC) (Primary Dx); Essential hypertension; Elevated PSA Start: 02-13-2022 End: 02-13-2022 Office outpatient visit 25 minutes Mary Vargas MD Work Phone: [facility] [place] Comment on above: Type 1 diabetes suzie itus with diabetic neuropathy (HCC) (Primary Dx); 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); Essential hypertension; Bilateral carotid artery stenosis; Prostate cancer screening Start: 10-13-2021 End: 10-13-2021 Office outpatient visit 25 minutes Paty Ortega [employer]IDE Work Phone: [facility] [place] Comment on above: Type 1 diabetes suzie itus with diabetic neuropathy (HCC) (Primary Dx); Essential hypertension; Pure hypercholesterolemia Start: 10-08-2021 Refill Paty Ortega [employer]IDE Work Phone: [facility] Start: 06-20-2021 End: 06-20-2021 Office outpatient visit 25 minutes Paty Ortega [employer]IDE Work Phone: [facility] [place] Comment on above: Type 1 diabetes suzie itus with diabetic polyneuropathy (HCC) (Primary Dx); Essential hypertension; Pure hypercholesterolemia Start: 02-26-2021 End: 02-26-2021 Subsequent hospital visit by physician Mary Vargas MD Work Phone: [facility] Comment on above: Arrived Start: 02-18-2021 End: 02-18-2021 Office outpatient visit 25 minutes Mary Vargas MD Work Phone: [facility] Comment on above: Type 1 diabetes suzie itus with diabetic polyneuropathy (HCC) (Primary Dx); Bilateral carotid artery stenosis; Essential hypertension; Type 1 diabetes mellitus with diabetic neuropathy (HCC) Start: 02-18-2021 End: 02-18-2021 Refill Mary Vargas MD Work Phone: [facility] Start: 11-22-2020 End: 11-22-2020 Orders Only Ya Nicolas Work Phone: [facility] Start: 10-18-2020 End: 10-18-2020 Office outpatient visit 25 minutes Paty Ortega Work Phone: [facility] Comment on above: Type 1 diabetes suzie itus with diabetic polyneuropathy (HCC) (Primary Dx); Type 1 diabetes mellitus with diabetic neuropathy (HCC); Essential hypertension; Pure hypercholesterolemia Start: 06-18-2020 End: 06-18-2020 Office outpatient visit 25 minutes Paty Ortega Work Phone: [facility] Comment on above: Type 1 diabetes suzie itus with diabetic polyneuropathy (HCC) (Primary Dx); Type 1 diabetes mellitus with diabetic neuropathy (HCC); Essential hypertension; Pure hypercholesterolemia Start: 11-16-2019 End: 11-16-2019 Office outpatient visit 25 minutes Paty Ortega Work Phone: [facility] Comment on above: Type I diabetes suzie itus with neurological manifestations, uncontrolled (HCC) (Primary Dx); Type 1 diabetes mellitus with diabetic polyneuropathy (HCC); Pure hypercholesterolemia Start: 07-17-2019 End: 07-17-2019 Office outpatient visit 25 minutes Keeley Patton Work Phone: [facility] Comment on above: Type 1 diabetes suzie itus with diabetic polyneuropathy (HCC) (Primary Dx); Essential hypertension; Pure hypercholesterolemia Start: 03-13-2019 End: 03-13-2019 Office outpatient visit 25 minutes Mary Vargas Work Phone: [facility] Comment on above: 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) (Primary Dx); Pure hypercholesterolemia; Essential hypertension; Type 1 diabetes mellitus with diabetic neuropathy (HCC); Prostate cancer screening Start: 11-11-2018 End: 11-11-2018 Office outpatient visit 15 minutes Keeley Patton Work Phone: [facility] Comment on above: Type 1 diabetes suzie itus with diabetic neuropathy (HCC) (Primary Dx); Essential hypertension Start: 07-05-2018 End: 07-05-2018 Office outpatient visit 25 minutes Paty Stewart Ortega Work Phone: [facility] Comment on above: Type 1 diabetes suzie itus with diabetic neuropathy (HCC) (Primary Dx); Essential hypertension; Pure hypercholesterolemia Start: 02-28-2018 End: 02-28-2018 Office/outpatient visit, est, level 3 Alexandra Larsen Chon Work Phone: [facility] Start: 02-09-2018 Ambulatory Nancy Mirza Facilit y:[place] Start: 02-09-2018 End: 02-09-2018 Ambulatory Nancy Mirza Work Phone: [facility] Start: 10-29-2017 Office/outpatient vi sit, est, level 4 Mary Vargas Work Phone: [facility] Start: 06-17-2017 End: 06-17-2017 Office outpatient visit 25 minutes Ya Parker Work Phone: [facility] Comment on above: [...] colitis,primary sclerosing cholangitis and autoimmune hepatitis.Performed at: [address] [id number] Director: Todd Anderson PhD, Phone: [phone] Start: 04-06-2025 Serum inorganic phos phate measurement [...] or Pulmonary Embolism (PE)CRITICAL VALUE CALLED TO [id number] Victor Hugo Santamaria.RESULTS READ BACK BY SAME. Start: 04-03-2025 Estimated creatinine clearance Ryley Jeter MD Work Phone: Start: 02-12-2025 Comprehensive metabolic panel Paty Ortega [facility] Work Phone: Start: 02-12-2025 Lipid panel Paty Ortega [facility] Work Phone: Start: 02-12-2025 Lipid 1996 [...] Start: 12-01-2023 End: 12-01-2023 Glucose measurement Generic [facility] Work Phone: Start: 12-01-2023 Basic metabolic pane l calcium total Norma Tania [place] [employer] Work Phone: Start: 11-30-2023 [facility] Work [facility]: Start: 11-30-2023 Glucose measurement Gen [facility] Work Phone: Start: 11-30-2023 Echo tthrc r-t 2d w/ wom-mode compl spec&colr d Norma Tania [place] [employer] Work Phone: Start: 11-30-2023 Basic metabolic pane l calcium total Norma Tania [place] [employer] Work Phone: Start: 11-29-2023 Ct thorax w/o contra st material Alfred P Ezike [employer]IDE Work Phone: Start: 11-29-2023 Thromboplastin time partial plasma/whole blood Mary Vargas MD Work Phone: Start: 11-29-2023 Glucose measurement Gen [facility] Work Phone: Start: 11-29-2023 Ecg routine ecg w/le ast 12 lds trcg only w/o i&r Ger W Bansal DO Work Phone: Start: 11-29-2023 Glucose measurement [facility] Work Phone: Start: 11-29-2023 Thromboplastin time partial plasma/whole blood Mary Vargas MD Work Phone: Start: 11-29-2023 Basic metabolic pane l calcium total Norma Tania [place] [employer] Work Phone: Start: 11-28-2023 Glucose measurement [facility] Work Phone: Start: 11-28-2023 Glucose measurement Gen [facility] Work Phone: Start: 11-28-2023 Glucose measurement [facility] Work Phone: Start: 11-28-2023 Glucose measurement Gen [facility] Work Phone: Start: 11-28-2023 Basic metabolic pane l calcium total Norma Tania [place] [employer] Work Phone: Start: 11-28-2023 Glucose measurement Gen [facility] Work Phone: Start: 11-28-2023 Basic metabolic pane l calcium total Norma Tania [place] [employer] Work Phone: Start: 11-27-2023 End: 11-27-2023 Basic metabolic panel calcium total Norma Tania [place] [employer] Work Phone: Start: 11-27-2023 C-reactive protein Mehdi Pabon MD Work Phone: Start: 11-27-2023 Glucose measurement [facility] Work Phone: Start: 11-27-2023 Glucose measurement [facility] Work Phone: Start: 11-27-2023 Glucose [facility] Work Phone: Start: 11-27-2023 Basic metabolic pane l calcium total Nomra Tania [place] [employer] Work Phone: Start: 11-27-2023 Glucose [facility] Work Phone: Start: 11-27-2023 Iaad ia clostridium difficile toxin Norma Tania Juanjo [employer] Work Phone: Start: 11-27-2023 Hemoglobin glycosylated a1c Mary Vargas MD Work Phone: Start: 11-27-2023 Glucose measurement [facility] Work Phone: Start: 11-27-2023 Basic metabolic pane l calcium total Norma Tania [place] [employer] Work Phone: Start: 11-27-2023 Glucose measurement [facility] Work Phone: Start: 11-27-2023 Glucose measurement [facility] Work Phone: Start: 11-27-2023 End: 11-27-2023 Glucose measurement Generic [facility] Work Phone: Start: 11-27-2023 Basic metabolic pane l calcium total Norma Tania [place] [employer] Work Phone: Start: 11-27-2023 Glucose measurement [facility] Work Phone: Start: 11-27-2023 Glucose measurement [facility] Work Phone: Start: 11-27-2023 Glucose measurement [facility] Work Phone: Start: 11-27-2023 Basic metabolic pane l calcium total Norma Tania [place] [employer] Work Phone: Start: 11-27-2023 Influenza virus A an d B RNA and SARS-CoV-2 (COVID-19) N gene panel - Respiratory specimen by ALICE with probe detection Norma Gegier CNP Work Phone: Start: 11-27-2023 Polymerase chain ty ction analysis Norma Geiger CNP Work Phone: Start: 11-27-2023 End: 11-27-2023 Glucose measurement Generic [facility] Work Phone: Start: 11-27-2023 Assay of troponin quantitative Norma Geiger CNP Work Phone: Start: 11-27-2023 Gases blood ph direc t nikkie xcpt pulse oximitry Generic [facility] Work Phone: Start: 11-27-2023 End: 11-27-2023 Glucose measurement Generic [facility] Work Phone: Start: 11-27-2023 Radiologic exam ches t single view Norma Geiger CNP Work Phone: Start: 11-27-2023 End: 11-27-2023 Gases blood ph direct nikkie xcpt pulse oximitry Generic [facility] Work Phone: Start: 11-27-2023 Ecg routine ecg w/le ast 12 lds trcg only w/o i&r Norma Geiger CNP Work Phone: Start: 11-27-2023 OBTAIN ARTERIAL BLOO D GASES AND PERFORM Norma Geiger [employer] Work Phone: Start: 11-27-2023 OBTAIN VENOUS BLOOD GASES AND PERFORM Norma Geiger CNP Work Phone: Start: 11-27-2023 End: 11-27-2023 Basic metabolic panel calcium total Norma Geiger CNP Work Phone: Start: 11-27-2023 End: 11-27-2023 Culture bacterial blood aerobic w/id isolates Norma Geiger [employer]IDE Work Phone: Start: 11-27-2023 Lipid panel Norma Tavares [employer]IDE Work Phone: Start: 11-27-2023 End: 11-27-2023 Glucose measurement Generic [facility] Work Phone: Start: 11-27-2023 Thyrotropin [Units/v olume] in Serum or Plasma [facility] Start: 11-27-2023 Assay of troponin [...] 10-11-2023 Culture bacterial blood aerobic w/id isolates Auyr Rouse DO Work Phone: Start: 10-11-2023 Gases [...] 3 comp foot exam completed Paty Ortega [employer] Work Phone: Start: 02-19-2023 3 comp foot exam completed Paty Ortega [employer] Work Phone: Start: 02-12-2023 Lipid 1996 panel - S laurence or Plasma Ayanna Albert DO Work Phone: Start: 02-12-2023 Thyrotropin [Units/v olume] in Serum or Plasma Ayanna Albert DO Work Phone: Start: 10-19-2022 3 comp foot exam completed Paty Ortega [employer]IDE Work Phone: Start: 06-19-2022 3 comp foot exam completed Paty Ortega [employer]IDE Work Phone: Start: 02-13-2022 3 comp foot exam completed Mary Vargas MD Work Phone: Start: 10-13-2021 3 comp foot exam completed Paty Jordan [employer]IDE Work Phone: Start: 06-20-2021 3 comp foot exam completed Paty Ortega [employer] Work Phone: Start: 06-11-2021 Microalbumin [Mass/v olume] in Urine by Test strip Patyeduar Ortega [employer]IDE Work Phone: Start: 02-26-2021 Duplex scan extracra nial art compl bi study Mary Vargas MD Work Phone: Start: 02-18-2021 3 comp foot exam completed Mary Vargas MD Work Phone: Start: 10-18-2020 3 comp foot exam completed Paty Ortega Start: 10-14-2020 Ophthalmic examinati on and evaluation Paty Ortega [employer] Work Phone: Start: 10-03-2020 Microalbumin [Mass/v olume] [...] EJACULATION WITHIN 48 HRS. [facility] VOL24,NO.2, , PG.339 Performed By: #### 2 [id number] #### [place] [address] Start: 03-13-2019 3 comp foot exam completed Keeley Patton Start: 11-11-2018 3 comp foot exam completed Mary Vargas Start: 07-05-2018 3 comp foot exam completed Keeley Patton Start: 02-15-2017 3 comp foot exam completed Ya Parker Plan of Treatment Date Care Activity Detail Author Start: 02-12-2026 Creatinine measurement Creatinine Level [facility] Start: 02-12-2026 Lipid panel Lipid Panel [facility] Start: 02-12-2026 Potassium measurement Potassium Level [facility] Start: 02-12-2026 Thyroid stimulating hormone measurement TSH Level [facility] Start: 02-12-2026 Urine screening for protein Diabetes: Urine Protein Screening [facility] Start: 11-13-2025 Diabetic foot examination Diabetic Foot Exam [facility] Start: 10-27-2025 Screening for malignant neoplasm of lung Low-dose CT Lung Cancer Screen [facility] Start: 09-23-2025 eGFR Diabetes eGFR Diabetes [facility] Start: 09-05-2025 Urine screening for protein eGFR Diabetes [facility] Start: 08-14-2025 Hemoglobin A1c measurement A1C [facility] Start: 08-14-2025 Urine screening for protein eGFR Diabetes [facility] Start: 07-13-2025 End: 07-13-2025 Patient encounter procedure 07/13/2025 1:00 PM EDT Office Visit [facility] [place] [address] [place] [address] Paty Ortega CNP [address] [place] [address] [facility] [place] Start: 07-07-2025 Creatinine measurement Creatinine Level [facility] Start: 07-07-2025 Potassium measurement Potassium Level [facility] Start: 07-07-2025 Thyroid stimulating hormone measurement TSH Level [facility] Start: 07-02-2025 Influenza vaccination Influenza Vaccine (Season Ended) [facility] Start: 06-12-2025 End: 06-12-2025 Patient encounter procedure 06/12/2025 9:20 AM EDT Office Visit [facility] [address] [place] [phone] Woo Small MD [address] [place] [address] [facility] Start: 05-30-2025 Hemoglobin A1c measurement A1C [facility] Start: 05-17-2025 End: 05-17-2025 Patient encounter procedure [facility] Start: 05-14-2025 Hemoglobin A1c measurement [facility] Start: 05-14-2025 End: 05-14-2025 Patient encounter procedure 05/14/2025 11:20 AM EDT Office Visit [facility] [address] [place] [address] oWo Small MD [address] [place], [place] [address] [address] [facility] Start: 04-28-2025 Urine screening for protein eGFR Diabetes [facility] Start: 04-18-2025 Urine screening for protein eGFR Diabetes [facility] Start: 04-10-2025 Patient discharge [facility] Start: 04-08-2025 Administration of blood product [facility] Start: 04-07-2025 Application of intermittent pneumatic compression device [facility] Start: 04-07-2025 Hemodialysis care [facility] Start: 04-07-2025 End: 04-07-2025 [facility] Start: 04-07-2025 [facility] Start: 04-06-2025 [facility] Start: 04-06-2025 Care of hemodialysis equipment [facility] Start: 04-06-2025 Hemodialysis care [facility] Start: 04-06-2025 [facility] Start: 04-05-2025 End: 04-06-2025 [facility] Start: 04-05-2025 Care of hemodialysis equipment [facility] Start: 04-05-2025 Dialysis care [facility] Start: 04-05-2025 Referral to general surgeon [facility] Start: 04-05-2025 Continuous pulse oximetry [facility] Start: 04-05-2025 Dual pressure spontaneous ventilation support [facility] Start: 04-04-2025 End: 04-04-2025 [facility] Start: 04-04-2025 Care regimes management [facility] Start: 04-04-2025 Notification of physician [facility] Start: 04-04-2025 Referral to mechanical product engineer [facility] Start: 04-04-2025 End: 04-05-2025 [facility] Start: 04-04-2025 [facility] Start: 04-03-2025 Referral to stream control officer [facility] Start: 04-03-2025 Bacteria identified in Blood by Culture Blood Culture [facility] Start: 04-03-2025 Respiratory Panel (PCR) Respiratory Panel (PCR) [facility] Start: 04-03-2025 Following clinical pathway protocol [facility] Start: 04-03-2025 Lab findings surveillance [facility] Start: 04-03-2025 End: 04-03-2025 Care planning and problem solving actions [facility] Start: 04-03-2025 End: 04-03-2025 [facility] Start: 04-03-2025 End: 04-03-2025 Following clinical pathway protocol [facility] Start: 04-03-2025 Application of elastic bandage [facility] Start: 04-03-2025 Assessment of risk of venous thromboembolism [facility] Start: 04-03-2025 Bacteria identified in Sputum by Culture [facility] Start: 04-03-2025 Care regimes management [facility] Start: 04-03-2025 Consultation [facility] Start: 04-03-2025 Elevation of affected extremity [facility] Start: 04-03-2025 Fall prevention [facility] Start: 04-03-2025 Incentive spirometry [facility] Start: 04-03-2025 Inhalation therapy procedure [facility] Start: 04-03-2025 Insertion of catheter into peripheral vein [facility] Start: 04-03-2025 Introduction of urinary catheter [facility] Start: 04-03-2025 Measuring intake and output [facility] Start: 04-03-2025 Notification of physician [facility] Start: 04-03-2025 Oxygen therapy [facility] Start: 04-03-2025 Patient education [facility] Start: 04-03-2025 Patient referral to dietitian [facility] Start: 04-03-2025 Providing care according to standard [facility] Start: 04-03-2025 Provision of activity privileges [facility] Start: 04-03-2025 Referral to occupational therapist [facility] Start: 04-03-2025 Referral to service [facility] Start: 04-03-2025 Tobacco use cessation education [facility] Start: 04-03-2025 Vital signs measurements [facility] Start: 04-03-2025 Bacterial nucleic acid assay [facility] Start: 04-03-2025 Thyroid stimulating hormone measurement [facility] Start: 04-03-2025 Streptococcus pneumoniae antigen assay [facility] Start: 04-03-2025 Verification routine [facility] Start: 04-03-2025 Admission procedure [facility] Start: 04-03-2025 [facility] Start: 04-03-2025 End: 04-03-2025 [facility] Start: 04-03-2025 Continuous pulse oximetry [facility] Start: 04-03-2025 Dual pressure spontaneous ventilation support [facility] Start: 03-23-2025 Medicare Annual Wellness Visit Medicare Annual Wellness Visit (AWV) [facility] Start: 03-12-2025 End: 03-12-2025 Patient encounter procedure 03/12/2025 2:00 PM EDT Office Visit [facility] Physicians [facility] [place] [address] [place] [address] Paty Ortega, [address] [address] [facility] [place] Start: 02-26-2025 End: 02-26-2026 Basic metabolic 2000 panel - Serum or Plasma Basic metabolic panel Lab Routine Stage 3b chronic kidney disease (Multi) Expected: 02/26/2025 (Approximate), Expires: 02/26/2026 [facility] Service Area Work Phone: Comment on above: Expected: 02/26/2025 (Approximate), Expi res: 02/26/2026 Start: 02-06-2025 Creatinine measurement Creatinine Level [facility] Start: 02-06-2025 Potassium measurement Potassium Level [facility] Start: 02-04-2025 Hemoglobin A1c measurement A1C [facility] Start: 11-29-2024 Screening for malignant neoplasm of lung Low-dose CT Lung Cancer Screen [facility] Start: 11-27-2024 Thyroid stimulating hormone measurement TSH Level [facility] Start: 11-26-2024 Creatinine measurement Creatinine Level [facility] Start: 11-26-2024 Potassium measurement Potassium Level [facility] Start: 11-20-2024 End: 11-20-2024 Patient encounter procedure 11/20/2024 2:45 PM EST Office Visit [facility] Physicians [facility] [place] [address] [place] [address] Paty Ortega, CYCLE TOURING GUIDE [address] [facility] [place] [address] [facility] [place] Start: 11-14-2024 End: 11-14-2024 Patient encounter procedure 11/14/2024 10:40 AM EST Office Visit [facility] [place] [address] Woo Small MD [address] [place] [address] [facility] Start: 11-13-2024 End: 11-13-2024 Patient encounter procedure 11/13/2024 11:30 AM EST Office Visit [facility] [address] [place] [address] Paty Ortega CNP [address] [place] [address] [facility] [place] Start: 11-07-2024 End: 11-07-2024 Patient encounter procedure 11/07/2024 10:00 AM EST Office Visit [facility] [address] [facility] [address] [place] [address] Brock Groves MD [address] [place] [address] [facility] Start: 11-03-2024 End: 11-03-2024 Patient encounter procedure [facility] Start: 10-27-2024 End: 10-27-2024 Admission to same day surgery center 10/27/2024 10:05 AM EST - 10/27/2024 10:55 AM EST Surgery [facility] Cardiovascular Lab [address] [place] [phone] Elías Rodriguez MD [address] [place] [address] Left Heart Cath [facility] Comment on above: Left Heart Cath Start: 10-27-2024 Subsequent hospital visit by physician [facility] Procedural Care Unit Start: 10-18-2024 End: 10-18-2024 Patient encounter procedure 10/18/2024 1:20 PM EST Office Visit [facility] [address] [facility] 3rd [place] [phone] Woo Small MD [address] [place] [address] [facility] Start: 10-13-2024 Creatinine measurement Creatinine Level [facility] Start: 10-13-2024 Potassium measurement Potassium Level [facility] Start: 10-11-2024 Echocardiography Echocardiogram [facility] Start: 10-06-2024 Hemoglobin A1c measurement [facility] Start: 09-27-2024 Lipid panel Lipid Panel [facility] Start: 09-27-2024 Thyroid stimulating hormone measurement TSH Level [facility] Start: 08-29-2024 End: 08-29-2025 Comprehensive metabolic 2000 panel - Serum or Plasma Comprehensive metabolic panel Lab Routine Stage 3b chronic kidney disease (Multi) Expected: 08/29/2024 (Approximate), Expires: 08/29/2025 [facility] Service Area Work Phone: Comment on above: Expected: 08/29/2024 (Approximate), Expi res: 08/29/2025 Start: 08-29-2024 End: 08-29-2025 Microalbumin/Creatinine [Mass Ratio] in Urine Albumin-Creatinine Ratio, Urine Random Lab Routine Stage 3b chronic kidney disease (Multi) Expected: 08/29/2024 (Approximate), Expires: 08/29/2025 [facility] Work Phone: Comment on above: Expected: 08/29/2024 (Approximate), Expi res: 08/29/2025 Start: 08-29-2024 End: 08-29-2025 Urinalysis complete panel - Urine Urinalysis with Reflex Microscopic Lab Routine Stage 3b chronic kidney disease (Multi) Expected: 08/29/2024 (Approximate), Expires: 08/29/2025 [facility] Work Phone: Comment on above: Expected: 08/29/2024 (Approximate), Expi res: 08/29/2025 Start: 08-29-2024 End: 08-29-2024 Patient encounter procedure 08/29/2024 1:00 PM EDT Office Visit [facility] Medical Office Building [address] [place] [id number] Madie Albert, SENIOR SALES OPERATIONS ANALYST-CYCLE TOURING GUIDE, DNP [address] [address] [facility] Building Start: 08-25-2024 End: 02-23-2025 Microalbumin/Creatinine [Mass Ratio] in Urine Albumin , Urine Random Lab Routine Stage 3b chronic kidney disease (Multi) Expected: 08/25/2024 (Approximate), Expires: 02/23/2025 [facility] Work Phone: Comment on above: Expected: 08/25/2024 (Approximate), Expi res: 02/23/2025 Start: 08-09-2024 Urine screening for protein Diabetes: Urine Protein Screening [facility] Start: 07-21-2024 End: 07-21-2024 Patient encounter procedure 07/21/2024 1:45 PM EDT Office Visit [facility] Endocrinology [address] [address] Paty Ortega, TRISTAN [address] [place] [address] [facility] [place] Start: 07-02-2024 COVID-19 Vaccine ( season) COVID-19 Vaccine ( season) [facility] Start: 07-02-2024 COVID-19 Vaccine () COVID-19 Vaccine () [facility] Start: 07-02-2024 Influenza vaccination [facility] Start: 06-21-2024 Diabetic foot examination [facility] Start: 05-31-2024 Urine screening for protein eGFR Diabetes [facility] Start: 04-24-2024 End: 04-24-2024 ambulatory [facility] Start: 04-24-2024 End: 04-24-2024 Patient encounter procedure 04/24/2024 9:40 AM EDT Office Visit [facility] [address] [facility] [place] [address] Woo Small MD [address] [place] [address] [facility] Start: 03-27-2024 Hemoglobin A1c measurement A1C [facility] Start: 02-26-2024 Hemoglobin A1c measurement [facility] Start: 02-24-2024 End: 02-23-2025 Basic metabolic 2000 panel - Serum or Plasma Basic metabolic panel Lab Routine Stage 3b chronic kidney disease (Multi) Expected: 02/24/2024 (Approximate), Expires: 02/23/2025 [facility] Service Area Work Phone: Comment on above: Expected: 02/24/2024 (Approximate), Expi res: 02/23/2025 Start: 02-24-2024 End: 02-23-2025 Phosphate [Mass/volume] in Serum or Plasma Phosphorus Lab Routine Stage 3b chronic kidney disease (Multi) Expected: 02/24/2024 (Approximate), Expires: 02/23/2025 [facility] Work Phone: Comment on above: Expected: 02/24/2024 (Approximate), Expi res: 02/23/2025 Start: 02-24-2024 End: 02-23-2025 Urate [Mass/volume] in Serum or Plasma Uric acid Lab Routine Stage 3b chronic kidney disease (Multi) Expected: 02/24/2024 (Approximate), Expires: 02/23/2025 [facility] Work Phone: Comment on above: Expected: 02/24/2024 (Approximate), Expi res: 02/23/2025 Start: 02-24-2024 End: 02-24-2024 Patient encounter procedure 02/24/2024 1:45 PM EDT Office Visit [facility] Medical Office [facility] [address] [place] [address] Madie Albert, SENIOR SALES OPERATIONS ANALYST-CYCLE TOURING GUIDE, DNP [address] [phone] [facility] Medical Office [facility] Start: 02-20-2024 Diabetic foot examination Foot Exam [facility] Start: 02-18-2024 End: 02-18-2024 ambulatory [facility] [place] Start: 02-18-2024 End: 02-18-2024 Patient encounter procedure 02/18/2024 1:00 PM EDT Office Visit [facility] [place] [address] [place] [phone] Paty Ortega, TRISTAN [address] [place], [place] [phone] [facility] [place] Start: 02-13-2024 Lipid panel Lipid Panel [facility] Start: 02-13-2024 Thyroid stimulating hormone measurement TSH Level [facility] Start: 01-14-2024 End: 01-14-2024 ambulatory [facility] Start: 01-14-2024 End: 01-14-2024 Patient encounter procedure 01/14/2024 11:00 AM EDT Office Visit [facility] [address] [facility] [place] [address] Aylin Lacy CNP [address] [place] [address] [facility] Start: 01-12-2024 End: 01-12-2024 ambulatory [facility] Start: 01-12-2024 End: 01-12-2024 Patient encounter procedure [facility] Start: 01-10-2024 End: 10-08-2024 Comprehensive metabolic 2000 panel - Serum or Plasma Comprehensive Metabolic Panel Lab Routine 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) Expected: 01/10/2024 (Approximate), Expires: 10/08/2024 [facility] Work Phone: Comment on above: Expected: 01/10/2024 (Approximate), Expi res: 10/08/2024 Start: 01-10-2024 End: 10-08-2024 Hemoglobin A1c/Hemoglobin.total in Blood Hemoglobin A1c Lab Routine 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) Expected: 01/10/2024 (Approximate), Expires: 10/08/2024 [facility] Comment on above: Expected: 01/10/2024 (Approximate), Expi res: 10/08/2024 Start: 12-28-2023 Hemoglobin A1c measurement Diabetes: Hemoglobin A1C [facility] Start: 12-09-2023 Glaucoma screening Diabetes: Retinopathy Screening [facility] Start: 11-29-2023 End: 11-29-2023 Patient encounter procedure [facility] Start: 10-19-2023 Diabetic foot examination Foot Exam [facility] Start: 10-08-2023 End: 10-08-2023 Patient encounter procedure 10/08/2023 11:15 AM EST Office Visit [facility] [place] [address] [place] [address] Mary Vargas MD [address] [place] [address] [facility] [place] Start: 09-11-2023 Hemoglobin A1c measurement [facility] Start: 08-25-2023 End: 08-25-2024 Basic metabolic 2000 panel - Serum or Plasma Basic metabolic panel Lab Routine Stage 3b chronic kidney disease (CMS/HCC) Expected: 08/25/2023 (Approximate), Expires: 08/25/2024 [facility] Service Area Work Phone: Comment on above: Expected: 08/25/2023 (Approximate), Expi res: 08/25/2024 Start: 08-25-2023 End: 08-25-2024 Microalbumin/Creatinine [Mass Ratio] in Urine Albumin, urine, random Lab Routine Stage 3b chronic kidney disease (CMS/HCC) Expected: 08/25/2023 (Approximate), Expires: 08/25/2024 [facility] Work Phone: Comment on above: Expected: 08/25/2023 (Approximate), Expi res: 08/25/2024 Start: 07-02-2023 COVID-19 Vaccine ( season) COVID-19 Vaccine ( season) [facility] Start: 07-02-2023 Influenza vaccination [facility] Start: 06-21-2023 End: 06-21-2023 Patient encounter procedure 06/21/2023 1:15 PM EDT Office Visit [facility] [place] [address] [place] [phone] Paty Ortega, CYCLE TOURING GUIDE [address] [place] [address] [facility] [place] Start: 06-19-2023 Diabetic foot examination Foot Exam [facility] Start: 06-01-2023 End: 02-20-2024 Comprehensive metabolic 2000 panel - Serum or Plasma Comprehensive Metabolic Panel Lab Routine Type 1 diabetes mellitus with diabetic neuropathy (HCC) Expected: 06/01/2023, Expires: 02/20/2024 [facility] Work Phone: Comment on above: Expected: 06/01/2023, Expires: Start: 06-01-2023 End: 02-20-2024 Hemoglobin A1c/Hemoglobin.total in Blood Hemoglobin A1c Lab Routine Type 1 diabetes mellitus with diabetic neuropathy (HCC) Expected: 06/01/2023, Expires: 02/20/2024 [facility] Comment on above: Expected: 06/01/2023, Expires: 4 Start: 05-14-2023 Hemoglobin A1c measurement A1C [facility] Start: 02-19-2023 End: 02-19-2023 Patient encounter procedure 02/19/2023 Office Visit Endocrinology Paty Ortega, CYCLE TOURING GUIDE [address] [place] [address] [facility] [place] Start: 02-13-2023 Diabetic foot examination Foot Exam [facility] Start: 02-05-2023 End: 02-05-2023 Patient encounter procedure 02/05/2023 Appointment Cardiology Paty Ortega, CYCLE TOURING GUIDE [address] [place] [address] [facility] Start: 01-30-2023 End: 10-20-2023 Complete blood count with white cell differential, manual CBC and Differential Lab Routine Type 1 diabetes mellitus with diabetic neuropathy (HCC) Expected: 01/30/2023, Expires: 10/20/2023 [facility] Comment on above: Expected: 01/30/2023, Expires: 3 Start: 01-30-2023 End: 10-20-2023 Comprehensive metabolic 2000 panel - Serum or Plasma Comprehensive Metabolic Panel Lab Routine Type 1 diabetes mellitus with diabetic neuropathy (HCC) Expected: 01/30/2023, Expires: 10/20/2023 [facility] Comment on above: Expected: 01/30/2023, Expires: 3 Start: 01-30-2023 End: 10-20-2023 Hemoglobin A1c/Hemoglobin.total in Blood Hemoglobin A1c Lab Routine Type 1 diabetes mellitus with diabetic neuropathy (HCC) Expected: 01/30/2023, Expires: 10/20/2023 [facility] Comment on above: Expected: 01/30/2023, Expires: 3 Start: 01-30-2023 End: 10-20-2023 Lipid 1996 panel - Serum or Plasma Lipid Panel Lab Routine Type 1 diabetes mellitus with diabetic neuropathy (HCC) Expected: 01/30/2023, Expires: 10/20/2023 [facility] Comment on above: Expected: 01/30/2023, Expires: 3 Start: 01-30-2023 End: 10-19-2023 Microalbumin measurement, urine, quantitative Microalbumin/Creatinine Ratio, UR Random Lab Routine Type 1 diabetes mellitus with diabetic neuropathy (HCC) Expected: 01/30/2023, Expires: 10/19/2023 [facility] Comment on above: Expected: 01/30/2023, Expires: 3 Start: 01-30-2023 End: 10-20-2023 Prostate specific Ag [Mass/volume] in Serum or Plasma PSA, Screen Lab Routine Prostate cancer screening Expected: 01/30/2023, Expires: 10/20/2023 [facility] Comment on above: Expected: 01/30/2023, Expires: 3 Start: 01-30-2023 End: 10-20-2023 Thyrotropin [Units/volume] in Serum or Plasma TSH Lab Routine Type 1 diabetes mellitus with diabetic neuropathy (HCC) Expected: 01/30/2023, Expires: 10/20/2023 [facility] Comment on above: Expected: 01/30/2023, Expires: 3 Start: 01-30-2023 End: 10-20-2023 Thyroxine (T4) free [Mass/volume] in Serum or Plasma T4, Free Lab Routine Type 1 diabetes mellitus with diabetic neuropathy (HCC) Expected: 01/30/2023, Expires: 10/20/2023 [facility] Comment on above: Expected: 01/30/2023, Expires: 3 Start: 01-25-2023 [email or web address], Provider: Zoila Lopez, Status: Angelo, Time: 2:45 PM [email or web address], Provider: Zoila Lopez, Status: Angelo, Time: 2:45 PM [facility] Work Phone: Start: 01-18-2023 PTRECHECKA, Provider: Trosterud,Carlene, Status: Pen, Time: 2:00 PM PTRECHECKA, Provider: Carlene Whitehead, Status: Pen, Time: 2:[address] [facility] Work Phone: Start: 01-15-2023 [email or web address], Provider: Chaya Chan, Status: Pen, Time: 10:00 AM [email or web address], Provider: Chaya Chan, Status: Pen, Time: 10:00 AM [facility] Work Phone: Start: 01-13-2023 [email or web address], Provider: Chaya Chan, Status: Pen, Time: 10:00 AM [email or web address], Provider: Chaya Chan, Status: Pen, Time: 10:00 AM [facility] Work Phone: Start: 01-08-2023 [email or web address], Provider: Chaya Chan, Status: Pen, Time: 10:00 AM [email or web address], Provider: Chaya Chan, Status: Pen, Time: 10:00 AM [facility] Work Phone: Start: 01-06-2023 [email or web address], Provider: Zoila Lopez, Status: Pen, Time: 10:00 AM [email or web address], Provider: Zoila Lopez, Status: Pen, Time: 10:00 AM [facility] Work Phone: Start: 01-01-2023 [email or web address], Provider: Zoila Lopez, Status: Pen, Time: 10:45 AM [email or web address], Provider: Zoila Lopez, Status: Pen, Time: 10:45 AM [facility] Work Phone: Start: 12-30-2022 [email or web address], Provider: Zoila Lopez, Status: Pen, Time: 4:15 PM [email or web address], Provider: Zoila Lopez, Status: Pen, Time: 4:15 PM [facility] Work Phone: Start: 12-25-2022 [email or web address], Provider: Chaya Chan, Status: Pen, Time: 7:45 AM [email or web address], Provider: Chaya Chan, Status: Pen, Time: 7:45 AM [facility] Work Phone: Start: 10-19-2022 End: 10-19-2022 Patient encounter procedure 10/19/2022 Office Visit Endocrinology Paty Ortega, TRISTAN [address] [place] [address] [facility] [place] Start: 10-13-2022 Diabetic foot examination Foot Exam [facility] Start: 09-08-2022 Hemoglobin A1c measurement A1C [facility] Start: 07-02-2022 Influenza vaccination [facility] Start: 06-20-2022 Diabetic foot examination Foot Exam [facility] Start: 06-19-2022 End: 06-19-2022 Patient encounter procedure 06/19/2022 Office Visit Endocrinology Paty Ortega CNP [address] [place] [address] [facility] [place] Start: 06-11-2022 Microalbumin measurement, urine, quantitative Urine Microalbumin [facility] Start: 05-27-2022 History and physical examination, annual for health maintenance Wellness Visit [facility] Start: 05-27-2022 Medicare Wellness Visit Medicare Wellness Visit [facility] Start: 04-13-2022 Hemoglobin A1c measurement A1C [facility] Start: 03-06-2022 COVID-19 Vaccine (4 - Booster for Moderna series) COVID-19 Vaccine (4 - Booster for Moderna series) [facility] Start: 02-18-2022 Diabetic foot examination Foot Exam [facility] Start: 02-13-2022 End: 02-13-2022 Patient encounter procedure 02/13/2022 Office Visit Endocrinology Mary Vargas MD [address] [place] [address] [facility] [place] Start: 01-30-2022 End: 10-14-2022 Comprehensive metabolic 2000 panel - Serum or Plasma Comprehensive Metabolic Panel Lab Routine Type 1 diabetes mellitus with diabetic neuropathy (HCC) Expected: 01/30/2022, Expires: 10/14/2022 [facility] Work Phone: Comment on above: Expected: 01/30/2022, Expires: 2 Start: 01-30-2022 End: 10-14-2022 Hemoglobin A1c/Hemoglobin.total in Blood Hemoglobin A1c Lab Routine Type 1 diabetes mellitus with diabetic neuropathy (HCC) Expected: 01/30/2022, Expires: 10/14/2022 [facility] Comment on above: Expected: 01/30/2022, Expires: 2 Start: 01-30-2022 End: 10-14-2022 Lipid 1996 panel - Serum or Plasma Lipid Panel Lab Routine Type 1 diabetes mellitus with diabetic neuropathy (HCC) Expected: 01/30/2022, Expires: 10/14/2022 [facility] Comment on above: Expected: 01/30/2022, Expires: 2 Start: 01-01-2022 COVID-19 Vaccine (4 - Booster for Moderna series) COVID-19 Vaccine (4 - Booster for Moderna series) [facility] Start: 01-01-2022 COVID-19 Vaccine (4 - Moderna series) COVID-19 Vaccine (4 - Moderna series) [facility] Start: 12-12-2021 Hemoglobin A1c measurement A1C [facility] Start: 12-12-2021 Microalbumin measurement, urine, quantitative Urine Microalbumin [facility] Start: 12-12-2021 Urine screening for protein [facility] Start: 10-18-2021 Diabetic foot examination Foot Exam [facility] Start: 10-14-2021 Glaucoma screening [facility] Start: 10-13-2021 End: 10-13-2021 Patient encounter procedure 10/13/2021 Office Visit Endocrinology Paty Ortega, CYCLE TOURING GUIDE [address] [place] [address] [facility] [place] Start: 10-03-2021 Albumin DL <= 20 mg/L (U) [Mass/Vol] Urine Microalbumin [facility] Start: 10-03-2021 Microalbumin measurement, urine, quantitative Urine Microalbumin [facility] Start: 10-01-2021 End: 06-21-2022 Comprehensive metabolic 2000 panel - Serum or Plasma Comprehensive Metabolic Panel Lab Routine Type 1 diabetes mellitus with diabetic polyneuropathy (HCC) Expected: 10/01/2021, Expires: 06/21/2022 [facility] Work Phone: Comment on above: Expected: 10/01/2021, Expires: 2 Start: 10-01-2021 End: 06-21-2022 Hemoglobin A1c/Hemoglobin.total in Blood Hemoglobin A1c Lab Routine Type 1 diabetes mellitus with diabetic polyneuropathy (HCC) Expected: 10/01/2021, Expires: 06/21/2022 [facility] Comment on above: Expected: 10/01/2021, Expires: 2 Start: 10-01-2021 End: 06-21-2022 Thyrotropin [Units/volume] in Serum or Plasma TSH Lab Routine Type 1 diabetes mellitus with diabetic polyneuropathy (HCC) Expected: 10/01/2021, Expires: 06/21/2022 [facility] Comment on above: Expected: 10/01/2021, Expires: 2 Start: 10-01-2021 End: 06-21-2022 Thyroxine (T4) free [Mass/volume] in Serum or Plasma T4, Free Lab Routine Type 1 diabetes mellitus with diabetic polyneuropathy (HCC) Expected: 10/01/2021, Expires: 06/21/2022 [facility] Comment on above: Expected: 10/01/2021, Expires: 2 Start: 09-11-2021 Hemoglobin A1c measurement A1C [facility] Start: 08-13-2021 Hemoglobin A1c measurement A1C [facility] Start: 07-31-2021 COVID-19 Vaccine (3 - Booster for Moderna series) COVID-19 Vaccine (3 - Booster for Moderna series) [facility] Start: 07-04-2021 Prostate specific antigen measurement PSA Level [facility] Start: 07-02-2021 Influenza vaccination Sequential Influenza Vaccine (#1) [facility] Start: 06-20-2021 End: 06-20-2021 Patient encounter procedure 06/20/2021 Office Visit Endocrinology Paty Ortega CNP [address] [place] [address] [phone] [facility] [place] Start: 04-16-2021 History and physical examination, annual for health maintenance Wellness Visit [facility] Start: 04-03-2021 HbA1c (Bld) [Mass fraction] A1C [facility] Start: 02-18-2021 End: 02-18-2021 Office Visit 02/18/2021 Office Visit Endocrinology Mary Vargas MD [address] [place] [address] [phone] [facility] Start: 02-02-2021 End: 10-19-2021 Comprehensive metabolic 2000 panel Comprehensive Metabolic Panel Lab Routine Type 1 diabetes mellitus with diabetic polyneuropathy (HCC) Expected: 02/02/2021, Expires: 10/19/2021 [facility] Comment on above: Expected: 02/02/2021, Expires: Start: 02-02-2021 End: 10-19-2021 Free T4 [Mass/Vol] T4, Free Lab Routine Type 1 diabetes mellitus with diabetic polyneuropathy (HCC) Expected: 02/02/2021, Expires: 10/19/2021 [facility] Comment on above: Expected: 02/02/2021, Expires: Start: 02-02-2021 End: 10-19-2021 HbA1c (Bld) [Mass fraction] Hemoglobin A1c Lab Routine Type 1 diabetes mellitus with diabetic polyneuropathy (HCC) Expected: 02/02/2021, Expires: 10/19/2021 [facility] Comment on above: Expected: 02/02/2021, Expires: Start: 02-02-2021 End: 10-19-2021 TSH Qn TSH Lab Routine Type 1 diabetes mellitus with diabetic polyneuropathy (HCC) Expected: 02/02/2021, Expires: 10/19/2021 [facility] Comment on above: Expected: 02/02/2021, Expires: Start: 12-11-2020 HbA1c (Bld) [Mass fraction] A1C [facility] Start: 11-16-2020 Diabetic foot examination Foot Exam [facility] Start: 10-18-2020 End: 10-18-2020 Office Visit 10/18/2020 Office Visit Endocrinology Keeley Patton, CYCLE TOURING GUIDE [address] [address] [phone] [facility] Start: 10-01-2020 End: 06-19-2021 Comprehensive metabolic 2000 panel Comprehensive Metabolic Panel Lab Routine Type 1 diabetes mellitus with diabetic polyneuropathy (HCC) Expected: 10/01/2020, Expires: 06/19/2021 [facility] Comment on above: Expected: 10/01/2020, Expires: 1 Start: 10-01-2020 End: 06-19-2021 HbA1c (Bld) [Mass fraction] Hemoglobin A1c Lab Routine Type 1 diabetes mellitus with diabetic polyneuropathy (HCC) Expected: 10/01/2020, Expires: 06/19/2021 [facility] Comment on above: Expected: 10/01/2020, Expires: 1 Start: 10-01-2020 End: 06-19-2021 Lipid 1996 panel Lipid Panel Lab Routine Type 1 diabetes mellitus with diabetic polyneuropathy (HCC) Expected: 10/01/2020, Expires: 06/19/2021 [facility] Comment on above: Expected: 10/01/2020, Expires: 1 Start: 10-01-2020 End: 06-18-2021 Microalbumin measurement, urine, quantitative Microalbumin/Creatinine Ratio, UR Random Lab Routine Type 1 diabetes mellitus with diabetic polyneuropathy (HCC) Expected: 10/01/2020, Expires: 06/18/2021 [facility] Comment on above: Expected: 10/01/2020, Expires: 1 Start: 07-17-2020 Diabetic foot examination FOOT EXAM [facility] Start: 07-02-2020 Influenza vaccination Sequential Influenza Vaccine (#1) [facility] Start: 07-02-2020 Influenza vaccination given Sequential Influenza Vaccine (#1) [facility] Start: 05-03-2020 HbA1c (Bld) [Mass fraction] A1C [facility] Start: 03-15-2020 End: 03-15-2020 Office Visit 03/15/2020 Office Visit Endocrinology Keeley Patton, CYCLE TOURING GUIDE [address] [facility] [address] [place] [address] [phone] [facility] Start: 03-13-2020 Diabetic foot examination FOOT EXAM [facility] Start: 01-02-2020 HbA1c (Bld) [Mass fraction] A1C [facility] Start: 11-16-2019 End: 11-16-2019 Office Visit 11/16/2019 Office Visit Endocrinology Paty Ortega, CYCLE TOURING GUIDE [address] [facility] [address] [place] [address] [phone] [facility] Start: 11-11-2019 Diabetic foot examination FOOT EXAM [facility] Start: 07-17-2019 End: 07-17-2019 Office Visit 07/17/2019 Office Visit Endocrinology Keeley Patton, CYCLE TOURING GUIDE [address] [address] [phone] [facility] Start: 07-05-2019 Diabetic foot examination FOOT EXAM [facility] Start: 07-02-2019 Influenza vaccination given [facility] Start: 03-13-2019 End: 03-13-2019 Ambulatory 03/13/2019 Office Visit Endocrinology Mary Vargas MD [address] [address] [phone] [facility] Start: 02-28-2019 Diabetic foot examination (regime/therapy) FOOT EXAM [facility] Start: 01-31-2019 Pneumococcal vaccination PNEUMOCOCCAL VACCINE AGE 65+ (2 of 2 - PPSV23) [facility] Start: 2018 Respiratory Syncytial Virus Immunization: Risk, 60-74 Risk, or 75+ (1 - 1-dose 75+ series) Respiratory Syncytial Virus Immunization: Risk, 60-74 Risk, or 75+ (1 - 1-dose 75+ series) [facility] Start: 2018 RSV High Risk: (Elderly (60+) or Population) (1 - 1-dose 75+ series) RSV High Risk: (Elderly (60+) or Population) (1 - 1-dose 75+ series) [facility] Start: 11-08-2018 End: 11-08-2018 Ambulatory 11/08/2018 Office Visit Endocrinology Ya Parker PA-C [address] [facility] [address] [place] [address] [phone] [facility] Start: 10-29-2018 Diabetic foot examination (regime/therapy) FOOT EXAM [facility] Work Phone: Start: 07-05-2018 End: 07-05-2018 Ambulatory 07/05/2018 Office Visit Endocrinology Paty Ortega, TRISTAN [address] [facility] [address] [place] [address] [phone] [facility] Start: 07-02-2018 Influenza vaccination [facility] Start: 07-02-2018 Influenza vaccination given SEQUENTIAL INFLUENZA VACCINE (#1) [facility] Start: 02-28-2018 Ambulatory 02/28/2018 Office Visit Endocrinology Alexandra Givens, TRISTAN [address] [facility] [address] [place] [address] [phone] [facility] Start: 02-15-2018 3 comp foot exam completed FOOT EXAM [facility] Work Phone: Start: 10-29-2017 Ambulatory 10/29/2017 Office Visit Endocrinology Mary Vargas MD [address] [facility] [address] [place] [phone] [facility] Start: 07-02-2017 Influenza vaccination SEQUENTIAL INFLUENZA VACCINE (#1) [facility] Work Phone: Start: 07-02-2017 SEQUENTIAL INFLUENZA VACCINE (#1) SEQUENTIAL INFLUENZA VACCINE (#1) [facility] Work Phone: Start: 05-10-2017 HbA1c [facility] Work Phone: Start: 2008 ABDOMINAL AORTIC ULTRASOUND ABDOMINAL AORTIC ULTRASOUND [facility] Work Phone: Start: 2008 Fall risk assessment [facility] Start: 2008 Pneumococcal vaccination PNEUMOCOCCAL VACCINE AGE 65+ (1 of 2 - PCV13) [facility] Work Phone: Start: 2008 PNEUMOCOCCAL VACCINE AGE 65+ (1 of 2 - PCV13) PNEUMOCOCCAL VACCINE AGE 65+ (1 of 2 - PCV13) [facility] Work Phone: Start: 2008 Ultrasound scan of abdominal aorta ABDOMINAL AORTIC ULTRASOUND [facility] Work Phone: Start: 2003 RSV patients and/or patients aged 60+ years (1 - 1-dose 60+ series) RSV patients and/or patients aged 60+ years (1 - 1-dose 60+ series) [facility] Start: 2003 Zoster vacc, sc ZOSTER VACCINE [facility] Work Phone: Start: 1993 Administration of herpes zoster vaccine ZOSTER VACCINES (1 of 2) [facility] Start: 1993 ZOSTER VACCINES (1 of 2) ZOSTER VACCINES (1 of 2) [facility] Start: 1965 DTaP/Tdap/Td Vaccines (1 - Tdap) DTaP/Tdap/Td Vaccines (1 - Tdap) [facility] Start: 1961 Hepatitis C antibody, confirmatory test Hepatitis C Screening [facility] Start: 1961 Hepatitis C screening Hepatitis C Screening [facility] Start: 1955 Adolescent depression screening assessment Depression Screening (PHQ9) [facility] Start: 1955 Depression screening using PHQ-9 (Patient Health Questionnaire 9) score [facility] Start: 1953 Albumin Test strip detection limit <= 20 mg/L mass conc (U) URINE MICROALBUMIN [facility] Work Phone: Start: 1953 Diabetic foot examination Diabetes: Foot Exam [facility] Start: 1953 Glaucoma screening [facility] Start: 1953 Ophthalmic examination and evaluation OPHTHALMOLOGY EXAM [facility] Start: 1953 Urine, microalbumin URINE MICROALBUMIN [facility] Work Phone: Start: 1949 Pneumococcal Vaccine: Age 65+ (1 of 2 - PPSV23) Pneumococcal Vaccine: Age 65+ (1 of 2 - PPSV23) [facility] Start: 1946 History and physical examination, annual for health maintenance Wellness Visit [facility] Start: 1943 End: 1943 Low-dose CT Lung Cancer Screen Low-dose CT Lung Cancer Screen [facility] Work Phone: Start: 1943 Protein mass conc COLONOSCOPY [facility] Start: 1943 Screening colonoscopy COLONOSCOPY [facility] Work Phone: Start: 1943 End: 1943 Screening for malignant neoplasm of lung Low-dose CT Lung Cancer Screen [facility] Start: 1943 End: 1943 Tetanus vaccination [facility] Start: 1943 Colonoscopy COLONOSCOPY [facility] Work Phone: Start: 1943 Cyanocobalamin vitamin b-12 Vitamin B-12 [facility] Start: 1943 Diabetes: Celiac Disease Screening Diabetes: Celiac Disease Screening [facility] Start: 1943 Fall risk assessment Falls Risk Assessment [facility] Start: 1943 Low dose computed tomography of chest without contrast Low-dose CT Lung Cancer Screen [facility] Start: 1943 Medicare Annual Wellness Visit Medicare Annual Wellness Visit (AWV) [facility] Start: 1943 Prostate specific antigen measurement PSA Level [facility] Start: 1943 Screening for malignant neoplasm of colon Colorectal Cancer Screening: Colonoscopy [facility] Start: 1943 TETANUS EVERY 10 YR TETANUS EVERY 10 YR [facility] Work Phone: Alanine aminotransferase [Enzymatic activity/volume] in Serum or Plasma [facility] Albumin [Mass/volume ] in Serum or Plasma [facility] Alkaline phosphatase [Enzymatic activity/volume] in Serum or Plasma [facility] Anion gap in Serum o r Plasma [facility] aPTT in Platelet poo r plasma by Coagulation assay aPTT - baseline Lab STAT As needed (Lab) for 1 Occurrences starting 11/26/2023 [facility] Work Phone: Comment on above: As needed (Lab) for 1 Occurrences starti ng 11/26/2023 Bacteria identified in Blood by Culture [facility] Work Phone: End: 11-26-2023 Bacteria identified in Blood by Culture [facility] Work Phone: Comment on above: STAT (Lab) for 1 Occurrences starting until 11/26/2023 Bacteria identified in Blood by Culture [facility] Work Phone: End: 10-27-2024 Bacteria identified in Unspecified specimen by Aerobe culture [facility] Work Phone: Comment on above: Once for 1 Occurrences starting 10/27/20 until 10/27/2024 End: 06-18-2018 Basic metabolic 2000 panel Basic Metabolic Panel Routine Type 1 diabetes mellitus with diabetic neuropathy (HCC) 1 Occurrences starting 06/17/2017 until 06/18/2018 [facility] Work Phone: Comment on above: 1 Occurrences starting 06/17/2017 until 06/18/2018 End: 10-14-2023 Basic metabolic 2000 panel - Serum or Plasma Basic Metabolic Panel Lab Routine Morning draw (Lab) for 3 Occurrences starting 10/12/2023 until 10/14/2023, 1 completed [facility] Work Phone: Comment on above: Morning draw (Lab) for 3 Occurrences sta rting 10/12/2023 until 10/14/2023, 1 completed End: 03-09-2026 Basic metabolic 2000 panel - Serum or Plasma Basic metabolic panel Lab Routine Coronary 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 NSTEMI (non-ST elevated myocardial infarction) (HCC) 1 Occurrences starting 03/09/2025 until 03/09/2026 [facility] Work Phone: Comment on above: 1 Occurrences starting 03/09/2025 until 03/09/2026 Bilirubin, total measurement [facility] BUN/Creatinine ratio [facility] Calcium [Mass/volume ] in Serum or Plasma [facility] Carbon dioxide, tota l [Moles/volume] in Central venous blood [facility] End: 04-20-2022 Carotid artery doppler assessment Ultrasound doppler carotid Vascular Ultrasound Routine Bilateral carotid artery stenosis 1 Occurrences starting 02/18/2021 until 04/20/2022 [facility] Comment on above: 1 Occurrences starting 02/18/2021 until 04/20/2022 End: 12-20-2023 Carotid artery doppler assessment Ultrasound doppler carotid Vascular Ultrasound Routine Bilateral carotid artery stenosis 1 Occurrences starting 10/19/2022 until 12/20/2023 [facility] Work Phone: Comment on above: 1 Occurrences starting 10/19/2022 until 12/20/2023 Cath plmt l hrt & ar ts w/njx & angio img s&i LEFT HEART CATH Cardiovascular stress test abnormal Fatigue, unspecified type SOB (shortness of breath) [facility] End: 02-28-2019 CBC and Differential CBC and Differential Routine Type 1 diabetes mellitus with diabetic neuropathy (HCC) 1 Occurrences starting 02/28/2018 until 02/28/2019 [facility] CBC panel - Blood by Automated count CBC Lab STAT As needed (Lab) for 1 Occurrences starting 11/26/2023 [facility] Work Phone: Comment on above: As needed (Lab) for 1 Occurrences starti ng 11/26/2023 End: 12-02-2023 CBC panel - Blood by Automated count CBC Lab STAT Every other day (Lab) for 3 Occurrences starting 11/28/2023 until 12/02/2023 [facility] Work Phone: Comment on above: Every other day (Lab) for 3 Occurrences starting 11/28/2023 until 12/02/2023 End: 10-14-2023 CBC W Auto Differential panel - Blood CBC and Auto Differential Lab Routine Morning draw (Lab) for 3 Occurrences starting 10/12/2023 until 10/14/2023, 2 completed [facility] Work Phone: Comment on above: Morning draw (Lab) for 3 Occurrences sta rting 10/12/2023 until 10/14/2023, 2 completed Cholesterol [Mass/volume] in Serum or Plasma [facility] Cholesterol in HDL [Mass/volume] in Serum or Plasma [facility] End: 11-11-2019 Complete blood count with white cell differential, manual CBC and Differential Routine Type 1 diabetes mellitus with diabetic neuropathy (HCC) 1 Occurrences starting 11/11/2018 until 11/11/2019 [facility] Comment on above: 1 Occurrences starting 11/11/2018 until 11/11/2019 End: 03-13-2020 Complete blood count with white cell differential, manual CBC and Differential Routine 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) 1 Occurrences starting 03/13/2019 until 03/13/2020 [facility] Comment on above: 1 Occurrences starting 03/13/2019 until 03/13/2020 End: 02-19-2022 Complete blood count with white cell differential, manual CBC and Differential Lab Routine Type 1 diabetes mellitus with diabetic polyneuropathy (HCC) 1 Occurrences starting 02/18/2021 until 02/19/2022 [facility] Comment on above: 1 Occurrences starting 02/18/2021 until 02/19/2022 End: 02-14-2023 Complete blood count with white cell differential, manual CBC and Differential Lab Routine Type 1 diabetes mellitus with diabetic neuropathy (HCC) 1 Occurrences starting 02/13/2022 until 02/14/2023 [facility] Work Phone: Comment on above: 1 Occurrences starting 02/13/2022 until 02/14/2023 End: 02-18-2025 Complete blood count with white cell differential, manual CBC and Differential Lab Routine Type 1 diabetes mellitus with diabetic neuropathy (HCC) 1 Occurrences starting 02/18/2024 until 02/18/2025 [facility] Comment on above: 1 Occurrences starting 02/18/2024 until 02/18/2025 End: 07-22-2025 Complete blood count with white cell differential, manual CBC and Differential Lab Routine Type 1 diabetes mellitus with diabetic neuropathy (HCC) 1 Occurrences starting 07/21/2024 until 07/22/2025 [facility] Comment on above: 1 Occurrences starting 07/21/2024 until 07/22/2025 End: 03-13-2026 Complete blood count with white cell differential, manual CBC and Differential Lab Routine Type 1 diabetes mellitus with diabetic neuropathy (HCC) 1 Occurrences starting 03/12/2025 until 03/13/2026 [facility] Comment on above: 1 Occurrences [...] (HCC) 1 Occurrences starting 07/05/2018 until 07/06/2019 [facility] Comment on above: 1 Occurrences starting 07/05/2018 until 07/06/2019 End: 11-11-2019 Comprehensive metabolic 2000 panel Comprehensive Metabolic Panel Routine Essential hypertension 1 Occurrences starting 11/11/2018 until 11/11/2019 [facility] Comment on above: 1 Occurrences starting 11/11/2018 until 11/11/2019 End: 07-17-2020 Comprehensive metabolic 2000 panel Comprehensive Metabolic Panel Lab Routine Type 1 diabetes mellitus with diabetic polyneuropathy (HCC) 1 Occurrences starting 07/17/2019 until 07/17/2020 [facility] Comment on above: 1 Occurrences starting 07/17/2019 until 07/17/2020 End: 11-16-2020 Comprehensive metabolic 2000 panel Comprehensive Metabolic Panel Lab Routine Type I diabetes mellitus with neurological manifestations, uncontrolled (HCC) 1 Occurrences starting 11/16/2019 until 11/16/2020 [facility] Comment on above: 1 Occurrences starting 11/16/2019 until 11/16/2020 End: 03-13-2020 Comprehensive metabolic 2000 panel Comprehensive Metabolic Panel Routine 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) 1 Occurrences starting 03/13/2019 until 03/13/2020 [facility] Comment on above: 1 Occurrences starting 03/13/2019 until 03/13/2020 End: 02-19-2022 Comprehensive metabolic 2000 panel - Serum or Plasma Comprehensive Metabolic Panel Lab Routine Type 1 diabetes mellitus with diabetic polyneuropathy (HCC) 1 Occurrences starting 02/18/2021 until 02/19/2022 [facility] Comment on above: 1 Occurrences starting 02/18/2021 until 02/19/2022 End: 02-14-2023 Comprehensive metabolic 2000 panel - Serum or Plasma Comprehensive Metabolic Panel Lab Routine Type 1 diabetes mellitus with diabetic neuropathy (HCC) 1 Occurrences starting 02/13/2022 until 02/14/2023 [facility] Comment on above: 1 Occurrences starting 02/13/2022 until 02/14/2023 End: 06-20-2023 Comprehensive metabolic 2000 panel - Serum or Plasma Comprehensive Metabolic Panel Lab Routine Type 1 diabetes mellitus with diabetic neuropathy (HCC) 1 Occurrences starting 06/19/2022 until 06/20/2023 [facility] Work Phone: Comment on above: 1 Occurrences starting 06/19/2022 until 06/20/2023 End: 02-18-2025 Comprehensive metabolic 2000 panel - Serum or Plasma Comprehensive Metabolic Panel Lab Routine Type 1 diabetes mellitus with diabetic neuropathy (HCC) 1 Occurrences starting 02/18/2024 until 02/18/2025 [facility] Work Phone: Comment on above: 1 Occurrences starting 02/18/2024 until 02/18/2025 End: 07-22-2025 Comprehensive metabolic 2000 panel - Serum or Plasma Comprehensive Metabolic Panel Lab Routine Type 1 diabetes mellitus with diabetic neuropathy (HCC) 1 Occurrences starting 07/21/2024 until 07/22/2025 [facility] Work Phone: Comment on above: 1 Occurrences starting 07/21/2024 until 07/22/2025 End: 11-14-2025 Comprehensive metabolic 2000 panel - Serum or Plasma Comprehensive Metabolic Panel Lab Routine Type 1 diabetes mellitus with diabetic neuropathy (HCC) 1 Occurrences starting 11/13/2024 until 11/14/2025 [facility] Work Phone: Comment on above: 1 Occurrences starting 11/13/2024 until 11/14/2025 End: 03-13-2026 Comprehensive metabolic 2000 panel - Serum or Plasma Comprehensive Metabolic Panel Lab Routine Type 1 diabetes mellitus with diabetic neuropathy (HCC) 1 Occurrences starting 03/12/2025 until 03/13/2026 [facility] Work Phone: Comment on above: 1 Occurrences starting 03/12/2025 until 03/13/2026 End: 02-28-2019 Comprehensive metabolic panel [AGGREGATE] Comprehensive Metabolic Panel Routine Type 1 diabetes mellitus with diabetic neuropathy (HCC) Essential hypertension 1 Occurrences starting 02/28/2018 until 02/28/2019 [facility] End: 10-30-2018 Comprehensive metabolic panel [AGGREGATE] Comprehensive Metabolic Panel Routine Type 1 diabetes mellitus with diabetic neuropathy (HCC) Essential hypertension Pure hypercholesterolemia 1 Occurrences starting 10/29/2017 until 10/30/2018 [facility] Work Phone: Creatinine [Mass/volume] in Serum or Plasma [facility] End: 11-26-2023 ECG 12 lead [facility] Service Area Work Phone: Comment on above: Once for 1 Occurrences starting 11/26/19 24 until 11/26/2023 Electrocardiogram, 12-lead PRN ACS symptoms Electrocardiogram, 12-lead PRN ACS symptoms ECG Routine As needed until discontinued starting 10/11/2023 [facility] Service Area Work Phone: Comment on above: As needed until discontinued starting Electrocardiogram, 12-lead PRN ACS symptoms Electrocardiogram, 12-lead PRN ACS symptoms ECG Routine As needed until discontinued starting 10/11/2023 [facility] Work Phone: Comment on above: As needed until discontinued starting Erythrocyte mean corpuscular volume determination [facility] End: 02-28-2019 External Lab Microalbumin/Creatinine External Lab Microalbumin/Creatinine Routine Type 1 diabetes mellitus with diabetic neuropathy (HCC) Essential hypertension 1 Occurrences starting 02/28/2018 until 02/28/2019 [facility] End: 11-11-2019 External Lab Microalbumin/Creatinine External Lab Microalbumin/Creatinine Routine Essential hypertension 1 Occurrences starting 11/11/2018 until 11/11/2019 [facility] Comment on above: 1 Occurrences starting 11/11/2018 until 11/11/2019 End: 02-19-2022 External Lab Microalbumin/Creatinine External Lab Microalbumin/Creatinine Lab Routine Type 1 diabetes mellitus with diabetic polyneuropathy (HCC) 1 Occurrences starting 02/18/2021 until 02/19/2022 [facility] Comment on above: 1 Occurrences starting 02/18/2021 until 02/19/2022 End: 02-14-2023 External Lab Microalbumin/Creatinine External Lab Microalbumin/Creatinine Lab Routine Type 1 diabetes mellitus with diabetic neuropathy (HCC) 1 Occurrences starting 02/13/2022 until 02/14/2023 [facility] Comment on above: 1 Occurrences starting 02/13/2022 until 02/14/2023 Glucose [Mass/volume ] in Serum or Plasma POCT GLUCOSE Point of Care Testing Routine 4x daily - AC and at bedtime until discontinued starting 10/11/2023 [facility] Work Phone: Comment on above: 4x daily - AC and at bedtime until disco ntinued starting 10/11/2023 End: 10-15-2023 Glucose [Mass/volume] in Serum or Plasma POCT GLUCOSE Point of Care Testing Routine 4 times daily before meals and at bedtime for 3 Days starting 10/12/2023 until 10/15/2023 [facility] Work Phone: Comment on above: 4 times daily before meals and at bedtim e for 3 Days starting 10/12/2023 until 10/15/2023 Glucose [Mass/volume ] in Serum or Plasma [facility] End: 02-28-2019 HbA1c Hemoglobin A1c Routine Type 1 diabetes mellitus with diabetic neuropathy (HCC) Essential hypertension 1 Occurrences starting 02/28/2018 until 02/28/2019 [facility] End: 10-30-2018 HbA1c Hemoglobin A1c Routine Type 1 diabetes mellitus with diabetic neuropathy (HCC) Essential hypertension Pure hypercholesterolemia 1 Occurrences starting 10/29/2017 until 10/30/2018 [facility] Work Phone: End: 07-17-2020 HbA1c (Bld) [Mass fraction] Hemoglobin A1c Lab Routine Type 1 diabetes mellitus with diabetic polyneuropathy (HCC) 1 Occurrences starting 07/17/2019 until 07/17/2020 [facility] Comment on above: 1 Occurrences starting 07/17/2019 until 07/17/2020 End: 11-16-2020 HbA1c (Bld) [Mass fraction] Hemoglobin A1c Lab Routine Type I diabetes mellitus with neurological manifestations, uncontrolled (HCC) 1 Occurrences starting 11/16/2019 until 11/16/2020 [facility] Comment on above: 1 Occurrences starting 11/16/2019 until 11/16/2020 End: 03-13-2020 HbA1c (Bld) [Mass fraction] Hemoglobin A1c Routine 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) 1 Occurrences starting 03/13/2019 until 03/13/2020 [facility] Comment on above: 1 Occurrences starting 03/13/2019 until 03/13/2020 Hematocrit [Volume Fraction] of Blood [facility] Hemoglobin [Mass/volume] in Blood [facility] End: 02-19-2022 Hemoglobin A1c/Hemoglobin.total in Blood Hemoglobin A1c Lab Routine Type 1 diabetes mellitus with diabetic polyneuropathy (HCC) 1 Occurrences starting 02/18/2021 until 02/19/2022 [facility] Comment on above: 1 Occurrences starting 02/18/2021 until 02/19/2022 End: 02-14-2023 Hemoglobin A1c/Hemoglobin.total in Blood Hemoglobin A1c Lab Routine Type 1 diabetes mellitus with diabetic neuropathy (HCC) 1 Occurrences starting 02/13/2022 until 02/14/2023 [facility] Comment on above: 1 Occurrences starting 02/13/2022 until 02/14/2023 End: 06-20-2023 Hemoglobin A1c/Hemoglobin.total in Blood Hemoglobin A1c Lab Routine Type 1 diabetes mellitus with diabetic neuropathy (HCC) 1 Occurrences starting 06/19/2022 until 06/20/2023 [facility] Comment on above: 1 Occurrences starting 06/19/2022 until 06/20/2023 End: 02-18-2025 Hemoglobin A1c/Hemoglobin.total in Blood Hemoglobin A1c Lab Routine Type 1 diabetes mellitus with diabetic neuropathy (HCC) 1 Occurrences starting 02/18/2024 until 02/18/2025 [facility] Comment on above: 1 Occurrences starting 02/18/2024 until 02/18/2025 End: 07-22-2025 Hemoglobin A1c/Hemoglobin.total in Blood Hemoglobin A1c Lab Routine Type 1 diabetes mellitus with diabetic neuropathy (HCC) 1 Occurrences starting 07/21/2024 until 07/22/2025 [facility] Comment on above: 1 Occurrences starting 07/21/2024 until 07/22/2025 End: 11-14-2025 Hemoglobin A1c/Hemoglobin.total in Blood Hemoglobin A1c Lab Routine Type 1 diabetes mellitus with diabetic neuropathy (HCC) 1 Occurrences starting 11/13/2024 until 11/14/2025 [facility] Comment on above: 1 Occurrences starting 11/13/2024 until 11/14/2025 End: 03-13-2026 Hemoglobin A1c/Hemoglobin.total in Blood Hemoglobin A1c Lab Routine Type 1 diabetes mellitus with diabetic neuropathy (HCC) 1 Occurrences starting 03/12/2025 until 03/13/2026 [facility] Comment on above: 1 Occurrences starting 03/12/2025 until 03/13/2026 End: 07-06-2019 Hemoglobin A1c/Hemoglobin.total mass fraction (Bld) Hemoglobin A1c Routine Type 1 diabetes mellitus with diabetic neuropathy (HCC) 1 Occurrences starting 07/05/2018 until 07/06/2019 [facility] Comment on above: 1 Occurrences starting 07/05/2018 until 07/06/2019 End: 11-11-2019 Hemoglobin A1c/Hemoglobin.total mass fraction (Bld) Hemoglobin A1c Routine Type 1 diabetes mellitus with diabetic neuropathy (HCC) 1 Occurrences starting 11/11/2018 until 11/11/2019 [facility] Comment on above: 1 Occurrences starting 11/11/2018 until 11/11/2019 End: 06-18-2018 Hemoglobin A1c/Hemoglobin.total mass fraction (Bld) Hemoglobin A1c Routine Type 1 diabetes mellitus with diabetic neuropathy (HCC) 1 Occurrences starting 06/17/2017 until 06/18/2018 [facility] Work Phone: Comment on above: 1 Occurrences starting 06/17/2017 until 06/18/2018 Heparin unfractionat ed [Units/volume] in Platelet poor plasma by Chromogenic method [facility] Work Phone: Comment on above: As needed (Lab) for 1 Occurrences starti ng 11/26/2023 As needed (Lab) for 30 Occurrences starting 11/26/2023 End: 10-13-2023 Home O2 eval (desaturation screen) Home O2 eval (desaturation screen) Respiratory Care Routine Once for 1 Occurrences starting 10/13/2023 until 10/13/2023 [facility] Service Area Work Phone: Comment on above: Once for 1 Occurrences starting 10/13/20 until 10/13/2023 Legionella pneumophi la Ag [Presence] in Urine [facility] Leukocytes [#/volume ] in Blood [facility] End: 11-11-2019 Lipid 1996 panel Lipid Panel Routine Type 1 diabetes mellitus with diabetic neuropathy (HCC) 1 Occurrences starting 11/11/2018 until 11/11/2019 [facility] Comment on above: 1 Occurrences starting 11/11/2018 until 11/11/2019 End: 07-17-2020 Lipid 1996 panel Lipid Panel Lab Routine Pure hypercholesterolemia 1 Occurrences starting 07/17/2019 until 07/17/2020 [facility] Comment on above: 1 Occurrences starting 07/17/2019 until 07/17/2020 End: 02-19-2022 Lipid 1996 panel - Serum or Plasma Lipid Panel Lab Routine Type 1 diabetes mellitus with diabetic polyneuropathy (HCC) 1 Occurrences starting 02/18/2021 until 02/19/2022 [facility] Comment on above: 1 Occurrences starting 02/18/2021 until 02/19/2022 End: 02-18-2025 Lipid 1996 panel - Serum or Plasma Lipid Panel Lab Routine Type 1 diabetes mellitus with diabetic neuropathy (HCC) 1 Occurrences starting 02/18/2024 until 02/18/2025 [facility] Comment on above: 1 Occurrences starting 02/18/2024 until 02/18/2025 End: 07-22-2025 Lipid 1996 panel - Serum or Plasma Lipid Panel Lab Routine Type 1 diabetes mellitus with diabetic neuropathy (HCC) 1 Occurrences starting 07/21/2024 until 07/22/2025 [facility] Comment on above: 1 Occurrences starting 07/21/2024 until 07/22/2025 End: 11-14-2025 Lipid 1996 panel - Serum or Plasma Lipid Panel Lab Routine Type 1 diabetes mellitus with diabetic neuropathy (HCC) Pure hypercholesterolemia 1 Occurrences starting 11/13/2024 until 11/14/2025 [facility] Comment on above: 1 Occurrences starting 11/13/2024 until 11/14/2025 End: 03-13-2026 Lipid 1996 panel - Serum or Plasma Lipid Panel Lab Routine Type 1 diabetes mellitus with diabetic neuropathy (HCC) 1 Occurrences starting 03/12/2025 until 03/13/2026 [facility] Comment on above: 1 Occurrences starting 03/12/2025 until 03/13/2026 End: 02-28-2019 Lipid panel Lipid Panel Routine Type 1 diabetes mellitus with diabetic neuropathy (HCC) 1 Occurrences starting 02/28/2018 until 02/28/2019 [facility] Low density lipoprot ein cholesterol measurement [facility] Mean corpuscular hemoglobin concentration determination [facility] Mean corpuscular hemoglobin determination [facility] Measurement of renal function [facility] Neutrophil count [facility] Neutrophil percent differential count [facility] Noninvasive Ventilation Noninvas frank Ventilation Respiratory Care Routine For RT frequency use only for continuous procedures with task-based reminders at 8a and 8p until discontinued starting 11/26/2023 [facility] Work Phone: Comment on above: For RT frequency use only for continuous procedures with task-based reminders at 8a and 8p until discontinued starting 11/26/2023 Patient Education Hemodialysis E D Hemodialysis [facility] Work Phone: Patient referral [facility] Work Phone: Platelets [#/volume] in Blood [facility] Potassium measurement [facility] Procalcitonin [Mass/volume] in Serum or Plasma by Immunoassay [facility] End: 03-12-2020 Prostate specific Ag [Mass/Vol] PSA, Screen Routine Prostate cancer screening 1 Occurrences starting 03/13/2019 until 03/12/2020 [facility] Comment on above: 1 Occurrences starting 03/13/2019 until 03/12/2020 End: 02-13-2023 Prostate specific Ag [Mass/volume] in Serum or Plasma PSA, Screen Lab Routine Prostate cancer screening 1 Occurrences starting 02/13/2022 until 02/13/2023 [facility] Comment on above: 1 Occurrences starting 02/13/2022 until 02/13/2023 Prothrombin time (PT) Protime-IN R Lab STAT As needed (Lab) for 1 Occurrences starting 11/26/2023 [facility] Work Phone: Comment on above: As needed (Lab) for 1 Occurrences starti ng 11/26/2023 End: 10-29-2018 PSA, Screen PSA, Screen Routine Prostate cancer screening 1 Occurrences starting 10/29/2017 until 10/29/2018 [facility] Work Phone: Red blood cell count [facility] Red cell distributio n width determination [facility] End: 10-11-2023 Respiratory care eval and treat Respiratory care eval and treat Respiratory Care Routine Once for 1 Occurrences starting 10/11/2023 until 10/11/2023 [facility] Work Phone: Comment on above: Once for 1 Occurrences starting 10/11/20 23 until 10/11/2023 Respiratory pathogen s DNA and RNA panel - Respiratory specimen by ALICE with probe detection [facility] Serum chloride measurement [facility] Sodium measurement [facility] End: 10-21-2024 SPECT Heart perfusion NM Myocardial Perfusion Multiple SPECT Imaging Routine Congestive heart failure, unspecified HF chronicity, unspecified heart failure type (HCC) 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 1 Occurrences starting 10/21/2023 until 10/21/2024 [facility] Work Phone: Comment on above: 1 Occurrences starting 10/21/2023 until 10/21/2024 End: 11-11-2019 T4 free mass conc T4, Free Routine Type 1 diabetes mellitus with diabetic neuropathy (HCC) 1 Occurrences starting 11/11/2018 until 11/11/2019 [facility] Comment on above: 1 Occurrences starting 11/11/2018 until 11/11/2019 End: 02-18-2025 Thyrotropin [Units/volume] in Serum or Plasma TSH Lab Routine Type 1 diabetes mellitus with diabetic neuropathy (HCC) 1 Occurrences starting 02/18/2024 until 02/18/2025 [facility] Comment on above: 1 Occurrences starting 02/18/2024 until 02/18/2025 End: 07-22-2025 Thyrotropin [Units/volume] in Serum or Plasma TSH Lab Routine Type 1 diabetes mellitus with diabetic neuropathy (HCC) 1 Occurrences starting 07/21/2024 until 07/22/2025 [facility] Comment on above: 1 Occurrences starting 07/21/2024 until 07/22/2025 End: 11-14-2025 Thyrotropin [Units/volume] in Serum or Plasma TSH Lab Routine Type 1 diabetes mellitus with diabetic neuropathy (HCC) 1 Occurrences starting 11/13/2024 until 11/14/2025 [facility] Comment on above: 1 Occurrences starting 11/13/2024 until 11/14/2025 Thyrotropin [Units/volume] in Serum or Plasma TSH with Reflex Free T4 Lab Routine 02/12/2025 10:25 AM EDT [facility] Work Phone: End: 03-13-2026 Thyrotropin [Units/volume] in Serum or Plasma TSH Lab Routine Type 1 diabetes mellitus with diabetic neuropathy (HCC) 1 Occurrences starting 03/12/2025 until 03/13/2026 [facility] Comment on above: 1 Occurrences starting 03/12/2025 until 03/13/2026 End: 11-11-2019 Thyrotropin Qn TSH Routine Type 1 diabetes mellitus with diabetic neuropathy (HCC) 1 Occurrences starting 11/11/2018 until 11/11/2019 [facility] Comment on above: 1 Occurrences starting 11/11/2018 until 11/11/2019 End: 02-28-2019 Thyroxine (T4) free T4, Free Routine Type 1 diabetes mellitus with diabetic neuropathy (HCC) 1 Occurrences starting 02/28/2018 until 02/28/2019 [facility] End: 02-18-2025 Thyroxine (T4) free [Mass/volume] in Serum or Plasma T4, Free Lab Routine Type 1 diabetes mellitus with diabetic neuropathy (HCC) 1 Occurrences starting 02/18/2024 until 02/18/2025 [facility] Comment on above: 1 Occurrences starting 02/18/2024 until 02/18/2025 End: 07-22-2025 Thyroxine (T4) free [Mass/volume] in Serum or Plasma T4, Free Lab Routine Type 1 diabetes mellitus with diabetic neuropathy (HCC) 1 Occurrences starting 07/21/2024 until 07/22/2025 [facility] Comment on above: 1 Occurrences starting 07/21/2024 until 07/22/2025 End: 11-14-2025 Thyroxine (T4) free [Mass/volume] in Serum or Plasma T4, Free Lab Routine Type 1 diabetes mellitus with diabetic neuropathy (HCC) 1 Occurrences starting 11/13/2024 until 11/14/2025 [facility] Comment on above: 1 Occurrences starting 11/13/2024 until 11/14/2025 End: 03-13-2026 Thyroxine (T4) free [Mass/volume] in Serum or Plasma T4, Free Lab Routine Type 1 diabetes mellitus with diabetic neuropathy (HCC) 1 Occurrences starting 03/12/2025 until 03/13/2026 [facility] Comment on above: 1 Occurrences starting 03/12/2025 until 03/13/2026 Total cholesterol:HD L ratio measurement [facility] Total protein measurement [facility] Triglycerides measurement [facility] End: 02-28-2019 TSH TSH Routine Type 1 diabetes mellitus with diabetic neuropathy (HCC) 1 Occurrences starting 02/28/2018 until 02/28/2019 [facility] Urea nitrogen [Mass/volume] in Serum or Plasma [facility] Urine culture [facility] VLDL cholesterol measurement [facility] Immunizations Immunization Date Immunization Notes Care Provider Fa cility 07-03-2020 zoster vaccine recombinant Ayanna Albert DO Work Phone: [facility] Work Phone: 04-17-2020 zoster vaccine recombinant Ayanna Young DO Work Phone: [facility] Work Phone: 03-31-2019 pneumococcal polysaccharide vaccine, 23 valent Ayanna Albert DO Work Phone: [facility] Work Phone: 01-31-2018 pneumococcal conjuga te vaccine, 13 valent Ayanna Albert DO Work Phone: [facility] Work Phone: 11-10-2016 HEMOGLOBIN A1C Ya Parker [facility] Work Phone: Payers Date Payer Category Payer Self-pay [id number] 2021 Medicare (Managed Care) [employer]ICARE [id number] 2021 Medicare PPO [employer] MEDICARE P JAYDON (PPO) [id number] 2021 Private Health Insurance [id number] 2015 Medicare [id number] 2015 Medicare [id number] 2015 Medicare [id number]. [id number] 2015 Medicare [id number] 2.16.840.1.770321.3.249.13 1943 Unknown [id number] 2.16.840.1.866160.3.579.2. 1068 1943 Unknown [id number] 2.16.840.1.895952.3.579.2. 1068 1943 Unknown [id number] 2.16.840.1.868691.3.579.2. 1068 1943 Unknown [id number] 2.16.840.1.703576.3.579.2. 1068 1943 Unknown [id number] 2.16.840.1.957314.3.579.2. 1068 1943 Unknown [id number] 2.16.840.1.649602.3.579.2. 1068 1943 Unknown [id number] 2.16.840.1.111723.3.579.2. 1068 1943 Unknown [id number] 2.16.840.1.745477.3.579.2. 1068 1943 Unknown [id number] 2.16.840.1.834456.3.579.2. 1068 1943 Unknown [id number] 2.16.840.1.156582.3.579.2. 1068 1943 Unknown [id number] 2.16.840.1.926763.3.579.2. 1068 1943 Unknown [id number] 2.16.840.1.010497.3.579.2. 356 1943 Unknown [id number] 2.16.840.1.206178.3.579.2. 1244 1943 Unknown [id number] 2.16.840.1.003292.3.579.2. 1244 1943 Unknown [id number] 2.16.840.1.773959.3.579.2. 1245 1943 Unknown [id number] 2.16.840.1.163442.3.579.2. 1244 1943 Unknown [id number] 2.16.840.1.813804.3.579.2. 1244 1943 Unknown [id number] 2.16.840.1.050741.3.579.2. 90 1943 Unknown [id number] 2.16.840.1.710191.3.579.2. 90 1943 Unknown [id number] 2.16.840.1.006592.3.579.2. 1242 1943 Unknown [id number] 2.16.840.1.743225.3.579.2. 1943 Unknown [id number] 2.16.840.1.206210.3.579.2. 1943 Unknown [id number] 2.16.840.1.391259.3.579.2. 1943 Unknown [id number] 2.16.840.1.019852.3.579.2. 1943 Unknown [id number] 2.16.840.1.790476.3.579.2. 1943 Unknown [id number] 2.16.840.1.938876.3.579.2. 90 1943 Unknown [id number] 2.16.840.1.300619.3.579.2. 90 1943 Unknown [id number] 2.16.840.1.728719.3.579.2. 90 1943 Unknown [id number] 2.16.840.1.159227.3.579.2. 90 1943 Unknown [id number] 2.16.840.1.433236.3.579.2. 903 1943 Unknown [id number] 2.16.840.1.924578.3.579.2. 903 1943 Unknown [id number] 2.16.840.1.178851.3.579.2. 903 1943 Unknown [id number] 2.16.840.1.030336.3.579.2. 903 1943 Unknown [id number] 2.16.840.1.124657.3.579.2. 903 Unknown [employer] Unknown [id number] 2.16.840.1.181864.3.579.2. 462 Unknown [id number] 2.16.840.1.748391.3.579.2. 462 Unknown [id number] 2.16840.1.124599.3.579.2. 462 Unknown [id number] 2.16.840.1.030392.3.579.2. 462 Unknown [id number] 2.16.840.1.823840.3.579.2. 462 Unknown [id number] 2.16.840.1.902773.3.579.2. 462 Unknown [id number] 2.16.840.1.361857.3.579.2. 462 Unknown [id number] 2.16840.1.339841.3.579.2. 462 Unknown [id number] 2.16.840.1.834557.3.579.2. 462 Unknown [id number] 2.16.840.1.174219.3.579.2. 462 Unknown [id number] 2.16.840.1.398530.3.579.2. 462 Unknown [id number] 2.16.840.1.057824.3.579.2. 462 Unknown [id number] 2.16.840.1.814117.3.579.2. 462 Unknown [id number] 2.16.840.1.565091.3.579.2. 462 Unknown [id number] 2.16.840.1.883957.3.579.2. 462 Unknown [id number] 2.16.840.1.361537.3.579.2. 462 Unknown [id number] 2.16.840.1.628478.3.579.2. 462 Unknown [id number] 2.16.840.1.710996.3.579.2. 462 Unknown [id number] 2.16.840.1.733346.3.579.2. 462 Unknown [id number] 2.16.840.1.389868.3.579.2. 462 Unknown [id number] 2.16.840.1.709668.3.579.2. 462 Unknown [id number] 2.16.840.1.083056.3.579.2. 462 Unknown [id number] 2.16.840.1.543382.3.579.2. 462 Unknown [id number] 2.16.840.1.003386.3.579.2. 462 Unknown [id number] 2.16.840.1.399256.3.579.2. 462 Unknown [id number] 2.16.840.1.305172.3.579.2. 462 Social History Date Type Detail Facility Start: 11-01-1965 End: 11-09-2024 Tobacco smoking status PRIS Current every day smoker [employer] Work Phone: Start: 02-28-2018 End: 02-28-2025 Cigarettes smoked current (pack per day) - Reported [facility] Start: 1945 Sex Assigned At Not on file [employer] Work Phone: Start: 07-17-2019 End: 03-12-2025 Alcohol intake Current non-drinker of alcohol (finding) [facility] Start: 06-18-2020 End: 11-09-2024 Tobacco use and exposure Never used [facility] Start: 02-03-2022 End: 02-26-2025 Exposure to SARS-CoV-2 (event) Not sure [facility] Start: 11-01-1965 History of tobacco use Cigarette Smoker [facility] Start: 10-19-2022 End: 02-28-2025 Tobacco use panel [facility] Start: 08-25-2023 End: 02-26-2025 Alcohol intake Lifetime non-drinker (finding) [facility] Work Phone: How hard is it for y ou to pay for the very basics like food, housing, medical care, and heating Not hard at all [facility] In the past 12 month s, was there a time when you were not able to pay the mortgage or rent on time? No [facility] Work Phone: Start: 1945 Sex Assigned At Male [facility] Start: 10-11-2023 Gender identity Identifies as male gender (finding) [facility] [facility] Work Phone: Start: 10-11-2023 Sexual orientation Heterosexual (finding) [facility] Work Phone: Start: 08-05-2021 Tobacco smoking status NHIS Unknown if ever smoked [facility] (I/We) worried sarah er (my/our) food would run out before (I/we) got money to buy more. Never true [facility] Start: 02-09-2025 Sex Male (finding) [facility] Medical Equipment Procedure Code Equipment Code Equipment Origin al Text Equipment Identifier Dates [id number] Start: 08-12-2015 End: 03-13-2019 USE DIRECTED FOUR TIMES A DAY FOR INSULIN INJECTION [id number] Start: 09-12-2018 E10.9 Use as directed 4 times per day. [id number] Start: 06-10-2017 use as directed 4 times per day for insulin injection. [id number] Start: 06-17-2017 use as directed 4 times per day for insulin injection. [id number] Start: 05-19-2016 End: 06-17-2017 Use as directed 4 times per day. Dx E10.9 Patient with type 1 DM on insulin with hypoglycemia. Needs to check BG QID; takes insulin QID . [id number] Start: 03-13-2019 Use as directed 4x daily DX code E10.65 . [id number] Start: 10-20-2019 Use as directed 4 times per day. Dx E10.9 Patient with type 1 DM on insulin with hypoglycemia. Needs to check BG QID; takes insulin QID . [id number] Start: 03-15-2020 End: 02-18-2021 Use as directed 4x daily DX code E10.65 . [id number] Start: 10-07-2020 End: 10-08-2021 Use as directed 4 times per day. Dx E10.9 Patient with type 1 DM on insulin with hypoglycemia. Needs to check BG QID; takes insulin QID . [id number] Start: 02-18-2021 End: 02-13-2022 Use as directed 4x daily DX code E10.65 . [id number] Start: 10-09-2021 End: 12-31-2022 Use as directed 4 times per day. Dx E10.9 Patient with type 1 DM on insulin with hypoglycemia. Needs to check BG QID; takes insulin QID . [id number] Start: 02-13-2022 End: 02-19-2023 Use as directed 4x daily DX code E10.65 . [id number] Start: 12-31-2022 Use as directed 4 times per day. Dx E10.9 Patient with type 1 DM on insulin with hypoglycemia. Needs to check BG QID; takes insulin QID . [id number] Start: 02-19-2023 End: 03-06-2024 BD Jolynn 2nd Gen Pen Needle 32 gauge x 5/32 needle [id number] Start: 07-01-2023 Use as directed 4 times per day. Dx E10.9 Patient with type 1 DM on insulin with hypoglycemia. Needs to check BG QID; takes insulin QID . [id number] Start: 02-19-2023 Use as directed 4x daily Dx code E10.65 . [id number] Start: 12-01-2023 End: 12-08-2024 TEST BLOOD GLUCO SE FOUR TIMES DAILY E10.65 . [id number] Start: 03-06-2024 End: 04-16-2025 Use as directed 4x daily Dx code E10.65 . [id number] Start: 12-08-2024 Blood Sugar Diagnostic (Contour Next Test Strips) strip Start: 09-12-2024 Blood Sugar Diagnostic (Contour Next Test Strips) strip Start: 09-12-2024 Blood Sugar Diagnostic (Contour Next Test Strips) strip Start: 09-12-2024 TEST BLOOD GLUCO SE FOUR TIMES DAILY E10.65 . [id number] Start: 04-17-2025 Goals Date Patient Goal Desired Activity /State Functional Status Date Assessment Result Facility 04-10-2025 Functional status Chair [facility] Work Phone: Mental Status Date Assessment Result Facility 04-10-2025 Cognitive function Voice/Name [facility] Work Phone: Clinical Notes 02-18-2021 to 04-10-2025 Note Date & Type Note Facility 04-10-2025 Discharge summary [facility] 04-10-2025 Note [facility] 04-10-2025 Progress note Note Date/Time April 10, 2025 12:27pm [facility] Medical Records Department [address] [place] [address] Progress Note - Nephrology 04/10/25 1226 MR#: [id number] Acct: [id number] Name: ENOC ARMANDO Rep #:[id number] : 1945 79 From: Denisha tirado MD PCP: Dr. Ryley Jeter MD Status:ADM IN Location: [place] [address] Subjective Subjective no new events Objective Data [...] 82.6 H, Lymph % (Auto) 9.4 L, Pecos % (Auto) 7.0, Eos % (Auto) 0.1, [...] stage III (followed by Dr. Albert in [place]), COPD, diabetes mellitus admitted to the hospital [...] Cosigner Signature (if applicable): CC: ~ Signed [facility] Work Phone: 1([phone]) 594-102906-10-2025 Progress note [facility] Medical Records Department [address] [place] [address] Progress Note - Nephrology 04/10/25 1226 MR#: [id number] Acct: [id number] Name: ENOC ARMANDO Rep #:[id number] : 1945 79 From: Denisha tirado MD PCP: Dr. Ryley Jeter MD Status:ADM IN Location: [place] [address] Subjective Subjective no new events Objective Data [...] 82.6 H, Lymph % (Auto) 9.4 L, Pecos % (Auto) 7.0, Eos % (Auto) 0.1, [...] stage III (followed by Dr. Albert in [place]), COPD, diabetes mellitus admitted to the hospital [...] Cosigner Signature (if applicable): CC: ~ Signed [facility]06-09-2025 Progress note Author Grace Arnold [facility] Note Date/Time April 09, 2025 6:52p m [facility] Medical Records Department [address] [place] [address] Progress Note 04/09/25 1501 MR#: [id number] Acct: [id number] Name: ENOC ARMANDO Rep #:[id number] : 1945 79 From: Grace Arnold MD PCP: Dr. Ryley Jeter MD Status:ADM IN Location: [place] [address] Subjective Subjective Patient seen and examined in the presence of his nurse. He had no complaints andhad an uneventful night. Review of systems is otherwise negative. He is requesting to go home if he is not having dialysis. 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 He [...] 77.6 H, Lymph % (Auto) 14.1 L, Pecos % (Auto) 7.4, Eos % (Auto) 0.1, [...] Cardiology was consulted and records requested from [facility] showed he had cardiac cath at [facility] 2 years ago and had 2 blockages [...] prophylaxis: heparin Charges/Coding Visit Charges Inpatient E&M: 35757 Subs Hosp L2 04/09/25 1852 <Electronically signed by Grace Arnold MD> Grace Arnold MD Cosigner Signature (if applicable): CC: ~ Signed [facility] Work Phone: 1(791) 868-555806-09-2025 Progress note [facility] Medical Records Department [address] [place] [address] Progress Note 04/09/25 1501 MR#: [id number] Acct: [id number] Name: ENOC ARMANDO Rep #:[id number] : 1945 79 From: Grace Arnold MD PCP: Dr. Ryley Jeter MD Status:ADM IN Location: [place] [address] Subjective Subjective Patient seen and examined in the presence of his nurse. He had no complaints andhad an uneventful night. Review of systems is otherwise negative. He is requesting to go home if he is not having dialysis. 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 He [...] 77.6 H, Lymph % (Auto) 14.1 L, Pecos % (Auto) 7.4, Eos % (Auto) 0.1, [...] Cardiology was consulted and records requested from [facility] showed he had cardiac cath at [facility] 2 years ago and had 2 blockages which were not amenable to treatment. * His troponins were slightly elevated. Conservative management as per cardiology. #MADNONA on CKD stage III now dialysis dependent [...] prophylaxis: heparin Charges/Coding Visit Charges Inpatient E&M: 48740 Subs Hosp L2 04/09/25 1852 Grace Arnold MD Cosigner Signature (if applicable): CC: ~ Signed [facility]06-09-2025 Progress note Author Denisha Thompson [facility] Note Date/Time April 09, 2025 10:39 am [facility] Medical Records Department [address] [place] [address] Progress Note - Nephrology 04/09/25 1037 MR#: [id number] Acct: [id number] Name: ENOC ARMANDO Rep #:[id number] : 1945 79 From: Denisha tirado MD PCP: Dr. Ryley Jeter MD Status:ADM IN Location: [place] [address] Subjective Subjective No new complaints today. Urine [...] 77.6 H, Lymph % (Auto) 14.1 L, Pecos % (Auto) 7.4, Eos % (Auto) 0.1, [...] stage III (followed by Dr. Albert in [place]), COPD, diabetes mellitus admitted to the hospital [...] Cosigner Signature (if applicable): CC: ~ Signed [facility] Work Phone: 1(666) 830-613006-09-2025 Progress note [facility] Medical Records Department [address] [place] [address] Progress Note - Nephrology 04/09/25 1037 MR#: [id number] Acct: [id number] Name: ENOC ARMANDO Rep #:[id number] : 1945 79 From: Denisha tirado MD PCP: Dr. Ryley Jeter MD Status:ADM IN Location: [place] [address] Subjective Subjective No new complaints today. Urine [...] 77.6 H, Lymph % (Auto) 14.1 L, Pecos % (Auto) 7.4, Eos % (Auto) 0.1, [...] stage III (followed by Dr. Albert in [place]), COPD, diabetes mellitus admitted to the hospital for acute hypoxic respiratory failure, multifactorial from COPD and/or pneumonia and/or possible heart failure contri buting. Nephrology consulted in view of elevated creatinine. Baseline creatinine is around 1.8 mg/dL range. Creatinine was 1.8 on admission received contrast on admit Renal US no hydronephrosis UA showed leukocyte esterase, RBC, 100 protein - presumably MAODNNA due to contrast nephropathy vs ATN. due [...] Cosigner Signature (if applicable): CC: ~ Signed [facility]06-09-2025 Progress note Author [facility] Jaiden [facility] Note Date/Time April 08, 2025 10:57 pm [facility] Medical Records Department [address] [place] [address] Progress Note - Hospitalist 04/08/252256 MR#: [id number] Acct: [id number] Name: ARMANDO,ENOC E Rep #:[id number] : 1945 79 From: Dyana Hwang MD PCP: Dr. Ryley Jeter MD Status:ADM IN Location: [place] [address] Hospitalist Note BS elevated, given ISS, repeat check remains elevated, will give an additional 15 u now and recheck 1-2 hours. 04/08/252256 <Electronically signed by Dyana Hwang MD> Cosigner Signature (if applicable): CC: ~ Signed [facility] Work Phone: 1(182) 686-756506-08-2025 Progress note [facility] Medical Records Department [address] [place] [address] Progress Note - Hospitalist 04/08/252256 MR#: [id number] Acct: [id number] Name: ENOC ARMANDO Rep #:[id number] : 1945 79 From: Dyana Hwang MD PCP: Dr. Ryley Jeter MD Status:ADM IN Location: [place] [address] Hospitalist Note BS elevated, given ISS, repeat check remains elevated, will give an additional 15 u now and recheck1-2 hours. 04/08/252256 Cosigner Signature (if applicable): CC: ~ Signed [facility]06-08-2025 Progress note Author Jose Moore [facility] Note Date/Time April 08, 2025 10:37 am [facility] Medical Records Department [address] [place] [address] Progress Note - Hospitalist 04/08/25 1026 MR#: [id number] Acct: [id number] Name: ENOC ARMANDO Rep #:[id number] : 1945 79 From: Jose lui MD PCP: Dr. Ryley Jeter MD Status:ADM IN Location: [place] [address] Subjective Subjective Feels better today than he [...] 88.0 H, Lymph % (Auto) 7.3 L, Pecos % (Auto) 4.2, Eos % (Auto) 0.0, [...] a heart cath 2 years ago at [facility] with 2 blockages that could not be [...] DVT: SCDs Charges/Coding Visit Charges Inpatient E&M: 14901 Subs Hosp L2 04/08/25 1037 <Electronically signed by Jose Moore MD> Cosigner Signature (if applicable): CC: ~ Signed [facility] Work Phone: 1(677) 855-785106-08-2025 Progress note [facility] Medical Records Department [address] [place] [address] Progress Note - Hospitalist 04/08/25 1026 MR#: [id number] Acct: [id number] Name: ENOC ARMANDO Rep #:[id number] : 1945 79 From: Jose lui MD PCP: Dr. Ryley Jeter MD Status:ADM IN Location: [place] [address] Subjective Subjective Feels better today than he [...] 88.0 H, Lymph % (Auto) 7.3 L, Pecos % (Auto) 4.2, Eos % (Auto) 0.0, [...] a heart cath 2 years ago at [facility] with 2 blockages that could not be [...] DVT: SCDs Charges/Coding Visit Charges Inpatient E&M: 85450 Subs Hosp L2 04/08/25 1037 Cosigner Signature (if applicable): CC: ~ Signed [facility]06-07-2025 Progress note Author Nate Forbes [facility] Note Date/Time April 07, 2025 5:18p m [facility] Medical Records Department [address] [place] [address] Progress 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 Ryley Jeter MD Status:ADM IN Location: [place] [address] Objective Data Objective Data Vital Signs: Vital [...] mls/hr 04/03/25 05:18 04/06/25 14:45 IV Infused .[id number] PRN Infusion Saline Flush Sodium Chloride 250 mls @ 15 mls/hr 04/03/25 05:18 IV .[id number] PRN Additional IVPB Infusion Dextrose 250 mls [...] Hcl 0.4 Mg Capsule PO 0.4 mg Ayla@6305 [facility] Administration Lab / Micro Data 04/07/25 [...] 79.0 H, Lymph % (Auto) 12.6 L, Pecos % (Auto) 8.0, Eos % (Auto) 0.1, [...] per nephrology yesterday. Cont recommendations as per pulmonary/marketing administrator note yesterday. We will monitor peripherally over the weekend, but please call us any time if questions or if clinical worsening. 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 Ryley Jeter MD Status:ADM IN Location: [place] [address]- 1 Objective Data Objective Data Vital Signs: [...] 10 Mg Tablet PO 10 mg 1200 DIID Administration Protocol Aspirin 81 mg 04/03/25 08:00 [...] mls/hr 04/03/25 05:18 04/06/25 14:45 IV Infused .[id number] PRN Infusion Saline Flush Sodium Chloride 250 mls @ 15 mls/hr 04/03/25 05:18 IV .[id number] PRN Additional IVPB Infusion Dextrose 250 mls [...] Hcl 0.4 Mg Capsule PO 0.4 mg Simrana@1737 [facility] Administration Lab / Micro Data 04/07/25 [...] 79.0 H, Lymph % (Auto) 12.6 L, Pecos % (Auto) 8.0, Eos % (Auto) 0.1, [...] per nephrology yesterday. Cont recommendations as per pulmonary/marketing administrator note yesterday. We will monitor peripherally over the weekend, but please call us any time if questions or if clinical worsening. Nate Forbes MD 04/07/25 4727 Cosigner Signature (if applicable): CC: ~ Signed [facility]06-07-2025 Progress note Author Jose Moore [facility] Note Date/Time April 07, 2025 3:15p m [facility] Medical Records Department [address] [place] [address] Progress Note - Hospitalist 04/07/25 1450 MR#: [id number] Acct: [id number] Name: ENOC ARMANDO Rep #:[id number] : 1945 79 From: Jose lui MD PCP: Dr. Ryley Jeter MD Status:ADM IN Location: [place] [address] Subjective Subjective Doing well, no issues overnight. [...] 79.0 H, Lymph % (Auto) 12.6 L, Pecos % (Auto) 8.0, Eos % (Auto) 0.1, [...] a cardiac cath 2 years ago at [facility] and was told he had 2 blockages which were not amenable to revascularization. Records requested from [facility]. Further management as per cardiology. 04/06/2025: Breath [...] as above. * Further records requested from [facility] as above * cardiology on board 04/06/2025: [place] to be due to demand ischemia though [...] DVT: SCDs Charges/Coding Visit Charges Inpatient E&M: 34794 Subs Hosp L2 04/07/25 1515 <Electronically signed by Jose Moore MD> Cosigner Signature (if applicable): CC: ~ Signed [facility] Work Phone: 1(163) 576-218206-07-2025 Progress note [facility] Medical Records Department [address] [place] [address] Progress Note - Hospitalist 04/07/25 1450 MR#: [id number] Acct: [id number] Name: ENOC ARMANDO Rep #:[id number] : 1945 79 From: Jose lui MD PCP: Dr. Ryley Jeter MD Status:ADM IN Location: [place] [address] Subjective Subjective Doing well, no issues overnight. [...] 79.0 H, Lymph % (Auto) 12.6 L, Pecos % (Auto) 8.0, Eos % (Auto) 0.1, [...] a cardiac cath 2 years ago at [facility] and was told he had 2 blockages which were not amenable to revascularization. Records requested from [facility]. Further management as per cardiology. 04/06/2025: Breath [...] as above. * Further records requested from [facility] as above * cardiology on board 04/06/2025: [place] to be due to demand ischemia though [...] DVT: SCDs Charges/Coding Visit Charges Inpatient E&M: 71796 Subs Hosp L2 04/07/25 1515 Cosigner Signature (if applicable): CC: ~ Signed [facility]06-06-2025 Progress note Author Jose Moore [facility] Note Date/Time April 06, 2025 6:25p m [facility] Medical Records Department [address] [place] [address] Progress Note - Hospitalist 04/06/258 MR#: [id number] Acct: [id number] Name: ENOC ARMANDO Rep #:[id number] : 1945 79 From: Jose lui MD PCP: Dr. Ryley Jeter MD Status:ADM IN Location: [place] [address] Subjective Subjective Doing well, no issues overnight [...] (Auto) 83.3 H, Lymph % (Auto) 9.1L, Pecos % (Auto) 7.0, Eos % (Auto) 0.0, [...] Lung findings are grossly unchanged. Reading Location: [facility] Rhythm Strip Rhythm Strip: Sinus Rhythm [...] a cardiac cath 2 years ago at [facility] and was told he had 2 blockages which were not amenable to revascularization. Records requested from [facility]. Further management as per cardiology. 04/06/2025: Breath sounds are improving and he is maintaining nasal cannula after dialysis #Elevated cardiac enzymes: * initial troponin was 58, and only peaked at 76. 2D echo as above. * Further records requested from [facility] as above * cardiology on board 04/06/2025: [place] to be due to demand ischemia though [...] DVT: Heparin Charges/Coding Visit Charges Inpatient E&M: 82606 Subs Hosp L2 04/06/251824 <Electronically signed by Jose Moore MD> Cosigner Signature (if applicable): CC: ~ Signed [facility] Work Phone: 1([phone]) 243-372506-06-2025 Progress note [facility] Medical Records Department [address] [place] [address] Progress Note - Hospitalist 04/06/251817 MR#: [id number] Acct: [id number] Name: ENOC ARMANDO Rep #:[id number] : 1945 79 From: Jose lui MD PCP: Dr. Ryley Jeter MD Status:ADM IN Location: [place] [address] Subjective Subjective Doing well, no issues overnight [...] (Auto) 83.3 H, Lymph % (Auto) 9.1L, P[place]os % (Auto) 7.0, Eos % (Auto) 0.0, [...] Lung findings are grossly unchanged. Reading Location: [facility] Rhythm Strip Rhythm Strip: Sinus Rhythm [...] a cardiac cath 2 years ago at [facility] and was told he had 2 blockages which were not amenable to revascularization. Records requested from [facility]. Further management as per cardiology. 04/06/2025: Breath sounds are improving and he is maintaining nasal cannula after dialysis #Elevated cardiac enzymes: * initial troponin was 58, and only peaked at 76. 2D echo as above. * Further records requested from [facility] as above * cardiology on board 04/06/2025: [place] to be due to demand ischemia though [...] DVT: Heparin Charges/Coding Visit Charges Inpatient E&M: 26644 Subs Hosp L2 04/06/25 1825 Cosigner Signature (if applicable): CC: ~ Signed [facility]06-06-2025 Progress note Author Kalani Gonzalez [facility] Note Date/Time April 06, 2025 4:18p m [facility] Medical Records Department [address] [place] [address] Progress Note - Nephrology 04/06/25 1117 MR#: [id number] Acct: [id number] Name: ENOC ARMANDO Rep #:[id number] : 1945 79 From: Kalani JEFFERS PCP: Dr. Ryley Jeter MD Status:ADM IN Location: [place] [address] Documented by User: AURY Davison 04/06/25 11:24 [...] Sl. Cloudy, Urine pH 5.0, Ur Specific Jordan 1.020, Urine Protein 100 H, Urine Glucose [...] (Auto) 83.3 H, Lymph % (Auto) 9.1L, Pecos % (Auto) 7.0, Eos % (Auto) 0.0, [...] Lung findings are grossly unchanged. Reading Location: [facility] Rhythm Strip Rhythm Strip: Sinus Rhythm [...] stage III (followed by Dr. Albert in [place]), COPD, diabetes mellitus admitted to the hospital [...] stage III (followed by Dr. Albert in [place]), COPD, diabetes mellitus admitted to the hospital [...] and plan reviewed with Dr. Thompson. jr CYCLE TOURING GUIDE. BAKARI is typically short lived. hopefully will recover soon. HD today. will reevaluate tomorrow 04/06/25 1124 <Electronically signed by Kalani JEFFERS> Cosigner Signature (if applicable): 04/06/25 1618 <Electronically signed by Denisha Thompson MD> CC: ~ Signed [facility] Work Phone: 1(488) 635-607606-06-2025 Progress note [facility] Medical Records Department [address] [place] [address] Progress Note - Nephrology 04/06/25 1117 MR#: [id number] Acct: [id number] Name: ENOC ARMANDO Rep #:[id number] : 1945 79 From: Kalani JEFFERS PCP: Dr. Ryley Jeter MD Status:ADM IN Location: [place] [address] Documented by User: AURY Davison 04/06/25 11:24 [...] Sl. Cloudy, Urine pH 5.0, Ur Specific Jordan 1.020, Urine Protein 100 H, Urine Glucose [...] (Auto) 83.3 H, Lymph % (Auto) 9.1L, Pecos % (Auto) 7.0, Eos % (Auto) 0.0, [...] Lung findings are grossly unchanged. Reading Location: [facility] Rhythm Strip Rhythm Strip: Sinus Rhythm [...] stage III (followed by Dr. Albert in [place]), COPD, diabetes mellitus admitted to the hospital [...] stage III (followed by Dr. Albert in [place]), COPD, diabetes mellitus admitted to the hospital [...] and plan reviewed with Dr. Thompson. dw CYCLE TOURING GUIDE. BAKARI is typically short lived. hopefully will recover soon. HD today. will reevaluate tomorrow 04/06/25 1124 Cosigner Signature (if applicable): 04/06/25 1618 CC: ~ Signed [facility]06-06-2025 Progress note Author Smooth Luis [facility] Note Date/Time April 06, 2025 11:24 am [facility] Medical Records Department [address] [place] [address] Progress Note - Surgery 04/06/25 1123 MR#: [id number] Acct: [id number] Name: ENOC ARMANDO Rep #:[id number] : 1945 79 From: Smooth Luis MD PCP: Dr. Ryley Jeter MD Status:ADM IN Location: [place] [address] Subjective Subjective Patient seen on rounds this [...] Sl. Cloudy, Urine pH 5.0, Ur Specific Jordan 1.020, Urine Protein 100 H, Urine Glucose [...] (Auto) 83.3 H, Lymph % (Auto) 9.1L, Pecos % (Auto) 7.0, Eos % (Auto) 0.0, [...] Lung findings are grossly unchanged. Reading Location: [facility] Rhythm Strip Rhythm Strip: Sinus Rhythm [...] Cosigner Signature (if applicable): CC: ~ Signed [facility] Work Phone: 1(818) 448-420806-06-2025 Progress note Author Landry Fagan [facility] Note Date/Time April 06, 2025 9:42a m [facility] Medical Records Department [address] [place] [address] Progress Note - Black Top Machine Operator 04/06/25 0938 MR#: [id number] Acct: [id number] Name: ENOC ARMANDO Rep #:[id number] : 1945 79 From: Landry Fagan PCP: Dr. Ryley Jeter MD Status:ADM IN Location: [place] [address] Assessment & Plan Assessment/Plan (1) Acute hypoxic [...] without intubation This note was generated with [employer] dictation software. It may contain incorrectwords, spelling, [...] Sl. Cloudy, Urine pH 5.0, Ur Specific Jordan 1.020, Urine Protein 100 H, Urine Glucose [...] (Auto) 83.3 H, Lymph % (Auto) 9.1L, Pecos % (Auto) 7.0, Eos % (Auto) 0.0, [...] Lung findings are grossly unchanged. Reading Location: [facility] Rhythm Strip Rhythm Strip: Sinus Rhythm [...] affect normal Charges/Coding Visit Charges Inpatient E&M: 87566 Subs Hosp L2 04/06/25 0942 <Electronically signed by Landry Fagan DO> Cosigner Signature (if applicable): CC: ~ Signed [facility] Work Phone: 1(259) 679-112406-06-2025 Progress note [facility] Medical Records Department [address] [place] [address] Progress Note - Surgery 04/06/25 1123 MR#: [id number] Acct: [id number] Name: ENOC ARMANDO Rep #:[id number] : 1945 79 From: Smooth Luis MD PCP: Dr. Ryley Jeter MD Status:ADM IN Location: [place] [address] Subjective Subjective Patient seen on rounds this [...] Sl. Cloudy, Urine pH 5.0, Ur Specific Jordan 1.020, Urine Protein 100 H, Urine Glucose [...] (Auto) 83.3 H, Lymph % (Auto) 9.1L, Pecos % (Auto) 7.0, Eos % (Auto) 0.0, [...] Lung findings are grossly unchanged. Reading Location: [facility] Rhythm Strip Rhythm Strip: Sinus Rhythm [...] Cosigner Signature (if applicable): CC: ~ Signed [facility]06-06-2025 Progress note [facility] Medical Records Department [address] [place] [address] Progress Note - Black Top Machine Operator 04/06/25 0938 MR#: [id number] Acct: [id number] Name: ENOC ARMANDO Rep #:[id number] : 1945 79 From: aLndry Fagan DO PCP: Dr. Ryley Jeter MD Status:ADM IN Location: [facility] [id number]- 1 Assessment & Plan Assessment/Plan (1) Acute [...] without intubation This note was generated with [employer] dictation software. It may contain incorrectwords, spelling, [...] Sl. Cloudy, Urine pH 5.0, Ur Specific Jordan 1.020, Urine Protein 100 H, Urine Glucose [...] (Auto) 83.3 H, Lymph % (Auto) 9.1L, Pecos % (Auto) 7.0, Eos % (Auto) 0.0, [...] Lung findings are grossly unchanged. Reading Location: [facility] Rhythm Strip Rhythm Strip: Sinus Rhythm [...] affect normal Charges/Coding Visit Charges Inpatient E&M: 61418 Subs Hosp L2 04/06/25 0942 Cosigner Signature (if applicable): CC: ~ Signed [facility]06-05-2025 Consult note Author Smooth Luis [facility] Note Date/Time April 05, 2025 6:10p m [facility] Medical Records Department [address] [place] [address] Consultation - Surgical 04/05/25 1806 MR#: [id number] Acct: [id number] Name: ENOC ARMANDO Rep #:[id number] : 1945 79 From: Smooth Luis MD PCP: Dr. Ryley Jeter MD Status:ADM IN Location: [facility] [id number]- 1 Assessment & Plan Assessment/Plan (1) CKD (chronic kidney disease), stage III: QUALIFIERS: Chronic kidney disease stage 3 subtype: stage 3b (GFR 30-44) Qualified Code(s): N18.32 - Chronic kidney disease, stage 3b PLAN: Plan Patient is an 79-year-old male with worsening renal function. Sales Support Rep is recommending temporary dialysis. Dialysis catheter was [...] who presented to the emergency department at [facility] several days ago with history of worsening [...] obtained to insert the temporary dialysis catheter. [facility] Medical History Chronic anemia Tobacco use COPD [...] AdvReac Other Verified 04/03/25 00:16 (Glucocorticoids) (steroids) Qpkrigw-TSG-RjB Reductase AdvReac Other Verified 04/03/25 00:16 Inhibitor (Gtcsubq-Gjs-Tjd Reductase Inhibitor) Family History Mother COPD (chronic [...] 85.5 H, Lymph % (Auto) 5.7 L, Pecos % (Auto) 7.7, Eos % (Auto) 0.0, [...] Sl. Cloudy, Urine pH 5.0, Ur Specific Jordan 1.020, Urine Protein 100 H, Urine Glucose [...] to prior. Correlate with PSA. Reading Location: [id number] Charges/Coding Visit Charges Inpatient E&M: 63068 Init Hosp L3 04/05/25 1810 <Electronically signed by Smooth Luis MD> Cosigner Signature (if applicable): CC: Dr. Ryley Jeter MD~ Signed [facility] Work Phone: 1(593) 203-417206-05-2025 Radiology Diagnostic study note [facility] Imaging Services [address] [place], [place] [address] CXR for Line Placement MR#: [id number] Acct: [id number] Name: ENOC ARMANDO Rep #: [id number] : 1945 M 79 From: Chely Batista MD PCP: Dr. Ryley Jeter MD Status: ADM IN Study:CXR for Line Placement Date of Exam: 04/05/25 Exam# [id number] Ordering Dr: St dany Luis MD PROCEDURE: CXR FOR LINE PLACEMENT 04/05/2025 REASON FOR EXAM: TEMP HD CATH INSERTION ON RIGHT TECHNIQUE: Single frontal view of the chest COMPARISON: 04/03/2025 RAD/CXR for Line Placement IMPRESSION: Interval insertion of right IJ line with tip at SVC, likely in appropriate position. Lung findings are grossly unchanged. Reading Location: [facility] CC: Dr. Ryley Jeter MD; Dr. Smooth Luis MD ~ Derrick Hand: Signed [facility]06-05-2025 Progress note Author Grace Arnold [facility] Note Date/Time April 05, 2025 5:19p m [facility] Medical Records Department [address] [place] [address] Progress Note 04/05/25 1212 MR#: [id number] Acct: [id number] Name: ENOC ARMANDO Rep #:[id number] : 1945 79 From: Grace Arnold MD PCP: Dr. Ryley Jeter MD Status:ADM IN Location: [facility] [id number]- 1 Subjective Subjective Patient seen and examined. [...] 85.5 H, Lymph % (Auto) 5.7 L, Pecos % (Auto) 7.7, Eos % (Auto) 0.0, [...] to prior. Correlate with PSA. Reading Location: [id number] Rhythm Strip Rhythm Strip: Sinus Rhythm Rate: [...] a cardiac cath 2 years ago at [facility] and was told he had 2 blockages which were not amenable to revascularization. Records requested from [facility]. Further management as per cardiology. * #Elevated cardiac enzymes: * initial troponin was 58, and only peaked at 76. 2D echo as above. * Further records requested from [facility] as above * cardiology on board * [...] heparin sq. Charges/Coding Visit Charges Inpatient E&M: 41176 Subs Hosp L3 04/05/25 1719 <Electronically signed by Grace Arnold MD> Grace Arnold MD Cosigner Signature (if applicable): CC: ~ Signed [facility] Work Phone: 1(314) 938-357906-05-2025 Procedure note [facility] Medical Records Department [address] [place] [address] Operative Report 04/05/25 1810 MR#: [id number] Acct: [id number] Name: ENOC ARMANDO Rep #:[id number] : 1945 79 From: Smooth Luis MD PCP: Dr. Ryley Jeter MD Status:ADM IN Location: [facility] [id number]- 1 Problems Associated Problem List Diagnoses (1) CKD (chronic kidney disease), stage III: Procedures Cardiovascular CF Procedures 33xxx-39xxx: 96256 Insert tunneled cv cath Operative Report (Standard) Operative Information Date of Procedure: 04/05/25 Pre-Operative Diagnosis: Renal failure Post-Operative Diagnosis: Renal failure Surgery/Procedure Performed: Right internal jugular temporary dialysis catheter insertion with ultrasound repair specialist: No Type of Anesthesia: Local Procedure Start Time: 17:00 Procedure Stop Time: 17:20 Select all DRAINS/GRAFTS/IMPLANTS that apply: Prosthetic device Prosthetic device details: 12 Vincentian temporary dialysis catheter Estimated Blood Loss: 15 [...] Nolen MD; Dr. Nina Lee MD~ Signed [facility]06-05-2025 Consult note [facility] Medical Records Department [address] [place] [address] Consultation - Surgical 04/05/25 1806 MR#: [id number] Acct: [id number] Name: ENOC ARMANDO Rep #:[id number] : 1945 79 From: Smooth Luis MD PCP: Dr. Ryley Jeter MD Status:ADM IN Location: [place] [id number]- 1 Assessment & Plan Assessment/Plan (1) CKD (chronic kidney disease), stage III: QUALIFIERS: Chronic kidney disease stage 3 subtype: stage 3b (GFR 30-44) Qualified Code(s): N18.32 - Chronic kidney disease, stage 3b PLAN: Plan Patient is an 79-year-old male with worsening renal function. Sales Support Rep is recommending temporary dialysis. Dialysis catheter was [...] who presented to the emergency department at [facility] several days ago with history of worsening [...] obtained to insert the temporary dialysis catheter. [facility] Medical History Chronic anemia Tobacco use COPD [...] AdvReac Other Verified 04/03/25 00:16 (Glucocorticoids) (steroids) Mtwnbux-ITP-MbN Reductase AdvReac Other Verified 04/03/25 00:16 Inhibitor (Bwufims-Tgn-Xwx Reductase Inhibitor) Family History Mother COPD (chronic [...] 85.5 H, Lymph % (Auto) 5.7 L, Pecos % (Auto) 7.7, Eos % (Auto) 0.0, [...] Sl. Cloudy, Urine pH 5.0, Ur Specific Jordan 1.020, Urine Protein 100 H, Urine Glucose [...] to prior. Correlate with PSA. Reading Location: [facility] Charges/Coding Visit Charges Inpatient E&M: 74227 Init Hosp L3 04/05/25 1810 Cosigner Signature (if applicable): CC: Dr. Ryley Jeter MD~ Signed [facility]06-05-2025 Progress note Author Denisha Thompson [facility] Note Date/Time April 05, 2025 3:20p m [facility] Medical Records Department [address] [place] [address] Progress Note - Nephrology 04/05/25 1518 MR#: [id number] Acct: [id number] Name: ENOC ARMANDO Rep #:[id number] : 1945 79 From: Denisha tirado MD PCP: Dr. Ryley Jeter MD Status:ADM IN Location: [place] [address] Subjective Subjective he is on bipap Objective [...] 85.5 H, Lymph % (Auto) 5.7 L, Pecos % (Auto) 7.7, Eos % (Auto) 0.0, [...] Sl. Cloudy, Urine pH 5.0, Ur Specific Jordan 1.020, Urine Protein 100 H, Urine Glucose [...] to prior. Correlate with PSA. Reading Location: [id number]-T Rhythm Strip Rhythm Strip: Sinus Rhythm Rate: [...] stage III (followed by Dr. Albert in [place]), COPD, diabetes mellitus admitted to the hospital [...] Cosigner Signature (if applicable): CC: ~ Signed [facility] Work Phone: 1(791) 447-867806-05-2025 Progress note [facility] Medical Records Department [address] [place] [address] Progress Note 04/05/25 1212 MR#: [id number] Acct: [id number] Name: ENOC ARMANDO Rep #:[id number] : 1945 79 From: Grace Arnold MD PCP: Dr. Ryley Jeter MD Status:ADM IN Location: [place] [address] Subjective Subjective Patient seen and examined. He [...] 85.5 H, Lymph % (Auto) 5.7 L, Pecos % (Auto) 7.7, Eos % (Auto) 0.0, [...] to prior. Correlate with PSA. Reading Location: [id number]-[id number]-T Rhythm Strip Rhythm Strip: Sinus Rhythm Rate: [...] a cardiac cath 2 years ago at [facility] and was told he had 2 blockages which were not amenable to revascularization. Records requested from [facility]. Further management as per cardiology. * #Elevated cardiac enzymes: * initial troponin was 58, and only peaked at 76. 2D echo as above. * Further records requested from [facility] as above * cardiology on board * [...] heparin sq. Charges/Coding Visit Charges Inpatient E&M: 61529 Subs Hosp L3 04/05/25 1719 Grace Arnold MD Cosigner Signature (if applicable): CC: ~ Signed [facility]06-05-2025 Progress note Author Barbie Martin [facility] Note Date/Time April 05, 2025 3:10p m [facility] Medical Records Department [address] [place] [address] Progress Note - Cardiology 04/05/25 1459 MR#: [id number] Acct: [id number] Name: ENOC ARMANDO Rep #:[id number] : 1945 79 From: Barbie gibson MD PCP: Dr. Ryley Jeter MD Status:ADM IN Location: [place] [address] Subjective Subjective Patient denies any chest pain. [...] 85.5 H, Lymph % (Auto) 5.7 L, Pecos % (Auto) 7.7, Eos % (Auto) 0.0, [...] Sl. Cloudy, Urine pH 5.0, Ur Specific Jordan 1.020, Urine Protein 100 H, Urine Glucose [...] 85.5 H, Lymph % (Auto) 5.7 L, Pecos % (Auto) 7.7, Eos % (Auto) 0.0, [...] Sl. Cloudy, Urine pH 5.0, Ur Specific Jordan 1.020, Urine Protein 100 H, Urine Glucose [...] to prior. Correlate with PSA. Reading Location: [facility] Physical Exam Const alert HEENT normocephalic Eyes [...] catheterization within the last 2 years at [facility]. He also had 2 blockages that were [...] be willing to see him in the [facility] in 7to 10 days after discharge. Charges/Coding Visit Charges Inpatient E&M: 96912 Subs Hosp L2 04/05/25 1510 <Electronically signed by Barbie Martin MD> Cosigner Signature (if applicable): CC: ~ Signed [facility] Work Phone: [phone]) 729-310706-05-2025 Progress note [facility] Medical Records Department [address] [place] [address] Progress Note - Nephrology 04/05/25 1518 MR#: [id number] Acct: [id number] Name: ENOC ARMANDO Rep #:[id number] : 1945 79 From: Denisha tirado MD PCP: Dr. Ryley Jeter MD Status:ADM IN Location: [place] [address] Subjective Subjective he is on bipap Objective [...] 85.5 H, Lymph % (Auto) 5.7 L, Pecos % (Auto) 7.7, Eos % (Auto) 0.0, [...] Sl. Cloudy, Urine pH 5.0, Ur Specific Jordan 1.020, Urine Protein 100 H, Urine Glucose [...] to prior. Correlate with PSA. Reading Location: [id number] Rhythm Strip Rhythm Strip: Sinus Rhythm Rate: [...] stage III (followed by Dr. Albert in [place]), COPD, diabetes mellitus admitted to the hospital [...] Cosigner Signature (if applicable): CC: ~ Signed [facility]06-05-2025 Progress note [facility] Medical Records Department [address] [facility] [place] [address] Progress Note - Cardiology 04/05/25 7067 MR#: [id number] Acct: [id number] Name: ENOC ARMANDO Rep #:[id number] : 1945 79 From: Barbie gibson MD PCP: Dr. Ryley Jeter MD Status:ADM IN Location: [place] [address] Subjective Subjective Patient denies any chest pain. [...] 85.5 H, Lymph % (Auto) 5.7 L, Pecos % (Auto) 7.7, Eos % (Auto) 0.0, [...] Sl. Cloudy, Urine pH 5.0, Ur Specific Jordan 1.020, Urine Protein 100 H, Urine Glucose [...] 85.5 H, Lymph % (Auto) 5.7 L, Pecos % (Auto) 7.7, Eos % (Auto) 0.0, [...] Sl. Cloudy, Urine pH 5.0, Ur Specific Jordan 1.020, Urine Protein 100 H, Urine Glucose [...] to prior. Correlate with PSA. Reading Location: [facility] Physical Exam Const alert HEENT normocephalic Eyes [...] catheterization within the last 2 years at [facility].He also had 2 blockages that were not [...] be willing to see him in the [facility] in 7to 10 days after discharge. Charges/Coding Visit Charges Inpatient E&M: 81265 Subs Hosp L2 04/05/25 1510 Cosigner Signature (if applicable): CC: ~ Signed [facility]06-05-2025 Consult note Author Kalani Gonzalez [facility] Note Date/Time April 05, 2025 10:03 am [facility] Medical Records Department [address] [place] [address] Consultation - Nephrology 04/04/25 1518 MR#: [id number] Acct: [id number] Name: ENOC ARMANDO Rep #:[id number] : 1945 79 From: Kalani arreola NP-C PCP: Dr. Ryley Jeter MD Status:ADM IN Location: [place] [address] Assessment & Plan Assessment/Plan (1) MADONNA (acute kidney injury): (2) CKD (chronic kidney disease), stage III: QUALIFIERS: Chronic kidney disease stage 3 subtype: stage 3b (GFR 30-44) Qualified Code(s): N18.32 - Chronic kidney disease, stage 3b (3) Acute hypoxic respiratory failure: PLAN: Plan This is an 79-year-old male with past medical history significant for hypertension, CKD stage III (followed by Dr. Albert in [place]), COPD, diabetes mellitus admitted to the hospital [...] has been following with Dr. Ayanna Albert, mechanical product engineer in [place] for history of CKD. Baseline creatinine has been around 1.8 mg/dL range. Patient denies any new medications before hospitalization. Denies any recent nausea, vomiting or diarrhea. Denies any urinary habitus changes. No NSAIDs. [facility] Medical History (Updated 04/04/25 @ 15:23 by [...] AdvReac Other Verified 04/03/25 00:16 (Glucocorticoids) (steroids) Seoftbw-HUW-DgE Reductase AdvReac Other Verified 04/03/25 00:16 Inhibitor (Hxkhppr-Nsa-Kod Reductase Inhibitor) Family History Mother COPD (chronic [...] (Auto) 90.4 H, Lymph % (Auto) 4.9L, Pecos % (Auto) 4.0, Eos % (Auto) 0.0, [...] Rhythm Strip: Sinus Rhythm Rate: 86 04/04/25 3422 <Electronically signed by Kalani Trzcinski WET SILK HANGER-C> Cosigner Signature (if applicable): 04/05/25 1003 <Electronically signed by Denisha Thompson MD> CC: Dr. Ryley Jeter MD~ Signed [facility] Work Phone: 1(146) 438-700706-05-2025 Progress note Author Landry Fagan [facility] Note Date/Time April 05, 2025 9:30a m [facility] Medical Records Department [address] [place] [address] Progress Note - Black Top Machine Operator 04/05/25 0819 MR#: [id number] Acct: [id number] Name: ENOC ARMANDO Rep #:[id number] : 1945 79 From: Landry Fagan DO PCP: Dr. Ryley Jeter MD Status:ADM IN Location: [place] [address] Assessment & Plan Assessment/Plan (1) Acute hypoxic [...] 85.5 H, Lymph % (Auto) 5.7 L, Pecos % (Auto) 7.7, Eos % (Auto) 0.0, [...] to prior. Correlate with PSA. Reading Location: [facility] Rhythm Strip Rhythm Strip: Sinus Rhythm Rate: [...] affect normal Charges/Coding Visit Charges Inpatient E&M: 03456 Subs Hosp L2 04/05/25 0930 <Electronically signed by Landry Fagan DO> Cosigner Signature (if applicable): CC: ~ Signed [facility] Work Phone: [phone]) 604-543306-05-2025 Consult note [facility] Medical Records Department [address] [place] [address] Consultation - Nephrology 04/04/25 1518 MR#: [id number] Acct: [id number] Name: ENOC AMRANDO Rep #:[id number] : 1945 79 From: Kalani arreola WET SILK HANGER-C PCP: Dr. Ryley Jeter MD Status:ADM IN Location: [place] [id number]- Assessment & Plan Assessment/Plan (1) MADONNA (acute kidney injury): (2) CKD (chronic kidney disease), stage III: QUALIFIERS: Chronic kidney disease stage 3 subtype: stage 3b (GFR 30-44) Qualified Code(s): N18.32 - Chronic kidney disease, stage 3b (3) Acute hypoxic respiratory failure: PLAN: Plan This is an 79-year-old male with past medical history significant for hypertension, CKD stage III (followed by Dr. Albert in [place]), COPD, diabetes mellitus admitted to the hospital [...] has been following with Dr. Ayanna Albert, mechanical product engineer in [place] for history of CKD. Baseline creatinine has been around 1.8 mg/dL range. Patient denies any new medications before hospitalization. Denies any recent nausea, vomiting or diarrhea. Denies any urinary habitus changes. No NSAIDs. [facility] Medical History (Updated 04/04/25 @ 15:23 by [...] AdvReac Other Verified 04/03/25 00:16 (Glucocorticoids) (steroids) Qtvjpcr-OCR-YdB Reductase AdvReac Other Verified 04/03/25 00:16 Inhibitor (Lsimmsv-Lqi-Fcz Reductase Inhibitor) Family History Mother COPD (chronic [...] (Auto) 90.4 H, Lymph % (Auto) 4.9L, Pecos % (Auto) 4.0, Eos % (Auto) 0.0, [...] 1003 CC: Dr. Ryley Jeter MD~ Signed [facility]06-05-2025 Progress note [facility] Medical Records Department [address] [place] [address] Progress Note - Black Top Machine Operator 04/05/25 0819 MR#: [id number] Acct: [id number] Name: ENOC ARMANDO Rep #:[id number] : 1945 79 From: Landry Fagan DO PCP: Dr. Ryley Jeter MD Status:ADM IN Location: [place] [address] Assessment & Plan Assessment/Plan (1) Acute hypoxic [...] without intubation This note was generated with [employer] dictation software. It may contain incorrectwords, spelling, [...] 85.5 H, Lymph % (Auto) 5.7 L, Pecos % (Auto) 7.7, Eos % (Auto) 0.0, [...] to prior. Correlate with PSA. Reading Location: [facility] Rhythm Strip Rhythm Strip: Sinus Rhythm Rate: [...] affect normal Charges/Coding Visit Charges Inpatient E&M: 68918 Subs Hosp L2 04/05/25 0930 Cosigner Signature (if applicable): CC: ~ Signed [facility]06-05-2025 Radiology Diagnostic study note [facility] Imaging Services [address] [place] [address] Kidney and Bladder MR#: [id number] Acct: [id number] Name: ENOC ARMANDO Rep #: [id number] : 1945 M 79 From: Demetria Mahoney MD PCP: Dr. Ryley Jeter MD Status: ADM IN Study:Kidney and Bladder Date of Exam: 0 04/04/25 Exam# [id number] Ordering Dr: Kesha Arnold MD PROCEDURE: KIDNEY [...] to prior. Correlate with PSA. Reading Location: [facility] CC: Dr. Ryley Jeter MD; Dr. Grace Arnold MD ~ Derrick Hand: Signed [facility]06-04-2025 Progress note Author [facility] Note Date/Time April 04, 2025 5:42p m [facility] Medical Records Department [address] [place] [address] Progress Note 04/04/25 1121 MR#: [id number] Acct: [id number] Name: ENOC ARMANDO Rep #:[id number] : 1945 79 From: Grace Arnodl MD PCP: Dr. Ryley Jeter MD Status:ADM [...] (Auto) 90.4 H, Lymph % (Auto) 4.9L, Pecos % (Auto) 4.0, Eos % (Auto) 0.0, [...] a cardiac cath 2 years ago at [facility] and was told he had 2 blockages which were not amenable to revascularization. Records requested from [facility]. Further management as per cardiology. * #Elevated cardiac enzymes: * initial troponin was 58, and only peaked at 76. 2D echo as above. * Further records requested from [facility] as above * cardiology on board * [...] heparin sq. Charges/Coding Visit Charges Inpatient E&M: 98598 [facility] Hosp L3 04/04/25 8991 <Electronically signed by Grace Arnold MD> Grace Arnold MD Cosigner Signature (if applicable): CC: ~ Signed [facility] Work Phone: 1(396) 919-420006-04-2025 Progress note [facility] Medical Records Department [address] [place] [address] Progress Note 04/04/25 1121 MR#: [id number] Acct: [id number] Name: ENOC ARMANDO Rep #:[id number] : 1945 79 From: Grace Arnold MD [...] (Auto) 90.4 H, Lymph % (Auto) 4.9L, Pecos % (Auto) 4.0, Eos % (Auto) 0.0, [...] a cardiac cath 2 years ago at [facility] and was toldhe had 2 blockages which were not amenable to revascularization. Records requested from [facility]. Further management as per cardiology. * #Elevated cardiac enzymes: * initial troponin was 58, and only peaked at 76. 2D echo as above. * Further records requested from [facility] as above * cardiology on board * [...] heparin sq. Charges/Coding Visit Charges Inpatient E&M: 05939 Subs Hosp L3 04/04/25 1742 Grace Arnold MD Cosigner Signature (if applicable): CC: ~ Signed [facility]06-04-2025 Progress note Author Donte Callum [facility] Note Date/Time April 04, 2025 2:56p [facility] Medical Records Department [address] [place] [address] Progress Note - Black Top Machine Operator 04/04/25 1257 MR#: [id number] Acct: [id number] Name: ENOC ARMANDO Rep #:[id number] : 1945 79 From: Donte Silver PCP: [...] mls @ 15 mls/hr 04/03/25 05:18 IV .C98E70H PRN Saline Flush Sodium Chloride 250 mls @ 15 mls/hr 04/03/25 05:18 IV .Y05G43H PRN Additional IVPB Infusion Dextrose 250 mls @ 999 mls/hr 04/03/25 13:17 Dextrose 10%-Water IV .Q16M PRN Hypoglycemic Protocol Protocol Dextrose/Sodium Chloride 1,000 mls @ 60 mls/hr 04/03/25 22:35 04/03/25 23:16 IV 60 mls/hr .N16S08Z DIDI Administration Insulin Glargine 15 unit 04/04/25 [...] Tablet PO 25 mg DAILY [facility] Administration Protocol Nitroglycerin 0.4 mg 04/03/25 [...] Tablet PO 04/10/25 08:01 BREAKFAST [facility] Prochlorperazine Edisylate 5 mg 04/03/25 05:17 [...] Capsule PO 0.4 mg TuTa@1730 [facility] Administration Lab / Micro Data 04/04/25 [...] (Auto) 90.4 H, Lymph % (Auto) 4.9L, Pecos % (Auto) 4.0, Eos % (Auto) 0.0, [...] this encounter was done via Telemedicine 04/04/25 1866 <Electronically signed by Donte Nolen MD> Cosigner Signature (if applicable): CC: ~ Signed [facility] Work Phone: 1(319) 945-263206-04-2025 Progress note [facility] Medical Records Department [address] [place] [address] Progress Note - Black Top Machine Operator 04/04/25 1257 MR#: [id number] Acct: [id number] Name: ENOC ARMANDO Rep #:[id number] : 1945 79 From: Donte Silver PCP: [...] mls @ 15 mls/hr 04/03/25 05:18 IV .F30Z34O PRN Saline Flush Sodium Chloride 250 mls @ 15 mls/hr 04/03/25 05:18 IV .Q00L30N PRN Additional IVPB Infusion Dextrose 250 mls @ 999 mls/hr 04/03/25 13:17 Dextrose 10%-Water IV .Q16M PRN Hypoglycemic Protocol Protocol Dextrose/Sodium Chloride 1,000 mls @ 60 mls/hr 04/03/25 22:35 04/03/25 23:16 IV 60 mls/hr .X62F36F DIDI Administration Insulin Glargine 15 unit 04/04/25 [...] Hcl 0.4 Mg Capsule PO 0.4 mg Ayla@5435 DIDI Administration Lab / Micro Data 04/04/25 [...] (Auto) 90.4 H, Lymph % (Auto) 4.9L, Pecos % (Auto) 4.0, Eos % (Auto) 0.0, [...] this encounter was done via Telemedicine 04/04/25 7338 Cosigner Signature (if applicable): CC: ~ Signed [facility]06-04-2025 Progress note Author Breezy Campbell [facility] Note Date/Time April 04, 2025 10:35 am [facility] Medical Records Department [address] [place] [address] Progress Note - Cardiology 04/04/25 1028 MR#: [id number] Acct: [id number] Name: ENOC ARMANDO Rep #:[id number] : 1945 79 From: Breezy Campbell MD PCP: Dr. Ryley Jeter MD Status:ADM IN Location: ICU ICU04-1 Subjective Subjective Has not been able to obtain records from [place] for his catheterization within the past 2 [...] (Auto) 90.4 H, Lymph % (Auto) 4.9L, Pecos % (Auto) 4.0, Eos % (Auto) 0.0, [...] 90.4 H, Lymph % (Auto) 4.9 L, Pecos % (Auto) 4.0, Eos % (Auto) 0.0, [...] catheterization within the last 2 years at [place]. He also had 2 blockages that were [...] be willing to see him in the [facility] in 7to 10 days after discharge. Charges/Coding Visit Charges Inpatient E&M: 86110 Subs Hosp L3 04/04/25 1035 <Electronically signed by Breezy Campbell MD> Cosigner Signature (if applicable): CC: ~ Signed [facility] Work Phone: 1(424) 745-550706-04-2025 Progress note [facility] Medical Records Department [address] [place] [address] Progress Note - Cardiology 04/04/25 1028 MR#: [id number] Acct: [id number] Name: ENOC ARMANDO Rep #:[id number] : 1945 79 From: Breezy Campbell MD PCP: Dr. Ryley Jeter MD Status:ADM IN Location: ICU ICU04-1 Subjective Subjective Has not been able to obtain records from [place] for his catheterization within the past 2 [...] (Auto) 90.4 H, Lymph % (Auto) 4.9L, Pecos % (Auto) 4.0, Eos % (Auto) 0.0, [...] 90.4 H, Lymph % (Auto) 4.9 L, Pecos %(Auto) 4.0, Eos % (Auto) 0.0, Baso [...] catheterization within the last 2 years at [place]. He also had 2 blockages that were [...] be willing to see him in the [facility] in 7to 10 days after discharge. Charges/Coding Visit Charges Inpatient E&M: 11660 Subs Hosp 04/04/25 1035 Cosigner Signature (if applicable): CC: ~ Signed [facility]06-03-2025 Progress note Author Grace Arnold [facility] Note Date/Time April 03, 2025 5:08p m [facility] Medical Records Department [address] [place] [address] Progress Note 04/03/25 1352 MR#: [id number] Acct: [id number] Name: ENOC ARMANDO Rep #:[id number] : 1945 79 From: Grace Arnold MD [...] 76.4 H, Lymph % (Auto) 13.5 L, Pecos % (Auto) 7.0, Eos % (Auto) 1.9, [...] (Auto) 94.8 H, Lymph % (Auto) 3.3L, Pecos % (Auto) 1.1, Eos % (Auto) 0.0, [...] possibly multifocal congestion and/or pneumonia. Reading Location: [place] [address] Chest CTA 04/03/25 02:34 IMPRESSION: Mild bilateral pleural effusions. Passive atelectatic airspace disease/airspace consolidations of the lower lobes. Bilateral chronic perihilar interstitial pulmonary thickening with associated mild multifocal ground-glass densities, possibly superimposed pneumonia. Mild diffuse spondylosis. No CT evidence of pulmonary embolus or aortic dissection. Reading Location: [place] [address] Echocardiogram 04/03/25 05:55 Interpretation Summary Mid to [...] 32 mins Charges/Coding Visit Charges Inpatient E&M: 41948 PROLNG IP/OBS E/M EA 15 MIN 04/03/25 [...] Signature (if applicable): Date cc: ~* Signed [facility] Work Phone: 1(335) 858-468106-03-2025 Consult note Author Breezy Campbell [facility] Note Date/Time April 03, 2025 4:52p m [facility] Medical Records Department [address] [place] [address] Consultation - Cardiology 04/03/25 1630 MR#: [id number] Acct: [id number] Name: ENOC ARMANDO Rep #:[id number] : 1945 79 From: Breezy Campbell MD [...] left heart catheterization a year ago in [place] we will try to obtain those records [...] I will try to obtain records from [place] to see if this is new but [...] Will try to obtain cardiovascular records from [place] from last year. 2. Continue current medical therapy. 3. Will follow along with you as the patient recovers from his pulmonary insufficiency we may need to alter his cardiovascular medical therapy. 4. The patient does not routinely see a stream control officer by his report. 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 The patient specifically denies any chest pain. He denies any lower extremity edema. The patient's complaint was really dyspnea on exertion. He is now beingtreated with IV antibiotics and ventilatory support. The patient is DNR CCA. [facility] Medical History (Updated 04/03/25 @ 16:49 by [...] AdvReac Other Verified 04/03/25 00:16 (Glucocorticoids) (steroids) Aygbxsk-VJE-GcP Reductase AdvReac Other Verified 04/03/25 00:16 Inhibitor (Bmjzfbr-Fbu-One Reductase Inhibitor) Family History Mother COPD (chronic [...] 20% Risk Charges/Coding Visit Charges Inpatient E&M: 23529 Init Hosp L3 Objective Data Vital Signs: [...] 76.4 H, Lymph % (Auto) 13.5 L, Pecos % (Auto) 7.0, Eos % (Auto) 1.9, [...] (Auto) 94.8 H, Lymph % (Auto) 3.3L, Pecos % (Auto) 1.1, Eos % (Auto) 0.0, [...] 76.4 H, Lymph % (Auto) 13.5 L, Pecos % (Auto) 7.0, Eos % (Auto) 1.9, Baso % (Auto) 0.6, Absolute Neuts (auto) 12.0 H, Nucleated RBC % 0, PT 13.4, INR 1.0,APTT 37.3 H, D-Dimer Quant (PE/DVT) 1.86 H*, Sodium 139, Potassium 4.4, Jcnjklle305, Carbon Dioxide 20.8 L, Anion Gap 14, [...] 94.8 H, Lymph % (Auto) 3.3 L, Pecos % (Auto) 1.1, Eos % (Auto) 0.0, [...] possibly multifocal congestion and/or pneumonia. Reading Location: [place] [address] Chest CTA 04/03/25 02:34 IMPRESSION: Mild bilateral pleural effusions. Passive atelectatic airspace disease/airspace consolidations of the lower lobes. Bilateral chronic perihilar interstitial pulmonary thickening with associated mild multifocal ground-glass densities, possibly superimposed pneumonia. Mild diffuse spondylosis. No CT evidence of pulmonary embolus or aortic dissection. Reading Location: [place] [address] Echocardiogram 04/03/25 05:55 Interpretation Summary Mid to [...] applicable): CC: Dr. Ryley Jeter MD~ Signed [facility] Work Phone: 1(173) 836-875206-03-2025 Progress note [facility] Medical Records Department [address] [place] [address] Progress Note 04/03/25 1352 MR#: [id number] Acct: [id number] Name: ENOC ARMANDO Rep #:[id number] : 1945 79 From: Grace Arnold MD [...] 76.4 H, Lymph % (Auto) 13.5 L, Pecos % (Auto) 7.0, Eos % (Auto) 1.9, Baso % (Auto) 0.6, Absolute Neuts (auto) 12.0 H, Absolute Lymphs (auto) 2.12, Nucleated RBC % 0, PT 13.4, INR 1.0,APTT 37.3 H, D-Dimer Quant (PE/DVT) 1.86 H*, Sodium 139, Potassium 4.4,Chloride 104, Carbon Vljrxgh83.8 L, Anion Gap 14, BUN 42 H, [...] (Auto) 94.8 H, Lymph % (Auto) 3.3L, Pecos % (Auto) 1.1, Eos % (Auto) 0.0, [...] possibly multifocal congestion and/or pneumonia. [facility] Chest CTA 04/03/25 02:34 IMPRESSION: Mild bilateral pleural effusions. Passive atelectatic airspace disease/airspace consolidations of the lower lobes. Bilateral chronic perihilar interstitial pulmonary thickening with associated mild multifocal ground-glass densities, possibly superimposed pneumonia. Mild diffuse spondylosis. No CT evidence of pulmonary embolus or aortic dissection. Reading Location: [facility] Echocardiogram 04/03/25 05:55 Interpretation Summary Mid to [...] 32 mins Charges/Coding Visit Charges Inpatient E&M: 30177 PROLNG IP/OBS E/M EA 15 MIN 04/03/25 [...] Signature (if applicable): Date cc: ~* Signed [facility]06-03-2025 Consult note [facility] Medical Records Department [address] [facility] [place] [address] Consultation - Cardiology 04/03/25 1630 MR#: [id number] Acct: [id number] Name: ENOC ARMANDO Rep #:[id number] : 1945 79 From: Breezy Campbell MD [...] left heart catheterization a year ago in [place] we will try to obtain those records [...] I will try to obtain records from [place] to see if this is new but [...] Will try to obtain cardiovascular records from [place] from last year. 2. Continue current medical therapy. 3. Will follow along with you as the patient recovers from his pulmonary insufficiency we may need to alter his cardiovascular medical therapy. 4. The patient does not routinely see a stream control officer by his report. 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 The patient specifically denies any chest pain. He denies any lower extremity edema. The patient's complaint was really dyspnea on exertion. He is now beingtreated with IV antibiotics and ventilatorysupport. The patient is DNR CCA. [facility] Medical History (Updated 04/03/25 @ 16:[address] Berezy Campbell MD) Chronic anemia Tobacco use COPD [...] AdvReac Other Verified 04/03/25 00:16 (Glucocorticoids) (steroids) Otvofwm-JCI-EjH Reductase AdvReac Other Verified 04/03/25 00:16 Inhibitor (Erzrgbl-Lio-Akj Reductase Inhibitor) Family History Mother COPD (chronic [...] 20% Risk Charges/Coding Visit Charges Inpatient E&M: 32679 Init Hosp L3 Objective Data Vital Signs: [...] 76.4 H, Lymph % (Auto) 13.5 L, Pecos % (Auto) 7.0, Eos % (Auto) 1.9, Baso % (Auto) 0.6, Absolute Neuts (auto) 12.0 H, Absolute Lymphs (auto) 2.12, Nucleated RBC % 0, PT 13.4, INR 1.0,APTT 37.3 H, D-Dimer Quant (PE/DVT) 1.86 H*, Sodium 139, Potassium 4.4,Chloride 104, Carbon Mxxibhg31.8 L, Anion Gap 14, BUN 42 H, [...] (Auto) 94.8 H, Lymph % (Auto) 3.3L, Pecos % (Auto) 1.1, Eos % (Auto) 0.0, [...] 76.4 H, Lymph % (Auto) 13.5 L, Pecos % (Auto) 7.0, Eos % (Auto) 1.9, Baso % (Auto) 0.6, Absolute Neuts (auto) 12.0 H, Nucleated RBC %0, PT 13.4, INR 1.0,APTT 37.3 H, D-Dimer Quant (PE/DVT) 1.86 H*, Sodium 139, Potassium 4.4, Oomjsief679, Carbon Dioxide 20.8 L, Anion Gap 14, [...] 94.8 H, Lymph % (Auto) 3.3 L, Pecos %(Auto) 1.1, Eos % (Auto) 0.0, Baso [...] possibly multifocal congestion and/or pneumonia. Reading Location: [place] [address] Chest CTA 04/03/25 02:34 IMPRESSION: Mild bilateral pleural effusions. Passive atelectatic airspace disease/airspace consolidations of the lower lobes. Bilateral chronic perihilar interstitial pulmonary thickening with associated mild multifocal ground-glass densities, possibly superimposed pneumonia. Mild diffuse spondylosis. No CT evidence of pulmonary embolus or aortic dissection. Reading Location[facility] Echocardiogram 04/03/25 05:55 Interpretation Summary Mid to [...] applicable): CC: Dr. Ryley Jeter MD~ Signed [facility]06-03-2025 Consult note Author Landry Fagan [facility] Note Date/Time April 03, 2025 9:04a m [facility] Medical Records Department [address] [place] [address] Consultation - Black Top Machine Operator 04/03/25 0850 MR#: [id number] Acct: [id number] Name: ENOC ARMANDO Rep #:[id number] : 1945 79 From: Landry Fagan DO [...] without intubation This note was generated with [employer] dictation software. It may contain incorrectwords, spelling, [...] he has never been evaluated by a podiatric assistant or completed pulmonary function studies. Therefore, it [...] to be a DNR CCA without intubation. [facility] Medical History Chronic anemia Tobacco use COPD [...] AdvReac Other Verified 04/03/25 00:16 (Glucocorticoids) (steroids) Lulaeff-QVH-DpX Reductase AdvReac Other Verified 04/03/25 00:16 Inhibitor (Iuwnmvn-Hph-Rcc Reductase Inhibitor) Family History Mother COPD (chronic [...] 76.4 H, Lymph % (Auto) 13.5 L, Pecos % (Auto) 7.0, Eos % (Auto) 1.9, [...] (Auto) 94.8 H, Lymph % (Auto) 3.3L, Pecos % (Auto) 1.1, Eos % (Auto) 0.0, [...] possibly multifocal congestion and/or pneumonia. Reading Location: [place] [address] Chest CTA 04/03/25 02:34 IMPRESSION: Mild bilateral pleural effusions. Passive atelectatic airspace disease/airspace consolidations of the lower lobes. Bilateral chronic perihilar interstitial pulmonary thickening with associated mild multifocal ground-glass densities, possibly superimposed pneumonia. Mild diffuse spondylosis. No CT evidence of pulmonary embolus or aortic dissection. Reading Location: [place] [address] Charges/Coding Visit Charges Inpatient E&M: 82350 Init Hosp L3 04/03/25 0904 <Electronically signed by Landry Fagan DO> Cosigner Signature (if applicable): CC: Dr. Ryley Jeter MD~ Signed [facility] Work Phone: 1([phone]) 343-189906-03-2025 Consult note [facility] Medical Records Department [address] [place] [address] Consultation - Black Top Machine Operator 04/03/25 0850 MR#: [id number] Acct: [id number] Name: ENOC ARMANDO Rep #:[id number] : 1945 79 From: Landry Fagan DO [...] without intubation This note was generated with [employer] software. It may contain incorrectwords, spelling, and [...] he has never been evaluated by a podiatric assistant or completed pulmonary function studies. Therefore, it is unknown if the patient has underlying obstructive lung disease. He does not utilize any inhalers at his [facility]. On presentation to the emergency department, the [...] morning to be a DNR CCA withoutintubation. [facility] Medical History Chronic anemia Tobacco use COPD [...] AdvReac Other Verified 04/03/25 00:16 (Glucocorticoids) (steroids) Rjsoquz-WCV-VdX Reductase AdvReac Other Verified 04/03/25 00:16 Inhibitor (Ivltemj-Tgj-Trz Reductase Inhibitor) Family History Mother COPD (chronic [...] 76.4 H, Lymph % (Auto) 13.5 L, Pecos % (Auto) 7.0, Eos % (Auto) 1.9, Baso % (Auto) 0.6, Absolute Neuts (auto) 12.0 H, Absolute Lymphs (auto) 2.12, Nucleated RBC % 0, PT 13.4, INR 1.0,APTT 37.3 H, D-Dimer Quant (PE/DVT) 1.86 H*, Sodium 139, Potassium 4.4,Chloride 104, Carbon Zqkkqtk87.8 L, Anion Gap 14, BUN 42 H, [...] (Auto) 94.8 H, Lymph % (Auto) 3.3L, Pecos % (Auto) 1.1, Eos % (Auto) 0.0, [...] possibly multifocal congestion and/or pneumonia. Reading Location: [place] [address] Chest CTA 04/03/25 02:34 IMPRESSION: Mild bilateral pleural effusions. Passive atelectatic airspace disease/airspace consolidations of the lower lobes. Bilateral chronic perihilar interstitial pulmonary thickening with associated mild multifocal ground-glass densities, possibly superimposed pneumonia. Mild diffuse spondylosis. No CT evidence of pulmonary embolus or aortic dissection. Reading Location: [place] [address] Charges/Coding Visit Charges Inpatient E&M: 57087 Init Hosp L3 04/03/25 0904 Cosigner Signature (if applicable): CC: Dr. Ryley Jeter MD~ Signed [facility]06-03-2025 History and physical note Author Dyana Hwang [facility] Note Date/Time April 03, 2025 4:42a m [facility] Medical Records Department [address] [place] [address] H&P Exam - Hospitalist 04/03/25 0402 MR#: [id number] Acct: [id number] Name: ENOC ARMANDO Rep #:[id number] : 1945 79 From: Dyana Hwang MD [...] pathology, Tobacco use who presents to the [facility] ED on 04/03/2025 with history of worsening [...] x 1 and sublingual nitroglycerin x 1. [facility] Medical History (Updated 04/03/25 @ 04:40 by [...] AdvReac Other Verified 04/03/25 00:16 (Glucocorticoids) (steroids) Kvlnuir-LXC-DkX Reductase AdvReac Other Verified 04/03/25 00:16 Inhibitor (Gfhjesl-Egm-Chy Reductase Inhibitor) Family History (Updated 04/03/25 @ [...] Std Deviation 45.3 H, RDW Coeff of Humaria 13.2, Plt Count 300, MPV 10.8, Immature Gran % (Auto) 0.600, Neut % (Auto) 76.4 H, Lymph % (Auto) 13.5 L, Pecos % (Auto) 7.0, Eos % (Auto) 1.9, [...] possibly multifocal congestion and/or pneumonia. [facility] Chest CTA 04/03/25 02:34 IMPRESSION: Mild bilateral pleural effusions. Passive atelectatic airspace disease/airspace consolidations of the lower lobes. Bilateral chronic perihilar interstitial pulmonary thickening with associated mild multifocal ground-glass densities, possibly superimposed pneumonia. Mild diffuse spondylosis. No CT evidence of pulmonary embolus or aortic dissection. Reading Location: [place] [address] Assessment & Plan Assessment/Plan (1) Acute hypoxic respiratory failure: PLAN: Plan The patient is an 79 y/o M w/ PMHx: CKD stage III unclear subtype per GFR trending, Chronic macrocytic anemia, HTN, HLD, Diabetes mellitus type II, BPH with obstructive pathology, Tobacco use who presents to the [facility] ED on 04/03/2025 with history of worsening [...] any pulmonary embolus or aortic dissection, initial [id number] with repeat delta troponin 76. Will maintain [...] 16 minutes. Charges/Coding Visit Charges Inpatient E&M: 22066 Init Hosp L3 Procedures Hospitalists Procedures: 02657 Advncd Care Plan 30 Min 04/03/25 3988 <Electronically signed by Dyana Hwang MD> Cosigner Signature (if applicable): CC: Dr. Dyana Hwang MD; Dr. Ryley Jeter MD~ Signed [facility] Work Phone: [phone]) 842-691006-03-2025 Evaluation note* Diagnosis Onset Date Resolution Status Admit Date Acute hypoxic respiratory failure ac [place] April 03, 2025 4:16am MADONNA (acute kidney injury) acute April 03, 2025 4:16am Anemia acute April 03, 2025 4:16am Bradycardia acute April 03 4:16am LV dysfunction acute April 03, 2025 4:16am Non-STEMI (non-ST elevated myocardial infarction) acute April 03, 2025 4:16am CKD (chronic kidney disease) , stage III chronic April 03, 2025 4 :16am HTN (hypertension) chronic April 032024 4:16am [facility] Work Phone: 1([phone]) [phone] Discharge summary Author John Brandon [facility] Note Date/Time April 03, 2025 4:11a m [facility] Medical Records Department [address] [place] [address] Emergency Department Summary 04/03/25 MR#: [id number] Acct: [id number] Name: ENOC ARMANDO Rep #:[id number] : 1945 79 From: John Ramirez PCP: Dr. Ryely Jeter MD Status:REG ER Location: ED HPI History of Present Illness Chief Complaint: Shortness of Breath PFSH [facility] Medical History Pneumonia COVID Wears glasses Wears [...] AdvReac Other Verified 04/03/25 00:16 (Glucocorticoids) (steroids) Ptytgvm-Duh-Ufj Reductase AdvReac Other Verified 04/03/25 00:16 Inhibitor [...] Consults: internal medicine only sees Dr. Hwang) [facility] Narrative: The patient was initially tachycardic, tachypneic, [...] to ICU This note was generated with [employer] dictation software. It may contain incorrectwords, spelling, [...] 76.4 H Lymph % (Auto) 13.5 L Pecos % (Auto) 7.0 Eos % (Auto) 1.9 [...] possibly multifocal congestion and/or pneumonia. Reading Location: [place] [address] Discharge Plan Triage Chief Complaint: Shortness of [...] MD [Primary Care Provider] - Print Language: Belgian What to do if you have Problems For any increased pain, shortness of breath, bleeding, nausea or vomiting, chestpain, or any unexpected problems, contact your Primary Care Provider. Call [facility] ([phone]) or report to the closest Emergency Room. Call 911 if necessary. 04/03/25410 <Electronically signed by John Brandon DO> Cosigner Signature (if applicable): CC: Dr. Ryley Jeter MD ~ Signed [facility] Work Phone: 1([phone]) 423-678606-03-2025 History and physical note [facility] Medical Records Department [address] [place] [address] H&P Exam - Hospitalist 04/03/25 0402 MR#: [id number] Acct: [id number] Name: ENOC ARMANDO Rep #:[id number] : 1945 79 From: Dyana Hwang MD [...] pathology, Tobacco use who presents to the [facility] ED on 04/03/2025 with history of worsening [...] x 1 and sublingual nitroglycerin x 1. [facility] Medical History (Updated 04/03/25 @ 04:40 by [...] AdvReac Other Verified 04/03/25 00:16 (Glucocorticoids) (steroids) Wwzqsxd-WHR-CsP Reductase AdvReac Other Verified 04/03/25 00:16 Inhibitor (Vplfmgd-Bcl-Dpk Reductase Inhibitor) Family History (Updated 04/03/25 @ [...] 76.4 H, Lymph % (Auto) 13.5 L, Pecos % (Auto) 7.0, Eos % (Auto) 1.9, [...] possibly multifocal congestion and/or pneumonia. Reading Location: [place] [address] Chest CTA 04/03/25 02:34 IMPRESSION: Mild bilateral pleural effusions. Passive atelectatic airspace disease/airspace consolidations of the lower lobes. Bilateral chronic perihilar interstitial pulmonary thickening with associated mild multifocal ground-glass densities, possibly superimposed pneumonia. Mild diffuse spondylosis. No CT evidence of pulmonary embolus or aortic dissection. Reading Location: [place] [address] Assessment & Plan Assessment/Plan (1) Acute hypoxic respiratory failure: PLAN: Plan The patient is an 79 y/o M w/ PMHx: CKD stage III unclear subtype per GFR trending, Chronic macrocytic anemia, HTN, HLD, Diabetes mellitus type II, BPH with obstructive pathology, Tobacco use who presents to the [facility] ED on 04/03/2025 with history of worsening [...] any pulmonary embolus or aortic dissection, initial kxzvsfji84anng repeat delta troponin 76. Will maintain on [...] 16 minutes. Charges/Coding Visit Charges Inpatient E&M: 76426 Init Hosp L3 Procedures Hospitalists Procedures: 10197 Advncd Care Plan 30 Min 04/03/25 0442 Cosigner Signature (if applicable): CC: Dr. Dyana Hwang MD; Dr. Ryley Jeter MD~ Signed [facility]06-03-2025 Discharge summary [facility] Medical Records Department [address] [place] [address] Emergency Department Summary 04/03/25 MR#: [id number] Acct: [id number] Name: ENOC ARMANDO Rep #:[id number] : 1945 79 From: John Ramirez PCP: Dr. Ryley Jeter MD Status:REG ER Location: ED HPI History of Present Illness Chief Complaint: Shortness of Breath [facility] Medical History Pneumonia COVID Wears glasses [...] AdvReac Other Verified 04/03/25 00:16 (Glucocorticoids) (steroids) Eghyvjo-Pdq-Kxn Reductase AdvReac Other Verified 04/03/25 00:16 Inhibitor [...] (L/min) 4 Fraction of Inspired Oxygen (FIO2) [facility] MDM MDM Narrative Medical decision making narrative: [...] to ICU This note was generated with [employer] dictation software. It may contain incorrectwords, spelling, [...] 76.4 H Lymph % (Auto) 13.5 L Pecos % (Auto) 7.0 Eos % (Auto) 1.9 [...] possibly multifocal congestion and/or pneumonia. Reading Location: [place] [address] Discharge Plan Triage Chief Complaint: Shortness of [...] MD [Primary Care Provider] - Print Language: Belgian What to do if you have Problems For any increased pain, shortness of breath, bleeding, nausea or vomiting, chestpain, or any unexpected problems, contact your Primary Care Provider. Call [facility] ([phone]) or report tothe closest Emergency Room. Call 911 if necessary. 04/03/25 0411 Cosigner Signature (if applicable): CC: Dr. Ryley Jeter MD ~ Signed [facility]06-03-2025 Radiology Diagnostic study note [facility] Imaging Services [address] [place], [place] [address] CTA Chest W/WO Contrast MR#: [id number] Acct: [id number] Name: ENOC ARMANDO Rep #: [id number] : 1945 M 79 From: Darcy Reese MD PCP: Dr. Ryley Jeter MD Status: REG ER Study:CTA Chest W/WO Contrast Date of Exam: 04/03/25 Exam# [id number] Ordering Dr: Mine Brandon DO PROCEDURE: CTA [...] pulmonary embolus or aortic dissection. Reading Location: [place] [address] CC: Dr. Ryley Jeter MD; Dr. John Brandon DO ~ Derrick Hand: Signed [facility]06-03-2025 Radiology Diagnostic study note [facility] Imaging Services [address] [place] [address] Chest 1 View (Portable) MR#: [id number] Acct: [id number] Name: ENOC ARMANDO Rep #: [id number] : 1945 M 79 From: Darcy Reese MD PCP: Dr. Ryley Jeter MD Status: REG ER Study:Chest 1 View (Portable) Date of Exam: 04/03/25 Exam# [id number] Ordering Dr: Mine Brandon DO PROCEDURE: CHEST [...] possibly multifocal congestion and/or pneumonia. Reading Location: [place] [address] CC: Dr. Ryley Jeter MD; Dr. John Brandon DO ~ Derrick Hand: Signed [facility]05-27-2025 Telephone encounter Note* Telephone Encounter - Ej Guidry MA - 03/27/2025 1:23 PM EDT Called pt's Alice with lab results per Dr. Small. Alice verbalized understanding and had no further questions. [id number] Miscellaneous Notes* Telephone Encounter - Ej Guidry [...] To: Woo Small MD documented in this [id number] Telephone encounter Note* Telephone Encounter - Ej Guidry MA - 03/27/2025 10:50 AM EDT Left voicemail asking for pt to call back to go over lab results per Dr. Small. Given phone number tocall back. [id number] Telephone encounter Note* Telephone Encounter - Ej [...] 7:18 AM EDT To: Woo Small MD [id number] NotePatient ID: Enoc Armando is a 79 [...] being taken. Patient does not see a time cycle operator. Eye exam is current. Currently taking: No [...] medications, past family his (more content not included)...[facility]05-12-2025 History of Present illness Narrative* Paty Ortega, CYCLE TOURING GUIDE - 03/12/2025 1:50 PM EDT Images from [...] being taken. Patient does not see a time cycle operator. Eye exam is current. Currently taking: No [...] if BG <150 at HS. Retinopathy: Negative CFA. 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 Had bilat cataract extraction Dr. Lopez. Sees Dr. Browne in [place] every year routinely.Has blurred vision with low [...] Call if BG consistently <70 or >250. [phone] Continue to check blood sugar 3 times [...] CNP 03/12/25 1:21 PM documented in this [id number] NoteGeneral Cardiology New Patient Clinic Consult [facility], Heart & Vascular 03/09/2025 Woo Small MD [address] [place] [address], 3rd Floor Medical Office Building [facility] [phone] Patient: Enoc Armando Date of : [...] to be ischemic Coronary 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 (Primary) Patient underwent [...] No follow-ups on file. Woo Small MD, [facility] Non-Invasive Cardiology [facility] P:[phone] F:[phone] History of Present Illness: Enoc Armando is a 79 y.o. man with a past medical history of insulin-dependent diabetes for 30 years, history of tobacco use, recent COVID infection with systolic dysfunction ejection fraction ranging from 35 to 45% who presented initially to [facility] care. He underwent stress testing which showed inferior wall abnormality as well as ejection fraction of 50%. I initially met with him back in January 2024 and he was doing quite well, however he presented in October with symptoms of fatigue, malaise, flash pulmonary edema and hypertensive emergency with reduced ejection fraction at [facility]. Left heart catheterization was ultimately [...] Carotid artery stenosis CHF (congestive heart failure) ([facility]) CKD (chronic kidney disease) stage 4, GFR 15-29 ml/min ([facility]) Diabetes mellitus type 1 (HCC) Emphysema [...] Angiogram; Surgeon: Elías Rodriguez MD; Location: [facility]; Service: Cardiovascular MN CATH PLMT L HRT & ARTS W/NJX & ANGIO IMG S&I N/A 10/27/2024 Procedure: Left Heart Cath; Surgeon: Elías Rodriguez MD; Location: [facility]; Service: Cardiovascular SKIN CANCER EXCISION 09/2021 L ear Family History Problem Relation Age of Onset Coronary artery disease Father Alzheimer's disease Father Social History Tobacco Use Smoking Statu (more content not included)...[facility] [id number] History of Present illness Narrative* Woo Small MD - 03/09/2025 9:39 AM EDT General Cardiology New Patient Clinic Consult [facility], Heart & Vascular 03/09/2025 Woo Small MD [address] [place] [address] 3rd Floor Medical Office [facility] [address] Patient: Enoc Armando Date of : [...] to be ischemic Coronary 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 (Primary) Patient underwent [...] No follow-ups on file. Woo Small MD, [facility] Non-Invasive Cardiology [facility] P:[phone] F:[phone] History of Present Illness: Enoc Armando is a 79 y.o. man with a past medical history of insulin-dependent diabetes for 30 years, history of tobacco use, recent COVID infection with systolic dysfunction ejection fraction ranging from 35 to 45% who presented initially to [facility] care. He underwent stress testing which showedinferior wall abnormality as well as ejection fraction of 50%. I initially met with him back in January 2024 and he was doing quite well, however he presented in October with symptoms of fatigue, malaise, flash pulmonary edema and hypertensive emergency with reduced ejection fraction at [facility]. 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 Tobacco abuse Past Surgical History: Procedure Laterality Date CATARACT EXT/ECCE Bilateral 12/2012,07/2014 MN CATH PLMT L HRT & ARTS W/NJX & ANGIO IMG S&I N/A 10/27/2024 Procedure: Coronary Angiogram; Surgeon: Elías Rodriguez MD; Location: [facility];Service: Cardiovascular MN CATH PLMT L HRT & ARTS W/NJX & ANGIO IMG S&I N/A 10/27/2024 Procedure: Left Heart Cath; Surgeon: Elías Rodriguez MD; Location: [facility]; Service: Cardiovascular SKIN CANCER EXCISION 09/2021 L ear Family History Problem Relation Age of Onset Coronary artery disease Father Alzheimer's disease Father Social History Tobacco Use Smoking Status Every Day Current packs/day: 0.50 Average packs/day: 0.5 packs/day for 61.4 years (30.7 ttl pk-yrs) Types: Cigarettes Start date: 1963 Smokeless Tobacco Never Allergies: Qsjgguy-qpt-drp reductase inhibitors All of the information has [...] 3 tablet, Rfl: 3 OXYGEN-AIR DELIVERY [employer] [facility] [employer], Inhale 2 L/min See Admin Instructions ., [...] mood and affect, appropriate conversation Cardiovascular Studies: [facility] 2024 Echo 2023 Carotids 2024 Summary 1. Abnormal pharmacologic nuclear SPECT myocardial perfusion study. 2. No diagnostic ECG changes with regadenoson. 3. There is decreased radiotracer uptake within the basal-mid inferoseptal and distal anterior fuenets on stress imaging which is not present [...] arterial duplex was normal Echocardiogram reviewed from [facility], 10/11/2023 moderately decreased ejection fraction estimated [...] history suggesting prior/existing ASCVD documented in this [id number] Instructions* Patient Instructions* Woo Small MD - 03/09/2025 7:56 AM EDT How to Contact your Care Team: Provider: Dr. Woo Small MD Clinic Nurse: FIDEL Moran Clinic MA: SUSAN Pagan REFILLS: When in need for refills please call your care team or the office at [phone]. Please include medication name, pharmacy name, and [...] work in 2 weeks documented in this [id number] NoteHMS DISCHARGE SUMMARY -- [facility] Enoc Armando : 1945 Admitted: 02/28/2025 Discharge Date: 03/05/25 PCP Handoff Recommended Outpatient Testing None Results Pending At Discharge None Clinical Summary Enoc Armando is a 79 y.o. male patient of Ryley Jeter MD with history of type I IDDM, hypertension, CAD, diastolic HF, dyslipidemia, COPD, CKD presented to [facility] on 02/28/2025 with shortness of breath. [...] by mouth daily . (more content not included)...[facility]05-04-2025 NoteHMS PROGRESS NOTE Patient Name: Enoc Armando : 1945 Assessment and Plan Enoc Armando is a 79 y.o. male patient of Ryley Jeter MD with history of type I IDDM, hypertension, CAD, diastolic HF, dyslipidemia, COPD, CKD presented to [facility] on 02/28/2025 with shortness of breath. [...] AUTHENTICATED BY BERNADETTE PARNELL ON 03/04/2025 11:10:[address] [place] [address] 03-03-2025 NoteHMS PROGRESS NOTE Patient Name: Enoc Armando : 1945 Assessment and Plan Enoc Armando is a 79 y.o. male patient of Ryley Jeter MD with history of type I IDDM, hypertension, CAD, diastolic HF, dyslipidemia, COPD, CKD presented to [facility] on 02/28/2025 with shortness of breath. [...] affect AUTHENTICATED BY BERNADETTE PARNELL, ON 03/03/2025 12:05:[address] [place] [address] 03-03-2025 NoteGeneral Cardiology Inpatient Follow-up Heart & Vascular [facility] 03/03/2025 Aparna Browne, [facility] Patient: Enoc Armando Date of : 1945 (79 y.o.) PCP: Ryley Jeter MD Primary stream control officer: Assessment/Plan: Enoc Armando is a 79 y.o. [...] dictation software was used Aparna Browne MSN, SENIOR SALES OPERATIONS ANALYST, ANP-C [1] Current Facility-Administered Medications Medication Dose [...] 0-5,000 Units Intravenous Con (more content not included)...[facility]05-02-2025 NoteHMS PROGRESS NOTE Patient Name: Enoc Armando : 1945 Assessment and Plan Enoc Armando is a 79 y.o. male patient of Ryley Jeter MD with history of type I IDDM, hypertension, CAD, diastolic HF, dyslipidemia, COPD, CKD presented to [facility] on 02/28/2025 with shortness of breath. [...] affect AUTHENTICATED BY PEMA DUNBAR, ON 03/02/2025 13:48:04[facility] 03-01-2025 NoteHMS PROGRESS NOTE Patient Name: Enoc Armando : 1945 Assessment and Plan Enoc Armando is a 79 y.o. male patient of Ryley Jeter MD with history of type I IDDM, hypertension, CAD, diastolic HF, dyslipidemia, COPD, CKD presented to [facility] on 02/28/2025 with shortness of breath. [...] affect AUTHENTICATED BY PEMA DUNBAR, ON 03/01/2025 12:52:52[facility] 02-28-2025 NoteHMS PROGRESS NOTE Patient Name: Enoc Armando : 1945 Assessment and Plan Enoc Armando is a 79 y.o. male patient of Ryley Jeter MD with history of type I IDDM, hypertension, CAD, diastolic HF, dyslipidemia, COPD, CKD presented to [facility] on 02/28/2025 with shortness of breath. [...] affect AUTHENTICATED BY PEMA DUNBAR, ON 02/28/2025 13:04:[address] [place] [address] 02-28-2025 NoteHMS HISTORY AND PHYSICAL -- [facility] Patient Name: Enoc Armando : 1945 MR #: [id number] Admit Date: 02/28/2025 Physicians: Ryley Jeter MD (Family); No ref. provider found (Referring) Enoc Armando is a 79 y.o. male patient of Ryley Jeter MD with history of type I IDDM, hypertension, CAD, diastolic HF, dyslipidemia, COPD, CKD presented to [facility] on 02/28/2025 with shortness of breath. [...] diastolic HF, dyslipidemia, COPD, CKD presented to [facility] on 02/28/2025 with shortness of breath. [...] Angiogram; Surgeon: Elías Rodriguez MD; Location: [facility]; Service: Cardiovascular MN CATH PLMT L HRT & ARTS W/NJX & ANGIO IMG S&I N/A 10/27/2024 Procedure: Left Heart Cath; Surgeon: Elías Rodriguez MD; Location: [facility]; Service: Cardiovascular SKIN CANCER EXCISION 09/2021 L ear Family History Family History Problem Relation Age of Onset Coronary artery disease Father Alzheimer's disease Father Social History Tobacco Use History[1] Social History Substance and Sexual Activity Alcohol Use No Alcohol/week: 0.0 standard drinks of alcohol Social History Substance and Sexual Activity Drug Use No Allergy Information I have reviewed the patient's allergies. Daqptzk-avr-jad reductase inhibitors Home Medications Home medications were reviewed. Review Of Systems All relevant systems have been reviewed and are negative except as noted in HPI or below Physical Examination BP (!) 194/62 Pulse 97 Temp 97.8 degrees F (36.6 degrees C) (Oral) Resp (!) 22 Ht 5' 7 Wt 65.8 (more content not included)...[facility]04-28-2025 History of Present illness Narrative* Ayanna [...] DO 02/26/25 1:17 PM documented [facility] Work Phone: [phone]) 957-474404-16-2025 History of Present illness Narrative* Ej Guidry MA - 02/14/2025 11:02 AM EDT Refaxed letter written on 01/18/[address] Small to [facility]. documented in this [id number] Instructions* Patient Instructions* Luisa Easley RN - 11/14/2024 11:36 AM EST How to Contact your Care Team: Provider: Dr. Woo Small MD Clinic Nurse: FIDEL Moran Clinic MA: SUSAN Pagan REFILLS: When in need for refills please call your care team or the office at [phone]. Please include medication name, pharmacy name, and specify 30-day or 90-day supply. Please check with your pharmacy within 24 hours of request for your refill. You must follow up as directed to continue current refills. Thank you! documented in this [id number] History of Present illness Narrative* Woo Small MD - 11/14/2024 10:40 AM EST General Cardiology New Patient Clinic Consult [facility], Heart & Vascular 11/14/2024 Woo Small MD [address] [place] [address] Patient: Enoc Armando Date of : 1945 (78 y.o.) PCP: Ryley Jeter MD Date of Service: 11/14/2024 Chief Complaint: Follow-up Assessment and Plan: 1. Coronary 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(Primary) Patient underwent left [...] 6 months (around 05/14/2025). Woo Small MD, [facility] Non-Invasive Cardiology [facility] P:[phone] F:[phone] History of Present Illness: Enoc Armando is a 78 y.o. man with a past medical history of insulin-dependent diabetes for 30 years, history of tobacco use, recent COVID infection with systolic dysfunction ejection fraction ranging from 35 to 45% who presented initially to [facility] care. He underwent stress testing which showedinferior wall abnormality as well as ejection fraction of 50%. I initially met with him back in January 2024 and he was doing quite well, however he presented in October with symptoms of fatigue, malaise, flash pulmonary edema and hypertensive emergency with reduced ejection fraction at [facility]. Left heart catheterization was ultimately [...] Angiogram; Surgeon: Elías Rodriguez MD; Location: [facility];Service: Cardiovascular MN CATH PLMT L HRT & ARTS W/NJX & ANGIO IMG S&I N/A 10/27/2024 Procedure: Left Heart Cath; Surgeon: Elías Rodriguez MD; Location: [facility]; Service: Cardiovascular SKIN CANCER EXCISION 09/2021 L ear Family History Problem Relation Age of Onset Coronary artery disease Father Alzheimer's disease Father Social History Tobacco Use Smoking Status Every Day Current packs/day: 0.50 Average packs/day: 0.5 packs/day for 61.0 years (30.5 ttl pk-yrs) Types: Cigarettes Start date: 1963 Smokeless Tobacco Never Allergies: Iteldvl-afh-nod reductase inhibitors All of the information has [...] 90 tablet, Rfl: 3 OXYGEN-AIR DELIV[employer] [facility] [employer], Inhale 2 L/min See Admin Instructions ., [...] mood and affect, appropriate conversation Cardiovascular Studies: [facility] 2024 Echo 2023 Carotids 2024 Summary [...] arterial duplex was normal Echocardiogram reviewed from [facility], 10/11/2023 moderately decreased ejection fraction estimated [...] history suggesting prior/existing ASCVD documented in this [id number] NoteGeneral Cardiology New Patient Clinic Consult [facility], Heart & Vascular 11/14/2024 Woo Small MD [address] [place] [id number] Patient: Enoc Armando Date of : 1945 (78 y.o.) PCP: Ryley Jeter MD Date of Service: 11/14/2024 Chief Complaint: Follow-up Assessment and Plan: 1. Coronary 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 (Primary) Patient underwent [...] 05/14/2025). Woo Small MD, FACC Non-Invasive Cardiology [facility] P:[phone] F:[phone] History of Present Illness: Enoc Armando is a 78 y.o. man with a past medical history of insulin-dependent diabetes for 30 years, history of tobacco use, recent COVID infection with systolic dysfunction ejection fraction ranging from 35 to 45% who presented initially to [facility] care. He underwent stress testing which showed inferior wall abnormality as well as ejection fraction of 50%. I initially met with him back in January 2024 and he was doing quite well, however he presented in October with symptoms of fatigue, malaise, flash pulmonary edema and hypertensive emergency with reduced ejection fraction at [facility]. Left heart catheterization was ultimately [...] Angiogram; Surgeon: Elías Rodriguez MD; Location: [facility]; Service: Cardiovascular MN CATH PLMT L HRT & ARTS W/NJX & ANGIO IMG S&I N/A 10/27/2024 Procedure: Left Heart Cath; Surgeon: Elías Rodriguez MD; Location: [facility]; Service: Cardiovascular SKIN CANCER EXCISION 09/2021 L ear Family History Problem Relation Age of Onset Coronary artery disease Father Alzheimer's disease Father Social History Tobacco Use Smoking Status Every Day Current packs/day: 0.50 Average packs/day: 0.5 packs/day for 61.0 years (30.5 ttl pk-yrs) Types: Cigarettes Start date: 1963 Smokeless Tobacco Never Allergies: Ughvzcx-lrz-oiw reductase inhibitors All of the information has been reviewed at today's visit and modified if necessary. Home Medications: Current Outpatient Medications: acetaminophen (Tylenol Arthritis Pain) 650 MG CR tablet, Take 1 (one) tablet (650 mg total) by mouth every 8 (eight) hours as needed for pain ., (more content not included)...[facility] [id number] NotePatient ID: Enoc Armando is a 78 [...] insulin gtt. . Hospitalized in [facility]. Reports URI symptoms with ear lockage. Pertinent [...] being taken. Patient does not see a time cycle operator. Eye exam is current. Currently taking: No [...] kg (148 lb) 01 (more content not included)...[facility]01-13-2025 History of Present illness Narrative* Paty Ortega, [...] insulin gtt. . Hospitalized in [facility]. Reports URI symptoms with ear lockage. Pertinent [...] being taken. Patient does not see a time cycle operator. Eye exam is current. Currently taking: No [...] if BG <150 at HS. Retinopathy: Negative CFA. 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 Had bilat cataract extraction Dr. Lopez. Sees Dr. Browne in [place] every year routinely.Has blurred vision with low [...] Call if BG consistently <70 or >250. [phone] Continue to check blood sugar 3 times [...] CNP 11/13/24 1:21 PM documented in this [id number] Evaluation + Plan note* Assessment & Plan [...] be performed in conjunction with coronary revascularization. [id number] Miscellaneous Notes* Assessment & Plan Note - [...] conjunction with coronary revascularization. documented in this [id number] NoteOFFICE CONSULTATION NOTE [facility] [address]) [facility] [address] [facility] [phone] Physicians: Ryley Jeter MD [...] ear left ear Toba (more content not included)...[facility]01-09-2025 History of Present illness Narrative* Kristy Parker MD - 11/09/2024 10:36 AM EST OFFICE CONSULTATION NOTE [facility] [address] ([address]) [facility] [address] [facility] [phone] Physicians: Ryley Jeter MD [...] Angiogram; Surgeon: Elías Rodriguez MD; Location: [facility];Service: Cardiovascular MN CATH PLMT L HRT & ARTS W/NJX & ANGIO IMG S&I N/A 10/27/2024 Procedure: Left Heart Cath; Surgeon: Elías Rodriguez MD; Location: [facility]; Service: Cardiovascular SKIN CANCER EXCISION 09/2021 L [...] by mouth daily . OXYGEN-AIR [employer] [facility] [employer] Inhale 2 L/min See Admin Instructions . [...] Reported on 11/09/2024 .) Allergies Allergen Reactions Albuygt-Kph-Ren Reductase Inhibitors Muscle cramps ROS Negative aside [...] 11/27/2023 Kristy Parker MD documented in this [id number] Instructions* Patient Instructions* Yesenia Mcdaniel MA - 11/09/2024 10:32 AM EST How to contact your Care Team: Provider: MD Georgia Ludwig CNP Nyoka Fauser, CNP Jill Bender, PA Nurse: Jeannie Rubio RN To reschedule office appointments call Scheduling [phone] In case of an emergency please call 911. When in need of refills please call the phone number listed above. Please include medication name, pharmacy name and specify 30 or 90 day supply Please check with your pharmacy within 24 hours of your request for refill. You must follow up as directed to continue current refills. Thank you! documented in this [id number] Amanda Armando [id number] @[email or web address]@ Brock Groves MD 11/07/24 Room/bed info [...] right heart failure which required admission to [facility] for hypertensive emergency and acute [...] artery stenosis - CHF (congestive heart failure) ([facility]) - CKD (chronic kidney disease) stage 4, GFR 15-29 ml/min ([facility]) - Diabetes mellitus type 1 ([facility]) - Emphysema lung ([facility]) - Hypercholesterolemia - Hypertension - Kidney stone 2006 Lithotripsy - Normocytic anemia - PAD (peripheral artery disease) ([facility]) - Pneumonia - Polyneuropathy - Spinal stenosis, lumbar - 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 - Tobacco abuse Past Surgical History: Procedure Laterality Date - CATARACT EXT/ECCE Bilateral 12/2012,07/2014 - MN CATH PLWV L HRT & ARTS W/NJX & ANGIO IMG S&I N/A 10/27/2024 Procedure: Coronary Angiogram; Surgeon: Elías Rodriguez MD; Location: [facility]; Service: Cardiovascular - MN CATH PLWV L HRT & ARTS W/NJX & ANGIO IMG S&I N/A 10/27/2024 Procedure: Left Heart Cath; Surgeon: Elías Rodriguez MD; Location: [facility]; Service: Cardiovascular - SKIN CANCER EXCISION 09/2021 [...] 3 - insulin g (more content not included)...[facility]01-07-2025 History of Present illness Narrative* Brock Groves MD - 11/07/2024 10:36 AM EST Enoc Armando [id number] @[email or web address]@ Brock Groves MD 11/07/24 Room/bed info not [...] right heart failure which required admission to [facility] for hypertensive emergency and acute [...] Lithotripsy Normocytic anemia PAD (peripheral artery disease) ([facility]) Pneumonia Polyneuropathy Spinal stenosis, lumbar 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 Allergies Allergen Reactions Jxelyme-Gpn-Nbd Reductase Inhibitors Muscle cramps Family History Problem [...] Resource Strain: Low Risk (10/11/2023) [facility], [facility] Overall Financial Resource Strain (CARDIA) Difficulty of [...] Addressed This Visit None documented in this [id number] Progress note* Quick Note - Karthik Sandoval RN - 10/28/2024 2:53 PM EST Patient blood sugar at 1:27pm measured 288. Blood sugar at this time measured 321. [facility] ordered to give 8 units of lispro at this time and to instruct patient to recheck blood sugar in a couple hours at home. Patient IV removed and discharge education provided at this time. Patient understands and verbalizes he will check blood sugar when home and to follow medication regimen after discharge [id number] Miscellaneous Notes* Quick Note - Karthik Sandoval RN - 10/28/2024 2:53 PM EST Patient blood sugar at 1:27pm measured 288. Blood sugar at this time measured 321. [facility] ordered to give [...] but appreciative with provided care. Bed alarm rehabilitation therapist light in reach. * Plan of Care [...] potasium and elevated glucose. documented in this [id number] NoteS DISCHARGE SUMMARY -- [facility] Enoc Armando Admitted: 10/27/2024 Discharge Date: 10/28/24 PCP Handoff Recommended Outpatient Testing none Results Pending At Discharge none Clinical Summary Enoc Armando is a 78 y.o. male patient of Ryley Jeter MD with history of coronary artery disease, type 1 diabetes, diastolic CHF, hypertension dyslipidemia COPD and lumbar spinal stenosis with chronic low back pain presented to [facility] on 10/27/2024 for an elective left [...] . Physician(s) Follow Up: Brock Groves MD [address] [place] [address] Follow up on 11/07/2024 Consultation for surgivcal [...] PM AUTHENTICATED BY NIDIA GARAY, ON 10/28/2024 14:19:[address] [place] [address] 10-28-2024 Hospital course Narrative* Nidia Garay MD - 10/28/2024 2:16 PM EST [facility] DISCHARGE SUMMARY -- [facility] Enoc Armando Admitted: 10/27/2024 Discharge Date: 10/28/24 PCP Handoff Recommended Outpatient Testing none Results Pending At Discharge none Clinical Summary Enoc Armando is a 78 y.o. male patient of Ryley Jeter MD with history of coronary artery disease, type 1 diabetes, diastolic CHF, hypertension dyslipidemia COPD and lumbar spinal stenosis withchronic low back pain presented to [facility] on 10/27/2024 for an elective left [...] . Physician(s) Follow Up: Brock Groves MD [address] [place] [address] Follow up on 11/07/2024 Consultation for surgivcal [...] on 10/28/24, 2:16 PM documented in this [id number] NoteDaily Progress Note Assessment/Plan: Principal Problem: Hyperglycemia [...] Garay.. AUTHENTICATED BY ZOILA POLLARD, ON 10/28/2024 14:16:[address] [place] [address] 10-28-2024 History of Present illness Narrative* Zoila [...] Garay MD - 10/28/2024 11:36 AM EST [facility] PROGRESS NOTE Assessment and Plan Enoc Armando is a 78 y.o. male patient of Ryley Jeter MD with history of coronary artery disease, type 1 diabetes, diastolic CHF, hypertension dyslipidemia COPD and lumbar spinal stenosis withchronic low back pain presented to [facility] on 10/27/2024 for an elective left [...] normal mood and affect documented in this [id number] NoteHMS PROGRESS NOTE Assessment and Plan Enoc Armando is a 78 y.o. male patient of Ryley Jeter MD with history of coronary artery disease, type 1 diabetes, diastolic CHF, hypertension dyslipidemia COPD and lumbar spinal stenosis with chronic low back pain presented to [facility] on 10/27/2024 for an elective left [...] affect AUTHENTICATED BY NIDIA GARAY, ON 10/28/2024 11:43:[address] [place] [address] 10-28-2024 Plan of care note* Plan of Care - Karthik Sandoval RN - 10/28/2024 9:11 AM EST Problem: Actual or potential alteration in health Goal: Absence of healthcare acquired conditions Outcome: Partially Met Goal: Knowledge of Interdisciplinary Plan of Care Outcome: Partially Met Goal: Knowledge of Enviroment Outcome: Partially Met Problem: Pressure Injury, Risk of Goal: Absence of pressure injury Outcome: Partially Met [address]ufqObsnrr63-34-4553 Progress note* Quick Note - Julia Chan RN - 10/28/2024 8:05 AM EST Patient stands at edge of bed to void and request to go to restroom. Patient does not want bedrest orders that are in place at this time. Patient is anxious for dc to home but appreciative with provided care. Bed alarm rehabilitation therapist light in reach. [address]LrxjMczivx39-89-4794 Plan of care note* Plan of Care [...] continue to monitor and report any concerns. [address]EiixNhbnmd79-91-7480 Progress note* Quick Note - Julia Chan [...] drip infusing and started at 6.6 units/hr. [address]QmneNvwyge23-31-1950 Progress note* Quick Note - Julia Chan [...] excluding ice chips and sips with meds [id number] Progress note* Quick Note - Julia Chan RN - 10/27/2024 10:18 PM EST This RN received report from observation unit nurse via phone. [id number] Plan of care note* Plan of Care - Carlita Roth RN - 10/27/2024 9:42 PM EST Problem: Actual or potential alteration in health Goal: Absence of healthcare acquired conditions Outcome: Partially Met Goal: Knowledge of Interdisciplinary Plan of Care Outcome: Partially Met Goal: Knowledge of Enviroment Outcome: Partially Met [id number] History and physical note* Cintia Benitez MD - 10/27/2024 8:26 PM EST [facility] HISTORY AND PHYSICAL -- [facility] Patient Name: Enoc Armando : 1945 MR #: [id number] Admit Date: 10/27/2024 Physicians: Ryley Jeter MD (Family); No ref. provider found (Referring) Enoc Armando is a 78 y.o. male patient of Ryley Jeter MD with history of coronary artery disease, type 1 diabetes, diastolic CHF, hypertension dyslipidemia COPD and lumbar spinal stenosis withchronic low back pain presented to [facility] on 10/27/2024 for an elective left [...] with chronic low back pain presented to [facility] on 10/27/2024 for an elective left [...] Information I have reviewed the patient's allergies. Hfrvfto-ini-pzm reductase inhibitors Home Medications Home medications were [...] normal coloration Psych: normal mood and affect [id number] NoteHMS HISTORY AND PHYSICAL -- [facility] Patient Name: Enoc Armando : 1945 MR #: [id number] Admit Date: 10/27/2024 Physicians: Ryley Jeter MD (Family); No ref. provider found (Referring) Enoc Armando is a 78 y.o. male patient of Ryley Jeter MD with history of coronary artery disease, type 1 diabetes, diastolic CHF, hypertension dyslipidemia COPD and lumbar spinal stenosis with chronic low back pain presented to [facility] on 10/27/2024 for an elective left [...] with chronic low back pain presented to [facility] on 10/27/2024 for an elective left [...] Information I have reviewed the patient's allergies. Ahkqdkr-mjg-kpf reductase inhibitors Home Medications Home medications were [...] Skin: normal coloration Psych: (more content not included)...[facility]12-27-2024 History and physical note* Cintia Benitez MD - 10/27/2024 8:26 PM EST [facility] HISTORY AND PHYSICAL -- [facility] Patient Name: Enoc Armando : 1945 MR #: [id number] Admit Date: 10/27/2024 Physicians: Ryley Jeter MD (Family); No ref. provider found (Referring) Enoc Armando is a 78 y.o. male patient of Ryley Jeter MD with history of coronary artery disease, type 1 diabetes, diastolic CHF, hypertension dyslipidemia COPD and lumbar spinal stenosis withchronic low back pain presented to [facility] on 10/27/2024 for an elective left [...] with chronic low back pain presented to [facility] on 10/27/2024 for an elective left [...] Information I have reviewed the patient's allergies. Nodbovq-ylt-ptj reductase inhibitors Home Medications Home medications were [...] Enoc Armando Admit Date: 12261205 MR #: [id number] : 1945 The H&P has been reviewed [...] need for emergency surgery, need for pacemaker, [place], stroke, or cardiac arrest/. Patient voiced understanding and agreed to proceed. Sedation Plan: Moderate ASA Classification: ASA 3: A patient with severe systemic disease. Mallampati Score: Class III: Only the soft palate is visible Elías Rodriguez MD 10/27/2024 8:17 AM Source Note - Woo Small MD - 10/18/2024 1:20 PM EST General Cardiology New Patient Clinic Consult [facility], Heart & Vascular 10/18/2024 Woo Small MD [address] [place] [address] 3rd Floor Medical Office [facility] [address] Patient: Enoc Armando Date of : [...] No follow-ups on file. Woo Small MD, [facility] Non-Invasive Cardiology [facility] P:[phone] F:[phone] History of Present Illness: Enoc Armando is a 78 y.o. man with a past medical history of insulin-dependent diabetes for 30 years, history of tobacco use, recent COVID infection with systolic dysfunction ejection fraction ranging from 35 to 45% who presented initially to [facility] care. He underwent stress testing which showedinferior wall abnormality as well as ejection fraction of 50%. I initially met with him back in January and he was doing quite well, however today he presents with progressive symptoms of fatigue, malaise, and a recent heart failure exacerbation at [facility] for hypertensive emergency and acute [...] Cigarettes Smokeless Tobacco Never Allergies: Prednisone and Glpibgx-wsa-wan reductase inhibitors All of the information has [...] 50%, rest LVEF 51%. Echocardiogram reviewed from [facility], 10/11/2023 moderately decreased ejection fraction estimated [...] history suggesting prior/existing ASCVD documented in this [id number] Progress note* Quick Note - Zoila Pollard [...] stage IV kidney disease, BUN/creatinine: 92/2.60 respectively. [id number] Progress note* Quick Note - Mary Willis RN - 10/27/2024 12:[address] Rodriguez notified and at bedside to speak to patient r/g Critical potasium and elevated glucose. [id number] Attending History and physical note* Elías Rodriguez MD - 10/27/2024 8:17 AM EST INTERVAL HISTORY AND PHYSICAL Patient Name: Enoc Armando Admit Date: 12261205 MR #: [id number] [facility] [id number] : 1945 The H&P has been reviewed [...] need for emergency surgery, need for pacemaker, [place], stroke, or cardiac arrest/. Patient voiced understanding and agreed to proceed. Sedation Plan: Moderate ASA Classification: ASA 3: A patient with severe systemic disease. Mallampati Score: Class III: Only the soft palate is visible Elías Rodriguez MD 10/27/2024 8:17 AM Source Note - Woo Small MD - 10/18/2024 1:20 PM EST General Cardiology New Patient Clinic Consult [facility] Heart & Vascular 10/18/2024 Woo Small MD [address] [place] [address] 3rd Floor Medical Office [facility] [address] Patient: Enoc Armando Date of : [...] No follow-ups on file. Woo Small MD, [facility] Non-Invasive Cardiology [facility] P:[phone] F:[phone] History of Present Illness: Enoc Armando is a 78 y.o. man with a past medical history of insulin-dependent diabetes for 30 years, history of tobacco use, recent COVID infection with systolic dysfunction ejection fraction ranging from 35 to 45% who presented initially to [facility] care. He underwent stress testing which showedinferior wall abnormality as well as ejection fraction of 50%. I initially met with him back in January and he was doing quite well, however today he presents with progressive symptoms of fatigue, malaise, and a recent heart failure exacerbation at [facility] for hypertensive emergency and acute [...] Cigarettes Smokeless Tobacco Never Allergies: Prednisone and Bfnaduo-nyx-oos reductase inhibitors All of the information has [...] 50%, rest LVEF 51%. Echocardiogram reviewed from [facility], 10/11/2023 moderately decreased ejection fraction estimated [...] has a medical history suggesting prior/existing ASCVD [facility] Work Phone: 1(990) 556-737712-27-2024 Hospital Discharge instructions* Discharge Instructions* Sonya King RN - 10/27/2024 8:16 AM EST [facility] Post Cardiac Catheterization Discharge Instructions Site Care Leave Bandage in place the night of your catheterization. Watch for any bleeding or oozing from thesite. If this occurs, lie flat and place direct pressure on the bandage for 20 minutes. If bleedingreoccurs call [facility]. For groins, remove your bandage the following [...] shower 24 hours after the procedure. Call [facility] at [phone] if you notice any of the following: [...] need of prescription assistance, please notify the [facility] nurse or call the office. If you were prescribed Plavix (clopidogrel), Effient (prasugrel), or Brilinta (ticagrelar) after your procedure, DO NOT STOP taking this medication unless told to do so by your [facility] stream control officer. Follow up appointments, tests or procedures will be on your discharge paperwork under What's next. Please call [facility] at [phone] to reschedule any appointments if needed or if you have any questions or concerns. Thank you! documented in this [id number] Instructions* Patient Instructions* Luisa Easley RN - 10/18/2024 1:27 PM EST How to Contact your Care Team: Provider: Dr. Woo Small MD Clinic Nurse: Luisa Vega RN Clinic MA: Ej Guidry MA REFILLS: When in need for refills please call your care team or the office at [phone]. Please include medication name, pharmacy name, and specify 30-day or 90-day supply. Please check with your pharmacy within 24 hours of request for your refill. You must follow up as directed to continue current refills. Thank you! Heart Catheterization Date of your procedure: 10/27/2024 at 8:00am Please arrive at [facility]. Please park in the garage next to the medical office building. If needed, elementary art teacher parking is available at the front entrance [...] questions or concerns please contact us at [phone]. documented in this [id number] History of Present illness Narrative* Woo Small MD - 10/18/2024 1:20 PM EST General Cardiology New Patient Clinic Consult [facility] Heart & Vascular 10/18/2024 Woo Small MD [address] [place] [address], 3rd Floor Medical Office [facility] [address] Patient: Enoc Armando Date of : [...] No follow-ups on file. Woo Small MD, [facility] Non-Invasive Cardiology [facility] P:[phone] F:[phone] History of Present Illness: Enoc Armando is a 78 y.o. man with a past medical history of insulin-dependent diabetes for 30 years, history of tobacco use, recent COVID infection with systolic dysfunction ejection fraction ranging from 35 to 45% who presented initially to [facility] care. He underwent stress testing which showedinferior wall abnormality as well as ejection fraction of 50%. I initially met with him back in January and he was doing quite well, however today he presents with progressive symptoms of fatigue, malaise, and a recent heart failure exacerbation at [facility] for hypertensive emergency and acute [...] Cigarettes Smokeless Tobacco Never Allergies: Prednisone and Xoedxqi-vxk-zpi reductase inhibitors All of the information has [...] 50%, rest LVEF 51%. Echocardiogram reviewed from [facility], 10/11/2023 moderately decreased ejection fraction estimated [...] history suggesting prior/existing ASCVD documented in this [id number] NoteGeneral Cardiology New Patient Clinic Consult [facility] Heart & Vascular 10/18/2024 Woo Small MD [address] [place] [address], 3rd Floor Medical Office [place] [id number] Patient: Enoc Armando Date of : 1945 [...] No follow-ups on file. Woo Small MD, [facility] Non-Invasive Cardiology [facility] P:[phone] F:[phone] History of Present Illness: Enoc Armando is a 78 y.o. man with a past medical history of insulin-dependent diabetes for 30 years, history of tobacco use, recent COVID infection with systolic dysfunction ejection fraction ranging from 35 to 45% who presented initially to [facility] care. He underwent stress testing which showed inferior wall abnormality as well as ejection fraction of 50%. I initially met with him back in January and he was doing quite well, however today he presents with progressive symptoms of fatigue, malaise, and a recent heart failure exacerbation at [facility] for hypertensive emergency and acute [...] Cigarettes Smokeless Tobacco Never Allergies: Prednisone and Hnvvcnx-how-pak reductase inhibitors All of the information has [...] 90 tablet, Rfl: 3 [employer] [facility] [employer], Inhale 2 L/min See Admin Instructions ., Disp: , Rfl: tamsulosin (FLOMAX) 0.4 mg capsule, Take 1 ( (more content not included)...[facility] [id number] Telephone encounter Note* Telephone Encounter - Luisa Easley RN - 10/06/2024 2:45 PM EST Spoke with pt and reviewed Dr. Small's comments and suggestions. Pt was agreeable to starting Imdur 30mg daily and confirmed appt with Dr. Small on 10/18 at 1:20pm in the [place] location. Pt expressedappreciation and understanding. [id number] Telephone encounter Note* Telephone Encounter - Luisa [...] are involved abnormalities can be difficult to olive picker Would he be okay coming in [...] Woo Small MD We received everything from [place] on him-I know we were waiting on this to see about changing things up ----- Message ----- From: Ej Guidry MA Sent: 10/04/2024 2:01 PM EST To: Luisa Easley RN Records from [facility] [id number] Miscellaneous Notes* Telephone Encounter - Luisa Easley RN - 10/06/2024 2:45 PM EST Spoke with pt and reviewed Dr. Small's comments and suggestions. Pt was agreeable to starting Imdur 30mg daily and confirmed appt with Dr. Small on 10/18 at 1:20pm in the [place] location. Pt expressedappreciation and understanding. * Telephone [...] are involved abnormalities can be difficult to olive picker Would he be okay coming in [...] Sent: 10/04/2024 2:07 PM EST To: Woo Smlal MD We received everything from [place] on him-I know we were waiting on this to see about changing things up ----- Message ----- From: Ej Guidry MA Sent: 10/04/2024 2:01 PM EST To: Luisa Easley RN Records from [facility] documented in this [id number] [facility] 09-12-2024 [facility]10-29-2024 History of Present illness Narrative* Ayanna [...] in this [facility] Work Phone: 1(279) 710-794409-20-2024 NotePatient ID: Enoc Armando is a 78 [...] O2, C-pap, etc. Hospitalized in [facility] with CHF, pleural effusions and elevated troponin. [...] being taken. Patient does not see a time cycle operator. Eye exam is current. Currently taking: No [...] Neurological: Mental Status: He (more content not included)...[facility]09-20-2024 History of Present illness Narrative* Paty Ortega, [facility] - 07/21/2024 1:58 PM EDT Images [...] O2, C-pap, etc. Hospitalized in [facility] with CHF, pleural effusions and elevated troponin. [...] being taken. Patient does not see a time cycle operator. Eye exam is current. Currently taking: No [...] if BG <150 at HS. Retinopathy: Negative CFA. 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 Had bilat cataract extraction Dr. Lopez. Sees Dr. Browne in [place] every year routinely.Has blurred vision with low [...] Call if BG consistently <70 or >250. [phone] Continue to check blood sugar 3 times [...] CNP 07/21/24 1:21 PM documented in this [id number] Instructions* Patient Instructions* Luisa Easley RN - 04/24/2024 10:08 AM EDT How to Contact your Care Team: Provider: Dr. Woo Small MD Clinic Nurse: Luisa Easley RN Clinic MA: Ej Guidry MA REFILLS: When in need for refills please call your care team or the office at [phone]. Please include medication name, pharmacy name, and specify 30-day or 90-day supply. Please check with your pharmacy within 24 hours of request for your refill. You must follow up as directed to continue current refills. Thank you! documented in this [id number] History of Present illness Narrative* Woo Small MD - 04/24/2024 9:40 AM EDT General Cardiology New Patient Clinic Consult [facility] Heart & Vascular 04/24/2024 Woo Small MD [address] [place] [address] Patient: Enoc Armando Date of : [...] 1 year (around 04/24/2025). Woo Small MD, [facility] Non-Invasive Cardiology [facility] P:[phone] F:[phone] History of Present Illness: Enoc Armando is a 78 y.o. man with a past medical history of insulin-dependent diabetes for 30 years, history of tobacco use, recent COVID infection with systolic dysfunction ejection fraction ranging from 35 to 45% who presented initially to [facility] care. He underwent stress testing which showedno [...] Cigarettes Smokeless Tobacco Never Allergies: Prednisone and Mwudnwo-hxo-ccz reductase inhibitors All of the information has [...] 90 tablet, Rfl: 3 [employer] [facility], Inhale 2 L/min See Admin Instructions ., [...] 50%, rest LVEF 51%. Echocardiogram reviewed from [facility], 10/11/2023 moderately decreased ejection fraction estimated [...] to 77 The patient has a prior [place] or stroke diagnosis documented in this [id number] NoteGeneral Cardiology New Patient Clinic Consult [facility] Heart [facility] Vascular 04/24/2024 Woo Small MD [address] [place] [id number] Patient: Enoc Armando Date of : 1945 [...] 1 year (around 04/24/2025). Woo Small MD, [facility] Non-Invasive Cardiology [facility] P:[phone] F:[phone] History of Present Illness: Enoc Armando is [...] Cigarettes Smokeless Tobacco Never Allergies: Prednisone and Rsfxoes-tqj-qcv reductase inhibitors All of the information has [...] (Patient taking differently: T (more content not included)...[facility]05-28-2024 Telephone encounter Note* Telephone Encounter - Ej Guidry MA - 03/28/2024 1:53 PM EDT Pt was last seen on 01/14/24 by Aylin Lacy CNP. Refills appropriate. Routing to Dr. Garay as Dr. Small is out of the office. [id number] Miscellaneous Notes* Telephone Encounter - Ej Guidry MA - 03/28/2024 1:53 PM EDT Pt was last seen on 01/14/24 by Aylin Lacy CNP. Refills appropriate. Routing to Dr. Garay as Dr. Small is out of the office. documented in this [id number] Evaluation + Plan note* Assessment & Plan Note - CULLEN Guzmán DNP - 02/24/2024 2:39 PM EDT Associated Problem(s): CKD (chronic kidney disease) Creatinine is stable at 1.92 and stable, stage IIIb, blood pressure is well controlled, diabetes well controlled, not using NSAIDs. [facility] Work Phone: 1(299) 483-821204-25-2024 Miscellaneous Notes* Assessment & Plan Note - [...] in this [facility] Work Phone: 1(437) 146-844704-25-2024 Evaluation + Plan note* Assessment & Plan Note - CULLEN Guzmán DNP - 02/24/2024 2:38 PM EDTAssociated Problem(s): Type 1 diabetes mellitus with diabetic neuropathy (Multi) Follows with endocrinology, is not to use SGLT2 due to Type I diabetes [facility] Work Phone: 1(825) 724-240404-25-2024 Evaluation + Plan note* Assessment & Plan Note - CULLEN Guzmán DNP - 02/24/2024 2:38 PM EDTAssociated Problem(s): Essential hypertension BP is well controlled on lisinopril and metoprolol, no changes [facility] Work Phone: 1(818) 608-752604-25-2024 History of Present illness Narrative* CULLEN Guzmán [...] in this [facility] Work Phone: 1(136) 385-762304-19-2024 History of Present illness Narrative* Paty Ortega [...] O2, C-pap, etc. Hospitalized in [facility] with CHF, pleural effusions and elevated troponin. [...] being taken. Patient does not see a time cycle operator. Eye exam is current. Currently taking: No [...] if BG <150 at HS. Retinopathy: Negative CFA. 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 Had bilat cataract extraction Dr. Lopez. Sees Dr. Browne in [place] every year routinely.Has blurred vision with low [...] Call if BG consistently <70 or >250. [phone] Continue to check blood sugar 3 times [...] CNP 02/18/24 1:21 PM documented in this [id number] Instructions* Patient Instructions* Robert Dominguez RN - 01/14/2024 11:46 AM EDT How to Contact your Care Team: Provider: Dr. Woo Small MD Clinic Nurse: Luisa Easley RN REFILLS: When in need for refills please call your care team or the office at [phone]. Please include medication name, pharmacy name, and specify 30-day or 90-day supply. Please check with your pharmacy within 24 hours of request for your refill. You must follow up as directed to continue current refills. Thank you! documented in this [id number] History of Present illness Narrative* Aylin Lacy CNP - 01/14/2024 11:00 AM EDT General Cardiology Returning Patient Clinic Visit [facility], Heart & Vascular 01/14/2024 Aylin Lacy CNP [address] [facility] Medical Office [facility] [id number] Patient: Enoc Armando Date of : 1945 (78 y.o.) Rotary Helper: Dr. Small PCP: Ryley Jeter MD Chief Complaint: Transitional care appointment Date of Service: 01/14/2024 Assessment and Plan: Systolic dysfunction with recovery of ejection fraction -Euvolemic on exam -Continue lisinopril 5 mg daily -Continue metoprolol succinate 25 mg daily -Continue Lasix 20 mg twice daily -He is following with nephrology in [place]. He has an upcoming appointment and labs [...] Next scheduled follow up. Aylin Lacy, MSN, SENIOR SALES OPERATIONS ANALYST, SENIOR DEVELOPER-C, PIT CRANE OPERATOR, ECG- General Cardiology [facility] History of Present Illness: Enoc Armando is a 78 y.o. man with a past medical history of hypertension, hyperlipidemia, insulin-dependent diabetes mellitus, CKD, smoker, emphysema, chronic hypoxemia and systolic dysfunction. He presents today for transitional care appointment. He was last seen in our office on 10/21/2023 by his primary stream control officer Dr. Small. Recent COVID infection at the end of last year and patient was notedto have systolic dysfunction with a ejection fraction ranging from 35 to 45%. He had left ventricular recovery noted on most recent echocardiogram from 11/30/2023, LVEF 63%. He presented to the [facility] on 11/27/2023 with complaints of respiratory [...] 25.50 Types: Cigarettes Smokeless Tobacco Never Allergies: Mzniedz-qps-nse reductase inhibitors All of the above information [...] 15 mL, Rfl: 11 [employer], Inhale 2 L/min See Admin Instructions ., [...] to 77 The patient has a prior [place] or stroke diagnosis documented in this [id number] Telephone encounter Note* Telephone Encounter - Ej [...] to Dr. Small for her to sign. [id number] Miscellaneous Notes* Telephone Encounter - Ej Guidry [...] for her to sign. documented in this [id number] Miscellaneous Notes* Quick Note - Ellie Aguilar CNP - 12/01/2023 11:20 AM EST [facility] ENCOUNTER FOR HOME MEDICAL EQUIPMENT PATIENT: Enoc Armando : 1945 Statement of Care: I certify that Enoc Armando is under my care and that I, a Nurse Practitioner, Physician's Petroleum Terminal Plant Operator, or Resident working with me, had a hfcu-yj-qrzn encounter with this patient yesterday to evaluate and discuss the need for home medical equipment. I certify that based on the findings of this evaluation, which included but was not limited to the ptsv-fg-himj requirements, the following home medical equipment is [...] EST Query 2 of 2 Noted 11/27 [facility] PMHx documentation of CKD Clinical Indicators: [...] ESRD Thank you, Aubree CRAWFORD,RN Clinical Documentation fish rod maker After business hours you may contact Ebony Anne at [phone] (Weekdays until 10 PM and weekends 8 AM -10 PM) * CDI Query - Cintia Benitez MD - 11/29/2023 6:14 AM EST Noted 11/27 [facility] documentation of heart failure. Clinical Indicators: 11/27 [facility] HP: CHF....-Continue IV [...] crackles at base Test results: 11/27: BNP: 03461 Please specify the acuity and type of heart failure in the progress notes. For Example: Acute on chronic systolic CHF POA Chronic systolic CHF, no acute exacerbation Other (please specify) Thank you, Aubree CRAWFORD,RN Clinical Documentation Reference Library Assistant After business hours you may contact Ebony Anne at [phone] (Weekdays until 10 PM and weekends 8 [...] currently. Priscilla Aranda RDN, LD Dietitian's Office [phone] * John Note - Carlita Lazaro RRT [...] - Brief Progress Note PERMANENT 11/27/2023 04:43 [facility] CCU ENOC ARMANDOElizabet Date of [...] 37. Patient placed onbipap and Norma Geiger WET SILK HANGER notified. Patient was then transferred to MICU [...] came to room and replaced on bipap. WET SILK HANGER came to see patient and request patient [...] that patient has arrived from [facility]. Attempt to let dr Pereira aware of arrival from [facility] no answer will leave message. documented in this [id number] Hospital course Narrative* Ellie Aguilar CNP - 12/01/2023 11:03 AM EST [facility] DISCHARGE SUMMARY -- [facility] Enoc Armando Admitted: 11/27/2023 Discharge Date: 12/01/23 PCP Handoff Recommended Outpatient Testing None Results Pending At Discharge None Clinical Summary Enoc Armando is a 77 y.o. male patient of Ryley Jeter MD with history of HTN, HLD, DM Type I, CKD, COPD, chronic hypoxemic respiratory failure who presented to [facility] with respiratory distress . Severe Sepsis [...] Ryley Jeter MD [address] [facility] [id number] Follow up Please call to schedule a [...] on 12/01/23, 11:10 AM documented in this [id number] History of Present illness Narrative* Jody Hammonds, SINTERING PRESS OPERATOR - 12/01/2023 10:20 AM EST Physical Therapy [...] Static: Supervision, without UE support, with device Scheduler Maintenance - Standing Static: wheeled walker Loss of Balance- Standing Static: (none) Standing Balance - Dynamic: Stand by assist Scheduler Maintenance - Standing Dynamic: wheeled walker Loss of Balance- Standing Dynamic: (none) Bed Mobility Supine to Sit: Contact guard assist, Head of bed elevated Scheduler Maintenance: (none) Skilled Intervention Provided: verbal cues, monitoring patient response with activity, environmental setup/modification, facilitation, provided step by step instructions For: efficient movement, safety during functional tasks, sequencing of movement Resulting in: improved activity tolerance, improved functional independence, improved performance, improved safety, increased upright tolerance for functional tasks Transfers Sit to Stand: Stand by assist Scheduler Maintenance: BUE, wheeled walker Additional Transfer Trial 2: Yes Sit to Stand Trial 2: Stand by assist Scheduler Maintenance Trial 2: wheeled walker, BUE Skilled Intervention [...] O2;) Prior Level of Function Level of Isabella - Transfers/Ambulation/Mobility: Independent with functional transfers, Independent with household ambulation, Independent with community ambulation (no AD for in home ambulation, intermitant use of cane in community for longer distances) Level of Isabella - ADLs: Independent Level of Isabella - Homemaking: ( takes care of all [...] Enoc Armando Admit Date: 11/27/2023 MR #: [id number] : 1945 Current location: [facility] Physicians: Ryley Jeter MD (Family); Britton [...] NST in a week, spoke with his stream control officer Dr. Small, who will arrange to have [...] CHF, hypertension, hyperlipidemia, emphysema who presented to [facility] emergency department with a complaint [...] T CO2 17. He was transferred to [facility] for further evaluation and treatment. At [...] platelet count 220,000 Allergies: Allergies Allergen Reactions Erdzycm-Edf-Jda Reductase Inhibitors Muscle cramps Home Medications: Outpatient [...] Enoc Armando Admit Date: 1261205 MR #: [id number] : 1945 Physicians: Ryley Jeter MD (Family); Ger Bansal DO (Referring) Assessment: Patient with 1. Respiratory failure 2. Suspicion for pneumonia 3. Possible congestive heart failure 4. Non-ST elevation [place]. 5. History of COVID-19 infection. Plan: Continue patient on current therapy Continue patient on IV azithromycin Continue on ceftriaxone From [facility] 5 weeks ago patient was status post [...] the patient is stable. Previous x-ray at [facility] had shown congestive changes and edema on [...] 97.9 F (36.6 C) SpO2: 94% Allergies: Uhzydfi-rse-csp reductase inhibitors Medications Reviewed. Current Facility-Administered Medications: [...] 20 mg, 20 mg, Intravenous, Q12H [facility], Iraida Alvarado CNP, 20 mg at [...] excoriations Musculoskeletal: No joint swelling, non tender ACCOUNTS MANAGER: Awake, and Ox3 Wound: No Osborne Catheter: [...] Bilateral infrahilar patchy opacities, concerning for pneumonia. [employer] Workstation ID: [id number] Laboratory and Additional Data [...] Aguilar CNP - 11/30/2023 9:26 AM EST [facility] PROGRESS NOTE Assessment and Plan Enoc Armando is a 77 y.o. male patient of Ryley Jeter MD with history of HTN, HLD, DM Type I, CKD, COPD, chronic hypoxemic respiratory failure who presented to [facility] with respiratory distress . Severe Sepsis [...] Enoc Armando Admit Date: 1261205 MR #: [id number] : 1945 Physicians: Ryley Jeter MD (Family); Ger Bansal DO (Referring) Assessment: Patient with 1. Respiratory failure 2. Suspicion for pneumonia 3. Possible congestive heart failure 4. Non-ST elevation [place]. 5. History of COVID-19 infection. Plan: Continue patient on current therapy Continue patient on IV azithromycin Continue on ceftriaxone From [facility] 5 weeks ago patient was status post [...] the patient is stable. Previous x-ray at [facility] had shown congestive changes and edema on [...] 97.7 F (36.5 C) SpO2: 97% Allergies: Xmaywli-una-isq reductase inhibitors Medications Reviewed. Current Facility-Administered Medications: [...] excoriations Musculoskeletal: No joint swelling, non tender ACCOUNTS MANAGER: Awake, and Ox3 Wound: No Osborne Catheter: [...] Enoc Armando Admit Date: 11/27/2023 MR #: [id number] : 1945 Current location: [facility] Physicians: Ryley Jeter MD (Family); Britton [...] CHF, hypertension, hyperlipidemia, emphysema who presented to [facility] emergency department with a complaint [...] T CO2 17. He was transferred to [facility] for further evaluation and treatment. At [...] platelet count 220,000 Allergies: Allergies Allergen Reactions Nclxdsq-Pmy-Fre Reductase Inhibitors Muscle cramps Home Medications: Outpatient [...] you. Mary Vargas MD * Alfred Pabon, CYCLE TOURING GUIDE - 11/29/2023 3:06 PM EST Patient Name: Enoc Armando Admit Date: 1261205 MR #: [id number] : 1945 Physicians: Ryley Jeter MD (Family); Ger Bansal DO (Referring) Assessment: Patient with 1. Respiratory failure 2. Suspicion for pneumonia 3. Possible congestive heart failure 4. Non-ST elevation [place]. 5. History of COVID-19 infection. Plan: Continue patient on current therapy Continue patient on IV azithromycin Continue on ceftriaxone From [facility] 5 weeks ago patient was status post [...] the patient is stable. Previous x-ray at [facility] had shown congestive changes and edema on [...] 97.9 F (36.6 C) SpO2: 97% Allergies: Ymvliye-rki-qav reductase inhibitors Medications Reviewed. Current Facility-Administered Medications: acetaminophen (TYLENOL) tablet 650 mg, 650 mg, Oral, Q4H PRN, Nroma Geiger CNP amLODIPine (NORVASC) tablet 10 mg, [...] 20 mg, 20 mg, Intravenous, Q12H [facility], Iraida Alvarado CNP, 20 mg at [...] excoriations Musculoskeletal: No joint swelling, non tender ACCOUNTS MANAGER: Awake, and Ox3 Wound: No Osborne Catheter: None IV Access: yes I reviewed Medications. I reviewed Labs. XR Chest 1 View Final Result Bilateral infrahilar patchy opacities, concerning for pneumonia. [employer]Ox/[employer] Workstation ID: [id number] Echocardiogram complete (Results Pending) [...] Benitez MD - 11/29/2023 1:37 PM EST [facility] PROGRESS NOTE Assessment and Plan Enoc Armando is a 77 y.o. male patient of Ryley Jeter MD with history of HTN, HLD, DM Type I, CKD, COPD, chronic hypoxemic respiratory failure who presented to [facility] with respiratory distress . Severe Sepsis [...] Enoc Armando Admit Date: 11/27/2023 MR #: [id number] : 1945 Current location: [facility] Physicians: Ryley Jeter MD (Family); Britton [...] CHF, hypertension, hyperlipidemia, emphysema who presented to [facility] emergency department with a complaint [...] T CO2 17. He was transferred to [facility] for further evaluation and treatment. At [...] platelet count 220,000 Allergies: Allergies Allergen Reactions Setwtxz-Jqw-Xta Reductase Inhibitors Muscle cramps Home Medications: Outpatient [...] (PF) 5 mL Intravenous Q8H [facility] acetaminophen, dextrose, heparin, ipratropium-albuteroL, [COMPLETED] Insert [...] General Cardiology Inpatient Follow-up Heart & Vascular [facility] 11/28/2023 Iraida Alvarado CNP [facility] Patient: Enoc Armando Date of : [...] - EKG showed SR suggest previous anterior [place], minor ST depression laterally similar to 10/11/2023 [...] is orient x 3. Telemetry: SR Allergies: Lbxkkuh-lge-til reductase inhibitors Review of Systems: The following [...] in Direct Patient Care: 15 Narrative: This grain farmer visited the pt., Enoc, while rounding. Introduced [...] of his children and grandchildren. 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 This grain farmer helped the pt explore their feelings about their hospitalization and identify sources of support. This grain farmer provided information about Pastoral Care services and how to contact a grain farmer. Pastoral Care team will remain available to support patient and family PRN. 11/28/23 1116 Visit Background Visit With Patient Visit By Staff Licensed Plumber Visit Progression Introduction Visit Requested By Licensed Plumber Initiated Visit Source Licensed Plumber Initiated Visit Type Inpatient;Rounding Visit Circumstances and Events Routine Visit Visit Length (minutes) 15 Patient's Response to Pastoral Care Appeared to be well-engaged;Expressed Gratitude for Visit Visit Planning PRN;Pt aware to contact Licensed Plumber as needed Spiritual Assessment Assessed during this visit Anabaptism Assessment Not assessed during this visit Family [...] Facilitated Interventions Active Listening;Explained Role of the Licensed Plumber;Explored thoughts/feelings associated with current hospitalization;Relationships Spiritual/Emotional Outcomes Appreciative;Gratitude Spiritual Plan of Care Continue Healing Process;Receive Spiritual Support Signature: Kalani Claros MDiv Staff Licensed Plumber [facility] 24hr On-Call /Adriana On-Call Licensed Plumber She/Her/Hers * Cintia Benitez MD - 11/28/2023 10:49 AM EST [facility] PROGRESS NOTE Assessment and Plan Enoc Armando is a 77 y.o. male patient of Ryley Jeter MD with history of HTN, HLD, DM Type I, CKD, COPD, chronic hypoxemic respiratory failure who presented to [facility] with respiratory distress . Severe Sepsis [...] Enoc Armando Admit Date: 1261205 MR #: [id number] : 1945 Physicians: Ryley Jeter MD (Family); Ger Bansal DO (Referring) Assessment: Patient with 1. Respiratory failure 2. Suspicion for pneumonia 3. Possible congestive heart failure 4. Non-ST elevation [place]. 5. History of COVID-19 infection. Plan: Continue patient on current therapy Continue patient on IV azithromycin Continue on ceftriaxone From [facility] 5 weeks ago patient was status post [...] the patient is stable. Previous x-ray at [facility] had shown congestive changes and edema on [...] 97.7 F (36.5 C) SpO2: 97% Allergies: Bzxaswj-egk-oxi reductase inhibitors Medications Reviewed. Current Facility-Administered Medications: [...] excoriations Musculoskeletal: No joint swelling, non tender ACCOUNTS MANAGER: Awake, and Ox3 Wound: No Osborne Catheter: [...] Enoc Armando Date of : 1945 Site: [facility] Provider: Prashant Cesar MD ASSESSMENT/PLAN: Enoc Armando 77 y.o. male transferred last night for resp distress, NSTEMI, hypergllycemia from [facility] Three weeks ago testing positive for Covid and then diagnosed with pneumonia. He has been treated as an outpatient with oral antibiotics. He has been experiencing intermittent midsternal chest pain for the past [address] [facility], he was placed on NIPPV [...] Azithromycin/Ceftriaxone Cardiovascular: Troponin 2361 BNP 16,730 Prior [place] NSTEMI Cardiology consulted Heparin gtt Neuro/Muscular: Alert [...] mL 5 mL Intravenous Q8H [facility] Norma Geiger CNP 5 mL at [...] Enoc Armando Admit Date: 11/27/2023 MR #: [id number] : 1945 Current location: [facility] Physicians: Ryley Jeter MD (Family); Britton [...] CHF, hypertension, hyperlipidemia, emphysema who presented to [facility] emergency department with a complaint [...] T CO2 17. He was transferred to [facility] for further evaluation and treatment. At [...] platelet count 220,000 Allergies: Allergies Allergen Reactions Kvpdqkh-Zhx-Asa Reductase Inhibitors Muscle cramps Home Medications: Outpatient [...] Enoc Armando Date of : 1945 Site: [facility] Provider: Prashant Cesar MD ASSESSMENT/PLAN: Enoc Armando 77 y.o. male transferred last night for resp distress, NSTEMI, hypergllycemia from [facility] Three weeks ago testing positive for Covid and then diagnosed with pneumonia. He has been treated as an outpatient with oral antibiotics. He has been experiencing intermittent midsternal chest pain for the past [address] [facility], he was placed on NIPPV [...] 30% Cardiovascular: Troponin 2361 BNP 16,730 Prior [place] NSTEMI Cardiology consulted Heparin gtt Neuro/Muscular: Alert [...] mL 5 mL Intravenous Q8H [facility] Norma Geiger CNP 5 mL at 11/27/23 0515 And sodium chloride 0.9% (NS) 0-150 mL/hr Intravenous PRN Norma Geiger CNP [x] Medications reviewed. [x] Labs reviewed. Pertinent findings noted: [x] Radiology reviewed. Pertinent findings noted: [] Pathology reviewed. Pertinent findings noted: Family Update/ Code Status: Full code Laboratory and Additional Data Reviewed: Reviewed 11/27/23 8:35 AM: Laboratory and Microbiology documented in this [id number] Consult note* Domenica Torre RN - 11/30/2023 [...] Balance - Static: Supervision, without UE support Scheduler Maintenance - Standing Static: (no device) Standing Balance - Dynamic: Stand by assist, Contact guard assist (without device; sba/ supervisionwith rollator) Scheduler Maintenance - Standing Dynamic: (trialed with and without rollator) Loss of Balance- Standing Dynamic: (left path deviation unsteadiness without device; no LOB with use of rollator and gait steadiness much improved.) Bed Mobility Rolling: Modified independent, Head of bed flat Supine to Sit: Modified independent, Head of bed flat Sit to Supine: (NT: pt up in chair post PT session) Scheduler Maintenance: (none) Transfers Sit to Stand: Stand by assist Bed to Chair: Stand by assist, Contact guard assist (no device) Stand Pivot Transfers: Stand by assist, Contact guard assist (no device) Scheduler Maintenance: (no AD) Additional Transfer Trial 2: Yes Sit to Stand Trial 2: Stand by assist (from chair with karin ue support) Scheduler Maintenance Trial 2: BUE Additional Transfer Trial 3: Yes Sit to Stand Trial 3: Stand by assist (from locked rollator seat) Scheduler Maintenance Trial 3: (locked rollator handles) Gait/Locomotion Gait [...] O2;) Prior Level of Function Level of Isabella - Transfers/Ambulation/Mobility: Independent with functional transfers, Independent with household ambulation, Independent with community ambulation (no AD for in home ambulation, intermitant use of cane in community for longer distances) Level of Isabella - ADLs: Independent Level of Isabella - Homemaking: ( takes care of all [...] at discharge. Pt declined PT services at [place]. Pt up in chair post PT session. [...] furosemide 20 mg Intravenous Q12H [facility] insulin glargine 16 Units Subcutaneous Nightly lispro insulin 0-15 Units Subcutaneous at bedtime insulin lispro 0-30 Units Subcutaneous Daily before lunch insulin lispro 0-30 Units Subcutaneous Before dinner [START ON 11/30/2023] insulin lispro 0-30 Units Subcutaneous QAM AC metoprolol succinate 25 mg Oral Daily sodium chloride (PF) 5 mL Intravenous Q8H [facility] Continuous Infusions: heparin infusion (weight based dosing) 16 Units/kg/hr (11/29/23 0616) heparin sodium chloride 0.9 % Estimated Energy Needs Total Energy Estimated Needs: 9762-8407 kcal/d Method for Estimating Needs: 25-30 kcal/kg current wt Total Protein Estimated Needs: 65 g/d Method for Estimating Needs: 1 g/kg current wt Grazyna Obregon RDN, LD, CLC Office * Chaya Mayfield RN - 11/29/2023 9:30 AM ESTAssociated Order(s): IP CONSULT TO STEAM TRAP WORKER Met with pt for diabetes education. States [...] 4:07 PM ESTAssociated Order(s): IP CONSULT TO URGENT CARE PHYSICIAN ASSISTANT See earlier consult * Gaudencio Pabon MD - 11/27/2023 2:50 PM EST Patient Name: Enoc Armando MR #: [id number] : 1945 Physicians: Ryley Jeter MD (Family); [...] COVID-19 infection, and then was admitted in [facility]. At that time he was having respiratory failure, and also was having bilateral infiltrates and was found with echocardiogram with ejection fraction of 35%. At [facility], patient was treated with BiPAP, ceftriaxone, azithromycin, [...] failure, [place] [address], And troponin of 9000. Patient also had [...] Information: I have reviewed the patient's allergies. Imwcnmi-iex-qoh reductase inhibitors Review of Systems: Review of [...] Bilateral infrahilar patchy opacities, concerning for pneumonia. [employer] Workstation ID: [id number] Echocardiogram complete (Results Pending) [...] Possible congestive heart failure 4. Non-ST elevation [place]. 5. History of COVID-19 infection. Plan. Continue patient on current therapy Patient currently on IV azithromycin Patient [facility] [facility] patient was status post [...] the patient is stable. Previous x-ray at [facility] had shown congestive changes and edema on [...] Enoc Armando Admit Date: 11/27/2023 MR #: [id number] : 1945 Current location: [facility] Physicians: Ryley Jeter MD (Family); Britton [...] CHF, hypertension, hyperlipidemia, emphysema who presented to [facility] emergency department with a complaint [...] T CO2 17. He was transferred to [facility] for further evaluation and treatment. At [...] platelet count 220,000 Allergies: Allergies Allergen Reactions Ijjkybo-Nkj-Mfu Reductase Inhibitors Muscle cramps Home Medications: Outpatient [...] reviewed showed sinus rhythm suggest previous anterior [place] minor ST depression laterally similar to 10/11/2023 [...] testing positive initially he was hospitalized at [facility] on BiPAP. Communication is a bit difficult [...] Information: I have reviewed the patient's allergies. Bgavrzd-ika-zti reductase inhibitors Home Medications: Outpatient Medications as [...] Enoc Armando Admit Date: [id number] MR #: [id number] : 1945 Physicians: Ryley Jeter MD (Family); Ger Bansal DO (Referring) Julia Parker MD documented in this [id number] History and physical note* Norma Geiger CNP - 11/27/2023 3:12 AM EST [facility] HISTORY AND PHYSICAL -- [facility] Patient Name: Enoc Armando : 1945 MR #: [id number] Admit Date: 11/27/2023 Physicians: Ryley Jeter MD (Family); Ger Bansal DO (Referring) Enoc Armando is a 77 y.o. male patient of Ryley Jeter MD with history of HTN, HLD, DM Type I, CKD, COPD, chronic hypoxemic respiratory failure who presented to [facility] with respiratory distress . Severe Sepsis [...] DKA protocol. Consult endocrinology, DM education, and emery grinder Essential Hypertension Dyslipidemia Continue amlodipine, metoprolol, ezetimibe [...] of Ryley Jeter MD, who presented to [facility] with respiratory distress. The patient states [...] discomfort with associated diaphoresis. On arrival to [facility], he was placed on NIPPV [...] Information I have reviewed the patient's allergies. Sgnetox-tjd-mpr reductase inhibitors Home Medications Home medications were [...] Benitez MD - 11/27/2023 3:27 PM EST [facility] NOTE ADDENDUM I [...] chronic hypoxemic respiratory failure who presented to [facility] with respiratory distress . Physical Examination [...] COVID -Appreciate ID input documented in this [id number] Emergency department Note* Ger Bansal DO - [...] to experience difficulty breathing for 1 hr captain room service. EMS reports an O2 level in the [...] ask the patient if he had a stream control officer and he said yes. Patient sees Dr. Small at [place] and is scheduled to have a stress test next week. Patient has denied any chest pain his entire time here. I did speak to the stream control officer on-call Dr. Parker and she agreed with a dose of IV Lasix and starting the patient on heparin which will be done. Patient is improved at present but we will continue to monitor the patient until a bed becomes available at [place]. The patient has been accepted by the [...] History Past Medical History: Diagnosis Date Diabetes ([facility]) History reviewed. No pertinent surgical history. [...] performed using a different testing methodology at [facility] than at other [facility]. Direct result comparisons should only be made [...] is performed using different testing methodology at [facility] than at other [facility]. Direct result comparisons should only be made [...] performed using a different testing methodology at [facility] than at other [facility]. Direct result comparisons should only be made [...] Ghassan Tovar 11/26/2023 10:02 PM Dictation workstation: [id number] Medical Decision Making Patient will be transferred in stable condition to [facility] in [place]. Procedure Critical Care Performed by: Ger Bansal [...] in this [facility] Work Phone: 1(599) 980-546901-26-2024 Physician Emergency department Note* Ger Bansal DO [...] to experience difficulty breathing for 1 hr captain room service. EMS reports an O2 level in the [...] ask the patient if he had a stream control officer and he said yes. Patient sees Dr. Small at [place] and is scheduled to have a stress test next week. Patient has denied any chest pain his entire time here. I did speak to the stream control officer on-call Dr. Parker and she agreed with a dose of IV Lasix and starting the patient on heparin which will be done. Patient is improved at present but we will continue to monitor the patient until a bed becomes available at [place]. The patient has been accepted by the [...] performed using a different testing methodology at [facility] than at other [facility]. Direct result comparisons should only be made [...] is performed using different testing methodology at [facility] than at other [facility]. Direct result comparisons should only be made [...] performed using a different testing methodology at [facility] than at other [facility]. Direct result comparisons should only be made [...] Ghassan Tovar 11/26/2023 10:02 PM Dictation workstation: [id number] Medical Decision Making Patient will be transferred in stable condition to [facility]. Procedure Critical Care Performed by: Ger Bansal [...] another facility Ger Bansal DO 11/27/23 0119 [facility] Work Phone: 1(364) 575-494701-02-2024 History of Present illness Narrative* Mary Vargas MD - 11/02/2023 4:50 PM EST Patient called and reported that he needs Humalog Rx changed due to formulary change. Rx mailed forAdmelog Solostar 15 ml, 11 refills. CD documented in this [id number] History of Present illness Narrative* Woo Small MD - 10/21/2023 9:00 AM EST General Cardiology New Patient Clinic Consult [facility], Heart & Vascular 10/21/2023 Woo Small MD [address] [place] [address] Medical Office [facility] [id number] Patient: Enoc Armando Date of : [...] 6 months (around 04/21/2024). Woo Small MD, [facility] Non-Invasive Cardiology [facility] P:[phone] F:[phone] History of Present Illness: Enoc Armando is a 77 y.o. man with a past medical history of insulin-dependent diabetes for 30 years, history of tobacco use, recent COVID infection with systolic dysfunction ejection fraction ranging from 35 to 45% who presents today to establish care. Patient states that he was critically ill andhospitalized at [facility], on BiPAP. Prior to hospitalization patient denied [...] 25.50 Types: Cigarettes Smokeless Tobacco Never Allergies: Raxncat-ohg-wdg reductase inhibitors All of the information has [...] appropriate conversation Cardiovascular Studies: Echocardiogram reviewed from [facility], 10/11/2023 moderately decreased ejection fraction estimated [...] Total Cholesterol: 156 mg/dL documented in this [id number] Instructions* Patient Instructions* Luisa Easley RN - 10/21/2023 8:54 AM EST How to Contact your Care Team: Provider: Dr. Woo Small MD Clinic Nurse: Luisa Easley, RN REFILLS: When in need for refills please call your care team or the office at [phone]. Please include medication name, pharmacy name, and [...] questions please contact your care team or [phone]. documented in this [id number] Nurse Note* Moody Gorman RN - 10/13/2023 7:25 PM EST Pt IVs removed intact, home O2 has just been delivered and family given instruction by [employer]. Pt leaving by wheelchair to discharge doors, daughter driving. [facility]2023 Nurse Note* Moody Gorman RN - 10/13/2023 [...] - 10/11/2023 10:00 AM EST , Alice ([phone]), called and requesting and update. Update provided. [...] in this [facility] Work Phone: 1([phone]) 914-409212-13-2023 Nurse Note* Geni Lynne RN - 10/13/2023 3:56 PM EST Discharge instructions reviewed with pt. Printed and verbal education given on covid, chf, and homeoxygen use/safety. Pt verbalized understanding of all instructions. Walker rx written by dr rivera. Awaiting home oxygen set up. [facility]2023 Hospital Discharge instructions* Discharge Instr - Other [...] or approved for treating a specific patient. [employer] and its affiliatesdisclaim any warranty or liability relating to this information or the use thereof. The use of thisinformation is governed by the Terms of Use, available at https://www.[employer]/en/know/iapctcqf-ichqdofqkgygk-ehtdj Copyright 2022 [employer] and its affiliates and/or licensors. All rights [...] or approved for treating a specific patient. [employer] and its affiliatesdisclaim any warranty or liability relating to this information or the use thereof. The use of thisinformation is governed by the Terms of Use, available at https://www.[employer].com/en/know/iahtuaoo-qgdjykupjzetf-ozjsb Copyright 2022 [employer] and its affiliates and/or licensors. All rights [...] Do not take any other prescription drugs, rusa-zlf-amsxxzy (OTC) drugs, herbals, or diet aids without [...] diet are needed? Ask your doctor or emery grinder what diet is best for you. The [...] or approved for treating a specific patient. [employer] and its affiliatesdisclaim any warranty or liability relating to this information or the use thereof. The use of thisinformation is governed by the Terms of Use, available at https://www.[employer].com/en/know/ywcwpkli-xddinnvnbzdam-ejqeo Copyright 2022 [employer] and its affiliates and/or licensors. All rights reserved. documented in this [facility] Work Phone: 1(926) 902-516812-13-2023 Miscellaneous Notes* Documentation Clarification Note - Vera Mari MD - 10/13/2023 3:06 PM EST PATIENT: ENOC ARMANDO : 1945 ADMIT DATE: 10/11/2023 1:08 AM DISCH DATE: RESPONDING PROVIDER #: [id number] PROVIDER RESPONSE TEXT: Sepsis with associated respiratory [...] hypoxia], hypertensive emergency, hyperglycemia, and elevated troponin. Black Top Machine Operator consult documents Acute hypoxemic respiratory failure. [...] in this [facility] Work Phone: 1(643) 191-166012-13-2023 Note* Documentation Clarification Note - Vera Mari MD - 10/13/2023 3:06 PM EST PATIENT: ENOC ARMANDO : 1945 ADMIT DATE: 10/11/2023 1:08 AM DISCH DATE: RESPONDING PROVIDER #: [id number] PROVIDER RESPONSE TEXT: Sepsis with associated respiratory [...] hypoxia], hypertensive emergency, hyperglycemia, and elevated troponin. Black Top Machine Operator consult documents Acute hypoxemic respiratory failure. [...] RIVERA MD 10/13/2023 3:05 PM [facility] Work Phone: 1([phone]) 122-511512-13-2023 History of Present illness Narrative* JENNIFER Almanza [...] Prior Function Per Pt/Caregiver Report Level of Isabella: Independent with ADLs and functional transfers, Independent [...] length Comments/Distance (ft) 1: 88ft Outcome Measures: [facility] Basic Mobility Turning from your back [...] Bathroom Equipment: None Prior Function: Level of Isabella: Independent with ADLs and functional transfers, Independent [...] Function: Gross Grasp: Functional Coordination: Functional Outcome Measures:[facility] Daily Activity Putting on and taking [...] 10/13/23 Expected End: 10/27/23 * Phylicia Reyes APRN-CYCLE TOURING GUIDE, DNP - 10/13/2023 10:18 AM EST Subjective Data: Patient examined and denies any chest pain/pressure/discomfort, palpitations, worsening SOB, dizziness, or lower extremity edema. He does not currently follow with a Rotary Helper. Overnight Events: None Objective Data: Last Recorded [...] result verified on 10/11/2023 0209 on specimen/case [id number] called with component [facility] for [...] 13-18 <7.5 7-12 <8.0 0- 6 7.5-8.5 [employer]. Diabetes Care 33(S1), Nov 2009. 02/12/2023 08:57 AM 7.7 % Final Comment: Diagnosis of Diabetes-Adults Non-Diabetic: < or = 5.6% Increased risk for developing diabetes: 5.7-6.4% Diagnostic of diabetes: > or = 6.5% . Monitoring of Diabetes Age (y) Therapeutic Goal (%) Adults: >18 <7.0 Pediatrics: 13-18 <7.5 7-12 <8.0 0- 6 7.5-8.5 [employer]. Diabetes Care 33(S1), Nov 2009. [...] rest and 2L with activity * Taylor aGmez RDN, NICOLE - 10/13/2023 9:00 AM EST [...] Assessment Information (1): baseline creat 1.6-1.9 per mechanical product engineer; A1C 7.4 09/27, 7.6 06/11l Nutrition Diagnosis [...] result verified on 10/11/2023 0209 on specimen/case [id number] called with component [facility] for [...] 13-18 <7.5 7-12 <8.0 0- 6 7.5-8.5 [employer]. Diabetes Care 33(S1), Nov 2009. 02/12/2023 08:57 AM 7.7 % Final Comment: Diagnosis of Diabetes-Adults Non-Diabetic: < or = 5.6% Increased risk for developing diabetes: 5.7-6.4% Diagnostic of diabetes: > or = 6.5% . Monitoring of Diabetes Age (y) Therapeutic Goal (%) Adults: >18 <7.0 Pediatrics: 13-18 <7.5 7-12 <8.0 0- 6 7.5-8.5 [employer]. Diabetes Care 33(S1), Nov 2009. [...] around 1.8,arthritis and smoking. Came to ED [facility] on 10/11/2023 complaining of shortness of [...] to discharge. If not possible, should have [facility] as an outpatient. - Due to [...] on 10/11/2023 6:18:47 PM Transthoracic Echo (TTE) [place] [address] [phone], TRANSTHORACIC ECHOCARDIOGRAM REPORT Patient Name: ENOC ARMANDO Reading Physician: [id number] Jose Enrique Molina MD Study Date: 10/11/2023 Ordering Provider: [id number] VERA RIVERA MRN/PID: [id number] Fellow: Nurse: Jana See RN Date of /Age: 2 1945 / 77 years 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 Gender: M Additional Staff: Height: 170.18 cm Admit Date: Weight: 71.67 kg Admission Status: Inpatient - Routine BSA: 1.83 m2 Department Location: [address]-ICU Blood Pressure: 141 /71 mmHg Study Type: TRANSTHORACIC ECHO (TTE) COMPLETE Diagnosis/ICD: Acute on chronic systolic (congestive) heart failure (CHF)-I50.23 CPT Codes: Echo Complete w Full Doppler-10044 Study Detail: The following Echo studies were [...] LA Area A2C: 16.2 cm2 LA Major [place] A4C: 5.3 cm LA Major [place] A2C: 5.0 cm LA Volume Index: 23.9 ml/m2 LA Vol A4C: 43.7 ml LA Vol A2C: 43.3 ml LV SYSTOLIC FUNCTION BY 2D PLANIMETRY (MOD): Normal Ranges: EF-A4C View: 45.6 % (>=55%) EF-A2C View: 40.9 % EF-Biplane: 44.2 % AORTIC VALVE: Normal Ranges: LVOT Diameter: 1.80 cm (1.8-2.4cm) RIGHT VENTRICLE: RV Basal 3.49 cm RV Mid 2.45 cm RV Major 7.8 cm [id number] Jose Enrique Molina MD Electronically signed on 10/11/2023 at 9:43:19 AM Final XR chest 1 view Narrative: Interpreted By: Kahlil Fagan, STUDY: XR CHEST 1 VIEW; 10/11/2023 1:30 am INDICATION: Signs/Symptoms:Cough. COMPARISON: Chest radiograph 11/04/2012 ACCESSION NUMBER(S): [id number] ORDERING CLINICIAN: AURY ROUSE FINDINGS: SUPPORT DEVICES: [...] Kahlil Fagan 10/11/2023 1:33 AM Dictation workstation: [id number] Physical Exam Constitutional: Appearance: Normal appearance. HENT: [...] on sliding scale insulin. A1c 7.4 appreciate marketing administrator input. Oxygen as tolerated, currently liters. PT, OT consult for generalized weakness. Vitamin D, zinc DVT prophylaxis on heparin. CODE STATUS full. Disposition in 24 to 48 hours. Total time spent 35 minutes. Vera Rivera MD * Consuelo Fischer RN - 10/11/2023 2:04 PM EST 10/11/23 0082 Discharge Planning Living Arrangements Spouse/significant other Support [...] with his at discharge to there [address] [place] [address]. He still drives and he ambulates with a cane. No further needs at this time. CT to follow. Consuelo Fischer BSN/RN-TCC documented in this [facility] Work Phone: [phone]) 320-127712-13-2023 Hospital course Narrative* Vera Mari MD - [...] Your Medications These medications were sent to [facility] [address] [address] metoprolol succinate XL 25 mg 24 hr tablet These medications were sent to [facility] [address] [place] [address] Hours: 8 AM to 5:30 Mon-Fri, 8 [...] up with home oxygen. Patientalso was sore marketing administrator discharged his dexamethasone and antibiotics as cultures seems to be negative. Clinically stable. Patient also had elevated troponin secondary due to above seen by cardiology, Dr. De Dios, started on metoprolol, aspirin initially which which can be changed to 81 mg daily. Jaundice and Zetia also were started. Patient also has seen Dr. Albert, mechanical product engineer for acute on chronic kidney disease secondary [...] Department Center 02/24/2024 1:45 PM Madie Albert, SENIOR SALES OPERATIONS ANALYST-CYCLE TOURING GUIDE, [facility] [id number] [facility] Dr. Albert, nephrology in [address] De Dios, cardiology in 2 to 4 weeks. Total discharge time 40 minutes. Vera Rivera MD documented in this [facility] Work Phone: 1([phone]) 842-769512-13-2023 Nurse Note* Moody Gorman RN - 10/13/2023 12:27 PM EST Pt is AAO. He is using his call light today when he wants to use the bathroom. He has had loose stools, but less frequent. [facility] Work Phone: [phone]) 469-857012-12-2023 Nurse Note* Moody Gorman RN - 10/12/2023 5:25 PM EST Pt is alert to situation at this time and able to explain his diagnosis, but still impulsive when moving and unsteady. [facility] Work Phone: [phone]) 556-413612-12-2023 Nurse Note* Moody Gorman RN - 10/12/2023 4:42 PM EST Pt continues to try and leave the bed and chair without his call light. When asked what he needs orwhere he wants to go, pt is unable to articulate his motivation except the general desire to move around. Repeated re-education is not working. [facility] Work Phone: [phone]) 110-742912-12-2023 Nurse Note* Moody Gorman RN - 10/12/2023 3:45 PM EST Answered chair alarm. Pt is becoming increasingly confused and restless in general. He is aware of himself and other people, but is becoming impulsive in getting out of bed or his chair. Pt ambulatedto the bathroom, O2 increased to 5L for movement per RT. Pt assisted back to bed, bed alarm activated. [facility] Work Phone: [phone]) 376-803512-12-2023 Nurse Note* Moody Gorman RN - 10/12/2023 8:00 AM EST Pt is AAO, uses his call light appropriately. Pt currently on RA. Pt c/o weakness in his legs, but is able to sit up at the edge of the bed and walk with a walker to lean on for stability. [facility] Work Phone: [phone]) 179-694912-12-2023 Plan of care note* Care Plan - [...] to address these barriers include repeated re-orientation. [facility] Work Phone: 1(121) 335-941912-12-2023 Plan of care note* Care Plan - Jody Ball RN - 10/12/2023 5:59 AM EST The clinical goals for the shift include Blood sugar will return to normal limits by the end of theshift Over the shift, Pt tolerated BIPAP well. No signs of respiratory distress. [facility]12-11-2023 Consult note* Tyrone Zimmerman MD - 10/11/2023 [...] around 1.8,arthritis and smoking. Came to ED [facility] on 10/11/2023 complaining of shortness of [...] result verified on 10/11/2023 0209 on specimen/case [id number] called with component [facility] for [...] 13-18 <7.5 7-12 <8.0 0- 6 7.5-8.5 [employer]. Diabetes Care 33(S1), Nov 2009. 02/12/2023 08:57 AM 7.7 (A) % Final Comment: Diagnosis of Diabetes-Adults Non-Diabetic: < or = 5.6% Increased risk for developing diabetes: 5.7-6.4% Diagnostic of diabetes: > or = 6.5% . Monitoring of Diabetes Age (y) Therapeutic Goal (%) Adults: >18 <7.0 Pediatrics: 13-18 <7.5 7-12 <8.0 0- 6 7.5-8.5 [employer]. Diabetes Care 33(S1), Nov 2009. [...] Family history unknown: Yes Allergies: Prednisone and Spjtsmb-tjz-gmp reductase inhibitors Inpatient Medications: Scheduled medications Medication [...] around 1.8,arthritis and smoking. Came to ED [facility] on 10/11/2023 complaining of shortness of [...] to discharge. If no t possible, have [facility] as an outpatient. - Due to [...] Code Status: Full Code Tyrone Zimmerman MD [facility] Work Phone: 1(627) 278-580212-11-2023 Consult note* Tyrone Zimmerman MD - 10/11/2023 [...] around 1.8,arthritis and smoking. Came to ED [facility] on 10/11/2023 complaining of shortness of [...] result verified on 10/11/2023 0209 on specimen/case [id number] called with component [facility] for [...] 13-18 <7.5 7-12 <8.0 0- 6 7.5-8.5 [employer]. Diabetes Care 33(S1), Nov 2009. 02/12/2023 08:57 AM 7.7 (A) % Final Comment: Diagnosis of Diabetes-Adults Non-Diabetic: < or = 5.6% Increased risk for developing diabetes: 5.7-6.4% Diagnostic of diabetes: > or = 6.5% . Monitoring of Diabetes Age (y) Therapeutic Goal (%) Adults: >18 <7.0 Pediatrics: 13-18 <7.5 7-12 <8.0 0- 6 7.5-8.5 [employer]. Diabetes Care 33(S1), Nov 2009. [...] has a past medical history of Diabetes ([facility]). Past Surgical History: He has no past surgical history on file. Social History: He reports that he has been smoking cigarettes. He has never used smokeless tobacco. He reports that he does not drink alcohol and does not use drugs. Family History: Family History Family history unknown: Yes Allergies: Prednisone and Pdulfza-uca-uhm reductase inhibitors Inpatient Medications: Scheduled medications Medication [...] around 1.8,arthritis and smoking. Came to ED [facility] on 10/11/2023 complaining of shortness of [...] to discharge. If no t possible, have [facility] as an outpatient. - Due to [...] 12:13 PM ESTAssociated Order(s): IP CONSULT TO URGENT CARE PHYSICIAN ASSISTANT Reason For Consult Acute respiratory failure History [...] has a past medical history of Diabetes ([facility]). Surgical History He has no past surgical history on file. Social History He reports that he has been smoking cigarettes. He has never used smokeless tobacco. He reports that he does not drink alcohol and does not use drugs. Family History Family History Family history unknown: Yes Allergies Prednisone and Twvspun-qde-qwv reductase inhibitors Review of Systems A full [...] in this [facility] Work Phone: 1(516) 322-171012-11-2023 Consult note* Ayanna Albert DO - 10/11/2023 12:13 PM ESTAssociated Order(s): IP CONSULT TO URGENT CARE PHYSICIAN ASSISTANT Reason For Consult Acute respiratory failure History [...] has a past medical history of Diabetes ([facility]). Surgical History He has no past surgical history on file. Social History He reports that he has been smoking cigarettes. He has never used smokeless tobacco. He reports that he does not drink alcohol and does not use drugs. Family History Family History Family history unknown: Yes Allergies Prednisone and Xiezquh-dmt-qkh reductase inhibitors Review of Systems A full [...] Problem: COVID-19 Ayanna Albert DO [facility] Work Phone: [phone]) 162-888112-11-2023 Plan of care note* Care Plan - Vera Mari MD - 10/11/2023 11:49 AM EST Patient's reviewed. Currently on 5 L of oxygen by nasal cannula, sitting in bed. wants him to be full code with DNI. Continue with current management. [facility] Work Phone: [phone]) 141-794112-11-2023 Nurse Note* Geni Wall RN - 10/11/2023 10:00 AM EST , Alice ([phone]), called and requesting and update. Update provided. She is Enoc's POA and requests in the event of cardiac he receive CPR and life sustaining medications. She is unsure if she wants him intubated and wants more time to think about it. She reported she will be visiting Enoc today around 11am. [facility]12-11-2023 Nurse Note* Zoila Mota RN - [...] Patient currently sleeping, HR 112, RR 24. [facility] Work Phone: [phone] 302-800512-11-2023 History and physical note* Praful Pineda MD [...] and then admitted to the [facility] for further investigation and management. Patient [...] History Past Medical History: Diagnosis Date Diabetes ([facility]) Pertinent medical history also documented in [...] Family history unknown: Yes Allergies Prednisone and Oewdakl-jbb-bbp reductase inhibitors Medications Prior to Admission Medication [...] Straw, Yellow Appearance, Urine Clear Clear Specific Jordan, Urine 1.014 1.005 - 1.035 pH, Urine [...] Signs/Symptoms:Cough. COMPARISON: Chest radiograph 11/04/2012 ACCESSION NUMBER(S): [id number] ORDERING CLINICIAN: AURY ROUSE FINDINGS: SUPPORT DEVICES: [...] Kahlil Fagan 10/11/2023 1:33 AM Dictation workstation: [id number] Assessment/Plan 77-year-old male, smoker, with a past [...] are not fully corrected) Praful Pineda MD [facility] Work Phone: [phone] 369-206712-11-2023 History and physical note* Praful Pineda MD [...] Family history unknown: Yes Allergies Prednisone and Pobkgpv-vwo-mco reductase inhibitors Medications Prior to Admission Medication [...] Straw, Yellow Appearance, Urine Clear Clear Specific Jordan, Urine 1.014 1.005 - 1.035 pH, Urine [...] Signs/Symptoms:Cough. COMPARISON: Chest radiograph 11/04/2012 ACCESSION NUMBER(S): [id number] ORDERING CLINICIAN: AURY ROUSE FINDINGS: SUPPORT DEVICES: [...] Kahlil Fagan 10/11/2023 1:33 AM Dictation workstation: [id number] Assessment/Plan 77-year-old male, smoker, with a past [...] in this [facility] Work Phone: 1(885) 453-608012-11-2023 Emergency department Note* Aury Rouse, DO - [...] ED and establish an IV.Patient admits to 46-zbsg-ibnl history of cigarette use and currently smokes 1 pack/day. Activity makes his symptoms worse rest helps to some extent. History provided by: EMS personnel and patient audio visual equipment rental clerk used: No Physical Exam Vitals and nursing note reviewed. Constitutional: General: He is awake. He is in acute distress. Appearance: Normal appearance. He is overweight. He is ill-appearing. HENT: Head: Normocephalic and atraumatic. Right Ear: External ear normal. Decreased hearing noted. Left Ear: External ear normal. Decreased hearing noted. Nose: Congestion and rhinorrhea present. Rhinorrhea is clear. Mouth/Throat: Lips: [place]. Mouth: Mucous membranes are moist. Pharynx: Oropharynx [...] specimens andhas been validated for use at [facility]. Negative results do not preclude COVID-19 [...] in ng/mL Fibrinogen Equivalent Units (FEU). Per wellness manager's instructions for use, a value of less than 500 ng/mL (FEU) may help to exclude DVT or PE in outpatients when the assay is used with a clinical pretest probability assessment.([facility] must utilize and document eCalc [...] performed using a different testing methodology at [facility] than at other [facility]. Direct result comparisons should only be made [...] performed using a different testing methodology at [facility] than at other [facility]. Direct result comparisons should only be made [...] is performed using different testing methodology at [facility] than at other [facility]. Direct result comparisons should only be made [...] Color, Urine Yellow Appearance, Urine Clear Specific [place], Urine 1.014 pH, Urine 5.0 Protein, Urine [...] and has been validated for use at [facility]. Negative results do not preclude Influenza A/B infections, and should not be used as the sole basis for diagnosis, treatment, or other management decisions. IfInfluenza A/B and RSV PCR results are negative, testing for Parainfluenza virus, Adenovirus and Metapneumovirus is routinely performed for [facility] pediatric oncology and intensive care inpatients, and isavailable on other patients by placing an add-on request. RSV PCR - Normal RSV PCR Not Detected Narrative: This assay is an FDA-cleared, in vitro diagnostic nucleic acid amplification test for the detectionof RSV from nasopharyngeal specimens, and has been validated for use at [facility]. Negative results do not preclude RSV infections, and should not be used as the sole basis for diagnosis, treatment, or other management decisions. If Influenza A/B and RSV PCR results are negative, testing for Parainfluenza virus, Adenovirus and Metapneumovirus is routinely performed for pediatric oncology and intensive care inpatients at [facility], and is available on [...] Abnormality Status --------- ------ Urinalysis with Reflex M...[[id number]] Abnormal Final result Extra Urine Orosco Tube[[id number]] Final result Please view results for these tests on the individual orders. TROPONIN SERIES- (INITIAL, 1 HR) Narrative: The following orders were created for panel order Troponin I Series, High Sensitivity (0, 1 HR). Procedure Abnormality Status --------- ------ Troponin I, High Sensiti...[[id number]] Abnormal Final result Troponin, High Sensitivi...[[id number]] Abnormal Final result Please view results for [...] Kahlil Fagan 10/11/2023 1:33 AM Dictation workstation: [id number] Critical Care Performed by: Aury Rouse DO [...] in this [facility] Work Phone: [phone]) 846-154512-11-2023 Emergency department Triage note* VANDANA Cosby - 10/11/2023 1:08 AM EST Pt brought in via EMS for fevers and chills. Pt reports being ill for the last 2-3 days. Pt states that he has been having fevers, chills, weakness, fatigue, headaches, body aches with some SOB. Pt was given a breathing treatment in route and states that it did help a little. [facility] Work Phone: [phone]) 855-554212-11-2023 Physician Emergency department Note* Aury Rouse DO [...] ED and establish an IV.Patient admits to 54-jrwx-pjez history of cigarette use and currently smokes 1 pack/day. Activity makes his symptoms worse rest helps to some extent. History provided by: EMS personnel and patient audio visual equipment rental clerk used: No Physical Exam Vitals and nursing note reviewed. Constitutional: General: He is awake. He is in acute distress. Appearance: Normal appearance. He is overweight. He is ill-appearing. HENT: Head: Normocephalic and atraumatic. Right Ear: External ear normal. Decreased hearing noted. Left Ear: External ear normal. Decreased hearing noted. Nose: Congestion and rhinorrhea present. Rhinorrhea is clear. Mouth/Throat: Lips: [place]. Mouth: Mucous membranes are moist. Pharynx: Oropharynx [...] specimens andhas been validated for use at [facility]. Negative results do not preclude COVID-19 [...] in ng/mL Fibrinogen Equivalent Units (FEU). Per wellness manager's instructions for use, a value of less than 500 ng/mL (FEU) may help to exclude DVT or PE in outpatients when the assay is used with a clinical pretest probability assessment.([facility] must utilize and document eCalc [...] performed using a different testing methodology at [facility] than at other [facility]. Direct result comparisons should only be made [...] performed using a different testing methodology at [facility] than at other [facility]. Direct result comparisons should only be made [...] is performed using different testing methodology at [facility] than at other [facility]. Direct result comparisons should only be made [...] Color, Urine Yellow Appearance, Urine Clear Specific [place], Urine 1.014 pH, Urine 5.0 Protein, Urine [...] and has been validated for use at [facility]. Negative results do not preclude Influenza A/B infections, and should not be used as the sole basis for diagnosis, treatment, or other management decisions. IfInfluenza A/B and RSV PCR results are negative, testing for Parainfluenza virus, Adenovirus and Metapneumovirus is routinely performed for [facility] pediatric oncology and intensive care inpatients, and isavailable on other patients by placing an add-on request. RSV PCR - Normal RSV PCR Not Detected Narrative: This assay is an FDA-cleared, in vitro diagnostic nucleic acid amplification test for the detectionof RSV from nasopharyngeal specimens, and has been validated for use at [facility]. Negative results do not preclude RSV infections, and should not be used as the sole basis for diagnosis, treatment, or other management decisions. If Influenza A/B and RSV PCR results are negative, testing for Parainfluenza virus, Adenovirus and Metapneumovirus is routinely performed for pediatric oncology and intensive care inpatients at [facility], and is available on [...] Abnormality Status --------- ------ Urinalysis with Reflex M...[[id number]] Abnormal Final result Extra Urine Orosco Tube[[id number]] Final result Please view results for these tests on the individual orders. TROPONIN SERIES- (INITIAL, 1 HR) Narrative: The following orders were created for panel order Troponin I Series, High Sensitivity (0, 1 HR). Procedure Abnormality Status --------- ------ Troponin I, High Sensiti...[[id number]] Abnormal Final result Troponin, High Sensitivi...[[id number]] Abnormal Final result Please view results for [...] Kahlil Fagan 10/11/2023 1:33 AM Dictation workstation: [id number] Critical Care Performed by: Aury Rouse DO [...] part of lung Aury Rouse DO 10/12/23514 [facility] Work Phone: [phone] 575-105412-08-2023 History of Present illness Narrative* Mary Vargas [...] being taken. Patient does not see a time cycle operator. Eye exam is current. Currently taking: No [...] bedside for hypoglycemia at night. Retinopathy: Negative CFA. 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 Had bilat cataract extraction Dr. Lopez. Sees Dr. Browne in [place] every year routinely.Has blurred vision with low [...] Call if BG consistently <70 or >250. [phone] Continue to check blood sugar 3 times [...] MD 10/10/23 8:04 PM documented in this [id number] Evaluation + Plan note* Assessment & Plan Note - Ayanna Albert, - 08/25/2023 2:39 PM EDTAssociated Problem(s): CKD (chronic kidney disease) Doing well with DM HTN well controlled Sees Endocrinology. Has Type 1 DM On Statin Not on nephrotoxins [facility] Work Phone: [phone]) 605-498810-25-2023 Miscellaneous Notes* Assessment & Plan Note - Ayanna Albert DO - 08/25/2023 2:39 PM EDTAssociated Problem(s): CKD (chronic kidney disease) Doing well with DM HTN well controlled Sees Endocrinology. Has Type 1 DM On Statin Not on nephrotoxins [facility] Work Phone: 1(613) 445-535110-25-2023 History of Present illness Narrative* Ayanna Albert [...] in this [facility] Work Phone: [phone]) [phone] History of Present illness Narrative* Paty Ortega [...] being taken. Patient does not see a time cycle operator. Eye exam is current. Currently taking: No [...] at HS. PLAN: See below. Retinopathy: Negative CFA. 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 Had bilat cataract extraction Dr. Lopez. Sees Dr. Browne in [place] every year routinely. Nephropathy: Positive Creat: 1.09; [...] Call if BG consistently <70 or >250. [phone] Continue to check blood sugar 4 times [...] CNP 02/19/23 10:25 AM documented in this [id number] History of Present illness Narrative* Paty Ortega [...] being taken. Patient does not see a time cycle operator. Eye exam is current. Currently taking: No [...] Reduce lunch and HS insulin. Retinopathy: Negative CFA. 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 Had bilat cataract extraction Dr. Lopez. Sees Dr. Browne in [place] every year routinely. Nephropathy: Positive Creat: 1.09; [...] Call if BG consistently <70 or >250. [phone] Continue to check blood sugar 4 times [...] CNP 10/19/22 10:25 AM documented in this [id number] History of Present illness Narrative* Paty Ortega [...] being taken. Patient does not see a time cycle operator. Eye exam is current. Currently taking: No [...] Reduce lunch and HS insulin. Retinopathy: Negative CFA. 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 Had bilat cataract extraction Dr. Lopez. Sees Dr. Browne in [place] every year routinely. Nephropathy: Positive Creat: 1.09; [...] Call if BG consistently <70 or >250. [phone] Continue to check blood sugar 4 times [...] MD 06/19/22 11:20 PM documented in this [id number] History of Present illness Narrative* Mary Vargas [...] being taken. Patient does not see a time cycle operator. Eye exam is current. Currently taking: No [...] Reduce lunch and HS insulin. Retinopathy: Negative CFA. 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 Had bilat cataract extraction Dr. Lopez. Sees Dr. Browne in [place] every year routinely. Nephropathy: Positive Creat: 1.09; [...] to check stenosis. To be done in [place] office. 2. Education: Reviewed ABCs of diabetes [...] Call if BG consistently <70 or >250. [phone] Continue to check blood sugar 4 times [...] MD 02/13/22 11:20 PM documented in this [id number] History of Present illness Narrative* Paty Ortega CYCLE TOURING GUIDE - 10/13/2021 2:10 PM EST Images from [...] being taken. Patient does not see a time cycle operator. Eye exam is current. Currently taking: No [...] HS. PLAN: See below. CPM Retinopathy: Negative CFA. Exam within last 12 months: yes Date: 10/16/20. Had bilat cataract extraction Dr. Lopez. Sees Dr. Browne in [place] every year routinely. Nephropathy: Negative Creat: 1.08; [...] Call if BG consistently <70 or >250. [phone] Continue to check blood sugar 4 times [...] CNP 10/13/21 2:55 PM documented in this [id number] History of Present illness Narrative* Paty Ortega CNP - 06/20/2021 2:47 PM EDT Images from the original note were not included. Patient ID: Enoc Armando is a 75 y.o. male Subjective: HPI: nEoc Armando presents for follow-up of Type 1 [...] being taken. Patient does not see a time cycle operator. Eye exam is current. Currently taking: No [...] HS. PLAN: See below. CPM Retinopathy: Negative CFA. Exam within last 12 months: yes Date: 10/16/20. Had bilat cataract extraction Dr. Lopez. Sees Dr. Browne in [place] every year routinely. Nephropathy: Negative Creat: 1.08; [...] Call if BG consistently <70 or >250. [phone] Continue to check blood sugar 4 times [...] CNP 06/20/21 2:55 PM documented in this [id number] History of Present illness Narrative* Mary Vargas [...] being taken. Patient does not see a time cycle operator. Eye exam is current. Currently taking: No [...] HS. PLAN: See below. CPM Retinopathy: Negative CFA. Exam within last 12 months: yes Date: 10/16/20. Had bilat cataract extraction Dr. Lopez. Sees Dr. Browne in [place] every year routinely. Nephropathy: Negative Creat: 1.08; [...] Call if BG consistently <70 or >250. [phone] Continue to check blood sugar 4 times [...] in this encounterOhioHealthDischarge summary Author John Brandon [facility] Note Date/Time April 03, 2025 4:11a m [facility] Medical Records Department [address] [place] [address] Emergency Department Summary 04/03/25 MR#: [id number] Acct: [id number] Name: ENOC ARMANDO Rep #:[id number] : 1945 79 From: John Ramirez PCP: Dr. Ryley Jeter MD Status:REG ER Location: ED HPI History of Present Illness Chief Complaint: Shortness of Breath [facility] Medical History Pneumonia COVID Wears glasses [...] AdvReac Other Verified 04/03/25 00:16 (Glucocorticoids) (steroids) Lrxiqvv-Fpb-Pkb Reductase AdvReac Other Verified 04/03/25 00:16 Inhibitor [...] Consults: internal medicine only sees Dr. Hwang) [facility] Narrative: The patient was initially tachycardic, tachypneic, [...] to ICU This note was generated with [employer] dictation software. It may contain incorrectwords, spelling, [...] 76.4 H Lymph % (Auto) 13.5 L [place] % (Auto) 7.0 Eos % (Auto) 1.9 [...] possibly multifocal congestion and/or pneumonia. Reading Location: [place] [address] Discharge Plan Triage Chief Complaint: Shortness of [...] MD [Primary Care Provider] - Print Language: Belgian What to do if you have Problems For any increased pain, shortness of breath, bleeding, nausea or vomiting, chestpain, or any unexpected problems, contact your Primary Care Provider. Call [facility] ([phone]) or report to the closest Emergency Room. Call 911 if necessary. 04/03/25 0411 <Electronically signed by John Brandon DO> Cosigner Signature (if applicable): CC: Dr. Ryley Jeter MD ~ Signed [facility] Work Phone: Discharge summary Author Grace [facility] Note Date/Time April 10, 2025 5:09 pm [facility] Medical Records Department [address] [place] [address] Instructions for Home/Discharge Instructions 04/10/25 1527 MR#: [id number] Acct: [id number] Name: ENOC ARMANDO Rep #:[id number] : 1945 79 From: Grace Arnold MD [...] MD; Dr. 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 1 diabetes mellitus with diabetic neuropathy (HCC) Essential hypertension Unspecified essential hypertension Pure hypercholesterolemia documented [facility] Diagnosis COVID-19- Primary COVID-19 Acute respiratory failure with hypoxia (CMS/HCC) Acute congestive heart failure, unspecified heart failure type (CMS/HCC) Pneumonia of both lungs due to infectious organism, unspecified part of lung Abnormal electrocardiogram (ECG) (EKG) Acute on chronic systolic (congestive) heart failure (CMS/HCC) documented in this encounter [facility] Work Phone: Evaluation note* Diagnosis 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- Primary Dyslipidemia Other and unspecified hyperlipidemia Congestive heart failure, unspecified HF chronicity, unspecified heart failure type (HCC) documented in this encounter [facility] noteNo assessment information availableWWayne Hospital Work Phone: Evaluation note* Diagnosis NSTEMI (non-ST elevated myocardial infarction) ([facility])- Primary Acute myocardial infarction, subendocardial infarction, episode of care unspecified MADONNA (acute kidney injury) ([facility]/HCC) Acute combined systolic and diastolic congestive heart failure ([facility]) Type 1 diabetes mellitus with other specified complication ([facility]) documented in this encounter [facility] Work Phone: Evaluation note* Diagnosis NSTEMI [...] diabetic neuropathy (Multi) documented in this encounter [facility] Work Phone: Evaluation note* Diagnosis Type 1 [...] with diabetic neuropathy documented in this encounter [facility] Work Phone: Evaluation note* Diagnosis Type 1 [...] [facility]* Diagnosis Coronary 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- Primary documented in [...] of cerebral infarction Coronary 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- Primary Claudication in [...] with diabetic neuropathy documented in this encounter [facility] Work Phone: Evaluation note* Diagnosis Bilateral carotid artery stenosis Occlusion and stenosis of carotid artery without mention of cerebral infarction Coronary 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- Primary NSTEMI (non-ST [...] Admit Date Acute hypoxic respiratory failure ac [place] April 03, 2025 4:16am [facility] Work Phone: Evaluation note* Diagnosis Bilateral carotid artery stenosis Occlusion and stenosis of carotid artery without mention of cerebral infarction 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 Ryley Jeter MD Status:ADM IN Location: ICU ICU04-1 [facility] General Date of Admission: 04/03/25 Date of Service: 04/03/25 Chief Complaint: Dyspnea. HPI Narrative The patient is an 79 y/o M w/ PMHx: CKD stage III unclear subtype per GFR trending, Chronic macrocytic anemia, HTN, HLD, Diabetes mellitus type II, BPH with obstructive pathology, Tobacco use who presents to the [facility] ED on 04/03/2025 with history of worsening [...] x 1 and sublingual nitroglycerin x 1. [facility] Medical History (Updated 04/03/25 @ 04:40 by [...] AdvReac Other Verified 04/03/25 00:16 (Glucocorticoids) (steroids) Imibmwb-WQB-KwY Reductase AdvReac Other Verified 04/03/25 00:16 Inhibitor (Svpcwef-Gef-Igl Reductase Inhibitor) Family History (Updated 04/03/25 @ [...] 76.4 H, Lymph % (Auto) 13.5 L, [place] % (Auto) 7.0, Eos % (Auto) 1.9, [...] possibly multifocal congestion and/or pneumonia. Reading Location: [place] [address] Chest CTA 04/03/25 02:34 IMPRESSION: Mild bilateral pleural effusions. Passive atelectatic airspace disease/airspace consolidations of the lower lobes. Bilateral chronic perihilar interstitial pulmonary thickening with associated mild multifocal ground-glass densities, possibly superimposed pneumonia. Mild diffuse spondylosis. No CT evidence of pulmonary embolus or aortic dissection. Reading Location: [place] [address] Assessment & Plan Assessment/Plan (1) Acute hypoxic respiratory failure: PLAN: Plan The patient is an 79 y/o M w/ PMHx: CKD stage III unclear subtype per GFR trending, Chronic macrocytic anemia, HTN, HLD, Diabetes mellitus type II, BPH with obstructive pathology, Tobacco use who presents to the [facility] ED on 04/03/2025 with history of worsening [...] any pulmonary embolus or aortic dissection, initial with repeat delta troponin 76. Will maintain [...] 16 minutes. Charges/Coding Visit Charges Inpatient E&M: 93921 Init Hosp L3 Procedures Hospitalists Procedures: 55647 Advncd Care Plan 30 Min 04/03/25 0442 <Electronically signed by Dyana Hwang MD> Cosigner Signature (if applicable): CC: Dr. Dyana Hwang MD; Dr. Ryley Jeter MD~ Signed [facility] Work Phone: History of Present illness Narrative* At least a 5 yr HX of LBP (previous HX of sciatica). No recent film studies have been done. He willbe a low fall risk. The patient will continue his therapy at [place]. Physical findings include limited trunk ROM with discomfort. Continue with trunk mech trng, STW (needling), and core stability/ROM exercises. * Clinical Presentation: Stable and/or uncomplicated characteristics. * Level of Complexity: low * Problem List: activity limitations, ADLs/IADLs/self care skills, decreased functional level, decreased knowledge of HEP, decreased knowledge of precautions, fall risk, gait/locomotion, pain, range ofmotion/joint mobility and strength. [facility] Work Phone: History of Present illness NarrativePatient identified by name and date of . Patient demonstrated good understanding of exercises and stretching with cues to complete after instruction. He presented with palpable tension in gluts and QL and paraspinals that responded well to STW. [facility] Work Phone: History of Present illness [...] with relief noted d/t tightness in LB. [facility] [place] Work Phone: History of Present illness Narrative* Tightness along the ITB and QL continues. * Palpable spams in both regions with with STW. * Fair trunk flexibility with SKTC. [facility] [employer] Work Phone: History of Present illness NarrativePatient identified by name and date of . Patient was able to progress with several exercises this date with addition of teri disc and focus on maintain upright posture. He presented with increased muscle tension in IT band and QL this date.[facility] [employer] Work Phone: History of Present illness NarrativePatient identified by name and date of . Added IT band stretch this date and instructed for HEP due to palpable tension. Reviewed importance of HEP even if he feels sore to increased with ROM and decrease with muscle tension, he verbalized good understanding. Patient continues to present with palpable muscle tension/restrictions in his piriforms.[facility] [employer] Work Phone: History of Present illness NarrativePatient identified by name and date of . Added IT band stretch this date and instructed for HEP due to palpable tension. Reviewed importance of HEP even if he feels sore to increased with ROM and decrease with muscle tension, he verbalized good understanding. Patient continues to present with palpable muscle tension/restrictions in his piriforms.[facility] [place] Work Phone: History of Present illness NarrativePatient [...] inclusion of trigger point dry needling.[facility] Work Phone: History of Present illness NarrativeSTW [...] a TENS unit for the patient. [facility] Work Phone: reason for referral (narrative)* Consultation (Routine) - Authorized Specialty Diagnoses / Procedures Referred By Jimy stacy Referred To Contact Nephrology Diagnoses Stage 3b chronic kidney disease (CMS/HCC) Procedures Follow Up In Nephrology Ayanna Albert DO [address] [place] [address] Referral ID Status Reason Start Date Expiration Date V isits Requested Visits Authorized [id number] Authorized 08/25/2023 08/24/2024 1 1 [facility] Work Phone: Reason for referral (narrative)* Consultation (Routine) - Authorized Specialty Diagnoses / Procedures Referred By Jimy stacy Referred To Contact Nephrology Diagnoses Stage 3b chronic kidney disease ([facility]) Procedures Follow Up In Nephrology Madie Albert APRN-CNP, DNP [address] [place] [address] Referral ID Status Reason Start Date Expiration Date V isits Requested Visits Authorized [id number] Authorized 02/24/2024 02/23/2025 1 1 [facility] Work Phone: Reason for referral (narrative)No reason for referral information availableWWayne [facility] Work Phone: Reason for visit Narrative* Initial Evaluation . lumbar DDD. * Referred by: Yuki [facility] Work Phone[facility] N[facility]* Auth/Cert Specialty Diagnoses / Procedures Referred By Contac t Referred To Contact Diagnoses NSTEMI (non-ST elevated myocardial infarction) (HCC) NSTEMI Referral ID Status Reason Start Date Expiration Date Visits Re quested Visits Authorized [id number] 1 1 [facility] for visit Narrative* Auth/Cert (Routine) Specialty Diagnoses / Procedures Referred By Contac t Referred To Contact Diagnoses Cardiovascular stress test abnormal Fatigue, unspecified type SOB (shortness of breath) Cardiovascular stress test abnormal [R94.39] Fatigue, unspecified type [R53.83] SOB (shortness of breath) [R06.02] Procedures Left Heart Cath Referral ID Status Reason Start Date Expiration Date Visits Re quested Visits Authorized [id number] 1 1 [facility] Instructions * Patient Instructions - [...] Documents on File Type Date Recorded Patient Materials Planning Analyst Expl anation Advance Directives and Living Will Documents on File Type Date Recorded Patient Materials Planning Analyst Expl anation Advance Directives and Livin g Will 10/18/2020 1:33 PM Documents on File Type Date Recorded Patient Materials Planning Analyst Expl anation Advance Directives and Livin g Will 10/18/2020 1:33 PM Documents on File Type Date Recorded Patient Materials Planning Analyst Expl anation Advance Directives and Livin g Will 02/21/2021 3:38 PM Documents on File Type Date Recorded Patient Materials Planning Analyst Expl anation Advance Directives and Livin g Will 02/21/2021 3:38 PM Latest Code Status on File Code Status Date Activated Date Inactivated Comments Full Code 10/11/2023 5:02 AM Question Answer Comments Plan of Care: Code Status Discussion Completed Decision Maker: Patient Advance Directive Response Recorded Date/ Time Living Will Yes August 05 7:59am Power of Charge Master Specialist Yes August 05 7:59am Latest Code Status [...] Documents on File Type Date Recorded Patient Materials Planning Analyst Expl anation Advance Directives and Livin g [...] Documents on File Type Date Recorded Patient Materials Planning Analyst Expl anation Advance Directives and Livin g [...] Do you have a Healthcare Power of Charge Master Specialist? No April 03, 2025 5:17am History of Present Illness * Keeley Patton CNP - 11/11/2018 8:11 AM EST Formatting of this note may be different from the original. Patient ID: Enoc Armando is a 72 y.o. male Subjective: HPI: Enoc Armando presents for follow-up of Type 1 diabetes The initial diagnosis of diabetes was [id number] years ago in 1994. Disease course has [...] being taken. Patient does not see a time cycle operator. Eye exam is current. Patient with a [...] blood sugar though. PLAN: CPM. Retinopathy: Negative CFA. Exam within last 12 months: yes Date: 08/2018 . Had bilat cataract extraction Dr. Lopez. Sees Dr. Browne in [place] every year routinely. Nephropathy: Negative Creat: 1.2, [...] Call if BG consistently <70 or >250. [phone] Continue to check blood sugar 4 times [...] being taken. He does not see a time cycle operator.Eye exam is current (Jun 16). The following [...] between apt for further adjustments Retinopathy: Negative CFA. Exam within last 12 months: yes Date: [...] Last CBC-WBC8.2/ Hgb- 14.6/ Hct- 44.1/ Plt [id number] Problem List Items Addressed This Visit Endocrine [...] diabetes The initial diagnosis of diabetes was [id number] years ago in 1994. Disease course has [...] being taken. Patient does not see a time cycle operator. Eye exam is current. Currently taking: No [...] the morning. PLAN: See below Retinopathy: Negative CFA. Exam within last 12 months: yes Date: 08/2018- patient due next month for updated exam Had bilat cataract extraction Dr. Lopez. Sees Dr. Browne in [place] every year routinely. Nephropathy: Negative Creat: 1.0, [...] to bedtime appear to be typically less [id number] and usually less than 180. He was [...] Call if BG consistently <70 or >250. [phone] Continue to check blood sugar 4 times [...] diabetes The initial diagnosis of diabetes was [id number] years ago in 1994. Disease course has [...] being taken. Patient does not see a time cycle operator. Eye exam is current. Currently taking: No [...] at HS. PLAN: See below Retinopathy: Negative CFA. Exam within last 12 months: yes Date: 08/2018- patient due next month for updated exam Had bilat cataract extraction Dr. Lopez. Sees Dr. Browne in [place] every year routinely. Nephropathy: Negative Creat: 1.08; [...] Call if BG consistently <70 or >250. [phone] Continue to check blood sugar 4 times [...] being taken. Patient does not see a time cycle operator. Eye exam is current. Currently taking: No [...] <150 atHS. PLAN: See below Retinopathy: Negative CFA. Exam within last 12 months: yes Date: 09/2019- patient due September 2020for updated exam Had bilat cataract extraction Dr. Lopez. Sees Dr. Browne in [place] every yearroutinely. Nephropathy: Negative Creat: 1.01; eGFR: [...] Call if BG consistently <70 or >250. [phone] Continue to check blood sugar 4 times [...] being taken. Patient does not see a time cycle operator. Eye exam is current. Currently taking: No oral hypoglycemic medications Humalog insulin: 10 units at breakfast; 10 units at lunch; 14-15 units at supper Lantus insulin: 18 units at bedtime Outpatient Medications Marked as Taking for the 10/18/20 encounter (Office Visit) with Paty Ortega, CYCLE TOURING GUIDE: amLODIPine (NORVASC) 10 MG tablet, Take 10 [...] <150 atHS. PLAN: See below Retinopathy: Negative CFA. Exam within last 12 months: yes Date: 10/16/20. Had bilat cataract extraction Dr. Lopez. Sees Dr. Browne in [place] every year routinely. Nephropathy: Negative Creat: 1.01; [...] Call if BG consistently <70 or >250. [phone] Continue to check blood sugar 4 times [...] diabetes The initial diagnosis of diabetes was [id number] years ago in 1994. Disease course has [...] being taken. Patient does not see a time cycle operator. Eye exam is current. Currently taking: No [...] same dose of 18 unitsnightly. Retinopathy: Negative CFA. Exam within last 12 months: yes Date: 08/2018 . Had bilat cataract extraction Dr. Lopez. Sees Dr. Browne in [place] every year routinely. Nephropathy: Negative Creat: 1.0, [...] Call if BG consistently <70 or >250. [phone] Continue to check blood sugar 4 times [...] Procedures Ultrasound doppler carotid Mary Vargas MD [address] [place] [address] Status Reason Specialty Diagnoses / Procedures Referre d By Contact Referred To Contact Closed Cardiology Diagnoses Bilateral carotid artery stenosis Procedures Ultrasound doppler carotid Mary Vargas MD [address] [place] [address] [facility] Sigrid [address] [facility] [place] [address] Specialty Diagnoses / Procedures Referred By Contac t Referred To Contact Urology Diagnoses Elevated PSA Paty Ortega CNP [address] [place] [address] Alvaro Gutierrez MD [address] [place] [phone] Referral ID Status Reason Start Date Expiration Date Visits Requested Visits Authorized [id number] Pending Review Specialty Services Required/Pat ient's Best Interest 06/19/2022 06/19/2023 1 1 Specialty Diagnoses / Procedures Referred By Contac t Referred To Contact Cardiology Diagnoses Bilateral carotid artery stenosis Procedures Ultrasound doppler carotid Paty Ortega, CYCLE TOURING GUIDE [address] [place] [address] Referral ID Status Reason Start Date Expiration Date V isits Requested Visits Authorized [id number] Authorized 10/19/2022 10/19/2023 1 1 Specialty Diagnoses / Procedures Referred By Contac t Referred To Contact Radiology Diagnoses Congestive heart failure, unspecified HF chronicity, unspecified heart failure type (HCC) 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 DATE CREATED AUTHOR AUTHOR'S ORGANIZ ATION 08/04/2023 [facility] DATE CREATED AUTHOR AUTHOR'S ORGANIZ ATION 08/06/[address] [facility] DATE CREATED AUTHOR AUTHOR'S ORGANIZ ATION 10/13/2023 [facility] DATE CREATED AUTHOR AUTHOR'S ORGANIZ ATION 11/12/2024 [facility] DATE CREATED AUTHOR AUTHOR'S ORGANIZ ATION 02/27/2025 [facility] DATE CREATED AUTHOR AUTHOR'S ORGANIZ ATION 03/13/2025 [facility] DATE CREATED AUTHOR AUTHOR'S ORGANIZ ATION 03/30/2025 [facility] DATE CREATED AUTHOR AUTHOR'S ORGANIZ ATION 04/14/2025 [facility] DATE CREATED AUTHOR AUTHOR'S ORGANIZ ATION 04/15/2025 [facility] DATE CREATED AUTHOR AUTHOR'S ORGANIZ ATION 04/17/2025 [facility] Reason for Visit (unrecogniz ed section and content) Reason Comments Diabetes Mellitus Reason Onset Date Comments Medication Refill 02/18/2021 Reason Comments Diabetes Mellitus Status Reason Specialty Diagnoses / Procedures Referre d By Contact Referred To Contact Closed Cardiology Diagnoses Bilateral carotid artery stenosis Procedures Ultrasound doppler carotid Mary Vargas MD [address] [place] [address] [place] [address] Reason Onset Date Comments Medication Refill 10/08/2021 [...] COVID-19 Procedures No coded services entered Praful Malonye MD [address] [place] [address] [facility] [address] [place] [address] Referral ID Status Reason Start Date Expiration Date Visits Re quested Visits Authorized [id number] 1 1 Reason Comments Initial Visit (Intake) SOBOE Specialty Diagnoses / Procedures Referred By Contac t Referred To Contact Cardiology Diagnoses Congestive heart failure, unspecified HF chronicity, unspecified heart failure type ([facility]) Mary Vargas MD [address] [place] [address] [place] [address] Referral ID Status Reason Start Date Expiration Date Visits Re quested Visits Authorized [id number] Closed 10/19/2023 10/18/2024 1 1 Reason Comments Respiratory Distress Pt comes in for dif ficulty breathing. Pt states that he was dx with a viral lung infection 1 wk ago and placed on a steroid. Pt had covid 1 month ago and was admitted for 1 wk at this facility. Pt began to experience difficulty breathing for 1 hr captain room service. EMS reports an O2 level in the [...] Bilateral carotid artery stenosis Sandi Phan PA-C [address] [place] [address] Phone: tel: fax: [address] [address] Phone: tel: Referral ID Status Reason Start Date Expiration Date V isits Requested Visits Authorized [id number] Pending Review 11/07/2024 11/07/2025 1 1 Reason [...] Ayanna Albert DO [address] [place] [address] Phone: tel: fax: Referral ID Status Reason Start Date Expiration Date V isits Requested Visits Authorized [id number] Authorized 08/29/2024 08/29/2025 1 1 Reason Comments Shortness of Breath Abnormal Lab BNP Reason Comments Diabetes Mellitus Diabetic Eye Exam du e on 10/14/2021 Reason Onset Date Comments Results 03/27/2025 Lab Reason Onset Date Comments Medication Refill 04/16/2025 Care Teams (unrecognized sec tion and content) Service Vehicle Operator Relationship Specialty Start Date End Date Nancy Mirza MD PCP - General Family Medicine 01/09/16 Service Vehicle Operator Relationship Specialty Start Date End Date Nancy Mirza MD PCP - General Family Medicine 01/09/16 Service Vehicle Operator Relationship Specialty Start Date End Date Nancy Mirza MD PCP - General Family Medicine 01/09/16 Service Vehicle Operator Relationship Specialty Start Date End Date Nancy Mirza MD PCP - General Family Medicine 01/09/16 Service Vehicle Operator Relationship Specialty Start Date End Date Nancy Mirza MD PCP - General Family Medicine 01/09/16 Service Vehicle Operator Relationship Specialty Start Date End Date Nancy Mirza MD PCP - General Family Medicine 01/09/16 Service Vehicle Operator Relationship Specialty Start Date End Date Nancy Mirza MD PCP - General Family Medicine 01/09/16 Service Vehicle Operator Relationship Specialty Start Date End Date Nancy Mirza MD [address] [place] [address] PCP - General Family Medicine 01/09/16 Service Vehicle Operator Relationship Specialty Start Date End Date Nancy Mirza MD [address] [place] [address] PCP - General Family Medicine 01/09/16 Service Vehicle Operator Relationship Specialty Start Date End Date Nanyc Mirza MD [address] [place] [address] PCP - General 11/01/18 Service Vehicle Operator Relationship Specialty Start Date End Date Ryley Jeter MD [address] [place] [address] PCP - General Family Medicine 10/08/23 Service Vehicle Operator Relationship Specialty Start Date End Date Nancy Mirza MD [address] [place] [address] PCP - General 11/01/18 Service Vehicle Operator Relationship Specialty Start Date End Date Ryley Jeter MD [address] [place], [place] [id number] PCP - General Family Medicine 10/08/23 Service Vehicle Operator Relationship Specialty Start Date End Date Ryley Jeter MD [address] [place], [place] [id number] PCP - General Family Medicine 10/08/23 Team Status: Active Member Role Status Lizzette Jeter MD Primary Care Provider Active Team Status: Inactive Member Role Status Lizzette Jeter MD Primary Care Provider Active Jana Ferguson WET SILK HANGER, WET SILK HANGER-C Attending Provider Active Team Status: Inactive Member Role Status Lizzette Jeter MD Primary Care Provide r, Attending Provider, Referring Provider Active Service Vehicle Operator Relationship Specialty Start Date End Date Ayanna Albert DO [address] [place], [place] [address] [place] [address] PCP - [employer] Medicare Advantage PCP 11/01/23 Generic Provider, No Assigned PcpMD [address] [place] [address] PCP - General Internal Medicine 11/26/23 Service Vehicle Operator Relationship Specialty Start Date End Date Ayanna Albert DO [address] [place], [place] [id number] PCP - [employer] Medicare Advantage PCP 11/01/23 Gerri Amos MD [address] [place] [address] PCP - General Internal Medicine 11/26/23 Service Vehicle Operator Relationship Specialty Start Date End Date Ryley Jeter MD [address] [place] [address] PCP - General Family Medicine 10/08/23 Service Vehicle Operator Relationship Specialty Start Date End Date Nancy Mirza MD [address] [place] [address] PCP - General 11/01/18 11/25/23 Service Vehicle Operator Relationship Specialty Start Date End Date Ryley Jeter MD [address] [place] [address] PCP - General Family Medicine 10/08/23 Service Vehicle Operator Relationship Specialty Start Date End Date Ryley Jeter MD [address] [place] [address] PCP - General Family Medicine 10/08/23 Service Vehicle Operator Relationship Specialty Start Date End Date Ryley Jeter MD [address] [place] [address] PCP - General Family Medicine 10/08/23 Service Vehicle Operator Relationship Specialty Start Date End Date Ryley Jeter MD [address] [place] [address] PCP - General Family Medicine 10/08/23 Service Vehicle Operator Relationship Specialty Start Date End Date Ayanna Albert DO [address] [place] [address] PCP - [employer] Medicare Advantage PCP 11/01/23 Generic Provider, No Assigned Pcp, [address] [place] [address] PCP - General Internal Medicine 11/26/23 Service Vehicle Operator Relationship Specialty Start Date End Date Ryley Jeter MD [address] [place] [address] PCP - General Family Medicine 10/08/23 Service Vehicle Operator Relationship Specialty Start Date End Date Ayanna Albert DO [address] [place], [place] [id number] PCP - [employer] Medicare Advantage PCP 11/01/23 Generic Provider, No Assigned PcpMD [address] [place] [address] PCP - General Internal Medicine 11/26/23 Service Vehicle Operator Relationship Specialty Start Date End Date Ryley Jeter MD [address] [place] [address] PCP - General Family Medicine 10/08/23 Service Vehicle Operator Relationship Specialty Start Date End Date Ryley Jeter MD [address] [place] [address] PCP - General Family Medicine 10/08/23 Service Vehicle Operator Relationship Specialty Start Date End Date Ryley Jeter MD [address] [place] [address] PCP - General Family Medicine 10/08/23 Service Vehicle Operator Relationship Specialty Start Date End Date Ryley Jeter MD [address] [place] [address] PCP - General Family Medicine 10/08/23 Service Vehicle Operator Relationship Specialty Start Date End Date Ryley Jeter MD [address] [place] [address] PCP - General Family Medicine 10/08/23 Service Vehicle Operator Relationship Specialty Start Date End Date Ryley Jeter MD [address] [place], [place] [phone] PCP - General Family Medicine 10/08/23 Service Vehicle Operator Relationship Specialty Start Date End Date Ryley Jeter MD [address] [place], [place] [phone] PCP - General Family Medicine 10/08/23 Service Vehicle Operator Relationship Specialty Start Date End Date Ryley Jeter MD [address] [place], [place] [address] PCP - General Family Medicine 10/08/23 Kristy Parkre MD [address] [place] [address] Consulting Physician Vascular Surgery 11/09/24 Service Vehicle Operator Relationship Specialty Start Date End Date Ryley Jeter MD [address] [place], [place] [phone] PCP - General Family Medicine 10/08/23 Kristy Parker MD [address] [place] [address] Consulting Physician Vascular Surgery 11/09/24 Service Vehicle Operator Relationship Specialty Start Date End Date Ryley Jeter MD [address] [place], [place] [phone] PCP - General Family Medicine 10/08/23 Kristy Parker MD [address] [place] [address] Consulting Physician Vascular Surgery 11/09/24 Service Vehicle Operator Relationship Specialty Start Date End Date Ryley Jeter MD [address] [place], [place] [address] PCP - General Family Medicine 10/08/23 Kristy Parker MD [address] [place] [address] Consulting Physician Vascular Surgery 11/09/24 Service Vehicle Operator Relationship Specialty Start Date End Date Ryley Jeter MD [address] [place], [place] [address] PCP - General Family Medicine 10/08/23 Kristy Parker MD [address] [place] [address] Consulting Physician Vascular Surgery 11/09/24 Team Status: Inactive Member Role Status Dates Ryley Jeter MD Primary Care Provider Active St art: February 06, 2025 End: February 06, 2025 Dr. Kerwin Tamayo MD Attending Provider Activ e Start: February 06, 2025 End: February 06, 2025 Service Vehicle Operator Relationship Specialty Start Date End Date Ryley Jeter MD [address] [place], [place] [phone] PCP - General Family Medicine 10/08/23 Kristy Parker MD [address] [place] [address] Consulting Physician Vascular Surgery 11/09/24 Service Vehicle Operator Relationship Specialty Start Date End Date Ryley Jeter MD [address] [place], [place] [address] PCP - General Family Medicine 10/08/23 Kristy Parker MD [address] [place] [address] Consulting Physician Vascular Surgery 11/09/24 Service Vehicle Operator Relationship Specialty Start Date End Date Ryley Jeter MD [address] [place], [place] [address] PCP - General Family Medicine 10/08/23 Kristy Parker MD [address] [place] [address] Consulting Physician Vascular Surgery 11/09/24 Service Vehicle Operator Relationship Specialty Start Date End Date Generic Provider, No Assigned PcpMD PCP - General Internal Medicine 11/26/23 Service Vehicle Operator Relationship Specialty Start Date End Date Ryley Jeter MD [address] [place], [place] [address] PCP - General Family Medicine 10/08/23 Kristy Parker MD [address] [place] [address] Consulting Physician Vascular Surgery 11/09/24 Service Vehicle Operator Relationship Specialty Start Date End Date Ryley Jeter MD [address] [place], [place] [id number] PCP - General Family Medicine 10/08/23 Kristy Parker MD [address] [place] [address] Consulting Physician Vascular Surgery 11/09/24 Team Status: [...] St art: April 03, 2025 Dr. Favian Moreon MD Other Provider Active Start: April 03, [...] Active Star t: April 06, 2025 Dr. Chralie Garcia MD Other Provider Active Sta rt: [...] dose 0203 (Given - Provider: Scarlet Ashford, MANAGER PERIOPERATIVE - Comment: albuterol) amLODIPine (Norvasc) tablet 10 [...] Juares RRT)1153 (Given - Provider: Nancy Juares MANAGER PERIOPERATIVE)1821 (Given - Provider: Scarlet Ashford RRT)2145 (Given [...] Jody Ball RN - Comment: Per Dr. aBsilio, turn inuslin infusion to 3 units/hour)2238 (Stopped [...] Hemphill RRT)2310 (Start - Provider: Malika L [place], MANAGER PERIOPERATIVE) 0623 (Rate/Dose Verify - Provider: Delmar Mcgowan, [...] 221 (Given - Provider: Kristi Bowman RN) vumgaryolmav-mhgdapyafc-oknzgcpe (Zosyn) IV 3.375 g (COMPLETED) 3.375 g, [...] 11/27/23 at 0337, Anginal pain, may repeat [id number] x3, then notify physician. DO NOT CRUSH [...] Comment: 8 units instructed verbal order from [facility]) isosorbide mononitrate (IMDUR) [...] Julia Chan RN)2302 (Rate/Dose Verify - Provider: Jluia Chan RN)2305 (Stopped - Provider: Julia Chan [...] Julia Chan, RN)0930 (Stopped - Provider: Karthik Sanodval, RN) fentaNYL (SUBLIMAZE) injection (CANCELED) As needed, [...] BE BASED ON THE PRIMARY CLINICAL RECORDS. [facility]. provides no warranty or guarantee of the accuracy or completeness of information in this document.
[2025-04-19 03:49] LABS: Allen Test Positive; Base Excess -2 mmol/L (-2 to +2); Bicarbonate 21.6 mmol/L (22-26); Blood Gas Specimen Type ART; Mode Not entered; O2 Delivery Device HFNC; PO2 103 mmHG (75-100); SITE L Radial; SO2 98 % (95-99); Total Carbon Dioxide 23 mmol/L; pCO2 30.8 mmHg (35-45); pH 7.45 (7.35-7.45)
--- NOTE | 2025-04-19 04:03 | VDLE_ITS ---
Reason For Study Reason For Study: ELEVATED D-DIMER RIGHT LEFT GSV is normal. GSV is normal. CFV is compressible, spontaneous, phasic, competent CFV is compressible, spontaneous, phasic, competent, and demonstrates normal augmentation. and demonstrates normal augmentation. FV is compressible, spontaneous, phasic, competent FV is compressible, spontaneous, phasic, competent and demonstrates normal augmentation. and demonstrates normal augmentation. POP V is compressible, spontaneous, phasic, competent POP V is compressible, spontaneous, phasic, competent and demonstrates normal augmentation. and demonstrates normal augmentation. T/P Trunk is compressible. T/P Trunk is compressible. PTV is compressible. PTV is compressible. RT PerV is compressible. LT PerV is compressible. Procedure This is a venous duplex using B-mode, color flow and spectral Doppler. Exam performed portable in ICU/CCU. The study was technically difficult. A preliminary report was called and/or faxed to ICU @ 10:45 AM. VL/Venous Duplex US - Kenneth Extrem Interpretation Summary Deep veins of the lower extremities are bilaterally patent and compressible seg mentally. There is no evidence of deep vein thrombosis on either side. Valvular competence appears intact within the p roximal deep venous systems bilaterally. The great saphenous veins appear bilaterally patent and compressible segmentall y. Ordering Physician: Tj Rizzo Referring Physician: Ryley Montenegro Performed By: Jennifer Ambriz, NATHANCS, RVT
[2025-04-19] MEDS: Ceftriaxone 1 GM/50 ML BAG IV ×2 (04:08→22:23)
[2025-04-19] MEDS: Furosemide 40 MG/4 ML Vial IV ×2 (04:08→17:23)
[2025-04-19] MEDS: Enoxaparin 80 MG/0.8 ML Syringe 70 MG SC (04:09)
[2025-04-19 04:22] LABS: Absolute Lymphocyte Count 0.33 X10^3/uL (0.83-4.51); Absolute Neutrophil Count 12.7 X10^3/uL (2.0-7.7); Basophil# 0.03 X10^3/uL; Basophil% 0.2 % (0-1); Eosinophil# 0.01 X10^3/uL; Eosinophils% 0.1 % (0-5); Hematocrit 23.7 % (40-54); Hemoglobin 7.5 g/dL (13.0-16.5); Lymphocyte # 0.33 X10^3/ul (0.83-4.51); Lymphocyte % 2.4 % (19-41); Mean Corp Hgb Conc 31.6 g/dL (32-36); Mean Corpuscular Hgb 29.8 pg (27.0-32.0); Mean Platelet Vol. 11.3 fl (6.2-12.0); Monocyte# 0.32 X10^3/uL; Monocyte% 2.4 % (0-10); NRBC Flagged by Analyzer 0 % (0-5); Neutrophil # 12.74 X10^3/uL (2.7-7.7); Neutrophil % 94.3 % (47-70); POSITIVE DIFFERENTIAL YES; Platelet Count 218 K/mm3 (150-450); RBC Distribution Width CV 13.4 % (11.6-14.6); RBC Distribution Width SD 46.2 fl (35.1-43.9); Red Blood Count 2.52 M/mm3 (4.6-6.2); White Blood Count 13.5 K/mm3 (4.4-11.0)
[2025-04-19 04:48] LABS: Lactic Acid 4.8 mmol/L (0.0-2.0)
[2025-04-19 04:52] LABS: ALB/GLOB Ratio 1.3 RATIO (0.9-2.4); AST(SGOT) 26 U/L (<=37); Alanine Aminotransfer ALT/SGPT 30 U/L (<=46); Albumin, Serum 3.3 g/dL (3.4-4.8); Alkaline Phosphatase 76 U/L (40-129); Anion Gap 18 (5-15); BUN 69 mg/dL (4-19); BUN/Creat Ratio 23.4 RATIO (10-20); Calcium,Total 9.3 mg/dL (7.6-11.0); Carbon Dioxide 17.8 mmol/L (21.0-32.0); Chloride 101 mmol/L (98-108); Creatinine, Serum 2.95 mg/dL (0.70-1.20); EST Glomerular Filtration Rate 21 (>60); Estimated Creatinine Clearance 17.72 ml/min (50-250); Globulin 2.5 g/dL (2.2-4.2); Glucose 447 mg/dL (70-99); Potassium 5.2 mmol/L (3.3-5.1); Pro- Brain NATRIURETIC PEPTIDE 14480 pg/mL (<=1800); Protein, Total 5.8 g/dL (5.9-8.4); Sodium Level 137 mmol/L (133-145); Total Bilirubin 0.31 mg/dL (0.00-1.30)
[2025-04-19] MEDS: Insulin Lispro 100 UNIT/ML INSULN.PEN SC ×4 (04:57→23:10)
[2025-04-19] MEDS: 0.9% Saline Lock 10 ML Syringe IV ×2 (04:57→22:23)
[2025-04-19] MEDS: Insulin Glargine-YFGN 100 UNIT/ML Pen 15 UNIT SC ×2 (04:57→23:09)
[2025-04-19 05:11] LABS: Troponin T High Sensitivity 394 ng/L (<=22)
[2025-04-19 05:19] LABS: Bedside Glucose 403 mg/dL (74-106)
[2025-04-19 06:30] LABS: Hemoglobin A1c 7.1 % (<=5.6)
[2025-04-19 06:37] LABS: Troponin T High Sens 2 HR 385 ng/L (<=22)
[2025-04-19 07:15] LABS: Base Excess -2 mmol/L (-2 to +2); Bicarbonate 22.4 mmol/L (22-26); Blood Gas Specimen Type ART; Comment AIRVO 50L 50%; Mode Not entered; O2 Delivery Device AIRVO; PO2 92 mmHG (75-100); SITE L Radial; SO2 98 % (95-99); Total Carbon Dioxide 23 mmol/L; pCO2 33.2 mmHg (35-45); pH 7.44 (7.35-7.45)
[2025-04-19 08:16] LABS: Reflex Lactate? Y
[2025-04-19 10:28] LABS: Anion Gap 15 (5-15); BUN 69 mg/dL (4-19); BUN/Creat Ratio 24.8 RATIO (10-20); Calcium,Total 9.1 mg/dL (7.6-11.0); Carbon Dioxide 21.1 mmol/L (21.0-32.0); Chloride 101 mmol/L (98-108); Creatinine, Serum 2.79 mg/dL (0.70-1.20); EST Glomerular Filtration Rate 22 (>60); Estimated Creatinine Clearance 18.74 ml/min (50-250); Glucose 447 mg/dL (70-99); Potassium 4.9 mmol/L (3.3-5.1); Sodium Level 137 mmol/L (133-145)
--- NOTE | 2025-04-19 10:28 | CON.PCM.RE_ITS ---
Assessment & Plan Assessment/Plan (1) Hyperkalemia: (2) MADONNA (acute kidney injury): (3) Acute hypoxic respiratory failure: (4) CKD (chronic kidney disease) stage 3, GFR 30-59 ml/min: PLAN: Plan MADONNA superimposed on CKD stage III with baseline creatinine ranging around 1.8 mg/dL. Patient is known to our group from last hospitalization, he developed hypervolemic, oliguric acute kidney injury due to contrast nephropathy versus ATN. Patient became oliguric with worsening kidney function and was started on hemodialysis 04/06 (serum creatinine peak 4.77) and again 04/07. Fortunately for patient renal function improved, volume status improved with fluid removal with dialysis and patient able to come off BiPAP, urine output picked up during hospitalization and did not need dialysis arranged at hospital discharge, temporary HD catheter was removed last admission. Last admission renal ultrasound no hydronephrosis. Patient's creatinine 3.48 at time of hospital discharge on April 10. Yesterday serum creatinine 2.73, this morning his creatinine is 2.79. Potassium also improved with hyperkalemia protocol. Aldactone stopped. Patient is currently n.p.o., when diet resumes can add low potassium diet restrictions. Patient is on Lasix 40 mg IV twice daily. Will continue current Lasix order. No acute indication for renal placement therapy at this time. Patient is nonoliguric, urine output amount not documented but canister is little over shelter full with urine. Will check bladder scan. Labs ordered for morning. Further orders forthcoming as hospitalization evolves, thank you for allowing us to participate in the care of Mr. Fernandes. Assessment and plan reviewed with Dr. Thompson. HPI Consult Data Date of Consult: 04/19/25 HPI Narrative HPI Narrative: SERENA FERNANDES, is a 79 M with past medical history significant for hypertension, CKD stage III with baseline creatinine around 1.8 mg/dL followed by Dr. Solomon in [place], diabetes mellitus, COPD, history of dialysis requiring acute kidney injury who presented emergency room with complaints of shortness of breath. Patient admitted for acute exacerbation of combined systolic and diastolic heart failure and COPD exacerbation. Initially patient was requiring Airvo, he is now on O2 per nasal cannula 6 L. Nephrology consulted in view of history of dialysis requiring MADONNA, elevated creatinine above baseline. Patient reports he has been doing well since hospital discharge but last evening developed worsening shortness of breath and noted worsening lower extremity edema. Patient reports he took Lasix with no improvement in breathing therefore came to ER. Creatinine 2.7 and potassium 5.9 yesterday. This morning creatinine 2.79, potassium improved to 4.9. Patient denies any recent nausea, vomiting or diarrhea. Patient does report that he had Henley in place at time of hospital discharge and recently had that removed few days ago. Patient states he has had no difficulty with urination at home, no dysuria or hematuria. [facility] Medical History Non-STEMI (non-ST elevated myocardial infarction) Bradycardia MADONNA (acute kidney injury) Anemia LV dysfunction Chronic anemia Tobacco use COPD (chronic obstructive pulmonary disease) HLD (hyperlipidemia) HTN (hypertension) BPH (benign prostatic hyperplasia) Chronic low back pain with sciatica Diabetes mellitus, type 2 CKD (chronic kidney disease), stage III Pneumonia COVID Wears glasses Wears dentures Home Medications ?Medication ?Instructions ?Recorded ?Last Taken ?Type amlodipine 10 mg tablet (Norvasc) 10 mg PO 1200 08/12/21 History insulin glargine 100 unit/mL (3 15 unit subcut QPM 03/21 Unknown History mL) subcutaneous pen (Lantus Solostar U-100 Insulin) insulin lispro 100 unit/mL 0 unit subcut TID SLIDING S JENNIFER 08/05/21 Unknown History subcutaneous pen tamsulosin 0.4 mg capsule (Flomax) 0.4 mg PO DAILY [facility] 08/05/21 Unknown History ezetimibe 10 mg tablet 10 mg PO DAILY 04/06/24 Unkn own History metoprolol succinate 25 mg 25 mg PO DAILY 04/06/24 Unk nown History tablet,extended release 24 hr blood sugar diagnostic (Contour 09/12/24 Unknown Hist ory Next Test Strips) hydralazine 50 mg tablet 50 mg PO Q8H 04/03/25 Unknow n History pantoprazole 40 mg tablet,delayed 40 mg PO DAILY #30 t abs 04/10/25 Unknown Rx release spironolactone 25 mg tablet 25 mg PO DAILY 04/19/25 Un known History Allergy/AdvReac Type Severity Reaction Status Date / Time spironolactone AdvReac Intermediate Hyperkalemi Verified 04/19/25 03:10 a Corticosteroids AdvReac Other Verified 04/03/25 00:16 (Glucocorticoids) (steroids) Qjhdtri-KZF-WhI Reductase AdvReac Other Verified 04/03/25 00:16 Inhibitor (Giagemx-Iwi-Eak Reductase Inhibitor) Family History Mother COPD (chronic obstructive pulmonary disease) Father CAD (coronary artery disease) Heart disease Surgical History Hx of cystoscopy Hx of colonoscopy Hx of left cataract extraction Hx of right cataract extraction Social History household members: spouse Smoking Status: Current every day smoker tobacco type: cigarettes alcohol intake: never substance use type: does not use ROS ROS Narrative As in HPI Physical Exam Narrative Alert and oriented x 3, no apparent distress S1, S2, RRR Lungs sound clear anteriorly, diminished breath sounds posterior bases. No rales or rhonchi noted. On O2 6 L per nasal cannula Abdomen soft, rounded, nontender, nondistended Trace edema bilateral lower legs and ankles External Henley in place with clear yellow urine in canister Lab / Micro Data 04/19/25 04:12 04/19/25 04:12 Labs: Laboratory Results - last 24 hr 04/19/25 00:07: WBC 14.0 H, RBC 2.93 L, Hgb 8.8 L, Hct 27.5 L, MCV 93.9, MCH 30.0, MCHC 32.0, RDW Std Deviation 46.1 H, RDW Coeff of Humaira 13.4, Plt Count 289, MPV 11.4, Immature Gran % (Auto) 0.500, Neut % (Auto) 82.3 H, Lymph % (Auto) 10.0 L, [place] % (Auto) 5.7, Eos % (Auto) 1.0, Baso % (Auto) 0.5, Absolute Neuts (auto) 11.5 H, Absolute Lymphs (auto) 1.40, Nucleated RBC % 0, D-Dimer Quant (PE/DVT) 2.17 H*, Sodium 136, Potassium 5.9 H, Chloride 100, Carbon Dioxide 20.9 L, Anion Gap 15, BUN 65 H, Creatinine 2.73 H, Estim Creat Clear Calc 19.84 L, E st GFR (MDRD) Non-Af 23 L, BUN/Creatinine Ratio 23.8 H, Glucose 406 H, Calcium 8.6, Magnesium 2.3 H, [place] [address] H, Procalcitonin 0.10 04/19/25 02:54: POC Glucose 437 H 04/19/25 04:12: WBC 13.5 H, RBC 2.52 L, Hgb 7.5 L, Hct 23.7 L, MCV 94.0, MCH 29.8, MCHC 31.6 L, RDW Std Deviation 46.2 H, RDW Coeff of Humaira 13.4, Plt Count 218, MPV 11.3, Immature Gran % (Auto) 0.600, Neut % (Auto) 94.3 H, Lymph % (Auto) 2.4 L, [place] % (Auto) 2.4, Eos % (Auto) 0.1, Baso % (Auto) 0.2, Absolute Neuts (auto) 12.7 H, Absolute Lymphs (auto) 0.33 L, Nucleated RBC % 0, Sodium 137, Potassium 5.2 H, Chloride 101, Carbon Dioxide 17.8 L, Anion Gap 18 H, BUN 69 H, Creatinine 2.95 H, Estim Creat Clear Calc 17.72 L, Est GFR (MDRD) Non-Af 21 L, BUN/Creatinine Ratio 23.4 H, Glucose 447 H, Hemoglobin A1c 7.1 H, Lactic Acid 4.8 H*, Calcium 9.3, Phosphorus 4.0, Total Bilirubin 0.31, AST 26, ALT 30, Alkaline Phosphatase 76, Troponin T High Sens 394 H* D, [place] [address] H, T otal Protein 5.8 L, Albumin 3.3 L, Globulin 2.5, Albumin/Globulin Ratio 1.3, TSH 1.730 04/19/25 04:56: POC Glucose 403 H 04/19/25 06:15: Troponin T Hi Sens 2 Hr 385 H*, Troponin T Hi Sens 4Hr Cancelled 04/19/25 06:45: Blood Type A POSITIVE, Antibody Screen NEGATIVE Micro: Microbiology 04/19/25 00:25 Mucosa - Nose SARS-CoV-2, Influenza & RSV (PCR) - Final ABG Data ABG results: ABG 04/19/25 04/19/25 03:46 07:12 Specimen Type ART ART Sample Site L Radial L Radial pH 7.45 7.44 Bicarbonate Actual 21.6 L 22.4 Total CO2 23 23 Base Excess -2 -2 O2 Saturation 98 98 O2 % 50.0 ABG pCO2 30.8 L 33.2 L ABG pO2 103 H 92 Chris Test Positive N/A O2 Delivery Device HFNC AIRVO Vent Mode Not entered Not entered Clinical Comments AIRVO 50L 50% Imaging Radiology Impression Chest X-Ray 04/19/25 01:00 IMPRESSION: Increased mild bilateral pleural effusions. Increased passive atelectatic airspace disease of the lower lobes. Increased pulmonary venous congestion and interstitial edema. Enlarged cardiac silhouette. Reading [facility]
[2025-04-19 10:35] LABS: Lactic Acid 2.7 mmol/L (0.0-2.0)
[2025-04-19 10:51] LABS: Troponin T High Sens 4 HR 350 ng/L (<=22)
[2025-04-19] MEDS: Pantoprazole Sodium 40 MG Tablet PO (11:41)
[2025-04-19] MEDS: MethylPREDNISolone 125 MG/2 ML Vial 60 MG IV ×2 (11:41→22:23)
[2025-04-19] MEDS: Metoprolol(XL)Succ 25 MG Tablet PO (11:41)
[2025-04-19] MEDS: amLODIPine 10 MG Tablet PO (11:41)
[2025-04-19] MEDS: Magnesium Chloride 64 MG Delay Rel.Tablet 128 MG PO ×2 (11:41→22:23)
[2025-04-19] MEDS: Ezetimibe 10 MG Tablet PO (11:42)
[2025-04-19 12:17] LABS: Bedside Glucose 376 mg/dL (74-106)
[2025-04-19 14:00] LABS: Bacteria 0 SEEN /hpf (None Seen); Mucous, Urine 0 SEEN /hpf (<or=2+); Red Blood Cells-Urine 0 SEEN /hpf (0-5); Squamous Epithelial Cells - UA 0 SEEN /hpf (0-5); White Blood Cells 0 SEEN /hpf (0-5)
[2025-04-19 14:02] LABS: Color, Urine Yellow (Yellow); Glucose, Dipstick 250 mg/dl (Normal); Ketone-Dipstick Negative (Negative); Leukocyte Esterase-Dipstick Negative /ul (Negative); Nitrite-Dipstick Negative (Negative); Occult Blood-Urine Negative /ul (Negative); Protein-Dipstick 30 mg/dl (Negative); Specific Gravity, Urine 1.015 (1.002-1.030); Urine Bilirubin Dipstick Negative (Negative); Urine Clarity Clear (Clear); Urine Urobilinogen Normal (Normal)
--- NOTE | 2025-04-19 14:08 | CASEMGMT ---
Discharge Planning A list of?HH providers including quality and resource use data and consistent with the patient's preferred geographic region, medical needs, and insurance network was created in [employer] Guide.? This list was provided to the RN ANNIE. Almaz Rodriguez, Discharge Planning Asst.
--- NOTE | 2025-04-19 14:23 | CASEMGMT ---
FIDEL VALENCIA Readmission Chart Review Index Admission: 04/03/25-04/10/25. Dx: RF, COPD Ex, PNA, HF Ex Current: 04/19/25. Dx: AE CHF, AE COPD, Acute Hypoxic RF From the index admission, the patient was discharged home with his . The patient wears home oxygen through [employer] at 2L with exertion. The patient presents to [facility] ER with shortness of breath and lower extremity edema. RNCM to the patient's room at this time. The patient?s daughter and sister are at the bedside. The patient states that he was able to wear his oxygen at home accordingly. However, the patient states that he has been borrowing a portable tank from a friend as [employer] states that they require new oxygen testing and orders sent to be able to give out a new portable tank since the patient has a history of returning the portability. CM to follow. Patient states that he was aware of the discontinued medication including the aspirin until follow-up. Patient states that his PCP appointment was scheduled for tomorrow. The patient states that his GI follow-up appointment was not until next week. The patient states that his nephrology follow-up appointment is coming up on Wednesday. The patient states that he is still not established with a back up worker. The patient states that he was able to manage his diabetes appropriately. The patient states that he received his new prescription for Protonix and was able to take all of his medications as ordered. The patient did not answer the phone for the discharge follow-up phone call. The patient states that he has not smoked at all since he recently quit. Moving forward, the patient states that he plans to be discharged back home with his . Patient states that he would like home healthcare to be established. The patient and the patient?s family agreed that this would be beneficial for the patient. At this time, the patient denies wanting to review a list of local in-network home healthcare agencies and reports that he would prefer to go through [facility]. TC to [facility] who states that they are unable to accept due to being 39 minutes away from their location. FIDEL VALENCIA to provide the patient with a list of home health agencies that are in network with the insurance. Also, patient states that he plans to eventually go through cardiac rehab in [place] through his publicity person Dr. Terrazas. Pt daughter is also requesting the need for a PAP. This FIDEL VALENCIA educated the patient and the patient?s family that the patient would need to follow up and get a sleep study done and can go through his PCP for this as an outpatient. Patient and patient?s family state understanding and deny any further questions or concerns at this time. Pt is now transferring to PCU. Report given to EDGERMAN ANNIE who plans to follow up on potential Palliative Care referral. Tentative plan: Home with skilled home healthcare, oxygen through [employer] through updated O2 testing, with appropriate follow up of plans in place.
--- NOTE | 2025-04-19 14:46 | CASEMGMT ---
FIDEL VALENCIA in to discuss discharge planning with patient and daughter. [facility] list provided to patient, patient and daughter prefer [facility]. FIDEL VALENCIA discussed palliative care and patient and daughter agreeable to consult. Patient and daughter had no further questions or concerns. FIDEL VALENCIA updated DC environmental planning engineer to make referral to [facility], awaiting acceptance. FIDEL VALENCIA updated hospitalist regarding palliative consult, awaiting order. CM will continue to follow this patient and plan for a safe discharge.
[2025-04-19] MEDS: hydrALAZINE 50 MG Tablet PO (15:07)
--- NOTE | 2025-04-19 15:18 | CASEMGMT ---
Addendum entered by Almaz Rodriguez 04/19/25 16:05: [facility] has accepted. Almaz Rodriguez DC Planning Asst. Original Note: Discharge Planning HH referral sent to [facility]. Almaz Rodriguez DC Planning Asst.
[2025-04-19] MEDS: Tamsulosin HCl 0.4 MG Capsule PO (17:22)
[2025-04-19 17:57] LABS: Bedside Glucose 374 mg/dL (74-106)
[2025-04-19 23:31] LABS: Bedside Glucose 393 mg/dL (74-106)
[2025-04-20] VITALS (14 sets, daily range): BP systolic 104–136; BP diastolic 59–69; PULSE 62–88; RESP 15–20; TEMP 36.4–36.9; O2SAT 95–98; BMI 23.6
[2025-04-20] MEDS: hydrALAZINE 50 MG Tablet PO ×2 (06:06→14:54)
[2025-04-20] MEDS: 0.9% Saline Lock 10 ML Syringe IV ×2 (06:06→10:07)
[2025-04-20] MEDS: Insulin Lispro 100 UNIT/ML INSULN.PEN SC ×4 (06:06→22:00)
[2025-04-20 06:57] LABS: Absolute Lymphocyte Count 0.52 X10^3/uL (0.83-4.51); Basophil# 0.01 X10^3/uL; Basophil% 0.1 % (0-1); Hematocrit 24.6 % (40-54); Hemoglobin 7.9 g/dL (13.0-16.5); Lymphocyte # 0.52 X10^3/ul (0.83-4.51); Lymphocyte % 3.5 % (19-41); Mean Corp Hgb Conc 32.1 g/dL (32-36); Mean Corpuscular Hgb 29.9 pg (27.0-32.0); Mean Corpuscular Volume 93.2 fL (80-94); Mean Platelet Vol. 11.6 fl (6.2-12.0); Monocyte# 0.26 X10^3/uL; Monocyte% 1.7 % (0-10); NRBC Flagged by Analyzer 0 % (0-5); Neutrophil # 13.98 X10^3/uL (2.7-7.7); Neutrophil % 93.9 % (47-70); POSITIVE DIFFERENTIAL YES; Platelet Count 216 K/mm3 (150-450); RBC Distribution Width CV 13.6 % (11.6-14.6); Red Blood Count 2.64 M/mm3 (4.6-6.2); White Blood Count 14.9 K/mm3 (4.4-11.0)
[2025-04-20 07:03] LABS: Bedside Glucose 362 mg/dL (74-106)
[2025-04-20 07:26] LABS: ALB/GLOB Ratio 1.5 RATIO (0.9-2.4); AST(SGOT) 21 U/L (<=37); Alanine Aminotransfer ALT/SGPT 27 U/L (<=46); Albumin, Serum 3.7 g/dL (3.4-4.8); Alkaline Phosphatase 78 U/L (40-129); Anion Gap 15 (5-15); BUN 72 mg/dL (4-19); BUN/Creat Ratio 24.4 RATIO (10-20); Calcium,Total 9.1 mg/dL (7.6-11.0); Carbon Dioxide 22.7 mmol/L (21.0-32.0); Chloride 99 mmol/L (98-108); Creatinine, Serum 2.95 mg/dL (0.70-1.20); EST Glomerular Filtration Rate 21 (>60); Estimated Creatinine Clearance 17.72 ml/min (50-250); Globulin 2.5 g/dL (2.2-4.2); Glucose 375 mg/dL (70-99); Potassium 4.7 mmol/L (3.3-5.1); Protein, Total 6.2 g/dL (5.9-8.4); Sodium Level 136 mmol/L (133-145); Total Bilirubin 0.35 mg/dL (0.00-1.30)
[2025-04-20] MEDS: Albuterol 2.5 MG/3 ML VIAL.NEB. INHALATION ×3 (08:30→22:43)
[2025-04-20] MEDS: Magnesium Chloride 64 MG Delay Rel.Tablet 128 MG PO ×2 (10:06→21:59)
[2025-04-20] MEDS: Pantoprazole Sodium 40 MG Tablet PO (10:06)
[2025-04-20] MEDS: Ezetimibe 10 MG Tablet PO (10:06)
[2025-04-20] MEDS: Isosorbide Mononitrate 30 MG Tablet PO (10:06)
[2025-04-20] MEDS: Furosemide 40 MG/4 ML Vial IV (10:07)
[2025-04-20] MEDS: MethylPREDNISolone 125 MG/2 ML Vial 60 MG IV ×2 (10:07→21:59)
--- NOTE | 2025-04-20 10:39 | PN.RENAL_ITS ---
Subjective Subjective Still appears somewhat dyspneic. Objective Data Objective Data Vital Signs: Vital Signs Temp Pulse Resp BP Pulse Ox O2 Del Method O2 Flow Rate 98.0 F 85 18 136/69 H 98 Nasal Cannula 4 04/20/25 08:15 04/20/25 08:30 04/20/25 08:30 04/20/25 08:15 04/20/25 09:13 04/20/25 08:30 04/20/25 09:13 FiO2 45 04/19/25 09:21 Oxygen Flow Rate (L/min) 4 Oxygen Delivery Method Nasal Cannula Weight: 66.451 kg Body Mass Index (BMI) 23.6 Intake & Output: Intake and Output for Last 24 Hours 04/18/25 04/19/25 04/20/25 23:59 23:59 23:59 Intake Total 130 / 130 Output Total 450 / 950 700 / 700 Balance -320 / -820 -700 / -700 Lab / Micro Data 04/20/25 06:16 04/20/25 06:16 Labs: Laboratory Results - last 24 hr 04/19/25 09:30: Troponin T Hi Sens 4Hr 350 H* 04/19/25 11:46: POC Glucose 376 H 04/19/25 13:50: Urine Color Yellow, Urine Clarity Clear, Urine pH 6.0, Ur Specific [place] 1.015, Urine Protein 30 H, Urine Glucose (UA) 250 H, Urine Ketones Negative, Urine Occult Blood Negative, Urine Nitrite Negative, Urine Bilirubin Negative, Urine Urobilinogen Normal, Ur Leukocyte Esterase Negative, Urine RBC 0 SEEN, Urine WBC 0 SEEN, Ur Squamous Epith Cells 0 SEEN, Urine Bacteria 0 SEEN, Urine Mucus 0 SEEN 04/19/25 17:19: POC Glucose 374 H 04/19/25 23:07: POC Glucose 393 H 04/20/25 06:05: POC Glucose 362 H 04/20/25 06:16: WBC 14.9 H, RBC 2.64 L, Hgb 7.9 L, Hct 24.6 L, MCV 93.2, MCH 29.9, MCHC 32.1, RDW Std Deviation 46.0 H, RDW Coeff of Humaira 13.6, Plt Count 216, MPV 11.6, Immature Gran % (Auto) 0.800, Neut % (Auto) 93.9 H, Lymph % (Auto) 3.5 L, [place] % (Auto) 1.7, Eos % (Auto) 0.0, Baso % (Auto) 0.1, Absolute Neuts (auto) 14.0 H, Absolute Lymphs (auto) 0.52 L, Nucleated RBC % 0, Sodium 136, Potassium 4.7, Chloride 99, Carbon Dioxide 22.7, Anion Gap 15, BUN 72 H, Creatinine 2.95 H , Estim Creat Clear Calc 17.72 L, Est GFR (MDRD) Non-Af 21 L, BUN/Creatinine Ratio 24.4 H, Glucose 375 H, Calcium 9.1, Total Bilirubin 0.35, AST 21, ALT 27, Alkaline Phosphatase 78, Total Protein 6.2, Albumin 3.7, Globulin 2.5, Albumin/Globulin Ratio 1.5 Micro: Microbiology 04/19/25 00:25 Mucosa - Nose SARS-CoV-2, Influenza & RSV (PCR) - Final Radiography Diagnostic Testing: Radiology Impression Lung Scan-VQ NM 04/19/25 03:18 IMPRESSION: Low probability scan for pulmonary embolism. Findings suggestive of airway trapping/asthma. Reading Location: [facility] Venous Doppler Study 04/19/25 04:03 Interpretation Summary Deep veins of the lower extremities are bilaterally patent and compressible segmentally. There is no evidence of deep vein thrombosis on either side. Valvular competence appears intact within the proximal deep venous systems bilaterally. The great saphenous veins appear bilaterally patent and compressible segmentally. Ordering Physician: Tj Rizzo Referring Physician: Ryley Montenegro Performed By: Jennifer Ambriz, RDCS, RVT Physical Exam Narrative Alert and oriented x 3, no apparent distress S1, S2, RRR Lungs sound clear anteriorly, diminished breath sounds posterior bases. No rales or rhonchi noted. On O2 6 L per nasal cannula Abdomen soft, rounded, nontender, nondistended Trace edema bilateral lower legs and ankles External Henley in place with clear yellow urine in canister Assessment & Plan Assessment/Plan (1) Hyperkalemia: (2) MADONNA (acute kidney injury): (3) Acute hypoxic respiratory failure: (4) CKD (chronic kidney disease) stage 3, GFR 30-59 ml/min: PLAN: Plan Acute renal failure CKD stage IIIb Transiently required dialysis Baseline creatinine is around 1.8. Last admission presumably MADONNA first from ATN. Recovered from dialysis, urine output improved. Discharged home, came back with worsening shortness of breath. Chest x-ray looks pretty wet. Symptomatically better with IV Lasix. Continue IV Lasix 40 mg twice a day. Add metolazone for today. Discussed with family at bedside
--- NOTE | 2025-04-20 10:45 | CASEMGMT ---
FIDEL VALENCIA received order for palliative consult. FIDEL VALENCIA completed palliative screening tool and referral sent to [facility] Palliative.
--- NOTE | 2025-04-20 11:28 | PN.HOSP_ITS ---
Reason for Visit Reason for Visit: Diagnoses Elevated white blood cell count, unspecified (04/19/25) Type 2 diabetes mellitus with hyperglycemia (04/19/25) Acidosis, unspecified (04/19/25) Hyperkalemia (04/19/25) Acute on chronic combined systolic (congestive) and diastolic (congestive) heart failure (04/19/25) Heart failure, unspecified (04/19/25) Chronic obstructive pulmonary disease with (acute) exacerbation (04/19/25) Acute respiratory failure with hypoxia (04/19/25) Acute kidney failure, unspecified (04/19/25) Chronic kidney disease, stage 3 unspecified (04/19/25) Chronic kidney disease, stage 4 (severe) (04/19/25) Weakness (04/19/25) Other specified abnormal findings of blood chemistry (04/19/25) 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 I talked to the patient's daughter extensively who was in the room at the time of my exam. Patient's echocardiogram that was done recently shows an EF of 40%, his last echocardiogram here was done October of last year and it showed an EF of 60%. There is also a heart catheterization scanned in from an outside hospital in October 2024 which showed that the patient did have occlusive coronary disease but they elected to treat it medically. Patient's daughter stated the reason why they did not stent the patient was that they did not want to subject him to dye which would possibly affect his kidneys. I talked with Dr. Campbell (cardiology) today about his care and placed a formal consult for him to see the patient, he requested that I take the patient off amlodipine, placed the patient on Imdur 30 mg daily and stop the patient's metoprolol and placed him on carvedilol 25 mg twice daily. I went over this with the patient's daughter and the patient and told them that cardiology would be seeing them today. Nephrology is due to see the patient today, I talked with the nurse practitioner that works with nephrology about the patient's care and verified that they wanted the patient's Lasix dose to be 40 mg IV twice a day. Patient's creatinine today is slightly elevated from yesterday's creatinine. Objective Data Objective Data Vital Signs: Vital Signs Temp Pulse Resp BP Pulse Ox O2 Del Method O2 Flow Rate 98.0 F 85 18 136/69 H 98 Nasal Cannula 4 04/20/25 08:15 04/20/25 08:30 04/20/25 08:30 04/20/25 08:15 04/20/25 09:13 04/20/25 08:30 04/20/25 09:13 FiO2 45 04/19/25 09:21 Oxygen Flow Rate (L/min) 4 Oxygen Delivery Method Nasal Cannula Weight: 66.451 kg Body Mass Index (BMI) 23.6 Intake & Output: Intake and Output for Last 24 Hours 04/18/25 04/19/25 04/20/25 23:59 23:59 23:59 Intake Total 130 / 130 Output Total 450 / 950 700 / 700 Balance -320 / -820 -700 / -700 Lab / Micro Data 04/20/25 06:16 04/20/25 06:16 Labs: Laboratory Results - last 24 hr 04/19/25 11:46: POC Glucose 376 H 04/19/25 13:50: Urine Color Yellow, Urine Clarity Clear, Urine pH 6.0, Ur Specific [place] 1.015, Urine Protein 30 H, Urine Glucose (UA) 250 H, Urine Ketones Negative, Urine Occult Blood Negative, Urine Nitrite Negative, Urine Bilirubin Negative, Urine Urobilinogen Normal, Ur Leukocyte Esterase Negative, Urine RBC 0 SEEN, Urine WBC 0 SEEN, Ur Squamous Epith Cells 0 SEEN, Urine Bacteria 0 SEEN, Urine Mucus 0 SEEN 04/19/25 17:19: POC Glucose 374 H 04/19/25 23:07: POC Glucose 393 H 04/20/25 06:05: POC Glucose 362 H 04/20/25 06:16: WBC 14.9 H, RBC 2.64 L, Hgb 7.9 L, Hct 24.6 L, MCV 93.2, MCH 29.9, MCHC 32.1, RDW Std Deviation 46.0 H, RDW Coeff of [place] 13.6, Plt Count 216, MPV 11.6, Immature Gran % (Auto) 0.800, Neut % (Auto) 93.9 H, Lymph % (Auto) 3.5 L, [place] % (Auto) 1.7, Eos % (Auto) 0.0, Baso % (Auto) 0.1, Absolute Neuts (auto) 14.0 H, Absolute Lymphs (auto) 0.52 L, Nucleated RBC % 0, Sodium 136, Potassium 4.7, Chloride 99, Carbon Dioxide 22.7, Anion Gap 15, BUN 72 H, Creatinine 2.95 H , Estim Creat Clear Calc 17.72 L, Est GFR (MDRD) Non-Af 21 L, BUN/Creatinine Ratio 24.4 H, Glucose 375 H, Calcium 9.1, Total Bilirubin 0.35, AST 21, ALT 27, Alkaline Phosphatase 78, Total Protein 6.2, Albumin 3.7, Globulin 2.5, Albumin/Globulin Ratio 1.5 Micro: Microbiology 04/19/25 00:25 Mucosa - Nose SARS-CoV-2, Influenza & RSV (PCR) - Final Radiography Diagnostic Testing: Radiology Impression Lung Scan-VQ NM 04/19/25 03:18 IMPRESSION: Low probability scan for pulmonary embolism. Findings suggestive of airway trapping/asthma. Reading Location: [facility]1 Venous Doppler Study 04/19/25 04:03 Interpretation Summary Deep veins of the lower extremities are bilaterally patent and compressible segmentally. There is no evidence of deep vein thrombosis on either side. Valvular competence appears intact within the proximal deep venous systems bilaterally. The great saphenous veins appear bilaterally patent and compressible segmentally. Ordering Physician: Tj Rizzo Referring Physician: Ryley Montenegro Performed By: Jennifer Ambriz, NATHANCS, RVT Physical Exam Const alert, oriented x3 and no apparent distress Constitutional Narrative: Patient appears stated age General Appearance: cooperative, well kempt and well developed Orientation / Consciousness: awake, oriented to person, oriented to place and oriented to time HEENT normocephalic, head/scalp atraumatic and moist oral mucous membranes Eyes PERRL, EOMs intact bilaterally and conjunctivae normal Neck supple, no JVD, thyroid normal and no carotid bruits General: trachea midline Resp normal respiratory effort, no retractions and no use of accessory muscles Resp Narrative: Breath sounds are diminished bilaterally, there is some inspiratory rales at the left base noted Auscultation: Negative for rales, rhonchi or wheezes Cardio regular rate, regular rhythm, S1 normal heart sound, S2 normal heart sound, no murmurs, no rub and no gallops GI normal to inspection, nondistended, normoactive bowel sounds, soft to palpation, non-tender and non-distended Extremity Extremity Narrative: There was +1 mm pitting edema noted bilaterally over the lower extremities Skin no rashes or lesions noted General Skin Exam: no breakdown Neuro oriented x3, CN's II-XII intact bilaterally, moves all extremities, no focal motor deficits and no sensory deficits noted Sensorium / Orientation: awake and alert Speech: speech normal Psych affect normal Assessment & Plan Assessment/Plan (1) MADONNA (acute kidney injury): PLAN: Plan 1. Acute exacerbation of chronic systolic congestive heart failure-patient will remain on IV furosemide at this time, cardiology will see the patient in consultation and medications changes were made as outlined previously. #2 acute kidney injury on a backdrop of stage IV chronic kidney disease- nephrology will see the patient today, complicates care, management, recovery, and prognosis #3 chronic hypoxic respiratory failure-secondary to chronic systolic heart failure and suspected COPD-patient is on 2 L continuous oxygen at home, his pulse ox will be monitored here #4 probable chronic obstructive pulmonary disease-according to the patient's daughter, patient has never had pulmonary function tests performed, he will need follow-up as an outpatient #5 type 2 diabetes-patient's blood sugars will be monitored, sliding scale insulin will be administered as indicated #6 BPH-patient is on Flomax Total clinical time spent by myself addressing the patient's medical issues, reviewing all of his data, and collaborating with the patient's care team: 50 minutes Charges/Coding Visit Charges Inpatient E&M: 11993 Subs Hosp L3
[2025-04-20 12:13] LABS: Bedside Glucose 391 mg/dL (74-106)
--- NOTE | 2025-04-20 12:31 | PCM.CONS.C ---
Assessment & Plan Assessment/Plan (1) CHF exacerbation: QUALIFIERS: Heart failure type: combined systolic and diastolic Qualified Code(s): I50.43 - Acute on chronic combined systolic (congestive) and diastolic (congestive) heart failure PLAN: Patient has what appears to be a combination of systolic and diastolic heart failure. His ejection fraction has dropped from 60% back in September 20 to 40% in April 2025. He does have known diffuse atherosclerotic disease that has been treated medically. The patient denies any definitive ischemic events. His enzymes are mildly positive in the 300 range but are declining. He did present with respiratory distress and with his known diffuse atherosclerotic disease it is highly likely this is a demand type ischemic event. It is also likely that he has had progressive deterioration of his LV function related to his diffuse distal vessel disease. The patient was not felt to be a surgical or intervention candidate at the time of his catheterization October 2024 at [facility] in [place]. Once we have him compensated I recommend he be reevaluated by his primary filter tank tender helper for further long-term management treatment options. Given the patient's lower extremity edema would recommend we discontinue the amlodipine, switch his metoprolol to Coreg 25 mg twice daily for better blood pressure control with monitoring of his heart rate, continue the hydralazine but add nitrates for better afterload reduction therapy. I would recommend we decrease his Lasix to 40 mg IV once a day given his bump in his creatinine and declining renal function over the last 24 hours. It appears even he may be relatively intravascularly depleted. I will discuss this in detail with the hospitalist service. (2) CKD (chronic kidney disease), stage IV: PLAN: Estimated GFR is down to 21. Will decrease Lasix to once a day. The patient had been on 40 mg twice daily in his home environment up until his last admission when it was decreased back to once a day. I would recommend we decrease it to once a day 40 mg IV and at discharge she should go home on 40 mg twice daily unless something changes in the interim. (3) ASCVD (arteriosclerotic cardiovascular disease): PLAN: Patient does have diffuse atherosclerotic disease in the LAD and right coronary arteries that are calcified and were not felt to be amenable to surgical or interventional approach at his last catheterization October 2024. I recommend he be reevaluated by his primary filter tank tender helper for further options of possible treatment versus consideration for palliative and/or hospice care. PLAN: Plan 1. Will make medications adjustment as noted above. 2. Change metoprolol to Coreg and monitor for heart rate and blood pressure response. 3. DC amlodipine due to lower extremity edema. 4. Add nitrates to the hydralazine for afterload reduction therapy given the fall and his ejection fraction. 5. Will decrease Lasix to 40 mg IV and at discharge would recommend be discharged on 40 mg p.o. twice daily per his previous treatment. This will depend on his renal function. 6. Will follow-up as you directed. Patient should be reevaluated by his primary filter tank tender helper in 7 to 10 days in [place] after discharge. HPI Consult Data Date of Consult: 04/20/25 HPI Narrative Reason for Consultation: Recurrent CHF admissions HPI Narrative: SERENA ARMANDO, is a 79 M who presents with a sudden decompensation of his respiratory status with significant dyspnea on exertion and lower extremity edema. The patient had been previously admitted within the past month with a similar presentation. The patient carries a history of hypertension, COPD, and both systolic and diastolic heart failure. He also has a history of chronic kidney disease he had a cath back in October 2024. The ostial left main was 40% stenosed, the left anterior descending had an 85% mid LAD lesion that was calcified the first diagonal had moderate diffuse disease throughout the vessel the second diagonal branch was moderate in size with an 80% stenosis and calcified. The circumflex was a small vessel with moderate diffuse disease throughout the vessel. The right coronary was moderate in size ostial right and proximal right 35% stenosed which was a calcified lesion in the mid RCA had an 80% stenosis that was calcified. The patient was recommended for medical therapy. The catheterization was done in [place] at [facility]. The patient denies any anginal type symptoms. He does have a drop in his LV ejection fraction from September 2024 it was 60% April 2025 is down to 40%. This probably represents progression of his coronary artery disease. We have been asked to see the patient to help address titration of his medical therapy. [facility] Medical History Non-STEMI (non-ST elevated myocardial infarction) Bradycardia MADONNA (acute kidney injury) Anemia LV dysfunction Chronic anemia Tobacco use COPD (chronic obstructive pulmonary disease) HLD (hyperlipidemia) HTN (hypertension) BPH (benign prostatic hyperplasia) Chronic low back pain with sciatica Diabetes mellitus, type 2 CKD (chronic kidney disease), stage III Pneumonia COVID Wears glasses Wears dentures Home Medications ?Medication ?Instructions ?Recorded ?Last Taken ?Type amlodipine 10 mg tablet (Norvasc) 10 mg PO 1200 08/05/21 08/12/21 History insulin glargine 100 unit/mL (3 15 unit subcut QPM 08/05/21 Unknown History mL) subcutaneous pen (Lantus Solostar U-100 Insulin) insulin lispro 100 unit/mL 0 unit subcut TID SLIDING SCALE 08/05/21 Unknown History subcutaneous pen tamsulosin 0.4 mg capsule (Flomax) 0.4 mg PO DAILY urination 08/05/21 Unknown History ezetimibe 10 mg tablet 10 mg PO DAILY 04/06/24 Unknown History metoprolol succinate 25 mg 25 mg PO DAILY 04/06/24 Unknown History tablet,extended release 24 hr blood sugar diagnostic (Contour 09/12/24 Unknown History Next Test Strips) hydralazine 50 mg tablet 50 mg PO Q8H 04/03/25 Unknown History pantoprazole 40 mg tablet,delayed 40 mg PO DAILY #30 tabs 04/10/25 Unknown Rx release spironolactone 25 mg tablet 25 mg PO DAILY 04/19/25 Unknown History Allergy/AdvReac Type Severity Reaction Status Date / Time spironolactone AdvReac Intermediate Hyperkalemi Verified 04/19/25 03:10 a Corticosteroids AdvReac Other Verified 04/03/25 00:16 (Glucocorticoids) (steroids) [id number] Reductase AdvReac Other Verified 04/03/25 00:16 Inhibitor (Jznzwsh-Xek-Aax Reductase Inhibitor) Family History Mother COPD (chronic obstructive pulmonary disease) Father CAD (coronary artery disease) Heart disease Surgical History Hx of cystoscopy Hx of colonoscopy Hx of left cataract extraction Hx of right cataract extraction Social History household members: spouse Smoking Status: Current every day smoker tobacco type: cigarettes alcohol intake: never substance use type: does not use ROS Constitutional Constitutional: Reports as per HPI Eyes Eyes: Reports systems reviewed and no addt'l complaints, except as documented ENT HEENT: Reports systems reviewed and no addt'l complaints, except as documented Cardiovascular Cardiovascular: Reports as per HPI Respiratory/Chest Respiratory/Chest: Reports as per HPI Gastrointestinal Gastrointestinal: Reports systems reviewed and no addt'l complaints, except as documented Genitourinary Genitourinary: Reports as per HPI Musculoskeletal Musculoskeletal: Reports as per HPI Integumentary Integumentary: Reports systems reviewed and no addt'l complaints, except as documented Neurologic Neurologic: Reports systems reviewed and no addt'l complaints, except as documented Psychiatric Psychiatric: Reports systems reviewed and no addt'l complaints, except as documented Endocrine Endocrinology: Reports systems reviewed and no addt'l complaints, except as documented Hematologic/Lymphatic Hematologic/Lymphatic: Reports systems reviewed and no addt'l complaints, except as documented Allergic/Immunologic Allergic/Immunologic: Reports systems reviewed and no addt'l complaints, except as documented Physical Exam Narrative Patient is resting comfortably in the recliner. Const alert and oriented x3 HEENT normocephalic Eyes EOMs intact bilaterally Neck Neck Narrative: Noted JVD at 45 degrees in the recliner. The patient has bilateral carotid bruits and bruits in the suprasternal notch. Chest inspection of chest normal Resp normal respiratory effort Auscultation: crackles left base and diminished lung sounds left lower Cardio Rate: regular rate Rhythm: regular rhythm Heart Sounds: S1 normal, S2 normal and murmur systolic I/ soft; Negative for click or gallop GI soft to palpation Extremity General Extremity: edema bilateral lower extremity Details: mild Neuro Neuro Narrative: Alert and oriented x 3 Psych mental status grossly normal Risk Stratification Risk Stratification Applicable: No Charges/Coding Visit Charges Inpatient E&M: 35633 Init Hosp L3 Objective Data Vital Signs: Vital Signs Temp Pulse Resp BP Pulse Ox O2 Del Method O2 Flow Rate 98.0 F 85 18 136/69 H 98 Nasal Cannula 4 04/20/25 08:15 04/20/25 08:30 04/20/25 08:30 04/20/25 08:15 04/20/25 09:13 04/20/25 08:30 04/20/25 09:13 FiO2 45 04/19/25 09:21 Oxygen Flow Rate (L/min) 4 Oxygen Delivery Method Nasal Cannula Weight: 146 lb 8 oz Body Mass Index (BMI) 23.6 Intake & Output: Intake and Output for Last 24 Hours 04/18/25 04/19/25 04/20/25 23:59 23:59 23:59 Intake Total 130 / 130 Output Total 450 / 950 700 / 700 Balance -320 / -820 -700 / -700 Lab / Micro Data Attestation: I reviewed the patient's lab results. 04/20/25 06:16 04/20/25 06:16 Labs: Laboratory Results - last 24 hr 04/19/25 13:50: Urine Color Yellow, Urine Clarity Clear, Urine pH 6.0, Ur Specific [place] 1.015, Urine Protein 30 H, Urine Glucose (UA) 250 H, Urine Ketones Negative, Urine Occult Blood Negative, Urine Nitrite Negative, Urine Bilirubin Negative, Urine Urobilinogen Normal, Ur Leukocyte Esterase Negative, Urine RBC 0 SEEN, Urine WBC 0 SEEN, Ur Squamous Epith Cells 0 SEEN, Urine Bacteria 0 SEEN, Urine Mucus 0 SEEN 04/19/25 17:19: POC Glucose 374 H 04/19/25 23:07: POC Glucose 393 H 04/20/25 06:05: POC Glucose 362 H 04/20/25 06:16: WBC 14.9 H, RBC 2.64 L, Hgb 7.9 L, Hct 24.6 L, MCV 93.2, MCH 29.9, MCHC 32.1, RDW Std Deviation 46.0 H, RDW Coeff of [place] 13.6, Plt Count 216, MPV 11.6, Immature Gran % (Auto) 0.800, Neut % (Auto) 93.9 H, Lymph % (Auto) 3.5 L, [place] % (Auto) 1.7, Eos % (Auto) 0.0, Baso % (Auto) 0.1, Absolute Neuts (auto) 14.0 H, Absolute Lymphs (auto) 0.52 L, Nucleated RBC % 0, Sodium 136, Potassium 4.7, Chloride 99, Carbon Dioxide 22.7, Anion Gap 15, BUN 72 H, Creatinine 2.95 H, Estim Creat Clear Calc 17.72 L, Est GFR (MDRD) Non-Af 21 L, BUN/Creatinine Ratio 24.4 H, Glucose 375 H, Calcium 9.1, Total Bilirubin 0.35, AST 21, ALT 27, Alkaline Phosphatase 78, Total Protein 6.2, Albumin 3.7, Globulin 2.5, Albumin/Globulin Ratio 1.5 04/20/25 11:43: POC Glucose 391 H Micro: Microbiology 04/19/25 00:25 Mucosa - Nose SARS-CoV-2, Influenza & RSV (PCR) - Final Rhythm Strip Rhythm Strip: Sinus Rhythm Rate: 87 Ectopy: PVC(s) Cardiology Labs/Tests 04/19/25 13:50: Urine Color Yellow, Urine Clarity Clear, Urine pH 6.0, Ur Specific [place] 1.015, Urine Protein 30 H, Urine Glucose (UA) 250 H, Urine Ketones Negative, Urine Occult Blood Negative, Urine Nitrite Negative, Urine Bilirubin Negative, Urine Urobilinogen Normal, Ur Leukocyte Esterase Negative, Urine RBC 0 SEEN, Urine WBC 0 SEEN 04/20/25 06:16: WBC 14.9 H, RBC 2.64 L, Hgb 7.9 L, Hct 24.6 L, MCV 93.2, MCH 29.9, MCHC 32.1, Plt Count 216, MPV 11.6, Immature Gran % (Auto) 0.800, Neut % (Auto) 93.9 H, Lymph % (Auto) 3.5 L, [place] % (Auto) 1.7, Eos % (Auto) 0.0, Baso % (Auto) 0.1, Absolute Neuts (auto) 14.0 H, Nucleated RBC % 0, Sodium 136, Potassium 4.7, Chloride 99, Carbon Dioxide 22.7, Anion Gap 15, BUN 72 H, Creatinine 2.95 H, Est GFR (MDRD) Non-Af 21 L, BUN/Creatinine Ratio 24.4 H, Glucose 375 H, Calcium 9.1, Total Bilirubin 0.35 Rhythm: EKG: ECHO: Stress Test: Cardiac Cath: PCI: CT Surgery: Holter monitor: EPS: PPM: CXR: Chest CT Scan: Radiography Diagnostic Testing: Radiology Impression Venous Doppler Study 04/19/25 04:03 Interpretation Summary Deep veins of the lower extremities are bilaterally patent and compressible segmentally. There is no evidence of deep vein thrombosis on either side. Valvular competence appears intact within the proximal deep venous systems bilaterally. The great saphenous veins appear bilaterally patent and compressible segmentally. Ordering Physician: Tj Rizzo Referring Physician: Ryley Montenegro Performed By: Jennifer Ambriz, REDD, RVT
[2025-04-20] MEDS: metOLazone 5 MG Tablet PO (12:39)
--- NOTE | 2025-04-20 13:30 | CASEMGMT ---
Social Work - Advance Directive Follow up Met with patient and on 04.19.25 regarding advance directive validation. Living Will has been provided and is on file now. Daughter, Karoline Talley ([phone]) called this leader writer today to clarify what other documents the hospital would be looking for. Educated to Health Care POA. Karoline will talk with patient's and one of them will reach out to the energy attorney, to see if this has been completed. eyal Ramey are sure if the POAHC has been done, or if just the Living Will. -TERESA Canales
--- NOTE | 2025-04-20 14:10 | CASEMGMT ---
FIDEL CM in to patient's room to update regarding acceptance by [facility] and palliative referral. Patient and inquired about nebulizer at discharge. RN CM informed them that nebulizer could be setup with [employer] for at discharge. Patient and had no further questions. RN CM placed green sheet on chart with script for updated oxygen and nebulizer. CM will continue tot follow this patient and plan for a safe discharge.
[2025-04-20] MEDS: Carvedilol 25 MG Tablet PO (16:40)
[2025-04-20 16:59] LABS: Bedside Glucose 337 mg/dL (74-106)
[2025-04-20] MEDS: Ceftriaxone 1 GM/50 ML BAG IV (21:58)
[2025-04-20] MEDS: Insulin Glargine-YFGN 100 UNIT/ML Pen 15 UNIT SC (22:00)
[2025-04-20 22:29] LABS: Bedside Glucose 241 mg/dL (74-106)
[2025-04-21] VITALS (9 sets, daily range): BP systolic 106–120; BP diastolic 55–80; PULSE 64–111; RESP 16–18; TEMP 36.1–36.8; O2SAT 94–98
[2025-04-21] MEDS: MethylPREDNISolone 125 MG/2 ML Vial 60 MG IV (06:08)
[2025-04-21] MEDS: 0.9% Saline Lock 10 ML Syringe IV ×2 (06:08→21:06)
[2025-04-21] MEDS: Insulin Lispro 100 UNIT/ML INSULN.PEN SC ×4 (06:09→21:09)
[2025-04-21] MEDS: hydrALAZINE 50 MG Tablet PO (06:09)
[2025-04-21 06:35] LABS: Bedside Glucose 150 mg/dL (74-106)
[2025-04-21] MEDS: Albuterol 2.5 MG/3 ML VIAL.NEB. INHALATION ×2 (07:42→19:38)
--- NOTE | 2025-04-21 08:08 | PCM.PN.HOSP ---
Reason for Visit Reason for Visit: Diagnoses Elevated white blood cell count, unspecified (04/19/25) Type 2 diabetes mellitus with hyperglycemia (04/19/25) Acidosis, unspecified (04/19/25) Hyperkalemia (04/19/25) Atherosclerotic heart disease of [place] coronary artery without angina pectoris (04/19/25) Acute on chronic combined systolic (congestive) and diastolic (congestive) heart failure (04/19/25) Heart failure, unspecified (04/19/25) Chronic obstructive pulmonary disease with (acute) exacerbation (04/19/25) Acute respiratory failure with hypoxia (04/19/25) Acute kidney failure, unspecified (04/19/25) Chronic kidney disease, stage 3 unspecified (04/19/25) Chronic kidney disease, stage 4 (severe) (04/19/25) Weakness (04/19/25) Other specified abnormal findings of blood chemistry (04/19/25) 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 Feels better after aerosols. Objective Data Objective Data Vital Signs: Vital Signs Temp Pulse Resp BP Pulse Ox O2 Del Method O2 Flow Rate 36.6 C 70 18 120/66 94 Nasal Cannula 3 04/21/25 06:00 04/21/25 07:45 04/21/25 07:45 04/21/25 06:00 04/21/25 07:45 04/21/25 07:45 04/21/25 07:45 FiO2 45 04/19/25 09:21 Oxygen Flow Rate (L/min) 3 Oxygen Delivery Method Nasal Cannula Weight: 66.451 kg Body Mass Index (BMI) 23.6 Intake & Output: Intake and Output for Last 24 Hours 04/19/25 04/20/25 04/21/25 23:59 23:59 23:59 Intake Total 130 / 130 770 / 890 120 / 120 Output Total 450 / 950 1400 / 1550 950 / 950 Balance -320 / -820 -630 / -660 -830 / -830 Lab / Micro Data 04/20/25 06:16 04/21/25 08:00 Labs: Laboratory Results - last 24 hr 04/20/25 11:43: POC Glucose 391 H 04/20/25 16:39: POC Glucose 337 H 04/20/25 21:50: POC Glucose 241 H 04/21/25 06:07: POC Glucose 150 H Micro: Microbiology 04/19/25 00:25 Mucosa - Nose SARS-CoV-2, Influenza & RSV (PCR) - Final Rhythm Strip Rhythm Strip: Sinus Rhythm Rate: 87 Ectopy: PVC(s) Physical Exam Const alert and no apparent distress HEENT head/scalp atraumatic and moist oral mucous membranes Resp normal respiratory effort and no retractions Resp Narrative: diminished breath sounds, end-expiratory wheezes. Cardio regular rate, regular rhythm, S1 normal heart sound and S2 normal heart sound GI normal to inspection, nondistended, normoactive bowel sounds, soft to palpation, non-tender, non-distended and hepatosplenomegaly Extremity normal to inspection, full ROM and no clubbing, cyanosis or edema Neuro Sensorium / Orientation: awake and alert Assessment & Plan Assessment/Plan (1) HFrEF (heart failure with reduced ejection fraction): PLAN: cards consult. metoprolol changed to carvedilol. On IV furosemide. On spironolactone No ACEi/ARB given CKD. Concern about underlying COPD. He has never had PFTs. Lung sounds are diminished. Will add methylprednisolone. PLAN: Plan CKD IV: stable. Cautious continue IV furosemide. HTN: amlodipine dc'd given LE edema. DM1: glargine and SSI. a1c 7.1% BPH: tamsulosin anemia: stable. VTE prophylaxis: SCDs. DW patient's dtr at bedside. Charges/Coding Visit Charges Inpatient E&M: 50964 Subs Hosp L2
[2025-04-21] MEDS: Pantoprazole Sodium 40 MG Tablet PO (08:20)
[2025-04-21] MEDS: Ezetimibe 10 MG Tablet PO (08:20)
[2025-04-21] MEDS: Magnesium Chloride 64 MG Delay Rel.Tablet 128 MG PO ×2 (08:20→21:06)
[2025-04-21] MEDS: Carvedilol 25 MG Tablet PO ×2 (08:20→16:08)
[2025-04-21] MEDS: Isosorbide Mononitrate 30 MG Tablet PO (08:20)
[2025-04-21] MEDS: Furosemide 40 MG/4 ML Vial IV (08:21)
[2025-04-21 08:42] LABS: Anion Gap 14 (5-15); BUN 80 mg/dL (4-19); BUN/Creat Ratio 27.1 RATIO (10-20); Calcium,Total 8.9 mg/dL (7.6-11.0); Carbon Dioxide 22.4 mmol/L (21.0-32.0); Chloride 102 mmol/L (98-108); Creatinine, Serum 2.94 mg/dL (0.70-1.20); EST Glomerular Filtration Rate 21 (>60); Estimated Creatinine Clearance 17.78 ml/min (50-250); Glucose 136 mg/dL (70-99); Potassium 4.5 mmol/L (3.3-5.1); Sodium Level 138 mmol/L (133-145)
--- NOTE | 2025-04-21 09:11 | PCM.PN.REN ---
Subjective Subjective Sitting up in bed eating breakfast, daughter at bedside. States breathing is better. On O2 3L. States has been urinating, denies feeling any lower abdominal fullness or pain or urgency. Objective Data Objective Data Vital Signs: Vital Signs Temp Pulse Resp BP Pulse Ox O2 Del Method O2 Flow Rate 97.8 F 70 18 120/66 94 Nasal Cannula 3 04/21/25 06:00 04/21/25 07:45 04/21/25 07:45 04/21/25 06:00 04/21/25 07:45 04/21/25 08:35 04/21/25 07:45 FiO2 45 04/19/25 09:21 Oxygen Flow Rate (L/min) 3 Oxygen Delivery Method Nasal Cannula Weight: 66.451 kg Body Mass Index (BMI) 23.6 Intake & Output: Intake and Output for Last 24 Hours 04/19/25 04/20/25 04/21/25 23:59 23:59 23:59 Intake Total 130 / 130 770 / 890 120 / 120 Output Total 450 / 950 1400 / 1550 950 / 950 Balance -320 / -820 -630 / -660 -830 / -830 Lab / Micro Data 04/20/25 06:16 04/21/25 08:00 Labs: Laboratory Results - last 24 hr 04/20/25 11:43: POC Glucose 391 H 04/20/25 16:39: POC Glucose 337 H 04/20/25 21:50: POC Glucose 241 H 04/21/25 06:07: POC Glucose 150 H 04/21/25 08:00: Sodium 138, Potassium 4.5, Chloride 102, Carbon Dioxide 22.4, Anion Gap 14, BUN 80 H, Creatinine 2.94 H, Estim Creat Clear Calc 17.78 L, Est GFR (MDRD) Non-Af 21 L, BUN/Creatinine Ratio 27.1 H, Glucose 136 H, Calcium 8.9 Micro: Microbiology 04/19/25 00:25 Mucosa - Nose SARS-CoV-2, Influenza & RSV (PCR) - Final Rhythm Strip Rhythm Strip: Sinus Rhythm Rate: 87 Ectopy: PVC(s) Physical Exam Narrative Alert and oriented x 3, no apparent distress S1, S2, RRR Lungs sound clear anteriorly. No rales or rhonchi noted. On O2 3 L per nasal cannula Abdomen soft, rounded, nontender, nondistended +edema bilateral lower legs and ankles Assessment & Plan Assessment/Plan (1) Hyperkalemia: (2) MADONNA (acute kidney injury): (3) Acute hypoxic respiratory failure: (4) CKD (chronic kidney disease) stage 3, GFR 30-59 ml/min: PLAN: Plan Acute renal failure CKD stage IIIb, followed by Dr. Clayton Solomon ([place]) Transiently required dialysis Baseline creatinine is around 1.8. Last admission presumably MADONNA from [facility], required short term hemodialysis via non-tunneled HD catheter. Recovered from dialysis, urine output improved. Discharged home (SCr 3.48 04/10), came back with worsening shortness of breath. Chest x-ray looks pretty wet. Symptomatically better with IV Lasix. Creatinine 3.48 on 04/10. For this admission SCr ranging ~2.7-2.9. 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 Lasix dose decreased yesterday, currently on Lasix 40 mg IV daily, weights are down. Breathing improved, currently on 2-3 L O2 nasal cannula. Bps acceptable on hydralazine, imdur, coreg. Nephrology plan discussed with patient and daughter. Assessment and plan reviewed with Dr. Rowley.
--- NOTE | 2025-04-21 09:57 | PCM.PN.CARD ---
Subjective Subjective Patient resting in recumbent position in bed at about 30 degrees. He is eating breakfast with nasal cannula oxygen in place. His daughter was in the room and we did discuss long-term quality of life issues. He is a DNR and does not want any intubation. The patient does note dyspnea on exertion to the bathroom. The patient does have home oxygen therapy but does not have portable oxygen tanks. Objective Data Vital Signs: Vital Signs Temp Pulse Resp BP Pulse Ox O2 Del Method O2 Flow Rate 97.8 F 70 18 120/66 94 Nasal Cannula 3 04/21/25 06:00 04/21/25 07:45 04/21/25 07:45 04/21/25 06:00 04/21/25 07:45 04/21/25 08:35 04/21/25 07:45 FiO2 45 04/19/25 09:21 Oxygen Flow Rate (L/min) 3 Oxygen Delivery Method Nasal Cannula Weight: 146 lb 8 oz Body Mass Index (BMI) 23.6 Intake & Output: Intake and Output for Last 24 Hours 04/19/25 04/20/25 04/21/25 23:59 23:59 23:59 Intake Total 130 / 130 770 / 890 120 / 120 Output Total 450 / 950 1400 / 1550 950 / 950 Balance -320 / -820 -630 / -660 -830 / -830 Lab / Micro Data Attestation: I reviewed the patient's lab results. 04/20/25 06:16 04/21/25 08:00 Labs: Laboratory Results - last 24 hr 04/20/25 11:43: POC Glucose 391 H 04/20/25 16:39: POC Glucose 337 H 04/20/25 21:50: POC Glucose 241 H 04/21/25 06:07: POC Glucose 150 H 04/21/25 08:00: Sodium 138, Potassium 4.5, Chloride 102, Carbon Dioxide 22.4, Anion Gap 14, BUN 80 H, Creatinine 2.94 H, Estim Creat Clear Calc 17.78 L, Est GFR (MDRD) Non-Af 21 L, BUN/Creatinine Ratio 27.1 H, Glucose 136 H, Calcium 8.9 Rhythm Strip Rhythm Strip: Sinus Rhythm Rate: 70 Ectopy: PAC(s) (There is 1 short run of SVT documented.) Cardiology Labs/Tests 06/21/25 08:00: Sodium 138, Potassium 4.5, Chloride 102, Carbon Dioxide 22.4, Anion Gap 14, BUN 80 H, Creatinine 2.94 H, Est GFR (MDRD) Non-Af 21 L, BUN/Creatinine Ratio 27.1 H, Glucose 136 H, Calcium 8.9 Rhythm: EKG: ECHO: Stress Test: Cardiac Cath: PCI: CT Surgery: Holter monitor: EPS: PPM: CXR: Chest CT Scan: Physical Exam Const alert and oriented x3 HEENT normocephalic Eyes EOMs intact bilaterally Neck Neck Narrative: Noted JVD long-term up the neck at 30 degrees. Resp normal respiratory effort Auscultation: diminished lung sounds bilateral lower Cardio Rate: regular rate Rhythm: regular rhythm Heart Sounds: S1 normal and S2 normal; Negative for click, gallop or murmur Extremity General Extremity: edema bilateral lower extremity Details: mild (1-2+) Neuro Neuro Narrative: Alert and oriented x 3 Psych mental status grossly normal Assessment & Plan Assessment/Plan (1) HFrEF (heart failure with reduced ejection fraction): PLAN: LV ejection fraction is known to be 40% on this admission. This is down from 60% back in September 2024. This probably represents slow deterioration of his LV function due to an ischemic cardiomyopathy. He had diffuse atherosclerotic disease on his catheterization in October 2024 which was felt not to be amenable to surgical or percutaneous revascularization. His catheterization and subsequent cardiac care had been added through the [facility] heart group. Will continue with Lasix 40 mg IV, hydralazine 50 mg 3 times daily with Imdur 30 mg daily, and Coreg 25 mg twice daily. The patient appears to be tolerating it from a hemodynamic standpoint. Would recommend slowly trying to progress activities and monitor O2 saturations with activity. The focus should be on keeping the patient as comfortable as possible and trying to get him back to his home environment. After discharge the patient should follow-up with his [place] estimator jewelry in 7 to 10 days. (2) ASCVD (arteriosclerotic cardiovascular disease): PLAN: Patient denies any anginal symptoms. Patient has diffuse three-vessel disease that is heavily calcified and not felt to be amenable to revascularization. The patient is adamant that he wants to be kept comfortable and not have any heroic measures. (3) CKD (chronic kidney disease), stage IV: PLAN: Plan Patient is creatinine clearance is stabilized at 17. His creatinine remains 2.9. We had decreased his Lasix from twice daily to daily starting yesterday. Will continue with the IV Lasix daily. Charges/Coding Visit Charges Inpatient E&M: 08324 Subs Hosp L2
--- NOTE | 2025-04-21 10:56 | CASEMGMT ---
SW was informed by fellow SW that patient would like to complete a Healthcare Power of Time Checker (HCPOA). SW met with patient and his daughter Karoline. SW introduced self and role at [facility]. Patient confirmed he would like to complete HCPOA. SW assisted patient in completing document. Copies were made and given to patient along with original. SW also placed a copy in patient's chart and in medical records basket. Vidya Wong LEAD ETL DEVELOPER CHARLIE
[2025-04-21 12:25] LABS: Bedside Glucose 201 mg/dL (74-106)
[2025-04-21] MEDS: Methylprednisolone Sod Succ 40 MG/ML VIAL IV ×2 (13:47→21:06)
[2025-04-21] MEDS: Tamsulosin HCl 0.4 MG Capsule PO (16:08)
[2025-04-21 16:40] LABS: Bedside Glucose 279 mg/dL (74-106)
[2025-04-21] MEDS: Ceftriaxone 1 GM/50 ML BAG IV (21:07)
[2025-04-21] MEDS: Insulin Glargine-YFGN 100 UNIT/ML Pen 15 UNIT SC (21:08)
[2025-04-21 21:31] LABS: Bedside Glucose 341 mg/dL (74-106)
[2025-04-22] VITALS (8 sets, daily range): BP systolic 115–138; BP diastolic 55–89; PULSE 62–112; RESP 18; TEMP 36.4–36.7; O2SAT 87–100; BMI 23.6
[2025-04-22] MEDS: Albuterol 2.5 MG/3 ML VIAL.NEB. INHALATION ×3 (00:38→12:39)
[2025-04-22 05:18] LABS: Anion Gap 14 (5-15); BUN 89 mg/dL (4-19); Calcium,Total 8.6 mg/dL (7.6-11.0); Chloride 100 mmol/L (98-108); Creatinine, Serum 2.97 mg/dL (0.70-1.20); EST Glomerular Filtration Rate 20 (>60); Glucose 240 mg/dL (70-99); Magnesium 2.7 mg/dL (1.5-2.2); Potassium 4.2 mmol/L (3.3-5.1); Sodium Level 137 mmol/L (133-145)
[2025-04-22] MEDS: Methylprednisolone Sod Succ 40 MG/ML VIAL IV (06:25)
[2025-04-22] MEDS: 0.9% Saline Lock 10 ML Syringe IV (06:25)
[2025-04-22] MEDS: Insulin Lispro 100 UNIT/ML INSULN.PEN SC ×2 (06:25→11:10)
[2025-04-22] MEDS: hydrALAZINE 50 MG Tablet PO (06:27)
[2025-04-22 06:49] LABS: Bedside Glucose 202 mg/dL (74-106)
--- NOTE | 2025-04-22 08:09 | PCM.PN.HOSP ---
Reason for Visit Reason for Visit: Diagnoses Elevated white blood cell count, unspecified (04/19/25) Type 2 diabetes mellitus with hyperglycemia (04/19/25) Acidosis, unspecified (04/19/25) Hyperkalemia (04/19/25) Atherosclerotic heart disease of [place] coronary artery without angina pectoris (04/19/25) Unspecified systolic (congestive) heart failure (04/19/25) Acute on chronic combined systolic (congestive) and diastolic (congestive) heart failure (04/19/25) Heart failure, unspecified (04/19/25) Chronic obstructive pulmonary disease with (acute) exacerbation (04/19/25) Acute respiratory failure with hypoxia (04/19/25) Acute kidney failure, unspecified (04/19/25) Chronic kidney disease, stage 3 unspecified (04/19/25) Chronic kidney disease, stage 4 (severe) (04/19/25) Weakness (04/19/25) Other specified abnormal findings of blood chemistry (04/19/25) 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 Anxious to go home. Objective Data Objective Data Vital Signs: Vital Signs Temp Pulse Resp BP Pulse Ox O2 Del Method O2 Flow Rate 36.7 C 67 18 119/73 95 Nasal Cannula 2 04/22/25 03:00 04/22/25 06:27 04/22/25 03:43 04/22/25 06:27 04/22/25 03:00 04/22/25 03:00 04/22/25 03:00 FiO2 45 04/19/25 09:21 Oxygen Flow Rate (L/min) 2 Oxygen Delivery Method Nasal Cannula Weight: 66.45 kg Body Mass Index (BMI) 23.6 Intake & Output: Intake and Output for Last 24 Hours 04/20/25 04/21/25 04/22/25 23:59 23:59 23:59 Intake Total 770 / 890 1010 / 1010 60 / 60 Output Total 1400 / 1550 1700 / 1700 250 / 250 Balance -630 / -660 -690 / -690 -190 / -190 Lab / Micro Data 04/20/25 06:16 04/22/25 03:49 Labs: Laboratory Results - last 24 hr 04/21/25 08:00: Sodium 138, Potassium 4.5, Chloride 102, Carbon Dioxide 22.4, Anion Gap 14, BUN 80 H, Creatinine 2.94 H, Estim Creat Clear Calc 17.78 L, Est GFR (MDRD) Non-Af 21 L, BUN/Creatinine Ratio 27.1 H, Glucose 136 H, Calcium 8.9 04/21/25 11:51: POC Glucose 201 H 04/21/25 16:05: POC Glucose 279 H 04/21/25 21:08: POC Glucose 341 H 04/22/25 03:49: Sodium 137, Potassium 4.2, Chloride 100, Carbon Dioxide 23.0, Anion Gap 14, BUN 89 H, Creatinine 2.97 H, Estim Creat Clear Calc 17.60 L, Est GFR (MDRD) Non-Af 20 L, BUN/Creatinine Ratio 30.0 H, Glucose 240 H, Calcium 8.6, Magnesium 2.7 H 04/22/25 06:24: POC Glucose 202 H Micro: Microbiology 04/21/25 09:30 Stool Stool Occult Blood (MINE) - Final Occult Blood Positive 04/19/25 00:25 Mucosa - Nose SARS-CoV-2, Influenza & RSV (PCR) - Final Rhythm Strip Rhythm Strip: Sinus Rhythm Rate: 70 Ectopy: PAC(s) (There is 1 short run of SVT documented.) Physical Exam Const alert and no apparent distress HEENT head/scalp atraumatic and moist oral mucous membranes Resp normal respiratory effort and no retractions Resp Narrative: diminished overall, but improved aeration. Cardio regular rate, regular rhythm, S1 normal heart sound and S2 normal heart sound GI normal to inspection, nondistended, normoactive bowel sounds, soft to palpation, non-tender and non-distended Neuro Sensorium / Orientation: awake and alert Assessment & Plan Assessment/Plan (1) HFrEF (heart failure with reduced ejection fraction): PLAN: cards following. metoprolol changed to carvedilol. On IV furosemide. On spironolactone No ACEi/ARB given CKD. (2) COPD exacerbation: PLAN: suspected. He has never been formerly tested with PFTs, but does have an extensive smoking history. on methylpred and BDs. Plan to discharge with prednisone burst, albuterol nebs and MDI He has been advised to follow up with pulmonary as outpt. PLAN: Plan CKD IV: stable. Cautious continue IV furosemide. HTN: amlodipine dc'd given LE edema. DM1: glargine and SSI. a1c 7.1% BPH: tamsulosin anemia: stable. Heme positive stools, which were positive last admission earlier this month. Hemoglobin has remained stable. Would defer GI evaluation to outpt given the stability and current respiratory issues. VTE prophylaxis: SCDs. Disposition: DC home. Patient will need 2 L of oxygen continuous. I have reviewed the oxygen testing, and this patient qualifies for the home equipment and portability. The patient is mobile in the home and the community.
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
[2025-04-22] MEDS: Carvedilol 25 MG Tablet PO (11:09)
[2025-04-22] MEDS: Pantoprazole Sodium 40 MG Tablet PO (11:09)
[2025-04-22] MEDS: Ezetimibe 10 MG Tablet PO (11:09)
[2025-04-22] MEDS: Isosorbide Mononitrate 30 MG Tablet PO ×2 (11:09→11:10)
[2025-04-22] MEDS: Furosemide 40 MG/4 ML Vial IV (11:18)
--- NOTE | 2025-04-22 13:01 | PCM.DC.SUM ---
Providers Date of Admission: 04/19/25 Primary Care Physician: Ryley Montenegro MD Consultations 04/19/25 04:03 Consult: Nephrology Routine Consulting Provider: Denisha Thompson Reason for Consult: MADONNA on CKD; stage IV with Hyperkalemia plus recent HD. EMERGENT Consult: No Notified: Yes Date Notified: 04/19/25 Time Notified: 06:27 Method of Notification: Answering Service 04/20/25 09:07 Consult: Cardiology Routine Consulting Provider: Breezy Campbell Reason for Consult: CHF EMERGENT Consult: No Notified: Yes Date Notified: 04/20/25 Time Notified: 09:07 Method of Notification: Verbal Reason For Visit: AE CHF, AE COPD, ACUTE HYPOXIC RESPIRATORY FAILURE Diagnosis Discharge Diagnosis (1) HFrEF (heart failure with reduced ejection fraction): Status: Acute Code(s): I50.20 - Unspecified systolic (congestive) heart failure Plan: cards following. metoprolol changed to carvedilol. On IV furosemide. On spironolactone No ACEi/ARB given CKD. (2) COPD exacerbation: Status: Chronic Code(s): J44.1 - Chronic obstructive pulmonary disease with (acute) exacerbation Plan: suspected. He has never been formerly tested with PFTs, but does have an extensive smoking history. on methylpred and BDs. Plan to discharge with prednisone burst, albuterol nebs and MDI He has been advised to follow up with pulmonary as outpt. Plan CKD IV: stable. Cautious continue IV furosemide. HTN: amlodipine dc'd given LE edema. DM1: glargine and SSI. a1c 7.1% BPH: tamsulosin anemia: stable. Heme positive stools, which were positive last admission earlier this month. Hemoglobin has remained stable. Would defer GI evaluation to outpt given the stability and current respiratory issues. VTE prophylaxis: SCDs. Disposition: DC home. Patient will need 2 L of oxygen continuous. I have reviewed the oxygen testing, and this patient qualifies for the home equipment and portability. The patient is mobile in the home and the community. Medications at Discharge Home Medications insulin glargine 100 unit/mL (3 mL) subcutaneous pen (Lantus Solostar U-100 Insulin) 15 unit subcut QPM 08/05/21 insulin lispro 100 unit/mL subcutaneous pen 0 unit subcut TID SLIDING SCALE 08/05/21 tamsulosin 0.4 mg capsule (Flomax) 0.4 mg PO DAILY urination 08/05/21 ezetimibe 10 mg tablet 10 mg PO DAILY 04/06/24 blood sugar diagnostic (Contour Next Test Strips) 09/12/24 hydralazine 50 mg tablet 50 mg PO Q8H 04/03/25 pantoprazole 40 mg tablet,delayed release 40 mg PO DAILY #30 tabs 04/10/25 albuterol sulfate 2.5 mg/3 mL (0.083 %) solution for nebulization 2.5 mg (3 mL) inhalation Q2H PRN PRN SOB &/OR WHEEZING 30 days #180 mL 04/22/25 albuterol sulfate 90 mcg/actuation breath activated powder inhaler (ProAir RespiClick) 2 inh inhalation Q6H PRN shortness of breath or wheezing #1 ea 04/22/25 carvedilol 25 mg tablet 25 mg PO BIDCM #60 tabs 04/22/25 furosemide 40 mg tablet 40 mg PO BIDLX #60 tabs 04/22/25 isosorbide mononitrate 30 mg tablet,extended release 24 hr 30 mg PO DAILY #30 tabs 04/22/25 nebulizer and compressor #1 ea 04/22/25 prednisone 20 mg tablet 40 mg (2 x 20 mg) PO DAILY #10 tabs 04/22/25 Hospital Course Procedures None Summary of Care Provided Minutes Spent on Discharge: 35 Hospital Course: Patient presents with shortness of breath. Also concerned he may have heart failure and so they started on IV furosemide and cardiology was consulted. Creatinine did go up but remained stable so his furosemide was adjusted to daily from twice daily down to oral. More concerning is that patient may have underlying, undiagnosed COPD. Patient has a heavy smoking history. Patient was started on bronchodilators as well as Solu-Medrol and did have improvement and did have improved aeration. So I feel some of his breathing may be related with undiagnosed COPD. He will be discharged with prednisone burst, nebulizer, aerosols. Weight / BMI Weight Weight: 66.45 kg Body Mass Index (BMI) 23.6 ABG / Lab / Microbiology Data 04/20/25 06:16 04/22/25 03:49 Laboratory: Laboratory Results - last 24 hr 04/21/25 16:05: POC Glucose 279 H 04/21/25 21:08: POC Glucose 341 H 04/22/25 03:49: Sodium 137, Potassium 4.2, Chloride 100, Carbon Dioxide 23.0, Anion Gap 14, BUN 89 H, Creatinine 2.97 H, Estim Creat Clear Calc 17.60 L, Est GFR (MDRD) Non-Af 20 L, BUN/Creatinine Ratio 30.0 H, Glucose 240 H, Calcium 8.6, Magnesium 2.7 H 04/22/25 06:24: POC Glucose 202 H Microbiology: Microbiology 04/21/25 09:30 Stool Stool Occult Blood (MINE) - Final Occult Blood Positive 04/19/25 00:25 Mucosa - Nose SARS-CoV-2, Influenza & RSV (PCR) - Final D/C Instructions Discharge Diet: Low fat / Low cholesterol and - (1.5 L (50 ounces) of fluid per day.) DC O2, CPAP, BIPAP Needs Home O2 Discharge instructions: Yes Type of respiratory needs?: Oxygen Oxygen frequency: Continuous Continuous oxygen liters per minute: 2 DC home with Oxygen: Yes Home O2 MD Review: I have reviewed the oxygen testing, and the patient qualifies for home oxygen equipment and portability. The patient is mobile in the home and the community. Meaningful Use Info Meaningful Use Meaningful Use Diagnoses (Choose all that apply): CHF CHF PASCALE/ARB ordered at discharge?: No Reason PASCALE/ARB not ordered?: Worsening renal disease Documented LVEF (%): 40 Ischemic Stroke Statin Dosing Therapy Reference: STATIN DOSE THERAPY REFERENCE: * Patients > 75 years receive moderate or high dose statin therapy. * Patients 75 years or YOUNGER should receive HIGH intensity statin dose unless contraindicated. You will be required to document reason for non-treatment if statin daily dose does not meet guidelines. HIGH DOSE STATIN THERAPY DAILY Atorvastatin > than or = to 40 mg Rosuvastatin > than or = to 20 mg Amlodipine + Atorvastatin > than or = to 2.5/40 mg Ezetimibe + Simvastatin 10/80 mg Simvastatin 80mg Discharge Plan Admission Admit Date/Time: 04/19/25 03:06 Primary Reason for Your Visit: CHF exacerbation Attending Provider: Ez Fonseca Primary Care Provider: Ryley Montenegro Consulting Providers: Tj Rizzo; Denisha Thompson; Jose Moore; Breezy Campbell Instructions Additional Instructions / Restrictions: You had fluid buildup related with heart failure but also feel that you have some underlying lung disease such as COPD. I do recommend a follow-up with pulmonology to have formal test (pulmonary function test) to see if you do have underlying COPD or asthma. Discharge Orders/Prescriptions Prescriptions: New albuterol sulfate 2.5 mg /3 mL (0.083 %) Solution For Nebulization 2.5 mg inhalation Q2H PRN PRN (Reason: SOB &/OR WHEEZING) 30 Days Qty: 180 0RF furosemide 40 mg Tablet 40 mg PO BIDLX Qty: 60 0RF carvedilol 25 mg Tablet 25 mg PO BIDCM Qty: 60 0RF isosorbide mononitrate 30 mg Tablet Extended Release 24 Hr 30 mg PO DAILY Qty: 30 0RF prednisone 20 mg tablet 40 mg PO DAILY Qty: 10 0RF ProAir RespiClick 90 mcg/actuation aerosol powdr breath activated 2 inh inhalation Q6H PRN (Reason: shortness of breath or wheezing) Qty: 1 0RF (DME) nebulizer and compressor Device See Rx Instructions .Route Qty: 1 0RF Rx Instructions: As directed Continued ezetimibe 10 mg tablet 10 mg PO DAILY tamsulosin [Flomax] 0.4 mg Capsule 0.4 mg PO DAILY insulin lispro 100 unit/mL Insulin Pen 0 unit SUBCUT TID insulin glargine [Lantus Solostar U-100 Insulin] 100 unit/mL (3 mL) Insulin Pen 15 unit SUBCUT QPM hydralazine 50 mg tablet 50 mg PO Q8H pantoprazole 40 mg tablet,delayed release (DR/EC) 40 mg PO DAILY Qty: 30 2RF (DME) Contour Next Test Strips Strip MISCELLANEOUS 4X/DAY Discontinued metoprolol succinate 25 mg tablet extended release 24 hr 25 mg PO DAILY amlodipine [Norvasc] 10 mg Tablet 10 mg PO 1200 spironolactone 25 mg tablet 25 mg PO DAILY Referrals / Follow Up: [facility] [Provider Group] - Within 1 Month Ryley Montenegro MD [Primary Care Provider] - Within 2 Weeks Disposition Disposition (needs filled in before D/C Order can be placed): Home, Self Care Charges/Coding Visit Charges Inpatient E&M: 77024 Disch Hosp >30min
[2025-04-22 17:26] LABS: Bedside Glucose 246 mg/dL (74-106)
--- NOTE | 2025-04-23 14:35 | CASEMGMT ---
FIDEL VALENCIA received notification from [employer]. ProAir RespiClick was rejected and requiring prior auth. FIDEL VALENCIA called [facility] and medication is for albuterol inhaler. FIDEL VALENCIA requested formulary interchanged for albuterol inhaler, per Madie, pharmacist, interchange was accepted by insurance. Per Madie, they will notify patient. FIDEL VALENCIA updated hospitalist.
== END 2025-04-22 14:19 | disposition home or self-care (01) | DRG 291 ==
LOC: ED 04-19 02:27 → ICU 04-19 03:03 → PCU 04-19 14:00
PROVIDERS: Family Medicine; Nurse Practitioner Adult Health; Admitting Provider Internal Medicine; Emergency Provider Emergency Medicine; PCP Family Medicine
DX: I13.0 Hypertensive heart and chronic kidney disease with heart failure and stage 1 through stage 4 chronic kidney disease, or unspecified chronic kidney disease (principal); J96.01 Acute respiratory failure with hypoxia; I50.43 Acute on chronic combined systolic (congestive) and diastolic (congestive) heart failure; I24.89 Other forms of acute ischemic heart disease; E87.20 Acidosis, unspecified; J44.1 Chronic obstructive pulmonary disease with (acute) exacerbation; N18.4 Chronic kidney disease, stage 4 (severe); N17.9 Acute kidney failure, unspecified; E11.22 Type 2 diabetes mellitus with diabetic chronic kidney disease; D53.9 Nutritional anemia, unspecified; Z66 Do not resuscitate; E11.65 Type 2 diabetes mellitus with hyperglycemia; F17.210 Nicotine dependence, cigarettes, uncomplicated; E78.5 Hyperlipidemia, unspecified; I25.10 Atherosclerotic heart disease of native coronary artery without angina pectoris; Z79.4 Long term (current) use of insulin; E87.5 Hyperkalemia; K21.9 Gastro-esophageal reflux disease without esophagitis; I25.5 Ischemic cardiomyopathy; R00.1 Bradycardia, unspecified; Z82.5 Family history of asthma and other chronic lower respiratory diseases; Z86.16 Personal history of COVID-19; Z82.49 Family history of ischemic heart disease and other diseases of the circulatory system; R53.1 Weakness; N40.0 Benign prostatic hyperplasia without lower urinary tract symptoms; Z99.81 Dependence on supplemental oxygen; Z79.899 Other long term (current) drug therapy; Z97.2 Presence of dental prosthetic device (complete) (partial); Z97.3 Presence of spectacles and contact lenses
CPT/HCPCS: 36415; 36600; 71045; 78582; 80048; 80053; 81001; 82274; 82607; 82728; 82747; 82803; 82962; 83036; 83540; 83550; 83605; 83735; 83880; 84100; 84145; 84443; 84484; 85014; 85025; 85379; 85610; 85730; 86850; 86900; 86901; 87040; 87086; 87088; 87449; 87631; 87633; 87635; 93005; 93970; 94002; 94003; 94640; 94660; 94668; 94762; 97110; 97116; 97162; 97166; 97530; 97535; 97802; 97803; 99252; 99285; A9540; A9567; A4216; G0463; J0612; J0696; J1938; J2916

== ENCOUNTER 2025-05-05 19:39 | Inpatient (IN) | payer MEDICARE, SELFPAY ==
[2025-05-05] VITALS (14 sets, daily range): BP systolic 132–185; BP diastolic 59–98; PULSE 74–113; RESP 12–30; TEMP 35.8–36.8; O2SAT 74–97; BMI 23.6; BMI 22.7
--- NOTE | 2025-05-05 19:43 | EKG12_ITS ---
Test Reason : SOB Blood Pressure : */* mmHG Vent. Rate : 99 BPM Atrial Rate : 99 BPM P-R Int : 120 ms QRS Dur : 92 ms QT Int : 374 ms P-R-T Axes : 21 29 35 degrees QTcB Int : 479 ms Sinus rhythm with Premature atrial complexes Septal infarct , age undetermined Abnormal ECG Confirmed by JACQUI URIBE, VIK ([id number]), newspaper or periodical editor BLANCO BOCANEGRA ([id number]) on 05/07/2025 10:56:04 AM Referred By: Confirmed By: VIK OSMAN MD
--- NOTE | 2025-05-05 19:45 | EX.ED.DYSGE1 ---
HPI History of Present Illness Chief Complaint: Shortness of Breath Narrative Narrative: Patient is a 79-year-old male with past medical history of heart failure with reduced ejection fraction, chronic kidney disease, anemia, COPD, hypertension, hyperlipidemia who presents to the emergency department via EMS with a chief complaint of shortness of breath. Per EMS when they arrived he was trying to transition from his 6 L nasal cannula to his CPAP noted that he was struggling to breathe therefore they placed him on their CPAP. He was 79% on his 6 L. History is limited secondary to him being in acute respiratory distress therefore acute care caveat applies [facility] Medical History HFrEF (heart failure with reduced ejection fraction) ASCVD (arteriosclerotic cardiovascular disease) CKD (chronic kidney disease) stage 3, GFR 30-59 ml/min CKD (chronic kidney disease), stage IV Non-STEMI (non-ST elevated myocardial infarction) Bradycardia MADONNA (acute kidney injury) Anemia LV dysfunction Chronic anemia Tobacco use COPD (chronic obstructive pulmonary disease) HLD (hyperlipidemia) HTN (hypertension) BPH (benign prostatic hyperplasia) Chronic low back pain with sciatica Diabetes mellitus, type 2 CKD (chronic kidney disease), stage III Pneumonia COVID Wears glasses Wears dentures Home Medications ?Medication ?Instructions ?Recorded ?Last Taken ?Type insulin glargine 100 unit/mL (3 15 unit subcut QPM 08/05/21 Unknown History mL) subcutaneous pen (Lantus Solostar U-100 Insulin) insulin lispro 100 unit/mL 0 unit subcut TID SLIDING SCALE 08/05/21 Unknown History subcutaneous pen tamsulosin 0.4 mg capsule (Flomax) 0.4 mg PO DAILY urination 08/05/21 Unknown History ezetimibe 10 mg tablet 10 mg PO DAILY 04/06/24 Unknown History blood sugar diagnostic (Contour 09/12/24 Unknown History Next Test Strips) hydralazine 50 mg tablet 50 mg PO Q8H 04/03/25 Unknown History albuterol sulfate 2.5 mg/3 mL 2.5 mg (3 mL) inhalation Q2H PRN 04/22/25 Unknown Rx (0.083 %) solution for nebulization PRN SOB &/OR WHEEZING 30 days #180 mL albuterol sulfate 90 mcg/actuation 2 inh inhalation Q6H PRN shortness 04/22/25 Unknown Rx breath activated powder inhaler of breath or wheezing #1 ea (ProAir RespiClick) carvedilol 25 mg tablet 25 mg PO BIDCM #60 tabs 04/22/25 Unknown Rx furosemide 40 mg tablet 40 mg PO BIDLX #60 tabs 04/22/25 Unknown Rx isosorbide mononitrate 30 mg 30 mg PO DAILY #30 tabs 04/22/25 Unknown Rx tablet,extended release 24 hr nebulizer and compressor #1 ea 04/22/25 Unknown Rx finasteride 5 mg tablet 5 mg PO DAILY 05/05/25 Unknown History Allergy/AdvReac Type Severity Reaction Status Date / Time spironolactone AdvReac Intermediate Hyperkalemi Verified 04/19/25 03:10 a Corticosteroids AdvReac Other Verified 04/03/25 00:16 (Glucocorticoids) (steroids) Mgimuip-NVR-IoF Reductase AdvReac Other Verified 04/03/25 00:16 Inhibitor (Nctrakx-Xic-Dty Reductase Inhibitor) Family History Mother COPD (chronic obstructive pulmonary disease) Father CAD (coronary artery disease) Heart disease Surgical History Hx of cystoscopy Hx of colonoscopy Hx of left cataract extraction Hx of right cataract extraction Social History household members: spouse Smoking Status: Current every day smoker tobacco type: cigarettes alcohol intake: never substance use type: does not use ROS ROS ED ROS Narrative Review of systems unobtainable from the patient secondary to his acute respiratory distress therefore acute care caveat applies EXAM Physical Exam Narrative Exam Narrative: General: Patient lying in bed did appear to be uncomfortable in respiratory distress Head: Atraumatic, normocephalic Eyes: PERRL bilaterally, EOMI blood, no conjunctival injection noted Neck: Soft, supple, trachea midline Cardiovascular: Patient tachycardic with a regular rhythm Respiratory: Bilateral end expiratory wheezing noted Abdomen: Soft, nondistended, no tenderness palpation Extremities: +4/5 strength noted in the bilateral upper and lower extremities, radial pulses +2/4 in the bilateral extremities Neurological: Patient following commands he knew that he was at the hospital Skin: Warm, dry, intact no rashes or lesions noted Const Vital Signs: 05/05/25 19:39 05/05/25 19:44 05/05/25 19:46 Temperature 96.5 F L Temperature Source Temporal Pulse Rate 98 Respiratory Rate 24 H Respiratory Effort Labored Accessory Muscle Use Respiratory Pattern Tachypnea Blood Pressure 157/83 H Blood Pressure Mean 107 Pulse Ox 75 78 Oxygen Delivery Method CPAP CPAP Fraction of Inspired Oxygen (FIO2) 05/05/25 19:48 05/05/25 19:49 05/05/25 19:55 Temperature Temperature Source Pulse Rate 113 H 111 H 111 H Respiratory Rate 28 H 28 H 30 H Respiratory Effort Respiratory Pattern Tachypnea Tachypnea Blood Pressure 185/86 H Blood Pressure Mean 119 Pulse Ox 74 97 Oxygen Delivery Method Bi-pap Fraction of Inspired Oxygen (FIO2) 80 05/05/25 20:14 05/05/25 20:30 05/05/25 20:43 Temperature 96.5 F L Temperature Source Oral Pulse Rate 108 H 98 98 Respiratory Rate 29 H 27 H 27 H Respiratory Effort Respiratory Pattern Blood Pressure 164/84 H 164/84 H Blood Pressure Mean 110 110 Pulse Ox 95 96 96 Oxygen Delivery Method Bi-pap Bi-pap Fraction of Inspired Oxygen (FIO2) 50 05/05/25 21:00 05/05/25 21:29 05/05/25 21:30 Temperature 96.5 F L 96.5 F L Temperature Source Temporal Pulse Rate 91 84 Respiratory Rate 21 H 18 Respiratory Effort Respiratory Pattern Blood Pressure 157/96 H 132/82 H 132/82 H Blood Pressure Mean 116 98 98 Pulse Ox 95 95 Oxygen Delivery Method Bi-pap Fraction of Inspired Oxygen (FIO2) MDM MDM MDM Narrative Medical decision making narrative: Patient is a 79-year-old male who presented to the emergency department acute respiratory distress. On the differential diagnosis includes but only to COPD exacerbation, CHF, pneumonia, pneumothorax, ACS. Once workup is obtained reviewed he will be reevaluated. Patient given 3 DuoNebs, Solu-Medrol and placed on BiPAP. Patient CBC was significant for leukocytosis of 16,000 he does have a white count chronically elevated according previous blood draw, he was stable at 9.1, platelet count 252. Patient's INR normal at 1, PT of 13.1. Patient sodium normal 142, potassium was 4.5, creatinine was at his baseline at 2.72 does have underlying chronic kidney disease according to previous blood draws, anion gap of 16. Patient lactic acid elevated 2.8, AST and ALT are 43 and 44 respectively. Patient's troponin was 115 delta troponin pending EKG reviewed and showed sinus rhythm with PACs noted with a rate of 99 bpm. Patient proBNP elevated to 23,319. Patient's chest x-ray reviewed by myself by radiology was concern for CHF/volume overload. Patient's urinalysis reviewed and showed no evidence of infection. On reevaluation of the patient he is resting much more comfortably on BiPAP with improvement of his oxygenation. Patient was ordered Bumex as well as Rocephin and azithromycin at 2043. Patient's echocardiogram from 04/03/2025 reviewed and showed ejection fraction of 40% with stage I diastolic dysfunction. At this point time will discuss case with hospitalist for admission. Discussed case with hospitalist Dr. Rogers who accept patient for admission. Patient was notified is agreeable this plan all question concerns answered. Lab Data Labs: Laboratory Results - last 24 hr 05/05/25 05/05/25 19:49 20:50 WBC 16.8 H RBC 3.15 L Hgb 9.1 L Hct 30.3 L MCV 96.2 H MCH 28.9 MCHC 30.0 L RDW Std Deviation 49.4 H RDW Coeff of Humaira 14.2 Plt Count 252 MPV 10.8 Immature Gran % (Auto) 0.400 Neut % (Auto) 81.8 H Lymph % (Auto) 9.[address] [place] % (Auto) 7.2 Eos % (Auto) 0.8 Baso % (Auto) 0.5 Absolute Neuts (auto) 13.7 H Absolute Lymphs (auto) 1.57 Nucleated RBC % 0 PT 13.1 INR 1.0 APTT 29.3 Sodium 142 Potassium 4.5 Chloride 101 Carbon Dioxide 25.2 Anion Gap 16 H BUN 71 H Creatinine 2.72 H Estim Creat Clear Calc 19.22 L Est GFR (MDRD) Non-Af 23 L BUN/Creatinine Ratio 26.2 H Glucose 242 H Lactic Acid 2.8 H* Calcium 8.5 Total Bilirubin 0.49 AST 43 H ALT 44 Alkaline Phosphatase 93 Troponin T High Sens 115 H* [place] [address] H Total Protein 6.4 Albumin 3.9 Globulin 2.5 Albumin/Globulin Ratio 1.5 Urine Color Yellow Urine Clarity Clear Urine pH 6.0 Ur Specific [place] 1.015 Urine Protein 30 H Urine Glucose (UA) Normal Urine Ketones Negative Urine Occult Blood Negative Urine Nitrite Negative Urine Bilirubin Negative Urine Urobilinogen Normal Ur Leukocyte Esterase 25 H Urine RBC 0 SEEN Urine WBC 0-5 SEEN Ur Squamous Epith Cells 0 SEEN Urine Bacteria RARE Urine Mucus 0 SEEN Radiography Diagnostic Testing: Clinical Impression(s) from Imaging Studies Chest X-Ray 05/05/25 20:00 IMPRESSION: 1. Findings compatible with CHF/volume overload. 2. Increased pulmonary opacities within the left lung, which may reflect edema or pneumonia. Reading Location: [id number] Discharge Plan Triage Chief Complaint: Shortness of Breath ED Provider: Curtis Amor Dx/Rx/DC Orders Clinical Impression: CHF exacerbation, Acute on chronic hypoxic respiratory failure, Hypertension, COPD (chronic obstructive pulmonary disease), Chronic kidney disease Prescriptions: No Action ezetimibe 10 mg tablet 10 mg PO DAILY tamsulosin [Flomax] 0.4 mg Capsule 0.4 mg PO DAILY insulin lispro 100 unit/mL Insulin Pen 0 unit SUBCUT TID insulin glargine [Lantus Solostar U-100 Insulin] 100 unit/mL (3 mL) Insulin Pen 15 unit SUBCUT QPM hydralazine 50 mg tablet 50 mg PO Q8H (DME) Contour Next Test Strips Strip MISCELLANEOUS 4X/DAY albuterol sulfate 2.5 mg /3 mL (0.083 %) Solution For Nebulization 2.5 mg inhalation Q2H PRN PRN (Reason: SOB &/OR WHEEZING) 30 Days Qty: 180 0RF furosemide 40 mg Tablet 40 mg PO BIDLX Qty: 60 0RF carvedilol 25 mg Tablet 25 mg PO BIDCM Qty: 60 0RF isosorbide mononitrate 30 mg Tablet Extended Release 24 Hr 30 mg PO DAILY Qty: 30 0RF ProAir RespiClick 90 mcg/actuation aerosol powdr breath activated 2 inh inhalation Q6H PRN (Reason: shortness of breath or wheezing) Qty: 1 0RF (DME) nebulizer and compressor Device See Rx Instructions .Route Qty: 1 0RF Rx Instructions: As directed finasteride 5 mg tablet 5 mg PO DAILY Primary Care Provider: Ryley Montenegro Referrals: Ryley Montenegro MD [Primary Care Provider] - Print Language: Irish Disposition Disposition: Acute Care Hospital [facility]
--- NOTE | 2025-05-05 20:00 | RAD_ITS ---
PROCEDURE: CHEST 1 VIEW (PORTABLE) 05/05/2025 REASON FOR EXAM: SOB TECHNIQUE: Frontal view of the chest. COMPARISON: Chest radiograph 04/19/2025. FINDINGS: Hardware: None. Heart: Stable moderate cardiomegaly with pulmonary vascular congestion. Lungs: Bilateral fluffy pulmonary infiltrates, which have slightly progressed since prior examination. Resolution of prior pleural effusions. No pneumothorax. Bones: Degenerative changes are identified within the thoracic spine. RAD/Chest 1 View (Portable) IMPRESSION: 1. Findings compatible with CHF/volume overload. 2. Increased pulmonary opacities within the left lung, which may reflect edema or pneumonia. Reading Location: [id number]
--- OUTSIDE RECORDS SUMMARY | 2025-05-05 20:02 | XMS RPT_ITS | CCD ---
Author Organization [facility] Care Team Providers Care Customer Service Agent Name Role Phone Nancy Mirza Unavailable Unavailable [...] Provider Yuki, Dr. Nancy Key Attending Unavaila ble [...] Yuki, Dr. Nancy Key Attending Unavaila ble Juanito, Dr. Ayanna العراقي Attending Unavail able Yuki, Dr. Nancy Key Primary Care Unavaila ble Yuki, Dr. Nancy Key Attending Unavaila ble Yuki, Dr. Nancy Key Primary Care Unavaila Nancy Dunlap MD Primary Care Provider Ryley Jeter MD Primary Care Provider [phone] Dr. Ayanna Albert Attending Unavail able [place], [facility] PATY MARCOSSONIA Referring Trenava ilable NANCY MIRZA Primary Care Unavailable Ayanna Albert DO Unavailable Generic Provider , No Assigned Pcp Primary Car e Provider Unavailable Gerri Amos MD Primary Care Provider Unavailabl ariela Jeter MD, Ryley Key Primary Care Provider [phone] Nancy Mirza MD Primary Care Provider Generic [...] Unavailable Ryley Jeter MD Primary Care Provider [phone] Belkis URIBE, Dr. Suresh Attending Provider Generic Provider , No Assigned Pcp Primary Car e Provider Unavailable [facility] Consulting Unavai BERNADETTE Felix Attending Unavailable RYLEY JETER Primary Care Unavailable JESS GARCIA Admitting Unavailable CINTIA BENITZE Admitting Unavailable [facility] Consulting Un available RYLEY JETER Primary Care Unavailable NIDIA GARAY Attending Unavailable Dr. John Brandon DO Emergency Provider Jaiden URIBE, Dr. Dyana Paredes Admit Provider Jaiden URIBE, Dr. Dyana L Attending Provider Jaiden URIBE, Dr. Dyana Paredes Other Provider Adrian URIBE, Dr. Tijerina Other Provider Jay URIBE, Dr. Denny Other Provider Janelle URIBE, Dr. Smooth Ahn Other Provider Florentino URIBE, Dr. Grace Wilson Attending Provider Florentino URIBE, Dr. Grace Wilson Other Provider Teresa URIBE, Dr. Jose Perez Other Provider Ashly URIBE, Dr. Zavala Other Provider Bridget URIBE, Dr. Pizano Other Provider Angel URIBE, Dr. Rosa Other Provider Rylan VERDUZCO, Dr. Alatorre Attending Provider Rylan VERDUZCO, Dr. Alatorre Other Provider Chuy URIBE, Dr. Nancy Delgado Other Provider Susan URIBE, Dr. Stewart Other Provider Elvie URIBE, Dr. Butcher Other Provider Jesus URIBE, Dr. Wood Other Provider Keenan URIBE, Dr. Song Other Provider [phone] Mervin URIBE, Dr. Gutiérrez Other Provider Deep URIBE, Dr. Arredondo Other Provider [phone] Saritha URIBE, Dr. Ya Other Provider Radha URIBE, Dr. Guerra Other Provider Unavailabl ariela Woods MD, Dr. Mar Other Provider Demetri URIBE, Dr. Altamirano Other Provider [phone] Cordelia URIBE, Dr. Walsh Other Provider Lucinda URIBE, Dr. Barton Other Provider Dr. Dillon Moses DO Other Provider Tiffanie URIBE, Dr. Ballesteros Other Provider [phone] Sami URIBE, Dr. Corona Other Provider Asim VERDUZCO, Dr. Mantilla Other Provider Andrei URIBE, Dr. Sullivan Other Provider Callum URIBE, Dr. Kent Other Provider Sai URIBE, Dr. Rain Attending Provider Adrian URIBE, Dr. Tijerina Attending Provider Veronica URIBE, Dr. Valentin Attending Provider Janelle URIBE, Dr. Smooth Ahn Attending Provider Teresa URIBE, Dr. Jose Perez Attending Provider WOO SMALL Referring [facility] Steffany URIBE, [facility] Primary Care Provider [phone] Belkis URIBE, Dr. Suresh Attending Provider Dr. John Brandon DO Emergency Provider Jaiden URIBE, Dr. Dyana Paredes Admit Provider Jaiden URIBE, Dr. Dyana Paredes Other Provider Adrian URIBE, Dr. Tijerina Other Provider Jay URIBE, Dr. Denny Other Provider Janelle URIBE, Dr. Smooth Ahn Other Provider [phone] Florentino URIBE, Dr. Grace Wilson Attending Provider Florentino URIBE, Dr. Grace Wilson Other Provider Teresa URIBE, Dr. Jose Perez Other Provider Jaiden URIBE, Dr. Dyana Paredes Referring Provider Ashly URIBE, Dr. Zavala Other Provider Bridget URIBE, Dr. Pizano Other Provider Angel URIBE, Dr. Rosa Other Provider Rylan VERDUZCO, Dr. Alatorre Attending Provider [phone] Rylan DO, Dr. Alatorre Other Provider Chuy URIBE, Dr. Nancy Delgado Other Provider [phone] Susan URIBE, Dr. Stewart Other Provider Elvie URIBE, Dr. Butcher Other Provider [phone] Jesus URIBE, Dr. Wood Other Provider [phone] Keenan URIBE, Dr. Song Other Provider Mervin URIBE, Dr. Gutiérrez Other Provider [phone] Deep URIBE, Dr. Arredondo Other Provider Saritha URIBE, Dr. Ya Other Provider Radha URIBE, Dr. Guerra Other Provider Unavailabl ariela Woods MD, Dr. Mar Other Provider [phone] Demetri URIBE, Dr. Altamirano Other Provider Cordelia URIBE, Dr. Walsh Other Provider [phone] Lucinda URIBE, Dr. Braton Other Provider Josué VERDUZCO, Dr. Carranza Other Provider [phone] Tiffanie URIBE, Dr. Ballesteros Other Provider [phone] Sami URIBE, Dr. Corona Other Provider [phone] Asim VERDUZCO, Dr. Mantilla Other Provider Andrei URIBE, Dr. Sullivan Other Provider Callum URIBE, Dr. Kent Other Provider Sai URIBE, Dr. Rain Attending Provider Adrian URIBE, Dr. Tijerina Attending Provider Veronica URIBE, Dr. Valentin Attending Provider Janelle URIBE, Dr. Smooth Ahn Attending Provider Teresa URIBE, Dr. Jose Perez Attending Provider Damon VERDUZCO, Dr. Arredondo Emergency Provider Rizzo DO, Dr. Spencer Admit Provider Unavail able Rizzo DO, Dr. Spencer Attending Provider Geena Arnold MD, Dr. Grace Wilson Referring Provider Rizzo DO, Dr. Spencer Other Provider Unavail able Marian VERDUZCO, Dr. Hui Attending Provider Marian VERDUCZO, Dr. Hui Other Provider [facility], Dr. Ann Attending Provider STEFFANY, CHALON TUCKER Primary Care Unavailable DAY, WOO LARSEN Attending Unavailable STEFFANY, CHALON TUCKER Primary Care Unavailable DAY, WOO LARSEN Attending Unavailable PATY ORTEGA Attending Unavailab le STEFFANY, CHALON TUCKER Primary Care Unavailable SANDI PHAN Admitting Unavailab le SANDI PHAN Referring Unavailab le STEFFANY, CHALON TUCKER Primary Care Unavailable KRISTY PARKER Attending Unavailable EJ GUIDRY Attending Unavailable STEFFANY, CHALON TUCKER Primary Care Unavailable STEFFANY, CHALON TUCKER Primary Care Unavailable KEELEY PATTON Attending Unavailable STEFFANY, CHALON TUCKER Primary Care Unavailable EJ GUIDRY Attending Unavailable STEFFANY, CHALON TUCKER Primary Care Unavailable EJ GUIDRY Attending Unavailable STEFFANY, CHALON TUCKER Primary Care Unavailable KEELEY PATTON Attending Unavailable DAY, WOO LARSEN Attending Unavailable STEFFANY, CHALON TUCKER Primary Care Unavailable BROCK GROVES Attending Unavailab le STEFFANY, CHALON TUCKER Primary Care Unavailable DAY, WOO LARSEN Attending Unavailable STEFFANY, CHALON TUCKER Primary Care Unavailable STEFFANY, CHALON TUCKER Primary Care Unavailable PATY ORTEGA Attending Unavailab le ORTEGAPATY Attending Unavailab le STEFFANY, CHALON TUCKER Primary Care Unavailable Generic Provider , No Assigned Pcp Primary Car e Provider Unavailable AYANNA ALBERT Attending Unavailable GENERIC PROVIDER, NO ASSIGNED PCP Primary Care Unavailable AYANNA ALBERT Attending Unavailable YAANNA ALBERT Referring Unavailable GENERIC PROVIDER, NO ASSIGNED PCP Primary Care Unavailable MARICRUZ ALBERT Attending Unavailable GENERIC PROVIDER, NO ASSIGNED PCP Primary Care Unavailable Ryley Jeter Attending Unavailable Steffany, Chalon Primary Care Unavailable Steffany, Chalon Primary Care Unavailable ColonKayden Referring Unavailable Niranjan Colonag Attending Unavailable Dyana Hwang Consulting Unavailable Dyana Hwang Admitting Unavailable Steffany, Chalon Primary Care Unavailable Grace Arnold Attending Unavailable Breezy Campbell Consulting Unavailable Jay, Michayaevelio Consulting Unavailable Smooth Luis Consulting Unavailable Florentino, Grace Katie Consulting Unavailable oJse Moore Consulting Unavailable Nancy Rizzo Consulting Unavailable Nancy Rizzo Admitting Unavailable Steffany, Chalon Primary Care Unavailable Malika Fonseca Attending Unavailable Jay, Jayaprakas Consulting Unavailable Jose Moore Consulting Unavailable Breezy Campbell Consulting Unavailable Nancy Rizzo Consulting Unavailable Steffany, Chalon Primary Care Unavailable Ger Roberts Attending Unavailable Nancy Rizzo Admitting Unavailable Jay, Jayaprakas Consulting Unavailable Jose Moore Consulting Unavailable Breezy Campbell Consulting Unavailable Malika Fonseca Consulting Unavailable Steffany, Chalon Primary Care Unavailable Malika Alaniz Attending Unavailable Nancy Bhatt Referring Unavailable Steffany, Chalon Referring Unavailable Steffany, Chalon Primary Care Unavailable Karoline Denise Attending Unavailable Malika Fonseca Attending Unavailable Dyana Hwang Referring Unavailable Dyana Hwang Admitting Unavailable Tennille Limon Consulting Unavailable Steffany, Chalon Primary Care Unavailable Landry Fagan Attending Unavailable Harinder Gill Consulting Unavailable Moe Ortiz [...] Consulting Unavailable Florentino, Grace Katie Consulting Unavailable Dyana Hwang Attending Unavailable Breezy Campbell Attending Unavailable Breezy Campbell Consulting Unavailable Denisha Thompson Consulting Unavailable Smooth Luis Consulting Unavailable Jose Moore Consulting Unavailable Jose Moore Attending Unavailable Barbie Martin Attending Unavailabl e Steffany, [facility] Primary Care Unavailable Koroma, Young Admitting Unavailable Koroma, Young Attending Unavailable Koroma, Young Consulting Unavailable Grace Arnold Attending Unavailable Breezy Campbell Attending Unavailable Steffany, Chal Primary Care Unavailable Koffi Gibbs Attending Unavailable Smooth Luis Attending Unavailable Ga, Young Admitting Unavailable Koroma, Young Consulting Unavailable Steffany, Chalon Primary Care Unavailable Nancy Bhatt Attending Unavailable Ga, Young Consulting Unavailable Koroma, Young Admitting Unavailable Steffany, Chalon Primary Care Unavailable Nova, Nancy Attending Unavailable Nancy Bhatt Consulting Unavailable Korvinod, Grace Wilson Referring Unavailable Steffany, Chalon Primary Care Unavailable Bernardo Davis Attending Unavailable Nancy Rizzo Attending Unavailable Steffany, [facility] Primary Care Unavailable Kerwin Tamayo Attending Unavailabl e Allergies Allergy Classification Reported Allergen(s) Allergy Type Date of Onset Reaction(s) Facility Corticosteroids (1 source) predniSONE Drug Allergy 08-24-20 Other (See Comments) [facility] HMG-CoA Reductase Inhibitors (statins) (3 sources) Hmg-Coa Reductase Inhibitors (Statins) Drug Allergy 01-08-20 16 [facility] (20 sources) Hmg-Coa Reductase Inhibitors (Statins); Translations: [[id number] REDUCTASE INHIBITORS] Propensity to adverse reactions to drug 01-08-20 16 Other [facility] Work Phone: (6 sources) HMG-CoA reductase inhibitor Propensity to adverse reactions to drug 01-08-20 16 [facility] (20 sources) HMG-CoA reductase inhibitor Propensity to adverse reactions to drug 01-08-20 16 Unknown [facility] (18 sources) predniSONE; Translations: [predniSONE TABS] Drug Allergy 08-24-20 Other, Other (See Comments) [facility] (4 sources) predniSONE; Translations: [PREDNISONE] Drug Allergy 08-24-20 [facility] Repository (5 sources) Glucocorticoid Receptor Agonists Propensity to adverse reactions 04-06-20 24 Other [facility] Comment on above: Blood sugar increase (2 sources) Spironolactone Drug Allergy 04-19-20 [facility] (1 source) Corticosteroids Drug allergy (disorder) 04-03-20 [facility]ository (1 source) Spironolactone Drug Allergy 04-19-20 [facility] (1 source) Jyzmgow-Ilc-Djj Reductase Inhibitor Drug allergy (disorder) 04-03-20 [facility] Medications Current Medications Medication Drug Class(es) Dates Sig (Normalized) Sig (Original) albuterol 0.83 mg/ml inhalation solution (3 sources) beta2-Adrenergic Agonist Start: 04-22-2025 Start: 04-22-2025 Start: 10-11-2023 End: 10-11-2023 albuterol 2.5 mg /3 mL (0.08 3 %) nebulizer solution 2.5 mg amLODIPine 10 mg oral tablet (20 sources) Dihydropyridine Calcium Channel Deepali Start: 10-28-2024 End: 10-28-2024 take 10 mg by mouth once daily 10 mg, Oral, Daily, First dose on 10/28/24 at 0900 Start: 11-27-2023 End: 12-01-2023 take 10 mg by mouth once daily 10 mg, Oral, Daily, Fir st dose on 11/27/23 at 0900 Start: 10-22-2010 End: 05-01-2025 take 1 tablet by mouth once daily amLODIPine (Norvasc) 10 mg tablet Take 1 tablet (10 mg) by mouth once daily. 10/22/2010 05/01/2025 Discontinued (Discontinued by another clinician) amoxicillin 875 mg / clavulanate 125 mg [...] m g/2 mL nebulizer solution 0.5 mg carvedilol 25 mg oral tablet (1 source) alpha-Adrenergic Deepali, beta-Adrenergic Deepali Start: 04-22-2025 cefdinir 300 mg oral capsule (7 sources) Cephalosporin Antibacterial Start: 11-13-2024 take 1 capsule by mouth twice daily cefdinir (OMNICEF) 300 MG capsule Take 1 (one) capsule (300 mg total) by mouth 2 (two) times a day . 11/13/2024 Active cholecalciferol 0.125 mg oral tablet (5 sources) Vitamin D Start: 10-14-2023 End: 11-13-2023 take 1 tablet by mouth once daily cholecalcifer ol, vitamin D3, 5,000 unit Tab tablet Take 1 (one) tablet (5,000 Units total) by mouth daily . 0 10/14/2023 11/13/2023 Active Start: 10-12-2023 cholecalcifero l (Vitamin D-3) tablet 5,000 Units [facility] ([facility] source) Start: 05-01-2025 compress.stocking,knee,reg,[facility] Indications: Stage 3b chronic kidney disease (Multi) , Edema, unspecified type 1 Package once daily. 15-20 mmhg 1 each 1 05/01/2025 Active Drug or medicament (substanc e) (2 sources) Start: 10-13-2023 ezetimibe 10 mg oral tablet (20 sources) Dietary Cholesterol Absorption Inhibitor Start: 10-21-2023 End: 11-14-2025 Start: 10-13-2023 ezetimibe (Zet ia) tablet 10 mg Start: 10-13-2023 End: 11-12-2023 take 1 tablet by mouth once daily at bedtime ezetimibe (Zetia) 10 mg tablet Indications: Acute on chronic systolic (congestive) heart failure Take 1 tablet (10 mg) by mouth once daily at bedtime. 30 tablet 10/13/2023 6:34 PM EST 10/13/2023 Active furosemide 40 mg oral tablet (20 sources) Loop Diuretic Start: 04-22-2025 Start: 09-14-2024 End: 04-10-2025 Start: 09-14-2024 End: 04-10-2025 Start: 09-14-2024 End: 04-03-2025 take 1 tablet by mouth twice daily furosemide (LASIX) 40 MG tablet Take 1 (one) tablet (40 mg total) by mouth 2 (two) times a day . 180 tablet 3 10/23/2024 Active Start: 12-01-2023 End: 02-23-2025 Start: 11-27-2023 End: 12-01-2023 20 mg, Intravenous, [...] oral tablet (20 sources) Arteriolar Vasodilator Start: 09-14-2024 End: 04-03-2025 take 1 tablet by mouth twice daily hydrALAZINE (Apresoline) 50 mg tablet Take 1 tablet (50 mg) by mouth 2 times a day. 10/23/2024 Active Start: 09-14-2024 End: 04-11-2026 hydroCHLOROthiazide 12.5 mg oral capsule (9 sources) [...] . 15 mL 11 07/30/2023 Active Start: 08-05-2021 Insulin Glargi ne (Lantus Solostar U-100 Insulin) 100 unit/mL (3 mL) Insulin Pen Active 15 U SC EVERY EVENING August 05, 2021 12:00am Start: 08-05-2021 Insulin Glargi ne (Lantus Solostar U-100 Insulin) 100 unit/mL (3 mL) Insulin Pen Active 18 UNIT SC EVERY EVENING August 04, 2021 11:00pm Start: 10-13-2019 End: 11-06-2024 inject 14 [IU] by subcutaneous injection once daily insulin glargine (Lantus) 100 unit/mL (3 mL) pen Inject 14 Units under the skin once daily. 07/30/2023 Active Start: 11-11-2018 inject 20 [IU] by [...] injection 0-15 Units Start: 08-05-2021 End: 04-04-2025 Start: 03-15-2020 End: 11-02-2023 insulin lispro (HumaLOG) [...] sources) Nitrate Vasodilator Start: 10-06-2024 End: 10-28-2024 LORazepam 0.5 mg oral tablet (1 source) Benzodiazepine Start: 10-12-2023 LORazepam (Ativan) tablet 0.5 mg magnesium hydroxide 240 mg/ml oral suspension (1 source) Start: 10-11-2023 take 10 mL by mouth every twenty-fou r hours as needed 10 mL, oral, Daily PRN, constipation, first line, Starting on Wed10/11/23 at 0502 Contact provider if no bowel movement in past 48 hours. Concentra chinyere product. Follow administration with 8 ounces of water. 24 hr metoprolol succinate 25 mg extended release oral tablet (20 sources) beta-Adrenergic Deepali Start: 10-11-2023 End: 05-01-2025 take 1 tablet by mouth once daily metoprolol succinate XL (Toprol-XL) 25 mg 24 hr tablet Indications: Abnormal electrocardiogram (ECG) (EKG) Take 1 tablet (25 mg) by mouth once daily. Do not crush or chew. Do not start before October 14, 2023. 90 tablet 10/14/2023 05/01/2025 Discontinued (Discontinued by another clinician) nitroglycerin 0.4 mg sublingual tablet (15 sources) [...] 11/27/23 at 0337 Anginal pain, may repeat [id number] x3, then notify physician. DO NOT CRUSH [...] pantoprazole 40 mg delayed release oral tablet (3 sources) Proton Pump Inhibitor Start: 04-10-2025 Pen Needle, Diabetic 32 Gauge X 1/4 [...] tein A microsphere (Optison) injection 0.5 mL predniSONE 20 mg oral tablet (15 sources) Start: 04-22-2025 Start: 10-24-2024 predniSONE (DE LTASONE) 20 MG tablet Take 1 (one) tablet (20 mg total) by mouth For 5 days . 10/24/2024 Active sulfur hexafluoride microsphr (Lumason) injection 24.28 mg (1 source) Start: 10-11-2023 sulfur hexaflu oride microsphr (Lumason) injection 24.28 mg tamsulosin hydrochloride 0.4 mg oral capsule (20 sources) alpha-Adrenergic Deepali Start: 08-05-2021 Start: 09-01-2018 End: 10-28-2024 take 1 capsule by mouth once daily tamsulosin (Flomax) 0.4 mg 24 hr capsule Take 1 capsule (0.4 mg) by mouth once daily. 09/01/2018 Active zinc sulfate 220 mg oral capsule (5 sources) Start: 10-12-2023 End: 11-13-2023 take 1 capsule by mouth once daily zinc sulfate (ZINCATE) 50 mg zinc (220 mg) capsule Take 50 mg by mouth daily . 0 10/14/2023 11/13/2023 Active (2 sources) Start: 02-19-2023 (3 sources) Start: 12-01-2023 Start: 12-31-2022 End: 12-01-2023 (7 sources) Start: 04-22-2025 Start: 09-12-2024 Start: 11-27-2023 End: 12-01-2023 take 500 mg [...] NOT intended for KVO. [Order 4 End] Completed/Discontinued Medications Medication Drug Class(es) Dates Sig [...] Refills: 0 Ordered: 27-Jul-2023 DO Active albuterol 0.833 mg/ml / ipratropium bromide 0.167 [...] tablet 324 mg Start: 03-18-2021 End: 04-10-2025 atorvastatin 20 mg oral tablet (1 source) [...] mg/ml injection (4 sources) Start: 10-28-2024 End: 12-28-2024 125 mL, Intravenous, at 750 mL/hr, Once, [...] (porcine) injection 4,000 Units Start: 11-26-2023 take [id number] [IU] intravenously every four hours as needed [...] Diuretic, Angiotensin Converting Enzyme Inhibitor Start: 08-05-2021 End: 04-06-2024 Start: 08-05-2021 take 1 tablet by andres th once daily Quinapril-Hydrochlorothiazide Active 1 T ABLET PO DAILY August 04, 2021 11:00pm Start: [...] (20 sources) Angiotensin Converting Enzyme Inhibitor Start: 04-06-2024 End: 04-10-2025 Start: 02-24-2024 End: 02-24-2024 take 1 tablet [...] tablet 02/24/2024 Active Start: 10-08-2023 End: 10-07-2024 50 ml magnesium [...] beta Lactamase Inhibitor Start: 11-26-2023 End: 11-26-2023 piperacillin-shahab obactam-dextrose (Zosyn) IV 3.375 g microencapsulated potassium chloride 20 meq extended release oral tablet (20 sources) Start: 09-14-2024 End: 05-01-2025 take 1 tablet by mouth twice daily at mealtime Potassium Chloride 20 mEq Tablet,Er Particles/Iliana ls Discontinued 20 meq PO TWICE DAILY WITH MEALS 60 30 September 14, 2024 1:00am April 10, 2025 3:23pm Start: 09-14-2024 End: 04-10-2025 Start: 11-27-2023 End: 11-27-2023 20 mEq, Oral, Once, On 11/27/23 at 2230, For 1 dose 20mEq orally x 1 for serum Potassium in range of 3.5-4 mEq/L per Critical Care Electrolyte Replacement Therapy. DO NOT CRUSH OR CHEW (if instructed may dissolve tablet(s) in liquid) DO NOT ADMINISTER DISSOLVED TABLET VIA SURGICALLY PLACED TUBE OR TUBE less than 14 Turkish. To administer dissolved tablet(s) mix with 4 [...] mL/hr, Every 1 hour, First dose on Wed11/27/23 at 1015, For 2 doses 20mEq IVPB over 60 minutes x 2 (for total of 40 mEq over 2 hours) for serum Potassium in range of 3-3.4 mEq/L per Critical Care Electrolyte Replacement Therapy. (CRITICAL CARE) ORDER repeat potassium level 4 hours after second dose has been infused. VESICANT Sodium Chloride (8 sources) Start: 10-27-2024 End: 10-28-2024 sodium chloride (PF) (NS) fl ush 5 mL Start: 10-27-2024 End: 10-27-2024 take [...] 0617, For 1 dose, Tessa Madera L: mali override Start: 10-11-2023 End: 10-11-2023 sodium chloride 0.9 % bolus 500 mL Start: 10-11-2023 End: 10-11-2023 sodium chloride 0.9% infusio n sodium zirconium cyclosilicate (LOKELMA) packet 10 g (1 source) Start: 10-28-2024 End: 10-28-2024 sodium zirconium cyclosilicate (LOKELMA) packet 10 g spironolactone 25 mg oral tablet (8 sources) Aldosterone Antagonist Start: 03-09-2025 End: 03-09-2026 vancomycin in dextrose 5 % (Vancocin) IVPB 1,000 mg (1 source) Start: 11-26-2023 End: 11-26-2023 vancomycin in dextrose 5 % (Vancocin) IVPB 1,000 mg Problems Active Problems Problem Classification Problem Date Documented Da te Episodic/Chronic Acute and unspecified renal failure (12 sources) Acute injury of kidney; Translations: [Acute kidney failure, unspecified] Onset: 02-28-2025 11-26-2023 Episodic Acute myocardial infarction (20 sources) Myocardial infarction; Translations: [Non-ST elevation (NSTEMI) myocardial infarction] Onset: 11-27-2023 11-26-2023 Chronic Cardiac dysrhythmias (7 sources) Bradycardia; Translations: [Bradycardia, unspecified] Onset: 04-23-2025 04-05-2025 Episodic Chronic kidney disease (20 sources) Chronic kidney disease; Translations: [Chronic kidney disease, unspecified] Onset: 07-30-2023 Chronic Chronic kidney disease (8 sources) Chronic kidney disease; Translations: [Chronic kidney disease, stage 3b (Multi)] Onset: 08-25-2023 Chronic obstructive pulmonary disease and bronchiectasis (8 sources) Pulmonary emphysema; Translations: [Emphysema, unspecified] Onset: 10-27-2024 10-27-2024 Chronic Congestive heart failure; nonhypertensive (19 sources) Acute congestive heart failure; Translations: [Heart failure, unspecified] Onset: 10-18-2024 10-11-2023 Chronic Coronary atherosclerosis and other heart disease (13 sources) Coronary arteriosclerosis; Translations: [Atherosclerotic heart disease of craig coronary artery without angina pectoris] Onset: 10-17-2024 11-07-2024 Chronic Deficiency and other anemia (6 sources) Anemia; Translations: [Anemia, unspecified] 04-04-2025 Episodic Deficiency and other anemia (2 sources) Chronic anemia; Translations: [Anemia, unspecified] 04-19-2025 Episodic Deficiency and other anemia (1 source) Anemia, unspecified; Translations: [Anemia, unspecified] Onset: 04-23-2025 Episodic Deficiency and other anemia (1 source) Deficiency and other anemia Diabetes mellitus with complications (20 sources) Type 1 diabetes mellitus uncontrolled; Translations: [Diabetic neuropathy] Onset: 03-01-2011 05-19-2016 Chronic Diabetes mellitus without complication (20 sources) Type 1 diabetes mellitus; 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] Onset: 03-01-2011 01-09-2016 Chronic Diseases of white blood cells (5 sources) Leukocytosis; Translations: [Elevated white blood cell count, unspecified] Onset: 05-02-2025 04-19-2025 Chronic Disorders of lipid metabolism (20 sources) Pure hypercholesterolemia ; Translations: [Pure hypercholesterolemia , unspecified] Onset: 03-01-2011 01-09-2016 Chronic Essential hypertension (20 sources) Essential hypertension; Translations: [Essential (primary) hypertension] Onset: 03-01-2011 01-09-2016 Chronic Fluid and electrolyte disorders (9 sources) Hyperkalemia; Translations: [Hyperkalemia] Onset: 02-28-2025 Episodic Hyperplasia of prostate (1 source) Benign prostatic hyperplasia without lower urinary tract symptoms; Translations: [Benign prostatic hyperplasia without lower urinry tract symp] Onset: 07-30-2023 Chronic Hypertension with complications and secondary hypertension (11 sources) Hypertensive emergency; Translations: [Hypertensive emergency] Onset: 09-14-2024 10-18-2024 Chronic Malaise and fatigue (20 sources) Fatigue; Translations: [Other fatigue] Onset: 10-18-2024 10-18-2024 Episodic Occlusion or stenosis of precerebral arteries (20 sources) Bilateral carotid artery stenosis; Translations: [Occlusion and stenosis of bilateral carotid arteries] Onset: 02-18-2021 Chronic Osteoarthritis (12 sources) Arthritis; Translations: [Arthropathy, unspecified, site unspecified] Onset: 08-24-2023 08-24-2023 Chronic Other acquired deformities (5 sources) Scoliosis of lumbar spine; Translations: [Scoliosis, unspecified] 04-07-2024 Chronic Other acquired deformities (5 sources) Lumbar spondylolisthesis; Translations: [Spondylolisthesis, lumbar region] 04-07-2024 Episodic Other aftercare (1 source) Post-discharge follow-up; Translations: [Encounter for follow-up examination after completed treatment for conditions other than malignant neoplasm] 03-09-2025 Episodic Other aftercare (1 source) 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; Translations: [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 (current) use of insulin] Onset: 05-02-2025 Episodic Other and ill-defined heart disease (5 sources) Systolic dysfunction; Translations: [Other ill-defined heart diseases] 10-21-2023 Chronic Other and ill-defined heart disease (6 sources) Left ventricular cardiac dysfunction; Translations: [Heart disease, unspecified] 04-03-2025 Chronic Other and ill-defined heart disease (2 sources) Other ill-defined heart diseases; Translations: [Other ill-defined heart diseases] Onset: 10-18-2024 Chronic Other and ill-defined heart disease (1 source) Heart disease, unspecified; Translations: [Heart disease, unspecified] Onset: 04-23-2025 Chronic Other lower respiratory disease (5 sources) Acute cardiac pulmonary edema ; Translations: [Acute pulmonary edema] 09-22-2024 Episodic Other lower respiratory disease (3 sources) Shortness of breath; Translations: [Shortness of breath] Onset: 10-18-2024 Episodic Other nervous system disorders (2 sources) Walking disability; Translations: [Difficulty in walking, not elsewhere classified] 04-19-2025 Chronic Other non-epithelial cancer of skin (8 sources) Squamous cell carcinoma of skin of ear; Translations: [Squamous cell carcinoma of skin of unspecified ear and external auricular canal] 08-12-2021 Episodic Other screening for suspected conditions (not mental disorders or infectious disease) (20 sources) Patient encounter status; Translations: [Encounter for screening for malignant neoplasm of prostate] Onset: 03-01-2011 10-29-2017 Episodic Peripheral and visceral atherosclerosis (6 sources) Intermittent claudication; Translations: [Peripheral vascular disease, unspecified] Onset: 10-18-2024 10-18-2024 Chronic Pneumonia (except that caused by tuberculosis or sexually transmitted disease) (4 sources) Infective pneumonia; Translations: [Pneumonia, unspecified organism] Onset: 02-28-2025 10-11-2023 Episodic Residual codes; unclassified (2 sources) Edema; Translations: [Edema, unspecified] 05-01-2025 Episodic Respiratory failure; insufficiency; arrest (adult) (1 source) Acute on chronic hypoxemic respiratory failure; Translations: [Acute and chronic respiratory failure with hypoxia] 11-30-2023 Chronic Respiratory failure; insufficiency; arrest (adult) (19 sources) Acute respiratory failure; Translations: [Acute respiratory failure with hypoxia] Onset: 05-02-2025 10-11-2023 Episodic Septicemia (except in labor) (3 [...] see to establish care for urine retention Unclassified (1 source) Acidosis, unspecified; Translations: [Acidosis, unspecified] Onset: 05-02-2025 Past or Other Problems Problem Classification Problem Date Documented Da te Episodic/Chronic Diabetes mellitus without complication (20 sources) Hyperglycemia; Translations: [Hyperglycemia, unspecified] Onset: 10-27-2024 10-27-2024 Episodic Genitourinary symptoms and ill-defined conditions (2 sources) Proteinuria, unspecified; Translations: [Proteinuria, unspecified] Onset: 02-07-2024 Episodic Mood disorders (1 source) Mood disorders Onset: 04-04-2025 04-04-2025 Other lower respiratory disease (20 sources) Dyspnea; Translations: [Shortness of breath] Onset: 10-18-2024 10-18-2024 Episodic Other lower respiratory disease (1 source) Acute pulmonary edema; Translations: [Acute pulmonary edema] Onset: 09-14-2024 Episodic Spondylosis; intervertebral disc disorders; other back problems (6 sources) Low back pain; Translations: [Low back pain] Onset: 05-25-2024 04-06-2024 Episodic Viral infection (12 sources) Disease caused by 2019-nCoV; Translations: [COVID-19] Onset: 10-11-2023 Resolved: 10-13-2023 10-11-2023 Episodic Results Test Name Value Interpretation Reference Range Facility BASIC METABOLIC PANEL WITH A NION GAPon 04-28-2025 Calcium [Mass/Vol] 8.2 mg/dL Low 8.6-10.3 [facility] Comment on above: Performed By: #### 9 2498 #### [facility] [place] [address] Quality Assurance Tester: Jadon Velez MD Chloride [Moles/Vol] 99 mmol/L Normal 98-110 [facility] Comment on above: Performed By: #### 9 2498 #### [facility] [place] [address] Quality Assurance Tester: Jadon Velez MD CO2 [Moles/Vol] 30 mmol/L Normal 20-32 [facility] Comment on above: Performed By: #### 9 2498 #### [facility] [place] [address] Quality Assurance Tester: Jadon Velez MD Creatinine [Mass/Vol] 2.37 mg/dL High 0.70-1.[address] [facility] Comment on above: Performed By: #### 9 2498 #### [facility] [place] [address] Quality Assurance Tester: Jadon Velez MD ELECTROLYTE BALANCE 10 mmol/L (calc) Normal 7-17 [facility] Comment on above: Performed By: #### 9 2498 #### [facility] [place] [address] Quality Assurance Tester: Jadon Velez MD GFR/1.73 sq M.predicted among non-blacks MDRD (S/P/Bld) [Vol rate/Area] 27 mL/min/{1.73_m2} Low > OR = 60 [facility] Comment on above: Performed By: #### 9 2498 #### [facility] [place] [address] Quality Assurance Tester: Jadon Velze MD Glucose [Mass/Vol] 40 mg/dL Low 65-99 [facility] Comment on above: Result Comment: Veri fied by repeat analysis. Fasting reference interval Performed By: #### 9 2498 #### [facility] [address], [address] [place] [address] Quality Assurance Tester: Jadon Velez MD Potassium [Moles/Vol] 4.0 mmol/L Normal 3.5-5.[address] [facility] Comment on above: Performed By: #### 9 2498 #### [facility] [address], [address] [place] [address] Quality Assurance Tester: Jadon Velez MD Sodium [Moles/Vol] 139 mmol/L Normal 135-146 [facility] Comment on above: Performed By: #### 9 2498 #### [facility] [address], [address] [place] [address] Quality Assurance Tester: Jadon Velez MD Urea nitrogen [Mass/Vol] 82 mg/dL High 7- [facility] Comment on above: Performed By: #### 9 2498 #### [facility] [place] [address] Quality Assurance Tester: Jadon Velez MD Urea nitrogen/Creatinine [Mass ratio] 35 mg/mg High - [facility] Comment on above: Performed By: #### 9 2498 #### [facility] [place] [address] Quality Assurance Tester: Jadon Velez MD Basic Metabolic Profile (BMP )on 04-23-2025 BUN Normal - [facility] Comment on above: Result Comment: Canc elled via OM: Order cancelled - Patient discharged Performed By: #### L 500.2500, L100.0100 ####[facility] [address] [place], [address] BUN/CRE Normal - [facility] Comment on above: Result Comment: Canc elled via OM: Order cancelled - Patient discharged Performed By: #### L 500.2500, L100.0100 ####[facility] [address] [place], [address] Calcium Normal 7.6-11.0 [facility] Comment on above: Result Comment: Canc elled via OM: Order cancelled - Patient discharged Performed By: #### L 500.2500, L100.0100 ####[facility] [address] [place], [address] CL Normal 98-108 [facility] Comment on above: Result Comment: Canc elled via OM: Order cancelled - Patient discharged Performed By: #### L 500.2500, L100.0100 ####[facility] [address] [place], [address] CO2 Normal 21.0-32.0 [facility] Comment on above: Result Comment: Canc elled via OM: Order cancelled - Patient discharged Performed By: #### L 500.2500, L100.0100 ####[facility] [address] [place], [address] CREAT,SERUM Normal 0.70-1.20 [facility] Comment on above: Result Comment: Canc elled via OM: Order cancelled - Patient discharged Performed By: #### L 500.2500, L100.0100 ####[facility] [address] [place], [address] eGFR Normal >60 [facility] Comment on above: Result Comment: Canc elled via OM: Order cancelled - Patient discharged Performed By: #### L 500.2500, L100.0100 ####[facility] [address] [place], [address] GAP Normal 5-15 [facility] Comment on above: Result Comment: Canc elled via OM: Order cancelled - Patient discharged Performed By: #### L 500.2500, L100.0100 ####[facility] [address] [place], [address] GLU Normal 70-99 [facility] Comment on above: Result Comment: Canc elled via OM: Order cancelled - Patient discharged Performed By: #### L 500.2500, L100.0100 ####[facility] [address] [place], [address] Potassium Normal 3.3-5.1 [facility] Comment on above: Result Comment: Canc elled via OM: Order cancelled - Patient discharged Performed By: #### L 500.2500, L100.0100 ####[facility] [address] [place], [address] Basic Metabolic Profile (BMP) Normal 133-145 [facility] Comment on above: Result Comment: Canc elled via OM: Order cancelled - Patient discharged Performed By: #### L 500.2500, L100.0100 ####[facility] [address] [place], [address] CBC W/Diff, Automatedon 06-2 Absolute Neut Normal 2.0-7.7 [facility] Comment on above: Result Comment: Canc elled via OM: Order cancelled - Patient discharged Performed By: #### L 500.2500, L100.0100 ####[facility] [address] [place], [address] HCT Normal 40-54 [facility] Comment on above: Result Comment: Canc elled via OM: Order cancelled - Patient discharged Performed By: #### L 500.2500, L100.0100 ####[facility] [address] [place], [address] HGB Normal 13.0-16.5 [facility] Comment on above: Result Comment: Canc elled via OM: Order cancelled - Patient discharged Performed By: #### L 500.2500, L100.0100 ####[facility] [address] [place], [address] MCH Normal 27.0-32.0 [facility] Comment on above: Result Comment: Canc elled via OM: Order cancelled - Patient discharged Performed By: #### L 500.2500, L100.0100 ####[facility] [address] [place], [address] MCHC Normal 32-36 [facility] Comment on above: Result Comment: Canc elled via OM: Order cancelled - Patient discharged Performed By: #### L 500.2500, L100.0100 ####[facility] [address] [place], [address] MCV Normal 80-94 [facility] Comment on above: Result Comment: Canc elled via OM: Order cancelled - Patient discharged Performed By: #### L 500.2500, L100.0100 ####[facility] [address] [place], [address] NEUT% Normal 47-70 [facility] Comment on above: Result Comment: Canc elled via OM: Order cancelled - Patient discharged Performed By: #### L 500.2500, L100.0100 ####[facility] [address] [place], [address] PLT Normal 150-450 [facility] Comment on above: Result Comment: Canc elled via OM: Order cancelled - Patient discharged Performed By: #### L 500.2500, L100.0100 ####[facility] [address] [place], [address] RBC Normal 4.6-6.2 [facility] Comment on above: Result Comment: Canc elled via OM: Order cancelled - Patient discharged Performed By: #### L 500.2500, L100.0100 ####[facility] [address] [place], [address] RDW CV Normal 11.6-14.6 [facility] Comment on above: Result Comment: Canc elled via OM: Order cancelled - Patient discharged Performed By: #### L 500.2500, L100.0100 ####[place] [facility] [address] [place], [address] RDW SD Normal 35.1-43.9 [facility] Comment on above: Result Comment: Canc elled via OM: Order cancelled - Patient discharged Performed By: #### L 500.2500, L100.0100 ####[facility] [address] [place], [address] WBC Normal 4.4-11.0 [facility] Comment on above: Result Comment: Canc elled via OM: Order cancelled - Patient discharged Performed By: #### L 500.2500, L100.0100 ####[facility] [address] [place], [address] Anion gap in Serum or Plasma Ordered By: Bipin Gonzalez on 04-22-2025 Anion gap [Moles/Vol] 14 mmol/L 5-15 [facility] BUN/creatinine ratioOrdered By: Bipin Gonzalez on 04-22-2025 Urea nitrogen/Creatinine [Mass ratio] 30.0 mg/mg High - [facility] Basic Metabolic Profile (BMP )on 04-22-2025 BUN/CRE 30.0 RATIO High - [facility] Comment on above: Performed By: #### L 500.2500, L501.5200 ####[facility] [address] [place], [address] Calcium [Mass/Vol] 8.6 mg/dL Normal 7.6-11.0 [facility] Comment on above: Performed By: #### L 500.2500, L501.5200 ####[facility] [address] [place], [address] Chloride [Moles/Vol] 100 mmol/L Normal 98-108 [facility] Comment on above: Performed By: #### L 500.2500, L501.5200 ####[facility] [address] [place], [address] CO2 [Moles/Vol] 23.0 mmol/L Normal 21.0-32.0 [facility] Comment on above: Performed By: #### L 500.2500, L501.5200 ####[facility] [address] [place], [address] Creatinine [Mass/Vol] 2.97 mg/dL High 0.70-1.20 [facility] Comment on above: Performed By: #### L 500.2500, L501.5200 ####[facility] [address] [place], [address] ECRCL 17.60 ml/min Low 50-250 [facility] Comment on above: Performed By: #### L 500.2500, L501.5200 ####[facility] [address] [place], [address] GAP 14 Normal 5-15 [facility] Comment on above: Performed By: #### L 500.2500, L501.5200 ####[facility] [address] [place], [address] GFR/1.73 sq M.predicted among non-blacks MDRD (S/P/Bld) [Vol rate/Area] 20 mL/min/{1.73_m2} Low >60 [facility] Comment on above: Result Comment: mL/m in/1.73m2 CKD-EPI Creatinine Equation (2020) Performed By: #### L 500.2500, L501.5200 ####[facility] [address] [place], [address] Glucose [Mass/Vol] 240 mg/dL High 70-99 [facility] Comment on above: Performed By: #### L 500.2500, L501.5200 ####[facility] [address] [place], [address] Potassium [Moles/Vol] 4.2 mmol/L Normal 3.3-5.1 [facility] Comment on above: Performed By: #### L 500.2500, L501.5200 ####[facility] [address] [place], [address] Sodium [Moles/Vol] 137 mmol/L Normal 133-145 [facility] Comment on above: Performed By: #### L 500.2500, L501.5200 ####[facility] [address] [place], [address] Urea nitrogen [Mass/Vol] 89 mg/dL High 4-19 [facility] Comment on above: Performed By: #### L 500.2500, L501.5200 ####[facility] [address] [place], [address] Bedside Glucoseon 04-22-2025 FINGERSTICK GLU 246 mg/dL High 74-106 [facility] Comment on above: Result Comment: ADITI GEMENT OF PATIENT CARE PER NURSING PROTOCOL Performed By: #### L 501.080 ####[facility] [address] [place], [address] FINGERSTICK GLU 202 mg/dL High 74-106 [facility] Comment on above: Result Comment: ADITI GEMENT OF PATIENT CARE PER NURSING PROTOCOL Performed By: #### L 501.080 ####[facility] [address] [place], [address] Carbon dioxide, total [Moles /volume] in Central venous bloodOrdered By: Bipin Gonzalez on 04-22-2025 CO2 [Moles/Vol] 23.0 mmol/L 21.0-32.0 [facility] Chloride assayOrdered By: Song Gonzalez on 04-22-2025 Chloride [Moles/Vol] 100 mmol/L 98-108 [facility] Glomerular filtration rate ( GFR) estimation/1.73 sq m using serum, plasma, or whole bOrdered By: Bipin Gonzalez on 04-22-2025 GFR/1.73 sq M.predicted among non-blacks MDRD (S/P/Bld) [Vol rate/Area] 20 mL/min/{1.73_m2} Low >60 [facility] Gl[facility] at [facility] deOrdered By: Malika Fonseca on 04-22-2025 Glucose [Mass/Vol] 202 mg/dL High 74-106 [facility] Magnesiumon 04-22-2025 Magnesium [Mass/Vol] 2.7 mg/dL High 1.5-2.2 [facility] Comment on above: Performed By: #### L 500.2500, L501.5200 ####[facility] [address] [place], [place], [address] Magnesium measurement (mass/ volume)Ordered By: Bipin Gonzalez on 04-22-2025 Magnesium (Unsp spec) [Mass/Vol] 2.7 mg/dL High 1.5-2.2 [facility] Potassium measurement (mass/ volume)Ordered By: Bipin Gonzalez on 04-22-2025 Potassium (Unsp spec) [Mass/Vol] 4.2 mmol/L 3.3-5.1 [facility] Serum creatinine measurement (mass/volume)Ordered By: Bipin Gonzalez on 04-22-2025 Creatinine [Mass/Vol] 2.97 mg/dL High 0.70-1.20 [facility] Serum glucose measurement (m ass/volume)Ordered By: Bipin Gonzalez on 04-22-2025 Glucose [Mass/Vol] 240 mg/dL High 70-99 [facility] Serum or plasma calcium nikkie urement (mass/volume)Ordered By: Bipin Gonzalez on 04-22-2025 Calcium [Mass/Vol] 8.6 mg/dL 7.6-11.0 [facility] Serum or plasma urea nitroge n measurement (mass/volume)Ordered By: Bipin Gonzalez on 04-22-2025 Urea nitrogen [Mass/Vol] 89 mg/dL High 4-19 [facility] Sodium levelOrdered By: Viet Gonzalez on 04-22-2025 Sodium [Moles/Vol] 137 mmol/L 133-145 [facility] Basic Metabolic Profile (BMP )on 04-21-2025 BUN/CRE 27.1 RATIO High 10-20 [facility] Comment on above: Performed By: #### L 500.2500 ####[facility] [address] [place], [address] Calcium [Mass/Vol] 8.9 mg/dL Normal 7.6-11.0 [facility] Comment on above: Performed By: #### L 500.2500 ####[facility] [address] [place], [address] Chloride [Moles/Vol] 102 mmol/L Normal 98-108 [facility] Comment on above: Performed By: #### L 500.2500 ####[facility] [address] [place], [address] CO2 [Moles/Vol] 22.4 mmol/L Normal 21.0-32.0 [facility] Comment on above: Performed By: #### L 500.2500 ####[facility] [address] [place], [address] Creatinine [Mass/Vol] 2.94 mg/dL High 0.70-1.20 [facility] Comment on above: Performed By: #### L 500.2500 ####[facility] [address] [place], [address] ECRCL 17.78 ml/min Low 50-250 [facility] Comment on above: Performed By: #### L 500.2500 ####[facility] [address] [place], [address] GAP 14 Normal 5-15 [facility] Comment on above: Performed By: #### L 500.2500 ####[facility] [address] [place], [address] GFR/1.73 sq M.predicted among non-blacks MDRD (S/P/Bld) [Vol rate/Area] 21 mL/min/{1.73_m2} Low >60 [facility] Comment on above: Result Comment: mL/m in/1.73m2 CKD-EPI Creatinine Equation (2020) Performed By: #### L 500.2500 ####[facility] [address] [place], [address] Glucose [Mass/Vol] 136 mg/dL High 70-99 [facility] Comment on above: Performed By: #### L 500.2500 ####[facility] [address] [place], [address] Potassium [Moles/Vol] 4.5 mmol/L Normal 3.3-5.1 [facility] Comment on above: Performed By: #### L 500.2500 ####[facility] [address] [place], [address] Sodium [Moles/Vol] 138 mmol/L Normal 133-145 [facility] Comment on above: Performed By: #### L 500.2500 ####[facility] [address] [place], [address] Urea nitrogen [Mass/Vol] 80 mg/dL High 4-19 [facility] Comment on above: Performed By: #### L 500.2500 ####[facility] [address] [place], [address] Bedside Glucoseon 04-21-2025 FINGERSTICK GLU 341 mg/dL High 74-106 [facility] Comment on above: Result Comment: ADITI GEMENT OF PATIENT CARE PER NURSING PROTOCOL Performed By: #### L 501.080 ####[facility] [address] [place], [address] FINGERSTICK GLU 279 mg/dL High 74-106 [facility] Comment on above: Result Comment: ADITI GEMENT OF PATIENT CARE PER NURSING PROTOCOL Performed By: #### L 501.080 ####[facility] [address] [place], [address] FINGERSTICK GLU 201 mg/dL High 74-106 [facility] Comment on above: Result Comment: ADITI GEMENT OF PATIENT CARE PER NURSING PROTOCOL Performed By: #### L 501.080 ####[facility] [address] [place], [address] FINGERSTICK GLU 150 mg/dL High 74-106 [facility] Comment on above: Result Comment: ADITI GEMENT OF PATIENT CARE PER NURSING PROTOCOL Performed By: #### L 501.080 ####[facility] [address] [place], [address] Stool Occult Blood iFOBon STOB Positive Normal [facility] Comment on above: Performed By: #### M 100.7900 ####[facility] [address] [place], [address] Stool gastrointestinal hemog lobin detection by immunologic methodOrdered By: Nancy Henson on 04-21-2025 Lower GI hemoglobin IA Ql (Stl) Positive Abnormal [facility] Absolute lymphocyte countOrd ered By: Nancy Henson on 04-20-2025 Lymphocytes Auto (Unsp spec) [#/Vol] 0.52 10*3/uL Low 0.83-4.51 [facility] Automated lymphocyte count a s percentage of total leukocytesOrdered By: Nancy Henson on 04-20-2025 Lymphocytes/100 WBC Auto (Unsp spec) 3.5 % Low 19-41 [facility] Basophil percentageOrdered B y: Nancy Henson on 04-20-2025 Basophils/100 WBC (Bld) 0.1 % 0-1 [facility] Bedside Glucoseon 04-20-2025 FINGERSTICK GLU 241 mg/dL High 74-106 [facility] Comment on above: Result Comment: ADITI GEMENT OF PATIENT CARE PER NURSING PROTOCOL Performed By: #### L 501.080 ####[facility] [address] [place], [address] FINGERSTICK GLU 337 mg/dL High 74-106 [facility] Comment on above: Result Comment: ADITI GEMENT OF PATIENT CARE PER NURSING PROTOCOL Performed By: #### L 501.080 ####[facility] [address] [place], [address] FINGERSTICK GLU 391 mg/dL High 74-106 [facility] Comment on above: Result Comment: ADITI GEMENT OF PATIENT CARE PER NURSING PROTOCOL Performed By: #### L 501.080 ####[facility] [address] [place], [address] FINGERSTICK GLU 362 mg/dL High 74-106 [facility] Comment on above: Result Comment: ADITI GEMENT OF PATIENT CARE PER NURSING PROTOCOL Performed By: #### L 501.080 ####[facility] [address] [place], [address] Bilirubin, totalOrdered By: Nancy Henson on 04-20-2025 Bilirubin [Mass/Vol] 0.35 mg/dL 0.00-1.30 [facility] CBC W/Diff, Automatedon 04-02 Absolute Lymph 0.52 X10 3/uL Low 0.83-4.51 [facility] Comment on above: Performed By: #### L 500.4050, L100.0100 ####[facility] [address] [place], [address] Absolute Neut 14.0 X10 3/uL High 2.0-7.7 [facility] Comment on above: Performed By: #### L 500.4050, L100.0100 ####[facility] [address] [place], [address] Basophils/100 WBC (Bld) 0.1 % Normal 0-1 [facility] Comment on above: Performed By: #### L 500.4050, L100.0100 ####[facility] [address] [place], [address] Eosinophils/100 WBC (Bld) 0.0 % Normal 0-5 [facility] Comment on above: Performed By: #### L 500.4050, L100.0100 ####[facility] [address] [place], [address] Erythrocyte distribution width (RBC) [Ratio] 13.6 % Normal 11.6-14.6 [facility] Comment on above: Performed By: #### L 500.4050, L100.0100 ####[facility] [address] [place], [address] Hematocrit (Bld) [Volume fraction] 24.6 % Low 40-54 [facility] Comment on above: Performed By: #### L 500.4050, L100.0100 ####[facility] [address] [place], [address] Hemoglobin (Bld) [Mass/Vol] 7.9 g/dL Low 13.0-16.5 [facility] Comment on above: Performed By: #### L 500.4050, L100.0100 ####[facility] [address] [place], [address] IG% 0.800 Normal 0.0-0.9 [facility] Comment on above: Result Comment: IG% - Immature Granulocytes (promyelocytes, myelocytes andmetamyelocytes) > 1% indicates that a LEFT SHIFT is Present. Performed By: #### L 500.4050, L100.0100 ####[facility] [address] [place], [address] Lymphocytes/100 WBC (Bld) 3.5 % Low 19-41 [facility] Comment on above: Performed By: #### L 500.4050, L100.0100 ####[facility] [address] [place], [address] MCH (RBC) [Entitic mass] 29.9 pg Normal 27.0-32.0 [facility] Comment on above: Performed By: #### L 500.4050, L100.0100 ####[facility] [address] [place], [address] MCHC (RBC) [Mass/Vol] 32.1 g/dL Normal 32-36 [facility] Comment on above: Performed By: #### L 500.4050, L100.0100 ####[facility] [address] [place], [address] MCV (RBC) [Entitic vol] 93.2 fL Normal 80-94 [facility] Comment on above: Performed By: #### L 500.4050, L100.0100 ####[facility] [address] [place], [address] Monocytes/100 WBC (Bld) 1.7 % Normal 0-10 [facility] Comment on above: Performed By: #### L 500.4050, L100.0100 ####[facility] [address] [place], [address] Neutrophils/100 WBC (Bld) 93.9 % High 47-70 [facility] Comment on above: Performed By: #### L 500.4050, L100.0100 ####[facility] [address] [place], [address] Nucleated RBC (Bld) [#/Vol] 0 10*3/uL Normal 0-5 [facility] Comment on above: Performed By: #### L 500.4050, L100.0100 ####[facility] [address] [place], [address] Platelet mean volume (Bld) [Entitic vol] 11.6 fL Normal 6.2-12.0 [facility] Comment on above: Performed By: #### L 500.4050, L100.0100 ####[facility] [address] [place], [address] Platelets (Bld) [#/Vol] 216 10*3/uL Normal 150-450 [facility] Comment on above: Performed By: #### L 500.4050, L100.0100 ####[facility] [address] [place], [address] RBC (Bld) [#/Vol] 2.64 10*6/uL Low 4.6-6.2 [facility] Comment on above: Performed By: #### L 500.4050, L100.0100 ####[facility] [address] [place], [address] RDW SD 46.0 fl High 35.1-43.9 [facility] Comment on above: Performed By: #### L 500.4050, L100.0100 ####[facility] [address] [place], [address] WBC (Bld) [#/Vol] 14.9 10*3/uL High 4.4-11.0 [facility] Comment on above: Performed By: #### L 500.4050, L100.0100 ####[facility] [address] [place], [address] Comprehensive Metabolic Prof [facility] 04-20-2025 Albumin [Mass/Vol] 3.7 g/dL Normal 3.4-4.8 [facility] Comment on above: Performed By: #### L 500.4050, L100.0100 ####[facility] [address] [place], [address] Albumin/Globulin [Mass ratio] 1.5 {ratio} Normal 0.9-2.4 [facility] Comment on above: Performed By: #### L 500.4050, L100.0100 ####[facility] [address] [place], [address] ALK PHOS 78 U/L Normal 40-129 [facility] Comment on above: Performed By: #### L 500.4050, L100.0100 ####[facility] [address] [place], [address] ALT [Catalytic activity/Vol] 27 U/L Normal <=46 [facility] Comment on above: Performed By: #### L 500.4050, L100.0100 ####[facility] [address] [place], [address] AST [Catalytic activity/Vol] 21 U/L Normal <=37 [facility] Comment on above: Performed By: #### L 500.4050, L100.0100 ####[facility] [address] [place], [address] Bilirubin [Mass/Vol] 0.35 mg/dL Normal 0.00-1.30 [facility] Comment on above: Performed By: #### L 500.4050, L100.0100 ####[facility] [address] [place], [address] BUN/CRE 24.4 RATIO High 10-20 [facility] Comment on above: Performed By: #### L 500.4050, L100.0100 ####[facility] [address] [place], [address] Calcium [Mass/Vol] 9.1 mg/dL Normal 7.6-11.0 [facility] Comment on above: Performed By: #### L 500.4050, L100.0100 ####[facility] [address] [place], [address] Chloride [Moles/Vol] 99 mmol/L Normal 98-108 [facility] Comment on above: Performed By: #### L 500.4050, L100.0100 ####[facility] [address] [place], [address] CO2 [Moles/Vol] 22.7 mmol/L Normal 21.0-32.0 [facility] Comment on above: Performed By: #### L 500.4050, L100.0100 ####[facility] [address] [place], [address] Creatinine [Mass/Vol] 2.95 mg/dL High 0.70-1.20 [facility] Comment on above: Performed By: #### L 500.4050, L100.0100 ####[facility] [address] [place], [address] ECRCL 17.72 ml/min Low 50-250 [facility] Comment on above: Performed By: #### L 500.4050, L100.0100 ####[facility] [address] [place], [address] GAP 15 Normal 5-15 [facility] Comment on above: Performed By: #### L 500.4050, L100.0100 ####[facility] [address] [place], [address] GFR/1.73 sq M.predicted among non-blacks MDRD (S/P/Bld) [Vol rate/Area] 21 mL/min/{1.73_m2} Low >60 [facility] Comment on above: Result Comment: mL/m in/1.73m2 CKD-EPI Creatinine Equation (2020) Performed By: #### L 500.4050, L100.0100 ####[facility] [address] [place], [address] Globulin (S) [Mass/Vol] 2.5 g/dL Normal 2.2-4.2 [facility] Comment on above: Performed By: #### L 500.4050, L100.0100 ####[facility] [address] [place], [address] Glucose [Mass/Vol] 375 mg/dL High 70-99 [facility] Comment on above: Performed By: #### L 500.4050, L100.0100 ####[facility] [address] [place], [address] Potassium [Moles/Vol] 4.7 mmol/L Normal 3.3-5.1 [facility] Comment on above: Performed By: #### L 500.4050, L100.0100 ####[facility] [address] [place], [address] Sodium [Moles/Vol] 136 mmol/L Normal 133-145 [facility] Comment on above: Performed By: #### L 500.4050, L100.0100 ####[facility] [address] [place], [address] T PROT 6.2 g/dL Normal 5.9-8.4 [facility] Comment on above: Performed By: #### L 500.4050, L100.0100 ####[facility] [address] [place], [address] Urea nitrogen [Mass/Vol] 72 mg/dL High 4-19 [facility] Comment on above: Performed By: #### L 500.4050, L100.0100 ####[facility] [address] [place], [address] Consultation - Cardiologyon 04-20-2025 Consultation - Cardiology Normal [facility] Electrocardiogram reportOrde red By: Barbie Martin on 04-20-2025 EKG study [facility] Work Phone: [phone] Eosinophil percentageOrdered By: Nancy Henson on 04-20-2025 Eosinophils/100 WBC (Bld) 0.0 % 0-5 [facility] Erythrocyte distribution wid th ratioOrdered By: Nancy Henson on 04-20-2025 Erythrocyte distribution width (RBC) [Ratio] 13.6 % 11.6-14.6 [facility] Erythrocyte distribution wid th standard deviationOrdered By: Nancy Henson on 04-20-2025 Erythrocyte distribution width (RBC) [Ratio] 46.0 fl High 35.1-43.9 [facility] Hematocrit Auto (Bld) [Volum e fraction]Ordered By: Nancy Henson on 04-20-2025 Hematocrit (Bld) [Volume fraction] 24.6 % Low 40-54 [facility] Hemoglobin measurementOrdere d By: Nancy Henson on 04-20-2025 Hemoglobin (Bld) [Mass/Vol] 7.9 g/dL Low 13.0-16.5 [facility] Immature granulocytes/100 WB C Auto (Bld)Ordered By: Nancy Henson on 04-20-2025 Immature granulocytes/100 WBC (Bld) 0.800 % 0.0-0.9 [facility] MCV (mean corpuscular volume ) determinationOrdered By: Nancy Henson on 04-20-2025 MCV (RBC) [Entitic vol] 93.2 fL 80-94 [facility] Mean corpuscular hemoglobin (MCH) determinationOrdered By: Nancy Henson on 04-20-2025 MCH (RBC) [Entitic mass] 29.9 pg 27.0-32.0 [facility] Monocyte percentageOrdered B y: Nancy Henson on 04-20-2025 Monocytes/100 WBC (Bld) 1.7 % 0-10 [facility] Neutrophil percentageOrdered By: Nancy Henson on 04-20-2025 Neutrophils/100 WBC (Bld) 93.9 % High 47-70 [facility] No Panel InformationOrdered By: Nancy Henson on 04-20-2025 21 U/L <38 [facility] Platelet countOrdered By: Juwan Henson on 04-20-2025 Platelets (Bld) [#/Vol] 216 10*3/uL 150-450 [facility] RBC Auto (Bld) [#/Vol]Ordere d By: Nancy Henson on 04-20-2025 RBC (Bld) [#/Vol] 2.64 10*6/uL Low 4.6-6.2 [facility] Serum globulin measurementOr dered By: Nancy Henson on 04-20-2025 Globulin (S) [Mass/Vol] 2.5 g/dL 2.2-4.2 [facility] Serum or plasma alanine clayton otransferase (ALT) measurementOrdered By: Nancy Henson on 04-20-2025 ALT [Catalytic activity/Vol] 27 U/L <47 [facility] Serum or plasma albumin nikkie urement (mass/volume)Ordered By: Nancy Henson on 04-20-2025 Albumin [Mass/Vol] 3.7 g/dL 3.4-4.8 [facility] Serum or plasma albumin/glob ulin mass ratioOrdered By: Nancy Henson on 04-20-2025 Albumin/Globulin [Mass ratio] 1.5 {ratio} 0.9-2.4 [facility] Serum or plasma alkaline dwight sphatase measurementOrdered By: Nancy Henson on 04-20-2025 ALP [Catalytic activity/Vol] 78 U/L 40-129 [facility] Total proteinOrdered By: Saravanan Henson on 04-20-2025 Protein [Mass/Vol] 6.2 g/dL 5.9-8.4 [facility] White blood cell (WBC) count Ordered By: Nancy Henson on 04-20-2025 WBC (Bld) [#/Vol] 14.9 10*3/uL High 4.4-11.0 [facility] 12 Lead EKGon 04-19-2025 12 Lead EKG Normal [facility] 12 Lead EKG Normal [facility] Absolute lymphocyte countOrd ered By: Arnulfo Jose on 04-19-2025 Lymphocytes Auto (Unsp spec) [#/Vol] 1.40 10*3/uL 0.83-4.51 [facility] Anion gap in Serum or Plasma Ordered By: Arnulfo Jose on 04-19-2025 Anion gap [Moles/Vol] 15 mmol/L 5-15 [facility] Assessment of wrist artery p atency prior to arterial punctureOrdered By: Nancy Henson on 04-19-2025 Arterial patency Wrist artery --pre arterial puncture N/A [facility] Arterial patency Wrist artery --pre arterial puncture Positive [facility] Automated lymphocyte count a s percentage of total leukocytesOrdered By: Arnulfo Jose on 04-19-2025 Lymphocytes/100 WBC Auto (Unsp spec) 10.0 % Low 19-41 [facility] BUN/creatinine ratioOrdered By: Arnulfo Jose on 04-19-2025 Urea nitrogen/Creatinine [Mass ratio] 23.8 mg/mg High 10-20 [facility] Basic Metabolic Profile (BMP )on 04-19-2025 BUN/CRE 24.8 RATIO High 10-20 [facility] Comment on above: Performed By: #### L 500.2500 ####[facility] [address] [place], [address] Calcium [Mass/Vol] 9.1 mg/dL Normal 7.6-11.0 [facility] Comment on above: Performed By: #### L 500.2500 ####[facility] [address] [place], [address] Chloride [Moles/Vol] 101 mmol/L Normal 98-108 [facility] Comment on above: Performed By: #### L 500.2500 ####[facility] [address] [place], [address] CO2 [Moles/Vol] 21.1 mmol/L Normal 21.0-32.0 [facility] Comment on above: Performed By: #### L 500.2500 ####[facility] [address] [place], [address] Creatinine [Mass/Vol] 2.79 mg/dL High 0.70-1.20 [facility] Comment on above: Performed By: #### L 500.2500 ####[facility] [address] [place], [address] ECRCL 18.74 ml/min Low 50-250 [facility] Comment on above: Performed By: #### L 500.2500 ####[facility] [address] [place], [address] GAP 15 Normal 5-15 [facility] Comment on above: Performed By: #### L 500.2500 ####[facility] [address] [place], [address] GFR/1.73 sq M.predicted among non-blacks MDRD (S/P/Bld) [Vol rate/Area] 22 mL/min/{1.73_m2} Low >60 [facility] Comment on above: Result Comment: mL/m in/1.73m2 CKD-EPI Creatinine Equation (2020) Performed By: #### L 500.2500 ####[facility] [address] [place], [address] Glucose [Mass/Vol] 447 mg/dL High 70-99 [facility] Comment on above: Performed By: #### L 500.2500 ####[facility] [address] [place], [address] Potassium [Moles/Vol] 4.9 mmol/L Normal 3.3-5.1 [facility] Comment on above: Performed By: #### L 500.2500 ####[facility] [address] [place], [address] Sodium [Moles/Vol] 137 mmol/L Normal 133-145 [facility] Comment on above: Performed By: #### L 500.2500 ####[facility] [address] [place], [address] Urea nitrogen [Mass/Vol] 69 mg/dL High 4-19 [facility] Comment on above: Performed By: #### L 500.2500 ####[facility] [address] [place], [address] BUN/CRE 23.8 RATIO High 10-20 [facility] Comment on above: Performed By: #### L 501.5200, L500.2500, L100.0100, L503.7505 ####[facility] [address] [place], [address] Calcium [Mass/Vol] 8.6 mg/dL Normal 7.6-11.0 [facility] Comment on above: Performed By: #### L 501.5200, L500.2500, L100.0100, L503.7505 ####[facility] [address] [place], [address] Chloride [Moles/Vol] 100 mmol/L Normal 98-108 [facility] Comment on above: Performed By: #### L 501.5200, L500.2500, L100.0100, L503.7505 ####[facility] [address] [place], [address] CO2 [Moles/Vol] 20.9 mmol/L Low 21.0-32.0 [facility] Comment on above: Performed By: #### L 501.5200, L500.2500, L100.0100, L503.7505 ####[facility] [address] [place], [address] Creatinine [Mass/Vol] 2.73 mg/dL High 0.70-1.20 [facility] Comment on above: Performed By: #### L 501.5200, L500.2500, L100.0100, L503.7505 ####[facility] [address] [place], [address] ECRCL 19.84 ml/min Low 50-250 [facility] Comment on above: Performed By: #### L 501.5200, L500.2500, L100.0100, L503.7505 ####[facility] [address] [place], [address] GAP 15 Normal 5-15 [facility] Comment on above: Performed By: #### L 501.5200, L500.2500, L100.0100, L503.7505 ####[facility] [address] [place], [address] GFR/1.73 sq M.predicted among non-blacks MDRD (S/P/Bld) [Vol rate/Area] 23 mL/min/{1.73_m2} Low >60 [facility] Comment on above: Result Comment: mL/m in/1.73m2 CKD-EPI Creatinine Equation (2020) Performed By: #### L 501.5200, L500.2500, L100.0100, L503.7505 ####[facility] [address] [place], [address] Glucose [Mass/Vol] 406 mg/dL High 70-99 [facility] Comment on above: Performed By: #### L 501.5200, L500.2500, L100.0100, L503.7505 ####[facility] [address] [place], [address] Potassium [Moles/Vol] 5.9 mmol/L High 3.3-5.1 [facility] Comment on above: Performed By: #### L 501.5200, L500.2500, L100.0100, L503.7505 ####[facility] [address] [place], [address] Sodium [Moles/Vol] 136 mmol/L Normal 133-145 [facility] Comment on above: Performed By: #### L 501.5200, L500.2500, L100.0100, L503.7505 ####[facility] [address] [place], [address] Urea nitrogen [Mass/Vol] 65 mg/dL High 4-19 [facility] Comment on above: Performed By: #### L 501.5200, L500.2500, L100.0100, L503.7505 ####[facility] [address] [place], [address] Basophil percentageOrdered B y: Arnulfo Jose on 04-19-2025 Basophils/100 WBC (Bld) 0.5 % 0-1 [facility] Bedside Glucoseon 04-19-2025 FINGERSTICK GLU 393 mg/dL High 74-106 [facility] Comment on above: Result Comment: ADITI GEMENT OF PATIENT CARE PER NURSING PROTOCOL Performed By: #### L 501.080 ####[facility] [address] [place], [address] FINGERSTICK GLU 374 mg/dL High [address] [place] [address] Comment on above: Result Comment: ADITI GEMENT OF PATIENT CARE PER NURSING PROTOCOL Performed By: #### L 501.080 ####[facility] [address] [place], [address] FINGERSTICK GLU 376 mg/dL High [address] [place] [address] Comment on above: Result Comment: ADITI GEMENT OF PATIENT CARE PER NURSING PROTOCOL Performed By: #### L 501.080 ####[facility] [address] [place], [address] FINGERSTICK GLU 403 mg/dL High [address] [place] [address] Comment on above: Result Comment: ADITI GEMENT OF PATIENT CARE PER NURSING PROTOCOL Performed By: #### L 501.080 ####[facility] [address] [place], [address] FINGERSTICK GLU 437 mg/dL High [address] [place] [address] Comment on above: Result Comment: ADITI GEMENT OF PATIENT CARE PER NURSING PROTOCOL Performed By: #### L 501.080 ####[facility] [address] [place], [address] Bilirubin Test strip Ql (U)O rdered By: Nancy Henson on 04-19-2025 Bilirubin Ql (U) Negative Negative [facility] Blood Gases by CPSon 025 FILI TEST N/A Normal [facility] Comment on above: Performed By: #### L 9000.0800 ####[facility] [address] [place], [address] Base excess Calc (Bld) [Moles/Vol] -2 mmol/L Normal -2 to +2 [facility] Comment on above: Performed By: #### L 9000.0800 ####[facility] [address] [place], [address] Blood Gas Type ART Normal [facility] Comment on above: Performed By: #### L 9000.0800 ####[facility] [address] [place], [address] CO2 [Moles/Vol] 23 mmol/L Normal [facility] Comment on above: Performed By: #### L 9000.0800 ####[facility] [address] [place], [address] Comment AIRVO 50L 50% Normal [facility] Comment on above: Performed By: #### L 9000.0800 ####[facility] [address] [place], [address] HCO3 (Bld) [Moles/Vol] 22.4 mmol/L Normal 22-26 [facility] Comment on above: Performed By: #### L 9000.0800 ####[facility] [address] [place], [address] Mode Not entered Normal [facility] Comment on above: Performed By: #### L 9000.0800 ####[facility] [address] [place], [address] O2 Delivery Dev AIRVO Normal [facility] Comment on above: Performed By: #### L 9000.0800 ####[facility] [address] [place], [address] pCO2 33.2 mmHg Low 35-45 [facility] Comment on above: Performed By: #### L 9000.0800 ####[facility] [address] [place], [address] pH (Bld) 7.44 [pH] Normal 7.35-7.45 [facility] Comment on above: Performed By: #### L 9000.0800 ####[facility] [address] [place], [address] PO2 92 mmHG Normal 75-100 [facility] Comment on above: Performed By: #### L 9000.0800 ####[facility] [address] [place], [address] SITE L Radial Normal [facility] Comment on above: Performed By: #### L 9000.0800 ####[facility] [address] [place], [address] SO2 98 Normal 95-99 [facility] Comment on above: Performed By: #### L 9000.0800 ####[facility] [address] [place], [address] FILI TEST Positive Normal [facility] Comment on above: Performed By: #### L 9000.0800 ####[facility] [address] [place], [address] Base excess Calc (Bld) [Moles/Vol] -2 mmol/L Normal -2 to +2 [facility] Comment on above: Performed By: #### L 9000.0800 ####[facility] [address] [place], [address] Blood Gas Type ART Normal [facility] Comment on above: Performed By: #### L 9000.0800 ####[facility] [address] [place], [address] CO2 [Moles/Vol] 23 mmol/L Normal [facility] Comment on above: Performed By: #### L 0.0800 ####[facility] [address] [place], [address] FI02 50.0 Normal [facility] Comment on above: Performed By: #### L 9000.0800 ####[facility] [address] [place], [address] HCO3 (Bld) [Moles/Vol] 21.6 mmol/L Low 22-26 [facility] Comment on above: Performed By: #### L 9000.0800 ####[facility] [address] [place], [address] Mode Not entered [facility] Comment on above: Performed By: #### L 9000.0800 ####[facility] [address] [place], [address] O2 Delivery Dev HFNC Normal [facility] Comment on above: Performed By: #### L 0.0800 ####[facility] [address] [place], [address] pCO2 30.8 mmHg Low 35-45 [facility] Comment on above: Performed By: #### L 9000.0800 ####[facility] [address] [place], [address] pH (Bld) 7.45 [pH] Normal 7.35-7.45 [facility] Comment on above: Performed By: #### L 9000.0800 ####[facility] [address] [place], [address] PO2 103 mmHG High 75-100 [facility] Comment on above: Performed By: #### L 9000.0800 ####[facility] [address] [place], [address] SITE L Radial Normal [facility] Comment on above: Performed By: #### L 0.0800 ####[facility] [address] [place], [address] SO2 98 Normal 95-99 [facility] Comment on above: Performed By: #### L 9000.0800 ####[facility] [address] [place], [address] Blood base excess determinat ionOrdered By: Nancy Henson on 04-19-2025 Base excess Calc (BldV) [Moles/Vol] -2 mmol/L -2-2 [facility] Base excess Calc (BldV) [Moles/Vol] -2 mmol/L -2-2 [facility] Blood bicarbonate measuremen tOrdered By: Nancy Henson on 04-19-2025 HCO3 (Bld) [Moles/Vol] 22.4 mmol/L 22- [facility] HCO3 (Bld) [Moles/Vol] 21.6 mmol/L Low - W [facility] CBC W/Diff, Automatedon 04-01 Absolute Lymph 0.33 X10 3/uL Low 0.83-4.51 [facility] Comment on above: Performed By: #### L 501.9985, L100.0100, L501.2300 ####[facility] [address] [place], [address] Absolute Neut 12.7 X10 3/uL High 2.0-7.7 [facility] Comment on above: Performed By: #### L 501.9985, L100.0100, L501.2300 ####[facility] [address] [place], [address] Basophils/100 WBC (Bld) 0.2 % Normal 0-1 [facility] Comment on above: Performed By: #### L 501.9985, L100.0100, L501.2300 ####[facility] [address] [place], [address] Eosinophils/100 WBC (Bld) 0.1 % Normal 0-5 [facility] Comment on above: Performed By: #### L 501.9985, L100.0100, L501.2300 ####[facility] [address] [place], [address] Erythrocyte distribution width (RBC) [Ratio] 13.4 % Normal 11.6-14.6 [facility] Comment on above: Performed By: #### L 501.9985, L100.0100, L501.2300 ####[facility] [address] [place], [address] Hematocrit (Bld) [Volume fraction] 23.7 % Low 40-54 [facility] Comment on above: Performed By: #### L 501.9985, L100.0100, L501.2300 ####[facility] [address] [place], [address] Hemoglobin (Bld) [Mass/Vol] 7.5 g/dL Low 13.0-16.5 [facility] Comment on above: Performed By: #### L 501.9985, L100.0100, L501.2300 ####[facility] [address] [place], [address] IG% 0.600 Normal 0.0-0.9 [facility] Comment on above: Result Comment: IG% - Immature Granulocytes (promyelocytes, myelocytes andmetamyelocytes) > 1% indicates that a LEFT SHIFT is Present. Performed By: #### L 501.9985, L100.0100, L501.2300 ####[facility] [address] [place], [address] Lymphocytes/100 WBC (Bld) 2.4 % Low 19-41 [facility] Comment on above: Performed By: #### L 501.9985, L100.0100, L501.2300 ####[facility] [address] [place], [address] MCH (RBC) [Entitic mass] 29.8 pg Normal 27.0-32.0 [facility] Comment on above: Performed By: #### L 501.9985, L100.0100, L501.2300 ####[facility] [address] [place], [address] MCHC (RBC) [Mass/Vol] 31.6 g/dL Low 32-36 [facility] Comment on above: Performed By: #### L 501.9985, L100.0100, L501.2300 ####[facility] [address] [place], [address] MCV (RBC) [Entitic vol] 94.0 fL Normal 80-94 [facility] Comment on above: Performed By: #### L 501.9985, L100.0100, L501.2300 ####[facility] [address] [place], [address] Monocytes/100 WBC (Bld) 2.4 % Normal 0-10 [facility] Comment on above: Performed By: #### L 501.9985, L100.0100, L501.2300 ####[facility] [address] [place], [address] Neutrophils/100 WBC (Bld) 94.3 % High 47-70 [facility] Comment on above: Performed By: #### L 501.9985, L100.0100, L501.2300 ####[facility] [address] [place], [address] Nucleated RBC (Bld) [#/Vol] 0 10*3/uL Normal 0-5 [facility] Comment on above: Performed By: #### L 501.9985, L100.0100, L501.2300 ####[facility] [address] [place], [address] Platelet mean volume (Bld) [Entitic vol] 11.3 fL Normal 6.2-12.0 [facility] Comment on above: Performed By: #### L 501.9985, L100.0100, L501.2300 ####[facility] [address] [place], [address] Platelets (Bld) [#/Vol] 218 10*3/uL Normal 150-450 [facility] Comment on above: Performed By: #### L 501.9985, L100.0100, L501.2300 ####[facility] [address] [place], [address] RBC (Bld) [#/Vol] 2.52 10*6/uL Low 4.6-6.2 [facility] Comment on above: Performed By: #### L 501.9985, L100.0100, L501.2300 ####[facility] [address] [place], [address] RDW SD 46.2 fl High 35.1-43.9 [facility] Comment on above: Performed By: #### L 501.9985, L100.0100, L501.2300 ####[facility] [address] [place], [address] WBC (Bld) [#/Vol] 13.5 10*3/uL High 4.4-11.0 [facility] Comment on above: Performed By: #### L 501.9985, L100.0100, L501.2300 ####[facility] [address] [place], [address] Absolute Lymph 1.40 X10 3/uL Normal 0.83-4.51 [facility] Comment on above: Performed By: #### L 501.5200, L500.2500, L100.0100, L503.7505 ####[facility] [address] [place], [address] Absolute Neut 11.5 X10 3/uL High 2.0-7.7 [facility] Comment on above: Performed By: #### L 501.5200, L500.2500, L100.0100, L503.7505 ####[facility] [address] [place], [address] Basophils/100 WBC (Bld) 0.5 % Normal 0-1 [facility] Comment on above: Performed By: #### L 501.5200, L500.2500, L100.0100, L503.7505 ####[facility] [address] [place], [address] Eosinophils/100 WBC (Bld) 1.0 % Normal 0-5 [facility] Comment on above: Performed By: #### L 501.5200, L500.2500, L100.0100, L503.7505 ####[facility] [address] [place], [address] Erythrocyte distribution width (RBC) [Ratio] 13.4 % Normal 11.6-14.6 [facility] Comment on above: Performed By: #### L 501.5200, L500.2500, L100.0100, L503.7505 ####[facility] [address] [place], [address] Hematocrit (Bld) [Volume fraction] 27.5 % Low 40-54 [facility] Comment on above: Performed By: #### L 501.5200, L500.2500, L100.0100, L503.7505 ####[facility] [address] [place], [address] Hemoglobin (Bld) [Mass/Vol] 8.8 g/dL Low 13.0-16.5 [facility] Comment on above: Performed By: #### L 501.5200, L500.2500, L100.0100, L503.7505 ####[facility] [address] [place], [address] IG% 0.500 Normal 0.0-0.9 [facility] Comment on above: Result Comment: IG% - Immature Granulocytes (promyelocytes, myelocytes andmetamyelocytes) > 1% indicates that a LEFT SHIFT is Present. Performed By: #### L 501.5200, L500.2500, L100.0100, L503.7505 ####[facility] [address] [place], [address] Lymphocytes/100 WBC (Bld) 10.0 % Low 19-41 [facility] Comment on above: Performed By: #### L 501.5200, L500.2500, L100.0100, L503.7505 ####[facility] [address] [place], [address] MCH (RBC) [Entitic mass] 30.0 pg Normal 27.0-32.0 [facility] Comment on above: Performed By: #### L 501.5200, L500.2500, L100.0100, L503.7505 ####[facility] [address] [place], [address] MCHC (RBC) [Mass/Vol] 32.0 g/dL Normal 32-36 [facility] Comment on above: Performed By: #### L 501.5200, L500.2500, L100.0100, L503.7505 ####[facility] [address] [place], [address] MCV (RBC) [Entitic vol] 93.9 fL Normal 80-94 [facility] Comment on above: Performed By: #### L 501.5200, L500.2500, L100.0100, L503.7505 ####[facility] [address] [place], [address] Monocytes/100 WBC (Bld) 5.7 % Normal 0-10 [facility] Comment on above: Performed By: #### L 501.5200, L500.2500, L100.0100, L503.7505 ####[facility] [address] [place], [address] Neutrophils/100 WBC (Bld) 82.3 % High 47-70 [facility] Comment on above: Performed By: #### L 501.5200, L500.2500, L100.0100, L503.7505 ####[facility] [address] [place], [address] Nucleated RBC (Bld) [#/Vol] 0 10*3/uL Normal 0-5 [facility] Comment on above: Performed By: #### L 501.5200, L500.2500, L100.0100, L503.7505 ####[facility] [address] [place], [address] Platelet mean volume (Bld) [Entitic vol] 11.4 fL Normal 6.2-12.0 [facility] Comment on above: Performed By: #### L 501.5200, L500.2500, L100.0100, L503.7505 ####[facility] [address] [place], [address] Platelets (Bld) [#/Vol] 289 10*3/uL Normal 150-450 [facility] Comment on above: Performed By: #### L 501.5200, L500.2500, L100.0100, L503.7505 ####[facility] [address] [place], [address] RBC (Bld) [#/Vol] 2.93 10*6/uL Low 4.6-6.2 [facility] Comment on above: Performed By: #### L 501.5200, L500.2500, L100.0100, L503.7505 ####[facility] [address] [place], [address] RDW SD 46.1 fl High 35.1-43.9 [facility] Comment on above: Performed By: #### L 501.5200, L500.2500, L100.0100, L503.7505 ####[facility] [address] [place], [address] WBC (Bld) [#/Vol] 14.0 10*3/uL High 4.4-11.0 [facility] Comment on above: Performed By: #### L 501.5200, L500.2500, L100.0100, L503.7505 ####[facility] [address] [place], [address] Carbon dioxide, total [Moles /volume] in Central venous bloodOrdered By: Arnulfo Jose on 04-19-2025 CO2 [Moles/Vol] 20.9 mmol/L Low 21.0-32.0 [facility] Chest 1 View (Portable)on Chest 1 View (Portable) Normal [facility] Chloride assayOrdered By: Stephenie Jose on 04-19-2025 Chloride [Moles/Vol] 100 mmol/L 98-108 [facility] Comprehensive Metabolic Prof ilon 04-19-2025 Albumin [Mass/Vol] 3.3 g/dL Low 3.4-4.8 [facility] Comment on above: Performed By: #### L 501.9520, L503.7505, L500.4050 ####[facility] [address] [place], [address] Albumin/Globulin [Mass ratio] 1.3 {ratio} Normal 0.9-2.4 [facility] Comment on above: Performed By: #### L 501.9520, L503.7505, L500.4050 ####[facility] [address] [place], [address] ALK PHOS 76 U/L Normal 40-129 [facility] Comment on above: Performed By: #### L 501.9520, L503.7505, L500.4050 ####[facility] [address] [place], [address] ALT [Catalytic activity/Vol] 30 U/L Normal <=46 [facility] Comment on above: Performed By: #### L 501.9520, L503.7505, L500.4050 ####[facility] [address] [place], [address] AST [Catalytic activity/Vol] 26 U/L Normal <=37 [facility] Comment on above: Performed By: #### L 501.9520, L503.7505, L500.4050 ####[facility] [address] [place], [address] Bilirubin [Mass/Vol] 0.31 mg/dL Normal 0.00-1.30 [facility] Comment on above: Performed By: #### L 501.9520, L503.7505, L500.4050 ####[facility] [address] [place], [address] BUN/CRE 23.4 RATIO High 10-20 [facility] Comment on above: Performed By: #### L 501.9520, L503.7505, L500.4050 ####[facility] [address] [place], [address] Calcium [Mass/Vol] 9.3 mg/dL Normal 7.6-11.0 [facility] Comment on above: Performed By: #### L 501.9520, L503.7505, L500.4050 ####[facility] [address] [place], [address] Chloride [Moles/Vol] 101 mmol/L Normal 98-108 [facility] Comment on above: Performed By: #### L 501.9520, L503.7505, L500.4050 ####[facility] [address] [place], [address] CO2 [Moles/Vol] 17.8 mmol/L Low 21.0-32.0 [facility] Comment on above: Performed By: #### L 501.9520, L503.7505, L500.4050 ####[facility] [address] [place], [address] Creatinine [Mass/Vol] 2.95 mg/dL High 0.70-1.20 [facility] Comment on above: Performed By: #### L 501.9520, L503.7505, L500.4050 ####[facility] [address] [place], [address] ECRCL 17.72 ml/min Low 50-250 [facility] Comment on above: Performed By: #### L 501.9520, L503.7505, L500.4050 ####[facility] [address] [place], [address] GAP 18 High 5-15 [facility] Comment on above: Performed By: #### L 501.9520, L503.7505, L500.4050 ####[facility] [address] [place], [address] GFR/1.73 sq M.predicted among non-blacks MDRD (S/P/Bld) [Vol rate/Area] 21 mL/min/{1.73_m2} Low >60 [facility] Comment on above: Result Comment: mL/m in/1.73m2 CKD-EPI Creatinine Equation (2020) Performed By: #### L 501.9520, L503.7505, L500.4050 ####[facility] [address] [place], [address] Globulin (S) [Mass/Vol] 2.5 g/dL Normal 2.2-4.2 [facility] Comment on above: Performed By: #### L 501.9520, L503.7505, L500.4050 ####[facility] [address] [place], [address] Glucose [Mass/Vol] 447 mg/dL High 70-99 [facility] Comment on above: Performed By: #### L 501.9520, L503.7505, L500.4050 ####[facility] [address] [place], [address] Potassium [Moles/Vol] 5.2 mmol/L High 3.3-5.1 [facility] Comment on above: Performed By: #### L 501.9520, L503.7505, L500.4050 ####[facility] [address] [place], [address] Sodium [Moles/Vol] 137 mmol/L Normal 133-145 [facility] Comment on above: Performed By: #### L 501.9520, L503.7505, L500.4050 ####[facility] [address] [place], [address] T PROT 5.8 g/dL Low 5.9-8.4 [facility] Comment on above: Performed By: #### L 501.9520, L503.7505, L500.4050 ####[facility] [address] [place], [address] Urea nitrogen [Mass/Vol] 69 mg/dL High 4-19 [facility] Comment on above: Performed By: #### L 501.9520, L503.7505, L500.4050 ####[facility] [address] [place], [address] Consultation - Nephrologyon 04-19-2025 Consultation - Nephrology Normal [facility] D-Dimer Quantitative (DVT/PE )on 04-19-2025 D-DIMER QUANT 2.17 FEU/ug/m Invalid Interpretation Code 0.27-0.49 [facility] Comment on above: Result Comment: D-Di shyanne ELEVATED (>0.49): Additional studies and clinicalassessments are indicated to conclude diagnosis of:Deep Vein Thrombosis (DVT) or Pulmonary Embolism (PE)CRITICAL VALUE CALLED TO DELFIN ALBRIGHT04/19/25 0101 Lydia Villanueva.RESULTS READ BACK BY SAME. Performed By: #### L 509.7001, L300.8000 ####[facility] [address] [place], [place], [address] Emergency Department Summary on 04-19-2025 Emergency Department Summary Normal [facility] Eosinophil percentageOrdered By: Arnuflo Jose on 04-19-2025 Eosinophils/100 WBC (Bld) 1.0 % 0-5 [facility] Erythrocyte distribution wid th ratioOrdered By: Arnulfo Jose on 04-19-2025 Erythrocyte distribution width (RBC) [Ratio] 13.4 % 11.6-14.6 [facility] Erythrocyte distribution wid th standard deviationOrdered By: Arnulfo Jose on 04-19-2025 Erythrocyte distribution width (RBC) [Ratio] 46.1 fl High 35.1-43.9 [facility] Glomerular filtration rate ( GFR) estimation/1.73 sq m using serum, plasma, or whole bOrdered By: Arnulfo Jose on 04-19-2025 GFR/1.73 sq M.predicted among non-blacks MDRD (S/P/Bld) [Vol rate/Area] 23 mL/min/{1.73_m2} Low >60 [facility] Glucose measurement at [facility] deOrdered By: Nancy Henson on 04-19-2025 Glucose [Mass/Vol] 437 mg/dL High 74-106 [facility] H AND P Exam - Hospitaliston 04-19-2025 H&P Exam - Hospitalist Normal [facility] Hematocrit Auto (Bld) [Volum e fraction]Ordered By: Arnulfo Jose on 04-19-2025 Hematocrit (Bld) [Volume fraction] 27.5 % Low 40-54 [facility] Hemoglobin A1con 04-19-2025 HbA1c (Bld) [Mass fraction] 7.1 % High <=5.6 [facility] Comment on above: Result Comment: Norm al < 5.7 % Prediabetic 5.7 - 6.4 % Diabetic >or= 6.5 % Please note range changes. Performed By: #### L 501.9985, L100.0100, L501.2300 ####[facility] [address] [place], [place], [address] Hemoglobin A1c percentageOrd ered By: Nancy Henson on 04-19-2025 HbA1c (Bld) [Mass fraction] 7.1 % High <5.7 [facility] Hemoglobin measurementOrdere d By: Arnulfo Jose on 04-19-2025 Hemoglobin (Bld) [Mass/Vol] 8.8 g/dL Low 13.0-16.5 [facility] Immature granulocytes/100 WB C Auto (Bld)Ordered By: Arnulfo Jose on 04-19-2025 Immature granulocytes/100 WBC (Bld) 0.500 % 0.0-0.9 [facility] Influenza virus A and B and SARS-CoV-2 (COVID-19) and Respiratory syncytial virus RNAOrdered By: Arnulfo Jose on 04-19-2025 SARS-CoV-2 (COVID-19) RNA ALICE+probe Ql (Unsp spec) [facility] Ketones Test strip Ql (U)Ord ered By: Nancy Henson on 04-19-2025 Ketones Ql (U) Negative Negative [facility] L499.0042on 04-19-2025 Trop T High Sen 385 ng/L Invalid Interpretation Code <=22 [facility] Comment on above: Result Comment: Crit ical Result(s) Called at 0636: by: BIPIN BROWNE. ??Results read back by same. Performed By: #### L 499.0042 ####[facility] [address] [place], [place], [address] L499.0043on 04-19-2025 Trop T High Sen 350 ng/L Invalid Interpretation Code <=22 [facility] Comment on above: Result Comment: Crit ical Result(s) Called at: 04/19/2025-10:51 by: Neal Fowler.??Results read back by same. Performed By: #### L 499.0043 ####[facility] [address] [place], [address] L501.4021on 04-19-2025 Trop T High Sen 394 ng/L Invalid Interpretation Code <=22 [facility] Comment on above: Result Comment: Crit ical Result(s) Called at 0511: by: BIPIN MEGHNA SILVERMAN.??Results read back by same. Performed By: #### L 501.4021 ####[facility] [address] [facility] [place], [address] L503.7505on 04-19-2025 Natriuretic peptide B (Bld) [Mass/Vol] 16275 pg/mL High <=1800 [facility] Comment on above: Result Comment: Hear t Failure Unlikely: < 300 pg/mLHeart Failure Likely< 50 Years: > 450 pg/mL50-75 Years: > 900 pg/mL>75 Years: > 1800 pg/mL Performed By: #### L 501.9520, L503.7505, L500.4050 ####[facility] [address] [place], [address] Natriuretic peptide B (Bld) [Mass/Vol] 93232 pg/mL High <=1800 [facility] Comment on above: Result Comment: Hear t Failure Unlikely: < 300 pg/mLHeart Failure Likely< 50 Years: > 450 pg/mL50-75 Years: > 900 pg/mL>75 Years: > 1800 pg/mL Performed By: #### L 501.5200, L500.2500, L100.0100, L503.7505 ####[facility] [address] [place], [address] L509.7001on 04-19-2025 Procalcitonin 0.10 ng/mL Normal <=0.10 [facility] Comment on above: Result Comment: Inte rpretation:<0.10-0.25 ng/mL: Antibiotic therapy discouraged. Bacterialinfection unlikely.0.25-0.50 ng/mL: Antibiotic therapy encouraged. Bacterialinfection possible.>0.50 ng/mL: Antibiotic therapy strongly encouraged.Suggestive of presence of bacterial infection.PCT should always be interpreted in the clinical context ofthe patient. Therefore, clinicians should use the PCTresults in conjunction with other laboratory findings andclinical signs of the patient. Performed By: #### L 509.7001, L300.8000 ####[facility] [address] [place], [address] Lactic Acidon 04-19-2025 Lactate [Moles/Vol] 2.7 mmol/L Invalid Interpretation Code 0.0-2.0 [facility] Comment on above: Result Comment: Crit ical Result(s) Called at: 04/19/2025-10:35 by: Iraida.??Results read back by same. Performed By: #### L 534.6009 ####[facility] [address] [place], [address] Lactate [Moles/Vol] 4.8 mmol/L Invalid Interpretation Code 0.0-2.0 [facility] Comment on above: Order Comment: Y Result Comment: Crit ical Result(s) Called at 0448: by: BIPIN BROWNE. ??Results read back by same. Performed By: #### L [id number] ####[facility] [address] [place], [place], [address] Lung Scan Vent/Perfon 2024 Lung Scan Vent/Perf Normal [facility] M100.678on 04-19-2025 M100.678 SARS-CoV-2 (COVID 19) Negative INFLUENZA A Negative INFLUENZA B Negative RSV PCR Negative Normal [facility] Comment on above: Performed By: #### M 100.678 ####[facility] [address] [place], [place], [address] MCV (mean corpuscular volume ) determinationOrdered By: Arnulfo Jose on 04-19-2025 MCV (RBC) [Entitic vol] 93.9 fL 80-94 [facility] Magnesiumon 04-19-2025 Magnesium [Mass/Vol] 2.3 mg/dL High 1.5-2.2 [facility] Comment on above: Performed By: #### L 501.5200, L500.2500, L100.0100, L503.7505 ####[facility] [address] [place], [place], [address] Magnesium measurement (mass/ volume)Ordered By: Arnulfo Jose on 04-19-2025 Magnesium (Unsp spec) [Mass/Vol] 2.3 mg/dL High 1.5-2.2 [facility] Mean corpuscular hemoglobin (MCH) determinationOrdered By: Arnulfo Jose on 04-19-2025 MCH (RBC) [Entitic mass] 30.0 pg 27.0-32.0 [facility] Measurement, pHOrdered By: Nadeem Henson on 04-19-2025 pH (Unsp spec) 7.44 [pH] 7.35-7.45 [facility] pH (Unsp spec) 7.45 [pH] 7.35-7.45 [facility] Monocyte percentageOrdered B y: Arnulfo Jose on 04-19-2025 Monocytes/100 WBC (Bld) 5.7 % 0-10 [facility] Mucus LM Ql (Urine sed)Order ed By: Nancy Henson on 04-19-2025 Mucus Ql (Urine sed) 0 SEEN /hpf [facility] Natriuretic peptide.B prohor katja N-Terminal [Mass/volume] in Serum or PlasmaOrdered By: Nancy Henson on 04-19-2025 Natriuretic peptide.B prohormone N-Terminal [Mass/Vol] 97072 pg/mL High <1800 [facility] Natriuretic peptide.B prohor katja N-Terminal [Mass/volume] in Serum or PlasmaOrdered By: Arnulfo Jose on 04-19-2025 Natriuretic peptide.B prohormone N-Terminal [Mass/Vol] 89035 pg/mL High <1800 [facility] Neutrophil percentageOrdered By: Arnulfo Jose on 04-19-2025 Neutrophils/100 WBC (Bld) 82.3 % High 47-70 [facility] Nitrite Test strip Ql (U)Ord ered By: Nancy Henson on 04-19-2025 Nitrite Ql (U) Negative Negative [facility] No Panel InformationOrdered By: Nancy Henson on 04-19-2025 ART [facility] L Radial [facility] Not entered [facility] AIRVO [facility] AIRVO 50L 50% [facility] ART [facility] L Radial [facility] Not entered [facility] HFNC [facility] Phosphoruson 04-19-2025 Phosphate [Mass/Vol] 4.0 mg/dL Normal 2.7-4.5 [facility] Comment on above: Performed By: #### L 501.9985, L100.0100, L501.2300 ####[facility] [address] [place], [address] Platelet countOrdered By: Stephenie Jose on 04-19-2025 Platelets (Bld) [#/Vol] 289 10*3/uL 150-450 [facility] Potassium measurement (mass/ volume)Ordered By: Arnulfo Jose on 04-19-2025 Potassium (Unsp spec) [Mass/Vol] 5.9 mmol/L High 3.3-5.1 [facility] Procalcitonin [Mass/volume] in Serum or Plasma by ImmunoassayOrdered By: Arnulfo Jose on 04-19-2025 Procalcitonin IA [Mass/Vol] 0.10 ng/mL <0.11 [facility] Protein Test strip Ql (U)Ord ered By: Nancy Henson on 04-19-2025 Protein Ql (U) 30 mg/dl High Negative [facility] RBC Auto (Bld) [#/Vol]Ordere d By: Arnulfo Jose on 04-19-2025 RBC (Bld) [#/Vol] 2.93 10*6/uL Low 4.6-6.2 [facility] Serum creatinine measurement (mass/volume)Ordered By: Arnulfo Jose on 04-19-2025 Creatinine [Mass/Vol] 2.73 mg/dL High 0.70-1.20 [facility] Serum glucose measurement (m ass/volume)Ordered By: Arnulfo Jose on 04-19-2025 Glucose [Mass/Vol] 406 mg/dL High 70-99 [facility] Serum or plasma calcium nikkie urement (mass/volume)Ordered By: Arnulfo Jose on 04-19-2025 Calcium [Mass/Vol] 8.6 mg/dL 7.6-11.0 [facility] Serum or plasma urea nitroge n measurement (mass/volume)Ordered By: Arnulfo Jose on 04-19-2025 Urea nitrogen [Mass/Vol] 65 mg/dL High 4-19 [facility] Sodium levelOrdered By: Tyree Jose on 04-19-2025 Sodium [Moles/Vol] 136 mmol/L 133-145 [facility] Squamous epithelial cells de tection in urine sediment by light microscopyOrdered By: Nancy Henson on 04-19-2025 Epithelial cells.squamous LM Ql (Urine sed) 0 SEEN /hpf 0-5 [facility] TSH DL <= 0.005 mIU/L QnOrde red By: Nancy Henson on 04-19-2025 TSH Qn 1.730 uIU/mL 0.300-4.200 [facility] Thyroid Stim Hormone (TSH)on 04-19-2025 TSH 1.730 uIU/mL Normal 0.300-4.200 [facility] Comment on above: Performed By: #### L 501.9520, L503.7505, L500.4050 ####[facility] [address] [place], [address] Total carbon dioxide measure mentOrdered By: Nancy Henson on 04-19-2025 CO2 [Moles/Vol] 23 mmol/L [facility] CO2 [Moles/Vol] 23 mmol/L [facility] Troponin T.cardiac [Mass/vol ume] in Serum or Plasma by High sensitivity methodOrdered By: Nancy Henson on 04-19-2025 Troponin T.cardiac High sensitivity method [Mass/Vol] 350 ng/L High <22 [facility] Troponin T.cardiac High sensitivity method [Mass/Vol] 385 ng/L High <22 [facility] Troponin T.cardiac High sensitivity method [Mass/Vol] 394 ng/L High <22 [facility] Type AND Screenon 04-19-2025 Ab SCREEN GEL Negative Normal [facility] Comment on above: Order Comment: A Performed By: #### B TS ####[facility] [address] [place], [address] Urinalysis, Completeon 04-19 BACTERIA 0 SEEN Normal None Seen [facility] Comment on above: Order Comment: CLEAN CATCH Performed By: #### L 400.0001 ####[facility] [address] [place], [address] EPI,SQUAMOUS 0 SEEN Normal 0-5 [facility] Comment on above: Order Comment: CLEAN CATCH Performed By: #### L 400.0001 ####[facility] [address] [place], [address] Mucus Ql (Urine sed) 0 SEEN Normal [facility] Comment on above: Order Comment: CLEAN CATCH Performed By: #### L 400.0001 ####[facility] [address] [place], [address] RBC 0 SEEN Normal 0-5 [facility] Comment on above: Order Comment: CLEAN CATCH Performed By: #### L 400.0001 ####[facility] [address] [place], [address] WBC 0 SEEN Normal 0-5 [facility] Comment on above: Order Comment: CLEAN CATCH Performed By: #### L 400.0001 ####[facility] [address] [place], [address] Urine clarityOrdered By: Saravanan Henson on 04-19-2025 Clarity (U) Clear Clear [facility] Urine color determinationOrd ered By: Nancy Henson on 04-19-2025 Color (U) Yellow Yellow [facility] Urine glucose detectionOrder ed By: Nancy Henson on 04-19-2025 Glucose Ql (U) 250 mg/dl High Normal [facility] Urine leukocyte esterase det ection by dipstickOrdered By: Nancy Henson on 04-19-2025 Leukocyte esterase Test strip Ql (U) Negative Negative [facility] Urine pHOrdered By: Nancy brooks on 04-19-2025 pH (U) 6.0 [pH] 5.0 - 8.0 [facility] Urine sediment bacteria coun t by microscopy (number/high power field)Ordered By: Nancy Henson on 04-19-2025 Bacteria LM.HPF (Urine sed) [#/Area] 0 /[HPF] None Seen [facility] Urine specific gravity measu rementOrdered By: Nancy Henson on 04-19-2025 Specific gravity (U) [Rel density] 1.015 1.002-1.030 [facility] Urine urobilinogen measureme ntOrdered By: Nancy Henson on 04-19-2025 Urobilinogen Ql (U) Normal mg/dl Normal [facility] Venous Duplex US - Karin Extre mon 04-19-2025 Venous Duplex US - Karin Extrem Normal [facility] Venous duplex ultrasound rep ortOrdered By: Oracio Payan on 04-19-2025 US Vein [facility] Other Phone: White blood cell (WBC) count Ordered By: Arnulfo Jose on 04-19-2025 WBC (Bld) [#/Vol] 14.0 10*3/uL High 4.4-11.0 [facility] White blood cell countOrdere d By: Nancy Henson on 04-19-2025 White blood cell count 0 SEEN /hpf 0-5 [facility] CBC W/Diff, Automatedon 04-01 Absolute Neut Normal 2.0-7.7 [facility] Comment on above: Result Comment: Canc elled via OM: Order cancelled - Patient discharged Performed By: #### L 100.0100 ####[facility] [address] [place], [address] HCT Normal 40-54 [facility] Comment on above: Result Comment: Canc elled via OM: Order cancelled - Patient discharged Performed By: #### L 100.0100 ####[facility] [address] [place], [address] HGB Normal 13.0-16.5 [facility] Comment on above: Result Comment: Canc elled via OM: Order cancelled - Patient discharged Performed By: #### L 100.0100 ####[facility] [address] [place], [address] MCH Normal 27.0-32.0 [facility] Comment on above: Result Comment: Canc elled via OM: Order cancelled - Patient discharged Performed By: #### L 100.0100 ####[facility] [address] [place], [address] MCHC Normal 32-36 [facility] Comment on above: Result Comment: Canc elled via OM: Order cancelled - Patient discharged Performed By: #### L 100.0100 ####[facility] [address] [place], [address] MCV Normal 80-94 [facility] Comment on above: Result Comment: Canc elled via OM: Order cancelled - Patient discharged Performed By: #### L 100.0100 ####[facility] [address] [place], [address] NEUT% Normal 47-70 [facility] Comment on above: Result Comment: Canc elled via OM: Order cancelled - Patient discharged Performed By: #### L 100.0100 ####[facility] [address] [place], [address] PLT Normal 150-450 [facility] Comment on above: Result Comment: Canc elled via OM: Order cancelled - Patient discharged Performed By: #### L 100.0100 ####[facility] [address] [place], [address] RBC Normal 4.6-6.2 [facility] Comment on above: Result Comment: Canc elled via OM: Order cancelled - Patient discharged Performed By: #### L 100.0100 ####[facility] [address] [place], [address] RDW CV Normal 11.6-14.6 [facility] Comment on above: Result Comment: Canc elled via OM: Order cancelled - Patient discharged Performed By: #### L 100.0100 ####[facility] [address] [place], [address] RDW SD Normal 35.1-43.9 [facility] Comment on above: Result Comment: Canc elled via OM: Order cancelled - Patient discharged Performed By: #### L 100.0100 ####[facility] [address] [place], [address] WBC Normal 4.4-11.0 [facility] Comment on above: Result Comment: Canc elled via OM: Order cancelled - Patient discharged Performed By: #### L 100.0100 ####[facility] [address] [place], [address] Absolute lymphocyte countOrd ered By: Grace Arnold on 04-10-2025 Lymphocytes Auto (Unsp spec) [#/Vol] 1.09 10*3/uL 0.83-4.51 [facility] Absolute neutrophil countOrd ered By: Grace Arnold on 04-10-2025 Neutrophils (Bld) [#/Vol] 9.6 10*3/uL High 2.0-7.7 [facility] Anion gap in Serum or Plasma Ordered By: Grace Arnold on 04-10-2025 Anion gap [Moles/Vol] 13 mmol/L 5-15 [facility] Automated lymphocyte count a s percentage of total leukocytesOrdered By: Grace Arnold on 04-10-2025 Lymphocytes/100 WBC Auto (Unsp spec) 9.4 % Low 19-41 [facility] BUN/creatinine ratioOrdered By: Grace Arnold on 04-10-2025 Urea nitrogen/Creatinine [Mass ratio] 22.8 mg/mg High 10-20 [facility] Basic Metabolic Profile (BMP )on 04-10-2025 BUN/CRE 22.8 RATIO High 10-20 [facility] Comment on above: Performed By: #### L 500.2500 ####[facility] [address] [place], [address] Calcium [Mass/Vol] 8.5 mg/dL Normal 7.6-11.0 [facility] Comment on above: Performed By: #### L 500.2500 ####[facility] [address] [place], [address] Chloride [Moles/Vol] 101 mmol/L Normal 98-108 [facility] Comment on above: Performed By: #### L 500.2500 ####[facility] [address] [place], [address] CO2 [Moles/Vol] 22.6 mmol/L Normal 21.0-32.0 [facility] Comment on above: Performed By: #### L 500.2500 ####[facility] [address] [place], [address] Creatinine [Mass/Vol] 3.48 mg/dL High 0.70-1.20 [facility] Comment on above: Performed By: #### L 500.2500 ####[facility] [address] [place], [address] ECRCL 15.24 ml/min Low 50-250 [facility] Comment on above: Performed By: #### L 500.2500 ####[facility] [address] [place], [address] GAP 13 Normal 5-15 [facility] Comment on above: Performed By: #### L 500.2500 ####[facility] [address] [place], [address] GFR/1.73 sq M.predicted among non-blacks MDRD (S/P/Bld) [Vol rate/Area] 17 mL/min/{1.73_m2} Low >60 [facility] Comment on above: Result Comment: mL/m in/1.73m2 CKD-EPI Creatinine Equation (2020) Performed By: #### L 500.2500 ####[facility] [address] [place], [address] Glucose [Mass/Vol] 287 mg/dL High 70-99 [facility] Comment on above: Performed By: #### L 500.2500 ####[facility] [address] [place], [address] Potassium [Moles/Vol] 4.2 mmol/L Normal 3.3-5.1 [facility] Comment on above: Performed By: #### L 500.2500 ####[facility] [address] [place], [address] Sodium [Moles/Vol] 137 mmol/L Normal 133-145 [facility] Comment on above: Performed By: #### L 500.2500 ####[facility] [address] [place], [address] Urea nitrogen [Mass/Vol] 79 mg/dL High 4-19 [facility] Comment on above: Performed By: #### L 500.2500 ####[facility] [address] [place], [address] Basophil percentageOrdered B y: Grace Arnold on 04-10-2025 Basophils/100 WBC (Bld) 0.1 % 0-1 [facility] Bedside Glucoseon 04-10-2025 FINGERSTICK GLU 223 mg/dL High 74-106 [facility] Comment on above: Result Comment: ADITI ESCOBEDO OF PATIENT CARE PER NURSING PROTOCOL Performed By: #### L 501.080 ####[facility] [address] [place], [address] FINGERSTICK GLU 274 mg/dL High 74-106 [facility] Comment on above: Result Comment: ADITI ESCOBEDO OF PATIENT CARE PER NURSING PROTOCOL Performed By: #### L 501.080 ####[facility] [address] [place], [address] CBC W/Diff, Automatedon 06-1 0-2025 Absolute Lymph 1.09 X10 3/uL Normal 0.83-4.51 [facility] Comment on above: Performed By: #### L 100.0100 ####[facility] [address] [place], [address] Absolute Neut 9.6 X10 3/uL High 2.0-7.7 [facility] Comment on above: Performed By: #### L 100.0100 ####[facility] [address] [place], [address] Basophils/100 WBC (Bld) 0.1 % Normal 0-1 [facility] Comment on above: Performed By: #### L 100.0100 ####[facility] [address] [place], [address] Eosinophils/100 WBC (Bld) 0.1 % Normal 0-5 [facility] Comment on above: Performed By: #### L 100.0100 ####[facility] [address] [place], [address] Erythrocyte distribution width (RBC) [Ratio] 13.6 % Normal 11.6-14.6 [facility] Comment on above: Performed By: #### L 100.0100 ####[facility] [address] [place], [address] Hematocrit (Bld) [Volume fraction] 26.0 % Low 40-54 [facility] Comment on above: Performed By: #### L 100.0100 ####[facility] [address] [place], [address] Hemoglobin (Bld) [Mass/Vol] 8.6 g/dL Low 13.0-16.5 [facility] Comment on above: Performed By: #### L 100.0100 ####[facility] [address] [place], [address] IG% 0.800 Normal 0.0-0.9 [facility] Comment on above: Result Comment: IG% - Immature Granulocytes (promyelocytes, myelocytes andmetamyelocytes) > 1% indicates that a LEFT SHIFT is Present. Performed By: #### L 100.0100 ####[facility] [address] [place], [address] Lymphocytes/100 WBC (Bld) 9.4 % Low 19-41 [facility] Comment on above: Performed By: #### L 100.0100 ####[facility] [address] [place], [address] MCH (RBC) [Entitic mass] 30.2 pg Normal 27.0-32.0 [facility] Comment on above: Performed By: #### L 100.0100 ####[facility] [address] [place], [address] MCHC (RBC) [Mass/Vol] 33.1 g/dL Normal 32-36 [facility] Comment on above: Performed By: #### L 100.0100 ####[facility] [address] [place], [address] MCV (RBC) [Entitic vol] 91.2 fL Normal 80-94 [facility] Comment on above: Performed By: #### L 100.0100 ####[facility] [address] [place], [address] Monocytes/100 WBC (Bld) 7.0 % Normal 0-10 [facility] Comment on above: Performed By: #### L 100.0100 ####[facility] [address] [place], [address] Neutrophils/100 WBC (Bld) 82.6 % High 47-70 [facility] Comment on above: Performed By: #### L 100.0100 ####[facility] [address] [place], [address] Nucleated RBC (Bld) [#/Vol] 0 10*3/uL Normal 0-5 [facility] Comment on above: Performed By: #### L 100.0100 ####[facility] [address] [place], [address] Platelet mean volume (Bld) [Entitic vol] 12.4 fL High 6.2-12.0 [facility] Comment on above: Performed By: #### L 100.0100 ####[facility] [address] [place], [address] Platelets (Bld) [#/Vol] 193 10*3/uL Normal 150-450 [facility] Comment on above: Performed By: #### L 100.0100 ####[facility] [address] [place], [address] RBC (Bld) [#/Vol] 2.85 10*6/uL Low 4.6-6.2 [facility] Comment on above: Performed By: #### L 100.0100 ####[facility] [address] [place], [address] RDW SD 45.1 fl High 35.1-43.9 [facility] Comment on above: Performed By: #### L 100.0100 ####[facility] [address] [place], [address] WBC (Bld) [#/Vol] 11.6 10*3/uL High 4.4-11.0 [facility] Comment on above: Performed By: #### L 100.0100 ####[facility] [address] [place], [address] Carbon dioxide, total [Moles /volume] in Central venous bloodOrdered By: Grace Arnold on 04-10-2025 CO2 [Moles/Vol] 22.6 mmol/L 21.0-32.0 [facility] Chloride assayOrdered By: Na na Florentino on 04-10-2025 Chloride [Moles/Vol] 101 mmol/L 98-108 [facility] Discharge Instructionon 04-01 Discharge Instruction Normal [facility] Eosinophil percentageOrdered By: Grace Arnold on 04-10-2025 Eosinophils/100 WBC (Bld) 0.1 % 0-5 [facility] Erythrocyte distribution wid th ratioOrdered By: Grace Arnold on 04-10-2025 Erythrocyte distribution width (RBC) [Ratio] 13.6 % 11.6-14.6 [facility] Erythrocyte distribution wid th standard deviationOrdered By: Grace Arnold on 04-10-2025 Erythrocyte distribution width (RBC) [Ratio] 45.1 fl High 35.1-43.9 [facility] Glomerular filtration rate ( GFR) estimation/1.73 sq m using serum, plasma, or whole bOrdered By: Grace Arnold on 04-10-2025 GFR/1.73 sq M.predicted among non-blacks MDRD (S/P/Bld) [Vol rate/Area] 17 mL/min/{1.73_m2} Low >60 [facility] Comment on above: mL/min/1.73m2 CKD-EP I Creatinine Equation (2020) Glucose measurement at bedsi deOrdered By: Grace Arnold on 04-10-2025 Glucose [Mass/Vol] 223 mg/dL High 74-106 [facility] Comment on above: MANAGEMENT OF PATIEN T CARE PER NURSING PROTOCOL Hematocrit Auto (Bld) [Volum e fraction]Ordered By: Grace Arnold on 04-10-2025 Hematocrit (Bld) [Volume fraction] 26.0 % Low 40-54 [facility] Hemoglobin measurementOrdere d By: Grace Arnold on 04-10-2025 Hemoglobin (Bld) [Mass/Vol] 8.6 g/dL Low 13.0-16.5 [facility] Immature granulocytes/100 WB C Auto (Bld)Ordered By: Grace Arnold on 04-10-2025 Immature granulocytes/100 WBC (Bld) 0.800 % 0.0-0.9 [facility] Comment on above: IG% - Immature Granu locytes (promyelocytes, myelocytes and metamyelocytes) > 1% indicates that a LEFT SHIFT is Present. MCV (mean corpuscular volume ) determinationOrdered By: Grace Arnold on 04-10-2025 MCV (RBC) [Entitic vol] 91.2 fL 80-94 [facility] Mean corpuscular hemoglobin (MCH) determinationOrdered By: Grace Arnold on 04-10-2025 MCH (RBC) [Entitic mass] 30.2 pg 27.0-32.0 [facility] Mean corpuscular hemoglobin concentration (MCHC) determinationOrdered By: Grace Arnold on 04-10-2025 MCHC (RBC) [Mass/Vol] 33.1 g/dL 32-36 [facility] Mean platelet volume determi nationOrdered By: Grace Arnold on 04-10-2025 Platelet mean volume (Bld) [Entitic vol] 12.4 fL High 6.2-12.0 [facility] Monocyte percentageOrdered B y: Grace Arnold on 04-10-2025 Monocytes/100 WBC (Bld) 7.0 % 0-10 [facility] Neutrophil percentageOrdered By: Grace Arnold on 04-10-2025 Neutrophils/100 WBC (Bld) 82.6 % High 47-70 [facility] Nucleated red blood cell per centageOrdered By: Grace Arnold on 04-10-2025 Nucleated RBC/100 WBC (Bld) [Ratio] 0 % 0-5 [facility] Platelet countOrdered By: Kesha Arnold on 04-10-2025 Platelets (Bld) [#/Vol] 193 10*3/uL 150-450 [facility] Potassium measurement (mass/ volume)Ordered By: Grace Arnold on 04-10-2025 Potassium (Unsp spec) [Mass/Vol] 4.2 mmol/L 3.3-5.1 [facility] RBC Auto (Bld) [#/Vol]Ordere d By: Grace Florentino on 04-10-2025 RBC (Bld) [#/Vol] 2.85 10*6/uL Low 4.6-6.2 [facility] Serum creatinine measurement (mass/volume)Ordered By: Grace Arnold on 04-10-2025 Creatinine [Mass/Vol] 3.48 mg/dL High 0.70-1.20 [facility] Serum glucose measurement (m ass/volume)Ordered By: Grace Arnold on 04-10-2025 Glucose [Mass/Vol] 287 mg/dL High 70-99 [facility] Serum or plasma calcium nikkie urement (mass/volume)Ordered By: Grace Arnold on 04-10-2025 Calcium [Mass/Vol] 8.5 mg/dL 7.6-11.0 [facility] Serum or plasma urea nitroge n measurement (mass/volume)Ordered By: Grace Arnold on 04-10-2025 Urea nitrogen [Mass/Vol] 79 mg/dL High 4-19 [facility] Sodium levelOrdered By: Grace Arnold on 04-10-2025 Sodium [Moles/Vol] 137 mmol/L 133-145 [facility] White blood cell (WBC) count Ordered By: Grace Arnold on 04-10-2025 WBC (Bld) [#/Vol] 11.6 10*3/uL High 4.4-11.0 [facility] ANCAon 04-09-2025 Atypical pANCA <1:20 Normal Neg:<1:20 [facility] Comment on above: Result Comment: The atypical pANCA pattern has been observed in asignificant percentage of patients with ulcerative colitis,primary sclerosing cholangitis and autoimmune hepatitis.Performed at: - [facility] [id number] Director: Todd Anderson PhD, Phone: [phone] Performed By: #### L 9987.1200 ####[facility] [address] [place], [place], [id number] Cytoplasmic Ab <1:20 Normal Neg:<1:20 [facility] Comment on above: Performed By: #### L 3300.1200 ####[facility] [address] [place], [place], [id number] Perinuclear Ab. <1:20 Normal Neg:<1:20 [facility] Comment on above: Result Comment: The presence of positive fluorescence exhibiting P-ANCA orC-ANCA patterns alone is not specific for the diagnosis ofWegener's Granulomatosis (WG) or microscopic polyangiitis.Decisions about treatment should not be based solely onANCA IFA results. [employer] Consensusrecommends follow up testing of positive sera with both NE-3 and MPO-ANCA enzyme immunoassays. As many as 5% serumsamples are positive only by EIA. Ref. AM J Clin Vqumof3251;111:507-513. Performed By: #### L 3300.1200 ####[facility] [address] [place], [place], [address] Anti-Glomerular Basement Mem bon 04-09-2025 ANTI-GLOM BM Ab < 0.2 Normal 0.0-0.9 [facility] Comment on above: Result Comment: Perf ormed at: BN - [facility] [address] [id number] Director: Mignon Taylor MD, Phone: [phone] Performed By: #### L 2013.7062 ####[facility] [address] [place], [place], [address] Basic Metabolic Profile (BMP )on 04-09-2025 BUN/CRE 21.8 RATIO High 10-20 [facility] Comment on above: Performed By: #### L 500.2500 ####[facility] [address] [place], [address] Calcium [Mass/Vol] 8.5 mg/dL Normal 7.6-11.0 [facility] Comment on above: Performed By: #### L 500.2500 ####[facility] [address] [place], [address] Chloride [Moles/Vol] 104 mmol/L Normal 98-108 [facility] Comment on above: Performed By: #### L 500.2500 ####[facility] [address] [place], [address] CO2 [Moles/Vol] 21.6 mmol/L Normal 21.0-32.0 [facility] Comment on above: Performed By: #### L 500.2500 ####[facility] [address] [place], [address] Creatinine [Mass/Vol] 3.42 mg/dL High 0.70-1.20 [facility] Comment on above: Performed By: #### L 500.2500 ####[facility] [address] [place], [address] ECRCL 15.55 ml/min Low 50-250 [facility] Comment on above: Performed By: #### L 500.2500 ####[facility] [address] [place], [address] GAP 15 Normal 5-15 [facility] Comment on above: Performed By: #### L 500.2500 ####[facility] [address] [place], [address] GFR/1.73 sq M.predicted among non-blacks MDRD (S/P/Bld) [Vol rate/Area] 17 mL/min/{1.73_m2} Low >60 [facility] Comment on above: Result Comment: mL/m in/1.73m2 CKD-EPI Creatinine Equation (2020) Performed By: #### L 500.2500 ####[facility] [address] [place], [address] Glucose [Mass/Vol] 146 mg/dL High 70-99 [facility] Comment on above: Performed By: #### L 500.2500 ####[facility] [address] [place], [address] Potassium [Moles/Vol] 3.4 mmol/L Normal 3.3-5.1 [facility] Comment on above: Performed By: #### L 500.2500 ####[facility] [address] [place], [address] Sodium [Moles/Vol] 140 mmol/L Normal 133-145 [facility] Comment on above: Performed By: #### L 500.2500 ####[facility] [address] [place], [address] Urea nitrogen [Mass/Vol] 74 mg/dL High 4-19 [facility] Comment on above: Performed By: #### L 500.2500 ####[facility] [address] [place], [address] Bedside Glucoseon 04-09-2025 FINGERSTICK GLU 423 mg/dL High 74-106 [facility] Comment on above: Result Comment: ADITI GEMENT OF PATIENT CARE PER NURSING PROTOCOL Performed By: #### L 501.080 ####[facility] [address] [place], [address] FINGERSTICK GLU 217 mg/dL High 74-106 [facility] Comment on above: Result Comment: ADITI GEMENT OF PATIENT CARE PER NURSING PROTOCOL Performed By: #### L 501.080 ####[facility] [address] [place], [address] FINGERSTICK GLU 146 mg/dL High 74-106 [facility] Comment on above: Result Comment: ADITI GEMENT OF PATIENT CARE PER NURSING PROTOCOL Performed By: #### L 501.080 ####[facility] [address] [place], [address] FINGERSTICK GLU 141 mg/dL High 74-106 [facility] Comment on above: Result Comment: ADITI GEMENT OF PATIENT CARE PER NURSING PROTOCOL Performed By: #### L 501.080 ####[facility] [address] [place], [address] FINGERSTICK GLU 443 mg/dL High 74-106 [facility] Comment on above: Result Comment: ADITI GEMENT OF PATIENT CARE PER NURSING PROTOCOL Performed By: #### L 501.080 ####[facility] [address] [place], [address] FINGERSTICK GLU 312 mg/dL High 74-106 [facility] Comment on above: Result Comment: ADITI GEMENT OF PATIENT CARE PER NURSING PROTOCOL Performed By: #### L 501.080 ####[facility] [address] [place], [address] FINGERSTICK GLU 475 mg/dL Invalid Interpretation Code 74-106 [facility] Comment on above: Result Comment: ADITI GEMENT OF PATIENT CARE PER NURSING PROTOCOL Performed By: #### L 501.080 ####[facility] [address] [place], [address] CBC W/Diff, Automatedon 06-0 9-2024 Absolute Lymph 1.84 X10 3/uL Normal 0.83-4.51 [facility] Comment on above: Performed By: #### L 100.0100 ####[facility] [address] [place], [address] Absolute Neut 10.1 X10 3/uL High 2.0-7.7 [facility] Comment on above: Performed By: #### L 100.0100 ####[facility] [address] [place], [address] Basophils/100 WBC (Bld) 0.1 % Normal 0-1 [facility] Comment on above: Performed By: #### L 100.0100 ####[facility] [address] [place], [address] Eosinophils/100 WBC (Bld) 0.1 % Normal 0-5 [facility] Comment on above: Performed By: #### L 100.0100 ####[facility] [address] [place], [address] Erythrocyte distribution width (RBC) [Ratio] 14.0 % Normal 11.6-14.6 [facility] Comment on above: Performed By: #### L 100.0100 ####[facility] [address] [place], [address] Hematocrit (Bld) [Volume fraction] 25.5 % Low 40-54 [facility] Comment on above: Performed By: #### L 100.0100 ####[facility] [address] [place], [address] Hemoglobin (Bld) [Mass/Vol] 8.7 g/dL Low 13.0-16.5 [facility] Comment on above: Performed By: #### L 100.0100 ####[facility] [address] [place], [address] IG% 0.700 Normal 0.0-0.9 [facility] Comment on above: Result Comment: IG% - Immature Granulocytes (promyelocytes, myelocytes andmetamyelocytes) > 1% indicates that a LEFT SHIFT is Present. Performed By: #### L 100.0100 ####[facility] [address] [place], [address] Lymphocytes/100 WBC (Bld) 14.1 % Low 19-41 [facility] Comment on above: Performed By: #### L 100.0100 ####[facility] [address] [place], [address] MCH (RBC) [Entitic mass] 30.2 pg Normal 27.0-32.0 [facility] Comment on above: Performed By: #### L 100.0100 ####[facility] [address] [place], [address] MCHC (RBC) [Mass/Vol] 34.1 g/dL Normal 32-36 [facility] Comment on above: Performed By: #### L 100.0100 ####[facility] [address] [place], [address] MCV (RBC) [Entitic vol] 88.5 fL Normal 80-94 [facility] Comment on above: Performed By: #### L 100.0100 ####[facility] [address] [place], [address] Monocytes/100 WBC (Bld) 7.4 % Normal 0-10 [facility] Comment on above: Performed By: #### L 100.0100 ####[facility] [address] [place], [address] Neutrophils/100 WBC (Bld) 77.6 % High 47-70 [facility] Comment on above: Performed By: #### L 100.0100 ####[facility] [address] [place], [address] Nucleated RBC (Bld) [#/Vol] 0 10*3/uL Normal 0-5 [facility] Comment on above: Performed By: #### L 100.0100 ####[facility] [address] [place], [address] Platelet mean volume (Bld) [Entitic vol] 12.0 fL Normal 6.2-12.0 [facility] Comment on above: Performed By: #### L 100.0100 ####[facility] [address] [place], [address] Platelets (Bld) [#/Vol] 191 10*3/uL Normal 150-450 [facility] Comment on above: Performed By: #### L 100.0100 ####[facility] [address] [place], [address] RBC (Bld) [#/Vol] 2.88 10*6/uL Low 4.6-6.2 [facility] Comment on above: Performed By: #### L 100.0100 ####[facility] [address] [place], [address] RDW SD 45.6 fl High 35.1-43.9 [facility] Comment on above: Performed By: #### L 100.0100 ####[facility] [address] [place], [address] WBC (Bld) [#/Vol] 13.0 10*3/uL High 4.4-11.0 [facility] Comment on above: Performed By: #### L 100.0100 ####[facility] [address] [place], [address] Electrocardiogram reportOrde red By: Barbie Martin on 04-09-2025 EKG study [facility] Cardiovascular Services [address] [place] [address] 12 Lead EKG 04/04/252111 MR#: [id number] Acct: [id number] Name: ENOC ARMANDO Rep #:[id number] : 1945 79 From: Barbie black MD Attending Dr: Dr. Grace Arnold MD Status: ADM IN Ordering Dr: Grace Arnold MD Date: 04/04/25 Location: [facility] Sex: M C Admitted: 04/03/25 Test [...] COMPARISON REQUIRED DATA IS UNCONFIRMED Confirmed by MINERVA MARTIN MD ([id number]), field map editor BLANCO BOCANEGRA ([id number]) on04/09/2025 7:17:16 AM Referred By: Confirmed By: MINERVA MARTIN MD 04/09/25716 Date _ Barbie Martin MD CC: Dr. Ryley Jeter MD; Dr. Grace Arnold MD ~ Signed [facility] Work Phone: EKG study [facility] Cardiovascular Services [address] [place] [address] 12 Lead EKG 04/04/252111 MR#: [id number] Acct: [id number] Name: ENOC ARMANDO Rep #:[id number] : 1945 79 From: Barbie black MD Attending Dr: Dr. Grace Arnold MD Status: ADM IN Ordering Dr: Grace Arnold MD Date: 04/04/25 Location: [facility] Sex: M C Admitted: 04/03/25 Test [...] COMPARISON REQUIRED DATA IS UNCONFIRMED Confirmed by MINERVA MARTIN MD ([id number]), field map editor BLANCO BOCANEGRA ([id number]) on04/09/2025 7:17:37 AM Referred By: Confirmed By: MINERVA MARTIN MD 04/09/25716 Date _ Barbie Martin MD CC: Dr. Ryley Jeter MD; Dr. Grace Arnold MD ~ Signed [facility] Work Phone: [phone] EKG study [facility] Cardiovascular Services [address] [place] [address] 12 Lead EKG 04/04/25 2109 MR#: [id number] Acct: [id number] Name: ENOC ARMANDO Rep #:[id number] : 1945 79 From: Barbie black MD Attending Dr: Dr. Grace Arnold MD Status: ADM IN Ordering Dr: Grace Arnold MD Date: 04/04/25 Location: [facility] Sex: M C Admitted: 04/03/25 Test [...] available Confirmed by VERONICA URIBE, MINERVA ([id number]), field map editor BLANCO BOCANEGRA ([id number]) on04/09/2025 7:17:54 AM Referred By: Confirmed By: MINERVA MARTIN MD 04/09/25 0717 Date _ Barbie Martin MD CC: Dr. Ryley Jeter MD; Dr. Grace Arnold MD ~ Signed [facility] Work Phone: [phone] EKG study [facility] Cardiovascular Services [address] [place] [address] 12 Lead EKG 04/03/25 0005 MR#: [id number] Acct: [id number] Name: ARMANDOENOC E Rep #:[id number] : 1945 79 From: Barbie black MD Attending Dr: Dr. Jose Moore MD Status: ADM IN Ordering Dr: John Brandon DO Date: 04/03/25 Location: U Sex: M C Admitted: 04/03/25 Test Reason [...] Abnormal ECG Confirmed by VERONICA URIBE, MINERVA ([id number]), field map editor BLANCO BOCANEGRA ([id number]) on04/09/2025 7:03:07 AM Referred By: Confirmed By: MINERVA MARTIN MD 04/09/25702 Date _ Barbie Martin MD CC: Dr. Ryley Jeter MD; Dr. Jose Moore MD; Dr. John Brandon DO ~ Signed [facility] Work Phone: EKG study [facility] Cardiovascular Services [address] [place] [address] 12 Lead EKG 04/05/25 1204 MR#: [id number] Acct: [id number] Name: ENOC ARMANDO Rep #:[id number] : 1945 79 From: Barbie black MD Attending Dr: Dr. Jose Moore MD Status: ADM IN Ordering Dr: Grace Arnold MD Date: 04/05/25 Location: [facility] Sex: M C Admitted: 04/03/25 Test Reason [...] UNCONFIRMED Confirmed by VERONICA URIBE, MINERVA ([id number]), field map editor BLANCO BOCANEGRA ([id number]) on04/09/2025 6:57:50 AM Referred By: FLORENTINO Confirmed By: MINERVA MARTIN MD 04/09/2557 Date _ Barbie Martin MD CC: Dr. Ryley Jeter MD; Dr. Grace Arnold MD; Dr. Jose Moore MD ~ Signed [facility] Work Phone: Gram Stainon 04-09-2025 GS Acceptable Specimen? Yes (<25 Epithelial cells per/lpf) Gram Stain 2+ Yeast Like Organisms 2+ Gram positive cocci 1+ Gram positive rods Normal [facility] Comment on above: Performed By: #### M 100.2000, M100.2400 ####[facility] [address] [facility] [address] [place], [place], [address] Stool Occult Blood iFOBon STOB Positive Normal [facility] Comment on above: Performed By: #### M 100.7900 ####[facility] [address] [place], [address] Stool gastrointestinal hemog lobin detection by immunologic methodOrdered By: Jose Moore on 04-09-2025 Lower GI hemoglobin IA Ql (Stl) Positive Abnormal [facility] BRCon 04-08-2025 RC Normal Neg [facility] Comment on above: Result Comment: [id number] AP RC TRANSFUSED 04/08/25 1032 Performed By: #### B , BR ####[facility] [address] [facility] [address] [place], [address] Basic Metabolic Profile (BMP )on 04-08-2025 BUN/CRE 20.8 RATIO High 10-20 [facility] Comment on above: Performed By: #### L 500.2500 ####[facility] [address] [place], [address] Calcium [Mass/Vol] 8.5 mg/dL Normal 7.6-11.0 [facility] Comment on above: Performed By: #### L 500.2500 ####[facility] [address] [place], [address] Chloride [Moles/Vol] 100 mmol/L Normal 98-108 [facility] Comment on above: Performed By: #### L 500.2500 ####[facility] [address] [place], [address] CO2 [Moles/Vol] 20.3 mmol/L Low 21.0-32.0 [facility] Comment on above: Performed By: #### L 500.2500 ####[facility] [address] [place], [address] Creatinine [Mass/Vol] 2.97 mg/dL High 0.70-1.20 [facility] Comment on above: Performed By: #### L 500.2500 ####[facility] [address] [place], [address] ECRCL 16.83 ml/min Low 50-250 [facility] Comment on above: Performed By: #### L 500.2500 ####[facility] [address] [place], [address] GAP 16 High 5-15 [facility] Comment on above: Performed By: #### L 500.2500 ####[facility] [address] [place], [address] GFR/1.73 sq M.predicted among non-blacks MDRD (S/P/Bld) [Vol rate/Area] 20 mL/min/{1.73_m2} Low >60 [facility] Comment on above: Result Comment: mL/m in/1.73m2 CKD-EPI Creatinine Equation (2020) Performed By: #### L 500.2500 ####[facility] [address] [place], [address] Glucose [Mass/Vol] 395 mg/dL High 70-99 [facility] Comment on above: Performed By: #### L 500.2500 ####[facility] [address] [place], [address] Potassium [Moles/Vol] 4.3 mmol/L Normal 3.3-5.1 [facility] Comment on above: Performed By: #### L 500.2500 ####[facility] [address] [place], [address] Sodium [Moles/Vol] 136 mmol/L Normal 133-145 [facility] Comment on above: Performed By: #### L 500.2500 ####[facility] [address] [place], [address] Urea nitrogen [Mass/Vol] 62 mg/dL High 4-19 [facility] Comment on above: Performed By: #### L 500.2500 ####[facility] [address] [place], [address] Bedside Glucoseon 04-08-2025 FINGERSTICK GLU 415 mg/dL High 74-106 [facility] Comment on above: Result Comment: ADITI GEMENT OF PATIENT CARE PER NURSING PROTOCOL Performed By: #### L 501.080 ####[facility] [address] [place], [address] FINGERSTICK GLU 420 mg/dL High 74-106 [facility] Comment on above: Result Comment: ADITI GEMENT OF PATIENT CARE PER NURSING PROTOCOL Performed By: #### L 501.080 ####[facility] [address] [place], [address] FINGERSTICK GLU 361 mg/dL High 74-106 [facility] Comment on above: Result Comment: ADITI ESCOBEDO OF PATIENT CARE PER NURSING PROTOCOL Performed By: #### L 501.080 ####[facility] [address] [place], [address] CBC W/Diff, Automatedon 06-0 8-2025 Absolute Lymph 0.63 X10 3/uL Low 0.83-4.51 [facility] Comment on above: Performed By: #### L 100.0100 ####[facility] [address] [place], [address] Absolute Neut 7.6 X10 3/uL Normal 2.0-7.7 [facility] Comment on above: Performed By: #### L 100.0100 ####[facility] [address] [place], [address] Basophils/100 WBC (Bld) 0.0 % Normal 0-1 [facility] Comment on above: Performed By: #### L 100.0100 ####[facility] [address] [place], [address] Eosinophils/100 WBC (Bld) 0.0 % Normal 0-5 [facility] Comment on above: Performed By: #### L 100.0100 ####[facility] [address] [place], [address] Erythrocyte distribution width (RBC) [Ratio] 13.5 % Normal 11.6-14.6 [facility] Comment on above: Performed By: #### L 100.0100 ####[facility] [address] [place], [address] Hematocrit (Bld) [Volume fraction] 21.5 % Low 40-54 [facility] Comment on above: Performed By: #### L 100.0100 ####[facility] [address] [place], [address] Hemoglobin (Bld) [Mass/Vol] 6.9 g/dL Low 13.0-16.5 [facility] Comment on above: Performed By: #### L 100.0100 ####[facility] [address] [place], [address] IG% 0.500 Normal 0.0-0.9 [facility] Comment on above: Result Comment: IG% - Immature Granulocytes (promyelocytes, myelocytes andmetamyelocytes) > 1% indicates that a LEFT SHIFT is Present. Performed By: #### L 100.0100 ####[facility] [address] [place], [address] Lymphocytes/100 WBC (Bld) 7.3 % Low 19-41 [facility] Comment on above: Performed By: #### L 100.0100 ####[facility] [address] [place], [address] MCH (RBC) [Entitic mass] 29.5 pg Normal 27.0-32.0 [facility] Comment on above: Performed By: #### L 100.0100 ####[facility] [address] [place], [address] MCHC (RBC) [Mass/Vol] 32.1 g/dL Normal 32-36 [facility] Comment on above: Performed By: #### L 100.0100 ####[facility] [address] [place], [address] MCV (RBC) [Entitic vol] 91.9 fL Normal 80-94 [facility] Comment on above: Performed By: #### L 100.0100 ####[facility] [address] [place], [address] Monocytes/100 WBC (Bld) 4.2 % Normal 0-10 [facility] Comment on above: Performed By: #### L 100.0100 ####[facility] [address] [place], [address] Neutrophils/100 WBC (Bld) 88.0 % High 47-70 [facility] Comment on above: Performed By: #### L 100.0100 ####[facility] [address] [place], [address] Nucleated RBC (Bld) [#/Vol] 0 10*3/uL Normal 0-5 [facility] Comment on above: Performed By: #### L 100.0100 ####[facility] [address] [place], [address] Platelet mean volume (Bld) [Entitic vol] 12.5 fL High 6.2-12.0 [facility] Comment on above: Performed By: #### L 100.0100 ####[facility] [address] [place], [address] Platelets (Bld) [#/Vol] 176 10*3/uL Normal 150-450 [facility] Comment on above: Performed By: #### L 100.0100 ####[facility] [address] [place], [address] RBC (Bld) [#/Vol] 2.34 10*6/uL Low 4.6-6.2 [facility] Comment on above: Performed By: #### L 100.0100 ####[facility] [address] [place], [address] RDW SD 44.2 fl High 35.1-43.9 [facility] Comment on above: Performed By: #### L 100.0100 ####[facility] [address] [place], [address] WBC (Bld) [#/Vol] 8.6 10*3/uL Normal 4.4-11.0 [facility] Comment on above: Performed By: #### L 100.0100 ####[facility] [address] [place], [address] Culture, Blood (WB)on 2024 CUB No growth in 5 days. Normal [facility] Comment on above: Performed By: #### L 503.6005, M200.1000 ####[facility] [address] [place], [address] Glucoseon 04-08-2025 Glucose [Mass/Vol] 528 mg/dL Invalid Interpretation Code 70-99 [facility] Comment on above: Result Comment: Crit ical Result(s) Called at 2220: by:??NBURNS TO EAFFOLTERResults read back by same. Performed By: #### L 501.0100 ####[facility] [address] [place], [address] Respiratory Cultureon 2024 RESPC Mixed normal respiratory kyler. No Streptococcus pneumoniae, beta-hemolytic Streptococcus or Staphylococcus aureus isolated. [facility] Comment on above: Performed By: #### M 100.2000, M100.2400 ####[facility] [address] [place], [address] Type AND Screenon 04-08-2025 ABO and Rh group Nom (Bld) Blood group A Rh(D) positive Normal [facility] Comment on above: Order Comment: CMV N EG? NNumber of units to transfuse: 1Reason for Ordering Blood: AcuteAre the blood/blood products to be transfused? YIs the patient having/had surgery? Nany Hazel Performed By: #### B TS, BRC ####[facility] [address] [place], [address] Ab SCREEN GEL Negative [facility] Comment on above: Order Comment: CMV N EG? NNumber of units to transfuse: 1Reason for Ordering Blood: AcuteAre the blood/blood products to be transfused? YIs the patient having/had surgery? Nany Hazel Performed By: #### B ADILIA GLORIA ####[facility] [address] [place], [address] Basic Metabolic Profile (BMP )on 04-07-2025 BUN/CRE 22.1 RATIO High 10-20 [facility] Comment on above: Performed By: #### L 500.2500 ####[facility] [address] [place], [address] Calcium [Mass/Vol] 8.2 mg/dL Normal 7.6-11.0 [facility] Comment on above: Performed By: #### L 500.2500 ####[facility] [address] [place], [address] Chloride [Moles/Vol] 99 mmol/L Normal 98-108 [facility] Comment on above: Performed By: #### L 500.2500 ####[facility] [address] [place], [address] CO2 [Moles/Vol] 21.3 mmol/L Normal 21.0-32.0 [facility] Comment on above: Performed By: #### L 500.2500 ####[facility] [address] [place], [address] Creatinine [Mass/Vol] 3.61 mg/dL High 0.70-1.20 [facility] Comment on above: Performed By: #### L 500.2500 ####[facility] [address] [place], [address] ECRCL 14.50 ml/min Low 50-250 [facility] Comment on above: Performed By: #### L 500.2500 ####[facility] [address] [place], [address] GAP 16 High 5-15 [facility] Comment on above: Performed By: #### L 500.2500 ####[facility] [address] [place], [address] GFR/1.73 sq M.predicted among non-blacks MDRD (S/P/Bld) [Vol rate/Area] 16 mL/min/{1.73_m2} Low >60 [facility] Comment on above: Result Comment: mL/m in/1.73m2 CKD-EPI Creatinine Equation (2020) Performed By: #### L 500.2500 ####[facility] [address] [place], [address] Glucose [Mass/Vol] 423 mg/dL High 70-99 [facility] Comment on above: Performed By: #### L 500.2500 ####[facility] [address] [place], [address] Potassium [Moles/Vol] 4.3 mmol/L Normal 3.3-5.1 [facility] Comment on above: Performed By: #### L 500.2500 ####[facility] [address] [place], [address] Sodium [Moles/Vol] 137 mmol/L Normal 133-145 [facility] Comment on above: Performed By: #### L 500.2500 ####[facility] [address] [place], [address] Urea nitrogen [Mass/Vol] 80 mg/dL High 4-19 [facility] Comment on above: Performed By: #### L 500.2500 ####[facility] [address] [place], [address] Bedside Glucoseon 04-07-2025 FINGERSTICK GLU 402 mg/dL High 74-106 [facility] Comment on above: Result Comment: ADITI ESCOBEDO OF PATIENT CARE PER NURSING PROTOCOL Performed By: #### L 501.080 ####[facility] [address] [place], [address] FINGERSTICK GLU 330 mg/dL High 74-106 [facility] Comment on above: Result Comment: ADITI GEMENT OF PATIENT CARE PER NURSING PROTOCOL Performed By: #### L 501.080 ####[facility] [address] [place], [address] FINGERSTICK GLU 333 mg/dL High 74-106 [facility] Comment on above: Result Comment: ADITI GEMENT OF PATIENT CARE PER NURSING PROTOCOL Performed By: #### L 501.080 ####[facility] [address] [place], [address] FINGERSTICK GLU 392 mg/dL High -106 [facility] Comment on above: Result Comment: ADITI GEMENT OF PATIENT CARE PER NURSING PROTOCOL Performed By: #### L 501.080 ####[facility] [address] [place], [address] FINGERSTICK GLU 280 mg/dL High 74-106 [facility] Comment on above: Result Comment: ADITI GEMENT OF PATIENT CARE PER NURSING PROTOCOL Performed By: #### L 501.080 ####[facility] [address] [place], [address] CBC W/Diff, Automatedon 06-0 7-2024 Absolute Lymph 1.30 X10 3/uL Normal 0.83-4.51 [facility] Comment on above: Performed By: #### L 100.0100 ####[facility] [address] [place], [address] Absolute Neut 8.2 X10 3/uL High 2.0-7.7 [facility] Comment on above: Performed By: #### L 100.0100 ####[facility] [address] [place], [address] Basophils/100 WBC (Bld) 0.0 % Normal 0-1 [facility] Comment on above: Performed By: #### L 100.0100 ####[facility] [address] [place], [address] Eosinophils/100 WBC (Bld) 0.1 % Normal 0-5 [facility] Comment on above: Performed By: #### L 100.0100 ####[facility] [address] [place], [address] Erythrocyte distribution width (RBC) [Ratio] 13.7 % Normal 11.6-14.6 [facility] Comment on above: Performed By: #### L 100.0100 ####[facility] [address] [place], [address] Hematocrit (Bld) [Volume fraction] 23.1 % Low 40-54 [facility] Comment on above: Performed By: #### L 100.0100 ####[facility] [address] [place], [address] Hemoglobin (Bld) [Mass/Vol] 7.7 g/dL Low 13.0-16.5 [facility] Comment on above: Performed By: #### L 100.0100 ####[facility] [address] [place], [address] IG% 0.300 Normal 0.0-0.9 [facility] Comment on above: Result Comment: IG% - Immature Granulocytes (promyelocytes, myelocytes andmetamyelocytes) > 1% indicates that a LEFT SHIFT is Present. Performed By: #### L 100.0100 ####[facility] [address] [place], [address] Lymphocytes/100 WBC (Bld) 12.6 % Low 19-41 [facility] Comment on above: Performed By: #### L 100.0100 ####[facility] [address] [place], [address] MCH (RBC) [Entitic mass] 30.8 pg Normal 27.0-32.0 [facility] Comment on above: Performed By: #### L 100.0100 ####[facility] [address] [place], [address] MCHC (RBC) [Mass/Vol] 33.3 g/dL Normal 32-36 [facility] Comment on above: Performed By: #### L 100.0100 ####[facility] [address] [place], [address] MCV (RBC) [Entitic vol] 92.4 fL Normal 80-94 [facility] Comment on above: Performed By: #### L 100.0100 ####[facility] [address] [place], [address] Monocytes/100 WBC (Bld) 8.0 % Normal 0-10 [facility] Comment on above: Performed By: #### L 100.0100 ####[facility] [address] [place], [address] Neutrophils/100 WBC (Bld) 79.0 % High 47-70 [facility] Comment on above: Performed By: #### L 100.0100 ####[facility] [address] [place], [address] Nucleated RBC (Bld) [#/Vol] 0 10*3/uL Normal 0-5 [facility] Comment on above: Performed By: #### L 100.0100 ####[facility] [address] [place], [address] Platelet mean volume (Bld) [Entitic vol] 12.3 fL High 6.2-12.0 [facility] Comment on above: Performed By: #### L 100.0100 ####[facility] [address] [place], [address] Platelets (Bld) [#/Vol] 191 10*3/uL Normal 150-450 [facility] Comment on above: Performed By: #### L 100.0100 ####[facility] [address] [place], [address] RBC (Bld) [#/Vol] 2.50 10*6/uL Low 4.6-6.2 [facility] Comment on above: Performed By: #### L 100.0100 ####[facility] [address] [place], [address] RDW SD 46.1 fl High 35.1-43.9 [facility] Comment on above: Performed By: #### L 100.0100 ####[facility] [address] [place], [address] WBC (Bld) [#/Vol] 10.4 10*3/uL Normal 4.4-11.0 [facility] Comment on above: Performed By: #### L 100.0100 ####[facility] [address] [place], [address] Ferritinon 04-07-2025 Ferritin [Mass/Vol] 69 ng/mL Normal 37-417 [facility] Comment on above: Performed By: #### L 503.6030, L503.6550 ####[facility] [address] [place], [address] Gram stainOrdered By: Dyana White on 04-07-2025 Microscopic observation Gram stain Nom (Unsp spec) [facility] Iron measurement (mass/mass) Ordered By: Jose Moore on 04-07-2025 Iron (Unsp spec) [Mass/Mass] 27 ug/dL Low 65-175 [facility] Iron+Iron Binding Capacityon 04-07-2025 Iron [Mass/Vol] 27 ug/dL Low 65-175 [facility] Comment on above: Performed By: #### L 503.6030, L503.6550 ####[facility] [address] [place], [address] IRON SATURATION 10.0 Normal 9- [facility] Comment on above: Performed By: #### L 503.6030, L503.6550 ####[facility] [address] [place], [address] TIBC 270 ug/dL Normal 250-450 [facility] Comment on above: Performed By: #### L 503.6030, L503.6550 ####[facility] [address], [address] UIBC 243 ug/dL Normal 228-428 [facility] Comment on above: Performed By: #### L 503.6030, L503.6550 ####[facility] [address], [address] Microbial respiratory cultur eOrdered By: Dyana Hwang on 04-07-2025 Microorganism identified Cx Nom (Unsp spec) or Staphylococcus aureus isolated. [facility] No Panel InformationOrdered By: Jose Moore on 04-07-2025 Unsaturated Iron Binding Capacity 243 ug/dL 228-428 [facility] 243 ug/dL 228-428 [facility] Serum or plasma ferritin heriberto surement (mass/volume)Ordered By: Jose Moore on 04-07-2025 Ferritin [Mass/Vol] 69 ng/mL 37-417 [facility] Serum or plasma iron saturat ion measurement (mass fraction)Ordered By: Jose Moore on 04-07-2025 Iron saturation [Mass fraction] 10.0 % 9- [facility] Basic Metabolic Profile (BMP )on 04-06-2025 BUN/CRE 21.8 RATIO High 10-20 [facility] Comment on above: Performed By: #### L 500.2500 ####[facility] [address], [address] Calcium [Mass/Vol] 8.3 mg/dL Normal 7.6-11.0 [facility] Comment on above: Performed By: #### L 500.2500 ####[facility] [address] [place], [address] Chloride [Moles/Vol] 100 mmol/L Normal 98-108 [facility] Comment on above: Performed By: #### L 500.2500 ####[facility] [address] [place], [address] CO2 [Moles/Vol] 21.0 mmol/L Normal 21.0-32.0 [facility] Comment on above: Performed By: #### L 500.2500 ####[facility] [address] [place], [address] Creatinine [Mass/Vol] 4.73 mg/dL High 0.70-1.20 [facility] Comment on above: Performed By: #### L 500.2500 ####[facility] [address] [place], [address] ECRCL 11.24 ml/min Low 50-250 [facility] Comment on above: Performed By: #### L 500.2500 ####[facility] [address] [place], [address] GAP 18 High 5-15 [facility] Comment on above: Performed By: #### L 500.2500 ####[facility] [address] [place], [address] GFR/1.73 sq M.predicted among non-blacks MDRD (S/P/Bld) [Vol rate/Area] 12 mL/min/{1.73_m2} Low >60 [facility] Comment on above: Result Comment: mL/m in/1.73m2 CKD-EPI Creatinine Equation (2020) Performed By: #### L 500.2500 ####[facility] [address] [place], [address] Glucose [Mass/Vol] 233 mg/dL High 70-99 [facility] Comment on above: Performed By: #### L 500.2500 ####[facility] [address] [place], [address] Potassium [Moles/Vol] 4.2 mmol/L Normal 3.3-5.1 [facility] Comment on above: Performed By: #### L 500.2500 ####[facility] [address] [place], [address] Sodium [Moles/Vol] 139 mmol/L Normal 133-145 [facility] Comment on above: Performed By: #### L 500.2500 ####[facility] [address] [place], [address] Urea nitrogen [Mass/Vol] 103 mg/dL Invalid Interpretation Code 4-19 [facility] Comment on above: Result Comment: Crit ical Result(s) Called at: by: 04/06/2025-09:27 Neal to Andressa Khanna.??Results read back by same. Performed By: #### L 500.2500 ####[facility] [address] [place], [address] Bedside Glucoseon 04-06-2025 FINGERSTICK GLU 269 mg/dL High 74-106 [facility] Comment on above: Result Comment: ADITI GEMENT OF PATIENT CARE PER NURSING PROTOCOL Performed By: #### L 501.080 ####[facility] [address] [place], [address] FINGERSTICK GLU 225 mg/dL High 74-106 [facility] Comment on above: Result Comment: ADITI GEMENT OF PATIENT CARE PER NURSING PROTOCOL Performed By: #### L 501.080 ####[facility] [address] [place], [address] FINGERSTICK GLU 281 mg/dL High 74-106 [facility] Comment on above: Result Comment: ADITI GEMENT OF PATIENT CARE PER NURSING PROTOCOL Performed By: #### L 501.080 ####[facility] [address] [place], [address] CBC W/Diff, Automatedon 06-0 6-2024 Absolute Lymph 1.34 X10 3/uL Normal 0.83-4.51 [facility] Comment on above: Performed By: #### L 100.0100 ####[facility] [address] [place], [address] Absolute Neut 12.3 X10 3/uL High 2.0-7.7 [facility] Comment on above: Performed By: #### L 100.0100 ####[facility] [address] [place], [address] Basophils/100 WBC (Bld) 0.1 % Normal 0-1 [facility] Comment on above: Performed By: #### L 100.0100 ####[facility] [address] [place], [address] Eosinophils/100 WBC (Bld) 0.0 % Normal 0-5 [facility] Comment on above: Performed By: #### L 100.0100 ####[facility] [address] [place], [address] Erythrocyte distribution width (RBC) [Ratio] 13.8 % Normal 11.6-14.6 [facility] Comment on above: Performed By: #### L 100.0100 ####[facility] [address] [place], [address] Hematocrit (Bld) [Volume fraction] 23.6 % Low 40-54 [facility] Comment on above: Performed By: #### L 100.0100 ####[facility] [address] [place], [address] Hemoglobin (Bld) [Mass/Vol] 7.9 g/dL Low 13.0-16.5 [facility] Comment on above: Performed By: #### L 100.0100 ####[facility] [address] [place], [address] IG% 0.500 Normal 0.0-0.9 [facility] Comment on above: Result Comment: IG% - Immature Granulocytes (promyelocytes, myelocytes andmetamyelocytes) > 1% indicates that a LEFT SHIFT is Present. Performed By: #### L 100.0100 ####[facility] [address] [place], [address] Lymphocytes/100 WBC (Bld) 9.1 % Low 19-41 [facility] Comment on above: Performed By: #### L 100.0100 ####[facility] [address] [place], [address] MCH (RBC) [Entitic mass] 30.7 pg Normal 27.0-32.0 [facility] Comment on above: Performed By: #### L 100.0100 ####[facility] [address] [place], [address] MCHC (RBC) [Mass/Vol] 33.5 g/dL Normal 32-36 [facility] Comment on above: Performed By: #### L 100.0100 ####[facility] [address] [place], [address] MCV (RBC) [Entitic vol] 91.8 fL Normal 80-94 [facility] Comment on above: Performed By: #### L 100.0100 ####[facility] [address] [place], [address] Monocytes/100 WBC (Bld) 7.0 % Normal 0-10 [facility] Comment on above: Performed By: #### L 100.0100 ####[facility] [address] [place], [address] Neutrophils/100 WBC (Bld) 83.3 % High 47-70 [facility] Comment on above: Performed By: #### L 100.0100 ####[facility] [address] [place], [address] Nucleated RBC (Bld) [#/Vol] 0 10*3/uL Normal 0-5 [facility] Comment on above: Performed By: #### L 100.0100 ####[facility] [address] [place], [address] Platelet mean volume (Bld) [Entitic vol] 11.9 fL Normal 6.2-12.0 [facility] Comment on above: Performed By: #### L 100.0100 ####[facility] [address] [place], [address] Platelets (Bld) [#/Vol] 222 10*3/uL Normal 150-450 [facility] Comment on above: Performed By: #### L 100.0100 ####[facility] [address] [place], [address] RBC (Bld) [#/Vol] 2.57 10*6/uL Low 4.6-6.2 [facility] Comment on above: Performed By: #### L 100.0100 ####[facility] [address] [place], [address] RDW SD 46.2 fl High 35.1-43.9 [facility] Comment on above: Performed By: #### L 100.0100 ####[facility] [address] [place], [address] WBC (Bld) [#/Vol] 14.8 10*3/uL High 4.4-11.0 [facility] Comment on above: Performed By: #### L 100.0100 ####[facility] [address] [place], [address] Magnesiumon 04-06-2025 Magnesium [Mass/Vol] 2.8 mg/dL High 1.5-2.2 [facility] Comment on above: Performed By: #### L 501.5200, L501.2300 ####[facility] [address] [place], [place], [address] Magnesium measurement (mass/ volume)Ordered By: Barbie Martin on 04-06-2025 Magnesium (Unsp spec) [Mass/Vol] 2.8 mg/dL High 1.5-2.2 [facility] Phosphoruson 04-06-2025 Phosphate [Mass/Vol] 7.1 mg/dL High 2.7-4.5 [facility] Comment on above: Performed By: #### L 501.5200, L501.2300 ####[facility] [address] [place], [place], [address] Serum classic neutrophil cyt oplasmic antibody assay (units/volume)Ordered By: Denisha Thompson on 04-06-2025 Neutrophil cytoplasmic Ab.classic Qn (S) <1:20 titer Neg:<1:20 [facility] Serum glomerular basement me mbrane antibody assay (units/volume)Ordered By: Denisha Thomposn on 04-06-2025 Glomerular basement membrane Ab Qn (S) < 0.2 units 0.0-0.9 [facility] Comment on above: Performed at: [address] [id number] Director: Mignon Taylor MD, Phone: [phone] Serum perinuclear neutrophil cytoplasmic antibody titer by immunofluorescenceOrdered By: Denisha Thompson on 04-06-2025 Neutrophil cytoplasmic Ab.perinuclear IF (S) [Titer] <1:20 titer Neg:<1:20 [facility] Comment on above: The presence of posi tive fluorescence exhibiting P-ANCA orC-ANCA patterns alone is not specific for the diagnosis ofWegener's Granulomatosis (WG) or microscopic polyangiitis.Decisions about treatment should not be based solely onANCA IFA results. The [employer] Consensusrecommends follow up testing of positive sera with both NE-3 and MPO-ANCA enzyme immunoassays. As many as 5% serumsamples are positive only by EIA. Ref. AM J Clin Jfuroe3980;111:507-513. 12 Lead EKGon 04-05-2025 12 Lead EKG Normal [facility] Basic Metabolic Profile (BMP )on 04-05-2025 BUN/CRE 20.8 RATIO High 10-20 [facility] Comment on above: Performed By: #### L 500.2500 ####[facility] [address] [place], [address] Calcium [Mass/Vol] 8.9 mg/dL Normal 7.6-11.0 [facility] Comment on above: Performed By: #### L 500.2500 ####[facility] [address] [place], [address] Chloride [Moles/Vol] 102 mmol/L Normal 98-108 [facility] Comment on above: Performed By: #### L 500.2500 ####[facility] [address] [place], [address] CO2 [Moles/Vol] 15.6 mmol/L Low 21.0-32.0 [facility] Comment on above: Performed By: #### L 500.2500 ####[facility] [address] [place], [address] Creatinine [Mass/Vol] 4.77 mg/dL High 0.70-1.20 [facility] Comment on above: Performed By: #### L 500.2500 ####[facility] [address] [place], [address] ECRCL 10.67 ml/min Low 50-250 [facility] Comment on above: Performed By: #### L 500.2500 ####[facility] [address] [place], [address] GAP 19 High 5-15 [facility] Comment on above: Performed By: #### L 500.2500 ####[facility] [address] [place], [address] GFR/1.73 sq M.predicted among non-blacks MDRD (S/P/Bld) [Vol rate/Area] 12 mL/min/{1.73_m2} Low >60 [facility] Comment on above: Result Comment: mL/m in/1.73m2 CKD-EPI Creatinine Equation (2020) Performed By: #### L 500.2500 ####[facility] [address] [place], [address] Glucose [Mass/Vol] 205 mg/dL High 70-99 [facility] Comment on above: Performed By: #### L 500.2500 ####[facility] [address] [place], [address] Potassium [Moles/Vol] 5.7 mmol/L High 3.3-5.1 [facility] Comment on above: Result Comment: Hemo lysis present, Results??could be affected.?? Performed By: #### L 500.2500 ####[facility] [address] [place], [address] Sodium [Moles/Vol] 137 mmol/L Normal 133-145 [facility] Comment on above: Performed By: #### L 500.2500 ####[facility] [address] [place], [address] Urea nitrogen [Mass/Vol] 99 mg/dL High 4-19 [facility] Comment on above: Performed By: #### L 500.2500 ####[facility] [address] [place], [address] BUN/CRE 20.5 RATIO High 10-20 [facility] Comment on above: Performed By: #### L 500.2500 ####[facility] [address] [place], [address] Calcium [Mass/Vol] 8.1 mg/dL Normal 7.6-11.0 [facility] Comment on above: Performed By: #### L 500.2500 ####[facility] [address] [place], [address] Chloride [Moles/Vol] 102 mmol/L Normal 98-108 [facility] Comment on above: Performed By: #### L 500.2500 ####[facility] [address] [place], [address] CO2 [Moles/Vol] 15.8 mmol/L Low 21.0-32.0 [facility] Comment on above: Performed By: #### L 500.2500 ####[facility] [address] [place], [address] Creatinine [Mass/Vol] 4.68 mg/dL High 0.70-1.20 [facility] Comment on above: Performed By: #### L 500.2500 ####[facility] [address] [place], [address] ECRCL 10.87 ml/min Low 50-250 [facility] Comment on above: Performed By: #### L 500.2500 ####[facility] [address] [place], [address] GAP 18 High 5-15 [facility] Comment on above: Performed By: #### L 500.2500 ####[facility] [address] [place], [address] GFR/1.73 sq M.predicted among non-blacks MDRD (S/P/Bld) [Vol rate/Area] 12 mL/min/{1.73_m2} Low >60 [facility] Comment on above: Result Comment: mL/m in/1.73m2 CKD-EPI Creatinine Equation (2020) Performed By: #### L 500.2500 ####[facility] [address] [place], [address] Glucose [Mass/Vol] 223 mg/dL High 70-99 [facility] Comment on above: Performed By: #### L 500.2500 ####[facility] [address] [place], [address] Potassium [Moles/Vol] 6.3 mmol/L Invalid Interpretation Code 3.3-5.1 [facility] Comment on above: Result Comment: Crit ical Result(s) Called to: STANTON PARRA ([facility]) by:RONEN??Results read back by same. Performed By: #### L 500.2500 ####[facility] [address] [place], [address] Sodium [Moles/Vol] 136 mmol/L Normal 133-145 [facility] Comment on above: Performed By: #### L 500.2500 ####[facility] [address] [place], [address] Urea nitrogen [Mass/Vol] 96 mg/dL High 4-19 [facility] Comment on above: Performed By: #### L 500.2500 ####[facility] [address] [place], [address] Bedside Glucoseon 04-05-2024 FINGERSTICK GLU 282 mg/dL High 74-106 [facility] Comment on above: Result Comment: ADITI GEMENT OF PATIENT CARE PER NURSING PROTOCOL Performed By: #### L 501.080 ####[facility] [address] [place], [address] FINGERSTICK GLU 165 mg/dL High 74-106 [facility] Comment on above: Result Comment: ADITI GEMENT OF PATIENT CARE PER NURSING PROTOCOL Performed By: #### L 501.080 ####[facility] [address] [place], [address] FINGERSTICK GLU 239 mg/dL High 74-106 [facility] Comment on above: Result Comment: ADITI GEMENT OF PATIENT CARE PER NURSING PROTOCOL Performed By: #### L 501.080 ####[facility] [address] [place], [address] FINGERSTICK GLU 226 mg/dL High 74-106 [facility] Comment on above: Result Comment: ADITI GEMENT OF PATIENT CARE PER NURSING PROTOCOL Performed By: #### L 501.080 ####[facility] [address] [place], [address] FINGERSTICK GLU 263 mg/dL High 74-106 [facility] Comment on above: Result Comment: ADITI GEMENT OF PATIENT CARE PER NURSING PROTOCOL Performed By: #### L 501.080 ####[facility] [address] [place], [address] FINGERSTICK GLU 253 mg/dL High 74-106 [facility] Comment on above: Result Comment: ADITI GEMENT OF PATIENT CARE PER NURSING PROTOCOL Performed By: #### L 501.080 ####[facility] [address] [place], [address] Bilirubin Test strip Ql (U)O rdered By: Denisha Thompson on 04-05-2025 Bilirubin Ql (U) 1 mg/dL High Negative [facility] Comment on above: COLOR OF URINE MAY A FFECT DIPSTICK RESULTS. Blood manual differential co mment interpretation (narrative result)Ordered By: Grace Arnold on 04-05-2025 Manual differential comment Mumtaz (Bld) [Interp] SCANNED [facility] CBC W/Diff, Automatedon SMEAR COMMENT SCANNED Normal [facility] Comment on above: Performed By: #### L 100.0100 ####[facility] [address] [place], [address] CXR for Line Placementon CXR for Line Placement Normal [facility] Consultation - Surgicalon Consultation - Surgical Normal [facility] Ketones Test strip Ql (U)Ord ered By: Denisha Thompson on 04-05-2025 Ketones Ql (U) Negative Negative [facility] L499.0042on 04-05-2025 Trop T High Sen 2263 ng/L Invalid Interpretation Code <=22 [facility] Comment on above: Result Comment: Crit ical Result(s) Called at: 0040 by: BJ??Results read back by same. Performed By: #### L 499.0042 ####[facility] [address] [place], [place], [address] L499.0043on 04-05-2025 Trop T High Sen 2425 ng/L Invalid Interpretation Code <=22 [facility] Comment on above: Result Comment: Crit ical Result(s) Called at: 0336 by:??DASIA ALICIA Results read back by same. Performed By: #### L 499.0043 ####[facility] [address] [place], [place], [id number] Microscopic analysis of urin e for red blood cells (RBC)Ordered By: Denisha Thompson on 04-05-2025 Microscopic analysis of urine for red blood cells (RBC) > 100 SEEN /hpf 0-5 [facility] Mucus LM Ql (Urine sed)Order ed By: Denisha Thompson on 04-05-2025 Mucus Ql (Urine sed) 0 SEEN /hpf [facility] Nitrite Test strip Ql (U)Ord ered By: Denisha Thompson on 04-05-2025 Nitrite Ql (U) Negative Negative [facility] Operative Reporton Operative Report Normal [facility] Protein Test strip Ql (U)Ord ered By: Denisha Thompson on 04-05-2025 Protein Ql (U) 100 mg/dl High Negative [facility] Squamous epithelial cells de tection in urine sediment by light microscopyOrdered By: Denisha Thompson on 04-05-2025 Epithelial cells.squamous LM Ql (Urine sed) 0 SEEN /hpf 0-5 [facility] Troponin T.cardiac [Mass/vol ume] in Serum or Plasma by High sensitivity methodOrdered By: Breezy Campbell on 04-05-2025 Troponin T.cardiac High sensitivity method [Mass/Vol] 2425 ng/L High <22 [facility] Comment on above: Critical Result(s) C alled at: 0336 by: DASIA MOYA TO ANA ALICIA Results read back by same. Urinalysis, Completeon 04-05 WBC 5-10 SEEN Normal 0-5 [facility] Comment on above: Order Comment: HATTIE TER SPECIMEN Performed By: #### L 400.0001 ####[facility] [address] [place], [address] RBC > 100 SEEN Normal 0-5 [facility] Comment on above: Order Comment: HATTIE TER SPECIMEN Performed By: #### L 400.0001 ####[facility] [address] [place], [address] BACTERIA 0 SEEN Normal None Seen [facility] Comment on above: Order Comment: HATTIE TER SPECIMEN Performed By: #### L 400.0001 ####[facility] [address] [place], [address] EPI,SQUAMOUS 0 SEEN Normal 0-5 [facility] Comment on above: Order Comment: HATTIE TER SPECIMEN Performed By: #### L 400.0001 ####[facility] [address] [place], [address] Mucus Ql (Urine sed) 0 SEEN Normal [facility] Comment on above: Order Comment: HATTIE TER SPECIMEN Performed By: #### L 400.0001 ####[facility] [address] [place], [address] Urine clarityOrdered By: Zelalem Thompson on 04-05-2025 Clarity (U) Sl. Cloudy Clear [facility] Urine color determinationOrd ered By: Denisha Thompson on 04-05-2025 Color (U) Yellow Yellow [facility] Urine glucose detectionOrder ed By: Denisha Thompson on 04-05-2025 Glucose Ql (U) Normal mg/dl Normal [facility] Urine leukocyte esterase det ection by dipstickOrdered By: Denisha Thompson on 04-05-2025 Leukocyte esterase Test strip Ql (U) 500 /ul High Negative [facility] Urine pHOrdered By: Almita Thompson on 04-05-2025 pH (U) 5.0 [pH] 5.0 - 8.0 [facility] Urine sediment bacteria coun t by microscopy (number/high power field)Ordered By: Denisha Thompson on 04-05-2025 Bacteria LM.HPF (Urine sed) [#/Area] 0 /[HPF] None Seen [facility] Urine specific gravity measu rementOrdered By: Denisha Thompson on 04-05-2025 Specific gravity (U) [Rel density] 1.020 1.002-1.030 [facility] Urine urobilinogen measureme ntOrdered By: Denisha Thompson on 04-05-2025 Urobilinogen Ql (U) Normal mg/dl Normal [facility] White blood cell countOrdere d By: Denisha Thompson on 04-05-2025 White blood cell count 5-10 SEEN /hpf 0-5 [facility] 12 Lead EKGon 04-04-2025 12 Lead EKG Normal [facility] 12 Lead EKG Normal [facility] 12 Lead EKG Normal [facility] Basic Metabolic Profile (BMP )on 04-04-2025 BUN Normal 4-19 [facility] Comment on above: Result Comment: CANC EL PER DEVEROAUX Performed By: #### L 500.2500 ####[facility] [address] [facility] [id number] BUN/CRE Normal 10-20 [facility] Comment on above: Result Comment: CANC EL PER DEVEROAUX Performed By: #### L 500.2500 ####[facility] [address] [place], [place], [id number] Calcium Normal 7.6-11.0 [facility] Comment on above: Result Comment: CANC EL PER DEVEROAUX Performed By: #### L 500.2500 ####[facility] [address] [place], [address] CL Normal 98-108 [facility] Comment on above: Result Comment: CANC EL PER DEVEROAUX Performed By: #### L 500.2500 ####[facility] [address] [place], [address] CO2 Normal 21.0-32.0 [facility] Comment on above: Result Comment: CANC EL PER DEVEROAUX Performed By: #### L 500.2500 ####[facility] [address] [place], [address] CREAT,SERUM Normal 0.70-1.20 [facility] Comment on above: Result Comment: CANC EL PER DEVEROAUX Performed By: #### L 500.2500 ####[facility] [address] [place], [address] eGFR Normal >60 [facility] Comment on above: Result Comment: CANC EL PER DEVEROAUX Performed By: #### L 500.2500 ####[facility] [address] [place], [address] GAP Normal 5-15 [facility] Comment on above: Result Comment: CANC EL PER DEVEROAUX Performed By: #### L 500.2500 ####[facility] [address] [place], [address] GLU Normal 70-99 [facility] Comment on above: Result Comment: CANC EL PER DEVEROAUX Performed By: #### L 500.2500 ####[facility] [address] [place], [address] Potassium Normal 3.3-5.1 [facility] Comment on above: Result Comment: CANC EL PER DEVEROAUX Performed By: #### L 500.2500 ####[facility] [address] [place], [address] Basic Metabolic Profile (BMP) Normal 133-145 [facility] Comment on above: Result Comment: CANC EL DELGADO MAKI Performed By: #### L 500.2500 ####[facility] [address] [place], [address] BUN/CRE 20.5 RATIO High 10-20 [facility] Comment on above: Performed By: #### L 500.2500 ####[facility] [address] [place], [address] Calcium [Mass/Vol] 8.6 mg/dL Normal 7.6-11.0 [facility] Comment on above: Performed By: #### L 500.2500 ####[facility] [address] [place], [address] Chloride [Moles/Vol] 101 mmol/L Normal 98-108 [facility] Comment on above: Performed By: #### L 500.2500 ####[facility] [address] [place], [address] CO2 [Moles/Vol] 17.2 mmol/L Low 21.0-32.0 [facility] Comment on above: Performed By: #### L 500.2500 ####[facility] [address] [place], [address] Creatinine [Mass/Vol] 3.74 mg/dL High 0.70-1.20 [facility] Comment on above: Performed By: #### L 500.2500 ####[facility] [address] [place], [address] ECRCL 13.61 ml/min Low 50-250 [facility] Comment on above: Performed By: #### L 500.2500 ####[facility] [address] [place], [address] GAP 17 High 5-15 [facility] Comment on above: Performed By: #### L 500.2500 ####[facility] [address] [place], [address] GFR/1.73 sq M.predicted among non-blacks MDRD (S/P/Bld) [Vol rate/Area] 16 mL/min/{1.73_m2} Low >60 [facility] Comment on above: Result Comment: mL/m in/1.73m2 CKD-EPI Creatinine Equation (2020) Performed By: #### L 500.2500 ####[facility] [address] [place], [address] Glucose [Mass/Vol] 226 mg/dL High 70-99 [facility] Comment on above: Performed By: #### L 500.2500 ####[facility] [address] [place], [address] Potassium [Moles/Vol] 5.4 mmol/L High 3.3-5.1 [facility] Comment on above: Performed By: #### L 500.2500 ####[facility] [address] [place], [address] Sodium [Moles/Vol] 134 mmol/L Normal 133-145 [facility] Comment on above: Performed By: #### L 500.2500 ####[facility] [address] [place], [address] Urea nitrogen [Mass/Vol] 77 mg/dL High 4-19 [facility] Comment on above: Performed By: #### L 500.2500 ####[facility] [address] [place], [address] BUN/CRE 21.0 RATIO High 10-20 [facility] Comment on above: Performed By: #### L 500.2500 ####[facility] [address] [place], [address] Calcium [Mass/Vol] 8.7 mg/dL Normal 7.6-11.0 [facility] Comment on above: Performed By: #### L 500.2500 ####[facility] [address] [place], [address] Chloride [Moles/Vol] 104 mmol/L Normal 98-108 [facility] Comment on above: Performed By: #### L 500.2500 ####[facility] [address] [place], [address] CO2 [Moles/Vol] 17.5 mmol/L Low 21.0-32.0 [facility] Comment on above: Performed By: #### L 500.2500 ####[facility] [address] [place], [address] Creatinine [Mass/Vol] 3.34 mg/dL High 0.70-1.20 [facility] Comment on above: Performed By: #### L 500.2500 ####[facility] [address] [place], [address] ECRCL 15.24 ml/min Low 50-250 [facility] Comment on above: Performed By: #### L 500.2500 ####[facility] [address] [place], [address] GAP 15 Normal 5-15 [facility] Comment on above: Performed By: #### L 500.2500 ####[facility] [address] [place], [address] GFR/1.73 sq M.predicted among non-blacks MDRD (S/P/Bld) [Vol rate/Area] 18 mL/min/{1.73_m2} Low >60 [facility] Comment on above: Result Comment: mL/m in/1.73m2 CKD-EPI Creatinine Equation (2020) Performed By: #### L 500.2500 ####[facility] [address] [place], [address] Glucose [Mass/Vol] 208 mg/dL High 70-99 [facility] Comment on above: Performed By: #### L 500.2500 ####[facility] [address] [place], [address] Potassium [Moles/Vol] 5.0 mmol/L Normal 3.3-5.1 [facility] Comment on above: Performed By: #### L 500.2500 ####[facility] [address] [place], [address] Sodium [Moles/Vol] 137 mmol/L Normal 133-145 [facility] Comment on above: Performed By: #### L 500.2500 ####[facility] [address] [place], [address] Urea nitrogen [Mass/Vol] 70 mg/dL High 4-19 [facility] Comment on above: Performed By: #### L 500.2500 ####[facility] [address] [place], [address] BUN/CRE 21.1 RATIO High 10-20 [facility] Comment on above: Performed By: #### L 500.2500 ####[facility] [address] [place], [address] Calcium [Mass/Vol] 8.6 mg/dL Normal 7.6-11.0 [facility] Comment on above: Performed By: #### L 500.2500 ####[facility] [address] [place], [address] Chloride [Moles/Vol] 103 mmol/L Normal 98-108 [facility] Comment on above: Performed By: #### L 500.2500 ####[facility] [address] [place], [address] CO2 [Moles/Vol] 17.8 mmol/L Low 21.0-32.0 [facility] Comment on above: Performed By: #### L 500.2500 ####[facility] [address] [place], [address] Creatinine [Mass/Vol] 3.26 mg/dL High 0.70-1.20 [facility] Comment on above: Performed By: #### L 500.2500 ####[facility] [address] [place], [address] ECRCL 15.61 ml/min Low 50-250 [facility] Comment on above: Performed By: #### L 500.2500 ####[facility] [address] [place], [address] GAP 15 Normal 5-15 [facility] Comment on above: Performed By: #### L 500.2500 ####[facility] [address] [place], [address] GFR/1.73 sq M.predicted among non-blacks MDRD (S/P/Bld) [Vol rate/Area] 18 mL/min/{1.73_m2} Low >60 [facility] Comment on above: Result Comment: mL/m in/1.73m2 CKD-EPI Creatinine Equation (2020) Performed By: #### L 500.2500 ####[facility] [address] [place], [address] Glucose [Mass/Vol] 203 mg/dL High 70-99 [facility] Comment on above: Performed By: #### L 500.2500 ####[facility] [address] [place], [address] Potassium [Moles/Vol] 4.6 mmol/L Normal 3.3-5.1 [facility] Comment on above: Performed By: #### L 500.2500 ####[facility] [address] [place], [address] Sodium [Moles/Vol] 136 mmol/L Normal 133-145 [facility] Comment on above: Performed By: #### L 500.2500 ####[facility] [address] [place], [address] Urea nitrogen [Mass/Vol] 69 mg/dL High 4-19 [facility] Comment on above: Performed By: #### L 500.2500 ####[facility] [address] [place], [address] Bedside Glucoseon 04-04-2025 FINGERSTICK GLU 355 mg/dL High 74-106 [facility] Comment on above: Result Comment: ADITI GEMENT OF PATIENT CARE PER NURSING PROTOCOL Performed By: #### L 501.080 ####[facility] [address] [place], [address] FINGERSTICK GLU 307 mg/dL High 74-106 [facility] Comment on above: Result Comment: ADITI GEMENT OF PATIENT CARE PER NURSING PROTOCOL Performed By: #### L 501.080 ####[facility] [address] [place], [address] FINGERSTICK GLU 164 mg/dL High 74-106 [facility] Comment on above: Result Comment: ADITI GEMENT OF PATIENT CARE PER NURSING PROTOCOL Performed By: #### L 501.080 ####[facility] [address] [place], [address] FINGERSTICK GLU 209 mg/dL High 74-106 [facility] Comment on above: Result Comment: ADITI GEMENT OF PATIENT CARE PER NURSING PROTOCOL Performed By: #### L 501.080 ####[facility] [address] [place], [address] FINGERSTICK GLU 178 mg/dL High 74-106 [facility] Comment on above: Result Comment: ADITI GEMENT OF PATIENT CARE PER NURSING PROTOCOL Performed By: #### L 501.080 ####[facility] [address] [place], [address] FINGERSTICK GLU 183 mg/dL High 74-106 [facility] Comment on above: Result Comment: ADITI GEMENT OF PATIENT CARE PER NURSING PROTOCOL Performed By: #### L 501.080 ####[facility] [address] [place], [address] FINGERSTICK GLU 229 mg/dL High 74-106 [facility] Comment on above: Result Comment: ADITI GEMENT OF PATIENT CARE PER NURSING PROTOCOL Performed By: #### L 501.080 ####[facility] [address] [place], [address] FINGERSTICK GLU 174 mg/dL High 74-106 [facility] Comment on above: Result Comment: ADITI GEMENT OF PATIENT CARE PER NURSING PROTOCOL Performed By: #### L 501.080 ####[facility] [address] [place], [address] FINGERSTICK GLU 284 mg/dL High 74-106 [facility] Comment on above: Result Comment: ADITI GEMENT OF PATIENT CARE PER NURSING PROTOCOL Performed By: #### L 501.080 ####[facility] [address] [place], [address] FINGERSTICK GLU 235 mg/dL High [facility]106 [facility] Comment on above: Result Comment: ADITI GEMENT OF PATIENT CARE PER NURSING PROTOCOL Performed By: #### L 501.080 ####[facility] [address] [place], [address] FINGERSTICK GLU 250 mg/dL High -[address] [place] [address] Comment on above: Result Comment: ADITI GEMENT OF PATIENT CARE PER NURSING PROTOCOL Performed By: #### L 501.080 ####[facility] [address] [place], [address] FINGERSTICK GLU 317 mg/dL High [facility]106 [facility] Comment on above: Result Comment: ADITI GEMENT OF PATIENT CARE PER NURSING PROTOCOL Performed By: #### L 501.080 ####[facility] [address] [place], [address] FINGERSTICK GLU 366 mg/dL High 74-106 [facility] Comment on above: Result Comment: ADITI GEMENT OF PATIENT CARE PER NURSING PROTOCOL Performed By: #### L 501.080 ####[facility] [address] [place], [address] FINGERSTICK GLU 261 mg/dL High 74-106 [facility] Comment on above: Result Comment: ADITI GEMENT OF PATIENT CARE PER NURSING PROTOCOL Performed By: #### L 501.080 ####[facility] [address] [place], [address] CBC W/Diff, Automatedon 06-0 4-2024 Absolute Lymph 1.08 X10 3/uL Normal 0.83-4.51 [facility] Comment on above: Performed By: #### L 100.0100 ####[facility] [address] [place], [address] Absolute Neut 19.9 X10 3/uL High 2.0-7.7 [facility] Comment on above: Performed By: #### L 100.0100 ####[facility] [address] [place], [address] Basophils/100 WBC (Bld) 0.1 % Normal 0-1 [facility] Comment on above: Performed By: #### L 100.0100 ####[facility] [address] [place], [address] Eosinophils/100 WBC (Bld) 0.0 % Normal 0-5 [facility] Comment on above: Performed By: #### L 100.0100 ####[facility] [address] [place], [address] Erythrocyte distribution width (RBC) [Ratio] 13.6 % Normal 11.6-14.6 [facility] Comment on above: Performed By: #### L 100.0100 ####[facility] [address] [place], [address] Hematocrit (Bld) [Volume fraction] 22.8 % Low 40-54 [facility] Comment on above: Performed By: #### L 100.0100 ####[facility] [address] [place], [address] Hemoglobin (Bld) [Mass/Vol] 7.4 g/dL Low 13.0-16.5 [facility] Comment on above: Performed By: #### L 100.0100 ####[facility] [address] [facility] [place], [address] IG% 0.600 Normal 0.0-0.9 [facility] Comment on above: Result Comment: IG% - Immature Granulocytes (promyelocytes, myelocytes andmetamyelocytes) > 1% indicates that a LEFT SHIFT is Present. Performed By: #### L 100.0100 ####[facility] [address] [facility] [place], [address] Lymphocytes/100 WBC (Bld) 4.9 % Low 19-41 [facility] Comment on above: Performed By: #### L 100.0100 ####[facility] [address] [facility] [place], [address] MCH (RBC) [Entitic mass] 30.0 pg Normal 27.0-32.0 [facility] Comment on above: Performed By: #### L 100.0100 ####[facility] [address] [place], [address] MCHC (RBC) [Mass/Vol] 32.5 g/dL Normal 32-36 [facility] Comment on above: Performed By: #### L 100.0100 ####[facility] [address] [place], [address] MCV (RBC) [Entitic vol] 92.3 fL Normal 80-94 [facility] Comment on above: Performed By: #### L 100.0100 ####[facility] [address] [place], [address] Monocytes/100 WBC (Bld) 4.0 % Normal 0-10 [facility] Comment on above: Performed By: #### L 100.0100 ####[facility] [address] [place], [address] Neutrophils/100 WBC (Bld) 90.4 % High 47-70 [facility] Comment on above: Performed By: #### L 100.0100 ####[facility] [address] [place], [address] Nucleated RBC (Bld) [#/Vol] 0 10*3/uL Normal 0-5 [facility] Comment on above: Performed By: #### L 100.0100 ####[facility] [address] [place], [address] Platelet mean volume (Bld) [Entitic vol] 11.4 fL Normal 6.2-12.0 [facility] Comment on above: Performed By: #### L 100.0100 ####[facility] [address] [place], [address] Platelets (Bld) [#/Vol] 230 10*3/uL Normal 150-450 [facility] Comment on above: Performed By: #### L 100.0100 ####[facility] [address] [place], [address] RBC (Bld) [#/Vol] 2.47 10*6/uL Low 4.6-6.2 [facility] Comment on above: Performed By: #### L 100.0100 ####[facility] [address] [place], [address] RDW SD 45.9 fl High 35.1-43.9 [facility] Comment on above: Performed By: #### L 100.0100 ####[facility] [address] [place], [address] WBC (Bld) [#/Vol] 22.0 10*3/uL High 4.4-11.0 [facility] Comment on above: Performed By: #### L 100.0100 ####[facility] [address] [place], [address] Consultation - Nephrologyon 04-04-2025 Consultation - Nephrology Normal [facility] Creatinine, Urineon 04-04-20 25 URINE CREAT 138.00 mg/dL Normal 39.00-259.00 [facility] Comment on above: Performed By: #### L 502.0300, L502.0715 ####[facility] [address] [place], [address] Kidney and Bladderon 025 Kidney and Bladder Normal [facility] L501.4021on 04-04-2025 Trop T High Sen 2204 ng/L Invalid Interpretation Code <=22 [facility] Comment on above: Result Comment: Crit ical Result(s) Called at: 2 by: JEANNIE SHARMA Results read back by same. Performed By: #### L 501.4021 ####[facility] [address] [place], [address] Troponin T.cardiac [Mass/vol ume] in Serum or Plasma by High sensitivity methodOrdered By: Breezy Campbell on 04-04-2025 Troponin T.cardiac High sensitivity method [Mass/Vol] 2204 ng/L High <22 [facility] Comment on above: Delta: 58 on 5-0005Critical Result(s) Called at: 2232 by: JEANNIE SHARMA Results read back by same. Troponin T.cardiac High sensitivity method [Mass/Vol] 2263 ng/L High <22 [facility] Comment on above: Critical Result(s) C alled at: 0040 by: JENNIFER SHARMA Results read back by same. Urea Nitrogen, Urineon 04-04 URINE UREA 406 mg/dL Normal NO RANGE EST. [facility] Comment on above: Performed By: #### L 502.0300, L502.0715 ####[facility] [address] [place], [place], [address] Urine Cultureon 04-04-2025 URC Culture exhibits no growth. Normal [facility] Comment on above: Performed By: #### M 100.2200 ####[facility] [address] [place], [place], [address] Urine creatinine measurement (mass/volume)Ordered By: Grace Arnold on 04-04-2025 Creatinine (U) [Mass/Vol] 138.00 mg/dL 39.00-25 9.00 [facility] 12 Lead EKGon 04-03-2025 12 Lead EKG Normal [facility] Absolute lymphocyte countOrd ered By: John Brandon on 04-03-2025 Lymphocytes Auto (Unsp spec) [#/Vol] 2.12 10*3/uL 0.83-4.51 [facility] Absolute neutrophil countOrd ered By: John Brandon on 04-03-2025 Neutrophils (Bld) [#/Vol] 12.0 10*3/uL High 2.0-7.7 [facility] Activated partial thrombopla stin time (aPTT) in platelet poor plasma by coagulation aOrdered By: Grace Arnold on 04-03-2025 aPTT Coag (PPP) [Time] 212.0 s High 24.1-36.2 [facility] Comment on above: CRITICAL VALUE GRIMM Nadeem TO RElizabet OBREGONZO04/03/25 1243 Ness Huang.RESULTS READ BACK BY SAME. Activated partial thrombopla stin time (aPTT) in platelet poor plasma by coagulation aOrdered By: Dyana Hwang on 04-03-2025 aPTT Coag (PPP) [Time] 37.3 s High 24.1-36.2 [facility] Anion gap in Serum or Plasma Ordered By: John Brandon on 04-03-2025 Anion gap [Moles/Vol] 14 mmol/L 5-15 [facility] Assessment of wrist artery p atency prior to arterial punctureOrdered By: Dyana Hwang on 04-03-2025 Arterial patency Wrist artery --pre arterial puncture Positive [facility] Automated lymphocyte count a s percentage of total leukocytesOrdered By: John Brandon on 04-03-2025 Lymphocytes/100 WBC Auto (Unsp spec) 13.5 % Low 19-41 [facility] BUN/creatinine ratioOrdered By: John Brandon on 04-03-2025 Urea nitrogen/Creatinine [Mass ratio] 22.3 mg/mg High 10-20 [facility] Basic Metabolic Profile (BMP )on 04-03-2025 BUN/CRE 21.7 RATIO High - [facility] Comment on above: Performed By: #### L 500.2500 ####[facility] [address] [place], [address] Calcium [Mass/Vol] 8.5 mg/dL Normal 7.6-11.0 [facility] Comment on above: Performed By: #### L 500.2500 ####[facility] [address] [place], [address] Chloride [Moles/Vol] 102 mmol/L Normal 98-108 [facility] Comment on above: Performed By: #### L 500.2500 ####[facility] [address] [place], [address] CO2 [Moles/Vol] 17.3 mmol/L Low 21.0-32.0 [facility] Comment on above: Performed By: #### L 500.2500 ####[facility] [address] [place], [address] Creatinine [Mass/Vol] 3.02 mg/dL High 0.70-1.20 [facility] Comment on above: Performed By: #### L 500.2500 ####[facility] [address] [place], [address] ECRCL 16.69 ml/min Low 50-250 [facility] Comment on above: Performed By: #### L 500.2500 ####[facility] [address] [place], [address] GAP 16 High 5-15 [facility] Comment on above: Performed By: #### L 500.2500 ####[facility] [address] [place], [address] GFR/1.73 sq M.predicted among non-blacks MDRD (S/P/Bld) [Vol rate/Area] 20 mL/min/{1.73_m2} Low >60 [facility] Comment on above: Result Comment: mL/m in/1.73m2 CKD-EPI Creatinine Equation (2020) Performed By: #### L 500.2500 ####[facility] [address] [place], [address] Glucose [Mass/Vol] 275 mg/dL High 70-99 [facility] Comment on above: Performed By: #### L 500.2500 ####[facility] [address] [place], [address] Potassium [Moles/Vol] 4.5 mmol/L Normal 3.3-5.1 [facility] Comment on above: Performed By: #### L 500.2500 ####[facility] [address] [place], [address] Sodium [Moles/Vol] 136 mmol/L Normal 133-145 [facility] Comment on above: Performed By: #### L 500.2500 ####[facility] [address] [place], [address] Urea nitrogen [Mass/Vol] 66 mg/dL High 4-19 [facility] Comment on above: Performed By: #### L 500.2500 ####[facility] [address] [place], [address] BUN/CRE 22.9 RATIO High 10-20 [facility] Comment on above: Performed By: #### L 500.2500 ####[facility] [address] [place], [address] Calcium [Mass/Vol] 9.0 mg/dL Normal 7.6-11.0 [facility] Comment on above: Performed By: #### L 500.2500 ####[facility] [address] [place], [address] Chloride [Moles/Vol] 100 mmol/L Normal 98-108 [facility] Comment on above: Performed By: #### L 500.2500 ####[facility] [address] [place], [address] CO2 [Moles/Vol] 16.9 mmol/L Low 21.0-32.0 [facility] Comment on above: Performed By: #### L 500.2500 ####[facility] [address] [place], [address] Creatinine [Mass/Vol] 2.73 mg/dL High 0.70-1.20 [facility] Comment on above: Performed By: #### L 500.2500 ####[facility] [address] [place], [address] ECRCL 18.46 ml/min Low 50-250 [facility] Comment on above: Performed By: #### L 500.2500 ####[facility] [address] [place], [address] GAP 18 High 5-15 [facility] Comment on above: Performed By: #### L 500.2500 ####[facility] [address] [place], [address] GFR/1.73 sq M.predicted among non-blacks MDRD (S/P/Bld) [Vol rate/Area] 23 mL/min/{1.73_m2} Low >60 [facility] Comment on above: Result Comment: mL/m in/1.73m2 CKD-EPI Creatinine Equation (2020) Performed By: #### L 500.2500 ####[facility] [address] [place], [address] Glucose [Mass/Vol] 407 mg/dL High 70-99 [facility] Comment on above: Performed By: #### L 500.2500 ####[facility] [address] [place], [address] Potassium [Moles/Vol] 4.3 mmol/L Normal 3.3-5.1 [facility] Comment on above: Performed By: #### L 500.2500 ####[facility] [address] [place], [address] Sodium [Moles/Vol] 135 mmol/L Normal 133-145 [facility] Comment on above: Performed By: #### L 500.2500 ####[facility] [address] [place], [address] Urea nitrogen [Mass/Vol] 62 mg/dL High 4-19 [facility] Comment on above: Performed By: #### L 500.2500 ####[facility] [address] [place], [address] BUN/CRE 21.7 RATIO High 10-20 [facility] Comment on above: Performed By: #### L 500.2500 ####[facility] [address] [place], [address] Calcium [Mass/Vol] 8.6 mg/dL Normal 7.6-11.0 [facility] Comment on above: Performed By: #### L 500.2500 ####[facility] [address] [place], [address] Chloride [Moles/Vol] 98 mmol/L Normal 98-108 [facility] Comment on above: Performed By: #### L 500.2500 ####[facility] [address] [place], [address] CO2 [Moles/Vol] 13.6 mmol/L Low 21.0-32.0 [facility] Comment on above: Performed By: #### L 500.2500 ####[facility] [address] [place], [address] Creatinine [Mass/Vol] 2.67 mg/dL High 0.70-1.20 [facility] Comment on above: Performed By: #### L 500.2500 ####[facility] [address] [place], [address] ECRCL 18.87 ml/min Low 50-250 [facility] Comment on above: Performed By: #### L 500.2500 ####[facility] [address] [place], [address] GAP 21 High 5-15 [facility] Comment on above: Performed By: #### L 500.2500 ####[facility] [address] [place], [address] GFR/1.73 sq M.predicted among non-blacks MDRD (S/P/Bld) [Vol rate/Area] 23 mL/min/{1.73_m2} Low >60 [facility] Comment on above: Result Comment: mL/m in/1.73m2 CKD-EPI Creatinine Equation (2020) Performed By: #### L 500.2500 ####[facility] [address] [place], [address] Glucose [Mass/Vol] 638 mg/dL Invalid Interpretation Code 70-99 [facility] Comment on above: Result Comment: Crit ical Result(s) Called JINDERMULE at: 1553 by:COLETTE??Results read back by same. Performed By: #### L 500.2500 ####[facility] [address] [facility] [place], [address] Potassium [Moles/Vol] 4.4 mmol/L Normal 3.3-5.1 [facility] Comment on above: Performed By: #### L 500.2500 ####[facility] [address] [place], [address] Sodium [Moles/Vol] 133 mmol/L Normal 133-145 [facility] Comment on above: Performed By: #### L 500.2500 ####[facility] [address] [place], [address] Urea nitrogen [Mass/Vol] 58 mg/dL High 4-19 [facility] Comment on above: Performed By: #### L 500.2500 ####[facility] [address] [place], [address] BUN/CRE 22.3 RATIO High 10-20 [facility] Comment on above: Performed By: #### L 100.0100, L500.2500, L300.8000 ####[facility] [address] [place], [address] Calcium [Mass/Vol] 8.8 mg/dL Normal 7.6-11.0 [facility] Comment on above: Performed By: #### L 100.0100, L500.2500, L300.8000 ####[facility] [address] [place], [address] Chloride [Moles/Vol] 104 mmol/L Normal 98-108 [facility] Comment on above: Performed By: #### L 100.0100, L500.2500, L300.8000 ####[facility] [address] [place], [address] CO2 [Moles/Vol] 20.8 mmol/L Low 21.0-32.0 [facility] Comment on above: Performed By: #### L 100.0100, L500.2500, L300.8000 ####[facility] [address] [place], [address] Creatinine [Mass/Vol] 1.88 mg/dL High 0.70-1.20 [facility] Comment on above: Performed By: #### L 100.0100, L500.2500, L300.8000 ####[facility] [address] [place], [address] ECRCL 28.20 ml/min Low 50-250 [facility] Comment on above: Performed By: #### L 100.0100, L500.2500, L300.8000 ####[facility] [address] [place], [address] GAP 14 Normal 5-15 [facility] Comment on above: Performed By: #### L 100.0100, L500.2500, L300.8000 ####[facility] [address] [place], [address] GFR/1.73 sq M.predicted among non-blacks MDRD (S/P/Bld) [Vol rate/Area] 35 mL/min/{1.73_m2} Low >60 [facility] Comment on above: Result Comment: mL/m in/1.73m2 CKD-EPI Creatinine Equation (2020) Performed By: #### L 100.0100, L500.2500, L300.8000 ####[facility] [address] [place], [address] Glucose [Mass/Vol] 255 mg/dL High 70-99 [facility] Comment on above: Performed By: #### L 100.0100, L500.2500, L300.8000 ####[facility] [address] [place], [address] Potassium [Moles/Vol] 4.4 mmol/L Normal 3.3-5.1 [facility] Comment on above: Performed By: #### L 100.0100, L500.2500, L300.8000 ####[facility] [address] [place], [address] Sodium [Moles/Vol] 139 mmol/L Normal 133-145 [facility] Comment on above: Performed By: #### L 100.0100, L500.2500, L300.8000 ####[facility] [address] [place], [address] Urea nitrogen [Mass/Vol] 42 mg/dL High 4-19 [facility] Comment on above: Performed By: #### L 100.0100, L500.2500, L300.8000 ####[facility] [address] [place], [address] Basophil percentageOrdered B y: John Aleksandr on 04-03-2025 Basophils/100 WBC (Bld) 0.6 % 0-1 [facility] Bedside Glucoseon 04-03-2025 FINGERSTICK GLU 363 mg/dL High 74-[address] [place] [address] Comment on above: Result Comment: ADITI ESCOBEDO OF PATIENT CARE PER NURSING PROTOCOL Performed By: #### L 501.080 ####[facility] [address] [place], [address] FINGERSTICK GLU 454 mg/dL Invalid Interpretation Code [address] [place] [address] Comment on above: Result Comment: Dr James sim FollowedMANAGEMENT OF PATIENT CARE PER NURSING PROTOCOL Performed By: #### L 501.080 ####[facility] [address] [place], [address] FINGERSTICK GLU 496 mg/dL Invalid Interpretation Code [address] [place] [address] Comment on above: Result Comment: Dr James sim FollowedMANAGEMENT OF PATIENT CARE PER NURSING PROTOCOL Performed By: #### L 501.080 ####[facility] [address] [place], [address] FINGERSTICK GLU > 500 Invalid Interpretation Code [address] [place] [address] Comment on above: Result Comment: ADITI GEMENT OF PATIENT CARE PER NURSING PROTOCOL Performed By: #### L 501.080 ####[facility] [address] [place], [address] FINGERSTICK GLU > 500 Invalid Interpretation Code [address] Comment on above: Result Comment: ADITI GEMENT OF PATIENT CARE PER NURSING PROTOCOL Performed By: #### L 501.080 ####[facility] [address] [place], [address] FINGERSTICK GLU > 500 Invalid Interpretation Code [facility]106 [facility] Comment on above: Result Comment: ADITI GEMENT OF PATIENT CARE PER NURSING PROTOCOL Performed By: #### L 501.080 ####[facility] [address] [place], [address] FINGERSTICK GLU 435 mg/dL High [address] Comment on above: Result Comment: ADITI GEMENT OF PATIENT CARE PER NURSING PROTOCOL Performed By: #### L 501.080 ####[facility] [address] [place], [address] Bilirubin, totalOrdered By: Dyana Hwang on 04-03-2025 Bilirubin [Mass/Vol] 0.38 mg/dL 0.00-1.30 [facility] FILI TEST Positive Normal [facility] Comment on above: Performed By: #### L 9000.0800 ####[facility] [address] [place], [address] Base excess Calc (Bld) [Moles/Vol] -8 mmol/L Low -2 to +2 [facility] Comment on above: Performed By: #### L 9000.0800 ####[facility] [address] [place], [address] Blood Gas Type ART Normal [facility] Comment on above: Performed By: #### L 9000.0800 ####[facility] [address] [place], [address] CO2 [Moles/Vol] 18 mmol/L Normal [facility] Comment on above: Performed By: #### L 9000.0800 ####[facility] [address] [place], [address] FI02 30.0 Normal [facility] Comment on above: Performed By: #### L 0.0800 ####[facility] [address] [place], [address] HCO3 (Bld) [Moles/Vol] 17.5 mmol/L Low 22-26 [facility] Comment on above: Performed By: #### L 0.0800 ####[facility] [address] [place], [address] Mode Not entered Normal [facility] Comment on above: Performed By: #### L 0.0800 ####[facility] [address] [place], [address] O2 Delivery Dev BiPAP Normal [facility] Comment on above: Performed By: #### L 9000.0800 ####[facility] [address] [place], [address] pCO2 29.8 mmHg Low 35-45 [facility] Comment on above: Performed By: #### L 9000.0800 ####[facility] [address] [place], [address] PEEP 10 Normal [facility] Comment on above: Performed By: #### L 9000.0800 ####[facility] [address] [place], [address] pH (Bld) 7.38 [pH] Normal 7.35-7.45 [facility] Comment on above: Performed By: #### L 0.0800 ####[facility] [address] [place], [address] PIP 18 Normal [facility] Comment on above: Performed By: #### L 9000.0800 ####[facility] [address] [place], [address] PO2 83 mmHG Normal 75-100 [facility] Comment on above: Performed By: #### L 9000.0800 ####[facility] [address] [place], [address] RR 12 Normal [facility] Comment on above: Performed By: #### L 9000.0800 ####[facility] [address] [place], [address] SITE R Radial Normal [facility] Comment on above: Performed By: #### L 9000.0800 ####[facility] [address] [place], [address] SO2 96 Normal 95-99 [facility] Comment on above: Performed By: #### L 9000.0800 ####[facility] [address] [place], [address] Blood base excess determinat ionOrdered By: Dyana Hwang on 04-03-2025 Base excess Calc (BldV) [Moles/Vol] -8 mmol/L Low -2-2 [facility] Blood bicarbonate measuremen tOrdered By: Dyana Hwang on 04-03-2025 HCO3 (Bld) [Moles/Vol] 17.5 mmol/L Low 22-26 [facility] Blood cultureOrdered By: Elli Brandon on 04-03-2025 Bacteria identified Cx Nom (Bld) No growth in 5 days. [facility] Bacteria identified Cx Nom (Bld) No growth in 5 days. [facility] CBC W/Diff, Automatedon 06-0 Absolute Lymph 0.43 X10 3/uL Low 0.83-4.51 [facility] Comment on above: Performed By: #### L 100.0100 ####[facility] [address] [place], [address] Absolute Neut 12.4 X10 3/uL High 2.0-7.7 [facility] Comment on above: Performed By: #### L 100.0100 ####[facility] [address] [place], [address] Basophils/100 WBC (Bld) 0.3 % Normal 0-1 [facility] Comment on above: Performed By: #### L 100.0100 ####[facility] [address] [place], [address] Eosinophils/100 WBC (Bld) 0.0 % Normal 0-5 [facility] Comment on above: Performed By: #### L 100.0100 ####[facility] [address] [place], [address] Erythrocyte distribution width (RBC) [Ratio] 13.4 % Normal 11.6-14.6 [facility] Comment on above: Performed By: #### L 100.0100 ####[facility] [address] [place], [address] Hematocrit (Bld) [Volume fraction] 28.9 % Low 40-54 [facility] Comment on above: Performed By: #### L 100.0100 ####[facility] [address] [place], [address] Hemoglobin (Bld) [Mass/Vol] 9.3 g/dL Low 13.0-16.5 [facility] Comment on above: Performed By: #### L 100.0100 ####[facility] [address] [place], [address] IG% 0.500 Normal 0.0-0.9 [facility] Comment on above: Result Comment: IG% - Immature Granulocytes (promyelocytes, myelocytes andmetamyelocytes) > 1% indicates that a LEFT SHIFT is Present. Performed By: #### L 100.0100 ####[facility] [address] [place], [address] Lymphocytes/100 WBC (Bld) 3.3 % Low 19-41 [facility] Comment on above: Performed By: #### L 100.0100 ####[facility] [address] [place], [address] MCH (RBC) [Entitic mass] 30.1 pg Normal 27.0-32.0 [facility] Comment on above: Performed By: #### L 100.0100 ####[facility] [address] [place], [address] MCHC (RBC) [Mass/Vol] 32.2 g/dL Normal 32-36 [facility] Comment on above: Performed By: #### L 100.0100 ####[facility] [address] [place], [address] MCV (RBC) [Entitic vol] 93.5 fL Normal 80-94 [facility] Comment on above: Performed By: #### L 100.0100 ####[facility] [address] [place], [address] Monocytes/100 WBC (Bld) 1.1 % Normal 0-10 [facility] Comment on above: Performed By: #### L 100.0100 ####[facility] [address] [place], [address] Neutrophils/100 WBC (Bld) 94.8 % High 47-70 [facility] Comment on above: Performed By: #### L 100.0100 ####[facility] [address] [place], [address] Nucleated RBC (Bld) [#/Vol] 0 10*3/uL Normal 0-5 [facility] Comment on above: Performed By: #### L 100.0100 ####[facility] [address] [place], [address] Platelet mean volume (Bld) [Entitic vol] 11.4 fL Normal 6.2-12.0 [facility] Comment on above: Performed By: #### L 100.0100 ####[facility] [address] [place], [address] Platelets (Bld) [#/Vol] 268 10*3/uL Normal 150-450 [facility] Comment on above: Performed By: #### L 100.0100 ####[facility] [address] [place], [address] RBC (Bld) [#/Vol] 3.09 10*6/uL Low 4.6-6.2 [facility] Comment on above: Performed By: #### L 100.0100 ####[facility] [address] [place], [address] RDW SD 45.9 fl High 35.1-43.9 [facility] Comment on above: Performed By: #### L 100.0100 ####[facility] [address] [place], [address] WBC (Bld) [#/Vol] 13.0 10*3/uL High 4.4-11.0 [facility] Comment on above: Performed By: #### L 100.0100 ####[facility] [address] [place], [address] Absolute Lymph 2.12 X10 3/uL Normal 0.83-4.51 [facility] Comment on above: Performed By: #### L 100.0100, L500.2500, L300.8000 ####[facility] [address] [place], [address] Absolute Neut 12.0 X10 3/uL High 2.0-7.7 [facility] Comment on above: Performed By: #### L 100.0100, L500.2500, L300.8000 ####[facility] [address] [place], [address] Basophils/100 WBC (Bld) 0.6 % Normal 0-1 [facility] Comment on above: Performed By: #### L 100.0100, L500.2500, L300.8000 ####[facility] [address] [place], [address] Eosinophils/100 WBC (Bld) 1.9 % Normal 0-5 [facility] Comment on above: Performed By: #### L 100.0100, L500.2500, L300.8000 ####[facility] [address] [place], [address] Erythrocyte distribution width (RBC) [Ratio] 13.2 % Normal 11.6-14.6 [facility] Comment on above: Performed By: #### L 100.0100, L500.2500, L300.8000 ####[facility] [address] [place], [address] Hematocrit (Bld) [Volume fraction] 32.2 % Low 40-54 [facility] Comment on above: Performed By: #### L 100.0100, L500.2500, L300.8000 ####[facility] [address] [place], [address] Hemoglobin (Bld) [Mass/Vol] 10.2 g/dL Low 13.0-16.5 [facility] Comment on above: Performed By: #### L 100.0100, L500.2500, L300.8000 ####[facility] [address] [place], [address] IG% 0.600 Normal 0.0-0.9 [facility] Comment on above: Result Comment: IG% - Immature Granulocytes (promyelocytes, myelocytes andmetamyelocytes) > 1% indicates that a LEFT SHIFT is Present. Performed By: #### L 100.0100, L500.2500, L300.8000 ####[facility] [address] [place], [address] Lymphocytes/100 WBC (Bld) 13.5 % Low 19-41 [facility] Comment on above: Performed By: #### L 100.0100, L500.2500, L300.8000 ####[facility] [address] [place], [address] MCH (RBC) [Entitic mass] 29.9 pg Normal 27.0-32.0 [facility] Comment on above: Performed By: #### L 100.0100, L500.2500, L300.8000 ####[facility] [address] [place], [address] MCHC (RBC) [Mass/Vol] 31.7 g/dL Low 32-36 [facility] Comment on above: Performed By: #### L 100.0100, L500.2500, L300.8000 ####[facility] [address] [place], [address] MCV (RBC) [Entitic vol] 94.4 fL High 80-94 [facility] Comment on above: Performed By: #### L 100.0100, L500.2500, L300.8000 ####[facility] [address] [place], [address] Monocytes/100 WBC (Bld) 7.0 % Normal 0-10 [facility] Comment on above: Performed By: #### L 100.0100, L500.2500, L300.8000 ####[facility] [address] [place], [address] Neutrophils/100 WBC (Bld) 76.4 % High 47-70 [facility] Comment on above: Performed By: #### L 100.0100, L500.2500, L300.8000 ####[facility] [address] [place], [address] Nucleated RBC (Bld) [#/Vol] 0 10*3/uL Normal 0-5 [facility] Comment on above: Performed By: #### L 100.0100, L500.2500, L300.8000 ####[facility] [address] [place], [address] Platelet mean volume (Bld) [Entitic vol] 10.8 fL Normal 6.2-12.0 [facility] Comment on above: Performed By: #### L 100.0100, L500.2500, L300.8000 ####[facility] [address] [place], [address] Platelets (Bld) [#/Vol] 300 10*3/uL Normal 150-450 [facility] Comment on above: Performed By: #### L 100.0100, L500.2500, L300.8000 ####[facility] [address] [place], [address] RBC (Bld) [#/Vol] 3.41 10*6/uL Low 4.6-6.2 [facility] Comment on above: Performed By: #### L 100.0100, L500.2500, L300.8000 ####[facility] [address] [place], [address] RDW SD 45.3 fl High 35.1-43.9 [facility] Comment on above: Performed By: #### L 100.0100, L500.2500, L300.8000 ####[facility] [address] [place], [address] WBC (Bld) [#/Vol] 15.7 10*3/uL High 4.4-11.0 [facility] Comment on above: Performed By: #### L 100.0100, L500.2500, L300.8000 ####[facility] [address] [place], [address] CO2 (BldV) [Moles/Vol]Ordere d By: John Brandon on 04-03-2025 CO2 [Moles/Vol] 27 mmol/L 23-33 [facility] CTA Chest W/WO Contraston CTA Chest W/WO Contrast Normal [facility] Calculated very low density lipoprotein (VLDL) cholesterol measurementOrdered By: Dyana Hwang on 04-03-2025 Calculated very low density lipoprotein (VLDL) cholesterol measurement 9 mg/dL 5-40 [facility] Carbon dioxide, total [Moles /volume] in Central venous bloodOrdered By: John Brandon on 04-03-2025 CO2 [Moles/Vol] 20.8 mmol/L Low 21.0-32.0 [facility] Chest 1 View (Portable)on Chest 1 View (Portable) Normal [facility] Chloride assayOrdered By: Shabbir Brandon on 04-03-2025 Chloride [Moles/Vol] 104 mmol/L 98-108 [facility] Comprehensive Metabolic Prof ilon 04-03-2025 Albumin [Mass/Vol] 3.6 g/dL Normal 3.4-4.8 [facility] Comment on above: Performed By: #### L 500.4050, L501.9520, L509.7001, L500.4100 ####[facility] [address] [place], [address] Albumin/Globulin [Mass ratio] 1.5 {ratio} Normal 0.9-2.4 [facility] Comment on above: Performed By: #### L 500.4050, L501.9520, L509.7001, L500.4100 ####[facility] [address] [place], [address] ALK PHOS 80 U/L Normal 40-129 [facility] Comment on above: Performed By: #### L 500.4050, L501.9520, L509.7001, L500.4100 ####[facility] [address] [place], [address] ALT [Catalytic activity/Vol] 16 U/L Normal <=46 [facility] Comment on above: Performed By: #### L 500.4050, L501.9520, L509.7001, L500.4100 ####[facility] [address] [place], [address] AST [Catalytic activity/Vol] 24 U/L Normal <=37 [facility] Comment on above: Performed By: #### L 500.4050, L501.9520, L509.7001, L500.4100 ####[facility] [address] [place], [address] Bilirubin [Mass/Vol] 0.38 mg/dL Normal 0.00-1.30 [facility] Comment on above: Performed By: #### L 500.4050, L501.9520, L509.7001, L500.4100 ####[facility] [address] [place], [address] BUN/CRE 24.6 RATIO High 10-20 [facility] Comment on above: Performed By: #### L 500.4050, L501.9520, L509.7001, L500.4100 ####[facility] [address] [place], [address] Calcium [Mass/Vol] 7.9 mg/dL Normal 7.6-11.0 [facility] Comment on above: Performed By: #### L 500.4050, L501.9520, L509.7001, L500.4100 ####[facility] [address] [place], [address] Chloride [Moles/Vol] 104 mmol/L Normal 98-108 [facility] Comment on above: Performed By: #### L 500.4050, L501.9520, L509.7001, L500.4100 ####[facility] [address] [place], [address] CO2 [Moles/Vol] 15.5 mmol/L Low 21.0-32.0 [facility] Comment on above: Performed By: #### L 500.4050, L501.9520, L509.7001, L500.4100 ####[facility] [address] [place], [address] Creatinine [Mass/Vol] 1.77 mg/dL High 0.70-1.20 [facility] Comment on above: Performed By: #### L 500.4050, L501.9520, L509.7001, L500.4100 ####[facility] [address] [place], [address] ECRCL 28.47 ml/min Low 50-250 [facility] Comment on above: Performed By: #### L 500.4050, L501.9520, L509.7001, L500.4100 ####[facility] [address] [place], [address] GAP 18 High 5-15 [facility] Comment on above: Performed By: #### L 500.4050, L501.9520, L509.7001, L500.4100 ####[facility] [address] [place], [address] GFR/1.73 sq M.predicted among non-blacks MDRD (S/P/Bld) [Vol rate/Area] 38 mL/min/{1.73_m2} Low >60 [facility] Comment on above: Result Comment: mL/m in/1.73m2 CKD-EPI Creatinine Equation (2020) Performed By: #### L 500.4050, L501.9520, L509.7001, L500.4100 ####[facility] [address] [place], [address] Globulin (S) [Mass/Vol] 2.4 g/dL Normal 2.2-4.2 [facility] Comment on above: Performed By: #### L 500.4050, L501.9520, L509.7001, L500.4100 ####[facility] [address] [place], [address] Glucose [Mass/Vol] 428 mg/dL High 70-99 [facility] Comment on above: Performed By: #### L 500.4050, L501.9520, L509.7001, L500.4100 ####[facility] [address] [place], [address] Potassium [Moles/Vol] 4.5 mmol/L Normal 3.3-5.1 [facility] Comment on above: Performed By: #### L 500.4050, L501.9520, L509.7001, L500.4100 ####[facility] [address] [place], [address] Sodium [Moles/Vol] 137 mmol/L Normal 133-145 [facility] Comment on above: Performed By: #### L 500.4050, L501.9520, L509.7001, L500.4100 ####[facility] [address] [place], [address] T PROT 6.0 g/dL Normal 5.9-8.4 [facility] Comment on above: Performed By: #### L 500.4050, L501.9520, L509.7001, L500.4100 ####[facility] [address] [place], [address] Urea nitrogen [Mass/Vol] 44 mg/dL High 4-19 [facility] Comment on above: Performed By: #### L 500.4050, L501.9520, L509.7001, L500.4100 ####[facility] [address] [place], [address] Consultation - Cardiologyon 04-03-2025 Consultation - Cardiology Normal [facility] Consultation - Intensiviston 04-03-2025 Consultation - [employer] Technician Normal [facility] D-Dimer Quantitative (DVT/PE )on 04-03-2025 D-DIMER QUANT 1.86 FEU/ug/m Invalid Interpretation Code 0.27-0.49 [facility] Comment on above: Result Comment: D-Di shyanne ELEVATED (>0.49): Additional studies and clinicalassessments are indicated to conclude diagnosis of:Deep Vein Thrombosis (DVT) or Pulmonary Embolism (PE)CRITICAL VALUE CALLED TO [id number] Victor Hugo Santamaria.RESULTS READ BACK BY SAME. Performed By: #### L 100.0100, L500.2500, L300.8000 ####[facility] [address] [place], [address] Echo Completeon 04-03-2025 Echo Complete Normal [facility] Echocardiogram study reportO rdered By: Koffi Gibbs on 04-03-2025 Study report [facility] [address] [place] [address] Echo Complete 04/03/25 0920 MR#: [id number] Acct: [id number] Name: ENOC ARMANDO Rep #:[id number] : 1945 79 From: Koffi Gibbs MD [...] ~ Date Dictated: 04/03/25919 Date Transcribed: 04/03/251221 Public Policy Mediator: Signed [facility] Work Phone: Emergency Department Summary on 04-03-2025 Emergency Department Summary Normal [facility] Eosinophil percentageOrdered By: John Brandon on 04-03-2025 Eosinophils/100 WBC (Bld) 1.9 % 0-5 [facility] Erythrocyte distribution wid th ratioOrdered By: John Brandon on 04-03-2025 Erythrocyte distribution width (RBC) [Ratio] 13.2 % 11.6-14.6 [facility] Erythrocyte distribution wid th standard deviationOrdered By: John Brandon on 04-03-2025 Erythrocyte distribution width (RBC) [Ratio] 45.3 fl High 35.1-43.9 [facility] Glomerular filtration rate ( GFR) estimation/1.73 sq m using serum, plasma, or whole bOrdered By: John Brandon on 04-03-2025 GFR/1.73 sq M.predicted among non-blacks MDRD (S/P/Bld) [Vol rate/Area] 35 mL/min/{1.73_m2} Low >60 [facility] Comment on above: mL/min/1.73m2 CKD-EP I Creatinine Equation (2020) H AND P Exam - Hospitaliston 04-03-2025 H&P Exam - Hospitalist Normal [facility] Hematocrit Auto (Bld) [Volum e fraction]Ordered By: John Brandon on 04-03-2025 Hematocrit (Bld) [Volume fraction] 32.2 % Low 40-54 [facility] Hemoglobin measurementOrdere d By: John Brandon on 04-03-2025 Hemoglobin (Bld) [Mass/Vol] 10.2 g/dL Low 13.0-16.5 [facility] Immature granulocytes/100 WB C Auto (Bld)Ordered By: John Brandon on 04-03-2025 Immature granulocytes/100 WBC (Bld) 0.600 % 0.0-0.9 [facility] Comment on above: IG% - Immature Granu locytes (promyelocytes, myelocytes and metamyelocytes) > 1% indicates that a LEFT SHIFT is Present. Influenza virus A and B and SARS-CoV-2 (COVID-19) and Respiratory syncytial virus RNAOrdered By: John Brandon on 04-03-2025 SARS-CoV-2 (COVID-19) RNA ALICE+probe Ql (Unsp spec) [facility] International normalized rat io (INR) calculationOrdered By: Dyana Hwang on 04-03-2025 INR Coag (Bld) [Relative time] 1.0 {INR} [facility] L499.0042on 04-03-2025 Trop T High Sen Normal <=22 [facility] Comment on above: Result Comment: Canc elled via OM: Duplicate Order Performed By: #### L 499.0042 ####[facility] [address] [place], [place], [address] Trop T High Sen 76 ng/L Invalid Interpretation Code <=22 [facility] Comment on above: Result Comment: Crit ical Result(s) Called at:0312 by:??DASIA SHRESTHAN TO HARLEY Results read back by same. Performed By: #### L 499.0042 ####[facility] [address] [place], [address] L499.0043on 04-03-2025 Trop T High Sen Normal <=22 [facility] Comment on above: Result Comment: Canc elled via OM: Duplicate Order Performed By: #### L 499.0043 ####[facility] [address] [place], [address] Trop T High Sen 80 ng/L Invalid Interpretation Code <=22 [facility] Comment on above: Result Comment: Crit ical Result(s) Called at: 0515 by: DASIA JOSEPH??Results read back by same. Performed By: #### L 499.0043 ####[facility] [address] [place], [address] L501.4021on 04-03-2025 Trop T High Sen 58 ng/L Invalid Interpretation Code <=22 [facility] Comment on above: Result Comment: Crit ical Result(s) Called at: 0058 by: DASIA ALBRIGHT??Results read back by same. Performed By: #### L 503.7509, L501.4021 ####[facility] [address] [facility] [place], [address] L503.7505on 04-03-2025 Natriuretic peptide B (Bld) [Mass/Vol] 6552 pg/mL High <=1800 [facility] Comment on above: Result Comment: Hear t Failure Unlikely: < 300 pg/mLHeart Failure Likely< 50 Years: > 450 pg/mL50-75 Years: > 900 pg/mL>75 Years: > 1800 pg/mL Performed By: #### L 5037505, L501.4021 ####[facility] [address] [facility] [place], [address] L509.7001on 04-03-2025 Procalcitonin 0.31 ng/mL High <=0.10 [facility] Comment on above: Result Comment: Inte [...] By: #### L 500.4050, L501.9520, L509.7001, L500.4100 ####[facility] [address] [place] [place], [address] LDL calc ser/plasOrdered By: Dyana Hwang on 04-03-2025 Cholesterol in LDL [Mass/Vol] 80 mg/dL [facility] Comment on above: Fesedqeljo=753-688 m g/dL & Higher Qefn=658 mg/dL or greater Laboratory - Chemistry and C hemistry - challengeOrdered By: Dyana Hwang on 04-03-2025 AST [Catalytic activity/Vol] 24 U/L <38 [facility] Lactic Acidon 04-03-2025 Lactate [Moles/Vol] 1.3 mmol/L Normal 0.0-2.0 [facility] Comment on above: Order Comment: Y Performed By: #### L 503.6005, M200.1000 ####[facility] [address] [place], [place], [id number] Lactic acid measurementOrder ed By: John Brandon on 04-03-2025 Lactate [Moles/Vol] 1.3 mmol/L 0.0-2.0 [facility] Legionella Antigen Urineon 0 04-03-2025 LEGU Normal [facility] Comment on above: Performed By: #### M 300.7600 ####[facility] [address] [place], [place], [id number] Lipid Profileon 04-03-2025 CHOL:HDL 2.87 Normal [facility] Comment on above: Performed By: #### L 500.4050, L501.9520, L509.7001, L500.4100 ####[facility] [address] [place], [address] Cholesterol [Mass/Vol] 137 mg/dL Normal <=200 [facility] Comment on above: Result Comment: Chol esterol level, Desirable <200 mg/dLBorderline high cholesterol 200-239 mg/dLHigh cholesterol >=240 mg/dLRecommendations of the NCEP Adult Treatment Panel for thefolling risk-cutoff thresholds for the [place] Americanpulation. Performed By: #### L 500.4050, L501.9520, L509.7001, L500.4100 ####[facility] [address] [place], [address] Cholesterol in HDL [Mass/Vol] 48 mg/dL Normal [facility] Comment on above: Result Comment: Anastacia onal Cholesterol Education Program (NCEP) guidelines:<40 mg/dL: Low HDL-cholesterol (major risk factor for CHD)>= 60 mg/dL: High HDL-cholesterol (negative risk factor forCHD)HDL-cholesterol is affected by a number of factors, e.g.smoking, exercise, hormones, sex and age. Performed By: #### L 500.4050, L501.9520, L509.7001, L500.4100 ####[facility] [address] [place], [address] Cholesterol in LDL [Mass/Vol] 80 mg/dL Normal [facility] Comment on above: Result Comment: Bord crfcik=514-867 mg/dL Higher Fwrl=554 mg/dL or greater Performed By: #### L 500.4050, L501.9520, L509.7001, L500.4100 ####[facility] [address] [place], [address] Cholesterol in VLDL [Mass/Vol] 9 mg/dL Normal 5-40 [facility] Comment on above: Performed By: #### L 500.4050, L501.9520, L509.7001, L500.4100 ####[facility] [address] [place], [address] Triglyceride [Mass/Vol] 44 mg/dL Normal [facility] Comment on above: Result Comment: The drugs N-Acetylcysteine and Metamizole may falselydepress this assay.Normal range: <150 mg/dLBorderline High: 150-199 mg/dLHigh: 200-499 mg/dLVery High: >500 mg/dL Performed By: #### L 500.4050, L501.9520, L509.7001, L500.4100 ####[facility] [address] [place], [address] M100.678on 04-03-2025 M100.678 SARS-CoV-2 (COVID 19) Negative INFLUENZA A Negative INFLUENZA B Negative RSV PCR Negative Normal [facility] Comment on above: Performed By: #### M 100.678 ####[facility] [address] [place], [address] M8200.1075on 04-03-2025 M8200.1075 Pending MRSA PCR MRSA NEGATIVE STAPH. AUREUS PCR STAPH. AUREUS NEGATIVE Normal [facility] Comment on above: Performed By: #### M 8200.1075 ####[facility] [address] [place], [address] MCV (mean corpuscular volume ) determinationOrdered By: John Brandon on 04-03-2025 MCV (RBC) [Entitic vol] 94.4 fL High 80-94 [facility] Magnesiumon 04-03-2025 Magnesium [Mass/Vol] 2.3 mg/dL High 1.5-2.2 [facility] Comment on above: Order Comment: Comme nts: may add to ED labs Performed By: #### L 501.5200, L300.3900, L300.4310 ####[facility] [address] [place], [address] Magnesium measurement (mass/ volume)Ordered By: Dyana Hwang on 04-03-2025 Magnesium (Unsp spec) [Mass/Vol] 2.3 mg/dL High 1.5-2.2 [facility] Mean corpuscular hemoglobin (MCH) determinationOrdered By: John Brandon on 04-03-2025 MCH (RBC) [Entitic mass] 29.9 pg 27.0-32.0 [facility] Mean corpuscular hemoglobin concentration (MCHC) determinationOrdered By: John Brandon on 04-03-2025 MCHC (RBC) [Mass/Vol] 31.7 g/dL Low 32-36 [facility] Mean platelet volume determi nationOrdered By: John Brandon on 04-03-2025 Platelet mean volume (Bld) [Entitic vol] 10.8 fL 6.2-12.0 [facility] Measurement, pHOrdered By: Aanbelle Hwang on 04-03-2025 pH (Unsp spec) 7.38 [pH] 7.35-7.45 [facility] Monocyte percentageOrdered B y: John Brandon on 04-03-2025 Monocytes/100 WBC (Bld) 7.0 % 0-10 [facility] Natriuretic peptide.B prohor katja N-Terminal [Mass/volume] in Serum or PlasmaOrdered By: John Brandon on 04-03-2025 Natriuretic peptide.B prohormone N-Terminal [Mass/Vol] 6552 pg/mL High <1800 [facility] Comment on above: Heart Failure Unlike ly: < 300 pg/mLHeart Failure Likely< 50 Years: > 450 pg/mL50-75 Years: > 900 pg/mL>75 Years: > 1800 pg/mL Neutrophil percentageOrdered By: John Brandon on 04-03-2025 Neutrophils/100 WBC (Bld) 76.4 % High 47-70 [facility] No Panel InformationOrdered By: Dyana Hwang on 04-03-2025 Bedside Blood Gas PEEP 10 [facility] Bld Gas Peak Inspiratory Pressure 18 [facility] Blood Gas Respiration Rate 12 [facility] Blood Gas Sample Site R Radial [facility] Blood Gas Specimen Type ART [facility] Blood Gas Vent Mode Not entered [facility] ART [facility] R Radial [facility] Not entered [facility] BiPAP [facility] 18 [facility] 12 [facility] 10 [facility] 24 U/L <38 [facility] No Panel InformationOrdered By: John Brandon on 04-03-2025 Blood Gas Clinical Comments 18. 10. 30% [facility] 18. 10. 30% [facility] Nucleated red blood cell per centageOrdered By: John Brandon on 04-03-2025 Nucleated RBC/100 WBC (Bld) [Ratio] 0 % 0-5 [facility] Partial Thromboplast Timeon 04-03-2025 aPTT Coag (Bld) [Time] 212.0 s Invalid Interpretation Code 24.1-36.2 [facility] Comment on above: Result Comment: CRIT ICAL VALUE CALLED TO Carol CORONA04/03/25 1243 Ness Huang.RESULTS READ BACK BY SAME. Performed By: #### L 300.4310 ####[facility] [facility] [address] [place], [address] aPTT Coag (Bld) [Time] 37.3 s High 24.1-36.2 [facility] Comment on above: Performed By: #### L 501.5200, L300.3900, L300.4310 ####[facility] [address] [place], [address] Platelet countOrdered By: Shabbir Brandon on 04-03-2025 Platelets (Bld) [#/Vol] 300 10*3/uL 150-450 [facility] Potassium measurement (mass/ volume)Ordered By: John Brandon on 04-03-2025 Potassium (Unsp spec) [Mass/Vol] 4.4 mmol/L 3.3-5.1 [facility] Procalcitonin [Mass/volume] in Serum or Plasma by ImmunoassayOrdered By: Dyana Hwang on 04-03-2025 Procalcitonin IA [Mass/Vol] 0.31 ng/mL High <0.11 [facility] Comment on above: Interpretation:<0.10 -0.25 ng/mL: [...] Coag (PPP) [Relative time] 1.0 {INR} Normal [facility] Comment on above: Performed By: #### L 501.5200, L300.3900, L300.4310 ####[facility] [address] [place], [address] PT Coag (PPP) [Time] 13.4 s Normal 11.7-14.9 [facility] Comment on above: Performed By: #### L 501.5200, L300.3900, L300.4310 ####[facility] [address] [place], [address] Prothrombin timeOrdered By: Dyana Hwang on 04-03-2025 PT Coag (PPP) [Time] 13.4 s 11.7-14.9 [facility] RBC Auto (Bld) [#/Vol]Ordere d By: John Brandon on 04-03-2025 RBC (Bld) [#/Vol] 3.41 10*6/uL Low 4.6-6.2 [facility] RESPIRATORY PANEL MOLECULARo n 04-03-2025 RP PANEL Normal [facility] Comment on above: Performed By: #### M 100.638 ####[facility] [address] [place], [address] Respiratory pathogens detect ion panel by molecular detection methodOrdered By: Dyana Hwang on 04-03-2025 Respiratory pathogens DNA and RNA panel ALICE+probe (Resp) [facility] Screening total cholesterol/ high density lipoprotein (HDL) cholesterol ratioOrdered By: Dyana Hwang on 04-03-2025 Cholesterol.total/Cholest santos in HDL [Mass ratio] 2.87 {ratio} [facility] Serum creatinine measurement (mass/volume)Ordered By: John Brandon on 04-03-2025 Creatinine [Mass/Vol] 1.88 mg/dL High 0.70-1.20 [facility] Serum globulin measurementOr dered By: Dyana Hwang on 04-03-2025 Globulin (S) [Mass/Vol] 2.4 g/dL 2.2-4.2 [facility] Serum glucose measurement (m ass/volume)Ordered By: John Brandon on 04-03-2025 Glucose [Mass/Vol] 255 mg/dL High 70-99 [facility] Serum or plasma alanine clayton otransferase (ALT) measurementOrdered By: Dyana Hwang on 04-03-2025 ALT [Catalytic activity/Vol] 16 U/L <47 [facility] Serum or plasma albumin nikkie urement (mass/volume)Ordered By: Dyana Hwang on 04-03-2025 Albumin [Mass/Vol] 3.6 g/dL 3.4-4.8 [facility] Serum or plasma albumin/glob ulin mass ratioOrdered By: Dyana Hwang on 04-03-2025 Albumin/Globulin [Mass ratio] 1.5 {ratio} 0.9-2.4 [facility] Serum or plasma alkaline dwight sphatase measurementOrdered By: Dyana Hwang on 04-03-2025 ALP [Catalytic activity/Vol] 80 U/L 40-129 [facility] Serum or plasma calcium nikkie urement (mass/volume)Ordered By: John Brandon on 04-03-2025 Calcium [Mass/Vol] 8.8 mg/dL 7.6-11.0 [facility] Serum or plasma cholesterol in HDL measurement (mass/volume)Ordered By: Dyana Hwang on 04-03-2025 Cholesterol in HDL [Mass/Vol] 48 mg/dL >40 [facility] Comment on above: National Cholesterol Education Program (NCEP) guidelines:<40 mg/dL: Low HDL-cholesterol (major risk factor for CHD)>= 60 mg/dL: High HDL-cholesterol (negative risk factor for CHD)HDL-cholesterol is affected by a number of factors, e.g. smoking, exercise, hormones, sex and age. Serum or plasma cholesterol measurement (mass/volume)Ordered By: Dyana Hwang on 04-03-2025 Cholesterol [Mass/Vol] 137 mg/dL <201 [facility] Comment on above: Cholesterol level, D esirable <200 mg/dLBorderline high cholesterol 200-239 mg/dLHigh cholesterol >=240 mg/dLRecommendations of the NCEP Adult Treatment Panel for the following risk-cutoff thresholds for the [place] population. Serum or plasma urea nitroge n measurement (mass/volume)Ordered By: John Brandon on 04-03-2025 Urea nitrogen [Mass/Vol] 42 mg/dL High 4-19 [facility] Sodium levelOrdered By: Lesley Brandon on 04-03-2025 Sodium [Moles/Vol] 139 mmol/L 133-145 [facility] Strep pneumoniae Antig(UR,CS F)on 04-03-2025 STPAG Normal [facility] Comment on above: Performed By: #### M 300.4600 ####[facility] [address] [place], [place], [id number] TSH DL <= 0.005 mIU/L QnOrde red By: Dyana Hwang on 04-03-2025 TSH Qn 0.530 uIU/mL 0.300-4.200 [facility] Thyroid Stim Hormone (TSH)on 04-03-2025 TSH 0.530 uIU/mL Normal 0.300-4.200 [facility] Comment on above: Performed By: #### L 500.4050, L501.9520, L509.7001, L500.4100 ####[facility] [address] [place], [place], [id number] Total carbon dioxide measure mentOrdered By: Dyana Hwang on 04-03-2025 CO2 [Moles/Vol] 18 mmol/L [facility] Total proteinOrdered By: Aut yadiran Jaiden on 04-03-2025 Protein [Mass/Vol] 6.0 g/dL 5.9-8.4 [facility] Triglycerides measurementOrd ered By: Dyana Hwang on 04-03-2025 Triglyceride [Mass/Vol] 44 mg/dL <199 [facility] Comment on above: The drugs N-Acetylcy steine and Metamizole may falsely depress this assay. Normal range: <150 mg/dLBorderline High: 150-199 mg/dLHigh: 200-499 mg/dLVery High: >500 mg/dL Troponin T.cardiac [Mass/vol ume] in Serum or Plasma by High sensitivity methodOrdered By: John Brandon on 04-03-2025 Troponin T.cardiac High sensitivity method [Mass/Vol] 80 ng/L High <22 [facility] Comment on above: Critical Result(s) C alled at: 0515 by: DASIA JOSEPH Results read back by same. Troponin T.cardiac High sensitivity method [Mass/Vol] 76 ng/L High <22 [facility] Comment on above: Critical Result(s) C alled at:0312 by: DASIA BOJORQUEZ Results read back by same. Troponin T.cardiac High sensitivity method [Mass/Vol] 58 ng/L High <22 [facility] Comment on above: Critical Result(s) C alled at: 0058 by: DASIA ALBRIGHT Results read back by same. Urine Legionella pneumophila antigen detectionOrdered By: Dyana Hwang on 04-03-2025 L. pneumophila Ag Ql (U) [facility] Urine cultureOrdered By: Cesilia Hwang on 04-03-2025 Bacteria identified Cx Nom (U) Culture exhibits no growth. [facility] Venous Blood Gason 5 Blood Gas Type JUANITA Normal [facility] Comment on above: Performed By: #### L 9000.0810 ####[facility] [address] [place], [address] CO2 [Moles/Vol] 27 mmol/L Normal 23-33 [facility] Comment on above: Performed By: #### L 9000.0810 ####[facility] [address] [place], [address] Comment 18. 10. 30% Normal [facility] Comment on above: Performed By: #### L 9000.0810 ####[facility] [address] [place], [address] FI02 30.0 Normal [facility] Comment on above: Performed By: #### L 9000.0810 ####[facility] [address] [place], [address] HCO3 (Bld) [Moles/Vol] 26 mmol/L Normal 22-26 [facility] Comment on above: Performed By: #### L 9000.0810 ####[facility] [address] [place], [address] O2 Delivery Dev BiPAP Normal [facility] Comment on above: Performed By: #### L 9000.0810 ####[facility] [address] [place], [address] SITE Not entered Normal [facility] Comment on above: Performed By: #### L 9000.0810 ####[facility] [address] [place], [address] VBG BE 0 mmol/L Normal -1.0-3.5 [facility] Comment on above: Performed By: #### L 9000.0810 ####[facility] [address] [place], [address] VBG pCO2 46.6 mmHg Normal 41-51 [facility] Comment on above: Performed By: #### L 9000.0810 ####[facility] [address] [place], [address] VBG pH 7.35 Normal 7.32-7.42 [facility] Comment on above: Performed By: #### L 9000.0810 ####[facility] [address] [place], [address] VBG PO2 44 mmHg High 25-40 [facility] Comment on above: Performed By: #### L 9000.0810 ####[facility] [address] [place], [address] VBG SO2 76 High 50-70 [facility] Comment on above: Performed By: #### L 9000.0810 ####[facility] [address] [place], [address] Venous blood base excess heriberto surementOrdered By: John Brandon on 04-03-2025 Base excess Calc (BldV) [Moles/Vol] 0 mmol/L -1.0-3.5 [facility] Venous blood bicarbonate heriberto surementOrdered By: John Brandon on 04-03-2025 HCO3 (Bld) [Moles/Vol] 26 mmol/L 22-26 [facility] Venous blood oxygen saturati on measurementOrdered By: John Brandon on 04-03-2025 Oxygen saturation in Blood 76 % High 50-70 [facility] Venous blood pH measurementO rdered By: John Brandon on 04-03-2025 pH (BldV) 7.35 [pH] 7.32-7.42 [facility] Venous blood partial pressur e of carbon dioxide measurementOrdered By: John Brandon on 04-03-2025 CO2 (BldV) [Partial pressure] 46.6 mm[Hg] 41-51 [facility] Venous blood partial pressur e of oxygen measurementOrdered By: John Brandon on 04-03-2025 Oxygen (BldV) [Partial pressure] 44 mm[Hg] High 25-40 [facility] White blood cell (WBC) count Ordered By: John Brandon on 04-03-2025 WBC (Bld) [#/Vol] 15.7 10*3/uL High 4.4-11.0 [facility] BASIC METABOLIC PANEL WITH A NION GAPon 03-24-2025 Calcium [Mass/Vol] 8.6 mg/dL Normal 8.6-10.3 [facility] Comment on above: Performed By: #### 9 3931 #### [facility] [address], [address] [place], [place] [address] Quality Assurance Tester: Jadon Velez MD Chloride [Moles/Vol] 104 mmol/L Normal 98-110 [facility] Comment on above: Performed By: #### 9 4800 #### [facility] [address], [address] [place], [place] [address] Quality Assurance Tester: Jadon Velez MD CO2 [Moles/Vol] 23 mmol/L Normal 20-32 [facility] Comment on above: Performed By: #### 9 2498 #### [facility] [address], [address] [place] [address] Quality Assurance Tester: Jadon Velez MD Creatinine [Mass/Vol] 1.96 mg/dL High 0.70-1.[address] [facility] Comment on above: Performed By: #### 9 2498 #### [facility] [address], [address] [place] [address] Quality Assurance Tester: Jadon Velez MD ELECTROLYTE BALANCE 11 mmol/L (calc) Normal 7-17 [facility] Comment on above: Performed By: #### 9 2498 #### [facility] [address], [address] [place] [address] Quality Assurance Tester: Jadon Velez MD GFR/1.73 sq M.predicted among non-blacks MDRD (S/P/Bld) [Vol rate/Area] 34 mL/min/{1.73_m2} Low > OR = 60 [facility] Comment on above: Performed By: #### 9 2498 #### [facility] [address], [address] [place] [address] Quality Assurance Tester: Jadon Velez MD Glucose [Mass/Vol] 301 mg/dL High 65-99 [facility] Comment on above: Result Comment: Fasting reference interval For someone without known diabetes, a glucose value >125 mg/dL indicates that they may have diabetes and this should be confirmed with a follow-up test. Performed By: #### 9 2498 #### [facility] [address], [address] [place] [address] Quality Assurance Tester: Jadon Velez MD Potassium [Moles/Vol] 4.2 mmol/L Normal 3.5-5.[address] [facility] Comment on above: Performed By: #### 9 2498 #### [facility] [address], [address] [place] [address] Quality Assurance Tester: Jadon Velez MD Sodium [Moles/Vol] 138 mmol/L Normal 135-146 [facility] Comment on above: Performed By: #### 9 2498 #### [facility] [address] [place] [address], [address] [place] [address] Quality Assurance Tester: Jadon Velez MD Urea nitrogen [Mass/Vol] 39 mg/dL High 7-25 [facility] Comment on above: Performed By: #### 9 2498 #### [facility] of [address], [address] [place] [address] Quality Assurance Tester: Jadon Velez MD Urea nitrogen/Creatinine [Mass ratio] 20 mg/mg Normal 6- [facility] Comment on above: Performed By: #### 9 2498 #### [facility] of [address], [address] [place] [address] Quality Assurance Tester: Jadon Velez MD APTT HEPARIN COVERAGEon aPTT Coag (Bld) [Time] 86 s High 23-34 [facility] Comment on above: Order Comment: Thera peutic range for APTT's is 68 - 104 seconds Performed By: #### 4 6848 ####[facility] [address] [address] Moody Martinez M.D. 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 Performed By: #### 4 6124 #### [facility] [address] [place], [place] [address] Moody Martinez M.D. 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 [id number] CBCon 03-05-2025 AUTO NRBC 0.0 % Normal [facility] Comment on above: Performed By: #### 4 5218 #### [facility] [address] [address] Moody Martinez M.D. [id number] AUTO NRBC ABS COUNT 0.00 K/mcL Normal 0.00-0.00 [facility] Comment on above: Performed By: #### 4 5218 #### [facility] [address] [address] Moody Martinez M.D. [id number] Erythrocyte distribution width (RBC) [Ratio] 13.0 % Normal 11.6-14.8 [facility] Comment on above: Performed By: #### 4 5218 #### [facility] [address] [address] Moody Martinez M.D. [id number] Hematocrit (Bld) [Volume fraction] 28.4 % Low 41.0-53.0 [facility] Comment on above: Performed By: #### 4 5218 #### [facility] [address] [address] Moody Martinez M.D. [id number] Hemoglobin (Bld) [Mass/Vol] 9.3 g/dL Low 13.5-17.5 [facility] Comment on above: Performed By: #### 4 5218 #### [facility] [address] [address] Moody Martinez M.D. [id number] MCH (RBC) [Entitic mass] 30.3 pg Normal 26.0-34.0 [facility] Comment on above: Performed By: #### 4 5218 #### [facility] [address] [address] Moody Martinez M.D. [id number] MCV (RBC) [Entitic vol] 92.5 fL Normal 80.0-100.0 [facility] Comment on above: Performed By: #### 4 5218 #### [facility] [address] [address] Moody Martinez M.D. [id number] MEAN CORPUSCULAR HEMOGLOBIN CONC 32.7 g/dL Normal 31.0-37.0 [facility] Comment on above: Performed By: #### 4 5218 #### [facility] [address] [address] Moody Martinez M.D. [id number] Platelet mean volume (Bld) [Entitic vol] 11.8 fL Normal 9.4-12.4 [facility] Comment on above: Performed By: #### 4 5218 #### [facility] [address] [address] Moody Martinez M.D. [id number] Platelets (Bld) [#/Vol] 191 10*3/uL Normal 150-400 [facility] Comment on above: Performed By: #### 4 5218 #### [facility] [address] [address] Moody Martinez M.D. [id number] RBC (Bld) [#/Vol] 3.07 10*6/uL Low 4.50-5.90 [facility] Comment on above: Performed By: #### 4 5218 #### [facility] [address] [address] Moody Martinez M.D. [id number] WBC (Bld) [#/Vol] 9.14 10*3/uL Normal 4.50-11.00 [facility] Comment on above: Performed By: #### 4 5218 ####[facility] [address] [address] Moody Martinez M.D. [id number] MAGNESIUM LEVELon 03-05-2025 Magnesium [Mass/Vol] 2.2 mg/dL Normal 1.6-2.4 [facility] Comment on above: Performed By: #### 4 6109 #### [facility] [address] [address] Moody Martinez M.D. [id number] POC GLUCOSE - [facility] 025 Glucose [Mass/Vol] 249 mg/dL High [address] [place] [address] Comment on above: Performed By: #### 4 6932 #### [facility] [address] [address] Moody Martinez M.D. [id number] Glucose [Mass/Vol] 188 mg/dL [address] Comment on above: Performed By: #### 4 6932 ####[facility] [address] [address] Moody Martinez M.D. [id number] Glucose [Mass/Vol] 115 mg/dL [address] Comment on above: Performed By: #### 4 6932 ####[facility] [address] [address] Moody Martinez M.D. [id number] POTASSIUM LEVELon 03-05-2025 Potassium [Moles/Vol] 3.4 mmol/L Low 3.5-5.1 [facility] Comment on above: Performed By: #### 4 6351 ####[facility] [address] [address] Moody Martinez M.D. [id number] APTT HEPARIN COVERAGEon aPTT Coag (Bld) [Time] 72 s High 23-34 [facility] Comment on above: Order Comment: Thera peutic range for APTT's is 68 - 104 seconds Performed By: #### 4 0884 #### [facility] [address] [place], [place] [address] Moody Martinez M.D. [id number] BASIC METABOLIC PANELon 05-0 Anion gap [Moles/Vol] 16 mmol/L Normal 10-20 [facility] Comment on above: Order Comment: [facility] has implemented the eGFR calculation approach that does not have a coefficient for race that conforms to the NKF-ASN Task Force Recommendations. Performed By: #### 4 6124 #### [facility] [address] [address] Moody Martinez M.D. [id number] Calcium [Mass/Vol] 8.3 mg/dL Low 8.4-10.2 [facility] Comment on above: Order Comment: [facility] has implemented the eGFR calculation approach that does not have a coefficient for race that conforms to the NKF-ASN Task Force Recommendations. Performed By: #### 4 6124 #### [facility] [address] [address] Moody Martinez M.D. [id number] Chloride [Moles/Vol] 103 mmol/L Normal 98-108 [facility] Comment on above: Order Comment: [facility] [employer] has implemented the eGFR calculation approach that does not have a coefficient for race that conforms to the NKF-ASN Task Force Recommendations. Performed By: #### 4 6124 #### [facility] [address] [address] Moody Martinez M.D. [id number] Creatinine [Mass/Vol] 1.89 mg/dL High 0.80-1.30 [facility] Comment on above: Order Comment: [facility] has implemented the eGFR calculation approach that does not have a coefficient for race that conforms to the NKF-ASN Task Force Recommendations. Performed By: #### 4 6124 #### [facility] [address] [address] Moody Martinez M.D. [id number] EGFR 35 mL/min/1.73 m2 Low >=60 [facility] Comment on above: Order Comment: [facility] has implemented the eGFR calculation approach that does not have a coefficient for race that conforms to the NKF-ASN Task Force Recommendations. Result Comment: Albin mated GFR was calculated using the 2020 CKD-EPI creatinine equation. Performed By: #### 4 6168 ####[facility] [address] [address] Moody Martinez M.D. [id number] Glucose [Mass/Vol] 190 mg/dL High 65-99 [facility] Comment on above: Order Comment: [facility] has implemented the eGFR calculation approach that does not have a coefficient for race that conforms to the NKF-ASN Task Force Recommendations. Performed By: #### 4 6136 ####[facility] [address] [address] Moody Martinez M.D. [id number] HCO3 (Bld) [Moles/Vol] 25 mmol/L Normal 21-32 [facility] Comment on above: Order Comment: [facility] [employer] has implemented the eGFR calculation approach that does not have a coefficient for race that conforms to the NKF-ASN Task Force Recommendations. Performed By: #### 4 6179 ####[facility] [address] [address] Moody Martinez M.D. [id number] Potassium [Moles/Vol] 3.5 mmol/L Normal 3.5-5.1 [facility] Comment on above: Order Comment: [facility] has implemented the eGFR calculation approach that does not have a coefficient for race that conforms to the NKF-ASN Task Force Recommendations. Performed By: #### 4 6124 ####[facility] [address] [address] Moody Martinez M.D. [id number] Sodium [Moles/Vol] 140 mmol/L Normal 135-145 [facility] Comment on above: Order Comment: [facility] has implemented the eGFR calculation approach that does not have a coefficient for race that conforms to the NKF-ASN Task Force Recommendations. Performed By: #### 4 6124 ####[facility] [address] [address] Moody Martinez M.D. [id number] Urea nitrogen [Mass/Vol] 45 mg/dL High 8-25 [facility] Comment on above: Order Comment: [facility] has implemented the eGFR calculation approach that does not have a coefficient for race that conforms to the NKF-ASN Task Force Recommendations. Performed By: #### 4 6124 #### LAB [address] [address] Moody Martinez M.D. [id number] Urea nitrogen/Creatinine [Mass ratio] 23.8 mg/mg High 10.0-20.0 [facility] Comment on above: Order Comment: [facility] has implemented the eGFR calculation approach that does not have a coefficient for race that conforms to the NKF-ASN Task Force Recommendations. Performed By: #### 4 6124 #### LAB [address] [address] Moody Martinez M.D. [id number] CBCon 03-04-2025 AUTO NRBC 0.0 % Normal [facility] Comment on above: Performed By: #### 4 [id number] #### LAB [address] [address] Moody Martinez M.D. [id number] AUTO NRBC ABS COUNT 0.00 K/mcL Normal 0.00-0.00 [facility] Comment on above: Performed By: #### 4 [id number] #### LAB [address] [id number] Moody Martinez M.D. [id number] Erythrocyte distribution width (RBC) [Ratio] 13.1 % Normal 11.6-14.8 [facility] Comment on above: Performed By: #### 4 [id number] #### LAB [address] [address] Moody Martinez M.D. [id number] Hematocrit (Bld) [Volume fraction] 28.1 % Low 41.0-53.0 [facility] Comment on above: Performed By: #### 4 [id number] #### LAB [address] [address] Moody Martinez M.D. [id number] Hemoglobin (Bld) [Mass/Vol] 9.0 g/dL Low 13.5-17.5 [facility] Comment on above: Performed By: #### 4 [id number] #### LAB [address] [address] Moody Martinez M.D. [id number] MCH (RBC) [Entitic mass] 30.6 pg Normal 26.0-34.0 [facility] Comment on above: Performed By: #### 4 [id number] #### LAB [address] [address] Moody Martinez M.D. [id number] MCV (RBC) [Entitic vol] 95.6 fL Normal 80.0-100.0 [facility] Comment on above: Performed By: #### 4 [id number] #### LAB [address] [address] Moody Martinez M.D. [id number] MEAN CORPUSCULAR HEMOGLOBIN CONC 32.0 g/dL Normal 31.0-37.0 [facility] Comment on above: Performed By: #### 4 [id number] #### LAB [address] [address] Moody Martinez M.D. [id number] Platelet mean volume (Bld) [Entitic vol] 11.8 fL Normal 9.4-12.4 [facility] Comment on above: Performed By: #### 4 [id number] #### LAB [address] [address] Moody Martinez M.D. [id number] Platelets (Bld) [#/Vol] 175 10*3/uL Normal 150-400 [facility] Comment on above: Performed By: #### 4 [id number] #### LAB [address] [address] Moody Martinez M.D. [id number] RBC (Bld) [#/Vol] 2.94 10*6/uL Low 4.50-5.90 [facility] Comment on above: Performed By: #### 4 [id number] #### LAB [address] [id number] Moody Martinez M.D. [id number] WBC (Bld) [#/Vol] 8.08 10*3/uL Normal 4.50-11.00 [facility] Comment on above: Performed By: #### 4 [id number] #### LAB [address] [address] Moody Martinez M.D. [id number] MAGNESIUM LEVELon 03-04-2025 Magnesium [Mass/Vol] 2.2 mg/dL Normal 1.6-2.4 [facility] Comment on above: Performed By: #### 4 6109 #### LAB [address] [address] Moody Martinez M.D. [id number] POC GLUCOSE - [facility] 025 Glucose [Mass/Vol] 51 mg/dL Off scale low [address] [place] [address] Comment on above: Order Comment: Criti christian result acted upon time of test. Test performed at bedside. Performed By: #### 4 6964 #### LAB [address] [address] Moody Martinez M.D. [id number] Glucose [Mass/Vol] 354 mg/dL [address] Comment on above: Performed By: #### 4 6926 #### LAB [address] [address] Moody Martinez M.D. [id number] Glucose [Mass/Vol] 338 mg/dL [address] Comment on above: Performed By: #### 4 6936 #### LAB [address] [address] Moody Martinez M.D. [id number] Glucose [Mass/Vol] 258 mg/dL [address] Comment on above: Performed By: #### 4 8666 ####[facility] [address] [id number] Moody Martinez M.D. [id number] Glucose [Mass/Vol] 242 mg/dL High 65-99 [facility] Comment on above: Performed By: #### 4 6932 #### LAB [address] [address] Moody Martinez M.D. [id number] POTASSIUM LEVELon 03-04-2025 Potassium [Moles/Vol] 4.1 mmol/L Normal 3.5-5.1 [facility] Comment on above: Result Comment: Slig htly Hemolyzed Performed By: #### 4 6351 ####[facility] [address] [address] Moody Martinez M.D. [id number] TROPONIN (ONCE)on 03-04-2025 BASELINE TROPONIN T NG/L 1494 ng/L Off scale high <=22 [facility] Comment on above: Performed By: #### L [id number] ####[facility] [address] [address] Moody Martinez M.D. [id number] TROPONIN T INTERPRETATION Possible acute cardiac injury. Normal [facility] Comment on above: Performed By: #### L [id number] ####[facility] [address] [address] Moody Martinez M.D. [id number] APTT HEPARIN COVERAGEon 05 aPTT Coag (Bld) [Time] 82 s High 23-34 [facility] Comment on above: Order Comment: Thera peutic range for APTT's is 68 - 104 seconds Performed By: #### 4 6932 #### [facility] [address] [address] Moody Martinez M.D. [id number] aPTT Coag (Bld) [Time] 92 s High 23-34 [facility] Comment on above: Order Comment: Thera peutic range for APTT's is 68 - 104 seconds Performed By: #### 4 6848 ####[facility] [address] [address] Moody Martinez M.D. [id number] aPTT Coag (Bld) [Time] 67 s High 23-34 [facility] Comment on above: Order Comment: Injur y/Trauma or Illness?:Illness/Other How long have you had these symptoms (acute/chronic)?:Acute Reason for exam?:cross clamp of aorta for CPB Type of Exam?:Initial Additional signs and symptoms?:cp Performed By: #### 4 6848 #### LAB [address] [address] Moody Martinez M.D. [id number] BASIC METABOLIC PANELon 05-0 Anion gap [Moles/Vol] 15 mmol/L Normal 10-20 [facility] Comment on above: Order Comment: [facility] has implemented the eGFR calculation approach that does not have a coefficient for race that conforms to the NKF-ASN Task Force Recommendations. Performed By: #### 4 6124 #### LAB [address] [address] Moody Martinez M.D. [id number] Calcium [Mass/Vol] 8.3 mg/dL Low 8.4-10.2 [facility] Comment on above: Order Comment: [facility] has implemented the eGFR calculation approach that does not have a coefficient for race that conforms to the NKF-ASN Task Force Recommendations. Performed By: #### 4 6124 #### LAB [address] [address] Moody Martinez M.D. [id number] Chloride [Moles/Vol] 103 mmol/L Normal 98-108 [facility] Comment on above: Order Comment: [facility] has implemented the eGFR calculation approach that does not have a coefficient for race that conforms to the NKF-ASN Task Force Recommendations. Performed By: #### 4 6124 #### LAB [address] [address] Moody Martinez M.D. [id number] Creatinine [Mass/Vol] 2.09 mg/dL High 0.80-1.30 [facility] Comment on above: Order Comment: [facility] has implemented the eGFR calculation approach that does not have a coefficient for race that conforms to the NKF-ASN Task Force Recommendations. Performed By: #### 4 6179 #### LAB [address] [address] Moody Martinez M.D. [id number] EGFR 31 mL/min/1.73 m2 Low >=60 [facility] Comment on above: Order Comment: [facility] has implemented the eGFR calculation approach that does not have a coefficient for race that conforms to the NKF-ASN Task Force Recommendations. Result Comment: Albin mated GFR was calculated using the 2020 CKD-EPI creatinine equation. Performed By: #### 4 6139 #### LAB [address] [address] Moody Martinez M.D. [id number] Glucose [Mass/Vol] 240 mg/dL High 65-99 [facility] Comment on above: Order Comment: [facility] [employer] has implemented the eGFR calculation approach that does not have a coefficient for race that conforms to the NKF-ASN Task Force Recommendations. Performed By: #### 4 6150 #### LAB [address] [address] Moody Martinez M.D. [id number] HCO3 (Bld) [Moles/Vol] 26 mmol/L Normal 21-32 [facility] Comment on above: Order Comment: [facility] [employer] has implemented the eGFR calculation approach that does not have a coefficient for race that conforms to the NKF-ASN Task Force Recommendations. Performed By: #### 4 6118 ####[facility] [address] [address] Moody Martinez M.D. [id number] Potassium [Moles/Vol] 3.6 mmol/L Normal 3.5-5.1 [facility] Comment on above: Order Comment: [facility] has implemented the eGFR calculation approach that does not have a coefficient for race that conforms to the NKF-ASN Task Force Recommendations. Performed By: #### 4 6126 ####[facility] [address] [id number] Moody Martinez M.D. [id number] Sodium [Moles/Vol] 140 mmol/L Normal 135-145 [facility] Comment on above: Order Comment: [facility] has implemented the eGFR calculation approach that does not have a coefficient for race that conforms to the NKF-ASN Task Force Recommendations. Performed By: #### 4 6124 #### LAB [address] [address] Moody Martinez M.D. [id number] Urea nitrogen [Mass/Vol] 49 mg/dL High 8-25 [facility] Comment on above: Order Comment: [facility] has implemented the eGFR calculation approach that does not have a coefficient for race that conforms to the NKF-ASN Task Force Recommendations. Performed By: #### 4 6124 #### LAB [address] [address] Moody Martinez M.D. [id number] Urea nitrogen/Creatinine [Mass ratio] 23.4 mg/mg High 10.0-20.0 [facility] Comment on above: Order Comment: [facility] has implemented the eGFR calculation approach that does not have a coefficient for race that conforms to the NKF-ASN Task Force Recommendations. Performed By: #### 4 6124 #### LAB [address] [address] Moody Martinez M.D. [id number] CBCon 03-03-2025 AUTO NRBC 0.0 % Normal [facility] Comment on above: Performed By: #### 4 5218 #### LAB [address] [address] Moody Martinez M.D. [id number] AUTO NRBC ABS COUNT 0.00 K/mcL Normal 0.00-0.00 [facility] Comment on above: Performed By: #### 4 5218 #### LAB [address] [address] Moody Martinez M.D. [id number] Erythrocyte distribution width (RBC) [Ratio] 13.5 % Normal 11.6-14.8 [facility] Comment on above: Performed By: #### 4 5218 #### LAB [address] [address] Moody Martinez M.D. [id number] Hematocrit (Bld) [Volume fraction] 28.5 % Low 41.0-53.0 [facility] Comment on above: Performed By: #### 4 5218 #### LAB [address] [address] Moody Martinez M.D. [id number] Hemoglobin (Bld) [Mass/Vol] 9.3 g/dL Low 13.5-17.5 [facility] Comment on above: Performed By: #### 4 5218 #### LAB [address] [address] Moody Martinez M.D. [id number] MCH (RBC) [Entitic mass] 30.8 pg Normal 26.0-34.0 [facility] Comment on above: Performed By: #### 4 5218 #### LAB [address] [address] Moody Martinez M.D. [id number] MCV (RBC) [Entitic vol] 94.4 fL Normal 80.0-100.0 [facility] Comment on above: Performed By: #### 4 5218 #### LAB [address] [address] Moody Martinez M.D. [id number] MEAN CORPUSCULAR HEMOGLOBIN CONC 32.6 g/dL Normal 31.0-37.0 [facility] Comment on above: Performed By: #### 4 5218 #### LAB [address] [address] Moody Martinez M.D. [id number] Platelet mean volume (Bld) [Entitic vol] 11.8 fL Normal 9.4-12.4 [facility] Comment on above: Performed By: #### 4 5218 #### LAB [address] [address] Moody Martinez M.D. [id number] Platelets (Bld) [#/Vol] 159 10*3/uL Normal 150-400 [facility] Comment on above: Performed By: #### 4 5218 #### LAB [address] [address] Moody Martinez M.D. [id number] RBC (Bld) [#/Vol] 3.02 10*6/uL Low 4.50-5.90 [facility] Comment on above: Performed By: #### 4 5218 ####[facility] [address] [address] Moody Martinez M.D. [id number] WBC (Bld) [#/Vol] 10.19 10*3/uL Normal 4.50-11.00 [facility] Comment on above: Performed By: #### 4 5218 #### LAB [address] [address] Moody Martinez M.D. [id number] MAGNESIUM LEVELon 03-03-2025 Magnesium [Mass/Vol] 2.3 mg/dL Normal 1.6-2.4 [facility] Comment on above: Performed By: #### 4 6109 ####[facility] [address] [address] Moody Martinez M.D. [id number] POC GLUCOSE [facility] 025 Glucose [Mass/Vol] 221 mg/dL High [address] [place] [address] Comment on above: Performed By: #### L [id number] #### [facility] [address] [address] Moody Martinez M.D. [id number] Glucose [Mass/Vol] 189 mg/dL High [address] [place] [address] Comment on above: Performed By: #### 4 6932 ####[facility] [address] [address] Moody Martinez M.D. [id number] Glucose [Mass/Vol] 91 mg/dL Normal [address] [place] [address] Comment on above: Performed By: #### 4 6932 ####[facility] [address] [address] Moody Martinez M.D. [id number] Glucose [Mass/Vol] 146 mg/dL High 65-99 [facility] Comment on above: Performed By: #### 4 6932 #### LAB [address] [address] Moody Martinez M.D. [id number] TROPONIN (ONCE)on 03-03-2025 BASELINE TROPONIN T NG/L 1524 ng/L Off scale high <=22 [facility] Comment on above: Performed By: #### 4 6932 #### LAB [address] [address] Moody Martinez M.D. [id number] TROPONIN T INTERPRETATION Possible acute cardiac injury. Normal [facility] Comment on above: Performed By: #### 4 6932 #### LAB [address] [address] Moody Martinez M.D. [id number] APTT HEPARIN COVERAGEon aPTT Coag (Bld) [Time] 97 s High 23-34 [facility] Comment on above: Order Comment: Thera peutic range for APTT's is 68 - 104 seconds Performed By: #### 4 6848 #### LAB [address] [address] Moody Matrinez M.D. [id number] BASIC METABOLIC PANELon Anion gap [Moles/Vol] 17 mmol/L Normal 10-20 [facility] Comment on above: Order Comment: [facility] has implemented the eGFR calculation approach that does not have a coefficient for race that conforms to the NKF-ASN Task Force Recommendations. Performed By: #### 4 6124 ####[facility] [address] [address] Moody Martinez M.D. [id number] Calcium [Mass/Vol] 8.7 mg/dL Normal 8.4-10.2 [facility] Comment on above: Order Comment: [facility] has implemented the eGFR calculation approach that does not have a coefficient for race that conforms to the NKF-ASN Task Force Recommendations. Performed By: #### 4 6124 #### LAB [address] [id number] Moody Martinez M.D. [id number] Chloride [Moles/Vol] 101 mmol/L Normal 98-108 [facility] Comment on above: Order Comment: [facility] [employer] has implemented the eGFR calculation approach that does not have a coefficient for race that conforms to the NKF-ASN Task Force Recommendations. Performed By: #### 4 6124 #### LAB [address] [address] Moody Martinez M.D. [id number] Creatinine [Mass/Vol] 2.16 mg/dL High 0.80-1.30 [facility] Comment on above: Order Comment: [facility] [employer] has implemented the eGFR calculation approach that does not have a coefficient for race that conforms to the NKF-ASN Task Force Recommendations. Performed By: #### 4 6124 #### LAB [address] [address] Moody Martinez M.D. [id number] EGFR 30 mL/min/1.73 m2 Low >=60 [facility] Comment on above: Order Comment: [facility] [employer] has implemented the eGFR calculation approach that does not have a coefficient for race that conforms to the NKF-ASN Task Force Recommendations. Result Comment: Albin mated GFR was calculated using the 2020 CKD-EPI creatinine equation. Performed By: #### 4 6124 #### LAB [address] [address] Moody Martinez M.D. [id number] Glucose [Mass/Vol] 170 mg/dL High 65-99 [facility] Comment on above: Order Comment: [facility] [employer] has implemented the eGFR calculation approach that does not have a coefficient for race that conforms to the NKF-ASN Task Force Recommendations. Performed By: #### 4 6124 #### LAB [address] [address] Moody Martinez M.D. [id number] HCO3 (Bld) [Moles/Vol] 25 mmol/L Normal 21-32 [facility] Comment on above: Order Comment: [facility] [employer] has implemented the eGFR calculation approach that does not have a coefficient for race that conforms to the NKF-ASN Task Force Recommendations. Performed By: #### 4 6124 #### LAB [address] [address] Moody Martinez M.D. [id number] Potassium [Moles/Vol] 3.7 mmol/L Normal 3.5-5.1 [facility] Comment on above: Order Comment: [facility] [employer] has implemented the eGFR calculation approach that does not have a coefficient for race that conforms to the NKF-ASN Task Force Recommendations. Performed By: #### 4 6124 #### LAB [address] [address] Moody Martinez M.D. [id number] Sodium [Moles/Vol] 139 mmol/L Normal 135-145 [facility] Comment on above: Order Comment: [facility] [employer] has implemented the eGFR calculation approach that does not have a coefficient for race that conforms to the NKF-ASN Task Force Recommendations. Performed By: #### 4 6124 #### LAB [address] [address] Moody Martinez M.D. [id number] Urea nitrogen [Mass/Vol] 44 mg/dL High 8-25 [facility] Comment on above: Order Comment: [facility] [employer] has implemented the eGFR calculation approach that does not have a coefficient for race that conforms to the NKF-ASN Task Force Recommendations. Performed By: #### 4 6124 #### LAB [address] [address] Moody Martinez M.D. [id number] Urea nitrogen/Creatinine [Mass ratio] 20.4 mg/mg High 10.0-20.0 [facility] Comment on above: Order Comment: [facility] [employer] has implemented the eGFR calculation approach that does not have a coefficient for race that conforms to the NKF-ASN Task Force Recommendations. Performed By: #### 4 6124 #### LAB [address] [address] Moody Martinez M.D. [id number] CBCon 03-02-2025 AUTO NRBC 0.0 % Normal [facility] Comment on above: Order Comment: Injur y/Trauma or Illness?:Illness/Other How long have you had these symptoms (acute/chronic)?:Acute Reason for exam?:sob History of cancer?:. Surgeries, chemotherapy, or radiation?:cardiac catheterization Type of Exam?:Initial Additional signs and symptoms?:n Performed By: #### 4 5218 #### LAB [address] [address] Moody Martinez M.D. [id number] AUTO NRBC ABS COUNT 0.00 K/mcL Normal 0.00-0.00 [facility] Comment on above: Order Comment: Injur y/Trauma or Illness?:Illness/Other How long have you had these symptoms (acute/chronic)?:Acute Reason for exam?:sob History of cancer?:. Surgeries, chemotherapy, or radiation?:cardiac catheterization Type of Exam?:Initial Additional signs and symptoms?:n Performed By: #### 4 5218 #### LAB [address] [address] Moody Martinez M.D. [id number] Erythrocyte distribution width (RBC) [Ratio] 13.4 % Normal 11.6-14.8 [facility] Comment on above: Order Comment: Injur y/Trauma or Illness?:Illness/Other How long have you had these symptoms (acute/chronic)?:Acute Reason for exam?:sob History of cancer?:. Surgeries, chemotherapy, or radiation?:cardiac catheterization Type of Exam?:Initial Additional signs and symptoms?:n Performed By: #### 4 5218 #### LAB [address] [address] Moody Martinez M.D. [id number] Hematocrit (Bld) [Volume fraction] 31.3 % Low 41.0-53.0 [facility] Comment on above: Order Comment: Injur y/Trauma or Illness?:Illness/Other How long have you had these symptoms (acute/chronic)?:Acute Reason for exam?:sob History of cancer?:. Surgeries, chemotherapy, or radiation?:cardiac catheterization Type of Exam?:Initial Additional signs and symptoms?:n Performed By: #### 4 5218 #### LAB [address] [address] Moody Martinez M.D. [id number] Hemoglobin (Bld) [Mass/Vol] 10.3 g/dL Low 13.5-17.5 [facility] Comment on above: Order Comment: Injur y/Trauma or Illness?:Illness/Other How long have you had these symptoms (acute/chronic)?:Acute Reason for exam?:sob History of cancer?:. Surgeries, chemotherapy, or radiation?:cardiac catheterization Type of Exam?:Initial Additional signs and symptoms?:n Performed By: #### 4 5218 #### LAB [address] [address] Moody Martinez M.D. [id number] MCH (RBC) [Entitic mass] 31.0 pg Normal 26.0-34.0 [facility] Comment on above: Order Comment: Injur y/Trauma or Illness?:Illness/Other How long have you had these symptoms (acute/chronic)?:Acute Reason for exam?:sob History of cancer?:. Surgeries, chemotherapy, or radiation?:cardiac catheterization Type of Exam?:Initial Additional signs and symptoms?:n Performed By: #### 4 5218 #### LAB [address] [address] Moody Martinez M.D. [id number] MCV (RBC) [Entitic vol] 94.3 fL Normal 80.0-100.0 [facility] Comment on above: Order Comment: Injur y/Trauma or Illness?:Illness/Other How long have you had these symptoms (acute/chronic)?:Acute Reason for exam?:sob History of cancer?:. Surgeries, chemotherapy, or radiation?:cardiac catheterization Type of Exam?:Initial Additional signs and symptoms?:n Performed By: #### 4 5218 #### LAB [address] [address] Moody Martinez M.D. [id number] MEAN CORPUSCULAR HEMOGLOBIN CONC 32.9 g/dL Normal 31.0-37.0 [facility] Comment on above: Order Comment: Injur y/Trauma or Illness?:Illness/Other How long have you had these symptoms (acute/chronic)?:Acute Reason for exam?:sob History of cancer?:. Surgeries, chemotherapy, or radiation?:cardiac catheterization Type of Exam?:Initial Additional signs and symptoms?:n Performed By: #### 4 5218 #### LAB [address] [address] Moody Martinez M.D. [id number] Platelet mean volume (Bld) [Entitic vol] 11.6 fL Normal 9.4-12.4 [facility] Comment on above: Order Comment: Injur y/Trauma or Illness?:Illness/Other How long have you had these symptoms (acute/chronic)?:Acute Reason for exam?:sob History of cancer?:. Surgeries, chemotherapy, or radiation?:cardiac catheterization Type of Exam?:Initial Additional signs and symptoms?:n Performed By: #### 4 5218 #### LAB [address] [address] Moody Martinez M.D. [id number] Platelets (Bld) [#/Vol] 176 10*3/uL Normal 150-400 [facility] Comment on above: Order Comment: Injur y/Trauma or Illness?:Illness/Other How long have you had these symptoms (acute/chronic)?:Acute Reason for exam?:sob History of cancer?:. Surgeries, chemotherapy, or radiation?:cardiac catheterization Type of Exam?:Initial Additional signs and symptoms?:n Performed By: #### 4 5218 #### LAB [address] [address] Moody Martinez M.D. [id number] RBC (Bld) [#/Vol] 3.32 10*6/uL Low 4.50-5.90 [facility] Comment on above: Order Comment: Injur y/Trauma or Illness?:Illness/Other How long have you had these symptoms (acute/chronic)?:Acute Reason for exam?:sob History of cancer?:. Surgeries, chemotherapy, or radiation?:cardiac catheterization Type of Exam?:Initial Additional signs and symptoms?:n Performed By: #### 4 [id number] #### LAB [address] [address] Moody Martinez M.D. [id number] WBC (Bld) [#/Vol] 14.08 10*3/uL High 4.50-11.00 [facility] Comment on above: Order Comment: Injur y/Trauma or Illness?:Illness/Other How long have you had these symptoms (acute/chronic)?:Acute Reason for exam?:sob History of cancer?:. Surgeries, chemotherapy, or radiation?:cardiac catheterization Type of Exam?:Initial Additional signs and symptoms?:n Performed By: #### 4 [id number] #### LAB [address] [address] Moody Martinez M.D. [id number] AUTO NRBC 0.0 % Normal [facility] Comment on above: Performed By: #### 4 [id number] #### LAB [address] [address] Moody Martinez M.D. [id number] AUTO NRBC ABS COUNT 0.00 K/mcL Normal 0.00-0.00 [facility] Comment on above: Performed By: #### 4 5218 #### LAB [address] [address] Moody Martinez M.D. [id number] Erythrocyte distribution width (RBC) [Ratio] 13.4 % Normal 11.6-14.8 [facility] Comment on above: Performed By: #### 4 5218 #### LAB [address] [address] Moody Martinez M.D. [id number] Hematocrit (Bld) [Volume fraction] 34.4 % Low 41.0-53.0 [facility] Comment on above: Performed By: #### 4 5218 #### LAB [address] [address] Moody Martinez M.D. [id number] Hemoglobin (Bld) [Mass/Vol] 11.2 g/dL Low 13.5-17.5 [facility] Comment on above: Performed By: #### 4 [id number] #### LAB [address] [address] Moody Martinez M.D. [id number] MCH (RBC) [Entitic mass] 31.1 pg Normal 26.0-34.0 [facility] Comment on above: Performed By: #### 4 5218 #### LAB [address] [address] Moody Martinez M.D. [id number] MCV (RBC) [Entitic vol] 95.6 fL Normal 80.0-100.0 [facility] Comment on above: Performed By: #### 4 5218 #### LAB [address] [address] Moody Martinez M.D. [id number] MEAN CORPUSCULAR HEMOGLOBIN CONC 32.6 g/dL Normal 31.0-37.0 [facility] Comment on above: Performed By: #### 4 [id number] #### LAB [address] [address] Moody Martinez M.D. [id number] Platelet mean volume (Bld) [Entitic vol] 11.4 fL Normal 9.4-12.4 [facility] Comment on above: Performed By: #### 4 5218 #### LAB [address] [address] Moody Martinez M.D. [id number] Platelets (Bld) [#/Vol] 189 10*3/uL Normal 150-400 [facility] Comment on above: Performed By: #### 4 5218 #### LAB [address] [address] Moody Martinez M.D. [id number] RBC (Bld) [#/Vol] 3.60 10*6/uL Low 4.50-5.90 [facility] Comment on above: Performed By: #### 4 5218 #### LAB [address] [address] Moody Martinez M.D. [id number] WBC (Bld) [#/Vol] 11.96 10*3/uL High 4.50-11.00 [facility] Comment on above: Performed By: #### 4 5218 #### LAB [address] [place], [place] [address] Moody Martinez M.D. [id number] CONSULTon 03-02-2025 CONSULT General Cardiology Inpatient Consult Heart & Vascular [facility] 03/02/2025 Diogenes Garay MD [facility] Patient: Enoc Armando Date of : [...] plan for further details. Diogenes Garay MD [facility] Non-Invasive Cardiology [facility] Heart and Vascular Subjective Reason for Consultation: [...] ventricle systolic pressure is 49 mmHg. 10/27/24 [facility] Left Main The vessel is moderate in [...] Skin: Negative. (more content not included)... Normal [facility] ECHOCARDIOGRAM COMPLETEon ECHOCARDIOGRAM COMPLETE Patient Info Name: ENOC ARMANDO Age: 79 years : 1945 Gender: Male Ht: 170 cm Wt: 64 kg BSA: 1.74 m2 HR: 81 bpm BP: 112 / 57 mmHg Heart Rhythm: Sinus Rhythm Technical Quality: Good Exam Date: 03/02/2025 2:27 PM Patient Status: Inpatient Director Plans: Mikel Olvera RCDS Exam Type: ECHOCARDIOGRAM COMPLETE Study Info Indications - Chest pain R07.9 - Chest pain, unspecified Referring Physician: TANISHA Alves; [id number] BMI: 22.08 kg/m2 Summary 1. Left ventricular [...] Factors Hypertension: Yes Dyslipidemia: Yes Myocardial Infarction (NV): No Congestive Heart Failure (CHF): Hx CHF [...] mmHg MV VTI 35 cm MV Decel Montgomery 390 cm/s2 MV PHT 75 ms MV [...] Annular TDI (more content not included)... Normal [facility] MAGNESIUM LEVELon 03-02-2025 Magnesium [Mass/Vol] 2.2 mg/dL Normal 1.6-2.4 [facility] Comment on above: Performed By: #### 4 6109 ####[facility] LAB [address] [place] [address] Moody Martinez M.D. [id number] NT PRO BNPon 03-02-2025 Natriuretic peptide B (Bld) [Mass/Vol] 80650 pg/mL High 0-300 [facility] Comment on above: Order Comment: Pride Study Cut-offsRule In:< /= 50 Years >450 pg/mL51 Years - 75 Years >900 pg/mL76 Years - 99 Years >1800 pg/mLRule Out:All patients <300 pg/mL Performed By: #### 4 7395 #### LAB [address] [place], [place] [address] Moody Martinez M.D. [id number] POC GLUCOSE [facility] 025 Glucose [Mass/Vol] 287 mg/dL [address] Comment on above: Performed By: #### 4 6932 ####[facility] [address] [address] Moody Martinez M.D. [id number] Glucose [Mass/Vol] 137 mg/dL [address] Comment on above: Performed By: #### 4 6932 ####[facility] [address] [address] Moody Martinez M.D. [id number] Glucose [Mass/Vol] 252 mg/dL [address] Comment on above: Performed By: #### 4 6932 ####[facility] [address] [address] Moody Martinez M.D. [id number] Glucose [Mass/Vol] 332 mg/dL [address] Comment on above: Performed By: #### 4 6932 #### LAB [address] [address] Moody Martinez M.D. [id number] Glucose [Mass/Vol] 286 mg/dL [address] Comment on above: Performed By: #### 4 6932 #### LAB [address] [address] Moody Martinez M.D. [id number] Glucose [Mass/Vol] 168 mg/dL [address] Comment on above: Performed By: #### L [id number] #### [facility] LAB [address] [id number] Moody Martinez M.D. [id number] Glucose [Mass/Vol] 186 mg/dL High 65-99 [facility] Comment on above: Performed By: #### 4 6932 #### LAB [address] [id number] Mooyd Martinez M.D. [id number] POTASSIUM LEVELon 03-02-2025 Potassium [Moles/Vol] 3.9 mmol/L Normal 3.5-5.1 [facility] Comment on above: Performed By: #### 4 6351 #### LAB [address] [address] Moody Martinez M.D. [id number] TROPONIN X 2 (NOW AND REPEAT IN 2 HOURS)on 03-02-2025 TROPONIN T DELTA CHANGE INTERPRETATION Delta troponin requires at least 2 hours between collections. [facility] Comment on above: Performed By: #### 4 6608 #### LAB [address] [address] Moody Martinez M.D. [id number] TROPONIN T NG/L 1447 ng/L Off scale high <=22 [facility] Comment on above: Performed By: #### 4 6608 #### LAB [address] [address] Moody Martinez M.D. [id number] BASELINE TROPONIN T NG/L 1309 ng/L Off scale high <=22 [facility] Comment on above: Performed By: #### 4 6608 #### LAB [address] [address] Moody Martinez M.D. [id number] TROPONIN T INTERPRETATION Possible acute cardiac injury. [facility] Comment on above: Performed By: #### 4 6608 #### LAB [address] [address] Moody Martinez M.D. [id number] XR CHEST PA/APon 03-02-2025 XR CHEST PA/AP [...] (HCC) J18.9 Pneumonia E11.10 DKA (diabetic ketoacidosis) ([facility]) COMPARISON: 02/28/2025. TECHNIQUE: Single portable semierect view. FINDINGS: Cardiac silhouette and mediastinal contours are stable. No pneumothorax or large pleural effusion. There is development of ejuymqti-ab-vdublk bilateral mixed interstitial and alveolar opacities in both lungs consistent with pulmonary edema; although, underlying pneumonia/aspiration is not excluded. IMPRESSION: Development of zjtyvdvc-co-tdszqy mixed interstitial and alveolar opacities in both lungs consistent with pulmonary edema. Underlying pneumonia/aspiration not excluded. No pneumothorax or large pleural effusion. JAR/trw Workstation ID: [id number] Dictated by: KAHLIL VARGHESE on WedMarch 02, 2025 2:36:56 PM EDT Transcribed by: AFUA RALPH on WedMarch 02, 2025 3:15:52 PM EDT Finalized by: KAHLIL VARGHESE on WedMarch 02, 2025 3:23:59 PM EDT Normal [facility] Comment on above: Order Comment: Injur y/Trauma or Illness?:Illness/OtherHow long have you had these symptoms (acute/chronic)?:AcuteReason for exam?:SOBHistory of cancer?:.Surgeries, chemotherapy, or radiation?:cardiac catheterizationType of Exam?:InitialAdditional signs and symptoms?:. BASIC METABOLIC PANELon 05-0 Anion gap [Moles/Vol] 15 mmol/L Normal 10-20 [facility] Comment on above: Order Comment: [facility] has implemented the eGFR calculation approach that does not have a coefficient for race that conforms to the NKF-ASN Task Force Recommendations. Performed By: #### 4 6124 ####[facility] LAB [address] [place], [place] [address] Moody Martinez M.D. [id number] Calcium [Mass/Vol] 8.7 mg/dL Normal 8.4-10.2 [facility] Comment on above: Order Comment: [facility] has implemented the eGFR calculation approach that does not have a coefficient for race that conforms to the NKF-ASN Task Force Recommendations. Performed By: #### 4 6124 #### LAB [address] [place], [place] [address] Moody Martinez M.D. [id number] Chloride [Moles/Vol] 104 mmol/L Normal 98-108 [facility] Comment on above: Order Comment: [facility] has implemented the eGFR calculation approach that does not have a coefficient for race that conforms to the NKF-ASN Task Force Recommendations. Performed By: #### 4 6124 #### LAB [address] [address] Moody Martinez M.D. [id number] Creatinine [Mass/Vol] 2.49 mg/dL High 0.80-1.30 [facility] Comment on above: Order Comment: [facility] has implemented the eGFR calculation approach that does not have a coefficient for race that conforms to the NKF-ASN Task Force Recommendations. Performed By: #### 4 6124 #### LAB [address] [address] Moody Martinez M.D. [id number] EGFR 25 mL/min/1.73 m2 Low >=60 [facility] Comment on above: Order Comment: [facility] has implemented the eGFR calculation approach that does not have a coefficient for race that conforms to the NKF-ASN Task Force Recommendations. Result Comment: Albin mated GFR was calculated using the 2020 CKD-EPI creatinine equation. Performed By: #### 4 6124 #### LAB [address] [id number] Moody Martinez M.D. [id number] Glucose [Mass/Vol] 86 mg/dL Normal 65-99 [facility] Comment on above: Order Comment: [facility] has implemented the eGFR calculation approach that does not have a coefficient for race that conforms to the NKF-ASN Task Force Recommendations. Performed By: #### 4 6124 #### LAB [address] [address] Moody Martinez M.D. [id number] HCO3 (Bld) [Moles/Vol] 26 mmol/L Normal 21-32 [facility] Comment on above: Order Comment: [facility] has implemented the eGFR calculation approach that does not have a coefficient for race that conforms to the NKF-ASN Task Force Recommendations. Performed By: #### 4 6124 #### LAB [address] [address] Moody Martinez M.D. [id number] Potassium [Moles/Vol] 4.2 mmol/L Normal 3.5-5.1 [facility] Comment on above: Order Comment: [facility] has implemented the eGFR calculation approach that does not have a coefficient for race that conforms to the NKF-ASN Task Force Recommendations. Performed By: #### 4 6124 #### LAB [address] [address] Moody Martinez M.D. [id number] Sodium [Moles/Vol] 141 mmol/L Normal 135-145 [facility] Comment on above: Order Comment: [facility] has implemented the eGFR calculation approach that does not have a coefficient for race that conforms to the NKF-ASN Task Force Recommendations. Performed By: #### 4 6124 #### LAB [address] [address] Moody Martinez M.D. [id number] Urea nitrogen [Mass/Vol] 47 mg/dL High 8-25 [facility] Comment on above: Order Comment: [facility] has implemented the eGFR calculation approach that does not have a coefficient for race that conforms to the NKF-ASN Task Force Recommendations. Performed By: #### 4 6124 #### LAB [address] [address] Moody Martinez M.D. [id number] Urea nitrogen/Creatinine [Mass ratio] 18.9 mg/mg Normal 10.0-20.0 [facility] Comment on above: Order Comment: [facility] has implemented the eGFR calculation approach that does not have a coefficient for race that conforms to the NKF-ASN Task Force Recommendations. Performed By: #### 4 6124 #### LAB [address] [address] Moody Martinez M.D. [id number] CBCon 03-01-2025 AUTO NRBC 0.0 % Normal [facility] Comment on above: Performed By: #### 4 5218 ####[facility] LAB [address] [address] Moody Martinez M.D. [id number] AUTO NRBC ABS COUNT 0.00 K/mcL Normal 0.00-0.00 [facility] Comment on above: Performed By: #### 4 5218 #### LAB [address] [address] Moody Martinez M.D. [id number] Erythrocyte distribution width (RBC) [Ratio] 13.7 % Normal 11.6-14.8 [facility] Comment on above: Performed By: #### 4 5218 #### LAB [address] [address] Moody Martinez M.D. [id number] Hematocrit (Bld) [Volume fraction] 29.8 % Low 41.0-53.0 [facility] Comment on above: Performed By: #### 4 5218 #### LAB [address] [address] Mooyd Martinez M.D. [id number] Hemoglobin (Bld) [Mass/Vol] 9.9 g/dL Low 13.5-17.5 [facility] Comment on above: Performed By: #### 4 5218 #### LAB [address] [address] Moody Martinez M.D. [id number] MCH (RBC) [Entitic mass] 31.0 pg Normal 26.0-34.0 [facility] Comment on above: Performed By: #### 4 5218 #### LAB [address] [address] Moody Martinez M.D. [id number] MCV (RBC) [Entitic vol] 93.4 fL Normal 80.0-100.0 [facility] Comment on above: Performed By: #### 4 5218 #### LAB [address] [address] Moody Martinez M.D. [id number] MEAN CORPUSCULAR HEMOGLOBIN CONC 33.2 g/dL Normal 31.0-37.0 [facility] Comment on above: Performed By: #### 4 5218 #### LAB [address] [address] Moody Martinez M.D. [id number] Platelet mean volume (Bld) [Entitic vol] 10.9 fL Normal 9.4-12.4 [facility] Comment on above: Performed By: #### 4 5218 ####[facility] LAB [address] [address] Moody Martinez M.D. [id number] Platelets (Bld) [#/Vol] 186 10*3/uL Normal 150-400 [facility] Comment on above: Performed By: #### 4 5218 #### LAB [address] [address] Moody Martinez M.D. [id number] RBC (Bld) [#/Vol] 3.19 10*6/uL Low 4.50-5.90 [facility] Comment on above: Performed By: #### 4 5218 #### LAB [address] [address] Moody Martinez M.D. [id number] WBC (Bld) [#/Vol] 15.37 10*3/uL High 4.50-11.00 [facility] Comment on above: Performed By: #### 4 5218 #### LAB [address] [address] Moody Martinez M.D. [id number] MAGNESIUM LEVELon 03-01-2025 Magnesium [Mass/Vol] 2.1 mg/dL Normal 1.6-2.4 [facility] Comment on above: Performed By: #### 4 6109 ####[facility] LAB [address] [address] Moody Martinez M.D. [id number] PHOSPHORUSon 03-01-2025 Phosphate [Mass/Vol] 4.3 mg/dL High 2.3-3.7 [facility] Comment on above: Performed By: #### 4 6299 ####[facility] LAB [address] [address] Moody Martinez M.D. [id number] POC GLUCOSE - [facility] 025 Glucose [Mass/Vol] 249 mg/dL High [address] [place] [address] Comment on above: Performed By: #### 4 6932 ####[facility] LAB [address] [address] Moody Martinez M.D. [id number] Glucose [Mass/Vol] 79 mg/dL Normal [address] [place] [address] Comment on above: Performed By: #### 4 6932 ####[facility] LAB [address] [address] Moody Martinez M.D. [id number] Glucose [Mass/Vol] 237 mg/dL High [address] [place] [address] Comment on above: Performed By: #### 4 6932 ####[facility] LAB [address] [address] Moody Martinez M.D. [id number] Glucose [Mass/Vol] 85 mg/dL Normal [address] [place] [address] Comment on above: Performed By: #### 4 6944 ####[facility] LAB [address] [address] Moody Martinez M.D. [id number] Glucose [Mass/Vol] 167 mg/dL High [address] [place] [address] Comment on above: Performed By: #### 4 6968 ####[facility] LAB [address] [address] Moody Martinez M.D. [id number] BASIC METABOLIC PANELon 02-01 Anion gap [Moles/Vol] 16 mmol/L Normal 10-20 [facility] Comment on above: Order Comment: [facility] has implemented the eGFR calculation approach that does not have a coefficient for race that conforms to the NKF-ASN Task Force Recommendations. Performed By: #### 4 4014 #### LAB [address] [place], [place] [address] Moody Martinez M.D. [id number] Calcium [Mass/Vol] 9.5 mg/dL Normal 8.4-10.2 [facility] Comment on above: Order Comment: [facility] has implemented the eGFR calculation approach that does not have a coefficient for race that conforms to the NKF-ASN Task Force Recommendations. Performed By: #### 4 4014 #### LAB [address] [place], [place] [address] Moody Martinez M.D. [id number] Chloride [Moles/Vol] 103 mmol/L Normal 98-108 [facility] Comment on above: Order Comment: [facility] has implemented the eGFR calculation approach that does not have a coefficient for race that conforms to the NKF-ASN Task Force Recommendations. Performed By: #### 4 4014 #### LAB [address] [address] Moody Martinez M.D. [id number] Creatinine [Mass/Vol] 2.61 mg/dL High 0.80-1.30 [facility] Comment on above: Order Comment: [facility] has implemented the eGFR calculation approach that does not have a coefficient for race that conforms to the NKF-ASN Task Force Recommendations. Performed By: #### 4 4014 #### LAB [address] [place], [place] [address] Moody Martinez M.D. [id number] EGFR 24 mL/min/1.73 m2 Low >=60 [facility] Comment on above: Order Comment: [facility] has implemented the eGFR calculation approach that does not have a coefficient for race that conforms to the NKF-ASN Task Force Recommendations. Result Comment: Albin mated GFR was calculated using the 2020 CKD-EPI creatinine equation. Performed By: #### 4 4014 #### [facility] LAB [address] [address] Moody Martinez M.D. [id number] Glucose [Mass/Vol] 138 mg/dL High 65-99 [facility] Comment on above: Order Comment: [facility] has implemented the eGFR calculation approach that does not have a coefficient for race that conforms to the NKF-ASN Task Force Recommendations. Performed By: #### 4 4014 #### [facility] LAB [address] [address] Moody Martinez M.D. [id number] HCO3 (Bld) [Moles/Vol] 23 mmol/L Normal 21-32 [facility] Comment on above: Order Comment: [facility] has implemented the eGFR calculation approach that does not have a coefficient for race that conforms to the NKF-ASN Task Force Recommendations. Performed By: #### 4 4014 #### [facility] LAB [address] [address] Moody Maritnez M.D. [id number] Potassium [Moles/Vol] 4.0 mmol/L Normal 3.5-5.1 [facility] Comment on above: Order Comment: [facility] has implemented the eGFR calculation approach that does not have a coefficient for race that conforms to the NKF-ASN Task Force Recommendations. Performed By: #### 4 4014 #### [facility] LAB [address] [address] Moody Martinez M.D. [id number] Sodium [Moles/Vol] 138 mmol/L Normal 135-145 [facility] Comment on above: Order Comment: [facility] has implemented the eGFR calculation approach that does not have a coefficient for race that conforms to the NKF-ASN Task Force Recommendations. Performed By: #### 4 4014 #### [facility] LAB [address] [address] Moody Martinez M.D. [id number] Urea nitrogen [Mass/Vol] 50 mg/dL High 8-25 [facility] Comment on above: Order Comment: [facility] has implemented the eGFR calculation approach that does not have a coefficient for race that conforms to the NKF-ASN Task Force Recommendations. Performed By: #### 4 4014 #### LAB [address] [place], [place] [address] Moody Martinez M.D. [id number] Urea nitrogen/Creatinine [Mass ratio] 19.2 mg/mg Normal 10.0-20.0 [facility] Comment on above: Order Comment: [facility] has implemented the eGFR calculation approach that does not have a coefficient for race that conforms to the NKF-ASN Task Force Recommendations. Performed By: #### 4 4014 #### LAB [address] [id number] Moody Martinez M.D. [id number] Anion gap [Moles/Vol] 22 mmol/L [facility] 10 [facility] Comment on above: Order Comment: Injur y/Trauma or Illness?:Illness/Other How long have you had these symptoms (acute/chronic)?:Acute Reason for exam?:cross clamp of aorta for CPB Type of Exam?:Initial Additional signs and symptoms?:cp Performed By: #### 4 6124 #### LAB [address] [address] Moody Martinez M.D. [id number] Calcium [Mass/Vol] 9.6 mg/dL Normal 8.4-10.2 [facility] Comment on above: Order Comment: Injur y/Trauma or Illness?:Illness/Other How long have you had these symptoms (acute/chronic)?:Acute Reason for exam?:cross clamp of aorta for CPB Type of Exam?:Initial Additional signs and symptoms?:cp Performed By: #### 4 6193 #### LAB [address] [address] Moody Martinez M.D. [id number] Chloride [Moles/Vol] 100 mmol/L Normal 98-108 [facility] Comment on above: Order Comment: Injur y/Trauma or Illness?:Illness/Other How long have you had these symptoms (acute/chronic)?:Acute Reason for exam?:cross clamp of aorta for CPB Type of Exam?:Initial Additional signs and symptoms?:cp Performed By: #### 4 6154 #### LAB [address] [address] Moody Martinez M.D. [id number] Creatinine [Mass/Vol] 2.69 mg/dL High 0.80-1.30 [facility] Comment on above: Order Comment: Injur y/Trauma or Illness?:Illness/Other How long have you had these symptoms (acute/chronic)?:Acute Reason for exam?:cross clamp of aorta for CPB Type of Exam?:Initial Additional signs and symptoms?:cp Performed By: #### 4 6186 #### LAB [address] [address] Moody Martinez M.D. [id number] EGFR 23 mL/min/1.73 m2 Low >=60 [facility] Comment on above: Order Comment: Injur y/Trauma or Illness?:Illness/Other How long have you had these symptoms (acute/chronic)?:Acute Reason for exam?:cross clamp of aorta for CPB Type of Exam?:Initial Additional signs and symptoms?:cp Result Comment: Albin mated GFR was calculated using the 2020 CKD-EPI creatinine equation. Performed By: #### 4 6156 #### LAB [address] [address] Moody Martinez M.D. [id number] Glucose [Mass/Vol] 426 mg/dL Off scale high 65-99 [facility] Comment on above: Order Comment: Injur y/Trauma or Illness?:Illness/Other How long have you had these symptoms (acute/chronic)?:Acute Reason for exam?:cross clamp of aorta for CPB Type of Exam?:Initial Additional signs and symptoms?:cp Performed By: #### 4 6180 #### LAB [address] [address] Moody Martinez M.D. [id number] HCO3 (Bld) [Moles/Vol] 19 mmol/L Low 21-32 [facility] Comment on above: Order Comment: Injur y/Trauma or Illness?:Illness/Other How long have you had these symptoms (acute/chronic)?:Acute Reason for exam?:cross clamp of aorta for CPB Type of Exam?:Initial Additional signs and symptoms?:cp Performed By: #### 4 6124 #### LAB [address] [address] Moody Martinez M.D. [id number] Potassium [Moles/Vol] 4.0 mmol/L Normal 3.5-5.1 [facility] Comment on above: Order Comment: Injur y/Trauma or Illness?:Illness/Other How long have you had these symptoms (acute/chronic)?:Acute Reason for exam?:cross clamp of aorta for CPB Type of Exam?:Initial Additional signs and symptoms?:cp Performed By: #### 4 6124 #### LAB [address] [address] Moody Martinez M.D. [id number] Sodium [Moles/Vol] 137 mmol/L Normal 135-145 [facility] Comment on above: Order Comment: Injur y/Trauma or Illness?:Illness/Other How long have you had these symptoms (acute/chronic)?:Acute Reason for exam?:cross clamp of aorta for CPB Type of Exam?:Initial Additional signs and symptoms?:cp Performed By: #### 4 6124 #### LAB [address] [address] Moody Martinez M.D. [id number] Urea nitrogen [Mass/Vol] 51 mg/dL High 8-25 [facility] Comment on above: Order Comment: Injur y/Trauma or Illness?:Illness/Other How long have you had these symptoms (acute/chronic)?:Acute Reason for exam?:cross clamp of aorta for CPB Type of Exam?:Initial Additional signs and symptoms?:cp Performed By: #### 4 6124 #### LAB [address] [address] Moody Martinez M.D. [id number] Urea nitrogen/Creatinine [Mass ratio] 19.0 mg/mg Normal 10.0-20.0 [facility] Comment on above: Order Comment: Injur y/Trauma or Illness?:Illness/Other How long have you had these symptoms (acute/chronic)?:Acute Reason for exam?:cross clamp of aorta for CPB Type of Exam?:Initial Additional signs and symptoms?:cp Performed By: #### 4 6124 #### LAB [address] [address] Moody Martinez M.D. [id number] Anion gap [Moles/Vol] 27 mmol/L High 10-20 [facility] Comment on above: Order Comment: [facility] has implemented the eGFR calculation approach that does not have a coefficient for race that conforms to the NKF-ASN Task Force Recommendations. Performed By: #### 4 6124 #### LAB [address] [address] Moody Martinez M.D. [id number] Calcium [Mass/Vol] 9.6 mg/dL Normal 8.4-10.2 [facility] Comment on above: Order Comment: [facility] has implemented the eGFR calculation approach that does not have a coefficient for race that conforms to the NKF-ASN Task Force Recommendations. Performed By: #### 4 6124 #### LAB [address] [address] Moody Martinez M.D. [id number] Chloride [Moles/Vol] 97 mmol/L Low 98-108 [facility] Comment on above: Order Comment: [facility] [employer] has implemented the eGFR calculation approach that does not have a coefficient for race that conforms to the NKF-ASN Task Force Recommendations. Performed By: #### 4 6124 #### LAB [address] [address] Moody Martinez M.D. [id number] Creatinine [Mass/Vol] 2.72 mg/dL High 0.80-1.30 [facility] Comment on above: Order Comment: [facility] has implemented the eGFR calculation approach that does not have a coefficient for race that conforms to the NKF-ASN Task Force Recommendations. Performed By: #### 4 6108 #### LAB [address] [address] Moody Martinez M.D. [id number] EGFR 23 mL/min/1.73 m2 Low >=60 [facility] Comment on above: Order Comment: [facility] has implemented the eGFR calculation approach that does not have a coefficient for race that conforms to the NKF-ASN Task Force Recommendations. Result Comment: Albin mated GFR was calculated using the 2020 CKD-EPI creatinine equation. Performed By: #### 4 6124 #### LAB [address] [address] Moody Martinez M.D. [id number] Glucose [Mass/Vol] 529 mg/dL Off scale high 65-99 [facility] Comment on above: Order Comment: [facility] has implemented the eGFR calculation approach that does not have a coefficient for race that conforms to the NKF-ASN Task Force Recommendations. Performed By: #### 4 6124 #### LAB [address] [address] Moody Martinez M.D. [id number] HCO3 (Bld) [Moles/Vol] 17 mmol/L Low 21-32 [facility] Comment on above: Order Comment: [facility] has implemented the eGFR calculation approach that does not have a coefficient for race that conforms to the NKF-ASN Task Force Recommendations. Performed By: #### 4 6124 #### LAB [address] [address] Moody Martinez M.D. [id number] Potassium [Moles/Vol] 4.5 mmol/L Normal 3.5-5.1 [facility] Comment on above: Order Comment: [facility] has implemented the eGFR calculation approach that does not have a coefficient for race that conforms to the NKF-ASN Task Force Recommendations. Performed By: #### 4 6124 #### LAB [address] [address] Moody Martinez M.D. [id number] Sodium [Moles/Vol] 136 mmol/L Normal 135-145 [facility] Comment on above: Order Comment: [facility] has implemented the eGFR calculation approach that does not have a coefficient for race that conforms to the NKF-ASN Task Force Recommendations. Performed By: #### 4 6124 #### LAB [address] [id number] Moody Martinez M.D. [id number] Urea nitrogen [Mass/Vol] 52 mg/dL High 8-25 [facility] Comment on above: Order Comment: [facility] has implemented the eGFR calculation approach that does not have a coefficient for race that conforms to the NKF-ASN Task Force Recommendations. Performed By: #### 4 6124 #### LAB [address] [address] Moody Martinez M.D. [id number] Urea nitrogen/Creatinine [Mass ratio] 19.1 mg/mg Normal 10.0-20.0 [facility] Comment on above: Order Comment: [facility] has implemented the eGFR calculation approach that does not have a coefficient for race that conforms to the NKF-ASN Task Force Recommendations. Performed By: #### 4 6124 #### LAB [address] [address] Moody Martinez M.D. [id number] Anion gap [Moles/Vol] 28 mmol/L High 10-20 [facility] Comment on above: Order Comment: Injur y/Trauma or Illness?:Illness/Other How long have you had these symptoms (acute/chronic)?:Acute Reason for exam?:sob History of cancer?:. Surgeries, chemotherapy, or radiation?:cardiac catheterization Type of Exam?:Initial Additional signs and symptoms?:n Performed By: #### 4 6124 #### LAB [address] [address] Moody Martinez M.D. [id number] Calcium [Mass/Vol] 9.6 mg/dL Normal 8.4-10.2 [facility] Comment on above: Order Comment: Injur y/Trauma or Illness?:Illness/Other How long have you had these symptoms (acute/chronic)?:Acute Reason for exam?:sob History of cancer?:. Surgeries, chemotherapy, or radiation?:cardiac catheterization Type of Exam?:Initial Additional signs and symptoms?:n Performed By: #### 4 6124 #### LAB [address] [address] Moody Martinez M.D. [id number] Chloride [Moles/Vol] 97 mmol/L Low 98-108 [facility] Comment on above: Order Comment: Injur y/Trauma or Illness?:Illness/Other How long have you had these symptoms (acute/chronic)?:Acute Reason for exam?:sob History of cancer?:. Surgeries, chemotherapy, or radiation?:cardiac catheterization Type of Exam?:Initial Additional signs and symptoms?:n Performed By: #### 4 6124 #### LAB [address] [address] Moody Martinez M.D. [id number] Creatinine [Mass/Vol] 2.66 mg/dL High 0.80-1.30 [facility] Comment on above: Order Comment: Injur y/Trauma or Illness?:Illness/Other How long have you had these symptoms (acute/chronic)?:Acute Reason for exam?:sob History of cancer?:. Surgeries, chemotherapy, or radiation?:cardiac catheterization Type of Exam?:Initial Additional signs and symptoms?:n Performed By: #### 4 6124 #### LAB [address] [address] Moody Martinez M.D. [id number] EGFR 23 mL/min/1.73 m2 Low >=60 [facility] Comment on above: Order Comment: Injur y/Trauma or Illness?:Illness/Other How long have you had these symptoms (acute/chronic)?:Acute Reason for exam?:sob History of cancer?:. Surgeries, chemotherapy, or radiation?:cardiac catheterization Type of Exam?:Initial Additional signs and symptoms?:n Result Comment: Albin mated GFR was calculated using the 2020 CKD-EPI creatinine equation. Performed By: #### 4 6191 #### LAB [address] [address] Moody Martinez M.D. [id number] Glucose [Mass/Vol] 514 mg/dL Off scale high 65-99 [facility] Comment on above: Order Comment: Injur y/Trauma or Illness?:Illness/Other How long have you had these symptoms (acute/chronic)?:Acute Reason for exam?:sob History of cancer?:. Surgeries, chemotherapy, or radiation?:cardiac catheterization Type of Exam?:Initial Additional signs and symptoms?:n Performed By: #### 4 6116 #### LAB [address] [address] Moody Martinez M.D. [id number] HCO3 (Bld) [Moles/Vol] 18 mmol/L Low 21-32 [facility] Comment on above: Order Comment: Injur y/Trauma or Illness?:Illness/Other How long have you had these symptoms (acute/chronic)?:Acute Reason for exam?:sob History of cancer?:. Surgeries, chemotherapy, or radiation?:cardiac catheterization Type of Exam?:Initial Additional signs and symptoms?:n Performed By: #### 4 6148 #### LAB [address] [address] Moody Martinez M.D. [id number] Potassium [Moles/Vol] 5.9 mmol/L High 3.5-5.1 [facility] Comment on above: Order Comment: Injur y/Trauma or Illness?:Illness/Other How long have you had these symptoms (acute/chronic)?:Acute Reason for exam?:sob History of cancer?:. Surgeries, chemotherapy, or radiation?:cardiac catheterization Type of Exam?:Initial Additional signs and symptoms?:n Result Comment: Slig htly Hemolyzed Performed By: #### 4 3878 #### LAB [address] [address] Moody Martinez M.D. [id number] Sodium [Moles/Vol] 137 mmol/L Normal 135-145 [facility] Comment on above: Order Comment: Injur y/Trauma or Illness?:Illness/Other How long have you had these symptoms (acute/chronic)?:Acute Reason for exam?:sob History of cancer?:. Surgeries, chemotherapy, or radiation?:cardiac catheterization Type of Exam?:Initial Additional signs and symptoms?:n Performed By: #### 4 8358 #### LAB [address] [address] Moody Martinez M.D. [id number] Urea nitrogen [Mass/Vol] 50 mg/dL High 8-25 [facility] Comment on above: Order Comment: Injur y/Trauma or Illness?:Illness/Other How long have you had these symptoms (acute/chronic)?:Acute Reason for exam?:sob History of cancer?:. Surgeries, chemotherapy, or radiation?:cardiac catheterization Type of Exam?:Initial Additional signs and symptoms?:n Performed By: #### 4 6124 ####[facility] LAB [address] [address] Moody Martinez M.D. [id number] Urea nitrogen/Creatinine [Mass ratio] 18.8 mg/mg Normal 10.0-20.0 [facility] Comment on above: Order Comment: Injur y/Trauma or Illness?:Illness/Other How long have you had these symptoms (acute/chronic)?:Acute Reason for exam?:sob History of cancer?:. Surgeries, chemotherapy, or radiation?:cardiac catheterization Type of Exam?:Initial Additional signs and symptoms?:n Performed By: #### 4 6124 ####[facility] LAB [address] [address] Moody Martinez M.D. [id number] BETA-HYDROXYBUTYRATEon 02-28 BETA-HYDROXYBUTYRATE < Normal 0.0-0.3 [facility] Comment on above: Performed By: #### 4 5178 ####[facility] LAB [address] [address] Moody Martinez M.D. [id number] BETA-HYDROXYBUTYRATE 1.1 mmol/L High 0.0-0.3 [facility] Comment on above: Performed By: #### 4 5106 ####[facility] LAB [address] [address] Moody Martinez M.D. [id number] BETA-HYDROXYBUTYRATE 3.3 mmol/L High 0.0-0.3 [facility] Comment on above: Performed By: #### 4 4014 #### [facility] LAB [address] [address] Moody Martinez M.D. [id number] BETA-HYDROXYBUTYRATE 3.3 mmol/L High 0.0-0.3 [facility] Comment on above: Performed By: #### 4 4014 #### [facility] LAB [address] [address] Moody Martinez M.D. [id number] BLOOD CULTURE AEROBIC/ANAERO BICon 02-28-2025 BLOOD CULTURE AEROBIC/ANAEROBIC BLOOD CULTURE No Growth after 5 days [facility] Comment on above: Performed By: #### 4 4014 #### [facility] LAB [address] [address] Moody Martinez M.D. [id number] Performed By: #### 4 4014 ####[facility] LAB [address] [address] Moody Martinez M.D. [id number] CBC WITH AUTO DIFFERENTIALon 02-28-2025 AUTO NRBC 0.0 % [facility] Comment on above: Performed By: #### L [id number] ####[facility] LAB [address] [address] Moody Martinez M.D. [id number] AUTO NRBC ABS COUNT 0.00 K/mcL Normal 0.00-0.00 [facility] Comment on above: Performed By: #### L [id number] ####[facility] LAB [address] [address] Moody Martinez M.D. [id number] BASOPHILS ABSOLUTE COUNT 0.05 K/mcL Normal 0.00-0.30 [facility] Comment on above: Performed By: #### L [id number] ####[facility] LAB [address] [address] Moody Martinez M.D. [id number] Basophils/100 WBC (Bld) 0.3 % [facility] Comment on above: Performed By: #### L [id number] ####[facility] LAB [address] [address] Moody Martinez M.D. [id number] Eosinophils (Bld) [#/Vol] 0.00 10*3/uL Normal 0.00-0.5 0 [facility] Comment on above: Performed By: #### L [id number] #### LAB [address] [address] Moody Martinez M.D. [id number] Eosinophils/100 WBC (Bld) 0.0 % Normal [facility] Comment on above: Performed By: #### L [id number] #### LAB [address] [address] Moody Martinez M.D. [id number] Erythrocyte distribution width (RBC) [Ratio] 13.5 % Normal 11.6-14.8 [facility] Comment on above: Performed By: #### L [id number] #### LAB [address] [address] Moody Martinez M.D. [id number] Hematocrit (Bld) [Volume fraction] 40.2 % Low 41.0-53.0 [facility] Comment on above: Performed By: #### L [id number] #### LAB [address] [address] Moody Martinez M.D. [id number] Hemoglobin (Bld) [Mass/Vol] 13.1 g/dL Low 13.5-17.5 [facility] Comment on above: Performed By: #### L [id number] #### LAB [address] [place] [address] Moody Martinez M.D. [id number] IG ABSOLUTE 0.16 K/mcL Normal 0.00-0.30 [facility] Comment on above: Performed By: #### L [id number] #### LAB [address] [place] [address] Moody Martinez M.D. [id number] IG PERCENT 0.80 % Normal [facility] Comment on above: Result Comment: The IG parameter is the percentage of metamyelocytes, myelocytes and promyelocytes. An immature granulocyte count (IG) of 1% or more suggests the possibility of infection, an IG count of 3% is very likely related to an infection. Performed By: #### L [id number] #### LAB [address] [address] Moody Martinez M.D. [id number] Lymphocytes (Bld) [#/Vol] 1.13 10*3/uL Normal 0.90-4.0 0 [facility] Comment on above: Performed By: #### L [id number] #### LAB [address] [address] Moody Martinez M.D. [id number] Lymphocytes/100 WBC (Bld) 6.0 % Normal [facility] Comment on above: Performed By: #### L [id number] #### LAB [address] [address] Moody Martinez M.D. [id number] MCH (RBC) [Entitic mass] 30.8 pg Normal 26.0-34.0 [facility] Comment on above: Performed By: #### L [id number] #### LAB [address] [address] Moody Martinez M.D. [id number] MCV (RBC) [Entitic vol] 94.6 fL Normal 80.0-100.0 [facility] Comment on above: Performed By: #### L [id number] #### LAB [address] [address] Moody Martinez M.D. [id number] MEAN CORPUSCULAR HEMOGLOBIN CONC 32.6 g/dL Normal 31.0-37.0 [facility] Comment on above: Performed By: #### L [id number] #### LAB [address] [address] Moody Martinez M.D. [id number] Monocytes (Bld) [#/Vol] 0.91 10*3/uL High 0.30-0.90 [facility] Comment on above: Performed By: #### L [id number] #### LAB [address] [place] [address] Moody Martinez M.D. [id number] Monocytes/100 WBC (Bld) 4.8 % Normal [facility] Comment on above: Performed By: #### L [id number] #### LAB [address] [address] Moody Martinez M.D. [id number] NEUTROPHILS ABSOLUTE COUNT 16.63 K/mcL High 1.70-7.00 [facility] Comment on above: Performed By: #### L [id number] #### LAB [address] [address] Moody Martinez M.D. [id number] Neutrophils/100 WBC (Bld) 88.1 % Normal [facility] Comment on above: Performed By: #### L [id number] #### LAB [address] [address] Moody Martinez M.D. [id number] Platelet mean volume (Bld) [Entitic vol] 11.1 fL Normal 9.4-12.4 [facility] Comment on above: Performed By: #### L [id number] #### LAB [address] [address] Moody Martinez M.D. [id number] Platelets (Bld) [#/Vol] 258 10*3/uL Normal 150-400 [facility] Comment on above: Performed By: #### L [id number] #### LAB [address] [address] Moody Matrinez M.D. [id number] RBC (Bld) [#/Vol] 4.25 10*6/uL Low 4.50-5.90 [facility] Comment on above: Performed By: #### L [id number] #### LAB [address] [address] Moody Martinez M.D. [id number] WBC (Bld) [#/Vol] 18.88 10*3/uL High 4.50-11.00 [facility] Comment on above: Performed By: #### L [id number] #### LAB [address] [address] Moody Martinez M.D. [id number] COVID-19/INFLUENZA A,B MOLEC ULARon 02-28-2025 SARS-CoV-2 (COVID-19) Ab IA Ql SARS-COV-2 (FERDINAND) Not Detected INFLUENZA A (FERDINAND) Not Detected INFLUENZA B (FER[place]AND) Not Detected Normal Not Detected [facility] Comment on above: Performed By: #### L [id number] #### LAB [address] [place], [place] [address] Moody Martinez M.D. [id number] CRP, INFLAMMATIONon 02-29-20 CRP (INFLAMMATION) < Normal 0.0-10.0 [facility] Comment on above: Performed By: #### 4 5334 #### LAB [address] [place], [place] [address] Moody Martinez M.D. [id number] D-DIMER, QUANTITATIVEon 02-01 D-DIMER QUANTITATIVE 1.67 mcg/mL FEU High 0.27-0.49 [facility] Comment on above: Order Comment: A [...] By: #### 4 5434 #### LAB [address] [place], [place] [address] Moody Martinez M.D. [id number] ED Procedureon 02-28-2025 ED Procedure ECG 12 Lead Date/Time: 02/28/2025 4:33 AM Performed by: Conchita Yañez MD Authorized by: Conchita Yañez MD Interpreted by ED attending physician Rhythm: sinus rhythm and sinus tachycardia BPM: 103 Clinical impression: sinus tachycardia Comments: NE interval 144 QRS duration 90 QTc 437 AUTHENTICATED BY CONCHITA YAÑEZ, ON 02/28/2025 04:33:26 Normal [facility] ED Procedure EKG 12-lead Date/Time: 02/28/2025 3:26 AM Performed by: Conchita Yañez MD Authorized by: Conchita Yañez MD Interpreted by ED attending physician Rhythm: sinus rhythm BPM: 88 Comments: NE interval 162 QRS duration 102 QTc 491 T wave inversion in lead III and aVF as well as V5 V6 AUTHENTICATED BY CONCHITA YAÑEZ, ON 02/28/2025 03:26:34 Normal [facility] ED Prov Noteon 02-28-2025 ED Prov Note [facility] ATTENDING NOTE: NAME: Enoc Armando CSN: [id number] 79 y.o. 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 Hx: Family History Problem Relation [...] -- 02/28 (more content not included)... Normal [facility] HEMOGLOBIN A1Con 02-28-2025 Glucose [Mass/Vol] 171 mg/dL High 74-114 [facility] Comment on above: Performed By: #### 4 8202 ####[facility] LAB [address] [place], [place] [address] Moody Martinez M.D. [id number] HbA1c (Bld) [Mass fraction] 7.6 % High 4.2-5.6 [facility] Comment on above: Performed By: #### 4 8202 ####[facility] LAB [address] [place], [place] [address] Moody Martinez M.D. [id number] LACTIC ACID, PLASMAon 2024 LACTIC ACID, PLASMA 2.9 mmol/L High 0.6-2.0 [facility] Comment on above: Performed By: #### 4 4014 #### LAB [address] [address] Moody Martinez M.D. [id number] LEGIONELLA ANTIGEN, URINEon 02-28-2025 LEGIONELLA ANTIGEN, URINE LEGIONELLA ANT IGEN Negative for Legionella antigen COMMENT: Results may be affected if patient is on diuretics. INTERPRETATION OF RESULTS: Test detects Legionella pneumophilia serogroup 1 antigens in urine. Legionnaires disease cannot be ruled out since other serogroups and species may also cause disease. Normal [facility] Comment on above: Performed By: #### 4 4090 #### LAB [address] [address] Moody Martinez M.D. [id number] MRSA DNA AMPLIFIED PROBEon 0 02-28-2025 MRSA DNA AMPLIFIED PROBE Negative Normal Not Detected, MRSA NEGATIVE [facility] Comment on above: Performed By: #### 4 8061 #### LAB [address] [address] Moody Martinez M.D. [id number] NT PRO BNPon 02-28-2025 Natriuretic peptide B (Bld) [Mass/Vol] 9634 pg/mL High 0-[address] [place] [address] Comment on above: Order Comment: Injur y/Trauma or Illness?:Illness/Other How long have you had these symptoms (acute/chronic)?:Acute Reason for exam?:sob History of cancer?:. Surgeries, chemotherapy, or radiation?:cardiac catheterization Type of Exam?:Initial Additional signs and symptoms?:n Performed By: #### 4 7395 #### LAB [address] [address] Moody Martinez M.D. [id number] Natriuretic peptide B (Bld) [Mass/Vol] 3396 pg/mL High 0-300 [facility] Comment on above: Order Comment: Pride Study Cut-offsRule In:< /= 50 Years >450 pg/mL51 Years - 75 Years >900 pg/mL76 Years - 99 Years >1800 pg/mLRule Out:All patients <300 pg/mL Performed By: #### 4 7395 #### LAB [address] [address] Moody Martinez M.D. [id number] OSMOLALITYon 02-28-2025 Osmolality [Osmolality] 328 mosm/kg High 275-295 [facility] Comment on above: Performed By: #### 4 6230 #### LAB [address] [address] Moody Martinez M.D. [id number] PHOSPHORUSon 02-28-2025 Phosphate [Mass/Vol] 2.5 mg/dL Normal 2.3-3.7 [facility] Comment on above: Performed By: #### 4 6299 #### LAB [address] [address] Moody Martinez M.D. [id number] Phosphate [Mass/Vol] 2.7 mg/dL Normal 2.3-3.7 [facility] Comment on above: Performed By: #### 4 6299 ####[facility] [address] [address] Moody Martinez M.D. [id number] Phosphate [Mass/Vol] 3.5 mg/dL Normal 2.3-3.7 [facility] Comment on above: Performed By: #### 4 6299 #### LAB [address] [address] Moody Martinez M.D. [id number] POC GLUCOSE - [facility] 025 Glucose [Mass/Vol] 236 mg/dL [address] Comment on above: Performed By: #### 4 6932 #### LAB [address] [address] Moody Martinez M.D. [id number] Glucose [Mass/Vol] 153 mg/dL [address] Comment on above: Performed By: #### L [id number] #### [facility] [address] [address] Moody Martinez M.D. [id number] Glucose [Mass/Vol] 57 mg/dL Low [address] [place] [address] Comment on above: Performed By: #### 4 6932 ####[facility] [address] [address] Moody Martinez M.D. [id number] Glucose [Mass/Vol] 73 mg/dL Normal [address] [place] [address] Comment on above: Performed By: #### 4 6932 ####[facility] [address] [address] Moody Martinez M.D. [id number] Glucose [Mass/Vol] 102 mg/dL High [address] [place] [address] Comment on above: Performed By: #### L [id number] #### [facility] [address] [address] Moody Martinez M.D. [id number] Glucose [Mass/Vol] 119 mg/dL High [address] [place] [address] Comment on above: Performed By: #### 4 6932 #### [facility] [address] [address] Moody Martinez M.D. [id number] Glucose [Mass/Vol] 146 mg/dL High [address] [place] [address] Comment on above: Performed By: #### 4 6932 ####[facility] [address] [address] Moody Martinez M.D. [id number] Glucose [Mass/Vol] 177 mg/dL High [address] [place] [address] Comment on above: Performed By: #### 4 6932 ####[facility] [address] [address] Moody Martinez M.D. [id number] Glucose [Mass/Vol] 241 mg/dL High [address] [place] [address] Comment on above: Performed By: #### 4 6932 ####[facility] [address] [address] Moody Martinez M.D. [id number] Glucose [Mass/Vol] 326 mg/dL High [address] [place] [address] Comment on above: Performed By: #### 4 6932 ####[facility] [address] [address] Moody Martinez M.D. [id number] Glucose [Mass/Vol] 429 mg/dL Off scale high [address] Comment on above: Order Comment: Criti christian result acted upon time of test. Test performed at bedside. Performed By: #### 4 6932 ####[facility] [address] [address] Moody Martinez M.D. [id number] POC GLUCOSE > Off scale high [address] [place] [address] Comment on above: Order Comment: Criti christian result acted upon time of test. Test performed at bedside. Performed By: #### 4 6932 ####[facility] [address] [address] Moody Martinez M.D. [id number] POC GLUCOSE > Off scale [address] Comment on above: Order Comment: Criti christian result acted upon time of test. Test performed at bedside. Performed By: #### 4 6932 ####[facility] [address] [address] Moody Martinez M.D. [id number] POC VENOUS BLOOD GAS PANEL-P ROSE Lyons 02-28-2025 BASE EXCESS, VENOUS -5.7 Low -2.0-2.0 [facility] Comment on above: Performed By: #### 4 8717 #### LAB [address] [address] Moody Martinez M.D. [id number] FIO2 50 Normal [facility] Comment on above: Performed By: #### 4 8717 ####[facility] [address] [id number] Moody Martinez M.D. [id number] HCO3 (Bld) [Moles/Vol] 19.3 mmol/L Low 24.0-28.0 [facility] Comment on above: Performed By: #### 4 8717 #### LAB [address] [address] Moody Martinez M.D. [id number] Hematocrit (Bld) [Volume fraction] 37.3 % Low 41.0-53.0 [facility] Comment on above: Performed By: #### 4 8717 #### LAB [address] [address] Moody Martinez M.D. [id number] Hemoglobin (Bld) [Mass/Vol] 12.2 g/dL Low 13.5-17.5 [facility] Comment on above: Performed By: #### 4 8717 #### LAB [address] [address] Moody Martinez M.D. [id number] Oxygen saturation in Blood 93.7 % High 40.0-70.0 [facility] Comment on above: Performed By: #### 4 8717 #### LAB [address] [address] Moody Martinez M.D. [id number] PCO2 VENOUS 35.1 mm Hg Low 41.0-51.0 [facility] Comment on above: Performed By: #### 4 8717 #### LAB [address] [address] Moody Martinez M.D. [id number] PH VENOUS 7.35 Normal 7.32-7.42 [facility] Comment on above: Performed By: #### 4 8717 #### LAB [address] [address] Moody Martinez M.D. [id number] PO2 VENOUS 68 mm Hg High 25-40 [facility] Comment on above: Performed By: #### 4 8717 #### LAB [address] [address] Moody Martinez M.D. [id number] RESP RATE RAD 14 [facility] Comment on above: Performed By: #### 4 8717 #### LAB [address] [address] Moody Martinez M.D. [id number] SPECIMEN SOURCE RADIANCE Not specified [facility] Comment on above: Performed By: #### 4 8717 ####[facility] [address] [address] Moody Martinez M.D. [id number] BASE EXCESS, VENOUS -5.9 Low -2.0-2.0 [facility] Comment on above: Performed By: #### 4 8717 ####[facility] [address] [id number] Moody Martinez M.D. [id number] HCO3 (Bld) [Moles/Vol] 20.5 mmol/L Low 24.0-28.0 [facility] Comment on above: Performed By: #### 4 8717 ####[facility] [address] [address] Moody Martinez M.D. [id number] Hematocrit (Bld) [Volume fraction] 42.0 % Normal 41.0-53.0 [facility] Comment on above: Performed By: #### 4 8717 ####[facility] [address] [address] Moody Martinez M.D. [id number] Hemoglobin (Bld) [Mass/Vol] 13.7 g/dL Normal 13.5-17.5 [facility] Comment on above: Performed By: #### 4 8717 ####[facility] [address] [address] Moody Martinez M.D. [id number] LITER FLOW 2 Normal [facility] Comment on above: Performed By: #### 4 8717 ####[facility] [address] [address] Moody Martinez M.D. [id number] Oxygen saturation in Blood 50.9 % Normal 40.0-70.0 [facility] Comment on above: Performed By: #### 4 8717 ####[facility] [address] [address] Moody Martinez M.D. [id number] PCO2 VENOUS 43.1 mm Hg Normal 41.0-51.0 [facility] Comment on above: Performed By: #### 4 8717 ####[facility] [address] [place], [place] [address] Moody Martinez M.D. [id number] PH VENOUS 7.29 Low 7.32-7.42 [facility] Comment on above: Performed By: #### 4 8717 #### LAB [address] [place], [place] [address] Moody Martinez M.D. [id number] PO2 VENOUS 30 mm Hg Normal 25-40 [facility] Comment on above: Performed By: #### 4 8717 #### LAB [address] [id number] Moody Martinez M.D. [id number] SPECIMEN SOURCE RADIANCE Not specified Normal [facility] Comment on above: Performed By: #### 4 8717 #### LAB [address] [address] Moody Martinez M.D. [id number] PROCALCITONINon 02-28-2025 PROCALCITONIN 0.18 ng/ml Normal <0.50 [facility] Comment on above: Order Comment: Resul ts <0.50 ng/ml represent a low risk of severe sepsis and/or septic shock. Performed By: #### 4 6932 #### LAB [address] [address] Moody Martinez M.D. [id number] REFLEX LACTIC ACID, PLASMAon 02-28-2025 LACTIC ACID, PLASMA 2.0 mmol/L Normal 0.6-2.0 [facility] Comment on above: Performed By: #### 4 4014 #### LAB [address] [address] Moody Martinez M.D. [id number] LACTIC ACID, PLASMA 3.5 mmol/L High 0.6-2.0 [facility] Comment on above: Performed By: #### L [id number] #### LAB [address] [id number] Moody Martinez M.D. [id number] RESPIRATORY PCR PANELon 02-01 RESPIRATORY PCR PANEL [...] SARS-COV-2 (BIOFIRE) Not Detected Normal Not Detected [facility] Comment on above: Performed By: #### L [id number] ####[facility] [address] [place] [address] Jose Cisse M.D. [id number] S.PNEUMONIAE URINE ANTIGENon 02-28-2025 S.PNEUMONIAE URINE ANTIGEN STREP PNEUMONIAE ANTIGEN, URINE Presumptive Negative for Pneumococcal pneumoniae A negative result does not rule out Streptococcus pneumoniae infection since the antigen present in the sample may be below the detection limit of the test. [facility] Comment on above: Performed By: #### 4 7222 #### LAB [address] [place], [place] [address] Moody Martinez M.D. [id number] SEDIMENTATION RATEon 025 SEDIMENTATION RATE, ERYTHROCYTE 16 mm/hr Normal 0-20 [facility] Comment on above: Performed By: #### 4 6477 #### LAB [address] [address] Moody Martinez M.D. [id number] TROPONIN X 2 (NOW AND REPEAT IN 2 HOURS)on 02-28-2025 TROPONIN T DELTA % NG/L 176 % Off scale high <2 0% of Baseline Troponin [facility] Comment on above: Performed By: #### 4 6608 #### LAB [address] [id number] Moody Martinez M.D. [id number] TROPONIN T DELTA CHANGE INTERPRETATION Probable acute injury or myocardial infarction. [facility] Comment on above: Performed By: #### 4 6608 #### LAB [address] [address] Moody Martinez M.D. [id number] TROPONIN T NG/L 207 ng/L Off scale high <=22 [facility] Comment on above: Performed By: #### 4 6608 #### LAB [address] [address] Moody Martinez M.D. [id number] BASELINE TROPONIN T NG/L 75 ng/L Off scale high <=22 [facility] Comment on above: Performed By: #### 4 4014 #### LAB [address] [address] Moody Martinez M.D. [id number] TROPONIN T INTERPRETATION Possible acute cardiac injury. Normal [facility] Comment on above: Performed By: #### 4 4014 #### LAB [address] [address] Moody Martinez M.D. [id number] TSH WITH REFLEX FREE T4on TSH Qn 0.61 m[IU]/L Normal 0.27-4.20 [facility] Comment on above: Performed By: #### 4 6612 #### LAB [address] [address] Moody Martinez M.D. [id number] URINALYSISon 02-28-2025 BACTERIA, URINE None Seen Normal None Seen [facility] Comment on above: Order Comment: Micro scopic examination is performed on all urinalysis samples and only positive findings are reported. The test for blood on the chemical analytic portion of urinalysis may also be positive due to hemoglobinuria and myoglobinuria and if red blood cells are present they are quantified by microscopic examination. Performed By: #### 4 6625 #### LAB [address] [address] Moody Martinez M.D. [id number] BILIRUBIN, URINE Negative Normal Negative [facility] Comment on above: Order Comment: Micro scopic examination is performed on all urinalysis samples and only positive findings are reported. The test for blood on the chemical analytic portion of urinalysis may also be positive due to hemoglobinuria and myoglobinuria and if red blood cells are present they are quantified by microscopic examination. Performed By: #### 4 6625 #### LAB [address] [id number] Moody Martinez M.D. [id number] BLOOD, URINE Negative Normal Negative [facility] Comment on above: Order Comment: Micro scopic examination is performed on all urinalysis samples and only positive findings are reported. The test for blood on the chemical analytic portion of urinalysis may also be positive due to hemoglobinuria and myoglobinuria and if red blood cells are present they are quantified by microscopic examination. Performed By: #### 4 6625 #### LAB [address] [address] Moody Martinez M.D. [id number] Clarity (U) Clear Normal Clear [facility] Comment on above: Order Comment: Micro scopic examination is performed on all urinalysis samples and only positive findings are reported. The test for blood on the chemical analytic portion of urinalysis may also be positive due to hemoglobinuria and myoglobinuria and if red blood cells are present they are quantified by microscopic examination. Performed By: #### 4 6625 #### LAB [address] [address] Moody Martinez M.D. [id number] Color (U) Yellow Normal Colorless, Yellow [facility] Comment on above: Order Comment: Micro scopic examination is performed on all urinalysis samples and only positive findings are reported. The test for blood on the chemical analytic portion of urinalysis may also be positive due to hemoglobinuria and myoglobinuria and if red blood cells are present they are quantified by microscopic examination. Performed By: #### 4 6625 #### LAB [address] [address] Moody Martinez M.D. [id number] Glucose Ql (U) >=500 Abnormal Negative [facility] Comment on above: Order Comment: Micro scopic examination is performed on all urinalysis samples and only positive findings are reported. The test for blood on the chemical analytic portion of urinalysis may also be positive due to hemoglobinuria and myoglobinuria and if red blood cells are present they are quantified by microscopic examination. Performed By: #### 4 6625 #### LAB [address] [address] Moody Martinez M.D. [id number] Hyaline casts LM Ql (Urine sed) 3-5 Abnormal 0-2 [facility] Comment on above: Order Comment: Micro scopic examination is performed on all urinalysis samples and only positive findings are reported. The test for blood on the chemical analytic portion of urinalysis may also be positive due to hemoglobinuria and myoglobinuria and if red blood cells are present they are quantified by microscopic examination. Performed By: #### 4 6625 #### LAB [address] [id number] Moody Martinez M.D. [id number] Ketones Ql (U) Trace Abnormal Negative [facility] Comment on above: Order Comment: Micro scopic examination is performed on all urinalysis samples and only positive findings are reported. The test for blood on the chemical analytic portion of urinalysis may also be positive due to hemoglobinuria and myoglobinuria and if red blood cells are present they are quantified by microscopic examination. Performed By: #### 4 6625 #### LAB [address] [address] oMody Martinez M.D. [id number] Leukocyte esterase Test strip Ql (U) Negative Normal Negative [facility] Comment on above: Order Comment: Micro scopic examination is performed on all urinalysis samples and only positive findings are reported. The test for blood on the chemical analytic portion of urinalysis may also be positive due to hemoglobinuria and myoglobinuria and if red blood cells are present they are quantified by microscopic examination. Performed By: #### 4 6625 #### LAB [address] [address] Moody Martinez M.D. [id number] MUCUS, URINE Rare Normal None Seen, Rare [facility] Comment on above: Order Comment: Micro scopic examination is performed on all urinalysis samples and only positive findings are reported. The test for blood on the chemical analytic portion of urinalysis may also be positive due to hemoglobinuria and myoglobinuria and if red blood cells are present they are quantified by microscopic examination. Performed By: #### 4 6625 #### LAB [address] [address] Moody Martinez M.D. [id number] NITRITE, URINE Negative Normal Negative [facility] Comment on above: Order Comment: Micro scopic examination is performed on all urinalysis samples and only positive findings are reported. The test for blood on the chemical analytic portion of urinalysis may also be positive due to hemoglobinuria and myoglobinuria and if red blood cells are present they are quantified by microscopic examination. Performed By: #### 4 6625 #### LAB [address] [address] Moody Martinez M.D. [id number] pH (U) 5.5 [pH] Normal 5.0-7.0 [facility] Comment on above: Order Comment: Micro scopic examination is performed on all urinalysis samples and only positive findings are reported. The test for blood on the chemical analytic portion of urinalysis may also be positive due to hemoglobinuria and myoglobinuria and if red blood cells are present they are quantified by microscopic examination. Performed By: #### 4 6625 #### LAB [address] [address] Moody Martinez M.D. [id number] PROTEIN, URINE Negative Normal Negative [facility] Comment on above: Order Comment: Micro scopic examination is performed on all urinalysis samples and only positive findings are reported. The test for blood on the chemical analytic portion of urinalysis may also be positive due to hemoglobinuria and myoglobinuria and if red blood cells are present they are quantified by microscopic examination. Performed By: #### 4 6625 #### LAB [address] [address] Moody Martinez M.D. [id number] RBC LM.HPF (Urine sed) [#/Area] 1 /[HPF] Normal 0-3 [facility] Comment on above: Order Comment: Micro scopic examination is performed on all urinalysis samples and only positive findings are reported. The test for blood on the chemical analytic portion of urinalysis may also be positive due to hemoglobinuria and myoglobinuria and if red blood cells are present they are quantified by microscopic examination. Performed By: #### 4 6625 #### LAB [address] [id number] Moody Martinez M.D. [id number] Specific gravity (U) [Rel density] 1.012 Normal 1.005-1.025 [facility] Comment on above: Order Comment: Micro scopic examination is performed on all urinalysis samples and only positive findings are reported. The test for blood on the chemical analytic portion of urinalysis may also be positive due to hemoglobinuria and myoglobinuria and if red blood cells are present they are quantified by microscopic examination. Performed By: #### 4 6625 #### LAB [address] [address] Moody Martinez M.D. [id number] UROBILINOGEN, URINE <2.0 Normal <2.0 [facility] Comment on above: Order Comment: Micro scopic examination is performed on all urinalysis samples and only positive findings are reported. The test for blood on the chemical analytic portion of urinalysis may also be positive due to hemoglobinuria and myoglobinuria and if red blood cells are present they are quantified by microscopic examination. Performed By: #### 4 6625 #### LAB [address] [address] Moody Martinez M.D. [id number] WBC LM.HPF (Urine sed) [#/Area] 1 /[HPF] Normal 0-5 [facility] Comment on above: Order Comment: Micro scopic examination is performed on all urinalysis samples and only positive findings are reported. The test for blood on the chemical analytic portion of urinalysis may also be positive due to hemoglobinuria and myoglobinuria and if red blood cells are present they are quantified by microscopic examination. Performed By: #### 4 6625 #### LAB [address] [address] Moody Martinez M.D. [id number] URINE AEROBIC CULTUREon - URINE AEROBIC CULTURE URINE CULTURE < 10,000 CFU/mL of normal urogenital microbiota Normal [facility] Comment on above: Performed By: #### 4 4053 ####[facility] [address] [place] [address] Jose Cisse M.D. [id number] XR CHEST PA/APon 02-28-2025 XR CHEST PA/AP [...] 28, 2025 4:00:36 AM EDT [facility] Comment on above: Order Comment: Injur y/Trauma [...] Reference Range Not established Performed By: #### 6 517, 7909, 50102 #### [facility] of [address], [address] [place] [address] Quality Assurance Tester: Jadon Velez MD ALBUMIN/CREATININE RATIO, RANDOM URINE [...] within a diagnostic category. Performed By: #### 6 517, 7909, 52815 #### [facility] [place] [address] Quality Assurance Tester: Jadon Velez MD Creatinine (U) [Mass/Vol] 57 mg/dL Normal 20-320 [facility] Comment on above: Performed By: #### 6 517, 7909, 29388 #### [facility] [place] [address] Quality Assurance Tester: Jadon Velez MD COMPREHENSIVE METABOLIC PANE [facility] 02-13-2025 Albumin [Mass/Vol] 4.3 g/dL Normal 3.6-5.1 [facility] Comment on above: Performed By: #### 8 66, 7600, 496, 42262, 69730 #### [facility] [place] [address] Quality Assurance Tester: Jadon Velez MD Albumin/Globulin [Mass ratio] 1.7 {ratio} Normal 1.0-2.5 [facility] Comment on above: Performed By: #### 8 66, 7600, 496, 56931, 52730 #### [facility] of [place] [address] Quality Assurance Tester: Jadon Velez MD ALP [Catalytic activity/Vol] 61 U/L Normal 35-144 [facility] Comment on above: Performed By: #### 8 66, 7600, 496, 34648, 43350 #### [facility] [place] [address] Quality Assurance Tester: Jadon Velez MD ALT [Catalytic activity/Vol] 12 U/L Normal 9-46 [facility] Comment on above: Performed By: #### 8 66, 7600, 496, 06636, 53272 #### [facility] of [place] [address] Quality Assurance Tester: Jadon Velez MD AST [Catalytic activity/Vol] 16 U/L Normal 10-35 [facility] Comment on above: Performed By: #### 8 66, 7600, 496, 73580, 22336 #### [facility] [place] [address] Quality Assurance Tester: Jadon Velez MD Bilirubin [Mass/Vol] 0.5 mg/dL Normal 0.2-1.2 [facility] Comment on above: Performed By: #### 8 66, 7600, 496, 29024, 90457 #### [facility] [place] [address] Quality Assurance Tester: Jadon Velez MD Calcium [Mass/Vol] 9.3 mg/dL Normal 8.6-10.3 [facility] Comment on above: Performed By: #### 8 66, 7600, 496, 70446, 75670 #### [facility] [place] [address] Quality Assurance Tester: Jadon Velez MD Chloride [Moles/Vol] 102 mmol/L Normal 98-110 [facility] Comment on above: Performed By: #### 8 66, 7600, 496, 83354, 56977 #### [facility] [place] [address] Quality Assurance Tester: Jadon Velez MD CO2 [Moles/Vol] 28 mmol/L Normal 20-32 [facility] Comment on above: Performed By: #### 8 66, 7600, 496, 92542, 27499 #### [facility] [place] [address] Quality Assurance Tester: Jadon Velez MD Creatinine [Mass/Vol] 1.76 mg/dL High 0.70-1.[address] [facility] Comment on above: Performed By: #### 8 66, 7600, 496, 59143, 07788 #### [facility] [place] [address] Quality Assurance Tester: Jadon Velez MD GFR/1.73 sq M.predicted among non-blacks MDRD (S/P/Bld) [Vol rate/Area] 38 mL/min/{1.73_m2} Low > OR = 60 [facility] Comment on above: Performed By: #### 8 66, 7600, 496, 77199, 38108 #### [facility] [place] [address] Quality Assurance Tester: Jadon Velez MD Globulin (S) [Mass/Vol] 2.6 g/dL Normal 1.9-3.7 [facility] Comment on above: Performed By: #### 8 66, 7600, 496, 31393, 18799 #### [facility] [place] [address] Quality Assurance Tester: Jadon Velez MD Glucose [Mass/Vol] 242 mg/dL High 65-99 [facility] Comment on above: Result Comment: Fasting reference interval For someone without known diabetes, a glucose value >125 mg/dL indicates that they may have diabetes and this should be confirmed with a follow-up test. Performed By: #### 8 66, 7600, 496, 66901, 43990 #### [facility] [place] [address] Quality Assurance Tester: Jadon Velez MD Potassium [Moles/Vol] 4.6 mmol/L Normal 3.5-5.[address] [facility] Comment on above: Performed By: #### 8 66, 7600, 496, 33403, 14955 #### [facility] [place] [address] Quality Assurance Tester: Jadon Velez MD Protein [Mass/Vol] 6.9 g/dL Normal 6.1-8.1 [facility] Comment on above: Performed By: #### 8 66, 7600, 496, 91997, 31990 #### [facility] [place] [address] Quality Assurance Tester: Jadon Velez MD Sodium [Moles/Vol] 140 mmol/L Normal 135-146 [facility] Comment on above: Performed By: #### 8 66, 7600, 496, 15904, 19566 #### [facility] [place] [address] Quality Assurance Tester: Jadon Velez MD Urea nitrogen [Mass/Vol] 38 mg/dL High 7-25 [facility] Comment on above: Performed By: #### 8 66, 7600, 496, 60497, 92424 #### [facility] [place] [address] Quality Assurance Tester: Jadon Velez MD Urea nitrogen/Creatinine [Mass ratio] 22 mg/mg Normal 6-22 [facility] Comment on above: Performed By: #### 8 66, 7600, 496, 92516, 90347 #### [facility] [place] [address] Quality Assurance Tester: Jadon Velez MD COMPREHENSIVE METABOLIC PANE L W/ANION GAPon 02-13-2025 Albumin [Mass/Vol] 4.3 g/dL Normal 3.6-5.1 [facility] Comment on above: Performed By: #### 9 2498 #### [facility] [place] [address] Quality Assurance Tester: Jadon Velez MD ALP [Catalytic activity/Vol] 60 U/L Normal 35-144 [facility] Comment on above: Performed By: #### 9 1578 #### [facility] [place] [address] Quality Assurance Tester: Jadon Velez MD ALT [Catalytic activity/Vol] 11 U/L Normal 9-46 [facility] Comment on above: Performed By: #### 9 2498 #### [facility] [place] [address] Quality Assurance Tester: Jadon Velez MD AST [Catalytic activity/Vol] 15 U/L Normal 10-35 [facility] Comment on above: Performed By: #### 9 2498 #### [facility] [place] [address] Quality Assurance Tester: Jadon Velez MD Bilirubin [Mass/Vol] 0.5 mg/dL Normal 0.2-1.2 [facility] Comment on above: Performed By: #### 9 2498 #### [facility] [place] [address] Quality Assurance Tester: Jadon Velez MD Calcium [Mass/Vol] 9.3 mg/dL Normal 8.6-10.3 [facility] Comment on above: Performed By: #### 9 2498 #### [facility] [place] [address] Quality Assurance Tester: Jadon Velez MD Chloride [Moles/Vol] 102 mmol/L Normal 98-110 [facility] Comment on above: Performed By: #### 9 2498 #### [facility] [place] [address] Quality Assurance Tester: Jadon Velez MD CO2 [Moles/Vol] 28 mmol/L Normal 20-32 [facility] Comment on above: Performed By: #### 9 2498 #### [facility] [place] [address] Quality Assurance Tester: Jadon Velez MD Creatinine [Mass/Vol] 1.80 mg/dL High 0.70-1.[address] [facility] Comment on above: Performed By: #### 9 2498 #### [facility] [place] [address] Quality Assurance Tester: Jadon Velez MD ELECTROLYTE BALANCE 10 mmol/L (calc) Normal 7-17 [facility] Comment on above: Performed By: #### 9 2498 #### [facility] [place] [address] Quality Assurance Tester: Jadon Velez MD GFR/1.73 sq M.predicted among non-blacks MDRD (S/P/Bld) [Vol rate/Area] 37 mL/min/{1.73_m2} Low > OR = 60 [facility] Comment on above: Performed By: #### 9 2498 #### [facility] [place] [address] Quality Assurance Tester: Jadon Velez MD Glucose [Mass/Vol] 241 mg/dL High 65-99 [facility] Comment on above: Result Comment: Fasting reference interval For someone without known diabetes, a glucose value >125 mg/dL indicates that they may have diabetes and this should be confirmed with a follow-up test. Performed By: #### 9 2498 #### [facility] [place] [address] Quality Assurance Tester: Jadon Velez MD Potassium [Moles/Vol] 4.7 mmol/L Normal 3.5-5.[address] [facility] [address] [facility] Comment on above: Performed By: #### 9 2498 #### [facility] [place] [address] Quality Assurance Tester: Jadon Velez MD Protein [Mass/Vol] 6.7 g/dL Normal 6.1-8.1 [facility] Comment on above: Performed By: #### 9 2498 #### [facility] [place] [address] Quality Assurance Tester: Jadon Velez MD Sodium [Moles/Vol] 140 mmol/L Normal 135-146 [facility] Comment on above: Performed By: #### 9 2498 #### [facility] [place] [address] Quality Assurance Tester: Jadon Velez MD Urea nitrogen [Mass/Vol] 38 mg/dL High 7-25 [facility] Comment on above: Performed By: #### 9 2498 #### [facility] [address], [address] [place] [address] Quality Assurance Tester: Jadon Velez MD Comprehensive metabolic 2000 panelon 02-13-2025 Albumin [Mass/Vol] 4.3 g/dL 3.6 - 5.1 g/dL [facility] Albumin/Globulin [Mass ratio] 1.7 {ratio} [facility] ALP [Catalytic activity/Vol] 61 U/L 35 - 144 U/L [facility] ALT [Catalytic activity/Vol] 12 U/L 9 - 46 U/L [facility] AST [Catalytic activity/Vol] 16 U/L 10 - 35 U/L [facility] Bilirubin [Mass/Vol] 0.5 mg/dL 0.2 - 1 .2 mg/dL [facility] Calcium [Mass/Vol] 9.3 mg/dL 8.6 - 10. 3 mg/dL [facility] Chloride [Moles/Vol] 102 mmol/L 98 - 11 0 mmol/L [facility] CO2 [Moles/Vol] 28 mmol/L 20 - 32 mmol/L [facility] Creatinine [Mass/Vol] 1.76 mg/dL High 0.70 - 1.22 mg/dL [facility] GFR/1.73 sq M.predicted among non-blacks MDRD (S/P/Bld) [Vol rate/Area] 38 mL/min/{1.73_m2} Low > OR = 60 mL/min/1.73m2 [facility] Globulin (S) [Mass/Vol] 2.6 g/dL [facility] Glucose [Mass/Vol] 242 mg/dL High 65 - 99 mg/dL [facility] Comment on above: Fasting reference interval For someone without known diabetes, a glucose value >125 mg/dL indicates that they may have diabetes and this should be confirmed with a follow-up test. Interpretation and review of laboratory results Abnormal [facility] Potassium [Moles/Vol] 4.6 mmol/L 3.5 - 5.3 mmol/L [facility] Protein [Mass/Vol] 6.9 g/dL 6.1 - 8.1 g/dL [facility] Sodium [Moles/Vol] 140 mmol/L 135 - 146 mmol/L [facility] Urea nitrogen [Mass/Vol] 38 mg/dL High 7 - 25 mg/d L [facility] Urea nitrogen/Creatinine [Mass ratio] 22 mg/mg [facility] HEMOGLOBIN A1con 02-13-2025 HbA1c (Bld) [Mass fraction] [...] of diabetes for children. Performed By: #### 8 66, 8950, 496, 93251, 09027 #### [facility] [address], [address] [place] [address] Quality Assurance Tester: Jadon Velez MD HbA1c (Bld) [Mass fraction]o n 02-13-2025 Interpretation and review of laboratory results Abnormal [facility] Hemoglobin A1con 02-13-2025 HbA1c (Bld) [Mass fraction] 7.4 % High NINF - 5.7 % [facility] Comment on above: For someone without known [...] Performed By: #### 8 66, 7600, 496, 81361, 04789 #### [facility] [address], [address] [place] [address] Quality Assurance Tester: Jadon Velez MD Cholesterol in HDL [Mass/Vol] 57 mg/dL Normal > OR = 40 [facility] Comment on above: Performed By: #### 8 66, 7600, 496, 24445, 46531 #### [facility] [place] [address] Quality Assurance Tester: Jadon Velez MD Cholesterol in LDL [Mass/Vol] [...] Ramon SS et al. ANA LAURA. 2013;310(19): 6398-7916 (http://education.CoverItLive.Arieso/faq/JHC042) Performed By: #### 8 66, 7600, 496, 43257, 70097 #### [facility] [place] [address] Quality Assurance Tester: Jadon Velez MD Cholesterol.total/Cholest santos in HDL [Mass ratio] 2.6 {ratio} Normal <5.0 [facility] Comment on above: Performed By: #### 8 66, 7600, 496, 54335, 39588 #### [facility] [place] [address] Quality Assurance Tester: Jadon Velez MD NON HDL CHOLESTEROL 91 mg/dL (calc) Normal <130 [facility] Comment on above: Result Comment: For patients with diabetes plus 1 major ASCVD risk factor, treating to a non-HDL-C goal of <100 mg/dL (LDL-C of <70 mg/dL) is considered a therapeutic option. Performed By: #### 8 66, 7600, 496, 68904, 18242 #### [facility] [place] [address] Quality Assurance Tester: Jadon Velez MD Triglyceride [Mass/Vol] 85 mg/dL Normal <150 [facility] Comment on above: Performed By: #### 8 66, 7600, 496, 56968, 78551 #### [facility] [address] [facility], [address] [place] [address] Quality Assurance Tester: Jadon Velez MD Lipid 1996 panelon Cholesterol [Mass/Vol] 148 mg/dL [facility] - 200 mg/dL [facility] Cholesterol in HDL [Mass/Vol] 57 mg/dL > OR = 40 [facility] Cholesterol in LDL [Mass/Vol] 74 mg/dL mg/dL (calc) [facility] Comment on above: Reference range: <10 0 [...] Ramon SORIA et al. ANA LAURA. 2013;310(19): 3992-3263 (http://education.CoverItLive.Arieso/faq/VNW754) Cholesterol non HDL [Mass/Vol] 91 mg/dL [facility] Comment on above: For patients with di abetes plus 1 major ASCVD risk factor, treating to a non-HDL-C goal of <100 mg/dL (LDL-C of <70 mg/dL) is considered a therapeutic option. Cholesterol.total/Cholest santos in HDL [Mass ratio] 2.6 {ratio} [facility] Triglyceride [Mass/Vol] 85 mg/dL [facility] - 150 mg/dL [facility] NOTEon 02-13-2025 NOTE Normal [facility] Comment on above: Result Comment: This urine was analyzed for the presence of WBC, RBC, bacteria, casts, and other formed elements. Only those elements seen were reported. Performed By: #### 9 2498 #### [facility] [address] [facility], [address] [place] [address] Quality Assurance Tester: Jadon Velez MD No Panel Informationon 02-13 [facility] T4, FREEon 02-13-2025 Free T4 [Mass/Vol] 1.4 ng/dL Normal 0.8-1.8 [facility] Comment on above: Performed By: #### 8 66, 7600, 496, 02034, 25873 #### [facility] [place] [address] Quality Assurance Tester: Jadon Velez MD TSH W/REFLEX TO FT4on 2024 TSH W/REFLEX TO FT4 0.36 mIU/L Low 0.40-4.50 [facility] Comment on above: Performed By: #### 8 66, 7600, 496, 66484, 37166 #### [facility] [place] [address] Quality Assurance Tester: Jadon Velez MD URINALYSIS REFLEXon 02-14-20 25 Appearance (U) CLEAR Normal CLEAR [facility] Comment on above: Performed By: #### 9 2498 #### [facility] [place] [address] Quality Assurance Tester: Jadon Velez MD BACTERIA NONE SEEN Normal NONE SEEN [facility] Comment on above: Performed By: #### 9 2498 #### [facility] [place] [address] Quality Assurance Tester: Jadon Velez MD Bilirubin Ql (U) Negative Normal NEGATIVE [facility] Comment on above: Performed By: #### 9 2498 #### [facility] [place] [address] Quality Assurance Tester: Jadon Velez MD Color (U) YELLOW Normal YELLOW [facility] Comment on above: Performed By: #### 9 5728 #### [facility] [place] [address] Quality Assurance Tester: Jadon Velez MD Glucose Ql (U) Negative Normal NEGATIVE [facility] Comment on above: Performed By: #### 9 9628 #### [facility] [place] [address] Quality Assurance Tester: Jadon Velez MD HYALINE CAST NONE SEEN Normal NONE SEEN [facility] Comment on above: Performed By: #### 9 5118 #### [facility] [place] [address] [place] [address] Quality Assurance Tester: Jadon Velez MD Ketones Ql (U) Negative Normal NEGATIVE [facility] Comment on above: Performed By: #### 9 2498 #### [facility] [place] [address] Quality Assurance Tester: Jadon Velez MD Leukocyte esterase Test strip Ql (U) TRACE Abnormal NEGATIVE [facility] Comment on above: Performed By: #### 9 2498 #### [facility] [place] [address] Quality Assurance Tester: Jadon Velez MD Nitrite Ql (U) Negative Normal NEGATIVE [facility] Comment on above: Performed By: #### 9 2498 #### [facility] [place] [address] Quality Assurance Tester: Jadon Velez MD OCCULT BLOOD Negative Normal NEGATIVE [facility] Comment on above: Performed By: #### 9 2498 #### [facility] [place] [address] Quality Assurance Tester: Jadon Velez MD pH (U) 6.0 [pH] Normal 5.0-8.0 [facility] Comment on above: Performed By: #### 9 2498 #### [facility] [place] [address] Quality Assurance Tester: Jadon Velez MD Protein Ql (U) 1+ Abnormal NEGATIVE [facility] Comment on above: Performed By: #### 9 2498 #### [facility] [place] [address] Quality Assurance Tester: Jadon Velez MD RBC NONE SEEN Normal < OR = 2 [facility] Comment on above: Performed By: #### 9 5089 #### [facility] [place] [address] Quality Assurance Tester: Jadon Velez MD Specific gravity (U) [Rel density] 1.011 Normal 1.001-1.035 [facility] Comment on above: Performed By: #### 9 8948 #### [facility] [address], [address] [place] [address] Quality Assurance Tester: Jadon Velez MD SQUAMOUS EPITHELIAL CELLS NONE SEEN Normal < OR = 5 [facility] Comment on above: Performed By: #### 9 2498 #### [facility] [address], [address] [place] [address] Quality Assurance Tester: Jadon Velez MD WBC 0-5 Normal < OR = 5 [facility] Comment on above: Performed By: #### 9 2498 #### [facility] [address], [address] [place] [address] Quality Assurance Tester: Jadon Velez MD Anion gap in Serum or Plasma Ordered By: Kerwin Tamayo on 02-06-2025 Anion gap [Moles/Vol] 12 mmol/L 5-15 [facility] BUN/creatinine ratioOrdered By: Kerwin Tamayo on 02-06-2025 Urea nitrogen/Creatinine [Mass ratio] 23.1 mg/mg High 10-20 [facility] Basic Metabolic Profile (BMP )on 02-06-2025 BUN/CRE 23.1 RATIO High 10-20 [facility] Comment on above: Performed By: #### L 500.2500, L100.0500 ####[facility] [address] [place], [address] Calcium [Mass/Vol] 9.1 mg/dL Normal 7.6-11.0 [facility] Comment on above: Performed By: #### L 500.2500, L100.0500 ####[facility] [address] [place], [address] Chloride [Moles/Vol] 103 mmol/L Normal 98-108 [facility] Comment on above: Performed By: #### L 500.2500, L100.0500 ####[facility] [address] [place], [address] CO2 [Moles/Vol] 23.7 mmol/L Normal 21.0-32.0 [facility] Comment on above: Performed By: #### L 500.2500, L100.0500 ####[facility] [address] [place], [address] Creatinine [Mass/Vol] 1.88 mg/dL High 0.70-1.20 [facility] Comment on above: Performed By: #### L 500.2500, L100.0500 ####[facility] [address] [place], [address] GAP 12 Normal 5-15 [facility] Comment on above: Performed By: #### L 500.2500, L100.0500 ####[facility] [address] [place], [address] GFR/1.73 sq M.predicted among non-blacks MDRD (S/P/Bld) [Vol rate/Area] 35 mL/min/{1.73_m2} Low >60 [facility] Comment on above: Result Comment: mL/m in/1.73m2 CKD-EPI Creatinine Equation (2020) Performed By: #### L 500.2500, L100.0500 ####[facility] [address] [place], [address] Glucose [Mass/Vol] 287 mg/dL High 70-99 [facility] Comment on above: Performed By: #### L 500.2500, L100.0500 ####[facility] [address] [place], [address] Potassium [Moles/Vol] 4.4 mmol/L Normal 3.3-5.1 [facility] Comment on above: Performed By: #### L 500.2500, L100.0500 ####[facility] [address] [place], [address] Sodium [Moles/Vol] 139 mmol/L Normal 133-145 [facility] Comment on above: Performed By: #### L 500.2500, L100.0500 ####[facility] [address] [place], [address] Urea nitrogen [Mass/Vol] 44 mg/dL High 4-19 [facility] Comment on above: Performed By: #### L 500.2500, L100.0500 ####[facility] [address] [place], [address] CBC-Complete Blood Cnt No Di ffon 02-06-2025 Erythrocyte distribution width (RBC) [Ratio] 13.0 % Normal 11.6-14.6 [facility] Comment on above: Performed By: #### L 500.2500, L100.0500 ####[facility] [address] [place], [address] Hematocrit (Bld) [Volume fraction] 33.8 % Low 40-54 [facility] Comment on above: Performed By: #### L 500.2500, L100.0500 ####[facility] [address] [place], [address] Hemoglobin (Bld) [Mass/Vol] 11.0 g/dL Low 13.0-16.5 [facility] Comment on above: Performed By: #### L 500.2500, L100.0500 ####[facility] [address] [place], [address] MCH (RBC) [Entitic mass] 31.0 pg Normal 27.0-32.0 [facility] Comment on above: Performed By: #### L 500.2500, L100.0500 ####[facility] [address] [place], [address] MCHC (RBC) [Mass/Vol] 32.5 g/dL Normal 32-36 [facility] Comment on above: Performed By: #### L 500.2500, L100.0500 ####[facility] [address] [place], [address] MCV (RBC) [Entitic vol] 95.2 fL High 80-94 [facility] Comment on above: Performed By: #### L 500.2500, L100.0500 ####[facility] [address] [place], [address] Platelet mean volume (Bld) [Entitic vol] 11.2 fL Normal 6.2-12.0 [facility] Comment on above: Performed By: #### L 500.2500, L100.0500 ####[facility] [address] [place], [address] Platelets (Bld) [#/Vol] 239 10*3/uL Normal 150-450 [facility] Comment on above: Performed By: #### L 500.2500, L100.0500 ####[facility] [address] [place], [address] RBC (Bld) [#/Vol] 3.55 10*6/uL Low 4.6-6.2 [facility] Comment on above: Performed By: #### L 500.2500, L100.0500 ####[facility] [address] [place], [address] RDW SD 45.3 fl High 35.1-43.9 [facility] Comment on above: Performed By: #### L 500.2500, L100.0500 ####[facility] [address] [place], [address] WBC (Bld) [#/Vol] 8.9 10*3/uL Normal 4.4-11.0 [facility] Comment on above: Performed By: #### L 500.2500, L100.0500 ####[facility] [address] [place], [address] Carbon dioxide, total [Moles /volume] in Central venous bloodOrdered By: Kerwin Tamayo on 02-06-2025 CO2 [Moles/Vol] 23.7 mmol/L 21.0-32.0 [facility] Chloride assayOrdered By: Daniela Tamayo on 02-06-2025 Chloride [Moles/Vol] 103 mmol/L 98-108 [facility] Erythrocyte distribution wid th (RBC) [Ratio]Ordered By: Kerwin Tamayo on 02-06-2025 Erythrocyte distribution width (RBC) [Entitic vol] 45.3 fL High 35.1-43.9 [facility] Erythrocyte distribution wid th ratioOrdered By: Kerwin Tamayo on 02-06-2025 Erythrocyte distribution width (RBC) [Ratio] 13.0 % 11.6-14.6 [facility] Erythrocyte distribution wid th standard deviationOrdered By: Kerwin Tamayo on 02-06-2025 Erythrocyte distribution width (RBC) [Ratio] 45.3 fl High 35.1-43.9 [facility] GFR/1.73 sq M.predicted park g non-blacks MDRD (S/P/Bld) [Vol rate/Area]Ordered By: Kerwin Tamayo on 02-06-2025 Estimated GFR (MDRD) Non-Af Amer 35 Low >60 [facility] Comment on above: mL/min/1.73m2 CKD-EP I Creatinine Equation (2020) Glomerular filtration rate ( GFR) estimation/1.73 sq m using serum, plasma, or whole bOrdered By: Kerwin Tamayo on 02-06-2025 GFR/1.73 sq M.predicted among non-blacks MDRD (S/P/Bld) [Vol rate/Area] 35 mL/min/{1.73_m2} Low >60 [facility] Comment on above: mL/min/1.73m2 CKD-EP I Creatinine Equation (2020) Hematocrit Auto (Bld) [Volum e fraction]Ordered By: Kerwin Tamayo on 02-06-2025 Hematocrit (Bld) [Volume fraction] 33.8 % Low 40-54 [facility] Hemoglobin measurementOrdere d By: Kerwin Tamayo on 02-06-2025 Hemoglobin (Bld) [Mass/Vol] 11.0 g/dL Low 13.0-16.5 [facility] MCV (mean corpuscular volume ) determinationOrdered By: Kerwin Tamayo on 02-06-2025 MCV (RBC) [Entitic vol] 95.2 fL High 80-94 [facility] Mean corpuscular hemoglobin (MCH) determinationOrdered By: Kerwin Tamayo on 02-06-2025 MCH (RBC) [Entitic mass] 31.0 pg 27.0-32.0 [facility] Mean corpuscular hemoglobin concentration (MCHC) determinationOrdered By: Kerwin Tamayo on 02-06-2025 MCHC (RBC) [Mass/Vol] 32.5 g/dL 32-36 [facility] Mean platelet volume determi nationOrdered By: Kerwin Tamayo on 02-06-2025 Platelet mean volume (Bld) [Entitic vol] 11.2 fL 6.2-12.0 [facility] Platelet countOrdered By: Daniela Tamayo on 02-06-2025 Platelets (Bld) [#/Vol] 239 10*3/uL 150-450 [facility] Potassium (Unsp spec) [Mass/ Vol]Ordered By: Kerwin Tamayo on 02-06-2025 Potassium [Moles/Vol] 4.4 mmol/L 3.3-5.1 [facility] Potassium measurement (mass/ volume)Ordered By: Kerwin Tamayo on 02-06-2025 Potassium (Unsp spec) [Mass/Vol] 4.4 mmol/L 3.3-5.1 [facility] RBC Auto (Bld) [#/Vol]Ordere d By: Kerwin Tamayo on 02-06-2025 RBC (Bld) [#/Vol] 3.55 10*6/uL Low 4.6-6.2 [facility] Serum creatinine measurement (mass/volume)Ordered By: Kerwin Tamayo on 02-06-2025 Creatinine [Mass/Vol] 1.88 mg/dL High 0.70-1.20 [facility] Serum glucose measurement (m ass/volume)Ordered By: Kerwin Tamayo on 02-06-2025 Glucose [Mass/Vol] 287 mg/dL High 70-99 [facility] Serum or plasma calcium nikkie urement (mass/volume)Ordered By: Kerwin Tamayo on 02-06-2025 Calcium [Mass/Vol] 9.1 mg/dL 7.6-11.0 [facility] Serum or plasma urea nitroge n measurement (mass/volume)Ordered By: Kerwin Tamayo on 02-06-2025 Urea nitrogen [Mass/Vol] 44 mg/dL High 4-19 [facility] Sodium levelOrdered By: Aaron Tamayo on 02-06-2025 Sodium [Moles/Vol] 139 mmol/L 133-145 [facility] White blood cell (WBC) count Ordered By: Kerwin Tamayo on 02-06-2025 WBC (Bld) [#/Vol] 8.9 10*3/uL 4.4-11.0 [facility] CBC W Auto Differential pane l (Bld)on 11-06-2024 Basophils (Bld) [#/Vol] 0.08 x10*3/uL Normal 0.00-0.10 [facility] Comment on above: Performed By: #### 5 7021-8 #### MAGGI PARNELL ([id number]) [facility] ([facility]) [address] [place] [address] Basophils/100 WBC (Bld) 0.8 % Normal 0.0-2.0 [facility] Comment on above: Performed By: #### 5 7021-8 #### MAGGI PARNELL ([id number]) [facility] ([facility]) [address] [place] [address] Eosinophils (Bld) [#/Vol] 0.42 x10*3/uL High 0.00-0. 40 [facility] Comment on above: Performed By: #### 5 7021-8 #### MAGGI PARNELL ([id number]) [facility] ([facility]) [address] [place] [address] Eosinophils/100 WBC (Bld) 4.4 % Normal 0.0-6.0 [facility] Comment on above: Performed By: #### 5 7021-8 #### MAGGI PARNELL ([id number]) [facility] ([facility]) [address] [place] [address] Erythrocyte distribution width (RBC) [Ratio] 14.5 % Normal 11.5-14.5 [facility] Comment on above: Performed By: #### 5 7021-8 #### MAGGI PARNELL ([id number]) [facility] ([facility]) [address] [place], [place] [id number] Hematocrit (Bld) [Volume fraction] 34.5 % Low 41.0-52.0 [facility] Comment on above: Performed By: #### 5 7021-8 #### MAGGI PARNELL ([id number]) [facility] ([facility]) [address] [place] [address] Hemoglobin (Bld) [Mass/Vol] 10.6 g/dL Low 13.5-17.5 [facility] Comment on above: Performed By: #### 5 7021-8 #### MAGGI PARNELL ([id number]) [facility] ([facility]) [address] [place] [address] Immature granulocytes (Bld) [#/Vol] 0.03 x10*3/uL Normal 0.00-0.50 [facility] Comment on above: Performed By: #### 5 7021-8 #### MAGGI PARNELL ([id number]) [facility] ([facility]) [address] [place] [address] Immature granulocytes/100 WBC (Bld) 0.3 % Normal 0.0-0.9 [facility] Comment on above: Result Comment: Arielle ture Granulocyte Count (IG) includes promyelocytes, myelocytes and metamyelocytes but does not include bands. Percent differential counts (%) should be interpreted in the context of the absolute cell counts (cells/UL). Performed By: #### 5 7021-8 #### MAGGI PARNELL ([id number]) [facility] ([facility]) [address] [place] [address] Lymphocytes (Bld) [#/Vol] 2.35 x10*3/uL Normal 0.80-3. 00 [facility] Comment on above: Performed By: #### 5 7021-8 #### MAGGI PARNELL ([id number]) [facility] ([facility]) [address] [place] [address] Lymphocytes/100 WBC (Bld) 24.5 % Normal 13.0-44.0 [facility] Comment on above: Performed By: #### 5 7021-8 #### MAGGI PARNELL ([id number]) [facility] ([facility]) [address] [place] [address] MCH (RBC) [Entitic mass] 30.3 pg Normal 26.0-34.0 [facility] Comment on above: Performed By: #### 5 7021-8 #### MAGGI PARNELL ([id number]) [facility] ([facility]) [address] [place] [address]35 MCHC (RBC) [Mass/Vol] 30.7 g/dL Low 32.0-36.0 [facility] Comment on above: Performed By: #### 5 7021-8 #### MAGGI PARNELL ([id number]) [facility] ([facility]) [address] [place] [address] MCV (RBC) [Entitic vol] 99 fL Normal 80-100 [facility] Comment on above: Performed By: #### 5 7021-8 #### MAGGI PARNELL ([id number]) [facility] ([facility]) [address] [place] [address]3042 Monocytes (Bld) [#/Vol] 0.82 x10*3/uL High 0.05-0.80 [facility] Comment on above: Performed By: #### 5 7021-8 #### MAGGI PARNELL ([id number]) [facility] ([facility]) [address] [place] [address] Monocytes/100 WBC (Bld) 8.6 % Normal 2.0-10.0 [facility] Comment on above: Performed By: #### 5 7021-8 #### MAGGI PARNELL ([id number]) [facility] ([facility]) [address] [place] [address] Neutrophils (Bld) [#/Vol] 5.89 x10*3/uL High 1.60-5. 50 [facility] Comment on above: Result Comment: Perc ent differential counts (%) should be interpreted in the context of the absolute cell counts (cells/uL). Performed By: #### 5 7021-8 #### MAGGI PARNELL ([id number]) [facility] ([facility]) [address] [place] [address] 44884 Neutrophils/100 WBC (Bld) 61.4 % Normal 40.0-80.0 [facility] Comment on above: Performed By: #### 5 7021-8 #### MAGGI PARNELL ([id number]) [facility] ([facility]) [address] [place] [address] 33725 Nucleated RBC/100 WBC (Bld) [Ratio] 0.0 /100 WBCs Normal 0.0-0.0 [facility] Comment on above: Performed By: #### 5 7021-8 #### MAGGI PARNELL ([id number]) [facility] ([facility]) [address] [place] [address] 66566 Platelets (Bld) [#/Vol] 229 x10*3/uL Normal 150-450 [facility] Comment on above: Performed By: #### 5 7021-8 #### MAGGI PARNELL ([id number]) [facility] ([facility]) [address] [place] [address] 30655 RBC (Bld) [#/Vol] 3.50 x10*6/uL Low 4.50-5.90 [facility] Comment on above: Performed By: #### 5 7021-8 #### MAGGI PARNELL ([id number]) [facility] ([facility]) [address] [place] [address] 86876 WBC (Bld) [#/Vol] 9.6 x10*3/uL Normal 4.4-11.3 [facility] Comment on above: Performed By: #### 5 7021-8 #### MAGGI PARNELL ([id number]) [facility] ([facility]) [address] [place] [address] Comprehensive metabolic 2000 panelon 11-06-2024 Albumin BCP dye [Mass/Vol] 3.7 g/dL Normal 3.4-5.0 [facility] Comment on above: Performed By: #### 1 4959-1 #### ALENA Paredes ([id number]) [facility] ([facility]) [id number] [place] [address] 19022 ALP [Catalytic activity/Vol] 68 U/L Normal 33-136 [facility] Comment on above: Performed By: #### 1 4959-1 #### ALENA Paredes ([id number]) [facility] ([facility]) [id number] [place] [address] 85471 ALT With P-5'-P [Catalytic activity/Vol] 19 U/L Normal 10-52 [facility] Comment on above: Result Comment: Twila ents treated with Sulfasalazine may generate falsely decreased results for ALT. Performed By: #### 1 4959-1 #### ALENA CORREA L ([id number]) [facility] ([facility]) [id number] [place] [address] 02759 Anion gap [Moles/Vol] 12 mmol/L Normal 10-20 [facility] Comment on above: Performed By: #### 1 4959-1 #### ALENA Paredes ([id number]) [facility] ([facility]) [address] [place] [address] 88588 AST With P-5'-P [Catalytic activity/Vol] 19 U/L Normal 9-39 [facility] Comment on above: Performed By: #### 1 4959-1 #### ALENA CORREA L ([id number]) [facility] ([facility]) [address] [place] [address] 84640 Bilirubin [Mass/Vol] 0.3 mg/dL Normal 0.0-1.2 [facility] Comment on above: Performed By: #### 1 4959-1 #### ALENA CORREA L ([id number]) [facility] ([facility]) [address] [place] [address] Calcium [Mass/Vol] 8.9 mg/dL Normal 8.6-10.3 [facility] Comment on above: Performed By: #### 1 4959-1 #### ALENA Paredes ([id number]) [facility] ([facility]) [address] [place] [address] Chloride [Moles/Vol] 108 mmol/L High 98-107 [facility] Comment on above: Performed By: #### 1 4959-1 #### ALENA CORREA L ([id number]) [facility] ([facility]) [address] [place] [address] CO2 [Moles/Vol] 23 mmol/L Normal 21-32 [facility] Comment on above: Performed By: #### 1 4959-1 #### ALENA Paredes ([id number]) [facility] ([facility]) [address] [place] [address] Creatinine [Mass/Vol] 2.37 mg/dL High 0.50-1.30 [facility] Comment on above: Performed By: #### 1 4959-1 #### ALENA CORREA L ([id number]) [facility] ([facility]) [address] [place] [address] Glomerular filtration rate/1.73 sq M.predicted 27 mL/min/1.73m*2 Low >60 [facility] Comment on above: Result Comment: Calc ulations of estimated GFR are performed using the 2020 CKD-EPI Study Refit equation without the race variable for the IDMS-Traceable creatinine methods. https://jasn.asnjournals.org/content/22/ASN.20 82135931 Performed By: #### 1 4959-1 #### ALENA Paredes ([id number]) [facility] ([facility]) [address] [place] [address] Glucose [Mass/Vol] 95 mg/dL Normal 74-99 [facility] Comment on above: Performed By: #### 1 4959-1 #### ALENA Paredes ([id number]) [facility] ([facility]) [address] [place] [address] 12002 Potassium [Moles/Vol] 4.9 mmol/L Normal 3.5-5.3 [facility] Comment on above: Performed By: #### 1 4959-1 #### ALENA Paredes ([id number]) [facility] ([facility]) [address] [place] [address] 56962 Protein [Mass/Vol] 6.4 g/dL Normal 6.4-8.2 [facility] Comment on above: Performed By: #### 1 4959-1 #### ALENA Paredes ([id number]) [facility] ([facility]) [address] [place] [address] 94401 Sodium [Moles/Vol] 138 mmol/L Normal 136-145 [facility] Comment on above: Performed By: #### 1 4959-1 #### ALENA Paredes ([id number]) [facility] ([facility]) [address] [place] [address] 61849 Urea nitrogen [Mass/Vol] 48 mg/dL High 6-23 [facility] Comment on above: Performed By: #### 1 4959-1 #### ALENA Paredes ([id number]) [facility] ([facility]) [address] [place] [address] 35620 HbA1c (Bld) [Mass fraction]o n 11-06-2024 Average glucose Estimated from glycated hemoglobin (Bld) [Mass/Vol] 220 mg/dL Normal Not Established [facility] Comment on above: Order Comment: Diagn osis of Elmrdvov-NigkxhXrj-Pkrwikgb: < or = 5.6%Increased risk for developing diabetes: 5.7-6.4%Diagnostic of diabetes: > or = 6.5% Performed By: #### 1 4959-1 #### ALENA Paredes ([id number]) [facility] ([facility]) [address] [place] [address] 62896 Hemoglobin A1c/Hemoglobin.to alcira 11-06-2024 HbA1c (Bld) [Mass fraction] 9.3 % High See comment [facility] Comment on above: Order Comment: Diagn osis of Dmovkegt-CljzhzYni-Okqmwcba: < or = 5.6%Increased risk for developing diabetes: 5.7-6.4%Diagnostic of diabetes: > or = 6.5% Performed By: #### 1 4959-1 #### ALENA Paredes ([id number]) [facility] ([facility]) [id number] [place], [place] [id number] Thyrotropinon 11-06-2024 TSH Qn 2.65 m[IU]/L Normal 0.44-3.98 [facility] Comment on above: Order Comment: TSH t esting is performed using different testing methodology at [facility] than at [facility]. Direct result comparisons should only be made within the same method. Performed By: #### 1 4959-1 #### ALENA Paredes ([id number]) [facility] ([facility]) [address] [place], [place] [address] Thyroxine.freeon 11-06-2024 Free T4 [Mass/Vol] 0.84 ng/dL Normal 0.61-1.12 [facility] Comment on above: Order Comment: Thyro xine Free testing is performed using different testing methodology at [facility] than at [facility]. 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 Performed By: #### 4 6139 #### LAB [address] [place] [address] Moody Martinez M.D. 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 [id number] Anion gap [Moles/Vol] 17 mmol/L Normal 10-20 [facility] Comment on above: Order Comment: [facility] has implemented the eGFR calculation approach that does not have a coefficient for race that conforms to the NKF-ASN Task Force Recommendations. Performed By: #### 4 6124 #### LAB [address] [place], [place] [address] Moody Martinez M.D. [id number] Calcium [Mass/Vol] 8.5 mg/dL Normal 8.4-10.2 [facility] Comment on above: Order Comment: [facility] has implemented the eGFR calculation approach that does not have a coefficient for race that conforms to the NKF-ASN Task Force Recommendations. Performed By: #### 4 6124 #### LAB [address] [place] [address] Moody Martinez M.D. [id number] Chloride [Moles/Vol] 108 mmol/L Normal 98-108 [facility] Comment on above: Order Comment: [facility] has implemented the eGFR calculation approach that does not have a coefficient for race that conforms to the NKF-ASN Task Force Recommendations. Performed By: #### 4 6124 #### LAB [address] [place] [address] Moody Martinez M.D. [id number] Creatinine [Mass/Vol] 2.44 mg/dL High 0.80-1.30 [facility] Comment on above: Order Comment: [facility] has implemented the eGFR calculation approach that does not have a coefficient for race that conforms to the NKF-ASN Task Force Recommendations. Performed By: #### 4 6124 #### LAB [address] [place] [address] Moody Martinez M.D. [id number] EGFR 26 mL/min/1.73 m2 Low >=60 [facility] Comment on above: Order Comment: [facility] has implemented the eGFR calculation approach that does not have a coefficient for race that conforms to the NKF-ASN Task Force Recommendations. Result Comment: Albin mated GFR was calculated using the 2020 CKD-EPI creatinine equation. Performed By: #### 4 6124 #### LAB [address] [place] [address] Moody Martinez M.D. [id number] Glucose [Mass/Vol] 107 mg/dL High 65-99 [facility] Comment on above: Order Comment: [facility] has implemented the eGFR calculation approach that does not have a coefficient for race that conforms to the NKF-ASN Task Force Recommendations. Performed By: #### 4 6124 #### LAB [address] [place] [address] Moody Martinez M.D. [id number] HCO3 (Bld) [Moles/Vol] 18 mmol/L Low 21-32 [facility] Comment on above: Order Comment: [facility] has implemented the eGFR calculation approach that does not have a coefficient for race that conforms to the NKF-ASN Task Force Recommendations. Performed By: #### 4 6168 #### LAB [address] [place], [place] [address] Moody Martinez M.D. [id number] Potassium [Moles/Vol] 4.1 mmol/L Normal 3.5-5.1 [facility] Comment on above: Order Comment: [facility] has implemented the eGFR calculation approach that does not have a coefficient for race that conforms to the NKF-ASN Task Force Recommendations. Performed By: #### 4 6124 #### LAB [address] [place] [address] Moody Martinez M.D. [id number] Sodium [Moles/Vol] 139 mmol/L Normal 135-145 [facility] Comment on above: Order Comment: [facility] [employer] has implemented the eGFR calculation approach that does not have a coefficient for race that conforms to the NKF-ASN Task Force Recommendations. Performed By: #### 4 6112 #### LAB [address] [place] [address] Moody Martinez M.D. [id number] Urea nitrogen [Mass/Vol] 85 mg/dL High 8-25 [facility] Comment on above: Order Comment: [facility] [employer] has implemented the eGFR calculation approach that does not have a coefficient for race that conforms to the NKF-ASN Task Force Recommendations. Performed By: #### 4 6189 ####[facility] LAB [address] [place] [address] Moody Martinez M.D. [id number] Urea nitrogen/Creatinine [Mass ratio] 34.8 mg/mg High 10.0-20.0 [facility] Comment on above: Order Comment: [facility] [employer] has implemented the eGFR calculation approach that does not have a coefficient for race that conforms to the NKF-ASN Task Force Recommendations. Performed By: #### 4 6186 #### LAB [address] [place], [place] [address] Moody Martinez M.D. [id number] BETA-HYDROXYBUTYRATEon 10-28 BETA-HYDROXYBUTYRATE 0.1 mmol/L Normal 0.0-0.3 [facility] Comment on above: Performed By: #### 4 5139 #### LAB [address] [place], [place] [address] Moody Martinez M.D. [id number] BETA-HYDROXYBUTYRATE < Normal 0.0-0.3 [facility] Comment on above: Performed By: #### 4 5139 #### LAB [address] [place], [place] [address] Moody Martinez M.D. [id number] Basic metabolic 2000 panelon 10-28-2024 Anion gap [Moles/Vol] 16 mmol/L 10 - 2 0 mmol/L [facility] Calcium [Mass/Vol] 8.5 mg/dL 8.4 - 10. 2 mg/dL [facility] Chloride [Moles/Vol] 108 mmol/L 98 - 10 8 mmol/L [facility] Creatinine [Mass/Vol] 2.31 mg/dL High 0.80 - 1.30 mg/dL [facility] GFR/1.73 sq M.predicted CKD-EPI (S/P/Bld) [Vol rate/Area] 28 Low - PINF [facility] Comment on above: Estimated GFR was ca lculated using the 2020 CKD-EPI creatinine equation. Glucose [Mass/Vol] 95 mg/dL 65 - 99 mg/dL [facility] HCO3 [Moles/Vol] 19 mmol/L Low 21 - 32 mmol/L [facility] Potassium [Moles/Vol] 4.1 mmol/L 3.5 - 5.1 mmol/L [facility] Sodium [Moles/Vol] 139 mmol/L 135 - 145 mmol/L [facility] Urea nitrogen [Mass/Vol] 82 mg/dL High 8 - 25 mg/d L [facility] Urea nitrogen/Creatinine [Mass ratio] 35.5 mg/mg High 10.0 - 20.0 [facility] has implemented the eGFR calculation approach that does not have a coefficient for race that conforms to the NKF-ASN Task Force Recommendations. [facility] Anion gap [Moles/Vol] 17 mmol/L 10 - 2 0 mmol/L [facility] Calcium [Mass/Vol] 8.5 mg/dL 8.4 - 10. 2 mg/dL [facility] Chloride [Moles/Vol] 108 mmol/L 98 - 10 8 mmol/L [facility] Creatinine [Mass/Vol] 2.44 mg/dL High 0.80 - 1.30 mg/dL [facility] GFR/1.73 sq M.predicted CKD-EPI (S/P/Bld) [Vol rate/Area] 26 Low - PINF [facility] Comment on above: Estimated GFR was ca lculated using the 2020 CKD-EPI creatinine equation. Glucose [Mass/Vol] 107 mg/dL High 65 - 99 mg/dL [facility] HCO3 [Moles/Vol] 18 mmol/L Low 21 - 32 mmol/L [facility] Potassium [Moles/Vol] 4.1 mmol/L 3.5 - 5.1 mmol/L [facility] Sodium [Moles/Vol] 139 mmol/L 135 - 145 mmol/L [facility] Urea nitrogen [Mass/Vol] 85 mg/dL High 8 - 25 mg/d L [facility] Urea nitrogen/Creatinine [Mass ratio] 34.8 mg/mg High 10.0 - 20.0 [facility] has implemented the eGFR calculation approach that does not have a coefficient for race that conforms to the NKF-ASN Task Force Recommendations. [facility] Anion gap [Moles/Vol] 16 mmol/L 10 - 2 0 mmol/L [facility] Calcium [Mass/Vol] 8.3 mg/dL Low 8.4 - 10. 2 mg/dL [facility] Chloride [Moles/Vol] 103 mmol/L 98 - 10 8 mmol/L [facility] Creatinine [Mass/Vol] 2.6 mg/dL High 0.80 - 1.30 mg/dL [facility] GFR/1.73 sq M.predicted CKD-EPI (S/P/Bld) [Vol rate/Area] 24 Low - PINF [facility] Comment on above: Estimated GFR was ca lculated using the 2020 CKD-EPI creatinine equation. Glucose [Mass/Vol] 495 mg/dL Critically high 65 - 99 mg/d L [facility] HCO3 [Moles/Vol] 18 mmol/L Low 21 - 32 mmol/L [facility] Potassium [Moles/Vol] 5 mmol/L 3.5 - 5.1 mmol/L [facility] Sodium [Moles/Vol] 132 mmol/L Low 135 - 145 mmol/L [facility] Urea nitrogen [Mass/Vol] 93 mg/dL High 8 - 25 mg/d L [facility] Urea nitrogen/Creatinine [Mass ratio] 35.8 mg/mg High 10.0 - 20.0 [facility] has implemented the eGFR calculation approach that does not have a coefficient for race that conforms to the NKF-ASN Task Force Recommendations. [facility] Beta hydroxybutyrate [Moles/ Vol]on 10-28-2024 Interpretation and review of laboratory results Normal [facility] Interpretation and review of laboratory results Normal [facility] Interpretation and review of laboratory results Abnormal [facility] Beta-Hydroxybutyrateon 10-28 Beta hydroxybutyrate [Moles/Vol] 0.1 mmol/L 0.0 - 0.3 mmol/L [facility] Beta hydroxybutyrate [Moles/Vol] mmol/L 0.0 - 0.3 mmol/L [facility] Beta hydroxybutyrate [Moles/Vol] 0.4 mmol/L High 0.0 - 0.3 mmol/L [facility] CBC Auto Differentialon 10-02 Basophils (Bld) [#/Vol] 0.08 10*3/uL [facility] Basophils/100 WBC (Bld) 0.8 % hioHuc healthth Eosinophils (Bld) [#/Vol] 0.06 10*3/uL [facility] Eosinophils/100 WBC (Bld) 0.6 % [facility] Erythrocyte distribution width (RBC) [Entitic vol] 13.6 % 11.6 - 14.8 % [facility] Hematocrit (Bld) [Volume fraction] 29 % Low 41.0 - 53.0 % [facility] Hemoglobin (Bld) [Mass/Vol] 9.3 g/dL Low 13.5 - 17.5 g/dL [facility] Immature granulocytes (Bld) [#/Vol] 0.03 10*3/uL [facility] Immature granulocytes/100 WBC (Bld) 0.3 % [facility] Comment on above: The IG parameter is the percentage of metamyelocytes, myelocytes and promyelocytes. An immature granulocyte count (IG) of 1% or more suggests the possibility of infection, an IG count of 3% is very likely related to an infection. Interpretation and review of laboratory results Abnormal [facility] Lymphocytes (Bld) [#/Vol] 2.94 10*3/uL [facility] Lymphocytes/100 WBC (Bld) 28.7 % [facility] MCH (RBC) [Entitic mass] 30.3 pg 26. 0 - 34.0 pg [facility] MCHC (RBC) [Mass/Vol] 32.1 g/dL 31.0 - 37.0 g/dL [facility] MCV (RBC) [Entitic vol] 94.5 fL 80.0 - 100.0 fL [facility] Monocytes (Bld) [#/Vol] 1.02 10*3/uL High [facility] Monocytes/100 WBC (Bld) 10 % [facility] Neutrophils (Bld) [#/Vol] 6.12 10*3/uL [facility] Neutrophils/100 WBC (Bld) 59.6 % [facility] Nucleated RBC (Bld) [#/Vol] 0 10*3/uL [facility] Nucleated RBC/100 WBC (Bld) [Ratio] 0 % [facility] Platelet mean volume (Bld) [Entitic vol] 10.8 fL 9.4 - 12.4 fL [facility] Platelets (Bld) [#/Vol] 188 10*3/uL [facility] RBC (Bld) [#/Vol] 3.07 10*6/uL [facility] WBC (Bld) [#/Vol] 10.25 10*3/uL [facility] CBC WITH AUTO DIFFERENTIALon 10-28-2024 AUTO NRBC 0.0 % Normal [facility] Comment on above: Performed By: #### L [id number] #### LAB [address] [place] [address] Moody Martinez M.D. [id number] AUTO NRBC ABS COUNT 0.00 K/mcL Normal 0.00-0.00 [facility] Comment on above: Performed By: #### L [id number] #### LAB [address] [place] [address] Moody Martinez M.D. [id number] BASOPHILS ABSOLUTE COUNT 0.08 K/mcL Normal 0.00-0.30 [facility] Comment on above: Performed By: #### L [id number] #### LAB [address] [address] Moody Martinez M.D. [id number] Basophils/100 WBC (Bld) 0.8 % Normal [facility] Comment on above: Performed By: #### L [id number] #### LAB [address] [address] Moody Martinez M.D. [id number] Eosinophils (Bld) [#/Vol] 0.06 10*3/uL Normal 0.00-0.5 0 [facility] Comment on above: Performed By: #### L [id number] #### LAB [address] [address] Moody Martinez M.D. [id number] Eosinophils/100 WBC (Bld) 0.6 % Normal [facility] Comment on above: Performed By: #### L [id number] #### LAB [address] [address] Moody Martinez M.D. [id number] Erythrocyte distribution width (RBC) [Ratio] 13.6 % Normal 11.6-14.8 [facility] Comment on above: Performed By: #### L [id number] #### LAB [address] [address] Moody Martinez M.D. [id number] Hematocrit (Bld) [Volume fraction] 29.0 % Low 41.0-53.0 [facility] Comment on above: Performed By: #### L [id number] #### LAB [address] [address] Moody Martinez M.D. [id number] Hemoglobin (Bld) [Mass/Vol] 9.3 g/dL Low 13.5-17.5 [facility] Comment on above: Performed By: #### L [id number] #### LAB [address] [address] Moody Martinez M.D. [id number] IG ABSOLUTE 0.03 K/mcL Normal 0.00-0.30 [facility] Comment on above: Performed By: #### L [id number] #### LAB [address] [address] Moody Martinez M.D. [id number] IG PERCENT 0.30 % Normal [facility] Comment on above: Result Comment: The IG parameter is the percentage of metamyelocytes, myelocytes and promyelocytes. An immature granulocyte count (IG) of 1% or more suggests the possibility of infection, an IG count of 3% is very likely related to an infection. Performed By: #### L [id number] #### LAB [address] [address] Moody Martinez M.D. [id number] Lymphocytes (Bld) [#/Vol] 2.94 10*3/uL Normal 0.90-4.[address] [place] [address] Comment on above: Performed By: #### L [id number] #### LAB [address] [address] Moody Martinez M.D. [id number] Lymphocytes/100 WBC (Bld) 28.7 % Normal [facility] Comment on above: Performed By: #### L [id number] #### LAB [address] [address] Moody Martinez M.D. [id number] MCH (RBC) [Entitic mass] 30.3 pg Normal 26.0-34.0 [facility] Comment on above: Performed By: #### L [id number] #### LAB [address] [address] Moody Martinez M.D. [id number] MCV (RBC) [Entitic vol] 94.5 fL Normal 80.0-100.0 [facility] Comment on above: Performed By: #### L [id number] #### LAB [address] [address] Moody Martinez M.D. [id number] MEAN CORPUSCULAR HEMOGLOBIN CONC 32.1 g/dL Normal 31.0-37.0 [facility] Comment on above: Performed By: #### L [id number] #### LAB [address] [address] Moody Martinez M.D. [id number] Monocytes (Bld) [#/Vol] 1.02 10*3/uL High 0.30-0.90 [facility] Comment on above: Performed By: #### L [id number] #### LAB [address] [address] Moody Martinez M.D. [id number] Monocytes/100 WBC (Bld) 10.0 % Normal [facility] Comment on above: Performed By: #### L [id number] #### MH LAB [address] [address] Moody Martinez M.D. [id number] NEUTROPHILS ABSOLUTE COUNT 6.12 K/mcL Normal 1.70-7.00 [facility] Comment on above: Performed By: #### L [id number] #### LAB [address] [address] Moody Martinez M.D. [id number] Neutrophils/100 WBC (Bld) 59.6 % Normal [facility] Comment on above: Performed By: #### L [id number] #### LAB [address] [address] Moody Martinez M.D. [id number] Platelet mean volume (Bld) [Entitic vol] 10.8 fL Normal 9.4-12.4 [facility] Comment on above: Performed By: #### L [id number] #### LAB [address] [address] Moody Martinez M.D. [id number] Platelets (Bld) [#/Vol] 188 10*3/uL Normal 150-400 [facility] Comment on above: Performed By: #### L [id number] #### MH LAB [address] [address] Moody Martinez M.D. [id number] RBC (Bld) [#/Vol] 3.07 10*6/uL Low 4.50-5.90 [facility] Comment on above: Performed By: #### L [id number] #### MH LAB [address] [place], [place] [address] Moody Martinez M.D. [id number] WBC (Bld) [#/Vol] 10.25 10*3/uL Normal 4.50-11.00 [facility] Comment on above: Performed By: #### L [id number] #### MH LAB [address] [place], [place] [address] Moody Martinez M.D. [id number] CONSULTon 10-28-2024 CONSULT Attestation signed by Pedro West MD at 10/29/2024 9:27 AM Patient was evaluated by Keeley Patton CNP. Patient ID: Patient Name: Enoc Armando Admit Date: 10/27/2024 MR #: [id number] : 1945 Current location: [facility] Physicians: Ryley Jeter MD (Family); Dr Benitez [...] with chronic low back pain presented to [facility] on 10/27/2024 for an elective left [...] Diagnosed in 1994. Patient is managed by [facility] endocrinology for his type 1 diabetes. He is currently taking Admelog insulin: 10 units at mealtime Lantus insulin: 12 units at bedtime Current monitoring regimen: home blood tests - 3 times daily Complications of diabetes include: Retinopathy: Negative Nephropathy: Positive Peripheral Neuropathy: Positive Autonomic Neuropathy: Negative Allergies: Allergies Allergen Reactions Hlktdqq-Ylh-Xrt Reductase Inhibitors Muscle cramps Home Medications: Outpatient [...] MG table (more content not included)... Normal [facility] Glucose (Bld) [Mass/Vol]on 1 12-29-2023 Glucose [Mass/Vol] 321 mg/dL High 65 - 99 mg/dL [facility] Interpretation and review of laboratory results Abnormal [facility] Glucose [Mass/Vol] 288 mg/dL High 65 - 99 mg/dL [facility] Interpretation and review of laboratory results Abnormal [facility] Glucose [Mass/Vol] 130 mg/dL High 65 - 99 mg/dL [facility] Interpretation and review of laboratory results Abnormal [facility] Glucose [Mass/Vol] 55 mg/dL Critically low 65 - 99 mg/dL [facility] Interpretation and review of laboratory results Abnormal [facility] Critical result acted upon time of test. Test performed at bedside. [facility] Glucose [Mass/Vol] 85 mg/dL 65 - 99 mg/dL [facility] Interpretation and review of laboratory results Normal [facility] Glucose [Mass/Vol] 111 mg/dL High 65 - 99 mg/dL [facility] Interpretation and review of laboratory results Abnormal [facility] Glucose [Mass/Vol] 69 mg/dL 65 - 99 mg/dL [facility] Interpretation and review of laboratory results Normal [facility] Glucose [Mass/Vol] 76 mg/dL 65 - 99 mg/dL [facility] Interpretation and review of laboratory results Normal [facility] Glucose [Mass/Vol] 94 mg/dL 65 - 99 mg/dL [facility] Interpretation and review of laboratory results Normal [facility] Glucose [Mass/Vol] 115 mg/dL High 65 - 99 mg/dL [facility] Interpretation and review of laboratory results Abnormal [facility] Glucose [Mass/Vol] 168 mg/dL High 65 - 99 mg/dL [facility] Interpretation and review of laboratory results Abnormal [facility] Glucose [Mass/Vol] 215 mg/dL High 65 - 99 mg/dL [facility] Interpretation and review of laboratory results Abnormal [facility] Glucose [Mass/Vol] 336 mg/dL High 65 - 99 mg/dL [facility] Interpretation and review of laboratory results Abnormal [facility] Glucose [Mass/Vol] 443 mg/dL Critically high 65 - 99 mg/d L [facility] Interpretation and review of laboratory results Abnormal [facility] Critical result acted upon time of test. Test performed at bedside. [facility] HbA1c (Bld) [Mass fraction]o n 10-28-2024 Average glucose Estimated from glycated hemoglobin (Bld) [Mass/Vol] 237 mg/dL High 74 - 114 mg/dL [facility] Interpretation and review of laboratory results Abnormal [facility] Hemoglobin A1con 10-28-2024 HbA1c (Bld) [Mass fraction] 9.9 % High 4.2 - 5.6 % [facility] MAGNESIUM LEVELon 10-28-2024 Magnesium [Mass/Vol] 2.6 mg/dL High 1.6-2.4 [facility] Comment on above: Performed By: #### 4 [id number] #### LAB [address] [address] Moody Martinez M.D. [id number] Magnesium [Mass/Vol] 2.6 mg/dL High 1.6-2.4 [facility] Comment on above: Performed By: #### 4 [id number] #### LAB [address] [address] Moody Martinez M.D. [id number] Magnesium Levelon 10-28-2024 Magnesium [Mass/Vol] 2.6 mg/dL High 1.6 - 2 .4 mg/dL [facility] Magnesium [Mass/Vol] 2.6 mg/dL High 1.6 - 2 .4 mg/dL [facility] Magnesium [Mass/Vol] 2.6 mg/dL High 1.6 - 2 .4 mg/dL [facility] No Panel Informationon 10-28 Interpretation and review of laboratory results Abnormal [facility] Interpretation and review of laboratory results Abnormal [facility] Interpretation and review of laboratory results Abnormal [facility] PHOSPHORUSon 10-28-2024 Phosphate [Mass/Vol] 4.7 mg/dL High 2.3-3.7 [facility] Comment on above: Performed By: #### 4 [id number] ####MH LAB [address] [place], [place] [address] Moody Martinez M.D. [id number] POC GLUCOSE - [facility] 024 Glucose [Mass/Vol] 321 mg/dL High 65-99 [facility] Comment on above: Performed By: #### L [id number] #### MH LAB [address] [place], [place] [address] Moody Martinez M.D. [id number] Glucose [Mass/Vol] 288 mg/dL High [address] [place] [address] Comment on above: Performed By: #### 4 6932 ####MH LAB [address] [address] Moody Martinez M.D. [id number] Glucose [Mass/Vol] 130 mg/dL High [address] [place] [address] Comment on above: Performed By: #### 4 6932 ####MH LAB [address] [address] Moody Martinez M.D. [id number] Glucose [Mass/Vol] 55 mg/dL Off scale low [address] [place] [address] Comment on above: Order Comment: Criti christian result acted upon time of test. Test performed at bedside. Performed By: #### 4 6932 ####MH LAB [address] [address] Moody Martinez M.D. [id number] Glucose [Mass/Vol] 85 mg/dL Normal [address] [place] [address] Comment on above: Performed By: #### 4 6932 ####[facility] [address] [address] Moody Martinez M.D. [id number] Glucose [Mass/Vol] 111 mg/dL High [address] [place] [address] Comment on above: Performed By: #### L [id number] #### LAB [address] [address] Moody Martinez M.D. [id number] Glucose [Mass/Vol] 69 mg/dL Normal [address] [place] [address] Comment on above: Performed By: #### 4 [id number] #### LAB [address] [address] Moody Martinez M.D. [id number] Glucose [Mass/Vol] 76 mg/dL Normal [address] [place] [address] Comment on above: Performed By: #### 4 [id number] #### LAB [address] [address] Moody Martinez M.D. [id number] Glucose [Mass/Vol] 94 mg/dL Normal [address] [place] [address] Comment on above: Performed By: #### 4 6932 ####MH LAB [address] [address] Moody Martinez M.D. [id number] Glucose [Mass/Vol] 115 mg/dL High [address] [place] [address] Comment on above: Performed By: #### 4 6932 #### LAB [address] [address] Moody Martinez M.D. [id number] Glucose [Mass/Vol] 168 mg/dL High [address] [place] [address] Comment on above: Performed By: #### L [id number] #### LAB [address] [address] Moody Martinez M.D. [id number] Glucose [Mass/Vol] 215 mg/dL High [address] [place] [address] Comment on above: Performed By: #### 4 6932 #### LAB [address] [address] Moody Martinez M.D. [id number] Glucose [Mass/Vol] 336 mg/dL High [address] [place] [address] Comment on above: Performed By: #### 4 6932 #### LAB [address] [address] Moody Martinez M.D. [id number] Phosphoruson 10-28-2024 Phosphate [Mass/Vol] 4.7 mg/dL High 2.3 - 3 .7 mg/dL [facility] Phosphate [Mass/Vol] 4.4 mg/dL High 2.3 - 3 .7 mg/dL [facility] ABOR VERIFICATIONon ABO and Rh group Nom (Bld) Blood group A Rh(D) positive [facility] ABO and Rh group Nom (Bld) ABO/Rh Verification [facility] Comment on above: Result Comment: Twila ent's ABO/Rh is verified. ABOR Verificationon 024 ABO and Rh group Nom (Bld) Blood group A Rh(D) positive [facility] ABO and Rh group Nom (Bld) ABO/Rh Verification [facility] Comment on above: Patient's ABO/Rh is verified. [facility] AMYLASEon 10-27-2024 Amylase [Catalytic activity/Vol] 26.8 U/L Normal 13.0-53.0 [facility] Comment on above: Performed By: #### 4 [id number] #### LAB [address] [place], [place] [address] Moody Martinez M.D. [id number] APTTon 10-27-2024 aPTT Coag (Bld) [Time] 74 s High [facility] aPTT Coag (Bld) [Time] 74 s High 23-34 [facility] Comment on above: Order Comment: Thera peutic range for APTT's is 68 - 104 seconds Performed By: #### 4 5113 #### LAB [address] [place], [place] [address] Moody Martinez M.D. [id number] Amylaseon 10-27-2024 Amylase.pancreatic [Catalytic activity/Vol] 26.8 U/L 13.0 - 53.0 U/L [facility] BASIC METABOLIC PANELon - Anion gap [Moles/Vol] 16 mmol/L Normal 10-20 [facility] Comment on above: Order Comment: [facility] has implemented the eGFR calculation approach that does not have a coefficient for race that conforms to the NKF-ASN Task Force Recommendations. Performed By: #### 4 6932 #### LAB [address] [id number] Moody Martinez M.D. [id number] Calcium [Mass/Vol] 8.3 mg/dL Low 8.4-10.2 [facility] Comment on above: Order Comment: [facility] has implemented the eGFR calculation approach that does not have a coefficient for race that conforms to the NKF-ASN Task Force Recommendations. Performed By: #### 4 6932 #### LAB [address] [place], [place] [address] Moody Martinez M.D. [id number] Chloride [Moles/Vol] 103 mmol/L Normal 98-108 [facility] Comment on above: Order Comment: [facility] has implemented the eGFR calculation approach that does not have a coefficient for race that conforms to the NKF-ASN Task Force Recommendations. Performed By: #### 4 6932 #### LAB [address] [place], [place] [address] Moody Martinez M.D. [id number] Creatinine [Mass/Vol] 2.60 mg/dL High 0.80-1.30 [facility] Comment on above: Order Comment: [facility] has implemented the eGFR calculation approach that does not have a coefficient for race that conforms to the NKF-ASN Task Force Recommendations. Performed By: #### 4 6932 #### LAB [address] [address] Moody Martinez M.D. [id number] EGFR 24 mL/min/1.73 m2 Low >=60 [facility] Comment on above: Order Comment: [facility] [employer] has implemented the eGFR calculation approach that does not have a coefficient for race that conforms to the NKF-ASN Task Force Recommendations. Result Comment: Albin mated GFR was calculated using the 2020 CKD-EPI creatinine equation. Performed By: #### 4 6932 #### LAB [address] [place], [place] [address] Moody Martinez M.D. [id number] Glucose [Mass/Vol] 495 mg/dL Off scale high 65-99 [facility] Comment on above: Order Comment: [facility] [employer] has implemented the eGFR calculation approach that does not have a coefficient for race that conforms to the NKF-ASN Task Force Recommendations. Performed By: #### 4 6932 #### LAB [address] [place], [place] [address] Moody Martinez M.D. [id number] HCO3 (Bld) [Moles/Vol] 18 mmol/L Low 21-32 [facility] Comment on above: Order Comment: [facility] has implemented the eGFR calculation approach that does not have a coefficient for race that conforms to the NKF-ASN Task Force Recommendations. Performed By: #### 4 6971 #### LAB [address] [place], [place] [address] Moody Martinze M.D. [id number] Potassium [Moles/Vol] 5.0 mmol/L Normal 3.5-5.1 [facility] Comment on above: Order Comment: [facility] has implemented the eGFR calculation approach that does not have a coefficient for race that conforms to the NKF-ASN Task Force Recommendations. Performed By: #### 4 6932 #### LAB [address] [address] Moody Martinez M.D. [id number] Sodium [Moles/Vol] 132 mmol/L Low 135-145 [facility] Comment on above: Order Comment: [facility] has implemented the eGFR calculation approach that does not have a coefficient for race that conforms to the NKF-ASN Task Force Recommendations. Performed By: #### 4 6932 #### LAB [address] [address] Moody Martinez M.D. [id number] Urea nitrogen [Mass/Vol] 93 mg/dL High 8-25 [facility] Comment on above: Order Comment: [facility] [employer] has implemented the eGFR calculation approach that does not have a coefficient for race that conforms to the NKF-ASN Task Force Recommendations. Performed By: #### 4 6932 #### LAB [address] [place], [place] [address] Moody Martinez M.D. [id number] Urea nitrogen/Creatinine [Mass ratio] 35.8 mg/mg High 10.0-20.0 [facility] Comment on above: Order Comment: [facility] has implemented the eGFR calculation approach that does not have a coefficient for race that conforms to the NKF-ASN Task Force Recommendations. Performed By: #### 4 6932 #### LAB [address] [address] Moody Martinez M.D. [id number] BETA-HYDROXYBUTYRATEon 10-27 BETA-HYDROXYBUTYRATE 0.4 mmol/L High 0.0-0.3 [facility] Comment on above: Performed By: #### 4 5139 #### LAB [address] [address] Moody Martinez M.D. [id number] BETA-HYDROXYBUTYRATE 2.3 mmol/L High 0.0-0.3 [facility] Comment on above: Performed By: #### 4 5139 #### LAB [address] [address] Moody Martinez M.D. [id number] BETA-HYDROXYBUTYRATE 0.7 mmol/L High 0.0-0.3 [facility] Comment on above: Performed By: #### 4 6932 #### LAB [address] [address] Moody Martinez M.D. [id number] BILIRUBIN, DIRECTon 10-27-20 BILIRUBIN, DIRECT < Normal 0.0-0.4 [facility] Comment on above: Performed By: #### 4 5145 #### LAB [address] [address] Moody Martinez M.D. [id number] Beta hydroxybutyrate [Moles/ Vol]on 10-27-2024 Interpretation and review of laboratory results Abnormal [facility] Interpretation and review of laboratory results Abnormal [facility] Beta-Hydroxybutyrateon 10-27 Beta hydroxybutyrate [Moles/Vol] 2.3 mmol/L High 0.0 - 0.3 mmol/L [facility] Beta hydroxybutyrate [Moles/Vol] 0.7 mmol/L High 0.0 - 0.3 mmol/L [facility] Bilirubin.direct [Mass/Vol]o n 10-27-2024 Bilirubin.conjugated [Mass/Vol] mg/dL 0.0 - 0.4 mg/dL [facility] Interpretation and review of laboratory results Normal [facility] Blood type and Indirect anti body screen panel (Bld)on 10-27-2024 ABO and Rh group Nom (Bld) Blood group A Rh(D) positive [facility] Blood group antibody screen Ql Negative [facility] Specimen Expires 10/30/2024 23:59 EST [facility] CBC Auto Differentialon 10-02 Basophils (Bld) [#/Vol] 0.04 10*3/uL [facility] Basophils/100 WBC (Bld) 0.5 % [facility] Eosinophils (Bld) [#/Vol] 0 10*3/uL [facility] Eosinophils/100 WBC (Bld) 0 % [facility] Erythrocyte distribution width (RBC) [Entitic vol] 13.7 % 11.6 - 14.8 % [facility] Hematocrit (Bld) [Volume fraction] 34.8 % Low 41.0 - 53.0 % [facility] Hemoglobin (Bld) [Mass/Vol] 11.2 g/dL Low 13.5 - 17.5 g/dL [facility] Immature granulocytes (Bld) [#/Vol] 0.04 10*3/uL [facility] Immature granulocytes/100 WBC (Bld) 0.5 % [facility] Comment on above: The IG parameter is the percentage of metamyelocytes, myelocytes and promyelocytes. An immature granulocyte count (IG) of 1% or more suggests the possibility of infection, an IG count of 3% is very likely related to an infection. Interpretation and review of laboratory results Abnormal [facility] Lymphocytes (Bld) [#/Vol] 1.2 10*3/uL [facility] Lymphocytes/100 WBC (Bld) 13.8 % [facility] MCH (RBC) [Entitic mass] 30 pg 26. 0 - 34.0 pg [facility] MCHC (RBC) [Mass/Vol] 32.2 g/dL 31.0 - 37.0 g/dL [facility] MCV (RBC) [Entitic vol] 93.3 fL 80.0 - 100.0 fL [facility] Monocytes (Bld) [#/Vol] 0.11 10*3/uL Low [facility] Monocytes/100 WBC (Bld) 1.3 % [facility] Neutrophils (Bld) [#/Vol] 7.32 10*3/uL High [facility] Neutrophils/100 WBC (Bld) 83.9 % [facility] Nucleated RBC (Bld) [#/Vol] 0 10*3/uL [facility] Nucleated RBC/100 WBC (Bld) [Ratio] 0 % [facility] Platelet mean volume (Bld) [Entitic vol] 11.2 fL 9.4 - 12.4 fL [facility] Platelets (Bld) [#/Vol] 234 10*3/uL [facility] RBC (Bld) [#/Vol] 3.73 10*6/uL Low [facility] WBC (Bld) [#/Vol] 8.71 10*3/uL [facility] CBC WITH AUTO DIFFERENTIALon 10-27-2024 AUTO NRBC 0.0 % Normal [facility] Comment on above: Performed By: #### L [id number] #### LAB [address] [address] Moody Martinez M.D. [id number] AUTO NRBC ABS COUNT 0.00 K/mcL Normal 0.00-0.00 [facility] Comment on above: Performed By: #### L [id number] #### LAB [address] [place] [address] Moody Martinez M.D. [id number] BASOPHILS ABSOLUTE COUNT 0.04 K/mcL Normal 0.00-0.30 [facility] Comment on above: Performed By: #### L [id number] #### LAB [address] [place] [address] Moody Martinez M.D. [id number] Basophils/100 WBC (Bld) 0.5 % Normal [facility] Comment on above: Performed By: #### L [id number] #### LAB [address] [place] [address] Moody Martinez M.D. [id number] Eosinophils (Bld) [#/Vol] 0.00 10*3/uL Normal 0.00-0.5 0 [facility] Comment on above: Performed By: #### L [id number] #### LAB [address] [place] [address] Moody Martinez M.D. [id number] Eosinophils/100 WBC (Bld) 0.0 % [facility] Comment on above: Performed By: #### L [id number] #### LAB [address] [place] [address] Moody Martinez M.D. [id number] Erythrocyte distribution width (RBC) [Ratio] 13.7 % Normal 11.6-14.8 [facility] Comment on above: Performed By: #### L [id number] #### LAB [address] [place] [address] Moody Martinez M.D. [id number] Hematocrit (Bld) [Volume fraction] 34.8 % Low 41.0-53.0 [facility] Comment on above: Performed By: #### L [id number] #### LAB [address] [place] [address] Moody Martinez M.D. [id number] Hemoglobin (Bld) [Mass/Vol] 11.2 g/dL Low 13.5-17.5 [facility] Comment on above: Performed By: #### L [id number] #### LAB [address] [address] Moody Martinez M.D. [id number] IG ABSOLUTE 0.04 K/mcL Normal 0.00-0.30 [facility] Comment on above: Performed By: #### L [id number] #### LAB [address] [address] Moody Martinez M.D. [id number] IG PERCENT 0.50 % [facility] Comment on above: Result Comment: The IG parameter is the percentage of metamyelocytes, myelocytes and promyelocytes. An immature granulocyte count (IG) of 1% or more suggests the possibility of infection, an IG count of 3% is very likely related to an infection. Performed By: #### L [id number] #### LAB [address] [address] Moody Martinez M.D. [id number] Lymphocytes (Bld) [#/Vol] 1.20 10*3/uL Normal 0.90-4.0 0 [facility] Comment on above: Performed By: #### L [id number] #### LAB [address] [address] Moody Martinez M.D. [id number] Lymphocytes/100 WBC (Bld) 13.8 % Normal [facility] Comment on above: Performed By: #### L [id number] ####[facility] LAB [address] [address] Moody Martinez M.D. [id number] MCH (RBC) [Entitic mass] 30.0 pg Normal 26.0-34.0 [facility] Comment on above: Performed By: #### L [id number] #### LAB [address] [address] Moody Martinez M.D. [id number] MCV (RBC) [Entitic vol] 93.3 fL Normal 80.0-100.0 [facility] Comment on above: Performed By: #### L [id number] #### LAB [address] [address] Moody Martinez M.D. [id number] MEAN CORPUSCULAR HEMOGLOBIN CONC 32.2 g/dL Normal 31.0-37.0 [facility] Comment on above: Performed By: #### L [id number] #### LAB [address] [address] Moody Martinez M.D. [id number] Monocytes (Bld) [#/Vol] 0.11 10*3/uL Low 0.30-0.90 [facility] Comment on above: Performed By: #### L [id number] #### LAB [address] [address] Moody Martinez M.D. [id number] Monocytes/100 WBC (Bld) 1.3 % Normal [facility] Comment on above: Performed By: #### L [id number] #### LAB [address] [address] Moody Martinez M.D. [id number] NEUTROPHILS ABSOLUTE COUNT 7.32 K/mcL High 1.70-7.00 [facility] Comment on above: Performed By: #### L [id number] #### LAB [address] [address] Moody Martinez M.D. [id number] Neutrophils/100 WBC (Bld) 83.9 % Normal [facility] Comment on above: Performed By: #### L [id number] #### LAB [address] [address] Moody Martinez M.D. [id number] Platelet mean volume (Bld) [Entitic vol] 11.2 fL Normal 9.4-12.4 [facility] Comment on above: Performed By: #### L [id number] #### LAB [address] [address] Moody Martinez M.D. [id number] Platelets (Bld) [#/Vol] 234 10*3/uL Normal 150-400 [facility] Comment on above: Performed By: #### L [id number] #### LAB [address] [address] Moody Martinez M.D. [id number] RBC (Bld) [#/Vol] 3.73 10*6/uL Low 4.50-5.90 [facility] Comment on above: Performed By: #### L [id number] #### LAB [address] [address] Moody Martinez M.D. [id number] WBC (Bld) [#/Vol] 8.71 10*3/uL Normal 4.50-11.00 [facility] Comment on above: Performed By: #### L [id number] #### LAB [address] [address] Moody Martinez M.D. [id number] CITRATED TEG (CARDIAC) WITH HEPARINASE PANEL [facility] 10-27-2024 (CFF-FLEV) CITRATED FUNCTIONAL FIBRINOGEN -EST. FUNCTIONAL FIBRINOGEN LEVEL 381.4 mg/dL Normal 278.0-581.0 [facility] Comment on above: Performed By: #### L [id number] #### LAB [address] [address] Moody Martinez M.D. [id number] (CFF-MA) CITRATED FUNCTIONAL FIBRINOGEN - MA 20.9 mm Normal 15.0-32.0 [facility] Comment on above: Performed By: #### L [id number] #### LAB [address] [address] Moody Martinez M.D. [id number] (CK-ANGLE) CITRATED KAOLIN-ALPHA ANGLE 73.2 deg Normal 63.0-78.0 [facility] Comment on above: Performed By: #### L [id number] #### LAB [address] [address] Moody Martinez M.D. [id number] (CK-K) CITRATED KAOLIN-SPEED OF CLOT FORMATION 1.3 min Normal 0.8-2.1 [facility] Comment on above: Performed By: #### L [id number] #### LAB [address] [address] Moody Martinez M.D. [id number] (CK-MA) CITRATED KAOLIN-MAXIMUM CLOT STRENGTH 50.9 mm Low 52.0-69.0 [facility] Comment on above: Performed By: #### L [id number] #### LAB [address] [address] Moody Martinez M.D. [id number] (CK-R) CITRATED KAOLIN - REACTION TIME 16.4 min High 4.6-9.1 [facility] Comment on above: Performed By: #### L [id number] #### LAB [address] [address] Moody Martinez M.D. [id number] (CKH-R) CITRATED KAOLIN WITH HEPARINASE-REACTION TIME 7.6 min Normal 4.3-8.3 [facility] Comment on above: Performed By: #### L [id number] #### LAB [address] [address] Moody Martinez M.D. [id number] (DISTRIBUTION DESIGNER-MA) CITRATED RAPID TEG - MA 62.3 mm Normal 52.0-70.0 [facility] Comment on above: Performed By: #### L [id number] #### LAB [address] [address] Moody Martinez M.D. [id number] COMPREHENSIVE METABOLIC PANE Jame 10-27-2024 Albumin [Mass/Vol] 3.4 g/dL Normal 3.2-5.2 [facility] Comment on above: Order Comment: [facility] has implemented the eGFR calculation approach that does not have a coefficient for race that conforms to the NKF-ASN Task Force Recommendations. Performed By: #### 4 [id number] #### LAB [address] [address] Moody Martinez M.D. [id number] ALP [Catalytic activity/Vol] 86 U/L Normal 40-150 [facility] Comment on above: Order Comment: [facility] [employer] has implemented the eGFR calculation approach that does not have a coefficient for race that conforms to the NKF-ASN Task Force Recommendations. Performed By: #### 4 [id number] #### LAB [address] [address] Moody Martinez M.D. [id number] ALT [Catalytic activity/Vol] 13 U/L Normal 0-50 U/L [facility] Comment on above: Order Comment: [facility] [employer] has implemented the eGFR calculation approach that does not have a coefficient for race that conforms to the NKF-ASN Task Force Recommendations. Performed By: #### 4 [id number] #### LAB [address] [address] Moody Martinez M.D. [id number] Anion gap [Moles/Vol] 20 mmol/L Normal 10-20 [facility] Comment on above: Order Comment: [facility] [employer] has implemented the eGFR calculation approach that does not have a coefficient for race that conforms to the NKF-ASN Task Force Recommendations. Performed By: #### 4 6126 #### LAB [address] [address] Moody Martinez M.D. [id number] AST [Catalytic activity/Vol] 12 U/L Normal 0-50 U/L [facility] Comment on above: Order Comment: [facility] [employer] has implemented the eGFR calculation approach that does not have a coefficient for race that conforms to the NKF-ASN Task Force Recommendations. Performed By: #### 4 6126 #### LAB [address] [id number] Moody Martinez M.D. [id number] Bilirubin [Mass/Vol] 0.3 mg/dL Normal 0.0-1.3 [facility] Comment on above: Order Comment: [facility] has implemented the eGFR calculation approach that does not have a coefficient for race that conforms to the NKF-ASN Task Force Recommendations. Performed By: #### 4 6126 #### LAB [address] [address] Moody Martinez M.D. [id number] Calcium [Mass/Vol] 8.4 mg/dL Normal 8.4-10.2 [facility] Comment on above: Order Comment: [facility] has implemented the eGFR calculation approach that does not have a coefficient for race that conforms to the NKF-ASN Task Force Recommendations. Performed By: #### 4 6126 #### LAB [address] [address] Moody Martinez M.D. [id number] Chloride [Moles/Vol] 99 mmol/L Normal 98-108 [facility] Comment on above: Order Comment: [facility] [employer] has implemented the eGFR calculation approach that does not have a coefficient for race that conforms to the NKF-ASN Task Force Recommendations. Performed By: #### 4 6126 #### LAB [address] [address] Moody Martinez M.D. [id number] Creatinine [Mass/Vol] 2.55 mg/dL High 0.80-1.30 [facility] Comment on above: Order Comment: [facility] has implemented the eGFR calculation approach that does not have a coefficient for race that conforms to the NKF-ASN Task Force Recommendations. Performed By: #### 4 6126 #### LAB [address] [address] Moody Martinez M.D. [id number] EGFR 25 mL/min/1.73 m2 Low >=60 [facility] Comment on above: Order Comment: [facility] has implemented the eGFR calculation approach that does not have a coefficient for race that conforms to the NKF-ASN Task Force Recommendations. Result Comment: Albin mated GFR was calculated using the 2020 CKD-EPI creatinine equation. Performed By: #### 4 6126 #### LAB [address] [address] Moody Martinez M.D. [id number] Glucose [Mass/Vol] 564 mg/dL Off scale high 65-99 [facility] Comment on above: Order Comment: [facility] has implemented the eGFR calculation approach that does not have a coefficient for race that conforms to the NKF-ASN Task Force Recommendations. Performed By: #### 4 6126 #### LAB [address] [address] Moody Martinez M.D. [id number] HCO3 (Bld) [Moles/Vol] 15 mmol/L Low 21-32 [facility] Comment on above: Order Comment: [facility] [employer] has implemented the eGFR calculation approach that does not have a coefficient for race that conforms to the NKF-ASN Task Force Recommendations. Performed By: #### 4 6126 #### LAB [address] [address] Moody Martinez M.D. [id number] Potassium [Moles/Vol] 5.9 mmol/L High 3.5-5.1 [facility] Comment on above: Order Comment: [facility] has implemented the eGFR calculation approach that does not have a coefficient for race that conforms to the NKF-ASN Task Force Recommendations. Performed By: #### 4 6126 ####[facility] LAB [address] [address] Moody Martinez M.D. [id number] Protein [Mass/Vol] 5.8 g/dL Low 6.0-8.0 [facility] Comment on above: Order Comment: [facility] has implemented the eGFR calculation approach that does not have a coefficient for race that conforms to the NKF-ASN Task Force Recommendations. Performed By: #### 4 6126 #### LAB [address] [address] Moody Martinez M.D. [id number] Sodium [Moles/Vol] 128 mmol/L Low 135-145 [facility] Comment on above: Order Comment: [facility] has implemented the eGFR calculation approach that does not have a coefficient for race that conforms to the NKF-ASN Task Force Recommendations. Performed By: #### 4 6126 #### LAB [address] [address] Moody Martinez M.D. [id number] Urea nitrogen [Mass/Vol] 93 mg/dL High 8-25 [facility] Comment on above: Order Comment: [facility] has implemented the eGFR calculation approach that does not have a coefficient for race that conforms to the NKF-ASN Task Force Recommendations. Performed By: #### 4 6126 #### LAB [address] [address] Moody Martinez M.D. [id number] Urea nitrogen/Creatinine [Mass ratio] 36.5 mg/mg High 10.0-20.0 [facility] Comment on above: Order Comment: [facility] [employer] has implemented the eGFR calculation approach that does not have a coefficient for race that conforms to the NKF-ASN Task Force Recommendations. Performed By: #### 4 6126 #### LAB [address] [address] Moody Martinez M.D. [id number] Albumin [Mass/Vol] 3.5 g/dL Normal 3.2-5.2 [facility] Comment on above: Order Comment: [facility] has implemented the eGFR calculation approach that does not have a coefficient for race that conforms to the NKF-ASN Task Force Recommendations. Performed By: #### 4 6126 #### LAB [address] [address] Moody Martinez M.D. [id number] ALP [Catalytic activity/Vol] 92 U/L Normal 40-150 [facility] Comment on above: Order Comment: [facility] has implemented the eGFR calculation approach that does not have a coefficient for race that conforms to the NKF-ASN Task Force Recommendations. Performed By: #### 4 6126 #### LAB [address] [address] Moody Martinez M.D. [id number] ALT [Catalytic activity/Vol] 21 U/L Normal 0-50 U/L [facility] Comment on above: Order Comment: [facility] has implemented the eGFR calculation approach that does not have a coefficient for race that conforms to the NKF-ASN Task Force Recommendations. Performed By: #### 4 6126 #### LAB [address] [address] Moody Martinez M.D. [id number] Anion gap [Moles/Vol] 20 mmol/L Normal 10-20 [facility] Comment on above: Order Comment: [facility] has implemented the eGFR calculation approach that does not have a coefficient for race that conforms to the NKF-ASN Task Force Recommendations. Performed By: #### 4 6126 #### LAB [address] [address] Moody Martinez M.D. [id number] AST [Catalytic activity/Vol] 14 U/L Normal 0-50 U/L [facility] Comment on above: Order Comment: [facility] has implemented the eGFR calculation approach that does not have a coefficient for race that conforms to the NKF-ASN Task Force Recommendations. Performed By: #### 4 6126 #### LAB [address] [address] Moody Martinez M.D. [id number] Bilirubin [Mass/Vol] 0.3 mg/dL Normal 0.0-1.3 [facility] Comment on above: Order Comment: [facility] has implemented the eGFR calculation approach that does not have a coefficient for race that conforms to the NKF-ASN Task Force Recommendations. Performed By: #### 4 6126 #### LAB [address] [address] Moody Martinez M.D. [id number] Calcium [Mass/Vol] 8.7 mg/dL Normal 8.4-10.2 [facility] Comment on above: Order Comment: [facility] has implemented the eGFR calculation approach that does not have a coefficient for race that conforms to the NKF-ASN Task Force Recommendations. Performed By: #### 4 6126 #### LAB [address] [place], [place] [address] Moody Martinez M.D. [id number] Chloride [Moles/Vol] 99 mmol/L Normal 98-108 [facility] Comment on above: Order Comment: [facility] has implemented the eGFR calculation approach that does not have a coefficient for race that conforms to the NKF-ASN Task Force Recommendations. Performed By: #### 4 6126 #### LAB [address] [place], [place] [address] Moody Martinez M.D. [id number] Creatinine [Mass/Vol] 2.60 mg/dL High 0.80-1.30 [facility] Comment on above: Order Comment: [facility] has implemented the eGFR calculation approach that does not have a coefficient for race that conforms to the NKF-ASN Task Force Recommendations. Performed By: #### 4 6126 #### LAB [address] [place], [place] [address] Moody Martinez M.D. [id number] EGFR 24 mL/min/1.73 m2 Low >=60 [facility] Comment on above: Order Comment: [facility] has implemented the eGFR calculation approach that does not have a coefficient for race that conforms to the NKF-ASN Task Force Recommendations. Result Comment: Albin mated GFR was calculated using the 2020 CKD-EPI creatinine equation. Performed By: #### 4 6126 ####[facility] LAB [address] [place], [place] [address] Moody Martinez M.D. [id number] Glucose [Mass/Vol] 467 mg/dL Off scale high 65-99 [facility] Comment on above: Order Comment: [facility] has implemented the eGFR calculation approach that does not have a coefficient for race that conforms to the NKF-ASN Task Force Recommendations. Performed By: #### 4 6126 #### LAB [address] [address] Moody Martinez M.D. [id number] HCO3 (Bld) [Moles/Vol] 17 mmol/L Low 21-32 [facility] Comment on above: Order Comment: [facility] has implemented the eGFR calculation approach that does not have a coefficient for race that conforms to the NKF-ASN Task Force Recommendations. Performed By: #### 4 6126 #### LAB [address] [address] Moody Martinez M.D. [id number] Potassium [Moles/Vol] 6.3 mmol/L Off scale high 3.5-5.1 [facility] Comment on above: Order Comment: [facility] has implemented the eGFR calculation approach that does not have a coefficient for race that conforms to the NKF-ASN Task Force Recommendations. Performed By: #### 4 6126 #### LAB [address] [address] Moody Martinez M.D. [id number] Protein [Mass/Vol] 5.6 g/dL Low 6.0-8.0 [facility] Comment on above: Order Comment: [facility] has implemented the eGFR calculation approach that does not have a coefficient for race that conforms to the NKF-ASN Task Force Recommendations. Performed By: #### 4 6126 #### LAB [address] [address] Moody Martinez M.D. [id number] Sodium [Moles/Vol] 130 mmol/L Low 135-145 [facility] Comment on above: Order Comment: [facility] has implemented the eGFR calculation approach that does not have a coefficient for race that conforms to the NKF-ASN Task Force Recommendations. Performed By: #### 4 6126 #### LAB [address] [address] Moody Martinez M.D. [id number] Urea nitrogen [Mass/Vol] 92 mg/dL High 8-25 [facility] Comment on above: Order Comment: [facility] has implemented the eGFR calculation approach that does not have a coefficient for race that conforms to the NKF-ASN Task Force Recommendations. Performed By: #### 4 6126 #### LAB [address] [place], [place] [address] Moody Martinez M.D. [id number] Urea nitrogen/Creatinine [Mass ratio] 35.4 mg/mg High 10.0-20.0 [facility] Comment on above: Order Comment: [facility] has implemented the eGFR calculation approach that does not have a coefficient for race that conforms to the NKF-ASN Task Force Recommendations. Performed By: #### 4 6126 #### LAB [address] [place], [place] [address] Moody Martinez M.D. [id number] CORONARY ANGIOGRAPHY 10-27 CORONARY ANGIOGRAPHY This is a summary [...] significant gradient across the aortic valve. Normal [facility] CT CHEST WITHOUT CONTRASTon 10-27-2024 CT [...] the subcutaneous tissues of the chest wall. [employer] Workstation ID: [id number] Dictated by: KAHLIL VARGHESE on WedOct 27, 2024 1:25:27 PM EST Transcribed by: WARREN PRITCHARD on WedOct 27, 2024 1:31:49 PM EST Finalized by: KAHLIL VARGHESE on WedOct 27, 2024 3:01:00 PM EST Normal [facility] Comment on above: Order Comment: Injur [...] the subcutaneous tissues of the chest wall. [employer] Workstation ID: [id number] [facility] EXAMINATION: CT CHEST WITHOUT CONTRAST HISTORY: ORDERING [...] STRUCTURES: No aggressive bone lesions. Intact sternum. [employer] Kahlil Tyler, - 10/27/2024 EXAMINATION: CT CHEST WITHOUT CONTRAST [...] the subcutaneous tissues of the chest wall. [employer] Workstation ID: [id number] [facility] Radiology Study observation (narrative) [facility] Cardiac Catheterizationon Impression: Multivessel complex calcified obstructive [...] no significant gradient across the aortic valve. [employer] CV [facility] Citrated TEG (Cardiac) with HeparinaseOrdered By: Burton Zendejas on 10-27-2024 (CFF-FLEV) Cit. Func.Fib.Estimated Func.Fibrinogen Level 381.4 mg/dL 278.0 - 581.0 mg/dL [facility] Clot angle TEG (Bld) [Angle] 73.2 deg 63.0 - 78.0 deg [facility] Clot formation TEG (Bld) [Time] 1.3 min 0.8 - 2.1 min [facility] Clotting time after addition of heparinase TEG (Bld) 7.6 min 4.3 - 8.3 min [facility] Clotting time.intrinsic coagulation system activated Rotational TEG (Bld) 16.4 min High 4.6 - 9.1 min [facility] Interpretation and review of laboratory results Abnormal [facility] Maximum clot firmness TEG (Bld) [Length] 50.9 mm Low 52.0 - 69.0 mm [facility] Maximum clot firmness TEG (Bld) [Length] 20.9 mm 15.0 - 32.0 mm [facility] Maximum clot firmness.extrinsic coagulation system activated Rotational TEG (Bld) [Length] 62.3 mm 52.0 - 70.0 mm [facility] Comprehensive metabolic 2000 panelOrdered By: Ya Izaguirre on 10-27-2024 Albumin [Mass/Vol] 3.4 g/dL 3.2 - 5.2 g/dL [facility] ALP [Catalytic activity/Vol] 86 U/L 40 - 150 U/L [facility] ALT [Catalytic activity/Vol] 13 U/L 0-50 U/L [facility] Anion gap [Moles/Vol] 20 mmol/L 10 - 2 0 mmol/L [facility] AST [Catalytic activity/Vol] 12 U/L 0-50 U/L [facility] Bilirubin [Mass/Vol] 0.3 mg/dL 0.0 - 1 .3 mg/dL [facility] Calcium [Mass/Vol] 8.4 mg/dL 8.4 - 10. 2 mg/dL [facility] Chloride [Moles/Vol] 99 mmol/L 98 - 10 8 mmol/L [facility] Creatinine [Mass/Vol] 2.55 mg/dL High 0.80 - 1.30 mg/dL [facility] GFR/1.73 sq M.predicted CKD-EPI (S/P/Bld) [Vol rate/Area] 25 Low - PINF [facility] Comment on above: Estimated GFR was ca lculated using the 2020 CKD-EPI creatinine equation. Glucose [Mass/Vol] 564 mg/dL Critically high 65 - 99 mg/d L [facility] HCO3 [Moles/Vol] 15 mmol/L Low 21 - 32 mmol/L [facility] Potassium [Moles/Vol] 5.9 mmol/L High 3.5 - 5.1 mmol/L [facility] Protein [Mass/Vol] 5.8 g/dL Low 6.0 - 8.0 g/dL [facility] Sodium [Moles/Vol] 128 mmol/L Low 135 - 145 mmol/L [facility] Urea nitrogen [Mass/Vol] 93 mg/dL High 8 - 25 mg/d L [facility] Urea nitrogen/Creatinine [Mass ratio] 36.5 mg/mg High 10.0 - 20.0 [facility] has implemented the eGFR calculation approach that does not have a coefficient for race that conforms to the NKF-ASN Task Force Recommendations. [facility] Comprehensive metabolic 2000 panelOrdered By: Rosalia March on 10-27-2024 Albumin [Mass/Vol] 3.5 g/dL 3.2 - 5.2 g/dL [facility] ALP [Catalytic activity/Vol] 92 U/L 40 - 150 U/L [facility] ALT [Catalytic activity/Vol] 21 U/L 0-50 U/L [facility] Anion gap [Moles/Vol] 20 mmol/L 10 - 2 0 mmol/L [facility] AST [Catalytic activity/Vol] 14 U/L 0-50 U/L [facility] Bilirubin [Mass/Vol] 0.3 mg/dL 0.0 - 1 .3 mg/dL [facility] Calcium [Mass/Vol] 8.7 mg/dL 8.4 - 10. 2 mg/dL [facility] Chloride [Moles/Vol] 99 mmol/L 98 - 10 8 mmol/L [facility] Creatinine [Mass/Vol] 2.6 mg/dL High 0.80 - 1.30 mg/dL [facility] GFR/1.73 sq M.predicted CKD-EPI (S/P/Bld) [Vol rate/Area] 24 Low - PINF [facility] Comment on above: Estimated GFR was ca lculated using the 2020 CKD-EPI creatinine equation. Glucose [Mass/Vol] 467 mg/dL Critically high 65 - 99 mg/d L [facility] HCO3 [Moles/Vol] 17 mmol/L Low 21 - 32 mmol/L [facility] Interpretation and review of laboratory results Abnormal [facility] Potassium [Moles/Vol] 6.3 mmol/L Critically high 3.5 - 5.1 mmol/L [facility] Protein [Mass/Vol] 5.6 g/dL Low 6.0 - 8.0 g/dL [facility] Sodium [Moles/Vol] 130 mmol/L Low 135 - 145 mmol/L [facility] Urea nitrogen [Mass/Vol] 92 mg/dL High 8 - 25 mg/d L [facility] Urea nitrogen/Creatinine [Mass ratio] 35.4 mg/mg High 10.0 - 20.0 [facility] has implemented the eGFR calculation approach that does not have a coefficient for race that conforms to the NKF-ASN Task Force Recommendations. [facility] ECHOCARDIOGRAM COMPLETEon ECHOCARDIOGRAM COMPLETE Patient Info Name: ENOC ARMANDO Age: 78 years : 1945 Gender: Male Ht: 170 cm Wt: 66 kg BSA: 1.77 m2 HR: 63 bpm BP: 148 / 55 mmHg Heart Rhythm: Sinus Arrhythmia Technical Quality: Fair Exam Date: 10/27/2024 1:22 PM Patient Status: Outpatient Director Plans: Jyoti Perez RDCS Exam Type: ECHOCARDIOGRAM COMPLETE Study Info Indications - Abnormal electrocardiogram [ECG] [EKG] Referring Physician: MARIE Arriaga; [id number] BMI: 22.71 kg/m2 Summary 1. Normal LV [...] Factors Hypertension: Yes Dyslipidemia: Yes Myocardial Infarction (NV): No Congestive Heart Failure (CHF): Hx CHF [...] mmHg MV VTI 56 cm MV Decel [place] 850 cm/s2 MV PHT 90 ms MV [...] Average 7. (more content not included)... Normal [facility] Echo completeOrdered By: Fauzia Garay on 10-27-2024 Aortic valve area 3.10585 cm [facility] Work Phone: [phone] AV mean gradient 4 mmHg [facility] Work Phone: [phone] AV peak gradient 7.1824 mmHg [facility] Work Phone: [phone] 70.2889 % [facility] Work Phone: [phone] [facility] Work Phone: Echo completeon 10-27-2024 Patient Info Name: ENOC ARMANDO Age: 78 years : 1945 Gender: Male Ht: 170 cm Wt: 66 kg BSA: 1.77 m2 HR: 63 bpm BP: 148 / 55 mmHg Heart Rhythm: Sinus Arrhythmia Technical Quality: Fair Exam Date: 10/27/2024 1:22 PM Patient Status: Outpatient Director Plans: Jyoti Perez RDCS Exam Type: ECHOCARDIOGRAM COMPLETE Study Info Indications - Abnormal electrocardiogram [ECG] [EKG] Referring Physician: MARIE Arriaga; [id number] BMI: 22.71 kg/m2 Summary 1. Normal LV [...] Factors Hypertension: Yes Dyslipidemia: Yes Myocardial Infarction (NV): No Congestive Heart Failure (CHF): Hx CHF [...] Name Value Normal (more content not included)... Diogenes Villalta MD - 10/27/2024 Patient Info Name: ENOC ARMANDO Age: 78 years : 1945 Gender: Male Ht: 170 cm Wt: 66 kg BSA: 1.77 m2 HR: 63 bpm BP: 148 / 55 mmHg Heart Rhythm: Sinus Arrhythmia Technical Quality: Fair Exam Date: 10/27/2024 1:22 PM Patient Status: Outpatient Director Plans: Jyoti Perez [facility] Exam Type: ECHOCARDIOGRAM COMPLETE Study Info Indications - Abnormal electrocardiogram [ECG] [EKG] Referring Physician: MARIE Arriaga; [id number] BMI: 22.71 kg/m2 Summary 1. Normal LV [...] Factors Hypertension: Yes Dyslipidemia: Yes Myocardial Infarction (NV): No Congestive Heart Failure (CHF): Hx CHF [...] mmHg MV VTI 56 cm MV Decel [place] 850 cm/s2 MV PHT 90 ms MV [...] Velocity 6.3 cm/ (more content not included)... [facility] Glucose (d) [Mass/Vol]on 12-28-2023 Glucose [Mass/Vol] mg/dL Critically high 65 - 99 mg/d L [facility] Interpretation and review of laboratory results Abnormal [facility] Critical result acted upon time of test. Test performed at bedside. [facility] Glucose [Mass/Vol] mg/dL Critically high 65 - 99 mg/d L [facility] Interpretation and review of laboratory results Abnormal [facility] Critical result acted upon time of test. Test performed at bedside. [facility] Glucose [Mass/Vol] 369 mg/dL High 65 - 99 mg/dL [facility] Interpretation and review of laboratory results Abnormal [facility] Glucose [Mass/Vol] 381 mg/dL High 65 - 99 mg/dL [facility] Interpretation and review of laboratory results Abnormal [facility] Glucose [Mass/Vol] 385 mg/dL High 65 - 99 mg/dL [facility] Interpretation and review of laboratory results Abnormal [facility] Glucose [Mass/Vol] 498 mg/dL Critically high 65 - 99 mg/d L [facility] Interpretation and review of laboratory results Abnormal [facility] Critical result acted upon time of test. Test performed at bedside. [facility] Glucose [Mass/Vol] 279 mg/dL High 65 - 99 mg/dL [facility] Interpretation and review of laboratory results Abnormal [facility] HEMOGLOBIN A1Con 10-27-2024 Glucose [Mass/Vol] 237 mg/dL High 74-114 [facility] Comment on above: Performed By: #### 4 8202 ####[facility] [address] [place] [address] Moody Martinez M.D. [id number] HbA1c (Bld) [Mass fraction] 9.9 % High 4.2-5.6 [facility] Comment on above: Performed By: #### 4 8202 ####[facility] [address] [place] [address] Moody Martinez M.D. [id number] Glucose [Mass/Vol] 232 mg/dL High 74-114 [facility] Comment on above: Performed By: #### 4 8202 ####[facility] [address] [address] Moody Martinez M.D. [id number] HbA1c (Bld) [Mass fraction] 9.7 % High 4.2-5.6 [facility] Comment on above: Performed By: #### 4 8202 #### LAB [address] [address] Moody Martinez M.D. [id number] HbA1c (Bld) [Mass fraction]o n 10-27-2024 Average glucose Estimated from glycated hemoglobin (Bld) [Mass/Vol] 232 mg/dL High 74 - 114 mg/dL [facility] Interpretation and review of laboratory results Abnormal [facility] Hemoglobin A1con 10-27-2024 HbA1c (Bld) [Mass fraction] 9.7 % High 4.2 - 5.6 % [facility] INR Coag (PPP) [Relative concha e]on 10-27-2024 Interpretation and review of laboratory results Normal [facility] PT Coag (PPP) [Time] 14.3 s [facility] During the induction phase of oral anticoagulation, the INR may not reflect the anticoagulation status of the patient. Therapeutic ranges for INR's are: Most clinical situations: INR 2.0-3.0 Mechanical Prosthetic Valve: INR 2.5-3.5 Critical: INR >5.0 [facility] LACTIC ACID, PLASMAon 2023 LACTIC ACID, PLASMA 1.6 mmol/L Normal 0.6-2.0 [facility] Comment on above: Performed By: #### 4 6932 #### [facility] [address] [place], [place] [address] Moody Martinez M.D. [id number] LIPASEon 10-27-2024 Lipase [Catalytic activity/Vol] 56 U/L Normal 15-65 [facility] Comment on above: Performed By: #### 4 6086 #### LAB [address] [place], [place] [address] Moody Martinez M.D. [id number] Lactate [Moles/Vol]on 2023 Interpretation and review of laboratory results Normal [facility] Lactic Acid, Plasmaon 2023 Lactate [Moles/Vol] 1.6 mmol/L 0.6 - 2. 0 mmol/L [facility] Lipaseon 10-27-2024 Lipase [Catalytic activity/Vol] 56 U/L 15 - 65 U/L [facility] MAGNESIUM LEVELon 10-27-2024 Magnesium [Mass/Vol] 2.6 mg/dL High 1.6-2.4 [facility] Comment on above: Performed By: #### 4 6109 #### LAB [address] [place], [place] [address] Moody Martinez M.D. [id number] Magnesium [Mass/Vol] 2.5 mg/dL High 1.6-2.4 [facility] Comment on above: Performed By: #### 4 6109 #### LAB [address] [place] [address] Moody Martinez M.D. [id number] Magnesium Levelon 10-27-2024 Magnesium [Mass/Vol] 2.5 mg/dL High 1.6 - 2 .4 mg/dL [facility] No Panel InformationOrdered By: Ya Izaguirre on 10-27-2024 Interpretation and review of laboratory results Abnormal [facility] No Panel Informationon 10-27 Interpretation and review of laboratory results Normal [facility] PHOSPHORUSon 10-27-2024 Phosphate [Mass/Vol] 4.4 mg/dL High 2.3-3.7 [facility] Comment on above: Performed By: #### 4 6299 #### LAB [address] [place] [address] Moody Martinez M.D. [id number] Phosphate [Mass/Vol] 5.2 mg/dL High 2.3-3.7 [facility] Comment on above: Performed By: #### 4 4014 #### LAB [address] [place] [address] Moody Martinez M.D. [id number] POC ARTERIAL BLOOD GAS PANEL -formerly [facility] 10-27-2024 [id number] 19.6 mm Hg [facility] Comment on above: Performed By: #### 4 8716 ####[facility] [address] [place] [address] Moody Martinez M.D. [id number] BASE EXCESS, ARTERIAL -7.5 Low -2.0-2.0 [facility] Comment on above: Performed By: #### 4 8716 ####[facility] [address] [place] [address] Moody Martinez M.D. [id number] FIO2 21 Normal [facility] Comment on above: Performed By: #### 4 8716 ####[facility] [address] [place] [address] Moody Martinez M.D. [id number] HCO3 (Bld) [Moles/Vol] 17.5 mmol/L Low 22.0-26.0 [facility] Comment on above: Performed By: #### 4 8716 ####[facility] [address] [place] [address] Moody Martinez M.D. [id number] Hematocrit (Bld) [Volume fraction] 30.0 % Low 41.0-53.0 [facility] Comment on above: Performed By: #### 4 8716 ####[facility] [address] [place] [address] Moody Martinez M.D. [id number] Hemoglobin (Bld) [Mass/Vol] 9.8 g/dL Low 13.5-17.5 [facility] Comment on above: Performed By: #### 4 8716 ####[facility] [address] [place] [address] Moody Martinez M.D. [id number] Oxygen saturation in Blood 97.3 % Normal 92.0-99.0 [facility] Comment on above: Performed By: #### 4 8716 #### LAB [address] [place] [address] Moody Martinez M.D. [id number] PCO2 ARTERIAL 32.9 mm Hg Low 35.0-45.0 [facility] Comment on above: Performed By: #### 4 8716 ####[facility] [address] [place] [address] Moody Martinez M.D. [id number] PH ARTERIAL 7.33 Low 7.35-7.45 [facility] Comment on above: Performed By: #### 4 8716 #### LAB [address] [place] [address] Moody Martinez M.D. [id number] PO2 ARTERIAL 85 mm Hg Normal 75-85 [facility] Comment on above: Performed By: #### 4 8716 #### LAB [address] [place] [address] Moody Martinez M.D. [id number] SPECIMEN SOURCE RADIANCE Radial, left Normal [facility] Comment on above: Performed By: #### 4 8716 #### LAB [address] [place] [address] Moody Martinez M.D. [id number] POC Arterial Blood Gas Panel -Pulmon 10-27-2024 Alveolar-arterial oxygen Partial pressure difference 19.6 mm Hg [facility] Base excess Calc (Bld) [Moles/Vol] -7.5000 mmol/L Low -2.0 - 2.0 [facility] CO2 (Bld) [Partial pressure] 32.9 mm[Hg] Low [facility] Hematocrit (BldA) [Volume fraction] 30 % Low 41.0 - 53.0 % [facility] Inhaled oxygen concentration 21 % [facility] Interpretation and review of laboratory results Abnormal [facility] Oxygen (Bld) [Partial pressure] 85 mm[Hg] [facility] pH (Bld) 7.33 [pH] Low 7.35 - 7.45 [facility] Specimen source Nom (Unsp spec) Radial, left [facility] POC GLUCOSE - [facility] 10-27-2 024 Glucose [Mass/Vol] 443 mg/dL Off scale [address] Comment on above: Order Comment: Criti christian result acted upon time of test. Test performed at bedside. Performed By: #### 4 6927 #### LAB [address] [place] [address] Moody Martinez M.D. [id number] POC GLUCOSE > Off scale [address] Comment on above: Order Comment: Criti christian result acted upon time of test. Test performed at bedside. Performed By: #### 4 6913 ####[facility] [address] [place] [address] Moody Martinez M.D. [id number] POC GLUCOSE > Off scale [address] Comment on above: Order Comment: Criti christian result acted upon time of test. Test performed at bedside. Performed By: #### 4 3417 #### LAB [address] [place] [address] Moody Martinez M.D. [id number] POC GLUCOSE > Off scale [address] Comment on above: Order Comment: Criti christian result acted upon time of test. Test performed at bedside. Performed By: #### 4 6945 #### LAB [address] [place] [address] Moody Martinez M.D. [id number] Glucose [Mass/Vol] 369 mg/dL [address] Comment on above: Performed By: #### 4 6919 #### LAB [address] [place] [address] Moody Martinez M.D. [id number] Glucose [Mass/Vol] 381 mg/dL [address] Comment on above: Performed By: #### 4 6917 #### LAB [address] [place] [address] Moody Martinez M.D. [id number] Glucose [Mass/Vol] 385 mg/dL [address] Comment on above: Performed By: #### 4 6932 #### LAB [address] [place] [address] Moody Martinez M.D. [id number] Glucose [Mass/Vol] 498 mg/dL Off scale high 65-99 [facility] Comment on above: Order Comment: Criti christian result acted upon time of test. Test performed at bedside. Performed By: #### 4 6932 #### LAB [address] [place] [address] Moody Martinez M.D. [id number] Glucose [Mass/Vol] 279 mg/dL High 65-99 [facility] Comment on above: Performed By: #### L [id number] #### LAB [address] [place] [address] Moody Martinez M.D. [id number] POTASSIUM LEVELon 10-27-2024 Potassium [Moles/Vol] 3.4 mmol/L Low 3.5-5.1 [facility] Comment on above: Performed By: #### 4 6351 #### LAB [address] [place] [address] Moody Martinez M.D. [id number] PREALBUMINon 10-27-2024 Prealbumin [Mass/Vol] 15.9 mg/dL Low 20.0-40.0 [facility] Comment on above: Performed By: #### 4 4014 #### LAB [address] [place] [address] Moody Martinez M.D. [id number] PT/INRon 10-27-2024 INR Coag (PPP) [Relative time] 1.1 {INR} 0.8 - 1.1 [facility] INR Coag (PPP) [Relative time] 1.1 {INR} Normal 0.8-1.1 [facility] Comment on above: Order Comment: Janet good the induction phase of oral anticoagulation, the INR may not reflect the anticoagulation status of the patient. Therapeutic ranges for INR's are:Most clinical situations: INR 2.0-3.0Mechanical Prosthetic Valve: INR 2.5-3.5Critical: INR >5.0 Performed By: #### 4 6932 #### LAB [address] [place], [place] [address] Moody Martinez M.D. [id number] PT Coag (PPP) [Time] 14.3 s Normal 11.8-14.3 [facility] Comment on above: Order Comment: Janet good the induction phase of oral anticoagulation, the INR may not reflect the anticoagulation status of the patient. Therapeutic ranges for INR's are:Most clinical situations: INR 2.0-3.0Mechanical Prosthetic Valve: INR 2.5-3.5Critical: INR >5.0 Performed By: #### 4 6932 #### LAB [address] [place], [place] [address] Moody Martinez M.D. [id number] Phosphoruson 10-27-2024 Phosphate [Mass/Vol] 5.2 mg/dL High 2.3 - 3 .7 mg/dL [facility] Potassium Levelon 10-27-2024 Potassium [Moles/Vol] 3.4 mmol/L Low 3.5 - 5.1 mmol/L [facility] Potassium [Moles/Vol]on 10-02 Interpretation and review of laboratory results Abnormal [facility] Prealbuminon 10-27-2024 Prealbumin [Mass/Vol] 15.9 mg/dL Low 20.0 - 40.0 mg/dL [facility] Prealbumin [Mass/Vol]on 10-02 Interpretation and review of laboratory results Abnormal [facility] Segmental Doppler Lower Extr emity Arterialon 10-27-2024 Patient Info Name: ENOC ARMANDO Age: 78 years : 1945 Gender: Male Exam Date: 10/27/2024 9:50 AM Patient Status: Outpatient Slot Supervisor: Ya Jacob Referring Physician: ZOILA POLLARD; Indications I73.9 - Peripheral vascular disease, unspecified Procedure Description 53193 Limited bilateral noninvasive physiologic studies of upper [...] JO-ANN Nguyen DO on 10/27/2024 01:14 PM [facility] - 10/27/2024 Patient Info Name: ENOC ARMANDO Age: 78 years : 1945 Gender: Male Exam Date: 10/27/2024 9:50 AM Patient Status: Outpatient Slot Supervisor: Ya Jacob Yadira Referring Physician: ZIOLA POLLARD; Indications I73.9 - Peripheral vascular disease, unspecified Procedure Description 79608 Limited bilateral noninvasive physiologic studies of upper [...] JO-ANN Nguyen DO on 10/27/2024 01:14 PM [facility] T4, FREEon 10-27-2024 Free T4 [Mass/Vol] 1.3 ng/dL Normal 0.7-1.7 [facility] Comment on above: Performed By: #### 4 6567 #### LAB [address] [place] [address] Moody Martinez M.D. [id number] T4, Freeon 10-27-2024 Free T4 [Mass/Vol] 1.3 ng/dL 0.7 - 1.7 ng/dL [facility] TEG PLATELET MAPPING ([facility])on 10-27-2024 (AA-%AGGREGATION) AA PERCENT AGGREGATION 12.1 % Low 89.0-100.0 [facility] Comment on above: Performed By: #### L [id number] #### LAB [address] [place] [address] Moody Martinez M.D. [id number] (AA-%INHIBITION) AA PERCENT INHIBITION 87.9 % High 0.0-11.0 [facility] Comment on above: Performed By: #### L [id number] ####[facility] [address] [place] [address] Moody Martinez M.D. [id number] (AA-MA) AA MAXIMUM AMPLITUDE 14.7 mm Low 51.0-71.0 [facility] Comment on above: Performed By: #### L [id number] ####[facility] [address] [place] [address] Moody Martinez M.D. [id number] (ACTF-MA) ACTIVATOR F MAXIMUM AMPLITUDE 7.8 mm Normal 2.0-19.0 [facility] Comment on above: Performed By: #### L [id number] ####[facility] [address] [place] [address] Moody Martinez M.D. [id number] (ADP-%AGGREGATION) ADP PERCENT AGGREGATION 61.2 % Low 83.0-100.0 [facility] Comment on above: Performed By: #### L [id number] ####[facility] [address] [place] [id number] Moody Martinez M.D. [id number] (ADP-%INHIBITION) ADP PERCENT INHIBITION 38.8 % High 0.0-17.0 [facility] Comment on above: Performed By: #### L [id number] #### LAB [address] [place] [address] Moody Martinez M.D. [id number] (ADP-MA) ADP MAXIMUM AMPLITUDE 42.7 mm Low 45.0-69.0 [facility] Comment on above: Performed By: #### L [id number] #### LAB [address] [place] [address] Moody Martinez M.D. [id number] (HKH-MA) KAOLIN WITH HEPARINASE MAXIMUM AMPLITUDE 64.8 mm Normal 53.0-68.0 [facility] Comment on above: Performed By: #### L [id number] #### LAB [address] [place] [address] Moody Martinez M.D. [id number] TEG Platelet Mapping (Cardia c)on 10-27-2024 (AA-%Aggregation) AA Percent Aggregation 12.1 % Low 89.0 - 100.0 % [facility] (AA-%Inhibition) AA Percent Inhibition 87.9 % High 0.0 - 11.0 % [facility] (ADP-% Aggregation) ADP Percent Aggregation 61.2 % Low 83.0 - 100.0 % [facility] (ADP-%Inhibition) ADP PERCENT INHIBITION 38.8 % High 0.0 - 17.0 % [facility] Interpretation and review of laboratory results Abnormal [facility] Maximum amplitude AA induced Resonance TEG (Bld) [Length] 14.7 mm Low 51.0 - 71.0 mm [facility] Maximum amplitude activator F induced Resonance TEG (Bld) [Length] 7.8 mm 2.0 - 19.0 mm [facility] Maximum amplitude ADP induced Resonance TEG (Bld) [Length] 42.7 mm Low 45.0 - 69.0 mm [facility] Maximum amplitude kaolin induced after addition of heparinase Resonance TEG (Bld) [Length] 64.8 mm 53.0 - 68.0 mm [facility] TSHon 10-27-2024 TSH Qn 0.48 m[IU]/L Normal 0.27-4.20 [facility] Comment on above: Performed By: #### 4 6932 #### LAB [address] [place] [address] Moody Martinez M.D. 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 [id number] URINE AEROBIC CULTUREon 10-02 URINE AEROBIC CULTURE URINE CULTURE No Growth (<1,000 CFU/mL) Normal [facility] Comment on above: Order Comment: If PO SITIVE, send for sensitivities per cardiac surgeon Performed By: #### 4 4053 ####[facility] [address] [place] [address] Jose Cisse M.D. [id number] US DOPPLER CAROTIDon 024 US DOPPLER CAROTID Patient Info Name: ENOC ARMANDO Age: 78 years : 1945 Gender: Male Exam Date: 10/27/2024 10:32 AM Patient Status: Outpatient Slot Supervisor: Lori Fagan RDMS (AB), RVS Referring Physician: MARIE Arriaga; Indications Z01.810 - Encounter for preprocedural cardiovascular examination I65.23 - Occlusion and stenosis of bilateral carotid arteries Procedure Description 39693 Duplex examination using B-mode, color and spectral [...] Results c (more content not included)... Normal [facility] Comment on above: Order Comment: Dr. Sudha Parker to read US DOPPLER SEGMENTAL ARTERIA L LEGS BILATERALon 10-27-2024 US DOPPLER SEGMENTAL ARTERIAL LEGS BILATERAL Patient Info Name: ENOC ARMANDO Age: 78 years : 1945 Gender: Male Exam Date: 10/27/2024 9:50 AM Patient Status: Outpatient Slot Supervisor: Ya Jacob Referring Physician: ZOILA POLLARD; Indications I73.9 - Peripheral vascular disease, unspecified Procedure Description 18938 Limited bilateral noninvasive physiologic studies of upper [...] DO on 10/27/2024 01:14 PM [facility] US RADIAL ARTERY MAPPING KARIN ATERALon 10-27-2024 US RADIAL ARTERY MAPPING BILATERAL Patient Info Name: ENOC ARMANDO Age: 78 years : 1945 Gender: Male Exam Date: 10/27/2024 11:23 AM Patient Status: Outpatient Slot Supervisor: Lori Fagan RDMS (AB), RVS Referring Physician: MARIE Arriaga; Indications - possible radial artery harvest Z01.810 - Encounter for preprocedural cardiovascular examination Procedure Description 07470 Duplex scan of upper extremity arteries or [...] Kristy Parker MD on 10/27/2024 11:50 AM [facility] Radial Artery Mapping Karin bone 10-27-2024 Patient Info Name: ENOC ARMANDO Age: 78 years : 1945 Gender: Male Exam Date: 10/27/2024 11:23 AM Patient Status: Outpatient Slot Supervisor: Lori Fagan RDMS (AB), RVS Referring Physician: MARIE Arriaga; Indications - possible radial artery harvest Z01.810 - Encounter for preprocedural cardiovascular examination Procedure Description 79855 Duplex scan of upper extremity arteries or [...] on 10/27/2024 11:50 AM [facility]NAP[facility] CV Kristy Parker MD - 10/27/2024 Patient Info Name: ENOC ARMANDO Age: 78 years : 1945 Gender: Male Exam Date: 10/27/2024 11:23 AM Patient Status: Outpatient Slot Supervisor: Lori Fagan RDMS (AB), RVS Referring Physician: MARIE Arriaga; Indications - possible radial artery harvest Z01.810 - Encounter for preprocedural cardiovascular examination Procedure Description 48744 Duplex scan of upper extremity arteries or [...] Kristy Parker MD on 10/27/2024 11:50 AM [facility] SAPHENOUS VEIN MAPon 12-2 US SAPHENOUS VEIN MAP Patient Info Name: ENOC ARMANDO Age: 78 years : 1945 Gender: Male Exam Date: 10/27/2024 11:13 AM Patient Status: Outpatient Slot Supervisor: Lori Fagan RDMS (AB), RVS Referring Physician: MARIE Arriaga; Indications - GSV harvest Z01.810 - Encounter for preprocedural cardiovascular examination Procedure Description 66520 Duplex examination using B-mode, color and spectral [...] MD on 10/27/2024 11:57 AM [facility] Ultrasound Saphenous vein vivi georges 10-27-2024 Patient Info Name: ENOC ARMANDO Age: 78 years : 1945 Gender: Male Exam Date: 10/27/2024 11:13 AM Patient Status: Outpatient Slot Supervisor: Lori Fagan RDMS (AB), RVS Referring Physician: MARIE Arriaga; Indications - GSV harvest Z01.810 - Encounter for preprocedural cardiovascular examination Procedure Description 47377 Duplex examination using B-mode, color and spectral [...] Kristy Parker MD on 10/27/2024 11:57 AM [employer] CV Kristy Parker MD - 10/27/2024 Patient Info Name: ENOC ARMANDO Age: 78 years : 1945 Gender: Male Exam Date: 10/27/2024 11:13 AM Patient Status: Outpatient Slot Supervisor: Lori Fagan RDMS (AB), RVS Referring Physician: MARIE Arriaga; Indications - GSV harvest Z01.810 - Encounter for preprocedural cardiovascular examination Procedure Description 16864 Duplex examination using B-mode, color and spectral [...] Kristy Parker MD on 10/27/2024 11:57 AM [facility] Ultrasound doppler carotidon 10-27-2024 Patient Info Name: ENOC ARMADNO Age: 78 years : 1945 Gender: Male Exam Date: 10/27/2024 10:32 AM Patient Status: Outpatient Slot Supervisor: Lori Fagan RDMS (AB), RVS Referring Physician: MARIE Arriaga; Indications Z01.810 - Encounter for preprocedural cardiovascular examination I65.23 - Occlusion and stenosis of bilateral carotid arteries Procedure Description 81966 Duplex examination using B-mode, color and spectral [...] ----- (more content not included)... FUJI SYNAPSE CV Kristy Parker MD - 10/27/2024 Patient Info Name: ENOC ARMANDO Age: 78 years : 1945 Gender: Male Exam Date: 10/27/2024 10:32 AM Patient Status: Outpatient Slot Supervisor: Lori Fagan RDMS (AB), RVS Referring Physician: MARIE Arriaga; Indications Z01.810 - Encounter for preprocedural cardiovascular examination I65.23 - Occlusion and stenosis of bilateral carotid arteries Procedure Description 30116 Duplex examination using B-mode, color and spectral [...] Patient has a (more content not included)... [facility] Urinalysison 10-27-2024 Bacteria Auto Ql (U) Rare Abnormal None Se en /hpf [facility] Bilirubin Ql (U) Negative Negative [facility] Clarity Refractometry automated (U) Clear Clear [facility] Color (U) Colorless Colorless, Yellow [facility] Epithelial cells.squamous Auto (Urine sed) [#/Area] [facility] alth Glucose Auto test strip (U) [Mass/Vol] 150 mg/dL Abnormal Negative, >=1000 [facility] Hemoglobin Auto test strip Ql (U) Negative Negative [facility] Hyaline casts Auto (Urine sed) [#/Area] 0-2 [facility] Interpretation and review of laboratory results Abnormal [facility] Ketones (U) [Mass/Vol] Negative Negat frank mg/dL [facility] Leukocyte esterase Auto test strip Ql (U) Negative Negative [facility] Mucus Auto (Urine sed) [#/Area] Rare None Seen, Rare /lpf [facility] Nitrite Auto test strip Ql (U) Negative Negative [facility] pH (U) 5 [pH] 5.0 - 7.0 [facility] Protein (U) [Mass/Vol] Negative Negat frank mg/dL [facility] RBC Auto (Urine sed) [#/Area] 1 [facility] Specific gravity (U) [Rel density] 1.017 1.005 - 1.025 [facility] Urobilinogen (U) [Mass/Vol] mg/dL NINF - 2.0 mg/dL [facility] WBC Auto (Urine sed) [#/Area] 1 [facility] Microscopic examination is performed on all urinalysis samples and only positive findings are reported. The test for blood on the chemical analytic portion of urinalysis may also be positive due to hemoglobinuria and myoglobinuria and if red blood cells are present they are quantified by microscopic examination. [facility] XR CHEST AP/PA AND LATon XR CHEST [...] lower lung atelectasis. JAR/trn Workstation ID: [id number] Dictated by: KAHLIL VARGHESE on WedOct 27, 2024 1:12:55 PM EST Transcribed by: DASIA ENGLAND on WedOct 27, 2024 1:21:29 PM EST Finalized by: KAHLIL VARGHESE on WedOct 27, 2024 3:01:09 PM EST Normal [facility] Comment on above: Order Comment: Injur y/Trauma or Illness?:Illness/OtherHow long have you had these symptoms (acute/chronic)?:AcuteReason for exam?:pre opHistory of cancer?:.Surgeries, chemotherapy, or radiation?:cardiac catheterizationType of Exam?:InitialAdditional signs and symptoms?:. XR Chest PA and Lateral and AP lateral-decubituson 10-27-2024 Mild bilateral lower lung atelectasis. JAR/trn Workstation ID: [id number] [employer] EXAMINATION: XR CHEST AP/PA AND LAT [...] atelectasis. No pneumothorax or sizable pleural effusion. [employer] Kahlil Varghese, DO - 10/27/2024 EXAMINATION: XR CHEST AP/PA [...] lower lung atelectasis. JAR/trn Workstation ID: [id number] [facility] Radiology Study observation (narrative) [facility] XR Chest PA and Lateral and AP lateral-decubitusOrdered By: Kahlil Varghese on 10-27-2024 [facility] Work Phone: aPTT Coag (Bld) [Time]on Interpretation and review of laboratory results Abnormal [facility] Therapeutic range for APTT's is 68 - 104 seconds [facility] BASIC METABOLIC PANELon 10-01 Calcium [Mass/Vol] 8.9 mg/dL Normal 8.6-10.3 [facility] Comment on above: Order Comment: FASTI NG:UNKNOWN FASTING: UNKNOWN Performed By: #### 6 399, 46638 #### [facility] [address], [address] [place] [address] Quality Assurance Tester: Jadon Velez MD Chloride [Moles/Vol] 106 mmol/L Normal 98-110 [facility] Comment on above: Order Comment: FASTI NG:UNKNOWN FASTING: UNKNOWN Performed By: #### 6 399, 59934 #### [facility] [address], [address] [place] [address] Quality Assurance Tester: Jadon Velez MD CO2 [Moles/Vol] 22 mmol/L Normal 20-32 [facility] Comment on above: Order Comment: FASTI NG:UNKNOWN FASTING: UNKNOWN Performed By: #### 6 399, 84255 #### [facility] [address], [address] [place] [address] Quality Assurance Tester: Jadon Velez MD Creatinine [Mass/Vol] 2.36 mg/dL High 0.70-1.[address] [facility] [address] [facility] Comment on above: Order Comment: FASTI NG:UNKNOWN FASTING: UNKNOWN Performed By: #### 6 399, 04932 #### [facility] [address], [address] [place] [address] Quality Assurance Tester: Jadon Velez MD GFR/1.73 sq M.predicted among non-blacks MDRD (S/P/Bld) [Vol rate/Area] 27 mL/min/{1.73_m2} Low > OR = 60 [facility] Comment on above: Order Comment: FASTI NG:UNKNOWN FASTING: UNKNOWN Performed By: #### 6 399, 79765 #### [facility] [address], [address] [place] [address] Quality Assurance Tester: Jadon Velez MD Glucose [Mass/Vol] 316 mg/dL High 65-99 [facility] Comment on above: Order Comment: FASTI NG:UNKNOWN FASTING: UNKNOWN Result Comment: Fasting reference interval For someone without known diabetes, a glucose value >125 mg/dL indicates that they may have diabetes and this should be confirmed with a follow-up test. Performed By: #### 6 399, 12252 #### [facility] [address], [address] [place] [address] Quality Assurance Tester: Jadon Velez MD Potassium [Moles/Vol] 5.6 mmol/L High 3.5-5.3 [facility] Comment on above: Order Comment: FASTI NG:UNKNOWN FASTING: UNKNOWN Performed By: #### 6 399, 18828 #### [facility] [address], [address] [place] [address] Quality Assurance Tester: Jadon Velez MD Sodium [Moles/Vol] 137 mmol/L Normal 135-146 [facility] Comment on above: Order Comment: FASTI NG:UNKNOWN FASTING: UNKNOWN Performed By: #### 6 399, 37931 #### [facility] [address], [address] [place] [address] Quality Assurance Tester: Jadon Velez MD Urea nitrogen [Mass/Vol] 66 mg/dL High 7-25 [facility] Comment on above: Order Comment: FASTI NG:UNKNOWN FASTING: UNKNOWN Performed By: #### 6 399, 86920 #### [facility] [address], [address] [place] [address] Quality Assurance Tester: Jadon Velez MD Urea nitrogen/Creatinine [Mass ratio] 28 mg/mg High 6-22 [facility] Comment on above: Order Comment: FASTI NG:UNKNOWN FASTING: UNKNOWN Performed By: #### 6 399, 54187 #### [facility] of [place] [address] Quality Assurance Tester: Jadon Velez MD CBC (INCLUDES DIFF/PLT)on Basophils (Bld) [#/Vol] 0.213 10*3/uL High 0-200 [facility] Comment on above: Performed By: #### 6 399, 45339 #### [facility] of [address], [address] [place] [address] Quality Assurance Tester: Jadon Velez MD Basophils/100 WBC (Bld) 2.6 % Normal [facility] Comment on above: Performed By: #### 6 399, 25910 #### [facility] [place] [address] Quality Assurance Tester: Jadon Velez MD Eosinophils (Bld) [#/Vol] 0.5 10*3/uL Normal 15-500 [facility] Comment on above: Performed By: #### 6 399, 21137 #### [facility] [place] [address] Quality Assurance Tester: Jadon Velez MD Eosinophils/100 WBC (Bld) 6.1 % Normal [facility] Comment on above: Performed By: #### 6 399, 02846 #### [facility] [place] [address] Quality Assurance Tester: Jadon Velez MD Erythrocyte distribution width (RBC) [Ratio] 12.9 % Normal 11.0-15.0 [facility] Comment on above: Performed By: #### 6 399, 86068 #### [facility] [place] [address] Quality Assurance Tester: Jadon Velez MD Hematocrit (Bld) [Volume fraction] 33.8 % Low 38.5-50.0 [facility] Comment on above: Performed By: #### 6 399, 62677 #### [facility] [place] [address] Quality Assurance Tester: Jadon Velez MD Hemoglobin (Bld) [Mass/Vol] 10.9 g/dL Low 13.2-17.1 [facility] Comment on above: Performed By: #### 6 399, 99734 #### [facility] [place] [address] Quality Assurance Tester: Jadon Velez MD Lymphocytes (Bld) [#/Vol] 2.28 10*3/uL Normal 850-3900 [facility] Comment on above: Performed By: #### 6 399, 74700 #### [facility] [place] [address] Quality Assurance Tester: Jadon Velez MD Lymphocytes/100 WBC (Bld) 27.8 % Normal [facility] Comment on above: Performed By: #### 6 399, 54502 #### [facility] [place] [address] Quality Assurance Tester: Jadon Velez MD MCH (RBC) [Entitic mass] 30.9 pg Normal 27.0-33.0 [facility] Comment on above: Performed By: #### 6 399, 58968 #### [facility] [place] [address] Quality Assurance Tester: Jadon Velez MD MCHC (RBC) [Mass/Vol] 32.2 g/dL Normal 32.0-36.[address] [facility] [address] [facility] Comment on above: Result Comment: For adults, a slight decrease in the calculated MCHC value (in the range of 30 to 32 g/dL) is most likely not clinically significant; however, it should be interpreted with caution in correlation with other red cell parameters and the patient's clinical condition. Performed By: #### 6 399, 90052 #### [facility] [place] [address] Quality Assurance Tester: Jadon Velez MD MCV (RBC) [Entitic vol] 95.8 fL Normal 80.0-100.0 [facility] Comment on above: Performed By: #### 6 399, 83010 #### [facility] [place] [address] Quality Assurance Tester: Jadon Velez MD Monocytes (Bld) [#/Vol] 0.631 10*3/uL Normal 200-950 [facility] Comment on above: Performed By: #### 6 399, 53974 #### [facility] of [address], [address] [place] [address] Quality Assurance Tester: Jadon Velez MD Monocytes/100 WBC (Bld) 7.7 % Normal [facility] Comment on above: Performed By: #### 6 399, 50189 #### [facility] [place] [address] Quality Assurance Tester: Jadon Velez MD Neutrophils (Bld) [#/Vol] 4.576 10*3/uL Normal 1500-78 00 [facility] Comment on above: Performed By: #### 6 399, 01931 #### [facility] [place] [address] Quality Assurance Tester: Jadon Velez MD Neutrophils/100 WBC (Bld) 55.8 % Normal [facility] Comment on above: Performed By: #### 6 399, 35491 #### [facility] [place] [address] Quality Assurance Tester: Jadon Velez MD Platelet mean volume (Bld) [Entitic vol] 11.5 fL Normal 7.5-12.5 [facility] Comment on above: Performed By: #### 6 399, 90143 #### [facility] [place] [address] Quality Assurance Tester: Jadon Velez MD Platelets (Bld) [#/Vol] 289 10*3/uL Normal 140-400 [facility] Comment on above: Performed By: #### 6 399, 17507 #### [facility] [place] [address] Quality Assurance Tester: Jadon Velez MD RBC (Bld) [#/Vol] 3.53 10*6/uL Low 4.20-5.80 [facility] Comment on above: Performed By: #### 6 399, 97139 #### [facility] of [facility] [address], [address] [place] [address] Quality Assurance Tester: Jadon Velez MD WBC (Bld) [#/Vol] 8.2 10*3/uL Normal 3.8-10.8 [facility] Comment on above: Performed By: #### 6 399, 63817 #### [facility] [address], [address] [place] [address] Quality Assurance Tester: Jadon Velez MD Lipid Profileon 09-21-2024 Cholesterol [Mass/Vol] 148 mg/dL Normal 200 [facility] Comment on above: Result Comment: <200 mg/dL Desirable 200-240 mg/dL Borderline >240 mg/dL High Risk Performed By: #### L 500.4100 ####[facility] [address] [facility] [address] Cholesterol in HDL [Mass/Vol] 49 mg/dL Normal [facility] Comment on above: Result Comment: The drugs N-Acetylcysteine and Metamizole may falselydepress this assay. Reference Range HDL <40 mg/dL Low HDL Cholesterol HDL >or= 60 mg/dL High HDL Cholesterol Performed By: #### L 500.4100 ####[facility] [address] [place], [address] Cholesterol in LDL [Mass/Vol] 87 mg/dL Normal 0-130 [facility] Comment on above: Performed By: #### L 500.4100 ####[facility] [address] [place], [address] Cholesterol in VLDL [Mass/Vol] 12 mg/dL Normal 5-40 [facility] Comment on above: Performed By: #### L 500.4100 ####[facility] [address] [place], [address] Triglyceride [Mass/Vol] 58 mg/dL Normal [facility] Comment on above: Result Comment: The drugs N-Acetylcysteine and Metamizole may falselydepress this assay.Serum Triglycerides Reference Interval Normal <150 mg/dL Borderline high 150 - 199 mg/dL High 200 - 499 mg/dL Very High > or = 500 mg/dL Performed By: #### L 500.4100 ####[facility] [address] [place], [address] Basic Metabolic Profile (BMP )on 09-15-2024 BUN Normal 7-18 [facility] Comment on above: Result Comment: Canc elled via OM: Order cancelled - Patient discharged Performed By: #### L 500.2500, L100.0100 ####[facility] [address] [place], [address] BUN/CRE Normal 10-20 [facility] Comment on above: Result Comment: Canc elled via OM: Order cancelled - Patient discharged Performed By: #### L 500.2500, L100.0100 ####[facility] [address] [place], [address] CA,Total Normal 8.5-10.1 [facility] Comment on above: Result Comment: Canc elled via OM: Order cancelled - Patient discharged Performed By: #### L 500.2500, L100.0100 ####[facility] [address] [place], [address] CL Normal 98-107 [facility] Comment on above: Result Comment: Canc elled via OM: Order cancelled - Patient discharged Performed By: #### L 500.2500, L100.0100 ####[facility] [address] [place], [address] CO2 Normal 21.0-32.0 [facility] Comment on above: Result Comment: Canc elled via OM: Order cancelled - Patient discharged Performed By: #### L 500.2500, L100.0100 ####[facility] [address] [place], [address] CREAT,SERUM Normal 0.70-1.30 [facility] Comment on above: Result Comment: Canc elled via OM: Order cancelled - Patient discharged Performed By: #### L 500.2500, L100.0100 ####[facility] [address] [place], [address] EST GFR Normal >60 [facility] Comment on above: Result Comment: Canc elled via OM: Order cancelled - Patient discharged Performed By: #### L 500.2500, L100.0100 ####[facility] [address] [place], [address] EST GFR - AA Normal >60 [facility] Comment on above: Result Comment: Canc elled via OM: Order cancelled - Patient discharged Performed By: #### L 500.2500, L100.0100 ####[facility] [address] [place], [address] GAP Normal 5-15 [facility] Comment on above: Result Comment: Canc elled via OM: Order cancelled - Patient discharged Performed By: #### L 500.2500, L100.0100 ####[facility] [address] [place], [address] GLU Normal 74-106 [facility] Comment on above: Result Comment: Canc elled via OM: Order cancelled - Patient discharged Performed By: #### L 500.2500, L100.0100 ####[facility] [address] [place], [address] Potassium Normal 3.5-5.1 [facility] Comment on above: Result Comment: Canc elled via OM: Order cancelled - Patient discharged Performed By: #### L 500.2500, L100.0100 ####[facility] [address] [place], [address] Basic Metabolic Profile (BMP) Normal 136-145 [facility] Comment on above: Result Comment: Canc elled via OM: Order cancelled - Patient discharged Performed By: #### L 500.2500, L100.0100 ####[facility] [address] [place], [address] CBC W/Diff, Automatedon 09-01 Absolute Neut Normal 2.0-7.7 [facility] Comment on above: Result Comment: Canc elled via OM: Order cancelled - Patient discharged Performed By: #### L 500.2500, L100.0100 ####[facility] [address] [place], [address] HCT Normal 40-54 [facility] Comment on above: Result Comment: Canc elled via OM: Order cancelled - Patient discharged Performed By: #### L 500.2500, L100.0100 ####[facility] [address] [place], [address] HGB Normal 13.0-16.5 [facility] Comment on above: Result Comment: Canc elled via OM: Order cancelled - Patient discharged Performed By: #### L 500.2500, L100.0100 ####[facility] [address] [place], [address] MCH Normal 27.0-32.0 [facility] Comment on above: Result Comment: Canc elled via OM: Order cancelled - Patient discharged Performed By: #### L 500.2500, L100.0100 ####[facility] [address] [place], [address] MCHC Normal 32-36 [facility] Comment on above: Result Comment: Canc elled via OM: Order cancelled - Patient discharged Performed By: #### L 500.2500, L100.0100 ####[facility] [address] [place], [address] MCV Normal 80-94 [facility] Comment on above: Result Comment: Canc elled via OM: Order cancelled - Patient discharged Performed By: #### L 500.2500, L100.0100 ####[facility] [address] [place], [address] NEUT% Normal 47-70 [facility] Comment on above: Result Comment: Canc elled via OM: Order cancelled - Patient discharged Performed By: #### L 500.2500, L100.0100 ####[facility] [address] [place], [address] PLT Normal 150-450 [facility] Comment on above: Result Comment: Canc elled via OM: Order cancelled - Patient discharged Performed By: #### L 500.2500, L100.0100 ####[facility] [address] [place], [address] RBC Normal 4.6-6.2 [facility] Comment on above: Result Comment: Canc elled via OM: Order cancelled - Patient discharged Performed By: #### L 500.2500, L100.0100 ####[facility] [address] [place], [address] RDW CV Normal 11.6-14.6 [facility] Comment on above: Result Comment: Canc elled via OM: Order cancelled - Patient discharged Performed By: #### L 500.2500, L100.0100 ####[facility] [address] [place], [address] RDW SD Normal 35.1-43.9 [facility] Comment on above: Result Comment: Canc elled via OM: Order cancelled - Patient discharged Performed By: #### L 500.2500, L100.0100 ####[facility] [address] [place], [address] WBC Normal 4.4-11.0 [facility] Comment on above: Result Comment: Canc elled via OM: Order cancelled - Patient discharged Performed By: #### L 500.2500, L100.0100 ####[facility] [address] [place], [address] Basic Metabolic Profile (BMP )on 09-14-2024 BUN/CRE 21.4 RATIO High 10-20 [facility] Comment on above: Performed By: #### L 500.2500, L100.0100 ####[facility] [address] [place], [address] CA,Total 8.7 mg/dL Normal 8.5-10.1 [facility] Comment on above: Performed By: #### L 500.2500, L100.0100 ####[facility] [address] [place], [address] Chloride [Moles/Vol] 104 mmol/L Normal 98-107 [facility] Comment on above: Performed By: #### L 500.2500, L100.0100 ####[facility] [address] [place], [address] CO2 [Moles/Vol] 24.0 mmol/L Normal 21.0-32.0 [facility] Comment on above: Performed By: #### L 500.2500, L100.0100 ####[facility] [address] [place], [address] Creatinine [Mass/Vol] 1.96 mg/dL High 0.70-1.30 [facility] Comment on above: Result Comment: The validity of the calculated GFR GFRAA in patients over70 years has not been determined. Clinical correlation isessential. Performed By: #### L 500.2500, L100.0100 ####[facility] [address] [place], [address] ECRCL 28.02 ml/min Normal [facility] Comment on above: Performed By: #### L 500.2500, L100.0100 ####[facility] [address] [place], [address] EST GFR - AA 43 mL/min Low >60 [facility] Comment on above: Result Comment: Afri can Bruneian GFR Calc Performed By: #### L 500.2500, L100.0100 ####[facility] [address] [place], [address] GAP 7 Normal 5-15 [facility] Comment on above: Performed By: #### L 500.2500, L100.0100 ####[facility] [address] [place], [address] GFR/1.73 sq M.predicted among non-blacks MDRD (S/P/Bld) [Vol rate/Area] 35 mL/min/{1.73_m2} Low >60 [facility] Comment on above: Result Comment: Non- GFR Calc Performed By: #### L 500.2500, L100.0100 ####[facility] [address] [place], [address] Glucose [Mass/Vol] 292 mg/dL High 74-106 [facility] Comment on above: Result Comment: Gluc ose result greater than or equal to 200 mg/dLsuggests DIABETES MELLITUS per A.D.A. criteria. Performed By: #### L 500.2500, L100.0100 ####[facility] [address] [place], [address] Potassium [Moles/Vol] 4.0 mmol/L Normal 3.5-5.1 [facility] Comment on above: Performed By: #### L 500.2500, L100.0100 ####[facility] [address] [place], [address] Sodium [Moles/Vol] 135 mmol/L Low 136-145 [facility] Comment on above: Performed By: #### L 500.2500, L100.0100 ####[facility] [address] [place], [address] Urea nitrogen [Mass/Vol] 42 mg/dL High 7-18 [facility] Comment on above: Performed By: #### L 500.2500, L100.0100 ####[facility] [address] [place], [address] Bedside Glucoseon 09-14-2024 FINGERSTICK GLU 276 mg/dL High 74-106 [facility] Comment on above: Result Comment: Dr James sim FollowedInsulin GivenMANAGEMENT OF PATIENT CARE PER NURSING PROTOCOL Performed By: #### L 501.080 ####[facility] [address] [place], [address] CBC W/Diff, Automatedon 09-01 Absolute Lymph 1.66 X10 3/uL Normal 0.83-4.51 [facility] Comment on above: Performed By: #### L 500.2500, L100.0100 ####[facility] [address] [place], [address] Absolute Neut 7.6 X10 3/uL Normal 2.0-7.7 [facility] Comment on above: Performed By: #### L 500.2500, L100.0100 ####[facility] [address] [place], [address] Basophils/100 WBC (Bld) 0.9 % Normal 0-1 [facility] Comment on above: Performed By: #### L 500.2500, L100.0100 ####[facility] [address] [place], [address] Eosinophils/100 WBC (Bld) 2.2 % Normal 0-5 [facility] Comment on above: Performed By: #### L 500.2500, L100.0100 ####[facility] [address] [place], [address] Erythrocyte distribution width (RBC) [Ratio] 13.4 % Normal 11.6-14.6 [facility] Comment on above: Performed By: #### L 500.2500, L100.0100 ####[facility] [address] [place], [address] Hematocrit (Bld) [Volume fraction] 32.8 % Low 40-54 [facility] Comment on above: Performed By: #### L 500.2500, L100.0100 ####[facility] [address] [place], [address] Hemoglobin (Bld) [Mass/Vol] 11.1 g/dL Low 13.0-16.5 [facility] Comment on above: Performed By: #### L 500.2500, L100.0100 ####[facility] [address] [place], [address] IG% 0.300 Normal 0.0-0.9 [facility] Comment on above: Result Comment: IG% - Immature Granulocytes (promyelocytes, myelocytes andmetamyelocytes) > 1% indicates that a LEFT SHIFT is Present. Performed By: #### L 500.2500, L100.0100 ####[facility] [address] [place], [address] Lymphocytes/100 WBC (Bld) 15.7 % Low 19-41 [facility] Comment on above: Performed By: #### L 500.2500, L100.0100 ####[facility] [address] [place], [address] MCH (RBC) [Entitic mass] 30.7 pg Normal 27.0-32.0 [facility] Comment on above: Performed By: #### L 500.2500, L100.0100 ####[facility] [address] [place], [address] MCHC (RBC) [Mass/Vol] 33.8 g/dL Normal 32-36 [facility] Comment on above: Performed By: #### L 500.2500, L100.0100 ####[facility] [address] [place], [address] MCV (RBC) [Entitic vol] 90.6 fL Normal 80-94 [facility] Comment on above: Performed By: #### L 500.2500, L100.0100 ####[facility] [address] [place], [address] Monocytes/100 WBC (Bld) 9.0 % Normal 0-10 [facility] Comment on above: Performed By: #### L 500.2500, L100.0100 ####[facility] [address] [place], [address] Neutrophils/100 WBC (Bld) 71.9 % High 47-70 [facility] Comment on above: Performed By: #### L 500.2500, L100.0100 ####[facility] [address] [place], [address] Nucleated RBC (Bld) [#/Vol] 0 10*3/uL Normal 0-5 [facility] Comment on above: Performed By: #### L 500.2500, L100.0100 ####[facility] [address] [place], [address] Platelet mean volume (Bld) [Entitic vol] 11.9 fL Normal 6.2-12.0 [facility] Comment on above: Performed By: #### L 500.2500, L100.0100 ####[facility] [address] [place], [address] Platelets (Bld) [#/Vol] 186 10*3/uL Normal 150-450 [facility] Comment on above: Performed By: #### L 500.2500, L100.0100 ####[facility] [address] [place], [address] RBC (Bld) [#/Vol] 3.62 10*6/uL Low 4.6-6.2 [facility] Comment on above: Performed By: #### L 500.2500, L100.0100 ####[facility] [address] [place], [address] RDW SD 44.5 fl High 35.1-43.9 [facility] Comment on above: Performed By: #### L 500.2500, L100.0100 ####[facility] [address] [place], [address] WBC (Bld) [#/Vol] 10.5 10*3/uL Normal 4.4-11.0 [facility] Comment on above: Performed By: #### L 500.2500, L100.0100 ####[facility] [address] [place], [address] Basic Metabolic Profile (BMP )on 09-13-2024 BUN Normal 7-18 [facility] Comment on above: Result Comment: Canc elled via OM: MD Ordered Performed By: #### L 100.0100, L500.2500 ####[facility] [address] [place], [address] BUN/CRE Normal 10-20 [facility] Comment on above: Result Comment: Canc elled via OM: MD Ordered Performed By: #### L 100.0100, L500.2500 ####[facility] [address] [place], [address] CA,Total Normal 8.5-10.1 [facility] Comment on above: Result Comment: Canc elled via OM: MD Ordered Performed By: #### L 100.0100, L500.2500 ####[facility] [address] [place], [address] CL Normal 98-107 [facility] Comment on above: Result Comment: Canc elled via OM: MD Ordered Performed By: #### L 100.0100, L500.2500 ####[facility] [address] [place], [address] CO2 Normal 21.0-32.0 [facility] Comment on above: Result Comment: Canc elled via OM: MD Ordered Performed By: #### L 100.0100, L500.2500 ####[facility] [address] [place], [address] CREAT,SERUM Normal 0.70-1.30 [facility] Comment on above: Result Comment: Canc elled via OM: MD Ordered Performed By: #### L 100.0100, L500.2500 ####[facility] [address] [place], [address] EST GFR Normal >60 [facility] Comment on above: Result Comment: Canc elled via OM: MD Ordered Performed By: #### L 100.0100, L500.2500 ####[facility] [address] [place], [address] EST GFR - AA Normal >60 [facility] Comment on above: Result Comment: Canc elled via OM: MD Ordered Performed By: #### L 100.0100, L500.2500 ####[facility] [address] [place], [address] GAP Normal 5-15 [facility] Comment on above: Result Comment: Canc elled via OM: MD Ordered Performed By: #### L 100.0100, L500.2500 ####[facility] [address] [place], [address] GLU Normal 74-106 [facility] Comment on above: Result Comment: Canc elled via OM: MD Ordered Performed By: #### L 100.0100, L500.2500 ####[facility] [address] [place], [address] Potassium Normal 3.5-5.1 [facility] Comment on above: Result Comment: Ray toussaint via OM: Ordered Performed By: #### L 100.0100, L500.2500 ####[facility] [address] [place], [address] Basic Metabolic Profile (BMP) Normal 136-145 [facility] Comment on above: Result Comment: Ray toussaint via OM: Ordered Performed By: #### L 100.0100, L500.2500 ####[facility] [address] [place], [address] BUN/CRE 17.4 RATIO Normal 10-20 [facility] Comment on above: Performed By: #### L 500.2500, L501.2300, L501.5200, L100.0100 ####[facility] [address] [place], [address] CA,Total 8.7 mg/dL Normal 8.5-10.1 [facility] Comment on above: Performed By: #### L 500.2500, L501.2300, L501.5200, L100.0100 ####[facility] [address] [place], [address] Chloride [Moles/Vol] 105 mmol/L Normal 98-107 [facility] Comment on above: Performed By: #### L 500.2500, L501.2300, L501.5200, L100.0100 ####[facility] [address] [place], [address] CO2 [Moles/Vol] 28.0 mmol/L Normal 21.0-32.0 [facility] Comment on above: Performed By: #### L 500.2500, L501.2300, L501.5200, L100.0100 ####[facility] [address] [place], [address] Creatinine [Mass/Vol] 1.78 mg/dL High 0.70-1.30 [facility] Comment on above: Result Comment: The validity of the calculated GFR GFRAA in patients over70 years has not been determined. Clinical correlation isessential. Performed By: #### L 500.2500, L501.2300, L501.5200, L100.0100 ####[facility] [address] [place], [address] ECRCL 30.95 ml/min Normal [facility] Comment on above: Performed By: #### L 500.2500, L501.2300, L501.5200, L100.0100 ####[facility] [address] [place], [address] EST GFR - AA 47 mL/min Low >60 [facility] Comment on above: Result Comment: Afri can Bruneian GFR Calc Performed By: #### L 500.2500, L501.2300, L501.5200, L100.0100 ####[facility] [address] [place], [address] GAP 7 Normal 5-15 [facility] Comment on above: Performed By: #### L 500.2500, L501.2300, L501.5200, L100.0100 ####[facility] [address] [place], [address] GFR/1.73 sq M.predicted among non-blacks MDRD (S/P/Bld) [Vol rate/Area] 39 mL/min/{1.73_m2} Low >60 [facility] Comment on above: Result Comment: Non- GFR Calc Performed By: #### L 500.2500, L501.2300, L501.5200, L100.0100 ####[facility] [address] [place], [address] Glucose [Mass/Vol] 138 mg/dL High 74-106 [facility] Comment on above: Result Comment: Fast ing Glucose result greater than or equal to 126 mg/dLsuggests DIABETES MELLITUS per A.D.A. criteria. Performed By: #### L 500.2500, L501.2300, L501.5200, L100.0100 ####[facility] [address] [place], [address] Potassium [Moles/Vol] 3.4 mmol/L Low 3.5-5.1 [facility] Comment on above: Performed By: #### L 500.2500, L501.2300, L501.5200, L100.0100 ####[facility] [address] [place], [address] Sodium [Moles/Vol] 140 mmol/L Normal 136-145 [facility] Comment on above: Performed By: #### L 500.2500, L501.2300, L501.5200, L100.0100 ####[facility] [address] [place], [address] Urea nitrogen [Mass/Vol] 31 mg/dL High 7-18 [facility] Comment on above: Performed By: #### L 500.2500, L501.2300, L501.5200, L100.0100 ####[facility] [address] [place], [address] Bedside Glucoseon 09-13-2024 FINGERSTICK GLU 281 mg/dL High 74-106 [facility] Comment on above: Result Comment: ADITI GEMENT OF PATIENT CARE PER NURSING PROTOCOL Performed By: #### L 501.080 ####[facility] [address] [place], [address] FINGERSTICK GLU 179 mg/dL High 74-106 [facility] Comment on above: Result Comment: ADITI GEMENT OF PATIENT CARE PER NURSING PROTOCOL Performed By: #### L 501.080 ####[facility] [address] [place], [address] FINGERSTICK GLU 234 mg/dL High 74-106 [facility] Comment on above: Result Comment: ADITI GEMENT OF PATIENT CARE PER NURSING PROTOCOL Performed By: #### L 501.080 ####[facility] [address] [place], [address] FINGERSTICK GLU 238 mg/dL High 74-106 [facility] Comment on above: Result Comment: ADITI GEMENT OF PATIENT CARE PER NURSING PROTOCOL Performed By: #### L 501.080 ####[facility] [address] [place], [address] FINGERSTICK GLU 126 mg/dL High 74-106 [facility] Comment on above: Result Comment: ADITI GEMENT OF PATIENT CARE PER NURSING PROTOCOL Performed By: #### L 501.080 ####[facility] [address] [place], [address] CBC W/Diff, Automatedon 11-1 Absolute Neut Normal 2.0-7.7 [facility] Comment on above: Result Comment: Canc elled via OM: MD Ordered Performed By: #### L 100.0100, L500.2500 ####[facility] [address] [place], [address] HCT Normal 40-54 [facility] Comment on above: Result Comment: Canc elled via OM: MD Ordered Performed By: #### L 100.0100, L500.2500 ####[facility] [address] [place], [address] HGB Normal 13.0-16.5 [facility] Comment on above: Result Comment: Canc elled via OM: MD Ordered Performed By: #### L 100.0100, L500.2500 ####[facility] [address] [place], [address] MCH Normal 27.0-32.0 [facility] Comment on above: Result Comment: Canc elled via OM: MD Ordered Performed By: #### L 100.0100, L500.2500 ####[facility] [address] [place], [address] MCHC Normal 32-36 [facility] Comment on above: Result Comment: Canc elled via OM: MD Ordered Performed By: #### L 100.0100, L500.2500 ####[facility] [address] [place], [address] MCV Normal 80-94 [facility] Comment on above: Result Comment: Canc elled via OM: MD Ordered Performed By: #### L 100.0100, L500.2500 ####[facility] [address] [place], [address] NEUT% Normal 47-70 [facility] Comment on above: Result Comment: Canc elled via OM: MD Ordered Performed By: #### L 100.0100, L500.2500 ####[facility] [address] [place], [address] PLT Normal 150-450 [facility] Comment on above: Result Comment: Canc elled via OM: MD Ordered Performed By: #### L 100.0100, L500.2500 ####[facility] [address] [place], [address] RBC Normal 4.6-6.2 [facility] Comment on above: Result Comment: Canc elled via OM: MD Ordered Performed By: #### L 100.0100, L500.2500 ####[facility] [address] [place], [address] RDW CV Normal 11.6-14.6 [facility] Comment on above: Result Comment: Canc elled via OM: MD Ordered Performed By: #### L 100.0100, L500.2500 ####[facility] [address] [place], [address] RDW SD Normal 35.1-43.9 [facility] Comment on above: Result Comment: Ray toussaint via OM: MD Ordered Performed By: #### L 100.0100, L500.2500 ####[facility] [address] [place], [address] WBC Normal 4.4-11.0 [facility] Comment on above: Result Comment: Ray toussaint via OM: MD Ordered Performed By: #### L 100.0100, L500.2500 ####[facility] [address] [place], [address] Absolute Lymph 2.32 X10 3/uL Normal 0.83-4.51 [facility] Comment on above: Performed By: #### L 500.2500, L501.2300, L501.5200, L100.0100 ####[facility] [address] [place], [address] Absolute Neut 7.4 X10 3/uL Normal 2.0-7.7 [facility] Comment on above: Performed By: #### L 500.2500, L501.2300, L501.5200, L100.0100 ####[facility] [address] [place], [address] Basophils/100 WBC (Bld) 0.8 % Normal 0-1 [facility] Comment on above: Performed By: #### L 500.2500, L501.2300, L501.5200, L100.0100 ####[facility] [address] [place], [address] Eosinophils/100 WBC (Bld) 1.3 % Normal 0-5 [facility] Comment on above: Performed By: #### L 500.2500, L501.2300, L501.5200, L100.0100 ####[facility] [address] [place], [address] Erythrocyte distribution width (RBC) [Ratio] 13.8 % Normal 11.6-14.6 [facility] Comment on above: Performed By: #### L 500.2500, L501.2300, L501.5200, L100.0100 ####[facility] [address] [place], [address] Hematocrit (Bld) [Volume fraction] 30.7 % Low 40-54 [facility] Comment on above: Performed By: #### L 500.2500, L501.2300, L501.5200, L100.0100 ####[facility] [address] [place], [address] Hemoglobin (Bld) [Mass/Vol] 10.4 g/dL Low 13.0-16.5 [facility] Comment on above: Performed By: #### L 500.2500, L501.2300, L501.5200, L100.0100 ####[facility] [address] [place], [address] IG% 0.400 Normal 0.0-0.9 [facility] Comment on above: Result Comment: IG% - Immature Granulocytes (promyelocytes, myelocytes andmetamyelocytes) > 1% indicates that a LEFT SHIFT is Present. Performed By: #### L 500.2500, L501.2300, L501.5200, L100.0100 ####[facility] [address] [place], [address] Lymphocytes/100 WBC (Bld) 21.2 % Normal 19-41 [facility] Comment on above: Performed By: #### L 500.2500, L501.2300, L501.5200, L100.0100 ####[facility] [address] [place], [address] MCH (RBC) [Entitic mass] 30.6 pg Normal 27.0-32.0 [facility] Comment on above: Performed By: #### L 500.2500, L501.2300, L501.5200, L100.0100 ####[facility] [address] [place], [address] MCHC (RBC) [Mass/Vol] 33.9 g/dL Normal 32-36 [facility] Comment on above: Performed By: #### L 500.2500, L501.2300, L501.5200, L100.0100 ####[facility] [address] [place], [address] MCV (RBC) [Entitic vol] 90.3 fL Normal 80-94 [facility] Comment on above: Performed By: #### L 500.2500, L501.2300, L501.5200, L100.0100 ####[facility] [address] [place], [address] Monocytes/100 WBC (Bld) 9.3 % Normal 0-10 [facility] Comment on above: Performed By: #### L 500.2500, L501.2300, L501.5200, L100.0100 ####[facility] [address] [place], [address] Neutrophils/100 WBC (Bld) 67.0 % Normal 47-70 [facility] Comment on above: Performed By: #### L 500.2500, L501.2300, L501.5200, L100.0100 ####[facility] [address] [place], [address] Nucleated RBC (Bld) [#/Vol] 0 10*3/uL Normal 0-5 [facility] Comment on above: Performed By: #### L 500.2500, L501.2300, L501.5200, L100.0100 ####[facility] [address] [place], [address] Platelet mean volume (Bld) [Entitic vol] 11.4 fL Normal 6.2-12.0 [facility] Comment on above: Performed By: #### L 500.2500, L501.2300, L501.5200, L100.0100 ####[facility] [address] [place], [address] Platelets (Bld) [#/Vol] 168 10*3/uL Normal 150-450 [facility] Comment on above: Performed By: #### L 500.2500, L501.2300, L501.5200, L100.0100 ####[facility] [address] [place], [address] RBC (Bld) [#/Vol] 3.40 10*6/uL Low 4.6-6.2 [facility] Comment on above: Performed By: #### L 500.2500, L501.2300, L501.5200, L100.0100 ####[facility] [address] [place], [address] RDW SD 45.1 fl High 35.1-43.9 [facility] Comment on above: Performed By: #### L 500.2500, L501.2300, L501.5200, L100.0100 ####[facility] [address] [place], [address] WBC (Bld) [#/Vol] 11.0 10*3/uL Normal 4.4-11.0 [facility] Comment on above: Performed By: #### L 500.2500, L501.2300, L501.5200, L100.0100 ####[facility] [address] [place], [address] Magnesiumon 09-13-2024 Magnesium [Mass/Vol] 2.0 mg/dL Normal 1.6-2.6 [facility] Comment on above: Performed By: #### L 500.2500, L501.2300, L501.5200, L100.0100 ####[facility] [address] [place], [address] Phosphoruson 09-13-2024 Phosphate [Mass/Vol] 3.2 mg/dL Normal 2.5-4.9 [facility] Comment on above: Performed By: #### L 500.2500, L501.2300, L501.5200, L100.0100 ####[facility] [address] [place], [address] 12 Lead EKGon 09-12-2024 12 Lead EKG Normal [facility] BNP,B-Type NATRIURETIC PEPTI Silviano 09-12-2024 Natriuretic peptide B (Bld) [Mass/Vol] 903.4 pg/mL High 0-100 [facility] Comment on above: Performed By: #### L 100.0100, L501.5425, L300.3900, L501.5200, L300.4310, L500.2500, L503.6620 ####[facility] [address] [place], [address] Basic Metabolic Profile (BMP )on 09-12-2024 BUN/CRE 14.5 RATIO Normal 10-20 [facility] Comment on above: Order Comment: 1Y Performed By: #### L 100.0100, L501.5425, L300.3900, L501.5200, L300.4310, L500.2500, L503.6620 ####[facility] [address] [place], [address] CA,Total 9.1 mg/dL Normal 8.5-10.1 [facility] Comment on above: Order Comment: 1Y Performed By: #### L 100.0100, L501.5425, L300.3900, L501.5200, L300.4310, L500.2500, L503.6620 ####[facility] [address] [place], [address] Chloride [Moles/Vol] 105 mmol/L Normal 98-107 [facility] Comment on above: Order Comment: 1Y Performed By: #### L 100.0100, L501.5425, L300.3900, L501.5200, L300.4310, L500.2500, L503.6620 ####[facility] [address] [place], [address] CO2 [Moles/Vol] 22.0 mmol/L Normal 21.0-32.0 [facility] Comment on above: Order Comment: 1Y Performed By: #### L 100.0100, L501.5425, L300.3900, L501.5200, L300.4310, L500.2500, L503.6620 ####[facility] [address] [place], [address] Creatinine [Mass/Vol] 1.86 mg/dL High 0.70-1.30 [facility] Comment on above: Order Comment: 1Y Result Comment: The validity of the calculated GFR GFRAA in patients over70 years has not been determined. Clinical correlation isessential. Performed By: #### L 100.0100, L501.5425, L300.3900, L501.5200, L300.4310, L500.2500, L503.6620 ####[facility] [address] [place], [address] ECRCL 29.61 ml/min Normal [facility] Comment on above: Order Comment: 1Y Performed By: #### L 100.0100, L501.5425, L300.3900, L501.5200, L300.4310, L500.2500, L503.6620 ####[facility] [address] [place], [address] EST GFR - AA 45 mL/min Low >60 [facility] Comment on above: Order Comment: 1Y Result Comment: Afri can Bruneian GFR Calc Performed By: #### L 100.0100, L501.5425, L300.3900, L501.5200, L300.4310, L500.2500, L503.6620 ####[facility] [address] [place], [address] GAP 11 Normal 5-15 [facility] Comment on above: Order Comment: 1Y Performed By: #### L 100.0100, L501.5425, L300.3900, L501.5200, L300.4310, L500.2500, L503.6620 ####[facility] [address] [place], [address] GFR/1.73 sq M.predicted among non-blacks MDRD (S/P/Bld) [Vol rate/Area] 37 mL/min/{1.73_m2} Low >60 [facility] Comment on above: Order Comment: 1Y Result Comment: Non- GFR Calc Performed By: #### L 100.0100, L501.5425, L300.3900, L501.5200, L300.4310, L500.2500, L503.6620 ####[facility] [address] [place], [address] Glucose [Mass/Vol] 369 mg/dL High 74-106 [facility] Comment on above: Order Comment: 1Y Result Comment: Gluc ose result greater than or equal to 200 mg/dLsuggests DIABETES MELLITUS per A.D.A. criteria. Performed By: #### L 100.0100, L501.5425, L300.3900, L501.5200, L300.4310, L500.2500, L503.6620 ####[facility] [address] [place], [address] Potassium [Moles/Vol] 4.1 mmol/L Normal 3.5-5.1 [facility] Comment on above: Order Comment: 1Y Performed By: #### L 100.0100, L501.5425, L300.3900, L501.5200, L300.4310, L500.2500, L503.6620 ####[facility] [address] [place], [address] Sodium [Moles/Vol] 138 mmol/L Normal 136-145 [facility] Comment on above: Order Comment: 1Y Performed By: #### L 100.0100, L501.5425, L300.3900, L501.5200, L300.4310, L500.2500, L503.6620 ####[facility] [address] [place], [address] Urea nitrogen [Mass/Vol] 27 mg/dL High 7-18 [facility] Comment on above: Order Comment: 1Y Performed By: #### L 100.0100, L501.5425, L300.3900, L501.5200, L300.4310, L500.2500, L503.6620 ####[facility] [address] [place], [address] Bedside Glucoseon 09-12-2024 FINGERSTICK GLU 202 mg/dL High 74-106 [facility] Comment on above: Result Comment: ADITI GEMENT OF PATIENT CARE PER NURSING PROTOCOL Performed By: #### L 501.080 ####[facility] [address] [place], [address] FINGERSTICK GLU 122 mg/dL High 74-106 [facility] Comment on above: Result Comment: ADITI GEMENT OF PATIENT CARE PER NURSING PROTOCOL Performed By: #### L 501.080 ####[facility] [address] [place], [address] FINGERSTICK GLU 398 mg/dL High 74-106 [facility] Comment on above: Result Comment: ADITI GEMENT OF PATIENT CARE PER NURSING PROTOCOL Performed By: #### L 501.080 ####[facility] [address] [place], [address] FINGERSTICK GLU 377 mg/dL High 74-106 [facility] Comment on above: Result Comment: ADITI ESCOBEDO OF PATIENT CARE PER NURSING PROTOCOL Performed By: #### L 501.080 ####[facility] [address] [place], [address] CBC W/Diff, Automatedon 09-01 Absolute Lymph 2.62 X10 3/uL Normal 0.83-4.51 [facility] Comment on above: Performed By: #### L 100.0100, L501.5425, L300.3900, L501.5200, L300.4310, L500.2500, L503.6620 ####[facility] [address] [place], [address] Absolute Neut 19.7 X10 3/uL High 2.0-7.7 [facility] Comment on above: Performed By: #### L 100.0100, L501.5425, L300.3900, L501.5200, L300.4310, L500.2500, L503.6620 ####[facility] [address] [place], [address] Basophils/100 WBC (Bld) 0.7 % Normal 0-1 [facility] Comment on above: Performed By: #### L 100.0100, L501.5425, L300.3900, L501.5200, L300.4310, L500.2500, L503.6620 ####[facility] [address] [place], [address] Eosinophils/100 WBC (Bld) 0.8 % Normal 0-5 [facility] Comment on above: Performed By: #### L 100.0100, L501.5425, L300.3900, L501.5200, L300.4310, L500.2500, L503.6620 ####[facility] [address] [place], [address] Erythrocyte distribution width (RBC) [Ratio] 13.8 % Normal 11.6-14.6 [facility] Comment on above: Performed By: #### L 100.0100, L501.5425, L300.3900, L501.5200, L300.4310, L500.2500, L503.6620 ####[facility] [address] [place], [address] Hematocrit (Bld) [Volume fraction] 38.9 % Low 40-54 [facility] Comment on above: Performed By: #### L 100.0100, L501.5425, L300.3900, L501.5200, L300.4310, L500.2500, L503.6620 ####[facility] [address] [place], [address] Hemoglobin (Bld) [Mass/Vol] 13.1 g/dL Normal 13.0-16.5 [facility] Comment on above: Performed By: #### L 100.0100, L501.5425, L300.3900, L501.5200, L300.4310, L500.2500, L503.6620 ####[facility] [address] [place], [address] IG% 0.800 Normal 0.0-0.9 [facility] Comment on above: Result Comment: IG% - Immature Granulocytes (promyelocytes, myelocytes andmetamyelocytes) > 1% indicates that a LEFT SHIFT is Present. Performed By: #### L 100.0100, L501.5425, L300.3900, L501.5200, L300.4310, L500.2500, L503.6620 ####[facility] [address] [place], [address] Lymphocytes/100 WBC (Bld) 10.7 % Low 19-41 [facility] Comment on above: Performed By: #### L 100.0100, L501.5425, L300.3900, L501.5200, L300.4310, L500.2500, L503.6620 ####[facility] [address] [place], [address] MCH (RBC) [Entitic mass] 30.6 pg Normal 27.0-32.0 [facility] Comment on above: Performed By: #### L 100.0100, L501.5425, L300.3900, L501.5200, L300.4310, L500.2500, L503.6620 ####[facility] [address] [place], [address] MCHC (RBC) [Mass/Vol] 33.7 g/dL Normal 32-36 [facility] Comment on above: Performed By: #### L 100.0100, L501.5425, L300.3900, L501.5200, L300.4310, L500.2500, L503.6620 ####[facility] [address] [place], [address] MCV (RBC) [Entitic vol] 90.9 fL Normal 80-94 [facility] Comment on above: Performed By: #### L 100.0100, L501.5425, L300.3900, L501.5200, L300.4310, L500.2500, L503.6620 ####[facility] [address] [place], [address] Monocytes/100 WBC (Bld) 6.2 % Normal 0-10 [facility] Comment on above: Performed By: #### L 100.0100, L501.5425, L300.3900, L501.5200, L300.4310, L500.2500, L503.6620 ####[facility] [address] [place], [address] Neutrophils/100 WBC (Bld) 80.8 % High 47-70 [facility] Comment on above: Performed By: #### L 100.0100, L501.5425, L300.3900, L501.5200, L300.4310, L500.2500, L503.6620 ####[facility] [address] [place], [address] Nucleated RBC (Bld) [#/Vol] 0 10*3/uL Normal 0-5 [facility] Comment on above: Performed By: #### L 100.0100, L501.5425, L300.3900, L501.5200, L300.4310, L500.2500, L503.6620 ####[facility] [address] [place], [address] Platelet mean volume (Bld) [Entitic vol] 11.4 fL Normal 6.2-12.0 [facility] Comment on above: Performed By: #### L 100.0100, L501.5425, L300.3900, L501.5200, L300.4310, L500.2500, L503.6620 ####[facility] [address] [place], [address] Platelets (Bld) [#/Vol] 227 10*3/uL Normal 150-450 [facility] Comment on above: Performed By: #### L 100.0100, L501.5425, L300.3900, L501.5200, L300.4310, L500.2500, L503.6620 ####[facility] [address] [place], [address] RBC (Bld) [#/Vol] 4.28 10*6/uL Low 4.6-6.2 [facility] Comment on above: Performed By: #### L 100.0100, L501.5425, L300.3900, L501.5200, L300.4310, L500.2500, L503.6620 ####[facility] [address] [place], [address] RDW SD 46.5 fl High 35.1-43.9 [facility] Comment on above: Performed By: #### L 100.0100, L501.5425, L300.3900, L501.5200, L300.4310, L500.2500, L503.6620 ####[facility] [address] [place], [address] WBC (Bld) [#/Vol] 24.4 10*3/uL High 4.4-11.0 [facility] Comment on above: Performed By: #### L 100.0100, L501.5425, L300.3900, L501.5200, L300.4310, L500.2500, L503.6620 ####[facility] [address] [place], [address] Chest 1 View (Portable)on Chest 1 View (Portable) Normal [facility] Echo Completeon 09-12-2024 Echo Complete Normal [facility] Emergency Department Summary on 09-12-2024 Emergency Department Summary Normal [facility] Kidney and Bladderon 024 Kidney and Bladder Normal [facility] L501.4020on 09-12-2024 TROPONIN-I HS 346 pg/mL Invalid Interpretation Code 3.0-78.0 [facility] Comment on above: Order Comment: 'TROP ' Serial specimen #1, #2 or #3: 3 Result Comment: Crit ical Result(s) Called at: 09:19:13 09/12/2024 by:Eve Mendoza to Tania Cruz. Results read back by same. Please Note: New Test Units and Gender Specific Reference Ranges. For more information see Policy Stat Procedure [place] High Sensitivity Troponin (TNIH) and attachments. Performed By: #### L 501.4020 ####[facility] [address] [place], [address] TROPONIN-I HS 205 pg/mL Invalid Interpretation Code 3.0-78.0 [facility] Comment on above: Result Comment: Crit ical Result(s) Called at: 06:27:52 09/12/2024 by:Eve Valiente. Results read back by same. Please Note: New Test Units and Gender Specific Reference Ranges. For more information see Policy Stat Procedure [place] High Sensitivity Troponin (TNIH) and attachments. Performed By: #### L 501.4020 ####[facility] [address] [place], [place], [phone] L501.5425on 09-12-2024 TROPONIN-I HS 57 pg/mL Normal 3.0-78.0 [facility] Comment on above: Order Comment: 1Y Result Comment: Helder francisco Note: New Test Units and Gender Specific Reference Ranges. For more information see Policy Stat Procedure [place] High Sensitivity Troponin (TNIH) and attachments. Performed By: #### L 100.0100, L501.5425, L300.3900, L501.5200, L300.4310, L500.2500, L503.6620 ####[facility] [address] [place], [place], [address] Magnesiumon 09-12-2024 Magnesium [Mass/Vol] 2.1 mg/dL Normal 1.6-2.6 [facility] Comment on above: Order Comment: 1Y Performed By: #### L 100.0100, L501.5425, L300.3900, L501.5200, L300.4310, L500.2500, L503.6620 ####[facility] [address] [place], [place], [address] Partial Thromboplast Timeon 09-12-2024 aPTT Coag (Bld) [Time] 35.1 s Normal 24.1-36.2 [facility] Comment on above: Performed By: #### L 100.0100, L501.5425, L300.3900, L501.5200, L300.4310, L500.2500, L503.6620 ####[facility] [address] [place], [address] Prothrombin Time w/INRon INR Coag (PPP) [Relative time] 1.1 {INR} Normal [facility] Comment on above: Performed By: #### L 100.0100, L501.5425, L300.3900, L501.5200, L300.4310, L500.2500, L503.6620 ####[facility] [address] [place], [address] PT Coag (PPP) [Time] 14.6 s Normal 11.7-14.9 [facility] Comment on above: Performed By: #### L 100.0100, L501.5425, L300.3900, L501.5200, L300.4310, L500.2500, L503.6620 ####[facility] [address] [place], [address] Renal Artery Duplex Ultrasou ndon 09-12-2024 Renal Artery Duplex Ultrasound Normal [facility] CBC W Auto Differential pane l (Bld)on 07-07-2024 Basophils (Bld) [#/Vol] 0.09 x10*3/uL Normal 0.00-0.10 [facility] Comment on above: Performed By: #### 5 7021-8 #### MAGGI PARNELL ([id number]) [facility] ([facility]) [address] [place] [address] Basophils/100 WBC (Bld) 1.1 % Normal 0.0-2.0 [facility] Comment on above: Performed By: #### 5 7021-8 #### MAGGI PARNELL ([id number]) [facility] ([facility]) [address] [place] [address] Eosinophils (Bld) [#/Vol] 0.43 x10*3/uL High 0.00-0. 40 [facility] Comment on above: Performed By: #### 5 7021-8 #### MAGGI PARNELL ([id number]) [facility] ([facility]) [address] [place] [address] Eosinophils/100 WBC (Bld) 5.4 % Normal 0.0-6.0 [facility] Comment on above: Performed By: #### 5 7021-8 #### MAGGI PARNELL ([id number]) [facility] ([facility]) [address] [place] [address] Erythrocyte distribution width (RBC) [Ratio] 13.5 % Normal 11.5-14.5 [facility] Comment on above: Performed By: #### 5 7021-8 #### MAGGI PARNELL ([id number]) [facility] ([facility]) [address] [place] [address] Hematocrit (Bld) [Volume fraction] 43.5 % Normal 41.0-52.0 [facility] Comment on above: Performed By: #### 5 7021-8 #### MAGGI PARNELL ([id number]) [facility] ([facility]) [address] [place] [address] Hemoglobin (Bld) [Mass/Vol] 13.6 g/dL Normal 13.5-17.5 [facility] Comment on above: Performed By: #### 5 7021-8 #### MAGGI PARNELL ([id number]) [facility] ([facility]) [address] [place] [address] Immature granulocytes (Bld) [#/Vol] 0.02 x10*3/uL Normal 0.00-0.50 [facility] Comment on above: Performed By: #### 5 7021-8 #### MAGGI PARNELL ([id number]) [facility] ([facility]) [address] [place] [address] Immature granulocytes/100 WBC (Bld) 0.3 % Normal 0.0-0.9 [facility] Comment on above: Result Comment: Arielle ture Granulocyte Count (IG) includes promyelocytes, myelocytes and metamyelocytes but does not include bands. Percent differential counts (%) should be interpreted in the context of the absolute cell counts (cells/UL). Performed By: #### 5 7021-8 #### MAGGI PARNELL ([id number]) [facility] ([facility]) [address] [place] [address] Lymphocytes (Bld) [#/Vol] 2.08 x10*3/uL Normal 0.80-3. 00 [facility] Comment on above: Performed By: #### 5 7021-8 #### MAGGI PARNELL ([id number]) [facility] ([facility]) [address] [place] [address] Lymphocytes/100 WBC (Bld) 26.3 % Normal 13.0-44.0 [facility] Comment on above: Performed By: #### 5 7021-8 #### MAGGI PARNELL ([id number]) [facility] ([facility]) [address] [place] [address] MCH (RBC) [Entitic mass] 30.4 pg Normal 26.0-34.0 [facility] Comment on above: Performed By: #### 5 7021-8 #### MAGGI PARNELL ([id number]) [facility] ([facility]) [address] [place] [address] MCHC (RBC) [Mass/Vol] 31.3 g/dL Low 32.0-36.0 [facility] Comment on above: Performed By: #### 5 7021-8 #### MAGGI PARNELL ([id number]) [facility] ([facility]) [address] [place] [address] MCV (RBC) [Entitic vol] 97 fL Normal 80-100 [facility] Comment on above: Performed By: #### 5 7021-8 #### MAGGI PARNELL ([id number]) [facility] ([facility]) [address] [place] [address] Monocytes (Bld) [#/Vol] 0.60 x10*3/uL Normal 0.05-0.80 [facility] Comment on above: Performed By: #### 5 7021-8 #### MAGGI PARNELL ([id number]) [facility] ([facility]) [facility] [place] [address] Monocytes/100 WBC (Bld) 7.6 % Normal 2.0-10.0 [facility] Comment on above: Performed By: #### 5 7021-8 #### MAGGI PARNELL ([id number]) [facility] ([facility]) [address] [place] [address] Neutrophils (Bld) [#/Vol] 4.68 x10*3/uL Normal 1.60-5. 50 [facility] Comment on above: Result Comment: Perc ent differential counts (%) should be interpreted in the context of the absolute cell counts (cells/uL). Performed By: #### 5 7021-8 #### MAGGI PARNELL ([id number]) [facility] ([facility]) [address] [place] [address] Neutrophils/100 WBC (Bld) 59.3 % Normal 40.0-80.0 [facility] Comment on above: Performed By: #### 5 7021-8 #### MAGGI PARNELL ([id number]) [facility] ([facility]) [address] [place] [address]9098 Nucleated RBC/100 WBC (Bld) [Ratio] 0.0 /100 WBCs Normal 0.0-0.0 [facility] Comment on above: Performed By: #### 5 7021-8 #### MAGGI PARNELL ([id number]) [facility] ([facility]) [address] [place] [address] Platelets (Bld) [#/Vol] 260 x10*3/uL Normal 150-450 [facility] Comment on above: Performed By: #### 5 7021-8 #### MAGGI PARNELL ([id number]) [facility] ([facility]) [address] [place] [address] RBC (Bld) [#/Vol] 4.48 x10*6/uL Low 4.50-5.90 [facility] Comment on above: Performed By: #### 5 7021-8 #### MAGGI PARNELL ([id number]) [facility] ([facility]) [address] [place] [address] WBC (Bld) [#/Vol] 7.9 x10*3/uL Normal 4.4-11.3 [facility] Comment on above: Performed By: #### 5 7021-8 #### MAGGI PARNELL ([id number]) [facility] ([facility]) [address] [place] [address] Comprehensive metabolic 2000 panelon 07-07-2024 Albumin BCP dye [Mass/Vol] 4.3 g/dL Normal 3.4-5.0 [facility] Comment on above: Performed By: #### 2 4323-8 #### MAGGI PARNELL ([id number]) [facility] ([facility]) [address] [place] [address] ALP [Catalytic activity/Vol] 69 U/L Normal 33-136 [facility] Comment on above: Performed By: #### 2 4323-8 #### MAGGI PARNELL ([id number]) [facility] ([facility]) [address] [place] [address] ALT With P-5'-P [Catalytic activity/Vol] 8 U/L Low 10-52 [facility] Comment on above: Result Comment: Twila ents treated with Sulfasalazine may generate falsely decreased results for ALT. Performed By: #### 2 4323-8 #### MAGGI PARNELL ([id number]) [facility] ([facility]) [address] [place] [address] Anion gap [Moles/Vol] 14 mmol/L Normal 10-20 [facility] Comment on above: Performed By: #### 2 4323-8 #### MAGGI PARNELL ([id number]) [facility] ([facility]) [address] [place] [address] AST With P-5'-P [Catalytic activity/Vol] 13 U/L Normal 9-39 [facility] Comment on above: Performed By: #### 2 4323-8 #### MAGGI PARNELL ([id number]) [facility] ([facility]) [address] [place] [address] Bilirubin [Mass/Vol] 0.5 mg/dL Normal 0.0-1.2 [facility] Comment on above: Performed By: #### 2 4323-8 #### MAGGI PARNELL ([id number]) [facility] ([facility]) [address] [place] [address] Calcium [Mass/Vol] 9.5 mg/dL Normal 8.6-10.3 [facility] Comment on above: Performed By: #### 2 4323-8 #### MAGGI PARNELL ([id number]) [facility] ([facility]) [address] [place] [address] Chloride [Moles/Vol] 106 mmol/L Normal 98-107 [facility] Comment on above: Performed By: #### 2 4323-8 #### MAGGI PARNELL ([id number]) [facility] ([facility]) [address] [place] [address] 36461 CO2 [Moles/Vol] 27 mmol/L Normal 21-32 [facility] Comment on above: Performed By: #### 2 4323-8 #### MAGGI PARNELL ([id number]) [facility] ([facility]) [address] [place] [address] 33461 Creatinine [Mass/Vol] 1.61 mg/dL High 0.50-1.30 [facility] Comment on above: Performed By: #### 2 4323-8 #### MAGGI PARNELL ([id number]) [facility] ([facility]) [address] [place] [address] [id number] Glomerular filtration rate/1.73 sq M.predicted 43 mL/min/1.73m*2 Low >60 [place] [facility] Comment on above: Result Comment: Calc ulations of estimated GFR are performed using the 2020 CKD-EPI Study Refit equation without the race variable for the IDMS-Traceable creatinine methods. https://jasn.asnjournals.org/content//ASN.20 27930046 Performed By: #### 2 4323-8 #### MAGGI PARNELL ([id number]) [facility] ([facility]) [address] [place] [address] Glucose [Mass/Vol] 119 mg/dL High 74-99 [facility] Comment on above: Performed By: #### 2 4323-8 #### MAGGI PARNELL ([id number]) [facility] ([facility]) [address] [place] [address] 18742 Potassium [Moles/Vol] 4.0 mmol/L Normal 3.5-5.3 [facility] Comment on above: Performed By: #### 2 4323-8 #### MAGGI PARNELL ([id number]) [facility] ([facility]) [address] [place] [address]855 Protein [Mass/Vol] 6.8 g/dL Normal 6.4-8.2 [facility] Comment on above: Performed By: #### 2 432-8 #### MAGGI PARNELL ([id number]) [facility] ([facility]) [address] [place] [address] 15312 Sodium [Moles/Vol] 143 mmol/L Normal 136-145 [facility] Comment on above: Performed By: #### 2 432-8 #### MAGGI PARNELL ([id number]) [facility] ([facility]) [facility] [place] [address] Urea nitrogen [Mass/Vol] 28 mg/dL High 6-23 [facility] Comment on above: Performed By: #### 2 4323-8 #### MAGGI PARNELL ([id number]) [facility] ([facility]) [address] [place] [address] 83793 HbA1c (Bld) [Mass fraction]o n 07-07-2024 Average glucose Estimated from glycated hemoglobin (Bld) [Mass/Vol] 180 mg/dL Normal Not Established [facility] Comment on above: Order Comment: Diagn osis of Diabetes-Adults Non-Diabetic: < or = 5.6% Increased risk for developing diabetes: 5.7-6.4% Diagnostic of diabetes: > or = 6.5% Performed By: #### 4 548-4 #### ALENA Paredes ([id number]) [facility] ([facility]) [address] [place] [address] Hemoglobin A1c/Hemoglobin.to alcira 07-07-2024 HbA1c (Bld) [Mass fraction] 7.9 % High see below [facility] Comment on above: Order Comment: Diagn osis of Diabetes-Adults Non-Diabetic: < or = 5.6% Increased risk for developing diabetes: 5.7-6.4% Diagnostic of diabetes: > or = 6.5% Performed By: #### 4 548-4 #### ALENA Paredes ([id number]) [facility] ([facility]) [address] [place] [address] Phosphateon 07-07-2024 Phosphate [Mass/Vol] 3.8 mg/dL Normal 2.5-4.9 [facility] Comment on above: Result Comment: The performance characteristics of phosphorus testing in heparinized plasma have been validated by the individual laboratory site where testing is performed. Testing on heparinized plasma is not approved by the FDA; however, such approval is not necessary. Performed By: #### 2 777-1 #### MAGGI PARNELL ([id number]) [facility] ([facility]) [address] [place] [address] Thyrotropinon 07-07-2024 TSH Qn 0.85 m[IU]/L Normal 0.44-3.98 [facility] Comment on above: Order Comment: TSH t esting is performed using different testing methodology at [facility] than at other [facility]. Direct result comparisons should only be made within the same method. Performed By: #### 3 016-3 #### MAGGI PARNELL ([id number]) [facility] ([facility]) [address] [place] [address] Thyroxine.freeon 07-07-2024 Free T4 [Mass/Vol] 1.01 ng/dL Normal 0.61-1.12 [facility] Comment on above: Order Comment: Thyro xine Free testing is performed using different testing methodology at [facility] than at other [facility]. Direct result comparisons should only [...] By: #### 3 024-7 #### MAGGI PARNELL ([id number]) [facility] ([facility]) [address] [place] [address] 91475 Urateon 07-07-2024 Urate [Mass/Vol] 5.7 mg/dL Normal 4.0-7.5 [facility] Comment on above: Result Comment: Hortencia puncture immediately after or during the administration of Metamizole may lead to falsely low results. Testing should be performed immediately prior to Metamizole dosing. Performed By: #### 3 084-1 #### MAGGI PARNELL ([id number]) [facility] ([facility]) [address] [place] [address] 17830 PT D/C Summary (1)on 024 PT D/C Summary (1) Normal [facility] Albumin/Creatinineon 024 Albumin/Creatinine DL <= 20 mg/L (U) [Mass ratio] 221.6 ug/mg Creat High <30.0 [facility] Comment on above: Performed By: #### 1 4959-1 #### ALENA Paredes ([id number]) [facility] ([facility]) [id number] [place] [address] Albumin/Creatinine DL <= 20 mg/L (U) [Mass ratio]on 02-07-2024 Albumin DL <= 20 mg/L (U) [Mass/Vol] 219.8 mg/L Normal Not established [facility] Comment on above: Performed By: #### 1 4959-1 #### ALENA Paredes ([id number]) [facility] ([facility]) [address] [place] [address] Creatinine (U) [Mass/Vol] 99.2 mg/dL Normal 20.0-370.0 [facility] Comment on above: Performed By: #### 1 4959-1 #### ALENA Paredes ([id number]) [facility] ([facility]) [address] [place] [address] Comprehensive metabolic 2000 panelon 02-07-2024 Albumin BCP dye [Mass/Vol] 4.0 g/dL Normal 3.4-5.0 [facility] Comment on above: Performed By: #### 2 4323-8 #### MAGGI PARNELL ([id number]) [facility] ([facility]) [address] [place] [address] 54581 ALP [Catalytic activity/Vol] 77 U/L Normal 33-136 [facility] Comment on above: Performed By: #### 2 4323-8 #### MAGGI PARNELL ([id number]) [facility] ([facility]) [address] [place] [address] 60053 ALT With P-5'-P [Catalytic activity/Vol] 7 U/L Low 10-52 [facility] Comment on above: Result Comment: Twila ents treated with Sulfasalazine may generate falsely decreased results for ALT. Performed By: #### 2 4323-8 #### MAGGI PARNELL ([id number]) [facility] ([facility]) [address] [place] [address] 52671 Anion gap [Moles/Vol] 12 mmol/L Normal 10-20 [facility] Comment on above: Performed By: #### 2 4323-8 #### MAGGI PARNELL ([id number]) [facility] ([facility]) [address] [place] [address] 64751 AST With P-5'-P [Catalytic activity/Vol] 14 U/L Normal 9-39 [facility] Comment on above: Performed By: #### 2 4323-8 #### MAGGI PARNELL ([id number]) [facility] ([facility]) [address] [place] [address] 96307 Bilirubin [Mass/Vol] 0.4 mg/dL Normal 0.0-1.2 [facility] Comment on above: Performed By: #### 2 4323-8 #### MAGGI PARNELL ([id number]) [facility] ([facility]) [address] [place] [address] Calcium [Mass/Vol] 9.2 mg/dL Normal 8.6-10.3 [facility] Comment on above: Performed By: #### 2 4323-8 #### MAGGI PARNELL ([id number]) [facility] ([facility]) [address] [place] [address] Chloride [Moles/Vol] 105 mmol/L Normal 98-107 [facility] Comment on above: Performed By: #### 2 4323-8 #### MAGGI PARNELL ([id number]) [facility] ([facility]) [address] [place] [address] 61137 CO2 [Moles/Vol] 29 mmol/L Normal 21-32 [facility] Comment on above: Performed By: #### 2 4323-8 #### MAGGI PARNELL ([id number]) [facility] ([facility]) [address] [place] [address] 32373 Creatinine [Mass/Vol] 1.92 mg/dL High 0.50-1.30 [facility] Comment on above: Performed By: #### 2 4323-8 #### MAGGI PARNELL ([id number]) [facility] ([facility]) [address] [place] [address] 05015 Glomerular filtration rate/1.73 sq M.predicted 35 mL/min/1.73m*2 Low >60 [facility] Comment on above: Result Comment: Calc ulations of estimated GFR are performed using the 2020 CKD-EPI Study Refit equation without the race variable for the IDMS-Traceable creatinine methods. https://jasn.asnjournals.org/content//ASN.20 84688022 Performed By: #### 2 4323-8 #### MAGGI PARNELL ([id number]) [facility] ([facility]) [address] [place] [address] 32874 Glucose [Mass/Vol] 81 mg/dL Normal 74-99 [facility] Comment on above: Performed By: #### 2 4323-8 #### MAGGI PARNELL ([id number]) [facility] ([facility]) [facility] [place] [address] Potassium [Moles/Vol] 4.5 mmol/L Normal 3.5-5.3 [facility] Comment on above: Performed By: #### 2 4323-8 #### MAGGI PARNELL ([id number]) [facility] ([facility]) [address] [place] [address] 16472 Protein [Mass/Vol] 6.4 g/dL Normal 6.4-8.2 [facility] Comment on above: Performed By: #### 2 4323-8 #### MAGGI PARNELL ([id number]) [facility] ([facility]) [address] [place] [address] 42887 Sodium [Moles/Vol] 141 mmol/L Normal 136-145 [facility] Comment on above: Performed By: #### 2 4323-8 #### MAGGI PARNELL ([id number]) [facility] ([facility]) [address] [place] [address] 57482 Urea nitrogen [Mass/Vol] 29 mg/dL High 6-23 [facility] Comment on above: Performed By: #### 2 4323-8 #### MAGGI PARNELL ([id number]) [facility] ([facility]) [address] [place] [address] 82875 Basophil percentageOrdered B y: Ryley Jeter on 12-15-2023 Chloride [Moles/Vol] 109 mmol/L 98-107 [facility] Glucose [Mass/Vol] 126 mg/dL 74-106 [facility] Comment on above: Fasting Glucose resu lt greater than or equal to 126 mg/dL suggests DIABETES MELLITUS per A.D.A. criteria. Potassium [Moles/Vol] 4.1 mmol/L 3.5-5.1 [facility] Sodium [Moles/Vol] 140 mmol/L 136-145 [facility] - Chemistry and C hemistry - challengeOrdered By: Ryley Jeter on 12-15-2023 CO2 [Moles/Vol] 29.0 mmol/L 21.0-32.0 [facility] Urea nitrogen/Creatinine [Mass ratio] 14.9 mg/mg 10-20 [facility] No Panel InformationOrdered By: Ryley Jeter on 12-15-2023 Estimated GFR (MDRD) Amer 45 mL/min >60 [facility] Comment on above: GFR Calc Estimated GFR (MDRD) Non-Af Amer 37 mL/min >60 [facility] Comment on above: Non- GFR Calc Serum or plasma calcium nikkie urement (mass/volume)Ordered By: Ryley Jeter on 12-15-2023 Calcium [Mass/Vol] 9.4 mg/dL 8.5-10.1 [facility] Serum or plasma creatinine m easurement (mass/volume)Ordered By: Ryley Jeter on 12-15-2023 Creatinine [Mass/Vol] 1.88 mg/dL 0.70-1.30 [facility] Comment on above: The validity of the calculated GFR & GFRAA in patients over 70 years has not been determined. Clinical correlation is essential. Serum or plasma urea nitroge n measurement (mass/volume)Ordered By: Ryley Jeter on 12-15-2023 Urea nitrogen [Mass/Vol] 28 mg/dL 7-18 [facility] Thin prep Papanicolaou smear with manual screeningOrdered By: Ryley Jeter on 12-15-2023 Thin prep Papanicolaou smear with manual screening 2 5-15 [facility] APTTOrdered By: Burton lr on 12-01-2023 aPTT Coag (Bld) [Time] 35 s High [facility] Basic metabolic 2000 panelon 12-01-2023 Anion gap [Moles/Vol] 10 mmol/L 10 - 2 0 mmol/L [facility] Calcium [Mass/Vol] 8.9 mg/dL 8.4 - 10. 2 mg/dL [facility] Chloride [Moles/Vol] 105 mmol/L 98 - 10 8 mmol/L [facility] Creatinine [Mass/Vol] 1.76 mg/dL High 0.80 - 1.30 mg/dL [facility] GFR/1.73 sq M.predicted CKD-EPI (S/P/Bld) [Vol rate/Area] 39 Low - PINF [facility] Glucose [Mass/Vol] 82 mg/dL 65 - 99 mg/dL [facility] HCO3 [Moles/Vol] 30 mmol/L 21 - 32 mmol/L [facility] Interpretation and review of laboratory results Abnormal [facility] Potassium [Moles/Vol] 3.4 mmol/L Low 3.5 - 5.1 mmol/L [facility] Sodium [Moles/Vol] 142 mmol/L 135 - 145 mmol/L [facility] Urea nitrogen [Mass/Vol] 26 mg/dL High 8 - 25 mg/d L [facility] Urea nitrogen/Creatinine [Mass ratio] 14.8 mg/mg 10.0 - 20.0 [facility] CBC Auto Differentialon 11-03 Basophils (Bld) [#/Vol] 0.06 10*3/uL [facility] Basophils/100 WBC (Bld) 0.7 % [facility] Eosinophils (Bld) [#/Vol] 0.61 10*3/uL High [facility] Eosinophils/100 WBC (Bld) 7.4 % [facility] Erythrocyte distribution width (RBC) [Entitic vol] 13.3 % 11.6 - 14.8 % [facility] Hematocrit (Bld) [Volume fraction] 36.6 % Low 41.0 - 53.0 % [facility] Hemoglobin (Bld) [Mass/Vol] 12.0 g/dL Low 13.5 - 17.5 g/dL [facility] Immature granulocytes (Bld) [#/Vol] 0.02 10*3/uL [facility] Immature granulocytes/100 WBC (Bld) 0.20 % [facility] Interpretation and review of laboratory results Abnormal [facility] Lymphocytes (Bld) [#/Vol] 1.32 10*3/uL [facility] Lymphocytes/100 WBC (Bld) 16.1 % [facility] MCH (RBC) [Entitic mass] 30.5 pg 26. 0 - 34.0 pg [facility] MCHC (RBC) [Mass/Vol] 32.8 g/dL 31.0 - 37.0 g/dL [facility] MCV (RBC) [Entitic vol] 92.9 fL 80.0 - 100.0 fL [facility] Monocytes (Bld) [#/Vol] 0.96 10*3/uL High [facility] Monocytes/100 WBC (Bld) 11.7 % [facility] Neutrophils (Bld) [#/Vol] 5.25 10*3/uL [facility] Neutrophils/100 WBC (Bld) 63.9 % [facility] Nucleated RBC (Bld) [#/Vol] 0.00 10*3/uL [facility] Nucleated RBC/100 WBC (Bld) [Ratio] 0.0 % [facility] Platelet mean volume (Bld) [Entitic vol] 12.4 fL 9.4 - 12.4 fL [facility] Platelets (Bld) [#/Vol] 115 10*3/uL Low [facility] RBC (Bld) [#/Vol] 3.94 10*6/uL Low [facility] WBC (Bld) [#/Vol] 8.22 10*3/uL [facility] Glucose (Bld) [Mass/Vol]on 0 12-01-2023 Glucose [Mass/Vol] 151 mg/dL High 65 - 99 mg/dL [facility] Interpretation and review of laboratory results Abnormal [facility] Glucose [Mass/Vol] 472 mg/dL Critically high 65 - 99 mg/d L [facility] Interpretation and review of laboratory results Abnormal [facility] Glucose [Mass/Vol] 454 mg/dL Critically high 65 - 99 mg/d L [facility] Interpretation and review of laboratory results Abnormal [facility] Glucose [Mass/Vol] 87 mg/dL 65 - 99 mg/dL [facility] Interpretation and review of laboratory results Normal [facility] Magnesium Levelon 12-01-2023 Magnesium [Mass/Vol] 2.1 mg/dL 1.6 - 2 .4 mg/dL [facility] Magnesium [Mass/Vol]on 12-01 Interpretation and review of laboratory results Normal [facility] aPTT Coag (Bld) [Time]Ordere d By: Burton Zendejas on 12-01-2023 Interpretation and review of laboratory results Abnormal [facility] APTTOrdered By: Zoila Marcano e on 11-30-2023 aPTT Coag (Bld) [Time] 35 s High [facility] Basic metabolic 2000 panelon 11-30-2023 Anion gap [Moles/Vol] 9 mmol/L Low 10 - 2 0 mmol/L [facility] Calcium [Mass/Vol] 8.6 mg/dL 8.4 - 10. 2 mg/dL [facility] Chloride [Moles/Vol] 104 mmol/L 98 - 10 8 mmol/L [facility] Creatinine [Mass/Vol] 1.77 mg/dL High 0.80 - 1.30 mg/dL [facility] GFR/1.73 sq M.predicted CKD-EPI (S/P/Bld) [Vol rate/Area] 39 Low - PINF [facility] Glucose [Mass/Vol] 322 mg/dL High 65 - 99 mg/dL [facility] HCO3 [Moles/Vol] 29 mmol/L 21 - 32 mmol/L [facility] Interpretation and review of laboratory results Abnormal [facility] Potassium [Moles/Vol] 3.8 mmol/L 3.5 - 5.1 mmol/L [facility] Sodium [Moles/Vol] 138 mmol/L 135 - 145 mmol/L [facility] Urea nitrogen [Mass/Vol] 30 mg/dL High 8 - 25 mg/d L [facility] Urea nitrogen/Creatinine [Mass ratio] 16.9 mg/mg 10.0 - 20.0 [facility] CBC Auto Differentialon 11-03 Basophils (Bld) [#/Vol] 0.08 10*3/uL [facility] Basophils/100 WBC (Bld) 0.9 % [facility] Eosinophils (Bld) [#/Vol] 0.71 10*3/uL High [facility] Eosinophils/100 WBC (Bld) 8.0 % [facility] Erythrocyte distribution width (RBC) [Entitic vol] 13.5 % 11.6 - 14.8 % [facility] Hematocrit (Bld) [Volume fraction] 35.9 % Low 41.0 - 53.0 % [facility] Hemoglobin (Bld) [Mass/Vol] 11.8 g/dL Low 13.5 - 17.5 g/dL [facility] Immature granulocytes (Bld) [#/Vol] 0.03 10*3/uL [facility] Immature granulocytes/100 WBC (Bld) 0.30 % [facility] Interpretation and review of laboratory results Abnormal [facility] Lymphocytes (Bld) [#/Vol] 1.18 10*3/uL [facility] Lymphocytes/100 WBC (Bld) 13.3 % [facility] MCH (RBC) [Entitic mass] 30.5 pg 26. 0 - 34.0 pg [facility] MCHC (RBC) [Mass/Vol] 32.9 g/dL 31.0 - 37.0 g/dL [facility] MCV (RBC) [Entitic vol] 92.8 fL 80.0 - 100.0 fL [facility] Monocytes (Bld) [#/Vol] 0.84 10*3/uL [facility] Monocytes/100 WBC (Bld) 9.4 % [facility] Neutrophils (Bld) [#/Vol] 6.05 10*3/uL [facility] Neutrophils/100 WBC (Bld) 68.1 % [facility] Nucleated RBC (Bld) [#/Vol] 0.00 10*3/uL [facility] Nucleated RBC/100 WBC (Bld) [Ratio] 0.0 % [facility] Platelet mean volume (Bld) [Entitic vol] 12.1 fL 9.4 - 12.4 fL [facility] Platelets (Bld) [#/Vol] 120 10*3/uL Low [facility] RBC (Bld) [#/Vol] 3.87 10*6/uL Low [facility] WBC (Bld) [#/Vol] 8.89 10*3/uL [facility] CT Chest WO contraston 11-30 GE RIS GE RIS [facility] CT Chest WO contrastOrdered By: Alice Kaminski on 11-30-2023 [facility] Work Phone: Echocardiogram completeon Aortic valve area 2.94847 cm [facility] AV mean gradient 3.56719 mmHg [facility] AV peak gradient 6.87804 mmHg [facility] EF 63.3016 % [facility] FUJI SYNAPSE CV [facility] Electrocardiogram, 12-leadon 11-30-2023 Atrial Rate 97 BPM [facility] P [place] 77 degrees [facility] P-R Interval 152 ms [facility] Q-T Interval 376 ms [facility] QRS Duration 76 ms [facility] QTC Calculation (Bezet) [address] [facility] R [place] 72 degrees [facility] T [place] 51 degrees [facility] Ventricular Rate 97 BPM [facility] th MUSE [facility] Glucose (Bld) [Mass/Vol]on 0 11-30-2023 Glucose [Mass/Vol] 190 mg/dL High 65 - 99 mg/dL [facility] Interpretation and review of laboratory results Abnormal [facility] Glucose [Mass/Vol] 103 mg/dL High 65 - 99 mg/dL [facility] Interpretation and review of laboratory results Abnormal [facility] Magnesium Levelon 11-30-2023 Magnesium [Mass/Vol] 2.2 mg/dL 1.6 - 2 .4 mg/dL [facility] Magnesium [Mass/Vol]on 11-30 Interpretation and review of laboratory results Normal [facility] No Panel Informationon 11-30 [facility] aPTT Coag (Bld) [Time]Ordere d By: Zoila Ruiz on 11-30-2023 Interpretation and review of laboratory results Abnormal [facility] APTTon 11-29-2023 aPTT Coag (Bld) [Time] 38 s High [facility] APTT Heparin Coverageon 11-02 aPTT Coag (Bld) [Time] 98 s High [facility] Interpretation and review of laboratory results Abnormal [facility] APTT Heparin CoverageOrdered By: Tania Escobedo on 11-29-2023 aPTT Coag (Bld) [Time] Critically high [facility] Interpretation and review of laboratory results Abnormal [facility] Bacteria identified Aer cx N om (Sput)Ordered By: Franco Armenta on 11-29-2023 Microscopic observation Gram stain Nom (Sput) Few WBC [facility] Microscopic observation Gram stain Nom (Sput) Few Epithelial Cells [facility] ealt Microscopic observation Gram stain Nom (Sput) Positive [facility] Microscopic observation Gram stain Nom (Sput) Rare [facility] Basic metabolic 2000 panelon 11-29-2023 Anion gap [Moles/Vol] 7 mmol/L Low 10 - 2 0 mmol/L [facility] Calcium [Mass/Vol] 8.4 mg/dL 8.4 - 10. 2 mg/dL [facility] Chloride [Moles/Vol] 106 mmol/L 98 - 10 8 mmol/L [facility] Creatinine [Mass/Vol] 1.91 mg/dL High 0.80 - 1.30 mg/dL [facility] GFR/1.73 sq M.predicted CKD-EPI (S/P/Bld) [Vol rate/Area] 35 Low - PINF [facility] Glucose [Mass/Vol] 234 mg/dL High 65 - 99 mg/dL [facility] HCO3 [Moles/Vol] 28 mmol/L 21 - 32 mmol/L [facility] Interpretation and review of laboratory results Abnormal [facility] Potassium [Moles/Vol] 4.0 mmol/L 3.5 - 5.1 mmol/L [facility] Sodium [Moles/Vol] 137 mmol/L 135 - 145 mmol/L [facility] Urea nitrogen [Mass/Vol] 34 mg/dL High 8 - 25 mg/d L [facility] Urea nitrogen/Creatinine [Mass ratio] 17.8 mg/mg 10.0 - 20.0 [facility] CBC Auto Differentialon 11-02 Basophils (Bld) [#/Vol] 0.10 10*3/uL [facility] Basophils/100 WBC (Bld) 0.9 % [facility] Eosinophils (Bld) [#/Vol] 0.48 10*3/uL [facility] Eosinophils/100 WBC (Bld) 4.4 % [facility] Erythrocyte distribution width (RBC) [Entitic vol] 14.0 % 11.6 - 14.8 % [facility] Hematocrit (Bld) [Volume fraction] 32.8 % Low 41.0 - 53.0 % [facility] Hemoglobin (Bld) [Mass/Vol] 10.7 g/dL Low 13.5 - 17.5 g/dL [facility] Immature granulocytes (Bld) [#/Vol] 0.05 10*3/uL [facility] Immature granulocytes/100 WBC (Bld) 0.50 % [facility] Interpretation and review of laboratory results Abnormal [facility] Lymphocytes (Bld) [#/Vol] 1.92 10*3/uL [facility] Lymphocytes/100 WBC (Bld) 17.7 % [facility] MCH (RBC) [Entitic mass] 30.6 pg 26. 0 - 34.0 pg [facility] MCHC (RBC) [Mass/Vol] 32.6 g/dL 31.0 - 37.0 g/dL [facility] MCV (RBC) [Entitic vol] 93.7 fL 80.0 - 100.0 fL [facility] Monocytes (Bld) [#/Vol] 1.02 10*3/uL High [facility] Monocytes/100 WBC (Bld) 9.4 % [facility] Neutrophils (Bld) [#/Vol] 7.26 10*3/uL High [facility] Neutrophils/100 WBC (Bld) 67.1 % [facility] Nucleated RBC (Bld) [#/Vol] 0.00 10*3/uL [facility] Nucleated RBC/100 WBC (Bld) [Ratio] 0.0 % [facility] Platelet mean volume (Bld) [Entitic vol] 12.1 fL 9.4 - 12.4 fL [facility] Platelets (Bld) [#/Vol] 130 10*3/uL Low [facility] RBC (Bld) [#/Vol] 3.50 10*6/uL Low [facility] WBC (Bld) [#/Vol] 10.83 10*3/uL [facility] CT Chest WO contraston 11-29 Radiology Study observation (narrative) [facility] Glucose (Bld) [Mass/Vol]on 0 11-29-2023 Glucose [Mass/Vol] 174 mg/dL High 65 - 99 mg/dL [facility] Interpretation and review of laboratory results Abnormal [facility] Glucose [Mass/Vol] 266 mg/dL High 65 - 99 mg/dL [facility] Interpretation and review of laboratory results Abnormal [facility] HbA1c (Bld) [Mass fraction]O rdered By: Lidia Ruff on 11-29-2023 Average glucose Estimated from glycated hemoglobin (Bld) [Mass/Vol] 174 mg/dL High 68 - 114 mg/dL [facility] Interpretation and review of laboratory results Abnormal [facility] Hemoglobin [id number] By: Davina Ruff on 11-29-2023 HbA1c (Bld) [Mass fraction] 7.7 % High 4.0 - 5.6 % [facility] Magnesium Levelon 11-29-2023 Magnesium [Mass/Vol] 2.2 mg/dL 1.6 - 2 .4 mg/dL [facility] Magnesium [Mass/Vol]on 11-29 Interpretation and review of laboratory results Normal [facility] No Panel Informationon 11-29 [facility] Sputum Aerobic CultureOrdere d By: Franco Armenta on 11-29-2023 Bacteria identified Aer cx Nom (Sput) Normal [place] After 48 Hours [facility] aPTT Coag (Bld) [Time]on Interpretation and review of laboratory results Abnormal [facility] APTTon 11-28-2023 aPTT Coag (Bld) [Time] 102 s High [facility] Basic metabolic 2000 panelon 11-28-2023 Anion gap [Moles/Vol] 13 mmol/L 10 - 2 0 mmol/L [facility] Calcium [Mass/Vol] 9.0 mg/dL 8.4 - 10. 2 mg/dL [facility] Chloride [Moles/Vol] 110 mmol/L High 98 - 10 8 mmol/L [facility] Creatinine [Mass/Vol] 1.99 mg/dL High 0.80 - 1.30 mg/dL [facility] GFR/1.73 sq M.predicted CKD-EPI (S/P/Bld) [Vol rate/Area] 34 Low - PINF [facility] Glucose [Mass/Vol] 183 mg/dL High 65 - 99 mg/dL [facility] HCO3 [Moles/Vol] 23 mmol/L 21 - 32 mmol/L [facility] Interpretation and review of laboratory results Abnormal [facility] Potassium [Moles/Vol] 4.3 mmol/L 3.5 - 5.1 mmol/L [facility] Sodium [Moles/Vol] 142 mmol/L 135 - 145 mmol/L [facility] Urea nitrogen [Mass/Vol] 33 mg/dL High 8 - 25 mg/d L [facility] Urea nitrogen/Creatinine [Mass ratio] 16.6 mg/mg 10.0 - 20.0 [facility] Anion gap [Moles/Vol] 9 mmol/L Low 10 - 2 0 mmol/L [facility] Calcium [Mass/Vol] 8.8 mg/dL 8.4 - 10. 2 mg/dL [facility] Chloride [Moles/Vol] 111 mmol/L High 98 - 10 8 mmol/L [facility] Creatinine [Mass/Vol] 2.03 mg/dL High 0.80 - 1.30 mg/dL [facility] GFR/1.73 sq M.predicted CKD-EPI (S/P/Bld) [Vol rate/Area] 33 Low - PINF [facility] Glucose [Mass/Vol] 160 mg/dL High 65 - 99 mg/dL [facility] HCO3 [Moles/Vol] 27 mmol/L 21 - 32 mmol/L [facility] Interpretation and review of laboratory results Abnormal [facility] Potassium [Moles/Vol] 4.3 mmol/L 3.5 - 5.1 mmol/L [facility] Sodium [Moles/Vol] 143 mmol/L 135 - 145 mmol/L [facility] Urea nitrogen [Mass/Vol] 34 mg/dL High 8 - 25 mg/d L [facility] Urea nitrogen/Creatinine [Mass ratio] 16.7 mg/mg 10.0 - 20.0 [facility] Anion gap [Moles/Vol] 10 mmol/L 10 - 2 0 mmol/L [facility] Calcium [Mass/Vol] 8.7 mg/dL 8.4 - 10. 2 mg/dL [facility] Chloride [Moles/Vol] 112 mmol/L High 98 - 10 8 mmol/L [facility] Creatinine [Mass/Vol] 2.03 mg/dL High 0.80 - 1.30 mg/dL [facility] GFR/1.73 sq M.predicted CKD-EPI (S/P/Bld) [Vol rate/Area] 33 Low - PINF [facility] Glucose [Mass/Vol] 119 mg/dL High 65 - 99 mg/dL [facility] HCO3 [Moles/Vol] 24 mmol/L 21 - 32 mmol/L [facility] Interpretation and review of laboratory results Abnormal [facility] Potassium [Moles/Vol] 3.9 mmol/L 3.5 - 5.1 mmol/L [facility] Sodium [Moles/Vol] 142 mmol/L 135 - 145 mmol/L [facility] Urea nitrogen [Mass/Vol] 35 mg/dL High 8 - 25 mg/d L [facility] Urea nitrogen/Creatinine [Mass ratio] 17.2 mg/mg 10.0 - 20.0 [facility] Beta hydroxybutyrate [Moles/ Vol]on 11-28-2023 Interpretation and review of laboratory results Abnormal [facility] Interpretation and review of laboratory results Abnormal [facility] Beta-Hydroxybutyrateon 11-28 Beta hydroxybutyrate [Moles/Vol] 0.8 mmol/L High 0.0 - 0.3 mmol/L [facility] Beta hydroxybutyrate [Moles/Vol] 0.4 mmol/L High 0.0 - 0.3 mmol/L [facility] Beta hydroxybutyrate [Moles/Vol] 0.6 mmol/L High 0.0 - 0.3 mmol/L [facility] CBC Auto Differentialon 11-02 Basophils (Bld) [#/Vol] 0.07 10*3/uL [facility] Basophils/100 WBC (Bld) 0.5 % [facility] Eosinophils (Bld) [#/Vol] 0.09 10*3/uL [facility] Eosinophils/100 WBC (Bld) 0.6 % [facility] Erythrocyte distribution width (RBC) [Entitic vol] 14.3 % 11.6 - 14.8 % [facility] Hematocrit (Bld) [Volume fraction] 33.6 % Low 41.0 - 53.0 % [facility] Hemoglobin (Bld) [Mass/Vol] 10.8 g/dL Low 13.5 - 17.5 g/dL [facility] Immature granulocytes (Bld) [#/Vol] 0.05 10*3/uL [facility] Immature granulocytes/100 WBC (Bld) 0.40 % [facility] Interpretation and review of laboratory results Abnormal [facility] Lymphocytes (Bld) [#/Vol] 2.69 10*3/uL [facility] Lymphocytes/100 WBC (Bld) 18.9 % [facility] MCH (RBC) [Entitic mass] 30.4 pg 26. 0 - 34.0 pg [facility] MCHC (RBC) [Mass/Vol] 32.1 g/dL 31.0 - 37.0 g/dL [facility] MCV (RBC) [Entitic vol] 94.6 fL 80.0 - 100.0 fL [facility] Monocytes (Bld) [#/Vol] 1.26 10*3/uL High [facility] Monocytes/100 WBC (Bld) 8.9 % [facility] Neutrophils (Bld) [#/Vol] 10.06 10*3/uL High [facility] Neutrophils/100 WBC (Bld) 70.7 % [facility] Nucleated RBC (Bld) [#/Vol] 0.00 10*3/uL [facility] Nucleated RBC/100 WBC (Bld) [Ratio] 0.0 % [facility] Platelet mean volume (Bld) [Entitic vol] 11.9 fL 9.4 - 12.4 fL [facility] Platelets (Bld) [#/Vol] 151 10*3/uL [facility] RBC (Bld) [#/Vol] 3.55 10*6/uL [facility] WBC (Bld) [#/Vol] 14.22 10*3/uL High [facility] CRP [Mass/Vol]on 11-28-2023 Interpretation and review of laboratory results Abnormal [facility] CRP, Inflammationon 11-28-19 CRP [Mass/Vol] 11.6 mg/L High NINF - 10.0 mg/L [facility] D-Dimer, Quantitativeon 11-02 Fibrin D-dimer FEU (PPP) [Mass/Vol] 1.32 High [facility] Interpretation and review of laboratory results Abnormal [facility] Glucose (Bld) [Mass/Vol]on 0 11-28-2023 Glucose [Mass/Vol] 222 mg/dL High 65 - 99 mg/dL [facility] Interpretation and review of laboratory results Abnormal [facility] Glucose [Mass/Vol] 182 mg/dL High 65 - 99 mg/dL [facility] Interpretation and review of laboratory results Abnormal [facility] Glucose [Mass/Vol] 286 mg/dL High 65 - 99 mg/dL [facility] Interpretation and review of laboratory results Abnormal [facility] Glucose [Mass/Vol] 209 mg/dL High 65 - 99 mg/dL [facility] Interpretation and review of laboratory results Abnormal [facility] Glucose [Mass/Vol] 167 mg/dL High 65 - 99 mg/dL [facility] Interpretation and review of laboratory results Abnormal [facility] LDHon 11-28-2023 LDH Lactate to pyruvate reaction [Catalytic activity/Vol] 299 U/L High 100 - 250 U/L [facility] Magnesium Levelon 11-28-2023 Magnesium [Mass/Vol] 2.5 mg/dL High 1.6 - 2 .4 mg/dL [facility] Magnesium [Mass/Vol] 2.6 mg/dL High 1.6 - 2 .4 mg/dL [facility] Magnesium [Mass/Vol] 2.2 mg/dL 1.6 - 2 .4 mg/dL [facility] Magnesium [Mass/Vol]on 11-28 Interpretation and review of laboratory results Abnormal [facility] Interpretation and review of laboratory results Abnormal [facility] Interpretation and review of laboratory results Normal [facility] No Panel Informationon 11-28 Interpretation and review of laboratory results Abnormal [facility] Phosphate [Mass/Vol]on 11-28 Interpretation and review of laboratory results Normal [facility] Interpretation and review of laboratory results Abnormal [facility] Interpretation and review of laboratory results Abnormal [facility] Phosphoruson 11-28-2023 Phosphate [Mass/Vol] 3.6 mg/dL 2.3 - 3 .7 mg/dL [facility] Phosphate [Mass/Vol] 3.8 mg/dL High 2.3 - 3 .7 mg/dL [facility] Phosphate [Mass/Vol] 3.8 mg/dL High 2.3 - 3 .7 mg/dL [facility] aPTT Coag (Bld) [Time]on Interpretation and review of laboratory results Abnormal [facility] APTTOrdered By: Becky Mercado on 11-27-2023 aPTT Coag (Bld) [Time] 78 s High [facility] APTTOrdered By: Anjali Hartmann on 11-27-2023 aPTT Coag (Bld) [Time] 66 s High [facility] APTT Heparin CoverageOrdered By: Yesenia Cardona on 11-27-2023 aPTT Coag (Bld) [Time] 87 s High [facility] Interpretation and review of laboratory results Abnormal [facility] Basic metabolic 2000 panelon 11-27-2023 Anion gap [Moles/Vol] 9 mmol/L Low 10 - 2 0 mmol/L [facility] Calcium [Mass/Vol] 8.7 mg/dL 8.4 - 10. 2 mg/dL [facility] Chloride [Moles/Vol] 113 mmol/L High 98 - 10 8 mmol/L [facility] Creatinine [Mass/Vol] 2.24 mg/dL High 0.80 - 1.30 mg/dL [facility] GFR/1.73 sq M.predicted CKD-EPI (S/P/Bld) [Vol rate/Area] 29 Low - PINF [facility] Glucose [Mass/Vol] 168 mg/dL High 65 - 99 mg/dL [facility] HCO3 [Moles/Vol] 25 mmol/L 21 - 32 mmol/L [facility] Interpretation and review of laboratory results Abnormal [facility] Potassium [Moles/Vol] 3.7 mmol/L 3.5 - 5.1 mmol/L [facility] Sodium [Moles/Vol] 143 mmol/L 135 - 145 mmol/L [facility] Urea nitrogen [Mass/Vol] 37 mg/dL High 8 - 25 mg/d L [facility] Urea nitrogen/Creatinine [Mass ratio] 16.5 mg/mg 10.0 - 20.0 [facility] Anion gap [Moles/Vol] 9 mmol/L Low 10 - 2 0 mmol/L [facility] Calcium [Mass/Vol] 9.0 mg/dL 8.4 - 10. 2 mg/dL [facility] Chloride [Moles/Vol] 113 mmol/L High 98 - 10 8 mmol/L [facility] Creatinine [Mass/Vol] 2.24 mg/dL High 0.80 - 1.30 mg/dL [facility] GFR/1.73 sq M.predicted CKD-EPI (S/P/Bld) [Vol rate/Area] 29 Low - PINF [facility] Glucose [Mass/Vol] 153 mg/dL High 65 - 99 mg/dL [facility] HCO3 [Moles/Vol] 24 mmol/L 21 - 32 mmol/L [facility] Interpretation and review of laboratory results Abnormal [facility] Potassium [Moles/Vol] 4.0 mmol/L 3.5 - 5.1 mmol/L [facility] Sodium [Moles/Vol] 142 mmol/L 135 - 145 mmol/L [facility] Urea nitrogen [Mass/Vol] 39 mg/dL High 8 - 25 mg/d L [facility] Urea nitrogen/Creatinine [Mass ratio] 17.4 mg/mg 10.0 - 20.0 [facility] Anion gap [Moles/Vol] 13 mmol/L 10 - 2 0 mmol/L [facility] Calcium [Mass/Vol] 9.3 mg/dL 8.4 - 10. 2 mg/dL [facility] Chloride [Moles/Vol] 112 mmol/L High 98 - 10 8 mmol/L [facility] Creatinine [Mass/Vol] 2.26 mg/dL High 0.80 - 1.30 mg/dL [facility] GFR/1.73 sq M.predicted CKD-EPI (S/P/Bld) [Vol rate/Area] 29 Low - PINF [facility] Glucose [Mass/Vol] 114 mg/dL High 65 - 99 mg/dL [facility] HCO3 [Moles/Vol] 23 mmol/L 21 - 32 mmol/L [facility] Interpretation and review of laboratory results Abnormal [facility] Potassium [Moles/Vol] 3.7 mmol/L 3.5 - 5.1 mmol/L [facility] Sodium [Moles/Vol] 144 mmol/L 135 - 145 mmol/L [facility] Urea nitrogen [Mass/Vol] 42 mg/dL High 8 - 25 mg/d L [facility] Urea nitrogen/Creatinine [Mass ratio] 18.6 mg/mg 10.0 - 20.0 [facility] Anion gap [Moles/Vol] 13 mmol/L 10 - 2 0 mmol/L [facility] Calcium [Mass/Vol] 9.2 mg/dL 8.4 - 10. 2 mg/dL [facility] Chloride [Moles/Vol] 111 mmol/L High 98 - 10 8 mmol/L [facility] Creatinine [Mass/Vol] 2.35 mg/dL High 0.80 - 1.30 mg/dL [facility] GFR/1.73 sq M.predicted CKD-EPI (S/P/Bld) [Vol rate/Area] 27 Low - PINF [facility] Glucose [Mass/Vol] 340 mg/dL High 65 - 99 mg/dL [facility] HCO3 [Moles/Vol] 21 mmol/L 21 - 32 mmol/L [facility] Interpretation and review of laboratory results Abnormal [facility] Potassium [Moles/Vol] 3.4 mmol/L Low 3.5 - 5.1 mmol/L [facility] Sodium [Moles/Vol] 142 mmol/L 135 - 145 mmol/L [facility] Urea nitrogen [Mass/Vol] 42 mg/dL High 8 - 25 mg/d L [facility] Urea nitrogen/Creatinine [Mass ratio] 17.9 mg/mg 10.0 - 20.0 [facility] Basic metabolic 2000 panelOr dered By: Moody Hughes on 11-27-2023 Anion gap [Moles/Vol] 13 mmol/L 10 - 2 0 mmol/L [facility] Calcium [Mass/Vol] 8.9 mg/dL 8.4 - 10. 2 mg/dL [facility] Chloride [Moles/Vol] 107 mmol/L 98 - 10 8 mmol/L [facility] Creatinine [Mass/Vol] 2.24 mg/dL High 0.80 - 1.30 mg/dL [facility] GFR/1.73 sq M.predicted CKD-EPI (S/P/Bld) [Vol rate/Area] 29 Low - PINF [facility] Glucose [Mass/Vol] 523 mg/dL Critically high 65 - 99 mg/d L [facility] HCO3 [Moles/Vol] 21 mmol/L 21 - 32 mmol/L [facility] Interpretation and review of laboratory results Abnormal [facility] Potassium [Moles/Vol] 4.6 mmol/L 3.5 - 5.1 mmol/L [facility] Sodium [Moles/Vol] 136 mmol/L 135 - 145 mmol/L [facility] Urea nitrogen [Mass/Vol] 42 mg/dL High 8 - 25 mg/d L [facility] Urea nitrogen/Creatinine [Mass ratio] 18.8 mg/mg 10.0 - 20.0 [facility] Beta hydroxybutyrate [Moles/ Vol]on 11-27-2023 Interpretation and review of laboratory results Normal [facility] Interpretation and review of laboratory results Normal [facility] Interpretation and review of laboratory results Normal [facility] Interpretation and review of laboratory results Normal [facility] Beta-Hydroxybutyrateon 11-27 Beta hydroxybutyrate [Moles/Vol] mmol/L 0.0 - 0.3 mmol/L [facility] Beta hydroxybutyrate [Moles/Vol] 0.2 mmol/L 0.0 - 0.3 mmol/L [facility] Beta hydroxybutyrate [Moles/Vol] mmol/L 0.0 - 0.3 mmol/L [facility] Beta hydroxybutyrate [Moles/Vol] 0.2 mmol/L 0.0 - 0.3 mmol/L [facility] Beta hydroxybutyrate [Moles/Vol] 1.9 mmol/L High 0.0 - 0.3 mmol/L [facility] CBC Auto Differentialon 11-02 Basophils (Bld) [#/Vol] 0.04 10*3/uL [facility] Basophils/100 WBC (Bld) 0.2 [facility] E[facility] [#/Vol] 0.00 10*3/uL [facility] Eosinophils/100 WBC (Bld) 0.0 % [facility] Erythrocyte distribution width (RBC) [Entitic vol] 14.0 % 11.6 - 14.8 % [facility] Hematocrit (Bld) [Volume fraction] 34.0 % Low 41.0 - 53.0 % [facility] Hemoglobin (Bld) [Mass/Vol] 11.1 g/dL Low 13.5 - 17.5 g/dL [facility] Immature granulocytes (Bld) [#/Vol] 0.11 10*3/uL [facility] Immature granulocytes/100 WBC (Bld) 0.50 % [facility] Interpretation and review of laboratory results Abnormal [facility] Lymphocytes (Bld) [#/Vol] 0.91 10*3/uL [facility] Lymphocytes/100 WBC (Bld) 3.8 % [facility] MCH (RBC) [Entitic mass] 30.9 pg 26. 0 - 34.0 pg [facility] MCHC (RBC) [Mass/Vol] 32.6 g/dL 31.0 - 37.0 g/dL [facility] MCV (RBC) [Entitic vol] 94.7 fL 80.0 - 100.0 fL [facility] Monocytes (Bld) [#/Vol] 1.21 10*3/uL [facility] Monocytes/100 WBC (Bld) 5.1 % [facility] Neutrophils (Bld) [#/Vol] 21.42 10*3/uL [facility] Neutrophils/100 WBC (Bld) 90.4 % [facility] Nucleated RBC (Bld) [#/Vol] 0.00 10*3/uL [facility] Nucleated RBC/100 WBC (Bld) [Ratio] 0.0 % [facility] Platelet mean volume (Bld) [Entitic vol] 11.9 fL 9.4 - 12.4 fL [facility] Platelets (Bld) [#/Vol] 220 10*3/uL [facility] RBC (Bld) [#/Vol] 3.59 10*6/uL [facility] WBC (Bld) [#/Vol] 23.69 10*3/uL [facility] CRP [Mass/Vol]on 11-27-2023 Interpretation and review of laboratory results Normal [facility] CRP, Inflammationon 11-27-19 24 CRP [Mass/Vol] mg/L NINF - 10.0 mg/L [facility] Clostridium difficile Testin gOrdered By: Nina Martinez on 11-27-2023 C. difficile Interpretation Negative [facility] Specimen Acceptability Acceptable Oh [facility] ESR Westergren method (Bld) [Velocity]on 11-27-2023 ESR (Bld) [Velocity] 21 mm/h [facility] Interpretation and review of laboratory results Abnormal [facility] Glucose (Bld) [Mass/Vol]on 0 11-27-2023 Glucose [Mass/Vol] 85 mg/dL 65 - 99 mg/dL [facility] Interpretation and review of laboratory results Normal [facility] Glucose [Mass/Vol] 106 mg/dL High 65 - 99 mg/dL [facility] Interpretation and review of laboratory results Abnormal [facility] Glucose [Mass/Vol] 179 mg/dL High 65 - 99 mg/dL [facility] Interpretation and review of laboratory results Abnormal [facility] Glucose [Mass/Vol] 255 mg/dL High 65 - 99 mg/dL [facility] Interpretation and review of laboratory results Abnormal [facility] Glucose [Mass/Vol] 252 mg/dL High 65 - 99 mg/dL [facility] Interpretation and review of laboratory results Abnormal [facility] Glucose [Mass/Vol] 145 mg/dL High 65 - 99 mg/dL [facility] Interpretation and review of laboratory results Abnormal [facility] Glucose [Mass/Vol] 155 mg/dL High 65 - 99 mg/dL [facility] Interpretation and review of laboratory results Abnormal [facility] Glucose [Mass/Vol] 155 mg/dL High 65 - 99 mg/dL [facility] Interpretation and review of laboratory results Abnormal [facility] Glucose [Mass/Vol] 143 mg/dL High 65 - 99 mg/dL [facility] Interpretation and review of laboratory results Abnormal [facility] Glucose [Mass/Vol] 123 mg/dL High 65 - 99 mg/dL [facility] Interpretation and review of laboratory results Abnormal [facility] Glucose [Mass/Vol] 132 mg/dL High 65 - 99 mg/dL [facility] Interpretation and review of laboratory results Abnormal [facility] Glucose [Mass/Vol] 202 mg/dL High 65 - 99 mg/dL [facility] Interpretation and review of laboratory results Abnormal [facility] Glucose [Mass/Vol] 318 mg/dL High 65 - 99 mg/dL [facility] Interpretation and review of laboratory results Abnormal [facility] Glucose [Mass/Vol] 365 mg/dL High 65 - 99 mg/dL [facility] Interpretation and review of laboratory results Abnormal [facility] Glucose [Mass/Vol] 453 mg/dL Critically high 65 - 99 mg/d L [facility] Interpretation and review of laboratory results Abnormal [facility] Glucose [Mass/Vol] mg/dL Critically high 65 - 99 mg/d L [facility] Interpretation and review of laboratory results Abnormal [facility] Glucose [Mass/Vol] mg/dL Critically high 65 - 99 mg/d L [facility] Interpretation and review of laboratory results Abnormal [facility] Glucose [Mass/Vol] 498 mg/dL Critically high 65 - 99 mg/d L [facility] Interpretation and review of laboratory results Abnormal [facility] Green Topon 11-27-2023 Extra Tube Hold for add-ons. [facility] Comment on above: Auto resulted. [facility] HbA1c (Bld) [Mass fraction]O rdered By: Brent Carrillo on 11-27-2023 Average glucose Estimated from glycated hemoglobin (Bld) [Mass/Vol] 169 mg/dL High 68 - 114 mg/dL [facility] Interpretation and review of laboratory results Abnormal [facility] Hemoglobin [id number] By: Damaris Carrillo on 11-27-2023 HbA1c (Bld) [Mass fraction] 7.5 % High 4.0 - 5.6 % [facility] Hepatic function 2000 panelo n 11-27-2023 Albumin [Mass/Vol] 3.4 g/dL 3.2 - 5.2 g/dL [facility] ALP [Catalytic activity/Vol] 97 U/L 40 - 150 U/L [facility] ALT [Catalytic activity/Vol] 47 U/L 14 - 65 U/L [facility] AST [Catalytic activity/Vol] 74 U/L High 0-50 U/L [facility] Bilirubin [Mass/Vol] 0.7 mg/dL 0.0 - 1 .3 mg/dL [facility] Bilirubin.conjugated [Mass/Vol] 0.2 mg/dL 0.0 - 0.4 mg/dL [facility] Protein [Mass/Vol] 6.3 g/dL 6.0 - 8.0 g/dL [facility] Influenza virus A and B RNA and SARS-CoV-2 (COVID-19) N gene panel ALICE+probe (Resp)Ordered By: Esthela Albright on 11-27-2023 FLUAV RNA ALICE+probe Ql (Unsp spec) Not detected Not Detected [facility] FLUBV RNA ALICE+probe Ql (Unsp spec) Not detected Not Detected [facility] Interpretation and review of laboratory results Abnormal [facility] SARS-CoV-2 (COVID-19) RNA ALICE+probe Ql (Resp) Detected Abnormal Not Detected [facility] Lactate [Moles/Vol]on 2023 Interpretation and review of laboratory results Abnormal [facility] Interpretation and review of laboratory results Normal [facility] Lactic Acid, Plasmaon 2023 Lactate [Moles/Vol] 2.8 mmol/L High 0.6 - 2. 0 mmol/L [facility] Lactate [Moles/Vol] 2.0 mmol/L 0.6 - 2. 0 mmol/L [facility] Legionella Antigen, Urineon 11-27-2023 Interpretation and review of laboratory results Normal [facility] L. pneumophila Ag Ql (U) Negative Neg ative for Legionella antigen [facility] Lipid 1996 panelon Cholesterol [Mass/Vol] 130 mg/dL 100 - 199 mg/dL [facility] Cholesterol in HDL [Mass/Vol] 56 mg/dL 40 - 59 mg/dL [facility] Cholesterol in LDL [Mass/Vol] 61 mg/dL 10 - 130 mg/dL [facility] Cholesterol non HDL [Mass/Vol] 74 mg/dL [facility] Cholesterol.total/Cholest santos in HDL [Mass ratio] 2.3 {ratio} ratio [facility] Triglyceride [Mass/Vol] 67 mg/dL 30 - 150 mg/dL [facility] MRSA DNA Amplified Probeon 0 11-27-2023 MRSA DNA ALICE+probe Ql (Unsp spec) Negative Not Detected, MRSA NEGATIVE [facility] MRSA DNA ALICE+probe Ql (Unsp spec)on 11-27-2023 Interpretation and review of laboratory results Normal [facility] Magnesium Levelon 11-27-2023 Magnesium [Mass/Vol] 1.9 mg/dL 1.6 - 2 .4 mg/dL [facility] Magnesium [Mass/Vol] 2.2 mg/dL 1.6 - 2 .4 mg/dL [facility] Magnesium [Mass/Vol] 2.1 mg/dL 1.6 - 2 .4 mg/dL [facility] Magnesium [Mass/Vol] 2.1 mg/dL 1.6 - 2 .4 mg/dL [facility] Magnesium [Mass/Vol] 2.2 mg/dL 1.6 - 2 .4 mg/dL [facility] Magnesium [Mass/Vol]on 11-27 Interpretation and review of laboratory results Normal [facility] Interpretation and review of laboratory results Normal [facility] Interpretation and review of laboratory results Normal [facility] Interpretation and review of laboratory results Normal [facility] Interpretation and review of laboratory results Normal [facility] NT Pro BNPon 11-27-2023 Natriuretic peptide.B prohormone N-Terminal [Mass/Vol] 65338 pg/mL High 0 - 300 pg/mL [facility] Natriuretic peptide.B prohor katja N-Terminal [Mass/Vol]on 11-27-2023 Interpretation and review of laboratory results Abnormal [facility] [facility] No Panel Informationon 11-27 [facility] Interpretation and review of laboratory results Abnormal [facility] Obtain venous blood gases an d performon 11-27-2023 [facility] POC Arterial Blood Gas Panel -Pulmon 11-27-2023 Alveolar-arterial oxygen Partial pressure difference 85.4 mm Hg [facility] Base excess Calc (Bld) [Moles/Vol] -7.1000 mmol/L Low -2.0 - 2.0 [facility] Calcium.ionized [Mass/Vol] 4.7 mg/dL 4.5 - 5.3 mg/dL [facility] Carboxyhemoglobin (BldA) [Mass fraction] 1.3 NINF [facility] Chloride [Moles/Vol] 107 mmol/L 98 - 10 8 mmol/L [facility] CO2 (Bld) [Partial pressure] 31.7 mm[Hg] Low [facility] Glucose post fast [Mass/Vol] 543 mg/dL Critically high 65 - 99 mg/dL [facility] HCO3 (Bld) [Moles/Vol] 17.5 mmol/L Low 22.0 - 26.0 mmol/L [facility] Hematocrit (BldA) [Volume fraction] 37.9 % Low 41.0 - 53.0 % [facility] Hemoglobin (Bld) [Mass/Vol] 12.4 g/dL Low 13.5 - 17.5 g/dL [facility] Inhaled oxygen concentration 30 % [facility] Interpretation and review of laboratory results Abnormal [facility] Lactate [Moles/Vol] 1.7 mmol/L 0.6 - 2. 0 mmol/L [facility] Methemoglobin (BldA) [Mass fraction] % 0.0 - 2.0 % [facility] Oxygen (Bld) [Partial pressure] 84 mm[Hg] [facility] Oxyhemoglobin (BldA) [Mass fraction] 94.5 % 94.0 - 98.0 % [facility] pH (Bld) 7.35 [pH] 7.35 - 7.45 [facility] Potassium [Moles/Vol] 4.6 mmol/L 3.5 - 5.1 mmol/L [facility] Sodium [Moles/Vol] 138 mmol/L 135 - 145 mmol/L [facility] Specimen source Nom (Unsp spec) Radial, right [facility] POC Venous Blood Gas Panel-P ulmon 11-27-2023 Base excess Calc (BldV) [Moles/Vol] -8.4000 mmol/L Low -2.0 - 2.0 [facility] Calcium.ionized [Mass/Vol] 4.4 mg/dL Low 4.5 - 5.3 mg/dL [facility] Carboxyhemoglobin (BldA) [Mass fraction] 2.9 High [facility] Chloride [Moles/Vol] 108 mmol/L 98 - 10 8 mmol/L [facility] CO2 (BldV) [Partial pressure] 26.6 mm[Hg] Low [facility] Glucose post fast [Mass/Vol] 544 mg/dL Critically high 65 - 99 mg/dL [facility] HCO3 (Bld) [Moles/Vol] 15.4 mmol/L Low 24.0 - 28.0 mmol/L [facility] Hematocrit (BldA) [Volume fraction] 36.5 % Low 41.0 - 53.0 % [facility] Hemoglobin (Bld) [Mass/Vol] 11.9 g/dL Low 13.5 - 17.5 g/dL [facility] Inhaled oxygen concentration 30 % [facility] Interpretation and review of laboratory results Abnormal [facility] Lactate [Moles/Vol] 2.5 mmol/L High 0.6 - 2. 0 mmol/L [facility] Methemoglobin (BldA) [Mass fraction] % 0.0 - 2.0 % [facility] Oxygen (BldV) [Partial pressure] 140 mm[Hg] High [facility] Oxygen saturation in Venous blood 99.4 % High 40.0 - 70.0 % [facility] Oxyhemoglobin (BldA) [Mass fraction] 96.3 % No established reference range [facility] pH (BldV) 7.37 [pH] 7.32 - 7.42 [facility] Potassium [Moles/Vol] 4.0 mmol/L 3.5 - 5.1 mmol/L [facility] Sodium [Moles/Vol] 138 mmol/L 135 - 145 mmol/L [facility] Specimen source Nom (Unsp spec) Not specified [facility] Base excess Calc (BldV) [Moles/Vol] -5.8000 mmol/L Low -2.0 - 2.0 [facility] Calcium.ionized [Mass/Vol] 4.7 mg/dL 4.5 - 5.3 mg/dL [facility] Carboxyhemoglobin (BldA) [Mass fraction] 2.9 High [facility] Chloride [Moles/Vol] 107 mmol/L 98 - 10 8 mmol/L [facility] CO2 (BldV) [Partial pressure] 34.1 mm[Hg] Low [facility] Glucose post fast [Mass/Vol] 493 mg/dL Critically high 65 - 99 mg/dL [facility] HCO3 (Bld) [Moles/Vol] 19.0 mmol/L Low 24.0 - 28.0 mmol/L [facility] Hematocrit (BldA) [Volume fraction] 35.4 % Low 41.0 - 53.0 % [facility] Hemoglobin (Bld) [Mass/Vol] 11.5 g/dL Low 13.5 - 17.5 g/dL [facility] Inhaled oxygen concentration 28 % [facility] Inhaled oxygen flow rate 2 L/min [facility] Interpretation and review of laboratory results Abnormal [facility] Lactate [Moles/Vol] 1.8 mmol/L 0.6 - 2. 0 mmol/L [facility] Methemoglobin (BldA) [Mass fraction] % 0.0 - 2.0 % [facility] Oxygen (BldV) [Partial pressure] 63 mm[Hg] High [facility] Oxygen saturation in Venous blood 91.7 % High 40.0 - 70.0 % [facility] Oxyhemoglobin (BldA) [Mass fraction] 88.7 % No established reference range [facility] pH (BldV) 7.36 [pH] 7.32 - 7.42 [facility] Potassium [Moles/Vol] 4.7 mmol/L 3.5 - 5.1 mmol/L [facility] Sodium [Moles/Vol] 138 mmol/L 135 - 145 mmol/L [facility] Specimen source Nom (Unsp spec) Not specified [facility] Phosphate [Mass/Vol]on 11-27 Interpretation and review of laboratory results Normal [facility] Interpretation and review of laboratory results Abnormal [facility] Interpretation and review of laboratory results Normal [facility] Interpretation and review of laboratory results Normal [facility] Interpretation and review of laboratory results Abnormal [facility] Phosphoruson 11-27-2023 Phosphate [Mass/Vol] 2.6 mg/dL 2.3 - 3 .7 mg/dL [facility] Phosphate [Mass/Vol] 4.1 mg/dL High 2.3 - 3 .7 mg/dL [facility] Phosphate [Mass/Vol] 3.0 mg/dL 2.3 - 3 .7 mg/dL [facility] Phosphate [Mass/Vol] 2.3 mg/dL 2.3 - 3 .7 mg/dL [facility] Phosphate [Mass/Vol] 4.1 mg/dL High 2.3 - 3 .7 mg/dL [facility] Reflex Lactic Acid, Plasmaon 11-27-2023 Interpretation and review of laboratory results Normal [facility] Lactate [Moles/Vol] 2.0 mmol/L 0.6 - 2. 0 mmol/L [facility] Interpretation and review of laboratory results Abnormal [facility] Lactate [Moles/Vol] 2.8 mmol/L High 0.6 - 2. 0 mmol/L [facility] Respiratory pathogens DNA an d RNA panel ALICE+non-probe (Nph)Ordered By: Melania Freeman on 11-27-2023 Adenovirus DNA ALICE+non-probe Ql (Nph) Not detected Not Detected [facility] B. parapertussis [id number] DNA ALICE+non-probe Ql (Nph) Not detected Not Detected [facility] B. pertussis toxin promoter region ALICE+non-probe Ql (Nph) Not detected Not Detected [facility] C. pneumoniae DNA ALICE+non-probe Ql (Nph) Not detected Not Detected [facility] FLUAV RNA ALICE+non-probe Ql (Nph) Not detected Not Detected [facility] FLUBV RNA ALICE+non-probe Ql (Nph) Not detected Not Detected [facility] HCoV 229E RNA ALICE+non-probe Ql (Nph) Not detected Not Detected [facility] HCoV HKU1 RNA ALICE+non-probe Ql (Nph) Not detected Not Detected [facility] HCoV NL63 RNA ALICE+non-probe Ql (Nph) Not detected Not Detected [facility] HCoV OC43 RNA ALICE+non-probe Ql (Nph) Not detected Not Detected [facility] hMPV RNA ALICE+non-probe Ql (Nph) Not detected Not Detected [facility] Interpretation and review of laboratory results Normal [facility] M. pneumoniae DNA ALICE+non-probe Ql (Nph) Not detected Not Detected [facility] Parainfluenza virus 1 RNA ALICE+non-probe Ql (Nph) Not detected Not Detected [facility] Parainfluenza virus 2 RNA ALICE+non-probe Ql (Nph) Not detected Not Detect[facility] Parainfluenza virus 3 RNA ALICE+non-probe Ql (Nph) Not detected Not Detected [facility] Parainfluenza virus 4 RNA ALICE+non-probe Ql (Nph) Not detected Not Detected [facility] Rhinovirus+Enterovirus RNA ALICE+non-probe Ql (Nph) Not detected Not Detected [facility] RSV RNA ALICE+non-probe Ql (Nph) Not detected Not Detected [facility] SARS-CoV-2 (COVID-19) RNA ALICE+non-probe Ql (Nph) Not detected Not Detected [facility] S. pneumoniae Urine AntigenO rdered By: Maxine Hill on 11-27-2023 Interpretation and review of laboratory results Normal [facility] S. pneumoniae Ag Ql (U) Negative Pres umptive Negative for Pneumococcal pneumoniae [facility] TSH DL <= 0.005 mIU/L Qnon 0 11-27-2023 Interpretation and review of laboratory results Normal [facility] TSH Qn 0.35 m[IU]/L [facility] Tropinin I.cardiac panel Hig h sensitivity methodon 11-27-2023 Interpretation and review of laboratory results Abnormal [facility] Less than 99th percentile of normal [...] different testing methodology at [facility] than at other [facility]. Direct result comparisons should only be made within the same method. [facility] Troponin I, High Sensitivity on 11-27-2023 Tropinin I.cardiac panel High sensitivity method 6445 ng/L Critically high 0 - 20 ng/L [facility] Comment on above: Previous result veri fied on 11/26/2023 2158 on specimen/case [id number] called with component [facility] for procedure Troponin I, High Sensitivity with value 2,361 ng/L. Troponin x 2 (Now and Repeat in 3 hours)Ordered By: Stephanie Carlton on 11-27-2023 Delta % Troponin I -6 % <20% of Baseline Troponin [facility] Troponin I Delta Change Probable non-acute cardiac injury or late presentation of acute injury. [facility] Interpretation and review of laboratory results Abnormal [facility] Troponin I 9349 ng/L Critically high NINF - 59 ng/L [facility] Troponin x 2 (Now and Repeat in 3 hours)on 11-27-2023 Interpretation and review of laboratory results Abnormal [facility] Troponin I 9973 ng/L Critically high NINF - 59 ng/L [facility] Troponin I Interpretation Possible acute cardiac injury. [facility] XR Chest PA and Abdomen APon 11-27-2023 GE RIS GE RIS [facility] Radiology Study observation (narrative) [facility] XR Chest PA and Abdomen APOr dered By: Malika Painting on 11-27-2023 [facility] Work Phone: aPTT Coag (Bld) [Time]Ordere d By: Becky Mercado on 11-27-2023 Interpretation and review of laboratory results Abnormal [facility] aPTT Coag (Bld) [Time]Ordere d By: Anjali Hartmann on 11-27-2023 Interpretation and review of laboratory results Abnormal [facility] CBC W Auto Differential pane l (Bld)on 11-26-2023 Basophils (Bld) [#/Vol] 0.05 10*3/uL [facility] Basophils/100 WBC (Bld) 0.2 % 0.0 - 2.0 % [facility] Eosinophils (Bld) [#/Vol] 0.00 10*3/uL [facility] Eosinophils/100 WBC (Bld) 0.0 % 0.0 - 6.0 % [facility] Erythrocyte distribution width (RBC) [Ratio] 13.8 % 11.5 - 14.5 % [facility] Hematocrit (Bld) [Volume fraction] 38.0 % Low 41.0 - 52.0 % [facility] Hemoglobin (Bld) [Mass/Vol] 12.2 g/dL Low 13.5 - 17.5 g/dL [facility] Immature granulocytes (Bld) [#/Vol] 0.12 10*3/uL [facility] Immature granulocytes/100 WBC (Bld) 0.6 % 0.0 - 0.9 % [facility] Comment on above: Immature Granulocyte Count (IG) includes promyelocytes, myelocytes and metamyelocytes but does not include bands. Percent differential counts (%) should be interpreted in the context of the absolute cell counts (cells/UL). Interpretation and review of laboratory results Abnormal [facility] Lymphocytes (Bld) [#/Vol] 2.01 10*3/uL [facility] Lymphocytes/100 WBC (Bld) 9.8 % 13.0 - 44. 0 % [facility] MCH (RBC) [Entitic mass] 30.5 pg 26. 0 - 34.0 pg [facility] MCHC (RBC) [Mass/Vol] 32.1 g/dL 32.0 - 36.0 g/dL [facility] MCV (RBC) [Entitic vol] 95 fL 80 - 100 fL [facility] Monocytes (Bld) [#/Vol] 0.75 10*3/uL [facility] Monocytes/100 WBC (Bld) 3.7 % 2.0 - 10.0 % [facility] Neutrophils (Bld) [#/Vol] 17.49 10*3/uL High [facility] Comment on above: Percent differential counts (%) should be interpreted in the context of the absolute cell counts (cells/uL). Neutrophils/100 WBC (Bld) 85.7 % 40.0 - 80. 0 % [facility] Nucleated RBC/100 WBC (Bld) [Ratio] 0.0 % [facility] Platelets (Bld) [#/Vol] 281 10*3/uL [facility] RBC (Bld) [#/Vol] 4.00 10*6/uL Low [facility] WBC (Bld) [#/Vol] 20.4 10*3/uL [facility] Comprehensive metabolic 2000 panelon 11-26-2023 Albumin BCP dye [Mass/Vol] 4.2 g/dL 3.4 - 5.0 g/dL [facility] ALP [Catalytic activity/Vol] 101 U/L 33 - 136 U/L [facility] ALT With P-5'-P [Catalytic activity/Vol] 38 U/L 10 - 52 U/L [facility] Comment on above: Patients treated wit h Sulfasalazine may generate falsely decreased results for ALT. Anion gap [Moles/Vol] 17 mmol/L 10 - 2 0 mmol/L [facility] AST With P-5'-P [Catalytic activity/Vol] 53 U/L High 9 - 39 U/L [facility] Bilirubin [Mass/Vol] 0.6 mg/dL 0.0 - 1 .2 mg/dL [facility] Calcium [Mass/Vol] 9.2 mg/dL 8.6 - 10. 3 mg/dL [facility] Chloride [Moles/Vol] 106 mmol/L 98 - 10 7 mmol/L [facility] CO2 [Moles/Vol] 17 mmol/L Low 21 - 32 mmol/L [facility] Creatinine [Mass/Vol] 1.96 mg/dL High 0.50 - 1.30 mg/dL [facility] GFR/1.73 sq M.predicted among non-blacks MDRD (S/P/Bld) [Vol rate/Area] 34 mL/min/{1.73_m2} Low - [facility]F [facility] Comment on above: Calculations of albin mated GFR are performed using the 2020 CKD-EPI Study Refit equation without the race variable for the IDMS-Traceable creatinine methods. https://jasn.asnjournals.org/content//ASN.20 09333769 Glucose [Mass/Vol] 492 mg/dL Critically high 74 - 99 mg/d L [facility] Comment on above: Confirmed by repeat analysis Interpretation and review of laboratory results Abnormal [facility] Potassium [Moles/Vol] 4.5 mmol/L 3.5 - 5.3 mmol/L [facility] Protein [Mass/Vol] 6.7 g/dL 6.4 - 8.2 g/dL [facility] Sodium [Moles/Vol] 135 mmol/L Low 136 - 145 mmol/L [facility] Urea nitrogen [Mass/Vol] 35 mg/dL High 6 - 23 mg/d L [facility] Critical Careon 11-26-2023 Ger Bansal DO [...] discussed with: accepting provider at another facility [facility] Work Phone: [facility] Work Phone: Lactateon 11-26-2023 Lactate [Moles/Vol] 3.2 mmol/L High 0.4 - 2. 0 mmol/L [facility] Lactate [Moles/Vol] 3.8 mmol/L High 0.4 - 2. 0 mmol/L [facility] Lactate [Moles/Vol]on 2023 Interpretation and review of laboratory results Abnormal [facility] Venipuncture immediately after or during the administration of Metamizole may lead to falsely low results. Testing should be performed immediately prior to Metamizole dosing. [facility] Interpretation and review of laboratory results Abnormal [facility] Venipuncture immediately after or during the administration of Metamizole may lead to falsely low results. Testing should be performed immediately prior to Metamizole dosing. [facility] MRSA DNA ALICE+probe Ql (Nose) on 11-26-2023 Interpretation and review of laboratory results Normal [facility] MRSA DNA ALICE+probe Ql (Unsp spec) Not detected Not Detected [facility] This assay is an FDA-approved in [...] patients less than two years of age. [facility] Magnesiumon 11-26-2023 Magnesium [Mass/Vol] 2.20 mg/dL 1.60 - 2.40 mg/dL [facility] Magnesium [Mass/Vol]on 11-26 Interpretation and review of laboratory results Normal [facility] Natriuretic peptide B [Mass/ Vol]on 11-26-2023 Interpretation and review of laboratory results Abnormal [facility] Natriuretic peptide B (Bld) [Mass/Vol] 902 pg/mL High 0 - 99 pg/mL [facility] <100 pg/mL - Heart failure unlikely 100-299 pg/mL - Intermediate probability of acute heart failure exacerbation. Correlate with clinical context and patient history. >=300 pg/mL - Heart Failure likely. Correlate with clinical context and patient history. BNP testing is performed using different testing methodology at [facility] than at other [facility]. Direct result comparisons should only be made within the same method. [facility] No Panel Informationon 11-26 [facility] Interpretation and review of laboratory results Normal [facility] PT Coag (PPP) [Time]on 11-26 INR Coag (PPP) [Relative time] 1.1 {INR} 0.9 - 1.1 [facility] Protime-INRon 11-26-2023 PT Coag (PPP) [Time] 12.3 s [facility] Tropinin I.cardiac panel Hig h sensitivity methodon 11-26-2023 Interpretation and review of laboratory results Abnormal [facility] Less than 99th percentile of normal [...] different testing methodology at [facility] than at other [facility]. Direct result comparisons should only be made within the same method. [facility] Interpretation and review of laboratory results Abnormal [facility] Less than 99th percentile of normal [...] different testing methodology at [facility] than at other [facility]. Direct result comparisons should only be made within the same method. [facility] Troponin I, High Sensitivity on 11-26-2023 Tropinin I.cardiac panel High sensitivity method 3473 ng/L Critically high 0 - 20 ng/L [facility] Comment on above: Previous result veri fied on 11/26/2023 2158 on specimen/case [id number] called with component [facility] for procedure Troponin I, High Sensitivity with value 2,361 ng/L. Tropinin I.cardiac panel High sensitivity method 2361 ng/L Critically high 0 - 20 ng/L [facility] XR Chest Single viewon 11-26 Pulmonary vascular congestive change and edema and small bilateral pleural effusions. There is asymmetric opacity in the right lower lung concerning for superimposed pneumonia. 10 mm nodular opacity at the left lung base; follow-up dedicated CT chest is recommended to exclude underlying pulmonary nodule. MACRO: None Signed by: Ghassan Tovar 11/26/2023 10:02 PM Dictation workstation: [id number] [facility] Interpreted By: Ghassan Tovar, STUDY: XR CHEST 1 VIEW; 11/26/2023 9:31 pm INDICATION: Signs/Symptoms:dyspn ea. COMPARISON: 10/13/2023 ACCESSION NUMBER(S): [id number] ORDERING CLINICIAN: GER BANSAL FINDINGS: The cardiac silhouette is stable in size. There is pulmonary vascular congestive change and edema. Small bilateral pleural effusions. There is 10 mm nodular opacity at the left lung base. No pneumothorax [facility] Ghassan Tovar MD - 11/26/2023 Interpreted By: Ghassan Tovar, STUDY: XR CHEST 1 VIEW; 11/26/2023 9:31 pm INDICATION: Signs/Symptoms:dyspn ea. COMPARISON: 10/13/2023 ACCESSION NUMBER(S): [id number] ORDERING CLINICIAN: GER BANSAL FINDINGS: The cardiac [...] Ghassan Tovar 11/26/2023 10:02 PM Dictation workstation: [id number] [facility] Work Phone: Radiology Study observation (narrative) [facility] Work Phone: XR Chest Single viewOrdered By: Ghassan Tovar on 11-26-2023 [facility] Work Phone: aPTTon 11-26-2023 aPTT Coag (PPP) [Time] 38 s Un [facility] aPTT Coag (PPP) [Time]on The APTT is no longer used for monitoring Unfractionated Heparin Therapy. For monitoring Heparin Therapy, use the Heparin Assay. [facility] Absolute lymphocyte countOrd ered By: Ryley Jeter on 11-25-2023 Lymphocytes Auto (Unsp spec) [#/Vol] 1.79 10*3/uL 0.83-4.51 [facility] Automated lymphocyte count a s percentage of total leukocytesOrdered By: Ryley Gordilloke on 11-25-2023 Lymphocytes/100 WBC Auto (Unsp spec) 19.7 % 19-41 [facility] Basophil percentageOrdered B y: Ryley Jeter on 11-25-2023 Basophils/100 WBC (Bld) 1.0 % 0-1 [facility] Bilirubin [Mass/Vol] 0.50 mg/dL 0.20-1.00 [facility] Comment on above: For patients on eltr ombopag therapy, use of Dimension [place] TBIL is not recommended. Chloride [Moles/Vol] 113 mmol/L 98-107 [facility] Eosinophils/100 WBC (Bld) 2.3 % 0-5 [facility] Glucose [Mass/Vol] 130 mg/dL 74-106 [facility] Comment on above: Fasting Glucose resu lt greater than or equal to 126 mg/dL suggests DIABETES MELLITUS per A.D.A. criteria. Hemoglobin (Bld) [Mass/Vol] 12.2 g/dL 13.0-16.5 [facility] Monocytes/100 WBC (Bld) 7.5 % 0-10 [facility] Neutrophils (Bld) [#/Vol] 6.3 10*3/uL 2.0-7.7 [facility] Neutrophils/100 WBC (Bld) 69.2 % 47-70 [facility] Potassium [Moles/Vol] 4.3 mmol/L 3.5-5.1 [facility] Protein [Mass/Vol] 7.1 g/dL 6.4-8.2 [facility] Sodium [Moles/Vol] 142 mmol/L 136-145 [facility] WBC (Bld) [#/Vol] 9.1 10*3/uL 4.4-11.0 [facility] Determination of erythrocyte mean corpuscular volume (MCV)Ordered By: Ryley Jeter on 11-25-2023 MCV (RBC) [Entitic vol] 93.5 fL 80-94 [facility] Erythrocyte distribution wid th ratioOrdered By: Ryley Steffany on 11-25-2023 Erythrocyte distribution width (RBC) [Ratio] 14.1 % 11.6-14.6 [facility] Erythrocyte distribution wid th standard deviationOrdered By: Ryley Steffany on 11-25-2023 Erythrocyte distribution width (RBC) [Entitic vol] 47.9 fL 35.1-43.9 [facility] Hematocrit Auto (Bld) [Volum e fraction]Ordered By: Ryley Jeter on 11-25-2023 Hematocrit (Bld) [Volume fraction] 37.7 % 40-54 [facility] Immature granulocytes/100 WB C Auto (Bld)Ordered By: Ryley Jeter on 11-25-2023 Immature granulocytes/100 WBC (Bld) 0.300 % 0.0-0.9 [facility] Comment on above: IG% - Immature Granu locytes (promyelocytes, myelocytes and metamyelocytes) > 1% indicates that a LEFT SHIFT is Present. Laboratory - Chemistry and C hemistry - challengeOrdered By: Ryley Jeter on 11-25-2023 Albumin/Globulin [Mass ratio] 1.0 {ratio} 0.9-2.4 [facility] ALP [Catalytic activity/Vol] 98 U/L 45-117 [facility] ALT [Catalytic activity/Vol] 25 U/L 16-61 [facility] CO2 [Moles/Vol] 25.0 mmol/L 21.0-32.0 [facility] Globulin (S) [Mass/Vol] 3.5 g/dL 2.2-4.2 [facility] Urea nitrogen/Creatinine [Mass ratio] 13.5 mg/mg 10-20 [facility] Laboratory - Hematology and Cell countsOrdered By: Ryley Jeter on 11-25-2023 MCH (RBC) [Entitic mass] 30.3 pg 27.0-32.0 [facility] MCHC (RBC) [Mass/Vol] 32.4 g/dL 32-36 [facility] Nucleated RBC/100 WBC (Bld) [Ratio] 0 % 0-5 [facility] Platelets (Bld) [#/Vol] 239 10*3/uL 150-450 [facility] No Panel InformationOrdered By: Ryley Jeter on 11-25-2023 Estimated GFR (MDRD) Amer 55 mL/min >60 [facility] Comment on above: GFR Calc Estimated GFR (MDRD) Non-Af Amer 46 mL/min >60 [facility] Comment on above: Non- GFR Calc Platelet mean volume [place]odi-Ec ker (Bld) [Entitic vol]Ordered By: Ryley Jeter on 11-25-2023 Platelet mean volume (Bld) [Entitic vol] 11.3 fL 6.2-12.0 [facility] RBC Auto (Bld) [#/Vol]Ordere d By: Ryley Jeter on 11-25-2023 RBC (Bld) [#/Vol] 4.03 10*6/uL 4.6-6.2 [facility] Serum or plasma calcium nikkie urement (mass/volume)Ordered By: Ryley Jeter on 11-25-2023 Calcium [Mass/Vol] 9.5 mg/dL 8.5-10.1 [facility] Serum or plasma creatinine m easurement (mass/volume)Ordered By: Ryley Jeter on 11-25-2023 Creatinine [Mass/Vol] 1.56 mg/dL 0.70-1.30 [facility] [facility] Comment on above: The validity of the calculated GFR & GFRAA in patients over 70 years has not been determined. Clinical correlation is essential. Serum or plasma thyroid stim ulating hormone (TSH) measurement (units/volume)Ordered By: Ryley Jeter on 11-25-2023 TSH Qn 0.80 uIU/mL 0.358-3.74 [facility] Serum or plasma urea nitroge n measurement (mass/volume)Ordered By: Ryley Jeter on 11-25-2023 Urea nitrogen [Mass/Vol] 21 mg/dL 7-18 [facility] Thin prep Papanicolaou smear with manual screeningOrdered By: Ryley Jeter on 11-25-2023 Thin prep Papanicolaou smear with manual screening 3.6 g/dL 3.2-5.0 [facility] Thin prep Papanicolaou smear with manual screening 23 U/L 15-37 [facility] Thin prep Papanicolaou smear with manual screening 4 5-15 [facility] Basophil percentageOrdered B y: Jana Ferguson on 10-22-2023 Chloride [Moles/Vol] 111 mmol/L 98-107 [facility] Glucose [Mass/Vol] 120 mg/dL 74-106 [facility] Comment on above: Fasting Glucose resu lt from 100 to 125 mg/dL suggests IMPAIRED HOMEOSTASIS per A.D.A. criteria. Potassium [Moles/Vol] 4.7 mmol/L 3.5-5.1 [facility] Sodium [Moles/Vol] 140 mmol/L 136-145 [facility] WBC (Bld) [#/Vol] 9.1 10*3/uL 4.4-11.0 [facility] Blood erythrocytes count (nu mber/volume)Ordered By: Jana Ferguson on 10-22-2023 RBC (Bld) [#/Vol] 4.16 10*6/uL 4.6-6.2 [facility] Blood hemoglobin measurement (mass/volume)Ordered By: Jana Ferguson on 10-22-2023 Hemoglobin (Bld) [Mass/Vol] 12.3 g/dL 13.0-16.5 [facility] Blood platelet mean volumeOr dered By: Jana Ferguson on 10-22-2023 Platelet mean volume (Bld) [Entitic vol] 11.6 fL 6.2-12.0 [facility] Determination of erythrocyte mean corpuscular volume (MCV)Ordered By: Jana Ferguson on 10-22-2023 MCV (RBC) [Entitic vol] 93.0 fL 80-94 [facility] Hematocrit Auto (Bld) [Volum e fraction]Ordered By: Jana Ferguson on 10-22-2023 Hematocrit (Bld) [Volume fraction] 38.7 % 40-54 [facility] Laboratory - Chemistry and C hemistry - challengeOrdered By: Jana Ferguson on 10-22-2023 CO2 [Moles/Vol] 27.0 mmol/L 21.0-32.0 [facility] Urea nitrogen/Creatinine [Mass ratio] 20.9 mg/mg 10-20 [facility] Laboratory - Hematology and Cell countsOrdered By: Jana Ferguson on 10-22-2023 Erythrocyte distribution width (RBC) [Entitic vol] 44.3 fL 35.1-43.9 [facility] Erythrocyte distribution width (RBC) [Ratio] 13.0 % 11.6-14.6 [facility] MCH (RBC) [Entitic mass] 29.6 pg 27.0-32.0 [facility] MCHC Auto (RBC) [Mass/Vol]Or dered By: Jana Ferguson on 10-22-2023 MCHC (RBC) [Mass/Vol] 31.8 g/dL 32- [facility] No Panel InformationOrdered By: Jana Ferguson on 10-22-2023 Estimated GFR (MDRD) Amer 40 mL/min >60 [facility] Comment on above: GFR Calc Estimated GFR (MDRD) Non-Af Amer 33 mL/min >60 [facility] Comment on above: Non- GFR Calc Platelets bldOrdered By: Jadyn Ferguson on 10-22-2023 Platelets (Bld) [#/Vol] 304 10*3/uL 150-450 [facility] Serum or plasma calcium nikkie urement (mass/volume)Ordered By: Jana Ferguson on 10-22-2023 Calcium [Mass/Vol] 9.1 mg/dL 8.5-10.1 [facility] Serum or plasma creatinine m easurement (mass/volume)Ordered By: Jana Ferguson on 10-22-2023 Creatinine [Mass/Vol] 2.06 mg/dL 0.70-1.30 [facility] Comment on above: The validity of the calculated GFR & GFRAA in patients over 70 years has not been determined. Clinical correlation is essential. Serum or plasma urea nitroge n measurement (mass/volume)Ordered By: Jana Ferguson on 10-22-2023 Urea nitrogen [Mass/Vol] 43 mg/dL 7-18 [facility] Thin prep Papanicolaou smear with manual screeningOrdered By: Jana Ferguson on 10-22-2023 Thin prep Papanicolaou smear with manual screening 2 5-15 [facility] Basic metabolic 2000 panelon 10-13-2023 Anion gap [Moles/Vol] 17 mmol/L 10 - 2 0 mmol/L [facility] Calcium [Mass/Vol] 8.3 mg/dL Low 8.6 - 10. 3 mg/dL [facility] Chloride [Moles/Vol] 102 mmol/L 98 - 10 7 mmol/L [facility] CO2 [Moles/Vol] 22 mmol/L 21 - 32 mmol/L [facility] Creatinine [Mass/Vol] 2.30 mg/dL High 0.50 - 1.30 mg/dL [facility] GFR/1.73 sq M.predicted MDRD (S/P/Bld) [Vol rate/Area] 28 mL/min/{1.73_m2} Low - PINF [facility] Comment on above: Calculations of albin mated GFR are performed using the 2020 CKD-EPI Study Refit equation without the race variable for the IDMS-Traceable creatinine methods. https://jasn.asnjournals.org/content//ASN.20 60337501 Glucose [Mass/Vol] 327 mg/dL High 74 - 99 mg/dL [facility] Interpretation and review of laboratory results Abnormal [facility] Potassium [Moles/Vol] 4.9 mmol/L 3.5 - 5.3 mmol/L [facility] Sodium [Moles/Vol] 136 mmol/L 136 - 145 mmol/L [facility] Urea nitrogen [Mass/Vol] 57 mg/dL High 6 - 23 mg/d L [facility] CBC W Auto Differential pane l (Bld)on 10-13-2023 Basophils (Bld) [#/Vol] 0.02 10*3/uL [facility] Basophils/100 WBC (Bld) 0.1 % 0.0 - 2.0 % [facility] Eosinophils (Bld) [#/Vol] 0.00 10*3/uL [facility] Eosinophils/100 WBC (Bld) 0.0 % 0.0 - 6.0 % [facility] Erythrocyte distribution width (RBC) [Ratio] 13.2 % 11.5 - 14.5 % [facility] Hematocrit (Bld) [Volume fraction] 36.4 % Low 41.0 - 52.0 % [facility] Hemoglobin (Bld) [Mass/Vol] 12.4 g/dL Low 13.5 - 17.5 g/dL [facility] Immature granulocytes (Bld) [#/Vol] 0.11 10*3/uL [facility] Immature granulocytes/100 WBC (Bld) 0.6 % 0.0 - 0.9 % [facility] Comment on above: Immature Granulocyte Count (IG) includes promyelocytes, myelocytes and metamyelocytes but does not include bands. Percent differential counts (%) should be interpreted in the context of the absolute cell counts (cells/UL). Interpretation and review of laboratory results Abnormal [facility] Lymphocytes (Bld) [#/Vol] 1.30 10*3/uL [facility] Lymphocytes/100 WBC (Bld) 7.3 % 13.0 - 44. 0 % [facility] MCH (RBC) [Entitic mass] 31.0 pg 26. 0 - 34.0 pg [facility] MCHC (RBC) [Mass/Vol] 34.1 g/dL 32.0 - 36.0 g/dL [facility] MCV (RBC) [Entitic vol] 91 fL 80 - 100 fL [facility] Monocytes (Bld) [#/Vol] 1.15 10*3/uL High [facility] Monocytes/100 WBC (Bld) 6.5 % 2.0 - 10.0 % [facility] Neutrophils (Bld) [#/Vol] 15.21 10*3/uL High [facility] Comment on above: Percent differential counts (%) should be interpreted in the context of the absolute cell counts (cells/uL). Neutrophils/100 WBC (Bld) 85.5 % 40.0 - 80. 0 % [facility] Nucleated RBC/100 WBC (Bld) [Ratio] 0.0 % [facility] Platelets (Bld) [#/Vol] 153 10*3/uL [facility] RBC (Bld) [#/Vol] 4.00 10*6/uL Low [facility] WBC (Bld) [#/Vol] 17.8 10*3/uL High [facility] Glucose Test strip manual (B ld) [Mass/Vol]on 10-13-2023 Glucose [Mass/Vol] 329 mg/dL High 74 - 99 mg/dL [place] Interpretation and review of laboratory results Abnormal [facility] Glucose [Mass/Vol] 304 mg/dL High 74 - 99 mg/dL [facility] Interpretation and review of laboratory results Abnormal [facility] Glucose [Mass/Vol] 305 mg/dL High 74 - 99 mg/dL [place] Interpretation and review of laboratory results Abnormal [facility] XR Chest Single viewon 10-13 Right upper lobe airspace consolidation, concerning for pneumonia. Clinical correlation and continued follow-up until clearing is recommended. MACRO: None. Signed by: Jaret Walker 10/13/2023 11:21 AM Dictation workstation: [id number] Interpreted By: Jaret Walker, STUDY: XR CHEST 1 VIEW 10/13/2023 8:31 am INDICATION: Signs/Symptoms:Acute dyspnea COMPARISON: 10/11/2023 ACCESSION NUMBER(S): [id number] ORDERING CLINICIAN: VERA RIVERA TECHNIQUE: A single [...] INDICATION: Signs/Symptoms:Acute dyspnea COMPARISON: 10/11/2023 ACCESSION NUMBER(S): [id number] ORDERING CLINICIAN: VERA RIVERA TECHNIQUE: A single [...] Jaret Walker 10/13/2023 11:21 AM Dictation workstation: [id number] [facility] Work Phone: Radiology Study observation (narrative) [facility] Work Phone: XR Chest Single viewOrdered By: Jaret Walker on 10-13-2023 [facility] Work Phone: Basic metabolic 2000 panelon 10-12-2023 Anion gap [Moles/Vol] 13 mmol/L 10 - 2 0 mmol/L [facility] Calcium [Mass/Vol] 8.2 mg/dL Low 8.6 - 10. 3 mg/dL [facility] Chloride [Moles/Vol] 103 mmol/L 98 - 10 7 mmol/L [facility] CO2 [Moles/Vol] 23 mmol/L 21 - 32 mmol/L [facility] Creatinine [Mass/Vol] 2.11 mg/dL High 0.50 - 1.30 mg/dL [facility] GFR/1.73 sq M.predicted MDRD (S/P/Bld) [Vol rate/Area] 31 mL/min/{1.73_m2} Low - PINF [facility] Comment on above: Calculations of albin mated GFR are performed using the 2020 CKD-EPI Study Refit equation without the race variable for the IDMS-Traceable creatinine methods. https://jasn.asnjournals.org/content/22/ASN.20 81548870 Glucose [Mass/Vol] 214 mg/dL High 74 - 99 mg/dL [place] Interpretation and review of laboratory results Abnormal [facility] Potassium [Moles/Vol] 4.4 mmol/L 3.5 - 5.3 mmol/L [facility] Sodium [Moles/Vol] 135 mmol/L Low 136 - 145 mmol/L [facility] Urea nitrogen [Mass/Vol] 44 mg/dL High 6 - 23 mg/d L [facility] CBC W Auto Differential pane l (Bld)on 10-12-2023 Basophils (Bld) [#/Vol] 0.03 10*3/uL [facility] Basophils/100 WBC (Bld) 0.1 % 0.0 - 2.0 % [facility] Eosinophils (Bld) [#/Vol] 0.00 10*3/uL [facility] Eosinophils/100 WBC (Bld) 0.0 % 0.0 - 6.0 % [facility] Erythrocyte distribution width (RBC) [Ratio] 13.0 % 11.5 - 14.5 % [facility] Hematocrit (Bld) [Volume fraction] 34.5 % Low 41.0 - 52.0 % [facility] Hemoglobin (Bld) [Mass/Vol] 11.8 g/dL Low 13.5 - 17.5 g/dL [facility] Immature granulocytes (Bld) [#/Vol] 0.09 10*3/[facility] Immature granulocytes/100 WBC (Bld) 0.4 % 0.0 - 0.9 % [facility] Comment on above: Immature Granulocyte Count (IG) includes promyelocytes, myelocytes and metamyelocytes but does not include bands. Percent differential counts (%) should be interpreted in the context of the absolute cell counts (cells/UL). Interpretation and review of laboratory results Abnormal [facility] Lymphocytes (Bld) [#/Vol] 1.79 10*3/uL [facility] Lymphocytes/100 WBC (Bld) 8.6 % 13.0 - 44. 0 % [facility] MCH (RBC) [Entitic mass] 30.8 pg 26. 0 - 34.0 pg [facility] MCHC (RBC) [Mass/Vol] 34.2 g/dL 32.0 - 36.0 g/dL [facility] MCV (RBC) [Entitic vol] 90 fL 80 - 100 fL [facility] Monocytes (Bld) [#/Vol] 1.55 10*3/uL High [facility] Monocytes/100 WBC (Bld) 7.5 % 2.0 - 10.0 % [facility] Neutrophils (Bld) [#/Vol] 17.32 10*3/uL [facility] Comment on above: Percent differential counts (%) should be interpreted in the context of the absolute cell counts (cells/uL). Neutrophils/100 WBC (Bld) 83.4 % 40.0 - 80. 0 % [facility] Nucleated RBC/100 WBC (Bld) [Ratio] 0.0 % [facility] Platelets (Bld) [#/Vol] 152 10*3/uL [facility] RBC (Bld) [#/Vol] 3.83 10*6/uL Low [facility] WBC (Bld) [#/Vol] 20.8 10*3/uL [facility] Glucose Test strip manual (B ld) [Mass/Vol]on 10-12-2023 Glucose [Mass/Vol] 240 mg/dL High 74 - 99 mg/dL [place] Interpretation and review of laboratory results Abnormal [facility] Glucose [Mass/Vol] 166 mg/dL High 74 - 99 mg/dL [place] Interpretation and review of laboratory results Abnormal [facility] Glucose [Mass/Vol] 186 mg/dL High 74 - 99 mg/dL [place] Interpretation and review of laboratory results Abnormal [facility] Glucose [Mass/Vol] 218 mg/dL High 74 - 99 mg/dL [place] Interpretation and review of laboratory results Abnormal [facility] Glucose [Mass/Vol] 127 mg/dL High 74 - 99 mg/dL [place] Interpretation and review of laboratory results Abnormal [facility] No Panel Informationon 10-12 Extra Tube Hold for add-ons. [facility] Comment on above: Auto resulted. [facility] CBC W Auto Differential pane l (Bld)on 10-11-2023 Basophils (Bld) [#/Vol] 0.07 10*3/uL [facility] Basophils/100 WBC (Bld) 0.7 % 0.0 - 2.0 % [facility] Eosinophils (Bld) [#/Vol] 0.09 10*3/uL [facility] Eosinophils/100 WBC (Bld) 0.9 % 0.0 - 6.0 % [facility] Erythrocyte distribution width (RBC) [Ratio] 13.0 % 11.5 - 14.5 % [facility] Hematocrit (Bld) [Volume fraction] 36.7 % Low 41.0 - 52.0 % [facility] Hemoglobin (Bld) [Mass/Vol] 12.0 g/dL Low 13.5 - 17.5 g/dL [facility] Immature granulocytes (Bld) [#/Vol] 0.03 10*3/uL [facility] Immature granulocytes/100 WBC (Bld) 0.3 % 0.0 - 0.9 % [facility] Comment on above: Immature Granulocyte Count (IG) includes promyelocytes, myelocytes and metamyelocytes but does not include bands. Percent differential counts (%) should be interpreted in the context of the absolute cell counts (cells/UL). Interpretation and review of laboratory results Abnormal [facility] Lymphocytes (Bld) [#/Vol] 1.34 10*3/uL [facility] Lymphocytes/100 WBC (Bld) 12.9 % 13.0 - 44. 0 % [facility] MCH (RBC) [Entitic mass] 30.4 pg 26. 0 - 34.0 pg [facility] MCHC (RBC) [Mass/Vol] 32.7 g/dL 32.0 - 36.0 g/dL [facility] MCV (RBC) [Entitic vol] 93 fL 80 - 100 fL [facility] Monocytes (Bld) [#/Vol] 1.25 10*3/uL High [facility] Monocytes/100 WBC (Bld) 12.0 % 2.0 - 10.0 % [facility] Neutrophils (Bld) [#/Vol] 7.64 10*3/uL High [facility] Comment on above: Percent differential counts (%) should be interpreted in the context of the absolute cell counts (cells/uL). Neutrophils/100 WBC (Bld) 73.2 % 40.0 - 80. 0 % [facility] Nucleated RBC/100 WBC (Bld) [Ratio] 0.0 % [facility] Platelets (Bld) [#/Vol] 158 10*3/uL [facility] RBC (Bld) [#/Vol] 3.95 10*6/uL Low [facility] WBC (Bld) [#/Vol] 10.4 10*3/uL [facility] Comprehensive metabolic 2000 panelon 10-11-2023 Albumin BCP dye [Mass/Vol] 3.8 g/dL 3.4 - 5.0 g/dL [facility] ALP [Catalytic activity/Vol] 83 U/L 33 - 136 U/L [facility] ALT With P-5'-P [Catalytic activity/Vol] 13 U/L 10 - 52 U/L [facility] Comment on above: Patients treated wit h Sulfasalazine may generate falsely decreased results for ALT. Anion gap [Moles/Vol] 15 mmol/L 10 - 2 0 mmol/L [facility] AST With P-5'-P [Catalytic activity/Vol] 18 U/L 9 - 39 U/L [facility] Bilirubin [Mass/Vol] 0.4 mg/dL 0.0 - 1 .2 mg/dL [facility] Calcium [Mass/Vol] 8.5 mg/dL Low 8.6 - 10. 3 mg/dL [facility] Chloride [Moles/Vol] 103 mmol/L 98 - 10 7 mmol/L [facility] CO2 [Moles/Vol] 22 mmol/L 21 - 32 mmol/L [facility] Creatinine [Mass/Vol] 1.83 mg/dL High 0.50 - 1.30 mg/dL [facility] GFR/1.73 sq M.predicted MDRD (S/P/Bld) [Vol rate/Area] 37 mL/min/{1.73_m2} Low - PINF [facility] Comment on above: Calculations of alibn mated GFR are performed using the 2020 CKD-EPI Study Refit equation without the race variable for the IDMS-Traceable creatinine methods. https://jasn.asnjournals.org/content//ASN.20 30071524 Glucose [Mass/Vol] 344 mg/dL High 74 - 99 mg/dL [facility] Interpretation and review of laboratory results Abnormal [facility] Potassium [Moles/Vol] 4.4 mmol/L 3.5 - 5.3 mmol/L [facility] Protein [Mass/Vol] 6.3 g/dL Low 6.4 - 8.2 g/dL [facility] Sodium [Moles/Vol] 136 mmol/L 136 - 145 mmol/L [facility] Urea nitrogen [Mass/Vol] 30 mg/dL High 6 - 23 mg/d L [facility] Critical Careon 10-11-2023 Aury Rouse DO [...] specialty: no Care discussed with: admitting provider [facility] Work Phone: [facility] Work Phone: D-Dimer, VTE Exclusionon Fibrin D-dimer FEU (PPP) [Mass/Vol] 1869 High NINF [facility] ECG 12-LEADon 10-11-2023 ECG 12-LEAD Ventricular Rate 113 Atrial Rate 113 P-R Interval 148 QRS Duration 82 Q-T Interval 332 QTC Calculation(Bazett) 455 P [place] 67 R [place] 39 T [place] 81 QRS Count 18 Q Onset 220 P Onset 146 P Offset 189 T Offset 386 QTC Fredericia 410 Diagnosis Sinus tachycardia 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 Negative results do not preclude Influenza A/B infections, and should not be used as the sole basis for diagnosis, treatment, or other management decisions. If Influenza A/B and RSV PCR results are negative, testing for Parainfluenza virus, Adenovirus and Metapneumovirus is routinely performed for [facility] [place]ology and intensive care inpatients, and is available on other patients by placing an add-on request. [facility] Fibrin D-dimer FEU (PPP) [Ma ss/Vol]on 10-11-2023 Interpretation and review of laboratory results Abnormal [facility] The VTE Exclusion D-Dimer assay is reported in ng/mL Fibrinogen Equivalent Units (FEU). Per academic advisor's instructions for use, a value of less [...] assessment model for DVT or PE exclusion.) [facility] Gas panel (BldA)on 3 Apparatus CANNULA [facility] Base excess Calc (Bld) [Moles/Vol] -2.2000 mmol/L Low -2.0 - 3.0 mmol/L [facility] CO2 (Bld) [Partial pressure] 41 mm[Hg] [facility] HCO3 (Bld) [Moles/Vol] 23.2 mmol/L 22.0 - 26.0 mmol/L [facility] Inhaled oxygen concentration 50 % [facility] Interpretation and review of laboratory results Abnormal [facility] Oxygen (Bld) [Partial pressure] 66 mm[Hg] Low [facility] Oxyhemoglobin (BldA) [Mass fraction] 90.6 % Low 94.0 - 98.0 % [facility] pH (Bld) 7.36 [pH] Low 7.38 - 7.42 pH [facility] Glucose Test strip manual (B ld) [Mass/Vol]on 10-11-2023 Glucose [Mass/Vol] 132 mg/dL High 74 - 99 mg/dL [place] Interpretation and review of laboratory results Abnormal [facility] Glucose [Mass/Vol] 203 mg/dL High 74 - 99 mg/dL [place] Interpretation and review of laboratory results Abnormal [facility] Glucose [Mass/Vol] 271 mg/dL High 74 - 99 mg/dL [place] Interpretation and review of laboratory results Abnormal [facility] Glucose [Mass/Vol] 357 mg/dL High 74 - 99 mg/dL [place] Interpretation and review of laboratory results Abnormal [facility] Glucose [Mass/Vol] 407 mg/dL High 74 - 99 mg/dL [place] Interpretation and review of laboratory results Abnormal [facility] Glucose [Mass/Vol] 385 mg/dL High 74 - 99 mg/dL [place] Interpretation and review of laboratory results Abnormal [facility] Glucose [Mass/Vol] 455 mg/dL High 74 - 99 mg/dL [place] Comment on above: RN/ NOTIFIED Interpretation and review of laboratory results Abnormal [facility] Glucose [Mass/Vol] 481 mg/dL High 74 - 99 mg/dL [place] Comment on above: RN/ NOTIFIED Interpretation and review of laboratory results Abnormal [facility] Glucose [Mass/Vol] mg/dL High 74 - 99 mg/dL [facility] Interpretation and review of laboratory results Abnormal [facility] Glucose [Mass/Vol] mg/dL High 74 - 99 mg/dL [facility] Interpretation and review of laboratory results Abnormal [facility] Glucose [Mass/Vol] 571 mg/dL High 74 - 99 mg/dL [facility] Interpretation and review of laboratory results Abnormal [facility] Glucose [Mass/Vol] 562 mg/dL High 74 - 99 mg/dL [facility] Comment on above: RN/MD NOTIFIED Interpretation and review of laboratory results Abnormal [facility] Glucose [Mass/Vol] 386 mg/dL High 74 - 99 mg/dL [facility] Interpretation and review of laboratory results Abnormal [facility] Glucose [Mass/Vol]on 023 Interpretation and review of laboratory results Abnormal [facility] Glucose, randomon 10-11-2023 Glucose [Mass/Vol] 654 mg/dL Critically high 74 - 99 mg/d L [facility] Comment on above: Confirmed by repeat analysis Lactateon 10-11-2023 Lactate [Moles/Vol] 1.6 mmol/L 0.4 - 2. 0 mmol/L [facility] Lactate [Moles/Vol]on 2022 Interpretation and review of laboratory results Normal [facility] Venipuncture immediately after or during the administration of Metamizole may lead to falsely low results. Testing should be performed immediately prior to Metamizole dosing. [facility] Natriuretic peptide B [Mass/ Vol]on 10-11-2023 Interpretation and review of laboratory results Abnormal [facility] Natriuretic peptide B (Bld) [Mass/Vol] 251 pg/mL High 0 - 99 pg/mL [facility] <100 pg/mL - Heart failure unlikely 100-299 pg/mL - Intermediate probability of acute heart failure exacerbation. Correlate with clinical context and patient history. >=300 pg/mL - Heart Failure likely. Correlate with clinical context and patient history. BNP testing is performed using different testing methodology at [facility] than at other [facility]. Direct result comparisons should only be made within the same method. [facility] No Panel Informationon 10-11 Atrial Rate 113 BPM [facility] Work Phone: [phone] P [place] 67 degrees [facility] Work Phone: [phone] P Offset 189 ms [facility] Work Phone: [phone] P Onset 146 ms [facility] Work Phone: [phone] NE Interval 148 ms [facility] Work Phone: Q Onset 220 ms [facility] Work Phone: [phone] QRS Count 18 beats [facility] Work Phone: [phone] QRS Duration 82 ms [facility] Work Phone: QT Interval 332 ms [facility] Work Phone: [phone] QTC Calculation(Bazett) 455 ms U [facility] Work Phone: [phone] QTC Fredericia 410 ms [facility] Work Phone: R [place] 39 degrees [facility] Work Phone: T [place] 81 degrees [facility] Work Phone: T Offset 386 ms [facility] Work Phone: Ventricular Rate 113 BPM [facility] Work Phone: Sinus tachycardia 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 [facility] Comment on above: Auto resulted. [facility] Interpretation and review of laboratory results Normal [facility] ProcalcitoninOrdered By: Teresa Fine on 10-11-2023 Procalcitonin [Mass/Vol] 0.18 ng/mL High ANGEL F - 0.07 ng/mL [facility] Procalcitonin [Mass/Vol]Orde red By: Ismael Fine on 10-11-2023 Interpretation and review of laboratory results Abnormal [facility] Procalcitonin (PCT) results measured serially can [...] on immunomodulatory medications has not been evaluated. [facility] RSV PCRon 10-11-2023 RSV RNA ALICE+probe Ql (Resp) Not detected Not Detected [facility] RSV RNA ALICE+probe Ql (Resp)o n 10-11-2023 This assay is an FDA-cleared, in vitro diagnostic nucleic acid amplification test for the detection of RSV from nasopharyngeal specimens, and has been validated for use at [facility]. Negative results do not preclude RSV infections, and should not be used as the sole basis for diagnosis, treatment, or other management decisions. If Influenza A/B and RSV PCR results are negative, testing for Parainfluenza virus, Adenovirus and Metapneumovirus is routinely performed for pediatric oncology and intensive care inpatients at [facility], and is available on other patients by placing an add-on request. [facility] SARS-CoV-2 (COVID-19) RNA NA A+probe Ql (Resp)Ordered By: Rae Marcelino on 10-11-2023 Interpretation and review of laboratory results Abnormal [facility] This assay has received FDA Emergency [...] and has been validated for use at [facility]. Negative results do not preclude COVID-19 infections and should not be used as the sole basis for diagnosis, treatment, or other management decisions. [facility] SST TOPon 10-11-2023 Extra Tube Hold for add-ons. [facility] Comment on above: Auto resulted. [facility] Sars-CoV-2 PCR, SymptomaticO rdered By: Rae Marcelino on 10-11-2023 SARS-CoV-2 (COVID-19) RNA ALICE+probe Ql (Resp) Detected Abnormal Not Detected [facility] Tropinin I.cardiac panel Hig h sensitivity methodon 10-11-2023 Interpretation and review of laboratory results Abnormal [facility] Less than 99th percentile of normal [...] different testing methodology at [facility] than at other [facility]. Direct result comparisons should only be made within the same method. [facility] Interpretation and review of laboratory results Abnormal [facility] Less than 99th percentile of normal [...] different testing methodology at [facility] than at other [facility]. Direct result comparisons should only be made within the same method. [facility] Troponin I, High Sensitivity , Initialon 10-11-2023 Tropinin I.cardiac panel High sensitivity method 102 ng/L Critically high 0 - 20 ng/L [facility] Troponin, High Sensitivity, 1 Houron 10-11-2023 Tropinin I.cardiac panel High sensitivity method 354 ng/L Critically high 0 - 20 ng/L [facility] Comment on above: Previous result veri fioumar on 10/11/2023 0209 on specimen/case [id number] called with component [facility] for procedure Troponin I, High Sensitivity, Initial with value 102 ng/L. US Heart TransthoracicOrdere d By: Jose Enrique Molina on 10-11-2023 LA vol index A/L 25.1 [facility] Work Phone: LV A4C EF 45.6 [facility] Work Phone: LV biplane EF 44 [facility] Work Phone: LVIDd 3.70 [facility] Work Phone: LVOT diam 1.80 [facility] Work Phone: [facility] Work Phone: [place] [address] [phone], TRANSTHORACIC ECHOCARDIOGRAM REPORT Patient Name: ENOC ARMANDO Reading Physician: [id number] Jose Enrique Molina MD Study Date: 10/11/2023 Ordering Provider: [id number] VERA RIVERA MRN/PID: [id number] Fellow: Nurse: Jana See RN Date of /Age: 2 1945 / 77 years Director Plans: Cecilio Gabriel RDCS Gender: M Additional Staff: Height: 170.18 cm Admit Date: Weight: 71.67 kg Admission Status: Inpatient - Routine BSA: 1.83 m2 Department Location: [address]-ICU Blood Pressure: 141 /71 mmHg Study Type: TRANSTHORACIC ECHO (TTE) COMPLETE Diagnosis/ICD: Acute on chronic systolic (congestive) heart failure (CHF)-I50.23 CPT Codes: Echo Complete w Full Doppler-21484 Study Detail: The following Echo studies were [...] LA Area A2C: 16.2 cm2 [place] A4C: 5.3 cm [place] A2C: 5.0 cm LA Volume Index: 23.9 ml/m2 LA Vol A4C: 43.7 ml LA Vol A2C: 43.3 ml LV SYSTOLIC FUNCTION BY 2D PLANIMETRY (MOD): Normal Ranges: EF-A4C View: 45.6 % (>=55%) EF-A2C View: 40.9 % EF-Biplane: 44.2 % AORTIC VALVE: Normal Ranges: LVOT Diameter: 1.80 cm (1.8-2.4cm) RIGHT VENTRICLE: RV Basal 3.49 cm RV Mid 2.45 cm RV Major 7.8 cm [id number] Jose Enrique Molina MD Electronically signed on 10/11/2023 at 9:43:19 AM Final Jose Enrique Gardiner MD - 10/11/2023 [place] [address] [phone], TRANSTHORACIC ECHOCARDIOGRAM REPORT Patient Name: ENOC Titus TR Reading Physician: [id number] Jose Enrique Molina MD Study Date: 10/11/2023 Ordering Provider: [id number] VERA RIVERA MRN/PID: [id number] Fellow: Nurse: Jana See RN Date of /Age: 2 1945 / 77 years Director Plans: Cecilio Gabriel RDCS Gender: M Additional Staff: Height: 170.18 cm Admit Date: Weight: 71.67 kg Admission Status: Inpatient - Routine BSA: 1.83 m2 Department Location: [address]-ICU Blood Pressure: 141 /71 mmHg Study Type: TRANSTHORACIC ECHO (TTE) COMPLETE Diagnosis/ICD: Acute on chronic systolic (congestive) heart failure (CHF)-I50.23 CPT Codes: Echo Complete w Full Doppler-55561 Study Detail: The following Echo studies were [...] LA Area A2C: 16.2 cm2 [place] A4C: 5.3 cm [place] A2C: 5.0 cm LA Volume Index: 23.9 ml/m2 LA Vol A4C: 43.7 ml LA Vol A2C: 43.3 ml LV SYSTOLIC FUNCTION BY 2D PLANIMETRY (MOD): Normal Ranges: EF-A4C View: 45.6 % (>=55%) EF-A2C View: 40.9 % EF-Biplane: 44.2 % AORTIC VALVE: Normal Ranges: LVOT Diameter: 1.80 cm (1.8-2.4cm) RIGHT VENTRICLE: RV Basal 3.49 cm RV Mid 2.45 cm RV Major 7.8 cm [id number] Jose Enrique Molina MD Electronically signed on 10/11/2023 at 9:43:19 AM Final [facility] Work Phone: [phone] Urinalysis complete W Reflex Culture panel (U)on 10-11-2023 Hyaline casts Auto (Urine sed) [#/Area] OCCASIONAL Abnormal NONE /LPF [facility] Interpretation and review of laboratory results Abnormal [facility] RBC Auto (Urine sed) [#/Area] NONE NONE, 1-2, 3-5 /HPF [facility] WBC Auto (Urine sed) [#/Area] NONE 1-5, NONE /HPF [facility] Appearance (U) Clear Clear [facility] Work Phone: [phone] Bilirubin (U) [Mass/Vol] Negative NEGATIVE [facility] Work Phone: [phone] Color (U) Yellow Straw, Yellow [facility] Work Phone: [phone] Glucose Auto test strip (U) [Mass/Vol] >=500 (3+) Abnormal NEGATIVE mg/dL [facility] Work Phone: [phone] Interpretation and review of laboratory results Abnormal [facility] Work Phone: [phone] Ketones (U) [Mass/Vol] 5 (TRACE) Abnormal NEGAT FRANK mg/dL [facility] Work Phone: [phone] Leukocyte esterase Auto test strip Ql (U) Negative NEGATIVE [facility] Work Phone: [phone] Nitrite Auto test strip Ql (U) Negative NEGATIVE [facility] Work Phone: [phone] pH (U) 5.0 [pH] 5.0, 5.5, 6.0, 6.5, 7.0, 7.5, 8.0 [facility] Work Phone: [phone] Protein (U) [Mass/Vol] 100 (2+) Abnormal NEGAT FRANK mg/dL [facility] Work Phone: [phone] RBC (U) [#/Vol] Negative NEGATIVE [facility] Work Phone: [phone] Specific gravity (U) [Rel density] 1.014 1.005 - 1.035 [facility] Work Phone: Urobilinogen (U) [Mass/Vol] mg/dL NINF - 2.0 mg/dL [facility] Work Phone: [facility] Work Phone: XR Chest Single viewon 10-11 1. Diffuse interstitial and scattered hazy opacities. These are nonspecific and may represent atypical infectious or inflammatory process or possibly edema in the appropriate clinical setting. Component may also be related to chronic parenchymal changes. Recommend follow-up to resolution. Signed by: Kahlil Fagan 10/11/2023 1:33 AM Dictation workstation: [id number] Interpreted By: Kahlil Fagan, STUDY: XR CHEST 1 VIEW; 10/11/2023 1:30 am INDICATION: Signs/Symptoms:Cough . COMPARISON: Chest radiograph 11/04/2012 ACCESSION NUMBER(S): [id number] ORDERING CLINICIAN: AURY ROUSE FINDINGS: SUPPORT DEVICES: [...] . COMPARISON: Chest radiograph 11/04/2012 ACCESSION NUMBER(S): [id number] ORDERING CLINICIAN: AURY ROUSE FINDINGS: SUPPORT DEVICES: [...] Kahlil Fagan 10/11/2023 1:33 AM Dictation workstation: [id number] [facility] Work Phone: Radiology Study observation (narrative) [facility] Work Phone: XR Chest Single viewOrdered By: Kahlil Rylan on 10-11-2023 [facility] Work Phone: US RENAL BILATon 07-30-2023 US RENAL BILAT Patient Name: ENOC ARMANDO STUDY: US RENAL BILAT 07/30/2023 1:11 pm INDICATION: 77 y/o M with CKD N18.9: CKD (chronic kidney disease). COMPARISON: None. ACCESSION NUMBER(S): [id number] ORDERING CLINICIAN: AYANNA ALBERT TECHNIQUE: Grayscale imaging [...] hydronephrosis. Electronically signed by: TENNILLE MAHARAJ MD [facility] Therapy Communicationon 07-03 Therapy Communication Message [...] (E10.9) Orders Albumin, Urine Spot; Status:Active; Requested for:[id number]; Basic Metabolic Panel; Status:Active; Requested for:33Evq4962; Magnesium, Serum; Status:Active; Requested for:18Qcx0994; Parathormone Intact, Serum; Status:Active; Requested for:39Gqj6236; Phosphorus, Serum; Status:Active; Requested for:78Lji3065; Ultrasound Kidney Bilateral; Status:Hold For - Scheduling; Requested for:85Pgj6027; Radiologist to Determine Optimal Study : Y What are the patient's signs and symptoms? : CKD Uric Acid, Serum; Status:Active; Requested for:73Hjq8693; Urinalysis; Status:Active; Requested for:51Win4644; Vitamin D 25-Hydroxy; Status:Need Information - ABN Disposition; Requested for:07Qso9805; Patient Discussion/Summary Issues: 1. Chronic kidney disease [...] diabetes Microalbuminuria Dyslipidemia Nicotine Abuse Chief Complaint [employer]- REFERRED BY GERMAIN ORTEGA FOR CKD History [...] Capsule1 capsule daily Vitals Vital Signs Recorded: [id number] 02:48PMRecorded: 36Lle4394 02:45PM Ekixrjou240, HSH895, LUE, Sitting [id number] (more content not included)... Normal Finomial Tobacco Screening.on 023 Fall risk assessment b) One or more fall s in the last year [facility] Work Phone: Tobacco use status [facility]PHS a) Yes U H [facility] Work Phone: COMPREHENSIVE PANELon 2022 Albumin [Mass/Vol] 3.7 g/dL Normal 3.4 - 5.0 [facility] Comment on above: Performed By: #### C MP #### [address] [address] ALP [Catalytic activity/Vol] 80 U/L Normal 33 - 136 [facility] Comment on above: Performed By: #### C MP #### [address] [address] ALT [Catalytic activity/Vol] 12 U/L Normal 10 - 52 [facility] Comment on above: Result Comment: Twila ents treated with Sulfasalazine may generate falsely decreased results for ALT. Performed By: #### C MP #### [address] [address] Anion gap [Moles/Vol] 10 mmol/L Normal 10 - 20 [facility] Comment on above: Performed By: #### C MP #### [address] [address] AST [Catalytic activity/Vol] 16 U/L Normal 9 - 39 [facility] Comment on above: Performed By: #### C MP #### [address] [address] Bilirubin [Mass/Vol] 0.5 mg/dL Normal 0.0 - 1.2 [facility] Comment on above: Performed By: #### C MP #### [address] [address] Calcium [Mass/Vol] 8.9 mg/dL Normal 8.6 - 10.3 [facility] Comment on above: Performed By: #### C MP #### [address] [address] Chloride [Moles/Vol] 107 mmol/L Normal 98 - 107 [facility] Comment on above: Performed By: #### C MP #### [address] [address] Creatinine [Mass/Vol] 1.85 mg/dL High 0.50 - 1.30 [facility] Comment on above: Performed By: #### C MP #### [address] [address] GFR/1.73 sq M.predicted among non-blacks MDRD (S/P/Bld) [Vol rate/Area] 36 mL/min/{1.73_m2} Abnormal >90 [facility] Comment on above: Result Comment: CALC ULATIONS OF ESTIMATED GFR ARE PERFORMED USING THE 2020 CKD-EPI STUDY REFIT EQUATION WITHOUT THE RACE VARIABLE FOR THE IDMS-TRACEABLE CREATININE METHODS. https://jasn.asnjournals.org/content//ASN.20 56074676 Performed By: #### C MP #### [address] [address] Glucose [Mass/Vol] 347 mg/dL High 74 - 99 [facility] Comment on above: Performed By: #### C MP #### [address] [place] [address] HCO3 (Bld) [Moles/Vol] 27 mmol/L Normal 21 - 32 [facility] Comment on above: Performed By: #### C MP #### [address] [address] Potassium [Moles/Vol] 4.4 mmol/L Normal 3.5 - 5.3 [facility] Comment on above: Performed By: #### C MP #### [address] [address] Protein [Mass/Vol] 6.0 g/dL Low 6.4 - 8.2 [facility] Comment on above: Performed By: #### C MP #### [address] [address] Sodium [Moles/Vol] 140 mmol/L Normal 136 - 145 [facility] Comment on above: Performed By: #### C MP #### [address] [address] Urea nitrogen [Mass/Vol] 31 mg/dL High 6 - 23 [facility] Comment on above: Performed By: #### C MP #### [address] [address] HEMOGLOBIN A1Con 06-11-2023 Glucose [Mass/Vol] 171 mg/dL Normal [facility] Comment on above: Performed By: #### H BA1E #### [address] [address] HbA1c (Bld) [Mass fraction] 7.6 % Abnormal [facility] Comment on above: Result Comment: Diag nosis of Diabetes-Adults Non-Diabetic: < or = 5.6% Increased risk for developing diabetes: 5.7-6.4% Diagnostic of diabetes: > or = 6.5% . Monitoring of Diabetes Age (y) Therapeutic Goal (%) Adults: >18 <7.0 Pediatrics: 13-18 <7.5 7-12 <8.0 0- 6 7.5-8.5 [place] [employer]. Diabetes Care 33(S1), Nov 2009. Performed By: #### H BA1E #### [address] [address] ALBUMIN, URINE SPOTon 2022 ALBUMIN,URINE 195.3 mg/L Normal Not Established [facility] Comment on above: Performed By: #### A LBSP ####[id number] [place] [address] ALBUMIN/CREAT RATIO 212.5 ug/mg numerologist High 0.0 - 30.0 [facility] Comment on above: Performed By: #### A LBSP ####[id number] [place] [address] CREATININE,URINE 91.9 mg/dL Normal 20.0 - 370.0 [facility] Comment on above: Performed By: #### A LBSP ####[id number] [place] [address] CBC AND DIFFERENTIALon 02-12 % AUTOMATED IMMATURE GRAN 0.3 % Normal 0.0 - 0.9 [facility] Comment on above: Result Comment: Arielle ture Granulocyte Count (IG) includes promyelocytes, myelocytes and metamyelocytes but does not include bands. Percent differential counts (%) should be interpreted in the context of the absolute cell counts (cells/L). Performed By: #### C BCDF #### [address] [address] Basophils (Bld) [#/Vol] 0.09 10*3/uL Normal 0.00 - 0.1 0 [facility] Comment on above: Performed By: #### C BCDF #### [address] [address] Basophils/100 WBC (Bld) 1.2 % Normal 0.0 - 2.0 [facility] Comment on above: Performed By: #### C BCDF #### [address] [address] Eosinophils (Bld) [#/Vol] 0.40 10*3/uL Normal 0.00 - 0 .40 [facility] Comment on above: Performed By: #### C BCDF #### [address] [address] Eosinophils/100 WBC (Bld) 5.2 % Normal 0.0 - 6.0 [facility] Comment on above: Performed By: #### C BCDF #### [address] [address] Erythrocyte distribution width (RBC) [Ratio] 13.1 % Normal 11.5 - 14.5 [facility] Comment on above: Performed By: #### C BCDF #### [address] [address] Hematocrit (Bld) [Volume fraction] 39.5 % Low 41.0 - 52.0 [facility] Comment on above: Performed By: #### C BCDF #### [address] [address] Hemoglobin (Bld) [Mass/Vol] 12.6 g/dL Low 13.5 - 17.5 [facility] Comment on above: Performed By: #### C BCDF #### [address] [address] Lymphocytes (Bld) [#/Vol] 1.68 10*3/uL Normal 0.80 - 3 .00 [facility] Comment on above: Performed By: #### C BCDF #### [address] [address] Lymphocytes/100 WBC (Bld) 21.9 % Normal 13.0 - 44. 0 [facility] Comment on above: Performed By: #### C BCDF #### [address] [address] MCHC (RBC) [Mass/Vol] 31.9 g/dL Low 32.0 - 36.0 [facility] Comment on above: Performed By: #### C BCDF #### [address] [address] MCV (RBC) [Entitic vol] 95 fL Normal 80 - 100 [facility] Comment on above: Performed By: #### C BCDF #### [address] [address] Monocytes (Bld) [#/Vol] 0.57 10*3/uL Normal 0.05 - 0.8 0 [facility] Comment on above: Performed By: #### C BCDF #### [address] [address] Monocytes/100 WBC (Bld) 7.4 % Normal 2.0 - 10.0 [facility] Comment on above: Performed By: #### C BCDF #### [address] [address] Neutrophils (Bld) [#/Vol] 4.91 10*3/uL Normal 1.60 - 5 .50 [facility] Comment on above: Result Comment: Perc ent differential counts (%) should be interpreted in the context of the absolute cell counts (cells/L). Performed By: #### C BCDF #### [address] [address] Neutrophils/100 WBC (Bld) 64.0 % Normal 40.0 - 80. 0 [facility] Comment on above: Performed By: #### C BCDF #### [address] [address] Platelets (Bld) [#/Vol] 229 10*3/uL Normal 150 - 450 [facility] Comment on above: Performed By: #### C BCDF #### [address] [address] RBC 4.18 x10E12/L Low 4.50 - 5.90 [facility] Comment on above: Performed By: #### C BCDF #### [address] [address] WBC (Bld) [#/Vol] 7.7 10*3/uL Normal 4.4 - 11.3 [facility] Comment on above: Performed By: #### C BCDF #### [address] [address] COMPREHENSIVE PANELon 2022 Albumin [Mass/Vol] 4.0 g/dL Normal 3.4 - 5.0 [facility] Comment on above: Performed By: #### C MP #### [address] [address] ALP [Catalytic activity/Vol] 79 U/L Normal 33 - 136 [facility] Comment on above: Performed By: #### C MP #### [address] [address] ALT [Catalytic activity/Vol] 12 U/L Normal 10 - 52 [facility] Comment on above: Result Comment: Twila ents treated with Sulfasalazine may generate falsely decreased results for ALT. Performed By: #### C MP #### [address] [address] Anion gap [Moles/Vol] 10 mmol/L Normal 10 - 20 [facility] Comment on above: Performed By: #### C MP #### [address] [address] AST [Catalytic activity/Vol] 13 U/L Normal 9 - 39 [facility] Comment on above: Performed By: #### C MP #### [address] [address] Bilirubin [Mass/Vol] 0.6 mg/dL Normal 0.0 - 1.2 [facility] Comment on above: Performed By: #### C MP #### [address] [address] Calcium [Mass/Vol] 9.4 mg/dL Normal 8.6 - 10.3 [facility] Comment on above: Performed By: #### C MP #### [address] [address] Chloride [Moles/Vol] 105 mmol/L Normal 98 - 107 [facility] Comment on above: Performed By: #### C MP #### [address] [address] Creatinine [Mass/Vol] 1.69 mg/dL High 0.50 - 1.30 [facility] Comment on above: Performed By: #### C MP #### [address] [address] GFR/1.73 sq M.predicted among non-blacks MDRD (S/P/Bld) [Vol rate/Area] 41 mL/min/{1.73_m2} Abnormal >90 [facility] Comment on above: Result Comment: CALC ULATIONS OF ESTIMATED GFR ARE PERFORMED USING THE 2020 CKD-EPI STUDY REFIT EQUATION WITHOUT THE RACE VARIABLE FOR THE IDMS-TRACEABLE CREATININE METHODS. https://jasn.asnjournals.org/content//ASN.20 60063778 Performed By: #### C MP #### [address] [address] Glucose [Mass/Vol] 253 mg/dL High 74 - 99 [facility] Comment on above: Performed By: #### C MP #### [address] [address] HCO3 (Bld) [Moles/Vol] 28 mmol/L Normal 21 - 32 [facility] Comment on above: Performed By: #### C MP #### [address] [address] Potassium [Moles/Vol] 4.8 mmol/L Normal 3.5 - 5.3 [facility] Comment on above: Performed By: #### C MP #### [address] [address] Protein [Mass/Vol] 6.4 g/dL Normal 6.4 - 8.2 [facility] Comment on above: Performed By: #### C MP #### [address] [address] Sodium [Moles/Vol] 138 mmol/L Normal 136 - 145 [facility] Comment on above: Performed By: #### C MP #### [address] [address] Urea nitrogen [Mass/Vol] 25 mg/dL High 6 - 23 [facility] Comment on above: Performed By: #### C MP #### [address] [address] HEMOGLOBIN A1Con 02-12-2023 Glucose [Mass/Vol] 174 mg/dL Normal [facility] Comment on above: Performed By: #### H BA1E #### [address] [address] HbA1c (Bld) [Mass fraction] 7.7 % Abnormal [facility] Comment on above: Result Comment: Diag nosis of Diabetes-Adults Non-Diabetic: < or = 5.6% Increased risk for developing diabetes: 5.7-6.4% Diagnostic of diabetes: > or = 6.5% . Monitoring of Diabetes Age (y) Therapeutic Goal (%) Adults: >18 <7.0 Pediatrics: 13-18 <7.5 7-12 <8.0 0- 6 7.5-8.5 [place] [employer]. Diabetes Care 33(S1), Nov 2009. Performed By: #### H BA1E #### [address] [address] LIPID PANEL (CORONARY RISK 2 )on 02-12-2023 Cholesterol [Mass/Vol] 154 mg/dL Normal 0 - 199 [facility] Comment on above: Result Comment: . AGE [...] dosing. Performed By: #### L IPID #### [address] [address] Cholesterol in HDL [Mass/Vol] 43.0 mg/dL Normal [facility] Comment on above: Result Comment: . AGE VERY LOW LOW NORMAL HIGH 0-19 Y < 35 < 40 40-45 ---- 20-24 Y ---- < 40 >45 ---- >24 Y ---- < 40 40-60 >60 . Performed By: #### L IPID #### [address] [address] Cholesterol in LDL [Mass/Vol] 96 mg/dL Normal 0 - 99 [facility] Comment on above: Result Comment: . NEAR BORD AGE DESIRABLE OPTIMAL HIGH HIGH VERY HIGH 0-19 Y 0 - 109 --- 110-129 >/= 130 ---- 20-24 Y 0 - 119 --- 120-159 >/= 160 ---- >24 Y 0 - 99 100-129 130-159 160-189 >/=190 . Performed By: #### L IPID #### [address] [address] Cholesterol in VLDL [Mass/Vol] 15 mg/dL Normal 0 - 40 [facility] Comment on above: Performed By: #### L IPID #### [address] [address] Cholesterol.total/Cholest santos in HDL [Mass ratio] 3.6 {ratio} Normal [facility] Comment on above: Result Comment: REF VALUES DESIRABLE < 3.4 HIGH RISK > 5.0 Performed By: #### L IPID #### [address] [address] Triglyceride [Mass/Vol] 77 mg/dL Normal 0 - 149 [facility] Comment on above: Result Comment: . AGE [...] dosing. Performed By: #### L IPID #### [address] [address] PROSTATE SPEC.AG,SCREENon PROSTATE SPEC.AG,SCREEN 3.14 ng/mL Normal 0.00 - 4.00 [facility] Comment on above: Result Comment: The FDA requires that the method used for PSA assay be reported to the physician. Values obtained with different assay methods must not be used interchangeably. This test was performed at [facility] using the Datam PSA assay is a two-site immunoenzymatic sandwich assay. The assay is approved for measurement of prostate-specific antigen (PSA)in serum and may be used in conjunction with a digital rectal examination in men 50 years and older as an aid in detection of prostate cancer. 6-Fyvef-zqrclzupu inhibitors (e.g. Proscar, Finasteride, Avodart, Dutasteride and Al[place] Rosa) for the treatment of BPH have been shown to lower PSA levels by an average of 50% after 6 months of treatment. Performed By: #### P SAS #### [address] [address] THYROXINE,FREEon 02-12-2023 THYROXINE,FREE 1.16 ng/dL High 0.61 - 1.12 [facility] Comment on above: Result Comment: Thyr oxine Free testing is performed using different testing methodology at [facility] than at other [facility]. Direct result comparisons should only [...] draw. Performed By: #### T 4FRE #### [address] [address] TSHon 02-12-2023 TSH Qn 0.73 m[IU]/L Normal 0.44 - 3.98 [facility] Comment on above: Result Comment: TSH testing is performed using different testing methodology at [facility] than at other [facility]. Direct result comparisons should only be made within the same method. Performed By: #### T SH2 #### [address] [address] PT Progress Noteon 3 PT Progress Note [...] . the patient will continue therapy at [facility]. Potential to achieve rehab goals is fair: [...] Declined. Insurance Insurance reviewed Visit number: 10 [facility] Evaluating therapist Shoaib Bhandari PT. The physical [...] code time is 30 minutes. Therapeutic exercise (72877):. Not Today 01/25/23 NuStep 5? Slant board [...] 10 x 10? hold (N). Manual Therapy (47384): timed minutes 15, units 1 . STW to glutes and QL and IT band, hip flexor. Modalities: untimed minutes 15, units 1 . IFC to R Lumbar/Glute region x 10' in S/L w/ MHP. 'Scores and Scales' Signatures Electronically signed by : Zoila Lopez, VIDEO TECHNICIAN; Jan 25 2023 5:14PM EST (Author) Electronically [...] . the patient will continue therapy at [facility]. Potential to achieve rehab goals is fair: [...] code time is 35 minutes. Therapeutic exercise (77510): timed minutes 20, units 1 . Pt [...] . the patient will continue therapy at [facility]. Potential to achieve rehab goals is fair: [...] Declined. Insurance Insurance reviewed Visit number: 9 [facility] Evaluating therapist Shoaib Bhandari PT. The physical [...] code time is 35 minutes. Therapeutic exercise (42012): timed minutes 20, units 1 . Pt [...] disc chops (more content not included)... Normal Touchworks PT Progress Noteon 3 PT [...] . the patient will continue therapy at [facility]. Potential to achieve rehab goals is fair: [...] code time is 38 minutes. Therapeutic exercise (48664): timed minutes 26, units 2 . NuStep [...] 30? D/C to HEP . Manual Therapy (58145): timed minutes 12, units 1 . STW to glutes and QL and IT band. Provided today:. 12/25/22 [id number] Provided and reviewed HEP, patient demosntrated good understanding. 'Scores and Scales' Signatures Electronically signed by : Chaya Morrow (more content not included)... Normal Touchworks PT Progress Noteon 3 PT [...] . the patient will continue therapy at [facility]. Potential to achieve rehab goals is fair: [...] Declined. Insurance Insurance reviewed Visit number: 7 [facility] Evaluating therapist Shoaib Bhandari PT. The physical [...] code time is 38 minutes. Therapeutic exercise (77509): timed minutes 26, units 2 . NuStep [...] 30? D/C to HEP . Manual Therapy (77380): timed minutes 12, units 1 . STW to glutes and QL and IT band. Provided today:. 12/25/22 [id number] Provided and reviewed HEP, patient demosntrated good understanding. 'Scores and Scales' Signatures Electronically signed by : Chaya Chan, VIDEO TECHNICIAN; Jan 13 2023 11:01AM EST (Author) Electronically [...] . the patient will continue therapy at [facility]. Potential to achieve rehab goals is fair: [...] Declined. Insurance Insurance reviewed Visit number: 6 [facility] Evaluating therapist Shoaib Bhandari PT. The physical [...] code time is 43 minutes. Therapeutic exercise (61086): timed minutes 32, units 2 . NuStep [...] x 10 Green band . Manual Therapy (84009): timed minutes 11, units 1 . STW to glutes and QL 10'. Provided today:. 12/25/22 [id number] Provided and reviewed HEP, patient demosntrated good understanding. 'Scores and Scales' Signatures Electronically signed by : Chaya Chan, VIDEO TECHNICIAN; Jan 08 2023 10:51AM EST (Author) Electronically [...] . the patient will continue therapy at [facility]. Potential to achieve rehab goals is fair: [...] Declined. Insurance Insurance reviewed Visit number: 5 [facility] Evaluating therapist Shoaib Bhandari PT. The [...] code time is 44 minutes. Therapeutic exercise (87242): timed minutes 34, units 2 . NuStep [...] 10 Green band (N) . Manual Therapy (44626): timed minutes 10, units 1 . STW to glutes and QL 10'. Provided today:. 12/25/22 [id number] Provided and reviewed HEP, patient demosntrated good understanding. 'Scores and Scales' Signatures Electronically signed by : Zoila Lopez, VIDEO TECHNICIAN; Jan 06 2023 12:41PM EST (Author) Electronically [...] . the patient will continue therapy at [facility]. Potential to achieve rehab goals is fair: [...] code time is 44 minutes. Therapeutic exercise (09397): timed minutes 34, units 2 . NuStep [...] x 10 orange band . Manual Therapy (89942): timed minutes 10, units 1 . STW to glutes and QL 10'. Provided today:. 12/25/22 [id number] Provided and reviewed HEP, patient demosntrated good understanding. 'Scores and Scales' Signatures Electronically signed by : Zoila Lopez VIDEO TECHNICIAN; Jan 01 2023 12:56PM EST (Author) Electronically [...] . the patient will continue therapy at [facility]. Potential to achieve rehab goals is fair: [...] code time is 44 minutes. Therapeutic exercise (23106): timed minutes 34, units 2 . NuStep [...] x 10 orange band . Manual Therapy (33908): timed minutes 10, units 1 . STW to glutes and QL 10'. Provided today:. 12/25/22 [id number] Provided and reviewed HEP, patient demosntrated good understanding. 'Scores and Scales' Signatures Electronically signed by : Zoila Lopez, VIDEO TECHNICIAN; Dec 30 2022 5:01PM EST (Author) Electronically [...] . the patient will continue therapy at [facility]. Potential to achieve rehab goals is fair: [...] Declined. Insurance Insurance reviewed Visit number: 2 [facility] Evaluating therapist Shoaib Bhandari PT. The physical [...] code time is 41 minutes. Therapeutic exercise (00187): timed minutes 31, units 2 . NuStep 5? start wall lean n mini squat x10 LTR x10 5? hold Piriformis stretch 3 x 30? Supine QL stretch 3 x 30? Hip flex stretch EOB TrA x10 5? hold Hooklying TrA/hip add ball 2 x 10 3? hold Hooklying TrA/hip abd 2 x 10 orange band . Manual Therapy (95627): timed minutes 10, units 1 . STW to gluts and QL. Provided today:. 12/25/22 [id number] Provided and reviewed HEP, patient demosntrated good understanding. 'Scores and Scales' Signatures Electronically signed by : Chaya Chan PTA; Dec 25 2022 10:14AM EST (Author) Electronically signed by : Carlene Whitehead, PT; Jan 17 2023 3:06PM EST Normal Touchworks PT Initial Evaluationon 2 PT Initial Evaluation Therapy Diagnosis Assessed DDD [...] . the patient will continue therapy at [facility]. 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 Assessment At least a 5 yr HX of LBP (previous HX of sciatica). No recent film studies have been done. He will be a low fall risk. The patient will continue his therapy at [facility]. Physical findings include limited trunk ROM with [...] Declined. Insurance Insurance reviewed Visit number: 1 [facility] Evaluating therapist Shoaib Bhandari PT. The physical [...] Impact Care:. ID confirmed with B-day; speaks divehi No obtrusive barriers to learning identified/observed. Objective [...] am Time (more content not included)... Normal Finomial US DOPPLER CAROTIDOrdered By : Mary Vargas on 02-26-2021 Patient Info Name: ENOC ARMANDO Age: 75 years : 1945 Gender: Male Exam Date: 02/26/2021 1:55 PM Patient Status: Outpatient Slot Supervisor: Melissa Swift BS, RDMS (AB), RVT Referring Physician: MARY VARGAS ; Indications I65.23 - Occlusion and stenosis of bilateral carotid arteries Procedure Description 29539 Duplex examination using B-mode, color and spectral [...] noted in the (more content not included)... [facility], Rad In Heart[facility] Xper Echopacs - 02/26/2021 4:33 PM EDT Patient Info Name: ENOC ARMANDO Age: 75 years : 1945 Gender: Male Exam Date: 02/26/2021 1:55 PM Patient Status: Outpatient Slot Supervisor: Melissa Swift, TAMMI, RDMS (AB), RVT Referring Physician: MARY VARGAS ; Indications I65.23 - Occlusion and stenosis of bilateral carotid arteries Procedure Description 74995 Duplex examination using B-mode, color and spectral [...] JO-ANN Nguyen DO on 02/26/2021 04:31 PM [facility] Auto Diffon 07-04-2019 Basophils (Bld) [#/Vol] 0.1 E3/mcL Normal 0.0-0.2 [facility] Comment on above: Order Comment: Order Added by Discern Expert. Performed By: #### 2 [id number] #### [facility] [address] [place] [address] Basophils/100 WBC (Bld) 1.2 % Normal 0.0-2.0 [facility] Comment on above: Order Comment: Order Added by Discern Expert. Performed By: #### 2 036976 #### [facility] [address] [place] [address] Eos Absolute 0.2 E3/mcL Normal 0.0-0.7 [facility] Comment on above: Order Comment: Order Added by Discern Expert. Performed By: #### 2 294667 #### [facility] [address] [place] [address] Eosinophils/100 WBC (Bld) 2.0 % Normal 0.0-11.0 [facility] Comment on above: Order Comment: Order Added by Discern Expert. Performed By: #### 2 059361 #### MIKE [employer] [address] [place] [address] Lymphocytes (Bld) [#/Vol] 1.7 E3/mcL Normal 1.2-3.4 [facility] Comment on above: Order Comment: Order Added by Andrew Expert. Performed By: #### 2 479402 #### [facility]KE [facility] [address] [place] [address] Lymphocytes/100 WBC (Bld) 20.9 % Normal 20.0-55.0 [facility] Comment on above: Order Comment: Order Added by Discern Expert. Performed By: #### 2 889349 #### [facility] [address] [place] [address] Sawyer Absolute 0.7 E3/mcL Normal 0.0-0.7 [facility] Comment on above: Order Comment: Order Added by Discern Expert. Performed By: #### 2 551177 #### MIKE [employer] [address] [place] [address] Monocytes/100 WBC (Bld) 8.0 % Normal 0.0-10.0 [facility] Comment on above: Order Comment: Order Added by Discern Expert. Performed By: #### 2 086222 #### [facility]KE [facility] [address] [place] [address] Neutro Absolute 5.5 E3/mcL Normal 1.4-6.5 [facility] Comment on above: Order Comment: Order Added by Discern Expert. Performed By: #### 2 973150 #### [facility] [address] [place] [address] Neutro Auto 67.9 % Normal 37.0-75.0 [facility] Comment on above: Order Comment: Order Added by Discern Expert. Performed By: #### 2 187849 #### [facility] [address] [place] [address] CBC w/ Auto Diffon Erythrocyte distribution width (RBC) [Ratio] 13.3 % Normal 11.5-14.5 [facility] Comment on above: Performed By: #### 2 [id number] #### MIKE Zazueta [address] [place] [address] Hematocrit (Bld) [Volume fraction] 40.4 % Low 42.0-52.0 [facility] Comment on above: Performed By: #### 2 924827 #### MIKE [facility] [place] [address] Hemoglobin (Bld) [Mass/Vol] 13.6 g/dL Normal 13.5-18.0 [facility] Comment on above: Performed By: #### 2 123755 #### MIKE [facility] [address] [place] [address] MCH (RBC) [Entitic mass] 31.6 pg High 27.0-31.0 [facility] Comment on above: Performed By: #### 2 609741 #### [facility] [employer] [address] [place] [address] MCHC (RBC) [Mass/Vol] 33.7 g/dL Normal 33.0-37.0 [facility] Comment on above: Performed By: #### 2 194581 #### MIKE [facility] [place] [address] MCV (RBC) [Entitic vol] 93.8 fL Normal 78.0-100.0 [facility] Comment on above: Performed By: #### 2 496169 #### [facility] [address] [place] [address] Platelet mean volume (Bld) [Entitic vol] 10.2 fL Normal 7.4-11.0 [facility] Comment on above: Performed By: #### 2 281748 #### [facility] [address] [place] [address] Platelets (Bld) [#/Vol] 218 E3/mcL Normal 130-400 [facility] Comment on above: Performed By: #### 2 247480 #### MIKE [facility] [address] [place] [address] RBC (Bld) [#/Vol] 4.31 E6/mcL Normal 3.90-6.10 [facility] Comment on above: Performed By: #### 2 102177 #### MIKE Zazueta [address] [place] [address] WBC (Bld) [#/Vol] 8.1 E3/mcL Normal 3.6-11.0 [facility] Comment on above: Performed By: #### 2 521106 #### MIKE Zazueta [address] [place] [address] CMPon 07-04-2019 Albumin [Mass/Vol] 4.2 g/dL Normal 3.4-5.0 [facility] Comment on above: Performed By: #### 2 014387 #### MIKE [facility] [place] [address] Albumin/Globulin [Mass ratio] 1.8 {ratio} Normal 1.1-1.9 [facility] Comment on above: Performed By: #### 2 586073 #### MIKEAnabelle RodriguezBrand[facility] [address] [place] [address] Alk Phos 81 Int._Unit/L Normal 33-136 [facility] Comment on above: Performed By: #### 2 710998 #### MIKE [facility] [address] [place] [address] ALT [Catalytic activity/Vol] 15 Int._Unit/L Normal 10-52 [facility] Comment on above: Performed By: #### 2 429349 #### [facility] [address] [place] [address] Anion gap [Moles/Vol] 12 mmol/L Normal 10-20 [facility] Comment on above: Performed By: #### 2 844968 #### MIKEAnabelle [facility] [address] [place] [address] AST [Catalytic activity/Vol] 18 Int._Unit/L Normal 9-39 [facility] Comment on above: Performed By: #### 2 245386 #### MIKEAnabelle RodriguezBrandnew [facility] [address] [place] [address] Bili Total 0.35 mg/dL Normal 0.00-1.20 [facility] Comment on above: Performed By: #### 2 060813 #### [facility] [address] [place] [address] Calcium [Mass/Vol] 9.5 mg/dL Normal 8.6-10.3 [facility] Comment on above: Performed By: #### 2 842470 #### [facility] [address] [place] [address] Chloride [Moles/Vol] 108 mmol/L High 98-107 [facility] Comment on above: Performed By: #### 2 893648 #### [facility] [address] [place] [address] CO2 [Moles/Vol] 27.0 mmol/L Normal 21.0-32.0 [facility] Comment on above: Performed By: #### 2 991278 #### [facility] [address] [place] [address] Creatinine [Mass/Vol] 1.0 mg/dL Normal 0.5-1.3 [facility] Comment on above: Performed By: #### 2 672080 #### [facility] [address] [place] [address] Globulin (S) [Mass/Vol] 2.0 g/dL Normal 2.0-4.0 [facility] Comment on above: Performed By: #### 2 789669 #### [facility] [address] [place] [address] Glucose [Mass/Vol] 159 mg/dL High 70-99 [facility] Comment on above: Performed By: #### 2 294485 #### [facility] [address] [place] [address] Potassium [Moles/Vol] 3.7 mmol/L Normal 3.5-5.3 [facility] Comment on above: Performed By: #### 2 192492 #### [facility] [address] [place] [address] Protein [Mass/Vol] 6.5 g/dL Normal 6.4-8.2 [facility] Comment on above: Performed By: #### 2 634991 #### [facility] [address] [place] [address] Sodium [Moles/Vol] 143 mmol/L Normal 136-145 [facility] Comment on above: Performed By: #### 2 944127 #### [facility] [employer] [address] [place] [address] Urea nitrogen [Mass/Vol] 19 mg/dL Normal 6-23 [facility] Comment on above: Performed By: #### 2 161456 #### [facility] [employer] [address] [place] [address] Urea nitrogen/Creatinine [Mass ratio] 19.0 ratio Normal 5.4-30.0 [facility] Comment on above: Performed By: #### 2 753334 #### [facility] [employer] [address] [place] [address] [id number] 07-04-2019 HbA1c (Bld) [Mass fraction] 8.3 % High 4.0-6.3 [facility] Comment on above: Performed By: #### 2 309005 #### [facility] [address] [place] [address] eGFRon 07-04-2019 GFR/1.73 sq M predicted among non-blacks MDRD (S/P/Bld) [Vol rate/Area] mL/min/{1.73_m2} Normal [facility] Comment on above: Order Comment: Order added by Discern Expert. Performed By: #### 2 667577 #### [facility] [employer] [address] [place] [address] Auto Diffon 03-03-2019 Basophils (Bld) [#/Vol] 0.1 E3/mcL Normal 0.0-0.2 [facility] Comment on above: Order Comment: Order Added by Discern Expert. Performed By: #### 2 171208 #### MIKE RodriguezHemo [address] [place] [address] Basophils/100 WBC (Bld) 1.0 % Normal 0.0-2.0 [facility] Comment on above: Order Comment: Order Added by Discern Expert. Performed By: #### 2 617678 #### MIKE RemHemo [address] [place] [address] Eos Absolute 0.2 E3/mcL Normal 0.0-0.7 [facility] Comment on above: Order Comment: Order Added by Discern Expert. Performed By: #### 2 628110 #### MIKE RemHemo [address] [place] [address] Eosinophils/100 WBC (Bld) 2.6 % Normal 0.0-11.0 [facility] Comment on above: Order Comment: Order Added by Discern Expert. Performed By: #### 2 688948 #### MIKE RemHemo [address] [place] [address] Lymphocytes (Bld) [#/Vol] 2.0 E3/mcL Normal 1.2-3.4 [facility] Comment on above: Order Comment: Order Added by Discern Expert. Performed By: #### 2 176831 #### MIKE RemHemo [address] [place] [address] Lymphocytes/100 WBC (Bld) 26.7 % Normal 20.0-55.0 [facility] Comment on above: Order Comment: Order Added by Discern Expert. Performed By: #### 2 977940 #### MIKE RemHemo [address] [place] [address] Sawyer Absolute 0.7 E3/mcL Normal 0.0-0.7 [facility] Comment on above: Order Comment: Order Added by Discern Expert. Performed By: #### 2 626596 #### MIKE RemH[facility] [address] [place] [address] Monocytes/100 WBC (Bld) 9.4 % Normal 0.0-10.0 [facility] Comment on above: Order Comment: Order Added by Discern Expert. Performed By: #### 2 649877 #### MIKE RemHemo [address] [place] [address] Neutro Absolute 4.5 E3/mcL Normal 1.4-6.5 [facility] Comment on above: Order Comment: Order Added by Discern Expert. Performed By: #### 2 279210 #### MIKE RemHemo [address] [place] [address] Neutro Auto 60.3 % Normal 37.0-75.0 [facility] Comment on above: Order Comment: Order Added by Discern Expert. Performed By: #### 2 326801 #### MIKE Ackermano [facility] [place] [address] CBC w/ Auto Diffon Erythrocyte distribution width (RBC) [Ratio] 13.2 % Normal 11.5-14.5 [facility] Comment on above: Performed By: #### 2 408088 #### MIKE Ackermano [address] [place], [place] [address] Hematocrit (Bld) [Volume fraction] 41.7 % Low 42.0-52.0 [facility] Comment on above: Performed By: #### 2 433704 #### [place]KE [place] [address] Hemoglobin (Bld) [Mass/Vol] 14.1 g/dL Normal 13.5-18.0 [facility] Comment on above: Performed By: #### 2 173690 #### MIKE RodriguezHemo [address] [place], [place] [address] MCH (RBC) [Entitic mass] 31.5 pg High 27.0-31.0 [facility] Comment on above: Performed By: #### 2 841026 #### MIKE [place] [address] MCHC (RBC) [Mass/Vol] 33.7 g/dL Normal 33.0-37.0 [facility] Comment on above: Performed By: #### 2 468793 #### MIKE RodriguezHemo [address] [place] [address] MCV (RBC) [Entitic vol] 93.5 fL Normal 78.0-100.0 [facility] Comment on above: Performed By: #### 2 835788 #### MIKE RodriguezHemo [address] [place] [address] Platelet mean volume (Bld) [Entitic vol] 10.0 fL Normal 7.4-11.0 [facility] Comment on above: Performed By: #### 2 165252 #### MIKE RodriguezHemo [address] [place], [place] [address] Platelets (Bld) [#/Vol] 218 E3/mcL Normal 130-400 [facility] Comment on above: Performed By: #### 2 290118 #### MIKE RodriguezHemo [address] [place], [place] [address] RBC (Bld) [#/Vol] 4.46 E6/mcL Normal 3.90-6.10 [facility] Comment on above: Performed By: #### 2 937675 #### MIKE RemHemo [address] [place], [place] [address] WBC (Bld) [#/Vol] 7.5 E3/mcL Normal 3.6-11.0 [facility] Comment on above: Performed By: #### 2 184694 #### MIKE JenniferHemo [address] [place], [place] [address] CMPon 03-03-2019 Albumin [Mass/Vol] 4.1 g/dL Normal 3.4-5.0 [facility] Comment on above: Performed By: #### 2 668541 #### MIKE [employer] [address] [place], [place] [address] Albumin/Globulin [Mass ratio] 1.6 {ratio} Normal 1.1-1.9 [facility] Comment on above: Performed By: #### 2 942789 #### MIKE [employer] [address] [place], [place] [address] Alk Phos 83 Int._Unit/L Normal 33-136 [facility] Comment on above: Performed By: #### 2 614957 #### MIKE [employer] [address] [place], [place] [address] ALT [Catalytic activity/Vol] 13 Int._Unit/L Normal 10-52 [facility] Comment on above: Performed By: #### 2 553270 #### MIKE [employer] [address] [place], [place] [address] Anion gap [Moles/Vol] 9 mmol/L Low 10-20 [facility] Comment on above: Performed By: #### 2 240150 #### MIKE [employer] [address] [place], [place] [address] AST [Catalytic activity/Vol] 16 Int._Unit/L Normal 9-39 [facility] Comment on above: Performed By: #### 2 131331 #### MIKE [employer] [address] [place] [address] Bili Total 0.55 mg/dL Normal 0.00-1.20 [facility] Comment on above: Performed By: #### 2 939794 #### MIKE [employer] [address] [place] [address] Calcium [Mass/Vol] 9.3 mg/dL Normal 8.6-10.3 [facility] Comment on above: Performed By: #### 2 052340 #### MIKE [employer] [address] [place] [address] Chloride [Moles/Vol] 105 mmol/L Normal 98-107 [facility] Comment on above: Performed By: #### 2 021941 #### MIKE [employer] [address] [place] [address]178 CO2 [Moles/Vol] 28.0 mmol/L Normal 21.0-32.0 [facility] Comment on above: Performed By: #### 2 122170 #### MIKE [employer] [address] [place] [address] Creatinine [Mass/Vol] 1.0 mg/dL Normal 0.5-1.3 [facility] Comment on above: Performed By: #### 2 593649 #### MIKE [employer] [address] [place] [address] 31228 Globulin (S) [Mass/Vol] 3.0 g/dL Normal 2.0-4.0 [facility] Comment on above: Performed By: #### 2 442409 #### MIKE [employer] [address] [place] [address]21 Glucose [Mass/Vol] 273 mg/dL High 70-99 [facility] Comment on above: Performed By: #### 2 858114 #### MIKE [employer] [address] [place] [address] Potassium [Moles/Vol] 4.2 mmol/L Normal 3.5-5.3 [facility] Comment on above: Performed By: #### 2 997050 #### MIKE [employer] [address] [place] [address]50[address] Protein [Mass/Vol] 6.6 g/dL Normal 6.4-8.2 [facility] Comment on above: Performed By: #### 2 461706 #### MIKE [facility] [address] [place] [address] 22393 Sodium [Moles/Vol] 138 mmol/L Normal 136-145 [facility] Comment on above: Performed By: #### 2 644009 #### MIKE [employer] [address] [place] [address] 13972 Urea nitrogen [Mass/Vol] 20 mg/dL Normal 6-23 [facility] Comment on above: Performed By: #### 2 047233 #### MIKE [facility] [address] [place] [address] Urea nitrogen/Creatinine [Mass ratio] 20.0 ratio Normal 5.4-30.0 [facility] Comment on above: Performed By: #### 2 678332 #### MIKE [facility] [address] [place] [address] 25099 Free T4on 03-03-2019 Free T4 [Mass/Vol] 0.98 ng/dL Normal 0.58-1.64 [facility] Comment on above: Performed By: #### 2 995384 #### MIKE [employer] [address] [place] [address] 13835 [id number] 03-03-2019 HbA1c (Bld) [Mass fraction] 8.4 % High 4.0-6.3 [facility] Comment on above: Performed By: #### 2 [id number] #### MIKE Zokem [address] [place] [address] Lipid Profileon 03-03-2019 Cholesterol [Mass/Vol] 164 mg/dL Normal 0-199 [facility] Comment on above: Result Comment: TOTA L CHOLEESTEROL: <200 NORMAL 200 - 239 BORDERLINE HIGH >240 HIGH Performed By: #### 2 [id number] #### MIKE Zokem [facility] [place] [address] Cholesterol in HDL [Mass/Vol] 53 mg/dL Normal 40-60 [facility] Comment on above: Performed By: #### 2 [id number] #### MIKE Zokem [facility] [place] [address] Cholesterol in LDL [Mass/Vol] 98 mg/dL Normal 0-130 [facility] Comment on above: Result Comment: <100 OPTIMAL 100-129 NEAR / ABOVE OPTIMAL 130-159 BORDERLINE HIGH 160-189 HIGH >190 VERY HIGH CALC LDL NOT VALID WHEN TRIGLYCERIDE IS >400 MG/DL Performed By: #### 2 [id number] #### MIKE Zokem [facility] [place] [address] Cholesterol in VLDL [Mass/Vol] 13 mg/dL Normal 0-40 [facility] Comment on above: Performed By: #### 2 [id number] #### MIKE Zokem [facility] [place] [address] Triglyceride [Mass/Vol] 66 mg/dL Normal 0-149 [facility] Comment on above: Result Comment: AGE DESIRABLE BORDERLINE HIGH 91 D - 9 Y 0 - 74 75 - 99 > 100 10 - 19 Y 0 - 89 90 - 129 > 130 20 -24 Y 0 - 114 115 - 149 > 150 > 25 0 - 149 150 - 199 200 - 499 Performed By: #### 2 [id number] #### MIKE Zokem [address] [place] [address] Microalb/Creat Ratioon 03-03 Creatinine [Mass/Vol] 111.0 mg/dL Normal 20.0-300.0 [facility] Comment on above: Performed By: #### 1 [id number] #### MIKE [facility] [address] [place] [address] Creatinine [Mass/Vol] 95 ug/mg High 0-30 [facility] Comment on above: Performed By: #### 1 [id number] #### MIKE [facility] [address] [place] [address] Ur Microalbumin 10.6 mg/dL High 0.0-1.9 [facility] Comment on above: Performed By: #### 1 [id number] #### MIKE [facility] [address] [place] [address] TSHon 03-03-2019 TSH Qn 0.52 mcIU/mL Normal 0.30-5.60 [facility] Comment on above: Performed By: #### 2 [id number] #### MIKE [facility] [address] [place] [address] eGFRon 03-03-2019 GFR/1.73 sq M predicted among non-blacks MDRD (S/P/Bld) [Vol rate/Area] mL/min/{1.73_m2} Normal [facility] Comment on above: Order Comment: Order added by Discern Expert. Performed By: #### 1 [id number] #### MIKE [facility] [address] [place] [address] XR Spine Lumbosacral Complet e w/ Bendingon 02-08-2019 XR Spine Lumbosacral Complete w/ Bending Exam Date/Time: 02/08/2019 11:16 EDT Reason for Exam: M54.16 Report STUDY: XR Spine Lumbosacral Complete w/ Bending; 02/08/2019 11:16 am INDICATION: M54.16. COMPARISON: 08/12/2018 ACCESSION NUMBER(S): [id number] ORDERING CLINICIAN: Yamilex Muro FINDINGS: 8 views of the lumbar spine including supine and standing AP, lateral and lateral flexion and extension views were obtained. There is no acute fracture identified. There is mild retrolisthesis of L2 on L3 and of L3 on L4. Uzty-ld-qlovvtze disc space narrowing and marginal osteophyte formation [...] Comment on above: Performed By: #### 2 [id number] #### MIKE [facility] [facility] [place] [address] Albumin/Globulin [Mass ratio] 1.8 {ratio} Normal 1.1-1.9 [facility] Comment on above: Performed By: #### 2 [id number] #### MIKE [facility] [address] [place] [address] Alk Phos 98 Int._Unit/L Normal 33-136 [facility] Comment on above: Performed By: #### 2 [id number] #### MIKE [facility] [address] [place] [address] ALT [Catalytic activity/Vol] 18 Int._Unit/L Normal 10-52 [facility] Comment on above: Performed By: #### 2 [id number] #### MIKE [facility] [address] [place] [address] Anion gap [Moles/Vol] 10 mmol/L Normal 10-20 [facility] Comment on above: Performed By: #### 2 [id number] #### MIKE [facility] [address] [place] [address] AST [Catalytic activity/Vol] 17 Int._Unit/L Normal 9-39 [facility] Comment on above: Performed By: #### 2 [id number] #### MIKE [facility] [address] [place] [address] Bili Total 0.39 mg/dL Normal 0.00-1.20 [facility] Comment on above: Performed By: #### 2 [id number] #### MIKE [facility] [address] [place] [address] Calcium [Mass/Vol] 9.7 mg/dL Normal 8.6-10.3 [facility] Comment on above: Performed By: #### 2 [id number] #### MIKE [facility] [address] [place] [address] Chloride [Moles/Vol] 106 mmol/L Normal 98-107 [facility] Comment on above: Performed By: #### 2 [id number] #### MIKE [facility] [address] [place] [address] CO2 [Moles/Vol] 27.0 mmol/L Normal 21.0-32.0 [facility] Comment on above: Performed By: #### 2 [id number] #### [facility] [address] [place] [address] Creatinine [Mass/Vol] 1.2 mg/dL Normal 0.5-1.3 [facility] Comment on above: Performed By: #### 2 [id number] #### MIKE [facility] [address] [place] [address] Globulin (S) [Mass/Vol] 2.0 g/dL Normal 2.0-4.0 [facility] Comment on above: Performed By: #### 2 [id number] #### MIKE [facility] [address] [place] [address] Glucose [Mass/Vol] 307 mg/dL High 70-99 [facility] Comment on above: Performed By: #### 2 [id number] #### MIKE [facility] [address] [place] [address] Potassium [Moles/Vol] 3.9 mmol/L Normal 3.5-5.3 [facility] Comment on above: Performed By: #### 2 [id number] #### MIKE [employer] [facility] [place] [address] Protein [Mass/Vol] 6.5 g/dL Normal 6.4-8.2 [facility] Comment on above: Performed By: #### 2 [id number] #### MIKE [facility] [address] [place] [address] Sodium [Moles/Vol] 139 mmol/L Normal 136-145 [facility] Comment on above: Performed By: #### 2 [id number] #### MIKE [facility] [address] [place] [address] Urea nitrogen [Mass/Vol] 23 mg/dL Normal 6-23 [facility] Comment on above: Performed By: #### 2 [id number] #### MIKE [facility] [address] [place] [address] Urea nitrogen/Creatinine [Mass ratio] 19.2 ratio Normal 5.4-30.0 [facility] Comment on above: Performed By: #### 2 [id number] #### MIKE [facility] [address] [place] [address] [id number] 11-02-2018 HbA1c (Bld) [Mass fraction] 8.4 % High 4.0-6.3 [facility] Comment on above: Performed By: #### 3 [id number] #### MIKE Chemistry Manual Subsection [address] [place] [address] eGFRon 11-02-2018 GFR/1.73 sq M predicted among non-blacks MDRD (S/P/Bld) [Vol rate/Area] mL/min/{1.73_m2} Normal [facility] Comment on above: Order Comment: Order added by Discern Expert. Performed By: #### 1 [id number] #### MIKE [facility] [address] [place] [address] XR Spine Lumbar w/ Obliqueso n 08-13-2018 XR Spine Lumbar w/ Obliques Exam Date/Time: 08/12/2018 14:38 EDT Reason for Exam: low back pain with left sided sciatica Report STUDY: XR Spine Lumbar w/ Obliques; 08/12/2018 2:38 pm INDICATION: low back pain with left sided sciatica. COMPARISON: None. ACCESSION NUMBER(S): [id number] ORDERING CLINICIAN: Nancy Mirza FINDINGS: Five views of the lumbar spine including AP, lateral, lateral cone-down and bilateral oblique views were obtained. There is no acute fracture identified. There is mild retrolisthesis of L2 on L3 and of L3 on L4. Ubcs-oq-bjsohvme disc space narrowing and marginal osteophyte formation [...] Signed by: Jaret Walker MD Technologist: KAVITA Normal [facility] Carotid Duplexon 02-09-2018 Carotid Duplex Non-Invasive Vascular Patient: TR Titus [facility] Rec#: [id number] (Age): 1945(72y) Study Date: 02/09/2018 Room#: Type: Sex: M Reading: AALIYAH Reading: Flo Abdi DO, RPVI Referring: NANCY MIRZA JOHN Director Plans: Christie Trinidad Procedure Info: [id number]... Study Quality: Carotid Duplex: adequate Diagnosis: I65.23 [...] PM EDT Non-Invasive Vascular Patient: TR Titus [facility] Rec#: [id number] (Age): 1945(72y) Study Date: 02/09/2018 Room#: Type: Sex: M Reading: AALIYAH Reading: Flo Abdi DO, RPVI Referring: NANCY MIRZA JOHN Director Plans: Christie Trinidad Procedure Info: [id number]... Study Quality: Carotid Duplex: adequate Diagnosis: I65.23 [...] Flo Abdi DO, JO-ANN Invalid Interpretation Code [facility] [place] [facility] Vital Signs Date Time Vital Sign Value Performing Clinician Facility 05-01-2025 11:06-0400 Body height 170.2 cm Maricruz BERMAN DNP Work Phone: [facility] 05-01-2025 11:06-0400 Body mass index (BMI) [Ratio] 22.12 kg/m2 Maricruz BERMAN DNP Work Phone: [facility] 05-01-2025 11:06-0400 Body weight 64.05 kg Maricruz BERMAN DNP Work Phone: [facility] 05-01-2025 11:06-0400 Diastolic blood pressure 68 mm[Hg] Maricruz BERMAN DNP Work Phone: [facility] 05-01-2025 11:06-0400 Heart rate 47 /min Maricruz BERMAN DNP Work Phone: [facility] 05-01-2025 11:06-0400 Systolic blood pressure 142 mm[Hg] Maricruz BERMAN DNP Work Phone: [facility] 04-22-2025 13:43-0400 Body temperature 97.5 [degF] Ryley Jeter MD Work Phone: [facility] 04-22-2025 13:43-0400 Diastolic blood pressure 89 mm[Hg] Ryley Jeter MD Work Phone: [facility] 04-22-2025 13:43-0400 Heart rate 112 /min Ryley Jeter MD Work Phone: [facility] 04-22-2025 13:43-0400 Inhaled oxygen flow rate 2 L/min Ryley Jeter MD Work Phone: [facility] 04-22-2025 13:43-0400 Respiratory rate 18 /min Ryley Jeter MD Work Phone: 2(961)428-749500 [address] 04-22-2025 13:43-0400 SaO2% (BldA) [Mass fraction] 100 % Ryley Jeter MD Work Phone: 6(026)584-565187 [place] [address] 04-22-2025 13:43-0400 Systolic blood pressure 138 mm[Hg] Ryley Jeter MD Work Phone: 9(277)999-747234 [place] [address] 04-22-2025 05:31-0400 Body mass index (BMI) [Ratio] 23.6 kg/m2 Ryley Jeter MD Work Phone: 5(536)914-194587 [place] [address] 04-22-2025 05:31-0400 Body weight 66.45 kg Ryley Jeter MD Work Phone: 8(839)119-836000 [address] 04-19-2025 11:24-0400 Body height 167.64 cm Ryley Jeter MD Work Phone: 6(893)758-954400 [address] 04-19-2025 09:21-0400 Inhaled oxygen concentration 45 % Ryley Jeter MD Work Phone: [facility] 04-19-2025 03:00-0400 Body temperature 97.7 [degF] Ryley Jeter MD Work Phone: 2(903)425-201000 [address] 04-19-2025 03:00-0400 Diastolic blood pressure 54 mm[Hg] Ryley Jeter MD Work Phone: [facility] 04-19-2025 03:00-0400 Heart rate 97 /min Ryley Jeter MD Work Phone: [facility] 04-19-2025 03:00-0400 Inhaled oxygen flow rate 50 L/min Ryley Jeter MD Work Phone: [facility] 04-19-2025 03:00-0400 Respiratory rate 16 /min Ryley Jeter MD Work Phone: [facility] 04-19-2025 03:00-0400 SaO2% (BldA) [Mass fraction] 98 % Ryley Jeter MD Work Phone: [facility] 04-19-2025 03:00-0400 Systolic blood pressure 134 mm[Hg] Ryley Jeter MD Work Phone: [facility] 04-19-2025 00:50-0400 Inhaled oxygen concentration 50 % Ryley Jeter MD Work Phone: 3(466)762-145187 [place] [address] 04-19-2025 00:00-0400 Body height 170.18 cm Ryley Jeter MD Work Phone: 1(995)699-279400 [address] 04-19-2025 00:00-0400 Body mass index (BMI) [Ratio] 24.4 kg/m2 Ryley Jeter MD Work Phone: [facility] 04-19-2025 00:00-0400 Body weight 70.76 kg Ryley Jeter MD Work Phone: [facility] 04-10-2025 15:10-0400 Diastolic blood pressure 78 mm[Hg] Ryley Jeter MD Work Phone: 8(413)862-421387 [place] [address] 04-10-2025 15:10-0400 Heart rate 80 /min Ryley Jeter MD Work Phone: [facility] 04-10-2025 15:10-0400 Systolic blood pressure 144 mm[Hg] Ryley Jeter MD Work Phone: [facility] 04-10-2025 15:00-0400 Body temperature 98.1 [degF] Ryley Jeter MD Work Phone: [facility] 04-10-2025 15:00-0400 SaO2% (BldA) [Mass fraction] 95 % Ryley Jeter MD Work Phone: [facility] 04-10-2025 13:39-0400 Respiratory rate 16 /min Ryley Jeter MD Work Phone: [facility] 04-10-2025 09:38-0400 Inhaled oxygen flow rate 2 L/min Ryley Jeter MD Work Phone: [facility] 04-10-2025 09:38-0400 SaO2% (BldA) [Mass fraction] 98 % Ryley Jeter MD Work Phone: [facility] 04-10-2025 08:45-0400 Body temperature 97.9 [degF] Ryley Jeter MD Work Phone: [facility] 04-10-2025 03:42-0400 Body mass index (BMI) [Ratio] 22.3 kg/m2 Ryley Jeter MD Work Phone: 7(849)[phone] [place] [address] 04-10-2025 03:42-0400 Body weight 64.7 kg Ryley Jeter MD Work Phone: [facility] 04-10-2025 00:32-0400 Inhaled oxygen concentration 30 % Ryley Jeter MD Work Phone: [facility] 04-09-2025 14:07-0400 Body height 170.18 cm Ryley Jeter MD Work Phone: [facility] 04-03-2025 05:40-0400 Heart rate 110 /min Ryley Jeter MD Work Phone: [facility] 04-03-2025 05:40-0400 Inhaled oxygen concentration 30 % Ryley Jeter MD Work Phone: [facility] 04-03-2025 05:40-0400 Respiratory rate 21 /min Ryley Jeter MD Work Phone: [facility] 04-03-2025 05:40-0400 SaO2% (BldA) [Mass fraction] 98 % Ryley Jeter MD Work Phone: [facility] 04-03-2025 05:17-0400 Body height 170.18 cm Ryley Jeter MD Work Phone: [facility] 04-03-2025 05:17-0400 Body mass index (BMI) [Ratio] 21.2 kg/m2 Ryley Jeter MD Work Phone: [facility] 04-03-2025 05:17-0400 Body temperature 98 [degF] Ryley Jeter MD Work Phone: [facility] 04-03-2025 05:17-0400 Body weight 61.5 kg Ryley Jeter MD Work Phone: [facility] 04-03-2025 05:17-0400 Diastolic blood pressure 77 mm[Hg] Ryley Jeter MD Work Phone: [facility] 04-03-2025 05:17-0400 Systolic blood pressure 167 mm[Hg] Ryley Jeter MD Work Phone: [facility] 04-03-2025 03:00-0400 Inhaled oxygen flow rate 4 L/min Ryley Jeter MD Work Phone: [facility] 03-12-2025 13:50-0400 Body mass index (BMI) [Ratio] 21.9 kg/m2 Paty Ortega DRAPERY AND UPHOLSTERY MEASURER Work Phone: [facility] 03-12-2025 13:50-0400 Body weight 63.41 kg Paty Ortega DRAPERY AND UPHOLSTERY MEASURER Work Phone: [facility] 03-12-2025 13:50-0400 Diastolic blood pressure 61 mm[Hg] Paty Ortega DRAPERY AND UPHOLSTERY MEASURER Work Phone: [facility] 03-12-2025 13:50-0400 Heart rate 69 /min Paty Ortega DRAPERY AND UPHOLSTERY MEASURER Work Phone: [facility] 03-12-2025 13:50-0400 Systolic blood pressure 166 mm[Hg] Paty Ortega DRAPERY AND UPHOLSTERY MEASURER Work Phone: [facility] 03-09-2025 09:42-0400 Body height 170.2 cm Woo Small MD Work Phone: [facility] 03-09-2025 09:42-0400 Body mass index (BMI) [Ratio] 21.9 kg/m2 Woo Small MD Work Phone: [facility] 03-09-2025 09:42-0400 Body weight 63.41 kg Woo Small MD Work Phone: [facility] 03-09-2025 09:42-0400 Diastolic blood pressure 54 mm[Hg] Woo Small MD Work Phone: [facility] 03-09-2025 09:42-0400 Heart rate 73 /min Woo Small MD Work Phone: [facility] 03-09-2025 09:42-0400 SaO2% (BldA) [Mass fraction] 98 % Woo Small MD Work Phone: [facility] 03-09-2025 09:42-0400 Systolic blood pressure 172 mm[Hg] Woo Small MD Work Phone: [facility] 02-26-2025 13:01-0400 Body height 172.7 cm Ayanna Albert DO Work Phone: [facility] 02-26-2025 13:01-0400 Body mass index (BMI) [Ratio] 21.47 kg/m2 Ayanna Albert DO Work Phone: [facility] 02-26-2025 13:01-0400 Body weight 64.05 kg Ayanna Albert DO Work Phone: [facility] 02-26-2025 13:01-0400 Diastolic blood pressure 68 mm[Hg] Ayanna Albert DO Work Phone: [facility] 02-26-2025 13:01-0400 Heart rate 72 /min Ayanna Albert DO Work Phone: [facility] 02-26-2025 13:01-0400 Systolic blood pressure 158 mm[Hg] Ayanna Albert DO Work Phone: [facility] 11-14-2024 10:44-0500 Diastolic blood pressure 61 mm[Hg] Woo Small MD Work Phone: [facility] 11-14-2024 10:44-0500 Heart rate 57 /min Woo Work Phone: [facility] 11-14-2024 10:44-0500 SaO2% (BldA) [Mass fraction] 96 % Work Phone: [facility] 11-14-2024 10:44-0500 Systolic blood pressure 185 mm[Hg] Woo Work Phone: [facility] 11-14-2024 10:37-0500 Body height 170.2 cm Woo Work Phone: [facility] 11-14-2024 10:37-0500 Body mass index (BMI) [Ratio] 23.57 kg/m2 Work Phone: [facility] 11-14-2024 10:37-0500 Body weight 68.27 kg Woo Work Phone: [facility] 11-13-2024 11:16-0500 Body mass index (BMI) [Ratio] 23.45 kg/m2 Paty Ortega DRAPERY AND UPHOLSTERY MEASURER Work Phone: [facility] 11-13-2024 11:16-0500 Body weight 67.9 kg Paty Ortega DRAPERY AND UPHOLSTERY MEASURER Work Phone: [facility] 11-13-2024 11:16-0500 Diastolic blood pressure 51 mm[Hg] Paty Ortega DRAPERY AND UPHOLSTERY MEASURER Work Phone: [facility] 11-13-2024 11:16-0500 Heart rate 71 /min Paty Ortega DRAPERY AND UPHOLSTERY MEASURER Work Phone: [facility] 11-13-2024 11:16-0500 Systolic blood pressure 107 mm[Hg] Paty Ortega DRAPERY AND UPHOLSTERY MEASURER Work Phone: [facility] 11-09-2024 10:42-0500 Diastolic blood pressure 64 mm[Hg] Kristy Parker MD Work Phone: [facility] 11-09-2024 10:42-0500 Heart rate 58 /min Kristy Parker MD Work Phone: [facility] 11-09-2024 10:42-0500 Systolic blood pressure 160 mm[Hg] Kristy Parker MD Work Phone: [facility] 11-09-2024 10:32-0500 Body height 170.2 cm Kristy Parker MD Work Phone: [facility] 11-09-2024 10:32-0500 Body mass index (BMI) [Ratio] 23.18 kg/m2 Kristy Parker MD Work Phone: [facility] 11-09-2024 10:32-0500 Body weight 67.13 kg Kristy Parker MD Work Phone: [facility] 11-07-2024 09:54-0500 Diastolic blood pressure 61 mm[Hg] Brock Groves MD Work Phone: [facility] 11-07-2024 09:54-0500 Systolic blood pressure 143 mm[Hg] Brock Groves MD Work Phone: [facility] 11-07-2024 09:51-0500 Body height 170.2 cm Brock Groves MD Work Phone: [facility] 11-07-2024 09:51-0500 Body mass index (BMI) [Ratio] 23.02 kg/m2 Brock Groves MD Work Phone: [facility] 11-07-2024 09:51-0500 Body temperature 97.39 [degF] Brock Groves MD Work Phone: [facility] 11-07-2024 09:51-0500 Body weight 66.68 kg Brock Groves MD Work Phone: [facility] 11-07-2024 09:51-0500 Heart rate 63 /min Brock Groves MD Work Phone: [facility] 11-07-2024 09:51-0500 SaO2% (BldA) [Mass fraction] 100 % Brock Groves MD Work Phone: [facility] 10-28-2024 11:06-0500 Diastolic blood pressure 51 mm[Hg] Nidia Garay MD Work Phone: [facility] 10-28-2024 11:06-0500 Heart rate 68 /min Nidia Garay MD Work Phone: [facility] 10-28-2024 11:06-0500 Respiratory rate 14 /min Nidia Garay MD Work Phone: [facility] 10-28-2024 11:06-0500 SaO2% (BldA) [Mass fraction] 94 % Nidia Garay MD Work Phone: [facility] 10-28-2024 11:06-0500 Systolic blood pressure 153 mm[Hg] Nidia Garay MD Work Phone: [facility] 10-28-2024 07:24-0500 Body temperature 97.59 [degF] Nidia Garay MD Work Phone: [facility] 10-28-2024 05:11-0500 Body mass index (BMI) [Ratio] 22.44 kg/m2 Nidia Garay MD Work Phone: [facility] 10-28-2024 05:11-0500 Body weight 65 kg Nidia Garay MD Work Phone: [facility] 10-27-2024 16:36-0500 Body height 170.2 cm Nidia Garay MD Work Phone: [facility] 10-27-2024 14:18-0500 SaO2% (BldA) [Mass fraction] 97.3 % Nidia Garay MD Work Phone: [facility] 10-18-2024 13:46-0500 Diastolic blood pressure 61 mm[Hg] Woo Small MD Work Phone: [facility] 10-18-2024 13:46-0500 Heart rate 67 /min Woo Small MD Work Phone: [facility] 10-18-2024 13:46-0500 SaO2% (BldA) [Mass fraction] 100 % Woo Small MD Work Phone: [facility] 10-18-2024 13:46-0500 Systolic blood pressure 103 mm[Hg] Woo Small MD Work Phone: [facility] 10-18-2024 13:27-0500 Body height 172.7 cm Woo Small MD Work Phone: [facility] 10-18-2024 13:27-0500 Body mass index (BMI) [Ratio] 22.52 kg/m2 Woo Small MD Work Phone: [facility] 10-18-2024 13:27-0500 Body weight 67.18 kg Woo Small MD Work Phone: [facility] 08-29-2024 13:04-0400 Diastolic blood pressure 72 mm[Hg] Ayanna Young DO Work Phone: [facility] 08-29-2024 13:04-0400 Systolic blood pressure 168 mm[Hg] Ayanna Young DO Work Phone: [facility] 08-29-2024 12:57-0400 Body height 172.7 cm Ayanna Young DO Work Phone: [facility] 08-29-2024 12:57-0400 Body mass index (BMI) [Ratio] 22.72 kg/m2 Ayanna Young DO Work Phone: [facility] 08-29-2024 12:57-0400 Body weight 67.77 kg Ayanna Young DO Work Phone: [facility] 08-29-2024 12:57-0400 Heart rate 64 /min Ayanna Young DO Work Phone: [facility] 07-21-2024 14:12-0400 Diastolic blood pressure 68 mm[Hg] Paty Ortega DRAPERY AND UPHOLSTERY MEASURER Work Phone: [facility] 07-21-2024 14:12-0400 Systolic blood pressure 166 mm[Hg] Paty Ortega DRAPERY AND UPHOLSTERY MEASURER Work Phone: [facility] 07-21-2024 13:38-0400 Body mass index (BMI) [Ratio] 22.44 kg/m2 Patyeduar Ortega CNP Work Phone: [facility] 07-21-2024 13:38-0400 Body weight 66.95 kg Paty Jordan HUDSON Work Phone: [facility] 07-21-2024 13:38-0400 Heart rate 69 /min Paty Jordan HUDSON Work Phone: [facility] 04-24-2024 10:09-0400 Diastolic blood pressure 70 mm[Hg] Woo Nini URIBE Work Phone: [facility] Comment on above: Manual 04-24-2024 10:09-0400 Systolic blood pressure 150 mm[Hg] Woomert Small MD Work Phone: [facility] Comment on above: Manual 04-24-2024 09:44-0400 Body height 172.7 cm Woomert Small MD Work Phone: [facility] 04-24-2024 09:44-0400 Body mass index (BMI) [Ratio] 22.43 kg/m2 Woomert Small MD Work Phone: [facility] 04-24-2024 09:44-0400 Body weight 66.91 kg Woomert Small MD Work Phone: [facility] 04-24-2024 09:44-0400 Heart rate 53 /min Woomert Small MD Work Phone: [facility] 04-24-2024 09:44-0400 SaO2% (BldA) [Mass fraction] 96 % Woo Nini URIBE Work Phone: [facility] 02-24-2024 13:44-0400 Body height 172.7 cm Maricruz BERMAN DNP Work Phone: [facility] 02-24-2024 13:44-0400 Body mass index (BMI) [Ratio] 23.11 kg/m2 Maricruz BERMAN DNP Work Phone: [facility] 02-24-2024 13:44-0400 Body weight 68.95 kg Maricruz Albert APRN-DRAPERY AND UPHOLSTERY MEASURER, DNP Work Phone: [facility] 02-24-2024 13:44-0400 Diastolic blood pressure 68 mm[Hg] Maricruz Albert APRN-DRAPERY AND UPHOLSTERY MEASURER, DNP Work Phone: [facility] 02-24-2024 13:44-0400 Heart rate 76 /min Maricruz Albert APRN-DRAPERY AND UPHOLSTERY MEASURER, DNP Work Phone: [facility] 02-24-2024 13:44-0400 Systolic blood pressure 142 mm[Hg] Maricruz Albert APRN-DRAPERY AND UPHOLSTERY MEASURER, DNP Work Phone: [facility] 02-18-2024 12:48-0400 Body mass index (BMI) [Ratio] 23.11 kg/m2 Paty Ortega DRAPERY AND UPHOLSTERY MEASURER Work Phone: [facility] 02-18-2024 12:48-0400 Body weight 68.95 kg Paty Ortega DRAPERY AND UPHOLSTERY MEASURER Work Phone: [facility] 02-18-2024 12:48-0400 Diastolic blood pressure 79 mm[Hg] Paty Ortega DRAPERY AND UPHOLSTERY MEASURER Work Phone: [facility] 02-18-2024 12:48-0400 Heart rate 67 /min Paty Ortega DRAPERY AND UPHOLSTERY MEASURER Work Phone: [facility] 02-18-2024 12:48-0400 Systolic blood pressure 131 mm[Hg] Paty Ortega DRAPERY AND UPHOLSTERY MEASURER Work Phone: [facility] 01-14-2024 11:02-0400 Body height 172.7 cm Aylin Lacy DRAPERY AND UPHOLSTERY MEASURER Work Phone: [facility] 01-14-2024 11:02-0400 Body mass index (BMI) [Ratio] 24.01 kg/m2 Aylin Lacy DRAPERY AND UPHOLSTERY MEASURER Work Phone: [facility] 01-14-2024 11:02-0400 Body weight 71.62 kg Aylin Lacy DRAPERY AND UPHOLSTERY MEASURER Work Phone: [facility] 01-14-2024 11:02-0400 Diastolic blood pressure 78 mm[Hg] Aylin Lacy DRAPERY AND UPHOLSTERY MEASURER Work Phone: [facility] 01-14-2024 11:02-0400 Heart rate 70 /min Aylin Lacy DRAPERY AND UPHOLSTERY MEASURER Work Phone: [facility] 01-14-2024 11:02-0400 SaO2% (BldA) [Mass fraction] 94 % Aylin Lacy DRAPERY AND UPHOLSTERY MEASURER Work Phone: [facility] 01-14-2024 11:02-0400 Systolic blood pressure 139 mm[Hg] Aylin Lacy DRAPERY AND UPHOLSTERY MEASURER Work Phone: [facility] 12-01-2023 08:00-0500 Body temperature 97.9 [degF] Kathleen Story MD Work Phone: [facility] 12-01-2023 08:00-0500 Diastolic blood pressure 73 mm[Hg] Kathleen Story MD Work Phone: [facility] 12-01-2023 08:00-0500 Heart rate 91 /min Kathleen Story MD Work Phone: [facility] 12-01-2023 08:00-0500 Respiratory rate 18 /min Kathleen Story MD Work Phone: [facility] 12-01-2023 08:00-0500 SaO2% (BldA) [Mass fraction] 94 % Kathleen Story MD Work Phone: [facility] 12-01-2023 08:00-0500 Systolic blood pressure 134 mm[Hg] Kathleen Story MD Work Phone: [facility] 12-01-2023 06:00-0500 Body mass index (BMI) [Ratio] 23.96 kg/m2 Kathleen Story MD Work Phone: [facility] 12-01-2023 06:00-0500 Body weight 69.4 kg Kathleen Story MD Work Phone: [facility] 11-27-2023 04:06-0500 SaO2% (BldA) [Mass fraction] 96.0 % Kathleen Story MD Work Phone: [facility] 11-27-2023 03:00-0500 Body height 170.2 cm Kathleen Story MD Work Phone: [facility] 11-27-2023 01:39-0500 Diastolic blood pressure 79 mm[Hg] Ger Bansal DO Work Phone: 8(080)683-682318 [place] [address] 11-27-2023 01:39-0500 Heart rate 77 /min Ger Bansal DO Work Phone: 3(896)558-282218 [place] [address] 11-27-2023 01:39-0500 Respiratory rate 20 /min Ger Bansal DO Work Phone: 8(822)943-674218 [place] [address] 11-27-2023 01:39-0500 SaO2% (BldA) [Mass fraction] 95 % Ger Bansal DO Work Phone: 9(164)345-425918 [place] [address] 11-27-2023 01:39-0500 Systolic blood pressure 148 mm[Hg] Ger Bansal DO Work Phone: 9(547)988-371118 [place] [address] 11-26-2023 21:22-0500 Body height 172.7 cm Ger Bansal DO Work Phone: 3(604)843-482618 [place] [address] 11-26-2023 21:22-0500 Body mass index (BMI) [Ratio] 22.5 kg/m2 Ger Bansal DO Work Phone: 1(164)977-949618 [place] [address] 11-26-2023 21:22-0500 Body temperature 97.11 [degF] Ger Bansal DO Work Phone: 1(917)678-846518 [place] [address] 11-26-2023 21:22-0500 Body weight 67.13 kg Ger Bansal DO Work Phone: 4(835)645-338818 [place] [address] 10-21-2023 08:54-0500 Body height 172.7 cm Woo Small MD Work Phone: [facility] 10-21-2023 08:54-0500 Body mass index (BMI) [Ratio] 22.61 kg/m2 Woo Small MD Work Phone: [facility] 10-21-2023 08:54-0500 Body weight 67.45 kg Woo Small MD Work Phone: [facility] 10-21-2023 08:54-0500 Diastolic blood pressure 67 mm[Hg] Woo Small MD Work Phone: [facility] 10-21-2023 08:54-0500 Heart rate 65 /min Woo Small MD Work Phone: [facility] 10-21-2023 08:54-0500 SaO2% (BldA) [Mass fraction] 99 % Woo Small MD Work Phone: [facility] 10-21-2023 08:54-0500 Systolic blood pressure 128 mm[Hg] Woo Small MD Work Phone: [facility] 10-13-2023 11:55-0500 SaO2% (BldA) [Mass fraction] 92 % rPaful Pineda MD Work Phone: [facility] 10-13-2023 10:39-0500 Heart rate 97 /min Praful Pineda MD Work Phone: [facility] 10-13-2023 09:35-0500 Body height 171.5 cm Praful Pineda MD Work Phone: [facility] 10-13-2023 09:35-0500 Body mass index (BMI) [Ratio] 24.38 kg/m2 Praful Pineda MD Work Phone: [facility] 10-13-2023 09:35-0500 Body weight 71.7 kg Praful Pineda MD Work Phone: [facility] 10-12-2023 20:45-0500 Body temperature 98.1 [degF] Praful Pineda MD Work Phone: [facility] 10-12-2023 20:45-0500 Diastolic blood pressure 85 mm[Hg] Praful Pineda MD Work Phone: [facility] 10-12-2023 20:45-0500 Respiratory rate 16 /min Praful Pineda MD Work Phone: [facility] 10-12-2023 20:45-0500 Systolic blood pressure 123 mm[Hg] Praful Pineda MD Work Phone: [facility] 10-11-2023 01:56-0500 Body temperature 37.0 Praful Pineda MD Work Phone: [facility] 10-11-2023 01:56-0500 SaO2% (BldA) [Mass fraction] 93 % Praful Pineda MD Work Phone: [facility] 10-08-2023 11:12-0500 Diastolic blood pressure 66 mm[Hg] Mary Vargas MD Work Phone: [facility] 10-08-2023 11:12-0500 Heart rate 67 /min Mary Vargas MD Work Phone: [facility] 10-08-2023 11:12-0500 Systolic blood pressure 199 mm[Hg] Mary Vargas MD Work Phone: [facility] 10-08-2023 11:05-0500 Body mass index (BMI) [Ratio] 24.18 kg/m2 Mary Vargas MD Work Phone: [facility] 10-08-2023 11:05-0500 Body weight 72.12 kg Mary Vargas MD Work Phone: [facility] 08-25-2023 14:11-0400 Body weight 72.12 kg Ayanna Albert DO Work Phone: [facility] 08-25-2023 14:11-0400 Diastolic blood pressure 62 mm[Hg] Ayanna Albert DO Work Phone: [facility] 08-25-2023 14:11-0400 Heart rate 62 /min Ayanna Albert DO Work Phone: [facility] 08-25-2023 14:11-0400 Systolic blood pressure 144 mm[Hg] Ayanna Albert Work Phone: [facility] 07-27-2023 14:48-0400 Diastolic blood pressure 78 mm[Hg] Nancy Mirza Work Phone: [facility] Work Phone: 07-27-2023 14:48-0400 Systolic blood pressure 152 mm[Hg] Nancy Mirza Work Phone: [facility] Work Phone: 07-27-2023 14:45-0400 Body height 172.72 cm Nancy Mirza Work Phone: [facility] Work Phone: 07-27-2023 14:45-0400 Body mass index (BMI) [Ratio] 24.05 kg/m2 Nancy Mirza Work Phone: [facility] Work Phone: 07-27-2023 14:45-0400 Body surface area Derived from formula 1.85 m2 Nancy Mirza Work Phone: [facility] Work Phone: 07-27-2023 14:45-0400 Body weight 71.76 kg Nancy Mirza Work Phone: [facility] Work Phone: 07-27-2023 14:45-0400 Diastolic blood pressure 88 mm[Hg] Nancy Mirza Work Phone: [facility] Work Phone: 07-27-2023 14:45-0400 Heart rate 70 /min Nancy Mirza Work Phone: [facility] Work Phone: 07-27-2023 14:45-0400 SaO2% (BldA) [Mass fraction] 97 % Nancy Tabareszonia Work Phone: [facility] Work Phone: 07-27-2023 14:45-0400 Systolic blood pressure 160 mm[Hg] Nancy Tabareszonia Work Phone: [facility] Work Phone: 02-19-2023 13:02-0400 Body mass index (BMI) [Ratio] 24.33 kg/m2 Paty Ortega DRAPERY AND UPHOLSTERY MEASURER Work Phone: [facility] 02-19-2023 13:02-0400 Body weight 72.58 kg Paty Ortega DRAPERY AND UPHOLSTERY MEASURER Work Phone: [facility] 02-19-2023 13:02-0400 Diastolic blood pressure 83 mm[Hg] Paty Ortega DRAPERY AND UPHOLSTERY MEASURER Work Phone: [facility] 02-19-2023 13:02-0400 Heart rate 73 /min Paty Ortega DRAPERY AND UPHOLSTERY MEASURER Work Phone: [facility] 02-19-2023 13:02-0400 Systolic blood pressure 116 mm[Hg] Paty Ortega DRAPERY AND UPHOLSTERY MEASURER Work Phone: [facility] 10-19-2022 10:01-0500 Diastolic blood pressure 69 mm[Hg] Paty Ortega DRAPERY AND UPHOLSTERY MEASURER Work Phone: [facility] 10-19-2022 10:01-0500 Heart rate 89 /min Paty Ortega DRAPERY AND UPHOLSTERY MEASURER Work Phone: [facility] 10-19-2022 10:01-0500 Systolic blood pressure 149 mm[Hg] Paty Ortega DRAPERY AND UPHOLSTERY MEASURER Work Phone: [facility] 10-19-2022 09:56-0500 Body mass index (BMI) [Ratio] 24.04 kg/m2 Paty Ortega DRAPERY AND UPHOLSTERY MEASURER Work Phone: [facility] 10-19-2022 09:56-0500 Body weight 71.71 kg Paty Ortega DRAPERY AND UPHOLSTERY MEASURER Work Phone: [facility] 06-19-2022 10:04-0400 Diastolic blood pressure 90 mm[Hg] Paty Ortega DRAPERY AND UPHOLSTERY MEASURER Work Phone: [facility] 06-19-2022 10:04-0400 Systolic blood pressure 184 mm[Hg] Paty Ortega DRAPERY AND UPHOLSTERY MEASURER Work Phone: [facility] 06-19-2022 09:40-0400 Heart rate 72 /min Paty Ortega DRAPERY AND UPHOLSTERY MEASURER Work Phone: [facility] 06-19-2022 09:36-0400 Body height 172.7 cm Paty Ortega DRAPERY AND UPHOLSTERY MEASURER Work Phone: [facility] 06-19-2022 09:36-0400 Body mass index (BMI) [Ratio] 24.48 kg/m2 Patyeduar Ortega DRAPERY AND UPHOLSTERY MEASURER Work Phone: [facility] 06-19-2022 09:36-0400 Body weight 73.03 kg Paty Ortega DRAPERY AND UPHOLSTERY MEASURER Work Phone: [facility] 02-13-2022 11:13-0400 Diastolic blood pressure 74 mm[Hg] Mary Vargas MD Work Phone: [facility] 02-13-2022 11:13-0400 Systolic blood pressure 138 mm[Hg] Mary Vargas MD Work Phone: [facility] 02-13-2022 11:09-0400 Body height 172.7 cm Mary Vargas MD Work Phone: [facility] 02-13-2022 11:09-0400 Body mass index (BMI) [Ratio] 25.09 kg/m2 Mary Vargas MD Work Phone: [facility] 02-13-2022 11:09-0400 Body weight 74.84 kg Mary Vargas MD Work Phone: [facility] 02-13-2022 11:09-0400 Heart rate 71 /min Mary Vargas MD Work Phone: [facility] 10-13-2021 14:07-0500 Diastolic blood pressure 72 mm[Hg] Paty Ortega DRAPERY AND UPHOLSTERY MEASURER Work Phone: [facility] 10-13-2021 14:07-0500 Heart rate 74 /min Paty Ortega DRAPERY AND UPHOLSTERY MEASURER Work Phone: [facility] 10-13-2021 14:07-0500 Systolic blood pressure 163 mm[Hg] Paty Ortega DRAPERY AND UPHOLSTERY MEASURER Work Phone: [facility] 10-13-2021 13:59-0500 Body mass index (BMI) [Ratio] 24.89 kg/m2 Paty Ortega DRAPERY AND UPHOLSTERY MEASURER Work Phone: [facility] 10-13-2021 13:59-0500 Body weight 74.25 kg Paty Ortega DRAPERY AND UPHOLSTERY MEASURER Work Phone: [facility] 06-20-2021 14:38-0400 Diastolic blood pressure 68 mm[Hg] Paty Ortega DRAPERY AND UPHOLSTERY MEASURER Work Phone: [facility] 06-20-2021 14:38-0400 Heart rate 70 /min Paty Ortega DRAPERY AND UPHOLSTERY MEASURER Work Phone: [facility] 06-20-2021 14:38-0400 Systolic blood pressure 163 mm[Hg] Paty Ortega DRAPERY AND UPHOLSTERY MEASURER Work Phone: [facility] 06-20-2021 14:33-0400 Body height 172.7 cm Payt Ortega DRAPERY AND UPHOLSTERY MEASURER Work Phone: [facility] 06-20-2021 14:33-0400 Body mass index (BMI) [Ratio] 25.32 kg/m2 Paty Ortega DRAPERY AND UPHOLSTERY MEASURER Work Phone: [facility] 06-20-2021 14:33-0400 Body weight 75.52 kg Paty Ortega DRAPERY AND UPHOLSTERY MEASURER Work Phone: [facility] 02-18-2021 15:24-0400 Body height 172.7 cm Mary Vargas MD Work Phone: [facility] 02-18-2021 15:24-0400 Body mass index (BMI) [Ratio] 25.54 kg/m2 Mary Vargas MD Work Phone: [facility] 02-18-2021 15:24-0400 Body weight 76.2 kg Mary Vargas MD Work Phone: [facility] 02-18-2021 15:24-0400 Diastolic blood pressure 70 mm[Hg] Mary Vargas MD Work Phone: [facility] 02-18-2021 15:24-0400 Heart rate 76 /min Mary Vargas MD Work Phone: [facility] 02-18-2021 15:24-0400 Systolic blood pressure 194 mm[Hg] Mary Vargas MD Work Phone: [facility] 10-18-2020 13:36-0500 BMI (Body Mass Index) 25.54 kg/m2 [facility] 10-18-2020 13:36-0500 Body weight 76.2 kg [facility] 10-18-2020 13:36-0500 BP Diastolic 69 mm[Hg] [facility] 10-18-2020 13:36-0500 BP Systolic 163 mm[Hg] [facility] 10-18-2020 13:36-0500 Height 172.7 cm [facility] 10-18-2020 13:36-0500 Pulse (Heart Rate) 72 /min [facility] 06-18-2020 10:01-0400 BMI (Body Mass Index) 25.39 kg/m2 [facility] 06-18-2020 10:01-0400 Body weight 75.75 kg [facility] 06-18-2020 10:01-0400 BP Diastolic 71 mm[Hg] [facility] 06-18-2020 10:01-0400 BP Systolic 172 mm[Hg] [facility] 06-18-2020 10:01-0400 Height 172.7 cm [facility] 06-18-2020 10:01-0400 Pulse (Heart Rate) 72 /min [facility] 11-16-2019 10:40-0500 BMI (Body Mass Index) 25.09 kg/m2 [facility] 11-16-2019 10:40-0500 Body weight 74.84 kg Paty Ortega [facility] 11-16-2019 10:40-0500 BP Diastolic 68 mm[Hg] Paty Ortega [facility] 11-16-2019 10:40-0500 BP Systolic 178 mm[Hg] Paty Ortega [facility] 11-16-2019 10:40-0500 Height 172.7 cm Paty Ortega [facility] 11-16-2019 10:40-0500 Pulse (Heart Rate) 75 /min Paty Ortega [facility] 07-17-2019 10:48-0400 BMI (Body Mass Index) 25.09 kg/m2 Keeley Patton [facility] 07-17-2019 10:48-0400 Body weight 74.84 kg Keeley Patton [facility] 07-17-2019 10:48-0400 BP Diastolic 69 mm[Hg] Keeley Patton [facility] 07-17-2019 10:48-0400 BP Systolic 152 mm[Hg] Keeley Patton [facility] 07-17-2019 10:48-0400 Height 172.7 cm Keeleymarlene Patton [facility] 07-17-2019 10:48-0400 Pulse (Heart Rate) 71 /min Keeley Patton [facility] 03-13-2019 12:07-0400 BMI (Body Mass Index) 25.24 kg/m2 Mary Vargas [facility] 03-13-2019 12:07-0400 Body weight 75.3 kg Mary Vargas [facility] 03-13-2019 12:07-0400 BP Diastolic 67 mm[Hg] Mary Vargas [facility] 03-13-2019 12:07-0400 BP Systolic 160 mm[Hg] Mary Vargas [facility] 03-13-2019 12:07-0400 Height 172.7 cm Mary Vargas [facility] 03-13-2019 12:07-0400 Pulse (Heart Rate) 72 /min Mary Vargas [facility] 11-11-2018 11:08-0500 BMI (Body Mass Index) 26 kg/m2 Keeley Patton [facility] 11-11-2018 11:08-0500 BP Diastolic 74 mm[Hg] Keeley Patton [facility] 11-11-2018 11:08-0500 BP Systolic 172 mm[Hg] Keeley Patton [facility] 11-11-2018 11:08-0500 Height 172.7 cm Keeley Patton [facility] 11-11-2018 11:08-0500 Pulse (Heart Rate) 71 /min Keeley Patton [facility] 11-11-2018 11:08-0500 Weight 77.56 kg Keeley Patton [facility] 07-05-2018 10:05-0400 BMI (Body Mass Index) 25.48 kg/m2 [facility] 07-05-2018 10:05-0400 BP Diastolic 58 mm[Hg] [facility] 07-05-2018 10:05-0400 BP Systolic 130 mm[Hg] [facility] 07-05-2018 10:05-0400 Height 172.7 cm [facility] 07-05-2018 10:05-0400 Pulse (Heart Rate) 84 /min [facility] 07-05-2018 10:05-0400 Weight 76.02 kg [facility] 02-28-2018 10:14-0400 BMI (Body Mass Index) 26.15 kg/m2 [facility] 02-28-2018 10:14-0400 BP Diastolic 64 mm[Hg] [facility] 02-28-2018 10:14-0400 BP Systolic 154 mm[Hg] [facility] 02-28-2018 10:14-0400 Height 172.7 cm [facility] 02-28-2018 10:14-0400 Pulse (Heart Rate) 76 /min [facility] 02-28-2018 10:14-0400 Weight 78.02 kg [facility] 10-29-2017 10:08-0500 BMI (Body Mass Index) 25.24 kg/m2 Mary Vargas [facility] Work Phone: 10-29-2017 10:08-0500 BP Diastolic 64 mm[Hg] Marymarquise Vargas [facility] Work Phone: 10-29-2017 10:08-0500 BP Systolic 142 mm[Hg] Mary Vargas [facility] Work Phone: 10-29-2017 10:08-0500 Height 172.7 cm Mary Vargas [facility] Work Phone: 10-29-2017 10:08-0500 Pulse (Heart Rate) 72 /min Mary Vargas [facility] Work Phone: 10-29-2017 10:08-0500 Weight 75.3 kg Mary Vargas [facility] Work Phone: 06-17-2017 11:04-0400 BMI (Body Mass Index) 24.78 kg/m2 Ya Parker [facility] Work Phone: 06-17-2017 11:04-0400 BP Diastolic 62 mm[Hg] Ya Parker [facility] Work Phone: 06-17-2017 11:04-0400 BP Systolic 148 mm[Hg] Ya Parker [facility] Work Phone: 06-17-2017 11:04-0400 Height 172.7 cm Ya Parker [facility] Work Phone: 06-17-2017 11:04-0400 Pulse (Heart Rate) 64 /min Ya Parker [facility] Work Phone: 06-17-2017 11:04-0400 Weight 73.94 kg Ya Parker [facility] Work Phone: Encounters Encounter Date Encounter Type Care Provider Facility Start: 05-09-2025 ambulatory Ryley Steffany Facility:[facility] Start: 05-01-2025 End: 05-01-[address] 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 Breezy chavez MD -[facility] Start: 04-22-2025 Dr. Malika Fonseca [facility] Work Phone: Start: 04-21-2025 Dr. [address] chavez MD [facility] Start: 04-21-2025 Dr. Malika Fonseca [facility] Work Phone: Start: 04-20-2025 Dr. Bree[address] chavez MD [facility] Start: 04-20-2025 Dr. Ger lora [facility] Work Phone: Start: 04-19-2025 ambulatory Nancy Rizzo [facility] ty:[facility] Start: 04-19-2025 End: 04-22-2025 Evaluation and management of inpatient Ryley Jeter MD Work Phone: [facility] Work Phone: Start: 04-19-2025 End: 04-22-2025 Dr. Nancy Rizzo -Intensive Care Unit Work Phone: Start: 04-16-2025 End: 04-17-2025 Refill Ej Guidry [facility] Comment on above: Medication Refill Type 1 diabetes suzie itus with diabetic neuropathy (HCC) Start: 04-12-2025 ambulatory RYLEY JETER [facility] Ambulatory Start: 04-10-2025 Dr. Grace sepulveda MD [facility] Work Phone: Start: 04-09-2025 Non-patient / Non-visit Dr. Kesha Arnold MD [facility] Work Phone: Start: 04-09-2025 Dr. Grace sepulveda MD [facility] Work Phone: Start: 04-08-2025 Non-patient / Non-visit Dr. Cassandra Moore MD [facility] Work Phone: Start: 04-08-2025 Dr. Jose Moore MD [facility] Work Phone: Start: 04-07-2025 Non-patient / Non-visit Dr. Cassandra Moore MD [facility] Work Phone: Start: 04-07-2025 Dr. Jose Moore [facility] Work Phone: Start: 04-06-2025 Non-patient / Non-visit Dr. Cassandra Moore MD [facility] Work Phone: Start: 04-06-2025 Dr. Jose Moore MD [facility] Work Phone: Start: 04-06-2025 Non-patient / Non-visit Dr. Rosetta URI[facility] Start: 04-06-2025 Dr. Smooth almanza MD [facility] Start: 04-06-2025 Non-patient / Non-visit Dr. Landry August own [facility] Start: 04-06-2025 [facility] Start: 04-05-2025 Non-patient / Non-visit Dr. Rosetta [facility] Start: 04-05-2025 Dr. Smooth almanza MD [facility] Start: 04-05-2025 Non-patient / Non-visit Dr. Kesha Martin MD [facility] Start: 04-05-2025 Dr. Barbie Martin MD [facility] Start: 04-05-2025 Non-patient / Non-visit Dr. Kesha Arnold MD [facility] Work Phone: Start: 04-05-2025 Dr. Grace sepulveda MD [facility] Work Phone: Start: 04-05-2025 Non-patient / Non-visit Dr. Landry August own [facility] Start: 04-05-2025 Dr[facility] Start: 04-04-2025 Non-patient / Non-visit Dr. Kesha Arnold MD [facility] Work Phone: Start: 04-04-2025 Dr. Grace sepulveda MD -[facility] Work Phone: Start: 04-03-2025 ambulatory Ryley Jeter Facility:[facility] Start: 04-03-2025 Non-patient / Non-visit Dr. Koffi langley MD -[facility] Start: 04-03-2025 Dr. Koffi Gibbs MD -[facility] Start: 04-03-2025 ambulatory Dyana Hwang Facility :[facility] Start: 04-03-2025 End: 04-10-2025 Evaluation and management of inpatient Dr. Dyana Hwang MD -Intensive Care Unit Work Phone: Start: 04-03-2025 End: 04-10-2025 Dr. Grace Arnold MD -Progressive Care Unit Work Phone: Start: 03-29-2025 End: 03-29-2025 ambulatory WOO SMALL [facility] Start: 03-27-2025 End: 03-27-2025 Follow-up encounter Woo Small MD Work Phone: [facility] Comment on above: Basic metabolic pane l Start: 03-12-2025 End: 03-12-2025 Office outpatient visit 25 minutes Paty Ortega [facility] Work Phone: [facility] [place] Comment on above: Type 1 diabetes suzie itus with diabetic neuropathy (HCC) (Primary Dx); Pure hypercholesterolemia; Essential hypertension Start: 03-12-2025 End: 03-12-2025 ambulatory PATY ORTEGA [facility] Ambulatory Start: 03-09-2025 End: 03-09-2025 Office outpatient visit 25 minutes Woo Small MD Work Phone: [facility] Comment on above: Coronary artery dise 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 (Primary Dx); NSTEMI (non-ST elevated myocardial infarction) (HCC); Hospital discharge follow-up Start: 03-09-2025 End: 03-09-2025 ambulatory RYLEY JETER [facility] Ambulatory Start: 02-28-2025 End: 03-05-2025 Evaluation and management of inpatient [facility] Start: 02-26-2025 End: 02-26-2025 Office outpatient visit 15 minutes Ayanna Albert DO Work Phone: [facility] Comment on above: 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); Essential hypertension; Pure hypercholesterolemia; Type 1 diabetes mellitus with diabetic neuropathy Start: 02-26-2025 End: 02-26-2025 ambulatory AYANNA Sudha [facility] Ambulatory Start: 02-16-2025 End: 02-16-2025 Refill aPty Ortega DRAPERY AND UPHOLSTERY MEASURER Work Phone: [facility] Comment on above: Type 1 diabetes suzie itus with diabetic neuropathy (HCC) (Primary Dx) Start: 02-14-2025 End: 02-14-2025 Documentation procedure Ej Guidry MA [facility] Comment on above: Letter refaxed Start: 02-12-2025 End: 02-13-2025 Orders Only Paty Ortega DRAPERY AND UPHOLSTERY MEASURER Work Phone: [facility] Start: 02-09-2025 Encounter for other preprocedural examination Kerwin Tamayo [facility] Start: 02-06-2025 End: 02-06-2025 ambulatory Ryley Jeter MD Work Phone: [facility] Work Phone: Start: 02-06-2025 End: 02-06-[address] Kerwin Tamayo MD -Laboratory, [facility] Start: 02-06-2025 End: 02-06-2025 Dr. Kerwin Tamayo MD -Laboratory [facility] Start: 02-06-2025 End: 02-06-2025 ambulatory Ryley Jeter Facility:[facility] Start: 01-01-2025 End: 01-01-2025 Refill Paty Ortega DRAPERY AND UPHOLSTERY MEASURER Work Phone: [facility] Comment on above: Type 1 diabetes suzie itus with diabetic neuropathy (HCC) (Primary Dx) Start: 12-08-2024 End: 12-08-2024 Refill Paty Ortega CNP Work Phone: [facility] Comment on above: Type 1 diabetes suzie itus with diabetic neuropathy (HCC) Start: 11-20-2024 End: 11-20-2024 Refill Paty Ortega DRAPERY AND UPHOLSTERY MEASURER Work Phone: [facility] Start: 11-14-2024 End: 11-14-2024 Office outpatient visit 25 minutes Woo Small MD Work Phone: [facility] Comment on above: Coronary artery dise 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 (Primary Dx); Claudication in peripheral vascular disease; Bilateral carotid artery stenosis Start: 11-14-2024 End: 11-14-2024 ambulatory [facility] Start: 11-13-2024 End: 11-13-2024 Office outpatient visit 25 minutes Paty Ortega CNP Work Phone: [facility] [place] Comment on above: Type 1 diabetes suzie itus with diabetic neuropathy (HCC) (Primary Dx); Pure hypercholesterolemia; Essential hypertension Start: 11-13-2024 End: 11-13-2024 ambulatory [facility] TUCKER STEFFANY [facility] Ambulatory Start: 11-09-2024 End: 11-09-2024 Office outpatient new 60 minutes Sandi Phan PA-C Work Phone: [facility] Comment on above: Bilateral carotid ar radha stenosis Start: 11-09-2024 End: 11-09-2024 ambulatory SANDI PHAN [facility] Ambulatory Start: 11-07-2024 End: 11-07-2024 Office outpatient new 45 minutes Brock Groves MD Work Phone: [facility] Comment on above: Coronary artery dise 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 (Primary Dx) Start: 11-07-2024 End: 11-11-2024 Orders Only Sandi Phan PA-C Work Phone: [facility] Comment on above: Bilateral carotid ar radha stenosis (Primary Dx) Start: 11-06-2024 End: 11-07-2024 Refill Paty Ortega DRAPERY AND UPHOLSTERY MEASURER Work Phone: [facility] Comment on above: Type 1 diabetes suzie itus with diabetic neuropathy (HCC) (Primary Dx) Start: 10-27-2024 End: 10-28-2024 ambulatory [facility] Start: 10-27-2024 End: 10-28-2024 Emergency department patient visit Elías Rodriguez MD Work Phone: [facility] Start: 10-23-2024 End: 10-23-2024 Chart abstracting Ej Guidry MA [facility] Comment on above: Medication Refill Start: 10-18-2024 End: 10-18-2024 Office outpatient visit 25 minutes Woo Small MD Work Phone: [facility] Comment on above: Claudication in sheyla pheral vascular disease (HCC) (Primary Dx); Encounter for examination of blood pressure with abnormal findings; 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; Congestive heart failure, unspecified HF chronicity, unspecified heart failure type (HCC); Hypertensive emergency Start: 10-18-2024 End: 10-18-2024 Patient encounter status Woo Small MD Work Phone: [facility] Start: 10-18-2024 End: 10-18-2024 ambulatory WOO SMALL [facility] Ambulatory Start: 10-18-2024 End: 10-18-2024 Encounter for examination of blood pressure with abnormal findings WOO SMALL [facility] Ambulatory Start: 10-06-2024 End: 10-06-2024 Refill Luisa Easley RN [facility] Start: 10-04-2024 ambulatory EJ GUIDRY [facility] Ambulatory Start: 09-28-2024 ambulatory [facility]YLEY JETER [facility] Start: 09-26-2024 End: 09-26-2024 Refill Paty Ortega DRAPERY AND UPHOLSTERY MEASURER Work Phone: [facility] Comment on above: Type 1 diabetes suzie itus with diabetic neuropathy (HCC) (Primary Dx) Start: 09-21-2024 End: 09-21-2024 ambulatory [facility] Facility:[facility] Start: 09-13-2024 ambulatory [facility] Steffany [facility] Start: 09-12-2024 ambulatory Ryley Steffany [facility] Start: 09-12-2024 End: 09-14-2024 Evaluation and management of inpatient Young Koroma Facility:[facility] Start: 09-12-2024 ambulatory Young Koroma [facility] Start: 08-29-2024 End: 08-29-2024 Office outpatient visit 15 minutes Ayanna Albert DO Work Phone: [facility] Comment on above: 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); Essential hypertension; Type 1 diabetes mellitus with diabetic neuropathy Start: 08-29-2024 End: 08-29-2024 ambulatory [facility] Ambulatory Start: 07-21-2024 End: 07-21-2024 Office outpatient visit 25 minutes Paty Ortega DRAPERY AND UPHOLSTERY MEASURER Work Phone: [facility] [place] Comment on above: Type 1 diabetes suzie itus with diabetic neuropathy (HCC) (Primary Dx); Pure hypercholesterolemia; Essential hypertension Start: 07-21-2024 End: 07-21-2024 [facility]ulatory [facility] Ambulatory Start: 07-07-2024 End: 07-07-2024 ambulatory NO ASSIGNED PCP GENERIC PROVIDER [facility] Start: 05-17-2024 End: 05-17-2024 [facility] Facility:[facility] Start: 04-24-2024 End: 04-24-2024 Office outpatient visit 25 minutes Woo Small MD Work Phone: [facility] Comment on above: 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 (Primary Dx); Primary hypertension; Dyslipidemia Start: 03-28-2024 Refill Ej Guidry MA [facility] Comment on above: Medication Refill Start: 03-06-2024 Refill Paty Ortega DRAPERY AND UPHOLSTERY MEASURER Work Phone: [facility] [place] Comment on above: Type 1 diabetes suzie itus with diabetic neuropathy (HCC) Start: 02-24-2024 End: 02-24-2024 Office outpatient visit 15 minutes Maricruz BERMAN, DNP Work Phone: [facility] Comment on above: 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); Acute on chronic systolic (congestive) heart failure (Multi); Type 1 diabetes mellitus with diabetic neuropathy (Multi) Start: 02-18-2024 End: 02-18-2024 Office outpatient visit 25 minutes Paty Ortega CNP Work Phone: [facility] [place] Comment on above: Type 1 diabetes suzie itus with diabetic neuropathy (HCC) (Primary Dx); Pure hypercholesterolemia; Essential hypertension Start: 02-07-2024 End: 02-07-2024 ambulatory NO ASSIGNED PCP GENERIC PROVIDER [facility] Start: 01-17-2024 Refill Ej Guidry MA [facility] Comment on above: Medication Refill Start: 01-14-2024 End: 01-14-2024 Office outpatient visit 15 minutes Aylin Lacy DRAPERY AND UPHOLSTERY MEASURER Work Phone: [facility] Comment on above: Cardiovascular stres s test abnormal (Primary Dx); Dyslipidemia; 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; Primary hypertension Start: 12-29-2023 Refill Ej Guidry MA [facility] Comment on above: Medication Refill Start: 12-15-2023 End: 12-15-2023 ambulatory [facility] Work Phone: Start: 12-15-2023 End: 12-15-2023 Patient encounter procedure [facility] [place] Work Phone: Start: 11-29-2023 End: 11-29-2023 Subsequent hospital visit by physician Jovan Faithv1 [employer] [facility] Comment on above: Arrived Start: 11-27-2023 End: 12-01-2023 Evaluation and management of inpatient [facility] Work Phone: [facility] Start: 11-26-2023 End: 11-27-2023 Emergency department patient visit Ger Bansal DO Work Phone: [facility] Emergency [facility] Comment on above: NSTEMI (non-ST eleva chinyere myocardial infarction) ([facility]) (Primary Dx); MADONNA (acute kidney injury) ([facility]); Acute combined systolic and diastolic congestive heart failure ([facility]); Type 1 diabetes mellitus with other specified complication ([facility]) Start: 11-25-2023 End: 11-25-2023 ambulatory [facility] Work Phone: Start: 11-25-2023 End: 11-25-2023 Patient encounter procedure [facility] Work Phone: Start: 11-17-2023 End: 11-17-2023 [facility] Work Phone: Start: 11-17-2023 End: 11-17-2023 Patient encounter procedure [facility] Work Phone: Start: 11-02-2023 Orders Only Mary Ramirez MD Work Phone: [facility] Start: 10-22-2023 End: 10-22-2023 Patient encounter procedure [facility] Start: 10-21-2023 End: 10-21-2023 Office outpatient new 45 minutes Mary Vargas MD Work Phone: [facility] Comment on above: 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 (Primary Dx); Dyslipidemia; Congestive heart failure, unspecified HF chronicity, unspecified heart failure type (HCC) Start: 10-11-2023 End: 10-11-2023 Subsequent hospital visit by physician Jovan Faithv1 [facility] Start: 10-11-2023 Critical care ill/in jured patient init 30-74 min Aury Rouse DO Work Phone: [facility] Work Phone: Start: 10-11-2023 End: 10-13-2023 Evaluation and management of inpatient Praful Pineda MD Work Phone: [facility] Comment on above: [...] minutes Mary Vargas MD Work Phone: [facility] [place] Comment on above: 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 Ayanna Albert Facility:[id number] Start: 07-30-2023 Refill Paty Ortega CNP Work Phone: [facility] [place] Start: 07-29-2023 Patient encounter procedure Da jovani Mirza Work Phone: [facility] Work Phone: Start: 07-27-[address] Ayanna Albert Facility:[id number] Start: 02-19-2023 End: 02-19-2023 Office outpatient visit 25 minutes Paty Ortega CNP Work Phone: [facility] Comment on above: Type 1 diabetes suzie itus with diabetic neuropathy (HCC) Start: 01-25-2023 Patient encounter procedure Da vid J Tomchak Work Phone: [facility] Work Phone: Start: 01-25-[address] Nancy Mirza Facility:[id number] Start: 01-18-2023 Patient encounter procedure Da jovani Mirza Work Phone: [facility] Work Phone: Start: 01-18-[address] Nancy Mirza Facility:[id number] Start: 01-15-2023 Patient encounter procedure Da jovani Mirza Work Phone: [facility] Work Phone: Start: 01-15-2023 [email or web address], Provider : Chaya Chan, Status: Pen, Time: 10:00 AM Nancy Mirza Work Phone: [facility] Work Phone: Start: 01-15-[address] Nancy Mirza Facility:[id number] Start: 01-13-2023 Patient encounter procedure Da jovani Mirza Work Phone: [facility] Work Phone: Start: 01-13-[address] Nancy Mirza Facility:[id number] Start: 01-08-2023 [email or web address], Provider : Chaya Chan, Status: Pen, Time: 10:00 AM Nancy Mirza Work Phone: [facility] Work Phone: Start: 01-08-[address] Nancy Mirza Facility:[id number] Start: 01-06-[address] Nancy Mirza Facility:[id number] Start: 01-06-2023 Patient encounter procedure Da jovani Mirza Work Phone: [facility] Work Phone: Start: 01-01-[address] Nancy Mirza Facility:[id number] Start: 01-01-2023 Patient encounter procedure Da jovani Mirza Work Phone: [facility] Work Phone: Start: 12-31-2022 Refill Paty Ortega DRAPERY AND UPHOLSTERY MEASURER Work Phone: [facility] Comment on above: Type 1 diabetes suzie itus with diabetic neuropathy (HCC) (Primary Dx) Start: 12-30-[address] Nancy Mirza Facility:[id number] Start: 12-25-[address] Nancy Mirza Facility:[id number] Start: 12-25-2022 Patient encounter procedure Da jovani Mirza Work Phone: [facility] Work Phone: Start: 12-21-2022 Patient encounter procedure Da jovani Mirza Work Phone: [facility] [place] Work Phone: Start: 12-21-[address] Nancy Mirza Facility:[id number] Start: 10-19-2022 End: 10-19-2022 Office outpatient visit 25 minutes Paty Ortega CNP Work Phone: [facility] [place] Comment on above: Type 1 diabetes suzie itus with diabetic neuropathy (HCC) (Primary Dx); Essential hypertension; Pure hypercholesterolemia; Bilateral carotid artery stenosis; Prostate cancer screening Start: 06-19-2022 End: 06-19-2022 Office outpatient visit 25 minutes Paty Ortega CNP Work Phone: [facility] [place] Comment on above: Type 1 diabetes suzie itus with diabetic neuropathy (HCC) (Primary Dx); Essential hypertension; Elevated PSA Start: 02-13-2022 End: 02-13-2022 Office outpatient visit 25 minutes Mary Vargas MD Work Phone: [facility] [place] Comment on above: Type 1 diabetes suzie itus with diabetic neuropathy (HCC) (Primary Dx); 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); Essential hypertension; Bilateral carotid artery stenosis; Prostate cancer screening Start: 10-13-2021 End: 10-13-2021 Office outpatient visit 25 minutes Paty Ortega DRAPERY AND UPHOLSTERY MEASURER Work Phone: [facility] [place] Comment on above: Type 1 diabetes suzie itus with diabetic neuropathy (HCC) (Primary Dx); Essential hypertension; Pure hypercholesterolemia Start: 10-08-2021 Refill Paty Ortega DRAPERY AND UPHOLSTERY MEASURER Work Phone: [facility] Start: 06-20-2021 End: 06-20-2021 Office outpatient visit 25 minutes Paty Ortega DRAPERY AND UPHOLSTERY MEASURER Work Phone: [facility] [place] Comment on above: Type 1 diabetes suzie itus with diabetic polyneuropathy (HCC) (Primary Dx); Essential hypertension; Pure hypercholesterolemia Start: 02-26-2021 End: 02-26-2021 Subsequent hospital visit by physician Mary Vargas MD Work Phone: [facility] Comment on above: Arrived Start: 02-18-2021 End: 02-18-2021 Office outpatient visit 25 minutes Mary Vargas MD Work Phone: [facility] Comment on above: Type 1 diabetes suzie itus with diabetic polyneuropathy (HCC) (Primary Dx); Bilateral carotid artery stenosis; Essential hypertension; Type 1 diabetes mellitus with diabetic neuropathy (HCC) Start: 02-18-2021 End: 02-18-2021 Refill Mary Vargas MD Work Phone: [facility] Start: 11-22-2020 End: 11-22-2020 Orders Only Ya Nicolas Work Phone: [facility] Start: 10-18-2020 End: 10-18-2020 Office outpatient visit 25 minutes Paty Ortega Work Phone: [facility] Comment on above: Type 1 diabetes suzie itus with diabetic polyneuropathy (HCC) (Primary Dx); Type 1 diabetes mellitus with diabetic neuropathy (HCC); Essential hypertension; Pure hypercholesterolemia Start: 06-18-2020 End: 06-18-2020 Office outpatient visit 25 minutes Paty Ortega Work Phone: [facility] Comment on above: Type 1 diabetes suzie itus with diabetic polyneuropathy (HCC) (Primary Dx); Type 1 diabetes mellitus with diabetic neuropathy (HCC); Essential hypertension; Pure hypercholesterolemia Start: 11-16-2019 End: 11-16-2019 Office outpatient visit 25 minutes Paty Ortega Work Phone: [facility] Comment on above: Type I diabetes suzie itus with neurological manifestations, uncontrolled (HCC) (Primary Dx); Type 1 diabetes mellitus with diabetic polyneuropathy (HCC); Pure hypercholesterolemia Start: 07-17-2019 End: 07-17-2019 Office outpatient visit 25 minutes Keeley Patton Work Phone: [facility] Comment on above: Type 1 diabetes suzie itus with diabetic polyneuropathy (HCC) (Primary Dx); Essential hypertension; Pure hypercholesterolemia Start: 03-13-2019 End: 03-13-2019 Office outpatient visit 25 minutes Mary Vargas Work Phone: [facility] Comment on above: 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) (Primary Dx); Pure hypercholesterolemia; Essential hypertension; Type 1 diabetes mellitus with diabetic neuropathy (HCC); Prostate cancer screening Start: 11-11-2018 End: 11-11-2018 Office outpatient visit 15 minutes Keeley Patton Work Phone: [facility] Comment on above: Type 1 diabetes suzie itus with diabetic neuropathy (HCC) (Primary Dx); Essential hypertension Start: 07-05-2018 End: 07-05-2018 Office outpatient visit 25 minutes Paty Ortega Work Phone: [facility] Comment on above: Type 1 diabetes suzie itus with diabetic neuropathy (HCC) (Primary Dx); Essential hypertension; Pure hypercholesterolemia Start: 02-28-2018 End: 02-28-2018 Office/outpatient visit, est, level 3 Alexandra Givens Work Phone: [facility] Start: 02-09-2018 Ambulatory Nancy Mirza [facility] y:[place] Start: 02-09-2018 End: 02-09-2018 Ambulatory Nancy Mirza Work Phone: [facility] Start: 10-29-2017 Office/outpatient vi sit, est, level 4 Mary Arti Galvaney Work Phone: [facility] Start: 06-17-2017 End: 06-17-2017 Office outpatient visit 25 minutes Ya Parker Work Phone: [facility] Comment on above: Type 1 diabetes suzie itus with diabetic neuropathy (HCC) (Primary Dx);Essential hypertension;Pure hypercholesterolemia Procedures Date Procedure Procedure Detail Performing Clinician Start: 04-22-2025 Estimated creatinine clearance Ryley Jeter MD Work Phone: Start: 04-21-2025 Measurement of occul t blood in stool specimen using immunoassay Ryley Jeter MD Work Phone: Start: 04-20-2025 Blood count smear mc rscp w/mnl difrntl wbc count Ryley Jeter MD Work Phone: Start: 04-20-2025 Mean corpuscular hem oglobin concentration determination Ryley Jeter MD Work Phone: Start: 04-20-2025 Nucleated red blood cell count procedure Ryley Jeter MD Work Phone: Start: 04-20-2025 Platelet mean volume determination Ryley Jeter MD Work Phone: Start: 04-19-2025 Ryley titus MD Work Phone: Start: 04-19-2025 Urine microscopy: red cells Ryley Jeter MD Work Phone: Start: 04-19-2025 Urnls dip stick/tabl et reagent auto microscopy Ryley Jeter MD Work Phone: Start: 04-19-2025 Assay of lactate Ryley Jeter MD Work Phone: Start: 04-19-2025 Carbon dioxide measu rement, partial pressure Ryley Jeter MD Work Phone: Start: 04-19-2025 Gases blood o2 satur ation only direct nikkie Ryley Jeter MD Work Phone: Start: 04-19-2025 Measurement of parti al pressure of oxygen in blood Ryley Jeter MD Work Phone: Start: 04-19-2025 Serum inorganic phos phate measurement Ryley Jeter MD Work Phone: Start: 04-19-2025 Carbon dioxide measu rement, partial pressure Ryley Jeter MD Work Phone: Start: 04-19-2025 Gases blood o2 satur ation only direct nikkie Ryley Jeter MD Work Phone: Start: 04-19-2025 Measurement of parti al pressure of oxygen in blood Ryley Jeter MD Work Phone: Start: 04-19-2025 Oxygen measurement Dante Jeter MD Work Phone: Start: 04-19-2025 Pulmonary ventilatio n perfusion study Ryley Jeter MD Work Phone: Start: 04-19-2025 Plain chest X-ray Gregg Jeter MD Work Phone: Start: 04-19-2025 Blood count smear mc rscp w/mnl difrntl wbc count Ryley Jeter MD Work Phone: Start: 04-19-2025 D-dimer assay, quantitative Ryley Jeter MD Work Phone: Start: 04-19-2025 Estimated creatinine clearance Ryley Jeter MD Work Phone: Start: 04-19-2025 Mean corpuscular hem oglobin concentration determination Ryley Jeter MD Work Phone: Start: 04-19-2025 Nucleated red blood cell count procedure Ryley Jeter MD Work Phone: Start: 04-19-2025 Platelet mean volume determination Ryley Jeter MD Work Phone: Start: 04-10-2025 Blood count smear mc rscp w/mnl difrntl wbc count Ryley Jeter MD Work Phone: Start: 04-10-2025 Estimated creatinine clearance Ryley Jeter MD Work Phone: Start: 04-10-2025 Mean corpuscular hem oglobin concentration determination Ryley Jeter MD Work Phone: Start: 04-10-2025 Nucleated red blood cell count procedure Ryley Jeter MD Work Phone: Start: 04-10-2025 Platelet mean volume determination Ryley Jeter MD Work Phone: Start: 04-09-2025 [...] colitis,primary sclerosing cholangitis and autoimmune hepatitis.Performed at: [address] [id number] Director: Todd Anderson PhD, Phone: [phone] Start: 04-06-2025 Serum inorganic phos phate measurement Ryley Jeter MD Work Phone: Start: 04-05-2025 Plain chest X-ray Gregg Jeter MD Work Phone: Start: 04-05-2025 Urine microscopy: red cells Ryley Jeter MD Work Phone: Start: 04-05-2025 Urnls [...] Ryley coulter MD Work Phone: Start: 04-03-2025 Ryley titus MD Work Phone: Start: 04-03-2025 Carbon dioxide measu rement, partial pressure Ryley Jeter MD Work Phone: Start: 04-03-2025 Gases blood o2 satur ation only direct nikkie Ryley Jeter MD Work Phone: Start: 04-03-2025 Measurement of parti al pressure of oxygen in blood Ryley Jeter MD Work Phone: Start: 04-03-2025 Oxygen measurement Dante Jeter MD Work Phone: Start: 04-03-2025 Assay of triglycerides Ryley Jeter MD Work Phone: Start: 04-03-2025 Total cholesterol:HD L ratio measurement Ryley Jeter MD Work Phone: Start: 04-03-2025 CT angiography of ch est with contrast Ryley Jeter MD Work Phone: Start: 04-03-2025 Assay of lactate Ryley Jeter MD Work Phone: Start: 04-03-2025 Plain chest X-ray Gregg Jeter MD Work Phone: Start: 04-03-2025 Venous oxygen satura tion measurement Ryley Jeter MD Work Phone: Start: 04-03-2025 Calculation of inter national normalized ratio Ryley Jeter MD Work Phone: Start: 04-03-2025 D-dimer assay, quantitative Ryley Jeter MD Work Phone: Comment on above: D-Dimer ELEVATED (>0 .49): Additional studies and clinicalassessments are indicated to conclude diagnosis of:Deep Vein Thrombosis (DVT) or Pulmonary Embolism (PE)CRITICAL VALUE CALLED TO [id number] Victor Hugo aSntamaria.RESULTS READ BACK BY SAME. Start: 04-03-2025 Estimated creatinine clearance Ryley Jeter MD Work Phone: Start: 02-28-2025 Thyrotropin [Units/v olume] in Serum or Plasma Maricruz Albert APRN-DRAPERY AND UPHOLSTERY MEASURER, DNP Work Phone: Start: 02-12-2025 Comprehensive metabolic panel Paty Ortega [facility] Work Phone: Start: 02-12-2025 Lipid panel Paty Ortega [facility] Work Phone: Start: 02-12-2025 Lipid 1996 panel - S laurence or Plasma Ayanna Albert DO Work Phone: Start: 02-12-2025 Thyrotropin [Units/v olume] in Serum or Plasma Ayanna Albert DO Work Phone: Start: 02-06-2025 Mean corpuscular hem oglobin concentration determination Ryley Jeter MD Work Phone: Start: 04-08-2025 Platelet mean volume determination Ryley Jeter MD Work Phone: Start: 11-14-2024 Follow-up visit Follow-up WOO SMALL Start: 10-28-2024 Glucose measurement Laura Benitez MD [...] 2d w/ wom-mode compl spec&colr d Zoila Pollrad PA-C Work Phone: Start: 10-27-2024 Potassium serum [...] Phone: Start: 10-27-2024 Blood typing serologic abo Zoilawoody Pollard PA-C Work Phone: Start: 10-27-2024 End: 10-27-2024 Comprehensive metabolic panel Zoila Pollard PA-C Work Phone: Start: 10-27-2024 Cath plmt l hrt & ar ts w/njx & angio img s&i Woo Small MD Work Phone: Start: 10-27-2024 Glucose measurement Jose Antonio Rodriguez MD Work Phone: Start: 07-07-2024 Thyrotropin [Units/v olume] in Serum or Plasma Ayanna Juanito VERDUZCO Work Phone: Start: 02-07-2024 ALBUMIN, URINE RANDOM N O GENERIC PROVIDER Start: 02-07-2024 Comprehensive metabo lic 2000 panel - Serum or Plasma NO GENERIC PROVIDER Start: 12-01-2023 End: 12-01-2023 Glucose measurement Jose delgado MD Work Phone: Start: 12-01-2023 End: 12-01-2023 Glucose measurement Generic [facility] Work Phone: Start: 12-01-2023 Basic metabolic pane l calcium total Norma Geiger DRAPERY AND UPHOLSTERY MEASURER Work Phone: Start: 11-30-2023 Glucose measurement Gen malika [facility] Work Phone: Start: 11-30-2023 Glucose measurement Gen malika [facility] Work Phone: Start: 11-30-2023 Echo tthrc r-t 2d w/ wom-mode compl spec&colr d Norma Geiger DRAPERY AND UPHOLSTERY MEASURER Work Phone: Start: 11-30-2023 Basic metabolic pane l calcium total Norma Geiger DRAPERY AND UPHOLSTERY MEASURER Work Phone: Start: 11-29-2023 Ct thorax w/o contra st material Alfred P Ezike DRAPERY AND UPHOLSTERY MEASURER Work Phone: Start: 11-29-2023 Thromboplastin time partial plasma/whole blood Mary Vargas MD Work Phone: Start: 11-29-2023 Glucose measurement Gen [facility] Work Phone: Start: 11-29-2023 Ecg routine ecg w/le ast 12 lds trcg only w/o i&r Ger W Bansal DO Work Phone: Start: 11-29-2023 Glucose measurement Gen [facility] Work Phone: Start: 11-29-2023 Thromboplastin time partial plasma/whole blood Mary Vargas MD Work Phone: Start: 11-29-2023 Basic metabolic pane l calcium total Norma Tania Juanjo DRAPERY AND UPHOLSTERY MEASURER Work Phone: Start: 11-28-2023 Glucose measurement Gen [facility] Work Phone: Start: 11-28-2023 Glucose measurement Gen [facility] Work Phone: Start: 11-28-2023 Glucose measurement Gen [facility] Work Phone: Start: 11-28-2023 Glucose measurement Gen [facility] Work Phone: Start: 11-28-2023 Basic metabolic pane l calcium total Norma Tania Juanjo DRAPERY AND UPHOLSTERY MEASURER Work Phone: Start: 11-28-2023 Glucose measurement Gen [facility] Work Phone: Start: 11-28-2023 Basic metabolic pane l calcium total Norma Tania [place] DRAPERY AND UPHOLSTERY MEASURER Work Phone: Start: 11-27-2023 End: 11-27-2023 Basic metabolic panel calcium total Norma Tania [place] DRAPERY AND UPHOLSTERY MEASURER Work Phone: Start: 11-27-2023 C-reactive protein Mehdi gaylaa Kareen Pabon MD Work Phone: Start: 11-27-2023 Glucose measurement Gen malika [facility] Work Phone: Start: 11-27-2023 Glucose measurement Gen malika [facility] Work Phone: Start: 11-27-2023 Glucose measurement Gen malika [facility] Work Phone: Start: 11-27-2023 Basic metabolic pane l calcium total Norma Tania [place] DRAPERY AND UPHOLSTERY MEASURER Work Phone: Start: 11-27-2023 Glucose measurement Gen malika [facility] Work Phone: Start: 11-27-2023 Iaad ia clostridium difficile toxin Norma Tania [place] DRAPERY AND UPHOLSTERY MEASURER Work Phone: Start: 11-27-2023 Hemoglobin glycosylated a1c Mary Vargas MD Work Phone: Start: 11-27-2023 [facility]: Start: 11-27-2023 Basic metabolic pane l calcium total Norma Tania [place]jo DRAPERY AND UPHOLSTERY MEASURER Work Phone: Start: 11-27-2023 Glucose measurement Gen malika [facility] Work Phone: Start: 11-27-2023 Glucose measurement Gen malika [facility] Work Phone: Start: 11-27-2023 End: 11-27-2023 Glucose measurement Generic [facility] Work Phone: Start: 11-27-2023 Basic metabolic pane l calcium total Norma Tania [place] DRAPERY AND UPHOLSTERY MEASURER Work Phone: Start: 11-27-2023 Glucose measurement Gen malika [facility] Work Phone: Start: 11-27-2023 Glucose measurement Gen malika [facility] Work Phone: Start: 11-27-2023 Glucose measurement Gen malika [facility] Work Phone: Start: 11-27-2023 Basic metabolic pane l calcium total Norma Geiger CNP Work Phone: Start: 11-27-2023 Influenza virus A an d B RNA and SARS-CoV-2 (COVID-19) N gene panel - Respiratory specimen by ALICE with probe detection Norma Geiger DRAPERY AND UPHOLSTERY MEASURER Work Phone: Start: 11-27-2023 Polymerase chain ty ction analysis Norma Geiger DRAPERY AND UPHOLSTERY MEASURER Work Phone: Start: 11-27-2023 End: 11-27-2023 Glucose measurement Generic [facility] Work Phone: Start: 11-27-2023 Assay of troponin quantitative Norma Geiger DRAPERY AND UPHOLSTERY MEASURER Work Phone: Start: 11-27-2023 Gases blood ph direc t nikkie xcpt pulse oximitry Generic [facility] Work Phone: Start: 11-27-2023 End: 11-27-2023 Glucose measurement Generic [facility] Work Phone: Start: 11-27-2023 Radiologic exam ches t single view Norma Geiger CNP Work Phone: Start: 11-27-2023 End: 11-27-2023 Gases blood ph direct nikkie xcpt pulse oximitry Generic [facility] Work Phone: Start: 11-27-2023 Ecg routine ecg w/le ast 12 lds trcg only w/o i&r Norma Geiger DRAPERY AND UPHOLSTERY MEASURER Work Phone: Start: 11-27-2023 OBTAIN ARTERIAL BLOO D GASES AND PERFORM Norma Geiger DRAPERY AND UPHOLSTERY MEASURER Work Phone: Start: 11-27-2023 OBTAIN VENOUS BLOOD GASES AND PERFORM Norma Geiger DRAPERY AND UPHOLSTERY MEASURER Work Phone: Start: 11-27-2023 End: 11-27-2023 Basic metabolic panel calcium total Norma Geiger DRAPERY AND UPHOLSTERY MEASURER Work Phone: Start: 11-27-2023 End: 11-27-2023 Culture bacterial blood aerobic w/id isolates Norma Geiger DRAPERY AND UPHOLSTERY MEASURER Work Phone: Start: 11-27-2023 Lipid panel Norma Tavares DRAPERY AND UPHOLSTERY MEASURER Work Phone: Start: 11-27-2023 End: 11-27-2023 Glucose measurement Generic [facility] Work Phone: Start: 11-27-2023 Thyrotropin [Units/v olume] in Serum or Plasma [facility] Start: 11-27-2023 Assay of troponin quantitative Ger Sim Bansal DO Work Phone: Start: 11-26-2023 EXTRA TUBES Ger Sim Swi ft DO Work Phone: Start: 11-26-2023 GREEN TOP Ger Sim Swi ft DO Work Phone: Start: 11-26-2023 Assay of lactate Ger Sim Bansal DO Work Phone: Start: 11-26-2023 Iadna s aureus methi cillin resist amp probe tq Ger Sim Bansal DO Work Phone: Start: 11-26-2023 Radiologic exam ches t single view Ger Sim Bansal DO Work Phone: Start: 11-26-2023 End: 11-26-2023 Comprehensive metabolic panel Ger Sim Swi ft DO Work Phone: Start: 11-26-2023 [...] Start: 10-11-2023 EXTRA URINE OROSCO TUBE R yeison Rouse DO Work Phone: Start: 10-11-2023 Urinalysis [...] or Plasma by High sensitivity method Aury Nadeem Rouse DO Work Phone: Start: 10-11-2023 End: 10-11-2023 Ecg routine ecg w/least 12 lds i&r only Aury Rouse DO Work Phone: Start: 10-11-2023 Iadna dna/rna rsv am plified probe technique Aury Rouse DO Work Phone: Start: 10-11-2023 Influenza virus A an d B RNA [Identifier] in Unspecified specimen by ALICE with probe detection Aury Randersen DO Work Phone: Start: 10-11-2023 SARS-CoV-2 (COVID-19 ) RNA [Presence] in Respiratory specimen by ALICE with probe detection Aury Nadeem HendricksRouse DO Work Phone: Start: 09-27-2023 Lipid 1996 panel - S laurence or Plasma Praful Pineda MD Work Phone: Start: 09-27-2023 Thyrotropin [Units/v olume] in Serum or Plasma Praful Pineda MD Work Phone: Start: 06-21-2023 3 comp foot exam completed Paty Ortega DRAPERY AND UPHOLSTERY MEASURER Work Phone: Start: 02-19-2023 3 comp foot exam completed Paty Ortega DRAPERY AND UPHOLSTERY MEASURER Work Phone: Start: 02-12-2023 Lipid 1996 panel - S laurence or Plasma Ayanna Albert DO Work Phone: Start: 02-12-2023 Thyrotropin [Units/v olume] in Serum or Plasma Ayanna Albert DO Work Phone: Start: 10-19-2022 3 comp foot exam completed Paty Ortega DRAPERY AND UPHOLSTERY MEASURER Work Phone: Start: 06-19-2022 3 comp foot exam completed aPty Ortega DRAPERY AND UPHOLSTERY MEASURER Work Phone: Start: 02-13-2022 3 comp foot exam completed Mary Vargas MD Work Phone: Start: 10-13-2021 3 comp foot exam completed Paty Ortega DRAPERY AND UPHOLSTERY MEASURER Work Phone: Start: 06-20-2021 3 comp foot exam completed Paty Ortega DRAPERY AND UPHOLSTERY MEASURER Work Phone: Start: 06-11-2021 Microalbumin [Mass/v olume] in Urine by Test strip Paty Ortega DRAPERY AND UPHOLSTERY MEASURER Work Phone: Start: 02-26-2021 Duplex scan extracra nial art compl bi study Mary Vargas MD Work Phone: Start: 02-18-2021 3 comp foot exam completed Mary Vargas MD Work Phone: Start: 10-18-2020 3 comp foot exam completed Paty Ortega Start: 10-14-2020 Ophthalmic examinati on and evaluation Paty Ortega DRAPERY AND UPHOLSTERY MEASURER Work Phone: Start: 10-03-2020 Microalbumin [Mass/v olume] [...] EJACULATION WITHIN 48 HRS. [facility] VOL24,NO.2, , PG.339 Performed By: #### [id number] #### [facility] [address] [place] [address] Start: 03-13-2019 3 comp foot exam completed Keeley Pooja Start: 11-11-2018 3 comp foot exam completed Mary Vargas Start: 07-05-2018 3 comp foot exam completed Keeley Patton Start: 02-15-2017 3 comp foot exam completed Ya Parker Plan of Treatment Date Care Activity Detail Author Start: 04-27-2026 Creatinine measurement Creatinine Level [facility] Start: 04-27-2026 Potassium measurement Potassium Level [facility] Start: 04-03-2026 Echocardiography Echocardiogram [facility] Start: 02-28-2026 Thyroid stimulating hormone measurement TSH Level [facility] Start: 02-12-2026 Creatinine measurement Creatinine Level [facility] Start: 02-12-2026 Lipid panel Lipid Panel [facility] Start: 02-12-2026 Potassium measurement Potassium Level [facility] Start: 02-12-2026 Thyroid stimulating hormone measurement TSH Level [facility] Start: 02-12-2026 Urine screening for protein Diabetes: Urine Protein Screening [facility] Start: 11-13-2025 Diabetic foot examination Diabetic Foot Exam [facility] Start: 10-27-2025 Screening for malignant neoplasm of lung Low-dose CT Lung Cancer Screen [facility] Start: 10-23-2025 Glaucoma screening Diabetes: Retinopathy Screening [facility] Start: 09-23-2025 eGFR Diabetes eGFR Diabetes [facility] Start: 09-05-2025 Urine screening for protein eGFR Diabetes [facility] Start: 08-27-2025 End: 08-27-2025 Patient encounter procedure 08/27/2025 1:30 PM EDT Office Visit [facility] [address] [place] [address] Ayanna Albert, DO [address] [place] [address] [facility] Start: 08-14-2025 Hemoglobin A1c measurement A1C [facility] Start: 08-14-2025 Urine screening for protein eGFR Diabetes [facility] Start: 07-13-2025 End: 07-13-2025 Patient encounter procedure 07/13/2025 1:00 PM EDT Office Visit [facility] [place] [address] [place] [id number] Paty Ortega CNP [address] [place] [address] [facility] [place] Start: 07-07-2025 Creatinine measurement Creatinine Level [facility] Start: 07-07-2025 Potassium measurement Potassium Level [facility] Start: 07-07-2025 Thyroid stimulating hormone measurement TSH Level [facility] Start: 07-02-2025 Influenza vaccination [facility] Start: 06-12-2025 End: 06-12-2025 Patient encounter procedure 06/12/2025 9:20 AM EDT Office Visit [facility] [address] [place] [id number] Woo Small MD [address] [place] [address] [facility] Start: 06-05-2025 End: 06-05-2025 Patient encounter procedure 06/05/2025 11:00 AM EDT Office Visit [facility] [address] [place] [address] Maricruz Albert, GATE GUARD-TRISTAN, DNP [address] [facility] [address] [place] [address] [facility] Start: 06-01-2025 End: 05-01-2026 Basic metabolic 2000 panel - Serum or Plasma Basic metabolic panel Lab Routine Stage 3b chronic kidney disease (Multi) Edema, unspecified type Expected: 06/01/2025 (Approximate), Expires: 05/01/2026 [facility] Work Phone: Comment on above: Expected: 06/01/2025 (Approximate), Expi res: 05/01/2026 Start: 05-30-2025 Hemoglobin A1c measurement [facility] Start: 05-17-2025 End: 05-17-2025 Patient encounter procedure [facility] Start: 05-15-2025 End: 05-01-2026 Basic metabolic 2000 panel - Serum or Plasma Basic metabolic panel Lab Routine Stage 3b chronic kidney disease (Multi) Expected: 05/15/2025 (Approximate), Expires: 05/01/2026 [facility] Service Area Work Phone: Comment on above: Expected: 05/15/2025 (Approximate), Expi res: 05/01/2026 Start: 05-15-2025 End: 05-01-2026 CBC panel - Blood by Automated count CBC Lab Routine Stage 3b chronic kidney disease (Multi) Anemia due to stage 4 chronic kidney disease Expected: 05/15/2025 (Approximate), Expires: 05/01/2026 [facility] Work Phone: Comment on above: Expected: 05/15/2025 (Approximate), Expi res: 05/01/2026 Start: 05-14-2025 Hemoglobin A1c measurement [facility] Start: 05-14-2025 End: 05-14-2025 Patient encounter procedure 05/14/2025 11:20 AM EDT Office Visit [facility] [address] [place] [id number] Woo Small MD [address] [place] [address] [facility] Start: 04-28-2025 Urine screening for protein eGFR Diabetes [facility] Start: 04-22-2025 Patient discharge [facility] Start: 04-21-2025 Application of intermittent pneumatic compression device [facility] Start: 04-20-2025 Referral to service [facility] Start: 04-20-2025 Referral to metal fabricator apprentice [facility] Start: 04-20-2025 [facility] Start: 04-20-2025 Inhalation therapy procedure [facility] Start: 04-19-2025 [facility] Start: 04-19-2025 Referral to service [facility] Start: 04-19-2025 Care planning and problem solving actions [facility] Start: 04-19-2025 [facility] Start: 04-19-2025 Gas panel - Arterial blood [facility] Start: 04-19-2025 Serum inorganic phosphate measurement [facility] Start: 04-19-2025 Thyroid stimulating hormone measurement [facility] Start: 04-19-2025 Assessment of risk of venous thromboembolism [facility] Start: 04-19-2025 Care regimes management [facility] Start: 04-19-2025 Catheterization of vein [facility] Start: 04-19-2025 Continuous pulse oximetry [facility] Start: 04-19-2025 Elevation of head of bed [facility] Start: 04-19-2025 Incentive spirometry [facility] Start: 04-19-2025 Insertion of catheter into peripheral vein [facility] Start: 04-19-2025 Measuring intake and output [facility] Start: 04-19-2025 Notification of physician [facility] Start: 04-19-2025 Oxygen therapy [facility] Start: 04-19-2025 Patient referral to dietitian [facility] Start: 04-19-2025 Providing care according to standard [facility] Start: 04-19-2025 Referral to veneer stock grader [facility] Start: 04-19-2025 Referral to occupational therapist [facility] Start: 04-19-2025 Referral to service [facility] Start: 04-19-2025 Respiratory therapy [facility] Start: 04-19-2025 Tobacco use cessation education [facility] Start: 04-19-2025 Urinalysis complete panel - Urine [facility] Start: 04-19-2025 Vital signs measurements [facility] Start: 04-19-2025 End: 04-19-2025 [facility] Start: 04-19-2025 Following clinical pathway protocol [facility] Start: 04-19-2025 Pulmonary ventilation perfusion study [facility] Start: 04-19-2025 Verification routine [facility] Start: 04-19-2025 Admission procedure [facility] Start: 04-19-2025 Continuous positive airway pressure ventilation treatment [facility] Start: 04-18-2025 Urine screening for protein eGFR Diabetes [facility] Start: 04-10-2025 Patient discharge [facility] Start: 04-08-2025 Administration of blood product [facility] Start: 04-07-2025 Application of intermittent pneumatic compression device [facility] Start: 04-07-2025 Hemodialysis care [facility] Start: 04-07-2025 End: 04-07-2025 [facility] Start: 04-07-2025 [facility] Start: 04-06-2025 [facility] Start: 04-06-2025 Care of hemodialysis equipment [facility] Start: 04-06-2025 Hemodialysis care [facility] Start: 04-06-2025 [facility] Start: 04-05-2025 End: 04-06-2025 [facility] Start: 04-05-2025 Care of hemodialysis equipment [facility] Start: 04-05-2025 Dialysis care [facility] Start: 04-05-2025 Referral to general surgeon [facility] Start: 04-05-2025 Continuous pulse oximetry [facility] Start: 04-05-2025 Dual pressure spontaneous ventilation support [facility] Start: 04-04-2025 End: 04-04-2025 [facility] Start: 04-04-2025 Care regimes management [facility] Start: 04-04-2025 Notification of physician [facility] Start: 04-04-2025 Referral to veneer stock grader [facility] Start: 04-04-2025 End: 04-05-2025 [facility] Start: 04-04-2025 [facility] Start: 04-03-2025 Referral to metal fabricator apprentice [facility] Start: 04-03-2025 Bacteria identified in Blood by Culture Blood Culture [facility] Start: 04-03-2025 Respiratory Panel (PCR) Respiratory Panel (PCR) [facility] Start: 04-03-2025 Following clinical pathway protocol [facility] Start: 04-03-2025 Lab findings surveillance [facility] Start: 04-03-2025 End: 04-03-2025 Care planning and problem solving actions [facility] Start: 04-03-2025 End: 04-03-2025 [facility] Start: 04-03-2025 End: 04-03-2025 Following clinical pathway protocol [facility] Start: 04-03-2025 Application of elastic bandage [facility] Start: 04-03-2025 Assessment of risk of venous thromboembolism [facility] Start: 04-03-2025 Bacteria identified in Sputum by Culture [facility] Start: 04-03-2025 Care regimes management [facility] Start: 04-03-2025 Consultation [facility] Start: 04-03-2025 Elevation of affected extremity [facility] Start: 04-03-2025 Fall prevention [facility] Start: 04-03-2025 Incentive spirometry [facility] Start: 04-03-2025 Inhalation therapy procedure [facility] Start: 04-03-2025 Insertion of catheter into peripheral vein [facility] Start: 04-03-2025 Introduction of urinary catheter [facility] Start: 04-03-2025 Measuring intake and output [facility] Start: 04-03-2025 Notification of physician [facility] Start: 04-03-2025 Oxygen therapy [facility] Start: 04-03-2025 Patient education [facility] Start: 04-03-2025 Patient referral to dietitian [facility] Start: 04-03-2025 Providing care according to standard [facility] Start: 04-03-2025 Provision of activity privileges [facility] Start: 04-03-2025 Referral to occupational therapist [facility] Start: 04-03-2025 Referral to service [facility] Start: 04-03-2025 Tobacco use cessation education [facility] Start: 04-03-2025 Vital signs measurements [facility] Start: 04-03-2025 Bacterial nucleic acid assay [facility] Start: 04-03-2025 Thyroid stimulating hormone measurement [facility] Start: 04-03-2025 Streptococcus pneumoniae antigen assay [facility] Start: 04-03-2025 Verification routine [facility] Start: 04-03-2025 Admission procedure [facility] Start: 04-03-2025 [facility] Start: 04-03-2025 End: 04-03-2025 [facility] Start: 04-03-2025 Continuous pulse oximetry [facility] Start: 04-03-2025 Dual pressure spontaneous ventilation support [facility] Start: 03-23-2025 Medicare Annual Wellness Visit Medicare Annual Wellness Visit (AWV) [facility] Start: 03-12-2025 End: 03-12-2025 Patient encounter procedure 03/12/2025 2:00 PM EDT Office Visit [facility] [place] [address] [place] [address] Paty Ortega, DRAPERY AND UPHOLSTERY MEASURER [address] [place] [address] [facility] [place] Start: 02-26-2025 End: 02-26-2026 Basic metabolic 2000 panel - Serum or Plasma Basic metabolic panel Lab Routine Stage 3b chronic kidney disease (Multi) Expected: 02/26/2025 (Approximate), Expires: 02/26/2026 [facility] Service Area Work Phone: Comment on above: Expected: 02/26/2025 (Approximate), Expi res: 02/26/2026 Start: 02-06-2025 Creatinine measurement Creatinine Level [facility] Start: 02-06-2025 Potassium measurement Potassium Level [facility] Start: 02-04-2025 Hemoglobin A1c measurement A1C [facility] Start: 11-29-2024 Screening for malignant neoplasm of lung Low-dose CT Lung Cancer Screen [facility] Start: 11-27-2024 Thyroid stimulating hormone measurement TSH Level [facility] Start: 11-26-2024 Creatinine measurement Creatinine Level [facility] Start: 11-26-2024 Potassium measurement Potassium Level [facility] Start: 11-20-2024 End: 11-20-2024 Patient encounter procedure 11/20/2024 2:45 PM EST Office Visit [facility] [place] [address] [place] [address] Paty Ortega, DRAPERY AND UPHOLSTERY MEASURER [address] [place] [address] [facility] [place] Start: 11-14-2024 End: 11-14-2024 Patient encounter procedure 11/14/2024 10:40 AM EST Office Visit [facility] [address] [place] [address] Woo Small MD [address] [place] [address] [facility] Start: 11-13-2024 End: 11-13-2024 Patient encounter procedure 11/13/2024 11:30 AM EST Office Visit [facility] [address] [place] [address] Paty Ortega CNP [address] [place] [address] [facility] Start: 11-07-2024 End: 11-07-2024 Patient encounter procedure 11/07/2024 10:00 AM EST Office Visit [facility] [address] [place] [address] 3rd [place] [address] Brock Groves MD [address] [place] [address] [facility] Start: 11-03-2024 End: 11-03-2024 Patient encounter procedure [facility] Start: 10-27-2024 End: 10-27-2024 Admission to same day surgery center 10/27/2024 10:05 AM EST - 10/27/2024 10:55 AM EST Surgery [facility] [address] [place] [address] Elías Rodriguez MD [address] [place] [address] Left Heart Cath [facility] Comment on above: Left Heart Cath Start: 10-27-2024 Subsequent hospital visit by physician [facility] Procedural Care Unit Start: 10-18-2024 End: 10-18-2024 Patient encounter procedure 10/18/2024 1:20 PM EST Office Visit [facility] [address], 3rd [place] [address] Woo Small MD [address] [place] [address] [facility] Start: 10-13-2024 Creatinine measurement Creatinine Level [facility] Start: 10-13-2024 Potassium measurement Potassium Level [facility] Start: 10-11-2024 Echocardiography Echocardiogram [facility] Start: 10-06-2024 Hemoglobin A1c measurement [facility] Start: 09-27-2024 Lipid panel Lipid Panel [facility] Start: 09-27-2024 Thyroid stimulating hormone measurement TSH Level [facility] Start: 08-29-2024 End: 08-29-2025 Comprehensive metabolic 2000 panel - Serum or Plasma Comprehensive metabolic panel Lab Routine Stage 3b chronic kidney disease (Multi) Expected: 08/29/2024 (Approximate), Expires: 08/29/2025 [facility] Service Area Work Phone: Comment on above: Expected: 08/29/2024 (Approximate), Expi res: 08/29/2025 Start: 08-29-2024 End: 08-29-2025 Microalbumin/Creatinine [Mass Ratio] in Urine Albumin-Creatinine Ratio, Urine Random Lab Routine Stage 3b chronic kidney disease (Multi) Expected: 08/29/2024 (Approximate), Expires: 08/29/2025 [facility] Work Phone: Comment on above: Expected: 08/29/2024 (Approximate), Expi res: 08/29/2025 Start: 08-29-2024 End: 08-29-2025 Urinalysis complete panel - Urine Urinalysis with Reflex Microscopic Lab Routine Stage 3b chronic kidney disease (Multi) Expected: 08/29/2024 (Approximate), Expires: 08/29/2025 [facility] Work Phone: Comment on above: Expected: 08/29/2024 (Approximate), Expi res: 08/29/2025 Start: 08-29-2024 End: 08-29-2024 Patient encounter procedure 08/29/2024 1:00 PM EDT Office Visit [facility] Medical Office Building [address] [place] [id number] Maricruz Albert, GATE GUARD-DRAPERY AND UPHOLSTERY MEASURER, [facility] [address] [place] [address] [facility] Start: 08-25-2024 End: 02-23-2025 Microalbumin/Creatinine [Mass Ratio] in Urine Albumin , Urine Random Lab Routine Stage 3b chronic kidney disease (Multi) Expected: 08/25/2024 (Approximate), Expires: 02/23/2025 [facility] Work Phone: Comment on above: Expected: 08/25/2024 (Approximate), Expi res: 02/23/2025 Start: 08-09-2024 Urine screening for protein Diabetes: Urine Protein Screening [facility] Start: 07-21-2024 End: 07-21-2024 Patient encounter procedure 07/21/2024 1:45 PM EDT Office Visit [facility] [place] [address] [place] [address] Paty Ortega, TRISTAN [address] [place] [address] [facility] [place] Start: 07-02-2024 COVID-19 Vaccine ( season) COVID-19 Vaccine ( season) [facility] Start: 07-02-2024 COVID-19 Vaccine ( season) COVID-19 Vaccine () [facility] Start: 07-02-2024 Influenza vaccination [facility] Start: 06-21-2024 Diabetic foot examination [facility] Start: 05-31-2024 Urine screening for protein eGFR Diabetes [facility] Start: 04-24-2024 End: 04-24-2024 ambulatory [facility] Start: 04-24-2024 End: 04-24-2024 Patient encounter procedure 04/24/2024 9:40 AM EDT Office Visit [facility] [address] [place] [phone] Woo Small MD [facility] [place] [address] [facility] Start: 03-27-2024 Hemoglobin A1c measurement A1C [facility] Start: 02-26-2024 Hemoglobin A1c measurement [facility] Start: 02-24-2024 End: 02-23-2025 Basic metabolic 2000 panel - Serum or Plasma Basic metabolic panel Lab Routine Stage 3b chronic kidney disease (Multi) Expected: 02/24/2024 (Approximate), Expires: 02/23/2025 [facility] Service Area Work Phone: Comment on above: Expected: 02/24/2024 (Approximate), Expi res: 02/23/2025 Start: 02-24-2024 End: 02-23-2025 Phosphate [Mass/volume] in Serum or Plasma Phosphorus Lab Routine Stage 3b chronic kidney disease (Multi) Expected: 02/24/2024 (Approximate), Expires: 02/23/2025 [facility] Work Phone: Comment on above: Expected: 02/24/2024 (Approximate), Expi res: 02/23/2025 Start: 02-24-2024 End: 02-23-2025 Urate [Mass/volume] in Serum or Plasma Uric acid Lab Routine Stage 3b chronic kidney disease (Multi) Expected: 02/24/2024 (Approximate), Expires: 02/23/2025 [facility] Work Phone: Comment on above: Expected: 02/24/2024 (Approximate), Expi res: 02/23/2025 Start: 02-24-2024 End: 02-24-2024 Patient encounter procedure 02/24/2024 1:45 PM EDT Office Visit [facility] Medical Office Building [address] [place] [address] Maricruz Albert, GATE GUARD-DRAPERY AND UPHOLSTERY MEASURER, DNP [address] [place] [address] [facility] Start: 02-20-2024 Diabetic foot examination Foot Exam [facility] Start: 02-18-2024 End: 02-18-2024 ambulatory [facility] [place] Start: 02-18-2024 End: 02-18-2024 Patient encounter procedure 02/18/2024 1:00 PM EDT Office Visit [facility] [place] [address] [place] [address] Paty Ortega, TRISTAN [address] [place] [address] [facility] [place] Start: 02-13-2024 Lipid panel Lipid Panel [facility] Start: 02-13-2024 Thyroid stimulating hormone measurement TSH Level [facility] Start: 01-14-2024 End: 01-14-2024 ambulatory [facility] Start: 01-14-2024 End: 01-14-2024 Patient encounter procedure 01/14/2024 11:00 AM EDT Office Visit [facility] [address] [facility] [place] [address] Aylin Lacy CNP [address] [place] [address] [facility] Start: 01-12-2024 End: 01-12-2024 ambulatory [facility] Start: 01-12-2024 End: 01-12-2024 Patient encounter procedure [facility] Start: 01-10-2024 End: 10-08-2024 Comprehensive metabolic 2000 panel - Serum or Plasma Comprehensive Metabolic Panel Lab Routine 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) Expected: 01/10/2024 (Approximate), Expires: 10/08/2024 [facility] Work Phone: Comment on above: Expected: 01/10/2024 (Approximate), Expi res: 10/08/2024 Start: 01-10-2024 End: 10-08-2024 Hemoglobin A1c/Hemoglobin.total in Blood Hemoglobin A1c Lab Routine 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) Expected: 01/10/2024 (Approximate), Expires: 10/08/2024 [facility] Comment on above: Expected: 01/10/2024 (Approximate), Expi res: 10/08/2024 Start: 12-28-2023 Hemoglobin A1c measurement Diabetes: Hemoglobin A1C [facility] Start: 12-09-2023 Glaucoma screening Diabetes: Retinopathy Screening [facility] Start: 11-29-2023 End: 11-29-2023 Patient encounter procedure [facility] Start: 10-19-2023 Diabetic foot examination Foot Exam [facility] Start: 10-08-2023 End: 10-08-2023 Patient encounter procedure 10/08/2023 11:15 AM EST Office Visit [facility] [place] [address] [place] [address] Mayr Vargas MD [address] [place] [address] [facility] [place] Start: 09-11-2023 Hemoglobin A1c measurement [facility] Start: 08-25-2023 End: 08-25-2024 Basic metabolic 2000 panel - Serum or Plasma Basic metabolic panel Lab Routine Stage 3b chronic kidney disease (CMS/HCC) Expected: 08/25/2023 (Approximate), Expires: 08/25/2024 [facility] Service Area Work Phone: Comment on above: Expected: 08/25/2023 (Approximate), Expi res: 08/25/2024 Start: 08-25-2023 End: 08-25-2024 Microalbumin/Creatinine [Mass Ratio] in Urine Albumin, urine, random Lab Routine Stage 3b chronic kidney disease (CMS/HCC) Expected: 08/25/2023 (Approximate), Expires: 08/25/2024 [facility] Work Phone: Comment on above: Expected: 08/25/2023 (Approximate), Expi res: 08/25/2024 Start: 07-02-2023 COVID-19 Vaccine () COVID-19 Vaccine () [facility] Start: 07-02-2023 Influenza vaccination [facility] Start: 06-21-2023 End: 06-21-2023 Patient encounter procedure 06/21/2023 1:15 PM EDT Office Visit [facility] [place] [address] [place] [address] Paty Ortega, TRISTAN [address] [place] [address] [facility] [place] Start: 06-19-2023 Diabetic foot examination Foot Exam [facility] Start: 06-01-2023 End: 02-20-2024 Comprehensive metabolic 2000 panel - Serum or Plasma Comprehensive Metabolic Panel Lab Routine Type 1 diabetes mellitus with diabetic neuropathy (HCC) Expected: 06/01/2023, Expires: 02/20/2024 [facility] Work Phone: Comment on above: Expected: 06/01/2023, Expires: 4 Start: 06-01-2023 End: 02-20-2024 Hemoglobin A1c/Hemoglobin.total in Blood Hemoglobin A1c Lab Routine Type 1 diabetes mellitus with diabetic neuropathy (HCC) Expected: 06/01/2023, Expires: 02/20/2024 [facility] Comment on above: Expected: 06/01/2023, Expires: 4 Start: 05-14-2023 Hemoglobin A1c measurement A1C [facility] Start: 02-19-2023 End: 02-19-2023 Patient encounter procedure 02/19/2023 Office Visit Endocrinology Paty Ortega CNP [address] [place] [address] [facility] [place] Start: 02-13-2023 Diabetic foot examination Foot Exam [facility] Start: 02-05-2023 End: 02-05-2023 Patient encounter procedure 02/05/2023 Appointment Cardiology Paty Ortega CNP [address] [place] [address] [facility] Start: 01-30-2023 End: 10-20-2023 Complete blood count with white cell differential, manual CBC and Differential Lab Routine Type 1 diabetes mellitus with diabetic neuropathy (HCC) Expected: 01/30/2023, Expires: 10/20/2023 [facility] Comment on above: Expected: 01/30/2023, Expires: 3 Start: 01-30-2023 End: 10-20-2023 Comprehensive metabolic 2000 panel - Serum or Plasma Comprehensive Metabolic Panel Lab Routine Type 1 diabetes mellitus with diabetic neuropathy (HCC) Expected: 01/30/2023, Expires: 10/20/2023 [facility] Comment on above: Expected: 01/30/2023, Expires: 3 Start: 01-30-2023 End: 10-20-2023 Hemoglobin A1c/Hemoglobin.total in Blood Hemoglobin A1c Lab Routine Type 1 diabetes mellitus with diabetic neuropathy (HCC) Expected: 01/30/2023, Expires: 10/20/2023 [facility] Comment on above: Expected: 01/30/2023, Expires: 3 Start: 01-30-2023 End: 10-20-2023 Lipid 1996 panel - Serum or Plasma Lipid Panel Lab Routine Type 1 diabetes mellitus with diabetic neuropathy (HCC) Expected: 01/30/2023, Expires: 10/20/2023 [facility] Comment on above: Expected: 01/30/2023, Expires: 3 Start: 01-30-2023 End: 10-19-2023 Microalbumin measurement, urine, quantitative Microalbumin/Creatinine Ratio, UR Random Lab Routine Type 1 diabetes mellitus with diabetic neuropathy (HCC) Expected: 01/30/2023, Expires: 10/19/2023 [facility] Comment on above: Expected: 01/30/2023, Expires: 3 Start: 01-30-2023 End: 10-20-2023 Prostate specific Ag [Mass/volume] in Serum or Plasma PSA, Screen Lab Routine Prostate cancer screening Expected: 01/30/2023, Expires: 10/20/2023 [facility] Comment on above: Expected: 01/30/2023, Expires: 3 Start: 01-30-2023 End: 10-20-2023 Thyrotropin [Units/volume] in Serum or Plasma TSH Lab Routine Type 1 diabetes mellitus with diabetic neuropathy (HCC) Expected: 01/30/2023, Expires: 10/20/2023 [facility] Comment on above: Expected: 01/30/2023, Expires: 3 Start: 01-30-2023 End: 10-20-2023 Thyroxine (T4) free [Mass/volume] in Serum or Plasma T4, Free Lab Routine Type 1 diabetes mellitus with diabetic neuropathy (HCC) Expected: 01/30/2023, Expires: 10/20/2023 [facility] Comment on above: Expected: 01/30/2023, Expires: 3 Start: 01-25-2023 [email or web address], Provider: Zoila Lopez, Status: Pen, Time: 2:45 PM [email or web address], Provider: Zoila Lopez, Status: Pen, Time: 2:45 PM [facility] Work Phone: Start: 01-18-2023 PTRECHECKA, Provider: Carlene Whitehead, Status: Pen, Time: 2:00 PM PTRECHECKA, Provider: Carlene Whitehead, Status: Pen, Time: 2:00 PM [facility] Work Phone: Start: 01-15-2023 [email or web address], Provider: Chaya Chan, Status: Pen, Time: 10:00 AM PTFUADULT4, Provider: Chaya Chan, Status: Pen, Time: 10:00 AM [facility]: Start: 01-13-2023 [email or web address], Provider: Chaya Chan, Status: Pen, Time: 10:00 AM PTFUADULT4, Provider: Chaya Chan, Status: Pen, Time: 10:00 AM [facility] Work Phone: Start: 01-08-2023 [email or web address], Provider: Chaya Chan, Status: Pen, Time: 10:00 AM PTFUADULT4, Provider: Chaya Chan, Status: Pen, Time: 10:00 AM [facility]: Start: 01-06-2023 [email or web address], Provider: Zoila Lopez, Status: Pen, Time: 10:00 AM PTFUADULT4, Provider: Zoila Lopez, Status: Pen, Time: 10:00 AM [facility] Work [facility]: Start: 01-01-2023 [email or web address], Provider: Zoila Lopez, Status: Pen, Time: 10:45 AM PTFUADULT4, Provider: Zoila Lopez, Status: Pen, Time: 10:45 AM [facility] Work [facility]: Start: 12-30-2022 [email or web address], Provider: Zoila Lopez, Status: Pen, Time: 4:15 PM PTFUADULT4, Provider: Zoila Lopez, Status: Pen, Time: 4:15 PM [facility] Work Phone: Start: 12-25-2022 PTFUADULT4, Provider: Chaya Chan, Status: Pen, Time: 7:45 AM PTFUADULT4, Provider: Chaya Chan, Status: Pen, Time: 7:45 AM [facility] Work [facility]: Start: 10-19-2022 End: 10-19-2022 Patient encounter procedure 10/19/2022 Office Visit Endocrinology Paty Ortega, DRAPERY AND UPHOLSTERY MEASURER [address] [place] [address] [facility] [place] Start: 10-13-2022 Diabetic foot examination Foot Exam [facility] Start: 09-08-2022 Hemoglobin A1c measurement A1C [facility] Start: 07-02-2022 Influenza vaccination [facility] Start: 06-20-2022 Diabetic foot examination Foot Exam [facility] Start: 06-19-2022 End: 06-19-2022 Patient encounter procedure 06/19/2022 Office Visit Endocrinology Paty Ortega CNP [address] [place] [address] [facility] [place] Start: 06-11-2022 Microalbumin measurement, urine, quantitative Urine Microalbumin [facility] Start: 05-27-2022 History and physical examination, annual for health maintenance Wellness Visit [facility] Start: 05-27-2022 Medicare Wellness Visit Medicare Wellness Visit [facility] Start: 04-13-2022 Hemoglobin A1c measurement A1C [facility] Start: 03-06-2022 COVID-19 Vaccine (4 - Booster for Moderna series) COVID-19 Vaccine (4 - Booster for Moderna series) [facility] Start: 02-18-2022 Diabetic foot examination Foot Exam [facility] Start: 02-13-2022 End: 02-13-2022 Patient encounter procedure 02/13/2022 Office Visit Endocrinology Mary Vargas MD [address] [place] [address] [facility] [place] Start: 01-30-2022 End: 10-14-2022 Comprehensive metabolic 2000 panel - Serum or Plasma Comprehensive Metabolic Panel Lab Routine Type 1 diabetes mellitus with diabetic neuropathy (HCC) Expected: 01/30/2022, Expires: 10/14/2022 [facility] Work Phone: Comment on above: Expected: 01/30/2022, Expires: 2 Start: 01-30-2022 End: 10-14-2022 Hemoglobin A1c/Hemoglobin.total in Blood Hemoglobin A1c Lab Routine Type 1 diabetes mellitus with diabetic neuropathy (HCC) Expected: 01/30/2022, Expires: 10/14/2022 [facility] Comment on above: Expected: 01/30/2022, Expires: 2 Start: 01-30-2022 End: 10-14-2022 Lipid 1996 panel - Serum or Plasma Lipid Panel Lab Routine Type 1 diabetes mellitus with diabetic neuropathy (HCC) Expected: 01/30/2022, Expires: 10/14/2022 [facility] Comment on above: Expected: 01/30/2022, Expires: 2 Start: 01-01-2022 COVID-19 Vaccine (4 - Booster for Moderna series) COVID-19 Vaccine (4 - Booster for Moderna series) [facility] Start: 01-01-2022 COVID-19 Vaccine (4 - Moderna series) COVID-19 Vaccine (4 - Moderna series) [facility] Start: 12-12-2021 Hemoglobin A1c measurement A1C [facility] Start: 12-12-2021 Microalbumin measurement, urine, quantitative Urine Microalbumin [facility] Start: 12-12-2021 Urine screening for protein [facility] Start: 10-18-2021 Diabetic foot examination Foot Exam [facility] Start: 10-14-2021 Glaucoma screening [facility] Start: 10-13-2021 End: 10-13-2021 Patient encounter procedure 10/13/2021 Office Visit Endocrinology Paty Ortega, DRAPERY AND UPHOLSTERY MEASURER [address] [place] [address] [facility] [place] Start: 10-03-2021 Albumin DL <= 20 mg/L (U) [Mass/Vol] Urine Microalbumin [facility] Start: 10-03-2021 Microalbumin measurement, urine, quantitative Urine Microalbumin [facility] Start: 10-01-2021 End: 06-21-2022 Comprehensive metabolic 2000 panel - Serum or Plasma Comprehensive Metabolic Panel Lab Routine Type 1 diabetes mellitus with diabetic polyneuropathy (HCC) Expected: 10/01/2021, Expires: 06/21/2022 [facility] Work Phone: Comment on above: Expected: 10/01/2021, Expires: 2 Start: 10-01-2021 End: 06-21-2022 Hemoglobin A1c/Hemoglobin.total in Blood Hemoglobin A1c Lab Routine Type 1 diabetes mellitus with diabetic polyneuropathy (HCC) Expected: 10/01/2021, Expires: 06/21/2022 [facility] Comment on above: Expected: 10/01/2021, Expires: 2 Start: 10-01-2021 End: 06-21-2022 Thyrotropin [Units/volume] in Serum or Plasma TSH Lab Routine Type 1 diabetes mellitus with diabetic polyneuropathy (HCC) Expected: 10/01/2021, Expires: 06/21/2022 [facility] Comment on above: Expected: 10/01/2021, Expires: 2 Start: 10-01-2021 End: 06-21-2022 Thyroxine (T4) free [Mass/volume] in Serum or Plasma T4, Free Lab Routine Type 1 diabetes mellitus with diabetic polyneuropathy (HCC) Expected: 10/01/2021, Expires: 06/21/2022 [facility] Comment on above: Expected: 10/01/2021, Expires: 2 Start: 09-11-2021 Hemoglobin A1c measurement A1C [facility] Start: 08-13-2021 Hemoglobin A1c measurement A1C [facility] Start: 07-31-2021 COVID-19 Vaccine (3 - Booster for Moderna series) COVID-19 Vaccine (3 - Booster for Moderna series) [facility] Start: 07-04-2021 Prostate specific antigen measurement PSA Level [facility] Start: 07-02-2021 Influenza vaccination Sequential Influenza Vaccine (#1) [facility] Start: 06-20-2021 End: 06-20-2021 Patient encounter procedure 06/20/2021 Office Visit Endocrinology Paty Ortega CNP [address] [place] [address] [phone] [facility] [place] Start: 04-16-2021 History and physical examination, annual for health maintenance Wellness Visit [facility] Start: 04-03-2021 HbA1c (Bld) [Mass fraction] A1C [facility] Start: 02-18-2021 End: 02-18-2021 Office Visit 02/18/2021 Office Visit Endocrinology Mary Vargas MD [address] [place] [address] [phone] [facility] Start: 02-02-2021 End: 10-19-2021 Comprehensive metabolic 2000 panel Comprehensive Metabolic Panel Lab Routine Type 1 diabetes mellitus with diabetic polyneuropathy (HCC) Expected: 02/02/2021, Expires: 10/19/2021 [facility] Comment on above: Expected: 02/02/2021, Expires: Start: 02-02-2021 End: 10-19-2021 Free T4 [Mass/Vol] T4, Free Lab Routine Type 1 diabetes mellitus with diabetic polyneuropathy (HCC) Expected: 02/02/2021, Expires: 10/19/2021 [facility] Comment on above: Expected: 02/02/2021, Expires: Start: 02-02-2021 End: 10-19-2021 HbA1c (Bld) [Mass fraction] Hemoglobin A1c Lab Routine Type 1 diabetes mellitus with diabetic polyneuropathy (HCC) Expected: 02/02/2021, Expires: 10/19/2021 [facility] Comment on above: Expected: 02/02/2021, Expires: Start: 02-02-2021 End: 10-19-2021 TSH Qn TSH Lab Routine Type 1 diabetes mellitus with diabetic polyneuropathy (HCC) Expected: 02/02/2021, Expires: 10/19/2021 [facility] Comment on above: Expected: 02/02/2021, Expires: Start: 12-11-2020 HbA1c (Bld) [Mass fraction] A1C [facility] Start: 11-16-2020 Diabetic foot examination Foot Exam [facility] Start: 10-18-2020 End: 10-18-2020 Office Visit 10/18/2020 Office Visit Endocrinology Keeley Patton, DRAPERY AND UPHOLSTERY MEASURER [address] [address] [phone] [facility] Start: 10-01-2020 End: 06-19-2021 Comprehensive metabolic 2000 panel Comprehensive Metabolic Panel Lab Routine Type 1 diabetes mellitus with diabetic polyneuropathy (HCC) Expected: 10/01/2020, Expires: 06/19/2021 [facility] Comment on above: Expected: 10/01/2020, Expires: Start: 10-01-2020 End: 06-19-2021 HbA1c (Bld) [Mass fraction] Hemoglobin A1c Lab Routine Type 1 diabetes mellitus with diabetic polyneuropathy (HCC) Expected: 10/01/2020, Expires: 06/19/2021 [facility] Comment on above: Expected: 10/01/2020, Expires: 1 Start: 10-01-2020 End: 06-19-2021 Lipid 1996 panel Lipid Panel Lab Routine Type 1 diabetes mellitus with diabetic polyneuropathy (HCC) Expected: 10/01/2020, Expires: 06/19/2021 [facility] Comment on above: Expected: 10/01/2020, Expires: 1 Start: 10-01-2020 End: 06-18-2021 Microalbumin measurement, urine, quantitative Microalbumin/Creatinine Ratio, UR Random Lab Routine Type 1 diabetes mellitus with diabetic polyneuropathy (HCC) Expected: 10/01/2020, Expires: 06/18/2021 [facility] Comment on above: Expected: 10/01/2020, Expires: 1 Start: 07-17-2020 Diabetic foot examination FOOT EXAM [facility] Start: 07-02-2020 Influenza vaccination Sequential Influenza Vaccine (#1) [facility] Start: 07-02-2020 Influenza vaccination given Sequential Influenza Vaccine (#1) [facility] Start: 05-03-2020 HbA1c (Bld) [Mass fraction] A1C [facility] Start: 03-15-2020 End: 03-15-2020 Office Visit 03/15/2020 Office Visit Endocrinology Keeley Patton, DRAPERY AND UPHOLSTERY MEASURER [address] [address] [phone] [facility] Start: 03-13-2020 Diabetic foot examination FOOT EXAM [facility] Start: 01-02-2020 HbA1c (Bld) [Mass fraction] A1C [facility] Start: 11-16-2019 End: 11-16-2019 Office Visit 11/16/2019 Office Visit Endocrinology Paty Ortega CNP [address] [address] [phone] [facility] Start: 11-11-2019 Diabetic foot examination FOOT EXAM [facility] Start: 07-17-2019 End: 07-17-2019 Office Visit 07/17/2019 Office Visit Endocrinology Keeley Patton, TRISTAN [address] [place] [address] [phone] [facility] Start: 07-05-2019 Diabetic foot examination FOOT EXAM [facility] Start: 07-02-2019 Influenza vaccination given [facility] Start: 03-13-2019 End: 03-13-2019 Ambulatory 03/13/2019 Office Visit Endocrinology Mary Vargas MD [address] [place] [address] [phone] [facility] Start: 02-28-2019 Diabetic foot examination (regime/therapy) FOOT EXAM [facility] Start: 01-31-2019 Pneumococcal vaccination PNEUMOCOCCAL VACCINE AGE 65+ (2 of 2 - PPSV23) [facility] Start: 2018 Respiratory Syncytial Virus Immunization: Risk, 60-74 Risk, or 75+ (1 - 1-dose 75+ series) Respiratory Syncytial Virus Immunization: Risk, 60-74 Risk, or 75+ (1 - 1-dose 75+ series) [facility] Start: 2018 RSV High Risk: (Elderly (60+) or Population) (1 - 1-dose 75+ series) RSV High Risk: (Elderly (60+) or Population) (1 - 1-dose 75+ series) [facility] Start: 11-08-2018 End: 11-08-2018 Ambulatory 11/08/2018 Office Visit Endocrinology Ya Parker PA-C [address] [place] [address] [phone] [facility] Start: 10-29-2018 Diabetic foot examination (regime/therapy) FOOT EXAM [facility] Work Phone: Start: 07-05-2018 End: 07-05-2018 Ambulatory 07/05/2018 Office Visit Endocrinology Paty Ortega CNP [address] [place] [address] [phone] [facility] Start: 07-02-2018 Influenza vaccination [facility] Start: 07-02-2018 Influenza vaccination given SEQUENTIAL INFLUENZA VACCINE (#1) [facility] Start: 02-28-2018 Ambulatory 02/28/2018 Office Visit Endocrinology Chon Alexandra BuckTRISTAN titus [address] [place] [address] [phone] [facility] Start: 02-15-2018 3 comp foot exam completed FOOT EXAM [facility] Work Phone: Start: 10-29-2017 Ambulatory 10/29/2017 Office Visit Endocrinology Mary Vargas MD [address] [place] [address] [phone] [facility] Start: 07-02-2017 Influenza vaccination SEQUENTIAL INFLUENZA VACCINE (#1) [facility] Work Phone: Start: 07-02-2017 SEQUENTIAL INFLUENZA VACCINE (#1) SEQUENTIAL INFLUENZA VACCINE (#1) [facility] Work Phone: Start: 05-10-2017 HbA1c [facility] Work Phone: Start: 2008 ABDOMINAL AORTIC ULTRASOUND ABDOMINAL AORTIC ULTRASOUND [facility] Work Phone: Start: 2008 Fall risk assessment [facility] Start: 2008 Pneumococcal vaccination PNEUMOCOCCAL VACCINE AGE 65+ (1 of 2 - PCV13) [facility] Work Phone: Start: 2008 PNEUMOCOCCAL VACCINE AGE 65+ (1 of 2 - PCV13) PNEUMOCOCCAL VACCINE AGE 65+ (1 of 2 - PCV13) [facility] Work Phone: Start: 2008 Ultrasound scan of abdominal aorta ABDOMINAL AORTIC ULTRASOUND [facility] Work Phone: Start: 2003 RSV patients and/or patients aged 60+ years (1 - 1-dose 60+ series) RSV patients and/or patients aged 60+ years (1 - 1-dose 60+ series) [facility] Start: 2003 Zoster vacc, sc ZOSTER VACCINE [facility] Work Phone: Start: 1993 Administration of herpes zoster vaccine ZOSTER VACCINES (1 of 2) [facility] Start: 1993 ZOSTER VACCINES (1 of 2) ZOSTER VACCINES (1 of 2) [facility] Start: 1965 DTaP/Tdap/Td Vaccines (1 - Tdap) DTaP/Tdap/Td Vaccines (1 - Tdap) [facility] Start: 1961 Hepatitis C antibody, confirmatory test Hepatitis C Screening [facility] Start: 1961 Hepatitis C screening Hepatitis C Screening [facility] Start: 1955 Adolescent depression screening assessment Depression Screening (PHQ9) [facility] Start: 1955 Depression screening using PHQ-9 (Patient Health Questionnaire 9) score [facility] Start: 1953 Albumin Test strip detection limit <= 20 mg/L mass conc (U) URINE MICROALBUMIN [facility] Work Phone: Start: 1953 Diabetic foot examination Diabetes: Foot Exam [facility] Start: 1953 Glaucoma screening [facility] Start: 1953 Ophthalmic examination and evaluation OPHTHALMOLOGY EXAM [facility] Start: 1953 Urine, microalbumin URINE MICROALBUMIN [facility] Work Phone: Start: 1949 Pneumococcal Vaccine: Age 65+ (1 of 2 - PPSV23) Pneumococcal Vaccine: Age 65+ (1 of 2 - PPSV23) [facility] Start: 1946 History and physical examination, annual for health maintenance Wellness Visit [facility] Start: 1943 End: 1943 Low-dose CT Lung Cancer Screen Low-dose CT Lung Cancer Screen [facility] Work Phone: Start: 1943 Protein mass conc COLONOSCOPY [facility] Start: 1943 Screening colonoscopy COLONOSCOPY [facility] Work Phone: Start: 1943 End: 1943 Screening for malignant neoplasm of lung Low-dose CT Lung Cancer Screen [facility] Start: 1943 End: 1943 Tetanus vaccination [facility] Start: 1943 Colonoscopy COLONOSCOPY [facility] Work Phone: Start: 1943 Cyanocobalamin vitamin b-12 Vitamin B-12 [facility] Start: 1943 Diabetes: Celiac Disease Screening Diabetes: Celiac Disease Screening [facility] Start: 1943 Fall risk assessment Falls Risk Assessment [facility] Start: 1943 Low dose computed tomography of chest without contrast Low-dose CT Lung Cancer Screen [facility] Start: 1943 Medicare Annual Wellness Visit Medicare Annual Wellness Visit (AWV) [facility] Start: 1943 Prostate specific antigen measurement PSA Level [facility] Start: 1943 Screening for malignant neoplasm of colon Colorectal Cancer Screening: Colonoscopy [facility] Start: 1943 TETANUS EVERY 10 YR TETANUS EVERY 10 YR [facility] Work Phone: Alanine aminotransferase [Enzymatic activity/volume] in Serum or Plasma [facility] Alanine aminotransferase [Enzymatic activity/volume] in Serum or Plasma [facility] Alanine aminotransferase [Enzymatic activity/volume] in Serum or Plasma [facility] Albumin [Mass/volume ] in Serum or Plasma [facility] Albumin [Mass/volume ] in Serum or Plasma [facility] Albumin [Mass/volume ] in Serum or Plasma [facility] Alkaline phosphatase [Enzymatic activity/volume] in Serum or Plasma [facility] Alkaline phosphatase [Enzymatic activity/volume] in Serum or Plasma [facility] Alkaline phosphatase [Enzymatic activity/volume] in Serum or Plasma [facility] Anion gap in Serum o r Plasma [facility] Anion gap in Serum o r Plasma [facility] Anion gap in Serum o r Plasma [facility] aPTT in Platelet poo r plasma by Coagulation assay aPTT - baseline Lab STAT As needed (Lab) for 1 Occurrences starting 11/26/2023 [facility] Work Phone: Comment on above: As needed (Lab) for 1 Occurrences starti ng 11/26/2023 Bacteria identified in Blood by Culture [facility] Work Phone: End: 11-26-2023 Bacteria identified in Blood by Culture [facility] Work Phone: Comment on above: STAT (Lab) for 1 Occurrences starting until 11/26/2023 Bacteria identified in Blood by Culture [facility] Work Phone: End: 10-27-2024 Bacteria identified in Unspecified specimen by Aerobe culture [facility] Work Phone: Comment on above: Once for 1 Occurrences starting 10/27/20 until 10/27/2024 End: 06-18-2018 Basic metabolic 2000 panel Basic Metabolic Panel Routine Type 1 diabetes mellitus with diabetic neuropathy (HCC) 1 Occurrences starting 06/17/2017 until 06/18/2018 [facility] [facility] Work Phone: Comment on above: 1 Occurrences starting 06/17/2017 until 06/18/2018 End: 10-14-2023 Basic metabolic 2000 panel - Serum or Plasma Basic Metabolic Panel Lab Routine Morning draw (Lab) for 3 Occurrences starting 10/12/2023 until 10/14/2023, 1 completed [facility] Work Phone: Comment on above: Morning draw (Lab) for 3 Occurrences sta rting 10/12/2023 until 10/14/2023, 1 completed End: 03-09-2026 Basic metabolic 2000 panel - Serum or Plasma Basic metabolic panel Lab Routine Coronary 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 NSTEMI (non-ST elevated myocardial infarction) (HCC) 1 Occurrences starting 03/09/2025 until 03/09/2026 [facility] [facility] Work Phone: Comment on above: 1 Occurrences starting 03/09/2025 until 03/09/2026 Bilirubin, total measurement [facility] Bilirubin, total measurement [facility] Bilirubin, total measurement [facility] BUN/Creatinine ratio [facility] BUN/Creatinine ratio [facility] BUN/Creatinine ratio [facility] Calcium [Mass/volume ] in Serum or Plasma [facility] Calcium [Mass/volume ] in Serum or Plasma [facility] Calcium [Mass/volume ] in Serum or Plasma [facility] Carbon dioxide, tota l [Moles/volume] in Central venous blood [facility] Carbon dioxide, tota l [Moles/volume] in Central venous blood [facility] Carbon dioxide, tota l [Moles/volume] in Central venous blood [facility] End: 04-20-2022 Carotid artery doppler assessment Ultrasound doppler carotid Vascular Ultrasound Routine Bilateral carotid artery stenosis 1 Occurrences starting 02/18/2021 until 04/20/2022 [facility] Comment on above: 1 Occurrences starting 02/18/2021 until 04/20/2022 End: 12-20-2023 Carotid artery doppler assessment Ultrasound doppler carotid Vascular Ultrasound Routine Bilateral carotid artery stenosis 1 Occurrences starting 10/19/2022 until 12/20/2023 [facility] Work Phone: Comment on above: 1 Occurrences starting 10/19/2022 until 12/20/2023 Cath plmt l hrt & ar ts w/njx & angio img s&i LEFT HEART CATH Cardiovascular stress test abnormal Fatigue, unspecified type SOB (shortness of breath) [facility] End: 02-28-2019 CBC and Differential CBC and Differential Routine Type 1 diabetes mellitus with diabetic neuropathy (HCC) 1 Occurrences starting 02/28/2018 until 02/28/2019 [facility] CBC panel - Blood by Automated count CBC Lab STAT As needed (Lab) for 1 Occurrences starting 11/26/2023 [facility] Work Phone: Comment on above: As needed (Lab) for 1 Occurrences starti ng 11/26/2023 End: 12-02-2023 CBC panel - Blood by Automated count CBC Lab STAT Every other day (Lab) for 3 Occurrences starting 11/28/2023 until 12/02/2023 [facility] Work Phone: Comment on above: Every other day (Lab) for 3 Occurrences starting 11/28/2023 until 12/02/2023 End: 10-14-2023 CBC W Auto Differential panel - Blood CBC and Auto Differential Lab Routine Morning draw (Lab) for 3 Occurrences starting 10/12/2023 until 10/14/2023, 2 completed [facility] Work Phone: Comment on above: Morning draw (Lab) for 3 Occurrences sta rting 10/12/2023 until 10/14/2023, 2 completed Cholesterol [Mass/volume] in Serum or Plasma [facility] Cholesterol in HDL [Mass/volume] in Serum or Plasma [facility] End: 11-11-2019 Complete blood count with white cell differential, manual CBC and Differential Routine Type 1 diabetes mellitus with diabetic neuropathy (HCC) 1 Occurrences starting 11/11/2018 until 11/11/2019 [facility] Comment on above: 1 Occurrences starting 11/11/2018 until 11/11/2019 End: 03-13-2020 Complete blood count with white cell differential, manual CBC and Differential Routine 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) 1 Occurrences starting 03/13/2019 until 03/13/2020 [facility] Comment on above: 1 Occurrences starting 03/13/2019 until 03/13/2020 End: 02-19-2022 Complete blood count with white cell differential, manual CBC and Differential Lab Routine Type 1 diabetes mellitus with diabetic polyneuropathy (HCC) 1 Occurrences starting 02/18/2021 until 02/19/2022 [facility] Comment on above: 1 Occurrences starting 02/18/2021 until 02/19/2022 End: 02-14-2023 Complete blood count with white cell differential, manual CBC and Differential Lab Routine Type 1 diabetes mellitus with diabetic neuropathy (HCC) 1 Occurrences starting 02/13/2022 until 02/14/2023 [facility] Work Phone: Comment on above: 1 Occurrences starting 02/13/2022 until 02/14/2023 End: 02-18-2025 Complete blood count with white cell differential, manual CBC and Differential Lab Routine Type 1 diabetes mellitus with diabetic neuropathy (HCC) 1 Occurrences starting 02/18/2024 until 02/18/2025 [facility] Comment on above: 1 Occurrences starting 02/18/2024 until 02/18/2025 End: 07-22-2025 Complete blood count with white cell differential, manual CBC and Differential Lab Routine Type 1 diabetes mellitus with diabetic neuropathy (HCC) 1 Occurrences starting 07/21/2024 until 07/22/2025 [facility] Comment on above: 1 Occurrences starting 07/21/2024 until 07/22/2025 End: 03-13-2026 Complete blood count with white cell differential, manual CBC and Differential Lab Routine Type 1 diabetes mellitus with diabetic neuropathy (HCC) 1 Occurrences starting 03/12/2025 until 03/13/2026 [facility] Comment on above: 1 Occurrences starting 03/12/2025 until 03/13/2026 End: 10-27-2025 Complete PFT with Pre and Post Bronchodilator Complete PFT with Pre and Post Bronchodilator PFT Routine Pulmonary emphysema, unspecified emphysema type (HCC) 1 Occurrences starting 10/27/2024 until 10/27/2025 [facility] Comment on above: 1 Occurrences starting 10/27/2024 until 10/27/2025 End: 07-06-2019 Comprehensive metabolic 2000 panel Comprehensive Metabolic Panel Routine Type 1 diabetes mellitus with diabetic neuropathy (HCC) 1 Occurrences starting 07/05/2018 until 07/06/2019 [facility] Comment on above: 1 Occurrences starting 07/05/2018 until 07/06/2019 End: 11-11-2019 Comprehensive metabolic 2000 panel Comprehensive Metabolic Panel Routine Essential hypertension 1 Occurrences starting 11/11/2018 until 11/11/2019 [facility] Comment on above: 1 Occurrences starting 11/11/2018 until 11/11/2019 End: 07-17-2020 Comprehensive metabolic 2000 panel Comprehensive Metabolic Panel Lab Routine Type 1 diabetes mellitus with diabetic polyneuropathy (HCC) 1 Occurrences starting 07/17/2019 until 07/17/2020 [facility] Comment on above: 1 Occurrences starting 07/17/2019 until 07/17/2020 End: 11-16-2020 Comprehensive metabolic 2000 panel Comprehensive Metabolic Panel Lab Routine Type I diabetes mellitus with neurological manifestations, uncontrolled (HCC) 1 Occurrences starting 11/16/2019 until 11/16/2020 [facility] Comment on above: 1 Occurrences starting 11/16/2019 until 11/16/2020 End: 03-13-2020 Comprehensive metabolic 2000 panel Comprehensive Metabolic Panel Routine 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) 1 Occurrences starting 03/13/2019 until 03/13/2020 [facility] Comment on above: 1 Occurrences starting 03/13/2019 until 03/13/2020 End: 02-19-2022 Comprehensive metabolic 2000 panel - Serum or Plasma Comprehensive Metabolic Panel Lab Routine Type 1 diabetes mellitus with diabetic polyneuropathy (HCC) 1 Occurrences starting 02/18/2021 until 02/19/2022 [facility] Comment on above: 1 Occurrences starting 02/18/2021 until 02/19/2022 End: 02-14-2023 Comprehensive metabolic 2000 panel - Serum or Plasma Comprehensive Metabolic Panel Lab Routine Type 1 diabetes mellitus with diabetic neuropathy (HCC) 1 Occurrences starting 02/13/2022 until 02/14/2023 [facility] Comment on above: 1 Occurrences starting 02/13/2022 until 02/14/2023 End: 06-20-2023 Comprehensive metabolic 2000 panel - Serum or Plasma Comprehensive Metabolic Panel Lab Routine Type 1 diabetes mellitus with diabetic neuropathy (HCC) 1 Occurrences starting 06/19/2022 until 06/20/2023 [facility] Work Phone: Comment on above: 1 Occurrences starting 06/19/2022 until 06/20/2023 End: 02-18-2025 Comprehensive metabolic 2000 panel - Serum or Plasma Comprehensive Metabolic Panel Lab Routine Type 1 diabetes mellitus with diabetic neuropathy (HCC) 1 Occurrences starting 02/18/2024 until 02/18/2025 [facility] Work Phone: Comment on above: 1 Occurrences starting 02/18/2024 until 02/18/2025 End: 07-22-2025 Comprehensive metabolic 2000 panel - Serum or Plasma Comprehensive Metabolic Panel Lab Routine Type 1 diabetes mellitus with diabetic neuropathy (HCC) 1 Occurrences starting 07/21/2024 until 07/22/2025 [facility] Work Phone: Comment on above: 1 Occurrences starting 07/21/2024 until 07/22/2025 End: 11-14-2025 Comprehensive metabolic 2000 panel - Serum or Plasma Comprehensive Metabolic Panel Lab Routine Type 1 diabetes mellitus with diabetic neuropathy (HCC) 1 Occurrences starting 11/13/2024 until 11/14/2025 [facility] Work Phone: Comment on above: 1 Occurrences starting 11/13/2024 until 11/14/2025 End: 03-13-2026 Comprehensive metabolic 2000 panel - Serum or Plasma Comprehensive Metabolic Panel Lab Routine Type 1 diabetes mellitus with diabetic neuropathy (HCC) 1 Occurrences starting 03/12/2025 until 03/13/2026 [facility] Work Phone: Comment on above: 1 Occurrences starting 03/12/2025 until 03/13/2026 End: 02-28-2019 Comprehensive metabolic panel [AGGREGATE] Comprehensive Metabolic Panel Routine Type 1 diabetes mellitus with diabetic neuropathy (HCC) Essential hypertension 1 Occurrences starting 02/28/2018 until 02/28/2019 [facility] End: 10-30-2018 Comprehensive metabolic panel [AGGREGATE] Comprehensive Metabolic Panel Routine Type 1 diabetes mellitus with diabetic neuropathy (HCC) Essential hypertension Pure hypercholesterolemia 1 Occurrences starting 10/29/2017 until 10/30/2018 [facility] Work Phone: Creatinine [Mass/volume] in Serum or Plasma [facility] Creatinine [Mass/volume] in Serum or Plasma [facility] Creatinine [Mass/volume] in Serum or Plasma [facility] End: 11-26-2023 ECG 12 lead [facility] Work Phone: Comment on above: Once for 1 Occurrences starting 11/26/19 until 11/26/2023 Electrocardiogram, 12-lead PRN ACS symptoms Electrocardiogram, 12-lead PRN ACS symptoms ECG Routine As needed until discontinued starting 10/11/2023 [facility] Work Phone: Comment on above: As needed until discontinued starting Electrocardiogram, 12-lead PRN ACS symptoms Electrocardiogram, 12-lead PRN ACS symptoms ECG Routine As needed until discontinued starting 10/11/2023 [facility] Work Phone: Comment on above: As needed until discontinued starting Erythrocyte mean corpuscular volume determination [facility] Erythrocyte mean corpuscular volume determination [facility] Erythrocyte mean corpuscular volume determination [facility] End: 02-28-2019 External Lab Microalbumin/Creatinine External Lab Microalbumin/Creatinine Routine Type 1 diabetes mellitus with diabetic neuropathy (HCC) Essential hypertension 1 Occurrences starting 02/28/2018 until 02/28/2019 [facility] End: 11-11-2019 External Lab Microalbumin/Creatinine External Lab Microalbumin/Creatinine Routine Essential hypertension 1 Occurrences starting 11/11/2018 until 11/11/2019 [facility] Comment on above: 1 Occurrences starting 11/11/2018 until 11/11/2019 End: 02-19-2022 External Lab Microalbumin/Creatinine External Lab Microalbumin/Creatinine Lab Routine Type 1 diabetes mellitus with diabetic polyneuropathy (HCC) 1 Occurrences starting 02/18/2021 until 02/19/2022 [facility] Comment on above: 1 Occurrences starting 02/18/2021 until 02/19/2022 End: 02-14-2023 External Lab Microalbumin/Creatinine External Lab Microalbumin/Creatinine Lab Routine Type 1 diabetes mellitus with diabetic neuropathy (HCC) 1 Occurrences starting 02/13/2022 until 02/14/2023 [facility] Comment on above: 1 Occurrences starting 02/13/2022 until 02/14/2023 Glucose [Mass/volume ] in Serum or Plasma POCT GLUCOSE Point of Care Testing Routine 4x daily - AC and at bedtime until discontinued starting 10/11/2023 [facility] Work Phone: Comment on above: 4x daily - AC and at bedtime until disco ntinued starting 10/11/2023 End: 10-15-2023 Glucose [Mass/volume] in Serum or Plasma POCT GLUCOSE Point of Care Testing Routine 4 times daily before meals and at bedtime for 3 Days starting 10/12/2023 until 10/15/2023 [facility] Work Phone: Comment on above: 4 times daily before meals and at bedtim e for 3 Days starting 10/12/2023 until 10/15/2023 Glucose [Mass/volume ] in Serum or Plasma [facility] Glucose [Mass/volume ] in Serum or Plasma [facility] Glucose [Mass/volume ] in Serum or Plasma [facility] End: 02-28-2019 HbA1c Hemoglobin A1c Routine Type 1 diabetes mellitus with diabetic neuropathy (HCC) Essential hypertension 1 Occurrences starting 02/28/2018 until 02/28/2019 [facility] End: 10-30-2018 HbA1c Hemoglobin A1c Routine Type 1 diabetes mellitus with diabetic neuropathy (HCC) Essential hypertension Pure hypercholesterolemia 1 Occurrences starting 10/29/2017 until 10/30/2018 [facility] Work Phone: End: 07-17-2020 HbA1c (Bld) [Mass fraction] Hemoglobin A1c Lab Routine Type 1 diabetes mellitus with diabetic polyneuropathy (HCC) 1 Occurrences starting 07/17/2019 until 07/17/2020 [facility] [facility] Comment on above: 1 Occurrences starting 07/17/2019 until 07/17/2020 End: 11-16-2020 HbA1c (Bld) [Mass fraction] Hemoglobin A1c Lab Routine Type I diabetes mellitus with neurological manifestations, uncontrolled (HCC) 1 Occurrences starting 11/16/2019 until 11/16/2020 [facility] Comment on above: 1 Occurrences starting 11/16/2019 until 11/16/2020 End: 03-13-2020 HbA1c (Bld) [Mass fraction] Hemoglobin A1c Routine 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) 1 Occurrences starting 03/13/2019 until 03/13/2020 [facility] Comment on above: 1 Occurrences starting 03/13/2019 until 03/13/2020 Hematocrit [Volume Fraction] of Blood [facility] Hematocrit [Volume Fraction] of Blood [facility] Hematocrit [Volume Fraction] of [facility] Hemoglobin [Mass/volume] in Blood [facility] Hemoglobin [Mass/volume] in Blood [facility] Hemoglobin [Mass/volume] in Blood [facility] End: 02-19-2022 Hemoglobin A1c/Hemoglobin.total in Blood Hemoglobin A1c Lab Routine Type 1 diabetes mellitus with diabetic polyneuropathy (HCC) 1 Occurrences starting 02/18/2021 until 02/19/2022 [facility] Comment on above: 1 Occurrences starting 02/18/2021 until 02/19/2022 End: 02-14-2023 Hemoglobin A1c/Hemoglobin.total in Blood Hemoglobin A1c Lab Routine Type 1 diabetes mellitus with diabetic neuropathy (HCC) 1 Occurrences starting 02/13/2022 until 02/14/2023 [facility] Comment on above: 1 Occurrences starting 02/13/2022 until 02/14/2023 End: 06-20-2023 Hemoglobin A1c/Hemoglobin.total in Blood Hemoglobin A1c Lab Routine Type 1 diabetes mellitus with diabetic neuropathy (HCC) 1 Occurrences starting 06/19/2022 until 06/20/2023 [facility] Comment on above: 1 Occurrences starting 06/19/2022 until 06/20/2023 End: 02-18-2025 Hemoglobin A1c/Hemoglobin.total in Blood Hemoglobin A1c Lab Routine Type 1 diabetes mellitus with diabetic neuropathy (HCC) 1 Occurrences starting 02/18/2024 until 02/18/2025 [facility] Comment on above: 1 Occurrences starting 02/18/2024 until 02/18/2025 End: 07-22-2025 Hemoglobin A1c/Hemoglobin.total in Blood Hemoglobin A1c Lab Routine Type 1 diabetes mellitus with diabetic neuropathy (HCC) 1 Occurrences starting 07/21/2024 until 07/22/2025 [facility] Comment on above: 1 Occurrences starting 07/21/2024 until 07/22/2025 End: 11-14-2025 Hemoglobin A1c/Hemoglobin.total in Blood Hemoglobin A1c Lab Routine Type 1 diabetes mellitus with diabetic neuropathy (HCC) 1 Occurrences starting 11/13/2024 until 11/14/2025 [facility] Comment on above: 1 Occurrences starting 11/13/2024 until 11/14/2025 End: 03-13-2026 Hemoglobin A1c/Hemoglobin.total in Blood Hemoglobin A1c Lab Routine Type 1 diabetes mellitus with diabetic neuropathy (HCC) 1 Occurrences starting 03/12/2025 until 03/13/2026 [facility] Comment on above: 1 Occurrences starting 03/12/2025 until 03/13/2026 Hemoglobin A1c/Hemoglobin.total in Blood [facility] End: 07-06-2019 Hemoglobin A1c/Hemoglobin.total mass fraction (Bld) Hemoglobin A1c Routine Type 1 diabetes mellitus with diabetic neuropathy (HCC) 1 Occurrences starting 07/05/2018 until 07/06/2019 [facility] Comment on above: 1 Occurrences starting 07/05/2018 until 07/06/2019 End: 11-11-2019 Hemoglobin A1c/Hemoglobin.total mass fraction (Bld) Hemoglobin A1c Routine Type 1 diabetes mellitus with diabetic neuropathy (HCC) 1 Occurrences starting 11/11/2018 until 11/11/2019 [facility] Comment on above: 1 Occurrences starting 11/11/2018 until 11/11/2019 End: 06-18-2018 Hemoglobin A1c/Hemoglobin.total mass fraction (Bld) Hemoglobin A1c Routine Type 1 diabetes mellitus with diabetic neuropathy (HCC) 1 Occurrences starting 06/17/2017 until 06/18/2018 [facility] Work Phone: Comment on above: 1 Occurrences starting 06/17/2017 until 06/18/2018 Heparin unfractionat ed [Units/volume] in Platelet poor plasma by Chromogenic method [facility] Work Phone: Comment on above: As needed (Lab) for 1 Occurrences starti ng 11/26/2023 As needed (Lab) for 30 Occurrences starting 11/26/2023 End: 10-13-2023 Home O2 eval (desaturation screen) Home O2 eval (desaturation screen) Respiratory Care Routine Once for 1 Occurrences starting 10/13/2023 until 10/13/2023 [facility] Service Area Work Phone: Comment on above: Once for 1 Occurrences starting 10/13/20 until 10/13/2023 Lactic acid measurement [facility] Legionella pneumophi la Ag [Presence] in Urine [facility] Leukocytes [#/volume ] in Blood [facility] Leukocytes [#/volume ] in Blood [facility] Leukocytes [#/volume ] in Blood [facility] End: 11-11-2019 Lipid 1996 panel Lipid Panel Routine Type 1 diabetes mellitus with diabetic neuropathy (HCC) 1 Occurrences starting 11/11/2018 until 11/11/2019 [facility] Comment on above: 1 Occurrences starting 11/11/2018 until 11/11/2019 End: 07-17-2020 Lipid 1996 panel Lipid Panel Lab Routine Pure hypercholesterolemia 1 Occurrences starting 07/17/2019 until 07/17/2020 [facility] Comment on above: 1 Occurrences starting 07/17/2019 until 07/17/2020 End: 02-19-2022 Lipid 1996 panel - Serum or Plasma Lipid Panel Lab Routine Type 1 diabetes mellitus with diabetic polyneuropathy (HCC) 1 Occurrences starting 02/18/2021 until 02/19/2022 [facility] Comment on above: 1 Occurrences starting 02/18/2021 until 02/19/2022 End: 02-18-2025 Lipid 1996 panel - Serum or Plasma Lipid Panel Lab Routine Type 1 diabetes mellitus with diabetic neuropathy (HCC) 1 Occurrences starting 02/18/2024 until 02/18/2025 [facility] Comment on above: 1 Occurrences starting 02/18/2024 until 02/18/2025 End: 07-22-2025 Lipid 1996 panel - Serum or Plasma Lipid Panel Lab Routine Type 1 diabetes mellitus with diabetic neuropathy (HCC) 1 Occurrences starting 07/21/2024 until 07/22/2025 [facility] Comment on above: 1 Occurrences starting 07/21/2024 until 07/22/2025 End: 11-14-2025 Lipid 1996 panel - Serum or Plasma Lipid Panel Lab Routine Type 1 diabetes mellitus with diabetic neuropathy (HCC) Pure hypercholesterolemia 1 Occurrences starting 11/13/2024 until 11/14/2025 [facility] Comment on above: 1 Occurrences starting 11/13/2024 until 11/14/2025 End: 03-13-2026 Lipid 1996 panel - Serum or Plasma Lipid Panel Lab Routine Type 1 diabetes mellitus with diabetic neuropathy (HCC) 1 Occurrences starting 03/12/2025 until 03/13/2026 [facility] Comment on above: 1 Occurrences starting 03/12/2025 until 03/13/2026 End: 02-28-2019 Lipid panel Lipid Panel Routine Type 1 diabetes mellitus with diabetic neuropathy (HCC) 1 Occurrences starting 02/28/2018 until 02/28/2019 [facility] Low density lipoprot ein cholesterol measurement [facility] Mean corpuscular hemoglobin concentration determination [facility] Mean corpuscular hemoglobin concentration determination [facility] Mean corpuscular hemoglobin concentration determination [facility] Mean corpuscular hemoglobin determination [facility] Mean corpuscular hemoglobin determination [facility] Mean corpuscular hemoglobin determination [facility] Measurement of renal function [facility] Measurement of renal function [facility] Measurement of renal function [facility] Natriuretic peptide. B prohormone N-Terminal [Mass/volume] in Serum or Plasma [facility] Neutrophil count [facility] Neutrophil count [facility] Neutrophil count [facility] Neutrophil percent differential count [facility] Neutrophil percent differential count [facility] Neutrophil percent differential count [facility] Noninvasive Ventilation Noninvas frank Ventilation Respiratory Care Routine For RT frequency use only for continuous procedures with task-based reminders at 8a and 8p until discontinued starting 11/26/2023 [facility] Work Phone: Comment on above: For RT frequency use only for continuous procedures with task-based reminders at 8a and 8p until discontinued starting 11/26/2023 Patient Education [facility] Work Phone: Patient referral [facility] Work Phone: Platelets [#/volume] in Blood [facility] Platelets [#/volume] in Blood [facility] Platelets [#/volume] in Blood [facility] Potassium measurement [facility] Potassium measurement [facility] Potassium measurement [facility] Procalcitonin [Mass/volume] in Serum or Plasma by Immunoassay [facility] End: 03-12-2020 Prostate specific Ag [Mass/Vol] PSA, Screen Routine Prostate cancer screening 1 Occurrences starting 03/13/2019 until 03/12/2020 [facility] Comment on above: 1 Occurrences starting 03/13/2019 until 03/12/2020 End: 02-13-2023 Prostate specific Ag [Mass/volume] in Serum or Plasma PSA, Screen Lab Routine Prostate cancer screening 1 Occurrences starting 02/13/2022 until 02/13/2023 [facility] Comment on above: 1 Occurrences starting 02/13/2022 until 02/13/2023 Prothrombin time (PT) Protime-IN R Lab STAT As needed (Lab) for 1 Occurrences starting 11/26/2023 [facility] Work Phone: Comment on above: As needed (Lab) for 1 Occurrences starti ng 11/26/2023 End: 10-29-2018 PSA, Screen PSA, Screen Routine Prostate cancer screening 1 Occurrences starting 10/29/2017 until 10/29/2018 [facility] Work Phone: Red blood cell count [facility] Red blood cell count [facility] Red blood cell count [facility] Red cell distributio n width determination [facility] Red cell distributio n width determination [facility] Red cell distributio n width determination [facility] End: 10-11-2023 Respiratory care eval and treat Respiratory care eval and treat Respiratory Care Routine Once for 1 Occurrences starting 10/11/2023 until 10/11/2023 [facility] Work Phone: Comment on above: Once for 1 Occurrences starting 10/11/20 23 until 10/11/2023 Respiratory pathogen s DNA and RNA panel - Respiratory specimen by ALICE with probe detection [facility] Serum chloride measurement [facility] Serum chloride measurement [facility] Serum chloride measurement [facility] Sodium measurement [facility] Sodium measurement [facility] Sodium measurement [facility] End: 10-21-2024 SPECT Heart perfusion NM Myocardial Perfusion Multiple SPECT Imaging Routine Congestive heart failure, unspecified HF chronicity, unspecified heart failure type (HCC) 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 1 Occurrences starting 10/21/2023 until 10/21/2024 [facility] Work Phone: Comment on above: 1 Occurrences starting 10/21/2023 until 10/21/2024 End: 11-11-2019 T4 free mass conc T4, Free Routine Type 1 diabetes mellitus with diabetic neuropathy (HCC) 1 Occurrences starting 11/11/2018 until 11/11/2019 [facility] Comment on above: 1 Occurrences starting 11/11/2018 until 11/11/2019 End: 02-18-2025 Thyrotropin [Units/volume] in Serum or Plasma TSH Lab Routine Type 1 diabetes mellitus with diabetic neuropathy (HCC) 1 Occurrences starting 02/18/2024 until 02/18/2025 [facility] Comment on above: 1 Occurrences starting 02/18/2024 until 02/18/2025 End: 07-22-2025 Thyrotropin [Units/volume] in Serum or Plasma TSH Lab Routine Type 1 diabetes mellitus with diabetic neuropathy (HCC) 1 Occurrences starting 07/21/2024 until 07/22/2025 [facility] Comment on above: 1 Occurrences starting 07/21/2024 until 07/22/2025 End: 11-14-2025 Thyrotropin [Units/volume] in Serum or Plasma TSH Lab Routine Type 1 diabetes mellitus with diabetic neuropathy (HCC) 1 Occurrences starting 11/13/2024 until 11/14/2025 [facility] Comment on above: 1 Occurrences starting 11/13/2024 until 11/14/2025 Thyrotropin [Units/volume] in Serum or Plasma TSH with Reflex Free T4 Lab Routine 02/12/2025 10:25 AM EDT [facility] Work Phone: End: 03-13-2026 Thyrotropin [Units/volume] in Serum or Plasma TSH Lab Routine Type 1 diabetes mellitus with diabetic neuropathy (HCC) 1 Occurrences starting 03/12/2025 until 03/13/2026 [facility] Comment on above: 1 Occurrences starting 03/12/2025 until 03/13/2026 End: 11-11-2019 Thyrotropin Qn TSH Routine Type 1 diabetes mellitus with diabetic neuropathy (HCC) 1 Occurrences starting 11/11/2018 until 11/11/2019 [facility] Comment on above: 1 Occurrences starting 11/11/2018 until 11/11/2019 End: 02-28-2019 Thyroxine (T4) free T4, Free Routine Type 1 diabetes mellitus with diabetic neuropathy (HCC) 1 Occurrences starting 02/28/2018 until 02/28/2019 [facility] End: 02-18-2025 Thyroxine (T4) free [Mass/volume] in Serum or Plasma T4, Free Lab Routine Type 1 diabetes mellitus with diabetic neuropathy (HCC) 1 Occurrences starting 02/18/2024 until 02/18/2025 [facility] Comment on above: 1 Occurrences starting 02/18/2024 until 02/18/2025 End: 07-22-2025 Thyroxine (T4) free [Mass/volume] in Serum or Plasma T4, Free Lab Routine Type 1 diabetes mellitus with diabetic neuropathy (HCC) 1 Occurrences starting 07/21/2024 until 07/22/2025 [facility] Comment on above: 1 Occurrences starting 07/21/2024 until 07/22/2025 End: 01-14-2026 Thyroxine (T4) free [Mass/volume] in Serum or Plasma T4, Free Lab Routine Type 1 diabetes mellitus with diabetic neuropathy (HCC) 1 Occurrences starting 11/13/2024 until 11/14/2025 [facility] Comment on above: 1 Occurrences starting 11/13/2024 until 11/14/2025 End: 03-13-2026 Thyroxine (T4) free [Mass/volume] in Serum or Plasma T4, Free Lab Routine Type 1 diabetes mellitus with diabetic neuropathy (HCC) 1 Occurrences starting 03/12/2025 until 03/13/2026 [facility] Comment on above: 1 Occurrences starting 03/12/2025 until 03/13/2026 Total cholesterol:HD L ratio measurement [facility] Total protein measurement [facility] Total protein measurement [facility] Total protein measurement [facility] Triglycerides measurement [facility] End: 02-28-2019 TSH TSH Routine Type 1 diabetes mellitus with diabetic neuropathy (HCC) 1 Occurrences starting 02/28/2018 until 02/28/2019 [facility] Urea nitrogen [Mass/volume] in Serum or Plasma [facility] Urea nitrogen [Mass/volume] in Serum or Plasma [facility] Urea nitrogen [Mass/volume] in Serum or Plasma [facility] Urine culture [facility] VLDL cholesterol measurement [facility] Immunizations Immunization Date Immunization Notes Care Provider Nancy amor 07-03-2020 zoster vaccine recombinant Ayanna Albert DO Work Phone: [facility] Work Phone: 04-17-2020 zoster vaccine recombinant Ayanna Albert DO Work Phone: [facility] Work Phone: 03-31-2019 pneumococcal polysaccharide vaccine, 23 valent Ayanna Albert DO Work Phone: [facility] Work Phone: 01-31-2018 pneumococcal conjuga te vaccine, 13 valent Ayanna Albert DO Work Phone: [facility] Work Phone: 11-10-2016 HEMOGLOBIN A1C Ya Parker [facility] Work Phone: Payers Date Payer Category Payer Self-pay [id number] 2021 Medicare (Managed Care) [employer] [facility] [id number] 2021 Medicare PPO [employer] MEDICARE P JAYDON (PPO) [id number] 2021 Private Health Insurance [facility] [id number] 2015 Medicare [id number] 2015 Medicare [id number]. [id number] 2015 Medicare [id number]. [id number] 2015 Medicare [id number] 2.16.840.1.373344.3.249.13 1943 Unknown [id number] 2.16.840.1.329481.3.579.2. 1068 1943 Unknown [id number] 2.16.840.1.384909.3.579.2. 1068 1943 Unknown [id number] 2.16.840.1.944172.3.579.2. 1068 1943 Unknown [id number] 2.16.840.1.330548.3.579.2. 1068 1943 Unknown [id number] 2.16.840.1.289710.3.579.2. 1068 1943 Unknown [id number] 2.16.840.1.001485.3.579.2. 1068 1943 Unknown [id number] 2.16.840.1.048595.3.579.2. 1068 1943 Unknown [id number] 2.16.840.1.038548.3.579.2. 1068 1943 Unknown [id number] 2.16.840.1.195202.3.579.2. 1068 1943 Unknown [id number] 2.16.840.1.036338.3.579.2. 1068 1943 Unknown [id number] 2.16.840.1.091406.3.579.2. 1068 1943 Unknown [id number] 2.16.840.1.102897.3.579.2. 356 1943 Unknown [id number] 2.16.840.1.244676.3.579.2. 1244 1943 Unknown [id number] 2.16.840.1.940897.3.579.2. 1244 1943 Unknown [id number] 2.16.840.1.667355.3.579.2. 1244 1943 Unknown [id number] 2.16.840.1.400888.3.579.2. 903 1943 Unknown [id number] 2.16.840.1.202961.3.579.2. 3 1943 Unknown [id number] 2.16.840.1.980790.3.579.2. 1243 1943 Unknown [id number] 2.16.840.1.682546.3.579.2. 1943 Unknown [id number] 2.16.840.1.689020.3.579.2. 903 1943 Unknown [id number] 2.16.840.1.589658.3.579.2. 1943 Unknown [id number] 2.16.840.1.028876.3.579.2. 1943 Unknown [id number] 2.16.840.1.024730.3.579.2. 1943 Unknown [id number] 2.16.840.1.723126.3.579.2. 1943 Unknown [id number] 2.16.840.1.328881.3.579.2. 1943 Unknown [id number] 2.16.840.1.535848.3.579.2. 1943 Unknown [id number] 2.16.840.1.441063.3.579.2. 1943 Unknown [id number] 2.16.840.1.328856.3.579.2. 90 1943 Unknown [id number] 2.16.840.1.529527.3.579.2. 1943 Unknown [id number] 2.16.840.1.523015.3.579.2. 90 1943 Unknown [id number] 2.16.840.1.855674.3.579.2. 903 1943 Unknown [id number] 2.16.840.1.630537.3.579.2. 903 1943 Unknown [id number] 2.16.840.1.540611.3.579.2. 1244 1943 Unknown [id number] 2..840.1.687331.3.579.2. 1244 1943 Unknown [id number] 2.840.1.638647.3.579.2. 1244 Unknown [employer] Unknown [id number] 2.840.1.434490.3.579.2. 462 Unknown [id number] 2.840.1.640035.3.579.2. 462 Unknown [id number] 2.840.1.721109.3.579.2. 462 Unknown [id number] 2.840.1.833062.3.579.2. 462 Unknown [id number] 2.840.1.759224.3.579.2. 462 Unknown [id number] 2.840.1.233766.3.579.2. 462 Unknown [id number] 2.840.1.281119.3.579.2. 462 Unknown [id number] 2.840.1.258250.3.579.2. 462 Unknown [id number] 2.840.1.033872.3.579.2. 462 Unknown [id number] 2.840.1.772356.3.579.2. 462 Unknown [id number] 2.840.1.338732.3.579.2. 462 Unknown [id number] 2.840.1.274716.3.579.2. 462 Unknown [id number] 2.840.1.151125.3.579.2. 462 Unknown [id number] 2.16.840.1.622573.3.579.2. 462 Unknown [id number] 2.16.840.1.132846.3.579.2. 462 Unknown [id number] 2.16.840.1.936120.3.579.2. 462 Unknown [id number] 2.16.840.1.860042.3.579.2. 462 Unknown [id number] 2.16.840.1.792039.3.579.2. 462 Unknown [id number] 2.16.840.1.174882.3.579.2. 462 Unknown [id number] 2.840.1.183801.3.579.2. 462 Unknown [id number] 2.840.1.835234.3.579.2. 462 Unknown [id number] 2.840.1.317075.3.579.2. 462 Unknown [id number] 2.840.1.127050.3.579.2. 462 Unknown [id number] 2.16.840.1.980062.3.579.2. 462 Unknown [id number] 2.16.840.1.864193.3.579.2. 462 Unknown [id number] 2.16840.1.433412.3.579.2. 462 Unknown [id number] 2.840.1.999639.3.579.2. 462 Unknown [id number] 2.16.840.1.731256.3.579.2. 462 Unknown [id number] 2.16.840.1.380615.3.579.2. 462 Unknown [id number] 2.16.840.1.411357.3.579.2. 462 Unknown [id number] 2.16.840.1.749915.3.579.2. 462 Unknown [id number] 2.16.840.1.995417.3.579.2. 462 Unknown [id number] 2.16.840.1.711363.3.579.2. 462 Unknown [id number] 2.16.840.1.917657.3.579.2. 462 Unknown [id number] 2.16.840.1.671569.3.579.2. 462 Social History Date Type Detail Facility Start: 02-28-2018 End: 04-19-2025 Tobacco smoking status NHIS Current every day smoker [facility] Work Phone: Start: 02-28-2018 End: 10-11-2023 Cigarettes smoked current (pack per day) - Reported [facility] Start: 1945 Sex Assigned At Not on file [facility] Work Phone: Start: 07-17-2019 End: 03-12-2025 Alcohol intake Current non-drinker of alcohol (finding) [facility] Start: 06-18-2020 End: 05-01-2025 Tobacco use and exposure Never used [facility] Start: 02-03-2022 End: 02-26-2025 Exposure to SARS-CoV-2 (event) Not sure [facility] Start: 11-01-1965 History of tobacco use Cigarette Smoker [facility] Start: 10-19-2022 End: 10-11-2023 Tobacco use panel [facility] Start: 08-25-2023 End: 05-01-2025 Alcohol intake Lifetime non-drinker (finding) [facility] Work Phone: How hard is it for y ou to pay for the very basics like food, housing, medical care, and heating Not hard at all [facility] In the past 12 month s, was there a time when you were not able to pay the mortgage or rent on time? No [facility] Work Phone: Start: 1945 Sex Assigned At Male [facility] Start: 10-11-2023 Gender identity Identifies as male gender (finding) [facility] Work Phone: Start: 10-11-2023 Sexual orientation Heterosexual (finding) [facility] Work Phone: Start: 08-05-2021 Tobacco smoking status NHIS Unknown if ever smoked [facility] (I/We) worried wheth er (my/our) food would run out before (I/we) got money to buy more. Never true [facility] Start: 02-09-2025 Sex Male (finding) [facility] Start: 05-01-2025 Tobacco smoking status NHIS Ex-smoker [facility] History of tobacco use Current smoker [place] Work Phone: Medical Equipment Procedure Code Equipment Code Equipment Origin al Text Equipment Identifier Dates [id number] Start: 08-12-2015 End: 03-13-2019 USE DIRECTED FOUR TIMES A DAY FOR INSULIN INJECTION [id number] Start: 09-12-2018 E10.9 Use as directed 4 times per day. [id number] Start: 06-10-2017 use as directed 4 times per day for insulin injection. [id number] Start: 06-17-2017 use as directed 4 times per day for insulin injection. [id number] Start: 05-19-2016 End: 06-17-2017 Use as directed 4 times per day. Dx E10.9 Patient with type 1 DM on insulin with hypoglycemia. Needs to check BG QID; takes insulin QID . [id number] Start: 03-13-2019 Use as directed 4x daily DX code E10.65 . [id number] Start: 10-20-2019 Use as directed 4 times per day. Dx E10.9 Patient with type 1 DM on insulin with hypoglycemia. Needs to check BG QID; takes insulin QID . [id number] Start: 03-15-2020 End: 02-18-2021 Use as directed 4x daily DX code E10.65 . [id number] Start: 10-07-2020 End: 10-08-2021 Use as directed 4 times per day. Dx E10.9 Patient with type 1 DM on insulin with hypoglycemia. Needs to check BG QID; takes insulin QID . [id number] Start: 02-18-2021 End: 02-13-2022 Use as directed 4x daily DX code E10.65 . [id number] Start: 10-09-2021 End: 12-31-2022 Use as directed 4 times per day. Dx E10.9 Patient with type 1 DM on insulin with hypoglycemia. Needs to check BG QID; takes insulin QID . [id number] Start: 02-13-2022 End: 02-19-2023 Use as directed 4x daily DX code E10.65 . [id number] Start: 12-31-2022 Use as directed 4 times per day. Dx E10.9 Patient with type 1 DM on insulin with hypoglycemia. Needs to check BG QID; takes insulin QID . [id number] Start: 02-19-2023 End: 03-06-2024 BD Jolynn 2nd Gen Pen Needle 32 gauge x 5/32 needle [id number] Start: 07-01-2023 Use as directed 4 times per day. Dx E10.9 Patient with type 1 DM on insulin with hypoglycemia. Needs to check BG QID; takes insulin QID . [id number] Start: 02-19-2023 Use as directed 4x daily Dx code E10.65 . [id number] Start: 12-01-2023 End: 12-08-2024 TEST BLOOD GLUCO SE FOUR TIMES DAILY E10.65 . [id number] Start: 03-06-2024 End: 04-16-2025 Use as directed 4x daily Dx code E10.65 . [id number] Start: 12-08-2024 Blood Sugar Diagnostic (Contour Next Test Strips) strip Start: 09-12-2024 Blood Sugar Diagnostic (Contour Next Test Strips) strip Start: 09-12-2024 Blood Sugar Diagnostic (Contour Next Test Strips) strip Start: 09-12-2024 TEST BLOOD GLUCO SE FOUR TIMES DAILY E10.65 . [id number] Start: 04-17-2025 Goals Date Patient Goal Desired Activity /State Functional Status Date Assessment Result Facility 04-22-2025 Functional status Ambulates [facility] Work Phone: 04-21-2025 Functional status Well [facility] Work Phone: 04-10-2025 Functional status Chair [facility] Work Phone: Mental Status Date Assessment Result Facility 04-22-2025 Cognitive function Voice/Name [facility] Work Phone: 04-10-2025 Cognitive function Voice/Name [facility] Work Phone: Clinical Notes 02-18-2021 to 05-01-2025 Assessment & Plan Note - CULLEN Guzmán DNP - 05/01/2025 12:11 PM EDTAssessment & Plan Note - CULLEN Guzmán DNP - 05/01/2025 12:11 PM EDT Note Date & Type Note Facility 05-01-2025 Evaluation + Plan note Associated Problem(s): CKD (chronic kidney disease) Has had worsening of his renal function, currently creatinine is at 2.37, baseline in the past was 1.5-1.8, he did have 2 days of dialysis, has had to increase his Lasix to 40 mg twice a day, we will continue to monitor at this time, repeat labs in 2 weeks, will also check CBC as it appears that his blood counts were low while at [facility], may need erythropoietin or iron infusions [facility] Work Phone: 05-01-2025 Miscellaneous Notes Associated Problem(s): CKD (chronic kidney disease) Has had worsening of his renal function, currently creatinine is at 2.37, baseline in the past was 1.5-1.8, he did have 2 days of dialysis, has had to increase his Lasix to 40 mg twice a day, we will continue to monitor at this time, repeat labs in 2 weeks, will also check CBC as it appears that his blood counts were low while at [facility], may need erythropoietin or iron infusions Associated Problem(s): Type 1 diabetes mellitus with diabetic neuropathy Has been having some frequent hypoglycemia, is working with his insulin at this time, he does not have a continuous glucose monitor, encouraged him to follow with endocrinology to see if his evening dose of insulins can be adjusted Associated Problem(s): Essential hypertension Blood pressure has been well-controlled at home, is normally in the 120s and 130s, infrequently in the 140s systolically, will continue with lisinopril 5 mg and hydralazine 50 mg twice a day continue to hold amlodipine documented in this encounter [facility] Work Phone: 05-01-2025 Evaluation + Plan note Associated Problem(s): Type 1 diabetes mellitus with diabetic neuropathy Has been having some frequent hypoglycemia, is working with his insulin at this time, he does not have a continuous glucose monitor, encouraged him to follow with endocrinology to see if his evening dose of insulins can be adjusted [facility] Work Phone: 05-01-2025 Evaluation + Plan note Associated Problem(s): Essential hypertension Blood pressure has been well-controlled at home, is normally in the 120s and 130s, infrequently in the 140s systolically, will continue with lisinopril 5 mg and hydralazine 50 mg twice a day continue to hold amlodipine [facility] Work Phone: 05-01-2025 History of Presen t illness Narrative Subjective Patient ID: Enoc Armando is a 79 y.o. male who presents for Follow-up ([facility] ). Patient being seen in follow-up for chronic kidney disease stage III with history of diabetes and hypertension along with systolic heart failure with an ejection fraction of 35% Labs reviewed Laboratory work from April 10 shows H&H of 8.6 and 26.0 Glucose 287 Renal function with a BUN of 79 and creatinine of 3.48 Calcium 8.5 He was hospitalized at [facility], it appears that his creatinine peaked at 4.68 He has had several hospitalizations over the last month, he was in the hospital the first part of April for about a week and then return to the hospital about 4 days after that, he was initially discharged on the , during that hospitalization he did have 2 days of dialysis which was then discontinued I am unsure exactly what happened during this time however it does appear that he was admitted with some heart failure, he has had some increasing shortness of breath and some fluid volume overload He continues to have some shortness of breath mainly with exertion and complains of a lot of weakness He is voiding without difficulties He denies any lightheadedness or dizziness Labs repeated on April 27 Glucose was 40 BUN 82 with creatinine of 2.37, GFR was 27 Sodium 139, potassium 4.0, chloride 99, bicarb 38 Calcium 8.2 Review of Systems Constitutional: Positive for fatigue. HENT: Negative. Eyes: Negative. Respiratory: Positive for shortness of breath. Cardiovascular: Positive for leg swelling. Gastrointestinal: Negative. Endocrine: Negative. Genitourinary: Negative. Musculoskeletal: Negative. Skin: Negative. Allergic/Immunologic: Negative. Neurological: Negative. Hematological: Negative. Psychiatric/Behavioral: Negative. Objective Physical Exam Constitutional: Appearance: Normal appearance. HENT: Head: Normocephalic and atraumatic. Mouth/Throat: Mouth: Mucous membranes are moist. Eyes: Extraocular Movements: Extraocular movements intact. Cardiovascular: Rate and Rhythm: Normal rate and regular rhythm. Heart sounds: Normal heart sounds. Pulmonary: Effort: Pulmonary effort is normal. Breath sounds: Normal breath sounds. Abdominal: General: Bowel sounds are normal. Palpations: Abdomen is soft. Musculoskeletal: General: Normal range of motion. Right lower leg: Edema (Pitting edema in the ankles, slightly in the lower calves) present. Left lower leg: Edema (Pitting edema in the ankles, slightly in the lower calves) present. Skin: General: Skin is warm and dry. Neurological: Mental Status: He is alert. Psychiatric: Behavior: Behavior normal. Thought Content: Thought content normal. Assessment/Plan Problem List Items Addressed This Visit ICD-10-CM Essential hypertension I10 Blood pressure has been well-controlled at home, is normally in the 120s and 130s, infrequently in the 140s systolically, will continue with lisinopril 5 mg and hydralazine 50 mg twice a day continue to hold amlodipine Type 1 diabetes mellitus with diabetic neuropathy E10.40 Has been having some frequent hypoglycemia, is working with his insulin at this time, he does not have a continuous glucose monitor, encouraged him to follow with endocrinology to see if his evening dose of insulins can be adjusted CKD (chronic kidney disease) - Primary N18.9 Has had worsening of his renal function, currently creatinine is at 2.37, baseline in the past was 1.5-1.8, he did have 2 days of dialysis, has had to increase his Lasix to 40 mg twice a day, we will continue to monitor at this time, repeat labs in 2 weeks, will also check CBC as it appears that his blood counts were low while at [facility], may need erythropoietin or iron infusions Relevant Medications compress.stocking,knee,reg,med misc Other Relevant Orders Basic metabolic panel Basic metabolic panel Follow Up In Nephrology CBC Other Visit Diagnoses Codes Edema, unspecified type R60.9 Relevant Medications compress.stocking,knee,reg,med misc Other Relevant Orders Basic metabolic panel Follow Up In Nephrology Anemia due to stage 4 chronic kidney disease N18.4, D63.1 Relevant Orders CBC Chronic kidney disease stage III/IV with increase in baseline creatinine, will monitor at this time to find new baseline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 prostatic hyperplasia) Chronic low back pain with sciatica Diabetes mellitus, type 2 CKD (chronic kidney disease), stage III Pneumonia COVID Wears glasses Wears dentures Home Medications ?Medication ?Instructions ?Recorded ?Last Taken ?Type amlodipine 10 mg tablet (Norvasc) 10 mg PO 1200 08/12/21 History insulin glargine 100 unit/mL (3 15 unit subcut QPM 03/21 Unknown History mL) subcutaneous pen (Lantus Solostar U-100 Insulin) insulin lispro 100 unit/mL 0 unit subcut TID SLIDING S JENNIFER 08/05/21 Unknown History subcutaneous pen tamsulosin 0.4 mg capsule (Flomax) 0.4 mg PO DAILY [facility] 08/05/21 Unknown History ezetimibe 10 mg tablet 10 mg PO DAILY 04/06/24 Unkn own History metoprolol succinate 25 mg 25 mg PO DAILY 04/06/24 Unk nown History tablet,extended release 24 hr blood sugar diagnostic (Contour 09/12/24 Unknown Hist ory Next Test Strips) hydralazine 50 mg tablet 50 mg PO Q8H 04/03/25 Unknow n History pantoprazole 40 mg tablet,delayed 40 mg PO DAILY #30 t abs 04/10/25 Unknown Rx release spironolactone 25 mg tablet 25 mg PO DAILY 04/19/25 Un known History Allergy/AdvReac Type Severity Reaction Status Date / Time spironolactone AdvReac Intermediate Hyperkalemi Verified 04/19/25 03:10 a Corticosteroids AdvReac Other Verified 04/03/25 00:16 (Glucocorticoids) (steroids) Qvxijtm-KQF-OlB Reductase AdvReac Other Verified 04/03/25 00:16 Inhibitor (Zywjfam-Neo-Ski Reductase Inhibitor) Family History Mother COPD (chronic obstructive pulmonary disease) Father CAD (coronary artery disease) Heart disease Surgical History Hx of cystoscopy Hx of colonoscopy Hx of left cataract extraction Hx of right cataract extraction Social History household members: spouse Smoking Status: Current every day smoker tobacco type: cigarettes alcohol intake: never substance use type: does not use ROS Constitutional Constitutional: Reports as per HPI Eyes Eyes: Reports systems reviewed and no addt'l complaints, except as documented ENT HEENT: Reports systems reviewed and no addt'l complaints, except as documented Cardiovascular Cardiovascular: Reports as per HPI Respiratory/Chest Respiratory/Chest: Reports as per HPI Gastrointestinal Gastrointestinal: Reports systems reviewed and no addt'l complaints, except as documented Genitourinary Genitourinary: Reports as per HPI Musculoskeletal Musculoskeletal: Reports as per HPI Integumentary Integumentary: Reports systems reviewed and no addt'l complaints, except as documented Neurologic Neurologic: Reports systems reviewed and no addt'l complaints, except as documented Psychiatric Psychiatric: Reports systems reviewed and no addt'l complaints, except as documented Endocrine Endocrinology: Reports systems reviewed and no addt'l complaints, except as documented Hematologic/Lymphatic Hematologic/Lymphatic: Reports systems reviewed and no addt'l complaints, exceptas documented Allergic/Immunologic Allergic/Immunologic: Reports systems reviewed and no addt'l complaints, except as documented Physical Exam Narrative Patient is resting comfortably in the recliner. Const alert and oriented x3 HEENT normocephalic Eyes EOMs intact bilaterally Neck Neck Narrative: Noted JVD at 45 degrees in the recliner. The patient has bilateral carotid bruits and bruits in the suprasternal notch. Chest inspection of chest normal Resp normal respiratory effort Auscultation: crackles left base and diminished lung sounds left lower Cardio Rate: regular rate Rhythm: regular rhythm Heart Sounds: S1 normal, S2 normal and murmur systolic I/ soft; Negative for click or gallop GI soft to palpation Extremity General Extremity: edema bilateral lower extremity Details: mild Neuro Neuro Narrative: Alert and oriented x 3 Psych mental status grossly normal Risk Stratification Risk Stratification Applicable: No Charges/Coding Visit Charges Inpatient E&M: 37660 Init Hosp L3 Objective Data Vital Signs: Vital Signs Temp Pulse Resp BP Pulse Ox O2 Del Method O2 Flow Rate 98.0 F 85 18 136/69 H 98 Nasal Cannula 4 04/20/25 08:15 04/20/25 08:30 04/20/25 08:30 04/20/25 08:15 04/20/25 09:13 04/20/25 08:30 04/20/25 09:13 FiO2 45 04/19/25 09:21 Oxygen Flow Rate (L/min) 4 Oxygen Delivery Method Nasal Cannula Weight: 146 lb 8 oz Body Mass Index (BMI) 23.6 Intake & Output: Intake and Output for Last 24 Hours 04/18/25 04/19/25 04/20/25 23:59 23:59 23:59 Intake Total 130 / 130 Output Total 450 / 950 700 / 700 Balance -320 / -820 -700 / -700 Lab / Micro Data Attestation: I reviewed the patient's lab results. 04/20/25 06:16 04/20/25 06:16 Labs: Laboratory Results - last 24 hr 04/19/25 13:50: Urine Color Yellow, Urine Clarity Clear, Urine pH 6.0, Ur Specific [place] 1.015, Urine Protein 30 H, Urine Glucose (UA) 250 H, Urine Ketones Negative, Urine Occult Blood Negative, Urine Nitrite Negative, Urine Bilirubin Negative, Urine Urobilinogen Normal, Ur Leukocyte Esterase Negative, Urine RBC 0 SEEN, Urine WBC 0 SEEN, Ur Squamous Epith Cells 0 SEEN, Urine Bacteria 0 SEEN, Urine Mucus 0 SEEN 04/19/25 17:19: POC Glucose 374 H 04/19/25 23:07: POC Glucose 393 H 04/20/25 06:05: POC Glucose 362 H 04/20/25 06:16: WBC 14.9 H, RBC 2.64 L, Hgb 7.9 L, Hct 24.6 L, MCV 93.2, MCH 29.9, MCHC 32.1, RDW Std Deviation 46.0 H, RDW Coeff of Humaira 13.6, Plt Count 216,MPV 11.6, Immature Gran % (Auto) 0.800, Neut % (Auto) 93.9 H, Lymph % (Auto) 3.5L, Sawyer % (Auto) 1.7, Eos % (Auto) 0.0, Baso % (Auto) 0.1, Absolute Neuts (auto)14.0 H, Absolute Lymphs (auto) 0.52 L, Nucleated RBC % 0, Sodium 136, Potassium 4.7, Chloride 99, Carbon Dioxide 22.7, Anion Gap 15, BUN 72 H, Creatinine 2.95 H, Estim Creat Clear Calc 17.72 L, Est GFR (MDRD) Non-Af 21 L, BUN/Creatinine Ratio 24.4 H, Glucose 375 H, Calcium 9.1, Total Bilirubin 0.35, AST 21, ALT 27, Alkaline Phosphatase 78, Total Protein 6.2, Albumin 3.7, Globulin 2.5, Albumin/Globulin Ratio 1.5 04/20/25 11:43: POC Glucose 391 H Micro: Microbiology 04/19/25 00:25 Mucosa - Nose SARS-CoV-2, Influenza & RSV (PCR) - Final Rhythm Strip Rhythm Strip: Sinus Rhythm Rate: 87 Ectopy: PVC(s) Cardiology Labs/Tests 04/19/25 13:50: Urine Color Yellow, Urine Clarity Clear, Urine pH 6.0, Ur Specific [place] 1.015, Urine Protein 30 H, Urine Glucose (UA) 250 H, Urine Ketones Negative, Urine Occult Blood Negative, Urine Nitrite Negative, Urine Bilirubin Negative, Urine Urobilinogen Normal, Ur Leukocyte Esterase Negative, Urine RBC 0 SEEN, Urine WBC 0 SEEN 04/20/25 06:16: WBC 14.9 H, RBC 2.64 L, Hgb 7.9 L, Hct 24.6 L, MCV 93.2, MCH 29.9, MCHC 32.1, Plt Count 216, MPV 11.6, Immature Gran % (Auto) 0.800, Neut % (Auto) 93.9 H, Lymph % (Auto) 3.5 L, Sawyer % (Auto) 1.7, Eos % (Auto) 0.0, Baso %(Auto) 0.1, Absolute Neuts (auto) 14.0 H, Nucleated RBC % 0, Sodium 136, Potassium 4.7, Chloride 99, Carbon Dioxide 22.7, Anion Gap 15, BUN 72 H, Creatinine 2.95 H, Est GFR (MDRD) Non-Af 21 L, BUN/Creatinine Ratio 24.4 H, Glucose 375 H, Calcium 9.1, Total Bilirubin 0.35 Rhythm: EKG: ECHO: Stress Test: Cardiac Cath: PCI: CT Surgery: Holter monitor: EPS: PPM: CXR: Chest CT Scan: Radiography Diagnostic Testing: Radiology Impression Venous Doppler Study 04/19/25 04:03 Interpretation Summary Deep veins of the lower extremities are bilaterally patent and compressible segmentally. There is no evidence of deep vein thrombosis on either side. Valvular competence appears intact within the proximal deep venous systems bilaterally. The great saphenous veins appear bilaterally patent and compressible segmentally. Ordering Physician: Nancy Rizzo Referring Physician: Ryley Jeter Performed By: Jennifer Ambriz RDCS, RVT 04/20/25 1252 <Electronically signed by Breezy Campbell MD> Cosigner Signature (if applicable): CC: Dr. Ryley Jeter MD~ Signed [facility] Work Phone: 1(560) 223-812206-20-2025 Progress note Author Ger [facility]ast. [facility] Note Date/Time April 20, 2025 11:3 9am [facility] Medical Records Department [address] [place] [address] Progress Note - Hospitalist 04/20/25 1128 MR#: [id number] Acct: [id number] Name: ENOC ARMANDO Rep #:[id number] : 1945 79 From: Ger Roberts DO PCP: Dr. 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 I talked to the patient's daughter extensively who was in the room at the time of my exam. Patient's echocardiogram that was done recently shows an EF of 40%, his last echocardiogram here was done October of last year and it showed an EF of 60%. There is also a heart catheterization scanned in from an outside hospital in October 2024 which showed that the patient did have occlusive coronary disease but they elected to treat it medically. Patient's daughter stated the reason why they did not stent the patient was that they did not want to subject him to dye which would possibly affect his kidneys. I talked with Dr. Campbell (cardiology) today about his care and placed a formal consult for him to see thepatient, he requested that I take the patient off amlodipine, placed the patienton Imdur 30 mg daily and stop the patient's metoprolol and placed him on carvedilol 25 mg twice daily. I went over this with the patient's daughter and the patient and told them that cardiology would be seeing them today. Nephrology is due to see the patient today, I talked with the nurse practitionerthat works with nephrology about the patient's care and verified that they wanted the patient's Lasix dose to be 40 mg IV twice a day. Patient's creatinine today is slightly elevated from yesterday's creatinine. Objective Data Objective Data Vital Signs: Vital Signs Temp Pulse Resp BP Pulse Ox O2 Del Method O2 Flow Rate 98.0 F 85 18 136/69 H 98 Nasal Cannula 4 04/20/25 08:15 04/20/25 08:30 04/20/25 08:30 04/20/25 08:15 04/20/25 09:13 04/20/25 08:30 04/20/25 09:13 FiO2 45 04/19/25 09:21 Oxygen Flow Rate (L/min) 4 Oxygen Delivery Method Nasal Cannula Weight: 66.451 kg Body Mass Index (BMI) 23.6 Intake & Output: Intake and Output for Last 24 Hours 04/18/25 04/19/25 04/20/25 23:59 23:59 23:59 Intake Total 130 / 130 Output Total 450 / 950 700 / 700 Balance -320 / -820 -700 / -700 Lab / Micro Data 04/20/25 06:16 04/20/25 06:16 Labs: Laboratory Results - last 24 hr 04/19/25 11:46: POC Glucose 376 H 04/19/25 13:50: Urine Color Yellow, Urine Clarity Clear, Urine pH 6.0, Ur Specific [place] 1.015, Urine Protein 30 H, Urine Glucose (UA) 250 H, Urine Ketones Negative, Urine Occult Blood Negative, Urine Nitrite Negative, Urine Bilirubin Negative, Urine Urobilinogen Normal, Ur Leukocyte Esterase Negative, Urine RBC 0 SEEN, Urine WBC 0 SEEN, Ur Squamous Epith Cells 0 SEEN, Urine Bacteria 0 SEEN, Urine Mucus 0 SEEN 04/19/25 17:19: POC Glucose 374 H 04/19/25 23:07: POC Glucose 393 H 04/20/25 06:05: POC Glucose 362 H 04/20/25 06:16: WBC 14.9 H, RBC 2.64 L, Hgb 7.9 L, Hct 24.6 L, MCV 93.2, MCH 29.9, MCHC 32.1, RDW Std Deviation 46.0 H, RDW Coeff of [place]air[place] 13.6, Plt Count 216,MPV 11.6, Immature Gran % (Auto) 0.800, Neut % (Auto) 93.9 H, Lymph % (Auto) 3.5L, Sawyer % (Auto) 1.7, Eos % (Auto) 0.0, Baso % (Auto) 0.1, Absolute Neuts (auto)14.0 H, Absolute Lymphs (auto) 0.52 L, Nucleated RBC % 0, Sodium 136, Potassium 4.7, Chloride 99, Carbon Dioxide 22.7, Anion Gap 15, BUN 72 H, Creatinine 2.95 H, Estim Creat Clear Calc 17.72 L, Est GFR (MDRD) Non-Af 21 L, BUN/Creatinine Ratio 24.4 H, Glucose 375 H, Calcium 9.1, Total Bilirubin 0.35, AST 21, ALT 27, Alkaline Phosphatase 78, Total Protein 6.2, Albumin 3.7, Globulin 2.5, Albumin/Globulin Ratio 1.5 Micro: Microbiology 04/19/25 00:25 Mucosa - Nose SARS-CoV-2, Influenza & RSV (PCR) - Final Radiography Diagnostic Testing: Radiology Impression Lung Scan-VQ NM 04/19/25 03:18 IMPRESSION: Low probability scan for pulmonary embolism. Findings suggestive of airway trapping/asthma. Reading Location: [facility] Venous Doppler Study 04/19/25 04:03 Interpretation Summary Deep veins of the lower extremities are bilaterally patent and compressible segmentally. There is no evidence of deep vein thrombosis on either side. Valvular competence appears intact within the proximal deep venous systems bilaterally. The great saphenous veins appear bilaterally patent and compressible segmentally. Ordering Physician: Nancy Rizzo Referring Physician: Ryley Jeter Performed By: Jennifer Ambriz, REDD, RVT Physical Exam Const alert, oriented x3 and no apparent distress Constitutional Narrative: Patient appears stated age General Appearance: cooperative, well kempt and well developed Orientation / Consciousness: awake, oriented to person, oriented to place and oriented to time HEENT normocephalic, head/scalp atraumatic and moist oral mucous membranes Eyes PERRL, EOMs intact bilaterally and conjunctivae normal Neck supple, no JVD, thyroid normal and no carotid bruits General: trachea midline Resp normal respiratory effort, no retractions and no use of accessory muscles Resp Narrative: Breath sounds are diminished bilaterally, there is some inspiratory rales at theleft base noted Auscultation: Negative for rales, rhonchi or wheezes Cardio regular rate, regular rhythm, S1 normal heart sound, S2 normal heart sound, no murmurs, no rub and no gallops GI normal to inspection, nondistended, normoactive bowel sounds, soft to palpation,non-tender and non-distended Extremity Extremity Narrative: There was +1 mm pitting edema noted bilaterally over the lower extremities Skin no rashes or lesions noted General Skin Exam: no breakdown Neuro oriented x3, CN's II-XII intact bilaterally, moves all extremities, no focal motor deficits and no sensory deficits noted Sensorium / Orientation: awake and alert Speech: speech normal Psych affect normal Assessment & Plan Assessment/Plan (1) MADONNA (acute kidney injury): PLAN: Plan 1. Acute exacerbation of chronic systolic congestive heart failure-patient willremain on IV furosemide at this time, cardiology will see the patient in consultation and medications changes were made as outlined previously. #2 acute kidney injury on a backdrop of stage IV chronic kidney disease- nephrology will see the patient today, complicates care, management, recovery, and prognosis #3 chronic hypoxic respiratory failure-secondary to chronic systolic heart failure and suspected COPD-patient is on 2 L continuous oxygen at home, his pulse ox will be monitored here #4 probable chronic obstructive pulmonary disease-according to the patient's daughter, patient has never had pulmonary function tests performed, he will needfollow-up as an outpatient #5 type 2 diabetes-patient's blood sugars will be monitored, sliding scale insulin will be administered as indicated #6 BPH-patient is on Flomax Total clinical time spent by myself addressing the patient's medical issues, reviewing all of his data, and collaborating with the patient's care team: 50 minutes Charges/Coding Visit Charges Inpatient E&M: 90532 Subs Hosp L3 04/20/25 1139 <Electronically signed by Ger Roberts DO> Cosigner Signature (if applicable): CC: ~ Signed [facility] Work Phone: [phone] 213-998506-20-2025 Consult note Author Bipin Gonzalez [facility] Note Date/Time April 20, 2025 10:4 2am [facility] Medical Records Department [address] [place] [address] Consultation - Nephrology 04/19/25 1028 MR#: [id number] Acct: [id number] Name: ENOC ARMANDO Rep #:[id number] : 1945 79 From: Bipin arreola [employer] PCP: Dr. Ryley Jeter MD Status:ADM IN Location: [place] [address] Assessment & Plan Assessment/Plan (1) Hyperkalemia: (2) MADONNA (acute kidney injury): (3) Acute hypoxic respiratory failure: (4) CKD (chronic kidney disease) stage 3, GFR 30-59 ml/min: PLAN: Plan MADONNA superimposed on CKD stage III with baseline creatinine ranging around 1.8 mg/dL. Patient is known to our group from last hospitalization, he developed hypervolemic, oliguric acute kidney injury due to contrast nephropathy versus ATN. Patient became oliguric with worsening kidney function and was started on hemodialysis 04/06 (serum creatinine peak 4.77) and again 04/07. Fortunately for patient renal function improved, volume status improved with fluid removal with dialysis and patient able to come off BiPAP, urine output picked up during hospitalization and did not need dialysis arranged at hospital discharge, temporary HD catheter was removed last admission. Last admission renal ultrasound no hydronephrosis. Patient's creatinine 3.48 at time of hospital discharge on April 10. Yesterday serum creatinine 2.73, this morning his creatinine is 2.79. Potassium also improved with hyperkalemia protocol. Aldactone stopped. Patient is currently n.p.o., when diet resumes can add low potassium diet restrictions. Patient is on Lasix 40 mg IV twice daily. Will continue current Lasix order. No acute indication for renal placement therapy at this time. Patient is nonoliguric, urine output amount not documented but canister is little over custodial full with urine. Will check bladder scan. Labsordered for morning. Further orders forthcoming as hospitalization evolves, thank you for allowing us to participate in the care of Mr. Armando. Assessmentand plan reviewed with Dr. Thompson. HPI Consult Data Date of Consult: 04/19/25 HPI Narrative HPI Narrative: ENOC ARMANDO, is a 79 M with past medical history significant for hypertension, CKD stage III with baseline creatinine around 1.8 mg/dL followed by Dr. Juanito Otoole, diabetes mellitus, COPD, history of dialysis requiring acute kidney injury who presented emergency room with complaints of shortness of breath. Patient admitted for acute exacerbation of combined systolic and diastolic heartfailure and COPD exacerbation. Initially patient was requiring Airvo, he is nowon O2 per nasal cannula 6 L. Nephrology consulted in view of history of dialysis requiring MADONNA, elevated creatinine above baseline. Patient reports he has been doing well since hospital discharge but last evening developed worsening shortness of breath and noted worsening lower extremity edema. Patient reports he took Lasix with no improvement in breathing therefore came toER. Creatinine 2.7 and potassium 5.9 yesterday. This morning creatinine 2.79, potassium improved to 4.9. Patient denies any recent nausea, vomiting or diarrhea. Patient does report that he had Osborne in place at time of hospital discharge and recently had that removed few days ago. Patient states he has hadno difficulty with urination at home, no dysuria or hematuria. [facility] Medical History Non-STEMI (non-ST elevated myocardial infarction) Bradycardia MADONNA (acute kidney injury) Anemia LV dysfunction Chronic anemia Tobacco use COPD (chronic obstructive pulmonary disease) HLD (hyperlipidemia) HTN (hypertension) BPH (benign prostatic hyperplasia) Chronic low back pain with sciatica Diabetes mellitus, type 2 CKD (chronic kidney disease), stage III Pneumonia COVID Wears glasses Wears dentures Home Medications ?Medication ?Instructions ?Recorded ?Last Taken ?Type amlodipine 10 mg tablet (Norvasc) 10 mg PO 1200 08/12/21 History insulin glargine 100 unit/mL (3 15 unit subcut QPM 03/21 Unknown History mL) subcutaneous pen (Lantus Solostar U-100 Insulin) insulin lispro 100 unit/mL 0 unit subcut TID SLIDING S JENNIFER 08/05/21 Unknown History subcutaneous pen tamsulosin 0.4 mg capsule (Flomax) 0.4 mg PO DAILY [facility] 08/05/21 Unknown History ezetimibe 10 mg tablet 10 mg PO DAILY 04/06/24 Unkn own History metoprolol succinate 25 mg 25 mg PO DAILY 04/06/24 Unk nown History tablet,extended release 24 hr blood sugar diagnostic (Contour 09/12/24 Unknown Hist ory Next Test Strips) hydralazine 50 mg tablet 50 mg PO Q8H 04/03/25 Unknow n History pantoprazole 40 mg tablet,delayed 40 mg PO DAILY #30 t abs 04/10/25 Unknown Rx release spironolactone 25 mg tablet 25 mg PO DAILY 04/19/25 Un known History Allergy/AdvReac Type Severity Reaction Status Date / Time spironolactone AdvReac Intermediate Hyperkalemi Verified 04/19/25 03:10 a Corticosteroids AdvReac Other Verified 04/03/25 00:16 (Glucocorticoids) (steroids) Gqlcxzc-DNO-NuH Reductase AdvReac Other Verified 04/03/25 00:16 Inhibitor (Rnnsxel-Pot-Kin Reductase Inhibitor) Family History Mother COPD (chronic [...] 3, no apparent distress S1, S2, RRR Lungs sound clear anteriorly, diminished breath sounds posterior bases. No rales or rhonchi noted. On O2 6 L per nasal cannula Abdomen soft, rounded, nontender, nondistended Trace edema bilateral lower legs and ankles External Osborne in place with clear yellow urine in canister Lab / Micro Data 04/19/25 04:12 04/19/25 04:12 Labs: Laboratory Results - last 24 hr 04/19/25 00:07: WBC 14.0 H, RBC 2.93 L, Hgb 8.8 L, Hct 27.5 L, MCV 93.9, MCH 30.0, MCHC 32.0, RDW Std Deviation 46.1 H, RDW Coeff of Humaira 13.4, Plt Count 289,MPV 11.4, Immature Gran % (Auto) 0.500, Neut % (Auto) 82.3 H, Lymph % (Auto) 10.0 L, Sawyer % (Auto) 5.7, Eos % (Auto) 1.0, Baso % (Auto) 0.5, Absolute Neuts (auto) 11.5 H, Absolute Lymphs (auto) 1.40, Nucleated RBC % 0, D-Dimer Quant (PE/DVT) 2.17 H*, Sodium 136, Potassium 5.9 H, Chloride 100, Carbon Dioxide 20.9L, Anion Gap 15, BUN 65 H, Creatinine 2.73 H, Estim Creat Clear Calc 19.84 L, Est GFR (MDRD) Non-Af 23 L, BUN/Creatinine Ratio 23.8 H, Glucose 406 H, Calcium 8.6, Magnesium 2.3 H, [place] [address] H, Procalcitonin 0.10 04/19/25 02:54: POC Glucose 437 H 04/19/25 04:12: WBC 13.5 H, RBC 2.52 L, Hgb 7.5 L, Hct 23.7 L, MCV 94.0, MCH 29.8, MCHC 31.6 L, RDW Std Deviation 46.2 H, RDW Coeff of Humaira 13.4, Plt Count 218, MPV 11.3, Immature Gran % (Auto) 0.600, Neut % (Auto) 94.3 H, Lymph % (Auto) 2.4 L, Sawyer % (Auto) 2.4, Eos % (Auto) 0.1, Baso % (Auto) 0.2, Absolute Neuts (auto) 12.7 H, Absolute Lymphs (auto) 0.33 L, Nucleated RBC % 0, Sodium 137, Potassium 5.2 H, Chloride 101, Carbon Dioxide 17.8 L, Anion Gap 18 H, BUN 69 H, Creatinine 2.95 H, Estim Creat Clear Calc 17.72 L, Est GFR (MDRD) Non-Af 21 L, BUN/Creatinine Ratio 23.4 H, Glucose 447 H, Hemoglobin A1c 7.1 H, Lactic Acid 4.8 H*, Calcium 9.3, Phosphorus 4.0, Total Bilirubin 0.31, AST 26, ALT 30, Alkaline Phosphatase 76, Troponin T High Sens 394 H* D, [place] [address] H, Total Protein 5.8 L, Albumin 3.3 L, Globulin 2.5, Albumin/Globulin Ratio 1.3, TSH1.730 04/19/25 04:56: POC Glucose 403 H 04/19/25 06:15: Troponin T Hi Sens 2 Hr 385 H*, Troponin T Hi Sens 4Hr Cancelled 04/19/25 06:45: Blood Type A POSITIVE, Antibody Screen NEGATIVE Micro: Microbiology 04/19/25 00:25 Mucosa - Nose SARS-CoV-2, Influenza & RSV (PCR) - Final ABG Data ABG results: ABG 04/19/25 04/19/25 03:46 07:12 Specimen Type ART ART Sample Site L Radial L Radial pH 7.45 7.44 Bicarbonate Actual 21.6 L 22.4 Total CO2 23 23 Base Excess -2 -2 O2 Saturation 98 98 O2 % 50.0 ABG pCO2 30.8 L 33.2 L ABG pO2 103 H 92 Fili Test Positive N/A O2 Delivery Device HFNC AIRVO Vent Mode Not entered Not entered Clinical Comments AIRVO 50L 50% Imaging Radiology Impression Chest X-Ray 04/19/25 01:00 IMPRESSION: Increased mild bilateral pleural effusions. Increased passive atelectatic airspace disease of the lower lobes. Increased pulmonary venous congestion and interstitial edema. Enlarged cardiac silhouette. Reading Location: [place] [address] 04/19/25 1043 <Electronically signed by Bipin JEFFERS> Cosigner Signature (if applicable): 04/20/25 1042 <Electronically signed by Denisha Thompson MD> CC: Dr. Ryley Jeter MD~ Signed [facility] Work Phone: 1(228) 232-603006-20-2025 Progress note Author Denisha Thompson [facility] Note Date/Time April 20, 2025 10:4 0am [facility] Medical Records Department [address] [place] [id number] Progress Note - Nephrology 04/20/25 1039 MR#: [id number] Acct: [id number] Name: ENOC ARMANDO Rep #:[id number] : 1945 79 From: Denisha tirado MD PCP: Dr. Ryley Jeter MD Status:ADM IN Location: [facility] AEI603- Subjective Subjective Still appears somewhat dyspneic. Objective Data Objective Data Vital Signs: Vital Signs Temp Pulse Resp BP Pulse Ox O2 Del Method O2 Flow Rate 98.0 F 85 18 136/69 H 98 Nasal Cannula 4 04/20/25 08:15 04/20/25 08:30 04/20/25 08:30 04/20/25 08:15 04/20/25 09:13 04/20/25 08:30 04/20/25 09:13 FiO2 45 04/19/25 09:21 Oxygen Flow Rate (L/min) 4 Oxygen Delivery Method Nasal Cannula Weight: 66.451 kg Body Mass Index (BMI) 23.6 Intake & Output: Intake and Output for Last 24 Hours 04/18/25 04/19/25 04/20/25 23:59 23:59 23:59 Intake Total 130 / 130 Output Total 450 / 950 700 / 700 Balance -320 / -820 -700 / -700 Lab / Micro Data 04/20/25 06:16 04/20/25 06:16 Labs: Laboratory Results - last 24 hr 04/19/25 09:30: Troponin T Hi Sens 4Hr 350 H* 04/19/25 11:46: POC Glucose 376 H 04/19/25 13:50: Urine Color Yellow, Urine Clarity Clear, Urine pH 6.0, Ur Specific [place] 1.015, Urine Protein 30 H, Urine Glucose (UA) 250 H, Urine Ketones Negative, Urine Occult Blood Negative, Urine Nitrite Negative, Urine Bilirubin Negative, Urine Urobilinogen Normal, Ur Leukocyte Esterase Negative, Urine RBC 0 SEEN, Urine WBC 0 SEEN, Ur Squamous Epith Cells 0 SEEN, Urine Bacteria 0 SEEN, Urine Mucus 0 SEEN 04/19/25 17:19: POC Glucose 374 H 04/19/25 23:07: POC Glucose 393 H 04/20/25 06:05: POC Glucose 362 H 04/20/25 06:16: WBC 14.9 H, RBC 2.64 L, Hgb 7.9 L, Hct 24.6 L, MCV 93.2, MCH 29.9, MCHC 32.1, RDW Std Deviation 46.0 H, RDW Coeff of Humaira 13.6, Plt Count 216,MPV 11.6, Immature Gran % (Auto) 0.800, Neut % (Auto) 93.9 H, Lymph % (Auto) 3.5L, Sawyer % (Auto) 1.7, Eos % (Auto) 0.0, Baso % (Auto) 0.1, Absolute Neuts (auto)14.0 H, Absolute Lymphs (auto) 0.52 L, Nucleated RBC % 0, Sodium 136, Potassium 4.7, Chloride 99, Carbon Dioxide 22.7, Anion Gap 15, BUN 72 H, Creatinine 2.95 H, Estim Creat Clear Calc 17.72 L, Est GFR (MDRD) Non-Af 21 L, BUN/Creatinine Ratio 24.4 H, Glucose 375 H, Calcium 9.1, Total Bilirubin 0.35, AST 21, ALT 27, Alkaline Phosphatase 78, Total Protein 6.2, Albumin 3.7, Globulin 2.5, Albumin/Globulin Ratio 1.5 Micro: Microbiology 04/19/25 00:25 Mucosa - Nose SARS-CoV-2, Influenza & RSV (PCR) - Final Radiography Diagnostic Testing: Radiology Impression Lung Scan-VQ NM 04/19/25 03:18 IMPRESSION: Low probability scan for pulmonary embolism. Findings suggestive of airway trapping/asthma. Reading Location: [facility]-1 Venous Doppler Study 04/19/25 04:03 Interpretation Summary Deep veins of the lower extremities are bilaterally patent and compressible segmentally. There is no evidence of deep vein thrombosis on either side. Valvular competence appears intact within the proximal deep venous systems bilaterally. The great saphenous veins appear bilaterally patent and compressible segmentally. Ordering Physician: Nancy Rizzo Referring Physician: Ryley Jeter Performed By: Jennifer Ambriz, NATHANCS, RVT Physical Exam Narrative Alert and oriented x 3, no apparent distress S1, S2, RRR Lungs sound clear anteriorly, diminished breath sounds posterior bases. No rales or rhonchi noted. On O2 6 L per nasal cannula Abdomen soft, rounded, nontender, nondistended Trace edema bilateral lower legs and ankles External Osborne in place with clear yellow urine in canister Assessment & Plan Assessment/Plan (1) Hyperkalemia: (2) MADONNA (acute kidney injury): (3) Acute hypoxic respiratory failure: (4) CKD (chronic kidney disease) stage 3, GFR 30-59 ml/min: PLAN: Plan Acute renal failure CKD stage IIIb Transiently required dialysis Baseline creatinine is around 1.8. Last admission presumably MADONNA first from ATN. Recovered from dialysis, urine output improved. Discharged home, came back with worsening shortness of breath. Chest x-ray looks pretty wet. Symptomatically better with IV Lasix. Continue IV Lasix 40 mg twice a day. Addmetolazone for today. Discussed with family at bedside 04/20/25 1040 <Electronically signed by Denisha Thompson MD> Cosigner Signature (if applicable): CC: ~ Signed [facility] Work Phone: 1(457) 303-515806-19-2025 Nuclear medicine Diagnostic study note [facility]06-19-2025 History and physical note Author Nancy Henson [facility] Note Date/Time April 19, 2025 6:44 am [facility] Medical Records Department [address] [place] [address] H&P Exam - Hospitalist 04/19/25 0218 MR#: [id number] Acct: [id number] Name: ENOC ARMANDO Rep #:[id number] : 1945 79 From: Nancy Lee DO PCP: Dr. Ryley Jeter MD Status:ADM IN Location: ICU ICU01-1 [facility] - General General Date of Admission: 04/19/25 Date of Service: 04/19/25 Chief Complaint: SOB and LE Edema. HPI Narrative ENOC ARMANDO, is a 79 M with a past medical history of essential hypertension; on metoprolol, hydralazine and spironolactone, hyperlipidemia; on ezetimibe, DM-2; of unknown control on insulin glargine 15U sq daily plus SSI, CAD; s/p NSTEMI, chronic combined systolic and diastolic CHF; LVEF ~40% plus stage I diastolic dysfunction with RSVP of 41 mmHg on echocardiogram done 04/03/2025, history of tobacco abuse; subsequent COPD, history of COVID-19 (2022), CKD; stage IIIb, chronic macrocytic anemia; with recent blood transfusion ~10 days ago, BPH; history of obstructive uropathy on tamsulosin, GERD; on pantoprazole, OA; with lumbar spondylolisthesis plus sciatica and recent admission here from April 03, 2025 to April 10, 2025 for treatment of acute hypoxic respiratory failuredue to AE COPD with superimposed pneumonia complicated by MADONNA in the setting of CKD; stage IIIb-IV with patient initiated on hemodialysis via tunneled catheter placed during that admission along with [id number] anemia with hemoglobin dropping to 6.9 g/dL requiring blood transfusion who re-presents to [facility] ER complaining of shortness of breath and lower extremity edema. Mr. Armando reports his symptoms began approximately 1 day prior to admission with the abrupt-onset of dyspnea on exertion the progressive shortness of breathat rest. He also admits to ~2-3+ Right greater than Left lower extremity edema with persistent and progressively worsening generalized weakness since his recent previous admission. He denies associated fever, chills, nausea, vomiting, diarrhea, constipation, chest pain, palpitation, heart racing, headache or rash. In the ER he was noted to have an elevated NT pro-BNP II of 14,775 pg/mL present on admission with a corresponding CXR that revealed increased mild bilateral pleural effusions with passive atelectasis airspace disease of the lower lobes and increased pulmonary venous congestion and interstitial edema with enlarged cardiac silhouette consistent with suspected AEof combined chronic systolic and diastolic CHF; LVEF of 40% plus stage I diastolic dysfunction complicated by clinical evidence of AE COPD with Acute Hypoxic Respiratory Failure with patient requiring Airvo compounded by laboratory evidence of Hyperkalemia of 5.9 mmol/L present on admission in the setting of known CKD; stage IV; with eGFR of 23 mL/min with patient recently requiring hemodialysis plus Leukocytosis of 14K present on admission without obvious signs of infection due to suspected acute stress response along with an elevated D-dimer of 2.17 present on admission with CTA of chest unable to be done due to poor renal function plus Hyperglycemia of 406 mg/dL present on admission. He was then admitted to the ICU for ongoing care for stay that is expected to extend beyond 2 midnights. [facility] Medical History Non-STEMI (non-ST elevated myocardial infarction) Bradycardia MADONNA (acute kidney injury) Anemia LV dysfunction Chronic anemia Tobacco use COPD (chronic obstructive pulmonary disease) HLD (hyperlipidemia) HTN (hypertension) BPH (benign prostatic hyperplasia) Chronic low back pain with sciatica Diabetes mellitus, type 2 CKD (chronic kidney disease), stage III Pneumonia COVID Wears glasses Wears dentures Home Medications ?Medication ?Instructions ?Recorded ?Last Taken ?Type amlodipine 10 mg tablet (Norvasc) 10 mg PO 1200 08/12/21 History insulin glargine 100 unit/mL (3 15 unit subcut QPM 03/21 Unknown History mL) subcutaneous pen (Lantus Solostar U-100 Insulin) insulin lispro 100 unit/mL 0 unit subcut TID SLIDING S JENNIFER 08/05/21 Unknown History subcutaneous pen tamsulosin 0.4 mg capsule (Flomax) 0.4 mg PO DAILY [facility] [place] 08/05/21 Unknown History ezetimibe 10 mg tablet 10 mg PO DAILY 04/06/24 Unkn own History metoprolol succinate 25 mg 25 mg PO DAILY 04/06/24 Unk nown History tablet,extended release 24 hr blood sugar diagnostic (Contour 09/12/24 Unknown Hist ory Next Test Strips) hydralazine 50 mg tablet 50 mg PO Q8H 04/03/25 Unknow n History pantoprazole 40 mg tablet,delayed 40 mg PO DAILY #30 t abs 04/10/25 Unknown Rx release spironolactone 25 mg tablet 25 mg PO DAILY 04/19/25 Un known History Allergy/AdvReac Type Severity Reaction Status Date / Time spironolactone AdvReac Intermediate Hyperkalemi Verified 04/19/25 03:10 a Corticosteroids AdvReac Other Verified 04/03/25 00:16 (Glucocorticoids) (steroids) Fdjqvci-NAW-GpA Reductase AdvReac Other Verified 04/03/25 00:16 Inhibitor (Yhshavc-Bzz-Xbz Reductase Inhibitor) Family History Mother COPD (chronic obstructive pulmonary disease) Father CAD (coronary artery disease) Heart disease Surgical History Hx of cystoscopy Hx of colonoscopy Hx of left cataract extraction Hx of right cataract extraction Social History household members: spouse Smoking Status: Current every day smoker tobacco type: cigarettes alcohol intake: never substance use type: does not use ROS ROS Narrative Review of Systems: Constitutional: Patient denies fever or chills. Eyes: Patient denies change in vision or discharge from eyes. ENT: Patient denies runny nose, sore throat or ear pain. Resp: Patient admits to dyspnea on exertion the progressive shortness of breath at rest with occasional wheezing. CV: Patient admits to lower extremity edema but he denies chest pain or palpitations. GI: Patient denies abdominal pain, nausea, vomiting, diarrhea or constipation. : Patient denies dysuria or hematuria. MSK: Patient admits to generalized weakness that is persistent since his previous admission as per HPI. Skin: Patient denies rash, abscess, wounds or jaundice. Psych: Patient denies symptoms uncontrolled depression or anxiety. Neuro: Patient denies headache, paresthesias or focal neurologic deficits. Allergy: Patient denies lip swelling, tongue swelling or urticaria. Hematology: Patient denies easy bleeding or easy bruisability. Endocrinology: Patient denies polyuria, polydipsia, polyphagia or heat/cold intolerance. 14 point ROS otherwise negative save for positives noted above in HPI. Vital Signs Vital Signs Vital Signs: 04/19/25 00:00 04/19/25 00:04 04/19/25 00:17 Temperature 96.8 F L Temperature Source Axillary Pulse Rate 107 H 93 Respiratory Rate 26 H 22 H Respiratory Effort Short of Breath Labored Respiratory Pattern Tachypnea Tachypnea Blood Pressure 173/76 H Blood Pressure Mean 108 Pulse Ox 100 Oxygen Delivery Method Non-Rebreather Oxygen Flow Rate (L/min) 15 Fraction of Inspired Oxygen (FIO2) 04/19/25 00:29 04/19/25 00:30 04/19/25 00:32 Temperature Temperature Source Pulse Rate 93 95 Respiratory Rate 17 21 H Respiratory Effort Respiratory Pattern Blood Pressure 146/51 H Blood Pressure Mean 82 Pulse Ox 94 97 97 Oxygen Delivery Method High Flow Oxygen Flow Rate (L/min) 10 Fraction of Inspired Oxygen (FIO2) 04/19/25 00:33 04/19/25 00:45 04/19/25 00:50 Temperature Temperature Source Pulse Rate 94 91 Respiratory Rate 19 H 18 Respiratory Effort Respiratory Pattern Normal Blood Pressure 146/58 H Blood Pressure Mean 86 Pulse Ox 98 97 Oxygen Delivery Method Oxygen Flow Rate (L/min) Fraction of Inspired Oxygen (FIO2) 50 04/19/25 01:00 04/19/25 01:10 04/19/25 01:15 Temperature 98.3 F Temperature Source Temporal Pulse Rate 92 95 92 Respiratory Rate 14 23 H 16 Respiratory Effort Respiratory Pattern Blood Pressure 140/52 H 140/52 H 141/57 H Blood Pressure Mean 77 81 81 Pulse Ox 98 97 Oxygen Delivery Method Oxygen Flow Rate (L/min) Fraction of Inspired Oxygen (FIO2) 04/19/25 01:30 Temperature Temperature Source Pulse Rate 92 Respiratory Rate 14 Respiratory Effort Respiratory Pattern Blood Pressure 140/56 H Blood Pressure Mean 81 Pulse Ox 94 Oxygen Delivery Method Oxygen Flow Rate (L/min) Fraction of Inspired Oxygen (FIO2) Weight Weight: 156 lb Body Mass Index (BMI) 24.4 Physical Exam Const alert, oriented x3 and average body habitus Constitutional Narrative: Mild distress noted on Airvo. General Appearance: cooperative HEENT normocephalic, head/scalp atraumatic, hearing grossly normal bilaterally and moist oral mucous membranes Eyes PERRL and EOMs intact bilaterally Neck no lymphadenopathy and supple Resp Resp Narrative: Bibasilar rales with decreased breath sounds throughout. Cardio regular rate and regular rhythm GI normal to inspection, nondistended, normoactive bowel sounds, soft to palpation,non-tender and non-distended Extremity Extremity Narrative: ~2-3+ bilateral Right greater than Left lower extremity edema. Skin Skin Narrative: Patient has evidence of rash, abscess, wounds or jaundice. Neuro oriented x3, CN's II-XII intact bilaterally, moves all extremities and no focal motor deficits Sensorium / Orientation: awake, alert, oriented to person, oriented to place andoriented to time Psych affect normal Results Medical Records Data Attestation: I reviewed the patient's medical records Lab / Micro Data Attestation: I reviewed the patient's lab results. 04/19/25 04:12 04/19/25 04:12 Labs: Laboratory Results - last 24 hr 04/19/25 00:07: WBC 14.0 H, RBC 2.93 L, Hgb 8.8 L, Hct 27.5 L, MCV 93.9, MCH 30.0, MCHC 32.0, RDW Std Deviation 46.1 H, RDW Coeff of Humaira 13.4, Plt Count 289,MPV 11.4, Immature Gran % (Auto) 0.500, Neut % (Auto) 82.3 H, Lymph % (Auto) 10.0 L, Sawyer % (Auto) 5.7, Eos % (Auto) 1.0, Baso % (Auto) 0.5, Absolute Neuts (auto) 11.5 H, Absolute Lymphs (auto) 1.40, Nucleated RBC % 0, D-Dimer Quant (PE/DVT) 2.17 H*, Sodium 136, Potassium 5.9 H, Chloride 100, Carbon Dioxide 20.9L, Anion Gap 15, BUN 65 H, Creatinine 2.73 H, Estim Creat Clear Calc 19.84 L, Est GFR (MDRD) Non-Af 23 L, BUN/Creatinine Ratio 23.8 H, Glucose 406 H, Calcium 8.6, [place] [address] H, Procalcitonin 0.10 Micro: Microbiology 04/19/25 00:25 Mucosa - Nose SARS-CoV-2, Influenza & RSV (PCR) - Final Imaging Radiology Impression Chest X-Ray 04/19/25 01:00 IMPRESSION: Increased mild bilateral pleural effusions. Increased passive atelectatic airspace disease of the lower lobes. Increased pulmonary venous congestion and interstitial edema. Enlarged cardiac silhouette. Reading Location: [place] [address] Assessment & Plan Assessment/Plan (1) CHF exacerbation: QUALIFIERS: Heart failure type: combined systolic and diastolic Qualified Code(s): I50.43 - Acute on chronic combined systolic (congestive) and diastolic (congestive) heart failure (2) COPD exacerbation: (3) Acute hypoxic respiratory failure: (4) Hyperkalemia: (5) CKD (chronic kidney disease), stage IV: (6) Leukocytosis: QUALIFIERS: Leukocytosis type: unspecified Qualified Code(s): D72.829 - Elevated white blood cell count, unspecified (7) Lactic acidosis: (8) Hyperglycemia due to type 2 diabetes mellitus: QUALIFIERS: Diabetes mellitus meterman insulin use: with longterm use Qualified Code(s): E11.65 - Type 2 diabetes mellitus with hyperglycemia; Z79.4 - custodial (current) use of insulin (9) Elevated d-dimer: (10) Generalized weakness: PLAN: Plan 1. AE of combined chronic systolic and diastolic CHF; LVEF of 40% plus stage I diastolic dysfunction - Admit to ICU. Start furosemide 40 mg IV twice daily plus supplemental magnesium. Continue metoprolol as before but hold spironolactone due to #3. Serialize troponin. Both patient and family have opted to make him DNR-CCA; without intubation. 2. AE COPD with Acute Hypoxic Respiratory Failure with patient requiring Airvo complicating #1 - Continue methylprednisolone IV begun in ER plus start empiric IV ceftriaxone. He is scheduled on as needed nebulizers. Wean Airvo as tolerated. Recheck ABG at 7:00 AM. 3. Hyperkalemia of 5.9 mmol/L present on admission in the setting of known CKD;stage IV; with eGFR of 23 mL/min with patient recently requiring hemodialysis compounding #1 & #2 - Patient to be treated in ER with R insulin plus D50, Kayexalate and IV furosemide. Recheck BMP at noon to follow trend. Finally, taty consult nephrology sees patient on rounds in the a.m. further recommendations with appreciated in advance. 4. Adverse Drug Reaction to spironolactone likely contributing to #3 - Stop spironolactone and add to list of allergies in an effort to prevent recurrent hyperkalemia. 5. Leukocytosis of 14K present on admission without obvious signs of infection due to suspected acute stress response attributable to #1 - #4 - Check UA to assess for possible infection with patient started on empiric ceftriaxone for #2. Serialize lactate to follow trend. Patient did not have additional signs of sepsis present on admission. 6. DM-2; uncontrolled with Hyperglycemia of 406 mg/dL present on admission withelevated Lactic Acid of 4.8 mmol/L noted shortly after admission adding to the medical complexity of #1 - #5 - Keep NPO for now while on Airvo. FSBS q. 6 hours plus SSI. 7. Elevated D-dimer of 2.17 present on admission with CTA of chest unable to bedone due to poor renal function plus asymmetric (R>L) bilateral lower extremity edema - Check bilateral LE Doppler plus V/Q scan. Will also give 1 dose of enoxaparin 70 mg sq until these tests are confirmed negative. 8. Recent admission here from April 03, 2025 to April 10, 2025 for treatment of acute hypoxic respiratory failure due to AE COPD with superimposed pneumonia complicated by MADONNA in the setting of CKD; stage IIIb-IV with patient initiated on hemodialysis via tunneled catheter placed during that admission along with punrf-kb-oocjavo anemia with hemoglobin dropping to 6.9 g/dL requiring blood transfusion with persistent and progressively worsening Generalized Weakness - Noted with similar pattern of admission on this occasion. PT/OT and Case Management to consult and treat on rounds in a.m. as patient will likely requirerehabilitation at time of discharge with help appreciated in advance. 9. Essential hypertension; on metoprolol, hydralazine and spironolactone - Continue metoprolol and hydralazine as before but hold spironolactone in light of #3. 10. Hyperlipidemia; on ezetimibe - Resume ezetimibe as previous. 11. CAD; s/p NSTEMI - Noted. Serialize troponin. 12. History of COVID-19 (2022) - Noted. 13. Chronic macrocytic anemia; with recent blood transfusion ~10 days ago - Apparently stable with hemoglobin of 8.8 g/dL present on admission (8.6 g/dL on 04/10/2025). 14. BPH; history of obstructive uropathy on tamsulosin - Resume tamsulosin as before. 15. GERD; on pantoprazole - Maintain PPI. 16. OA; with lumbar spondylolisthesis plus sciatica - Give acetaminophen prn for hpwn-pb-lsqvufca (level 1-5/10) pain or fever. 17. DVT prophylaxis - Patient given renally-dosed enoxaparin 70 mg sq x 1 untilV/Q scan and LE Doppler are confirmed negative for VTE. Total time: Approximately (but not less than) 75 minutes. Charges/Coding Visit Charges Inpatient E&M: 65746 Init Hosp L3 04/19/25 0644 <Electronically signed by Nancy Rizzo DO> Cosigner Signature (if applicable): CC: Dr. Ryley Jeter MD; Dr. Nancy Rizzo DO~ Signed [facility] Work Phone: 1(624) 548-574006-19-2025 Discharge summary Author Arnulfo Argeliacassandra [facility] Note Date/Time April 19, 2025 3:48 am [facility] Medical Records Department [address] [place] [address] Emergency Department Summary 04/19/25 MR#: [id number] Acct: [id number] Name: ENOC ARMANDO Rep #:[id number] : 1945 79 From: Arnulfo Jose DO PCP: Dr. Ryley Jeter MD Status:ADM IN Location: ICU ICU01-1 HPI History of Present Illness Chief Complaint: Shortness of Breath Informant: patient, spouse/S.O. and EMS Narrative Narrative: Patient is an 79-year-old male with past medical history of COPD and CHF as wellas insulin-dependent diabetes. He was admitted to the hospital on April 03 secondary to respiratory distress. At that time he actually underwent dialysis short-term based on his symptoms. Patient states he was discharged home and is now wearing 4 to 6 L of nasal cannula oxygen 24/05. He states that despite wearing his oxygen and taking his medication over the last 24 hours he has had increasing shortness of breath. He denies any fevers or chills but with the worsening shortness of breath has concern for repeat volume overload and therefore comes in for evaluation The patient does admit to smoking half a pack a day for 60 years but denies any formal diagnosis of COPD [facility] Medical History Non-STEMI (non-ST elevated myocardial infarction) Bradycardia MADONNA (acute kidney injury) Anemia LV dysfunction Chronic anemia Tobacco use COPD (chronic obstructive pulmonary disease) HLD (hyperlipidemia) HTN (hypertension) BPH (benign prostatic hyperplasia) Chronic low back pain with sciatica Diabetes mellitus, type 2 CKD (chronic kidney disease), stage III Pneumonia COVID Wears glasses Wears dentures Home Medications ?Medication ?Instructions ?Recorded ?Last Taken ?Type amlodipine 10 mg tablet (Norvasc) 10 mg PO 1200 08/12/21 History insulin glargine 100 unit/mL (3 15 unit subcut QPM 03/21 Unknown History mL) subcutaneous pen (Lantus Solostar U-100 Insulin) insulin lispro 100 unit/mL 0 unit subcut TID SLIDING S JENNIFER 08/05/21 Unknown History subcutaneous pen tamsulosin 0.4 mg capsule (Flomax) 0.4 mg PO .COMPLEX urination 08/05/21 Unknown History ezetimibe 10 mg tablet 10 mg PO DAILY 04/06/24 Unkn own History metoprolol succinate 25 mg 25 mg PO DAILY 04/06/24 Unk nown History tablet,extended release 24 hr blood sugar diagnostic (Contour 09/12/24 Unknown Hist ory Next Test Strips) hydralazine 50 mg tablet 50 mg PO Q8H 04/03/25 Unknow n History pantoprazole 40 mg tablet,delayed 40 mg PO DAILY #30 t abs 04/10/25 Unknown Rx release spironolactone 25 mg tablet 25 mg PO DAILY 04/19/25 Un known History Allergy/AdvReac Type Severity Reaction Status Date / Time spironolactone AdvReac Intermediate Hyperkalemi Verified 04/19/25 03:10 a Corticosteroids AdvReac Other Verified 04/03/25 00:16 (Glucocorticoids) (steroids) Fnivcde-JQV-IpE Reductase AdvReac Other Verified 04/03/25 00:16 Inhibitor (Qcitigu-Mdn-Bla Reductase Inhibitor) Family History Mother COPD (chronic obstructive pulmonary disease) Father CAD (coronary artery disease) Heart disease Surgical History Hx of cystoscopy Hx of colonoscopy Hx of left cataract extraction Hx of right cataract extraction Social History household members: spouse Smoking Status: Current every day smoker tobacco type: cigarettes alcohol intake: never substance use type: does not use ROS ROS ED Constitutional Constitutional ED: Denies chills or fever(s) ENT ENT ED: Denies rhinorrhea or sore throat Cardiovascular Cardiovascular: Reports orthopnea and racing heartbeat; Denies chest pain or palpitations Respiratory/Chest Respiratory/Chest: Reports cough, dyspnea, dyspnea on exertion, orthopnea and sputum Gastrointestinal Gastrointestinal: Denies abdominal pain, diarrhea, nausea or vomiting Genitourinary Genitourinary ED: Denies dysuria Musculoskeletal Musculoskeletal: Denies myalgias Integumentary Denies rash Neurologic Neurologic: Reports weakness; Denies headache(s) Hematologic/Lymphatic Hematologic/Lymphatic: Denies easy bleeding or easy bruising Allergic/Immunologic Allergic/Immunologic ED: Denies mouth swelling or tongue swelling EXAM Physical Exam Const Vital Signs: 04/19/25 00:00 04/19/25 00:04 04/19/25 00:17 Temperature 96.8 F L Temperature Source Axillary Pulse Rate 107 H 93 Respiratory Rate 26 H 22 H Respiratory Effort Short of Breath Labored Respiratory Pattern Tachypnea Tachypnea Blood Pressure 173/76 H Blood Pressure Mean 108 Pulse Ox 100 Oxygen Delivery Method Non-Rebreather Oxygen Flow Rate (L/min) 15 Fraction of Inspired Oxygen (FIO2) 04/19/25 00:29 04/19/25 00:30 04/19/25 00:32 Temperature Temperature Source Pulse Rate 93 95 Respiratory Rate 17 21 H Respiratory Effort Respiratory Pattern Blood Pressure 146/51 H Blood Pressure Mean 82 Pulse Ox 94 97 97 Oxygen Delivery Method High Flow Oxygen Flow Rate (L/min) 10 Fraction of Inspired Oxygen (FIO2) 04/19/25 00:33 04/19/25 00:45 04/19/25 00:50 Temperature Temperature Source Pulse Rate 94 91 Respiratory Rate 19 H 18 Respiratory Effort Respiratory Pattern Normal Blood Pressure 146/58 H Blood Pressure Mean 86 Pulse Ox 98 97 Oxygen Delivery Method Oxygen Flow Rate (L/min) Fraction of Inspired Oxygen (FIO2) 50 04/19/25 01:00 04/19/25 01:10 04/19/25 01:15 Temperature 98.3 F Temperature Source Temporal Pulse Rate 92 95 92 Respiratory Rate 14 23 H 16 Respiratory Effort Respiratory Pattern Blood Pressure 140/52 H 140/52 H 141/57 H Blood Pressure Mean 77 81 81 Pulse Ox 98 97 Oxygen Delivery Method Oxygen Flow Rate (L/min) Fraction of Inspired Oxygen (FIO2) 04/19/25 01:30 04/19/25 01:45 04/19/25 02:00 Temperature 97.7 F L Temperature Source Temporal Pulse Rate 92 92 92 Respiratory Rate 14 14 23 H Respiratory Effort Respiratory Pattern Blood Pressure 140/56 H 134/56 H 140/53 H Blood Pressure Mean 81 78 82 Pulse Ox 94 95 94 Oxygen Delivery Method Airvo Oxygen Flow Rate (L/min) 50 Fraction of Inspired Oxygen (FIO2) 04/19/25 02:00 04/19/25 02:15 04/19/25 02:19 Temperature Temperature Source Pulse Rate 94 92 Respiratory Rate 18 Respiratory Effort Respiratory Pattern Blood Pressure 132/54 H 149/57 H 140/53 H Blood Pressure Mean 77 82 Pulse Ox 93 Oxygen Delivery Method Oxygen Flow Rate (L/min) Fraction of Inspired Oxygen (FIO2) 04/19/25 02:19 04/19/25 02:22 04/19/25 02:30 Temperature 97.7 F L Temperature Source Pulse Rate 92 92 90 Respiratory Rate 19 H 19 H 15 Respiratory Effort Respiratory Pattern Blood Pressure 140/53 H 140/53 H 132/58 H Blood Pressure Mean 79 82 79 Pulse Ox 94 94 94 Oxygen Delivery Method Oxygen Flow Rate (L/min) Fraction of Inspired Oxygen (FIO2) 04/19/25 02:45 04/19/25 03:00 Temperature 97.7 F L Temperature Source Oral Pulse Rate 90 97 Respiratory Rate 18 16 Respiratory Effort Respiratory Pattern Blood Pressure 136/61 H 134/54 H Blood Pressure Mean 83 80 Pulse Ox 92 98 Oxygen Delivery Method Airvo Oxygen Flow Rate (L/min) 50 Fraction of Inspired Oxygen (FIO2) Positive well nourished and well developed Constitutional Narrative: Patient is in respiratory distress with tachypnea and accessory muscle use General Appearance ED: well developed; Negative for pallor HEENT Reports dry mucous membranes HEENT Narrative: No tongue or lip swelling no oral lesions no airway edema or compromise Mucous membranes are dry and tacky without secondary findings to suggest infection Mouth ED: Yes dry mucous membranes Mouth: dry mucous membranes Eyes PERRL and EOMs intact bilaterally General Eye ED: Negative for pale conjunctiva or scleral icterus Neck supple and no JVD Neck Narrative: No nuchal rigidity or meningeal signs JVD is noted bilaterally Chest Wall palpation of chest normal Chest Narrative: No bony deformity or subcutaneous emphysema noted Resp Resp Narrative: Patient is in respiratory distress with tachypnea and accessory muscle use. He can only speak in 1-2 word sentences. Breath sounds are severely diminished throughout with diffuse inspiratory and expiratory wheezing and faint crackles noted in the bilateral bases Cardio regular rhythm Rate: tachycardic and other Other Details: Tachycardic rate with regular rhythm Radial and carotid pulses are equal and symmetric GI normal to inspection, nondistended, normoactive bowel sounds, non-tender, non-distended and no masses GI Narrative: No voluntary guarding or rigidity or pulsatile mass No fluid wave noted Auscultation: normoactive bowel sounds Palpation: soft Extremity Extremity Narrative: +2-3 pitting edema to the bilateral lower extremities which is slightly greater on the right Negative Homans' sign bilaterally Neuro oriented x3, CN's II-XII intact bilaterally and no sensory deficits noted Sensorium / Orientation: alert Motor Exam: strength 5/5 throughout Psych mental status grossly normal Skin no rashes or lesions noted General Skin Exam: Negative for jaundice or pallor MDM MDM MDM Narrative Medical decision making narrative: Patient arrived to the ER in respiratory distress. He was now requiring 10 to 15 L to keep his pulse ox above 90%. Despite the pulse ox reading above 90 he still had dyspnea with speech and increased work of breathing. As he admits to smoking for roughly 60 years and does have both inspiratory and expiratory wheezing I had concern for COPD exacerbation and therefore he was given albuterol and DuoNeb treatments as well as 125 of Solu-Medrol. There is also concern for volume overload based on his recent hospitalization and peripheral edema. His chest x-ray was obtained and compared to April 03 and he has worseningvascular congestion and now pleural effusions indicating his shortness of breathis most likely volume overload/CHF. Secondary to this he was transitioned to Airvo at 50 L and had improvement of his work of breathing and symptoms. He wasalso given sublingual nitro and oral captopril to reduce preload and afterload. He is chronically anemic and his hemoglobin is at baseline therefore I feel no need for blood transfusion. Creatinine is elevated at 2.7 but this is improved compared to recent hospitalization at 3.5. However because of the high value I do not feel that diuretics are appropriate and therefore they will be held at this time. With his recent hospitalization and the fact his right leg is slightly more swollen than the left there was concern for potential pulmonary embolus. The D-dimer is elevated at 2.17 but I cannot perform a CTA of the chest based on his chronic kidney disease. However he does not have pleuritic chest pain or calf tenderness so this is most likely a false elevation. The patient is also hyperkalemic and secondary to his he will be given calcium gluconate to stabilize cardiac membranes as well as insulin and Kayexalate to help with resolution of this. At this time he has had improvement with the provided medication and the Airvo but his risk for recurrent symptoms or need for progression to BiPAP or intubation is high and therefore I feel that he should be placed in the ICU. The case was discussed with the hospitalist who agrees with this and therefore he will be admitted to their care at this time for continued treatment of his CHF exacerbation/respiratory failure History & Record Review Discussion w/independent historian: EMS personnel, Patient and Family Lab Data Attestation: I reviewed the patient's lab results. Labs: Laboratory Results - last 24 hr 04/19/25 04/19/25 00:07 02:54 WBC 14.0 H RBC 2.93 L Hgb 8.8 L Hct 27.5 L MCV 93.9 MCH 30.0 MCHC 32.0 RDW Std Deviation 46.1 H RDW Coeff of Humaira 13.4 Plt Count 289 MPV 11.4 Immature Gran % (Auto) 0.500 Neut % (Auto) 82.3 H Lymph % (Auto) 10.0 L Sawyer % (Auto) 5.7 Eos % (Auto) 1.0 Baso % (Auto) 0.5 Absolute Neuts (auto) 11.5 H Absolute Lymphs (auto) 1.40 Nucleated RBC % 0 D-Dimer Quant (PE/DVT) 2.17 H* Sodium 136 Potassium 5.9 H Chloride 100 Carbon Dioxide 20.9 L Anion Gap 15 BUN 65 H Creatinine 2.73 H Estim Creat Clear Calc 19.84 L Est GFR (MDRD) Non-Af 23 L BUN/Creatinine Ratio 23.8 H Glucose 406 H Calcium 8.6 Magnesium 2.3 [place] [address] H Procalcitonin 0.10 POC Glucose 437 H Radiography Diagnostic Testing: Clinical Impression(s) from Imaging Studies Chest X-Ray 04/19/25 01:00 IMPRESSION: Increased mild bilateral pleural effusions. Increased passive atelectatic airspace disease of the lower lobes. Increased pulmonary venous congestion and interstitial edema. Enlarged cardiac silhouette. Reading Location: [place] [address] Chest x-ray as interpreted by the emergency medicine physician reveals bilateralpulmonary vascular congestion with bilateral pleural effusions which is increased from April 03 Management Discussion w/another healthcare provider: Hospitalist Critical Care Time Critical Care Time: Yes Critical care time (excluding procedures): Discussing w/Patient &/or Family/CareGiver, Discussing w/Consultants and - (Please note critical care time of 31 minutes) Discharge Plan Dx/Rx/DC Orders Clinical Impression: CHF exacerbation, COPD exacerbation, Acute hypoxic respiratory failure, Hyperkalemia, CKD (chronic kidney disease), stage IV, Chronic anemia Disposition Disposition: Acute Care Hospital [facility] What to do if you have Problems For any increased pain, shortness of breath, bleeding, nausea or vomiting, chestpain, or any unexpected problems, contact your Primary Care Provider. Call [facility] ([phone]) or report to the closest Emergency Room. Call 911 if necessary. 04/19/25 0348 <Electronically signed by Arnulfo Jose DO> Cosigner Signature (if applicable): CC: Dr. Ryley Jeter MD ~ Signed [facility] Work Phone: 1(484) 573-674206-19-[address] [facility]06-10-2025 Discharge summary [facility] Medical Records Department [address] [place] [address] Instructions for Home/Discharge Instructions 04/10/25 1527 MR#: [id number] Acct: [id number] Name: ENOC ARMANDO Rep #:[id number] : 1945 79 From: Grace Arnold MD PCP: Dr. Ryley Jeter MD Status:ADM IN Discharge Instructions Diet Discharge Diet: Low fat / Low cholesterol DC O2, CPAP, BIPAP needs Home O2 Discharge instructions: Yes Type of respiratory needs?: Oxygen Oxygen frequency: ContinuousContinuous oxygen liters per minute: 2 Dressing / [...] Hwang; Breezy Campbell; Denisha Thompson; Smooth Luis; Reva Arnold; Jose Moore Instructions Patient Instructions: Hemodialysis, [...] Instructions: 0.4 mg orally 3x/week; Takes on //WED; amlodipine [Norvasc] 10 mg Tablet 10 mg [...] can be placed): Home, Self Care 04/10/25 1527Grace Arnold MD CC: Dr. Dyana Hwang MD; Dr. Ryley Jeter MD; Dr. Denisha Thompson MD; Dr.Michael Adrian MD; Dr. Grace Arnold MD; Dr. Jose Moore MD; Dr. Smooth Luis MD ~ Signed [facility]06-10-2025 [facility] Progress note Author Denisha Thompson [facility] Note Date/Time April 10, 2025 12:2 7pm [facility] Medical Records Department [address] [place] [address] Progress Note - Nephrology 04/10/25 1226 MR#: [id number] Acct: [id number] Name: NEOC ARMANDO Rep #:[id number] : 1945 79 From: Denisha tirado MD PCP: Dr. Ryley Jeter MD Status:ADM IN Location: [place] [address] Subjective Subjective no new events Objective Data [...] 82.6 H, Lymph % (Auto) 9.4 L, Sawyer % (Auto) 7.0, Eos % (Auto) 0.1, [...] stage III (followed by Dr. Albert in [place]), COPD, diabetes mellitus admitted to the hospital [...] Cosigner Signature (if applicable): CC: ~ Signed [facility] Work Phone: 1(266) 559-228206-10-2025 Progress note [facility] Medical Records Department [address] [place] [address] Progress Note - Nephrology 04/10/25 1226 MR#: [id number] Acct: [id number] Name: ENOC ARMANDO Rep #:[id number] : 1945 79 From: Denisha tirado MD PCP: Dr. Ryley Jeter MD Status:ADM IN Location: [place] [address] Subjective Subjective no new events Objective Data [...] 82.6 H, Lymph % (Auto) 9.4 L, Sawyer % (Auto) 7.0, Eos % (Auto) 0.1, [...] stage III (followed by Dr. Albert in [place]), COPD, diabetes mellitus admitted to the hospital [...] Cosigner Signature (if applicable): CC: ~ Signed [facility]06-09-2025 Progress [facility] Note Date/Time April 09, 2025 6:52p m [facility] Medical Records Department [address] [place] [address] Progress Note 04/09/25 1501 MR#: [id number] Acct: [id number] Name: ENOC ARMANDO Rep #:[id number] : 1945 79 From: Grace Arnold MD PCP: Dr. Ryley Jeter MD Status:ADM IN Location: [place] [address] Subjective Subjective Patient seen and examined in the presence of his nurse. He had no complaints andhad an uneventful night. Review of systems is otherwise negative. He is requesting to go home if he is not having dialysis. 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 He [...] 77.6 H, Lymph % (Auto) 14.1 L, Sawyer % (Auto) 7.4, Eos % (Auto) 0.1, [...] Cardiology was consulted and records requested from [place] showed he had cardiac cath at [place] 2 years ago and had 2 blockages [...] prophylaxis: heparin Charges/Coding Visit Charges Inpatient E&M: 01579 Subs Hosp L2 04/09/25 1852 <Electronically signed by Grace Arnold MD> Grace Arnold MD Cosigner Signature (if applicable): CC: ~ Signed [facility] Work Phone: 1(898) 889-528206-09-2025 Progress note [facility] Medical Records Department [address] [place] [address] Progress Note 04/09/25 1501 MR#: [id number] Acct: [id number] Name: ENOC ARMANDO Rep #:[id number] : 1945 79 From: Grace Arnold MD PCP: Dr. Ryley Jeter MD Status:ADM IN Location: [facility] [id number] Subjective Subjective Patient seen and examined in the presence of his nurse. He had no complaints andhad an uneventful night. Review of systems is otherwise negative. He is requesting to go home if he is not having dialysis. 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 He [...] 77.6 H, Lymph % (Auto) 14.1 L, Sawyer % (Auto) 7.4, Eos % (Auto) 0.1, [...] Cardiology was consulted and records requested from [place] showed he had cardiac cath at [place] 2 years ago and had 2 blockages [...] prophylaxis: heparin Charges/Coding Visit Charges Inpatient E&M: 85272 Subs Hosp L2 04/09/25 1852 Grace Arnold MD Cosigner Signature (if applicable): CC: ~ Signed [facility]06-09-2025 Progress note Author Denisha Thompson [facility] Note Date/Time April 09, 2025 10:39 am [facility] Medical Records Department [address] [place] [address] Progress Note - Nephrology 04/09/25 1037 MR#: [id number] Acct: [id number] Name: ENOC ARMANDO Rep #:[id number] : 1945 79 From: Denisha tirado MD PCP: Dr. Ryley Jeter MD Status:ADM IN Location: [place] [address] Subjective Subjective No new complaints today. Urine [...] 77.6 H, Lymph % (Auto) 14.1 L, Sawyer % (Auto) 7.4, Eos % (Auto) 0.1, [...] stage III (followed by Dr. Albert in [place]), COPD, diabetes mellitus admitted to the hospital [...] about leaving today. Will notify hospitalist. 04/09/25 1037 <Electronically signed by Denisha Thompson MD> Cosigner Signature (if applicable): CC: ~ Signed [facility] Work Phone: [phone]) 818-295206-09-2025 Progress note [facility] Medical Records Department [address] [place] [address] Progress Note - Nephrology 04/09/25 1037 MR#: [id number] Acct: [id number] Name: ENOC ARMANDO Rep #:[id number] : 1945 79 From: Denisha tirado MD PCP: Dr. Ryley Jeter MD Status:ADM IN Location: [place] [address] Subjective Subjective No new complaints today. Urine [...] 77.6 H, Lymph % (Auto) 14.1 L, Sawyer % (Auto) 7.4, Eos % (Auto) 0.1, [...] stage III (followed by Dr. Albert in [place]), COPD, diabetes mellitus admitted to the hospital [...] about leaving today. Will notify hospitalist. 04/09/25 1038 Cosigner Signature (if applicable): CC: ~ Signed [facility]06-09-2025 Progress note Author Dyana Hwang [facility] Note Date/Time April 08, 2025 10:57 pm [facility] Medical Records Department [address] [place] [address] Progress Note - Hospitalist 04/08/25 0127 MR#: [id number] Acct: [id number] Name: TRENOC E Rep #:[id number] : 1945 79 From: Dyana Hwang MD PCP: Dr. Ryley Jeter MD Status:ADM IN Location: [place] [address] Hospitalist Note BS elevated, given ISS, repeat check remains elevated, will give an additional 15 u now and recheck 1-2 hours. 04/08/252256 <Electronically signed by Dyana Hwang MD> Cosigner Signature (if applicable): CC: ~ Signed [facility] Work Phone: 1(169) 795-617806-08-2025 Progress note [facility] Medical Records Department [address] [place] [address] Progress Note - Hospitalist 04/08/252256 MR#: [id number] Acct: [id number] Name: ENOC ARMANDO Rep #:[id number] : 1945 79 From: Dyana Hwang MD PCP: Dr. Ryley Jeter MD Status:ADM IN Location: [place] [address] Hospitalist Note BS elevated, given ISS, repeat check remains elevated, will give an additional 15 u now and recheck1-2 hours. 04/08/252256 Cosigner Signature (if applicable): CC: ~ Signed [facility]06-08-2025 Progress note Author Jose Moore [facility] Note Date/Time April 08, 2025 10:37 am [facility] Medical Records Department [address] [place] [address] Progress Note - Hospitalist 04/08/25 1026 MR#: [id number] Acct: [id number] Name: ENOC ARMANDO Rep #:[id number] : 1945 79 From: Jose lui MD PCP: Dr. Ryley Jeter MD Status:ADM IN Location: [place] [address] Subjective Subjective Feels better today than he [...] 88.0 H, Lymph % (Auto) 7.3 L, Sawyer % (Auto) 4.2, Eos % (Auto) 0.0, [...] a heart cath 2 years ago at [place] with 2 blockages that could not be [...] DVT: SCDs Charges/Coding Visit Charges Inpatient E&M: 58256 Subs Hosp L2 04/08/25 1037 <Electronically signed by Jose Moore MD> Cosigner Signature (if applicable): CC: ~ Signed [facility] Work Phone: 1(468) 348-927806-08-2025 Progress note [facility] Medical Records Department [address] [facility] [place] [address] Progress Note - Hospitalist 04/08/25 1026 MR#: [id number] Acct: [id number] Name: ENOC ARMANDO Rep #:[id number] : 1945 79 From: Jose lui MD PCP: Dr. Ryley Jeter MD Status:ADM IN Location: [place] [address] Subjective Subjective Feels better today than he [...] 88.0 H, Lymph % (Auto) 7.3 L, Sawyer % (Auto) 4.2, Eos % (Auto) 0.0, [...] a heart cath 2 years ago at [place] with 2 blockages that could not be [...] DVT: SCDs Charges/Coding Visit Charges Inpatient E&M: 43443 Subs Hosp L2 04/08/25 1037 Cosigner Signature (if applicable): CC: ~ Signed [facility]06-07-2025 Progress note Author Nate Forbes [facility] Note Date/Time April 07, 2025 5:18p m [facility] Medical Records Department [address] [place] [address] Progress Note - Natural Gas Plant Technician 04/07/25 1717 MR#: [id number] Acct: [id number] Name: ENOC ARMANDO Rep #:[id number] : 1945 79 From: Nate Forbes MD PCP: Dr. Ryley Jeter MD Status:ADM IN Location: [place] [address] Objective Data Objective Data Vital Signs: Vital [...] / 595 340 / 595 Output Total 175 / 2049 3380 / 3490 110 / [...] mls/hr 04/03/25 05:18 04/06/25 14:45 IV Infused .[id number] PRN Infusion Saline Flush Sodium Chloride 250 mls @ 15 mls/hr 04/03/25 05:18 IV .[id number] PRN Additional IVPB Infusion Dextrose 250 mls [...] 0.4 Mg Capsule PO 0.4 mg TuTa@1730 [facility] Administration Lab / Micro Data 04/07/25 06:25 [...] 79.0 H, Lymph % (Auto) 12.6 L, Sawyer % (Auto) 8.0, Eos % (Auto) 0.1, [...] per nephrology yesterday. Cont recommendations as per pulmonary/site supervising technical operator note yesterday. We will monitor peripherally over the weekend, but please call us any time if questions or if clinical worsening. Nate Forbes MD 04/07/25 1718 <Electronically signed by Nate Forbes MD> Cosigner Signature (if applicable): CC: ~ Signed [facility] Work Phone: 1(530) 343-323106-07-2025 Progress note [facility] Medical Records Department [address] [place] [address] Progress Note - Natural Gas Plant Technician 04/07/251716 MR#: [id number] Acct: [id number] Name: ENOC ARMANDO Rep #:[id number] : 1945 79 From: Nate Forbes MD PCP: Dr. Ryley Jeter MD Status:ADM IN Location: [place] [address] Objective Data Objective Data Vital Signs: Vital [...] 23:59 11:59 23:59 Intake Total 550 / 2009 255 / 595 340 / 595 Output Total 175 / 0 3380 / 3490 110 / 3490 Balance [...] mls/hr 04/03/25 05:18 04/06/25 14:45 IV Infused .[id number] PRN Infusion Saline Flush Sodium Chloride 250 mls @ 15 mls/hr 04/03/25 05:18 IV .[id number] PRN Additional IVPB Infusion Dextrose 250 mls [...] Hcl 0.4 Mg Capsule PO 0.4 mg Ayal@4237 [facility] Administration Lab / Micro Data 04/07/25 [...] 79.0 H, Lymph % (Auto) 12.6 L, Sawyer % (Auto) 8.0, Eos % (Auto) 0.1, [...] per nephrology yesterday. Cont recommendations as per pulmonary/site supervising technical operator note yesterday. We will monitor peripherally over the weekend, but please call us any time if questions or if clinical worsening. Nate Forbes MD 04/07/25 5076 Cosigner Signature (if applicable): CC: ~ Signed [facility]06-07-2025 Progress note Author Jose Moore [facility] Note Date/Time April 07, 2025 3:15p m [facility] Medical Records Department [address] [place] [address] Progress Note - Hospitalist 04/07/25 8110 MR#: [id number] Acct: [id number] Name: ENOC ARMANDO Rep #:[id number] : 1945 79 From: Jose lui MD PCP: Dr. Ryley Jeter MD Status:ADM IN Location: [place] [address] Subjective Subjective Doing well, no issues overnight. [...] 79.0 H, Lymph % (Auto) 12.6 L, Sawyer % (Auto) 8.0, Eos % (Auto) 0.1, [...] a cardiac cath 2 years ago at [place] and was told he had 2 blockages which were not amenable to revascularization. Records requested from [place]. Further management as per cardiology. 04/06/2025: Breath [...] as above. * Further records requested from [place] as above * cardiology on board 04/06/2025: [place] to be due to demand ischemia though [...] DVT: SCDs Charges/Coding Visit Charges Inpatient E&M: 08967 Subs Hosp L2 04/07/25 1515 <Electronically signed by Jose Moore MD> Cosigner Signature (if applicable): CC: ~ Signed [facility] Work Phone: 1(699) 814-763406-07-2025 Progress note [facility] Medical Records Department [address] [place] [address] Progress Note - Hospitalist 04/07/25 1450 MR#: [id number] Acct: [id number] Name: ENOC ARMANDO Rep #:[id number] : 1945 79 From: Jose lui MD PCP: Dr. Ryley Jeter MD Status:ADM IN Location: [place] [address] Subjective Subjective Doing well, no issues overnight. [...] 79.0 H, Lymph % (Auto) 12.6 L, Sawyer % (Auto) 8.0, Eos % (Auto) 0.1, [...] a cardiac cath 2 years ago at [place] and was told he had 2 blockages which were not amenable to revascularization. Records requested from [place]. Further management as per cardiology. 04/06/2025: Breath [...] as above. * Further records requested from [place] as above * cardiology on board 04/06/2025: [place] to be due to demand ischemia though [...] DVT: SCDs Charges/Coding Visit Charges Inpatient E&M: 00811 Subs Hosp L2 04/07/25 2743 Cosigner Signature (if applicable): CC: ~ Signed [facility]06-06-2025 Progress note Author Jose Moore [facility] Note Date/Time April 06, 2025 6:25p m [facility] Medical Records Department [address] [place] [address] Progress Note - Hospitalist 04/06/258 MR#: [id number] Acct: [id number] Name: ENOC ARMANDO Rep #:[id number] : 1945 79 From: Jose lui MD PCP: Dr. Ryley Jeter MD Status:ADM IN Location: [place] [address] Subjective Subjective Doing well, no issues overnight [...] (Auto) 83.3 H, Lymph % (Auto) 9.1L, Sawyer % (Auto) 7.0, Eos % (Auto) 0.0, [...] findings are grossly unchanged. Reading Location: [facility] Rhythm Strip Rhythm Strip: Sinus Rhythm [...] a cardiac cath 2 years ago at [place] and was told he had 2 blockages which were not amenable to revascularization. Records requested from [place]. Further management as per cardiology. 04/06/2025: Breath sounds are improving and he is maintaining nasal cannula after dialysis #Elevated cardiac enzymes: * initial troponin was 58, and only peaked at 76. 2D echo as above. * Further records requested from [place] as above * cardiology on board 04/06/2025: [place] to be due to demand ischemia though [...] DVT: Heparin Charges/Coding Visit Charges Inpatient E&M: 27873 Subs Hosp L2 04/06/25 1825 <Electronically signed by Jose Moore MD> Cosigner Signature (if applicable): CC: ~ Signed [facility] Work Phone: 1(488) 392-415806-06-2025 Progress note [facility] Medical Records Department [address] [place] [address] Progress Note - Hospitalist 04/06/25 1818 MR#: [id number] Acct: [id number] Name: ENOC ARMANDO Rep #:[id number] : 1945 79 From: Jose lui MD PCP: Dr. Ryley Jeter MD Status:ADM IN Location: [place] [address] Subjective Subjective Doing well, no issues overnight [...] (Auto) 83.3 H, Lymph % (Auto) 9.1L, Sawyer % (Auto) 7.0, Eos % (Auto) 0.0, [...] findings are grossly unchanged. Reading Location: [facility] Rhythm Strip Rhythm Strip: Sinus Rhythm [...] a cardiac cath 2 years ago at [place] and was told he had 2 blockages which were not amenable to revascularization. Records requested from [place]. Further management as per cardiology. 04/06/2025: Breath sounds are improving and he is maintaining nasal cannula after dialysis #Elevated cardiac enzymes: * initial troponin was 58, and only peaked at 76. 2D echo as above. * Further records requested from [place] as above * cardiology on board 04/06/2025: [place] to be due to demand ischemia though [...] 2 diabetes mellitus: on lantus. ISS. Accuchecks BERNICES #Hyperlipidemia: on ezetimibe #Nicotine dependence: counseled to quit. Nicotine patch prn. DVT: Heparin Charges/Coding Visit Charges Inpatient E&M: 49693 Subs Hosp L2 04/06/25 1825 Cosigner Signature (if applicable): CC: ~ Signed [facility]06-06-2025 Progress note Author Bipin Gonzalez [facility] Note Date/Time April 06, 2025 4:18p m [facility] Medical Records Department [address] [place] [address] Progress Note - Nephrology 04/06/25 1117 MR#: [id number] Acct: [id number] Name: ENOC ARMANDO Rep #:[id number] : 1945 79 From: Bipin arreola MANAGER PLANT-[employer] PCP: Dr. Ryley Jeter MD Status:ADM IN Location: [address] 1 Documented by User: AURY Davison 04/06/25 11:24 [...] Sl. Cloudy, Urine pH 5.0, Ur Specific [place] 1.020, Urine Protein 100 H, Urine Glucose [...] (Auto) 83.3 H, Lymph % (Auto) 9.1L, Sawyer % (Auto) 7.0, Eos % (Auto) 0.0, [...] findings are grossly unchanged. Reading Location: [facility] Rhythm Strip Rhythm Strip: Sinus Rhythm [...] stage III (followed by Dr. Albert in [place]), COPD, diabetes mellitus admitted to the hospital [...] stage III (followed by Dr. Albert in [place]), COPD, diabetes mellitus admitted to the hospital [...] and plan reviewed with Dr. Thompson. 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 BAKARI is typically short lived. hopefully will recover soon. HD today. will reevaluate tomorrow 04/06/25 1124 <Electronically signed by Bipin JEFFERS> Cosigner Signature (if applicable): 04/06/25 1618 <Electronically signed by Denisha Thompson MD> CC: ~ Signed [facility] Work Phone: 1(571) 553-609406-06-2025 Progress note [facility] Medical Records Department [address] [place] [address] Progress Note - Nephrology 04/06/25 1117 MR#: [id number] Acct: [id number] Name: ENOC ARMANDO Rep #:[id number] : 1945 79 From: Bipin JEFFERS PCP: Dr. Ryley Jeter MD Status:ADM IN Location: [place] [address] Documented by User: AURY Davison 04/06/25 11:24 [...] Sl. Cloudy, Urine pH 5.0, Ur Specific [place] 1.020, Urine Protein 100 H, Urine Glucose [...] (Auto) 83.3 H, Lymph % (Auto) 9.1L, Sawyer % (Auto) 7.0, Eos % (Auto) 0.0, [...] findings are grossly unchanged. Reading Location: [facility] Rhythm Strip Rhythm Strip: Sinus Rhythm [...] stage III (followed by Dr. Albert in [place]), COPD, diabetes mellitus admitted to the hospital [...] stage III (followed by Dr. Albert in [place]), COPD, diabetes mellitus admitted to the hospital [...] and plan reviewed with Dr. Thompson. 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 BAKARI is typically short lived. hopefully will recover soon. HD today. will reevaluate tomorrow 04/06/25 1124 Cosigner Signature (if applicable): 04/06/25 1618 CC: ~ Signed [facility]06-06-2025 Progress note Author Smooth Luis [facility] Note Date/Time April 06, 2025 11:24 am [facility] Medical Records Department [address] [place] [address] Progress Note - Surgery 04/06/25 1123 MR#: [id number] Acct: [id number] Name: ENOC ARMANDO Rep #:[id number] : 1945 79 From: Smooth Luis MD PCP: Dr. Ryley Jeter MD Status:ADM IN Location: [place] [address] Subjective Subjective Patient seen on rounds this [...] Sl. Cloudy, Urine pH 5.0, Ur Specific [place] 1.020, Urine Protein 100 H, Urine Glucose [...] (Auto) 83.3 H, Lymph % (Auto) 9.1L, Sawyer % (Auto) 7.0, Eos % (Auto) 0.0, [...] findings are grossly unchanged. Reading Location: [facility] Rhythm Strip Rhythm Strip: Sinus Rhythm [...] Cosigner Signature (if applicable): CC: ~ Signed [facility] Work Phone: 1(851) 951-683906-06-2025 Progress note Author Landry Fagan [facility] Note Date/Time April 06, 2025 9:42a [facility] Medical Records Department [address] [place] [address] Progress Note - Natural Gas Plant Technician 04/06/25 0938 MR#: [id number] Acct: [id number] Name: ENOC ARMANDO Rep #:[id number] : 1945 79 From: Landry Fagan DO PCP: Dr. Ryley Jeter MD Status:ADM IN Location: [facility] BYA116- 1 Assessment & Plan Assessment/Plan (1) Acute [...] without intubation This note was generated with [employer] dictation software. It may contain incorrectwords, spelling, [...] Sl. Cloudy, Urine pH 5.0, Ur Specific [place] 1.020, Urine Protein 100 H, Urine Glucose [...] (Auto) 83.3 H, Lymph % (Auto) 9.1L, Sawyer % (Auto) 7.0, Eos % (Auto) 0.0, [...] findings are grossly unchanged. Reading Location: [facility] Rhythm Strip Rhythm Strip: Sinus Rhythm [...] affect normal Charges/Coding Visit Charges Inpatient E&M: 44081 Subs Hosp L2 04/06/25 0942 <Electronically signed by Landry Fagan DO> Cosigner Signature (if applicable): CC: ~ Signed [facility] Work Phone: 1(546) 151-559706-06-2025 Progress note [facility] Medical Records Department [address] [place] [address] Progress Note - Surgery 04/06/25 1123 MR#: [id number] Acct: [id number] Name: ENOC ARMANDO Rep #:[id number] : 1945 79 From: Smooth Luis MD PCP: Dr. Ryley Jeter MD Status:ADM IN Location: [place] [address] Subjective Subjective Patient seen on rounds this [...] Sl. Cloudy, Urine pH 5.0, Ur Specific [place] 1.020, Urine Protein 100 H, Urine Glucose [...] (Auto) 83.3 H, Lymph % (Auto) 9.1L, Sawyer % (Auto) 7.0, Eos % (Auto) 0.0, [...] findings are grossly unchanged. Reading Location: [facility] Rhythm Strip Rhythm Strip: Sinus Rhythm [...] Cosigner Signature (if applicable): CC: ~ Signed [facility]06-06-2025 Progress note [facility] Medical Records Department [address] [facility] [place] [address] Progress Note - Natural Gas Plant Technician 04/06/25 0938 MR#: [id number] Acct: [id number] Name: ENOC ARMANDO Rep #:[id number] : 1945 79 From: Landry Fagan DO PCP: Dr. Ryley Jeter MD Status:ADM IN Location: [facility] PJO718- 1 Assessment & Plan Assessment/Plan (1) Acute [...] without intubation This note was generated with [employer] dictation software. It may contain incorrectwords, spelling, [...] Sl. Cloudy, Urine pH 5.0, Ur Specific [place] 1.020, Urine Protein 100 H, Urine Glucose [...] (Auto) 83.3 H, Lymph % (Auto) 9.1L, Sawyer % (Auto) 7.0, Eos % (Auto) 0.0, [...] findings are grossly unchanged. Reading Location: [facility] Rhythm Strip Rhythm Strip: Sinus Rhythm [...] affect normal Charges/Coding Visit Charges Inpatient E&M: 84740 Subs Hosp L2 04/06/25 0942 Cosigner Signature (if applicable): CC: ~ Signed [facility]06-05-2025 Consult note Author Smooth Luis [facility] Note Date/Time April 05, 2025 6:10p m [facility] Medical Records Department [address] [place] [address] Consultation - Surgical 04/05/25 1806 MR#: [id number] Acct: [id number] Name: ENOC ARMANDO Rep #:[id number] : 1945 79 From: Smooth Luis MD PCP: Dr. Ryley Jeter MD Status:ADM IN Location: [place] [address] Assessment & Plan Assessment/Plan (1) CKD (chronic kidney disease), stage III: QUALIFIERS: Chronic kidney disease stage 3 subtype: stage 3b (GFR 30-44) Qualified Code(s): N18.32 - Chronic kidney disease, stage 3b PLAN: Plan Patient is an 79-year-old male with worsening renal function. Hadoop Architect is recommending temporary dialysis. Dialysis catheter was [...] who presented to the emergency department at [facility] several days ago with history of [...] obtained to insert the temporary dialysis catheter. [facility] Medical History Chronic anemia Tobacco use COPD [...] AdvReac Other Verified 04/03/25 00:16 (Glucocorticoids) (steroids) Vuzgmsk-XJG-RgR Reductase AdvReac Other Verified 04/03/25 00:16 Inhibitor (Qzfbzab-Dzw-Hsz Reductase Inhibitor) Family History Mother COPD (chronic [...] 85.5 H, Lymph % (Auto) 5.7 L, Sawyer % (Auto) 7.7, Eos % (Auto) 0.0, [...] Sl. Cloudy, Urine pH 5.0, Ur Specific [place] 1.020, Urine Protein 100 H, Urine Glucose [...] to prior. Correlate with PSA. Reading Location: [id number] Charges/Coding Visit Charges Inpatient E&M: 18703 Init Hosp L3 04/05/25 1810 <Electronically signed by Smooth Luis MD> Cosigner Signature (if applicable): CC: Dr. Ryley Jeter MD~ Signed [facility] Work Phone: 1(480) 258-523606-05-2025 Radiology Diagnostic study note [facility] Imaging Services [address] [place] [address] CXR for Line Placement MR#: [id number] Acct: [id number] Name: ENOC ARMANDO Rep #: [id number] : 1945 M 79 From: Chely Batista MD PCP: Dr. Ryley Jeter MD Status: ADM IN Study:CXR for Line Placement Date of Exam: 04/05/25 Exam# [id number] Ordering Dr: St dany Luis MD PROCEDURE: CXR FOR LINE PLACEMENT 04/05/2025 REASON FOR EXAM: TEMP HD CATH INSERTION ON RIGHT TECHNIQUE: Single frontal view of the chest COMPARISON: 04/03/2025 RAD/CXR for Line Placement IMPRESSION: Interval insertion of right IJ line with tip at SVC, likely in appropriate position. Lung findings are grossly unchanged. Reading Location: [facility] CC: Dr. Ryley Jeter MD; Dr. Smooth Luis MD ~ Public Policy Mediator: Signed [facility]06-05-2025 Progress note Author Grace [facility] Note Date/Time April 05, 2025 5:19p m [facility] Medical Records Department [address] [place] [address] Progress Note 04/05/25 1212 MR#: [id number] Acct: [id number] Name: ENOC ARMANDO Rep #:[id number] : 1945 79 From: Grace Arnold MD PCP: Dr. Ryley Jeter MD Status:ADM IN Location: [place] [address] Subjective Subjective Patient seen and examined. He [...] 85.5 H, Lymph % (Auto) 5.7 L, [place]yer % (Auto) 7.7, Eos % (Auto) 0.0, [...] to prior. Correlate with PSA. Reading Location: [facility] Rhythm Strip Rhythm Strip: Sinus Rhythm Rate: [...] a cardiac cath 2 years ago at [place] and was told he had 2 blockages which were not amenable to revascularization. Records requested from [place]. Further management as per cardiology. * #Elevated cardiac enzymes: * initial troponin was 58, and only peaked at 76. 2D echo as above. * Further records requested from [place] as above * cardiology on board * [...] heparin sq. Charges/Coding Visit Charges Inpatient E&M: 84019 Subs Hosp L3 04/05/25 1719 <Electronically signed by Grace Arnold MD> Grace Arnold MD Cosigner Signature (if applicable): CC: ~ Signed [facility] Work Phone: 1(989) 114-991806-05-2025 Procedure note [facility] Medical Records Department [address] [place] [address] Operative Report 04/05/25 1810 MR#: [id number] Acct: [id number] Name: ENOC ARMANDO Rep #:[id number] : 1945 79 From: Smooth Luis MD PCP: Dr. Ryley Jeter MD Status:ADM IN Location: [place] [address] Problems Associated Problem List Diagnoses (1) CKD (chronic kidney disease), stage III: Procedures Cardiovascular CF Procedures 33xxx-39xxx: 28875 Insert tunneled cv cath Operative Report (Standard) Operative Information Date of Procedure: 04/05/25 Pre-Operative Diagnosis: Renal failure Post-Operative Diagnosis: Renal failure Surgery/Procedure Performed: Right internal jugular temporary dialysis catheter insertion with ultrasound nutritional services host: No Type of Anesthesia: Local Procedure Start Time: 17:00 Procedure Stop Time: 17:20 Select all DRAINS/GRAFTS/IMPLANTS that apply: Prosthetic device Prosthetic device details: 12 Turkish temporary dialysis catheter Estimated Blood Loss: 15 [...] needle. Patient did develop some ectopy with initia l guidewire insertion. This was withdrawn slightly until [...] Reason prophylaxis not ordered: Treatment Not Indicated 04/05/251816 Cosigner Signature (if applicable): CC: Dr. Harinder [...] Nolen MD; Dr. Nina Lee MD~ Signed [facility]06-05-2025 Consult note [facility] Medical Records Department [address] [place] [address] Consultation - Surgical 04/05/25 1806 MR#: [id number] Acct: [id number] Name: ENOC ARMANDO Rep #:[id number] : 1945 79 From: Smooth Luis MD PCP: Dr. Ryley Jeter MD Status:ADM IN Location: [place] [address] Assessment & Plan Assessment/Plan (1) CKD (chronic kidney disease), stage III: QUALIFIERS: Chronic kidney disease stage 3 subtype: stage 3b (GFR 30-44) Qualified Code(s): N18.32 - Chronic kidney disease, stage 3b PLAN: Plan Patient is an 79-year-old male with worsening renal function. Hadoop Architect is recommending temporary dialysis. Dialysis catheter was [...] who presented to the emergency department at [facility] several days ago with history of [...] obtained to insert the temporary dialysis catheter. [facility] Medical History Chronic anemia Tobacco use COPD [...] AdvReac Other Verified 04/03/25 00:16 (Glucocorticoids) (steroids) Gammbgu-EKJ-ObN Reductase AdvReac Other Verified 04/03/25 00:16 Inhibitor (Wzsovfk-Fdr-Lwh Reductase Inhibitor) Family History Mother COPD (chronic [...] 85.5 H, Lymph % (Auto) 5.7 L, [place]yer % (Auto) 7.7, Eos % (Auto) 0.0, [...] Sl. Cloudy, Urine pH 5.0, Ur Specific [place] 1.020, Urine Protein 100 H, Urine Glucose [...] to prior. Correlate with PSA. Reading Location: [facility] Charges/Coding Visit Charges Inpatient E&M: 78771 Init Hosp 04/05/25 1810 Cosigner Signature (if applicable): CC: Dr. Ryley Jeter MD~ Signed [facility]06-05-2025 Progress note Author Denisha Thompson [facility] Note Date/Time April 05, 2025 3:20p m [facility] Medical Records Department [address] [place] [address] Progress Note - Nephrology 04/05/25 1518 MR#: [id number] Acct: [id number] Name: ENOC ARMANDO Ariela Rep #:[id number] : 1945 79 From: Denisha tirado MD PCP: Dr. Ryley Jeter MD Status:ADM IN Location: [place] [address] Subjective Subjective he is on bipap Objective [...] 85.5 H, Lymph % (Auto) 5.7 L, Sawyer % (Auto) 7.7, Eos % (Auto) 0.0, [...] Sl. Cloudy, Urine pH 5.0, Ur Specific [place] 1.020, Urine Protein 100 H, Urine Glucose [...] to prior. Correlate with PSA. Reading Location: [facility] Rhythm Strip Rhythm Strip: Sinus [...] stage III (followed by Dr. Albert in [place]), COPD, diabetes mellitus admitted to the hospital [...] Cosigner Signature (if applicable): CC: ~ Signed [facility] Work Phone: 1(222) 787-763806-05-2025 Progress note [facility] Medical Records Department [address] [place] [address] Progress Note 04/05/25 1212 MR#: [id number] Acct: [id number] Name: ENOC ARMANDO Rep #:[id number] : 1945 79 From: Grace Arnold MD PCP: Dr. Ryley Jeter MD Status:ADM IN Location: [place] [address] Subjective Subjective Patient seen and examined. He [...] 85.5 H, Lymph % (Auto) 5.7 L, Sawyer % (Auto) 7.7, Eos % (Auto) 0.0, [...] to prior. Correlate with PSA. Reading Location: [facility] Rhythm Strip Rhythm Strip: Sinus [...] a cardiac cath 2 years ago at [place] and was told he had 2 blockages which were not amenable to revascularization. Records requested from [place]. Further management as per cardiology. * #Elevated cardiac enzymes: * initial troponin was 58, and only peaked at 76. 2D echo as above. * Further records requested from [place] as above * cardiology on board * [...] heparin sq. Charges/Coding Visit Charges Inpatient E&M: 29846 [facility] Hosp 04/05/25 4454 Grace Arnold MD Cosigner Signature (if applicable): CC: ~ Signed [facility]06-05-2025 Progress note Author Barbie Martin [facility] Note Date/Time April 05, 2025 3:10p m [facility] Medical Records Department [address] [place] [address] Progress Note - Cardiology 04/05/25 1459 MR#: [id number] Acct: [id number] Name: ENOC ARMANDO Rep #:[id number] : 1945 79 From: Barbie gibson MD PCP: Dr. Ryley Jeter MD Status:ADM IN Location: [place] [address] Subjective Subjective Patient denies any chest pain. [...] 85.5 H, Lymph % (Auto) 5.7 L, Sawyer % (Auto) 7.7, Eos % (Auto) 0.0, [...] Sl. Cloudy, Urine pH 5.0, Ur Specific [place] 1.020, Urine Protein 100 H, Urine Glucose [...] 85.5 H, Lymph % (Auto) 5.7 L, Sawyer % (Auto) 7.7, Eos % (Auto) 0.0, [...] Sl. Cloudy, Urine pH 5.0, Ur Specific [place] 1.020, Urine Protein 100 H, Urine Glucose [...] to prior. Correlate with PSA. Reading Location: [id number]-[id number] Physical Exam Const alert HEENT normocephalic Eyes [...] catheterization within the last 2 years at [place]. He also had 2 blockages that were [...] be willing to see him in the [facility] in 7to 10 days after discharge. Charges/Coding Visit Charges Inpatient E&M: 63903 Subs Hosp L2 04/05/25 1510 <Electronically signed by Barbie Martin MD> Cosigner Signature (if applicable): CC: ~ Signed [facility] Work Phone: 1([phone]) 141-130606-05-2025 Progress note [facility] Medical Records Department [address] [place] [address] Progress Note - Nephrology 04/05/25 1518 MR#: [id number] Acct: [id number] Name: ENOC ARMANDO Rep #:[id number] : 1945 79 From: Denisha tirado MD PCP: Dr. Ryley Jeter MD Status:ADM [facility] Subjective Subjective he is on bipap Objective [...] 85.5 H, Lymph % (Auto) 5.7 L, Sawyer % (Auto) 7.7, Eos % (Auto) 0.0, [...] Sl. Cloudy, Urine pH 5.0, Ur Specific [place] 1.020, Urine Protein 100 H, Urine Glucose [...] to prior. Correlate with PSA. Reading Location: [id number] Rhythm Strip Rhythm Strip: Sinus Rhythm Rate: [...] stage III (followed by Dr. Albert in [place]), COPD, diabetes mellitus admitted to the hospital [...] Cosigner Signature (if applicable): CC: ~ Signed [facility]06-05-2025 Progress note [facility] Medical Records Department [address] [place] [address] Progress Note - Cardiology 04/05/25 9242 MR#: [id number] Acct: [id number] Name: ENOC ARMANDO Rep #:[id number] : 1945 79 From: Barbie gibson MD PCP: Dr. Ryley Jeter MD Status:ADM IN Location: [place] [address] Subjective Subjective Patient denies any chest pain. [...] 85.5 H, Lymph % (Auto) 5.7 L, Sawyer % (Auto) 7.7, Eos % (Auto) 0.0, [...] Sl. Cloudy, Urine pH 5.0, Ur Specific [place] 1.020, Urine Protein 100 H, Urine Glucose [...] 85.5 H, Lymph % (Auto) 5.7 L, Sawyer % (Auto) 7.7, Eos % (Auto) 0.0, [...] Sl. Cloudy, Urine pH 5.0, Ur Specific [place] 1.020, Urine Protein 100 H, Urine Glucose [...] to prior. Correlate with PSA. Reading Location: [id number]-G Physical Exam Const alert HEENT normocephalic Eyes [...] catheterization within the last 2 years at [place].He also had 2 blockages that were not [...] be willing to see him in the [facility] in 7to 10 days after discharge. Charges/Coding Visit Charges Inpatient E&M: 93948 Subs Hosp L2 04/05/25 9504 Cosigner Signature (if applicable): CC: ~ Signed [facility]06-05-2025 Consult note Author Bipin Gonzalez [facility] Note Date/Time April 05, 2025 10:03 am [facility] Medical Records Department [address] [place] [address] Consultation - Nephrology 04/04/25 1518 MR#: [id number] Acct: [id number] Name: ENOC ARMANDO Rep #:[id number] : 1945 79 From: Bipin arreola NP-C PCP: Dr. Ryley Jeter MD Status:ADM IN Location: [place] [address] Assessment & Plan Assessment/Plan (1) MADONNA (acute kidney injury): (2) CKD (chronic kidney disease), stage III: QUALIFIERS: Chronic kidney disease stage 3 subtype: stage 3b (GFR 30-44) Qualified Code(s): N18.32 - Chronic kidney disease, stage 3b (3) Acute hypoxic respiratory failure: PLAN: Plan This is an 79-year-old male with past medical history significant for hypertension, CKD stage III (followed by Dr. Albert in [place]), COPD, diabetes mellitus admitted to the hospital [...] has been following with Dr. Ayanna Albert, veneer stock grader in [place] for history of CKD. Baseline creatinine has been around 1.8 mg/dL range. Patient denies any new medications before hospitalization. Denies any recent nausea, vomiting or diarrhea. Denies any urinary habitus changes. No NSAIDs. [facility] Medical History (Updated 04/04/25 @ 15:23 by [...] AdvReac Other Verified 04/03/25 00:16 (Glucocorticoids) (steroids) Jxrmqhv-UGS-RpG Reductase AdvReac Other Verified 04/03/25 00:16 Inhibitor (Dxaizrn-Yia-Rtd Reductase Inhibitor) Family History Mother COPD (chronic [...] (Auto) 90.4 H, Lymph % (Auto) 4.9L, Sawyer % (Auto) 4.0, Eos % (Auto) 0.0, [...] Strip: Sinus Rhythm Rate: 86 04/04/25 1532 <Electronically signed by Bipin JEFFERS> Cosigner Signature (if applicable): 04/05/25 1003 <Electronically signed by Denisha Thompson MD> CC: Dr. Ryley Jeter MD~ Signed [facility] Work Phone: 1(268) 300-421106-05-2025 Progress note Author Landry Fagan [facility] Note Date/Time April 05, 2025 9:30a m [facility] Medical Records Department [address] [place] [address] Progress Note - Natural Gas Plant Technician 04/05/25 0819 MR#: [id number] Acct: [id number] Name: ENOC ARMANDO Ariela Rep #:[id number] : 1945 79 From: Landry Fagan DO PCP: Dr. Ryley Jeter MD Status:ADM IN Location: [place] [address]- Assessment & Plan Assessment/Plan (1) Acute hypoxic [...] without intubation This note was generated with [employer] dictation software. It may contain incorrectwords, spelling, [...] H 98/53 L 95 Nasal Cannula 94 06/05/25 06:23 04/05/25 07:58 04/05/25 07:58 04/05/25 07:40 [...] 85.5 H, Lymph % (Auto) 5.7 L, Sawyer % (Auto) 7.7, Eos % (Auto) 0.0, [...] to prior. Correlate with PSA. Reading Location: [id number]-M Rhythm Strip Rhythm Strip: Sinus Rhythm Rate: [...] affect normal Charges/Coding Visit Charges Inpatient E&M: 46526 Subs Hosp L2 04/05/25 0930 <Electronically signed by Landry Fagan DO> Cosigner Signature (if applicable): CC: ~ Signed [facility] Work Phone: 1(422) 871-796706-05-2025 Consult note [facility] Medical Records Department [address] [place] [address] Consultation - Nephrology 04/04/25 1518 MR#: [id number] Acct: [id number] Name: ENOC ARMANDO Rep #:[id number] : 1945 79 From: Bipin arreola MANAGER PLANT-C PCP: Dr. Ryley Jeter MD Status:ADM IN Location: [place] [address] Assessment & Plan Assessment/Plan (1) MADONNA (acute kidney injury): (2) CKD (chronic kidney disease), stage III: QUALIFIERS: Chronic kidney disease stage 3 subtype: stage 3b (GFR 30-44) Qualified Code(s): N18.32 - Chronic kidney disease, stage 3b (3) Acute hypoxic respiratory failure: PLAN: Plan This is an 79-year-old male with past medical history significant for hypertension, CKD stage III (followed by Dr. Albert in [place]), COPD, diabetes mellitus admitted to the hospital [...] has been following with Dr. Ayanna Albert, veneer stock grader in [place] for history of CKD. Baseline creatinine has been around 1.8 mg/dL range. Patient denies any new medications before hospitalization. Denies any recent nausea, vomiting or diarrhea. Denies any urinary habitus changes. No NSAIDs. [facility] Medical History (Updated 04/04/25 @ 15:23 by [...] AdvReac Other Verified 04/03/25 00:16 (Glucocorticoids) (steroids) Zkmewgf-VKK-QmG Reductase AdvReac Other Verified 04/03/25 00:16 Inhibitor (Ajlwfzs-Uxl-Qjo Reductase Inhibitor) Family History Mother COPD (chronic [...] (Auto) 90.4 H, Lymph % (Auto) 4.9L, Sawyer % (Auto) 4.0, Eos % (Auto) 0.0, [...] 1003 CC: Dr. Ryley Jeter MD~ Signed [facility]06-05-2025 Progress note [facility] Medical Records Department [address] [place] [address] Progress Note - Natural Gas Plant Technician 04/05/25 08 MR#: [id number] Acct: [id number] Name: ENOC ARMANDO Rep #:[id number] : 1945 79 From: Landry Fagan DO PCP: Dr. Ryley Jeter MD Status:ADM IN Location: [facility] OJW934- 1 Assessment & Plan Assessment/Plan (1) Acute [...] without intubation This note was generated with [employer] dictation software. It may contain incorrectwords, spelling, [...] 85.5 H, Lymph % (Auto) 5.7 L, Sawyer % (Auto) 7.7, Eos % (Auto) 0.0, [...] to prior. Correlate with PSA. Reading Location: [facility]-MIBHAAJMB-K Rhythm Strip Rhythm Strip: Sinus Rhythm Rate: [...] affect normal Charges/Coding Visit Charges Inpatient E&M: 45213 Subs Hosp L2 04/05/25 0930 Cosigner Signature (if applicable): CC: ~ Signed [facility]06-05-2025 Radiology Diagnostic study note [facility] Imaging Services [address] [place] [address] Kidney and Bladder MR#: [id number] Acct: [id number] Name: ENOC ARMANDO Rep #: [id number] : 1945 M 79 From: Demetria Mahoney MD PCP: Dr. Ryley Jeter MD Status: ADM IN Study:Kidney and Bladder Date of Exam: 0 04/04/25 Exam# [id number] Ordering Dr: Kesha Arnold MD PROCEDURE: KIDNEY [...] to prior. Correlate with PSA. Reading Location: [facility] CC: Dr. Ryley Jeter MD; Dr. Grace Arnold MD ~ Public Policy Mediator: Signed [facility]06-04-2025 Progress note Author Grace Arnold [facility] Note Date/Time April 04, 2025 5:42p m [facility] Medical Records Department [address] [place] [address] Progress Note 04/04/25 1121 MR#: [id number] Acct: [id number] Name: ENOC ARMANDO Rep #:[id number] : 1945 79 From: Grace Arnold MD [...] (Auto) 90.4 H, Lymph % (Auto) 4.9L, Sawyer % (Auto) 4.0, Eos % (Auto) 0.0, [...] a cardiac cath 2 years ago at [place] and was told he had 2 blockages which were not amenable to revascularization. Records requested from [place]. Further management as per cardiology. * #Elevated cardiac enzymes: * initial troponin was 58, and only peaked at 76. 2D echo as above. * Further records requested from [place] as above * cardiology on board * [...] heparin sq. Charges/Coding Visit Charges Inpatient E&M: 36567 Subs Hosp L3 04/04/25 1742 <Electronically signed by Grace Arnold MD> Grace Arnold MD Cosigner Signature (if applicable): CC: ~ Signed [facility] Work Phone: 1(479) 278-886206-04-2025 Progress note [facility] Medical Records Department [address] [place] [address] Progress Note 04/04/25 1121 MR#: [id number] Acct: [id number] Name: ENOC ARMANDO Rep #:[id number] : 1945 79 From: Grace Arnold MD [...] (Auto) 90.4 H, Lymph % (Auto) 4.9L, Sawyer % (Auto) 4.0, Eos % (Auto) 0.0, [...] a cardiac cath 2 years ago at [place] and was toldhe had 2 blockages which were not amenable to revascularization. Records requested from [place]. Further management as per cardiology. * #Elevated cardiac enzymes: * initial troponin was 58, and only peaked at 76. 2D echo as above. * Further records requested from [place] as above * cardiology on board * [...] heparin sq. Charges/Coding Visit Charges Inpatient E&M: 94858 Subs Hosp L3 04/04/25 1749 Grace Arnold MD Cosigner Signature (if applicable): CC: ~ Signed [facility]06-04-2025 Progress note Author Donte Nolen [facility] Note Date/Time April 04, 2025 2:56p m [facility] Medical Records Department [address] [place] [address] Progress Note - Natural Gas Plant Technician 04/04/25 1257 MR#: [id number] Acct: [id number] Name: ENOC ARMANDO Rep #:[id number] : 1945 79 From: Donte Silver PCP: [...] mls @ 15 mls/hr 04/03/25 05:18 IV .H37K95O PRN Saline Flush Sodium Chloride 250 mls @ 15 mls/hr 04/03/25 05:18 IV .B53X49G PRN Additional IVPB Infusion Dextrose 250 mls @ 999 mls/hr 04/03/25 13:17 Dextrose 10%-Water IV .Q16M PRN Hypoglycemic Protocol Protocol Dextrose/Sodium Chloride 1,000 mls @ 60 mls/hr 04/03/25 22:35 04/03/25 23:16 IV 60 mls/hr .S06N14L DIDI Administration Insulin Glargine 15 unit 04/04/25 [...] Hcl 0.4 Mg Capsule PO 0.4 mg Ayla@6290 DIDI Administration Lab / Micro Data 04/04/25 [...] (Auto) 90.4 H, Lymph % (Auto) 4.9L, [place]yer % (Auto) 4.0, Eos % (Auto) 0.0, [...] this encounter was done via Telemedicine 04/04/25 9510 <Electronically signed by Donte Nolen MD> Cosigner Signature (if applicable): CC: ~ Signed [facility] Work Phone: 1(104) 433-716906-04-2025 Progress note [facility] Medical Records Department [address] [place] [address] Progress Note - Natural Gas Plant Technician 04/04/25 1257 MR#: [id number] Acct: [id number] Name: ENOC ARMANDO Rep #:[id number] : 1945 79 From: Donte Silver PCP: [...] Mg/Ml Syringe IM X1 PRN HYPOGLYCEMIA Protocol Pamellaesin 10 ml 04/03/25 05:17 Guaifenesin 10 Ml [...] mls @ 15 mls/hr 04/03/25 05:18 IV .H18A27J PRN Saline Flush Sodium Chloride 250 mls @ 15 mls/hr 04/03/25 05:18 IV .H16W00M PRN Additional IVPB Infusion Dextrose 250 mls @ 999 mls/hr 04/03/25 13:17 Dextrose 10%-Water IV .Q16M PRN Hypoglycemic Protocol Protocol Dextrose/Sodium Chloride 1,000 mls @ 60 mls/hr 04/03/25 22:35 04/03/25 23:16 IV 60 mls/hr .B70M76M DIDI Administration Insulin Glargine 15 unit 04/04/25 [...] 25 Mg Tablet PO 25 mg DAILY [facility] Administration Protocol Nitroglycerin 0.4 mg 04/03/25 05:17 Nitroglycerin (Inpatient Use) 0.4 Mg Tab.Subl SL Q5M PRN CARDIAC/CHEST PAIN Ondansetron HCl 4 mg 04/03/25 05:17 Ondansetron 4 Mg/2 Ml Vial IV Q8H PRN PRN NAUSEA/VOMITING Potassium Chloride 20 meq 04/03/25 08:00 04/04/25 10:50 Potassium Chloride Oral Tablet 20 Meq PO 20 meq BIDCM [facility] Administration Prednisone 40 mg 04/05/25 08:00 Prednisone 20 Mg Tablet PO 04/10/25 08:01 BREAKFAST [facility] Prochlorperazine Edisylate 5 mg 04/03/25 05:17 Prochlorperazine [...] Hcl 0.4 Mg Capsule PO 0.4 [facility] Administration Lab / Micro Data 04/04/25 03:15 [...] (Auto) 90.4 H, Lymph % (Auto) 4.9L, [place]yer % (Auto) 4.0, Eos % (Auto) 0.0, [...] this encounter was done via Telemedicine 04/04/25 1456 Cosigner Signature (if applicable): CC: ~ Signed [facility]06-04-2025 Progress note Author Breezy Campbell [facility] Note Date/Time April 04, 2025 10:35 am [facility] Medical Records Department [address] [place] [address] Progress Note - Cardiology 04/04/25 1028 MR#: [id number] Acct: [id number] Name: ENOC ARMANDO Rep #:[id number] : 1945 79 From: Breezy Campbell MD PCP: Dr. Ryley Jeter MD Status:ADM IN Location: ICU ICU04-1 Subjective Subjective Has not been able to obtain records from [place] for his catheterization within the past 2 [...] (Auto) 90.4 H, Lymph % (Auto) 4.9L, Sawyer % (Auto) 4.0, Eos % (Auto) 0.0, [...] 90.4 H, Lymph % (Auto) 4.9 L, Sawyer % (Auto) 4.0, Eos % (Auto) 0.0, [...] catheterization within the last 2 years at [place]. He also had 2 blockages that were [...] be willing to see him in the [facility] in 7to 10 days after discharge. Charges/Coding Visit Charges Inpatient E&M: 74035 Subs Hosp L3 04/04/25 1035 <Electronically signed by Breezy Campbell MD> Cosigner Signature (if applicable): CC: ~ Signed [facility] Work Phone: 1([phone]) 865-243906-04-2025 Progress note [facility] Medical Records Department [address] [place] [address] Progress Note - Cardiology 04/04/25 1028 MR#: [id number] Acct: [id number] Name: ENOC ARMANDO Rep #:[id number] : 1945 79 From: Breezy Campbell MD PCP: Dr. Ryley Jeter MD Status:ADM IN Location: ICU ICU04-1 Subjective Subjective Has not been able to obtain records from [place] for his catheterization within the past 2 [...] (Auto) 90.4 H, Lymph % (Auto) 4.9L, Sawyer % (Auto) 4.0, Eos % (Auto) 0.0, [...] 90.4 H, Lymph % (Auto) 4.9 L, Sawyer %(Auto) 4.0, Eos % (Auto) 0.0, Baso [...] catheterization within the last 2 years at [place]. He also had 2 blockages that were [...] be willing to see him in the [facility] in 7to 10 days after discharge. Charges/Coding Visit Charges Inpatient E&M: 06602 Subs Hosp L3 04/04/25 1035 Cosigner Signature (if applicable): CC: ~ Signed [facility]06-03-2025 Progress note Author Grace [facility] Note Date/Time April 03, 2025 5:08p m [facility] Medical Records Department [address] [place] [address] Progress Note 04/03/25 1352 MR#: [id number] Acct: [id number] Name: ENOC ARMANDO Rep #:[id number] : 1945 79 From: Grace Arnold MD [...] 76.4 H, Lymph % (Auto) 13.5 L, Sawyer % (Auto) 7.0, Eos % (Auto) 1.9, [...] (Auto) 94.8 H, Lymph % (Auto) 3.3L, Sawyer % (Auto) 1.1, Eos % (Auto) 0.0, [...] possibly multifocal congestion and/or pneumonia. Reading Location: [facility] Chest CTA 04/03/25 02:34 IMPRESSION: Mild bilateral pleural effusions. Passive atelectatic airspace disease/airspace consolidations of the lower lobes. Bilateral chronic perihilar interstitial pulmonary thickening with associated mild multifocal ground-glass densities, possibly superimposed pneumonia. Mild diffuse spondylosis. No CT evidence of pulmonary embolus or aortic dissection. Reading Location: [facility] Echocardiogram 04/03/25 05:55 Interpretation Summary Mid to [...] 32 mins Charges/Coding Visit Charges Inpatient E&M: 49872 PROLNG IP/OBS E/M EA 15 MIN 04/03/25 1705 <Electronically signed by Grace Arnold MD> Grace [...] upwards we will consult nephrology. 04/03/25 1708 <Electronically signed by Grace de leon MD> Date _ Grace Arnold MD Cosigner Signature (if applicable): Date cc: ~* Signed [facility] Work Phone: 1(198) 922-981106-03-2025 Consult note Author Breezy Campbell [facility] Note Date/Time April 03, 2025 4:52p m [facility] Medical Records Department [address] [place] [address] Consultation - Cardiology 04/03/25 1630 MR#: [id number] Acct: [id number] Name: ENOC ARMANDO Rep #:[id number] : 1945 79 From: Breezy Campbell MD [...] left heart catheterization a year ago in [place] we will try to obtain those records [...] I will try to obtain records from [place] to see if this is new but [...] Will try to obtain cardiovascular records from [place] from last year. 2. Continue current medical therapy. 3. Will follow along with you as the patient recovers from his pulmonary insufficiency we may need to alter his cardiovascular medical therapy. 4. The patient does not routinely see a metal fabricator apprentice by his report. We will behappy to [...] last year he underwentleft heart catheterization in [place] and that revealed 2 blocked arteries that had natural bypasses build up around him and he was treated medically. The patient specifically denies any chest pain. He denies any lower extremity edema. The patient's complaint was really dyspnea on exertion. He is now beingtreated with IV antibiotics and ventilatory support. The patient is DNR [facility]. [facility] Medical History (Updated 04/03/25 @ 16:49 by [...] AdvReac Other Verified 04/03/25 00:16 (Glucocorticoids) (steroids) Verkhtc-JVZ-MuM Reductase AdvReac Other Verified 04/03/25 00:16 Inhibitor (Pbgmdhc-Cao-Qvq Reductase Inhibitor) Family History Mother COPD (chronic [...] 20% Risk Charges/Coding Visit Charges Inpatient E&M: 93526 Init Hosp L3 Objective Data Vital Signs: [...] 76.4 H, Lymph % (Auto) 13.5 L, Sawyer % (Auto) 7.0, Eos % (Auto) 1.9, [...] (Auto) 94.8 H, Lymph % (Auto) 3.3L, Sawyer % (Auto) 1.1, Eos % (Auto) 0.0, [...] 76.4 H, Lymph % (Auto) 13.5 L, Sawyer % (Auto) 7.0, Eos % (Auto) 1.9, Baso % (Auto) 0.6, Absolute Neuts (auto) 12.0 H, Nucleated RBC % 0, PT 13.4, INR 1.0,APTT 37.3 H, D-Dimer Quant (PE/DVT) 1.86 H*, Sodium 139, Potassium 4.4, Bljhmxos854, Carbon Dioxide 20.8 L, Anion Gap 14, [...] 94.8 H, Lymph % (Auto) 3.3 L, Sawyer % (Auto) 1.1, Eos % (Auto) 0.0, [...] possibly multifocal congestion and/or pneumonia. Reading [facility] Chest CTA 04/03/25 02:34 IMPRESSION: Mild bilateral pleural effusions. Passive atelectatic airspace disease/airspace consolidations of the lower lobes. Bilateral chronic perihilar interstitial pulmonary thickening with associated mild multifocal ground-glass densities, possibly superimposed pneumonia. Mild diffuse spondylosis. No CT evidence of pulmonary embolus or aortic dissection. Reading Location: [facility] Echocardiogram 04/03/25 05:55 Interpretation Summary Mid to [...] applicable): CC: Dr. Ryley Jeter MD~ Signed [facility] Work Phone: 1(722) 826-859206-03-2025 Progress note [facility] Medical Records Department [address] [place] [address] Progress Note 04/03/25 1352 MR#: [id number] Acct: [id number] Name: ENOC ARMANDO Rep #:[id number] : 1945 79 From: Grace Arnold MD PCP: Dr. yRley Jeter MD Status:ADM IN Location: ICU ICU04-1 [...] 76.4 H, Lymph % (Auto) 13.5 L, Sawyer % (Auto) 7.0, Eos % (Auto) 1.9, Baso % (Auto) 0.6, Absolute Neuts (auto) 12.0 H, Absolute Lymphs (auto) 2.12, Nucleated RBC % 0, PT 13.4, INR 1.0,APTT 37.3 H, D-Dimer Quant (PE/DVT) 1.86 H*, Sodium 139, Potassium 4.4,Chloride 104, Carbon Vdjwvpo84.8 L, Anion Gap 14, BUN 42 H, [...] (Auto) 94.8 H, Lymph % (Auto) 3.3L, Sawyer % (Auto) 1.1, Eos % (Auto) 0.0, [...] possibly multifocal congestion and/or pneumonia. Reading Location: [facility] Chest CTA 04/03/25 02:34 IMPRESSION: Mild bilateral pleural effusions. Passive atelectatic airspace disease/airspace consolidations of the lower lobes. Bilateral chronic perihilar interstitial pulmonary thickening with associated mild multifocal ground-glass densities, possibly superimposed pneumonia. Mild diffuse spondylosis. No CT evidence of pulmonary embolus or aortic dissection. Reading Location: [place] [address] Echocardiogram 04/03/25 05:55 Interpretation Summary Mid to [...] 32 mins Charges/Coding Visit Charges Inpatient E&M: 19245 PROLNG IP/OBS E/M EA 15 MIN 04/03/25 [...] we will consult nephrology. 04/03/25 1708 m > Date _ Grace Arnold MD Cosigner Signature (if applicable): Date cc: ~* Signed [facility]06-03-2025 Consult note [facility] Medical Records Department [address] [place] [address] Consultation - Cardiology 04/03/25 1630 MR#: [id number] Acct: [id number] Name: ENOC ARMANDO Rep #:[id number] : 1945 79 From: Breezy Campbell MD PCP: Dr. Ryley Jeter MD Status:ADM IN Location: ICU ICU-1 Assessment & Plan Assessment/Plan (1) Acute hypoxic respiratory failure: PLAN: Patient's acute hypoxic respiratory failure appears to be primarily pulmonary in etiology. However, the patient does have mild LV dysfunction in a segmental fashion with an ejection fraction estimated at 40%. He apparently underwent left heart catheterization a year ago in [place] we will try to obtain those records [...] I will try to obtain records from [place] to see if this is new but [...] Will try to obtain cardiovascular records from [place] from last year. 2. Continue current medical therapy. 3. Will follow along with you as the patient recovers from his pulmonary insufficiency we may need to alter his cardiovascular medical therapy. 4. The patient does not routinely see a metal fabricator apprentice by his report. We will behappy to [...] last year he underwentleft heart catheterization in [place] and that revealed 2 blocked arteries that had natural bypasses build up around him and he was treated medically. The patient specifically denies any chest pain. He denies any lower extremity edema. The patient's complaint was really dyspnea on exertion. He is now beingtreated with IV antibiotics and ventilatorysupport. The patient is DNR CCA. [facility] Medical History (Updated 04/03/25 @ 16:49 by [...] AdvReac Other Verified 04/03/25 00:16 (Glucocorticoids) (steroids) Prayher-NRI-YgJ Reductase AdvReac Other Verified 04/03/25 00:16 Inhibitor (Ekdwgeu-Nix-Lys Reductase Inhibitor) Family History Mother COPD (chronic [...] 20% Risk Charges/Coding Visit Charges Inpatient E&M: 81331 Init Hosp L3 Objective Data Vital Signs: [...] 76.4 H, Lymph % (Auto) 13.5 L, Sawyer % (Auto) 7.0, Eos % (Auto) 1.9, Baso % (Auto) 0.6, Absolute Neuts (auto) 12.0 H, Absolute Lymphs (auto) 2.12, Nucleated RBC % 0, PT 13.4, INR 1.0,APTT 37.3 H, D-Dimer Quant (PE/DVT) 1.86 H*, Sodium 139, Potassium 4.4,Chloride 104, Carbon Juaynyq26.8 L, Anion Gap 14, BUN 42 H, [...] (Auto) 94.8 H, Lymph % (Auto) 3.3L, Sawyer % (Auto) 1.1, Eos % (Auto) 0.0, [...] 76.4 H, Lymph % (Auto) 13.5 L, Sawyer % (Auto) 7.0, Eos % (Auto) 1.9, Baso % (Auto) 0.6, Absolute Neuts (auto) 12.0 H, Nucleated RBC %0, PT 13.4, INR 1.0,APTT 37.3 H, D-Dimer Quant (PE/DVT) 1.86 H*, Sodium 139, Potassium 4.4, Mfcvlzix455, Carbon Dioxide 20.8 L, Anion Gap 14, [...] 94.8 H, Lymph % (Auto) 3.3 L, Sawyer %(Auto) 1.1, Eos % (Auto) 0.0, Baso [...] possibly multifocal congestion and/or pneumonia. Reading Location: [place] [address] Chest CTA 04/03/25 02:34 IMPRESSION: Mild bilateral pleural effusions. Passive atelectatic airspace disease/airspace consolidations of the lower lobes. Bilateral chronic perihilar interstitial pulmonary thickening with associated mild multifocal ground-glass densities, possibly superimposed pneumonia. Mild diffuse spondylosis. No CT evidence of pulmonary embolus or aortic dissection. Reading Location: [place] [address] Echocardiogram 04/03/25 05:55 Interpretation Summary Mid to [...] applicable): CC: Dr. Ryley Jeter MD~ Signed [facility]06-03-2025 Consult note Author Landry Fagan [facility] Note Date/Time April 03, 2025 9:04a m [facility] Medical Records Department [address] [place] [address] Consultation - Natural Gas Plant Technician 04/03/25 0850 MR#: [id number] Acct: [id number] Name: ENOC ARMANDO Rep #:[id number] : 1945 79 From: Landry Fagan DO [...] without intubation This note was generated with [employer] dictation software. It may contain incorrectwords, spelling, [...] he has never been evaluated by a housekeeping/laundry or completed pulmonary function studies. Therefore, it [...] to be a DNR CCA without intubation. [facility] Medical History Chronic anemia Tobacco use COPD [...] AdvReac Other Verified 04/03/25 00:16 (Glucocorticoids) (steroids) Lwyczmg-ZTX-FbJ Reductase AdvReac Other Verified 04/03/25 00:16 Inhibitor (Vxnxfuu-Lia-Osm Reductase Inhibitor) Family History Mother COPD (chronic [...] 76.4 H, Lymph % (Auto) 13.5 L, Sawyer % (Auto) 7.0, Eos % (Auto) 1.9, [...] (Auto) 94.8 H, Lymph % (Auto) 3.3L, Sawyer % (Auto) 1.1, Eos % (Auto) 0.0, [...] possibly multifocal congestion and/or pneumonia. Reading Location: [facility] Chest CTA 04/03/25 02:34 IMPRESSION: Mild bilateral pleural effusions. Passive atelectatic airspace disease/airspace consolidations of the lower lobes. Bilateral chronic perihilar interstitial pulmonary thickening with associated mild multifocal ground-glass densities, possibly superimposed pneumonia. Mild diffuse spondylosis. No CT evidence of pulmonary embolus or aortic dissection. [facility] Charges/Coding Visit Charges Inpatient E&M: 14524 Init Hosp L3 04/03/25 0904 <Electronically signed by Landry Fagan DO> Cosigner Signature (if applicable): CC: Dr. Ryley Jeter MD~ Signed [facility] Work Phone: 1(205) 118-526906-03-2025 Consult note [facility] Medical Records Department [address] [place] [address] Consultation - Natural Gas Plant Technician 04/03/25 0850 MR#: [id number] Acct: [id number] Name: ENOC ARMANDO Rep #:[id number] : 1945 79 From: Landry Fagan DO [...] without intubation This note was generated with [employer] software. It may contain incorrectwords, spelling, and [...] he has never been evaluated by a housekeeping/laundry or completed pulmonary function studies. Therefore, it is unknown if the patient has underlying obstructive lung disease. He does not utilize any inhalers at his [facility]. On presentation to the emergency department, [...] morning to be a DNR CCA withoutintubation. [facility] Medical History Chronic anemia Tobacco use COPD [...] AdvReac Other Verified 04/03/25 00:16 (Glucocorticoids) (steroids) Qugiaek-YXM-PuG Reductase AdvReac Other Verified 04/03/25 00:16 Inhibitor (Aifmanf-Rtw-Cdv Reductase Inhibitor) Family History Mother COPD (chronic [...] 76.4 H, Lymph % (Auto) 13.5 L, Sawyer % (Auto) 7.0, Eos % (Auto) 1.9, Baso % (Auto) 0.6, Absolute Neuts (auto) 12.0 H, Absolute Lymphs (auto) 2.12, Nucleated RBC % 0, PT 13.4, INR 1.0,APTT 37.3 H, D-Dimer Quant (PE/DVT) 1.86 H*, Sodium 139, Potassium 4.4,Chloride 104, Carbon Kelcybv10.8 L, Anion Gap 14, BUN 42 H, [...] (Auto) 94.8 H, Lymph % (Auto) 3.3L, Sawyer % (Auto) 1.1, Eos % (Auto) 0.0, [...] possibly multifocal congestion and/or pneumonia. Reading Location: [facility] Chest CTA 04/03/25 02:34 IMPRESSION: Mild bilateral pleural effusions. Passive atelectatic airspace disease/airspace consolidations of the lower lobes. Bilateral chronic perihilar interstitial pulmonary thickening with associated mild multifocal ground-glass densities, possibly superimposed pneumonia. Mild diffuse spondylosis. No CT evidence of pulmonary embolus or aortic dissection. [facility] Charges/Coding Visit Charges Inpatient E&M: 84672 Init Hosp L3 04/03/25 0904 Cosigner Signature (if applicable): CC: Dr. Ryley Jeter MD~ Signed [facility]06-03-2025 History and physical note Author Dyana Hwang [facility] Note Date/Time April 03, 2025 4:42a m [facility] Medical Records Department [address] [place] [address] H&P Exam - Hospitalist 04/03/25 0402 MR#: [id number] Acct: [id number] Name: ENOC ARMANDO Rep #:[id number] : 1945 79 From: Dyana Hwang MD [...] pathology, Tobacco use who presents to the [facility] ED on 04/03/2025 with history of [...] x 1 and sublingual nitroglycerin x 1. [facility] Medical History (Updated 04/03/25 @ 04:40 by [...] AdvReac Other Verified 04/03/25 00:16 (Glucocorticoids) (steroids) Kzxttrk-XOC-BmV Reductase AdvReac Other Verified 04/03/25 00:16 Inhibitor (Lssvqgd-Uao-Zro Reductase Inhibitor) Family History (Updated 04/03/25 @ [...] 76.4 H, Lymph % (Auto) 13.5 L, Sawyer % (Auto) 7.0, Eos % (Auto) 1.9, [...] possibly multifocal congestion and/or pneumonia. Reading Location: [place] [address] Chest CTA 04/03/25 02:34 IMPRESSION: Mild bilateral pleural effusions. Passive atelectatic airspace disease/airspace consolidations of the lower lobes. Bilateral chronic perihilar interstitial pulmonary thickening with associated mild multifocal ground-glass densities, possibly superimposed pneumonia. Mild diffuse spondylosis. No CT evidence of pulmonary embolus or aortic dissection. Reading Location: [place] [address] Assessment & Plan Assessment/Plan (1) Acute hypoxic respiratory failure: PLAN: Plan The patient is an 79 y/o M w/ PMHx: CKD stage III unclear subtype per GFR trending, Chronic macrocytic anemia, HTN, HLD, Diabetes mellitus type II, BPH with obstructive pathology, Tobacco use who presents to the [facility] ED on 04/03/2025 with history of [...] any pulmonary embolus or aortic dissection, initial [id number] with repeat delta troponin 76. Will maintain [...] 16 minutes. Charges/Coding Visit Charges Inpatient E&M: 06738 Init Hosp L3 Procedures Hospitalists Procedures: 35297 Advncd Care Plan 30 Min 04/03/25 0442 <Electronically signed by Dyana Hwang MD> Cosigner Signature (if applicable): CC: Dr. Dyana Hwang MD; Dr. Ryley Jeter MD~ Signed [facility] Work Phone: 1(140) 203-696806-03-2025 Evaluation note* Diagnosis Onset Date Resolution Status Admit Date Acute hypoxic respiratory failure ac [place] April 03, 2025 4:16am MADONNA (acute kidney injury) acute April 03, 2025 4:16am Anemia acute April 03, 2025 4:16am Bradycardia acute April 03 4:16am LV dysfunction acute April 03, 2025 4:16am Non-STEMI (non-ST elevated myocardial infarction) acute April 03, 2025 4:16am CKD (chronic kidney disease) , stage III chronic April 03, 2025 4 :16am HTN (hypertension) chronic April 032024 4:16am [facility] Work Phone: 1(259) 406-995306-03-2025 Evaluation note* Diagnosis Onset Date Resolution Status Admit Date Acute hypoxic respiratory failure resolved April 03, 2025 4 :16am MADONNA (acute kidney injury) inactive April 03, 2025 4:16am Anemia inactive April 03, 2025 4:16am Bradycardia inactive April 03 4:16am CKD (chronic kidney disease) , stage III inactive April 03, 2025 4 :16am HTN (hypertension) inactive April 032024 4:16am LV dysfunction inactive April 03, 2025 4:16am Non-STEMI (non-ST elevated myocardial infarction) inactive April 03, 2025 4:16am Acute hypoxic respiratory failure acute April 19, 2025 3:06am Elevated d-dimer acute April 3:06am Generalized weakness acute April 19, 2025 3:06am Hyperglycemia due to type 2 diabetes mellitus acute April 19 3:06am Hyperkalemia acute April 19, 2 025 3:06am Leukocytosis acute April 19 025 3:06am CHF exacerbation chronic April 3:06am CKD (chronic kidney disease) , stage IV chronic April 19, 2025 3:06am COPD exacerbation chronic April 192024 3:06am [facility] Work Phone: 1(321) 887-886206-03-2025 Evaluation note* Diagnosis Onset Date Resolution Status Admit Date Acute hypoxic respiratory failure resolved April 03, 2025 4 :16am MADONNA (acute kidney injury) inactive April 03, 2025 4:16am Anemia inactive April 03, 2025 4:16am Bradycardia inactive April 03 4:16am CKD (chronic kidney disease) , stage III inactive April 03, 2025 4 :16am HTN (hypertension) inactive April 032024 4:16am LV dysfunction inactive April 03, 2025 4:16am Non-STEMI (non-ST elevated myocardial infarction) inactive April 03, 2025 4:16am Acute hypoxic respiratory failure acute April 19, 2025 3:06am MADONNA (acute kidney injury) acute April 19, 2025 3:06am ASCVD (arteriosclerotic cardiovascular disease) acute April 3:06am Elevated d-dimer acute April 3:06am Generalized weakness acute April 19, 2025 3:06am HFrEF (heart failure with reduced ejection fraction) acute April 19, 2025 3:06am Hyperglycemia due to type 2 diabetes mellitus acute April 19 3:06am Hyperkalemia acute April 19, 2 025 3:06am Lactic acidosis acute April 3:06am Leukocytosis acute April 19, 2 025 3:06am CHF exacerbation chronic April 3:06am CKD (chronic kidney disease) stage 3, GFR 30-59 ml/min chronic April 012024 3:06am CKD (chronic kidney disease) , stage IV chronic April 19, 2025 3:06am COPD exacerbation chronic April 192024 3:06am [facility] Work Phone: 1(935) 476-180406-03-2025 Discharge summary Author John Brandon [facility] Note Date/Time April 03, 2025 4:11a m [facility] Medical Records Department [address] [place] [address] Emergency Department Summary 04/03/25 MR#: [id number] Acct: [id number] Name: ENOC ARMANDO Rep #:[id number] : 1945 79 From: John Ramirez PCP: Dr. Ryley Jeter MD Status:REG ER Location: ED HPI History of Present Illness Chief Complaint: Shortness of Breath PFSH PFS Medical History Pneumonia COVID Wears glasses Wears [...] AdvReac Other Verified 04/03/25 00:16 (Glucocorticoids) (steroids) Veegyos-Vov-Jwd Reductase AdvReac Other Verified 04/03/25 00:16 Inhibitor [...] of Inspired Oxygen (FIO2) 30 30 30 06/ 02:00 Temperature Temperature Source Pulse Rate 85 Respiratory Rate 17 Respiratory Effort Respiratory Depth Respiratory Pattern Blood Pressure 172/65 H Blood Pressure Mean 100 Pulse Ox 100 Oxygen Delivery Method Nasal Cannula Oxygen Flow Rate (L/min) 4 Fraction of Inspired Oxygen (FIO2) [facility] [place] Medical decision making narrative: HISTORY OF [...] reviewed, Vital signs reviewed Constitutional: please see [facility] HENT: MMM Eyes: Pupils equal round and [...] MEDICAL DECISION MAKING: Chief Complaint: please see [facility] External records reviewed: Reviewed prior imaging studies: [...] Consults: internal medicine only sees Dr. Hwang) [facility] Narrative: The patient was initially tachycardic, [...] to ICU This note was generated with [employer] dictation software. It may contain incorrectwords, spelling, [...] 76.4 H Lymph % (Auto) 13.5 L Sawyer % (Auto) 7.0 Eos % (Auto) 1.9 [...] possibly multifocal congestion and/or pneumonia. Reading Location: [place] [address] Discharge Plan Triage Chief Complaint: Shortness of [...] Instructions: 0.4 mg orally 3x/week; Takes on //WED; amlodipine [Norvasc] 10 mg Tablet 10 mg [...] MD [Primary Care Provider] - Print Language: Botswanan What to do if you have Problems For any increased pain, shortness of breath, bleeding, nausea or vomiting, chestpain, or any unexpected problems, contact your Primary Care Provider. Call [facility] ([phone]) or report to the closest Emergency Room. Call 911 if necessary. 04/03/25 0411 <Electronically signed by John Brandon DO> Cosigner Signature (if applicable): CC: Dr. Ryley Jeter MD ~ Signed [facility] Work Phone: 1(777) 933-626606-03-2025 History and physical note [facility] Medical Records Department [address] [place] [address] H&P Exam - Hospitalist 04/03/25 0402 MR#: [id number] Acct: [id number] Name: ENOC ARMANDO Rep #:[id number] : 1945 79 From: Dyana Hwang MD [...] pathology, Tobacco use who presents to the [facility] ED on 04/03/2025 with history of [...] x 1 and sublingual nitroglycerin x 1. [facility] Medical History (Updated 04/03/25 @ 04:40 by [...] AdvReac Other Verified 04/03/25 00:16 (Glucocorticoids) (steroids) Lcryndc-RAT-OhP Reductase AdvReac Other Verified 04/03/25 00:16 Inhibitor (Bfxchys-Ltf-Xqa Reductase Inhibitor) Family History (Updated 04/03/25 @ [...] 76.4 H, Lymph % (Auto) 13.5 L, Sawyer % (Auto) 7.0, Eos % (Auto) 1.9, [...] possibly multifocal congestion and/or pneumonia. Reading Location: [place] [address] Chest CTA 04/03/25 02:34 IMPRESSION: Mild bilateral pleural effusions. Passive atelectatic airspace disease/airspace consolidations of the lower lobes. Bilateral chronic perihilar interstitial pulmonary thickening with associated mild multifocal ground-glass densities, possibly superimposed pneumonia. Mild diffuse spondylosis. No CT evidence of pulmonary embolus or aortic dissection. Reading Location: [place] [address] Assessment & Plan Assessment/Plan (1) Acute hypoxic respiratory failure: PLAN: Plan The patient is an 79 y/o M w/ PMHx: CKD stage III unclear subtype per GFR trending, Chronic macrocytic anemia, HTN, HLD, Diabetes mellitus type II, BPH with obstructive pathology, Tobacco use who presents to the [facility] ED on 04/03/2025 with history of [...] noted #2: Will admit to ICU, teresa ntained on BIPAP, ABG requested, will consult ICU [...] any pulmonary embolus or aortic dissection, initial [id number] repeat delta troponin 76. Will maintain on [...] 16 minutes. Charges/Coding Visit Charges Inpatient E&M: 96573 Init Hosp L3 Procedures Hospitalists Procedures: 16719 Advncd Care Plan 30 Min 04/03/25 0442 Cosigner Signature (if applicable): CC: Dr. Dyana Hwang MD; Dr. Ryley Jeter MD~ Signed [facility]06-03-2025 Discharge summary [facility] Medical Records Department [address] [place] [address] Emergency Department Summary 04/03/25 MR#: [id number] Acct: [id number] Name: ENOC ARMANDO Rep #:[id number] : 1945 79 From: John Ramirez PCP: Dr. Ryley Jeter MD Status:REG ER Location: ED HPI History of Present Illness Chief Complaint: [facility] Medical History Pneumonia COVID Wears glasses Wears [...] AdvReac Other Verified 04/03/25 00:16 (Glucocorticoids) (steroids) Dmbqtnx-Cwl-Rdj Reductase AdvReac Other Verified 04/03/25 00:16 Inhibitor [...] Consults: internal medicine only sees Dr. Hwang) [facility] Narrative: The patient was initially tachycardic, [...] to ICU This note was generated with [employer] dictation software. It may contain incorrectwords, spelling, [...] 76.4 H Lymph % (Auto) 13.5 L Sawyer % (Auto) 7.0 Eos % (Auto) 1.9 [...] possibly multifocal congestion and/or pneumonia. Reading Location: [place] [address] Discharge Plan Triage Chief Complaint: Shortness of [...] MD [Primary Care Provider] - Print Language: Botswanan What to do if you have Problems For any increased pain, shortness of breath, bleeding, nausea or vomiting, chestpain, or any unexpected problems, contact your Primary Care Provider. Call [facility] ([phone]) or report tothe closest Emergency Room. Call 911 if necessary. 04/03/25 0411 Cosigner Signature (if applicable): CC: Dr. Ryley Jeter MD ~ Signed [facility]06-03-2025 Radiology Diagnostic study note [facility] Imaging Services [address] [place] [address] CTA Chest W/WO Contrast MR#: [id number] Acct: [id number] Name: ENOC ARMANDO Rep #: [id number] : 1945 M 79 From: Darcy Reese MD PCP: Dr. Ryley Jeter MD Status: REG ER Study:CTA Chest W/WO Contrast Date of Exam: 04/03/25 Exam# [id number] Ordering Dr: Mine Brandon DO PROCEDURE: CTA [...] pulmonary embolus or aortic dissection. Reading Location: [place] [address] CC: Dr. Ryley Jeter MD; Dr. John Brandon DO ~ Public Policy Mediator: Signed [facility]06-03-2025 Radiology Diagnostic study note [facility] Imaging Services [address] [place] [address] Chest 1 View (Portable) MR#: [id number] Acct: [id number] Name: ENOC ARMANDO Rep #: [id number] : 1945 M 79 From: Darcy Reese MD PCP: Dr. Ryley Jeter MD Status: REG ER Study:Chest 1 View (Portable) Date of Exam: 04/03/25 Exam# [id number] Ordering Dr: Mine Brandon DO PROCEDURE: CHEST [...] possibly multifocal congestion and/or pneumonia. Reading Location: [place] [address] CC: Dr. Ryley Jeter MD; Dr. John Brandon DO ~ Public Policy Mediator: Signed [facility]05-27-2025 Telephone encounter Note* Telephone Encounter - Ej Guidry MA - 03/27/2025 1:23 PM EDT Called pt's Alice with lab results per Dr. Small. Alice verbalized understanding and had no further questions. [id number] Miscellaneous Notes* Telephone Encounter - Ej Guidry [...] To: Woo Small MD documented in this [id number] Telephone encounter Note* Telephone Encounter - Ej Guidry MA - 03/27/2025 10:50 AM EDT Left voicemail asking for pt to call back to go over lab results per Dr. Small. Given phone number caroline back. [id number] Telephone encounter Note* Telephone Encounter - Ej [...] 7:18 AM EDT To: Woo Small MD [id number] NotePatient ID: Enoc Armando is a 79 [...] being taken. Patient does not see a general utility maintenance repairer. Eye exam is current. Currently taking: No [...] medications, past family his (more content not included)...[facility]05-12-2025 History of Present illness Narrative* Paty Ortega, [facility] - 03/12/2025 1:50 PM EDT Images from [...] being taken. Patient does not see a general utility maintenance repairer. Eye exam is current. Currently taking: No [...] if BG <150 at HS. 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 Had bilat cataract extraction Dr. Lopez. Sees Dr. Browne in [place] every year routinely.Has blurred vision with low [...] Call if BG consistently <70 or >250. [phone] Continue to check blood sugar 3 times [...] CNP 03/12/25 1:21 PM documented in this [id number] NoteGeneral Cardiology New Patient Clinic Consult [facility], Heart & Vascular 03/09/2025 Woo Small MD [address] [place] [address], 3rd Floor Medical Office [facility] [address] Patient: Enoc Armando Date of [...] to be ischemic Coronary 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 (Primary) Patient underwent [...] No follow-ups on file. Woo Small MD, [facility] Non-Invasive Cardiology [facility] P:[phone] F:[phone] History of Present Illness: Enoc Armando is a 79 y.o. man with a past medical history of insulin-dependent diabetes for 30 years, history of tobacco use, recent COVID infection with systolic dysfunction ejection fraction ranging from 35 to 45% who presented initially to [facility] care. He underwent stress testing which showed inferior wall abnormality as well as ejection fraction of 50%. I initially met with him back in January 2024 and he was doing quite well, however he presented in October with symptoms of fatigue, malaise, flash pulmonary edema and hypertensive emergency with reduced ejection fraction at [facility]. 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 Tobacco abuse Past Surgical History: Procedure Laterality Date CATARACT EXT/ECCE Bilateral 12/2012,07/2014 NE CATH PLMT L HRT & ARTS W/NJX & ANGIO IMG S&I N/A 10/27/2024 Procedure: Coronary Angiogram; Surgeon: Elías Rodriguez MD; [facility]; Service: Cardiovascular NE CATH PLMT L HRT & ARTS W/NJX & ANGIO IMG S&I N/A 10/27/2024 Procedure: Left Heart Cath; Surgeon: Elías Rodriguez MD; [facility]; Service: Cardiovascular SKIN CANCER EXCISION 09/2021 L ear Family History Problem Relation Age of Onset Coronary artery disease Father Alzheimer's disease Father Social History Tobacco Use Smoking Statu (more content not included)...[facility] [id number] History of Present illness Narrative* Woo Small MD - 03/09/2025 9:39 AM EDT General Cardiology New Patient Clinic Consult [facility], Heart & Vascular 03/09/2025 Woo Small MD [address] [place] [address] 3rd Floor Medical Office [facility] [id number] Patient: Enoc Armando Date of [...] to be ischemic Coronary 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 (Primary) Patient underwent [...] No follow-ups on file. Woo Small MD, [facility] Non-Invasive Cardiology [facility] P:[phone] F:[phone] History of Present Illness: Enoc Armando is a 79 y.o. man with a past medical history of insulin-dependent diabetes for 30 years, history of tobacco use, recent COVID infection with systolic dysfunction ejection fraction ranging from 35 to 45% who presented initially to [facility]. He underwent stress testing which showedinferior wall abnormality as well as ejection fraction of 50%. I initially met with him back in January 2024 and he was doing quite well, however he presented in October with symptoms of fatigue, malaise, flash pulmonary edema and hypertensive emergency with reduced ejection fraction at [facility]. 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 Tobacco abuse Past Surgical History: Procedure Laterality Date CATARACT EXT/ECCE Bilateral 12/2012,07/2014 NE CATH PLMT L HRT & ARTS W/NJX & ANGIO IMG S&I N/A 10/27/2024 Procedure: Coronary Angiogram; Surgeon: Elías Rodriguez MD; [facility];Service: Cardiovascular NE CATH PLMT L HRT & ARTS W/NJX & ANGIO IMG S&I N/A 10/27/2024 Procedure: Left Heart Cath; Surgeon: Elías Rodriguez MD; [facility]; Service: Cardiovascular SKIN CANCER EXCISION 09/2021 L ear Family History Problem Relation Age of Onset Coronary artery disease Father Alzheimer's disease Father Social History Tobacco Use Smoking Status Every Day Current packs/day: 0.50 Average packs/day: 0.5 packs/day for 61.4 years (30.7 ttl pk-yrs) Types: Cigarettes Start date: 1963 Smokeless Tobacco Never Allergies: Vypvlxh-yhk-qxv reductase inhibitors All of the information has [...] 3 tablet, Rfl: 3 OXYGEN-AIR DELIVERY SYSTEMS MISC, [...] mood and affect, appropriate conversation Cardiovascular Studies: [facility] 2024 Echo 2023 Carotids 2024 Summary 1. [...] arterial duplex was normal Echocardiogram reviewed from [facility], 10/11/2023 moderately decreased ejection fraction [...] history suggesting prior/existing ASCVD documented in this [id number] Instructions* Patient Instructions* Woo Small MD - 03/09/2025 7:56 AM EDT How to Contact your Care Team: Provider: Dr. Woo Small MD Clinic Nurse: FIDEL Moran Clinic MA: VIVI Pagan REFILLS: When in need for refills please call your care team or the office at [phone]. Please include medication name, pharmacy name, and [...] work in 2 weeks documented in this [id number] NoteHMS DISCHARGE SUMMARY -- [facility] Enoc Armando : 1945 Admitted: 02/28/2025 Discharge Date: 03/05/25 PCP Handoff Recommended Outpatient Testing None Results Pending At Discharge None Clinical Summary Enoc Armando is a 79 y.o. male patient of Ryley Jeter MD with history of type I IDDM, hypertension, CAD, diastolic HF, dyslipidemia, COPD, CKD presented to [facility] on 02/28/2025 with shortness of breath. [...] by mouth daily . (more content not included)...[facility]05-04-2025 NoteHMS PROGRESS NOTE Patient Name: Enoc Armando : 1945 Assessment and Plan Enoc Armando is a 79 y.o. male patient of Ryley Jeter MD with history of type I IDDM, hypertension, CAD, diastolic HF, dyslipidemia, COPD, CKD presented to [facility] on 02/28/2025 with shortness of breath. [...] affect AUTHENTICATED BY BERNADETTE PARNELL ON 03/04/2025 11:10:[address] [place] [address] 03-03-2025 NoteHMS PROGRESS NOTE Patient Name: Enoc Armando : 1945 Assessment and Plan Enoc Armando is a 79 y.o. male patient of Ryley Jeter MD with history of type I IDDM, hypertension, CAD, diastolic HF, dyslipidemia, COPD, CKD presented to [facility] on 02/28/2025 with shortness of breath. 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 [...] Final Result by Elías Rodriguez MD (10/27/2024 0961) Review of Systems: The following system(s) were [...] dictation software was used Aparna Browne MSN, GATE GUARD, ANP-C [1] Current Facility-Administered Medications Medication Dose [...] 0-5,000 Units Intravenous Con (more content not included)...[facility]05-02-2025 NoteHMS PROGRESS NOTE Patient Name: Enoc Armando : 1945 Assessment and Plan Enoc Armando is a 79 y.o. male patient of Ryley Jeter MD with history of type I IDDM, hypertension, CAD, diastolic HF, dyslipidemia, COPD, CKD presented to [facility] on 02/28/2025 with shortness of breath. [...] affect AUTHENTICATED BY PEMA DUNBAR, ON 03/02/2025 13:48:04[facility] 03-01-2025 NoteHMS PROGRESS NOTE Patient Name: Enoc Armando : 1945 Assessment and Plan Enoc Armando is a 79 y.o. male patient of Ryley Jeter MD with history of type I IDDM, hypertension, CAD, diastolic HF, dyslipidemia, COPD, CKD presented to [facility] on 02/28/2025 with shortness of breath. [...] affect AUTHENTICATED BY PEMA DUNBAR, ON 03/01/2025 12:52:[address] [place] [address] 02-28-2025 NoteHMS PROGRESS NOTE Patient Name: Enoc Armando : 1945 Assessment and Plan Enoc Armando is a 79 y.o. male patient of Ryley Jeter MD with history of type I IDDM, hypertension, CAD, diastolic HF, dyslipidemia, COPD, CKD presented to [facility] on 02/28/2025 with shortness of breath. [...] affect AUTHENTICATED BY PEMA DUNBAR, ON 02/28/2025 13:04:[address] [place] [address] 02-28-2025 NoteHMS HISTORY AND PHYSICAL -- [facility] Patient Name: Enoc Armando : 1945 MR #: [id number] Admit Date: 02/28/2025 Physicians: Ryley Jeter MD (Family); No ref. provider found (Referring) Enoc Armando is a 79 y.o. male patient of Ryley Jeter MD with history of type I IDDM, hypertension, CAD, diastolic HF, dyslipidemia, COPD, CKD presented to [facility] on 02/28/2025 with shortness of breath. [...] diastolic HF, dyslipidemia, COPD, CKD presented to [facility] on 02/28/2025 with shortness of breath. 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 Tobacco abuse Past Surgical History Past Surgical History: Procedure Laterality Date CATARACT EXT/ECCE Bilateral 12/2012,07/2014 NE CATH PLMT L HRT & ARTS W/NJX & ANGIO IMG S&I N/A 10/27/2024 Procedure: Coronary Angiogram; Surgeon: Elías Rodriguez MD; [facility]; Service: Cardiovascular NE CATH PLMT L HRT & ARTS W/NJX & ANGIO IMG S&I N/A 10/27/2024 Procedure: Left Heart Cath; Surgeon: Elías Rodriguez MD; [facility]; Service: Cardiovascular SKIN CANCER EXCISION 09/2021 L ear Family History Family History Problem Relation Age of Onset Coronary artery disease Father Alzheimer's disease Father Social History Tobacco Use History[1] Social History Substance and Sexual Activity Alcohol Use No Alcohol/week: 0.0 standard drinks of alcohol Social History Substance and Sexual Activity Drug Use No Allergy Information I have reviewed the patient's allergies. Vsbxorc-tdt-vue reductase inhibitors Home Medications Home medications were reviewed. Review Of Systems All relevant systems have been reviewed and are negative except as noted in HPI or below Physical Examination BP (!) 194/62 Pulse 97 Temp 97.8 degrees F (36.6 degrees C) (Oral) Resp (!) 22 Ht 5' 7 Wt 65.8 (more content not included)...[facility]04-28-2025 History of Present illness Narrative* Ayanna De Leon Juanito, DO - 02/26/2025 1:00 PM EDT Subjective [...] DO 02/26/25 1:17 PM [facility] Work Phone: [phone] History of Present illness Narrative* Ej Guidry MA - 02/14/2025 11:02 AM EDT Refaxed letter written on 01/18/[address] Small to [facility]. documented in this [id number] Instructions* Patient Instructions* Luisa Easley RN - 11/14/2024 11:36 AM EST How to Contact your Care Team: Provider: Dr. Woo Small MD Clinic Nurse: FIDEL Moran Clinic MA: VIVI Pagan REFILLS: When in need for refills please call your care team or the office at [phone]. Please include medication name, pharmacy name, and specify 30-day or 90-day supply. Please check with your pharmacy within 24 hours of request for your refill. You must follow up as directed to continue current refills. Thank you! documented in this [id number] History of Present illness Narrative* Woo Small MD - 11/14/2024 10:40 AM EST General Cardiology New Patient Clinic Consult [facility] 11/14/2024 Woo Small MD [address] [place] [phone] Patient: Enoc Armando Date of : 1945 (78 y.o.) PCP: Ryley Jeter MD Date of Service: 11/14/2024 Chief Complaint: Follow-up Assessment and Plan: 1. Coronary 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(Primary) Patient underwent left [...] 6 months (around 05/14/2025). Woo Small MD, [facility] Non-Invasive Cardiology [facility] P:[phone] F:[phone] History of Present Illness: Enoc Armando is a 78 y.o. man with a past medical history of insulin-dependent diabetes for 30 years, history of tobacco use, recent COVID infection with systolic dysfunction ejection fraction ranging from 35 to 45% who presented initially to [facility]. He underwent stress testing which showedinferior wall abnormality as well as ejection fraction of 50%. I initially met with him back in January 2024 and he was doing quite well, however he presented in October with symptoms of fatigue, malaise, flash pulmonary edema and hypertensive emergency with reduced ejection fraction at [facility]. 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 Tobacco abuse Past Surgical History: Procedure Laterality Date CATARACT EXT/ECCE Bilateral 12/2012,07/2014 NE CATH PLMT L HRT & ARTS W/NJX & ANGIO IMG S&I N/A 10/27/2024 Procedure: Coronary Angiogram; Surgeon: Elías Rodriguez MD; [facility];Service: Cardiovascular NE CATH PLMT L HRT & ARTS W/NJX & ANGIO IMG S&I N/A 10/27/2024 Procedure: Left Heart Cath; Surgeon: Elías Rodriguez MD; [facility]; Service: Cardiovascular SKIN CANCER EXCISION 09/2021 L ear Family History Problem Relation Age of Onset Coronary artery disease Father Alzheimer's disease Father Social History Tobacco Use Smoking Status Every Day Current packs/day: 0.50 Average packs/day: 0.5 packs/day for 61.0 years (30.5 ttl pk-yrs) Types: Cigarettes Start date: 1965 Smokeless Tobacco Never Allergies: Iqoqrkz-xis-qac reductase inhibitors All of the information has [...] 90 tablet, Rfl: 3 OXYGEN-AIR DELIVERY SYSTEMS [facility], Inhale 2 L/min See Admin Instructions ., [...] mood and affect, appropriate conversation Cardiovascular Studies: [facility] 2024 Echo 2023 Carotids 2024 Summary 1. [...] arterial duplex was normal Echocardiogram reviewed from [facility], 10/11/2023 moderately decreased ejection fraction [...] history suggesting prior/existing ASCVD documented in this [id number] NoteGeneral Cardiology New Patient Clinic Consult [facility] 11/14/2024 Woo Small MD [address] [place] [phone] Patient: Enoc Armando Date of : 1945 (78 y.o.) PCP: Ryley Jeetr MD Date of Service: 11/14/2024 Chief Complaint: Follow-up Assessment and Plan: 1. Coronary 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 (Primary) Patient underwent [...] 6 months (around 05/14/2025). Woo Small MD, [facility] Non-Invasive Cardiology [facility] P:[phone] F:[phone] History of Present Illness: Enoc Armando is a 78 y.o. man with a past medical history of insulin-dependent diabetes for 30 years, history of tobacco use, recent COVID infection with systolic dysfunction ejection fraction ranging from 35 to 45% who presented initially to [facility] care. He underwent stress testing which showed inferior wall abnormality as well as ejection fraction of 50%. I initially met with him back in January 2024 and he was doing quite well, however he presented in October with symptoms of fatigue, malaise, flash pulmonary edema and hypertensive emergency with reduced ejection fraction at [facility]. 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 Tobacco abuse Past Surgical History: Procedure Laterality Date CATARACT EXT/ECCE Bilateral 12/2012,07/2014 NE CATH PLMT L HRT & ARTS W/NJX & ANGIO IMG S&I N/A 10/27/2024 Procedure: Coronary Angiogram; Surgeon: Elías Rodriguez MD; [facility]; Service: Cardiovascular NE CATH PLMT L HRT & ARTS W/NJX & ANGIO IMG S&I N/A 10/27/2024 Procedure: Left Heart Cath; Surgeon: Elías Rodriguez MD; [facility]; Service: Cardiovascular SKIN CANCER EXCISION 09/2021 L ear Family History Problem Relation Age of Onset Coronary artery disease Father Alzheimer's disease Father Social History Tobacco Use Smoking Status Every Day Current packs/day: 0.50 Average packs/day: 0.5 packs/day for 61.0 years (30.5 ttl pk-yrs) Types: Cigarettes Start date: 1965 Smokeless Tobacco Never Allergies: Zzrmgon-zmv-vvk reductase inhibitors All of the information has been reviewed at today's visit and modified if necessary. Home Medications: Current Outpatient Medications: acetaminophen (Tylenol Arthritis Pain) 650 MG CR tablet, Take 1 (one) tablet (650 mg total) by mouth every 8 (eight) hours as needed for pain ., (more content not included)...[facility] [id number] NotePatient ID: Enoc Armando is a 78 [...] required IV insulin gtt. . Hospitalized in [facility]. Reports URI symptoms with ear lockage. Pertinent [...] being taken. Patient does not see a general utility maintenance repairer. Eye exam is current. Currently taking: No [...] kg (148 lb) 01 (more content not included)...[facility]01-13-2025 History of Present illness Narrative* Paty Ortega CNP - 11/13/2024 11:29 AM EST Images from [...] required IV insulin gtt. . Hospitalized in [facility]. Reports URI symptoms with ear lockage. Pertinent [...] being taken. Patient does not see a general utility maintenance repairer. Eye exam is current. Currently taking: No [...] if BG <150 at HS. 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 Had bilat cataract extraction Dr. Lopez. Sees Dr. Browne in [place] every year routinely.Has blurred vision with low [...] Call if BG consistently <70 or >250. [phone] Continue to check blood sugar 3 times [...] CNP 11/13/24 1:21 PM documented in this [id number] Evaluation + Plan note* Assessment & Plan [...] be performed in conjunction with coronary revascularization. [id number] Miscellaneous Notes* Assessment & Plan Note - [...] conjunction with coronary revascularization. 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[facility] [id number] History of Present illness Narrative* Kristy Parker MD - 11/09/2024 10:36 AM EST OFFICE CONSULTATION NOTE [facility] [address] (11) [facility] [address] [facility] [id number] Physicians: Ryley Jeter MD [...] Carotid artery stenosis CHF (congestive heart failure) ([facility]) CKD (chronic kidney disease) stage 4, GFR 15-29 ml/min (HCC) Diabetes mellitus type 1 (HCC) Emphysema lung (HCC) Hypercholesterolemia Hypertension Kidney stone 2006 Lithotripsy Normocytic anemia PAD (peripheral artery disease) ([facility]) Pneumonia Polyneuropathy Spinal stenosis, lumbar 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 Tobacco abuse Past Surgical History: Procedure Laterality Date CATARACT EXT/ECCE Bilateral 12/2012,07/2014 NE CATH PLMT L HRT & ARTS W/NJX & ANGIO IMG S&I N/A 10/27/2024 Procedure: Coronary Angiogram; Surgeon: Elías Rodriguez MD; [facility];Service: Cardiovascular NE CATH PLMT L HRT & ARTS W/NJX & ANGIO IMG S&I N/A 10/27/2024 Procedure: Left Heart Cath; Surgeon: Elías Rodriguez MD; [facility]; Service: Cardiovascular SKIN CANCER EXCISION 09/2021 L [...] Reported on 11/09/2024 .) Allergies Allergen Reactions Qxzelej-Dui-Xrl Reductase Inhibitors Muscle cramps ROS Negative aside [...] Abnormal ECG Confirmed by Ginger Lorenz MD ([id number]) on 10/30/2024 11:27:42 AM Cardiac Catheterization [...] 11/27/2023 Kristy Parker MD documented in this [id number] Instructions* Patient Instructions* Yesenia Mcdaniel MA - 11/09/2024 10:32 AM EST How to contact your Care Team: Provider: MD Georgia Ludwig CNP Nyoka Fauser, CNP Jill Bender, PA Nurse: Jeannie Rubio RN To reschedule office appointments call Scheduling [phone] In case of an emergency please call 911. When in need of refills please call the phone number listed above. Please include medication name, pharmacy name and specify 30 or 90 day supply Please check with your pharmacy within 24 hours of your request for refill. You must follow up as directed to continue current refills. Thank you! documented in this [id number] Amanda Armando [phone] @[email or web address]@ Brock Groves MD 11/07/24 Room/bed info not [...] right heart failure which required admission to [facility] for hypertensive emergency and acute flash [...] artery stenosis - CHF (congestive heart failure) ([facility]) - CKD (chronic kidney disease) stage 4, GFR 15-29 ml/min ([facility]) - Diabetes mellitus type 1 ([facility]) - Emphysema lung ([facility]) - Hypercholesterolemia - Hypertension - Kidney stone 2006 Lithotripsy - Normocytic anemia - PAD (peripheral artery disease) ([facility]) - Pneumonia - Polyneuropathy - Spinal stenosis, lumbar - 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 - Tobacco abuse Past Surgical History: Procedure Laterality Date - CATARACT EXT/ECCE Bilateral 12/2012,07/2014 - NE CATH PLMT L HRT & ARTS W/NJX & ANGIO IMG S&I N/A 10/27/2024 Procedure: Coronary Angiogram; Surgeon: Elías Rodriguez MD; Location: [facility]; Service: Cardiovascular - NE CATH PLTX L HRT & ARTS W/NJX & ANGIO IMG S&I N/A 10/27/2024 Procedure: Left Heart Cath; Surgeon: Elías Rodriguez MD; [facility]; Service: Cardiovascular - SKIN CANCER EXCISION 09/2021 [...] 3 - insulin g (more content not included)...[facility]01-07-2025 History of Present illness Narrative* Brock Groves MD - 11/07/2024 10:36 AM EST Enoc Armando [id number] @[email or web address]@ Brock Groves MD 11/07/24 Room/bed info not found Consultation No ref. provider found No chief complaint on file. History of Present Illness Mr. 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 90 tablet 3 OXYGEN-AIR DELIVERY SYSTEMS [facility] Inhale 2 L/min See Admin Instructions . [...] file prior to visit. Allergies Allergen Reactions Nftzffq-Gla-Iwi Reductase Inhibitors Muscle cramps Family History Problem [...] Resource Strain: Low Risk (10/11/2023) [facility] Overall Financial Resource Strain (CARDIA) Difficulty [...] Addressed This Visit None documented in this [id number] Progress note* Quick Note - Karthik Sandoval RN - 10/28/2024 2:53 PM EST Patient blood sugar at 1:27pm measured 288. Blood sugar at this time measured 321. [facility] ordered to give 8 units of lispro at this time and to instruct patient to recheck blood sugar in a couple hours at home. Patient IV removed and discharge education provided at this time. Patient understands and verbalizes he will check blood sugar when home and to follow medication regimen after discharge [id number] Miscellaneous Notes* Quick Note - Karthik Sandoval RN - 10/28/2024 2:53 PM EST Patient blood sugar at 1:27pm measured 288. Blood sugar at this time measured 321. [facility] ordered to give 8 units of lispro [...] but appreciative with provided care. Bed alarm hand almond blancher light in reach. * Plan of Care [...] potasium and elevated glucose. documented in this [id number] NoteHMS DISCHARGE SUMMARY -- [facility] Enoc Armando Admitted: 10/27/2024 Discharge Date: 10/28/24 PCP Handoff Recommended Outpatient Testing none Results Pending At Discharge none Clinical Summary Enoc Armando is a 78 y.o. male patient of Ryley Jeter MD with history of coronary artery disease, type 1 diabetes, diastolic CHF, hypertension dyslipidemia COPD and lumbar spinal stenosis with chronic low back pain presented to [facility] on 10/27/2024 for an elective left [...] . Physician(s) Follow Up: Brock Groves MD [address] [place] [id number] Follow up on 11/07/2024 Consultation for surgivcal [...] PM AUTHENTICATED BY NIDIA GARAY, ON 10/28/2024 14:19:[address] [place] [address] 10-28-2024 Hospital course Narrative* Nidia Garay MD - 10/28/2024 2:16 PM EST [facility] [place] -- [facility] Enoc Armando Admitted: 10/27/2024 Discharge Date: 10/28/24 PCP Handoff Recommended Outpatient Testing none Results Pending At Discharge none Clinical Summary Enoc Armando is a 78 y.o. male patient of Ryley Jeter MD with history of coronary artery disease, type 1 diabetes, diastolic CHF, hypertension dyslipidemia COPD and lumbar spinal stenosis withchronic low back pain presented to [facility] on 10/27/2024 for an elective left [...] . Physician(s) Follow Up: Brock Groves MD [address] [place] [address] [id number] Follow up on 11/07/2024 Consultation for surgivcal [...] on 10/28/24, 2:16 PM documented in this [id number] NoteDaily Progress Note Assessment/Plan: Principal Problem: Hyperglycemia [...] Garay.. AUTHENTICATED BY ZOILA POLLARD, ON 10/28/2024 14:16:[address] [place] [address] 10-28-2024 History of Present illness Narrative* Zoila [...] Garay MD - 10/28/2024 11:36 AM EST [facility] PROGRESS NOTE Assessment and Plan Enoc Armando is a 78 y.o. male patient of Ryley Jeter MD with history of coronary artery disease, type 1 diabetes, diastolic CHF, hypertension dyslipidemia COPD and lumbar spinal stenosis withchronic low back pain presented to [facility] on 10/27/2024 for an elective left [...] normal mood and affect documented in this [id number] NoteHMS PROGRESS NOTE Assessment and Plan Enoc Armando is a 78 y.o. male patient of Ryley Jeter MD with history of coronary artery disease, type 1 diabetes, diastolic CHF, hypertension dyslipidemia COPD and lumbar spinal stenosis with chronic low back pain presented to [facility] on 10/27/2024 for an elective left [...] affect AUTHENTICATED BY NIDIA GARAY, ON 10/28/2024 11:43:[address] [place] [address] 10-28-2024 Plan of care note* Plan of Care - Karthik Sandoval RN - 10/28/2024 9:11 AM EST Problem: Actual or potential alteration in health Goal: Absence of healthcare acquired conditions Outcome: Partially Met Goal: Knowledge of Interdisciplinary Plan of Care Outcome: Partially Met Goal: Knowledge of Enviroment Outcome: Partially Met Problem: Pressure Injury, Risk of Goal: Absence of pressure injury Outcome: Partially Met [address]Wrhwzc94-33-6282 Progress note* Quick Note - Julia Chan RN - 10/28/2024 8:05 AM EST Patient stands at edge of bed to void and request to go to restroom. Patient does not want bedrest orders that are in place at this time. Patient is anxious for dc to home but appreciative with provided care. Bed alarm hand almond blancher light in reach. [address]AaekVzplmd49-89-7159 Plan of care note* Plan of Care [...] continue to monitor and report any concerns. [address]TakvHigyum10-85-0404 Progress note* Quick Note - Julia Chan [...] drip infusing and started at 6.6 units/hr. [address]WubsTpyzoi84-86-9002 Progress note* Quick Note - Julia Chan [...] excluding ice chips and sips with meds [id number] Progress note* Quick Note - Julia Chan RN - 10/27/2024 10:18 PM EST This RN received report from observation unit nurse via phone. [id number] Plan of care note* Plan of Care - Carlita Roth RN - 10/27/2024 9:42 PM EST Problem: Actual or potential alteration in health Goal: Absence of healthcare acquired conditions Outcome: Partially Met Goal: Knowledge of Interdisciplinary Plan of Care Outcome: Partially Met Goal: Knowledge of Enviroment Outcome: Partially Met [id number] History and physical note* Cintia Benitez MD - 10/27/2024 8:26 PM EST [facility] [place] AND PHYSICAL -- [facility] Patient Name: Enoc Armando : 1945 MR #: [id number] Admit Date: 10/27/2024 Physicians: Ryley Jeter MD (Family); No ref. provider found (Referring) Enoc Armando is a 78 y.o. male patient of Ryley Jeter MD with history of coronary artery disease, type 1 diabetes, diastolic CHF, hypertension dyslipidemia COPD and lumbar spinal stenosis withchronic low back pain presented to [facility] on 10/27/2024 for an elective left [...] with chronic low back pain presented to [facility] on 10/27/2024 for an elective left [...] Information I have reviewed the patient's allergies. Wpfsmxb-mkf-jii reductase inhibitors Home Medications Home medications were [...] normal coloration Psych: normal mood and affect [id number] NoteHMS HISTORY AND PHYSICAL -- [facility] Patient Name: Enoc Armando : 1945 MR #: [id number] Admit Date: 10/27/2024 Physicians: Ryley Jeter MD (Family); No ref. provider found (Referring) Enoc Armando is a 78 y.o. male patient of Ryley Jeter MD with history of coronary artery disease, type 1 diabetes, diastolic CHF, hypertension dyslipidemia COPD and lumbar spinal stenosis with chronic low back pain presented to [facility] on 10/27/2024 for an elective left [...] is a 78 y.o. male patient of Ryely Jeter MD with history of coronary artery disease, type 1 diabetes, diastolic CHF, hypertension dyslipidemia COPD and lumbar spinal stenosis with chronic low back pain presented to [facility] on 10/27/2024 for an elective left [...] Information I have reviewed the patient's allergies. Skacrkq-efu-rbj reductase inhibitors Home Medications Home medications were [...] Skin: normal coloration Psych: (more content not included)...[facility]12-27-2024 History and physical note* Cintia Benitez MD - 10/27/2024 8:26 PM EST [facility] AND PHYSICAL -- [facility] Patient Name: Enoc Armando : 1945 [facility] [id number] [id number] Admit Date: 10/27/2024 Physicians: Ryley Jeter MD (Family); No ref. provider found (Referring) Enoc Armando is a 78 y.o. male patient of Ryley Jeter MD with history of coronary artery disease, type 1 diabetes, diastolic CHF, hypertension dyslipidemia COPD and lumbar spinal stenosis withchronic low back pain presented to [facility] on 10/27/2024 for an elective left [...] with chronic low back pain presented to [facility] on 10/27/2024 for an elective left [...] Information I have reviewed the patient's allergies. Lgeljbu-ksa-sxv reductase inhibitors Home Medications Home medications were [...] Enoc Armando Admit Date: 12261205 MR #: [id number] : 1945 The H&P has been reviewed [...] need for emergency surgery, need for pacemaker, NV, stroke, or cardiac arrest/. Patient voiced understanding and agreed to proceed. Sedation Plan: Moderate ASA Classification: ASA 3: A patient with severe systemic disease. Mallampati Score: Class III: Only the soft palate is visible Elías Rodriguez MD 10/27/2024 8:17 AM Source Note - Woo Small MD - 10/18/2024 1:20 PM EST General Cardiology New Patient Clinic Consult [facility] 10/18/2024 Woo Small MD [address] [place] [address] 3rd Floor Medical Office [facility] [address] Patient: Enoc Armando Date of [...] No follow-ups on file. Woo Small MD, [facility] Non-Invasive Cardiology [facility] P:[phone] F:[phone] History of Present Illness: Enoc Armando is a 78 y.o. man with a past medical history of insulin-dependent diabetes for 30 years, history of tobacco use, recent COVID infection with systolic dysfunction ejection fraction ranging from 35 to 45% who presented initially to [facility] care. He underwent stress testing which showedinferior wall abnormality as well as ejection fraction of 50%. I initially met with him back in January and he was doing quite well, however today he presents with progressive symptoms of fatigue, malaise, and a recent heart failure exacerbation at [facility] for hypertensive emergency and acute flash [...] Cigarettes Smokeless Tobacco Never Allergies: Prednisone and Ibobhpr-daj-daz reductase inhibitors All of the information has [...] 90 tablet, Rfl: 3 [facility]IR [facility], Inhale 2 L/min See Admin Instructions ., [...] 50%, rest LVEF 51%. Echocardiogram reviewed from [facility], 10/11/2023 moderately decreased ejection fraction [...] history suggesting prior/existing ASCVD documented in this [id number] Progress note* Quick Note - Zoila Pollard [...] stage IV kidney disease, BUN/creatinine: 92/2.60 respectively. [id number] Progress note* Quick Note - Mary Willis RN - 10/27/2024 12:[address] Rodriguez notified and at bedside to speak to patient r/g Critical potasium and elevated glucose. [id number] Attending History and physical note* Elías Rodriguez MD - 10/27/2024 8:17 AM EST INTERVAL HISTORY AND PHYSICAL Patient Name: Enoc Armando Admit Date: 12261205 MR #: [id number] : 1945 The H&P has been reviewed [...] need for emergency surgery, need for pacemaker, NV, stroke, or cardiac arrest/. Patient voiced understanding and agreed to proceed. Sedation Plan: Moderate ASA Classification: ASA 3: A patient with severe systemic disease. Mallampati Score: Class III: Only the soft palate is visible Elías Rodriguez MD 10/27/2024 8:17 AM Source Note - Woo Small MD - 10/18/2024 1:20 PM EST General Cardiology New Patient Clinic Consult [facility] 10/18/2024 Woo Small MD [address] [place] [address] 3rd Floor Medical Office [facility] [address] Patient: Enoc Armando Date of [...] No follow-ups on file. Woo Small MD, [facility] Non-Invasive Cardiology [facility] P:[phone] F:[phone] History of Present Illness: Enoc Armando is a 78 y.o. man with a past medical history of insulin-dependent diabetes for 30 years, history of tobacco use, recent COVID infection with systolic dysfunction ejection fraction ranging from 35 to 45% who presented initially to [facility] care. He underwent stress testing which showedinferior wall abnormality as well as ejection fraction of 50%. I initially met with him back in January and he was doing quite well, however today he presents with progressive symptoms of fatigue, malaise, and a recent heart failure exacerbation at [facility] for hypertensive emergency and acute flash [...] Cigarettes Smokeless Tobacco Never Allergies: Prednisone and Unpfizb-wjh-kdh reductase inhibitors All of the information has [...] 90 tablet, Rfl: 3 [facility]IR [employer] [facility], Inhale 2 L/min See Admin Instructions ., [...] 50%, rest LVEF 51%. Echocardiogram reviewed from [facility], 10/11/2023 moderately decreased ejection fraction [...] has a medical history suggesting prior/existing ASCVD [facility] Work Phone: 1(771) 659-313812-27-2024 Hospital Discharge instructions* Discharge Instructions* Sonya King RN - 10/27/2024 8:16 AM EST [facility] Post Cardiac Catheterization Discharge Instructions Site Care Leave Bandage in place the night of your catheterization. Watch for any bleeding or oozing from thesite. If this occurs, lie flat and place direct pressure on the bandage for 20 minutes. If bleedingreoccurs call [facility]. For groins, remove your bandage [...] shower 24 hours after the procedure. Call [facility] at [phone] if you notice any of the following: [...] need of prescription assistance, please notify the [facility] nurse or call the office. If you were prescribed Plavix (clopidogrel), Effient (prasugrel), or Brilinta (ticagrelar) after your procedure, DO NOT STOP taking this medication unless told to do so by your [facility] metal fabricator apprentice. Follow up appointments, tests or procedures will be on your discharge paperwork under What's next. Please call [facility] at [phone] to reschedule any appointments if needed or if you have any questions or concerns. Thank you! documented in this [id number] Instructions* Patient Instructions* Luisa Easley RN - 10/18/2024 1:27 PM EST How to Contact your Care Team: Provider: Dr. Woo Small MD Clinic Nurse: Luisa Vega RN Clinic MA: Ej Guidry MA REFILLS: When in need for refills please call your care team or the office at [phone]. Please include medication name, pharmacy name, and specify 30-day or 90-day supply. Please check with your pharmacy within 24 hours of request for your refill. You must follow up as directed to continue current refills. Thank you! Heart Catheterization Date of your procedure: 10/27/2024 at 8:00am Please arrive at [facility]. Please park in the garage next to the medical office building. If needed, information technology advisor parking is available at the front entrance [...] questions or concerns please contact us at [phone]. documented in this [id number] History of Present illness Narrative* Woo Small MD - 10/18/2024 1:20 PM EST General Cardiology New Patient Clinic Consult [facility] 10/18/2024 Woo Small MD [address] [place] [address], 3rd Floor Medical Office [facility] [address] Patient: Enoc Armando Date of [...] No follow-ups on file. Woo Small MD, [facility] Non-Invasive Cardiology [facility] P:[phone] F:[phone] History of Present Illness: Enoc Armando is a 78 y.o. man with a past medical history of insulin-dependent diabetes for 30 years, history of tobacco use, recent COVID infection with systolic dysfunction ejection fraction ranging from 35 to 45% who presented initially to [facility] care. He underwent stress testing which showedinferior wall abnormality as well as ejection fraction of 50%. I initially met with him back in January and he was doing quite well, however today he presents with progressive symptoms of fatigue, malaise, and a recent heart failure exacerbation at [facility] for hypertensive emergency and acute flash [...] Cigarettes Smokeless Tobacco Never Allergies: Prednisone and Wkisexo-scq-rqv reductase inhibitors All of the information has [...] 50%, rest LVEF 51%. Echocardiogram reviewed from [facility], 10/11/2023 moderately decreased ejection fraction [...] history suggesting prior/existing ASCVD documented in this [id number] NoteGeneral Cardiology New Patient Clinic Consult [facility] 10/18/2024 Woo Small MD [address] [facility], 3rd Floor Medical Office [facility] [address] Patient: Enoc Armando Date of [...] No follow-ups on file. Woo Small MD, [facility] Non-Invasive Cardiology [facility] P:[phone] F:[phone] History of Present Illness: Enoc Armando is [...] and a recent heart failure exacerbation at [facility] for hypertensive emergency and acute flash [...] Cigarettes Smokeless Tobacco Never Allergies: Prednisone and Shvvmno-qsf-kce reductase inhibitors All of the information has [...] capsule, Take 1 ( (more content not included)...[facility]12-06-2024 Telephone encounter Note* Telephone Encounter - Luisa Easley RN - 10/06/2024 2:45 PM EST Spoke with pt and reviewed Dr. Small's comments and suggestions. Pt was agreeable to starting Imdur 30mg daily and confirmed appt with Dr. Small on 10/18 at 1:20pm in the [place] location. Pt expressedappreciation and understanding. [id number] Telephone encounter Note* Telephone Encounter - Luisa [...] are involved abnormalities can be difficult to chicken picker Would he be okay coming in [...] Woo Small MD We received everything from [place] on him-I know we were waiting on this to see about changing things up ----- Message ----- From: Ej Guidry MA Sent: 10/04/2024 2:01 PM EST To: Luisa Easley RN Records from [facility] [id number] Miscellaneous Notes* Telephone Encounter - Luisa Easley RN - 10/06/2024 2:45 PM EST Spoke with pt and reviewed Dr. Small's comments and suggestions. Pt was agreeable to starting Imdur 30mg daily and confirmed appt with Dr. Small on 10/18 at 1:20pm in the [place] location. Pt expressedappreciation and understanding. * Telephone Encounter - Luisa Easley RN - 10/06/2024 2:45 PM EST ----- Message from sent at 10/05/2024 4:33 PM EST ----- [...] are involved abnormalities can be difficult to chicken picker Would he be okay coming in [...] EST To: Luisa Easley RN Records from [facility] documented in this [id number] [facility] 09-12-2024 [facility]10-29-2024 History of Present illness Narrative* Ayanna Albert DO - 08/29/2024 1:00 PM EDT Subjective [...] DO 08/29/24 1:12 PM documented in this [facility] Work Phone: 1(322) 690-727409-20-2024 NotePatient ID: Enoc Armando is a 78 [...] High flow O2, C-pap, etc. Hospitalized in [facility] with CHF, pleural effusions and elevated troponin. [...] being taken. Patient does not see a general utility maintenance repairer. Eye exam is current. Currently taking: No [...] by mouth daily . [facility]IR [facility], Inhale 2 L/min See Admin Instructions . [...] Neurological: Mental Status: He (more content not included)...[facility]09-20-2024 History of Present illness Narrative* Paty Ortega, DRAPERY AND UPHOLSTERY MEASURER - 07/21/2024 1:58 PM EDT Images from [...] High flow O2, C-pap, etc. Hospitalized in [facility] with CHF, pleural effusions and elevated troponin. [...] being taken. Patient does not see a general utility maintenance repairer. Eye exam is current. Currently taking: No [...] by mouth daily . [facility], Inhale 2 L/min See Admin Instructions . [...] if BG <150 at HS. 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 Had bilat cataract extraction Dr. Lopez. Sees Dr. Browne in [place] every year routinely.Has blurred vision with low [...] Call if BG consistently <70 or >250. [phone] Continue to check blood sugar 3 times [...] CNP 07/21/24 1:21 PM documented in this [id number] Instructions* Patient Instructions* Luisa Easley RN - 04/24/2024 10:08 AM EDT How to Contact your Care Team: Provider: Dr. Woo Small MD Clinic Nurse: Luisa Ealsey RN Clinic MA: Ej Guidry MA REFILLS: When in need for refills please call your care team or the office at [phone]. Please include medication name, pharmacy name, and specify 30-day or 90-day supply. Please check with your pharmacy within 24 hours of request for your refill. You must follow up as directed to continue current refills. Thank you! documented in this [id number] History of Present illness Narrative* Woo Small MD - 04/24/2024 9:40 AM EDT General Cardiology New Patient Clinic Consult [facility] 04/24/2024 Woo Small MD [address] [place] [phone] Patient: Enoc Armando Date of : 1945 [...] 1 year (around 04/24/2025). Woo Small MD, [facility] Non-Invasive Cardiology [facility] P:[phone] F:[phone] History of Present Illness: Enoc Armando is a 78 y.o. man with a past medical history of insulin-dependent diabetes for 30 years, history of tobacco use, recent COVID infection with systolic dysfunction ejection fraction ranging from 35 to 45% who presented initially to [facility] care. He underwent stress testing [...] Cigarettes Smokeless Tobacco Never Allergies: Prednisone and Satdfnx-pxa-oam reductase inhibitors All of the information has [...] 90 tablet, Rfl: 3 [facility]GEN[facility]IR [facility]IV[facility], Inhale 2 L/min See Admin Instructions ., [...] 50%, rest LVEF 51%. Echocardiogram reviewed from [facility], 10/11/2023 moderately decreased ejection fraction [...] BILITOT 0.7 11/27/2023 The ASCVD Risk score ([place] DK, et al., 2019) failed to calculate for the following reasons: The 2019 ASCVD risk score is only valid for ages 40 to 79 The patient has a prior NV or stroke diagnosis documented in this [id number] Telephone encounter Note* Telephone Encounter - Ej Guidry MA - 03/28/2024 1:53 PM EDT Pt was last seen on 01/14/24 by Aylin Lacy CNP. Refills appropriate. Routing to Dr. Garay as Dr. Small is out of the office. [id number] Miscellaneous Notes* Telephone Encounter - Ej Guidry MA - 03/28/2024 1:53 PM EDT Pt was last seen on 01/14/24 by Aylin Lacy CNP. Refills appropriate. Routing to Dr. Garay as Dr. Small is out of the office. documented in this [id number] Evaluation + Plan note* Assessment & Plan Note - CULLEN Guzmán DNP - 02/24/2024 2:39 PM EDT Associated Problem(s): CKD (chronic kidney disease) Creatinine is stable at 1.92 and stable, stage IIIb, blood pressure is well controlled, diabetes well controlled, not using NSAIDs. [facility] Work Phone: 1(106) 878-870404-25-2024 Miscellaneous Notes* Assessment & Plan Note - [...] and metoprolol, no changes documented in this [facility] Work Phone: 1(841) 612-328004-25-2024 Evaluation + Plan note* Assessment & Plan Note - CULLEN Guzmán DNP - 02/24/2024 2:38 PM EDTAssociated Problem(s): Type 1 diabetes mellitus with diabetic neuropathy (Multi) Follows with endocrinology, is not to use SGLT2 due to Type I diabetes [facility] Work Phone: 1(682) 174-829504-25-2024 Evaluation + Plan note* Assessment & Plan Note - CULLEN Guzmán DNP - 02/24/2024 2:38 PM EDTAssociated Problem(s): Essential hypertension BP is well controlled on lisinopril and metoprolol, no changes [facility] Work Phone: 1(950) 981-378904-25-2024 History of Present illness Narrative* CULLEN Guzmán [...] DNP 02/24/24 1:50 PM documented in this [facility] Work Phone: 1(667) 731-896504-19-2024 History of Present illness Narrative* Paty Ortega [...] High flow O2, C-pap, etc. Hospitalized in [facility] with CHF, pleural effusions and elevated troponin. [...] being taken. Patient does not see a general utility maintenance repairer. Eye exam is current. Currently taking: No [...] if BG <150 at HS. 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 Had bilat cataract extraction Dr. Lopez. Sees Dr. Browne in [place] every year routinely.Has blurred vision with low [...] Call if BG consistently <70 or >250. [phone] Continue to check blood sugar 3 times [...] CNP 02/18/24 1:21 PM documented in this [id number] Instructions* Patient Instructions* Robert Dominguez RN - 01/14/2024 11:46 AM EDT How to Contact your Care Team: Provider: Dr. Woo Small MD Clinic Nurse: Luisa Easley RN REFILLS: When in need for refills please call your care team or the office at [phone]. Please include medication name, pharmacy name, and specify 30-day or 90-day supply. Please check with your pharmacy within 24 hours of request for your refill. You must follow up as directed to continue current refills. Thank you! documented in this [id number] History of Present illness Narrative* Aylin Lacy CNP - 01/14/2024 11:00 AM EDT General Cardiology Returning Patient Clinic Visit [facility], Heart & Vascular 01/14/2024 Aylin Lacy CNP [address] [facility] Medical Office [facility] [address] Patient: Enoc Armando Date of : 1945 (78 y.o.) Biotechnician: Dr. Small PCP: Ryley Jeter MD Chief Complaint: Transitional care appointment Date of Service: 01/14/2024 Assessment and Plan: Systolic dysfunction with recovery of ejection fraction -Euvolemic on exam -Continue lisinopril 5 mg daily -Continue metoprolol succinate 25 mg daily -Continue Lasix 20 mg twice daily -He is following with nephrology in [place]. He has an upcoming appointment and labs [...] Next scheduled follow up. Aylin Lacy, MSN, GATE GUARD, NURSE REVIEWER-C, FUR STYLIST, ECG- General Cardiology [facility] History of Present Illness: Enoc Armando is a 78 y.o. man with a past medical history of hypertension, hyperlipidemia, insulin-dependent diabetes mellitus, CKD, smoker, emphysema, chronic hypoxemia and systolic dysfunction. He presents today for transitional care appointment. He was last seen in our office on 10/21/2023 by his primary metal fabricator apprentice Dr. Small. Recent COVID infection at the end of last year and patient was notedto have systolic dysfunction with a ejection fraction ranging from 35 to 45%. He had left ventricular recovery noted on most recent echocardiogram from 11/30/2023, LVEF 63%. He presented to the [facility] on 11/27/2023 with complaints of respiratory [...] 25.50 Types: Cigarettes Smokeless Tobacco Never Allergies: Uqqfihk-xsc-sku reductase inhibitors All of the above information [...] 15 mL, Rfl: 11 OXYGEN-AIR DELIVERY SYSTEMS MISC, Inhale 2 L/min [...] to 77 The patient has a prior NV or stroke diagnosis documented in this [id number] Telephone encounter Note* Telephone Encounter - Ej [...] to Dr. Small for her to sign. [id number] Miscellaneous Notes* Telephone Encounter - Ej Guidry [...] for her to sign. documented in this [id number] Miscellaneous Notes* Quick Note - Ellie Aguilar CNP - 12/01/2023 11:20 AM EST [id number] ENCOUNTER FOR HOME MEDICAL EQUIPMENT PATIENT: Enoc Armando : 1945 Statement of Care: I certify that Enoc Armando is under my care and that I, a Nurse Practitioner, Physician's Tableau Architect, or Resident working with me, had a yzyz-le-iivq encounter with this patient yesterday to evaluate and discuss the need for home medical equipment. I certify that based on the findings of this evaluation, which included but was not limited to the tjbh-ge-gfrq requirements, the following home medical equipment is [...] no longer in ICU bed. On 2lpm FL. Critical care will sign off. * CDI Query - Cintia Benitez MD - 11/29/2023 6:23 AM EST Query 2 of 2 Noted 11/27 [facility] documentation of CKD Clinical Indicators: Test [...] ESRD Thank you, Aubree CRAWFORD,RN Clinical Documentation registered public surveyor After business hours you may contact Ebony Dayana at [phone] (Weekdays until 10 PM and weekends 8 AM -10 PM) * CDI Query - Cintia Benitez MD - 11/29/2023 6:14 AM EST Noted 11/27 [facility] documentation of heart failure. Clinical Indicators: 11/27 [facility]: CHF....-Continue IV Lasix, check I's and [...] crackles at base Test results: 11/27: BNP: 09790 Please specify the acuity and type of heart failure in the progress notes. For Example: Acute on chronic systolic CHF POA Chronic systolic CHF, no acute exacerbation Other (please specify) Thank you, Aubree CRAWFORD,RN Clinical Documentation Sheriff'S Officer After business hours you may contact Ebony Link at [phone] (Weekdays until 10 PM and weekends 8 [...] of pressure ulcer Outcome: Met * Quick Mary - Zelalem Lo RN - 11/27/2023 10:[address] Vargas about orders regarding insulin gtt. No dextrose orders when BG reaches specified limit in his protocol. Waiting for new orders. Will continue to assess patient and treat accordingly. * Quick Mary - Priscilla Aranda RD - 11/27/2023 8:11 AM EST Consult for DM education. Pt NPO and on bipap. Education not appropriate currently. Priscilla Aranda RDN, LD Dietitian's Office [phone] * Quick Note - Carlita Lazaro RRT [...] - Brief Progress Note PERMANENT 11/27/2023 04:[address] [facility] CCU ENOC ARMANDO Date of Service 11/27/2023 04:43 HPI/Events of [...] adjustment * Quick Note - Carlita Lazaro, SUPERVISING PRODUCER - 11/27/2023 4:20 AM EST Called by RN due to patient SpO2 87% on 2L. RN states she increased to 4L and patient was 90%. Wentto patient room and patient was diaphoretic and with increased WOB with RR at 37. Patient placed onbipap and Norma Geiger MANAGER PLANT notified. Patient was then transferred to MICU * Quick Note - Julia Chan RN - 11/27/2023 3:59 AM EST Patient c/o SOB. Repositioned up in bed with Assist of psa. O2 increased from 2 LNC to 4 LNC. Called Karla delgado RT due to o2 sats 87- 90 % on 4 Lnc.and informed that patient c/o SOB. Karla RT immediately came to room and replaced on bipap. MANAGER PLANT came to see patient and request patient [...] VBG reported to Norma Geiger CNP * John Hernandez - Julia Chan RN - 11/27/2023 2:42 AM EST EMT TRANSPORTER SET HEPARIN DRIP ON Alaris pump at 8 ml per hr. * Quick Note - Julia Chan RN - 11/27/2023 2:31 AM EST Informed RT that patient has arrived from [facility]. Attempt to let dr Pereira aware of arrival from [facility] no answer will leave message. documented in this [id number] Hospital course Narrative* Ellie Aguilar CNP - 12/01/2023 11:03 AM EST [facility] DISCHARGE SUMMARY -- [facility] Enoc Armando Admitted: 11/27/2023 Discharge Date: 12/01/23 PCP Handoff Recommended Outpatient Testing None Results Pending At Discharge None Clinical Summary Enoc Armando is a 77 y.o. male patient of Ryley Jeter MD with history of HTN, HLD, DM Type I, CKD, COPD, chronic hypoxemic respiratory failure who presented to [facility] with respiratory distress . Severe Sepsis [...] lisinopriL 5 MG tablet Commonly known as: PRINIVILPALMIRASTRIL What changed: Another medication with the same [...] Up: Ryley Jeter MD [address] [facility] [id number] Follow up Please call to schedule a [...] on 12/01/23, 11:10 AM documented in this [id number] History of Present illness Narrative* Jody Hammonds, VIDEO TECHNICIAN - 12/01/2023 10:20 AM EST Physical Therapy [...] Static: Supervision, without UE support, with device Digital Data Analyst - Standing Static: wheeled walker Loss of Balance- Standing Static: (none) Standing Balance - Dynamic: Stand by assist Digital Data Analyst - Standing Dynamic: wheeled walker Loss of Balance- Standing Dynamic: (none) Bed Mobility Supine to Sit: Contact guard assist, Head of bed elevated Digital Data Analyst: (none) Skilled Intervention Provided: verbal cues, monitoring patient response with activity, environmental setup/modification, facilitation, provided step by step instructions For: efficient movement, safety during functional tasks, sequencing of movement Resulting in: improved activity tolerance, improved functional independence, improved performance, improved safety, increased upright tolerance for functional tasks Transfers Sit to Stand: Stand by assist Digital Data Analyst: BUE, wheeled walker Additional Transfer Trial 2: Yes Sit to Stand Trial 2: Stand by assist Digital Data Analyst Trial 2: wheeled walker, BUE Skilled Intervention [...] O2;) Prior Level of Function Level of [place] - Transfers/Ambulation/Mobility: Independent with functional transfers, Independent with household ambulation, Independent with community ambulation (no AD for in home ambulation, intermitant use of cane in community for longer distances) Level of [place] - ADLs: Independent Level of [place] - Homemaking: ( takes care of all [...] Enoc Armando Admit Date: 11/27/2023 MR #: [id number] : 1945 Current location: [facility] Physicians: Ryley Jeter MD (Family); Britton [...] NST in a week, spoke with his metal fabricator apprentice Dr. Small, who will arrange to have [...] CHF, hypertension, hyperlipidemia, emphysema who presented to [facility] emergency department with a complaint of shortness [...] CO2 17. He was transferred to [facility] for further evaluation and treatment. At [...] platelet count 220,000 Allergies: Allergies Allergen Reactions Zfvdmpw-Ksz-Ryc Reductase Inhibitors Muscle cramps Home Medications: Outpatient [...] Enoc Armando Admit Date: 1261205 MR #: [id number] : 1945 Physicians: Ryley Jeter MD (Family); Ger Bansal DO (Referring) Assessment: Patient with 1. Respiratory failure 2. Suspicion for pneumonia 3. Possible congestive heart failure 4. Non-ST elevation NV. 5. History of COVID-19 infection. Plan: Continue patient on current therapy Continue patient on IV azithromycin Continue on ceftriaxone From [facility] 5 weeks ago patient was status [...] the patient is stable. Previous x-ray at [facility] had shown congestive changes and edema on [...] 97.9 F (36.6 C) SpO2: 94% Allergies: Tlaqzpg-ljp-vsi reductase inhibitors Medications Reviewed. Current Facility-Administered Medications: [...] injection 20 mg, 20 mg, Intravenous, Q12H [facility], Iraida Alvarado, TRISTAN, 20 mg at 12/01/23 0500 insulin glargine (LANTUS) injection 14 Units, 14 Units, Subcutaneous, Nightly, Mary Vargas MD, 14 Units at 11/30/232016 insulin lispro (AdmeLOG,HumaLOG) injection 0-15 Units, 0-15 [...] excoriations Musculoskeletal: No joint swelling, non tender PEST CONTROL WORKER: Awake, and Ox3 Wound: No Osborne Catheter: [...] concerning for pneumonia. EYY/vrs Workstation ID: [id number] Laboratory and Additional Data [...] Aguilar CNP - 11/30/2023 9:26 AM EST [facility] PROGRESS NOTE Assessment and Plan Enoc Armando is a 77 y.o. male patient of Ryley Jeter MD with history of HTN, HLD, DM Type I, CKD, COPD, chronic hypoxemic respiratory failure who presented to [facility] with respiratory distress . Severe Sepsis [...] treatment for pneumonia and CHF Discharge Location: [facility] Quality Measures DVT Prophylaxis:scd Osborne Catheter: present [...] Enoc Armando Admit Date: 1261205 MR #: [id number] : 1945 Physicians: Ryley Jeter MD (Family); Ger Bansal DO (Referring) Assessment: Patient with 1. Respiratory failure 2. Suspicion for pneumonia 3. Possible congestive heart failure 4. Non-ST elevation NV. 5. History of COVID-19 infection. Plan: Continue patient on current therapy Continue patient on IV azithromycin Continue on ceftriaxone From [facility] 5 weeks ago patient was status [...] the patient is stable. Previous x-ray at [facility] had shown congestive changes and edema on [...] 97.7 F (36.5 C) SpO2: 97% Allergies: Jstlfrn-dky-aqz reductase inhibitors Medications Reviewed. Current Facility-Administered Medications: [...] excoriations Musculoskeletal: No joint swelling, non tender PEST CONTROL WORKER: Awake, and Ox3 Wound: No Osborne Catheter: [...] Enoc Armando Admit Date: 11/27/2023 MR #: [id number] : 1945 Current location: [facility] Physicians: Ryley Jeter MD (Family); Britton [...] CHF, hypertension, hyperlipidemia, emphysema who presented to [facility] emergency department with a complaint of shortness [...] CO2 17. He was transferred to [facility] for further evaluation and treatment. At [...] platelet count 220,000 Allergies: Allergies Allergen Reactions Wagyqbv-Smh-Ekp Reductase Inhibitors Muscle cramps Home Medications: Outpatient [...] with you. Mary Vargas MD * Alfred Pabon CNP - 11/29/2023 3:06 PM EST Patient Name: Enoc Armando Admit Date: 1261205 MR #: [id number] : 1945 Physicians: Ryley Jeter MD (Family); Ger Bansal DO (Referring) Assessment: Patient with 1. Respiratory failure 2. Suspicion for pneumonia 3. Possible congestive heart failure 4. Non-ST elevation NV. 5. History of COVID-19 infection. Plan: Continue patient on current therapy Continue patient on IV azithromycin Continue on ceftriaxone From [facility] 5 weeks ago patient was status [...] the patient is stable. Previous x-ray at [facility] had shown congestive changes and edema on [...] 97.9 F (36.6 C) SpO2: 97% Allergies: Rxodngn-fhg-ebh reductase inhibitors Medications Reviewed. Current Facility-Administered Medications: [...] Nightly, Norma Geiger CNP, 20 mg at 11/28/234 azithromycin (ZITHROMAX) 500 mg in sodium chloride [...] excoriations Musculoskeletal: No joint swelling, non tender PEST CONTROL WORKER: Awake, and Ox3 Wound: No Osborne Catheter: None IV Access: yes I reviewed Medications. I reviewed Labs. XR Chest 1 View Final Result Bilateral infrahilar patchy opacities, concerning for pneumonia. Woop!Wear/Anago Workstation ID: [id number] Echocardiogram complete (Results Pending) [...] Benitez MD - 11/29/2023 1:37 PM EST [facility] PROGRESS NOTE Assessment and Plan Enoc Armando is a 77 y.o. male patient of Ryley Jeter MD with history of HTN, HLD, DM Type I, CKD, COPD, chronic hypoxemic respiratory failure who presented to [facility] with respiratory distress . Severe Sepsis [...] Enoc Armando Admit Date: 11/27/2023 MR #: [id number] : 1945 Current location: [facility] Physicians: Ryley Jeter MD (Family); Britton [...] ETT. Blood Glucoses: 11/27 523---544---132---145---173---85 11/28 167/209---286---182---222 07/12/07/15 11/29 266---174 11 Plan: 1. Rx changes: [...] CHF, hypertension, hyperlipidemia, emphysema who presented to [facility] emergency department with a complaint of shortness [...] CO2 17. He was transferred to [facility] for further evaluation and treatment. At [...] platelet count 220,000 Allergies: Allergies Allergen Reactions Eeowfuj-Dvm-Nks Reductase Inhibitors Muscle cramps Home Medications: Outpatient [...] sodium chloride (PF) 5 mL Intravenous Q8H [facility] acetaminophen, dextrose, heparin, ipratropium-albuteroL, [COMPLETED] Insert Indwelling [...] General Cardiology Inpatient Follow-up Heart & Vascular [facility] 11/28/2023 Iraida Alvarado CNP [facility] Patient: Enoc Armando Date of : [...] - EKG showed SR suggest previous anterior NV, minor ST depression laterally similar to 10/11/2023 [...] is orient x 3. Telemetry: SR Allergies: Wdlrwge-jfy-pxk reductase inhibitors Review of Systems: The following [...] TROPONINI 9,349 (CH) 11/27/2023 Iraida Alvarado CNP INE * Bipin Claros - 11/28/2023 11:16 AM EST Spiritual Care Progress Note Completed by: Bipin Claros Person(s) Present During this Visit: Patient Time Spent in Direct Patient Care: 15 Narrative: This fbi special agent visited the pt., Enoc, while rounding. Introduced [...] of his children and grandchildren. 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 This fbi special agent helped the pt explore their feelings about their hospitalization and identify sources of support. This fbi special agent provided information about Pastoral Care services and how to contact a fbi special agent. Pastoral Care team will remain available to support patient and family PRN. 11/28/23 1116 Visit Background Visit With Patient Visit By Staff Shoe Associate Visit Progression Introduction Visit Requested By Shoe Associate Initiated Visit Source Shoe Associate Initiated Visit Type Inpatient;Rounding Visit Circumstances and Events Routine Visit Visit Length (minutes) 15 Patient's Response to Pastoral Care Appeared to be well-engaged;Expressed Gratitude for Visit Visit Planning PRN;Pt aware to contact Shoe Associate as needed Spiritual Assessment Assessed during this visit Oriental Orthodox Assessment Not assessed during this visit Family [...] Facilitated Interventions Active Listening;Explained Role of the Shoe Associate;Explored thoughts/feelings associated with current hospitalization;Relationships Spiritual/Emotional Outcomes Appreciative;Gratitude Spiritual Plan of Care Continue Healing Process;Receive Spiritual Support Signature: Bipin Claros MDiv Staff Shoe Associate [facility] On-Call /Adriana On-Call Shoe Associate She/Her/Hers * Cintia Benitez MD - 11/28/2023 10:49 AM EST [facility] PROGRESS NOTE Assessment and Plan Enoc Armando is a 77 y.o. male patient of Ryley Jeter MD with history of HTN, HLD, DM Type I, CKD, COPD, chronic hypoxemic respiratory failure who presented to [facility] with respiratory distress . Severe Sepsis [...] and affect * Alfred Pabon CNP - 11/28/2023 8:52 AM EST Patient Name: Enoc Armando Admit Date: 1261205 MR #: [id number] : 1945 Physicians: Ryley Jeter MD (Family); Ger Bansal DO (Referring) Assessment: Patient with 1. Respiratory failure 2. Suspicion for pneumonia 3. Possible congestive heart failure 4. Non-ST elevation NV. 5. History of COVID-19 infection. Plan: Continue patient on current therapy Continue patient on IV azithromycin Continue on ceftriaxone From [facility] 5 weeks ago patient was status [...] the patient is stable. Previous x-ray at [facility] had shown congestive changes and edema on [...] 97.7 F (36.5 C) SpO2: 97% Allergies: Orfnguy-pwr-kck reductase inhibitors Medications Reviewed. Current Facility-Administered Medications: [...] excoriations Musculoskeletal: No joint swelling, non tender PEST CONTROL WORKER: Awake, and Ox3 Wound: No Osborne Catheter: [...] Enoc Armando Date of : 1945 Site: [facility] Provider: Prashant Cesar MD ASSESSMENT/PLAN: Enoc Armando 77 y.o. male transferred last night for resp distress, NSTEMI, hypergllycemia from [facility] Three weeks ago testing positive for Covid and then diagnosed with pneumonia. He has been treated as an outpatient with oral antibiotics. He has been experiencing intermittent midsternal chest pain for the past 3 weeks On arrival to [facility], he was placed on NIPPV with improvement [...] Azithromycin/Ceftriaxone Cardiovascular: Troponin 2361 BNP 16,730 Prior NV NSTEMI Cardiology consulted Heparin gtt Neuro/Muscular: Alert [...] injection 40 mg 40 mg Intravenous Q12H [facility] Norma Geiger CNP 40 mg at 11/28/23 [...] Enoc Armando Admit Date: 11/27/2023 MR #: [id number] : 1945 Current location: [facility] Physicians: Ryley Jeter MD (Family); Britton [...] CHF, hypertension, hyperlipidemia, emphysema who presented to [facility] emergency department with a complaint of shortness [...] CO2 17. He was transferred to [facility] for further evaluation and treatment. At [...] platelet count 220,000 Allergies: Allergies Allergen Reactions Illhcdf-Dzr-Gxa Reductase Inhibitors Muscle cramps Home Medications: Outpatient [...] Oral Daily furosemide 20 mg Intravenous Q12H [facility] insulin glargine 14 Units Subcutaneous Nightly lispro insulin 0-15 Units Subcutaneous at bedtime insulin lispro 0-30 Units Subcutaneous QAM AC insulin lispro 0-30 Units Subcutaneous Daily before lunch insulin lispro 0-30 Units Subcutaneous Before dinner ipratropium-albuteroL 3 mL Inhalation Q4H [facility] metoprolol succinate 25 mg Oral Daily sodium chloride (PF) 5 mL Intravenous Q8H [facility] acetaminophen, dextrose, heparin, ipratropium-albuteroL, [COMPLETED] Insert Indwelling [...] Enoc Armando Date of : 1945 Site: [facility] Provider: Prashant Cesar MD ASSESSMENT/PLAN: Enoc Armando 77 y.o. male transferred last night for resp distress, NSTEMI, hypergllycemia from [facility] Three weeks ago testing positive for Covid and then diagnosed with pneumonia. He has been treated as an outpatient with oral antibiotics. He has been experiencing intermittent midsternal chest pain for the past 3 weeks On arrival to [facility], he was placed on NIPPV with improvement [...] 30% Cardiovascular: Troponin 2361 BNP 16,730 Prior NV NSTEMI Cardiology consulted Heparin gtt Neuro/Muscular: Alert [...] mL of mixtureIntravenous Once in imaging Norma Geiger, TRISTAN sodium chloride (PF) (NS) flush 5 mL 5 mL Intravenous PRN Norma Geiger, TRISTAN And sodium chloride (PF) (NS) flush 5 mL 5 mL Intravenous Q8H DIDI Juanjo, Norma Marin, DRAPERY AND UPHOLSTERY MEASURER 5 mL at 11/27/23 0515 And sodium chloride 0.9% (NS) 0-150 mL/hr Intravenous PRN Norma Geiger CNP [x] Medications reviewed. [x] Labs reviewed. Pertinent findings noted: [x] Radiology reviewed. Pertinent findings noted: [] Pathology reviewed. Pertinent findings noted: Family Update/ Code Status: Full code Laboratory and Additional Data Reviewed: Reviewed 11/27/23 8:35 AM: Laboratory and Microbiology documented in this [id number] Consult note* Domenica Torre RN - 11/30/2023 [...] Balance - Static: Supervision, without UE support Digital Data Analyst - Standing Static: (no device) Standing Balance - Dynamic: Stand by assist, Contact guard assist (without device; sba/ supervisionwith rollator) Digital Data Analyst - Standing Dynamic: (trialed with and without rollator) Loss of Balance- Standing Dynamic: (left path deviation unsteadiness without device; no LOB with use of rollator and gait steadiness much improved.) Bed Mobility Rolling: Modified independent, Head of bed flat Supine to Sit: Modified independent, Head of bed flat Sit to Supine: (NT: pt up in chair post PT session) Digital Data Analyst: (none) Transfers Sit to Stand: Stand by assist Bed to Chair: Stand by assist, Contact guard assist (no device) Stand Pivot Transfers: Stand by assist, Contact guard assist (no device) Digital Data Analyst: (no AD) Additional Transfer Trial 2: Yes Sit to Stand Trial 2: Stand by assist (from chair with karin ue support) Digital Data Analyst Trial 2: BUE Additional Transfer Trial 3: Yes Sit to Stand Trial 3: Stand by assist (from locked rollator seat) Digital Data Analyst Trial 3: (locked rollator handles) Gait/Locomotion Gait [...] O2;) Prior Level of Function Level of [place] - Transfers/Ambulation/Mobility: Independent with functional transfers, Independent with household ambulation, Independent with community ambulation (no AD for in home ambulation, intermitant use of cane in community for longer distances) Level of [place] - ADLs: Independent Level of [place] - Homemaking: ( takes care of all [...] at discharge. Pt declined PT services at [place]. Pt up in chair post PT session. [...] completion of Physical Therapy Plan. * Grazyna Obregon RD - 11/29/2023 12:33 PM ESTAssociated Order(s): [...] Oral Daily furosemide 20 mg Intravenous Q12H [facility] insulin glargine 16 Units Subcutaneous Nightly lispro insulin 0-15 Units Subcutaneous at bedtime insulin lispro 0-30 Units Subcutaneous Daily before lunch insulin lispro 0-30 Units Subcutaneous Before dinner [START ON 11/30/2023] insulin lispro 0-30 Units Subcutaneous QAM AC metoprolol succinate 25 mg Oral Daily sodium chloride (PF) 5 mL Intravenous Q8H DIDI Continuous Infusions: heparin infusion (weight based dosing) 16 Units/kg/hr (11/29/23 0616) heparin sodium chloride 0.9 % Estimated Energy Needs Total Energy Estimated Needs: 1269-0047 kcal/d Method for Estimating Needs: 25-30 kcal/kg current wt Total Protein Estimated Needs: 65 g/d Method for Estimating Needs: 1 g/kg current wt Grazyna Obregon RDN, LD, CLC Office * Chaya Mayfield RN - 11/29/2023 9:30 AM ESTAssociated Order(s): IP CONSULT TO SENIOR MOBILE SOLUTIONS ARCHITECT Met with pt for diabetes education. States [...] 4:07 PM ESTAssociated Order(s): IP CONSULT TO VICE PRESIDENT OF ACADEMIC AFFAIRS See earlier consult * Gaudencio Pabon MD - 11/27/2023 2:50 PM EST Patient Name: Enoc Armando MR #: [id number] : 1945 Physicians: Ryley Jeter MD (Family); [...] COVID-19 infection, and then was admitted in [facility]. At that time he was having respiratory failure, and also was having bilateral infiltrates and was found with echocardiogram with ejection fraction of 35%. At [facility], patient was treated with BiPAP, ceftriaxone, [...] failure, [place] [address], And troponin of 9000. Patient also had [...] Information: I have reviewed the patient's allergies. Lxhriuv-woi-bmf reductase inhibitors Review of Systems: Review of [...] Bilateral infrahilar patchy opacities, concerning for pneumonia. [employer] Workstation ID: [id number] Echocardiogram complete (Results Pending) [...] Possible congestive heart failure 4. Non-ST elevation NV. 5. History of COVID-19 infection. Plan. Continue patient on current therapy Patient currently on IV azithromycin Patient on ceftriaxone From [facility] 5 weeks ago patient was status [...] the patient is stable. Previous x-ray at [facility] had shown congestive changes and edema on [...] Enoc Armando Admit Date: 11/27/2023 MR #: [id number] : 1945 Current location: [facility] Physicians: Rylye Jeter MD (Family); Britton Geiger CNP (Referring) [...] CHF, hypertension, hyperlipidemia, emphysema who presented to [facility] emergency department with a complaint of shortness [...] CO2 17. He was transferred to [facility] for further evaluation and treatment. At [...] platelet count 220,000 Allergies: Allergies Allergen Reactions Cirrjoy-Zdi-Hfn Reductase Inhibitors Muscle cramps Home Medications: Outpatient [...] Q12H DIDI ipratropium-albuteroL 3 mL Inhalation Q4H [facility] metoprolol succinate 25 mg Oral Daily [...] patient with you. Mary Vargas MD * Perkins, Julia Barry MD - 11/27/2023 6:35 AM ESTAssociated Order(s): IP CONSULT TO CARDIOLOGY INPATIENT CONSULT NOTE 11/27/2023 ASSESSMENT/PLAN NSTEMI, type II White count 20,000, troponin 9973, 9973; lactic acid elevated EKG personally reviewed showed sinus rhythm suggest previous anterior NV minor ST depression laterally similar to 10/11/2023 [...] testing positive initially he was hospitalized at [facility] on BiPAP. Communication is a bit [...] Information: I have reviewed the patient's allergies. Ngpgnrb-rii-nsu reductase inhibitors Home Medications: Outpatient Medications as [...] from last 7 days Lab Units 11/27/23 0540 11/27/23 0332 11/27/23 0326 SODIUM mmol/L 138 < > 136 [...] from last 7 days Lab Units 11/27/23 0540 11/27/23 0332 11/27/23 0326 SODIUM mmol/L 138 < > 136 POTASSIUM mmol/L 4.0 < > 4.6 CHLORIDE mmol/L 108 < > 107 BUN mg/dL -- -- 42* CREATININE mg/dL -- -- 2.24* GLUCOSE mg/dL 544* < > 523* CALCIUM mg/dL -- -- 8.9 TSH mcIU/mL -- -- 0.35 < > = values in this interval not displayed. Results from last 7 days Lab Units 11/27/23 0540 11/27/23 0332 11/27/23 0326 WBC K/mcL -- -- 23.69* HGB [...] Enoc Armando Admit Date: [id number] MR #: [id number] : 1945 Physicians: Ryley Jeter MD (Family); Ger Bansal DO (Referring) Julia Parker MD documented in this [id number] History and physical note* Norma Geiger CNP - 11/27/2023 3:12 AM EST [facility] Patient Name: Enoc Armando : 1945 MR #: [id number] Admit Date: 11/27/2023 Physicians: Ryley Jeter MD (Family); Ger Bansal DO (Referring) Enoc Armando is a 77 y.o. male patient of Ryley Jeter MD with history of HTN, HLD, DM Type I, CKD, COPD, chronic hypoxemic respiratory failure who presented to [facility] with respiratory distress . Severe Sepsis [...] DKA protocol. Consult endocrinology, DM education, and online marketing strategist Essential Hypertension Dyslipidemia Continue amlodipine, metoprolol, ezetimibe [...] of Ryley Jeter MD, who presented to [facility] with respiratory distress. The patient [...] discomfort with associated diaphoresis. On arrival to [facility], he was placed on NIPPV with improvement [...] Information I have reviewed the patient's allergies. Xilbedm-sst-cdp reductase inhibitors Home Medications Home medications were [...] Benitez MD - 11/27/2023 3:27 PM EST HMS NOTE ADDENDUM I saw and examined the patient independently of the SERENA . Labs, medications, imaging and other studies were reviewed. I agree with history, physical examination findings, medical decision making and the assessment/plan with additions as noted in my documentation below. ANNAMARIA Armando is a 77 y.o. male patient of Ryley Jeter MD with history of HTN, HLD, DM Type I, CKD, COPD, chronic hypoxemic respiratory failure who presented to [facility] with respiratory distress . Physical Examination [...] COVID -Appreciate ID input documented in this [id number] Emergency department Note* Ger Bansal, DO - 11/26/2023 9:13 PM ESTAssociated Order(s): [...] to experience difficulty breathing for 1 hr cryptanalyst. 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 Patient sees Dr. Small at [place] and is scheduled to have a stress test next week. Patient has denied any chest pain his entire time here. I did speak to the metal fabricator apprentice on-call Dr. Parker and she agreed with a dose of IV Lasix and starting the patient on heparin which will be done. Patient is improved at present but we will continue to monitor the patient until a bed becomes available at [place]. The patient has been accepted by the [...] History Past Medical History: Diagnosis Date Diabetes (CMS/[facility]) History reviewed. No pertinent surgical history. Family [...] different testing methodology at [facility] than at other [facility]. Direct result comparisons should only [...] different testing methodology at [facility] than at other [facility]. Direct result comparisons should only [...] different testing methodology at [facility] than at other [facility]. Direct result comparisons should only [...] TROPONIN I, HIGH SENSITIVITY ED Course & [facility] ED Course as of 11/27/23105Nov 26, 2023 2142 Twelve-lead EKG interpreted by myself at 2120 1 sinus tachycardia at 113 2 left axis deviation3 nonspecific ST-T wave changes [MS] 2249 Troponin I, High Sensitivity(!!): 3,473 [MS] ED Course User Index [MS] Ger Bansal DO Diagnoses as of 11/27/23105 NSTEMI (non-ST elevated myocardial infarction) ([facility]/HCC) MADONNA (acute kidney injury) (CMS/HCC) Acute combined [...] Ghassan Tovar 11/26/2023 10:02 PM Dictation workstation: [id number] Medical Decision Making Patient will be transferred in stable condition to [facility] in [place]. Procedure Critical Care Performed by: Ger Bansal [...] Bansal DO 11/27/23 0119 documented in this [facility] Work Phone: 1(847) 863-464801-26-2024 Physician Emergency department Note* Ger Bansal, - 11/26/2023 9:13 PM ESTAssociated Order(s): Critical [...] to experience difficulty breathing for 1 hr cryptanalyst. 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 Patient sees Dr. Small at [place] and is scheduled to have a stress test next week. Patient has denied any chest pain his entire time here. I did speak to the metal fabricator apprentice on-call Dr. Parker and she agreed with a dose of IV Lasix and starting the patient on heparin which will be done. Patient is improved at present but we will continue to monitor the patient until a bed becomes available at [place]. The patient has been accepted by the [...] History Past Medical History: Diagnosis Date Diabetes ([facility]) History reviewed. No pertinent surgical history. Family [...] different testing methodology at [facility] than at other [facility]. Direct result comparisons should only [...] different testing methodology at [facility] than at other [facility]. Direct result comparisons should only [...] different testing methodology at [facility] than at other [facility]. Direct result comparisons should only [...] MDM ED Course as of 11/27/23105Nov 26, 20232 Twelve-lead EKG interpreted by myself at 2120 1 sinus tachycardia at 113 2 left axis deviation3 nonspecific ST-T wave changes [MS] 2249 Troponin I, High Sensitivity(!!): 3,473 [MS] ED Course User Index [MS] Ger Bansal, DO Diagnoses as of 01/27/24 0106 NSTEMI (non-ST elevated myocardial infarction) ([facility]) MADONNA (acute kidney injury) ([facility]) Acute combined systolic and diastolic congestive heart failure ([facility]) Type 1 diabetes mellitus with other specified complication ([facility]) XR chest 1 view Final Result Pulmonary vascular congestive change and edema and small bilateral pleural effusions. There is asymmetric opacity in the right lower lung concerning for superimposed pneumonia. 10 mm nodular opacity at the left lung base; follow-up dedicated CT chest is recommended to exclude underlying pulmonary nodule. MACRO: None Signed by: Ghassan Tovar 11/26/2023 10:02 PM Dictation workstation: [id number] Medical Decision Making Patient will be transferred in stable condition to [facility] in [place]. Procedure Critical Care Performed by: Ger Bansal [...] another facility Ger Bansal DO 11/27/23 0119 [facility] Work Phone: 1(715) 500-662701-02-2024 History of Present illness Narrative* Mary Vargas MD - 11/02/2023 4:50 PM EST Patient called and reported that he needs Humalog Rx changed due to formulary change. Rx mailed forAdmelog Solostar 15 ml, 11 refills. CD documented in this [id number] History of Present illness Narrative* Woo Small MD - 10/21/2023 9:00 AM EST General Cardiology New Patient Clinic Consult [facility] 10/21/2023 Woo Small MD [address] [place] [address] Medical [place] [phone] Patient: Enoc Armando Date of : 1945 [...] 6 months (around 04/21/2024). Woo Small MD, [facility] Non-Invasive Cardiology [facility] P:[phone] F:[phone] History of Present Illness: Enoc Armando is a 77 y.o. man with a past medical history of insulin-dependent diabetes for 30 years, history of tobacco use, recent COVID infection with systolic dysfunction ejection fraction ranging from 35 to 45% who presents today to establish care. Patient states that he was critically ill andhospitalized at [facility], on BiPAP. Prior to hospitalization patient [...] 25.50 Types: Cigarettes Smokeless Tobacco Never Allergies: Lxlpqkt-gnq-ayh reductase inhibitors All of the information has [...] ., Disp: , Rfl: [facility], Inhale 2 L/min See Admin Instructions ., [...] appropriate conversation Cardiovascular Studies: Echocardiogram reviewed from [facility], 10/11/2023 moderately decreased ejection fraction [...] Total Cholesterol: 156 mg/dL documented in this [id number] Instructions* Patient Instructions* Luisa Easley RN - 10/21/2023 8:54 AM EST How to Contact your Care Team: Provider: Dr. Woo Small MD Clinic Nurse: Luisa Easley RN REFILLS: When in need for refills please call your care team or the office at [phone]. Please include medication name, pharmacy name, and [...] questions please contact your care team or [phone]. documented in this [id number] Nurse Note* Moody Gorman RN - 10/13/2023 7:25 PM EST Pt IVs removed intact, home O2 has just been delivered and family given instruction by [employer]. Pt leaving by wheelchair to discharge doors, daughter driving. [facility]2023 Nurse Note* Moody Gorman RN - [...] - 10/11/2023 10:00 AM EST , Alice ([phone]), called and requesting and update. Update provided. She is Eonc's POA and requests in the event of [...] HR 112, RR 24. documented in this [facility] Work Phone: 1([phone]) 350-410712-13-2023 Nurse Note* Geni Lynne RN - 10/13/2023 3:56 PM EST Discharge instructions reviewed with pt. Printed and verbal education given on covid, chf, and homeoxygen use/safety. Pt verbalized understanding of all instructions. Walker rx written by dr rivera. Awaiting home oxygen set up. [facility]2023 Hospital Discharge instructions* Discharge Instr - [...] or approved for treating a specific patient. [employer] and its affiliatesdisclaim any warranty or liability relating to this information or the use thereof. The use of thisinformation is governed by the Terms of Use, available at https://www.Zebra TechnologiesTapastreetuwer.com/en/know/cyxzrtir-umloofkkztgqb-batgo Copyright 2022 [employer]. and its affiliates and/or licensors. All rights [...] or approved for treating a specific patient. [employer] and its affiliatesdisclaim any warranty or liability relating to this information or the use thereof. The use of thisinformation is governed by the Terms of Use, available at https://www.[employer].com/en/know/yaagjfuu-jdjpcohiseiox-nkpbo Copyright 2022 [employer] and its affiliates and/or licensors. All rights [...] Do not take any other prescription drugs, asig-xrs-rbewgvv (OTC) drugs, herbals, or diet aids without [...] diet are needed? Ask your doctor or online marketing strategist what diet is best for you. The [...] or approved for treating a specific patient. [employer] and its affiliatesdisclaim any warranty or liability relating to this information or the use thereof. The use of thisinformation is governed by the Terms of Use, available at https://www.[employer].com/en/know/hjxauqob-afasqvytxxacu-wiacc Copyright 2022 [employer]. and its affiliates and/or licensors. All rights reserved. documented in this [facility] Work Phone: 1(232) 843-619912-13-2023 Miscellaneous Notes* Documentation Clarification Note - Vera Mari MD - 10/13/2023 3:06 PM EST PATIENT: ENOC ARMANDO : 1945 ADMIT DATE: 10/11/2023 1:08 AM DISCH DATE: RESPONDING PROVIDER #: [id number] PROVIDER RESPONSE TEXT: Sepsis with associated respiratory [...] hypoxia], hypertensive emergency, hyperglycemia, and elevated troponin. Natural Gas Plant Technician consult documents Acute hypoxemic respiratory failure. Treatment: [...] Continue with current management. documented in this [facility] Work Phone: 1([phone]) 745-111612-13-2023 Note* Documentation Clarification Note - Vera Mari MD - 10/13/2023 3:06 PM EST PATIENT: ENOC ARMANDO : 1945 ADMIT DATE: 10/11/2023 1:08 AM DISCH DATE: RESPONDING PROVIDER #: [id number] PROVIDER RESPONSE TEXT: Sepsis with associated respiratory [...] hypoxia], hypertensive emergency, hyperglycemia, and elevated troponin. Natural Gas Plant Technician consult documents Acute hypoxemic respiratory failure. Treatment: [...] by: VERA RIVERA MD 10/13/2023 3:05 PM [facility] Work Phone: [phone]) 112-299912-13-2023 History of Present illness Narrative* JENNIFER Almanza [...] Prior Function Per Pt/Caregiver Report Level of [place]: Independent with ADLs and functional transfers, Independent [...] length Comments/Distance (ft) 1: 88ft Outcome Measures: [facility] Basic Mobility Turning from your [...] Education Comments No comments found. * Ayanna Albert, DO - 10/13/2023 11:06 AM EST Enoc [...] Bathroom Equipment: None Prior Function: Level of [place]: Independent with ADLs and functional transfers, Independent [...] Function: Gross Grasp: Functional Coordination: Functional Outcome Measures:[facility] Daily Activity Putting on and [...] Start: 10/13/23 Expected End: 10/27/23 * Phylicia Reyes, GATE GUARD-DRAPERY AND UPHOLSTERY MEASURER, DNP - 10/13/2023 10:18 AM EST Subjective Data: Patient examined and denies any chest pain/pressure/discomfort, palpitations, worsening SOB, dizziness, or lower extremity edema. He does not currently follow with a Biotechnician. Overnight Events: None Objective Data: Last Recorded [...] result verified on 10/11/2023 0209 on specimen/case [id number] called with component [facility] for procedure Troponin I, High [...] 13-18 <7.5 7-12 <8.0 0- 6 7.5-8.5 [place] [employer]. Diabetes Care 33(S1), Nov 2009. 02/12/2023 08:57 AM 7.7 % Final Comment: Diagnosis of Diabetes-Adults Non-Diabetic: < or = 5.6% Increased risk for developing diabetes: 5.7-6.4% Diagnostic of diabetes: > or = 6.5% . Monitoring of Diabetes Age (y) Therapeutic Goal (%) Adults: >18 <7.0 Pediatrics: 13-18 <7.5 7-12 <8.0 0- 6 7.5-8.5 [place] [employer]. Diabetes Care 33(S1), Nov 2009. [...] Assessment Information (1): baseline creat 1.6-1.9 per veneer stock grader; A1C 7.4 09/27, 7.6 8/l Nutrition Diagnosis [...] Location: Patient Position: Pulse: 76 90 Resp: 19 Temp: 36.1 C (97 F) TempSrc: SpO2: [...] result verified on 10/11/2023 0209 on specimen/case [id number] called with component [facility] for procedure Troponin I, High [...] 13-18 <7.5 7-12 <8.0 0- 6 7.5-8.5 [place] [employer]. Diabetes Care 33(S1), Nov 2009. 02/12/2023 08:57 AM 7.7 % Final Comment: Diagnosis of Diabetes-Adults Non-Diabetic: < or = 5.6% Increased risk for developing diabetes: 5.7-6.4% Diagnostic of diabetes: > or = 6.5% . Monitoring of Diabetes Age (y) Therapeutic Goal (%) Adults: >18 <7.0 Pediatrics: 13-18 <7.5 7-12 <8.0 0- 6 7.5-8.5 [place] [employer]. Diabetes Care 33(S1), Nov 2009. [...] around 1.8,arthritis and smoking. Came to ED [facility] on 10/11/2023 complaining of shortness of breath [...] to discharge. If not possible, should have [facility] as an outpatient. - Due to reduced [...] on 10/11/2023 6:18:47 PM Transthoracic Echo (TTE) [place] [address] ext-[phone], TRANSTHORACIC ECHOCARDIOGRAM REPORT Patient Name: ENOC ARMANDO Reading Physician: [id number] Jose Enrique Molina MD Study Date: 10/11/2023 Ordering Provider: [id number] VERA RIVERA MRN/PID: [id number] Fellow: Nurse: Jana See RN Date of /Age: 2 1945 / 77 years Director Plans: Cecilio Gabriel RDCS Gender: M Additional Staff: Height: 170.18 cm Admit Date: Weight: 71.67 kg Admission Status: Inpatient - Routine BSA: 1.83 m2 Department Location: [address]-ICU Blood Pressure: 141 /71 mmHg Study Type: TRANSTHORACIC ECHO (TTE) COMPLETE Diagnosis/ICD: Acute on chronic systolic (congestive) heart failure (CHF)-I50.23 CPT Codes: Echo Complete w Full Doppler-56754 Study Detail: The following Echo studies were [...] LA Area A2C: 16.2 cm2 LA Major [place] A4C: 5.3 cm LA [place] A2C: 5.0 cm LA Volume Index: 23.9 ml/m2 LA Vol A4C: 43.7 ml LA Vol A2C: 43.3 ml LV SYSTOLIC FUNCTION BY 2D PLANIMETRY (MOD): Normal Ranges: EF-A4C View: 45.6 % (>=55%) EF-A2C View: 40.9 % EF-Biplane: 44.2 % AORTIC VALVE: Normal Ranges: LVOT Diameter: 1.80 cm (1.8-2.4cm) RIGHT VENTRICLE: RV Basal 3.49 cm RV Mid 2.45 cm RV Major 7.8 cm [id number] Jose Enrique Molina MD Electronically signed on 10/11/2023 at 9:43:19 AM Final XR chest 1 view Narrative: Interpreted By: Kahlil Fagan, STUDY: XR CHEST 1 VIEW; 10/11/2023 1:30 am INDICATION: Signs/Symptoms:Cough. COMPARISON: Chest radiograph 11/04/2012 ACCESSION NUMBER(S): [id number] ORDERING CLINICIAN: AURY ROUSE FINDINGS: SUPPORT DEVICES: [...] Kahlil Fagan 10/11/2023 1:33 AM Dictation workstation: [id number] Physical Exam Constitutional: Appearance: Normal appearance. HENT: [...] on sliding scale insulin. A1c 7.4 appreciate site supervising technical operator input. Oxygen as tolerated, currently liters. PT, OT consult for generalized weakness. Vitamin D, zinc DVT prophylaxis on heparin. CODE STATUS full. Disposition in 24 to 48 hours. Total time spent 35 minutes. Vera Rivera MD * Consuelo Fischer RN - 10/11/2023 2:04 PM EST 10/11/23 2178 Discharge Planning Living Arrangements Spouse/significant other Support [...] No Patient Choice Provider Choice list and [facility] website (https://medicare.gov/care-compare#search) for post-acute Quality and Resource [...] follow. Consuelo Fischer BSN/RN-TCC documented in this [facility] Work Phone: [phone]) 883-652012-13-2023 Hospital course Narrative* Vera Mari MD - [...] Your Medications These medications were sent to [facility] [address] [address] metoprolol succinate XL 25 mg 24 hr tablet These medications were sent to [facility] [address] [place] [id number] Hours: 8 AM to 5:30 Mon-Fri, 8 [...] up with home oxygen. 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 Clinically stable. Patient also had elevated troponin secondary due to above seen by cardiology, Dr. De Dios, started on metoprolol, aspirin initially which which can be changed to 81 mg daily. Jaundice and Zetia also were started. Patient also has seen Dr. Albert, veneer stock grader for acute on chronic kidney disease secondary [...] Time Provider Department Center 02/24/2024 1:45 PM Maricruz Albert, GATE GUARD-DRAPERY AND UPHOLSTERY MEASURER, [facility] [id number] [facility] Dr. Albert, nephrology in [address] De Dios, cardiology in 2 to 4 weeks. Total discharge time 40 minutes. Vera Rivera MD [facility] Phone: [phone]) 610-921412-13-2023 Nurse Note* Moody Gorman RN - 10/13/2023 12:27 PM EST Pt is AAO. He is using his call light today when he wants to use the bathroom. He has had loose stools, but less frequent. [facility] Work Phone: [phone]) 222-692012-12-2023 Nurse Note* Moody Gorman RN - 10/12/2023 5:25 PM EST Pt is alert to situation at this time and able to explain his diagnosis, but still impulsive when moving and unsteady. [facility] Work Phone: [phone] Nurse Note* Moody Gorman RN - 10/12/2023 4:42 PM EST Pt continues to try and leave the bed and chair without his call light. When asked what he needs orwhere he wants to go, pt is unable to articulate his motivation except the general desire to move around. Repeated re-education is not working. [facility] Work Phone: [phone] 335-370712-12-2023 Nurse Note* Moody Gorman RN - 10/12/2023 3:45 PM EST Answered chair alarm. Pt is becoming increasingly confused and restless in general. He is aware of himself and other people, but is becoming impulsive in getting out of bed or his chair. Pt ambulatedto the bathroom, O2 increased to 5L for movement per RT. Pt assisted back to bed, bed alarm activated. [facility] Work Phone: [phone] Nurse Note* Moody Gorman RN - 10/12/2023 8:00 AM EST Pt is AAO, uses his call light appropriately. Pt currently on RA. Pt c/o weakness in his legs, but is able to sit up at the edge of the bed and walk with a walker to lean on for stability. [facility] Work Phone: [phone] Plan of care note* Care Plan - [...] to address these barriers include repeated re-orientation. [facility] Work Phone: [phone] 318-844512-12-2023 Plan of care note* Care Plan - Jody Ball RN - 10/12/2023 5:59 AM EST The clinical goals for the shift include Blood sugar will return to normal limits by the end of theshift Over the shift, Pt tolerated BIPAP well. No signs of respiratory distress. [facility]12-11-2023 Consult note* Tyrone Zimmerman MD - [...] around 1.8,arthritis and smoking. Came to ED [facility] on 10/11/2023 complaining of shortness of breath [...] result verified on 10/11/2023 0209 on specimen/case [id number] called with component [facility] for procedure Troponin I, High [...] 13-18 <7.5 7-12 <8.0 0- 6 7.5-8.5 [employer]. Diabetes Care 33(S1), Nov 2009. 02/12/2023 08:57 AM 7.7 (A) % Final Comment: Diagnosis of Diabetes-Adults Non-Diabetic: < or = 5.6% Increased risk for developing diabetes: 5.7-6.4% Diagnostic of diabetes: > or = 6.5% . Monitoring of Diabetes Age (y) Therapeutic Goal (%) Adults: >18 <7.0 Pediatrics: 13-18 <7.5 7-12 <8.0 0- 6 7.5-8.5 [place]. Diabetes Care 33(S1), Nov 2009. [...] Family history unknown: Yes Allergies: Prednisone and Isllgsk-bpq-eqe reductase inhibitors Inpatient Medications: Scheduled medications Medication [...] around 1.8,arthritis and smoking. Came to ED [facility] on 10/11/2023 complaining of shortness of breath [...] to discharge. If no t possible, have [facility] as an outpatient. - Due to reduced [...] days: 0 Code Status: Full Code Tyrone Zmimerman MD [facility] Work Phone: [phone] Consult note* Tyrone Zimmerman MD - 10/11/2023 [...] around 1.8,arthritis and smoking. Came to ED [facility] on 10/11/2023 complaining of shortness of breath [...] result verified on 10/11/2023 0209 on specimen/case [id number] called with component [facility] for procedure Troponin I, High [...] 13-18 <7.5 7-12 <8.0 0- 6 7.5-8.5 [place]. Diabetes Care 33(S1), Nov 2009. 02/12/2023 08:57 AM 7.7 (A) % Final Comment: Diagnosis of Diabetes-Adults Non-Diabetic: < or = 5.6% Increased risk for developing diabetes: 5.7-6.4% Diagnostic of diabetes: > or = 6.5% . Monitoring of Diabetes Age (y) Therapeutic Goal (%) Adults: >18 <7.0 Pediatrics: 13-18 <7.5 7-12 <8.0 0- 6 7.5-8.5 [place]. Diabetes Care 33(S1), Nov 2009. [...] has a past medical history of Diabetes ([facility]). Past Surgical History: He has no past surgical history on file. Social History: He reports that he has been smoking cigarettes. He has never used smokeless tobacco. He reports that he does not drink alcohol and does not use drugs. Family History: Family History Family history unknown: Yes Allergies: Prednisone and Urytirj-qen-odn reductase inhibitors Inpatient Medications: Scheduled medications Medication [...] around 1.8,arthritis and smoking. Came to ED [facility] on 10/11/2023 complaining of shortness of breath [...] to discharge. If no t possible, have [facility] as an outpatient. - Due to reduced [...] 12:13 PM ESTAssociated Order(s): IP CONSULT TO VICE PRESIDENT OF ACADEMIC AFFAIRS Reason For Consult Acute respiratory failure History [...] has a past medical history of Diabetes ([facility]). Surgical History He has no past surgical history on file. Social History He reports that he has been smoking cigarettes. He has never used smokeless tobacco. He reports that he does not drink alcohol and does not use drugs. Family History Family History Family history unknown: Yes Allergies Prednisone and Efpbrcq-rhg-rzx reductase inhibitors Review of Systems A full [...] COVID-19 Ayanna Albert DO documented in this [facility] Work Phone: 1([phone]) 566-597012-11-2023 Consult note* Ayanna Albert DO - 10/11/2023 12:13 PM ESTAssociated Order(s): IP CONSULT TO VICE PRESIDENT OF ACADEMIC AFFAIRS Reason For Consult Acute respiratory failure History [...] Family history unknown: Yes Allergies Prednisone and Jjbayzq-dfl-cro reductase inhibitors Review of Systems A full [...] procedures Principal Problem: COVID-19 Ayanna Albert DO [facility] Work Phone: [phone]) 921-349312-11-2023 Plan of care note* Care Plan - Vera Mari MD - 10/11/2023 11:49 AM EST Patient's reviewed. Currently on 5 L of oxygen by nasal cannula, sitting in bed. wants him to be full code with DNI. Continue with current management. [facility] Work Phone: [phone]) 362-823712-11-2023 Nurse Note* Geni Wall RN - 10/11/2023 10:00 AM EST , Alice ([phone]), called and requesting and update. Update provided. She is Enoc's POA and requests in the event of cardiac he receive CPR and life sustaining medications. She is unsure if she wants him intubated and wants more time to think about it. She reported she will be visiting [place] today around 11am. [facility]12-11-2023 Nurse Note* Zoila Mota RN - [...] Patient currently sleeping, HR 112, RR 24. [facility] Work Phone: [phone]) [phone] History and physical note* Praful Pineda MD [...] Family history unknown: Yes Allergies Prednisone and Fwdkhzt-ggx-lsh reductase inhibitors Medications Prior to Admission Medication [...] Straw, Yellow Appearance, Urine Clear Clear Specific [place], Urine 1.014 1.005 - 1.035 pH, Urine [...] Signs/Symptoms:Cough. COMPARISON: Chest radiograph 11/04/2012 ACCESSION NUMBER(S): [id number] ORDERING CLINICIAN: AURY ROUSE FINDINGS: SUPPORT DEVICES: [...] Kahlil Fagan 10/11/2023 1:33 AM Dictation workstation: [id number] Assessment/Plan 77-year-old male, smoker, with a past [...] are not fully corrected) Praful Pineda MD [facility] Work Phone: [phone] 335-376812-11-2023 History and physical note* Praful Pineda MD [...] IV labetalol and then admitted [facility] for further investigation and [...] Family history unknown: Yes Allergies Prednisone and Ssvkusg-fra-zrz reductase inhibitors Medications Prior to Admission Medication [...] Straw, Yellow Appearance, Urine Clear Clear Specific [place], Urine 1.014 1.005 - 1.035 pH, Urine [...] Signs/Symptoms:Cough. COMPARISON: Chest radiograph 11/04/2012 ACCESSION NUMBER(S): [id number] ORDERING CLINICIAN: AURY ROUSE FINDINGS: SUPPORT DEVICES: [...] Kahlil Fagan 10/11/2023 1:33 AM Dictation workstation: [id number] Assessment/Plan 77-year-old male, smoker, with a past [...] corrected) Praful Pineda MD [facility] Work Phone: [phone] 468-265912-11-2023 Emergency department Note* Aury Rouse DO - [...] ED and establish an IV.Patient admits to 93-ehhh-hord history of cigarette use and currently smokes 1 pack/day. Activity makes his symptoms worse rest helps to some extent. History provided by: EMS personnel and patient staff interpreter used: No Physical Exam Vitals and nursing note reviewed. Constitutional: General: He is awake. He is in acute distress. Appearance: Normal appearance. He is overweight. He is ill-appearing. HENT: Head: Normocephalic and atraumatic. Right Ear: External ear normal. Decreased hearing noted. Left Ear: External ear normal. Decreased hearing noted. Nose: Congestion and rhinorrhea present. Rhinorrhea is clear. Mouth/Throat: Lips: [place]. Mouth: Mucous membranes are moist. Pharynx: Oropharynx [...] specimens andhas been validated for use at [facility]. Negative results do not preclude COVID-19 infections [...] in ng/mL Fibrinogen Equivalent Units (FEU). Per academic advisor's instructions for use, a value of less [...] different testing methodology at [facility] than at other [facility]. Direct result comparisons should only [...] different testing methodology at [facility] than at other [facility]. Direct result comparisons should only [...] different testing methodology at [facility] than at other [facility]. Direct result comparisons should only [...] Color, Urine Yellow Appearance, Urine Clear Specific [place], Urine 1.014 pH, Urine 5.0 Protein, Urine [...] and has been validated for use at [facility]. Negative results do not preclude Influenza A/B infections, and should not be used as the sole basis for diagnosis, treatment, or other management decisions. IfInfluenza A/B and RSV PCR results are negative, testing for Parainfluenza virus, Adenovirus and Metapneumovirus is routinely performed for [facility] pediatric oncology and intensive care inpatients, and isavailable on other patients by placing an add-on request. RSV PCR - Normal RSV PCR Not Detected Narrative: This assay is an FDA-cleared, in vitro diagnostic nucleic acid amplification test for the detectionof RSV from nasopharyngeal specimens, and has been validated for use at [facility]. Negative results do not preclude RSV infections, and should not be used as the sole basis for diagnosis, treatment, or other management decisions. If Influenza A/B and RSV PCR results are negative, testing for Parainfluenza virus, Adenovirus and Metapneumovirus is routinely performed for pediatric oncology and intensive care inpatients at [facility], and is available on other patients by [...] Abnormality Status --------- ------ Urinalysis with Reflex M...[[id number]] Abnormal Final result Extra Urine Orosco Tube[[id number]] Final result Please view results for these tests on the individual orders. TROPONIN SERIES- (INITIAL, 1 HR) Narrative: The following orders were created for panel order Troponin I Series, High Sensitivity (0, 1 HR). Procedure Abnormality Status --------- ------ Troponin I, High Sensiti...[[id number]] Abnormal Final result Troponin, High Sensitivi...[[id number]] Abnormal Final result Please view results for [...] Kahlil Fagan 10/11/2023 1:33 AM Dictation workstation: [id number] Critical Care Performed by: Aury Rouse DO [...] Q waves inthe anterior precordial leads. The NE interval is 148 ms. QRS durations 82 [...] did help a little. [facility] Work Phone: 1([phone]) 698-632212-11-2023 Emergency department Triage note* VANDANA Cosby - 10/11/2023 1:08 AM EST Pt brought in via EMS for fevers and chills. Pt reports being ill for the last 2-3 days. Pt states that he has been having fevers, chills, weakness, fatigue, headaches, body aches with some SOB. Pt was given a breathing treatment in route and states that it did help a little. [facility] Work Phone: [phone]) 459-828112-11-2023 Physician Emergency department Note* Aury Rouse DO [...] ED and establish an IV.Patient admits to 31-ipzs-wcig history of cigarette use and currently smokes 1 pack/day. Activity makes his symptoms worse rest helps to some extent. History provided by: EMS personnel and patient staff interpreter used: No Physical Exam Vitals and nursing note reviewed. Constitutional: General: He is awake. He is in acute distress. Appearance: Normal appearance. He is overweight. He is ill-appearing. HENT: Head: Normocephalic and atraumatic. Right Ear: External ear normal. Decreased hearing noted. Left Ear: External ear normal. Decreased hearing noted. Nose: Congestion and rhinorrhea present. Rhinorrhea is clear. Mouth/Throat: Lips: [place]. Mouth: Mucous membranes are moist. Pharynx: Oropharynx [...] specimens andhas been validated for use at [facility]. Negative results do not preclude COVID-19 infections [...] in ng/mL Fibrinogen Equivalent Units (FEU). Per academic advisor's instructions for use, a value of less [...] different testing methodology at [facility] than at other [facility]. Direct result comparisons should only [...] different testing methodology at [facility] than at other [facility]. Direct result comparisons should only [...] different testing methodology at [facility] than at other [facility]. Direct result comparisons should only [...] Color, Urine Yellow Appearance, Urine Clear Specific [place], Urine 1.014 pH, Urine 5.0 Protein, Urine [...] and has been validated for use at [facility]. Negative results do not preclude Influenza A/B infections, and should not be used as the sole basis for diagnosis, treatment, or other management decisions. IfInfluenza A/B and RSV PCR results are negative, testing for Parainfluenza virus, Adenovirus and Metapneumovirus is routinely performed for [facility] pediatric oncology and intensive care inpatients, and isavailable on other patients by placing an add-on request. RSV PCR - Normal RSV PCR Not Detected Narrative: This assay is an FDA-cleared, in vitro diagnostic nucleic acid amplification test for the detectionof RSV from nasopharyngeal specimens, and has been validated for use at [facility]. Negative results do not preclude RSV infections, and should not be used as the sole basis for diagnosis, treatment, or other management decisions. If Influenza A/B and RSV PCR results are negative, testing for Parainfluenza virus, Adenovirus and Metapneumovirus is routinely performed for pediatric oncology and intensive care inpatients at [facility], and is available on other patients by [...] Abnormality Status --------- ------ Urinalysis with Reflex M...[[id number]] Abnormal Final result Extra Urine Orosco Tube[[id number]] Final result Please view results for these tests on the individual orders. TROPONIN SERIES- (INITIAL, 1 HR) Narrative: The following orders were created for panel order Troponin I Series, High Sensitivity (0, 1 HR). Procedure Abnormality Status --------- ------ Troponin I, High Sensiti...[[id number]] Abnormal Final result Troponin, High Sensitivi...[[id number]] Abnormal Final result Please view results for [...] changes. Recommend follow-up to resolution. Signed by: Kahlilrakan Fagan 10/11/2023 1:33 AM Dictation workstation: [id number] Critical Care Performed by: Aury Rouse DO [...] Q waves inthe anterior precordial leads. The NE interval is 148 ms. QRS durations 82 ms. QTc is 455 ms axis is 39 degrees. Diagnoses as of 10/12/23514 COVID-19 Acute respiratory failure with hypoxia (CMS/HCC) Acute congestive heart failure, unspecified heart failure type (CMS/HCC) Pneumonia of both lungs due to infectious organism, unspecified part of lung Aury Rouse DO 10/12/23514 [facility] Work Phone: [phone]) 269-226812-08-2023 History of Present illness Narrative* Mary Vargas [...] being taken. Patient does not see a general utility maintenance repairer. Eye exam is current. Currently taking: No oral hypoglycemic medications Humalog insulin: 7 units at breakfast; 8 units at lunch; 8-9 units at supper Lantus insulin: 15 units at bedtime Outpatient Medications Marked as Taking for the 10/08/23 encounter (Office Visit) with Mary aVrgas MD: amLODIPine (NORVASC) 10 MG tablet, Take [...] bedside for hypoglycemia at night. 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 Had bilat cataract extraction Dr. Lopez. Sees Dr. Browne in [place] every year routinely.Has blurred vision with low [...] Call if BG consistently <70 or >250. [phone] Continue to check blood sugar 3 times [...] MD 10/10/23 8:04 PM documented in this [id number] Evaluation + Plan note* Assessment & Plan Note - Ayanna Albert DO - 08/25/2023 2:39 PM EDTAssociated Problem(s): CKD (chronic kidney disease) Doing well with DM HTN well controlled Sees Endocrinology. Has Type 1 DM On Statin Not on nephrotoxins [facility] Work Phone: [phone]) 116-719410-25-2023 Miscellaneous Notes* Assessment & Plan Note - Ayanna Albert DO - 08/25/2023 2:39 PM EDTAssociated Problem(s): CKD (chronic kidney disease) Doing well with DM HTN well controlled Sees Endocrinology. Has Type 1 DM On Statin Not on nephrotoxins documented in [facility]High[facility] Work Phone: 1(295) 910-769810-25-2023 History of Present illness Narrative* Ayanna Albert [...] Microalbuminuria Dyslipidemia Nicotine Abuse [facility] Work Phone: 1([phone]) 296-299304-21-2023 History of Present illness Narrative* Paty Ortega [...] being taken. Patient does not see a general utility maintenance repairer. Eye exam is current. Currently taking: No [...] at HS. PLAN: See below. 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 Had bilat cataract extraction Dr. Lopez. Sees Dr. Browne in [place] every year routinely. Nephropathy: Positive Creat: 1.09; [...] Call if BG consistently <70 or >250. [phone] Continue to check blood sugar 4 times [...] CNP 02/19/23 10:25 AM documented in this [id number] History of Present illness Narrative* Paty Ortega [...] being taken. Patient does not see a general utility maintenance repairer. Eye exam is current. Currently taking: No [...] Reduce lunch and HS insulin. 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 Had bilat cataract extraction Dr. Lopez. Sees Dr. Browne in [place] every year routinely. Nephropathy: Positive Creat: 1.09; [...] Call if BG consistently <70 or >250. [phone] Continue to check blood sugar 4 times [...] CNP 10/19/22 10:25 AM documented in this [id number] History of Present illness Narrative* Paty Ortega [...] being taken. Patient does not see a general utility maintenance repairer. Eye exam is current. Currently taking: No [...] Reduce lunch and HS insulin. 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 Had bilat cataract extraction Dr. Lopez. Sees Dr. Browne in [place] every year routinely. Nephropathy: Positive Creat: 1.09; [...] Call if BG consistently <70 or >250. [phone] Continue to check blood sugar 4 times [...] MD 06/19/22 11:20 PM documented in this [id number] History of Present illness Narrative* Mary Vargas [...] being taken. Patient does not see a general utility maintenance repairer. Eye exam is current. Currently taking: No [...] Reduce lunch and HS insulin. 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 Had bilat cataract extraction Dr. Lopez. Sees Dr. Browne in [place] every year routinely. Nephropathy: Positive Creat: 1.09; [...] to check stenosis. To be done in [place] office. 2. Education: Reviewed ABCs of diabetes [...] Call if BG consistently <70 or >250. [phone] Continue to check blood sugar 4 times [...] MD 02/13/22 11:20 PM documented in this [id number] History of Present illness Narrative* Paty Ortega, DRAPERY AND UPHOLSTERY MEASURER - 10/13/2021 2:10 PM EST Images from [...] being taken. Patient does not see a general utility maintenance repairer. Eye exam is current. Currently taking: No [...] HS. PLAN: See below. CPM Retinopathy: Negative PURIFICATION DIRECTOR. Exam within last 12 months: yes Date: 10/16/20. Had bilat cataract extraction Dr. Lopez. Sees Dr. Browne in [place] every year routinely. Nephropathy: Negative Creat: 1.08; [...] Call if BG consistently <70 or >250. [phone] Continue to check blood sugar 4 times [...] CNP 10/13/21 2:55 PM documented in this [id number] History of Present illness Narrative* Paty Ortega [...] being taken. Patient does not see a general utility maintenance repairer. Eye exam is current. Currently taking: No [...] HS. PLAN: See below. CPM Retinopathy: Negative PURIFICATION DIRECTOR. Exam within last 12 months: yes Date: 10/16/20. Had bilat cataract extraction Dr. Lopez. Sees Dr. Browne in [place] every year routinely. Nephropathy: Negative Creat: 1.08; [...] Call if BG consistently <70 or >250. [phone] Continue to check blood sugar 4 times [...] CNP 06/20/21 2:55 PM documented in this [id number] History of Present illness Narrative* Mary Vargas [...] being taken. Patient does not see a general utility maintenance repairer. Eye exam is current. Currently taking: No [...] HS. PLAN: See below. CPM Retinopathy: Negative PURIFICATION DIRECTOR. Exam within last 12 months: yes Date: 10/16/20. Had bilat cataract extraction Dr. Lopez. Sees Dr. Browne in [place] every year routinely. Nephropathy: Negative Creat: 1.08; [...] Call if BG consistently <70 or >250. [phone] Continue to check blood sugar 4 times [...] in this encounterOhioHealthDischarge summary Author John Brandon [facility] Note Date/Time April 03, 2025 4:11a m [facility] Medical Records Department [address] [place] [address] Emergency Department Summary 04/03/25 MR#: [id number] Acct: [id number] Name: ENOC ARMANDO Rep #:[id number] : 1945 79 From: John Ramirez PCP: [...] AdvReac Other Verified 04/03/25 00:16 (Glucocorticoids) (steroids) Mfctucv-Bkn-Myv Reductase AdvReac Other Verified 04/03/25 00:16 Inhibitor [...] Consults: internal medicine only sees Dr. Hwang) [facility] Narrative: The patient was initially tachycardic, [...] to ICU This note was generated with [employer] dictation software. It may contain incorrectwords, spelling, [...] 76.4 H Lymph % (Auto) 13.5 L Sawyer % (Auto) 7.0 Eos % (Auto) 1.9 [...] possibly multifocal congestion and/or pneumonia. [facility] [address] Discharge Plan Triage Chief Complaint: Shortness of [...] Instructions: 0.4 mg orally 3x/week; Takes on //WED; amlodipine [Norvasc] 10 mg Tablet 10 mg [...] MD [Primary Care Provider] - Print Language: Botswanan What to do if you have Problems For any increased pain, shortness of breath, bleeding, nausea or vomiting, chestpain, or any unexpected problems, contact your Primary Care Provider. Call [facility] ([phone]) or report to the closest Emergency Room. Call 911 if necessary. 04/03/251 <Electronically signed by John Brandon DO> Cosigner Signature (if applicable): CC: Dr. Ryley Jeter MD ~ Signed [facility] Work Phone: Discharge summary Author Grace [facility] Note Date/Time April 10, 2025 5:09 pm [facility] Medical Records Department [address] [place] [address] Instructions for Home/Discharge Instructions 04/10/25 1527 MR#: [id number] Acct: [id number] Name: ENOC ARMANDO Rep #:[id number] : 1945 79 From: Grace Arnold MD [...] MD; Dr. Smooth Luis MD ~ Signed [facility] Work Phone: Discharge summary Author Arnulfo [facility] Note Date/Time April 19, 2025 3:48 am [facility] Medical Records Department [address] [place] [address] Emergency Department Summary 04/19/25 MR#: [id number] Acct: [id number] Name: ENOC ARMANDO Rep #:[id number] : 1945 79 From: Arnulfo Jose DO PCP: Dr. Ryley Jeter MD Status:ADM IN Location: ICU ICU01-1 HPI History of Present Illness Chief Complaint: Shortness of Breath Informant: patient, spouse/S.O. and EMS Narrative Narrative: Patient is an 79-year-old male with past medical history of COPD and CHF as wellas insulin-dependent diabetes. He was admitted to the hospital on April 03 secondary to respiratory distress. At that time he actually underwent dialysis short-term based on his symptoms. Patient states he was discharged home and is now wearing 4 to 6 L of nasal cannula oxygen 24/05. He states that despite wearing his oxygen and taking his medication over the last 24 hours he has had increasing shortness of breath. He denies any fevers or chills but with the worsening shortness of breath has concern for repeat volume overload and therefore comes in for evaluation The patient does admit to smoking half a pack a day for 60 years but denies any formal diagnosis of COPD [facility] Medical History Non-STEMI (non-ST elevated myocardial infarction) Bradycardia MADONNA (acute kidney injury) Anemia LV dysfunction Chronic anemia Tobacco use COPD (chronic obstructive pulmonary disease) HLD (hyperlipidemia) HTN (hypertension) BPH (benign prostatic hyperplasia) Chronic low back pain with sciatica Diabetes mellitus, type 2 CKD (chronic kidney disease), stage III Pneumonia COVID Wears glasses Wears dentures Home Medications ?Medication ?Instructions ?Recorded ?Last Taken ?Type amlodipine 10 mg tablet (Norvasc) 10 mg PO 1200 08/12/21 History insulin glargine 100 unit/mL (3 15 unit subcut QPM 03/21 Unknown History mL) subcutaneous pen (Lantus Solostar U-100 Insulin) insulin lispro 100 unit/mL 0 unit subcut TID SLIDING S JENNIFER 08/05/21 Unknown History subcutaneous pen tamsulosin 0.4 mg capsule (Flomax) 0.4 mg PO .COMPLEX urination 08/05/21 Unknown History ezetimibe 10 mg tablet 10 mg PO DAILY 04/06/24 Unkn own History metoprolol succinate 25 mg 25 mg PO DAILY 04/06/24 Unk nown History tablet,extended release 24 hr blood sugar diagnostic (Contour 09/12/24 Unknown Hist ory Next Test Strips) hydralazine 50 mg tablet 50 mg PO Q8H 04/03/25 Unknow n History pantoprazole 40 mg tablet,delayed 40 mg PO DAILY #30 t abs 04/10/25 Unknown Rx release spironolactone 25 mg tablet 25 mg PO DAILY 04/19/25 Un known History Allergy/AdvReac Type Severity Reaction Status Date / Time spironolactone AdvReac Intermediate Hyperkalemi Verified 04/19/25 03:10 a Corticosteroids AdvReac Other Verified 04/03/25 00:16 (Glucocorticoids) (steroids) Llbgesi-NXG-VsF Reductase AdvReac Other Verified 04/03/25 00:16 Inhibitor (Deucmig-Fuh-Hfu Reductase Inhibitor) Family History Mother COPD (chronic obstructive pulmonary disease) Father CAD (coronary artery disease) Heart disease Surgical History Hx of cystoscopy Hx of colonoscopy Hx of left cataract extraction Hx of right cataract extraction Social History household members: spouse Smoking Status: Current every day smoker tobacco type: cigarettes alcohol intake: never substance use type: does not use ROS ROS ED Constitutional Constitutional ED: Denies chills or fever(s) ENT ENT ED: Denies rhinorrhea or sore throat Cardiovascular Cardiovascular: Reports orthopnea and racing heartbeat; Denies chest pain or palpitations Respiratory/Chest Respiratory/Chest: Reports cough, dyspnea, dyspnea on exertion, orthopnea and sputum Gastrointestinal Gastrointestinal: Denies abdominal pain, diarrhea, nausea or vomiting Genitourinary Genitourinary ED: Denies dysuria Musculoskeletal Musculoskeletal: Denies myalgias Integumentary Denies rash Neurologic Neurologic: Reports weakness; Denies headache(s) Hematologic/Lymphatic Hematologic/Lymphatic: Denies easy bleeding or easy bruising Allergic/Immunologic Allergic/Immunologic ED: Denies mouth swelling or tongue swelling EXAM Physical Exam Const Vital Signs: 04/19/25 00:00 04/19/25 00:04 04/19/25 00:17 Temperature 96.8 F L Temperature Source Axillary Pulse Rate 107 H 93 Respiratory Rate 26 H 22 H Respiratory Effort Short of Breath Labored Respiratory Pattern Tachypnea Tachypnea Blood Pressure 173/76 H Blood Pressure Mean 108 Pulse Ox 100 Oxygen Delivery Method Non-Rebreather Oxygen Flow Rate (L/min) 15 Fraction of Inspired Oxygen (FIO2) 04/19/25 00:29 04/19/25 00:30 04/19/25 00:32 Temperature Temperature Source Pulse Rate 93 95 Respiratory Rate 17 21 H Respiratory Effort Respiratory Pattern Blood Pressure 146/51 H Blood Pressure Mean 82 Pulse Ox 94 97 97 Oxygen Delivery Method High Flow Oxygen Flow Rate (L/min) 10 Fraction of Inspired Oxygen (FIO2) 04/19/25 00:33 04/19/25 00:45 04/19/25 00:50 Temperature Temperature Source Pulse Rate 94 91 Respiratory Rate 19 H 18 Respiratory Effort Respiratory Pattern Normal Blood Pressure 146/58 H Blood Pressure Mean 86 Pulse Ox 98 97 Oxygen Delivery Method Oxygen Flow Rate (L/min) Fraction of Inspired Oxygen (FIO2) 50 04/19/25 01:00 04/19/25 01:10 04/19/25 01:15 Temperature 98.3 F Temperature Source Temporal Pulse Rate 92 95 92 Respiratory Rate 14 23 H 16 Respiratory Effort Respiratory Pattern Blood Pressure 140/52 H 140/52 H 141/57 H Blood Pressure Mean 77 81 81 Pulse Ox 98 97 Oxygen Delivery Method Oxygen Flow Rate (L/min) Fraction of Inspired Oxygen (FIO2) 04/19/25 01:30 04/19/25 01:45 04/19/25 02:00 Temperature 97.7 F L Temperature Source Temporal Pulse Rate 92 92 92 Respiratory Rate 14 14 23 H Respiratory Effort Respiratory Pattern Blood Pressure 140/56 H 134/56 H 140/53 H Blood Pressure Mean 81 78 82 Pulse Ox 94 95 94 Oxygen Delivery Method Airvo Oxygen Flow Rate (L/min) 50 Fraction of Inspired Oxygen (FIO2) 04/19/25 02:00 04/19/25 02:15 04/19/25 02:19 Temperature Temperature Source Pulse Rate 94 92 Respiratory Rate 18 Respiratory Effort Respiratory Pattern Blood Pressure 132/54 H 149/57 H 140/53 H Blood Pressure Mean 77 82 Pulse Ox 93 Oxygen Delivery Method Oxygen Flow Rate (L/min) Fraction of Inspired Oxygen (FIO2) 04/19/25 02:19 04/19/25 02:22 04/19/25 02:30 Temperature 97.7 F L Temperature Source Pulse Rate 92 92 90 Respiratory Rate 19 H 19 H 15 Respiratory Effort Respiratory Pattern Blood Pressure 140/53 H 140/53 H 132/58 H Blood Pressure Mean 79 82 79 Pulse Ox 94 94 94 Oxygen Delivery Method Oxygen Flow Rate (L/min) Fraction of Inspired Oxygen (FIO2) 04/19/25 02:45 04/19/25 03:00 Temperature 97.7 F L Temperature Source Oral Pulse Rate 90 97 Respiratory Rate 18 16 Respiratory Effort Respiratory Pattern Blood Pressure 136/61 H 134/54 H Blood Pressure Mean 83 80 Pulse Ox 92 98 Oxygen Delivery Method Airvo Oxygen Flow Rate (L/min) 50 Fraction of Inspired Oxygen (FIO2) Positive well nourished and well developed Constitutional Narrative: Patient is in respiratory distress with tachypnea and accessory muscle use General Appearance ED: well developed; Negative for pallor HEENT Reports dry mucous membranes HEENT Narrative: No tongue or lip swelling no oral lesions no airway edema or compromise Mucous membranes are dry and tacky without secondary findings to suggest infection Mouth ED: Yes dry mucous membranes Mouth: dry mucous membranes Eyes PERRL and EOMs intact bilaterally General Eye ED: Negative for pale conjunctiva or scleral icterus Neck supple and no JVD Neck Narrative: No nuchal rigidity or meningeal signs JVD is noted bilaterally Chest Wall palpation of chest normal Chest Narrative: No bony deformity or subcutaneous emphysema noted Resp Resp Narrative: Patient is in respiratory distress with tachypnea and accessory muscle use. He can only speak in 1-2 word sentences. Breath sounds are severely diminished throughout with diffuse inspiratory and expiratory wheezing and faint crackles noted in the bilateral bases Cardio regular rhythm Rate: tachycardic and other Other Details: Tachycardic rate with regular rhythm Radial and carotid pulses are equal and symmetric GI normal to inspection, nondistended, normoactive bowel sounds, non-tender, non-distended and no masses GI Narrative: No voluntary guarding or rigidity or pulsatile mass No fluid wave noted Auscultation: normoactive bowel sounds Palpation: soft Extremity Extremity Narrative: +2-3 pitting edema to the bilateral lower extremities which is slightly greater on the right Negative Homans' sign bilaterally Neuro oriented x3, CN's II-XII intact bilaterally and no sensory deficits noted Sensorium / Orientation: alert Motor Exam: strength 5/5 throughout Psych mental status grossly normal Skin no rashes or lesions noted General Skin Exam: Negative for jaundice or pallor MDM MDM MDM Narrative Medical decision making narrative: Patient arrived to the ER in respiratory distress. He was now requiring 10 to 15 L to keep his pulse ox above 90%. Despite the pulse ox reading above 90 he still had dyspnea with speech and increased work of breathing. As he admits to smoking for roughly 60 years and does have both inspiratory and expiratory wheezing I had concern for COPD exacerbation and therefore he was given albuterol and DuoNeb treatments as well as 125 of Solu-Medrol. There is also concern for volume overload based on his recent hospitalization and peripheral edema. His chest x-ray was obtained and compared to April 03 and he has worseningvascular congestion and now pleural effusions indicating his shortness of breathis most likely volume overload/CHF. Secondary to this he was transitioned to Airvo at 50 L and had improvement of his work of breathing and symptoms. He wasalso given sublingual nitro and oral captopril to reduce preload and afterload. He is chronically anemic and his hemoglobin is at baseline therefore I feel no need for blood transfusion. Creatinine is elevated at 2.7 but this is improved compared to recent hospitalization at 3.5. However because of the high value I do not feel that diuretics are appropriate and therefore they will be held at this time. With his recent hospitalization and the fact his right leg is slightly more swollen than the left there was concern for potential pulmonary embolus. The D-dimer is elevated at 2.17 but I cannot perform a CTA of the chest based on his chronic kidney disease. However he does not have pleuritic chest pain or calf tenderness so this is most likely a false elevation. The patient is also hyperkalemic and secondary to his he will be given calcium gluconate to stabilize cardiac membranes as well as insulin and Kayexalate to help with resolution of this. At this time he has had improvement with the provided medication and the Airvo but his risk for recurrent symptoms or need for progression to BiPAP or intubation is high and therefore I feel that he should be placed in the ICU. The case was discussed with the hospitalist who agrees with this and therefore he will be admitted to their care at this time for continued treatment of his CHF exacerbation/respiratory failure History & Record Review Discussion w/independent historian: EMS personnel, Patient and Family Lab Data Attestation: I reviewed the patient's lab results. Labs: Laboratory Results - last 24 hr 04/19/25 04/19/25 00:07 02:54 WBC 14.0 H RBC 2.93 L Hgb 8.8 L Hct 27.5 L MCV 93.9 MCH 30.0 MCHC 32.0 RDW Std Deviation 46.1 H RDW Coeff of Humaira 13.4 Plt Count 289 MPV 11.4 Immature Gran % (Auto) 0.500 Neut % (Auto) 82.3 H Lymph % (Auto) 10.0 L Sawyer % (Auto) 5.7 Eos % (Auto) 1.0 Baso % (Auto) 0.5 Absolute Neuts (auto) 11.5 H Absolute Lymphs (auto) 1.40 Nucleated RBC % 0 D-Dimer Quant (PE/DVT) 2.17 H* Sodium 136 Potassium 5.9 H Chloride 100 Carbon Dioxide 20.9 L Anion Gap 15 BUN 65 H Creatinine 2.73 H Estim Creat Clear Calc 19.84 L Est GFR (MDRD) Non-Af 23 L BUN/Creatinine Ratio 23.8 H Glucose 406 H Calcium 8.6 Magnesium 2.3 [place] [address] H Procalcitonin 0.10 POC Glucose 437 H Radiography Diagnostic Testing: Clinical Impression(s) from Imaging Studies Chest X-Ray 04/19/25 01:00 IMPRESSION: Increased mild bilateral pleural effusions. Increased passive atelectatic airspace disease of the lower lobes. Increased pulmonary venous congestion and interstitial edema. Enlarged cardiac silhouette. Reading Location: [place] [address] Chest x-ray as interpreted by the emergency medicine physician reveals bilateralpulmonary vascular congestion with bilateral pleural effusions which is increased from April 03 Management Discussion w/another healthcare provider: Hospitalist Critical Care Time Critical Care Time: Yes Critical care time (excluding procedures): Discussing w/Patient &/or Family/CareGiver, Discussing w/Consultants and - (Please note critical care time of 31 minutes) Discharge Plan Dx/Rx/DC Orders Clinical Impression: CHF exacerbation, COPD exacerbation, Acute hypoxic respiratory failure, Hyperkalemia, CKD (chronic kidney disease), stage IV, Chronic anemia Disposition Disposition: Acute Care Hospital [facility] What to do if you have Problems For any increased pain, shortness of breath, bleeding, nausea or vomiting, chestpain, or any unexpected problems, contact your Primary Care Provider. Call [facility] ([phone]) or report to the closest Emergency Room. Call 911 if necessary. 04/19/25 0348 <Electronically signed by Arnulfo Jose DO> Cosigner Signature (if applicable): CC: Dr. Ryley Jeter MD ~ Signed [facility] Work Phone: Discharge summary Author Malika Fonseca [facility] Note Date/Time April 22, 2025 1:13 pm [facility] Medical Records Department [address] [place] [address] Discharge Summary 04/22/25 1301 MR#: [id number] Acct: [id number] Name: ENOC ARMANDO Rep #:[id number] : 1945 79 From: Malika Fonseca DO PCP: Dr. Ryley Jeter MD Status:ADM IN Location: [place] [address] Providers Date of Admission: 04/19/25 Primary Care Physician: Ryley Jeter MD Consultations 04/19/25 04:03 Consult: Nephrology Routine Consulting Provider: Denisha Thompson Reason for Consult: MADONNA on CKD; stage IV with Hyperkalemia plus recent HD. EMERGENT Consult: No Notified: Yes Date Notified: 04/19/25 Time Notified: 06:27 Method of Notification: Answering Service 04/20/25 09:07 Consult: Cardiology Routine Consulting Provider: Breezy Campbell Reason for Consult: CHF EMERGENT Consult: No Notified: Yes Date Notified: 04/20/25 Time Notified: 09:07 Method of Notification: Verbal Reason For Visit: AE CHF, AE COPD, ACUTE HYPOXIC RESPIRATORY FAILURE Diagnosis Discharge Diagnosis (1) HFrEF (heart failure with reduced ejection fraction): Status: Acute Code(s): I50.20 - Unspecified systolic (congestive) heart failure Plan: cards following. metoprolol changed to carvedilol. On IV furosemide. On spironolactone No ACEi/ARB given CKD. (2) COPD exacerbation: Status: Chronic Code(s): J44.1 - Chronic obstructive pulmonary disease with (acute) exacerbation Plan: suspected. He has never been formerly tested with PFTs, but does have an extensive smoking history. on methylpred and BDs. Plan to discharge with prednisone burst, albuterol nebs and MDI He has been advised to follow up with pulmonary as outpt. Plan CKD IV: stable. Cautious continue IV furosemide. HTN: amlodipine dc'd given LE edema. DM1: glargine and SSI. a1c 7.1% BPH: tamsulosin anemia: stable. Heme positive stools, which were positive last admission earlierthis month. Hemoglobin has remained stable. Would defer GI evaluation to outpt given the stability and current respiratory issues. VTE prophylaxis: SCDs. Disposition: DC home. Patient will need 2 L of oxygen continuous. I have reviewed the oxygen testing, and this patient qualifies for the home equipment and portability. The patient is mobile in the home and the community. Medications at Discharge Home Medications insulin glargine 100 unit/mL (3 mL) subcutaneous pen (Lantus Solostar U-100 Insulin) 15 unit subcut QPM 08/05/21 insulin lispro 100 unit/mL subcutaneous pen 0 unit subcut TID SLIDING SCALE 08/05/21 tamsulosin 0.4 mg capsule (Flomax) 0.4 mg PO DAILY urination 08/05/21 ezetimibe 10 mg tablet 10 mg PO DAILY 04/06/24 blood sugar diagnostic (Contour Next Test Strips) 09/12/24 hydralazine 50 mg tablet 50 mg PO Q8H 04/03/25 pantoprazole 40 mg tablet,delayed release 40 mg PO DAILY #30 tabs 04/10/25 albuterol sulfate 2.5 mg/3 mL (0.083 %) solution for nebulization 2.5 mg (3 mL) inhalation Q2H PRN PRN SOB &/OR WHEEZING 30 days #180 mL 04/22/25 albuterol sulfate 90 mcg/actuation breath activated powder inhaler (ProAir RespiClick) 2 inh inhalation Q6H PRN shortness of breath or wheezing #1 ea 04/22/25 carvedilol 25 mg tablet 25 mg PO BIDCM #60 tabs 04/22/25 furosemide 40 mg tablet 40 mg PO BIDLX #60 tabs 04/22/25 isosorbide mononitrate 30 mg tablet,extended release 24 hr 30 mg PO DAILY #30 tabs 04/22/25 nebulizer and compressor #1 ea 04/22/25 prednisone 20 mg tablet 40 mg (2 x 20 mg) PO DAILY #10 tabs 04/22/25 Hospital Course Procedures None Summary of Care Provided Minutes Spent on Discharge: 35 Hospital Course: Patient presents with shortness of breath. Also concerned he may have heart failure and so they started on IV furosemide and cardiology was consulted. Creatinine did go up but remained stable so his furosemide was adjusted to dailyfrom twice daily down to oral. More concerning is that patient may have underlying, undiagnosed COPD. Patient has a heavy smoking history. Patient was started on bronchodilators as well as Solu-Medrol and did have improvement and did have improved aeration. So I feel some of his breathing may be related with undiagnosed COPD. He will be discharged with prednisone burst, nebulizer, aerosols. Weight / BMI Weight Weight: 66.45 kg Body Mass Index (BMI) 23.6 ABG / Lab / Microbiology Data 04/20/25 06:16 04/22/25 03:49 Laboratory: Laboratory Results - last 24 hr 04/21/25 16:05: POC Glucose 279 H 04/21/25 21:08: POC Glucose 341 H 04/22/25 03:49: Sodium 137, Potassium 4.2, Chloride 100, Carbon Dioxide 23.0, Anion Gap 14, BUN 89 H, Creatinine 2.97 H, Estim Creat Clear Calc 17.60 L, Est GFR (MDRD) Non-Af 20 L, BUN/Creatinine Ratio 30.0 H, Glucose 240 H, Calcium 8.6,Magnesium 2.7 H 04/22/25 06:24: POC Glucose 202 H Microbiology: Microbiology 04/21/25 09:30 Stool Stool Occult Blood (MINE) - Final Occult Blood Positive 04/19/25 00:25 Mucosa - Nose SARS-CoV-2, Influenza & RSV (PCR) - Final D/C Instructions Discharge Diet: Low fat / Low cholesterol and - (1.5 L (50 ounces) of fluid per day.) DC O2, CPAP, BIPAP Needs Home O2 Discharge instructions: Yes Type of respiratory needs?: Oxygen Oxygen frequency: Continuous Continuous oxygen liters per minute: 2 DC home with Oxygen: Yes Home O2 MD Review: I have reviewed the oxygen testing, and the patient qualifies for home oxygen equipment and portability. The patient is mobile in the home and the community. Meaningful Use Info Meaningful Use Meaningful Use Diagnoses (Choose all that apply): CHF CHF PASCALE/ARB ordered at discharge?: No Reason PASCALE/ARB not ordered?: Worsening renal disease Documented LVEF (%): 40 Ischemic Stroke Statin Dosing Therapy Reference: STATIN DOSE THERAPY REFERENCE: * Patients > 75 years receive moderate or high dose statin therapy. * Patients 75 years or YOUNGER should receive HIGH intensity statin dose unless contraindicated. You will be required to document reason for non-treatment if statin daily dose does not meet guidelines. HIGH DOSE STATIN THERAPY DAILY Atorvastatin > than or = to 40 mg Rosuvastatin > than or = to 20 mg Amlodipine + Atorvastatin > than or = to 2.5/40 mg Ezetimibe + Simvastatin 10/80 mg Simvastatin 80mg Discharge Plan Admission Admit Date/Time: 04/19/25 03:06 Primary Reason for Your Visit: CHF exacerbation Attending Provider: Malika Fonseca Primary Care Provider: Ryley Jeter Consulting Providers: Nancy Rizzo; Denisha Thompson; Jose Moore; Breezy Campbell Instructions Additional Instructions / Restrictions: You had fluid buildup related with heart failure but also feel that you have some underlying lung disease such as COPD. I do recommend a follow-up with pulmonology to have formal test (pulmonary function test) to see if you do have underlying COPD or asthma. Discharge Orders/Prescriptions Prescriptions: New albuterol sulfate 2.5 mg /3 mL (0.083 %) Solution For Nebulization 2.5 mg inhalation Q2H PRN PRN (Reason: SOB &/OR WHEEZING) 30 Days Qty: 180 0RF furosemide 40 mg Tablet 40 mg PO BIDLX Qty: 60 0RF carvedilol 25 mg Tablet 25 mg PO BIDCM Qty: 60 0RF isosorbide mononitrate 30 mg Tablet Extended Release 24 Hr 30 mg PO DAILY Qty: 30 0RF prednisone 20 mg tablet 40 mg PO DAILY Qty: 10 0RF ProAir RespiClick 90 mcg/actuation aerosol powdr breath activated 2 inh inhalation Q6H PRN (Reason: shortness of breath or wheezing) Qty: 1 0RF (DME) nebulizer and compressor Device See Rx Instructions .Route Qty: 1 0RF Rx Instructions: As directed Continued ezetimibe 10 mg tablet 10 mg PO DAILY tamsulosin [Flomax] 0.4 mg Capsule 0.4 mg PO DAILY insulin lispro 100 unit/mL Insulin Pen 0 unit SUBCUT TID insulin glargine [Lantus Solostar U-100 Insulin] 100 unit/mL (3 mL) Insulin Pen 15 unit SUBCUT QPM hydralazine 50 mg tablet 50 mg PO Q8H pantoprazole 40 mg tablet,delayed release (DR/EC) 40 mg PO DAILY Qty: 30 2RF (DME) Contour Next Test Strips Strip MISCELLANEOUS 4X/DAY Discontinued metoprolol succinate 25 mg tablet extended release 24 hr 25 mg PO DAILY amlodipine [Norvasc] 10 mg Tablet 10 mg PO 1200 spironolactone 25 mg tablet 25 mg PO DAILY Referrals / Follow Up: [facility] [Provider Group] - Within 1 Month Ryley Jeter MD [Primary Care Provider] - Within 2 Weeks Disposition Disposition (needs filled in before D/C Order can be placed): Home, Self Care Charges/Coding Visit Charges Inpatient E&M: 55330 Disch Hosp >30min 04/22/25 1313 <Electronically signed by Malika Fonseca DO> Cosigner Signature (if applicable): CC: Dr. Ryley Jeter MD; Dr. Malika Fonseca DO~ Signed [facility] Work Phone: Evaluation note* Diagnosis Type [...] diabetic neuropathy (CMS/HCC) documented in this encounter [facility] Work Phone: Evaluation note* Diagnosis Type [...] heart failure (CMS/HCC) documented in this encounter [facility] Work Phone: Evaluation note* Diagnosis 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- Primary Dyslipidemia Other and unspecified hyperlipidemia Congestive heart failure, unspecified HF chronicity, unspecified heart failure type (HCC) [facility] Work [facility]: [facility] note* Diagnosis NSTEMI (non-ST elevated myocardial infarction) (CMS/HCC)- Primary Acute myocardial infarction, subendocardial infarction, episode of care unspecified MADONNA (acute kidney injury) ([facility]) 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) Type 1 diabetes mellitus with other specified complication ([facility]) documented in this encounter [facility] Work Phone: Evaluation note* Diagnosis NSTEMI [...] diabetic neuropathy (Multi) documented in this encounter [facility] Work Phone: Evaluation note* Diagnosis Type [...] with diabetic neuropathy documented in this encounter [facility] Work Phone: Evaluation note* Diagnosis Type [...] [facility] Diagnosis Coronary 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- Primary documented in [...] of cerebral infarction Coronary 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- Primary Claudication in [...] neuropathy (HCC)- Primary [facility] Diagnosis Bilateral carotid artery stenosis Occlusion [...] with diabetic neuropathy documented in this encounter [facility] Work Phone: Evaluation note* Diagnosis Bilateral carotid artery stenosis Occlusion and stenosis of carotid artery without mention of cerebral infarction Coronary 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- Primary NSTEMI (non-ST [...] Unspecified essential hypertension [facility] Diagnosis Onset Date Resolution Status Admit Date Acute hypoxic respiratory failure ac [place] April 03, 2025 4:16am [facility] Work Phone: Evaluation note* Diagnosis Bilateral carotid artery stenosis Occlusion and stenosis of carotid artery without mention of cerebral infarction Type 1 diabetes mellitus with diabetic neuropathy (HCC) documented [facility] Diagnosis Stage 3b chronic kidney disease (Multi)- Primary Essential hypertension Unspecified essential hypertension Pure hypercholesterolemia Type 1 diabetes mellitus with diabetic neuropathy Stage 3b chronic kidney disease (Multi)- Primary Acute on chronic systolic (congestive) heart failure Type 1 diabetes mellitus with diabetic neuropathy Stage 3b chronic kidney disease (Multi)- Primary Edema, unspecified type Anemia due to stage 4 chronic kidney disease Essential hypertension Unspecified essential hypertension Type 1 diabetes mellitus with diabetic neuropathy documented in this encounter [facility] Work Phone: History and physical note Author Dyana Hwang [facility] Note Date/Time April 03, 2025 4:42a m [facility] Medical Records Department [address] [place] [address] H&P Exam - Hospitalist 04/03/25 0402 MR#: [id number] Acct: [id number] Name: ENOC ARMANDO Rep #:[id number] : 1945 79 From: Dyana Hwang MD [...] pathology, Tobacco use who presents to the [facility] ED on 04/03/2025 with history of [...] x 1 and sublingual nitroglycerin x 1. [facility] Medical History (Updated 04/03/25 @ 04:40 by [...] AdvReac Other Verified 04/03/25 00:16 (Glucocorticoids) (steroids) Yrryewk-HSC-PxZ Reductase AdvReac Other Verified 04/03/25 00:16 Inhibitor (Mgvgule-Qbw-Jsy Reductase Inhibitor) Family History (Updated 04/03/25 @ [...] 76.4 H, Lymph % (Auto) 13.5 L, Sawyer % (Auto) 7.0, Eos % (Auto) 1.9, [...] possibly multifocal congestion and/or pneumonia. Reading Location: [place] [address] Chest CTA 04/03/25 02:34 IMPRESSION: Mild bilateral pleural effusions. Passive atelectatic airspace disease/airspace consolidations of the lower lobes. Bilateral chronic perihilar interstitial pulmonary thickening with associated mild multifocal ground-glass densities, possibly superimposed pneumonia. Mild diffuse spondylosis. No CT evidence of pulmonary embolus or aortic dissection. Reading Location: [place] [address] Assessment & Plan Assessment/Plan (1) Acute hypoxic respiratory failure: PLAN: Plan The patient is an 79 y/o M w/ PMHx: CKD stage III unclear subtype per GFR trending, Chronic macrocytic anemia, HTN, HLD, Diabetes mellitus type II, BPH with obstructive pathology, Tobacco use who presents to the [facility] ED on 04/03/2025 with history of [...] any pulmonary embolus or aortic dissection, initial [id number] with repeat delta troponin 76. Will maintain [...] 16 minutes. Charges/Coding Visit Charges Inpatient E&M: 60507 Init Hosp L3 Procedures Hospitalists Procedures: 33519 Advncd Care Plan 30 Min 04/03/25 0442 <Electronically signed by Dyana Hwang MD> Cosigner Signature (if applicable): CC: Dr. Dyana Hwang MD; Dr. Ryley Jeter MD~ Signed [facility] Work Phone: History of Present illness Narrative* At least a 5 yr HX of LBP (previous HX of sciatica). No recent film studies have been done. He willbe a low fall risk. The patient will continue his therapy at [facility] [place]. Physical findings include limited trunk ROM with discomfort. Continue with trunk mech trng, STW (needling), and core stability/ROM exercises. * Clinical Presentation: Stable and/or uncomplicated characteristics. * Level of Complexity: low * Problem List: activity limitations, ADLs/IADLs/self care skills, decreased functional level, decreased knowledge of HEP, decreased knowledge of precautions, fall risk, gait/locomotion, pain, range ofmotion/joint mobility and strength. [facility] Work Phone: History of Present illness NarrativePatient identified by name and date of . Patient demonstrated good understanding of exercises and stretching with cues to complete after instruction. He presented with palpable tension in gluts and QL and paraspinals that responded well to STW.[facility] Work Phone: History of Present illness Narrative* [...] noted d/t tightness in LB. [facility] Work Phone: History of Present illness Narrative* Tightness along the ITB and QL continues. * Palpable spams in both regions with with STW. * Fair trunk flexibility with SKTC. [facility] Work Phone: History of Present illness NarrativePatient identified by name and date of . Patient was able to progress with several exercises this date with addition of teri disc and focus on maintain upright posture. He presented with increased muscle tension in IT band and QL this date.[facility] [employer] Work Phone: History of Present illness NarrativePatient identified by name and date of . Added IT band stretch this date and instructed for HEP due to palpable tension. Reviewed importance of HEP even if he feels sore to increased with ROM and decrease with muscle tension, he verbalized good understanding. Patient continues to present with palpable muscle tension/restrictions in his piriforms.[facility] Work Phone: History of Present illness NarrativePatient identified by name and date of . Added IT band stretch this date and instructed for HEP due to palpable tension. Reviewed importance of HEP even if he feels sore to increased with ROM and decrease with muscle tension, he verbalized good understanding. Patient continues to present with palpable muscle tension/restrictions in his piriforms. [facility] Work Phone: History of Present illness NarrativePatient [...] inclusion of trigger point dry needling.[facility] Work Phone: History of Present illness NarrativeSTW [...] a TENS unit for the patient. [facility] Work Phone: reason for referral (narrative)* Consultation (Routine) - Authorized Specialty Diagnoses / Procedures Referred By Jmiy stacy Referred To Contact Nephrology Diagnoses Stage 3b chronic kidney disease (CMS/HCC) Procedures Follow Up In Nephrology Ayanna Albert DO [address] [place] [address] Referral ID Status Reason Start Date Expiration Date V isits Requested Visits Authorized [id number] Authorized 08/25/2023 08/24/2024 1 1 [facility] Work Phone: Reason for referral (narrative)* Consultation (Routine) - Authorized Specialty Diagnoses / Procedures Referred By Jimy stacy Referred To Contact Nephrology Diagnoses Stage 3b chronic kidney disease (Multi) Procedures Follow Up In Nephrology Maricruz Albert APRN-CNP, DNP [address] [place] [id number] Referral ID Status Reason Start Date Expiration Date V isits Requested Visits Authorized [id number] Authorized 02/24/2024 02/23/2025 1 1 [facility] Work Phone: Reason for referral (narrative)No reason for referral information availableWKettering [facility] Work Phone: Reason for visit Narrative* Initial Evaluation . lumbar DDD. * Referred by: [facility] Work Phone: Reason for visit Narrative* Auth/Cert Specialty Diagnoses / Procedures Referred By Jimy stacy Referred To Contact Diagnoses NSTEMI (non-ST elevated myocardial infarction) (HCC) NSTEMI Referral ID Status Reason Start Date Expiration Date Visits Re quested Visits Authorized [id number] 1 1 [facility] Auth/Cert (Routine) Specialty Diagnoses / Procedures Referred By Jimy stacy Referred To Contact Diagnoses Cardiovascular stress test abnormal Fatigue, unspecified type SOB (shortness of breath) Cardiovascular stress test abnormal [R94.39] Fatigue, unspecified type [R53.83] SOB (shortness of breath) [R06.02] Procedures Left Heart Cath Referral ID Status Reason Start Date Expiration Date Visits Re quested Visits Authorized [id number] 1 1 [facility] Instructions * Patient Instructions - Alexandra Givens [...] Purpose Family History No Family History Records Found Relationship Condition Age at Onset Recorded Date/T samantha mother Chronic obstructive pulmonary disease Unk nown father Coronary artery disease Unknown Cardiac disease Unknown Advance Directives No Advanced Directives Records FoundDocuments on File Type Date Recorded Patient Roll Up Guider Operator Expl anation Advance Directives and Living Will Documents on File Type Date Recorded Patient Roll Up Guider Operator Expl anation Advance Directives and Livin g Will 10/18/2020 1:33 PM Documents on File Type Date Recorded Patient Roll Up Guider Operator Expl anation Advance Directives and Livin g Will 10/18/2020 1:33 PM Documents on File Type Date Recorded Patient Roll Up Guider Operator Expl anation Advance Directives and Livin g Will 02/21/2021 3:38 PM Documents on File Type Date Recorded Patient Roll Up Guider Operator Expl anation Advance Directives and Livin g Will 02/21/2021 3:38 PM Latest Code Status on File Code Status Date Activated Date Inactivated Comments Full Code 10/11/2023 5:02 AM Question Answer Comments Plan of Care: Code Status Discussion Completed Decision Maker: Patient Advance Directive Response Recorded Date/ Time Living Will Yes August 05 7:59am Power of Hand Icer Yes August 05 7:59am Latest Code Status [...] Documents on File Type Date Recorded Patient Roll Up Guider Operator Expl anation Advance Directives and Livin g [...] Documents on File Type Date Recorded Patient Roll Up Guider Operator Expl anation Advance Directives and Livin g [...] Do you have a Healthcare Power of Hand Icer? No April 03, 2025 5:17am Advance Directive Response Recorded Date/ Time Do you have a Healthcare Power of Hand Icer? No April 03, 2025 5:17am Do you have a Healthcare Power of Hand Icer? Yes April 19, 2025 12:03am Advance Directive Response Recorded Date/ Time Do you have a Healthcare Power of Hand Icer? No April 03, 2025 5:17am Do you have a Healthcare Power of Hand Icer? Yes April 19, 2025 4:03am Name of Medical Power of Hand Icer Alice - April 19, 2025 4:03am History of Present Illness * Keeley Patton, DRAPERY AND UPHOLSTERY MEASURER - 11/11/2018 8:11 AM EST Formatting of this note may be different from the original. Patient ID: Enoc Armando is a 72 y.o. male Subjective: HPI: Enoc Armando presents for follow-up of Type 1 diabetes The initial diagnosis of diabetes was [id number] years ago in 1994. Disease course has [...] being taken. Patient does not see a general utility maintenance repairer. Eye exam is current. Patient with a [...] blood sugar though. PLAN: CPM. 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 Exam within last 12 months: yes Date: 08/2018 . Had bilat cataract extraction Dr. Lopez. Sees Dr. Browne in [place] every year routinely. Nephropathy: Negative Creat: 1.2, [...] Call if BG consistently <70 or >250. [phone] Continue to check blood sugar 4 times [...] being taken. He does not see a general utility maintenance repairer.Eye exam is current (Jun 16). The following [...] between apt for further adjustments Retinopathy: Negative PURIFICATION DIRECTOR. 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 male Subjective: HPI: Enoc Armando presents for follow-up of Type 1 diabetes The initial diagnosis of diabetes was [id number] years ago in 1994. Disease course has [...] being taken. Patient does not see a general utility maintenance repairer. Eye exam is current. Currently taking: No [...] the morning. PLAN: See below Retinopathy: Negative PURIFICATION DIRECTOR. Exam within last 12 months: yes Date: 08/2018- patient due next month for updated exam Had bilat cataract extraction Dr. Lopez. Sees Dr. Browne in [place] every year routinely. Nephropathy: Negative Creat: 1.0, [...] to bedtime appear to be typically less [id number] and usually less than 180. He was [...] Call if BG consistently <70 or >250. [phone] Continue to check blood sugar 4 times [...] diabetes The initial diagnosis of diabetes was [id number] years ago in 1994. Disease course has [...] being taken. Patient does not see a general utility maintenance repairer. Eye exam is current. Currently taking: No oral hypoglycemic medications Humalog insulin: 10 units at breakfast; 10 units at lunch; 14-15 units at supper Lantus insulin: 18 units at bedtime Outpatient Medications Marked as Taking for the 11/16/19 encounter (Office Visit) with Paty Ortega, DRAPERY AND UPHOLSTERY MEASURER: amLODIPine (NORVASC) 10 MG tablet, Take 10 [...] at HS. PLAN: See below Retinopathy: Negative PURIFICATION DIRECTOR. Exam within last 12 months: yes Date: 08/2018- patient due next month for updated exam Had bilat cataract extraction Dr. Lopez. Sees Dr. Browne in [place] every year routinely. Nephropathy: Negative Creat: 1.08; [...] Call if BG consistently <70 or >250. [phone] Continue to check blood sugar 4 times [...] being taken. Patient does not see a general utility maintenance repairer. Eye exam is current. Currently taking: No [...] <150 atHS. PLAN: See below Retinopathy: Negative PURIFICATION DIRECTOR. Exam within last 12 months: yes Date: 09/2019- patient due September 2020for updated exam Had bilat cataract extraction Dr. Lopez. Sees Dr. Browne in [place] every yearroutinely. Nephropathy: Negative Creat: 1.01; eGFR: [...] Call if BG consistently <70 or >250. [phone] Continue to check blood sugar 4 times [...] being taken. Patient does not see a general utility maintenance repairer. Eye exam is current. Currently taking: No [...] <150 atHS. PLAN: See below Retinopathy: Negative PURIFICATION DIRECTOR. Exam within last 12 months: yes Date: 10/16/20. Had bilat cataract extraction Dr. Lopez. Sees Dr. Browne in [place] every year routinely. Nephropathy: Negative Creat: 1.01; [...] Call if BG consistently <70 or >250. [phone] Continue to check blood sugar 4 times [...] diabetes The initial diagnosis of diabetes was [id number] years ago in 1994. Disease course has [...] being taken. Patient does not see a general utility maintenance repairer. Eye exam is current. Currently taking: No [...] same dose of 18 unitsnightly. 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 Exam within last 12 months: yes Date: 08/2018 . Had bilat cataract extraction Dr. Lopez. Sees Dr. Browne in [place] every year routinely. Nephropathy: Negative Creat: 1.0, [...] Call if BG consistently <70 or >250. [phone] Continue to check blood sugar 4 times [...] Ultrasound doppler carotid Mary Vargas MD [address] [place] [address] Status Reason Specialty Diagnoses / Procedures Referre d By Contact Referred To Contact Closed Cardiology Diagnoses Bilateral carotid artery stenosis Procedures Ultrasound doppler carotid Mary Vargas MD [address] [place] [address] [facility] [address] [facility] [place] [address] Specialty Diagnoses / Procedures Referred By Contac t Referred To Contact Urology Diagnoses Elevated PSA Paty Ortega CNP [address] [place] [address] Alvaro Gutierrez MD [address] [place] [phone] Referral ID Status Reason Start Date Expiration Date Visits Requested Visits Authorized [id number] Pending Review Specialty Services Required/Pat ient's Best Interest 06/19/2022 06/19/2023 1 1 Specialty Diagnoses / Procedures Referred By Contac t Referred To Contact Cardiology Diagnoses Bilateral carotid artery stenosis Procedures Ultrasound doppler carotid Paty Ortega CNP [address] [place] [address] Referral ID Status Reason Start Date Expiration Date V isits Requested Visits Authorized [id number] Authorized 10/19/2022 10/19/2023 1 1 Specialty Diagnoses / Procedures Referred By Jimy t Referred To Contact Radiology Diagnoses Congestive heart failure, unspecified HF chronicity, unspecified heart failure type (HCC) 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 Procedures NM Myocardial Perfusion Multiple SPECT Day, Woo Larsen MD [address] [place] [address] Referral ID Status Reason Start Date Expiration Date V isits Requested Visits Authorized [id number] New Request 10/21/2023 10/20/2024 4 4 Chief [...] HTN (hypertension) April 03, 2025 4:16a m Chief Complaint Admit Date RESP FAILURE, COPD [...] PNA, ?HF EXAC April 09, 2025 3:01pm RESP FAILURE, COPD EXAC, ? PNA, ?HF EXAC April 10, 2025 3:27pm AE CHF, AE COPD, ACUTE HYPOXIC RESPIRATO RY FAILURE April 19, 2025 3:06am Reason for Visit Admit Date Acute hypoxic respiratory failure April 032024 4:16am MADONNA (acute kidney injury) April 03, 2025 4:16am Anemia April 03, 2025 4:16a m Bradycardia April 03, 2025 4:16a m CKD (chronic kidney disease), stage III April 03, 2025 4:16am HTN (hypertension) April 03, 2025 4:16a m LV dysfunction April 03, 2025 4:16a m Non-STEMI (non-ST elevated myocardial in farction) April 03, 2025 4:16am Acute hypoxic respiratory failure April 012024 3:06am Elevated d-dimer April 19, 2025 3:06 am Generalized weakness April 19, 2025 3:0 6am Hyperglycemia due to type 2 diabetes clayton litus April 19, 2025 3:06am Hyperkalemia April 19, 2025 3:06 am Leukocytosis April 19, 2025 3:06 am CHF exacerbation April 19, 2025 3:06 am CKD (chronic kidney disease), stage IV J une 2024 3:06am COPD exacerbation April 19, 2025 3:06 am Chief Complaint Admit Date RESP FAILURE, COPD [...] PNA, ?HF EXAC April 09, 2025 3:01pm RESP FAILURE, COPD EXAC, ? PNA, ?HF EXAC April 10, 2025 3:27pm AE CHF, AE COPD, ACUTE HYPOXIC RESPIRATO RY FAILURE April 19, 2025 3:06am AE CHF, AE COPD, ACUTE HYPOXIC RESPIRATO RY FAILURE April 20, 2025 11:28am AE CHF, AE COPD, ACUTE HYPOXIC RESPIRATO RY FAILURE April 20, 2025 12:31pm AE CHF, AE COPD, ACUTE HYPOXIC RESPIRATO RY FAILURE April 21, 2025 8:08am AE CHF, AE COPD, ACUTE HYPOXIC RESPIRATO RY FAILURE April 21, 2025 9:57am AE CHF, AE COPD, ACUTE HYPOXIC RESPIRATO RY FAILURE April 22, 2025 8:09am AE CHF, AE COPD, ACUTE HYPOXIC RESPIRATO RY FAILURE April 22, 2025 10:21am Reason for Visit Admit Date Acute hypoxic respiratory failure April 032024 4:16am MADONNA (acute kidney injury) April 03, 2025 4:16am Anemia April 03, 2025 4:16a m Bradycardia April 03, 2025 4:16a m CKD (chronic kidney disease), stage III April 03, 2025 4:16am HTN (hypertension) April 03, 2025 4:16a m LV dysfunction April 03, 2025 4:16a m Non-STEMI (non-ST elevated myocardial in farction) April 03, 2025 4:16am Acute hypoxic respiratory failure April 012024 3:06am MADONNA (acute kidney injury) April 19 3:06am ASCVD (arteriosclerotic cardiovascular d isease) April 19, 2025 3:06am Elevated d-dimer April 19, 2025 3:06 am Generalized weakness April 19, 2025 3:0 6am HFrEF (heart failure with reduced ejecti on fraction) April 19, 2025 3:06am Hyperglycemia due to type 2 diabetes clayton litus April 19, 2025 3:06am Hyperkalemia April 19, 2025 3:06 am Lactic acidosis April 19, 2025 3:06 am Leukocytosis April 19, 2025 3:06 am CHF exacerbation April 19, 2025 3:06 am CKD (chronic kidney disease) stage 3, GF R 30-59 ml/min April 19, 2025 3:06am CKD (chronic kidney disease), stage IV J une 2024 3:06am COPD exacerbation April 19, 2025 3:06 am Additional Source Comments (unrecognized sect ion and content) No Status Records FoundNo Status Records FoundNo Status Records FoundNo Status Records FoundNo Status Records FoundNo Status Records FoundNo Status Records FoundNo Status Records FoundNo Status Records FoundNo Status Records FoundNo Status Records FoundNo Status Records Found INFORMATION SOURCE (unrecogn ized section and content) DATE CREATED AUTHOR 04/21/2018 [facility] DATE CREATED AUTHOR AUTHOR'S ORGANIZ ATION 07/05/2019 [facility] DATE CREATED AUTHOR AUTHOR'S ORGANIZ ATION 08/04/2023 [employer] DATE CREATED AUTHOR AUTHOR'S ORGANIZ ATION 08/06/2023 [facility] DATE CREATED AUTHOR AUTHOR'S ORGANIZ ATION 10/13/2023 [facility] DATE CREATED AUTHOR AUTHOR'S ORGANIZ ATION 11/12/2024 [facility] DATE CREATED AUTHOR AUTHOR'S ORGANIZ ATION 03/13/2025 [facility] DATE CREATED AUTHOR AUTHOR'S ORGANIZ ATION 04/14/2025 [facility] DATE CREATED AUTHOR AUTHOR'S ORGANIZ ATION 04/28/2025 [facility] DATE CREATED AUTHOR AUTHOR'S ORGANIZ ATION 04/29/2025 [facility] DATE CREATED AUTHOR AUTHOR'S ORGANIZ ATION 05/03/2025 [facility] DATE CREATED AUTHOR AUTHOR'S ORGANIZ ATION 05/04/2025 [facility] Reason for Visit (unrecogniz ed section and content) Reason Comments Diabetes Mellitus Reason Onset Date Comments Medication Refill 02/18/2021 Reason Comments Diabetes Mellitus Status Reason Specialty Diagnoses / Procedures Referre d By Contact Referred To Contact Closed Cardiology Diagnoses Bilateral carotid artery stenosis Procedures Ultrasound doppler carotid Mary Vargas MD [address] [place] [address] [facility] [address] [facility] [place] [address] Reason Onset Date Comments Medication Refill 10/08/2021 [...] No coded services entered Praful Maloney MD [address] [place] [address] [address] [address] [address] Referral ID Status Reason Start Date Expiration Date Visits Re quested Visits Authorized [id number] 1 1 Reason Comments Initial Visit (Intake) SOBOE Specialty Diagnoses / Procedures Referred By Contac t Referred To Contact Cardiology Diagnoses Congestive heart failure, unspecified HF chronicity, unspecified heart failure type (HCC) Mary Vargas MD [address] [place] [address] [facility] Sigrid Barrera [address] [facility] [place] [address] Referral ID Status Reason Start Date Expiration Date Visits Re quested Visits Authorized [id number] Closed 10/19/2023 10/18/2024 1 1 Reason Comments Respiratory Distress Pt comes in for dif ficulty breathing. Pt states that he was dx with a viral lung infection 1 wk ago and placed on a steroid. Pt had covid 1 month ago and was admitted for 1 wk at this facility. 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 EMS reports an O2 level in the [...] carotid artery stenosis Sandi Phan PA-C [address] [place] [address] Phone: tel: fax: [place] [address] [place] [address] Phone: tel: Referral ID Status Reason Start Date Expiration Date V isits Requested Visits Authorized [id number] Pending Review 11/07/2024 11/07/2025 1 1 Reason [...] (Multi) Procedures Follow Up In Nephrology Ayanna Albert, [address] [place] [address] Phone: tel: fax: Referral ID Status Reason Start Date Expiration Date V isits Requested Visits Authorized [id number] Authorized 08/29/2024 08/29/2025 1 1 Reason Comments Shortness of Breath Abnormal Lab BNP Reason Comments Diabetes Mellitus Diabetic Eye Exam du e on 10/14/2021 Reason Onset Date Comments Results 03/27/2025 Lab Reason Onset Date Comments Medication Refill 04/16/2025 Reason Comments Follow-up [facility] Care Teams (unrecognized sec tion and content) Customer Service Agent Relationship Specialty Start Date End Date Nancy Mirza MD PCP - General Family Medicine 01/09/16 Customer Service Agent Relationship Specialty Start Date End Date Nancy Mirza MD PCP - General Family Medicine 01/09/16 Customer Service Agent Relationship Specialty Start Date End Date Nancy Mirza MD PCP - General Family Medicine 01/09/16 Customer Service Agent Relationship Specialty Start Date End Date Nancy Mirza MD PCP - General Family Medicine 01/09/16 Customer Service Agent Relationship Specialty Start Date End Date Nancy Mirza MD PCP - General Family Medicine 01/09/16 Customer Service Agent Relationship Specialty Start Date End Date Nancy Mirza MD PCP - General Family Medicine 01/09/16 Customer Service Agent Relationship Specialty Start Date End Date Nancy Mirza MD PCP - General Family Medicine 01/09/16 Customer Service Agent Relationship Specialty Start Date End Date Nancy Mirza MD [address] [place] [address] PCP - General Family Medicine 01/09/16 Customer Service Agent Relationship Specialty Start Date End Date Nancy Mirza MD [address] [place] [address] PCP - General Family Medicine 01/09/16 Customer Service Agent Relationship Specialty Start Date End Date Nancy Mirza MD [address] [place] [address] PCP - General 11/01/18 Customer Service Agent Relationship Specialty Start Date End Date Ryley Jeter MD [address] [place] [address] PCP - General Family Medicine 10/08/23 Customer Service Agent Relationship Specialty Start Date End Date Nancy Mirza MD [address] [place] [address] PCP - General 11/01/18 Customer Service Agent Relationship Specialty Start Date End Date Ryley Jeter MD [address] [place] [address] PCP - General Family Medicine 10/08/23 Customer Service Agent Relationship Specialty Start Date End Date Ryley Jeter MD [address] [place], [place] [address] PCP - General Family Medicine 10/08/23 Team Status: Active Member Role Status Lizzette Jeter MD Primary Care Provider Active Team Status: Inactive Member Role Status Lizzette Jeter MD Primary Care Provider Active Jana Ferguson MANAGER PLANT, MANAGER PLANT-C Attending Provider Active Team Status: Inactive Member Role Status Lizzette Jeter MD Primary Care Provide r, Attending Provider, Referring Provider Active Customer Service Agent Relationship Specialty Start Date End Date Ayanna Albert DO [address] [place] [address] PCP - [employer] Medicare Advantage PCP 11/01/23 Generic Provider, No Assigned MD Doris [address] [place] [address] PCP - General Internal Medicine 11/26/23 Customer Service Agent Relationship Specialty Start Date End Date Ayanna Albert DO [address] [place] [address] PCP - [employer] Medicare Advantage PCP 11/01/23 Gerri Amos MD [address] [place] [address] PCP - General Internal Medicine 11/26/23 Customer Service Agent Relationship Specialty Start Date End Date Ryley Jeter MD [address] [place], [place] [address] PCP - General Family Medicine 10/08/23 Customer Service Agent Relationship Specialty Start Date End Date Nancy Mirza MD [address] [place] [address] PCP - General 11/01/18 11/25/23 Customer Service Agent Relationship Specialty Start Date End Date Ryley Jeter MD [address] [place], [place] [address] PCP - General Family Medicine 10/08/23 Customer Service Agent Relationship Specialty Start Date End Date Ryley Jeter MD [address] [place], [place] [address] PCP - General Family Medicine 10/08/23 Customer Service Agent Relationship Specialty Start Date End Date Ryley Jeter MD [address] [place], [place] [id number] PCP - General Family Medicine 10/08/23 Customer Service Agent Relationship Specialty Start Date End Date Ryley Jeter MD [address] [place], [place] [address] PCP - General Family Medicine 10/08/23 Customer Service Agent Relationship Specialty Start Date End Date Ayanna Albert DO [address] [place] [address] PCP - [employer] Medicare Advantage PCP 11/01/23 Generic Provider, No Assigned MD Doris [address] [place] [address] PCP - General Internal Medicine 11/26/23 Customer Service Agent Relationship Specialty Start Date End Date Ryley Jeter MD [address] [place], [place] [id number] PCP - General Family Medicine 10/08/23 Customer Service Agent Relationship Specialty Start Date End Date Ayanna Albert DO [address] [place] [address] PCP - A[employer] Medicare Advantage PCP 11/01/23 Generic Provider, No Assigned PcpMD [address] [place] [id number] PCP - General Internal Medicine 11/26/23 Customer Service Agent Relationship Specialty Start Date End Date Ryley Jeter MD [address] [place] [address] PCP - General Family Medicine 10/08/23 Customer Service Agent Relationship Specialty Start Date End Date Ryley Jeter MD [address] [place] [address] PCP - General Family Medicine 10/08/23 Customer Service Agent Relationship Specialty Start Date End Date Ryley Jeter MD [address] [place] [address] PCP - General Family Medicine 10/08/23 Customer Service Agent Relationship Specialty Start Date End Date Ryley Jeter MD [address] [place] [address] PCP - General Family Medicine 10/08/23 Customer Service Agent Relationship Specialty Start Date End Date Ryley Jeter MD [address] [place] [address] PCP - General Family Medicine 10/08/23 Customer Service Agent Relationship Specialty Start Date End Date Ryley Jeter MD [address] [place] [address] PCP - General Family Medicine 10/08/23 Customer Service Agent Relationship Specialty Start Date End Date Ryley Jeter MD [address] [place] [address] PCP - General Family Medicine 10/08/23 Customer Service Agent Relationship Specialty Start Date End Date Ryley Jeter MD [address] [place] [address] PCP - General Family Medicine 10/08/23 Kristy Parker MD [address] [place] [address] Consulting Physician Vascular Surgery 11/09/24 Customer Service Agent Relationship Specialty Start Date End Date Ryley Jeter MD [address] [place], [place] [address] PCP - General Family Medicine 10/08/23 Kristy Parker MD [address] [place], [place] [id number] Consulting Physician Vascular Surgery 11/09/24 Customer Service Agent Relationship Specialty Start Date End Date Ryley Jeter MD [address] [place], [place] [phone] PCP - General Family Medicine 10/08/23 Kristy Parker MD [address] [place], [place] [phone] Consulting Physician Vascular Surgery 11/09/24 Customer Service Agent Relationship Specialty Start Date End Date Ryley Jeter MD [address] [place], [place] [phone] PCP - General Family Medicine 10/08/23 Kristy Parker MD [address] [place] [address] Consulting Physician Vascular Surgery 11/09/24 Customer Service Agent Relationship Specialty Start Date End Date Ryley Jeter MD [address] [place], [place] [address] PCP - General Family Medicine 10/08/23 Kristy Parker MD [address] [place] [address] Consulting Physician Vascular Surgery 11/09/24 Team Status: Inactive Member Role Status Dates Ryley Jeter MD Primary Care Provider Active St art: February 06, 2025 End: February 06, 2025 Dr. Kerwin Tamayo MD Attending Provider Activ e Start: February 06, 2025 End: February 06, 2025 Customer Service Agent Relationship Specialty Start Date End Date Ryley Jeter MD [address] [place], [place] [address] PCP - General Family Medicine 10/08/23 Kristy Parker MD [address] [facility] [place] [address] Consulting Physician Vascular Surgery 11/09/24 Customer Service Agent Relationship Specialty Start Date End Date Ryley Jeter MD [address] [place], [place] [address] PCP - General Family Medicine 10/08/23 Kristy Parker MD [address] [place] [place] [address] Consulting Physician Vascular Surgery 11/09/24 Customer Service Agent Relationship Specialty Start Date End Date Ryley Jeter MD [address] [place], [place] [address] PCP - General Family Medicine 10/08/23 Kristy Parker MD [address] [place] [address] Consulting Physician Vascular Surgery 11/09/24 Customer Service Agent Relationship Specialty Start Date End Date Generic Provider, No Assigned PcpMD PCP - General Internal Medicine 11/26/23 Customer Service Agent Relationship Specialty Start Date End Date Ryley Jeter MD [address] [place] [address] PCP - General Family Medicine 10/08/23 Kristy Parker MD [address] [place] [address] Consulting Physician Vascular Surgery 11/09/24 Customer Service Agent Relationship Specialty Start Date End Date Ryley Jeter MD [address] [place] [address] PCP - General Family Medicine 10/08/23 Kristy Parker MD [address] [place] [address] Consulting Physician Vascular Surgery 11/09/24 Team Status: [...] Team Status: Inactive Member Role Status Dates Ryely Jeter MD Primary Care Provider Active St [...] t: April 03, 2025 Dr. Dillon Moses , Other Provider Active St art: April 03, 2025 Dr. Favina Moreno MD Other Provider Active Start: April [...] art: April 04, 2025 Dr. John Brandon , Emergency Provider Active Start: April 04, 2025 [...] April 05, 2025 Dr. Landry Fagan , Attending Provider Active S tart: April 05, [...] t: April 05, 2025 Dr. Dillon Moses , Other Provider Active St art: April 05, 2025 Dr. Favian Moreno MD Other Provider Active Start: April 05, 2025 Dr. Chloe Gallardo MD Other Provider Active St art: April 05, 2025 Dr. Jose Rafael Dailey , Other Provider Active Start: April 05, 2025 [...] Active S tart: April 06, 2025 Dr. Nian Lee MD Other Provider Active Start: April [...] St art: April 06, 2025 Dr. Mick Jaen MD Other Provider Active Star t: April [...] Provider Active Start: April 07, 2025 Dr. Meo Ortiz MD Other Provider Active Star t: [...] Other Provider Active Start: April 09, 2025 Team Status: Active Member Role Status Dates Ryley Jeter MD Primary Care Provider Active St art: April 03, 2025 Dr. John Brandon DO Emergency Provider Active Start: April 03, 2025 Dr. Dyana Hwang MD Admit Provider Active St art: April 03, 2025 Dr. Dyana Hwang MD Referring Provider Active Start: April 03, 2025 Dr. [...] April 05, 2025 Dr. Dyana Hwang MD Referring Provider Active Start: April 05, 2025 Dr. [...] April 06, 2025 Dr. Dyana Hwang MD Referring Provider Active Start: April 06, 2025 Dr. [...] Primary Care Provider Active St art: April 10, 2025 Dr. John Brandon DO Emergency Provider Active Start: April 10, 2025 Dr. Dyana Hwang MD Admit Provider Active St art: April 10, 2025 Dr. Dyana Hwang MD Other Provider Active St art: April 10, 2025 Dr. Breezy Campbell MD Other Provider Active St art: April 10, 2025 Dr. Denisha Thompson MD Other Provider Active Start: April 10, 2025 Dr. Smooth Luis MD Other Provider Active St art: April 10, 2025 Dr. Grace Arnold MD Attending Provider Active Start: April 10, 2025 Dr. Grace Arnold MD Other Provider Active St art: April 10, 2025 Dr. Jose Moore MD Other Provider Active Start: April 10, 2025 Team Status: Active Member Role Status Dates Ryley Jeter MD Primary Care Provider Active St art: April 19, 2025 Dr. Arnulfo Jose DO Emergency Provider Active Start: April 19, 2025 Dr. Nancy Rizzo DO Admit Provider Active Start: April 19, 2025 Dr. Nancy Rizzo DO Attending Provider Active Start: April 19, 2025 Team Status: Active Member Role Status Dates Ryley Jeter MD Primary Care Provider Active St art: April 05, 2025 Dr. John Brandon DO Emergency Provider Active Start: April 05, 2025 Dr. Dyana Hwang MD Admit Provider Active St art: April 05, 2025 Dr. Dyana Hwang MD Other Provider Active St art: April 05, 2025 Dr. Grace Arnold MD Referring Provider Active Start: April 05, 2025 Dr. [...] St art: April 05, 2025 Team Status: Inactive Member Role Status Dates Ryley Jeter MD Primary Care Provider Active St art: April 19, 2025 End: April 22, 2025 Dr. Arnulfo Jose DO Emergency Provider Active Start: April 19, 2025 End: April 22, 2025 Dr. Nancy Rizzo DO Admit Provider Active Start: April 19, 2025 End: April 22, 2025 Dr. Nancy Rizzo DO Other Provider Active Start: April 19, 2025 End: April 22, 2025 Dr. Denisha Thompson MD Other Provider Active Start: April 19, 2025 End: April 22, 2025 Dr. Malika Fonseca DO Attending Provider Active Start: April 19, 2025 End: April 22, 2025 Dr. Jose Moore MD Other Provider Active Start: April 19, 2025 End: April 22, 2025 Dr. Breezy Campbell MD Other Provider Active St art: April 19, 2025 End: April 22, 2025 Team Status: Active Member Role Status Lizzette Jeter MD Primary Care Provider Active St art: April 20, 2025 Dr. Arnulfo Jose DO Emergency Provider Active Start: April 20, 2025 Dr. Nancy Rizzo DO Admit Provider Active Start: April 20, 2025 Dr. Nancy Rizzo DO Other Provider Active Start: April 20, 2025 Dr. Denisha Thompson MD Other Provider Active Start: April 20, 2025 Dr. Malika Fonseca DO Other Provider Active Star t: April 20, 2025 Dr. Jose Moore MD Other Provider Active Start: April 20, 2025 Dr. Breezy Campbell MD Other Provider Active St art: April 20, 2025 Dr. Ger Roberts DO Attending Provider Active Start: April 20, 2025 Team Status: Active Member Role Status Dates Ryley Jeter MD Primary Care Provider Active St art: April 20, 2025 Dr. Arnulfo Jose DO Emergency Provider Active Start: April 20, 2025 Dr. Nancy Rizzo DO Admit Provider Active Start: April 20, 2025 Dr. Nancy Rizzo DO Other Provider Active Start: April 20, 2025 Dr. Denisha Thompson MD Other Provider Active Start: April 20, 2025 Dr. Malika Fonseca DO Other Provider Active Star t: April 20, 2025 Dr. Jose Moore MD Other Provider Active Start: April 20, 2025 Dr. Breezy Campbell MD Attending Provider Active Start: April 20, 2025 Dr. Breezy Campbell MD Other Provider Active St art: April 20, 2025 Team Status: Active Member Role Status Dates Ryley Jeter MD Primary Care Provider Active St art: April 21, 2025 Dr. Arnulfo Jose DO Emergency Provider Active Start: April 21, 2025 Dr. Nancy Rizzo DO Admit Provider Active Start: April 21, 2025 Dr. Nancy Rizzo DO Other Provider Active Start: April 21, 2025 Dr. Denisha Thompson MD Other Provider Active Start: April 21, 2025 Dr. Malika Fonseca DO Attending Provider Active Start: April 21, 2025 Dr. Malika Fonseca DO Other Provider Active Star t: April 21, 2025 Dr. Jose Moore MD Other Provider Active Start: April 21, 2025 Dr. Breezy Campbell MD Other Provider Active St art: April 21, 2025 Team Status: Active Member Role Status Dates Ryley Jeter MD Primary Care Provider Active St art: April 21, 2025 Dr. Arnulfo Jose DO Emergency Provider Active Start: April 21, 2025 Dr. Nancy Rizzo DO Admit Provider Active Start: April 21, 2025 Dr. Nancy Rizzo DO Other Provider Active Start: April 21, 2025 Dr. Denisha Thompson MD Other Provider Active Start: April 21, 2025 Dr. Malika Fonseca DO Other Provider Active Star t: April 21, 2025 Dr. Jose Moore MD Other Provider Active Start: April 21, 2025 Dr. Breezy Campbell MD Attending Provider Active Start: April 21, 2025 Dr. Breezy Campbell MD Other Provider Active St art: April 21, 2025 Team Status: Active Member Role Status Dates Ryley Jeter MD Primary Care Provider Active St art: April 22, 2025 Dr. Arnulfo Jose DO Emergency Provider Active Start: April 22, 2025 Dr. Nancy Rizzo DO Admit Provider Active Start: April 22, 2025 Dr. Nancy Rizzo DO Other Provider Active Start: April 22, 2025 Dr. Denisha Thompson MD Other Provider Active Start: April 22, 2025 Dr. Malika Fonseca DO Attending Provider Active Start: April 22, 2025 Dr. Malika Fonseca DO Other Provider Active Star t: April 22, 2025 Dr. Jose Moore MD Other Provider Active Start: April 22, 2025 Dr. Breezy Campbell MD Other Provider Active St art: April 22, 2025 Team Status: Active Member Role Status Dates Ryley Jeter MD Primary Care Provider Active St art: April 22, 2025 Dr. Arnulfo Jose DO Emergency Provider Active Start: April 22, 2025 Dr. Nancy Rizzo DO Admit Provider Active Start: April 22, 2025 Dr. Nancy Rizzo DO Other Provider Active Start: April 22, 2025 Dr. Denisha Thompson MD Other Provider Active Start: April 22, 2025 Dr. Malika Fonseca DO Other Provider Active Star t: April 22, 2025 Dr. Jose Moore MD Other Provider Active Start: April 22, 2025 Dr. Breezy Campbell MD Attending Provider Active Start: April 22, 2025 Dr. Breezy Campbell MD Other Provider Active St art: April 22, 2025 Customer Service Agent Relationship Specialty Start Date End Date Generic Provider, No Assigned Pcp, PCP - General Internal Medicine 11/26/23 Scheduled Active and Recently Administ ered Medications (unrecognized section and content) Medication Order 10/11/2023 10/12/2023 10/13/2023 albuterol 2.5 mg /3 mL (0.083 %) nebulizer solution 2.5 mg (COMPLETED) 2.5 mg, nebulization, Once, On Wed10/11/23 at 0150, For 1 dose 0203 (Given - Provider: Scarlet Ashford, SUPERVISING PRODUCER - Comment: albuterol) amLODIPine (Norvasc) tablet 10 mg 10 mg, oral, Daily RT, First dose on Wed10/11/23 at 0700 1001 (Given - Provider: Geni aWll RN) 0621 (Given - Provider: Jody Ball [...] Empiric 2103 (Given - Provider: Amber Jacobsen, RN) budesonide (Pulmicort) 0.25 mg/2 mL nebulizer solution 0.25 mg 0.25 mg, nebulization, 2 times daily RT, First dose on Wed10/11/23 at 1900, Rinse mouth with water after use to reduce aftertaste and incidence of candidiasis. Do not swallow. 1900 (Given - Provider: Scarlet Ashford, SUPERVISING PRODUCER) 0700 (Not Given - Provider: Amber Pascal, OLIVIA - Reason: Medication not available)191 (Given - Provider: Malika Hemphill, OLIVIA) 0622 (Given - Provider: Delmar Mcgowan, OLVIIA)1900 (Due) budesonide (Pulmicort) 0.5 mg/2 mL nebulizer [...] Amber Jacobsen, FIDEL)0042 (Stopped - Provider: Amber Jacobsen, RN) cefTRIAXone (Rocephin) IVPB 1 g (COMPLETED) 1 g, intravenous, at 100 mL/hr, Administer over 30 Minutes, Once, On Wed10/11/23 at 0225, For 1 dose, premix bag, Suspected Indication (Select all that apply): Pneumonia, Type of Therapy: Empiric 0242 (New Bag - Provider: Heather Leonardo RN)0312 (Stopped - Provider: Heather Leonardo, FIDEL) cholecalciferol [...] Moody Gorman RN)1801 (Given - Provider: Moody Gorman, FIDEL) 0012 (Given - Provider: Amber Jacobsen RN)0900 [...] at 0700 0951 (Given - Provider: Geni Wall, FIDEL) 2104 (Given - Provider: Amber Jacobsen RN) [...] Jana See, FIDEL)1721 (Given - Provider: Jana See, FIDEL) 1011 (Given - Provider: Moody Gorman, FIDEL)1258 (Given - Provider: Moody Gorman, FIDEL)1846 (Given [...] 5 0952 (Given - Provider: Geni Wall, RN)1200 (Not Given - Provider: Geni Wall RN [...] - Provider: Scarlet Ashford, OLIVIA - Comment: allen) ipratropium-albuteroL (Duo-Neb) 0.5-2.5 mg/3 mL nebulizer solution 3 mL 3 mL, nebulization, 4 times daily, First dose on Wed10/11/23 at 0615 0600 (Given - Provider: Nancy Juares RRT)1153 (Given - Provider: Nancy Juares RRT)1821 (Given - Provider: Scarlet Ashford RRT)2145 (Given [...] or chew. 1858 (Given - Provider: Leticia Nagel, FIDEL) 0900 (Not Given - Provider: Moody Gorman [...] dose 0115 (New Bag - Provider: Heather Leonardo RN)0145 (Stopped - Provider: Heather Leonardo RN) sulfur [...] elemental zinc, oral, Daily, First dose on Tu10/12/23 at 1130 1300 (Not Given - Provider: [...] Initial bolus. 233 (Given - Provider: Kristi Bowman, RN) insulin regular (HumuLIN R) injection 10 Units (COMPLETED) 10 Units, intravenous, Once, On Wed11/26/23 at 2205, For 1 dose 221 (Given - Provider: Kristi Bowman, RN) oddzsmhlxlhz-wzkfkggkyi-xizduyzx (Zosyn) IV 3.375 g (COMPLETED) 3.375 g, [...] 2218 (New Bag - Provider: Kristi Bowman, RN)2248 (Stopped - Provider: Kristi Bowman RN) [...] 2224 (New Bag - Provider: Kristi Bowman, RN)2325 (Stopped - Provider: Macy Posadas RN) Continuous [...] Above: 90% 2124 (Start - Provider: Ozzie Ha RRT) 0124 [...] 0925 (Given - Provider: Sariah Clark, FIDEL) aspirin EC tablet 81 mg 81 mg, Oral, Daily, First dose on 11/27/23 at 0900, DO NOT CRUSH OR CHEW. 0750 (Given - Provider: Jose Rafael Gill, RN)0900 (Canceled Entry - Provider: Jose Rafael Gill, RN) 0844 (Given - Provider: Karoline Merida, [...] Flores, RN)0428 (Rate/Dose Verify - Provider: Nelia Flores RN)0505 (Stopped - Provider: Nelia Flores, RN) 0503 (New Bag - Provider: Blanco Olivera, FIDEL)0515 (Rate/Dose Verify - Provider: Blanco Olivera RN)0603 (Stopped - Provider: Blanco Olivera RN) cefTRIAXone (ROCEPHIN) IVPB 2 g (premix) 2,000 mg, Intravenous, at 100 mL/hr, Every 24 hours, First dose on 11/27/23 at 0430, Indication: CAP 0412 (New Bag - Provider: Sultana Baptiste RN)0442 (Stopped - Provider: Blanco Olivera, FIDEL) 0509 (New Bag - Provider: Nelia Flores, FIDEL)0539 (Stopped - Provider: Nelia Flores RN) 0416 (New Bag - Provider: Blanco Olivera RN)0442 (Rate/Dose Verify - Provider: Blanco Olivera, FIDEL)0446 (Stopped - Provider: Blanco Olivera, FIDEL) ezetimibe (ZETIA) tablet 10 mg 10 mg, Oral, Daily, First dose on 11/27/23 at 0900 0749 (Given - Provider: Jose Rafael Gill, RN)0900 (Canceled Entry - Provider: Jose Rafael Gill, RN) 0843 (Given - Provider: Karoline Merida, RN) 0925 (Given - Provider: Sariah Clark, RN) furosemide (LASIX) injection 20 mg 20 mg, Intravenous, Every 12 hours scheduled, First dose (after last modification) on Wed11/28/23 at 1800, Administer IV push at 20 mg per minute (doses higher than 100 mg require IVPB) 0611 (Given - Provider: Sultana Baptiste, FIDEL)1800 (Given - Provider: Jose Rafael Gill RN) 0549 (Given - Provider: Nelia Flores, FIDEL)1707 (Given - Provider: Janice Spear, FIDEL) 0500 (Given - Provider: Blanco Olivera RN)1800 (Not Given - Provider: Sariah Clark RN [...] hours scheduled, First dose on 11/27/23 at 0600, Saline lock 0611 (Given - Provider: Sultana Baptiste, RN)1409 (Given - Provider: Jose Rafael Gill, FIDEL)2152 (Given - Provider: Nelia Flores, RN) 0551 (Given - Provider: Nelia Flores, RN)1400 (Canceled Entry - Provider: Karoline Merida, FIDEL)2017 (Given - Provider: Janice Spear, RN)2200 (Canceled Entry - Provider: Janice Spear, RN) 0600 (Canceled Entry - Provider: Blanco Olivera, FIDEL)1311 (Given - Provider: Sariah Clark, [...] 0617 (Bolus from Bag - Provider: Sultana Baptiste, FIDEL) ipratropium-albuteroL (DUO-NEB) 0.5-2.5 mg/3 ml nebulizer solution [...] 11/27/23 at 0337, Anginal pain, may repeat [id number] x3, then notify physician. DO NOT CRUSH [...] Janice Spear, FIDEL) 0415 (Given - Provider: Blanco Olivera RN) [...] physician 2009 (Given - Provider: Carlita Roth, RN) insulin glargine (LANTUS) injection 5 Units [...] notifying physician 2008 (Given - Provider: Carlita Roth, RN - Comment: medication not on the [...] NOT hold basal insulin without notifying physician 1099 (Given - Provid er: Karthik Sandoval RN [...] Comment: 8 units instructed verbal order from [facility]) isosorbide mononitrate (IMDUR) 24 hr tablet 30 [...] orthostasis due to potential risk of syncope. 1919 (Given - Provider: Milana Dawson, RN) 09 (Given - Provider: Karthik Sandoval, FIDEL) Continuous Medication Order 10/26/2024 10/27/2024 10/28/2024 insulin [...] Chan RN)0900 (Rate/Dose Change - Provider: Karthik Sandoval, FIDEL)0930 (Stopped - Provider: Karthik Sandoval, RN) sodium chloride 0.9% (NS) (CANCELED) 20 mL/hr, Intravenous, Continuous, Starting on Wed10/27/24 at 0700, Pre-Procedure 0632 (New Bag - Provider: Tessa Madera RN)1515 (Stopped - Provider: Alicia Bailey RN) sodium chloride 0.9% (NS) (CANCELED) 250 mL/hr, Intravenous, Continuous, Starting on Wed10/27/24 at 1130, For 4 hours 1130 (New Bag - Provider: Mary Willis, FIDEL)1527 (Stopped - Provider: Mary Willis RN) sodium chloride 0.9% (NS) (CANCELED) 100 mL/hr, [...] will conside)0725 (Rate/Dose Verify - Provider: Julia A Ruckel, RN)0801 (Rate/Dose Verify - Provider: Julia Chan [...] 0854 (New Bag - Provider: Warren Guardado, FIDEL)0909 (Restarted - Provider: Warren Guardado RN)0924 (New Bag - Provider: Warren Guardado RN)1515 (Stopped - Provider: Alicia Bailey RN) [...] BE BASED ON THE PRIMARY CLINICAL RECORDS. [facility] [employer] [facility]. provides no warranty or guarantee of the accuracy or completeness of information in this document.
--- NOTE | 2025-05-05 20:21 | ED.RN ---
This RN notified Dr Amor about the concern of giving the ordered IV bolus fluids due to CHF, Crackles, pitting edema and difficulty breathing. This RN requested that we could at least wait till BMP results come back. Dr Amor stating that Pt that we need to give fluids due to reimbursement reasons. Dr Porras stating that if Pt is in fluid overload pt can be diuresed.
[2025-05-05 20:28] LABS: AST(SGOT) 43 U/L (<=37); Alanine Aminotransfer ALT/SGPT 44 U/L (<=46); Albumin, Serum 3.9 g/dL (3.4-4.8); Alkaline Phosphatase 93 U/L (40-129); Anion Gap 16 (5-15); BUN 71 mg/dL (4-19); BUN/Creat Ratio 26.2 RATIO (10-20); Calcium,Total 8.5 mg/dL (7.6-11.0); Carbon Dioxide 25.2 mmol/L (21.0-32.0); Chloride 101 mmol/L (98-108); Estimated Creatinine Clearance 19.22 ml/min (50-250); Globulin 2.5 g/dL (2.2-4.2); Glucose 242 mg/dL (70-99); Potassium 4.5 mmol/L (3.3-5.1); Pro- Brain NATRIURETIC PEPTIDE 23319 pg/mL (<=1800)
[2025-05-05 20:30] LABS: Partial Thromboplast Time 29.3 Seconds (24.1-36.2); Prothrombin Time (Protime)PT. 13.1 SECONDS (11.7-14.9)
[2025-05-05] MEDS: 0.9% Normal Saline (1000mL) 1,000 ML 999 ML IV (20:35)
[2025-05-05 20:45] LABS: Troponin T High Sensitivity 115 ng/L (<=22)
[2025-05-05 20:57] LABS: Mucous, Urine 0 SEEN /hpf (<or=2+); Red Blood Cells-Urine 0 SEEN /hpf (0-5); Squamous Epithelial Cells - UA 0 SEEN /hpf (0-5)
[2025-05-05] MEDS: Ceftriaxone 2 GM in 0.9% Normal Saline (50mL MB+) 50 ML IV (21:01)
[2025-05-05 21:02] LABS: Color, Urine Yellow (Yellow); Glucose, Dipstick Normal (Normal); Ketone-Dipstick Negative (Negative); Leukocyte Esterase-Dipstick 25 /ul (Negative); Nitrite-Dipstick Negative (Negative); Occult Blood-Urine Negative /ul (Negative); Protein-Dipstick 30 mg/dl (Negative); Specific Gravity, Urine 1.015 (1.002-1.030); Urine Bilirubin Dipstick Negative (Negative)
[2025-05-05 21:09] LABS: Hematocrit 30.3 % (40-54); Hemoglobin 9.1 g/dL (13.0-16.5); Immature Granulocytes Count 0.070 X10^3/uL (0.0-0.0); Mean Corp Hgb Conc 30.0 g/dL (32-36); Mean Corpuscular Volume 96.2 fL (80-94); Mean Platelet Vol. 10.8 fl (6.2-12.0); NRBC Flagged by Analyzer 0 % (0-5); Platelet Count 252 K/mm3 (150-450); RBC Distribution Width CV 14.2 % (11.6-14.6); RBC Distribution Width SD 49.4 fl (35.1-43.9); Red Blood Count 3.15 M/mm3 (4.6-6.2); White Blood Count 16.8 K/mm3 (4.4-11.0)
[2025-05-05] MEDS: Azithromycin 500 MG in 0.9% Normal Saline (250mL Bag) 250 ML 250 MG IV (21:16)
--- NOTE | 2025-05-05 21:39 | ED.RN ---
Fluids stopped at 500ML and additional [address] Amor orders.
--- NOTE | 2025-05-05 21:39 | PCM.HP.STD ---
[facility] - General General Date of Admission: 05/05/25 Date of Service: 05/05/25 Chief Complaint: SOB. [facility] Narrative SERENA FERNANDES, is a 79 M with a past medical history of essential hypertension; on metoprolol, hydralazine and spironolactone, hyperlipidemia; on ezetimibe, DM-2; of unknown control on insulin glargine 15U sq daily plus SSI, CAD; s/p NSTEMI, chronic combined systolic and diastolic CHF; LVEF ~40% plus stage I diastolic dysfunction with RSVP of 41 mmHg on echocardiogram done 04/03/2025, history of tobacco abuse; subsequent COPD, history of COVID-19 (2022), CKD; stage IV, chronic macrocytic anemia; with recent blood transfusion ~10 days ago, BPH; history of obstructive uropathy on tamsulosin, GERD; on pantoprazole, OA; with lumbar spondylolisthesis plus sciatica and recent admission here from April 03, 2025 to April 10, 2025 for treatment of acute hypoxic respiratory failure due to AE COPD with superimposed pneumonia complicated by MADONNA in the setting of CKD; stage IIIb-IV with patient initiated on hemodialysis via tunneled catheter placed during that admission along with sfsog-oi-utlgopq anemia with hemoglobin dropping to 6.9 g/dL requiring blood transfusion and most recent admission here from April 19, 2025 to April 22, 2025 for treatment of AE of combined systolic and diastolic CHF; with LVEF 40% plus stage I diastolic dysfunction complicated by AE COPD; with acute hypoxic respiratory failure requiring Airvo in addition to hyperkalemia of 5.9 mmol/L suspected to be due to adverse drug reaction to spironolactone with a leukocytosis of 14K present on admission without obvious signs of infection with DNR-CCA; without intubation CODE STATUS who re-presents to [facility] ER complaining of shortness of breath. Mr. Fernandes reports his symptoms began approximately a few hours prior to admission with the abrupt-onset of dyspnea on exertion the progressive shortness of breath at rest which caused him to activate EMS. In the ER he was noted to have an elevated NT pro-BNP II of 23,319 pg/mL present on admission consistent with AE of chronic combined systolic and diastolic CHF; LVEF ~40% plus stage I diastolic dysfunction with a corresponding elevated initial troponin of 115 ng/L suspected to be due to acute cardiac strain complicated by clinical evidence of AE COPD with Iivjj-yo-Pkepxtz Hypoxic Respiratory Failure; requiring BiPAP with Leukocytosis of 16.8 K in addition to Lactic Acidosis of 2.8 mmol/L both present on admission with a CXR that revealed findings compatible with CHF/volume overload with increased pulmonary opacities within the lung which may represent edema or Pneumonia causing ER physician to treat him with empiric IV ceftriaxone and IV azithromycin plus methylprednisolone and bumetanide. He was then admitted to the PCU for ongoing care for stay that is expected to extend beyond 2 midnights. [facility] Medical History (Updated 05/06/25 @ 01:[address] Tj Rizzo, DO) HFrEF (heart failure with reduced ejection fraction) ASCVD (arteriosclerotic cardiovascular disease) CKD (chronic kidney disease) stage 3, GFR 30-59 ml/min CKD (chronic kidney disease), stage IV Non-STEMI (non-ST elevated myocardial infarction) Bradycardia MADONNA (acute kidney injury) Anemia LV dysfunction Chronic anemia Tobacco use COPD (chronic obstructive pulmonary disease) HLD (hyperlipidemia) HTN (hypertension) BPH (benign prostatic hyperplasia) Chronic low back pain with sciatica Diabetes mellitus, type 2 CKD (chronic kidney disease), stage III Pneumonia COVID Wears glasses Wears dentures Home Medications ?Medication ?Instructions ?Recorded ?Last Taken ?Type insulin glargine 100 unit/mL (3 15 unit subcut QPM diabetes 08/05/21 05/04/25 History mL) subcutaneous pen (Lantus Solostar U-100 Insulin) insulin lispro 100 unit/mL 0 unit subcut TID SLIDING SCALE 08/05/21 05/05/25 History subcutaneous pen tamsulosin 0.4 mg capsule (Flomax) 0.4 mg PO DAILY urination 08/05/21 05/04/25 History ezetimibe 10 mg tablet 10 mg PO DAILY cholesterol 04/06/24 05/05/25 History blood sugar diagnostic (Contour 09/12/24 Unknown History Next Test Strips) hydralazine 50 mg tablet 50 mg PO Q8H BP 04/03/25 05/05/25 History albuterol sulfate 2.5 mg/3 mL 2.5 mg (3 mL) inhalation Q2H PRN 04/22/25 05/05/25 Rx (0.083 %) solution for nebulization PRN SOB &/OR WHEEZING 30 days #180 mL albuterol sulfate 90 mcg/actuation 2 inh inhalation Q6H PRN shortness 04/22/25 05/05/25 Rx breath activated powder inhaler of breath or wheezing #1 ea (ProAir RespiClick) carvedilol 25 mg tablet 25 mg PO BIDCM #60 tabs 04/22/25 05/05/25 Rx furosemide 40 mg tablet 40 mg PO BIDLX water pill #60 tabs 04/22/25 05/05/25 Rx isosorbide mononitrate 30 mg 30 mg PO DAILY BP #30 tabs 04/22/25 05/05/25 Rx tablet,extended release 24 hr nebulizer and compressor #1 ea 04/22/25 Unknown Rx finasteride 5 mg tablet 5 mg PO DAILY prostate 05/05/25 05/05/25 History Allergy/AdvReac Type Severity Reaction Status Date / Time spironolactone AdvReac Intermediate Hyperkalemi Verified 04/19/25 03:10 a Corticosteroids AdvReac Other Verified 04/03/25 00:16 (Glucocorticoids) (steroids) Tmdlfyk-GOO-ItP Reductase AdvReac Other Verified 04/03/25 00:16 Inhibitor (Coxvjxd-Pgm-Nfu Reductase Inhibitor) Family History Mother COPD (chronic obstructive pulmonary disease) Father CAD (coronary artery disease) Heart disease Surgical History Hx of cystoscopy Hx of colonoscopy Hx of left cataract extraction Hx of right cataract extraction Social History household members: spouse Smoking Status: Current every day smoker tobacco type: cigarettes alcohol intake: never substance use type: does not use ROS ROS Narrative Review of systems was not possible due to patient's respiratory distress on BiPAP. Vital Signs Vital Signs Vital Signs: 05/05/25 19:39 05/05/25 19:44 05/05/25 19:46 Temperature 96.5 F L Temperature Source Temporal Pulse Rate 98 Respiratory Rate 24 H Respiratory Effort Labored Accessory Muscle Use Respiratory Pattern Tachypnea Blood Pressure 157/83 H Blood Pressure Mean 107 Pulse Ox 75 78 Oxygen Delivery Method CPAP CPAP Fraction of Inspired Oxygen (FIO2) 05/05/25 19:48 05/05/25 19:49 05/05/25 19:55 Temperature Temperature Source Pulse Rate 113 H 111 H 111 H Respiratory Rate 28 H 28 H 30 H Respiratory Effort Respiratory Pattern Tachypnea Tachypnea Blood Pressure 185/86 H Blood Pressure Mean 119 Pulse Ox 74 97 Oxygen Delivery Method Bi-pap Fraction of Inspired Oxygen (FIO2) 80 05/05/25 20:14 05/05/25 20:30 05/05/25 20:43 Temperature 96.5 F L Temperature Source Oral Pulse Rate 108 H 98 98 Respiratory Rate 29 H 27 H 27 H Respiratory Effort Respiratory Pattern Blood Pressure 164/84 H 164/84 H Blood Pressure Mean 110 110 Pulse Ox 95 96 96 Oxygen Delivery Method Bi-pap Bi-pap Fraction of Inspired Oxygen (FIO2) 50 05/05/25 21:00 05/05/25 21:29 05/05/25 21:30 Temperature 96.5 F L 96.5 F L Temperature Source Temporal Pulse Rate 91 84 Respiratory Rate 21 H 18 Respiratory Effort Respiratory Pattern Blood Pressure 157/96 H 132/82 H 132/82 H Blood Pressure Mean 116 98 98 Pulse Ox 95 95 Oxygen Delivery Method Bi-pap Fraction of Inspired Oxygen (FIO2) Weight Weight: 145 lb 15.136 oz Body Mass Index (BMI) 23.6 Physical Exam Const alert and oriented x3 Constitutional Narrative: Patient noted to be comfortable on BiPAP. General Appearance: cooperative HEENT normocephalic, head/scalp atraumatic and hearing grossly normal bilaterally Eyes PERRL and EOMs intact bilaterally Neck no lymphadenopathy and supple Resp Resp Narrative: Diminished breath sounds throughout inspiratory and wheezing. Cardio regular rate and regular rhythm GI normal to inspection, nondistended, normoactive bowel sounds, soft to palpation, non-tender and non-distended Extremity normal to inspection and full ROM Skin Skin Narrative: Patient has evidence of rash, abscess, wounds or jaundice. Neuro oriented x3, CN's II-XII intact bilaterally, moves all extremities and no focal motor deficits Sensorium / Orientation: awake, alert, oriented to person, oriented to place and oriented to time Speech: speech normal Psych Mood & Affect: anxious Results Medical Records Data Attestation: I reviewed the patient's medical records Lab / Micro Data Attestation: I reviewed the patient's lab results. 05/05/25 19:49 05/05/25 19:49 Labs: Laboratory Results - last 24 hr 05/05/25 19:49: WBC 16.8 H, RBC 3.15 L, Hgb 9.1 L, Hct 30.3 L, MCV 96.2 H, MCH 28.9, MCHC 30.0 L, RDW Std Deviation 49.4 H, RDW Coeff of [place] 14.2, Plt Count 252, MPV 10.8, Immature Gran % (Auto) 0.400, Neut % (Auto) 81.8 H, Lymph % (Auto) 9.3 L, [place] % (Auto) 7.2, Eos % (Auto) 0.8, Baso % (Auto) 0.5, Absolute Neuts (auto) 13.7 H, Absolute Lymphs (auto) 1.57, Nucleated RBC % 0, PT 13.1, INR 1.0, APTT 29.3, Sodium 142, Potassium 4.5, Chloride 101, Carbon Dioxide 25.2, Anion Gap 16 H, BUN 71 H, Creatinine 2.72 H, Estim Creat Clear Calc 19.22 L, Est GFR (MDRD) Non-Af 23 L, BUN/Creatinine Ratio 26.2 H, Glucose 242 H, Lactic Acid 2.8 H*, Calcium 8.5, Total Bilirubin 0.49, AST 43 H, ALT 44, Alkaline Phosphatase 93, Troponin T High Sens 115 H* D, [place] [address] H, Total Protein 6.4, Albumin 3.9, Globulin 2.5, Albumin/Globulin Ratio 1.5 05/05/25 20:50: Urine Color Yellow, Urine Clarity Clear, Urine pH 6.0, Ur Specific [place] 1.015, Urine Protein 30 H, Urine Glucose (UA) Normal, Urine Ketones Negative, Urine Occult Blood Negative, Urine Nitrite Negative, Urine Bilirubin Negative, Urine Urobilinogen Normal, Ur Leukocyte Esterase 25 H, Urine RBC 0 SEEN, Urine WBC 0-5 SEEN, Ur Squamous Epith Cells 0 SEEN, Urine Bacteria RARE, Urine Mucus 0 SEEN Imaging Radiology Impression Chest X-Ray 05/05/25 20:00 IMPRESSION: 1. Findings compatible with CHF/volume overload. 2. Increased pulmonary opacities within the left lung, which may reflect edema or pneumonia. Reading Location: [id number] Assessment & Plan Assessment/Plan (1) CHF exacerbation: QUALIFIERS: Heart failure type: combined systolic and diastolic Qualified Code(s): I50.43 - Acute on chronic combined systolic (congestive) and diastolic (congestive) heart failure (2) Elevated troponin: (3) COPD exacerbation: (4) Acute on chronic hypoxic respiratory failure: (5) Pneumonia: QUALIFIERS: Laterality: unspecified laterality Lung location: unspecified part of lung Pneumonia type: due to unspecified organism Qualified Code(s): J18.9 - Pneumonia, unspecified organism (6) CKD (chronic kidney disease), stage IV: (7) Diabetes mellitus, type 2: QUALIFIERS: Diabetes mellitus complication status: without complication 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 AE of chronic combined systolic and diastolic CHF; LVEF ~40% plus stage I diastolic dysfunction - Admit to PCU. Continue IV bumetanide begun in ER plus give supplemental potassium and magnesium. Recheck NT pro-BNP II and CXR daily to follow trend. 2. Elevated initial troponin of 115 ng/L suspected to be due to acute cardiac strain due to #1 - Serialize troponin. Give BASA daily and maintain statin. 3. AE COPD with Mpatt-lk-Ovjifgr Hypoxic Respiratory Failure; requiring BiPAP complicating #1 & #2 - Wean IV methylprednisolone and BiPAP as tolerated. Continue scheduled and as needed nebulizers. Viral respiratory panel pending. 4. CXR suspicious for superimposed Pneumonia with Leukocytosis of 16.8 K in addition to Lactic Acidosis of 2.8 mmol/L both present on admission compounding #1 - #3 - Maintain broad-spectrum antibiotics started in the ER and await culture and sensitivity data. Check urinary antigens to Streptococcus pneumonia and Legionella. 5. Very recent admission here from April 19, 2025 to April 22, 2025 for treatment of AE of combined systolic and diastolic CHF; with LVEF 40% plus stage I diastolic dysfunction complicated by AE COPD; with acute hypoxic respiratory failure requiring Airvo in addition to hyperkalemia of 5.9 mmol/L suspected to be due to adverse drug reaction to spironolactone with a leukocytosis of 14K present on admission without obvious signs of infection adding to the medical complexity of #1 - #4 - Noted with very similar pattern of admission on this occasion as well. 6. Recent admission here from April 03, 2025 to April 10, 2025 for treatment of acute hypoxic respiratory failure due to AE COPD with superimposed pneumonia complicated by MADONNA in the setting of CKD; stage IIIb-IV with patient initiated on hemodialysis via tunneled catheter placed during that admission along with uckew-ry-rwqttqe anemia with hemoglobin dropping to 6.9 g/dL requiring blood transfusion with persistent and progressively worsening Generalized Weakness - Noted with similar pattern of admission on this occasion. 7. DM-2; of unknown control with hyperglycemia of 242 mg/dL present on admission - Keep NPO for now while on BiPAP. FSBS q. 6 hours plus SSI. 8. Essential hypertension; on carvedilol, hydralazine and furosemide - Continue metoprolol and hydralazine as before but hold spironolactone in light of #3. 9. Hyperlipidemia; on ezetimibe - Resume ezetimibe as previous. 10. CAD; s/p NSTEMI - Noted. Serialize troponin. 11. History of COVID-19 (2022) - Noted. We will check viral respiratory panel. 12. Chronic macrocytic anemia; with recent blood transfusion ~30 days ago - Apparently stable with hemoglobin of 9.1 g/dL present on admission. 13. BPH; history of obstructive uropathy on tamsulosin - Resume tamsulosin as before. 14. GERD; on pantoprazole - Maintain PPI IV while on BiPAP in light of high-dose steroids for #1. 15. OA; with lumbar spondylolisthesis plus sciatica - Give acetaminophen prn for gsat-vq-gxhmttpm (level 1-5/10) pain or fever. 16. DVT prophylaxis - Heparin 5,000U sq TIS plus SCD's. Total time: Approximately (but not less than) 75 minutes. Charges/Coding Visit Charges Inpatient E&M: 73235 Init Hosp L3
--- OUTSIDE RECORDS SUMMARY | 2025-05-05 22:04 | XMS RPT_ITS | CCD ---
Author Organization [facility] Care Team Providers Care Line And Frame Poler Name Role Phone Nancy Mirza Unavailable Unavailable Nancy Mirza Unavailable Unavailable Nancy Mirza Unavailable Unavailable Unavailable Primary Care Provider Nancy Calles Primary Care Provider Nancy Mirza Primary Care Provider Nancy Mirza Primary Care Provider Naresh Mirza MD, Nancy Key Primary Care Provider Nancy Mirza MD Primary Care Provider [phone] Nancy Mirza MD Primary Care Provider Nancy [...] Key Attending Unavaila ble Yuki, Dr. Nancy Kye Primary Care Unavaila ble Yuki, Dr. Nancy [...] Provider Dr. Ayanna Albert Attending Unavail able ORTEGA, [facility] PATY MARCOSSONIA Referring Trenava ilable NANCY MIRZA Primary Care Unavailable Ayanna Albert DO Unavailable Generic Provider , No Assigned Pcp Primary Car e Provider Unavailable Gerri Amos MD Primary Care Provider Unavailabl ariela Jeter MD, Ryley Key Primary Care Provider Nancy Mirza MD Primary Care Provider Generic Provider , No Assigned Pcp Primary Car e Provider Unavailable Generic Provider , No Assigned Pcp Primary Car e Provider Unavailable Kristy Parker MD Unavailable [phone] GENERIC PROVIDER, NO ASSIGNED PCP Primary Care Unavailable GENERIC PROVIDER, NO ASSIGNED PCP Primary Care Unavailable GENERIC PROVIDER, NO ASSIGNED PCP Primary Care Unavailable Kristy Parker MD Unavailable Ryley Jeter MD Primary Care Provider Belkis URIBE, Dr. Suresh Attending Provider Generic Provider , No Assigned Pcp Primary Car e Provider Unavailable [facility] Consulting Unavai BERNADETTE Felix Attending Unavailable RYLEY JETER Primary Care Unavailable JESS GARCIA Admitting Unavailable CINTIA BENITEZ Admitting Unavailable [facility] Consulting Un [...] Jesus URIBE, Dr. Wood Other Provider [phone] Keenan URIBE, Dr. Song Other Provider [phone] Mervin URIBE, Dr. Gutiérrez Other Provider Deep URIBE, Dr. Arredondo Other Provider [phone] Saritha URIBE, Dr. Ya Other Provider Radha URIBE, Dr. Guerra Other Provider Unavailabl ariela Woods MD, Dr. Mar Other Provider [phone] Demetri URIBE, Dr. Altamirano Other Provider Cordelia [...] Veronica URIBE, Dr. Valentin Attending Provider Janelle RUIBE, Dr. Smooth Ahn Attending Provider Teresa URIBE, Dr. Jose Perez Attending Provider WOO SMALL Referring [facility] Steffany URIBE, [facility] Primary Care Provider Belkis URIBE, Dr. Suresh Attending Provider Dr. [...] Rylan VERDUZCO, Dr. Alatorre Attending Provider Rylan DO, Dr. Alatorre Other Provider Chuy URIBE, Dr. Nancy Delgado Other Provider [phone] Susan URIBE, Dr. Stewart Other Provider Elive URIBE, Dr. Butcher Other Provider [phone] Jesus URIBE, Dr. Wood Other Provider [phone] Keenan URIBE, Dr. Song Other Provider Mervin URIBE, Dr. Gutiérrez Other Provider [phone] Deep URIBE, Dr. Arredondo Other Provider Saritha URIBE, Dr. Ya Other Provider Radha URIBE, Dr. Guerra Other Provider Unavailabl ariela Woods MD, Dr. Mar Other Provider [phone] Demetri URIBE, Dr. Altamirano Other Provider Cordelia URIBE, Dr. Walsh Other Provider [phone] Lucinda URIBE, Dr. Barton Other Provider Josué VERDUZCO, Dr. Carranza Other Provider [phone] Tiffanie URIBE, Dr. Ballesteros Other Provider [phone] Sami URIBE, Dr. Corona Other Provider [phone] Asim VERDUZCO, Dr. Mantilla Other Provider Andrei [...] Marian VERDUZCO, Dr. Hui Attending Provider Marian VERDUZCO, Dr. Hui Other Provider [facility], Dr. Ann Attending Provider STEFFANY, CHALON TUCKER [...] Katie Consulting Unavailable Jose Moore Consulting Unavailable Nancy Rizzo Consulting Unavailable [...] Attending Unavailable Malika Fonseca Attending Unavailable Dyana wHang Referring Unavailable Dyana Hwang Admitting Unavailable Tennille [...] Woods Consulting Unavailable Adarsh Mosquera Consulting Unavailable iNco Storey Consulting Unavailable Mick Jane Consulting Unavailable [...] Unavailable Barbie Martin Attending Unavailabl e Steffany, [facility] Primary Care Unavailable Koroma, Young Admitting [...] Attending Unavailable Nancy Rizzo Attending Unavailable Steffany, [facility] Primary Care Unavailable Kerwin Tamayo Attending Unavailabl e Allergies Allergy Classification Reported Allergen(s) Allergy Type Date of Onset Reaction(s) Facility Corticosteroids (1 source) predniSONE Drug Allergy 08-24-20 Other (See Comments) [facility] HMG-CoA Reductase Inhibitors (statins) (3 sources) Hmg-Coa Reductase Inhibitors (Statins) Drug Allergy 01-08-20 16 [facility] (20 sources) Hmg-Coa Reductase Inhibitors (Statins); Translations: [KFTZHSD-EWD-IPL REDUCTASE INHIBITORS] Propensity to adverse reactions to drug 01-08-20 16 Other [facility] Work Phone: (6 sources) HMG-CoA reductase inhibitor Propensity to adverse reactions to drug 01-08-20 16 [facility] (20 sources) HMG-CoA reductase inhibitor Propensity to adverse reactions to drug 01-08-20 16 Unknown [facility] (18 sources) predniSONE; Translations: [predniSONE TABS] Drug Allergy 08-24-20 Other, Other (See Comments) [facility] (4 sources) predniSONE; Translations: [PREDNISONE] Drug Allergy 08-24-20 [facility] Repository (5 sources) Glucocorticoid Receptor Agonists Propensity to adverse reactions 04-06-20 24 Other [facility] Comment on above: Blood sugar increase (2 sources) Spironolactone Drug Allergy 04-19-20 [facility] (1 source) Corticosteroids Drug allergy (disorder) 04-03-20 [facility] (1 source) Spironolactone Drug Allergy 04-19-20 [facility] (1 source) Erikwwv-Hle-Teh Reductase Inhibitor Drug allergy (disorder) 04-03-20 [facility] Medications Current Medications Medication Drug [...] (Vitamin D-3) tablet 5,000 Units compress.stocking[facility]knee,reg[facility] ([facility] source) Start: 05-01-2025 compress.stocking[facility]knee,reg[facility] Indications: Stage 3b chronic kidney disease (Multi) [...] 11/27/23 at 0337 Anginal pain, may repeat [id number] x3, then notify physician. DO NOT CRUSH [...] (porcine) injection 4,000 Units Start: 11-26-2023 take [id number] [IU] intravenously every four hours as needed [...] PLACED TUBE OR TUBE less than 14 [place]. 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; Translations: [long-term (current) use of insulin] Onset: 05-02-2025 Episodic [...] #### 9 2498 #### [facility] [place] [address] [place]: Jadon Velez MD Chloride [Moles/Vol] 99 mmol/L Normal 98-110 [facility] Comment on above: Performed By: #### 9 2498 #### [facility] [place] [address] [place]: Jadon Velez MD CO2 [Moles/Vol] 30 mmol/L Normal 20-32 [facility] Comment on above: Performed By: #### 9 2498 #### [facility] [place] [address] [place]: Jadon Velez MD Creatinine [Mass/Vol] 2.37 mg/dL High 0.70-1.[address] [facility] Comment on above: Performed By: #### 9 2498 #### [facility] [place] [address] [place]: Jadon Velez MD ELECTROLYTE BALANCE 10 mmol/L (calc) Normal 7-17 [facility] Comment on above: Performed By: #### 9 2498 #### [facility] [place] [address] [place]: Jadon Velez MD GFR/1.73 sq M.predicted among non-blacks MDRD (S/P/Bld) [Vol rate/Area] 27 mL/min/{1.73_m2} Low > OR = 60 [facility] Comment on above: Performed By: #### 9 2498 #### [facility] [place] [address] [place]: Jadon Velez MD Glucose [Mass/Vol] 40 mg/dL Low 65-99 [facility] Comment on above: Result Comment: Veri fied by repeat analysis. Fasting reference interval Performed By: #### 9 2498 #### [facility] [address], [address] [place] [address] [place]: Jadon Velez MD Potassium [Moles/Vol] 4.0 mmol/L Normal 3.5-5.3 [facility] Comment on above: Performed By: #### 9 2498 #### [facility] [address], [address] [place] [address] [place]: Jadon Velez MD Sodium [Moles/Vol] 139 mmol/L Normal 135-146 [facility] Comment on above: Performed By: #### 9 2498 #### [facility] [address], [address] [place] [address] [place]: Jadon Velez MD Urea nitrogen [Mass/Vol] 82 mg/dL High 7- [facility] Comment on above: Performed By: #### 9 2498 #### [facility] [place] [address] [place]: Jadon Velez MD Urea nitrogen/Creatinine [Mass ratio] 35 mg/mg High - [facility] Comment on above: Performed By: #### 9 2498 #### [facility] [place] [address] [place]: Jadon Velez MD Basic Metabolic Profile (BMP )on 04-23-2025 BUN Normal - [facility] Comment on above: Result Comment: Canc elled via OM: Order cancelled - Patient discharged Performed By: #### L 500.2500, L100.0100 ####[facility] [address] [place], [address] BUN/CRE Normal - [facility] Comment on above: Result Comment: Canc elled via OM: Order cancelled - Patient discharged Performed By: #### L 500.2500, L100.0100 ####[facility] [address] [place], [address] Calcium Normal 7.6-11.0 [facility] Comment on above: Result Comment: Canc elled via OM: Order cancelled - Patient discharged Performed By: #### L 500.2500, L100.0100 ####[facility] [address] [place], [address] CL Normal 98-108 [facility] Comment on above: Result Comment: Canc elled via OM: Order cancelled - Patient discharged Performed By: #### L 500.2500, L100.0100 ####[facility] [address] [place], [address] CO2 Normal 21.0-32.0 [facility] Comment on above: Result Comment: Canc elled via OM: Order cancelled - Patient discharged Performed By: #### L 500.2500, L100.0100 ####[facility] [address] [place], [address] CREAT,SERUM Normal 0.70-1.20 [facility] Comment on above: Result Comment: Canc elled via OM: Order cancelled - Patient discharged Performed By: #### L 500.2500, L100.0100 ####[facility] [address] [place], [address] eGFR Normal >60 [facility] Comment on above: Result Comment: Canc elled via OM: Order cancelled - Patient discharged Performed By: #### L 500.2500, L100.0100 ####[facility] [address] [place], [address] GAP Normal 5-15 [facility] Comment on above: Result Comment: Canc elled via OM: Order cancelled - Patient discharged Performed By: #### L 500.2500, L100.0100 ####[facility] [address] [place], [address] GLU Normal 70-99 [facility] Comment on above: Result Comment: Canc elled via OM: Order cancelled - Patient discharged Performed By: #### L 500.2500, L100.0100 ####[facility] [address] [place], [address] Potassium Normal 3.3-5.1 [facility] Comment on above: Result Comment: Canc elled via OM: Order cancelled - Patient discharged Performed By: #### L 500.2500, L100.0100 ####[facility] [address] [place], [address] Basic Metabolic Profile (BMP) Normal 133-145 [facility] Comment on above: Result Comment: Canc elled via OM: Order cancelled - Patient discharged Performed By: #### L 500.2500, L100.0100 ####[facility] [address] [place], [address] CBC W/Diff, Automatedon 06-2 Absolute Neut Normal 2.0-7.7 [facility] Comment on above: Result Comment: Canc elled via OM: Order cancelled - Patient discharged Performed By: #### L 500.2500, L100.0100 ####[facility] [address] [place], [address] HCT Normal 40-54 [facility] Comment on above: Result Comment: Canc elled via OM: Order cancelled - Patient discharged Performed By: #### L 500.2500, L100.0100 ####[facility] [address] [place], [address] HGB Normal 13.0-16.5 [facility] Comment on above: Result Comment: Canc elled via OM: Order cancelled - Patient discharged Performed By: #### L 500.2500, L100.0100 ####[facility] [address] [place], [address] MCH Normal 27.0-32.0 [facility] Comment on above: Result Comment: Canc elled via OM: Order cancelled - Patient discharged Performed By: #### L 500.2500, L100.0100 ####[facility] [address] [place], [address] MCHC Normal 32-36 [facility] Comment on above: Result Comment: Canc elled via OM: Order cancelled - Patient discharged Performed By: #### L 500.2500, L100.0100 ####[facility] [address] [place], [address] MCV Normal 80-94 [facility] Comment on above: Result Comment: Canc elled via OM: Order cancelled - Patient discharged Performed By: #### L 500.2500, L100.0100 ####[facility] [address] [place], [address] NEUT% Normal 47-70 [facility] Comment on above: Result Comment: Canc elled via OM: Order cancelled - Patient discharged Performed By: #### L 500.2500, L100.0100 ####[facility] [address] [place], [address] PLT Normal 150-450 [facility] Comment on above: Result Comment: Canc elled via OM: Order cancelled - Patient discharged Performed By: #### L 500.2500, L100.0100 ####[facility] [address] [place], [address] RBC Normal 4.6-6.2 [facility] Comment on above: Result Comment: Canc elled via OM: Order cancelled - Patient discharged Performed By: #### L 500.2500, L100.0100 ####[facility] [address] [place], [address] RDW CV Normal 11.6-14.6 [facility] Comment on above: Result Comment: Canc elled via OM: Order cancelled - Patient discharged Performed By: #### L 500.2500, L100.0100 ####[facility] [facility] [address] [place], [address] RDW SD Normal 35.1-43.9 [facility] Comment on above: Result Comment: Canc elled via OM: Order cancelled - Patient discharged Performed By: #### L 500.2500, L100.0100 ####[facility] [address] [place], [address] WBC Normal 4.4-11.0 [facility] Comment on above: Result Comment: Canc elled via OM: Order cancelled - Patient discharged Performed By: #### L 500.2500, L100.0100 ####[facility] [address] [place], [address] Anion gap in Serum or Plasma Ordered By: Bipin Gonzalez on 04-22-2025 Anion gap [Moles/Vol] 14 mmol/L 5-15 [facility] BUN/creatinine ratioOrdered By: Bipin Gonzalez on 04-22-2025 Urea nitrogen/Creatinine [Mass ratio] 30.0 mg/mg High - [facility] Basic Metabolic Profile (BMP )on 04-22-2025 BUN/CRE 30.0 RATIO High - [facility] Comment on above: Performed By: #### L 500.2500, L501.5200 ####[facility] [address] [place], [address] Calcium [Mass/Vol] 8.6 mg/dL Normal 7.6-11.0 [facility] Comment on above: Performed By: #### L 500.2500, L501.5200 ####[facility] [address] [place], [address] Chloride [Moles/Vol] 100 mmol/L Normal 98-108 [facility] Comment on above: Performed By: #### L 500.2500, L501.5200 ####[facility] [address] [place], [address] CO2 [Moles/Vol] 23.0 mmol/L Normal 21.0-32.0 [facility] Comment on above: Performed By: #### L 500.2500, L501.5200 ####[facility] [address] [place], [address] Creatinine [Mass/Vol] 2.97 mg/dL High 0.70-1.20 [facility] Comment on above: Performed By: #### L 500.2500, L501.5200 ####[facility] [address] [place], [address] ECRCL 17.60 ml/min Low 50-250 [facility] Comment on above: Performed By: #### L 500.2500, L501.5200 ####[facility] [address] [place], [address] GAP 14 Normal 5-15 [facility] Comment on above: Performed By: #### L 500.2500, L501.5200 ####[facility] [address] [place], [address] GFR/1.73 sq M.predicted among non-blacks MDRD (S/P/Bld) [Vol rate/Area] 20 mL/min/{1.73_m2} Low >60 [facility] Comment on above: Result Comment: mL/m in/1.73m2 CKD-EPI Creatinine Equation (2020) Performed By: #### L 500.2500, L501.5200 ####[facility] [address] [place], [address] Glucose [Mass/Vol] 240 mg/dL High 70-99 [facility] Comment on above: Performed By: #### L 500.2500, L501.5200 ####[facility] [address] [place], [address] Potassium [Moles/Vol] 4.2 mmol/L Normal 3.3-5.1 [facility] Comment on above: Performed By: #### L 500.2500, L501.5200 ####[facility] [address] [place], [address] Sodium [Moles/Vol] 137 mmol/L Normal 133-145 [facility] Comment on above: Performed By: #### L 500.2500, L501.5200 ####[facility] [address] [place], [address] Urea nitrogen [Mass/Vol] 89 mg/dL High 4-19 [facility] Comment on above: Performed By: #### L 500.2500, L501.5200 ####[facility] [address] [place], [address] Bedside Glucoseon 04-22-2025 FINGERSTICK GLU 246 mg/dL High 74-106 [facility] Comment on above: Result Comment: ADITI GEMENT OF PATIENT CARE PER NURSING PROTOCOL Performed By: #### L 501.080 ####[facility] [address] [place], [address] FINGERSTICK GLU 202 mg/dL High 74-106 [facility] Comment on above: Result Comment: ADITI GEMENT OF PATIENT CARE PER NURSING PROTOCOL Performed By: #### L 501.080 ####[facility] [address] [place], [address] Carbon dioxide, total [Moles /volume] in Central venous bloodOrdered By: Bipin Gonzalez on 04-22-2025 CO2 [Moles/Vol] 23.0 mmol/L 21.0-32.0 [facility] Chloride assayOrdered By: Song Gonzalez on 04-22-2025 Chloride [Moles/Vol] 100 mmol/L 98-108 [facility] Glomerular filtration rate ( GFR) estimation/1.73 sq m using serum, plasma, or whole bOrdered By: Bipin Gonzalez on 04-22-2025 GFR/1.73 sq M.predicted among non-blacks MDRD (S/P/Bld) [Vol rate/Area] 20 mL/min/{1.73_m2} Low >60 [facility] deOrdered By: Malika Fonseca on 04-22-2025 Glucose [Mass/Vol] 202 mg/dL High 74-106 [facility] Magnesiumon 04-22-2025 Magnesium [Mass/Vol] 2.7 mg/dL High 1.5-2.2 [facility] Comment on above: Performed By: #### L 500.2500, L501.5200 ####[facility] [address] [place], [place], [address] Magnesium measurement (mass/ volume)Ordered By: Bipin Gonzalez on 04-22-2025 Magnesium (Unsp spec) [Mass/Vol] 2.7 mg/dL High 1.5-2.2 [facility] Potassium measurement (mass/ volume)Ordered By: Bipin Gonzalez on 04-22-2025 Potassium (Unsp spec) [Mass/Vol] 4.2 mmol/L 3.3-5.1 [facility] Serum creatinine measurement (mass/volume)Ordered By: Bipin Gonzalez on 04-22-2025 Creatinine [Mass/Vol] 2.97 mg/dL High 0.70-1.20 [facility] Serum glucose measurement (m ass/volume)Ordered By: Bipin Gonzalez on 04-22-2025 Glucose [Mass/Vol] 240 mg/dL High 70-99 [facility] Serum or plasma calcium nikkie urement (mass/volume)Ordered By: Bipin Gonzalez on 04-22-2025 Calcium [Mass/Vol] 8.6 mg/dL 7.6-11.0 [facility] Serum or plasma urea nitroge n measurement (mass/volume)Ordered By: Bipin Gonzalez on 04-22-2025 Urea nitrogen [Mass/Vol] 89 mg/dL High 4-19 [facility] Sodium levelOrdered By: Viet Gonzalez on 04-22-2025 Sodium [Moles/Vol] 137 mmol/L 133-145 [facility] Basic Metabolic Profile (BMP )on 04-21-2025 BUN/CRE 27.1 RATIO High 10-20 [facility] Comment on above: Performed By: #### L 500.2500 ####[facility] [address] [place], [address] Calcium [Mass/Vol] 8.9 mg/dL Normal 7.6-11.0 [facility] Comment on above: Performed By: #### L 500.2500 ####[facility] [address] [place], [address] Chloride [Moles/Vol] 102 mmol/L Normal 98-108 [facility] Comment on above: Performed By: #### L 500.2500 ####[facility] [address] [place], [address] CO2 [Moles/Vol] 22.4 mmol/L Normal 21.0-32.0 [facility] Comment on above: Performed By: #### L 500.2500 ####[facility] [address] [place], [address] Creatinine [Mass/Vol] 2.94 mg/dL High 0.70-1.20 [facility] Comment on above: Performed By: #### L 500.2500 ####[facility] [address] [place], [address] ECRCL 17.78 ml/min Low 50-250 [facility] Comment on above: Performed By: #### L 500.2500 ####[facility] [address] [place], [address] GAP 14 Normal 5-15 [facility] Comment on above: Performed By: #### L 500.2500 ####[facility] [address] [place], [address] GFR/1.73 sq M.predicted among non-blacks MDRD (S/P/Bld) [Vol rate/Area] 21 mL/min/{1.73_m2} Low >60 [facility] Comment on above: Result Comment: mL/m in/1.73m2 CKD-EPI Creatinine Equation (2020) Performed By: #### L 500.2500 ####[facility] [address] [place], [address] Glucose [Mass/Vol] 136 mg/dL High 70-99 [facility] Comment on above: Performed By: #### L 500.2500 ####[facility] [address] [place], [address] Potassium [Moles/Vol] 4.5 mmol/L Normal 3.3-5.1 [facility] Comment on above: Performed By: #### L 500.2500 ####[facility] [address] [place], [address] Sodium [Moles/Vol] 138 mmol/L Normal 133-145 [facility] Comment on above: Performed By: #### L 500.2500 ####[facility] [address] [place], [address] Urea nitrogen [Mass/Vol] 80 mg/dL High 4-19 [facility] Comment on above: Performed By: #### L 500.2500 ####[facility] [address] [place], [address] Bedside Glucoseon 04-21-2025 FINGERSTICK GLU 341 mg/dL High 74-106 [facility] Comment on above: Result Comment: ADITI GEMENT OF PATIENT CARE PER NURSING PROTOCOL Performed By: #### L 501.080 ####[facility] [address] [place], [address] FINGERSTICK GLU 279 mg/dL High 74-106 [facility] Comment on above: Result Comment: ADITI GEMENT OF PATIENT CARE PER NURSING PROTOCOL Performed By: #### L 501.080 ####[facility] [address] [place], [address] FINGERSTICK GLU 201 mg/dL High 74-106 [facility] Comment on above: Result Comment: ADITI GEMENT OF PATIENT CARE PER NURSING PROTOCOL Performed By: #### L 501.080 ####[facility] [address] [place], [address] FINGERSTICK GLU 150 mg/dL High 74-106 [facility] Comment on above: Result Comment: ADITI GEMENT OF PATIENT CARE PER NURSING PROTOCOL Performed By: #### L 501.080 ####[facility] [address] [place], [address] Stool Occult Blood iFOBon STOB Positive Normal [facility] Comment on above: Performed By: #### M 100.7900 ####[facility] [address] [place], [address] Stool gastrointestinal hemog lobin detection by immunologic methodOrdered By: Nancy Henson on 04-21-2025 Lower GI hemoglobin IA Ql (Stl) Positive Abnormal [facility] Absolute lymphocyte countOrd ered By: Nancy Henson on 04-20-2025 Lymphocytes Auto (Unsp spec) [#/Vol] 0.52 10*3/uL Low 0.83-4.51 [facility] Automated lymphocyte count a s percentage of total leukocytesOrdered By: Nancy Henson on 04-20-2025 Lymphocytes/100 WBC Auto (Unsp spec) 3.5 % Low 19-41 [facility] Basophil percentageOrdered B y: Nancy Henson on 04-20-2025 Basophils/100 WBC (Bld) 0.1 % 0-1 [facility] Bedside Glucoseon 04-20-2025 FINGERSTICK GLU 241 mg/dL High 74-106 [facility] Comment on above: Result Comment: ADITI GEMENT OF PATIENT CARE PER NURSING PROTOCOL Performed By: #### L 501.080 ####[facility] [address] [place], [address] FINGERSTICK GLU 337 mg/dL High 74-106 [facility] Comment on above: Result Comment: ADITI GEMENT OF PATIENT CARE PER NURSING PROTOCOL Performed By: #### L 501.080 ####[facility] [address] [place], [address] FINGERSTICK GLU 391 mg/dL High 74-106 [facility] Comment on above: Result Comment: ADITI GEMENT OF PATIENT CARE PER NURSING PROTOCOL Performed By: #### L 501.080 ####[facility] [address] [place], [address] FINGERSTICK GLU 362 mg/dL High 74-106 [facility] Comment on above: Result Comment: ADITI GEMENT OF PATIENT CARE PER NURSING PROTOCOL Performed By: #### L 501.080 ####[facility] [address] [place], [address] Bilirubin, totalOrdered By: Nancy Henson on 04-20-2025 Bilirubin [Mass/Vol] 0.35 mg/dL 0.00-1.30 [facility] CBC W/Diff, Automatedon 04-02 Absolute Lymph 0.52 X10 3/uL Low 0.83-4.51 [facility] Comment on above: Performed By: #### L 500.4050, L100.0100 ####[facility] [address] [place], [address] Absolute Neut 14.0 X10 3/uL High 2.0-7.7 [facility] Comment on above: Performed By: #### L 500.4050, L100.0100 ####[facility] [address] [place], [address] Basophils/100 WBC (Bld) 0.1 % Normal 0-1 [facility] Comment on above: Performed By: #### L 500.4050, L100.0100 ####[facility] [address] [place], [address] Eosinophils/100 WBC (Bld) 0.0 % Normal 0-5 [facility] Comment on above: Performed By: #### L 500.4050, L100.0100 ####[facility] [address] [place], [address] Erythrocyte distribution width (RBC) [Ratio] 13.6 % Normal 11.6-14.6 [facility] Comment on above: Performed By: #### L 500.4050, L100.0100 ####[facility] [address] [place], [address] Hematocrit (Bld) [Volume fraction] 24.6 % Low 40-54 [facility] Comment on above: Performed By: #### L 500.4050, L100.0100 ####[facility] [address] [place], [address] Hemoglobin (Bld) [Mass/Vol] 7.9 g/dL Low 13.0-16.5 [facility] Comment on above: Performed By: #### L 500.4050, L100.0100 ####[facility] [address] [place], [address] IG% 0.800 Normal 0.0-0.9 [facility] Comment on above: Result Comment: IG% - Immature Granulocytes (promyelocytes, myelocytes andmetamyelocytes) > 1% indicates that a LEFT SHIFT is Present. Performed By: #### L 500.4050, L100.0100 ####[facility] [address] [place], [address] Lymphocytes/100 WBC (Bld) 3.5 % Low 19-41 [facility] Comment on above: Performed By: #### L 500.4050, L100.0100 ####[facility] [address] [place], [address] MCH (RBC) [Entitic mass] 29.9 pg Normal 27.0-32.0 [facility] Comment on above: Performed By: #### L 500.4050, L100.0100 ####[facility] [address] [place], [address] MCHC (RBC) [Mass/Vol] 32.1 g/dL Normal 32-36 [facility] Comment on above: Performed By: #### L 500.4050, L100.0100 ####[facility] [address] [place], [address] MCV (RBC) [Entitic vol] 93.2 fL Normal 80-94 [facility] Comment on above: Performed By: #### L 500.4050, L100.0100 ####[facility] [address] [place], [address] Monocytes/100 WBC (Bld) 1.7 % Normal 0-10 [facility] Comment on above: Performed By: #### L 500.4050, L100.0100 ####[facility] [address] [place], [address] Neutrophils/100 WBC (Bld) 93.9 % High 47-70 [facility] Comment on above: Performed By: #### L 500.4050, L100.0100 ####[facility] [address] [place], [address] Nucleated RBC (Bld) [#/Vol] 0 10*3/uL Normal 0-5 [facility] Comment on above: Performed By: #### L 500.4050, L100.0100 ####[facility] [address] [place], [address] Platelet mean volume (Bld) [Entitic vol] 11.6 fL Normal 6.2-12.0 [facility] Comment on above: Performed By: #### L 500.4050, L100.0100 ####[facility] [address] [place], [address] Platelets (Bld) [#/Vol] 216 10*3/uL Normal 150-450 [facility] Comment on above: Performed By: #### L 500.4050, L100.0100 ####[facility] [address] [place], [address] RBC (Bld) [#/Vol] 2.64 10*6/uL Low 4.6-6.2 [facility] Comment on above: Performed By: #### L 500.4050, L100.0100 ####[facility] [address] [place], [address] RDW SD 46.0 fl High 35.1-43.9 [facility] Comment on above: Performed By: #### L 500.4050, L100.0100 ####[facility] [address] [place], [address] WBC (Bld) [#/Vol] 14.9 10*3/uL High 4.4-11.0 [facility] Comment on above: Performed By: #### L 500.4050, L100.0100 ####[facility] [address] [place], [address] Comprehensive Metabolic Prof [facility] 04-20-2025 Albumin [Mass/Vol] 3.7 g/dL Normal 3.4-4.8 [facility] Comment on above: Performed By: #### L 500.4050, L100.0100 ####[facility] [address] [place], [address] Albumin/Globulin [Mass ratio] 1.5 {ratio} Normal 0.9-2.4 [facility] Comment on above: Performed By: #### L 500.4050, L100.0100 ####[facility] [address] [place], [address] ALK PHOS 78 U/L Normal 40-129 [facility] Comment on above: Performed By: #### L 500.4050, L100.0100 ####[facility] [address] [place], [address] ALT [Catalytic activity/Vol] 27 U/L Normal <=46 [facility] Comment on above: Performed By: #### L 500.4050, L100.0100 ####[facility] [address] [place], [address] AST [Catalytic activity/Vol] 21 U/L Normal <=37 [facility] Comment on above: Performed By: #### L 500.4050, L100.0100 ####[facility] [address] [place], [address] Bilirubin [Mass/Vol] 0.35 mg/dL Normal 0.00-1.30 [facility] Comment on above: Performed By: #### L 500.4050, L100.0100 ####[facility] [address] [place], [address] BUN/CRE 24.4 RATIO High 10-20 [facility] Comment on above: Performed By: #### L 500.4050, L100.0100 ####[facility] [address] [place], [address] Calcium [Mass/Vol] 9.1 mg/dL Normal 7.6-11.0 [facility] Comment on above: Performed By: #### L 500.4050, L100.0100 ####[facility] [address] [place], [address] Chloride [Moles/Vol] 99 mmol/L Normal 98-108 [facility] Comment on above: Performed By: #### L 500.4050, L100.0100 ####[facility] [address] [place], [address] CO2 [Moles/Vol] 22.7 mmol/L Normal 21.0-32.0 [facility] Comment on above: Performed By: #### L 500.4050, L100.0100 ####[facility] [address] [place], [address] Creatinine [Mass/Vol] 2.95 mg/dL High 0.70-1.20 [facility] Comment on above: Performed By: #### L 500.4050, L100.0100 ####[facility] [address] [place], [address] ECRCL 17.72 ml/min Low 50-250 [facility] Comment on above: Performed By: #### L 500.4050, L100.0100 ####[facility] [address] [place], [address] GAP 15 Normal 5-15 [facility] Comment on above: Performed By: #### L 500.4050, L100.0100 ####[facility] [address] [place], [address] GFR/1.73 sq M.predicted among non-blacks MDRD (S/P/Bld) [Vol rate/Area] 21 mL/min/{1.73_m2} Low >60 [facility] Comment on above: Result Comment: mL/m in/1.73m2 CKD-EPI Creatinine Equation (2020) Performed By: #### L 500.4050, L100.0100 ####[facility] [address] [place], [address] Globulin (S) [Mass/Vol] 2.5 g/dL Normal 2.2-4.2 [facility] Comment on above: Performed By: #### L 500.4050, L100.0100 ####[facility] [address] [place], [address] Glucose [Mass/Vol] 375 mg/dL High 70-99 [facility] Comment on above: Performed By: #### L 500.4050, L100.0100 ####[facility] [address] [place], [address] Potassium [Moles/Vol] 4.7 mmol/L Normal 3.3-5.1 [facility] Comment on above: Performed By: #### L 500.4050, L100.0100 ####[facility] [address] [place], [address] Sodium [Moles/Vol] 136 mmol/L Normal 133-145 [facility] Comment on above: Performed By: #### L 500.4050, L100.0100 ####[facility] [address] [place], [address] T PROT 6.2 g/dL Normal 5.9-8.4 [facility] Comment on above: Performed By: #### L 500.4050, L100.0100 ####[facility] [address] [place], [address] Urea nitrogen [Mass/Vol] 72 mg/dL High 4-19 [facility] Comment on above: Performed By: #### L 500.4050, L100.0100 ####[facility] [address] [place], [address] Consultation - Cardiologyon 04-20-2025 Consultation - Cardiology Normal [facility] Electrocardiogram reportOrde red By: Barbie Martin on 04-20-2025 EKG study [facility] Work Phone: [phone] Eosinophil percentageOrdered By: Nancy Henson on 04-20-2025 Eosinophils/100 WBC (Bld) 0.0 % 0-5 [facility] Erythrocyte distribution wid th ratioOrdered By: Nancy Henson on 04-20-2025 Erythrocyte distribution width (RBC) [Ratio] 13.6 % 11.6-14.6 [facility] Erythrocyte distribution wid th standard deviationOrdered By: Nancy Henson on 04-20-2025 Erythrocyte distribution width (RBC) [Ratio] 46.0 fl High 35.1-43.9 [facility] Hematocrit Auto (Bld) [Volum e fraction]Ordered By: Nancy Henson on 04-20-2025 Hematocrit (Bld) [Volume fraction] 24.6 % Low 40-54 [facility] Hemoglobin measurementOrdere d By: Nancy Henson on 04-20-2025 Hemoglobin (Bld) [Mass/Vol] 7.9 g/dL Low 13.0-16.5 [facility] Immature granulocytes/100 WB C Auto (Bld)Ordered By: Nancy Henson on 04-20-2025 Immature granulocytes/100 WBC (Bld) 0.800 % 0.0-0.9 [facility] MCV (mean corpuscular volume ) determinationOrdered By: Nancy Henson on 04-20-2025 MCV (RBC) [Entitic vol] 93.2 fL 80-94 [facility] Mean corpuscular hemoglobin (MCH) determinationOrdered By: Nancy Henson on 04-20-2025 MCH (RBC) [Entitic mass] 29.9 pg 27.0-32.0 [facility] Monocyte percentageOrdered B y: Nancy Henson on 04-20-2025 Monocytes/100 WBC (Bld) 1.7 % 0-10 [facility] Neutrophil percentageOrdered By: Nancy Henson on 04-20-2025 Neutrophils/100 WBC (Bld) 93.9 % High 47-70 [facility] No Panel InformationOrdered By: Nancy Henson on 04-20-2025 21 U/L <38 [facility] Platelet countOrdered By: Juwan Henson on 04-20-2025 Platelets (Bld) [#/Vol] 216 10*3/uL 150-450 [facility] RBC Auto (Bld) [#/Vol]Ordere d By: Nancy Henson on 04-20-2025 RBC (Bld) [#/Vol] 2.64 10*6/uL Low 4.6-6.2 [facility] Serum globulin measurementOr dered By: Nancy Henson on 04-20-2025 Globulin (S) [Mass/Vol] 2.5 g/dL 2.2-4.2 [facility] Serum or plasma alanine clayton otransferase (ALT) measurementOrdered By: Nancy Henson on 04-20-2025 ALT [Catalytic activity/Vol] 27 U/L <47 [facility] Serum or plasma albumin nikkie urement (mass/volume)Ordered By: Nancy Henson on 04-20-2025 Albumin [Mass/Vol] 3.7 g/dL 3.4-4.8 [facility] Serum or plasma albumin/glob ulin mass ratioOrdered By: Nancy Henson on 04-20-2025 Albumin/Globulin [Mass ratio] 1.5 {ratio} 0.9-2.4 [facility] Serum or plasma alkaline dwight sphatase measurementOrdered By: Nancy Henson on 04-20-2025 ALP [Catalytic activity/Vol] 78 U/L 40-129 [facility] Total proteinOrdered By: Saravanan Henson on 04-20-2025 Protein [Mass/Vol] 6.2 g/dL 5.9-8.4 [facility] White blood cell (WBC) count Ordered By: Nancy Henson on 04-20-2025 WBC (Bld) [#/Vol] 14.9 10*3/uL High 4.4-11.0 [facility] 12 Lead EKGon 04-19-2025 12 Lead EKG Normal [facility] 12 Lead EKG Normal [facility] Absolute lymphocyte countOrd ered By: Arnulfo Jose on 04-19-2025 Lymphocytes Auto (Unsp spec) [#/Vol] 1.40 10*3/uL 0.83-4.51 [facility] Anion gap in Serum or Plasma Ordered By: Arnulfo Jose on 04-19-2025 Anion gap [Moles/Vol] 15 mmol/L 5-15 [facility] Assessment of wrist artery p atency prior to arterial punctureOrdered By: Nancy Henson on 04-19-2025 Arterial patency Wrist artery --pre arterial puncture N/A [facility] Arterial patency Wrist artery --pre arterial puncture Positive [facility] Automated lymphocyte count a s percentage of total leukocytesOrdered By: Arnulfo Jose on 04-19-2025 Lymphocytes/100 WBC Auto (Unsp spec) 10.0 % Low 19-41 [facility] BUN/creatinine ratioOrdered By: Arnulfo Jose on 04-19-2025 Urea nitrogen/Creatinine [Mass ratio] 23.8 mg/mg High 10-20 [facility] Basic Metabolic Profile (BMP )on 04-19-2025 BUN/CRE 24.8 RATIO High 10-20 [facility] Comment on above: Performed By: #### L 500.2500 ####[facility] [address] [place], [address] Calcium [Mass/Vol] 9.1 mg/dL Normal 7.6-11.0 [facility] Comment on above: Performed By: #### L 500.2500 ####[facility] [address] [place], [address] Chloride [Moles/Vol] 101 mmol/L Normal 98-108 [facility] Comment on above: Performed By: #### L 500.2500 ####[facility] [address] [place], [address] CO2 [Moles/Vol] 21.1 mmol/L Normal 21.0-32.0 [facility] Comment on above: Performed By: #### L 500.2500 ####[facility] [address] [place], [address] Creatinine [Mass/Vol] 2.79 mg/dL High 0.70-1.20 [facility] Comment on above: Performed By: #### L 500.2500 ####[facility] [address] [place], [address] ECRCL 18.74 ml/min Low 50-250 [facility] Comment on above: Performed By: #### L 500.2500 ####[facility] [address] [place], [address] GAP 15 Normal 5-15 [facility] Comment on above: Performed By: #### L 500.2500 ####[facility] [address] [place], [address] GFR/1.73 sq M.predicted among non-blacks MDRD (S/P/Bld) [Vol rate/Area] 22 mL/min/{1.73_m2} Low >60 [facility] Comment on above: Result Comment: mL/m in/1.73m2 CKD-EPI Creatinine Equation (2020) Performed By: #### L 500.2500 ####[facility] [address] [place], [address] Glucose [Mass/Vol] 447 mg/dL High 70-99 [facility] Comment on above: Performed By: #### L 500.2500 ####[facility] [address] [place], [address] Potassium [Moles/Vol] 4.9 mmol/L Normal 3.3-5.1 [facility] Comment on above: Performed By: #### L 500.2500 ####[facility] [address] [place], [address] Sodium [Moles/Vol] 137 mmol/L Normal 133-145 [facility] Comment on above: Performed By: #### L 500.2500 ####[facility] [address] [place], [address] Urea nitrogen [Mass/Vol] 69 mg/dL High 4-19 [facility] Comment on above: Performed By: #### L 500.2500 ####[facility] [address] [place], [address] BUN/CRE 23.8 RATIO High 10-20 [facility] Comment on above: Performed By: #### L 501.5200, L500.2500, L100.0100, L503.7505 ####[facility] [address] [place], [address] Calcium [Mass/Vol] 8.6 mg/dL Normal 7.6-11.0 [facility] Comment on above: Performed By: #### L 501.5200, L500.2500, L100.0100, L503.7505 ####[facility] [address] [place], [address] Chloride [Moles/Vol] 100 mmol/L Normal 98-108 [facility] Comment on above: Performed By: #### L 501.5200, L500.2500, L100.0100, L503.7505 ####[facility] [address] [place], [address] CO2 [Moles/Vol] 20.9 mmol/L Low 21.0-32.0 [facility] Comment on above: Performed By: #### L 501.5200, L500.2500, L100.0100, L503.7505 ####[facility] [address] [place], [address] Creatinine [Mass/Vol] 2.73 mg/dL High 0.70-1.20 [facility] Comment on above: Performed By: #### L 501.5200, L500.2500, L100.0100, L503.7505 ####[facility] [address] [place], [address] ECRCL 19.84 ml/min Low 50-250 [facility] Comment on above: Performed By: #### L 501.5200, L500.2500, L100.0100, L503.7505 ####[facility] [address] [place], [address] GAP 15 Normal 5-15 [facility] Comment on above: Performed By: #### L 501.5200, L500.2500, L100.0100, L503.7505 ####[facility] [address] [place], [address] GFR/1.73 sq M.predicted among non-blacks MDRD (S/P/Bld) [Vol rate/Area] 23 mL/min/{1.73_m2} Low >60 [facility] Comment on above: Result Comment: mL/m in/1.73m2 CKD-EPI Creatinine Equation (2020) Performed By: #### L 501.5200, L500.2500, L100.0100, L503.7505 ####[facility] [address] [place], [address] Glucose [Mass/Vol] 406 mg/dL High 70-99 [facility] Comment on above: Performed By: #### L 501.5200, L500.2500, L100.0100, L503.7505 ####[facility] [address] [place], [address] Potassium [Moles/Vol] 5.9 mmol/L High 3.3-5.1 [facility] Comment on above: Performed By: #### L 501.5200, L500.2500, L100.0100, L503.7505 ####[facility] [address] [place], [address] Sodium [Moles/Vol] 136 mmol/L Normal 133-145 [facility] Comment on above: Performed By: #### L 501.5200, L500.2500, L100.0100, L503.7505 ####[facility] [address] [place], [address] Urea nitrogen [Mass/Vol] 65 mg/dL High 4-19 [facility] Comment on above: Performed By: #### L 501.5200, L500.2500, L100.0100, L503.7505 ####[facility] [address] [place], [address] Basophil percentageOrdered B y: Arnulfo Jose on 04-19-2025 Basophils/100 WBC (Bld) 0.5 % 0-1 [facility] Bedside Glucoseon 04-19-2025 FINGERSTICK GLU 393 mg/dL High 74-106 [facility] Comment on above: Result Comment: ADITI GEMENT OF PATIENT CARE PER NURSING PROTOCOL Performed By: #### L 501.080 ####[facility] [address] [place], [address] FINGERSTICK GLU 374 mg/dL High [address] [place] [address] Comment on above: Result Comment: ADITI GEMENT OF PATIENT CARE PER NURSING PROTOCOL Performed By: #### L 501.080 ####[facility] [address] [place], [address] FINGERSTICK GLU 376 mg/dL High [address] [place] [address] Comment on above: Result Comment: ADITI GEMENT OF PATIENT CARE PER NURSING PROTOCOL Performed By: #### L 501.080 ####[facility] [address] [place], [address] FINGERSTICK GLU 403 mg/dL High [address] [place] [address] Comment on above: Result Comment: ADITI GEMENT OF PATIENT CARE PER NURSING PROTOCOL Performed By: #### L 501.080 ####[facility] [address] [place], [address] FINGERSTICK GLU 437 mg/dL High [address] [place] [address] Comment on above: Result Comment: ADITI GEMENT OF PATIENT CARE PER NURSING PROTOCOL Performed By: #### L 501.080 ####[facility] [address] [place], [address] Bilirubin Test strip Ql (U)O rdered By: Nancy Henson on 04-19-2025 Bilirubin Ql (U) Negative Negative [facility] Blood Gases by CPSon 025 FILI TEST N/A Normal [facility] Comment on above: Performed By: #### L 9000.0800 ####[facility] [address] [place], [address] Base excess Calc (Bld) [Moles/Vol] -2 mmol/L Normal -2 to +2 [facility] Comment on above: Performed By: #### L 9000.0800 ####[facility] [address] [place], [address] Blood Gas Type ART Normal [facility] Comment on above: Performed By: #### L 9000.0800 ####[facility] [address] [place], [address] CO2 [Moles/Vol] 23 mmol/L Normal [facility] Comment on above: Performed By: #### L 9000.0800 ####[facility] [address] [place], [address] Comment AIRVO 50L 50% Normal [facility] Comment on above: Performed By: #### L 9000.0800 ####[facility] [address] [place], [address] HCO3 (Bld) [Moles/Vol] 22.4 mmol/L Normal 22-26 [facility] Comment on above: Performed By: #### L 9000.0800 ####[facility] [address] [place], [address] Mode Not entered Normal [facility] Comment on above: Performed By: #### L 9000.0800 ####[facility] [address] [place], [address] O2 Delivery Dev AIRVO Normal [facility] Comment on above: Performed By: #### L 9000.0800 ####[facility] [address] [place], [address] pCO2 33.2 mmHg Low 35-45 [facility] Comment on above: Performed By: #### L 9000.0800 ####[facility] [address] [place], [address] pH (Bld) 7.44 [pH] Normal 7.35-7.45 [facility] Comment on above: Performed By: #### L 9000.0800 ####[facility] [address] [place], [address] PO2 92 mmHG Normal 75-100 [facility] Comment on above: Performed By: #### L 9000.0800 ####[facility] [address] [place], [address] SITE L Radial Normal [facility] Comment on above: Performed By: #### L 9000.0800 ####[facility] [address] [place], [address] SO2 98 Normal 95-99 [facility] Comment on above: Performed By: #### L 9000.0800 ####[facility] [address] [place], [address] FILI TEST Positive Normal [facility] Comment on above: Performed By: #### L 9000.0800 ####[facility] [address] [place], [address] Base excess Calc (Bld) [Moles/Vol] -2 mmol/L Normal -2 to +2 [facility] Comment on above: Performed By: #### L 9000.0800 ####[facility] [address] [place], [address] Blood Gas Type ART Normal [facility] Comment on above: Performed By: #### L 9000.0800 ####[facility] [address] [place], [address] CO2 [Moles/Vol] 23 mmol/L Normal [facility] Comment on above: Performed By: #### L 0.0800 ####[facility] [address] [place], [address] FI02 50.0 Normal [facility] Comment on above: Performed By: #### L 9000.0800 ####[facility] [address] [place], [address] HCO3 (Bld) [Moles/Vol] 21.6 mmol/L Low 22-26 [facility] Comment on above: Performed By: #### L 9000.0800 ####[facility] [address] [place], [address] Mode Not entered [facility] Comment on above: Performed By: #### L 9000.0800 ####[facility] [address] [place], [address] O2 Delivery Dev HFNC Normal [facility] Comment on above: Performed By: #### L 0.0800 ####[facility] [address] [place], [address] pCO2 30.8 mmHg Low 35-45 [facility] Comment on above: Performed By: #### L 9000.0800 ####[facility] [address] [place], [address] pH (Bld) 7.45 [pH] Normal 7.35-7.45 [facility] Comment on above: Performed By: #### L 9000.0800 ####[facility] [address] [place], [address] PO2 103 mmHG High 75-100 [facility] Comment on above: Performed By: #### L 9000.0800 ####[facility] [address] [place], [address] SITE L Radial Normal [facility] Comment on above: Performed By: #### L 0.0800 ####[facility] [address] [place], [address] SO2 98 Normal 95-99 [facility] Comment on above: Performed By: #### L 9000.0800 ####[facility] [address] [place], [address] Blood base excess determinat ionOrdered By: Nancy Henson on 04-19-2025 Base excess Calc (BldV) [Moles/Vol] -2 mmol/L -2-2 [facility] Base excess Calc (BldV) [Moles/Vol] -2 mmol/L -2-2 [facility] Blood bicarbonate measuremen tOrdered By: Nancy Henson on 04-19-2025 HCO3 (Bld) [Moles/Vol] 22.4 mmol/L 22- [facility] HCO3 (Bld) [Moles/Vol] 21.6 mmol/L Low - [facility] CBC W/Diff, Automatedon 04-01 Absolute Lymph 0.33 X10 3/uL Low 0.83-4.51 [facility] Comment on above: Performed By: #### L 501.9985, L100.0100, L501.2300 ####[facility] [address] [place], [address] Absolute Neut 12.7 X10 3/uL High 2.0-7.7 [facility] Comment on above: Performed By: #### L 501.9985, L100.0100, L501.2300 ####[facility] [address] [place], [address] Basophils/100 WBC (Bld) 0.2 % Normal 0-1 [facility] Comment on above: Performed By: #### L 501.9985, L100.0100, L501.2300 ####[facility] [address] [place], [address] Eosinophils/100 WBC (Bld) 0.1 % Normal 0-5 [facility] Comment on above: Performed By: #### L 501.9985, L100.0100, L501.2300 ####[facility] [address] [place], [address] Erythrocyte distribution width (RBC) [Ratio] 13.4 % Normal 11.6-14.6 [facility] Comment on above: Performed By: #### L 501.9985, L100.0100, L501.2300 ####[facility] [address] [place], [address] Hematocrit (Bld) [Volume fraction] 23.7 % Low 40-54 [facility] Comment on above: Performed By: #### L 501.9985, L100.0100, L501.2300 ####[facility] [address] [place], [address] Hemoglobin (Bld) [Mass/Vol] 7.5 g/dL Low 13.0-16.5 [facility] Comment on above: Performed By: #### L 501.9985, L100.0100, L501.2300 ####[facility] [address] [place], [address] IG% 0.600 Normal 0.0-0.9 [facility] Comment on above: Result Comment: IG% - Immature Granulocytes (promyelocytes, myelocytes andmetamyelocytes) > 1% indicates that a LEFT SHIFT is Present. Performed By: #### L 501.9985, L100.0100, L501.2300 ####[facility] [address] [place], [address] Lymphocytes/100 WBC (Bld) 2.4 % Low 19-41 [facility] Comment on above: Performed By: #### L 501.9985, L100.0100, L501.2300 ####[facility] [address] [place], [address] MCH (RBC) [Entitic mass] 29.8 pg Normal 27.0-32.0 [facility] Comment on above: Performed By: #### L 501.9985, L100.0100, L501.2300 ####[facility] [address] [place], [address] MCHC (RBC) [Mass/Vol] 31.6 g/dL Low 32-36 [facility] Comment on above: Performed By: #### L 501.9985, L100.0100, L501.2300 ####[facility] [address] [place], [address] MCV (RBC) [Entitic vol] 94.0 fL Normal 80-94 [facility] Comment on above: Performed By: #### L 501.9985, L100.0100, L501.2300 ####[facility] [address] [place], [address] Monocytes/100 WBC (Bld) 2.4 % Normal 0-10 [facility] Comment on above: Performed By: #### L 501.9985, L100.0100, L501.2300 ####[facility] [address] [place], [address] Neutrophils/100 WBC (Bld) 94.3 % High 47-70 [facility] Comment on above: Performed By: #### L 501.9985, L100.0100, L501.2300 ####[facility] [address] [place], [address] Nucleated RBC (Bld) [#/Vol] 0 10*3/uL Normal 0-5 [facility] Comment on above: Performed By: #### L 501.9985, L100.0100, L501.2300 ####[facility] [address] [place], [address] Platelet mean volume (Bld) [Entitic vol] 11.3 fL Normal 6.2-12.0 [facility] Comment on above: Performed By: #### L 501.9985, L100.0100, L501.2300 ####[facility] [address] [place], [address] Platelets (Bld) [#/Vol] 218 10*3/uL Normal 150-450 [facility] Comment on above: Performed By: #### L 501.9985, L100.0100, L501.2300 ####[facility] [address] [place], [address] RBC (Bld) [#/Vol] 2.52 10*6/uL Low 4.6-6.2 [facility] Comment on above: Performed By: #### L 501.9985, L100.0100, L501.2300 ####[facility] [address] [place], [address] RDW SD 46.2 fl High 35.1-43.9 [facility] Comment on above: Performed By: #### L 501.9985, L100.0100, L501.2300 ####[facility] [address] [place], [address] WBC (Bld) [#/Vol] 13.5 10*3/uL High 4.4-11.0 [facility] Comment on above: Performed By: #### L 501.9985, L100.0100, L501.2300 ####[facility] [address] [place], [address] Absolute Lymph 1.40 X10 3/uL Normal 0.83-4.51 [facility] Comment on above: Performed By: #### L 501.5200, L500.2500, L100.0100, L503.7505 ####[facility] [address] [place], [address] Absolute Neut 11.5 X10 3/uL High 2.0-7.7 [facility] Comment on above: Performed By: #### L 501.5200, L500.2500, L100.0100, L503.7505 ####[facility] [address] [place], [address] Basophils/100 WBC (Bld) 0.5 % Normal 0-1 [facility] Comment on above: Performed By: #### L 501.5200, L500.2500, L100.0100, L503.7505 ####[facility] [address] [place], [address] Eosinophils/100 WBC (Bld) 1.0 % Normal 0-5 [facility] Comment on above: Performed By: #### L 501.5200, L500.2500, L100.0100, L503.7505 ####[facility] [address] [place], [address] Erythrocyte distribution width (RBC) [Ratio] 13.4 % Normal 11.6-14.6 [facility] Comment on above: Performed By: #### L 501.5200, L500.2500, L100.0100, L503.7505 ####[facility] [address] [place], [address] Hematocrit (Bld) [Volume fraction] 27.5 % Low 40-54 [facility] Comment on above: Performed By: #### L 501.5200, L500.2500, L100.0100, L503.7505 ####[facility] [address] [place], [address] Hemoglobin (Bld) [Mass/Vol] 8.8 g/dL Low 13.0-16.5 [facility] Comment on above: Performed By: #### L 501.5200, L500.2500, L100.0100, L503.7505 ####[facility] [address] [place], [address] IG% 0.500 Normal 0.0-0.9 [facility] Comment on above: Result Comment: IG% - Immature Granulocytes (promyelocytes, myelocytes andmetamyelocytes) > 1% indicates that a LEFT SHIFT is Present. Performed By: #### L 501.5200, L500.2500, L100.0100, L503.7505 ####[facility] [address] [place], [address] Lymphocytes/100 WBC (Bld) 10.0 % Low 19-41 [facility] Comment on above: Performed By: #### L 501.5200, L500.2500, L100.0100, L503.7505 ####[facility] [address] [place], [address] MCH (RBC) [Entitic mass] 30.0 pg Normal 27.0-32.0 [facility] Comment on above: Performed By: #### L 501.5200, L500.2500, L100.0100, L503.7505 ####[facility] [address] [place], [address] MCHC (RBC) [Mass/Vol] 32.0 g/dL Normal 32-36 [facility] Comment on above: Performed By: #### L 501.5200, L500.2500, L100.0100, L503.7505 ####[facility] [address] [place], [address] MCV (RBC) [Entitic vol] 93.9 fL Normal 80-94 [facility] Comment on above: Performed By: #### L 501.5200, L500.2500, L100.0100, L503.7505 ####[facility] [address] [place], [address] Monocytes/100 WBC (Bld) 5.7 % Normal 0-10 [facility] Comment on above: Performed By: #### L 501.5200, L500.2500, L100.0100, L503.7505 ####[facility] [address] [place], [address] Neutrophils/100 WBC (Bld) 82.3 % High 47-70 [facility] Comment on above: Performed By: #### L 501.5200, L500.2500, L100.0100, L503.7505 ####[facility] [address] [place], [address] Nucleated RBC (Bld) [#/Vol] 0 10*3/uL Normal 0-5 [facility] Comment on above: Performed By: #### L 501.5200, L500.2500, L100.0100, L503.7505 ####[facility] [address] [place], [address] Platelet mean volume (Bld) [Entitic vol] 11.4 fL Normal 6.2-12.0 [facility] Comment on above: Performed By: #### L 501.5200, L500.2500, L100.0100, L503.7505 ####[facility] [address] [place], [address] Platelets (Bld) [#/Vol] 289 10*3/uL Normal 150-450 [facility] Comment on above: Performed By: #### L 501.5200, L500.2500, L100.0100, L503.7505 ####[facility] [address] [place], [address] RBC (Bld) [#/Vol] 2.93 10*6/uL Low 4.6-6.2 [facility] Comment on above: Performed By: #### L 501.5200, L500.2500, L100.0100, L503.7505 ####[facility] [address] [place], [address] RDW SD 46.1 fl High 35.1-43.9 [facility] Comment on above: Performed By: #### L 501.5200, L500.2500, L100.0100, L503.7505 ####[facility] [address] [place], [address] WBC (Bld) [#/Vol] 14.0 10*3/uL High 4.4-11.0 [facility] Comment on above: Performed By: #### L 501.5200, L500.2500, L100.0100, L503.7505 ####[facility] [address] [place], [address] Carbon dioxide, total [Moles /volume] in Central venous bloodOrdered By: Arnulfo Jose on 04-19-2025 CO2 [Moles/Vol] 20.9 mmol/L Low 21.0-32.0 [facility] Chest 1 View (Portable)on Chest 1 View (Portable) Normal [facility] Chloride assayOrdered By: Stephenie Jose on 04-19-2025 Chloride [Moles/Vol] 100 mmol/L 98-108 [facility] Comprehensive Metabolic Prof ilon 04-19-2025 Albumin [Mass/Vol] 3.3 g/dL Low 3.4-4.8 [facility] Comment on above: Performed By: #### L 501.9520, L503.7505, L500.4050 ####[facility] [address] [place], [address] Albumin/Globulin [Mass ratio] 1.3 {ratio} Normal 0.9-2.4 [facility] Comment on above: Performed By: #### L 501.9520, L503.7505, L500.4050 ####[facility] [address] [place], [address] ALK PHOS 76 U/L Normal 40-129 [facility] Comment on above: Performed By: #### L 501.9520, L503.7505, L500.4050 ####[facility] [address] [place], [address] ALT [Catalytic activity/Vol] 30 U/L Normal <=46 [facility] Comment on above: Performed By: #### L 501.9520, L503.7505, L500.4050 ####[facility] [address] [place], [address] AST [Catalytic activity/Vol] 26 U/L Normal <=37 [facility] Comment on above: Performed By: #### L 501.9520, L503.7505, L500.4050 ####[facility] [address] [place], [address] Bilirubin [Mass/Vol] 0.31 mg/dL Normal 0.00-1.30 [facility] Comment on above: Performed By: #### L 501.9520, L503.7505, L500.4050 ####[facility] [address] [place], [address] BUN/CRE 23.4 RATIO High 10-20 [facility] Comment on above: Performed By: #### L 501.9520, L503.7505, L500.4050 ####[facility] [address] [place], [address] Calcium [Mass/Vol] 9.3 mg/dL Normal 7.6-11.0 [facility] Comment on above: Performed By: #### L 501.9520, L503.7505, L500.4050 ####[facility] [address] [place], [address] Chloride [Moles/Vol] 101 mmol/L Normal 98-108 [facility] Comment on above: Performed By: #### L 501.9520, L503.7505, L500.4050 ####[facility] [address] [place], [address] CO2 [Moles/Vol] 17.8 mmol/L Low 21.0-32.0 [facility] Comment on above: Performed By: #### L 501.9520, L503.7505, L500.4050 ####[facility] [address] [place], [address] Creatinine [Mass/Vol] 2.95 mg/dL High 0.70-1.20 [facility] Comment on above: Performed By: #### L 501.9520, L503.7505, L500.4050 ####[facility] [address] [place], [address] ECRCL 17.72 ml/min Low 50-250 [facility] Comment on above: Performed By: #### L 501.9520, L503.7505, L500.4050 ####[facility] [address] [place], [address] GAP 18 High 5-15 [facility] Comment on above: Performed By: #### L 501.9520, L503.7505, L500.4050 ####[facility] [address] [place], [address] GFR/1.73 sq M.predicted among non-blacks MDRD (S/P/Bld) [Vol rate/Area] 21 mL/min/{1.73_m2} Low >60 [facility] Comment on above: Result Comment: mL/m in/1.73m2 CKD-EPI Creatinine Equation (2020) Performed By: #### L 501.9520, L503.7505, L500.4050 ####[facility] [address] [place], [address] Globulin (S) [Mass/Vol] 2.5 g/dL Normal 2.2-4.2 [facility] Comment on above: Performed By: #### L 501.9520, L503.7505, L500.4050 ####[facility] [address] [place], [address] Glucose [Mass/Vol] 447 mg/dL High 70-99 [facility] Comment on above: Performed By: #### L 501.9520, L503.7505, L500.4050 ####[facility] [address] [place], [address] Potassium [Moles/Vol] 5.2 mmol/L High 3.3-5.1 [facility] Comment on above: Performed By: #### L 501.9520, L503.7505, L500.4050 ####[facility] [address] [place], [address] Sodium [Moles/Vol] 137 mmol/L Normal 133-145 [facility] Comment on above: Performed By: #### L 501.9520, L503.7505, L500.4050 ####[facility] [address] [place], [address] T PROT 5.8 g/dL Low 5.9-8.4 [facility] Comment on above: Performed By: #### L 501.9520, L503.7505, L500.4050 ####[facility] [address] [place], [address] Urea nitrogen [Mass/Vol] 69 mg/dL High 4-19 [facility] Comment on above: Performed By: #### L 501.9520, L503.7505, L500.4050 ####[facility] [address] [place], [address] Consultation - Nephrologyon 04-19-2025 Consultation - Nephrology Normal [facility] D-Dimer Quantitative (DVT/PE )on 04-19-2025 D-DIMER QUANT 2.17 FEU/ug/m Invalid Interpretation Code 0.27-0.49 [facility] Comment on above: Result Comment: D-Di shyanne ELEVATED (>0.49): Additional studies and clinicalassessments are indicated to conclude diagnosis of:Deep Vein Thrombosis (DVT) or Pulmonary Embolism (PE)CRITICAL VALUE CALLED TO DELFIN ALBRIGHT04/19/25 0101 Lydia Villanueva.RESULTS READ BACK BY SAME. Performed By: #### L 509.7001, L300.8000 ####[facility] [address] [place], [place], [address] Emergency Department Summary on 04-19-2025 Emergency Department Summary Normal [facility] Eosinophil percentageOrdered By: Arnulfo Jose on 04-19-2025 Eosinophils/100 WBC (Bld) 1.0 % 0-5 [facility] Erythrocyte distribution wid th ratioOrdered By: Arnulfo Jose on 04-19-2025 Erythrocyte distribution width (RBC) [Ratio] 13.4 % 11.6-14.6 [facility] Erythrocyte distribution wid th standard deviationOrdered By: Arnulfo Jose on 04-19-2025 Erythrocyte distribution width (RBC) [Ratio] 46.1 fl High 35.1-43.9 [facility] Glomerular filtration rate ( GFR) estimation/1.73 sq m using serum, plasma, or whole bOrdered By: Arnulfo Jose on 04-19-2025 GFR/1.73 sq M.predicted among non-blacks MDRD (S/P/Bld) [Vol rate/Area] 23 mL/min/{1.73_m2} Low >60 [facility] deOrdered By: Nancy Henson on 04-19-2025 Glucose [Mass/Vol] 437 mg/dL High 74-106 [facility] H AND P Exam - Hospitaliston 04-19-2025 H&P Exam - Hospitalist Normal [facility] Hematocrit Auto (Bld) [Volum e fraction]Ordered By: Arnulfo Jose on 04-19-2025 Hematocrit (Bld) [Volume fraction] 27.5 % Low 40-54 [facility] Hemoglobin A1con 04-19-2025 HbA1c (Bld) [Mass fraction] 7.1 % High <=5.6 [facility] Comment on above: Result Comment: Norm al < 5.7 % Prediabetic 5.7 - 6.4 % Diabetic >or= 6.5 % Please note range changes. Performed By: #### L 501.9985, L100.0100, L501.2300 ####[facility] [address] [place], [place], [address] Hemoglobin A1c percentageOrd ered By: Nancy Henson on 04-19-2025 HbA1c (Bld) [Mass fraction] 7.1 % High <5.7 [facility] Hemoglobin measurementOrdere d By: Arnulfo Jose on 04-19-2025 Hemoglobin (Bld) [Mass/Vol] 8.8 g/dL Low 13.0-16.5 [facility] Immature granulocytes/100 WB C Auto (Bld)Ordered By: Arnulfo Jose on 04-19-2025 Immature granulocytes/100 WBC (Bld) 0.500 % 0.0-0.9 [facility] Influenza virus A and B and SARS-CoV-2 (COVID-19) and Respiratory syncytial virus RNAOrdered By: Arnulfo Jose on 04-19-2025 SARS-CoV-2 (COVID-19) RNA ALICE+probe Ql (Unsp spec) [facility] Ketones Test strip Ql (U)Ord ered By: Nancy Henson on 04-19-2025 Ketones Ql (U) Negative Negative [facility] L499.0042on 04-19-2025 Trop T High Sen 385 ng/L Invalid Interpretation Code <=22 [facility] Comment on above: Result Comment: Crit ical Result(s) Called at 0636: by: BIPIN BROWNE. ??Results read back by same. Performed By: #### L 499.0042 ####[facility] [address] [place], [place], [address] L499.0043on 04-19-2025 Trop T High Sen 350 ng/L Invalid Interpretation Code <=22 [facility] Comment on above: Result Comment: Crit ical Result(s) Called at: 04/19/2025-10:51 by: Neal Fowler.??Results read back by same. Performed By: #### L 499.0043 ####[facility] [address] [place], [address] L501.4021on 04-19-2025 Trop T High Sen 394 ng/L Invalid Interpretation Code <=22 [facility] Comment on above: Result Comment: Crit ical Result(s) Called at 0511: by: BIPIN MEGHNA SILVERMAN.??Results read back by same. Performed By: #### L 501.4021 ####[facility] [address] [place], [address] L503.7505on 04-19-2025 Natriuretic peptide B (Bld) [Mass/Vol] 10492 pg/mL High <=1800 [facility] Comment on above: Result Comment: Hear t Failure Unlikely: < 300 pg/mLHeart Failure Likely< 50 Years: > 450 pg/mL50-75 Years: > 900 pg/mL>75 Years: > 1800 pg/mL Performed By: #### L 501.9520, L503.7505, L500.4050 ####[facility] [address] [place], [address] Natriuretic peptide B (Bld) [Mass/Vol] 68727 pg/mL High <=1800 [facility] Comment on above: Result Comment: Hear t Failure Unlikely: < 300 pg/mLHeart Failure Likely< 50 Years: > 450 pg/mL50-75 Years: > 900 pg/mL>75 Years: > 1800 pg/mL Performed By: #### L 501.5200, L500.2500, L100.0100, L503.7505 ####[facility] [address] [place], [address] L509.7001on 04-19-2025 Procalcitonin 0.10 ng/mL Normal <=0.10 [facility] Comment on above: Result Comment: Inte rpretation:<0.10-0.25 ng/mL: Antibiotic therapy discouraged. Bacterialinfection unlikely.0.25-0.50 ng/mL: Antibiotic therapy encouraged. Bacterialinfection possible.>0.50 ng/mL: Antibiotic therapy strongly encouraged.Suggestive of presence of bacterial infection.PCT should always be interpreted in the clinical context ofthe patient. Therefore, clinicians should use the PCTresults in conjunction with other laboratory findings andclinical signs of the patient. Performed By: #### L 509.7001, L300.8000 ####[facility] [address] [place], [address] Lactic Acidon 04-19-2025 Lactate [Moles/Vol] 2.7 mmol/L Invalid Interpretation Code 0.0-2.0 [facility] Comment on above: Result Comment: Crit ical Result(s) Called at: 04/19/2025-10:35 by: Iraida.??Results read back by same. Performed By: #### L 871.6008 ####[facility] [address] [place], [address] Lactate [Moles/Vol] 4.8 mmol/L Invalid Interpretation Code 0.0-2.0 [facility] Comment on above: Order Comment: Y Result Comment: Crit ical Result(s) Called at 0448: by: BIPIN BROWNE. ??Results read back by same. Performed By: #### L [id number] ####[facility] [address] [place], [place], [address] Lung Scan Vent/Perfon 2024 Lung Scan Vent/Perf Normal [facility] M100.678on 04-19-2025 M100.678 SARS-CoV-2 (COVID 19) Negative INFLUENZA A Negative INFLUENZA B Negative RSV PCR Negative Normal [facility] Comment on above: Performed By: #### M 100.678 ####[facility] [address] [place], [place], [address] MCV (mean corpuscular volume ) determinationOrdered By: Arnulfo Jose on 04-19-2025 MCV (RBC) [Entitic vol] 93.9 fL 80-94 [facility] Magnesiumon 04-19-2025 Magnesium [Mass/Vol] 2.3 mg/dL High 1.5-2.2 [facility] Comment on above: Performed By: #### L 501.5200, L500.2500, L100.0100, L503.7505 ####[facility] [address] [place], [place], [address] Magnesium measurement (mass/ volume)Ordered By: Arnulfo Jose on 04-19-2025 Magnesium (Unsp spec) [Mass/Vol] 2.3 mg/dL High 1.5-2.2 [facility] Mean corpuscular hemoglobin (MCH) determinationOrdered By: Arnulfo Jose on 04-19-2025 MCH (RBC) [Entitic mass] 30.0 pg 27.0-32.0 [facility] Measurement, pHOrdered By: Nadeem Henson on 04-19-2025 pH (Unsp spec) 7.44 [pH] 7.35-7.45 [facility] pH (Unsp spec) 7.45 [pH] 7.35-7.45 [facility] Monocyte percentageOrdered B y: Arnulfo Jose on 04-19-2025 Monocytes/100 WBC (Bld) 5.7 % 0-10 [facility] Mucus LM Ql (Urine sed)Order ed By: Nancy Henson on 04-19-2025 Mucus Ql (Urine sed) 0 SEEN /hpf [facility] Natriuretic peptide.B prohor katja N-Terminal [Mass/volume] in Serum or PlasmaOrdered By: Nancy Henson on 04-19-2025 Natriuretic peptide.B prohormone N-Terminal [Mass/Vol] 83909 pg/mL High <1800 [facility] Natriuretic peptide.B prohor katja N-Terminal [Mass/volume] in Serum or PlasmaOrdered By: Arnulfo Jose on 04-19-2025 Natriuretic peptide.B prohormone N-Terminal [Mass/Vol] 85426 pg/mL High <1800 [facility] Neutrophil percentageOrdered By: Arnulfo Jose on 04-19-2025 Neutrophils/100 WBC (Bld) 82.3 % High 47-70 [facility] Nitrite Test strip Ql (U)Ord ered By: Nancy Henson on 04-19-2025 Nitrite Ql (U) Negative Negative [facility] No Panel InformationOrdered By: Nancy Henson on 04-19-2025 ART [facility] L Radial [facility] Not entered [facility] AIRVO [facility] AIRVO 50L 50% [facility] ART [facility] L Radial [facility] Not entered [facility] HFNC [facility] Phosphoruson 04-19-2025 Phosphate [Mass/Vol] 4.0 mg/dL Normal 2.7-4.5 [facility] Comment on above: Performed By: #### L 501.9985, L100.0100, L501.2300 ####[facility] [address] [place], [address] Platelet countOrdered By: Stephenie Jose on 04-19-2025 Platelets (Bld) [#/Vol] 289 10*3/uL 150-450 [facility] Potassium measurement (mass/ volume)Ordered By: Arnulfo Jose on 04-19-2025 Potassium (Unsp spec) [Mass/Vol] 5.9 mmol/L High 3.3-5.1 [facility] Procalcitonin [Mass/volume] in Serum or Plasma by ImmunoassayOrdered By: Arnulfo Jose on 04-19-2025 Procalcitonin IA [Mass/Vol] 0.10 ng/mL <0.11 [facility] Protein Test strip Ql (U)Ord ered By: Nancy Henson on 04-19-2025 Protein Ql (U) 30 mg/dl High Negative [facility] RBC Auto (Bld) [#/Vol]Ordere d By: Arnulfo Jose on 04-19-2025 RBC (Bld) [#/Vol] 2.93 10*6/uL Low 4.6-6.2 [facility] Serum creatinine measurement (mass/volume)Ordered By: Arnulfo Jose on 04-19-2025 Creatinine [Mass/Vol] 2.73 mg/dL High 0.70-1.20 [facility] Serum glucose measurement (m ass/volume)Ordered By: Arnulfo Jose on 04-19-2025 Glucose [Mass/Vol] 406 mg/dL High 70-99 [facility] Serum or plasma calcium nikkie urement (mass/volume)Ordered By: Arnulfo Jose on 04-19-2025 Calcium [Mass/Vol] 8.6 mg/dL 7.6-11.0 [facility] Serum or plasma urea nitroge n measurement (mass/volume)Ordered By: Arnulfo Jose on 04-19-2025 Urea nitrogen [Mass/Vol] 65 mg/dL High 4-19 [facility] Sodium levelOrdered By: Tyree Jose on 04-19-2025 Sodium [Moles/Vol] 136 mmol/L 133-145 [facility] Squamous epithelial cells de tection in urine sediment by light microscopyOrdered By: Nancy Henson on 04-19-2025 Epithelial cells.squamous LM Ql (Urine sed) 0 SEEN /hpf 0-5 [facility] TSH DL <= 0.005 mIU/L QnOrde red By: Nancy Henson on 04-19-2025 TSH Qn 1.730 uIU/mL 0.300-4.200 [facility] Thyroid Stim Hormone (TSH)on 04-19-2025 TSH 1.730 uIU/mL Normal 0.300-4.200 [facility] Comment on above: Performed By: #### L 501.9520, L503.7505, L500.4050 ####[facility] [address] [place], [address] Total carbon dioxide measure mentOrdered By: Nancy Henson on 04-19-2025 CO2 [Moles/Vol] 23 mmol/L [facility] CO2 [Moles/Vol] 23 mmol/L [facility] Troponin T.cardiac [Mass/vol ume] in Serum or Plasma by High sensitivity methodOrdered By: Nancy Henson on 04-19-2025 Troponin T.cardiac High sensitivity method [Mass/Vol] 350 ng/L High <22 [facility] Troponin T.cardiac High sensitivity method [Mass/Vol] 385 ng/L High <22 [facility] Troponin T.cardiac High sensitivity method [Mass/Vol] 394 ng/L High <22 [facility] Type AND Screenon 04-19-2025 Ab SCREEN GEL Negative Normal [facility] Comment on above: Order Comment: A Performed By: #### B TS ####[facility] [address] [place], [address] Urinalysis, Completeon 04-19 BACTERIA 0 SEEN Normal None Seen [facility] Comment on above: Order Comment: CLEAN CATCH Performed By: #### L 400.0001 ####[facility] [address] [place], [address] EPI,SQUAMOUS 0 SEEN Normal 0-5 [facility] Comment on above: Order Comment: CLEAN CATCH Performed By: #### L 400.0001 ####[facility] [address] [place], [address] Mucus Ql (Urine sed) 0 SEEN Normal [facility] Comment on above: Order Comment: CLEAN CATCH Performed By: #### L 400.0001 ####[facility] [address] [place], [address] RBC 0 SEEN Normal 0-5 [facility] Comment on above: Order Comment: CLEAN CATCH Performed By: #### L 400.0001 ####[facility] [address] [place], [address] WBC 0 SEEN Normal 0-5 [facility] Comment on above: Order Comment: CLEAN CATCH Performed By: #### L 400.0001 ####[facility] [address] [place], [address] Urine clarityOrdered By: Saravanan Henson on 04-19-2025 Clarity (U) Clear Clear [facility] Urine color determinationOrd ered By: Nancy Henson on 04-19-2025 Color (U) Yellow Yellow [facility] Urine glucose detectionOrder ed By: Nancy Henson on 04-19-2025 Glucose Ql (U) 250 mg/dl High Normal [facility] Urine leukocyte esterase det ection by dipstickOrdered By: Nancy Henson on 04-19-2025 Leukocyte esterase Test strip Ql (U) Negative Negative [facility] Urine pHOrdered By: Nancy brooks on 04-19-2025 pH (U) 6.0 [pH] 5.0 - 8.0 [facility] Urine sediment bacteria coun t by microscopy (number/high power field)Ordered By: Nancy Henson on 04-19-2025 Bacteria LM.HPF (Urine sed) [#/Area] 0 /[HPF] None Seen [facility] Urine specific gravity measu rementOrdered By: Nancy Henson on 04-19-2025 Specific gravity (U) [Rel density] 1.015 1.002-1.030 [facility] Urine urobilinogen measureme ntOrdered By: Nancy Henson on 04-19-2025 Urobilinogen Ql (U) Normal mg/dl Normal [facility] Venous Duplex US - Karin Extre mon 04-19-2025 Venous Duplex US - Karin Extrem Normal [facility] Venous duplex ultrasound rep ortOrdered By: Oracio Payan on 04-19-2025 US Vein [facility] Other Phone: White blood cell (WBC) count Ordered By: Arnulfo Jose on 04-19-2025 WBC (Bld) [#/Vol] 14.0 10*3/uL High 4.4-11.0 [facility] White blood cell countOrdere d By: Nancy Henson on 04-19-2025 White blood cell count 0 SEEN /hpf 0-5 [facility] CBC W/Diff, Automatedon 04-01 Absolute Neut Normal 2.0-7.7 [facility] Comment on above: Result Comment: Canc elled via OM: Order cancelled - Patient discharged Performed By: #### L 100.0100 ####[facility] [address] [place], [address] HCT Normal 40-54 [facility] Comment on above: Result Comment: Canc elled via OM: Order cancelled - Patient discharged Performed By: #### L 100.0100 ####[facility] [address] [place], [address] HGB Normal 13.0-16.5 [facility] Comment on above: Result Comment: Canc elled via OM: Order cancelled - Patient discharged Performed By: #### L 100.0100 ####[facility] [address] [place], [address] MCH Normal 27.0-32.0 [facility] Comment on above: Result Comment: Canc elled via OM: Order cancelled - Patient discharged Performed By: #### L 100.0100 ####[facility] [address] [place], [address] MCHC Normal 32-36 [facility] Comment on above: Result Comment: Canc elled via OM: Order cancelled - Patient discharged Performed By: #### L 100.0100 ####[facility] [address] [place], [address] MCV Normal 80-94 [facility] Comment on above: Result Comment: Canc elled via OM: Order cancelled - Patient discharged Performed By: #### L 100.0100 ####[facility] [address] [place], [address] NEUT% Normal 47-70 [facility] Comment on above: Result Comment: Canc elled via OM: Order cancelled - Patient discharged Performed By: #### L 100.0100 ####[facility] [address] [place], [address] PLT Normal 150-450 [facility] Comment on above: Result Comment: Canc elled via OM: Order cancelled - Patient discharged Performed By: #### L 100.0100 ####[facility] [address] [place], [address] RBC Normal 4.6-6.2 [facility] Comment on above: Result Comment: Canc elled via OM: Order cancelled - Patient discharged Performed By: #### L 100.0100 ####[facility] [address] [place], [address] RDW CV Normal 11.6-14.6 [facility] Comment on above: Result Comment: Canc elled via OM: Order cancelled - Patient discharged Performed By: #### L 100.0100 ####[facility] [address] [place], [address] RDW SD Normal 35.1-43.9 [facility] Comment on above: Result Comment: Canc elled via OM: Order cancelled - Patient discharged Performed By: #### L 100.0100 ####[facility] [address] [place], [address] WBC Normal 4.4-11.0 [facility] Comment on above: Result Comment: Canc elled via OM: Order cancelled - Patient discharged Performed By: #### L 100.0100 ####[facility] [address] [place], [address] Absolute lymphocyte countOrd ered By: Grace Arnold on 04-10-2025 Lymphocytes Auto (Unsp spec) [#/Vol] 1.09 10*3/uL 0.83-4.51 [facility] Absolute neutrophil countOrd ered By: Grace Arnold on 04-10-2025 Neutrophils (Bld) [#/Vol] 9.6 10*3/uL High 2.0-7.7 [facility] Anion gap in Serum or Plasma Ordered By: Grace Arnold on 04-10-2025 Anion gap [Moles/Vol] 13 mmol/L 5-15 [facility] Automated lymphocyte count a s percentage of total leukocytesOrdered By: Grace Arnold on 04-10-2025 Lymphocytes/100 WBC Auto (Unsp spec) 9.4 % Low 19-41 [facility] BUN/creatinine ratioOrdered By: Grace Arnold on 04-10-2025 Urea nitrogen/Creatinine [Mass ratio] 22.8 mg/mg High 10-20 [facility] Basic Metabolic Profile (BMP )on 04-10-2025 BUN/CRE 22.8 RATIO High 10-20 [facility] Comment on above: Performed By: #### L 500.2500 ####[facility] [address] [place], [address] Calcium [Mass/Vol] 8.5 mg/dL Normal 7.6-11.0 [facility] Comment on above: Performed By: #### L 500.2500 ####[facility] [address] [place], [address] Chloride [Moles/Vol] 101 mmol/L Normal 98-108 [facility] Comment on above: Performed By: #### L 500.2500 ####[facility] [address] [place], [address] CO2 [Moles/Vol] 22.6 mmol/L Normal 21.0-32.0 [facility] Comment on above: Performed By: #### L 500.2500 ####[facility] [address] [place], [address] Creatinine [Mass/Vol] 3.48 mg/dL High 0.70-1.20 [facility] Comment on above: Performed By: #### L 500.2500 ####[facility] [address] [place], [address] ECRCL 15.24 ml/min Low 50-250 [facility] Comment on above: Performed By: #### L 500.2500 ####[facility] [address] [place], [address] GAP 13 Normal 5-15 [facility] Comment on above: Performed By: #### L 500.2500 ####[facility] [address] [place], [address] GFR/1.73 sq M.predicted among non-blacks MDRD (S/P/Bld) [Vol rate/Area] 17 mL/min/{1.73_m2} Low >60 [facility] Comment on above: Result Comment: mL/m in/1.73m2 CKD-EPI Creatinine Equation (2020) Performed By: #### L 500.2500 ####[facility] [address] [place], [address] Glucose [Mass/Vol] 287 mg/dL High 70-99 [facility] Comment on above: Performed By: #### L 500.2500 ####[facility] [address] [place], [address] Potassium [Moles/Vol] 4.2 mmol/L Normal 3.3-5.1 [facility] Comment on above: Performed By: #### L 500.2500 ####[facility] [address] [place], [address] Sodium [Moles/Vol] 137 mmol/L Normal 133-145 [facility] Comment on above: Performed By: #### L 500.2500 ####[facility] [address] [place], [address] Urea nitrogen [Mass/Vol] 79 mg/dL High 4-19 [facility] Comment on above: Performed By: #### L 500.2500 ####[facility] [address] [place], [address] Basophil percentageOrdered B y: Grace Arnold on 04-10-2025 Basophils/100 WBC (Bld) 0.1 % 0-1 [facility] Bedside Glucoseon 04-10-2025 FINGERSTICK GLU 223 mg/dL High 74-106 [facility] Comment on above: Result Comment: ADITI ESCOBEDO OF PATIENT CARE PER NURSING PROTOCOL Performed By: #### L 501.080 ####[facility] [address] [place], [address] FINGERSTICK GLU 274 mg/dL High 74-106 [facility] Comment on above: Result Comment: ADITI ESCOBEDO OF PATIENT CARE PER NURSING PROTOCOL Performed By: #### L 501.080 ####[facility] [address] [place], [address] CBC W/Diff, Automatedon 06-1 0-2025 Absolute Lymph 1.09 X10 3/uL Normal 0.83-4.51 [facility] Comment on above: Performed By: #### L 100.0100 ####[facility] [address] [place], [address] Absolute Neut 9.6 X10 3/uL High 2.0-7.7 [facility] Comment on above: Performed By: #### L 100.0100 ####[facility] [address] [place], [address] Basophils/100 WBC (Bld) 0.1 % Normal 0-1 [facility] Comment on above: Performed By: #### L 100.0100 ####[facility] [address] [place], [address] Eosinophils/100 WBC (Bld) 0.1 % Normal 0-5 [facility] Comment on above: Performed By: #### L 100.0100 ####[facility] [address] [place], [address] Erythrocyte distribution width (RBC) [Ratio] 13.6 % Normal 11.6-14.6 [facility] Comment on above: Performed By: #### L 100.0100 ####[facility] [address] [place], [address] Hematocrit (Bld) [Volume fraction] 26.0 % Low 40-54 [facility] Comment on above: Performed By: #### L 100.0100 ####[facility] [address] [place], [address] Hemoglobin (Bld) [Mass/Vol] 8.6 g/dL Low 13.0-16.5 [facility] Comment on above: Performed By: #### L 100.0100 ####[facility] [address] [place], [address] IG% 0.800 Normal 0.0-0.9 [facility] Comment on above: Result Comment: IG% - Immature Granulocytes (promyelocytes, myelocytes andmetamyelocytes) > 1% indicates that a LEFT SHIFT is Present. Performed By: #### L 100.0100 ####[facility] [address] [place], [address] Lymphocytes/100 WBC (Bld) 9.4 % Low 19-41 [facility] Comment on above: Performed By: #### L 100.0100 ####[facility] [address] [place], [address] MCH (RBC) [Entitic mass] 30.2 pg Normal 27.0-32.0 [facility] Comment on above: Performed By: #### L 100.0100 ####[facility] [address] [place], [address] MCHC (RBC) [Mass/Vol] 33.1 g/dL Normal 32-36 [facility] Comment on above: Performed By: #### L 100.0100 ####[facility] [address] [place], [address] MCV (RBC) [Entitic vol] 91.2 fL Normal 80-94 [facility] Comment on above: Performed By: #### L 100.0100 ####[facility] [address] [place], [address] Monocytes/100 WBC (Bld) 7.0 % Normal 0-10 [facility] Comment on above: Performed By: #### L 100.0100 ####[facility] [address] [place], [address] Neutrophils/100 WBC (Bld) 82.6 % High 47-70 [facility] Comment on above: Performed By: #### L 100.0100 ####[facility] [address] [place], [address] Nucleated RBC (Bld) [#/Vol] 0 10*3/uL Normal 0-5 [facility] Comment on above: Performed By: #### L 100.0100 ####[facility] [address] [place], [address] Platelet mean volume (Bld) [Entitic vol] 12.4 fL High 6.2-12.0 [facility] Comment on above: Performed By: #### L 100.0100 ####[facility] [address] [place], [address] Platelets (Bld) [#/Vol] 193 10*3/uL Normal 150-450 [facility] Comment on above: Performed By: #### L 100.0100 ####[facility] [address] [place], [address] RBC (Bld) [#/Vol] 2.85 10*6/uL Low 4.6-6.2 [facility] Comment on above: Performed By: #### L 100.0100 ####[facility] [address] [place], [address] RDW SD 45.1 fl High 35.1-43.9 [facility] Comment on above: Performed By: #### L 100.0100 ####[facility] [address] [place], [address] WBC (Bld) [#/Vol] 11.6 10*3/uL High 4.4-11.0 [facility] Comment on above: Performed By: #### L 100.0100 ####[facility] [address] [place], [address] Carbon dioxide, total [Moles /volume] in Central venous bloodOrdered By: Grace Arnold on 04-10-2025 CO2 [Moles/Vol] 22.6 mmol/L 21.0-32.0 [facility] Chloride assayOrdered By: Na na Florentino on 04-10-2025 Chloride [Moles/Vol] 101 mmol/L 98-108 [facility] Discharge Instructionon 04-01 Discharge Instruction Normal [facility] Eosinophil percentageOrdered By: Grace Arnold on 04-10-2025 Eosinophils/100 WBC (Bld) 0.1 % 0-5 [facility] Erythrocyte distribution wid th ratioOrdered By: Grace Arnold on 04-10-2025 Erythrocyte distribution width (RBC) [Ratio] 13.6 % 11.6-14.6 [facility] Erythrocyte distribution wid th standard deviationOrdered By: Grace Arnold on 04-10-2025 Erythrocyte distribution width (RBC) [Ratio] 45.1 fl High 35.1-43.9 [facility] Glomerular filtration rate ( GFR) estimation/1.73 sq m using serum, plasma, or whole bOrdered By: Grace Arnold on 04-10-2025 GFR/1.73 sq M.predicted among non-blacks MDRD (S/P/Bld) [Vol rate/Area] 17 mL/min/{1.73_m2} Low >60 [facility] Comment on above: mL/min/1.73m2 CKD-EP I Creatinine Equation (2020) Glucose measurement at bedsi deOrdered By: Grace Arnold on 04-10-2025 Glucose [Mass/Vol] 223 mg/dL High 74-106 [facility] Comment on above: MANAGEMENT OF PATIEN T CARE PER NURSING PROTOCOL Hematocrit Auto (Bld) [Volum e fraction]Ordered By: Grace Arnold on 04-10-2025 Hematocrit (Bld) [Volume fraction] 26.0 % Low 40-54 [facility] Hemoglobin measurementOrdere d By: Grace Arnold on 04-10-2025 Hemoglobin (Bld) [Mass/Vol] 8.6 g/dL Low 13.0-16.5 [facility] Immature granulocytes/100 WB C Auto (Bld)Ordered By: Grace Arnold on 04-10-2025 Immature granulocytes/100 WBC (Bld) 0.800 % 0.0-0.9 [facility] Comment on above: IG% - Immature Granu locytes (promyelocytes, myelocytes and metamyelocytes) > 1% indicates that a LEFT SHIFT is Present. MCV (mean corpuscular volume ) determinationOrdered By: Grace Arnold on 04-10-2025 MCV (RBC) [Entitic vol] 91.2 fL 80-94 [facility] Mean corpuscular hemoglobin (MCH) determinationOrdered By: Grace Arnold on 04-10-2025 MCH (RBC) [Entitic mass] 30.2 pg 27.0-32.0 [facility] Mean corpuscular hemoglobin concentration (MCHC) determinationOrdered By: Grace Arnold on 04-10-2025 MCHC (RBC) [Mass/Vol] 33.1 g/dL 32-36 [facility] Mean platelet volume determi nationOrdered By: Grace Arnold on 04-10-2025 Platelet mean volume (Bld) [Entitic vol] 12.4 fL High 6.2-12.0 [facility] Monocyte percentageOrdered B y: Grace Arnold on 04-10-2025 Monocytes/100 WBC (Bld) 7.0 % 0-10 [facility] Neutrophil percentageOrdered By: Grace Arnold on 04-10-2025 Neutrophils/100 WBC (Bld) 82.6 % High 47-70 [facility] Nucleated red blood cell per centageOrdered By: Grace Arnold on 04-10-2025 Nucleated RBC/100 WBC (Bld) [Ratio] 0 % 0-5 [facility] Platelet countOrdered By: Kesha Arnold on 04-10-2025 Platelets (Bld) [#/Vol] 193 10*3/uL 150-450 [facility] Potassium measurement (mass/ volume)Ordered By: Grace Arnold on 04-10-2025 Potassium (Unsp spec) [Mass/Vol] 4.2 mmol/L 3.3-5.1 [facility] RBC Auto (Bld) [#/Vol]Ordere d By: Grace Florentino on 04-10-2025 RBC (Bld) [#/Vol] 2.85 10*6/uL Low 4.6-6.2 [facility] Serum creatinine measurement (mass/volume)Ordered By: Grace Arnold on 04-10-2025 Creatinine [Mass/Vol] 3.48 mg/dL High 0.70-1.20 [facility] Serum glucose measurement (m ass/volume)Ordered By: Grace Arnold on 04-10-2025 Glucose [Mass/Vol] 287 mg/dL High 70-99 [facility] Serum or plasma calcium nikkie urement (mass/volume)Ordered By: Grace Arnold on 04-10-2025 Calcium [Mass/Vol] 8.5 mg/dL 7.6-11.0 [facility] Serum or plasma urea nitroge n measurement (mass/volume)Ordered By: Grace Arnold on 04-10-2025 Urea nitrogen [Mass/Vol] 79 mg/dL High 4-19 [facility] Sodium levelOrdered By: Grace Arnold on 04-10-2025 Sodium [Moles/Vol] 137 mmol/L 133-145 [facility] White blood cell (WBC) count Ordered By: Grace Arnold on 04-10-2025 WBC (Bld) [#/Vol] 11.6 10*3/uL High 4.4-11.0 [facility] ANCAon 04-09-2025 Atypical pANCA <1:20 Normal Neg:<1:20 [facility] Comment on above: Result Comment: The atypical pANCA pattern has been observed in asignificant percentage of patients with ulcerative colitis,primary sclerosing cholangitis and autoimmune hepatitis.Performed at: - [facility] [id number] Director: Todd Anderson PhD, Phone: [phone] Performed By: #### L 1445.1200 ####[facility] [address] [place], [place], [id number] Cytoplasmic Ab <1:20 Normal Neg:<1:20 [facility] Comment on above: Performed By: #### L 3300.1200 ####[facility] [address] [place], [place], [address] Perinuclear Ab. <1:20 Normal Neg:<1:20 [facility] Comment on above: Result Comment: The presence of positive fluorescence exhibiting P-ANCA orC-ANCA patterns alone is not specific for the diagnosis ofWegener's Granulomatosis (WG) or microscopic polyangiitis.Decisions about treatment should not be based solely onANCA IFA results. The [employer] AN[employer] Consensusrecommends follow up testing of positive sera with both ND-3 and MPO-ANCA enzyme immunoassays. As many as 5% serumsamples are positive only by EIA. Ref. AM J Clin Mwiljh3181;111:507-513. Performed By: #### L 3300.1200 ####[facility] [address] [place], [place], [id number] Anti-Glomerular Basement Mem bon 04-09-2025 ANTI-GLOM BM Ab < 0.2 Normal 0.0-0.9 [facility] Comment on above: Result Comment: Perf ormed at: BN - [facility] [address] [id number] Director: Mignon Taylor MD, Phone: [phone] Performed By: #### L 1221.4379 ####[facility] [address] [place], [place], [id number] Basic Metabolic Profile (BMP )on 04-09-2025 BUN/CRE 21.8 RATIO High 10-20 [facility] Comment on above: Performed By: #### L 500.2500 ####[facility] [address] [place], [address] Calcium [Mass/Vol] 8.5 mg/dL Normal 7.6-11.0 [facility] Comment on above: Performed By: #### L 500.2500 ####[facility] [address] [place], [address] Chloride [Moles/Vol] 104 mmol/L Normal 98-108 [facility] Comment on above: Performed By: #### L 500.2500 ####[facility] [address] [place], [address] CO2 [Moles/Vol] 21.6 mmol/L Normal 21.0-32.0 [facility] Comment on above: Performed By: #### L 500.2500 ####[facility] [address] [place], [address] Creatinine [Mass/Vol] 3.42 mg/dL High 0.70-1.20 [facility] Comment on above: Performed By: #### L 500.2500 ####[facility] [address] [place], [address] ECRCL 15.55 ml/min Low 50-250 [facility] Comment on above: Performed By: #### L 500.2500 ####[facility] [address] [place], [address] GAP 15 Normal 5-15 [facility] Comment on above: Performed By: #### L 500.2500 ####[facility] [address] [place], [address] GFR/1.73 sq M.predicted among non-blacks MDRD (S/P/Bld) [Vol rate/Area] 17 mL/min/{1.73_m2} Low >60 [facility] Comment on above: Result Comment: mL/m in/1.73m2 CKD-EPI Creatinine Equation (2020) Performed By: #### L 500.2500 ####[facility] [address] [place], [address] Glucose [Mass/Vol] 146 mg/dL High 70-99 [facility] Comment on above: Performed By: #### L 500.2500 ####[facility] [address] [place], [address] Potassium [Moles/Vol] 3.4 mmol/L Normal 3.3-5.1 [facility] Comment on above: Performed By: #### L 500.2500 ####[facility] [address] [place], [address] Sodium [Moles/Vol] 140 mmol/L Normal 133-145 [facility] Comment on above: Performed By: #### L 500.2500 ####[facility] [address] [place], [address] Urea nitrogen [Mass/Vol] 74 mg/dL High 4-19 [facility] Comment on above: Performed By: #### L 500.2500 ####[facility] [address] [place], [address] Bedside Glucoseon 04-09-2025 FINGERSTICK GLU 423 mg/dL High 74-106 [facility] Comment on above: Result Comment: ADITI GEMENT OF PATIENT CARE PER NURSING PROTOCOL Performed By: #### L 501.080 ####[facility] [address] [place], [address] FINGERSTICK GLU 217 mg/dL High 74-106 [facility] Comment on above: Result Comment: ADITI GEMENT OF PATIENT CARE PER NURSING PROTOCOL Performed By: #### L 501.080 ####[facility] [address] [place], [address] FINGERSTICK GLU 146 mg/dL High 74-106 [facility] Comment on above: Result Comment: ADITI GEMENT OF PATIENT CARE PER NURSING PROTOCOL Performed By: #### L 501.080 ####[facility] [address] [place], [address] FINGERSTICK GLU 141 mg/dL High 74-106 [facility] Comment on above: Result Comment: ADITI GEMENT OF PATIENT CARE PER NURSING PROTOCOL Performed By: #### L 501.080 ####[facility] [address] [place], [address] FINGERSTICK GLU 443 mg/dL High 74-106 [facility] Comment on above: Result Comment: ADITI GEMENT OF PATIENT CARE PER NURSING PROTOCOL Performed By: #### L 501.080 ####[facility] [address] [place], [address] FINGERSTICK GLU 312 mg/dL High 74-106 [facility] Comment on above: Result Comment: ADITI GEMENT OF PATIENT CARE PER NURSING PROTOCOL Performed By: #### L 501.080 ####[facility] [address] [place], [address] FINGERSTICK GLU 475 mg/dL Invalid Interpretation Code 74-106 [facility] Comment on above: Result Comment: ADITI GEMENT OF PATIENT CARE PER NURSING PROTOCOL Performed By: #### L 501.080 ####[facility] [address] [place], [address] CBC W/Diff, Automatedon 06-0 9-2024 Absolute Lymph 1.84 X10 3/uL Normal 0.83-4.51 [facility] Comment on above: Performed By: #### L 100.0100 ####[facility] [address] [place], [address] Absolute Neut 10.1 X10 3/uL High 2.0-7.7 [facility] Comment on above: Performed By: #### L 100.0100 ####[facility] [address] [place], [address] Basophils/100 WBC (Bld) 0.1 % Normal 0-1 [facility] Comment on above: Performed By: #### L 100.0100 ####[facility] [address] [place], [address] Eosinophils/100 WBC (Bld) 0.1 % Normal 0-5 [facility] Comment on above: Performed By: #### L 100.0100 ####[facility] [address] [place], [address] Erythrocyte distribution width (RBC) [Ratio] 14.0 % Normal 11.6-14.6 [facility] Comment on above: Performed By: #### L 100.0100 ####[facility] [address] [place], [address] Hematocrit (Bld) [Volume fraction] 25.5 % Low 40-54 [facility] Comment on above: Performed By: #### L 100.0100 ####[facility] [address] [place], [address] Hemoglobin (Bld) [Mass/Vol] 8.7 g/dL Low 13.0-16.5 [facility] Comment on above: Performed By: #### L 100.0100 ####[facility] [address] [place], [address] IG% 0.700 Normal 0.0-0.9 [facility] Comment on above: Result Comment: IG% - Immature Granulocytes (promyelocytes, myelocytes andmetamyelocytes) > 1% indicates that a LEFT SHIFT is Present. Performed By: #### L 100.0100 ####[facility] [address] [place], [address] Lymphocytes/100 WBC (Bld) 14.1 % Low 19-41 [facility] Comment on above: Performed By: #### L 100.0100 ####[facility] [address] [place], [address] MCH (RBC) [Entitic mass] 30.2 pg Normal 27.0-32.0 [facility] Comment on above: Performed By: #### L 100.0100 ####[facility] [address] [place], [address] MCHC (RBC) [Mass/Vol] 34.1 g/dL Normal 32-36 [facility] Comment on above: Performed By: #### L 100.0100 ####[facility] [address] [place], [address] MCV (RBC) [Entitic vol] 88.5 fL Normal 80-94 [facility] Comment on above: Performed By: #### L 100.0100 ####[facility] [address] [place], [address] Monocytes/100 WBC (Bld) 7.4 % Normal 0-10 [facility] Comment on above: Performed By: #### L 100.0100 ####[facility] [address] [place], [address] Neutrophils/100 WBC (Bld) 77.6 % High 47-70 [facility] Comment on above: Performed By: #### L 100.0100 ####[facility] [address] [place], [address] Nucleated RBC (Bld) [#/Vol] 0 10*3/uL Normal 0-5 [facility] Comment on above: Performed By: #### L 100.0100 ####[facility] [address] [place], [address] Platelet mean volume (Bld) [Entitic vol] 12.0 fL Normal 6.2-12.0 [facility] Comment on above: Performed By: #### L 100.0100 ####[facility] [address] [place], [address] Platelets (Bld) [#/Vol] 191 10*3/uL Normal 150-450 [facility] Comment on above: Performed By: #### L 100.0100 ####[facility] [address] [place], [address] RBC (Bld) [#/Vol] 2.88 10*6/uL Low 4.6-6.2 [facility] Comment on above: Performed By: #### L 100.0100 ####[facility] [address] [place], [address] RDW SD 45.6 fl High 35.1-43.9 [facility] Comment on above: Performed By: #### L 100.0100 ####[facility] [address] [place], [address] WBC (Bld) [#/Vol] 13.0 10*3/uL High 4.4-11.0 [facility] Comment on above: Performed By: #### L 100.0100 ####[facility] [address] [place], [address] Electrocardiogram reportOrde red By: Barbie Martin on 04-09-2025 EKG study [facility] [address] [place] [address] 12 Lead EKG 04/04/252111 MR#: [id number] Acct: [id number] Name: ENOC ARMANDO Rep #:[id number] : 1945 79 From: Barbie black MD Attending Dr: Dr. Grace Arnold MD Status: ADM IN Ordering Dr: Grace Arnold MD Date: 04/04/25 Location: [facility] Sex: M C Admitted: 04/03/25 Test Reason [...] UNCONFIRMED Confirmed by MINERVA MARTIN MD ([id number]), script editor BLANCO BOCANEGRA ([id number]) on04/09/2025 7:17:16 AM Referred By: Confirmed By: MINERVA MARTIN MD 04/09/25716 Date _ Barbie Martin MD CC: Dr. Ryley Jeter MD; Dr. Grace Arnold MD ~ Signed [facility] Work Phone: EKG study [facility] Cardiovascular Services [address] [place] [address] 12 Lead EKG 04/04/252111 MR#: [id number] Acct: [id number] Name: ENOC ARMANDO Rep #:[id number] : 1945 79 From: Barbie black MD Attending Dr: Dr. Grace Arnold MD Status: ADM IN Ordering Dr: Grace Arnold MD Date: 04/04/25 Location: [facility] Sex: M C Admitted: 04/03/25 Test Reason [...] UNCONFIRMED Confirmed by MINERVA MARTIN MD ([id number]), script editor BLANCO BOCANEGRA ([id number]) on04/09/2025 7:17:37 AM Referred By: Confirmed By: MINERVA MARTIN MD 04/09/25716 Date _ Barbie Martin MD CC: Dr. Ryley Jeter MD; Dr. Grace Arnold MD ~ Signed [facility] Work Phone: [phone] EKG study [facility] Cardi[facility] Services [address] [place] [address] 12 Lead EKG 04/04/25 2109 MR#: [id number] Acct: [id number] Name: ENOC ARMANDO Rep #:[id number] : 1945 79 From: Barbie black MD Attending Dr: Dr. Grace Arnold MD Status: ADM IN Ordering Dr: Grace Arnold MD Date: 04/04/25 Location: [facility] Sex: M C Admitted: 04/03/25 Test Reason [...] available Confirmed by VERONICA URIBE, MINERVA ([id number]), script editor BLANCO BOCANEGRA ([id number]) on04/09/2025 7:17:54 AM Referred By: Confirmed By: MINERVA MARTIN MD 04/09/25 0717 Date _ Barbie Martin MD CC: Dr. Ryley Jeter MD; Dr. Grace Arnold MD ~ Signed [facility] Work Phone: [phone] EKG study [facility] [address] [place] [address] 12 Lead EKG 04/03/25 0005 MR#: [id number] Acct: [id number] Name: ARMANDOENOC E Rep #:[id number] : 1945 79 From: Barbie black MD [...] Abnormal ECG Confirmed by VERONICA URIBE, MINERVA ([id number]), script editor BLANCO BOCANEGRA ([id number]) on04/09/2025 7:03:07 AM Referred By: Confirmed By: MINERVA MARTIN MD 04/09/25702 Date _ Barbie Martin MD CC: Dr. Ryley Jeter MD; Dr. Jose Moore MD; Dr. John Brandon DO ~ Signed [facility] Work Phone: EKG study [facility] Services [address] [place] [address] 12 Lead EKG 04/05/25 1204 MR#: [id number] Acct: [id number] Name: ENOC ARMANDO Rep #:[id number] : 1945 79 From: Barbie black MD [...] UNCONFIRMED Confirmed by VERONICA URIBE, MINERVA ([id number]), script editor BLANCO BOCANEGRA ([id number]) on04/09/2025 6:57:50 AM Referred By: FLORENTINO Confirmed By: MINERVA MARTIN MD 04/09/2557 Date _ Barbie Martin MD CC: Dr. Ryley Jeter MD; Dr. Grace Arnold MD; Dr. Jose Moore MD ~ Signed [facility] Work Phone: Gram Stainon 04-09-2025 GS Acceptable Specimen? Yes (<25 Epithelial cells per/lpf) Gram Stain 2+ Yeast Like Organisms 2+ Gram positive cocci 1+ Gram positive rods Normal [facility] Comment on above: Performed By: #### M 100.2000, M100.2400 ####[facility] [address] [place], [place], [address] Stool Occult Blood iFOBon STOB Positive Normal [facility] Comment on above: Performed By: #### M 100.7900 ####[facility] [address] [place], [address] Stool gastrointestinal hemog lobin detection by immunologic methodOrdered By: Jose Moore on 04-09-2025 Lower GI hemoglobin IA Ql (Stl) Positive Abnormal [facility] BRCon 04-08-2025 RC Normal Neg [facility] Comment on above: Result Comment: [id number] AP RC TRANSFUSED 04/08/25 1032 Performed By: #### B , BR ####[facility] [address] [facility] [place], [address] Basic Metabolic Profile (BMP )on 04-08-2025 BUN/CRE 20.8 RATIO High 10-20 [facility] Comment on above: Performed By: #### L 500.2500 ####[facility] [address] [place], [address] Calcium [Mass/Vol] 8.5 mg/dL Normal 7.6-11.0 [facility] Comment on above: Performed By: #### L 500.2500 ####[facility] [address] [place], [address] Chloride [Moles/Vol] 100 mmol/L Normal 98-108 [facility] Comment on above: Performed By: #### L 500.2500 ####[facility] [address] [place], [address] CO2 [Moles/Vol] 20.3 mmol/L Low 21.0-32.0 [facility] Comment on above: Performed By: #### L 500.2500 ####[facility] [address] [place], [address] Creatinine [Mass/Vol] 2.97 mg/dL High 0.70-1.20 [facility] Comment on above: Performed By: #### L 500.2500 ####[facility] [address] [place], [address] ECRCL 16.83 ml/min Low 50-250 [facility] Comment on above: Performed By: #### L 500.2500 ####[facility] [address] [place], [address] GAP 16 High 5-15 [facility] Comment on above: Performed By: #### L 500.2500 ####[facility] [address] [place], [address] GFR/1.73 sq M.predicted among non-blacks MDRD (S/P/Bld) [Vol rate/Area] 20 mL/min/{1.73_m2} Low >60 [facility] Comment on above: Result Comment: mL/m in/1.73m2 CKD-EPI Creatinine Equation (2020) Performed By: #### L 500.2500 ####[facility] [address] [place], [address] Glucose [Mass/Vol] 395 mg/dL High 70-99 [facility] Comment on above: Performed By: #### L 500.2500 ####[facility] [address] [place], [address] Potassium [Moles/Vol] 4.3 mmol/L Normal 3.3-5.1 [facility] Comment on above: Performed By: #### L 500.2500 ####[facility] [address] [place], [address] Sodium [Moles/Vol] 136 mmol/L Normal 133-145 [facility] Comment on above: Performed By: #### L 500.2500 ####[facility] [address] [place], [address] Urea nitrogen [Mass/Vol] 62 mg/dL High 4-19 [facility] Comment on above: Performed By: #### L 500.2500 ####[facility] [address] [place], [address] Bedside Glucoseon 04-08-2025 FINGERSTICK GLU 415 mg/dL High 74-106 [facility] Comment on above: Result Comment: ADITI GEMENT OF PATIENT CARE PER NURSING PROTOCOL Performed By: #### L 501.080 ####[facility] [address] [place], [address] FINGERSTICK GLU 420 mg/dL High 74-106 [facility] Comment on above: Result Comment: ADITI GEMENT OF PATIENT CARE PER NURSING PROTOCOL Performed By: #### L 501.080 ####[facility] [address] [place], [address] FINGERSTICK GLU 361 mg/dL High 74-106 [facility] Comment on above: Result Comment: ADITI ESCOBEDO OF PATIENT CARE PER NURSING PROTOCOL Performed By: #### L 501.080 ####[facility] [address] [place], [address] CBC W/Diff, Automatedon 06-0 8-2025 Absolute Lymph 0.63 X10 3/uL Low 0.83-4.51 [facility] Comment on above: Performed By: #### L 100.0100 ####[facility] [address] [place], [address] Absolute Neut 7.6 X10 3/uL Normal 2.0-7.7 [facility] Comment on above: Performed By: #### L 100.0100 ####[facility] [address] [place], [address] Basophils/100 WBC (Bld) 0.0 % Normal 0-1 [facility] Comment on above: Performed By: #### L 100.0100 ####[facility] [address] [place], [address] Eosinophils/100 WBC (Bld) 0.0 % Normal 0-5 [facility] Comment on above: Performed By: #### L 100.0100 ####[facility] [address] [place], [address] Erythrocyte distribution width (RBC) [Ratio] 13.5 % Normal 11.6-14.6 [facility] Comment on above: Performed By: #### L 100.0100 ####[facility] [address] [place], [address] Hematocrit (Bld) [Volume fraction] 21.5 % Low 40-54 [facility] Comment on above: Performed By: #### L 100.0100 ####[facility] [address] [place], [address] Hemoglobin (Bld) [Mass/Vol] 6.9 g/dL Low 13.0-16.5 [facility] Comment on above: Performed By: #### L 100.0100 ####[facility] [address] [place], [address] IG% 0.500 Normal 0.0-0.9 [facility] Comment on above: Result Comment: IG% - Immature Granulocytes (promyelocytes, myelocytes andmetamyelocytes) > 1% indicates that a LEFT SHIFT is Present. Performed By: #### L 100.0100 ####[facility] [address] [place], [address] Lymphocytes/100 WBC (Bld) 7.3 % Low 19-41 [facility] Comment on above: Performed By: #### L 100.0100 ####[facility] [address] [place], [address] MCH (RBC) [Entitic mass] 29.5 pg Normal 27.0-32.0 [facility] Comment on above: Performed By: #### L 100.0100 ####[facility] [address] [place], [address] MCHC (RBC) [Mass/Vol] 32.1 g/dL Normal 32-36 [facility] Comment on above: Performed By: #### L 100.0100 ####[facility] [address] [place], [address] MCV (RBC) [Entitic vol] 91.9 fL Normal 80-94 [facility] Comment on above: Performed By: #### L 100.0100 ####[facility] [address] [place], [address] Monocytes/100 WBC (Bld) 4.2 % Normal 0-10 [facility] Comment on above: Performed By: #### L 100.0100 ####[facility] [address] [place], [address] Neutrophils/100 WBC (Bld) 88.0 % High 47-70 [facility] Comment on above: Performed By: #### L 100.0100 ####[facility] [address] [place], [address] Nucleated RBC (Bld) [#/Vol] 0 10*3/uL Normal 0-5 [facility] Comment on above: Performed By: #### L 100.0100 ####[facility] [address] [place], [address] Platelet mean volume (Bld) [Entitic vol] 12.5 fL High 6.2-12.0 [facility] Comment on above: Performed By: #### L 100.0100 ####[facility] [address] [place], [address] Platelets (Bld) [#/Vol] 176 10*3/uL Normal 150-450 [facility] Comment on above: Performed By: #### L 100.0100 ####[facility] [address] [place], [address] RBC (Bld) [#/Vol] 2.34 10*6/uL Low 4.6-6.2 [facility] Comment on above: Performed By: #### L 100.0100 ####[facility] [address] [place], [address] RDW SD 44.2 fl High 35.1-43.9 [facility] Comment on above: Performed By: #### L 100.0100 ####[facility] [address] [place], [address] WBC (Bld) [#/Vol] 8.6 10*3/uL Normal 4.4-11.0 [facility] Comment on above: Performed By: #### L 100.0100 ####[facility] [address] [place], [address] Culture, Blood (WB)on 2024 CUB No growth in 5 days. Normal [facility] Comment on above: Performed By: #### L 503.6005, M200.1000 ####[facility] [address] [place], [address] Glucoseon 04-08-2025 Glucose [Mass/Vol] 528 mg/dL Invalid Interpretation Code 70-99 [facility] Comment on above: Result Comment: Crit ical Result(s) Called at 2220: by:??NBURNS TO EAFFOLTERResults read back by same. Performed By: #### L 501.0100 ####[facility] [address] [place], [address] Respiratory Cultureon 2024 RESPC Mixed normal respiratory kyler. No Streptococcus pneumoniae, beta-hemolytic Streptococcus or Staphylococcus aureus isolated. [facility] Comment on above: Performed By: #### M 100.2000, M100.2400 ####[facility] [address] [place], [address] Type AND Screenon 04-08-2025 ABO and Rh group Nom (Bld) Blood group A Rh(D) positive Normal [facility] Comment on above: Order Comment: CMV N EG? NNumber of units to transfuse: 1Reason for Ordering Blood: AcuteAre the blood/blood products to be transfused? YIs the patient having/had surgery? Nany Hazel Performed By: #### B TS, BRC ####[facility] [address] [place], [address] Ab SCREEN GEL Negative [facility] Comment on above: Order Comment: CMV N EG? NNumber of units to transfuse: 1Reason for Ordering Blood: AcuteAre the blood/blood products to be transfused? YIs the patient having/had surgery? Nany Hazel Performed By: #### B ADILIA GLORIA ####[facility] [address] [place], [address] Basic Metabolic Profile (BMP )on 04-07-2025 BUN/CRE 22.1 RATIO High 10-20 [facility] Comment on above: Performed By: #### L 500.2500 ####[facility] [address] [place], [address] Calcium [Mass/Vol] 8.2 mg/dL Normal 7.6-11.0 [facility] Comment on above: Performed By: #### L 500.2500 ####[facility] [address] [place], [address] Chloride [Moles/Vol] 99 mmol/L Normal 98-108 [facility] Comment on above: Performed By: #### L 500.2500 ####[facility] [address] [place], [address] CO2 [Moles/Vol] 21.3 mmol/L Normal 21.0-32.0 [facility] Comment on above: Performed By: #### L 500.2500 ####[facility] [address] [place], [address] Creatinine [Mass/Vol] 3.61 mg/dL High 0.70-1.20 [facility] Comment on above: Performed By: #### L 500.2500 ####[facility] [address] [place], [address] ECRCL 14.50 ml/min Low 50-250 [facility] Comment on above: Performed By: #### L 500.2500 ####[facility] [address] [place], [address] GAP 16 High 5-15 [facility] Comment on above: Performed By: #### L 500.2500 ####[facility] [address] [place], [address] GFR/1.73 sq M.predicted among non-blacks MDRD (S/P/Bld) [Vol rate/Area] 16 mL/min/{1.73_m2} Low >60 [facility] Comment on above: Result Comment: mL/m in/1.73m2 CKD-EPI Creatinine Equation (2020) Performed By: #### L 500.2500 ####[facility] [address] [place], [address] Glucose [Mass/Vol] 423 mg/dL High 70-99 [facility] Comment on above: Performed By: #### L 500.2500 ####[facility] [address] [place], [address] Potassium [Moles/Vol] 4.3 mmol/L Normal 3.3-5.1 [facility] Comment on above: Performed By: #### L 500.2500 ####[facility] [address] [place], [address] Sodium [Moles/Vol] 137 mmol/L Normal 133-145 [facility] Comment on above: Performed By: #### L 500.2500 ####[facility] [address] [place], [address] Urea nitrogen [Mass/Vol] 80 mg/dL High 4-19 [facility] Comment on above: Performed By: #### L 500.2500 ####[facility] [address] [place], [address] Bedside Glucoseon 04-07-2025 FINGERSTICK GLU 402 mg/dL High 74-106 [facility] Comment on above: Result Comment: ADITI ESCOBEDO OF PATIENT CARE PER NURSING PROTOCOL Performed By: #### L 501.080 ####[facility] [address] [place], [address] FINGERSTICK GLU 330 mg/dL High 74-106 [facility] Comment on above: Result Comment: ADITI GEMENT OF PATIENT CARE PER NURSING PROTOCOL Performed By: #### L 501.080 ####[facility] [address] [place], [address] FINGERSTICK GLU 333 mg/dL High 74-106 [facility] Comment on above: Result Comment: ADITI GEMENT OF PATIENT CARE PER NURSING PROTOCOL Performed By: #### L 501.080 ####[facility] [address] [place], [address] FINGERSTICK GLU 392 mg/dL High -106 [facility] Comment on above: Result Comment: ADITI GEMENT OF PATIENT CARE PER NURSING PROTOCOL Performed By: #### L 501.080 ####[facility] [address] [place], [address] FINGERSTICK GLU 280 mg/dL High 74-106 [facility] Comment on above: Result Comment: ADITI GEMENT OF PATIENT CARE PER NURSING PROTOCOL Performed By: #### L 501.080 ####[facility] [address] [place], [address] CBC W/Diff, Automatedon 06-0 7-2024 Absolute Lymph 1.30 X10 3/uL Normal 0.83-4.51 [facility] Comment on above: Performed By: #### L 100.0100 ####[facility] [address] [place], [address] Absolute Neut 8.2 X10 3/uL High 2.0-7.7 [facility] Comment on above: Performed By: #### L 100.0100 ####[facility] [address] [place], [address] Basophils/100 WBC (Bld) 0.0 % Normal 0-1 [facility] Comment on above: Performed By: #### L 100.0100 ####[facility] [address] [place], [address] Eosinophils/100 WBC (Bld) 0.1 % Normal 0-5 [facility] Comment on above: Performed By: #### L 100.0100 ####[facility] [address] [place], [address] Erythrocyte distribution width (RBC) [Ratio] 13.7 % Normal 11.6-14.6 [facility] Comment on above: Performed By: #### L 100.0100 ####[facility] [address] [place], [address] Hematocrit (Bld) [Volume fraction] 23.1 % Low 40-54 [facility] Comment on above: Performed By: #### L 100.0100 ####[facility] [address] [place], [address] Hemoglobin (Bld) [Mass/Vol] 7.7 g/dL Low 13.0-16.5 [facility] Comment on above: Performed By: #### L 100.0100 ####[facility] [address] [place], [address] IG% 0.300 Normal 0.0-0.9 [facility] Comment on above: Result Comment: IG% - Immature Granulocytes (promyelocytes, myelocytes andmetamyelocytes) > 1% indicates that a LEFT SHIFT is Present. Performed By: #### L 100.0100 ####[facility] [address] [place], [address] Lymphocytes/100 WBC (Bld) 12.6 % Low 19-41 [facility] Comment on above: Performed By: #### L 100.0100 ####[facility] [address] [place], [address] MCH (RBC) [Entitic mass] 30.8 pg Normal 27.0-32.0 [facility] Comment on above: Performed By: #### L 100.0100 ####[facility] [address] [place], [address] MCHC (RBC) [Mass/Vol] 33.3 g/dL Normal 32-36 [facility] Comment on above: Performed By: #### L 100.0100 ####[facility] [address] [place], [address] MCV (RBC) [Entitic vol] 92.4 fL Normal 80-94 [facility] Comment on above: Performed By: #### L 100.0100 ####[facility] [address] [place], [address] Monocytes/100 WBC (Bld) 8.0 % Normal 0-10 [facility] Comment on above: Performed By: #### L 100.0100 ####[facility] [address] [place], [address] Neutrophils/100 WBC (Bld) 79.0 % High 47-70 [facility] Comment on above: Performed By: #### L 100.0100 ####[facility] [address] [place], [address] Nucleated RBC (Bld) [#/Vol] 0 10*3/uL Normal 0-5 [facility] Comment on above: Performed By: #### L 100.0100 ####[facility] [address] [place], [address] Platelet mean volume (Bld) [Entitic vol] 12.3 fL High 6.2-12.0 [facility] Comment on above: Performed By: #### L 100.0100 ####[facility] [address] [place], [address] Platelets (Bld) [#/Vol] 191 10*3/uL Normal 150-450 [facility] Comment on above: Performed By: #### L 100.0100 ####[facility] [address] [place], [address] RBC (Bld) [#/Vol] 2.50 10*6/uL Low 4.6-6.2 [facility] Comment on above: Performed By: #### L 100.0100 ####[facility] [address] [place], [address] RDW SD 46.1 fl High 35.1-43.9 [facility] Comment on above: Performed By: #### L 100.0100 ####[facility] [address] [place], [address] WBC (Bld) [#/Vol] 10.4 10*3/uL Normal 4.4-11.0 [facility] Comment on above: Performed By: #### L 100.0100 ####[facility] [address] [place], [address] Ferritinon 04-07-2025 Ferritin [Mass/Vol] 69 ng/mL Normal 37-417 [facility] Comment on above: Performed By: #### L 503.6030, L503.6550 ####[facility] [address] [place], [address] Gram stainOrdered By: Dyana White on 04-07-2025 Microscopic observation Gram stain Nom (Unsp spec) [facility] Iron measurement (mass/mass) Ordered By: Jose Moore on 04-07-2025 Iron (Unsp spec) [Mass/Mass] 27 ug/dL Low 65-175 [facility] Iron+Iron Binding Capacityon 04-07-2025 Iron [Mass/Vol] 27 ug/dL Low 65-175 [facility] Comment on above: Performed By: #### L 503.6030, L503.6550 ####[facility] [address] [place], [address] IRON SATURATION 10.0 Normal 9- [facility] Comment on above: Performed By: #### L 503.6030, L503.6550 ####[facility] [address] [place], [address] TIBC 270 ug/dL Normal 250-450 [facility] Comment on above: Performed By: #### L 503.6030, L503.6550 ####[facility] [address] [place], [address] UIBC 243 ug/dL Normal 228-428 [facility] Comment on above: Performed By: #### L 503.6030, L503.6550 ####[facility] [address] [place], [address] Microbial respiratory cultur eOrdered By: Dyana Hwang on 04-07-2025 Microorganism identified Cx Nom (Unsp spec) or Staphylococcus aureus isolated. [facility] No Panel InformationOrdered By: Jose Moore on 04-07-2025 Unsaturated Iron Binding Capacity 243 ug/dL 228-428 [facility] 243 ug/dL 228-428 [facility] Serum or plasma ferritin heriberto surement (mass/volume)Ordered By: Jose Moore on 04-07-2025 Ferritin [Mass/Vol] 69 ng/mL 37-417 [facility] Serum or plasma iron saturat ion measurement (mass fraction)Ordered By: Jose Moore on 04-07-2025 Iron saturation [Mass fraction] 10.0 % 9- [facility] Basic Metabolic Profile (BMP )on 04-06-2025 BUN/CRE 21.8 RATIO High 10-20 [facility] Comment on above: Performed By: #### L 500.2500 ####[facility] [address] [place], [address] Calcium [Mass/Vol] 8.3 mg/dL Normal 7.6-11.0 [facility] Comment on above: Performed By: #### L 500.2500 ####[facility] [address] [place], [address] Chloride [Moles/Vol] 100 mmol/L Normal 98-108 [facility] Comment on above: Performed By: #### L 500.2500 ####[facility] [address] [place], [address] CO2 [Moles/Vol] 21.0 mmol/L Normal 21.0-32.0 [facility] Comment on above: Performed By: #### L 500.2500 ####[facility] [address] [place], [address] Creatinine [Mass/Vol] 4.73 mg/dL High 0.70-1.20 [facility] Comment on above: Performed By: #### L 500.2500 ####[facility] [address] [place], [address] ECRCL 11.24 ml/min Low 50-250 [facility] Comment on above: Performed By: #### L 500.2500 ####[facility] [address] [place], [address] GAP 18 High 5-15 [facility] Comment on above: Performed By: #### L 500.2500 ####[facility] [address] [place], [address] GFR/1.73 sq M.predicted among non-blacks MDRD (S/P/Bld) [Vol rate/Area] 12 mL/min/{1.73_m2} Low >60 [facility] Comment on above: Result Comment: mL/m in/1.73m2 CKD-EPI Creatinine Equation (2020) Performed By: #### L 500.2500 ####[facility] [address] [place], [address] Glucose [Mass/Vol] 233 mg/dL High 70-99 [facility] Comment on above: Performed By: #### L 500.2500 ####[facility] [address] [place], [address] Potassium [Moles/Vol] 4.2 mmol/L Normal 3.3-5.1 [facility] Comment on above: Performed By: #### L 500.2500 ####[facility] [address] [place], [address] Sodium [Moles/Vol] 139 mmol/L Normal 133-145 [facility] Comment on above: Performed By: #### L 500.2500 ####[facility] [address] [place], [address] Urea nitrogen [Mass/Vol] 103 mg/dL Invalid Interpretation Code 4-19 [facility] Comment on above: Result Comment: Crit ical Result(s) Called at: by: 04/06/2025-09:27 Neal to Andressa Khanna.??Results read back by same. Performed By: #### L 500.2500 ####[facility] [address] [place], [address] Bedside Glucoseon 04-06-2025 FINGERSTICK GLU 269 mg/dL High 74-106 [facility] Comment on above: Result Comment: ADITI GEMENT OF PATIENT CARE PER NURSING PROTOCOL Performed By: #### L 501.080 ####[facility] [address] [place], [address] FINGERSTICK GLU 225 mg/dL High 74-106 [facility] Comment on above: Result Comment: ADITI GEMENT OF PATIENT CARE PER NURSING PROTOCOL Performed By: #### L 501.080 ####[facility] [address] [place], [address] FINGERSTICK GLU 281 mg/dL High 74-106 [facility] Comment on above: Result Comment: ADITI GEMENT OF PATIENT CARE PER NURSING PROTOCOL Performed By: #### L 501.080 ####[facility] [address] [place], [address] CBC W/Diff, Automatedon 06-0 6-2024 Absolute Lymph 1.34 X10 3/uL Normal 0.83-4.51 [facility] Comment on above: Performed By: #### L 100.0100 ####[facility] [address] [place], [address] Absolute Neut 12.3 X10 3/uL High 2.0-7.7 [facility] Comment on above: Performed By: #### L 100.0100 ####[facility] [address] [place], [address] Basophils/100 WBC (Bld) 0.1 % Normal 0-1 [facility] Comment on above: Performed By: #### L 100.0100 ####[facility] [address] [place], [address] Eosinophils/100 WBC (Bld) 0.0 % Normal 0-5 [facility] Comment on above: Performed By: #### L 100.0100 ####[facility] [address] [place], [address] Erythrocyte distribution width (RBC) [Ratio] 13.8 % Normal 11.6-14.6 [facility] Comment on above: Performed By: #### L 100.0100 ####[facility] [address] [place], [address] Hematocrit (Bld) [Volume fraction] 23.6 % Low 40-54 [facility] Comment on above: Performed By: #### L 100.0100 ####[facility] [address] [place], [address] Hemoglobin (Bld) [Mass/Vol] 7.9 g/dL Low 13.0-16.5 [facility] Comment on above: Performed By: #### L 100.0100 ####[facility] [address] [place], [address] IG% 0.500 Normal 0.0-0.9 [facility] Comment on above: Result Comment: IG% - Immature Granulocytes (promyelocytes, myelocytes andmetamyelocytes) > 1% indicates that a LEFT SHIFT is Present. Performed By: #### L 100.0100 ####[facility] [address] [place], [address] Lymphocytes/100 WBC (Bld) 9.1 % Low 19-41 [facility] Comment on above: Performed By: #### L 100.0100 ####[facility] [address] [place], [address] MCH (RBC) [Entitic mass] 30.7 pg Normal 27.0-32.0 [facility] Comment on above: Performed By: #### L 100.0100 ####[facility] [address] [place], [address] MCHC (RBC) [Mass/Vol] 33.5 g/dL Normal 32-36 [facility] Comment on above: Performed By: #### L 100.0100 ####[facility] [address] [place], [address] MCV (RBC) [Entitic vol] 91.8 fL Normal 80-94 [facility] Comment on above: Performed By: #### L 100.0100 ####[facility] [address] [place], [address] Monocytes/100 WBC (Bld) 7.0 % Normal 0-10 [facility] Comment on above: Performed By: #### L 100.0100 ####[facility] [address] [place], [address] Neutrophils/100 WBC (Bld) 83.3 % High 47-70 [facility] Comment on above: Performed By: #### L 100.0100 ####[facility] [address] [place], [address] Nucleated RBC (Bld) [#/Vol] 0 10*3/uL Normal 0-5 [facility] Comment on above: Performed By: #### L 100.0100 ####[facility] [address] [place], [address] Platelet mean volume (Bld) [Entitic vol] 11.9 fL Normal 6.2-12.0 [facility] Comment on above: Performed By: #### L 100.0100 ####[facility] [address] [place], [address] Platelets (Bld) [#/Vol] 222 10*3/uL Normal 150-450 [facility] Comment on above: Performed By: #### L 100.0100 ####[facility] [address] [place], [address] RBC (Bld) [#/Vol] 2.57 10*6/uL Low 4.6-6.2 [facility] Comment on above: Performed By: #### L 100.0100 ####[facility] [address] [place], [address] RDW SD 46.2 fl High 35.1-43.9 [facility] Comment on above: Performed By: #### L 100.0100 ####[facility] [address] [place], [address] WBC (Bld) [#/Vol] 14.8 10*3/uL High 4.4-11.0 [facility] Comment on above: Performed By: #### L 100.0100 ####[facility] [address] [place], [address] Magnesiumon 04-06-2025 Magnesium [Mass/Vol] 2.8 mg/dL High 1.5-2.2 [facility] Comment on above: Performed By: #### L 501.5200, L501.2300 ####[facility] [address] [place], [place], [address] Magnesium measurement (mass/ volume)Ordered By: Barbie Martin on 04-06-2025 Magnesium (Unsp spec) [Mass/Vol] 2.8 mg/dL High 1.5-2.2 [facility] Phosphoruson 04-06-2025 Phosphate [Mass/Vol] 7.1 mg/dL High 2.7-4.5 [facility] Comment on above: Performed By: #### L 501.5200, L501.2300 ####[facility] [address] [place], [place], [address] Serum classic neutrophil cyt oplasmic antibody assay (units/volume)Ordered By: Denisha Thompson on 04-06-2025 Neutrophil cytoplasmic Ab.classic Qn (S) <1:20 titer Neg:<1:20 [facility] Serum glomerular basement me mbrane antibody assay (units/volume)Ordered By: Denisha Thompson on 04-06-2025 Glomerular basement membrane Ab Qn (S) < 0.2 units 0.0-0.9 [facility] Comment on above: Performed at: [address] [id number] Director: Mignon Taylor MD, Phone: [phone] Serum perinuclear neutrophil cytoplasmic antibody titer by immunofluorescenceOrdered By: Denisha Thompson on 04-06-2025 Neutrophil cytoplasmic Ab.perinuclear IF (S) [Titer] <1:20 titer Neg:<1:20 [facility] Comment on above: The presence of posi tive fluorescence exhibiting P-ANCA orC-ANCA patterns alone is not specific for the diagnosis ofWegener's Granulomatosis (WG) or microscopic polyangiitis.Decisions about treatment should not be based solely onANCA IFA results. The [employer] Consensusrecommends follow up testing of positive sera with both ND-3 and MPO-ANCA enzyme immunoassays. As many as 5% serumsamples are positive only by EIA. Ref. AM J Clin Nawgax1365;111:507-513. 12 Lead EKGon 04-05-2025 12 Lead EKG Normal [facility] Basic Metabolic Profile (BMP )on 04-05-2025 BUN/CRE 20.8 RATIO High 10-20 [facility] Comment on above: Performed By: #### L 500.2500 ####[facility] [address] [place], [address] Calcium [Mass/Vol] 8.9 mg/dL Normal 7.6-11.0 [facility] Comment on above: Performed By: #### L 500.2500 ####[facility] [address] [place], [address] Chloride [Moles/Vol] 102 mmol/L Normal 98-108 [facility] Comment on above: Performed By: #### L 500.2500 ####[facility] [address] [place], [address] CO2 [Moles/Vol] 15.6 mmol/L Low 21.0-32.0 [facility] Comment on above: Performed By: #### L 500.2500 ####[facility] [address] [place], [address] Creatinine [Mass/Vol] 4.77 mg/dL High 0.70-1.20 [facility] Comment on above: Performed By: #### L 500.2500 ####[facility] [address] [place], [address] ECRCL 10.67 ml/min Low 50-250 [facility] Comment on above: Performed By: #### L 500.2500 ####[facility] [address] [place], [address] GAP 19 High 5-15 [facility] Comment on above: Performed By: #### L 500.2500 ####[facility] [address] [place], [address] GFR/1.73 sq M.predicted among non-blacks MDRD (S/P/Bld) [Vol rate/Area] 12 mL/min/{1.73_m2} Low >60 [facility] Comment on above: Result Comment: mL/m in/1.73m2 CKD-EPI Creatinine Equation (2020) Performed By: #### L 500.2500 ####[facility] [address] [place], [address] Glucose [Mass/Vol] 205 mg/dL High 70-99 [facility] Comment on above: Performed By: #### L 500.2500 ####[facility] [address] [place], [address] Potassium [Moles/Vol] 5.7 mmol/L High 3.3-5.1 [facility] Comment on above: Result Comment: Hemo lysis present, Results??could be affected.?? Performed By: #### L 500.2500 ####[facility] [address] [place], [address] Sodium [Moles/Vol] 137 mmol/L Normal 133-145 [facility] Comment on above: Performed By: #### L 500.2500 ####[facility] [address] [place], [address] Urea nitrogen [Mass/Vol] 99 mg/dL High 4-19 [facility] Comment on above: Performed By: #### L 500.2500 ####[facility] [address] [place], [address] BUN/CRE 20.5 RATIO High 10-20 [facility] Comment on above: Performed By: #### L 500.2500 ####[facility] [address] [place], [address] Calcium [Mass/Vol] 8.1 mg/dL Normal 7.6-11.0 [facility] Comment on above: Performed By: #### L 500.2500 ####[facility] [address] [place], [address] Chloride [Moles/Vol] 102 mmol/L Normal 98-108 [facility] Comment on above: Performed By: #### L 500.2500 ####[facility] [address] [place], [address] CO2 [Moles/Vol] 15.8 mmol/L Low 21.0-32.0 [facility] Comment on above: Performed By: #### L 500.2500 ####[facility] [address] [place], [address] Creatinine [Mass/Vol] 4.68 mg/dL High 0.70-1.20 [facility] Comment on above: Performed By: #### L 500.2500 ####[facility] [address] [place], [address] ECRCL 10.87 ml/min Low 50-250 [facility] Comment on above: Performed By: #### L 500.2500 ####[facility] [address] [place], [address] GAP 18 High 5-15 [facility] Comment on above: Performed By: #### L 500.2500 ####[facility] [address] [place], [address] GFR/1.73 sq M.predicted among non-blacks MDRD (S/P/Bld) [Vol rate/Area] 12 mL/min/{1.73_m2} Low >60 [facility] Comment on above: Result Comment: mL/m in/1.73m2 CKD-EPI Creatinine Equation (2020) Performed By: #### L 500.2500 ####[facility] [address] [place], [address] Glucose [Mass/Vol] 223 mg/dL High 70-99 [facility] Comment on above: Performed By: #### L 500.2500 ####[facility] [address] [place], [address] Potassium [Moles/Vol] 6.3 mmol/L Invalid Interpretation Code 3.3-5.1 [facility] Comment on above: Result Comment: Crit ical Result(s) Called to: [facility] ([facility]) by:RONEN??Results read back by same. Performed By: #### L 500.2500 ####[facility] [address] [place], [address] Sodium [Moles/Vol] 136 mmol/L Normal 133-145 [facility] Comment on above: Performed By: #### L 500.2500 ####[facility] [address] [place], [address] Urea nitrogen [Mass/Vol] 96 mg/dL High 4-19 [facility] Comment on above: Performed By: #### L 500.2500 ####[facility] [address] [place], [address] Bedside Glucoseon 04-05-2024 FINGERSTICK GLU 282 mg/dL High 74-106 [facility] Comment on above: Result Comment: ADITI GEMENT OF PATIENT CARE PER NURSING PROTOCOL Performed By: #### L 501.080 ####[facility] [address] [place], [address] FINGERSTICK GLU 165 mg/dL High 74-106 [facility] Comment on above: Result Comment: ADITI GEMENT OF PATIENT CARE PER NURSING PROTOCOL Performed By: #### L 501.080 ####[facility] [address] [place], [address] FINGERSTICK GLU 239 mg/dL High 74-106 [facility] Comment on above: Result Comment: ADITI GEMENT OF PATIENT CARE PER NURSING PROTOCOL Performed By: #### L 501.080 ####[facility] [address] [place], [address] FINGERSTICK GLU 226 mg/dL High 74-106 [facility] Comment on above: Result Comment: ADITI GEMENT OF PATIENT CARE PER NURSING PROTOCOL Performed By: #### L 501.080 ####[facility] [address] [place], [address] FINGERSTICK GLU 263 mg/dL High 74-106 [facility] Comment on above: Result Comment: ADITI GEMENT OF PATIENT CARE PER NURSING PROTOCOL Performed By: #### L 501.080 ####[facility] [address] [place], [address] FINGERSTICK GLU 253 mg/dL High 74-106 [facility] Comment on above: Result Comment: ADITI GEMENT OF PATIENT CARE PER NURSING PROTOCOL Performed By: #### L 501.080 ####[facility] [address] [place], [address] Bilirubin Test strip Ql (U)O rdered By: Denisha Thompson on 04-05-2025 Bilirubin Ql (U) 1 mg/dL High Negative [facility] Comment on above: COLOR OF URINE MAY A FFECT DIPSTICK RESULTS. Blood manual differential co mment interpretation (narrative result)Ordered By: Grace Arnold on 04-05-2025 Manual differential comment Mumtaz (Bld) [Interp] SCANNED [facility] CBC W/Diff, Automatedon SMEAR COMMENT SCANNED Normal [facility] Comment on above: Performed By: #### L 100.0100 ####[facility] [address] [place], [address] CXR for Line Placementon CXR for Line Placement Normal [facility] Consultation - Surgicalon Consultation - Surgical Normal [facility] Ketones Test strip Ql (U)Ord ered By: Denisha Thompson on 04-05-2025 Ketones Ql (U) Negative Negative [facility] L499.0042on 04-05-2025 Trop T High Sen 2263 ng/L Invalid Interpretation Code <=22 [facility] Comment on above: Result Comment: Crit ical Result(s) Called at: 0040 by: BJ??Results read back by same. Performed By: #### L 499.0042 ####[facility] [address] [place], [place], [address] L499.0043on 04-05-2025 Trop T High Sen 2425 ng/L Invalid Interpretation Code <=22 [facility] Comment on above: Result Comment: Crit ical Result(s) Called at: 0336 by:??DASIA ALICIA Results read back by same. Performed By: #### L 499.0043 ####[facility] [address] [place], [place], [address] Microscopic analysis of urin e for red blood cells (RBC)Ordered By: Denisha Thompson on 04-05-2025 Microscopic analysis of urine for red blood cells (RBC) > 100 SEEN /hpf 0-5 [facility] Mucus LM Ql (Urine sed)Order ed By: Denisha Thompson on 04-05-2025 Mucus Ql (Urine sed) 0 SEEN /hpf [facility] Nitrite Test strip Ql (U)Ord ered By: Denisha Thompson on 04-05-2025 Nitrite Ql (U) Negative Negative [facility] Operative Reporton Operative Report Normal [facility] Protein Test strip Ql (U)Ord ered By: Denisha Thompson on 04-05-2025 Protein Ql (U) 100 mg/dl High Negative [facility] Squamous epithelial cells de tection in urine sediment by light microscopyOrdered By: Denisha Thompson on 04-05-2025 Epithelial cells.squamous LM Ql (Urine sed) 0 SEEN /hpf 0-5 [facility] Troponin T.cardiac [Mass/vol ume] in Serum or Plasma by High sensitivity methodOrdered By: Breezy Campbell on 04-05-2025 Troponin T.cardiac High sensitivity method [Mass/Vol] 2425 ng/L High <22 [facility] Comment on above: Critical Result(s) C alled at: 0336 by: DASIA MOYA TO ANA ALICIA Results read back by same. Urinalysis, Completeon 04-05 WBC 5-10 SEEN Normal 0-5 [facility] Comment on above: Order Comment: HATTIE TER SPECIMEN Performed By: #### L 400.0001 ####[facility] [address] [place], [address] RBC > 100 SEEN Normal 0-5 [facility] Comment on above: Order Comment: HATTIE TER SPECIMEN Performed By: #### L 400.0001 ####[facility] [address] [place], [address] BACTERIA 0 SEEN Normal None Seen [facility] Comment on above: Order Comment: HATTIE TER SPECIMEN Performed By: #### L 400.0001 ####[facility] [address] [place], [address] EPI,SQUAMOUS 0 SEEN Normal 0-5 [facility] Comment on above: Order Comment: HATTIE TER SPECIMEN Performed By: #### L 400.0001 ####[facility] [address] [place], [address] Mucus Ql (Urine sed) 0 SEEN Normal [facility] Comment on above: Order Comment: HATTIE TER SPECIMEN Performed By: #### L 400.0001 ####[facility] [address] [place], [address] Urine clarityOrdered By: Zelalem Thompson on 04-05-2025 Clarity (U) Sl. Cloudy Clear [facility] Urine color determinationOrd ered By: Denisha Thompson on 04-05-2025 Color (U) Yellow Yellow [facility] Urine glucose detectionOrder ed By: Denisha Thompson on 04-05-2025 Glucose Ql (U) Normal mg/dl Normal [facility] Urine leukocyte esterase det ection by dipstickOrdered By: Denisha Thompson on 04-05-2025 Leukocyte esterase Test strip Ql (U) 500 /ul High Negative [facility] Urine pHOrdered By: Almita Thompson on 04-05-2025 pH (U) 5.0 [pH] 5.0 - 8.0 [facility] Urine sediment bacteria coun t by microscopy (number/high power field)Ordered By: Denisha Thompson on 04-05-2025 Bacteria LM.HPF (Urine sed) [#/Area] 0 /[HPF] None Seen [facility] Urine specific gravity measu rementOrdered By: Denisha Thompson on 04-05-2025 Specific gravity (U) [Rel density] 1.020 1.002-1.030 [facility] Urine urobilinogen measureme ntOrdered By: Denisha Thompson on 04-05-2025 Urobilinogen Ql (U) Normal mg/dl Normal [facility] White blood cell countOrdere d By: Denisha Thompson on 04-05-2025 White blood cell count 5-10 SEEN /hpf 0-5 [facility] 12 Lead EKGon 04-04-2025 12 Lead EKG Normal [facility] 12 Lead EKG Normal [facility] 12 Lead EKG Normal [facility] Basic Metabolic Profile (BMP )on 04-04-2025 BUN Normal 4-19 [facility] Comment on above: Result Comment: CANC EL PER DEVEROAUX Performed By: #### L 500.2500 ####[facility] [address] [facility] [id number] BUN/CRE Normal 10-20 [facility] Comment on above: Result Comment: CANC EL PER DEVEROAUX Performed By: #### L 500.2500 ####[facility] [address] [place], [place], [id number] Calcium Normal 7.6-11.0 [facility] Comment on above: Result Comment: CANC EL PER DEVEROAUX Performed By: #### L 500.2500 ####[facility] [address] [place], [address] CL Normal 98-108 [facility] Comment on above: Result Comment: CANC EL PER DEVEROAUX Performed By: #### L 500.2500 ####[facility] [address] [place], [address] CO2 Normal 21.0-32.0 [facility] Comment on above: Result Comment: CANC EL PER DEVEROAUX Performed By: #### L 500.2500 ####[facility] [address] [place], [address] CREAT,SERUM Normal 0.70-1.20 [facility] Comment on above: Result Comment: CANC EL PER DEVEROAUX Performed By: #### L 500.2500 ####[facility] [address] [place], [address] eGFR Normal >60 [facility] Comment on above: Result Comment: CANC EL PER DEVEROAUX Performed By: #### L 500.2500 ####[facility] [address] [place], [address] GAP Normal 5-15 [facility] Comment on above: Result Comment: CANC EL PER DEVEROAUX Performed By: #### L 500.2500 ####[facility] [address] [place], [address] GLU Normal 70-99 [facility] Comment on above: Result Comment: CANC EL PER DEVEROAUX Performed By: #### L 500.2500 ####[facility] [address] [place], [address] Potassium Normal 3.3-5.1 [facility] Comment on above: Result Comment: CANC EL PER DEVEROAUX Performed By: #### L 500.2500 ####[facility] [address] [place], [address] Basic Metabolic Profile (BMP) Normal 133-145 [facility] Comment on above: Result Comment: CANC EL DELGADO MAKI Performed By: #### L 500.2500 ####[facility] [address] [place], [address] BUN/CRE 20.5 RATIO High 10-20 [facility] Comment on above: Performed By: #### L 500.2500 ####[facility] [address] [place], [address] Calcium [Mass/Vol] 8.6 mg/dL Normal 7.6-11.0 [facility] Comment on above: Performed By: #### L 500.2500 ####[facility] [address] [place], [address] Chloride [Moles/Vol] 101 mmol/L Normal 98-108 [facility] Comment on above: Performed By: #### L 500.2500 ####[facility] [address] [place], [address] CO2 [Moles/Vol] 17.2 mmol/L Low 21.0-32.0 [facility] Comment on above: Performed By: #### L 500.2500 ####[facility] [address] [place], [address] Creatinine [Mass/Vol] 3.74 mg/dL High 0.70-1.20 [facility] Comment on above: Performed By: #### L 500.2500 ####[facility] [address] [place], [address] ECRCL 13.61 ml/min Low 50-250 [facility] Comment on above: Performed By: #### L 500.2500 ####[facility] [address] [place], [address] GAP 17 High 5-15 [facility] Comment on above: Performed By: #### L 500.2500 ####[facility] [address] [place], [address] GFR/1.73 sq M.predicted among non-blacks MDRD (S/P/Bld) [Vol rate/Area] 16 mL/min/{1.73_m2} Low >60 [facility] Comment on above: Result Comment: mL/m in/1.73m2 CKD-EPI Creatinine Equation (2020) Performed By: #### L 500.2500 ####[facility] [address] [place], [address] Glucose [Mass/Vol] 226 mg/dL High 70-99 [facility] Comment on above: Performed By: #### L 500.2500 ####[facility] [address] [place], [address] Potassium [Moles/Vol] 5.4 mmol/L High 3.3-5.1 [facility] Comment on above: Performed By: #### L 500.2500 ####[facility] [address] [place], [address] Sodium [Moles/Vol] 134 mmol/L Normal 133-145 [facility] Comment on above: Performed By: #### L 500.2500 ####[facility] [address] [place], [address] Urea nitrogen [Mass/Vol] 77 mg/dL High 4-19 [facility] Comment on above: Performed By: #### L 500.2500 ####[facility] [address] [place], [address] BUN/CRE 21.0 RATIO High 10-20 [facility] Comment on above: Performed By: #### L 500.2500 ####[facility] [address] [place], [address] Calcium [Mass/Vol] 8.7 mg/dL Normal 7.6-11.0 [facility] Comment on above: Performed By: #### L 500.2500 ####[facility] [address] [place], [address] Chloride [Moles/Vol] 104 mmol/L Normal 98-108 [facility] Comment on above: Performed By: #### L 500.2500 ####[facility] [address] [place], [address] CO2 [Moles/Vol] 17.5 mmol/L Low 21.0-32.0 [facility] Comment on above: Performed By: #### L 500.2500 ####[facility] [address] [place], [address] Creatinine [Mass/Vol] 3.34 mg/dL High 0.70-1.20 [facility] Comment on above: Performed By: #### L 500.2500 ####[facility] [address] [place], [address] ECRCL 15.24 ml/min Low 50-250 [facility] Comment on above: Performed By: #### L 500.2500 ####[facility] [address] [place], [address] GAP 15 Normal 5-15 [facility] Comment on above: Performed By: #### L 500.2500 ####[facility] [address] [place], [address] GFR/1.73 sq M.predicted among non-blacks MDRD (S/P/Bld) [Vol rate/Area] 18 mL/min/{1.73_m2} Low >60 [facility] Comment on above: Result Comment: mL/m in/1.73m2 CKD-EPI Creatinine Equation (2020) Performed By: #### L 500.2500 ####[facility] [address] [place], [address] Glucose [Mass/Vol] 208 mg/dL High 70-99 [facility] Comment on above: Performed By: #### L 500.2500 ####[facility] [address] [place], [address] Potassium [Moles/Vol] 5.0 mmol/L Normal 3.3-5.1 [facility] Comment on above: Performed By: #### L 500.2500 ####[facility] [address] [place], [address] Sodium [Moles/Vol] 137 mmol/L Normal 133-145 [facility] Comment on above: Performed By: #### L 500.2500 ####[facility] [address] [place], [address] Urea nitrogen [Mass/Vol] 70 mg/dL High 4-19 [facility] Comment on above: Performed By: #### L 500.2500 ####[facility] [address] [place], [address] BUN/CRE 21.1 RATIO High 10-20 [facility] Comment on above: Performed By: #### L 500.2500 ####[facility] [address] [place], [address] Calcium [Mass/Vol] 8.6 mg/dL Normal 7.6-11.0 [facility] Comment on above: Performed By: #### L 500.2500 ####[facility] [address] [place], [address] Chloride [Moles/Vol] 103 mmol/L Normal 98-108 [facility] Comment on above: Performed By: #### L 500.2500 ####[facility] [address] [place], [address] CO2 [Moles/Vol] 17.8 mmol/L Low 21.0-32.0 [facility] Comment on above: Performed By: #### L 500.2500 ####[facility] [address] [place], [address] Creatinine [Mass/Vol] 3.26 mg/dL High 0.70-1.20 [facility] Comment on above: Performed By: #### L 500.2500 ####[facility] [address] [place], [address] ECRCL 15.61 ml/min Low 50-250 [facility] Comment on above: Performed By: #### L 500.2500 ####[facility] [address] [place], [address] GAP 15 Normal 5-15 [facility] Comment on above: Performed By: #### L 500.2500 ####[facility] [address] [place], [address] GFR/1.73 sq M.predicted among non-blacks MDRD (S/P/Bld) [Vol rate/Area] 18 mL/min/{1.73_m2} Low >60 [facility] Comment on above: Result Comment: mL/m in/1.73m2 CKD-EPI Creatinine Equation (2020) Performed By: #### L 500.2500 ####[facility] [address] [place], [address] Glucose [Mass/Vol] 203 mg/dL High 70-99 [facility] Comment on above: Performed By: #### L 500.2500 ####[facility] [address] [place], [address] Potassium [Moles/Vol] 4.6 mmol/L Normal 3.3-5.1 [facility] Comment on above: Performed By: #### L 500.2500 ####[facility] [address] [place], [address] Sodium [Moles/Vol] 136 mmol/L Normal 133-145 [facility] Comment on above: Performed By: #### L 500.2500 ####[facility] [address] [place], [address] Urea nitrogen [Mass/Vol] 69 mg/dL High 4-19 [facility] Comment on above: Performed By: #### L 500.2500 ####[facility] [address] [place], [address] Bedside Glucoseon 04-04-2025 FINGERSTICK GLU 355 mg/dL High 74-106 [facility] Comment on above: Result Comment: ADITI GEMENT OF PATIENT CARE PER NURSING PROTOCOL Performed By: #### L 501.080 ####[facility] [address] [place], [address] FINGERSTICK GLU 307 mg/dL High 74-106 [facility] Comment on above: Result Comment: ADITI GEMENT OF PATIENT CARE PER NURSING PROTOCOL Performed By: #### L 501.080 ####[facility] [address] [place], [address] FINGERSTICK GLU 164 mg/dL High 74-106 [facility] Comment on above: Result Comment: ADITI GEMENT OF PATIENT CARE PER NURSING PROTOCOL Performed By: #### L 501.080 ####[facility] [address] [place], [address] FINGERSTICK GLU 209 mg/dL High 74-106 [facility] Comment on above: Result Comment: ADITI GEMENT OF PATIENT CARE PER NURSING PROTOCOL Performed By: #### L 501.080 ####[facility] [address] [place], [address] FINGERSTICK GLU 178 mg/dL High 74-106 [facility] Comment on above: Result Comment: ADITI GEMENT OF PATIENT CARE PER NURSING PROTOCOL Performed By: #### L 501.080 ####[facility] [address] [place], [address] FINGERSTICK GLU 183 mg/dL High 74-106 [facility] Comment on above: Result Comment: ADITI GEMENT OF PATIENT CARE PER NURSING PROTOCOL Performed By: #### L 501.080 ####[facility] [address] [place], [address] FINGERSTICK GLU 229 mg/dL High 74-106 [facility] Comment on above: Result Comment: ADITI GEMENT OF PATIENT CARE PER NURSING PROTOCOL Performed By: #### L 501.080 ####[facility] [address] [place], [address] FINGERSTICK GLU 174 mg/dL High 74-106 [facility] Comment on above: Result Comment: ADITI GEMENT OF PATIENT CARE PER NURSING PROTOCOL Performed By: #### L 501.080 ####[facility] [address] [place], [address] FINGERSTICK GLU 284 mg/dL High 74-106 [facility] Comment on above: Result Comment: ADITI GEMENT OF PATIENT CARE PER NURSING PROTOCOL Performed By: #### L 501.080 ####[facility] [address] [place], [address] FINGERSTICK GLU 235 mg/dL High [facility]106 [facility] Comment on above: Result Comment: ADITI GEMENT OF PATIENT CARE PER NURSING PROTOCOL Performed By: #### L 501.080 ####[facility] [address] [place], [address] FINGERSTICK GLU 250 mg/dL High -[address] [place] [address] Comment on above: Result Comment: ADITI GEMENT OF PATIENT CARE PER NURSING PROTOCOL Performed By: #### L 501.080 ####[facility] [address] [place], [address] FINGERSTICK GLU 317 mg/dL High [facility]106 [facility] Comment on above: Result Comment: ADITI GEMENT OF PATIENT CARE PER NURSING PROTOCOL Performed By: #### L 501.080 ####[facility] [address] [place], [address] FINGERSTICK GLU 366 mg/dL High 74-106 [facility] Comment on above: Result Comment: ADITI GEMENT OF PATIENT CARE PER NURSING PROTOCOL Performed By: #### L 501.080 ####[facility] [address] [place], [address] FINGERSTICK GLU 261 mg/dL High 74-106 [facility] Comment on above: Result Comment: ADITI GEMENT OF PATIENT CARE PER NURSING PROTOCOL Performed By: #### L 501.080 ####[facility] [address] [place], [address] CBC W/Diff, Automatedon 06-0 4-2024 Absolute Lymph 1.08 X10 3/uL Normal 0.83-4.51 [facility] Comment on above: Performed By: #### L 100.0100 ####[facility] [address] [place], [address] Absolute Neut 19.9 X10 3/uL High 2.0-7.7 [facility] Comment on above: Performed By: #### L 100.0100 ####[facility] [address] [place], [address] Basophils/100 WBC (Bld) 0.1 % Normal 0-1 [facility] Comment on above: Performed By: #### L 100.0100 ####[facility] [address] [place], [address] Eosinophils/100 WBC (Bld) 0.0 % Normal 0-5 [facility] Comment on above: Performed By: #### L 100.0100 ####[facility] [address] [place], [address] Erythrocyte distribution width (RBC) [Ratio] 13.6 % Normal 11.6-14.6 [facility] Comment on above: Performed By: #### L 100.0100 ####[facility] [address] [place], [address] Hematocrit (Bld) [Volume fraction] 22.8 % Low 40-54 [facility] Comment on above: Performed By: #### L 100.0100 ####[facility] [address] [place], [address] Hemoglobin (Bld) [Mass/Vol] 7.4 g/dL Low 13.0-16.5 [facility] Comment on above: Performed By: #### L 100.0100 ####[facility] [address] [place], [address] IG% 0.600 Normal 0.0-0.9 [facility] Comment on above: Result Comment: IG% - Immature Granulocytes (promyelocytes, myelocytes andmetamyelocytes) > 1% indicates that a LEFT SHIFT is Present. Performed By: #### L 100.0100 ####[facility] [address] [place], [address] Lymphocytes/100 WBC (Bld) 4.9 % Low 19-41 [facility] Comment on above: Performed By: #### L 100.0100 ####[facility] [address] [place], [address] MCH (RBC) [Entitic mass] 30.0 pg Normal 27.0-32.0 [facility] Comment on above: Performed By: #### L 100.0100 ####[facility] [address] [place], [address] MCHC (RBC) [Mass/Vol] 32.5 g/dL Normal 32-36 [facility] Comment on above: Performed By: #### L 100.0100 ####[facility] [address] [place], [address] MCV (RBC) [Entitic vol] 92.3 fL Normal 80-94 [facility] Comment on above: Performed By: #### L 100.0100 ####[facility] [address] [place], [address] Monocytes/100 WBC (Bld) 4.0 % Normal 0-10 [facility] Comment on above: Performed By: #### L 100.0100 ####[facility] [address] [place], [address] Neutrophils/100 WBC (Bld) 90.4 % High 47-70 [facility] Comment on above: Performed By: #### L 100.0100 ####[facility] [address] [place], [address] Nucleated RBC (Bld) [#/Vol] 0 10*3/uL Normal 0-5 [facility] Comment on above: Performed By: #### L 100.0100 ####[facility] [address] [place], [address] Platelet mean volume (Bld) [Entitic vol] 11.4 fL Normal 6.2-12.0 [facility] Comment on above: Performed By: #### L 100.0100 ####[facility] [address] [place], [address] Platelets (Bld) [#/Vol] 230 10*3/uL Normal 150-450 [facility] Comment on above: Performed By: #### L 100.0100 ####[facility] [address] [place], [address] RBC (Bld) [#/Vol] 2.47 10*6/uL Low 4.6-6.2 [facility] Comment on above: Performed By: #### L 100.0100 ####[facility] [address] [place], [address] RDW SD 45.9 fl High 35.1-43.9 [facility] Comment on above: Performed By: #### L 100.0100 ####[facility] [address] [place], [address] WBC (Bld) [#/Vol] 22.0 10*3/uL High 4.4-11.0 [facility] Comment on above: Performed By: #### L 100.0100 ####[facility] [address] [place], [address] Consultation - Nephrologyon 04-04-2025 Consultation - Nephrology Normal [facility] Creatinine, Urineon 04-04-20 25 URINE CREAT 138.00 mg/dL Normal 39.00-259.00 [facility] Comment on above: Performed By: #### L 502.0300, L502.0715 ####[facility] [address] [place], [address] Kidney and Bladderon 025 Kidney and Bladder Normal [facility] L501.4021on 04-04-2025 Trop T High Sen 2204 ng/L Invalid Interpretation Code <=22 [facility] Comment on above: Result Comment: Crit ical Result(s) Called at: 2 by: JEANNIE SHARMA Results read back by same. Performed By: #### L 501.4021 ####[facility] [address] [place], [address] Troponin T.cardiac [Mass/vol ume] in Serum or Plasma by High sensitivity methodOrdered By: Breezy Campbell on 04-04-2025 Troponin T.cardiac High sensitivity method [Mass/Vol] 2204 ng/L High <22 [facility] Comment on above: Delta: 58 on 5-0005Critical Result(s) Called at: 2232 by: JEANNIE SHARMA Results read back by same. Troponin T.cardiac High sensitivity method [Mass/Vol] 2263 ng/L High <22 [facility] Comment on above: Critical Result(s) C alled at: 0040 by: JENNIFER SHARMA Results read back by same. Urea Nitrogen, Urineon 04-04 URINE UREA 406 mg/dL Normal NO RANGE EST. [facility] Comment on above: Performed By: #### L 502.0300, L502.0715 ####[facility] [address] [place], [place], [address] Urine Cultureon 04-04-2025 URC Culture exhibits no growth. Normal [facility] Comment on above: Performed By: #### M 100.2200 ####[facility] [address] [place], [place], [address] Urine creatinine measurement (mass/volume)Ordered By: Grace Arnold on 04-04-2025 Creatinine (U) [Mass/Vol] 138.00 mg/dL 39.00-25 9.00 [facility] 12 Lead EKGon 04-03-2025 12 Lead EKG Normal [facility] Absolute lymphocyte countOrd ered By: John Brandon on 04-03-2025 Lymphocytes Auto (Unsp spec) [#/Vol] 2.12 10*3/uL 0.83-4.51 [facility] Absolute neutrophil countOrd ered By: John Brandon on 04-03-2025 Neutrophils (Bld) [#/Vol] 12.0 10*3/uL High 2.0-7.7 [facility] Activated partial thrombopla stin time (aPTT) in platelet poor plasma by coagulation aOrdered By: Grace Arnold on 04-03-2025 aPTT Coag (PPP) [Time] 212.0 s High 24.1-36.2 [facility] Comment on above: CRITICAL VALUE GRIMM Nadeem TO RElizabet OBREGONZO04/03/25 1243 Ness Huang.RESULTS READ BACK BY SAME. Activated partial thrombopla stin time (aPTT) in platelet poor plasma by coagulation aOrdered By: Dyana Hwang on 04-03-2025 aPTT Coag (PPP) [Time] 37.3 s High 24.1-36.2 [facility] Anion gap in Serum or Plasma Ordered By: John Brandon on 04-03-2025 Anion gap [Moles/Vol] 14 mmol/L 5-15 [facility] Assessment of wrist artery p atency prior to arterial punctureOrdered By: Dyana Hwang on 04-03-2025 Arterial patency Wrist artery --pre arterial puncture Positive [facility] Automated lymphocyte count a s percentage of total leukocytesOrdered By: John Brandon on 04-03-2025 Lymphocytes/100 WBC Auto (Unsp spec) 13.5 % Low 19-41 [facility] BUN/creatinine ratioOrdered By: John Brandon on 04-03-2025 Urea nitrogen/Creatinine [Mass ratio] 22.3 mg/mg High 10-20 [facility] Basic Metabolic Profile (BMP )on 04-03-2025 BUN/CRE 21.7 RATIO High - [facility] Comment on above: Performed By: #### L 500.2500 ####[facility] [address] [place], [address] Calcium [Mass/Vol] 8.5 mg/dL Normal 7.6-11.0 [facility] Comment on above: Performed By: #### L 500.2500 ####[facility] [address] [place], [address] Chloride [Moles/Vol] 102 mmol/L Normal 98-108 [facility] Comment on above: Performed By: #### L 500.2500 ####[facility] [address] [place], [address] CO2 [Moles/Vol] 17.3 mmol/L Low 21.0-32.0 [facility] Comment on above: Performed By: #### L 500.2500 ####[facility] [address] [place], [address] Creatinine [Mass/Vol] 3.02 mg/dL High 0.70-1.20 [facility] Comment on above: Performed By: #### L 500.2500 ####[facility] [address] [place], [address] ECRCL 16.69 ml/min Low 50-250 [facility] Comment on above: Performed By: #### L 500.2500 ####[facility] [address] [place], [address] GAP 16 High 5-15 [facility] Comment on above: Performed By: #### L 500.2500 ####[facility] [address] [place], [address] GFR/1.73 sq M.predicted among non-blacks MDRD (S/P/Bld) [Vol rate/Area] 20 mL/min/{1.73_m2} Low >60 [facility] Comment on above: Result Comment: mL/m in/1.73m2 CKD-EPI Creatinine Equation (2020) Performed By: #### L 500.2500 ####[facility] [address] [place], [address] Glucose [Mass/Vol] 275 mg/dL High 70-99 [facility] Comment on above: Performed By: #### L 500.2500 ####[facility] [address] [place], [address] Potassium [Moles/Vol] 4.5 mmol/L Normal 3.3-5.1 [facility] Comment on above: Performed By: #### L 500.2500 ####[facility] [address] [place], [address] Sodium [Moles/Vol] 136 mmol/L Normal 133-145 [facility] Comment on above: Performed By: #### L 500.2500 ####[facility] [address] [place], [address] Urea nitrogen [Mass/Vol] 66 mg/dL High 4-19 [facility] Comment on above: Performed By: #### L 500.2500 ####[facility] [address] [place], [address] BUN/CRE 22.9 RATIO High 10-20 [facility] Comment on above: Performed By: #### L 500.2500 ####[facility] [address] [place], [address] Calcium [Mass/Vol] 9.0 mg/dL Normal 7.6-11.0 [facility] Comment on above: Performed By: #### L 500.2500 ####[facility] [address] [place], [address] Chloride [Moles/Vol] 100 mmol/L Normal 98-108 [facility] Comment on above: Performed By: #### L 500.2500 ####[facility] [address] [place], [address] CO2 [Moles/Vol] 16.9 mmol/L Low 21.0-32.0 [facility] Comment on above: Performed By: #### L 500.2500 ####[facility] [address] [place], [address] Creatinine [Mass/Vol] 2.73 mg/dL High 0.70-1.20 [facility] Comment on above: Performed By: #### L 500.2500 ####[facility] [address] [place], [address] ECRCL 18.46 ml/min Low 50-250 [facility] Comment on above: Performed By: #### L 500.2500 ####[facility] [address] [place], [address] GAP 18 High 5-15 [facility] Comment on above: Performed By: #### L 500.2500 ####[facility] [address] [place], [address] GFR/1.73 sq M.predicted among non-blacks MDRD (S/P/Bld) [Vol rate/Area] 23 mL/min/{1.73_m2} Low >60 [facility] Comment on above: Result Comment: mL/m in/1.73m2 CKD-EPI Creatinine Equation (2020) Performed By: #### L 500.2500 ####[facility] [address] [place], [address] Glucose [Mass/Vol] 407 mg/dL High 70-99 [facility] Comment on above: Performed By: #### L 500.2500 ####[facility] [address] [place], [address] Potassium [Moles/Vol] 4.3 mmol/L Normal 3.3-5.1 [facility] Comment on above: Performed By: #### L 500.2500 ####[facility] [address] [place], [address] Sodium [Moles/Vol] 135 mmol/L Normal 133-145 [facility] Comment on above: Performed By: #### L 500.2500 ####[facility] [address] [place], [address] Urea nitrogen [Mass/Vol] 62 mg/dL High 4-19 [facility] Comment on above: Performed By: #### L 500.2500 ####[facility] [address] [place], [address] BUN/CRE 21.7 RATIO High 10-20 [facility] Comment on above: Performed By: #### L 500.2500 ####[facility] [address] [place], [address] Calcium [Mass/Vol] 8.6 mg/dL Normal 7.6-11.0 [facility] Comment on above: Performed By: #### L 500.2500 ####[facility] [address] [place], [address] Chloride [Moles/Vol] 98 mmol/L Normal 98-108 [facility] Comment on above: Performed By: #### L 500.2500 ####[facility] [address] [place], [address] CO2 [Moles/Vol] 13.6 mmol/L Low 21.0-32.0 [facility] Comment on above: Performed By: #### L 500.2500 ####[facility] [address] [place], [address] Creatinine [Mass/Vol] 2.67 mg/dL High 0.70-1.20 [facility] Comment on above: Performed By: #### L 500.2500 ####[facility] [address] [place], [address] ECRCL 18.87 ml/min Low 50-250 [facility] Comment on above: Performed By: #### L 500.2500 ####[facility] [address] [place], [address] GAP 21 High 5-15 [facility] Comment on above: Performed By: #### L 500.2500 ####[facility] [address] [place], [address] GFR/1.73 sq M.predicted among non-blacks MDRD (S/P/Bld) [Vol rate/Area] 23 mL/min/{1.73_m2} Low >60 [facility] Comment on above: Result Comment: mL/m in/1.73m2 CKD-EPI Creatinine Equation (2020) Performed By: #### L 500.2500 ####[facility] [address] [place], [address] Glucose [Mass/Vol] 638 mg/dL Invalid Interpretation Code 70-99 [facility] Comment on above: Result Comment: Crit ical Result(s) Called JINDERMULE at: 1553 by:COLETTE??Results read back by same. Performed By: #### L 500.2500 ####[facility] [address] [place], [address] Potassium [Moles/Vol] 4.4 mmol/L Normal 3.3-5.1 [facility] Comment on above: Performed By: #### L 500.2500 ####[facility] [address] [place], [address] Sodium [Moles/Vol] 133 mmol/L Normal 133-145 [facility] Comment on above: Performed By: #### L 500.2500 ####[facility] [address] [place], [address] Urea nitrogen [Mass/Vol] 58 mg/dL High 4-19 [facility] Comment on above: Performed By: #### L 500.2500 ####[facility] [address] [place], [address] BUN/CRE 22.3 RATIO High 10-20 [facility] Comment on above: Performed By: #### L 100.0100, L500.2500, L300.8000 ####[facility] [address] [place], [address] Calcium [Mass/Vol] 8.8 mg/dL Normal 7.6-11.0 [facility] Comment on above: Performed By: #### L 100.0100, L500.2500, L300.8000 ####[facility] [address] [place], [address] Chloride [Moles/Vol] 104 mmol/L Normal 98-108 [facility] Comment on above: Performed By: #### L 100.0100, L500.2500, L300.8000 ####[facility] [address] [place], [address] CO2 [Moles/Vol] 20.8 mmol/L Low 21.0-32.0 [facility] Comment on above: Performed By: #### L 100.0100, L500.2500, L300.8000 ####[facility] [address] [place], [address] Creatinine [Mass/Vol] 1.88 mg/dL High 0.70-1.20 [facility] Comment on above: Performed By: #### L 100.0100, L500.2500, L300.8000 ####[facility] [address] [place], [address] ECRCL 28.20 ml/min Low 50-250 [facility] Comment on above: Performed By: #### L 100.0100, L500.2500, L300.8000 ####[facility] [address] [place], [address] GAP 14 Normal 5-15 [facility] Comment on above: Performed By: #### L 100.0100, L500.2500, L300.8000 ####[facility] [address] [place], [address] GFR/1.73 sq M.predicted among non-blacks MDRD (S/P/Bld) [Vol rate/Area] 35 mL/min/{1.73_m2} Low >60 [facility] Comment on above: Result Comment: mL/m in/1.73m2 CKD-EPI Creatinine Equation (2020) Performed By: #### L 100.0100, L500.2500, L300.8000 ####[facility] [address] [place], [address] Glucose [Mass/Vol] 255 mg/dL High 70-99 [facility] Comment on above: Performed By: #### L 100.0100, L500.2500, L300.8000 ####[facility] [address] [place], [address] Potassium [Moles/Vol] 4.4 mmol/L Normal 3.3-5.1 [facility] Comment on above: Performed By: #### L 100.0100, L500.2500, L300.8000 ####[facility] [address] [place], [address] Sodium [Moles/Vol] 139 mmol/L Normal 133-145 [facility] Comment on above: Performed By: #### L 100.0100, L500.2500, L300.8000 ####[facility] [address] [place], [address] Urea nitrogen [Mass/Vol] 42 mg/dL High 4-19 [facility] Comment on above: Performed By: #### L 100.0100, L500.2500, L300.8000 ####[facility] [address] [place], [address] Basophil percentageOrdered B y: John Aleksandr on 04-03-2025 Basophils/100 WBC (Bld) 0.6 % 0-1 [facility] Bedside Glucoseon 04-03-2025 FINGERSTICK GLU 363 mg/dL High 74-[address] [place] [address] Comment on above: Result Comment: ADITI ESCOBEDO OF PATIENT CARE PER NURSING PROTOCOL Performed By: #### L 501.080 ####[facility] [address] [place], [address] FINGERSTICK GLU 454 mg/dL Invalid Interpretation Code [address] [place] [address] Comment on above: Result Comment: Dr James sim FollowedMANAGEMENT OF PATIENT CARE PER NURSING PROTOCOL Performed By: #### L 501.080 ####[facility] [address] [place], [address] FINGERSTICK GLU 496 mg/dL Invalid Interpretation Code [address] [place] [address] Comment on above: Result Comment: Dr James sim FollowedMANAGEMENT OF PATIENT CARE PER NURSING PROTOCOL Performed By: #### L 501.080 ####[facility] [address] [place], [address] FINGERSTICK GLU > 500 Invalid Interpretation Code [address] [place] [address] Comment on above: Result Comment: ADITI GEMENT OF PATIENT CARE PER NURSING PROTOCOL Performed By: #### L 501.080 ####[facility] [address] [place], [address] FINGERSTICK GLU > 500 Invalid Interpretation Code [address] Comment on above: Result Comment: ADITI GEMENT OF PATIENT CARE PER NURSING PROTOCOL Performed By: #### L 501.080 ####[facility] [address] [place], [address] FINGERSTICK GLU > 500 Invalid Interpretation Code [facility]106 [facility] Comment on above: Result Comment: ADITI GEMENT OF PATIENT CARE PER NURSING PROTOCOL Performed By: #### L 501.080 ####[facility] [address] [place], [address] FINGERSTICK GLU 435 mg/dL High [address] Comment on above: Result Comment: ADITI GEMENT OF PATIENT CARE PER NURSING PROTOCOL Performed By: #### L 501.080 ####[facility] [address] [place], [address] Bilirubin, totalOrdered By: Dyana Hwang on 04-03-2025 Bilirubin [Mass/Vol] 0.38 mg/dL 0.00-1.30 [facility] Positive Normal [facility] Comment on above: Performed By: #### L 9000.0800 ####[facility] [address] [place], [address] Base excess Calc (Bld) [Moles/Vol] -8 mmol/L Low -2 to +2 [facility] Comment on above: Performed By: #### L 9000.0800 ####[facility] [address] [place], [address] Blood Gas Type ART Normal [facility] Comment on above: Performed By: #### L 9000.0800 ####[facility] [address] [place], [address] CO2 [Moles/Vol] 18 mmol/L Normal [facility] Comment on above: Performed By: #### L 9000.0800 ####[facility] [address] [place], [address] FI02 30.0 Normal [facility] Comment on above: Performed By: #### L 0.0800 ####[facility] [address] [place], [address] HCO3 (Bld) [Moles/Vol] 17.5 mmol/L Low 22-26 [facility] Comment on above: Performed By: #### L 0.0800 ####[facility] [address] [place], [address] Mode Not entered Normal [facility] Comment on above: Performed By: #### L 0.0800 ####[facility] [address] [place], [address] O2 Delivery Dev BiPAP Normal [facility] Comment on above: Performed By: #### L 9000.0800 ####[facility] [address] [place], [address] pCO2 29.8 mmHg Low 35-45 [facility] Comment on above: Performed By: #### L 9000.0800 ####[facility] [address] [place], [address] PEEP 10 Normal [facility] Comment on above: Performed By: #### L 9000.0800 ####[facility] [address] [place], [address] pH (Bld) 7.38 [pH] Normal 7.35-7.45 [facility] Comment on above: Performed By: #### L 0.0800 ####[facility] [address] [place], [address] PIP 18 Normal [facility] Comment on above: Performed By: #### L 9000.0800 ####[facility] [address] [place], [address] PO2 83 mmHG Normal 75-100 [facility] Comment on above: Performed By: #### L 9000.0800 ####[facility] [address] [place], [address] RR 12 Normal [facility] Comment on above: Performed By: #### L 9000.0800 ####[facility] [address] [place], [address] SITE R Radial Normal [facility] Comment on above: Performed By: #### L 9000.0800 ####[facility] [address] [place], [address] SO2 96 Normal 95-99 [facility] Comment on above: Performed By: #### L 9000.0800 ####[facility] [address] [place], [address] Blood base excess determinat ionOrdered By: Dyana Hwang on 04-03-2025 Base excess Calc (BldV) [Moles/Vol] -8 mmol/L Low -2-2 [facility] Blood bicarbonate measuremen tOrdered By: Dyana Hwang on 04-03-2025 HCO3 (Bld) [Moles/Vol] 17.5 mmol/L Low 22-26 [facility] Blood cultureOrdered By: Elli Brandon on 04-03-2025 Bacteria identified Cx Nom (Bld) No growth in 5 days. [facility] Bacteria identified Cx Nom (Bld) No growth in 5 days. [facility] CBC W/Diff, Automatedon 06-0 Absolute Lymph 0.43 X10 3/uL Low 0.83-4.51 [facility] Comment on above: Performed By: #### L 100.0100 ####[facility] [address] [place], [address] Absolute Neut 12.4 X10 3/uL High 2.0-7.7 [facility] Comment on above: Performed By: #### L 100.0100 ####[facility] [address] [place], [address] Basophils/100 WBC (Bld) 0.3 % Normal 0-1 [facility] Comment on above: Performed By: #### L 100.0100 ####[facility] [address] [place], [address] Eosinophils/100 WBC (Bld) 0.0 % Normal 0-5 [facility] Comment on above: Performed By: #### L 100.0100 ####[facility] [address] [place], [address] Erythrocyte distribution width (RBC) [Ratio] 13.4 % Normal 11.6-14.6 [facility] Comment on above: Performed By: #### L 100.0100 ####[facility] [address] [place], [address] Hematocrit (Bld) [Volume fraction] 28.9 % Low 40-54 [facility] Comment on above: Performed By: #### L 100.0100 ####[facility] [address] [place], [address] Hemoglobin (Bld) [Mass/Vol] 9.3 g/dL Low 13.0-16.5 [facility] Comment on above: Performed By: #### L 100.0100 ####[facility] [address] [place], [address] IG% 0.500 Normal 0.0-0.9 [facility] Comment on above: Result Comment: IG% - Immature Granulocytes (promyelocytes, myelocytes andmetamyelocytes) > 1% indicates that a LEFT SHIFT is Present. Performed By: #### L 100.0100 ####[facility] [address] [place], [address] Lymphocytes/100 WBC (Bld) 3.3 % Low 19-41 [facility] Comment on above: Performed By: #### L 100.0100 ####[facility] [address] [place], [address] MCH (RBC) [Entitic mass] 30.1 pg Normal 27.0-32.0 [facility] Comment on above: Performed By: #### L 100.0100 ####[facility] [address] [place], [address] MCHC (RBC) [Mass/Vol] 32.2 g/dL Normal 32-36 [facility] Comment on above: Performed By: #### L 100.0100 ####[facility] [address] [place], [address] MCV (RBC) [Entitic vol] 93.5 fL Normal 80-94 [facility] Comment on above: Performed By: #### L 100.0100 ####[facility] [address] [place], [address] Monocytes/100 WBC (Bld) 1.1 % Normal 0-10 [facility] Comment on above: Performed By: #### L 100.0100 ####[facility] [address] [place], [address] Neutrophils/100 WBC (Bld) 94.8 % High 47-70 [facility] Comment on above: Performed By: #### L 100.0100 ####[facility] [address] [place], [address] Nucleated RBC (Bld) [#/Vol] 0 10*3/uL Normal 0-5 [facility] Comment on above: Performed By: #### L 100.0100 ####[facility] [address] [place], [address] Platelet mean volume (Bld) [Entitic vol] 11.4 fL Normal 6.2-12.0 [facility] Comment on above: Performed By: #### L 100.0100 ####[facility] [address] [place], [address] Platelets (Bld) [#/Vol] 268 10*3/uL Normal 150-450 [facility] Comment on above: Performed By: #### L 100.0100 ####[facility] [address] [place], [address] RBC (Bld) [#/Vol] 3.09 10*6/uL Low 4.6-6.2 [facility] Comment on above: Performed By: #### L 100.0100 ####[facility] [address] [place], [address] RDW SD 45.9 fl High 35.1-43.9 [facility] Comment on above: Performed By: #### L 100.0100 ####[facility] [address] [place], [address] WBC (Bld) [#/Vol] 13.0 10*3/uL High 4.4-11.0 [facility] Comment on above: Performed By: #### L 100.0100 ####[facility] [address] [place], [address] Absolute Lymph 2.12 X10 3/uL Normal 0.83-4.51 [facility] Comment on above: Performed By: #### L 100.0100, L500.2500, L300.8000 ####[facility] [address] [place], [address] Absolute Neut 12.0 X10 3/uL High 2.0-7.7 [facility] Comment on above: Performed By: #### L 100.0100, L500.2500, L300.8000 ####[facility] [address] [place], [address] Basophils/100 WBC (Bld) 0.6 % Normal 0-1 [facility] Comment on above: Performed By: #### L 100.0100, L500.2500, L300.8000 ####[facility] [address] [place], [address] Eosinophils/100 WBC (Bld) 1.9 % Normal 0-5 [facility] Comment on above: Performed By: #### L 100.0100, L500.2500, L300.8000 ####[facility] [address] [place], [address] Erythrocyte distribution width (RBC) [Ratio] 13.2 % Normal 11.6-14.6 [facility] Comment on above: Performed By: #### L 100.0100, L500.2500, L300.8000 ####[facility] [address] [place], [address] Hematocrit (Bld) [Volume fraction] 32.2 % Low 40-54 [facility] Comment on above: Performed By: #### L 100.0100, L500.2500, L300.8000 ####[facility] [address] [place], [address] Hemoglobin (Bld) [Mass/Vol] 10.2 g/dL Low 13.0-16.5 [facility] Comment on above: Performed By: #### L 100.0100, L500.2500, L300.8000 ####[facility] [address] [place], [address] IG% 0.600 Normal 0.0-0.9 [facility] Comment on above: Result Comment: IG% - Immature Granulocytes (promyelocytes, myelocytes andmetamyelocytes) > 1% indicates that a LEFT SHIFT is Present. Performed By: #### L 100.0100, L500.2500, L300.8000 ####[facility] [address] [place], [address] Lymphocytes/100 WBC (Bld) 13.5 % Low 19-41 [facility] Comment on above: Performed By: #### L 100.0100, L500.2500, L300.8000 ####[facility] [address] [place], [address] MCH (RBC) [Entitic mass] 29.9 pg Normal 27.0-32.0 [facility] Comment on above: Performed By: #### L 100.0100, L500.2500, L300.8000 ####[facility] [address] [place], [address] MCHC (RBC) [Mass/Vol] 31.7 g/dL Low 32-36 [facility] Comment on above: Performed By: #### L 100.0100, L500.2500, L300.8000 ####[facility] [address] [place], [address] MCV (RBC) [Entitic vol] 94.4 fL High 80-94 [facility] Comment on above: Performed By: #### L 100.0100, L500.2500, L300.8000 ####[facility] [address] [place], [address] Monocytes/100 WBC (Bld) 7.0 % Normal 0-10 [facility] Comment on above: Performed By: #### L 100.0100, L500.2500, L300.8000 ####[facility] [address] [place], [address] Neutrophils/100 WBC (Bld) 76.4 % High 47-70 [facility] Comment on above: Performed By: #### L 100.0100, L500.2500, L300.8000 ####[facility] [address] [place], [address] Nucleated RBC (Bld) [#/Vol] 0 10*3/uL Normal 0-5 [facility] Comment on above: Performed By: #### L 100.0100, L500.2500, L300.8000 ####[facility] [address] [place], [address] Platelet mean volume (Bld) [Entitic vol] 10.8 fL Normal 6.2-12.0 [facility] Comment on above: Performed By: #### L 100.0100, L500.2500, L300.8000 ####[facility] [address] [place], [address] Platelets (Bld) [#/Vol] 300 10*3/uL Normal 150-450 [facility] Comment on above: Performed By: #### L 100.0100, L500.2500, L300.8000 ####[facility] [address] [place], [address] RBC (Bld) [#/Vol] 3.41 10*6/uL Low 4.6-6.2 [facility] Comment on above: Performed By: #### L 100.0100, L500.2500, L300.8000 ####[facility] [address] [place], [address] RDW SD 45.3 fl High 35.1-43.9 [facility] Comment on above: Performed By: #### L 100.0100, L500.2500, L300.8000 ####[facility] [address] [place], [address] WBC (Bld) [#/Vol] 15.7 10*3/uL High 4.4-11.0 [facility] Comment on above: Performed By: #### L 100.0100, L500.2500, L300.8000 ####[facility] [address] [place], [address] CO2 (BldV) [Moles/Vol]Ordere d By: John Brandon on 04-03-2025 CO2 [Moles/Vol] 27 mmol/L 23-33 [facility] CTA Chest W/WO Contraston CTA Chest W/WO Contrast Normal [facility] Calculated very low density lipoprotein (VLDL) cholesterol measurementOrdered By: Dyana Hwang on 04-03-2025 Calculated very low density lipoprotein (VLDL) cholesterol measurement 9 mg/dL 5-40 [facility] Carbon dioxide, total [Moles /volume] in Central venous bloodOrdered By: John Brandon on 04-03-2025 CO2 [Moles/Vol] 20.8 mmol/L Low 21.0-32.0 [facility] Chest 1 View (Portable)on Chest 1 View (Portable) Normal [facility] Chloride assayOrdered By: Shabbir Brandon on 04-03-2025 Chloride [Moles/Vol] 104 mmol/L 98-108 [facility] Comprehensive Metabolic Prof ilon 04-03-2025 Albumin [Mass/Vol] 3.6 g/dL Normal 3.4-4.8 [facility] Comment on above: Performed By: #### L 500.4050, L501.9520, L509.7001, L500.4100 ####[facility] [address] [place], [address] Albumin/Globulin [Mass ratio] 1.5 {ratio} Normal 0.9-2.4 [facility] Comment on above: Performed By: #### L 500.4050, L501.9520, L509.7001, L500.4100 ####[facility] [address] [place], [address] ALK PHOS 80 U/L Normal 40-129 [facility] Comment on above: Performed By: #### L 500.4050, L501.9520, L509.7001, L500.4100 ####[facility] [address] [place], [address] ALT [Catalytic activity/Vol] 16 U/L Normal <=46 [facility] Comment on above: Performed By: #### L 500.4050, L501.9520, L509.7001, L500.4100 ####[facility] [address] [place], [address] AST [Catalytic activity/Vol] 24 U/L Normal <=37 [facility] Comment on above: Performed By: #### L 500.4050, L501.9520, L509.7001, L500.4100 ####[facility] [address] [place], [address] Bilirubin [Mass/Vol] 0.38 mg/dL Normal 0.00-1.30 [facility] Comment on above: Performed By: #### L 500.4050, L501.9520, L509.7001, L500.4100 ####[facility] [address] [place], [address] BUN/CRE 24.6 RATIO High 10-20 [facility] Comment on above: Performed By: #### L 500.4050, L501.9520, L509.7001, L500.4100 ####[facility] [address] [place], [address] Calcium [Mass/Vol] 7.9 mg/dL Normal 7.6-11.0 [facility] Comment on above: Performed By: #### L 500.4050, L501.9520, L509.7001, L500.4100 ####[facility] [address] [place], [address] Chloride [Moles/Vol] 104 mmol/L Normal 98-108 [facility] Comment on above: Performed By: #### L 500.4050, L501.9520, L509.7001, L500.4100 ####[facility] [address] [place], [address] CO2 [Moles/Vol] 15.5 mmol/L Low 21.0-32.0 [facility] Comment on above: Performed By: #### L 500.4050, L501.9520, L509.7001, L500.4100 ####[facility] [address] [place], [address] Creatinine [Mass/Vol] 1.77 mg/dL High 0.70-1.20 [facility] Comment on above: Performed By: #### L 500.4050, L501.9520, L509.7001, L500.4100 ####[facility] [address] [place], [place], [address] ECRCL 28.47 ml/min Low 50-250 [facility] Comment on above: Performed By: #### L 500.4050, L501.9520, L509.7001, L500.4100 ####[facility] [address] [place], [address] GAP 18 High 5-15 [facility] Comment on above: Performed By: #### L 500.4050, L501.9520, L509.7001, L500.4100 ####[facility] [address] [place], [address] GFR/1.73 sq M.predicted among non-blacks MDRD (S/P/Bld) [Vol rate/Area] 38 mL/min/{1.73_m2} Low >60 [facility] Comment on above: Result Comment: mL/m in/1.73m2 CKD-EPI Creatinine Equation (2020) Performed By: #### L 500.4050, L501.9520, L509.7001, L500.4100 ####[facility] [address] [place], [address] Globulin (S) [Mass/Vol] 2.4 g/dL Normal 2.2-4.2 [facility] Comment on above: Performed By: #### L 500.4050, L501.9520, L509.7001, L500.4100 ####[facility] [address] [place], [address] Glucose [Mass/Vol] 428 mg/dL High 70-99 [facility] Comment on above: Performed By: #### L 500.4050, L501.9520, L509.7001, L500.4100 ####[facility] [address] [place], [address] Potassium [Moles/Vol] 4.5 mmol/L Normal 3.3-5.1 [facility] Comment on above: Performed By: #### L 500.4050, L501.9520, L509.7001, L500.4100 ####[facility] [address] [place], [address] Sodium [Moles/Vol] 137 mmol/L Normal 133-145 [facility] Comment on above: Performed By: #### L 500.4050, L501.9520, L509.7001, L500.4100 ####[facility] [address] [place], [address] T PROT 6.0 g/dL Normal 5.9-8.4 [facility] Comment on above: Performed By: #### L 500.4050, L501.9520, L509.7001, L500.4100 ####[facility] [address] [place], [address] Urea nitrogen [Mass/Vol] 44 mg/dL High 4-19 [facility] Comment on above: Performed By: #### L 500.4050, L501.9520, L509.7001, L500.4100 ####[facility] [address] [place], [address] Consultation - Cardiologyon 04-03-2025 Consultation - Cardiology Normal [facility] Consultation - Intensiviston 04-03-2025 Consultation - Aperture Mask Etcher Normal [facility] D-Dimer Quantitative (DVT/PE )on 04-03-2025 D-DIMER QUANT 1.86 FEU/ug/m Invalid Interpretation Code 0.27-0.49 [facility] Comment on above: Result Comment: D-Di shyanne ELEVATED (>0.49): Additional studies and clinicalassessments are indicated to conclude diagnosis of:Deep Vein Thrombosis (DVT) or Pulmonary Embolism (PE)CRITICAL VALUE CALLED TO [id number] Victor Hugo Santamaria.RESULTS READ BACK BY SAME. Performed By: #### L 100.0100, L500.2500, L300.8000 ####[facility] [address] [place], [address] Echo Completeon 04-03-2025 Echo Complete Normal [facility] Echocardiogram study reportO rdered By: Koffi Gibbs on 04-03-2025 Study report [facility] [address] [place] [address] Echo Complete 04/03/25 0920 MR#: [id number] Acct: [id number] Name: ENOC ARMANDO Rep #:[id number] : 1945 79 From: Koffi Gibbs MD [...] ~ Date Dictated: 04/03/25919 Date Transcribed: 04/03/251221 Healthcare Receptionist: Signed [facility] Work Phone: Emergency Department Summary on 04-03-2025 Emergency Department Summary Normal [facility] Eosinophil percentageOrdered By: John Brandon on 04-03-2025 Eosinophils/100 WBC (Bld) 1.9 % 0-5 [facility] Erythrocyte distribution wid th ratioOrdered By: John Brandon on 04-03-2025 Erythrocyte distribution width (RBC) [Ratio] 13.2 % 11.6-14.6 [facility] Erythrocyte distribution wid th standard deviationOrdered By: John Brandon on 04-03-2025 Erythrocyte distribution width (RBC) [Ratio] 45.3 fl High 35.1-43.9 [facility] Glomerular filtration rate ( GFR) estimation/1.73 sq m using serum, plasma, or whole bOrdered By: John Brandon on 04-03-2025 GFR/1.73 sq M.predicted among non-blacks MDRD (S/P/Bld) [Vol rate/Area] 35 mL/min/{1.73_m2} Low >60 [facility] Comment on above: mL/min/1.73m2 CKD-EP I Creatinine Equation (2020) H AND P Exam - Hospitaliston 04-03-2025 H&P Exam - Hospitalist Normal [facility] Hematocrit Auto (Bld) [Volum e fraction]Ordered By: John Brandon on 04-03-2025 Hematocrit (Bld) [Volume fraction] 32.2 % Low 40-54 [facility] Hemoglobin measurementOrdere d By: John Brandon on 04-03-2025 Hemoglobin (Bld) [Mass/Vol] 10.2 g/dL Low 13.0-16.5 [facility] Immature granulocytes/100 WB C Auto (Bld)Ordered By: John Brandon on 04-03-2025 Immature granulocytes/100 WBC (Bld) 0.600 % 0.0-0.9 [facility] Comment on above: IG% - Immature Granu locytes (promyelocytes, myelocytes and metamyelocytes) > 1% indicates that a LEFT SHIFT is Present. Influenza virus A and B and SARS-CoV-2 (COVID-19) and Respiratory syncytial virus RNAOrdered By: John Brandon on 04-03-2025 SARS-CoV-2 (COVID-19) RNA ALICE+probe Ql (Unsp spec) [facility] International normalized rat io (INR) calculationOrdered By: Dyana Hwang on 04-03-2025 INR Coag (Bld) [Relative time] 1.0 {INR} [facility] L499.0042on 04-03-2025 Trop T High Sen Normal <=22 [facility] Comment on above: Result Comment: Canc elled via OM: Duplicate Order Performed By: #### L 499.0042 ####[facility] [address] [place], [place], [address] Trop T High Sen 76 ng/L Invalid Interpretation Code <=22 [facility] Comment on above: Result Comment: Crit ical Result(s) Called at:0312 by:??DASIA SHRESTHAN TO HARLEY Results read back by same. Performed By: #### L 499.0042 ####[facility] [address] [place], [address] L499.0043on 04-03-2025 Trop T High Sen Normal <=22 [facility] Comment on above: Result Comment: Canc elled via OM: Duplicate Order Performed By: #### L 499.0043 ####[facility] [address] [place], [address] Trop T High Sen 80 ng/L Invalid Interpretation Code <=22 [facility] Comment on above: Result Comment: Crit ical Result(s) Called at: 0515 by: DASIA JOSEPH??Results read back by same. Performed By: #### L 499.0043 ####[facility] [address] [place], [address] L501.4021on 04-03-2025 Trop T High Sen 58 ng/L Invalid Interpretation Code <=22 [facility] Comment on above: Result Comment: Crit ical Result(s) Called at: 0058 by: DASIA ALBRIGHT??Results read back by same. Performed By: #### L 503.7507, L501.4021 ####[facility] [address] [place], [address] L503.7505on 04-03-2025 Natriuretic peptide B (Bld) [Mass/Vol] 6552 pg/mL High <=1800 [facility] Comment on above: Result Comment: Hear t Failure Unlikely: < 300 pg/mLHeart Failure Likely< 50 Years: > 450 pg/mL50-75 Years: > 900 pg/mL>75 Years: > 1800 pg/mL Performed By: #### L 5037505, L501.4021 ####[facility] [address] [place], [address] L509.7001on 04-03-2025 Procalcitonin 0.31 ng/mL High <=0.10 [facility] Comment on above: Result Comment: Inte [...] By: #### L 500.4050, L501.9520, L509.7001, L500.4100 ####[facility] [address] [place], [address] LDL calc ser/plasOrdered By: Dyana Hwang on 04-03-2025 Cholesterol in LDL [Mass/Vol] 80 mg/dL [facility] Comment on above: Kwbxjznmsj=387-610 m g/dL & Higher Osmm=514 mg/dL or greater Laboratory - Chemistry and C hemistry - challengeOrdered By: Dyana Hwang on 04-03-2025 AST [Catalytic activity/Vol] 24 U/L <38 [facility] Lactic Acidon 04-03-2025 Lactate [Moles/Vol] 1.3 mmol/L Normal 0.0-2.0 [facility] Comment on above: Order Comment: Y Performed By: #### L 503.6005, M200.1000 ####[facility] [address] [place], [place], [address] Lactic acid measurementOrder ed By: John Brandon on 04-03-2025 Lactate [Moles/Vol] 1.3 mmol/L 0.0-2.0 [facility] Legionella Antigen Urineon 0 04-03-2025 LEGU Normal [facility] Comment on above: Performed By: #### M 300.6090 ####[facility] [address] [place], [place], [address] Lipid Profileon 04-03-2025 CHOL:HDL 2.87 Normal [facility] Comment on above: Performed By: #### L 500.4050, L501.9520, L509.7001, L500.4100 ####[facility] [address] [place], [address] Cholesterol [Mass/Vol] 137 mg/dL Normal <=200 [facility] Comment on above: Result Comment: Chol esterol level, Desirable <200 mg/dLBorderline high cholesterol 200-239 mg/dLHigh cholesterol >=240 mg/dLRecommendations of the NCEP Adult Treatment Panel for thefolling risk-cutoff thresholds for the [place] Americanpulation. Performed By: #### L 500.4050, L501.9520, L509.7001, L500.4100 ####[facility] [address] [place], [address] Cholesterol in HDL [Mass/Vol] 48 mg/dL Normal [facility] Comment on above: Result Comment: Anastacia onal Cholesterol Education Program (NCEP) guidelines:<40 mg/dL: Low HDL-cholesterol (major risk factor for CHD)>= 60 mg/dL: High HDL-cholesterol (negative risk factor forCHD)HDL-cholesterol is affected by a number of factors, e.g.smoking, exercise, hormones, sex and age. Performed By: #### L 500.4050, L501.9520, L509.7001, L500.4100 ####[facility] [address] [place], [address] Cholesterol in LDL [Mass/Vol] 80 mg/dL Normal [facility] Comment on above: Result Comment: Bord vslfhs=500-243 mg/dL Higher Zdwg=715 mg/dL or greater Performed By: #### L 500.4050, L501.9520, L509.7001, L500.4100 ####[facility] [address] [place], [address] Cholesterol in VLDL [Mass/Vol] 9 mg/dL Normal 5-40 [facility] Comment on above: Performed By: #### L 500.4050, L501.9520, L509.7001, L500.4100 ####[facility] [address] [place], [address] Triglyceride [Mass/Vol] 44 mg/dL Normal [facility] Comment on above: Result Comment: The drugs N-Acetylcysteine and Metamizole may falselydepress this assay.Normal range: <150 mg/dLBorderline High: 150-199 mg/dLHigh: 200-499 mg/dLVery High: >500 mg/dL Performed By: #### L 500.4050, L501.9520, L509.7001, L500.4100 ####[facility] [address] [place], [address] M100.678on 04-03-2025 M100.678 SARS-CoV-2 (COVID 19) Negative INFLUENZA A Negative INFLUENZA B Negative RSV PCR Negative Normal [facility] Comment on above: Performed By: #### M 100.678 ####[facility] [address] [place], [address] M8200.1075on 04-03-2025 M8200.1075 Pending MRSA PCR MRSA NEGATIVE STAPH. AUREUS PCR STAPH. AUREUS NEGATIVE Normal [facility] Comment on above: Performed By: #### M 8200.1075 ####[facility] [address] [place], [address] MCV (mean corpuscular volume ) determinationOrdered By: John Brandon on 04-03-2025 MCV (RBC) [Entitic vol] 94.4 fL High 80-94 [facility] Magnesiumon 04-03-2025 Magnesium [Mass/Vol] 2.3 mg/dL High 1.5-2.2 [facility] Comment on above: Order Comment: Comme nts: may add to ED labs Performed By: #### L 501.5200, L300.3900, L300.4310 ####[facility] [address] [place], [address] Magnesium measurement (mass/ volume)Ordered By: Dyana Hwang on 04-03-2025 Magnesium (Unsp spec) [Mass/Vol] 2.3 mg/dL High 1.5-2.2 [facility] Mean corpuscular hemoglobin (MCH) determinationOrdered By: John Brandon on 04-03-2025 MCH (RBC) [Entitic mass] 29.9 pg 27.0-32.0 [facility] Mean corpuscular hemoglobin concentration (MCHC) determinationOrdered By: John Brandon on 04-03-2025 MCHC (RBC) [Mass/Vol] 31.7 g/dL Low 32-36 [facility] Mean platelet volume determi nationOrdered By: John Brandon on 04-03-2025 Platelet mean volume (Bld) [Entitic vol] 10.8 fL 6.2-12.0 [facility] Measurement, pHOrdered By: Anabelle Hwang on 04-03-2025 pH (Unsp spec) 7.38 [pH] 7.35-7.45 [facility] Monocyte percentageOrdered B y: John Brandon on 04-03-2025 Monocytes/100 WBC (Bld) 7.0 % 0-10 [facility] Natriuretic peptide.B prohor katja N-Terminal [Mass/volume] in Serum or PlasmaOrdered By: John Brandon on 04-03-2025 Natriuretic peptide.B prohormone N-Terminal [Mass/Vol] 6552 pg/mL High <1800 [facility] Comment on above: Heart Failure Unlike ly: < 300 pg/mLHeart Failure Likely< 50 Years: > 450 pg/mL50-75 Years: > 900 pg/mL>75 Years: > 1800 pg/mL Neutrophil percentageOrdered By: John Brandon on 04-03-2025 Neutrophils/100 WBC (Bld) 76.4 % High 47-70 [facility] No Panel InformationOrdered By: Dyana Hwang on 04-03-2025 Bedside Blood Gas PEEP 10 [facility] Bld Gas Peak Inspiratory Pressure 18 [facility] Blood Gas Respiration Rate 12 [facility] Blood Gas Sample Site R Radial [facility] Blood Gas Specimen Type ART [facility] Blood Gas Vent Mode Not entered [facility] Oxygen Delivery Device [facility] ART [facility] R Radial [facility] Not entered [facility] BiPAP [facility] 18 [facility] 12 [facility] 10 [facility] 24 U/L <38 [facility] No Panel InformationOrdered By: John Brandon on 04-03-2025 Blood Gas Clinical Comments 18. 10. 30% [facility] 18. 10. 30% [facility] Nucleated red blood cell per centageOrdered By: John Brandon on 04-03-2025 Nucleated RBC/100 WBC (Bld) [Ratio] 0 % 0-5 [facility] Partial Thromboplast Timeon 04-03-2025 aPTT Coag (Bld) [Time] 212.0 s Invalid Interpretation Code 24.1-36.2 [facility] Comment on above: Result Comment: CRIT ICAL VALUE CALLED TO Carol CORONA04/03/25 1243 Ness Huang.RESULTS READ BACK BY SAME. Performed By: #### L 300.4310 ####[facility] [address] [place], [address] aPTT Coag (Bld) [Time] 37.3 s High 24.1-36.2 [facility] Comment on above: Performed By: #### L 501.5200, L300.3900, L300.4310 ####[facility] [address] [place], [address] Platelet countOrdered By: Shabbir Brandon on 04-03-2025 Platelets (Bld) [#/Vol] 300 10*3/uL 150-450 [facility] Potassium measurement (mass/ volume)Ordered By: John Brandon on 04-03-2025 Potassium (Unsp spec) [Mass/Vol] 4.4 mmol/L 3.3-5.1 [facility] Procalcitonin [Mass/volume] in Serum or Plasma by ImmunoassayOrdered By: Dyana Hwang on 04-03-2025 Procalcitonin IA [Mass/Vol] 0.31 ng/mL High <0.11 [facility] Comment on above: Interpretation:<0.10 -0.25 ng/mL: [...] Coag (PPP) [Relative time] 1.0 {INR} Normal [facility] Comment on above: Performed By: #### L 501.5200, L300.3900, L300.4310 ####[facility] [address] [place], [address] PT Coag (PPP) [Time] 13.4 s Normal 11.7-14.9 [facility] Comment on above: Performed By: #### L 501.5200, L300.3900, L300.4310 ####[facility] [address] [place], [address] Prothrombin timeOrdered By: Dyaan Hwang on 04-03-2025 PT Coag (PPP) [Time] 13.4 s 11.7-14.9 [facility] RBC Auto (Bld) [#/Vol]Ordere d By: John Brandon on 04-03-2025 RBC (Bld) [#/Vol] 3.41 10*6/uL Low 4.6-6.2 [facility] RESPIRATORY PANEL MOLECULARo n 04-03-2025 RP PANEL Normal [facility] Comment on above: Performed By: #### M 100.638 ####[facility] [address] [place], [address] Respiratory pathogens detect ion panel by molecular detection methodOrdered By: Dyana Hwang on 04-03-2025 Respiratory pathogens DNA and RNA panel ALCIE+probe (Resp) [facility] Screening total cholesterol/ high density lipoprotein (HDL) cholesterol ratioOrdered By: Dyana Hwang on 04-03-2025 Cholesterol.total/Cholest santos in HDL [Mass ratio] 2.87 {ratio} [facility] Serum creatinine measurement (mass/volume)Ordered By: John Brandon on 04-03-2025 Creatinine [Mass/Vol] 1.88 mg/dL High 0.70-1.20 [facility] Serum globulin measurementOr dered By: Dyana Hwang on 04-03-2025 Globulin (S) [Mass/Vol] 2.4 g/dL 2.2-4.2 [facility] Serum glucose measurement (m ass/volume)Ordered By: John Brandon on 04-03-2025 Glucose [Mass/Vol] 255 mg/dL High 70-99 [facility] Serum or plasma alanine clayton otransferase (ALT) measurementOrdered By: Dyana Hwang on 04-03-2025 ALT [Catalytic activity/Vol] 16 U/L <47 [facility] Serum or plasma albumin nikkie urement (mass/volume)Ordered By: Dyana Hwang on 04-03-2025 Albumin [Mass/Vol] 3.6 g/dL 3.4-4.8 [facility] Serum or plasma albumin/glob ulin mass ratioOrdered By: Dyana Hwang on 04-03-2025 Albumin/Globulin [Mass ratio] 1.5 {ratio} 0.9-2.4 [facility] Serum or plasma alkaline dwight sphatase measurementOrdered By: Dyana Hwang on 04-03-2025 ALP [Catalytic activity/Vol] 80 U/L 40-129 [facility] Serum or plasma calcium nikkie urement (mass/volume)Ordered By: John Brandon on 04-03-2025 Calcium [Mass/Vol] 8.8 mg/dL 7.6-11.0 [facility] Serum or plasma cholesterol in HDL measurement (mass/volume)Ordered By: Dyana Hwang on 04-03-2025 Cholesterol in HDL [Mass/Vol] 48 mg/dL >40 [facility] Comment on above: National Cholesterol Education Program (NCEP) guidelines:<40 mg/dL: Low HDL-cholesterol (major risk factor for CHD)>= 60 mg/dL: High HDL-cholesterol (negative risk factor for CHD)HDL-cholesterol is affected by a number of factors, e.g. smoking, exercise, hormones, sex and age. Serum or plasma cholesterol measurement (mass/volume)Ordered By: Dyana Hwang on 04-03-2025 Cholesterol [Mass/Vol] 137 mg/dL <201 [facility] Comment on above: Cholesterol level, D esirable <200 mg/dLBorderline high cholesterol 200-239 mg/dLHigh cholesterol >=240 mg/dLRecommendations of the NCEP Adult Treatment Panel for the following risk-cutoff thresholds for the [place] population. Serum or plasma urea nitroge n measurement (mass/volume)Ordered By: John Brandon on 04-03-2025 Urea nitrogen [Mass/Vol] 42 mg/dL High 4-19 [facility] Sodium levelOrdered By: Lesley Brandon on 04-03-2025 Sodium [Moles/Vol] 139 mmol/L 133-145 [facility] Strep pneumoniae Antig(UR,CS F)on 04-03-2025 STPAG Normal [facility] Comment on above: Performed By: #### M 300.4600 ####[facility] [address] [place], [place], [address] TSH DL <= 0.005 mIU/L QnOrde red By: Dyana Hwang on 04-03-2025 TSH Qn 0.530 uIU/mL 0.300-4.200 [facility] Thyroid Stim Hormone (TSH)on 04-03-2025 TSH 0.530 uIU/mL Normal 0.300-4.200 [facility] Comment on above: Performed By: #### L 500.4050, L501.9520, L509.7001, L500.4100 ####[facility] [address] [place], [place], [address] Total carbon dioxide measure mentOrdered By: Dyana Hwang on 04-03-2025 CO2 [Moles/Vol] 18 mmol/L [facility] Total proteinOrdered By: Aut yadiran Jaiden on 04-03-2025 Protein [Mass/Vol] 6.0 g/dL 5.9-8.4 [facility] Triglycerides measurementOrd ered By: Dyana Hwang on 04-03-2025 Triglyceride [Mass/Vol] 44 mg/dL <199 [facility] Comment on above: The drugs N-Acetylcy steine and Metamizole may falsely depress this assay. Normal range: <150 mg/dLBorderline High: 150-199 mg/dLHigh: 200-499 mg/dLVery High: >500 mg/dL Troponin T.cardiac [Mass/vol ume] in Serum or Plasma by High sensitivity methodOrdered By: John Brandon on 04-03-2025 Troponin T.cardiac High sensitivity method [Mass/Vol] 80 ng/L High <22 [facility] Comment on above: Critical Result(s) C alled at: 0515 by: DASIA JOSEPH Results read back by same. Troponin T.cardiac High sensitivity method [Mass/Vol] 76 ng/L High <22 [facility] Comment on above: Critical Result(s) C alled at:0312 by: DASIA BOJORQUEZ Results read back by same. Troponin T.cardiac High sensitivity method [Mass/Vol] 58 ng/L High <22 [facility] Comment on above: Critical Result(s) C alled at: 0058 by: DASIA ALBRIGHT Results read back by same. Urine Legionella pneumophila antigen detectionOrdered By: Dyana Hwang on 04-03-2025 L. pneumophila Ag Ql (U) [facility] Urine cultureOrdered By: Cesilia Hwang on 04-03-2025 Bacteria identified Cx Nom (U) Culture exhibits no growth. [facility] Venous Blood Gason 5 Blood Gas Type JUANITA Normal [facility] Comment on above: Performed By: #### L 9000.0810 ####[facility] [address] [place], [address] CO2 [Moles/Vol] 27 mmol/L Normal 23-33 [facility] Comment on above: Performed By: #### L 9000.0810 ####[facility] [address] [place], [address] Comment 18. 10. 30% Normal [facility] Comment on above: Performed By: #### L 9000.0810 ####[facility] [address] [place], [address] FI02 30.0 Normal [facility] Comment on above: Performed By: #### L 9000.0810 ####[facility] [address] [place], [address] HCO3 (Bld) [Moles/Vol] 26 mmol/L Normal 22-26 [facility] Comment on above: Performed By: #### L 9000.0810 ####[facility] [address] [place], [address] O2 Delivery Dev BiPAP Normal [facility] Comment on above: Performed By: #### L 9000.0810 ####[facility] [address] [place], [address] SITE Not entered Normal [facility] Comment on above: Performed By: #### L 9000.0810 ####[facility] [address] [place], [address] VBG BE 0 mmol/L Normal -1.0-3.5 [facility] Comment on above: Performed By: #### L 9000.0810 ####[facility] [address] [place], [address] VBG pCO2 46.6 mmHg Normal 41-51 [facility] Comment on above: Performed By: #### L 9000.0810 ####[facility] [address] [place], [address] VBG pH 7.35 Normal 7.32-7.42 [facility] Comment on above: Performed By: #### L 9000.0810 ####[facility] [address] [place], [address] VBG PO2 44 mmHg High 25-40 [facility] Comment on above: Performed By: #### L 9000.0810 ####[facility] [address] [place], [address] VBG SO2 76 High 50-70 [facility] Comment on above: Performed By: #### L 9000.0810 ####[facility] [address] [place], [address] Venous blood base excess heriberto surementOrdered By: John Brandon on 04-03-2025 Base excess Calc (BldV) [Moles/Vol] 0 mmol/L -1.0-3.5 [facility] Venous blood bicarbonate heriberto surementOrdered By: John Brandon on 04-03-2025 HCO3 (Bld) [Moles/Vol] 26 mmol/L 22-26 [facility] Venous blood oxygen saturati on measurementOrdered By: John Brandon on 04-03-2025 Oxygen saturation in Blood 76 % High 50-70 [facility] Venous blood pH measurementO rdered By: John Brandon on 04-03-2025 pH (BldV) 7.35 [pH] 7.32-7.42 [facility] Venous blood partial pressur e of carbon dioxide measurementOrdered By: John Brandon on 04-03-2025 CO2 (BldV) [Partial pressure] 46.6 mm[Hg] 41-51 [facility] Venous blood partial pressur e of oxygen measurementOrdered By: John Brandon on 04-03-2025 Oxygen (BldV) [Partial pressure] 44 mm[Hg] High 25-40 [facility] White blood cell (WBC) count Ordered By: John Brandon on 04-03-2025 WBC (Bld) [#/Vol] 15.7 10*3/uL High 4.4-11.0 [facility] BASIC METABOLIC PANEL WITH A NION GAPon 03-24-2025 Calcium [Mass/Vol] 8.6 mg/dL Normal 8.6-10.3 [facility] Comment on above: Performed By: #### 9 3565 #### [facility] [address], [address] [place], [place] [id number] [employer]ber: Jadon Velez MD Chloride [Moles/Vol] 104 mmol/L Normal 98-110 [facility] Comment on above: Performed By: #### 9 6580 #### [facility] [address], [address] [place], [place] [id number] [employer]ber: Jadon Velez MD CO2 [Moles/Vol] 23 mmol/L Normal 20-32 [facility] Comment on above: Performed By: #### 9 2498 #### [facility] [address], [address] [place] [address] [employer]ber: Jadon Velez MD Creatinine [Mass/Vol] 1.96 mg/dL High 0.70-1.[address] [facility] Comment on above: Performed By: #### 9 2498 #### [facility] [address], [address] [place] [address] Hog Ribber: Jadon Velez MD ELECTROLYTE BALANCE 11 mmol/L (calc) Normal 7-17 [facility] Comment on above: Performed By: #### 9 2498 #### [facility] [address], [address] [place] [address] Hog Ribber: Jadon Velez MD GFR/1.73 sq M.predicted among non-blacks MDRD (S/P/Bld) [Vol rate/Area] 34 mL/min/{1.73_m2} Low > OR = 60 [facility] Comment on above: Performed By: #### 9 2498 #### [facility] [address], [address] [place] [address] Hog Ribber: Jadon Velez MD Glucose [Mass/Vol] 301 mg/dL High 65-99 [facility] Comment on above: Result Comment: Fasting reference interval For someone without known diabetes, a glucose value >125 mg/dL indicates that they may have diabetes and this should be confirmed with a follow-up test. Performed By: #### 9 2498 #### [facility] [address], [address] [place] [address] Hog Ribber: Jadon Velez MD Potassium [Moles/Vol] 4.2 mmol/L Normal 3.5-5.[address] [facility] Comment on above: Performed By: #### 9 2498 #### [facility] [address], [address] [place] [address] Hog Ribber: Jadon Velez MD Sodium [Moles/Vol] 138 mmol/L Normal 135-146 [facility] Comment on above: Performed By: #### 9 2498 #### [facility] [address] [place] [address], [address] [place] [address] Hog Ribber: Jadon Velez MD Urea nitrogen [Mass/Vol] 39 mg/dL High 7-25 [facility] Comment on above: Performed By: #### 9 2498 #### [facility] of [address], [address] [place] [address] Hog Ribber: Jadon Velez MD Urea nitrogen/Creatinine [Mass ratio] 20 mg/mg Normal 6- [facility] Comment on above: Performed By: #### 9 2498 #### [facility] of [address], [address] [place] [address] Hog Ribber: Jadon Velez MD APTT HEPARIN COVERAGEon aPTT Coag (Bld) [Time] 86 s High 23-34 [facility] Comment on above: Order Comment: Thera peutic range for APTT's is 68 - 104 seconds Performed By: #### 4 6848 ####[facility] [address] [address] Moody Martinez M.D. 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 Performed By: #### 4 6124 #### [facility] [address] [place], [place] [address] Moody Martinez M.D. 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 [id number] CBCon 03-05-2025 AUTO NRBC 0.0 % Normal [facility] Comment on above: Performed By: #### 4 5218 #### LAB [address] [address] Moody Martinez M.D. [id number] AUTO NRBC ABS COUNT 0.00 K/mcL Normal 0.00-0.00 [facility] Comment on above: Performed By: #### 4 5218 #### [facility] [address] [place] [address] Moody Martinez M.D. [id number] Erythrocyte distribution width (RBC) [Ratio] 13.0 % Normal 11.6-14.8 [facility] Comment on above: Performed By: #### 4 5218 #### LAB [address] [place] [address] Moody Martinez M.D. [id number] Hematocrit (Bld) [Volume fraction] 28.4 % Low 41.0-53.0 [facility] Comment on above: Performed By: #### 4 5218 #### LAB [address] [place] [address] Moody Martinez M.D. [id number] Hemoglobin (Bld) [Mass/Vol] 9.3 g/dL Low 13.5-17.5 [facility] Comment on above: Performed By: #### 4 5218 #### [facility] [address] [place] [address] Moody Martinez M.D. [id number] MCH (RBC) [Entitic mass] 30.3 pg Normal 26.0-34.0 [facility] Comment on above: Performed By: #### 4 5218 #### LAB [address] [place] [address] Moody Martinez M.D. [id number] MCV (RBC) [Entitic vol] 92.5 fL Normal 80.0-100.0 [facility] Comment on above: Performed By: #### 4 5218 #### LAB [address] [address] Moody Martinez M.D. [id number] MEAN CORPUSCULAR HEMOGLOBIN CONC 32.7 g/dL Normal 31.0-37.0 [facility] Comment on above: Performed By: #### 4 5218 #### [facility] [address] [place] [address] Moody Martinez M.D. [id number] Platelet mean volume (Bld) [Entitic vol] 11.8 fL Normal 9.4-12.4 [facility] Comment on above: Performed By: #### 4 5218 #### LAB [address] [place] [address] Moody Martinez M.D. [id number] Platelets (Bld) [#/Vol] 191 10*3/uL Normal 150-400 [facility] Comment on above: Performed By: #### 4 5218 #### LAB [address] [place] [address] Moody Martinez M.D. [id number] RBC (Bld) [#/Vol] 3.07 10*6/uL Low 4.50-5.90 [facility] Comment on above: Performed By: #### 4 5218 #### LAB [address] [place] [address] Moody Martinez M.D. [id number] WBC (Bld) [#/Vol] 9.14 10*3/uL Normal 4.50-11.00 [facility] Comment on above: Performed By: #### 4 5218 ####[facility] [address] [address] Moody Martinez M.D. [id number] MAGNESIUM LEVELon 03-05-2025 Magnesium [Mass/Vol] 2.2 mg/dL Normal 1.6-2.4 [facility] Comment on above: Performed By: #### 4 6109 #### [facility] [address] [address] Moody Martinez M.D. [id number] POC GLUCOSE - [facility] 025 Glucose [Mass/Vol] 249 mg/dL High [address] [place] [address] Comment on above: Performed By: #### 4 6932 #### [facility] [address] [place] [address] Moody Martinez M.D. [id number] Glucose [Mass/Vol] 188 mg/dL [address] Comment on above: Performed By: #### 4 6932 ####[facility] [address] [address] Moody Martinez M.D. [id number] Glucose [Mass/Vol] 115 mg/dL [address] Comment on above: Performed By: #### 4 6932 ####[facility] [address] [place] [address] Moody Martinez M.D. [id number] POTASSIUM LEVELon 03-05-2025 Potassium [Moles/Vol] 3.4 mmol/L Low 3.5-5.1 [facility] Comment on above: Performed By: #### 4 6351 ####[facility] [address] [address] Moody Martinez M.D. [id number] APTT HEPARIN COVERAGEon aPTT Coag (Bld) [Time] 72 s High 23-34 [facility] Comment on above: Order Comment: Thera peutic range for APTT's is 68 - 104 seconds Performed By: #### 4 4604 #### LAB [address] [place], [place] [address] Moody Martinez M.D. [id number] BASIC METABOLIC PANELon 05-0 Anion gap [Moles/Vol] 16 mmol/L Normal 10-20 [facility] Comment on above: Order Comment: [facility] has implemented the eGFR calculation approach that does not have a coefficient for race that conforms to the NKF-ASN Task Force Recommendations. Performed By: #### 4 6124 #### [facility] [address] [address] Moody Martinez M.D. [id number] Calcium [Mass/Vol] 8.3 mg/dL Low 8.4-10.2 [facility] Comment on above: Order Comment: [facility] has implemented the eGFR calculation approach that does not have a coefficient for race that conforms to the NKF-ASN Task Force Recommendations. Performed By: #### 4 6124 #### [facility] [address] [address] Moody Martinez M.D. [id number] Chloride [Moles/Vol] 103 mmol/L Normal 98-108 [facility] Comment on above: Order Comment: [facility] has implemented the eGFR calculation approach that does not have a coefficient for race that conforms to the NKF-ASN Task Force Recommendations. Performed By: #### 4 6124 #### [facility] [address] [place] [address] Moody Martinez M.D. [id number] Creatinine [Mass/Vol] 1.89 mg/dL High 0.80-1.30 [facility] Comment on above: Order Comment: [facility] has implemented the eGFR calculation approach that does not have a coefficient for race that conforms to the NKF-ASN Task Force Recommendations. Performed By: #### 4 6124 #### [facility] [address] [place] [address] Moody Martinez M.D. [id number] EGFR 35 mL/min/1.73 m2 Low >=60 [facility] Comment on above: Order Comment: [facility] has implemented the eGFR calculation approach that does not have a coefficient for race that conforms to the NKF-ASN Task Force Recommendations. Result Comment: Albin mated GFR was calculated using the 2020 CKD-EPI creatinine equation. Performed By: #### 4 6115 ####[facility] [address] [address] Moody Martinez M.D. [id number] Glucose [Mass/Vol] 190 mg/dL High 65-99 [facility] Comment on above: Order Comment: [facility] has implemented the eGFR calculation approach that does not have a coefficient for race that conforms to the NKF-ASN Task Force Recommendations. Performed By: #### 4 6167 ####[facility] [address] [address] Moody Martinez M.D. [id number] HCO3 (Bld) [Moles/Vol] 25 mmol/L Normal 21-32 [facility] Comment on above: Order Comment: [facility] has implemented the eGFR calculation approach that does not have a coefficient for race that conforms to the NKF-ASN Task Force Recommendations. Performed By: #### 4 6125 ####[facility] [address] [address] Moody Martinez M.D. [id number] Potassium [Moles/Vol] 3.5 mmol/L Normal 3.5-5.1 [facility] Comment on above: Order Comment: [facility] has implemented the eGFR calculation approach that does not have a coefficient for race that conforms to the NKF-ASN Task Force Recommendations. Performed By: #### 4 6124 ####[facility] [address] [address] Moody Martinez M.D. [id number] Sodium [Moles/Vol] 140 mmol/L Normal 135-145 [facility] Comment on above: Order Comment: [facility] has implemented the eGFR calculation approach that does not have a coefficient for race that conforms to the NKF-ASN Task Force Recommendations. Performed By: #### 4 6124 ####[facility] [address] [address] Mooyd Martinez M.D. [id number] Urea nitrogen [Mass/Vol] 45 mg/dL High 8-25 [facility] Comment on above: Order Comment: [facility] has implemented the eGFR calculation approach that does not have a coefficient for race that conforms to the NKF-ASN Task Force Recommendations. Performed By: #### 4 6124 #### [facility] [address] [address] Moody Martinez M.D. [id number] Urea nitrogen/Creatinine [Mass ratio] 23.8 mg/mg High 10.0-20.0 [facility] Comment on above: Order Comment: [facility] has implemented the eGFR calculation approach that does not have a coefficient for race that conforms to the NKF-ASN Task Force Recommendations. Performed By: #### 4 6124 #### [facility] [address] [address] Moody Martinez M.D. [id number] CBCon 03-04-2025 AUTO NRBC 0.0 % Normal [facility] Comment on above: Performed By: #### 4 5218 #### LAB [address] [address] Moody Martinez M.D. [id number] AUTO NRBC ABS COUNT 0.00 K/mcL Normal 0.00-0.00 [facility] Comment on above: Performed By: #### 4 5218 #### LAB [address] [place] [id number] Moody Martinez M.D. [id number] Erythrocyte distribution width (RBC) [Ratio] 13.1 % Normal 11.6-14.8 [facility] Comment on above: Performed By: #### 4 5218 #### [facility] [address] [address] Moody Martinez M.D. [id number] Hematocrit (Bld) [Volume fraction] 28.1 % Low 41.0-53.0 [facility] Comment on above: Performed By: #### 4 5218 #### [facility] [address] [place] [address] Moody Martinez M.D. [id number] Hemoglobin (Bld) [Mass/Vol] 9.0 g/dL Low 13.5-17.5 [facility] Comment on above: Performed By: #### 4 5218 #### [facility] [address] [address] Moody Martinez M.D. [id number] MCH (RBC) [Entitic mass] 30.6 pg Normal 26.0-34.0 [facility] Comment on above: Performed By: #### 4 5218 #### [facility] [address] [address] Moody Martinez M.D. [id number] MCV (RBC) [Entitic vol] 95.6 fL Normal 80.0-100.0 [facility] Comment on above: Performed By: #### 4 5218 #### LAB [address] [address] Moody Martinez M.D. [id number] MEAN CORPUSCULAR HEMOGLOBIN CONC 32.0 g/dL Normal 31.0-37.0 [facility] Comment on above: Performed By: #### 4 5218 #### [facility] [address] [address] Moody Martinez M.D. [id number] Platelet mean volume (Bld) [Entitic vol] 11.8 fL Normal 9.4-12.4 [facility] Comment on above: Performed By: #### 4 5218 #### [facility] [address] [address] Moody Martinez M.D. [id number] Platelets (Bld) [#/Vol] 175 10*3/uL Normal 150-400 [facility] Comment on above: Performed By: #### 4 5218 #### [facility] [address] [address] Moody Martinez M.D. [id number] RBC (Bld) [#/Vol] 2.94 10*6/uL Low 4.50-5.90 [facility] Comment on above: Performed By: #### 4 5218 #### LAB [address] [place] [id number] Moody Martinez M.D. [id number] WBC (Bld) [#/Vol] 8.08 10*3/uL Normal 4.50-11.00 [facility] Comment on above: Performed By: #### 4 5218 #### [facility] [address] [place] [address] Moody Martinez M.D. [id number] MAGNESIUM LEVELon 03-04-2025 Magnesium [Mass/Vol] 2.2 mg/dL Normal 1.6-2.4 [facility] Comment on above: Performed By: #### 4 6109 #### [facility] [address] [place] [address] Moody Martinez M.D. [id number] POC GLUCOSE - [facility] 025 Glucose [Mass/Vol] 51 mg/dL Off scale low [address] [place] [address] Comment on above: Order Comment: Criti christian result acted upon time of test. Test performed at bedside. Performed By: #### 4 6956 #### [facility] [address] [place] [address] Moody Martinez M.D. [id number] Glucose [Mass/Vol] 354 mg/dL [address] Comment on above: Performed By: #### 4 6978 #### [facility] [address] [place] [address] Moody Martinez M.D. [id number] Glucose [Mass/Vol] 338 mg/dL [address] Comment on above: Performed By: #### 4 6979 #### [facility] [address] [place] [address] Moody Martinez M.D. [id number] Glucose [Mass/Vol] 258 mg/dL [address] Comment on above: Performed By: #### 4 0901 ####[facility] [address] [place] [address] Moody Martinez M.D. [id number] Glucose [Mass/Vol] 242 mg/dL High 65-99 [facility] Comment on above: Performed By: #### 4 6932 #### [facility] [address] [place] [address] Moody Martinez M.D. [id number] POTASSIUM LEVELon 03-04-2025 Potassium [Moles/Vol] 4.1 mmol/L Normal 3.5-5.1 [facility] Comment on above: Result Comment: Slig htly Hemolyzed Performed By: #### 4 6351 ####[facility] [address] [address] Moody Martinez M.D. [id number] TROPONIN (ONCE)on 03-04-2025 BASELINE TROPONIN T NG/L 1494 ng/L Off scale high <=22 [facility] Comment on above: Performed By: #### L [id number] ####[facility] [address] [address] Moody Martinez M.D. [id number] TROPONIN T INTERPRETATION Possible acute cardiac injury. Normal [facility] Comment on above: Performed By: #### L [id number] ####[facility] [address] [address] Moody Martinez M.D. [id number] APTT HEPARIN COVERAGEon 05 aPTT Coag (Bld) [Time] 82 s High 23-34 [facility] Comment on above: Order Comment: Thera peutic range for APTT's is 68 - 104 seconds Performed By: #### 4 6932 #### [facility] [address] [address] Moody Martinez M.D. [id number] aPTT Coag (Bld) [Time] 92 s High 23-34 [facility] Comment on above: Order Comment: Thera peutic range for APTT's is 68 - 104 seconds Performed By: #### 4 6848 ####[facility] [address] [address] Moody Martinez M.D. [id number] aPTT Coag (Bld) [Time] 67 s High 23-34 [facility] Comment on above: Order Comment: Injur y/Trauma or Illness?:Illness/Other How long have you had these symptoms (acute/chronic)?:Acute Reason for exam?:cross clamp of aorta for CPB Type of Exam?:Initial Additional signs and symptoms?:cp Performed By: #### 4 6848 #### [facility] [address] [address] Moody Martinez M.D. [id number] BASIC METABOLIC PANELon 05-0 Anion gap [Moles/Vol] 15 mmol/L Normal 10-20 [facility] Comment on above: Order Comment: [facility] has implemented the eGFR calculation approach that does not have a coefficient for race that conforms to the NKF-ASN Task Force Recommendations. Performed By: #### 4 6124 #### [facility] [address] [place] [address] Moody Martinez M.D. [id number] Calcium [Mass/Vol] 8.3 mg/dL Low 8.4-10.2 [facility] Comment on above: Order Comment: [facility] has implemented the eGFR calculation approach that does not have a coefficient for race that conforms to the NKF-ASN Task Force Recommendations. Performed By: #### 4 6124 #### [facility] [address] [place] [address] Moody Martinez M.D. [id number] Chloride [Moles/Vol] 103 mmol/L Normal 98-108 [facility] Comment on above: Order Comment: [facility] has implemented the eGFR calculation approach that does not have a coefficient for race that conforms to the NKF-ASN Task Force Recommendations. Performed By: #### 4 6124 #### [facility] [address] [place] [address] Moody Martinez M.D. [id number] Creatinine [Mass/Vol] 2.09 mg/dL High 0.80-1.30 [facility] Comment on above: Order Comment: [facility] has implemented the eGFR calculation approach that does not have a coefficient for race that conforms to the NKF-ASN Task Force Recommendations. Performed By: #### 4 6160 #### [facility] [address] [place] [address] Moody Martinez M.D. [id number] EGFR 31 mL/min/1.73 m2 Low >=60 [facility] Comment on above: Order Comment: [facility] has implemented the eGFR calculation approach that does not have a coefficient for race that conforms to the NKF-ASN Task Force Recommendations. Result Comment: Albin mated GFR was calculated using the 2020 CKD-EPI creatinine equation. Performed By: #### 4 6191 #### [facility] [address] [address] Moody Martinez M.D. [id number] Glucose [Mass/Vol] 240 mg/dL High 65-99 [facility] Comment on above: Order Comment: [facility] has implemented the eGFR calculation approach that does not have a coefficient for race that conforms to the NKF-ASN Task Force Recommendations. Performed By: #### 4 6140 #### [facility] [address] [address] Moody Martinez M.D. [id number] HCO3 (Bld) [Moles/Vol] 26 mmol/L Normal 21-32 [facility] Comment on above: Order Comment: [facility] has implemented the eGFR calculation approach that does not have a coefficient for race that conforms to the NKF-ASN Task Force Recommendations. Performed By: #### 4 6162 ####[facility] [address] [address] Moody Martinez M.D. [id number] Potassium [Moles/Vol] 3.6 mmol/L Normal 3.5-5.1 [facility] Comment on above: Order Comment: [facility] has implemented the eGFR calculation approach that does not have a coefficient for race that conforms to the NKF-ASN Task Force Recommendations. Performed By: #### 4 6136 ####[facility] [address] [place] [id number] Moody Martinez M.D. [id number] Sodium [Moles/Vol] 140 mmol/L Normal 135-145 [facility] Comment on above: Order Comment: [facility] has implemented the eGFR calculation approach that does not have a coefficient for race that conforms to the NKF-ASN Task Force Recommendations. Performed By: #### 4 6124 #### LAB [address] [address] Moody Martinez M.D. [id number] Urea nitrogen [Mass/Vol] 49 mg/dL High 8-25 [facility] Comment on above: Order Comment: [facility] has implemented the eGFR calculation approach that does not have a coefficient for race that conforms to the NKF-ASN Task Force Recommendations. Performed By: #### 4 6124 #### LAB [address] [address] Moody Martinez M.D. [id number] Urea nitrogen/Creatinine [Mass ratio] 23.4 mg/mg High 10.0-20.0 [facility] Comment on above: Order Comment: [facility] has implemented the eGFR calculation approach that does not have a coefficient for race that conforms to the NKF-ASN Task Force Recommendations. Performed By: #### 4 6124 #### LAB [address] [address] Moody Martinez M.D. [id number] CBCon 03-03-2025 AUTO NRBC 0.0 % Normal [facility] Comment on above: Performed By: #### 4 [id number] #### LAB [address] [address] Moody Martinez M.D. [id number] AUTO NRBC ABS COUNT 0.00 K/mcL Normal 0.00-0.00 [facility] Comment on above: Performed By: #### 4 [id number] #### LAB [address] [address] Moody Martinez M.D. [id number] Erythrocyte distribution width (RBC) [Ratio] 13.5 % Normal 11.6-14.8 [facility] Comment on above: Performed By: #### 4 [id number] #### LAB [address] [address] Moody Martinez M.D. [id number] Hematocrit (Bld) [Volume fraction] 28.5 % Low 41.0-53.0 [facility] Comment on above: Performed By: #### 4 [id number] #### LAB [address] [address] Moody Martinez M.D. [id number] Hemoglobin (Bld) [Mass/Vol] 9.3 g/dL Low 13.5-17.5 [facility] Comment on above: Performed By: #### 4 [id number] #### LAB [address] [address] Moody Martinez M.D. [id number] MCH (RBC) [Entitic mass] 30.8 pg Normal 26.0-34.0 [facility] Comment on above: Performed By: #### 4 [id number] #### LAB [address] [address] Moody Martinez M.D. [id number] MCV (RBC) [Entitic vol] 94.4 fL Normal 80.0-100.0 [facility] Comment on above: Performed By: #### 4 [id number] #### LAB [address] [address] Moody Martinez M.D. [id number] MEAN CORPUSCULAR HEMOGLOBIN CONC 32.6 g/dL Normal 31.0-37.0 [facility] Comment on above: Performed By: #### 4 [id number] #### LAB [address] [address] Moody Martinez M.D. [id number] Platelet mean volume (Bld) [Entitic vol] 11.8 fL Normal 9.4-12.4 [facility] Comment on above: Performed By: #### 4 [id number] #### LAB [address] [address] Moody Martinez M.D. [id number] Platelets (Bld) [#/Vol] 159 10*3/uL Normal 150-400 [facility] Comment on above: Performed By: #### 4 [id number] #### LAB [address] [address] Moody Martinez M.D. [id number] RBC (Bld) [#/Vol] 3.02 10*6/uL Low 4.50-5.90 [facility] Comment on above: Performed By: #### 4 [id number] ####[facility] LAB [address] [address] Moody Martinez M.D. [id number] WBC (Bld) [#/Vol] 10.19 10*3/uL Normal 4.50-11.00 [facility] Comment on above: Performed By: #### 4 [id number] #### LAB [address] [address] Moody Martinez M.D. [id number] MAGNESIUM LEVELon 03-03-2025 Magnesium [Mass/Vol] 2.3 mg/dL Normal 1.6-2.4 [facility] Comment on above: Performed By: #### 4 6109 ####[facility] LAB [address] [address] Moody Martinez M.D. [id number] POC GLUCOSE [facility] 025 Glucose [Mass/Vol] 221 mg/dL High [address] [place] [address] Comment on above: Performed By: #### L [id number] #### [facility] LAB [address] [address] Moody Martinez M.D. [id number] Glucose [Mass/Vol] 189 mg/dL High [address] [place] [address] Comment on above: Performed By: #### 4 6932 ####[facility] LAB [address] [address] Moody Martinez M.D. [id number] Glucose [Mass/Vol] 91 mg/dL Normal [address] [place] [address] Comment on above: Performed By: #### 4 6932 ####[facility] LAB [address] [address] Moody Martinez M.D. [id number] Glucose [Mass/Vol] 146 mg/dL High 65-99 [facility] Comment on above: Performed By: #### 4 6932 #### LAB [address] [address] Moody Martinez M.D. [id number] TROPONIN (ONCE)on 03-03-2025 BASELINE TROPONIN T NG/L 1524 ng/L Off scale high <=22 [facility] Comment on above: Performed By: #### 4 6932 #### LAB [address] [address] Moody Martinez M.D. [id number] TROPONIN T INTERPRETATION Possible acute cardiac injury. Normal [facility] Comment on above: Performed By: #### 4 6932 #### LAB [address] [address] Moody Martinez M.D. [id number] APTT HEPARIN COVERAGEon aPTT Coag (Bld) [Time] 97 s High 23-34 [facility] Comment on above: Order Comment: Thera peutic range for APTT's is 68 - 104 seconds Performed By: #### 4 6848 #### LAB [address] [address] Moody Martinez M.D. [id number] BASIC METABOLIC PANELon Anion gap [Moles/Vol] 17 mmol/L Normal 10-20 [facility] Comment on above: Order Comment: [facility] has implemented the eGFR calculation approach that does not have a coefficient for race that conforms to the NKF-ASN Task Force Recommendations. Performed By: #### 4 6124 ####[facility] LAB [address] [address] oMody Martinez M.D. [id number] Calcium [Mass/Vol] 8.7 mg/dL Normal 8.4-10.2 [facility] Comment on above: Order Comment: [facility] has implemented the eGFR calculation approach that does not have a coefficient for race that conforms to the NKF-ASN Task Force Recommendations. Performed By: #### 4 6124 #### LAB [address] [id number] Moody Martinez M.D. [id number] Chloride [Moles/Vol] 101 mmol/L Normal 98-108 [facility] Comment on above: Order Comment: [facility] has implemented the eGFR calculation approach that does not have a coefficient for race that conforms to the NKF-ASN Task Force Recommendations. Performed By: #### 4 6124 #### LAB [address] [address] Moody Martinez M.D. [id number] Creatinine [Mass/Vol] 2.16 mg/dL High 0.80-1.30 [facility] Comment on above: Order Comment: [facility] has implemented the eGFR calculation approach that does not have a coefficient for race that conforms to the NKF-ASN Task Force Recommendations. Performed By: #### 4 6124 #### LAB [address] [address] Moody Martinez M.D. [id number] EGFR 30 mL/min/1.73 m2 Low >=60 [facility] Comment on above: Order Comment: [facility] has implemented the eGFR calculation approach that does not have a coefficient for race that conforms to the NKF-ASN Task Force Recommendations. Result Comment: Albin mated GFR was calculated using the 2020 CKD-EPI creatinine equation. Performed By: #### 4 6124 #### LAB [address] [address] Moody Martinez M.D. [id number] Glucose [Mass/Vol] 170 mg/dL High 65-99 [facility] Comment on above: Order Comment: [facility] has implemented the eGFR calculation approach that does not have a coefficient for race that conforms to the NKF-ASN Task Force Recommendations. Performed By: #### 4 6124 #### LAB [address] [address] Moody Martinez M.D. [id number] HCO3 (Bld) [Moles/Vol] 25 mmol/L Normal 21-32 [facility] Comment on above: Order Comment: [facility] has implemented the eGFR calculation approach that does not have a coefficient for race that conforms to the NKF-ASN Task Force Recommendations. Performed By: #### 4 6124 #### LAB [address] [address] Moody Martinez M.D. [id number] Potassium [Moles/Vol] 3.7 mmol/L Normal 3.5-5.1 [facility] Comment on above: Order Comment: [facility] has implemented the eGFR calculation approach that does not have a coefficient for race that conforms to the NKF-ASN Task Force Recommendations. Performed By: #### 4 6124 #### LAB [address] [address] Moody Martinez M.D. [id number] Sodium [Moles/Vol] 139 mmol/L Normal 135-145 [facility] Comment on above: Order Comment: [facility] has implemented the eGFR calculation approach that does not have a coefficient for race that conforms to the NKF-ASN Task Force Recommendations. Performed By: #### 4 6124 #### LAB [address] [address] Moody Mratinez M.D. [id number] Urea nitrogen [Mass/Vol] 44 mg/dL High 8-25 [facility] Comment on above: Order Comment: [facility] has implemented the eGFR calculation approach that does not have a coefficient for race that conforms to the NKF-ASN Task Force Recommendations. Performed By: #### 4 6124 #### LAB [address] [address] Moody Martinez M.D. [id number] Urea nitrogen/Creatinine [Mass ratio] 20.4 mg/mg High 10.0-20.0 [facility] Comment on above: Order Comment: [facility] has implemented the eGFR calculation approach that does not have a coefficient for race that conforms to the NKF-ASN Task Force Recommendations. Performed By: #### 4 6124 #### LAB [address] [address] Moody Martinez M.D. [id number] CBCon 03-02-2025 AUTO NRBC 0.0 % Normal [facility] Comment on above: Order Comment: Injur y/Trauma or Illness?:Illness/Other How long have you had these symptoms (acute/chronic)?:Acute Reason for exam?:sob History of cancer?:. Surgeries, chemotherapy, or radiation?:cardiac catheterization Type of Exam?:Initial Additional signs and symptoms?:n Performed By: #### 4 [id number] #### LAB [address] [address] Moody Martinez M.D. [id number] AUTO NRBC ABS COUNT 0.00 K/mcL Normal 0.00-0.00 [facility] Comment on above: Order Comment: Injur y/Trauma or Illness?:Illness/Other How long have you had these symptoms (acute/chronic)?:Acute Reason for exam?:sob History of cancer?:. Surgeries, chemotherapy, or radiation?:cardiac catheterization Type of Exam?:Initial Additional signs and symptoms?:n Performed By: #### 4 [id number] #### LAB [address] [address] Moody Martinez M.D. [id number] Erythrocyte distribution width (RBC) [Ratio] 13.4 % Normal 11.6-14.8 [facility] Comment on above: Order Comment: Injur y/Trauma or Illness?:Illness/Other How long have you had these symptoms (acute/chronic)?:Acute Reason for exam?:sob History of cancer?:. Surgeries, chemotherapy, or radiation?:cardiac catheterization Type of Exam?:Initial Additional signs and symptoms?:n Performed By: #### 4 [id number] #### LAB [address] [address] Moody Martinez M.D. [id number] Hematocrit (Bld) [Volume fraction] 31.3 % Low 41.0-53.0 [facility] Comment on above: Order Comment: Injur y/Trauma or Illness?:Illness/Other How long have you had these symptoms (acute/chronic)?:Acute Reason for exam?:sob History of cancer?:. Surgeries, chemotherapy, or radiation?:cardiac catheterization Type of Exam?:Initial Additional signs and symptoms?:n Performed By: #### 4 [id number] #### LAB [address] [address] Moody Martinez M.D. [id number] Hemoglobin (Bld) [Mass/Vol] 10.3 g/dL Low 13.5-17.5 [facility] Comment on above: Order Comment: Injur y/Trauma or Illness?:Illness/Other How long have you had these symptoms (acute/chronic)?:Acute Reason for exam?:sob History of cancer?:. Surgeries, chemotherapy, or radiation?:cardiac catheterization Type of Exam?:Initial Additional signs and symptoms?:n Performed By: #### 4 [id number] #### LAB [address] [address] Moody Martinez M.D. [id number] MCH (RBC) [Entitic mass] 31.0 pg Normal 26.0-34.0 [facility] Comment on above: Order Comment: Injur y/Trauma or Illness?:Illness/Other How long have you had these symptoms (acute/chronic)?:Acute Reason for exam?:sob History of cancer?:. Surgeries, chemotherapy, or radiation?:cardiac catheterization Type of Exam?:Initial Additional signs and symptoms?:n Performed By: #### 4 [id number] #### LAB [address] [address] Moody Martinez M.D. [id number] MCV (RBC) [Entitic vol] 94.3 fL Normal 80.0-100.0 [facility] Comment on above: Order Comment: Injur y/Trauma or Illness?:Illness/Other How long have you had these symptoms (acute/chronic)?:Acute Reason for exam?:sob History of cancer?:. Surgeries, chemotherapy, or radiation?:cardiac catheterization Type of Exam?:Initial Additional signs and symptoms?:n Performed By: #### 4 [id number] #### LAB [address] [address] Moody Martinez M.D. [id number] MEAN CORPUSCULAR HEMOGLOBIN CONC 32.9 g/dL Normal 31.0-37.0 [facility] Comment on above: Order Comment: Injur y/Trauma or Illness?:Illness/Other How long have you had these symptoms (acute/chronic)?:Acute Reason for exam?:sob History of cancer?:. Surgeries, chemotherapy, or radiation?:cardiac catheterization Type of Exam?:Initial Additional signs and symptoms?:n Performed By: #### 4 [id number] #### LAB [address] [address] Moody Martinez M.D. [id number] Platelet mean volume (Bld) [Entitic vol] 11.6 fL Normal 9.4-12.4 [facility] Comment on above: Order Comment: Injur y/Trauma or Illness?:Illness/Other How long have you had these symptoms (acute/chronic)?:Acute Reason for exam?:sob History of cancer?:. Surgeries, chemotherapy, or radiation?:cardiac catheterization Type of Exam?:Initial Additional signs and symptoms?:n Performed By: #### 4 [id number] #### LAB [address] [address] Moody Martinez M.D. [id number] Platelets (Bld) [#/Vol] 176 10*3/uL Normal 150-400 [facility] Comment on above: Order Comment: Injur y/Trauma or Illness?:Illness/Other How long have you had these symptoms (acute/chronic)?:Acute Reason for exam?:sob History of cancer?:. Surgeries, chemotherapy, or radiation?:cardiac catheterization Type of Exam?:Initial Additional signs and symptoms?:n Performed By: #### 4 [id number] #### LAB [address] [address] Moody Martinez M.D. [id number] RBC (Bld) [#/Vol] 3.32 10*6/uL Low 4.50-5.90 [facility] Comment on above: Order Comment: Injur y/Trauma or Illness?:Illness/Other How long have you had these symptoms (acute/chronic)?:Acute Reason for exam?:sob History of cancer?:. Surgeries, chemotherapy, or radiation?:cardiac catheterization Type of Exam?:Initial Additional signs and symptoms?:n Performed By: #### 4 [id number] #### LAB [address] [address] Moody Martinez M.D. [id number] WBC (Bld) [#/Vol] 14.08 10*3/uL High 4.50-11.00 [facility] Comment on above: Order Comment: Injur y/Trauma or Illness?:Illness/Other How long have you had these symptoms (acute/chronic)?:Acute Reason for exam?:sob History of cancer?:. Surgeries, chemotherapy, or radiation?:cardiac catheterization Type of Exam?:Initial Additional signs and symptoms?:n Performed By: #### 4 [id number] #### LAB [address] [address] Moody Martinez M.D. [id number] AUTO NRBC 0.0 % Normal [facility] Comment on above: Performed By: #### 4 5218 #### LAB [address] [address] Moody Martinez M.D. [id number] AUTO NRBC ABS COUNT 0.00 K/mcL Normal 0.00-0.00 [facility] Comment on above: Performed By: #### 4 5218 #### LAB [address] [address] Moody Martinez M.D. [id number] Erythrocyte distribution width (RBC) [Ratio] 13.4 % Normal 11.6-14.8 [facility] Comment on above: Performed By: #### 4 5218 #### LAB [address] [address] Moody Martinez M.D. [id number] Hematocrit (Bld) [Volume fraction] 34.4 % Low 41.0-53.0 [facility] Comment on above: Performed By: #### 4 5218 #### LAB [address] [address] Moody Martinez M.D. [id number] Hemoglobin (Bld) [Mass/Vol] 11.2 g/dL Low 13.5-17.5 [facility] Comment on above: Performed By: #### 4 5218 #### LAB [address] [address] Moody Martinez M.D. [id number] MCH (RBC) [Entitic mass] 31.1 pg Normal 26.0-34.0 [facility] Comment on above: Performed By: #### 4 5218 #### LAB [address] [address] Moody Martinez M.D. [id number] MCV (RBC) [Entitic vol] 95.6 fL Normal 80.0-100.0 [facility] Comment on above: Performed By: #### 4 5218 #### LAB [address] [address] Moody Martinez M.D. [id number] MEAN CORPUSCULAR HEMOGLOBIN CONC 32.6 g/dL Normal 31.0-37.0 [facility] Comment on above: Performed By: #### 4 5218 #### LAB [address] [address] Moody Martinez M.D. [id number] Platelet mean volume (Bld) [Entitic vol] 11.4 fL Normal 9.4-12.4 [facility] Comment on above: Performed By: #### 4 5218 #### LAB [address] [address] Moody Martinez M.D. [id number] Platelets (Bld) [#/Vol] 189 10*3/uL Normal 150-400 [facility] Comment on above: Performed By: #### 4 5218 #### LAB [address] [address] Moody Martinez M.D. [id number] RBC (Bld) [#/Vol] 3.60 10*6/uL Low 4.50-5.90 [facility] Comment on above: Performed By: #### 4 5218 #### LAB [address] [address] Moody Martinez M.D. [id number] WBC (Bld) [#/Vol] 11.96 10*3/uL High 4.50-11.00 [facility] Comment on above: Performed By: #### 4 5218 #### LAB [address] [place], [place] [address] Moody Martinez M.D. [id number] CONSULTon 03-02-2025 CONSULT General Cardiology Inpatient Consult Heart & Vascular [facility] 03/02/2025 Diogenes Garay MD [facility] Patient: Enoc Armando Date of : [...] for further details. Diogenes Garay MD [facility] Non-Invasive Cardiology [facility] Heart and Vascular Subjective Reason for [...] ventricle systolic pressure is 49 mmHg. 10/27/24 [facility] Left Main The vessel is moderate [...] Skin: Negative. (more content not included)... Normal [facility] ECHOCARDIOGRAM COMPLETEon ECHOCARDIOGRAM COMPLETE Patient Info Name: ENOC ARMANDO Age: 79 years : 1945 Gender: Male Ht: 170 cm Wt: 64 kg BSA: 1.74 m2 HR: 81 bpm BP: 112 / 57 mmHg Heart Rhythm: Sinus Rhythm Technical Quality: Good Exam Date: 03/02/2025 2:27 PM Patient Status: Inpatient [employer]: Mikel Olvera RCDS Exam Type: ECHOCARDIOGRAM COMPLETE Study Info Indications - Chest pain R07.9 - Chest pain, unspecified Referring Physician: TANISHA Alves; [id number] BMI: 22.08 kg/m2 Summary 1. Left ventricular [...] Factors Hypertension: Yes Dyslipidemia: Yes Myocardial Infarction (WI): No Congestive Heart Failure (CHF): Hx CHF [...] mmHg MV VTI 35 cm MV Decel Tensas 390 cm/s2 MV PHT 75 ms MV [...] Annular TDI (more content not included)... Normal [facility] MAGNESIUM LEVELon 03-02-2025 Magnesium [Mass/Vol] 2.2 mg/dL Normal 1.6-2.4 [facility] Comment on above: Performed By: #### 4 6109 ####[facility] LAB [address] [place], [place] [address] Moody Martinez M.D. [id number] NT PRO BNPon 03-02-2025 Natriuretic peptide B (Bld) [Mass/Vol] 05816 pg/mL High 0-300 [facility] Comment on above: Order Comment: Pride Study Cut-offsRule In:< /= 50 Years >450 pg/mL51 Years - 75 Years >900 pg/mL76 Years - 99 Years >1800 pg/mLRule Out:All patients <300 pg/mL Performed By: #### 4 7395 #### LAB [address] [place], [place] [address] Moody Martinez M.D. [id number] POC GLUCOSE [facility] 025 Glucose [Mass/Vol] 287 mg/dL [address] Comment on above: Performed By: #### 4 6932 ####[facility] [address] [address] Moody Martinez M.D. [id number] Glucose [Mass/Vol] 137 mg/dL [address] Comment on above: Performed By: #### 4 6932 ####[facility] [address] [address] Moody Martinez M.D. [id number] Glucose [Mass/Vol] 252 mg/dL [address] Comment on above: Performed By: #### 4 6932 ####[facility] [address] [address] Moody Martinez M.D. [id number] Glucose [Mass/Vol] 332 mg/dL [address] Comment on above: Performed By: #### 4 6932 #### LAB [address] [address] Moody Martinez M.D. [id number] Glucose [Mass/Vol] 286 mg/dL [address] Comment on above: Performed By: #### 4 6932 #### LAB [address] [address] Moody Martinez M.D. [id number] Glucose [Mass/Vol] 168 mg/dL [address] Comment on above: Performed By: #### L [id number] #### [facility] LAB [address] [address] Moody Martinez M.D. [id number] Glucose [Mass/Vol] 186 mg/dL High 65-99 [facility] Comment on above: Performed By: #### 4 6932 #### LAB [address] [id number] Moody Martinez M.D. [id number] POTASSIUM LEVELon 03-02-2025 Potassium [Moles/Vol] 3.9 mmol/L Normal 3.5-5.1 [facility] Comment on above: Performed By: #### 4 6351 #### LAB [address] [address] Moody Martinez M.D. [id number] TROPONIN X 2 (NOW AND REPEAT IN 2 HOURS)on 03-02-2025 TROPONIN T DELTA CHANGE INTERPRETATION Delta troponin requires at least 2 hours between collections. [facility] Comment on above: Performed By: #### 4 6608 #### LAB [address] [address] Moody Martinez M.D. [id number] TROPONIN T NG/L 1447 ng/L Off scale high <=22 [facility] Comment on above: Performed By: #### 4 6608 #### LAB [address] [address] Moody Martinez M.D. [id number] BASELINE TROPONIN T NG/L 1309 ng/L Off scale high <=22 [facility] Comment on above: Performed By: #### 4 6608 #### LAB [address] [address] Moody Martinez M.D. [id number] TROPONIN T INTERPRETATION Possible acute cardiac injury. [facility] Comment on above: Performed By: #### 4 6608 #### LAB [address] [address] Moody Martinez M.D. [id number] XR CHEST PA/APon 03-02-2025 XR CHEST PA/AP [...] (HCC) J18.9 Pneumonia E11.10 DKA (diabetic ketoacidosis) ([facility]) COMPARISON: 02/28/2025. TECHNIQUE: Single portable semierect view. FINDINGS: Cardiac silhouette and mediastinal contours are stable. No pneumothorax or large pleural effusion. There is development of qktfdzqr-bq-sfrwme bilateral mixed interstitial and alveolar opacities in both lungs consistent with pulmonary edema; although, underlying pneumonia/aspiration is not excluded. IMPRESSION: Development of exixlixy-hx-qvjfup mixed interstitial and alveolar opacities in both lungs consistent with pulmonary edema. Underlying pneumonia/aspiration not excluded. No pneumothorax or large pleural effusion. JAR/trw Workstation ID: [id number] Dictated by: KAHLIL VARGHESE on WedMarch 02, 2025 2:36:56 PM EDT Transcribed by: AFUA RALPH on WedMarch 02, 2025 3:15:52 PM EDT Finalized by: KAHLIL VARHGESE on WedMarch 02, 2025 3:23:59 PM EDT Normal [facility] Comment on above: Order Comment: Injur y/Trauma or Illness?:Illness/OtherHow long have you had these symptoms (acute/chronic)?:AcuteReason for exam?:SOBHistory of cancer?:.Surgeries, chemotherapy, or radiation?:cardiac catheterizationType of Exam?:InitialAdditional signs and symptoms?:. BASIC METABOLIC PANELon 05-0 Anion gap [Moles/Vol] 15 mmol/L Normal 10-20 [facility] Comment on above: Order Comment: [facility] has implemented the eGFR calculation approach that does not have a coefficient for race that conforms to the NKF-ASN Task Force Recommendations. Performed By: #### 4 6124 ####[facility] LAB [address] [place], [place] [address] Moody Martinez M.D. [id number] Calcium [Mass/Vol] 8.7 mg/dL Normal 8.4-10.2 [facility] Comment on above: Order Comment: [facility] has implemented the eGFR calculation approach that does not have a coefficient for race that conforms to the NKF-ASN Task Force Recommendations. Performed By: #### 4 6124 #### LAB [address] [place], [place] [address] Moody Martinez M.D. [id number] Chloride [Moles/Vol] 104 mmol/L Normal 98-108 [facility] Comment on above: Order Comment: [facility] has implemented the eGFR calculation approach that does not have a coefficient for race that conforms to the NKF-ASN Task Force Recommendations. Performed By: #### 4 6124 #### LAB [address] [address] Moody Martinez M.D. [id number] Creatinine [Mass/Vol] 2.49 mg/dL High 0.80-1.30 [facility] Comment on above: Order Comment: [facility] has implemented the eGFR calculation approach that does not have a coefficient for race that conforms to the NKF-ASN Task Force Recommendations. Performed By: #### 4 6124 #### LAB [address] [id number] Moody Martinez M.D. [id number] EGFR 25 mL/min/1.73 m2 Low >=60 [facility] Comment on above: Order Comment: [facility] has implemented the eGFR calculation approach that does not have a coefficient for race that conforms to the NKF-ASN Task Force Recommendations. Result Comment: Albin mated GFR was calculated using the 2020 CKD-EPI creatinine equation. Performed By: #### 4 6124 #### LAB [address] [id number] Moody Martinez M.D. [id number] Glucose [Mass/Vol] 86 mg/dL Normal 65-99 [facility] Comment on above: Order Comment: [facility] has implemented the eGFR calculation approach that does not have a coefficient for race that conforms to the NKF-ASN Task Force Recommendations. Performed By: #### 4 6124 #### LAB [address] [address] Moody Martinez M.D. [id number] HCO3 (Bld) [Moles/Vol] 26 mmol/L Normal 21-32 [facility] Comment on above: Order Comment: [facility] has implemented the eGFR calculation approach that does not have a coefficient for race that conforms to the NKF-ASN Task Force Recommendations. Performed By: #### 4 6124 #### LAB [address] [address] Moody Martinez M.D. [id number] Potassium [Moles/Vol] 4.2 mmol/L Normal 3.5-5.1 [facility] Comment on above: Order Comment: [facility] has implemented the eGFR calculation approach that does not have a coefficient for race that conforms to the NKF-ASN Task Force Recommendations. Performed By: #### 4 6124 #### LAB [address] [address] Moody Martinez M.D. [id number] Sodium [Moles/Vol] 141 mmol/L Normal 135-145 [facility] Comment on above: Order Comment: [facility] has implemented the eGFR calculation approach that does not have a coefficient for race that conforms to the NKF-ASN Task Force Recommendations. Performed By: #### 4 6124 #### LAB [address] [address] Moody Martinez M.D. [id number] Urea nitrogen [Mass/Vol] 47 mg/dL High 8-25 [facility] Comment on above: Order Comment: [facility] has implemented the eGFR calculation approach that does not have a coefficient for race that conforms to the NKF-ASN Task Force Recommendations. Performed By: #### 4 6124 #### LAB [address] [address] Moody Martinez M.D. [id number] Urea nitrogen/Creatinine [Mass ratio] 18.9 mg/mg Normal 10.0-20.0 [facility] Comment on above: Order Comment: [facility] has implemented the eGFR calculation approach that does not have a coefficient for race that conforms to the NKF-ASN Task Force Recommendations. Performed By: #### 4 6124 #### LAB [address] [address] Moody Martinez M.D. [id number] CBCon 03-01-2025 AUTO NRBC 0.0 % Normal [facility] Comment on above: Performed By: #### 4 [id number] ####[facility] LAB [address] [address] Moody Martinez M.D. [id number] AUTO NRBC ABS COUNT 0.00 K/mcL Normal 0.00-0.00 [facility] Comment on above: Performed By: #### 4 [id number] #### LAB [address] [address] Moody Martinez M.D. [id number] Erythrocyte distribution width (RBC) [Ratio] 13.7 % Normal 11.6-14.8 [facility] Comment on above: Performed By: #### 4 5218 #### LAB [address] [address] Moody Martinez M.D. [id number] Hematocrit (Bld) [Volume fraction] 29.8 % Low 41.0-53.0 [facility] Comment on above: Performed By: #### 4 [id number] #### LAB [address] [address] Moody Martinez M.D. [id number] Hemoglobin (Bld) [Mass/Vol] 9.9 g/dL Low 13.5-17.5 [facility] Comment on above: Performed By: #### 4 [id number] #### LAB [address] [address] Moody Martinez M.D. [id number] MCH (RBC) [Entitic mass] 31.0 pg Normal 26.0-34.0 [facility] Comment on above: Performed By: #### 4 [id number] #### LAB [address] [address] Moody Martinez M.D. [id number] MCV (RBC) [Entitic vol] 93.4 fL Normal 80.0-100.0 [facility] Comment on above: Performed By: #### 4 [id number] #### LAB [address] [address] Moody Martinez M.D. [id number] MEAN CORPUSCULAR HEMOGLOBIN CONC 33.2 g/dL Normal 31.0-37.0 [facility] Comment on above: Performed By: #### 4 [id number] #### LAB [address] [address] Moody Martinez M.D. [id number] Platelet mean volume (Bld) [Entitic vol] 10.9 fL Normal 9.4-12.4 [facility] Comment on above: Performed By: #### 4 5218 ####[facility] LAB [address] [address] Moody Martinez M.D. [id number] Platelets (Bld) [#/Vol] 186 10*3/uL Normal 150-400 [facility] Comment on above: Performed By: #### 4 5218 #### LAB [address] [address] Moody Martinez M.D. [id number] RBC (Bld) [#/Vol] 3.19 10*6/uL Low 4.50-5.90 [facility] Comment on above: Performed By: #### 4 5218 #### LAB [address] [address] Moody Martinez M.D. [id number] WBC (Bld) [#/Vol] 15.37 10*3/uL High 4.50-11.00 [facility] Comment on above: Performed By: #### 4 5218 #### LAB [address] [address] Moody Martinez M.D. [id number] MAGNESIUM LEVELon 03-01-2025 Magnesium [Mass/Vol] 2.1 mg/dL Normal 1.6-2.4 [facility] Comment on above: Performed By: #### 4 6109 ####[facility] LAB [address] [address] Moody Martinez M.D. [id number] PHOSPHORUSon 03-01-2025 Phosphate [Mass/Vol] 4.3 mg/dL High 2.3-3.7 [facility] Comment on above: Performed By: #### 4 6299 ####[facility] LAB [address] [address] Moody Martinez M.D. [id number] POC GLUCOSE - [facility] 025 Glucose [Mass/Vol] 249 mg/dL High [address] [place] [address] Comment on above: Performed By: #### 4 6932 ####[facility] LAB [address] [address] Moody Martinez M.D. [id number] Glucose [Mass/Vol] 79 mg/dL Normal [address] [place] [address] Comment on above: Performed By: #### 4 6932 ####[facility] LAB [address] [address] Moody Martinez M.D. [id number] Glucose [Mass/Vol] 237 mg/dL High [address] [place] [address] Comment on above: Performed By: #### 4 6932 ####[facility] LAB [address] [address] Moody Martinez M.D. [id number] Glucose [Mass/Vol] 85 mg/dL Normal [address] [place] [address] Comment on above: Performed By: #### 4 6981 ####[facility] LAB [address] [address] Moody Martinez M.D. [id number] Glucose [Mass/Vol] 167 mg/dL High [address] [place] [address] Comment on above: Performed By: #### 4 6920 ####[facility] LAB [address] [address] Moody Martinez M.D. [id number] BASIC METABOLIC PANELon 02-01 Anion gap [Moles/Vol] 16 mmol/L Normal 10-20 [facility] Comment on above: Order Comment: [facility] has implemented the eGFR calculation approach that does not have a coefficient for race that conforms to the NKF-ASN Task Force Recommendations. Performed By: #### 4 4014 #### LAB [address] [place], [place] [address] Moody Martinez M.D. [id number] Calcium [Mass/Vol] 9.5 mg/dL Normal 8.4-10.2 [facility] Comment on above: Order Comment: [facility] has implemented the eGFR calculation approach that does not have a coefficient for race that conforms to the NKF-ASN Task Force Recommendations. Performed By: #### 4 4014 #### LAB [address] [place], [place] [address] Moody Martinez M.D. [id number] Chloride [Moles/Vol] 103 mmol/L Normal 98-108 [facility] Comment on above: Order Comment: [facility] has implemented the eGFR calculation approach that does not have a coefficient for race that conforms to the NKF-ASN Task Force Recommendations. Performed By: #### 4 4014 #### LAB [address] [address] Moody Martinez M.D. [id number] Creatinine [Mass/Vol] 2.61 mg/dL High 0.80-1.30 [facility] Comment on above: Order Comment: [facility] has implemented the eGFR calculation approach that does not have a coefficient for race that conforms to the NKF-ASN Task Force Recommendations. Performed By: #### 4 4014 #### LAB [address] [place], [place] [address] Moody Martinez M.D. [id number] EGFR 24 mL/min/1.73 m2 Low >=60 [facility] Comment on above: Order Comment: [facility] has implemented the eGFR calculation approach that does not have a coefficient for race that conforms to the NKF-ASN Task Force Recommendations. Result Comment: Albin mated GFR was calculated using the 2020 CKD-EPI creatinine equation. Performed By: #### 4 4014 #### [facility] LAB [address] [address] Moody Martinez M.D. [id number] Glucose [Mass/Vol] 138 mg/dL High 65-99 [facility] Comment on above: Order Comment: [facility] has implemented the eGFR calculation approach that does not have a coefficient for race that conforms to the NKF-ASN Task Force Recommendations. Performed By: #### 4 4014 #### [facility] LAB [address] [address] Moody Martinez M.D. [id number] HCO3 (Bld) [Moles/Vol] 23 mmol/L Normal 21-32 [facility] Comment on above: Order Comment: [facility] has implemented the eGFR calculation approach that does not have a coefficient for race that conforms to the NKF-ASN Task Force Recommendations. Performed By: #### 4 4014 #### [facility] LAB [address] [address] Moody Martinez M.D. [id number] Potassium [Moles/Vol] 4.0 mmol/L Normal 3.5-5.1 [facility] Comment on above: Order Comment: [facility] has implemented the eGFR calculation approach that does not have a coefficient for race that conforms to the NKF-ASN Task Force Recommendations. Performed By: #### 4 4014 #### [facility] LAB [address] [address] Moody Martinez M.D. [id number] Sodium [Moles/Vol] 138 mmol/L Normal 135-145 [facility] Comment on above: Order Comment: [facility] has implemented the eGFR calculation approach that does not have a coefficient for race that conforms to the NKF-ASN Task Force Recommendations. Performed By: #### 4 4014 #### [facility] LAB [address] [address] Moody Martinez M.D. [id number] Urea nitrogen [Mass/Vol] 50 mg/dL High 8-25 [facility] Comment on above: Order Comment: [facility] has implemented the eGFR calculation approach that does not have a coefficient for race that conforms to the NKF-ASN Task Force Recommendations. Performed By: #### 4 4014 #### LAB [address] [place], [place] [address] Moody Martinez M.D. [id number] Urea nitrogen/Creatinine [Mass ratio] 19.2 mg/mg Normal 10.0-20.0 [facility] Comment on above: Order Comment: [facility] has implemented the eGFR calculation approach that does not have a coefficient for race that conforms to the NKF-ASN Task Force Recommendations. Performed By: #### 4 4014 #### LAB [address] [id number] Moody Martinez M.D. [id number] Anion gap [Moles/Vol] 22 mmol/L [facility] 10 [facility] Comment on above: Order Comment: Injur y/Trauma or Illness?:Illness/Other How long have you had these symptoms (acute/chronic)?:Acute Reason for exam?:cross clamp of aorta for CPB Type of Exam?:Initial Additional signs and symptoms?:cp Performed By: #### 4 6124 #### LAB [address] [id number] Moody Martinez M.D. [id number] Calcium [Mass/Vol] 9.6 mg/dL Normal 8.4-10.2 [facility] Comment on above: Order Comment: Injur y/Trauma or Illness?:Illness/Other How long have you had these symptoms (acute/chronic)?:Acute Reason for exam?:cross clamp of aorta for CPB Type of Exam?:Initial Additional signs and symptoms?:cp Performed By: #### 4 6137 #### LAB [address] [id number] Moody Martinez M.D. [id number] Chloride [Moles/Vol] 100 mmol/L Normal 98-108 [facility] Comment on above: Order Comment: Injur y/Trauma or Illness?:Illness/Other How long have you had these symptoms (acute/chronic)?:Acute Reason for exam?:cross clamp of aorta for CPB Type of Exam?:Initial Additional signs and symptoms?:cp Performed By: #### 4 6176 #### LAB [address] [address] Moody Martinez M.D. [id number] Creatinine [Mass/Vol] 2.69 mg/dL High 0.80-1.30 [facility] Comment on above: Order Comment: Injur y/Trauma or Illness?:Illness/Other How long have you had these symptoms (acute/chronic)?:Acute Reason for exam?:cross clamp of aorta for CPB Type of Exam?:Initial Additional signs and symptoms?:cp Performed By: #### 4 6132 #### LAB [address] [address] Moody Martinez M.D. [id number] EGFR 23 mL/min/1.73 m2 Low >=60 [facility] Comment on above: Order Comment: Injur y/Trauma or Illness?:Illness/Other How long have you had these symptoms (acute/chronic)?:Acute Reason for exam?:cross clamp of aorta for CPB Type of Exam?:Initial Additional signs and symptoms?:cp Result Comment: Albin mated GFR was calculated using the 2020 CKD-EPI creatinine equation. Performed By: #### 4 6114 #### LAB [address] [address] Moody Martinez M.D. [id number] Glucose [Mass/Vol] 426 mg/dL Off scale high 65-99 [facility] Comment on above: Order Comment: Injur y/Trauma or Illness?:Illness/Other How long have you had these symptoms (acute/chronic)?:Acute Reason for exam?:cross clamp of aorta for CPB Type of Exam?:Initial Additional signs and symptoms?:cp Performed By: #### 4 6137 #### LAB [address] [address] Moody Martinez M.D. [id number] HCO3 (Bld) [Moles/Vol] 19 mmol/L Low 21-32 [facility] Comment on above: Order Comment: Injur y/Trauma or Illness?:Illness/Other How long have you had these symptoms (acute/chronic)?:Acute Reason for exam?:cross clamp of aorta for CPB Type of Exam?:Initial Additional signs and symptoms?:cp Performed By: #### 4 6124 #### LAB [address] [address] Moody Martinez M.D. [id number] Potassium [Moles/Vol] 4.0 mmol/L Normal 3.5-5.1 [facility] Comment on above: Order Comment: Injur y/Trauma or Illness?:Illness/Other How long have you had these symptoms (acute/chronic)?:Acute Reason for exam?:cross clamp of aorta for CPB Type of Exam?:Initial Additional signs and symptoms?:cp Performed By: #### 4 6124 #### LAB [address] [address] Moody Martinez M.D. [id number] Sodium [Moles/Vol] 137 mmol/L Normal 135-145 [facility] Comment on above: Order Comment: Injur y/Trauma or Illness?:Illness/Other How long have you had these symptoms (acute/chronic)?:Acute Reason for exam?:cross clamp of aorta for CPB Type of Exam?:Initial Additional signs and symptoms?:cp Performed By: #### 4 6124 #### LAB [address] [address] Moody Martinez M.D. [id number] Urea nitrogen [Mass/Vol] 51 mg/dL High 8-25 [facility] Comment on above: Order Comment: Injur y/Trauma or Illness?:Illness/Other How long have you had these symptoms (acute/chronic)?:Acute Reason for exam?:cross clamp of aorta for CPB Type of Exam?:Initial Additional signs and symptoms?:cp Performed By: #### 4 6124 #### LAB [address] [address] Moody Martinez M.D. [id number] Urea nitrogen/Creatinine [Mass ratio] 19.0 mg/mg Normal 10.0-20.0 [facility] Comment on above: Order Comment: Injur y/Trauma or Illness?:Illness/Other How long have you had these symptoms (acute/chronic)?:Acute Reason for exam?:cross clamp of aorta for CPB Type of Exam?:Initial Additional signs and symptoms?:cp Performed By: #### 4 6124 #### LAB [address] [address] Moody Martinez M.D. [id number] Anion gap [Moles/Vol] 27 mmol/L High 10-20 [facility] Comment on above: Order Comment: [facility] has implemented the eGFR calculation approach that does not have a coefficient for race that conforms to the NKF-ASN Task Force Recommendations. Performed By: #### 4 6124 #### LAB [address] [address] Moody Martinez M.D. [id number] Calcium [Mass/Vol] 9.6 mg/dL Normal 8.4-10.2 [facility] Comment on above: Order Comment: [facility] has implemented the eGFR calculation approach that does not have a coefficient for race that conforms to the NKF-ASN Task Force Recommendations. Performed By: #### 4 6124 #### LAB [address] [address] Moody Martinez M.D. [id number] Chloride [Moles/Vol] 97 mmol/L Low 98-108 [facility] Comment on above: Order Comment: [facility] has implemented the eGFR calculation approach that does not have a coefficient for race that conforms to the NKF-ASN Task Force Recommendations. Performed By: #### 4 6124 #### LAB [address] [address] Moody Martinez M.D. [id number] Creatinine [Mass/Vol] 2.72 mg/dL High 0.80-1.30 [facility] Comment on above: Order Comment: [facility] has implemented the eGFR calculation approach that does not have a coefficient for race that conforms to the NKF-ASN Task Force Recommendations. Performed By: #### 4 6148 #### LAB [address] [address] Moody Martinez M.D. [id number] EGFR 23 mL/min/1.73 m2 Low >=60 [facility] Comment on above: Order Comment: [facility] has implemented the eGFR calculation approach that does not have a coefficient for race that conforms to the NKF-ASN Task Force Recommendations. Result Comment: Albin mated GFR was calculated using the 2020 CKD-EPI creatinine equation. Performed By: #### 4 6124 #### LAB [address] [address] Moody Martinez M.D. [id number] Glucose [Mass/Vol] 529 mg/dL Off scale high 65-99 [facility] Comment on above: Order Comment: [facility] has implemented the eGFR calculation approach that does not have a coefficient for race that conforms to the NKF-ASN Task Force Recommendations. Performed By: #### 4 6124 #### LAB [address] [address] Moody Martinez M.D. [id number] HCO3 (Bld) [Moles/Vol] 17 mmol/L Low 21-32 [facility] Comment on above: Order Comment: [facility] has implemented the eGFR calculation approach that does not have a coefficient for race that conforms to the NKF-ASN Task Force Recommendations. Performed By: #### 4 6124 #### LAB [address] [address] Moody Martinez M.D. [id number] Potassium [Moles/Vol] 4.5 mmol/L Normal 3.5-5.1 [facility] Comment on above: Order Comment: [facility] has implemented the eGFR calculation approach that does not have a coefficient for race that conforms to the NKF-ASN Task Force Recommendations. Performed By: #### 4 6124 #### LAB [address] [address] Moody Martinez M.D. [id number] Sodium [Moles/Vol] 136 mmol/L Normal 135-145 [facility] Comment on above: Order Comment: [facility] has implemented the eGFR calculation approach that does not have a coefficient for race that conforms to the NKF-ASN Task Force Recommendations. Performed By: #### 4 6124 #### LAB [address] [id number] Moody Martinez M.D. [id number] Urea nitrogen [Mass/Vol] 52 mg/dL High 8-25 [facility] Comment on above: Order Comment: [facility] has implemented the eGFR calculation approach that does not have a coefficient for race that conforms to the NKF-ASN Task Force Recommendations. Performed By: #### 4 6124 #### LAB [address] [address] Moody Martinez M.D. [id number] Urea nitrogen/Creatinine [Mass ratio] 19.1 mg/mg Normal 10.0-20.0 [facility] Comment on above: Order Comment: [facility] has implemented the eGFR calculation approach that does not have a coefficient for race that conforms to the NKF-ASN Task Force Recommendations. Performed By: #### 4 6124 #### LAB [address] [address] Moody Martinez M.D. [id number] Anion gap [Moles/Vol] 28 mmol/L High 10-20 [facility] Comment on above: Order Comment: Injur y/Trauma or Illness?:Illness/Other How long have you had these symptoms (acute/chronic)?:Acute Reason for exam?:sob History of cancer?:. Surgeries, chemotherapy, or radiation?:cardiac catheterization Type of Exam?:Initial Additional signs and symptoms?:n Performed By: #### 4 6124 #### LAB [address] [address] Moody Martinez M.D. [id number] Calcium [Mass/Vol] 9.6 mg/dL Normal 8.4-10.2 [facility] Comment on above: Order Comment: Injur y/Trauma or Illness?:Illness/Other How long have you had these symptoms (acute/chronic)?:Acute Reason for exam?:sob History of cancer?:. Surgeries, chemotherapy, or radiation?:cardiac catheterization Type of Exam?:Initial Additional signs and symptoms?:n Performed By: #### 4 6124 #### LAB [address] [address] Moody Martinez M.D. [id number] Chloride [Moles/Vol] 97 mmol/L Low 98-108 [facility] Comment on above: Order Comment: Injur y/Trauma or Illness?:Illness/Other How long have you had these symptoms (acute/chronic)?:Acute Reason for exam?:sob History of cancer?:. Surgeries, chemotherapy, or radiation?:cardiac catheterization Type of Exam?:Initial Additional signs and symptoms?:n Performed By: #### 4 6124 #### LAB [address] [address] Moody Martinez M.D. [id number] Creatinine [Mass/Vol] 2.66 mg/dL High 0.80-1.30 [facility] Comment on above: Order Comment: Injur y/Trauma or Illness?:Illness/Other How long have you had these symptoms (acute/chronic)?:Acute Reason for exam?:sob History of cancer?:. Surgeries, chemotherapy, or radiation?:cardiac catheterization Type of Exam?:Initial Additional signs and symptoms?:n Performed By: #### 4 6124 #### LAB [address] [address] Moody Martinez M.D. [id number] EGFR 23 mL/min/1.73 m2 Low >=60 [facility] Comment on above: Order Comment: Injur y/Trauma or Illness?:Illness/Other How long have you had these symptoms (acute/chronic)?:Acute Reason for exam?:sob History of cancer?:. Surgeries, chemotherapy, or radiation?:cardiac catheterization Type of Exam?:Initial Additional signs and symptoms?:n Result Comment: Albin mated GFR was calculated using the 2020 CKD-EPI creatinine equation. Performed By: #### 4 6127 #### LAB [address] [address] Moody Martinez M.D. [id number] Glucose [Mass/Vol] 514 mg/dL Off scale high 65-99 [facility] Comment on above: Order Comment: Injur y/Trauma or Illness?:Illness/Other How long have you had these symptoms (acute/chronic)?:Acute Reason for exam?:sob History of cancer?:. Surgeries, chemotherapy, or radiation?:cardiac catheterization Type of Exam?:Initial Additional signs and symptoms?:n Performed By: #### 4 6110 #### LAB [address] [place] [address] Moody Martinez M.D. [id number] HCO3 (Bld) [Moles/Vol] 18 mmol/L Low 21-32 [facility] Comment on above: Order Comment: Injur y/Trauma or Illness?:Illness/Other How long have you had these symptoms (acute/chronic)?:Acute Reason for exam?:sob History of cancer?:. Surgeries, chemotherapy, or radiation?:cardiac catheterization Type of Exam?:Initial Additional signs and symptoms?:n Performed By: #### 4 6192 #### LAB [address] [address] Moody Martinez M.D. [id number] Potassium [Moles/Vol] 5.9 mmol/L High 3.5-5.1 [facility] Comment on above: Order Comment: Injur y/Trauma or Illness?:Illness/Other How long have you had these symptoms (acute/chronic)?:Acute Reason for exam?:sob History of cancer?:. Surgeries, chemotherapy, or radiation?:cardiac catheterization Type of Exam?:Initial Additional signs and symptoms?:n Result Comment: Slig htly Hemolyzed Performed By: #### 4 3670 #### LAB [address] [address] Moody Martinez M.D. [id number] Sodium [Moles/Vol] 137 mmol/L Normal 135-145 [facility] Comment on above: Order Comment: Injur y/Trauma or Illness?:Illness/Other How long have you had these symptoms (acute/chronic)?:Acute Reason for exam?:sob History of cancer?:. Surgeries, chemotherapy, or radiation?:cardiac catheterization Type of Exam?:Initial Additional signs and symptoms?:n Performed By: #### 4 0493 #### LAB [address] [address] Moody Martinez M.D. [id number] Urea nitrogen [Mass/Vol] 50 mg/dL High 8-25 [facility] Comment on above: Order Comment: Injur y/Trauma or Illness?:Illness/Other How long have you had these symptoms (acute/chronic)?:Acute Reason for exam?:sob History of cancer?:. Surgeries, chemotherapy, or radiation?:cardiac catheterization Type of Exam?:Initial Additional signs and symptoms?:n Performed By: #### 4 6124 ####[facility] LAB [address] [address] Moody Martinez M.D. [id number] Urea nitrogen/Creatinine [Mass ratio] 18.8 mg/mg Normal 10.0-20.0 [facility] Comment on above: Order Comment: Injur y/Trauma or Illness?:Illness/Other How long have you had these symptoms (acute/chronic)?:Acute Reason for exam?:sob History of cancer?:. Surgeries, chemotherapy, or radiation?:cardiac catheterization Type of Exam?:Initial Additional signs and symptoms?:n Performed By: #### 4 6124 ####[facility] LAB [address] [address] Moody Martinez M.D. [id number] BETA-HYDROXYBUTYRATEon 02-28 BETA-HYDROXYBUTYRATE < Normal 0.0-0.3 [facility] Comment on above: Performed By: #### 4 5185 ####[facility] LAB [address] [address] Moody Martinez M.D. [id number] BETA-HYDROXYBUTYRATE 1.1 mmol/L High 0.0-0.3 [facility] Comment on above: Performed By: #### 4 5199 ####[facility] LAB [address] [address] Moody Martinez M.D. [id number] BETA-HYDROXYBUTYRATE 3.3 mmol/L High 0.0-0.3 [facility] Comment on above: Performed By: #### 4 4014 #### [facility] [address] [address] Moody Martinez M.D. [id number] BETA-HYDROXYBUTYRATE 3.3 mmol/L High 0.0-0.3 [facility] Comment on above: Performed By: #### 4 4014 #### [facility] [address] [address] Moody Martinez M.D. [id number] BLOOD CULTURE AEROBIC/ANAERO BICon 02-28-2025 BLOOD CULTURE AEROBIC/ANAEROBIC BLOOD CULTURE No Growth after 5 days [facility] Comment on above: Performed By: #### 4 4014 #### [facility] [address] [address] Moody Martinez M.D. [id number] Performed By: #### 4 4014 ####[facility] LAB [address] [address] Moody Martinez M.D. [id number] CBC WITH AUTO DIFFERENTIALon 02-28-2025 AUTO NRBC 0.0 % [facility] Comment on above: Performed By: #### L [id number] ####[facility] LAB [address] [address] Moody Martinez M.D. [id number] AUTO NRBC ABS COUNT 0.00 K/mcL Normal 0.00-0.00 [facility] Comment on above: Performed By: #### L [id number] ####[facility] LAB [address] [address] Moody Martinez M.D. [id number] BASOPHILS ABSOLUTE COUNT 0.05 K/mcL Normal 0.00-0.30 [facility] Comment on above: Performed By: #### L [id number] ####[facility] [address] [address] Moody Martinez M.D. [id number] Basophils/100 WBC (Bld) 0.3 % [facility] Comment on above: Performed By: #### L [id number] ####[facility] LAB [address] [address] Moody Martinez M.D. [id number] Eosinophils (Bld) [#/Vol] 0.00 10*3/uL Normal 0.00-0.5 0 [facility] Comment on above: Performed By: #### L [id number] #### LAB [address] [address] Moody Martinez M.D. [id number] Eosinophils/100 WBC (Bld) 0.0 % Normal [facility] Comment on above: Performed By: #### L [id number] #### LAB [address] [address] Moody Martinez M.D. [id number] Erythrocyte distribution width (RBC) [Ratio] 13.5 % Normal 11.6-14.8 [facility] Comment on above: Performed By: #### L [id number] #### LAB [address] [address] Moody Martinez M.D. [id number] Hematocrit (Bld) [Volume fraction] 40.2 % Low 41.0-53.0 [facility] Comment on above: Performed By: #### L [id number] #### LAB [address] [address] Moody Martinez M.D. [id number] Hemoglobin (Bld) [Mass/Vol] 13.1 g/dL Low 13.5-17.5 [facility] Comment on above: Performed By: #### L [id number] #### LAB [address] [place] [address] Moody Martinez M.D. [id number] IG ABSOLUTE 0.16 K/mcL Normal 0.00-0.30 [facility] Comment on above: Performed By: #### L [id number] #### LAB [address] [place] [address] Moody Martinez M.D. [id number] IG PERCENT 0.80 % Normal [facility] Comment on above: Result Comment: The IG parameter is the percentage of metamyelocytes, myelocytes and promyelocytes. An immature granulocyte count (IG) of 1% or more suggests the possibility of infection, an IG count of 3% is very likely related to an infection. Performed By: #### L [id number] #### LAB [address] [address] Moody Martinez M.D. [id number] Lymphocytes (Bld) [#/Vol] 1.13 10*3/uL Normal 0.90-4.0 0 [facility] Comment on above: Performed By: #### L [id number] #### LAB [address] [address] Moody Martinez M.D. [id number] Lymphocytes/100 WBC (Bld) 6.0 % Normal [facility] Comment on above: Performed By: #### L [id number] #### LAB [address] [address] Moody Martinez M.D. [id number] MCH (RBC) [Entitic mass] 30.8 pg Normal 26.0-34.0 [facility] Comment on above: Performed By: #### L [id number] #### LAB [address] [address] Moody Martinez M.D. [id number] MCV (RBC) [Entitic vol] 94.6 fL Normal 80.0-100.0 [facility] Comment on above: Performed By: #### L [id number] #### LAB [address] [address] Moody Martinez M.D. [id number] MEAN CORPUSCULAR HEMOGLOBIN CONC 32.6 g/dL Normal 31.0-37.0 [facility] Comment on above: Performed By: #### L [id number] #### LAB [address] [address] Moody Martinez M.D. [id number] Monocytes (Bld) [#/Vol] 0.91 10*3/uL High 0.30-0.90 [facility] Comment on above: Performed By: #### L [id number] #### LAB [address] [place] [address] Moody Martinez M.D. [id number] Monocytes/100 WBC (Bld) 4.8 % Normal [facility] Comment on above: Performed By: #### L [id number] #### LAB [address] [address] Moody Martinez M.D. [id number] NEUTROPHILS ABSOLUTE COUNT 16.63 K/mcL High 1.70-7.00 [facility] Comment on above: Performed By: #### L [id number] #### LAB [address] [address] Moody Martinez M.D. [id number] Neutrophils/100 WBC (Bld) 88.1 % Normal [facility] Comment on above: Performed By: #### L [id number] #### LAB [address] [address] Moody Martinez M.D. [id number] Platelet mean volume (Bld) [Entitic vol] 11.1 fL Normal 9.4-12.4 [facility] Comment on above: Performed By: #### L [id number] #### LAB [address] [address] Moody Martinez M.D. [id number] Platelets (Bld) [#/Vol] 258 10*3/uL Normal 150-400 [facility] Comment on above: Performed By: #### L [id number] #### LAB [address] [address] Moody Martinez M.D. [id number] RBC (Bld) [#/Vol] 4.25 10*6/uL Low 4.50-5.90 [facility] Comment on above: Performed By: #### L [id number] #### LAB [address] [address] Moody Martinez M.D. [id number] WBC (Bld) [#/Vol] 18.88 10*3/uL High 4.50-11.00 [facility] Comment on above: Performed By: #### L [id number] #### LAB [address] [address] Moody Martinez M.D. [id number] COVID-19/INFLUENZA A,B MOLEC ULARon 02-28-2025 SARS-CoV-2 (COVID-19) Ab IA Ql SARS-COV-2 (FERDINAND) Not Detected INFLUENZA A (FERDINAND) Not Detected INFLUENZA B (FERDINAND) Not Detected Normal Not Detected [facility] Comment on above: Performed By: #### L [id number] #### LAB [address] [place], [place] [address] Moody Martinez M.D. [id number] CRP, INFLAMMATIONon 02-29-20 CRP (INFLAMMATION) < Normal 0.0-10.0 [facility] Comment on above: Performed By: #### 4 5334 #### LAB [address] [place], [place] [address] Moody Martinez M.D. [id number] D-DIMER, QUANTITATIVEon 02-01 D-DIMER QUANTITATIVE 1.67 mcg/mL FEU High 0.27-0.49 [facility] Comment on above: Order Comment: A [...] By: #### 4 5434 #### LAB [address] [place], [place] [address] Moody Martinez M.D. [id number] ED Procedureon 02-28-2025 ED Procedure ECG 12 Lead Date/Time: 02/28/2025 4:33 AM Performed by: Conchita Yañez MD Authorized by: Conchita Yañez MD Interpreted by ED attending physician Rhythm: sinus rhythm and sinus tachycardia BPM: 103 Clinical impression: sinus tachycardia Comments: ND interval 144 QRS duration 90 QTc 437 AUTHENTICATED BY CONCHITA YAÑEZ, ON 02/28/2025 04:33:26 Normal [facility] ED Procedure EKG 12-lead Date/Time: 02/28/2025 3:26 AM Performed by: Conchita Yañez MD Authorized by: Conchita Yañez MD Interpreted by ED attending physician Rhythm: sinus rhythm BPM: 88 Comments: ND interval 162 QRS duration 102 QTc 491 T wave inversion in lead III and aVF as well as V5 V6 AUTHENTICATED BY CONCHITA YAÑEZ, ON 02/28/2025 03:26:34 Normal [facility] ED Prov Noteon 02-28-2025 ED Prov Note [facility] EMERGENCY DEPARTMENT ATTENDING NOTE: NAME: Enoc Armando CSN: [id number] 79 y.o. 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 Normal [facility] HEMOGLOBIN A1Con 02-28-2025 Glucose [Mass/Vol] 171 mg/dL High 74-114 [facility] Comment on above: Performed By: #### 4 8202 ####[facility] LAB [address] [place], [place] [address] Moody Martinez M.D. [id number] HbA1c (Bld) [Mass fraction] 7.6 % High 4.2-5.6 [facility] Comment on above: Performed By: #### 4 8202 ####[facility] LAB [address] [place], [place] [address] Moody Martinez M.D. [id number] LACTIC ACID, PLASMAon 2024 LACTIC ACID, PLASMA 2.9 mmol/L High 0.6-2.0 [facility] Comment on above: Performed By: #### 4 4014 #### LAB [address] [address] Moody Martinez M.D. [id number] LEGIONELLA ANTIGEN, URINEon 02-28-2025 LEGIONELLA ANTIGEN, URINE LEGIONELLA ANT IGEN Negative for Legionella antigen COMMENT: Results may be affected if patient is on diuretics. INTERPRETATION OF RESULTS: Test detects Legionella pneumophilia serogroup 1 antigens in urine. Legionnaires disease cannot be ruled out since other serogroups and species may also cause disease. Normal [facility] Comment on above: Performed By: #### 4 4090 #### LAB [address] [address] Moody Martinez M.D. [id number] MRSA DNA AMPLIFIED PROBEon 0 02-28-2025 MRSA DNA AMPLIFIED PROBE Negative Normal Not Detected, MRSA NEGATIVE [facility] Comment on above: Performed By: #### 4 8061 #### LAB [address] [address] Moody Martinez M.D. [id number] NT PRO BNPon 02-28-2025 Natriuretic peptide B (Bld) [Mass/Vol] 9634 pg/mL High 0-[address] [place] [address] Comment on above: Order Comment: Injur y/Trauma or Illness?:Illness/Other How long have you had these symptoms (acute/chronic)?:Acute Reason for exam?:sob History of cancer?:. Surgeries, chemotherapy, or radiation?:cardiac catheterization Type of Exam?:Initial Additional signs and symptoms?:n Performed By: #### 4 7395 #### LAB [address] [address] Moody Martinez M.D. [id number] Natriuretic peptide B (Bld) [Mass/Vol] 3396 pg/mL High 0-300 [facility] Comment on above: Order Comment: Pride Study Cut-offsRule In:< /= 50 Years >450 pg/mL51 Years - 75 Years >900 pg/mL76 Years - 99 Years >1800 pg/mLRule Out:All patients <300 pg/mL Performed By: #### 4 7395 #### LAB [address] [address] Moody Martinez M.D. [id number] OSMOLALITYon 02-28-2025 Osmolality [Osmolality] 328 mosm/kg High 275-295 [facility] Comment on above: Performed By: #### 4 6230 #### LAB [address] [address] Moody Martinez M.D. [id number] PHOSPHORUSon 02-28-2025 Phosphate [Mass/Vol] 2.5 mg/dL Normal 2.3-3.7 [facility] Comment on above: Performed By: #### 4 6299 #### LAB [address] [address] Moody Martinez M.D. [id number] Phosphate [Mass/Vol] 2.7 mg/dL Normal 2.3-3.7 [facility] Comment on above: Performed By: #### 4 6299 ####[facility] [address] [address] Moody Martinez M.D. [id number] Phosphate [Mass/Vol] 3.5 mg/dL Normal 2.3-3.7 [facility] Comment on above: Performed By: #### 4 6299 #### LAB [address] [address] Moody Martinez M.D. [id number] POC GLUCOSE - [facility] 025 Glucose [Mass/Vol] 236 mg/dL [address] Comment on above: Performed By: #### 4 6932 #### LAB [address] [address] Moody Martinez M.D. [id number] Glucose [Mass/Vol] 153 mg/dL [address] Comment on above: Performed By: #### L [id number] #### [facility] [address] [address] Moody Martinez M.D. [id number] Glucose [Mass/Vol] 57 mg/dL Low [address] [place] [address] Comment on above: Performed By: #### 4 6932 ####[facility] [address] [address] Moody Martinez M.D. [id number] Glucose [Mass/Vol] 73 mg/dL Normal [address] [place] [address] Comment on above: Performed By: #### 4 6932 ####[facility] [address] [address] Moody Martinez M.D. [id number] Glucose [Mass/Vol] 102 mg/dL High [address] [place] [address] Comment on above: Performed By: #### L [id number] #### [facility] [address] [address] Moody Martinez M.D. [id number] Glucose [Mass/Vol] 119 mg/dL High [address] [place] [address] Comment on above: Performed By: #### 4 6932 #### [facility] [address] [address] Moody Martinez M.D. [id number] Glucose [Mass/Vol] 146 mg/dL High [address] [place] [address] Comment on above: Performed By: #### 4 6932 ####[facility] [address] [address] Moody Martinez M.D. [id number] Glucose [Mass/Vol] 177 mg/dL High [address] [place] [address] Comment on above: Performed By: #### 4 6932 ####[facility] [address] [address] Moody Martinez M.D. [id number] Glucose [Mass/Vol] 241 mg/dL High [address] [place] [address] Comment on above: Performed By: #### 4 6932 ####[facility] [address] [address] Moody Martinez M.D. [id number] Glucose [Mass/Vol] 326 mg/dL High [address] [place] [address] Comment on above: Performed By: #### 4 6932 ####[facility] [address] [address] Moody Martinez M.D. [id number] Glucose [Mass/Vol] 429 mg/dL Off scale high [address] Comment on above: Order Comment: Criti christian result acted upon time of test. Test performed at bedside. Performed By: #### 4 6932 ####[facility] [address] [address] Moody Martinez M.D. [id number] POC GLUCOSE > Off scale high [address] [place] [address] Comment on above: Order Comment: Criti christian result acted upon time of test. Test performed at bedside. Performed By: #### 4 6932 ####[facility] [address] [address] Moody Martinez M.D. [id number] POC GLUCOSE > Off scale [address] Comment on above: Order Comment: Criti christian result acted upon time of test. Test performed at bedside. Performed By: #### 4 6932 ####[facility] [address] [address] Moody Martinez M.D. [id number] POC VENOUS BLOOD GAS PANEL-P ROSE Lyons 02-28-2025 BASE EXCESS, VENOUS -5.7 Low -2.0-2.0 [facility] Comment on above: Performed By: #### 4 8717 #### LAB [address] [address] Moody Martinez M.D. [id number] FIO2 50 Normal [facility] Comment on above: Performed By: #### 4 8717 ####[facility] LAB [address] [address] Moody Martinez M.D. [id number] HCO3 (Bld) [Moles/Vol] 19.3 mmol/L Low 24.0-28.0 [facility] Comment on above: Performed By: #### 4 8717 #### LAB [address] [address] Moody Martinez M.D. [id number] Hematocrit (Bld) [Volume fraction] 37.3 % Low 41.0-53.0 [facility] Comment on above: Performed By: #### 4 8717 #### LAB [address] [address] Moody Martinez M.D. [id number] Hemoglobin (Bld) [Mass/Vol] 12.2 g/dL Low 13.5-17.5 [facility] Comment on above: Performed By: #### 4 8717 #### LAB [address] [address] Moody Martinez M.D. [id number] Oxygen saturation in Blood 93.7 % High 40.0-70.0 [facility] Comment on above: Performed By: #### 4 8717 #### LAB [address] [address] Moody Martinez M.D. [id number] PCO2 VENOUS 35.1 mm Hg Low 41.0-51.0 [facility] Comment on above: Performed By: #### 4 8717 #### LAB [address] [address] Moody Martinez M.D. [id number] PH VENOUS 7.35 Normal 7.32-7.42 [facility] Comment on above: Performed By: #### 4 8717 #### LAB [address] [address] Moody Martinez M.D. [id number] PO2 VENOUS 68 mm Hg High 25-40 [facility] Comment on above: Performed By: #### 4 8717 #### LAB [address] [address] Moody Martinez M.D. [id number] RESP RATE RAD 14 [facility] Comment on above: Performed By: #### 4 8717 #### LAB [address] [address] Moody Martinez M.D. [id number] SPECIMEN SOURCE RADIANCE Not specified [facility] Comment on above: Performed By: #### 4 8717 ####[facility] [address] [address] Moody Martinez M.D. [id number] BASE EXCESS, VENOUS -5.9 Low -2.0-2.0 [facility] Comment on above: Performed By: #### 4 8717 ####[facility] LAB [address] [address] Moody Martinez M.D. [id number] HCO3 (Bld) [Moles/Vol] 20.5 mmol/L Low 24.0-28.0 [facility] Comment on above: Performed By: #### 4 8717 ####[facility] [address] [address] Moody Martinez M.D. [id number] Hematocrit (Bld) [Volume fraction] 42.0 % Normal 41.0-53.0 [facility] Comment on above: Performed By: #### 4 8717 ####[facility] [address] [address] Moody Martinez M.D. [id number] Hemoglobin (Bld) [Mass/Vol] 13.7 g/dL Normal 13.5-17.5 [facility] Comment on above: Performed By: #### 4 8717 ####[facility] [address] [address] Moody Martinez M.D. [id number] LITER FLOW 2 Normal [facility] Comment on above: Performed By: #### 4 8717 ####[facility] [address] [address] Moody Martinez M.D. [id number] Oxygen saturation in Blood 50.9 % Normal 40.0-70.0 [facility] Comment on above: Performed By: #### 4 8717 ####[facility] [address] [address] Moody Martinez M.D. [id number] PCO2 VENOUS 43.1 mm Hg Normal 41.0-51.0 [facility] Comment on above: Performed By: #### 4 8717 ####[facility] LAB [address] [place], [place] [address] Moody Martinez M.D. [id number] PH VENOUS 7.29 Low 7.32-7.42 [facility] Comment on above: Performed By: #### 4 8717 #### LAB [address] [place], [place] [address] Moody Martinez M.D. [id number] PO2 VENOUS 30 mm Hg Normal 25-40 [facility] Comment on above: Performed By: #### 4 8717 #### LAB [address] [place] [address] Moody Martinez M.D. [id number] SPECIMEN SOURCE RADIANCE Not specified Normal [facility] Comment on above: Performed By: #### 4 8717 #### LAB [address] [place] [address] Moody Martinez M.D. [id number] PROCALCITONINon 02-28-2025 PROCALCITONIN 0.18 ng/ml Normal <0.50 [facility] Comment on above: Order Comment: Resul ts <0.50 ng/ml represent a low risk of severe sepsis and/or septic shock. Performed By: #### 4 6932 #### LAB [address] [place] [address] Moody Martinez M.D. [id number] REFLEX LACTIC ACID, PLASMAon 02-28-2025 LACTIC ACID, PLASMA 2.0 mmol/L Normal 0.6-2.0 [facility] Comment on above: Performed By: #### 4 4014 #### LAB [address] [place] [address] Moody Martinez M.D. [id number] LACTIC ACID, PLASMA 3.5 mmol/L High 0.6-2.0 [facility] Comment on above: Performed By: #### L [id number] #### LAB [address] [place] [address] Moody Martinez M.D. [id number] RESPIRATORY PCR PANELon 02-01 RESPIRATORY PCR PANEL [...] SARS-COV-2 (BIOFIRE) Not Detected Normal Not Detected [facility] Comment on above: Performed By: #### L [id number] ####[facility] [address] [place] [address] Jose Cisse M.D. [id number] S.PNEUMONIAE URINE ANTIGENon 02-28-2025 S.PNEUMONIAE URINE ANTIGEN STREP PNEUMONIAE ANTIGEN, URINE Presumptive Negative for Pneumococcal pneumoniae A negative result does not rule out Streptococcus pneumoniae infection since the antigen present in the sample may be below the detection limit of the test. [facility] Comment on above: Performed By: #### 4 7222 #### LAB [address] [place], [place] [address] Moody Martinez M.D. [id number] SEDIMENTATION RATEon 025 SEDIMENTATION RATE, ERYTHROCYTE 16 mm/hr Normal 0-20 [facility] Comment on above: Performed By: #### 4 6477 #### LAB [address] [place] [address] Moody Martinez M.D. [id number] TROPONIN X 2 (NOW AND REPEAT IN 2 HOURS)on 02-28-2025 TROPONIN T DELTA % NG/L 176 % Off scale high <2 0% of Baseline Troponin [facility] Comment on above: Performed By: #### 4 6608 #### LAB [address] [place] [address] Moody Martinez M.D. [id number] TROPONIN T DELTA CHANGE INTERPRETATION Probable acute injury or myocardial infarction. [facility] Comment on above: Performed By: #### 4 6608 #### LAB [address] [place] [address] Moody Martinez M.D. [id number] TROPONIN T NG/L 207 ng/L Off scale high <=22 [facility] Comment on above: Performed By: #### 4 6608 #### LAB [address] [place] [address] Moody Martinez M.D. [id number] BASELINE TROPONIN T NG/L 75 ng/L Off scale high <=22 [facility] Comment on above: Performed By: #### 4 4014 #### LAB [address] [place] [address] Moody Martinez M.D. [id number] TROPONIN T INTERPRETATION Possible acute cardiac injury. Normal [facility] Comment on above: Performed By: #### 4 4014 #### LAB [address] [place] [address] Moody Martinez M.D. [id number] TSH WITH REFLEX FREE T4on TSH Qn 0.61 m[IU]/L Normal 0.27-4.20 [facility] Comment on above: Performed By: #### 4 6612 #### LAB [address] [place] [address] Moody Martinez M.D. [id number] URINALYSISon 02-28-2025 BACTERIA, URINE None Seen Normal None Seen [facility] Comment on above: Order Comment: Micro scopic examination is performed on all urinalysis samples and only positive findings are reported. The test for blood on the chemical analytic portion of urinalysis may also be positive due to hemoglobinuria and myoglobinuria and if red blood cells are present they are quantified by microscopic examination. Performed By: #### 4 6625 #### LAB [address] [place] [address] Moody Martinez M.D. [id number] BILIRUBIN, URINE Negative Normal Negative [facility] Comment on above: Order Comment: Micro scopic examination is performed on all urinalysis samples and only positive findings are reported. The test for blood on the chemical analytic portion of urinalysis may also be positive due to hemoglobinuria and myoglobinuria and if red blood cells are present they are quantified by microscopic examination. Performed By: #### 4 6625 #### LAB [address] [id number] Moody Martinez M.D. [id number] BLOOD, URINE Negative Normal Negative [facility] Comment on above: Order Comment: Micro scopic examination is performed on all urinalysis samples and only positive findings are reported. The test for blood on the chemical analytic portion of urinalysis may also be positive due to hemoglobinuria and myoglobinuria and if red blood cells are present they are quantified by microscopic examination. Performed By: #### 4 6625 #### LAB [address] [address] Moody Martinez M.D. [id number] Clarity (U) Clear Normal Clear [facility] Comment on above: Order Comment: Micro scopic examination is performed on all urinalysis samples and only positive findings are reported. The test for blood on the chemical analytic portion of urinalysis may also be positive due to hemoglobinuria and myoglobinuria and if red blood cells are present they are quantified by microscopic examination. Performed By: #### 4 6625 #### LAB [address] [address] Moody Martinez M.D. [id number] Color (U) Yellow Normal Colorless, Yellow [facility] Comment on above: Order Comment: Micro scopic examination is performed on all urinalysis samples and only positive findings are reported. The test for blood on the chemical analytic portion of urinalysis may also be positive due to hemoglobinuria and myoglobinuria and if red blood cells are present they are quantified by microscopic examination. Performed By: #### 4 6625 #### LAB [address] [address] Moody Martinez M.D. [id number] Glucose Ql (U) >=500 Abnormal Negative [facility] Comment on above: Order Comment: Micro scopic examination is performed on all urinalysis samples and only positive findings are reported. The test for blood on the chemical analytic portion of urinalysis may also be positive due to hemoglobinuria and myoglobinuria and if red blood cells are present they are quantified by microscopic examination. Performed By: #### 4 6625 #### LAB [address] [address] Moody Martinez M.D. [id number] Hyaline casts LM Ql (Urine sed) 3-5 Abnormal 0-2 [facility] Comment on above: Order Comment: Micro scopic examination is performed on all urinalysis samples and only positive findings are reported. The test for blood on the chemical analytic portion of urinalysis may also be positive due to hemoglobinuria and myoglobinuria and if red blood cells are present they are quantified by microscopic examination. Performed By: #### 4 6625 #### LAB [address] [id number] Moody Martinez M.D. [id number] Ketones Ql (U) Trace Abnormal Negative [facility] Comment on above: Order Comment: Micro scopic examination is performed on all urinalysis samples and only positive findings are reported. The test for blood on the chemical analytic portion of urinalysis may also be positive due to hemoglobinuria and myoglobinuria and if red blood cells are present they are quantified by microscopic examination. Performed By: #### 4 6625 #### LAB [address] [address] Moody Martinez M.D. [id number] Leukocyte esterase Test strip Ql (U) Negative Normal Negative [facility] Comment on above: Order Comment: Micro scopic examination is performed on all urinalysis samples and only positive findings are reported. The test for blood on the chemical analytic portion of urinalysis may also be positive due to hemoglobinuria and myoglobinuria and if red blood cells are present they are quantified by microscopic examination. Performed By: #### 4 6625 #### LAB [address] [address] Moody Martinez M.D. [id number] MUCUS, URINE Rare Normal None Seen, Rare [facility] Comment on above: Order Comment: Micro scopic examination is performed on all urinalysis samples and only positive findings are reported. The test for blood on the chemical analytic portion of urinalysis may also be positive due to hemoglobinuria and myoglobinuria and if red blood cells are present they are quantified by microscopic examination. Performed By: #### 4 6625 #### LAB [address] [address] Moody Martinez M.D. [id number] NITRITE, URINE Negative Normal Negative [facility] Comment on above: Order Comment: Micro scopic examination is performed on all urinalysis samples and only positive findings are reported. The test for blood on the chemical analytic portion of urinalysis may also be positive due to hemoglobinuria and myoglobinuria and if red blood cells are present they are quantified by microscopic examination. Performed By: #### 4 6625 #### LAB [address] [address] Moody Martinez M.D. [id number] pH (U) 5.5 [pH] Normal 5.0-7.0 [facility] Comment on above: Order Comment: Micro scopic examination is performed on all urinalysis samples and only positive findings are reported. The test for blood on the chemical analytic portion of urinalysis may also be positive due to hemoglobinuria and myoglobinuria and if red blood cells are present they are quantified by microscopic examination. Performed By: #### 4 6625 #### LAB [address] [address] Moody Martinez M.D. [id number] PROTEIN, URINE Negative Normal Negative [facility] Comment on above: Order Comment: Micro scopic examination is performed on all urinalysis samples and only positive findings are reported. The test for blood on the chemical analytic portion of urinalysis may also be positive due to hemoglobinuria and myoglobinuria and if red blood cells are present they are quantified by microscopic examination. Performed By: #### 4 6625 #### LAB [address] [address] Moody Martinez M.D. [id number] RBC LM.HPF (Urine sed) [#/Area] 1 /[HPF] Normal 0-3 [facility] Comment on above: Order Comment: Micro scopic examination is performed on all urinalysis samples and only positive findings are reported. The test for blood on the chemical analytic portion of urinalysis may also be positive due to hemoglobinuria and myoglobinuria and if red blood cells are present they are quantified by microscopic examination. Performed By: #### 4 6625 #### LAB [address] [id number] Moody Martinez M.D. [id number] Specific gravity (U) [Rel density] 1.012 Normal 1.005-1.025 [facility] Comment on above: Order Comment: Micro scopic examination is performed on all urinalysis samples and only positive findings are reported. The test for blood on the chemical analytic portion of urinalysis may also be positive due to hemoglobinuria and myoglobinuria and if red blood cells are present they are quantified by microscopic examination. Performed By: #### 4 6625 #### LAB [address] [address] Moody Martinez M.D. [id number] UROBILINOGEN, URINE <2.0 Normal <2.0 [facility] Comment on above: Order Comment: Micro scopic examination is performed on all urinalysis samples and only positive findings are reported. The test for blood on the chemical analytic portion of urinalysis may also be positive due to hemoglobinuria and myoglobinuria and if red blood cells are present they are quantified by microscopic examination. Performed By: #### 4 6625 #### LAB [address] [address] Moody Martinez M.D. [id number] WBC LM.HPF (Urine sed) [#/Area] 1 /[HPF] Normal 0-5 [facility] Comment on above: Order Comment: Micro scopic examination is performed on all urinalysis samples and only positive findings are reported. The test for blood on the chemical analytic portion of urinalysis may also be positive due to hemoglobinuria and myoglobinuria and if red blood cells are present they are quantified by microscopic examination. Performed By: #### 4 6625 #### LAB [address] [address] Mooyd Martinez M.D. [id number] URINE AEROBIC CULTUREon - URINE AEROBIC CULTURE URINE CULTURE < 10,000 CFU/mL of normal urogenital microbiota Normal [facility] Comment on above: Performed By: #### 4 4053 ####[facility] [address] [place] [address] Jose Cisse M.D. [id number] XR CHEST PA/APon 02-28-2025 XR CHEST PA/AP [...] on WedFeb 28, 2025 4:00:36 AM EDT [facility] Comment on above: Order Comment: Injur [...] established Performed By: #### 6 517, 7909, 46290 #### [facility] of [address], [address] [place] [address] [employer]: Jadon Velez MD ALBUMIN/CREATININE RATIO, RANDOM URINE [...] category. Performed By: #### 6 517, 7909, 58513 #### [facility] [address] [address] [employer]: Jadon Velez MD Creatinine (U) [Mass/Vol] 57 mg/dL Normal 20-320 [facility] Comment on above: Performed By: #### 6 517, 7909, 52149 #### [facility] [address] [place] [address] [employer]: Jadon Velez MD COMPREHENSIVE METABOLIC PANE [facility] 02-13-2025 Albumin [Mass/Vol] 4.3 g/dL Normal 3.6-5.1 [facility] Comment on above: Performed By: #### 8 66, 7600, 496, 43213, 65428 #### [facility] [address] [place] [address] [employer]: Jadon Velez MD Albumin/Globulin [Mass ratio] 1.7 {ratio} Normal 1.0-2.5 [facility] Comment on above: Performed By: #### 8 66, 7600, 496, 59898, 82610 #### [facility] of [address] [place] [address] [employer]: Jadon Velez MD ALP [Catalytic activity/Vol] 61 U/L Normal 35-144 [facility] Comment on above: Performed By: #### 8 66, 7600, 496, 26797, 16754 #### [facility] [address] [place] [address] [employer]: Jadon Velez MD ALT [Catalytic activity/Vol] 12 U/L Normal 9-46 [facility] Comment on above: Performed By: #### 8 66, 7600, 496, 63726, 21362 #### [facility] of [address] [place] [address] [employer]: Jadon Velez MD AST [Catalytic activity/Vol] 16 U/L Normal 10-35 [facility] Comment on above: Performed By: #### 8 66, 7600, 496, 42668, 89795 #### [facility] of [address] [place] [address] [employer]: Jadon Velez MD Bilirubin [Mass/Vol] 0.5 mg/dL Normal 0.2-1.2 [facility] Comment on above: Performed By: #### 8 66, 7600, 496, 44546, 95326 #### [facility] of [address] [place] [address] [employer]: Jadon Velez MD Calcium [Mass/Vol] 9.3 mg/dL Normal 8.6-10.3 [facility] Comment on above: Performed By: #### 8 66, 7600, 496, 93130, 58873 #### [facility] of [address] [place] [address] [employer]: Jadon Velez MD Chloride [Moles/Vol] 102 mmol/L Normal 98-110 [facility] Comment on above: Performed By: #### 8 66, 7600, 496, 53495, 44239 #### [facility] of [address] [place] [address] [employer]: Jadon Velez MD CO2 [Moles/Vol] 28 mmol/L Normal 20-32 [facility] Comment on above: Performed By: #### 8 66, 7600, 496, 92267, 82513 #### [facility] of [address] [place] [address] [employer]: Jadon Velez MD Creatinine [Mass/Vol] 1.76 mg/dL High 0.70-1.[address] [facility] Comment on above: Performed By: #### 8 66, 7600, 496, 50311, 17496 #### [facility] [address] [place] [address] [employer]: Jadon Velez MD GFR/1.73 sq M.predicted among non-blacks MDRD (S/P/Bld) [Vol rate/Area] 38 mL/min/{1.73_m2} Low > OR = 60 [facility] Comment on above: Performed By: #### 8 66, 7600, 496, 03956, 96648 #### [facility] [address] [place] [address] [employer]: Jadon Velez MD Globulin (S) [Mass/Vol] 2.6 g/dL Normal 1.9-3.7 [facility] Comment on above: Performed By: #### 8 66, 7600, 496, 24696, 31542 #### [facility] [address] [place] [address] [employer]: Jadon Velez MD Glucose [Mass/Vol] 242 mg/dL High 65-99 [facility] Comment on above: Result Comment: Fasting reference interval For someone without known diabetes, a glucose value >125 mg/dL indicates that they may have diabetes and this should be confirmed with a follow-up test. Performed By: #### 8 66, 7600, 496, 38999, 64430 #### [facility] [address] [place] [address] [employer]: Jadon Velez MD Potassium [Moles/Vol] 4.6 mmol/L Normal 3.5-5.[address] [facility] Comment on above: Performed By: #### 8 66, 7600, 496, 50585, 56061 #### [facility] [address] [place] [address] [employer]: Jadon Velez MD Protein [Mass/Vol] 6.9 g/dL Normal 6.1-8.1 [facility] Comment on above: Performed By: #### 8 66, 7600, 496, 41843, 04947 #### [facility] of [address] [place] [address] [employer]: Jadon Velez MD Sodium [Moles/Vol] 140 mmol/L Normal 135-146 [facility] Comment on above: Performed By: #### 8 66, 7600, 496, 95105, 56583 #### [facility] of [place] [address] [employer]: Jadon Velez MD Urea nitrogen [Mass/Vol] 38 mg/dL High 7-25 [facility] Comment on above: Performed By: #### 8 66, 7600, 496, 42143, 55225 #### [facility] of [place] [address] [employer]: Jadon Velez MD Urea nitrogen/Creatinine [Mass ratio] 22 mg/mg Normal 6-22 [facility] Comment on above: Performed By: #### 8 66, 7600, 496, 37716, 53898 #### [facility] of [address] [place] [address] [employer]: Jadno Velez MD COMPREHENSIVE METABOLIC PANE L W/ANION GAPon 02-13-2025 Albumin [Mass/Vol] 4.3 g/dL Normal 3.6-5.1 [facility] Comment on above: Performed By: #### 9 2498 #### [facility] of [place] [address] [employer]: Jadon Velez MD ALP [Catalytic activity/Vol] 60 U/L Normal 35-144 [facility] Comment on above: Performed By: #### 9 0718 #### [facility] of [place] [address] [employer]: Jadon Velez MD ALT [Catalytic activity/Vol] 11 U/L Normal 9-46 [facility] Comment on above: Performed By: #### 9 2498 #### [facility] of [address] [place] [address] [employer]: Jadon Velez MD AST [Catalytic activity/Vol] 15 U/L Normal 10-35 [facility] Comment on above: Performed By: #### 9 2498 #### [facility] of [place] [address] [employer]: Jadon Velez MD Bilirubin [Mass/Vol] 0.5 mg/dL Normal 0.2-1.2 [facility] Comment on above: Performed By: #### 9 2498 #### [facility] [place] [address] [employer]: Jadon Velez MD Calcium [Mass/Vol] 9.3 mg/dL Normal 8.6-10.3 [facility] Comment on above: Performed By: #### 9 2498 #### [facility] [place] [address] [employer]: Jadon Velez MD Chloride [Moles/Vol] 102 mmol/L Normal 98-110 [facility] Comment on above: Performed By: #### 9 2498 #### [facility] of [place] [address] [employer]: Jadon Velez MD CO2 [Moles/Vol] 28 mmol/L Normal 20-32 [facility] Comment on above: Performed By: #### 9 2498 #### [facility] of [place] [address] [employer]: Jadon Velez MD Creatinine [Mass/Vol] 1.80 mg/dL High 0.70-1.[address] [facility] Comment on above: Performed By: #### 9 2498 #### [facility] of [place] [address] [employer]: Jadon Velez MD ELECTROLYTE BALANCE 10 mmol/L (calc) Normal 7-17 [facility] Comment on above: Performed By: #### 9 2498 #### [facility] [address] [place] [address] [employer]: Jadon Velez MD GFR/1.73 sq M.predicted among non-blacks MDRD (S/P/Bld) [Vol rate/Area] 37 mL/min/{1.73_m2} Low > OR = 60 [facility] Comment on above: Performed By: #### 9 2498 #### [facility] of [place] [address] [employer]: Jadon Velez MD Glucose [Mass/Vol] 241 mg/dL High 65-99 [facility] Comment on above: Result Comment: Fasting reference interval For someone without known diabetes, a glucose value >125 mg/dL indicates that they may have diabetes and this should be confirmed with a follow-up test. Performed By: #### 9 2498 #### [facility] [address] [place] [address] [employer]: Jadon Velez MD Potassium [Moles/Vol] 4.7 mmol/L Normal 3.5-5.3 [facility] Comment on above: Performed By: #### 9 2498 #### [facility] [address] [place] [address] [employer]: Jadon Velez MD Protein [Mass/Vol] 6.7 g/dL Normal 6.1-8.1 [facility] Comment on above: Performed By: #### 9 2498 #### [facility] [place] [address] [employer]: Jadon Velez MD Sodium [Moles/Vol] 140 mmol/L Normal 135-146 [facility] Comment on above: Performed By: #### 9 2498 #### [facility] of [place] [address] [employer]: Jadon Velez MD Urea nitrogen [Mass/Vol] 38 mg/dL High 7-25 [facility] Comment on above: Performed By: #### 9 2498 #### [facility] [address], [address] [place] [address] [employer]: Jadon Velez MD Comprehensive metabolic 2000 panelon 02-13-2025 Albumin [Mass/Vol] 4.3 g/dL 3.6 - 5.1 g/dL [facility] Albumin/Globulin [Mass ratio] 1.7 {ratio} [facility] ALP [Catalytic activity/Vol] 61 U/L 35 - 144 U/L [facility] ALT [Catalytic activity/Vol] 12 U/L 9 - 46 U/L [facility] AST [Catalytic activity/Vol] 16 U/L 10 - 35 U/L [facility] Bilirubin [Mass/Vol] 0.5 mg/dL 0.2 - 1 .2 mg/dL [facility] Calcium [Mass/Vol] 9.3 mg/dL 8.6 - 10. 3 mg/dL [facility] Chloride [Moles/Vol] 102 mmol/L 98 - 11 0 mmol/L [facility] CO2 [Moles/Vol] 28 mmol/L 20 - 32 mmol/L [facility] Creatinine [Mass/Vol] 1.76 mg/dL High 0.70 - 1.22 mg/dL [facility] GFR/1.73 sq M.predicted among non-blacks MDRD (S/P/Bld) [Vol rate/Area] 38 mL/min/{1.73_m2} Low > OR = 60 mL/min/1.73m2 [facility] Globulin (S) [Mass/Vol] 2.6 g/[facility] Glucose [Mass/Vol] 242 mg/dL High 65 - 99 mg/dL [facility] Comment on above: Fasting reference interval For someone without known diabetes, a glucose value >125 mg/dL indicates that they may have diabetes and this should be confirmed with a follow-up test. Interpretation and review of laboratory results Abnormal [facility] Potassium [Moles/Vol] 4.6 mmol/L 3.5 - 5.3 mmol/L [facility] Protein [Mass/Vol] 6.9 g/dL 6.1 - 8.1 g/dL [facility] Sodium [Moles/Vol] 140 mmol/L 135 - 146 mmol/L [facility] Urea nitrogen [Mass/Vol] 38 mg/dL High 7 - 25 mg/d L [facility] Urea nitrogen/Creatinine [Mass ratio] 22 mg/mg [facility] HEMOGLOBIN A1con 02-13-2025 HbA1c (Bld) [Mass [...] for children. Performed By: #### 8 66, 1820, 496, 08129, 80533 #### [facility] [address], [address] [place] [id number] [employer]: Jadon Velez MD HbA1c (Bld) [Mass fraction]o n 02-13-2025 Interpretation and review of laboratory results Abnormal [facility] Hemoglobin A1con 02-13-2025 HbA1c (Bld) [Mass fraction] 7.4 % High NINF - 5.7 % [facility] Comment on above: For someone without [...] Performed By: #### 8 66, 7600, 496, 73254, 88983 #### [facility] [address], [address] [place] [address] [employer]: Jadon Velez MD Cholesterol in HDL [Mass/Vol] 57 mg/dL Normal > OR = 40 [facility] Comment on above: Performed By: #### 8 66, 7600, 496, 60898, 88858 #### [facility] [place] [address] [employer]: Jadon Velez MD Cholesterol in LDL [Mass/Vol] [...] Ramon SS et al. ANA LAURA. 2013;310(19): 7558-6850 (http://education.CanWeNetwork.Lánzanos/faq/MLH706) Performed By: #### 8 66, 7600, 496, 20594, 57102 #### [facility] [place] [address] [employer]: Jadon Velez MD Cholesterol.total/Cholest santos in HDL [Mass ratio] 2.6 {ratio} Normal <5.0 [facility] Comment on above: Performed By: #### 8 66, 7600, 496, 71627, 52254 #### [facility] [place] [address] [employer]: Jadon Velez MD NON HDL CHOLESTEROL 91 mg/dL (calc) Normal <130 [facility] Comment on above: Result Comment: For patients with diabetes plus 1 major ASCVD risk factor, treating to a non-HDL-C goal of <100 mg/dL (LDL-C of <70 mg/dL) is considered a therapeutic option. Performed By: #### 8 66, 7600, 496, 50375, 02329 #### [facility] [place] [address] [employer]: Jadon Velez MD Triglyceride [Mass/Vol] 85 mg/dL Normal <150 [facility] Comment on above: Performed By: #### 8 66, 7600, 496, 98994, 07881 #### [facility] [address] [facility], [address] [place] [address] [employer]: Jadon Velez MD Lipid 1996 panelon Cholesterol [Mass/Vol] 148 mg/dL [facility] - 200 mg/dL [facility] Cholesterol in HDL [Mass/Vol] 57 mg/dL > OR = 40 [facility] Cholesterol in LDL [Mass/Vol] 74 mg/dL mg/dL (calc) [facility] Comment on above: Reference range: <10 [...] Ramon SORIA et al. ANA LAURA. 2013;310(19): 0156-1513 (http://education.CanWeNetwork.Lánzanos/faq/NRE591) Cholesterol non HDL [Mass/Vol] 91 mg/dL [facility] Comment on above: For patients with di abetes plus 1 major ASCVD risk factor, treating to a non-HDL-C goal of <100 mg/dL (LDL-C of <70 mg/dL) is considered a therapeutic option. Cholesterol.total/Cholest santos in HDL [Mass ratio] 2.6 {ratio} [facility] Triglyceride [Mass/Vol] 85 mg/dL [facility] - 150 mg/dL [facility] NOTEon 02-13-2025 NOTE Normal [facility] Comment on above: Result Comment: This urine was analyzed for the presence of WBC, RBC, bacteria, casts, and other formed elements. Only those elements seen were reported. Performed By: #### 9 2498 #### [facility] [address] [facility], [address] [place] [address] [employer]: Jadon Velez MD No Panel Informationon 02-13 [facility] T4, FREEon 02-13-2025 Free T4 [Mass/Vol] 1.4 ng/dL Normal 0.8-1.8 [facility] Comment on above: Performed By: #### 8 66, 7600, 496, 69653, 51115 #### [facility] of [place] [address] [employer]: Jadon Velez MD TSH W/REFLEX TO FT4on 2024 TSH W/REFLEX TO FT4 0.36 mIU/L Low 0.40-4.50 [facility] Comment on above: Performed By: #### 8 66, 7600, 496, 65079, 61141 #### [facility] of [place] [address] [employer]: Jadon Velez MD URINALYSIS REFLEXon 02-14-20 25 Appearance (U) CLEAR Normal CLEAR [facility] Comment on above: Performed By: #### 9 2498 #### [facility] of [place] [address] [employer]: Jadon Velez MD BACTERIA NONE SEEN Normal NONE SEEN [facility] Comment on above: Performed By: #### 9 2498 #### [facility] of [place] [address] [employer]: Jadon Velez MD Bilirubin Ql (U) Negative Normal NEGATIVE [facility] Comment on above: Performed By: #### 9 2498 #### [facility] of [place] [address] [employer]: Jadon Velez MD Color (U) YELLOW Normal YELLOW [facility] Comment on above: Performed By: #### 9 1978 #### [facility] of [place] [address] [employer]: Jadon Velez MD Glucose Ql (U) Negative Normal NEGATIVE [facility] Comment on above: Performed By: #### 9 3808 #### [facility] of [place] [address] [employer]: Jadon Velez MD HYALINE CAST NONE SEEN Normal NONE SEEN [facility] Comment on above: Performed By: #### 9 7228 #### [facility] [place] [address] [place] [address] [employer]: Jadon Velez MD Ketones Ql (U) Negative Normal NEGATIVE [facility] Comment on above: Performed By: #### 9 2498 #### [facility] of [place] [address] [employer]: Jadon Velez MD Leukocyte esterase Test strip Ql (U) TRACE Abnormal NEGATIVE [facility] Comment on above: Performed By: #### 9 2498 #### [facility] [place] [address] [employer]: Jadon Velez MD Nitrite Ql (U) Negative Normal NEGATIVE [facility] Comment on above: Performed By: #### 9 2498 #### [facility] [place] [address] [employer]: Jadon Velez MD OCCULT BLOOD Negative Normal NEGATIVE [facility] Comment on above: Performed By: #### 9 2498 #### [facility] [place] [address] [place]: Jadon Velez MD pH (U) 6.0 [pH] Normal 5.0-8.0 [facility] Comment on above: Performed By: #### 9 2498 #### [facility] [place] [address] [place]: Jadon Velez MD Protein Ql (U) 1+ Abnormal NEGATIVE [facility] Comment on above: Performed By: #### 9 2498 #### [facility] [place] [address] [place]: Jadon Velez MD RBC NONE SEEN Normal < OR = 2 [facility] Comment on above: Performed By: #### 9 4743 #### [facility] [place] [address] [place]: Jadon Velez MD Specific gravity (U) [Rel density] 1.011 Normal 1.001-1.035 [facility] Comment on above: Performed By: #### 9 9508 #### [facility] [address], [address] [place] [address] [place]: Jadon Velez MD SQUAMOUS EPITHELIAL CELLS NONE SEEN Normal < OR = 5 [facility] Comment on above: Performed By: #### 9 2498 #### [facility] [address], [address] [place] [address] [place]: Jadon Velez MD WBC 0-5 Normal < OR = 5 [facility] Comment on above: Performed By: #### 9 2498 #### [facility] [address], [address] [place] [address] [place]: Jadon Velez MD Anion gap in Serum or Plasma Ordered By: Kerwin Tamayo on 02-06-2025 Anion gap [Moles/Vol] 12 mmol/L 5-15 [facility] BUN/creatinine ratioOrdered By: Kerwin Tamayo on 02-06-2025 Urea nitrogen/Creatinine [Mass ratio] 23.1 mg/mg High 10-20 [facility] Basic Metabolic Profile (BMP )on 02-06-2025 BUN/CRE 23.1 RATIO High 10-20 [facility] Comment on above: Performed By: #### L 500.2500, L100.0500 ####[facility] [address] [place], [address] Calcium [Mass/Vol] 9.1 mg/dL Normal 7.6-11.0 [facility] Comment on above: Performed By: #### L 500.2500, L100.0500 ####[facility] [address] [place], [address] Chloride [Moles/Vol] 103 mmol/L Normal 98-108 [facility] Comment on above: Performed By: #### L 500.2500, L100.0500 ####[facility] [address] [place], [address] CO2 [Moles/Vol] 23.7 mmol/L Normal 21.0-32.0 [facility] Comment on above: Performed By: #### L 500.2500, L100.0500 ####[facility] [address] [place], [address] Creatinine [Mass/Vol] 1.88 mg/dL High 0.70-1.20 [facility] Comment on above: Performed By: #### L 500.2500, L100.0500 ####[facility] [address] [place], [address] GAP 12 Normal 5-15 [facility] Comment on above: Performed By: #### L 500.2500, L100.0500 ####[facility] [address] [place], [address] GFR/1.73 sq M.predicted among non-blacks MDRD (S/P/Bld) [Vol rate/Area] 35 mL/min/{1.73_m2} Low >60 [facility] Comment on above: Result Comment: mL/m in/1.73m2 CKD-EPI Creatinine Equation (2020) Performed By: #### L 500.2500, L100.0500 ####[facility] [address] [place], [address] Glucose [Mass/Vol] 287 mg/dL High 70-99 [facility] Comment on above: Performed By: #### L 500.2500, L100.0500 ####[facility] [address] [place], [address] Potassium [Moles/Vol] 4.4 mmol/L Normal 3.3-5.1 [facility] Comment on above: Performed By: #### L 500.2500, L100.0500 ####[facility] [address] [place], [address] Sodium [Moles/Vol] 139 mmol/L Normal 133-145 [facility] Comment on above: Performed By: #### L 500.2500, L100.0500 ####[facility] [address] [place], [address] Urea nitrogen [Mass/Vol] 44 mg/dL High 4-19 [facility] Comment on above: Performed By: #### L 500.2500, L100.0500 ####[facility] [address] [place], [address] CBC-Complete Blood Cnt No Di ffon 02-06-2025 Erythrocyte distribution width (RBC) [Ratio] 13.0 % Normal 11.6-14.6 [facility] Comment on above: Performed By: #### L 500.2500, L100.0500 ####[facility] [address] [place], [address] Hematocrit (Bld) [Volume fraction] 33.8 % Low 40-54 [facility] Comment on above: Performed By: #### L 500.2500, L100.0500 ####[facility] [address] [place], [address] Hemoglobin (Bld) [Mass/Vol] 11.0 g/dL Low 13.0-16.5 [facility] Comment on above: Performed By: #### L 500.2500, L100.0500 ####[facility] [address] [place], [address] MCH (RBC) [Entitic mass] 31.0 pg Normal 27.0-32.0 [facility] Comment on above: Performed By: #### L 500.2500, L100.0500 ####[facility] [address] [place], [address] MCHC (RBC) [Mass/Vol] 32.5 g/dL Normal 32-36 [facility] Comment on above: Performed By: #### L 500.2500, L100.0500 ####[facility] [address] [place], [address] MCV (RBC) [Entitic vol] 95.2 fL High 80-94 [facility] Comment on above: Performed By: #### L 500.2500, L100.0500 ####[facility] [address] [place], [address] Platelet mean volume (Bld) [Entitic vol] 11.2 fL Normal 6.2-12.0 [facility] Comment on above: Performed By: #### L 500.2500, L100.0500 ####[facility] [address] [place], [address] Platelets (Bld) [#/Vol] 239 10*3/uL Normal 150-450 [facility] Comment on above: Performed By: #### L 500.2500, L100.0500 ####[facility] [address] [place], [address] RBC (Bld) [#/Vol] 3.55 10*6/uL Low 4.6-6.2 [facility] Comment on above: Performed By: #### L 500.2500, L100.0500 ####[facility] [address] [place], [address] RDW SD 45.3 fl High 35.1-43.9 [facility] Comment on above: Performed By: #### L 500.2500, L100.0500 ####[facility] [address] [place], [address] WBC (Bld) [#/Vol] 8.9 10*3/uL Normal 4.4-11.0 [facility] Comment on above: Performed By: #### L 500.2500, L100.0500 ####[facility] [address] [place], [address] Carbon dioxide, total [Moles /volume] in Central venous bloodOrdered By: Kerwin Tamayo on 02-06-2025 CO2 [Moles/Vol] 23.7 mmol/L 21.0-32.0 [facility] Chloride assayOrdered By: Daniela Tamayo on 02-06-2025 Chloride [Moles/Vol] 103 mmol/L 98-108 [facility] Erythrocyte distribution wid th (RBC) [Ratio]Ordered By: Kerwin Tamayo on 02-06-2025 Erythrocyte distribution width (RBC) [Entitic vol] 45.3 fL High 35.1-43.9 [facility] Erythrocyte distribution wid th ratioOrdered By: Kerwin Tamayo on 02-06-2025 Erythrocyte distribution width (RBC) [Ratio] 13.0 % 11.6-14.6 [facility] Erythrocyte distribution wid th standard deviationOrdered By: Kerwin Tamayo on 02-06-2025 Erythrocyte distribution width (RBC) [Ratio] 45.3 fl High 35.1-43.9 [facility] GFR/1.73 sq M.predicted park g non-blacks MDRD (S/P/Bld) [Vol rate/Area]Ordered By: Kerwin Tamayo on 02-06-2025 Estimated GFR (MDRD) Non-Af Amer 35 Low >60 [facility] Comment on above: mL/min/1.73m2 CKD-EP I Creatinine Equation (2020) Glomerular filtration rate ( GFR) estimation/1.73 sq m using serum, plasma, or whole bOrdered By: Kerwin Tamayo on 02-06-2025 GFR/1.73 sq M.predicted among non-blacks MDRD (S/P/Bld) [Vol rate/Area] 35 mL/min/{1.73_m2} Low >60 [facility] Comment on above: mL/min/1.73m2 CKD-EP I Creatinine Equation (2020) Hematocrit Auto (Bld) [Volum e fraction]Ordered By: Kerwin Tamayo on 02-06-2025 Hematocrit (Bld) [Volume fraction] 33.8 % Low 40-54 [facility] Hemoglobin measurementOrdere d By: Kerwin Tamayo on 02-06-2025 Hemoglobin (Bld) [Mass/Vol] 11.0 g/dL Low 13.0-16.5 [facility] MCV (mean corpuscular volume ) determinationOrdered By: Kerwin Tamayo on 02-06-2025 MCV (RBC) [Entitic vol] 95.2 fL High 80-94 [facility] Mean corpuscular hemoglobin (MCH) determinationOrdered By: Kerwin Tamayo on 02-06-2025 MCH (RBC) [Entitic mass] 31.0 pg 27.0-32.0 [facility] Mean corpuscular hemoglobin concentration (MCHC) determinationOrdered By: Kerwin Tamayo on 02-06-2025 MCHC (RBC) [Mass/Vol] 32.5 g/dL 32-36 [facility] Mean platelet volume determi nationOrdered By: Kerwin Tamayo on 02-06-2025 Platelet mean volume (Bld) [Entitic vol] 11.2 fL 6.2-12.0 [facility] Platelet countOrdered By: Daniela Tamayo on 02-06-2025 Platelets (Bld) [#/Vol] 239 10*3/uL 150-450 [facility] Potassium (Unsp spec) [Mass/ Vol]Ordered By: Kerwin Tamayo on 02-06-2025 Potassium [Moles/Vol] 4.4 mmol/L 3.3-5.1 [facility] Potassium measurement (mass/ volume)Ordered By: Kerwin Tamayo on 02-06-2025 Potassium (Unsp spec) [Mass/Vol] 4.4 mmol/L 3.3-5.1 [facility] RBC Auto (Bld) [#/Vol]Ordere d By: Kerwin Tamayo on 02-06-2025 RBC (Bld) [#/Vol] 3.55 10*6/uL Low 4.6-6.2 [facility] Serum creatinine measurement (mass/volume)Ordered By: Kerwin Tamayo on 02-06-2025 Creatinine [Mass/Vol] 1.88 mg/dL High 0.70-1.20 [facility] Serum glucose measurement (m ass/volume)Ordered By: Kerwin Tamayo on 02-06-2025 Glucose [Mass/Vol] 287 mg/dL High 70-99 [facility] Serum or plasma calcium nikkie urement (mass/volume)Ordered By: Kerwin Tamayo on 02-06-2025 Calcium [Mass/Vol] 9.1 mg/dL 7.6-11.0 [facility] Serum or plasma urea nitroge n measurement (mass/volume)Ordered By: Kerwin Tamayo on 02-06-2025 Urea nitrogen [Mass/Vol] 44 mg/dL High 4-19 [facility] Sodium levelOrdered By: Aaron Tamayo on 02-06-2025 Sodium [Moles/Vol] 139 mmol/L 133-145 [facility] White blood cell (WBC) count Ordered By: Kerwin Tamayo on 02-06-2025 WBC (Bld) [#/Vol] 8.9 10*3/uL 4.4-11.0 [facility] CBC W Auto Differential pane l (Bld)on 11-06-2024 Basophils (Bld) [#/Vol] 0.08 x10*3/uL Normal 0.00-0.10 [facility] Comment on above: Performed By: #### 5 7021-8 #### MAGGI PARNELL ([id number]) [facility] ([facility]) [address] [place] [address] Basophils/100 WBC (Bld) 0.8 % Normal 0.0-2.0 [facility] Comment on above: Performed By: #### 5 7021-8 #### MAGGI PARNELL ([id number]) [facility] ([facility]) [address] [place] [address] Eosinophils (Bld) [#/Vol] 0.42 x10*3/uL High 0.00-0. 40 [facility] Comment on above: Performed By: #### 5 7021-8 #### MAGGI PARNELL ([id number]) [facility] ([facility]) [address] [place] [address]94 Eosinophils/100 WBC (Bld) 4.4 % Normal 0.0-6.0 [facility] Comment on above: Performed By: #### 5 7021-8 #### MAGGI PARNELL ([id number]) [facility] ([facility]) [address] [place] [address]71 Erythrocyte distribution width (RBC) [Ratio] 14.5 % Normal 11.5-14.5 [facility] Comment on above: Performed By: #### 5 7021-8 #### MAGGI PARNELL ([id number]) [facility] ([facility]) [address] [place], [place] [address] Hematocrit (Bld) [Volume fraction] 34.5 % Low 41.0-52.0 [facility] Comment on above: Performed By: #### 5 7021-8 #### MAGGI PARNELL ([id number]) [facility] ([facility]) [address] [place] [address] Hemoglobin (Bld) [Mass/Vol] 10.6 g/dL Low 13.5-17.5 [facility] Comment on above: Performed By: #### 5 7021-8 #### MAGGI PARNELL ([id number]) [facility] ([facility]) [address] [place] [address] Immature granulocytes (Bld) [#/Vol] 0.03 x10*3/uL Normal 0.00-0.50 [facility] Comment on above: Performed By: #### 5 7021-8 #### MAGGI PARNELL ([id number]) [facility] ([facility]) [address] [place] [address] Immature granulocytes/100 WBC (Bld) 0.3 % Normal 0.0-0.9 [facility] Comment on above: Result Comment: Arielle ture Granulocyte Count (IG) includes promyelocytes, myelocytes and metamyelocytes but does not include bands. Percent differential counts (%) should be interpreted in the context of the absolute cell counts (cells/UL). Performed By: #### 5 7021-8 #### MAGGI PARNELL ([id number]) [facility] ([facility]) [address] [place] [address] Lymphocytes (Bld) [#/Vol] 2.35 x10*3/uL Normal 0.80-3. 00 [facility] Comment on above: Performed By: #### 5 7021-8 #### MAGGI PARNELL ([id number]) [facility] ([facility]) [address] [place] [address]180 Lymphocytes/100 WBC (Bld) 24.5 % Normal 13.0-44.0 [facility] Comment on above: Performed By: #### 5 7021-8 #### MAGGI PARNELL ([id number]) [facility] ([facility]) [address] [place] [address]15 MCH (RBC) [Entitic mass] 30.3 pg Normal 26.0-34.0 [facility] Comment on above: Performed By: #### 5 7021-8 #### MAGGI PARNELL ([id number]) [facility] ([facility]) [address] [place] [address] MCHC (RBC) [Mass/Vol] 30.7 g/dL Low 32.0-36.0 [facility] Comment on above: Performed By: #### 5 7021-8 #### MAGGI PARNELL ([id number]) [facility] ([facility]) [address] [place] [address] MCV (RBC) [Entitic vol] 99 fL Normal 80-100 [facility] Comment on above: Performed By: #### 5 7021-8 #### MAGGI PARNELL ([id number]) [facility] ([facility]) [address] [place] [address] Monocytes (Bld) [#/Vol] 0.82 x10*3/uL High 0.05-0.80 [facility] Comment on above: Performed By: #### 5 7021-8 #### MAGGI PARNELL ([id number]) [facility] ([facility]) [address] [place] [address] 52090 Monocytes/100 WBC (Bld) 8.6 % Normal 2.0-10.0 [facility] Comment on above: Performed By: #### 5 7021-8 #### MAGGI PARNELL ([id number]) [facility] ([facility]) [address] [place] [address]876 Neutrophils (Bld) [#/Vol] 5.89 x10*3/uL High 1.60-5. 50 [facility] Comment on above: Result Comment: Perc ent differential counts (%) should be interpreted in the context of the absolute cell counts (cells/uL). Performed By: #### 5 7021-8 #### MAGGI PARNELL ([id number]) [facility] ([facility]) [address] [place] [address]146 Neutrophils/100 WBC (Bld) 61.4 % Normal 40.0-80.0 [facility] Comment on above: Performed By: #### 5 7021-8 #### MAGGI PARNELL ([id number]) [facility] ([facility]) [address] [place] [address] 18177 Nucleated RBC/100 WBC (Bld) [Ratio] 0.0 /100 WBCs Normal 0.0-0.0 [facility] Comment on above: Performed By: #### 5 7021-8 #### MAGGI PARNELL ([id number]) [facility] ([facility]) [address] [place] [address] 29601 Platelets (Bld) [#/Vol] 229 x10*3/uL Normal 150-450 [facility] Comment on above: Performed By: #### 5 7021-8 #### MAGGI PARNELL ([id number]) [facility] ([facility]) [address] [place] [address] 90235 RBC (Bld) [#/Vol] 3.50 x10*6/uL Low 4.50-5.90 [facility] Comment on above: Performed By: #### 5 7021-8 #### MAGGI PARNELL ([id number]) [facility] ([facility]) [address] [place] [address]246 WBC (Bld) [#/Vol] 9.6 x10*3/uL Normal 4.4-11.3 [facility] Comment on above: Performed By: #### 5 7021-8 #### MAGGI PARNELL ([id number]) [facility] ([facility]) [address] [place] [address] Comprehensive metabolic 2000 panelon 11-06-2024 Albumin BCP dye [Mass/Vol] 3.7 g/dL Normal 3.4-5.0 [facility] Comment on above: Performed By: #### 1 4959-1 #### ALENA Paredes ([id number]) [facility] ([facility]) [address] [place] [address]4094 ALP [Catalytic activity/Vol] 68 U/L Normal 33-136 [facility] Comment on above: Performed By: #### 1 4959-1 #### ALENA Paredes ([id number]) [facility] ([facility]) [address] [place] [address] 18679 ALT With P-5'-P [Catalytic activity/Vol] 19 U/L Normal 10-52 [facility] Comment on above: Result Comment: Twila ents treated with Sulfasalazine may generate falsely decreased results for ALT. Performed By: #### 1 4959-1 #### ALENA CORREA L ([id number]) [facility] ([facility]) [address] [place] [address] 19881 Anion gap [Moles/Vol] 12 mmol/L Normal 10-20 [facility] Comment on above: Performed By: #### 1 4959-1 #### ALENA Paredes ([id number]) [facility] ([facility]) [address] [place] [address] 59651 AST With P-5'-P [Catalytic activity/Vol] 19 U/L Normal 9-39 [facility] Comment on above: Performed By: #### 1 4959-1 #### ALENA CORREA L ([id number]) [facility] ([facility]) [address] [place] [address] 86113 Bilirubin [Mass/Vol] 0.3 mg/dL Normal 0.0-1.2 [facility] Comment on above: Performed By: #### 1 4959-1 #### ALENA CORREA L ([id number]) [facility] ([facility]) [address] [place] [address] Calcium [Mass/Vol] 8.9 mg/dL Normal 8.6-10.3 [facility] Comment on above: Performed By: #### 1 4959-1 #### ALENA Paredes ([id number]) [facility] ([facility]) [address] [place] [address] Chloride [Moles/Vol] 108 mmol/L High 98-107 [facility] Comment on above: Performed By: #### 1 4959-1 #### ALENA CORREA L ([id number]) [facility] ([facility]) [address] [place] [address] CO2 [Moles/Vol] 23 mmol/L Normal 21-32 [facility] Comment on above: Performed By: #### 1 4959-1 #### ALENA Paredes ([id number]) [facility] ([facility]) [address] [place] [address] Creatinine [Mass/Vol] 2.37 mg/dL High 0.50-1.30 [facility] Comment on above: Performed By: #### 1 4959-1 #### ALENA CORREA L ([id number]) [facility] ([facility]) [address] [place] [address] Glomerular filtration rate/1.73 sq M.predicted 27 mL/min/1.73m*2 Low >60 [facility] Comment on above: Result Comment: Calc ulations of estimated GFR are performed using the 2020 CKD-EPI Study Refit equation without the race variable for the IDMS-Traceable creatinine methods. https://jasn.asnjournals.org/content/22/ASN.20 89279366 Performed By: #### 1 4959-1 #### ALENA Paredes ([id number]) [facility] ([facility]) [address] [place] [address] Glucose [Mass/Vol] 95 mg/dL Normal 74-99 [facility] Comment on above: Performed By: #### 1 4959-1 #### ALENA Paredes ([id number]) [facility] ([facility]) [address] [place] [address]19 Potassium [Moles/Vol] 4.9 mmol/L Normal 3.5-5.3 [facility] Comment on above: Performed By: #### 1 4959-1 #### ALENA Paredes ([id number]) [facility] ([facility]) [address] [place] [address]34 Protein [Mass/Vol] 6.4 g/dL Normal 6.4-8.2 [facility] Comment on above: Performed By: #### 1 4959-1 #### ALENA Paredes ([id number]) [facility] ([facility]) [address] [place] [address] 92968 Sodium [Moles/Vol] 138 mmol/L Normal 136-145 [facility] Comment on above: Performed By: #### 1 4959-1 #### ALENA Paredes ([id number]) [facility] ([facility]) [address] [place] [address] 78764 Urea nitrogen [Mass/Vol] 48 mg/dL High 6-23 [facility] Comment on above: Performed By: #### 1 4959-1 #### ALENA Paredes ([id number]) [facility] ([facility]) [address] [place] [address] 19094 HbA1c (Bld) [Mass fraction]o n 11-06-2024 Average glucose Estimated from glycated hemoglobin (Bld) [Mass/Vol] 220 mg/dL Normal Not Established [facility] Comment on above: Order Comment: Diagn osis of Wkxwzkml-ZbuqusPcg-Qnubtufb: < or = 5.6%Increased risk for developing diabetes: 5.7-6.4%Diagnostic of diabetes: > or = 6.5% Performed By: #### 1 4959-1 #### ALENA Paredes ([id number]) [facility] ([facility]) [address] [place] [address] 82058 Hemoglobin A1c/Hemoglobin.to alcira 11-06-2024 HbA1c (Bld) [Mass fraction] 9.3 % High See comment [facility] Comment on above: Order Comment: Diagn osis of Zfhfgbbj-JnghgdMsm-Daueoisu: < or = 5.6%Increased risk for developing diabetes: 5.7-6.4%Diagnostic of diabetes: > or = 6.5% Performed By: #### 1 4959-1 #### ALENA Paredes ([id number]) [facility] ([facility]) [id number] [place], [place] [id number] Thyrotropinon 11-06-2024 TSH Qn 2.65 m[IU]/L Normal 0.44-3.98 [facility] Comment on above: Order Comment: TSH t esting is performed using different testing methodology at [facility] than at [facility]. Direct result comparisons should only be made within the same method. Performed By: #### 1 4959-1 #### ALENA Paredes ([id number]) [facility] ([facility]) [address] [place], [place] [id number] Thyroxine.freeon 11-06-2024 Free T4 [Mass/Vol] 0.84 ng/dL Normal 0.61-1.12 [facility] Comment on above: Order Comment: Thyro xine Free testing is performed using different testing methodology at [facility] than at [facility]. 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 Performed By: #### 4 6149 #### LAB [address] [address] Moody Martinez M.D. 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 [id number] Anion gap [Moles/Vol] 17 mmol/L Normal 10-20 [facility] Comment on above: Order Comment: [facility] has implemented the eGFR calculation approach that does not have a coefficient for race that conforms to the NKF-ASN Task Force Recommendations. Performed By: #### 4 6124 #### LAB [address] [place], [place] [address] Moody Martinez M.D. [id number] Calcium [Mass/Vol] 8.5 mg/dL Normal 8.4-10.2 [facility] Comment on above: Order Comment: [facility] has implemented the eGFR calculation approach that does not have a coefficient for race that conforms to the NKF-ASN Task Force Recommendations. Performed By: #### 4 6124 #### LAB [address] [address] Moody Martinez M.D. [id number] Chloride [Moles/Vol] 108 mmol/L Normal 98-108 [facility] Comment on above: Order Comment: [facility] has implemented the eGFR calculation approach that does not have a coefficient for race that conforms to the NKF-ASN Task Force Recommendations. Performed By: #### 4 6124 #### LAB [address] [address] Moody Martinez M.D. [id number] Creatinine [Mass/Vol] 2.44 mg/dL High 0.80-1.30 [facility] Comment on above: Order Comment: [facility] has implemented the eGFR calculation approach that does not have a coefficient for race that conforms to the NKF-ASN Task Force Recommendations. Performed By: #### 4 6124 #### LAB [address] [address] Moody Martinez M.D. [id number] EGFR 26 mL/min/1.73 m2 Low >=60 [facility] Comment on above: Order Comment: [facility] has implemented the eGFR calculation approach that does not have a coefficient for race that conforms to the NKF-ASN Task Force Recommendations. Result Comment: Albin mated GFR was calculated using the 2020 CKD-EPI creatinine equation. Performed By: #### 4 6124 #### LAB [address] [address] Moody Martinez M.D. [id number] Glucose [Mass/Vol] 107 mg/dL High 65-99 [facility] Comment on above: Order Comment: [facility] has implemented the eGFR calculation approach that does not have a coefficient for race that conforms to the NKF-ASN Task Force Recommendations. Performed By: #### 4 6124 #### LAB [address] [address] Moody Martinez M.D. [id number] HCO3 (Bld) [Moles/Vol] 18 mmol/L Low 21-32 [facility] Comment on above: Order Comment: [facility] has implemented the eGFR calculation approach that does not have a coefficient for race that conforms to the NKF-ASN Task Force Recommendations. Performed By: #### 4 6127 #### LAB [address] [place], [place] [address] Moody Martinez M.D. [id number] Potassium [Moles/Vol] 4.1 mmol/L Normal 3.5-5.1 [facility] Comment on above: Order Comment: [facility] has implemented the eGFR calculation approach that does not have a coefficient for race that conforms to the NKF-ASN Task Force Recommendations. Performed By: #### 4 6124 #### LAB [address] [address] Moody Martinez M.D. [id number] Sodium [Moles/Vol] 139 mmol/L Normal 135-145 [facility] Comment on above: Order Comment: [facility] has implemented the eGFR calculation approach that does not have a coefficient for race that conforms to the NKF-ASN Task Force Recommendations. Performed By: #### 4 6118 #### LAB [address] [address] Moody Martinez M.D. [id number] Urea nitrogen [Mass/Vol] 85 mg/dL High 8-25 [facility] Comment on above: Order Comment: [facility] has implemented the eGFR calculation approach that does not have a coefficient for race that conforms to the NKF-ASN Task Force Recommendations. Performed By: #### 4 6149 ####[facility] LAB [address] [address] Moody Martinez M.D. [id number] Urea nitrogen/Creatinine [Mass ratio] 34.8 mg/mg High 10.0-20.0 [facility] Comment on above: Order Comment: [facility] has implemented the eGFR calculation approach that does not have a coefficient for race that conforms to the NKF-ASN Task Force Recommendations. Performed By: #### 4 6185 #### LAB [address] [place], [place] [address] Moody Martinez M.D. [id number] BETA-HYDROXYBUTYRATEon 10-28 BETA-HYDROXYBUTYRATE 0.1 mmol/L Normal 0.0-0.3 [facility] Comment on above: Performed By: #### 4 5139 #### LAB [address] [place], [place] [address] Moody Martinez M.D. [id number] BETA-HYDROXYBUTYRATE < Normal 0.0-0.3 [facility] Comment on above: Performed By: #### 4 5139 #### LAB [address] [place], [place] [address] Moody Martinez M.D. [id number] Basic metabolic 2000 panelon 10-28-2024 Anion gap [Moles/Vol] 16 mmol/L 10 - 2 0 mmol/L [facility] Calcium [Mass/Vol] 8.5 mg/dL 8.4 - 10. 2 mg/dL [facility] Chloride [Moles/Vol] 108 mmol/L 98 - 10 8 mmol/L [facility] Creatinine [Mass/Vol] 2.31 mg/dL High 0.80 - 1.30 mg/dL [facility] GFR/1.73 sq M.predicted CKD-EPI (S/P/Bld) [Vol rate/Area] 28 Low - PINF [facility] Comment on above: Estimated GFR was ca lculated using the 2020 CKD-EPI creatinine equation. Glucose [Mass/Vol] 95 mg/dL 65 - 99 mg/dL [facility] HCO3 [Moles/Vol] 19 mmol/L Low 21 - 32 mmol/L [facility] Potassium [Moles/Vol] 4.1 mmol/L 3.5 - 5.1 mmol/L [facility] Sodium [Moles/Vol] 139 mmol/L 135 - 145 mmol/L [facility] Urea nitrogen [Mass/Vol] 82 mg/dL High 8 - 25 mg/d L [facility] Urea nitrogen/Creatinine [Mass ratio] 35.5 mg/mg High 10.0 - 20.0 [facility] has implemented the eGFR calculation approach that does not have a coefficient for race that conforms to the NKF-ASN Task Force Recommendations. [facility] Anion gap [Moles/Vol] 17 mmol/L 10 - 2 0 mmol/L [facility] Calcium [Mass/Vol] 8.5 mg/dL 8.4 - 10. 2 mg/dL [facility] Chloride [Moles/Vol] 108 mmol/L 98 - 10 8 mmol/L [facility] Creatinine [Mass/Vol] 2.44 mg/dL High 0.80 - 1.30 mg/dL [facility] GFR/1.73 sq M.predicted CKD-EPI (S/P/Bld) [Vol rate/Area] 26 Low - PINF [facility] Comment on above: Estimated GFR was ca lculated using the 2020 CKD-EPI creatinine equation. Glucose [Mass/Vol] 107 mg/dL High 65 - 99 mg/dL [facility] HCO3 [Moles/Vol] 18 mmol/L Low 21 - 32 mmol/L [facility] Potassium [Moles/Vol] 4.1 mmol/L 3.5 - 5.1 mmol/L [facility] Sodium [Moles/Vol] 139 mmol/L 135 - 145 mmol/L [facility] Urea nitrogen [Mass/Vol] 85 mg/dL High 8 - 25 mg/d L [facility] Urea nitrogen/Creatinine [Mass ratio] 34.8 mg/mg High 10.0 - 20.0 [facility] has implemented the eGFR calculation approach that does not have a coefficient for race that conforms to the NKF-ASN Task Force Recommendations. [facility] Anion gap [Moles/Vol] 16 mmol/L 10 - 2 0 mmol/L [facility] Calcium [Mass/Vol] 8.3 mg/dL Low 8.4 - 10. 2 mg/dL [facility] Chloride [Moles/Vol] 103 mmol/L 98 - 10 8 mmol/L [facility] Creatinine [Mass/Vol] 2.6 mg/dL High 0.80 - 1.30 mg/dL [facility] GFR/1.73 sq M.predicted CKD-EPI (S/P/Bld) [Vol rate/Area] 24 Low - PINF [facility] Comment on above: Estimated GFR was ca lculated using the 2020 CKD-EPI creatinine equation. Glucose [Mass/Vol] 495 mg/dL Critically high 65 - 99 mg/d L [facility] HCO3 [Moles/Vol] 18 mmol/L Low 21 - 32 mmol/L [facility] Potassium [Moles/Vol] 5 mmol/L 3.5 - 5.1 mmol/L [facility] Sodium [Moles/Vol] 132 mmol/L Low 135 - 145 mmol/L [facility] Urea nitrogen [Mass/Vol] 93 mg/dL High 8 - 25 mg/d L [facility] Urea nitrogen/Creatinine [Mass ratio] 35.8 mg/mg High 10.0 - 20.0 [facility] has implemented the eGFR calculation approach that does not have a coefficient for race that conforms to the NKF-ASN Task Force Recommendations. [facility] Beta hydroxybutyrate [Moles/ Vol]on 10-28-2024 Interpretation and review of laboratory results Normal [facility] Interpretation and review of laboratory results Normal [facility] Interpretation and review of laboratory results Abnormal [facility] Beta-Hydroxybutyrateon 10-28 Beta hydroxybutyrate [Moles/Vol] 0.1 mmol/L 0.0 - 0.3 mmol/L [facility] Beta hydroxybutyrate [Moles/Vol] mmol/L 0.0 - 0.3 mmol/L [facility] Beta hydroxybutyrate [Moles/Vol] 0.4 mmol/L High 0.0 - 0.3 mmol/L [facility] CBC Auto Differentialon 10-02 Basophils (Bld) [#/Vol] 0.08 10*3/uL [facility] Basophils/100 WBC (Bld) 0.8 % [facility] Eosinophils (Bld) [#/Vol] 0.06 10*3/uL [facility] Eosinophils/100 WBC (Bld) 0.6 % [facility] Erythrocyte distribution width (RBC) [Entitic vol] 13.6 % 11.6 - 14.8 % [facility] Hematocrit (Bld) [Volume fraction] 29 % Low 41.0 - 53.0 % [facility] Hemoglobin (Bld) [Mass/Vol] 9.3 g/dL Low 13.5 - 17.5 g/dL [facility] Immature granulocytes (Bld) [#/Vol] 0.03 10*3/uL [facility] Immature granulocytes/100 WBC (Bld) 0.3 % [facility] Comment on above: The IG parameter is the percentage of metamyelocytes, myelocytes and promyelocytes. An immature granulocyte count (IG) of 1% or more suggests the possibility of infection, an IG count of 3% is very likely related to an infection. Interpretation and review of laboratory results Abnormal [facility] Lymphocytes (Bld) [#/Vol] 2.94 10*3/uL [facility] Lymphocytes/100 WBC (Bld) 28.7 % [facility] MCH (RBC) [Entitic mass] 30.3 pg 26. 0 - 34.0 pg [facility] MCHC (RBC) [Mass/Vol] 32.1 g/dL 31.0 - 37.0 g/dL [facility] MCV (RBC) [Entitic vol] 94.5 fL 80.0 - 100.0 fL [facility] Monocytes (Bld) [#/Vol] 1.02 10*3/uL High [facility] Monocytes/100 WBC (Bld) 10 % [facility] Neutrophils (Bld) [#/Vol] 6.12 10*3/uL [facility] Neutrophils/100 WBC (Bld) 59.6 % [facility] Nucleated RBC (Bld) [#/Vol] 0 10*3/uL [facility] Nucleated RBC/100 WBC (Bld) [Ratio] 0 % [facility] Platelet mean volume (Bld) [Entitic vol] 10.8 fL 9.4 - 12.4 fL [facility] Platelets (Bld) [#/Vol] 188 10*3/uL [facility] RBC (Bld) [#/Vol] 3.07 10*6/uL Low [facility] WBC (Bld) [#/Vol] 10.25 10*3/uL [facility] CBC WITH AUTO DIFFERENTIALon 10-28-2024 AUTO NRBC 0.0 % Normal [facility] Comment on above: Performed By: #### L [id number] #### LAB [address] [address] Moody Martinez M.D. [id number] AUTO NRBC ABS COUNT 0.00 K/mcL Normal 0.00-0.00 [facility] Comment on above: Performed By: #### L [id number] #### LAB [address] [address] Moody Martinez M.D. [id number] BASOPHILS ABSOLUTE COUNT 0.08 K/mcL Normal 0.00-0.30 [facility] Comment on above: Performed By: #### L [id number] #### LAB [address] [address] Moody Martinez M.D. [id number] Basophils/100 WBC (Bld) 0.8 % Normal [facility] Comment on above: Performed By: #### L [id number] #### LAB [address] [address] Moody Martinez M.D. [id number] Eosinophils (Bld) [#/Vol] 0.06 10*3/uL Normal 0.00-0.5 0 [facility] Comment on above: Performed By: #### L [id number] #### LAB [address] [address] Moody Martinez M.D. [id number] Eosinophils/100 WBC (Bld) 0.6 % Normal [facility] Comment on above: Performed By: #### L [id number] #### LAB [address] [address] Moody Martinez M.D. [id number] Erythrocyte distribution width (RBC) [Ratio] 13.6 % Normal 11.6-14.8 [facility] Comment on above: Performed By: #### L [id number] #### LAB [address] [address] Moody Martinez M.D. [id number] Hematocrit (Bld) [Volume fraction] 29.0 % Low 41.0-53.0 [facility] Comment on above: Performed By: #### L [id number] #### LAB [address] [address] Moody Martinez M.D. [id number] Hemoglobin (Bld) [Mass/Vol] 9.3 g/dL Low 13.5-17.5 [facility] Comment on above: Performed By: #### L [id number] #### LAB [address] [address] Moody Martinez M.D. [id number] IG ABSOLUTE 0.03 K/mcL Normal 0.00-0.30 [facility] Comment on above: Performed By: #### L [id number] #### LAB [address] [address] Moody Martinez M.D. [id number] IG PERCENT 0.30 % Normal [facility] Comment on above: Result Comment: The IG parameter is the percentage of metamyelocytes, myelocytes and promyelocytes. An immature granulocyte count (IG) of 1% or more suggests the possibility of infection, an IG count of 3% is very likely related to an infection. Performed By: #### L [id number] #### LAB [address] [address] Moody Martinez M.D. [id number] Lymphocytes (Bld) [#/Vol] 2.94 10*3/uL Normal 0.90-4.[address] [place] [address] Comment on above: Performed By: #### L [id number] #### LAB [address] [address] Moody Martinez M.D. [id number] Lymphocytes/100 WBC (Bld) 28.7 % Normal [facility] Comment on above: Performed By: #### L [id number] #### LAB [address] [address] Moody Martinez M.D. [id number] MCH (RBC) [Entitic mass] 30.3 pg Normal 26.0-34.0 [facility] Comment on above: Performed By: #### L [id number] #### LAB [address] [address] Moody Martinez M.D. [id number] MCV (RBC) [Entitic vol] 94.5 fL Normal 80.0-100.0 [facility] Comment on above: Performed By: #### L [id number] #### LAB [address] [address] Moody Martinez M.D. [id number] MEAN CORPUSCULAR HEMOGLOBIN CONC 32.1 g/dL Normal 31.0-37.0 [facility] Comment on above: Performed By: #### L [id number] #### LAB [address] [address] Moody Martinez M.D. [id number] Monocytes (Bld) [#/Vol] 1.02 10*3/uL High 0.30-0.90 [facility] Comment on above: Performed By: #### L [id number] #### LAB [address] [address] Moody Martinez M.D. [id number] Monocytes/100 WBC (Bld) 10.0 % Normal [facility] Comment on above: Performed By: #### L [id number] #### [facility] LAB [address] [address] Moody Martinez M.D. [id number] NEUTROPHILS ABSOLUTE COUNT 6.12 K/mcL Normal 1.70-7.00 [facility] Comment on above: Performed By: #### L [id number] #### LAB [address] [address] Moody Martinez M.D. [id number] Neutrophils/100 WBC (Bld) 59.6 % Normal [facility] Comment on above: Performed By: #### L [id number] #### LAB [address] [address] Moody Martinez M.D. [id number] Platelet mean volume (Bld) [Entitic vol] 10.8 fL Normal 9.4-12.4 [facility] Comment on above: Performed By: #### L [id number] #### LAB [address] [address] Moody Martinez M.D. [id number] Platelets (Bld) [#/Vol] 188 10*3/uL Normal 150-400 [facility] Comment on above: Performed By: #### L [id number] #### [facility] LAB [address] [address] Moody Martinez M.D. [id number] RBC (Bld) [#/Vol] 3.07 10*6/uL Low 4.50-5.90 [facility] Comment on above: Performed By: #### L [id number] #### MH LAB [address] [place], [place] [address] Moody Martinez M.D. [id number] WBC (Bld) [#/Vol] 10.25 10*3/uL Normal 4.50-11.00 [facility] Comment on above: Performed By: #### L [id number] #### [facility] LAB [address] [place], [place] [address] Moody Martinez M.D. [id number] CONSULTon 10-28-2024 CONSULT Attestation signed by Pedro West MD at 10/29/2024 9:27 AM Patient was evaluated by Keeley Patton CNP. Patient ID: Patient Name: Enoc Armando Admit Date: 10/27/2024 MR #: [id number] : 1945 Current location: [facility] Physicians: Ryley Jeter MD (Family); Dr Benitez [...] with chronic low back pain presented to [facility] on 10/27/2024 for an elective left [...] Diagnosed in 1994. Patient is managed by [facility] endocrinology for his type 1 diabetes. He is currently taking Admelog insulin: 10 units at mealtime Lantus insulin: 12 units at bedtime Current monitoring regimen: home blood tests - 3 times daily Complications of diabetes include: Retinopathy: Negative Nephropathy: Positive Peripheral Neuropathy: Positive Autonomic Neuropathy: Negative Allergies: Allergies Allergen Reactions Sfpnqzo-Jma-Laf Reductase Inhibitors Muscle cramps Home Medications: Outpatient [...] MG table (more content not included)... Normal [facility] Glucose (Bld) [Mass/Vol]on 1 12-29-2023 Glucose [Mass/Vol] 321 mg/dL High 65 - 99 mg/dL [facility] Interpretation and review of laboratory results Abnormal [facility] Glucose [Mass/Vol] 288 mg/dL High 65 - 99 mg/dL [facility] Interpretation and review of laboratory results Abnormal [facility] Glucose [Mass/Vol] 130 mg/dL High 65 - 99 mg/dL [facility] Interpretation and review of laboratory results Abnormal [facility] Glucose [Mass/Vol] 55 mg/dL Critically low 65 - 99 mg/dL [facility] Interpretation and review of laboratory results Abnormal [facility] Critical result acted upon time of test. Test performed at bedside. [facility] Glucose [Mass/Vol] 85 mg/dL 65 - 99 mg/dL [facility] Interpretation and review of laboratory results Normal [facility] Glucose [Mass/Vol] 111 mg/dL High 65 - 99 mg/dL [facility] Interpretation and review of laboratory results Abnormal [facility] Glucose [Mass/Vol] 69 mg/dL 65 - 99 mg/dL [facility] Interpretation and review of laboratory results Normal [facility] Glucose [Mass/Vol] 76 mg/dL 65 - 99 mg/dL [facility] Interpretation and review of laboratory results Normal [facility] Glucose [Mass/Vol] 94 mg/dL 65 - 99 mg/dL [facility] Interpretation and review of laboratory results Normal [facility] Glucose [Mass/Vol] 115 mg/dL High 65 - 99 mg/dL [facility] Interpretation and review of laboratory results Abnormal [facility] Glucose [Mass/Vol] 168 mg/dL High 65 - 99 mg/dL [facility] Interpretation and review of laboratory results Abnormal [facility] Glucose [Mass/Vol] 215 mg/dL High 65 - 99 mg/dL [facility] Interpretation and review of laboratory results Abnormal [facility] Glucose [Mass/Vol] 336 mg/dL High 65 - 99 mg/dL [facility] Interpretation and review of laboratory results Abnormal [facility] Glucose [Mass/Vol] 443 mg/dL Critically high 65 - 99 mg/d L [facility] [facility] Interpretation and review of laboratory results Abnormal [facility] Critical result acted upon time of test. Test performed at bedside. [facility] HbA1c (Bld) [Mass fraction]o n 10-28-2024 Average glucose Estimated from glycated hemoglobin (Bld) [Mass/Vol] 237 mg/dL High 74 - 114 mg/dL [facility] Interpretation and review of laboratory results Abnormal [facility] Hemoglobin A1con 10-28-2024 HbA1c (Bld) [Mass fraction] 9.9 % High 4.2 - 5.6 % [facility] MAGNESIUM LEVELon 10-28-2024 Magnesium [Mass/Vol] 2.6 mg/dL High 1.6-2.4 [facility] Comment on above: Performed By: #### 4 [id number] #### LAB [address] [address] Moody Martinez M.D. [id number] Magnesium [Mass/Vol] 2.6 mg/dL High 1.6-2.4 [facility] Comment on above: Performed By: #### 4 [id number] #### LAB [address] [address] Moody Martinez M.D. [id number] Magnesium Levelon 10-28-2024 Magnesium [Mass/Vol] 2.6 mg/dL High 1.6 - 2 .4 mg/dL [facility] Magnesium [Mass/Vol] 2.6 mg/dL High 1.6 - 2 .4 mg/dL [facility] Magnesium [Mass/Vol] 2.6 mg/dL High 1.6 - 2 .4 mg/dL [facility] No Panel Informationon 10-28 Interpretation and review of laboratory results Abnormal [facility] Interpretation and review of laboratory results Abnormal [facility] Interpretation and review of laboratory results Abnormal [facility] PHOSPHORUSon 10-28-2024 Phosphate [Mass/Vol] 4.7 mg/dL High 2.3-3.7 [facility] Comment on above: Performed By: #### 4 [id number] ####[facility] LAB [address] [place], [place] [address] Moody Martinez M.D. [id number] POC GLUCOSE - [facility] 024 Glucose [Mass/Vol] 321 mg/dL High 65-99 [facility] Comment on above: Performed By: #### L [id number] #### [facility] LAB [address] [place], [place] [address] Moody Martinez M.D. [id number] Glucose [Mass/Vol] 288 mg/dL High [address] [place] [address] Comment on above: Performed By: #### 4 6932 ####[facility] LAB [address] [address] Moody Martinez M.D. [id number] Glucose [Mass/Vol] 130 mg/dL High [address] [place] [address] Comment on above: Performed By: #### 4 6932 ####[facility] LAB [address] [address] Moody Martinez M.D. [id number] Glucose [Mass/Vol] 55 mg/dL Off scale low [address] [place] [address] Comment on above: Order Comment: Criti christian result acted upon time of test. Test performed at bedside. Performed By: #### 4 6932 ####[facility] LAB [address] [address] Moody Martinez M.D. [id number] Glucose [Mass/Vol] 85 mg/dL Normal [address] [place] [address] Comment on above: Performed By: #### 4 6932 ####[facility] [address] [address] Moody Martinez M.D. [id number] Glucose [Mass/Vol] 111 mg/dL High [address] [place] [address] Comment on above: Performed By: #### L [id number] #### LAB [address] [address] Moody Martinez M.D. [id number] Glucose [Mass/Vol] 69 mg/dL Normal [address] [place] [address] Comment on above: Performed By: #### 4 6932 #### LAB [address] [address] Moody Martinez M.D. [id number] Glucose [Mass/Vol] 76 mg/dL Normal [address] [place] [address] Comment on above: Performed By: #### 4 6932 #### LAB [address] [address] Moody Martinez M.D. [id number] Glucose [Mass/Vol] 94 mg/dL Normal [address] [place] [address] Comment on above: Performed By: #### 4 6932 ####[facility] [address] [address] Moody Martinez M.D. [id number] Glucose [Mass/Vol] 115 mg/dL High [address] [place] [address] Comment on above: Performed By: #### 4 6932 #### LAB [address] [address] Moody Martinez M.D. [id number] Glucose [Mass/Vol] 168 mg/dL High [address] [place] [address] Comment on above: Performed By: #### L [id number] #### LAB [address] [address] Moody Martinez M.D. [id number] Glucose [Mass/Vol] 215 mg/dL High [address] [place] [address] Comment on above: Performed By: #### 4 6932 #### LAB [address] [address] Moody Martinez M.D. [id number] Glucose [Mass/Vol] 336 mg/dL High [address] [place] [address] Comment on above: Performed By: #### 4 6932 #### LAB [address] [address] Moody Martinez M.D. [id number] Phosphoruson 10-28-2024 Phosphate [Mass/Vol] 4.7 mg/dL High 2.3 - 3 .7 mg/dL [facility] Phosphate [Mass/Vol] 4.4 mg/dL High 2.3 - 3 .7 mg/dL [facility] ABOR VERIFICATIONon ABO and Rh group Nom (Bld) Blood group A Rh(D) positive [facility] ABO and Rh group Nom (Bld) ABO/Rh Verification [facility] Comment on above: Result Comment: Twila ent's ABO/Rh is verified. ABOR Verificationon 024 ABO and Rh group Nom (Bld) Blood group A Rh(D) positive [facility] ABO and Rh group Nom (Bld) ABO/Rh Verification [facility] Comment on above: Patient's ABO/Rh is verified. [facility] AMYLASEon 10-27-2024 Amylase [Catalytic activity/Vol] 26.8 U/L Normal 13.0-53.0 [facility] Comment on above: Performed By: #### 4 6932 #### LAB [address] [place], [place] [address] Moody Martinez M.D. [id number] APTTon 10-27-2024 aPTT Coag (Bld) [Time] 74 s High [facility] aPTT Coag (Bld) [Time] 74 s High 23-34 [facility] Comment on above: Order Comment: Thera peutic range for APTT's is 68 - 104 seconds Performed By: #### 4 5113 #### LAB [address] [place], [place] [address] Moody Martinez M.D. [id number] Amylaseon 10-27-2024 Amylase.pancreatic [Catalytic activity/Vol] 26.8 U/L 13.0 - 53.0 U/L [facility] BASIC METABOLIC PANELon - Anion gap [Moles/Vol] 16 mmol/L Normal 10-20 [facility] Comment on above: Order Comment: [facility] has implemented the eGFR calculation approach that does not have a coefficient for race that conforms to the NKF-ASN Task Force Recommendations. Performed By: #### 4 6932 #### LAB [address] [place] [id number] Moody Martinez M.D. [id number] Calcium [Mass/Vol] 8.3 mg/dL Low 8.4-10.2 [facility] Comment on above: Order Comment: [facility] has implemented the eGFR calculation approach that does not have a coefficient for race that conforms to the NKF-ASN Task Force Recommendations. Performed By: #### 4 6932 #### LAB [address] [place], [place] [address] Moody Martinez M.D. [id number] Chloride [Moles/Vol] 103 mmol/L Normal 98-108 [facility] Comment on above: Order Comment: [facility] has implemented the eGFR calculation approach that does not have a coefficient for race that conforms to the NKF-ASN Task Force Recommendations. Performed By: #### 4 6932 #### LAB [address] [place], [place] [address] Moody Martinez M.D. [id number] Creatinine [Mass/Vol] 2.60 mg/dL High 0.80-1.30 [facility] Comment on above: Order Comment: [facility] has implemented the eGFR calculation approach that does not have a coefficient for race that conforms to the NKF-ASN Task Force Recommendations. Performed By: #### 4 6932 #### LAB [address] [address] Moody Martinez M.D. [id number] EGFR 24 mL/min/1.73 m2 Low >=60 [facility] Comment on above: Order Comment: [facility] has implemented the eGFR calculation approach that does not have a coefficient for race that conforms to the NKF-ASN Task Force Recommendations. Result Comment: Albin mated GFR was calculated using the 2020 CKD-EPI creatinine equation. Performed By: #### 4 6932 #### LAB [address] [place], [place] [address] Moody Martinez M.D. [id number] Glucose [Mass/Vol] 495 mg/dL Off scale high 65-99 [facility] Comment on above: Order Comment: [facility] has implemented the eGFR calculation approach that does not have a coefficient for race that conforms to the NKF-ASN Task Force Recommendations. Performed By: #### 4 6932 #### LAB [address] [place], [place] [address] Moody Martinez M.D. [id number] HCO3 (Bld) [Moles/Vol] 18 mmol/L Low 21-32 [facility] Comment on above: Order Comment: [facility] has implemented the eGFR calculation approach that does not have a coefficient for race that conforms to the NKF-ASN Task Force Recommendations. Performed By: #### 4 6919 #### LAB [address] [place], [place] [address] Moody Martinez M.D. [id number] Potassium [Moles/Vol] 5.0 mmol/L Normal 3.5-5.1 [facility] Comment on above: Order Comment: [facility] has implemented the eGFR calculation approach that does not have a coefficient for race that conforms to the NKF-ASN Task Force Recommendations. Performed By: #### 4 6932 #### LAB [address] [address] Moody Martinez M.D. [id number] Sodium [Moles/Vol] 132 mmol/L Low 135-145 [facility] Comment on above: Order Comment: [facility] has implemented the eGFR calculation approach that does not have a coefficient for race that conforms to the NKF-ASN Task Force Recommendations. Performed By: #### 4 6932 #### LAB [address] [address] Moody Martinez M.D. [id number] Urea nitrogen [Mass/Vol] 93 mg/dL High 8-25 [facility] Comment on above: Order Comment: [facility] has implemented the eGFR calculation approach that does not have a coefficient for race that conforms to the NKF-ASN Task Force Recommendations. Performed By: #### 4 6932 #### LAB [address] [place], [place] [address] Moody Martinez M.D. [id number] Urea nitrogen/Creatinine [Mass ratio] 35.8 mg/mg High 10.0-20.0 [facility] Comment on above: Order Comment: [facility] has implemented the eGFR calculation approach that does not have a coefficient for race that conforms to the NKF-ASN Task Force Recommendations. Performed By: #### 4 6932 #### LAB [address] [address] Moody Martinez M.D. [id number] BETA-HYDROXYBUTYRATEon 10-27 BETA-HYDROXYBUTYRATE 0.4 mmol/L High 0.0-0.3 [facility] Comment on above: Performed By: #### 4 5139 #### LAB [address] [address] Moody Martinez M.D. [id number] BETA-HYDROXYBUTYRATE 2.3 mmol/L High 0.0-0.3 [facility] Comment on above: Performed By: #### 4 5139 #### LAB [address] [address] Moody Martinez M.D. [id number] BETA-HYDROXYBUTYRATE 0.7 mmol/L High 0.0-0.3 [facility] Comment on above: Performed By: #### 4 6932 #### LAB [address] [address] Moody Martinez M.D. [id number] BILIRUBIN, DIRECTon 10-27-20 BILIRUBIN, DIRECT < Normal 0.0-0.4 [facility] Comment on above: Performed By: #### 4 5145 #### LAB [address] [address] Moody Martinez M.D. [id number] Beta hydroxybutyrate [Moles/ Vol]on 10-27-2024 Interpretation and review of laboratory results Abnormal [facility] Interpretation and review of laboratory results Abnormal [facility] Beta-Hydroxybutyrateon 10-27 Beta hydroxybutyrate [Moles/Vol] 2.3 mmol/L High 0.0 - 0.3 mmol/L [facility] Beta hydroxybutyrate [Moles/Vol] 0.7 mmol/L High 0.0 - 0.3 mmol/L [facility] Bilirubin.direct [Mass/Vol]o n 10-27-2024 Bilirubin.conjugated [Mass/Vol] mg/dL 0.0 - 0.4 mg/dL [facility] Interpretation and review of laboratory results Normal [facility] Blood type and Indirect anti body screen panel (Bld)on 10-27-2024 ABO and Rh group Nom (Bld) Blood group A Rh(D) positive [facility] Blood group antibody screen Ql Negative [facility] Specimen Expires 10/30/2024 23:59 EST [facility] CBC Auto Differentialon 10-02 Basophils (Bld) [#/Vol] 0.04 10*3/uL [facility] Basophils/100 WBC (Bld) 0.5 % [facility] Eosinophils (Bld) [#/Vol] 0 10*3/uL [facility] Eosinophils/100 WBC (Bld) 0 % [facility] Erythrocyte distribution width (RBC) [Entitic vol] 13.7 % 11.6 - 14.8 % [facility] Hematocrit (Bld) [Volume fraction] 34.8 % Low 41.0 - 53.0 % [facility] Hemoglobin (Bld) [Mass/Vol] 11.2 g/dL Low 13.5 - 17.5 g/dL [facility] Immature granulocytes (Bld) [#/Vol] 0.04 10*3/uL [facility] Immature granulocytes/100 WBC (Bld) 0.5 % [facility] Comment on above: The IG parameter is the percentage of metamyelocytes, myelocytes and promyelocytes. An immature granulocyte count (IG) of 1% or more suggests the possibility of infection, an IG count of 3% is very likely related to an infection. Interpretation and review of laboratory results Abnormal [facility] Lymphocytes (Bld) [#/Vol] 1.2 10*3/uL [facility] Lymphocytes/100 WBC (Bld) 13.8 % [facility] MCH (RBC) [Entitic mass] 30 pg 26. 0 - 34.0 pg [facility] MCHC (RBC) [Mass/Vol] 32.2 g/dL 31.0 - 37.0 g/dL [facility] MCV (RBC) [Entitic vol] 93.3 fL 80.0 - 100.0 fL [facility] Monocytes (Bld) [#/Vol] 0.11 10*3/uL Low [facility] Monocytes/100 WBC (Bld) 1.3 % [facility] Neutrophils (Bld) [#/Vol] 7.32 10*3/uL High [facility] Neutrophils/100 WBC (Bld) 83.9 % [facility] Nucleated RBC (Bld) [#/Vol] 0 10*3/uL [facility] Nucleated RBC/100 WBC (Bld) [Ratio] 0 % [facility] Platelet mean volume (Bld) [Entitic vol] 11.2 fL 9.4 - 12.4 fL [facility] Platelets (Bld) [#/Vol] 234 10*3/uL [facility] RBC (Bld) [#/Vol] 3.73 10*6/uL Low [facility] WBC (Bld) [#/Vol] 8.71 10*3/uL [facility] CBC WITH AUTO DIFFERENTIALon 10-27-2024 AUTO NRBC 0.0 % Normal [facility] Comment on above: Performed By: #### L [id number] #### LAB [address] [address] Moody Martinez M.D. [id number] AUTO NRBC ABS COUNT 0.00 K/mcL Normal 0.00-0.00 [facility] Comment on above: Performed By: #### L [id number] #### LAB [address] [place] [address] Moody Martinez M.D. [id number] BASOPHILS ABSOLUTE COUNT 0.04 K/mcL Normal 0.00-0.30 [facility] Comment on above: Performed By: #### L [id number] #### LAB [address] [place] [address] Moody Martinez M.D. [id number] Basophils/100 WBC (Bld) 0.5 % Normal [facility] Comment on above: Performed By: #### L [id number] #### LAB [address] [place] [address] Moody Martinez M.D. [id number] Eosinophils (Bld) [#/Vol] 0.00 10*3/uL Normal 0.00-0.5 0 [facility] Comment on above: Performed By: #### L [id number] #### LAB [address] [place] [address] Moody Martinez M.D. [id number] Eosinophils/100 WBC (Bld) 0.0 % [facility] Comment on above: Performed By: #### L [id number] #### LAB [address] [place] [address] Moody Martinez M.D. [id number] Erythrocyte distribution width (RBC) [Ratio] 13.7 % Normal 11.6-14.8 [facility] Comment on above: Performed By: #### L [id number] #### LAB [address] [address] Moody Martinez M.D. [id number] Hematocrit (Bld) [Volume fraction] 34.8 % Low 41.0-53.0 [facility] Comment on above: Performed By: #### L [id number] #### LAB [address] [address] Moody Martinez M.D. [id number] Hemoglobin (Bld) [Mass/Vol] 11.2 g/dL Low 13.5-17.5 [facility] Comment on above: Performed By: #### L [id number] #### LAB [address] [address] Moody Martinez M.D. [id number] IG ABSOLUTE 0.04 K/mcL Normal 0.00-0.30 [facility] Comment on above: Performed By: #### L [id number] #### LAB [address] [address] Moody Martinez M.D. [id number] IG PERCENT 0.50 % [facility] Comment on above: Result Comment: The IG parameter is the percentage of metamyelocytes, myelocytes and promyelocytes. An immature granulocyte count (IG) of 1% or more suggests the possibility of infection, an IG count of 3% is very likely related to an infection. Performed By: #### L [id number] #### LAB [address] [address] Moody Martinez M.D. [id number] Lymphocytes (Bld) [#/Vol] 1.20 10*3/uL Normal 0.90-4.0 0 [facility] Comment on above: Performed By: #### L [id number] #### LAB [address] [address] Moody Martinez M.D. [id number] Lymphocytes/100 WBC (Bld) 13.8 % Normal [facility] Comment on above: Performed By: #### L [id number] ####[facility] [address] [address] Moody Martinez M.D. [id number] MCH (RBC) [Entitic mass] 30.0 pg Normal 26.0-34.0 [facility] Comment on above: Performed By: #### L [id number] #### LAB [address] [address] Moody Martinez M.D. [id number] MCV (RBC) [Entitic vol] 93.3 fL Normal 80.0-100.0 [facility] Comment on above: Performed By: #### L [id number] #### LAB [address] [address] Moody Martinez M.D. [id number] MEAN CORPUSCULAR HEMOGLOBIN CONC 32.2 g/dL Normal 31.0-37.0 [facility] Comment on above: Performed By: #### L [id number] #### LAB [address] [address] Moody Martinez M.D. [id number] Monocytes (Bld) [#/Vol] 0.11 10*3/uL Low 0.30-0.90 [facility] Comment on above: Performed By: #### L [id number] #### LAB [address] [address] Moody Martinze M.D. [id number] Monocytes/100 WBC (Bld) 1.3 % Normal [facility] Comment on above: Performed By: #### L [id number] #### LAB [address] [address] Moody Martinez M.D. [id number] NEUTROPHILS ABSOLUTE COUNT 7.32 K/mcL High 1.70-7.00 [facility] Comment on above: Performed By: #### L [id number] #### LAB [address] [address] Moody Martinez M.D. [id number] Neutrophils/100 WBC (Bld) 83.9 % Normal [facility] Comment on above: Performed By: #### L [id number] #### LAB [address] [address] Moody Martinez M.D. [id number] Platelet mean volume (Bld) [Entitic vol] 11.2 fL Normal 9.4-12.4 [facility] Comment on above: Performed By: #### L [id number] #### LAB [address] [address] Moody Martinez M.D. [id number] Platelets (Bld) [#/Vol] 234 10*3/uL Normal 150-400 [facility] Comment on above: Performed By: #### L [id number] #### LAB [address] [address] Moody Martinez M.D. [id number] RBC (Bld) [#/Vol] 3.73 10*6/uL Low 4.50-5.90 [facility] Comment on above: Performed By: #### L [id number] #### LAB [address] [address] Moody Martinez M.D. [id number] WBC (Bld) [#/Vol] 8.71 10*3/uL Normal 4.50-11.00 [facility] Comment on above: Performed By: #### L [id number] #### LAB [address] [address] Moody Martinez M.D. [id number] CITRATED TEG (CARDIAC) WITH HEPARINASE PANEL [facility] [place] [facility]-27-2024 (CFF-FLEV) CITRATED FUNCTIONAL FIBRINOGEN -EST. FUNCTIONAL FIBRINOGEN LEVEL 381.4 mg/dL Normal 278.0-581.0 [facility] Comment on above: Performed By: #### L [id number] #### LAB [address] [address] Moody Martinez M.D. [id number] (CFF-MA) CITRATED FUNCTIONAL FIBRINOGEN - [place] 20.9 mm Normal 15.0-32.0 [facility] Comment on above: Performed By: #### L [id number] #### LAB [address] [address] Moody Martinez M.D. [id number] (CK-ANGLE) CITRATED KAOLIN-ALPHA ANGLE 73.2 deg Normal 63.0-78.0 [facility] Comment on above: Performed By: #### L [id number] #### LAB [address] [address] Moody Martinez M.D. [id number] (CK-K) CITRATED KAOLIN-SPEED OF CLOT FORMATION 1.3 min Normal 0.8-2.1 [facility] Comment on above: Performed By: #### L [id number] #### LAB [address] [address] Moody Martinez M.D. [id number] (CK-MA) CITRATED KAOLIN-MAXIMUM CLOT STRENGTH 50.9 mm Low 52.0-69.0 [facility] Comment on above: Performed By: #### L [id number] #### LAB [address] [address] Moody Martinez M.D. [id number] (CK-R) CITRATED KAOLIN - REACTION TIME 16.4 min High 4.6-9.1 [facility] Comment on above: Performed By: #### L [id number] #### LAB [address] [address] Moody Martinez M.D. [id number] (CKH-R) CITRATED KAOLIN WITH HEPARINASE-REACTION TIME 7.6 min Normal 4.3-8.3 [facility] Comment on above: Performed By: #### L [id number] #### LAB [address] [address] Moody Martinez M.D. [id number] (GIZZARD PEELER-MA) CITRATED RAPID TEG - [place] 62.3 mm Normal 52.0-70.0 [facility] Comment on above: Performed By: #### L [id number] #### LAB [address] [address] Moody Martinez M.D. [id number] COMPREHENSIVE METABOLIC PANE Jame 10-27-2024 Albumin [Mass/Vol] 3.4 g/dL Normal 3.2-5.2 [facility] Comment on above: Order Comment: [facility] has implemented the eGFR calculation approach that does not have a coefficient for race that conforms to the NKF-ASN Task Force Recommendations. Performed By: #### 4 6126 #### LAB [address] [address] Moody Martinez M.D. [id number] ALP [Catalytic activity/Vol] 86 U/L Normal 40-150 [facility] Comment on above: Order Comment: [facility] has implemented the eGFR calculation approach that does not have a coefficient for race that conforms to the NKF-ASN Task Force Recommendations. Performed By: #### 4 6126 #### LAB [address] [address] Moody Martinez M.D. [id number] ALT [Catalytic activity/Vol] 13 U/L Normal 0-50 U/L [facility] Comment on above: Order Comment: [facility] has implemented the eGFR calculation approach that does not have a coefficient for race that conforms to the NKF-ASN Task Force Recommendations. Performed By: #### 4 6126 #### LAB [address] [address] Moody Martinez M.D. [id number] Anion gap [Moles/Vol] 20 mmol/L Normal 10-20 [facility] Comment on above: Order Comment: [facility] has implemented the eGFR calculation approach that does not have a coefficient for race that conforms to the NKF-ASN Task Force Recommendations. Performed By: #### 4 6126 #### LAB [address] [address] Moody Martinez M.D. [id number] AST [Catalytic activity/Vol] 12 U/L Normal 0-50 U/L [facility] Comment on above: Order Comment: [facility] has implemented the eGFR calculation approach that does not have a coefficient for race that conforms to the NKF-ASN Task Force Recommendations. Performed By: #### 4 6126 #### LAB [address] [place] [id number] Moody Martinez M.D. [id number] Bilirubin [Mass/Vol] 0.3 mg/dL Normal 0.0-1.3 [facility] Comment on above: Order Comment: [facility] has implemented the eGFR calculation approach that does not have a coefficient for race that conforms to the NKF-ASN Task Force Recommendations. Performed By: #### 4 6126 #### LAB [address] [address] Moody Martinez M.D. [id number] Calcium [Mass/Vol] 8.4 mg/dL Normal 8.4-10.2 [facility] Comment on above: Order Comment: [facility] Services has implemented the eGFR calculation approach that does not have a coefficient for race that conforms to the NKF-ASN Task Force Recommendations. Performed By: #### [id number] #### LAB [address] [address] Moody Martinez M.D. [id number] Chloride [Moles/Vol] 99 mmol/L Normal 98-108 [facility] Comment on above: Order Comment: [facility] has implemented the eGFR calculation approach that does not have a coefficient for race that conforms to the NKF-ASN Task Force Recommendations. Performed By: #### 4 [id number] #### LAB [address] [address] Moody Martinez M.D. [id number] Creatinine [Mass/Vol] 2.55 mg/dL High 0.80-1.30 [facility] Comment on above: Order Comment: [facility] has implemented the eGFR calculation approach that does not have a coefficient for race that conforms to the NKF-ASN Task Force Recommendations. Performed By: #### 4 [id number] #### LAB [address] [address] Moody Martinez M.D. [id number] EGFR 25 mL/min/1.73 m2 Low >=60 [facility] Comment on above: Order Comment: [facility] has implemented the eGFR calculation approach that does not have a coefficient for race that conforms to the NKF-ASN Task Force Recommendations. Result Comment: Albin mated GFR was calculated using the 2020 CKD-EPI creatinine equation. Performed By: #### [id number] #### LAB [address] [address] Moody Martinez M.D. [id number] Glucose [Mass/Vol] 564 mg/dL Off scale high 65-99 [facility] Comment on above: Order Comment: [facility] has implemented the eGFR calculation approach that does not have a coefficient for race that conforms to the NKF-ASN Task Force Recommendations. Performed By: #### 4 [id number] #### LAB [address] [address] Moody Martinez M.D. [id number] HCO3 (Bld) [Moles/Vol] 15 mmol/L Low 21-32 [facility] Comment on above: Order Comment: [facility] has implemented the eGFR calculation approach that does not have a coefficient for race that conforms to the NKF-ASN Task Force Recommendations. Performed By: #### 4 [id number] #### LAB [address] [address] Moody Martinez M.D. [id number] Potassium [Moles/Vol] 5.9 mmol/L High 3.5-5.1 [facility] Comment on above: Order Comment: [facility] has implemented the eGFR calculation approach that does not have a coefficient for race that conforms to the NKF-ASN Task Force Recommendations. Performed By: #### 4 6126 ####[facility] LAB [address] [address] Moody Martinez M.D. [id number] Protein [Mass/Vol] 5.8 g/dL Low 6.0-8.0 [facility] Comment on above: Order Comment: [facility] has implemented the eGFR calculation approach that does not have a coefficient for race that conforms to the NKF-ASN Task Force Recommendations. Performed By: #### 4 [id number] #### LAB [address] [address] Moody Martinez M.D. [id number] Sodium [Moles/Vol] 128 mmol/L Low 135-145 [facility] Comment on above: Order Comment: [facility] has implemented the eGFR calculation approach that does not have a coefficient for race that conforms to the NKF-ASN Task Force Recommendations. Performed By: #### 4 6126 #### LAB [address] [address] Moody Martinez M.D. [id number] Urea nitrogen [Mass/Vol] 93 mg/dL High 8-25 [facility] Comment on above: Order Comment: [facility] has implemented the eGFR calculation approach that does not have a coefficient for race that conforms to the NKF-ASN Task Force Recommendations. Performed By: #### 4 6126 #### LAB [address] [address] Moody Martinez M.D. [id number] Urea nitrogen/Creatinine [Mass ratio] 36.5 mg/mg High 10.0-20.0 [facility] Comment on above: Order Comment: [facility] has implemented the eGFR calculation approach that does not have a coefficient for race that conforms to the NKF-ASN Task Force Recommendations. Performed By: #### 4 [id number] #### LAB [address] [address] Moody Martinez M.D. [id number] Albumin [Mass/Vol] 3.5 g/dL Normal 3.2-5.2 [facility] Comment on above: Order Comment: [facility] has implemented the eGFR calculation approach that does not have a coefficient for race that conforms to the NKF-ASN Task Force Recommendations. Performed By: #### 4 [id number] #### LAB [address] [address] Moody Martinez M.D. [id number] ALP [Catalytic activity/Vol] 92 U/L Normal 40-150 [facility] Comment on above: Order Comment: [facility] has implemented the eGFR calculation approach that does not have a coefficient for race that conforms to the NKF-ASN Task Force Recommendations. Performed By: #### 4 [id number] #### LAB [address] [address] Moody Martinez M.D. [id number] ALT [Catalytic activity/Vol] 21 U/L Normal 0-50 U/L [facility] Comment on above: Order Comment: [facility] has implemented the eGFR calculation approach that does not have a coefficient for race that conforms to the NKF-ASN Task Force Recommendations. Performed By: #### 4 6126 #### LAB [address] [address] Moody Martinez M.D. [id number] Anion gap [Moles/Vol] 20 mmol/L Normal 10-20 [facility] Comment on above: Order Comment: [facility] has implemented the eGFR calculation approach that does not have a coefficient for race that conforms to the NKF-ASN Task Force Recommendations. Performed By: #### 4 [id number] #### LAB [address] [address] Moody Martinez M.D. [id number] AST [Catalytic activity/Vol] 14 U/L Normal 0-50 U/L [facility] Comment on above: Order Comment: [facility] has implemented the eGFR calculation approach that does not have a coefficient for race that conforms to the NKF-ASN Task Force Recommendations. Performed By: #### 4 6126 #### LAB [address] [address] Moody Martinez M.D. [id number] Bilirubin [Mass/Vol] 0.3 mg/dL Normal 0.0-1.3 [facility] Comment on above: Order Comment: [facility] has implemented the eGFR calculation approach that does not have a coefficient for race that conforms to the NKF-ASN Task Force Recommendations. Performed By: #### 4 6126 #### LAB [address] [address] Moody Martinez M.D. [id number] Calcium [Mass/Vol] 8.7 mg/dL Normal 8.4-10.2 [facility] Comment on above: Order Comment: [facility] has implemented the eGFR calculation approach that does not have a coefficient for race that conforms to the NKF-ASN Task Force Recommendations. Performed By: #### 4 6126 #### LAB [address] [place], [place] [address] Moody Martinez M.D. [id number] Chloride [Moles/Vol] 99 mmol/L Normal 98-108 [facility] Comment on above: Order Comment: [facility] has implemented the eGFR calculation approach that does not have a coefficient for race that conforms to the NKF-ASN Task Force Recommendations. Performed By: #### 4 6126 #### LAB [address] [place], [place] [address] Moody Martinez M.D. [id number] Creatinine [Mass/Vol] 2.60 mg/dL High 0.80-1.30 [facility] Comment on above: Order Comment: [facility] has implemented the eGFR calculation approach that does not have a coefficient for race that conforms to the NKF-ASN Task Force Recommendations. Performed By: #### 4 6126 #### LAB [address] [place], [place] [address] Moody Martinez M.D. [id number] EGFR 24 mL/min/1.73 m2 Low >=60 [facility] Comment on above: Order Comment: [facility] has implemented the eGFR calculation approach that does not have a coefficient for race that conforms to the NKF-ASN Task Force Recommendations. Result Comment: Albin mated GFR was calculated using the 2020 CKD-EPI creatinine equation. Performed By: #### 4 6126 ####[facility] LAB [address] [place], [place] [address] Moody Martinez M.D. [id number] Glucose [Mass/Vol] 467 mg/dL Off scale high 65-99 [facility] Comment on above: Order Comment: [facility] has implemented the eGFR calculation approach that does not have a coefficient for race that conforms to the NKF-ASN Task Force Recommendations. Performed By: #### 4 6126 #### LAB [address] [address] Moody Martinez M.D. [id number] HCO3 (Bld) [Moles/Vol] 17 mmol/L Low 21-32 [facility] Comment on above: Order Comment: [facility] has implemented the eGFR calculation approach that does not have a coefficient for race that conforms to the NKF-ASN Task Force Recommendations. Performed By: #### 4 6126 #### LAB [address] [address] Moody Martinez M.D. [id number] Potassium [Moles/Vol] 6.3 mmol/L Off scale high 3.5-5.1 [facility] Comment on above: Order Comment: [facility] has implemented the eGFR calculation approach that does not have a coefficient for race that conforms to the NKF-ASN Task Force Recommendations. Performed By: #### 4 6126 #### LAB [address] [address] Moody Martinez M.D. [id number] Protein [Mass/Vol] 5.6 g/dL Low 6.0-8.0 [facility] Comment on above: Order Comment: [facility] has implemented the eGFR calculation approach that does not have a coefficient for race that conforms to the NKF-ASN Task Force Recommendations. Performed By: #### 4 6126 #### LAB [address] [address] Modoy Martinez M.D. [id number] Sodium [Moles/Vol] 130 mmol/L Low 135-145 [facility] Comment on above: Order Comment: [facility] has implemented the eGFR calculation approach that does not have a coefficient for race that conforms to the NKF-ASN Task Force Recommendations. Performed By: #### 4 6126 #### LAB [address] [address] Moody Martinez M.D. [id number] Urea nitrogen [Mass/Vol] 92 mg/dL High 8-25 [facility] Comment on above: Order Comment: [facility] has implemented the eGFR calculation approach that does not have a coefficient for race that conforms to the NKF-ASN Task Force Recommendations. Performed By: #### 4 6126 #### LAB [address] [place], [place] [address] Moody Martinez M.D. [id number] Urea nitrogen/Creatinine [Mass ratio] 35.4 mg/mg High 10.0-20.0 [facility] Comment on above: Order Comment: [facility] has implemented the eGFR calculation approach that does not have a coefficient for race that conforms to the NKF-ASN Task Force Recommendations. Performed By: #### 4 6126 #### LAB [address] [place], [place] [address] Moody Martinez M.D. [id number] CORONARY ANGIOGRAPHY 10-27 CORONARY ANGIOGRAPHY This is [...] significant gradient across the aortic valve. Normal [facility] CT CHEST WITHOUT CONTRASTon 10-27-2024 CT [...] the subcutaneous tissues of the chest wall. 1-4 [employer] Workstation ID: [id number] Dictated by: KAHLIL VARGHESE on WedOct 27, 2024 1:25:27 PM EST Transcribed by: WARREN PRITCHARD on WedOct 27, 2024 1:31:49 PM EST Finalized by: KAHLIL VARGHESE on WedOct 27, 2024 3:01:00 PM EST Normal [facility] Comment on above: Order Comment: [...] the subcutaneous tissues of the chest wall. 1-4 [employer] Workstation ID: [id number] [facility] EXAMINATION: CT CHEST WITHOUT CONTRAST HISTORY: ORDERING [...] STRUCTURES: No aggressive bone lesions. Intact sternum. [employer] Kahlil Tyler, - 10/27/2024 EXAMINATION: CT CHEST [...] the subcutaneous tissues of the chest wall. [employer] Workstation ID: [id number] [facility] Radiology Study observation (narrative) [facility] Cardiac Catheterizationon Impression: Multivessel complex [...] no significant gradient across the aortic valve. Tube2Tone CV [facility] Citrated TEG (Cardiac) with HeparinaseOrdered By: Burton Zendejas on 10-27-2024 (CFF-FLEV) Cit. Func.Fib.Estimated Func.Fibrinogen Level 381.4 mg/dL 278.0 - 581.0 mg/dL [facility] Clot angle TEG (Bld) [Angle] 73.2 deg 63.0 - 78.0 deg [facility] Clot formation TEG (Bld) [Time] 1.3 min 0.8 - 2.1 min [facility] Clotting time after addition of heparinase TEG (Bld) 7.6 min 4.3 - 8.3 min [facility] Clotting time.intrinsic coagulation system activated Rotational TEG (Bld) 16.4 min High 4.6 - 9.1 min [facility] Interpretation and review of laboratory results Abnormal [facility] Maximum clot firmness TEG (Bld) [Length] 50.9 mm Low 52.0 - 69.0 mm [facility] Maximum clot firmness TEG (Bld) [Length] 20.9 mm 15.0 - 32.0 mm [facility] Maximum clot firmness.extrinsic coagulation system activated Rotational TEG (Bld) [Length] 62.3 mm 52.0 - 70.0 mm [facility] Comprehensive metabolic 2000 panelOrdered By: Ya Izaguirre on 10-27-2024 Albumin [Mass/Vol] 3.4 g/dL 3.2 - 5.2 g/dL [facility] ALP [Catalytic activity/Vol] 86 U/L 40 - 150 U/L [facility] ALT [Catalytic activity/Vol] 13 U/L 0-50 U/L [facility] Anion gap [Moles/Vol] 20 mmol/L 10 - 2 0 mmol/L [facility] AST [Catalytic activity/Vol] 12 U/L 0-50 U/L [facility] Bilirubin [Mass/Vol] 0.3 mg/dL 0.0 - 1 .3 mg/dL [facility] Calcium [Mass/Vol] 8.4 mg/dL 8.4 - 10. 2 mg/dL [facility] Chloride [Moles/Vol] 99 mmol/L 98 - 10 8 mmol/L [facility] Creatinine [Mass/Vol] 2.55 mg/dL High 0.80 - 1.30 mg/dL [facility] GFR/1.73 sq M.predicted CKD-EPI (S/P/Bld) [Vol rate/Area] 25 Low - PINF [facility] Comment on above: Estimated GFR was ca lculated using the 2020 CKD-EPI creatinine equation. Glucose [Mass/Vol] 564 mg/dL Critically high 65 - 99 mg/d L [facility] HCO3 [Moles/Vol] 15 mmol/L Low 21 - 32 mmol/L [facility] Potassium [Moles/Vol] 5.9 mmol/L High 3.5 - 5.1 mmol/L [facility] Protein [Mass/Vol] 5.8 g/dL Low 6.0 - 8.0 g/dL [facility] Sodium [Moles/Vol] 128 mmol/L Low 135 - 145 mmol/L [facility] Urea nitrogen [Mass/Vol] 93 mg/dL High 8 - 25 mg/d L [facility] Urea nitrogen/Creatinine [Mass ratio] 36.5 mg/mg High 10.0 - 20.0 [facility] has implemented the eGFR calculation approach that does not have a coefficient for race that conforms to the NKF-ASN Task Force Recommendations. [facility] Comprehensive metabolic 2000 panelOrdered By: Rosalia March on 10-27-2024 Albumin [Mass/Vol] 3.5 g/dL 3.2 - 5.2 g/dL [facility] ALP [Catalytic activity/Vol] 92 U/L 40 - 150 U/L [facility] ALT [Catalytic activity/Vol] 21 U/L 0-50 U/L [facility] Anion gap [Moles/Vol] 20 mmol/L 10 - 2 0 mmol/L [facility] AST [Catalytic activity/Vol] 14 U/L 0-50 U/L [facility] Bilirubin [Mass/Vol] 0.3 mg/dL 0.0 - 1 .3 mg/dL [facility] Calcium [Mass/Vol] 8.7 mg/dL 8.4 - 10. 2 mg/dL [facility] Chloride [Moles/Vol] 99 mmol/L 98 - 10 8 mmol/L [facility] Creatinine [Mass/Vol] 2.6 mg/dL High 0.80 - 1.30 mg/dL [facility] GFR/1.73 sq M.predicted CKD-EPI (S/P/Bld) [Vol rate/Area] 24 Low - PINF [facility] Comment on above: Estimated GFR was ca lculated using the 2020 CKD-EPI creatinine equation. Glucose [Mass/Vol] 467 mg/dL Critically high 65 - 99 mg/d L [facility] HCO3 [Moles/Vol] 17 mmol/L Low 21 - 32 mmol/L [facility] Interpretation and review of laboratory results Abnormal [facility] Potassium [Moles/Vol] 6.3 mmol/L Critically high 3.5 - 5.1 mmol/L [facility] Protein [Mass/Vol] 5.6 g/dL Low 6.0 - 8.0 g/dL [facility] Sodium [Moles/Vol] 130 mmol/L Low 135 - 145 mmol/L [facility] Urea nitrogen [Mass/Vol] 92 mg/dL High 8 - 25 mg/d L [facility] Urea nitrogen/Creatinine [Mass ratio] 35.4 mg/mg High 10.0 - 20.0 [facility] Services has implemented the eGFR calculation approach that does not have a coefficient for race that conforms to the NKF-ASN Task Force Recommendations. [facility] ECHOCARDIOGRAM COMPLETEon ECHOCARDIOGRAM COMPLETE Patient Info Name: ENOC ARMANDO Age: 78 years : 1945 Gender: Male Ht: 170 cm Wt: 66 kg BSA: 1.77 m2 HR: 63 bpm BP: 148 / 55 mmHg Heart Rhythm: Sinus Arrhythmia Technical Quality: Fair Exam Date: 10/27/2024 1:22 PM Patient Status: Outpatient [employer] Lieutenant: Jyoti Perez RDCS Exam Type: ECHOCARDIOGRAM COMPLETE Study Info Indications - Abnormal electrocardiogram [ECG] [EKG] Referring Physician: MARIE Arriaga; [id number] BMI: 22.71 kg/m2 Summary 1. Normal LV [...] Factors Hypertension: Yes Dyslipidemia: Yes Myocardial Infarction (WI): No Congestive Heart Failure (CHF): Hx CHF [...] mmHg MV VTI 56 cm MV Decel Tensas 850 cm/s2 MV PHT 90 ms MV [...] Average 7. (more content not included)... Normal [facility] Echo completeOrdered By: Fauzia Garay on 10-27-2024 Aortic valve area 3.24615 cm [facility] Work Phone: [phone] AV mean gradient [address] [facility] Work Phone: [phone] AV peak gradient 7.[address] [facility] Work Phone: [phone] 70.2889 % [facility] Work Phone: [phone] [facility] Work Phone: Echo completeon 10-27-2024 Patient Info Name: ENOC ARMANDO Age: 78 years : 1945 Gender: Male Ht: 170 cm Wt: 66 kg BSA: 1.77 m2 HR: 63 bpm BP: 148 / 55 mmHg Heart Rhythm: Sinus Arrhythmia Technical Quality: Fair Exam Date: 10/27/2024 1:22 PM Patient Status: Outpatient [employer] Lieutenant: Jyoti Perez RDCS Exam Type: ECHOCARDIOGRAM COMPLETE Study Info Indications - Abnormal electrocardiogram [ECG] [EKG] Referring Physician: MARIE Arriaga; [id number] BMI: 22.71 kg/m2 Summary 1. Normal LV [...] Factors Hypertension: Yes Dyslipidemia: Yes Myocardial Infarction ([place]): No Congestive Heart Failure (CHF): Hx CHF [...] Date: 10/27/2024 1:22 PM Patient Status: Outpatient [employer] Lieutenant: Jyoti Perez [facility] Exam Type: ECHOCARDIOGRAM COMPLETE Study Info Indications - Abnormal electrocardiogram [ECG] [EKG] Referring Physician: MARIE Arriaga; [id number] BMI: 22.71 kg/m2 Summary 1. Normal LV [...] Factors Hypertension: Yes Dyslipidemia: Yes Myocardial Infarction ([place]): No Congestive Heart Failure (CHF): Hx CHF [...] mmHg MV VTI 56 cm MV Decel Tensas 850 cm/s2 MV PHT 90 ms MV [...] Velocity 6.3 cm/ (more content not included)... [facility] Glucose (d) [Mass/Vol]on 12-28-2023 Glucose [Mass/Vol] mg/dL Critically high 65 - 99 mg/d L [facility] Interpretation and review of laboratory results Abnormal [facility] Critical result acted upon time of test. Test performed at bedside. [facility] Glucose [Mass/Vol] mg/dL Critically high 65 - 99 mg/d L [facility] Interpretation and review of laboratory results Abnormal [facility] Critical result acted upon time of test. Test performed at bedside. [facility] Glucose [Mass/Vol] 369 mg/dL High 65 - 99 mg/dL [facility] Interpretation and review of laboratory results Abnormal [facility] Glucose [Mass/Vol] 381 mg/dL High 65 - 99 mg/dL [facility] Interpretation and review of laboratory results Abnormal [facility] Glucose [Mass/Vol] 385 mg/dL High 65 - 99 mg/dL [facility] Interpretation and review of laboratory results Abnormal [facility] Glucose [Mass/Vol] 498 mg/dL Critically high 65 - 99 mg/d L [facility] Interpretation and review of laboratory results Abnormal [facility] Critical result acted upon time of test. Test performed at bedside. [facility] Glucose [Mass/Vol] 279 mg/dL High 65 - 99 mg/dL [facility] Interpretation and review of laboratory results Abnormal [facility] HEMOGLOBIN A1Con 10-27-2024 Glucose [Mass/Vol] 237 mg/dL High 74-114 [facility] Comment on above: Performed By: #### [id number] ####[facility] [address] [place] [address] Moody Martinez M.D. [id number] HbA1c (Bld) [Mass fraction] 9.9 % High 4.2-5.6 [facility] Comment on above: Performed By: #### 4 8202 ####[facility] [address] [place] [address] Moody Martinez M.D. [id number] Glucose [Mass/Vol] 232 mg/dL High 74-114 [facility] Comment on above: Performed By: #### 4 8202 ####[facility] [address] [place] [address] Moody Martinez M.D. [id number] HbA1c (Bld) [Mass fraction] 9.7 % High 4.2-5.6 [facility] Comment on above: Performed By: #### 4 8202 #### LAB [address] [place] [address] Moody Martinez M.D. [id number] HbA1c (Bld) [Mass fraction]o n 10-27-2024 Average glucose Estimated from glycated hemoglobin (Bld) [Mass/Vol] 232 mg/dL High 74 - 114 mg/dL [facility] Interpretation and review of laboratory results Abnormal [facility] Hemoglobin A1con 10-27-2024 HbA1c (Bld) [Mass fraction] 9.7 % High 4.2 - 5.6 % [facility] INR Coag (PPP) [Relative concha e]on 10-27-2024 Interpretation and review of laboratory results Normal [facility] PT Coag (PPP) [Time] 14.3 s [facility] During the induction phase of oral anticoagulation, the INR may not reflect the anticoagulation status of the patient. Therapeutic ranges for INR's are: Most clinical situations: INR 2.0-3.0 Mechanical Prosthetic Valve: INR 2.5-3.5 Critical: INR >5.0 [facility] LACTIC ACID, PLASMAon 2023 LACTIC ACID, PLASMA 1.6 mmol/L Normal 0.6-2.0 [facility] Comment on above: Performed By: #### 4 6932 #### [facility] [address] [place], [place] [address] Moody Martinez M.D. [id number] LIPASEon 10-27-2024 Lipase [Catalytic activity/Vol] 56 U/L Normal 15-65 [facility] Comment on above: Performed By: #### 4 6086 #### LAB [address] [place], [place] [address] Moody Martinez M.D. [id number] Lactate [Moles/Vol]on 2023 Interpretation and review of laboratory results Normal [facility] Lactic Acid, Plasmaon 2023 Lactate [Moles/Vol] 1.6 mmol/L 0.6 - 2. 0 mmol/L [facility] Lipaseon 10-27-2024 Lipase [Catalytic activity/Vol] 56 U/L 15 - 65 U/L [facility] MAGNESIUM LEVELon 10-27-2024 Magnesium [Mass/Vol] 2.6 mg/dL High 1.6-2.4 [facility] Comment on above: Performed By: #### 4 6109 #### LAB [address] [place], [place] [address] Moody Martinez M.D. [id number] Magnesium [Mass/Vol] 2.5 mg/dL High 1.6-2.4 [facility] Comment on above: Performed By: #### 4 6109 #### LAB [address] [place] [address] Moody Martinez M.D. [id number] Magnesium Levelon 10-27-2024 Magnesium [Mass/Vol] 2.5 mg/dL High 1.6 - 2 .4 mg/dL [facility] No Panel InformationOrdered By: Ya Izaguirre on 10-27-2024 Interpretation and review of laboratory results Abnormal [facility] No Panel Informationon 10-27 Interpretation and review of laboratory results Normal [facility] PHOSPHORUSon 10-27-2024 Phosphate [Mass/Vol] 4.4 mg/dL High 2.3-3.7 [facility] Comment on above: Performed By: #### 4 6299 #### LAB [address] [place] [address] Moody Martinez M.D. [id number] Phosphate [Mass/Vol] 5.2 mg/dL High 2.3-3.7 [facility] Comment on above: Performed By: #### 4 4014 #### LAB [address] [place] [address] Moody Martinez M.D. [id number] POC ARTERIAL BLOOD GAS PANEL -[facility] 10-27-2024 [id number] 19.6 mm Hg [facility] Comment on above: Performed By: #### 4 8716 ####[facility] [address] [place] [address] Moody Martinez M.D. [id number] BASE EXCESS, ARTERIAL -7.5 Low -2.0-2.0 [facility] Comment on above: Performed By: #### 4 8716 ####[facility] [address] [place] [address] Moody Martinez M.D. [id number] FIO2 21 Normal [facility] Comment on above: Performed By: #### 4 8716 ####[facility] [address] [place] [address] Moody Martinez M.D. [id number] HCO3 (Bld) [Moles/Vol] 17.5 mmol/L Low 22.0-26.0 [facility] Comment on above: Performed By: #### 4 8716 ####[facility] [address] [place] [address] Moody Martinez M.D. [id number] Hematocrit (Bld) [Volume fraction] 30.0 % Low 41.0-53.0 [facility] Comment on above: Performed By: #### 4 8716 ####[facility] [address] [place] [address] Moody Martinez M.D. [id number] Hemoglobin (Bld) [Mass/Vol] 9.8 g/dL Low 13.5-17.5 [facility] Comment on above: Performed By: #### 4 8716 ####[facility] [address] [place] [address] Moody Martinez M.D. [id number] Oxygen saturation in Blood 97.3 % Normal 92.0-99.0 [facility] Comment on above: Performed By: #### 4 8716 #### LAB [address] [place] [address] Moody Martinez M.D. [id number] PCO2 ARTERIAL 32.9 mm Hg Low 35.0-45.0 [facility] Comment on above: Performed By: #### 4 8716 ####[facility] [address] [place] [address] Moody Martinez M.D. [id number] PH ARTERIAL 7.33 Low 7.35-7.45 [facility] Comment on above: Performed By: #### 4 8716 #### LAB [address] [place] [address] Moody Martinez M.D. [id number] PO2 ARTERIAL 85 mm Hg Normal 75-85 [facility] Comment on above: Performed By: #### 4 8716 #### LAB [address] [place] [address] Moody Martinez M.D. [id number] SPECIMEN SOURCE RADIANCE Radial, left Normal [facility] Comment on above: Performed By: #### 4 8716 #### LAB [address] [place] [address] Moody Martinez M.D. [id number] POC Arterial Blood Gas Panel -[facility] 10-27-2024 Alveolar-arterial oxygen Partial pressure difference 19.6 mm Hg [facility] Base excess Calc (Bld) [Moles/Vol] -7.5000 mmol/L Low -2.0 - 2.0 [facility] CO2 (Bld) [Partial pressure] 32.9 mm[Hg] Low [facility] Hematocrit (BldA) [Volume fraction] 30 % Low 41.0 - 53.0 % [facility] Inhaled oxygen concentration 21 % [facility] Interpretation and review of laboratory results Abnormal [facility] Oxygen (Bld) [Partial pressure] 85 mm[Hg] [facility] pH (Bld) 7.33 [pH] Low 7.35 - 7.45 [facility] Specimen source Nom (Unsp spec) Radial, left [facility] POC GLUCOSE - [facility] 10-27-2 024 Glucose [Mass/Vol] 443 mg/dL Off scale [address] Comment on above: Order Comment: Criti christian result acted upon time of test. Test performed at bedside. Performed By: #### 4 6944 #### LAB [address] [place] [address] Moody Martinez M.D. [id number] POC GLUCOSE > Off scale [address] Comment on above: Order Comment: Criti christian result acted upon time of test. Test performed at bedside. Performed By: #### 4 6905 ####[facility] [address] [place] [address] Moody Martinez M.D. [id number] POC GLUCOSE > Off scale [address] Comment on above: Order Comment: Criti christian result acted upon time of test. Test performed at bedside. Performed By: #### 4 2085 #### LAB [address] [place] [address] Moody Martinez M.D. [id number] POC GLUCOSE > Off scale [address] Comment on above: Order Comment: Criti christian result acted upon time of test. Test performed at bedside. Performed By: #### 4 6954 #### LAB [address] [place] [address] Moody Martinez M.D. [id number] Glucose [Mass/Vol] 369 mg/dL [address] Comment on above: Performed By: #### 4 6955 #### LAB [address] [place] [address] Moody Martinez M.D. [id number] Glucose [Mass/Vol] 381 mg/dL [address] Comment on above: Performed By: #### 4 6937 #### LAB [address] [place] [address] Moody Martinez M.D. [id number] Glucose [Mass/Vol] 385 mg/dL [address] Comment on above: Performed By: #### 4 6932 #### LAB [address] [place] [address] Moody Martinez M.D. [id number] Glucose [Mass/Vol] 498 mg/dL Off scale high 65-99 [facility] Comment on above: Order Comment: Criti christian result acted upon time of test. Test performed at bedside. Performed By: #### 4 6932 #### LAB [address] [place] [address] Moody Martinez M.D. [id number] Glucose [Mass/Vol] 279 mg/dL High 65-99 [facility] Comment on above: Performed By: #### L [id number] #### LAB [address] [place] [address] Moody Martinez M.D. [id number] POTASSIUM LEVELon 10-27-2024 Potassium [Moles/Vol] 3.4 mmol/L Low 3.5-5.1 [facility] Comment on above: Performed By: #### 4 6351 #### LAB [address] [place] [address] Moody Martinez M.D. [id number] PREALBUMINon 10-27-2024 Prealbumin [Mass/Vol] 15.9 mg/dL Low 20.0-40.0 [facility] Comment on above: Performed By: #### 4 4014 #### LAB [address] [place] [address] Moody Martinez M.D. [id number] PT/INRon 10-27-2024 INR Coag (PPP) [Relative time] 1.1 {INR} 0.8 - 1.1 [facility] INR Coag (PPP) [Relative time] 1.1 {INR} Normal 0.8-1.1 [facility] Comment on above: Order Comment: Janet good the induction phase of oral anticoagulation, the INR may not reflect the anticoagulation status of the patient. Therapeutic ranges for INR's are:Most clinical situations: INR 2.0-3.0Mechanical Prosthetic Valve: INR 2.5-3.5Critical: INR >5.0 Performed By: #### 4 6932 #### LAB [address] [place], [place] [address] Moody Martinez M.D. [id number] PT Coag (PPP) [Time] 14.3 s Normal 11.8-14.3 [facility] Comment on above: Order Comment: Janet good the induction phase of oral anticoagulation, the INR may not reflect the anticoagulation status of the patient. Therapeutic ranges for INR's are:Most clinical situations: INR 2.0-3.0Mechanical Prosthetic Valve: INR 2.5-3.5Critical: INR >5.0 Performed By: #### 4 6932 #### LAB [address] [place], [place] [address] Moody Martinez M.D. [id number] Phosphoruson 10-27-2024 Phosphate [Mass/Vol] 5.2 mg/dL High 2.3 - 3 .7 mg/dL [facility] Potassium Levelon 10-27-2024 Potassium [Moles/Vol] 3.4 mmol/L Low 3.5 - 5.1 mmol/L [facility] Potassium [Moles/Vol]on 10-02 Interpretation and review of laboratory results Abnormal [facility] Prealbuminon 10-27-2024 Prealbumin [Mass/Vol] 15.9 mg/dL Low 20.0 - 40.0 mg/dL [facility] Prealbumin [Mass/Vol]on 10-02 Interpretation and review of laboratory results Abnormal [facility] Segmental Doppler Lower Extr emity Arterialon 10-27-2024 Patient Info Name: ENOC ARMANDO Age: 78 years : 1945 Gender: Male Exam Date: 10/27/2024 9:50 AM Patient Status: Outpatient Interactive Developer: Ya Jacob Referring Physician: ZOILA POLLARD; Indications I73.9 - Peripheral vascular disease, unspecified Procedure Description 48158 Limited bilateral noninvasive physiologic studies of upper [...] Date: 10/27/2024 9:50 AM Patient Status: Outpatient Interactive Developer: Ya Jacob Yadira Referring Physician: ZOILA POLLARD; Indications I73.9 - Peripheral vascular disease, unspecified Procedure Description 01520 Limited bilateral noninvasive physiologic studies of upper [...] JO-ANN Nguyen DO on 10/27/2024 01:14 PM [facility] T4, FREEon 10-27-2024 Free T4 [Mass/Vol] 1.3 ng/dL Normal 0.7-1.7 [facility] Comment on above: Performed By: #### 4 6567 #### LAB [address] [place] [address] Moody Martinez M.D. [id number] T4, Freeon 10-27-2024 Free T4 [Mass/Vol] 1.3 ng/dL 0.7 - 1.7 ng/dL [facility] TEG PLATELET MAPPING ([facility])on 10-27-2024 (AA-%AGGREGATION) AA PERCENT AGGREGATION 12.1 % Low 89.0-100.0 [facility] Comment on above: Performed By: #### L [id number] #### LAB [address] [place] [address] Moody Martinez M.D. [id number] (AA-%INHIBITION) AA PERCENT INHIBITION 87.9 % High 0.0-11.0 [facility] Comment on above: Performed By: #### L [id number] ####[facility] [address] [place] [address] Moody Martinez M.D. [id number] (AA-MA) AA MAXIMUM AMPLITUDE 14.7 mm Low 51.0-71.0 [facility] Comment on above: Performed By: #### L [id number] ####[facility] [address] [place] [address] Moody Martinez M.D. [id number] (ACTF-MA) ACTIVATOR F MAXIMUM AMPLITUDE 7.8 mm Normal 2.0-19.0 [facility] Comment on above: Performed By: #### L [id number] ####[facility] [address] [place] [address] Moody Martinez M.D. [id number] (ADP-%AGGREGATION) ADP PERCENT AGGREGATION 61.2 % Low 83.0-100.0 [facility] Comment on above: Performed By: #### L [id number] ####[facility] LAB [address] [place] [address] Moody Martinez M.D. [id number] (ADP-%INHIBITION) ADP PERCENT INHIBITION 38.8 % High 0.0-17.0 [facility] Comment on above: Performed By: #### L [id number] #### LAB [address] [place] [address] Moody Martinez M.D. [id number] (ADP-MA) ADP MAXIMUM AMPLITUDE 42.7 mm Low 45.0-69.0 [facility] Comment on above: Performed By: #### L [id number] #### LAB [address] [place] [address] Moody Martinez M.D. [id number] (HKH-MA) KAOLIN WITH HEPARINASE MAXIMUM AMPLITUDE 64.8 mm Normal 53.0-68.0 [facility] Comment on above: Performed By: #### L [id number] #### LAB [address] [place] [address] Moody Martinez M.D. [id number] TEG Platelet Mapping (Cardia c)on 10-27-2024 (AA-%Aggregation) AA Percent Aggregation 12.1 % Low 89.0 - 100.0 % [facility] (AA-%Inhibition) AA Percent Inhibition 87.9 % High 0.0 - 11.0 % [facility] (ADP-% Aggregation) ADP Percent Aggregation 61.2 % Low 83.0 - 100.0 % [facility] (ADP-%Inhibition) ADP PERCENT INHIBITION 38.8 % High 0.0 - 17.0 % [facility] Interpretation and review of laboratory results Abnormal [facility] Maximum amplitude AA induced Resonance TEG (Bld) [Length] 14.7 mm Low 51.0 - 71.0 mm [facility] Maximum amplitude activator F induced Resonance TEG (Bld) [Length] 7.8 mm 2.0 - 19.0 mm [facility] Maximum amplitude ADP induced Resonance TEG (Bld) [Length] 42.7 mm Low 45.0 - 69.0 mm [facility] Maximum amplitude kaolin induced after addition of heparinase Resonance TEG (Bld) [Length] 64.8 mm 53.0 - 68.0 mm [facility] TSHon 10-27-2024 TSH Qn 0.48 m[IU]/L Normal 0.27-4.20 [facility] Comment on above: Performed By: #### 4 6932 #### LAB [address] [place] [address] Moody Martinez M.D. 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 [id number] SQUAMOUS EPITHELIAL < Normal 0-4 [facility] Comment on above: Order Comment: Injur y/Trauma or Illness?:Illness/Other How long have you had these symptoms (acute/chronic)?:Acute Reason for exam?:cross clamp of aorta for CPB Type of Exam?:Initial Additional signs and symptoms?:cp Performed By: #### 4 6633 #### LAB [address] [place] [address] Moody Martinez M.D. 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 [id number] URINE AEROBIC CULTUREon 10-02 URINE AEROBIC CULTURE URINE CULTURE No Growth (<1,000 CFU/mL) Normal [facility] Comment on above: Order Comment: If PO SITIVE, send for sensitivities per cardiac surgeon Performed By: #### 4 4053 ####[facility] [address] [place] [address] Jose Cisse M.D. [id number] US DOPPLER CAROTIDon 024 US DOPPLER CAROTID Patient Info Name: ENOC ARMANDO Age: 78 years : 1945 Gender: Male Exam Date: 10/27/2024 10:32 AM Patient Status: Outpatient Interactive Developer: Lori Fagan RDMS (AB), RVS Referring Physician: MARIE Arriaga; Indications Z01.810 - Encounter for preprocedural cardiovascular examination I65.23 - Occlusion and stenosis of bilateral carotid arteries Procedure Description 97400 Duplex examination using B-mode, color and spectral [...] Results c (more content not included)... Normal [facility] Comment on above: Order Comment: Dr. Sudha Parker to read US DOPPLER SEGMENTAL ARTERIA L LEGS BILATERALon 10-27-2024 US DOPPLER SEGMENTAL ARTERIAL LEGS BILATERAL Patient Info Name: ENOC RAMANDO Age: 78 years : 1945 Gender: Male Exam Date: 10/27/2024 9:50 AM Patient Status: Outpatient Interactive Developer: Ya Jacob Referring Physician: ZOILA POLLARD; Indications I73.9 - Peripheral vascular disease, unspecified Procedure Description 79336 Limited bilateral noninvasive physiologic studies of upper [...] JO-ANN Nguyen DO on 10/27/2024 01:14 PM [facility] US RADIAL ARTERY MAPPING KARIN ATERALon 10-27-2024 US RADIAL ARTERY MAPPING BILATERAL Patient Info Name: ENOC ARMANDO Age: 78 years : 1945 Gender: Male Exam Date: 10/27/2024 11:23 AM Patient Status: Outpatient Interactive Developer: Lori Fagan RDMS (AB), RVS Referring Physician: MARIE Arriaga; Indications - possible radial artery harvest Z01.810 - Encounter for preprocedural cardiovascular examination Procedure Description 13834 Duplex scan of upper extremity arteries or [...] Kristy Parker MD on 10/27/2024 11:50 AM [facility] Radial Artery Mapping Karin bone 10-27-2024 Patient Info Name: ENOC ARMANDO Age: 78 years : 1945 Gender: Male Exam Date: 10/27/2024 11:23 AM Patient Status: Outpatient Interactive Developer: Lori Fagan RDMS (AB), RVS Referring Physician: MARIE Arriaga; Indications - possible radial artery harvest Z01.810 - Encounter for preprocedural cardiovascular examination Procedure Description 29448 Duplex scan of upper extremity arteries or [...] Date: 10/27/2024 11:23 AM Patient Status: Outpatient Interactive Developer: Lori Fagan RDMS (AB), RVS Referring Physician: MARIE Arriaga; Indications - possible radial artery harvest Z01.810 - Encounter for preprocedural cardiovascular examination Procedure Description 32748 Duplex scan of upper extremity arteries or [...] Kristy Parker MD on 10/27/2024 11:50 AM [facility] SAPHENOUS VEIN MAPon 12-2 US SAPHENOUS VEIN MAP Patient Info Name: ENOC ARMANDO Age: 78 years : 1945 Gender: Male Exam Date: 10/27/2024 11:13 AM Patient Status: Outpatient Interactive Developer: Lori Fagan RDMS (AB), RVS Referring Physician: MARIE Arriaga; Indications - GSV harvest Z01.810 - Encounter for preprocedural cardiovascular examination Procedure Description 28995 Duplex examination using B-mode, color and spectral [...] Kristy Parker MD on 10/27/2024 11:57 AM [facility] Ultrasound Saphenous vein vivi georges 10-27-2024 Patient Info Name: ENOC ARMANDO Age: 78 years : 1945 Gender: Male Exam Date: 10/27/2024 11:13 AM Patient Status: Outpatient Interactive Developer: Lori Fagan RDMS (AB), RVS Referring Physician: MARIE Arriaga; Indications - GSV harvest Z01.810 - Encounter for preprocedural cardiovascular examination Procedure Description 91467 Duplex examination using B-mode, color and spectral [...] Kristy Parker MD on 10/27/2024 11:57 AM [employer]ube[employer] CV Kristy Parker MD - 10/27/2024 Patient Info Name: ENOC ARMANDO Age: 78 years : 1945 Gender: Male Exam Date: 10/27/2024 11:13 AM Patient Status: Outpatient Interactive Developer: Lori Fagan RDMS (AB), RVS Referring Physician: MARIE Arriaga; Indications - GSV harvest Z01.810 - Encounter for preprocedural cardiovascular examination Procedure Description 97980 Duplex examination using B-mode, color and spectral [...] Kristy Parker MD on 10/27/2024 11:57 AM [facility] Ultrasound doppler carotidon 10-27-2024 Patient Info Name: ENOC ARMANDO Age: 78 years : 1945 Gender: Male Exam Date: 10/27/2024 10:32 AM Patient Status: Outpatient Interactive Developer: Lori Fagan RDMS (AB), RVS Referring Physician: MARIE Arriaga; Indications Z01.810 - Encounter for preprocedural cardiovascular examination I65.23 - Occlusion and stenosis of bilateral carotid arteries Procedure Description 70161 Duplex examination using B-mode, color and spectral [...] Date: 10/27/2024 10:32 AM Patient Status: Outpatient Interactive Developer: Lori Fagan RDMS (AB), RVS Referring Physician: MARIE Arriaga; Indications Z01.810 - Encounter for preprocedural cardiovascular examination I65.23 - Occlusion and stenosis of bilateral carotid arteries Procedure Description 09281 Duplex examination using B-mode, color and spectral [...] Patient has a (more content not included)... [facility] Urinalysison 10-27-2024 Bacteria Auto Ql (U) Rare Abnormal None Se en /hpf [facility] Bilirubin Ql (U) Negative Negative [facility] Clarity Refractometry automated (U) Clear Clear [facility] Color (U) Colorless Colorless, Yellow [facility] Epithelial cells.squamous Auto (Urine sed) [#/Area] [facility] alth Glucose Auto test strip (U) [Mass/Vol] 150 mg/dL Abnormal Negative, >=1000 [facility] Hemoglobin Auto test strip Ql (U) Negative Negative [facility] Hyaline casts Auto (Urine sed) [#/Area] 0-2 [facility] Interpretation and review of laboratory results Abnormal [facility] Ketones (U) [Mass/Vol] Negative Negat frank mg/dL [facility] Leukocyte esterase Auto test strip Ql (U) Negative Negative [facility] Mucus Auto (Urine sed) [#/Area] Rare None Seen, Rare /lpf [facility] Nitrite Auto test strip Ql (U) Negative Negative [facility] pH (U) 5 [pH] 5.0 - 7.0 [facility] Protein (U) [Mass/Vol] Negative Negat frank mg/dL [facility] RBC Auto (Urine sed) [#/Area] 1 [facility] Specific gravity (U) [Rel density] 1.017 1.005 - 1.025 [facility] Urobilinogen (U) [Mass/Vol] mg/dL NINF - 2.0 mg/dL [facility] WBC Auto (Urine sed) [#/Area] 1 [facility] Microscopic examination is performed on all urinalysis samples and only positive findings are reported. The test for blood on the chemical analytic portion of urinalysis may also be positive due to hemoglobinuria and myoglobinuria and if red blood cells are present they are quantified by microscopic examination. [facility] XR CHEST AP/PA AND LATon XR [...] WedOct 27, 2024 3:01:09 PM EST Normal [facility] Comment on above: Order Comment: Injur y/Trauma or Illness?:Illness/OtherHow long have you had these symptoms (acute/chronic)?:AcuteReason for exam?:pre opHistory of cancer?:.Surgeries, chemotherapy, or radiation?:cardiac catheterizationType of Exam?:InitialAdditional signs and symptoms?:. XR Chest PA and Lateral and AP lateral-decubituson 10-27-2024 Mild bilateral lower lung atelectasis. JAR/trn Workstation ID: [id number] [employer] RIS EXAMINATION: XR CHEST AP/PA AND LAT [...] atelectasis. No pneumothorax or sizable pleural effusion. [employer] RIS Kahlil Varghese, DO - 10/27/2024 EXAMINATION: [...] lower lung atelectasis. JAR/trn Workstation ID: [id number] [facility] Radiology Study observation (narrative) [facility] XR Chest PA and Lateral and AP lateral-decubitusOrdered By: Kahlil Varghese on 10-27-2024 [facility] Work Phone: aPTT Coag (Bld) [Time]on Interpretation and review of laboratory results Abnormal [facility] Therapeutic range for APTT's is 68 - 104 seconds [facility] BASIC METABOLIC PANELon 10-01 Calcium [Mass/Vol] 8.9 mg/dL Normal 8.6-10.3 [facility] Comment on above: Order Comment: FASTI NG:UNKNOWN FASTING: UNKNOWN Performed By: #### 6 399, 23197 #### [facility] [address], [address] [place] [address] [employer]: Jadon Velez MD Chloride [Moles/Vol] 106 mmol/L Normal 98-110 [facility] Comment on above: Order Comment: FASTI NG:UNKNOWN FASTING: UNKNOWN Performed By: #### 6 399, 98249 #### [facility] [address], [address] [place] [address] [employer]: Jadon Velez MD CO2 [Moles/Vol] 22 mmol/L Normal 20-32 [facility] Comment on above: Order Comment: FASTI NG:UNKNOWN FASTING: UNKNOWN Performed By: #### 6 399, 85520 #### [facility] [address], [address] [place] [address] [employer]: Jadon Velez MD Creatinine [Mass/Vol] 2.36 mg/dL High 0.70-1.22 [facility] Comment on above: Order Comment: FASTI NG:UNKNOWN FASTING: UNKNOWN Performed By: #### 6 399, 94251 #### [facility] [address], [address] [place] [address] [employer]: Jadon Velez MD GFR/1.73 sq M.predicted among non-blacks MDRD (S/P/Bld) [Vol rate/Area] 27 mL/min/{1.73_m2} Low > OR = 60 [facility] Comment on above: Order Comment: FASTI NG:UNKNOWN FASTING: UNKNOWN Performed By: #### 6 399, 02696 #### [facility] [address], [address] [place] [address] [employer]: Jadon Velez MD Glucose [Mass/Vol] 316 mg/dL High 65-99 [facility] Comment on above: Order Comment: FASTI NG:UNKNOWN FASTING: UNKNOWN Result Comment: Fasting reference interval For someone without known diabetes, a glucose value >125 mg/dL indicates that they may have diabetes and this should be confirmed with a follow-up test. Performed By: #### 6 399, 47801 #### [facility] [address], [address] [place] [address] [employer]: Jadon Velez MD Potassium [Moles/Vol] 5.6 mmol/L High 3.5-5.3 [facility] [employer] Comment on above: Order Comment: FASTI NG:UNKNOWN FASTING: UNKNOWN Performed By: #### 6 399, 24081 #### [facility] [address], [address] [place] [address] [employer]: Jadon Velez MD Sodium [Moles/Vol] 137 mmol/L Normal 135-146 [facility] Comment on above: Order Comment: FASTI NG:UNKNOWN FASTING: UNKNOWN Performed By: #### 6 399, 16888 #### [facility] [address], [address] [place] [address] [employer]: Jadon Velez MD Urea nitrogen [Mass/Vol] 66 mg/dL High 7-25 [facility] Comment on above: Order Comment: FASTI NG:UNKNOWN FASTING: UNKNOWN Performed By: #### 6 399, 80839 #### [facility] [address], [address] [place] [address] [employer]: Jadon Velez MD Urea nitrogen/Creatinine [Mass ratio] 28 mg/mg High 6-22 [facility] Comment on above: Order Comment: FASTI NG:UNKNOWN FASTING: UNKNOWN Performed By: #### 6 399, 03285 #### [facility] of [place] [address] [employer]: Jadon Velez MD CBC (INCLUDES DIFF/PLT)on Basophils (Bld) [#/Vol] 0.213 10*3/uL High 0-200 [facility] Comment on above: Performed By: #### 6 399, 37843 #### [facility] of [address], [address] [place] [address] [employer]: Jadon Velez MD Basophils/100 WBC (Bld) 2.6 % Normal [facility] Comment on above: Performed By: #### 6 399, 44764 #### [facility] [place] [address] [employer]: aJdon Velez MD Eosinophils (Bld) [#/Vol] 0.5 10*3/uL Normal 15-500 [facility] Comment on above: Performed By: #### 6 399, 83771 #### [facility] [place] [address] [employer]: Jadon Velez MD Eosinophils/100 WBC (Bld) 6.1 % Normal [facility] Comment on above: Performed By: #### 6 399, 19122 #### [facility] [place] [address] [employer]: Jadon Velez MD Erythrocyte distribution width (RBC) [Ratio] 12.9 % Normal 11.0-15.0 [facility] Comment on above: Performed By: #### 6 399, 13322 #### [facility] [place] [address] [employer]: Jadon Velez MD Hematocrit (Bld) [Volume fraction] 33.8 % Low 38.5-50.0 [facility] Comment on above: Performed By: #### 6 399, 23948 #### [facility] [place] [address] [employer]: Jadon Velez MD Hemoglobin (Bld) [Mass/Vol] 10.9 g/dL Low 13.2-17.1 [facility] Comment on above: Performed By: #### 6 399, 57356 #### [facility] [place] [address] [employer]: aJdon Velez MD Lymphocytes (Bld) [#/Vol] 2.28 10*3/uL Normal 850-3900 [facility] Comment on above: Performed By: #### 6 399, 96942 #### [facility] [place] [address] [employer]: Jadon Velez MD Lymphocytes/100 WBC (Bld) 27.8 % Normal [facility] Comment on above: Performed By: #### 6 399, 27212 #### [facility] [place] [address] [employer]: Jadon Velez MD MCH (RBC) [Entitic mass] 30.9 pg Normal 27.0-33.0 [facility] Comment on above: Performed By: #### 6 399, 95820 #### [facility] [place] [address] [employer]: Jadon Velez MD MCHC (RBC) [Mass/Vol] 32.2 g/dL Normal 32.0-36.0 [facility] Comment on above: Result Comment: For adults, a slight decrease in the calculated MCHC value (in the range of 30 to 32 g/dL) is most likely not clinically significant; however, it should be interpreted with caution in correlation with other red cell parameters and the patient's clinical condition. Performed By: #### 6 399, 57430 #### [facility] [place] [address] [employer]: Jadon Velez MD MCV (RBC) [Entitic vol] 95.8 fL Normal 80.0-100.0 [facility] Comment on above: Performed By: #### 6 399, 56943 #### [facility] [place] [address] [employer]: Jadon Velez MD Monocytes (Bld) [#/Vol] 0.631 10*3/uL Normal 200-950 [facility] Comment on above: Performed By: #### 6 399, 24423 #### [facility] of [address], [address] [place] [address] [employer]: Jadon Velez MD Monocytes/100 WBC (Bld) 7.7 % Normal [facility] Comment on above: Performed By: #### 6 399, 29313 #### [facility] [place] [address] [employer]: Jadon Velez MD Neutrophils (Bld) [#/Vol] 4.576 10*3/uL Normal 1500-78 00 [facility] Comment on above: Performed By: #### 6 399, 42647 #### [facility] [place] [address] [employer]: Jadon Velez MD Neutrophils/100 WBC (Bld) 55.8 % Normal [facility] Comment on above: Performed By: #### 6 399, 70182 #### [facility] [place] [address] [employer]: Jadon Velez MD Platelet mean volume (Bld) [Entitic vol] 11.5 fL Normal 7.5-12.5 [facility] Comment on above: Performed By: #### 6 399, 43438 #### [facility] [place] [address] [employer]: Jadon Velez MD Platelets (Bld) [#/Vol] 289 10*3/uL Normal 140-400 [facility] Comment on above: Performed By: #### 6 399, 88611 #### [facility] [place] [address] [employer]: Jadon Velez MD RBC (Bld) [#/Vol] 3.53 10*6/uL Low 4.20-5.80 [facility] Comment on above: Performed By: #### 6 399, 30585 #### [facility] of [facility] [address], [address] [place] [address] [employer]: Jadon Velez MD WBC (Bld) [#/Vol] 8.2 10*3/uL Normal 3.8-10.8 [facility] Comment on above: Performed By: #### 6 399, 75597 #### [facility] [address], [address] [place] [address] [employer]: Jadon Velez MD Lipid Profileon 09-21-2024 Cholesterol [Mass/Vol] 148 mg/dL Normal 200 [facility] Comment on above: Result Comment: <200 mg/dL Desirable 200-240 mg/dL Borderline >240 mg/dL High Risk Performed By: #### L 500.4100 ####[facility] [address] [facility] [address] Cholesterol in HDL [Mass/Vol] 49 mg/dL Normal [facility] Comment on above: Result Comment: The drugs N-Acetylcysteine and Metamizole may falselydepress this assay. Reference Range HDL <40 mg/dL Low HDL Cholesterol HDL >or= 60 mg/dL High HDL Cholesterol Performed By: #### L 500.4100 ####[facility] [address] [place], [address] Cholesterol in LDL [Mass/Vol] 87 mg/dL Normal 0-130 [facility] Comment on above: Performed By: #### L 500.4100 ####[facility] [address] [place], [address] Cholesterol in VLDL [Mass/Vol] 12 mg/dL Normal 5-40 [facility] Comment on above: Performed By: #### L 500.4100 ####[facility] [address] [place], [address] Triglyceride [Mass/Vol] 58 mg/dL Normal [facility] Comment on above: Result Comment: The drugs N-Acetylcysteine and Metamizole may falselydepress this assay.Serum Triglycerides Reference Interval Normal <150 mg/dL Borderline high 150 - 199 mg/dL High 200 - 499 mg/dL Very High > or = 500 mg/dL Performed By: #### L 500.4100 ####[facility] [address] [place], [address] Basic Metabolic Profile (BMP )on 09-15-2024 BUN Normal 7-18 [facility] Comment on above: Result Comment: Canc elled via OM: Order cancelled - Patient discharged Performed By: #### L 500.2500, L100.0100 ####[facility] [address] [place], [address] BUN/CRE Normal 10-20 [facility] Comment on above: Result Comment: Canc elled via OM: Order cancelled - Patient discharged Performed By: #### L 500.2500, L100.0100 ####[facility] [address] [place], [address] CA,Total Normal 8.5-10.1 [facility] Comment on above: Result Comment: Canc elled via OM: Order cancelled - Patient discharged Performed By: #### L 500.2500, L100.0100 ####[facility] [address] [place], [address] CL Normal 98-107 [facility] Comment on above: Result Comment: Canc elled via OM: Order cancelled - Patient discharged Performed By: #### L 500.2500, L100.0100 ####[facility] [address] [place], [address] CO2 Normal 21.0-32.0 [facility] Comment on above: Result Comment: Canc elled via OM: Order cancelled - Patient discharged Performed By: #### L 500.2500, L100.0100 ####[facility] [address] [place], [address] CREAT,SERUM Normal 0.70-1.30 [facility] Comment on above: Result Comment: Canc elled via OM: Order cancelled - Patient discharged Performed By: #### L 500.2500, L100.0100 ####[facility] [address] [place], [address] EST GFR Normal >60 [facility] Comment on above: Result Comment: Canc elled via OM: Order cancelled - Patient discharged Performed By: #### L 500.2500, L100.0100 ####[facility] [address] [place], [address] EST GFR - AA Normal >60 [facility] Comment on above: Result Comment: Canc elled via OM: Order cancelled - Patient discharged Performed By: #### L 500.2500, L100.0100 ####[facility] [address] [place], [address] GAP Normal 5-15 [facility] Comment on above: Result Comment: Canc elled via OM: Order cancelled - Patient discharged Performed By: #### L 500.2500, L100.0100 ####[facility] [address] [place], [address] GLU Normal 74-106 [facility] Comment on above: Result Comment: Canc elled via OM: Order cancelled - Patient discharged Performed By: #### L 500.2500, L100.0100 ####[facility] [address] [place], [address] Potassium Normal 3.5-5.1 [facility] Comment on above: Result Comment: Canc elled via OM: Order cancelled - Patient discharged Performed By: #### L 500.2500, L100.0100 ####[facility] [address] [place], [address] Basic Metabolic Profile (BMP) Normal 136-145 [facility] Comment on above: Result Comment: Canc elled via OM: Order cancelled - Patient discharged Performed By: #### L 500.2500, L100.0100 ####[facility] [address] [place], [address] CBC W/Diff, Automatedon 09-01 Absolute Neut Normal 2.0-7.7 [facility] Comment on above: Result Comment: Canc elled via OM: Order cancelled - Patient discharged Performed By: #### L 500.2500, L100.0100 ####[facility] [address] [place], [address] HCT Normal 40-54 [facility] Comment on above: Result Comment: Canc elled via OM: Order cancelled - Patient discharged Performed By: #### L 500.2500, L100.0100 ####[facility] [address] [place], [address] HGB Normal 13.0-16.5 [facility] Comment on above: Result Comment: Canc elled via OM: Order cancelled - Patient discharged Performed By: #### L 500.2500, L100.0100 ####[facility] [address] [place], [address] MCH Normal 27.0-32.0 [facility] Comment on above: Result Comment: Canc elled via OM: Order cancelled - Patient discharged Performed By: #### L 500.2500, L100.0100 ####[facility] [address] [place], [address] MCHC Normal 32-36 [facility] Comment on above: Result Comment: Canc elled via OM: Order cancelled - Patient discharged Performed By: #### L 500.2500, L100.0100 ####[facility] [address] [place], [address] MCV Normal 80-94 [facility] Comment on above: Result Comment: Canc elled via OM: Order cancelled - Patient discharged Performed By: #### L 500.2500, L100.0100 ####[facility] [address] [place], [address] NEUT% Normal 47-70 [facility] Comment on above: Result Comment: Canc elled via OM: Order cancelled - Patient discharged Performed By: #### L 500.2500, L100.0100 ####[facility] [address] [place], [address] PLT Normal 150-450 [facility] Comment on above: Result Comment: Canc elled via OM: Order cancelled - Patient discharged Performed By: #### L 500.2500, L100.0100 ####[facility] [address] [place], [address] RBC Normal 4.6-6.2 [facility] Comment on above: Result Comment: Canc elled via OM: Order cancelled - Patient discharged Performed By: #### L 500.2500, L100.0100 ####[facility] [address] [place], [address] RDW CV Normal 11.6-14.6 [facility] Comment on above: Result Comment: Canc elled via OM: Order cancelled - Patient discharged Performed By: #### L 500.2500, L100.0100 ####[facility] [address] [place], [address] RDW SD Normal 35.1-43.9 [facility] Comment on above: Result Comment: Canc elled via OM: Order cancelled - Patient discharged Performed By: #### L 500.2500, L100.0100 ####[facility] [address] [place], [address] WBC Normal 4.4-11.0 [facility] Comment on above: Result Comment: Canc elled via OM: Order cancelled - Patient discharged Performed By: #### L 500.2500, L100.0100 ####[facility] [address] [place], [address] Basic Metabolic Profile (BMP )on 09-14-2024 BUN/CRE 21.4 RATIO High 10-20 [facility] Comment on above: Performed By: #### L 500.2500, L100.0100 ####[facility] [address] [place], [address] CA,Total 8.7 mg/dL Normal 8.5-10.1 [facility] Comment on above: Performed By: #### L 500.2500, L100.0100 ####[facility] [address] [place], [address] Chloride [Moles/Vol] 104 mmol/L Normal 98-107 [facility] Comment on above: Performed By: #### L 500.2500, L100.0100 ####[facility] [address] [place], [address] CO2 [Moles/Vol] 24.0 mmol/L Normal 21.0-32.0 [facility] Comment on above: Performed By: #### L 500.2500, L100.0100 ####[facility] [address] [place], [address] Creatinine [Mass/Vol] 1.96 mg/dL High 0.70-1.30 [facility] Comment on above: Result Comment: The validity of the calculated GFR GFRAA in patients over70 years has not been determined. Clinical correlation isessential. Performed By: #### L 500.2500, L100.0100 ####[facility] [address] [place], [address] ECRCL 28.02 ml/min Normal [facility] Comment on above: Performed By: #### L 500.2500, L100.0100 ####[facility] [address] [place], [address] EST GFR - AA 43 mL/min Low >60 [facility] Comment on above: Result Comment: Afri can Grenadian GFR Calc Performed By: #### L 500.2500, L100.0100 ####[facility] [address] [place], [address] GAP 7 Normal 5-15 [facility] Comment on above: Performed By: #### L 500.2500, L100.0100 ####[facility] [address] [place], [address] GFR/1.73 sq M.predicted among non-blacks MDRD (S/P/Bld) [Vol rate/Area] 35 mL/min/{1.73_m2} Low >60 [facility] Comment on above: Result Comment: Non- GFR Calc Performed By: #### L 500.2500, L100.0100 ####[facility] [address] [place], [address] Glucose [Mass/Vol] 292 mg/dL High 74-106 [facility] Comment on above: Result Comment: Gluc ose result greater than or equal to 200 mg/dLsuggests DIABETES MELLITUS per A.D.A. criteria. Performed By: #### L 500.2500, L100.0100 ####[facility] [address] [place], [address] Potassium [Moles/Vol] 4.0 mmol/L Normal 3.5-5.1 [facility] Comment on above: Performed By: #### L 500.2500, L100.0100 ####[facility] [address] [place], [address] Sodium [Moles/Vol] 135 mmol/L Low 136-145 [facility] Comment on above: Performed By: #### L 500.2500, L100.0100 ####[facility] [address] [place], [address] Urea nitrogen [Mass/Vol] 42 mg/dL High 7-18 [facility] Comment on above: Performed By: #### L 500.2500, L100.0100 ####[facility] [address] [place], [address] Bedside Glucoseon 09-14-2024 FINGERSTICK GLU 276 mg/dL High 74-106 [facility] Comment on above: Result Comment: Dr James sim FollowedInsulin GivenMANAGEMENT OF PATIENT CARE PER NURSING PROTOCOL Performed By: #### L 501.080 ####[facility] [address] [place], [address] CBC W/Diff, Automatedon 09-01 Absolute Lymph 1.66 X10 3/uL Normal 0.83-4.51 [facility] Comment on above: Performed By: #### L 500.2500, L100.0100 ####[facility] [address] [place], [address] Absolute Neut 7.6 X10 3/uL Normal 2.0-7.7 [facility] Comment on above: Performed By: #### L 500.2500, L100.0100 ####[facility] [address] [place], [address] Basophils/100 WBC (Bld) 0.9 % Normal 0-1 [facility] Comment on above: Performed By: #### L 500.2500, L100.0100 ####[facility] [address] [place], [address] Eosinophils/100 WBC (Bld) 2.2 % Normal 0-5 [facility] [facility] Comment on above: Performed By: #### L 500.2500, L100.0100 ####[facility] [address] [place], [address] Erythrocyte distribution width (RBC) [Ratio] 13.4 % Normal 11.6-14.6 [facility] Comment on above: Performed By: #### L 500.2500, L100.0100 ####[facility] [address] [place], [address] Hematocrit (Bld) [Volume fraction] 32.8 % Low 40-54 [facility] Comment on above: Performed By: #### L 500.2500, L100.0100 ####[facility] [address] [place], [address] Hemoglobin (Bld) [Mass/Vol] 11.1 g/dL Low 13.0-16.5 [facility] Comment on above: Performed By: #### L 500.2500, L100.0100 ####[facility] [address] [place], [address] IG% 0.300 Normal 0.0-0.9 [facility] Comment on above: Result Comment: IG% - Immature Granulocytes (promyelocytes, myelocytes andmetamyelocytes) > 1% indicates that a LEFT SHIFT is Present. Performed By: #### L 500.2500, L100.0100 ####[facility] [address] [place], [address] Lymphocytes/100 WBC (Bld) 15.7 % Low 19-41 [facility] Comment on above: Performed By: #### L 500.2500, L100.0100 ####[facility] [address] [place], [address] MCH (RBC) [Entitic mass] 30.7 pg Normal 27.0-32.0 [facility] Comment on above: Performed By: #### L 500.2500, L100.0100 ####[facility] [address] [place], [address] MCHC (RBC) [Mass/Vol] 33.8 g/dL Normal 32-36 [facility] Comment on above: Performed By: #### L 500.2500, L100.0100 ####[facility] [address] [place], [address] MCV (RBC) [Entitic vol] 90.6 fL Normal 80-94 [facility] Comment on above: Performed By: #### L 500.2500, L100.0100 ####[facility] [address] [place], [address] Monocytes/100 WBC (Bld) 9.0 % Normal 0-10 [facility] Comment on above: Performed By: #### L 500.2500, L100.0100 ####[facility] [address] [place], [address] Neutrophils/100 WBC (Bld) 71.9 % High 47-70 [facility] Comment on above: Performed By: #### L 500.2500, L100.0100 ####[facility] [address] [place], [address] Nucleated RBC (Bld) [#/Vol] 0 10*3/uL Normal 0-5 [facility] Comment on above: Performed By: #### L 500.2500, L100.0100 ####[facility] [address] [place], [address] Platelet mean volume (Bld) [Entitic vol] 11.9 fL Normal 6.2-12.0 [facility] Comment on above: Performed By: #### L 500.2500, L100.0100 ####[facility] [address] [place], [address] Platelets (Bld) [#/Vol] 186 10*3/uL Normal 150-450 [facility] Comment on above: Performed By: #### L 500.2500, L100.0100 ####[facility] [address] [place], [address] RBC (Bld) [#/Vol] 3.62 10*6/uL Low 4.6-6.2 [facility] Comment on above: Performed By: #### L 500.2500, L100.0100 ####[facility] [address] [place], [address] RDW SD 44.5 fl High 35.1-43.9 [facility] Comment on above: Performed By: #### L 500.2500, L100.0100 ####[facility] [address] [place], [address] WBC (Bld) [#/Vol] 10.5 10*3/uL Normal 4.4-11.0 [facility] Comment on above: Performed By: #### L 500.2500, L100.0100 ####[facility] [address] [place], [address] Basic Metabolic Profile (BMP )on 09-13-2024 BUN Normal 7-18 [facility] Comment on above: Result Comment: Canc elled via OM: MD Ordered Performed By: #### L 100.0100, L500.2500 ####[facility] [address] [place], [address] BUN/CRE Normal 10-20 [facility] Comment on above: Result Comment: Canc elled via OM: MD Ordered Performed By: #### L 100.0100, L500.2500 ####[facility] [address] [place], [address] CA,Total Normal 8.5-10.1 [facility] Comment on above: Result Comment: Canc elled via OM: MD Ordered Performed By: #### L 100.0100, L500.2500 ####[facility] [address] [place], [address] CL Normal 98-107 [facility] Comment on above: Result Comment: Canc elled via OM: MD Ordered Performed By: #### L 100.0100, L500.2500 ####[facility] [address] [place], [address] CO2 Normal 21.0-32.0 [facility] Comment on above: Result Comment: Canc elled via OM: MD Ordered Performed By: #### L 100.0100, L500.2500 ####[facility] [address] [place], [address] CREAT,SERUM Normal 0.70-1.30 [facility] Comment on above: Result Comment: Canc elled via OM: MD Ordered Performed By: #### L 100.0100, L500.2500 ####[facility] [address] [place], [address] EST GFR Normal >60 [facility] Comment on above: Result Comment: Canc elled via OM: MD Ordered Performed By: #### L 100.0100, L500.2500 ####[facility] [address] [place], [address] EST GFR - AA Normal >60 [facility] Comment on above: Result Comment: Canc elled via OM: MD Ordered Performed By: #### L 100.0100, L500.2500 ####[facility] [address] [place], [address] GAP Normal 5-15 [facility] Comment on above: Result Comment: Canc elled via OM: MD Ordered Performed By: #### L 100.0100, L500.2500 ####[facility] [address] [place], [address] GLU Normal 74-106 [facility] Comment on above: Result Comment: Canc elled via OM: MD Ordered Performed By: #### L 100.0100, L500.2500 ####[facility] [address] [place], [address] Potassium Normal 3.5-5.1 [facility] Comment on above: Result Comment: Ray toussaint via OM: Ordered Performed By: #### L 100.0100, L500.2500 ####[facility] [address] [place], [address] Basic Metabolic Profile (BMP) Normal 136-145 [facility] Comment on above: Result Comment: Ray toussaint via OM: Ordered Performed By: #### L 100.0100, L500.2500 ####[facility] [address] [place], [address] BUN/CRE 17.4 RATIO Normal 10-20 [facility] Comment on above: Performed By: #### L 500.2500, L501.2300, L501.5200, L100.0100 ####[facility] [address] [place], [address] CA,Total 8.7 mg/dL Normal 8.5-10.1 [facility] Comment on above: Performed By: #### L 500.2500, L501.2300, L501.5200, L100.0100 ####[facility] [address] [place], [address] Chloride [Moles/Vol] 105 mmol/L Normal 98-107 [facility] Comment on above: Performed By: #### L 500.2500, L501.2300, L501.5200, L100.0100 ####[facility] [address] [place], [address] CO2 [Moles/Vol] 28.0 mmol/L Normal 21.0-32.0 [facility] Comment on above: Performed By: #### L 500.2500, L501.2300, L501.5200, L100.0100 ####[facility] [address] [place], [address] Creatinine [Mass/Vol] 1.78 mg/dL High 0.70-1.30 [facility] Comment on above: Result Comment: The validity of the calculated GFR GFRAA in patients over70 years has not been determined. Clinical correlation isessential. Performed By: #### L 500.2500, L501.2300, L501.5200, L100.0100 ####[facility] [address] [place], [address] ECRCL 30.95 ml/min Normal [facility] Comment on above: Performed By: #### L 500.2500, L501.2300, L501.5200, L100.0100 ####[facility] [address] [place], [address] EST GFR - AA 47 mL/min Low >60 [facility] Comment on above: Result Comment: Afri can Grenadian GFR Calc Performed By: #### L 500.2500, L501.2300, L501.5200, L100.0100 ####[facility] [address] [place], [address] GAP 7 Normal 5-15 [facility] Comment on above: Performed By: #### L 500.2500, L501.2300, L501.5200, L100.0100 ####[facility] [address] [place], [address] GFR/1.73 sq M.predicted among non-blacks MDRD (S/P/Bld) [Vol rate/Area] 39 mL/min/{1.73_m2} Low >60 [facility] Comment on above: Result Comment: Non- GFR Calc Performed By: #### L 500.2500, L501.2300, L501.5200, L100.0100 ####[facility] [address] [place], [address] Glucose [Mass/Vol] 138 mg/dL High 74-106 [facility] Comment on above: Result Comment: Fast ing Glucose result greater than or equal to 126 mg/dLsuggests DIABETES MELLITUS per A.D.A. criteria. Performed By: #### L 500.2500, L501.2300, L501.5200, L100.0100 ####[facility] [address] [place], [address] Potassium [Moles/Vol] 3.4 mmol/L Low 3.5-5.1 [facility] Comment on above: Performed By: #### L 500.2500, L501.2300, L501.5200, L100.0100 ####[facility] [address] [place], [address] Sodium [Moles/Vol] 140 mmol/L Normal 136-145 [facility] Comment on above: Performed By: #### L 500.2500, L501.2300, L501.5200, L100.0100 ####[facility] [address] [place], [address] Urea nitrogen [Mass/Vol] 31 mg/dL High 7-18 [facility] Comment on above: Performed By: #### L 500.2500, L501.2300, L501.5200, L100.0100 ####[facility] [address] [place], [address] Bedside Glucoseon 09-13-2024 FINGERSTICK GLU 281 mg/dL High 74-106 [facility] Comment on above: Result Comment: ADITI GEMENT OF PATIENT CARE PER NURSING PROTOCOL Performed By: #### L 501.080 ####[facility] [address] [place], [address] FINGERSTICK GLU 179 mg/dL High 74-106 [facility] Comment on above: Result Comment: ADITI GEMENT OF PATIENT CARE PER NURSING PROTOCOL Performed By: #### L 501.080 ####[facility] [address] [place], [address] FINGERSTICK GLU 234 mg/dL High 74-106 [facility] Comment on above: Result Comment: ADITI GEMENT OF PATIENT CARE PER NURSING PROTOCOL Performed By: #### L 501.080 ####[facility] [address] [place], [address] FINGERSTICK GLU 238 mg/dL High 74-106 [facility] Comment on above: Result Comment: ADITI GEMENT OF PATIENT CARE PER NURSING PROTOCOL Performed By: #### L 501.080 ####[facility] [address] [place], [address] FINGERSTICK GLU 126 mg/dL High 74-106 [facility] Comment on above: Result Comment: ADITI GEMENT OF PATIENT CARE PER NURSING PROTOCOL Performed By: #### L 501.080 ####[facility] [address] [place], [address] CBC W/Diff, Automatedon 11-1 Absolute Neut Normal 2.0-7.7 [facility] Comment on above: Result Comment: Canc elled via OM: MD Ordered Performed By: #### L 100.0100, L500.2500 ####[facility] [address] [place], [address] HCT Normal 40-54 [facility] Comment on above: Result Comment: Canc elled via OM: MD Ordered Performed By: #### L 100.0100, L500.2500 ####[facility] [address] [place], [address] HGB Normal 13.0-16.5 [facility] Comment on above: Result Comment: Canc elled via OM: MD Ordered Performed By: #### L 100.0100, L500.2500 ####[facility] [address] [place], [address] MCH Normal 27.0-32.0 [facility] Comment on above: Result Comment: Canc elled via OM: MD Ordered Performed By: #### L 100.0100, L500.2500 ####[facility] [address] [place], [address] MCHC Normal 32-36 [facility] Comment on above: Result Comment: Canc elled via OM: MD Ordered Performed By: #### L 100.0100, L500.2500 ####[facility] [address] [place], [address] MCV Normal 80-94 [facility] Comment on above: Result Comment: Canc elled via OM: MD Ordered Performed By: #### L 100.0100, L500.2500 ####[facility] [address] [place], [address] NEUT% Normal 47-70 [facility] Comment on above: Result Comment: Canc elled via OM: MD Ordered Performed By: #### L 100.0100, L500.2500 ####[facility] [address] [place], [address] PLT Normal 150-450 [facility] Comment on above: Result Comment: Canc elled via OM: MD Ordered Performed By: #### L 100.0100, L500.2500 ####[facility] [address] [place], [address] RBC Normal 4.6-6.2 [facility] Comment on above: Result Comment: Canc elled via OM: MD Ordered Performed By: #### L 100.0100, L500.2500 ####[facility] [address] [place], [address] RDW CV Normal 11.6-14.6 [facility] Comment on above: Result Comment: Canc elled via OM: MD Ordered Performed By: #### L 100.0100, L500.2500 ####[facility] [address] [place], [address] RDW SD Normal 35.1-43.9 [facility] Comment on above: Result Comment: Ray toussaint via OM: MD Ordered Performed By: #### L 100.0100, L500.2500 ####[facility] [address] [place], [address] WBC Normal 4.4-11.0 [facility] Comment on above: Result Comment: Ray toussaint via OM: MD Ordered Performed By: #### L 100.0100, L500.2500 ####[facility] [address] [place], [address] Absolute Lymph 2.32 X10 3/uL Normal 0.83-4.51 [facility] Comment on above: Performed By: #### L 500.2500, L501.2300, L501.5200, L100.0100 ####[facility] [address] [place], [address] Absolute Neut 7.4 X10 3/uL Normal 2.0-7.7 [facility] Comment on above: Performed By: #### L 500.2500, L501.2300, L501.5200, L100.0100 ####[facility] [address] [place], [address] Basophils/100 WBC (Bld) 0.8 % Normal 0-1 [facility] Comment on above: Performed By: #### L 500.2500, L501.2300, L501.5200, L100.0100 ####[facility] [address] [place], [address] Eosinophils/100 WBC (Bld) 1.3 % Normal 0-5 [facility] Comment on above: Performed By: #### L 500.2500, L501.2300, L501.5200, L100.0100 ####[facility] [address] [place], [address] Erythrocyte distribution width (RBC) [Ratio] 13.8 % Normal 11.6-14.6 [facility] Comment on above: Performed By: #### L 500.2500, L501.2300, L501.5200, L100.0100 ####[facility] [address] [place], [address] Hematocrit (Bld) [Volume fraction] 30.7 % Low 40-54 [facility] Comment on above: Performed By: #### L 500.2500, L501.2300, L501.5200, L100.0100 ####[facility] [address] [place], [address] Hemoglobin (Bld) [Mass/Vol] 10.4 g/dL Low 13.0-16.5 [facility] Comment on above: Performed By: #### L 500.2500, L501.2300, L501.5200, L100.0100 ####[facility] [address] [place], [address] IG% 0.400 Normal 0.0-0.9 [facility] Comment on above: Result Comment: IG% - Immature Granulocytes (promyelocytes, myelocytes andmetamyelocytes) > 1% indicates that a LEFT SHIFT is Present. Performed By: #### L 500.2500, L501.2300, L501.5200, L100.0100 ####[facility] [address] [place], [address] Lymphocytes/100 WBC (Bld) 21.2 % Normal 19-41 [facility] Comment on above: Performed By: #### L 500.2500, L501.2300, L501.5200, L100.0100 ####[facility] [address] [place], [address] MCH (RBC) [Entitic mass] 30.6 pg Normal 27.0-32.0 [facility] Comment on above: Performed By: #### L 500.2500, L501.2300, L501.5200, L100.0100 ####[facility] [address] [place], [address] MCHC (RBC) [Mass/Vol] 33.9 g/dL Normal 32-36 [facility] Comment on above: Performed By: #### L 500.2500, L501.2300, L501.5200, L100.0100 ####[facility] [address] [place], [address] MCV (RBC) [Entitic vol] 90.3 fL Normal 80-94 [facility] Comment on above: Performed By: #### L 500.2500, L501.2300, L501.5200, L100.0100 ####[facility] [address] [place], [address] Monocytes/100 WBC (Bld) 9.3 % Normal 0-10 [facility] Comment on above: Performed By: #### L 500.2500, L501.2300, L501.5200, L100.0100 ####[facility] [address] [place], [address] Neutrophils/100 WBC (Bld) 67.0 % Normal 47-70 [facility] Comment on above: Performed By: #### L 500.2500, L501.2300, L501.5200, L100.0100 ####[facility] [address] [place], [address] Nucleated RBC (Bld) [#/Vol] 0 10*3/uL Normal 0-5 [facility] Comment on above: Performed By: #### L 500.2500, L501.2300, L501.5200, L100.0100 ####[facility] [address] [place], [address] Platelet mean volume (Bld) [Entitic vol] 11.4 fL Normal 6.2-12.0 [facility] Comment on above: Performed By: #### L 500.2500, L501.2300, L501.5200, L100.0100 ####[facility] [address] [place], [address] Platelets (Bld) [#/Vol] 168 10*3/uL Normal 150-450 [facility] Comment on above: Performed By: #### L 500.2500, L501.2300, L501.5200, L100.0100 ####[facility] [address] [place], [address] RBC (Bld) [#/Vol] 3.40 10*6/uL Low 4.6-6.2 [facility] Comment on above: Performed By: #### L 500.2500, L501.2300, L501.5200, L100.0100 ####[facility] [address] [place], [address] RDW SD 45.1 fl High 35.1-43.9 [facility] Comment on above: Performed By: #### L 500.2500, L501.2300, L501.5200, L100.0100 ####[facility] [address] [place], [address] WBC (Bld) [#/Vol] 11.0 10*3/uL Normal 4.4-11.0 [facility] Comment on above: Performed By: #### L 500.2500, L501.2300, L501.5200, L100.0100 ####[facility] [address] [place], [address] Magnesiumon 09-13-2024 Magnesium [Mass/Vol] 2.0 mg/dL Normal 1.6-2.6 [facility] Comment on above: Performed By: #### L 500.2500, L501.2300, L501.5200, L100.0100 ####[facility] [address] [place], [address] Phosphoruson 09-13-2024 Phosphate [Mass/Vol] 3.2 mg/dL Normal 2.5-4.9 [facility] Comment on above: Performed By: #### L 500.2500, L501.2300, L501.5200, L100.0100 ####[facility] [address] [place], [address] 12 Lead EKGon 09-12-2024 12 Lead EKG Normal [facility] BNP,B-Type NATRIURETIC PEPTI Silviano 09-12-2024 Natriuretic peptide B (Bld) [Mass/Vol] 903.4 pg/mL High 0-100 [facility] Comment on above: Performed By: #### L 100.0100, L501.5425, L300.3900, L501.5200, L300.4310, L500.2500, L503.6620 ####[facility] [address] [place], [address] Basic Metabolic Profile (BMP )on 09-12-2024 BUN/CRE 14.5 RATIO Normal 10-20 [facility] Comment on above: Order Comment: 1Y Performed By: #### L 100.0100, L501.5425, L300.3900, L501.5200, L300.4310, L500.2500, L503.6620 ####[facility] [address] [place], [address] CA,Total 9.1 mg/dL Normal 8.5-10.1 [facility] Comment on above: Order Comment: 1Y Performed By: #### L 100.0100, L501.5425, L300.3900, L501.5200, L300.4310, L500.2500, L503.6620 ####[facility] [address] [place], [address] Chloride [Moles/Vol] 105 mmol/L Normal 98-107 [facility] Comment on above: Order Comment: 1Y Performed By: #### L 100.0100, L501.5425, L300.3900, L501.5200, L300.4310, L500.2500, L503.6620 ####[facility] [address] [place], [address] CO2 [Moles/Vol] 22.0 mmol/L Normal 21.0-32.0 [facility] Comment on above: Order Comment: 1Y Performed By: #### L 100.0100, L501.5425, L300.3900, L501.5200, L300.4310, L500.2500, L503.6620 ####[facility] [address] [place], [address] Creatinine [Mass/Vol] 1.86 mg/dL High 0.70-1.30 [facility] Comment on above: Order Comment: 1Y Result Comment: The validity of the calculated GFR GFRAA in patients over70 years has not been determined. Clinical correlation isessential. Performed By: #### L 100.0100, L501.5425, L300.3900, L501.5200, L300.4310, L500.2500, L503.6620 ####[facility] [address] [place], [address] ECRCL 29.61 ml/min Normal [facility] Comment on above: Order Comment: 1Y Performed By: #### L 100.0100, L501.5425, L300.3900, L501.5200, L300.4310, L500.2500, L503.6620 ####[facility] [address] [place], [address] EST GFR - AA 45 mL/min Low >60 [facility] Comment on above: Order Comment: 1Y Result Comment: Afri can Grenadian GFR Calc Performed By: #### L 100.0100, L501.5425, L300.3900, L501.5200, L300.4310, L500.2500, L503.6620 ####[facility] [address] [place], [address] GAP 11 Normal 5-15 [facility] Comment on above: Order Comment: 1Y Performed By: #### L 100.0100, L501.5425, L300.3900, L501.5200, L300.4310, L500.2500, L503.6620 ####[facility] [address] [place], [address] GFR/1.73 sq M.predicted among non-blacks MDRD (S/P/Bld) [Vol rate/Area] 37 mL/min/{1.73_m2} Low >60 [facility] Comment on above: Order Comment: 1Y Result Comment: Non- GFR Calc Performed By: #### L 100.0100, L501.5425, L300.3900, L501.5200, L300.4310, L500.2500, L503.6620 ####[facility] [address] [place], [address] Glucose [Mass/Vol] 369 mg/dL High 74-106 [facility] Comment on above: Order Comment: 1Y Result Comment: Gluc ose result greater than or equal to 200 mg/dLsuggests DIABETES MELLITUS per A.D.A. criteria. Performed By: #### L 100.0100, L501.5425, L300.3900, L501.5200, L300.4310, L500.2500, L503.6620 ####[facility] [address] [place], [address] Potassium [Moles/Vol] 4.1 mmol/L Normal 3.5-5.1 [facility] Comment on above: Order Comment: 1Y Performed By: #### L 100.0100, L501.5425, L300.3900, L501.5200, L300.4310, L500.2500, L503.6620 ####[facility] [address] [place], [address] Sodium [Moles/Vol] 138 mmol/L Normal 136-145 [facility] Comment on above: Order Comment: 1Y Performed By: #### L 100.0100, L501.5425, L300.3900, L501.5200, L300.4310, L500.2500, L503.6620 ####[facility] [address] [place], [address] Urea nitrogen [Mass/Vol] 27 mg/dL High 7-18 [facility] Comment on above: Order Comment: 1Y Performed By: #### L 100.0100, L501.5425, L300.3900, L501.5200, L300.4310, L500.2500, L503.6620 ####[facility] [address] [place], [address] Bedside Glucoseon 09-12-2024 FINGERSTICK GLU 202 mg/dL High 74-106 [facility] Comment on above: Result Comment: ADITI GEMENT OF PATIENT CARE PER NURSING PROTOCOL Performed By: #### L 501.080 ####[facility] [address] [place], [address] FINGERSTICK GLU 122 mg/dL High 74-106 [facility] Comment on above: Result Comment: ADITI GEMENT OF PATIENT CARE PER NURSING PROTOCOL Performed By: #### L 501.080 ####[facility] [address] [place], [address] FINGERSTICK GLU 398 mg/dL High 74-106 [facility] Comment on above: Result Comment: ADITI GEMENT OF PATIENT CARE PER NURSING PROTOCOL Performed By: #### L 501.080 ####[facility] [address] [place], [address] FINGERSTICK GLU 377 mg/dL High 74-106 [facility] Comment on above: Result Comment: ADITI ESCOBEDO OF PATIENT CARE PER NURSING PROTOCOL Performed By: #### L 501.080 ####[facility] [address] [place], [address] CBC W/Diff, Automatedon 09-01 Absolute Lymph 2.62 X10 3/uL Normal 0.83-4.51 [facility] Comment on above: Performed By: #### L 100.0100, L501.5425, L300.3900, L501.5200, L300.4310, L500.2500, L503.6620 ####[facility] [address] [place], [address] Absolute Neut 19.7 X10 3/uL High 2.0-7.7 [facility] Comment on above: Performed By: #### L 100.0100, L501.5425, L300.3900, L501.5200, L300.4310, L500.2500, L503.6620 ####[facility] [address] [place], [address] Basophils/100 WBC (Bld) 0.7 % Normal 0-1 [facility] Comment on above: Performed By: #### L 100.0100, L501.5425, L300.3900, L501.5200, L300.4310, L500.2500, L503.6620 ####[facility] [address] [place], [address] Eosinophils/100 WBC (Bld) 0.8 % Normal 0-5 [facility] Comment on above: Performed By: #### L 100.0100, L501.5425, L300.3900, L501.5200, L300.4310, L500.2500, L503.6620 ####[facility] [address] [place], [address] Erythrocyte distribution width (RBC) [Ratio] 13.8 % Normal 11.6-14.6 [facility] Comment on above: Performed By: #### L 100.0100, L501.5425, L300.3900, L501.5200, L300.4310, L500.2500, L503.6620 ####[facility] [address] [place], [address] Hematocrit (Bld) [Volume fraction] 38.9 % Low 40-54 [facility] Comment on above: Performed By: #### L 100.0100, L501.5425, L300.3900, L501.5200, L300.4310, L500.2500, L503.6620 ####[facility] [address] [place], [address] Hemoglobin (Bld) [Mass/Vol] 13.1 g/dL Normal 13.0-16.5 [facility] Comment on above: Performed By: #### L 100.0100, L501.5425, L300.3900, L501.5200, L300.4310, L500.2500, L503.6620 ####[facility] [address] [place], [address] IG% 0.800 Normal 0.0-0.9 [facility] Comment on above: Result Comment: IG% - Immature Granulocytes (promyelocytes, myelocytes andmetamyelocytes) > 1% indicates that a LEFT SHIFT is Present. Performed By: #### L 100.0100, L501.5425, L300.3900, L501.5200, L300.4310, L500.2500, L503.6620 ####[facility] [address] [place], [address] Lymphocytes/100 WBC (Bld) 10.7 % Low 19-41 [facility] Comment on above: Performed By: #### L 100.0100, L501.5425, L300.3900, L501.5200, L300.4310, L500.2500, L503.6620 ####[facility] [address] [place], [address] MCH (RBC) [Entitic mass] 30.6 pg Normal 27.0-32.0 [facility] Comment on above: Performed By: #### L 100.0100, L501.5425, L300.3900, L501.5200, L300.4310, L500.2500, L503.6620 ####[facility] [address] [place], [address] MCHC (RBC) [Mass/Vol] 33.7 g/dL Normal 32-36 [facility] Comment on above: Performed By: #### L 100.0100, L501.5425, L300.3900, L501.5200, L300.4310, L500.2500, L503.6620 ####[facility] [address] [place], [address] MCV (RBC) [Entitic vol] 90.9 fL Normal 80-94 [facility] Comment on above: Performed By: #### L 100.0100, L501.5425, L300.3900, L501.5200, L300.4310, L500.2500, L503.6620 ####[facility] [address] [place], [address] Monocytes/100 WBC (Bld) 6.2 % Normal 0-10 [facility] Comment on above: Performed By: #### L 100.0100, L501.5425, L300.3900, L501.5200, L300.4310, L500.2500, L503.6620 ####[facility] [address] [place], [address] Neutrophils/100 WBC (Bld) 80.8 % High 47-70 [facility] Comment on above: Performed By: #### L 100.0100, L501.5425, L300.3900, L501.5200, L300.4310, L500.2500, L503.6620 ####[facility] [address] [place], [address] Nucleated RBC (Bld) [#/Vol] 0 10*3/uL Normal 0-5 [facility] Comment on above: Performed By: #### L 100.0100, L501.5425, L300.3900, L501.5200, L300.4310, L500.2500, L503.6620 ####[facility] [address] [place], [address] Platelet mean volume (Bld) [Entitic vol] 11.4 fL Normal 6.2-12.0 [facility] Comment on above: Performed By: #### L 100.0100, L501.5425, L300.3900, L501.5200, L300.4310, L500.2500, L503.6620 ####[facility] [address] [place], [address] Platelets (Bld) [#/Vol] 227 10*3/uL Normal 150-450 [facility] Comment on above: Performed By: #### L 100.0100, L501.5425, L300.3900, L501.5200, L300.4310, L500.2500, L503.6620 ####[facility] [address] [place], [address] RBC (Bld) [#/Vol] 4.28 10*6/uL Low 4.6-6.2 [facility] Comment on above: Performed By: #### L 100.0100, L501.5425, L300.3900, L501.5200, L300.4310, L500.2500, L503.6620 ####[facility] [address] [place], [address] RDW SD 46.5 fl High 35.1-43.9 [facility] Comment on above: Performed By: #### L 100.0100, L501.5425, L300.3900, L501.5200, L300.4310, L500.2500, L503.6620 ####[facility] [address] [place], [address] WBC (Bld) [#/Vol] 24.4 10*3/uL High 4.4-11.0 [facility] Comment on above: Performed By: #### L 100.0100, L501.5425, L300.3900, L501.5200, L300.4310, L500.2500, L503.6620 ####[facility] [address] [place], [address] Chest 1 View (Portable)on Chest 1 View (Portable) Normal [facility] Echo Completeon 09-12-2024 Echo Complete Normal [facility] Emergency Department Summary on 09-12-2024 Emergency Department Summary Normal [facility] Kidney and Bladderon 024 Kidney and Bladder Normal [facility] L501.4020on 09-12-2024 TROPONIN-I HS 346 pg/mL Invalid Interpretation Code 3.0-78.0 [facility] Comment on above: Order Comment: 'TROP ' Serial specimen #1, #2 or #3: 3 Result Comment: Crit ical Result(s) Called at: 09:19:13 09/12/2024 by:Eve Mendoza to Tania Cruz. Results read back by same. Please Note: New Test Units and Gender Specific Reference Ranges. For more information see Policy Stat Procedure [place] High Sensitivity Troponin (TNIH) and attachments. Performed By: #### L 501.4020 ####[facility] [address] [place], [address] TROPONIN-I HS 205 pg/mL Invalid Interpretation Code 3.0-78.0 [facility] Comment on above: Result Comment: Crit ical Result(s) Called at: 06:27:52 09/12/2024 by:Eve Valiente. Results read back by same. Please Note: New Test Units and Gender Specific Reference Ranges. For more information see Policy Stat Procedure [place] High Sensitivity Troponin (TNIH) and attachments. Performed By: #### L 501.4020 ####[facility] [address] [place], [place], [phone] L501.5425on 09-12-2024 TROPONIN-I HS 57 pg/mL Normal 3.0-78.0 [facility] Comment on above: Order Comment: 1Y Result Comment: Helder francisco Note: New Test Units and Gender Specific Reference Ranges. For more information see Policy Stat Procedure [place] High Sensitivity Troponin (TNIH) and attachments. Performed By: #### L 100.0100, L501.5425, L300.3900, L501.5200, L300.4310, L500.2500, L503.6620 ####[facility] [address] [place], [place], [address] Magnesiumon 09-12-2024 Magnesium [Mass/Vol] 2.1 mg/dL Normal 1.6-2.6 [facility] Comment on above: Order Comment: 1Y Performed By: #### L 100.0100, L501.5425, L300.3900, L501.5200, L300.4310, L500.2500, L503.6620 ####[facility] [address] [place], [place], [address] Partial Thromboplast Timeon 09-12-2024 aPTT Coag (Bld) [Time] 35.1 s Normal 24.1-36.2 [facility] Comment on above: Performed By: #### L 100.0100, L501.5425, L300.3900, L501.5200, L300.4310, L500.2500, L503.6620 ####[facility] [address] [place], [address] Prothrombin Time w/INRon INR Coag (PPP) [Relative time] 1.1 {INR} Normal [facility] Comment on above: Performed By: #### L 100.0100, L501.5425, L300.3900, L501.5200, L300.4310, L500.2500, L503.6620 ####[facility] [address] [place], [address] PT Coag (PPP) [Time] 14.6 s Normal 11.7-14.9 [facility] Comment on above: Performed By: #### L 100.0100, L501.5425, L300.3900, L501.5200, L300.4310, L500.2500, L503.6620 ####[facility] [address] [place], [address] Renal Artery Duplex Ultrasou ndon 09-12-2024 Renal Artery Duplex Ultrasound Normal [facility] CBC W Auto Differential pane l (Bld)on 07-07-2024 Basophils (Bld) [#/Vol] 0.09 x10*3/uL Normal 0.00-0.10 [facility] Comment on above: Performed By: #### 5 7021-8 #### MAGGI PARNELL ([id number]) [facility] ([facility]) [address] [place] [address] Basophils/100 WBC (Bld) 1.1 % Normal 0.0-2.0 [facility] Comment on above: Performed By: #### 5 7021-8 #### MAGGI PARNELL ([id number]) [facility] ([facility]) [address] [place] [address] Eosinophils (Bld) [#/Vol] 0.43 x10*3/uL High 0.00-0. 40 [facility] Comment on above: Performed By: #### 5 7021-8 #### MAGGI PARNELL ([id number]) [facility] ([facility]) [address] [place] [address] Eosinophils/100 WBC (Bld) 5.4 % Normal 0.0-6.0 [facility] Comment on above: Performed By: #### 5 7021-8 #### MAGGI PARNELL ([id number]) [facility] ([facility]) [address] [place] [address] Erythrocyte distribution width (RBC) [Ratio] 13.5 % Normal 11.5-14.5 [facility] Comment on above: Performed By: #### 5 7021-8 #### MAGGI PARNELL ([id number]) [facility] ([facility]) [address] [place] [address] Hematocrit (Bld) [Volume fraction] 43.5 % Normal 41.0-52.0 [facility] Comment on above: Performed By: #### 5 7021-8 #### MAGGI PARNELL ([id number]) [facility] ([facility]) [address] [place] [address] Hemoglobin (Bld) [Mass/Vol] 13.6 g/dL Normal 13.5-17.5 [facility] Comment on above: Performed By: #### 5 7021-8 #### MAGGI PARNELL ([id number]) [facility] ([facility]) [address] [place] [address] Immature granulocytes (Bld) [#/Vol] 0.02 x10*3/uL Normal 0.00-0.50 [facility] Comment on above: Performed By: #### 5 7021-8 #### MAGGI PARNELL ([id number]) [facility] ([facility]) [address] [place] [address] Immature granulocytes/100 WBC (Bld) 0.3 % Normal 0.0-0.9 [facility] Comment on above: Result Comment: Arielle ture Granulocyte Count (IG) includes promyelocytes, myelocytes and metamyelocytes but does not include bands. Percent differential counts (%) should be interpreted in the context of the absolute cell counts (cells/UL). Performed By: #### 5 7021-8 #### MAGGI PARNELL ([id number]) [facility] ([facility]) [address] [place] [address] Lymphocytes (Bld) [#/Vol] 2.08 x10*3/uL Normal 0.80-3. 00 [facility] Comment on above: Performed By: #### 5 7021-8 #### MAGGI PARNELL ([id number]) [facility] ([facility]) [address] [place] [address] Lymphocytes/100 WBC (Bld) 26.3 % Normal 13.0-44.0 [facility] Comment on above: Performed By: #### 5 7021-8 #### MGAGI PARNELL ([id number]) [facility] ([facility]) [address] [place] [address] MCH (RBC) [Entitic mass] 30.4 pg Normal 26.0-34.0 [facility] Comment on above: Performed By: #### 5 7021-8 #### MAGGI PARNELL ([id number]) [facility] ([facility]) [address] [place] [address] MCHC (RBC) [Mass/Vol] 31.3 g/dL Low 32.0-36.0 [facility] Comment on above: Performed By: #### 5 7021-8 #### MAGGI PARNELL ([id number]) [facility] ([facility]) [address] [place] [address] MCV (RBC) [Entitic vol] 97 fL Normal 80-100 [facility] Comment on above: Performed By: #### 5 7021-8 #### MAGGI PARNELL ([id number]) [facility] ([facility]) [address] [place] [address] Monocytes (Bld) [#/Vol] 0.60 x10*3/uL Normal 0.05-0.80 [facility] Comment on above: Performed By: #### 5 7021-8 #### MAGGI PARNELL ([id number]) [facility] ([facility]) [facility] [place] [address] Monocytes/100 WBC (Bld) 7.6 % Normal 2.0-10.0 [facility] Comment on above: Performed By: #### 5 7021-8 #### MAGGI PARNELL ([id number]) [facility] ([facility]) [address] [place] [address]40 Neutrophils (Bld) [#/Vol] 4.68 x10*3/uL Normal 1.60-5. 50 [facility] Comment on above: Result Comment: Perc ent differential counts (%) should be interpreted in the context of the absolute cell counts (cells/uL). Performed By: #### 5 7021-8 #### MAGGI PARNELL ([id number]) [facility] ([facility]) [address] [place] [address]07 Neutrophils/100 WBC (Bld) 59.3 % Normal 40.0-80.0 [facility] Comment on above: Performed By: #### 5 7021-8 #### MAGGI PARNELL ([id number]) [facility] ([facility]) [address] [place] [address] 49570 Nucleated RBC/100 WBC (Bld) [Ratio] 0.0 /100 WBCs Normal 0.0-0.0 [facility] Comment on above: Performed By: #### 5 7021-8 #### MAGGI PARNELL ([id number]) [facility] ([facility]) [address] [place] [address]772 Platelets (Bld) [#/Vol] 260 x10*3/uL Normal 150-450 [facility] Comment on above: Performed By: #### 5 7021-8 #### MAGGI PARNELL ([id number]) [facility] ([facility]) [address] [place] [address] 74248 RBC (Bld) [#/Vol] 4.48 x10*6/uL Low 4.50-5.90 [facility] Comment on above: Performed By: #### 5 7021-8 #### MAGGI PARNELL ([id number]) [facility] ([facility]) [address] [place] [address] WBC (Bld) [#/Vol] 7.9 x10*3/uL Normal 4.4-11.3 [facility] Comment on above: Performed By: #### 5 7021-8 #### MAGGI PARNELL ([id number]) [facility] ([facility]) [address] [place] [address] Comprehensive metabolic 2000 panelon 07-07-2024 Albumin BCP dye [Mass/Vol] 4.3 g/dL Normal 3.4-5.0 [facility] Comment on above: Performed By: #### 2 4323-8 #### MAGGI PARNELL ([id number]) [facility] ([facility]) [address] [place] [address] ALP [Catalytic activity/Vol] 69 U/L Normal 33-136 [facility] Comment on above: Performed By: #### 2 4323-8 #### MAGGI PARNELL ([id number]) [facility] ([facility]) [address] [place] [address] ALT With P-5'-P [Catalytic activity/Vol] 8 U/L Low 10-52 [facility] Comment on above: Result Comment: Twila ents treated with Sulfasalazine may generate falsely decreased results for ALT. Performed By: #### 2 4323-8 #### MAGGI PARNELL ([id number]) [facility] ([facility]) [address] [place] [address] Anion gap [Moles/Vol] 14 mmol/L Normal 10-20 [facility] Comment on above: Performed By: #### 2 4323-8 #### MAGGI PARNELL ([id number]) [facility] ([facility]) [address] [place] [address] AST With P-5'-P [Catalytic activity/Vol] 13 U/L Normal 9-39 [facility] Comment on above: Performed By: #### 2 4323-8 #### MAGGI PARNELL ([id number]) [facility] ([facility]) [address] [place] [address] Bilirubin [Mass/Vol] 0.5 mg/dL Normal 0.0-1.2 [facility] Comment on above: Performed By: #### 2 4323-8 #### MAGGI PARNELL ([id number]) [facility] ([facility]) [address] [place] [address] Calcium [Mass/Vol] 9.5 mg/dL Normal 8.6-10.3 [facility] Comment on above: Performed By: #### 2 4323-8 #### MAGGI PARNELL ([id number]) [facility] ([facility]) [address] [place] [address] 19883 Chloride [Moles/Vol] 106 mmol/L Normal 98-107 [facility] Comment on above: Performed By: #### 2 4323-8 #### MAGGI PRANELL ([id number]) [facility] ([facility]) [address] [place] [address] 83554 CO2 [Moles/Vol] 27 mmol/L Normal 21-32 [facility] Comment on above: Performed By: #### 2 4323-8 #### MAGGI PARNELL ([id number]) [facility] ([facility]) [address] [place] [address] 84011 Creatinine [Mass/Vol] 1.61 mg/dL High 0.50-1.30 [facility] Comment on above: Performed By: #### 2 4323-8 #### MAGGI PARNELL ([id number]) [facility] ([facility]) [address] [place] [address] 23261 Glomerular filtration rate/1.73 sq M.predicted 43 mL/min/1.73m*2 Low >60 [facility] Comment on above: Result Comment: Calc ulations of estimated GFR are performed using the 2020 CKD-EPI Study Refit equation without the race variable for the IDMS-Traceable creatinine methods. https://jasn.asnjournals.org/content//ASN.20 60332872 Performed By: #### 2 4323-8 #### MAGGI PARNELL ([id number]) [facility] ([facility]) [address] [place] [address] Glucose [Mass/Vol] 119 mg/dL High 74-99 [facility] Comment on above: Performed By: #### 2 4323-8 #### MAGGI PARNELL ([id number]) [facility] ([facility]) [address] [place] [address] 11850 Potassium [Moles/Vol] 4.0 mmol/L Normal 3.5-5.3 [facility] Comment on above: Performed By: #### 2 4323-8 #### MAGGI PARNELL ([id number]) [facility] ([facility]) [address] [place] [address] 47603 Protein [Mass/Vol] 6.8 g/dL Normal 6.4-8.2 [facility] Comment on above: Performed By: #### 2 432-8 #### MAGGI PARNELL ([id number]) [facility] ([facility]) [address] [place] [address] 23808 Sodium [Moles/Vol] 143 mmol/L Normal 136-145 [facility] Comment on above: Performed By: #### 2 432-8 #### MAGGI PARNELL ([id number]) [facility] ([facility]) [facility] [place] [address] Urea nitrogen [Mass/Vol] 28 mg/dL High 6-23 [facility] Comment on above: Performed By: #### 2 4323-8 #### MAGGI PARNELL ([id number]) [facility] ([facility]) [address] [place] [address] 46488 HbA1c (Bld) [Mass fraction]o n 07-07-2024 Average glucose Estimated from glycated hemoglobin (Bld) [Mass/Vol] 180 mg/dL Normal Not Established [facility] Comment on above: Order Comment: Diagn osis of Diabetes-Adults Non-Diabetic: < or = 5.6% Increased risk for developing diabetes: 5.7-6.4% Diagnostic of diabetes: > or = 6.5% Performed By: #### 4 548-4 #### ALENA Paredes ([id number]) [facility] ([facility]) [address] [place] [address] Hemoglobin A1c/Hemoglobin.to alcira 07-07-2024 HbA1c (Bld) [Mass fraction] 7.9 % High see below [facility] Comment on above: Order Comment: Diagn osis of Diabetes-Adults Non-Diabetic: < or = 5.6% Increased risk for developing diabetes: 5.7-6.4% Diagnostic of diabetes: > or = 6.5% Performed By: #### 4 548-4 #### ALENA Paredes ([id number]) [facility] ([facility]) [address] [place] [address] Phosphateon 07-07-2024 Phosphate [Mass/Vol] 3.8 mg/dL Normal 2.5-4.9 [facility] Comment on above: Result Comment: The performance characteristics of phosphorus testing in heparinized plasma have been validated by the individual laboratory site where testing is performed. Testing on heparinized plasma is not approved by the FDA; however, such approval is not necessary. Performed By: #### 2 777-1 #### MAGGI PARNELL ([id number]) [facility] ([facility]) [address] [place] [address] Thyrotropinon 07-07-2024 TSH Qn 0.85 m[IU]/L Normal 0.44-3.98 [facility] Comment on above: Order Comment: TSH t esting is performed using different testing methodology at [facility] than at other [facility]. Direct result comparisons should only be made within the same method. Performed By: #### 3 016-3 #### MAGGI PARNELL ([id number]) [facility] ([facility]) [address] [place] [address] Thyroxine.freeon 07-07-2024 Free T4 [Mass/Vol] 1.01 ng/dL Normal 0.61-1.12 [facility] Comment on above: Order Comment: Thyro xine Free testing is performed using different testing methodology at [facility] than at other [facility]. Direct result comparisons should only be made [...] By: #### 3 024-7 #### MAGGI PARNELL ([id number]) [facility] ([facility]) [address] [place] [address] 45066 Urateon 07-07-2024 Urate [Mass/Vol] 5.7 mg/dL Normal 4.0-7.5 [facility] Comment on above: Result Comment: Hortencia puncture immediately after or during the administration of Metamizole may lead to falsely low results. Testing should be performed immediately prior to Metamizole dosing. Performed By: #### 3 084-1 #### MAGGI PARNELL ([id number]) [facility] ([facility]) [address] [place] [address] 96977 PT D/C Summary (1)on 024 PT D/C Summary (1) Normal [facility] Albumin/Creatinineon 024 Albumin/Creatinine DL <= 20 mg/L (U) [Mass ratio] 221.6 ug/mg Creat High <30.0 [facility] Comment on above: Performed By: #### 1 4959-1 #### ALENA Paredes ([id number]) [facility] ([facility]) [address] [place] [address] Albumin/Creatinine DL <= 20 mg/L (U) [Mass ratio]on 02-07-2024 Albumin DL <= 20 mg/L (U) [Mass/Vol] 219.8 mg/L Normal Not established [facility] Comment on above: Performed By: #### 1 4959-1 #### ALENA Paredes ([id number]) [facility] ([facility]) [address] [place] [address] Creatinine (U) [Mass/Vol] 99.2 mg/dL Normal 20.0-370.0 [facility] Comment on above: Performed By: #### 1 4959-1 #### ALENA Paredes ([id number]) [facility] ([facility]) [address] [place] [address] Comprehensive metabolic 2000 panelon 02-07-2024 Albumin BCP dye [Mass/Vol] 4.0 g/dL Normal 3.4-5.0 [facility] Comment on above: Performed By: #### 2 4323-8 #### MAGGI PARNELL ([id number]) [facility] ([facility]) [address] [place] [address] ALP [Catalytic activity/Vol] 77 U/L Normal 33-136 [facility] Comment on above: Performed By: #### 2 4323-8 #### MAGGI PARNELL ([id number]) [facility] ([facility]) [address] [place] [address] 17794 ALT With P-5'-P [Catalytic activity/Vol] 7 U/L Low 10-52 [facility] Comment on above: Result Comment: Twila ents treated with Sulfasalazine may generate falsely decreased results for ALT. Performed By: #### 2 4323-8 #### MAGGI PARNELL ([id number]) [facility] ([facility]) [address] [place] [address]123 Anion gap [Moles/Vol] 12 mmol/L Normal 10-20 [facility] Comment on above: Performed By: #### 2 4323-8 #### MAGGI PARNELL ([id number]) [facility] ([facility]) [address] [place] [address] 62612 AST With P-5'-P [Catalytic activity/Vol] 14 U/L Normal 9-39 [facility] Comment on above: Performed By: #### 2 4323-8 #### MAGGI PARNELL ([id number]) [facility] ([facility]) [address] [place] [address]32 Bilirubin [Mass/Vol] 0.4 mg/dL Normal 0.0-1.2 [facility] Comment on above: Performed By: #### 2 4323-8 #### MAGGI PARNELL ([id number]) [facility] ([facility]) [address] [place] [address] Calcium [Mass/Vol] 9.2 mg/dL Normal 8.6-10.3 [facility] Comment on above: Performed By: #### 2 4323-8 #### MAGGI PARNELL ([id number]) [facility] ([facility]) [address] [place] [address] Chloride [Moles/Vol] 105 mmol/L Normal 98-107 [facility] Comment on above: Performed By: #### 2 4323-8 #### MAGGI PARNELL ([id number]) [facility] ([facility]) [address] [place] [address] 97619 CO2 [Moles/Vol] 29 mmol/L Normal 21-32 [facility] Comment on above: Performed By: #### 2 4323-8 #### MAGGI PARNELL ([id number]) [facility] ([facility]) [address] [place] [address] 55765 Creatinine [Mass/Vol] 1.92 mg/dL High 0.50-1.30 [facility] Comment on above: Performed By: #### 2 4323-8 #### MAGGI PARNELL ([id number]) [facility] ([facility]) [address] [place] [address] 26409 Glomerular filtration rate/1.73 sq M.predicted 35 mL/min/1.73m*2 Low >60 [facility] Comment on above: Result Comment: Calc ulations of estimated GFR are performed using the 2020 CKD-EPI Study Refit equation without the race variable for the IDMS-Traceable creatinine methods. https://jasn.asnjournals.org/content//ASN.20 33732882 Performed By: #### 2 4323-8 #### MAGGI PARNELL ([id number]) [facility] ([facility]) [address] [place] [address] 69248 Glucose [Mass/Vol] 81 mg/dL Normal 74-99 [facility] Comment on above: Performed By: #### 2 4323-8 #### MAGGI PARNELL ([id number]) [facility] ([facility]) [facility] [place] [address] Potassium [Moles/Vol] 4.5 mmol/L Normal 3.5-5.3 [facility] Comment on above: Performed By: #### 2 4323-8 #### MAGGI PARNELL ([id number]) [facility] ([facility]) [address] [place] [address] 02805 Protein [Mass/Vol] 6.4 g/dL Normal 6.4-8.2 [facility] Comment on above: Performed By: #### 2 4323-8 #### MAGGI PARNELL ([id number]) [facility] ([facility]) [address] [place] [address] 36998 Sodium [Moles/Vol] 141 mmol/L Normal 136-145 [facility] Comment on above: Performed By: #### 2 4323-8 #### MAGGI PARNELL ([id number]) [facility] ([facility]) [address] [place] [address] 98178 Urea nitrogen [Mass/Vol] 29 mg/dL High 6-23 [facility] Comment on above: Performed By: #### 2 4323-8 #### MAGGI PARNELL ([id number]) [facility] ([facility]) [address] [place] [address] 79533 Basophil percentageOrdered B y: Ryley Jeter on 12-15-2023 Chloride [Moles/Vol] 109 mmol/L 98-107 [facility] Glucose [Mass/Vol] 126 mg/dL 74-106 [facility] Comment on above: Fasting Glucose resu lt greater than or equal to 126 mg/dL suggests DIABETES MELLITUS per A.D.A. criteria. Potassium [Moles/Vol] 4.1 mmol/L 3.5-5.1 [facility] Sodium [Moles/Vol] 140 mmol/L 136-145 [facility] Laboratory - Chemistry and C hemistry - challengeOrdered By: Ryley Jeter on 12-15-2023 CO2 [Moles/Vol] 29.0 mmol/L 21.0-32.0 [facility] Urea nitrogen/Creatinine [Mass ratio] 14.9 mg/mg 10-20 [facility] No Panel InformationOrdered By: Ryley Jeter on 12-15-2023 Estimated GFR (MDRD) Amer 45 mL/min >60 [facility] Comment on above: GFR Calc Estimated GFR (MDRD) Non-Af Amer 37 mL/min >60 [facility] Comment on above: Non- GFR Calc Serum or plasma calcium nikkie urement (mass/volume)Ordered By: Ryley Jeter on 12-15-2023 Calcium [Mass/Vol] 9.4 mg/dL 8.5-10.1 [facility] Serum or plasma creatinine m easurement (mass/volume)Ordered By: Ryley Jeter on 12-15-2023 Creatinine [Mass/Vol] 1.88 mg/dL 0.70-1.30 [facility] Comment on above: The validity of the calculated GFR & GFRAA in patients over 70 years has not been determined. Clinical correlation is essential. Serum or plasma urea nitroge n measurement (mass/volume)Ordered By: Ryley Jeter on 12-15-2023 Urea nitrogen [Mass/Vol] 28 mg/dL 7-18 [facility] Thin prep Papanicolaou smear with manual screeningOrdered By: Ryley Jeter on 12-15-2023 Thin prep Papanicolaou smear with manual screening 2 5-15 [facility] APTTOrdered By: Burton lr on 12-01-2023 aPTT Coag (Bld) [Time] 35 s High [facility] Basic metabolic 2000 panelon 12-01-2023 Anion gap [Moles/Vol] 10 mmol/L 10 - 2 0 mmol/L [facility] Calcium [Mass/Vol] 8.9 mg/dL 8.4 - 10. 2 mg/dL [facility] Chloride [Moles/Vol] 105 mmol/L 98 - 10 8 mmol/L [facility] Creatinine [Mass/Vol] 1.76 mg/dL High 0.80 - 1.30 mg/dL [facility] GFR/1.73 sq M.predicted CKD-EPI (S/P/Bld) [Vol rate/Area] 39 Low - PINF [facility] Glucose [Mass/Vol] 82 mg/dL 65 - 99 mg/dL [facility] HCO3 [Moles/Vol] 30 mmol/L 21 - 32 mmol/L [facility] Interpretation and review of laboratory results Abnormal [facility] Potassium [Moles/Vol] 3.4 mmol/L Low 3.5 - 5.1 mmol/L [facility] Sodium [Moles/Vol] 142 mmol/L 135 - 145 mmol/L [facility] Urea nitrogen [Mass/Vol] 26 mg/dL High 8 - 25 mg/d L [facility] Urea nitrogen/Creatinine [Mass ratio] 14.8 mg/mg 10.0 - 20.0 [facility] CBC Auto Differentialon 11-03 Basophils (Bld) [#/Vol] 0.06 10*3/uL [facility] Basophils/100 WBC (Bld) 0.7 % [facility] Eosinophils (Bld) [#/Vol] 0.61 10*3/uL High [facility] Eosinophils/100 WBC (Bld) 7.4 % [facility] Erythrocyte distribution width (RBC) [Entitic vol] 13.3 % 11.6 - 14.8 % [facility] Hematocrit (Bld) [Volume fraction] 36.6 % Low 41.0 - 53.0 % [facility] Hemoglobin (Bld) [Mass/Vol] 12.0 g/dL Low 13.5 - 17.5 g/dL [facility] Immature granulocytes (Bld) [#/Vol] 0.02 10*3/uL [facility] Immature granulocytes/100 WBC (Bld) 0.20 % [facility] Interpretation and review of laboratory results Abnormal [facility] Lymphocytes (Bld) [#/Vol] 1.32 10*3/uL [facility] Lymphocytes/100 WBC (Bld) 16.1 % [facility] MCH (RBC) [Entitic mass] 30.5 pg 26. 0 - 34.0 pg [facility] MCHC (RBC) [Mass/Vol] 32.8 g/dL 31.0 - 37.0 g/dL [facility] MCV (RBC) [Entitic vol] 92.9 fL 80.0 - 100.0 fL [facility] Monocytes (Bld) [#/Vol] 0.96 10*3/uL High [facility] Monocytes/100 WBC (Bld) 11.7 % [facility] Neutrophils (Bld) [#/Vol] 5.25 10*3/uL [facility] Neutrophils/100 WBC (Bld) 63.9 % [facility] Nucleated RBC (Bld) [#/Vol] 0.00 10*3/uL [facility] Nucleated RBC/100 WBC (Bld) [Ratio] 0.0 % [facility] Platelet mean volume (Bld) [Entitic vol] 12.4 fL 9.4 - 12.4 fL [facility] Platelets (Bld) [#/Vol] 115 10*3/uL Low [facility] RBC (Bld) [#/Vol] 3.94 10*6/uL Low [facility] WBC (Bld) [#/Vol] 8.22 10*3/uL [facility] Glucose (Bld) [Mass/Vol]on 0 12-01-2023 Glucose [Mass/Vol] 151 mg/dL High 65 - 99 mg/dL [facility] Interpretation and review of laboratory results Abnormal [facility] Glucose [Mass/Vol] 472 mg/dL Critically high 65 - 99 mg/d L [facility] Interpretation and review of laboratory results Abnormal [facility] Glucose [Mass/Vol] 454 mg/dL Critically high 65 - 99 mg/d L [facility] Interpretation and review of laboratory results Abnormal [facility] Glucose [Mass/Vol] 87 mg/dL 65 - 99 mg/dL [facility] Interpretation and review of laboratory results Normal [facility] Magnesium Levelon 12-01-2023 Magnesium [Mass/Vol] 2.1 mg/dL 1.6 - 2 .4 mg/dL [facility] Magnesium [Mass/Vol]on 12-01 Interpretation and review of laboratory results Normal [facility] aPTT Coag (Bld) [Time]Ordere d By: Burton Zendejas on 12-01-2023 Interpretation and review of laboratory results Abnormal [facility] APTTOrdered By: Zoila Marcano e on 11-30-2023 aPTT Coag (Bld) [Time] 35 s High [facility] Basic metabolic 2000 panelon 11-30-2023 Anion gap [Moles/Vol] 9 mmol/L Low 10 - 2 0 mmol/L [facility] Calcium [Mass/Vol] 8.6 mg/dL 8.4 - 10. 2 mg/dL [facility] Chloride [Moles/Vol] 104 mmol/L 98 - 10 8 mmol/L [facility] Creatinine [Mass/Vol] 1.77 mg/dL High 0.80 - 1.30 mg/dL [facility] GFR/1.73 sq M.predicted CKD-EPI (S/P/Bld) [Vol rate/Area] 39 Low - PINF [facility] Glucose [Mass/Vol] 322 mg/dL High 65 - 99 mg/dL [facility] HCO3 [Moles/Vol] 29 mmol/L 21 - 32 mmol/L [facility] Interpretation and review of laboratory results Abnormal [facility] Potassium [Moles/Vol] 3.8 mmol/L 3.5 - 5.1 mmol/L [facility] Sodium [Moles/Vol] 138 mmol/L 135 - 145 mmol/L [facility] Urea nitrogen [Mass/Vol] 30 mg/dL High 8 - 25 mg/d L [facility] Urea nitrogen/Creatinine [Mass ratio] 16.9 mg/mg 10.0 - 20.0 [facility] CBC Auto Differentialon 11-03 Basophils (Bld) [#/Vol] 0.08 10*3/uL [facility] Basophils/100 WBC (Bld) 0.9 % [facility] Eosinophils (Bld) [#/Vol] 0.71 10*3/uL High [facility] Eosinophils/100 WBC (Bld) 8.0 % [facility] Erythrocyte distribution width (RBC) [Entitic vol] 13.5 % 11.6 - 14.8 % [facility] Hematocrit (Bld) [Volume fraction] 35.9 % Low 41.0 - 53.0 % [facility] Hemoglobin (Bld) [Mass/Vol] 11.8 g/dL Low 13.5 - 17.5 g/dL [facility] Immature granulocytes (Bld) [#/Vol] 0.03 10*3/uL [facility] Immature granulocytes/100 WBC (Bld) 0.30 % [facility] Interpretation and review of laboratory results Abnormal [facility] Lymphocytes (Bld) [#/Vol] 1.18 10*3/uL [facility] Lymphocytes/100 WBC (Bld) 13.3 % [facility] MCH (RBC) [Entitic mass] 30.5 pg 26. 0 - 34.0 pg [facility] MCHC (RBC) [Mass/Vol] 32.9 g/dL 31.0 - 37.0 g/dL [facility] MCV (RBC) [Entitic vol] 92.8 fL 80.0 - 100.0 fL [facility] Monocytes (Bld) [#/Vol] 0.84 10*3/uL [facility] Monocytes/100 WBC (Bld) 9.4 % [facility] Neutrophils (Bld) [#/Vol] 6.05 10*3/uL [facility] Neutrophils/100 WBC (Bld) 68.1 % [facility] Nucleated RBC (Bld) [#/Vol] 0.00 10*3/uL [facility] Nucleated RBC/100 WBC (Bld) [Ratio] 0.0 % [facility] Platelet mean volume (Bld) [Entitic vol] 12.1 fL 9.4 - 12.4 fL [facility] Platelets (Bld) [#/Vol] 120 10*3/uL Low [facility] RBC (Bld) [#/Vol] 3.87 10*6/uL Low [facility] WBC (Bld) [#/Vol] 8.89 10*3/uL [facility] CT Chest WO contraston 11-30 GE RIS GE RIS [facility] CT Chest WO contrastOrdered By: Alice Kaminski on 11-30-2023 [facility] Work Phone: Echocardiogram completeon Aortic valve area 2.01723 cm [facility] AV mean gradient 3.[address] [facility] AV peak gradient 6.85[address] [facility] EF 63.3016 % [facility] FUJI SYNAPSE CV [facility] Electrocardiogram, 12-leadon 11-30-2023 Atrial Rate 97 BPM [facility] P Stephenson 77 degrees [facility] P-R Interval 152 ms [facility] Q-T Interval 376 ms [facility] QRS Duration 76 ms [facility] QTC Calculation (Bezet) 477 ms O [facility] R Stephenson 72 degrees [facility] T Stephenson 51 degrees [facility] Ventricular Rate 97 BPM [facility] th MUSE [facility] Glucose (Bld) [Mass/Vol]on 0 11-30-2023 Glucose [Mass/Vol] 190 mg/dL High 65 - 99 mg/dL [facility] Interpretation and review of laboratory results Abnormal [facility] Glucose [Mass/Vol] 103 mg/dL High 65 - 99 mg/dL [facility] Interpretation and review of laboratory results Abnormal [facility] Magnesium Levelon 11-30-2023 Magnesium [Mass/Vol] 2.2 mg/dL 1.6 - 2 .4 mg/dL [facility] Magnesium [Mass/Vol]on 11-30 Interpretation and review of laboratory results Normal [facility] No Panel Informationon 11-30 [facility] aPTT Coag (Bld) [Time]Ordere d By: Zoila Ruiz on 11-30-2023 Interpretation and review of laboratory results Abnormal [facility] APTTon 11-29-2023 aPTT Coag (Bld) [Time] 38 s High [facility] APTT Heparin Coverageon 11-02 aPTT Coag (Bld) [Time] 98 s High [facility] Interpretation and review of laboratory results Abnormal [facility] APTT Heparin CoverageOrdered By: Tania Escobedo on 11-29-2023 aPTT Coag (Bld) [Time] Critically high [facility] Interpretation and review of laboratory results Abnormal [facility] Bacteria identified Aer cx N om (Sput)Ordered By: Franco Armenta on 11-29-2023 Microscopic observation Gram stain Nom (Sput) Few WBC [facility] Microscopic observation Gram stain Nom (Sput) Few Epithelial Cells [facility] Microscopic observation Gram stain Nom (Sput) Positive [facility] Microscopic observation Gram stain Nom (Sput) Rare [facility] Basic metabolic 2000 panelon 11-29-2023 Anion gap [Moles/Vol] 7 mmol/L Low 10 - 2 0 mmol/L [facility] Calcium [Mass/Vol] 8.4 mg/dL 8.4 - 10. 2 mg/dL [facility] Chloride [Moles/Vol] 106 mmol/L 98 - 10 8 mmol/L [facility] Creatinine [Mass/Vol] 1.91 mg/dL High 0.80 - 1.30 mg/dL [facility] GFR/1.73 sq M.predicted CKD-EPI (S/P/Bld) [Vol rate/Area] 35 Low - PINF [facility] Glucose [Mass/Vol] 234 mg/dL High 65 - 99 mg/dL [facility] HCO3 [Moles/Vol] 28 mmol/L 21 - 32 mmol/L [facility] Interpretation and review of laboratory results Abnormal [facility] Potassium [Moles/Vol] 4.0 mmol/L 3.5 - 5.1 mmol/L [facility] Sodium [Moles/Vol] 137 mmol/L 135 - 145 mmol/L [facility] Urea nitrogen [Mass/Vol] 34 mg/dL High 8 - 25 mg/d L [facility] Urea nitrogen/Creatinine [Mass ratio] 17.8 mg/mg 10.0 - 20.0 [facility] CBC Auto Differentialon 11-02 Basophils (Bld) [#/Vol] 0.10 10*3/uL [facility] Basophils/100 WBC (Bld) 0.9 % [facility] Eosinophils (Bld) [#/Vol] 0.48 10*3/uL [facility] Eosinophils/100 WBC (Bld) 4.4 % [facility] Erythrocyte distribution width (RBC) [Entitic vol] 14.0 % 11.6 - 14.8 % [facility] Hematocrit (Bld) [Volume fraction] 32.8 % Low 41.0 - 53.0 % [facility] Hemoglobin (Bld) [Mass/Vol] 10.7 g/dL Low 13.5 - 17.5 g/dL [facility] Immature granulocytes (Bld) [#/Vol] 0.05 10*3/uL [facility] Immature granulocytes/100 WBC (Bld) 0.50 % [facility] Interpretation and review of laboratory results Abnormal [facility] Lymphocytes (Bld) [#/Vol] 1.92 10*3/uL [facility] Lymphocytes/100 WBC (Bld) 17.7 % [facility] MCH (RBC) [Entitic mass] 30.6 pg 26. 0 - 34.0 pg [facility] MCHC (RBC) [Mass/Vol] 32.6 g/dL 31.0 - 37.0 g/dL [facility] MCV (RBC) [Entitic vol] 93.7 fL 80.0 - 100.0 fL [facility] Monocytes (Bld) [#/Vol] 1.02 10*3/uL High [facility] Monocytes/100 WBC (Bld) 9.4 % [facility] Neutrophils (Bld) [#/Vol] 7.26 10*3/uL High [facility] Neutrophils/100 WBC (Bld) 67.1 % [facility] Nucleated RBC (Bld) [#/Vol] 0.00 10*3/uL [facility] Nucleated RBC/100 WBC (Bld) [Ratio] 0.0 % [facility] Platelet mean volume (Bld) [Entitic vol] 12.1 fL 9.4 - 12.4 fL [facility] Platelets (Bld) [#/Vol] 130 10*3/uL Low [facility] RBC (Bld) [#/Vol] 3.50 10*6/uL Low [facility] WBC (Bld) [#/Vol] 10.83 10*3/uL [facility] CT Chest WO contraston 11-29 Radiology Study observation (narrative) [facility] Glucose (Bld) [Mass/Vol]on 0 11-29-2023 Glucose [Mass/Vol] 174 mg/dL High 65 - 99 mg/dL [facility] Interpretation and review of laboratory results Abnormal [facility] Glucose [Mass/Vol] 266 mg/dL High 65 - 99 mg/dL [facility] Interpretation and review of laboratory results Abnormal [facility] HbA1c (Bld) [Mass fraction]O rdered By: Lidia Ruff on 11-29-2023 Average glucose Estimated from glycated hemoglobin (Bld) [Mass/Vol] 174 mg/dL High 68 - 114 mg/dL [facility] Interpretation and review of laboratory results Abnormal [facility] Hemoglobin [id number] By: Davina Ruff on 11-29-2023 HbA1c (Bld) [Mass fraction] 7.7 % High 4.0 - 5.6 % [facility] Magnesium Levelon 11-29-2023 Magnesium [Mass/Vol] 2.2 mg/dL 1.6 - 2 .4 mg/dL [facility] Magnesium [Mass/Vol]on 11-29 Interpretation and review of laboratory results Normal [facility] No Panel Informationon 11-29 [facility] Sputum Aerobic CultureOrdere d By: Franco Armenta on 11-29-2023 Bacteria identified Aer cx Nom (Sput) Normal [place] After 48 Hours [facility] aPTT Coag (Bld) [Time]on Interpretation and review of laboratory results Abnormal [facility] APTTon 11-28-2023 aPTT Coag (Bld) [Time] 102 s High [facility] Basic metabolic 2000 panelon 11-28-2023 Anion gap [Moles/Vol] 13 mmol/L 10 - 2 0 mmol/L [facility] Calcium [Mass/Vol] 9.0 mg/dL 8.4 - 10. 2 mg/dL [facility] Chloride [Moles/Vol] 110 mmol/L High 98 - 10 8 mmol/L [facility] Creatinine [Mass/Vol] 1.99 mg/dL High 0.80 - 1.30 mg/dL [facility] GFR/1.73 sq M.predicted CKD-EPI (S/P/Bld) [Vol rate/Area] 34 Low - PINF [facility] Glucose [Mass/Vol] 183 mg/dL High 65 - 99 mg/dL [facility] HCO3 [Moles/Vol] 23 mmol/L 21 - 32 mmol/L [facility] Interpretation and review of laboratory results Abnormal [facility] Potassium [Moles/Vol] 4.3 mmol/L 3.5 - 5.1 mmol/L [facility] Sodium [Moles/Vol] 142 mmol/L 135 - 145 mmol/L [facility] Urea nitrogen [Mass/Vol] 33 mg/dL High 8 - 25 mg/d L [facility] Urea nitrogen/Creatinine [Mass ratio] 16.6 mg/mg 10.0 - 20.0 [facility] Anion gap [Moles/Vol] 9 mmol/L Low 10 - 2 0 mmol/L [facility] Calcium [Mass/Vol] 8.8 mg/dL 8.4 - 10. 2 mg/dL [facility] Chloride [Moles/Vol] 111 mmol/L High 98 - 10 8 mmol/L [facility] Creatinine [Mass/Vol] 2.03 mg/dL High 0.80 - 1.30 mg/dL [facility] GFR/1.73 sq M.predicted CKD-EPI (S/P/Bld) [Vol rate/Area] 33 Low - PINF [facility] Glucose [Mass/Vol] 160 mg/dL High 65 - 99 mg/dL [facility] HCO3 [Moles/Vol] 27 mmol/L 21 - 32 mmol/L [facility] Interpretation and review of laboratory results Abnormal [facility] Potassium [Moles/Vol] 4.3 mmol/L 3.5 - 5.1 mmol/L [facility] Sodium [Moles/Vol] 143 mmol/L 135 - 145 mmol/L [facility] Urea nitrogen [Mass/Vol] 34 mg/dL High 8 - 25 mg/d L [facility] [facility] Urea nitrogen/Creatinine [Mass ratio] 16.7 mg/mg 10.0 - 20.0 [facility] Anion gap [Moles/Vol] 10 mmol/L 10 - 2 0 mmol/L [facility] Calcium [Mass/Vol] 8.7 mg/dL 8.4 - 10. 2 mg/dL [facility] Chloride [Moles/Vol] 112 mmol/L High 98 - 10 8 mmol/L [facility] Creatinine [Mass/Vol] 2.03 mg/dL High 0.80 - 1.30 mg/dL [facility] GFR/1.73 sq M.predicted CKD-EPI (S/P/Bld) [Vol rate/Area] 33 Low - PINF [facility] Glucose [Mass/Vol] 119 mg/dL High 65 - 99 mg/dL [facility] HCO3 [Moles/Vol] 24 mmol/L 21 - 32 mmol/L [facility] Interpretation and review of laboratory results Abnormal [facility] Potassium [Moles/Vol] 3.9 mmol/L 3.5 - 5.1 mmol/L [facility] Sodium [Moles/Vol] 142 mmol/L 135 - 145 mmol/L [facility] Urea nitrogen [Mass/Vol] 35 mg/dL High 8 - 25 mg/d L [facility] Urea nitrogen/Creatinine [Mass ratio] 17.2 mg/mg 10.0 - 20.0 [facility] Beta hydroxybutyrate [Moles/ Vol]on 11-28-2023 Interpretation and review of laboratory results Abnormal [facility] Interpretation and review of laboratory results Abnormal [facility] Beta-Hydroxybutyrateon 11-28 Beta hydroxybutyrate [Moles/Vol] 0.8 mmol/L High 0.0 - 0.3 mmol/L [facility] Beta hydroxybutyrate [Moles/Vol] 0.4 mmol/L High 0.0 - 0.3 mmol/L [facility] Beta hydroxybutyrate [Moles/Vol] 0.6 mmol/L High 0.0 - 0.3 mmol/L [facility] CBC Auto Differentialon 11-02 Basophils (Bld) [#/Vol] 0.07 10*3/uL [facility] Basophils/100 WBC (Bld) 0.5 % [facility] Eosinophils (Bld) [#/Vol] 0.09 10*3/uL [facility] Eosinophils/100 WBC (Bld) 0.6 % [facility] Erythrocyte distribution width (RBC) [Entitic vol] 14.3 % 11.6 - 14.8 % [facility] Hematocrit (Bld) [Volume fraction] 33.6 % Low 41.0 - 53.0 % [facility] Hemoglobin (Bld) [Mass/Vol] 10.8 g/dL Low 13.5 - 17.5 g/dL [facility] Immature granulocytes (Bld) [#/Vol] 0.05 10*3/uL [facility] Immature granulocytes/100 WBC (Bld) 0.40 % [facility] Interpretation and review of laboratory results Abnormal [facility] Lymphocytes (Bld) [#/Vol] 2.69 10*3/uL [facility] Lymphocytes/100 WBC (Bld) 18.9 % [facility] MCH (RBC) [Entitic mass] 30.4 pg 26. 0 - 34.0 pg [facility] MCHC (RBC) [Mass/Vol] 32.1 g/dL 31.0 - 37.0 g/dL [facility] MCV (RBC) [Entitic vol] 94.6 fL 80.0 - 100.0 fL [facility] Monocytes (Bld) [#/Vol] 1.26 10*3/uL High [facility] Monocytes/100 WBC (Bld) 8.9 % [facility] Neutrophils (Bld) [#/Vol] 10.06 10*3/uL High [facility] Neutrophils/100 WBC (Bld) 70.7 % [facility] Nucleated RBC (Bld) [#/Vol] 0.00 10*3/uL [facility] Nucleated RBC/100 WBC (Bld) [Ratio] 0.0 % [facility] Platelet mean volume (Bld) [Entitic vol] 11.9 fL 9.4 - 12.4 fL [facility] Platelets (Bld) [#/Vol] 151 10*3/uL [facility] RBC (Bld) [#/Vol] 3.55 10*6/uL Low [facility] WBC (Bld) [#/Vol] 14.22 10*3/uL High [facility] CRP [Mass/Vol]on 11-28-2023 Interpretation and review of laboratory results Abnormal [facility] CRP, Inflammationon 11-28-19 CRP [Mass/Vol] 11.6 mg/L High NINF - 10.0 mg/L [facility] D-Dimer, Quantitativeon 11-02 Fibrin D-dimer FEU (PPP) [Mass/Vol] 1.32 High [facility] Interpretation and review of laboratory results Abnormal [facility] Glucose (Bld) [Mass/Vol]on 0 11-28-2023 Glucose [Mass/Vol] 222 mg/dL High 65 - 99 mg/dL [facility] Interpretation and review of laboratory results Abnormal [facility] Glucose [Mass/Vol] 182 mg/dL High 65 - 99 mg/dL [facility] Interpretation and review of laboratory results Abnormal [facility] Glucose [Mass/Vol] 286 mg/dL High 65 - 99 mg/dL [facility] Interpretation and review of laboratory results Abnormal [facility] Glucose [Mass/Vol] 209 mg/dL High 65 - 99 mg/dL [facility] Interpretation and review of laboratory results Abnormal [facility] Glucose [Mass/Vol] 167 mg/dL High 65 - 99 mg/dL [facility] Interpretation and review of laboratory results Abnormal [facility] LDHon 11-28-2023 LDH Lactate to pyruvate reaction [Catalytic activity/Vol] 299 U/L High 100 - 250 U/L [facility] Magnesium Levelon 11-28-2023 Magnesium [Mass/Vol] 2.5 mg/dL High 1.6 - 2 .4 mg/dL [facility] Magnesium [Mass/Vol] 2.6 mg/dL High 1.6 - 2 .4 mg/dL [facility] Magnesium [Mass/Vol] 2.2 mg/dL 1.6 - 2 .4 mg/dL [facility] Magnesium [Mass/Vol]on 11-28 Interpretation and review of laboratory results Abnormal [facility] Interpretation and review of laboratory results Abnormal [facility] Interpretation and review of laboratory results Normal [facility] No Panel Informationon 11-28 Interpretation and review of laboratory results Abnormal [facility] Phosphate [Mass/Vol]on 11-28 Interpretation and review of laboratory results Normal [facility] Interpretation and review of laboratory results Abnormal [facility] Interpretation and review of laboratory results Abnormal [facility] Phosphoruson 11-28-2023 Phosphate [Mass/Vol] 3.6 mg/dL 2.3 - 3 .7 mg/dL [facility] Phosphate [Mass/Vol] 3.8 mg/dL High 2.3 - 3 .7 mg/dL [facility] Phosphate [Mass/Vol] 3.8 mg/dL High 2.3 - 3 .7 mg/dL [facility] aPTT Coag (Bld) [Time]on Interpretation and review of laboratory results Abnormal [facility] APTTOrdered By: Becky Mercado on 11-27-2023 aPTT Coag (Bld) [Time] 78 s High [facility] APTTOrdered By: Anjali Hartmann on 11-27-2023 aPTT Coag (Bld) [Time] 66 s High [facility] APTT Heparin CoverageOrdered By: Yesenia Cardona on 11-27-2023 aPTT Coag (Bld) [Time] 87 s High [facility] Interpretation and review of laboratory results Abnormal [facility] Basic metabolic 2000 panelon 11-27-2023 Anion gap [Moles/Vol] 9 mmol/L Low 10 - 2 0 mmol/L [facility] Calcium [Mass/Vol] 8.7 mg/dL 8.4 - 10. 2 mg/dL [facility] Chloride [Moles/Vol] 113 mmol/L High 98 - 10 8 mmol/L [facility] Creatinine [Mass/Vol] 2.24 mg/dL High 0.80 - 1.30 mg/dL [facility] GFR/1.73 sq M.predicted CKD-EPI (S/P/Bld) [Vol rate/Area] 29 Low - PINF [facility] Glucose [Mass/Vol] 168 mg/dL High 65 - 99 mg/dL [facility] HCO3 [Moles/Vol] 25 mmol/L 21 - 32 mmol/L [facility] Interpretation and review of laboratory results Abnormal [facility] Potassium [Moles/Vol] 3.7 mmol/L 3.5 - 5.1 mmol/L [facility] Sodium [Moles/Vol] 143 mmol/L 135 - 145 mmol/L [facility] Urea nitrogen [Mass/Vol] 37 mg/dL High 8 - 25 mg/d L [facility] Urea nitrogen/Creatinine [Mass ratio] 16.5 mg/mg 10.0 - 20.0 [facility] Anion gap [Moles/Vol] 9 mmol/L Low 10 - 2 0 mmol/L [facility] Calcium [Mass/Vol] 9.0 mg/dL 8.4 - 10. 2 mg/dL [facility] Chloride [Moles/Vol] 113 mmol/L High 98 - 10 8 mmol/L [facility] Creatinine [Mass/Vol] 2.24 mg/dL High 0.80 - 1.30 mg/dL [facility] GFR/1.73 sq M.predicted CKD-EPI (S/P/Bld) [Vol rate/Area] 29 Low - PINF [facility] Glucose [Mass/Vol] 153 mg/dL High 65 - 99 mg/dL [facility] HCO3 [Moles/Vol] 24 mmol/L 21 - 32 mmol/L [facility] Interpretation and review of laboratory results Abnormal [facility] Potassium [Moles/Vol] 4.0 mmol/L 3.5 - 5.1 mmol/L [facility] Sodium [Moles/Vol] 142 mmol/L 135 - 145 mmol/L [facility] Urea nitrogen [Mass/Vol] 39 mg/dL High 8 - 25 mg/d L [facility] Urea nitrogen/Creatinine [Mass ratio] 17.4 mg/mg 10.0 - 20.0 [facility] Anion gap [Moles/Vol] 13 mmol/L 10 - 2 0 mmol/L [facility] Calcium [Mass/Vol] 9.3 mg/dL 8.4 - 10. 2 mg/dL [facility] Chloride [Moles/Vol] 112 mmol/L High 98 - 10 8 mmol/L [facility] Creatinine [Mass/Vol] 2.26 mg/dL High 0.80 - 1.30 mg/dL [facility] GFR/1.73 sq M.predicted CKD-EPI (S/P/Bld) [Vol rate/Area] 29 Low - PINF [facility] Glucose [Mass/Vol] 114 mg/dL High 65 - 99 mg/dL [facility] HCO3 [Moles/Vol] 23 mmol/L 21 - 32 mmol/L [facility] Interpretation and review of laboratory results Abnormal [facility] Potassium [Moles/Vol] 3.7 mmol/L 3.5 - 5.1 mmol/L [facility] Sodium [Moles/Vol] 144 mmol/L 135 - 145 mmol/L [facility] Urea nitrogen [Mass/Vol] 42 mg/dL High 8 - 25 mg/d L [facility] Urea nitrogen/Creatinine [Mass ratio] 18.6 mg/mg 10.0 - 20.0 [facility] Anion gap [Moles/Vol] 13 mmol/L 10 - 2 0 mmol/L [facility] Calcium [Mass/Vol] 9.2 mg/dL 8.4 - 10. 2 mg/dL [facility] Chloride [Moles/Vol] 111 mmol/L High 98 - 10 8 mmol/L [facility] Creatinine [Mass/Vol] 2.35 mg/dL High 0.80 - 1.30 mg/dL [facility] GFR/1.73 sq M.predicted CKD-EPI (S/P/Bld) [Vol rate/Area] 27 Low - PINF [facility] Glucose [Mass/Vol] 340 mg/dL High 65 - 99 mg/dL [facility] HCO3 [Moles/Vol] 21 mmol/L 21 - 32 mmol/L [facility] Interpretation and review of laboratory results Abnormal [facility] Potassium [Moles/Vol] 3.4 mmol/L Low 3.5 - 5.1 mmol/L [facility] Sodium [Moles/Vol] 142 mmol/L 135 - 145 mmol/L [facility] Urea nitrogen [Mass/Vol] 42 mg/dL High 8 - 25 mg/d L [facility] Urea nitrogen/Creatinine [Mass ratio] 17.9 mg/mg 10.0 - 20.0 [facility] Basic metabolic 2000 panelOr dered By: Moody Hughes on 11-27-2023 Anion gap [Moles/Vol] 13 mmol/L 10 - 2 0 mmol/L [facility] Calcium [Mass/Vol] 8.9 mg/dL 8.4 - 10. 2 mg/dL [facility] Chloride [Moles/Vol] 107 mmol/L 98 - 10 8 mmol/L [facility] Creatinine [Mass/Vol] 2.24 mg/dL High 0.80 - 1.30 mg/dL [facility] GFR/1.73 sq M.predicted CKD-EPI (S/P/Bld) [Vol rate/Area] 29 Low - PINF [facility] Glucose [Mass/Vol] 523 mg/dL Critically high 65 - 99 mg/d L [facility] HCO3 [Moles/Vol] 21 mmol/L 21 - 32 mmol/L [facility] Interpretation and review of laboratory results Abnormal [facility] Potassium [Moles/Vol] 4.6 mmol/L 3.5 - 5.1 mmol/L [facility] Sodium [Moles/Vol] 136 mmol/L 135 - 145 mmol/L [facility] Urea nitrogen [Mass/Vol] 42 mg/dL High 8 - 25 mg/d L [facility] Urea nitrogen/Creatinine [Mass ratio] 18.8 mg/mg 10.0 - 20.0 [facility] Beta hydroxybutyrate [Moles/ Vol]on 11-27-2023 Interpretation and review of laboratory results Normal [facility] Interpretation and review of laboratory results Normal [facility] Interpretation and review of laboratory results Normal [facility] Interpretation and review of laboratory results Normal [facility] Beta-Hydroxybutyrateon 11-27 Beta hydroxybutyrate [Moles/Vol] mmol/L 0.0 - 0.3 mmol/L [facility] Beta hydroxybutyrate [Moles/Vol] 0.2 mmol/L 0.0 - 0.3 mmol/L [facility] Beta hydroxybutyrate [Moles/Vol] mmol/L 0.0 - 0.3 mmol/L [facility] Beta hydroxybutyrate [Moles/Vol] 0.2 mmol/L 0.0 - 0.3 mmol/L [facility] Beta hydroxybutyrate [Moles/Vol] 1.9 mmol/L High 0.0 - 0.3 mmol/L [facility] CBC Auto Differentialon 11-02 Basophils (Bld) [#/Vol] 0.04 10*3/uL [facility] Basophils/100 W[facility] (Bld) 0.2 [facility] [#/Vol] 0.00 10*3/uL [facility] Eosinophils/100 WBC (Bld) 0.0 % [facility] Erythrocyte distribution width (RBC) [Entitic vol] 14.0 % 11.6 - 14.8 % [facility] Hematocrit (Bld) [Volume fraction] 34.0 % Low 41.0 - 53.0 % [facility] Hemoglobin (Bld) [Mass/Vol] 11.1 g/dL Low 13.5 - 17.5 g/dL [facility] Immature granulocytes (Bld) [#/Vol] 0.11 10*3/uL [facility] Immature granulocytes/100 WBC (Bld) 0.50 % [facility] Interpretation and review of laboratory results Abnormal [facility] Lymphocytes (Bld) [#/Vol] 0.91 10*3/uL [facility] Lymphocytes/100 WBC (Bld) 3.8 % [facility] MCH (RBC) [Entitic mass] 30.9 pg 26. 0 - 34.0 pg [facility] MCHC (RBC) [Mass/Vol] 32.6 g/dL 31.0 - 37.0 g/dL [facility] MCV (RBC) [Entitic vol] 94.7 fL 80.0 - 100.0 fL [facility] Monocytes (Bld) [#/Vol] 1.21 10*3/uL [facility] Monocytes/100 WBC (Bld) 5.1 % [facility] Neutroph[facility] ([facility]ld[facility] [#/Vol] 21.42 10*3/uL [facility] Neutrophils/100 WBC (Bld) 90.4 % [facility] Nucleated RBC (Bld) [#/Vol] 0.00 10*3/uL [facility] Nucleated RBC/100 WBC (Bld) [Ratio] 0.0 % [facility] Platelet mean volume (Bld) [Entitic vol] 11.9 fL 9.4 - 12.4 fL [facility] Platelets (Bld) [#/Vol] 220 10*3/uL [facility] RBC (Bld) [#/Vol] 3.59 10*6/uL Low [facility] WBC (Bld) [#/Vol] 23.69 10*3/uL [facility] CRP [Mass/Vol]on 11-27-2023 Interpretation and review of laboratory results Normal [facility] CRP, Inflammationon 11-27-19 24 CRP [Mass/Vol] mg/L NINF - 10.0 mg/L [facility] Clostridium difficile Testin gOrdered By: Nina Martinez on 11-27-2023 C. difficile Interpretation Negative [facility] Specimen Acceptability Acceptable [facility] ESR Westergren method (Bld) [Velocity]on 11-27-2023 ESR (Bld) [Velocity] 21 mm/h [facility] Interpretation and review of laboratory results Abnormal [facility] Glucose (Bld) [Mass/Vol]on 0 11-27-2023 Glucose [Mass/Vol] 85 mg/dL 65 - 99 mg/dL [facility] Interpretation and review of laboratory results Normal [facility] Glucose [Mass/Vol] 106 mg/dL High 65 - 99 mg/dL [facility] Interpretation and review of laboratory results Abnormal [facility] Glucose [Mass/Vol] 179 mg/dL High 65 - 99 mg/dL [facility] Interpretation and review of laboratory results Abnormal [facility] Glucose [Mass/Vol] 255 mg/dL High 65 - 99 mg/dL [facility] Interpretation and review of laboratory results Abnormal [facility] Glucose [Mass/Vol] 252 mg/dL High 65 - 99 mg/dL [facility] Interpretation and review of laboratory results Abnormal [facility] Glucose [Mass/Vol] 145 mg/dL High 65 - 99 mg/dL [facility] Interpretation and review of laboratory results Abnormal [facility] Glucose [Mass/Vol] 155 mg/dL High 65 - 99 mg/dL [facility] Interpretation and review of laboratory results Abnormal [facility] Glucose [Mass/Vol] 155 mg/dL High 65 - 99 mg/dL [facility] Interpretation and review of laboratory results Abnormal [facility] Glucose [Mass/Vol] 143 mg/dL High 65 - 99 mg/dL [facility] Interpretation and review of laboratory results Abnormal [facility] Glucose [Mass/Vol] 123 mg/dL High 65 - 99 mg/dL [facility] Interpretation and review of laboratory results Abnormal [facility] Glucose [Mass/Vol] 132 mg/dL High 65 - 99 mg/dL [facility] Interpretation and review of laboratory results Abnormal [facility] Glucose [Mass/Vol] 202 mg/dL High 65 - 99 mg/dL [facility] Interpretation and review of laboratory results Abnormal [facility] Glucose [Mass/Vol] 318 mg/dL High 65 - 99 mg/dL [facility] Interpretation and review of laboratory results Abnormal [facility] Glucose [Mass/Vol] 365 mg/dL High 65 - 99 mg/dL [facility] Interpretation and review of laboratory results Abnormal [facility] Glucose [Mass/Vol] 453 mg/dL Critically high 65 - 99 mg/d L [facility] Interpretation and review of laboratory results Abnormal [facility] Glucose [Mass/Vol] mg/dL Critically high 65 - 99 mg/d L [facility] Interpretation and review of laboratory results Abnormal [facility] Glucose [Mass/Vol] mg/dL Critically high 65 - 99 mg/d L [facility] Interpretation and review of laboratory results Abnormal [facility] Glucose [Mass/Vol] 498 mg/dL Critically high 65 - 99 mg/d L [facility] Interpretation and review of laboratory results Abnormal [facility] Green Topon 11-27-2023 Extra Tube Hold for add-ons. [facility] Comment on above: Auto resulted. [facility] HbA1c (Bld) [Mass fraction]O rdered By: Brent Carrillo on 11-27-2023 Average glucose Estimated from glycated hemoglobin (Bld) [Mass/Vol] 169 mg/dL High 68 - 114 mg/dL [facility] Interpretation and review of laboratory results Abnormal [facility] Hemoglobin [id number] By: Damaris Carrillo on 11-27-2023 HbA1c (Bld) [Mass fraction] 7.5 % High 4.0 - 5.6 % [facility] Hepatic function 2000 panelo n 11-27-2023 Albumin [Mass/Vol] 3.4 g/dL 3.2 - 5.2 g/dL [facility] ALP [Catalytic activity/Vol] 97 U/L 40 - 150 U/L [facility] ALT [Catalytic activity/Vol] 47 U/L 14 - 65 U/L [facility] AST [Catalytic activity/Vol] 74 U/L High 0-50 U/L [facility] Bilirubin [Mass/Vol] 0.7 mg/dL 0.0 - 1 .3 mg/dL [facility] Bilirubin.conjugated [Mass/Vol] 0.2 mg/dL 0.0 - 0.4 mg/dL [facility] Protein [Mass/Vol] 6.3 g/dL 6.0 - 8.0 g/dL [facility] Influenza virus A and B RNA and SARS-CoV-2 (COVID-19) N gene panel ALICE+probe (Resp)Ordered By: Esthela Albright on 11-27-2023 FLUAV RNA ALICE+probe Ql (Unsp spec) Not detected Not Detected [facility] FLUBV RNA ALICE+probe Ql (Unsp spec) Not detected Not Detected [facility] Interpretation and review of laboratory results Abnormal [facility] SARS-CoV-2 (COVID-19) RNA ALICE+probe Ql (Resp) Detected Abnormal Not Detected [facility] Lactate [Moles/Vol]on 2023 Interpretation and review of laboratory results Abnormal [facility] Interpretation and review of laboratory results Normal [facility] Lactic Acid, Plasmaon 2023 Lactate [Moles/Vol] 2.8 mmol/L High 0.6 - 2. 0 mmol/L [facility] Lactate [Moles/Vol] 2.0 mmol/L 0.6 - 2. 0 mmol/L [facility] Legionella Antigen, Urineon 11-27-2023 Interpretation and review of laboratory results Normal [facility] L. pneumophila Ag Ql (U) Negative Neg ative for Legionella antigen [facility] Lipid 1996 panelon Cholesterol [Mass/Vol] 130 mg/dL 100 - 199 mg/dL [facility] Cholesterol in HDL [Mass/Vol] 56 mg/dL 40 - 59 mg/dL [facility] Cholesterol in LDL [Mass/Vol] 61 mg/dL 10 - 130 mg/dL [facility] Cholesterol non HDL [Mass/Vol] 74 mg/dL [facility] [facility] Cholesterol.total/Cholest santos in HDL [Mass ratio] 2.3 {ratio} ratio [facility] Triglyceride [Mass/Vol] 67 mg/dL 30 - 150 mg/dL [facility] MRSA DNA Amplified Probeon 0 11-27-2023 MRSA DNA ALICE+probe Ql (Unsp spec) Negative Not Detected, MRSA NEGATIVE [facility] MRSA DNA ALICE+probe Ql (Unsp spec)on 11-27-2023 Interpretation and review of laboratory results Normal [facility] Magnesium Levelon 11-27-2023 Magnesium [Mass/Vol] 1.9 mg/dL 1.6 - 2 .4 mg/dL [facility] Magnesium [Mass/Vol] 2.2 mg/dL 1.6 - 2 .4 mg/dL [facility] Magnesium [Mass/Vol] 2.1 mg/dL 1.6 - 2 .4 mg/dL [facility] Magnesium [Mass/Vol] 2.1 mg/dL 1.6 - 2 .4 mg/dL [facility] Magnesium [Mass/Vol] 2.2 mg/dL 1.6 - 2 .4 mg/dL [facility] Magnesium [Mass/Vol]on 11-27 Interpretation and review of laboratory results Normal [facility] Interpretation and review of laboratory results Normal [facility] Interpretation and review of laboratory results Normal [facility] Interpretation and review of laboratory results Normal [facility] Interpretation and review of laboratory results Normal [facility] NT Pro BNPon 11-27-2023 Natriuretic peptide.B prohormone N-Terminal [Mass/Vol] 57532 pg/mL High 0 - 300 pg/mL [facility] Natriuretic peptide.B prohor katja N-Terminal [Mass/Vol]on 11-27-2023 Interpretation and review of laboratory results Abnormal [facility] No Panel Informationon 11-27 [facility] Interpretation and review of laboratory results Abnormal [facility] Obtain venous blood gases an d performon 11-27-2023 [facility] POC Arterial Blood Gas Panel -Pulmon 11-27-2023 Alveolar-arterial oxygen Partial pressure difference 85.4 mm Hg [facility] Base excess Calc (Bld) [Moles/Vol] -7.1000 mmol/L Low -2.0 - 2.0 [facility] Calcium.ionized [Mass/Vol] 4.7 mg/dL 4.5 - 5.3 mg/dL [facility] Carboxyhemoglobin (BldA) [Mass fraction] 1.3 NINF [facility] Chloride [Moles/Vol] 107 mmol/L 98 - 10 8 mmol/L [facility] CO2 (Bld) [Partial pressure] 31.7 mm[Hg] Low [facility] Glucose post fast [Mass/Vol] 543 mg/dL Critically high 65 - 99 mg/dL [facility] HCO3 (Bld) [Moles/Vol] 17.5 mmol/L Low 22.0 - 26.0 mmol/L [facility] Hematocrit (BldA) [Volume fraction] 37.9 % Low 41.0 - 53.0 % [facility] Hemoglobin (Bld) [Mass/Vol] 12.4 g/dL Low 13.5 - 17.5 g/dL [facility] Inhaled oxygen concentration 30 % [facility] Interpretation and review of laboratory results Abnormal [facility] Lactate [Moles/Vol] 1.7 mmol/L 0.6 - 2. 0 mmol/L [facility] Methemoglobin (BldA) [Mass fraction] % 0.0 - 2.0 % [facility] Oxygen (Bld) [Partial pressure] 84 mm[Hg] [facility] Oxyhemoglobin (BldA) [Mass fraction] 94.5 % 94.0 - 98.0 % [facility] pH (Bld) 7.35 [pH] 7.35 - 7.45 [facility] Potassium [Moles/Vol] 4.6 mmol/L 3.5 - 5.1 mmol/L [facility] Sodium [Moles/Vol] 138 mmol/L 135 - 145 mmol/L [facility] Specimen source Nom (Unsp spec) Radial, right [facility] POC Venous Blood Gas Panel-P ulmon 11-27-2023 Base excess Calc (BldV) [Moles/Vol] -8.4000 mmol/L Low -2.0 - 2.0 [facility] Calcium.ionized [Mass/Vol] 4.4 mg/dL Low 4.5 - 5.3 mg/dL [facility] Carboxyhemoglobin (BldA) [Mass fraction] 2.9 High [facility] Chloride [Moles/Vol] 108 mmol/L 98 - 10 8 mmol/L [facility] CO2 (BldV) [Partial pressure] 26.6 mm[Hg] Low [facility] Glucose post fast [Mass/Vol] 544 mg/dL Critically high 65 - 99 mg/dL [facility] HCO3 (Bld) [Moles/Vol] 15.4 mmol/L Low 24.0 - 28.0 mmol/L [facility] Hematocrit (BldA) [Volume fraction] 36.5 % Low 41.0 - 53.0 % [facility] Hemoglobin (Bld) [Mass/Vol] 11.9 g/dL Low 13.5 - 17.5 g/dL [facility] Inhaled oxygen concentration 30 % [facility] Interpretation and review of laboratory results Abnormal [facility] Lactate [Moles/Vol] 2.5 mmol/L High 0.6 - 2. 0 mmol/L [facility] Methemoglobin (BldA) [Mass fraction] % 0.0 - 2.0 % [facility] Oxygen (BldV) [Partial pressure] 140 mm[Hg] High [facility] Oxygen saturation in Venous blood 99.4 % High 40.0 - 70.0 % [facility] Oxyhemoglobin (BldA) [Mass fraction] 96.3 % No established reference range [facility] pH (BldV) 7.37 [pH] 7.32 - 7.42 [facility] Potassium [Moles/Vol] 4.0 mmol/L 3.5 - 5.1 mmol/L [facility] Sodium [Moles/Vol] 138 mmol/L 135 - 145 mmol/L [facility] Specimen source Nom (Unsp spec) Not specified [facility] Base excess Calc (BldV) [Moles/Vol] -5.8000 mmol/L Low -2.0 - 2.0 [facility] Calcium.ionized [Mass/Vol] 4.7 mg/dL 4.5 - 5.3 mg/dL [facility] Carboxyhemoglobin (BldA) [Mass fraction] 2.9 High [facility] Chloride [Moles/Vol] 107 mmol/L 98 - 10 8 mmol/L [facility] CO2 (BldV) [Partial pressure] 34.1 mm[Hg] Low [facility] Glucose post fast [Mass/Vol] 493 mg/dL Critically high 65 - 99 mg/dL [facility] HCO3 (Bld) [Moles/Vol] 19.0 mmol/L Low 24.0 - 28.0 mmol/L [facility] Hematocrit (BldA) [Volume fraction] 35.4 % Low 41.0 - 53.0 % [facility] Hemoglobin (Bld) [Mass/Vol] 11.5 g/dL Low 13.5 - 17.5 g/dL [facility] Inhaled oxygen concentration 28 % [facility] Inhaled oxygen flow rate 2 L/min [facility] Interpretation and review of laboratory results Abnormal [facility] Lactate [Moles/Vol] 1.8 mmol/L 0.6 - 2. 0 mmol/L [facility] Methemoglobin (BldA) [Mass fraction] % 0.0 - 2.0 % [facility] Oxygen (BldV) [Partial pressure] 63 mm[Hg] High [facility] Oxygen saturation in Venous blood 91.7 % High 40.0 - 70.0 % [facility] Oxyhemoglobin (BldA) [Mass fraction] 88.7 % No established reference range [facility] pH (BldV) 7.36 [pH] 7.32 - 7.42 [facility] Potassium [Moles/Vol] 4.7 mmol/L 3.5 - 5.1 mmol/L [facility] Sodium [Moles/Vol] 138 mmol/L 135 - 145 mmol/L [facility] Specimen source Nom (Unsp spec) Not specified [facility] Phosphate [Mass/Vol]on 11-27 Interpretation and review of laboratory results Normal [facility] Interpretation and review of laboratory results Abnormal [facility] Interpretation and review of laboratory results Normal [facility] Interpretation and review of laboratory results Normal [facility] Interpretation and review of laboratory results Abnormal [facility] Phosphoruson 11-27-2023 Phosphate [Mass/Vol] 2.6 mg/dL 2.3 - 3 .7 mg/dL [facility] Phosphate [Mass/Vol] 4.1 mg/dL High 2.3 - 3 .7 mg/dL [facility] Phosphate [Mass/Vol] 3.0 mg/dL 2.3 - 3 .7 mg/dL [facility] Phosphate [Mass/Vol] 2.3 mg/dL 2.3 - 3 .7 mg/dL [facility] Phosphate [Mass/Vol] 4.1 mg/dL High 2.3 - 3 .7 mg/dL [facility] Reflex Lactic Acid, Plasmaon 11-27-2023 Interpretation and review of laboratory results Normal [facility] Lactate [Moles/Vol] 2.0 mmol/L 0.6 - 2. 0 mmol/L [facility] Interpretation and review of laboratory results Abnormal [facility] Lactate [Moles/Vol] 2.8 mmol/L High 0.6 - 2. 0 mmol/L [facility] Respiratory pathogens DNA an d RNA panel ALICE+non-probe (Nph)Ordered By: Melania Freeman on 11-27-2023 Adenovirus DNA ALICE+non-probe Ql (Nph) Not detected Not Detected [facility] B. parapertussis [id number] DNA ALICE+non-probe Ql (Nph) Not detected Not Detected [facility] B. pertussis toxin promoter region ALICE+non-probe Ql (Nph) Not detected Not Detected [facility] C. pneumoniae DNA ALICE+non-probe Ql (Nph) Not detected Not Detected [facility] FLUAV RNA ALICE+non-probe Ql (Nph) Not detected Not Detected [facility] FLUBV RNA ALICE+non-probe Ql (Nph) Not detected Not Detected [facility] HCoV 229E RNA ALICE+non-probe Ql (Nph) Not detected Not Detected [facility] HCoV HKU1 RNA ALICE+non-probe Ql (Nph) Not detected Not Detected [facility] HCoV NL63 RNA ALICE+non-probe Ql (Nph) Not detected Not Detected [facility] HCoV OC43 RNA ALICE+non-probe Ql (Nph) Not detected Not Detected [facility] hMPV RNA ALICE+non-probe Ql (Nph) Not detected Not Detected [facility] Interpretation and review of laboratory results Normal [facility] M. pneumoniae DNA ALICE+non-probe Ql (Nph) Not detected Not Detected [facility] Parainfluenza virus 1 RNA ALICE+non-probe Ql (Nph) Not detected Not Detected [facility] Parainfluenza virus 2 RNA ALICE+non-probe Ql (Nph) Not detected Not Detect[facility] Parainfluenza virus 3 RNA ALICE+non-probe Ql (Nph) Not detected Not Detected [facility] Parainfluenza virus 4 RNA ALICE+non-probe Ql (Nph) Not detected Not Detected [facility] Rhinovirus+Enterovirus RNA ALICE+non-probe Ql (Nph) Not detected Not Detected [facility] RSV RNA ALICE+non-probe Ql (Nph) Not detected Not Detected [facility] SARS-CoV-2 (COVID-19) RNA ALICE+non-probe Ql (Nph) Not detected Not Detected [facility] S. pneumoniae Urine AntigenO rdered By: Maxine Hill on 11-27-2023 Interpretation and review of laboratory results Normal [facility] S. pneumoniae Ag Ql (U) Negative Pres umptive Negative for Pneumococcal pneumoniae [facility] TSH DL <= 0.005 mIU/L Qnon 0 11-27-2023 Interpretation and review of laboratory results Normal [facility] TSH Qn 0.35 m[IU]/L [facility] Tropinin I.cardiac panel Hig h sensitivity methodon 11-27-2023 Interpretation and review of laboratory results Abnormal [facility] Less than 99th percentile of normal [...] at [facility] than at other [facility]. Direct result comparisons should only be made within the same method. [facility] Troponin I, High Sensitivity on 11-27-2023 Tropinin I.cardiac panel High sensitivity method 6445 ng/L Critically high 0 - 20 ng/L [facility] Comment on above: Previous result veri fied on 11/26/2023 2158 on specimen/case [id number] called with component [facility] for procedure Troponin I, High Sensitivity with value 2,361 ng/L. Troponin x 2 (Now and Repeat in 3 hours)Ordered By: Stephanie Carlton on 11-27-2023 Delta % Troponin I -6 % <20% of Baseline Troponin [facility] Troponin I Delta Change Probable non-acute cardiac injury or late presentation of acute injury. [facility] Interpretation and review of laboratory results Abnormal [facility] Troponin I 9349 ng/L Critically high NINF - 59 ng/L [facility] Troponin x 2 (Now and Repeat in 3 hours)on 11-27-2023 Interpretation and review of laboratory results Abnormal [facility] Troponin I 9973 ng/L Critically high NINF - 59 ng/L [facility] Troponin I Interpretation Possible acute cardiac injury. [facility] XR Chest PA and Abdomen APon 11-27-2023 GE RIS GE RIS [facility] Radiology Study observation (narrative) [facility] XR Chest PA and Abdomen APOr dered By: Malika Painting on 11-27-2023 [facility] Work Phone: aPTT Coag (Bld) [Time]Ordere d By: Becky Mercado on 11-27-2023 Interpretation and review of laboratory results Abnormal [facility] aPTT Coag (Bld) [Time]Ordere d By: Anjali Hartmann on 11-27-2023 Interpretation and review of laboratory results Abnormal [facility] CBC W Auto Differential pane l (Bld)on 11-26-2023 Basophils (Bld) [#/Vol] 0.05 10*3/uL [facility] Basophils/100 WBC (Bld) 0.2 % 0.0 - 2.0 % [facility] Eosinophils (Bld) [#/Vol] 0.00 10*3/uL [facility] Eosinophils/100 WBC (Bld) 0.0 % 0.0 - 6.0 % [facility] Erythrocyte distribution width (RBC) [Ratio] 13.8 % 11.5 - 14.5 % [facility] Hematocrit (Bld) [Volume fraction] 38.0 % Low 41.0 - 52.0 % [facility] Hemoglobin (Bld) [Mass/Vol] 12.2 g/dL Low 13.5 - 17.5 g/dL [facility] Immature granulocytes (Bld) [#/Vol] 0.12 10*3/uL [facility] Immature granulocytes/100 WBC (Bld) 0.6 % 0.0 - 0.9 % [facility] Comment on above: Immature Granulocyte Count (IG) includes promyelocytes, myelocytes and metamyelocytes but does not include bands. Percent differential counts (%) should be interpreted in the context of the absolute cell counts (cells/UL). Interpretation and review of laboratory results Abnormal [facility] Lymphocytes (Bld) [#/Vol] 2.01 10*3/uL [facility] Lymphocytes/100 WBC (Bld) 9.8 % 13.0 - 44. 0 % [facility] MCH (RBC) [Entitic mass] 30.5 pg 26. 0 - 34.0 pg [facility] MCHC (RBC) [Mass/Vol] 32.1 g/dL 32.0 - 36.0 g/dL [facility] MCV (RBC) [Entitic vol] 95 fL 80 - 100 fL [facility] Monocytes (Bld) [#/Vol] 0.75 10*3/uL [facility] Monocytes/100 WBC (Bld) 3.7 % 2.0 - 10.0 % [facility] Neutrophils (Bld) [#/Vol] 17.49 10*3/uL High [facility] Comment on above: Percent differential counts (%) should be interpreted in the context of the absolute cell counts (cells/uL). Neutrophils/100 WBC (Bld) 85.7 % 40.0 - 80. 0 % [facility] Nucleated RBC/100 WBC (Bld) [Ratio] 0.0 % [facility] Platelets (Bld) [#/Vol] 281 10*3/uL [facility] RBC (Bld) [#/Vol] 4.00 10*6/uL Low [facility] WBC (Bld) [#/Vol] 20.4 10*3/uL [facility] metabolic 2000 panelon 11-26-2023 Albumin BCP dye [Mass/Vol] 4.2 g/dL 3.4 - 5.0 g/dL [facility] ALP [Catalytic activity/Vol] 101 U/L 33 - 136 U/L [facility] ALT With P-5'-P [Catalytic activity/Vol] 38 U/L 10 - 52 U/L [facility] Comment on above: Patients treated wit h Sulfasalazine may generate falsely decreased results for ALT. Anion gap [Moles/Vol] 17 mmol/L 10 - 2 0 mmol/L [facility] AST With P-5'-P [Catalytic activity/Vol] 53 U/L High 9 - 39 U/L [facility] Bilirubin [Mass/Vol] 0.6 mg/dL 0.0 - 1 .2 mg/dL [facility] Calcium [Mass/Vol] 9.2 mg/dL 8.6 - 10. 3 mg/dL [facility] Chloride [Moles/Vol] 106 mmol/L 98 - 10 7 mmol/L [facility] CO2 [Moles/Vol] 17 mmol/L Low 21 - 32 mmol/L [facility] Creatinine [Mass/Vol] 1.96 mg/dL High 0.50 - 1.30 mg/dL [facility] GFR/1.73 sq M.predicted among non-blacks MDRD (S/P/Bld) [Vol rate/Area] 34 mL/min/{1.73_m2} Low - [facility] Comment on above: Calculations of albin mated GFR are performed using the 2020 CKD-EPI Study Refit equation without the race variable for the IDMS-Traceable creatinine methods. https://jasn.asnjournals.org/content//ASN.20 31152236 Glucose [Mass/Vol] 492 mg/dL Critically high 74 - 99 mg/d L [facility] Comment on above: Confirmed by repeat analysis Interpretation and review of laboratory results Abnormal [facility] Potassium [Moles/Vol] 4.5 mmol/L 3.5 - 5.3 mmol/L [facility] Protein [Mass/Vol] 6.7 g/dL 6.4 - 8.2 g/dL [facility] Sodium [Moles/Vol] 135 mmol/L Low 136 - 145 mmol/L [facility] Urea nitrogen [Mass/Vol] 35 mg/dL High 6 - 23 mg/d L [facility] Critical Careon 11-26-2023 Ger Bansal DO [...] discussed with: accepting provider at another facility [facility] Work Phone: [facility] Work Phone: Lactateon 11-26-2023 Lactate [Moles/Vol] 3.2 mmol/L High 0.4 - 2. 0 mmol/L [facility] Lactate [Moles/Vol] 3.8 mmol/L High 0.4 - 2. 0 mmol/L [facility] Lactate [Moles/Vol]on 2023 Interpretation and review of laboratory results Abnormal [facility] Venipuncture immediately after or during the administration of Metamizole may lead to falsely low results. Testing should be performed immediately prior to Metamizole dosing. [facility] Interpretation and review of laboratory results Abnormal [facility] Venipuncture immediately after or during the administration of Metamizole may lead to falsely low results. Testing should be performed immediately prior to Metamizole dosing. [facility] MRSA DNA ALICE+probe Ql (Nose) on 11-26-2023 Interpretation and review of laboratory results Normal [facility] MRSA DNA ALICE+probe Ql (Unsp spec) Not detected Not Detected [facility] This assay is an FDA-approved in [...] patients less than two years of age. [facility] Magnesiumon 11-26-2023 Magnesium [Mass/Vol] 2.20 mg/dL 1.60 - 2.40 mg/dL [facility] Magnesium [Mass/Vol]on 11-26 Interpretation and review of laboratory results Normal [facility] Natriuretic peptide B [Mass/ Vol]on 11-26-2023 Interpretation and review of laboratory results Abnormal [facility] Natriuretic peptide B (Bld) [Mass/Vol] 902 pg/mL High 0 - 99 pg/mL [facility] <100 pg/mL - Heart failure unlikely 100-299 pg/mL - Intermediate probability of acute heart failure exacerbation. Correlate with clinical context and patient history. >=300 pg/mL - Heart Failure likely. Correlate with clinical context and patient history. BNP testing is performed using different testing methodology at [facility] than at other [facility]. Direct result comparisons should only be made within the same method. [facility] No Panel Informationon 11-26 [facility] Interpretation and review of laboratory results Normal [facility] PT Coag (PPP) [Time]on 11-26 INR Coag (PPP) [Relative time] 1.1 {INR} 0.9 - 1.1 [facility] Protime-INRon 11-26-2023 PT Coag (PPP) [Time] 12.3 s [facility] Tropinin I.cardiac panel Hig h sensitivity methodon 11-26-2023 Interpretation and review of laboratory results Abnormal [facility] Less than 99th percentile of normal [...] at [facility] than at other [facility]. Direct result comparisons should only be made within the same method. [facility] Interpretation and review of laboratory results Abnormal [facility] Less than 99th percentile of normal [...] at [facility] than at other [facility]. Direct result comparisons should only be made within the same method. [facility] Troponin I, High Sensitivity on 11-26-2023 Tropinin I.cardiac panel High sensitivity method 3473 ng/L Critically high 0 - 20 ng/L [facility] Comment on above: Previous result veri fied on 11/26/2023 2158 on specimen/case [id number] called with component [facility] for procedure Troponin I, High Sensitivity with value 2,361 ng/L. Tropinin I.cardiac panel High sensitivity method 2361 ng/L Critically high 0 - 20 ng/L [facility] XR Chest Single viewon 11-26 Pulmonary vascular congestive change and edema and small bilateral pleural effusions. There is asymmetric opacity in the right lower lung concerning for superimposed pneumonia. 10 mm nodular opacity at the left lung base; follow-up dedicated CT chest is recommended to exclude underlying pulmonary nodule. MACRO: None Signed by: Ghassan Tovar 11/26/2023 10:02 PM Dictation workstation: [id number] Interpreted By: Ghassan Tovar, STUDY: XR CHEST 1 VIEW; 11/26/2023 9:31 pm INDICATION: Signs/Symptoms:dyspn ea. COMPARISON: 10/13/2023 ACCESSION NUMBER(S): [id number] ORDERING CLINICIAN: GER BANSAL FINDINGS: The cardiac silhouette is stable in size. There is pulmonary vascular congestive change and edema. Small bilateral pleural effusions. There is 10 mm nodular opacity at the left lung base. No pneumothorax [facility] Ghassan Tovar MD - 11/26/2023 Interpreted By: Ghassan Tovar, STUDY: XR CHEST 1 VIEW; 11/26/2023 9:31 pm INDICATION: Signs/Symptoms:dyspn ea. COMPARISON: 10/13/2023 ACCESSION NUMBER(S): [id number] ORDERING CLINICIAN: GER BANSAL FINDINGS: The cardiac [...] Ghassan Tovar 11/26/2023 10:02 PM Dictation workstation: [id number] [facility] Work Phone: Radiology Study observation (narrative) [facility] Work Phone: XR Chest Single viewOrdered By: Ghassan Tovar on 11-26-2023 [facility] Work Phone: aPTTon 11-26-2023 aPTT Coag (PPP) [Time] 38 s Un [facility] aPTT Coag (PPP) [Time]on The APTT is no longer used for monitoring Unfractionated Heparin Therapy. For monitoring Heparin Therapy, use the Heparin Assay. [facility] Absolute lymphocyte countOrd ered By: Ryley Jeter on 11-25-2023 Lymphocytes Auto (Unsp spec) [#/Vol] 1.79 10*3/uL 0.83-4.51 [facility] Automated lymphocyte count a s percentage of total leukocytesOrdered By: Ryley Gordilloke on 11-25-2023 Lymphocytes/100 WBC Auto (Unsp spec) 19.7 % 19-41 [facility] Basophil percentageOrdered B y: Ryley Jeter on 11-25-2023 Basophils/100 WBC (Bld) 1.0 % 0-1 [facility] Bilirubin [Mass/Vol] 0.50 mg/dL 0.20-1.00 [facility] Comment on above: For patients on eltr ombopag therapy, use of Dimension [place] TBIL is not recommended. Chloride [Moles/Vol] 113 mmol/L 98-107 [facility] Eosinophils/100 WBC (Bld) 2.3 % 0-5 [facility] Glucose [Mass/Vol] 130 mg/dL 74-106 [facility] Comment on above: Fasting Glucose resu lt greater than or equal to 126 mg/dL suggests DIABETES MELLITUS per A.D.A. criteria. Hemoglobin (Bld) [Mass/Vol] 12.2 g/dL 13.0-16.5 [facility] Monocytes/100 WBC (Bld) 7.5 % 0-10 [facility] Neutrophils (Bld) [#/Vol] 6.3 10*3/uL 2.0-7.7 [facility] Neutrophils/100 WBC (Bld) 69.2 % 47-70 [facility] Potassium [Moles/Vol] 4.3 mmol/L 3.5-5.1 [facility] Protein [Mass/Vol] 7.1 g/dL 6.4-8.2 [facility] Sodium [Moles/Vol] 142 mmol/L 136-145 [facility] WBC (Bld) [#/Vol] 9.1 10*3/uL 4.4-11.0 [facility] Determination of erythrocyte mean corpuscular volume (MCV)Ordered By: Ryley Jeter on 11-25-2023 MCV (RBC) [Entitic vol] 93.5 fL 80-94 [facility] Erythrocyte distribution wid th ratioOrdered By: Ryley Steffany on 11-25-2023 Erythrocyte distribution width (RBC) [Ratio] 14.1 % 11.6-14.6 [facility] Erythrocyte distribution wid th standard deviationOrdered By: Ryley Steffany on 11-25-2023 Erythrocyte distribution width (RBC) [Entitic vol] 47.9 fL 35.1-43.9 [facility] Hematocrit Auto (Bld) [Volum e fraction]Ordered By: Ryley Jeter on 11-25-2023 Hematocrit (Bld) [Volume fraction] 37.7 % 40-54 [facility] Immature granulocytes/100 WB C Auto (Bld)Ordered By: Ryley Jeter on 11-25-2023 Immature granulocytes/100 WBC (Bld) 0.300 % 0.0-0.9 [facility] Comment on above: IG% - Immature Granu locytes (promyelocytes, myelocytes and metamyelocytes) > 1% indicates that a LEFT SHIFT is Present. Laboratory - Chemistry and C hemistry - challengeOrdered By: Ryley Jeter on 11-25-2023 Albumin/Globulin [Mass ratio] 1.0 {ratio} 0.9-2.4 [facility] ALP [Catalytic activity/Vol] 98 U/L 45-117 [facility] ALT [Catalytic activity/Vol] 25 U/L 16-61 [facility] CO2 [Moles/Vol] 25.0 mmol/L 21.0-32.0 [facility] Globulin (S) [Mass/Vol] 3.5 g/dL 2.2-4.2 [facility] Urea nitrogen/Creatinine [Mass ratio] 13.5 mg/mg 10-20 [facility] Laboratory - Hematology and Cell countsOrdered By: Ryley Jeter on 11-25-2023 MCH (RBC) [Entitic mass] 30.3 pg 27.0-32.0 [facility] MCHC (RBC) [Mass/Vol] 32.4 g/dL 32-36 [facility] Nucleated RBC/100 WBC (Bld) [Ratio] 0 % 0-5 [facility] Platelets (Bld) [#/Vol] 239 10*3/uL 150-450 [facility] No Panel InformationOrdered By: Ryley Jeter on 11-25-2023 Estimated GFR (MDRD) Amer 55 mL/min >60 [facility] Comment on above: GFR Calc Estimated GFR (MDRD) Non-Af Amer 46 mL/min >60 [facility] Comment on above: Non- GFR Calc Platelet mean volume Kodi-Ec ker (Bld) [Entitic vol]Ordered By: Ryley Jeter on 11-25-2023 Platelet mean volume (Bld) [Entitic vol] 11.3 fL 6.2-12.0 [facility] RBC Auto (Bld) [#/Vol]Ordere d By: Ryley Jeter on 11-25-2023 RBC (Bld) [#/Vol] 4.03 10*6/uL 4.6-6.2 [facility] Serum or plasma calcium nikkie urement (mass/volume)Ordered By: Ryley Jeter on 11-25-2023 Calcium [Mass/Vol] 9.5 mg/dL 8.5-10.1 [facility] Serum or plasma creatinine m easurement (mass/volume)Ordered By: Ryley Jeter on 11-25-2023 Creatinine [Mass/Vol] 1.56 mg/dL 0.70-1.30 [facility] Comment on above: The validity of the calculated GFR & GFRAA in patients over 70 years has not been determined. Clinical correlation is essential. Serum or plasma thyroid stim ulating hormone (TSH) measurement (units/volume)Ordered By: Ryley Jeter on 11-25-2023 TSH Qn 0.80 uIU/mL 0.358-3.74 [facility] Serum or plasma urea nitroge n measurement (mass/volume)Ordered By: Ryley Jeter on 11-25-2023 Urea nitrogen [Mass/Vol] 21 mg/dL 7-18 [facility] Thin prep Papanicolaou smear with manual screeningOrdered By: Ryley Jeter on 11-25-2023 Thin prep Papanicolaou smear with manual screening 3.6 g/dL 3.2-5.0 [facility] Thin prep Papanicolaou smear with manual screening 23 U/L 15-37 [facility] Thin prep Papanicolaou smear with manual screening 4 5-15 [facility] Basophil percentageOrdered B y: Jana Ferguson on 10-22-2023 Chloride [Moles/Vol] 111 mmol/L 98-107 [facility] Glucose [Mass/Vol] 120 mg/dL 74-106 [facility] Comment on above: Fasting Glucose resu lt from 100 to 125 mg/dL suggests IMPAIRED HOMEOSTASIS per A.D.A. criteria. Potassium [Moles/Vol] 4.7 mmol/L 3.5-5.1 [facility] Sodium [Moles/Vol] 140 mmol/L 136-145 [facility] WBC (Bld) [#/Vol] 9.1 10*3/uL 4.4-11.0 [facility] Blood erythrocytes count (nu mber/volume)Ordered By: Jana Ferguson on 10-22-2023 RBC (Bld) [#/Vol] 4.16 10*6/uL 4.6-6.2 [facility] Blood hemoglobin measurement (mass/volume)Ordered By: Jana Ferguson on 10-22-2023 Hemoglobin (Bld) [Mass/Vol] 12.3 g/dL 13.0-16.5 [facility] Blood platelet mean volumeOr dered By: Jana Ferguson on 10-22-2023 Platelet mean volume (Bld) [Entitic vol] 11.6 fL 6.2-12.0 [facility] Determination of erythrocyte mean corpuscular volume (MCV)Ordered By: Jana Ferguson on 10-22-2023 MCV (RBC) [Entitic vol] 93.0 fL 80-94 [facility] Hematocrit Auto (Bld) [Volum e fraction]Ordered By: Jana Ferguson on 10-22-2023 Hematocrit (Bld) [Volume fraction] 38.7 % 40-54 [facility] Laboratory - Chemistry and C hemistry - challengeOrdered By: Jana Ferguson on 10-22-2023 CO2 [Moles/Vol] 27.0 mmol/L 21.0-32.0 [facility] Urea nitrogen/Creatinine [Mass ratio] 20.9 mg/mg 10-20 [facility] Laboratory - Hematology and Cell countsOrdered By: Jana Ferguson on 10-22-2023 Erythrocyte distribution width (RBC) [Entitic vol] 44.3 fL 35.1-43.9 [facility] Erythrocyte distribution width (RBC) [Ratio] 13.0 % 11.6-14.6 [facility] MCH (RBC) [Entitic mass] 29.6 pg 27.0-32.0 [facility] MCHC Auto (RBC) [Mass/Vol]Or dered By: Jana Ferguson on 10-22-2023 MCHC (RBC) [Mass/Vol] 31.8 g/dL 32- [facility] No Panel InformationOrdered By: Jana Ferguson on 10-22-2023 Estimated GFR (MDRD) Amer 40 mL/min >60 [facility] Comment on above: GFR Calc Estimated GFR (MDRD) Non-Af Amer 33 mL/min >60 [facility] Comment on above: Non- GFR Calc Platelets bldOrdered By: Jadyn Ferguson on 10-22-2023 Platelets (Bld) [#/Vol] 304 10*3/uL 150-450 [facility] Serum or plasma calcium nikkie urement (mass/volume)Ordered By: Jana Ferguson on 10-22-2023 Calcium [Mass/Vol] 9.1 mg/dL 8.5-10.1 [facility] Serum or plasma creatinine m easurement (mass/volume)Ordered By: Jana Ferguson on 10-22-2023 Creatinine [Mass/Vol] 2.06 mg/dL 0.70-1.30 [facility] Comment on above: The validity of the calculated GFR & GFRAA in patients over 70 years has not been determined. Clinical correlation is essential. Serum or plasma urea nitroge n measurement (mass/volume)Ordered By: Jana Ferguson on 10-22-2023 Urea nitrogen [Mass/Vol] 43 mg/dL 7-18 [facility] Thin prep Papanicolaou smear with manual screeningOrdered By: Jana Ferguson on 10-22-2023 Thin prep Papanicolaou smear with manual screening 2 5-15 [facility] Basic metabolic 2000 panelon 10-13-2023 Anion gap [Moles/Vol] 17 mmol/L 10 - 2 0 mmol/L [facility] Calcium [Mass/Vol] 8.3 mg/dL Low 8.6 - 10. 3 mg/dL [facility] Chloride [Moles/Vol] 102 mmol/L 98 - 10 7 mmol/L [facility] CO2 [Moles/Vol] 22 mmol/L 21 - 32 mmol/L [facility] Creatinine [Mass/Vol] 2.30 mg/dL High 0.50 - 1.30 mg/dL [facility] GFR/1.73 sq M.predicted MDRD (S/P/Bld) [Vol rate/Area] 28 mL/min/{1.73_m2} Low - PINF [facility] Comment on above: Calculations of albin mated GFR are performed using the 2020 CKD-EPI Study Refit equation without the race variable for the IDMS-Traceable creatinine methods. https://jasn.asnjournals.org/content//ASN.20 04926059 Glucose [Mass/Vol] 327 mg/dL High 74 - 99 mg/dL [facility] Interpretation and review of laboratory results Abnormal [facility] Potassium [Moles/Vol] 4.9 mmol/L 3.5 - 5.3 mmol/L [facility] Sodium [Moles/Vol] 136 mmol/L 136 - 145 mmol/L [facility] Urea nitrogen [Mass/Vol] 57 mg/dL High 6 - 23 mg/d L [facility] CBC W Auto Differential pane l (Bld)on 10-13-2023 Basophils (Bld) [#/Vol] 0.02 10*3/uL [facility] Basophils/100 WBC (Bld) 0.1 % 0.0 - 2.0 % [facility] Eosinophils (Bld) [#/Vol] 0.00 10*3/uL [facility] Eosinophils/100 WBC (Bld) 0.0 % 0.0 - 6.0 % [facility] Erythrocyte distribution width (RBC) [Ratio] 13.2 % 11.5 - 14.5 % [facility] Hematocrit (Bld) [Volume fraction] 36.4 % Low 41.0 - 52.0 % [facility] Hemoglobin (Bld) [Mass/Vol] 12.4 g/dL Low 13.5 - 17.5 g/dL [facility] Immature granulocytes (Bld) [#/Vol] 0.11 10*3/uL [facility] Immature granulocytes/100 WBC (Bld) 0.6 % 0.0 - 0.9 % [facility] Comment on above: Immature Granulocyte Count (IG) includes promyelocytes, myelocytes and metamyelocytes but does not include bands. Percent differential counts (%) should be interpreted in the context of the absolute cell counts (cells/UL). Interpretation and review of laboratory results Abnormal [facility] Lymphocytes (Bld) [#/Vol] 1.30 10*3/uL [facility] Lymphocytes/100 WBC (Bld) 7.3 % 13.0 - 44. 0 % [facility] MCH (RBC) [Entitic mass] 31.0 pg 26. 0 - 34.0 pg [facility] MCHC (RBC) [Mass/Vol] 34.1 g/dL 32.0 - 36.0 g/dL [facility] MCV (RBC) [Entitic vol] 91 fL 80 - 100 fL [facility] Monocytes (Bld) [#/Vol] 1.15 10*3/uL High [facility] Monocytes/100 WBC (Bld) 6.5 % 2.0 - 10.0 % [facility] Neutrophils (Bld) [#/Vol] 15.21 10*3/uL High [facility] Comment on above: Percent differential counts (%) should be interpreted in the context of the absolute cell counts (cells/uL). Neutrophils/100 WBC (Bld) 85.5 % 40.0 - 80. 0 % [facility] Nucleated RBC/100 WBC (Bld) [Ratio] 0.0 % [facility] Platelets (Bld) [#/Vol] 153 10*3/uL [facility] RBC (Bld) [#/Vol] 4.00 10*6/uL [facility] WBC (Bld) [#/Vol] 17.8 10*3/uL [facility] Glucose Test strip manual (B ld) [Mass/Vol]on 10-13-2023 Glucose [Mass/Vol] 329 mg/dL High 74 - 99 mg/dL [facility] Interpretation and review of laboratory results Abnormal [facility] Glucose [Mass/Vol] 304 mg/dL High 74 - 99 mg/dL [facility] Interpretation and review of laboratory results Abnormal [facility] Glucose [Mass/Vol] 305 mg/dL High 74 - 99 mg/dL [facility] Interpretation and review of laboratory results Abnormal [facility] XR Chest Single viewon 10-13 Right upper lobe airspace consolidation, concerning for pneumonia. Clinical correlation and continued follow-up until clearing is recommended. MACRO: None. Signed by: Jaret Walker 10/13/2023 11:21 AM Dictation workstation: [id number] Interpreted By: Jaret Walker, STUDY: XR CHEST 1 VIEW 10/13/2023 8:31 am INDICATION: Signs/Symptoms:Acute dyspnea COMPARISON: 10/11/2023 ACCESSION NUMBER(S): [id number] ORDERING CLINICIAN: VERA RIVERA TECHNIQUE: A single [...] INDICATION: Signs/Symptoms:Acute dyspnea COMPARISON: 10/11/2023 ACCESSION NUMBER(S): [id number] ORDERING CLINICIAN: VERA RIVERA TECHNIQUE: A single [...] Jaret Walker 10/13/2023 11:21 AM Dictation workstation: [id number] [facility] Work Phone: Radiology Study observation (narrative) [facility] Work Phone: XR Chest Single viewOrdered By: Jaret Walker on 10-13-2023 [facility] Work Phone: Basic metabolic 2000 panelon 10-12-2023 Anion gap [Moles/Vol] 13 mmol/L 10 - 2 0 mmol/L [facility] Calcium [Mass/Vol] 8.2 mg/dL Low 8.6 - 10. 3 mg/dL [facility] Chloride [Moles/Vol] 103 mmol/L 98 - 10 7 mmol/L [facility] CO2 [Moles/Vol] 23 mmol/L 21 - 32 mmol/L [facility] Creatinine [Mass/Vol] 2.11 mg/dL High 0.50 - 1.30 mg/dL [facility] GFR/1.73 sq M.predicted MDRD (S/P/Bld) [Vol rate/Area] 31 mL/min/{1.73_m2} Low - PINF [facility] Comment on above: Calculations of albin mated GFR are performed using the 2020 CKD-EPI Study Refit equation without the race variable for the IDMS-Traceable creatinine methods. https://jasn.asnjournals.org/content/22/ASN.20 90342971 Glucose [Mass/Vol] 214 mg/dL High 74 - 99 mg/dL [facility] Interpretation and review of laboratory results Abnormal [facility] Potassium [Moles/Vol] 4.4 mmol/L 3.5 - 5.3 mmol/L [facility] Sodium [Moles/Vol] 135 mmol/L Low 136 - 145 mmol/L [facility] Urea nitrogen [Mass/Vol] 44 mg/dL High 6 - 23 mg/d L [facility] CBC W Auto Differential pane l (Bld)on 10-12-2023 Basophils (Bld) [#/Vol] 0.03 10*3/uL [facility] Basophils/100 WBC (Bld) 0.1 % 0.0 - 2.0 % [facility] Eosinophils (Bld) [#/Vol] 0.00 10*3/uL [facility] Eosinophils/100 WBC (Bld) 0.0 % 0.0 - 6.0 % [facility] Erythrocyte distribution width (RBC) [Ratio] 13.0 % 11.5 - 14.5 % [facility] Hematocrit (Bld) [Volume fraction] 34.5 % Low 41.0 - 52.0 % [facility] Hemoglobin (Bld) [Mass/Vol] 11.8 g/dL Low 13.5 - 17.5 g/dL [facility] Immature granulocytes (Bld) [#/Vol] 0.09 10*3/[facility] Immature granulocytes/100 WBC (Bld) 0.4 % 0.0 - 0.9 % [facility] Comment on above: Immature Granulocyte Count (IG) includes promyelocytes, myelocytes and metamyelocytes but does not include bands. Percent differential counts (%) should be interpreted in the context of the absolute cell counts (cells/UL). Interpretation and review of laboratory results Abnormal [facility] Lymphocytes (Bld) [#/Vol] 1.79 10*3/uL [facility] Lymphocytes/100 WBC (Bld) 8.6 % 13.0 - 44. 0 % [facility] MCH (RBC) [Entitic mass] 30.8 pg 26. 0 - 34.0 pg [facility] MCHC (RBC) [Mass/Vol] 34.2 g/dL 32.0 - 36.0 g/dL [facility] MCV (RBC) [Entitic vol] 90 fL 80 - 100 fL [facility] Monocytes (Bld) [#/Vol] 1.55 10*3/uL High [facility] Monocytes/100 WBC (Bld) 7.5 % 2.0 - 10.0 % [facility] Neutrophils (Bld) [#/Vol] 17.32 10*3/uL [facility] Comment on above: Percent differential counts (%) should be interpreted in the context of the absolute cell counts (cells/uL). Neutrophils/100 WBC (Bld) 83.4 % 40.0 - 80. 0 % [facility] Nucleated RBC/100 WBC (Bld) [Ratio] 0.0 % [facility] Platelets (Bld) [#/Vol] 152 10*3/uL [facility] RBC (Bld) [#/Vol] 3.83 10*6/uL Low [facility] WBC (Bld) [#/Vol] 20.8 10*3/uL [facility] Glucose Test strip manual (B ld) [Mass/Vol]on 10-12-2023 Glucose [Mass/Vol] 240 mg/dL High 74 - 99 mg/dL [facility] Interpretation and review of laboratory results Abnormal [facility] Glucose [Mass/Vol] 166 mg/dL High 74 - 99 mg/dL [facility] Interpretation and review of laboratory results Abnormal [facility] Glucose [Mass/Vol] 186 mg/dL High 74 - 99 mg/dL [facility] Interpretation and review of laboratory results Abnormal [facility] Glucose [Mass/Vol] 218 mg/dL High 74 - 99 mg/dL [facility] Interpretation and review of laboratory results Abnormal [facility] Glucose [Mass/Vol] 127 mg/dL High 74 - 99 mg/dL [facility] Interpretation and review of laboratory results Abnormal [facility] No Panel Informationon 10-12 Extra Tube Hold for add-ons. [facility] Comment on above: Auto resulted. [facility] CBC W Auto Differential pane l (Bld)on 10-11-2023 Basophils (Bld) [#/Vol] 0.07 10*3/uL [facility] Basophils/100 WBC (Bld) 0.7 % 0.0 - 2.0 % [facility] Eosinophils (Bld) [#/Vol] 0.09 10*3/uL [facility] Eosinophils/100 WBC (Bld) 0.9 % 0.0 - 6.0 % [facility] Erythrocyte distribution width (RBC) [Ratio] 13.0 % 11.5 - 14.5 % [facility] Hematocrit (Bld) [Volume fraction] 36.7 % Low 41.0 - 52.0 % [facility] Hemoglobin (Bld) [Mass/Vol] 12.0 g/dL Low 13.5 - 17.5 g/dL [facility] Immature granulocytes (Bld) [#/Vol] 0.03 10*3/uL [facility] Immature granulocytes/100 WBC (Bld) 0.3 % 0.0 - 0.9 % [facility] Comment on above: Immature Granulocyte Count (IG) includes promyelocytes, myelocytes and metamyelocytes but does not include bands. Percent differential counts (%) should be interpreted in the context of the absolute cell counts (cells/UL). Interpretation and review of laboratory results Abnormal [facility] Lymphocytes (Bld) [#/Vol] 1.34 10*3/uL [facility] Lymphocytes/100 WBC (Bld) 12.9 % 13.0 - 44. 0 % [facility] MCH (RBC) [Entitic mass] 30.4 pg 26. 0 - 34.0 pg [facility] MCHC (RBC) [Mass/Vol] 32.7 g/dL 32.0 - 36.0 g/dL [facility] MCV (RBC) [Entitic vol] 93 fL 80 - 100 fL [facility] Monocytes (Bld) [#/Vol] 1.25 10*3/uL High [facility] Monocytes/100 WBC (Bld) 12.0 % 2.0 - 10.0 % [facility] Neutrophils (Bld) [#/Vol] 7.64 10*3/uL High [facility] Comment on above: Percent differential counts (%) should be interpreted in the context of the absolute cell counts (cells/uL). Neutrophils/100 WBC (Bld) 73.2 % 40.0 - 80. 0 % [facility] Nucleated RBC/100 WBC (Bld) [Ratio] 0.0 % [facility] Platelets (Bld) [#/Vol] 158 10*3/uL [facility] RBC (Bld) [#/Vol] 3.95 10*6/uL Low [facility] WBC (Bld) [#/Vol] 10.4 10*3/uL [facility] Comprehensive metabolic 2000 panelon 10-11-2023 Albumin BCP dye [Mass/Vol] 3.8 g/dL 3.4 - 5.0 g/dL [facility] ALP [Catalytic activity/Vol] 83 U/L 33 - 136 U/L [facility] ALT With P-5'-P [Catalytic activity/Vol] 13 U/L 10 - 52 U/L [facility] Comment on above: Patients treated wit h Sulfasalazine may generate falsely decreased results for ALT. Anion gap [Moles/Vol] 15 mmol/L 10 - 2 0 mmol/L [facility] AST With P-5'-P [Catalytic activity/Vol] 18 U/L 9 - 39 U/L [facility] Bilirubin [Mass/Vol] 0.4 mg/dL 0.0 - 1 .2 mg/dL [facility] Calcium [Mass/Vol] 8.5 mg/dL Low 8.6 - 10. 3 mg/dL [facility] Chloride [Moles/Vol] 103 mmol/L 98 - 10 7 mmol/L [facility] CO2 [Moles/Vol] 22 mmol/L 21 - 32 mmol/L [facility] Creatinine [Mass/Vol] 1.83 mg/dL High 0.50 - 1.30 mg/dL [facility] GFR/1.73 sq M.predicted MDRD (S/P/Bld) [Vol rate/Area] 37 mL/min/{1.73_m2} Low - PINF [facility] Comment on above: Calculations of albin mated GFR are performed using the 2020 CKD-EPI Study Refit equation without the race variable for the IDMS-Traceable creatinine methods. https://jasn.asnjournals.org/content//ASN.20 37796708 Glucose [Mass/Vol] 344 mg/dL High 74 - 99 mg/dL [facility] Interpretation and review of laboratory results Abnormal [facility] Potassium [Moles/Vol] 4.4 mmol/L 3.5 - 5.3 mmol/L [facility] Protein [Mass/Vol] 6.3 g/dL Low 6.4 - 8.2 g/dL [facility] Sodium [Moles/Vol] 136 mmol/L 136 - 145 mmol/L [facility] Urea nitrogen [Mass/Vol] 30 mg/dL High 6 - 23 mg/d L [facility] Critical Careon 10-11-2023 Aury Rouse DO [...] specialty: no Care discussed with: admitting provider [facility] Work Phone: [facility] Work Phone: D-Dimer, VTE Exclusionon Fibrin D-dimer FEU (PPP) [Mass/Vol] 1869 High NINF [facility] ECG 12-LEADon 10-11-2023 ECG 12-LEAD Ventricular Rate 113 Atrial Rate 113 P-R Interval 148 QRS Duration 82 Q-T Interval 332 QTC Calculation(Bazett) 455 P Stephenson 67 R Stephenson 39 T Stephenson 81 QRS Count 18 Q Onset 220 P Onset 146 P Offset 189 T Offset 386 QTC Fredericia 410 Diagnosis Sinus tachycardia 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 FLUAV and FLUBV RNA ALICE+prob e Nom (Unsp spec)on 10-11-2023 FLUAV RNA ALICE+probe Ql (Resp) Not detected Not Detected [facility] FLUBV RNA ALICE+probe Ql (Resp) Not detected Not Detected [facility] This assay is an in vitro diagnostic multiplex nucleic acid amplification test for the detection and discrimination of Influenza A & B from nasopharyngeal specimens, and has been validated for use at [facility]. Negative results do not preclude Influenza A/B infections, and should not be used as the sole basis for diagnosis, treatment, or other management decisions. If Influenza A/B and RSV PCR results are negative, testing for Parainfluenza virus, Adenovirus and Metapneumovirus is routinely performed for [facility] pediatric oncology and intensive care inpatients, and is available on other patients by placing an add-on request. [facility] Fibrin D-dimer FEU (PPP) [Ma ss/Vol]on 10-11-2023 Interpretation and review of laboratory results Abnormal [facility] The VTE Exclusion D-Dimer assay is reported in ng/mL Fibrinogen Equivalent Units (FEU). Per steward/stewardess third class's instructions for use, a value of less [...] assessment model for DVT or PE exclusion.) [facility] Gas panel (BldA)on 3 Apparatus CANNULA [facility] Base excess Calc (Bld) [Moles/Vol] -2.2000 mmol/L Low -2.0 - 3.0 mmol/L [facility] CO2 (Bld) [Partial pressure] 41 mm[Hg] [facility] HCO3 (Bld) [Moles/Vol] 23.2 mmol/L 22.0 - 26.0 mmol/L [facility] Inhaled oxygen concentration 50 % [facility] Interpretation and review of laboratory results Abnormal [facility] Oxygen (Bld) [Partial pressure] 66 mm[Hg] Low [facility] Oxyhemoglobin (BldA) [Mass fraction] 90.6 % Low 94.0 - 98.0 % [facility] pH (Bld) 7.36 [pH] Low 7.38 - 7.42 pH [facility] Glucose Test strip manual (B ld) [Mass/Vol]on 10-11-2023 Glucose [Mass/Vol] 132 mg/dL High 74 - 99 mg/dL [facility] Interpretation and review of laboratory results Abnormal [facility] Glucose [Mass/Vol] 203 mg/dL High 74 - 99 mg/dL [facility] Interpretation and review of laboratory results Abnormal [facility] Glucose [Mass/Vol] 271 mg/dL High 74 - 99 mg/dL [facility] Interpretation and review of laboratory results Abnormal [facility] Glucose [Mass/Vol] 357 mg/dL High 74 - 99 mg/dL [facility] Interpretation and review of laboratory results Abnormal [facility] Glucose [Mass/Vol] 407 mg/dL High 74 - 99 mg/dL [facility] Interpretation and review of laboratory results Abnormal [facility] Glucose [Mass/Vol] 385 mg/dL High 74 - 99 mg/dL [facility] Interpretation and review of laboratory results Abnormal [facility] Glucose [Mass/Vol] 455 mg/dL High 74 - 99 mg/dL [facility] Comment on above: RN/ NOTIFIED Interpretation and review of laboratory results Abnormal [facility] Glucose [Mass/Vol] 481 mg/dL High 74 - 99 mg/dL [facility] Comment on above: RN/ NOTIFIED Interpretation and review of laboratory results Abnormal [facility] Glucose [Mass/Vol] mg/dL High 74 - 99 mg/dL [facility] Interpretation and review of laboratory results Abnormal [facility] Glucose [Mass/Vol] mg/dL High 74 - 99 mg/dL [facility] Interpretation and review of laboratory results Abnormal [facility] Glucose [Mass/Vol] 571 mg/dL High 74 - 99 mg/dL [facility] Interpretation and review of laboratory results Abnormal [facility] Glucose [Mass/Vol] 562 mg/dL High 74 - 99 mg/dL [facility] Comment on above: RN/MD NOTIFIED Interpretation and review of laboratory results Abnormal [facility] Glucose [Mass/Vol] 386 mg/dL High 74 - 99 mg/dL [facility] Interpretation and review of laboratory results Abnormal [facility] Glucose [Mass/Vol]on 023 Interpretation and review of laboratory results Abnormal [facility] Glucose, randomon 10-11-2023 Glucose [Mass/Vol] 654 mg/dL Critically high 74 - 99 mg/d L [facility] Comment on above: Confirmed by repeat analysis Lactateon 10-11-2023 Lactate [Moles/Vol] 1.6 mmol/L 0.4 - 2. 0 mmol/L [facility] Lactate [Moles/Vol]on 2022 Interpretation and review of laboratory results Normal [facility] Venipuncture immediately after or during the administration of Metamizole may lead to falsely low results. Testing should be performed immediately prior to Metamizole dosing. [facility] Natriuretic peptide B [Mass/ Vol]on 10-11-2023 Interpretation and review of laboratory results Abnormal [facility] Natriuretic peptide B (Bld) [Mass/Vol] 251 pg/mL High 0 - 99 pg/mL [facility] <100 pg/mL - Heart failure unlikely 100-299 pg/mL - Intermediate probability of acute heart failure exacerbation. Correlate with clinical context and patient history. >=300 pg/mL - Heart Failure likely. Correlate with clinical context and patient history. BNP testing is performed using different testing methodology at [facility] than at other [facility]. Direct result comparisons should only be made within the same method. [facility] No Panel Informationon 10-11 Atrial Rate 113 BPM [facility] Work Phone: [phone] P Stephenson 67 degrees [facility] Work Phone: [phone] P Offset 189 ms [facility] Work Phone: [phone] P Onset 146 ms [facility] Work Phone: [phone] ND Interval 148 ms [facility] Work Phone: Q Onset 220 ms [facility] Work Phone: [phone] QRS Count 18 beats [facility] Work Phone: [phone] QRS Duration 82 ms [facility] Work Phone: QT Interval 332 ms [facility] Work Phone: [phone] QTC Calculation(Bazett) 455 ms U [facility] Work Phone: [phone] QTC Fredericia 410 ms [facility] Work Phone: R Stephenson 39 degrees [facility] Work Phone: T Stephenson 81 degrees [facility] Work Phone: T Offset 386 ms [facility] Work Phone: Ventricular Rate 113 BPM [facility] Work Phone: Sinus tachycardia 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 [facility] Comment on above: Auto resulted. [facility] Interpretation and review of laboratory results Normal [facility] ProcalcitoninOrdered By: Teresa Fine on 10-11-2023 Procalcitonin [Mass/Vol] 0.18 ng/mL High ANGEL F - 0.07 ng/mL [facility] Procalcitonin [Mass/Vol]Orde red By: Ismael Fine on 10-11-2023 Interpretation and review of laboratory results Abnormal [facility] Procalcitonin (PCT) results measured serially can [...] on immunomodulatory medications has not been evaluated. [facility] RSV PCRon 10-11-2023 RSV RNA ALICE+probe Ql (Resp) Not detected Not Detected [facility] RSV RNA ALICE+probe Ql (Resp)o n 10-11-2023 This assay is an FDA-cleared, in vitro diagnostic nucleic acid amplification test for the detection of RSV from nasopharyngeal specimens, and has been validated for use at [facility]. Negative results do not preclude RSV infections, and should not be used as the sole basis for diagnosis, treatment, or other management decisions. If Influenza A/B and RSV PCR results are negative, testing for Parainfluenza virus, Adenovirus and Metapneumovirus is routinely performed for pediatric oncology and intensive care inpatients at [facility], and is available on other patients by placing an add-on request. [facility] SARS-CoV-2 (COVID-19) RNA NA A+probe Ql (Resp)Ordered By: Rae Marcelino on 10-11-2023 Interpretation and review of laboratory results Abnormal [facility] This assay has received FDA Emergency [...] and has been validated for use at [facility]. Negative results do not preclude COVID-19 infections and should not be used as the sole basis for diagnosis, treatment, or other management decisions. [facility] SST TOPon 10-11-2023 Extra Tube Hold for add-ons. [facility] Comment on above: Auto resulted. [facility] Sars-CoV-2 PCR, SymptomaticO rdered By: Rae Marcelino on 10-11-2023 SARS-CoV-2 (COVID-19) RNA ALICE+probe Ql (Resp) Detected Abnormal Not Detected [facility] Tropinin I.cardiac panel Hig h sensitivity methodon 10-11-2023 Interpretation and review of laboratory results Abnormal [facility] Less than 99th percentile of normal [...] at [facility] than at other [facility]. Direct result comparisons should only be made within the same method. [facility] Interpretation and review of laboratory results Abnormal [facility] Less than 99th percentile of normal [...] at [facility] than at other [facility]. Direct result comparisons should only be made within the same method. [facility] Troponin I, High Sensitivity , Initialon 10-11-2023 Tropinin I.cardiac panel High sensitivity method 102 ng/L Critically high 0 - 20 ng/L [facility] Troponin, High Sensitivity, 1 Houron 10-11-2023 Tropinin I.cardiac panel High sensitivity method 354 ng/L Critically high 0 - 20 ng/L [facility] Comment on above: Previous result veri fioumar on 10/11/2023 0209 on specimen/case [id number] called with component [facility] for procedure Troponin I, High Sensitivity, Initial with value 102 ng/L. US Heart TransthoracicOrdere d By: Jose Enrique Molina on 10-11-2023 LA vol index A/L 25.1 [facility] Work Phone: LV A4C EF 45.6 [facility] Work Phone: LV biplane EF 44 [facility] Work Phone: LVIDd 3.70 [facility] Work Phone: LVOT diam 1.80 [facility] Work Phone: [facility] Work Phone: [place] [address] [phone], TRANSTHORACIC ECHOCARDIOGRAM REPORT Patient Name: ENOC ARMANDO Reading Physician: [id number] Jose Enrique Molina MD Study Date: 10/11/2023 Ordering Provider: [id number] VERA RIVERA MRN/PID: [id number] Fellow: Nurse: Jana See RN Date of /Age: 2 1945 / 77 years [employer]: Cecilio Gabriel RDCS Gender: M Additional Staff: Height: 170.18 cm Admit Date: Weight: 71.67 kg Admission Status: Inpatient - Routine BSA: 1.83 m2 Department Location: [address]-ICU Blood Pressure: 141 /71 mmHg Study Type: TRANSTHORACIC ECHO (TTE) COMPLETE Diagnosis/ICD: Acute on chronic systolic (congestive) heart failure (CHF)-I50.23 CPT Codes: Echo Complete w Full Doppler-66811 Study Detail: The following Echo studies were [...] LA Area A2C: 16.2 cm2 LA Major Stephenson A4C: 5.3 cm LA Major Stephenson A2C: 5.0 cm LA Volume Index: 23.9 ml/m2 LA Vol A4C: 43.7 ml LA Vol A2C: 43.3 ml LV SYSTOLIC FUNCTION BY 2D PLANIMETRY (MOD): Normal Ranges: EF-A4C View: 45.6 % (>=55%) EF-A2C View: 40.9 % EF-Biplane: 44.2 % AORTIC VALVE: Normal Ranges: LVOT Diameter: 1.80 cm (1.8-2.4cm) RIGHT VENTRICLE: RV Basal 3.49 cm RV Mid 2.45 cm RV Major 7.8 cm [id number] Jose Enrique Molina MD Electronically signed on 10/11/2023 at 9:43:19 AM Final Jose Enrique Gardiner MD - 10/11/2023 [place] [address] [phone], TRANSTHORACIC ECHOCARDIOGRAM REPORT Patient Name: ENOC Titus TR Reading Physician: [id number] Jose Enrique Molina MD Study Date: 10/11/2023 Ordering Provider: [id number] VERA RIVERA MRN/PID: [id number] Fellow: Nurse: Jana See RN Date of /Age: 2 1945 / 77 years [employer] Lieutenant: Cecilio Gabriel RDCS Gender: M Additional Staff: Height: 170.18 cm Admit Date: Weight: 71.67 kg Admission Status: Inpatient - Routine BSA: 1.83 m2 Department Location: [address]-ICU Blood Pressure: 141 /71 mmHg Study Type: TRANSTHORACIC ECHO (TTE) COMPLETE Diagnosis/ICD: Acute on chronic systolic (congestive) heart failure (CHF)-I50.23 CPT Codes: Echo Complete w Full Doppler-13507 Study Detail: The following Echo studies were [...] LA Area A2C: 16.2 cm2 LA Major Stephenson A4C: 5.3 cm LA Major Stephenson A2C: 5.0 cm LA Volume Index: 23.9 ml/m2 LA Vol A4C: 43.7 ml LA Vol A2C: 43.3 ml LV SYSTOLIC FUNCTION BY 2D PLANIMETRY (MOD): Normal Ranges: EF-A4C View: 45.6 % (>=55%) EF-A2C View: 40.9 % EF-Biplane: 44.2 % AORTIC VALVE: Normal Ranges: LVOT Diameter: 1.80 cm (1.8-2.4cm) RIGHT VENTRICLE: RV Basal 3.49 cm RV Mid 2.45 cm RV Major 7.8 cm [id number] Jose Enrique Molina MD Electronically signed on 10/11/2023 at 9:43:19 AM Final [facility] Work Phone: [phone] Urinalysis complete W Reflex Culture panel (U)on 10-11-2023 Hyaline casts Auto (Urine sed) [#/Area] OCCASIONAL Abnormal NONE /LPF [facility] Interpretation and review of laboratory results Abnormal [facility] RBC Auto (Urine sed) [#/Area] NONE NONE, 1-2, 3-5 /HPF [facility] WBC Auto (Urine sed) [#/Area] NONE 1-5, NONE /HPF [facility] Appearance (U) Clear Clear [facility] Work Phone: [phone] Bilirubin (U) [Mass/Vol] Negative NEGATIVE [facility] Work Phone: [phone] Color (U) Yellow Straw, Yellow [facility] Work Phone: [phone] Glucose Auto test strip (U) [Mass/Vol] >=500 (3+) Abnormal NEGATIVE mg/dL [facility] Work Phone: [phone] Interpretation and review of laboratory results Abnormal [facility] Work Phone: [phone] Ketones (U) [Mass/Vol] 5 (TRACE) Abnormal NEGAT FRANK mg/dL [facility] Work Phone: [phone] Leukocyte esterase Auto test strip Ql (U) Negative NEGATIVE [facility] Work Phone: [phone] Nitrite Auto test strip Ql (U) Negative NEGATIVE [facility] Work Phone: [phone] pH (U) 5.0 [pH] 5.0, 5.5, 6.0, 6.5, 7.0, 7.5, 8.0 [facility] Work Phone: [phone] Protein (U) [Mass/Vol] 100 (2+) Abnormal NEGAT FRANK mg/dL [facility] Work Phone: [phone] RBC (U) [#/Vol] Negative NEGATIVE [facility] Work Phone: [phone] Specific gravity (U) [Rel density] 1.014 1.005 - 1.035 [facility] Work Phone: Urobilinogen (U) [Mass/Vol] mg/dL NINF - 2.0 mg/dL [facility] Work Phone: [facility] Work Phone: XR Chest Single viewon 10-11 1. Diffuse interstitial and scattered hazy opacities. These are nonspecific and may represent atypical infectious or inflammatory process or possibly edema in the appropriate clinical setting. Component may also be related to chronic parenchymal changes. Recommend follow-up to resolution. Signed by: Kahlil Fagan 10/11/2023 1:33 AM Dictation workstation: [id number] Interpreted By: Kahlil Fagan, STUDY: XR CHEST 1 VIEW; 10/11/2023 1:30 am INDICATION: Signs/Symptoms:Cough . COMPARISON: Chest radiograph 11/04/2012 ACCESSION NUMBER(S): [id number] ORDERING CLINICIAN: AURY ROUSE FINDINGS: SUPPORT DEVICES: [...] . COMPARISON: Chest radiograph 11/04/2012 ACCESSION NUMBER(S): [id number] ORDERING CLINICIAN: AURY ROUSE FINDINGS: SUPPORT DEVICES: [...] Kahlil Fagan 10/11/2023 1:33 AM Dictation workstation: [id number] [facility] Work Phone: Radiology Study observation (narrative) [facility] Work Phone: XR Chest Single viewOrdered By: Kahlil Rylan on 10-11-2023 [facility] Work Phone: US RENAL BILATon 07-30-2023 US RENAL BILAT Patient Name: ENOC ARMANDO STUDY: US RENAL BILAT 07/30/2023 1:11 pm INDICATION: 77 y/o M with CKD N18.9: CKD (chronic kidney disease). COMPARISON: None. ACCESSION NUMBER(S): [id number] ORDERING CLINICIAN: AYANNA ALBERT TECHNIQUE: Grayscale imaging [...] hydronephrosis. Electronically signed by: TENNILLE MAHARAJ MD [facility] Therapy Communicationon 07-03 Therapy Communication Message [...] (E10.9) Orders Albumin, Urine Spot; Status:Active; Requested for:[id number]; Basic Metabolic Panel; Status:Active; Requested for:09Snq4874; Magnesium, Serum; Status:Active; Requested for:41Ipp4274; Parathormone Intact, Serum; Status:Active; Requested for:19Lpk6117; Phosphorus, Serum; Status:Active; Requested for:62Rqo1538; Ultrasound Kidney Bilateral; Status:Hold For - Scheduling; Requested for:17Yac9805; Radiologist to Determine Optimal Study : Y What are the patient's signs and symptoms? : CKD Uric Acid, Serum; Status:Active; Requested for:37Uvq7216; Urinalysis; Status:Active; Requested for:89Oyh6207; Vitamin D 25-Hydroxy; Status:Need Information - ABN Disposition; Requested for:11Dtv4454; Patient Discussion/Summary Issues: 1. 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 Normal [employer] Tobacco Screening.on 023 Fall risk assessment b) One or more fall s in the last year [facility] Work Phone: Tobacco use status [facility] a) Yes U H [facility] Work Phone: COMPREHENSIVE PANELon 2022 Albumin [Mass/Vol] 3.7 g/dL Normal 3.4 - 5.0 [facility] [place] Comment on above: Performed By: #### C MP #### [address] [address] ALP [Catalytic activity/Vol] 80 U/L Normal 33 - 136 [facility] Comment on above: Performed By: #### C MP #### [address] [address] ALT [Catalytic activity/Vol] 12 U/L Normal 10 - 52 [facility] Comment on above: Result Comment: Twila ents treated with Sulfasalazine may generate falsely decreased results for ALT. Performed By: #### C MP #### [address] [address] Anion gap [Moles/Vol] 10 mmol/L Normal 10 - 20 [facility] Comment on above: Performed By: #### C MP #### [address] [address] AST [Catalytic activity/Vol] 16 U/L Normal 9 - 39 [facility] Comment on above: Performed By: #### C MP #### [address] [address] Bilirubin [Mass/Vol] 0.5 mg/dL Normal 0.0 - 1.2 [facility] Comment on above: Performed By: #### C MP #### [address] [address] Calcium [Mass/Vol] 8.9 mg/dL Normal 8.6 - 10.3 [facility] [place] Comment on above: Performed By: #### C MP #### [address] [address] Chloride [Moles/Vol] 107 mmol/L Normal 98 - 107 [facility] Comment on above: Performed By: #### C MP #### [address] [address] Creatinine [Mass/Vol] 1.85 mg/dL High 0.50 - 1.30 [facility] Comment on above: Performed By: #### C MP #### [address] [address] GFR/1.73 sq M.predicted among non-blacks MDRD (S/P/Bld) [Vol rate/Area] 36 mL/min/{1.73_m2} Abnormal >90 [facility] Comment on above: Result Comment: CALC ULATIONS OF ESTIMATED GFR ARE PERFORMED USING THE 2020 CKD-EPI STUDY REFIT EQUATION WITHOUT THE RACE VARIABLE FOR THE IDMS-TRACEABLE CREATININE METHODS. https://jasn.asnjournals.org/content//ASN.20 86178929 Performed By: #### C MP #### [address] [address] Glucose [Mass/Vol] 347 mg/dL High 74 - 99 [facility] [place] Comment on above: Performed By: #### C MP #### [address] [place] [address] HCO3 (Bld) [Moles/Vol] 27 mmol/L Normal 21 - 32 [facility] Comment on above: Performed By: #### C MP #### [address] [address] Potassium [Moles/Vol] 4.4 mmol/L Normal 3.5 - 5.3 [facility] Comment on above: Performed By: #### C MP #### [address] [address] Protein [Mass/Vol] 6.0 g/dL Low 6.4 - 8.2 [facility] [place] Comment on above: Performed By: #### C MP #### [address] [address] Sodium [Moles/Vol] 140 mmol/L Normal 136 - 145 [facility] [place] Comment on above: Performed By: #### C MP #### [address] [address] Urea nitrogen [Mass/Vol] 31 mg/dL High 6 - 23 [facility] Comment on above: Performed By: #### C MP #### [address] [address] HEMOGLOBIN A1Con 06-11-2023 Glucose [Mass/Vol] 171 mg/dL Normal [facility] [place] Comment on above: Performed By: #### H BA1E #### [address] [address] HbA1c (Bld) [Mass fraction] 7.6 % Abnormal [facility] Comment on above: Result Comment: Diag nosis of Diabetes-Adults Non-Diabetic: < or = 5.6% Increased risk for developing diabetes: 5.7-6.4% Diagnostic of diabetes: > or = 6.5% . Monitoring of Diabetes Age (y) Therapeutic Goal (%) Adults: >18 <7.0 Pediatrics: 13-18 <7.5 7-12 <8.0 0- 6 7.5-8.5 [employer]. Diabetes Care 33(S1), Nov 2009. Performed By: #### H BA1E #### [address] [address] ALBUMIN, URINE SPOTon 2022 ALBUMIN,URINE 195.3 mg/L Normal Not Established [facility] Comment on above: Performed By: #### A LBSP ####[id number] [place] [address] ALBUMIN/CREAT RATIO 212.5 ug/mg air route traffic controller High 0.0 - 30.0 [facility] Comment on above: Performed By: #### A LBSP ####[id number] [place] [address] CREATININE,URINE 91.9 mg/dL Normal 20.0 - 370.0 [facility] [place] Comment on above: Performed By: #### A LBSP ####[id number] [place] [address] CBC AND DIFFERENTIALon 02-12 % AUTOMATED IMMATURE GRAN 0.3 % Normal 0.0 - 0.9 [facility] Comment on above: Result Comment: Arielle ture Granulocyte Count (IG) includes promyelocytes, myelocytes and metamyelocytes but does not include bands. Percent differential counts (%) should be interpreted in the context of the absolute cell counts (cells/L). Performed By: #### C BCDF #### [address] [address] Basophils (Bld) [#/Vol] 0.09 10*3/uL Normal 0.00 - 0.[address] [facility] Comment on above: Performed By: #### C BCDF #### [address] [address] Basophils/100 WBC (Bld) 1.2 % Normal 0.0 - 2.[address] [facility] Comment on above: Performed By: #### C BCDF #### [address] [address] Eosinophils (Bld) [#/Vol] 0.40 10*3/uL Normal 0.00 - [address] [facility] Comment on above: Performed By: #### C BCDF #### [address] [address] Eosinophils/100 WBC (Bld) 5.2 % Normal 0.0 - 6.0 [facility] Comment on above: Performed By: #### C BCDF #### [address] [address] Erythrocyte distribution width (RBC) [Ratio] 13.1 % Normal 11.5 - 14.5 [facility] Comment on above: Performed By: #### C BCDF #### [address] [address] Hematocrit (Bld) [Volume fraction] 39.5 % Low 41.0 - 52.0 [facility] Comment on above: Performed By: #### C BCDF #### [address] [address] Hemoglobin (Bld) [Mass/Vol] 12.6 g/dL Low 13.5 - 17.5 [facility] Comment on above: Performed By: #### C BCDF #### [address] [address] Lymphocytes (Bld) [#/Vol] 1.68 10*3/uL Normal 0.80 - [address] [facility] Comment on above: Performed By: #### C BCDF #### [address] [address] Lymphocytes/100 WBC (Bld) 21.9 % Normal 13.0 - 44. 0 [facility] Comment on above: Performed By: #### C BCDF #### [address] [address] MCHC (RBC) [Mass/Vol] 31.9 g/dL Low 32.0 - 36.0 [facility] Comment on above: Performed By: #### C BCDF #### [address] [address] MCV (RBC) [Entitic vol] 95 fL Normal 80 - 100 [facility] Comment on above: Performed By: #### C BCDF #### [address] [address] Monocytes (Bld) [#/Vol] 0.57 10*3/uL Normal 0.05 - 0.[address] [facility] Comment on above: Performed By: #### C BCDF #### [address] [address] Monocytes/100 WBC (Bld) 7.4 % Normal 2.0 - 10.0 [facility] Comment on above: Performed By: #### C BCDF #### [address] [address] Neutrophils (Bld) [#/Vol] 4.91 10*3/uL Normal 1.60 - [address] [facility] Comment on above: Result Comment: Perc ent differential counts (%) should be interpreted in the context of the absolute cell counts (cells/L). Performed By: #### C BCDF #### [address] [address] Neutrophils/100 WBC (Bld) 64.0 % Normal 40.0 - 80. 0 [facility] Comment on above: Performed By: #### C BCDF #### [address] [address] Platelets (Bld) [#/Vol] 229 10*3/uL Normal 150 - 450 [facility] Comment on above: Performed By: #### C BCDF #### [address] [address] RBC 4.18 x10E12/L Low 4.50 - 5.90 [facility] Comment on above: Performed By: #### C BCDF #### [address] [address] WBC (Bld) [#/Vol] 7.7 10*3/uL Normal 4.4 - 11.3 [facility] [place] Comment on above: Performed By: #### C BCDF #### [address] [address] COMPREHENSIVE PANELon 2022 Albumin [Mass/Vol] 4.0 g/dL Normal 3.4 - 5.0 [facility] [place] Comment on above: Performed By: #### C MP #### [address] [address] ALP [Catalytic activity/Vol] 79 U/L Normal 33 - 136 [facility] Comment on above: Performed By: #### C MP #### [address] [address] ALT [Catalytic activity/Vol] 12 U/L Normal 10 - 52 [facility] Comment on above: Result Comment: Twila ents treated with Sulfasalazine may generate falsely decreased results for ALT. Performed By: #### C MP #### [address] [address] Anion gap [Moles/Vol] 10 mmol/L Normal 10 - 20 [facility] Comment on above: Performed By: #### C MP #### [address] [address] AST [Catalytic activity/Vol] 13 U/L Normal 9 - 39 [facility] Comment on above: Performed By: #### C MP #### [address] [address] Bilirubin [Mass/Vol] 0.6 mg/dL Normal 0.0 - 1.2 [facility] Comment on above: Performed By: #### C MP #### [address] [address] Calcium [Mass/Vol] 9.4 mg/dL Normal 8.6 - 10.3 [facility] [place] Comment on above: Performed By: #### C MP #### [address] [address] Chloride [Moles/Vol] 105 mmol/L Normal 98 - 107 [facility] Comment on above: Performed By: #### C MP #### [address] [address] Creatinine [Mass/Vol] 1.69 mg/dL High 0.50 - 1.30 [facility] Comment on above: Performed By: #### C MP #### [address] [address] GFR/1.73 sq M.predicted among non-blacks MDRD (S/P/Bld) [Vol rate/Area] 41 mL/min/{1.73_m2} Abnormal >90 [facility] Comment on above: Result Comment: CALC ULATIONS OF ESTIMATED GFR ARE PERFORMED USING THE 2020 CKD-EPI STUDY REFIT EQUATION WITHOUT THE RACE VARIABLE FOR THE IDMS-TRACEABLE CREATININE METHODS. https://jasn.asnjournals.org/content//ASN.20 55199669 Performed By: #### C MP #### [address] [address] Glucose [Mass/Vol] 253 mg/dL High 74 - 99 [facility] [place] Comment on above: Performed By: #### C MP #### [address] [address] HCO3 (Bld) [Moles/Vol] 28 mmol/L Normal 21 - 32 [facility] Comment on above: Performed By: #### C MP #### [address] [address] Potassium [Moles/Vol] 4.8 mmol/L Normal 3.5 - 5.3 [facility] Comment on above: Performed By: #### C MP #### [address] [address] Protein [Mass/Vol] 6.4 g/dL Normal 6.4 - 8.2 [facility] [place] Comment on above: Performed By: #### C MP #### [address] [address] Sodium [Moles/Vol] 138 mmol/L Normal 136 - 145 [facility] [place] Comment on above: Performed By: #### C MP #### [address] [address] Urea nitrogen [Mass/Vol] 25 mg/dL High 6 - 23 [facility] Comment on above: Performed By: #### C MP #### [address] [address] HEMOGLOBIN A1Con 02-12-2023 Glucose [Mass/Vol] 174 mg/dL Normal [facility] [place] Comment on above: Performed By: #### H BA1E #### [address] [address] HbA1c (Bld) [Mass fraction] 7.7 % Abnormal [facility] Comment on above: Result Comment: Diag nosis of Diabetes-Adults Non-Diabetic: < or = 5.6% Increased risk for developing diabetes: 5.7-6.4% Diagnostic of diabetes: > or = 6.5% . Monitoring of Diabetes Age (y) Therapeutic Goal (%) Adults: >18 <7.0 Pediatrics: 13-18 <7.5 7-12 <8.0 0- 6 7.5-8.5 [employer]. Diabetes Care 33(S1), Nov 2009. Performed By: #### H BA1E #### [address] [address] LIPID PANEL (CORONARY RISK 2 )on 02-12-2023 Cholesterol [Mass/Vol] 154 mg/dL Normal 0 - 199 [facility] Comment on above: Result Comment: . [...] dosing. Performed By: #### L IPID #### [address] [address] Cholesterol in HDL [Mass/Vol] 43.0 mg/dL Normal [facility] Comment on above: Result Comment: . AGE VERY LOW LOW NORMAL HIGH 0-19 Y < 35 < 40 40-45 ---- 20-24 Y ---- < 40 >45 ---- >24 Y ---- < 40 40-60 >60 . Performed By: #### L IPID #### [address] [address] Cholesterol in LDL [Mass/Vol] 96 mg/dL Normal 0 - 99 [facility] Comment on above: Result Comment: . NEAR BORD AGE DESIRABLE OPTIMAL HIGH HIGH VERY HIGH 0-19 Y 0 - 109 --- 110-129 >/= 130 ---- 20-24 Y 0 - 119 --- 120-159 >/= 160 ---- >24 Y 0 - 99 100-129 130-159 160-189 >/=190 . Performed By: #### L IPID #### [address] [address] Cholesterol in VLDL [Mass/Vol] 15 mg/dL Normal 0 - 40 [facility] Comment on above: Performed By: #### L IPID #### [address] [address] Cholesterol.total/Cholest santos in HDL [Mass ratio] 3.6 {ratio} Normal [facility] Comment on above: Result Comment: REF VALUES DESIRABLE < 3.4 HIGH RISK > 5.0 Performed By: #### L IPID #### [address] [address] Triglyceride [Mass/Vol] 77 mg/dL Normal 0 - 149 [facility] Comment on above: Result Comment: . [...] dosing. Performed By: #### L IPID #### [address] [address] PROSTATE SPEC.AG,SCREENon PROSTATE SPEC.AG,SCREEN 3.14 ng/mL Normal 0.00 - 4.00 [facility] Comment on above: Result Comment: The FDA requires that the method used for PSA assay be reported to the physician. Values obtained with different assay methods must not be used interchangeably. This test was performed at [facility] using the Qiniu PSA assay is a two-site immunoenzymatic sandwich assay. The assay is approved for measurement of prostate-specific antigen (PSA)in serum and may be used in conjunction with a digital rectal examination in men 50 years and older as an aid in detection of prostate cancer. 8-Lhpqi-xhfzryjnr inhibitors (e.g. Proscar, Finasteride, Avodart, Dutasteride and Alma Rosa) for the treatment of BPH have been shown to lower PSA levels by an average of 50% after 6 months of treatment. Performed By: #### P SAS #### [address] [address] THYROXINE,FREEon 02-12-2023 THYROXINE,FREE 1.16 ng/dL High 0.61 - 1.12 [facility] Comment on above: Result Comment: Thyr oxine Free testing is performed using different testing methodology at [facility] than at other [facility]. Direct result comparisons should only be made [...] draw. Performed By: #### T 4FRE #### [address] [address] TSHon 02-12-2023 TSH Qn 0.73 m[IU]/L Normal 0.44 - 3.98 [facility] Comment on above: Result Comment: TSH testing is performed using different testing methodology at [facility] than at other [facility]. Direct result comparisons should only be made within the same method. Performed By: #### T SH2 #### [address] [address] PT Progress Noteon 3 PT Progress Note [...] . the patient will continue therapy at [facility]. Potential to achieve rehab goals is fair: [...] Declined. Insurance Insurance reviewed Visit number: 10 [facility] Evaluating therapist Shoaib Bhandari PT. The [...] code time is 30 minutes. Therapeutic exercise (94856):. Not Today 01/25/23 NuStep 5? Slant board [...] 10 x 10? hold (N). Manual Therapy (21571): timed minutes 15, units 1 . STW to glutes and QL and IT band, hip flexor. Modalities: untimed minutes 15, units 1 . IFC to R Lumbar/Glute region x 10' in S/L w/ MHP. 'Scores and Scales' Signatures Electronically signed by : Zoila Lopez, ONLINE MEDIA DIRECTOR; Jan 25 2023 5:14PM EST (Author) Electronically [...] . the patient will continue therapy at [facility]. Potential to achieve rehab goals is fair: [...] code time is 35 minutes. Therapeutic exercise (43447): timed minutes 20, units 1 . Pt [...] . the patient will continue therapy at [facility]. Potential to achieve rehab goals is fair: [...] Declined. Insurance Insurance reviewed Visit number: 9 [facility] Evaluating therapist Shoaib Bhandari PT. The [...] code time is 35 minutes. Therapeutic exercise (64028): timed minutes 20, units 1 . Pt [...] . the patient will continue therapy at [facility]. Potential to achieve rehab goals is fair: [...] code time is 38 minutes. Therapeutic exercise (82525): timed minutes 26, units 2 . NuStep [...] 30? D/C to HEP . Manual Therapy (21246): timed minutes 12, units 1 . STW to glutes and QL and IT band. Provided today:. 12/25/22 [id number] Provided and reviewed HEP, patient demosntrated good [...] . the patient will continue therapy at [facility]. Potential to achieve rehab goals is fair: [...] Declined. Insurance Insurance reviewed Visit number: 7 [facility] Evaluating therapist Shoaib Bhandari PT. The [...] code time is 38 minutes. Therapeutic exercise (65413): timed minutes 26, units 2 . NuStep [...] 30? D/C to HEP . Manual Therapy (53288): timed minutes 12, units 1 . STW to glutes and QL and IT band. Provided today:. 12/25/22 [id number] Provided and reviewed HEP, patient demosntrated good understanding. 'Scores and Scales' Signatures Electronically signed by : Chaya Chan, ONLINE MEDIA DIRECTOR; Jan 13 2023 11:01AM EST (Author) Electronically [...] . the patient will continue therapy at [facility]. Potential to achieve rehab goals is fair: [...] Declined. Insurance Insurance reviewed Visit number: 6 [facility] Evaluating therapist Shoaib Bhandari PT. The [...] code time is 43 minutes. Therapeutic exercise (29549): timed minutes 32, units 2 . NuStep [...] x 10 Green band . Manual Therapy (00771): timed minutes 11, units 1 . STW to glutes and QL 10'. Provided today:. 12/25/22 [id number] Provided and reviewed HEP, patient demosntrated good understanding. 'Scores and Scales' Signatures Electronically signed by : Chaya Chan, ONLINE MEDIA DIRECTOR; Jan 08 2023 10:51AM EST (Author) Electronically [...] . the patient will continue therapy at [facility]. Potential to achieve rehab goals is fair: [...] code time is 44 minutes. Therapeutic exercise (74929): timed minutes 34, units 2 . NuStep [...] 10 Green band (N) . Manual Therapy (24335): timed minutes 10, units 1 . STW to glutes and QL 10'. Provided today:. 12/25/22 [id number] Provided and reviewed HEP, patient demosntrated good understanding. 'Scores and Scales' Signatures Electronically signed by : Zoila Lopez, ONLINE MEDIA DIRECTOR; Jan 06 2023 12:41PM EST (Author) Electronically [...] . the patient will continue therapy at [facility]. Potential to achieve rehab goals is fair: [...] code time is 44 minutes. Therapeutic exercise (85374): timed minutes 34, units 2 . NuStep [...] x 10 orange band . Manual Therapy (51504): timed minutes 10, units 1 . STW to glutes and QL 10'. Provided today:. 12/25/22 [id number] Provided and reviewed HEP, patient demosntrated good understanding. 'Scores and Scales' Signatures Electronically signed by : Zoila Lopez ONLINE MEDIA DIRECTOR; Jan 01 2023 12:56PM EST (Author) Electronically [...] . the patient will continue therapy at [facility]. Potential to achieve rehab goals is fair: [...] code time is 44 minutes. Therapeutic exercise (29263): timed minutes 34, units 2 . NuStep [...] x 10 orange band . Manual Therapy (59803): timed minutes 10, units 1 . STW to glutes and QL 10'. Provided today:. 12/25/22 [id number] Provided and reviewed HEP, patient demosntrated good understanding. 'Scores and Scales' Signatures Electronically signed by : Zoila Lopez, ONLINE MEDIA DIRECTOR; Dec 30 2022 5:01PM EST (Author) Electronically [...] . the patient will continue therapy at [facility]. Potential to achieve rehab goals is fair: [...] Declined. Insurance Insurance reviewed Visit number: 2 [facility] Evaluating therapist Shoaib Bhandari PT. The [...] code time is 41 minutes. Therapeutic exercise (70656): timed minutes 31, units 2 . NuStep 5? start wall lean n mini squat x10 LTR x10 5? hold Piriformis stretch 3 x 30? Supine QL stretch 3 x 30? Hip flex stretch EOB TrA x10 5? hold Hooklying TrA/hip add ball 2 x 10 3? hold Hooklying TrA/hip abd 2 x 10 orange band . Manual Therapy (63147): timed minutes 10, units 1 . STW to gluts and QL. Provided today:. 12/25/22 [id number] Provided and reviewed HEP, patient demosntrated good [...] . the patient will continue therapy at [facility]. 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 Assessment At least a 5 yr HX of LBP (previous HX of sciatica). No recent film studies have been done. He will be a low fall risk. The patient will continue his therapy at [facility]. Physical findings include limited trunk ROM with [...] Declined. Insurance Insurance reviewed Visit number: 1 [facility] Evaluating therapist Shoaib Bhandari PT. The [...] Impact Care:. ID confirmed with B-day; speaks icelandic No obtrusive barriers to learning identified/observed. Objective [...] am Time (more content not included)... Normal Cloud9 IDE US DOPPLER CAROTIDOrdered By : Mary Vargas on 02-26-2021 Patient Info Name: ENOC ARMANDO Age: 75 years : 1945 Gender: Male Exam Date: 02/26/2021 1:55 PM Patient Status: Outpatient Interactive Developer: Melissa Swfit BS, RDMS (AB), RVT Referring Physician: MARY VARGAS ; Indications I65.23 - Occlusion and stenosis of bilateral carotid arteries Procedure Description 91647 Duplex examination using B-mode, color and spectral [...] in the (more content not included)... [facility], Rad In Heartlab Xper Echopacs - 02/26/2021 4:33 PM EDT Patient Info Name: ENOC ARMANDO Age: 75 years : 1945 Gender: Male Exam Date: 02/26/2021 1:55 PM Patient Status: Outpatient Interactive Developer: Melissa Swift, TAMMI, RDMS (AB), RVT Referring Physician: MARY VARGAS ; Indications I65.23 - Occlusion and stenosis of bilateral carotid arteries Procedure Description 07224 Duplex examination using B-mode, color and spectral [...] JO-ANN Nguyen DO on 02/26/2021 04:31 PM [facility] Auto Diffon 07-04-2019 Basophils (Bld) [#/Vol] 0.1 E3/mcL Normal 0.0-0.2 [facility] Comment on above: Order Comment: Order Added by Discern Expert. Performed By: #### 2 [id number] #### [facility] [address] [place] [address] Basophils/100 WBC (Bld) 1.2 % Normal 0.0-2.0 [facility] Comment on above: Order Comment: Order Added by Discern Expert. Performed By: #### 2 349644 #### MIKE [employer] [address] [place] [address] Eos Absolute 0.2 E3/mcL Normal 0.0-0.7 [facility] Comment on above: Order Comment: Order Added by Discern Expert. Performed By: #### 2 827294 #### [facility] [address] [place] [address] Eosinophils/100 WBC (Bld) 2.0 % Normal 0.0-11.0 [facility] Comment on above: Order Comment: Order Added by Discern Expert. Performed By: #### 2 194475 #### MIKE [employer] [address] [place] [address] Lymphocytes (Bld) [#/Vol] 1.7 E3/mcL Normal 1.2-3.4 [facility] Comment on above: Order Comment: Order Added by Andrew Expert. Performed By: #### 2 194037 #### [facility]KE [employer] [address] [place] [address] Lymphocytes/100 WBC (Bld) 20.9 % Normal 20.0-55.0 [facility] Comment on above: Order Comment: Order Added by Discern Expert. Performed By: #### 2 948543 #### [facility]KE [employer] [address] [place] [address] [place] Absolute 0.7 E3/mcL Normal 0.0-0.7 [facility] Comment on above: Order Comment: Order Added by Discern Expert. Performed By: #### 2 056315 #### MIKE [employer] [address] [place] [address] Monocytes/100 WBC (Bld) 8.0 % Normal 0.0-10.0 [facility] Comment on above: Order Comment: Order Added by Discern Expert. Performed By: #### 2 288268 #### MIKE [employer] [address] [place] [address] Neutro Absolute 5.5 E3/mcL Normal 1.4-6.5 [facility] Comment on above: Order Comment: Order Added by Discern Expert. Performed By: #### 2 907516 #### MIKE [employer] [address] [place] [address] Neutro Auto 67.9 % Normal 37.0-75.0 [facility] Comment on above: Order Comment: Order Added by Discern Expert. Performed By: #### 2 763023 #### [facility] [employer] [address] [place] [address] CBC w/ Auto Diffon Erythrocyte distribution width (RBC) [Ratio] 13.3 % Normal 11.5-14.5 [facility] Comment on above: Performed By: #### 2 474084 #### MIKE Zazueta [address] [place] [address] Hematocrit (Bld) [Volume fraction] 40.4 % Low 42.0-52.0 [facility] Comment on above: Performed By: #### 2 248643 #### MIKE [employer] [facility] [place] [address] Hemoglobin (Bld) [Mass/Vol] 13.6 g/dL Normal 13.5-18.0 [facility] Comment on above: Performed By: #### 2 812650 #### MI[facility] [employer] [address] [place] [address] MCH (RBC) [Entitic mass] 31.6 pg High 27.0-31.0 [facility] Comment on above: Performed By: #### 2 727137 #### MIKE [employer] [address] [place] [address] MCHC (RBC) [Mass/Vol] 33.7 g/dL Normal 33.0-37.0 [facility] Comment on above: Performed By: #### 2 442675 #### MIKE [employer] [facility] [place] [address] MCV (RBC) [Entitic vol] 93.8 fL Normal 78.0-100.0 [facility] Comment on above: Performed By: #### 2 666584 #### [facility]KE [employer] [address] [place] [address] Platelet mean volume (Bld) [Entitic vol] 10.2 fL Normal 7.4-11.0 [facility] Comment on above: Performed By: #### 2 629663 #### MIKE [employer] [address] [place] [address] Platelets (Bld) [#/Vol] 218 E3/mcL Normal 130-400 [facility] Comment on above: Performed By: #### 2 669065 #### [employer] [address] [place] [address] RBC (Bld) [#/Vol] 4.31 E6/mcL Normal 3.90-6.10 [facility] Comment on above: Performed By: #### 2 846341 #### MIKE Zazueta [address] [place] [address] WBC (Bld) [#/Vol] 8.1 E3/mcL Normal 3.6-11.0 [facility] Comment on above: Performed By: #### 2 257181 #### MIKE Zazueta [address] [place] [address] CMPon 07-04-2019 Albumin [Mass/Vol] 4.2 g/dL Normal 3.4-5.0 [facility] Comment on above: Performed By: #### 2 716568 #### MIKE [employer] [facility] [place] [address] Albumin/Globulin [Mass ratio] 1.8 {ratio} Normal 1.1-1.9 [facility] Comment on above: Performed By: #### 2 015838 #### MIKEAnabelle [employer] [address] [place] [address] Alk Phos 81 Int._Unit/L Normal 33-136 [facility] Comment on above: Performed By: #### 2 421019 #### MIKE [employer] [address] [place] [address] ALT [Catalytic activity/Vol] 15 Int._Unit/L Normal 10-52 [facility] Comment on above: Performed By: #### 2 979160 #### MIKE [employer] [address] [place] [address] Anion gap [Moles/Vol] 12 mmol/L Normal 10-20 [facility] Comment on above: Performed By: #### 2 382037 #### MIKEAnabelle [facility] [address] [place] [address] AST [Catalytic activity/Vol] 18 Int._Unit/L Normal 9-39 [facility] Comment on above: Performed By: #### 2 450050 #### [employer]KEAnabelle [employer] [address] [place] [address] Bili Total 0.35 mg/dL Normal 0.00-1.20 [facility] Comment on above: Performed By: #### 2 949551 #### MIKE [employer] [address] [place] [address] Calcium [Mass/Vol] 9.5 mg/dL Normal 8.6-10.3 [facility] Comment on above: Performed By: #### 2 311082 #### MIKE [employer] [address] [place] [address] Chloride [Moles/Vol] 108 mmol/L High 98-107 [facility] Comment on above: Performed By: #### 2 627696 #### MIKE [employer] [address] [place] [address] CO2 [Moles/Vol] 27.0 mmol/L Normal 21.0-32.0 [facility] Comment on above: Performed By: #### 2 104040 #### MIKE [employer] [address] [place] [address] Creatinine [Mass/Vol] 1.0 mg/dL Normal 0.5-1.3 [facility] Comment on above: Performed By: #### 2 005334 #### MIKE [employer] [address] [place] [address] Globulin (S) [Mass/Vol] 2.0 g/dL Normal 2.0-4.0 [facility] Comment on above: Performed By: #### 2 487290 #### MIKE [employer] [address] [place] [address] Glucose [Mass/Vol] 159 mg/dL High 70-99 [facility] Comment on above: Performed By: #### 2 805265 #### MIKE [employer] [address] [place] [address] Potassium [Moles/Vol] 3.7 mmol/L Normal 3.5-5.3 [facility] Comment on above: Performed By: #### 2 614138 #### MIKE [employer] [address] [place] [address] Protein [Mass/Vol] 6.5 g/dL Normal 6.4-8.2 [facility] Comment on above: Performed By: #### 2 367790 #### MIKE [employer] [address] [place] [address] Sodium [Moles/Vol] 143 mmol/L Normal 136-145 [facility] Comment on above: Performed By: #### 2 198812 #### MIKE [employer] [address] [place] [address] Urea nitrogen [Mass/Vol] 19 mg/dL Normal 6-23 [facility] Comment on above: Performed By: #### 2 347672 #### MI[facility] [employer] [address] [place] [address] Urea nitrogen/Creatinine [Mass ratio] 19.0 ratio Normal 5.4-30.0 [facility] Comment on above: Performed By: #### 2 179783 #### [facility]KE [employer] [address] [place] [address] [id number] 07-04-2019 HbA1c (Bld) [Mass fraction] 8.3 % High 4.0-6.3 [facility] Comment on above: Performed By: #### 2 953021 #### MIKE [employer] [address] [place] [address] eGFRon 07-04-2019 GFR/1.73 sq M predicted among non-blacks MDRD (S/P/Bld) [Vol rate/Area] mL/min/{1.73_m2} Normal [facility] Comment on above: Order Comment: Order added by Discern Expert. Performed By: #### 2 [id number] #### MIKE [employer] [address] [place] [address] Auto Diffon 03-03-2019 Basophils (Bld) [#/Vol] 0.1 E3/mcL Normal 0.0-0.2 [facility] Comment on above: Order Comment: Order Added by Discern Expert. Performed By: #### 2 025195 #### MIKE Rodriguez[employer] [address] [place] [address] Basophils/100 WBC (Bld) 1.0 % Normal 0.0-2.0 [facility] Comment on above: Order Comment: Order Added by Discern Expert. Performed By: #### 2 753024 #### MIKE RemHemo [address] [place] [address] Eos Absolute 0.2 E3/mcL Normal 0.0-0.7 [facility] Comment on above: Order Comment: Order Added by Discern Expert. Performed By: #### 2 208241 #### MIKE RemH[employer] [address] [place] [address] Eosinophils/100 WBC (Bld) 2.6 % Normal 0.0-11.0 [facility] Comment on above: Order Comment: Order Added by Discern Expert. Performed By: #### 2 079831 #### MIKE [employer] [address] [place] [address] Lymphocytes (Bld) [#/Vol] 2.0 E3/mcL Normal 1.2-3.4 [facility] Comment on above: Order Comment: Order Added by Discern Expert. Performed By: #### 2 129203 #### MIKE [employer] [address] [place] [address] Lymphocytes/100 WBC (Bld) 26.7 % Normal 20.0-55.0 [facility] Comment on above: Order Comment: Order Added by Discern Expert. Performed By: #### 2 686110 #### MIKE RemH[employer] [address] [place] [address] [place] Absolute 0.7 E3/mcL Normal 0.0-0.7 [facility] Comment on above: Order Comment: Order Added by Discern Expert. Performed By: #### 2 720796 #### MIKE [employer] [address] [place] [address] Monocytes/100 WBC (Bld) 9.4 % Normal 0.0-10.0 [facility] Comment on above: Order Comment: Order Added by Discern Expert. Performed By: #### 2 552103 #### MIKE Rem[employer] [address] [place] [address] Neutro Absolute 4.5 E3/mcL Normal 1.4-6.5 [facility] Comment on above: Order Comment: Order Added by Discern Expert. Performed By: #### 2 587563 #### MIKE Rem[employer] [address] [place] [address] Neutro Auto 60.3 % Normal 37.0-75.0 [facility] Comment on above: Order Comment: Order Added by Discern Expert. Performed By: #### 2 753045 #### MIKE Ackermano [facility] [place] [address] CBC w/ Auto Diffon Erythrocyte distribution width (RBC) [Ratio] 13.2 % Normal 11.5-14.5 [facility] Comment on above: Performed By: #### 2 584083 #### MIKE Ackermano [address] [place], [place] [address] Hematocrit (Bld) [Volume fraction] 41.7 % Low 42.0-52.0 [facility] Comment on above: Performed By: #### 2 280855 #### [place]KE [place] [id number] Hemoglobin (Bld) [Mass/Vol] 14.1 g/dL Normal 13.5-18.0 [facility] Comment on above: Performed By: #### 2 185719 #### MIKE RodriguezHemo [address] [place], [place] [address] MCH (RBC) [Entitic mass] 31.5 pg High 27.0-31.0 [facility] Comment on above: Performed By: #### 2 [id number] #### [place] [id number] MCHC (RBC) [Mass/Vol] 33.7 g/dL Normal 33.0-37.0 [facility] Comment on above: Performed By: #### 2 [id number] #### MIKE RodriguezHemo [address] [place] [address] 76765 MCV (RBC) [Entitic vol] 93.5 fL Normal 78.0-100.0 [facility] Comment on above: Performed By: #### 2 [id number] #### MIKE RodriguezHemo [address] [place] [address] 28056 Platelet mean volume (Bld) [Entitic vol] 10.0 fL Normal 7.4-11.0 [facility] Comment on above: Performed By: #### 2 [id number] #### MIKE RodriguezHemo [address] [place], [place] [id number] Platelets (Bld) [#/Vol] 218 E3/mcL Normal 130-400 [facility] Comment on above: Performed By: #### 2 [id number] #### MIKE RodriguezHemo [address] [place], [place] [id number] RBC (Bld) [#/Vol] 4.46 E6/mcL Normal 3.90-6.10 [facility] Comment on above: Performed By: #### 2 [id number] #### MIKE RemHemo [address] [place], [place] [address] WBC (Bld) [#/Vol] 7.5 E3/mcL Normal 3.6-11.0 [facility] Comment on above: Performed By: #### 2 [id number] #### MIKE JenniferHemo [address] [place], [place] [id number] CMPon 03-03-2019 Albumin [Mass/Vol] 4.1 g/dL Normal 3.4-5.0 [facility] Comment on above: Performed By: #### 2 [id number] #### MIKE [employer] [address] [place], [place] [address] Albumin/Globulin [Mass ratio] 1.6 {ratio} Normal 1.1-1.9 [facility] Comment on above: Performed By: #### 2 [id number] #### MIKE [employer] [address] [place], [place] [address] Alk Phos 83 Int._Unit/L Normal 33-136 [facility] Comment on above: Performed By: #### 2 [id number] #### MIKE [employer] [address] [place], [place] [address] ALT [Catalytic activity/Vol] 13 Int._Unit/L Normal 10-52 [facility] Comment on above: Performed By: #### 2 [id number] #### MIKE [employer] [address] [place], [place] [address] Anion gap [Moles/Vol] 9 mmol/L Low 10-20 [facility] Comment on above: Performed By: #### 2 [id number] #### MIKE [employer] [address] [place], [place] [address] AST [Catalytic activity/Vol] 16 Int._Unit/L Normal 9-39 [facility] Comment on above: Performed By: #### 2 [id number] #### MIKE [employer] [address] [place] [address] 07452 Bili Total 0.55 mg/dL Normal 0.00-1.20 [facility] Comment on above: Performed By: #### 2 [id number] #### MIKE [employer] [address] [place] [address] 44757 Calcium [Mass/Vol] 9.3 mg/dL Normal 8.6-10.3 [facility] Comment on above: Performed By: #### 2 [id number] #### MIKE [employer] [address] [place] [address] 60762 Chloride [Moles/Vol] 105 mmol/L Normal 98-107 [facility] Comment on above: Performed By: #### 2 [id number] #### MIKE [employer] [address] [place] [address] 41284 CO2 [Moles/Vol] 28.0 mmol/L Normal 21.0-32.0 [facility] Comment on above: Performed By: #### 2 [id number] #### MIKE [employer] [address] [place] [address] 54817 Creatinine [Mass/Vol] 1.0 mg/dL Normal 0.5-1.3 [facility] Comment on above: Performed By: #### 2 [id number] #### MIKE [employer] [address] [place] [address] 79253 Globulin (S) [Mass/Vol] 3.0 g/dL Normal 2.0-4.0 [facility] Comment on above: Performed By: #### 2 [id number] #### MIKE [employer] [address] [place] [address] 70420 Glucose [Mass/Vol] 273 mg/dL High 70-99 [facility] Comment on above: Performed By: #### 2 [id number] #### MIKE [employer] [address] [place] [address] 99027 Potassium [Moles/Vol] 4.2 mmol/L Normal 3.5-5.3 [facility] Comment on above: Performed By: #### 2 [id number] #### MIKE [employer] [address] [place] [address] 63944 Protein [Mass/Vol] 6.6 g/dL Normal 6.4-8.2 [facility] Comment on above: Performed By: #### 2 287801 #### MIKE [employer] [address] [place] [address] 88759 Sodium [Moles/Vol] 138 mmol/L Normal 136-145 [facility] Comment on above: Performed By: #### 2 860550 #### MIKE [employer] [address] [place] [address] 24330 Urea nitrogen [Mass/Vol] 20 mg/dL Normal 6-23 [facility] Comment on above: Performed By: #### 2 889571 #### MIKE [employer] [address] [place] [address] 56047 Urea nitrogen/Creatinine [Mass ratio] 20.0 ratio Normal 5.4-30.0 [facility] Comment on above: Performed By: #### 2 783196 #### MIKE [employer] [address] [place] [address] 07168 Free T4on 03-03-2019 Free T4 [Mass/Vol] 0.98 ng/dL Normal 0.58-1.64 [facility] Comment on above: Performed By: #### 2 [id number] #### MIKE [employer] [address] [place] [address] 84149 [id number] 03-03-2019 HbA1c (Bld) [Mass fraction] 8.4 % High 4.0-6.3 [facility] Comment on above: Performed By: #### 2 578339 #### MIKE [employer] [address] [place] [address] 94348 Lipid Profileon 03-03-2019 Cholesterol [Mass/Vol] 164 mg/dL Normal 0-199 [facility] Comment on above: Result Comment: TOTA L CHOLEESTEROL: <200 NORMAL 200 - 239 BORDERLINE HIGH >240 HIGH Performed By: #### 2 [id number] #### MIKE [employer] [facility] [place] [address] Cholesterol in HDL [Mass/Vol] 53 mg/dL Normal 40-60 [facility] Comment on above: Performed By: #### 2 [id number] #### MIKE [employer] [facility] [place] [address] Cholesterol in LDL [Mass/Vol] 98 mg/dL Normal 0-130 [facility] Comment on above: Result Comment: <100 OPTIMAL 100-129 NEAR / ABOVE OPTIMAL 130-159 BORDERLINE HIGH 160-189 HIGH >190 VERY HIGH CALC LDL NOT VALID WHEN TRIGLYCERIDE IS >400 MG/DL Performed By: #### 2 [id number] #### MIKE [employer] [facility] [place] [address] Cholesterol in VLDL [Mass/Vol] 13 mg/dL Normal 0-40 [facility] Comment on above: Performed By: #### 2 [id number] #### MIKE [employer] [facility] [place] [address] Triglyceride [Mass/Vol] 66 mg/dL Normal 0-149 [facility] Comment on above: [...] 200 - 499 Performed By: #### 2 558423 #### MIKE [employer] [address] [place] [address] 57910 Microalb/Creat Ratioon 03-03 Creatinine [Mass/Vol] 111.0 mg/dL Normal 20.0-300.0 [facility] Comment on above: Performed By: #### 1 [id number] #### MIKE [employer] [address] [place] [address] 88681 Creatinine [Mass/Vol] 95 ug/mg High 0-30 [facility] Comment on above: Performed By: #### 1 [id number] #### MIKE [employer] [address] [place] [address] 39420 Ur Microalbumin 10.6 mg/dL High 0.0-1.9 [facility] Comment on above: Performed By: #### 1 [id number] #### MIKE [employer] [address] [place] [address] 10988 TSHon 03-03-2019 TSH Qn 0.52 mcIU/mL Normal 0.30-5.60 [facility] Comment on above: Performed By: #### 2 [id number] #### MIKE [employer] [address] [place] [address] 41440 eGFRon 03-03-2019 GFR/1.73 sq M predicted among non-blacks MDRD (S/P/Bld) [Vol rate/Area] mL/min/{1.73_m2} Normal [facility] Comment on above: Order Comment: Order added by Discern Expert. Performed By: #### 1 [id number] #### MIKE [employer] [address] [place] [address] 85329 XR Spine Lumbosacral Complet e w/ Bendingon 02-08-2019 XR Spine Lumbosacral Complete w/ Bending Exam Date/Time: 02/08/2019 11:16 EDT Reason for Exam: M54.16 Report STUDY: XR Spine Lumbosacral Complete w/ Bending; 02/08/2019 11:16 am INDICATION: M54.16. COMPARISON: 08/12/2018 ACCESSION NUMBER(S): [id number] ORDERING CLINICIAN: Yamilex Muro FINDINGS: 8 views of the lumbar spine including supine and standing AP, lateral and lateral flexion and extension views were obtained. There is no acute fracture identified. There is mild retrolisthesis of L2 on L3 and of L3 on L4. Foji-ug-stiokyhs disc space narrowing and marginal osteophyte formation [...] by: Jaret Walker MD Technologist: GEE Normal [facility] CMPon 11-02-2018 Albumin [Mass/Vol] 4.2 g/dL Normal 3.4-5.0 [facility] Comment on above: Performed By: #### 2 [id number] #### MIKE [employer] [facility] [place] [address] Albumin/Globulin [Mass ratio] 1.8 {ratio} Normal 1.1-1.9 [facility] Comment on above: Performed By: #### 2 627038 #### MIKE [employer] [address] [place] [address] Alk Phos 98 Int._Unit/L Normal 33-136 [facility] Comment on above: Performed By: #### 2 636404 #### MIKE [employer] [address] [place] [address] ALT [Catalytic activity/Vol] 18 Int._Unit/L Normal 10-52 [facility] Comment on above: Performed By: #### 2 167677 #### MIKE [employer] [address] [place] [address] Anion gap [Moles/Vol] 10 mmol/L Normal 10-20 [facility] Comment on above: Performed By: #### 2 [id number] #### MIKE [employer] [address] [place] [address] AST [Catalytic activity/Vol] 17 Int._Unit/L Normal 9-39 [facility] Comment on above: Performed By: #### 2 186509 #### MIKE [employer] [address] [place] [address] Bili Total 0.39 mg/dL Normal 0.00-1.20 [facility] Comment on above: Performed By: #### 2 [id number] #### MIKE [employer] [address] [place] [address] Calcium [Mass/Vol] 9.7 mg/dL Normal 8.6-10.3 [facility] Comment on above: Performed By: #### 2 188702 #### MIKE [employer] [address] [place] [address] Chloride [Moles/Vol] 106 mmol/L Normal 98-107 [facility] Comment on above: Performed By: #### 2 446238 #### MIKE [employer] [address] [place] [address] CO2 [Moles/Vol] 27.0 mmol/L Normal 21.0-32.0 [facility] Comment on above: Performed By: #### 2 [id number] #### [facility] [employer] [address] [place] [address] Creatinine [Mass/Vol] 1.2 mg/dL Normal 0.5-1.3 [facility] Comment on above: Performed By: #### 2 384171 #### MIKE [employer] [address] [place] [address] Globulin (S) [Mass/Vol] 2.0 g/dL Normal 2.0-4.0 [facility] Comment on above: Performed By: #### 2 729370 #### MIKE [employer] [address] [place] [address] Glucose [Mass/Vol] 307 mg/dL High 70-99 [facility] Comment on above: Performed By: #### 2 156026 #### MIKE [employer] [address] [place] [address] Potassium [Moles/Vol] 3.9 mmol/L Normal 3.5-5.3 [facility] Comment on above: Performed By: #### 2 453148 #### MIKE [employer] [facility] [place] [address] Protein [Mass/Vol] 6.5 g/dL Normal 6.4-8.2 [facility] Comment on above: Performed By: #### 2 639216 #### MIKE [employer] [address] [place] [address] Sodium [Moles/Vol] 139 mmol/L Normal 136-145 [facility] Comment on above: Performed By: #### 2 [id number] #### MIKE [employer] [address] [place] [address] Urea nitrogen [Mass/Vol] 23 mg/dL Normal 6-23 [facility] Comment on above: Performed By: #### 2 383805 #### MIKE [employer] [address] [place] [address] Urea nitrogen/Creatinine [Mass ratio] 19.2 ratio Normal 5.4-30.0 [facility] Comment on above: Performed By: #### 2 486066 #### MIKE [employer] [address] [place] [address] [id number] 11-02-2018 HbA1c (Bld) [Mass fraction] 8.4 % High 4.0-6.3 [facility] Comment on above: Performed By: #### 3 [id number] #### MIKE Chemistry Manual Subsection [address] [place] [address] eGFRon 11-02-2018 GFR/1.73 sq M predicted among non-blacks MDRD (S/P/Bld) [Vol rate/Area] mL/min/{1.73_m2} Normal [facility] Comment on above: Order Comment: Order added by Discern Expert. Performed By: #### 1 [id number] #### MIKE [employer] [address] [place] [address] XR Spine Lumbar w/ Obliqueso n 08-13-2018 XR Spine Lumbar w/ Obliques Exam Date/Time: 08/12/2018 14:38 EDT Reason for Exam: low back pain with left sided sciatica Report STUDY: XR Spine Lumbar w/ Obliques; 08/12/2018 2:38 pm INDICATION: low back pain with left sided sciatica. COMPARISON: None. ACCESSION NUMBER(S): [id number] ORDERING CLINICIAN: Nancy Mirza FINDINGS: Five views of the lumbar spine including AP, lateral, lateral cone-down and bilateral oblique views were obtained. There is no acute fracture identified. There is mild retrolisthesis of L2 on L3 and of L3 on L4. Vaxu-bl-atoiajqi disc space narrowing and marginal osteophyte formation [...] by: Jaret Walker MD Technologist: KAVITA Normal [facility] Carotid Duplexon 02-09-2018 Carotid Duplex Non-Invasive Vascular Patient: [facility] Rec#: [id number] (Age): 1945(72y) Study Date: 02/09/2018 Room#: Type: Sex: M Reading: AALIYAH Reading: Flo Abdi DO, RPVI Referring: NANCY MIRZA JOHN [employer] Lieutenant: Christie Trinidad Procedure Info: [id number]... Study Quality: Carotid Duplex: adequate Diagnosis: I65.23 [...] PM EDT Non-Invasive Vascular Patient: [facility] Rec#: [id number] (Age): 1945(72y) Study Date: 02/09/2018 Room#: Type: Sex: M Reading: AALIYAH Reading: Flo Abdi DO, RPVI Referring: NANCY MIRZA JOHN [employer] Lieutenant: Christie Trinidad Procedure Info: [id number]... Study Quality: Carotid Duplex: adequate Diagnosis: I65.23 [...] Flo Abdi DO, JO-ANN Invalid Interpretation Code [facility] Vital Signs Date Time Vital Sign Value Performing Clinician Facility 05-01-2025 11:06-0400 Body height 170.2 cm Maricruz BERMAN DNP Work Phone: [facility] 05-01-2025 11:06-0400 Body mass index (BMI) [Ratio] 22.12 kg/m2 Maricruz BERMAN DNP Work Phone: [facility] 05-01-2025 11:06-0400 Body weight 64.05 kg Maricruz BERMAN DNP Work Phone: [facility] 05-01-2025 11:06-0400 Diastolic blood pressure 68 mm[Hg] Maricruz BERMAN DNP Work Phone: [facility] 05-01-2025 11:06-0400 Heart rate 47 /min Maricruz BERMAN DNP Work Phone: [facility] 05-01-2025 11:06-0400 Systolic blood pressure 142 mm[Hg] Maricruz BERMAN DNP Work Phone: [facility] 04-22-2025 13:43-0400 Body temperature 97.5 [degF] Ryley Jeter MD Work Phone: [facility] 04-22-2025 13:43-0400 Diastolic blood pressure 89 mm[Hg] Ryley Jeter MD Work Phone: [facility] 04-22-2025 13:43-0400 Heart rate 112 /min Ryley Jeter MD Work Phone: [facility] 04-22-2025 13:43-0400 Inhaled oxygen flow rate 2 L/min Ryley Jeter MD Work Phone: [facility] 04-22-2025 13:43-0400 Respiratory rate 18 /min Ryley Jeter MD Work Phone: 3(674)362-003181 [address] 04-22-2025 13:43-0400 SaO2% (BldA) [Mass fraction] 100 % Ryley Jeter MD Work Phone: 8(270)888-315141 [place] [address] 04-22-2025 13:43-0400 Systolic blood pressure 138 mm[Hg] Ryley Jeter MD Work Phone: 2(352)919-220522 [place] [address] 04-22-2025 05:31-0400 Body mass index (BMI) [Ratio] 23.6 kg/m2 Ryley Jeter MD Work Phone: 0(999)537-924441 [place] [address] 04-22-2025 05:31-0400 Body weight 66.45 kg Ryley Jeter MD Work Phone: 0(354)311-176781 [address] 04-19-2025 11:24-0400 Body height 167.64 cm Ryley Jeter MD Work Phone: 3(698)711-760781 [address] 04-19-2025 09:21-0400 Inhaled oxygen concentration 45 % Ryley Jeter MD Work Phone: [facility] 04-19-2025 03:00-0400 Body temperature 97.7 [degF] Ryley Jeter MD Work Phone: 7(503)556-884081 [address] 04-19-2025 03:00-0400 Diastolic blood pressure 54 mm[Hg] Ryley Jeter MD Work Phone: [facility] 04-19-2025 03:00-0400 Heart rate 97 /min Ryley Jeter MD Work Phone: [facility] 04-19-2025 03:00-0400 Inhaled oxygen flow rate 50 L/min Ryley Jeter MD Work Phone: [facility] 04-19-2025 03:00-0400 Respiratory rate 16 /min Ryley Jeter MD Work Phone: [facility] 04-19-2025 03:00-0400 SaO2% (BldA) [Mass fraction] 98 % Ryley Jeter MD Work Phone: [facility] 04-19-2025 03:00-0400 Systolic blood pressure 134 mm[Hg] Ryley Jeter MD Work Phone: [facility] 04-19-2025 00:50-0400 Inhaled oxygen concentration 50 % Ryley Jeter MD Work Phone: 7(895)917-128641 [place] [address] 04-19-2025 00:00-0400 Body height 170.18 cm Ryley Jeter MD Work Phone: 8(599)618-068581 [address] 04-19-2025 00:00-0400 Body mass index (BMI) [Ratio] 24.4 kg/m2 Ryley Jeter MD Work Phone: [facility] 04-19-2025 00:00-0400 Body weight 70.76 kg Ryley Jeter MD Work Phone: [facility] 04-10-2025 15:10-0400 Diastolic blood pressure 78 mm[Hg] Ryley Jeter MD Work Phone: 6(996)924-486641 [place] [address] 04-10-2025 15:10-0400 Heart rate 80 /min Ryley Jeter MD Work Phone: [facility] 04-10-2025 15:10-0400 Systolic blood pressure 144 mm[Hg] Ryley Jeter MD Work Phone: [facility] 04-10-2025 15:00-0400 Body temperature 98.1 [degF] Ryley Jeter MD Work Phone: [facility] 04-10-2025 15:00-0400 SaO2% (BldA) [Mass fraction] 95 % Ryley Jeter MD Work Phone: [facility] 04-10-2025 13:39-0400 Respiratory rate 16 /min Ryley Jeter MD Work Phone: [facility] 04-10-2025 09:38-0400 Inhaled oxygen flow rate 2 L/min Ryley Jeter MD Work Phone: [facility] 04-10-2025 09:38-0400 SaO2% (BldA) [Mass fraction] 98 % Ryley Jeter MD Work Phone: [facility] 04-10-2025 08:45-0400 Body temperature 97.9 [degF] Ryley Jeter MD Work Phone: [facility] 04-10-2025 03:42-0400 Body mass index (BMI) [Ratio] 22.3 kg/m2 Ryley Jeter MD Work Phone: 9(773)204-869241 [place] [address] 04-10-2025 03:42-0400 Body weight 64.7 kg Ryley Jeter MD Work Phone: [facility] 04-10-2025 00:32-0400 Inhaled oxygen concentration 30 % Ryley Jeter MD Work Phone: [facility] 04-09-2025 14:07-0400 Body height 170.18 cm Ryley Jeter MD Work Phone: [facility] 04-03-2025 05:40-0400 Heart rate 110 /min Ryley Jeter MD Work Phone: [facility] 04-03-2025 05:40-0400 Inhaled oxygen concentration 30 % Ryley Jeter MD Work Phone: [facility] 04-03-2025 05:40-0400 Respiratory rate 21 /min Ryley Jeter MD Work Phone: [facility] 04-03-2025 05:40-0400 SaO2% (BldA) [Mass fraction] 98 % Ryley Jeter MD Work Phone: [facility] 04-03-2025 05:17-0400 Body height 170.18 cm Ryley Jeter MD Work Phone: [facility] 04-03-2025 05:17-0400 Body mass index (BMI) [Ratio] 21.2 kg/m2 Ryley Jeter MD Work Phone: [facility] 04-03-2025 05:17-0400 Body temperature 98 [degF] Ryley Jeter MD Work Phone: [facility] 04-03-2025 05:17-0400 Body weight 61.5 kg Ryley Jeter MD Work Phone: [facility] 04-03-2025 05:17-0400 Diastolic blood pressure 77 mm[Hg] Ryley Jeter MD Work Phone: [facility] 04-03-2025 05:17-0400 Systolic blood pressure 167 mm[Hg] Ryley Jeter MD Work Phone: [facility] 04-03-2025 03:00-0400 Inhaled oxygen flow rate 4 L/min Ryley Jeter MD Work Phone: [facility] 03-12-2025 13:50-0400 Body mass index (BMI) [Ratio] 21.9 kg/m2 Paty Ortega [employer] Work Phone: [facility] 03-12-2025 13:50-0400 Body weight 63.41 kg Paty Ortega [employer] Work Phone: [facility] 03-12-2025 13:50-0400 Diastolic blood pressure 61 mm[Hg] Paty Ortega [employer]LO[employer]SEM[employer] Work Phone: [facility] 03-12-2025 13:50-0400 Heart rate 69 /min Paty Ortega [employer] Work Phone: [facility] 03-12-2025 13:50-0400 Systolic blood pressure 166 mm[Hg] Paty Ortega [employer]LO[employer]SEM[employer]ER Work Phone: [facility] 03-09-2025 09:42-0400 Body height 170.2 cm Woo Small MD Work Phone: [facility] 03-09-2025 09:42-0400 Body mass index (BMI) [Ratio] 21.9 kg/m2 Woo Small MD Work Phone: [facility] 03-09-2025 09:42-0400 Body weight 63.41 kg Woo Small MD Work Phone: [facility] 03-09-2025 09:42-0400 Diastolic blood pressure 54 mm[Hg] Woo Small MD Work Phone: [facility] 03-09-2025 09:42-0400 Heart rate 73 /min Woo Small MD Work Phone: [facility] 03-09-2025 09:42-0400 SaO2% (BldA) [Mass fraction] 98 % Woo Small MD Work Phone: [facility] 03-09-2025 09:42-0400 Systolic blood pressure 172 mm[Hg] Woo Small MD Work Phone: [facility] 02-26-2025 13:01-0400 Body height 172.7 cm Ayanna Albert DO Work Phone: [facility] 02-26-2025 13:01-0400 Body mass index (BMI) [Ratio] 21.47 kg/m2 Ayanna Albert DO Work Phone: [facility] 02-26-2025 13:01-0400 Body weight 64.05 kg Ayanna Albert DO Work Phone: [facility] 02-26-2025 13:01-0400 Diastolic blood pressure 68 mm[Hg] Ayanna Albert DO Work Phone: [facility] 02-26-2025 13:01-0400 Heart rate 72 /min Ayanna Albert DO Work Phone: [facility] 02-26-2025 13:01-0400 Systolic blood pressure 158 mm[Hg] Ayanna Albert DO Work Phone: [facility] 11-14-2024 10:44-0500 Diastolic blood pressure 61 mm[Hg] Woo Small MD Work Phone: [facility] 11-14-2024 10:44-0500 Heart rate 57 /min Woo Work Phone: [facility] 11-14-2024 10:44-0500 SaO2% (BldA) [Mass fraction] 96 % Work Phone: [facility] 11-14-2024 10:44-0500 Systolic blood pressure 185 mm[Hg] Woo Work Phone: [facility] 11-14-2024 10:37-0500 Body height 170.2 cm Woo Work Phone: [facility] 11-14-2024 10:37-0500 Body mass index (BMI) [Ratio] 23.57 kg/m2 Work Phone: [facility] 11-14-2024 10:37-0500 Body weight 68.27 kg Woo Work Phone: [facility] 11-13-2024 11:16-0500 Body mass index (BMI) [Ratio] 23.45 kg/m2 Paty Ortega [employer]LO[employer]SEM[employer]ER Work Phone: [facility] 11-13-2024 11:16-0500 Body weight 67.9 kg Paty Ortega [employer]LO[employer]SEM[employer]ER Work Phone: [facility] 11-13-2024 11:16-0500 Diastolic blood pressure 51 mm[Hg] Paty Ortega [employer]LO[employer] ASSEM[employer]ER Work Phone: [facility] 11-13-2024 11:16-0500 Heart rate 71 /min Paty Ortega [employer]LO[employer] ASSEM[employer]ER Work Phone: [facility] 11-13-2024 11:16-0500 Systolic blood pressure 107 mm[Hg] Paty Ortega [employer]LO[employer] ASSEM[employer]ER Work Phone: [facility] 11-09-2024 10:42-0500 Diastolic blood pressure 64 mm[Hg] Kristy Parker MD Work Phone: [facility] 11-09-2024 10:42-0500 Heart rate 58 /min Kristy Parker MD Work Phone: [facility] 11-09-2024 10:42-0500 Systolic blood pressure 160 mm[Hg] Kristy Parker MD Work Phone: [facility] 11-09-2024 10:32-0500 Body height 170.2 cm Kristy Parker MD Work Phone: [facility] 11-09-2024 10:32-0500 Body mass index (BMI) [Ratio] 23.18 kg/m2 Kristy Parker MD Work Phone: [facility] 11-09-2024 10:32-0500 Body weight 67.13 kg Kristy Parker MD Work Phone: [facility] 11-07-2024 09:54-0500 Diastolic blood pressure 61 mm[Hg] Brock Groves MD Work Phone: [facility] 11-07-2024 09:54-0500 Systolic blood pressure 143 mm[Hg] Brock Groves MD Work Phone: [facility] [facility] 11-07-2024 09:51-0500 Body height 170.2 cm Brock Groves MD Work Phone: [facility] 11-07-2024 09:51-0500 Body mass index (BMI) [Ratio] 23.02 kg/m2 Brock Groves MD Work Phone: [facility] 11-07-2024 09:51-0500 Body temperature 97.39 [degF] Brock Groves MD Work Phone: [facility] 11-07-2024 09:51-0500 Body weight 66.68 kg Brock Groves MD Work Phone: [facility] 11-07-2024 09:51-0500 Heart rate 63 /min Brock Groves MD Work Phone: [facility] 11-07-2024 09:51-0500 SaO2% (BldA) [Mass fraction] 100 % Brock Groves MD Work Phone: [facility] 10-28-2024 11:06-0500 Diastolic blood pressure 51 mm[Hg] Nidia Garay MD Work Phone: [facility] 10-28-2024 11:06-0500 Heart rate 68 /min Nidia Garay MD Work Phone: [facility] 10-28-2024 11:06-0500 Respiratory rate 14 /min Nidia Garay MD Work Phone: [facility] 10-28-2024 11:06-0500 SaO2% (BldA) [Mass fraction] 94 % Nidia Garay MD Work Phone: [facility] 10-28-2024 11:06-0500 Systolic blood pressure 153 mm[Hg] Nidia Garay MD Work Phone: [facility] 10-28-2024 07:24-0500 Body temperature 97.59 [degF] Nidia Garay MD Work Phone: [facility] 10-28-2024 05:11-0500 Body mass index (BMI) [Ratio] 22.44 kg/m2 Nidia Garay MD Work Phone: [facility] 10-28-2024 05:11-0500 Body weight 65 kg Nidia Garay MD Work Phone: [facility] 10-27-2024 16:36-0500 Body height 170.2 cm Nidia Garay MD Work Phone: [facility] 10-27-2024 14:18-0500 SaO2% (BldA) [Mass fraction] 97.3 % Nidia Garay MD Work Phone: [facility] 10-18-2024 13:46-0500 Diastolic blood pressure 61 mm[Hg] Woo Small MD Work Phone: [facility] 10-18-2024 13:46-0500 Heart rate 67 /min Woo Small MD Work Phone: [facility] 10-18-2024 13:46-0500 SaO2% (BldA) [Mass fraction] 100 % Woo Small MD Work Phone: [facility] 10-18-2024 13:46-0500 Systolic blood pressure 103 mm[Hg] Woo Small MD Work Phone: [facility] 10-18-2024 13:27-0500 Body height 172.7 cm Woo Small MD Work Phone: [facility] 10-18-2024 13:27-0500 Body mass index (BMI) [Ratio] 22.52 kg/m2 Woo Small MD Work Phone: [facility] 10-18-2024 13:27-0500 Body weight 67.18 kg Woo Small MD Work Phone: [facility] 08-29-2024 13:04-0400 Diastolic blood pressure 72 mm[Hg] Ayanna Young DO Work Phone: [facility] 08-29-2024 13:04-0400 Systolic blood pressure 168 mm[Hg] Ayanna Young DO Work Phone: [facility] 08-29-2024 12:57-0400 Body height 172.7 cm Ayanna Young DO Work Phone: [facility] 08-29-2024 12:57-0400 Body mass index (BMI) [Ratio] 22.72 kg/m2 Ayanna Young DO Work Phone: [facility] 08-29-2024 12:57-0400 Body weight 67.77 kg Ayanna Young DO Work Phone: [facility] 08-29-2024 12:57-0400 Heart rate 64 /min Ayanna Young DO Work Phone: [facility] 07-21-2024 14:12-0400 Diastolic blood pressure 68 mm[Hg] Paty Ortega FLOOR ASSEMBLER Work Phone: [facility] 07-21-2024 14:12-0400 Systolic blood pressure 166 mm[Hg] Paty Oretga FLOOR ASSEMBLER Work Phone: [facility] 07-21-2024 13:38-0400 Body mass index (BMI) [Ratio] 22.44 kg/m2 Patyeduar Ortega CNP Work Phone: [facility] 07-21-2024 13:38-0400 Body weight 66.95 kg Paty Jordan HUDSON Work Phone: [facility] 07-21-2024 13:38-0400 Heart rate 69 /min Paty Jordan HUDSON Work Phone: [facility] 04-24-2024 10:09-0400 Diastolic blood pressure 70 mm[Hg] Woo Nini URIBE Work Phone: [facility] Comment on above: Manual 04-24-2024 10:09-0400 Systolic blood pressure 150 mm[Hg] Woomert Small MD Work Phone: [facility] Comment on above: Manual 04-24-2024 09:44-0400 Body height 172.7 cm Woomert Small MD Work Phone: [facility] 04-24-2024 09:44-0400 Body mass index (BMI) [Ratio] 22.43 kg/m2 Woomert Small MD Work Phone: [facility] 04-24-2024 09:44-0400 Body weight 66.91 kg Woomert Small MD Work Phone: [facility] 04-24-2024 09:44-0400 Heart rate 53 /min Woomert Small MD Work Phone: [facility] 04-24-2024 09:44-0400 SaO2% (BldA) [Mass fraction] 96 % Woo Nini URIBE Work Phone: [facility] 02-24-2024 13:44-0400 Body height 172.7 cm Maricruz BERMAN DNP Work Phone: [facility] 02-24-2024 13:44-0400 Body mass index (BMI) [Ratio] 23.11 kg/m2 Maricruz BERMAN DNP Work Phone: [facility] 02-24-2024 13:44-0400 Body weight 68.95 kg Maricruz Albert APRN-FLOOR ASSEMBLER, DNP Work Phone: [facility] 02-24-2024 13:44-0400 Diastolic blood pressure 68 mm[Hg] Maricruz Albert APRN-FLOOR ASSEMBLER, DNP Work Phone: [facility] 02-24-2024 13:44-0400 Heart rate 76 /min Maricruz Albert APRN-FLOOR ASSEMBLER, DNP Work Phone: [facility] 02-24-2024 13:44-0400 Systolic blood pressure 142 mm[Hg] Maricruz Albert APRN-FLOOR ASSEMBLER, DNP Work Phone: [facility] 02-18-2024 12:48-0400 Body mass index (BMI) [Ratio] 23.11 kg/m2 Paty Ortega FLOOR ASSEMBLER Work Phone: [facility] 02-18-2024 12:48-0400 Body weight 68.95 kg Paty Ortega FLOOR ASSEMBLER Work Phone: [facility] 02-18-2024 12:48-0400 Diastolic blood pressure 79 mm[Hg] Paty Ortega FLOOR ASSEMBLER Work Phone: [facility] 02-18-2024 12:48-0400 Heart rate 67 /min Paty Ortega FLOOR ASSEMBLER Work Phone: [facility] 02-18-2024 12:48-0400 Systolic blood pressure 131 mm[Hg] Paty Ortega FLOOR ASSEMBLER Work Phone: [facility] 01-14-2024 11:02-0400 Body height 172.7 cm Aylin Lacy FLOOR ASSEMBLER Work Phone: [facility] 01-14-2024 11:02-0400 Body mass index (BMI) [Ratio] 24.01 kg/m2 Aylin Lacy FLOOR ASSEMBLER Work Phone: [facility] 01-14-2024 11:02-0400 Body weight 71.62 kg Aylin Lacy [employer]LOOR ASSEMBLER Work Phone: [facility] 01-14-2024 11:02-0400 Diastolic blood pressure 78 mm[Hg] Aylin Lacy FLOOR ASSEMBLER Work Phone: [facility] 01-14-2024 11:02-0400 Heart rate 70 /min Aylin Lacy FLOOR ASSEMBLER Work Phone: [facility] 01-14-2024 11:02-0400 SaO2% (BldA) [Mass fraction] 94 % Aylin Lacy FLOOR ASSEMBLER Work Phone: [facility] 01-14-2024 11:02-0400 Systolic blood pressure 139 mm[Hg] Aylin Lacy FLOOR ASSEMBLER Work Phone: [facility] 12-01-2023 08:00-0500 Body temperature 97.9 [degF] Kathleen Story MD Work Phone: [facility] 12-01-2023 08:00-0500 Diastolic blood pressure 73 mm[Hg] Kathleen Story MD Work Phone: [facility] 12-01-2023 08:00-0500 Heart rate 91 /min Kathleen Story MD Work Phone: [facility] 12-01-2023 08:00-0500 Respiratory rate 18 /min Kathleen Story MD Work Phone: [facility] 12-01-2023 08:00-0500 SaO2% (BldA) [Mass fraction] 94 % Kathleen Story MD Work Phone: [facility] 12-01-2023 08:00-0500 Systolic blood pressure 134 mm[Hg] Kathleen Story MD Work Phone: [facility] 12-01-2023 06:00-0500 Body mass index (BMI) [Ratio] 23.96 kg/m2 Kathleen Story MD Work Phone: [facility] 12-01-2023 06:00-0500 Body weight 69.4 kg Kathleen Story MD Work Phone: [facility] 11-27-2023 04:06-0500 SaO2% (BldA) [Mass fraction] 96.0 % Kathleen Story MD Work Phone: [facility] 11-27-2023 03:00-0500 Body height 170.2 cm Kathleen Story MD Work Phone: [facility] 11-27-2023 01:39-0500 Diastolic blood pressure 79 mm[Hg] Ger Bansal DO Work Phone: 0(852)[phone] [place] [address] 11-27-2023 01:39-0500 Heart rate 77 /min Ger Bansal DO Work Phone: 7(923)[phone] [place] [address] 11-27-2023 01:39-0500 Respiratory rate 20 /min Ger Bansal DO Work Phone: 1(444)[phone] [place] [address] 11-27-2023 01:39-0500 SaO2% (BldA) [Mass fraction] 95 % Ger Bansal DO Work Phone: 2(756)[phone] [place] [address] 11-27-2023 01:39-0500 Systolic blood pressure 148 mm[Hg] Ger Bansal DO Work Phone: 3(280)[phone] [place] [address] 11-26-2023 21:22-0500 Body height 172.7 cm Ger Bansal DO Work Phone: 0(676)[phone] [place] [address] 11-26-2023 21:22-0500 Body mass index (BMI) [Ratio] 22.5 kg/m2 Ger Bansal DO Work Phone: 7(563)[phone] [place] [address] 11-26-2023 21:22-0500 Body temperature 97.11 [degF] Ger Bansal DO Work Phone: 8(245)[phone] [place] [address] 11-26-2023 21:22-0500 Body weight 67.13 kg Ger Bansal DO Work Phone: 9(032)[phone] [place] [address] 10-21-2023 08:54-0500 Body height 172.7 cm Woo Small MD Work Phone: [facility] 10-21-2023 08:54-0500 Body mass index (BMI) [Ratio] 22.61 kg/m2 Woo Small MD Work Phone: [facility] 10-21-2023 08:54-0500 Body weight 67.45 kg Woo Small MD Work Phone: [facility] 10-21-2023 08:54-0500 Diastolic blood pressure 67 mm[Hg] Woo Small MD Work Phone: [facility] 10-21-2023 08:54-0500 Heart rate 65 /min Woo Small MD Work Phone: [facility] 10-21-2023 08:54-0500 SaO2% (BldA) [Mass fraction] 99 % Woo Small MD Work Phone: [facility] 10-21-2023 08:54-0500 Systolic blood pressure 128 mm[Hg] Woo Small MD Work Phone: [facility] 10-13-2023 11:55-0500 SaO2% (BldA) [Mass fraction] 92 % Praful Pineda MD Work Phone: [facility] 10-13-2023 10:39-0500 Heart rate 97 /min Praful Pineda MD Work Phone: [facility] 10-13-2023 09:35-0500 Body height 171.5 cm Praful Pineda MD Work Phone: [facility] 10-13-2023 09:35-0500 Body mass index (BMI) [Ratio] 24.38 kg/m2 Praful Pineda MD Work Phone: [facility] 10-13-2023 09:35-0500 Body weight 71.7 kg Praful Pineda MD Work Phone: [facility] 10-12-2023 20:45-0500 Body temperature 98.1 [degF] Praful Pineda MD Work Phone: [facility] 10-12-2023 20:45-0500 Diastolic blood pressure 85 mm[Hg] Praful Pineda MD Work Phone: [facility] 10-12-2023 20:45-0500 Respiratory rate 16 /min Praful Pineda MD Work Phone: [facility] 10-12-2023 20:45-0500 Systolic blood pressure 123 mm[Hg] Praful Pineda MD Work Phone: [facility] 10-11-2023 01:56-0500 Body temperature 37.0 Praful Pineda MD Work Phone: [facility] 10-11-2023 01:56-0500 SaO2% (BldA) [Mass fraction] 93 % Praful Pineda MD Work Phone: [facility] 10-08-2023 11:12-0500 Diastolic blood pressure 66 mm[Hg] Mary Vargas MD Work Phone: [facility] 10-08-2023 11:12-0500 Heart rate 67 /min Mary Vargas MD Work Phone: [facility] 10-08-2023 11:12-0500 Systolic blood pressure 199 mm[Hg] Mary Vargas MD Work Phone: [facility] 10-08-2023 11:05-0500 Body mass index (BMI) [Ratio] 24.18 kg/m2 Mary Vargas MD Work Phone: [facility] 10-08-2023 11:05-0500 Body weight 72.12 kg Mary Vargas MD Work Phone: [facility] 08-25-2023 14:11-0400 Body weight 72.12 kg Ayanna Albert DO Work Phone: [facility] 08-25-2023 14:11-0400 Diastolic blood pressure 62 mm[Hg] Ayanna Albert DO Work Phone: [facility] 08-25-2023 14:11-0400 Heart rate 62 /min Ayanna Albert DO Work Phone: [facility] 08-25-2023 14:11-0400 Systolic blood pressure 144 mm[Hg] Ayanna Albert Work Phone: [facility] 07-27-2023 14:48-0400 Diastolic blood pressure 78 mm[Hg] Nancy Mirza Work Phone: [facility] Work Phone: 07-27-2023 14:48-0400 Systolic blood pressure 152 mm[Hg] Nancy Mirza Work Phone: [facility] Work Phone: 07-27-2023 14:45-0400 Body height 172.72 cm Nancy Mirza Work Phone: [facility] Work Phone: 07-27-2023 14:45-0400 Body mass index (BMI) [Ratio] 24.05 kg/m2 Nancy Mirza Work Phone: [facility] Work Phone: 07-27-2023 14:45-0400 Body surface area Derived from formula 1.85 m2 Nancy Mirza Work Phone: [facility] Work Phone: 07-27-2023 14:45-0400 Body weight 71.76 kg Nancy Mirza Work Phone: [facility] Work Phone: 07-27-2023 14:45-0400 Diastolic blood pressure 88 mm[Hg] Nancy Mirza Work Phone: [facility] Work Phone: 07-27-2023 14:45-0400 Heart rate 70 /min Nancy Mirza Work Phone: [facility] Work Phone: 07-27-2023 14:45-0400 SaO2% (BldA) [Mass fraction] 97 % Nancy Tabareszonia Work Phone: [facility] Work Phone: 07-27-2023 14:45-0400 Systolic blood pressure 160 mm[Hg] Nancy Tabareszonia Work Phone: [facility] Work Phone: 02-19-2023 13:02-0400 Body mass index (BMI) [Ratio] 24.33 kg/m2 Paty Ortega FLOOR ASSEMBLER Work Phone: [facility] 02-19-2023 13:02-0400 Body weight 72.58 kg Paty Ortega FLOOR ASSEMBLER Work Phone: [facility] 02-19-2023 13:02-0400 Diastolic blood pressure 83 mm[Hg] Paty Ortega FLOOR ASSEMBLER Work Phone: [facility] 02-19-2023 13:02-0400 Heart rate 73 /min Paty Ortega FLOOR ASSEMBLER Work Phone: [facility] 02-19-2023 13:02-0400 Systolic blood pressure 116 mm[Hg] Paty Ortega FLOOR ASSEMBLER Work Phone: [facility] 10-19-2022 10:01-0500 Diastolic blood pressure 69 mm[Hg] Paty Ortega FLOOR ASSEMBLER Work Phone: [facility] 10-19-2022 10:01-0500 Heart rate 89 /min Paty Ortega FLOOR ASSEMBLER Work Phone: [facility] 10-19-2022 10:01-0500 Systolic blood pressure 149 mm[Hg] Paty Ortega FLOOR ASSEMBLER Work Phone: [facility] 10-19-2022 09:56-0500 Body mass index (BMI) [Ratio] 24.04 kg/m2 Paty Ortega FLOOR ASSEMBLER Work Phone: [facility] 10-19-2022 09:56-0500 Body weight 71.71 kg Paty Ortega FLOOR ASSEMBLER Work Phone: [facility] 06-19-2022 10:04-0400 Diastolic blood pressure 90 mm[Hg] Paty Ortega FLOOR ASSEMBLER Work Phone: [facility] 06-19-2022 10:04-0400 Systolic blood pressure 184 mm[Hg] Paty Ortega FLOOR ASSEMBLER Work Phone: [facility] 06-19-2022 09:40-0400 Heart rate 72 /min Paty Ortega FLOOR ASSEMBLER Work Phone: [facility] 06-19-2022 09:36-0400 Body height 172.7 cm Paty Ortega FLOOR ASSEMBLER Work Phone: [facility] 06-19-2022 09:36-0400 Body mass index (BMI) [Ratio] 24.48 kg/m2 Patyeduar Ortega FLOOR ASSEMBLER Work Phone: [facility] 06-19-2022 09:36-0400 Body weight 73.03 kg Paty Ortega FLOOR ASSEMBLER Work Phone: [facility] 02-13-2022 11:13-0400 Diastolic blood pressure 74 mm[Hg] Mary Vargas MD Work Phone: [facility] 02-13-2022 11:13-0400 Systolic blood pressure 138 mm[Hg] Mary Vargas MD Work Phone: [facility] 02-13-2022 11:09-0400 Body height 172.7 cm Mary Vargas MD Work Phone: [facility] 02-13-2022 11:09-0400 Body mass index (BMI) [Ratio] 25.09 kg/m2 Mary Vargas MD Work Phone: [facility] 02-13-2022 11:09-0400 Body weight 74.84 kg Mary Vagras MD Work Phone: [facility] 02-13-2022 11:09-0400 Heart rate 71 /min Mary Vargas MD Work Phone: [facility] 10-13-2021 14:07-0500 Diastolic blood pressure 72 mm[Hg] Paty Ortega FLOOR ASSEMBLER Work Phone: [facility] 10-13-2021 14:07-0500 Heart rate 74 /min Paty Ortega FLOOR ASSEMBLER Work Phone: [facility] 10-13-2021 14:07-0500 Systolic blood pressure 163 mm[Hg] Paty Ortega FLOOR ASSEMBLER Work Phone: [facility] 10-13-2021 13:59-0500 Body mass index (BMI) [Ratio] 24.89 kg/m2 Paty Ortega FLOOR ASSEMBLER Work Phone: [facility] 10-13-2021 13:59-0500 Body weight 74.25 kg Paty Ortega FLOOR ASSEMBLER Work Phone: [facility] 06-20-2021 14:38-0400 Diastolic blood pressure 68 mm[Hg] Paty Ortega FLOOR ASSEMBLER Work Phone: [facility] 06-20-2021 14:38-0400 Heart rate 70 /min Paty Ortega FLOOR ASSEMBLER Work Phone: [facility] 06-20-2021 14:38-0400 Systolic blood pressure 163 mm[Hg] Paty Ortega FLOOR ASSEMBLER Work Phone: [facility] 06-20-2021 14:33-0400 Body height 172.7 cm Paty Ortega FLOOR ASSEMBLER Work Phone: [facility] 06-20-2021 14:33-0400 Body mass index (BMI) [Ratio] 25.32 kg/m2 Paty Ortega FLOOR ASSEMBLER Work Phone: [facility] 06-20-2021 14:33-0400 Body weight 75.52 kg Paty Ortega FLOOR ASSEMBLER Work Phone: [facility] 02-18-2021 15:24-0400 Body height 172.7 cm Mary Vargas MD Work Phone: [facility] 02-18-2021 15:24-0400 Body mass index (BMI) [Ratio] 25.54 kg/m2 Mary Vargas MD Work Phone: [facility] 02-18-2021 15:24-0400 Body weight 76.2 kg Mary Vargas MD Work Phone: [facility] 02-18-2021 15:24-0400 Diastolic blood pressure 70 mm[Hg] Mary Vargas MD Work Phone: [facility] 02-18-2021 15:24-0400 Heart rate 76 /min Mary Vargas MD Work Phone: [facility] 02-18-2021 15:24-0400 Systolic blood pressure 194 mm[Hg] Mary Vargas MD Work Phone: [facility] 10-18-2020 13:36-0500 BMI (Body Mass Index) 25.54 kg/m2 [facility] 10-18-2020 13:36-0500 Body weight 76.2 kg [facility] 10-18-2020 13:36-0500 BP Diastolic 69 mm[Hg] [facility] 10-18-2020 13:36-0500 BP Systolic 163 mm[Hg] [facility] 10-18-2020 13:36-0500 Height 172.7 cm [facility] 10-18-2020 13:36-0500 Pulse (Heart Rate) 72 /min [facility] 06-18-2020 10:01-0400 BMI (Body Mass Index) 25.39 kg/m2 [facility] 06-18-2020 10:01-0400 Body weight 75.75 kg [facility] 06-18-2020 10:01-0400 BP Diastolic 71 mm[Hg] [facility] 06-18-2020 10:01-0400 BP Systolic 172 mm[Hg] [facility] 06-18-2020 10:01-0400 Height 172.7 cm [facility] 06-18-2020 10:01-0400 Pulse (Heart Rate) 72 /min [facility] 11-16-2019 10:40-0500 BMI (Body Mass Index) 25.09 kg/m2 [facility] 11-16-2019 10:40-0500 Body weight 74.84 kg Paty Ortega [facility] 11-16-2019 10:40-0500 BP Diastolic 68 mm[Hg] Paty rOtega [facility] 11-16-2019 10:40-0500 BP Systolic 178 mm[Hg] Paty Ortega [facility] 11-16-2019 10:40-0500 Height 172.7 cm Paty Ortega [facility] 11-16-2019 10:40-0500 Pulse (Heart Rate) 75 /min Paty Ortega [facility] 07-17-2019 10:48-0400 BMI (Body Mass Index) 25.09 kg/m2 Keeley Patton [facility] 07-17-2019 10:48-0400 Body weight 74.84 kg Keeley Patton [facility] 07-17-2019 10:48-0400 BP Diastolic 69 mm[Hg] Keeley Patton [facility] 07-17-2019 10:48-0400 BP Systolic 152 mm[Hg] Keeley Patton [facility] 07-17-2019 10:48-0400 Height 172.7 cm Keeleymarlene Patton [facility] 07-17-2019 10:48-0400 Pulse (Heart Rate) 71 /min Keeley Patton [facility] 03-13-2019 12:07-0400 BMI (Body Mass Index) 25.24 kg/m2 Mary Vargas [facility] 03-13-2019 12:07-0400 Body weight 75.3 kg Mary Vargas [facility] 03-13-2019 12:07-0400 BP Diastolic 67 mm[Hg] Mary Vargas [facility] 03-13-2019 12:07-0400 BP Systolic 160 mm[Hg] Mary Vargas [facility] 03-13-2019 12:07-0400 Height 172.7 cm Mary Vargas [facility] 03-13-2019 12:07-0400 Pulse (Heart Rate) 72 /min Mary Vargas [facility] 11-11-2018 11:08-0500 BMI (Body Mass Index) 26 kg/m2 Keeley Patton [facility] 11-11-2018 11:08-0500 BP Diastolic 74 mm[Hg] Keeley Patton [facility] 11-11-2018 11:08-0500 BP Systolic 172 mm[Hg] Keeley Patton [facility] 11-11-2018 11:08-0500 Height 172.7 cm Keeley Patton [facility] 11-11-2018 11:08-0500 Pulse (Heart Rate) 71 /min Keeley Patton [facility] 11-11-2018 11:08-0500 Weight 77.56 kg Keeley Patton [facility] 07-05-2018 10:05-0400 BMI (Body Mass Index) 25.48 kg/m2 [facility] 07-05-2018 10:05-0400 BP Diastolic 58 mm[Hg] [facility] 07-05-2018 10:05-0400 BP Systolic 130 mm[Hg] [facility] 07-05-2018 10:05-0400 Height 172.7 cm [facility] 07-05-2018 10:05-0400 Pulse (Heart Rate) 84 /min [facility] 07-05-2018 10:05-0400 Weight 76.02 kg [facility] 02-28-2018 10:14-0400 BMI (Body Mass Index) 26.15 kg/m2 [facility] 02-28-2018 10:14-0400 BP Diastolic 64 mm[Hg] [facility] 02-28-2018 10:14-0400 BP Systolic 154 mm[Hg] [facility] 02-28-2018 10:14-0400 Height 172.7 cm [facility] 02-28-2018 10:14-0400 Pulse (Heart Rate) 76 /min [facility] 02-28-2018 10:14-0400 Weight 78.02 kg [facility] 10-29-2017 10:08-0500 BMI (Body Mass Index) 25.24 kg/m2 Mary Vargas [facility] Work Phone: 10-29-2017 10:08-0500 BP Diastolic 64 mm[Hg] Marymarquise Vargas [facility] Work Phone: 10-29-2017 10:08-0500 BP Systolic 142 mm[Hg] Mary Vargas [facility] Work Phone: 10-29-2017 10:08-0500 Height 172.7 cm Mary Vargas [facility] Work Phone: 10-29-2017 10:08-0500 Pulse (Heart Rate) 72 /min Mary Vargas [facility] Work Phone: 10-29-2017 10:08-0500 Weight 75.3 kg Mary Vargas [facility] Work Phone: 06-17-2017 11:04-0400 BMI (Body Mass Index) 24.78 kg/m2 Ya Parker [facility] Work Phone: 06-17-2017 11:04-0400 BP Diastolic 62 mm[Hg] Ya Parker [facility] Work Phone: 06-17-2017 11:04-0400 BP Systolic 148 mm[Hg] Ya Parker [facility] Work Phone: 06-17-2017 11:04-0400 Height 172.7 cm Ya Parker [facility] Work Phone: 06-17-2017 11:04-0400 Pulse (Heart Rate) 64 /min Ya Parker [facility] Work Phone: 06-17-2017 11:04-0400 Weight 73.94 kg Ya Parker [facility] Work Phone: Encounters Encounter Date Encounter Type Care Provider Facility Start: 05-09-2025 ambulatory Ryley Steffany Facility:[facility] [place] Start: 05-01-2025 End: 05-01-2025 ambulatory [facility] Ambulatory Start: 05-01-2025 End: 05-01-2025 Office outpatient visit 25 minutes Maricruz Albert JIG INSPECTOR-FLOOR ASSEMBLER, DNP Work Phone: [facility] Building Comment on above: 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 Breezy chavez MD -[facility] Start: 04-22-2025 Dr. Malika Fonseca [facility] Work Phone: Start: 04-21-2025 Dr. Breezy chavez MD [facility] Start: 04-21-2025 Dr. Malika Fonseca [facility] Work Phone: Start: 04-20-2025 Dr. Breezy chavez MD [facility] Start: 04-20-2025 Dr. Ger lora [facility] Work Phone: Start: 04-19-[address] [facility] Start: 04-19-2025 End: 04-22-2025 Evaluation and management of inpatient Ryley Jeter MD Work Phone: [facility] Work Phone: Start: 04-19-2025 End: 04-22-2025 Dr. Nancy Rizzo -Intensive Care Unit Work Phone: Start: 04-16-2025 End: 04-17-2025 Refill Ej Guidry [facility] Comment on above: Medication Refill Type 1 diabetes suzie itus with diabetic neuropathy (HCC) Start: 04-12-2025 ambulatory RYLEY JETER [facility] Ambulatory Start: 04-10-2025 Dr. Grace sepulveda [facility] Work Phone: Start: 04-09-2025 Non-patient / Non-visit Dr. Kesha Arnold MD [facility] Work Phone: Start: 04-09-2025 Dr. Grace sepulveda MD [facility] Work Phone: Start: 04-08-2025 Non-patient / Non-visit Dr. Cassandra Moore MD [facility] Work Phone: Start: 04-08-2025 Dr. Jose Moore MD [facility] Work Phone: Start: 04-07-2025 Non-patient / Non-visit Dr. Cassandra Moore MD [facility] Work Phone: Start: 04-07-2025 Dr. Jose Moore [facility] Work Phone: Start: 04-06-2025 Non-patient / Non-visit Dr. Cassandra Moore MD [facility] Work Phone: Start: 04-06-2025 Dr. Jose Moore MD [facility] Work Phone: Start: 04-06-2025 Non-patient / Non-visit Dr. Rosetta URIBE [facility] Start: 04-06-2025 Dr. Smooth almanza MD [facility] Start: 04-06-2025 Non-patient / Non-visit Dr. Landry August own [facility] Start: 04-06-[address] [facility] [facility] Start: 04-05-2025 Non-patient / Non-visit Dr. Rosetta URIBE [facility] Start: 04-05-2025 Dr. Smooth almanza MD [facility] Start: 04-05-2025 Non-patient / Non-visit Dr. Kesha Martin MD [facility] Start: 04-05-2025 Dr. Barbie Martin MD [facility] Start: 04-05-2025 Non-patient / Non-visit Dr. Kesha Arnold MD [facility] Work Phone: Start: 04-05-2025 Dr. Grace sepulveda MD [facility] Work Phone: Start: 04-05-2025 Non-patient / Non-visit Dr. Landry August own [facility] Start: 04-05-[address] [facility] Start: 04-04-2025 Non-patient / Non-visit Dr. Kesha Arnold [facility] Work Phone: Start: 04-04-2025 Dr. Grace sepulveda MD [facility] Work Phone: Start: 04-03-2025 ambulatory Ryley Jeter [facility] [place] Start: 04-03-2025 Non-patient / Non-visit Dr. Koffi langley MD -[facility] Start: 04-03-2025 Dr. Koffi Gibbs MD -[facility] Start: 04-03-2025 ambulatory Dyana Hwang Facility :[facility] Start: 04-03-2025 End: 04-10-2025 Evaluation and management of inpatient Dr. Dyana Hwang MD -Intensive Care Unit Work Phone: Start: 04-03-2025 End: 04-10-2025 Dr. Grace Arnold MD -Progressive Care Unit Work Phone: Start: 03-29-2025 End: 03-29-2025 ambulatory WOO SMALL [facility] Start: 03-27-2025 End: 03-27-2025 Follow-up encounter Woo Small MD Work Phone: [facility] Phys[facility] Comment on above: Basic metabolic pane l Start: 03-12-2025 End: 03-12-2025 Office outpatient visit 25 minutes Paty Ortega 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 (Primary Dx); NSTEMI (non-ST elevated myocardial infarction) (HCC); Hospital discharge follow-up Start: 03-09-2025 End: 03-09-2025 ambulatory RYLEY JETER [facility] Ambulatory Start: 02-28-2025 End: 03-05-2025 Evaluation and management of inpatient [facility] Start: 02-26-2025 End: 02-26-2025 Office outpatient visit 15 minutes Ayanna Albert DO Work Phone: [facility] Office Building Comment on above: 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); Essential hypertension; Pure hypercholesterolemia; Type 1 diabetes mellitus with diabetic neuropathy Start: 02-26-2025 End: 02-26-2025 ambulatory AYANNA Sudha [facility] Ambulatory Start: 02-16-2025 End: 02-16-2025 Refill Paty Ortega FLOOR ASSEMBLER Work Phone: [facility] Endocrinology Physicians Comment on above: Type 1 diabetes suzie itus with diabetic neuropathy (HCC) (Primary Dx) Start: 02-14-2025 End: 02-14-2025 Documentation procedure Ej Guidry MA [facility] Hear t & Vascular Physicians Comment on above: Letter refaxed Start: 02-12-2025 End: 02-13-2025 Orders Only Paty Ortega FLOOR ASSEMBLER Work Phone: [facility] End[facility] Phys[facility] Start: 02-09-2025 Encounter for other preprocedural examination Kerwin Tamayo [facility] Start: 02-06-2025 End: 02-06-2025 ambulatory Ryley Jeter MD Work Phone: [facility] Work Phone: Start: 02-06-2025 End: 02-06-[address] Kerwin Tamayo MD -Laboratory, [facility] Start: 02-06-2025 End: 02-06-2025 Dr. Kerwin Tamayo MD -Laboratory [facility] Start: 02-06-2025 End: 02-06-2025 ambulatory Ryley Jeter Facility:[facility] Start: 01-01-2025 End: 01-01-2025 Refill Paty Ortega FLOOR ASSEMBLER Work Phone: [facility] Endocrinology Physicians Comment on above: Type 1 diabetes suzie itus with diabetic neuropathy (HCC) (Primary Dx) Start: 12-08-2024 End: 12-08-2024 Refill Paty Ortega CNP Work Phone: [facility] Endocr[facility] Physicians Comment on above: Type 1 diabetes suzie itus with diabetic neuropathy (HCC) Start: 11-20-2024 End: 11-20-2024 Refill Paty Ortega FLOOR ASSEMBLER Work Phone: [facility] End[facility] Start: 11-14-2024 End: 11-14-2024 Office outpatient visit 25 minutes Woo Small MD Work Phone: [facility] Comment on above: 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 (Primary Dx); Claudication in peripheral vascular disease; Bilateral carotid artery stenosis Start: 11-14-2024 End: 11-14-2024 ambulatory [facility] Ambulatory Start: 11-13-2024 End: 11-13-2024 Office outpatient visit 25 minutes Paty Ortega CNP Work Phone: [facility] Endocr[facility]ology [place] Comment on above: Type 1 diabetes suzie itus with diabetic neuropathy (HCC) (Primary Dx); Pure hypercholesterolemia; Essential hypertension Start: 11-13-2024 End: 11-13-2024 ambulatory [facility] STEFFANY [facility] Ambulatory Start: 11-09-2024 End: 11-09-2024 Office outpatient new 60 minutes Sandi Phan PA-C Work Phone: [facility] Phys[facility] Comment on above: Bilateral carotid ar radha stenosis Start: 11-09-2024 End: 11-09-2024 ambulatory SANDI PHAN [facility] Ambulatory Start: 11-07-2024 End: 11-07-2024 Office outpatient new 45 minutes Brock Groves MD Work Phone: [facility] Comment on above: 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 (Primary Dx) Start: 11-07-2024 End: 11-11-2024 Orders Only Sandi Phan PA-C Work Phone: [facility] Comment on above: Bilateral carotid ar radha stenosis (Primary Dx) Start: 11-06-2024 End: 11-07-2024 Refill Paty Ortega FLOOR ASSEMBLER Work Phone: [facility] Endocrinology Physicians Comment on above: Type 1 diabetes suzie itus with diabetic neuropathy (HCC) (Primary Dx) Start: 10-27-2024 End: 10-28-2024 ambulatory CINTIA [facility] Start: 10-27-2024 End: 10-28-2024 Emergency department patient visit Elías Rodriguez MD Work Phone: [facility] Intermediate Care Unit Start: 10-23-2024 End: 10-23-2024 Chart abstracting Ej Guidry MA [facility] Comment on above: Medication Refill Start: 10-18-2024 End: 10-18-2024 Office outpatient visit 25 minutes Woo Small MD Work Phone: [facility] Comment on above: Claudication in sheyla pheral vascular disease (HCC) (Primary Dx); Encounter for examination of blood pressure with abnormal findings; 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; Congestive heart failure, unspecified HF chronicity, unspecified heart failure type (HCC); Hypertensive emergency Start: 10-18-2024 End: 10-18-2024 Patient encounter status Woo Small MD Work Phone: [facility] Start: 10-18-2024 End: 10-18-2024 ambulatory WOO SMALL [facility] Ambulatory Start: 10-18-2024 End: 10-18-2024 Encounter for examination of blood pressure with abnormal findings WOO SMALL [facility] Ambulatory Start: 10-06-2024 End: 10-06-2024 Refill Luisa Easley RN [facility] Start: 10-04-2024 ambulatory EJ GUIDRY [facility] Ambulatory Start: 09-28-2024 ambulatory [facility]LEY JETER [facility] Start: 09-26-2024 End: 09-26-2024 Refill Paty Ortega FLOOR ASSEMBLER Work Phone: [facility] Endocrinology Physicians Comment on above: Type 1 diabetes suzie itus with diabetic neuropathy (HCC) (Primary Dx) Start: 09-21-2024 End: 09-21-2024 ambulatory Chalcam [facility] Facility:[facility] Start: 09-13-2024 ambulatory Chalcam Steffany [facility] Start: 09-12-2024 ambulatory Ryley Steffany [facility] Start: 09-12-2024 End: 09-14-2024 Evaluation and management of inpatient Young Koroma Facility:[facility] Start: 09-12-2024 ambulatory Young Koroma [facility] Start: 08-29-2024 End: 08-29-2024 Office outpatient visit 15 minutes Ayanna Albert DO Work Phone: [facility] Medical Office Building Comment on above: 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); Essential hypertension; Type 1 diabetes mellitus with diabetic neuropathy Start: 08-29-2024 End: 08-29-2024 ambulatory [facility] Ambulatory Start: 07-21-2024 End: 07-21-2024 Office outpatient visit 25 minutes Paty Ortega FLOOR ASSEMBLER Work Phone: [facility] Endocr[facility]ology [place] Comment on above: Type 1 diabetes suzie itus with diabetic neuropathy (HCC) (Primary Dx); Pure hypercholesterolemia; Essential hypertension Start: 07-21-2024 End: 07-21-[address] [facility] Ambulatory Start: 07-07-2024 End: 07-07-2024 ambulatory NO ASSIGNED PCP GENERIC PROVIDER [facility] Start: 05-17-2024 End: 05-17-2024 [facility] Facility[facility] Start: 04-24-2024 End: 04-24-2024 Office outpatient visit 25 minutes Woo Small MD Work Phone: [facility] Phys[facility] Comment on above: 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 (Primary Dx); Primary hypertension; Dyslipidemia Start: 03-28-2024 Refill Ej Guidry MA [facility] V[facility] Physicians Comment on above: Medication Refill Start: 03-06-2024 Refill Paty Ortega FLOOR ASSEMBLER Work Phone: [facility] Physicians [facility] Endocrinology [place] Comment on above: Type 1 diabetes suzie itus with diabetic neuropathy (HCC) Start: 02-24-2024 End: 02-24-2024 Office outpatient visit 15 minutes Maricruz BERMAN, DNP Work Phone: [facility] Office Building Comment on above: 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); Acute on chronic systolic (congestive) heart failure (Multi); Type 1 diabetes mellitus with diabetic neuropathy (Multi) Start: 02-18-2024 End: 02-18-2024 Office outpatient visit 25 minutes Paty Ortega CNP Work Phone: [facility] Physicians [facility] Endocrinology [place] Comment on above: Type 1 diabetes suzie itus with diabetic neuropathy (HCC) (Primary Dx); Pure hypercholesterolemia; Essential hypertension Start: 02-07-2024 End: 02-07-2024 ambulatory NO ASSIGNED PCP GENERIC PROVIDER [facility] Start: 01-17-2024 Refill Ej Guidry MA [facility] Vascular Physicians Comment on above: Medication Refill Start: 01-14-2024 End: 01-14-2024 Office outpatient visit 15 minutes Aylin Lacy FLOOR ASSEMBLER Work Phone: [facility] Phys[facility] Comment on above: Cardiovascular stres s test abnormal (Primary Dx); Dyslipidemia; 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; Primary hypertension Start: 12-29-2023 Refill Ej Guidry MA [facility] V[facility] Physicians Comment on above: Medication Refill Start: 12-15-2023 End: 12-15-2023 ambulatory [facility] Work Phone: Start: 12-15-2023 End: 12-15-2023 Patient encounter procedure [facility] [place] Work Phone: Start: 11-29-2023 End: 11-29-2023 Subsequent hospital visit by physician Jovan Faithv1 [employer] [facility] Comment on above: Arrived Start: 11-27-2023 End: 12-01-2023 Evaluation and management of inpatient [facility] Work Phone: [facility] Start: 11-26-2023 End: 11-27-2023 Emergency department patient visit Ger Bansal DO Work Phone: [facility] Emergency Medicine Comment on above: NSTEMI (non-ST eleva chinyere myocardial infarction) ([facility]) (Primary Dx); MADONNA (acute kidney injury) ([facility]); Acute combined systolic and diastolic congestive heart failure ([facility]); Type 1 diabetes mellitus with other specified complication ([facility]) Start: 11-25-2023 End: 11-25-2023 ambulatory [facility] Work Phone: Start: 11-25-2023 End: 11-25-2023 Patient encounter procedure [facility] Work Phone: Start: 11-17-2023 End: 11-17-2023 [facility] Work Phone: Start: 11-17-2023 End: 11-17-2023 Patient encounter procedure [facility] Work Phone: Start: 11-02-2023 Orders Only Mary Ramirez MD Work Phone: [facility] Endocrinology Physicians Start: 10-22-2023 End: 10-22-2023 Patient encounter procedure [facility] Start: 10-21-2023 End: 10-21-2023 Office outpatient new 45 minutes Mary Vargas MD Work Phone: [facility] Vascular Physicians Comment on above: 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 (Primary Dx); Dyslipidemia; Congestive heart failure, unspecified HF chronicity, unspecified heart failure type (HCC) Start: 10-11-2023 End: 10-11-2023 Subsequent hospital visit by physician Jovan [email or web address] [facility] Start: 10-11-2023 Critical care ill/in jured patient init 30-74 min Aury Rouse DO Work Phone: [facility] Work Phone: Start: 10-11-2023 End: 10-13-2023 Evaluation and management of inpatient Praful Pineda MD Work Phone: [facility] Surgical Intensive Care Comment on above: [...] 25 minutes Mary Vargas MD Work Phone: [facility] Endocrinology [place] Comment on above: 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) (Primary Dx); Type 1 diabetes mellitus with diabetic neuropathy (HCC); Essential hypertension; Pure hypercholesterolemia Start: 08-25-2023 End: 08-25-2023 Office outpatient visit 15 minutes Ayanna Albert DO Work Phone: [facility] Office Building Comment on above: 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 Ayanna Albert Facility:[id number] Start: 07-30-2023 Refill Paty Ortega CNP Work Phone: [facility] [place] Start: 07-29-2023 Patient encounter procedure Da jovani Mirza Work Phone: [facility] Work Phone: Start: 07-27-[address] Ayanna Albert Facility:[id number] Start: 02-19-2023 End: 02-19-2023 Office outpatient visit 25 minutes aPty Ortega CNP Work Phone: [facility] Comment on above: Type 1 diabetes suzie itus with diabetic neuropathy (HCC) Start: 01-25-2023 Patient encounter procedure Da vid J Tomchak Work Phone: [facility] [place] Work Phone: Start: 01-25-[address] Nancy Mirza Facility:[id number] Start: 01-18-2023 Patient encounter procedure Da jovani Mirza Work Phone: [facility] [place] Work Phone: Start: 01-18-[address] Nancy Mirza Facility:[id number] Start: 01-15-2023 Patient encounter procedure Da jovani Mirza Work Phone: [facility] [place] Work Phone: Start: 01-15-2023 [email or web address], Provider : Chaya Chan, Status: Pen, Time: 10:00 AM Nancy Mirza Work Phone: [facility] [place] Work Phone: Start: 01-15-[address] Nancy Mirza Facility:[id number] Start: 01-13-2023 Patient encounter procedure Da jovani Mirza Work Phone: [facility] [place] Work Phone: Start: 01-13-[address] Nancy Mirza Facility:[id number] Start: 01-08-2023 [email or web address], Provider : Chaya Chan, Status: Pen, Time: 10:00 AM Nancy Mirza Work Phone: [facility] [place] Work Phone: Start: 01-08-[address] Nancy Mirza Facility:[id number] Start: 01-06-[address] Nancy Mirza Facility:[id number] Start: 01-06-2023 Patient encounter procedure Da jovani Mirza Work Phone: [facility] [place] Work Phone: Start: 01-01-[address] Nancy Mirza Facility:[id number] Start: 01-01-2023 Patient encounter procedure Da jovani Mirza Work Phone: [facility] [place] Work Phone: Start: 12-31-2022 Refill Paty Ortega FLOOR ASSEMBLER Work Phone: [facility] Endocrinology Physicians Comment on above: Type 1 diabetes suzie itus with diabetic neuropathy (HCC) (Primary Dx) Start: 12-30-[address] Nancy Mirza Facility:[id number] Start: 12-25-[address] Nancy Mirza Facility:[id number] Start: 12-25-2022 Patient encounter procedure Da jovani Mirza Work Phone: [facility] [place] Work Phone: Start: 12-21-2022 Patient encounter procedure Da jovani Mirza Work Phone: [facility] [place] Work Phone: Start: 12-21-[address] Nancy Mirza Facility:[id number] Start: 10-19-2022 End: 10-19-2022 Office outpatient visit 25 minutes Paty Ortega CNP Work Phone: [facility] Physicians [facility] Endocrinology [place] Comment on above: Type 1 diabetes suzie itus with diabetic neuropathy (HCC) (Primary Dx); Essential hypertension; Pure hypercholesterolemia; Bilateral carotid artery stenosis; Prostate cancer screening Start: 06-19-2022 End: 06-19-2022 Office outpatient visit 25 minutes Paty Ortega CNP Work Phone: [facility] Physicians [facility] Endocrinology [place] Comment on above: Type 1 diabetes suzie itus with diabetic neuropathy (HCC) (Primary Dx); Essential hypertension; Elevated PSA Start: 02-13-2022 End: 02-13-2022 Office outpatient visit 25 minutes Mary Vargas MD Work Phone: [facility] Physicians [facility] Endocrinology [place] Comment on above: Type 1 diabetes suzie itus with diabetic neuropathy (HCC) (Primary Dx); 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); Essential hypertension; Bilateral carotid artery stenosis; Prostate cancer screening Start: 10-13-2021 End: 10-13-2021 Office outpatient visit 25 minutes Paty Ortega FLOOR ASSEMBLER Work Phone: [facility] Comment on above: Type 1 diabetes suzie itus with diabetic neuropathy (HCC) (Primary Dx); Essential hypertension; Pure hypercholesterolemia Start: 10-08-2021 Refill Paty Ortega FLOOR ASSEMBLER Work Phone: [facility] Start: 06-20-2021 End: 06-20-2021 Office outpatient visit 25 minutes Paty Ortega FLOOR ASSEMBLER Work Phone: [facility] Comment on above: Type 1 diabetes suzie itus with diabetic polyneuropathy (HCC) (Primary Dx); Essential hypertension; Pure hypercholesterolemia Start: 02-26-2021 End: 02-26-2021 Subsequent hospital visit by physician Mary Vargas MD Work Phone: [facility] Comment on above: Arrived Start: 02-18-2021 End: 02-18-2021 Office outpatient visit 25 minutes Mary Vargas MD Work Phone: [facility] Comment on above: Type 1 diabetes suzie itus with diabetic polyneuropathy (HCC) (Primary Dx); Bilateral carotid artery stenosis; Essential hypertension; Type 1 diabetes mellitus with diabetic neuropathy (HCC) Start: 02-18-2021 End: 02-18-2021 Refill Mary Vargas MD Work Phone: [facility] Start: 11-22-2020 End: 11-22-2020 Orders Only Ya Nicolas Work Phone: [facility] Start: 10-18-2020 End: 10-18-2020 Office outpatient visit 25 minutes Paty Ortega Work Phone: [facility] Comment on above: Type 1 diabetes suzie itus with diabetic polyneuropathy (HCC) (Primary Dx); Type 1 diabetes mellitus with diabetic neuropathy (HCC); Essential hypertension; Pure hypercholesterolemia Start: 06-18-2020 End: 06-18-2020 Office outpatient visit 25 minutes Paty Ortega Work Phone: [facility] Comment on above: Type 1 diabetes suzie itus with diabetic polyneuropathy (HCC) (Primary Dx); Type 1 diabetes mellitus with diabetic neuropathy (HCC); Essential hypertension; Pure hypercholesterolemia Start: 11-16-2019 End: 11-16-2019 Office outpatient visit 25 minutes Paty Ortega Work Phone: [facility] Comment on above: Type I diabetes suzie itus with neurological manifestations, uncontrolled (HCC) (Primary Dx); Type 1 diabetes mellitus with diabetic polyneuropathy (HCC); Pure hypercholesterolemia Start: 07-17-2019 End: 07-17-2019 Office outpatient visit 25 minutes Keeley Patton Work Phone: [facility] Comment on above: Type 1 diabetes suzie itus with diabetic polyneuropathy (HCC) (Primary Dx); Essential hypertension; Pure hypercholesterolemia Start: 03-13-2019 End: 03-13-2019 Office outpatient visit 25 minutes Mary Vargas Work Phone: [facility] Comment on above: 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) (Primary Dx); Pure hypercholesterolemia; Essential hypertension; Type 1 diabetes mellitus with diabetic neuropathy (HCC); Prostate cancer screening Start: 11-11-2018 End: 11-11-2018 Office outpatient visit 15 minutes Keeley Patton Work Phone: [facility] Comment on above: Type 1 diabetes suzie itus with diabetic neuropathy (HCC) (Primary Dx); Essential hypertension Start: 07-05-2018 End: 07-05-2018 Office outpatient visit 25 minutes Paty Ortega Work Phone: [facility] Comment on above: Type 1 diabetes suzie itus with diabetic neuropathy (HCC) (Primary Dx); Essential hypertension; Pure hypercholesterolemia Start: 02-28-2018 End: 02-28-2018 Office/outpatient visit, est, level 3 Alexandra Givens Work Phone: [facility] Start: 02-09-2018 Ambulatory Nancy Mirza [facility] y:[place] Start: 02-09-2018 End: 02-09-2018 Ambulatory Nancy Mirza Work Phone: [facility] Start: 10-29-2017 Office/outpatient vi sit, est, level 4 Mary Arti Galvaney Work Phone: [facility] Start: 06-17-2017 End: 06-17-2017 Office outpatient visit 25 minutes Ya Parker Work Phone: [facility] Comment on above: Type [...] colitis,primary sclerosing cholangitis and autoimmune hepatitis.Performed at: [address] [id number] Director: Todd Anderson PhD, Phone: [phone] Start: 04-06-2025 Serum inorganic phos phate measurement [...] or Pulmonary Embolism (PE)CRITICAL VALUE CALLED TO [id number] Victor Hugo Santamaria.RESULTS READ BACK BY SAME. Start: 04-03-2025 Estimated creatinine clearance Ryley Jeter MD Work Phone: Start: 02-28-2025 Thyrotropin [Units/v olume] in Serum or Plasma Maricruz Albert APRN-FLOOR ASSEMBLER, DNP Work Phone: Start: 02-12-2025 Comprehensive metabolic panel Paty Ortega [facility] Work Phone: Start: 02-12-2025 Lipid panel Paty Ortega [facility] Work Phone: Start: 02-12-2025 Lipid 1996 [...] 12-01-2023 End: 12-01-[address] [facility] Work Phone: Start: 12-01-2023 Basic metabolic pane l calcium total Norma Geiger FLOOR ASSEMBLER Work Phone: Start: 11-30-[address] Gen malika [facility] Work Phone: Start: 11-30-2023 Glucose measurement Gen malika [facility] Work Phone: Start: 11-30-2023 Echo tthrc r-t 2d w/ wom-mode compl spec&colr d Norma Geiger FLOOR ASSEMBLER Work Phone: Start: 11-30-2023 Basic metabolic pane l calcium total Norma Geiger FLOOR ASSEMBLER Work Phone: Start: 11-29-2023 Ct thorax w/o contra st material Alfred P Ezike FLOOR ASSEMBLER Work Phone: Start: 11-29-2023 Thromboplastin time partial plasma/whole blood Mary Vargas MD Work Phone: Start: 11-29-2023 Glucose measurement Gen [facility] Work Phone: Start: 11-29-2023 Ecg routine ecg w/le ast 12 lds trcg only w/o i&r Ger W Bansal DO Work Phone: Start: 11-29-2023 Glucose measurement Gen [facility] Work Phone: Start: 11-29-2023 Thromboplastin time partial plasma/whole blood Mary Vargas MD Work Phone: Start: 11-29-2023 Basic metabolic pane l calcium total Norma Tania Juanjo FLOOR ASSEMBLER Work Phone: Start: 11-28-2023 Glucose measurement Gen [facility] Work Phone: Start: 11-28-2023 Glucose measurement Gen [facility] Work Phone: Start: 11-28-2023 Glucose measurement Gen [facility] Work Phone: Start: 11-28-2023 Glucose measurement Gen [facility] Work Phone: Start: 11-28-2023 Basic metabolic pane l calcium total Norma Tania Juanjo FLOOR ASSEMBLER Work Phone: Start: 11-28-2023 Glucose measurement Gen [facility] Work Phone: Start: 11-28-2023 Basic metabolic pane l calcium total Norma Tania [place] FLOOR ASSEMBLER Work Phone: Start: 11-27-2023 End: 11-27-2023 Basic metabolic panel calcium total Noram Tania [place] FLOOR ASSEMBLER Work Phone: Start: 11-27-2023 C-reactive protein Mehdi gaylaa Kareen Pabon MD Work Phone: Start: 11-27-20[address] Gen malika [facility] Work Phone: Start: 11-27-2023 Glucose measurement Gen malika [facility] Work Phone: Start: 11-27-2023 Glucose measurement Gen malika [facility] Work Phone: Start: 11-27-2023 Basic metabolic pane l calcium total Norma Tania [place] FLOOR ASSEMBLER Work Phone: Start: 11-27-2023 Glucose measurement Gen malika [facility] Work Phone: Start: 11-27-2023 Iaad ia clostridium difficile toxin Norma Tania [place] FLOOR ASSEMBLER Work Phone: Start: 11-27-2023 Hemoglobin glycosylated a1c Mary Vargas MD Work Phone: Start: 11-27-2023 [facility]: Start: 11-27-2023 Basic metabolic pane l calcium total Norma Tania Juanjo FLOOR ASSEMBLER Work Phone: Start: 11-27-[address] Gen malika [facility] Work Phone: Start: 11-27-2023 Glucose measurement Gen malika [facility] Work Phone: Start: 11-27-2023 End: 11-27-[address] [facility] Work Phone: Start: 11-27-2023 Basic metabolic pane l calcium total Norma Tnaia [place] FLOOR ASSEMBLER Work Phone: Start: 11-27-20[address] Gen malika [facility] Work Phone: Start: 11-27-20[address] Glucose measurement Gen malika [facility] Work Phone: Start: 11-27-2023 Glucose measurement Gen malika [facility] Work Phone: Start: 11-27-2023 Basic metabolic pane l calcium total Norma Geiger CNP Work Phone: Start: 11-27-2023 Influenza virus A an d B RNA and SARS-CoV-2 (COVID-19) N gene panel - Respiratory specimen by ALICE with probe detection Norma Geiger FLOOR ASSEMBLER Work Phone: Start: 11-27-2023 Polymerase chain ty ction analysis Norma Geiger FLOOR ASSEMBLER Work Phone: Start: 11-27-2023 End: 11-27-[address] [facility] Work Phone: Start: 11-27-2023 Assay of troponin quantitative Norma Geiger FLOOR ASSEMBLER Work Phone: Start: 11-27-2023 Gases blood ph direc t nikkie xcpt pulse oximitry Generic [facility] Work Phone: Start: 11-27-2023 End: 11-27-[address] [facility] Work Phone: Start: 11-27-2023 Radiologic exam ches t single view Norma Geiger CNP Work Phone: Start: 11-27-2023 End: 11-27-2023 Gases blood ph direct nikkie xcpt pulse oximitry Generic [facility] Work Phone: Start: 11-27-2023 Ecg routine ecg w/le ast 12 lds trcg only w/o i&r Norma Geiger FLOOR ASSEMBLER Work Phone: Start: 11-27-2023 OBTAIN ARTERIAL BLOO D GASES AND PERFORM Norma Geiger FLOOR ASSEMBLER Work Phone: Start: 11-27-2023 OBTAIN VENOUS BLOOD GASES AND PERFORM Norma Geiger FLOOR ASSEMBLER Work Phone: Start: 11-27-2023 End: 11-27-2023 Basic metabolic panel calcium total Norma Geiger FLOOR ASSEMBLER Work Phone: Start: 11-27-2023 End: 11-27-2023 Culture bacterial blood aerobic w/id isolates Norma Geiger FLOOR ASSEMBLER Work Phone: Start: 11-27-2023 Lipid panel Nroma Tavares FLOOR ASSEMBLER Work Phone: Start: 11-27-2023 End: 11-27-[address] [facility] Work Phone: Start: 11-27-2023 Thyrotropin [Units/v olume] in Serum or Plasma [facility] Start: 11-27-2023 Assay of troponin quantitative Ger [...] 3 comp foot exam completed Paty Ortega FLOOR ASSEMBLER Work Phone: Start: 02-19-2023 3 comp foot exam completed Paty Ortega FLOOR ASSEMBLER Work Phone: Start: 02-12-2023 Lipid 1996 panel - S laurence or Plasma Ayanna Albert DO Work Phone: Start: 02-12-2023 Thyrotropin [Units/v olume] in Serum or Plasma Ayanna Albert DO Work Phone: Start: 10-19-2022 3 comp foot exam completed Paty Ortega FLOOR ASSEMBLER Work Phone: Start: 06-19-2022 3 comp foot exam completed Paty Ortega FLOOR ASSEMBLER Work Phone: Start: 02-13-2022 3 comp foot exam completed Mary Vargas MD Work Phone: Start: 10-13-2021 3 comp foot exam completed Paty Ortega FLOOR ASSEMBLER Work Phone: Start: 06-20-2021 3 comp foot exam completed Paty Ortega FLOOR ASSEMBLER Work Phone: Start: 06-11-2021 Microalbumin [Mass/v olume] in Urine by Test strip Paty Ortega FLOOR ASSEMBLER Work Phone: Start: 02-26-2021 Duplex scan extracra nial art compl bi study Mary Vargas MD Work Phone: Start: 02-18-2021 3 comp foot exam completed Mary Vargas MD Work Phone: Start: 10-18-2020 3 comp foot exam completed Paty Ortega Start: 10-14-2020 Ophthalmic examinati on and evaluation Paty Ortega FLOOR ASSEMBLER Work Phone: Start: 10-03-2020 Microalbumin [Mass/v olume] [...] EJACULATION WITHIN 48 HRS. [facility] VOL24,NO.2, , PG.339 Performed By: #### [id number] #### [facility] [address] [place] [address] Start: 03-13-2019 3 comp foot exam completed Keeley Pooja Start: 11-11-2018 3 comp foot exam completed Mary Vargas Start: 07-05-2018 3 comp foot exam completed Keeley Patton Start: 02-15-2017 3 comp foot exam completed Ya Parker Plan of Treatment Date Care Activity Detail Author Start: 04-27-2026 Creatinine measurement Creatinine Level [facility] Start: 04-27-2026 Potassium measurement Potassium Level [facility] Start: 04-03-2026 Echocardiography Echocardiogram [facility] Start: 02-28-2026 Thyroid stimulating hormone measurement TSH Level [facility] Start: 02-12-2026 Creatinine measurement Creatinine Level [facility] Start: 02-12-2026 Lipid panel Lipid Panel [facility] Start: 02-12-2026 Potassium measurement Potassium Level [facility] Start: 02-12-2026 Thyroid stimulating hormone measurement TSH Level [facility] Start: 02-12-2026 Urine screening for protein Diabetes: Urine Protein Screening [facility] Start: 11-13-2025 Diabetic foot examination Diabetic Foot Exam [facility] Start: 10-27-2025 Screening for malignant neoplasm of lung Low-dose CT Lung Cancer Screen [facility] Start: 10-23-2025 Glaucoma screening Diabetes: Retinopathy Screening [facility] Start: 09-23-2025 eGFR Diabetes eGFR Diabetes [facility] Start: 09-05-2025 Urine screening for protein eGFR Diabetes [facility] Start: 08-27-2025 End: 08-27-2025 Patient encounter procedure 08/27/2025 1:30 PM EDT Office Visit [facility] Building [address] [place] [address] Ayanna Albert, DO [address] [place] [address] [facility] Start: 08-14-2025 Hemoglobin A1c measurement A1C [facility] Start: 08-14-2025 Urine screening for protein eGFR Diabetes [facility] Start: 07-13-2025 End: 07-13-2025 Patient encounter procedure 07/13/2025 1:00 PM EDT Office Visit [facility] [place] [address] [place] [id number] Paty Ortega CNP [address] [place] [address] [facility] [place] Start: 07-07-2025 Creatinine measurement Creatinine Level [facility] Start: 07-07-2025 Potassium measurement Potassium Level [facility] Start: 07-07-2025 Thyroid stimulating hormone measurement TSH Level [facility] Start: 07-02-2025 Influenza vaccination [facility] Start: 06-12-2025 End: 06-12-2025 Patient encounter procedure 06/12/2025 9:20 AM EDT Office Visit [facility] [address] [place] [id number] Woo Small MD [address] [place] [address] [facility] Start: 06-05-2025 End: 06-05-2025 Patient encounter procedure 06/05/2025 11:00 AM EDT Office Visit [facility] Office [address] [place] [address] Maricruz Albert, JIG INSPECTOR-TRISTAN, DNP [address] [facility] [address] [place] [address] [facility] Start: 06-01-2025 End: 05-01-2026 Basic metabolic 2000 panel - Serum or Plasma Basic metabolic panel Lab Routine Stage 3b chronic kidney disease (Multi) Edema, unspecified type Expected: 06/01/2025 (Approximate), Expires: 05/01/2026 [facility] Work Phone: Comment on above: Expected: 06/01/2025 (Approximate), Expi res: 05/01/2026 Start: 05-30-2025 Hemoglobin A1c measurement [facility] Start: 05-17-2025 End: 05-17-2025 Patient encounter procedure [facility] Start: 05-15-2025 End: 05-01-2026 Basic metabolic 2000 panel - Serum or Plasma Basic metabolic panel Lab Routine Stage 3b chronic kidney disease (Multi) Expected: 05/15/2025 (Approximate), Expires: 05/01/2026 [facility] Service Area Work Phone: Comment on above: Expected: 05/15/2025 (Approximate), Expi res: 05/01/2026 Start: 05-15-2025 End: 05-01-2026 CBC panel - Blood by Automated count CBC Lab Routine Stage 3b chronic kidney disease (Multi) Anemia due to stage 4 chronic kidney disease Expected: 05/15/2025 (Approximate), Expires: 05/01/2026 [facility] Work Phone: Comment on above: Expected: 05/15/2025 (Approximate), Expi res: 05/01/2026 Start: 05-14-2025 Hemoglobin A1c measurement [facility] Start: 05-14-2025 End: 05-14-2025 Patient encounter procedure 05/14/2025 11:20 AM EDT Office Visit [facility] [address] [place] [id number] Woo Small MD [address] [place] [id number] [facility] Start: 04-28-2025 Urine screening for protein eGFR Diabetes [facility] Start: 04-22-2025 Patient discharge [facility] Start: 04-21-2025 Application of intermittent pneumatic compression device [facility] Start: 04-20-2025 Referral to service [facility] Start: 04-20-2025 Referral to comfort station supervisor [facility] Start: 04-20-2025 [facility] Start: 04-20-2025 Inhalation therapy procedure [facility] Start: 04-19-2025 [facility] Start: 04-19-2025 Referral to service [facility] Start: 04-19-2025 Care planning and problem solving actions [facility] Start: 04-19-2025 [facility] Start: 04-19-2025 Gas panel - Arterial blood [facility] Start: 04-19-2025 Serum inorganic phosphate measurement [facility] Start: 04-19-2025 Thyroid stimulating hormone measurement [facility] Start: 04-19-2025 Assessment of risk of venous thromboembolism [facility] Start: 04-19-2025 Care regimes management [facility] Start: 04-19-2025 Catheterization of vein [facility] Start: 04-19-2025 Continuous pulse oximetry [facility] Start: 04-19-2025 Elevation of head of bed [facility] Start: 04-19-2025 Incentive spirometry [facility] Start: 04-19-2025 Insertion of catheter into peripheral vein [facility] Start: 04-19-2025 Measuring intake and output [facility] Start: 04-19-2025 Notification of physician [facility] Start: 04-19-2025 Oxygen therapy [facility] Start: 04-19-2025 Patient referral to dietitian [facility] Start: 04-19-2025 Providing care according to standard [facility] Start: 04-19-2025 Referral to medical fee clerk [facility] Start: 04-19-2025 Referral to occupational therapist [facility] Start: 04-19-2025 Referral to service [facility] Start: 04-19-2025 Respiratory therapy [facility] Start: 04-19-2025 Tobacco use cessation education [facility] Start: 04-19-2025 Urinalysis complete panel - Urine [facility] Start: 04-19-2025 Vital signs measurements [facility] Start: 04-19-2025 End: 04-19-2025 [facility] Start: 04-19-2025 Following clinical pathway protocol [facility] Start: 04-19-2025 Pulmonary ventilation perfusion study [facility] Start: 04-19-2025 Verification routine [facility] Start: 04-19-2025 Admission procedure [facility] Start: 04-19-2025 Continuous positive airway pressure ventilation treatment [facility] Start: 04-18-2025 Urine screening for protein eGFR Diabetes [facility] Start: 04-10-2025 Patient discharge [facility] Start: 04-08-2025 Administration of blood product [facility] Start: 04-07-2025 Application of intermittent pneumatic compression device [facility] Start: 04-07-2025 Hemodialysis care [facility] Start: 04-07-2025 End: 04-07-2025 [facility] Start: 04-07-2025 [facility] Start: 04-06-2025 [facility] Start: 04-06-2025 Care of hemodialysis equipment [facility] Start: 04-06-2025 Hemodialysis care [facility] Start: 04-06-2025 [facility] Start: 04-05-2025 End: 04-06-2025 [facility] Start: 04-05-2025 Care of hemodialysis equipment [facility] Start: 04-05-2025 Dialysis care [facility] Start: 04-05-2025 Referral to general surgeon [facility] Start: 04-05-2025 Continuous pulse oximetry [facility] Start: 04-05-2025 Dual pressure spontaneous ventilation support [facility] Start: 04-04-2025 End: 04-04-2025 [facility] Start: 04-04-2025 Care regimes management [facility] Start: 04-04-2025 Notification of physician [facility] Start: 04-04-2025 Referral to medical fee clerk [facility] Start: 04-04-2025 End: 04-05-2025 [facility] Start: 04-04-2025 [facility] Start: 04-03-2025 Referral to comfort station supervisor [facility] Start: 04-03-2025 Bacteria identified in Blood by Culture Blood Culture [facility] Start: 04-03-2025 Respiratory Panel (PCR) Respiratory Panel (PCR) [facility] Start: 04-03-2025 Following clinical pathway protocol [facility] Start: 04-03-2025 Lab findings surveillance [facility] Start: 04-03-2025 End: 04-03-2025 Care planning and problem solving actions [facility] Start: 04-03-2025 End: 04-03-2025 [facility] Start: 04-03-2025 End: 04-03-2025 Following clinical pathway protocol [facility] Start: 04-03-2025 Application of elastic bandage [facility] Start: 04-03-2025 Assessment of risk of venous thromboembolism [facility] Start: 04-03-2025 Bacteria identified in Sputum by Culture [facility] Start: 04-03-2025 Care regimes management [facility] Start: 04-03-2025 Consultation [facility] Start: 04-03-2025 Elevation of affected extremity [facility] Start: 04-03-2025 Fall prevention [facility] Start: 04-03-2025 Incentive spirometry [facility] Start: 04-03-2025 Inhalation therapy procedure [facility] Start: 04-03-2025 Insertion of catheter into peripheral vein [facility] Start: 04-03-2025 Introduction of urinary catheter [facility] Start: 04-03-2025 Measuring intake and output [facility] Start: 04-03-2025 Notification of physician [facility] Start: 04-03-2025 Oxygen therapy [facility] Start: 04-03-2025 Patient education [facility] Start: 04-03-2025 Patient referral to dietitian [facility] Start: 04-03-2025 Providing care according to standard [facility] Start: 04-03-2025 Provision of activity privileges [facility] Start: 04-03-2025 Referral to occupational therapist [facility] Start: 04-03-2025 Referral to service [facility] Start: 04-03-2025 Tobacco use cessation education [facility] Start: 04-03-2025 Vital signs measurements [facility] Start: 04-03-2025 Bacterial nucleic acid assay [facility] Start: 04-03-2025 Thyroid stimulating hormone measurement [facility] Start: 04-03-2025 Streptococcus pneumoniae antigen assay [facility] Start: 04-03-2025 Verification routine [facility] Start: 04-03-2025 Admission procedure [facility] Start: 04-03-2025 [facility] Start: 04-03-2025 End: 04-03-2025 [facility] Start: 04-03-2025 Continuous pulse oximetry [facility] Start: 04-03-2025 Dual pressure spontaneous ventilation support [facility] Start: 03-23-2025 Medicare Annual Wellness Visit Medicare Annual Wellness Visit (AWV) [facility] Start: 03-12-2025 End: 03-12-2025 Patient encounter procedure 03/12/2025 2:00 PM EDT Office Visit [facility] [place] [address] [place] [address] Paty Ortega, FLOOR ASSEMBLER [address] [place] [address] [facility] [place] Start: 02-26-2025 End: 02-26-2026 Basic metabolic 2000 panel - Serum or Plasma Basic metabolic panel Lab Routine Stage 3b chronic kidney disease (Multi) Expected: 02/26/2025 (Approximate), Expires: 02/26/2026 [facility] Service Area Work Phone: Comment on above: Expected: 02/26/2025 (Approximate), Expi res: 02/26/2026 Start: 02-06-2025 Creatinine measurement Creatinine Level [facility] Start: 02-06-2025 Potassium measurement Potassium Level [facility] Start: 02-04-2025 Hemoglobin A1c measurement A1C [facility] Start: 11-29-2024 Screening for malignant neoplasm of lung Low-dose CT Lung Cancer Screen [facility] Start: 11-27-2024 Thyroid stimulating hormone measurement TSH Level [facility] Start: 11-26-2024 Creatinine measurement Creatinine Level [facility] Start: 11-26-2024 Potassium measurement Potassium Level [facility] Start: 11-20-2024 End: 11-20-2024 Patient encounter procedure 11/20/2024 2:45 PM EST Office Visit [facility] [place] [address] [place] [address] Paty Ortega, FLOOR ASSEMBLER [address] [place] [address] [facility] [place] Start: 11-14-2024 End: 11-14-2024 Patient encounter procedure 11/14/2024 10:40 AM EST Office Visit [facility] [address] [place] [address] Woo Small MD [address] [place] [address] [facility] Start: 11-13-2024 End: 11-13-2024 Patient encounter procedure 11/13/2024 11:30 AM EST Office Visit [facility] Physicians [facility] [address] [place] [address] Paty Ortega CNP [address] [place] [address] [facility] Phys[facility] Start: 11-07-2024 End: 11-07-2024 Patient encounter procedure 11/07/2024 10:00 AM EST Office Visit [facility] [address] [place] [address] 3rd [place] [address] Brock Groves MD [address] [place] [address] [facility] Start: 11-03-2024 End: 11-03-2024 Patient encounter procedure [facility] Start: 10-27-2024 End: 10-27-2024 Admission to same day surgery center 10/27/2024 10:05 AM EST - 10/27/2024 10:55 AM EST Surgery [facility] [address] [place] [address] Elías Rodriguez MD [address] [place] [address] Left Heart Cath [facility] Comment on above: Left Heart Cath Start: 10-27-2024 Subsequent hospital visit by physician [facility] Proced[facility] Care Unit Start: 10-18-2024 End: 10-18-2024 Patient encounter procedure 10/18/2024 1:20 PM EST Office Visit [facility] [address], 3rd [place] [address] Woo Small MD [address] [place] [address] [facility] Start: 10-13-2024 Creatinine measurement Creatinine Level [facility] Start: 10-13-2024 Potassium measurement Potassium Level [facility] Start: 10-11-2024 Echocardiography Echocardiogram [facility] Start: 10-06-2024 Hemoglobin A1c measurement [facility] Start: 09-27-2024 Lipid panel Lipid Panel [facility] Start: 09-27-2024 Thyroid stimulating hormone measurement TSH Level [facility] Start: 08-29-2024 End: 08-29-2025 Comprehensive metabolic [...] disease (Multi) Expected: 08/29/2024 (Approximate), Expires: 08/29/2025 [facility] Work Phone: Comment on above: Expected: 08/29/2024 (Approximate), Expi res: 08/29/2025 Start: 08-29-2024 End: 08-29-2025 Urinalysis complete panel - Urine Urinalysis with Reflex Microscopic Lab Routine Stage 3b chronic kidney disease (Multi) Expected: 08/29/2024 (Approximate), Expires: 08/29/2025 [facility] Work Phone: Comment on above: Expected: 08/29/2024 (Approximate), Expi res: 08/29/2025 Start: 08-29-2024 End: 08-29-2024 Patient encounter procedure 08/29/2024 1:00 PM EDT Office Visit [facility] Medical Office Building [address] [place] [id number] Maricruz Albert, JIG INSPECTOR-FLOOR ASSEMBLER, [facility] [address] [place] [address] [facility] Medical Office Building Start: 08-25-2024 End: 02-23-2025 Microalbumin/Creatinine [Mass Ratio] in Urine Albumin , Urine Random Lab Routine Stage 3b chronic kidney disease (Multi) Expected: 08/25/2024 (Approximate), Expires: 02/23/2025 [facility] Work Phone: Comment on above: Expected: 08/25/2024 (Approximate), Expi res: 02/23/2025 Start: 08-09-2024 Urine screening for protein Diabetes: Urine Protein Screening [facility] Start: 07-21-2024 End: 07-21-2024 Patient encounter procedure 07/21/2024 1:45 PM EDT Office Visit [facility] [place] [address] [place] [id number] Paty Ortega, TRISTAN [address] [place] [address] [facility] Physicians [facility]ocr[facility] [place] Start: 07-02-2024 COVID-19 Vaccine ( season) COVID-19 Vaccine ( season) [facility] Start: 07-02-2024 COVID-19 Vaccine ( season) COVID-19 Vaccine () [facility] Start: 07-02-2024 Influenza vaccination [facility] Start: 06-21-2024 Diabetic foot examination [facility] Start: 05-31-2024 Urine screening for protein eGFR Diabetes [facility] Start: 04-24-2024 End: 04-24-2024 ambulatory [facility] Start: 04-24-2024 End: 04-24-2024 Patient encounter procedure 04/24/2024 9:40 AM EDT Office Visit [facility] [address] [place] [address] Woo Small MD [facility] [place] [address] [facility] Start: 03-27-2024 Hemoglobin A1c measurement A1C [facility] Start: 02-26-2024 Hemoglobin A1c measurement [facility] Start: 02-24-2024 End: 02-23-2025 Basic metabolic [...] disease (Multi) Expected: 02/24/2024 (Approximate), Expires: 02/23/2025 [facility] Work Phone: Comment on above: Expected: 02/24/2024 (Approximate), Expi res: 02/23/2025 Start: 02-24-2024 End: 02-23-2025 Urate [Mass/volume] in Serum or Plasma Uric acid Lab Routine Stage 3b chronic kidney disease (Multi) Expected: 02/24/2024 (Approximate), Expires: 02/23/2025 [facility] Work Phone: Comment on above: Expected: 02/24/2024 (Approximate), Expi res: 02/23/2025 Start: 02-24-2024 End: 02-24-2024 Patient encounter procedure 02/24/2024 1:45 PM EDT Office Visit [facility] Medical Office Building [address] [place] [address] Maricruz Albert, JIG INSPECTOR-FLOOR ASSEMBLER, DNP [address] [place] [address] [facility] Medical Office Building Start: 02-20-2024 Diabetic foot examination Foot Exam [facility] Start: 02-18-2024 End: 02-18-2024 ambulatory [facility] [place] Start: 02-18-2024 End: 02-18-2024 Patient encounter procedure 02/18/2024 1:00 PM EDT Office Visit [facility] Physicians [facility] [place] [address] [place] [address] Paty Ortega, TRISTAN [address] [place] [address] [facility] Phys[facility] [place] Start: 02-13-2024 Lipid panel Lipid Panel [facility] Start: 02-13-2024 Thyroid stimulating hormone measurement TSH Level [facility] Start: 01-14-2024 End: 01-14-2024 ambulatory [facility] Start: 01-14-2024 End: 01-14-2024 Patient encounter procedure 01/14/2024 11:00 AM EDT Office Visit [facility] [address] [facility] [place] [address] Aylin Lacy CNP [address] [place] [address] [facility] Start: 01-12-2024 End: 01-12-2024 ambulatory [facility] Start: 01-12-2024 End: 01-12-2024 Patient encounter procedure [facility] Start: 01-10-2024 End: 10-08-2024 Comprehensive metabolic 2000 panel - Serum or Plasma Comprehensive Metabolic Panel Lab Routine 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) Expected: 01/10/2024 (Approximate), Expires: 10/08/2024 [facility] Work Phone: Comment on above: Expected: 01/10/2024 (Approximate), Expi res: 10/08/2024 Start: 01-10-2024 End: 10-08-2024 Hemoglobin A1c/Hemoglobin.total in Blood Hemoglobin A1c Lab Routine 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) Expected: 01/10/2024 (Approximate), Expires: 10/08/2024 [facility] Comment on above: Expected: 01/10/2024 (Approximate), Expi res: 10/08/2024 Start: 12-28-2023 Hemoglobin A1c measurement Diabetes: Hemoglobin A1C [facility] Start: 12-09-2023 Glaucoma screening Diabetes: Retinopathy Screening [facility] Start: 11-29-2023 End: 11-29-2023 Patient encounter procedure [facility] Start: 10-19-2023 Diabetic foot examination Foot Exam [facility] Start: 10-08-2023 End: 10-08-2023 Patient encounter procedure 10/08/2023 11:15 AM EST Office Visit [facility] Physicians [facility] [place] [address] [place] [address] Mary Vargas MD [address] [place] [address] [facility] Physicians [facility] [place] Start: 09-11-2023 Hemoglobin A1c measurement [facility] Start: 08-25-2023 End: 08-25-2024 Basic metabolic [...] disease (CMS/HCC) Expected: 08/25/2023 (Approximate), Expires: 08/25/2024 [facility] Work Phone: Comment on above: Expected: 08/25/2023 (Approximate), Expi res: 08/25/2024 Start: 07-02-2023 COVID-19 Vaccine () COVID-19 Vaccine () [facility] Start: 07-02-2023 Influenza vaccination [facility] Start: 06-21-2023 End: 06-21-2023 Patient encounter procedure 06/21/2023 1:15 PM EDT Office Visit [facility] Physicians [facility] [place] [address] [place] [phone] Paty Ortega, TRISTAN [address] [place] [address] [facility] [place] Start: 06-19-2023 Diabetic foot examination Foot Exam [facility] Start: 06-01-2023 End: 02-20-2024 Comprehensive metabolic 2000 panel - Serum or Plasma Comprehensive Metabolic Panel Lab Routine Type 1 diabetes mellitus with diabetic neuropathy (HCC) Expected: 06/01/2023, Expires: 02/20/2024 [facility] Work Phone: Comment on above: Expected: 06/01/2023, Expires: 4 Start: 06-01-2023 End: 02-20-2024 Hemoglobin A1c/Hemoglobin.total in Blood Hemoglobin A1c Lab Routine Type 1 diabetes mellitus with diabetic neuropathy (HCC) Expected: 06/01/2023, Expires: 02/20/2024 [facility] Comment on above: Expected: 06/01/2023, Expires: 4 Start: 05-14-2023 Hemoglobin A1c measurement A1C [facility] Start: 02-19-2023 End: 02-19-2023 Patient encounter procedure 02/19/2023 Office Visit Endocrinology Paty Ortega CNP [address] [place] [address] [facility] [place] Start: 02-13-2023 Diabetic foot examination Foot Exam [facility] Start: 02-05-2023 End: 02-05-2023 Patient encounter procedure 02/05/2023 Appointment Cardiology Paty Ortega CNP [address] [place] [address] [facility] Start: 01-30-2023 End: 10-20-2023 Complete blood count with white cell differential, manual CBC and Differential Lab Routine Type 1 diabetes mellitus with diabetic neuropathy (HCC) Expected: 01/30/2023, Expires: 10/20/2023 [facility] Comment on above: Expected: 01/30/2023, Expires: 3 Start: 01-30-2023 End: 10-20-2023 Comprehensive metabolic 2000 panel - Serum or Plasma Comprehensive Metabolic Panel Lab Routine Type 1 diabetes mellitus with diabetic neuropathy (HCC) Expected: 01/30/2023, Expires: 10/20/2023 [facility] Comment on above: Expected: 01/30/2023, Expires: 3 Start: 01-30-2023 End: 10-20-2023 Hemoglobin A1c/Hemoglobin.total in Blood Hemoglobin A1c Lab Routine Type 1 diabetes mellitus with diabetic neuropathy (HCC) Expected: 01/30/2023, Expires: 10/20/2023 [facility] Comment on above: Expected: 01/30/2023, Expires: 3 Start: 01-30-2023 End: 10-20-2023 Lipid 1996 panel - Serum or Plasma Lipid Panel Lab Routine Type 1 diabetes mellitus with diabetic neuropathy (HCC) Expected: 01/30/2023, Expires: 10/20/2023 [facility] Comment on above: Expected: 01/30/2023, Expires: 3 Start: 01-30-2023 End: 10-19-2023 Microalbumin measurement, urine, quantitative Microalbumin/Creatinine Ratio, UR Random Lab Routine Type 1 diabetes mellitus with diabetic neuropathy (HCC) Expected: 01/30/2023, Expires: 10/19/2023 [facility] Comment on above: Expected: 01/30/2023, Expires: [...] diabetic neuropathy (HCC) Expected: 01/30/2023, Expires: 10/20/2023 [facility] Comment on above: Expected: 01/30/2023, Expires: 3 Start: 01-30-2023 End: 10-20-2023 Thyroxine (T4) free [Mass/volume] in Serum or Plasma T4, Free Lab Routine Type 1 diabetes mellitus with diabetic neuropathy (HCC) Expected: 01/30/2023, Expires: 10/20/2023 [facility] Comment on above: Expected: 01/30/2023, Expires: 3 Start: 01-25-2023 [email or web address], Provider: Zoila Lopez, Status: Pen, Time: 2:45 PM [email or web address], Provider: Zoila Lopez, Status: Pen, Time: 2:45 PM [facility] Work Phone: Start: 01-18-2023 PTRECHECKA, Provider: Carlene Whitehead, Status: Pen, Time: 2:00 PM PTRECHECKA, Provider: Carlene Whitehead, Status: Pen, Time: 2:00 PM [facility] Work Phone: Start: 01-15-2023 [email or web address], Provider: Chaya Chan, Status: Pen, Time: 10:00 AM [email or web address], Provider: Chaya Chan, Status: Pen, Time: 10:00 AM [facility] Start: 01-13-2023 [email or web address], Provider: Chaya Chan, Status: Pen, Time: 10:00 AM [email or web address], Provider: Chaya Chan, Status: Pen, Time: 10:00 AM [facility] Work Phone: Start: 01-08-2023 [email or web address], Provider: Chaya Chan, Status: Pen, Time: 10:00 AM [email or web address], Provider: Chaya Chan, Status: Pen, Time: 10:00 AM [facility] Start: 01-06-2023 [email or web address], Provider: Zoila Lopez, Status: Pen, Time: 10:00 AM [email or web address], Provider: Zoila Lopez, Status: Pen, Time: 10:00 AM [facility]: Start: 01-01-2023 [email or web address], Provider: Zoila Lopez, Status: Pen, Time: 10:45 AM PTFUADULT4, Provider: Zoila Lopez, Status: Pen, Time: 10:45 AM [facility]: Start: 12-30-2022 [email or web address], Provider: Zoila Lopez, Status: Pen, Time: 4:15 PM [email or web address], Provider: Zoila Lopez, Status: Pen, Time: 4:15 PM [facility] Work Phone: Start: 12-25-2022 [email or web address], Provider: Chaya Chan, Status: Pen, Time: 7:45 AM PTFUADULT4, Provider: Chaya Chan, Status: Pen, Time: 7:45 AM [facility] Start: 10-19-2022 End: 10-19-2022 Patient encounter procedure 10/19/2022 Office Visit Endocrinology Paty Ortega, FLOOR ASSEMBLER [address] [place] [address] [facility] [place] Start: 10-13-2022 Diabetic foot examination Foot Exam [facility] Start: 09-08-2022 Hemoglobin A1c measurement A1C [facility] Start: 07-02-2022 Influenza vaccination [facility] Start: 06-20-2022 Diabetic foot examination Foot Exam [facility] Start: 06-19-2022 End: 06-19-2022 Patient encounter procedure 06/19/2022 Office Visit Endocrinology Paty Ortega CNP [address] [place] [address] [facility] Physicians [facility] [place] Start: 06-11-2022 Microalbumin measurement, urine, quantitative Urine Microalbumin [facility] Start: 05-27-2022 History and physical examination, annual for health maintenance Wellness Visit [facility] Start: 05-27-2022 Medicare Wellness Visit Medicare Wellness Visit [facility] Start: 04-13-2022 Hemoglobin A1c measurement A1C [facility] Start: 03-06-2022 COVID-19 Vaccine (4 - Booster for Moderna series) COVID-19 Vaccine (4 - Booster for Moderna series) [facility] Start: 02-18-2022 Diabetic foot examination Foot Exam [facility] Start: 02-13-2022 End: 02-13-2022 Patient encounter procedure 02/13/2022 Office Visit Endocrinology Mary Vargas MD [address] [place] [address] [facility] Physicians [facility] [place] Start: 01-30-2022 End: 10-14-2022 Comprehensive metabolic 2000 panel - Serum or Plasma Comprehensive Metabolic Panel Lab Routine Type 1 diabetes mellitus with diabetic neuropathy (HCC) Expected: 01/30/2022, Expires: 10/14/2022 [facility] Work Phone: Comment on above: Expected: 01/30/2022, Expires: 2 Start: 01-30-2022 End: 10-14-2022 Hemoglobin A1c/Hemoglobin.total in Blood Hemoglobin A1c Lab Routine Type 1 diabetes mellitus with diabetic neuropathy (HCC) Expected: 01/30/2022, Expires: 10/14/2022 [facility] Comment on above: Expected: 01/30/2022, Expires: 2 Start: 01-30-2022 End: 10-14-2022 Lipid 1996 panel - Serum or Plasma Lipid Panel Lab Routine Type 1 diabetes mellitus with diabetic neuropathy (HCC) Expected: 01/30/2022, Expires: 10/14/2022 [facility] Comment on above: Expected: 01/30/2022, Expires: 2 Start: 01-01-2022 COVID-19 Vaccine (4 - Booster for Moderna series) COVID-19 Vaccine (4 - Booster for Moderna series) [facility] Start: 01-01-2022 COVID-19 Vaccine (4 - Moderna series) COVID-19 Vaccine (4 - Moderna series) [facility] Start: 12-12-2021 Hemoglobin A1c measurement A1C [facility] Start: 12-12-2021 Microalbumin measurement, urine, quantitative Urine Microalbumin [facility] Start: 12-12-2021 Urine screening for protein [facility] Start: 10-18-2021 Diabetic foot examination Foot Exam [facility] Start: 10-14-2021 Glaucoma screening [facility] Start: 10-13-2021 End: 10-13-2021 Patient encounter procedure 10/13/2021 Office Visit Endocrinology Paty Ortega, FLOOR ASSEMBLER [address] [place] [address] [facility] [place] Start: 10-03-2021 Albumin DL <= 20 mg/L (U) [Mass/Vol] Urine Microalbumin [facility] Start: 10-03-2021 Microalbumin measurement, urine, quantitative Urine Microalbumin [facility] Start: 10-01-2021 End: 06-21-2022 Comprehensive metabolic 2000 panel - Serum or Plasma Comprehensive Metabolic Panel Lab Routine Type 1 diabetes mellitus with diabetic polyneuropathy (HCC) Expected: 10/01/2021, Expires: 06/21/2022 [facility] Work Phone: Comment on above: Expected: 10/01/2021, Expires: 2 Start: 10-01-2021 End: 06-21-2022 Hemoglobin A1c/Hemoglobin.total in Blood Hemoglobin A1c Lab Routine Type 1 diabetes mellitus with diabetic polyneuropathy (HCC) Expected: 10/01/2021, Expires: 06/21/2022 [facility] Comment on above: Expected: 10/01/2021, Expires: 2 Start: 10-01-2021 End: 06-21-2022 Thyrotropin [Units/volume] in Serum or Plasma TSH Lab Routine Type 1 diabetes mellitus with diabetic polyneuropathy (HCC) Expected: 10/01/2021, Expires: 06/21/2022 [facility] Comment on above: Expected: 10/01/2021, Expires: 2 Start: 10-01-2021 End: 06-21-2022 Thyroxine (T4) free [Mass/volume] in Serum or Plasma T4, Free Lab Routine Type 1 diabetes mellitus with diabetic polyneuropathy (HCC) Expected: 10/01/2021, Expires: 06/21/2022 [facility] Comment on above: Expected: 10/01/2021, Expires: 2 Start: 09-11-2021 Hemoglobin A1c measurement A1C [facility] Start: 08-13-2021 Hemoglobin A1c measurement A1C [facility] Start: 07-31-2021 COVID-19 Vaccine (3 - Booster for Moderna series) COVID-19 Vaccine (3 - Booster for Moderna series) [facility] Start: 07-04-2021 Prostate specific antigen measurement PSA Level [facility] Start: 07-02-2021 Influenza vaccination Sequential Influenza Vaccine (#1) [facility] Start: 06-20-2021 End: 06-20-2021 Patient encounter procedure 06/20/2021 Office Visit Endocrinology Paty Ortega CNP [address] [place] [address] [phone] [facility] [place] Start: 04-16-2021 History and physical examination, annual for health maintenance Wellness Visit [facility] Start: 04-03-2021 HbA1c (Bld) [Mass fraction] A1C [facility] Start: 02-18-2021 End: 02-18-2021 Office Visit 02/18/2021 Office Visit Endocrinology Mary Vargas MD [address] [place] [address] [phone] [facility] Start: 02-02-2021 End: 10-19-2021 Comprehensive metabolic 2000 panel Comprehensive Metabolic Panel Lab Routine Type 1 diabetes mellitus with diabetic polyneuropathy (HCC) Expected: 02/02/2021, Expires: 10/19/2021 [facility] Comment on above: Expected: 02/02/2021, Expires: Start: 02-02-2021 End: 10-19-2021 Free T4 [Mass/Vol] T4, Free Lab Routine Type 1 diabetes mellitus with diabetic polyneuropathy (HCC) Expected: 02/02/2021, Expires: 10/19/2021 [facility] Comment on above: Expected: 02/02/2021, Expires: Start: 02-02-2021 End: 10-19-2021 HbA1c (Bld) [Mass fraction] Hemoglobin A1c Lab Routine Type 1 diabetes mellitus with diabetic polyneuropathy (HCC) Expected: 02/02/2021, Expires: 10/19/2021 [facility] Comment on above: Expected: 02/02/2021, Expires: Start: 02-02-2021 End: 10-19-2021 TSH Qn TSH Lab Routine Type 1 diabetes mellitus with diabetic polyneuropathy (HCC) Expected: 02/02/2021, Expires: 10/19/2021 [facility] Comment on above: Expected: 02/02/2021, Expires: Start: 12-11-2020 HbA1c (Bld) [Mass fraction] A1C [facility] Start: 11-16-2020 Diabetic foot examination Foot Exam [facility] Start: 10-18-2020 End: 10-18-2020 Office Visit 10/18/2020 Office Visit Endocrinology Keeley Patton, FLOOR ASSEMBLER [address] [address] [phone] [facility] Start: 10-01-2020 End: 06-19-2021 Comprehensive metabolic 2000 panel Comprehensive Metabolic Panel Lab Routine Type 1 diabetes mellitus with diabetic polyneuropathy (HCC) Expected: 10/01/2020, Expires: 06/19/2021 [facility] Comment on above: Expected: 10/01/2020, Expires: Start: 10-01-2020 End: 06-19-2021 HbA1c (Bld) [Mass fraction] Hemoglobin A1c Lab Routine Type 1 diabetes mellitus with diabetic polyneuropathy (HCC) Expected: 10/01/2020, Expires: 06/19/2021 [facility] Comment on above: Expected: 10/01/2020, Expires: 1 Start: 10-01-2020 End: 06-19-2021 Lipid 1996 panel Lipid Panel Lab Routine Type 1 diabetes mellitus with diabetic polyneuropathy (HCC) Expected: 10/01/2020, Expires: 06/19/2021 [facility] Comment on above: Expected: 10/01/2020, Expires: 1 Start: 10-01-2020 End: 06-18-2021 Microalbumin measurement, urine, quantitative Microalbumin/Creatinine Ratio, UR Random Lab Routine Type 1 diabetes mellitus with diabetic polyneuropathy (HCC) Expected: 10/01/2020, Expires: 06/18/2021 [facility] Comment on above: Expected: 10/01/2020, Expires: 1 Start: 07-17-2020 Diabetic foot examination FOOT EXAM [facility] Start: 07-02-2020 Influenza vaccination Sequential Influenza Vaccine (#1) [facility] Start: 07-02-2020 Influenza vaccination given Sequential Influenza Vaccine (#1) [facility] Start: 05-03-2020 HbA1c (Bld) [Mass fraction] A1C [facility] Start: 03-15-2020 End: 03-15-2020 Office Visit 03/15/2020 Office Visit Endocrinology Keeley Patton, FLOOR ASSEMBLER [address] [address] [phone] [facility] Start: 03-13-2020 Diabetic foot examination FOOT EXAM [facility] Start: 01-02-2020 HbA1c (Bld) [Mass fraction] A1C [facility] Start: 11-16-2019 End: 11-16-2019 Office Visit 11/16/2019 Office Visit Endocrinology Paty Ortega CNP [address] [address] [phone] [facility] Start: 11-11-2019 Diabetic foot examination FOOT EXAM [facility] Start: 07-17-2019 End: 07-17-2019 Office Visit 07/17/2019 Office Visit Endocrinology Keeley Patton, TRISTAN [address] [place] [address] [phone] [facility] Start: 07-05-2019 Diabetic foot examination FOOT EXAM [facility] Start: 07-02-2019 Influenza vaccination given [facility] Start: 03-13-2019 End: 03-13-2019 Ambulatory 03/13/2019 Office Visit Endocrinology Mary Vargas MD [address] [place] [address] [phone] [facility] Start: 02-28-2019 Diabetic foot examination (regime/therapy) FOOT EXAM [facility] Start: 01-31-2019 Pneumococcal vaccination PNEUMOCOCCAL VACCINE AGE 65+ (2 of 2 - PPSV23) [facility] Start: 2018 Respiratory Syncytial Virus Immunization: Risk, 60-74 Risk, or 75+ (1 - 1-dose 75+ series) Respiratory Syncytial Virus Immunization: Risk, 60-74 Risk, or 75+ (1 - 1-dose 75+ series) [facility] Start: 2018 RSV High Risk: (Elderly (60+) or Population) (1 - 1-dose 75+ series) RSV High Risk: (Elderly (60+) or Population) (1 - 1-dose 75+ series) [facility] Start: 11-08-2018 End: 11-08-2018 Ambulatory 11/08/2018 Office Visit Endocrinology Ya Parker PA-C [address] [place] [address] [phone] [facility] Start: 10-29-2018 Diabetic foot examination (regime/therapy) FOOT EXAM [facility] Work Phone: Start: 07-05-2018 End: 07-05-2018 Ambulatory 07/05/2018 Office Visit Endocrinology Paty Ortega CNP [address] [place] [address] [phone] [facility] Start: 07-02-2018 Influenza vaccination [facility] Start: 07-02-2018 Influenza vaccination given SEQUENTIAL INFLUENZA VACCINE (#1) [facility] Start: 02-28-2018 Ambulatory 02/28/2018 Office Visit Endocrinology Chon Alexandra BuckTRISTAN titus [address] [place] [address] [phone] [facility] Start: 02-15-2018 3 comp foot exam completed FOOT EXAM [facility] Work Phone: Start: 10-29-2017 Ambulatory 10/29/2017 Office Visit Endocrinology Mary Vargas MD [address] [place] [address] [phone] [facility] Start: 07-02-2017 Influenza vaccination SEQUENTIAL INFLUENZA VACCINE (#1) [facility] Work Phone: Start: 07-02-2017 SEQUENTIAL INFLUENZA VACCINE (#1) SEQUENTIAL INFLUENZA VACCINE (#1) [facility] Work Phone: Start: 05-10-2017 HbA1c [facility] Work Phone: Start: 2008 ABDOMINAL AORTIC ULTRASOUND ABDOMINAL AORTIC ULTRASOUND [facility] Work Phone: Start: 2008 Fall risk assessment [facility] Start: 2008 Pneumococcal vaccination PNEUMOCOCCAL VACCINE AGE 65+ (1 of 2 - PCV13) [facility] Work Phone: Start: 2008 PNEUMOCOCCAL VACCINE AGE 65+ (1 of 2 - PCV13) PNEUMOCOCCAL VACCINE AGE 65+ (1 of 2 - PCV13) [facility] Work Phone: Start: 2008 Ultrasound scan of abdominal aorta ABDOMINAL AORTIC ULTRASOUND [facility] Work Phone: Start: 2003 RSV patients and/or patients aged 60+ years (1 - 1-dose 60+ series) RSV patients and/or patients aged 60+ years (1 - 1-dose 60+ series) [facility] Start: 2003 Zoster vacc, sc ZOSTER VACCINE [facility] Work Phone: Start: 1993 Administration of herpes zoster vaccine ZOSTER VACCINES (1 of 2) [facility] Start: 1993 ZOSTER VACCINES (1 of 2) ZOSTER VACCINES (1 of 2) [facility] Start: 1965 DTaP/Tdap/Td Vaccines (1 - Tdap) DTaP/Tdap/Td Vaccines (1 - Tdap) [facility] Start: 1961 Hepatitis C antibody, confirmatory test Hepatitis C Screening [facility] Start: 1961 Hepatitis C screening Hepatitis C Screening [facility] Start: 1955 Adolescent depression screening assessment Depression Screening (PHQ9) [facility] Start: 1955 Depression screening using PHQ-9 (Patient Health Questionnaire 9) score [facility] Start: 1953 Albumin Test strip detection limit <= 20 mg/L mass conc (U) URINE MICROALBUMIN [facility] Work Phone: Start: 1953 Diabetic foot examination Diabetes: Foot Exam [facility] Start: 1953 Glaucoma screening [facility] Start: 1953 Ophthalmic examination and evaluation OPHTHALMOLOGY EXAM [facility] Start: 1953 Urine, microalbumin URINE MICROALBUMIN [facility] Work Phone: Start: 1949 Pneumococcal Vaccine: Age 65+ (1 of 2 - PPSV23) Pneumococcal Vaccine: Age 65+ (1 of 2 - PPSV23) [facility] Start: 1946 History and physical examination, annual for health maintenance Wellness Visit [facility] Start: 1943 End: 1943 Low-dose CT Lung Cancer Screen Low-dose CT Lung Cancer Screen [facility] Work Phone: Start: 1943 Protein mass conc COLONOSCOPY [facility] Start: 1943 Screening colonoscopy COLONOSCOPY [facility] Work Phone: Start: 1943 End: 1943 Screening for malignant neoplasm of lung Low-dose CT Lung Cancer Screen [facility] Start: 1943 End: 1943 Tetanus vaccination [facility] Start: 1943 Colonoscopy COLONOSCOPY [facility] Work Phone: Start: 1943 Cyanocobalamin vitamin b-12 Vitamin B-12 [facility] Start: 1943 Diabetes: Celiac Disease Screening Diabetes: Celiac Disease Screening [facility] Start: 1943 Fall risk assessment Falls Risk Assessment [facility] Start: 1943 Low dose computed tomography of chest without contrast Low-dose CT Lung Cancer Screen [facility] Start: 1943 Medicare Annual Wellness Visit Medicare Annual Wellness Visit (AWV) [facility] Start: 1943 Prostate specific antigen measurement PSA Level [facility] Start: 1943 Screening for malignant neoplasm of colon Colorectal Cancer Screening: Colonoscopy [facility] Start: 1943 TETANUS EVERY 10 YR TETANUS EVERY 10 YR [facility] Work Phone: Alanine aminotransferase [Enzymatic activity/volume] in Serum or Plasma [facility] Alanine aminotransferase [Enzymatic activity/volume] in Serum or Plasma [facility] Alanine aminotransferase [Enzymatic activity/volume] in Serum or Plasma [facility] Albumin [Mass/volume ] in Serum or Plasma [facility] Albumin [Mass/volume ] in Serum or Plasma [facility] Albumin [Mass/volume ] in Serum or Plasma [facility] Alkaline phosphatase [Enzymatic activity/volume] in Serum or Plasma [facility] Alkaline phosphatase [Enzymatic activity/volume] in Serum or Plasma [facility] Alkaline phosphatase [Enzymatic activity/volume] in Serum or Plasma [facility] Anion gap in Serum o r Plasma [facility] Anion gap in Serum o r Plasma [facility] Anion gap in Serum o r Plasma [facility] aPTT in Platelet poo r plasma by Coagulation assay aPTT - baseline Lab STAT As needed (Lab) for 1 Occurrences starting 11/26/2023 [facility] Work Phone: Comment on above: As needed (Lab) for 1 Occurrences starti ng 11/26/2023 Bacteria identified in Blood by Culture [facility] Work Phone: End: 11-26-2023 Bacteria identified in Blood by Culture [facility] Work Phone: Comment on above: STAT (Lab) for 1 Occurrences starting until 11/26/2023 Bacteria identified in Blood by Culture [facility] Work Phone: End: 10-27-2024 Bacteria identified in Unspecified specimen by Aerobe culture [facility] Work Phone: Comment on above: Once for 1 Occurrences starting 10/27/20 until 10/27/2024 End: 06-18-2018 Basic metabolic 2000 panel Basic Metabolic Panel Routine Type 1 diabetes mellitus with diabetic neuropathy (HCC) 1 Occurrences starting 06/17/2017 until 06/18/2018 [facility] Work Phone: Comment on above: 1 Occurrences starting 06/17/2017 until 06/18/2018 End: 10-14-2023 Basic metabolic 2000 panel - Serum or Plasma Basic Metabolic Panel Lab Routine Morning draw (Lab) for 3 Occurrences starting 10/12/2023 until 10/14/2023, 1 completed [facility] Work Phone: Comment on above: Morning draw (Lab) for 3 Occurrences sta rting 10/12/2023 until 10/14/2023, 1 completed End: 03-09-2026 Basic metabolic 2000 panel - Serum or Plasma Basic metabolic panel Lab Routine 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 NSTEMI (non-ST elevated myocardial infarction) (HCC) 1 Occurrences starting 03/09/2025 until 03/09/2026 [facility] Work Phone: Comment on above: 1 Occurrences starting 03/09/2025 until 03/09/2026 Bilirubin, total measurement [facility] Bilirubin, total measurement [facility] Bilirubin, total measurement [facility] BUN/Creatinine ratio [facility] BUN/Creatinine ratio [facility] BUN/Creatinine ratio [facility] Calcium [Mass/volume ] in Serum or Plasma [facility] Calcium [Mass/volume ] in Serum or Plasma [facility] Calcium [Mass/volume ] in Serum or Plasma [facility] Carbon dioxide, tota l [Moles/volume] in Central venous blood [facility] Carbon dioxide, tota l [Moles/volume] in Central venous blood [facility] Carbon dioxide, tota l [Moles/volume] in Central venous blood [facility] End: 04-20-2022 Carotid artery doppler assessment Ultrasound doppler carotid Vascular Ultrasound Routine Bilateral carotid artery stenosis 1 Occurrences starting 02/18/2021 until 04/20/2022 [facility] Comment on above: 1 Occurrences starting 02/18/2021 until 04/20/2022 End: 12-20-2023 Carotid artery doppler assessment Ultrasound doppler carotid Vascular Ultrasound Routine Bilateral carotid artery stenosis 1 Occurrences starting 10/19/2022 until 12/20/2023 [facility] Work Phone: Comment on above: 1 Occurrences starting 10/19/2022 until 12/20/2023 Cath plmt l hrt & ar ts w/njx & angio img s&i LEFT HEART CATH Cardiovascular stress test abnormal Fatigue, unspecified type SOB (shortness of breath) [facility] End: 02-28-2019 CBC and Differential CBC and Differential Routine Type 1 diabetes mellitus with diabetic neuropathy (HCC) 1 Occurrences starting 02/28/2018 until 02/28/2019 [facility] CBC panel - Blood by Automated count CBC Lab STAT As needed (Lab) for 1 Occurrences starting 11/26/2023 [facility] Work Phone: Comment on above: As needed (Lab) for 1 Occurrences starti ng 11/26/2023 End: 12-02-2023 CBC panel - Blood by Automated count CBC Lab STAT Every other day (Lab) for 3 Occurrences starting 11/28/2023 until 12/02/2023 [facility] Work Phone: Comment on above: Every other day (Lab) for 3 Occurrences starting 11/28/2023 until 12/02/2023 End: 10-14-2023 CBC W Auto Differential panel - Blood CBC and Auto Differential Lab Routine Morning draw (Lab) for 3 Occurrences starting 10/12/2023 until 10/14/2023, 2 completed [facility] Work Phone: Comment on above: Morning draw (Lab) for 3 Occurrences sta rting 10/12/2023 until 10/14/2023, 2 completed Cholesterol [Mass/volume] in Serum or Plasma [facility] Cholesterol in HDL [Mass/volume] in Serum or Plasma [facility] End: 11-11-2019 Complete blood count with white cell differential, manual CBC and Differential Routine Type 1 diabetes mellitus with diabetic neuropathy (HCC) 1 Occurrences starting 11/11/2018 until 11/11/2019 [facility] Comment on above: 1 Occurrences starting 11/11/2018 until 11/11/2019 End: 03-13-2020 Complete blood count with white cell differential, manual CBC and Differential Routine 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) 1 Occurrences starting 03/13/2019 until 03/13/2020 [facility] Comment on above: 1 Occurrences starting 03/13/2019 until 03/13/2020 End: 02-19-2022 Complete blood count with white cell differential, manual CBC and Differential Lab Routine Type 1 diabetes mellitus with diabetic polyneuropathy (HCC) 1 Occurrences starting 02/18/2021 until 02/19/2022 [facility] Comment on above: 1 Occurrences starting 02/18/2021 until 02/19/2022 End: 02-14-2023 Complete blood count with white cell differential, manual CBC and Differential Lab Routine Type 1 diabetes mellitus with diabetic neuropathy (HCC) 1 Occurrences starting 02/13/2022 until 02/14/2023 [facility] Work Phone: Comment on above: 1 Occurrences starting 02/13/2022 until 02/14/2023 End: 02-18-2025 Complete blood count with white cell differential, manual CBC and Differential Lab Routine Type 1 diabetes mellitus with diabetic neuropathy (HCC) 1 Occurrences starting 02/18/2024 until 02/18/2025 [facility] Comment on above: 1 Occurrences starting 02/18/2024 until 02/18/2025 End: 07-22-2025 Complete blood count with white cell differential, manual CBC and Differential Lab Routine Type 1 diabetes mellitus with diabetic neuropathy (HCC) 1 Occurrences starting 07/21/2024 until 07/22/2025 [facility] Comment on above: 1 Occurrences starting 07/21/2024 until 07/22/2025 End: 03-13-2026 Complete blood count with white cell differential, manual CBC and Differential Lab Routine Type 1 diabetes mellitus with diabetic neuropathy (HCC) 1 Occurrences starting 03/12/2025 until 03/13/2026 [facility] Comment on above: 1 Occurrences starting 03/12/2025 until 03/13/2026 End: 10-27-2025 Complete PFT with Pre and Post Bronchodilator Complete PFT with Pre and Post Bronchodilator PFT Routine Pulmonary emphysema, unspecified emphysema type (HCC) 1 Occurrences starting 10/27/2024 until 10/27/2025 [facility] Comment on above: 1 Occurrences starting 10/27/2024 until 10/27/2025 End: 07-06-2019 Comprehensive metabolic 2000 panel Comprehensive Metabolic Panel Routine Type 1 diabetes mellitus with diabetic neuropathy (HCC) 1 Occurrences starting 07/05/2018 until 07/06/2019 [facility] Comment on above: 1 Occurrences starting 07/05/2018 until 07/06/2019 End: 11-11-2019 Comprehensive metabolic 2000 panel Comprehensive Metabolic Panel Routine Essential hypertension 1 Occurrences starting 11/11/2018 until 11/11/2019 [facility] Comment on above: 1 Occurrences starting 11/11/2018 until 11/11/2019 End: 07-17-2020 Comprehensive metabolic 2000 panel Comprehensive Metabolic Panel Lab Routine Type 1 diabetes mellitus with diabetic polyneuropathy (HCC) 1 Occurrences starting 07/17/2019 until 07/17/2020 [facility] Comment on above: 1 Occurrences starting 07/17/2019 until 07/17/2020 End: 11-16-2020 Comprehensive metabolic 2000 panel Comprehensive Metabolic Panel Lab Routine Type I diabetes mellitus with neurological manifestations, uncontrolled (HCC) 1 Occurrences starting 11/16/2019 until 11/16/2020 [facility] Comment on above: 1 Occurrences starting 11/16/2019 until 11/16/2020 End: 03-13-2020 Comprehensive metabolic 2000 panel Comprehensive Metabolic Panel Routine 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) 1 Occurrences starting 03/13/2019 until 03/13/2020 [facility] Comment on above: 1 Occurrences starting 03/13/2019 until 03/13/2020 End: 02-19-2022 Comprehensive metabolic 2000 panel - Serum or Plasma Comprehensive Metabolic Panel Lab Routine Type 1 diabetes mellitus with diabetic polyneuropathy (HCC) 1 Occurrences starting 02/18/2021 until 02/19/2022 [facility] Comment on above: 1 Occurrences starting 02/18/2021 until 02/19/2022 End: 02-14-2023 Comprehensive metabolic 2000 panel - Serum or Plasma Comprehensive Metabolic Panel Lab Routine Type 1 diabetes mellitus with diabetic neuropathy (HCC) 1 Occurrences starting 02/13/2022 until 02/14/2023 [facility] Comment on above: 1 Occurrences starting 02/13/2022 until 02/14/2023 End: 06-20-2023 Comprehensive metabolic 2000 panel - Serum or Plasma Comprehensive Metabolic Panel Lab Routine Type 1 diabetes mellitus with diabetic neuropathy (HCC) 1 Occurrences starting 06/19/2022 until 06/20/2023 [place] Work Phone: Comment on above: 1 Occurrences starting 06/19/2022 until 06/20/2023 End: 02-18-2025 Comprehensive metabolic 2000 panel - Serum or Plasma Comprehensive Metabolic Panel Lab Routine Type 1 diabetes mellitus with diabetic neuropathy (HCC) 1 Occurrences starting 02/18/2024 until 02/18/2025 [place] Work Phone: Comment on above: 1 Occurrences starting 02/18/2024 until 02/18/2025 End: 07-22-2025 Comprehensive metabolic 2000 panel - Serum or Plasma Comprehensive Metabolic Panel Lab Routine Type 1 diabetes mellitus with diabetic neuropathy (HCC) 1 Occurrences starting 07/21/2024 until 07/22/2025 [place] Work Phone: Comment on above: 1 Occurrences starting 07/21/2024 until 07/22/2025 End: 11-14-2025 Comprehensive metabolic 2000 panel - Serum or Plasma Comprehensive Metabolic Panel Lab Routine Type 1 diabetes mellitus with diabetic neuropathy (HCC) 1 Occurrences starting 11/13/2024 until 11/14/2025 [place] Work Phone: Comment on above: 1 Occurrences starting 11/13/2024 until 11/14/2025 End: 03-13-2026 Comprehensive metabolic 2000 panel - Serum or Plasma Comprehensive Metabolic Panel Lab Routine Type 1 diabetes mellitus with diabetic neuropathy (HCC) 1 Occurrences starting 03/12/2025 until 03/13/2026 [place] Work Phone: Comment on above: 1 Occurrences starting 03/12/2025 until 03/13/2026 End: 02-28-2019 Comprehensive metabolic panel [AGGREGATE] Comprehensive Metabolic Panel Routine Type 1 diabetes mellitus with diabetic neuropathy (HCC) Essential hypertension 1 Occurrences starting 02/28/2018 until 02/28/2019 [facility] End: 10-30-2018 Comprehensive metabolic panel [AGGREGATE] Comprehensive Metabolic Panel Routine Type 1 diabetes mellitus with diabetic neuropathy (HCC) Essential hypertension Pure hypercholesterolemia 1 Occurrences starting 10/29/2017 until 10/30/2018 [place] Work Phone: Creatinine [Mass/volume] in Serum or Plasma [facility] Creatinine [Mass/volume] in Serum or Plasma [facility] Creatinine [Mass/volume] in Serum or Plasma [facility] End: 11-26-2023 ECG 12 lead [facility] Work Phone: Comment on above: Once for 1 Occurrences starting 11/26/19 until 11/26/2023 Electrocardiogram, 12-lead PRN ACS symptoms Electrocardiogram, 12-lead PRN ACS symptoms ECG Routine As needed until discontinued starting 10/11/2023 [facility] Work Phone: Comment on above: As needed until discontinued starting Electrocardiogram, 12-lead PRN ACS symptoms Electrocardiogram, 12-lead PRN ACS symptoms ECG Routine As needed until discontinued starting 10/11/2023 [facility] Work Phone: Comment on above: As needed until discontinued starting Erythrocyte mean corpuscular volume determination [facility] Erythrocyte mean corpuscular volume determination [facility] Erythrocyte mean corpuscular volume determination [facility] End: 02-28-2019 External Lab Microalbumin/Creatinine External Lab Microalbumin/Creatinine Routine Type 1 diabetes mellitus with diabetic neuropathy (HCC) Essential hypertension 1 Occurrences starting 02/28/2018 until 02/28/2019 [facility] End: 11-11-2019 External Lab Microalbumin/Creatinine External Lab Microalbumin/Creatinine Routine Essential hypertension 1 Occurrences starting 11/11/2018 until 11/11/2019 [facility] Comment on above: 1 Occurrences starting 11/11/2018 until 11/11/2019 End: 02-19-2022 External Lab Microalbumin/Creatinine External Lab Microalbumin/Creatinine Lab Routine Type 1 diabetes mellitus with diabetic polyneuropathy (HCC) 1 Occurrences starting 02/18/2021 until 02/19/2022 [facility] Comment on above: 1 Occurrences starting 02/18/2021 until 02/19/2022 End: 02-14-2023 External Lab Microalbumin/Creatinine External Lab Microalbumin/Creatinine Lab Routine Type 1 diabetes mellitus with diabetic neuropathy (HCC) 1 Occurrences starting 02/13/2022 until 02/14/2023 [facility] Comment on above: 1 Occurrences starting 02/13/2022 until 02/14/2023 Glucose [Mass/volume ] in Serum or Plasma POCT GLUCOSE Point of Care Testing Routine 4x daily - AC and at bedtime until discontinued starting 10/11/2023 [facility] Work Phone: Comment on above: 4x daily - AC and at bedtime until disco ntinued starting 10/11/2023 End: 10-15-2023 Glucose [Mass/volume] in Serum or Plasma POCT GLUCOSE Point of Care Testing Routine 4 times daily before meals and at bedtime for 3 Days starting 10/12/2023 until 10/15/2023 [facility] Work Phone: Comment on above: 4 times daily before meals and at bedtim e for 3 Days starting 10/12/2023 until 10/15/2023 Glucose [Mass/volume ] in Serum or Plasma [facility] Glucose [Mass/volume ] in Serum or Plasma [facility] Glucose [Mass/volume ] in Serum or Plasma [facility] End: 02-28-2019 HbA1c Hemoglobin A1c Routine Type 1 diabetes mellitus with diabetic neuropathy (HCC) Essential hypertension 1 Occurrences starting 02/28/2018 until 02/28/2019 [facility] End: 10-30-2018 HbA1c Hemoglobin A1c Routine Type 1 diabetes mellitus with diabetic neuropathy (HCC) Essential hypertension Pure hypercholesterolemia 1 Occurrences starting 10/29/2017 until 10/30/2018 [facility] Work Phone: End: 07-17-2020 HbA1c (Bld) [Mass fraction] Hemoglobin A1c Lab Routine Type 1 diabetes mellitus with diabetic polyneuropathy (HCC) 1 Occurrences starting 07/17/2019 until 07/17/2020 [facility] Comment on above: 1 Occurrences starting 07/17/2019 until 07/17/2020 End: 11-16-2020 HbA1c (Bld) [Mass fraction] Hemoglobin A1c Lab Routine Type I diabetes mellitus with neurological manifestations, uncontrolled (HCC) 1 Occurrences starting 11/16/2019 until 11/16/2020 [facility] Comment on above: 1 Occurrences starting 11/16/2019 until 11/16/2020 End: 03-13-2020 HbA1c (Bld) [Mass fraction] Hemoglobin A1c Routine 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) 1 Occurrences starting 03/13/2019 until 03/13/2020 [facility] Comment on above: 1 Occurrences starting 03/13/2019 until 03/13/2020 Hematocrit [Volume Fraction] of Blood [facility] Hematocrit [Volume Fraction] of Blood [facility] Hematocrit [Volume Fraction] of [facility] Hemoglobin [Mass/volume] in Blood [facility] Hemoglobin [Mass/volume] in Blood [facility] Hemoglobin [Mass/volume] in Blood [facility] End: 02-19-2022 Hemoglobin A1c/Hemoglobin.total in Blood Hemoglobin A1c Lab Routine Type 1 diabetes mellitus with diabetic polyneuropathy (HCC) 1 Occurrences starting 02/18/2021 until 02/19/2022 [facility] Comment on above: 1 Occurrences starting 02/18/2021 until 02/19/2022 End: 02-14-2023 Hemoglobin A1c/Hemoglobin.total in Blood Hemoglobin A1c Lab Routine Type 1 diabetes mellitus with diabetic neuropathy (HCC) 1 Occurrences starting 02/13/2022 until 02/14/2023 [facility] Comment on above: 1 Occurrences starting 02/13/2022 until 02/14/2023 End: 06-20-2023 Hemoglobin A1c/Hemoglobin.total in Blood Hemoglobin A1c Lab Routine Type 1 diabetes mellitus with diabetic neuropathy (HCC) 1 Occurrences starting 06/19/2022 until 06/20/2023 [facility] Comment on above: 1 Occurrences starting 06/19/2022 until 06/20/2023 End: 02-18-2025 Hemoglobin A1c/Hemoglobin.total in Blood Hemoglobin A1c Lab Routine Type 1 diabetes mellitus with diabetic neuropathy (HCC) 1 Occurrences starting 02/18/2024 until 02/18/2025 [facility] Comment on above: 1 Occurrences starting 02/18/2024 until 02/18/2025 End: 07-22-2025 Hemoglobin A1c/Hemoglobin.total in Blood Hemoglobin A1c Lab Routine Type 1 diabetes mellitus with diabetic neuropathy (HCC) 1 Occurrences starting 07/21/2024 until 07/22/2025 [facility] Comment on above: 1 Occurrences starting 07/21/2024 until 07/22/2025 End: 11-14-2025 Hemoglobin A1c/Hemoglobin.total in Blood Hemoglobin A1c Lab Routine Type 1 diabetes mellitus with diabetic neuropathy (HCC) 1 Occurrences starting 11/13/2024 until 11/14/2025 [facility] Comment on above: 1 Occurrences starting 11/13/2024 until 11/14/2025 End: 03-13-2026 Hemoglobin A1c/Hemoglobin.total in Blood Hemoglobin A1c Lab Routine Type 1 diabetes mellitus with diabetic neuropathy (HCC) 1 Occurrences starting 03/12/2025 until 03/13/2026 [facility] Comment on above: 1 Occurrences starting 03/12/2025 until 03/13/2026 Hemoglobin A1c/Hemoglobin.total in Blood [facility] End: 07-06-2019 Hemoglobin A1c/Hemoglobin.total mass fraction (Bld) Hemoglobin A1c Routine Type 1 diabetes mellitus with diabetic neuropathy (HCC) 1 Occurrences starting 07/05/2018 until 07/06/2019 [facility] Comment on above: 1 Occurrences starting 07/05/2018 until 07/06/2019 End: 11-11-2019 Hemoglobin A1c/Hemoglobin.total mass fraction (Bld) Hemoglobin A1c Routine Type 1 diabetes mellitus with diabetic neuropathy (HCC) 1 Occurrences starting 11/11/2018 until 11/11/2019 [facility] Comment on above: 1 Occurrences starting 11/11/2018 until 11/11/2019 End: 06-18-2018 Hemoglobin A1c/Hemoglobin.total mass fraction (Bld) Hemoglobin A1c Routine Type 1 diabetes mellitus with diabetic neuropathy (HCC) 1 Occurrences starting 06/17/2017 until 06/18/2018 [facility] Work Phone: Comment on above: 1 Occurrences starting 06/17/2017 until 06/18/2018 Heparin unfractionat ed [Units/volume] in Platelet poor plasma by Chromogenic method [facility] Work Phone: Comment on above: As [...] starting 10/13/20 until 10/13/2023 Lactic acid measurement [facility] Legionella pneumophi la Ag [Presence] in Urine [facility] Leukocytes [#/volume ] in Blood [facility] Leukocytes [#/volume ] in Blood [facility] Leukocytes [#/volume ] in Blood [facility] End: 11-11-2019 Lipid 1996 panel Lipid Panel Routine Type 1 diabetes mellitus with diabetic neuropathy (HCC) 1 Occurrences starting 11/11/2018 until 11/11/2019 [facility] Comment on above: 1 Occurrences starting 11/11/2018 until 11/11/2019 End: 07-17-2020 Lipid 1996 panel Lipid Panel Lab Routine Pure hypercholesterolemia 1 Occurrences starting 07/17/2019 until 07/17/2020 [facility] Comment on above: 1 Occurrences starting 07/17/2019 until 07/17/2020 End: 02-19-2022 Lipid 1996 panel - Serum or Plasma Lipid Panel Lab Routine Type 1 diabetes mellitus with diabetic polyneuropathy (HCC) 1 Occurrences starting 02/18/2021 until 02/19/2022 [facility] Comment on above: 1 Occurrences starting 02/18/2021 until 02/19/2022 End: 02-18-2025 Lipid 1996 panel - Serum or Plasma Lipid Panel Lab Routine Type 1 diabetes mellitus with diabetic neuropathy (HCC) 1 Occurrences starting 02/18/2024 until 02/18/2025 [facility] Comment on above: 1 Occurrences starting 02/18/2024 until 02/18/2025 End: 07-22-2025 Lipid 1996 panel - Serum or Plasma Lipid Panel Lab Routine Type 1 diabetes mellitus with diabetic neuropathy (HCC) 1 Occurrences starting 07/21/2024 until 07/22/2025 [facility] Comment on above: 1 Occurrences starting 07/21/2024 until 07/22/2025 End: 11-14-2025 Lipid 1996 panel - Serum or Plasma Lipid Panel Lab Routine Type 1 diabetes mellitus with diabetic neuropathy (HCC) Pure hypercholesterolemia 1 Occurrences starting 11/13/2024 until 11/14/2025 [facility] Comment on above: 1 Occurrences starting 11/13/2024 until 11/14/2025 End: 03-13-2026 Lipid 1996 panel - Serum or Plasma Lipid Panel Lab Routine Type 1 diabetes mellitus with diabetic neuropathy (HCC) 1 Occurrences starting 03/12/2025 until 03/13/2026 [facility] Comment on above: 1 Occurrences starting 03/12/2025 until 03/13/2026 End: 02-28-2019 Lipid panel Lipid Panel Routine Type 1 diabetes mellitus with diabetic neuropathy (HCC) 1 Occurrences starting 02/28/2018 until 02/28/2019 [facility] Low density lipoprot ein cholesterol measurement [facility] Mean corpuscular hemoglobin concentration determination [facility] Mean corpuscular hemoglobin concentration determination [facility] Mean corpuscular hemoglobin concentration determination [facility] Mean corpuscular hemoglobin determination [facility] Mean corpuscular hemoglobin determination [facility] Mean corpuscular hemoglobin determination [facility] Measurement of renal function [facility] Measurement of renal function [facility] Measurement of renal function [facility] Natriuretic peptide. B prohormone N-Terminal [Mass/volume] in Serum or Plasma [facility] Neutrophil count [facility] Neutrophil count [facility] Neutrophil count [facility] Neutrophil percent differential count [facility] Neutrophil percent differential count [facility] Neutrophil percent differential count [facility] Noninvasive Ventilation Noninvas frank Ventilation Respiratory Care Routine For RT frequency use only for continuous procedures with task-based reminders at 8a and 8p until discontinued starting 11/26/2023 [facility] Work Phone: Comment on above: For RT frequency use only for continuous procedures with task-based reminders at 8a and 8p until discontinued starting 11/26/2023 Patient Education [facility] Work Phone: Patient referral [facility] Work Phone: Platelets [#/volume] in Blood [facility] Platelets [#/volume] in Blood [facility] Platelets [#/volume] in Blood [facility] Potassium measurement [facility] Potassium measurement [facility] Potassium measurement [facility] Procalcitonin [Mass/volume] in Serum or Plasma by Immunoassay [facility] End: 03-12-2020 Prostate specific Ag [Mass/Vol] PSA, Screen Routine Prostate cancer screening 1 Occurrences starting 03/13/2019 until 03/12/2020 [facility] Comment on above: 1 Occurrences starting 03/13/2019 until 03/12/2020 End: 02-13-2023 Prostate specific Ag [Mass/volume] in Serum or Plasma PSA, Screen Lab Routine Prostate cancer screening 1 Occurrences starting 02/13/2022 until 02/13/2023 [facility] Comment on above: 1 Occurrences starting 02/13/2022 until 02/13/2023 Prothrombin time (PT) Protime-IN R Lab STAT As needed (Lab) for 1 Occurrences starting 11/26/2023 [facility] Work Phone: Comment on above: As needed (Lab) for 1 Occurrences starti ng 11/26/2023 End: 10-29-2018 PSA, Screen PSA, Screen Routine Prostate cancer screening 1 Occurrences starting 10/29/2017 until 10/29/2018 [facility] Work Phone: Red blood cell count [facility] Red blood cell count [facility] Red blood cell count [facility] Red cell distributio n width determination [facility] Red cell distributio n width determination [facility] Red cell distributio n width determination [facility] End: 10-11-2023 Respiratory care eval and treat Respiratory care eval and treat Respiratory Care Routine Once for 1 Occurrences starting 10/11/2023 until 10/11/2023 [facility] Work Phone: Comment on above: Once for 1 Occurrences starting 10/11/20 23 until 10/11/2023 Respiratory pathogen s DNA and RNA panel - Respiratory specimen by ALICE with probe detection [facility] Serum chloride measurement [facility] Serum chloride measurement [facility] Serum chloride measurement [facility] Sodium measurement [facility] Sodium measurement [facility] Sodium measurement [facility] End: 10-21-2024 SPECT Heart perfusion NM Myocardial Perfusion Multiple SPECT Imaging Routine Congestive heart failure, unspecified HF chronicity, unspecified heart failure type (HCC) 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 1 Occurrences starting 10/21/2023 until 10/21/2024 [facility] Work Phone: Comment on above: 1 Occurrences starting 10/21/2023 until 10/21/2024 End: 11-11-2019 T4 free mass conc T4, Free Routine Type 1 diabetes mellitus with diabetic neuropathy (HCC) 1 Occurrences starting 11/11/2018 until 11/11/2019 [facility] Comment on above: 1 Occurrences starting 11/11/2018 until 11/11/2019 End: 02-18-2025 Thyrotropin [Units/volume] in Serum or Plasma TSH Lab Routine Type 1 diabetes mellitus with diabetic neuropathy (HCC) 1 Occurrences starting 02/18/2024 until 02/18/2025 [facility] Comment on above: 1 Occurrences starting 02/18/2024 until 02/18/2025 End: 07-22-2025 Thyrotropin [Units/volume] in Serum or Plasma TSH Lab Routine Type 1 diabetes mellitus with diabetic neuropathy (HCC) 1 Occurrences starting 07/21/2024 until 07/22/2025 [facility] Comment on above: 1 Occurrences starting 07/21/2024 until 07/22/2025 End: 11-14-2025 Thyrotropin [Units/volume] in Serum or Plasma TSH Lab Routine Type 1 diabetes mellitus with diabetic neuropathy (HCC) 1 Occurrences starting 11/13/2024 until 11/14/2025 [facility] Comment on above: 1 Occurrences starting 11/13/2024 until 11/14/2025 Thyrotropin [Units/volume] in Serum or Plasma TSH with Reflex Free T4 Lab Routine 02/12/2025 10:25 AM EDT [facility] Work Phone: End: 03-13-2026 Thyrotropin [Units/volume] in Serum or Plasma TSH Lab Routine Type 1 diabetes mellitus with diabetic neuropathy (HCC) 1 Occurrences starting 03/12/2025 until 03/13/2026 [facility] Comment on above: 1 Occurrences starting 03/12/2025 until 03/13/2026 End: 11-11-2019 Thyrotropin Qn TSH Routine Type 1 diabetes mellitus with diabetic neuropathy (HCC) 1 Occurrences starting 11/11/2018 until 11/11/2019 [facility] Comment on above: 1 Occurrences starting 11/11/2018 until 11/11/2019 End: 02-28-2019 Thyroxine (T4) free T4, Free Routine Type 1 diabetes mellitus with diabetic neuropathy (HCC) 1 Occurrences starting 02/28/2018 until 02/28/2019 [facility] End: 02-18-2025 Thyroxine (T4) free [Mass/volume] in Serum or Plasma T4, Free Lab Routine Type 1 diabetes mellitus with diabetic neuropathy (HCC) 1 Occurrences starting 02/18/2024 until 02/18/2025 [facility] Comment on above: 1 Occurrences starting 02/18/2024 until 02/18/2025 End: 07-22-2025 Thyroxine (T4) free [Mass/volume] in Serum or Plasma T4, Free Lab Routine Type 1 diabetes mellitus with diabetic neuropathy (HCC) 1 Occurrences starting 07/21/2024 until 07/22/2025 [facility] Comment on above: 1 Occurrences starting 07/21/2024 until 07/22/2025 End: 01-14-2026 Thyroxine (T4) free [Mass/volume] in Serum or Plasma T4, Free Lab Routine Type 1 diabetes mellitus with diabetic neuropathy (HCC) 1 Occurrences starting 11/13/2024 until 11/14/2025 [facility] Comment on above: 1 Occurrences starting 11/13/2024 until 11/14/2025 End: 03-13-2026 Thyroxine (T4) free [Mass/volume] in Serum or Plasma T4, Free Lab Routine Type 1 diabetes mellitus with diabetic neuropathy (HCC) 1 Occurrences starting 03/12/2025 until 03/13/2026 [facility] Comment on above: 1 Occurrences starting 03/12/2025 until 03/13/2026 Total cholesterol:HD L ratio measurement [facility] Total protein measurement [facility] Total protein measurement [facility] Total protein measurement [facility] Triglycerides measurement [facility] End: 02-28-2019 TSH TSH Routine Type 1 diabetes mellitus with diabetic neuropathy (HCC) 1 Occurrences starting 02/28/2018 until 02/28/2019 [facility] Urea nitrogen [Mass/volume] in Serum or Plasma [facility] Urea nitrogen [Mass/volume] in Serum or Plasma [facility] Urea nitrogen [Mass/volume] in Serum or Plasma [facility] Urine culture [facility] VLDL cholesterol measurement [facility] Immunizations Immunization Date Immunization Notes Care Provider Nancy amor 07-03-2020 zoster vaccine recombinant Ayanna Albert DO Work Phone: [facility] Work Phone: 04-17-2020 zoster vaccine recombinant Ayanna Albert DO Work Phone: [facility] Work Phone: 03-31-2019 pneumococcal polysaccharide vaccine, 23 valent Ayanna Albert DO Work Phone: [facility] Work Phone: 01-31-2018 pneumococcal conjuga te vaccine, 13 valent Ayanna Albert DO Work Phone: [facility] Work Phone: 11-10-2016 HEMOGLOBIN A1C Ya [facility] Work Phone: Payers Date Payer Category Payer Self-pay [id number] 2021 Medicare (Managed Care) [facility] [id number] 2021 Medicare PPO [employer] MEDICARE P JAYDON (PPO) [id number] 2021 Private Health Insurance [facility] [id number] 2015 Medicare [id number] 2015 Medicare [id number] 2015 Medicare [id number] 2015 Medicare [id number] 1943 Unknown [id number] 2.16.840.1.294328.3.579.2. 1068 1943 Unknown [id number] 2.16.840.1.648314.3.579.2. 1068 1943 Unknown [id number] 2.16.840.1.543490.3.579.2. 1068 1943 Unknown [id number] 2.16.840.1.460992.3.579.2. 1068 1943 Unknown [id number] 2.16.840.1.964933.3.579.2. 1068 1943 Unknown [id number] 2.16.840.1.355890.3.579.2. 1068 1943 Unknown [id number] 2.16.840.1.123753.3.579.2. 1068 1943 Unknown [id number] 2.16.840.1.238482.3.579.2. 1068 1943 Unknown [id number] 2.16.840.1.969918.3.579.2. 1068 1943 Unknown [id number] 2.16.840.1.349507.3.579.2. 1068 1943 Unknown [id number] 2.16.840.1.298551.3.579.2. 1068 1943 Unknown [id number] 2.16.840.1.101566.3.579.2. 356 1943 Unknown [id number] 2.16.840.1.950997.3.579.2. 1244 1943 Unknown [id number] 2.16.840.1.346930.3.579.2. 1244 1943 Unknown [id number] 2.16.840.1.590661.3.579.2. 1244 1943 Unknown [id number] 2.16.840.1.711878.3.579.2. 903 1943 Unknown [id number] 2.16.840.1.712688.3.579.2. 3 1943 Unknown [id number] 2.16.840.1.767649.3.579.2. 1243 1943 Unknown [id number] 2.16.840.1.667905.3.579.2. 1943 Unknown [id number]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 Progress Note - Nephrology 04/10/25 1226 MR#: [id number] Acct: [id number] Name: ENOC ARMANDO Rep #:[id number] : 1945 79 From: Denisha tirado MD PCP: Dr. Ryley Jeter MD Status:ADM IN Location: [place] [address] Subjective Subjective no new events Objective Data [...] 82.6 H, Lymph % (Auto) 9.4 L, [place] % (Auto) 7.0, Eos % (Auto) 0.1, [...] stage III (followed by Dr. Albert in [place]), COPD, diabetes mellitus admitted to the hospital [...] Cosigner Signature (if applicable): CC: ~ Signed [facility] Work Phone: 1(660) 167-865206-10-2025 Progress note [facility] Medical Records Department [address] [place] [address] Progress Note - Nephrology 04/10/25 1226 MR#: [id number] Acct: [id number] Name: ENOC ARMANDO Rep #:[id number] : 1945 79 From: Denisha tirado MD PCP: Dr. Ryley Jeter MD Status:ADM IN Location: [place] [address] Subjective Subjective no new events Objective Data [...] 82.6 H, Lymph % (Auto) 9.4 L, [place] % (Auto) 7.0, Eos % (Auto) 0.1, [...] stage III (followed by Dr. Albert in [place]), COPD, diabetes mellitus admitted to the hospital [...] Cosigner Signature (if applicable): CC: ~ Signed [facility]06-09-2025 Progress note [facility] Note Date/Time April 09, 2025 6:52p m [facility] Medical Records Department [address] [place] [address] Progress Note 04/09/25 1501 MR#: [id number] Acct: [id number] Name: ENOC ARMANDO Rep #:[id number] : 1945 79 From: Grace Arnold MD PCP: Dr. Ryley Jeter MD Status:ADM IN Location: [place] [address] Subjective Subjective Patient seen and examined in the presence of his nurse. He had no complaints andhad an uneventful night. Review of systems is otherwise negative. He is requesting to go home if he is not having dialysis. However, the medical fee clerk wants to monitor his labs overnight. He [...] 77.6 H, Lymph % (Auto) 14.1 L, [place] % (Auto) 7.4, Eos % (Auto) 0.1, [...] Cardiology was consulted and records requested from [place] showed he had cardiac cath at [place] 2 years ago and had 2 blockages [...] prophylaxis: heparin Charges/Coding Visit Charges Inpatient E&M: 61804 Subs Hosp L2 04/09/25 1852 <Electronically signed by Grace Arnold MD> Grace Arnold MD Cosigner Signature (if applicable): CC: ~ Signed [facility] Work Phone: 1(352) 261-933006-09-2025 Progress note [facility] Medical Records Department [address] [place] [address] Progress Note 04/09/25 1501 MR#: [id number] Acct: [id number] Name: ENOC ARMANDO Rep #:[id number] : 1945 79 From: Grace Arnold MD PCP: Dr. Ryley Jeter MD Status:ADM IN Location: [facility] [id number]- 1 Subjective Subjective Patient seen and examined in the presence of his nurse. He had no complaints andhad an uneventful night. Review of systems is otherwise negative. He is requesting to go home if he is not having dialysis. However, the medical fee clerk wants to monitor his labs overnight. He [...] 77.6 H, Lymph % (Auto) 14.1 L, [place] % (Auto) 7.4, Eos % (Auto) 0.1, [...] Cardiology was consulted and records requested from [place] showed he had cardiac cath at [place] 2 years ago and had 2 blockages [...] prophylaxis: heparin Charges/Coding Visit Charges Inpatient E&M: 75342 Subs Hosp L2 04/09/25 1852 Grace Arnold MD Cosigner Signature (if applicable): CC: ~ Signed [facility]06-09-2025 Progress note Author Denisha Thompson [facility] Note Date/Time April 09, 2025 10:39 am [facility] Medical Records Department [address] [place] [address] Progress Note - Nephrology 04/09/25 1037 MR#: [id number] Acct: [id number] Name: ENOC ARMANDO Rep #:[id number] : 1945 79 From: Denisha tirado MD PCP: Dr. Ryley Jeter MD Status:ADM IN Location: [place] [address] Subjective Subjective No new complaints today. Urine [...] 77.6 H, Lymph % (Auto) 14.1 L, [place] % (Auto) 7.4, Eos % (Auto) 0.1, [...] stage III (followed by Dr. Albert in [place]), COPD, diabetes mellitus admitted to the hospital [...] leaving today. Will notify hospitalist. 04/09/25 1038 <Electronically signed by Denisha Thompson MD> Cosigner Signature (if applicable): CC: ~ Signed [facility] Work Phone: 1(818) 831-885106-09-2025 Progress note [facility] Medical Records Department [address] [place] [address] Progress Note - Nephrology 04/09/25 1037 MR#: [id number] Acct: [id number] Name: ENOC ARMANDO Rep #:[id number] : 1945 79 From: Denisha tirado MD PCP: Dr. Ryley Jeter MD Status:ADM IN Location: [place] [address] Subjective Subjective No new complaints today. Urine [...] 77.6 H, Lymph % (Auto) 14.1 L, [place] % (Auto) 7.4, Eos % (Auto) 0.1, [...] stage III (followed by Dr. Albert in [place]), COPD, diabetes mellitus admitted to the hospital [...] about leaving today. Will notify hospitalist. 04/09/25 1030 Cosigner Signature (if applicable): CC: ~ Signed [facility]06-09-2025 Progress note Author Dyana Hwang [facility] Note Date/Time April 08, 2025 10:57 pm [facility] Medical Records Department [address] [place] [address] Progress Note - Hospitalist 04/08/25 8487 MR#: [id number] Acct: [id number] Name: TRENOC E Rep #:[id number] : 1945 79 From: Dyana Hwang MD PCP: Dr. Ryley Jeter MD Status:ADM IN Location: [place] [address] Hospitalist Note BS elevated, given ISS, repeat check remains elevated, will give an additional 15 u now and recheck 1-2 hours. 04/08/252256 <Electronically signed by Dyana Hwang MD> Cosigner Signature (if applicable): CC: ~ Signed [facility] Work Phone: 1([phone]) 272-962906-08-2025 Progress note [facility] Medical Records Department [address] [place] [address] Progress Note - Hospitalist 04/08/252256 MR#: [id number] Acct: [id number] Name: ENOC ARMANDO Rep #:[id number] : 1945 79 From: Dyana Hwang MD PCP: Dr. Ryley Jeter MD Status:ADM IN Location: [place] [address] Hospitalist Note BS elevated, given ISS, repeat check remains elevated, will give an additional 15 u now and recheck1-2 hours. 04/08/252256 Cosigner Signature (if applicable): CC: ~ Signed [facility]06-08-2025 Progress note Author Jose Moore [facility] Note Date/Time April 08, 2025 10:37 am [facility] Medical Records Department [address] [place] [address] Progress Note - Hospitalist 04/08/25 1026 MR#: [id number] Acct: [id number] Name: ENOC ARMANDO Rep #:[id number] : 1945 79 From: Jose lui MD PCP: Dr. Ryley Jeter MD Status:ADM IN Location: [place] [address] Subjective Subjective Feels better today than he [...] 88.0 H, Lymph % (Auto) 7.3 L, [place] % (Auto) 4.2, Eos % (Auto) 0.0, [...] a heart cath 2 years ago at [place] with 2 blockages that could not be [...] DVT: SCDs Charges/Coding Visit Charges Inpatient E&M: 64433 Subs Hosp L2 04/08/25 1037 <Electronically signed by Jose Moore MD> Cosigner Signature (if applicable): CC: ~ Signed [facility] Work Phone: 1(211) 381-898806-08-2025 Progress note [facility] Medical Records Department [address] [place] [address] Progress Note - Hospitalist 04/08/25 1026 MR#: [id number] Acct: [id number] Name: ENOC ARMANDO Rep #:[id number] : 1945 79 From: Jose lui MD PCP: Dr. Ryley Jeter MD Status:ADM IN Location: [place] [address] Subjective Subjective Feels better today than he [...] 88.0 H, Lymph % (Auto) 7.3 L, [place] % (Auto) 4.2, Eos % (Auto) 0.0, [...] a heart cath 2 years ago at [place] with 2 blockages that could not be [...] DVT: SCDs Charges/Coding Visit Charges Inpatient E&M: 74413 Subs Hosp L2 04/08/25 1037 Cosigner Signature (if applicable): CC: ~ Signed [facility]06-07-2025 Progress note Author Nate Forbes [facility] Note Date/Time April 07, 2025 5:18p m [facility] Medical Records Department [address] [place] [address] Progress Note - Aperture Mask Etcher 04/07/25 1717 MR#: [id number] Acct: [id number] Name: ENOC ARMANDO Rep #:[id number] : 1945 79 From: Nate Forbes MD PCP: Dr. Ryley Jeter MD Status:ADM IN Location: [place] [address] Objective Data Objective Data Vital Signs: Vital [...] mls/hr 04/03/25 05:18 04/06/25 14:45 IV Infused .I13X46M PRN Infusion Saline Flush Sodium Chloride 250 mls @ 15 mls/hr 04/03/25 05:18 IV .Q25K39G PRN Additional IVPB Infusion Dextrose 250 mls [...] 0.4 Mg Capsule PO 0.4 mg TuTa@1730 [facility] Administration Lab / Micro Data 04/07/25 [...] 79.0 H, Lymph % (Auto) 12.6 L, [place] % (Auto) 8.0, Eos % (Auto) 0.1, [...] per nephrology yesterday. Cont recommendations as per pulmonary/steel crane operator note yesterday. We will monitor peripherally over the weekend, but please call us any time if questions or if clinical worsening. Nate Forbes MD 04/07/25 1718 <Electronically signed by Nate Forbes MD> Cosigner Signature (if applicable): CC: ~ Signed [facility] Work Phone: [phone]) 546-717706-07-2025 Progress note [facility] Medical Records Department [address] [place] [address] Progress Note - Aperture Mask Etcher 04/07/251716 MR#: [id number] Acct: [id number] Name: ENOC ARMANDO Rep #:[id number] : 1945 79 From: Nate Forbes MD PCP: Dr. Ryley Jeter MD Status:ADM IN Location: [place] [address] Objective Data Objective Data Vital Signs: Vital [...] mls/hr 04/03/25 05:18 04/06/25 14:45 IV Infused .[id number] PRN Infusion Saline Flush Sodium Chloride 250 mls @ 15 mls/hr 04/03/25 05:18 IV .X32D53K PRN Additional IVPB Infusion Dextrose 250 mls [...] Hcl 0.4 Mg Capsule PO 0.4 mg Ayla@4333 [facility] Administration Lab / Micro Data 04/07/25 [...] 79.0 H, Lymph % (Auto) 12.6 L, [place] % (Auto) 8.0, Eos % (Auto) 0.1, [...] per nephrology yesterday. Cont recommendations as per pulmonary/steel crane operator note yesterday. We will monitor peripherally over the weekend, but please call us any time if questions or if clinical worsening. Nate Forbes MD 04/07/25 9427 Cosigner Signature (if applicable): CC: ~ Signed [facility]06-07-2025 Progress note Author Jose Moore [facility] Note Date/Time April 07, 2025 3:15p m [facility] Medical Records Department [address] [place] [address] Progress Note - Hospitalist 04/07/25 0090 MR#: [id number] Acct: [id number] Name: ENOC ARMANDO Rep #:[id number] : 1945 79 From: Jose lui MD PCP: Dr. Ryley Jeter MD Status:ADM IN Location: [place] [address] Subjective Subjective Doing well, no issues overnight. [...] 79.0 H, Lymph % (Auto) 12.6 L, [place] % (Auto) 8.0, Eos % (Auto) 0.1, [...] a cardiac cath 2 years ago at [place] and was told he had 2 blockages which were not amenable to revascularization. Records requested from [place]. Further management as per cardiology. 04/06/2025: Breath [...] as above. * Further records requested from [place] as above * cardiology on board 04/06/2025: Bitely to be due to demand ischemia though [...] DVT: SCDs Charges/Coding Visit Charges Inpatient E&M: 30378 Subs Hosp L2 04/07/25 1515 <Electronically signed by Jose Moore MD> Cosigner Signature (if applicable): CC: ~ Signed [facility] Work Phone: [phone]) 491-232906-07-2025 Progress note [facility] Medical Records Department [address] [place] [address] Progress Note - Hospitalist 04/07/25 1450 MR#: [id number] Acct: [id number] Name: ENOC ARMANDO Rep #:[id number] : 1945 79 From: Jose lui MD PCP: Dr. Ryley Jeter MD Status:ADM IN Location: [place] [address] Subjective Subjective Doing well, no issues overnight. [...] 79.0 H, Lymph % (Auto) 12.6 L, [place] % (Auto) 8.0, Eos % (Auto) 0.1, [...] a cardiac cath 2 years ago at [place] and was told he had 2 blockages which were not amenable to revascularization. Records requested from [place]. Further management as per cardiology. 04/06/2025: Breath [...] as above. * Further records requested from [place] as above * cardiology on board 04/06/2025: Bitely to be due to demand ischemia though [...] DVT: SCDs Charges/Coding Visit Charges Inpatient E&M: 80467 Subs Hosp L2 04/07/25 9065 Cosigner Signature (if applicable): CC: ~ Signed [facility]06-06-2025 Progress note Author Jose Moore [facility] Note Date/Time April 06, 2025 6:25p m [facility] Medical Records Department [address] [place] [address] Progress Note - Hospitalist 04/06/258 MR#: [id number] Acct: [id number] Name: ENOC ARMANDO Rep #:[id number] : 1945 79 From: Jose lui MD PCP: Dr. Ryley Jeter MD Status:ADM IN Location: [place] [address] Subjective Subjective Doing well, no issues overnight [...] (Auto) 83.3 H, Lymph % (Auto) 9.1L, [place] % (Auto) 7.0, Eos % (Auto) 0.0, [...] Lung findings are grossly unchanged. Reading Location: [facility] Rhythm Strip Rhythm Strip: Sinus Rhythm Rate: [...] a cardiac cath 2 years ago at [place] and was told he had 2 blockages which were not amenable to revascularization. Records requested from [place]. Further management as per cardiology. 04/06/2025: Breath sounds are improving and he is maintaining nasal cannula after dialysis #Elevated cardiac enzymes: * initial troponin was 58, and only peaked at 76. 2D echo as above. * Further records requested from [place] as above * cardiology on board 04/06/2025: Bitely to be due to demand ischemia though [...] DVT: Heparin Charges/Coding Visit Charges Inpatient E&M: 71109 Subs Hosp L2 04/06/25 1825 <Electronically signed by Jose Moore MD> Cosigner Signature (if applicable): CC: ~ Signed [facility] Work Phone: [phone]) 100-181306-06-2025 Progress note [facility] Medical Records Department [address] [place] [address] Progress Note - Hospitalist 04/06/25 1818 MR#: [id number] Acct: [id number] Name: ENOC ARMANDO Rep #:[id number] : 1945 79 From: Jose lui MD PCP: Dr. Ryley Jeter MD Status:ADM IN Location: [place] [address] Subjective Subjective Doing well, no issues overnight [...] (Auto) 83.3 H, Lymph % (Auto) 9.1L, [place] % (Auto) 7.0, Eos % (Auto) 0.0, [...] Lung findings are grossly unchanged. Reading Location: [facility] Rhythm Strip Rhythm Strip: Sinus Rhythm Rate: [...] a cardiac cath 2 years ago at [place] and was told he had 2 blockages which were not amenable to revascularization. Records requested from [place]. Further management as per cardiology. 04/06/2025: Breath sounds are improving and he is maintaining nasal cannula after dialysis #Elevated cardiac enzymes: * initial troponin was 58, and only peaked at 76. 2D echo as above. * Further records requested from [place] as above * cardiology on board 04/06/2025: Bitely to be due to demand ischemia though [...] DVT: Heparin Charges/Coding Visit Charges Inpatient E&M: 68356 Subs Hosp L2 04/06/25 1825 Cosigner Signature (if applicable): CC: ~ Signed [facility]06-06-2025 Progress note Author Bipin Gonzalez [facility] Note Date/Time April 06, 2025 4:18p m [facility] Medical Records Department [address] [place] [address] Progress Note - Nephrology 04/06/25 1117 MR#: [id number] Acct: [id number] Name: ENOC ARMANDO Rep #:[id number] : 1945 79 From: Bipin arreola SCIENCE ANALYST-C PCP: Dr. Ryley Jeter MD Status:ADM IN Location: [address] 1 Documented by User: AURY Davison [...] Sl. Cloudy, Urine pH 5.0, Ur Specific [place] 1.020, Urine Protein 100 H, Urine Glucose [...] (Auto) 83.3 H, Lymph % (Auto) 9.1L, [place] % (Auto) 7.0, Eos % (Auto) 0.0, [...] Lung findings are grossly unchanged. Reading Location: [facility] Rhythm Strip Rhythm Strip: Sinus Rhythm Rate: [...] stage III (followed by Dr. Albert in [place]), COPD, diabetes mellitus admitted to the hospital [...] stage III (followed by Dr. Albert in [place]), COPD, diabetes mellitus admitted to the hospital [...] and plan reviewed with Dr. Thompson. jr FLOOR ASSEMBLER. BAKARI is typically short lived. hopefully will recover soon. HD today. will reevaluate tomorrow 04/06/25 1124 <Electronically signed by Bipin JEFFERS> Cosigner Signature (if applicable): 04/06/25 1618 <Electronically signed by Denisha Thompson MD> CC: ~ Signed [facility] Work Phone: 1(461) 515-262306-06-2025 Progress note [facility] Medical Records Department [address] [place] [address] Progress Note - Nephrology 04/06/25 1117 MR#: [id number] Acct: [id number] Name: ENOC ARMANDO Rep #:[id number] : 1945 79 From: Bipin JEFFERS PCP: Dr. Ryley Jeter MD Status:ADM IN Location: [place] [address] Documented by User: AURY Davison 04/06/25 11:24 [...] Sl. Cloudy, Urine pH 5.0, Ur Specific [place] 1.020, Urine Protein 100 H, Urine Glucose [...] (Auto) 83.3 H, Lymph % (Auto) 9.1L, [place] % (Auto) 7.0, Eos % (Auto) 0.0, [...] Lung findings are grossly unchanged. Reading Location: [facility] Rhythm Strip Rhythm Strip: Sinus Rhythm Rate: [...] stage III (followed by Dr. Albert in [place]), COPD, diabetes mellitus admitted to the hospital [...] stage III (followed by Dr. Albert in [place]), COPD, diabetes mellitus admitted to the hospital [...] and plan reviewed with Dr. Thompson. jr FLOOR ASSEMBLER. BAKARI is typically short lived. hopefully will recover soon. HD today. will reevaluate tomorrow 04/06/25 1124 Cosigner Signature (if applicable): 04/06/25 1618 CC: ~ Signed [facility]06-06-2025 Progress note Author Smooth Luis [facility] Note Date/Time April 06, 2025 11:24 am [facility] Medical Records Department [address] [place] [address] Progress Note - Surgery 04/06/25 1123 MR#: [id number] Acct: [id number] Name: ENOC ARMANDO Rep #:[id number] : 1945 79 From: Smooth Luis MD PCP: Dr. Ryley Jeter MD Status:ADM IN Location: [place] [address] Subjective Subjective Patient seen on rounds this [...] Sl. Cloudy, Urine pH 5.0, Ur Specific [place] 1.020, Urine Protein 100 H, Urine Glucose [...] (Auto) 83.3 H, Lymph % (Auto) 9.1L, [place] % (Auto) 7.0, Eos % (Auto) 0.0, [...] Lung findings are grossly unchanged. Reading Location: [facility] Rhythm Strip Rhythm Strip: Sinus Rhythm Rate: [...] Cosigner Signature (if applicable): CC: ~ Signed [facility] Work Phone: 1(295) 726-967206-06-2025 Progress note Author Landry Fagan [facility] Note Date/Time April 06, 2025 9:42a [facility] Medical Records Department [address] [place] [address] Progress Note - Aperture Mask Etcher 04/06/25 0938 MR#: [id number] Acct: [id number] Name: ENOC ARMANDO Rep #:[id number] : 1945 79 From: Landry Fagan DO PCP: Dr. Ryley Jeter MD Status:ADM IN Location: [facility] [id number]- 1 Assessment & Plan Assessment/Plan (1) Acute [...] without intubation This note was generated with [employer] dictation software. It may contain incorrectwords, spelling, [...] Sl. Cloudy, Urine pH 5.0, Ur Specific [place] 1.020, Urine Protein 100 H, Urine Glucose [...] (Auto) 83.3 H, Lymph % (Auto) 9.1L, [place] % (Auto) 7.0, Eos % (Auto) 0.0, [...] Lung findings are grossly unchanged. Reading Location: [facility] Rhythm Strip Rhythm Strip: Sinus Rhythm Rate: [...] affect normal Charges/Coding Visit Charges Inpatient E&M: 48306 Subs Hosp L2 04/06/25 0942 <Electronically signed by Landry Fagan DO> Cosigner Signature (if applicable): CC: ~ Signed [facility] Work Phone: 1(121) 185-932806-06-2025 Progress note [facility] Medical Records Department [address] [place] [address] Progress Note - Surgery 04/06/25 1123 MR#: [id number] Acct: [id number] Name: ENOC ARMANDO Rep #:[id number] : 1945 79 From: Smooth Luis MD PCP: Dr. Ryley Jeter MD Status:ADM IN Location: [place] [address] Subjective Subjective Patient seen on rounds this [...] Sl. Cloudy, Urine pH 5.0, Ur Specific [place] 1.020, Urine Protein 100 H, Urine Glucose [...] (Auto) 83.3 H, Lymph % (Auto) 9.1L, [place] % (Auto) 7.0, Eos % (Auto) 0.0, [...] Lung findings are grossly unchanged. Reading Location: [facility] Rhythm Strip Rhythm Strip: Sinus Rhythm Rate: [...] Cosigner Signature (if applicable): CC: ~ Signed [facility]06-06-2025 Progress note [facility] Medical Records Department [address] [place] [address] Progress Note - Aperture Mask Etcher 04/06/25 0938 MR#: [id number] Acct: [id number] Name: ENOC ARMANDO Rep #:[id number] : 1945 79 From: Landry Fagan DO PCP: Dr. Ryley Jeter MD Status:ADM IN Location: [facility] [id number]- 1 Assessment & Plan Assessment/Plan (1) Acute [...] without intubation This note was generated with [employer] dictation software. It may contain incorrectwords, spelling, [...] Sl. Cloudy, Urine pH 5.0, Ur Specific [place] 1.020, Urine Protein 100 H, Urine Glucose [...] (Auto) 83.3 H, Lymph % (Auto) 9.1L, [place] % (Auto) 7.0, Eos % (Auto) 0.0, [...] Lung findings are grossly unchanged. Reading Location: [facility] Rhythm Strip Rhythm Strip: Sinus Rhythm Rate: [...] affect normal Charges/Coding Visit Charges Inpatient E&M: 51035 Subs Hosp L2 04/06/25 0942 Cosigner Signature (if applicable): CC: ~ Signed [facility]06-05-2025 Consult note Author Smooth Luis [facility] Note Date/Time April 05, 2025 6:10p m [facility] Medical Records Department [address] [place] [address] Consultation - Surgical 04/05/25 1806 MR#: [id number] Acct: [id number] Name: ENOC ARMANDO Rep #:[id number] : 1945 79 From: Smooth Luis MD PCP: Dr. Ryley Jeter MD Status:ADM IN Location: [place] [address] Assessment & Plan Assessment/Plan (1) CKD (chronic kidney disease), stage III: QUALIFIERS: Chronic kidney disease stage 3 subtype: stage 3b (GFR 30-44) Qualified Code(s): N18.32 - Chronic kidney disease, stage 3b PLAN: Plan Patient is an 79-year-old male with worsening renal function. Informatics Specialist is recommending temporary dialysis. Dialysis catheter was [...] who presented to the emergency department at [facility] several days ago with history of [...] AdvReac Other Verified 04/03/25 00:16 (Glucocorticoids) (steroids) Xoaqtso-SKP-OfO Reductase AdvReac Other Verified 04/03/25 00:16 Inhibitor (Xuqsecq-Bfk-Lil Reductase Inhibitor) Family History Mother COPD (chronic [...] 85.5 H, Lymph % (Auto) 5.7 L, [place] % (Auto) 7.7, Eos % (Auto) 0.0, [...] Sl. Cloudy, Urine pH 5.0, Ur Specific [place] 1.020, Urine Protein 100 H, Urine Glucose [...] to prior. Correlate with PSA. Reading Location: YNR-BYDIUOLPH-S Charges/Coding Visit Charges Inpatient E&M: 93985 Init Hosp L3 04/05/25 1810 <Electronically signed by Smooth Luis MD> Cosigner Signature (if applicable): CC: Dr. Ryley Jeter MD~ Signed [facility] Work Phone: 1(655) 502-226406-05-2025 Radiology Diagnostic study note [facility] Imaging Services [address] [place] [address] CXR for Line Placement MR#: [id number] Acct: [id number] Name: ENOC ARMANDO Rep #: [id number] : 1945 M 79 From: Chely Batista MD PCP: Dr. Ryley Jeter MD Status: ADM IN Study:CXR for Line Placement Date of Exam: 04/05/25 Exam# [id number] Ordering Dr: St dany Luis MD PROCEDURE: CXR FOR LINE PLACEMENT 04/05/2025 REASON FOR EXAM: TEMP HD CATH INSERTION ON RIGHT TECHNIQUE: Single frontal view of the chest COMPARISON: 04/03/2025 RAD/CXR for Line Placement IMPRESSION: Interval insertion of right IJ line with tip at SVC, likely in appropriate position. Lung findings are grossly unchanged. Reading Location: [facility] CC: Dr. Ryley Jeter MD; Dr. Smooth Luis MD ~ Healthcare Receptionist: Signed [facility]06-05-2025 Progress note Author [facility] Note Date/Time April 05, 2025 5:19p m [facility] Medical Records Department [address] [place] [address] Progress Note 04/05/25 1212 MR#: [id number] Acct: [id number] Name: ENOC ARMANDO Rep #:[id number] : 1945 79 From: Grace Arnold MD PCP: Dr. Ryley Jeter MD Status:ADM IN Location: [place] [address] Subjective Subjective Patient seen and examined. He [...] 85.5 H, Lymph % (Auto) 5.7 L, [place] % (Auto) 7.7, Eos % (Auto) 0.0, [...] to prior. Correlate with PSA. Reading Location: GBW-HSTGNEIWQ-V Rhythm Strip Rhythm Strip: Sinus Rhythm Rate: [...] a cardiac cath 2 years ago at [place] and was told he had 2 blockages which were not amenable to revascularization. Records requested from [place]. Further management as per cardiology. * #Elevated cardiac enzymes: * initial troponin was 58, and only peaked at 76. 2D echo as above. * Further records requested from [place] as above * cardiology on board * [...] heparin sq. Charges/Coding Visit Charges Inpatient E&M: 56290 Subs Hosp L3 04/05/25 1719 <Electronically signed by Grace Arnold MD> Grace Arnold MD Cosigner Signature (if applicable): CC: ~ Signed [facility] Work Phone: 1(188) 592-154006-05-2025 Procedure note [facility] Medical Records Department [address] [place] [address] Operative Report 04/05/25 1810 MR#: [id number] Acct: [id number] Name: ENOC ARMANDO Rep #:[id number] : 1945 79 From: Smooth Luis MD PCP: Dr. Ryley Jeter MD Status:ADM IN Location: [place] [address] Problems Associated Problem List Diagnoses (1) CKD (chronic kidney disease), stage III: Procedures Cardiovascular CF Procedures 33xxx-39xxx: 52615 Insert tunneled cv cath Operative Report (Standard) Operative Information Date of Procedure: 04/05/25 Pre-Operative Diagnosis: Renal failure Post-Operative Diagnosis: Renal failure Surgery/Procedure Performed: Right internal jugular temporary dialysis catheter insertion with ultrasound machine chocolate molder: No Type of Anesthesia: Local Procedure Start Time: 17:00 Procedure Stop Time: 17:20 Select all DRAINS/GRAFTS/IMPLANTS that apply: Prosthetic device Prosthetic device details: 12 Upper Sorbian temporary dialysis catheter Estimated Blood Loss: 15 [...] Nolen MD; Dr. Nina Lee MD~ Signed [facility]06-05-2025 Consult note [facility] Medical Records Department [address] [place] [address] Consultation - Surgical 04/05/25 1806 MR#: [id number] Acct: [id number] Name: ENOC ARMANDO Rep #:[id number] : 1945 79 From: Smooth Luis MD PCP: Dr. Ryley Jeter MD Status:ADM IN Location: [place] [address] Assessment & Plan Assessment/Plan (1) CKD (chronic kidney disease), stage III: QUALIFIERS: Chronic kidney disease stage 3 subtype: stage 3b (GFR 30-44) Qualified Code(s): N18.32 - Chronic kidney disease, stage 3b PLAN: Plan Patient is an 79-year-old male with worsening renal function. Informatics Specialist is recommending temporary dialysis. Dialysis catheter was [...] who presented to the emergency department at [facility] several days ago with history of [...] AdvReac Other Verified 04/03/25 00:16 (Glucocorticoids) (steroids) Dbplmtl-DZL-ApA Reductase AdvReac Other Verified 04/03/25 00:16 Inhibitor (Yyfuauh-Qsx-Pml Reductase Inhibitor) Family History Mother COPD (chronic [...] 85.5 H, Lymph % (Auto) 5.7 L, [place] % (Auto) 7.7, Eos % (Auto) 0.0, [...] Sl. Cloudy, Urine pH 5.0, Ur Specific [place] 1.020, Urine Protein 100 H, Urine Glucose [...] to prior. Correlate with PSA. Reading Location: DQL-[id number]-U Charges/Coding Visit Charges Inpatient E&M: 95139 Init Hosp 04/05/25 1810 Cosigner Signature (if applicable): CC: Dr. Ryley Jeter MD~ Signed [facility]06-05-2025 Progress note Author Denisha Thompson [facility] Note Date/Time April 05, 2025 3:20p m [facility] Medical Records Department [address] [place] [address] Progress Note - Nephrology 04/05/25 1518 MR#: [id number] Acct: [id number] Name: ENOC ARMANDO Ariela Rep #:[id number] : 1945 79 From: Denisha tirado MD PCP: Dr. Ryley Jeter MD Status:ADM IN Location: [place] [address] Subjective Subjective he is on bipap Objective [...] 85.5 H, Lymph % (Auto) 5.7 L, [place] % (Auto) 7.7, Eos % (Auto) 0.0, [...] Sl. Cloudy, Urine pH 5.0, Ur Specific [place] 1.020, Urine Protein 100 H, Urine Glucose [...] to prior. Correlate with PSA. Reading Location: [facility] Rhythm Strip Rhythm Strip: Sinus Rhythm [...] stage III (followed by Dr. Albert in [place]), COPD, diabetes mellitus admitted to the hospital [...] Cosigner Signature (if applicable): CC: ~ Signed [facility] Work Phone: 1(564) 570-836406-05-2025 Progress note [facility] Medical Records Department [address] [place] [address] Progress Note 04/05/25 1212 MR#: [id number] Acct: [id number] Name: ENOC ARMANDO Rep #:[id number] : 1945 79 From: Grace Arnold MD PCP: Dr. Ryley Jeter MD Status:ADM IN Location: [place] [address] Subjective Subjective Patient seen and examined. He [...] 85.5 H, Lymph % (Auto) 5.7 L, [place] % (Auto) 7.7, Eos % (Auto) 0.0, [...] to prior. Correlate with PSA. Reading Location: [facility] Rhythm Strip Rhythm Strip: Sinus Rhythm [...] a cardiac cath 2 years ago at [place] and was told he had 2 blockages which were not amenable to revascularization. Records requested from [place]. Further management as per cardiology. * #Elevated cardiac enzymes: * initial troponin was 58, and only peaked at 76. 2D echo as above. * Further records requested from [place] as above * cardiology on board * [...] heparin sq. Charges/Coding Visit Charges Inpatient E&M: 52356 [facility] Hosp 04/05/25 8846 Grace Arnold MD Cosigner Signature (if applicable): CC: ~ Signed [facility]06-05-2025 Progress note Author Barbie Martin [facility] Note Date/Time April 05, 2025 3:10p m [facility] Medical Records Department [address] [place] [address] Progress Note - Cardiology 04/05/25 1459 MR#: [id number] Acct: [id number] Name: ENOC ARMANDO Rep #:[id number] : 1945 79 From: Barbie gibson MD PCP: Dr. Ryley Jeter MD Status:ADM IN Location: [place] [address] Subjective Subjective Patient denies any chest pain. [...] 85.5 H, Lymph % (Auto) 5.7 L, [place] % (Auto) 7.7, Eos % (Auto) 0.0, [...] Sl. Cloudy, Urine pH 5.0, Ur Specific [place] 1.020, Urine Protein 100 H, Urine Glucose [...] 85.5 H, Lymph % (Auto) 5.7 L, [place] % (Auto) 7.7, Eos % (Auto) 0.0, [...] Sl. Cloudy, Urine pH 5.0, Ur Specific [place] 1.020, Urine Protein 100 H, Urine Glucose [...] to prior. Correlate with PSA. Reading Location: RMS-PUHEHIIML-S Physical Exam Const alert HEENT normocephalic Eyes [...] catheterization within the last 2 years at [place]. He also had 2 blockages that were [...] be [facility] 10 days after discharge. Charges/Coding Visit Charges Inpatient E&M: 40534 Subs Hosp L2 04/05/25 1510 <Electronically signed by Barbie Martin MD> Cosigner Signature (if applicable): CC: ~ Signed [facility] Work Phone: 1(132) 302-488006-05-2025 Progress note [facility] Medical Records Department [address] [place] [address] Progress Note - Nephrology 04/05/25 1518 MR#: [id number] Acct: [id number] Name: ENOC ARMANDO Rep #:[id number] : 1945 79 From: Denisha tirado MD PCP: Dr. Ryley Jeter MD Status:ADM [facility] Subjective Subjective he is on [...] 85.5 H, Lymph % (Auto) 5.7 L, [place] % (Auto) 7.7, Eos % (Auto) 0.0, [...] Sl. Cloudy, Urine pH 5.0, Ur Specific [place] 1.020, Urine Protein 100 H, Urine Glucose [...] to prior. Correlate with PSA. Reading Location: KRQ-JGJYOPDRA-K Rhythm Strip Rhythm Strip: Sinus Rhythm Rate: [...] stage III (followed by Dr. Albert in [place]), COPD, diabetes mellitus admitted to the hospital [...] Cosigner Signature (if applicable): CC: ~ Signed [facility]06-05-2025 Progress note [facility] Medical Records Department [address] [place] [address] Progress Note - Cardiology 04/05/25 7118 MR#: [id number] Acct: [id number] Name: ENOC ARMANDO Rep #:[id number] : 1945 79 From: Barbie gibson MD PCP: Dr. Ryley Jeter MD Status:ADM IN Location: [place] [address] Subjective Subjective Patient denies any chest pain. [...] 85.5 H, Lymph % (Auto) 5.7 L, [place] % (Auto) 7.7, Eos % (Auto) 0.0, [...] Sl. Cloudy, Urine pH 5.0, Ur Specific [place] 1.020, Urine Protein 100 H, Urine Glucose [...] 85.5 H, Lymph % (Auto) 5.7 L, [place] % (Auto) 7.7, Eos % (Auto) 0.0, [...] Sl. Cloudy, Urine pH 5.0, Ur Specific [place] 1.020, Urine Protein 100 H, Urine Glucose [...] to prior. Correlate with PSA. Reading Location: YJL-FBYOLNJFR-G Physical Exam Const alert HEENT normocephalic Eyes [...] catheterization within the last 2 years at [place].He also had 2 blockages that were not [...] be [facility] 7[facility] 10 days after discharge. Charges/Coding Visit Charges Inpatient E&M: 06552 Subs Hosp L2 04/05/25 4689 Cosigner Signature (if applicable): CC: ~ Signed [facility]06-05-2025 Consult note Author Bipin Gonzalez [facility] Note Date/Time April 05, 2025 10:03 am [facility] Medical Records Department [address] [place] [address] Consultation - Nephrology 04/04/25 1518 MR#: [id number] Acct: [id number] Name: ENOC ARMANDO Rep #:[id number] : 1945 79 From: Bipin arreola NP-C PCP: Dr. Ryley Jeter MD Status:ADM IN Location: [place] [address] Assessment & Plan Assessment/Plan (1) MADONNA (acute kidney injury): (2) CKD (chronic kidney disease), stage III: QUALIFIERS: Chronic kidney disease stage 3 subtype: stage 3b (GFR 30-44) Qualified Code(s): N18.32 - Chronic kidney disease, stage 3b (3) Acute hypoxic respiratory failure: PLAN: Plan This is an 79-year-old male with past medical history significant for hypertension, CKD stage III (followed by Dr. Albert in [place]), COPD, diabetes mellitus admitted to the hospital [...] Armando. Assessment and plan reviewed with Dr. hTompson. HPI Consult Data Date of Consult: 04/04/25 [...] has been following with Dr. Ayanna Albert, medical fee clerk in [place] for history of CKD. Baseline creatinine has [...] AdvReac Other Verified 04/03/25 00:16 (Glucocorticoids) (steroids) Zxcrggj-BQM-JlL Reductase AdvReac Other Verified 04/03/25 00:16 Inhibitor (Plojxag-Thi-Hhw Reductase Inhibitor) Family History Mother COPD (chronic [...] (Auto) 90.4 H, Lymph % (Auto) 4.9L, [place] % (Auto) 4.0, Eos % (Auto) 0.0, [...] MD> CC: Dr. Ryley Jeter MD~ Signed [facility] Work Phone: 1(122) 376-200806-05-2025 Progress note Author Landry Fagan [facility] Note Date/Time April 05, 2025 9:30a m [facility] Medical Records Department [address] [place] [address] Progress Note - Aperture Mask Etcher 04/05/25 0819 MR#: [id number] Acct: [id number] Name: ENOC ARMANDO Ariela Rep #:[id number] : 1945 79 From: Landry Fagan DO PCP: Dr. Ryley Jeter MD Status:ADM IN Location: [place] [address]- Assessment & Plan Assessment/Plan (1) Acute hypoxic [...] without intubation This note was generated with [employer] dictation software. It may contain incorrectwords, spelling, [...] 85.5 H, Lymph % (Auto) 5.7 L, [place] % (Auto) 7.7, Eos % (Auto) 0.0, [...] to prior. Correlate with PSA. Reading Location: PDC-FKFKLOQKM-N Rhythm Strip Rhythm Strip: Sinus Rhythm Rate: [...] affect normal Charges/Coding Visit Charges Inpatient E&M: 75625 Subs Hosp L2 04/05/25 0930 <Electronically signed by Landry Fagan DO> Cosigner Signature (if applicable): CC: ~ Signed [facility] Work Phone: 1(702) 650-838206-05-2025 Consult note [facility] Medical Records Department [address] [place] [address] Consultation - Nephrology 04/04/25 1518 MR#: [id number] Acct: [id number] Name: ENOC ARMANDO Rep #:[id number] : 1945 79 From: Bipin arreola SCIENCE ANALYST-C PCP: Dr. Ryley Jeter MD Status:ADM IN Location: [place] [address] Assessment & Plan Assessment/Plan (1) MADONNA (acute kidney injury): (2) CKD (chronic kidney disease), stage III: QUALIFIERS: Chronic kidney disease stage 3 subtype: stage 3b (GFR 30-44) Qualified Code(s): N18.32 - Chronic kidney disease, stage 3b (3) Acute hypoxic respiratory failure: PLAN: Plan This is an 79-year-old male with past medical history significant for hypertension, CKD stage III (followed by Dr. Albert in [place]), COPD, diabetes mellitus admitted to the hospital [...] has been following with Dr. Ayanna Albert, medical fee clerk in [place] for history of CKD. Baseline creatinine has [...] AdvReac Other Verified 04/03/25 00:16 (Glucocorticoids) (steroids) Hhhlldi-XSV-UrQ Reductase AdvReac Other Verified 04/03/25 00:16 Inhibitor (Cqwdyjd-Pvo-Uxk Reductase Inhibitor) Family History Mother COPD (chronic [...] (Auto) 90.4 H, Lymph % (Auto) 4.9L, [place] % (Auto) 4.0, Eos % (Auto) 0.0, [...] 1003 CC: Dr. Ryley Jeter MD~ Signed [facility]06-05-2025 Progress note [facility] Medical Records Department [address] [place] [address] Progress Note - Aperture Mask Etcher 04/05/25 08 MR#: [id number] Acct: [id number] Name: ENOC ARMANDO Rep #:[id number] : 1945 79 From: Landry Fagan DO PCP: Dr. Ryley Jeter MD Status:ADM IN Location: [facility] GLJ659- 1 Assessment & Plan Assessment/Plan (1) Acute [...] without intubation This note was generated with [employer] dictation software. It may contain incorrectwords, spelling, [...] 85.5 H, Lymph % (Auto) 5.7 L, [place] % (Auto) 7.7, Eos % (Auto) 0.0, [...] to prior. Correlate with PSA. Reading Location: OID-DUQURKLJA-H Rhythm Strip Rhythm Strip: Sinus Rhythm Rate: [...] affect normal Charges/Coding Visit Charges Inpatient E&M: 90425 Subs Hosp L2 04/05/25 0930 Cosigner Signature (if applicable): CC: ~ Signed [facility]06-05-2025 Radiology Diagnostic study note [facility] Imaging Services [address] [place] [address] Kidney and Bladder MR#: [id number] Acct: [id number] Name: ENOC ARMANDO Rep #: [id number] : 1945 M 79 From: Demetria Mahoney MD PCP: Dr. Ryley Jeter MD Status: ADM IN Study:Kidney and Bladder Date of Exam: 0 04/04/25 Exam# [id number] Ordering Dr: Kesha Arnold MD PROCEDURE: KIDNEY [...] to prior. Correlate with PSA. Reading Location: [facility] CC: Dr. Ryley Jeter MD; Dr. Grace Arnold MD ~ Healthcare Receptionist: Signed [facility]06-04-2025 Progress note Author Grace Arnold [facility] Note Date/Time April 04, 2025 5:42p m [facility] Medical Records Department [address] [place] [address] Progress Note 04/04/25 1121 MR#: [id number] Acct: [id number] Name: ENOC ARMANDO Rep #:[id number] : 1945 79 From: Grace Arnold MD [...] (Auto) 90.4 H, Lymph % (Auto) 4.9L, [place] % (Auto) 4.0, Eos % (Auto) 0.0, [...] a cardiac cath 2 years ago at [place] and was told he had 2 blockages which were not amenable to revascularization. Records requested from [place]. Further management as per cardiology. * #Elevated cardiac enzymes: * initial troponin was 58, and only peaked at 76. 2D echo as above. * Further records requested from [place] as above * cardiology on board * [...] heparin sq. Charges/Coding Visit Charges Inpatient E&M: 34808 Subs Hosp L3 04/04/25 1742 <Electronically signed by Grace Arnold MD> Grace Arnold MD Cosigner Signature (if applicable): CC: ~ Signed [facility] Work Phone: [phone]) 191-791606-04-2025 Progress note [facility] Medical Records Department [address] [place] [address] Progress Note 04/04/25 1121 MR#: [id number] Acct: [id number] Name: ENOC ARMANDO Rep #:[id number] : 1945 79 From: Grace Arnold MD [...] (Auto) 90.4 H, Lymph % (Auto) 4.9L, [place] % (Auto) 4.0, Eos % (Auto) 0.0, [...] a cardiac cath 2 years ago at [place] and was toldhe had 2 blockages which were not amenable to revascularization. Records requested from [place]. Further management as per cardiology. * #Elevated cardiac enzymes: * initial troponin was 58, and only peaked at 76. 2D echo as above. * Further records requested from [place] as above * cardiology on board * [...] heparin sq. Charges/Coding Visit Charges Inpatient E&M: 64765 Subs Hosp L3 04/04/25 1749 Grace Arnold MD Cosigner Signature (if applicable): CC: ~ Signed [facility]06-04-2025 Progress note Author Donte Nolen [facility] Note Date/Time April 04, 2025 2:56p m [facility] Medical Records Department [address] [place] [address] Progress Note - Aperture Mask Etcher 04/04/25 1257 MR#: [id number] Acct: [id number] Name: ENOC ARMANDO Rep #:[id number] : 1945 79 From: Donte Silver PCP: [...] mls @ 15 mls/hr 04/03/25 05:18 IV .G23V02C PRN Saline Flush Sodium Chloride 250 mls @ 15 mls/hr 04/03/25 05:18 IV .T62R52V PRN Additional IVPB Infusion Dextrose 250 mls @ 999 mls/hr 04/03/25 13:17 Dextrose 10%-Water IV .Q16M PRN Hypoglycemic Protocol Protocol Dextrose/Sodium Chloride 1,000 mls @ 60 mls/hr 04/03/25 22:35 04/03/25 23:16 IV 60 mls/hr .H17A23Q DIDI Administration Insulin Glargine 15 unit 04/04/25 [...] Hcl 0.4 Mg Capsule PO 0.4 mg Ayla@0400 DIDI Administration Lab / Micro Data 04/04/25 [...] (Auto) 90.4 H, Lymph % (Auto) 4.9L, [place] % (Auto) 4.0, Eos % (Auto) 0.0, [...] this encounter was done via Telemedicine 04/04/25 6531 <Electronically signed by Donte Nolen MD> Cosigner Signature (if applicable): CC: ~ Signed [facility] Work Phone: 1(301) 260-361306-04-2025 Progress note [facility] Medical Records Department [address] [place] [address] Progress Note - Aperture Mask Etcher 04/04/25 1257 MR#: [id number] Acct: [id number] Name: ENOC ARMANDO Rep #:[id number] : 1945 79 From: Donte Silver PCP: [...] mls @ 15 mls/hr 04/03/25 05:18 IV .X47W99H PRN Saline Flush Sodium Chloride 250 mls @ 15 mls/hr 04/03/25 05:18 IV .D07D73W PRN Additional IVPB Infusion Dextrose 250 mls @ 999 mls/hr 04/03/25 13:17 Dextrose 10%-Water IV .Q16M PRN Hypoglycemic Protocol Protocol Dextrose/Sodium Chloride 1,000 mls @ 60 mls/hr 04/03/25 22:35 04/03/25 23:16 IV 60 mls/hr .Z36H23C DIDI Administration Insulin Glargine 15 unit 04/04/25 [...] 25 Mg Tablet PO 25 mg DAILY [facility] Administration Protocol Nitroglycerin 0.4 mg 04/03/25 05:17 Nitroglycerin (Inpatient Use) 0.4 Mg Tab.Subl SL Q5M PRN CARDIAC/CHEST PAIN Ondansetron HCl 4 mg 04/03/25 05:17 Ondansetron 4 Mg/2 Ml Vial IV Q8H PRN PRN NAUSEA/VOMITING Potassium Chloride 20 meq 04/03/25 08:00 04/04/25 10:50 Potassium Chloride Oral Tablet 20 Meq PO 20 meq BIDCM [facility] Administration Prednisone 40 mg 04/05/25 08:00 Prednisone 20 Mg Tablet PO 04/10/25 08:01 BREAKFAST [facility] Prochlorperazine Edisylate 5 mg 04/03/25 05:17 [...] Hcl 0.4 Mg Capsule PO 0.4 mg [facility]@1730 [facility] Administration Lab / Micro Data 04/04/25 [...] (Auto) 90.4 H, Lymph % (Auto) 4.9L, [place] % (Auto) 4.0, Eos % (Auto) 0.0, [...] Cosigner Signature (if applicable): CC: ~ Signed [facility]06-04-2025 Progress note Author Breezy Campbell [facility] Note Date/Time April 04, 2025 10:35 am [facility] Medical Records Department [address] [place] [address] Progress Note - Cardiology 04/04/25 1028 MR#: [id number] Acct: [id number] Name: ENOC ARMANDO Rep #:[id number] : 1945 79 From: Breezy Campbell MD PCP: Dr. Ryley Jeter MD Status:ADM IN Location: ICU ICU04-1 Subjective Subjective Has not been able to obtain records from [place] for his catheterization within the past 2 [...] (Auto) 90.4 H, Lymph % (Auto) 4.9L, [place] % (Auto) 4.0, Eos % (Auto) 0.0, [...] 90.4 H, Lymph % (Auto) 4.9 L, [place] % (Auto) 4.0, Eos % (Auto) 0.0, [...] catheterization within the last 2 years at [place]. He also had 2 blockages that were [...] be [facility] 7[facility] 10 days after discharge. Charges/Coding Visit Charges Inpatient E&M: 28847 Subs Hosp L3 04/04/25 1035 <Electronically signed by Breezy Campbell MD> Cosigner Signature (if applicable): CC: ~ Signed [facility] Work Phone: 1(107) 145-165406-04-2025 Progress note [facility] Medical Records Department [address] [place] [address] Progress Note - Cardiology 04/04/25 1028 MR#: [id number] Acct: [id number] Name: ENOC ARMANDO Rep #:[id number] : 1945 79 From: Breezy Campbell MD PCP: Dr. Ryley Jeter MD Status:ADM IN Location: ICU ICU04-1 Subjective Subjective Has not been able to obtain records from [place] for his catheterization within the past 2 [...] (Auto) 90.4 H, Lymph % (Auto) 4.9L, [place] % (Auto) 4.0, Eos % (Auto) 0.0, [...] 90.4 H, Lymph % (Auto) 4.9 L, [place] %(Auto) 4.0, Eos % (Auto) 0.0, Baso [...] catheterization within the last 2 years at [place]. He also had 2 blockages that were [...] be willing to [facility] 7[facility] 10 days after discharge. Charges/Coding Visit Charges Inpatient E&M: 50712 Subs Hosp L3 04/04/25 1035 Cosigner Signature (if applicable): CC: ~ Signed [facility]06-03-2025 Progress note Author [facility] Note Date/Time April 03, 2025 5:08p m [facility] Medical Records Department [address] [place] [address] Progress Note 04/03/25 1352 MR#: [id number] Acct: [id number] Name: ENOC ARMANDO Rep #:[id number] : 1945 79 From: Grace Arnold MD [...] 76.4 H, Lymph % (Auto) 13.5 L, [place] % (Auto) 7.0, Eos % (Auto) 1.9, [...] (Auto) 94.8 H, Lymph % (Auto) 3.3L, [place] % (Auto) 1.1, Eos % (Auto) 0.0, [...] 32 mins Charges/Coding Visit Charges Inpatient E&M: 76324 PROLNG IP/OBS E/M EA 15 MIN 04/03/25 [...] Signature (if applicable): Date cc: ~* Signed [facility] Work Phone: 1(439) 133-743206-03-2025 Consult note Author Breezy Campbell [facility] Note Date/Time April 03, 2025 4:52p m [facility] Medical Records Department [address] [place] [address] Consultation - Cardiology 04/03/25 1630 MR#: [id number] Acct: [id number] Name: ENOC ARMANDO Rep #:[id number] : 1945 79 From: Breezy Campbell MD [...] left heart catheterization a year ago in [place] we will try to obtain those records [...] I will try to obtain records from [place] to see if this is new but [...] Will try to obtain cardiovascular records from [place] from last year. 2. Continue current medical therapy. 3. Will follow along with you as the patient recovers from his pulmonary insufficiency we may need to alter his cardiovascular medical therapy. 4. The patient does not routinely see a comfort station supervisor by his report. We will behappy to [...] last year he underwentleft heart catheterization in [place] and that revealed 2 blocked arteries that [...] AdvReac Other Verified 04/03/25 00:16 (Glucocorticoids) (steroids) Vvcnifx-WVS-BzF Reductase AdvReac Other Verified 04/03/25 00:16 Inhibitor (Jjhcyvs-Bxf-Bhm Reductase Inhibitor) Family History Mother COPD (chronic [...] 20% Risk Charges/Coding Visit Charges Inpatient E&M: 62853 Init Hosp L3 Objective Data Vital Signs: [...] 76.4 H, Lymph % (Auto) 13.5 L, [place] % (Auto) 7.0, Eos % (Auto) 1.9, [...] (Auto) 94.8 H, Lymph % (Auto) 3.3L, [place] % (Auto) 1.1, Eos % (Auto) 0.0, [...] 76.4 H, Lymph % (Auto) 13.5 L, [place] % (Auto) 7.0, Eos % (Auto) 1.9, Baso % (Auto) 0.6, Absolute Neuts (auto) 12.0 H, Nucleated RBC % 0, PT 13.4, INR 1.0,APTT 37.3 H, D-Dimer Quant (PE/DVT) 1.86 H*, Sodium 139, Potassium 4.4, Zibuwkyt589, Carbon Dioxide 20.8 L, Anion Gap 14, [...] 94.8 H, Lymph % (Auto) 3.3 L, [place] % (Auto) 1.1, Eos % (Auto) 0.0, [...] possibly multifocal congestion and/or pneumonia. Reading Location[facility] Chest CTA 04/03/25 02:34 IMPRESSION: Mild bilateral [...] applicable): CC: Dr. Ryley Jeter MD~ Signed [facility] Work Phone: 1(804) 365-226206-03-2025 Progress note [facility] Medical Records Department [address] [place] [address] Progress Note 04/03/25 1352 MR#: [id number] Acct: [id number] Name: ENOC ARMANDO Rep #:[id number] : 1945 79 From: Grace Arnold MD [...] 76.4 H, Lymph % (Auto) 13.5 L, [place] % (Auto) 7.0, Eos % (Auto) 1.9, Baso % (Auto) 0.6, Absolute Neuts (auto) 12.0 H, Absolute Lymphs (auto) 2.12, Nucleated RBC % 0, PT 13.4, INR 1.0,APTT 37.3 H, D-Dimer Quant (PE/DVT) 1.86 H*, Sodium 139, Potassium 4.4,Chloride 104, Carbon Vvjzevw88.8 L, Anion Gap 14, BUN 42 H, [...] (Auto) 94.8 H, Lymph % (Auto) 3.3L, [place] % (Auto) 1.1, Eos % (Auto) 0.0, [...] pulmonary embolus or aortic dissection. Reading Location: [place] [address] Echocardiogram 04/03/25 05:55 Interpretation Summary Mid to [...] 32 mins Charges/Coding Visit Charges Inpatient E&M: 29676 PROLNG IP/OBS E/M EA 15 MIN 04/03/25 [...] Signature (if applicable): Date cc: ~* Signed [facility]06-03-2025 Consult note [facility] Medical Records Department [address] [place] [address] Consultation - Cardiology 04/03/25 1630 MR#: [id number] Acct: [id number] Name: ENOC ARMANDO Rep #:[id number] : 1945 79 From: Breezy Campbell MD [...] left heart catheterization a year ago in [place] we will try to obtain those records [...] I will try to obtain records from [place] to see if this is new but [...] Will try to obtain cardiovascular records from [place] from last year. 2. Continue current medical therapy. 3. Will follow along with you as the patient recovers from his pulmonary insufficiency we may need to alter his cardiovascular medical therapy. 4. The patient does not routinely see a comfort station supervisor by his report. We will behappy to [...] last year he underwentleft heart catheterization in [place] and that revealed 2 blocked arteries that [...] AdvReac Other Verified 04/03/25 00:16 (Glucocorticoids) (steroids) Babmqkk-BMV-DjJ Reductase AdvReac Other Verified 04/03/25 00:16 Inhibitor (Wgrcysf-Gdm-Dzu Reductase Inhibitor) Family History Mother COPD (chronic [...] 20% Risk Charges/Coding Visit Charges Inpatient E&M: 37113 Init Hosp L3 Objective Data Vital Signs: [...] 76.4 H, Lymph % (Auto) 13.5 L, [place] % (Auto) 7.0, Eos % (Auto) 1.9, Baso % (Auto) 0.6, Absolute Neuts (auto) 12.0 H, Absolute Lymphs (auto) 2.12, Nucleated RBC % 0, PT 13.4, INR 1.0,APTT 37.3 H, D-Dimer Quant (PE/DVT) 1.86 H*, Sodium 139, Potassium 4.4,Chloride 104, Carbon Ylaazsm96.8 L, Anion Gap 14, BUN 42 H, [...] (Auto) 94.8 H, Lymph % (Auto) 3.3L, [place] % (Auto) 1.1, Eos % (Auto) 0.0, [...] 76.4 H, Lymph % (Auto) 13.5 L, [place] % (Auto) 7.0, Eos % (Auto) 1.9, Baso % (Auto) 0.6, Absolute Neuts (auto) 12.0 H, Nucleated RBC %0, PT 13.4, INR 1.0,APTT 37.3 H, D-Dimer Quant (PE/DVT) 1.86 H*, Sodium 139, Potassium 4.4, Kxbrpwpt256, Carbon Dioxide 20.8 L, Anion Gap 14, [...] 94.8 H, Lymph % (Auto) 3.3 L, [place] %(Auto) 1.1, Eos % (Auto) 0.0, Baso [...] possibly multifocal congestion and/or pneumonia. Reading Location: [place] [address] Chest CTA 04/03/25 02:34 IMPRESSION: Mild bilateral pleural effusions. Passive atelectatic airspace disease/airspace consolidations of the lower lobes. Bilateral chronic perihilar interstitial pulmonary thickening with associated mild multifocal ground-glass densities, possibly superimposed pneumonia. Mild diffuse spondylosis. No CT evidence of pulmonary embolus or aortic dissection. Reading Location: [place] [address] Echocardiogram 04/03/25 05:55 Interpretation Summary Mid to [...] applicable): CC: Dr. Ryley Jeter MD~ Signed [facility]06-03-2025 Consult note Author Landry Fagan [facility] Note Date/Time April 03, 2025 9:04a m [facility] Medical Records Department [address] [place] [address] Consultation - Aperture Mask Etcher 04/03/25 0850 MR#: [id number] Acct: [id number] Name: ENOC ARMANDO Rep #:[id number] : 1945 79 From: Landry Fagan DO [...] without intubation This note was generated with [employer] dictation software. It may contain incorrectwords, spelling, [...] he has never been evaluated by a solar/renewable energy sales or completed pulmonary function studies. Therefore, it [...] AdvReac Other Verified 04/03/25 00:16 (Glucocorticoids) (steroids) Ccxjjrd-AGJ-OkJ Reductase AdvReac Other Verified 04/03/25 00:16 Inhibitor (Liinqal-Pnk-Zzq Reductase Inhibitor) Family History Mother COPD (chronic [...] 76.4 H, Lymph % (Auto) 13.5 L, [place] % (Auto) 7.0, Eos % (Auto) 1.9, [...] (Auto) 94.8 H, Lymph % (Auto) 3.3L, [place] % (Auto) 1.1, Eos % (Auto) 0.0, [...] possibly multifocal congestion and/or pneumonia. Reading Location: [facility] Chest CTA 04/03/25 02:34 IMPRESSION: Mild bilateral pleural effusions. Passive atelectatic airspace disease/airspace consolidations of the lower lobes. Bilateral chronic perihilar interstitial pulmonary thickening with associated mild multifocal ground-glass densities, possibly superimposed pneumonia. Mild diffuse spondylosis. No CT evidence of pulmonary embolus or aortic dissection. Reading Location: [facility] Charges/Coding Visit Charges Inpatient E&M: 92060 Init Hosp L3 04/03/25 0904 <Electronically signed by Landry aFgan DO> Cosigner Signature (if applicable): CC: Dr. Ryley Jeter MD~ Signed [facility] Work Phone: 1(112) 296-910406-03-2025 Consult note [facility] Medical Records Department [address] [place] [address] Consultation - Aperture Mask Etcher 04/03/25 0850 MR#: [id number] Acct: [id number] Name: ENOC ARMANDO Rep #:[id number] : 1945 79 From: Landry Fagan DO [...] without intubation This note was generated with [employer] software. It may contain incorrectwords, spelling, and [...] he has never been evaluated by a solar/renewable energy sales or completed pulmonary function studies. Therefore, it is unknown if the patient has underlying obstructive lung disease. He does not utilize any inhalers at his [facility]. On presentation to the emergency department, the [...] AdvReac Other Verified 04/03/25 00:16 (Glucocorticoids) (steroids) Ajdsoay-KOF-GkP Reductase AdvReac Other Verified 04/03/25 00:16 Inhibitor (Ewcvuzr-Bdf-Plp Reductase Inhibitor) Family History Mother COPD (chronic [...] 76.4 H, Lymph % (Auto) 13.5 L, [place] % (Auto) 7.0, Eos % (Auto) 1.9, Baso % (Auto) 0.6, Absolute Neuts (auto) 12.0 H, Absolute Lymphs (auto) 2.12, Nucleated RBC % 0, PT 13.4, INR 1.0,APTT 37.3 H, D-Dimer Quant (PE/DVT) 1.86 H*, Sodium 139, Potassium 4.4,Chloride 104, Carbon Gnjokyq65.8 L, Anion Gap 14, BUN 42 H, [...] (Auto) 94.8 H, Lymph % (Auto) 3.3L, [place] % (Auto) 1.1, Eos % (Auto) 0.0, [...] pulmonary embolus or aortic dissection. [facility] Charges/Coding Visit Charges Inpatient E&M: 03772 Init Hosp L3 04/03/25 0904 Cosigner Signature (if applicable): CC: Dr. Ryley Jeter MD~ Signed [facility]06-03-2025 History and physical note Author Dyana Hwang [facility] Note Date/Time April 03, 2025 4:42a m [facility] Medical Records Department [address] [place] [address] H&P Exam - Hospitalist 04/03/25 0402 MR#: [id number] Acct: [id number] Name: ENOC ARMANDO Rep #:[id number] : 1945 79 From: Dyana Hwang MD [...] pathology, Tobacco use who presents to the [facility] ED on 04/03/2025 with history of [...] AdvReac Other Verified 04/03/25 00:16 (Glucocorticoids) (steroids) Pgauapj-JEP-KyD Reductase AdvReac Other Verified 04/03/25 00:16 Inhibitor (Ussbxxk-Lav-Yte Reductase Inhibitor) Family History (Updated 04/03/25 @ [...] 76.4 H, Lymph % (Auto) 13.5 L, [place] % (Auto) 7.0, Eos % (Auto) 1.9, [...] possibly multifocal congestion and/or pneumonia. Reading Location: [place] [address] Chest CTA 04/03/25 02:34 IMPRESSION: Mild bilateral pleural effusions. Passive atelectatic airspace disease/airspace consolidations of the lower lobes. Bilateral chronic perihilar interstitial pulmonary thickening with associated mild multifocal ground-glass densities, possibly superimposed pneumonia. Mild diffuse spondylosis. No CT evidence of pulmonary embolus or aortic dissection. Reading Location: [place] [address] Assessment & Plan Assessment/Plan (1) Acute hypoxic respiratory failure: PLAN: Plan The patient is an 79 y/o M w/ PMHx: CKD stage III unclear subtype per GFR trending, Chronic macrocytic anemia, HTN, HLD, Diabetes mellitus type II, BPH with obstructive pathology, Tobacco use who presents to the [facility] ED on 04/03/2025 with history of [...] 16 minutes. Charges/Coding Visit Charges Inpatient E&M: 06826 Init Hosp L3 Procedures Hospitalists Procedures: 58293 Advncd Care Plan 30 Min 04/03/25 0442 <Electronically signed by Dyana Hwang MD> Cosigner Signature (if applicable): CC: Dr. Dyana Hwang MD; Dr. Ryley Jeter MD~ Signed [facility] Work Phone: 1(614) 252-743106-03-2025 Evaluation note* Diagnosis Onset Date Resolution Status Admit Date Acute hypoxic respiratory failure ac [place] April 03, 2025 4:16am MADON[place] (acute kidney injury) acute April 03, 2025 4:16am Anemia acute April 03, 2025 4:16am Bradycardia acute April 03 4:16am LV dysfunction acute April 03, 2025 4:16am Non-STEMI (non-ST elevated myocardial infarction) acute April 03, 2025 4:16am CKD (chronic kidney disease) , stage III chronic April 03, 2025 4 :16am HTN (hypertension) chronic April 032024 4:16am [facility] Work Phone: 1(813) 120-134106-03-2025 Evaluation note* Diagnosis Onset Date Resolution Status [...] 3:06am COPD exacerbation chronic April 192024 3:06am [facility] Work Phone: 1([phone]) 561-959406-03-2025 Evaluation note* Diagnosis Onset Date Resolution Status [...] 3:06am COPD exacerbation chronic April 192024 3:06am [facility] Work Phone: 1(577) 289-768706-03-2025 Discharge summary Author John Brandon [facility] Note Date/Time April 03, 2025 4:11a m [facility] Medical Records Department [address] [place] [address] Emergency Department Summary 04/03/25 MR#: [id number] Acct: [id number] Name: ENOC ARMANDO Rep #:[id number] : 1945 79 From: John Ramirez PCP: [...] AdvReac Other Verified 04/03/25 00:16 (Glucocorticoids) (steroids) Qmodhzt-Fbd-Nqb Reductase AdvReac Other Verified 04/03/25 00:16 Inhibitor [...] (L/min) 4 Fraction of Inspired Oxygen (FIO2) [facility] Narrative Medical decision making narrative: HISTORY OF [...] reviewed, Vital signs reviewed Constitutional: please see [facility] HENT: MMM Eyes: Pupils equal round [...] MEDICAL DECISION MAKING: Chief Complaint: please see [facility] External records reviewed: Reviewed prior imaging studies: [...] Consults: internal medicine only sees Dr. Hwang) [facility] Narrative: The patient was initially tachycardic, tachypneic, [...] to ICU This note was generated with [employer] dictation software. It may contain incorrectwords, spelling, [...] 76.4 H Lymph % (Auto) 13.5 L [place] % (Auto) 7.0 Eos % (Auto) 1.9 [...] possibly multifocal congestion and/or pneumonia. Reading Location: [place] [address] Discharge Plan Triage Chief Complaint: Shortness of [...] MD [Primary Care Provider] - Print Language: Cuban What to do if you have Problems For any increased pain, shortness of breath, bleeding, nausea or vomiting, chestpain, or any unexpected problems, contact your Primary Care Provider. Call [facility] ([phone]) or report to the closest Emergency Room. Call 911 if necessary. 04/03/25 0411 <Electronically signed by John Brandon DO> Cosigner Signature (if applicable): CC: Dr. Ryley Jeter MD ~ Signed [facility] Work Phone: 1(263) 706-903606-03-2025 History and physical note [facility] Medical Records Department [address] [place] [address] H&P Exam - Hospitalist 04/03/25 0402 MR#: [id number] Acct: [id number] Name: ENOC ARMANDO Rep #:[id number] : 1945 79 From: Dyana Hwang MD [...] pathology, Tobacco use who presents to the [facility] ED on 04/03/2025 with history of [...] AdvReac Other Verified 04/03/25 00:16 (Glucocorticoids) (steroids) Kvqhvam-TBG-SoT Reductase AdvReac Other Verified 04/03/25 00:16 Inhibitor (Wtyyjpy-Wfs-Fbu Reductase Inhibitor) Family History (Updated 04/03/25 @ [...] 76.4 H, Lymph % (Auto) 13.5 L, [place] % (Auto) 7.0, Eos % (Auto) 1.9, [...] possibly multifocal congestion and/or pneumonia. Reading Location: [place] [address] Chest CTA 04/03/25 02:34 IMPRESSION: Mild bilateral pleural effusions. Passive atelectatic airspace disease/airspace consolidations of the lower lobes. Bilateral chronic perihilar interstitial pulmonary thickening with associated mild multifocal ground-glass densities, possibly superimposed pneumonia. Mild diffuse spondylosis. No CT evidence of pulmonary embolus or aortic dissection. Reading Location: [place] [address] Assessment & Plan Assessment/Plan (1) Acute hypoxic respiratory failure: PLAN: Plan The patient is an 79 y/o M w/ PMHx: CKD stage III unclear subtype per GFR trending, Chronic macrocytic anemia, HTN, HLD, Diabetes mellitus type II, BPH with obstructive pathology, Tobacco use who presents to the [facility] ED on 04/03/2025 with history of [...] any pulmonary embolus or aortic dissection, initial mgtyhbaw49qumz repeat delta troponin 76. Will maintain on [...] 16 minutes. Charges/Coding Visit Charges Inpatient E&M: 65468 Init Hosp L3 Procedures Hospitalists Procedures: 12682 Advncd Care Plan 30 Min 04/03/25 0442 Cosigner Signature (if applicable): CC: Dr. Dyana Hwang MD; Dr. Ryley Jeter MD~ Signed [facility]06-03-2025 Discharge summary [facility] Medical Records Department [address] [place] [address] Emergency Department Summary 04/03/25 MR#: [id number] Acct: [id number] Name: ENOC ARMANDO Rep #:[id number] : 1945 79 From: John Ramirez PCP: Dr. Ryley Jeter MD Status:REG ER Location: ED HPI History of Present Illness Chief Complaint: [facility] Medical History Pneumonia COVID [...] AdvReac Other Verified 04/03/25 00:16 (Glucocorticoids) (steroids) Iiwheqr-Nwp-Emv Reductase AdvReac Other Verified 04/03/25 00:16 Inhibitor [...] Consults: internal medicine only sees Dr. Hwang) [facility] Narrative: The patient was initially tachycardic, tachypneic, [...] to ICU This note was generated with [employer] dictation software. It may contain incorrectwords, spelling, [...] 76.4 H Lymph % (Auto) 13.5 L [place] % (Auto) 7.0 Eos % (Auto) 1.9 [...] possibly multifocal congestion and/or pneumonia. Reading Location: [place] [address] Discharge Plan Triage Chief Complaint: Shortness of [...] MD [Primary Care Provider] - Print Language: Cuban What to do if you have Problems For any increased pain, shortness of breath, bleeding, nausea or vomiting, chestpain, or any unexpected problems, contact your Primary Care Provider. Call [facility] ([phone]) or report tothe closest Emergency Room. Call 911 if necessary. 04/03/25 0411 Cosigner Signature (if applicable): CC: Dr. Ryley Jeter MD ~ Signed [facility]06-03-2025 Radiology Diagnostic study note [facility] Imaging Services [address] [place] [address] CTA Chest W/WO Contrast MR#: [id number] Acct: [id number] Name: ENOC ARMANDO Rep #: [id number] : 1945 M 79 From: Darcy Reese MD PCP: Dr. Ryley Jeter MD Status: REG ER Study:CTA Chest W/WO Contrast Date of Exam: 04/03/25 Exam# [id number] Ordering Dr: Mine Brandon DO PROCEDURE: CTA [...] pulmonary embolus or aortic dissection. Reading Location: [place] [address] CC: Dr. Ryley Jeter MD; Dr. John Brandon DO ~ Healthcare Receptionist: Signed [facility]06-03-2025 Radiology Diagnostic study note [facility] Imaging Services [address] [place] [address] Chest 1 View (Portable) MR#: [id number] Acct: [id number] Name: ENOC ARMANDO Rep #: [id number] : 1945 M 79 From: Darcy Reese MD PCP: Dr. Ryley Jeter MD Status: REG ER Study:Chest 1 View (Portable) Date of Exam: 04/03/25 Exam# [id number] Ordering Dr: Mine Brandon DO PROCEDURE: CHEST 1 VIEW (PORTABLE) 04/03/2025 REASON FOR EXAM: SOB TECHNIQUE: Frontal view of the chest. COMPARISON: 09/12/2024. FINDINGS: Bilateral perihilar and lower lobe multifocal airspace opacities of the lungs. There is no demonstrated pleural abnormality. Normal heart and pericardium. Normal mediastinum and rehaan. Normal visualized pulmonary arteries. Normal visualized aortic [...] possibly multifocal congestion and/or pneumonia. Reading Location: [place] [address] CC: Dr. Ryley Jeter MD; Dr. John Brandon DO ~ Healthcare Receptionist: Signed [facility]05-27-2025 Telephone encounter Note* Telephone Encounter - Ej Guidry MA - 03/27/2025 1:23 PM EDT Called pt's Alice with lab results per Dr. Small. Alice verbalized understanding and had no further questions. [id number] Miscellaneous Notes* Telephone Encounter - Ej Guidry [...] To: Woo Small MD documented in this [id number] Telephone encounter Note* Telephone Encounter - Ej Guidry MA - 03/27/2025 10:50 AM EDT Left voicemail asking for pt to call back to go over lab results per Dr. Small. Given phone number caroline back. [id number] Telephone encounter Note* Telephone Encounter - Ej [...] 7:18 AM EDT To: Woo Small MD [id number] NotePatient ID: Enoc Armando is a 79 [...] being taken. Patient does not see a metal sander. Eye exam is current. Currently taking: No [...] medications, past family his (more content not included)...[facility]05-12-2025 History of Present illness Narrative* Paty Ortega, [facility] - 03/12/2025 1:50 PM EDT Images from [...] being taken. Patient does not see a metal sander. Eye exam is current. Currently taking: No [...] if BG <150 at HS. 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 Had bilat cataract extraction Dr. Lopez. Sees Dr. Browne in [place] every year routinely.Has blurred vision with low [...] Call if BG consistently <70 or >250. [phone] Continue to check blood sugar 3 times [...] CNP 03/12/25 1:21 PM documented in this [id number] NoteGeneral Cardiology New Patient Clinic Consult [facility], Heart & Vascular 03/09/2025 Woo Small MD [address] [place] [address], 3rd Floor Medical Office [facility] [address] Patient: Enoc Armando Date [...] to be ischemic 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 (Primary) Patient underwent [...] follow-ups on file. Woo Small MD, [facility] Non-Invasive Cardiology [facility] Physician [facility] P:[phone] F:[phone] History of Present Illness: Enoc Armando is a 79 y.o. man with a past medical history of insulin-dependent diabetes for 30 years, history of tobacco use, recent COVID infection with systolic dysfunction ejection fraction ranging from 35 to 45% who presented initially to [facility] care. He underwent stress testing which showed inferior wall abnormality as well as ejection fraction of 50%. I initially met with him back in January 2024 and he was doing quite well, however he presented in October with symptoms of fatigue, malaise, flash pulmonary edema and hypertensive emergency with reduced ejection fraction at [facility]. 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; Service: Cardiovascular ND CATH PLMT L HRT & ARTS W/NJX & ANGIO IMG S&I N/A 10/27/2024 Procedure: Left Heart Cath; Surgeon: Elías Rodriguez MD; Location: [facility]BR[employer] [facility]IST[facility]; Service: Cardiovascular SKIN CANCER EXCISION 09/2021 L ear Family History Problem Relation Age of Onset Coronary artery disease Father Alzheimer's disease Father Social History Tobacco Use Smoking Statu (more content not included)...[facility] [id number] History of Present illness Narrative* Woo Small MD - 03/09/2025 9:39 AM EDT General Cardiology New Patient Clinic Consult [facility], Heart & Vascular 03/09/2025 Woo Small MD [address] [place] [address] 3rd Floor Medical Office [facility] [address] Patient: Enoc Armando Date [...] to be ischemic 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 (Primary) Patient underwent [...] follow-ups on file. Woo Small MD, [facility] Non-Invasive Cardiology [facility] P:[phone] F:[phone] History of Present Illness: Enoc Armando is a 79 y.o. man with a past medical history of insulin-dependent diabetes for 30 years, history of tobacco use, recent COVID infection with systolic dysfunction ejection fraction ranging from 35 to 45% who presented initially to [facility]. He underwent stress testing which showedinferior wall abnormality as well as ejection fraction of 50%. I initially met with him back in January 2024 and he was doing quite well, however he presented in October with symptoms of fatigue, malaise, flash pulmonary edema and hypertensive emergency with reduced ejection fraction at [facility]. 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;Service: Cardiovascular ND CATH PLMT L HRT & ARTS W/NJX & ANGIO IMG S&I N/A 10/27/2024 Procedure: Left Heart Cath; Surgeon: Elías Rodriguez MD; 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..] arterial duplex was normal Echocardiogram reviewed from [facility], 10/11/2023 moderately decreased ejection fraction estimated [...] history suggesting prior/existing ASCVD documented in this [id number] Instructions* Patient Instructions* Woo Small MD - 03/09/2025 7:56 AM EDT How to Contact your Care Team: Provider: Dr. Woo Small MD Clinic Nurse: FIDEL Moran Clinic MA: VIVI Pagan REFILLS: When in need for refills please call your care team or the office at [phone]. Please include medication name, pharmacy name, and [...] work in 2 weeks documented in this [id number] NoteHMS DISCHARGE SUMMARY -- [facility] Enoc Armando : 1945 Admitted: 02/28/2025 Discharge Date: 03/05/25 PCP Handoff Recommended Outpatient Testing None Results Pending At Discharge None Clinical Summary Enoc Armando is a 79 y.o. male patient of Ryley Jeter MD with history of type I IDDM, hypertension, CAD, diastolic HF, dyslipidemia, COPD, CKD presented to [facility] on 02/28/2025 with shortness of breath. [...] by mouth daily . (more content not included)...[facility]05-04-2025 NoteHMS PROGRESS NOTE Patient Name: Enoc Armando : 1945 Assessment and Plan Enoc Armando is a 79 y.o. male patient of Ryley Jeter MD with history of type I IDDM, hypertension, CAD, diastolic HF, dyslipidemia, COPD, CKD presented to [facility] on 02/28/2025 with shortness of breath. [...] affect AUTHENTICATED BY BERNADETTE PARNELL ON 03/04/2025 11:10:[address] [place] [address] 03-03-2025 NoteHMS PROGRESS NOTE Patient Name: Enoc Armando : 1945 Assessment and Plan Enoc Armando is a 79 y.o. male patient of Ryley Jeter MD with history of type I IDDM, hypertension, CAD, diastolic HF, dyslipidemia, COPD, CKD presented to [facility] on 02/28/2025 with shortness of breath. [...] Psych: normal mood and affect AUTHENTICATED BY BERNDAETTE PARNELL, ON 03/03/2025 12:05:[address] [place] [address] 03-03-2025 NoteGeneral Cardiology Inpatient Follow-up Heart & Vascular [facility] 03/03/2025 Aparna Browne, [facility] Patient: Enoc Armando Date of : 1945 (79 y.o.) PCP: Ryley Jeter MD Primary comfort station supervisor: Assessment/Plan: Enoc Armando is a 79 y.o. [...] Final Result by Elías Rodriguez MD (10/27/2024 0907) Review of Systems: The following system(s) were [...] dictation software was used Aparna Browne MSN, JIG INSPECTOR, ANP-C [1] Current Facility-Administered Medications Medication Dose [...] 0-5,000 Units Intravenous Con (more content not included)...[facility]05-02-2025 NoteHMS PROGRESS NOTE Patient Name: Enoc Armando : 1945 Assessment and Plan Enoc Armando is a 79 y.o. male patient of Ryley Jeter MD with history of type I IDDM, hypertension, CAD, diastolic HF, dyslipidemia, COPD, CKD presented to [facility] on 02/28/2025 with shortness of breath. [...] affect AUTHENTICATED BY PEMA DUNBAR, ON 03/02/2025 13:48:04[facility] 03-01-2025 NoteHMS PROGRESS NOTE Patient Name: Enoc Armando : 1945 Assessment and Plan Enoc Armando is a 79 y.o. male patient of Ryley Jeter MD with history of type I IDDM, hypertension, CAD, diastolic HF, dyslipidemia, COPD, CKD presented to [facility] on 02/28/2025 with shortness of breath. [...] affect AUTHENTICATED BY PEMA DUNBAR, ON 03/01/2025 12:52:[address] [place] [address] 02-28-2025 NoteHMS PROGRESS NOTE Patient Name: Enoc Armando : 1945 Assessment and Plan Enoc Armando is a 79 y.o. male patient of Ryley Jeter MD with history of type I IDDM, hypertension, CAD, diastolic HF, dyslipidemia, COPD, CKD presented to [facility] on 02/28/2025 with shortness of breath. [...] affect AUTHENTICATED BY PEMA DUNBAR, ON 02/28/2025 13:04:[address] [place] [address] 02-28-2025 NoteHMS HISTORY AND PHYSICAL -- [facility] Patient Name: Enoc Armando : 1945 MR #: [id number] Admit Date: 02/28/2025 Physicians: Ryley Jeter MD (Family); No ref. provider found (Referring) Enoc Armando is a 79 y.o. male patient of Ryley Jeter MD with history of type I IDDM, hypertension, CAD, diastolic HF, dyslipidemia, COPD, CKD presented to [facility] on 02/28/2025 with shortness of breath. [...] diastolic HF, dyslipidemia, COPD, CKD presented to [facility] on 02/28/2025 with shortness of breath. 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; Service: Cardiovascular ND CATH PLMT L HRT & ARTS W/NJX & ANGIO IMG S&I N/A 10/27/2024 Procedure: Left Heart Cath; Surgeon: Elías Rodriguez MD; Location: [facility] HYBRID ASSISTANT TEACHER; Service: Cardiovascular SKIN CANCER EXCISION 09/2021 L ear Family History Family History Problem Relation Age of Onset Coronary artery disease Father Alzheimer's disease Father Social History Tobacco Use History[1] Social History Substance and Sexual Activity Alcohol Use No Alcohol/week: 0.0 standard drinks of alcohol Social History Substance and Sexual Activity Drug Use No Allergy Information I have reviewed the patient's allergies. Plsjcxt-jpz-xom reductase inhibitors Home Medications Home medications were reviewed. Review Of Systems All relevant systems have been reviewed and are negative except as noted in HPI or below Physical Examination BP (!) 194/62 Pulse 97 Temp 97.8 degrees F (36.6 degrees C) (Oral) Resp (!) 22 Ht 5' 7 Wt 65.8 (more content not included)...[facility]04-28-2025 History of Present illness Narrative* Ayanna [...] DO 02/26/25 1:17 PM documented [facility] this [facility] Work Phone: 1(761) 388-160704-16-2025 History of Present illness Narrative* Ej Guidry MA - 02/14/2025 11:02 AM EDT Refaxed letter written on 01/18/[address] Small to [facility]. documented in this [id number] Instructions* Patient Instructions* Luisa Easley RN - 11/14/2024 11:36 AM EST How to Contact your Care Team: Provider: Dr. Woo Small MD Clinic Nurse: FIDEL Moran Clinic MA: VIVI Pagan REFILLS: When in need for refills please call your care team or the office at [phone]. Please include medication name, pharmacy name, and specify 30-day or 90-day supply. Please check with your pharmacy within 24 hours of request for your refill. You must follow up as directed to continue current refills. Thank you! documented in this [id number] History of Present illness Narrative* Woo Small MD - 11/14/2024 10:40 AM EST General Cardiology New Patient Clinic Consult [facility], Heart & Vascular 11/14/2024 Woo Small MD [address] [place] [address] [phone] Patient: Enoc Armando Date of : 1945 (78 y.o.) PCP: Ryley Jeter MD Date of Service: 11/14/2024 Chief Complaint: Follow-up Assessment and Plan: 1. 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(Primary) Patient underwent left [...] months (around 05/14/2025). Woo Small MD, [facility] Non-Invasive Cardiology [facility] P:[phone] F:[phone] History of Present Illness: Enoc Armando is a 78 y.o. man with a past medical history of insulin-dependent diabetes for 30 years, history of tobacco use, recent COVID infection with systolic dysfunction ejection fraction ranging from 35 to 45% who presented initially to [facility]. He underwent stress testing which showedinferior wall abnormality as well as ejection fraction of 50%. I initially met with him back in January 2024 and he was doing quite well, however he presented in October with symptoms of fatigue, malaise, flash pulmonary edema and hypertensive emergency with reduced ejection fraction at [facility]. 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 Tobacco abuse Past Surgical History: Procedure Laterality Date CATARACT EXT/ECCE Bilateral 12/2012,07/2014 ND CATH PLMT L HRT & ARTS W/NJX & ANGIO IMG S&I N/A 10/27/2024 Procedure: Coronary Angiogram; Surgeon: Elías Rodriguez MD; Location: HYBRID ASSISTANT TEACHER;Service: Cardiovascular ND CATH PLMT L HRT & ARTS W/NJX & ANGIO IMG S&I N/A 10/27/2024 Procedure: Left Heart Cath; Surgeon: Elías Rodriguez MD; Location: HYBRID ASSISTANT TEACHER; Service: Cardiovascular SKIN CANCER EXCISION 09/2021 L ear Family History Problem Relation Age of Onset Coronary artery disease Father Alzheimer's disease Father Social History Tobacco Use Smoking Status Every Day Current packs/day: 0.50 Average packs/day: 0.5 packs/day for 61.0 years (30.5 ttl pk-yrs) Types: Cigarettes Start date: 1965 Smokeless Tobacco Never Allergies: Lftfcan-zci-nzg reductase inhibitors All of the information has [...] 90 tablet, Rfl: 3 OXYGEN-AIR DELIVERY SYSTEMS [facility], Inhale 2 L/min [...] mood and affect, appropriate conversation Cardiovascular Studies: [facility] 2024 Echo 2023 Carotids 2024 Summary [...] arterial duplex was normal Echocardiogram reviewed from [facility], 10/11/2023 moderately decreased ejection fraction estimated [...] history suggesting prior/existing ASCVD documented in this [id number] NoteGeneral Cardiology New Patient Clinic Consult [facility], Heart & Vascular 11/14/2024 Woo Small MD [address] [place] [phone] Patient: Enoc Armando Date of : 1945 (78 y.o.) PCP: Ryley Jeter MD Date of Service: 11/14/2024 Chief Complaint: Follow-up Assessment and Plan: 1. 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 (Primary) Patient underwent [...] months (around 05/14/2025). Woo Small MD, [facility] Non-Invasive Cardiology [facility] P:[phone] F:[phone] History of Present Illness: Enoc Armando is a 78 y.o. man with a past medical history of insulin-dependent diabetes for 30 years, history of tobacco use, recent COVID infection with systolic dysfunction ejection fraction ranging from 35 to 45% who presented initially to [facility] care. He underwent stress testing which showed inferior wall abnormality as well as ejection fraction of 50%. I initially met with him back in January 2024 and he was doing quite well, however he presented in October with symptoms of fatigue, malaise, flash pulmonary edema and hypertensive emergency with reduced ejection fraction at [facility]. 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 Tobacco abuse Past Surgical History: Procedure Laterality Date CATARACT EXT/ECCE Bilateral 12/2012,07/2014 ND CATH PLMT L HRT & ARTS W/NJX & ANGIO IMG S&I N/A 10/27/2024 Procedure: Coronary Angiogram; Surgeon: Elías Rodriguez MD; Location: [facility] HYBRID ASSISTANT TEACHER; Service: Cardiovascular ND CATH PLMT L HRT & ARTS W/NJX & ANGIO IMG S&I N/A 10/27/2024 Procedure: Left Heart Cath; Surgeon: Elías Rodriguez MD; Location: HYBRID ASSISTANT TEACHER; Service: Cardiovascular SKIN CANCER EXCISION 09/2021 L ear Family History Problem Relation Age of Onset Coronary artery disease Father Alzheimer's disease Father Social History Tobacco Use Smoking Status Every Day Current packs/day: 0.50 Average packs/day: 0.5 packs/day for 61.0 years (30.5 ttl pk-yrs) Types: Cigarettes Start date: 1965 Smokeless Tobacco Never Allergies: Wkwtrcs-ukv-qif reductase inhibitors All of the information has been reviewed at today's visit and modified if necessary. Home Medications: Current Outpatient Medications: acetaminophen (Tylenol Arthritis Pain) 650 MG CR tablet, Take 1 (one) tablet (650 mg total) by mouth every 8 (eight) hours as needed for pain ., (more content not included)...[facility] [id number] NotePatient ID: Enoc Armando is a 78 [...] required IV insulin gtt. . Hospitalized in [facility]. Reports URI symptoms with ear lockage. Pertinent [...] being taken. Patient does not see a metal sander. Eye exam is current. Currently taking: No [...] kg (148 lb) 01 (more content not included)...[facility]01-13-2025 History of Present illness Narrative* Paty [...] required IV insulin gtt. . Hospitalized in [facility]. Reports URI symptoms with ear lockage. Pertinent [...] being taken. Patient does not see a metal sander. Eye exam is current. Currently taking: No [...] if BG <150 at HS. 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 Had bilat cataract extraction Dr. Lopez. Sees Dr. Browne in [place] every year routinely.Has blurred vision with low [...] Call if BG consistently <70 or >250. [phone] Continue to check blood sugar 3 times [...] CNP 11/13/24 1:21 PM documented in this [id number] Evaluation + Plan note* Assessment & Plan [...] be performed in conjunction with coronary revascularization. [id number] Miscellaneous Notes* Assessment & Plan Note - [...] conjunction with coronary revascularization. 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[facility] [id number] History of Present illness Narrative* Kristy Parker MD - 11/09/2024 10:36 AM EST OFFICE CONSULTATION NOTE [facility] Heart and Vascular Physicians [facility] [address] ([address]) [facility] [address] [facility] [phone] Physicians: Ryley Jeter MD [...] Carotid artery stenosis CHF (congestive heart failure) ([facility]) CKD (chronic kidney disease) stage 4, GFR 15-29 ml/min (HCC) Diabetes mellitus type 1 (HCC) Emphysema lung (HCC) Hypercholesterolemia Hypertension Kidney stone 2006 Lithotripsy Normocytic anemia PAD (peripheral artery disease) ([facility]) Pneumonia Polyneuropathy Spinal stenosis, lumbar 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 Tobacco abuse Past Surgical History: Procedure Laterality Date CATARACT EXT/ECCE Bilateral 12/2012,07/2014 ND CATH PLMT L HRT & ARTS W/NJX & ANGIO IMG S&I N/A 10/27/2024 Procedure: Coronary Angiogram; Surgeon: Elías Rodriguez MD; Location: HYBRID ASSISTANT TEACHER;Service: Cardiovascular ND CATH PLMT L HRT & ARTS W/NJX & ANGIO IMG S&I N/A 10/27/2024 Procedure: Left Heart Cath; Surgeon: Elías Rodriguez MD; Location: HYBRID ASSISTANT TEACHER; Service: Cardiovascular SKIN CANCER EXCISION 09/2021 L [...] Reported on 11/09/2024 .) Allergies Allergen Reactions Zhmzigk-Icd-Svn Reductase Inhibitors Muscle cramps ROS Negative aside [...] 11/27/2023 Kristy Parker MD documented in this [id number] Instructions* Patient Instructions* Yesenia Mcdaniel MA - 11/09/2024 10:32 AM EST How to contact your Care Team: Provider: MD Georgia Ludwig CNP Nyoka Fauser, CNP Jill Bender, PA Nurse: Jeannie Rubio RN To reschedule office appointments call Scheduling [phone] In case of an emergency please call 911. When in need of refills please call the phone number listed above. Please include medication name, pharmacy name and specify 30 or 90 day supply Please check with your pharmacy within 24 hours of your request for refill. You must follow up as directed to continue current refills. Thank you! documented in this [id number] Amanda Armando [id number] @[email or web address]@ Brock Groves MD 11/07/24 Room/bed info not found Consultation No ref. provider found No chief complaint on file. History of Present Illness Mr. Enoc Armnado is a 78-year-old male referred to our [...] right heart failure which required admission to [facility] for hypertensive emergency and acute flash [...] artery stenosis - CHF (congestive heart failure) ([facility]) - CKD (chronic kidney disease) stage 4, GFR 15-29 ml/min ([facility]) - Diabetes mellitus type 1 ([facility]) - Emphysema lung ([facility]) - Hypercholesterolemia - Hypertension - Kidney stone 2006 Lithotripsy - Normocytic anemia - PAD (peripheral artery disease) ([facility]) - Pneumonia - Polyneuropathy - Spinal stenosis, lumbar - 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 - Tobacco abuse Past Surgical History: Procedure Laterality Date - CATARACT EXT/ECCE Bilateral 12/2012,07/2014 - ND CATH PLMT L HRT & ARTS W/NJX & ANGIO IMG S&I N/A 10/27/2024 Procedure: Coronary Angiogram; Surgeon: Elías Rodriguez MD; Location: [facility] ASSISTANT TEACHER; Service: Cardiovascular - ND CATH PLDC L HRT & ARTS W/NJX & ANGIO IMG S&I N/A 10/27/2024 Procedure: Left Heart Cath; Surgeon: Elías Rodriguez MD; Location: HYBRID ASSISTANT TEACHER; Service: Cardiovascular - SKIN CANCER EXCISION 09/2021 [...] 3 - insulin g (more content not included)...[facility]01-07-2025 History of Present illness Narrative* Brock Groves MD - 11/07/2024 10:36 AM EST Enoc Armando [id number] @[email or web address]@ Brock Groves MD 11/07/24 Room/bed info [...] right heart failure which required admission to [facility] for hypertensive emergency and acute flash 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 90 tablet 3 OXYGEN-AIR DELIVERY SYSTEMS [facility] Inhale 2 L/min [...] file prior to visit. Allergies Allergen Reactions Syncuda-Jca-Wnx Reductase Inhibitors Muscle cramps Family History Problem [...] Resource Strain: Low Risk (10/11/2023) [facility], [facility] Overall Financial Resource Strain (CARDIA) Difficulty [...] Addressed This Visit None documented in this [id number] Progress note* Quick Note - Karthik Sandoval RN - 10/28/2024 2:53 PM EST Patient blood sugar at 1:27pm measured 288. Blood sugar at this time measured 321. [facility] ordered to give 8 units of lispro at this time and to instruct patient to recheck blood sugar in a couple hours at home. Patient IV removed and discharge education provided at this time. Patient understands and verbalizes he will check blood sugar when home and to follow medication regimen after discharge [id number] Miscellaneous Notes* Quick Note - Karthik Sandoval RN - 10/28/2024 2:53 PM EST Patient blood sugar at 1:27pm measured 288. Blood sugar at this time measured 321. [facility] ordered to give 8 units of lispro [...] but appreciative with provided care. Bed alarm central communications specialist light in reach. * Plan of [...] potasium and elevated glucose. documented in this [id number] NoteHMS DISCHARGE SUMMARY -- [facility] Enoc Armando Admitted: 10/27/2024 Discharge Date: 10/28/24 PCP Handoff Recommended Outpatient Testing none Results Pending At Discharge none Clinical Summary Enoc Armando is a 78 y.o. male patient of Ryley Jeter MD with history of coronary artery disease, type 1 diabetes, diastolic CHF, hypertension dyslipidemia COPD and lumbar spinal stenosis with chronic low back pain presented to [facility] on 10/27/2024 for an elective left [...] . Physician(s) Follow Up: Brock Groves MD [address] [place] [id number] Follow up on 11/07/2024 Consultation for surgivcal [...] PM AUTHENTICATED BY NIDIA GARAY, ON 10/28/2024 14:19:[address] [place] [address] 10-28-2024 Hospital course Narrative* Nidia Garay MD - 10/28/2024 2:16 PM EST [facility] DISCHARGE SUMMARY -- [facility] Enoc Armando Admitted: 10/27/2024 Discharge Date: 10/28/24 PCP Handoff Recommended Outpatient Testing none Results Pending At Discharge none Clinical Summary Enoc Armando is a 78 y.o. male patient of Ryley Jeter MD with history of coronary artery disease, type 1 diabetes, diastolic CHF, hypertension dyslipidemia COPD and lumbar spinal stenosis withchronic low back pain presented to [facility] on 10/27/2024 for an elective left [...] . Physician(s) Follow Up: Brock Groves MD [address] [place] [address] [phone] Follow up on 11/07/2024 Consultation for surgivcal [...] on 10/28/24, 2:16 PM documented in this [id number] NoteDaily Progress Note Assessment/Plan: Principal Problem: Hyperglycemia [...] Garay.. AUTHENTICATED BY ZOILA POLLARD, ON 10/28/2024 14:16:[address] [place] [address] 10-28-2024 History of Present illness Narrative* Zoila [...] Garay MD - 10/28/2024 11:36 AM EST [facility] [place] Assessment and Plan Enoc Armando is a 78 y.o. male patient of Ryley Jeter MD with history of coronary artery disease, type 1 diabetes, diastolic CHF, hypertension dyslipidemia COPD and lumbar spinal stenosis withchronic low back pain presented to [facility] on 10/27/2024 for an elective left [...] normal mood and affect documented in this [id number] NoteHMS PROGRESS NOTE Assessment and Plan Enoc Armando is a 78 y.o. male patient of Ryley Jeter MD with history of coronary artery disease, type 1 diabetes, diastolic CHF, hypertension dyslipidemia COPD and lumbar spinal stenosis with chronic low back pain presented to [facility] on 10/27/2024 for an elective left [...] affect AUTHENTICATED BY NIDIA GARAY, ON 10/28/2024 11:43:[address] [place] [address] 10-28-2024 Plan of care note* Plan of Care - Karthik Sandoval RN - 10/28/2024 9:11 AM EST Problem: Actual or potential alteration in health Goal: Absence of healthcare acquired conditions Outcome: Partially Met Goal: Knowledge of Interdisciplinary Plan of Care Outcome: Partially Met Goal: Knowledge of Enviroment Outcome: Partially Met Problem: Pressure Injury, Risk of Goal: Absence of pressure injury Outcome: Partially Met [address]kdvAwztkw36-10-7369 Progress note* Quick Note - Julia Chan RN - 10/28/2024 8:05 AM EST Patient stands at edge of bed to void and request to go to restroom. Patient does not want bedrest orders that are in place at this time. Patient is anxious for dc to home but appreciative with provided care. Bed alarm central communications specialist light in reach. [address]KsyqYpepkc39-60-5495 Plan of care note* Plan of Care [...] continue to monitor and report any concerns. [address]DzdtRtsbkp75-12-7879 Progress note* Quick Note - Julia Chan [...] drip infusing and started at 6.6 units/hr. [address]KtylWbkukv43-08-6385 Progress note* Quick Note - Julia Chan [...] excluding ice chips and sips with meds [id number] Progress note* Quick Note - Julia Chan RN - 10/27/2024 10:18 PM EST This RN received report from observation unit nurse via phone. [id number] Plan of care note* Plan of Care - Carlita Roth RN - 10/27/2024 9:42 PM EST Problem: Actual or potential alteration in health Goal: Absence of healthcare acquired conditions Outcome: Partially Met Goal: Knowledge of Interdisciplinary Plan of Care Outcome: Partially Met Goal: Knowledge of Enviroment Outcome: Partially Met [id number] History and physical note* Cintia Benitez MD - 10/27/2024 8:26 PM EST [facility] -- [facility] Patient Name: Enoc Armando : 1945 MR #: [id number] Admit Date: 10/27/2024 Physicians: Ryley Jeter MD (Family); No ref. provider found (Referring) Enco Armando is a 78 y.o. male patient of Ryley Jeter MD with history of coronary artery disease, type 1 diabetes, diastolic CHF, hypertension dyslipidemia COPD and lumbar spinal stenosis withchronic low back pain presented to [facility] on 10/27/2024 for an elective left [...] with chronic low back pain presented to [facility] on 10/27/2024 for an elective left [...] Information I have reviewed the patient's allergies. Kjdnije-epy-rtf reductase inhibitors Home Medications Home medications were [...] normal coloration Psych: normal mood and affect [id number] NoteHMS HISTORY AND PHYSICAL -- [facility] Patient Name: Enoc Armando : 1945 MR #: [id number] Admit Date: 10/27/2024 Physicians: Ryley Jeter MD (Family); No ref. provider found (Referring) Enoc Armando is a 78 y.o. male patient of Ryley Jeter MD with history of coronary artery disease, type 1 diabetes, diastolic CHF, hypertension dyslipidemia COPD and lumbar spinal stenosis with chronic low back pain presented to [facility] on 10/27/2024 for an elective left [...] with chronic low back pain presented to [facility] on 10/27/2024 for an elective left [...] Information I have reviewed the patient's allergies. Hezqwnx-dxr-wte reductase inhibitors Home Medications Home medications were [...] Skin: normal coloration Psych: (more content not included)...[facility]12-27-2024 History and physical note* Cintia Benitez MD - 10/27/2024 8:26 PM EST [facility] Patient Name: Enoc Armando : 1945 [id number] Admit Date: 10/27/2024 Physicians: Ryley Jeter MD (Family); No ref. provider found (Referring) Enoc Armando is a 78 y.o. male patient of Ryley Jeter MD with history of coronary artery disease, type 1 diabetes, diastolic CHF, hypertension dyslipidemia COPD and lumbar spinal stenosis withchronic low back pain presented to [facility] on 10/27/2024 for an elective left [...] with chronic low back pain presented to [facility] on 10/27/2024 for an elective left [...] Information I have reviewed the patient's allergies. Gwyxskf-tbf-dfk reductase inhibitors Home Medications Home medications were [...] Enoc Armando Admit Date: 12261205 MR #: [id number] : 1945 The H&P has been reviewed [...] need for emergency surgery, need for pacemaker, WI, stroke, or cardiac arrest/. Patient voiced understanding and agreed to proceed. Sedation Plan: Moderate ASA Classification: ASA 3: A patient with severe systemic disease. Mallampati Score: Class III: Only the soft palate is visible Elías Rodriguez MD 10/27/2024 8:17 AM Source Note - Woo Small MD - 10/18/2024 1:20 PM EST General Cardiology New Patient Clinic Consult [facility] Physician Group, Heart & Vascular 10/18/2024 Woo Small MD [address] [place] [address] 3rd Floor Medical Office [facility] [address] Patient: Enoc Armando Date [...] follow-ups on file. Woo Small MD, [facility] Non-Invasive Cardiology [facility] Heart and Vascular Physician Group P:[phone] F:[phone] History of Present Illness: Enoc Armando is a 78 y.o. man with a past medical history of insulin-dependent diabetes for 30 years, history of tobacco use, recent COVID infection with systolic dysfunction ejection fraction ranging from 35 to 45% who presented initially to [facility] care. He underwent stress testing which showedinferior wall abnormality as well as ejection fraction of 50%. I initially met with him back in January and he was doing quite well, however today he presents with progressive symptoms of fatigue, malaise, and a recent heart failure exacerbation at [facility] for hypertensive emergency and acute flash [...] Cigarettes Smokeless Tobacco Never Allergies: Prednisone and Hvilazn-jub-mel reductase inhibitors All of the information has [...] 90 tablet, Rfl: 3 OXYGEN-AIR DELIVERY SYSTEMS [facility], Inhale 2 L/min [...] 50%, rest LVEF 51%. Echocardiogram reviewed from [facility], 10/11/2023 moderately decreased ejection fraction estimated [...] history suggesting prior/existing ASCVD documented in this [id number] Progress note* Quick Note - Zoila Pollard [...] stage IV kidney disease, BUN/creatinine: 92/2.60 respectively. [id number] Progress note* Quick Note - Mary Willis RN - 10/27/2024 12:[address] Rodriguez notified and at bedside to speak to patient r/g Critical potasium and elevated glucose. [id number] Attending History and physical note* Elías Rodriguez MD - 10/27/2024 8:17 AM EST INTERVAL HISTORY AND PHYSICAL Patient Name: Enoc Armando Admit Date: 12261205 MR #: [id number] : 1945 The H&P has been reviewed [...] need for emergency surgery, need for pacemaker, WI, stroke, or cardiac arrest/. Patient voiced understanding and agreed to proceed. Sedation Plan: Moderate ASA Classification: ASA 3: A patient with severe systemic disease. Mallampati Score: Class III: Only the soft palate is visible Elías Rodriguez MD 10/27/2024 8:17 AM Source Note - Woo Small MD - 10/18/2024 1:20 PM EST General Cardiology New Patient Clinic Consult [facility]ician [facility], Heart & Vascular 10/18/2024 Woo Small MD [address] [place] [address] 3rd Floor Medical Office [facility] [address] Patient: Enoc Armando Date [...] follow-ups on file. Woo Small MD, [facility] Non-Invasive Cardiology [facility] Heart and Vascular Physician Group P:[phone] F:[phone] History of Present Illness: Enoc Armando is a 78 y.o. man with a past medical history of insulin-dependent diabetes for 30 years, history of tobacco use, recent COVID infection with systolic dysfunction ejection fraction ranging from 35 to 45% who presented initially to [facility] care. He underwent stress testing which showedinferior wall abnormality as well as ejection fraction of 50%. I initially met with him back in January and he was doing quite well, however today he presents with progressive symptoms of fatigue, malaise, and a recent heart failure exacerbation at [facility] for hypertensive emergency and acute flash [...] Cigarettes Smokeless Tobacco Never Allergies: Prednisone and Mcdelab-pvn-utk reductase inhibitors All of the information has [...] 90 tablet, Rfl: 3 OXYGEN-AIR DELIVERY SYSTEMS [facility], Inhale 2 L/min [...] 50%, rest LVEF 51%. Echocardiogram reviewed from [facility], 10/11/2023 moderately decreased ejection fraction estimated [...] has a medical history suggesting prior/existing ASCVD [facility] Work Phone: 1(248) 540-179312-27-2024 Hospital Discharge instructions* Discharge Instructions* Sonya King RN - 10/27/2024 8:16 AM EST [facility] Heart & Vascular Physicians Post Cardiac Catheterization Discharge Instructions Site Care Leave Bandage in place the night of your catheterization. Watch for any bleeding or oozing from thesite. If this occurs, lie flat and place direct pressure on the bandage for 20 minutes. If bleedingreoccurs call [facility]. For groins, remove your bandage [...] shower 24 hours after the procedure. Call [facility] at [phone] if you notice any of the following: [...] need of prescription assistance, please notify the [facility] nurse or call the office. If you were prescribed Plavix (clopidogrel), Effient (prasugrel), or Brilinta (ticagrelar) after your procedure, DO NOT STOP taking this medication unless told to do so by your [facility] comfort station supervisor. Follow up appointments, tests or procedures will be on your discharge paperwork under What's next. Please call [facility] at [phone] to reschedule any appointments if needed or if you have any questions or concerns. Thank you! documented in this [id number] Instructions* Patient Instructions* Luisa Easley RN - 10/18/2024 1:27 PM EST How to Contact your Care Team: Provider: Dr. Woo Small MD Clinic Nurse: Luisa Vega RN Clinic MA: Ej Guidry MA REFILLS: When in need for refills please call your care team or the office at [phone]. Please include medication name, pharmacy name, and specify 30-day or 90-day supply. Please check with your pharmacy within 24 hours of request for your refill. You must follow up as directed to continue current refills. Thank you! Heart Catheterization Date of your procedure: 10/27/2024 at 8:00am Please arrive at [facility]. Please park in the garage next to the medical office building. If needed, security professional parking is available at the front entrance [...] questions or concerns please contact us at [phone]. documented in this [id number] History of Present illness Narrative* Woo Small MD - 10/18/2024 1:20 PM EST General Cardiology New Patient Clinic Consult [facility]ician [facility], Heart & Vascular 10/18/2024 Woo Small MD [address] [place] [address], 3rd Floor Medical Office [facility] [address] Patient: Enoc Armando Date [...] follow-ups on file. Woo Small MD, [facility] Non-Invasive Cardiology [facility] Heart and Vascular Physician Group P:[phone] F:[phone] History of Present Illness: Enoc Armando is a 78 y.o. man with a past medical history of insulin-dependent diabetes for 30 years, history of tobacco use, recent COVID infection with systolic dysfunction ejection fraction ranging from 35 to 45% who presented initially to [facility] care. He underwent stress testing which showedinferior wall abnormality as well as ejection fraction of 50%. I initially met with him back in January and he was doing quite well, however today he presents with progressive symptoms of fatigue, malaise, and a recent heart failure exacerbation at [facility] for hypertensive emergency and acute flash [...] Cigarettes Smokeless Tobacco Never Allergies: Prednisone and Bulnkkc-rdx-njg reductase inhibitors All of the information has [...] 50%, rest LVEF 51%. Echocardiogram reviewed from [facility], 10/11/2023 moderately decreased ejection fraction estimated [...] history suggesting prior/existing ASCVD documented in this [id number] NoteGeneral Cardiology New Patient Clinic Consult [facility]ician Group, Heart & Vascular 10/18/2024 Woo Small MD [address] [facility], 3rd Floor Medical Office [facility] [address] Patient: Enoc Armando Date [...] follow-ups on file. Woo Small MD, [facility] Non-Invasive Cardiology [facility] Heart and Vascular Physician Group P:[phone] F:[phone] History of Present Illness: Enoc Armando is a 78 y.o. man with a past medical history of insulin-dependent diabetes for 30 years, history of tobacco use, recent COVID infection with systolic dysfunction ejection fraction ranging from 35 to 45% who presented initially to [facility]. He underwent stress testing which showed inferior wall abnormality as well as ejection fraction of 50%. I initially met with him back in January and he was doing quite well, however today he presents with progressive symptoms of fatigue, malaise, and a recent heart failure exacerbation at [facility] for hypertensive emergency and acute flash [...] Cigarettes Smokeless Tobacco Never Allergies: Prednisone and Fxbshjw-ctt-vkn reductase inhibitors All of the information has [...] capsule, Take 1 ( (more content not included)...[facility]12-06-2024 Telephone encounter Note* Telephone Encounter - Luisa Easley RN - 10/06/2024 2:45 PM EST Spoke with pt and reviewed Dr. Small's comments and suggestions. Pt was agreeable to starting Imdur 30mg daily and confirmed appt with Dr. Small on 10/18 at 1:20pm in the [place] location. Pt expressedappreciation and understanding. [id number] Telephone encounter Note* Telephone Encounter - Luisa [...] are involved abnormalities can be difficult to hand picker Would he be okay coming in [...] Woo Small MD We received everything from Pep on him-I know we were waiting on this to see about changing things up ----- Message ----- From: Ej Guidry MA Sent: 10/04/2024 2:01 PM EST To: Luisa Easley RN Records from [facility] [id number] Miscellaneous Notes* Telephone Encounter - Luisa Easley RN - 10/06/2024 2:45 PM EST Spoke with pt and reviewed Dr. Small's comments and suggestions. Pt was agreeable to starting Imdur 30mg daily and confirmed appt with Dr. Small on 10/18 at 1:20pm in the [place] location. Pt expressedappreciation and understanding. * Telephone [...] are involved abnormalities can be difficult to hand picker Would he be okay coming in [...] EST To: Luisa Easley RN Records from [facility] documented in this [id number] [facility] 09-12-2024 [facility]10-29-2024 History of Present illness Narrative* Ayanna Albert [...] DO 08/29/24 1:12 PM documented in this [facility] Work Phone: 1(243) 795-675009-20-2024 NotePatient ID: Enoc Armando is a 78 [...] High flow O2, C-pap, etc. Hospitalized in [facility] with CHF, pleural effusions and elevated troponin. [...] being taken. Patient does not see a metal sander. Eye exam is current. Currently taking: No [...] by mouth daily . OXYGEN-AIR DELIVERY SYSTEMS [facility], Inhale 2 L/min See Admin Instructions . [...] Neurological: Mental Status: He (more content not included)...[facility]09-20-2024 History of Present illness Narrative* Paty Ortega, FLOOR ASSEMBLER - 07/21/2024 1:58 PM EDT Images from [...] High flow O2, C-pap, etc. Hospitalized in [facility] with CHF, pleural effusions and elevated troponin. [...] being taken. Patient does not see a metal sander. Eye exam is current. Currently taking: No [...] by mouth daily . OXYGEN-AIR DELIVERY SYSTEMS [facility], Inhale 2 L/min See Admin Instructions . [...] if BG <150 at HS. 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 Had bilat cataract extraction Dr. Lopez. Sees Dr. Browne in [place] every year routinely.Has blurred vision with low [...] Call if BG consistently <70 or >250. [phone] Continue to check blood sugar 3 times [...] CNP 07/21/24 1:21 PM documented in this [id number] Instructions* Patient Instructions* Luisa Easley RN - 04/24/2024 10:08 AM EDT How to Contact your Care Team: Provider: Dr. Woo Small MD Clinic Nurse: Luisa Easley RN Clinic MA: Ej Guidry MA REFILLS: When in need for refills please call your care team or the office at [phone]. Please include medication name, pharmacy name, and specify 30-day or 90-day supply. Please check with your pharmacy within 24 hours of request for your refill. You must follow up as directed to continue current refills. Thank you! documented in this [id number] History of Present illness Narrative* Woo Small MD - 04/24/2024 9:40 AM EDT General Cardiology New Patient Clinic Consult [facility] Physician Group, Heart & Vascular 04/24/2024 Woo Small MD [address] [place] [id number] Patient: Enoc Armando Date of : 1945 [...] year (around 04/24/2025). Woo Small MD, [facility] Non-Invasive Cardiology [facility] Heart and Vascular Physician Group P:[phone] F:[phone] History of Present Illness: Enoc Armando is a 78 y.o. man with a past medical history of insulin-dependent diabetes for 30 years, history of tobacco use, recent COVID infection with systolic dysfunction ejection fraction ranging from 35 to 45% who presented initially to [facility] care. He underwent stress testing which showedno [...] Cigarettes Smokeless Tobacco Never Allergies: Prednisone and Iqvmwyv-cld-rzc reductase inhibitors All of the information has [...] 90 tablet, Rfl: 3 OXYGEN-AIR DELIVERY SYSTEMS [facility], Inhale 2 L/min [...] 50%, rest LVEF 51%. Echocardiogram reviewed from [facility], 10/11/2023 moderately decreased ejection fraction estimated [...] BILITOT 0.7 11/27/2023 The ASCVD Risk score ([place] DK, et al., 2019) failed to calculate for the following reasons: The 2019 ASCVD risk score is only valid for ages 40 to 79 The patient has a prior WI or stroke diagnosis documented in this [id number] Telephone encounter Note* Telephone Encounter - Ej Guidry MA - 03/28/2024 1:53 PM EDT Pt was last seen on 01/14/24 by Aylin Lacy CNP. Refills appropriate. Routing to Dr. Garay as Dr. Small is out of the office. [id number] Miscellaneous Notes* Telephone Encounter - jE Guidry MA - 03/28/2024 1:53 PM EDT Pt was last seen on 01/14/24 by Aylin Lacy CNP. Refills appropriate. Routing to Dr. Garay as Dr. Small is out of the office. documented in this [id number] Evaluation + Plan note* Assessment & Plan Note - CULLEN Guzmán DNP - 02/24/2024 2:39 PM EDT Associated Problem(s): CKD (chronic kidney disease) Creatinine is stable at 1.92 and stable, stage IIIb, blood pressure is well controlled, diabetes well controlled, not using NSAIDs. [facility] Work Phone: 1(278) 420-818404-25-2024 Miscellaneous Notes* Assessment & Plan Note - [...] and metoprolol, no changes documented in this [facility] Work Phone: 1(807) 350-323804-25-2024 Evaluation + Plan note* Assessment & Plan Note - CULLEN Guzmán DNP - 02/24/2024 2:38 PM EDTAssociated Problem(s): Type 1 diabetes mellitus with diabetic neuropathy (Multi) Follows with endocrinology, is not to use SGLT2 due to Type I diabetes [facility] Work Phone: 1(254) 489-870004-25-2024 Evaluation + Plan note* Assessment & Plan Note - CULLEN Guzmán DNP - 02/24/2024 2:38 PM EDTAssociated Problem(s): Essential hypertension BP is well controlled on lisinopril and metoprolol, no changes [facility] Work Phone: 1(805) 525-861004-25-2024 History of Present illness Narrative* CULLEN Guzmán [...] DNP 02/24/24 1:50 PM documented in this [facility] Work Phone: 1(383) 247-849404-19-2024 History of Present illness Narrative* Paty Ortega [...] High flow O2, C-pap, etc. Hospitalized in [facility] with CHF, pleural effusions and elevated troponin. [...] being taken. Patient does not see a metal sander. Eye exam is current. Currently taking: No [...] if BG <150 at HS. 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 Had bilat cataract extraction Dr. Lopez. Sees Dr. Browne in [place] every year routinely.Has blurred vision with low [...] Call if BG consistently <70 or >250. [phone] Continue to check blood sugar 3 times [...] CNP 02/18/24 1:21 PM documented in this [id number] Instructions* Patient Instructions* Robert Dominguez RN - 01/14/2024 11:46 AM EDT How to Contact your Care Team: Provider: Dr. Woo Small MD Clinic Nurse: Luisa Easley RN REFILLS: When in need for refills please call your care team or the office at [phone]. Please include medication name, pharmacy name, and specify 30-day or 90-day supply. Please check with your pharmacy within 24 hours of request for your refill. You must follow up as directed to continue current refills. Thank you! documented in this [id number] History of Present illness Narrative* Aylin Lacy CNP - 01/14/2024 11:00 AM EDT General Cardiology Returning Patient Clinic Visit [facility] Physician Group, Heart & Vascular 01/14/2024 Aylin Lacy CNP [address] [facility] Medical Office [facility] [address] Patient: Enoc Armando Date of : 1945 (78 y.o.) Community Development Specialist: Dr. Small PCP: Ryley Jeter MD Chief Complaint: Transitional care appointment Date of Service: 01/14/2024 Assessment and Plan: Systolic dysfunction with recovery of ejection fraction -Euvolemic on exam -Continue lisinopril 5 mg daily -Continue metoprolol succinate 25 mg daily -Continue Lasix 20 mg twice daily -He is following with nephrology in [place]. He has an upcoming appointment and labs [...] Next scheduled follow up. Aylin Lacy, MSN, JIG INSPECTOR, MOHS SURGEON/GENERAL DERMATOLOGIST-C, METALS SALES REPRESENTATIVE, ECG- General Cardiology [facility] History of Present Illness: Enoc Armando is a 78 y.o. man with a past medical history of hypertension, hyperlipidemia, insulin-dependent diabetes mellitus, CKD, smoker, emphysema, chronic hypoxemia and systolic dysfunction. He presents today for transitional care appointment. He was last seen in our office on 10/21/2023 by his primary comfort station supervisor Dr. Small. Recent COVID infection at the end of last year and patient was notedto have systolic dysfunction with a ejection fraction ranging from 35 to 45%. He had left ventricular recovery noted on most recent echocardiogram from 11/30/2023, LVEF 63%. He presented to the [facility] on 11/27/2023 with complaints of respiratory [...] 25.50 Types: Cigarettes Smokeless Tobacco Never Allergies: Rsxogmr-iwh-wwh reductase inhibitors All of the above information [...] to 77 The patient has a prior WI or stroke diagnosis documented in this [id number] Telephone encounter Note* Telephone Encounter - Ej [...] to Dr. Small for her to sign. [id number] Miscellaneous Notes* Telephone Encounter - Ej Guidry [...] for her to sign. documented in this [id number] Miscellaneous Notes* Quick Note - Ellie Aguilar CNP - 12/01/2023 11:20 AM EST [facility] ENCOUNTER FOR HOME MEDICAL EQUIPMENT PATIENT: Enoc Armando : 1945 Statement of Care: I certify that Enoc Armando is under my care and that I, a Nurse Practitioner, Physician's Websphere Commerce Developer, or Resident working with me, had a whje-nv-klsx encounter with this patient yesterday to evaluate and discuss the need for home medical equipment. I certify that based on the findings of this evaluation, which included but was not limited to the hryn-jd-redo requirements, the following home medical equipment is [...] no longer in ICU bed. On 2lpm MS. Critical care will sign off. * CDI Query - Cintia Benitez MD - 11/29/2023 6:23 AM EST Query 2 of 2 Noted 11/27 [facility] PMHx documentation of CKD Clinical Indicators: Test [...] ESRD Thank you, Aubree CRAWFORD,RN Clinical Documentation dependency case manager After business hours you may contact Ebony Dayana at [phone] (Weekdays until 10 PM and weekends 8 AM -10 PM) * CDI Query - Cintai Benitez MD - 11/29/2023 6:14 AM EST Noted 11/27 [facility] documentation of heart failure. Clinical Indicators: 11/27 [facility]: CHF....-Continue IV Lasix, check I's and [...] crackles at base Test results: 11/27: BNP: 75120 Please specify the acuity and type of heart failure in the progress notes. For Example: Acute on chronic systolic CHF POA Chronic systolic CHF, no acute exacerbation Other (please specify) Thank you, Aubree CRAWFORD,RN Clinical Documentation Case Preparer And Liner After business hours you may contact Ebony Link at [phone] (Weekdays until 10 PM and weekends 8 [...] currently. Priscilla Aranda RDN, LD Dietitian's Office [phone] * Quick Note - Carlita Lazaro RRT [...] - Brief Progress Note PERMANENT 11/27/2023 04:43 [facility] CCU ENOC ARMANDO Date of Service 11/27/2023 [...] adjustment * Quick Note - Carlita Lazaro, SAUSAGE CUTTER - 11/27/2023 4:20 AM EST Called by RN due to patient SpO2 87% on 2L. RN states she increased to 4L and patient was 90%. Wentto patient room and patient was diaphoretic and with increased WOB with RR at 37. Patient placed onbipap and Norma Geiger SCIENCE ANALYST notified. Patient was then transferred to MICU [...] came to room and replaced on bipap. SCIENCE ANALYST came to see patient and request patient [...] Informed RT that patient has arrived from [facility]. Attempt to let dr Pereira aware of arrival from [facility] no answer will leave message. documented in this [id number] Hospital course Narrative* Ellie Aguilar CNP - 12/01/2023 11:03 AM EST [facility] SUMMARY -- [facility] Enoc Armando Admitted: 11/27/2023 Discharge Date: 12/01/23 PCP Handoff Recommended Outpatient Testing None Results Pending At Discharge None Clinical Summary Enoc Armando is a 77 y.o. male patient of Ryley Jeter MD with history of HTN, HLD, DM Type I, CKD, COPD, chronic hypoxemic respiratory failure who presented to [facility] with respiratory distress . Severe Sepsis [...] Up: Ryley Jeter MD [address] [facility] [id number] Follow up Please call to schedule a [...] on 12/01/23, 11:10 AM documented in this [id number] History of Present illness Narrative* Jody Hammonds, ONLINE MEDIA DIRECTOR - 12/01/2023 10:20 AM EST Physical Therapy [...] Static: Supervision, without UE support, with device Animal Care Giver - Standing Static: wheeled walker Loss of Balance- Standing Static: (none) Standing Balance - Dynamic: Stand by assist Animal Care Giver - Standing Dynamic: wheeled walker Loss of Balance- Standing Dynamic: (none) Bed Mobility Supine to Sit: Contact guard assist, Head of bed elevated Animal Care Giver: (none) Skilled Intervention Provided: verbal cues, monitoring patient response with activity, environmental setup/modification, facilitation, provided step by step instructions For: efficient movement, safety during functional tasks, sequencing of movement Resulting in: improved activity tolerance, improved functional independence, improved performance, improved safety, increased upright tolerance for functional tasks Transfers Sit to Stand: Stand by assist Animal Care Giver: BUE, wheeled walker Additional Transfer Trial 2: Yes Sit to Stand Trial 2: Stand by assist Animal Care Giver Trial 2: wheeled walker, BUE Skilled Intervention [...] O2;) Prior Level of Function Level of [place] - Transfers/Ambulation/Mobility: Independent with functional transfers, Independent with household ambulation, Independent with community ambulation (no AD for in home ambulation, intermitant use of cane in community for longer distances) Level of [place] - ADLs: Independent Level of [place] - Homemaking: ( takes care of all [...] Enoc Armando Admit Date: 11/27/2023 MR #: [id number] : 1945 Current location: [facility] Physicians: Ryley Jeter MD (Family); Britton Geiger [...] NST in a week, spoke with his comfort station supervisor Dr. Small, who will arrange to have [...] CHF, hypertension, hyperlipidemia, emphysema who presented to [facility] emergency department with a complaint of shortness [...] T CO2 17. He was transferred to [facility] for further evaluation and treatment. [...] platelet count 220,000 Allergies: Allergies Allergen Reactions Tydwhml-Uld-Ifq Reductase Inhibitors Muscle cramps Home Medications: Outpatient [...] Enoc Armando Admit Date: 1261205 MR #: [id number] : 1945 Physicians: Ryley Jeter MD (Family); Ger Bansal DO (Referring) Assessment: Patient with 1. Respiratory failure 2. Suspicion for pneumonia 3. Possible congestive heart failure 4. Non-ST elevation WI. 5. History of COVID-19 infection. Plan: Continue patient on current therapy Continue patient on IV azithromycin Continue on ceftriaxone From [facility] 5 weeks ago patient was [...] the patient is stable. Previous x-ray at [facility] had shown congestive changes and edema [...] 97.9 F (36.6 C) SpO2: 94% Allergies: Bsgizgb-uzc-nee reductase inhibitors Medications Reviewed. Current Facility-Administered Medications: [...] injection 20 mg, 20 mg, Intravenous, Q12H [facility], Iraida Alvarado, TRISTAN, 20 mg at [...] excoriations Musculoskeletal: No joint swelling, non tender FLOATING OPERATOR: Awake, and Ox3 Wound: No Osborne Catheter: [...] Aguilar CNP - 11/30/2023 9:26 AM EST [facility] Assessment and Plan Enoc Armando is a 77 y.o. male patient of Ryley Jeter MD with history of HTN, HLD, DM Type I, CKD, COPD, chronic hypoxemic respiratory failure who presented to [facility] with respiratory distress . Severe Sepsis [...] treatment for pneumonia and CHF Discharge Location: [facility] Quality Measures DVT Prophylaxis:scd Osborne Catheter: present [...] Enoc Armando Admit Date: 1261205 MR #: [id number] : 1945 Physicians: Ryley Jeter MD (Family); Ger Bansal DO (Referring) Assessment: Patient with 1. Respiratory failure 2. Suspicion for pneumonia 3. Possible congestive heart failure 4. Non-ST elevation WI. 5. History of COVID-19 infection. Plan: Continue patient on current therapy Continue patient on IV azithromycin Continue on ceftriaxone From [facility] 5 weeks ago patient was [...] the patient is stable. Previous x-ray at [facility] had shown congestive changes and edema [...] 97.7 F (36.5 C) SpO2: 97% Allergies: Pamscfe-awp-nat reductase inhibitors Medications Reviewed. Current Facility-Administered Medications: [...] excoriations Musculoskeletal: No joint swelling, non tender FLOATING OPERATOR: Awake, and Ox3 Wound: No Osborne Catheter: [...] Enoc Armando Admit Date: 11/27/2023 MR #: [id number] : 1945 Current location: [facility] Physicians: Ryley Jeter MD (Family); Britton Geiger [...] CHF, hypertension, hyperlipidemia, emphysema who presented to [facility] emergency department with a complaint of shortness [...] T CO2 17. He was transferred to [facility] for further evaluation and treatment. [...] platelet count 220,000 Allergies: Allergies Allergen Reactions Mpsqdqp-Wzh-Owt Reductase Inhibitors Muscle cramps Home Medications: Outpatient [...] Enoc Armando Admit Date: 1261205 MR #: [id number] : 1945 Physicians: Ryley Jeter MD (Family); Ger Bansal DO (Referring) Assessment: Patient with 1. Respiratory failure 2. Suspicion for pneumonia 3. Possible congestive heart failure 4. Non-ST elevation WI. 5. History of COVID-19 infection. Plan: Continue patient on current therapy Continue patient on IV azithromycin Continue on ceftriaxone From [facility] 5 weeks ago patient was [...] the patient is stable. Previous x-ray at [facility] had shown congestive changes and edema [...] 97.9 F (36.6 C) SpO2: 97% Allergies: Jurlqvo-rjv-edi reductase inhibitors Medications Reviewed. Current Facility-Administered Medications: [...] excoriations Musculoskeletal: No joint swelling, non tender FLOATING OPERATOR: Awake, and Ox3 Wound: No Osborne Catheter: None IV Access: yes I reviewed Medications. I reviewed Labs. XR Chest 1 View Final Result Bilateral infrahilar patchy opacities, concerning for pneumonia. [employer] Workstation ID: [id number] Echocardiogram complete (Results Pending) [...] Benitez MD - 11/29/2023 1:37 PM EST [facility] Assessment and Plan Enoc Armando is a 77 y.o. male patient of Ryley Jeter MD with history of HTN, HLD, DM Type I, CKD, COPD, chronic hypoxemic respiratory failure who presented to [facility] with respiratory distress . Severe Sepsis [...] Enoc Armando Admit Date: 11/27/2023 MR #: [id number] : 1945 Current location: [facility] Physicians: Ryley Jeter MD (Family); Britton Geiger [...] CHF, hypertension, hyperlipidemia, emphysema who presented to [facility] emergency department with a complaint of shortness [...] T CO2 17. He was transferred to [facility] for further evaluation and treatment. [...] platelet count 220,000 Allergies: Allergies Allergen Reactions Naeupok-Uxn-Xyg Reductase Inhibitors Muscle cramps Home Medications: Outpatient [...] sodium chloride (PF) 5 mL Intravenous Q8H [facility] acetaminophen, dextrose, heparin, ipratropium-albuteroL, [COMPLETED] Insert [...] General Cardiology Inpatient Follow-up Heart & Vascular [facility] Physician Group 11/28/2023 Iraida Alvarado CNP [facility] Patient: Enoc Armando Date of : [...] - EKG showed SR suggest previous anterior WI, minor ST depression laterally similar to 10/11/2023 [...] is orient x 3. Telemetry: SR Allergies: Lafqmor-mdy-rum reductase inhibitors Review of Systems: The following [...] in Direct Patient Care: 15 Narrative: This manager ambulatory visited the pt., Enoc, while rounding. Introduced [...] of his children and grandchildren. 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 This manager ambulatory helped the pt explore their feelings about their hospitalization and identify sources of support. This manager ambulatory provided information about Pastoral Care services and how to contact a manager ambulatory. Pastoral Care team will remain available to support patient and family PRN. 11/28/23 1116 Visit Background Visit With Patient Visit By Staff Saddle Mechanic Visit Progression Introduction Visit Requested By Saddle Mechanic Initiated Visit Source Saddle Mechanic Initiated Visit Type Inpatient;Rounding Visit Circumstances and Events Routine Visit Visit Length (minutes) 15 Patient's Response to Pastoral Care Appeared to be well-engaged;Expressed Gratitude for Visit Visit Planning PRN;Pt aware to contact Saddle Mechanic as needed Spiritual Assessment Assessed during this visit Druze Assessment Not assessed during this visit Family [...] Facilitated Interventions Active Listening;Explained Role of the Saddle Mechanic;Explored thoughts/feelings associated with current hospitalization;Relationships Spiritual/Emotional Outcomes Appreciative;Gratitude Spiritual Plan of Care Continue Healing Process;Receive Spiritual Support Signature: Bipin Claros MDiv Staff Saddle Mechanic [facility] 24hr On-Call /Adriana On-Call Saddle Mechanic She/Her/Hers * Cintia Benitez MD - 11/28/2023 10:49 AM EST [facility] Assessment and Plan Enoc Armando is a 77 y.o. male patient of Ryley Jeter MD with history of HTN, HLD, DM Type I, CKD, COPD, chronic hypoxemic respiratory failure who presented to [facility] with respiratory distress . Severe Sepsis [...] Enoc Armando Admit Date: 1261205 MR #: [id number] : 1945 Physicians: Ryley Jeter MD (Family); Ger Bansal DO (Referring) Assessment: Patient with 1. Respiratory failure 2. Suspicion for pneumonia 3. Possible congestive heart failure 4. Non-ST elevation WI. 5. History of COVID-19 infection. Plan: Continue patient on current therapy Continue patient on IV azithromycin Continue on ceftriaxone From [facility] 5 weeks ago patient was [...] the patient is stable. Previous x-ray at [facility] had shown congestive changes and edema [...] 97.7 F (36.5 C) SpO2: 97% Allergies: Grhdsmf-zjp-orj reductase inhibitors Medications Reviewed. Current Facility-Administered Medications: [...] excoriations Musculoskeletal: No joint swelling, non tender FLOATING OPERATOR: Awake, and Ox3 Wound: No Osborne Catheter: [...] Enoc Armando Date of : 1945 Site: [facility] Provider: Prashant Cesar MD ASSESSMENT/PLAN: Enoc Armando 77 y.o. male transferred last night for resp distress, NSTEMI, hypergllycemia from [facility] Three weeks ago testing positive for Covid and then diagnosed with pneumonia. He has been treated as an outpatient with oral antibiotics. He has been experiencing intermittent midsternal chest pain for the past 3 weeks On arrival to [facility], he was placed on NIPPV with [...] Azithromycin/Ceftriaxone Cardiovascular: Troponin 2361 BNP 16,730 Prior WI NSTEMI Cardiology consulted Heparin gtt Neuro/Muscular: Alert [...] injection 40 mg 40 mg Intravenous Q12H [facility] Norma Geiger CNP 40 mg at [...] 0-30 Units 0-30 Units Subcutaneous Before dinner aMry Vargas MD ipratropium-albuteroL (DUO-NEB) 0.5-2.5 mg/3 ml [...] Enoc Armando Admit Date: 11/27/2023 MR #: [id number] : 1945 Current location: [facility] Physicians: Ryley Jeter MD (Family); Britton Geiger [...] CHF, hypertension, hyperlipidemia, emphysema who presented to [facility] emergency department with a complaint of shortness [...] T CO2 17. He was transferred to [facility] for further evaluation and treatment. [...] platelet count 220,000 Allergies: Allergies Allergen Reactions Sauiuhi-Dax-Ssg Reductase Inhibitors Muscle cramps Home Medications: Outpatient [...] Oral Daily furosemide 20 mg Intravenous Q12H [facility] insulin glargine 14 Units Subcutaneous Nightly lispro insulin 0-15 Units Subcutaneous at bedtime insulin lispro 0-30 Units Subcutaneous QAM AC insulin lispro 0-30 Units Subcutaneous Daily before lunch insulin lispro 0-30 Units Subcutaneous Before dinner ipratropium-albuteroL 3 mL Inhalation Q4H [facility] metoprolol succinate 25 mg Oral Daily sodium chloride (PF) 5 mL Intravenous Q8H [facility] acetaminophen, dextrose, heparin, ipratropium-albuteroL, [COMPLETED] Insert [...] Enoc Armando Date of : 1945 Site: [facility] Provider: Prashant Cesar MD ASSESSMENT/PLAN: Enoc Armando 77 y.o. male transferred last night for resp distress, NSTEMI, hypergllycemia from [facility] Three weeks ago testing positive for Covid and then diagnosed with pneumonia. He has been treated as an outpatient with oral antibiotics. He has been experiencing intermittent midsternal chest pain for the past 3 weeks On arrival to [facility], he was placed on NIPPV with [...] 30% Cardiovascular: Troponin 2361 BNP 16,730 Prior WI NSTEMI Cardiology consulted Heparin gtt Neuro/Muscular: Alert [...] mL Intravenous Q8H DIDI Juanjo, Norma Marin, FLOOR ASSEMBLER 5 mL at 11/27/23 0515 And sodium chloride 0.9% (NS) 0-150 mL/hr Intravenous PRN Norma Geiger CNP [x] Medications reviewed. [x] Labs reviewed. Pertinent findings noted: [x] Radiology reviewed. Pertinent findings noted: [] Pathology reviewed. Pertinent findings noted: Family Update/ Code Status: Full code Laboratory and Additional Data Reviewed: Reviewed 11/27/23 8:35 AM: Laboratory and Microbiology documented in this [id number] Consult note* Domenica Torre RN - 11/30/2023 [...] Balance - Static: Supervision, without UE support Animal Care Giver - Standing Static: (no device) Standing Balance - Dynamic: Stand by assist, Contact guard assist (without device; sba/ supervisionwith rollator) Animal Care Giver - Standing Dynamic: (trialed with and without rollator) Loss of Balance- Standing Dynamic: (left path deviation unsteadiness without device; no LOB with use of rollator and gait steadiness much improved.) Bed Mobility Rolling: Modified independent, Head of bed flat Supine to Sit: Modified independent, Head of bed flat Sit to Supine: (NT: pt up in chair post PT session) Animal Care Giver: (none) Transfers Sit to Stand: Stand by assist Bed to Chair: Stand by assist, Contact guard assist (no device) Stand Pivot Transfers: Stand by assist, Contact guard assist (no device) Animal Care Giver: (no AD) Additional Transfer Trial 2: Yes Sit to Stand Trial 2: Stand by assist (from chair with karin ue support) Animal Care Giver Trial 2: BUE Additional Transfer Trial 3: Yes Sit to Stand Trial 3: Stand by assist (from locked rollator seat) Animal Care Giver Trial 3: (locked rollator handles) Gait/Locomotion Gait [...] O2;) Prior Level of Function Level of [place] - Transfers/Ambulation/Mobility: Independent with functional transfers, Independent with household ambulation, Independent with community ambulation (no AD for in home ambulation, intermitant use of cane in community for longer distances) Level of [place] - ADLs: Independent Level of [place] - Homemaking: ( takes care of all [...] at discharge. Pt declined PT services at [facility]. Pt up in chair post PT session. [...] Oral Daily furosemide 20 mg Intravenous Q12H [facility] insulin glargine 16 Units Subcutaneous Nightly [...] Estimated Energy Needs Total Energy Estimated Needs: 6844-4219 kcal/d Method for Estimating Needs: 25-30 kcal/kg current wt Total Protein Estimated Needs: 65 g/d Method for Estimating Needs: 1 g/kg current wt Grazyna Obregon RDN, LD, CLC Office * Chaya Mayfield RN - 11/29/2023 9:30 AM ESTAssociated Order(s): IP CONSULT TO WATER TAXI DRIVER Met with pt for diabetes education. States [...] 4:07 PM ESTAssociated Order(s): IP CONSULT TO SURVEY OPERATIONS DIRECTOR See earlier consult * Gaudencio Pabon MD - 11/27/2023 2:50 PM EST Patient Name: Enoc Armando MR #: [id number] : 1945 Physicians: Ryley Jeter MD (Family); [...] COVID-19 infection, and then was admitted in [facility]. At that time he was having respiratory failure, and also was having bilateral infiltrates and was found with echocardiogram with ejection fraction of 35%. At [facility], patient was treated with BiPAP, [...] failure, [place] [address], And troponin of 9000. Patient also had [...] Information: I have reviewed the patient's allergies. Lqrpwel-cfm-rft reductase inhibitors Review of Systems: Review of [...] Bilateral infrahilar patchy opacities, concerning for pneumonia. [employer] Workstation ID: [id number] Echocardiogram complete (Results Pending) [...] Possible congestive heart failure 4. Non-ST elevation WI. 5. History of COVID-19 infection. Plan. Continue patient on current therapy Patient currently on IV azithromycin Patient on ceftriaxone From [facility] 5 weeks ago patient was [...] the patient is stable. Previous x-ray at [facility] had shown congestive changes and edema [...] CONSULT TO ENDOCRINOLOGY Patient ID: Patient Name: nEoc Armando Admit Date: 11/27/2023 MR #: [id number] : 1945 Current location: [facility] Physicians: Ryley Jeter MD (Family); Britton Geiger [...] CHF, hypertension, hyperlipidemia, emphysema who presented to [facility] emergency department with a complaint of shortness [...] T CO2 17. He was transferred to [facility] for further evaluation and treatment. [...] platelet count 220,000 Allergies: Allergies Allergen Reactions Ryoxzab-Azz-Koy Reductase Inhibitors Muscle cramps Home Medications: Outpatient [...] Q12H DIDI ipratropium-albuteroL 3 mL Inhalation Q4H [facility] metoprolol succinate 25 mg Oral Daily [...] patient with you. Mary Vargas MD * [place], Julia Barry MD - 11/27/2023 6:35 AM ESTAssociated Order(s): IP CONSULT TO CARDIOLOGY INPATIENT CONSULT NOTE 11/27/2023 ASSESSMENT/PLAN NSTEMI, type II White count 20,000, troponin 9973, 9973; lactic acid elevated EKG personally reviewed showed sinus rhythm suggest previous anterior WI minor ST depression laterally similar to 10/11/2023 [...] testing positive initially he was hospitalized at [facility] on BiPAP. Communication is a bit [...] Information: I have reviewed the patient's allergies. Ywxhkvg-vxr-nlk reductase inhibitors Home Medications: Outpatient Medications as [...] Enoc Armando Admit Date: 1261205 MR #: [id number] : 1945 Physicians: Ryley Jeter MD (Family); Ger Bansal DO (Referring) Julia Parker MD documented in this [id number] History and physical note* Norma Geiger CNP - 11/27/2023 3:12 AM EST [facility] -- [facility] Patient Name: Enoc Armando : 1945 MR #: [id number] Admit Date: 11/27/2023 Physicians: Ryley Jeter MD (Family); Ger Bansal DO (Referring) Enoc Armando is a 77 y.o. male patient of Ryley Jeter MD with history of HTN, HLD, DM Type I, CKD, COPD, chronic hypoxemic respiratory failure who presented to [facility] with respiratory distress . Severe Sepsis [...] DKA protocol. Consult endocrinology, DM education, and industrial renderer Essential Hypertension Dyslipidemia Continue amlodipine, metoprolol, ezetimibe [...] of Ryley Jeter MD, who presented to [facility] with respiratory distress. The patient states [...] discomfort with associated diaphoresis. On arrival to [facility], he was placed on NIPPV with [...] Information I have reviewed the patient's allergies. Aoupdkd-qvn-koo reductase inhibitors Home Medications Home medications were [...] chronic hypoxemic respiratory failure who presented to [facility] with respiratory distress . Physical Examination [...] COVID -Appreciate ID input documented in this [id number] Emergency department Note* Ger Bansal, DO - [...] to experience difficulty breathing for 1 hr tours captain. EMS reports an O2 level in [...] ask the patient if he had a comfort station supervisor and he said yes. Patient sees Dr. Small at [place] and is scheduled to have a stress test next week. Patient has denied any chest pain his entire time here. I did speak to the comfort station supervisor on-call Dr. Parker and she agreed with a dose of IV Lasix and starting the patient on heparin which will be done. Patient is improved at present but we will continue to monitor the patient until a bed becomes available at [place]. The patient has been accepted by the [...] History Past Medical History: Diagnosis Date Diabetes (CMS/[facility]) History reviewed. No pertinent surgical history. [...] at [facility] than at other [facility]. Direct result comparisons should only be made [...] at [facility] than at other [facility]. Direct result comparisons should only be made [...] at [facility] than at other [facility]. Direct result comparisons should only be made [...] TROPONIN I, HIGH SENSITIVITY ED Course & [facility] ED Course as of 11/27/23105Nov 26, 2023 2142 Twelve-lead EKG interpreted by myself at 2120 1 sinus tachycardia at 113 2 left axis deviation3 nonspecific ST-T wave changes [MS] 2249 Troponin I, High Sensitivity(!!): 3,473 [MS] ED Course User Index [MS] Ger Bansal DO Diagnoses as of 11/27/23105 NSTEMI (non-ST elevated myocardial infarction) ([facility]/HCC) MADONNA (acute kidney injury) (CMS/HCC) Acute combined [...] Ghassan Tovar 11/26/2023 10:02 PM Dictation workstation: [id number] Medical Decision Making Patient will be transferred in stable condition to [facility] in [place]. Procedure Critical Care Performed by: Ger Bansal [...] Bansal DO 11/27/23 0119 documented in this [facility] Work Phone: 1(957) 229-979701-26-2024 Physician Emergency department Note* Ger Bansal, - [...] to experience difficulty breathing for 1 hr tours captain. EMS reports an O2 level in [...] ask the patient if he had a comfort station supervisor and he said yes. Patient sees Dr. Small at [place] and is scheduled to have a stress test next week. Patient has denied any chest pain his entire time here. I did speak to the comfort station supervisor on-call Dr. Parker and she agreed with a dose of IV Lasix and starting the patient on heparin which will be done. Patient is improved at present but we will continue to monitor the patient until a bed becomes available at [place]. The patient has been accepted by the [...] History Past Medical History: Diagnosis Date Diabetes ([facility]) History reviewed. No pertinent surgical history. [...] at [facility] than at other [facility]. Direct result comparisons should only be made [...] at [facility] than at other [facility]. Direct result comparisons should only be [...] at [facility] than at other [facility]. Direct result comparisons should only be made [...] 01/27/24 0106 NSTEMI (non-ST elevated myocardial infarction) ([facility]) MADONNA (acute kidney injury) ([facility]) Acute combined systolic and diastolic congestive heart failure ([facility]) Type 1 diabetes mellitus with other specified complication ([facility]) XR chest 1 view Final Result Pulmonary vascular congestive change and edema and small bilateral pleural effusions. There is asymmetric opacity in the right lower lung concerning for superimposed pneumonia. 10 mm nodular opacity at the left lung base; follow-up dedicated CT chest is recommended to exclude underlying pulmonary nodule. MACRO: None Signed by: Ghassan Tovar 11/26/2023 10:02 PM Dictation workstation: [id number] Medical Decision Making Patient will be transferred in stable condition to [facility] in [place]. Procedure Critical Care Performed by: Ger Bansal [...] another facility Ger Bansal DO 11/27/23 0119 [facility] Work Phone: 1(322) 321-313801-02-2024 History of Present illness Narrative* Mary Vargas MD - 11/02/2023 4:50 PM EST Patient called and reported that he needs Humalog Rx changed due to formulary change. Rx mailed forAdmelog Solostar 15 ml, 11 refills. CD documented in this [id number] History of Present illness Narrative* Woo Small MD - 10/21/2023 9:00 AM EST General Cardiology New Patient Clinic Consult [facility] 10/21/2023 Woo Small MD [address] [place] [address] Medical [place] [phone] Patient: Enoc Armando Date of : 1945 [...] months (around 04/21/2024). Woo Small MD, [facility] Non-Invasive Cardiology [facility] P:[phone] F:[phone] History of Present Illness: Enoc Armando is a 77 y.o. man with a past medical history of insulin-dependent diabetes for 30 years, history of tobacco use, recent COVID infection with systolic dysfunction ejection fraction ranging from 35 to 45% who presents today to establish care. Patient states that he was critically ill andhospitalized at [facility], on BiPAP. Prior to hospitalization patient [...] 25.50 Types: Cigarettes Smokeless Tobacco Never Allergies: Vjlkssa-ixy-cmv reductase inhibitors All of the information has [...] ., Disp: , Rfl: OXYGEN-AIR DELIVERY SYSTEMS [facility], Inhale 2 L/min [...] appropriate conversation Cardiovascular Studies: Echocardiogram reviewed from [facility], 10/11/2023 moderately decreased ejection fraction estimated [...] Total Cholesterol: 156 mg/dL documented in this [id number] Instructions* Patient Instructions* Luisa Easley RN - 10/21/2023 8:54 AM EST How to Contact your Care Team: Provider: Dr. Woo Small MD Clinic Nurse: Luisa Easley RN REFILLS: When in need for refills please call your care team or the office at [phone]. Please include medication name, pharmacy name, and [...] questions please contact your care team or [phone]. documented in this [id number] Nurse Note* Moody Gorman RN - 10/13/2023 7:25 PM EST Pt IVs removed intact, home O2 has just been delivered and family given instruction by [employer]. Pt leaving by wheelchair to discharge doors, daughter driving. [facility]2023 Nurse Note* Moody Gorman RN - [...] - 10/11/2023 10:00 AM EST , Alice ([phone]), called and requesting and update. Update provided. [...] HR 112, RR 24. documented in this [facility] Work Phone: 1(699) 597-169012-13-2023 Nurse Note* Geni Lynne RN - 10/13/2023 3:56 PM EST Discharge instructions reviewed with pt. Printed and verbal education given on covid, chf, and homeoxygen use/safety. Pt verbalized understanding of all instructions. Walker rx written by dr rivera. Awaiting home oxygen set up. [facility]2023 Hospital Discharge instructions* Discharge Instr - [...] or approved for treating a specific patient. [employer]. and its affiliatesdisclaim any warranty or liability relating to this information or the use thereof. The use of thisinformation is governed by the Terms of Use, available at https://www.CriteoIntelligentMDxuwer.com/en/know/fjhciunc-gbtgldocupzqn-imhjd Copyright 2022 [employer]. and its affiliates and/or licensors. All rights [...] by the Terms of Use, available at https://www.Ramen.com/en/know/wpfnthzd-cfokvhquepcya-uiztp Copyright 2022 [employer]. and its affiliates and/or licensors. All rights [...] Do not take any other prescription drugs, lljg-drq-xpmijfu (OTC) drugs, herbals, or diet aids without [...] diet are needed? Ask your doctor or industrial renderer what diet is best for you. The [...] or approved for treating a specific patient. [employer] and its affiliatesdisclaim any warranty or liability relating to this information or the use thereof. The use of thisinformation is governed by the Terms of Use, available at https://www.Ramen.com/en/know/aikhtwvk-ztpuuzujuwaan-lvqjn Copyright 2022 [employer]. and its affiliates and/or licensors. All rights reserved. documented in this [facility] Work Phone: [phone]) 817-635712-13-2023 Miscellaneous Notes* Documentation Clarification Note - Vera Mari MD - 10/13/2023 3:06 PM EST PATIENT: ENOC ARMANDO : 1945 ADMIT DATE: 10/11/2023 1:08 AM DISCH DATE: RESPONDING PROVIDER #: [id number] PROVIDER RESPONSE TEXT: Sepsis with associated respiratory [...] hypoxia], hypertensive emergency, hyperglycemia, and elevated troponin. Aperture Mask Etcher consult documents Acute hypoxemic respiratory failure. Treatment: [...] Continue with current management. documented in this [facility] Work Phone: 1(165) 574-403212-13-2023 Note* Documentation Clarification Note - Vera Mari MD - 10/13/2023 3:06 PM EST PATIENT: ENOC ARMANDO : 1945 ADMIT DATE: 10/11/2023 1:08 AM DISCH DATE: RESPONDING PROVIDER #: [id number] PROVIDER RESPONSE TEXT: Sepsis with associated respiratory [...] hypoxia], hypertensive emergency, hyperglycemia, and elevated troponin. Aperture Mask Etcher consult documents Acute hypoxemic respiratory failure. Treatment: [...] by: VERA RIVERA MD 10/13/2023 3:05 PM [facility] Work Phone: [phone]) 176-985812-13-2023 History of Present illness Narrative* JENNIFER Almanza [...] Prior Function Per Pt/Caregiver Report Level of [place]: Independent with ADLs and functional transfers, Independent [...] Comments/Distance (ft) 1: 88ft Outcome Measures: [facility] Basic Mobility Turning from your back to [...] Bathroom Equipment: None Prior Function: Level of [place]: Independent with ADLs and functional transfers, Independent [...] Gross Grasp: Functional Coordination: Functional Outcome Measures:[facility] Daily Activity Putting on and taking off [...] 10/13/23 Expected End: 10/27/23 * Phylicia Reyes, JIG INSPECTOR-FLOOR ASSEMBLER, DNP - 10/13/2023 10:18 AM EST Subjective Data: Patient examined and denies any chest pain/pressure/discomfort, palpitations, worsening SOB, dizziness, or lower extremity edema. He does not currently follow with a Community Development Specialist. Overnight Events: None Objective Data: Last Recorded [...] result verified on 10/11/2023 0209 on specimen/case [id number] called with component [facility] for procedure Troponin I, High [...] 13-18 <7.5 7-12 <8.0 0- 6 7.5-8.5 [place]. Diabetes Care 33(S1), Nov 2009. 02/12/2023 08:57 AM 7.7 % Final Comment: Diagnosis of Diabetes-Adults Non-Diabetic: < or = 5.6% Increased risk for developing diabetes: 5.7-6.4% Diagnostic of diabetes: > or = 6.5% . Monitoring of Diabetes Age (y) Therapeutic Goal (%) Adults: >18 <7.0 Pediatrics: 13-18 <7.5 7-12 <8.0 0- 6 7.5-8.5 [place] [employer]. Diabetes Care 33(S1), Nov 2009. [...] Assessment Information (1): baseline creat 1.6-1.9 per medical fee clerk; A1C 7.4 09/27, 7.6 8/l Nutrition Diagnosis [...] result verified on 10/11/2023 0209 on specimen/case [id number] called with component [facility] for procedure Troponin I, High [...] 13-18 <7.5 7-12 <8.0 0- 6 7.5-8.5 [employer]. Diabetes Care 33(S1), Nov 2009. 02/12/2023 08:57 AM 7.7 % Final Comment: Diagnosis of Diabetes-Adults Non-Diabetic: < or = 5.6% Increased risk for developing diabetes: 5.7-6.4% Diagnostic of diabetes: > or = 6.5% . Monitoring of Diabetes Age (y) Therapeutic Goal (%) Adults: >18 <7.0 Pediatrics: 13-18 <7.5 7-12 <8.0 0- 6 7.5-8.5 [employer] [employer]. Diabetes Care 33(S1), Nov 2009. [...] around 1.8,arthritis and smoking. Came to ED [facility] on 10/11/2023 complaining of shortness of [...] to discharge. If not possible, should have [facility] as an outpatient. - Due to [...] 10/11/2023 6:18:47 PM Transthoracic Echo (TTE) [place] [id number] [phone], TRANSTHORACIC ECHOCARDIOGRAM REPORT Patient Name: ENOC ARMANDO Reading Physician: [id number] Jose Enrique Molina MD Study Date: 10/11/2023 Ordering Provider: [id number] EVRA RIVERA MRN/PID: [id number] Fellow: Nurse: Jana See RN Date of /Age: 2 1945 / 77 years [employer] Lieutenant: Cecilio Gabriel RDCS Gender: M Additional Staff: Height: 170.18 cm Admit Date: Weight: 71.67 kg Admission Status: Inpatient - Routine BSA: 1.83 m2 Department Location: [address]-ICU Blood Pressure: 141 /71 mmHg Study Type: TRANSTHORACIC ECHO (TTE) COMPLETE Diagnosis/ICD: Acute on chronic systolic (congestive) heart failure (CHF)-I50.23 CPT Codes: Echo Complete w Full Doppler-64843 Study Detail: The following Echo studies were [...] LA Area A2C: 16.2 cm2 LA Major Stephenson A4C: 5.3 cm LA Major Stephenson A2C: 5.0 cm LA Volume Index: 23.9 ml/m2 LA Vol A4C: 43.7 ml LA Vol A2C: 43.3 ml LV SYSTOLIC FUNCTION BY 2D PLANIMETRY (MOD): Normal Ranges: EF-A4C View: 45.6 % (>=55%) EF-A2C View: 40.9 % EF-Biplane: 44.2 % AORTIC VALVE: Normal Ranges: LVOT Diameter: 1.80 cm (1.8-2.4cm) RIGHT VENTRICLE: RV Basal 3.49 cm RV Mid 2.45 cm RV Major 7.8 cm [id number] Jose Enrique Molina MD Electronically signed on 10/11/2023 at 9:43:19 AM Final XR chest 1 view Narrative: Interpreted By: Kahlil Fagan, STUDY: XR CHEST 1 VIEW; 10/11/2023 1:30 am INDICATION: Signs/Symptoms:Cough. COMPARISON: Chest radiograph 11/04/2012 ACCESSION NUMBER(S): [id number] ORDERING CLINICIAN: AURY ROUSE FINDINGS: SUPPORT DEVICES: [...] Kahlil Fagan 10/11/2023 1:33 AM Dictation workstation: [id number] Physical Exam Constitutional: Appearance: Normal appearance. HENT: [...] on sliding scale insulin. 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 Oxygen as tolerated, currently liters. PT, OT consult for generalized weakness. Vitamin D, zinc DVT prophylaxis on heparin. CODE STATUS full. Disposition in 24 to 48 hours. Total time spent 35 minutes. Vera Rivera MD * Consuelo Fischer RN - 10/11/2023 2:04 PM EST 10/11/23 7040 Discharge Planning Living Arrangements Spouse/significant other Support [...] No Patient Choice Provider Choice list and [facility] website (https://medicare.gov/care-compare#search) for post-acute Quality and Resource [...] needs at this time. CT to follow. Cnosuelo Fischer BSN/RN-TCC documented in this [facility] Work Phone: [phone]) 611-909212-13-2023 Hospital course Narrative* Vera Mari MD - [...] Your Medications These medications were sent to [facility] [address] [address] metoprolol succinate XL 25 mg 24 hr tablet These medications were sent to [facility] [address] [place] [id number] Hours: 8 AM to 5:30 Mon-Fri, 8 [...] up with home oxygen. 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 Clinically stable. Patient also had elevated troponin secondary due to above seen by cardiology, Dr. De Dios, started on metoprolol, aspirin initially which which can be changed to 81 mg daily. Jaundice and Zetia also were started. Patient also has seen Dr. Albert, medical fee clerk for acute on chronic kidney disease secondary [...] Department Center 02/24/2024 1:45 PM Maricruz Albert, JIG INSPECTOR-FLOOR ASSEMBLER, [facility] [id number] [facility] Dr. Albert, nephrology in [address] De Dios, cardiology in 2 to 4 weeks. Total discharge time 40 minutes. Vera Rivera MD [facility] this [facility] Work Phone: [phone] 760-175112-13-2023 Nurse Note* Moody Gorman RN - 10/13/2023 12:27 PM EST Pt is AAO. He is using his call light today when he wants to use the bathroom. He has had loose stools, but less frequent. [facility] Work Phone: [phone] 840-714712-12-2023 Nurse Note* Moody Gorman RN - 10/12/2023 5:25 PM EST Pt is alert to situation at this time and able to explain his diagnosis, but still impulsive when moving and unsteady. [facility] Work Phone: [phone] 930-609912-12-2023 Nurse Note* Moody Gorman RN - 10/12/2023 4:42 PM EST Pt continues to try and leave the bed and chair without his call light. When asked what he needs orwhere he wants to go, pt is unable to articulate his motivation except the general desire to move around. Repeated re-education is not working. [facility] Work Phone: [phone] Nurse Note* Moody Gorman RN - 10/12/2023 3:45 PM EST Answered chair alarm. Pt is becoming increasingly confused and restless in general. He is aware of himself and other people, but is becoming impulsive in getting out of bed or his chair. Pt ambulatedto the bathroom, O2 increased to 5L for movement per RT. Pt assisted back to bed, bed alarm activated. [facility] Work Phone: [phone] Nurse Note* Moody Gorman RN - 10/12/2023 8:00 AM EST Pt is AAO, uses his call light appropriately. Pt currently on RA. Pt c/o weakness in his legs, but is able to sit up at the edge of the bed and walk with a walker to lean on for stability. [facility] Work Phone: [phone] 115-742112-12-2023 Plan of care note* Care Plan - [...] to address these barriers include repeated re-orientation. [facility] Work Phone: [phone]) 563-636212-12-2023 Plan of care note* Care Plan - Jody Ball RN - 10/12/2023 5:59 AM EST The clinical goals for the shift include Blood sugar will return to normal limits by the end of theshift Over the shift, Pt tolerated BIPAP well. No signs of respiratory distress. [facility]12-11-2023 Consult note* Tyrone Zimmerman MD - [...] around 1.8,arthritis and smoking. Came to ED [facility] on 10/11/2023 complaining of shortness of [...] result verified on 10/11/2023 0209 on specimen/case [id number] called with component [facility] for procedure Troponin I, High [...] 13-18 <7.5 7-12 <8.0 0- 6 7.5-8.5 [employer]. Diabetes Care 33(S1), Nov 2009. 02/12/2023 08:57 AM 7.7 (A) % Final Comment: Diagnosis of Diabetes-Adults Non-Diabetic: < or = 5.6% Increased risk for developing diabetes: 5.7-6.4% Diagnostic of diabetes: > or = 6.5% . Monitoring of Diabetes Age (y) Therapeutic Goal (%) Adults: >18 <7.0 Pediatrics: 13-18 <7.5 7-12 <8.0 0- 6 7.5-8.5 [employer]. Diabetes Care 33(S1), Nov 2009. [...] Family history unknown: Yes Allergies: Prednisone and Nrtcosx-ebu-afa reductase inhibitors Inpatient Medications: Scheduled medications Medication [...] around 1.8,arthritis and smoking. Came to ED [facility] on 10/11/2023 complaining of shortness of [...] to discharge. If no t possible, have [facility] as an outpatient. - Due to [...] Code Status: Full Code Tyrone Zimmerman MD [facility] Work Phone: 1(840) 791-650312-11-2023 Consult note* Tyrone Zimmerman MD - 10/11/2023 [...] around 1.8,arthritis and smoking. Came to ED [facility] on 10/11/2023 complaining of shortness of [...] result verified on 10/11/2023 0209 on specimen/case [id number] called with component [facility] for procedure Troponin I, High [...] 13-18 <7.5 7-12 <8.0 0- 6 7.5-8.5 [employer]. Diabetes Care 33(S1), Nov 2009. 02/12/2023 08:57 AM 7.7 (A) % Final Comment: Diagnosis of Diabetes-Adults Non-Diabetic: < or = 5.6% Increased risk for developing diabetes: 5.7-6.4% Diagnostic of diabetes: > or = 6.5% . Monitoring of Diabetes Age (y) Therapeutic Goal (%) Adults: >18 <7.0 Pediatrics: 13-18 <7.5 7-12 <8.0 0- 6 7.5-8.5 [employer]. Diabetes Care 33(S1), Nov 2009. [...] has a past medical history of Diabetes ([facility]). Past Surgical History: He has no past surgical history on file. Social History: He reports that he has been smoking cigarettes. He has never used smokeless tobacco. He reports that he does not drink alcohol and does not use drugs. Family History: Family History Family history unknown: Yes Allergies: Prednisone and Wovffuy-szr-wvr reductase inhibitors Inpatient Medications: Scheduled medications Medication [...] around 1.8,arthritis and smoking. Came to ED [facility] on 10/11/2023 complaining of shortness of [...] to discharge. If no t possible, have [facility] as an outpatient. - Due to [...] 12:13 PM ESTAssociated Order(s): IP CONSULT TO SURVEY OPERATIONS DIRECTOR Reason For Consult Acute respiratory failure History [...] has a past medical history of Diabetes ([facility]). Surgical History He has no past surgical history on file. Social History He reports that he has been smoking cigarettes. He has never used smokeless tobacco. He reports that he does not drink alcohol and does not use drugs. Family History Family History Family history unknown: Yes Allergies Prednisone and Dyfdnnv-zsk-tvx reductase inhibitors Review of Systems A full [...] COVID-19 Ayanna Albert DO documented in this [facility] Work Phone: [phone] 667-242612-11-2023 Consult note* Ayanna Albert DO - 10/11/2023 12:13 PM ESTAssociated Order(s): IP CONSULT TO SURVEY OPERATIONS DIRECTOR Reason For Consult Acute respiratory failure History [...] Family history unknown: Yes Allergies Prednisone and Phpvejb-mei-smj reductase inhibitors Review of Systems A full [...] procedures Principal Problem: COVID-19 Ayanna Albert DO [facility] Work Phone: 1([phone]) 706-836512-11-2023 Plan of care note* Care Plan - Vera Mari MD - 10/11/2023 11:49 AM EST Patient's reviewed. Currently on 5 L of oxygen by nasal cannula, sitting in bed. wants him to be full code with DNI. Continue with current management. [facility] Work Phone: [phone] Nurse Note* Geni Wall RN - 10/11/2023 10:00 AM EST , Alice ([phone]), called and requesting and update. Update provided. She is Enoc's POA and requests in the event of cardiac he receive CPR and life sustaining medications. She is unsure if she wants him intubated and wants more time to think about it. She reported she will be visiting [place] today around 11am. [facility]12-11-2023 Nurse Note* Zoila Mota RN - [...] Patient currently sleeping, HR 112, RR 24. [facility] Work Phone: [phone] History and physical note* Praful Pineda MD [...] Family history unknown: Yes Allergies Prednisone and Taviave-syu-iun reductase inhibitors Medications Prior to Admission Medication [...] Straw, Yellow Appearance, Urine Clear Clear Specific [place], Urine 1.014 1.005 - 1.035 pH, Urine [...] Signs/Symptoms:Cough. COMPARISON: Chest radiograph 11/04/2012 ACCESSION NUMBER(S): [id number] ORDERING CLINICIAN: AURY ROUSE FINDINGS: SUPPORT DEVICES: [...] Kahlil Fagan 10/11/2023 1:33 AM Dictation workstation: [id number] Assessment/Plan 77-year-old male, smoker, with a past [...] are not fully corrected) Praful Pineda MD [facility] Work Phone: 1(897) 279-196112-11-2023 History and physical note* Praful Pineda MD [...] IV labetalol and then admitted to the [facility] for further investigation and management. Patient resting [...] Family history unknown: Yes Allergies Prednisone and Glbaxqi-inb-wep reductase inhibitors Medications Prior to Admission Medication [...] Straw, Yellow Appearance, Urine Clear Clear Specific [place], Urine 1.014 1.005 - 1.035 pH, Urine [...] Signs/Symptoms:Cough. COMPARISON: Chest radiograph 11/04/2012 ACCESSION NUMBER(S): [id number] ORDERING CLINICIAN: AURY ROUSE FINDINGS: SUPPORT DEVICES: [...] Kahlil Fagan 10/11/2023 1:33 AM Dictation workstation: [id number] Assessment/Plan 77-year-old male, smoker, with a past [...] corrected) Praful Pineda MD documented [facility] Work Phone: 1(487) 567-711112-11-2023 Emergency department Note* Aury Rouse DO - [...] ED and establish an IV.Patient admits to 48-qdpd-ailf history of cigarette use and currently smokes 1 pack/day. Activity makes his symptoms worse rest helps to some extent. History provided by: EMS personnel and patient seismic interpreter used: No Physical Exam Vitals and nursing note reviewed. Constitutional: General: He is awake. He is in acute distress. Appearance: Normal appearance. He is overweight. He is ill-appearing. HENT: Head: Normocephalic and atraumatic. Right Ear: External ear normal. Decreased hearing noted. Left Ear: External ear normal. Decreased hearing noted. Nose: Congestion and rhinorrhea present. Rhinorrhea is clear. Mouth/Throat: Lips: [place]. Mouth: Mucous membranes are moist. Pharynx: Oropharynx [...] specimens andhas been validated for use at [facility]. Negative results do not preclude COVID-19 [...] in ng/mL Fibrinogen Equivalent Units (FEU). Per steward/stewardess third class's instructions for use, a value of less than 500 ng/mL (FEU) may help to exclude DVT or PE in outpatients when the assay is used with a clinical pretest probability assessment.([facility] must utilize and document eCalc 'Wells Score [...] at [facility] than at other [facility]. Direct result comparisons should only be made [...] at [facility] than at other [facility]. Direct result comparisons should only be made [...] at [facility] than at other [facility]. Direct result comparisons should only be made [...] Color, Urine Yellow Appearance, Urine Clear Specific [place], Urine 1.014 pH, Urine 5.0 Protein, Urine [...] and has been validated for use at [facility]. Negative results do not preclude Influenza A/B infections, and should not be used as the sole basis for diagnosis, treatment, or other management decisions. IfInfluenza A/B and RSV PCR results are negative, testing for Parainfluenza virus, Adenovirus and Metapneumovirus is routinely performed for [facility] pediatric oncology and intensive care inpatients, and isavailable on other patients by placing an add-on request. RSV PCR - Normal RSV PCR Not Detected Narrative: This assay is an FDA-cleared, in vitro diagnostic nucleic acid amplification test for the detectionof RSV from nasopharyngeal specimens, and has been validated for use at [facility]. Negative results do not preclude RSV infections, and should not be used as the sole basis for diagnosis, treatment, or other management decisions. If Influenza A/B and RSV PCR results are negative, testing for Parainfluenza virus, Adenovirus and Metapneumovirus is routinely performed for pediatric oncology and intensive care inpatients at [facility], and is available on other patients by [...] Abnormality Status --------- ------ Urinalysis with Reflex M...[[id number]] Abnormal Final result Extra Urine Orosco Tube[[id number]] Final result Please view results for these tests on the individual orders. TROPONIN SERIES- (INITIAL, 1 HR) Narrative: The following orders were created for panel order Troponin I Series, High Sensitivity (0, 1 HR). Procedure Abnormality Status --------- ------ Troponin I, High Sensiti...[[id number]] Abnormal Final result Troponin, High Sensitivi...[[id number]] Abnormal Final result Please view results for [...] Kahlil Fagan 10/11/2023 1:33 AM Dictation workstation: [id number] Critical Care Performed by: Aury Rouse DO [...] Q waves inthe anterior precordial leads. The ND interval is 148 ms. QRS durations 82 [...] did help a little. documented in this encounterOhio[facility] Work Phone: 1(982) 961-807712-11-2023 Emergency department Triage note* VANDANA Cosby - 10/11/2023 1:08 AM EST Pt brought in via EMS for fevers and chills. Pt reports being ill for the last 2-3 days. Pt states that he has been having fevers, chills, weakness, fatigue, headaches, body aches with some SOB. Pt was given a breathing treatment in route and states that it did help a little. [facility] Work Phone: 1(290) 659-174612-11-2023 Physician Emergency department Note* Aury Rouse DO [...] ED and establish an IV.Patient admits to 22-lhyd-jokb history of cigarette use and currently smokes 1 pack/day. Activity makes his symptoms worse rest helps to some extent. History provided by: EMS personnel and patient seismic interpreter used: No Physical Exam Vitals and nursing note reviewed. Constitutional: General: He is awake. He is in acute distress. Appearance: Normal appearance. He is overweight. He is ill-appearing. HENT: Head: Normocephalic and atraumatic. Right Ear: External ear normal. Decreased hearing noted. Left Ear: External ear normal. Decreased hearing noted. Nose: Congestion and rhinorrhea present. Rhinorrhea is clear. Mouth/Throat: Lips: [place]. Mouth: Mucous membranes are moist. Pharynx: Oropharynx [...] specimens andhas been validated for use at [facility]. Negative results do not preclude COVID-19 [...] in ng/mL Fibrinogen Equivalent Units (FEU). Per steward/stewardess third class's instructions for use, a value of less than 500 ng/mL (FEU) may help to exclude DVT or PE in outpatients when the assay is used with a clinical pretest probability assessment.([facility] must utilize and document eCalc 'Wells Score [...] at [facility] than at other [facility]. Direct result comparisons should only be made [...] at [facility] than at other [facility]. Direct result comparisons should only be made [...] at [facility] than at other [facility]. Direct result comparisons should only be made [...] Color, Urine Yellow Appearance, Urine Clear Specific [place], Urine 1.014 pH, Urine 5.0 Protein, Urine [...] Adenovirus and Metapneumovirus is routinely performed for [facility] pediatric oncology and intensive care inpatients, and isavailable on other patients by placing an add-on request. RSV PCR - Normal RSV PCR Not Detected Narrative: This assay is an FDA-cleared, in vitro diagnostic nucleic acid amplification test for the detectionof RSV from nasopharyngeal specimens, and has been validated for use at [facility]. Negative results do not preclude RSV infections, and should not be used as the sole basis for diagnosis, treatment, or other management decisions. If Influenza A/B and RSV PCR results are negative, testing for Parainfluenza virus, Adenovirus and Metapneumovirus is routinely performed for pediatric oncology and intensive care inpatients at [facility], and is available on other patients by [...] Abnormality Status --------- ------ Urinalysis with Reflex M...[[id number]] Abnormal Final result Extra Urine Orosco Tube[[id number]] Final result Please view results for these tests on the individual orders. TROPONIN SERIES- (INITIAL, 1 HR) Narrative: The following orders were created for panel order Troponin I Series, High Sensitivity (0, 1 HR). Procedure Abnormality Status --------- ------ Troponin I, High Sensiti...[[id number]] Abnormal Final result Troponin, High Sensitivi...[[id number]] Abnormal Final result Please view results for [...] Kahlilrakan Fagan 10/11/2023 1:33 AM Dictation workstation: [id number] Critical Care Performed by: Aury Rouse DO [...] Q waves inthe anterior precordial leads. The ND interval is 148 ms. QRS durations 82 ms. QTc is 455 ms axis is 39 degrees. Diagnoses as of 10/12/23514 COVID-19 Acute respiratory failure with hypoxia (CMS/HCC) Acute congestive heart failure, unspecified heart failure type (CMS/HCC) Pneumonia of both lungs due to infectious organism, unspecified part of lung Aury Rouse DO 10/12/23514 [facility] Work Phone: [phone]) 278-227812-08-2023 History of Present illness Narrative* Mary Vargas [...] being taken. Patient does not see a metal sander. Eye exam is current. Currently taking: No [...] bedside for hypoglycemia at night. 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 Had bilat cataract extraction Dr. Lopez. Sees Dr. Browne in [place] every year routinely.Has blurred vision with low [...] Call if BG consistently <70 or >250. [phone] Continue to check blood sugar 3 times [...] MD 10/10/23 8:04 PM documented in this [id number] Evaluation + Plan note* Assessment & Plan Note - Ayanna Albert DO - 08/25/2023 2:39 PM EDTAssociated Problem(s): CKD (chronic kidney disease) Doing well with DM HTN well controlled Sees Endocrinology. Has Type 1 DM On Statin Not on nephrotoxins [facility] Work Phone: [phone]) 144-626210-25-2023 Miscellaneous Notes* Assessment & Plan Note - Ayanna Albert DO - 08/25/2023 2:39 PM EDTAssociated Problem(s): CKD (chronic kidney disease) Doing well with DM HTN well controlled Sees Endocrinology. Has Type 1 DM On Statin Not on nephrotoxins documented in this encounterOhio[facility] Work Phone: [phone]) 807-152110-25-2023 History of Present illness Narrative* Ayanna Albert [...] [facility] encounter[facility] Work Phone: 1([phone]) 990-571104-21-2023 History of Present illness Narrative* Paty Ortega [...] being taken. Patient does not see a metal sander. Eye exam is current. Currently taking: No [...] at HS. PLAN: See below. 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 Had bilat cataract extraction Dr. Lopez. Sees Dr. Browne in [place] every year routinely. Nephropathy: Positive Creat: 1.09; [...] Call if BG consistently <70 or >250. [phone] Continue to check blood sugar 4 times [...] CNP 02/19/23 10:25 AM documented in this [id number] History of Present illness Narrative* Paty Ortega CNP - 10/19/2022 10:04 AM EST Images from the original note were not included. Patient ID: Enoc Armando is a 76 y.o. male Subjective: HPI: Enoc Armnado presents for follow-up of Type 1 diabetes [...] being taken. Patient does not see a metal sander. Eye exam is current. Currently taking: No [...] Reduce lunch and HS insulin. 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 Had bilat cataract extraction Dr. Lopez. Sees Dr. Browne in [place] every year routinely. Nephropathy: Positive Creat: 1.09; [...] Call if BG consistently <70 or >250. [phone] Continue to check blood sugar 4 times [...] CNP 10/19/22 10:25 AM documented in this [id number] History of Present illness Narrative* Paty Ortega [...] being taken. Patient does not see a metal sander. Eye exam is current. Currently taking: No [...] Reduce lunch and HS insulin. 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 Had bilat cataract extraction Dr. Lopez. Sees Dr. Browne in [place] every year routinely. Nephropathy: Positive Creat: 1.09; [...] Call if BG consistently <70 or >250. [phone] Continue to check blood sugar 4 times [...] MD 06/19/22 11:20 PM documented in this [id number] History of Present illness Narrative* Mary Vargas [...] being taken. Patient does not see a metal sander. Eye exam is current. Currently taking: No [...] Reduce lunch and HS insulin. 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 Had bilat cataract extraction Dr. Lopez. Sees Dr. Browne in [place] every year routinely. Nephropathy: Positive Creat: 1.09; [...] to check stenosis. To be done in [place] office. 2. Education: Reviewed ABCs of diabetes [...] Call if BG consistently <70 or >250. [phone] Continue to check blood sugar 4 times [...] MD 02/13/22 11:20 PM documented in this [id number] History of Present illness Narrative* Paty Ortega, FLOOR ASSEMBLER - 10/13/2021 2:10 PM EST Images from [...] being taken. Patient does not see a metal sander. Eye exam is current. Currently taking: No [...] HS. PLAN: See below. 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 Exam within last 12 months: yes Date: 10/16/20. Had bilat cataract extraction Dr. Lopez. Sees Dr. Browne in [place] every year routinely. Nephropathy: Negative Creat: 1.08; [...] Call if BG consistently <70 or >250. [phone] Continue to check blood sugar 4 times [...] CNP 10/13/21 2:55 PM documented in this [id number] History of Present illness Narrative* Paty Ortega [...] being taken. Patient does not see a metal sander. Eye exam is current. Currently taking: No [...] HS. PLAN: See below. 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 Exam within last 12 months: yes Date: 10/16/20. Had bilat cataract extraction Dr. Lopez. Sees Dr. Browne in [place] every year routinely. Nephropathy: Negative Creat: 1.08; [...] Call if BG consistently <70 or >250. [phone] Continue to check blood sugar 4 times [...] T4, Free TSH Electronically Signed by: Paty Otrega CNP 06/20/21 2:55 PM documented in this [id number] History of Present illness Narrative* Mary Vargas [...] being taken. Patient does not see a metal sander. Eye exam is current. Currently taking: No [...] HS. PLAN: See below. 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 Exam within last 12 months: yes Date: 10/16/20. Had bilat cataract extraction Dr. Lopez. Sees Dr. Browne in [place] every year routinely. Nephropathy: Negative Creat: 1.08; [...] Call if BG consistently <70 or >250. [phone] Continue to check blood sugar 4 times [...] in this encounterOhioHealthDischarge summary Author John Brandon [facility] Note Date/Time April 03, 2025 4:11a m [facility] Medical Records Department [address] [place] [address] Emergency Department Summary 04/03/25 MR#: [id number] Acct: [id number] Name: ENOC ARMANDO Rep #:[id number] : 1945 79 From: John Ramirez PCP: Dr. Ryley Jeter MD Status:REG ER Location: ED HPI History of Present Illness Chief Complaint: Shortness of Breath [facility] Medical History Pneumonia COVID Wears glasses Wears [...] AdvReac Other Verified 04/03/25 00:16 (Glucocorticoids) (steroids) Rzofrdq-Hoz-Nfw Reductase AdvReac Other Verified 04/03/25 00:16 Inhibitor [...] Consults: internal medicine only sees Dr. Hwang) [facility] Narrative: The patient was initially tachycardic, tachypneic, [...] to ICU This note was generated with [employer] dictation software. It may contain incorrectwords, spelling, [...] 76.4 H Lymph % (Auto) 13.5 L [place] % (Auto) 7.0 Eos % (Auto) 1.9 [...] possibly multifocal congestion and/or pneumonia. Reading Location: [facility] [address] Discharge Plan Triage Chief Complaint: Shortness of [...] MD [Primary Care Provider] - Print Language: Cuban What to do if you have Problems For any increased pain, shortness of breath, bleeding, nausea or vomiting, chestpain, or any unexpected problems, contact your Primary Care Provider. Call [facility] ([phone]) or report to the closest Emergency Room. Call 911 if necessary. 04/03/251 <Electronically signed by John Brandon DO> Cosigner Signature (if applicable): CC: Dr. Ryley Jeter MD ~ Signed [facility] Work Phone: Discharge summary Author [facility] Note Date/Time April 10, 2025 5:09 pm [facility] Medical Records Department [address] [place] [address] Instructions for Home/Discharge Instructions 04/10/25 1527 MR#: [id number] Acct: [id number] Name: ENOC ARMANDO Rep #:[id number] : 1945 79 From: Grace Arnold MD [...] MD; Dr. Smooth Luis MD ~ Signed [facility] Work Phone: Discharge summary Author Arnulfo [facility] Note Date/Time April 19, 2025 3:48 am [facility] Medical Records Department [address] [place] [address] Emergency Department Summary 04/19/25 MR#: [id number] Acct: [id number] Name: ENOC ARMANDO Rep #:[id number] : 1945 79 From: Arnulfo Jose DO [...] but denies any formal diagnosis of [facility] Medical History Non-STEMI (non-ST elevated myocardial infarction) [...] AdvReac Other Verified 04/03/25 00:16 (Glucocorticoids) (steroids) Jirovze-RDY-ZaF Reductase AdvReac Other Verified 04/03/25 00:16 Inhibitor (Aohjsro-Gyj-Dbx Reductase Inhibitor) Family History Mother COPD (chronic [...] 82.3 H Lymph % (Auto) 10.0 L [place] % (Auto) 5.7 Eos % (Auto) 1.0 [...] Magn[place] 2[place] [address] H Procalcitonin 0.10 POC Glucose 437 H Radiography Diagnostic Testing: Clinical Impression(s) from Imaging Studies Chest X-Ray 04/19/25 01:00 IMPRESSION: Increased mild bilateral pleural effusions. Increased passive atelectatic airspace disease of the lower lobes. Increased pulmonary venous congestion and interstitial edema. Enlarged cardiac silhouette. Reading Location: [place] [address] Chest x-ray as interpreted by the emergency [...] Chronic anemia Disposition Disposition: Acute Care Hospital [facility] What to do if you have Problems For any increased pain, shortness of breath, bleeding, nausea or vomiting, chestpain, or any unexpected problems, contact your Primary Care Provider. Call [facility] ([phone]) or report to the closest Emergency Room. Call 911 if necessary. 04/19/25 0348 <Electronically signed by Arnulfo Jose DO> Cosigner Signature (if applicable): CC: Dr. Ryley Jeter MD ~ Signed [facility] Work Phone: Discharge summary Author Malika Fonseca [facility] Note Date/Time April 22, 2025 1:13 pm [facility] Medical Records Department [address] [place] [address] Discharge Summary 04/22/25 1301 MR#: [id number] Acct: [id number] Name: ENOC ARMANDO Rep #:[id number] : 1945 79 From: Malika Fonseca DO PCP: Dr. Ryley Jeter MD Status:ADM IN Location: [place] [address] Providers Date of Admission: 04/19/25 Primary Care [...] Referrals / Follow Up: [facility] [Provider Group] - Within 1 Month Ryley Jeter MD [Primary Care Provider] - Within 2 Weeks Disposition Disposition (needs filled in before D/C Order can be placed): Home, Self Care Charges/Coding Visit Charges Inpatient E&M: 98136 Disch Hosp >30min 04/22/25 1313 <Electronically signed by Malika Fonseca DO> Cosigner Signature (if applicable): CC: Dr. Ryley Jeter MD; Dr. Malika Fonseca DO~ Signed [facility] Work Phone: Evaluation note* Diagnosis Type [...] diabetic neuropathy (CMS/HCC) documented in this encounter [facility] Work Phone: Evaluation note* Diagnosis Type [...] heart failure (CMS/HCC) documented in this encounter [facility] Work Phone: Evaluation note* Diagnosis 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- Primary Dyslipidemia Other and unspecified hyperlipidemia Congestive heart failure, unspecified HF chronicity, unspecified heart failure type (HCC) documented in this encounter [facility] noteNo assessment information availableWDayton [facility] Work Phone: Evaluation note* Diagnosis NSTEMI (non-ST elevated myocardial infarction) (CMS/HCC)- Primary Acute myocardial infarction, subendocardial infarction, episode of care unspecified MADONNA (acute kidney injury) (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) documented in this encounter [facility] Work Phone: Evaluation note* Diagnosis NSTEMI [...] diabetic neuropathy (Multi) documented in this encounter [facility] Work Phone: Evaluation note* Diagnosis Type [...] with diabetic neuropathy documented in this encounter [facility] Work Phone: Evaluation note* Diagnosis Type [...] [facility]* Diagnosis 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- Primary documented in [...] of cerebral infarction 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- Primary Claudication in [...] neuropathy (HCC)- Primary [facility]* Diagnosis Bilateral carotid artery stenosis Occlusion [...] with diabetic neuropathy documented in this encounter [facility] Work Phone: Evaluation note* Diagnosis Bilateral carotid artery stenosis Occlusion and stenosis of carotid artery without mention of cerebral infarction 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- Primary NSTEMI (non-ST [...] Unspecified essential hypertension [facility]* Diagnosis Onset Date Resolution Status Admit Date Acute hypoxic respiratory failure ac [place] April 03, 2025 4:16am [facility] Work Phone: Evaluation note* Diagnosis Bilateral carotid artery stenosis Occlusion and stenosis of carotid artery without mention of cerebral infarction 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) [facility]* Diagnosis Stage 3b chronic kidney disease [...] with diabetic neuropathy documented in this encounter [facility] Work Phone: History and physical note Author Dyana Hwang [facility] Note Date/Time April 03, 2025 4:42a m [facility] Medical Records Department [address] [place] [address] H&P Exam - Hospitalist 04/03/25 0402 MR#: [id number] Acct: [id number] Name: ENOC ARMANDO Rep #:[id number] : 1945 79 From: Dyana Hwang MD [...] pathology, Tobacco use who presents to the [facility] ED on 04/03/2025 with history of [...] AdvReac Other Verified 04/03/25 00:16 (Glucocorticoids) (steroids) Zsgqjvw-ZSH-FyC Reductase AdvReac Other Verified 04/03/25 00:16 Inhibitor (Epodkjp-Ptd-Eqt Reductase Inhibitor) Family History (Updated 04/03/25 @ [...] 76.4 H, Lymph % (Auto) 13.5 L, [place] % (Auto) 7.0, Eos % (Auto) 1.9, [...] possibly multifocal congestion and/or pneumonia. Reading Location: [place] [address] Chest CTA 04/03/25 02:34 IMPRESSION: Mild bilateral pleural effusions. Passive atelectatic airspace disease/airspace consolidations of the lower lobes. Bilateral chronic perihilar interstitial pulmonary thickening with associated mild multifocal ground-glass densities, possibly superimposed pneumonia. Mild diffuse spondylosis. No CT evidence of pulmonary embolus or aortic dissection. Reading Location: [place] [address] Assessment & Plan Assessment/Plan (1) Acute hypoxic respiratory failure: PLAN: Plan The patient is an 79 y/o M w/ PMHx: CKD stage III unclear subtype per GFR trending, Chronic macrocytic anemia, HTN, HLD, Diabetes mellitus type II, BPH with obstructive pathology, Tobacco use who presents to the [facility] ED on 04/03/2025 with history of [...] any pulmonary embolus or aortic dissection, initial [id number] with repeat delta troponin 76. Will maintain [...] 16 minutes. Charges/Coding Visit Charges Inpatient E&M: 15100 Init Hosp L3 Procedures Hospitalists Procedures: 12694 Advncd Care Plan 30 Min 04/03/25 0442 <Electronically signed by Dyana Hwang MD> Cosigner Signature (if applicable): CC: Dr. Dyana Hwang MD; Dr. Ryley Jeter MD~ Signed [facility] Work Phone: History of Present illness Narrative* At least a 5 yr HX of LBP (previous HX of sciatica). No recent film studies have been done. He willbe a low fall risk. The patient will continue his therapy at [facility]. Physical findings include limited trunk ROM with discomfort. Continue with trunk mech trng, STW (needling), and core stability/ROM exercises. * Clinical Presentation: Stable and/or uncomplicated characteristics. * Level of Complexity: low * Problem List: activity limitations, ADLs/IADLs/self care skills, decreased functional level, decreased knowledge of HEP, decreased knowledge of precautions, fall risk, gait/locomotion, pain, range ofmotion/joint mobility and strength. [facility] Work Phone: History of Present illness NarrativePatient identified by name and date of . Patient demonstrated good understanding of exercises and stretching with cues to complete after instruction. He presented with palpable tension in gluts and QL and paraspinals that responded well to STW.[facility] Work Phone: History of Present illness Narrative* [...] with relief noted d/t tightness in LB. [facility] Work Phone: History of Present illness Narrative* Tightness along the ITB and QL continues. * Palpable spams in both regions with with STW. * Fair trunk flexibility with SKTC. [facility] Work Phone: History of Present illness NarrativePatient identified by name and date of . Patient was able to progress with several exercises this date with addition of teri disc and focus on maintain upright posture. He presented with increased muscle tension in IT band and QL this date.[facility] Work Phone: History of Present illness NarrativePatient identified by name and date of . Added IT band stretch this date and instructed for HEP due to palpable tension. Reviewed importance of HEP even if he feels sore to increased with ROM and decrease with muscle tension, he verbalized good understanding. Patient continues to present with palpable muscle tension/restrictions in his piriforms.[facility] Work Phone: History of Present illness NarrativePatient identified by name and date of . Added IT band stretch this date and instructed for HEP due to palpable tension. Reviewed importance of HEP even if he feels sore to increased with ROM and decrease with muscle tension, he verbalized good understanding. Patient continues to present with palpable muscle tension/restrictions in his piriforms. [facility] Work Phone: History of Present illness NarrativePatient [...] and possible inclusion of trigger point dry needling.[facility] Work Phone: History of Present illness NarrativeSTW [...] a TENS unit for the patient. [facility] Work Phone: reason for referral (narrative)* Consultation (Routine) - Authorized Specialty Diagnoses / Procedures Referred By Jimy stacy Referred To Contact Nephrology Diagnoses Stage 3b chronic kidney disease (CMS/HCC) Procedures Follow Up In Nephrology Ayanna Albert DO [address] [place] [address] Referral ID Status Reason Start Date Expiration Date V isits Requested Visits Authorized [id number] Authorized 08/25/2023 08/24/2024 1 1 [facility] Work Phone: Reason for referral (narrative)* Consultation (Routine) - Authorized Specialty Diagnoses / Procedures Referred By Jimy stacy Referred To Contact Nephrology Diagnoses Stage 3b chronic kidney disease (Multi) Procedures Follow Up In Nephrology Maricruz Albert APRN-CNP, DNP [address] [place] [id number] Referral ID Status Reason Start Date Expiration Date V isits Requested Visits Authorized [id number] Authorized 02/24/2024 02/23/2025 1 1 [facility] Work Phone: Reason for referral (narrative)No reason for referral information [facility]WDay[facility] Work Phone: Reason for visit Narrative* Initial Evaluation . lumbar DDD. * Referred by: [facility] Work Phone: Reason for visit Narrative* Auth/Cert Specialty Diagnoses / Procedures Referred By Jimy stacy Referred To Contact Diagnoses NSTEMI (non-ST elevated myocardial infarction) (HCC) NSTEMI Referral ID Status Reason Start Date Expiration Date Visits Re quested Visits Authorized [id number] 1 1 [facility]* Auth/Cert (Routine) Specialty Diagnoses / Procedures Referred By Jimy stacy Referred To Contact Diagnoses Cardiovascular stress test abnormal Fatigue, unspecified type SOB (shortness of breath) Cardiovascular stress test abnormal [R94.39] Fatigue, unspecified type [R53.83] SOB (shortness of breath) [R06.02] Procedures Left Heart Cath Referral ID Status Reason Start Date Expiration Date Visits Re quested Visits Authorized [id number] 1 1 [facility] Instructions * Patient Instructions - Alexandra [...] FoundDocuments on File Type Date Recorded 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 Advance Directives and Living Will Documents on File Type Date Recorded 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 Advance Directives and Livin g Will 10/18/2020 1:33 PM Documents on File Type Date Recorded 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 Advance Directives and Livin g Will 10/18/2020 1:33 PM Documents on File Type Date Recorded 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 Advance Directives and Livin g Will 02/21/2021 3:38 PM Documents on File Type Date Recorded 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 Advance Directives and Livin g Will 02/21/2021 3:38 PM Latest Code Status on File Code Status Date Activated Date Inactivated Comments Full Code 10/11/2023 5:02 AM Question Answer Comments Plan of Care: Code Status Discussion Completed Decision Maker: Patient Advance Directive Response Recorded Date/ Time Living Will Yes August 05 7:59am Power of Manager Rfid Yes August 05 7:59am Latest Code Status [...] Documents on File Type Date Recorded 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 No April 03, 2025 5:17am Advance Directive Response Recorded Date/ Time Do you have a Healthcare Power of Manager Rfid? No April 03, 2025 5:17am Do you have a Healthcare Power of Manager Rfid? Yes April 19, 2025 12:03am Advance Directive Response Recorded Date/ Time Do you have a Healthcare Power of Manager Rfid? No April 03, 2025 5:17am Do you have a Healthcare Power of Manager Rfid? Yes April 19, 2025 4:03am Name of Medical Power of Manager Rfid Alice - April 19, 2025 4:03am History of Present Illness * Keeley Patton, FLOOR ASSEMBLER - 11/11/2018 8:11 AM EST Formatting of this note may be different from the original. Patient ID: Enoc Armando is a 72 y.o. male Subjective: HPI: Enoc Armando presents for follow-up of Type 1 diabetes The initial diagnosis of diabetes was tobi42-24 years ago in 1994. Disease course has [...] being taken. Patient does not see a metal sander. Eye exam is current. Patient with a [...] blood sugar though. PLAN: CPM. 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 Exam within last 12 months: yes Date: 08/2018 . Had bilat cataract extraction Dr. Lopez. Sees Dr. Browne in [place] every year routinely. Nephropathy: Negative Creat: 1.2, [...] Call if BG consistently <70 or >250. [phone] Continue to check blood sugar 4 times [...] being taken. He does not see a metal sander.Eye exam is current (Jun 16). 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 Exam within last 12 months: yes Date: 06/17. Had bilat cataract extraction Dr. Lopez. Sees Dr. 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 male Subjective: HPI: Enoc Armando presents for follow-up of Type 1 diabetes The initial diagnosis of diabetes was [id number] years ago in 1994. Disease course has [...] being taken. Patient does not see a metal sander. Eye exam is current. Currently taking: No [...] the morning. 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 Exam within last 12 months: yes Date: 08/2018- patient due next month for updated exam Had bilat cataract extraction Dr. Lopez. Sees Dr. Browne in [place] every year routinely. Nephropathy: Negative Creat: 1.0, [...] to bedtime appear to be typically less [id number] and usually less than 180. He was [...] Call if BG consistently <70 or >250. [phone] Continue to check blood sugar 4 times [...] diabetes The initial diagnosis of diabetes was losz41-78 years ago in 1994. Disease course has [...] being taken. Patient does not see a metal sander. Eye exam is current. Currently taking: No oral hypoglycemic medications Humalog insulin: 10 units at breakfast; 10 units at lunch; 14-15 units at supper Lantus insulin: 18 units at bedtime Outpatient Medications Marked as Taking for the 11/16/19 encounter (Office Visit) with Paty Ortega, FLOOR ASSEMBLER: amLODIPine (NORVASC) 10 MG tablet, Take 10 [...] at HS. 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 Exam within last 12 months: yes Date: 08/2018- patient due next month for updated exam Had bilat cataract extraction Dr. Lopez. Sees Dr. Browne in [place] every year routinely. Nephropathy: Negative Creat: 1.08; [...] Call if BG consistently <70 or >250. [phone] Continue to check blood sugar 4 times [...] being taken. Patient does not see a metal sander. Eye exam is current. Currently taking: No [...] <150 atHS. 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 Exam within last 12 months: yes Date: 09/2019- patient due September 2020for updated exam Had bilat cataract extraction Dr. Lopez. Sees Dr. Browne in [place] every yearroutinely. Nephropathy: Negative Creat: 1.01; eGFR: [...] Call if BG consistently <70 or >250. [phone] Continue to check blood sugar 4 times [...] being taken. Patient does not see a metal sander. Eye exam is current. Currently taking: No [...] <150 atHS. 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 Exam within last 12 months: yes Date: 10/16/20. Had bilat cataract extraction Dr. Lopez. Sees Dr. Browne in [place] every year routinely. Nephropathy: Negative Creat: 1.01; [...] Call if BG consistently <70 or >250. [phone] Continue to check blood sugar 4 times [...] diabetes The initial diagnosis of diabetes was [id number] years ago in 1994. Disease course has [...] being taken. Patient does not see a metal sander. Eye exam is current. Currently taking: No [...] same dose of 18 unitsnightly. 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 Exam within last 12 months: yes Date: 08/2018 . Had bilat cataract extraction Dr. Lopez. Sees Dr. Browne in [place] every year routinely. Nephropathy: Negative Creat: 1.0, [...] Call if BG consistently <70 or >250. [phone] Continue to check blood sugar 4 times [...] Ultrasound doppler carotid Mary Vargas MD [address] [place] [address] Status Reason Specialty Diagnoses / Procedures Referre d By Contact Referred To Contact Closed Cardiology Diagnoses Bilateral carotid artery stenosis Procedures Ultrasound doppler carotid Mary Vargas MD [address] [place] [address] [facility] [address] [facility] [place] [address] Specialty Diagnoses / Procedures Referred By Contac t Referred To Contact Urology Diagnoses Elevated PSA Paty Ortega CNP [address] [place] [address] Alvaro Gutierrez MD [address] [place] [phone] Referral ID Status Reason Start Date Expiration Date Visits Requested Visits Authorized [id number] Pending Review Specialty Services Required/Pat ient's Best Interest 06/19/2022 06/19/2023 1 1 Specialty Diagnoses / Procedures Referred By Contac t Referred To Contact Cardiology Diagnoses Bilateral carotid artery stenosis Procedures Ultrasound doppler carotid Paty Ortega CNP [address] [place] [address] Referral ID Status Reason Start Date Expiration Date V isits Requested Visits Authorized [id number] Authorized 10/19/2022 10/19/2023 1 1 Specialty Diagnoses / Procedures Referred By Jimy t Referred To Contact Radiology Diagnoses Congestive heart failure, unspecified HF chronicity, unspecified heart failure type (HCC) 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 Procedures NM Myocardial Perfusion Multiple SPECT Day, Woo Larsen MD [address] [place] [address] Referral ID Status Reason Start Date Expiration Date V isits Requested Visits Authorized [id number] New Request 10/21/2023 10/20/2024 4 4 Chief [...] section and content) DATE CREATED AUTHOR 04/21/2018 [facility] DATE CREATED AUTHOR AUTHOR'S ORGANIZ ATION 07/05/2019 [facility] DATE CREATED AUTHOR AUTHOR'S ORGANIZ ATION 08/04/2023 [facility] DATE CREATED AUTHOR AUTHOR'S ORGANIZ ATION 08/06/2023 [facility] DATE CREATED AUTHOR AUTHOR'S ORGANIZ ATION 10/13/2023 [facility] DATE CREATED AUTHOR AUTHOR'S ORGANIZ ATION 11/12/2024 [facility] DATE CREATED AUTHOR AUTHOR'S ORGANIZ ATION 03/13/2025 [facility] DATE CREATED AUTHOR AUTHOR'S ORGANIZ ATION 04/14/2025 [facility] DATE CREATED AUTHOR AUTHOR'S ORGANIZ ATION 04/28/2025 [facility] DATE CREATED AUTHOR AUTHOR'S ORGANIZ ATION 04/29/2025 [facility] DATE CREATED AUTHOR AUTHOR'S ORGANIZ ATION 05/03/2025 [facility] DATE CREATED AUTHOR AUTHOR'S ORGANIZ [...] Ultrasound doppler carotid Mary Vargas MD [address] [place] [address] [facility] [address] [facility] [address] Reason Onset Date Comments Medication Refill 10/08/2021 [...] No coded services entered Praful Maloney MD [address] [place] [address] [address] Referral ID Status Reason Start Date Expiration Date Visits Re quested Visits Authorized [id number] 1 1 Reason Comments Initial Visit (Intake) SOBOE Specialty Diagnoses / Procedures Referred By Contac t Referred To Contact Cardiology Diagnoses Congestive heart failure, unspecified HF chronicity, unspecified heart failure type (HCC) Mary Vargas MD [address] [place] [address] [facility] Sigrid Barrera [address] [facility] [place] [address] Referral ID Status Reason Start Date Expiration Date Visits Re quested Visits Authorized [id number] Closed 10/19/2023 10/18/2024 1 1 Reason Comments Respiratory Distress Pt comes in for dif ficulty breathing. Pt states that he was dx with a viral lung infection 1 wk ago and placed on a steroid. Pt had covid 1 month ago and was admitted for 1 wk at this facility. 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 EMS reports an O2 level in [...] carotid artery stenosis Sandi Phan PA-C [address] [place] [address] Phone: tel: fax: [place] [address] [place] [address] Phone: tel: Referral ID Status Reason Start Date Expiration Date V isits Requested Visits Authorized [id number] Pending Review 11/07/2024 11/07/2025 1 1 Reason [...] Nephrology Ayanna Albert, [address] [place] [address] Phone: tel: fax: Referral ID Status Reason Start Date Expiration Date V isits Requested Visits Authorized [id number] Authorized 08/29/2024 08/29/2025 1 1 Reason Comments Shortness of Breath Abnormal Lab BNP Reason Comments Diabetes Mellitus Diabetic Eye Exam du e on 10/14/2021 Reason Onset Date Comments Results 03/27/2025 Lab Reason Onset Date Comments Medication Refill 04/16/2025 Reason Comments Follow-up [facility] Care Teams (unrecognized sec tion and content) Line And Frame Poler Relationship Specialty Start Date End Date Nancy Mirza MD PCP - General Family Medicine 01/09/16 Line And Frame Poler Relationship Specialty Start Date End Date Nancy Mirza MD PCP - General Family Medicine 01/09/16 Line And Frame Poler Relationship Specialty Start Date End Date Nancy Mirza MD PCP - General Family Medicine 01/09/16 Line And Frame Poler Relationship Specialty Start Date End Date Nancy Mirza MD PCP - General Family Medicine 01/09/16 Line And Frame Poler Relationship Specialty Start Date End Date Nancy Mirza MD PCP - General Family Medicine 01/09/16 Line And Frame Poler Relationship Specialty Start Date End Date Nancy Mirza MD PCP - General Family Medicine 01/09/16 Line And Frame Poler Relationship Specialty Start Date End Date Nancy Mirza MD PCP - General Family Medicine 01/09/16 Line And Frame Poler Relationship Specialty Start Date End Date Nancy Mirza MD [address] [place] [address] PCP - General Family Medicine 01/09/16 Line And Frame Poler Relationship Specialty Start Date End Date Nancy Mirza MD [address] [place] [address] PCP - General Family Medicine 01/09/16 Line And Frame Poler Relationship Specialty Start Date End Date Nancy Mirza MD [address] [place] [address] PCP - General 11/01/18 Line And Frame Poler Relationship Specialty Start Date End Date Ryley Jeter MD [address] [place] [address] PCP - General Family Medicine 10/08/23 Line And Frame Poler Relationship Specialty Start Date End Date Nancy Mirza MD [address] [place] [address] PCP - General 11/01/18 Line And Frame Poler Relationship Specialty Start Date End Date Ryley Jeter MD [address] [place] [address] PCP - General Family Medicine 10/08/23 Line And Frame Poler Relationship Specialty Start Date End Date Ryley Jeter MD [address] [place], [place] [address] PCP - General Family Medicine 10/08/23 Team Status: Active Member Role Status Lizzette Jeter MD Primary Care Provider Active Team Status: Inactive Member Role Status Lizzette Jeter MD Primary Care Provider Active Jana Ferguson SCIENCE ANALYST, SCIENCE ANALYST-C Attending Provider Active Team Status: Inactive Member Role Status Lizzette Jeter MD Primary Care Provide r, Attending Provider, Referring Provider Active Line And Frame Poler Relationship Specialty Start Date End Date Ayanna Albert DO [address] [place] [address] PCP - [employer] Medicare Advantage PCP 11/01/23 Generic Provider, No Assigned MD [address] [place] [address] PCP - General Internal Medicine 11/26/23 Line And Frame Poler Relationship Specialty Start Date End Date Ayanna Albert DO [address] [place] [address] PCP - [employer] Medicare Advantage PCP 11/01/23 Gerri Amos MD [address] [place] [address] PCP - General Internal Medicine 11/26/23 Line And Frame Poler Relationship Specialty Start Date End Date Ryley Jeter MD [address] [place], [place] [address] PCP - General Family Medicine 10/08/23 Line And Frame Poler Relationship Specialty Start Date End Date Nancy Mirza MD [address] [place] [address] PCP - General 11/01/18 11/25/23 Line And Frame Poler Relationship Specialty Start Date End Date Ryley Jeter MD [address] [place], [place] [address] PCP - General Family Medicine 10/08/23 Line And Frame Poler Relationship Specialty Start Date End Date Ryley Jeter MD [address] [place], [place] [address] PCP - General Family Medicine 10/08/23 Line And Frame Poler Relationship Specialty Start Date End Date Ryley Jeter MD [address] [place], [place] [id number] PCP - General Family Medicine 10/08/23 Line And Frame Poler Relationship Specialty Start Date End Date Ryley Jeter MD [address] [place], [place] [address] PCP - General Family Medicine 10/08/23 Line And Frame Poler Relationship Specialty Start Date End Date Ayanna Albert DO [address] [place] [address] PCP - [employer] Medicare Advantage PCP 11/01/23 Generic Provider, No Assigned MD Doris [address] [place] [address] PCP - General Internal Medicine 11/26/23 Line And Frame Poler Relationship Specialty Start Date End Date Ryley Jeter MD [address] [place], [place] [id number] PCP - General Family Medicine 10/08/23 Line And Frame Poler Relationship Specialty Start Date End Date Ayanna Albert DO [address] [place] [address] PCP - [employer] Medicare Advantage PCP 11/01/23 Generic Provider, No Assigned PcpMD [address] [place] [id number] PCP - General Internal Medicine 11/26/23 Line And Frame Poler Relationship Specialty Start Date End Date Ryley Jeter MD [address] [place] [address] PCP - General Family Medicine 10/08/23 Line And Frame Poler Relationship Specialty Start Date End Date Ryley Jeter MD [address] [place] [address] PCP - General Family Medicine 10/08/23 Line And Frame Poler Relationship Specialty Start Date End Date Ryley Jeter MD [address] [place] [address] PCP - General Family Medicine 10/08/23 Line And Frame Poler Relationship Specialty Start Date End Date Ryley Jeter MD [address] [place] [address] PCP - General Family Medicine 10/08/23 Line And Frame Poler Relationship Specialty Start Date End Date Ryley Jeter MD [address] [place] [address] PCP - General Family Medicine 10/08/23 Line And Frame Poler Relationship Specialty Start Date End Date Ryley Jeter MD [address] [place] [address] PCP - General Family Medicine 10/08/23 Line And Frame Poler Relationship Specialty Start Date End Date Ryley Jeter MD [address] [place] [address] PCP - General Family Medicine 10/08/23 Line And Frame Poler Relationship Specialty Start Date End Date Ryley Jeter MD [address] [place] [address] PCP - General Family Medicine 10/08/23 Kristy Parker MD [address] [place] [address] Consulting Physician Vascular Surgery 11/09/24 Line And Frame Poler Relationship Specialty Start Date End Date Ryley Jeter MD [address] [place], [place] [address] PCP - General Family Medicine 10/08/23 Kristy Parker MD [address] [place], [place] [id number] Consulting Physician Vascular Surgery 11/09/24 Line And Frame Poler Relationship Specialty Start Date End Date Ryley Jeter MD [address] [place], [place] [id number] PCP - General Family Medicine 10/08/23 Kristy Parker MD [address] [place], [place] [phone] Consulting Physician Vascular Surgery 11/09/24 Line And Frame Poler Relationship Specialty Start Date End Date Ryley Jeter MD [address] [place], [place] [id number] PCP - General Family Medicine 10/08/23 Kristy Parker MD [address] [place] [address] Consulting Physician Vascular Surgery 11/09/24 Line And Frame Poler Relationship Specialty Start Date End Date Ryley Jeter MD [address] [place], [place] [address] PCP - General Family Medicine 10/08/23 Kristy Parker MD [address] [place] [address] Consulting Physician Vascular Surgery 11/09/24 Team Status: Inactive Member Role Status Dates Ryley Jeter MD Primary Care Provider Active St art: February 06, 2025 End: February 06, 2025 Dr. Kerwin Tamayo MD Attending Provider Activ e Start: February 06, 2025 End: February 06, 2025 Line [employer]er Relationship Specialty Start Date End Date Ryley Jeter MD [address] [place], [place] [id number] PCP - General Family Medicine 10/08/23 Kristy Parker MD [address] [facility] [address] Consulting Physician Vascular Surgery 11/09/24 [employer] Poler Relationship Specialty Start Date End Date Ryley Jeter MD [address] [place] [employer], [place] [id number] PCP - General Family Medicine 10/08/23 Kristy Parker MD [address] [facility] [place] [address] Consulting Physician Vascular Surgery 11/09/24 Line And Frame Poler Relationship Specialty Start Date End Date Ryley Jeter MD [address] [place], [place] [id number] PCP - General Family Medicine 10/08/23 Kristy Parker MD [address] [place] [address] Consulting Physician Vascular Surgery 11/09/24 Line And Frame Poler Relationship Specialty Start Date End Date Generic Provider, No Assigned PcpMD PCP - General Internal Medicine 11/26/23 [employer] Poler Relationship Specialty Start Date End Date Ryley Jeter MD [address] [place] [address] PCP - General Family Medicine 10/08/23 Kristy Parker MD [address] [place] [address] Consulting Physician Vascular Surgery 11/09/24 Line [employer] Poler Relationship Specialty Start Date End Date Ryley Jeter MD [address] [place] [address] PCP - General Family Medicine 10/08/23 Kristy Parker MD [address] [place] [address] Consulting Physician Vascular Surgery 11/09/24 Team Status: [...] 03, 2025 End: April 10, 2025 Dr. Denihsa Thompson MD Other Provider Active Start: April [...] Provider Active Start: April 04, 2025 Dr. rGace Arnold MD Other Provider Active St art: [...] Active Start: April 06, 2025 Dr. Nate Fobres MD Other Provider Active Star t: April [...] Active Start: April 07, 2025 Dr. Jose oMore MD Other Provider Active Start: April 07, [...] St art: April 05, 2025 Dr. Grace Arnlod MD Other Provider Active St art: April [...] Provider Active St art: April 22, 2025 Line [employer] Poler Relationship Specialty Start Date End Date Generic Provider, No Assigned Pcp, PCP - General Internal Medicine 11/26/23 Scheduled Active and Recently Administ ered Medications (unrecognized section and content) Medication Order 10/11/2023 10/12/2023 10/13/2023 albuterol 2.5 mg /3 mL (0.083 %) nebulizer solution 2.5 mg (COMPLETED) 2.5 mg, nebulization, Once, On Wed10/11/23 at 0150, For 1 dose 0203 (Given - Provider: Scarlet Ashford, SAUSAGE CUTTER - Comment: albuterol) amLODIPine (Norvasc) tablet 10 [...] swallow. 1900 (Given - Provider: Scarlet Ashford, SAUSAGE CUTTER) 0700 (Not Given - Provider: Amber Pascal, OLIVIA - Reason: Medication not available)191 (Given - Provider: Malika Hemphill, OLIVIA) 0622 (Given - Provider: Delmar Mcgowan, OLIVIA)1900 (Due) [...] 221 (Given - Provider: Kristi Bowman, RN) vcuuczeixxvr-wkmqdbwgsu-vcbaiigh (Zosyn) IV 3.375 g (COMPLETED) 3.375 g, [...] 11/27/23 at 0337, Anginal pain, may repeat [id number] x3, then notify physician. DO NOT CRUSH [...] 8 units instructed [place] [facility] isosorbide mononitrate (IMDUR) 24 hr tablet 30 [...] Chan RN)0214 (Rate/Dose Verify - Provider: Julia Cahn RN)0215 (Rate/Dose Verify - Provider: Julia Chan [...] Julia Chan RN)0219 (Rate/Dose Verify - Provider: uJlia Chan RN)0310 (Rate/Dose Verify - Provider: Julia [...] BE BASED ON THE PRIMARY CLINICAL RECORDS. [facility]. provides no warranty or guarantee of the accuracy or completeness of information in this document.
--- OUTSIDE RECORDS SUMMARY | 2025-05-05 22:17 | XMS RPT_ITS | CCD ---
Author Organization [facility] Care Team Providers Care Laboratory Equipment Installer Name Role Phone Nancy Mirza Unavailable Unavailable [...] Dr. Ayanna Albert Attending Unavail able [place], [facility] PATY MARCOSSONIA Referring Trenava ilable NANCY MIRZA Primary Care Unavailable Ayanna Albert DO Unavailable Generic Provider , No Assigned Pcp Primary Car e Provider Unavailable Gerri Amos MD Primary Care Provider Unavailabl ariela Jeter MD, Ryley Key Primary Care Provider [phone] Nancy Mirza MD Primary Care Provider Generic Provider , No Assigned Pcp Primary Car e Provider Unavailable Generic Provider , No Assigned Pcp Primary Car e Provider Unavailable Kristy Parker MD Unavailable [phone] GENERIC PROVIDER, NO ASSIGNED PCP Primary Care Unavailable GENERIC PROVIDER, NO ASSIGNED PCP Primary Care Unavailable GENERIC PROVIDER, NO ASSIGNED PCP Primary Care Unavailable Kristy Parker MD Unavailable [phone] Ryley Jeter MD Primary Care Provider Belkis URIBE, Dr. Suresh Attending Provider Generic Provider , No Assigned Pcp Primary Car e Provider Unavailable [facility] Consulting Unavai BERNADETTE Felix Attending [...] Jesus URIBE, Dr. Wood Other Provider [phone] Keenan URIBE, Dr. Song Other Provider [phone] Mervin URIBE, Dr. Gutiérrez Other Provider Deep URIBE, Dr. Arredondo Other Provider [phone] Saritha URIBE, Dr. Ya Other Provider Radha URIBE, Dr. Guerra Other Provider Unavailabl ariela Woods MD, Dr. Mar Other Provider Demetri URIBE, Dr. Altamirano Other Provider Cordelia URIBE, Dr. Walsh Other Provider [phone] Lucinda URIBE, Dr. Barton Other Provider Dr. Dillon Moses DO Other Provider Tiffanie URIBE, Dr. Ballesteros Other Provider [phone] Sami URIBE, Dr. Corona Other Provider Asim VERDUZCO, Dr. Mantilla Other Provider Andrei URIBE, Dr. Sullivan Other Provider [phone] Callum URIBE, Dr. Kent Other Provider Sai URIBE, Dr. Rain Attending Provider Adrian URIBE, Dr. Tijerina Attending Provider Veronica URIBE, Dr. Valentin Attending Provider Janelle URIBE, Dr. Smooth Ahn Attending Provider Teresa URIBE, Dr. Jose Perez Attending Provider WOO SMALL Referring [facility] Steffany URIBE, [facility] Primary Care Provider Belkis URIBE, Dr. Suresh [...] URIBE, Dr. Nancy Delgado Other Provider [phone] Susan URIBE, Dr. Stewart Other Provider Elvie URIBE, Dr. Butcher Other Provider [phone] Jesus URIBE, Dr. Wood Other Provider Keenan URIBE, Dr. Song Other Provider Mervin URIBE, Dr. Gutiérrez Other Provider [phone] Deep URIBE, Dr. Arredondo Other Provider Saritha URIBE, Dr. Ya Other Provider Radha URIBE, Dr. Guerra Other Provider Unavailabl ariela Woods MD, Dr. Mar Other Provider [phone] Demetri URIBE, Dr. Altamirano Other Provider Cordelia URIBE, Dr. Walsh Other Provider [phone] Lucinda URIBE, Dr. Barton Other Provider Josué VERDUZCO, Dr. Carranza Other Provider [phone] Tiffanie URIBE, Dr. Ballesteros Other Provider [phone] Sami URIBE, Dr. Corona Other Provider [phone] Asim VERDUZCO, Dr. Mantilla Other Provider Andrei URIBE, Dr. Sullivan Other Provider Callum URIBE, Dr. Kent Other Provider [phone] Sai URIBE, Dr. Rain Attending Provider Adrian [...] Provider Marian VERDUZCO, Dr. Hui Other Provider [facility], Dr. Ann Attending Provider STEFFANY, CHALON TUCKER [...] Consulting Unavailable Isabela Woods Consulting Unavailable Adarsh Mosqurea Consulting Unavailable Nico Storey Consulting Unavailable Mick [...] Unavailable Barbie Martin Attending Unavailabl e Steffany, [facility] Primary Care Unavailable Koroma, Young Admitting Unavailable Koroma, Young Attending Unavailable Koroma, Young Consulting Unavailable Grace Arnold Attending Unavailable Breeyz Campbell Attending Unavailable Steffany, Chal Primary Care [...] Attending Unavailable Nancy Rizzo Attending Unavailable Steffany, [facility] Primary Care Unavailable Kerwin Tamayo Attending Unavailabl e Allergies Allergy Classification Reported Allergen(s) Allergy Type Date of Onset Reaction(s) Facility Corticosteroids (1 source) predniSONE Drug Allergy 08-24-20 Other (See Comments) [facility] HMG-CoA Reductase Inhibitors (statins) (3 sources) Hmg-Coa Reductase Inhibitors (Statins) Drug Allergy 01-08-20 16 [facility] (20 sources) Hmg-Coa Reductase Inhibitors (Statins); Translations: [QUIVUNT-IYQ-XEE REDUCTASE INHIBITORS] Propensity to adverse reactions to drug 01-08-20 16 Other [facility] Work Phone: (6 sources) HMG-CoA reductase inhibitor Propensity to adverse reactions to drug 01-08-20 16 [facility] (20 sources) HMG-CoA reductase inhibitor Propensity to adverse reactions to drug 01-08-20 16 Unknown [facility] (18 sources) predniSONE; Translations: [predniSONE TABS] Drug Allergy 08-24-20 Other, Other (See Comments) [facility] (4 sources) predniSONE; Translations: [PREDNISONE] Drug Allergy 08-24-20 [facility] (5 sources) Glucocorticoid Receptor Agonists Propensity to adverse reactions 04-06-20 24 Other [facility] Comment on above: Blood sugar increase (2 sources) Spironolactone Drug Allergy 04-19-20 [facility] (1 source) Corticosteroids Drug allergy (disorder) 04-03-20 [facility] (1 source) Spironolactone Drug Allergy 04-19-20 [facility] (1 source) Orxnxvw-Oph-Whd Reductase Inhibitor Drug allergy (disorder) 04-03-20 [facility] Medications Current Medications Medication [...] (Vitamin D-3) tablet 5,000 Units compress.stocking,knee,reg,[facility] ed [facility] ([facility] source) Start: 05-01-2025 compress.stocking,knee,reg,m ed [facility] Indications: Stage 3b chronic kidney [...] 11/27/23 at 0337 Anginal pain, may repeat [id number] x3, then notify physician. DO NOT CRUSH [...] (porcine) injection 4,000 Units Start: 11-26-2023 take [id number] [IU] intravenously every four hours as needed [...] PLACED TUBE OR TUBE less than 14 Malay. 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; Translations: [longterm (current) use of insulin] Onset: 05-02-2025 Episodic [...] #### 9 2498 #### [facility] [place] [address] Customer Care Representative: Jadon Velez MD Chloride [Moles/Vol] 99 mmol/L Normal 98-110 [facility] Comment on above: Performed By: #### 9 2498 #### [facility] [place] [address] Customer Care Representative: Jadon Velez MD CO2 [Moles/Vol] 30 mmol/L Normal 20-32 [facility] Comment on above: Performed By: #### 9 2498 #### [facility] [place] [address] Customer Care Representative: Jadon Velez MD Creatinine [Mass/Vol] 2.37 mg/dL High 0.70-1.[address] [facility] Comment on above: Performed By: #### 9 2498 #### [facility] [place] [address] Customer Care Representative: Jadon Velez MD ELECTROLYTE BALANCE 10 mmol/L (calc) Normal 7-17 [facility] Comment on above: Performed By: #### 9 2498 #### [facility] [place] [address] Customer Care Representative: Jadon Velez MD GFR/1.73 sq M.predicted among non-blacks MDRD (S/P/Bld) [Vol rate/Area] 27 mL/min/{1.73_m2} Low > OR = 60 [facility] Comment on above: Performed By: #### 9 2498 #### [facility] [place] [address] Customer Care Representative: Jadon Velez MD Glucose [Mass/Vol] 40 mg/dL Low 65-99 [facility] Comment on above: Result Comment: Veri fied by repeat analysis. Fasting reference interval Performed By: #### 9 2498 #### [facility] [address], [address] [place] [address] Customer Care Representative: Jadon Velez MD Potassium [Moles/Vol] 4.0 mmol/L Normal 3.5-5.3 [facility] Comment on above: Performed By: #### 9 2498 #### [facility] [address], [address] [place] [address] Customer Care Representative: Jadon Velez MD Sodium [Moles/Vol] 139 mmol/L Normal 135-146 [facility] Comment on above: Performed By: #### 9 2498 #### [facility] [address], [address] [place] [address] Customer Care Representative: Jadon Velez MD Urea nitrogen [Mass/Vol] 82 mg/dL High 7- [facility] Comment on above: Performed By: #### 9 2498 #### [facility] [place] [address] Customer Care Representative: Jadon Velez MD Urea nitrogen/Creatinine [Mass ratio] 35 mg/mg High - [facility] Comment on above: Performed By: #### 9 2498 #### [facility] [place] [address] Customer Care Representative: Jadon Velez MD Basic Metabolic Profile (BMP )on 04-23-2025 BUN Normal - [facility] Comment on above: Result Comment: Canc elled via OM: Order cancelled - Patient discharged Performed By: #### L 500.2500, L100.0100 ####[facility] [address] [place], [address] BUN/CRE Normal - [facility] Comment on above: Result Comment: Canc elled via OM: Order cancelled - Patient discharged Performed By: #### L 500.2500, L100.0100 ####[facility] [address] [place], [address] Calcium Normal 7.6-11.0 [facility] Comment on above: Result Comment: Canc elled via OM: Order cancelled - Patient discharged Performed By: #### L 500.2500, L100.0100 ####[facility] [address] [place], [address] CL Normal 98-108 [facility] Comment on above: Result Comment: Canc elled via OM: Order cancelled - Patient discharged Performed By: #### L 500.2500, L100.0100 ####[facility] [address] [place], [address] CO2 Normal 21.0-32.0 [facility] Comment on above: Result Comment: Canc elled via OM: Order cancelled - Patient discharged Performed By: #### L 500.2500, L100.0100 ####[facility] [address] [place], [address] CREAT,SERUM Normal 0.70-1.20 [facility] Comment on above: Result Comment: Canc elled via OM: Order cancelled - Patient discharged Performed By: #### L 500.2500, L100.0100 ####[facility] [address] [place], [address] eGFR Normal >60 [facility] Comment on above: Result Comment: Canc elled via OM: Order cancelled - Patient discharged Performed By: #### L 500.2500, L100.0100 ####[facility] [address] [place], [address] GAP Normal 5-15 [facility] Comment on above: Result Comment: Canc elled via OM: Order cancelled - Patient discharged Performed By: #### L 500.2500, L100.0100 ####[facility] [address] [place], [address] GLU Normal 70-99 [facility] Comment on above: Result Comment: Canc elled via OM: Order cancelled - Patient discharged Performed By: #### L 500.2500, L100.0100 ####[facility] [address] [place], [address] Potassium Normal 3.3-5.1 [facility] Comment on above: Result Comment: Canc elled via OM: Order cancelled - Patient discharged Performed By: #### L 500.2500, L100.0100 ####[facility] [address] [place], [address] Basic Metabolic Profile (BMP) Normal 133-145 [facility] Comment on above: Result Comment: Canc elled via OM: Order cancelled - Patient discharged Performed By: #### L 500.2500, L100.0100 ####[facility] [address] [place], [address] CBC W/Diff, Automatedon 06-2 Absolute Neut Normal 2.0-7.7 [facility] Comment on above: Result Comment: Canc elled via OM: Order cancelled - Patient discharged Performed By: #### L 500.2500, L100.0100 ####[facility] [address] [place], [address] HCT Normal 40-54 [facility] Comment on above: Result Comment: Canc elled via OM: Order cancelled - Patient discharged Performed By: #### L 500.2500, L100.0100 ####[facility] [address] [place], [address] HGB Normal 13.0-16.5 [facility] Comment on above: Result Comment: Canc elled via OM: Order cancelled - Patient discharged Performed By: #### L 500.2500, L100.0100 ####[facility] [address] [place], [address] MCH Normal 27.0-32.0 [facility] Comment on above: Result Comment: Canc elled via OM: Order cancelled - Patient discharged Performed By: #### L 500.2500, L100.0100 ####[facility] [address] [place], [address] MCHC Normal 32-36 [facility] Comment on above: Result Comment: Canc elled via OM: Order cancelled - Patient discharged Performed By: #### L 500.2500, L100.0100 ####[facility] [address] [place], [address] MCV Normal 80-94 [facility] Comment on above: Result Comment: Canc elled via OM: Order cancelled - Patient discharged Performed By: #### L 500.2500, L100.0100 ####[facility] [address] [place], [address] NEUT% Normal 47-70 [facility] Comment on above: Result Comment: Canc elled via OM: Order cancelled - Patient discharged Performed By: #### L 500.2500, L100.0100 ####[facility] [address] [place], [address] PLT Normal 150-450 [facility] Comment on above: Result Comment: Canc elled via OM: Order cancelled - Patient discharged Performed By: #### L 500.2500, L100.0100 ####[facility] [address] [place], [address] RBC Normal 4.6-6.2 [facility] Comment on above: Result Comment: Canc elled via OM: Order cancelled - Patient discharged Performed By: #### L 500.2500, L100.0100 ####[facility] [address] [place], [address] RDW CV Normal 11.6-14.6 [facility] Comment on above: Result Comment: Canc elled via OM: Order cancelled - Patient discharged Performed By: #### L 500.2500, L100.0100 ####[facility] [address] [place], [address] RDW SD Normal 35.1-43.9 [facility] Comment on above: Result Comment: Canc elled via OM: Order cancelled - Patient discharged Performed By: #### L 500.2500, L100.0100 ####[facility] [address] [place], [address] WBC Normal 4.4-11.0 [facility] Comment on above: Result Comment: Canc elled via OM: Order cancelled - Patient discharged Performed By: #### L 500.2500, L100.0100 ####[facility] [address] [place], [address] Anion gap in Serum or Plasma Ordered By: Bipin Gonzalez on 04-22-2025 Anion gap [Moles/Vol] 14 mmol/L 5-15 [facility] BUN/creatinine ratioOrdered By: Bipin Gonzalez on 04-22-2025 Urea nitrogen/Creatinine [Mass ratio] 30.0 mg/mg High - [facility] Basic Metabolic Profile (BMP )on 04-22-2025 BUN/CRE 30.0 RATIO High - [facility] Comment on above: Performed By: #### L 500.2500, L501.5200 ####[facility] [address] [place], [address] Calcium [Mass/Vol] 8.6 mg/dL Normal 7.6-11.0 [facility] Comment on above: Performed By: #### L 500.2500, L501.5200 ####[facility] [address] [place], [address] Chloride [Moles/Vol] 100 mmol/L Normal 98-108 [facility] Comment on above: Performed By: #### L 500.2500, L501.5200 ####[facility] [address] [place], [address] CO2 [Moles/Vol] 23.0 mmol/L Normal 21.0-32.0 [facility] Comment on above: Performed By: #### L 500.2500, L501.5200 ####[facility] [address] [place], [address] Creatinine [Mass/Vol] 2.97 mg/dL High 0.70-1.20 [facility] Comment on above: Performed By: #### L 500.2500, L501.5200 ####[facility] [address] [place], [address] ECRCL 17.60 ml/min Low 50-250 [facility] Comment on above: Performed By: #### L 500.2500, L501.5200 ####[facility] [address] [place], [address] GAP 14 Normal 5-15 [facility] Comment on above: Performed By: #### L 500.2500, L501.5200 ####[facility] [address] [place], [address] GFR/1.73 sq M.predicted among non-blacks MDRD (S/P/Bld) [Vol rate/Area] 20 mL/min/{1.73_m2} Low >[address] [facility] Comment on above: Result Comment: mL/m in/1.73m2 CKD-EPI Creatinine Equation (2020) Performed By: #### L 500.2500, L501.5200 ####[facility] [address] [place], [address] Glucose [Mass/Vol] 240 mg/dL High 70-99 [facility] Comment on above: Performed By: #### L 500.2500, L501.5200 ####[facility] [address] [place], [address] Potassium [Moles/Vol] 4.2 mmol/L Normal 3.3-5.1 [facility] Comment on above: Performed By: #### L 500.2500, L501.5200 ####[facility] [address] [place], [address] Sodium [Moles/Vol] 137 mmol/L Normal 133-145 [facility] Comment on above: Performed By: #### L 500.2500, L501.5200 ####[facility] [address] [place], [address] Urea nitrogen [Mass/Vol] 89 mg/dL High 4-19 [facility] Comment on above: Performed By: #### L 500.2500, L501.5200 ####[facility] [address] [place], [address] Bedside Glucoseon 04-22-2025 FINGERSTICK GLU 246 mg/dL High 74-106 [facility] Comment on above: Result Comment: ADITI GEMENT OF PATIENT CARE PER NURSING PROTOCOL Performed By: #### L 501.080 ####[facility] [address] [place], [address] FINGERSTICK GLU 202 mg/dL High 74-106 [facility] Comment on above: Result Comment: ADITI GEMENT OF PATIENT CARE PER NURSING PROTOCOL Performed By: #### L 501.080 ####[facility] [address] [place], [address] Carbon dioxide, total [Moles /volume] in Central venous bloodOrdered By: Bipin Gonzalez on 04-22-2025 CO2 [Moles/Vol] 23.0 mmol/L 21.0-32.0 [facility] Chloride assayOrdered By: Song Gonzalez on 04-22-2025 Chloride [Moles/Vol] 100 mmol/L 98-108 [facility] Glomerular filtration rate ( GFR) estimation/1.73 sq m using serum, plasma, or whole bOrdered By: Bipin Gonzalez on 04-22-2025 GFR/1.73 sq M.predicted among non-blacks MDRD (S/P/Bld) [Vol rate/Area] 20 mL/min/{1.73_m2} Low >[address] [facility] deOrdered By: Malika Fonseca on 04-22-2025 Glucose [Mass/Vol] 202 mg/dL High 74-106 [facility] Magnesiumon 04-22-2025 Magnesium [Mass/Vol] 2.7 mg/dL High 1.5-2.2 [facility] Comment on above: Performed By: #### L 500.2500, L501.5200 ####[facility] [address] [place], [place], [address] Magnesium measurement (mass/ volume)Ordered By: Bipin Gonzalez on 04-22-2025 Magnesium (Unsp spec) [Mass/Vol] 2.7 mg/dL High 1.5-2.2 [facility] Potassium measurement (mass/ volume)Ordered By: Bipin Gonzalez on 04-22-2025 Potassium (Unsp spec) [Mass/Vol] 4.2 mmol/L 3.3-5.1 [facility] Serum creatinine measurement (mass/volume)Ordered By: Bipin Gonzalez on 04-22-2025 Creatinine [Mass/Vol] 2.97 mg/dL High 0.70-1.20 [facility] Serum glucose measurement (m ass/volume)Ordered By: Bipin Gonzalez on 04-22-2025 Glucose [Mass/Vol] 240 mg/dL High 70-99 [facility] Serum or plasma calcium nikkie urement (mass/volume)Ordered By: Bipin Gonzalez on 04-22-2025 Calcium [Mass/Vol] 8.6 mg/dL 7.6-11.0 [facility] Serum or plasma urea nitroge n measurement (mass/volume)Ordered By: Bipin Gonzalez on 04-22-2025 Urea nitrogen [Mass/Vol] 89 mg/dL High 4-19 [facility] Sodium levelOrdered By: Viet Gonzalez on 04-22-2025 Sodium [Moles/Vol] 137 mmol/L 133-145 [facility] Basic Metabolic Profile (BMP )on 04-21-2025 BUN/CRE 27.1 RATIO High 10-20 [facility] Comment on above: Performed By: #### L 500.2500 ####[facility] [address] [place], [address] Calcium [Mass/Vol] 8.9 mg/dL Normal 7.6-11.0 [facility] Comment on above: Performed By: #### L 500.2500 ####[facility] [address] [place], [address] Chloride [Moles/Vol] 102 mmol/L Normal 98-108 [facility] Comment on above: Performed By: #### L 500.2500 ####[facility] [address] [place], [address] CO2 [Moles/Vol] 22.4 mmol/L Normal 21.0-32.0 [facility] Comment on above: Performed By: #### L 500.2500 ####[facility] [address] [place], [address] Creatinine [Mass/Vol] 2.94 mg/dL High 0.70-1.20 [facility] Comment on above: Performed By: #### L 500.2500 ####[facility] [address] [place], [address] ECRCL 17.78 ml/min Low 50-250 [facility] Comment on above: Performed By: #### L 500.2500 ####[facility] [address] [place], [address] GAP 14 Normal 5-15 [facility] Comment on above: Performed By: #### L 500.2500 ####[facility] [address] [place], [address] GFR/1.73 sq M.predicted among non-blacks MDRD (S/P/Bld) [Vol rate/Area] 21 mL/min/{1.73_m2} Low >[address] [facility] Comment on above: Result Comment: mL/m in/1.73m2 CKD-EPI Creatinine Equation (2020) Performed By: #### L 500.2500 ####[facility] [address] [place], [address] Glucose [Mass/Vol] 136 mg/dL High 70-99 [facility] Comment on above: Performed By: #### L 500.2500 ####[facility] [address] [place], [address] Potassium [Moles/Vol] 4.5 mmol/L Normal 3.3-5.1 [facility] Comment on above: Performed By: #### L 500.2500 ####[facility] [address] [place], [address] Sodium [Moles/Vol] 138 mmol/L Normal 133-145 [facility] Comment on above: Performed By: #### L 500.2500 ####[facility] [address] [place], [address] Urea nitrogen [Mass/Vol] 80 mg/dL High 4-19 [facility] Comment on above: Performed By: #### L 500.2500 ####[facility] [address] [place], [address] Bedside Glucoseon 04-21-2025 FINGERSTICK GLU 341 mg/dL High 74-106 [facility] Comment on above: Result Comment: ADITI GEMENT OF PATIENT CARE PER NURSING PROTOCOL Performed By: #### L 501.080 ####[facility] [address] [place], [address] FINGERSTICK GLU 279 mg/dL High 74-106 [facility] Comment on above: Result Comment: ADITI GEMENT OF PATIENT CARE PER NURSING PROTOCOL Performed By: #### L 501.080 ####[facility] [address] [place], [address] FINGERSTICK GLU 201 mg/dL High 74-106 [facility] Comment on above: Result Comment: ADTII GEMENT OF PATIENT CARE PER NURSING PROTOCOL Performed By: #### L 501.080 ####[facility] [address] [place], [address] FINGERSTICK GLU 150 mg/dL High 74-106 [facility] Comment on above: Result Comment: ADITI GEMENT OF PATIENT CARE PER NURSING PROTOCOL Performed By: #### L 501.080 ####[facility] [address] [place], [address] Stool Occult Blood iFOBon STOB Positive Normal [facility] Comment on above: Performed By: #### M 100.7900 ####[facility] [address] [place], [address] Stool gastrointestinal hemog lobin detection by immunologic methodOrdered By: Nancy Henson on 04-21-2025 Lower GI hemoglobin IA Ql (Stl) Positive Abnormal [facility] Absolute lymphocyte countOrd ered By: Nancy Henson on 04-20-2025 Lymphocytes Auto (Unsp spec) [#/Vol] 0.52 10*3/uL Low 0.83-4.51 [facility] Automated lymphocyte count a s percentage of total leukocytesOrdered By: Nancy Henson on 04-20-2025 Lymphocytes/100 WBC Auto (Unsp spec) 3.5 % Low 19-41 [facility] Basophil percentageOrdered B y: Nancy Henson on 04-20-2025 Basophils/100 WBC (Bld) 0.1 % 0-1 [facility] Bedside Glucoseon 04-20-2025 FINGERSTICK GLU 241 mg/dL High 74-106 [facility] Comment on above: Result Comment: ADITI GEMENT OF PATIENT CARE PER NURSING PROTOCOL Performed By: #### L 501.080 ####[facility] [address] [place], [address] FINGERSTICK GLU 337 mg/dL High 74-106 [facility] Comment on above: Result Comment: ADITI GEMENT OF PATIENT CARE PER NURSING PROTOCOL Performed By: #### L 501.080 ####[facility] [address] [place], [address] FINGERSTICK GLU 391 mg/dL High 74-106 [facility] Comment on above: Result Comment: ADITI GEMENT OF PATIENT CARE PER NURSING PROTOCOL Performed By: #### L 501.080 ####[facility] [address] [place], [address] FINGERSTICK GLU 362 mg/dL High 74-106 [facility] Comment on above: Result Comment: ADITI GEMENT OF PATIENT CARE PER NURSING PROTOCOL Performed By: #### L 501.080 ####[facility] [address] [place], [address] Bilirubin, totalOrdered By: Nancy Henson on 04-20-2025 Bilirubin [Mass/Vol] 0.35 mg/dL 0.00-1.30 [facility] CBC W/Diff, Automatedon 04-02 Absolute Lymph 0.52 X10 3/uL Low 0.83-4.51 [facility] Comment on above: Performed By: #### L 500.4050, L100.0100 ####[facility] [address] [place], [address] Absolute Neut 14.0 X10 3/uL High 2.0-7.7 [facility] Comment on above: Performed By: #### L 500.4050, L100.0100 ####[facility] [address] [place], [address] Basophils/100 WBC (Bld) 0.1 % Normal 0-1 [facility] Comment on above: Performed By: #### L 500.4050, L100.0100 ####[facility] [address] [place], [address] Eosinophils/100 WBC (Bld) 0.0 % Normal 0-5 [facility] Comment on above: Performed By: #### L 500.4050, L100.0100 ####[facility] [address] [place], [address] Erythrocyte distribution width (RBC) [Ratio] 13.6 % Normal 11.6-14.6 [facility] Comment on above: Performed By: #### L 500.4050, L100.0100 ####[facility] [address] [place], [address] Hematocrit (Bld) [Volume fraction] 24.6 % Low 40-54 [facility] Comment on above: Performed By: #### L 500.4050, L100.0100 ####[facility] [address] [place], [address] Hemoglobin (Bld) [Mass/Vol] 7.9 g/dL Low 13.0-16.5 [facility] Comment on above: Performed By: #### L 500.4050, L100.0100 ####[facility] [address] [place], [address] IG% 0.800 Normal 0.0-0.9 [facility] Comment on above: Result Comment: IG% - Immature Granulocytes (promyelocytes, myelocytes andmetamyelocytes) > 1% indicates that a LEFT SHIFT is Present. Performed By: #### L 500.4050, L100.0100 ####[facility] [address] [place], [address] Lymphocytes/100 WBC (Bld) 3.5 % Low 19-41 [facility] Comment on above: Performed By: #### L 500.4050, L100.0100 ####[facility] [address] [place], [address] MCH (RBC) [Entitic mass] 29.9 pg Normal 27.0-32.0 [facility] Comment on above: Performed By: #### L 500.4050, L100.0100 ####[facility] [address] [place], [address] MCHC (RBC) [Mass/Vol] 32.1 g/dL Normal 32-36 [facility] Comment on above: Performed By: #### L 500.4050, L100.0100 ####[facility] [address] [place], [address] MCV (RBC) [Entitic vol] 93.2 fL Normal 80-94 [facility] Comment on above: Performed By: #### L 500.4050, L100.0100 ####[facility] [address] [place], [address] Monocytes/100 WBC (Bld) 1.7 % Normal 0-10 [facility] Comment on above: Performed By: #### L 500.4050, L100.0100 ####[facility] [address] [place], [address] Neutrophils/100 WBC (Bld) 93.9 % High 47-70 [facility] Comment on above: Performed By: #### L 500.4050, L100.0100 ####[facility] [address] [place], [address] Nucleated RBC (Bld) [#/Vol] 0 10*3/uL Normal 0-5 [facility] Comment on above: Performed By: #### L 500.4050, L100.0100 ####[facility] [address] [place], [address] Platelet mean volume (Bld) [Entitic vol] 11.6 fL Normal 6.2-12.0 [facility] Comment on above: Performed By: #### L 500.4050, L100.0100 ####[facility] [address] [place], [address] Platelets (Bld) [#/Vol] 216 10*3/uL Normal 150-450 [facility] Comment on above: Performed By: #### L 500.4050, L100.0100 ####[facility] [address] [place], [address] RBC (Bld) [#/Vol] 2.64 10*6/uL Low 4.6-6.2 [facility] Comment on above: Performed By: #### L 500.4050, L100.0100 ####[facility] [address] [place], [address] RDW SD 46.0 fl High 35.1-43.9 [facility] Comment on above: Performed By: #### L 500.4050, L100.0100 ####[facility] [address] [place], [address] WBC (Bld) [#/Vol] 14.9 10*3/uL High 4.4-11.0 [facility] Comment on above: Performed By: #### L 500.4050, L100.0100 ####[facility] [address] [place], [address] Comprehensive Metabolic Prof [facility] 04-20-2025 Albumin [Mass/Vol] 3.7 g/dL Normal 3.4-4.8 [facility] Comment on above: Performed By: #### L 500.4050, L100.0100 ####[facility] [address] [place], [address] Albumin/Globulin [Mass ratio] 1.5 {ratio} Normal 0.9-2.4 [facility] Comment on above: Performed By: #### L 500.4050, L100.0100 ####[facility] [address] [place], [address] ALK PHOS 78 U/L Normal 40-129 [facility] Comment on above: Performed By: #### L 500.4050, L100.0100 ####[facility] [address] [place], [address] ALT [Catalytic activity/Vol] 27 U/L Normal <=46 [facility] Comment on above: Performed By: #### L 500.4050, L100.0100 ####[facility] [address] [place], [address] AST [Catalytic activity/Vol] 21 U/L Normal <=37 [facility] Comment on above: Performed By: #### L 500.4050, L100.0100 ####[facility] [address] [place], [address] Bilirubin [Mass/Vol] 0.35 mg/dL Normal 0.00-1.30 [facility] Comment on above: Performed By: #### L 500.4050, L100.0100 ####[facility] [address] [place], [address] BUN/CRE 24.4 RATIO High 10-20 [facility] Comment on above: Performed By: #### L 500.4050, L100.0100 ####[facility] [address] [place], [address] Calcium [Mass/Vol] 9.1 mg/dL Normal 7.6-11.0 [facility] Comment on above: Performed By: #### L 500.4050, L100.0100 ####[facility] [address] [place], [address] Chloride [Moles/Vol] 99 mmol/L Normal 98-108 [facility] Comment on above: Performed By: #### L 500.4050, L100.0100 ####[facility] [address] [place], [address] CO2 [Moles/Vol] 22.7 mmol/L Normal 21.0-32.0 [facility] Comment on above: Performed By: #### L 500.4050, L100.0100 ####[facility] [address] [place], [address] Creatinine [Mass/Vol] 2.95 mg/dL High 0.70-1.20 [facility] Comment on above: Performed By: #### L 500.4050, L100.0100 ####[facility] [address] [place], [address] ECRCL 17.72 ml/min Low 50-250 [facility] Comment on above: Performed By: #### L 500.4050, L100.0100 ####[facility] [address] [place], [address] GAP 15 Normal 5-15 [facility] Comment on above: Performed By: #### L 500.4050, L100.0100 ####[facility] [address] [place], [address] GFR/1.73 sq M.predicted among non-blacks MDRD (S/P/Bld) [Vol rate/Area] 21 mL/min/{1.73_m2} Low >[address] [facility] Comment on above: Result Comment: mL/m in/1.73m2 CKD-EPI Creatinine Equation (2020) Performed By: #### L 500.4050, L100.0100 ####[facility] [address] [place], [address] Globulin (S) [Mass/Vol] 2.5 g/dL Normal 2.2-4.2 [facility] Comment on above: Performed By: #### L 500.4050, L100.0100 ####[facility] [address] [place], [address] Glucose [Mass/Vol] 375 mg/dL High 70-99 [facility] Comment on above: Performed By: #### L 500.4050, L100.0100 ####[facility] [address] [place], [address] Potassium [Moles/Vol] 4.7 mmol/L Normal 3.3-5.1 [facility] Comment on above: Performed By: #### L 500.4050, L100.0100 ####[facility] [address] [place], [address] Sodium [Moles/Vol] 136 mmol/L Normal 133-145 [facility] Comment on above: Performed By: #### L 500.4050, L100.0100 ####[facility] [address] [place], [address] T PROT 6.2 g/dL Normal 5.9-8.4 [facility] Comment on above: Performed By: #### L 500.4050, L100.0100 ####[facility] [address] [place], [address] Urea nitrogen [Mass/Vol] 72 mg/dL High 4-19 [facility] Comment on above: Performed By: #### L 500.4050, L100.0100 ####[facility] [address] [place], [address] Consultation - Cardiologyon 04-20-2025 Consultation - Cardiology Normal [facility] Electrocardiogram reportOrde red By: Barbie Martin on 04-20-2025 EKG study [facility] Work Phone: [phone] Eosinophil percentageOrdered By: Nancy Henson on 04-20-2025 Eosinophils/100 WBC (Bld) 0.0 % 0-5 [facility] Erythrocyte distribution wid th ratioOrdered By: Nancy Henson on 04-20-2025 Erythrocyte distribution width (RBC) [Ratio] 13.6 % 11.6-14.6 [facility] Erythrocyte distribution wid th standard deviationOrdered By: Nancy Henson on 04-20-2025 Erythrocyte distribution width (RBC) [Ratio] 46.0 fl High 35.1-43.9 [facility] Hematocrit Auto (Bld) [Volum e fraction]Ordered By: Nancy Henson on 04-20-2025 Hematocrit (Bld) [Volume fraction] 24.6 % Low 40-54 [facility] Hemoglobin measurementOrdere d By: Nancy Henson on 04-20-2025 Hemoglobin (Bld) [Mass/Vol] 7.9 g/dL Low 13.0-16.5 [facility] Immature granulocytes/100 WB C Auto (Bld)Ordered By: Nancy Henson on 04-20-2025 Immature granulocytes/100 WBC (Bld) 0.800 % 0.0-0.9 [facility] MCV (mean corpuscular volume ) determinationOrdered By: Nancy Henson on 04-20-2025 MCV (RBC) [Entitic vol] 93.2 fL 80-94 [facility] Mean corpuscular hemoglobin (MCH) determinationOrdered By: Nancy Henson on 04-20-2025 MCH (RBC) [Entitic mass] 29.9 pg 27.0-32.0 [facility] Monocyte percentageOrdered B y: Nancy Henson on 04-20-2025 Monocytes/100 WBC (Bld) 1.7 % 0-10 [facility] Neutrophil percentageOrdered By: Nancy Henson on 04-20-2025 Neutrophils/100 WBC (Bld) 93.9 % High 47-70 [facility] No Panel InformationOrdered By: Nancy Henson on 04-20-2025 21 U/L <38 [facility] Platelet countOrdered By: Juwan Henson on 04-20-2025 Platelets (Bld) [#/Vol] 216 10*3/uL 150-450 [facility] RBC Auto (Bld) [#/Vol]Ordere d By: Nancy Henson on 04-20-2025 RBC (Bld) [#/Vol] 2.64 10*6/uL Low 4.6-6.2 [facility] Serum globulin measurementOr dered By: Nancy Henson on 04-20-2025 Globulin (S) [Mass/Vol] 2.5 g/dL 2.2-4.2 [facility] Serum or plasma alanine clayton otransferase (ALT) measurementOrdered By: Nancy Henson on 04-20-2025 ALT [Catalytic activity/Vol] 27 U/L <47 [facility] Serum or plasma albumin nikkie urement (mass/volume)Ordered By: Nancy Henson on 04-20-2025 Albumin [Mass/Vol] 3.7 g/dL 3.4-4.8 [facility] Serum or plasma albumin/glob ulin mass ratioOrdered By: Nancy Henson on 04-20-2025 Albumin/Globulin [Mass ratio] 1.5 {ratio} 0.9-2.4 [facility] Serum or plasma alkaline dwight sphatase measurementOrdered By: Nancy Henson on 04-20-2025 ALP [Catalytic activity/Vol] 78 U/L 40-129 [facility] Total proteinOrdered By: Saravanan Henson on 04-20-2025 Protein [Mass/Vol] 6.2 g/dL 5.9-8.4 [facility] White blood cell (WBC) count Ordered By: Nancy Henson on 04-20-2025 WBC (Bld) [#/Vol] 14.9 10*3/uL High 4.4-11.0 [facility] 12 Lead EKGon 04-19-2025 12 Lead EKG Normal [facility] 12 Lead EKG Normal [facility] Absolute lymphocyte countOrd ered By: Arnulfo Jose on 04-19-2025 Lymphocytes Auto (Unsp spec) [#/Vol] 1.40 10*3/uL 0.83-4.51 [facility] Anion gap in Serum or Plasma Ordered By: Arnulfo Jose on 04-19-2025 Anion gap [Moles/Vol] 15 mmol/L 5-15 [facility] Assessment of wrist artery p atency prior to arterial punctureOrdered By: Nancy Henson on 04-19-2025 Arterial patency Wrist artery --pre arterial puncture N/A [facility] Arterial patency Wrist artery --pre arterial puncture Positive [facility] Automated lymphocyte count a s percentage of total leukocytesOrdered By: Arnulfo Jose on 04-19-2025 Lymphocytes/100 WBC Auto (Unsp spec) 10.0 % Low 19-41 [facility] BUN/creatinine ratioOrdered By: Arnulfo Jose on 04-19-2025 Urea nitrogen/Creatinine [Mass ratio] 23.8 mg/mg High 10-20 [facility] Basic Metabolic Profile (BMP )on 04-19-2025 BUN/CRE 24.8 RATIO High 10-20 [facility] Comment on above: Performed By: #### L 500.2500 ####[facility] [address] [place], [address] Calcium [Mass/Vol] 9.1 mg/dL Normal 7.6-11.0 [facility] Comment on above: Performed By: #### L 500.2500 ####[facility] [address] [place], [address] Chloride [Moles/Vol] 101 mmol/L Normal 98-108 [facility] Comment on above: Performed By: #### L 500.2500 ####[facility] [address] [place], [address] CO2 [Moles/Vol] 21.1 mmol/L Normal 21.0-32.0 [facility] Comment on above: Performed By: #### L 500.2500 ####[facility] [address] [place], [address] Creatinine [Mass/Vol] 2.79 mg/dL High 0.70-1.20 [facility] Comment on above: Performed By: #### L 500.2500 ####[facility] [address] [place], [address] ECRCL 18.74 ml/min Low 50-250 [facility] Comment on above: Performed By: #### L 500.2500 ####[facility] [address] [place], [address] GAP 15 Normal 5-15 [facility] Comment on above: Performed By: #### L 500.2500 ####[facility] [address] [place], [address] GFR/1.73 sq M.predicted among non-blacks MDRD (S/P/Bld) [Vol rate/Area] 22 mL/min/{1.73_m2} Low >[address] [facility] Comment on above: Result Comment: mL/m in/1.73m2 CKD-EPI Creatinine Equation (2020) Performed By: #### L 500.2500 ####[facility] [address] [place], [address] Glucose [Mass/Vol] 447 mg/dL High 70-99 [facility] Comment on above: Performed By: #### L 500.2500 ####[facility] [address] [place], [address] Potassium [Moles/Vol] 4.9 mmol/L Normal 3.3-5.1 [facility] Comment on above: Performed By: #### L 500.2500 ####[facility] [address] [place], [address] Sodium [Moles/Vol] 137 mmol/L Normal 133-145 [facility] Comment on above: Performed By: #### L 500.2500 ####[facility] [address] [place], [address] Urea nitrogen [Mass/Vol] 69 mg/dL High 4-19 [facility] Comment on above: Performed By: #### L 500.2500 ####[facility] [address] [place], [address] BUN/CRE 23.8 RATIO High 10-20 [facility] Comment on above: Performed By: #### L 501.5200, L500.2500, L100.0100, L503.7505 ####[facility] [address] [place], [address] Calcium [Mass/Vol] 8.6 mg/dL Normal 7.6-11.0 [facility] Comment on above: Performed By: #### L 501.5200, L500.2500, L100.0100, L503.7505 ####[facility] [address] [place], [address] Chloride [Moles/Vol] 100 mmol/L Normal 98-108 [facility] Comment on above: Performed By: #### L 501.5200, L500.2500, L100.0100, L503.7505 ####[facility] [address] [place], [address] CO2 [Moles/Vol] 20.9 mmol/L Low 21.0-32.0 [facility] Comment on above: Performed By: #### L 501.5200, L500.2500, L100.0100, L503.7505 ####[facility] [address] [place], [address] Creatinine [Mass/Vol] 2.73 mg/dL High 0.70-1.20 [facility] Comment on above: Performed By: #### L 501.5200, L500.2500, L100.0100, L503.7505 ####[facility] [address] [place], [address] ECRCL 19.84 ml/min Low 50-250 [facility] Comment on above: Performed By: #### L 501.5200, L500.2500, L100.0100, L503.7505 ####[facility] [address] [place], [address] GAP 15 Normal 5-15 [facility] Comment on above: Performed By: #### L 501.5200, L500.2500, L100.0100, L503.7505 ####[facility] [address] [place], [address] GFR/1.73 sq M.predicted among non-blacks MDRD (S/P/Bld) [Vol rate/Area] 23 mL/min/{1.73_m2} Low >[address] [facility] Comment on above: Result Comment: mL/m in/1.73m2 CKD-EPI Creatinine Equation (2020) Performed By: #### L 501.5200, L500.2500, L100.0100, L503.7505 ####[facility] [address] [place], [address] Glucose [Mass/Vol] 406 mg/dL High 70-99 [facility] Comment on above: Performed By: #### L 501.5200, L500.2500, L100.0100, L503.7505 ####[facility] [address] [place], [address] Potassium [Moles/Vol] 5.9 mmol/L High 3.3-5.1 [facility] Comment on above: Performed By: #### L 501.5200, L500.2500, L100.0100, L503.7505 ####[facility] [address] [place], [address] Sodium [Moles/Vol] 136 mmol/L Normal 133-145 [facility] Comment on above: Performed By: #### L 501.5200, L500.2500, L100.0100, L503.7505 ####[facility] [address] [place], [address] Urea nitrogen [Mass/Vol] 65 mg/dL High 4-19 [facility] Comment on above: Performed By: #### L 501.5200, L500.2500, L100.0100, L503.7505 ####[facility] [address] [place], [address] Basophil percentageOrdered B y: Arnulfo Jose on 04-19-2025 Basophils/100 WBC (Bld) 0.5 % 0-1 [facility] Bedside Glucoseon 04-19-2025 FINGERSTICK GLU 393 mg/dL High 74-106 [facility] Comment on above: Result Comment: ADITI GEMENT OF PATIENT CARE PER NURSING PROTOCOL Performed By: #### L 501.080 ####[facility] [address] [place], [address] FINGERSTICK GLU 374 mg/dL High [address] [place] [address] Comment on above: Result Comment: ADITI GEMENT OF PATIENT CARE PER NURSING PROTOCOL Performed By: #### L 501.080 ####[facility] [address] [place], [address] FINGERSTICK GLU 376 mg/dL High [address] [place] [address] Comment on above: Result Comment: ADITI GEMENT OF PATIENT CARE PER NURSING PROTOCOL Performed By: #### L 501.080 ####[facility] [address] [place], [address] FINGERSTICK GLU 403 mg/dL High [address] [place] [address] Comment on above: Result Comment: ADITI GEMENT OF PATIENT CARE PER NURSING PROTOCOL Performed By: #### L 501.080 ####[facility] [address] [place], [address] FINGERSTICK GLU 437 mg/dL High [address] [place] [address] Comment on above: Result Comment: ADITI GEMENT OF PATIENT CARE PER NURSING PROTOCOL Performed By: #### L 501.080 ####[facility] [address] [place], [address] Bilirubin Test strip Ql (U)O rdered By: Nancy Henson on 04-19-2025 Bilirubin Ql (U) Negative Negative [facility] Blood Gases by CPSon 025 FILI TEST N/A Normal [facility] Comment on above: Performed By: #### L 9000.0800 ####[facility] [address] [place], [address] Base excess Calc (Bld) [Moles/Vol] -2 mmol/L Normal -2 to +2 [facility] Comment on above: Performed By: #### L 9000.0800 ####[facility] [address] [place], [address] Blood Gas Type ART Normal [facility] Comment on above: Performed By: #### L 9000.0800 ####[facility] [address] [place], [address] CO2 [Moles/Vol] 23 mmol/L Normal [facility] Comment on above: Performed By: #### L 9000.0800 ####[facility] [address] [place], [address] Comment AIRVO 50L 50% Normal [facility] Comment on above: Performed By: #### L 9000.0800 ####[facility] [address] [place], [address] HCO3 (Bld) [Moles/Vol] 22.4 mmol/L Normal 22-26 [facility] Comment on above: Performed By: #### L 9000.0800 ####[facility] [address] [place], [address] Mode Not entered Normal [facility] Comment on above: Performed By: #### L 9000.0800 ####[facility] [address] [place], [address] O2 Delivery Dev AIRVO Normal [facility] Comment on above: Performed By: #### L 9000.0800 ####[facility] [address] [place], [address] pCO2 33.2 mmHg Low 35-45 [facility] Comment on above: Performed By: #### L 9000.0800 ####[facility] [address] [place], [address] pH (Bld) 7.44 [pH] Normal 7.35-7.45 [facility] Comment on above: Performed By: #### L 9000.0800 ####[facility] [address] [place], [address] PO2 92 mmHG Normal 75-100 [facility] Comment on above: Performed By: #### L 9000.0800 ####[facility] [address] [place], [address] SITE L Radial Normal [facility] Comment on above: Performed By: #### L 9000.0800 ####[facility] [address] [place], [address] SO2 98 Normal 95-99 [facility] Comment on above: Performed By: #### L 9000.0800 ####[facility] [address] [place], [address] FILI TEST Positive Normal [facility] Comment on above: Performed By: #### L 9000.0800 ####[facility] [address] [place], [address] Base excess Calc (Bld) [Moles/Vol] -2 mmol/L Normal -2 to +2 [facility] Comment on above: Performed By: #### L 9000.0800 ####[facility] [address] [place], [address] Blood Gas Type ART Normal [facility] Comment on above: Performed By: #### L 9000.0800 ####[facility] [address] [place], [address] CO2 [Moles/Vol] 23 mmol/L Normal [facility] Comment on above: Performed By: #### L 0.0800 ####[facility] [address] [place], [address] FI02 50.0 Normal [facility] Comment on above: Performed By: #### L 9000.0800 ####[facility] [address] [place], [address] HCO3 (Bld) [Moles/Vol] 21.6 mmol/L Low 22-26 [facility] Comment on above: Performed By: #### L 9000.0800 ####[facility] [address] [place], [address] Mode Not entered [facility] Comment on above: Performed By: #### L 9000.0800 ####[facility] [address] [place], [address] O2 Delivery Dev HFNC Normal [facility] Comment on above: Performed By: #### L 0.0800 ####[facility] [address] [place], [address] pCO2 30.8 mmHg Low 35-45 [facility] Comment on above: Performed By: #### L 9000.0800 ####[facility] [address] [place], [address] pH (Bld) 7.45 [pH] Normal 7.35-7.45 [facility] Comment on above: Performed By: #### L 9000.0800 ####[facility] [address] [place], [address] PO2 103 mmHG High 75-100 [facility] Comment on above: Performed By: #### L 9000.0800 ####[facility] [address] [place], [address] SITE L Radial Normal [facility] Comment on above: Performed By: #### L 0.0800 ####[facility] [address] [place], [address] SO2 98 Normal 95-99 [facility] Comment on above: Performed By: #### L 9000.0800 ####[facility] [address] [place], [address] Blood base excess determinat ionOrdered By: Nancy Henson on 04-19-2025 Base excess Calc (BldV) [Moles/Vol] -2 mmol/L -2-2 [facility] Base excess Calc (BldV) [Moles/Vol] -2 mmol/L -2-2 [facility] Blood bicarbonate measuremen tOrdered By: Nancy Henson on 04-19-2025 HCO3 (Bld) [Moles/Vol] 22.4 mmol/L 22- [facility] HCO3 (Bld) [Moles/Vol] 21.6 mmol/L Low - [facility] CBC W/Diff, Automatedon 04-01 Absolute Lymph 0.33 X10 3/uL Low 0.83-4.51 [facility] Comment on above: Performed By: #### L 501.9985, L100.0100, L501.2300 ####[facility] [address] [place], [address] Absolute Neut 12.7 X10 3/uL High 2.0-7.7 [facility] Comment on above: Performed By: #### L 501.9985, L100.0100, L501.2300 ####[facility] [address] [place], [address] Basophils/100 WBC (Bld) 0.2 % Normal 0-1 [facility] Comment on above: Performed By: #### L 501.9985, L100.0100, L501.2300 ####[facility] [address], [address] Eosinophils/100 WBC (Bld) 0.1 % Normal 0-5 [facility] Comment on above: Performed By: #### L 501.9985, L100.0100, L501.2300 ####[facility] [address] [place], [address] Erythrocyte distribution width (RBC) [Ratio] 13.4 % Normal 11.6-14.6 [facility] Comment on above: Performed By: #### L 501.9985, L100.0100, L501.2300 ####[facility] [address] [place], [address] Hematocrit (Bld) [Volume fraction] 23.7 % Low 40-54 [facility] Comment on above: Performed By: #### L 501.9985, L100.0100, L501.2300 ####[facility] [address] [place], [address] Hemoglobin (Bld) [Mass/Vol] 7.5 g/dL Low 13.0-16.5 [facility] Comment on above: Performed By: #### L 501.9985, L100.0100, L501.2300 ####[facility] [address] [place], [address] IG% 0.600 Normal 0.0-0.9 [facility] Comment on above: Result Comment: IG% - Immature Granulocytes (promyelocytes, myelocytes andmetamyelocytes) > 1% indicates that a LEFT SHIFT is Present. Performed By: #### L 501.9985, L100.0100, L501.2300 ####[facility] [address] [place], [address] Lymphocytes/100 WBC (Bld) 2.4 % Low 19-41 [facility] Comment on above: Performed By: #### L 501.9985, L100.0100, L501.2300 ####[facility] [address] [place], [address] MCH (RBC) [Entitic mass] 29.8 pg Normal 27.0-32.0 [facility] Comment on above: Performed By: #### L 501.9985, L100.0100, L501.2300 ####[facility] [address] [place], [address] MCHC (RBC) [Mass/Vol] 31.6 g/dL Low 32-36 [facility] Comment on above: Performed By: #### L 501.9985, L100.0100, L501.2300 ####[facility] [address] [place], [address] MCV (RBC) [Entitic vol] 94.0 fL Normal 80-94 [facility] Comment on above: Performed By: #### L 501.9985, L100.0100, L501.2300 ####[facility] [address] [place], [address] Monocytes/100 WBC (Bld) 2.4 % Normal 0-10 [facility] Comment on above: Performed By: #### L 501.9985, L100.0100, L501.2300 ####[facility] [address] [place], [address] Neutrophils/100 WBC (Bld) 94.3 % High 47-70 [facility] Comment on above: Performed By: #### L 501.9985, L100.0100, L501.2300 ####[facility] [address] [place], [address] Nucleated RBC (Bld) [#/Vol] 0 10*3/uL Normal 0-5 [facility] Comment on above: Performed By: #### L 501.9985, L100.0100, L501.2300 ####[facility] [address] [place], [address] Platelet mean volume (Bld) [Entitic vol] 11.3 fL Normal 6.2-12.0 [facility] Comment on above: Performed By: #### L 501.9985, L100.0100, L501.2300 ####[facility] [address] [place], [address] Platelets (Bld) [#/Vol] 218 10*3/uL Normal 150-450 [facility] Comment on above: Performed By: #### L 501.9985, L100.0100, L501.2300 ####[facility] [address] [place], [address] RBC (Bld) [#/Vol] 2.52 10*6/uL Low 4.6-6.2 [facility] Comment on above: Performed By: #### L 501.9985, L100.0100, L501.2300 ####[facility] [address] [place], [address] RDW SD 46.2 fl High 35.1-43.9 [facility] Comment on above: Performed By: #### L 501.9985, L100.0100, L501.2300 ####[facility] [address] [place], [address] WBC (Bld) [#/Vol] 13.5 10*3/uL High 4.4-11.0 [facility] Comment on above: Performed By: #### L 501.9985, L100.0100, L501.2300 ####[facility] [address] [place], [address] Absolute Lymph 1.40 X10 3/uL Normal 0.83-4.51 [facility] Comment on above: Performed By: #### L 501.5200, L500.2500, L100.0100, L503.7505 ####[facility] [address] [place], [address] Absolute Neut 11.5 X10 3/uL High 2.0-7.7 [facility] Comment on above: Performed By: #### L 501.5200, L500.2500, L100.0100, L503.7505 ####[facility] [address] [place], [address] Basophils/100 WBC (Bld) 0.5 % Normal 0-1 [facility] Comment on above: Performed By: #### L 501.5200, L500.2500, L100.0100, L503.7505 ####[facility] [address] [place], [address] Eosinophils/100 WBC (Bld) 1.0 % Normal 0-5 [facility] Comment on above: Performed By: #### L 501.5200, L500.2500, L100.0100, L503.7505 ####[facility] [address] [place], [address] Erythrocyte distribution width (RBC) [Ratio] 13.4 % Normal 11.6-14.6 [facility] Comment on above: Performed By: #### L 501.5200, L500.2500, L100.0100, L503.7505 ####[facility] [address] [place], [address] Hematocrit (Bld) [Volume fraction] 27.5 % Low 40-54 [facility] Comment on above: Performed By: #### L 501.5200, L500.2500, L100.0100, L503.7505 ####[facility] [address] [place], [address] Hemoglobin (Bld) [Mass/Vol] 8.8 g/dL Low 13.0-16.5 [facility] Comment on above: Performed By: #### L 501.5200, L500.2500, L100.0100, L503.7505 ####[facility] [address] [place], [address] IG% 0.500 Normal 0.0-0.9 [facility] Comment on above: Result Comment: IG% - Immature Granulocytes (promyelocytes, myelocytes andmetamyelocytes) > 1% indicates that a LEFT SHIFT is Present. Performed By: #### L 501.5200, L500.2500, L100.0100, L503.7505 ####[facility] [address] [place], [address] Lymphocytes/100 WBC (Bld) 10.0 % Low 19-41 [facility] Comment on above: Performed By: #### L 501.5200, L500.2500, L100.0100, L503.7505 ####[facility] [address] [place], [address] MCH (RBC) [Entitic mass] 30.0 pg Normal 27.0-32.0 [facility] Comment on above: Performed By: #### L 501.5200, L500.2500, L100.0100, L503.7505 ####[facility] [address] [place], [address] MCHC (RBC) [Mass/Vol] 32.0 g/dL Normal 32-36 [facility] Comment on above: Performed By: #### L 501.5200, L500.2500, L100.0100, L503.7505 ####[facility] [address] [place], [address] MCV (RBC) [Entitic vol] 93.9 fL Normal 80-94 [facility] Comment on above: Performed By: #### L 501.5200, L500.2500, L100.0100, L503.7505 ####[facility] [address] [place], [address] Monocytes/100 WBC (Bld) 5.7 % Normal 0-10 [facility] Comment on above: Performed By: #### L 501.5200, L500.2500, L100.0100, L503.7505 ####[facility] [address] [place], [address] Neutrophils/100 WBC (Bld) 82.3 % High 47-70 [facility] Comment on above: Performed By: #### L 501.5200, L500.2500, L100.0100, L503.7505 ####[facility] [address] [place], [address] Nucleated RBC (Bld) [#/Vol] 0 10*3/uL Normal 0-5 [facility] Comment on above: Performed By: #### L 501.5200, L500.2500, L100.0100, L503.7505 ####[facility] [address] [place], [address] Platelet mean volume (Bld) [Entitic vol] 11.4 fL Normal 6.2-12.0 [facility] Comment on above: Performed By: #### L 501.5200, L500.2500, L100.0100, L503.7505 ####[facility] [address] [place], [address] Platelets (Bld) [#/Vol] 289 10*3/uL Normal 150-450 [facility] Comment on above: Performed By: #### L 501.5200, L500.2500, L100.0100, L503.7505 ####[facility] [address] [place], [address] RBC (Bld) [#/Vol] 2.93 10*6/uL Low 4.6-6.2 [facility] Comment on above: Performed By: #### L 501.5200, L500.2500, L100.0100, L503.7505 ####[facility] [address] [place], [address] RDW SD 46.1 fl High 35.1-43.9 [facility] Comment on above: Performed By: #### L 501.5200, L500.2500, L100.0100, L503.7505 ####[facility] [address] [place], [address] WBC (Bld) [#/Vol] 14.0 10*3/uL High 4.4-11.0 [facility] Comment on above: Performed By: #### L 501.5200, L500.2500, L100.0100, L503.7505 ####[facility] [address] [place], [address] Carbon dioxide, total [Moles /volume] in Central venous bloodOrdered By: Arnulfo Jose on 04-19-2025 CO2 [Moles/Vol] 20.9 mmol/L Low 21.0-32.0 [facility] Chest 1 View (Portable)on Chest 1 View (Portable) Normal [facility] Chloride assayOrdered By: Stephenie Jose on 04-19-2025 Chloride [Moles/Vol] 100 mmol/L 98-108 [facility] Comprehensive Metabolic Prof ilon 04-19-2025 Albumin [Mass/Vol] 3.3 g/dL Low 3.4-4.8 [facility] Comment on above: Performed By: #### L 501.9520, L503.7505, L500.4050 ####[facility] [address] [place], [address] Albumin/Globulin [Mass ratio] 1.3 {ratio} Normal 0.9-2.4 [facility] Comment on above: Performed By: #### L 501.9520, L503.7505, L500.4050 ####[facility] [address] [place], [address] ALK PHOS 76 U/L Normal 40-129 [facility] Comment on above: Performed By: #### L 501.9520, L503.7505, L500.4050 ####[facility] [address] [place], [address] ALT [Catalytic activity/Vol] 30 U/L Normal <=46 [facility] Comment on above: Performed By: #### L 501.9520, L503.7505, L500.4050 ####[facility] [address] [place], [address] AST [Catalytic activity/Vol] 26 U/L Normal <=37 [facility] Comment on above: Performed By: #### L 501.9520, L503.7505, L500.4050 ####[facility] [address] [place], [address] Bilirubin [Mass/Vol] 0.31 mg/dL Normal 0.00-1.30 [facility] Comment on above: Performed By: #### L 501.9520, L503.7505, L500.4050 ####[facility] [address] [place], [address] BUN/CRE 23.4 RATIO High 10-20 [facility] Comment on above: Performed By: #### L 501.9520, L503.7505, L500.4050 ####[facility] [address] [place], [address] Calcium [Mass/Vol] 9.3 mg/dL Normal 7.6-11.0 [facility] Comment on above: Performed By: #### L 501.9520, L503.7505, L500.4050 ####[facility] [address] [place], [address] Chloride [Moles/Vol] 101 mmol/L Normal 98-108 [facility] Comment on above: Performed By: #### L 501.9520, L503.7505, L500.4050 ####[facility] [address] [place], [address] CO2 [Moles/Vol] 17.8 mmol/L Low 21.0-32.0 [facility] Comment on above: Performed By: #### L 501.9520, L503.7505, L500.4050 ####[facility] [address] [place], [address] Creatinine [Mass/Vol] 2.95 mg/dL High 0.70-1.20 [facility] Comment on above: Performed By: #### L 501.9520, L503.7505, L500.4050 ####[facility] [address] [place], [address] ECRCL 17.72 ml/min Low 50-250 [facility] Comment on above: Performed By: #### L 501.9520, L503.7505, L500.4050 ####[facility] [address] [place], [address] GAP 18 High 5-15 [facility] Comment on above: Performed By: #### L 501.9520, L503.7505, L500.4050 ####[facility] [address] [place], [address] GFR/1.73 sq M.predicted among non-blacks MDRD (S/P/Bld) [Vol rate/Area] 21 mL/min/{1.73_m2} Low >[address] [facility] Comment on above: Result Comment: mL/m in/1.73m2 CKD-EPI Creatinine Equation (2020) Performed By: #### L 501.9520, L503.7505, L500.4050 ####[facility] [address] [place], [address] Globulin (S) [Mass/Vol] 2.5 g/dL Normal 2.2-4.2 [facility] Comment on above: Performed By: #### L 501.9520, L503.7505, L500.4050 ####[facility] [address] [place], [address] Glucose [Mass/Vol] 447 mg/dL High 70-99 [facility] Comment on above: Performed By: #### L 501.9520, L503.7505, L500.4050 ####[facility] [address] [place], [address] Potassium [Moles/Vol] 5.2 mmol/L High 3.3-5.1 [facility] Comment on above: Performed By: #### L 501.9520, L503.7505, L500.4050 ####[facility] [address] [place], [address] Sodium [Moles/Vol] 137 mmol/L Normal 133-145 [facility] Comment on above: Performed By: #### L 501.9520, L503.7505, L500.4050 ####[facility] [address] [place], [address] T PROT 5.8 g/dL Low 5.9-8.4 [facility] Comment on above: Performed By: #### L 501.9520, L503.7505, L500.4050 ####[facility] [address] [place], [address] Urea nitrogen [Mass/Vol] 69 mg/dL High 4-19 [facility] Comment on above: Performed By: #### L 501.9520, L503.7505, L500.4050 ####[facility] [address] [place], [address] Consultation - Nephrologyon 04-19-2025 Consultation - Nephrology Normal [facility] D-Dimer Quantitative (DVT/PE )on 04-19-2025 D-DIMER QUANT 2.17 FEU/ug/m Invalid Interpretation Code 0.27-0.49 [facility] Comment on above: Result Comment: D-Di shyanne ELEVATED (>0.49): Additional studies and clinicalassessments are indicated to conclude diagnosis of:Deep Vein Thrombosis (DVT) or Pulmonary Embolism (PE)CRITICAL VALUE CALLED TO DELFIN ALBRIGHT04/19/25 0101 Lydia Villanueva.RESULTS READ BACK BY SAME. Performed By: #### L 509.7001, L300.8000 ####[facility] [address] [place], [place], [address] Emergency Department Summary on 04-19-2025 Emergency Department Summary Normal [facility] Eosinophil percentageOrdered By: Arnulfo Jose on 04-19-2025 Eosinophils/100 WBC (Bld) 1.0 % 0-5 [facility] Erythrocyte distribution wid th ratioOrdered By: Arnulfo Jose on 04-19-2025 Erythrocyte distribution width (RBC) [Ratio] 13.4 % 11.6-14.6 [facility] Erythrocyte distribution wid th standard deviationOrdered By: Arnulfo Jose on 04-19-2025 Erythrocyte distribution width (RBC) [Ratio] 46.1 fl High 35.1-43.9 [facility] Glomerular filtration rate ( GFR) estimation/1.73 sq m using serum, plasma, or whole bOrdered By: Arnulfo Jose on 04-19-2025 GFR/1.73 sq M.predicted among non-blacks MDRD (S/P/Bld) [Vol rate/Area] 23 mL/min/{1.73_m2} Low >[address] [facility] deOrdered By: Nancy Henson on 04-19-2025 Glucose [Mass/Vol] 437 mg/dL High 74-106 [facility] H AND P Exam - Hospitaliston 04-19-2025 H&P Exam - Hospitalist Normal [facility] Hematocrit Auto (Bld) [Volum e fraction]Ordered By: Arnulfo Jose on 04-19-2025 Hematocrit (Bld) [Volume fraction] 27.5 % Low 40-54 [facility] Hemoglobin A1con 04-19-2025 HbA1c (Bld) [Mass fraction] 7.1 % High <=5.6 [facility] Comment on above: Result Comment: Norm al < 5.7 % Prediabetic 5.7 - 6.4 % Diabetic >or= 6.5 % Please note range changes. Performed By: #### L 501.9985, L100.0100, L501.2300 ####[facility] [address] [place], [place], [address] Hemoglobin A1c percentageOrd ered By: Nancy Henson on 04-19-2025 HbA1c (Bld) [Mass fraction] 7.1 % High <5.7 [facility] Hemoglobin measurementOrdere d By: Arnulfo Jose on 04-19-2025 Hemoglobin (Bld) [Mass/Vol] 8.8 g/dL Low 13.0-16.5 [facility] Immature granulocytes/100 WB C Auto (Bld)Ordered By: Arnulfo Jose on 04-19-2025 Immature granulocytes/100 WBC (Bld) 0.500 % 0.0-0.9 [facility] Influenza virus A and B and SARS-CoV-2 (COVID-19) and Respiratory syncytial virus RNAOrdered By: Arnulfo Jose on 04-19-2025 SARS-CoV-2 (COVID-19) RNA ALICE+probe Ql (Unsp spec) [facility] Ketones Test strip Ql (U)Ord ered By: Nancy Henson on 04-19-2025 Ketones Ql (U) Negative Negative [facility] L499.0042on 04-19-2025 Trop T High Sen 385 ng/L Invalid Interpretation Code <=22 [facility] Comment on above: Result Comment: Crit ical Result(s) Called at 0636: by: BIPIN BROWNE. ??Results read back by same. Performed By: #### L 499.0042 ####[facility] [address] [place], [place], [address] L499.0043on 04-19-2025 Trop T High Sen 350 ng/L Invalid Interpretation Code <=22 [facility] Comment on above: Result Comment: Crit ical Result(s) Called at: 04/19/2025-10:51 by: Neal Fowler.??Results read back by same. Performed By: #### L 499.0043 ####[facility] [address] [place], [address] L501.4021on 04-19-2025 Trop T High Sen 394 ng/L Invalid Interpretation Code <=22 [facility] Comment on above: Result Comment: Crit ical Result(s) Called at 0511: by: BIPIN MEGHNA SILVERMAN.??Results read back by same. Performed By: #### L 501.4021 ####[facility] [address] [place], [address] L503.7505on 04-19-2025 Natriuretic peptide B (Bld) [Mass/Vol] 90573 pg/mL High <=1800 [facility] Comment on above: Result Comment: Hear t Failure Unlikely: < 300 pg/mLHeart Failure Likely< 50 Years: > 450 pg/mL50-75 Years: > 900 pg/mL>75 Years: > 1800 pg/mL Performed By: #### L 501.9520, L503.7505, L500.4050 ####[facility] [address] [place], [address] Natriuretic peptide B (Bld) [Mass/Vol] 22878 pg/mL High <=1800 [facility] Comment on above: Result Comment: Hear t Failure Unlikely: < 300 pg/mLHeart Failure Likely< 50 Years: > 450 pg/mL50-75 Years: > 900 pg/mL>75 Years: > 1800 pg/mL Performed By: #### L 501.5200, L500.2500, L100.0100, L503.7505 ####[facility] [address] [place], [address] L509.7001on 04-19-2025 Procalcitonin 0.10 ng/mL Normal <=0.10 [facility] Comment on above: Result [...] By: #### L 509.7001, L300.8000 ####[facility] [address] [place], [address] Lactic Acidon 04-19-2025 Lactate [Moles/Vol] 2.7 mmol/L Invalid Interpretation Code 0.0-2.0 [facility] Comment on above: Result Comment: Crit ical Result(s) Called at: 04/19/2025-10:35 by: Iraida.??Results read back by same. Performed By: #### L 148.6002 ####[facility] [address] [place], [address] Lactate [Moles/Vol] 4.8 mmol/L Invalid Interpretation Code 0.0-2.0 [facility] Comment on above: Order Comment: Y Result Comment: Crit ical Result(s) Called at 0448: by: BIPIN BROWNE. ??Results read back by same. Performed By: #### L [id number] ####[facility] [address] [place], [place], [address] Lung Scan Vent/Perfon 2024 Lung Scan Vent/Perf Normal [facility] M100.678on 04-19-2025 M100.678 SARS-CoV-2 (COVID 19) Negative INFLUENZA A Negative INFLUENZA B Negative RSV PCR Negative Normal [facility] Comment on above: Performed By: #### M 100.678 ####[facility] [address] [place], [place], [address] MCV (mean corpuscular volume ) determinationOrdered By: Arnulfo Jose on 04-19-2025 MCV (RBC) [Entitic vol] 93.9 fL 80-94 [facility] Magnesiumon 04-19-2025 Magnesium [Mass/Vol] 2.3 mg/dL High 1.5-2.2 [facility] Comment on above: Performed By: #### L 501.5200, L500.2500, L100.0100, L503.7505 ####[facility] [address] [place], [place], [address] Magnesium measurement (mass/ volume)Ordered By: Arnulfo Jose on 04-19-2025 Magnesium (Unsp spec) [Mass/Vol] 2.3 mg/dL High 1.5-2.2 [facility] Mean corpuscular hemoglobin (MCH) determinationOrdered By: Arnulfo Jose on 04-19-2025 MCH (RBC) [Entitic mass] 30.0 pg 27.0-32.0 [facility] Measurement, pHOrdered By: Nadeem Henson on 04-19-2025 pH (Unsp spec) 7.44 [pH] 7.35-7.45 [facility] pH (Unsp spec) 7.45 [pH] 7.35-7.45 [facility] Monocyte percentageOrdered B y: Arnulfo Jose on 04-19-2025 Monocytes/100 WBC (Bld) 5.7 % 0-10 [facility] Mucus LM Ql (Urine sed)Order ed By: Nancy Henson on 04-19-2025 Mucus Ql (Urine sed) 0 SEEN /hpf [facility] Natriuretic peptide.B prohor katja N-Terminal [Mass/volume] in Serum or PlasmaOrdered By: Nancy Henson on 04-19-2025 Natriuretic peptide.B prohormone N-Terminal [Mass/Vol] 38239 pg/mL High <1800 [facility] Natriuretic peptide.B prohor katja N-Terminal [Mass/volume] in Serum or PlasmaOrdered By: Arnulfo Jose on 04-19-2025 Natriuretic peptide.B prohormone N-Terminal [Mass/Vol] 44817 pg/mL High <1800 [facility] Neutrophil percentageOrdered By: Arnulfo Jose on 04-19-2025 Neutrophils/100 WBC (Bld) 82.3 % High 47-70 [facility] Nitrite Test strip Ql (U)Ord ered By: Nancy Henson on 04-19-2025 Nitrite Ql (U) Negative Negative [facility] No Panel InformationOrdered By: Nancy Henson on 04-19-2025 ART [facility] L Radial [facility] Not entered [facility] AIRVO [facility] AIRVO 50L 50% [facility] ART [facility] L Radial [facility] Not entered [facility] HFNC [facility] Phosphoruson 04-19-2025 Phosphate [Mass/Vol] 4.0 mg/dL Normal 2.7-4.5 [facility] Comment on above: Performed By: #### L 501.9985, L100.0100, L501.2300 ####[facility] [address] [place], [address] Platelet countOrdered By: Stephenie Jose on 04-19-2025 Platelets (Bld) [#/Vol] 289 10*3/uL 150-450 [facility] Potassium measurement (mass/ volume)Ordered By: Arnulfo Jose on 04-19-2025 Potassium (Unsp spec) [Mass/Vol] 5.9 mmol/L High 3.3-5.1 [facility] Procalcitonin [Mass/volume] in Serum or Plasma by ImmunoassayOrdered By: Arnulfo Jose on 04-19-2025 Procalcitonin IA [Mass/Vol] 0.10 ng/mL <0.11 [facility] Protein Test strip Ql (U)Ord ered By: Nancy Henson on 04-19-2025 Protein Ql (U) 30 mg/dl High Negative [facility] RBC Auto (Bld) [#/Vol]Ordere d By: Arnulfo Jose on 04-19-2025 RBC (Bld) [#/Vol] 2.93 10*6/uL Low 4.6-6.2 [facility] Serum creatinine measurement (mass/volume)Ordered By: Arnulfo Jose on 04-19-2025 Creatinine [Mass/Vol] 2.73 mg/dL High 0.70-1.20 [facility] Serum glucose measurement (m ass/volume)Ordered By: Arnulfo Jose on 04-19-2025 Glucose [Mass/Vol] 406 mg/dL High 70-99 [facility] Serum or plasma calcium nikkie urement (mass/volume)Ordered By: Arnulfo Jose on 04-19-2025 Calcium [Mass/Vol] 8.6 mg/dL 7.6-11.0 [facility] Serum or plasma urea nitroge n measurement (mass/volume)Ordered By: Arnulfo Jose on 04-19-2025 Urea nitrogen [Mass/Vol] 65 mg/dL High 4-19 [facility] Sodium levelOrdered By: Tyree Jose on 04-19-2025 Sodium [Moles/Vol] 136 mmol/L 133-145 [facility] Squamous epithelial cells de tection in urine sediment by light microscopyOrdered By: Nancy Henson on 04-19-2025 Epithelial cells.squamous LM Ql (Urine sed) 0 SEEN /hpf 0-5 [facility] TSH DL <= 0.005 mIU/L QnOrde red By: Nancy Henson on 04-19-2025 TSH Qn 1.730 uIU/mL 0.300-4.200 [facility] Thyroid Stim Hormone (TSH)on 04-19-2025 TSH 1.730 uIU/mL Normal 0.300-4.200 [facility] Comment on above: Performed By: #### L 501.9520, L503.7505, L500.4050 ####[facility] [address] [place], [address] Total carbon dioxide measure mentOrdered By: Nancy Henson on 04-19-2025 CO2 [Moles/Vol] 23 mmol/L [facility] CO2 [Moles/Vol] 23 mmol/L [facility] Troponin T.cardiac [Mass/vol ume] in Serum or Plasma by High sensitivity methodOrdered By: Nancy Henson on 04-19-2025 Troponin T.cardiac High sensitivity method [Mass/Vol] 350 ng/L High <22 [facility] Troponin T.cardiac High sensitivity method [Mass/Vol] 385 ng/L High <22 [facility] Troponin T.cardiac High sensitivity method [Mass/Vol] 394 ng/L High <22 [facility] Type AND Screenon 04-19-2025 Ab SCREEN GEL Negative Normal [facility] Comment on above: Order Comment: A Performed By: #### B TS ####[facility] [address] [place], [address] Urinalysis, Completeon 04-19 BACTERIA 0 SEEN Normal None Seen [facility] Comment on above: Order Comment: CLEAN CATCH Performed By: #### L 400.0001 ####[facility] [address] [place], [address] EPI,SQUAMOUS 0 SEEN Normal 0-5 [facility] Comment on above: Order Comment: CLEAN CATCH Performed By: #### L 400.0001 ####[facility] [address] [place], [address] Mucus Ql (Urine sed) [address] [facility] Comment on above: Order Comment: CLEAN CATCH Performed By: #### L 400.0001 ####[facility] [address] [place], [address] RBC 0 SEEN Normal 0-5 [facility] Comment on above: Order Comment: CLEAN CATCH Performed By: #### L 400.0001 ####[facility] [address] [place], [address] WBC 0 SEEN Normal 0-5 [facility] Comment on above: Order Comment: CLEAN CATCH Performed By: #### L 400.0001 ####[facility] [address] [place], [address] Urine clarityOrdered By: Saravanan Henson on 04-19-2025 Clarity (U) Clear Clear [facility] Urine color determinationOrd ered By: Nancy Henson on 04-19-2025 Color (U) Yellow Yellow [facility] Urine glucose detectionOrder ed By: Nancy Henson on 04-19-2025 Glucose Ql (U) 250 mg/dl High Normal [facility] Urine leukocyte esterase det ection by dipstickOrdered By: Nancy Henson on 04-19-2025 Leukocyte esterase Test strip Ql (U) Negative Negative [facility] Urine pHOrdered By: Nancy brooks on 04-19-2025 pH (U) 6.0 [pH] 5.0 - 8.0 [facility] Urine sediment bacteria coun t by microscopy (number/high power field)Ordered By: Nancy Henson on 04-19-2025 Bacteria LM.HPF (Urine sed) [#/Area] 0 /[HPF] None Seen [facility] Urine specific gravity measu rementOrdered By: Nancy Henson on 04-19-2025 Specific gravity (U) [Rel density] 1.015 1.002-1.030 [facility] Urine urobilinogen measureme ntOrdered By: Nancy Henson on 04-19-2025 Urobilinogen Ql (U) Normal mg/dl Normal [facility] Venous Duplex US - Karin Extre mon 04-19-2025 Venous Duplex US - Karin Extrem Normal [facility] Venous duplex ultrasound rep ortOrdered By: Oracio Payan on 04-19-2025 US Vein [facility] Other Phone: White blood cell (WBC) count Ordered By: Arnulfo Jose on 04-19-2025 WBC (Bld) [#/Vol] 14.0 10*3/uL High 4.4-11.0 [facility] White blood cell countOrdere d By: Nancy Henson on 04-19-2025 White blood cell count 0 SEEN /hpf 0-5 [facility] CBC W/Diff, Automatedon 04-01 Absolute Neut Normal 2.0-7.7 [facility] Comment on above: Result Comment: Canc elled via OM: Order cancelled - Patient discharged Performed By: #### L 100.0100 ####[facility] [address] [place], [address] HCT Normal 40-54 [facility] Comment on above: Result Comment: Canc elled via OM: Order cancelled - Patient discharged Performed By: #### L 100.0100 ####[facility] [address] [place], [address] HGB Normal 13.0-16.5 [facility] Comment on above: Result Comment: Canc elled via OM: Order cancelled - Patient discharged Performed By: #### L 100.0100 ####[facility] [address] [place], [address] MCH Normal 27.0-32.0 [facility] Comment on above: Result Comment: Canc elled via OM: Order cancelled - Patient discharged Performed By: #### L 100.0100 ####[facility] [address] [place], [address] MCHC Normal 32-36 [facility] Comment on above: Result Comment: Canc elled via OM: Order cancelled - Patient discharged Performed By: #### L 100.0100 ####[facility] [address] [place], [address] MCV Normal 80-94 [facility] Comment on above: Result Comment: Canc elled via OM: Order cancelled - Patient discharged Performed By: #### L 100.0100 ####[facility] [address] [place], [address] NEUT% Normal 47-70 [facility] Comment on above: Result Comment: Canc elled via OM: Order cancelled - Patient discharged Performed By: #### L 100.0100 ####[facility] [address] [place], [address] PLT Normal 150-450 [facility] Comment on above: Result Comment: Canc elled via OM: Order cancelled - Patient discharged Performed By: #### L 100.0100 ####[facility] [address] [place], [address] RBC Normal 4.6-6.2 [facility] Comment on above: Result Comment: Canc elled via OM: Order cancelled - Patient discharged Performed By: #### L 100.0100 ####[facility] [address] [place], [address] RDW CV Normal 11.6-14.6 [facility] Comment on above: Result Comment: Canc elled via OM: Order cancelled - Patient discharged Performed By: #### L 100.0100 ####[facility] [address] [place], [address] RDW SD Normal 35.1-43.9 [facility] Comment on above: Result Comment: Canc elled via OM: Order cancelled - Patient discharged Performed By: #### L 100.0100 ####[facility] [address] [place], [address] WBC Normal 4.4-11.0 [facility] Comment on above: Result Comment: Canc elled via OM: Order cancelled - Patient discharged Performed By: #### L 100.0100 ####[facility] [address] [place], [address] Absolute lymphocyte countOrd ered By: Grace Arnold on 04-10-2025 Lymphocytes Auto (Unsp spec) [#/Vol] 1.09 10*3/uL 0.83-4.51 [facility] Absolute neutrophil countOrd ered By: Grace Arnold on 04-10-2025 Neutrophils (Bld) [#/Vol] 9.6 10*3/uL High 2.0-7.7 [facility] Anion gap in Serum or Plasma Ordered By: Grace Arnold on 04-10-2025 Anion gap [Moles/Vol] 13 mmol/L 5-15 [facility] Automated lymphocyte count a s percentage of total leukocytesOrdered By: Grace Arnold on 04-10-2025 Lymphocytes/100 WBC Auto (Unsp spec) 9.4 % Low 19-41 [facility] BUN/creatinine ratioOrdered By: Grace Arnold on 04-10-2025 Urea nitrogen/Creatinine [Mass ratio] 22.8 mg/mg High 10-20 [facility] Basic Metabolic Profile (BMP )on 04-10-2025 BUN/CRE 22.8 RATIO High 10-20 [facility] Comment on above: Performed By: #### L 500.2500 ####[facility] [address] [place], [address] Calcium [Mass/Vol] 8.5 mg/dL Normal 7.6-11.0 [facility] Comment on above: Performed By: #### L 500.2500 ####[facility] [address] [place], [address] Chloride [Moles/Vol] 101 mmol/L Normal 98-108 [facility] Comment on above: Performed By: #### L 500.2500 ####[facility] [address] [place], [address] CO2 [Moles/Vol] 22.6 mmol/L Normal 21.0-32.0 [facility] Comment on above: Performed By: #### L 500.2500 ####[facility] [address] [place], [address] Creatinine [Mass/Vol] 3.48 mg/dL High 0.70-1.20 [facility] Comment on above: Performed By: #### L 500.2500 ####[facility] [address] [place], [address] ECRCL 15.24 ml/min Low 50-250 [facility] Comment on above: Performed By: #### L 500.2500 ####[facility] [address] [place], [address] GAP 13 Normal 5-15 [facility] Comment on above: Performed By: #### L 500.2500 ####[facility] [address] [place], [address] GFR/1.73 sq M.predicted among non-blacks MDRD (S/P/Bld) [Vol rate/Area] 17 mL/min/{1.73_m2} Low >[address] [facility] Comment on above: Result Comment: mL/m in/1.73m2 CKD-EPI Creatinine Equation (2020) Performed By: #### L 500.2500 ####[facility] [address] [place], [address] Glucose [Mass/Vol] 287 mg/dL High 70-99 [facility] Comment on above: Performed By: #### L 500.2500 ####[facility] [address] [place], [address] Potassium [Moles/Vol] 4.2 mmol/L Normal 3.3-5.1 [facility] Comment on above: Performed By: #### L 500.2500 ####[facility] [address] [place], [address] Sodium [Moles/Vol] 137 mmol/L Normal 133-145 [facility] Comment on above: Performed By: #### L 500.2500 ####[facility] [address] [place], [address] Urea nitrogen [Mass/Vol] 79 mg/dL High 4-19 [facility] Comment on above: Performed By: #### L 500.2500 ####[facility] [address] [place], [address] Basophil percentageOrdered B y: Grace Arnold on 04-10-2025 Basophils/100 WBC (Bld) 0.1 % 0-1 [facility] Bedside Glucoseon 04-10-2025 FINGERSTICK GLU 223 mg/dL High 74-106 [facility] Comment on above: Result Comment: ADITI ESCOBEDO OF PATIENT CARE PER NURSING PROTOCOL Performed By: #### L 501.080 ####[facility] [address] [place], [address] FINGERSTICK GLU 274 mg/dL High 74-106 [facility] Comment on above: Result Comment: ADITI ESCOBEDO OF PATIENT CARE PER NURSING PROTOCOL Performed By: #### L 501.080 ####[facility] [address] [place], [address] CBC W/Diff, Automatedon 06-1 0-2025 Absolute Lymph 1.09 X10 3/uL Normal 0.83-4.51 [facility] Comment on above: Performed By: #### L 100.0100 ####[facility] [address] [place], [address] Absolute Neut 9.6 X10 3/uL High 2.0-7.7 [facility] Comment on above: Performed By: #### L 100.0100 ####[facility] [address] [place], [address] Basophils/100 WBC (Bld) 0.1 % Normal 0-1 [facility] Comment on above: Performed By: #### L 100.0100 ####[facility] [address] [place], [address] Eosinophils/100 WBC (Bld) 0.1 % Normal 0-5 [facility] Comment on above: Performed By: #### L 100.0100 ####[facility] [address] [place], [address] Erythrocyte distribution width (RBC) [Ratio] 13.6 % Normal 11.6-14.6 [facility] Comment on above: Performed By: #### L 100.0100 ####[facility] [address] [place], [address] Hematocrit (Bld) [Volume fraction] 26.0 % Low 40-54 [facility] Comment on above: Performed By: #### L 100.0100 ####[facility] [address] [place], [address] Hemoglobin (Bld) [Mass/Vol] 8.6 g/dL Low 13.0-16.5 [facility] Comment on above: Performed By: #### L 100.0100 ####[facility] [address] [place], [address] IG% 0.800 Normal 0.0-0.9 [facility] Comment on above: Result Comment: IG% - Immature Granulocytes (promyelocytes, myelocytes andmetamyelocytes) > 1% indicates that a LEFT SHIFT is Present. Performed By: #### L 100.0100 ####[facility] [address] [place], [address] Lymphocytes/100 WBC (Bld) 9.4 % Low 19-41 [facility] Comment on above: Performed By: #### L 100.0100 ####[facility] [address] [place], [address] MCH (RBC) [Entitic mass] 30.2 pg Normal 27.0-32.0 [facility] Comment on above: Performed By: #### L 100.0100 ####[facility] [address] [place], [address] MCHC (RBC) [Mass/Vol] 33.1 g/dL Normal 32-36 [facility] Comment on above: Performed By: #### L 100.0100 ####[facility] [address] [place], [address] MCV (RBC) [Entitic vol] 91.2 fL Normal 80-94 [facility] Comment on above: Performed By: #### L 100.0100 ####[facility] [address] [place], [address] Monocytes/100 WBC (Bld) 7.0 % Normal 0-10 [facility] Comment on above: Performed By: #### L 100.0100 ####[facility] [address] [place], [address] Neutrophils/100 WBC (Bld) 82.6 % High 47-70 [facility] Comment on above: Performed By: #### L 100.0100 ####[facility] [address] [place], [address] Nucleated RBC (Bld) [#/Vol] 0 10*3/uL Normal 0-5 [facility] Comment on above: Performed By: #### L 100.0100 ####[facility] [address] [place], [address] Platelet mean volume (Bld) [Entitic vol] 12.4 fL High 6.2-12.0 [facility] Comment on above: Performed By: #### L 100.0100 ####[facility] [address] [place], [address] Platelets (Bld) [#/Vol] 193 10*3/uL Normal 150-450 [facility] Comment on above: Performed By: #### L 100.0100 ####[facility] [address] [place], [address] RBC (Bld) [#/Vol] 2.85 10*6/uL Low 4.6-6.2 [facility] Comment on above: Performed By: #### L 100.0100 ####[facility] [address] [place], [address] RDW SD 45.1 fl High 35.1-43.9 [facility] Comment on above: Performed By: #### L 100.0100 ####[facility] [address] [place], [address] WBC (Bld) [#/Vol] 11.6 10*3/uL High 4.4-11.0 [facility] Comment on above: Performed By: #### L 100.0100 ####[facility] [address] [place], [address] Carbon dioxide, total [Moles /volume] in Central venous bloodOrdered By: Grace Arnold on 04-10-2025 CO2 [Moles/Vol] 22.6 mmol/L 21.0-32.0 [facility] Chloride assayOrdered By: Na na Florentino on 04-10-2025 Chloride [Moles/Vol] 101 mmol/L 98-108 [facility] Discharge Instructionon 04-01 Discharge Instruction Normal [facility] Eosinophil percentageOrdered By: Grace Arnold on 04-10-2025 Eosinophils/100 WBC (Bld) 0.1 % 0-5 [facility] Erythrocyte distribution wid th ratioOrdered By: Grace Arnold on 04-10-2025 Erythrocyte distribution width (RBC) [Ratio] 13.6 % 11.6-14.6 [facility] Erythrocyte distribution wid th standard deviationOrdered By: Grace Arnold on 04-10-2025 Erythrocyte distribution width (RBC) [Ratio] 45.1 fl High 35.1-43.9 [facility] Glomerular filtration rate ( GFR) estimation/1.73 sq m using serum, plasma, or whole bOrdered By: Grace Arnold on 04-10-2025 GFR/1.73 sq M.predicted among non-blacks MDRD (S/P/Bld) [Vol rate/Area] 17 mL/min/{1.73_m2} Low >[address] [facility] Comment on above: mL/min/1.73m2 CKD-EP I Creatinine Equation (2020) Glucose measurement at bedsi deOrdered By: Grace Arnold on 04-10-2025 Glucose [Mass/Vol] 223 mg/dL High 74-106 [facility] Comment on above: MANAGEMENT OF PATIEN T CARE PER NURSING PROTOCOL Hematocrit Auto (Bld) [Volum e fraction]Ordered By: Grace Arnold on 04-10-2025 Hematocrit (Bld) [Volume fraction] 26.0 % Low 40-54 [facility] Hemoglobin measurementOrdere d By: Grace Arnold on 04-10-2025 Hemoglobin (Bld) [Mass/Vol] 8.6 g/dL Low 13.0-16.5 [facility] Immature granulocytes/100 WB C Auto (Bld)Ordered By: Grace Arnold on 04-10-2025 Immature granulocytes/100 WBC (Bld) 0.800 % 0.0-0.9 [facility] Comment on above: IG% - Immature Granu locytes (promyelocytes, myelocytes and metamyelocytes) > 1% indicates that a LEFT SHIFT is Present. MCV (mean corpuscular volume ) determinationOrdered By: Grace Arnold on 04-10-2025 MCV (RBC) [Entitic vol] 91.2 fL 80-94 [facility] Mean corpuscular hemoglobin (MCH) determinationOrdered By: Grace Arnold on 04-10-2025 MCH (RBC) [Entitic mass] 30.2 pg 27.0-32.0 [facility] Mean corpuscular hemoglobin concentration (MCHC) determinationOrdered By: Grace Arnold on 04-10-2025 MCHC (RBC) [Mass/Vol] 33.1 g/dL 32-36 [facility] Mean platelet volume determi nationOrdered By: Grace Arnold on 04-10-2025 Platelet mean volume (Bld) [Entitic vol] 12.4 fL High 6.2-12.0 [facility] Monocyte percentageOrdered B y: Grace Arnold on 04-10-2025 Monocytes/100 WBC (Bld) 7.0 % 0-10 [facility] Neutrophil percentageOrdered By: Grace Arnold on 04-10-2025 Neutrophils/100 WBC (Bld) 82.6 % High 47-70 [facility] Nucleated red blood cell per centageOrdered By: Grace Arnold on 04-10-2025 Nucleated RBC/100 WBC (Bld) [Ratio] 0 % 0-5 [facility] Platelet countOrdered By: Kesha Arnold on 04-10-2025 Platelets (Bld) [#/Vol] 193 10*3/uL 150-450 [facility] Potassium measurement (mass/ volume)Ordered By: Grace Arnold on 04-10-2025 Potassium (Unsp spec) [Mass/Vol] 4.2 mmol/L 3.3-5.1 [facility] RBC Auto (Bld) [#/Vol]Ordere d By: Grace Florentino on 04-10-2025 RBC (Bld) [#/Vol] 2.85 10*6/uL Low 4.6-6.2 [facility] Serum creatinine measurement (mass/volume)Ordered By: Grace Arnold on 04-10-2025 Creatinine [Mass/Vol] 3.48 mg/dL High 0.70-1.20 [facility] Serum glucose measurement (m ass/volume)Ordered By: Grace Arnold on 04-10-2025 Glucose [Mass/Vol] 287 mg/dL High 70-99 [facility] Serum or plasma calcium nikkie urement (mass/volume)Ordered By: Grace Arnold on 04-10-2025 Calcium [Mass/Vol] 8.5 mg/dL 7.6-11.0 [facility] Serum or plasma urea nitroge n measurement (mass/volume)Ordered By: Grace Arnold on 04-10-2025 Urea nitrogen [Mass/Vol] 79 mg/dL High 4-19 [facility] Sodium levelOrdered By: Grace Arnold on 04-10-2025 Sodium [Moles/Vol] 137 mmol/L 133-145 [facility] White blood cell (WBC) count Ordered By: Grace Arnold on 04-10-2025 WBC (Bld) [#/Vol] 11.6 10*3/uL High 4.4-11.0 [facility] ANCAon 04-09-2025 Atypical pANCA <1:20 Normal Neg:<1:20 [facility] Comment on above: Result Comment: The atypical pANCA pattern has been observed in asignificant percentage of patients with ulcerative colitis,primary sclerosing cholangitis and autoimmune hepatitis.Performed at: - [facility] [id number] Director: Todd Anderson PhD, Phone: [phone] Performed By: #### L 3218.1200 ####[facility] [address] [place], [place], [id number] Cytoplasmic Ab <1:20 Normal Neg:<1:20 [facility] Comment on above: Performed By: #### L 3300.1200 ####[facility] [address] [place], [place], [id number] Perinuclear Ab. <1:20 Normal Neg:<1:20 [facility] Comment on above: Result Comment: The presence of positive fluorescence exhibiting P-ANCA orC-ANCA patterns alone is not specific for the diagnosis ofWegener's Granulomatosis (WG) or microscopic polyangiitis.Decisions about treatment should not be based solely onANCA IFA results. The [employer] Consensusrecommends follow up testing of positive sera with both TN-3 and MPO-ANCA enzyme immunoassays. As many as 5% serumsamples are positive only by EIA. Ref. AM J Clin Rrhwzy7737;111:507-513. Performed By: #### L 3300.1200 ####[facility] [address] [place], [place], [id number] Anti-Glomerular Basement Mem bon 04-09-2025 ANTI-GLOM BM Ab < 0.2 Normal 0.0-0.9 [facility] Comment on above: Result Comment: Perf ormed at: BN - [facility] [address] [id number] Director: Mignon Taylor MD, Phone: [phone] Performed By: #### L 6435.5378 ####[facility] [address] [place], [place], [id number] Basic Metabolic Profile (BMP )on 04-09-2025 BUN/CRE 21.8 RATIO High 10-20 [facility] Comment on above: Performed By: #### L 500.2500 ####[facility] [address] [place], [address] Calcium [Mass/Vol] 8.5 mg/dL Normal 7.6-11.0 [facility] Comment on above: Performed By: #### L 500.2500 ####[facility] [address] [place], [address] Chloride [Moles/Vol] 104 mmol/L Normal 98-108 [facility] Comment on above: Performed By: #### L 500.2500 ####[facility] [address] [place], [address] CO2 [Moles/Vol] 21.6 mmol/L Normal 21.0-32.0 [facility] Comment on above: Performed By: #### L 500.2500 ####[facility] [address] [place], [address] Creatinine [Mass/Vol] 3.42 mg/dL High 0.70-1.20 [facility] Comment on above: Performed By: #### L 500.2500 ####[facility] [address] [place], [address] ECRCL 15.55 ml/min Low 50-250 [facility] Comment on above: Performed By: #### L 500.2500 ####[facility] [address] [place], [address] GAP 15 Normal 5-15 [facility] Comment on above: Performed By: #### L 500.2500 ####[facility] [address] [place], [address] GFR/1.73 sq M.predicted among non-blacks MDRD (S/P/Bld) [Vol rate/Area] 17 mL/min/{1.73_m2} Low >[address] [facility] Comment on above: Result Comment: mL/m in/1.73m2 CKD-EPI Creatinine Equation (2020) Performed By: #### L 500.2500 ####[facility] [address] [place], [address] Glucose [Mass/Vol] 146 mg/dL High 70-99 [facility] Comment on above: Performed By: #### L 500.2500 ####[facility] [address] [place], [address] Potassium [Moles/Vol] 3.4 mmol/L Normal 3.3-5.1 [facility] Comment on above: Performed By: #### L 500.2500 ####[facility] [address] [place], [address] Sodium [Moles/Vol] 140 mmol/L Normal 133-145 [facility] Comment on above: Performed By: #### L 500.2500 ####[facility] [address] [place], [address] Urea nitrogen [Mass/Vol] 74 mg/dL High 4-19 [facility] Comment on above: Performed By: #### L 500.2500 ####[facility] [address] [place], [address] Bedside Glucoseon 04-09-2025 FINGERSTICK GLU 423 mg/dL High 74-106 [facility] Comment on above: Result Comment: ADITI GEMENT OF PATIENT CARE PER NURSING PROTOCOL Performed By: #### L 501.080 ####[facility] [address] [place], [address] FINGERSTICK GLU 217 mg/dL High 74-106 [facility] Comment on above: Result Comment: ADITI GEMENT OF PATIENT CARE PER NURSING PROTOCOL Performed By: #### L 501.080 ####[facility] [address] [place], [address] FINGERSTICK GLU 146 mg/dL High 74-106 [facility] Comment on above: Result Comment: ADITI GEMENT OF PATIENT CARE PER NURSING PROTOCOL Performed By: #### L 501.080 ####[facility] [address] [place], [address] FINGERSTICK GLU 141 mg/dL High 74-106 [facility] Comment on above: Result Comment: ADITI GEMENT OF PATIENT CARE PER NURSING PROTOCOL Performed By: #### L 501.080 ####[facility] [address] [place], [address] FINGERSTICK GLU 443 mg/dL High 74-106 [facility] Comment on above: Result Comment: ADITI GEMENT OF PATIENT CARE PER NURSING PROTOCOL Performed By: #### L 501.080 ####[facility] [address] [place], [address] FINGERSTICK GLU 312 mg/dL High 74-106 [facility] Comment on above: Result Comment: ADITI GEMENT OF PATIENT CARE PER NURSING PROTOCOL Performed By: #### L 501.080 ####[facility] [address] [place], [address] FINGERSTICK GLU 475 mg/dL Invalid Interpretation Code 74-106 [facility] Comment on above: Result Comment: ADITI GEMENT OF PATIENT CARE PER NURSING PROTOCOL Performed By: #### L 501.080 ####[facility] [address] [place], [address] CBC W/Diff, Automatedon 06-0 9-2024 Absolute Lymph 1.84 X10 3/uL Normal 0.83-4.51 [facility] Comment on above: Performed By: #### L 100.0100 ####[facility] [address] [place], [address] Absolute Neut 10.1 X10 3/uL High 2.0-7.7 [facility] Comment on above: Performed By: #### L 100.0100 ####[facility] [address] [place], [address] Basophils/100 WBC (Bld) 0.1 % Normal 0-1 [facility] Comment on above: Performed By: #### L 100.0100 ####[facility] [address] [place], [address] Eosinophils/100 WBC (Bld) 0.1 % Normal 0-5 [facility] Comment on above: Performed By: #### L 100.0100 ####[facility] [address] [place], [address] Erythrocyte distribution width (RBC) [Ratio] 14.0 % Normal 11.6-14.6 [facility] Comment on above: Performed By: #### L 100.0100 ####[facility] [address] [place], [address] Hematocrit (Bld) [Volume fraction] 25.5 % Low 40-54 [facility] Comment on above: Performed By: #### L 100.0100 ####[facility] [address] [place], [address] Hemoglobin (Bld) [Mass/Vol] 8.7 g/dL Low 13.0-16.5 [facility] Comment on above: Performed By: #### L 100.0100 ####[facility] [address] [place], [address] IG% 0.700 Normal 0.0-0.9 [facility] Comment on above: Result Comment: IG% - Immature Granulocytes (promyelocytes, myelocytes andmetamyelocytes) > 1% indicates that a LEFT SHIFT is Present. Performed By: #### L 100.0100 ####[facility] [address] [place], [address] Lymphocytes/100 WBC (Bld) 14.1 % Low 19-41 [facility] Comment on above: Performed By: #### L 100.0100 ####[facility] [address] [place], [address] MCH (RBC) [Entitic mass] 30.2 pg Normal 27.0-32.0 [facility] Comment on above: Performed By: #### L 100.0100 ####[facility] [address] [place], [address] MCHC (RBC) [Mass/Vol] 34.1 g/dL Normal 32-36 [facility] Comment on above: Performed By: #### L 100.0100 ####[facility] [address] [place], [address] MCV (RBC) [Entitic vol] 88.5 fL Normal 80-94 [facility] Comment on above: Performed By: #### L 100.0100 ####[facility] [address] [place], [address] Monocytes/100 WBC (Bld) 7.4 % Normal 0-10 [facility] Comment on above: Performed By: #### L 100.0100 ####[facility] [address] [place], [address] Neutrophils/100 WBC (Bld) 77.6 % High 47-70 [facility] Comment on above: Performed By: #### L 100.0100 ####[facility] [address] [place], [address] Nucleated RBC (Bld) [#/Vol] 0 10*3/uL Normal 0-5 [facility] Comment on above: Performed By: #### L 100.0100 ####[facility] [address] [place], [address] Platelet mean volume (Bld) [Entitic vol] 12.0 fL Normal 6.2-12.0 [facility] Comment on above: Performed By: #### L 100.0100 ####[facility] [address] [place], [address] Platelets (Bld) [#/Vol] 191 10*3/uL Normal 150-450 [facility] Comment on above: Performed By: #### L 100.0100 ####[facility] [address] [place], [address] RBC (Bld) [#/Vol] 2.88 10*6/uL Low 4.6-6.2 [facility] Comment on above: Performed By: #### L 100.0100 ####[facility] [address] [place], [address] RDW SD 45.6 fl High 35.1-43.9 [facility] Comment on above: Performed By: #### L 100.0100 ####[facility] [address] [place], [address] WBC (Bld) [#/Vol] 13.0 10*3/uL High 4.4-11.0 [facility] Comment on above: Performed By: #### L 100.0100 ####[facility] [address] [place], [address] Electrocardiogram reportOrde red By: Barbie Martin on 04-09-2025 EKG study [facility] [address] [place] [address] 12 Lead EKG 04/04/252111 MR#: [id number] Acct: [id number] Name: ENOC ARMANDO Rep #:[id number] : 1945 79 From: Barbie black MD Attending Dr: Dr. Grace Arnold MD Status: ADM IN Ordering Dr: Grace Arnold MD Date: 04/04/25 Location: [facility] Sex: M C Admitted: 04/03/25 [...] UNCONFIRMED Confirmed by MINERVA MARTIN MD ([id number]), art editor BLANCO BOCANEGRA ([id number]) on04/09/2025 7:17:16 AM Referred By: Confirmed By: MINERVA MARTIN MD 04/09/25716 Date _ Barbie Martin MD CC: Dr. Ryley Jeter MD; Dr. Grace Arnold MD ~ Signed [facility] Work Phone: EKG study [facility] [address] [place] [address] 12 Lead EKG 04/04/252111 MR#: [id number] Acct: [id number] Name: ENOC ARMANDO Rep #:[id number] : 1945 79 From: Barbie black MD Attending Dr: Dr. Grace Arnold MD Status: ADM IN Ordering Dr: Grace Arnold MD Date: 04/04/25 Location: [facility] Sex: M C Admitted: 04/03/25 [...] UNCONFIRMED Confirmed by MINERVA MARTIN MD ([id number]), art editor BLANCO BOCANEGRA ([id number]) on04/09/2025 7:17:37 AM Referred By: Confirmed By: MINERVA MARTIN MD 04/09/25716 Date _ Barbie Martin MD CC: Dr. Ryley Jeter MD; Dr. Grace Arnold MD ~ Signed [facility] Work Phone: [phone] EKG study [facility] [address] [place] [address] 12 Lead EKG 04/04/25 2109 MR#: [id number] Acct: [id number] Name: ENOC ARMANDO Rep #:[id number] : 1945 79 From: Barbie black MD Attending Dr: Dr. Grace Arnold MD Status: ADM IN Ordering Dr: Grace Arnold MD Date: 04/04/25 Location: [facility] Sex: M C Admitted: 04/03/25 [...] available Confirmed by VERONICA URIBE, MINERVA ([id number]), art editor BLANCO BOCANEGRA ([id number]) on04/09/2025 7:17:54 AM Referred By: Confirmed By: MINERVA MARTIN MD 04/09/25 0717 Date _ Barbie Martin MD CC: Dr. Ryely Jeter MD; Dr. Grace Arnold MD ~ Signed [facility] Work Phone: [phone] EKG study [facility] [address] [place] [address] 12 Lead EKG 04/03/25 0005 MR#: [id number] Acct: [id number] Name: ARMANDOENOC E Rep #:[id number] : 1945 79 From: Barbie black MD [...] Abnormal ECG Confirmed by VERONICA URIBE, MINERVA ([id number]), art editor BLANCO BOCANEGRA ([id number]) on04/09/2025 7:03:07 AM Referred By: Confirmed By: MINERVA MARTIN MD 04/09/25702 Date _ Barbie Martin MD CC: Dr. Ryley Jeter MD; Dr. Jose Moore MD; Dr. John Brandon DO ~ Signed [facility] Work Phone: EKG study [facility] [address] [place] [address] 12 Lead EKG 04/05/25 1204 MR#: [id number] Acct: [id number] Name: ENOC ARMANDO Rep #:[id number] : 1945 79 From: Barbie black MD [...] UNCONFIRMED Confirmed by VERONICA URIBE, MINERVA ([id number]), art editor BLANCO BOCANEGRA ([id number]) on04/09/2025 6:57:50 AM Referred By: FLORENTINO Confirmed By: MINERVA MARTIN MD 04/09/2557 Date _ Barbie Martin MD CC: Dr. Ryley Jeter MD; Dr. Grace Arnold MD; Dr. Jose Moore MD ~ Signed [facility] Work Phone: Gram Stainon 04-09-2025 GS Acceptable Specimen? Yes (<25 Epithelial cells per/lpf) Gram Stain 2+ Yeast Like Organisms 2+ Gram positive cocci 1+ Gram positive rods Normal [facility] Comment on above: Performed By: #### M 100.2000, M100.2400 ####[facility] [address] [address] [place], [place], [address] Stool Occult Blood iFOBon STOB Positive Normal [facility] Comment on above: Performed By: #### M 100.7900 ####[facility] [address] [place], [address] Stool gastrointestinal hemog lobin detection by immunologic methodOrdered By: Jose Moore on 04-09-2025 Lower GI hemoglobin IA Ql (Stl) Positive Abnormal [facility] BRCon 04-08-2025 RC Normal Neg [facility] Comment on above: Result Comment: [id number] AP RC TRANSFUSED 04/08/25 1032 Performed By: #### B , BR ####[facility] [address] [facility] [place] [place], [address] Basic Metabolic Profile (BMP )on 04-08-2025 BUN/CRE 20.8 RATIO High 10-20 [facility] Comment on above: Performed By: #### L 500.2500 ####[facility] [address] [place], [address] Calcium [Mass/Vol] 8.5 mg/dL Normal 7.6-11.0 [facility] Comment on above: Performed By: #### L 500.2500 ####[facility] [address] [place], [address] Chloride [Moles/Vol] 100 mmol/L Normal 98-108 [facility] Comment on above: Performed By: #### L 500.2500 ####[facility] [address] [place], [address] CO2 [Moles/Vol] 20.3 mmol/L Low 21.0-32.0 [facility] Comment on above: Performed By: #### L 500.2500 ####[facility] [address] [place], [address] Creatinine [Mass/Vol] 2.97 mg/dL High 0.70-1.20 [facility] Comment on above: Performed By: #### L 500.2500 ####[facility] [address] [place], [address] ECRCL 16.83 ml/min Low 50-250 [facility] Comment on above: Performed By: #### L 500.2500 ####[facility] [address] [place], [address] GAP 16 High 5-15 [facility] Comment on above: Performed By: #### L 500.2500 ####[facility] [address] [place], [address] GFR/1.73 sq M.predicted among non-blacks MDRD (S/P/Bld) [Vol rate/Area] 20 mL/min/{1.73_m2} Low >[address] [facility] Comment on above: Result Comment: mL/m in/1.73m2 CKD-EPI Creatinine Equation (2020) Performed By: #### L 500.2500 ####[facility] [address] [place], [address] Glucose [Mass/Vol] 395 mg/dL High 70-99 [facility] Comment on above: Performed By: #### L 500.2500 ####[facility] [address] [place], [address] Potassium [Moles/Vol] 4.3 mmol/L Normal 3.3-5.1 [facility] Comment on above: Performed By: #### L 500.2500 ####[facility] [address] [place], [address] Sodium [Moles/Vol] 136 mmol/L Normal 133-145 [facility] Comment on above: Performed By: #### L 500.2500 ####[facility] [address] [place], [address] Urea nitrogen [Mass/Vol] 62 mg/dL High 4-19 [facility] Comment on above: Performed By: #### L 500.2500 ####[facility] [address] [place], [address] Bedside Glucoseon 04-08-2025 FINGERSTICK GLU 415 mg/dL High 74-106 [facility] Comment on above: Result Comment: ADITI GEMENT OF PATIENT CARE PER NURSING PROTOCOL Performed By: #### L 501.080 ####[facility] [address] [place], [address] FINGERSTICK GLU 420 mg/dL High 74-106 [facility] Comment on above: Result Comment: AIDTI GEMENT OF PATIENT CARE PER NURSING PROTOCOL Performed By: #### L 501.080 ####[facility] [address] [place], [address] FINGERSTICK GLU 361 mg/dL High 74-106 [facility] Comment on above: Result Comment: ADITI ESCOBEDO OF PATIENT CARE PER NURSING PROTOCOL Performed By: #### L 501.080 ####[facility] [address] [place], [address] CBC W/Diff, Automatedon 06-0 8-2025 Absolute Lymph 0.63 X10 3/uL Low 0.83-4.51 [facility] Comment on above: Performed By: #### L 100.0100 ####[facility] [address] [place], [address] Absolute Neut 7.6 X10 3/uL Normal 2.0-7.7 [facility] Comment on above: Performed By: #### L 100.0100 ####[facility] [address] [place], [address] Basophils/100 WBC (Bld) 0.0 % Normal 0-1 [facility] Comment on above: Performed By: #### L 100.0100 ####[facility] [address] [place], [address] Eosinophils/100 WBC (Bld) 0.0 % Normal 0-5 [facility] Comment on above: Performed By: #### L 100.0100 ####[facility] [address] [place], [address] Erythrocyte distribution width (RBC) [Ratio] 13.5 % Normal 11.6-14.6 [facility] Comment on above: Performed By: #### L 100.0100 ####[facility] [address] [place], [address] Hematocrit (Bld) [Volume fraction] 21.5 % Low 40-54 [facility] Comment on above: Performed By: #### L 100.0100 ####[facility] [address] [place], [address] Hemoglobin (Bld) [Mass/Vol] 6.9 g/dL Low 13.0-16.5 [facility] Comment on above: Performed By: #### L 100.0100 ####[facility] [address] [place], [address] IG% 0.500 Normal 0.0-0.9 [facility] Comment on above: Result Comment: IG% - Immature Granulocytes (promyelocytes, myelocytes andmetamyelocytes) > 1% indicates that a LEFT SHIFT is Present. Performed By: #### L 100.0100 ####[facility] [address] [place], [address] Lymphocytes/100 WBC (Bld) 7.3 % Low 19-41 [facility] Comment on above: Performed By: #### L 100.0100 ####[facility] [address] [place], [address] MCH (RBC) [Entitic mass] 29.5 pg Normal 27.0-32.0 [facility] Comment on above: Performed By: #### L 100.0100 ####[facility] [address] [place], [address] MCHC (RBC) [Mass/Vol] 32.1 g/dL Normal 32-36 [facility] Comment on above: Performed By: #### L 100.0100 ####[facility] [address] [place], [address] MCV (RBC) [Entitic vol] 91.9 fL Normal 80-94 [facility] Comment on above: Performed By: #### L 100.0100 ####[facility] [address] [place], [address] Monocytes/100 WBC (Bld) 4.2 % Normal 0-10 [facility] Comment on above: Performed By: #### L 100.0100 ####[facility] [address] [place], [address] Neutrophils/100 WBC (Bld) 88.0 % High 47-70 [facility] Comment on above: Performed By: #### L 100.0100 ####[facility] [address] [place], [address] Nucleated RBC (Bld) [#/Vol] 0 10*3/uL Normal 0-5 [facility] Comment on above: Performed By: #### L 100.0100 ####[facility] [address] [place], [address] Platelet mean volume (Bld) [Entitic vol] 12.5 fL High 6.2-12.0 [facility] Comment on above: Performed By: #### L 100.0100 ####[facility] [address] [place], [address] Platelets (Bld) [#/Vol] 176 10*3/uL Normal 150-450 [facility] Comment on above: Performed By: #### L 100.0100 ####[facility] [address] [place], [address] RBC (Bld) [#/Vol] 2.34 10*6/uL Low 4.6-6.2 [facility] Comment on above: Performed By: #### L 100.0100 ####[facility] [address] [place], [address] RDW SD 44.2 fl High 35.1-43.9 [facility] Comment on above: Performed By: #### L 100.0100 ####[facility] [address] [place], [address] WBC (Bld) [#/Vol] 8.6 10*3/uL Normal 4.4-11.0 [facility] Comment on above: Performed By: #### L 100.0100 ####[facility] [address] [place], [address] Culture, Blood (WB)on 2024 CUB No growth in [address] [facility] Comment on above: Performed By: #### L 503.6005, M200.1000 ####[facility] [address] [place], [address] Glucoseon 04-08-2025 Glucose [Mass/Vol] 528 mg/dL Invalid Interpretation Code 70-99 [facility] Comment on above: Result Comment: Crit ical Result(s) Called at 2220: by:??NBURNS TO EAFFOLTERResults read back by same. Performed By: #### L 501.0100 ####[facility] [address] [place], [address] Respiratory Cultureon 2024 RESPC Mixed normal respiratory kyler. No Streptococcus pneumoniae, beta-hemolytic Streptococcus or Staphylococcus aureus isolated. [facility] Comment on above: Performed By: #### M 100.2000, M100.2400 ####[facility] [address] [place], [address] Type AND Screenon 04-08-2025 ABO and Rh group Nom (Bld) Blood group A Rh(D) positive Normal [facility] Comment on above: Order Comment: CMV N EG? NNumber of units to transfuse: 1Reason for Ordering Blood: AcuteAre the blood/blood products to be transfused? YIs the patient having/had surgery? Nany Hazel Performed By: #### B TS, BRC ####[facility] [address] [place], [address] Ab SCREEN GEL Negative [facility] Comment on above: Order Comment: CMV N EG? NNumber of units to transfuse: 1Reason for Ordering Blood: AcuteAre the blood/blood products to be transfused? YIs the patient having/had surgery? Nany Hazel Performed By: #### B ADILIA GLORIA ####[facility] [address] [place], [address] Basic Metabolic Profile (BMP )on 04-07-2025 BUN/CRE 22.1 RATIO High 10-20 [facility] Comment on above: Performed By: #### L 500.2500 ####[facility] [address] [place], [address] Calcium [Mass/Vol] 8.2 mg/dL Normal 7.6-11.0 [facility] Comment on above: Performed By: #### L 500.2500 ####[facility] [address] [place], [address] Chloride [Moles/Vol] 99 mmol/L Normal 98-108 [facility] Comment on above: Performed By: #### L 500.2500 ####[facility] [address] [place], [address] CO2 [Moles/Vol] 21.3 mmol/L Normal 21.0-32.0 [facility] Comment on above: Performed By: #### L 500.2500 ####[facility] [address] [place], [address] Creatinine [Mass/Vol] 3.61 mg/dL High 0.70-1.20 [facility] Comment on above: Performed By: #### L 500.2500 ####[facility] [address] [place], [address] ECRCL 14.50 ml/min Low 50-250 [facility] Comment on above: Performed By: #### L 500.2500 ####[facility] [address] [place], [address] GAP 16 High 5-15 [facility] Comment on above: Performed By: #### L 500.2500 ####[facility] [address] [place], [address] GFR/1.73 sq M.predicted among non-blacks MDRD (S/P/Bld) [Vol rate/Area] 16 mL/min/{1.73_m2} Low >[address] [facility] Comment on above: Result Comment: mL/m in/1.73m2 CKD-EPI Creatinine Equation (2020) Performed By: #### L 500.2500 ####[facility] [address] [place], [address] Glucose [Mass/Vol] 423 mg/dL High 70-99 [facility] Comment on above: Performed By: #### L 500.2500 ####[facility] [address] [place], [address] Potassium [Moles/Vol] 4.3 mmol/L Normal 3.3-5.1 [facility] Comment on above: Performed By: #### L 500.2500 ####[facility] [address] [place], [address] Sodium [Moles/Vol] 137 mmol/L Normal 133-145 [facility] Comment on above: Performed By: #### L 500.2500 ####[facility] [address] [place], [address] Urea nitrogen [Mass/Vol] 80 mg/dL High 4-19 [facility] Comment on above: Performed By: #### L 500.2500 ####[facility] [address] [place], [address] Bedside Glucoseon 04-07-2025 FINGERSTICK GLU 402 mg/dL High 74-106 [facility] Comment on above: Result Comment: ADITI ESCOBEDO OF PATIENT CARE PER NURSING PROTOCOL Performed By: #### L 501.080 ####[facility] [address] [place], [address] FINGERSTICK GLU 330 mg/dL High 74-106 [facility] Comment on above: Result Comment: ADITI GEMENT OF PATIENT CARE PER NURSING PROTOCOL Performed By: #### L 501.080 ####[facility] [address] [place], [address] FINGERSTICK GLU 333 mg/dL High 74-106 [facility] Comment on above: Result Comment: ADITI GEMENT OF PATIENT CARE PER NURSING PROTOCOL Performed By: #### L 501.080 ####[facility] [address] [place], [address] FINGERSTICK GLU 392 mg/dL High -106 [facility] Comment on above: Result Comment: ADITI GEMENT OF PATIENT CARE PER NURSING PROTOCOL Performed By: #### L 501.080 ####[facility] [address] [place], [address] FINGERSTICK GLU 280 mg/dL High 74-106 [facility] Comment on above: Result Comment: ADITI GEMENT OF PATIENT CARE PER NURSING PROTOCOL Performed By: #### L 501.080 ####[facility] [address] [place], [address] CBC W/Diff, Automatedon 06-0 7-2024 Absolute Lymph 1.30 X10 3/uL Normal 0.83-4.51 [facility] Comment on above: Performed By: #### L 100.0100 ####[facility] [address] [place], [address] Absolute Neut 8.2 X10 3/uL High 2.0-7.7 [facility] Comment on above: Performed By: #### L 100.0100 ####[facility] [address] [place], [address] Basophils/100 WBC (Bld) 0.0 % Normal 0-1 [facility] Comment on above: Performed By: #### L 100.0100 ####[facility] [address] [place], [address] Eosinophils/100 WBC (Bld) 0.1 % Normal 0-5 [facility] Comment on above: Performed By: #### L 100.0100 ####[facility] [address] [place], [address] Erythrocyte distribution width (RBC) [Ratio] 13.7 % Normal 11.6-14.6 [facility] Comment on above: Performed By: #### L 100.0100 ####[facility] [address] [place], [address] Hematocrit (Bld) [Volume fraction] 23.1 % Low 40-54 [facility] Comment on above: Performed By: #### L 100.0100 ####[facility] [address] [place], [address] Hemoglobin (Bld) [Mass/Vol] 7.7 g/dL Low 13.0-16.5 [facility] Comment on above: Performed By: #### L 100.0100 ####[facility] [address] [place], [address] IG% 0.300 Normal 0.0-0.9 [facility] Comment on above: Result Comment: IG% - Immature Granulocytes (promyelocytes, myelocytes andmetamyelocytes) > 1% indicates that a LEFT SHIFT is Present. Performed By: #### L 100.0100 ####[facility] [address] [place], [address] Lymphocytes/100 WBC (Bld) 12.6 % Low 19-41 [facility] Comment on above: Performed By: #### L 100.0100 ####[facility] [address] [place], [address] MCH (RBC) [Entitic mass] 30.8 pg Normal 27.0-32.0 [facility] Comment on above: Performed By: #### L 100.0100 ####[facility] [address] [place], [address] MCHC (RBC) [Mass/Vol] 33.3 g/dL Normal 32-36 [facility] Comment on above: Performed By: #### L 100.0100 ####[facility] [address] [place], [address] MCV (RBC) [Entitic vol] 92.4 fL Normal 80-94 [facility] Comment on above: Performed By: #### L 100.0100 ####[facility] [address] [place], [address] Monocytes/100 WBC (Bld) 8.0 % Normal 0-10 [facility] Comment on above: Performed By: #### L 100.0100 ####[facility] [address] [place], [address] Neutrophils/100 WBC (Bld) 79.0 % High 47-70 [facility] Comment on above: Performed By: #### L 100.0100 ####[facility] [address] [place], [address] Nucleated RBC (Bld) [#/Vol] 0 10*3/uL Normal 0-5 [facility] Comment on above: Performed By: #### L 100.0100 ####[facility] [address] [place], [address] Platelet mean volume (Bld) [Entitic vol] 12.3 fL High 6.2-12.0 [facility] Comment on above: Performed By: #### L 100.0100 ####[facility] [address] [place], [address] Platelets (Bld) [#/Vol] 191 10*3/uL Normal 150-450 [facility] Comment on above: Performed By: #### L 100.0100 ####[facility] [address] [place], [address] RBC (Bld) [#/Vol] 2.50 10*6/uL Low 4.6-6.2 [facility] Comment on above: Performed By: #### L 100.0100 ####[facility] [address] [place], [address] RDW SD 46.1 fl High 35.1-43.9 [facility] Comment on above: Performed By: #### L 100.0100 ####[facility] [address] [place], [address] WBC (Bld) [#/Vol] 10.4 10*3/uL Normal 4.4-11.0 [facility] Comment on above: Performed By: #### L 100.0100 ####[facility] [address] [place], [address] Ferritinon 04-07-2025 Ferritin [Mass/Vol] 69 ng/mL Normal 37-417 [facility] Comment on above: Performed By: #### L 503.6030, L503.6550 ####[facility] [address] [place], [address] Gram stainOrdered By: Dayna White on 04-07-2025 Microscopic observation Gram stain Nom (Unsp spec) [facility] Iron measurement (mass/mass) Ordered By: Jose Moore on 04-07-2025 Iron (Unsp spec) [Mass/Mass] 27 ug/dL Low 65-175 [facility] Iron+Iron Binding Capacityon 04-07-2025 Iron [Mass/Vol] 27 ug/dL Low 65-175 [facility] Comment on above: Performed By: #### L 503.6030, L503.6550 ####[facility] [address] [place], [address] IRON SATURATION 10.0 Normal 9- [facility] Comment on above: Performed By: #### L 503.6030, L503.6550 ####[facility] [address] [place], [address] TIBC 270 ug/dL Normal 250-450 [facility] Comment on above: Performed By: #### L 503.6030, L503.6550 ####[facility] [address] [place], [address] UIBC 243 ug/dL Normal 228-428 [facility] Comment on above: Performed By: #### L 503.6030, L503.6550 ####[facility] [address] [place], [address] Microbial respiratory cultur eOrdered By: Dyana Hwang on 04-07-2025 Microorganism identified Cx Nom (Unsp spec) or Staphylococcus aureus isolated. [facility] No Panel InformationOrdered By: Jose Moore on 04-07-2025 Unsaturated Iron Binding Capacity 243 ug/dL 228-428 [facility] 243 ug/dL 228-428 [facility] Serum or plasma ferritin heriberto surement (mass/volume)Ordered By: Jose Moore on 04-07-2025 Ferritin [Mass/Vol] 69 ng/mL 37-417 [facility] Serum or plasma iron saturat ion measurement (mass fraction)Ordered By: Jose Moore on 04-07-2025 Iron saturation [Mass fraction] 10.0 % 9- [facility] Basic Metabolic Profile (BMP )on 04-06-2025 BUN/CRE 21.8 RATIO High 10-20 [facility] Comment on above: Performed By: #### L 500.2500 ####[facility] [address] [place], [address] Calcium [Mass/Vol] 8.3 mg/dL Normal 7.6-11.0 [facility] Comment on above: Performed By: #### L 500.2500 ####[facility] [address] [place], [address] Chloride [Moles/Vol] 100 mmol/L Normal 98-108 [facility] Comment on above: Performed By: #### L 500.2500 ####[facility] [address] [place], [address] CO2 [Moles/Vol] 21.0 mmol/L Normal 21.0-32.0 [facility] Comment on above: Performed By: #### L 500.2500 ####[facility] [address] [place], [address] Creatinine [Mass/Vol] 4.73 mg/dL High 0.70-1.20 [facility] Comment on above: Performed By: #### L 500.2500 ####[facility] [address] [place], [address] ECRCL 11.24 ml/min Low 50-250 [facility] Comment on above: Performed By: #### L 500.2500 ####[facility] [address] [place], [address] GAP 18 High 5-15 [facility] Comment on above: Performed By: #### L 500.2500 ####[facility] [address] [place], [address] GFR/1.73 sq M.predicted among non-blacks MDRD (S/P/Bld) [Vol rate/Area] 12 mL/min/{1.73_m2} Low >[address] [facility] Comment on above: Result Comment: mL/m in/1.73m2 CKD-EPI Creatinine Equation (2020) Performed By: #### L 500.2500 ####[facility] [address] [place], [address] Glucose [Mass/Vol] 233 mg/dL High 70-99 [facility] Comment on above: Performed By: #### L 500.2500 ####[facility] [address] [place], [address] Potassium [Moles/Vol] 4.2 mmol/L Normal 3.3-5.1 [facility] Comment on above: Performed By: #### L 500.2500 ####[facility] [address] [place], [address] Sodium [Moles/Vol] 139 mmol/L Normal 133-145 [facility] Comment on above: Performed By: #### L 500.2500 ####[facility] [address] [place], [address] Urea nitrogen [Mass/Vol] 103 mg/dL Invalid Interpretation Code 4-19 [facility] Comment on above: Result Comment: Crit ical Result(s) Called at: by: 04/06/2025-09:27 Neal to Andressa Khanna.??Results read back by same. Performed By: #### L 500.2500 ####[facility] [address] [place], [address] Bedside Glucoseon 04-06-2025 FINGERSTICK GLU 269 mg/dL High 74-106 [facility] Comment on above: Result Comment: ADITI GEMENT OF PATIENT CARE PER NURSING PROTOCOL Performed By: #### L 501.080 ####[facility] [address] [place], [address] FINGERSTICK GLU 225 mg/dL High 74-106 [facility] Comment on above: Result Comment: ADITI GEMENT OF PATIENT CARE PER NURSING PROTOCOL Performed By: #### L 501.080 ####[facility] [address] [place], [address] FINGERSTICK GLU 281 mg/dL High 74-106 [facility] Comment on above: Result Comment: ADITI GEMENT OF PATIENT CARE PER NURSING PROTOCOL Performed By: #### L 501.080 ####[facility] [address] [place], [address] CBC W/Diff, Automatedon 06-0 6-2024 Absolute Lymph 1.34 X10 3/uL Normal 0.83-4.51 [facility] Comment on above: Performed By: #### L 100.0100 ####[facility] [address] [place], [address] Absolute Neut 12.3 X10 3/uL High 2.0-7.7 [facility] Comment on above: Performed By: #### L 100.0100 ####[facility] [address] [place], [address] Basophils/100 WBC (Bld) 0.1 % Normal 0-1 [facility] Comment on above: Performed By: #### L 100.0100 ####[facility] [address] [place], [address] Eosinophils/100 WBC (Bld) 0.0 % Normal 0-5 [facility] Comment on above: Performed By: #### L 100.0100 ####[facility] [address] [place], [address] Erythrocyte distribution width (RBC) [Ratio] 13.8 % Normal 11.6-14.6 [facility] Comment on above: Performed By: #### L 100.0100 ####[facility] [address] [place], [address] Hematocrit (Bld) [Volume fraction] 23.6 % Low 40-54 [facility] Comment on above: Performed By: #### L 100.0100 ####[facility] [address] [place], [address] Hemoglobin (Bld) [Mass/Vol] 7.9 g/dL Low 13.0-16.5 [facility] Comment on above: Performed By: #### L 100.0100 ####[facility] [address] [place], [address] IG% 0.500 Normal 0.0-0.9 [facility] Comment on above: Result Comment: IG% - Immature Granulocytes (promyelocytes, myelocytes andmetamyelocytes) > 1% indicates that a LEFT SHIFT is Present. Performed By: #### L 100.0100 ####[facility] [address] [place], [address] Lymphocytes/100 WBC (Bld) 9.1 % Low 19-41 [facility] Comment on above: Performed By: #### L 100.0100 ####[facility] [address] [place], [address] MCH (RBC) [Entitic mass] 30.7 pg Normal 27.0-32.0 [facility] Comment on above: Performed By: #### L 100.0100 ####[facility] [address] [place], [address] MCHC (RBC) [Mass/Vol] 33.5 g/dL Normal 32-36 [facility] Comment on above: Performed By: #### L 100.0100 ####[facility] [address] [place], [address] MCV (RBC) [Entitic vol] 91.8 fL Normal 80-94 [facility] Comment on above: Performed By: #### L 100.0100 ####[facility] [address] [place], [address] Monocytes/100 WBC (Bld) 7.0 % Normal 0-10 [facility] Comment on above: Performed By: #### L 100.0100 ####[facility] [address] [place], [address] Neutrophils/100 WBC (Bld) 83.3 % High 47-70 [facility] Comment on above: Performed By: #### L 100.0100 ####[facility] [address] [place], [address] Nucleated RBC (Bld) [#/Vol] 0 10*3/uL Normal 0-5 [facility] Comment on above: Performed By: #### L 100.0100 ####[facility] [address] [place], [address] Platelet mean volume (Bld) [Entitic vol] 11.9 fL Normal 6.2-12.0 [facility] Comment on above: Performed By: #### L 100.0100 ####[facility] [address] [place], [address] Platelets (Bld) [#/Vol] 222 10*3/uL Normal 150-450 [facility] Comment on above: Performed By: #### L 100.0100 ####[facility] [address] [place], [address] RBC (Bld) [#/Vol] 2.57 10*6/uL Low 4.6-6.2 [facility] Comment on above: Performed By: #### L 100.0100 ####[facility] [address] [place], [address] RDW SD 46.2 fl High 35.1-43.9 [facility] Comment on above: Performed By: #### L 100.0100 ####[facility] [address] [place], [address] WBC (Bld) [#/Vol] 14.8 10*3/uL High 4.4-11.0 [facility] Comment on above: Performed By: #### L 100.0100 ####[facility] [address] [place], [address] Magnesiumon 04-06-2025 Magnesium [Mass/Vol] 2.8 mg/dL High 1.5-2.2 [facility] Comment on above: Performed By: #### L 501.5200, L501.2300 ####[facility] [address] [place], [place], [address] Magnesium measurement (mass/ volume)Ordered By: Barbie Martin on 04-06-2025 Magnesium (Unsp spec) [Mass/Vol] 2.8 mg/dL High 1.5-2.2 [facility] Phosphoruson 04-06-2025 Phosphate [Mass/Vol] 7.1 mg/dL High 2.7-4.5 [facility] Comment on above: Performed By: #### L 501.5200, L501.2300 ####[facility] [address] [place], [place], [address] Serum classic neutrophil cyt oplasmic antibody assay (units/volume)Ordered By: Denisha Thompson on 04-06-2025 Neutrophil cytoplasmic Ab.classic Qn (S) <1:20 titer Neg:<1:20 [facility] Serum glomerular basement me mbrane antibody assay (units/volume)Ordered By: Denisha Thompson on 04-06-2025 Glomerular basement membrane Ab Qn (S) < 0.2 units 0.0-0.9 [facility] Comment on above: Performed at: [address] [id number] Director: Mignon Taylor MD, Phone: [phone] Serum perinuclear neutrophil cytoplasmic antibody titer by immunofluorescenceOrdered By: Denisha Thompson on 04-06-2025 Neutrophil cytoplasmic Ab.perinuclear IF (S) [Titer] <1:20 titer Neg:<1:20 [facility] Comment on above: The presence of posi tive fluorescence exhibiting P-ANCA orC-ANCA patterns alone is not specific for the diagnosis ofWegener's Granulomatosis (WG) or microscopic polyangiitis.Decisions about treatment should not be based solely onANCA IFA results. The [employer] Consensusrecommends follow up testing of positive sera with both TN-3 and MPO-ANCA enzyme immunoassays. As many as 5% serumsamples are positive only by EIA. Ref. AM J Clin Kvcydr9200;111:507-513. 12 Lead EKGon 04-05-2025 12 Lead EKG Normal [facility] Basic Metabolic Profile (BMP )on 04-05-2025 BUN/CRE 20.8 RATIO High 10-20 [facility] Comment on above: Performed By: #### L 500.2500 ####[facility] [address] [place], [address] Calcium [Mass/Vol] 8.9 mg/dL Normal 7.6-11.0 [facility] Comment on above: Performed By: #### L 500.2500 ####[facility] [address] [place], [address] Chloride [Moles/Vol] 102 mmol/L Normal 98-108 [facility] Comment on above: Performed By: #### L 500.2500 ####[facility] [address] [place], [address] CO2 [Moles/Vol] 15.6 mmol/L Low 21.0-32.0 [facility] Comment on above: Performed By: #### L 500.2500 ####[facility] [address] [place], [address] Creatinine [Mass/Vol] 4.77 mg/dL High 0.70-1.20 [facility] Comment on above: Performed By: #### L 500.2500 ####[facility] [address] [place], [address] ECRCL 10.67 ml/min Low 50-250 [facility] Comment on above: Performed By: #### L 500.2500 ####[facility] [address] [place], [address] GAP 19 High 5-15 [facility] Comment on above: Performed By: #### L 500.2500 ####[facility] [address] [place], [address] GFR/1.73 sq M.predicted among non-blacks MDRD (S/P/Bld) [Vol rate/Area] 12 mL/min/{1.73_m2} Low >[address] [facility] Comment on above: Result Comment: mL/m in/1.73m2 CKD-EPI Creatinine Equation (2020) Performed By: #### L 500.2500 ####[facility] [address] [place], [address] Glucose [Mass/Vol] 205 mg/dL High 70-99 [facility] Comment on above: Performed By: #### L 500.2500 ####[facility] [address] [place], [address] Potassium [Moles/Vol] 5.7 mmol/L High 3.3-5.1 [facility] Comment on above: Result Comment: Hemo lysis present, Results??could be affected.?? Performed By: #### L 500.2500 ####[facility] [address] [place], [address] Sodium [Moles/Vol] 137 mmol/L Normal 133-145 [facility] Comment on above: Performed By: #### L 500.2500 ####[facility] [address] [place], [address] Urea nitrogen [Mass/Vol] 99 mg/dL High 4-19 [facility] Comment on above: Performed By: #### L 500.2500 ####[facility] [address] [place], [address] BUN/CRE 20.5 RATIO High 10-20 [facility] Comment on above: Performed By: #### L 500.2500 ####[facility] [address] [place], [address] Calcium [Mass/Vol] 8.1 mg/dL Normal 7.6-11.0 [facility] Comment on above: Performed By: #### L 500.2500 ####[facility] [address] [place], [address] Chloride [Moles/Vol] 102 mmol/L Normal 98-108 [facility] Comment on above: Performed By: #### L 500.2500 ####[facility] [address] [place], [address] CO2 [Moles/Vol] 15.8 mmol/L Low 21.0-32.0 [facility] Comment on above: Performed By: #### L 500.2500 ####[facility] [address] [place], [address] Creatinine [Mass/Vol] 4.68 mg/dL High 0.70-1.20 [facility] Comment on above: Performed By: #### L 500.2500 ####[facility] [address] [place], [address] ECRCL 10.87 ml/min Low 50-250 [facility] Comment on above: Performed By: #### L 500.2500 ####[facility] [address] [place], [address] GAP 18 High 5-15 [facility] Comment on above: Performed By: #### L 500.2500 ####[facility] [address] [place], [address] GFR/1.73 sq M.predicted among non-blacks MDRD (S/P/Bld) [Vol rate/Area] 12 mL/min/{1.73_m2} Low >[address] [facility] Comment on above: Result Comment: mL/m in/1.73m2 CKD-EPI Creatinine Equation (2020) Performed By: #### L 500.2500 ####[facility] [address] [place], [address] Glucose [Mass/Vol] 223 mg/dL High 70-99 [facility] Comment on above: Performed By: #### L 500.2500 ####[facility] [address] [place], [address] Potassium [Moles/Vol] 6.3 mmol/L Invalid Interpretation Code 3.3-5.1 [facility] Comment on above: Result Comment: Crit ical Result(s) Called to: STANTON PARRA ([facility]) by:RONEN??Results read back by same. Performed By: #### L 500.2500 ####[facility] [address] [place], [address] Sodium [Moles/Vol] 136 mmol/L Normal 133-145 [facility] Comment on above: Performed By: #### L 500.2500 ####[facility] [address] [place], [address] Urea nitrogen [Mass/Vol] 96 mg/dL High 4-19 [facility] Comment on above: Performed By: #### L 500.2500 ####[facility] [address] [place], [address] Bedside Glucoseon 04-05-2024 FINGERSTICK GLU 282 mg/dL High 74-106 [facility] Comment on above: Result Comment: ADITI GEMENT OF PATIENT CARE PER NURSING PROTOCOL Performed By: #### L 501.080 ####[facility] [address] [place], [address] FINGERSTICK GLU 165 mg/dL High 74-106 [facility] Comment on above: Result Comment: ADITI GEMENT OF PATIENT CARE PER NURSING PROTOCOL Performed By: #### L 501.080 ####[facility] [address] [place], [address] FINGERSTICK GLU 239 mg/dL High 74-106 [facility] Comment on above: Result Comment: ADITI GEMENT OF PATIENT CARE PER NURSING PROTOCOL Performed By: #### L 501.080 ####[facility] [address] [place], [address] FINGERSTICK GLU 226 mg/dL High 74-106 [facility] Comment on above: Result Comment: ADITI GEMENT OF PATIENT CARE PER NURSING PROTOCOL Performed By: #### L 501.080 ####[facility] [address] [place], [address] FINGERSTICK GLU 263 mg/dL High 74-106 [facility] Comment on above: Result Comment: ADITI GEMENT OF PATIENT CARE PER NURSING PROTOCOL Performed By: #### L 501.080 ####[facility] [address] [place], [address] FINGERSTICK GLU 253 mg/dL High 74-106 [facility] Comment on above: Result Comment: ADITI GEMENT OF PATIENT CARE PER NURSING PROTOCOL Performed By: #### L 501.080 ####[facility] [address] [place], [address] Bilirubin Test strip Ql (U)O rdered By: Denisha Thompson on 04-05-2025 Bilirubin Ql (U) 1 mg/dL High Negative [facility] Comment on above: COLOR OF URINE MAY A FFECT DIPSTICK RESULTS. Blood manual differential co mment interpretation (narrative result)Ordered By: Grace Arnold on 04-05-2025 Manual differential comment Mumtaz (Bld) [Interp] SCANNED [facility] CBC W/Diff, Automatedon SMEAR COMMENT SCANNED Normal [facility] Comment on above: Performed By: #### L 100.0100 ####[facility] [address] [place], [address] CXR for Line Placementon CXR for Line Placement Normal [facility] Consultation - Surgicalon Consultation - Surgical Normal [facility] Ketones Test strip Ql (U)Ord ered By: Deinsha Thompson on 04-05-2025 Ketones Ql (U) Negative Negative [facility] L499.0042on 04-05-2025 Trop T High Sen 2263 ng/L Invalid Interpretation Code <=22 [facility] Comment on above: Result Comment: Crit ical Result(s) Called at: 0040 by: BJ??Results read back by same. Performed By: #### L 499.0042 ####[facility] [address] [place], [place], [address] L499.0043on 04-05-2025 Trop T High Sen 2425 ng/L Invalid Interpretation Code <=22 [facility] Comment on above: Result Comment: Crit ical Result(s) Called at: 0336 by:??DASIA ALICIA Results read back by same. Performed By: #### L 499.0043 ####[facility] [address] [place], [place], [address] Microscopic analysis of urin e for red blood cells (RBC)Ordered By: Denisha Thompson on 04-05-2025 Microscopic analysis of urine for red blood cells (RBC) > 100 SEEN /hpf 0-5 [facility] Mucus LM Ql (Urine sed)Order ed By: Denisha Thompson on 04-05-2025 Mucus Ql (Urine sed) 0 SEEN /hpf [facility] Nitrite Test strip Ql (U)Ord ered By: Denisha Thompson on 04-05-2025 Nitrite Ql (U) Negative Negative [facility] Operative Reporton Operative Report Normal [facility] Protein Test strip Ql (U)Ord ered By: Denisha Thompson on 04-05-2025 Protein Ql (U) 100 mg/dl High Negative [facility] Squamous epithelial cells de tection in urine sediment by light microscopyOrdered By: Denisha Thompson on 04-05-2025 Epithelial cells.squamous LM Ql (Urine sed) 0 SEEN /hpf 0-5 [facility] Troponin T.cardiac [Mass/vol ume] in Serum or Plasma by High sensitivity methodOrdered By: Breezy Campbell on 04-05-2025 Troponin T.cardiac High sensitivity method [Mass/Vol] 2425 ng/L High <22 [facility] Comment on above: Critical Result(s) C alled at: 0336 by: DASIA MOYA TO ANA ALICIA Results read back by same. Urinalysis, Completeon 04-05 WBC 5-10 SEEN Normal 0-5 [facility] Comment on above: Order Comment: HATTIE TER SPECIMEN Performed By: #### L 400.0001 ####[facility] [address] [place], [address] RBC > 100 SEEN Normal 0-5 [facility] Comment on above: Order Comment: HATTIE TER SPECIMEN Performed By: #### L 400.0001 ####[facility] [address] [place], [address] BACTERIA 0 SEEN Normal None Seen [facility] [facility] Comment on above: Order Comment: HATTIE TER SPECIMEN Performed By: #### L 400.0001 ####[facility] [address] [place], [address] EPI,SQUAMOUS 0 SEEN Normal 0-5 [facility] Comment on above: Order Comment: HATTIE TER SPECIMEN Performed By: #### L 400.0001 ####[facility] [address] [place], [address] Mucus Ql (Urine sed) [address] [facility] Comment on above: Order Comment: HATTIE TER SPECIMEN Performed By: #### L 400.0001 ####[facility] [address] [place], [address] Urine clarityOrdered By: Zelalem Thompson on 04-05-2025 Clarity (U) Sl. Cloudy Clear [facility] Urine color determinationOrd ered By: Denisha Thompson on 04-05-2025 Color (U) Yellow Yellow [facility] Urine glucose detectionOrder ed By: Denisha Thompson on 04-05-2025 Glucose Ql (U) Normal mg/dl Normal [facility] Urine leukocyte esterase det ection by dipstickOrdered By: Denisha Thompson on 04-05-2025 Leukocyte esterase Test strip Ql (U) 500 /ul High Negative [facility] Urine pHOrdered By: Almita Thompson on 04-05-2025 pH (U) 5.0 [pH] 5.0 - 8.0 [facility] Urine sediment bacteria coun t by microscopy (number/high power field)Ordered By: Denisha Thompson on 04-05-2025 Bacteria LM.HPF (Urine sed) [#/Area] 0 /[HPF] None Seen [facility] Urine specific gravity measu rementOrdered By: Denisha Thompson on 04-05-2025 Specific gravity (U) [Rel density] 1.020 1.002-1.030 [facility] Urine urobilinogen measureme ntOrdered By: Denisha Thompson on 04-05-2025 Urobilinogen Ql (U) Normal mg/dl Normal [facility] White blood cell countOrdere d By: Denisha Thompson on 04-05-2025 White blood cell count 5-10 SEEN /hpf 0-5 [facility] 12 Lead EKGon 04-04-2025 12 Lead EKG Normal [facility] 12 Lead EKG Normal [facility] 12 Lead EKG Normal [facility] Basic Metabolic Profile (BMP )on 04-04-2025 BUN Normal 4-19 [facility] Comment on above: Result Comment: CANC EL PER DEVEROAUX Performed By: #### L 500.2500 ####[facility] [address] [facility] [id number] BUN/CRE Normal 10-20 [facility] Comment on above: Result Comment: CANC EL PER DEVEROAUX Performed By: #### L 500.2500 ####[facility] [address] [place], [place], [id number] Calcium Normal 7.6-11.0 [facility] Comment on above: Result Comment: CANC EL PER DEVEROAUX Performed By: #### L 500.2500 ####[facility] [address] [place], [address] CL Normal 98-108 [facility] Comment on above: Result Comment: CANC EL PER DEVEROAUX Performed By: #### L 500.2500 ####[facility] [address] [place], [address] CO2 Normal 21.0-32.0 [facility] Comment on above: Result Comment: CANC EL PER DEVEROAUX Performed By: #### L 500.2500 ####[facility] [address] [place], [address] CREAT,SERUM Normal 0.70-1.20 [facility] Comment on above: Result Comment: CANC EL PER DEVEROAUX Performed By: #### L 500.2500 ####[facility] [address] [place], [address] eGFR Normal >60 [facility] Comment on above: Result Comment: CANC EL PER DEVEROAUX Performed By: #### L 500.2500 ####[facility] [address] [place], [address] GAP Normal 5-15 [facility] Comment on above: Result Comment: CANC EL PER DEVEROAUX Performed By: #### L 500.2500 ####[facility] [address] [place], [address] GLU Normal 70-99 [facility] Comment on above: Result Comment: CANC EL PER DEVEROAUX Performed By: #### L 500.2500 ####[facility] [address] [place], [address] Potassium Normal 3.3-5.1 [facility] Comment on above: Result Comment: CANC EL PER DEVEROAUX Performed By: #### L 500.2500 ####[facility] [address] [place], [address] Basic Metabolic Profile (BMP) Normal 133-145 [facility] Comment on above: Result Comment: CANC EL DELGADO MAKI Performed By: #### L 500.2500 ####[facility] [address] [place], [address] BUN/CRE 20.5 RATIO High 10-20 [facility] Comment on above: Performed By: #### L 500.2500 ####[facility] [address] [place], [address] Calcium [Mass/Vol] 8.6 mg/dL Normal 7.6-11.0 [facility] Comment on above: Performed By: #### L 500.2500 ####[facility] [address] [place], [address] Chloride [Moles/Vol] 101 mmol/L Normal 98-108 [facility] Comment on above: Performed By: #### L 500.2500 ####[facility] [address] [place], [address] CO2 [Moles/Vol] 17.2 mmol/L Low 21.0-32.0 [facility] Comment on above: Performed By: #### L 500.2500 ####[facility] [address] [place], [address] Creatinine [Mass/Vol] 3.74 mg/dL High 0.70-1.20 [facility] Comment on above: Performed By: #### L 500.2500 ####[facility] [address] [place], [address] ECRCL 13.61 ml/min Low 50-250 [facility] Comment on above: Performed By: #### L 500.2500 ####[facility] [address] [place], [address] GAP 17 High 5-15 [facility] Comment on above: Performed By: #### L 500.2500 ####[facility] [address] [place], [address] GFR/1.73 sq M.predicted among non-blacks MDRD (S/P/Bld) [Vol rate/Area] 16 mL/min/{1.73_m2} Low >[address] [facility] Comment on above: Result Comment: mL/m in/1.73m2 CKD-EPI Creatinine Equation (2020) Performed By: #### L 500.2500 ####[facility] [address] [place], [address] Glucose [Mass/Vol] 226 mg/dL High 70-99 [facility] Comment on above: Performed By: #### L 500.2500 ####[facility] [address] [place], [address] Potassium [Moles/Vol] 5.4 mmol/L High 3.3-5.1 [facility] Comment on above: Performed By: #### L 500.2500 ####[facility] [address] [place], [address] Sodium [Moles/Vol] 134 mmol/L Normal 133-145 [facility] Comment on above: Performed By: #### L 500.2500 ####[facility] [address] [place], [address] Urea nitrogen [Mass/Vol] 77 mg/dL High 4-19 [facility] Comment on above: Performed By: #### L 500.2500 ####[facility] [address] [place], [address] BUN/CRE 21.0 RATIO High 10-20 [facility] Comment on above: Performed By: #### L 500.2500 ####[facility] [address] [place], [address] Calcium [Mass/Vol] 8.7 mg/dL Normal 7.6-11.0 [facility] Comment on above: Performed By: #### L 500.2500 ####[facility] [address] [place], [address] Chloride [Moles/Vol] 104 mmol/L Normal 98-108 [facility] Comment on above: Performed By: #### L 500.2500 ####[facility] [address] [place], [address] CO2 [Moles/Vol] 17.5 mmol/L Low 21.0-32.0 [facility] Comment on above: Performed By: #### L 500.2500 ####[facility] [address] [place], [address] Creatinine [Mass/Vol] 3.34 mg/dL High 0.70-1.20 [facility] Comment on above: Performed By: #### L 500.2500 ####[facility] [address] [place], [address] ECRCL 15.24 ml/min Low 50-250 [facility] Comment on above: Performed By: #### L 500.2500 ####[facility] [address] [place], [address] GAP 15 Normal 5-15 [facility] Comment on above: Performed By: #### L 500.2500 ####[facility] [address] [place], [address] GFR/1.73 sq M.predicted among non-blacks MDRD (S/P/Bld) [Vol rate/Area] 18 mL/min/{1.73_m2} Low >[address] [facility] Comment on above: Result Comment: mL/m in/1.73m2 CKD-EPI Creatinine Equation (2020) Performed By: #### L 500.2500 ####[facility] [address] [place], [address] Glucose [Mass/Vol] 208 mg/dL High 70-99 [facility] Comment on above: Performed By: #### L 500.2500 ####[facility] [address] [place], [address] Potassium [Moles/Vol] 5.0 mmol/L Normal 3.3-5.1 [facility] Comment on above: Performed By: #### L 500.2500 ####[facility] [address] [place], [address] Sodium [Moles/Vol] 137 mmol/L Normal 133-145 [facility] Comment on above: Performed By: #### L 500.2500 ####[facility] [address] [place], [address] Urea nitrogen [Mass/Vol] 70 mg/dL High 4-19 [facility] Comment on above: Performed By: #### L 500.2500 ####[facility] [address] [place], [address] BUN/CRE 21.1 RATIO High 10-20 [facility] Comment on above: Performed By: #### L 500.2500 ####[facility] [address] [place], [address] Calcium [Mass/Vol] 8.6 mg/dL Normal 7.6-11.0 [facility] Comment on above: Performed By: #### L 500.2500 ####[facility] [address] [place], [address] Chloride [Moles/Vol] 103 mmol/L Normal 98-108 [facility] Comment on above: Performed By: #### L 500.2500 ####[facility] [address] [place], [address] CO2 [Moles/Vol] 17.8 mmol/L Low 21.0-32.0 [facility] Comment on above: Performed By: #### L 500.2500 ####[facility] [address] [place], [address] Creatinine [Mass/Vol] 3.26 mg/dL High 0.70-1.20 [facility] Comment on above: Performed By: #### L 500.2500 ####[facility] [address] [place], [address] ECRCL 15.61 ml/min Low 50-250 [facility] Comment on above: Performed By: #### L 500.2500 ####[facility] [address] [place], [address] GAP 15 Normal 5-15 [facility] Comment on above: Performed By: #### L 500.2500 ####[facility] [address] [place], [address] GFR/1.73 sq M.predicted among non-blacks MDRD (S/P/Bld) [Vol rate/Area] 18 mL/min/{1.73_m2} Low >[address] [facility] Comment on above: Result Comment: mL/m in/1.73m2 CKD-EPI Creatinine Equation (2020) Performed By: #### L 500.2500 ####[facility] [address] [place], [address] Glucose [Mass/Vol] 203 mg/dL High 70-99 [facility] Comment on above: Performed By: #### L 500.2500 ####[facility] [address] [place], [address] Potassium [Moles/Vol] 4.6 mmol/L Normal 3.3-5.1 [facility] Comment on above: Performed By: #### L 500.2500 ####[facility] [address] [place], [address] Sodium [Moles/Vol] 136 mmol/L Normal 133-145 [facility] Comment on above: Performed By: #### L 500.2500 ####[facility] [address] [place], [address] Urea nitrogen [Mass/Vol] 69 mg/dL High 4-19 [facility] Comment on above: Performed By: #### L 500.2500 ####[facility] [address] [place], [address] Bedside Glucoseon 04-04-2025 FINGERSTICK GLU 355 mg/dL High 74-106 [facility] Comment on above: Result Comment: ADITI GEMENT OF PATIENT CARE PER NURSING PROTOCOL Performed By: #### L 501.080 ####[facility] [address] [place], [address] FINGERSTICK GLU 307 mg/dL High 74-106 [facility] Comment on above: Result Comment: ADITI GEMENT OF PATIENT CARE PER NURSING PROTOCOL Performed By: #### L 501.080 ####[facility] [address] [place], [address] FINGERSTICK GLU 164 mg/dL High 74-106 [facility] Comment on above: Result Comment: ADITI GEMENT OF PATIENT CARE PER NURSING PROTOCOL Performed By: #### L 501.080 ####[facility] [address] [place], [address] FINGERSTICK GLU 209 mg/dL High 74-106 [facility] Comment on above: Result Comment: ADITI GEMENT OF PATIENT CARE PER NURSING PROTOCOL Performed By: #### L 501.080 ####[facility] [address] [place], [address] FINGERSTICK GLU 178 mg/dL High 74-106 [facility] Comment on above: Result Comment: ADITI GEMENT OF PATIENT CARE PER NURSING PROTOCOL Performed By: #### L 501.080 ####[facility] [address] [place], [address] FINGERSTICK GLU 183 mg/dL High 74-106 [facility] Comment on above: Result Comment: ADITI GEMENT OF PATIENT CARE PER NURSING PROTOCOL Performed By: #### L 501.080 ####[facility] [address] [place], [address] FINGERSTICK GLU 229 mg/dL High 74-106 [facility] Comment on above: Result Comment: ADITI GEMENT OF PATIENT CARE PER NURSING PROTOCOL Performed By: #### L 501.080 ####[facility] [address] [place], [address] FINGERSTICK GLU 174 mg/dL High 74-106 [facility] Comment on above: Result Comment: ADITI GEMENT OF PATIENT CARE PER NURSING PROTOCOL Performed By: #### L 501.080 ####[facility] [address] [place], [address] FINGERSTICK GLU 284 mg/dL High 74-106 [facility] Comment on above: Result Comment: ADITI GEMENT OF PATIENT CARE PER NURSING PROTOCOL Performed By: #### L 501.080 ####[facility] [address] [place], [address] FINGERSTICK GLU 235 mg/dL High [facility]106 [facility] Comment on above: Result Comment: ADITI GEMENT OF PATIENT CARE PER NURSING PROTOCOL Performed By: #### L 501.080 ####[facility] [address] [place], [address] FINGERSTICK GLU 250 mg/dL High -[address] [place] [address] Comment on above: Result Comment: ADITI GEMENT OF PATIENT CARE PER NURSING PROTOCOL Performed By: #### L 501.080 ####[facility] [address] [place], [address] FINGERSTICK GLU 317 mg/dL High [facility]106 [facility] Comment on above: Result Comment: ADITI GEMENT OF PATIENT CARE PER NURSING PROTOCOL Performed By: #### L 501.080 ####[facility] [address] [place], [address] FINGERSTICK GLU 366 mg/dL High 74-106 [facility] Comment on above: Result Comment: ADITI GEMENT OF PATIENT CARE PER NURSING PROTOCOL Performed By: #### L 501.080 ####[facility] [address] [place], [address] FINGERSTICK GLU 261 mg/dL High 74-106 [facility] Comment on above: Result Comment: ADITI GEMENT OF PATIENT CARE PER NURSING PROTOCOL Performed By: #### L 501.080 ####[facility] [address] [place], [address] CBC W/Diff, Automatedon 06-0 4-2024 Absolute Lymph 1.08 X10 3/uL Normal 0.83-4.51 [facility] Comment on above: Performed By: #### L 100.0100 ####[facility] [address] [place], [address] Absolute Neut 19.9 X10 3/uL High 2.0-7.7 [facility] Comment on above: Performed By: #### L 100.0100 ####[facility] [address] [place], [address] Basophils/100 WBC (Bld) 0.1 % Normal 0-1 [facility] Comment on above: Performed By: #### L 100.0100 ####[facility] [address] [place], [address] Eosinophils/100 WBC (Bld) 0.0 % Normal 0-5 [facility] Comment on above: Performed By: #### L 100.0100 ####[facility] [address] [place], [address] Erythrocyte distribution width (RBC) [Ratio] 13.6 % Normal 11.6-14.6 [facility] Comment on above: Performed By: #### L 100.0100 ####[facility] [address] [place], [address] Hematocrit (Bld) [Volume fraction] 22.8 % Low 40-54 [facility] Comment on above: Performed By: #### L 100.0100 ####[facility] [address] [place], [address] Hemoglobin (Bld) [Mass/Vol] 7.4 g/dL Low 13.0-16.5 [facility] Comment on above: Performed By: #### L 100.0100 ####[facility] [address] [place], [address] IG% 0.600 Normal 0.0-0.9 [facility] Comment on above: Result Comment: IG% - Immature Granulocytes (promyelocytes, myelocytes andmetamyelocytes) > 1% indicates that a LEFT SHIFT is Present. Performed By: #### L 100.0100 ####[facility] [address] [place], [address] Lymphocytes/100 WBC (Bld) 4.9 % Low 19-41 [facility] Comment on above: Performed By: #### L 100.0100 ####[facility] [address] [place], [address] MCH (RBC) [Entitic mass] 30.0 pg Normal 27.0-32.0 [facility] Comment on above: Performed By: #### L 100.0100 ####[facility] [address] [place], [address] MCHC (RBC) [Mass/Vol] 32.5 g/dL Normal 32-36 [facility] Comment on above: Performed By: #### L 100.0100 ####[facility] [address] [place], [address] MCV (RBC) [Entitic vol] 92.3 fL Normal 80-94 [facility] Comment on above: Performed By: #### L 100.0100 ####[facility] [address] [place], [address] Monocytes/100 WBC (Bld) 4.0 % Normal 0-10 [facility] Comment on above: Performed By: #### L 100.0100 ####[facility] [address] [place], [address] Neutrophils/100 WBC (Bld) 90.4 % High 47-70 [facility] Comment on above: Performed By: #### L 100.0100 ####[facility] [address] [place], [address] Nucleated RBC (Bld) [#/Vol] 0 10*3/uL Normal 0-5 [facility] Comment on above: Performed By: #### L 100.0100 ####[facility] [address] [place], [address] Platelet mean volume (Bld) [Entitic vol] 11.4 fL Normal 6.2-12.0 [facility] Comment on above: Performed By: #### L 100.0100 ####[facility] [address] [place], [address] Platelets (Bld) [#/Vol] 230 10*3/uL Normal 150-450 [facility] Comment on above: Performed By: #### L 100.0100 ####[facility] [address] [place], [address] RBC (Bld) [#/Vol] 2.47 10*6/uL Low 4.6-6.2 [facility] Comment on above: Performed By: #### L 100.0100 ####[facility] [address] [place], [address] RDW SD 45.9 fl High 35.1-43.9 [facility] Comment on above: Performed By: #### L 100.0100 ####[facility] [address] [place], [address] WBC (Bld) [#/Vol] 22.0 10*3/uL High 4.4-11.0 [facility] Comment on above: Performed By: #### L 100.0100 ####[facility] [address] [place], [address] Consultation - Nephrologyon 04-04-2025 Consultation - Nephrology Normal [facility] Creatinine, Urineon 04-04-20 25 URINE CREAT 138.00 mg/dL Normal 39.00-259.00 [facility] Comment on above: Performed By: #### L 502.0300, L502.0715 ####[facility] [address] [place], [address] Kidney and Bladderon 025 Kidney and Bladder Normal [facility] L501.4021on 04-04-2025 Trop T High Sen 2204 ng/L Invalid Interpretation Code <=22 [facility] Comment on above: Result Comment: Crit ical Result(s) Called at: 2 by: JEANNIE SHARMA Results read back by same. Performed By: #### L 501.4021 ####[facility] [address] [place], [address] Troponin T.cardiac [Mass/vol ume] in Serum or Plasma by High sensitivity methodOrdered By: Breezy Campbell on 04-04-2025 Troponin T.cardiac High sensitivity method [Mass/Vol] 2204 ng/L High <22 [facility] Comment on above: Delta: 58 on 5-0005Critical Result(s) Called at: 2232 by: JEANNIE SHARMA Results read back by same. Troponin T.cardiac High sensitivity method [Mass/Vol] 2263 ng/L High <22 [facility] Comment on above: Critical Result(s) C alled at: 0040 by: JENNIFER SHARMA Results read back by same. Urea Nitrogen, Urineon 04-04 URINE UREA 406 mg/dL Normal NO RANGE EST. [facility] Comment on above: Performed By: #### L 502.0300, L502.0715 ####[facility] [address] [place], [place], [address] Urine Cultureon 04-04-2025 URC Culture exhibits no growth. Normal [facility] Comment on above: Performed By: #### M 100.2200 ####[facility] [address] [place], [place], [address] Urine creatinine measurement (mass/volume)Ordered By: Grace Arnold on 04-04-2025 Creatinine (U) [Mass/Vol] 138.00 mg/dL 39.00-25 9.00 [facility] 12 Lead EKGon 04-03-2025 12 Lead EKG Normal [facility] Absolute lymphocyte countOrd ered By: John Brandon on 04-03-2025 Lymphocytes Auto (Unsp spec) [#/Vol] 2.12 10*3/uL 0.83-4.51 [facility] Absolute neutrophil countOrd ered By: John Brandon on 04-03-2025 Neutrophils (Bld) [#/Vol] 12.0 10*3/uL High 2.0-7.7 [facility] Activated partial thrombopla stin time (aPTT) in platelet poor plasma by coagulation aOrdered By: Grace Arnold on 04-03-2025 aPTT Coag (PPP) [Time] 212.0 s High 24.1-36.[address] [facility] Comment on above: CRITICAL VALUE GRIMM Nadeem TO RElizabet OBREGONZO04/03/25 1243 Ness Huang.RESULTS READ BACK BY SAME. Activated partial thrombopla stin time (aPTT) in platelet poor plasma by coagulation aOrdered By: Dyana Hwang on 04-03-2025 aPTT Coag (PPP) [Time] 37.3 s High 24.1-36.[address] [facility] Anion gap in Serum or Plasma Ordered By: John Brandon on 04-03-2025 Anion gap [Moles/Vol] 14 mmol/L 5-15 [facility] Assessment of wrist artery p atency prior to arterial punctureOrdered By: Dyana Hwang on 04-03-2025 Arterial patency Wrist artery --pre arterial puncture Positive [facility] Automated lymphocyte count a s percentage of total leukocytesOrdered By: John Brandon on 04-03-2025 Lymphocytes/100 WBC Auto (Unsp spec) 13.5 % Low 19-41 [facility] BUN/creatinine ratioOrdered By: John Brandon on 04-03-2025 Urea nitrogen/Creatinine [Mass ratio] 22.3 mg/mg High 10-20 [facility] Basic Metabolic Profile (BMP )on 04-03-2025 BUN/CRE 21.7 RATIO High - [facility] Comment on above: Performed By: #### L 500.2500 ####[facility] [address] [place], [address] Calcium [Mass/Vol] 8.5 mg/dL Normal 7.6-11.0 [facility] Comment on above: Performed By: #### L 500.2500 ####[facility] [address] [place], [address] Chloride [Moles/Vol] 102 mmol/L Normal 98-108 [facility] Comment on above: Performed By: #### L 500.2500 ####[facility] [address] [place], [address] CO2 [Moles/Vol] 17.3 mmol/L Low 21.0-32.0 [facility] Comment on above: Performed By: #### L 500.2500 ####[facility] [address] [place], [address] Creatinine [Mass/Vol] 3.02 mg/dL High 0.70-1.20 [facility] Comment on above: Performed By: #### L 500.2500 ####[facility] [address] [place], [address] ECRCL 16.69 ml/min Low 50-250 [facility] Comment on above: Performed By: #### L 500.2500 ####[facility] [address] [place], [address] GAP 16 High 5-15 [facility] Comment on above: Performed By: #### L 500.2500 ####[facility] [address] [place], [address] GFR/1.73 sq M.predicted among non-blacks MDRD (S/P/Bld) [Vol rate/Area] 20 mL/min/{1.73_m2} Low >[address] [facility] Comment on above: Result Comment: mL/m in/1.73m2 CKD-EPI Creatinine Equation (2020) Performed By: #### L 500.2500 ####[facility] [address] [place], [address] Glucose [Mass/Vol] 275 mg/dL High 70-99 [facility] Comment on above: Performed By: #### L 500.2500 ####[facility] [address] [place], [address] Potassium [Moles/Vol] 4.5 mmol/L Normal 3.3-5.1 [facility] Comment on above: Performed By: #### L 500.2500 ####[facility] [address] [place], [address] Sodium [Moles/Vol] 136 mmol/L Normal 133-145 [facility] Comment on above: Performed By: #### L 500.2500 ####[facility] [address] [place], [address] Urea nitrogen [Mass/Vol] 66 mg/dL High 4-19 [facility] Comment on above: Performed By: #### L 500.2500 ####[facility] [address] [place], [address] BUN/CRE 22.9 RATIO High 10-20 [facility] Comment on above: Performed By: #### L 500.2500 ####[facility] [address] [place], [address] Calcium [Mass/Vol] 9.0 mg/dL Normal 7.6-11.0 [facility] Comment on above: Performed By: #### L 500.2500 ####[facility] [address] [place], [address] Chloride [Moles/Vol] 100 mmol/L Normal 98-108 [facility] Comment on above: Performed By: #### L 500.2500 ####[facility] [address] [place], [address] CO2 [Moles/Vol] 16.9 mmol/L Low 21.0-32.0 [facility] Comment on above: Performed By: #### L 500.2500 ####[facility] [address] [place], [address] Creatinine [Mass/Vol] 2.73 mg/dL High 0.70-1.20 [facility] Comment on above: Performed By: #### L 500.2500 ####[facility] [address] [place], [address] ECRCL 18.46 ml/min Low 50-250 [facility] Comment on above: Performed By: #### L 500.2500 ####[facility] [address] [place], [address] GAP 18 High 5-15 [facility] Comment on above: Performed By: #### L 500.2500 ####[facility] [address] [place], [address] GFR/1.73 sq M.predicted among non-blacks MDRD (S/P/Bld) [Vol rate/Area] 23 mL/min/{1.73_m2} Low >[address] [facility] Comment on above: Result Comment: mL/m in/1.73m2 CKD-EPI Creatinine Equation (2020) Performed By: #### L 500.2500 ####[facility] [address] [place], [address] Glucose [Mass/Vol] 407 mg/dL High 70-99 [facility] Comment on above: Performed By: #### L 500.2500 ####[facility] [address] [place], [address] Potassium [Moles/Vol] 4.3 mmol/L Normal 3.3-5.1 [facility] Comment on above: Performed By: #### L 500.2500 ####[facility] [address] [place], [address] Sodium [Moles/Vol] 135 mmol/L Normal 133-145 [facility] Comment on above: Performed By: #### L 500.2500 ####[facility] [address] [place], [address] Urea nitrogen [Mass/Vol] 62 mg/dL High 4-19 [facility] Comment on above: Performed By: #### L 500.2500 ####[facility] [address] [place], [address] BUN/CRE 21.7 RATIO High 10-20 [facility] Comment on above: Performed By: #### L 500.2500 ####[facility] [address] [place], [address] Calcium [Mass/Vol] 8.6 mg/dL Normal 7.6-11.0 [facility] Comment on above: Performed By: #### L 500.2500 ####[facility] [address] [place], [address] Chloride [Moles/Vol] 98 mmol/L Normal 98-108 [facility] Comment on above: Performed By: #### L 500.2500 ####[facility] [address] [place], [address] CO2 [Moles/Vol] 13.6 mmol/L Low 21.0-32.0 [facility] Comment on above: Performed By: #### L 500.2500 ####[facility] [address] [place], [address] Creatinine [Mass/Vol] 2.67 mg/dL High 0.70-1.20 [facility] Comment on above: Performed By: #### L 500.2500 ####[facility] [address] [place], [address] ECRCL 18.87 ml/min Low 50-250 [facility] Comment on above: Performed By: #### L 500.2500 ####[facility] [address] [place], [address] GAP 21 High 5-15 [facility] Comment on above: Performed By: #### L 500.2500 ####[facility] [address] [place], [address] GFR/1.73 sq M.predicted among non-blacks MDRD (S/P/Bld) [Vol rate/Area] 23 mL/min/{1.73_m2} Low >[address] [facility] Comment on above: Result Comment: mL/m in/1.73m2 CKD-EPI Creatinine Equation (2020) Performed By: #### L 500.2500 ####[facility] [address] [place], [address] Glucose [Mass/Vol] 638 mg/dL Invalid Interpretation Code 70-99 [facility] Comment on above: Result Comment: Crit ical Result(s) Called JINDERMULE at: 1553 by:COLETTE??Results read back by same. Performed By: #### L 500.2500 ####[facility] [address] [place], [address] Potassium [Moles/Vol] 4.4 mmol/L Normal 3.3-5.1 [facility] Comment on above: Performed By: #### L 500.2500 ####[facility] [address] [place], [address] Sodium [Moles/Vol] 133 mmol/L Normal 133-145 [facility] Comment on above: Performed By: #### L 500.2500 ####[facility] [address] [place], [address] Urea nitrogen [Mass/Vol] 58 mg/dL High 4-19 [facility] Comment on above: Performed By: #### L 500.2500 ####[facility] [address] [place], [address] BUN/CRE 22.3 RATIO High 10-20 [facility] Comment on above: Performed By: #### L 100.0100, L500.2500, L300.8000 ####[facility] [address] [place], [address] Calcium [Mass/Vol] 8.8 mg/dL Normal 7.6-11.0 [facility] Comment on above: Performed By: #### L 100.0100, L500.2500, L300.8000 ####[facility] [address] [place], [address] Chloride [Moles/Vol] 104 mmol/L Normal 98-108 [facility] Comment on above: Performed By: #### L 100.0100, L500.2500, L300.8000 ####[facility] [address] [place], [address] CO2 [Moles/Vol] 20.8 mmol/L Low 21.0-32.0 [facility] Comment on above: Performed By: #### L 100.0100, L500.2500, L300.8000 ####[facility] [address] [place], [address] Creatinine [Mass/Vol] 1.88 mg/dL High 0.70-1.20 [facility] Comment on above: Performed By: #### L 100.0100, L500.2500, L300.8000 ####[facility] [address] [place], [address] ECRCL 28.20 ml/min Low 50-250 [facility] Comment on above: Performed By: #### L 100.0100, L500.2500, L300.8000 ####[facility] [address] [place], [address] GAP 14 Normal 5-15 [facility] Comment on above: Performed By: #### L 100.0100, L500.2500, L300.8000 ####[facility] [address] [place], [address] GFR/1.73 sq M.predicted among non-blacks MDRD (S/P/Bld) [Vol rate/Area] 35 mL/min/{1.73_m2} Low >[address] [facility] Comment on above: Result Comment: mL/m in/1.73m2 CKD-EPI Creatinine Equation (2020) Performed By: #### L 100.0100, L500.2500, L300.8000 ####[facility] [address] [place], [address] Glucose [Mass/Vol] 255 mg/dL High 70-99 [facility] Comment on above: Performed By: #### L 100.0100, L500.2500, L300.8000 ####[facility] [address] [place], [address] Potassium [Moles/Vol] 4.4 mmol/L Normal 3.3-5.1 [facility] Comment on above: Performed By: #### L 100.0100, L500.2500, L300.8000 ####[facility] [address] [place], [address] Sodium [Moles/Vol] 139 mmol/L Normal 133-145 [facility] Comment on above: Performed By: #### L 100.0100, L500.2500, L300.8000 ####[facility] [address] [place], [address] Urea nitrogen [Mass/Vol] 42 mg/dL High 4-19 [facility] Comment on above: Performed By: #### L 100.0100, L500.2500, L300.8000 ####[facility] [address] [place], [address] Basophil percentageOrdered B y: John Aleksandr on 04-03-2025 Basophils/100 WBC (Bld) 0.6 % 0-1 [facility] Bedside Glucoseon 04-03-2025 FINGERSTICK GLU 363 mg/dL High [address] [place] [address] Comment on above: Result Comment: ADITI ESCOBEDO OF PATIENT CARE PER NURSING PROTOCOL Performed By: #### L 501.080 ####[facility] [address] [place], [address] FINGERSTICK GLU 454 mg/dL Invalid Interpretation Code [address] [place] [address] Comment on above: Result Comment: Dr James sim FollowedMANAGEMENT OF PATIENT CARE PER NURSING PROTOCOL Performed By: #### L 501.080 ####[facility] [address] [place], [address] FINGERSTICK GLU 496 mg/dL Invalid Interpretation Code [address] [place] [address] Comment on above: Result Comment: Dr James sim FollowedMANAGEMENT OF PATIENT CARE PER NURSING PROTOCOL Performed By: #### L 501.080 ####[facility] [address] [place], [address] FINGERSTICK GLU > 500 Invalid Interpretation Code [address] [place] [address] Comment on above: Result Comment: ADITI GEMENT OF PATIENT CARE PER NURSING PROTOCOL Performed By: #### L 501.080 ####[facility] [address] [place], [address] FINGERSTICK GLU > 500 Invalid Interpretation Code [address] Comment on above: Result Comment: ADITI GEMENT OF PATIENT CARE PER NURSING PROTOCOL Performed By: #### L 501.080 ####[facility] [address] [place], [address] FINGERSTICK GLU > 500 Invalid Interpretation Code [facility]106 [facility] Comment on above: Result Comment: ADITI GEMENT OF PATIENT CARE PER NURSING PROTOCOL Performed By: #### L 501.080 ####[facility] [address] [place], [address] FINGERSTICK GLU 435 mg/dL High [address] Comment on above: Result Comment: ADITI GEMENT OF PATIENT CARE PER NURSING PROTOCOL Performed By: #### L 501.080 ####[facility] [address] [place], [address] Bilirubin, totalOrdered By: Dyana Hwang on 04-03-2025 Bilirubin [Mass/Vol] 0.38 mg/dL 0.00-1.30 [facility] Blood Gases by [facility] 025 FILI TEST Positive Normal [facility] Comment on above: Performed By: #### L 9000.0800 ####[facility] [address] [place], [address] Base excess Calc (Bld) [Moles/Vol] -8 mmol/L Low -2 to +2 [facility] Comment on above: Performed By: #### L 9000.0800 ####[facility] [address] [place], [address] Blood Gas Type ART Normal [facility] Comment on above: Performed By: #### L 9000.0800 ####[facility] [address] [place], [address] CO2 [Moles/Vol] 18 mmol/L Normal [facility] Comment on above: Performed By: #### L 9000.0800 ####[facility] [address] [place], [address] FI02 30.0 Normal [facility] Comment on above: Performed By: #### L 0.0800 ####[facility] [address] [place], [address] HCO3 (Bld) [Moles/Vol] 17.5 mmol/L Low 22-26 [facility] Comment on above: Performed By: #### L 0.0800 ####[facility] [address] [place], [address] Mode Not entered Normal [facility] Comment on above: Performed By: #### L 0.0800 ####[facility] [address] [place], [address] O2 Delivery Dev BiPAP Normal [facility] Comment on above: Performed By: #### L 9000.0800 ####[facility] [address] [place], [address] pCO2 29.8 mmHg Low 35-45 [facility] Comment on above: Performed By: #### L 9000.0800 ####[facility] [address] [place], [address] PEEP 10 Normal [facility] Comment on above: Performed By: #### L 9000.0800 ####[facility] [address] [place], [address] pH (Bld) 7.38 [pH] Normal 7.35-7.45 [facility] Comment on above: Performed By: #### L 0.0800 ####[facility] [address] [place], [address] PIP 18 Normal [facility] Comment on above: Performed By: #### L 9000.0800 ####[facility] [address] [place], [address] PO2 83 mmHG Normal 75-100 [facility] Comment on above: Performed By: #### L 9000.0800 ####[facility] [address] [place], [address] RR 12 Normal [facility] Comment on above: Performed By: #### L 9000.0800 ####[facility] [address] [place], [address] SITE R Radial Normal [facility] Comment on above: Performed By: #### L 9000.0800 ####[facility] [address] [place], [address] SO2 96 Normal 95-99 [facility] Comment on above: Performed By: #### L 9000.0800 ####[facility] [address] [place], [address] Blood base excess determinat ionOrdered By: Dyana Hwang on 04-03-2025 Base excess Calc (BldV) [Moles/Vol] -8 mmol/L Low -2-2 [facility] Blood bicarbonate measuremen tOrdered By: Dyana Hwang on 04-03-2025 HCO3 (Bld) [Moles/Vol] 17.5 mmol/L Low 22-26 [facility] Blood cultureOrdered By: Elli Brandon on 04-03-2025 Bacteria identified Cx Nom (Bld) No growth in 5 days. [facility] Bacteria identified Cx Nom (Bld) No growth in 5 days. [facility] CBC W/Diff, Automatedon 06-0 Absolute Lymph 0.43 X10 3/uL Low 0.83-4.51 [facility] Comment on above: Performed By: #### L 100.0100 ####[facility] [address] [place], [address] Absolute Neut 12.4 X10 3/uL High 2.0-7.7 [facility] Comment on above: Performed By: #### L 100.0100 ####[facility] [address] [place], [address] Basophils/100 WBC (Bld) 0.3 % Normal 0-1 [facility] Comment on above: Performed By: #### L 100.0100 ####[facility] [address] [place], [address] Eosinophils/100 WBC (Bld) 0.0 % Normal 0-5 [facility] Comment on above: Performed By: #### L 100.0100 ####[facility] [address] [place], [address] Erythrocyte distribution width (RBC) [Ratio] 13.4 % Normal 11.6-14.6 [facility] Comment on above: Performed By: #### L 100.0100 ####[facility] [address] [place], [address] Hematocrit (Bld) [Volume fraction] 28.9 % Low 40-54 [facility] Comment on above: Performed By: #### L 100.0100 ####[facility] [address] [place], [address] Hemoglobin (Bld) [Mass/Vol] 9.3 g/dL Low 13.0-16.5 [facility] Comment on above: Performed By: #### L 100.0100 ####[facility] [address] [place], [address] IG% 0.500 Normal 0.0-0.9 [facility] Comment on above: Result Comment: IG% - Immature Granulocytes (promyelocytes, myelocytes andmetamyelocytes) > 1% indicates that a LEFT SHIFT is Present. Performed By: #### L 100.0100 ####[facility] [address] [place], [address] Lymphocytes/100 WBC (Bld) 3.3 % Low 19-41 [facility] Comment on above: Performed By: #### L 100.0100 ####[facility] [address] [place], [address] MCH (RBC) [Entitic mass] 30.1 pg Normal 27.0-32.0 [facility] Comment on above: Performed By: #### L 100.0100 ####[facility] [address] [place], [address] MCHC (RBC) [Mass/Vol] 32.2 g/dL Normal 32-36 [facility] Comment on above: Performed By: #### L 100.0100 ####[facility] [address] [place], [address] MCV (RBC) [Entitic vol] 93.5 fL Normal 80-94 [facility] Comment on above: Performed By: #### L 100.0100 ####[facility] [address] [place], [address] Monocytes/100 WBC (Bld) 1.1 % Normal 0-10 [facility] Comment on above: Performed By: #### L 100.0100 ####[facility] [address] [place], [address] Neutrophils/100 WBC (Bld) 94.8 % High 47-70 [facility] Comment on above: Performed By: #### L 100.0100 ####[facility] [address] [place], [address] Nucleated RBC (Bld) [#/Vol] 0 10*3/uL Normal 0-5 [facility] Comment on above: Performed By: #### L 100.0100 ####[facility] [address] [place], [address] Platelet mean volume (Bld) [Entitic vol] 11.4 fL Normal 6.2-12.0 [facility] Comment on above: Performed By: #### L 100.0100 ####[facility] [address] [place], [address] Platelets (Bld) [#/Vol] 268 10*3/uL Normal 150-450 [facility] Comment on above: Performed By: #### L 100.0100 ####[facility] [address] [place], [address] RBC (Bld) [#/Vol] 3.09 10*6/uL Low 4.6-6.2 [facility] Comment on above: Performed By: #### L 100.0100 ####[facility] [address] [place], [address] RDW SD 45.9 fl High 35.1-43.9 [facility] Comment on above: Performed By: #### L 100.0100 ####[facility] [address] [place], [address] WBC (Bld) [#/Vol] 13.0 10*3/uL High 4.4-11.0 [facility] Comment on above: Performed By: #### L 100.0100 ####[facility] [address] [place], [address] Absolute Lymph 2.12 X10 3/uL Normal 0.83-4.51 [facility] Comment on above: Performed By: #### L 100.0100, L500.2500, L300.8000 ####[facility] [address] [place], [address] Absolute Neut 12.0 X10 3/uL High 2.0-7.7 [facility] Comment on above: Performed By: #### L 100.0100, L500.2500, L300.8000 ####[facility] [address] [place], [address] Basophils/100 WBC (Bld) 0.6 % Normal 0-1 [facility] Comment on above: Performed By: #### L 100.0100, L500.2500, L300.8000 ####[facility] [address] [place], [address] Eosinophils/100 WBC (Bld) 1.9 % Normal 0-5 [facility] Comment on above: Performed By: #### L 100.0100, L500.2500, L300.8000 ####[facility] [address] [place], [address] Erythrocyte distribution width (RBC) [Ratio] 13.2 % Normal 11.6-14.6 [facility] Comment on above: Performed By: #### L 100.0100, L500.2500, L300.8000 ####[facility] [address] [place], [address] Hematocrit (Bld) [Volume fraction] 32.2 % Low 40-54 [facility] Comment on above: Performed By: #### L 100.0100, L500.2500, L300.8000 ####[facility] [address] [place], [address] Hemoglobin (Bld) [Mass/Vol] 10.2 g/dL Low 13.0-16.5 [facility] Comment on above: Performed By: #### L 100.0100, L500.2500, L300.8000 ####[facility] [address] [place], [address] IG% 0.600 Normal 0.0-0.9 [facility] Comment on above: Result Comment: IG% - Immature Granulocytes (promyelocytes, myelocytes andmetamyelocytes) > 1% indicates that a LEFT SHIFT is Present. Performed By: #### L 100.0100, L500.2500, L300.8000 ####[facility] [address] [place], [address] Lymphocytes/100 WBC (Bld) 13.5 % Low 19-41 [facility] Comment on above: Performed By: #### L 100.0100, L500.2500, L300.8000 ####[facility] [address] [place], [address] MCH (RBC) [Entitic mass] 29.9 pg Normal 27.0-32.0 [facility] Comment on above: Performed By: #### L 100.0100, L500.2500, L300.8000 ####[facility] [address] [place], [address] MCHC (RBC) [Mass/Vol] 31.7 g/dL Low 32-36 [facility] Comment on above: Performed By: #### L 100.0100, L500.2500, L300.8000 ####[facility] [address] [place], [address] MCV (RBC) [Entitic vol] 94.4 fL High 80-94 [facility] Comment on above: Performed By: #### L 100.0100, L500.2500, L300.8000 ####[facility] [address] [place], [address] Monocytes/100 WBC (Bld) 7.0 % Normal 0-10 [facility] Comment on above: Performed By: #### L 100.0100, L500.2500, L300.8000 ####[facility] [address] [place], [address] Neutrophils/100 WBC (Bld) 76.4 % High 47-70 [facility] Comment on above: Performed By: #### L 100.0100, L500.2500, L300.8000 ####[facility] [address] [place], [address] Nucleated RBC (Bld) [#/Vol] 0 10*3/uL Normal 0-5 [facility] Comment on above: Performed By: #### L 100.0100, L500.2500, L300.8000 ####[facility] [address] [place], [address] Platelet mean volume (Bld) [Entitic vol] 10.8 fL Normal 6.2-12.0 [facility] Comment on above: Performed By: #### L 100.0100, L500.2500, L300.8000 ####[facility] [address] [place], [address] Platelets (Bld) [#/Vol] 300 10*3/uL Normal 150-450 [facility] Comment on above: Performed By: #### L 100.0100, L500.2500, L300.8000 ####[facility] [address] [place], [address] RBC (Bld) [#/Vol] 3.41 10*6/uL Low 4.6-6.2 [facility] Comment on above: Performed By: #### L 100.0100, L500.2500, L300.8000 ####[facility] [address] [place], [address] RDW SD 45.3 fl High 35.1-43.9 [facility] Comment on above: Performed By: #### L 100.0100, L500.2500, L300.8000 ####[facility] [address] [place], [address] WBC (Bld) [#/Vol] 15.7 10*3/uL High 4.4-11.0 [facility] Comment on above: Performed By: #### L 100.0100, L500.2500, L300.8000 ####[facility] [address] [place], [address] CO2 (BldV) [Moles/Vol]Ordere d By: John Brandon on 04-03-2025 CO2 [Moles/Vol] 27 mmol/L 23-33 [facility] CTA Chest W/WO Contraston CTA Chest W/WO Contrast Normal [facility] Calculated very low density lipoprotein (VLDL) cholesterol measurementOrdered By: Dyana Hwang on 04-03-2025 Calculated very low density lipoprotein (VLDL) cholesterol measurement 9 mg/dL 5-40 [facility] Carbon dioxide, total [Moles /volume] in Central venous bloodOrdered By: John Brandon on 04-03-2025 CO2 [Moles/Vol] 20.8 mmol/L Low 21.0-32.0 [facility] Chest 1 View (Portable)on Chest 1 View (Portable) Normal [facility] Chloride assayOrdered By: Shabbir Brandon on 04-03-2025 Chloride [Moles/Vol] 104 mmol/L 98-108 [facility] Comprehensive Metabolic Prof ilon 04-03-2025 Albumin [Mass/Vol] 3.6 g/dL Normal 3.4-4.8 [facility] Comment on above: Performed By: #### L 500.4050, L501.9520, L509.7001, L500.4100 ####[facility] [address] [place], [address] Albumin/Globulin [Mass ratio] 1.5 {ratio} Normal 0.9-2.4 [facility] Comment on above: Performed By: #### L 500.4050, L501.9520, L509.7001, L500.4100 ####[facility] [address] [place], [address] ALK PHOS 80 U/L Normal 40-129 [facility] Comment on above: Performed By: #### L 500.4050, L501.9520, L509.7001, L500.4100 ####[facility] [address] [place], [address] ALT [Catalytic activity/Vol] 16 U/L Normal <=46 [facility] Comment on above: Performed By: #### L 500.4050, L501.9520, L509.7001, L500.4100 ####[facility] [address] [place], [address] AST [Catalytic activity/Vol] 24 U/L Normal <=37 [facility] Comment on above: Performed By: #### L 500.4050, L501.9520, L509.7001, L500.4100 ####[facility] [address] [place], [address] Bilirubin [Mass/Vol] 0.38 mg/dL Normal 0.00-1.30 [facility] Comment on above: Performed By: #### L 500.4050, L501.9520, L509.7001, L500.4100 ####[facility] [address] [place], [address] BUN/CRE 24.6 RATIO High 10-20 [facility] Comment on above: Performed By: #### L 500.4050, L501.9520, L509.7001, L500.4100 ####[facility] [address] [place], [address] Calcium [Mass/Vol] 7.9 mg/dL Normal 7.6-11.0 [facility] Comment on above: Performed By: #### L 500.4050, L501.9520, L509.7001, L500.4100 ####[facility] [address] [place], [address] Chloride [Moles/Vol] 104 mmol/L Normal 98-108 [facility] Comment on above: Performed By: #### L 500.4050, L501.9520, L509.7001, L500.4100 ####[facility] [address] [place], [address] CO2 [Moles/Vol] 15.5 mmol/L Low 21.0-32.0 [facility] Comment on above: Performed By: #### L 500.4050, L501.9520, L509.7001, L500.4100 ####[facility] [address] [place], [address] Creatinine [Mass/Vol] 1.77 mg/dL High 0.70-1.20 [facility] Comment on above: Performed By: #### L 500.4050, L501.9520, L509.7001, L500.4100 ####[facility] [address] [place], [address] ECRCL 28.47 ml/min Low 50-250 [facility] Comment on above: Performed By: #### L 500.4050, L501.9520, L509.7001, L500.4100 ####[facility] [address] [place], [address] GAP 18 High 5-15 [facility] Comment on above: Performed By: #### L 500.4050, L501.9520, L509.7001, L500.4100 ####[facility] [address] [place], [address] GFR/1.73 sq M.predicted among non-blacks MDRD (S/P/Bld) [Vol rate/Area] 38 mL/min/{1.73_m2} Low >[address] [facility] Comment on above: Result Comment: mL/m in/1.73m2 CKD-EPI Creatinine Equation (2020) Performed By: #### L 500.4050, L501.9520, L509.7001, L500.4100 ####[facility] [address] [place], [address] Globulin (S) [Mass/Vol] 2.4 g/dL Normal 2.2-4.2 [facility] Comment on above: Performed By: #### L 500.4050, L501.9520, L509.7001, L500.4100 ####[facility] [address] [place], [address] Glucose [Mass/Vol] 428 mg/dL High 70-99 [facility] Comment on above: Performed By: #### L 500.4050, L501.9520, L509.7001, L500.4100 ####[facility] [address] [place], [address] Potassium [Moles/Vol] 4.5 mmol/L Normal 3.3-5.1 [facility] Comment on above: Performed By: #### L 500.4050, L501.9520, L509.7001, L500.4100 ####[facility] [address] [place], [address] Sodium [Moles/Vol] 137 mmol/L Normal 133-145 [facility] Comment on above: Performed By: #### L 500.4050, L501.9520, L509.7001, L500.4100 ####[facility] [address] [place], [address] T PROT 6.0 g/dL Normal 5.9-8.4 [facility] Comment on above: Performed By: #### L 500.4050, L501.9520, L509.7001, L500.4100 ####[facility] [address] [place], [address] Urea nitrogen [Mass/Vol] 44 mg/dL High 4-19 [facility] Comment on above: Performed By: #### L 500.4050, L501.9520, L509.7001, L500.4100 ####[facility] [address] [place], [address] Consultation - Cardiologyon 04-03-2025 Consultation - Cardiology Normal [facility] Consultation - Intensiviston 04-03-2025 Consultation - Architectural Renderer Normal [facility] D-Dimer Quantitative (DVT/PE )on 04-03-2025 D-DIMER QUANT 1.86 FEU/ug/m Invalid Interpretation Code 0.27-0.49 [facility] Comment on above: Result Comment: D-Di shyanne ELEVATED (>0.49): Additional studies and clinicalassessments are indicated to conclude diagnosis of:Deep Vein Thrombosis (DVT) or Pulmonary Embolism (PE)CRITICAL VALUE CALLED TO [id number] Victor Hugo Santamaria.RESULTS READ BACK BY SAME. Performed By: #### L 100.0100, L500.2500, L300.8000 ####[facility] [address] [place], [address] Echo Completeon 04-03-2025 Echo Complete Normal [facility] Echocardiogram study reportO rdered By: Koffi Gibbs on 04-03-2025 Study report [facility] [address] [place] [address] Echo Complete 04/03/25 0920 MR#: [id number] Acct: [id number] Name: ENOC ARMANDO Rep #:[id number] : 1945 79 From: Koffi Gibbs MD [...] ~ Date Dictated: 04/03/25919 Date Transcribed: 04/03/251221 Fabrication Engineer: Signed [facility] Work Phone: Emergency Department Summary on 04-03-2025 Emergency Department Summary Normal [facility] Eosinophil percentageOrdered By: John Brandon on 04-03-2025 Eosinophils/100 WBC (Bld) 1.9 % 0-5 [facility] Erythrocyte distribution wid th ratioOrdered By: John Brandon on 04-03-2025 Erythrocyte distribution width (RBC) [Ratio] 13.2 % 11.6-14.6 [facility] Erythrocyte distribution wid th standard deviationOrdered By: John Brandon on 04-03-2025 Erythrocyte distribution width (RBC) [Ratio] 45.3 fl High 35.1-43.9 [facility] Glomerular filtration rate ( GFR) estimation/1.73 sq m using serum, plasma, or whole bOrdered By: John Brandon on 04-03-2025 GFR/1.73 sq M.predicted among non-blacks MDRD (S/P/Bld) [Vol rate/Area] 35 mL/min/{1.73_m2} Low >[address] [facility] Comment on above: mL/min/1.73m2 CKD-EP I Creatinine Equation (2020) H AND P Exam - Hospitaliston 04-03-2025 H&P Exam - Hospitalist Normal [facility] Hematocrit Auto (Bld) [Volum e fraction]Ordered By: John Brandon on 04-03-2025 Hematocrit (Bld) [Volume fraction] 32.2 % Low 40-54 [facility] Hemoglobin measurementOrdere d By: John Brandon on 04-03-2025 Hemoglobin (Bld) [Mass/Vol] 10.2 g/dL Low 13.0-16.5 [facility] Immature granulocytes/100 WB C Auto (Bld)Ordered By: John Brandon on 04-03-2025 Immature granulocytes/100 WBC (Bld) 0.600 % 0.0-0.9 [facility] Comment on above: IG% - Immature Granu locytes (promyelocytes, myelocytes and metamyelocytes) > 1% indicates that a LEFT SHIFT is Present. Influenza virus A and B and SARS-CoV-2 (COVID-19) and Respiratory syncytial virus RNAOrdered By: John Brandon on 04-03-2025 SARS-CoV-2 (COVID-19) RNA ALICE+probe Ql (Unsp spec) [facility] International normalized rat io (INR) calculationOrdered By: Dyana Hwang on 04-03-2025 INR Coag (Bld) [Relative time] 1.0 {INR} [facility] L499.0042on 04-03-2025 Trop T High Sen Normal <=22 [facility] Comment on above: Result Comment: Canc elled via OM: Duplicate Order Performed By: #### L 499.0042 ####[facility] [address] [place], [place], [address] Trop T High Sen 76 ng/L Invalid Interpretation Code <=22 [facility] Comment on above: Result Comment: Crit ical Result(s) Called at:0312 by:??DASIA SHRESTHAN TO HARLEY Results read back by same. Performed By: #### L 499.0042 ####[facility] [address] [place], [address] L499.0043on 04-03-2025 Trop T High Sen Normal <=22 [facility] Comment on above: Result Comment: Canc elled via OM: Duplicate Order Performed By: #### L 499.0043 ####[facility] [address] [place], [address] Trop T High Sen 80 ng/L Invalid Interpretation Code <=22 [facility] Comment on above: Result Comment: Crit ical Result(s) Called at: 0515 by: DASIA JOSEPH??Results read back by same. Performed By: #### L 499.0043 ####[facility] [address] [place], [address] L501.4021on 04-03-2025 Trop T High Sen 58 ng/L Invalid Interpretation Code <=22 [facility] Comment on above: Result Comment: Crit ical Result(s) Called at: 0058 by: DASIA ALBRIGHT??Results read back by same. Performed By: #### L 503.7507, L501.4021 ####[facility] [address] [place], [address] L503.7505on 04-03-2025 Natriuretic peptide B (Bld) [Mass/Vol] 6552 pg/mL High <=1800 [facility] Comment on above: Result Comment: Hear t Failure Unlikely: < 300 pg/mLHeart Failure Likely< 50 Years: > 450 pg/mL50-75 Years: > 900 pg/mL>75 Years: > 1800 pg/mL Performed By: #### L 5037505, L501.4021 ####[facility] [address] [place], [address] L509.7001on 04-03-2025 Procalcitonin 0.31 ng/mL High <=0.10 [facility] Comment on above: Result [...] L 500.4050, L501.9520, L509.7001, L500.4100 ####[facility] [address] [place], [address] LDL calc ser/plasOrdered By: Dyana Hwang on 04-03-2025 Cholesterol in LDL [Mass/Vol] 80 mg/dL [facility] Comment on above: Soaugritlk=612-408 m g/dL & Higher Tkxo=524 mg/dL or greater Laboratory - Chemistry and C hemistry - challengeOrdered By: Dyana Hwang on 04-03-2025 AST [Catalytic activity/Vol] 24 U/L <38 [facility] Lactic Acidon 04-03-2025 Lactate [Moles/Vol] 1.3 mmol/L Normal 0.0-2.0 [facility] Comment on above: Order Comment: Y Performed By: #### L 503.6005, M200.1000 ####[facility] [address] [place], [place], [address] Lactic acid measurementOrder ed By: John Brandon on 04-03-2025 Lactate [Moles/Vol] 1.3 mmol/L 0.0-2.0 [facility] Legionella Antigen Urineon 0 04-03-2025 LEGU Normal [facility] Comment on above: Performed By: #### M 300.2630 ####[facility] [address] [place], [place], [id number] Lipid Profileon 04-03-2025 CHOL:HDL 2.87 Normal [facility] Comment on above: Performed By: #### L 500.4050, L501.9520, L509.7001, L500.4100 ####[facility] [address] [place], [address] Cholesterol [Mass/Vol] 137 mg/dL Normal <=[address] [facility] Comment on above: Result Comment: Chol esterol level, Desirable <200 mg/dLBorderline high cholesterol 200-239 mg/dLHigh cholesterol >=240 mg/dLRecommendations of the NCEP Adult Treatment Panel for thefolling risk-cutoff thresholds for the [place] Americanpulation. Performed By: #### L 500.4050, L501.9520, L509.7001, L500.4100 ####[facility] [address] [place], [address] Cholesterol in HDL [Mass/Vol] 48 mg/dL Normal [facility] Comment on above: Result Comment: Anastacia onal Cholesterol Education Program (NCEP) guidelines:<40 mg/dL: Low HDL-cholesterol (major risk factor for CHD)>= 60 mg/dL: High HDL-cholesterol (negative risk factor forCHD)HDL-cholesterol is affected by a number of factors, e.g.smoking, exercise, hormones, sex and age. Performed By: #### L 500.4050, L501.9520, L509.7001, L500.4100 ####[facility] [address] [place], [address] Cholesterol in LDL [Mass/Vol] 80 mg/dL Normal [facility] Comment on above: Result Comment: Bord putbnz=914-883 mg/dL Higher Phdq=818 mg/dL or greater Performed By: #### L 500.4050, L501.9520, L509.7001, L500.4100 ####[facility] [address] [place], [address] Cholesterol in VLDL [Mass/Vol] 9 mg/dL Normal 5-40 [facility] Comment on above: Performed By: #### L 500.4050, L501.9520, L509.7001, L500.4100 ####[facility] [address] [place], [address] Triglyceride [Mass/Vol] 44 mg/dL Normal [facility] Comment on above: Result Comment: The drugs N-Acetylcysteine and Metamizole may falselydepress this assay.Normal range: <150 mg/dLBorderline High: 150-199 mg/dLHigh: 200-499 mg/dLVery High: >500 mg/dL Performed By: #### L 500.4050, L501.9520, L509.7001, L500.4100 ####[facility] [address] [place], [address] M100.678on 04-03-2025 M100.678 SARS-CoV-2 (COVID 19) Negative INFLUENZA A Negative INFLUENZA B Negative RSV PCR Negative Normal [facility] Comment on above: Performed By: #### M 100.678 ####[facility] [address] [place], [address] M8200.1075on 04-03-2025 M8200.1075 Pending MRSA PCR MRSA NEGATIVE STAPH. AUREUS PCR STAPH. AUREUS NEGATIVE Normal [facility] Comment on above: Performed By: #### M 8200.1075 ####[facility] [address] [place], [address] MCV (mean corpuscular volume ) determinationOrdered By: John Brandon on 04-03-2025 MCV (RBC) [Entitic vol] 94.4 fL High 80-94 [facility] Magnesiumon 04-03-2025 Magnesium [Mass/Vol] 2.3 mg/dL High 1.5-2.2 [facility] Comment on above: Order Comment: Comme nts: may add to ED labs Performed By: #### L 501.5200, L300.3900, L300.4310 ####[facility] [address] [place], [address] Magnesium measurement (mass/ volume)Ordered By: Dyana Hwang on 04-03-2025 Magnesium (Unsp spec) [Mass/Vol] 2.3 mg/dL High 1.5-2.2 [facility] Mean corpuscular hemoglobin (MCH) determinationOrdered By: John Brandon on 04-03-2025 MCH (RBC) [Entitic mass] 29.9 pg 27.0-32.0 [facility] Mean corpuscular hemoglobin concentration (MCHC) determinationOrdered By: John Brandon on 04-03-2025 MCHC (RBC) [Mass/Vol] 31.7 g/dL Low 32-36 [facility] Mean platelet volume determi nationOrdered By: John Brandon on 04-03-2025 Platelet mean volume (Bld) [Entitic vol] 10.8 fL 6.2-12.0 [facility] Measurement, pHOrdered By: Anabelle Hwang on 04-03-2025 pH (Unsp spec) 7.38 [pH] 7.35-7.45 [facility] Monocyte percentageOrdered B y: John Brandon on 04-03-2025 Monocytes/100 WBC (Bld) 7.0 % 0-10 [facility] Natriuretic peptide.B prohor katja N-Terminal [Mass/volume] in Serum or PlasmaOrdered By: John Brandon on 04-03-2025 Natriuretic peptide.B prohormone N-Terminal [Mass/Vol] 6552 pg/mL High <1800 [facility] Comment on above: Heart Failure Unlike ly: < 300 pg/mLHeart Failure Likely< 50 Years: > 450 pg/mL50-75 Years: > 900 pg/mL>75 Years: > 1800 pg/mL Neutrophil percentageOrdered By: John Brandon on 04-03-2025 Neutrophils/100 WBC (Bld) 76.4 % High 47-70 [facility] No Panel InformationOrdered By: Dyana Hwang on 04-03-2025 Bedside Blood Gas PEEP [address] [facility] Bld Gas Peak Inspiratory Pressure 18 [facility] Blood Gas Respiration Rate 12 [facility] Blood Gas Sample Site R Radial [facility] Blood Gas Specimen Type ART W [facility] Blood Gas Vent Mode Not entered [facility] Oxygen Delivery [facility] ART [facility] R Radial [facility] Not entered [facility] BiPAP [facility] 18 [facility] 12 [facility] 10 [facility] 24 U/L <38 [facility] No Panel InformationOrdered By: John Brandon on 04-03-2025 Blood Gas Clinical Comments 18. 10. 30% [facility] 18. 10. 30% [facility] Nucleated red blood cell per centageOrdered By: John Brandon on 04-03-2025 Nucleated RBC/100 WBC (Bld) [Ratio] 0 % 0-5 [facility] Partial Thromboplast Timeon 04-03-2025 aPTT Coag (Bld) [Time] 212.0 s Invalid Interpretation Code 24.1-36.2 [facility] Comment on above: Result Comment: CRIT ICAL VALUE CALLED TO Carol CORONA04/03/25 1243 Ness Huang.RESULTS READ BACK BY SAME. Performed By: #### L 300.4310 ####[facility] [address] [place], [address] aPTT Coag (Bld) [Time] 37.3 s High 24.1-36.[address] [facility] Comment on above: Performed By: #### L 501.5200, L300.3900, L300.4310 ####[facility] [address] [place], [address] Platelet countOrdered By: Shabbir Brandon on 04-03-2025 Platelets (Bld) [#/Vol] 300 10*3/uL 150-450 [facility] Potassium measurement (mass/ volume)Ordered By: John Brandon on 04-03-2025 Potassium (Unsp spec) [Mass/Vol] 4.4 mmol/L 3.3-5.1 [facility] Procalcitonin [Mass/volume] in Serum or Plasma by ImmunoassayOrdered By: Dyana Hwang on 04-03-2025 Procalcitonin IA [Mass/Vol] 0.31 ng/mL High <0.11 [facility] Comment on above: Interpretation:<0.10 -0.25 [...] [Relative time] 1.0 {INR} Normal [facility] Comment on above: Performed By: #### L 501.5200, L300.3900, L300.4310 ####[facility] [address] [place], [address] PT Coag (PPP) [Time] 13.4 s Normal 11.7-14.9 [facility] Comment on above: Performed By: #### L 501.5200, L300.3900, L300.4310 ####[facility] [address] [place], [address] Prothrombin timeOrdered By: Dyana Hwang on 04-03-2025 PT Coag (PPP) [Time] 13.4 s 11.7-14.9 [facility] RBC Auto (Bld) [#/Vol]Ordere d By: John Brandon on 04-03-2025 RBC (Bld) [#/Vol] 3.41 10*6/uL Low 4.6-6.2 [facility] RESPIRATORY PANEL MOLECULARo n 04-03-2025 RP PANEL Normal [facility] Comment on above: Performed By: #### M 100.638 ####[facility] [address] [place], [address] Respiratory pathogens detect ion panel by molecular detection methodOrdered By: Dyana Hwang on 04-03-2025 Respiratory pathogens DNA and RNA panel ALICE+probe (Resp) [facility] Screening total cholesterol/ high density lipoprotein (HDL) cholesterol ratioOrdered By: Dyana Hwang on 04-03-2025 Cholesterol.total/Cholest santos in HDL [Mass ratio] 2.87 {ratio} [facility] Serum creatinine measurement (mass/volume)Ordered By: John Brandon on 04-03-2025 Creatinine [Mass/Vol] 1.88 mg/dL High 0.70-1.20 [facility] Serum globulin measurementOr dered By: Dyana Hwang on 04-03-2025 Globulin (S) [Mass/Vol] 2.4 g/dL 2.2-4.2 [facility] Serum glucose measurement (m ass/volume)Ordered By: John Brandon on 04-03-2025 Glucose [Mass/Vol] 255 mg/dL High 70-99 [facility] Serum or plasma alanine clayton otransferase (ALT) measurementOrdered By: Dyana Hwang on 04-03-2025 ALT [Catalytic activity/Vol] 16 U/L <47 [facility] Serum or plasma albumin nikkie urement (mass/volume)Ordered By: Dyana Hwang on 04-03-2025 Albumin [Mass/Vol] 3.6 g/dL 3.4-4.8 [facility] Serum or plasma albumin/glob ulin mass ratioOrdered By: Dyana Hwang on 04-03-2025 Albumin/Globulin [Mass ratio] 1.5 {ratio} 0.9-2.4 [facility] Serum or plasma alkaline dwight sphatase measurementOrdered By: Dyana Hwang on 04-03-2025 ALP [Catalytic activity/Vol] 80 U/L 40-129 [facility] Serum or plasma calcium nikkie urement (mass/volume)Ordered By: John Brandon on 04-03-2025 Calcium [Mass/Vol] 8.8 mg/dL 7.6-11.0 [facility] Serum or plasma cholesterol in HDL measurement (mass/volume)Ordered By: Dyana Hwang on 04-03-2025 Cholesterol in HDL [Mass/Vol] 48 mg/dL >40 [facility] Comment on above: National Cholesterol Education Program (NCEP) guidelines:<40 mg/dL: Low HDL-cholesterol (major risk factor for CHD)>= 60 mg/dL: High HDL-cholesterol (negative risk factor for CHD)HDL-cholesterol is affected by a number of factors, e.g. smoking, exercise, hormones, sex and age. Serum or plasma cholesterol measurement (mass/volume)Ordered By: Dyana Hwang on 04-03-2025 Cholesterol [Mass/Vol] 137 mg/dL <[address] [facility] Comment on above: Cholesterol level, D esirable <200 mg/dLBorderline high cholesterol 200-239 mg/dLHigh cholesterol >=240 mg/dLRecommendations of the NCEP Adult Treatment Panel for the following risk-cutoff thresholds for the [place] population. Serum or plasma urea nitroge n measurement (mass/volume)Ordered By: John Brandon on 04-03-2025 Urea nitrogen [Mass/Vol] 42 mg/dL High 4-19 [facility] Sodium levelOrdered By: Lesley Brandon on 04-03-2025 Sodium [Moles/Vol] 139 mmol/L 133-145 [facility] Strep pneumoniae Antig(UR,CS F)on 04-03-2025 STPAG Normal [facility] Comment on above: Performed By: #### M 300.4600 ####[facility] [address] [place], [place], [address] TSH DL <= 0.005 mIU/L QnOrde red By: Dyana Hwang on 04-03-2025 TSH Qn 0.530 uIU/mL 0.300-4.200 [facility] Thyroid Stim Hormone (TSH)on 04-03-2025 TSH 0.530 uIU/mL Normal 0.300-4.200 [facility] Comment on above: Performed By: #### L 500.4050, L501.9520, L509.7001, L500.4100 ####[facility] [address] [place], [place], [address] Total carbon dioxide measure mentOrdered By: Dyana Hwang on 04-03-2025 CO2 [Moles/Vol] 18 mmol/L [facility] Total proteinOrdered By: Aut yadiran Jaiden on 04-03-2025 Protein [Mass/Vol] 6.0 g/dL 5.9-8.4 [facility] Triglycerides measurementOrd ered By: Dyana Hwang on 04-03-2025 Triglyceride [Mass/Vol] 44 mg/dL <199 [facility] Comment on above: The drugs N-Acetylcy steine and Metamizole may falsely depress this assay. Normal range: <150 mg/dLBorderline High: 150-199 mg/dLHigh: 200-499 mg/dLVery High: >500 mg/dL Troponin T.cardiac [Mass/vol ume] in Serum or Plasma by High sensitivity methodOrdered By: John Brandon on 04-03-2025 Troponin T.cardiac High sensitivity method [Mass/Vol] 80 ng/L High <22 [facility] Comment on above: Critical Result(s) C alled at: 0515 by: DASIA JOSEPH Results read back by same. Troponin T.cardiac High sensitivity method [Mass/Vol] 76 ng/L High <22 [facility] Comment on above: Critical Result(s) C alled at:0312 by: DASIA BOJORQUEZ Results read back by same. Troponin T.cardiac High sensitivity method [Mass/Vol] 58 ng/L High <22 [facility] Comment on above: Critical Result(s) C alled at: 0058 by: DASIA ALBRIGHT Results read back by same. Urine Legionella pneumophila antigen detectionOrdered By: Dyana Hwang on 04-03-2025 L. pneumophila Ag Ql (U) [facility] Urine cultureOrdered By: Cesilia Hwang on 04-03-2025 Bacteria identified Cx Nom (U) Culture exhibits no growth. [facility] Venous Blood Gason 5 Blood Gas Type JUANITA Normal [facility] Comment on above: Performed By: #### L 9000.0810 ####[facility] [address] [place], [address] CO2 [Moles/Vol] 27 mmol/L Normal 23-33 [facility] Comment on above: Performed By: #### L 9000.0810 ####[facility] [address] [place], [address] Comment 18. 10. 30% Normal [facility] Comment on above: Performed By: #### L 9000.0810 ####[facility] [address] [place], [address] FI02 30.0 Normal [facility] Comment on above: Performed By: #### L 9000.0810 ####[facility] [address] [place], [address] HCO3 (Bld) [Moles/Vol] 26 mmol/L Normal 22-[address] [facility] Comment on above: Performed By: #### L 9000.0810 ####[facility] [address] [place], [address] O2 Delivery Dev BiPAP Normal [facility] Comment on above: Performed By: #### L 9000.0810 ####[facility] [address] [place], [address] SITE Not entered Normal [facility] Comment on above: Performed By: #### L 9000.0810 ####[facility] [address] [place], [address] VBG BE 0 mmol/L Normal -1.0-3.5 [facility] Comment on above: Performed By: #### L 9000.0810 ####[facility] [address] [place], [address] VBG pCO2 46.6 mmHg Normal 41-51 [facility] Comment on above: Performed By: #### L 9000.0810 ####[facility] [address] [place], [address] VBG pH 7.35 Normal 7.32-7.42 [facility] Comment on above: Performed By: #### L 9000.0810 ####[facility] [address] [place], [address] VBG PO2 44 mmHg High 25-40 [facility] Comment on above: Performed By: #### L 9000.0810 ####[facility] [address] [place], [address] VBG SO2 76 High 50-70 [facility] Comment on above: Performed By: #### L 9000.0810 ####[facility] [address] [place], [address] Venous blood base excess heriberto surementOrdered By: John Brandon on 04-03-2025 Base excess Calc (BldV) [Moles/Vol] 0 mmol/L -1.0-3.5 [facility] Venous blood bicarbonate heriberto surementOrdered By: John Brandon on 04-03-2025 HCO3 (Bld) [Moles/Vol] 26 mmol/L 22-[address] [facility] Venous blood oxygen saturati on measurementOrdered By: John Brandon on 04-03-2025 Oxygen saturation in Blood 76 % High 50-70 [facility] Venous blood pH measurementO rdered By: John Brandon on 04-03-2025 pH (BldV) 7.35 [pH] 7.32-7.42 [facility] Venous blood partial pressur e of carbon dioxide measurementOrdered By: John Brandon on 04-03-2025 CO2 (BldV) [Partial pressure] 46.6 mm[Hg] 41-51 [facility] Venous blood partial pressur e of oxygen measurementOrdered By: John Brandon on 04-03-2025 Oxygen (BldV) [Partial pressure] 44 mm[Hg] High 25-40 [facility] White blood cell (WBC) count Ordered By: John Brandon on 04-03-2025 WBC (Bld) [#/Vol] 15.7 10*3/uL High 4.4-11.0 [facility] BASIC METABOLIC PANEL WITH A NION GAPon 03-24-2025 Calcium [Mass/Vol] 8.6 mg/dL Normal 8.6-10.3 [facility] Comment on above: Performed By: #### 9 8235 #### [facility] [address], [address] [place], [place] [id number] Customer Care Representative: Jadon Velez MD Chloride [Moles/Vol] 104 mmol/L Normal 98-110 [facility] Comment on above: Performed By: #### 9 7895 #### [facility] [address], [address] [place], [place] [id number] Customer Care Representative: Jadon Velez MD CO2 [Moles/Vol] 23 mmol/L Normal 20-32 [facility] Comment on above: Performed By: #### 9 2498 #### [facility] [address], [address] [place] [address] Customer Care Representative: Jadon Velez MD Creatinine [Mass/Vol] 1.96 mg/dL High 0.70-1.[address] [facility] Comment on above: Performed By: #### 9 2498 #### [facility] [address], [address] [place] [address] Customer Care Representative: Jadon Velez MD ELECTROLYTE BALANCE 11 mmol/L (calc) Normal 7-17 [facility] Comment on above: Performed By: #### 9 2498 #### [facility] [address], [address] [place] [address] Customer Care Representative: Jadon Velez MD GFR/1.73 sq M.predicted among non-blacks MDRD (S/P/Bld) [Vol rate/Area] 34 mL/min/{1.73_m2} Low > OR = 60 [facility] Comment on above: Performed By: #### 9 2498 #### [facility] [address], [address] [place] [address] Customer Care Representative: Jadon Velez MD Glucose [Mass/Vol] 301 mg/dL High 65-99 [facility] Comment on above: Result Comment: Fasting reference interval For someone without known diabetes, a glucose value >125 mg/dL indicates that they may have diabetes and this should be confirmed with a follow-up test. Performed By: #### 9 2498 #### [facility] [address], [address] [place] [address] Customer Care Representative: Jadon Velez MD Potassium [Moles/Vol] 4.2 mmol/L Normal 3.5-5.[address] [facility] Comment on above: Performed By: #### 9 2498 #### [facility] [address], [address] [place] [address] Customer Care Representative: Jadon Velez MD Sodium [Moles/Vol] 138 mmol/L Normal 135-146 [facility] Comment on above: Performed By: #### 9 2498 #### [facility] [address] [place] [address], [address] [place] [address] Customer Care Representative: Jadon Velez MD Urea nitrogen [Mass/Vol] 39 mg/dL High 7-25 [facility] Comment on above: Performed By: #### 9 2498 #### [facility] of [address], [address] [place] [address] Customer Care Representative: Jadon Velez MD Urea nitrogen/Creatinine [Mass ratio] 20 mg/mg Normal 6- [facility] Comment on above: Performed By: #### 9 2498 #### [facility] of [address], [address] [place] [address] Customer Care Representative: Jadon Velez MD APTT HEPARIN COVERAGEon aPTT Coag (Bld) [Time] 86 s High 23-34 [facility] Comment on above: Order Comment: Thera peutic range for APTT's is 68 - 104 seconds Performed By: #### 4 6848 ####[facility] [address] [address] Moody Martinez M.D. 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 Performed By: #### 4 6124 #### [facility] [address] [place], [place] [address] Moody Martinez M.D. 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 [id number] CBCon 03-05-2025 AUTO NRBC 0.0 % Normal [facility] Comment on above: Performed By: #### 4 5218 #### [facility] [address] [address] Moody Martinez M.D. [id number] AUTO NRBC ABS COUNT 0.00 K/mcL Normal 0.00-0.00 [facility] Comment on above: Performed By: #### 4 5218 #### [facility] [address] [address] Moody Martinez M.D. [id number] Erythrocyte distribution width (RBC) [Ratio] 13.0 % Normal 11.6-14.8 [facility] Comment on above: Performed By: #### 4 5218 #### [facility] [address] [address] Moody Martinez M.D. [id number] Hematocrit (Bld) [Volume fraction] 28.4 % Low 41.0-53.0 [facility] Comment on above: Performed By: #### 4 5218 #### [facility] [address] [address] Moody Martinez M.D. [id number] Hemoglobin (Bld) [Mass/Vol] 9.3 g/dL Low 13.5-17.5 [facility] Comment on above: Performed By: #### 4 5218 #### [facility] [address] [address] Moody Martinez M.D. [id number] MCH (RBC) [Entitic mass] 30.3 pg Normal 26.0-34.0 [facility] Comment on above: Performed By: #### 4 5218 #### [facility] [address] [address] Moody Martinez M.D. [id number] MCV (RBC) [Entitic vol] 92.5 fL Normal 80.0-100.0 [facility] Comment on above: Performed By: #### 4 5218 #### [facility] [address] [address] Moody Martinez M.D. [id number] MEAN CORPUSCULAR HEMOGLOBIN CONC 32.7 g/dL Normal 31.0-37.0 [facility] Comment on above: Performed By: #### 4 5218 #### [facility] [address] [address] Moody Martinez M.D. [id number] Platelet mean volume (Bld) [Entitic vol] 11.8 fL Normal 9.4-12.4 [facility] Comment on above: Performed By: #### 4 5218 #### [facility] [address] [address] Moody Martinez M.D. [id number] Platelets (Bld) [#/Vol] 191 10*3/uL Normal 150-400 [facility] Comment on above: Performed By: #### 4 5218 #### [facility] [address] [address] Moody Martinez M.D. [id number] RBC (Bld) [#/Vol] 3.07 10*6/uL Low 4.50-5.90 [facility] Comment on above: Performed By: #### 4 5218 #### [facility] [address] [address] Moody Martinez M.D. [id number] WBC (Bld) [#/Vol] 9.14 10*3/uL Normal 4.50-11.00 [facility] Comment on above: Performed By: #### 4 5218 ####[facility] [address] [address] Moody Martinez M.D. [id number] MAGNESIUM LEVELon 03-05-2025 Magnesium [Mass/Vol] 2.2 mg/dL Normal 1.6-2.4 [facility] Comment on above: Performed By: #### 4 6109 #### [facility] [address] [address] Moody Martinez M.D. [id number] POC GLUCOSE - [facility] 025 Glucose [Mass/Vol] 249 mg/dL High [address] [place] [address] Comment on above: Performed By: #### 4 6932 #### [facility] [address] [address] Moody Martinez M.D. [id number] Glucose [Mass/Vol] 188 mg/dL [address] Comment on above: Performed By: #### 4 6932 ####[facility] [address] [address] Moody Martinez M.D. [id number] Glucose [Mass/Vol] 115 mg/dL [address] Comment on above: Performed By: #### 4 6932 ####[facility] [address] [address] Moody Martinez M.D. [id number] POTASSIUM LEVELon 03-05-2025 Potassium [Moles/Vol] 3.4 mmol/L Low 3.5-5.1 [facility] Comment on above: Performed By: #### 4 6351 ####[facility] [address] [address] Moody Martinez M.D. [id number] APTT HEPARIN COVERAGEon aPTT Coag (Bld) [Time] 72 s High 23-34 [facility] Comment on above: Order Comment: Thera peutic range for APTT's is 68 - 104 seconds Performed By: #### 4 7674 #### [facility] [address] [place], [place] [address] Moody Martinez M.D. [id number] BASIC METABOLIC PANELon 05-0 Anion gap [Moles/Vol] 16 mmol/L Normal 10-20 [facility] Comment on above: Order Comment: [facility] has implemented the eGFR calculation approach that does not have a coefficient for race that conforms to the NKF-ASN Task Force Recommendations. Performed By: #### 4 6124 #### [facility] [address] [address] Moody Martinez M.D. [id number] Calcium [Mass/Vol] 8.3 mg/dL Low 8.4-10.2 [facility] [place] [facility] Comment on above: Order Comment: [facility] has implemented the eGFR calculation approach that does not have a coefficient for race that conforms to the NKF-ASN Task Force Recommendations. Performed By: #### 4 6124 #### [facility] [address] [address] Moody Martinez M.D. [id number] Chloride [Moles/Vol] 103 mmol/L Normal 98-108 [facility] Comment on above: Order Comment: [facility] has implemented the eGFR calculation approach that does not have a coefficient for race that conforms to the NKF-ASN Task Force Recommendations. Performed By: #### 4 6124 #### [facility] [address] [address] Moody Martinez M.D. [id number] Creatinine [Mass/Vol] 1.89 mg/dL High 0.80-1.30 [facility] Comment on above: Order Comment: [facility] has implemented the eGFR calculation approach that does not have a coefficient for race that conforms to the NKF-ASN Task Force Recommendations. Performed By: #### 4 6124 #### [facility] [address] [address] Moody Martinez M.D. [id number] EGFR 35 mL/min/1.73 m2 Low >=60 [facility] Comment on above: Order Comment: [facility] has implemented the eGFR calculation approach that does not have a coefficient for race that conforms to the NKF-ASN Task Force Recommendations. Result Comment: Albin mated GFR was calculated using the 2020 CKD-EPI creatinine equation. Performed By: #### 4 6151 ####[facility] [address] [address] Moody Martinez M.D. [id number] Glucose [Mass/Vol] 190 mg/dL High 65-99 [facility] [place] [facility] Comment on above: Order Comment: [facility] has implemented the eGFR calculation approach that does not have a coefficient for race that conforms to the NKF-ASN Task Force Recommendations. Performed By: #### 4 6145 ####[facility] [address] [address] Moody Martinez M.D. [id number] HCO3 (Bld) [Moles/Vol] 25 mmol/L Normal 21-32 [facility] Comment on above: Order Comment: [facility] has implemented the eGFR calculation approach that does not have a coefficient for race that conforms to the NKF-ASN Task Force Recommendations. Performed By: #### 4 6149 ####[facility] [address] [address] Moody Martinez M.D. [id number] Potassium [Moles/Vol] 3.5 mmol/L Normal 3.5-5.1 [facility] Comment on above: Order Comment: [facility] has implemented the eGFR calculation approach that does not have a coefficient for race that conforms to the NKF-ASN Task Force Recommendations. Performed By: #### 4 6124 ####[facility] [address] [address] Moody Martinez M.D. [id number] Sodium [Moles/Vol] 140 mmol/L Normal 135-145 [facility] [place] [facility] Comment on above: Order Comment: [facility] has implemented the eGFR calculation approach that does not have a coefficient for race that conforms to the NKF-ASN Task Force Recommendations. Performed By: #### 4 6124 ####[facility] [address] [address] Moody Martinez M.D. [id number] Urea nitrogen [Mass/Vol] 45 mg/dL High 8-25 [facility] Comment on above: Order Comment: [facility] has implemented the eGFR calculation approach that does not have a coefficient for race that conforms to the NKF-ASN Task Force Recommendations. Performed By: #### 4 6124 #### [facility] [address] [address] Moody Martinez M.D. [id number] Urea nitrogen/Creatinine [Mass ratio] 23.8 mg/mg High 10.0-20.0 [facility] Comment on above: Order Comment: [facility] has implemented the eGFR calculation approach that does not have a coefficient for race that conforms to the NKF-ASN Task Force Recommendations. Performed By: #### 4 6124 #### [facility] [address] [address] Moody Martinez M.D. [id number] CBCon 03-04-2025 AUTO NRBC 0.0 % Normal [facility] Comment on above: Performed By: #### 4 5218 #### [facility] [address] [address] Moody Martinez M.D. [id number] AUTO NRBC ABS COUNT 0.00 K/mcL Normal 0.00-0.00 [facility] Comment on above: Performed By: #### 4 5218 #### [facility] [address] [id number] Moody Martinez M.D. [id number] Erythrocyte distribution width (RBC) [Ratio] 13.1 % Normal 11.6-14.8 [facility] Comment on above: Performed By: #### 4 5218 #### [facility] [address] [address] Moody Martinez M.D. [id number] Hematocrit (Bld) [Volume fraction] 28.1 % Low 41.0-53.0 [facility] Comment on above: Performed By: #### 4 5218 #### [facility] [address] [address] Moody Martinez M.D. [id number] Hemoglobin (Bld) [Mass/Vol] 9.0 g/dL Low 13.5-17.5 [facility] Comment on above: Performed By: #### 4 5218 #### [facility] [address] [address] Moody Martinez M.D. [id number] MCH (RBC) [Entitic mass] 30.6 pg Normal 26.0-34.0 [facility] Comment on above: Performed By: #### 4 5218 #### [facility] [address] [address] Moody Martinez M.D. [id number] MCV (RBC) [Entitic vol] 95.6 fL Normal 80.0-100.0 [facility] Comment on above: Performed By: #### 4 5218 #### [facility] [address] [address] Moody Martinez M.D. [id number] MEAN CORPUSCULAR HEMOGLOBIN CONC 32.0 g/dL Normal 31.0-37.0 [facility] Comment on above: Performed By: #### 4 5218 #### [facility] [address] [address] Moody Martinez M.D. [id number] Platelet mean volume (Bld) [Entitic vol] 11.8 fL Normal 9.4-12.4 [facility] Comment on above: Performed By: #### 4 5218 #### [facility] [address] [address] Moody Martinez M.D. [id number] Platelets (Bld) [#/Vol] 175 10*3/uL Normal 150-400 [facility] Comment on above: Performed By: #### 4 5218 #### [facility] [address] [address] Moody Martinez M.D. [id number] RBC (Bld) [#/Vol] 2.94 10*6/uL Low 4.50-5.90 [facility] Comment on above: Performed By: #### 4 5218 #### [facility] [address] [id number] Moody Martinez M.D. [id number] WBC (Bld) [#/Vol] 8.08 10*3/uL Normal 4.50-11.00 [facility] Comment on above: Performed By: #### 4 5218 #### [facility] [address] [address] Moody Martinez M.D. [id number] MAGNESIUM LEVELon 03-04-2025 Magnesium [Mass/Vol] 2.2 mg/dL Normal 1.6-2.4 [facility] Comment on above: Performed By: #### 4 6109 #### [facility] [address] [address] Moody Martinez M.D. [id number] POC GLUCOSE - [facility] 025 Glucose [Mass/Vol] 51 mg/dL Off scale low [address] [place] [address] Comment on above: Order Comment: Criti christian result acted upon time of test. Test performed at bedside. Performed By: #### 4 6993 #### [facility] [address] [address] Moody Martinez M.D. [id number] Glucose [Mass/Vol] 354 mg/dL [address] Comment on above: Performed By: #### 4 6993 #### [facility] [address] [address] Moody Martinez M.D. [id number] Glucose [Mass/Vol] 338 mg/dL [address] Comment on above: Performed By: #### 4 6982 #### [facility] [address] [address] Moody Martinez M.D. [id number] Glucose [Mass/Vol] 258 mg/dL [address] Comment on above: Performed By: #### 4 5736 ####[facility] [address] [id number] Moody Martinez M.D. [id number] Glucose [Mass/Vol] 242 mg/dL High 65-99 [facility] [place] [facility] Comment on above: Performed By: #### 4 6932 #### [facility] [address] [address] Moody Martinez M.D. [id number] POTASSIUM LEVELon 03-04-2025 Potassium [Moles/Vol] 4.1 mmol/L Normal 3.5-5.1 [facility] Comment on above: Result Comment: Slig htly Hemolyzed Performed By: #### 4 6351 ####[facility] [address] [address] Moody Martinez M.D. [id number] TROPONIN (ONCE)on 03-04-2025 BASELINE TROPONIN T NG/L 1494 ng/L Off scale high <=22 [facility] Comment on above: Performed By: #### L [id number] ####[facility] [address] [address] Moody Martinez M.D. [id number] TROPONIN T INTERPRETATION Possible acute cardiac injury. Normal [facility] Comment on above: Performed By: #### L [id number] ####[facility] [address] [address] Moody Martinez M.D. [id number] APTT HEPARIN COVERAGEon 05 aPTT Coag (Bld) [Time] 82 s High 23-34 [facility] Comment on above: Order Comment: Thera peutic range for APTT's is 68 - 104 seconds Performed By: #### 4 6932 #### [facility] [address] [address] Moody Martinez M.D. [id number] aPTT Coag (Bld) [Time] 92 s High 23-34 [facility] Comment on above: Order Comment: Thera peutic range for APTT's is 68 - 104 seconds Performed By: #### 4 6848 ####[facility] [address] [address] Moody Martinez M.D. [id number] aPTT Coag (Bld) [Time] 67 s High 23-34 [facility] Comment on above: Order Comment: Injur y/Trauma or Illness?:Illness/Other How long have you had these symptoms (acute/chronic)?:Acute Reason for exam?:cross clamp of aorta for CPB Type of Exam?:Initial Additional signs and symptoms?:cp Performed By: #### 4 6848 #### [facility] [address] [address] Moody Martinez M.D. [id number] BASIC METABOLIC PANELon 05-0 Anion gap [Moles/Vol] 15 mmol/L Normal 10-20 [facility] Comment on above: Order Comment: [facility] has implemented the eGFR calculation approach that does not have a coefficient for race that conforms to the NKF-ASN Task Force Recommendations. Performed By: #### 4 6124 #### [facility] [address] [address] Moody Martinez M.D. [id number] Calcium [Mass/Vol] 8.3 mg/dL Low 8.4-10.2 [facility] [place] [facility] Comment on above: Order Comment: [facility] has implemented the eGFR calculation approach that does not have a coefficient for race that conforms to the NKF-ASN Task Force Recommendations. Performed By: #### 4 6124 #### [facility] [address] [address] Moody Martinez M.D. [id number] Chloride [Moles/Vol] 103 mmol/L Normal 98-108 [facility] Comment on above: Order Comment: [facility] has implemented the eGFR calculation approach that does not have a coefficient for race that conforms to the NKF-ASN Task Force Recommendations. Performed By: #### 4 6124 #### [facility] [address] [address] Moody Martinez M.D. [id number] Creatinine [Mass/Vol] 2.09 mg/dL High 0.80-1.30 [facility] Comment on above: Order Comment: [facility] has implemented the eGFR calculation approach that does not have a coefficient for race that conforms to the NKF-ASN Task Force Recommendations. Performed By: #### 4 6188 #### [facility] [address] [address] Moody Martinez M.D. [id number] EGFR 31 mL/min/1.73 m2 Low >=60 [facility] Comment on above: Order Comment: [facility] has implemented the eGFR calculation approach that does not have a coefficient for race that conforms to the NKF-ASN Task Force Recommendations. Result Comment: Albin mated GFR was calculated using the 2020 CKD-EPI creatinine equation. Performed By: #### 4 6197 #### [facility] [address] [address] Moody Martinez M.D. [id number] Glucose [Mass/Vol] 240 mg/dL High 65-99 [facility] [place] [facility] Comment on above: Order Comment: [facility] has implemented the eGFR calculation approach that does not have a coefficient for race that conforms to the NKF-ASN Task Force Recommendations. Performed By: #### 4 6166 #### LAB [address] [address] Moody Martinez M.D. [id number] HCO3 (Bld) [Moles/Vol] 26 mmol/L Normal 21-32 [facility] Comment on above: Order Comment: [facility] has implemented the eGFR calculation approach that does not have a coefficient for race that conforms to the NKF-ASN Task Force Recommendations. Performed By: #### 4 6160 ####[facility] LAB [address] [address] Moody Martinez M.D. [id number] Potassium [Moles/Vol] 3.6 mmol/L Normal 3.5-5.1 [facility] Comment on above: Order Comment: [facility] has implemented the eGFR calculation approach that does not have a coefficient for race that conforms to the NKF-ASN Task Force Recommendations. Performed By: #### 4 6136 ####[facility] LAB [address] [id number] Moody Martinez M.D. [id number] Sodium [Moles/Vol] 140 mmol/L Normal 135-145 [facility] [place] [facility] Comment on above: Order Comment: [facility] has implemented the eGFR calculation approach that does not have a coefficient for race that conforms to the NKF-ASN Task Force Recommendations. Performed By: #### 4 6124 #### LAB [address] [address] Moody Martinez M.D. [id number] Urea nitrogen [Mass/Vol] 49 mg/dL High 8-25 [facility] Comment on above: Order Comment: [facility] has implemented the eGFR calculation approach that does not have a coefficient for race that conforms to the NKF-ASN Task Force Recommendations. Performed By: #### 4 6124 #### LAB [address] [address] Moody Martinez M.D. [id number] Urea nitrogen/Creatinine [Mass ratio] 23.4 mg/mg High 10.0-20.0 [facility] Comment on above: Order Comment: [facility] has implemented the eGFR calculation approach that does not have a coefficient for race that conforms to the NKF-ASN Task Force Recommendations. Performed By: #### 4 6124 #### LAB [address] [address] Moody Martinez M.D. [id number] CBCon 03-03-2025 AUTO NRBC 0.0 % Normal [facility] Comment on above: Performed By: #### 4 [id number] #### LAB [address] [address] Moody Martinez M.D. [id number] AUTO NRBC ABS COUNT 0.00 K/mcL Normal 0.00-0.00 [facility] Comment on above: Performed By: #### 4 [id number] #### LAB [address] [address] Moody Martinez M.D. [id number] Erythrocyte distribution width (RBC) [Ratio] 13.5 % Normal 11.6-14.8 [facility] Comment on above: Performed By: #### 4 5218 #### LAB [address] [address] Moody Martinez M.D. [id number] Hematocrit (Bld) [Volume fraction] 28.5 % Low 41.0-53.0 [facility] Comment on above: Performed By: #### 4 5218 #### LAB [address] [address] Moody Martinez M.D. [id number] Hemoglobin (Bld) [Mass/Vol] 9.3 g/dL Low 13.5-17.5 [facility] Comment on above: Performed By: #### 4 [id number] #### LAB [address] [address] Moody Martinez M.D. [id number] MCH (RBC) [Entitic mass] 30.8 pg Normal 26.0-34.0 [facility] Comment on above: Performed By: #### 4 [id number] #### LAB [address] [address] Moody Martinez M.D. [id number] MCV (RBC) [Entitic vol] 94.4 fL Normal 80.0-100.0 [facility] Comment on above: Performed By: #### 4 [id number] #### LAB [address] [address] Moody Martinez M.D. [id number] MEAN CORPUSCULAR HEMOGLOBIN CONC 32.6 g/dL Normal 31.0-37.0 [facility] Comment on above: Performed By: #### 4 [id number] #### LAB [address] [address] Moody Martinez M.D. [id number] Platelet mean volume (Bld) [Entitic vol] 11.8 fL Normal 9.4-12.4 [facility] Comment on above: Performed By: #### 4 [id number] #### LAB [address] [address] Moody Martinez M.D. [id number] Platelets (Bld) [#/Vol] 159 10*3/uL Normal 150-400 [facility] Comment on above: Performed By: #### 4 [id number] #### LAB [address] [address] Moody Martinez M.D. [id number] RBC (Bld) [#/Vol] 3.02 10*6/uL Low 4.50-5.90 [facility] Comment on above: Performed By: #### 4 5218 ####[facility] [address] [address] Moody Martinez M.D. [id number] WBC (Bld) [#/Vol] 10.19 10*3/uL Normal 4.50-11.00 [facility] Comment on above: Performed By: #### 4 [id number] #### LAB [address] [address] Moody Martinez M.D. [id number] MAGNESIUM LEVELon 03-03-2025 Magnesium [Mass/Vol] 2.3 mg/dL Normal 1.6-2.4 [facility] Comment on above: Performed By: #### 4 6109 ####[facility] [address] [address] Moody Martinez M.D. [id number] POC GLUCOSE [facility] 025 Glucose [Mass/Vol] 221 mg/dL High [address] [place] [address] Comment on above: Performed By: #### L [id number] #### [facility] [address] [address] Moody Martinez M.D. [id number] Glucose [Mass/Vol] 189 mg/dL High [address] [place] [address] Comment on above: Performed By: #### 4 6932 ####[facility] [address] [address] Moody Martinez M.D. [id number] Glucose [Mass/Vol] 91 mg/dL Normal [address] [place] [address] Comment on above: Performed By: #### 4 6932 ####[facility] [address] [address] Moody Martinez M.D. [id number] Glucose [Mass/Vol] 146 mg/dL High 65-99 [facility] [place] [facility] Comment on above: Performed By: #### 4 6932 #### LAB [address] [address] Moody Martinez M.D. [id number] TROPONIN (ONCE)on 03-03-2025 BASELINE TROPONIN T NG/L 1524 ng/L Off scale high <=22 [facility] Comment on above: Performed By: #### 4 6932 #### LAB [address] [address] Moody Martinez M.D. [id number] TROPONIN T INTERPRETATION Possible acute cardiac injury. Normal [facility] Comment on above: Performed By: #### 4 6932 #### LAB [address] [address] Moody Martinez M.D. [id number] APTT HEPARIN COVERAGEon aPTT Coag (Bld) [Time] 97 s High 23-34 [facility] Comment on above: Order Comment: Thera peutic range for APTT's is 68 - 104 seconds Performed By: #### 4 6848 #### LAB [address] [address] Moody Martinez M.D. [id number] BASIC METABOLIC PANELon Anion gap [Moles/Vol] 17 mmol/L Normal 10-20 [facility] Comment on above: Order Comment: [facility] has implemented the eGFR calculation approach that does not have a coefficient for race that conforms to the NKF-ASN Task Force Recommendations. Performed By: #### 4 6124 ####[facility] [address] [address] Moody Martinez M.D. [id number] Calcium [Mass/Vol] 8.7 mg/dL Normal 8.4-10.2 [facility] [place] [facility] Comment on above: Order Comment: [facility] has implemented the eGFR calculation approach that does not have a coefficient for race that conforms to the NKF-ASN Task Force Recommendations. Performed By: #### 4 6124 #### LAB [address] [id number] Moody Martinez M.D. [id number] Chloride [Moles/Vol] 101 mmol/L Normal 98-108 [facility] Comment on above: Order Comment: [facility] has implemented the eGFR calculation approach that does not have a coefficient for race that conforms to the NKF-ASN Task Force Recommendations. Performed By: #### 4 6124 #### LAB [address] [address] Moody Martinez M.D. [id number] Creatinine [Mass/Vol] 2.16 mg/dL High 0.80-1.30 [facility] Comment on above: Order Comment: [facility] has implemented the eGFR calculation approach that does not have a coefficient for race that conforms to the NKF-ASN Task Force Recommendations. Performed By: #### 4 6124 #### LAB [address] [address] Moody Martinez M.D. [id number] EGFR 30 mL/min/1.73 m2 Low >=60 [facility] Comment on above: Order Comment: [facility] has implemented the eGFR calculation approach that does not have a coefficient for race that conforms to the NKF-ASN Task Force Recommendations. Result Comment: Albin mated GFR was calculated using the 2020 CKD-EPI creatinine equation. Performed By: #### 4 6124 #### LAB [address] [address] Moody Martinez M.D. [id number] Glucose [Mass/Vol] 170 mg/dL High 65-99 [facility] [place] [facility] Comment on above: Order Comment: [facility] has implemented the eGFR calculation approach that does not have a coefficient for race that conforms to the NKF-ASN Task Force Recommendations. Performed By: #### 4 6124 #### LAB [address] [address] Moody Martinez M.D. [id number] HCO3 (Bld) [Moles/Vol] 25 mmol/L Normal 21-32 [facility] Comment on above: Order Comment: [facility] has implemented the eGFR calculation approach that does not have a coefficient for race that conforms to the NKF-ASN Task Force Recommendations. Performed By: #### 4 6124 #### LAB [address] [address] Moody Martinez M.D. [id number] Potassium [Moles/Vol] 3.7 mmol/L Normal 3.5-5.1 [facility] Comment on above: Order Comment: [facility] has implemented the eGFR calculation approach that does not have a coefficient for race that conforms to the NKF-ASN Task Force Recommendations. Performed By: #### 4 6124 #### LAB [address] [address] Moody Martinez M.D. [id number] Sodium [Moles/Vol] 139 mmol/L Normal 135-145 [facility] [place] [facility] Comment on above: Order Comment: [facility] has implemented the eGFR calculation approach that does not have a coefficient for race that conforms to the NKF-ASN Task Force Recommendations. Performed By: #### 4 6124 #### LAB [address] [address] Moody Martinez M.D. [id number] Urea nitrogen [Mass/Vol] 44 mg/dL High 8-25 [facility] Comment on above: Order Comment: [facility] has implemented the eGFR calculation approach that does not have a coefficient for race that conforms to the NKF-ASN Task Force Recommendations. Performed By: #### 4 6124 #### LAB [address] [address] Moody Martinez M.D. [id number] Urea nitrogen/Creatinine [Mass ratio] 20.4 mg/mg High 10.0-20.0 [facility] Comment on above: Order Comment: [facility] has implemented the eGFR calculation approach that does not have a coefficient for race that conforms to the NKF-ASN Task Force Recommendations. Performed By: #### 4 6124 #### LAB [address] [address] Moody Martinez M.D. [id number] CBCon 03-02-2025 AUTO NRBC 0.0 % Normal [facility] Comment on above: Order Comment: Injur y/Trauma or Illness?:Illness/Other How long have you had these symptoms (acute/chronic)?:Acute Reason for exam?:sob History of cancer?:. Surgeries, chemotherapy, or radiation?:cardiac catheterization Type of Exam?:Initial Additional signs and symptoms?:n Performed By: #### 4 [id number] #### LAB [address] [address] Moody Martinez M.D. [id number] AUTO NRBC ABS COUNT 0.00 K/mcL Normal 0.00-0.00 [facility] Comment on above: Order Comment: Injur y/Trauma or Illness?:Illness/Other How long have you had these symptoms (acute/chronic)?:Acute Reason for exam?:sob History of cancer?:. Surgeries, chemotherapy, or radiation?:cardiac catheterization Type of Exam?:Initial Additional signs and symptoms?:n Performed By: #### 4 5218 #### LAB [address] [address] Moody Martinez M.D. [id number] Erythrocyte distribution width (RBC) [Ratio] 13.4 % Normal 11.6-14.8 [facility] Comment on above: Order Comment: Injur y/Trauma or Illness?:Illness/Other How long have you had these symptoms (acute/chronic)?:Acute Reason for exam?:sob History of cancer?:. Surgeries, chemotherapy, or radiation?:cardiac catheterization Type of Exam?:Initial Additional signs and symptoms?:n Performed By: #### 4 5218 #### LAB [address] [address] Moody Martinez M.D. [id number] Hematocrit (Bld) [Volume fraction] 31.3 % Low 41.0-53.0 [facility] Comment on above: Order Comment: Injur y/Trauma or Illness?:Illness/Other How long have you had these symptoms (acute/chronic)?:Acute Reason for exam?:sob History of cancer?:. Surgeries, chemotherapy, or radiation?:cardiac catheterization Type of Exam?:Initial Additional signs and symptoms?:n Performed By: #### 4 5218 #### LAB [address] [address] Moody Martinez M.D. [id number] Hemoglobin (Bld) [Mass/Vol] 10.3 g/dL Low 13.5-17.5 [facility] Comment on above: Order Comment: Injur y/Trauma or Illness?:Illness/Other How long have you had these symptoms (acute/chronic)?:Acute Reason for exam?:sob History of cancer?:. Surgeries, chemotherapy, or radiation?:cardiac catheterization Type of Exam?:Initial Additional signs and symptoms?:n Performed By: #### 4 5218 #### LAB [address] [address] Moody Martinez M.D. [id number] MCH (RBC) [Entitic mass] 31.0 pg Normal 26.0-34.0 [facility] Comment on above: Order Comment: Injur y/Trauma or Illness?:Illness/Other How long have you had these symptoms (acute/chronic)?:Acute Reason for exam?:sob History of cancer?:. Surgeries, chemotherapy, or radiation?:cardiac catheterization Type of Exam?:Initial Additional signs and symptoms?:n Performed By: #### 4 5218 #### LAB [address] [address] Moody Martinez M.D. [id number] MCV (RBC) [Entitic vol] 94.3 fL Normal 80.0-100.0 [facility] Comment on above: Order Comment: Injur y/Trauma or Illness?:Illness/Other How long have you had these symptoms (acute/chronic)?:Acute Reason for exam?:sob History of cancer?:. Surgeries, chemotherapy, or radiation?:cardiac catheterization Type of Exam?:Initial Additional signs and symptoms?:n Performed By: #### 4 [id number] #### LAB [address] [address] Moody Martinez M.D. [id number] MEAN CORPUSCULAR HEMOGLOBIN CONC 32.9 g/dL Normal 31.0-37.0 [facility] Comment on above: Order Comment: Injur y/Trauma or Illness?:Illness/Other How long have you had these symptoms (acute/chronic)?:Acute Reason for exam?:sob History of cancer?:. Surgeries, chemotherapy, or radiation?:cardiac catheterization Type of Exam?:Initial Additional signs and symptoms?:n Performed By: #### 4 5218 #### LAB [address] [address] Moody Martinez M.D. [id number] Platelet mean volume (Bld) [Entitic vol] 11.6 fL Normal 9.4-12.4 [facility] Comment on above: Order Comment: Injur y/Trauma or Illness?:Illness/Other How long have you had these symptoms (acute/chronic)?:Acute Reason for exam?:sob History of cancer?:. Surgeries, chemotherapy, or radiation?:cardiac catheterization Type of Exam?:Initial Additional signs and symptoms?:n Performed By: #### 4 5218 #### LAB [address] [address] Moody Martinez M.D. [id number] Platelets (Bld) [#/Vol] 176 10*3/uL Normal 150-400 [facility] Comment on above: Order Comment: Injur y/Trauma or Illness?:Illness/Other How long have you had these symptoms (acute/chronic)?:Acute Reason for exam?:sob History of cancer?:. Surgeries, chemotherapy, or radiation?:cardiac catheterization Type of Exam?:Initial Additional signs and symptoms?:n Performed By: #### 4 5218 #### LAB [address] [address] Moody Martinez M.D. [id number] RBC (Bld) [#/Vol] 3.32 10*6/uL Low 4.50-5.90 [facility] Comment on above: Order Comment: Injur y/Trauma or Illness?:Illness/Other How long have you had these symptoms (acute/chronic)?:Acute Reason for exam?:sob History of cancer?:. Surgeries, chemotherapy, or radiation?:cardiac catheterization Type of Exam?:Initial Additional signs and symptoms?:n Performed By: #### 4 5218 #### LAB [address] [address] Moody Martinez M.D. [id number] WBC (Bld) [#/Vol] 14.08 10*3/uL High 4.50-11.00 [facility] Comment on above: Order Comment: Injur y/Trauma or Illness?:Illness/Other How long have you had these symptoms (acute/chronic)?:Acute Reason for exam?:sob History of cancer?:. Surgeries, chemotherapy, or radiation?:cardiac catheterization Type of Exam?:Initial Additional signs and symptoms?:n Performed By: #### 4 5218 #### LAB [address] [address] Moody Martinez M.D. [id number] AUTO NRBC 0.0 % Normal [facility] Comment on above: Performed By: #### 4 5218 #### LAB [address] [address] Moody Martinez M.D. [id number] AUTO NRBC ABS COUNT 0.00 K/mcL Normal 0.00-0.00 [facility] Comment on above: Performed By: #### 4 5218 #### LAB [address] [address] Moody Martinez M.D. [id number] Erythrocyte distribution width (RBC) [Ratio] 13.4 % Normal 11.6-14.8 [facility] Comment on above: Performed By: #### 4 5218 #### LAB [address] [address] Moody Martinez M.D. [id number] Hematocrit (Bld) [Volume fraction] 34.4 % Low 41.0-53.0 [facility] Comment on above: Performed By: #### 4 5218 #### LAB [address] [address] Moody Martinez M.D. [id number] Hemoglobin (Bld) [Mass/Vol] 11.2 g/dL Low 13.5-17.5 [facility] Comment on above: Performed By: #### 4 5218 #### LAB [address] [address] Moody Martinez M.D. [id number] MCH (RBC) [Entitic mass] 31.1 pg Normal 26.0-34.0 [facility] Comment on above: Performed By: #### 4 5218 #### LAB [address] [address] Moody Martinez M.D. [id number] MCV (RBC) [Entitic vol] 95.6 fL Normal 80.0-100.0 [facility] Comment on above: Performed By: #### 4 5218 #### LAB [address] [address] Moody Martinez M.D. [id number] MEAN CORPUSCULAR HEMOGLOBIN CONC 32.6 g/dL Normal 31.0-37.0 [facility] Comment on above: Performed By: #### 4 5218 #### LAB [address] [address] Moody Martinez M.D. [id number] Platelet mean volume (Bld) [Entitic vol] 11.4 fL Normal 9.4-12.4 [facility] Comment on above: Performed By: #### 4 5218 #### LAB [address] [address] Moody Martinez M.D. [id number] Platelets (Bld) [#/Vol] 189 10*3/uL Normal 150-400 [facility] Comment on above: Performed By: #### 4 5218 #### LAB [address] [address] Moody Martinez M.D. [id number] RBC (Bld) [#/Vol] 3.60 10*6/uL Low 4.50-5.90 [facility] Comment on above: Performed By: #### 4 5218 #### LAB [address] [address] Moody Martinez M.D. [id number] WBC (Bld) [#/Vol] 11.96 10*3/uL High 4.50-11.00 [facility] Comment on above: Performed By: #### 4 5218 #### LAB [address] [place], [place] [address] Moody Martinez M.D. [id number] CONSULTon 03-02-2025 CONSULT General Cardiology Inpatient Consult Heart & Vascular [facility] 03/02/2025 Diogenes Garay MD [facility] Patient: Enoc Armando Date of : [...] plan for further details. Diogenes Garay MD [facility] Non-Invasive Cardiology [facility] Heart and Vascular Subjective Reason for [...] mmHg. 10/27/24 [facility] Left Main The vessel is moderate in [...] Skin: Negative. (more content not included)... Normal [facility] ECHOCARDIOGRAM COMPLETEon ECHOCARDIOGRAM COMPLETE Patient Info Name: ENOC ARMANDO Age: 79 years : 1945 Gender: Male Ht: 170 cm Wt: 64 kg BSA: 1.74 m2 HR: 81 bpm BP: 112 / 57 mmHg Heart Rhythm: Sinus Rhythm Technical Quality: Good Exam Date: 03/02/2025 2:27 PM Patient Status: Inpatient Newswriter: Mikel Olvera RCDS Exam Type: ECHOCARDIOGRAM COMPLETE Study Info Indications - Chest pain R07.9 - Chest pain, unspecified Referring Physician: TANISHA Alves; [id number] BMI: 22.08 kg/m2 Summary 1. Left ventricular [...] Factors Hypertension: Yes Dyslipidemia: Yes Myocardial Infarction ([place]): No Congestive Heart Failure (CHF): Hx CHF [...] mmHg MV VTI 35 cm MV Decel [place] 390 cm/s2 MV PHT 75 ms MV [...] Annular TDI (more content not included)... Normal [facility] MAGNESIUM LEVELon 03-02-2025 Magnesium [Mass/Vol] 2.2 mg/dL Normal 1.6-2.4 [facility] Comment on above: Performed By: #### 4 6109 ####[facility] [address] [place], [place] [address] Moody Martinez M.D. [id number] NT PRO BNPon 03-02-2025 Natriuretic peptide B (Bld) [Mass/Vol] 73576 pg/mL High 0-300 [facility] Comment on above: Order Comment: Pride Study Cut-offsRule In:< /= 50 Years >450 pg/mL51 Years - 75 Years >900 pg/mL76 Years - 99 Years >1800 pg/mLRule Out:All patients <300 pg/mL Performed By: #### 4 7395 #### LAB [address] [place], [place] [address] Moody Martinez M.D. [id number] POC GLUCOSE [facility] 025 Glucose [Mass/Vol] 287 mg/dL [address] Comment on above: Performed By: #### 4 6932 ####[facility] [address] [address] Moody Martinez M.D. [id number] Glucose [Mass/Vol] 137 mg/dL [address] Comment on above: Performed By: #### 4 6932 ####[facility] [address] [address] Moody Martinez M.D. [id number] Glucose [Mass/Vol] 252 mg/dL [address] Comment on above: Performed By: #### 4 6932 ####[facility] [address] [address] Moody Martinez M.D. [id number] Glucose [Mass/Vol] 332 mg/dL [address] Comment on above: Performed By: #### 4 6932 #### LAB [address] [address] Moody Martinez M.D. [id number] Glucose [Mass/Vol] 286 mg/dL [address] Comment on above: Performed By: #### 4 6932 #### LAB [address] [address] Moody Martinez M.D. [id number] Glucose [Mass/Vol] 168 mg/dL [address] Comment on above: Performed By: #### L [id number] #### [facility] [address] [id number] Moody Martinez M.D. [id number] Glucose [Mass/Vol] 186 mg/dL High 65-99 [facility] [place] [facility] Comment on above: Performed By: #### 4 6932 #### LAB [address] [id number] Moody Martinez M.D. [id number] POTASSIUM LEVELon 03-02-2025 Potassium [Moles/Vol] 3.9 mmol/L Normal 3.5-5.1 [facility] Comment on above: Performed By: #### 4 6351 #### LAB [address] [address] Moody Martinez M.D. [id number] TROPONIN X 2 (NOW AND REPEAT IN 2 HOURS)on 03-02-2025 TROPONIN T DELTA CHANGE INTERPRETATION Delta troponin requires at least 2 hours between collections. [facility] Comment on above: Performed By: #### 4 6608 #### LAB [address] [address] Moody Martinez M.D. [id number] TROPONIN T NG/L 1447 ng/L Off scale high <=22 [facility] Comment on above: Performed By: #### 4 6608 #### LAB [address] [address] Moody Martinez M.D. [id number] BASELINE TROPONIN T NG/L 1309 ng/L Off scale high <=22 [facility] Comment on above: Performed By: #### 4 6608 #### LAB [address] [address] Moody Martinez M.D. [id number] TROPONIN T INTERPRETATION Possible acute cardiac injury. [facility] Comment on above: Performed By: #### 4 6608 #### LAB [address] [address] Moody Martinez M.D. [id number] XR CHEST PA/APon 03-02-2025 XR CHEST PA/AP [...] (HCC) J18.9 Pneumonia E11.10 DKA (diabetic ketoacidosis) ([facility]) COMPARISON: 02/28/2025. TECHNIQUE: Single portable semierect view. FINDINGS: Cardiac silhouette and mediastinal contours are stable. No pneumothorax or large pleural effusion. There is development of kxhvebrk-oq-ymfhfb bilateral mixed interstitial and alveolar opacities in both lungs consistent with pulmonary edema; although, underlying pneumonia/aspiration is not excluded. IMPRESSION: Development of hgehvhor-ap-ebnuko mixed interstitial and alveolar opacities in both lungs consistent with pulmonary edema. Underlying pneumonia/aspiration not excluded. No pneumothorax or large pleural effusion. JAR/trw Workstation ID: [id number] Dictated by: KAHLIL VARGHESE on WedMarch 02, 2025 2:36:56 PM EDT Transcribed by: AFUA RALPH on WedMarch 02, 2025 3:15:52 PM EDT Finalized by: KAHLIL VARGHESE on WedMarch 02, 2025 3:23:59 PM EDT Normal [facility] Comment on above: Order Comment: Injur y/Trauma or Illness?:Illness/OtherHow long have you had these symptoms (acute/chronic)?:AcuteReason for exam?:SOBHistory of cancer?:.Surgeries, chemotherapy, or radiation?:cardiac catheterizationType of Exam?:InitialAdditional signs and symptoms?:. BASIC METABOLIC PANELon 05-0 Anion gap [Moles/Vol] 15 mmol/L Normal 10-20 [facility] Comment on above: Order Comment: [facility] has implemented the eGFR calculation approach that does not have a coefficient for race that conforms to the NKF-ASN Task Force Recommendations. Performed By: #### 4 6124 ####[facility] [address] [place], [place] [address] Moody Martinez M.D. [id number] Calcium [Mass/Vol] 8.7 mg/dL Normal 8.4-10.2 [facility] [place] [facility] Comment on above: Order Comment: [facility] has implemented the eGFR calculation approach that does not have a coefficient for race that conforms to the NKF-ASN Task Force Recommendations. Performed By: #### 4 6124 #### LAB [address] [place], [place] [address] Moody Martinez M.D. [id number] Chloride [Moles/Vol] 104 mmol/L Normal 98-108 [facility] Comment on above: Order Comment: [facility] has implemented the eGFR calculation approach that does not have a coefficient for race that conforms to the NKF-ASN Task Force Recommendations. Performed By: #### 4 6124 #### LAB [address] [place] [address] Moody Martinez M.D. [id number] Creatinine [Mass/Vol] 2.49 mg/dL High 0.80-1.30 [facility] Comment on above: Order Comment: [facility] has implemented the eGFR calculation approach that does not have a coefficient for race that conforms to the NKF-ASN Task Force Recommendations. Performed By: #### 4 6124 #### LAB [address] [place] [id number] Moody Martinez M.D. [id number] EGFR 25 mL/min/1.73 m2 Low >=60 [facility] Comment on above: Order Comment: [facility] has implemented the eGFR calculation approach that does not have a coefficient for race that conforms to the NKF-ASN Task Force Recommendations. Result Comment: Albin mated GFR was calculated using the 2020 CKD-EPI creatinine equation. Performed By: #### 4 6124 #### LAB [address] [place] [id number] Moody Martinez M.D. [id number] Glucose [Mass/Vol] 86 mg/dL Normal 65-99 [facility] [place] [facility] Comment on above: Order Comment: [facility] has implemented the eGFR calculation approach that does not have a coefficient for race that conforms to the NKF-ASN Task Force Recommendations. Performed By: #### 4 6124 #### LAB [address] [place] [address] Moody Martinez M.D. [id number] HCO3 (Bld) [Moles/Vol] 26 mmol/L Normal 21-32 [facility] Comment on above: Order Comment: [facility] has implemented the eGFR calculation approach that does not have a coefficient for race that conforms to the NKF-ASN Task Force Recommendations. Performed By: #### 4 6124 #### LAB [address] [place] [address] Moody Martinez M.D. [id number] Potassium [Moles/Vol] 4.2 mmol/L Normal 3.5-5.1 [facility] Comment on above: Order Comment: [facility] has implemented the eGFR calculation approach that does not have a coefficient for race that conforms to the NKF-ASN Task Force Recommendations. Performed By: #### 4 6124 #### LAB [address] [place] [address] Moody Martinez M.D. [id number] Sodium [Moles/Vol] 141 mmol/L Normal 135-145 [facility] [place] [facility] Comment on above: Order Comment: [facility] has implemented the eGFR calculation approach that does not have a coefficient for race that conforms to the NKF-ASN Task Force Recommendations. Performed By: #### 4 6124 #### LAB [address] [place] [address] Moody Martinez M.D. [id number] Urea nitrogen [Mass/Vol] 47 mg/dL High 8-25 [facility] Comment on above: Order Comment: [facility] has implemented the eGFR calculation approach that does not have a coefficient for race that conforms to the NKF-ASN Task Force Recommendations. Performed By: #### 4 6124 #### LAB [address] [place] [address] Moody Martinez M.D. [id number] Urea nitrogen/Creatinine [Mass ratio] 18.9 mg/mg Normal 10.0-20.0 [facility] Comment on above: Order Comment: [facility] has implemented the eGFR calculation approach that does not have a coefficient for race that conforms to the NKF-ASN Task Force Recommendations. Performed By: #### 4 6124 #### LAB [address] [place] [address] Moody Martinez M.D. [id number] CBCon 03-01-2025 AUTO NRBC 0.0 % Normal [facility] Comment on above: Performed By: #### 4 5218 ####[facility] [address] [place] [address] Moody Martinez M.D. [id number] AUTO NRBC ABS COUNT 0.00 K/mcL Normal 0.00-0.00 [facility] Comment on above: Performed By: #### 4 5218 #### LAB [address] [place] [address] Moody Martinez M.D. [id number] Erythrocyte distribution width (RBC) [Ratio] 13.7 % Normal 11.6-14.8 [facility] Comment on above: Performed By: #### 4 5218 #### LAB [address] [place] [address] Moody Martinez M.D. [id number] Hematocrit (Bld) [Volume fraction] 29.8 % Low 41.0-53.0 [facility] Comment on above: Performed By: #### 4 5218 #### LAB [address] [place] [address] Moody Martinez M.D. [id number] Hemoglobin (Bld) [Mass/Vol] 9.9 g/dL Low 13.5-17.5 [facility] Comment on above: Performed By: #### 4 5218 #### LAB [address] [place] [address] Moody Martinez M.D. [id number] MCH (RBC) [Entitic mass] 31.0 pg Normal 26.0-34.0 [facility] Comment on above: Performed By: #### 4 5218 #### LAB [address] [place] [address] Moody Martinez M.D. [id number] MCV (RBC) [Entitic vol] 93.4 fL Normal 80.0-100.0 [facility] Comment on above: Performed By: #### 4 5218 #### LAB [address] [place] [address] Moody Martinez M.D. [id number] MEAN CORPUSCULAR HEMOGLOBIN CONC 33.2 g/dL Normal 31.0-37.0 [facility] Comment on above: Performed By: #### 4 5218 #### LAB [address] [place] [address] Moody Martinez M.D. [id number] Platelet mean volume (Bld) [Entitic vol] 10.9 fL Normal 9.4-12.4 [facility] Comment on above: Performed By: #### 4 5218 ####[facility] [address] [place] [address] Moody Martinez M.D. [id number] Platelets (Bld) [#/Vol] 186 10*3/uL Normal 150-400 [facility] Comment on above: Performed By: #### 4 5218 #### LAB [address] [place] [address] Moody Martinez M.D. [id number] RBC (Bld) [#/Vol] 3.19 10*6/uL Low 4.50-5.90 [facility] Comment on above: Performed By: #### 4 5218 #### LAB [address] [place] [address] Moody Martinez M.D. [id number] WBC (Bld) [#/Vol] 15.37 10*3/uL High 4.50-11.00 [facility] Comment on above: Performed By: #### 4 5218 #### LAB [address] [place] [address] Moody Martinez M.D. [id number] MAGNESIUM LEVELon 03-01-2025 Magnesium [Mass/Vol] 2.1 mg/dL Normal 1.6-2.4 [facility] Comment on above: Performed By: #### 4 6109 ####[facility] [address] [place] [address] Moody Martinez M.D. [id number] PHOSPHORUSon 03-01-2025 Phosphate [Mass/Vol] 4.3 mg/dL High 2.3-3.7 [facility] Comment on above: Performed By: #### 4 6299 ####[facility] [address] [place] [address] Moody Martinez M.D. [id number] POC GLUCOSE - [facility] 025 Glucose [Mass/Vol] 249 mg/dL High [address] [place] [address] Comment on above: Performed By: #### 4 6932 ####[facility] [address] [place] [address] Moody Martinez M.D. [id number] Glucose [Mass/Vol] 79 mg/dL Normal [address] [place] [address] Comment on above: Performed By: #### 4 6932 ####[facility] [address] [place] [address] Moody Martinez M.D. [id number] Glucose [Mass/Vol] 237 mg/dL High [address] [place] [address] Comment on above: Performed By: #### 4 6932 ####[facility] [address] [place] [address] Moody Martinez M.D. [id number] Glucose [Mass/Vol] 85 mg/dL Normal [address] [place] [address] Comment on above: Performed By: #### 4 6972 ####[facility] [address] [place] [address] Moody Martinez M.D. [id number] Glucose [Mass/Vol] 167 mg/dL High [address] [place] [address] Comment on above: Performed By: #### 4 6984 ####[facility] [address] [place] [address] Moody Martinez M.D. [id number] BASIC METABOLIC PANELon 02-01 Anion gap [Moles/Vol] 16 mmol/L Normal 10-20 [facility] Comment on above: Order Comment: [facility] has implemented the eGFR calculation approach that does not have a coefficient for race that conforms to the NKF-ASN Task Force Recommendations. Performed By: #### 4 4014 #### LAB [address] [place], [place] [address] Moody Martinez M.D. [id number] Calcium [Mass/Vol] 9.5 mg/dL Normal 8.4-10.2 [facility] [place] [facility] Comment on above: Order Comment: [facility] has implemented the eGFR calculation approach that does not have a coefficient for race that conforms to the NKF-ASN Task Force Recommendations. Performed By: #### 4 4014 #### LAB [address] [place], [place] [address] Moody Martinez M.D. [id number] Chloride [Moles/Vol] 103 mmol/L Normal 98-108 [facility] Comment on above: Order Comment: [facility] has implemented the eGFR calculation approach that does not have a coefficient for race that conforms to the NKF-ASN Task Force Recommendations. Performed By: #### 4 4014 #### LAB [address] [place] [address] Moody Martinez M.D. [id number] Creatinine [Mass/Vol] 2.61 mg/dL High 0.80-1.30 [facility] Comment on above: Order Comment: [facility] has implemented the eGFR calculation approach that does not have a coefficient for race that conforms to the NKF-ASN Task Force Recommendations. Performed By: #### 4 4014 #### LAB [address] [place], [place] [address] Moody Martinez M.D. [id number] EGFR 24 mL/min/1.73 m2 Low >=60 [facility] Comment on above: Order Comment: [facility] has implemented the eGFR calculation approach that does not have a coefficient for race that conforms to the NKF-ASN Task Force Recommendations. Result Comment: Albin mated GFR was calculated using the 2020 CKD-EPI creatinine equation. Performed By: #### 4 4014 #### [facility] [address] [place] [address] Moody Martinez M.D. [id number] Glucose [Mass/Vol] 138 mg/dL High 65-99 [facility] [place] [facility] Comment on above: Order Comment: [facility] has implemented the eGFR calculation approach that does not have a coefficient for race that conforms to the NKF-ASN Task Force Recommendations. Performed By: #### 4 4014 #### [facility] [address] [place] [address] Moody Martinez M.D. [id number] HCO3 (Bld) [Moles/Vol] 23 mmol/L Normal 21-32 [facility] Comment on above: Order Comment: [facility] has implemented the eGFR calculation approach that does not have a coefficient for race that conforms to the NKF-ASN Task Force Recommendations. Performed By: #### 4 4014 #### [facility] [address] [place] [address] Moody Martinez M.D. [id number] Potassium [Moles/Vol] 4.0 mmol/L Normal 3.5-5.1 [facility] Comment on above: Order Comment: [facility] has implemented the eGFR calculation approach that does not have a coefficient for race that conforms to the NKF-ASN Task Force Recommendations. Performed By: #### 4 4014 #### [facility] [address] [place] [address] Moody Martinez M.D. [id number] Sodium [Moles/Vol] 138 mmol/L Normal 135-145 [facility] [place] [facility] Comment on above: Order Comment: [facility] has implemented the eGFR calculation approach that does not have a coefficient for race that conforms to the NKF-ASN Task Force Recommendations. Performed By: #### 4 4014 #### [facility] [address] [place] [address] Moody Martinez M.D. [id number] Urea nitrogen [Mass/Vol] 50 mg/dL High 8-25 [facility] Comment on above: Order Comment: [facility] has implemented the eGFR calculation approach that does not have a coefficient for race that conforms to the NKF-ASN Task Force Recommendations. Performed By: #### 4 4014 #### LAB [address] [place], [place] [address] Moody Martinez M.D. [id number] Urea nitrogen/Creatinine [Mass ratio] 19.2 mg/mg Normal 10.0-20.0 [facility] Comment on above: Order Comment: [facility] has implemented the eGFR calculation approach that does not have a coefficient for race that conforms to the NKF-ASN Task Force Recommendations. Performed By: #### 4 4014 #### LAB [address] [place] [id number] Moody Martinez M.D. [id number] Anion gap [Moles/Vol] 22 mmol/L [facility] 10 [facility] Comment on above: Order Comment: Injur y/Trauma or Illness?:Illness/Other How long have you had these symptoms (acute/chronic)?:Acute Reason for exam?:cross clamp of aorta for CPB Type of Exam?:Initial Additional signs and symptoms?:cp Performed By: #### 4 6124 #### LAB [address] [id number] Moody Martinez M.D. [id number] Calcium [Mass/Vol] 9.6 mg/dL Normal 8.4-10.2 [facility] [place] [facility] Comment on above: Order Comment: Injur y/Trauma or Illness?:Illness/Other How long have you had these symptoms (acute/chronic)?:Acute Reason for exam?:cross clamp of aorta for CPB Type of Exam?:Initial Additional signs and symptoms?:cp Performed By: #### 4 6157 #### LAB [address] [place] [id number] Moody Martinez M.D. [id number] Chloride [Moles/Vol] 100 mmol/L Normal 98-108 [facility] Comment on above: Order Comment: Injur y/Trauma or Illness?:Illness/Other How long have you had these symptoms (acute/chronic)?:Acute Reason for exam?:cross clamp of aorta for CPB Type of Exam?:Initial Additional signs and symptoms?:cp Performed By: #### 4 6150 #### LAB [address] [place] [address] Moody Martinez M.D. [id number] Creatinine [Mass/Vol] 2.69 mg/dL High 0.80-1.30 [facility] Comment on above: Order Comment: Injur y/Trauma or Illness?:Illness/Other How long have you had these symptoms (acute/chronic)?:Acute Reason for exam?:cross clamp of aorta for CPB Type of Exam?:Initial Additional signs and symptoms?:cp Performed By: #### 4 6111 #### LAB [address] [place] [address] Moody Martinez M.D. [id number] EGFR 23 mL/min/1.73 m2 Low >=60 [facility] Comment on above: Order Comment: Injur y/Trauma or Illness?:Illness/Other How long have you had these symptoms (acute/chronic)?:Acute Reason for exam?:cross clamp of aorta for CPB Type of Exam?:Initial Additional signs and symptoms?:cp Result Comment: Albin mated GFR was calculated using the 2020 CKD-EPI creatinine equation. Performed By: #### 4 6137 #### LAB [address] [place] [address] Moody Martinez M.D. [id number] Glucose [Mass/Vol] 426 mg/dL Off scale high 65-99 [facility] Comment on above: Order Comment: Injur y/Trauma or Illness?:Illness/Other How long have you had these symptoms (acute/chronic)?:Acute Reason for exam?:cross clamp of aorta for CPB Type of Exam?:Initial Additional signs and symptoms?:cp Performed By: #### 4 6159 #### LAB [address] [place] [address] Moody Martinez M.D. [id number] HCO3 (Bld) [Moles/Vol] 19 mmol/L Low 21-32 [facility] Comment on above: Order Comment: Injur y/Trauma or Illness?:Illness/Other How long have you had these symptoms (acute/chronic)?:Acute Reason for exam?:cross clamp of aorta for CPB Type of Exam?:Initial Additional signs and symptoms?:cp Performed By: #### 4 6124 #### LAB [address] [place] [address] Moody Martinez M.D. [id number] Potassium [Moles/Vol] 4.0 mmol/L Normal 3.5-5.1 [facility] Comment on above: Order Comment: Injur y/Trauma or Illness?:Illness/Other How long have you had these symptoms (acute/chronic)?:Acute Reason for exam?:cross clamp of aorta for CPB Type of Exam?:Initial Additional signs and symptoms?:cp Performed By: #### 4 6124 #### LAB [address] [place] [address] Moody Martinez M.D. [id number] Sodium [Moles/Vol] 137 mmol/L Normal 135-145 [facility] [place] [facility] Comment on above: Order Comment: Injur y/Trauma or Illness?:Illness/Other How long have you had these symptoms (acute/chronic)?:Acute Reason for exam?:cross clamp of aorta for CPB Type of Exam?:Initial Additional signs and symptoms?:cp Performed By: #### 4 6124 #### LAB [address] [place] [address] Moody Martinez M.D. [id number] Urea nitrogen [Mass/Vol] 51 mg/dL High 8-25 [facility] Comment on above: Order Comment: Injur y/Trauma or Illness?:Illness/Other How long have you had these symptoms (acute/chronic)?:Acute Reason for exam?:cross clamp of aorta for CPB Type of Exam?:Initial Additional signs and symptoms?:cp Performed By: #### 4 6124 #### LAB [address] [place] [address] Moody Martinez M.D. [id number] Urea nitrogen/Creatinine [Mass ratio] 19.0 mg/mg Normal 10.0-20.0 [facility] Comment on above: Order Comment: Injur y/Trauma or Illness?:Illness/Other How long have you had these symptoms (acute/chronic)?:Acute Reason for exam?:cross clamp of aorta for CPB Type of Exam?:Initial Additional signs and symptoms?:cp Performed By: #### 4 6124 #### LAB [address] [place] [address] Moody Martinez M.D. [id number] Anion gap [Moles/Vol] 27 mmol/L High 10-20 [facility] Comment on above: Order Comment: [facility] has implemented the eGFR calculation approach that does not have a coefficient for race that conforms to the NKF-ASN Task Force Recommendations. Performed By: #### 4 6124 #### LAB [address] [place] [address] Moody Martinez M.D. [id number] Calcium [Mass/Vol] 9.6 mg/dL Normal 8.4-10.2 [facility] [place] [facility] Comment on above: Order Comment: [facility] has implemented the eGFR calculation approach that does not have a coefficient for race that conforms to the NKF-ASN Task Force Recommendations. Performed By: #### 4 6124 #### LAB [address] [place] [address] Moody Martinez M.D. [id number] Chloride [Moles/Vol] 97 mmol/L Low 98-108 [facility] Comment on above: Order Comment: [facility] has implemented the eGFR calculation approach that does not have a coefficient for race that conforms to the NKF-ASN Task Force Recommendations. Performed By: #### 4 6124 #### LAB [address] [place] [address] Moody Martinez M.D. [id number] Creatinine [Mass/Vol] 2.72 mg/dL High 0.80-1.30 [facility] Comment on above: Order Comment: [facility] has implemented the eGFR calculation approach that does not have a coefficient for race that conforms to the NKF-ASN Task Force Recommendations. Performed By: #### 4 6160 #### LAB [address] [place] [address] Moody Martinez M.D. [id number] EGFR 23 mL/min/1.73 m2 Low >=60 [facility] Comment on above: Order Comment: [facility] has implemented the eGFR calculation approach that does not have a coefficient for race that conforms to the NKF-ASN Task Force Recommendations. Result Comment: Albin mated GFR was calculated using the 2020 CKD-EPI creatinine equation. Performed By: #### 4 6124 #### LAB [address] [place] [address] Moody Martinez M.D. [id number] Glucose [Mass/Vol] 529 mg/dL Off scale high 65-99 [facility] Comment on above: Order Comment: [facility] has implemented the eGFR calculation approach that does not have a coefficient for race that conforms to the NKF-ASN Task Force Recommendations. Performed By: #### 4 6124 #### LAB [address] [place] [address] Moody Martinez M.D. [id number] HCO3 (Bld) [Moles/Vol] 17 mmol/L Low 21-32 [facility] Comment on above: Order Comment: [facility] has implemented the eGFR calculation approach that does not have a coefficient for race that conforms to the NKF-ASN Task Force Recommendations. Performed By: #### 4 6124 #### LAB [address] [place] [address] Moody Martinez M.D. [id number] Potassium [Moles/Vol] 4.5 mmol/L Normal 3.5-5.1 [facility] Comment on above: Order Comment: [facility] has implemented the eGFR calculation approach that does not have a coefficient for race that conforms to the NKF-ASN Task Force Recommendations. Performed By: #### 4 6124 #### LAB [address] [place] [address] Moody Martinez M.D. [id number] Sodium [Moles/Vol] 136 mmol/L Normal 135-145 [facility] [place] [facility] Comment on above: Order Comment: [facility] has implemented the eGFR calculation approach that does not have a coefficient for race that conforms to the NKF-ASN Task Force Recommendations. Performed By: #### 4 6124 #### LAB [address] [place] [id number] Moody Martinez M.D. [id number] Urea nitrogen [Mass/Vol] 52 mg/dL High 8-25 [facility] Comment on above: Order Comment: [facility] has implemented the eGFR calculation approach that does not have a coefficient for race that conforms to the NKF-ASN Task Force Recommendations. Performed By: #### 4 6124 #### LAB [address] [place] [address] Moody Martinez M.D. [id number] Urea nitrogen/Creatinine [Mass ratio] 19.1 mg/mg Normal 10.0-20.0 [facility] Comment on above: Order Comment: [facility] has implemented the eGFR calculation approach that does not have a coefficient for race that conforms to the NKF-ASN Task Force Recommendations. Performed By: #### 4 6124 #### LAB [address] [place] [address] Moody Martinez M.D. [id number] Anion gap [Moles/Vol] 28 mmol/L High 10-20 [facility] Comment on above: Order Comment: Injur y/Trauma or Illness?:Illness/Other How long have you had these symptoms (acute/chronic)?:Acute Reason for exam?:sob History of cancer?:. Surgeries, chemotherapy, or radiation?:cardiac catheterization Type of Exam?:Initial Additional signs and symptoms?:n Performed By: #### 4 6124 #### LAB [address] [place] [address] Moody Martinez M.D. [id number] Calcium [Mass/Vol] 9.6 mg/dL Normal 8.4-10.2 [facility] [place] [facility] Comment on above: Order Comment: Injur y/Trauma or Illness?:Illness/Other How long have you had these symptoms (acute/chronic)?:Acute Reason for exam?:sob History of cancer?:. Surgeries, chemotherapy, or radiation?:cardiac catheterization Type of Exam?:Initial Additional signs and symptoms?:n Performed By: #### 4 6124 #### LAB [address] [place] [address] Moody Martinez M.D. [id number] Chloride [Moles/Vol] 97 mmol/L Low 98-108 [facility] Comment on above: Order Comment: Injur y/Trauma or Illness?:Illness/Other How long have you had these symptoms (acute/chronic)?:Acute Reason for exam?:sob History of cancer?:. Surgeries, chemotherapy, or radiation?:cardiac catheterization Type of Exam?:Initial Additional signs and symptoms?:n Performed By: #### 4 6124 #### LAB [address] [place] [address] Moody Martinez M.D. [id number] Creatinine [Mass/Vol] 2.66 mg/dL High 0.80-1.30 [facility] Comment on above: Order Comment: Injur y/Trauma or Illness?:Illness/Other How long have you had these symptoms (acute/chronic)?:Acute Reason for exam?:sob History of cancer?:. Surgeries, chemotherapy, or radiation?:cardiac catheterization Type of Exam?:Initial Additional signs and symptoms?:n Performed By: #### 4 6124 #### LAB [address] [place] [address] Moody Martinez M.D. [id number] EGFR 23 mL/min/1.73 m2 Low >=60 [facility] Comment on above: Order Comment: Injur y/Trauma or Illness?:Illness/Other How long have you had these symptoms (acute/chronic)?:Acute Reason for exam?:sob History of cancer?:. Surgeries, chemotherapy, or radiation?:cardiac catheterization Type of Exam?:Initial Additional signs and symptoms?:n Result Comment: Albin mated GFR was calculated using the 2020 CKD-EPI creatinine equation. Performed By: #### 4 61 #### LAB [address] [place] [address] Moody Martinez M.D. [id number] Glucose [Mass/Vol] 514 mg/dL Off scale high 65-99 [facility] Comment on above: Order Comment: Injur y/Trauma or Illness?:Illness/Other How long have you had these symptoms (acute/chronic)?:Acute Reason for exam?:sob History of cancer?:. Surgeries, chemotherapy, or radiation?:cardiac catheterization Type of Exam?:Initial Additional signs and symptoms?:n Performed By: #### 4 6199 #### LAB [address] [address] Moody Martinez M.D. [id number] HCO3 (Bld) [Moles/Vol] 18 mmol/L Low 21-32 [facility] Comment on above: Order Comment: Injur y/Trauma or Illness?:Illness/Other How long have you had these symptoms (acute/chronic)?:Acute Reason for exam?:sob History of cancer?:. Surgeries, chemotherapy, or radiation?:cardiac catheterization Type of Exam?:Initial Additional signs and symptoms?:n Performed By: #### 4 6147 #### LAB [address] [address] Moody Martinez M.D. [id number] Potassium [Moles/Vol] 5.9 mmol/L High 3.5-5.1 [facility] Comment on above: Order Comment: Injur y/Trauma or Illness?:Illness/Other How long have you had these symptoms (acute/chronic)?:Acute Reason for exam?:sob History of cancer?:. Surgeries, chemotherapy, or radiation?:cardiac catheterization Type of Exam?:Initial Additional signs and symptoms?:n Result Comment: Slig htly Hemolyzed Performed By: #### 4 5928 #### LAB [address] [address] Mooyd Martinez M.D. [id number] Sodium [Moles/Vol] 137 mmol/L Normal 135-145 [facility] [place] [facility] Comment on above: Order Comment: Injur y/Trauma or Illness?:Illness/Other How long have you had these symptoms (acute/chronic)?:Acute Reason for exam?:sob History of cancer?:. Surgeries, chemotherapy, or radiation?:cardiac catheterization Type of Exam?:Initial Additional signs and symptoms?:n Performed By: #### 4 5241 #### LAB [address] [address] Moody Martinez M.D. [id number] Urea nitrogen [Mass/Vol] 50 mg/dL High 8-25 [facility] Comment on above: Order Comment: Injur y/Trauma or Illness?:Illness/Other How long have you had these symptoms (acute/chronic)?:Acute Reason for exam?:sob History of cancer?:. Surgeries, chemotherapy, or radiation?:cardiac catheterization Type of Exam?:Initial Additional signs and symptoms?:n Performed By: #### 4 6124 ####[facility] LAB [address] [address] Moody Martinez M.D. [id number] Urea nitrogen/Creatinine [Mass ratio] 18.8 mg/mg Normal 10.0-20.0 [facility] Comment on above: Order Comment: Injur y/Trauma or Illness?:Illness/Other How long have you had these symptoms (acute/chronic)?:Acute Reason for exam?:sob History of cancer?:. Surgeries, chemotherapy, or radiation?:cardiac catheterization Type of Exam?:Initial Additional signs and symptoms?:n Performed By: #### 4 6124 ####[facility] [address] [address] Moody Martinez M.D. [id number] BETA-HYDROXYBUTYRATEon 02-28 BETA-HYDROXYBUTYRATE < Normal 0.0-0.3 [facility] Comment on above: Performed By: #### 4 5106 ####[facility] [address] [address] Moody Martinez M.D. [id number] BETA-HYDROXYBUTYRATE 1.1 mmol/L High 0.0-0.3 [facility] Comment on above: Performed By: #### 4 5119 ####[facility] [address] [address] Moody Martinez M.D. [id number] BETA-HYDROXYBUTYRATE 3.3 mmol/L High 0.0-0.3 [facility] Comment on above: Performed By: #### 4 4014 #### [facility] [address] [address] Moody Martinez M.D. [id number] BETA-HYDROXYBUTYRATE 3.3 mmol/L High 0.0-0.3 [facility] Comment on above: Performed By: #### 4 4014 #### [facility] [address] [address] Moody Martinez M.D. [id number] BLOOD CULTURE AEROBIC/ANAERO BICon 02-28-2025 BLOOD CULTURE AEROBIC/ANAEROBIC BLOOD CULTURE No Growth after 5 days [facility] Comment on above: Performed By: #### 4 4014 #### [facility] [address] [address] Moody Martinez M.D. [id number] Performed By: #### 4 4014 ####[facility] [address] [address] Moody Martinez M.D. [id number] CBC WITH AUTO DIFFERENTIALon 02-28-2025 AUTO NRBC 0.0 % [facility] Comment on above: Performed By: #### L [id number] ####[facility] [address] [address] Moody Martinez M.D. [id number] AUTO NRBC ABS COUNT 0.00 K/mcL Normal 0.00-0.00 [facility] Comment on above: Performed By: #### L [id number] ####[facility] [address] [address] Moody Martinez M.D. [id number] BASOPHILS ABSOLUTE COUNT 0.05 K/mcL Normal 0.00-0.30 [facility] Comment on above: Performed By: #### L [id number] ####[facility] [address] [address] Moody Martinez M.D. [id number] Basophils/100 WBC (Bld) 0.3 % [facility] Comment on above: Performed By: #### L [id number] ####[facility] [address] [address] Moody Martinez M.D. [id number] Eosinophils (Bld) [#/Vol] 0.00 10*3/uL Normal 0.00-0.5 0 [facility] Comment on above: Performed By: #### L [id number] #### LAB [address] [address] Moody Martinez M.D. [id number] Eosinophils/100 WBC (Bld) 0.0 % Normal [facility] Comment on above: Performed By: #### L [id number] #### LAB [address] [address] Mooyd Martinez M.D. [id number] Erythrocyte distribution width (RBC) [Ratio] 13.5 % Normal 11.6-14.8 [facility] Comment on above: Performed By: #### L [id number] #### LAB [address] [address] Moody Martinez M.D. [id number] Hematocrit (Bld) [Volume fraction] 40.2 % Low 41.0-53.0 [facility] Comment on above: Performed By: #### L [id number] #### LAB [address] [address] Moody Martinez M.D. [id number] Hemoglobin (Bld) [Mass/Vol] 13.1 g/dL Low 13.5-17.5 [facility] Comment on above: Performed By: #### L [id number] #### LAB [address] [place] [address] Moody Martinez M.D. [id number] IG ABSOLUTE 0.16 K/mcL Normal 0.00-0.30 [facility] Comment on above: Performed By: #### L [id number] #### LAB [address] [place] [address] Moody Martinez M.D. [id number] IG PERCENT 0.80 % Normal [facility] Comment on above: Result Comment: The IG parameter is the percentage of metamyelocytes, myelocytes and promyelocytes. An immature granulocyte count (IG) of 1% or more suggests the possibility of infection, an IG count of 3% is very likely related to an infection. Performed By: #### L [id number] #### LAB [address] [address] Moody Martinez M.D. [id number] Lymphocytes (Bld) [#/Vol] 1.13 10*3/uL Normal 0.90-4.0 0 [facility] Comment on above: Performed By: #### L [id number] #### LAB [address] [address] Moody Martinez M.D. [id number] Lymphocytes/100 WBC (Bld) 6.0 % Normal [facility] Comment on above: Performed By: #### L [id number] #### LAB [address] [address] Moody Martinez M.D. [id number] MCH (RBC) [Entitic mass] 30.8 pg Normal 26.0-34.0 [facility] Comment on above: Performed By: #### L [id number] #### LAB [address] [address] Moody Martinez M.D. [id number] MCV (RBC) [Entitic vol] 94.6 fL Normal 80.0-100.0 [facility] Comment on above: Performed By: #### L [id number] #### LAB [address] [address] Moody Martinez M.D. [id number] MEAN CORPUSCULAR HEMOGLOBIN CONC 32.6 g/dL Normal 31.0-37.0 [facility] Comment on above: Performed By: #### L [id number] #### LAB [address] [address] Moody Martinez M.D. [id number] Monocytes (Bld) [#/Vol] 0.91 10*3/uL High 0.30-0.90 [facility] Comment on above: Performed By: #### L [id number] #### LAB [address] [place] [address] Moody Martinez M.D. [id number] Monocytes/100 WBC (Bld) 4.8 % Normal [facility] Comment on above: Performed By: #### L [id number] #### LAB [address] [address] Moody Martinez M.D. [id number] NEUTROPHILS ABSOLUTE COUNT 16.63 K/mcL High 1.70-7.00 [facility] Comment on above: Performed By: #### L [id number] #### LAB [address] [address] Moody Martinez M.D. [id number] Neutrophils/100 WBC (Bld) 88.1 % Normal [facility] Comment on above: Performed By: #### L [id number] #### LAB [address] [address] Moody Martinez M.D. [id number] Platelet mean volume (Bld) [Entitic vol] 11.1 fL Normal 9.4-12.4 [facility] Comment on above: Performed By: #### L [id number] #### LAB [address] [address] Moody Martinez M.D. [id number] Platelets (Bld) [#/Vol] 258 10*3/uL Normal 150-400 [facility] Comment on above: Performed By: #### L [id number] #### LAB [address] [address] Moody Martinez M.D. [id number] RBC (Bld) [#/Vol] 4.25 10*6/uL Low 4.50-5.90 [facility] Comment on above: Performed By: #### L [id number] #### LAB [address] [address] Moody Martinez M.D. [id number] WBC (Bld) [#/Vol] 18.88 10*3/uL High 4.50-11.00 [facility] Comment on above: Performed By: #### L [id number] #### LAB [address] [address] Moody Martinez M.D. [id number] COVID-19/INFLUENZA A,B MOLEC ULARon 02-28-2025 SARS-CoV-2 (COVID-19) Ab IA Ql SARS-COV-2 (FERDINAND) Not Detected INFLUENZA A (FERDINAND) Not Detected INFLUENZA B (FERDINAND) Not Detected Normal Not Detected [facility] Comment on above: Performed By: #### L [id number] #### LAB [address] [place], [place] [address] Moody Martinez M.D. [id number] CRP, INFLAMMATIONon 02-29-20 CRP (INFLAMMATION) < Normal 0.0-10.0 [facility] [place] [facility] Comment on above: Performed By: #### 4 5334 #### LAB [address] [place], [place] [address] Moody Martinez M.D. [id number] D-DIMER, QUANTITATIVEon 02-01 D-DIMER QUANTITATIVE 1.67 mcg/mL FEU High 0.27-0.49 [facility] Comment on above: Order Comment: A [...] By: #### 4 5434 #### LAB [address], [place] [address] Moody Martinez M.D. [id number] ED Procedureon 02-28-2025 ED Procedure ECG 12 Lead Date/Time: 02/28/2025 4:33 AM Performed by: Conchita Yañez MD Authorized by: Conchita Yañez MD Interpreted by ED attending physician Rhythm: sinus rhythm and sinus tachycardia BPM: 103 Clinical impression: sinus tachycardia Comments: TN interval 144 QRS duration 90 QTc 437 AUTHENTICATED BY CONCHITA YAÑEZ, ON 02/28/2025 04:33:26 Normal [facility] ED Procedure EKG 12-lead Date/Time: 02/28/2025 3:26 AM Performed by: Conchita Yañez MD Authorized by: Conchita Yañez MD Interpreted by ED attending physician Rhythm: sinus rhythm BPM: 88 Comments: TN interval 162 QRS duration 102 QTc 491 T wave inversion in lead III and aVF as well as V5 V6 AUTHENTICATED BY CONCHITA YAÑEZ, ON 02/28/2025 03:26:34 Normal [facility] ED Prov Noteon 02-28-2025 ED Prov Note [facility] EMERGENCY DEPARTMENT ATTENDING NOTE: NAME: Enoc Armando CSN: [id number] 79 y.o. 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 pen needle, diabetic (BD Ultra-Fine Jloynn Pen Needle) 32 gauge x 5/32 Ndle [...] -- 02/28 (more content not included)... Normal [facility] HEMOGLOBIN A1Con 02-28-2025 Glucose [Mass/Vol] 171 mg/dL High 74-114 [facility] [place] [facility] Comment on above: Performed By: #### 4 8202 ####[facility] LAB [address] [place], [place] [address] Moody Martinez M.D. [id number] HbA1c (Bld) [Mass fraction] 7.6 % High 4.2-5.6 [facility] Comment on above: Performed By: #### 4 8202 ####[facility] LAB [address], [place] [address] Moody Martinez M.D. [id number] LACTIC ACID, PLASMAon 2024 LACTIC ACID, PLASMA 2.9 mmol/L High 0.6-2.0 [facility] Comment on above: Performed By: #### 4 4014 #### LAB [address] [address] Moody Martinez M.D. [id number] LEGIONELLA ANTIGEN, URINEon 02-28-2025 LEGIONELLA ANTIGEN, URINE LEGIONELLA ANT IGEN Negative for Legionella antigen COMMENT: Results may be affected if patient is on diuretics. INTERPRETATION OF RESULTS: Test detects Legionella pneumophilia serogroup 1 antigens in urine. Legionnaires disease cannot be ruled out since other serogroups and species may also cause disease. Normal [facility] Comment on above: Performed By: #### 4 4090 #### LAB [address] [address] Moody Martinez M.D. [id number] MRSA DNA AMPLIFIED PROBEon 0 02-28-2025 MRSA DNA AMPLIFIED PROBE Negative Normal Not Detected, MRSA NEGATIVE [facility] Comment on above: Performed By: #### 4 8061 #### LAB [address] [address] Moody Martinez M.D. [id number] NT PRO BNPon 02-28-2025 Natriuretic peptide B (Bld) [Mass/Vol] 9634 pg/mL High 0-[address] [place] [address] Comment on above: Order Comment: Injur y/Trauma or Illness?:Illness/Other How long have you had these symptoms (acute/chronic)?:Acute Reason for exam?:sob History of cancer?:. Surgeries, chemotherapy, or radiation?:cardiac catheterization Type of Exam?:Initial Additional signs and symptoms?:n Performed By: #### 4 7395 #### LAB [address] [address] Moody Martinez M.D. [id number] Natriuretic peptide B (Bld) [Mass/Vol] 3396 pg/mL High 0-300 [facility] Comment on above: Order Comment: Pride Study Cut-offsRule In:< /= 50 Years >450 pg/mL51 Years - 75 Years >900 pg/mL76 Years - 99 Years >1800 pg/mLRule Out:All patients <300 pg/mL Performed By: #### 4 7395 #### LAB [address] [address] Moody Martinez M.D. [id number] OSMOLALITYon 02-28-2025 Osmolality [Osmolality] 328 mosm/kg High 275-295 [facility] Comment on above: Performed By: #### 4 6230 #### LAB [address] [address] Moody Martinez M.D. [id number] PHOSPHORUSon 02-28-2025 Phosphate [Mass/Vol] 2.5 mg/dL Normal 2.3-3.7 [facility] Comment on above: Performed By: #### 4 6299 #### LAB [address] [address] Moody Martinez M.D. [id number] Phosphate [Mass/Vol] 2.7 mg/dL Normal 2.3-3.7 [facility] Comment on above: Performed By: #### 4 6299 ####[facility] [address] [address] Moody Martinez M.D. [id number] Phosphate [Mass/Vol] 3.5 mg/dL Normal 2.3-3.7 [facility] Comment on above: Performed By: #### 4 6299 #### LAB [address] [address] Moody Martinez M.D. [id number] POC GLUCOSE - [facility] 025 Glucose [Mass/Vol] 236 mg/dL [address] Comment on above: Performed By: #### 4 6932 #### LAB [address] [address] Moody Martinez M.D. [id number] Glucose [Mass/Vol] 153 mg/dL [address] Comment on above: Performed By: #### L [id number] #### [facility] [address] [address] Moody Martinez M.D. [id number] Glucose [Mass/Vol] 57 mg/dL Low [address] [place] [address] Comment on above: Performed By: #### 4 6932 ####[facility] [address] [address] Moody Martinez M.D. [id number] Glucose [Mass/Vol] 73 mg/dL Normal [address] [place] [address] Comment on above: Performed By: #### 4 6932 ####[facility] [address] [address] Moody Martinez M.D. [id number] Glucose [Mass/Vol] 102 mg/dL High [address] [place] [address] Comment on above: Performed By: #### L [id number] #### [facility] [address] [address] Moody Martinez M.D. [id number] Glucose [Mass/Vol] 119 mg/dL High [address] [place] [address] Comment on above: Performed By: #### 4 6932 #### [facility] [address] [address] Moody Martinez M.D. [id number] Glucose [Mass/Vol] 146 mg/dL High [address] [place] [address] Comment on above: Performed By: #### 4 6932 ####[facility] [address] [address] Moody Martinez M.D. [id number] Glucose [Mass/Vol] 177 mg/dL High [address] [place] [address] Comment on above: Performed By: #### 4 6932 ####[facility] [address] [address] Moody Martinez M.D. [id number] Glucose [Mass/Vol] 241 mg/dL High [address] [place] [address] Comment on above: Performed By: #### 4 6932 ####[facility] [address] [address] Moody Martinez M.D. [id number] Glucose [Mass/Vol] 326 mg/dL High [address] [place] [address] Comment on above: Performed By: #### 4 6932 ####[facility] [address] [address] Moody Martinez M.D. [id number] Glucose [Mass/Vol] 429 mg/dL Off scale high [address] Comment on above: Order Comment: Criti christian result acted upon time of test. Test performed at bedside. Performed By: #### 4 6932 ####[facility] [address] [address] Moody Martinez M.D. [id number] POC GLUCOSE > Off scale high [address] [place] [address] Comment on above: Order Comment: Criti christian result acted upon time of test. Test performed at bedside. Performed By: #### 4 6932 ####[facility] [address] [address] Moody Martinez M.D. [id number] POC GLUCOSE > Off scale [address] Comment on above: Order Comment: Criti christian result acted upon time of test. Test performed at bedside. Performed By: #### 4 6932 ####[facility] [address] [address] Moody Martinez M.D. [id number] POC VENOUS BLOOD GAS PANEL-P ROSE Lyons 02-28-2025 BASE EXCESS, VENOUS -5.7 Low -2.0-2.0 [facility] Comment on above: Performed By: #### 4 8717 #### LAB [address] [address] Moody Martinez M.D. [id number] FIO2 50 Normal [facility] Comment on above: Performed By: #### 4 8717 ####[facility] LAB [address] [id number] Moody Martinez M.D. [id number] HCO3 (Bld) [Moles/Vol] 19.3 mmol/L Low 24.0-28.0 [facility] Comment on above: Performed By: #### 4 8717 #### LAB [address] [address] Moody Martinez M.D. [id number] Hematocrit (Bld) [Volume fraction] 37.3 % Low 41.0-53.0 [facility] Comment on above: Performed By: #### 4 8717 #### LAB [address] [address] Moody Martinez M.D. [id number] Hemoglobin (Bld) [Mass/Vol] 12.2 g/dL Low 13.5-17.5 [facility] Comment on above: Performed By: #### 4 8717 #### LAB [address] [address] Moody Martinez M.D. [id number] Oxygen saturation in Blood 93.7 % High 40.0-70.0 [facility] Comment on above: Performed By: #### 4 8717 #### LAB [address] [address] Moody Martinez M.D. [id number] PCO2 VENOUS 35.1 mm Hg Low 41.0-51.0 [facility] Comment on above: Performed By: #### 4 8717 #### LAB [address] [address] Moody Martinez M.D. [id number] PH VENOUS 7.35 Normal 7.32-7.42 [facility] Comment on above: Performed By: #### 4 8717 #### LAB [address] [address] Moody Martinez M.D. [id number] PO2 VENOUS 68 mm Hg High 25-40 [facility] Comment on above: Performed By: #### 4 8717 #### LAB [address] [address] Moody Martinez M.D. [id number] RESP RATE RAD 14 [facility] Comment on above: Performed By: #### 4 8717 #### LAB [address] [address] Moody Martinez M.D. [id number] SPECIMEN SOURCE RADIANCE Not specified [facility] Comment on above: Performed By: #### 4 8717 ####[facility] [address] [address] Moody Martinez M.D. [id number] BASE EXCESS, VENOUS -5.9 Low -2.0-2.0 [facility] Comment on above: Performed By: #### 4 8717 ####[facility] [address] [id number] Moody Martinez M.D. [id number] HCO3 (Bld) [Moles/Vol] 20.5 mmol/L Low 24.0-28.0 [facility] Comment on above: Performed By: #### 4 8717 ####[facility] [address] [address] Moody Martinez M.D. [id number] Hematocrit (Bld) [Volume fraction] 42.0 % Normal 41.0-53.0 [facility] Comment on above: Performed By: #### 4 8717 ####[facility] [address] [address] Moody Martinez M.D. [id number] Hemoglobin (Bld) [Mass/Vol] 13.7 g/dL Normal 13.5-17.5 [facility] Comment on above: Performed By: #### 4 8717 ####[facility] [address] [address] Moody Martinez M.D. [id number] LITER FLOW 2 Normal [facility] Comment on above: Performed By: #### 4 8717 ####[facility] [address] [address] Moody Martinez M.D. [id number] Oxygen saturation in Blood 50.9 % Normal 40.0-70.0 [facility] Comment on above: Performed By: #### 4 8717 ####[facility] [address] [address] Moody Martinez M.D. [id number] PCO2 VENOUS 43.1 mm Hg Normal 41.0-51.0 [facility] Comment on above: Performed By: #### 4 8717 ####[facility] [address] [place], [place] [address] Moody Martinez M.D. [id number] PH VENOUS 7.29 Low 7.32-7.42 [facility] Comment on above: Performed By: #### 4 8717 #### LAB [address] [place], [place] [address] Moody Martinez M.D. [id number] PO2 VENOUS 30 mm Hg Normal 25-40 [facility] Comment on above: Performed By: #### 4 8717 #### LAB [address] [id number] Moody Martinez M.D. [id number] SPECIMEN SOURCE RADIANCE Not specified Normal [facility] Comment on above: Performed By: #### 4 8717 #### LAB [address] [address] Moody Martinez M.D. [id number] PROCALCITONINon 02-28-2025 PROCALCITONIN 0.18 ng/ml Normal <0.50 [facility] Comment on above: Order Comment: Resul ts <0.50 ng/ml represent a low risk of severe sepsis and/or septic shock. Performed By: #### 4 6932 #### LAB [address] [address] Moody Martinez M.D. [id number] REFLEX LACTIC ACID, PLASMAon 02-28-2025 LACTIC ACID, PLASMA 2.0 mmol/L Normal 0.6-2.0 [facility] Comment on above: Performed By: #### 4 4014 #### LAB [address] [address] Moody Martinez M.D. [id number] LACTIC ACID, PLASMA 3.5 mmol/L High 0.6-2.0 [facility] Comment on above: Performed By: #### L [id number] #### LAB [address] [place] [address] Moody Martinez M.D. [id number] RESPIRATORY PCR PANELon 02-01 RESPIRATORY PCR PANEL [...] SARS-COV-2 (BIOFIRE) Not Detected Normal Not Detected [facility] Comment on above: Performed By: #### L [id number] ####[facility] [address] [place] [address] Jose Cisse M.D. [id number] S.PNEUMONIAE URINE ANTIGENon 02-28-2025 S.PNEUMONIAE URINE ANTIGEN STREP PNEUMONIAE ANTIGEN, URINE Presumptive Negative for Pneumococcal pneumoniae A negative result does not rule out Streptococcus pneumoniae infection since the antigen present in the sample may be below the detection limit of the test. [facility] Comment on above: Performed By: #### 4 7222 #### LAB [address] [place], [place] [address] Moody Martinez M.D. [id number] SEDIMENTATION RATEon 025 SEDIMENTATION RATE, ERYTHROCYTE 16 mm/hr Normal 0-20 [facility] Comment on above: Performed By: #### 4 6477 #### LAB [address] [address] Moody Martinez M.D. [id number] TROPONIN X 2 (NOW AND REPEAT IN 2 HOURS)on 02-28-2025 TROPONIN T DELTA % NG/L 176 % Off scale high <2 0% of Baseline Troponin [facility] Comment on above: Performed By: #### 4 6608 #### LAB [address] [place] [id number] Moody Martinez M.D. [id number] TROPONIN T DELTA CHANGE INTERPRETATION Probable acute injury or myocardial infarction. [facility] Comment on above: Performed By: #### 4 6608 #### LAB [address] [address] Moody Martinez M.D. [id number] TROPONIN T NG/L 207 ng/L Off scale high <=22 [facility] Comment on above: Performed By: #### 4 6608 #### LAB [address] [address] Moody Martinez M.D. [id number] BASELINE TROPONIN T NG/L 75 ng/L Off scale high <=22 [facility] Comment on above: Performed By: #### 4 4014 #### LAB [address] [address] Moody Martinez M.D. [id number] TROPONIN T INTERPRETATION Possible acute cardiac injury. Normal [facility] Comment on above: Performed By: #### 4 4014 #### LAB [address] [address] Moody Martinez M.D. [id number] TSH WITH REFLEX FREE T4on TSH Qn 0.61 m[IU]/L Normal 0.27-4.20 [facility] Comment on above: Performed By: #### 4 6612 #### LAB [address] [address] Moody Martinez M.D. [id number] URINALYSISon 02-28-2025 BACTERIA, URINE None Seen Normal None Seen [facility] Comment on above: Order Comment: Micro scopic examination is performed on all urinalysis samples and only positive findings are reported. The test for blood on the chemical analytic portion of urinalysis may also be positive due to hemoglobinuria and myoglobinuria and if red blood cells are present they are quantified by microscopic examination. Performed By: #### 4 6625 #### LAB [address] [address] Moody Martinez M.D. [id number] BILIRUBIN, URINE Negative Normal Negative [facility] Comment on above: Order Comment: Micro scopic examination is performed on all urinalysis samples and only positive findings are reported. The test for blood on the chemical analytic portion of urinalysis may also be positive due to hemoglobinuria and myoglobinuria and if red blood cells are present they are quantified by microscopic examination. Performed By: #### 4 6625 #### LAB [address] [id number] Moody Martinez M.D. [id number] BLOOD, URINE Negative Normal Negative [facility] Comment on above: Order Comment: Micro scopic examination is performed on all urinalysis samples and only positive findings are reported. The test for blood on the chemical analytic portion of urinalysis may also be positive due to hemoglobinuria and myoglobinuria and if red blood cells are present they are quantified by microscopic examination. Performed By: #### 4 6625 #### LAB [address] [address] Moody Martinez M.D. [id number] Clarity (U) Clear Normal Clear [facility] Comment on above: Order Comment: Micro scopic examination is performed on all urinalysis samples and only positive findings are reported. The test for blood on the chemical analytic portion of urinalysis may also be positive due to hemoglobinuria and myoglobinuria and if red blood cells are present they are quantified by microscopic examination. Performed By: #### 4 6625 #### LAB [address] [address] Moody Martinez M.D. [id number] Color (U) Yellow Normal Colorless, Yellow [facility] Comment on above: Order Comment: Micro scopic examination is performed on all urinalysis samples and only positive findings are reported. The test for blood on the chemical analytic portion of urinalysis may also be positive due to hemoglobinuria and myoglobinuria and if red blood cells are present they are quantified by microscopic examination. Performed By: #### 4 6625 #### LAB [address] [address] Moody Martinez M.D. [id number] Glucose Ql (U) >=500 Abnormal Negative [facility] Comment on above: Order Comment: Micro scopic examination is performed on all urinalysis samples and only positive findings are reported. The test for blood on the chemical analytic portion of urinalysis may also be positive due to hemoglobinuria and myoglobinuria and if red blood cells are present they are quantified by microscopic examination. Performed By: #### 4 6625 #### LAB [address] [address] Moody Martinez M.D. [id number] Hyaline casts LM Ql (Urine sed) 3-5 Abnormal 0-2 [facility] Comment on above: Order Comment: Micro scopic examination is performed on all urinalysis samples and only positive findings are reported. The test for blood on the chemical analytic portion of urinalysis may also be positive due to hemoglobinuria and myoglobinuria and if red blood cells are present they are quantified by microscopic examination. Performed By: #### 4 6625 #### LAB [address] [id number] Moody Martinez M.D. [id number] Ketones Ql (U) Trace Abnormal Negative [facility] Comment on above: Order Comment: Micro scopic examination is performed on all urinalysis samples and only positive findings are reported. The test for blood on the chemical analytic portion of urinalysis may also be positive due to hemoglobinuria and myoglobinuria and if red blood cells are present they are quantified by microscopic examination. Performed By: #### 4 6625 #### LAB [address] [address] Moody Martinez M.D. [id number] Leukocyte esterase Test strip Ql (U) Negative Normal Negative [facility] Comment on above: Order Comment: Micro scopic examination is performed on all urinalysis samples and only positive findings are reported. The test for blood on the chemical analytic portion of urinalysis may also be positive due to hemoglobinuria and myoglobinuria and if red blood cells are present they are quantified by microscopic examination. Performed By: #### 4 6625 #### LAB [address] [address] Moody Martinez M.D. [id number] MUCUS, URINE Rare Normal None Seen, Rare [facility] Comment on above: Order Comment: Micro scopic examination is performed on all urinalysis samples and only positive findings are reported. The test for blood on the chemical analytic portion of urinalysis may also be positive due to hemoglobinuria and myoglobinuria and if red blood cells are present they are quantified by microscopic examination. Performed By: #### 4 6625 #### LAB [address] [address] Moody Martinez M.D. [id number] NITRITE, URINE Negative Normal Negative [facility] Comment on above: Order Comment: Micro scopic examination is performed on all urinalysis samples and only positive findings are reported. The test for blood on the chemical analytic portion of urinalysis may also be positive due to hemoglobinuria and myoglobinuria and if red blood cells are present they are quantified by microscopic examination. Performed By: #### 4 6625 #### LAB [address] [address] Moody Martinez M.D. [id number] pH (U) 5.5 [pH] Normal 5.0-7.0 [facility] Comment on above: Order Comment: Micro scopic examination is performed on all urinalysis samples and only positive findings are reported. The test for blood on the chemical analytic portion of urinalysis may also be positive due to hemoglobinuria and myoglobinuria and if red blood cells are present they are quantified by microscopic examination. Performed By: #### 4 6625 #### [facility] [address] [address] Moody Martinez M.D. [id number] PROTEIN, URINE Negative Normal Negative [facility] Comment on above: Order Comment: Micro scopic examination is performed on all urinalysis samples and only positive findings are reported. The test for blood on the chemical analytic portion of urinalysis may also be positive due to hemoglobinuria and myoglobinuria and if red blood cells are present they are quantified by microscopic examination. Performed By: #### 4 6625 #### [facility] [address] [address] Moody Martinez M.D. [id number] RBC LM.HPF (Urine sed) [#/Area] 1 /[HPF] Normal 0-3 [facility] Comment on above: Order Comment: Micro scopic examination is performed on all urinalysis samples and only positive findings are reported. The test for blood on the chemical analytic portion of urinalysis may also be positive due to hemoglobinuria and myoglobinuria and if red blood cells are present they are quantified by microscopic examination. Performed By: #### 4 6625 #### LAB [address] [id number] Moody Martinez M.D. [id number] Specific gravity (U) [Rel density] 1.012 Normal 1.005-1.025 [facility] Comment on above: Order Comment: Micro scopic examination is performed on all urinalysis samples and only positive findings are reported. The test for blood on the chemical analytic portion of urinalysis may also be positive due to hemoglobinuria and myoglobinuria and if red blood cells are present they are quantified by microscopic examination. Performed By: #### 4 6625 #### LAB [address] [address] Moody Martinez M.D. [id number] UROBILINOGEN, URINE <2.0 Normal <2.0 [facility] Comment on above: Order Comment: Micro scopic examination is performed on all urinalysis samples and only positive findings are reported. The test for blood on the chemical analytic portion of urinalysis may also be positive due to hemoglobinuria and myoglobinuria and if red blood cells are present they are quantified by microscopic examination. Performed By: #### 4 6625 #### LAB [address] [address] Moody Martinez M.D. [id number] WBC LM.HPF (Urine sed) [#/Area] 1 /[HPF] Normal 0-5 [facility] Comment on above: Order Comment: Micro scopic examination is performed on all urinalysis samples and only positive findings are reported. The test for blood on the chemical analytic portion of urinalysis may also be positive due to hemoglobinuria and myoglobinuria and if red blood cells are present they are quantified by microscopic examination. Performed By: #### 4 6625 #### LAB [address] [address] Moody Martinez M.D. [id number] URINE AEROBIC CULTUREon - URINE AEROBIC CULTURE URINE CULTURE < 10,000 CFU/mL of normal urogenital microbiota Normal [facility] Comment on above: Performed By: #### 4 4053 ####[facility] [address] [place] [address] Jose Cisse M.D. [id number] XR CHEST PA/APon 02-28-2025 XR CHEST PA/AP [...] on WedFeb 28, 2025 4:00:36 AM EDT [facility] Comment on above: Order Comment: Injur [...] established Performed By: #### 6 517, 7909, 04855 #### [facility] of [address], [address] [place] [address] Customer Care Representative: Jadon Velez MD ALBUMIN/CREATININE RATIO, RANDOM URINE [...] category. Performed By: #### 6 517, 7909, 18335 #### [facility] [address] [place] [address] Customer Care Representative: Jadon Velez MD Creatinine (U) [Mass/Vol] 57 mg/dL Normal 20-320 [facility] Comment on above: Performed By: #### 6 517, 7909, 17567 #### [facility] [place] [address] Customer Care Representative: Jadon Velez MD COMPREHENSIVE METABOLIC PANE [facility] 02-13-2025 Albumin [Mass/Vol] 4.3 g/dL Normal 3.6-5.1 [facility] Comment on above: Performed By: #### 8 66, 7600, 496, 56809, 08086 #### [facility] [place] [address] Customer Care Representative: Jadno Velez MD Albumin/Globulin [Mass ratio] 1.7 {ratio} Normal 1.0-2.5 [facility] Comment on above: Performed By: #### 8 66, 7600, 496, 59183, 80782 #### [facility] of [address] [place] [address] Customer Care Representative: Jadon Velez MD ALP [Catalytic activity/Vol] 61 U/L Normal 35-144 [facility] Comment on above: Performed By: #### 8 66, 7600, 496, 41007, 78417 #### [facility] [place] [address] Customer Care Representative: Jadon Velez MD ALT [Catalytic activity/Vol] 12 U/L Normal 9-46 [facility] Comment on above: Performed By: #### 8 66, 7600, 496, 80155, 87139 #### [facility] of [address] [place] [address] Customer Care Representative: Jadon Velez MD AST [Catalytic activity/Vol] 16 U/L Normal 10-35 [facility] Comment on above: Performed By: #### 8 66, 7600, 496, 49330, 60595 #### [facility] of [address] [place] [address] Customer Care Representative: Jadon Velez MD Bilirubin [Mass/Vol] 0.5 mg/dL Normal 0.2-1.2 [facility] Comment on above: Performed By: #### 8 66, 7600, 496, 71854, 62764 #### [facility] of [address] [place] [address] Customer Care Representative: Jadon Velez MD Calcium [Mass/Vol] 9.3 mg/dL Normal 8.6-10.3 [facility] Comment on above: Performed By: #### 8 66, 7600, 496, 76871, 72575 #### [facility] of [address] [place] [address] Customer Care Representative: Jadon Velez MD Chloride [Moles/Vol] 102 mmol/L Normal 98-110 [facility] Comment on above: Performed By: #### 8 66, 7600, 496, 45737, 30275 #### [facility] of [place] [address] Customer Care Representative: Jadon Velez MD CO2 [Moles/Vol] 28 mmol/L Normal 20-32 [facility] Comment on above: Performed By: #### 8 66, 7600, 496, 47625, 37640 #### [facility] of [place] [address] Customer Care Representative: Jadon Velez MD Creatinine [Mass/Vol] 1.76 mg/dL High 0.70-1.[address] [facility] Comment on above: Performed By: #### 8 66, 7600, 496, 59965, 19150 #### [facility] [place] [address] Customer Care Representative: Jadon Velez MD GFR/1.73 sq M.predicted among non-blacks MDRD (S/P/Bld) [Vol rate/Area] 38 mL/min/{1.73_m2} Low > OR = 60 [facility] Comment on above: Performed By: #### 8 66, 7600, 496, 87682, 21974 #### [facility] [place] [address] Customer Care Representative: Jadon Velez MD Globulin (S) [Mass/Vol] 2.6 g/dL Normal 1.9-3.7 [facility] Comment on above: Performed By: #### 8 66, 7600, 496, 28485, 96476 #### [facility] [place] [address] Customer Care Representative: Jadon Velez MD Glucose [Mass/Vol] 242 mg/dL High 65-99 [facility] Comment on above: Result Comment: Fasting reference interval For someone without known diabetes, a glucose value >125 mg/dL indicates that they may have diabetes and this should be confirmed with a follow-up test. Performed By: #### 8 66, 7600, 496, 68563, 54880 #### [facility] [place] [address] Customer Care Representative: Jadon Velez MD Potassium [Moles/Vol] 4.6 mmol/L Normal 3.5-5.[address] [facility] Comment on above: Performed By: #### 8 66, 7600, 496, 74066, 90302 #### [facility] [place] [address] Customer Care Representative: Jadon Velez MD Protein [Mass/Vol] 6.9 g/dL Normal 6.1-8.1 [facility] Comment on above: Performed By: #### 8 66, 7600, 496, 19056, 41481 #### [facility] of [place] [address] Customer Care Representative: Jadon Velez MD Sodium [Moles/Vol] 140 mmol/L Normal 135-146 [facility] Comment on above: Performed By: #### 8 66, 7600, 496, 76274, 18061 #### [facility] of [place] [address] Customer Care Representative: Jadon Velez MD Urea nitrogen [Mass/Vol] 38 mg/dL High 7-25 [facility] Comment on above: Performed By: #### 8 66, 7600, 496, 12800, 57125 #### [facility] of [place] [address] Customer Care Representative: Jadon Velez MD Urea nitrogen/Creatinine [Mass ratio] 22 mg/mg Normal 6-22 [facility] Comment on above: Performed By: #### 8 66, 7600, 496, 28089, 61200 #### [facility] of [place] [address] Customer Care Representative: Jadon Velez MD COMPREHENSIVE METABOLIC PANE L W/ANION GAPon 02-13-2025 Albumin [Mass/Vol] 4.3 g/dL Normal 3.6-5.1 [facility] Comment on above: Performed By: #### 9 2498 #### [facility] of [place] [address] Customer Care Representative: Jadon Velez MD ALP [Catalytic activity/Vol] 60 U/L Normal 35-144 [facility] Comment on above: Performed By: #### 9 4718 #### [facility] of [place] [address] Customer Care Representative: Jadon Velez MD ALT [Catalytic activity/Vol] 11 U/L Normal 9-46 [facility] Comment on above: Performed By: #### 9 2498 #### [facility] of [place] [address] Customer Care Representative: Jadon Velez MD AST [Catalytic activity/Vol] 15 U/L Normal 10-35 [facility] Comment on above: Performed By: #### 9 2498 #### [facility] of [place] [address] Customer Care Representative: Jadon Velez MD Bilirubin [Mass/Vol] 0.5 mg/dL Normal 0.2-1.2 [facility] Comment on above: Performed By: #### 9 2498 #### [facility] of [place] [address] Customer Care Representative: Jadon Velez MD Calcium [Mass/Vol] 9.3 mg/dL Normal 8.6-10.3 [facility] Comment on above: Performed By: #### 9 2498 #### [facility] of [place] [address] Customer Care Representative: Jadon Velez MD Chloride [Moles/Vol] 102 mmol/L Normal 98-110 [facility] Comment on above: Performed By: #### 9 2498 #### [facility] of [place] [address] Customer Care Representative: Jadon Velez MD CO2 [Moles/Vol] 28 mmol/L Normal 20-32 [facility] Comment on above: Performed By: #### 9 2498 #### [facility] of [place] [address] Customer Care Representative: Jadon Velez MD Creatinine [Mass/Vol] 1.80 mg/dL High 0.70-1.[address] [facility] Comment on above: Performed By: #### 9 2498 #### [facility] of [place] [address] Customer Care Representative: Jadon Velez MD ELECTROLYTE BALANCE 10 mmol/L (calc) Normal 7-17 [facility] Comment on above: Performed By: #### 9 2498 #### [facility] [place] [address] Customer Care Representative: Jadon Velez MD GFR/1.73 sq M.predicted among non-blacks MDRD (S/P/Bld) [Vol rate/Area] 37 mL/min/{1.73_m2} Low > OR = 60 [facility] Comment on above: Performed By: #### 9 2498 #### [facility] [place] [address] Customer Care Representative: Jadon Velez MD Glucose [Mass/Vol] 241 mg/dL High 65-99 [facility] Comment on above: Result Comment: Fasting reference interval For someone without known diabetes, a glucose value >125 mg/dL indicates that they may have diabetes and this should be confirmed with a follow-up test. Performed By: #### 9 2498 #### [facility] [place] [address] Customer Care Representative: Jadon Velez MD Potassium [Moles/Vol] 4.7 mmol/L Normal 3.5-5.3 [facility] Comment on above: Performed By: #### 9 2498 #### [facility] [place] [address] Customer Care Representative: Jadon Velez MD Protein [Mass/Vol] 6.7 g/dL Normal 6.1-8.1 [facility] Comment on above: Performed By: #### 9 2498 #### [facility] [place] [address] Customer Care Representative: Jadon Velez MD Sodium [Moles/Vol] 140 mmol/L Normal 135-146 [facility] Comment on above: Performed By: #### 9 2498 #### [facility] of [place] [address] Customer Care Representative: Jadon Velez MD Urea nitrogen [Mass/Vol] 38 mg/dL High 7-25 [facility] Comment on above: Performed By: #### 9 2498 #### [facility] [address], [address] [place] [address] Customer Care Representative: Jadon Velez MD Comprehensive metabolic 2000 panelon 02-13-2025 Albumin [Mass/Vol] 4.3 g/dL 3.6 - 5.1 g/dL [facility] Albumin/Globulin [Mass ratio] 1.7 {ratio} [facility] ALP [Catalytic activity/Vol] 61 U/L 35 - 144 U/L [facility] ALT [Catalytic activity/Vol] 12 U/L 9 - 46 U/L [facility] AST [Catalytic activity/Vol] 16 U/L 10 - 35 U/L [facility] Bilirubin [Mass/Vol] 0.5 mg/dL 0.2 - 1 .2 mg/dL [facility] Calcium [Mass/Vol] 9.3 mg/dL 8.6 - 10. 3 mg/dL [facility] Chloride [Moles/Vol] 102 mmol/L 98 - 11 0 mmol/L [facility] CO2 [Moles/Vol] 28 mmol/L 20 - 32 mmol/L [facility] Creatinine [Mass/Vol] 1.76 mg/dL High 0.70 - 1.22 mg/dL [facility] GFR/1.73 sq M.predicted among non-blacks MDRD (S/P/Bld) [Vol rate/Area] 38 mL/min/{1.73_m2} Low > OR = 60 mL/min/1.73m2 [facility] Globulin (S) [Mass/Vol] 2.6 g/dL [facility] Glucose [Mass/Vol] 242 mg/dL High 65 - 99 mg/dL [facility] Comment on above: Fasting reference interval For someone without known diabetes, a glucose value >125 mg/dL indicates that they may have diabetes and this should be confirmed with a follow-up test. Interpretation and review of laboratory results Abnormal [facility] Potassium [Moles/Vol] 4.6 mmol/L 3.5 - 5.3 mmol/L [facility] Protein [Mass/Vol] 6.9 g/dL 6.1 - 8.1 g/dL [facility] Sodium [Moles/Vol] 140 mmol/L 135 - 146 mmol/L [facility] Urea nitrogen [Mass/Vol] 38 mg/dL High 7 - 25 mg/d L [facility] Urea nitrogen/Creatinine [Mass ratio] 22 mg/mg [facility] HEMOGLOBIN A1con 02-13-2025 HbA1c (Bld) [Mass [...] for children. Performed By: #### 8 66, 0640, 496, 31041, 45952 #### [facility] [address], [address] [place] [phone] Customer Care Representative: Jadon Velez MD HbA1c (Bld) [Mass fraction]o n 02-13-2025 Interpretation and review of laboratory results Abnormal [facility] Hemoglobin A1con 02-13-2025 HbA1c (Bld) [Mass fraction] 7.4 % High NINF - 5.7 % [facility] Comment on above: For someone without [...] Performed By: #### 8 66, 7600, 496, 76947, 74514 #### [facility] [address], [address] [place] [phone] Customer Care Representative: Jadon Velez MD Cholesterol in HDL [Mass/Vol] 57 mg/dL Normal > OR = 40 [facility] Comment on above: Performed By: #### 8 66, 7600, 496, 09714, 95361 #### [facility] [place] [address] Customer Care Representative: Jadon Velez MD Cholesterol in LDL [Mass/Vol] [...] Ramon SS et al. ANA LAURA. 2013;310(19): 7805-3688 (http://education.[employer].Copier How To/faq/LOZ982) Performed By: #### 8 66, 7600, 496, 80704, 55959 #### [facility] [place] [address] Customer Care Representative: aJdon Velez MD Cholesterol.total/Cholest santos in HDL [Mass ratio] 2.6 {ratio} Normal <5.0 [facility] Comment on above: Performed By: #### 8 66, 7600, 496, 35480, 91593 #### [facility] [place] [address] Customer Care Representative: Jadon Velez MD NON HDL CHOLESTEROL 91 mg/dL (calc) Normal <130 [facility] Comment on above: Result Comment: For patients with diabetes plus 1 major ASCVD risk factor, treating to a non-HDL-C goal of <100 mg/dL (LDL-C of <70 mg/dL) is considered a therapeutic option. Performed By: #### 8 66, 7600, 496, 37878, 34050 #### [facility] [place] [address] Customer Care Representative: Jadon Velez MD Triglyceride [Mass/Vol] 85 mg/dL Normal <150 [facility] Comment on above: Performed By: #### 8 66, 7600, 496, 11954, 74261 #### [facility] [address] [facility] [facility], [address] [place] [address] Customer Care Representative: Jadon Velez MD Lipid 1996 panelon Cholesterol [Mass/Vol] 148 mg/dL [facility] - 200 mg/dL [facility] Cholesterol in HDL [Mass/Vol] 57 mg/dL > OR = 40 [facility] Cholesterol in LDL [Mass/Vol] 74 mg/dL mg/dL (calc) [facility] Comment on above: Reference range: <10 [...] Ramon SORIA et al. ANA LAURA. 2013;310(19): 4442-2449 (http://education.[employer].Copier How To/faq/WJF173) Cholesterol non HDL [Mass/Vol] 91 mg/dL [facility] Comment on above: For patients with di abetes plus 1 major ASCVD risk factor, treating to a non-HDL-C goal of <100 mg/dL (LDL-C of <70 mg/dL) is considered a therapeutic option. Cholesterol.total/Cholest santos in HDL [Mass ratio] 2.6 {ratio} [facility] Triglyceride [Mass/Vol] 85 mg/dL [facility] - 150 mg/dL [facility] NOTEon 02-13-2025 NOTE Normal [facility] Comment on above: Result Comment: This urine was analyzed for the presence of WBC, RBC, bacteria, casts, and other formed elements. Only those elements seen were reported. Performed By: #### 9 2498 #### [facility] [address] [facility], [address] [place] [address] Customer Care Representative: Jadon Velez MD No Panel Informationon 02-13 [facility] T4, FREEon 02-13-2025 Free T4 [Mass/Vol] 1.4 ng/dL Normal 0.8-1.8 [facility] Comment on above: Performed By: #### 8 66, 7600, 496, 22858, 88472 #### [facility] of [place] [address] Customer Care Representative: Jadon Velez MD TSH W/REFLEX TO FT4on 2024 TSH W/REFLEX TO FT4 0.36 mIU/L Low 0.40-4.50 [facility] Comment on above: Performed By: #### 8 66, 7600, 496, 93020, 53279 #### [facility] of [place] [address] Customer Care Representative: Jadon Velez MD URINALYSIS REFLEXon 02-14-20 25 Appearance (U) CLEAR Normal CLEAR [facility] Comment on above: Performed By: #### 9 2498 #### [facility] of [place] [address] Customer Care Representative: Jadon Velez MD BACTERIA NONE SEEN Normal NONE SEEN [facility] Comment on above: Performed By: #### 9 2498 #### [facility] of [place] [address] Customer Care Representative: Jadon Velez MD Bilirubin Ql (U) Negative Normal NEGATIVE [facility] Comment on above: Performed By: #### 9 2498 #### [facility] [place] [address] Customer Care Representative: Jadon Velez MD Color (U) YELLOW Normal YELLOW [facility] Comment on above: Performed By: #### 9 5828 #### [facility] [place] [address] Customer Care Representative: Jadon Velez MD Glucose Ql (U) Negative Normal NEGATIVE [facility] Comment on above: Performed By: #### 9 7648 #### [facility] [place] [address] Customer Care Representative: Jadon Velez MD HYALINE CAST NONE SEEN Normal NONE SEEN [facility] Comment on above: Performed By: #### 9 3488 #### [facility] [place] [address] [place] [address] Customer Care Representative: Jadon Velez MD Ketones Ql (U) Negative Normal NEGATIVE [facility] Comment on above: Performed By: #### 9 2498 #### [facility] [place] [address] Customer Care Representative: Jadon Velez MD Leukocyte esterase Test strip Ql (U) TRACE Abnormal NEGATIVE [facility] Comment on above: Performed By: #### 9 2498 #### [facility] [place] [address] Customer Care Representative: Jadon Velez MD Nitrite Ql (U) Negative Normal NEGATIVE [facility] Comment on above: Performed By: #### 9 2498 #### [facility] [place] [address] Customer Care Representative: Jadon Velez MD OCCULT BLOOD Negative Normal NEGATIVE [facility] Comment on above: Performed By: #### 9 2498 #### [facility] [place] [address] Customer Care Representative: Jadon Velez MD pH (U) 6.0 [pH] Normal 5.0-8.0 [facility] Comment on above: Performed By: #### 9 2498 #### [facility] [place] [address] Customer Care Representative: Jadon Velez MD Protein Ql (U) 1+ Abnormal NEGATIVE [facility] Comment on above: Performed By: #### 9 2498 #### [facility] [place] [address] Customer Care Representative: Jadon Velez MD RBC NONE SEEN Normal < OR = 2 [facility] Comment on above: Performed By: #### 9 2010 #### [facility] [place] [address] Customer Care Representative: Jadon Velez MD Specific gravity (U) [Rel density] 1.011 Normal 1.001-1.035 [facility] Comment on above: Performed By: #### 9 8728 #### [facility] [address], [address] [place] [address] Customer Care Representative: Jadon Velez MD SQUAMOUS EPITHELIAL CELLS NONE SEEN Normal < OR = 5 [facility] Comment on above: Performed By: #### 9 2498 #### [facility] [address], [address] [place] [address] Customer Care Representative: Jadon Velez MD WBC 0-5 Normal < OR = 5 [facility] Comment on above: Performed By: #### 9 2498 #### [facility] [address], [address] [place] [address] Customer Care Representative: Jadon Velez MD Anion gap in Serum or Plasma Ordered By: Kerwin Tamayo on 02-06-2025 Anion gap [Moles/Vol] 12 mmol/L 5-15 [facility] BUN/creatinine ratioOrdered By: Kerwin Tamayo on 02-06-2025 Urea nitrogen/Creatinine [Mass ratio] 23.1 mg/mg High 10-20 [facility] Basic Metabolic Profile (BMP )on 02-06-2025 BUN/CRE 23.1 RATIO High 10-20 [facility] Comment on above: Performed By: #### L 500.2500, L100.0500 ####[facility] [address] [place], [address] Calcium [Mass/Vol] 9.1 mg/dL Normal 7.6-11.0 [facility] Comment on above: Performed By: #### L 500.2500, L100.0500 ####[facility] [address] [place], [address] Chloride [Moles/Vol] 103 mmol/L Normal 98-108 [facility] Comment on above: Performed By: #### L 500.2500, L100.0500 ####[facility] [address] [place], [address] CO2 [Moles/Vol] 23.7 mmol/L Normal 21.0-32.0 [facility] Comment on above: Performed By: #### L 500.2500, L100.0500 ####[facility] [address] [place], [address] Creatinine [Mass/Vol] 1.88 mg/dL High 0.70-1.20 [facility] Comment on above: Performed By: #### L 500.2500, L100.0500 ####[facility] [address] [place], [address] GAP 12 Normal 5-15 [facility] Comment on above: Performed By: #### L 500.2500, L100.0500 ####[facility] [address] [place], [address] GFR/1.73 sq M.predicted among non-blacks MDRD (S/P/Bld) [Vol rate/Area] 35 mL/min/{1.73_m2} Low >[address] [facility] Comment on above: Result Comment: mL/m in/1.73m2 CKD-EPI Creatinine Equation (2020) Performed By: #### L 500.2500, L100.0500 ####[facility] [address] [place], [address] Glucose [Mass/Vol] 287 mg/dL High 70-99 [facility] Comment on above: Performed By: #### L 500.2500, L100.0500 ####[facility] [address] [place], [address] Potassium [Moles/Vol] 4.4 mmol/L Normal 3.3-5.1 [facility] Comment on above: Performed By: #### L 500.2500, L100.0500 ####[facility] [address] [place], [address] Sodium [Moles/Vol] 139 mmol/L Normal 133-145 [facility] Comment on above: Performed By: #### L 500.2500, L100.0500 ####[facility] [address] [place], [address] Urea nitrogen [Mass/Vol] 44 mg/dL High 4-19 [facility] Comment on above: Performed By: #### L 500.2500, L100.0500 ####[facility] [address] [place], [address] CBC-Complete Blood Cnt No Di ffon 02-06-2025 Erythrocyte distribution width (RBC) [Ratio] 13.0 % Normal 11.6-14.6 [facility] Comment on above: Performed By: #### L 500.2500, L100.0500 ####[facility] [address] [place], [address] Hematocrit (Bld) [Volume fraction] 33.8 % Low 40-54 [facility] Comment on above: Performed By: #### L 500.2500, L100.0500 ####[facility] [address] [place], [address] Hemoglobin (Bld) [Mass/Vol] 11.0 g/dL Low 13.0-16.5 [facility] Comment on above: Performed By: #### L 500.2500, L100.0500 ####[facility] [address] [place], [address] MCH (RBC) [Entitic mass] 31.0 pg Normal 27.0-32.0 [facility] Comment on above: Performed By: #### L 500.2500, L100.0500 ####[facility] [address] [place], [address] MCHC (RBC) [Mass/Vol] 32.5 g/dL Normal 32-36 [facility] Comment on above: Performed By: #### L 500.2500, L100.0500 ####[facility] [address] [place], [address] MCV (RBC) [Entitic vol] 95.2 fL High 80-94 [facility] Comment on above: Performed By: #### L 500.2500, L100.0500 ####[facility] [address] [place], [address] Platelet mean volume (Bld) [Entitic vol] 11.2 fL Normal 6.2-12.0 [facility] Comment on above: Performed By: #### L 500.2500, L100.0500 ####[facility] [address] [place], [address] Platelets (Bld) [#/Vol] 239 10*3/uL Normal 150-450 [facility] Comment on above: Performed By: #### L 500.2500, L100.0500 ####[facility] [address] [place], [address] RBC (Bld) [#/Vol] 3.55 10*6/uL Low 4.6-6.2 [facility] Comment on above: Performed By: #### L 500.2500, L100.0500 ####[facility] [address] [place], [address] RDW SD 45.3 fl High 35.1-43.9 [facility] Comment on above: Performed By: #### L 500.2500, L100.0500 ####[facility] [address] [place], [address] WBC (Bld) [#/Vol] 8.9 10*3/uL Normal 4.4-11.0 [facility] Comment on above: Performed By: #### L 500.2500, L100.0500 ####[facility] [address] [place], [address] Carbon dioxide, total [Moles /volume] in Central venous bloodOrdered By: Kerwin Tamayo on 02-06-2025 CO2 [Moles/Vol] 23.7 mmol/L 21.0-32.0 [facility] Chloride assayOrdered By: Daniela Tamayo on 02-06-2025 Chloride [Moles/Vol] 103 mmol/L 98-108 [facility] Erythrocyte distribution wid th (RBC) [Ratio]Ordered By: Kerwin Tamayo on 02-06-2025 Erythrocyte distribution width (RBC) [Entitic vol] 45.3 fL High 35.1-43.9 [facility] Erythrocyte distribution wid th ratioOrdered By: Kerwin Tamayo on 02-06-2025 Erythrocyte distribution width (RBC) [Ratio] 13.0 % 11.6-14.6 [facility] Erythrocyte distribution wid th standard deviationOrdered By: Kerwin Tamayo on 02-06-2025 Erythrocyte distribution width (RBC) [Ratio] 45.3 fl High 35.1-43.9 [facility] GFR/1.73 sq M.predicted park g non-blacks MDRD (S/P/Bld) [Vol rate/Area]Ordered By: Kerwin Tamayo on 02-06-2025 Estimated GFR (MDRD) Non-Af Amer 35 Low >60 [facility] Comment on above: mL/min/1.73m2 CKD-EP I Creatinine Equation (2020) Glomerular filtration rate ( GFR) estimation/1.73 sq m using serum, plasma, or whole bOrdered By: Kerwin Tamayo on 02-06-2025 GFR/1.73 sq M.predicted among non-blacks MDRD (S/P/Bld) [Vol rate/Area] 35 mL/min/{1.73_m2} Low >[address] [facility] Comment on above: mL/min/1.73m2 CKD-EP I Creatinine Equation (2020) Hematocrit Auto (Bld) [Volum e fraction]Ordered By: Kerwin Tamayo on 02-06-2025 Hematocrit (Bld) [Volume fraction] 33.8 % Low 40-54 [facility] Hemoglobin measurementOrdere d By: Kerwin Tamayo on 02-06-2025 Hemoglobin (Bld) [Mass/Vol] 11.0 g/dL Low 13.0-16.5 [facility] MCV (mean corpuscular volume ) determinationOrdered By: Kerwin Tamayo on 02-06-2025 MCV (RBC) [Entitic vol] 95.2 fL High 80-94 [facility] Mean corpuscular hemoglobin (MCH) determinationOrdered By: Kerwin Tamayo on 02-06-2025 MCH (RBC) [Entitic mass] 31.0 pg 27.0-32.0 [facility] Mean corpuscular hemoglobin concentration (MCHC) determinationOrdered By: Kerwin Tamayo on 02-06-2025 MCHC (RBC) [Mass/Vol] 32.5 g/dL 32-36 [facility] Mean platelet volume determi nationOrdered By: Kerwin Tamayo on 02-06-2025 Platelet mean volume (Bld) [Entitic vol] 11.2 fL 6.2-12.0 [facility] Platelet countOrdered By: Daniela Tamayo on 02-06-2025 Platelets (Bld) [#/Vol] 239 10*3/uL 150-450 [facility] Potassium (Unsp spec) [Mass/ Vol]Ordered By: Kerwin Tamayo on 02-06-2025 Potassium [Moles/Vol] 4.4 mmol/L 3.3-5.1 [facility] Potassium measurement (mass/ volume)Ordered By: Kerwin Tamayo on 02-06-2025 Potassium (Unsp spec) [Mass/Vol] 4.4 mmol/L 3.3-5.1 [facility] RBC Auto (Bld) [#/Vol]Ordere d By: Kerwin Tamayo on 02-06-2025 RBC (Bld) [#/Vol] 3.55 10*6/uL Low 4.6-6.2 [facility] Serum creatinine measurement (mass/volume)Ordered By: Kerwin Tamayo on 02-06-2025 Creatinine [Mass/Vol] 1.88 mg/dL High 0.70-1.20 [facility] Serum glucose measurement (m ass/volume)Ordered By: Kerwin Tamayo on 02-06-2025 Glucose [Mass/Vol] 287 mg/dL High 70-99 [facility] Serum or plasma calcium nikkie urement (mass/volume)Ordered By: Kerwin Tamayo on 02-06-2025 Calcium [Mass/Vol] 9.1 mg/dL 7.6-11.0 [facility] Serum or plasma urea nitroge n measurement (mass/volume)Ordered By: Kerwin Tamayo on 02-06-2025 Urea nitrogen [Mass/Vol] 44 mg/dL High 4-19 [facility] Sodium levelOrdered By: Aaron Tamayo on 02-06-2025 Sodium [Moles/Vol] 139 mmol/L 133-145 [facility] White blood cell (WBC) count Ordered By: Kerwin Tamayo on 02-06-2025 WBC (Bld) [#/Vol] 8.9 10*3/uL 4.4-11.0 [facility] CBC W Auto Differential pane l (Bld)on 11-06-2024 Basophils (Bld) [#/Vol] 0.08 x10*3/uL Normal 0.00-0.10 [facility] Comment on above: Performed By: #### 5 7021-8 #### MAGGI PARNELL ([id number]) [facility] ([facility]) [address] [place] [address] Basophils/100 WBC (Bld) 0.8 % Normal 0.0-2.0 [facility] Comment on above: Performed By: #### 5 7021-8 #### MAGGI PARNELL ([id number]) [facility] ([facility]) [address] [place] [address] Eosinophils (Bld) [#/Vol] 0.42 x10*3/uL High 0.00-0. 40 [facility] Comment on above: Performed By: #### 5 7021-8 #### MAGGI PARNELL ([id number]) [facility] ([facility]) [address] [place] [address] Eosinophils/100 WBC (Bld) 4.4 % Normal 0.0-6.0 [facility] Comment on above: Performed By: #### 5 7021-8 #### MAGGI PARNELL ([id number]) [facility] ([facility]) [address] [place] [address] Erythrocyte distribution width (RBC) [Ratio] 14.5 % Normal 11.5-14.5 [facility] Comment on above: Performed By: #### 5 7021-8 #### MAGGI PARNELL ([id number]) [facility] ([facility]) [address] [place], [place] [address] Hematocrit (Bld) [Volume fraction] 34.5 % Low 41.0-52.0 [facility] Comment on above: Performed By: #### 5 7021-8 #### MAGGI PARNELL ([id number]) [facility] ([facility]) [address] [place] [address] Hemoglobin (Bld) [Mass/Vol] 10.6 g/dL Low 13.5-17.5 [facility] Comment on above: Performed By: #### 5 7021-8 #### MAGGI PARNELL ([id number]) [facility] ([facility]) [address] [place] [address] Immature granulocytes (Bld) [#/Vol] 0.03 x10*3/uL Normal 0.00-0.50 [facility] Comment on above: Performed By: #### 5 7021-8 #### MAGGI PARNELL ([id number]) [facility] ([facility]) [address] [place] [address] Immature granulocytes/100 WBC (Bld) 0.3 % Normal 0.0-0.9 [facility] Comment on above: Result Comment: Arielle ture Granulocyte Count (IG) includes promyelocytes, myelocytes and metamyelocytes but does not include bands. Percent differential counts (%) should be interpreted in the context of the absolute cell counts (cells/UL). Performed By: #### 5 7021-8 #### MAGGI PARNELL ([id number]) [facility] ([facility]) [address] [place] [address] 979[address] Lymphocytes (Bld) [#/Vol] 2.35 x10*3/uL Normal 0.80-3. 00 [facility] Comment on above: Performed By: #### 5 7021-8 #### MAGGI PARNELL ([id number]) [facility] ([facility]) [address] [place] [address] Lymphocytes/100 WBC (Bld) 24.5 % Normal 13.0-44.0 [facility] Comment on above: Performed By: #### 5 7021-8 #### MAGGI PARNELL ([id number]) [facility] ([facility]) [address] [place] [address]176 MCH (RBC) [Entitic mass] 30.3 pg Normal 26.0-34.0 [facility] Comment on above: Performed By: #### 5 7021-8 #### MAGGI PARNELL ([id number]) [facility] ([facility]) [address] [place] [address] MCHC (RBC) [Mass/Vol] 30.7 g/dL Low 32.0-36.0 [facility] Comment on above: Performed By: #### 5 7021-8 #### MAGGI PARNELL ([id number]) [facility] ([facility]) [address] [place] [address]48[address] MCV (RBC) [Entitic vol] 99 fL Normal 80-100 U [facility] Comment on above: Performed By: #### 5 7021-8 #### MAGGI PARNELL ([id number]) [facility] ([facility]) [address] [place] [address]349 Monocytes (Bld) [#/Vol] 0.82 x10*3/uL High 0.05-0.80 [facility] Comment on above: Performed By: #### 5 7021-8 #### MAGGI PARNELL ([id number]) [facility] ([facility]) [address] [place] [address] 17493 Monocytes/100 WBC (Bld) 8.6 % Normal 2.0-10.0 U [facility] Comment on above: Performed By: #### 5 7021-8 #### MAGGI PARNELL ([id number]) [facility] ([facility]) [address] [place] [address] 41879 Neutrophils (Bld) [#/Vol] 5.89 x10*3/uL High 1.60-5. 50 [facility] Comment on above: Result Comment: Perc ent differential counts (%) should be interpreted in the context of the absolute cell counts (cells/uL). Performed By: #### 5 7021-8 #### MAGGI PARNELL ([id number]) [facility] ([facility]) [address] [place] [address] 15334 Neutrophils/100 WBC (Bld) 61.4 % Normal 40.0-80.0 [facility] Comment on above: Performed By: #### 5 7021-8 #### MAGGI PARNELL ([id number]) [facility] ([facility]) [address] [place] [address]127 Nucleated RBC/100 WBC (Bld) [Ratio] 0.0 /100 WBCs Normal 0.0-0.0 [facility] Comment on above: Performed By: #### 5 7021-8 #### MAGGI PARNELL ([id number]) [facility] ([facility]) [address] [place] [address]458 Platelets (Bld) [#/Vol] 229 x10*3/uL Normal 150-450 [facility] Comment on above: Performed By: #### 5 7021-8 #### MAGGI PARNELL ([id number]) [facility] ([facility]) [address] [place] [address] 93030 RBC (Bld) [#/Vol] 3.50 x10*6/uL Low 4.50-5.90 [facility] Comment on above: Performed By: #### 5 7021-8 #### MAGGI PARNELL ([id number]) [facility] ([facility]) [address] [place] [address] 79619 WBC (Bld) [#/Vol] 9.6 x10*3/uL Normal 4.4-11.3 [facility] Comment on above: Performed By: #### 5 7021-8 #### MAGGI PARNELL ([id number]) [facility] ([facility]) [address] [place] [address] Comprehensive metabolic 2000 panelon 11-06-2024 Albumin BCP dye [Mass/Vol] 3.7 g/dL Normal 3.4-5.0 [facility] Comment on above: Performed By: #### 1 4959-1 #### ALENA Paredes ([id number]) [facility] ([facility]) [address] [place] [address] ALP [Catalytic activity/Vol] 68 U/L Normal 33-136 [facility] Comment on above: Performed By: #### 1 4959-1 #### ALENA Paredes ([id number]) [facility] ([facility]) [id number] [place] [address] 88410 ALT With P-5'-P [Catalytic activity/Vol] 19 U/L Normal 10-52 [facility] Comment on above: Result Comment: Twila ents treated with Sulfasalazine may generate falsely decreased results for ALT. Performed By: #### 1 4959-1 #### ALENA CORREA L ([id number]) [facility] ([facility]) [address] [place] [address]143 Anion gap [Moles/Vol] 12 mmol/L Normal 10-20 [facility] Comment on above: Performed By: #### 1 4959-1 #### ALENA Paredes ([id number]) [facility] ([facility]) [address] [place] [address] 18422 AST With P-5'-P [Catalytic activity/Vol] 19 U/L Normal 9-39 [facility] Comment on above: Performed By: #### 1 4959-1 #### ALENA CORREA L ([id number]) [facility] ([facility]) [address] [place] [address]6089 Bilirubin [Mass/Vol] 0.3 mg/dL Normal 0.0-1.2 [facility] Comment on above: Performed By: #### 1 4959-1 #### ALENA CORREA L ([id number]) [facility] ([facility]) [address] [place] [address] Calcium [Mass/Vol] 8.9 mg/dL Normal 8.6-10.3 [facility] Comment on above: Performed By: #### 1 4959-1 #### ALENA Paredes ([id number]) [facility] ([facility]) [address] [place] [address] Chloride [Moles/Vol] 108 mmol/L High 98-107 [facility] Comment on above: Performed By: #### 1 4959-1 #### ALENA CORREA L ([id number]) [facility] ([facility]) [address] [place] [address] CO2 [Moles/Vol] 23 mmol/L Normal 21-32 [facility] Comment on above: Performed By: #### 1 4959-1 #### ALENA Paredes ([id number]) [facility] ([facility]) [address] [place] [address] Creatinine [Mass/Vol] 2.37 mg/dL High 0.50-1.30 [facility] Comment on above: Performed By: #### 1 4959-1 #### ALENA CORREA L ([id number]) [facility] ([facility]) [address] [place] [address] Glomerular filtration rate/1.73 sq M.predicted 27 mL/min/1.73m*2 Low >60 [facility] Comment on above: Result Comment: Calc ulations of estimated GFR are performed using the 2020 CKD-EPI Study Refit equation without the race variable for the IDMS-Traceable creatinine methods. https://jasn.asnjournals.org/content/22/ASN.20 83512808 Performed By: #### 1 4959-1 #### ALENA Paredes ([id number]) [facility] ([facility]) [address] [place] [address] Glucose [Mass/Vol] 95 mg/dL Normal 74-99 [facility] Comment on above: Performed By: #### 1 4959-1 #### ALENA Paredes ([id number]) [facility] ([facility]) [address] [place] [address] Potassium [Moles/Vol] 4.9 mmol/L Normal 3.5-5.3 [facility] Comment on above: Performed By: #### 1 4959-1 #### ALENA Paredes ([id number]) [facility] ([facility]) [address] [place] [address]283 Protein [Mass/Vol] 6.4 g/dL Normal 6.4-8.2 [facility] Comment on above: Performed By: #### 1 4959-1 #### ALENA Paredes ([id number]) [facility] ([facility]) [address] [place] [address] 48329 Sodium [Moles/Vol] 138 mmol/L Normal 136-145 [facility] Comment on above: Performed By: #### 1 4959-1 #### ALENA Paredes ([id number]) [facility] ([facility]) [address] [place] [address]1371 Urea nitrogen [Mass/Vol] 48 mg/dL High 6-23 [facility] Comment on above: Performed By: #### 1 4959-1 #### ALENA Paredes ([id number]) [facility] ([facility]) [address] [place] [address]01 HbA1c (Bld) [Mass fraction]o n 11-06-2024 Average glucose Estimated from glycated hemoglobin (Bld) [Mass/Vol] 220 mg/dL Normal Not Established [facility] Comment on above: Order Comment: Diagn osis of Djdhmtdq-OblstiFcq-Maqbdtxi: < or = 5.6%Increased risk for developing diabetes: 5.7-6.4%Diagnostic of diabetes: > or = 6.5% Performed By: #### 1 4959-1 #### ALENA Paredes ([id number]) [facility] ([facility]) [address] [place] [address] 07769 Hemoglobin A1c/Hemoglobin.to alcira 11-06-2024 HbA1c (Bld) [Mass fraction] 9.3 % High See comment [facility] Comment on above: Order Comment: Diagn osis of Dmqdvwyp-YervdaWfr-Ycgninir: < or = 5.6%Increased risk for developing diabetes: 5.7-6.4%Diagnostic of diabetes: > or = 6.5% Performed By: #### 1 4959-1 #### ALENA Paredes ([id number]) [facility] ([facility]) [address] [place], [place] [id number] Thyrotropinon 11-06-2024 TSH Qn 2.65 m[IU]/L Normal 0.44-3.98 [facility] Comment on above: Order Comment: TSH t esting is performed using different testing methodology at [facility] than at [facility] facility. Direct result comparisons should only be made within the same method. Performed By: #### 1 4959-1 #### ALENA Paredes ([id number]) [facility] ([facility]) [address] [place], [place] [phone] Thyroxine.freeon 11-06-2024 Free T4 [Mass/Vol] 0.84 ng/dL Normal 0.61-1.12 [facility] Comment on above: Order Comment: Thyro xine Free testing is performed using different testing methodology at [facility] than at [facility]. 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 Performed By: #### 4 6136 #### LAB [address] [address] Moody Martinez M.D. 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 [id number] Sodium [Moles/Vol] 139 mmol/L Normal 135-145 [facility] [place] [facility] Comment on above: Order Comment: Injur y/Trauma or Illness?:Illness/Other How long have you had these symptoms (acute/chronic)?:Acute Reason for exam?:cross clamp of aorta for CPB Type of Exam?:Initial Additional signs and symptoms?:cp Performed By: #### 4 6124 #### LAB [address], [place] [address] Moody Martinez M.D. [id number] Urea nitrogen [Mass/Vol] 82 mg/dL High 8-25 [facility] Comment on above: Order Comment: Injur y/Trauma or Illness?:Illness/Other How long have you had these symptoms (acute/chronic)?:Acute Reason for exam?:cross clamp of aorta for CPB Type of Exam?:Initial Additional signs and symptoms?:cp Performed By: #### 4 6124 #### LAB [address] [address] Moody Martinez M.D. [id number] Urea nitrogen/Creatinine [Mass ratio] 35.5 mg/mg High 10.0-20.0 [facility] Comment on above: Order Comment: Injur y/Trauma or Illness?:Illness/Other How long have you had these symptoms (acute/chronic)?:Acute Reason for exam?:cross clamp of aorta for CPB Type of Exam?:Initial Additional signs and symptoms?:cp Performed By: #### 4 6124 #### LAB [address] [id number] Moody Martinez M.D. [id number] Anion gap [Moles/Vol] 17 mmol/L Normal 10-20 [facility] Comment on above: Order Comment: [facility] has implemented the eGFR calculation approach that does not have a coefficient for race that conforms to the NKF-ASN Task Force Recommendations. Performed By: #### 4 6124 #### LAB [address] [place], [place] [address] Moody Martinez M.D. [id number] Calcium [Mass/Vol] 8.5 mg/dL Normal 8.4-10.2 [facility] [place] [facility] Comment on above: Order Comment: [facility] has implemented the eGFR calculation approach that does not have a coefficient for race that conforms to the NKF-ASN Task Force Recommendations. Performed By: #### 4 6124 #### LAB [address] [address] Moody Martinez M.D. [id number] Chloride [Moles/Vol] 108 mmol/L Normal 98-108 [facility] Comment on above: Order Comment: [facility] has implemented the eGFR calculation approach that does not have a coefficient for race that conforms to the NKF-ASN Task Force Recommendations. Performed By: #### 4 6124 #### LAB [address] [address] Moody Martinez M.D. [id number] Creatinine [Mass/Vol] 2.44 mg/dL High 0.80-1.30 [facility] Comment on above: Order Comment: [facility] has implemented the eGFR calculation approach that does not have a coefficient for race that conforms to the NKF-ASN Task Force Recommendations. Performed By: #### 4 6124 #### LAB [address] [address] Moody Martinez M.D. [id number] EGFR 26 mL/min/1.73 m2 Low >=60 [facility] Comment on above: Order Comment: [facility] has implemented the eGFR calculation approach that does not have a coefficient for race that conforms to the NKF-ASN Task Force Recommendations. Result Comment: Albin mated GFR was calculated using the 2020 CKD-EPI creatinine equation. Performed By: #### 4 6124 #### LAB [address] [address] Moody Martinez M.D. [id number] Glucose [Mass/Vol] 107 mg/dL High 65-99 [facility] [place] [facility] Comment on above: Order Comment: [facility] has implemented the eGFR calculation approach that does not have a coefficient for race that conforms to the NKF-ASN Task Force Recommendations. Performed By: #### 4 6124 #### LAB [address] [address] Moody Martinez M.D. [id number] HCO3 (Bld) [Moles/Vol] 18 mmol/L Low 21-32 [facility] Comment on above: Order Comment: [facility] has implemented the eGFR calculation approach that does not have a coefficient for race that conforms to the NKF-ASN Task Force Recommendations. Performed By: #### 4 6121 #### LAB [address], [place] [address] Moody Martinez M.D. [id number] Potassium [Moles/Vol] 4.1 mmol/L Normal 3.5-5.1 [facility] Comment on above: Order Comment: [facility] has implemented the eGFR calculation approach that does not have a coefficient for race that conforms to the NKF-ASN Task Force Recommendations. Performed By: #### 4 6124 #### LAB [address] [address] Moody Martinez M.D. [id number] Sodium [Moles/Vol] 139 mmol/L Normal 135-145 [facility] [place] [facility] Comment on above: Order Comment: [facility] has implemented the eGFR calculation approach that does not have a coefficient for race that conforms to the NKF-ASN Task Force Recommendations. Performed By: #### 4 6135 #### LAB [address] [address] Moody Martinez M.D. [id number] Urea nitrogen [Mass/Vol] 85 mg/dL High 8-25 [facility] Comment on above: Order Comment: [facility] has implemented the eGFR calculation approach that does not have a coefficient for race that conforms to the NKF-ASN Task Force Recommendations. Performed By: #### 4 6106 ####[facility] LAB [address] [address] Moody Martinez M.D. [id number] Urea nitrogen/Creatinine [Mass ratio] 34.8 mg/mg High 10.0-20.0 [facility] Comment on above: Order Comment: [facility] has implemented the eGFR calculation approach that does not have a coefficient for race that conforms to the NKF-ASN Task Force Recommendations. Performed By: #### 4 6181 #### LAB [address] [place], [place] [address] Moody Martinez M.D. [id number] BETA-HYDROXYBUTYRATEon 10-28 BETA-HYDROXYBUTYRATE 0.1 mmol/L Normal 0.0-0.3 [facility] Comment on above: Performed By: #### 4 5139 #### LAB [address], [place] [address] Moody Martinez M.D. [id number] BETA-HYDROXYBUTYRATE < Normal 0.0-0.3 [facility] Comment on above: Performed By: #### 4 5139 #### LAB [address], [place] [address] Moody Martinez M.D. [id number] Basic metabolic 2000 panelon 10-28-2024 Anion gap [Moles/Vol] 16 mmol/L 10 - 2 0 mmol/L [facility] Calcium [Mass/Vol] 8.5 mg/dL 8.4 - 10. 2 mg/dL [facility] Chloride [Moles/Vol] 108 mmol/L 98 - 10 8 mmol/L [facility] Creatinine [Mass/Vol] 2.31 mg/dL High 0.80 - 1.30 mg/dL [facility] GFR/1.73 sq M.predicted CKD-EPI (S/P/Bld) [Vol rate/Area] 28 Low - PINF [facility] Comment on above: Estimated GFR was ca lculated using the 2020 CKD-EPI creatinine equation. Glucose [Mass/Vol] 95 mg/dL 65 - 99 mg/dL [facility] HCO3 [Moles/Vol] 19 mmol/L Low 21 - 32 mmol/L [facility] Potassium [Moles/Vol] 4.1 mmol/L 3.5 - 5.1 mmol/L [facility] Sodium [Moles/Vol] 139 mmol/L 135 - 145 mmol/L [facility] Urea nitrogen [Mass/Vol] 82 mg/dL High 8 - 25 mg/d L [facility] Urea nitrogen/Creatinine [Mass ratio] 35.5 mg/mg High 10.0 - 20.0 [facility] has implemented the eGFR calculation approach that does not have a coefficient for race that conforms to the NKF-ASN Task Force Recommendations. [facility] Anion gap [Moles/Vol] 17 mmol/L 10 - 2 0 mmol/L [facility] Calcium [Mass/Vol] 8.5 mg/dL 8.4 - 10. 2 mg/dL [facility] Chloride [Moles/Vol] 108 mmol/L 98 - 10 8 mmol/L [facility] Creatinine [Mass/Vol] 2.44 mg/dL High 0.80 - 1.30 mg/dL [facility] GFR/1.73 sq M.predicted CKD-EPI (S/P/Bld) [Vol rate/Area] 26 Low - PINF [facility] Comment on above: Estimated GFR was ca lculated using the 2020 CKD-EPI creatinine equation. Glucose [Mass/Vol] 107 mg/dL High 65 - 99 mg/dL [facility] HCO3 [Moles/Vol] 18 mmol/L Low 21 - 32 mmol/L [facility] Potassium [Moles/Vol] 4.1 mmol/L 3.5 - 5.1 mmol/L [facility] Sodium [Moles/Vol] 139 mmol/L 135 - 145 mmol/L [facility] Urea nitrogen [Mass/Vol] 85 mg/dL High 8 - 25 mg/d L [facility] Urea nitrogen/Creatinine [Mass ratio] 34.8 mg/mg High 10.0 - 20.0 [facility] has implemented the eGFR calculation approach that does not have a coefficient for race that conforms to the NKF-ASN Task Force Recommendations. [facility] Anion gap [Moles/Vol] 16 mmol/L 10 - 2 0 mmol/L [facility] Calcium [Mass/Vol] 8.3 mg/dL Low 8.4 - 10. 2 mg/dL [facility] Chloride [Moles/Vol] 103 mmol/L 98 - 10 8 mmol/L [facility] Creatinine [Mass/Vol] 2.6 mg/dL High 0.80 - 1.30 mg/dL [facility] GFR/1.73 sq M.predicted CKD-EPI (S/P/Bld) [Vol rate/Area] 24 Low - PINF [facility] Comment on above: Estimated GFR was ca lculated using the 2020 CKD-EPI creatinine equation. Glucose [Mass/Vol] 495 mg/dL Critically high 65 - 99 mg/d L [facility] HCO3 [Moles/Vol] 18 mmol/L Low 21 - 32 mmol/L [facility] Potassium [Moles/Vol] 5 mmol/L 3.5 - 5.1 mmol/L [facility] Sodium [Moles/Vol] 132 mmol/L Low 135 - 145 mmol/L [facility] Urea nitrogen [Mass/Vol] 93 mg/dL High 8 - 25 mg/d L [facility] Urea nitrogen/Creatinine [Mass ratio] 35.8 mg/mg High 10.0 - 20.0 [facility] has implemented the eGFR calculation approach that does not have a coefficient for race that conforms to the NKF-ASN Task Force Recommendations. [facility] Beta hydroxybutyrate [Moles/ Vol]on 10-28-2024 Interpretation and review of laboratory results Normal [facility] Interpretation and review of laboratory results Normal [facility] Interpretation and review of laboratory results Abnormal [facility] Beta-Hydroxybutyrateon 10-28 Beta hydroxybutyrate [Moles/Vol] 0.1 mmol/L 0.0 - 0.3 mmol/L [facility] Beta hydroxybutyrate [Moles/Vol] mmol/L 0.0 - 0.3 mmol/L [facility] Beta hydroxybutyrate [Moles/Vol] 0.4 mmol/L High 0.0 - 0.3 mmol/L [facility] CBC Auto Differentialon 10-02 Basophils (Bld) [#/Vol] 0.08 10*3/uL [facility] Basophils/100 WBC (Bld) 0.8 % [facility] Eosinophils (Bld) [#/Vol] 0.06 10*3/uL [facility] Eosinophils/100 WBC (Bld) 0.6 % [facility] Erythrocyte distribution width (RBC) [Entitic vol] 13.6 % 11.6 - 14.8 % [facility] Hematocrit (Bld) [Volume fraction] 29 % Low 41.0 - 53.0 % [facility] Hemoglobin (Bld) [Mass/Vol] 9.3 g/dL Low 13.5 - 17.5 g/dL [facility] Immature granulocytes (Bld) [#/Vol] 0.03 10*3/uL [facility] Immature granulocytes/100 WBC (Bld) 0.3 % [facility] Comment on above: The IG parameter is the percentage of metamyelocytes, myelocytes and promyelocytes. An immature granulocyte count (IG) of 1% or more suggests the possibility of infection, an IG count of 3% is very likely related to an infection. Interpretation and review of laboratory results Abnormal [facility] Lymphocytes (Bld) [#/Vol] 2.94 10*3/uL [facility] Lymphocytes/100 WBC (Bld) 28.7 % [facility] MCH (RBC) [Entitic mass] 30.3 pg 26. 0 - 34.0 pg [facility] MCHC (RBC) [Mass/Vol] 32.1 g/dL 31.0 - 37.0 g/dL [facility] MCV (RBC) [Entitic vol] 94.5 fL 80.0 - 100.0 fL [facility] Monocytes (Bld) [#/Vol] 1.02 10*3/uL High [facility] Monocytes/100 WBC (Bld) 10 % [facility] Neutrophils (Bld) [#/Vol] 6.12 10*3/uL [facility] Neutrophils/100 WBC (Bld) 59.6 % [facility] Nucleated RBC (Bld) [#/Vol] 0 10*3/uL [facility] Nucleated RBC/100 WBC (Bld) [Ratio] 0 % [facility] Platelet mean volume (Bld) [Entitic vol] 10.8 fL 9.4 - 12.4 fL [facility] Platelets (Bld) [#/Vol] 188 10*3/uL [facility] RBC (Bld) [#/Vol] 3.07 10*6/uL Low [facility] WBC (Bld) [#/Vol] 10.25 10*3/uL [facility] CBC WITH AUTO DIFFERENTIALon 10-28-2024 AUTO NRBC 0.0 % Normal [facility] Comment on above: Performed By: #### L [id number] #### LAB [address] [address] Moody Martinez M.D. [id number] AUTO NRBC ABS COUNT 0.00 K/mcL Normal 0.00-0.00 [facility] Comment on above: Performed By: #### L [id number] #### LAB [address] [address] Moody Martinez M.D. [id number] BASOPHILS ABSOLUTE COUNT 0.08 K/mcL Normal 0.00-0.30 [facility] Comment on above: Performed By: #### L [id number] #### LAB [address] [address] Moody Martinez M.D. [id number] Basophils/100 WBC (Bld) 0.8 % Normal [facility] Comment on above: Performed By: #### L [id number] #### LAB [address] [address] Moody Martinez M.D. [id number] Eosinophils (Bld) [#/Vol] 0.06 10*3/uL Normal 0.00-0.5 0 [facility] Comment on above: Performed By: #### L [id number] #### LAB [address] [address] Moody Martinez M.D. [id number] Eosinophils/100 WBC (Bld) 0.6 % Normal [facility] Comment on above: Performed By: #### L [id number] #### LAB [address] [address] Moody Martinez M.D. [id number] Erythrocyte distribution width (RBC) [Ratio] 13.6 % Normal 11.6-14.8 [facility] Comment on above: Performed By: #### L [id number] #### LAB [address] [address] Moody Martinez M.D. [id number] Hematocrit (Bld) [Volume fraction] 29.0 % Low 41.0-53.0 [facility] Comment on above: Performed By: #### L [id number] #### LAB [address] [address] Moody Martinez M.D. [id number] Hemoglobin (Bld) [Mass/Vol] 9.3 g/dL Low 13.5-17.5 [facility] Comment on above: Performed By: #### L [id number] #### LAB [address] [address] Moody Martinez M.D. [id number] IG ABSOLUTE 0.03 K/mcL Normal 0.00-0.30 [facility] Comment on above: Performed By: #### L [id number] #### LAB [address] [address] Moody Martinez M.D. [id number] IG PERCENT 0.30 % Normal [facility] Comment on above: Result Comment: The IG parameter is the percentage of metamyelocytes, myelocytes and promyelocytes. An immature granulocyte count (IG) of 1% or more suggests the possibility of infection, an IG count of 3% is very likely related to an infection. Performed By: #### L [id number] #### LAB [address] [address] Moody Martinez M.D. [id number] Lymphocytes (Bld) [#/Vol] 2.94 10*3/uL Normal 0.90-4.[address] [place] [address] Comment on above: Performed By: #### L [id number] #### LAB [address] [address] Moody Martinez M.D. [id number] Lymphocytes/100 WBC (Bld) 28.7 % Normal [facility] Comment on above: Performed By: #### L [id number] #### LAB [address] [address] Moody Martinez M.D. [id number] MCH (RBC) [Entitic mass] 30.3 pg Normal 26.0-34.0 [facility] Comment on above: Performed By: #### L [id number] #### LAB [address] [address] Moody Martinez M.D. [id number] MCV (RBC) [Entitic vol] 94.5 fL Normal 80.0-100.0 [facility] Comment on above: Performed By: #### L [id number] #### LAB [address] [address] Moody Martinez M.D. [id number] MEAN CORPUSCULAR HEMOGLOBIN CONC 32.1 g/dL Normal 31.0-37.0 [facility] Comment on above: Performed By: #### L [id number] #### LAB [address] [address] Moody Martinez M.D. [id number] Monocytes (Bld) [#/Vol] 1.02 10*3/uL High 0.30-0.90 [facility] Comment on above: Performed By: #### L [id number] #### LAB [address] [address] Moody Martinez M.D. [id number] Monocytes/100 WBC (Bld) 10.0 % Normal [facility] Comment on above: Performed By: #### L [id number] #### [facility] LAB [address] [address] Moody Martinez M.D. [id number] NEUTROPHILS ABSOLUTE COUNT 6.12 K/mcL Normal 1.70-7.00 [facility] Comment on above: Performed By: #### L [id number] #### LAB [address] [address] Moody Martinez M.D. [id number] Neutrophils/100 WBC (Bld) 59.6 % Normal [facility] Comment on above: Performed By: #### L [id number] #### LAB [address] [address] Moody Martinez M.D. [id number] Platelet mean volume (Bld) [Entitic vol] 10.8 fL Normal 9.4-12.4 [facility] Comment on above: Performed By: #### L [id number] #### LAB [address] [address] Moody Martinez M.D. [id number] Platelets (Bld) [#/Vol] 188 10*3/uL Normal 150-400 [facility] Comment on above: Performed By: #### L [id number] #### [facility] LAB [address] [address] Moody Martinez M.D. [id number] RBC (Bld) [#/Vol] 3.07 10*6/uL Low 4.50-5.90 [facility] Comment on above: Performed By: #### L [id number] #### [facility] LAB [address] [place], [place] [address] Moody Martinez M.D. [id number] WBC (Bld) [#/Vol] 10.25 10*3/uL Normal 4.50-11.00 [facility] Comment on above: Performed By: #### L [id number] #### [facility] LAB [address] [place], [place] [address] Moody Martinez M.D. [id number] CONSULTon 10-28-2024 CONSULT Attestation signed by Pedro West MD at 10/29/2024 9:27 AM Patient was evaluated by Keeley Patton CNP. Patient ID: Patient Name: Enoc Armando Admit Date: 10/27/2024 MR #: [id number] : 1945 Current location: [facility] Physicians: Ryley Jeter MD (Family); Dr Benitez [...] with chronic low back pain presented to [facility] on 10/27/2024 for an elective left [...] Diagnosed in 1994. Patient is managed by [facility] endocrinology for his type 1 diabetes. He is currently taking Admelog insulin: 10 units at mealtime Lantus insulin: 12 units at bedtime Current monitoring regimen: home blood tests - 3 times daily Complications of diabetes include: Retinopathy: Negative Nephropathy: Positive Peripheral Neuropathy: Positive Autonomic Neuropathy: Negative Allergies: Allergies Allergen Reactions Tulppyl-Tdf-Umx Reductase Inhibitors Muscle cramps Home Medications: Outpatient [...] MG table (more content not included)... Normal [facility] Glucose (Bld) [Mass/Vol]on 1 12-29-2023 Glucose [Mass/Vol] 321 mg/dL High 65 - 99 mg/dL [facility] Interpretation and review of laboratory results Abnormal [facility] Glucose [Mass/Vol] 288 mg/dL High 65 - 99 mg/dL [facility] Interpretation and review of laboratory results Abnormal [facility] Glucose [Mass/Vol] 130 mg/dL High 65 - 99 mg/dL [facility] Interpretation and review of laboratory results Abnormal [facility] Glucose [Mass/Vol] 55 mg/dL Critically low 65 - 99 mg/dL [facility] Interpretation and review of laboratory results Abnormal [facility] Critical result acted upon time of test. Test performed at bedside. [facility] Glucose [Mass/Vol] 85 mg/dL 65 - 99 mg/dL [facility] Interpretation and review of laboratory results Normal [facility] Glucose [Mass/Vol] 111 mg/dL High 65 - 99 mg/dL [facility] Interpretation and review of laboratory results Abnormal [facility] Glucose [Mass/Vol] 69 mg/dL 65 - 99 mg/dL [facility] Interpretation and review of laboratory results Normal [facility] Glucose [Mass/Vol] 76 mg/dL 65 - 99 mg/dL [facility] Interpretation and review of laboratory results Normal [facility] Glucose [Mass/Vol] 94 mg/dL 65 - 99 mg/dL [facility] Interpretation and review of laboratory results Normal [facility] Glucose [Mass/Vol] 115 mg/dL High 65 - 99 mg/dL [facility] Interpretation and review of laboratory results Abnormal [facility] Glucose [Mass/Vol] 168 mg/dL High 65 - 99 mg/dL [facility] Interpretation and review of laboratory results Abnormal [facility] Glucose [Mass/Vol] 215 mg/dL High 65 - 99 mg/dL [facility] Interpretation and review of laboratory results Abnormal [facility] Glucose [Mass/Vol] 336 mg/dL High 65 - 99 mg/dL [facility] Interpretation and review of laboratory results Abnormal [facility] Glucose [Mass/Vol] 443 mg/dL Critically high 65 - 99 mg/d L [facility] Interpretation and review of laboratory results Abnormal [facility] Critical result acted upon time of test. Test performed at bedside. [facility] HbA1c (Bld) [Mass fraction]o n 10-28-2024 Average glucose Estimated from glycated hemoglobin (Bld) [Mass/Vol] 237 mg/dL High 74 - 114 mg/dL [facility] Interpretation and review of laboratory results Abnormal [facility] Hemoglobin A1con 10-28-2024 HbA1c (Bld) [Mass fraction] 9.9 % High 4.2 - 5.6 % [facility] MAGNESIUM LEVELon 10-28-2024 Magnesium [Mass/Vol] 2.6 mg/dL High 1.6-2.4 [facility] Comment on above: Performed By: #### 4 [id number] #### LAB [address] [address] Moody Martinez M.D. [id number] Magnesium [Mass/Vol] 2.6 mg/dL High 1.6-2.4 [facility] Comment on above: Performed By: #### 4 [id number] #### LAB [address] [address] Moody Martinez M.D. [id number] Magnesium Levelon 10-28-2024 Magnesium [Mass/Vol] 2.6 mg/dL High 1.6 - 2 .4 mg/dL [facility] Magnesium [Mass/Vol] 2.6 mg/dL High 1.6 - 2 .4 mg/dL [facility] Magnesium [Mass/Vol] 2.6 mg/dL High 1.6 - 2 .4 mg/dL [facility] No Panel Informationon 10-28 Interpretation and review of laboratory results Abnormal [facility] Interpretation and review of laboratory results Abnormal [facility] Interpretation and review of laboratory results Abnormal [facility] PHOSPHORUSon 10-28-2024 Phosphate [Mass/Vol] 4.7 mg/dL High 2.3-3.7 [facility] Comment on above: Performed By: #### 4 6299 ####[facility] LAB [address], [place] [address] Moody Martinez M.D. [id number] POC GLUCOSE - [facility] 024 Glucose [Mass/Vol] 321 mg/dL High 65-99 [facility] [place] [facility] Comment on above: Performed By: #### L [id number] #### MH LAB [address], [place] [address] Moody Martinez M.D. [id number] Glucose [Mass/Vol] 288 mg/dL High [address] [place] [address] Comment on above: Performed By: #### 4 6932 ####[facility] LAB [address] [address] Moody Martinez M.D. [id number] Glucose [Mass/Vol] 130 mg/dL High [address] [place] [address] Comment on above: Performed By: #### 4 6932 ####[facility] LAB [address] [address] Moody Martinez M.D. [id number] Glucose [Mass/Vol] 55 mg/dL Off scale low [address] [place] [address] Comment on above: Order Comment: Criti christian result acted upon time of test. Test performed at bedside. Performed By: #### 4 6932 ####[facility] LAB [address] [address] Moody Martinez M.D. [id number] Glucose [Mass/Vol] 85 mg/dL Normal [address] [place] [address] Comment on above: Performed By: #### 4 6932 ####[facility] [address] [address] Moody Martinez M.D. [id number] Glucose [Mass/Vol] 111 mg/dL High [address] [place] [address] Comment on above: Performed By: #### L [id number] #### LAB [address] [address] Moody Martinez M.D. [id number] Glucose [Mass/Vol] 69 mg/dL Normal [address] [place] [address] Comment on above: Performed By: #### 4 6932 #### LAB [address] [address] Moody Martinez M.D. [id number] Glucose [Mass/Vol] 76 mg/dL Normal [address] [place] [address] Comment on above: Performed By: #### 4 6932 #### LAB [address] [address] Moody Martinez M.D. [id number] Glucose [Mass/Vol] 94 mg/dL Normal [address] [place] [address] Comment on above: Performed By: #### 4 6932 ####[facility] LAB [address] [address] Moody Martinez M.D. [id number] Glucose [Mass/Vol] 115 mg/dL High [address] [place] [address] Comment on above: Performed By: #### 4 6932 #### LAB [address] [address] Moody Martinez M.D. [id number] Glucose [Mass/Vol] 168 mg/dL High [address] [place] [address] Comment on above: Performed By: #### L [id number] #### LAB [address] [address] Moody Martinez M.D. [id number] Glucose [Mass/Vol] 215 mg/dL High [address] [place] [address] Comment on above: Performed By: #### 4 6932 #### LAB [address] [address] Moody Martinez M.D. [id number] Glucose [Mass/Vol] 336 mg/dL High [address] [place] [address] Comment on above: Performed By: #### 4 6932 #### LAB [address] [address] Moody Martinez M.D. [id number] Phosphoruson 10-28-2024 Phosphate [Mass/Vol] 4.7 mg/dL High 2.3 - 3 .7 mg/dL [facility] Phosphate [Mass/Vol] 4.4 mg/dL High 2.3 - 3 .7 mg/dL [facility] ABOR VERIFICATIONon ABO and Rh group Nom (Bld) Blood group A Rh(D) positive [facility] ABO and Rh group Nom (Bld) ABO/Rh Verification [facility] Comment on above: Result Comment: Twila ent's ABO/Rh is verified. ABOR Verificationon 024 ABO and Rh group Nom (Bld) Blood group A Rh(D) positive [facility] ABO and Rh group Nom (Bld) ABO/Rh Verification [facility] Comment on above: Patient's ABO/Rh is verified. [facility] AMYLASEon 10-27-2024 Amylase [Catalytic activity/Vol] 26.8 U/L Normal 13.0-53.0 [facility] Comment on above: Performed By: #### 4 6932 #### LAB [address], [place] [address] Moody Martinez M.D. [id number] APTTon 10-27-2024 aPTT Coag (Bld) [Time] 74 s High [facility] aPTT Coag (Bld) [Time] 74 s High 23-34 [facility] Comment on above: Order Comment: Thera peutic range for APTT's is 68 - 104 seconds Performed By: #### 4 5113 #### LAB [address], [place] [address] Moody Martinez M.D. [id number] Amylaseon 10-27-2024 Amylase.pancreatic [Catalytic activity/Vol] 26.8 U/L 13.0 - 53.0 U/L [facility] BASIC METABOLIC PANELon - Anion gap [Moles/Vol] 16 mmol/L Normal 10-20 [facility] Comment on above: Order Comment: [facility] has implemented the eGFR calculation approach that does not have a coefficient for race that conforms to the NKF-ASN Task Force Recommendations. Performed By: #### 4 6932 #### LAB [address] [id number] Moody Martinez M.D. [id number] Calcium [Mass/Vol] 8.3 mg/dL Low 8.4-10.2 [facility] [place] [facility] Comment on above: Order Comment: [facility] has implemented the eGFR calculation approach that does not have a coefficient for race that conforms to the NKF-ASN Task Force Recommendations. Performed By: #### 4 6932 #### LAB [address], [place] [address] Moody Martinez M.D. [id number] Chloride [Moles/Vol] 103 mmol/L Normal 98-108 [facility] Comment on above: Order Comment: [facility] has implemented the eGFR calculation approach that does not have a coefficient for race that conforms to the NKF-ASN Task Force Recommendations. Performed By: #### 4 6932 #### LAB [address], [place] [address] Moody Martinez M.D. [id number] Creatinine [Mass/Vol] 2.60 mg/dL High 0.80-1.30 [facility] Comment on above: Order Comment: [facility] has implemented the eGFR calculation approach that does not have a coefficient for race that conforms to the NKF-ASN Task Force Recommendations. Performed By: #### 4 6932 #### LAB [address] [address] Moody Martinez M.D. [id number] EGFR 24 mL/min/1.73 m2 Low >=60 [facility] Comment on above: Order Comment: [facility] has implemented the eGFR calculation approach that does not have a coefficient for race that conforms to the NKF-ASN Task Force Recommendations. Result Comment: Albin mated GFR was calculated using the 2020 CKD-EPI creatinine equation. Performed By: #### 4 6932 #### LAB [address], [place] [address] Moody Martinez M.D. [id number] Glucose [Mass/Vol] 495 mg/dL Off scale high 65-99 [facility] Comment on above: Order Comment: [facility] has implemented the eGFR calculation approach that does not have a coefficient for race that conforms to the NKF-ASN Task Force Recommendations. Performed By: #### 4 6932 #### LAB [address], [place] [address] Moody Martinez M.D. [id number] HCO3 (Bld) [Moles/Vol] 18 mmol/L Low 21-32 [facility] Comment on above: Order Comment: [facility] has implemented the eGFR calculation approach that does not have a coefficient for race that conforms to the NKF-ASN Task Force Recommendations. Performed By: #### 4 6988 #### LAB [address], [place] [address] Moody Martinez M.D. [id number] Potassium [Moles/Vol] 5.0 mmol/L Normal 3.5-5.1 [facility] Comment on above: Order Comment: [facility] has implemented the eGFR calculation approach that does not have a coefficient for race that conforms to the NKF-ASN Task Force Recommendations. Performed By: #### 4 6932 #### LAB [address] [address] Moody Martinez M.D. [id number] Sodium [Moles/Vol] 132 mmol/L Low 135-145 [facility] [place] [facility] Comment on above: Order Comment: [facility] has implemented the eGFR calculation approach that does not have a coefficient for race that conforms to the NKF-ASN Task Force Recommendations. Performed By: #### 4 6932 #### LAB [address] [address] Moody Martinez M.D. [id number] Urea nitrogen [Mass/Vol] 93 mg/dL High 8-25 [facility] Comment on above: Order Comment: [facility] has implemented the eGFR calculation approach that does not have a coefficient for race that conforms to the NKF-ASN Task Force Recommendations. Performed By: #### 4 6932 #### LAB [address], [place] [address] Moody Martinez M.D. [id number] Urea nitrogen/Creatinine [Mass ratio] 35.8 mg/mg High 10.0-20.0 [facility] Comment on above: Order Comment: [facility] has implemented the eGFR calculation approach that does not have a coefficient for race that conforms to the NKF-ASN Task Force Recommendations. Performed By: #### 4 6932 #### LAB [address] [address] Moody Martinez M.D. [id number] BETA-HYDROXYBUTYRATEon 10-27 BETA-HYDROXYBUTYRATE 0.4 mmol/L High 0.0-0.3 [facility] Comment on above: Performed By: #### 4 5139 #### LAB [address] [address] Moody Martinez M.D. [id number] BETA-HYDROXYBUTYRATE 2.3 mmol/L High 0.0-0.3 [facility] Comment on above: Performed By: #### 4 5139 #### LAB [address] [address] Moody Martinez M.D. [id number] BETA-HYDROXYBUTYRATE 0.7 mmol/L High 0.0-0.3 [facility] Comment on above: Performed By: #### 4 6932 #### LAB [address] [address] Moody Martinez M.D. [id number] BILIRUBIN, DIRECTon 10-27-20 BILIRUBIN, DIRECT < Normal 0.0-0.4 [facility] Comment on above: Performed By: #### 4 5145 #### LAB [address] [address] Moody Martinez M.D. [id number] Beta hydroxybutyrate [Moles/ Vol]on 10-27-2024 Interpretation and review of laboratory results Abnormal [facility] Interpretation and review of laboratory results Abnormal [facility] Beta-Hydroxybutyrateon 10-27 Beta hydroxybutyrate [Moles/Vol] 2.3 mmol/L High 0.0 - 0.3 mmol/L [facility] Beta hydroxybutyrate [Moles/Vol] 0.7 mmol/L High 0.0 - 0.3 mmol/L [facility] Bilirubin.direct [Mass/Vol]o n 10-27-2024 Bilirubin.conjugated [Mass/Vol] mg/dL 0.0 - 0.4 mg/dL [facility] Interpretation and review of laboratory results Normal [facility] Blood type and Indirect anti body screen panel (Bld)on 10-27-2024 ABO and Rh group Nom (Bld) Blood group A Rh(D) positive [facility] Blood group antibody screen Ql Negative [facility] Specimen Expires 10/30/2024 23:59 EST [facility] CBC Auto Differentialon 10-02 Basophils (Bld) [#/Vol] 0.04 10*3/uL [facility] Basophils/100 WBC (Bld) 0.5 % [facility] Eosinophils (Bld) [#/Vol] 0 10*3/uL [facility] Eosinophils/100 WBC (Bld) 0 % [facility] Erythrocyte distribution width (RBC) [Entitic vol] 13.7 % 11.6 - 14.8 % [facility] Hematocrit (Bld) [Volume fraction] 34.8 % Low 41.0 - 53.0 % [facility] Hemoglobin (Bld) [Mass/Vol] 11.2 g/dL Low 13.5 - 17.5 g/dL [facility] Immature granulocytes (Bld) [#/Vol] 0.04 10*3/uL [facility] Immature granulocytes/100 WBC (Bld) 0.5 % [facility] Comment on above: The IG parameter is the percentage of metamyelocytes, myelocytes and promyelocytes. An immature granulocyte count (IG) of 1% or more suggests the possibility of infection, an IG count of 3% is very likely related to an infection. Interpretation and review of laboratory results Abnormal [facility] Lymphocytes (Bld) [#/Vol] 1.2 10*3/uL [facility] Lymphocytes/100 WBC (Bld) 13.8 % [facility] MCH (RBC) [Entitic mass] 30 pg 26. 0 - 34.0 pg [facility] MCHC (RBC) [Mass/Vol] 32.2 g/dL 31.0 - 37.0 g/dL [facility] MCV (RBC) [Entitic vol] 93.3 fL 80.0 - 100.0 fL [facility] Monocytes (Bld) [#/Vol] 0.11 10*3/uL Low [facility] Monocytes/100 WBC (Bld) 1.3 % [facility] Neutrophils (Bld) [#/Vol] 7.32 10*3/uL High [facility] Neutrophils/100 WBC (Bld) 83.9 % [facility] Nucleated RBC (Bld) [#/Vol] 0 10*3/uL [facility] Nucleated RBC/100 WBC (Bld) [Ratio] 0 % [facility] Platelet mean volume (Bld) [Entitic vol] 11.2 fL 9.4 - 12.4 fL [facility] Platelets (Bld) [#/Vol] 234 10*3/uL [facility] RBC (Bld) [#/Vol] 3.73 10*6/uL Low [facility] WBC (Bld) [#/Vol] 8.71 10*3/uL [facility] CBC WITH AUTO DIFFERENTIALon 10-27-2024 AUTO NRBC 0.0 % Normal [facility] Comment on above: Performed By: #### L [id number] #### LAB [address] [address] Moody Martinez M.D. [id number] AUTO NRBC ABS COUNT 0.00 K/mcL Normal 0.00-0.00 [facility] Comment on above: Performed By: #### L [id number] #### LAB [address] [place] [address] Moody Martinez M.D. [id number] BASOPHILS ABSOLUTE COUNT 0.04 K/mcL Normal 0.00-0.30 [facility] Comment on above: Performed By: #### L [id number] #### LAB [address] [place] [address] Moody Martinez M.D. [id number] Basophils/100 WBC (Bld) 0.5 % Normal [facility] Comment on above: Performed By: #### L [id number] #### LAB [address] [place] [address] Moody Martinez M.D. [id number] Eosinophils (Bld) [#/Vol] 0.00 10*3/uL Normal 0.00-0.5 0 [facility] Comment on above: Performed By: #### L [id number] #### LAB [address] [place] [address] Moody Martinez M.D. [id number] Eosinophils/100 WBC (Bld) 0.0 % [facility] Comment on above: Performed By: #### L [id number] #### LAB [address] [place] [address] Moody Martinez M.D. [id number] Erythrocyte distribution width (RBC) [Ratio] 13.7 % Normal 11.6-14.8 [facility] Comment on above: Performed By: #### L [id number] #### LAB [address] [address] Moody Martinez M.D. [id number] Hematocrit (Bld) [Volume fraction] 34.8 % Low 41.0-53.0 [facility] Comment on above: Performed By: #### L [id number] #### LAB [address] [address] Moody Martinez M.D. [id number] Hemoglobin (Bld) [Mass/Vol] 11.2 g/dL Low 13.5-17.5 [facility] Comment on above: Performed By: #### L [id number] #### LAB [address] [address] Moody Martinez M.D. [id number] IG ABSOLUTE 0.04 K/mcL Normal 0.00-0.30 [facility] Comment on above: Performed By: #### L [id number] #### LAB [address] [address] Moody Martinez M.D. [id number] IG PERCENT 0.50 % [facility] Comment on above: Result Comment: The IG parameter is the percentage of metamyelocytes, myelocytes and promyelocytes. An immature granulocyte count (IG) of 1% or more suggests the possibility of infection, an IG count of 3% is very likely related to an infection. Performed By: #### L [id number] #### LAB [address] [address] Moody Martinez M.D. [id number] Lymphocytes (Bld) [#/Vol] 1.20 10*3/uL Normal 0.90-4.0 0 [facility] Comment on above: Performed By: #### L [id number] #### LAB [address] [address] Moody Martinez M.D. [id number] Lymphocytes/100 WBC (Bld) 13.8 % Normal [facility] Comment on above: Performed By: #### L [id number] ####[facility] LAB [address] [address] Moody Martinez M.D. [id number] MCH (RBC) [Entitic mass] 30.0 pg Normal 26.0-34.0 [facility] Comment on above: Performed By: #### L [id number] #### LAB [address] [address] Moody Martinez M.D. [id number] MCV (RBC) [Entitic vol] 93.3 fL Normal 80.0-100.0 [facility] Comment on above: Performed By: #### L [id number] #### LAB [address] [address] Moody Martinez M.D. [id number] MEAN CORPUSCULAR HEMOGLOBIN CONC 32.2 g/dL Normal 31.0-37.0 [facility] Comment on above: Performed By: #### L [id number] #### LAB [address] [address] Moody Martinez M.D. [id number] Monocytes (Bld) [#/Vol] 0.11 10*3/uL Low 0.30-0.90 [facility] Comment on above: Performed By: #### L [id number] #### LAB [address] [address] Moody Martinez M.D. [id number] Monocytes/100 WBC (Bld) 1.3 % Normal [facility] Comment on above: Performed By: #### L [id number] #### LAB [address] [address] Moody Martinez M.D. [id number] NEUTROPHILS ABSOLUTE COUNT 7.32 K/mcL High 1.70-7.00 [facility] Comment on above: Performed By: #### L [id number] #### LAB [address] [address] Moody Martinez M.D. [id number] Neutrophils/100 WBC (Bld) 83.9 % Normal [facility] Comment on above: Performed By: #### L [id number] #### LAB [address] [address] Moody Martinez M.D. [id number] Platelet mean volume (Bld) [Entitic vol] 11.2 fL Normal 9.4-12.4 [facility] Comment on above: Performed By: #### L [id number] #### LAB [address] [address] Moody Martinez M.D. [id number] Platelets (Bld) [#/Vol] 234 10*3/uL Normal 150-400 [facility] Comment on above: Performed By: #### L [id number] #### LAB [address] [address] Moody Martinez M.D. [id number] RBC (Bld) [#/Vol] 3.73 10*6/uL Low 4.50-5.90 [facility] Comment on above: Performed By: #### L [id number] #### LAB [address] [address] Moody Martinez M.D. [id number] WBC (Bld) [#/Vol] 8.71 10*3/uL Normal 4.50-11.00 [facility] Comment on above: Performed By: #### L [id number] #### LAB [address] [address] Moody Martinez M.D. [id number] CITRATED TEG (CARDIAC) WITH HEPARINASE PANEL [facility] 10-27-2024 (CFF-FLEV) CITRATED FUNCTIONAL FIBRINOGEN -EST. FUNCTIONAL FIBRINOGEN LEVEL 381.4 mg/dL Normal 278.0-581.0 [facility] Comment on above: Performed By: #### L [id number] #### LAB [address] [address] Moody Martinez M.D. [id number] (CFF-MA) CITRATED FUNCTIONAL FIBRINOGEN - [place] 20.9 mm Normal 15.0-32.0 [facility] Comment on above: Performed By: #### L [id number] #### LAB [address] [address] Moody Martinez M.D. [id number] (CK-ANGLE) CITRATED KAOLIN-ALPHA ANGLE 73.2 deg Normal 63.0-78.0 [facility] Comment on above: Performed By: #### L [id number] #### LAB [address] [address] Moody Martinez M.D. [id number] (CK-K) CITRATED KAOLIN-SPEED OF CLOT FORMATION 1.3 min Normal 0.8-2.1 [facility] Comment on above: Performed By: #### L [id number] #### LAB [address] [address] Moody Martinez M.D. [id number] (CK-MA) CITRATED KAOLIN-MAXIMUM CLOT STRENGTH 50.9 mm Low 52.0-69.0 [facility] Comment on above: Performed By: #### L [id number] #### LAB [address] [address] Moody Martinez M.D. [id number] (CK-R) CITRATED KAOLIN - REACTION TIME 16.4 min High 4.6-9.1 [facility] Comment on above: Performed By: #### L [id number] #### LAB [address] [address] Moody Martinez M.D. [id number] (CKH-R) CITRATED KAOLIN WITH HEPARINASE-REACTION TIME 7.6 min Normal 4.3-8.3 [facility] Comment on above: Performed By: #### L [id number] #### LAB [address] [address] Moody Martinez M.D. [id number] (HOUSE OFFICER-[place]) CITRATED RAPID TEG - [place] 62.3 mm Normal 52.0-70.0 [facility] Comment on above: Performed By: #### L [id number] #### LAB [address] [address] Moody Martinez M.D. [id number] COMPREHENSIVE METABOLIC PANE Jame 10-27-2024 Albumin [Mass/Vol] 3.4 g/dL Normal 3.2-5.2 [facility] [place] [facility] Comment on above: Order Comment: [facility] has implemented the eGFR calculation approach that does not have a coefficient for race that conforms to the NKF-ASN Task Force Recommendations. Performed By: #### 4 6126 #### LAB [address] [address] Moody Martinez M.D. [id number] ALP [Catalytic activity/Vol] 86 U/L Normal 40-150 [facility] Comment on above: Order Comment: [facility] has implemented the eGFR calculation approach that does not have a coefficient for race that conforms to the NKF-ASN Task Force Recommendations. Performed By: #### 4 6126 #### LAB [address] [address] Moody Martinez M.D. [id number] ALT [Catalytic activity/Vol] 13 U/L Normal 0-50 U/L [facility] Comment on above: Order Comment: [facility] has implemented the eGFR calculation approach that does not have a coefficient for race that conforms to the NKF-ASN Task Force Recommendations. Performed By: #### 4 6126 #### LAB [address] [address] Moody Martinez M.D. [id number] Anion gap [Moles/Vol] 20 mmol/L Normal 10-20 [facility] Comment on above: Order Comment: [facility] has implemented the eGFR calculation approach that does not have a coefficient for race that conforms to the NKF-ASN Task Force Recommendations. Performed By: #### 4 6126 #### LAB [address] [address] Moody Martinez M.D. [id number] AST [Catalytic activity/Vol] 12 U/L Normal 0-50 U/L [facility] Comment on above: Order Comment: [facility] has implemented the eGFR calculation approach that does not have a coefficient for race that conforms to the NKF-ASN Task Force Recommendations. Performed By: #### 4 6126 #### LAB [address] [id number] Moody Martinez M.D. [id number] Bilirubin [Mass/Vol] 0.3 mg/dL Normal 0.0-1.3 [facility] Comment on above: Order Comment: [facility] has implemented the eGFR calculation approach that does not have a coefficient for race that conforms to the NKF-ASN Task Force Recommendations. Performed By: #### 4 6126 #### LAB [address] [address] Moody Martinez M.D. [id number] Calcium [Mass/Vol] 8.4 mg/dL Normal 8.4-10.2 [facility] [place] [facility] Comment on above: Order Comment: [facility] has implemented the eGFR calculation approach that does not have a coefficient for race that conforms to the NKF-ASN Task Force Recommendations. Performed By: #### 4 6126 #### LAB [address] [address] Moody Martinez M.D. [id number] Chloride [Moles/Vol] 99 mmol/L Normal 98-108 [facility] Comment on above: Order Comment: [facility] has implemented the eGFR calculation approach that does not have a coefficient for race that conforms to the NKF-ASN Task Force Recommendations. Performed By: #### 4 6126 #### LAB [address] [address] Moody Martinez M.D. [id number] Creatinine [Mass/Vol] 2.55 mg/dL High 0.80-1.30 [facility] Comment on above: Order Comment: [facility] has implemented the eGFR calculation approach that does not have a coefficient for race that conforms to the NKF-ASN Task Force Recommendations. Performed By: #### 4 6126 #### LAB [address] [address] Moody Martinez M.D. [id number] EGFR 25 mL/min/1.73 m2 Low >=60 [facility] Comment on above: Order Comment: [facility] has implemented the eGFR calculation approach that does not have a coefficient for race that conforms to the NKF-ASN Task Force Recommendations. Result Comment: Albin mated GFR was calculated using the 2020 CKD-EPI creatinine equation. Performed By: #### 4 6126 #### LAB [address] [address] Moody Martinez M.D. [id number] Glucose [Mass/Vol] 564 mg/dL Off scale high 65-99 [facility] Comment on above: Order Comment: [facility] has implemented the eGFR calculation approach that does not have a coefficient for race that conforms to the NKF-ASN Task Force Recommendations. Performed By: #### 4 [id number] #### LAB [address] [address] Moody Martinez M.D. [id number] HCO3 (Bld) [Moles/Vol] 15 mmol/L Low 21-32 [facility] Comment on above: Order Comment: [facility] has implemented the eGFR calculation approach that does not have a coefficient for race that conforms to the NKF-ASN Task Force Recommendations. Performed By: #### 4 6126 #### LAB [address] [address] Moody Martinez M.D. [id number] Potassium [Moles/Vol] 5.9 mmol/L High 3.5-5.1 [facility] Comment on above: Order Comment: [facility] has implemented the eGFR calculation approach that does not have a coefficient for race that conforms to the NKF-ASN Task Force Recommendations. Performed By: #### 4 6126 ####[facility] LAB [address] [address] Moody Martinez M.D. [id number] Protein [Mass/Vol] 5.8 g/dL Low 6.0-8.0 [facility] [place] [facility] Comment on above: Order Comment: [facility] has implemented the eGFR calculation approach that does not have a coefficient for race that conforms to the NKF-ASN Task Force Recommendations. Performed By: #### 4 6126 #### LAB [address] [address] Moody Martinez M.D. [id number] Sodium [Moles/Vol] 128 mmol/L Low 135-145 [facility] [place] [facility] Comment on above: Order Comment: [facility] has implemented the eGFR calculation approach that does not have a coefficient for race that conforms to the NKF-ASN Task Force Recommendations. Performed By: #### 4 6126 #### LAB [address] [address] Moody Martinez M.D. [id number] Urea nitrogen [Mass/Vol] 93 mg/dL High 8-25 [facility] Comment on above: Order Comment: [facility] has implemented the eGFR calculation approach that does not have a coefficient for race that conforms to the NKF-ASN Task Force Recommendations. Performed By: #### 4 6126 #### LAB [address] [address] Moody Martinez M.D. [id number] Urea nitrogen/Creatinine [Mass ratio] 36.5 mg/mg High 10.0-20.0 [facility] Comment on above: Order Comment: [facility] has implemented the eGFR calculation approach that does not have a coefficient for race that conforms to the NKF-ASN Task Force Recommendations. Performed By: #### 4 6126 #### LAB [address] [address] Moody Martinez M.D. [id number] Albumin [Mass/Vol] 3.5 g/dL Normal 3.2-5.2 [facility] [place] [facility] Comment on above: Order Comment: [facility] has implemented the eGFR calculation approach that does not have a coefficient for race that conforms to the NKF-ASN Task Force Recommendations. Performed By: #### 4 6126 #### LAB [address] [address] Moody Martinez M.D. [id number] ALP [Catalytic activity/Vol] 92 U/L Normal 40-150 [facility] Comment on above: Order Comment: [facility] has implemented the eGFR calculation approach that does not have a coefficient for race that conforms to the NKF-ASN Task Force Recommendations. Performed By: #### 4 6126 #### LAB [address] [address] Moody Martinez M.D. [id number] ALT [Catalytic activity/Vol] 21 U/L Normal 0-50 U/L [facility] Comment on above: Order Comment: [facility] has implemented the eGFR calculation approach that does not have a coefficient for race that conforms to the NKF-ASN Task Force Recommendations. Performed By: #### 4 6126 #### LAB [address] [address] Moody Martinez M.D. [id number] Anion gap [Moles/Vol] 20 mmol/L Normal 10-20 [facility] Comment on above: Order Comment: [facility] has implemented the eGFR calculation approach that does not have a coefficient for race that conforms to the NKF-ASN Task Force Recommendations. Performed By: #### 4 6126 #### LAB [address] [address] Moody Martinez M.D. [id number] AST [Catalytic activity/Vol] 14 U/L Normal 0-50 U/L [facility] Comment on above: Order Comment: [facility] has implemented the eGFR calculation approach that does not have a coefficient for race that conforms to the NKF-ASN Task Force Recommendations. Performed By: #### 4 6126 #### LAB [address] [address] Moody Martinez M.D. [id number] Bilirubin [Mass/Vol] 0.3 mg/dL Normal 0.0-1.3 [facility] Comment on above: Order Comment: [facility] has implemented the eGFR calculation approach that does not have a coefficient for race that conforms to the NKF-ASN Task Force Recommendations. Performed By: #### 4 6126 #### LAB [address] [address] Moody Martinez M.D. [id number] Calcium [Mass/Vol] 8.7 mg/dL Normal 8.4-10.2 [facility] [place] [facility] Comment on above: Order Comment: [facility] has implemented the eGFR calculation approach that does not have a coefficient for race that conforms to the NKF-ASN Task Force Recommendations. Performed By: #### 4 6126 #### LAB [address], [place] [address] Moody Martinez M.D. [id number] Chloride [Moles/Vol] 99 mmol/L Normal 98-108 [facility] Comment on above: Order Comment: [facility] has implemented the eGFR calculation approach that does not have a coefficient for race that conforms to the NKF-ASN Task Force Recommendations. Performed By: #### 4 6126 #### LAB [address], [place] [address] Moody Martinez M.D. [id number] Creatinine [Mass/Vol] 2.60 mg/dL High 0.80-1.30 [facility] Comment on above: Order Comment: [facility] has implemented the eGFR calculation approach that does not have a coefficient for race that conforms to the NKF-ASN Task Force Recommendations. Performed By: #### 4 6126 #### LAB [address], [place] [address] Moody Martinez M.D. [id number] EGFR 24 mL/min/1.73 m2 Low >=60 [facility] Comment on above: Order Comment: [facility] has implemented the eGFR calculation approach that does not have a coefficient for race that conforms to the NKF-ASN Task Force Recommendations. Result Comment: Albin mated GFR was calculated using the 2020 CKD-EPI creatinine equation. Performed By: #### 4 6126 ####[facility] LAB [address], [place] [address] Moody Martinez M.D. [id number] Glucose [Mass/Vol] 467 mg/dL Off scale high 65-99 [facility] Comment on above: Order Comment: [facility] has implemented the eGFR calculation approach that does not have a coefficient for race that conforms to the NKF-ASN Task Force Recommendations. Performed By: #### 4 6126 #### LAB [address] [address] Moody Martinez M.D. [id number] HCO3 (Bld) [Moles/Vol] 17 mmol/L Low 21-32 [facility] Comment on above: Order Comment: [facility] has implemented the eGFR calculation approach that does not have a coefficient for race that conforms to the NKF-ASN Task Force Recommendations. Performed By: #### 4 6126 #### LAB [address] [address] Moody Martinez M.D. [id number] Potassium [Moles/Vol] 6.3 mmol/L Off scale high 3.5-5.1 [facility] Comment on above: Order Comment: [facility] has implemented the eGFR calculation approach that does not have a coefficient for race that conforms to the NKF-ASN Task Force Recommendations. Performed By: #### 4 6126 #### LAB [address] [address] Moody Martinez M.D. [id number] Protein [Mass/Vol] 5.6 g/dL Low 6.0-8.0 [facility] [place] [facility] Comment on above: Order Comment: [facility] has implemented the eGFR calculation approach that does not have a coefficient for race that conforms to the NKF-ASN Task Force Recommendations. Performed By: #### 4 6126 #### LAB [address] [address] Moody Martinez M.D. [id number] Sodium [Moles/Vol] 130 mmol/L Low 135-145 [facility] [place] [facility] Comment on above: Order Comment: [facility] has implemented the eGFR calculation approach that does not have a coefficient for race that conforms to the NKF-ASN Task Force Recommendations. Performed By: #### 4 6126 #### LAB [address] [address] Moody Martinez M.D. [id number] Urea nitrogen [Mass/Vol] 92 mg/dL High 8-25 [facility] Comment on above: Order Comment: [facility] has implemented the eGFR calculation approach that does not have a coefficient for race that conforms to the NKF-ASN Task Force Recommendations. Performed By: #### 4 6126 #### LAB [address], [place] [address] Moody Martinez M.D. [id number] Urea nitrogen/Creatinine [Mass ratio] 35.4 mg/mg High 10.0-20.0 [facility] Comment on above: Order Comment: [facility] has implemented the eGFR calculation approach that does not have a coefficient for race that conforms to the NKF-ASN Task Force Recommendations. Performed By: #### 4 6126 #### LAB [address], [place] [address] Moody Martinez M.D. [id number] CORONARY ANGIOGRAPHY 10-27 CORONARY ANGIOGRAPHY This is [...] significant gradient across the aortic valve. Normal [facility] CT CHEST WITHOUT CONTRASTon 10-27-2024 CT [...] the subcutaneous tissues of the chest wall. [employer] Workstation ID: [id number] Dictated by: KAHLIL VARGHESE on WedOct 27, 2024 1:25:27 PM EST Transcribed by: WARREN PRITCHARD on WedOct 27, 2024 1:31:49 PM EST Finalized by: KAHLIL VARGHESE on WedOct 27, 2024 3:01:00 PM EST Normal [facility] Comment on above: [...] the subcutaneous tissues of the chest wall. [employer] Workstation ID: [id number] [facility] EXAMINATION: CT CHEST WITHOUT CONTRAST [...] STRUCTURES: No aggressive bone lesions. Intact sternum. [employer] Kahlil Tyler, - 10/27/2024 EXAMINATION: CT CHEST [...] the subcutaneous tissues of the chest wall. [employer] Workstation ID: [id number] [facility] Radiology Study observation (narrative) [facility] Cardiac Catheterizationon Impression: Multivessel complex [...] no significant gradient across the aortic valve. [employer] CV [facility] Citrated TEG (Cardiac) with HeparinaseOrdered By: Burton Zendejas on 10-27-2024 (CFF-FLEV) Cit. Func.Fib.Estimated Func.Fibrinogen Level 381.4 mg/dL 278.0 - 581.0 mg/dL [facility] Clot angle TEG (Bld) [Angle] 73.2 deg 63.0 - 78.0 deg [facility] Clot formation TEG (Bld) [Time] 1.3 min 0.8 - 2.1 min [facility] Clotting time after addition of heparinase TEG (Bld) 7.6 min 4.3 - 8.3 min [facility] Clotting time.intrinsic coagulation system activated Rotational TEG (Bld) 16.4 min High 4.6 - 9.1 min [facility] Interpretation and review of laboratory results Abnormal [facility] Maximum clot firmness TEG (Bld) [Length] 50.9 mm Low 52.0 - 69.0 mm [facility] Maximum clot firmness TEG (Bld) [Length] 20.9 mm 15.0 - 32.0 mm [facility] Maximum clot firmness.extrinsic coagulation system activated Rotational TEG (Bld) [Length] 62.3 mm 52.0 - 70.0 mm [facility] Comprehensive metabolic 2000 panelOrdered By: Ya Izaguirre on 10-27-2024 Albumin [Mass/Vol] 3.4 g/dL 3.2 - 5.2 g/dL [facility] ALP [Catalytic activity/Vol] 86 U/L 40 - 150 U/L [facility] ALT [Catalytic activity/Vol] 13 U/L 0-50 U/L [facility] Anion gap [Moles/Vol] 20 mmol/L 10 - 2 0 mmol/L [facility] AST [Catalytic activity/Vol] 12 U/L 0-50 U/L [facility] Bilirubin [Mass/Vol] 0.3 mg/dL 0.0 - 1 .3 mg/dL [facility] Calcium [Mass/Vol] 8.4 mg/dL 8.4 - 10. 2 mg/dL [facility] Chloride [Moles/Vol] 99 mmol/L 98 - 10 8 mmol/L [facility] Creatinine [Mass/Vol] 2.55 mg/dL High 0.80 - 1.30 mg/dL [facility] GFR/1.73 sq M.predicted CKD-EPI (S/P/Bld) [Vol rate/Area] 25 Low - PINF [facility] Comment on above: Estimated GFR was ca lculated using the 2020 CKD-EPI creatinine equation. Glucose [Mass/Vol] 564 mg/dL Critically high 65 - 99 mg/d L [facility] HCO3 [Moles/Vol] 15 mmol/L Low 21 - 32 mmol/L [facility] Potassium [Moles/Vol] 5.9 mmol/L High 3.5 - 5.1 mmol/L [facility] Protein [Mass/Vol] 5.8 g/dL Low 6.0 - 8.0 g/dL [facility] Sodium [Moles/Vol] 128 mmol/L Low 135 - 145 mmol/L [facility] Urea nitrogen [Mass/Vol] 93 mg/dL High 8 - 25 mg/d L [facility] Urea nitrogen/Creatinine [Mass ratio] 36.5 mg/mg High 10.0 - 20.0 [facility] has implemented the eGFR calculation approach that does not have a coefficient for race that conforms to the NKF-ASN Task Force Recommendations. [facility] Comprehensive metabolic 2000 panelOrdered By: Rosalia March on 10-27-2024 Albumin [Mass/Vol] 3.5 g/dL 3.2 - 5.2 g/dL [facility] ALP [Catalytic activity/Vol] 92 U/L 40 - 150 U/L [facility] ALT [Catalytic activity/Vol] 21 U/L 0-50 U/L [facility] Anion gap [Moles/Vol] 20 mmol/L 10 - 2 0 mmol/L [facility] AST [Catalytic activity/Vol] 14 U/L 0-50 U/L [facility] Bilirubin [Mass/Vol] 0.3 mg/dL 0.0 - 1 .3 mg/dL [facility] Calcium [Mass/Vol] 8.7 mg/dL 8.4 - 10. 2 mg/dL [facility] Chloride [Moles/Vol] 99 mmol/L 98 - 10 8 mmol/L [facility] Creatinine [Mass/Vol] 2.6 mg/dL High 0.80 - 1.30 mg/dL [facility] GFR/1.73 sq M.predicted CKD-EPI (S/P/Bld) [Vol rate/Area] 24 Low - PINF [facility] Comment on above: Estimated GFR was ca lculated using the 2020 CKD-EPI creatinine equation. Glucose [Mass/Vol] 467 mg/dL Critically high 65 - 99 mg/d L [facility] HCO3 [Moles/Vol] 17 mmol/L Low 21 - 32 mmol/L [facility] Interpretation and review of laboratory results Abnormal [facility] Potassium [Moles/Vol] 6.3 mmol/L Critically high 3.5 - 5.1 mmol/L [facility] Protein [Mass/Vol] 5.6 g/dL Low 6.0 - 8.0 g/dL [facility] Sodium [Moles/Vol] 130 mmol/L Low 135 - 145 mmol/L [facility] Urea nitrogen [Mass/Vol] 92 mg/dL High 8 - 25 mg/d L [facility] Urea nitrogen/Creatinine [Mass ratio] 35.4 mg/mg High 10.0 - 20.0 [facility] has implemented the eGFR calculation approach that does not have a coefficient for race that conforms to the NKF-ASN Task Force Recommendations. [facility] ECHOCARDIOGRAM COMPLETEon ECHOCARDIOGRAM COMPLETE Patient Info Name: ENOC ARMANDO Age: 78 years : 1945 Gender: Male Ht: 170 cm Wt: 66 kg BSA: 1.77 m2 HR: 63 bpm BP: 148 / 55 mmHg Heart Rhythm: Sinus Arrhythmia Technical Quality: Fair Exam Date: 10/27/2024 1:22 PM Patient Status: Outpatient Newswriter: Jyoti Perez RDCS Exam Type: ECHOCARDIOGRAM COMPLETE Study Info Indications - Abnormal electrocardiogram [ECG] [EKG] Referring Physician: MARIE Arriaga; [id number] BMI: 22.71 kg/m2 Summary 1. Normal LV [...] Factors Hypertension: Yes Dyslipidemia: Yes Myocardial Infarction ([place]): No Congestive Heart Failure (CHF): Hx CHF [...] mmHg MV VTI 56 cm MV [employer] [place] 850 cm/s2 MV PHT 90 ms MV [...] Average 7. (more content not included)... Normal [facility] Echo completeOrdered By: Fauzia Garay on 10-27-2024 Aortic valve area 3.37360 cm [facility] Work Phone: [phone] mean gradient 4 mmHg [facility] Work Phone: [phone] AV peak gradient 7.1824 mmHg [facility] Work Phone: [phone] 70.2889 % [facility] Work Phone: [phone] [facility] Work Phone: Echo completeon 10-27-2024 Patient Info Name: ENOC ARMANDO Age: 78 years : 1945 Gender: Male Ht: 170 cm Wt: 66 kg BSA: 1.77 m2 HR: 63 bpm BP: 148 / 55 mmHg Heart Rhythm: Sinus Arrhythmia Technical Quality: Fair Exam Date: 10/27/2024 1:22 PM Patient Status: Outpatient Newswriter: Jyoti Perez RDCS Exam Type: ECHOCARDIOGRAM COMPLETE Study Info Indications - Abnormal electrocardiogram [ECG] [EKG] Referring Physician: MARIE Arriaga; [id number] BMI: 22.71 kg/m2 Summary 1. Normal LV [...] Factors Hypertension: Yes Dyslipidemia: Yes Myocardial Infarction ([place]): No Congestive Heart Failure (CHF): Hx CHF [...] Date: 10/27/2024 1:22 PM Patient Status: Outpatient Newswriter: Jyoti Perez [facility] Exam Type: ECHOCARDIOGRAM COMPLETE Study Info Indications - Abnormal electrocardiogram [ECG] [EKG] Referring Physician: MARIE Arriaga; [id number] BMI: 22.71 kg/m2 Summary 1. Normal LV [...] Factors Hypertension: Yes Dyslipidemia: Yes Myocardial Infarction ([place]): No Congestive Heart Failure (CHF): Hx CHF [...] mmHg MV VTI 56 cm MV [employer] [place] 850 cm/s2 MV PHT 90 ms MV [...] Velocity 6.3 cm/ (more content not included)... [facility] Glucose (d) [Mass/Vol]on 12-28-2023 Glucose [Mass/Vol] mg/dL Critically high 65 - 99 mg/d L [facility] Interpretation and review of laboratory results Abnormal [facility] Critical result acted upon time of test. Test performed at bedside. [facility] Glucose [Mass/Vol] mg/dL Critically high 65 - 99 mg/d L [facility] Interpretation and review of laboratory results Abnormal [facility] Critical result acted upon time of test. Test performed at bedside. [facility] Glucose [Mass/Vol] 369 mg/dL High 65 - 99 mg/dL [facility] Interpretation and review of laboratory results Abnormal [facility] Glucose [Mass/Vol] 381 mg/dL High 65 - 99 mg/dL [facility] Interpretation and review of laboratory results Abnormal [facility] Glucose [Mass/Vol] 385 mg/dL High 65 - 99 mg/dL [facility] Interpretation and review of laboratory results Abnormal [facility] Glucose [Mass/Vol] 498 mg/dL Critically high 65 - 99 mg/d L [facility] Interpretation and review of laboratory results Abnormal [facility] Critical result acted upon time of test. Test performed at bedside. [facility] Glucose [Mass/Vol] 279 mg/dL High 65 - 99 mg/dL [facility] Interpretation and review of laboratory results Abnormal [facility] HEMOGLOBIN A1Con 10-27-2024 Glucose [Mass/Vol] 237 mg/dL High 74-114 [facility] [place] [facility] Comment on above: Performed By: #### 4 8202 ####[facility] [address] [address] Moody Martinez M.D. [id number] HbA1c (Bld) [Mass fraction] 9.9 % High 4.2-5.6 [facility] Comment on above: Performed By: #### 4 8202 ####[facility] [address] [address] Moody Martinez M.D. [id number] Glucose [Mass/Vol] 232 mg/dL High 74-114 [facility] [place] [facility] Comment on above: Performed By: #### 4 8202 ####[facility] [address] [address] Moody Martinez M.D. [id number] HbA1c (Bld) [Mass fraction] 9.7 % High 4.2-5.6 [facility] Comment on above: Performed By: #### 4 8202 #### LAB [address] [address] Moody Martinez M.D. [id number] HbA1c (Bld) [Mass fraction]o n 10-27-2024 Average glucose Estimated from glycated hemoglobin (Bld) [Mass/Vol] 232 mg/dL High 74 - 114 mg/dL [facility] Interpretation and review of laboratory results Abnormal [facility] Hemoglobin A1con 10-27-2024 HbA1c (Bld) [Mass fraction] 9.7 % High 4.2 - 5.6 % [facility] INR Coag (PPP) [Relative concha e]on 10-27-2024 Interpretation and review of laboratory results Normal [facility] PT Coag (PPP) [Time] 14.3 s [facility] During the induction phase of oral anticoagulation, the INR may not reflect the anticoagulation status of the patient. Therapeutic ranges for INR's are: Most clinical situations: INR 2.0-3.0 Mechanical Prosthetic Valve: INR 2.5-3.5 Critical: INR >5.0 [facility] LACTIC ACID, PLASMAon 2023 LACTIC ACID, PLASMA 1.6 mmol/L Normal 0.6-2.0 [facility] Comment on above: Performed By: #### 4 6932 #### [facility] LAB [address], [place] [address] Moody Martinez M.D. [id number] LIPASEon 10-27-2024 Lipase [Catalytic activity/Vol] 56 U/L Normal 15-65 [facility] Comment on above: Performed By: #### 4 6086 #### LAB [address], [place] [address] Moody Martinez M.D. [id number] Lactate [Moles/Vol]on 2023 Interpretation and review of laboratory results Normal [facility] Lactic Acid, Plasmaon 2023 Lactate [Moles/Vol] 1.6 mmol/L 0.6 - 2. 0 mmol/L [facility] Lipaseon 10-27-2024 Lipase [Catalytic activity/Vol] 56 U/L 15 - 65 U/L [facility] MAGNESIUM LEVELon 10-27-2024 Magnesium [Mass/Vol] 2.6 mg/dL High 1.6-2.4 [facility] Comment on above: Performed By: #### 4 6109 #### LAB [address] [place], [place] [address] Moody Martinez M.D. [id number] Magnesium [Mass/Vol] 2.5 mg/dL High 1.6-2.4 [facility] Comment on above: Performed By: #### 4 6109 #### LAB [address] [address] Moody Martinez M.D. [id number] Magnesium Levelon 10-27-2024 Magnesium [Mass/Vol] 2.5 mg/dL High 1.6 - 2 .4 mg/dL [facility] No Panel InformationOrdered By: Ya Izaguirre on 10-27-2024 Interpretation and review of laboratory results Abnormal [facility] No Panel Informationon 10-27 Interpretation and review of laboratory results Normal [facility] PHOSPHORUSon 10-27-2024 Phosphate [Mass/Vol] 4.4 mg/dL High 2.3-3.7 [facility] Comment on above: Performed By: #### 4 6299 #### LAB [address] [address] Moody Martinez M.D. [id number] Phosphate [Mass/Vol] 5.2 mg/dL High 2.3-3.7 [facility] Comment on above: Performed By: #### 4 4014 #### LAB [address] [address] Moody Martinez M.D. [id number] POC ARTERIAL BLOOD GAS PANEL -[facility] 10-27-2024 [id number] 19.6 mm Hg [facility] Comment on above: Performed By: #### 4 [id number] ####[facility] [address] [address] Moody Martinez M.D. [id number] BASE EXCESS, ARTERIAL -7.5 Low -2.0-2.0 [facility] Comment on above: Performed By: #### 4 8716 ####[facility] [address] [address] Moody Martinez M.D. [id number] FIO2 21 Normal [facility] Comment on above: Performed By: #### 4 [id number] ####[facility] [address] [address] Moody Martinez M.D. [id number] HCO3 (Bld) [Moles/Vol] 17.5 mmol/L Low 22.0-26.0 [facility] Comment on above: Performed By: #### 4 [id number] ####[facility] [address] [address] Moody Martinez M.D. [id number] Hematocrit (Bld) [Volume fraction] 30.0 % Low 41.0-53.0 [facility] Comment on above: Performed By: #### 4 [id number] ####[facility] [address] [address] Moody Martinez M.D. [id number] Hemoglobin (Bld) [Mass/Vol] 9.8 g/dL Low 13.5-17.5 [facility] Comment on above: Performed By: #### 4 8716 ####[facility] [address] [address] Moody Martinez M.D. [id number] Oxygen saturation in Blood 97.3 % Normal 92.0-99.0 [facility] Comment on above: Performed By: #### 4 8716 #### LAB [address] [address] Moody Maritnez M.D. [id number] PCO2 ARTERIAL 32.9 mm Hg Low 35.0-45.0 [facility] Comment on above: Performed By: #### 4 8716 ####[facility] [address] [address] Moody Martinez M.D. [id number] PH ARTERIAL 7.33 Low 7.35-7.45 [facility] Comment on above: Performed By: #### 4 8716 #### LAB [address] [address] Moody Martinez M.D. [id number] PO2 ARTERIAL 85 mm Hg Normal 75-85 [facility] Comment on above: Performed By: #### 4 8716 #### LAB [address] [address] Moody Martinez M.D. [id number] SPECIMEN SOURCE RADIANCE Radial, left Normal [facility] Comment on above: Performed By: #### 4 8716 #### LAB [address] [address] Moody Martinez M.D. [id number] POC Arterial Blood Gas Panel -Pulmon 10-27-2024 Alveolar-arterial oxygen Partial pressure difference 19.6 mm Hg [facility] Base excess Calc (Bld) [Moles/Vol] -7.5000 mmol/L Low -2.0 - 2.0 [facility] CO2 (Bld) [Partial pressure] 32.9 mm[Hg] Low [facility] Hematocrit (BldA) [Volume fraction] 30 % Low 41.0 - 53.0 % [facility] Inhaled oxygen concentration 21 % [facility] Interpretation and review of laboratory results Abnormal [facility] Oxygen (Bld) [Partial pressure] 85 mm[Hg] [facility] pH (Bld) 7.33 [pH] Low 7.35 - 7.45 [facility] Specimen source Nom (Unsp spec) Radial, left [facility] POC GLUCOSE - [facility] 10-27-2 024 Glucose [Mass/Vol] 443 mg/dL Off scale [address] Comment on above: Order Comment: Criti christian result acted upon time of test. Test performed at bedside. Performed By: #### 4 6967 #### LAB [address] [address] Moody Martinez M.D. [id number] POC GLUCOSE > Off scale [address] Comment on above: Order Comment: Criti christian result acted upon time of test. Test performed at bedside. Performed By: #### 4 6909 ####[facility] [address] [address] Moody Martinez M.D. [id number] POC GLUCOSE > Off scale [address] Comment on above: Order Comment: Criti christian result acted upon time of test. Test performed at bedside. Performed By: #### 4 3504 #### LAB [address] [address] Moody Martinez M.D. [id number] POC GLUCOSE > Off scale [address] Comment on above: Order Comment: Criti christian result acted upon time of test. Test performed at bedside. Performed By: #### 4 6982 #### LAB [address] [address] Moody Martinez M.D. [id number] Glucose [Mass/Vol] 369 mg/dL [address] Comment on above: Performed By: #### 4 6954 #### LAB [address] [address] Moody Martinez M.D. [id number] Glucose [Mass/Vol] 381 mg/dL [address] Comment on above: Performed By: #### 4 6956 #### LAB [address] [address] Moody Martinez M.D. [id number] Glucose [Mass/Vol] 385 mg/dL [address] Comment on above: Performed By: #### 4 6932 #### LAB [address] [address] Moody Martinez M.D. [id number] Glucose [Mass/Vol] 498 mg/dL Off scale high 65-99 [facility] Comment on above: Order Comment: Criti christian result acted upon time of test. Test performed at bedside. Performed By: #### 4 6932 #### LAB [address] [address] Moody Martinez M.D. [id number] Glucose [Mass/Vol] 279 mg/dL High 65-99 [facility] [place] [facility] Comment on above: Performed By: #### L [id number] #### LAB [address] [address] Moody Martinez M.D. [id number] POTASSIUM LEVELon 10-27-2024 Potassium [Moles/Vol] 3.4 mmol/L Low 3.5-5.1 [facility] Comment on above: Performed By: #### 4 6351 #### LAB [address] [address] Moody Martinez M.D. [id number] PREALBUMINon 10-27-2024 Prealbumin [Mass/Vol] 15.9 mg/dL Low 20.0-40.0 [facility] Comment on above: Performed By: #### 4 4014 #### LAB [address] [address] Moody Martinez M.D. [id number] PT/INRon 10-27-2024 INR Coag (PPP) [Relative time] 1.1 {INR} 0.8 - 1.1 [facility] INR Coag (PPP) [Relative time] 1.1 {INR} Normal 0.8-1.1 [facility] Comment on above: Order Comment: Janet good the induction phase of oral anticoagulation, the INR may not reflect the anticoagulation status of the patient. Therapeutic ranges for INR's are:Most clinical situations: INR 2.0-3.0Mechanical Prosthetic Valve: INR 2.5-3.5Critical: INR >5.0 Performed By: #### 4 6932 #### LAB [address] [place], [place] [address] Moody Martinez M.D. [id number] PT Coag (PPP) [Time] 14.3 s Normal 11.8-14.3 [facility] Comment on above: Order Comment: Janet good the induction phase of oral anticoagulation, the INR may not reflect the anticoagulation status of the patient. Therapeutic ranges for INR's are:Most clinical situations: INR 2.0-3.0Mechanical Prosthetic Valve: INR 2.5-3.5Critical: INR >5.0 Performed By: #### 4 6932 #### LAB [address] [place], [place] [address] Moody Martinez M.D. [id number] Phosphoruson 10-27-2024 Phosphate [Mass/Vol] 5.2 mg/dL High 2.3 - 3 .7 mg/dL [facility] Potassium Levelon 10-27-2024 Potassium [Moles/Vol] 3.4 mmol/L Low 3.5 - 5.1 mmol/L [facility] Potassium [Moles/Vol]on 10-02 Interpretation and review of laboratory results Abnormal [facility] Prealbuminon 10-27-2024 Prealbumin [Mass/Vol] 15.9 mg/dL Low 20.0 - 40.0 mg/dL [facility] Prealbumin [Mass/Vol]on 10-02 Interpretation and review of laboratory results Abnormal [facility] Segmental Doppler Lower Extr emity Arterialon 10-27-2024 Patient Info Name: ENOC ARMANDO Age: 78 years : 1945 Gender: Male Exam Date: 10/27/2024 9:50 AM Patient Status: Outpatient Family Dinner Service Specialist: Ya Jacob Referring Physician: ZOILA POLLARD; Indications I73.9 - Peripheral vascular disease, unspecified Procedure Description 31453 Limited bilateral noninvasive physiologic studies of upper [...] JO-ANN Nguyen DO on 10/27/2024 01:14 PM [facility], DO - 10/27/2024 Patient Info Name: ENOC ARMANDO Age: 78 years : 1945 Gender: Male Exam Date: 10/27/2024 9:50 AM Patient Status: Outpatient Family Dinner Service Specialist: Ya Jacob Yadira Referring Physician: ZOILA POLLARD; Indications I73.9 - Peripheral vascular disease, unspecified Procedure Description 35743 Limited bilateral noninvasive physiologic studies of upper [...] JO-ANN Nguyen DO on 10/27/2024 01:14 PM [facility] T4, FREEon 10-27-2024 Free T4 [Mass/Vol] 1.3 ng/dL Normal 0.7-1.7 [facility] [place] [facility] Comment on above: Performed By: #### 4 6567 #### LAB [address] [address] Moody Martinez M.D. [id number] T4, Freeon 10-27-2024 Free T4 [Mass/Vol] 1.3 ng/dL 0.7 - 1.7 ng/dL [facility] TEG PLATELET MAPPING ([facility])on 10-27-2024 (AA-%AGGREGATION) AA PERCENT AGGREGATION 12.1 % Low 89.0-100.0 [facility] Comment on above: Performed By: #### L [id number] #### LAB [address] [address] Moody Martinez M.D. [id number] (AA-%INHIBITION) AA PERCENT INHIBITION 87.9 % High 0.0-11.0 [facility] Comment on above: Performed By: #### L [id number] ####[facility] [address] [address] Moody Martinez M.D. [id number] (AA-MA) AA MAXIMUM AMPLITUDE 14.7 mm Low 51.0-71.0 [facility] Comment on above: Performed By: #### L [id number] ####[facility] [address] [address] Moody Martinez M.D. [id number] (ACTF-MA) ACTIVATOR F MAXIMUM AMPLITUDE 7.8 mm Normal 2.0-19.0 [facility] Comment on above: Performed By: #### L [id number] ####[facility] [address] [address] Moody Martinez M.D. [id number] (ADP-%AGGREGATION) ADP PERCENT AGGREGATION 61.2 % Low 83.0-100.0 [facility] Comment on above: Performed By: #### L [id number] ####[facility] [address] [id number] Moody Martinez M.D. [id number] (ADP-%INHIBITION) ADP PERCENT INHIBITION 38.8 % High 0.0-17.0 [facility] Comment on above: Performed By: #### L [id number] #### LAB [address] [address] Moody Martinez M.D. [id number] (ADP-MA) ADP MAXIMUM AMPLITUDE 42.7 mm Low 45.0-69.0 [facility] Comment on above: Performed By: #### L [id number] #### LAB [address] [address] Moody Martinez M.D. [id number] (HKH-MA) KAOLIN WITH HEPARINASE MAXIMUM AMPLITUDE 64.8 mm Normal 53.0-68.0 [facility] Comment on above: Performed By: #### L [id number] #### LAB [address] [address] Moody Martinez M.D. [id number] TEG Platelet Mapping (Cardia c)on 10-27-2024 (AA-%Aggregation) AA Percent Aggregation 12.1 % Low 89.0 - 100.0 % [facility] (AA-%Inhibition) AA Percent Inhibition 87.9 % High 0.0 - 11.0 % [facility] (ADP-% Aggregation) ADP Percent Aggregation 61.2 % Low 83.0 - 100.0 % [facility] (ADP-%Inhibition) ADP PERCENT INHIBITION 38.8 % High 0.0 - 17.0 % [facility] Interpretation and review of laboratory results Abnormal [facility] Maximum amplitude AA induced Resonance TEG (Bld) [Length] 14.7 mm Low 51.0 - 71.0 mm [facility] Maximum amplitude activator F induced Resonance TEG (Bld) [Length] 7.8 mm 2.0 - 19.0 mm [facility] Maximum amplitude ADP induced Resonance TEG (Bld) [Length] 42.7 mm Low 45.0 - 69.0 mm [facility] Maximum amplitude kaolin induced after addition of heparinase Resonance TEG (Bld) [Length] 64.8 mm 53.0 - 68.0 mm [facility] TSHon 10-27-2024 TSH Qn 0.48 m[IU]/L Normal 0.27-4.20 [facility] Comment on above: Performed By: #### 4 6932 #### LAB [address] [address] Moody Martinez M.D. 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 [id number] pH (U) 5.0 [pH] Normal 5.0-7.0 [facility] Comment on above: Order Comment: Injur y/Trauma or Illness?:Illness/Other How long have you had these symptoms (acute/chronic)?:Acute Reason for exam?:cross clamp of aorta for CPB Type of Exam?:Initial Additional signs and symptoms?:cp Performed By: #### 4 6629 #### LAB [address] [address] Moody Martinez M.D. 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 [id number] URINE AEROBIC CULTUREon 10-02 URINE AEROBIC CULTURE URINE CULTURE No Growth (<1,000 CFU/mL) Normal [facility] Comment on above: Order Comment: If PO SITIVE, send for sensitivities per cardiac surgeon Performed By: #### 4 4053 ####[facility] [address] [place] [address] Jose Cisse M.D. [id number] US DOPPLER CAROTIDon 024 US DOPPLER CAROTID Patient Info Name: ENOC ARMANDO Age: 78 years : 1945 Gender: Male Exam Date: 10/27/2024 10:32 AM Patient Status: Outpatient Family Dinner Service Specialist: Lori Fagan RDMS (AB), RVS Referring Physician: MARIE Arriaga; Indications Z01.810 - Encounter for preprocedural cardiovascular examination I65.23 - Occlusion and stenosis of bilateral carotid arteries Procedure Description 40020 Duplex examination using B-mode, color and spectral [...] Results c (more content not included)... Normal [facility] Comment on above: Order Comment: Dr. Sudha Parker to read US DOPPLER SEGMENTAL ARTERIA L LEGS BILATERALon 10-27-2024 US DOPPLER SEGMENTAL ARTERIAL LEGS BILATERAL Patient Info Name: ENOC ARMANDO Age: 78 years : 1945 Gender: Male Exam Date: 10/27/2024 9:50 AM Patient Status: Outpatient Family Dinner Service Specialist: Ya Jacob Referring Physician: ZOILA POLLARD; Indications I73.9 - Peripheral vascular disease, unspecified Procedure Description 43406 Limited bilateral noninvasive physiologic studies of upper [...] JO-ANN Nguyen DO on 10/27/2024 01:14 PM [facility] US RADIAL ARTERY MAPPING KARIN ATERALon 10-27-2024 US RADIAL ARTERY MAPPING BILATERAL Patient Info Name: ENOC ARMANDO Age: 78 years : 1945 Gender: Male Exam Date: 10/27/2024 11:23 AM Patient Status: Outpatient Family Dinner Service Specialist: Lori Fagan RDMS (AB), RVS Referring Physician: MARIE Arriaga; Indications - possible radial artery harvest Z01.810 - Encounter for preprocedural cardiovascular examination Procedure Description 83965 Duplex scan of upper extremity arteries or [...] Parker MD on 10/27/2024 11:50 AM [facility] Radial Artery Mapping Karin bone 10-27-2024 Patient Info Name: ENOC ARMANDO Age: 78 years : 1945 Gender: Male Exam Date: 10/27/2024 11:23 AM Patient Status: Outpatient Family Dinner Service Specialist: Lori Fagan RDMS (AB), RVS Referring Physician: MARIE Arriaga; Indications - possible radial artery harvest Z01.810 - Encounter for preprocedural cardiovascular examination Procedure Description 86727 Duplex scan of upper extremity arteries or [...] Date: 10/27/2024 11:23 AM Patient Status: Outpatient Family Dinner Service Specialist: Lroi Fagan RDMS (AB), RVS Referring Physician: MARIE Arriaga; Indications - possible radial artery harvest Z01.810 - Encounter for preprocedural cardiovascular examination Procedure Description 62108 Duplex scan of upper extremity arteries or [...] Kristy Parker MD on 10/27/2024 11:50 AM [facility] SAPHENOUS VEIN MAPon 12-2 US SAPHENOUS VEIN MAP Patient Info Name: ENOC ARMANDO Age: 78 years : 1945 Gender: Male Exam Date: 10/27/2024 11:13 AM Patient Status: Outpatient Family Dinner Service Specialist: Lori Fagan RDMS (AB), RVS Referring Physician: MARIE Arriaga; Indications - GSV harvest Z01.810 - Encounter for preprocedural cardiovascular examination Procedure Description 03601 Duplex examination using B-mode, color and spectral [...] Kristy Parker MD on 10/27/2024 11:57 AM [facility] Ultrasound Saphenous vein vivi georges 10-27-2024 Patient Info Name: ENOC ARMANDO Age: 78 years : 1945 Gender: Male Exam Date: 10/27/2024 11:13 AM Patient Status: Outpatient Family Dinner Service Specialist: Lori Fagan RDMS (AB), RVS Referring Physician: MARIE Arriaga; Indications - GSV harvest Z01.810 - Encounter for preprocedural cardiovascular examination Procedure Description 54049 Duplex examination using B-mode, color and spectral [...] Kristy Parker MD on 10/27/2024 11:57 AM [employer] CV Kristy Parker MD - 10/27/2024 Patient Info Name: ENOC ARMANDO Age: 78 years : 1945 Gender: Male Exam Date: 10/27/2024 11:13 AM Patient Status: Outpatient Family Dinner Service Specialist: Lori Fagan RDMS (AB), RVS Referring Physician: MARIE Arriaga; Indications - GSV harvest Z01.810 - Encounter for preprocedural cardiovascular examination Procedure Description 68180 Duplex examination using B-mode, color and spectral [...] Kristy Parker MD on 10/27/2024 11:57 AM [facility] Ultrasound doppler carotidon 10-27-2024 Patient Info Name: ENOC ARMANDO Age: 78 years : 1945 Gender: Male Exam Date: 10/27/2024 10:32 AM Patient Status: Outpatient Family Dinner Service Specialist: Lori Fagan RDMS (AB), RVS Referring Physician: MARIE Arriaga; Indications Z01.810 - Encounter for preprocedural cardiovascular examination I65.23 - Occlusion and stenosis of bilateral carotid arteries Procedure Description 45416 Duplex examination using B-mode, color and spectral [...] Date: 10/27/2024 10:32 AM Patient Status: Outpatient Family Dinner Service Specialist: Lori Fagan RDMS (AB), RVS Referring Physician: MARIE Arriaga; Indications Z01.810 - Encounter for preprocedural cardiovascular examination I65.23 - Occlusion and stenosis of bilateral carotid arteries Procedure Description 99014 Duplex examination using B-mode, color and spectral [...] Patient has a (more content not included)... [facility] Urinalysison 10-27-2024 Bacteria Auto Ql (U) Rare Abnormal None Se en /hpf [facility] Bilirubin Ql (U) Negative Negative [facility] Clarity Refractometry automated (U) Clear Clear [facility] Color (U) Colorless Colorless, Yellow [facility] Epithelial cells.squamous Auto (Urine sed) [#/Area] [facility]th Glucose Auto test strip (U) [Mass/Vol] 150 mg/dL Abnormal Negative, >=1000 [facility] Hemoglobin Auto test strip Ql (U) Negative Negative [facility] Hyaline casts Auto (Urine sed) [#/Area] 0-2 [facility] Interpretation and review of laboratory results Abnormal [facility] Ketones (U) [Mass/Vol] Negative Negat frank mg/dL [facility] Leukocyte esterase Auto test strip Ql (U) Negative Negative [facility] Mucus Auto (Urine sed) [#/Area] Rare None Seen, Rare /lpf [facility] Nitrite Auto test strip Ql (U) Negative Negative [facility] pH (U) 5 [pH] 5.0 - 7.0 [facility] Protein (U) [Mass/Vol] Negative Negat frank mg/dL [facility] RBC Auto (Urine sed) [#/Area] 1 [facility] Specific gravity (U) [Rel density] 1.017 1.005 - 1.025 [facility] Urobilinogen (U) [Mass/Vol] mg/dL NINF - 2.0 mg/dL [facility] WBC Auto (Urine sed) [#/Area] 1 [facility] Microscopic examination is performed on all urinalysis samples and only positive findings are reported. The test for blood on the chemical analytic portion of urinalysis may also be positive due to hemoglobinuria and myoglobinuria and if red blood cells are present they are quantified by microscopic examination. [facility] XR CHEST AP/PA AND LATon XR CHEST [...] WedOct 27, 2024 3:01:09 PM EST Normal [facility] Comment on above: Order Comment: Injur y/Trauma or Illness?:Illness/OtherHow long have you had these symptoms (acute/chronic)?:AcuteReason for exam?:pre opHistory of cancer?:.Surgeries, chemotherapy, or radiation?:cardiac catheterizationType of Exam?:InitialAdditional signs and symptoms?:. XR Chest PA and Lateral and AP lateral-decubituson 10-27-2024 Mild bilateral lower lung atelectasis. JAR/trn Workstation ID: [id number] [employer] RIS EXAMINATION: XR CHEST AP/PA AND LAT [...] atelectasis. No pneumothorax or sizable pleural effusion. [employer] RIS Kahlil Varghese, DO - 10/27/2024 EXAMINATION: [...] lower lung atelectasis. JAR/trn Workstation ID: [id number] [facility] Radiology Study observation (narrative) [facility] XR Chest PA and Lateral and AP lateral-decubitusOrdered By: Kahlil Varghese on 10-27-2024 [facility] Work Phone: aPTT Coag (Bld) [Time]on Interpretation and review of laboratory results Abnormal [facility] Therapeutic range for APTT's is 68 - 104 seconds [facility] BASIC METABOLIC PANELon 10-01 Calcium [Mass/Vol] 8.9 mg/dL Normal 8.6-10.3 [facility] Comment on above: Order Comment: FASTI NG:UNKNOWN FASTING: UNKNOWN Performed By: #### 6 399, 71523 #### [facility] [address], [address] [place] [address] Customer Care Representative: Jadon Velez MD Chloride [Moles/Vol] 106 mmol/L Normal 98-110 [facility] Comment on above: Order Comment: FASTI NG:UNKNOWN FASTING: UNKNOWN Performed By: #### 6 399, 35546 #### [facility] [address], [address] [place] [address] Customer Care Representative: Jadon Velez MD CO2 [Moles/Vol] 22 mmol/L Normal 20-32 [facility] Comment on above: Order Comment: FASTI NG:UNKNOWN FASTING: UNKNOWN Performed By: #### 6 399, 42365 #### [facility] [address], [address] [place] [address] Customer Care Representative: Jadon Velez MD Creatinine [Mass/Vol] 2.36 mg/dL High 0.70-1.22 [facility] Comment on above: Order Comment: FASTI NG:UNKNOWN FASTING: UNKNOWN Performed By: #### 6 399, 86520 #### [facility] [address], [address] [place] [address] Customer Care Representative: Jadon Velez MD GFR/1.73 sq M.predicted among non-blacks MDRD (S/P/Bld) [Vol rate/Area] 27 mL/min/{1.73_m2} Low > OR = 60 [facility] Comment on above: Order Comment: FASTI NG:UNKNOWN FASTING: UNKNOWN Performed By: #### 6 399, 60130 #### [facility] [address], [address] [place] [address] Customer Care Representative: Jadon Velez MD Glucose [Mass/Vol] 316 mg/dL High 65-99 [facility] Comment on above: Order Comment: FASTI NG:UNKNOWN FASTING: UNKNOWN Result Comment: Fasting reference interval For someone without known diabetes, a glucose value >125 mg/dL indicates that they may have diabetes and this should be confirmed with a follow-up test. Performed By: #### 6 399, 56404 #### [facility] [address], [address] [place] [address] Customer Care Representative: Jadon Velez MD Potassium [Moles/Vol] 5.6 mmol/L High 3.5-5.3 [facility] [employer] Comment on above: Order Comment: FASTI NG:UNKNOWN FASTING: UNKNOWN Performed By: #### 6 399, 29828 #### [facility] [address], [address] [place] [address] Customer Care Representative: Jadon Velez MD Sodium [Moles/Vol] 137 mmol/L Normal 135-146 [facility] Comment on above: Order Comment: FASTI NG:UNKNOWN FASTING: UNKNOWN Performed By: #### 6 399, 45026 #### [facility] [address], [address] [place] [address] Customer Care Representative: Jadon Velez MD Urea nitrogen [Mass/Vol] 66 mg/dL High 7-25 [facility] Comment on above: Order Comment: FASTI NG:UNKNOWN FASTING: UNKNOWN Performed By: #### 6 399, 75082 #### [facility] [address], [address] [place] [address] Customer Care Representative: Jadon Velez MD Urea nitrogen/Creatinine [Mass ratio] 28 mg/mg High 6-22 [facility] Comment on above: Order Comment: FASTI NG:UNKNOWN FASTING: UNKNOWN Performed By: #### 6 399, 86352 #### [facility] of [place] [address] Customer Care Representative: Jadon eVlez MD CBC (INCLUDES DIFF/PLT)on Basophils (Bld) [#/Vol] 0.213 10*3/uL High 0-200 [facility] Comment on above: Performed By: #### 6 399, 24719 #### [facility] of [address], [address] [place] [address] Customer Care Representative: Jadon Velez MD Basophils/100 WBC (Bld) 2.6 % Normal [facility] Comment on above: Performed By: #### 6 399, 06295 #### [facility] of [place] [address] Customer Care Representative: Jadon Velez MD Eosinophils (Bld) [#/Vol] 0.5 10*3/uL Normal 15-500 [facility] Comment on above: Performed By: #### 6 399, 59793 #### [facility] of [place] [address] Customer Care Representative: Jadon Velez MD Eosinophils/100 WBC (Bld) 6.1 % Normal [facility] Comment on above: Performed By: #### 6 399, 21933 #### [facility] of [place] [address] Customer Care Representative: Jadon Velez MD Erythrocyte distribution width (RBC) [Ratio] 12.9 % Normal 11.0-15.0 [facility] Comment on above: Performed By: #### 6 399, 58335 #### [facility] [place] [address] Customer Care Representative: Jadon Velez MD Hematocrit (Bld) [Volume fraction] 33.8 % Low 38.5-50.0 [facility] Comment on above: Performed By: #### 6 399, 72747 #### [facility] of [place] [address] Customer Care Representative: Jadon Velez MD Hemoglobin (Bld) [Mass/Vol] 10.9 g/dL Low 13.2-17.1 [facility] Comment on above: Performed By: #### 6 399, 84869 #### [facility] [place] [address] Customer Care Representative: Jadon Velez MD Lymphocytes (Bld) [#/Vol] 2.28 10*3/uL Normal 850-3900 [facility] Comment on above: Performed By: #### 6 399, 04360 #### [facility] [place] [address] Customer Care Representative: Jadon Velez MD Lymphocytes/100 WBC (Bld) 27.8 % Normal [facility] Comment on above: Performed By: #### 6 399, 84548 #### [facility] [place] [address] Customer Care Representative: Jadon Velez MD MCH (RBC) [Entitic mass] 30.9 pg Normal 27.0-33.0 [facility] Comment on above: Performed By: #### 6 399, 94482 #### [facility] [place] [address] Customer Care Representative: Jadon Velez MD MCHC (RBC) [Mass/Vol] 32.2 g/dL Normal 32.0-36.0 [facility] Comment on above: Result Comment: For adults, a slight decrease in the calculated MCHC value (in the range of 30 to 32 g/dL) is most likely not clinically significant; however, it should be interpreted with caution in correlation with other red cell parameters and the patient's clinical condition. Performed By: #### 6 399, 57717 #### [facility] [place] [address] Customer Care Representative: Jadon Velez MD MCV (RBC) [Entitic vol] 95.8 fL Normal 80.0-100.0 [facility] Comment on above: Performed By: #### 6 399, 67151 #### [facility] [place] [address] Customer Care Representative: Jadon Velez MD Monocytes (Bld) [#/Vol] 0.631 10*3/uL Normal 200-950 [facility] Comment on above: Performed By: #### 6 399, 97951 #### [facility] of [address], [address] [place] [address] Customer Care Representative: Jadon Velez MD Monocytes/100 WBC (Bld) 7.7 % Normal [facility] Comment on above: Performed By: #### 6 399, 00022 #### [facility] [place] [address] Customer Care Representative: Jadon Velez MD Neutrophils (Bld) [#/Vol] 4.576 10*3/uL Normal 1500-78 00 [facility] Comment on above: Performed By: #### 6 399, 77089 #### [facility] [place] [address] Customer Care Representative: Jadon Velez MD Neutrophils/100 WBC (Bld) 55.8 % Normal [facility] Comment on above: Performed By: #### 6 399, 87861 #### [facility] [place] [address] Customer Care Representative: Jadon Velez MD Platelet mean volume (Bld) [Entitic vol] 11.5 fL Normal 7.5-12.5 [facility] Comment on above: Performed By: #### 6 399, 44113 #### [facility] [place] [address] Customer Care Representative: Jadon Velez MD Platelets (Bld) [#/Vol] 289 10*3/uL Normal 140-400 [facility] Comment on above: Performed By: #### 6 399, 81131 #### [facility] [place] [address] Customer Care Representative: Jadon Velez MD RBC (Bld) [#/Vol] 3.53 10*6/uL Low 4.20-5.80 [facility] Comment on above: Performed By: #### 6 399, 09212 #### [facility] of [facility] [address], [address] [place] [address] Customer Care Representative: Jadon Velez MD WBC (Bld) [#/Vol] 8.2 10*3/uL Normal 3.8-10.8 [facility] Comment on above: Performed By: #### 6 399, 07700 #### [facility] [address], [address] [place] [address] Customer Care Representative: Jadon Velez MD Lipid Profileon 09-21-2024 Cholesterol [Mass/Vol] 148 mg/dL Normal [address] [facility] Comment on above: Result Comment: <200 mg/dL Desirable 200-240 mg/dL Borderline >240 mg/dL High Risk Performed By: #### L 500.4100 ####[facility] [address] [facility] [address] Cholesterol in HDL [Mass/Vol] 49 mg/dL Normal [facility] Comment on above: Result Comment: The drugs N-Acetylcysteine and Metamizole may falselydepress this assay. Reference Range HDL <40 mg/dL Low HDL Cholesterol HDL >or= 60 mg/dL High HDL Cholesterol Performed By: #### L 500.4100 ####[facility] [address] [place], [address] Cholesterol in LDL [Mass/Vol] 87 mg/dL Normal 0-130 [facility] Comment on above: Performed By: #### L 500.4100 ####[facility] [address] [place], [address] Cholesterol in VLDL [Mass/Vol] 12 mg/dL Normal 5-40 [facility] Comment on above: Performed By: #### L 500.4100 ####[facility] [address] [place], [address] Triglyceride [Mass/Vol] 58 mg/dL Normal [facility] Comment on above: Result Comment: The drugs N-Acetylcysteine and Metamizole may falselydepress this assay.Serum Triglycerides Reference Interval Normal <150 mg/dL Borderline high 150 - 199 mg/dL High 200 - 499 mg/dL Very High > or = 500 mg/dL Performed By: #### L 500.4100 ####[facility] [address] [place], [address] Basic Metabolic Profile (BMP )on 09-15-2024 BUN Normal 7-18 [facility] Comment on above: Result Comment: Canc elled via OM: Order cancelled - Patient discharged Performed By: #### L 500.2500, L100.0100 ####[facility] [address] [place], [address] BUN/CRE Normal 10-20 [facility] Comment on above: Result Comment: Canc elled via OM: Order cancelled - Patient discharged Performed By: #### L 500.2500, L100.0100 ####[facility] [address] [place], [address] CA,Total Normal 8.5-10.1 [facility] Comment on above: Result Comment: Canc elled via OM: Order cancelled - Patient discharged Performed By: #### L 500.2500, L100.0100 ####[facility] [address] [place], [address] CL Normal 98-107 [facility] Comment on above: Result Comment: Canc elled via OM: Order cancelled - Patient discharged Performed By: #### L 500.2500, L100.0100 ####[facility] [address] [place], [address] CO2 Normal 21.0-32.0 [facility] Comment on above: Result Comment: Canc elled via OM: Order cancelled - Patient discharged Performed By: #### L 500.2500, L100.0100 ####[facility] [address] [place], [address] CREAT,SERUM Normal 0.70-1.30 [facility] Comment on above: Result Comment: Canc elled via OM: Order cancelled - Patient discharged Performed By: #### L 500.2500, L100.0100 ####[facility] [address] [place], [address] EST GFR Normal >60 [facility] Comment on above: Result Comment: Canc elled via OM: Order cancelled - Patient discharged Performed By: #### L 500.2500, L100.0100 ####[facility] [address] [place], [address] EST GFR - AA Normal >60 [facility] Comment on above: Result Comment: Canc elled via OM: Order cancelled - Patient discharged Performed By: #### L 500.2500, L100.0100 ####[facility] [address] [place], [address] GAP Normal 5-15 [facility] Comment on above: Result Comment: Canc elled via OM: Order cancelled - Patient discharged Performed By: #### L 500.2500, L100.0100 ####[facility] [address] [place], [address] GLU Normal 74-106 [facility] Comment on above: Result Comment: Canc elled via OM: Order cancelled - Patient discharged Performed By: #### L 500.2500, L100.0100 ####[facility] [address] [place], [address] Potassium Normal 3.5-5.1 [facility] Comment on above: Result Comment: Canc elled via OM: Order cancelled - Patient discharged Performed By: #### L 500.2500, L100.0100 ####[facility] [address] [place], [address] Basic Metabolic Profile (BMP) Normal 136-145 [facility] Comment on above: Result Comment: Canc elled via OM: Order cancelled - Patient discharged Performed By: #### L 500.2500, L100.0100 ####[facility] [address] [place], [address] CBC W/Diff, Automatedon 09-01 Absolute Neut Normal 2.0-7.7 [facility] Comment on above: Result Comment: Canc elled via OM: Order cancelled - Patient discharged Performed By: #### L 500.2500, L100.0100 ####[facility] [address] [place], [address] HCT Normal 40-54 [facility] Comment on above: Result Comment: Canc elled via OM: Order cancelled - Patient discharged Performed By: #### L 500.2500, L100.0100 ####[facility] [address] [place], [address] HGB Normal 13.0-16.5 [facility] Comment on above: Result Comment: Canc elled via OM: Order cancelled - Patient discharged Performed By: #### L 500.2500, L100.0100 ####[facility] [address] [place], [address] MCH Normal 27.0-32.0 [facility] Comment on above: Result Comment: Canc elled via OM: Order cancelled - Patient discharged Performed By: #### L 500.2500, L100.0100 ####[facility] [address] [place], [address] MCHC Normal 32-36 [facility] Comment on above: Result Comment: Canc elled via OM: Order cancelled - Patient discharged Performed By: #### L 500.2500, L100.0100 ####[facility] [address] [place], [address] MCV Normal 80-94 [facility] Comment on above: Result Comment: Canc elled via OM: Order cancelled - Patient discharged Performed By: #### L 500.2500, L100.0100 ####[facility] [address] [place], [address] NEUT% Normal 47-70 [facility] Comment on above: Result Comment: Canc elled via OM: Order cancelled - Patient discharged Performed By: #### L 500.2500, L100.0100 ####[facility] [address] [place], [address] PLT Normal 150-450 [facility] Comment on above: Result Comment: Canc elled via OM: Order cancelled - Patient discharged Performed By: #### L 500.2500, L100.0100 ####[facility] [address] [place], [address] RBC Normal 4.6-6.2 [facility] Comment on above: Result Comment: Canc elled via OM: Order cancelled - Patient discharged Performed By: #### L 500.2500, L100.0100 ####[facility] [address] [place], [address] RDW CV Normal 11.6-14.6 [facility] Comment on above: Result Comment: Canc elled via OM: Order cancelled - Patient discharged Performed By: #### L 500.2500, L100.0100 ####[facility] [address] [place], [address] RDW SD Normal 35.1-43.9 [facility] Comment on above: Result Comment: Canc elled via OM: Order cancelled - Patient discharged Performed By: #### L 500.2500, L100.0100 ####[facility] [address] [place], [address] WBC Normal 4.4-11.0 [facility] Comment on above: Result Comment: Canc elled via OM: Order cancelled - Patient discharged Performed By: #### L 500.2500, L100.0100 ####[facility] [address] [place], [address] Basic Metabolic Profile (BMP )on 09-14-2024 BUN/CRE 21.4 RATIO High 10-20 [facility] Comment on above: Performed By: #### L 500.2500, L100.0100 ####[facility] [address] [place], [address] CA,Total 8.7 mg/dL Normal 8.5-10.1 [facility] Comment on above: Performed By: #### L 500.2500, L100.0100 ####[facility] [address] [place], [address] Chloride [Moles/Vol] 104 mmol/L Normal 98-107 [facility] Comment on above: Performed By: #### L 500.2500, L100.0100 ####[facility] [address] [place], [address] CO2 [Moles/Vol] 24.0 mmol/L Normal 21.0-32.0 [facility] Comment on above: Performed By: #### L 500.2500, L100.0100 ####[facility] [address] [place], [address] Creatinine [Mass/Vol] 1.96 mg/dL High 0.70-1.30 [facility] Comment on above: Result Comment: The validity of the calculated GFR GFRAA in patients over70 years has not been determined. Clinical correlation isessential. Performed By: #### L 500.2500, L100.0100 ####[facility] [address] [place], [address] ECRCL 28.02 ml/min Normal [facility] Comment on above: Performed By: #### L 500.2500, L100.0100 ####[facility] [address] [place], [address] EST GFR - AA 43 mL/min Low >60 [facility] Comment on above: Result Comment: Afri can [place] GFR Calc Performed By: #### L 500.2500, L100.0100 ####[facility] [address] [place], [address] GAP 7 Normal 5-15 [facility] Comment on above: Performed By: #### L 500.2500, L100.0100 ####[facility] [address] [place], [address] GFR/1.73 sq M.predicted among non-blacks MDRD (S/P/Bld) [Vol rate/Area] 35 mL/min/{1.73_m2} Low >[address] [facility] Comment on above: Result Comment: Non- GFR Calc Performed By: #### L 500.2500, L100.0100 ####[facility] [address] [place], [address] Glucose [Mass/Vol] 292 mg/dL High 74-106 [facility] Comment on above: Result Comment: Gluc ose result greater than or equal to 200 mg/dLsuggests DIABETES MELLITUS per A.D.A. criteria. Performed By: #### L 500.2500, L100.0100 ####[facility] [address] [place], [address] Potassium [Moles/Vol] 4.0 mmol/L Normal 3.5-5.1 [facility] Comment on above: Performed By: #### L 500.2500, L100.0100 ####[facility] [address] [place], [address] Sodium [Moles/Vol] 135 mmol/L Low 136-145 [facility] Comment on above: Performed By: #### L 500.2500, L100.0100 ####[facility] [address] [place], [address] Urea nitrogen [Mass/Vol] 42 mg/dL High 7-18 [facility] Comment on above: Performed By: #### L 500.2500, L100.0100 ####[facility] [address] [place], [address] Bedside Glucoseon 09-14-2024 FINGERSTICK GLU 276 mg/dL High 74-106 [facility] Comment on above: Result Comment: Dr James sim FollowedInsulin GivenMANAGEMENT OF PATIENT CARE PER NURSING PROTOCOL Performed By: #### L 501.080 ####[facility] [address] [place], [address] CBC W/Diff, Automatedon 09-01 Absolute Lymph 1.66 X10 3/uL Normal 0.83-4.51 [facility] Comment on above: Performed By: #### L 500.2500, L100.0100 ####[facility] [address] [place], [address] Absolute Neut 7.6 X10 3/uL Normal 2.0-7.7 [facility] Comment on above: Performed By: #### L 500.2500, L100.0100 ####[facility] [address] [place], [address] Basophils/100 WBC (Bld) 0.9 % Normal 0-1 [facility] Comment on above: Performed By: #### L 500.2500, L100.0100 ####[facility] [address] [place], [address] Eosinophils/100 WBC (Bld) 2.2 % Normal 0-5 [facility] Comment on above: Performed By: #### L 500.2500, L100.0100 ####[facility] [address] [place], [address] Erythrocyte distribution width (RBC) [Ratio] 13.4 % Normal 11.6-14.6 [facility] Comment on above: Performed By: #### L 500.2500, L100.0100 ####[facility] [address] [place], [address] Hematocrit (Bld) [Volume fraction] 32.8 % Low 40-54 [facility] Comment on above: Performed By: #### L 500.2500, L100.0100 ####[facility] [address] [place], [address] Hemoglobin (Bld) [Mass/Vol] 11.1 g/dL Low 13.0-16.5 [facility] Comment on above: Performed By: #### L 500.2500, L100.0100 ####[facility] [address] [place], [address] IG% 0.300 Normal 0.0-0.9 [facility] Comment on above: Result Comment: IG% - Immature Granulocytes (promyelocytes, myelocytes andmetamyelocytes) > 1% indicates that a LEFT SHIFT is Present. Performed By: #### L 500.2500, L100.0100 ####[facility] [address] [place], [address] Lymphocytes/100 WBC (Bld) 15.7 % Low 19-41 [facility] Comment on above: Performed By: #### L 500.2500, L100.0100 ####[facility] [address] [place], [address] MCH (RBC) [Entitic mass] 30.7 pg Normal 27.0-32.0 [facility] Comment on above: Performed By: #### L 500.2500, L100.0100 ####[facility] [address] [place], [address] MCHC (RBC) [Mass/Vol] 33.8 g/dL Normal 32-36 [facility] Comment on above: Performed By: #### L 500.2500, L100.0100 ####[facility] [address] [place], [address] MCV (RBC) [Entitic vol] 90.6 fL Normal 80-94 [facility] Comment on above: Performed By: #### L 500.2500, L100.0100 ####[facility] [address] [place], [address] Monocytes/100 WBC (Bld) 9.0 % Normal 0-10 [facility] Comment on above: Performed By: #### L 500.2500, L100.0100 ####[facility] [address] [place], [address] Neutrophils/100 WBC (Bld) 71.9 % High 47-70 [facility] Comment on above: Performed By: #### L 500.2500, L100.0100 ####[facility] [address] [place], [address] Nucleated RBC (Bld) [#/Vol] 0 10*3/uL Normal 0-5 [facility] Comment on above: Performed By: #### L 500.2500, L100.0100 ####[facility] [address] [place], [address] Platelet mean volume (Bld) [Entitic vol] 11.9 fL Normal 6.2-12.0 [facility] Comment on above: Performed By: #### L 500.2500, L100.0100 ####[facility] [address] [place], [address] Platelets (Bld) [#/Vol] 186 10*3/uL Normal 150-450 [facility] Comment on above: Performed By: #### L 500.2500, L100.0100 ####[facility] [address] [place], [address] RBC (Bld) [#/Vol] 3.62 10*6/uL Low 4.6-6.2 [facility] Comment on above: Performed By: #### L 500.2500, L100.0100 ####[facility] [address] [place], [address] RDW SD 44.5 fl High 35.1-43.9 [facility] Comment on above: Performed By: #### L 500.2500, L100.0100 ####[facility] [address] [place], [address] WBC (Bld) [#/Vol] 10.5 10*3/uL Normal 4.4-11.0 [facility] Comment on above: Performed By: #### L 500.2500, L100.0100 ####[facility] [address] [place], [address] Basic Metabolic Profile (BMP )on 09-13-2024 BUN Normal 7-18 [facility] Comment on above: Result Comment: Canc elled via OM: MD Ordered Performed By: #### L 100.0100, L500.2500 ####[facility] [address] [place], [address] BUN/CRE Normal 10-20 [facility] Comment on above: Result Comment: Canc elled via OM: MD Ordered Performed By: #### L 100.0100, L500.2500 ####[facility] [address] [place], [address] CA,Total Normal 8.5-10.1 [facility] Comment on above: Result Comment: Canc elled via OM: MD Ordered Performed By: #### L 100.0100, L500.2500 ####[facility] [address] [place], [address] CL Normal 98-107 [facility] Comment on above: Result Comment: Canc elled via OM: MD Ordered Performed By: #### L 100.0100, L500.2500 ####[facility] [address] [place], [address] CO2 Normal 21.0-32.0 [facility] Comment on above: Result Comment: Canc elled via OM: MD Ordered Performed By: #### L 100.0100, L500.2500 ####[facility] [address] [place], [address] CREAT,SERUM Normal 0.70-1.30 [facility] Comment on above: Result Comment: Canc elled via OM: MD Ordered Performed By: #### L 100.0100, L500.2500 ####[facility] [address] [place], [address] EST GFR Normal >60 [facility] Comment on above: Result Comment: Canc elled via OM: MD Ordered Performed By: #### L 100.0100, L500.2500 ####[facility] [address] [place], [address] EST GFR - AA Normal >60 [facility] Comment on above: Result Comment: Canc elled via OM: MD Ordered Performed By: #### L 100.0100, L500.2500 ####[facility] [address] [place], [address] GAP Normal 5-15 [facility] Comment on above: Result Comment: Canc elled via OM: MD Ordered Performed By: #### L 100.0100, L500.2500 ####[facility] [address] [place], [address] GLU Normal 74-106 [facility] Comment on above: Result Comment: Canc elled via OM: MD Ordered Performed By: #### L 100.0100, L500.2500 ####[facility] [address] [place], [address] Potassium Normal 3.5-5.1 [facility] Comment on above: Result Comment: Ray toussaint via OM: Ordered Performed By: #### L 100.0100, L500.2500 ####[facility] [address] [place], [address] Basic Metabolic Profile (BMP) Normal 136-145 [facility] Comment on above: Result Comment: Ray toussaint via OM: Ordered Performed By: #### L 100.0100, L500.2500 ####[facility] [address] [place], [address] BUN/CRE 17.4 RATIO Normal 10-20 [facility] Comment on above: Performed By: #### L 500.2500, L501.2300, L501.5200, L100.0100 ####[facility] [address] [place], [address] CA,Total 8.7 mg/dL Normal 8.5-10.1 [facility] Comment on above: Performed By: #### L 500.2500, L501.2300, L501.5200, L100.0100 ####[facility] [address] [place], [address] Chloride [Moles/Vol] 105 mmol/L Normal 98-107 [facility] Comment on above: Performed By: #### L 500.2500, L501.2300, L501.5200, L100.0100 ####[facility] [address] [place], [address] CO2 [Moles/Vol] 28.0 mmol/L Normal 21.0-32.0 [facility] Comment on above: Performed By: #### L 500.2500, L501.2300, L501.5200, L100.0100 ####[facility] [address] [place], [address] Creatinine [Mass/Vol] 1.78 mg/dL High 0.70-1.30 [facility] Comment on above: Result Comment: The validity of the calculated GFR GFRAA in patients over70 years has not been determined. Clinical correlation isessential. Performed By: #### L 500.2500, L501.2300, L501.5200, L100.0100 ####[facility] [address] [place], [address] ECRCL 30.95 ml/min Normal [facility] Comment on above: Performed By: #### L 500.2500, L501.2300, L501.5200, L100.0100 ####[facility] [address] [place], [address] EST GFR - AA 47 mL/min Low >60 [facility] Comment on above: Result Comment: Afri can Azerbaijani GFR Calc Performed By: #### L 500.2500, L501.2300, L501.5200, L100.0100 ####[facility] [address] [place], [address] GAP 7 Normal 5-15 [facility] Comment on above: Performed By: #### L 500.2500, L501.2300, L501.5200, L100.0100 ####[facility] [address] [place], [address] GFR/1.73 sq M.predicted among non-blacks MDRD (S/P/Bld) [Vol rate/Area] 39 mL/min/{1.73_m2} Low >[address] [facility] Comment on above: Result Comment: Non- GFR Calc Performed By: #### L 500.2500, L501.2300, L501.5200, L100.0100 ####[facility] [address] [place], [address] Glucose [Mass/Vol] 138 mg/dL High 74-106 [facility] Comment on above: Result Comment: Fast ing Glucose result greater than or equal to 126 mg/dLsuggests DIABETES MELLITUS per A.D.A. criteria. Performed By: #### L 500.2500, L501.2300, L501.5200, L100.0100 ####[facility] [address] [place], [address] Potassium [Moles/Vol] 3.4 mmol/L Low 3.5-5.1 [facility] Comment on above: Performed By: #### L 500.2500, L501.2300, L501.5200, L100.0100 ####[facility] [address] [place], [address] Sodium [Moles/Vol] 140 mmol/L Normal 136-145 [facility] Comment on above: Performed By: #### L 500.2500, L501.2300, L501.5200, L100.0100 ####[facility] [address] [place], [address] Urea nitrogen [Mass/Vol] 31 mg/dL High 7-18 [facility] Comment on above: Performed By: #### L 500.2500, L501.2300, L501.5200, L100.0100 ####[facility] [address] [place], [address] Bedside Glucoseon 09-13-2024 FINGERSTICK GLU 281 mg/dL High 74-106 [facility] Comment on above: Result Comment: ADITI GEMENT OF PATIENT CARE PER NURSING PROTOCOL Performed By: #### L 501.080 ####[facility] [address] [place], [address] FINGERSTICK GLU 179 mg/dL High 74-106 [facility] Comment on above: Result Comment: ADITI GEMENT OF PATIENT CARE PER NURSING PROTOCOL Performed By: #### L 501.080 ####[facility] [address] [place], [address] FINGERSTICK GLU 234 mg/dL High 74-106 [facility] Comment on above: Result Comment: ADITI GEMENT OF PATIENT CARE PER NURSING PROTOCOL Performed By: #### L 501.080 ####[facility] [address] [place], [address] FINGERSTICK GLU 238 mg/dL High 74-106 [facility] Comment on above: Result Comment: ADITI GEMENT OF PATIENT CARE PER NURSING PROTOCOL Performed By: #### L 501.080 ####[facility] [address] [place], [address] FINGERSTICK GLU 126 mg/dL High 74-106 [facility] Comment on above: Result Comment: ADITI GEMENT OF PATIENT CARE PER NURSING PROTOCOL Performed By: #### L 501.080 ####[facility] [address] [place], [address] CBC W/Diff, Automatedon 11-1 Absolute Neut Normal 2.0-7.7 [facility] Comment on above: Result Comment: Canc elled via OM: MD Ordered Performed By: #### L 100.0100, L500.2500 ####[facility] [address] [place], [address] HCT Normal 40-54 [facility] Comment on above: Result Comment: Canc elled via OM: MD Ordered Performed By: #### L 100.0100, L500.2500 ####[facility] [address] [place], [address] HGB Normal 13.0-16.5 [facility] Comment on above: Result Comment: Canc elled via OM: MD Ordered Performed By: #### L 100.0100, L500.2500 ####[facility] [address] [place], [address] MCH Normal 27.0-32.0 [facility] Comment on above: Result Comment: Canc elled via OM: MD Ordered Performed By: #### L 100.0100, L500.2500 ####[facility] [address] [place], [address] MCHC Normal 32-36 [facility] Comment on above: Result Comment: Canc elled via OM: MD Ordered Performed By: #### L 100.0100, L500.2500 ####[facility] [address] [place], [address] MCV Normal 80-94 [facility] Comment on above: Result Comment: Canc elled via OM: MD Ordered Performed By: #### L 100.0100, L500.2500 ####[facility] [address] [place], [address] NEUT% Normal 47-70 [facility] Comment on above: Result Comment: Canc elled via OM: MD Ordered Performed By: #### L 100.0100, L500.2500 ####[facility] [address] [place], [address] PLT Normal 150-450 [facility] Comment on above: Result Comment: Canc elled via OM: MD Ordered Performed By: #### L 100.0100, L500.2500 ####[facility] [address] [place], [address] RBC Normal 4.6-6.2 [facility] Comment on above: Result Comment: Canc elled via OM: MD Ordered Performed By: #### L 100.0100, L500.2500 ####[facility] [address] [place], [address] RDW CV Normal 11.6-14.6 [facility] Comment on above: Result Comment: Canc elled via OM: MD Ordered Performed By: #### L 100.0100, L500.2500 ####[facility] [address] [place], [address] RDW SD Normal 35.1-43.9 [facility] Comment on above: Result Comment: Ray toussaint via OM: MD Ordered Performed By: #### L 100.0100, L500.2500 ####[facility] [address] [place], [address] WBC Normal 4.4-11.0 [facility] Comment on above: Result Comment: Ray toussaint via OM: MD Ordered Performed By: #### L 100.0100, L500.2500 ####[facility] [address] [place], [address] Absolute Lymph 2.32 X10 3/uL Normal 0.83-4.51 [facility] Comment on above: Performed By: #### L 500.2500, L501.2300, L501.5200, L100.0100 ####[facility] [address] [place], [address] Absolute Neut 7.4 X10 3/uL Normal 2.0-7.7 [facility] Comment on above: Performed By: #### L 500.2500, L501.2300, L501.5200, L100.0100 ####[facility] [address] [place], [address] Basophils/100 WBC (Bld) 0.8 % Normal 0-1 [facility] Comment on above: Performed By: #### L 500.2500, L501.2300, L501.5200, L100.0100 ####[facility] [address] [place], [address] Eosinophils/100 WBC (Bld) 1.3 % Normal 0-5 [facility] Comment on above: Performed By: #### L 500.2500, L501.2300, L501.5200, L100.0100 ####[facility] [address] [place], [address] Erythrocyte distribution width (RBC) [Ratio] 13.8 % Normal 11.6-14.6 [facility] Comment on above: Performed By: #### L 500.2500, L501.2300, L501.5200, L100.0100 ####[facility] [address] [place], [address] Hematocrit (Bld) [Volume fraction] 30.7 % Low 40-54 [facility] Comment on above: Performed By: #### L 500.2500, L501.2300, L501.5200, L100.0100 ####[facility] [address] [place], [address] Hemoglobin (Bld) [Mass/Vol] 10.4 g/dL Low 13.0-16.5 [facility] Comment on above: Performed By: #### L 500.2500, L501.2300, L501.5200, L100.0100 ####[facility] [address] [place], [address] IG% 0.400 Normal 0.0-0.9 [facility] Comment on above: Result Comment: IG% - Immature Granulocytes (promyelocytes, myelocytes andmetamyelocytes) > 1% indicates that a LEFT SHIFT is Present. Performed By: #### L 500.2500, L501.2300, L501.5200, L100.0100 ####[facility] [address] [place], [address] Lymphocytes/100 WBC (Bld) 21.2 % Normal 19-41 [facility] Comment on above: Performed By: #### L 500.2500, L501.2300, L501.5200, L100.0100 ####[facility] [address] [place], [address] MCH (RBC) [Entitic mass] 30.6 pg Normal 27.0-32.0 [facility] Comment on above: Performed By: #### L 500.2500, L501.2300, L501.5200, L100.0100 ####[facility] [address] [place], [address] MCHC (RBC) [Mass/Vol] 33.9 g/dL Normal 32-36 [facility] Comment on above: Performed By: #### L 500.2500, L501.2300, L501.5200, L100.0100 ####[facility] [address] [place], [address] MCV (RBC) [Entitic vol] 90.3 fL Normal 80-94 [facility] Comment on above: Performed By: #### L 500.2500, L501.2300, L501.5200, L100.0100 ####[facility] [address] [place], [address] Monocytes/100 WBC (Bld) 9.3 % Normal 0-10 [facility] Comment on above: Performed By: #### L 500.2500, L501.2300, L501.5200, L100.0100 ####[facility] [address] [place], [address] Neutrophils/100 WBC (Bld) 67.0 % Normal 47-70 [facility] Comment on above: Performed By: #### L 500.2500, L501.2300, L501.5200, L100.0100 ####[facility] [address] [place], [address] Nucleated RBC (Bld) [#/Vol] 0 10*3/uL Normal 0-5 [facility] Comment on above: Performed By: #### L 500.2500, L501.2300, L501.5200, L100.0100 ####[facility] [address] [place], [address] Platelet mean volume (Bld) [Entitic vol] 11.4 fL Normal 6.2-12.0 [facility] Comment on above: Performed By: #### L 500.2500, L501.2300, L501.5200, L100.0100 ####[facility] [address] [place], [address] Platelets (Bld) [#/Vol] 168 10*3/uL Normal 150-450 [facility] Comment on above: Performed By: #### L 500.2500, L501.2300, L501.5200, L100.0100 ####[facility] [address] [place], [address] RBC (Bld) [#/Vol] 3.40 10*6/uL Low 4.6-6.2 [facility] Comment on above: Performed By: #### L 500.2500, L501.2300, L501.5200, L100.0100 ####[facility] [address] [place], [address] RDW SD 45.1 fl High 35.1-43.9 [facility] Comment on above: Performed By: #### L 500.2500, L501.2300, L501.5200, L100.0100 ####[facility] [address] [place], [address] WBC (Bld) [#/Vol] 11.0 10*3/uL Normal 4.4-11.0 [facility] Comment on above: Performed By: #### L 500.2500, L501.2300, L501.5200, L100.0100 ####[facility] [address] [place], [address] Magnesiumon 09-13-2024 Magnesium [Mass/Vol] 2.0 mg/dL Normal 1.6-2.6 [facility] Comment on above: Performed By: #### L 500.2500, L501.2300, L501.5200, L100.0100 ####[facility] [address] [place], [address] Phosphoruson 09-13-2024 Phosphate [Mass/Vol] 3.2 mg/dL Normal 2.5-4.9 [facility] Comment on above: Performed By: #### L 500.2500, L501.2300, L501.5200, L100.0100 ####[facility] [address] [place], [address] 12 Lead EKGon 09-12-2024 12 Lead EKG Normal [facility] BNP,B-Type NATRIURETIC PEPTI Silviano 09-12-2024 Natriuretic peptide B (Bld) [Mass/Vol] 903.4 pg/mL High 0-100 [facility] Comment on above: Performed By: #### L 100.0100, L501.5425, L300.3900, L501.5200, L300.4310, L500.2500, L503.6620 ####[facility] [address] [place], [address] Basic Metabolic Profile (BMP )on 09-12-2024 BUN/CRE 14.5 RATIO Normal 10-20 [facility] Comment on above: Order Comment: 1Y Performed By: #### L 100.0100, L501.5425, L300.3900, L501.5200, L300.4310, L500.2500, L503.6620 ####[facility] [address] [place], [address] CA,Total 9.1 mg/dL Normal 8.5-10.1 [facility] Comment on above: Order Comment: 1Y Performed By: #### L 100.0100, L501.5425, L300.3900, L501.5200, L300.4310, L500.2500, L503.6620 ####[facility] [address] [place], [address] Chloride [Moles/Vol] 105 mmol/L Normal 98-107 [facility] Comment on above: Order Comment: 1Y Performed By: #### L 100.0100, L501.5425, L300.3900, L501.5200, L300.4310, L500.2500, L503.6620 ####[facility] [address] [place], [address] CO2 [Moles/Vol] 22.0 mmol/L Normal 21.0-32.0 [facility] Comment on above: Order Comment: 1Y Performed By: #### L 100.0100, L501.5425, L300.3900, L501.5200, L300.4310, L500.2500, L503.6620 ####[facility] [address] [place], [address] Creatinine [Mass/Vol] 1.86 mg/dL High 0.70-1.30 [facility] Comment on above: Order Comment: 1Y Result Comment: The validity of the calculated GFR GFRAA in patients over70 years has not been determined. Clinical correlation isessential. Performed By: #### L 100.0100, L501.5425, L300.3900, L501.5200, L300.4310, L500.2500, L503.6620 ####[facility] [address] [place], [address] ECRCL 29.61 ml/min Normal [facility] Comment on above: Order Comment: 1Y Performed By: #### L 100.0100, L501.5425, L300.3900, L501.5200, L300.4310, L500.2500, L503.6620 ####[facility] [address] [place], [address] EST GFR - AA 45 mL/min Low >60 [facility] Comment on above: Order Comment: 1Y Result Comment: Afri can Azerbaijani GFR Calc Performed By: #### L 100.0100, L501.5425, L300.3900, L501.5200, L300.4310, L500.2500, L503.6620 ####[facility] [address] [place], [address] GAP 11 Normal 5-15 [facility] Comment on above: Order Comment: 1Y Performed By: #### L 100.0100, L501.5425, L300.3900, L501.5200, L300.4310, L500.2500, L503.6620 ####[facility] [address] [place], [address] GFR/1.73 sq M.predicted among non-blacks MDRD (S/P/Bld) [Vol rate/Area] 37 mL/min/{1.73_m2} Low >[address] [facility] Comment on above: Order Comment: 1Y Result Comment: Non- GFR Calc Performed By: #### L 100.0100, L501.5425, L300.3900, L501.5200, L300.4310, L500.2500, L503.6620 ####[facility] [address] [place], [address] Glucose [Mass/Vol] 369 mg/dL High 74-106 [facility] Comment on above: Order Comment: 1Y Result Comment: Gluc ose result greater than or equal to 200 mg/dLsuggests DIABETES MELLITUS per A.D.A. criteria. Performed By: #### L 100.0100, L501.5425, L300.3900, L501.5200, L300.4310, L500.2500, L503.6620 ####[facility] [address] [place], [address] Potassium [Moles/Vol] 4.1 mmol/L Normal 3.5-5.1 [facility] Comment on above: Order Comment: 1Y Performed By: #### L 100.0100, L501.5425, L300.3900, L501.5200, L300.4310, L500.2500, L503.6620 ####[facility] [address] [place], [address] Sodium [Moles/Vol] 138 mmol/L Normal 136-145 [facility] Comment on above: Order Comment: 1Y Performed By: #### L 100.0100, L501.5425, L300.3900, L501.5200, L300.4310, L500.2500, L503.6620 ####[facility] [address] [place], [address] Urea nitrogen [Mass/Vol] 27 mg/dL High 7-18 [facility] Comment on above: Order Comment: 1Y Performed By: #### L 100.0100, L501.5425, L300.3900, L501.5200, L300.4310, L500.2500, L503.6620 ####[facility] [address] [place], [address] Bedside Glucoseon 09-12-2024 FINGERSTICK GLU 202 mg/dL High 74-106 [facility] Comment on above: Result Comment: ADITI GEMENT OF PATIENT CARE PER NURSING PROTOCOL Performed By: #### L 501.080 ####[facility] [address] [place], [address] FINGERSTICK GLU 122 mg/dL High 74-106 [facility] Comment on above: Result Comment: ADITI GEMENT OF PATIENT CARE PER NURSING PROTOCOL Performed By: #### L 501.080 ####[facility] [address] [place], [address] FINGERSTICK GLU 398 mg/dL High 74-106 [facility] Comment on above: Result Comment: ADITI GEMENT OF PATIENT CARE PER NURSING PROTOCOL Performed By: #### L 501.080 ####[facility] [address] [place], [address] FINGERSTICK GLU 377 mg/dL High 74-106 [facility] Comment on above: Result Comment: ADITI ESCOBEDO OF PATIENT CARE PER NURSING PROTOCOL Performed By: #### L 501.080 ####[facility] [address] [place], [address] CBC W/Diff, Automatedon 09-01 Absolute Lymph 2.62 X10 3/uL Normal 0.83-4.51 [facility] Comment on above: Performed By: #### L 100.0100, L501.5425, L300.3900, L501.5200, L300.4310, L500.2500, L503.6620 ####[facility] [address] [place], [address] Absolute Neut 19.7 X10 3/uL High 2.0-7.7 [facility] Comment on above: Performed By: #### L 100.0100, L501.5425, L300.3900, L501.5200, L300.4310, L500.2500, L503.6620 ####[facility] [address] [place], [address] Basophils/100 WBC (Bld) 0.7 % Normal 0-1 [facility] Comment on above: Performed By: #### L 100.0100, L501.5425, L300.3900, L501.5200, L300.4310, L500.2500, L503.6620 ####[facility] [address] [place], [address] Eosinophils/100 WBC (Bld) 0.8 % Normal 0-5 [facility] Comment on above: Performed By: #### L 100.0100, L501.5425, L300.3900, L501.5200, L300.4310, L500.2500, L503.6620 ####[facility] [address] [place], [address] Erythrocyte distribution width (RBC) [Ratio] 13.8 % Normal 11.6-14.6 [facility] Comment on above: Performed By: #### L 100.0100, L501.5425, L300.3900, L501.5200, L300.4310, L500.2500, L503.6620 ####[facility] [address] [place], [address] Hematocrit (Bld) [Volume fraction] 38.9 % Low 40-54 [facility] Comment on above: Performed By: #### L 100.0100, L501.5425, L300.3900, L501.5200, L300.4310, L500.2500, L503.6620 ####[facility] [address] [place], [address] Hemoglobin (Bld) [Mass/Vol] 13.1 g/dL Normal 13.0-16.5 [facility] Comment on above: Performed By: #### L 100.0100, L501.5425, L300.3900, L501.5200, L300.4310, L500.2500, L503.6620 ####[facility] [address] [place], [address] IG% 0.800 Normal 0.0-0.9 [facility] Comment on above: Result Comment: IG% - Immature Granulocytes (promyelocytes, myelocytes andmetamyelocytes) > 1% indicates that a LEFT SHIFT is Present. Performed By: #### L 100.0100, L501.5425, L300.3900, L501.5200, L300.4310, L500.2500, L503.6620 ####[facility] [address] [place], [address] Lymphocytes/100 WBC (Bld) 10.7 % Low 19-41 [facility] Comment on above: Performed By: #### L 100.0100, L501.5425, L300.3900, L501.5200, L300.4310, L500.2500, L503.6620 ####[facility] [address] [place], [address] MCH (RBC) [Entitic mass] 30.6 pg Normal 27.0-32.0 [facility] Comment on above: Performed By: #### L 100.0100, L501.5425, L300.3900, L501.5200, L300.4310, L500.2500, L503.6620 ####[facility] [address] [place], [address] MCHC (RBC) [Mass/Vol] 33.7 g/dL Normal 32-36 [facility] Comment on above: Performed By: #### L 100.0100, L501.5425, L300.3900, L501.5200, L300.4310, L500.2500, L503.6620 ####[facility] [address] [place], [address] MCV (RBC) [Entitic vol] 90.9 fL Normal 80-94 [facility] Comment on above: Performed By: #### L 100.0100, L501.5425, L300.3900, L501.5200, L300.4310, L500.2500, L503.6620 ####[facility] [address] [place], [address] Monocytes/100 WBC (Bld) 6.2 % Normal 0-10 [facility] Comment on above: Performed By: #### L 100.0100, L501.5425, L300.3900, L501.5200, L300.4310, L500.2500, L503.6620 ####[facility] [address] [place], [address] Neutrophils/100 WBC (Bld) 80.8 % High 47-70 [facility] Comment on above: Performed By: #### L 100.0100, L501.5425, L300.3900, L501.5200, L300.4310, L500.2500, L503.6620 ####[facility] [address] [place], [address] Nucleated RBC (Bld) [#/Vol] 0 10*3/uL Normal 0-5 [facility] Comment on above: Performed By: #### L 100.0100, L501.5425, L300.3900, L501.5200, L300.4310, L500.2500, L503.6620 ####[facility] [address] [place], [address] Platelet mean volume (Bld) [Entitic vol] 11.4 fL Normal 6.2-12.0 [facility] Comment on above: Performed By: #### L 100.0100, L501.5425, L300.3900, L501.5200, L300.4310, L500.2500, L503.6620 ####[facility] [address] [place], [address] Platelets (Bld) [#/Vol] 227 10*3/uL Normal 150-450 [facility] Comment on above: Performed By: #### L 100.0100, L501.5425, L300.3900, L501.5200, L300.4310, L500.2500, L503.6620 ####[facility] [address] [place], [address] RBC (Bld) [#/Vol] 4.28 10*6/uL Low 4.6-6.2 [facility] Comment on above: Performed By: #### L 100.0100, L501.5425, L300.3900, L501.5200, L300.4310, L500.2500, L503.6620 ####[facility] [address] [place], [address] RDW SD 46.5 fl High 35.1-43.9 [facility] Comment on above: Performed By: #### L 100.0100, L501.5425, L300.3900, L501.5200, L300.4310, L500.2500, L503.6620 ####[facility] [address] [place], [address] WBC (Bld) [#/Vol] 24.4 10*3/uL High 4.4-11.0 [facility] Comment on above: Performed By: #### L 100.0100, L501.5425, L300.3900, L501.5200, L300.4310, L500.2500, L503.6620 ####[facility] [address] [place], [address] Chest 1 View (Portable)on Chest 1 View (Portable) Normal [facility] Echo Completeon 09-12-2024 Echo Complete Normal [facility] Emergency Department Summary on 09-12-2024 Emergency Department Summary Normal [facility] Kidney and Bladderon 024 Kidney and Bladder Normal [facility] L501.4020on 09-12-2024 TROPONIN-I HS 346 pg/mL Invalid Interpretation Code 3.0-78.0 [facility] Comment on above: Order Comment: 'TROP ' Serial specimen #1, #2 or #3: 3 Result Comment: Crit ical Result(s) Called at: 09:19:13 09/12/2024 by:Eve Mendoza to Tania Cruz. Results read back by same. Please Note: New Test Units and Gender Specific Reference Ranges. For more information see Policy Stat Procedure [place] High Sensitivity Troponin (TNIH) and attachments. Performed By: #### L 501.4020 ####[facility] [address] [place], [address] TROPONIN-I HS 205 pg/mL Invalid Interpretation Code 3.0-78.0 [facility] Comment on above: Result Comment: Crit ical Result(s) Called at: 06:27:52 09/12/2024 by:Eve Valiente. Results read back by same. Please Note: New Test Units and Gender Specific Reference Ranges. For more information see Policy Stat Procedure [place] High Sensitivity Troponin (TNIH) and attachments. Performed By: #### L 501.4020 ####[facility] [address] [place], [place], [phone] L501.5425on 09-12-2024 TROPONIN-I HS 57 pg/mL Normal 3.0-78.0 [facility] Comment on above: Order Comment: 1Y Result Comment: Helder francisco Note: New Test Units and Gender Specific Reference Ranges. For more information see Policy Stat Procedure [place] High Sensitivity Troponin (TNIH) and attachments. Performed By: #### L 100.0100, L501.5425, L300.3900, L501.5200, L300.4310, L500.2500, L503.6620 ####[facility] [address] [place], [place], [address] Magnesiumon 09-12-2024 Magnesium [Mass/Vol] 2.1 mg/dL Normal 1.6-2.6 [facility] Comment on above: Order Comment: 1Y Performed By: #### L 100.0100, L501.5425, L300.3900, L501.5200, L300.4310, L500.2500, L503.6620 ####[facility] [address] [place], [place], [address] Partial Thromboplast Timeon 09-12-2024 aPTT Coag (Bld) [Time] 35.1 s Normal 24.1-36.[address] [facility] Comment on above: Performed By: #### L 100.0100, L501.5425, L300.3900, L501.5200, L300.4310, L500.2500, L503.6620 ####[facility] [address] [place], [address] Prothrombin Time w/INRon INR Coag (PPP) [Relative time] 1.1 {INR} Normal [facility] Comment on above: Performed By: #### L 100.0100, L501.5425, L300.3900, L501.5200, L300.4310, L500.2500, L503.6620 ####[facility] [address] [place], [address] PT Coag (PPP) [Time] 14.6 s Normal 11.7-14.9 [facility] Comment on above: Performed By: #### L 100.0100, L501.5425, L300.3900, L501.5200, L300.4310, L500.2500, L503.6620 ####[facility] [address] [place], [address] Renal Artery Duplex Ultrasou ndon 09-12-2024 Renal Artery Duplex Ultrasound Normal [facility] CBC W Auto Differential pane l (Bld)on 07-07-2024 Basophils (Bld) [#/Vol] 0.09 x10*3/uL Normal 0.00-0.10 [facility] Comment on above: Performed By: #### 5 7021-8 #### MAGGI PARNELL ([id number]) [facility] ([facility]) [address] [place] [address] Basophils/100 WBC (Bld) 1.1 % Normal 0.0-2.0 [facility] Comment on above: Performed By: #### 5 7021-8 #### MAGGI PARNELL ([id number]) [facility] ([facility]) [address] [place] [address] Eosinophils (Bld) [#/Vol] 0.43 x10*3/uL High 0.00-0. 40 [facility] Comment on above: Performed By: #### 5 7021-8 #### MAGGI PARNELL ([id number]) [facility] ([facility]) [address] [place] [address] 21561 Eosinophils/100 WBC (Bld) 5.4 % Normal 0.0-6.0 [facility] Comment on above: Performed By: #### 5 7021-8 #### MAGGI PARNELL ([id number]) [facility] ([facility]) [address] [place] [address] 09716 Erythrocyte distribution width (RBC) [Ratio] 13.5 % Normal 11.5-14.5 [facility] Comment on above: Performed By: #### 5 7021-8 #### MAGGI PARNELL ([id number]) [facility] ([facility]) [address] [place] [address] 71183 Hematocrit (Bld) [Volume fraction] 43.5 % Normal 41.0-52.0 [facility] Comment on above: Performed By: #### 5 7021-8 #### MAGGI PARNELL ([id number]) [facility] ([facility]) [address] [place] [address] 42897 Hemoglobin (Bld) [Mass/Vol] 13.6 g/dL Normal 13.5-17.5 [facility] Comment on above: Performed By: #### 5 7021-8 #### MAGGI PARNELL ([id number]) [facility] ([facility]) [address] [place] [address] 91161 Immature granulocytes (Bld) [#/Vol] 0.02 x10*3/uL Normal 0.00-0.50 [facility] Comment on above: Performed By: #### 5 7021-8 #### MAGGI PARNELL ([id number]) [facility] ([facility]) [address] [place] [address] 49090 Immature granulocytes/100 WBC (Bld) 0.3 % Normal 0.0-0.9 [facility] Comment on above: Result Comment: Arielle ture Granulocyte Count (IG) includes promyelocytes, myelocytes and metamyelocytes but does not include bands. Percent differential counts (%) should be interpreted in the context of the absolute cell counts (cells/UL). Performed By: #### 5 7021-8 #### MAGGI PARNELL ([id number]) [facility] ([facility]) [address] [place] [address] 72873 Lymphocytes (Bld) [#/Vol] 2.08 x10*3/uL Normal 0.80-3. 00 [facility] Comment on above: Performed By: #### 5 7021-8 #### MAGGI PARNELL ([id number]) [facility] ([facility]) [address] [place] [address] 65935 Lymphocytes/100 WBC (Bld) 26.3 % Normal 13.0-44.0 [facility] Comment on above: Performed By: #### 5 7021-8 #### MAGGI PARNELL ([id number]) [facility] ([facility]) [address] [place] [address] 47743 MCH (RBC) [Entitic mass] 30.4 pg Normal 26.0-34.0 [facility] Comment on above: Performed By: #### 5 7021-8 #### MAGGI PARNELL ([id number]) [facility] ([facility]) [address] [place] [address] 60881 MCHC (RBC) [Mass/Vol] 31.3 g/dL Low 32.0-36.0 [facility] Comment on above: Performed By: #### 5 7021-8 #### MAGGI PARNELL ([id number]) [facility] ([facility]) [address] [place] [address] 51300 MCV (RBC) [Entitic vol] 97 fL Normal 80-100 U [facility] Comment on above: Performed By: #### 5 7021-8 #### MAGGI PARNELL ([id number]) [facility] ([facility]) [address] [place] [address] 21953 Monocytes (Bld) [#/Vol] 0.60 x10*3/uL Normal 0.05-0.80 [facility] Comment on above: Performed By: #### 5 7021-8 #### MAGGI PARNELL ([id number]) [facility] ([facility]) [facility] [place] [address] Monocytes/100 WBC (Bld) 7.6 % Normal 2.0-10.0 U [facility] Comment on above: Performed By: #### 5 7021-8 #### MAGGI PARNELL ([id number]) [facility] ([facility]) [address] [place] [address] 71455 Neutrophils (Bld) [#/Vol] 4.68 x10*3/uL Normal 1.60-5. 50 [facility] Comment on above: Result Comment: Perc ent differential counts (%) should be interpreted in the context of the absolute cell counts (cells/uL). Performed By: #### 5 7021-8 #### MAGGI PARNELL ([id number]) [facility] ([facility]) [address] [place] [address] 62735 Neutrophils/100 WBC (Bld) 59.3 % Normal 40.0-80.0 [facility] Comment on above: Performed By: #### 5 7021-8 #### MAGGI PARNELL ([id number]) [facility] ([facility]) [address] [place] [address] 15763 Nucleated RBC/100 WBC (Bld) [Ratio] 0.0 /100 WBCs Normal 0.0-0.0 [facility] Comment on above: Performed By: #### 5 7021-8 #### MAGGI PARNELL ([id number]) [facility] ([facility]) [address] [place] [address] 78518 Platelets (Bld) [#/Vol] 260 x10*3/uL Normal 150-450 [facility] Comment on above: Performed By: #### 5 7021-8 #### MAGGI PARNELL ([id number]) [facility] ([facility]) [address] [place] [address] 62211 RBC (Bld) [#/Vol] 4.48 x10*6/uL Low 4.50-5.90 [facility] Comment on above: Performed By: #### 5 7021-8 #### MAGGI PARNELL ([id number]) [facility] ([facility]) [address] [place] [address] WBC (Bld) [#/Vol] 7.9 x10*3/uL Normal 4.4-11.3 [facility] Comment on above: Performed By: #### 5 7021-8 #### MAGGI PARNELL ([id number]) [facility] ([facility]) [address] [place] [address] Comprehensive metabolic 2000 panelon 07-07-2024 Albumin BCP dye [Mass/Vol] 4.3 g/dL Normal 3.4-5.0 [facility] Comment on above: Performed By: #### 2 4323-8 #### MAGGI PARNELL ([id number]) [facility] ([facility]) [address] [place] [address] ALP [Catalytic activity/Vol] 69 U/L Normal 33-136 [facility] Comment on above: Performed By: #### 2 4323-8 #### MAGGI PARNELL ([id number]) [facility] ([facility]) [address] [place] [address] ALT With P-5'-P [Catalytic activity/Vol] 8 U/L Low 10-52 [facility] Comment on above: Result Comment: Twila ents treated with Sulfasalazine may generate falsely decreased results for ALT. Performed By: #### 2 4323-8 #### MAGGI PARNELL ([id number]) [facility] ([facility]) [address] [place] [address] Anion gap [Moles/Vol] 14 mmol/L Normal 10-20 [facility] Comment on above: Performed By: #### 2 4323-8 #### MAGGI PARNELL ([id number]) [facility] ([facility]) [address] [place] [address] AST With P-5'-P [Catalytic activity/Vol] 13 U/L Normal 9-39 [facility] Comment on above: Performed By: #### 2 4323-8 #### MAGGI PARNELL ([id number]) [facility] ([facility]) [address] [place] [address] Bilirubin [Mass/Vol] 0.5 mg/dL Normal 0.0-1.2 [facility] Comment on above: Performed By: #### 2 4323-8 #### MAGGI PARNELL ([id number]) [facility] ([facility]) [address] [place] [address] Calcium [Mass/Vol] 9.5 mg/dL Normal 8.6-10.3 [facility] Comment on above: Performed By: #### 2 4323-8 #### MAGGI PARNELL ([id number]) [facility] ([facility]) [address] [place] [address] 11776 Chloride [Moles/Vol] 106 mmol/L Normal 98-107 [facility] Comment on above: Performed By: #### 2 4323-8 #### MAGGI PARNELL ([id number]) [facility] ([facility]) [address] [place] [address] 21997 CO2 [Moles/Vol] 27 mmol/L Normal 21-32 [facility] Comment on above: Performed By: #### 2 4323-8 #### MAGGI PARNELL ([id number]) [facility] ([facility]) [address] [place] [address] 42790 Creatinine [Mass/Vol] 1.61 mg/dL High 0.50-1.30 [facility] Comment on above: Performed By: #### 2 4323-8 #### MAGGI PARNELL ([id number]) [facility] ([facility]) [address] [place] [address] 29588 Glomerular filtration rate/1.73 sq M.predicted 43 mL/min/1.73m*2 Low >60 [facility] Comment on above: Result Comment: Calc ulations of estimated GFR are performed using the 2020 CKD-EPI Study Refit equation without the race variable for the IDMS-Traceable creatinine methods. https://jasn.asnjournals.org/content//ASN.20 10895052 Performed By: #### 2 4323-8 #### MAGGI PARNELL ([id number]) [facility] ([facility]) [address] [place] [address] Glucose [Mass/Vol] 119 mg/dL High 74-99 [facility] Comment on above: Performed By: #### 2 4323-8 #### MAGGI PARNELL ([id number]) [facility] ([facility]) [address] [place] [address] 36709 Potassium [Moles/Vol] 4.0 mmol/L Normal 3.5-5.3 [facility] Comment on above: Performed By: #### 2 4323-8 #### MAGGI PANRELL ([id number]) [facility] ([facility]) [address] [place] [address] 29879 Protein [Mass/Vol] 6.8 g/dL Normal 6.4-8.2 [facility] Comment on above: Performed By: #### 2 432-8 #### MAGGI PARNELL ([id number]) [facility] ([facility]) [address] [place] [address] 73279 Sodium [Moles/Vol] 143 mmol/L Normal 136-145 [facility] Comment on above: Performed By: #### 2 432-8 #### MAGGI PARNELL ([id number]) [facility] ([facility]) [facility] [place] [address] Urea nitrogen [Mass/Vol] 28 mg/dL High 6-23 [facility] Comment on above: Performed By: #### 2 4323-8 #### MAGGI PARNELL ([id number]) [facility] ([facility]) [address] [place] [address] 03797 HbA1c (Bld) [Mass fraction]o n 07-07-2024 Average glucose Estimated from glycated hemoglobin (Bld) [Mass/Vol] 180 mg/dL Normal Not Established [facility] Comment on above: Order Comment: Diagn osis of Diabetes-Adults Non-Diabetic: < or = 5.6% Increased risk for developing diabetes: 5.7-6.4% Diagnostic of diabetes: > or = 6.5% Performed By: #### 4 548-4 #### ALENA Paredes ([id number]) [facility] ([facility]) [address] [place] [address] Hemoglobin A1c/Hemoglobin.to alcira 07-07-2024 HbA1c (Bld) [Mass fraction] 7.9 % High see below [facility] Comment on above: Order Comment: Diagn osis of Diabetes-Adults Non-Diabetic: < or = 5.6% Increased risk for developing diabetes: 5.7-6.4% Diagnostic of diabetes: > or = 6.5% Performed By: #### 4 548-4 #### ALENA Paredes ([id number]) [facility] ([facility]) [address] [place] [address] Phosphateon 07-07-2024 Phosphate [Mass/Vol] 3.8 mg/dL Normal 2.5-4.9 [facility] Comment on above: Result Comment: The performance characteristics of phosphorus testing in heparinized plasma have been validated by the individual laboratory site where testing is performed. Testing on heparinized plasma is not approved by the FDA; however, such approval is not necessary. Performed By: #### 2 777-1 #### MAGGI PARNELL ([id number]) [facility] ([facility]) [address] [place] [address] Thyrotropinon 07-07-2024 TSH Qn 0.85 m[IU]/L Normal 0.44-3.98 [facility] Comment on above: Order Comment: TSH t esting is performed using different testing methodology at [facility] than at other [facility]. Direct result comparisons should only be made within the same method. Performed By: #### 3 016-3 #### MAGGI PARNELL ([id number]) [facility] ([facility]) [address] [place] [address] Thyroxine.freeon 07-07-2024 Free T4 [Mass/Vol] 1.01 ng/dL Normal 0.61-1.12 [facility] Comment on above: Order Comment: Thyro xine Free testing is performed using different testing methodology at [facility] than at other [facility]. Direct result comparisons should only [...] By: #### 3 024-7 #### MAGGI PARNELL ([id number]) [facility] ([facility]) [address] [place] [address] 18117 Urateon 07-07-2024 Urate [Mass/Vol] 5.7 mg/dL Normal 4.0-7.5 [facility] Comment on above: Result Comment: Hortencia puncture immediately after or during the administration of Metamizole may lead to falsely low results. Testing should be performed immediately prior to Metamizole dosing. Performed By: #### 3 084-1 #### MAGGI PARNELL ([id number]) [facility] ([facility]) [address] [place] [address] 60582 PT D/C Summary (1)on 024 PT D/C Summary (1) Normal [facility] Albumin/Creatinineon 024 Albumin/Creatinine DL <= 20 mg/L (U) [Mass ratio] 221.6 ug/mg Creat High <30.0 [facility] Comment on above: Performed By: #### 1 4959-1 #### ALENA Paredes ([id number]) [facility] ([facility]) [id number] [place] [address] 77077 Albumin/Creatinine DL <= 20 mg/L (U) [Mass ratio]on 02-07-2024 Albumin DL <= 20 mg/L (U) [Mass/Vol] 219.8 mg/L Normal Not established [facility] Comment on above: Performed By: #### 1 4959-1 #### ALENA Paredes ([id number]) [facility] ([facility]) [address] [place] [address] Creatinine (U) [Mass/Vol] 99.2 mg/dL Normal 20.0-370.0 [facility] Comment on above: Performed By: #### 1 4959-1 #### ALENA Paredes ([id number]) [facility] ([facility]) [address] [place] [address] Comprehensive metabolic 2000 panelon 02-07-2024 Albumin BCP dye [Mass/Vol] 4.0 g/dL Normal 3.4-5.0 [facility] Comment on above: Performed By: #### 2 4323-8 #### MAGGI PARNELL ([id number]) [facility] ([facility]) [address] [place] [address] 24062 ALP [Catalytic activity/Vol] 77 U/L Normal 33-136 [facility] Comment on above: Performed By: #### 2 4323-8 #### MAGGI PARNELL ([id number]) [facility] ([facility]) [address] [place] [address] 72885 ALT With P-5'-P [Catalytic activity/Vol] 7 U/L Low 10-52 [facility] Comment on above: Result Comment: Twila ents treated with Sulfasalazine may generate falsely decreased results for ALT. Performed By: #### 2 4323-8 #### MAGGI PARNELL ([id number]) [facility] ([facility]) [address] [place] [address] 24505 Anion gap [Moles/Vol] 12 mmol/L Normal 10-20 [facility] Comment on above: Performed By: #### 2 4323-8 #### MAGGI PARNLEL ([id number]) [facility] ([facility]) [address] [place] [address] 17242 AST With P-5'-P [Catalytic activity/Vol] 14 U/L Normal 9-39 [facility] Comment on above: Performed By: #### 2 4323-8 #### MAGGI PARNELL ([id number]) [facility] ([facility]) [address] [place] [address] 19302 Bilirubin [Mass/Vol] 0.4 mg/dL Normal 0.0-1.2 [facility] Comment on above: Performed By: #### 2 4323-8 #### MAGGI PARNELL ([id number]) [facility] ([facility]) [address] [place] [address] Calcium [Mass/Vol] 9.2 mg/dL Normal 8.6-10.3 [facility] Comment on above: Performed By: #### 2 4323-8 #### MAGGI PARNELL ([id number]) [facility] ([facility]) [address] [place] [address] Chloride [Moles/Vol] 105 mmol/L Normal 98-107 [facility] Comment on above: Performed By: #### 2 4323-8 #### MAGGI PARNELL ([id number]) [facility] ([facility]) [address] [place] [address] 04378 CO2 [Moles/Vol] 29 mmol/L Normal 21-32 [facility] Comment on above: Performed By: #### 2 4323-8 #### MAGGI PARNELL ([id number]) [facility] ([facility]) [address] [place] [address] 45753 Creatinine [Mass/Vol] 1.92 mg/dL High 0.50-1.30 [facility] Comment on above: Performed By: #### 2 4323-8 #### MAGGI PARNELL ([id number]) [facility] ([facility]) [address] [place] [address] [id number] Glomerular filtration rate/1.73 sq M.predicted 35 mL/min/1.73m*2 Low >60 [facility] Comment on above: Result Comment: Calc ulations of estimated GFR are performed using the 2020 CKD-EPI Study Refit equation without the race variable for the IDMS-Traceable creatinine methods. https://jasn.asnjournals.org/content//ASN.20 97635650 Performed By: #### 2 4323-8 #### MAGGI PARNELL ([id number]) [facility] ([facility]) [address] [place] [address] [id number] Glucose [Mass/Vol] 81 mg/dL Normal 74-99 [facility] Comment on above: Performed By: #### 2 4323-8 #### MAGGI PARNELL ([id number]) [facility] ([facility]) [facility] [place] [address] Potassium [Moles/Vol] 4.5 mmol/L Normal 3.5-5.3 [facility] Comment on above: Performed By: #### [id number] 4323-8 #### MAGGI PARNELL ([id number]) [facility] ([facility]) [address] [place] [address] [id number] Protein [Mass/Vol] 6.4 g/dL Normal 6.4-8.2 [facility] Comment on above: Performed By: #### [id number] #### MAGGI PARNELL ([id number]) [facility] ([facility]) [address] [place] [address] [id number] Sodium [Moles/Vol] 141 mmol/L Normal 136-145 [facility] Comment on above: Performed By: #### 2 4323-8 #### MAGGI PARNELL ([id number]) [facility] ([facility]) [address] [place] [address] [id number] Urea nitrogen [Mass/Vol] 29 mg/dL High 6-23 [facility] Comment on above: Performed By: #### 2 4323-8 #### MAGGI PARNELL ([id number]) [facility] ([facility]) [address] [place] [address] [phone] Basophil percentageOrdered B y: Ryley Jeter on 12-15-2023 Chloride [Moles/Vol] 109 mmol/L 98-107 [facility] Glucose [Mass/Vol] 126 mg/dL 74-106 [facility] Comment on above: Fasting Glucose resu lt greater than or equal to 126 mg/dL suggests DIABETES MELLITUS per A.D.A. criteria. Potassium [Moles/Vol] 4.1 mmol/L 3.5-5.1 [facility] Sodium [Moles/Vol] 140 mmol/L 136-145 [facility] Laboratory - Chemistry and C hemistry - challengeOrdered By: Ryley Jeter on 12-15-2023 CO2 [Moles/Vol] 29.0 mmol/L 21.0-32.0 [facility] Urea nitrogen/Creatinine [Mass ratio] 14.9 mg/mg 10-20 [facility] No Panel InformationOrdered By: Ryley Jeter on 12-15-2023 Estimated GFR (MDRD) Amer 45 mL/min >60 [facility] Comment on above: GFR Calc Estimated GFR (MDRD) Non-Af Amer 37 mL/min >60 [facility] Comment on above: Non- GFR Calc Serum or plasma calcium nikkie urement (mass/volume)Ordered By: Ryley Jeter on 12-15-2023 Calcium [Mass/Vol] 9.4 mg/dL 8.5-10.1 [facility] Serum or plasma creatinine m easurement (mass/volume)Ordered By: Ryley Jeter on 12-15-2023 Creatinine [Mass/Vol] 1.88 mg/dL 0.70-1.30 [facility] Comment on above: The validity of the calculated GFR & GFRAA in patients over 70 years has not been determined. Clinical correlation is essential. Serum or plasma urea nitroge n measurement (mass/volume)Ordered By: Ryley Jeter on 12-15-2023 Urea nitrogen [Mass/Vol] 28 mg/dL 7-18 [facility] Thin prep Papanicolaou smear with manual screeningOrdered By: Ryley Jeter on 12-15-2023 Thin prep Papanicolaou smear with manual screening 2 5-15 [facility] APTTOrdered By: Burton lr on 12-01-2023 aPTT Coag (Bld) [Time] 35 s High [facility] Basic metabolic 2000 panelon 12-01-2023 Anion gap [Moles/Vol] 10 mmol/L 10 - 2 0 mmol/L [facility] Calcium [Mass/Vol] 8.9 mg/dL 8.4 - 10. 2 mg/dL [facility] Chloride [Moles/Vol] 105 mmol/L 98 - 10 8 mmol/L [facility] Creatinine [Mass/Vol] 1.76 mg/dL High 0.80 - 1.30 mg/dL [facility] GFR/1.73 sq M.predicted CKD-EPI (S/P/Bld) [Vol rate/Area] 39 Low - PINF [facility] Glucose [Mass/Vol] 82 mg/dL 65 - 99 mg/dL [facility] HCO3 [Moles/Vol] 30 mmol/L 21 - 32 mmol/L [facility] Interpretation and review of laboratory results Abnormal [facility] Potassium [Moles/Vol] 3.4 mmol/L Low 3.5 - 5.1 mmol/L [facility] Sodium [Moles/Vol] 142 mmol/L 135 - 145 mmol/L [facility] Urea nitrogen [Mass/Vol] 26 mg/dL High 8 - 25 mg/d L [facility] Urea nitrogen/Creatinine [Mass ratio] 14.8 mg/mg 10.0 - 20.0 [facility] CBC Auto Differentialon 11-03 Basophils (Bld) [#/Vol] 0.06 10*3/uL [facility] Basophils/100 WBC (Bld) 0.7 % [facility] Eosinophils (Bld) [#/Vol] 0.61 10*3/uL High [facility] Eosinophils/100 WBC (Bld) 7.4 % [facility] Erythrocyte distribution width (RBC) [Entitic vol] 13.3 % 11.6 - 14.8 % [facility] Hematocrit (Bld) [Volume fraction] 36.6 % Low 41.0 - 53.0 % [facility] Hemoglobin (Bld) [Mass/Vol] 12.0 g/dL Low 13.5 - 17.5 g/dL [facility] Immature granulocytes (Bld) [#/Vol] 0.02 10*3/uL [facility] Immature granulocytes/100 WBC (Bld) 0.20 % [facility] Interpretation and review of laboratory results Abnormal [facility] Lymphocytes (Bld) [#/Vol] 1.32 10*3/uL [facility] Lymphocytes/100 WBC (Bld) 16.1 % [facility] MCH (RBC) [Entitic mass] 30.5 pg 26. 0 - 34.0 pg [facility] MCHC (RBC) [Mass/Vol] 32.8 g/dL 31.0 - 37.0 g/dL [facility] MCV (RBC) [Entitic vol] 92.9 fL 80.0 - 100.0 fL [facility] Monocytes (Bld) [#/Vol] 0.96 10*3/uL High [facility] Monocytes/100 WBC (Bld) 11.7 % [facility] Neutrophils (Bld) [#/Vol] 5.25 10*3/uL [facility] Neutrophils/100 WBC (Bld) 63.9 % [facility] Nucleated RBC (Bld) [#/Vol] 0.00 10*3/uL [facility] Nucleated RBC/100 WBC (Bld) [Ratio] 0.0 % [facility] Platelet mean volume (Bld) [Entitic vol] 12.4 fL 9.4 - 12.4 fL [facility] Platelets (Bld) [#/Vol] 115 10*3/uL Low [facility] RBC (Bld) [#/Vol] 3.94 10*6/uL Low [facility] WBC (Bld) [#/Vol] 8.22 10*3/uL [facility] Glucose (Bld) [Mass/Vol]on 0 12-01-2023 Glucose [Mass/Vol] 151 mg/dL High 65 - 99 mg/dL [facility] Interpretation and review of laboratory results Abnormal [facility] Glucose [Mass/Vol] 472 mg/dL Critically high 65 - 99 mg/d L [facility] Interpretation and review of laboratory results Abnormal [facility] Glucose [Mass/Vol] 454 mg/dL Critically high 65 - 99 mg/d L [facility] Interpretation and review of laboratory results Abnormal [facility] Glucose [Mass/Vol] 87 mg/dL 65 - 99 mg/dL [facility] Interpretation and review of laboratory results Normal [facility] Magnesium Levelon 12-01-2023 Magnesium [Mass/Vol] 2.1 mg/dL 1.6 - 2 .4 mg/dL [facility] Magnesium [Mass/Vol]on 12-01 Interpretation and review of laboratory results Normal [facility] aPTT Coag (Bld) [Time]Ordere d By: Burton Zendejas on 12-01-2023 Interpretation and review of laboratory results Abnormal [facility] APTTOrdered By: Zoila Marcano e on 11-30-2023 aPTT Coag (Bld) [Time] 35 s High [facility] Basic metabolic 2000 panelon 11-30-2023 Anion gap [Moles/Vol] 9 mmol/L Low 10 - 2 0 mmol/L [facility] Calcium [Mass/Vol] 8.6 mg/dL 8.4 - 10. 2 mg/dL [facility] Chloride [Moles/Vol] 104 mmol/L 98 - 10 8 mmol/L [facility] Creatinine [Mass/Vol] 1.77 mg/dL High 0.80 - 1.30 mg/dL [facility] GFR/1.73 sq M.predicted CKD-EPI (S/P/Bld) [Vol rate/Area] 39 Low - PINF [facility] Glucose [Mass/Vol] 322 mg/dL High 65 - 99 mg/dL [facility] HCO3 [Moles/Vol] 29 mmol/L 21 - 32 mmol/L [facility] Interpretation and review of laboratory results Abnormal [facility] Potassium [Moles/Vol] 3.8 mmol/L 3.5 - 5.1 mmol/L [facility] Sodium [Moles/Vol] 138 mmol/L 135 - 145 mmol/L [facility] Urea nitrogen [Mass/Vol] 30 mg/dL High 8 - 25 mg/d L [facility] Urea nitrogen/Creatinine [Mass ratio] 16.9 mg/mg 10.0 - 20.0 [facility] CBC Auto Differentialon 11-03 Basophils (Bld) [#/Vol] 0.08 10*3/uL [facility] Basophils/100 WBC (Bld) 0.9 % [facility] Eosinophils (Bld) [#/Vol] 0.71 10*3/uL High [facility] Eosinophils/100 WBC (Bld) 8.0 % [facility] Erythrocyte distribution width (RBC) [Entitic vol] 13.5 % 11.6 - 14.8 % [facility] Hematocrit (Bld) [Volume fraction] 35.9 % Low 41.0 - 53.0 % [facility] Hemoglobin (Bld) [Mass/Vol] 11.8 g/dL Low 13.5 - 17.5 g/dL [facility] Immature granulocytes (Bld) [#/Vol] 0.03 10*3/uL [facility] Immature granulocytes/100 WBC (Bld) 0.30 % [facility] Interpretation and review of laboratory results Abnormal [facility] Lymphocytes (Bld) [#/Vol] 1.18 10*3/uL [facility] Lymphocytes/100 WBC (Bld) 13.3 % [facility] MCH (RBC) [Entitic mass] 30.5 pg 26. 0 - 34.0 pg [facility] MCHC (RBC) [Mass/Vol] 32.9 g/dL 31.0 - 37.0 g/dL [facility] MCV (RBC) [Entitic vol] 92.8 fL 80.0 - 100.0 fL [facility] Monocytes (Bld) [#/Vol] 0.84 10*3/uL [facility] Monocytes/100 WBC (Bld) 9.4 % [facility] Neutrophils (Bld) [#/Vol] 6.05 10*3/uL [facility] Neutrophils/100 WBC (Bld) 68.1 % [facility] Nucleated RBC (Bld) [#/Vol] 0.00 10*3/uL [facility] Nucleated RBC/100 WBC (Bld) [Ratio] 0.0 % [facility] Platelet mean volume (Bld) [Entitic vol] 12.1 fL 9.4 - 12.4 fL [facility] Platelets (Bld) [#/Vol] 120 10*3/uL Low [facility] RBC (Bld) [#/Vol] 3.87 10*6/uL Low [facility] WBC (Bld) [#/Vol] 8.89 10*3/uL [facility] CT Chest WO contraston 11-30 GE RIS GE RIS [facility] CT Chest WO contrastOrdered By: Alice Kaminski on 11-30-2023 [facility] Work Phone: Echocardiogram completeon Aortic valve area 2.16903 cm [facility] AV mean gradient 3.98627 mmHg [facility] AV peak gradient 6.69698 mmHg [facility] EF 63.3016 % [facility] FUJI SYNAPSE CV [facility] Electrocardiogram, 12-leadon 11-30-2023 Atrial Rate 97 BPM [facility] P Carrier 77 degrees [facility] P-R Interval 152 ms [facility] Q-T Interval 376 ms [facility] QRS Duration 76 ms [facility] QTC Calculation (Bezet) 477 ms [facility] R Carrier 72 degrees [facility] T Carrier 51 degrees [facility] Ventricular Rate 97 BPM [facility] th MUSE [facility] Glucose (Bld) [Mass/Vol]on 0 11-30-2023 Glucose [Mass/Vol] 190 mg/dL High 65 - 99 mg/dL [facility] Interpretation and review of laboratory results Abnormal [facility] Glucose [Mass/Vol] 103 mg/dL High 65 - 99 mg/dL [facility] Interpretation and review of laboratory results Abnormal [facility] Magnesium Levelon 11-30-2023 Magnesium [Mass/Vol] 2.2 mg/dL 1.6 - 2 .4 mg/dL [facility] Magnesium [Mass/Vol]on 11-30 Interpretation and review of laboratory results Normal [facility] No Panel Informationon 11-30 [facility] aPTT Coag (Bld) [Time]Ordere d By: Zoila Ruiz on 11-30-2023 Interpretation and review of laboratory results Abnormal [facility] APTTon 11-29-2023 aPTT Coag (Bld) [Time] 38 s High [facility] APTT Heparin Coverageon 11-02 aPTT Coag (Bld) [Time] 98 s High [facility] Interpretation and review of laboratory results Abnormal [facility] APTT Heparin CoverageOrdered By: Tania Escobedo on 11-29-2023 aPTT Coag (Bld) [Time] Critically high [facility] Interpretation and review of laboratory results Abnormal [facility] Bacteria identified Aer cx N om (Sput)Ordered By: Franco Armenta on 11-29-2023 Microscopic observation Gram stain Nom (Sput) Few WBC [facility] Microscopic observation Gram stain Nom (Sput) Few Epithelial Cells [facility] ealt Microscopic observation Gram stain Nom (Sput) Positive [facility] Microscopic observation Gram stain Nom (Sput) Rare Mixed [facility] Basic metabolic 2000 panelon 11-29-2023 Anion gap [Moles/Vol] 7 mmol/L Low 10 - 2 0 mmol/L [facility] Calcium [Mass/Vol] 8.4 mg/dL 8.4 - 10. 2 mg/dL [facility] Chloride [Moles/Vol] 106 mmol/L 98 - 10 8 mmol/L [facility] Creatinine [Mass/Vol] 1.91 mg/dL High 0.80 - 1.30 mg/dL [facility] GFR/1.73 sq M.predicted CKD-EPI (S/P/Bld) [Vol rate/Area] 35 Low - PINF [facility] Glucose [Mass/Vol] 234 mg/dL High 65 - 99 mg/dL [facility] HCO3 [Moles/Vol] 28 mmol/L 21 - 32 mmol/L [facility] Interpretation and review of laboratory results Abnormal [facility] Potassium [Moles/Vol] 4.0 mmol/L 3.5 - 5.1 mmol/L [facility] Sodium [Moles/Vol] 137 mmol/L 135 - 145 mmol/L [facility] Urea nitrogen [Mass/Vol] 34 mg/dL High 8 - 25 mg/d L [facility] Urea nitrogen/Creatinine [Mass ratio] 17.8 mg/mg 10.0 - 20.0 [facility] CBC Auto Differentialon 11-02 Basophils (Bld) [#/Vol] 0.10 10*3/uL [facility] Basophils/100 WBC (Bld) 0.9 % [facility] Eosinophils (Bld) [#/Vol] 0.48 10*3/uL [facility] Eosinophils/100 WBC (Bld) 4.4 % [facility] Erythrocyte distribution width (RBC) [Entitic vol] 14.0 % 11.6 - 14.8 % [facility] Hematocrit (Bld) [Volume fraction] 32.8 % Low 41.0 - 53.0 % [facility] Hemoglobin (Bld) [Mass/Vol] 10.7 g/dL Low 13.5 - 17.5 g/dL [facility] Immature granulocytes (Bld) [#/Vol] 0.05 10*3/uL [facility] Immature granulocytes/100 WBC (Bld) 0.50 % [facility] Interpretation and review of laboratory results Abnormal [facility] Lymphocytes (Bld) [#/Vol] 1.92 10*3/uL [facility] Lymphocytes/100 WBC (Bld) 17.7 % [facility] MCH (RBC) [Entitic mass] 30.6 pg 26. 0 - 34.0 pg [facility] MCHC (RBC) [Mass/Vol] 32.6 g/dL 31.0 - 37.0 g/dL [facility] MCV (RBC) [Entitic vol] 93.7 fL 80.0 - 100.0 fL [facility] Monocytes (Bld) [#/Vol] 1.02 10*3/uL High [facility] Monocytes/100 WBC (Bld) 9.4 % [facility] Neutrophils (Bld) [#/Vol] 7.26 10*3/uL High [facility] Neutrophils/100 WBC (Bld) 67.1 % [facility] Nucleated RBC (Bld) [#/Vol] 0.00 10*3/uL [facility] Nucleated RBC/100 WBC (Bld) [Ratio] 0.0 % [facility] Platelet mean volume (Bld) [Entitic vol] 12.1 fL 9.4 - 12.4 fL [facility] Platelets (Bld) [#/Vol] 130 10*3/uL Low [facility] RBC (Bld) [#/Vol] 3.50 10*6/uL Low [facility] WBC (Bld) [#/Vol] 10.83 10*3/uL [facility] CT Chest WO contraston 11-29 Radiology Study observation (narrative) [facility] Glucose (Bld) [Mass/Vol]on 0 11-29-2023 Glucose [Mass/Vol] 174 mg/dL High 65 - 99 mg/dL [facility] Interpretation and review of laboratory results Abnormal [facility] Glucose [Mass/Vol] 266 mg/dL High 65 - 99 mg/dL [facility] Interpretation and review of laboratory results Abnormal [facility] HbA1c (Bld) [Mass fraction]O rdered By: Lidia Ruff on 11-29-2023 Average glucose Estimated from glycated hemoglobin (Bld) [Mass/Vol] 174 mg/dL High 68 - 114 mg/dL [facility] Interpretation and review of laboratory results Abnormal [facility] Hemoglobin [id number] By: Davina Ruff on 11-29-2023 HbA1c (Bld) [Mass fraction] 7.7 % High 4.0 - 5.6 % [facility] Magnesium Levelon 11-29-2023 Magnesium [Mass/Vol] 2.2 mg/dL 1.6 - 2 .4 mg/dL [facility] Magnesium [Mass/Vol]on 11-29 Interpretation and review of laboratory results Normal [facility] No Panel Informationon 11-29 [facility] Sputum Aerobic CultureOrdere d By: Franco Armenta on 11-29-2023 Bacteria identified Aer cx Nom (Sput) Normal Kyler After 48 Hours [facility] aPTT Coag (Bld) [Time]on Interpretation and review of laboratory results Abnormal [facility] APTTon 11-28-2023 aPTT Coag (Bld) [Time] 102 s High [facility] Basic metabolic 2000 panelon 11-28-2023 Anion gap [Moles/Vol] 13 mmol/L 10 - 2 0 mmol/L [facility] Calcium [Mass/Vol] 9.0 mg/dL 8.4 - 10. 2 mg/dL [facility] Chloride [Moles/Vol] 110 mmol/L High 98 - 10 8 mmol/L [facility] Creatinine [Mass/Vol] 1.99 mg/dL High 0.80 - 1.30 mg/dL [facility] GFR/1.73 sq M.predicted CKD-EPI (S/P/Bld) [Vol rate/Area] 34 Low - PINF [facility] Glucose [Mass/Vol] 183 mg/dL High 65 - 99 mg/dL [facility] HCO3 [Moles/Vol] 23 mmol/L 21 - 32 mmol/L [facility] Interpretation and review of laboratory results Abnormal [facility] Potassium [Moles/Vol] 4.3 mmol/L 3.5 - 5.1 mmol/L [facility] Sodium [Moles/Vol] 142 mmol/L 135 - 145 mmol/L [facility] Urea nitrogen [Mass/Vol] 33 mg/dL High 8 - 25 mg/d L [facility] Urea nitrogen/Creatinine [Mass ratio] 16.6 mg/mg 10.0 - 20.0 [facility] Anion gap [Moles/Vol] 9 mmol/L Low 10 - 2 0 mmol/L [facility] Calcium [Mass/Vol] 8.8 mg/dL 8.4 - 10. 2 mg/dL [facility] Chloride [Moles/Vol] 111 mmol/L High 98 - 10 8 mmol/L [facility] Creatinine [Mass/Vol] 2.03 mg/dL High 0.80 - 1.30 mg/dL [facility] GFR/1.73 sq M.predicted CKD-EPI (S/P/Bld) [Vol rate/Area] 33 Low - PINF [facility] Glucose [Mass/Vol] 160 mg/dL High 65 - 99 mg/dL [facility] HCO3 [Moles/Vol] 27 mmol/L 21 - 32 mmol/L [facility] Interpretation and review of laboratory results Abnormal [facility] Potassium [Moles/Vol] 4.3 mmol/L 3.5 - 5.1 mmol/L [facility] Sodium [Moles/Vol] 143 mmol/L 135 - 145 mmol/L [facility] Urea nitrogen [Mass/Vol] 34 mg/dL High 8 - 25 mg/d L [facility] Urea nitrogen/Creatinine [Mass ratio] 16.7 mg/mg 10.0 - 20.0 [facility] Anion gap [Moles/Vol] 10 mmol/L 10 - 2 0 mmol/L [facility] Calcium [Mass/Vol] 8.7 mg/dL 8.4 - 10. 2 mg/dL [facility] Chloride [Moles/Vol] 112 mmol/L High 98 - 10 8 mmol/L [facility] Creatinine [Mass/Vol] 2.03 mg/dL High 0.80 - 1.30 mg/dL [facility] GFR/1.73 sq M.predicted CKD-EPI (S/P/Bld) [Vol rate/Area] 33 Low - PINF [facility] Glucose [Mass/Vol] 119 mg/dL High 65 - 99 mg/dL [facility] HCO3 [Moles/Vol] 24 mmol/L 21 - 32 mmol/L [facility] Interpretation and review of laboratory results Abnormal [facility] Potassium [Moles/Vol] 3.9 mmol/L 3.5 - 5.1 mmol/L [facility] Sodium [Moles/Vol] 142 mmol/L 135 - 145 mmol/L [facility] Urea nitrogen [Mass/Vol] 35 mg/dL High 8 - 25 mg/d L [facility] Urea nitrogen/Creatinine [Mass ratio] 17.2 mg/mg 10.0 - 20.0 [facility] Beta hydroxybutyrate [Moles/ Vol]on 11-28-2023 Interpretation and review of laboratory results Abnormal [facility] Interpretation and review of laboratory results Abnormal [facility] Beta-Hydroxybutyrateon 11-28 Beta hydroxybutyrate [Moles/Vol] 0.8 mmol/L High 0.0 - 0.3 mmol/L [facility] Beta hydroxybutyrate [Moles/Vol] 0.4 mmol/L High 0.0 - 0.3 mmol/L [facility] Beta hydroxybutyrate [Moles/Vol] 0.6 mmol/L High 0.0 - 0.3 mmol/L [facility] CBC Auto Differentialon 11-02 Basophils (Bld) [#/Vol] 0.07 10*3/uL [facility] Basophils/100 WBC (Bld) 0.5 % [facility] Eosinophils (Bld) [#/Vol] 0.09 10*3/uL [facility] Eosinophils/100 WBC (Bld) 0.6 % [facility] Erythrocyte distribution width (RBC) [Entitic vol] 14.3 % 11.6 - 14.8 % [facility] Hematocrit (Bld) [Volume fraction] 33.6 % Low 41.0 - 53.0 % [facility] Hemoglobin (Bld) [Mass/Vol] 10.8 g/dL Low 13.5 - 17.5 g/dL [facility] Immature granulocytes (Bld) [#/Vol] 0.05 10*3/uL [facility] Immature granulocytes/100 WBC (Bld) 0.40 % [facility] Interpretation and review of laboratory results Abnormal [facility] Lymphocytes (Bld) [#/Vol] 2.69 10*3/uL [facility] Lymphocytes/100 WBC (Bld) 18.9 % [facility] MCH (RBC) [Entitic mass] 30.4 pg 26. 0 - 34.0 pg [facility] MCHC (RBC) [Mass/Vol] 32.1 g/dL 31.0 - 37.0 g/dL [facility] MCV (RBC) [Entitic vol] 94.6 fL 80.0 - 100.0 fL [facility] Monocytes (Bld) [#/Vol] 1.26 10*3/uL High [facility] Monocytes/100 WBC (Bld) 8.9 % [facility] Neutrophils (Bld) [#/Vol] 10.06 10*3/uL High [facility] Neutrophils/100 WBC (Bld) 70.7 % [facility] Nucleated RBC (Bld) [#/Vol] 0.00 10*3/uL [facility] Nucleated RBC/100 WBC (Bld) [Ratio] 0.0 % [facility] Platelet mean volume (Bld) [Entitic vol] 11.9 fL 9.4 - 12.4 fL [facility] Platelets (Bld) [#/Vol] 151 10*3/uL [facility] RBC (Bld) [#/Vol] 3.55 10*6/uL Low [facility] WBC (Bld) [#/Vol] 14.22 10*3/uL High [facility] CRP [Mass/Vol]on 11-28-2023 Interpretation and review of laboratory results Abnormal [facility] CRP, Inflammationon 11-28-19 CRP [Mass/Vol] 11.6 mg/L High NINF - 10.0 mg/L [facility] D-Dimer, Quantitativeon 11-02 Fibrin D-dimer FEU (PPP) [Mass/Vol] 1.32 High [facility] Interpretation and review of laboratory results Abnormal [facility] Glucose (Bld) [Mass/Vol]on 0 11-28-2023 Glucose [Mass/Vol] 222 mg/dL High 65 - 99 mg/dL [facility] Interpretation and review of laboratory results Abnormal [facility] Glucose [Mass/Vol] 182 mg/dL High 65 - 99 mg/dL [facility] Interpretation and review of laboratory results Abnormal [facility] Glucose [Mass/Vol] 286 mg/dL High 65 - 99 mg/dL [facility] Interpretation and review of laboratory results Abnormal [facility] Glucose [Mass/Vol] 209 mg/dL High 65 - 99 mg/dL [facility] Interpretation and review of laboratory results Abnormal [facility] Glucose [Mass/Vol] 167 mg/dL High 65 - 99 mg/dL [facility] Interpretation and review of laboratory results Abnormal [facility] LDHon 11-28-2023 LDH Lactate to pyruvate reaction [Catalytic activity/Vol] 299 U/L High 100 - 250 U/L [facility] Magnesium Levelon 11-28-2023 Magnesium [Mass/Vol] 2.5 mg/dL High 1.6 - 2 .4 mg/dL [facility] Magnesium [Mass/Vol] 2.6 mg/dL High 1.6 - 2 .4 mg/dL [facility] Magnesium [Mass/Vol] 2.2 mg/dL 1.6 - 2 .4 mg/dL [facility] Magnesium [Mass/Vol]on 11-28 Interpretation and review of laboratory results Abnormal [facility] Interpretation and review of laboratory results Abnormal [facility] Interpretation and review of laboratory results Normal [facility] No Panel Informationon 11-28 Interpretation and review of laboratory results Abnormal [facility] Phosphate [Mass/Vol]on 11-28 Interpretation and review of laboratory results Normal [facility] Interpretation and review of laboratory results Abnormal [facility] Interpretation and review of laboratory results Abnormal [facility] Phosphoruson 11-28-2023 Phosphate [Mass/Vol] 3.6 mg/dL 2.3 - 3 .7 mg/dL [facility] Phosphate [Mass/Vol] 3.8 mg/dL High 2.3 - 3 .7 mg/dL [facility] Phosphate [Mass/Vol] 3.8 mg/dL High 2.3 - 3 .7 mg/dL [facility] aPTT Coag (Bld) [Time]on Interpretation and review of laboratory results Abnormal [facility] APTTOrdered By: Becky Mercado on 11-27-2023 aPTT Coag (Bld) [Time] 78 s High [facility] APTTOrdered By: Anjali Hartmann on 11-27-2023 aPTT Coag (Bld) [Time] 66 s High [facility] APTT Heparin CoverageOrdered By: Yesenia Cardona on 11-27-2023 aPTT Coag (Bld) [Time] 87 s High [facility] Interpretation and review of laboratory results Abnormal [facility] Basic metabolic 2000 panelon 11-27-2023 Anion gap [Moles/Vol] 9 mmol/L Low 10 - 2 0 mmol/L [facility] Calcium [Mass/Vol] 8.7 mg/dL 8.4 - 10. 2 mg/dL [facility] Chloride [Moles/Vol] 113 mmol/L High 98 - 10 8 mmol/L [facility] Creatinine [Mass/Vol] 2.24 mg/dL High 0.80 - 1.30 mg/dL [facility] GFR/1.73 sq M.predicted CKD-EPI (S/P/Bld) [Vol rate/Area] 29 Low - PINF [facility] Glucose [Mass/Vol] 168 mg/dL High 65 - 99 mg/dL [facility] HCO3 [Moles/Vol] 25 mmol/L 21 - 32 mmol/L [facility] Interpretation and review of laboratory results Abnormal [facility] Potassium [Moles/Vol] 3.7 mmol/L 3.5 - 5.1 mmol/L [facility] Sodium [Moles/Vol] 143 mmol/L 135 - 145 mmol/L [facility] Urea nitrogen [Mass/Vol] 37 mg/dL High 8 - 25 mg/d L [facility] Urea nitrogen/Creatinine [Mass ratio] 16.5 mg/mg 10.0 - 20.0 [facility] Anion gap [Moles/Vol] 9 mmol/L Low 10 - 2 0 mmol/L [facility] Calcium [Mass/Vol] 9.0 mg/dL 8.4 - 10. 2 mg/dL [facility] Chloride [Moles/Vol] 113 mmol/L High 98 - 10 8 mmol/L [facility] Creatinine [Mass/Vol] 2.24 mg/dL High 0.80 - 1.30 mg/dL [facility] GFR/1.73 sq M.predicted CKD-EPI (S/P/Bld) [Vol rate/Area] 29 Low - PINF [facility] Glucose [Mass/Vol] 153 mg/dL High 65 - 99 mg/dL [facility] HCO3 [Moles/Vol] 24 mmol/L 21 - 32 mmol/L [facility] Interpretation and review of laboratory results Abnormal [facility] Potassium [Moles/Vol] 4.0 mmol/L 3.5 - 5.1 mmol/L [facility] Sodium [Moles/Vol] 142 mmol/L 135 - 145 mmol/L [facility] Urea nitrogen [Mass/Vol] 39 mg/dL High 8 - 25 mg/d L [facility] Urea nitrogen/Creatinine [Mass ratio] 17.4 mg/mg 10.0 - 20.0 [facility] Anion gap [Moles/Vol] 13 mmol/L 10 - 2 0 mmol/L [facility] Calcium [Mass/Vol] 9.3 mg/dL 8.4 - 10. 2 mg/dL [facility] Chloride [Moles/Vol] 112 mmol/L High 98 - 10 8 mmol/L [facility] Creatinine [Mass/Vol] 2.26 mg/dL High 0.80 - 1.30 mg/dL [facility] GFR/1.73 sq M.predicted CKD-EPI (S/P/Bld) [Vol rate/Area] 29 Low - PINF [facility] Glucose [Mass/Vol] 114 mg/dL High 65 - 99 mg/dL [facility] HCO3 [Moles/Vol] 23 mmol/L 21 - 32 mmol/L [facility] Interpretation and review of laboratory results Abnormal [facility] Potassium [Moles/Vol] 3.7 mmol/L 3.5 - 5.1 mmol/L [facility] Sodium [Moles/Vol] 144 mmol/L 135 - 145 mmol/L [facility] Urea nitrogen [Mass/Vol] 42 mg/dL High 8 - 25 mg/d L [facility] Urea nitrogen/Creatinine [Mass ratio] 18.6 mg/mg 10.0 - 20.0 [facility] Anion gap [Moles/Vol] 13 mmol/L 10 - 2 0 mmol/L [facility] Calcium [Mass/Vol] 9.2 mg/dL 8.4 - 10. 2 mg/dL [facility] Chloride [Moles/Vol] 111 mmol/L High 98 - 10 8 mmol/L [facility] Creatinine [Mass/Vol] 2.35 mg/dL High 0.80 - 1.30 mg/dL [facility] GFR/1.73 sq M.predicted CKD-EPI (S/P/Bld) [Vol rate/Area] 27 Low - PINF [facility] Glucose [Mass/Vol] 340 mg/dL High 65 - 99 mg/dL [facility] HCO3 [Moles/Vol] 21 mmol/L 21 - 32 mmol/L [facility] Interpretation and review of laboratory results Abnormal [facility] Potassium [Moles/Vol] 3.4 mmol/L Low 3.5 - 5.1 mmol/L [facility] Sodium [Moles/Vol] 142 mmol/L 135 - 145 mmol/L [facility] Urea nitrogen [Mass/Vol] 42 mg/dL High 8 - 25 mg/d L [facility] Urea nitrogen/Creatinine [Mass ratio] 17.9 mg/mg 10.0 - 20.0 [facility] Basic metabolic 2000 panelOr dered By: Moody Hughes on 11-27-2023 Anion gap [Moles/Vol] 13 mmol/L 10 - 2 0 mmol/L [facility] Calcium [Mass/Vol] 8.9 mg/dL 8.4 - 10. 2 mg/dL [facility] Chloride [Moles/Vol] 107 mmol/L 98 - 10 8 mmol/L [facility] Creatinine [Mass/Vol] 2.24 mg/dL High 0.80 - 1.30 mg/dL [facility] GFR/1.73 sq M.predicted CKD-EPI (S/P/Bld) [Vol rate/Area] 29 Low - PINF [facility] Glucose [Mass/Vol] 523 mg/dL Critically high 65 - 99 mg/d L [facility] HCO3 [Moles/Vol] 21 mmol/L 21 - 32 mmol/L [facility] Interpretation and review of laboratory results Abnormal [facility] Potassium [Moles/Vol] 4.6 mmol/L 3.5 - 5.1 mmol/L [facility] Sodium [Moles/Vol] 136 mmol/L 135 - 145 mmol/L [facility] Urea nitrogen [Mass/Vol] 42 mg/dL High 8 - 25 mg/d L [facility] Urea nitrogen/Creatinine [Mass ratio] 18.8 mg/mg 10.0 - 20.0 [facility] Beta hydroxybutyrate [Moles/ Vol]on 11-27-2023 Interpretation and review of laboratory results Normal [facility] Interpretation and review of laboratory results Normal [facility] Interpretation and review of laboratory results Normal [facility] Interpretation and review of laboratory results Normal [facility] Beta-Hydroxybutyrateon 11-27 Beta hydroxybutyrate [Moles/Vol] mmol/L 0.0 - 0.3 mmol/L [facility] Beta hydroxybutyrate [Moles/Vol] 0.2 mmol/L 0.0 - 0.3 mmol/L [facility] Beta hydroxybutyrate [Moles/Vol] mmol/L 0.0 - 0.3 mmol/L [facility] Beta hydroxybutyrate [Moles/Vol] 0.2 mmol/L 0.0 - 0.3 mmol/L [facility] Beta hydroxybutyrate [Moles/Vol] 1.9 mmol/L High 0.0 - 0.3 mmol/L [facility] CBC Auto Differentialon 11-02 Basophils (Bld) [#/Vol] 0.04 10*3/uL [facility] Basophils/100 [facility]Bld) 0[facility] [#/Vol] 0.00 10*3/uL [facility] Eosinophils/100 WBC (Bld) 0.0 % [facility] Erythrocyte distribution width (RBC) [Entitic vol] 14.0 % 11.6 - 14.8 % [facility] Hematocrit (Bld) [Volume fraction] 34.0 % Low 41.0 - 53.0 % [facility] Hemoglobin (Bld) [Mass/Vol] 11.1 g/dL Low 13.5 - 17.5 g/dL [facility] Immature granulocytes (Bld) [#/Vol] 0.11 10*3/uL [facility] Immature granulocytes/100 WBC (Bld) 0.50 % [facility] Interpretation and review of laboratory results Abnormal [facility] Lymphocytes (Bld) [#/Vol] 0.91 10*3/uL [facility] Lymphocytes/100 WBC (Bld) 3.8 % [facility] MCH (RBC) [Entitic mass] 30.9 pg 26. 0 - 34.0 pg [facility] MCHC (RBC) [Mass/Vol] 32.6 g/dL 31.0 - 37.0 g/dL [facility] MCV (RBC) [Entitic vol] 94.7 fL 80.0 - 100.0 fL [facility] Monocytes (Bld) [#/Vol] 1.21 10*3/uL [facility] Monocytes/100 WBC (Bld) 5.1 % [facility] Neutrophils (Bld) [#/Vol] 21.42 10*3/uL [facility] Neutrophils/100 WBC (Bld) 90.4 % [facility] Nucleated RBC (Bld) [#/Vol] 0.00 10*3/uL [facility] Nucleated RBC/100 WBC (Bld) [Ratio] 0.0 % [facility] Platelet mean volume (Bld) [Entitic vol] 11.9 fL 9.4 - 12.4 fL [facility] Platelets (Bld) [#/Vol] 220 10*3/uL [facility] RBC (Bld) [#/Vol] 3.59 10*6/uL Low [facility] WBC (Bld) [#/Vol] 23.69 10*3/uL [facility] CRP [Mass/Vol]on 11-27-2023 Interpretation and review of laboratory results Normal [facility] CRP, Inflammationon 11-27-19 24 CRP [Mass/Vol] mg/L NINF - 10.0 mg/L [facility] Clostridium difficile Testin gOrdered By: Nina Martinez on 11-27-2023 C. difficile Interpretation Negative [facility] Specimen Acceptability Acceptable [facility] ESR Westergren method (Bld) [Velocity]on 11-27-2023 ESR (Bld) [Velocity] 21 mm/h [facility] Interpretation and review of laboratory results Abnormal [facility] Glucose (Bld) [Mass/Vol]on 0 11-27-2023 Glucose [Mass/Vol] 85 mg/dL 65 - 99 mg/dL [facility] Interpretation and review of laboratory results Normal [facility] Glucose [Mass/Vol] 106 mg/dL High 65 - 99 mg/dL [facility] Interpretation and review of laboratory results Abnormal [facility] Glucose [Mass/Vol] 179 mg/dL High 65 - 99 mg/dL [facility] Interpretation and review of laboratory results Abnormal [facility] Glucose [Mass/Vol] 255 mg/dL High 65 - 99 mg/dL [facility] Interpretation and review of laboratory results Abnormal [facility] Glucose [Mass/Vol] 252 mg/dL High 65 - 99 mg/dL [facility] Interpretation and review of laboratory results Abnormal [facility] Glucose [Mass/Vol] 145 mg/dL High 65 - 99 mg/dL [facility] Interpretation and review of laboratory results Abnormal [facility] Glucose [Mass/Vol] 155 mg/dL High 65 - 99 mg/dL [facility] Interpretation and review of laboratory results Abnormal [facility] Glucose [Mass/Vol] 155 mg/dL High 65 - 99 mg/dL [facility] Interpretation and review of laboratory results Abnormal [facility] Glucose [Mass/Vol] 143 mg/dL High 65 - 99 mg/dL [facility] Interpretation and review of laboratory results Abnormal [facility] Glucose [Mass/Vol] 123 mg/dL High 65 - 99 mg/dL [facility] Interpretation and review of laboratory results Abnormal [facility] Glucose [Mass/Vol] 132 mg/dL High 65 - 99 mg/dL [facility] Interpretation and review of laboratory results Abnormal [facility] Glucose [Mass/Vol] 202 mg/dL High 65 - 99 mg/dL [facility] Interpretation and review of laboratory results Abnormal [facility] Glucose [Mass/Vol] 318 mg/dL High 65 - 99 mg/dL [facility] Interpretation and review of laboratory results Abnormal [facility] Glucose [Mass/Vol] 365 mg/dL High 65 - 99 mg/dL [facility] Interpretation and review of laboratory results Abnormal [facility] Glucose [Mass/Vol] 453 mg/dL Critically high 65 - 99 mg/d L [facility] Interpretation and review of laboratory results Abnormal [facility] Glucose [Mass/Vol] mg/dL Critically high 65 - 99 mg/d L [facility] Interpretation and review of laboratory results Abnormal [facility] Glucose [Mass/Vol] mg/dL Critically high 65 - 99 mg/d L [facility] Interpretation and review of laboratory results Abnormal [facility] Glucose [Mass/Vol] 498 mg/dL Critically high 65 - 99 mg/d L [facility] Interpretation and review of laboratory results Abnormal [facility] Green Topon 11-27-2023 Extra Tube Hold for add-ons. [facility] Comment on above: Auto resulted. [facility] HbA1c (Bld) [Mass fraction]O rdered By: Brent Carrillo on 11-27-2023 Average glucose Estimated from glycated hemoglobin (Bld) [Mass/Vol] 169 mg/dL High 68 - 114 mg/dL [facility] Interpretation and review of laboratory results Abnormal [facility] Hemoglobin [id number] By: Damaris Carrillo on 11-27-2023 HbA1c (Bld) [Mass fraction] 7.5 % High 4.0 - 5.6 % [facility] Hepatic function 2000 panelo n 11-27-2023 Albumin [Mass/Vol] 3.4 g/dL 3.2 - 5.2 g/dL [facility] ALP [Catalytic activity/Vol] 97 U/L 40 - 150 U/L [facility] ALT [Catalytic activity/Vol] 47 U/L 14 - 65 U/L [facility] AST [Catalytic activity/Vol] 74 U/L High 0-50 U/L [facility] Bilirubin [Mass/Vol] 0.7 mg/dL 0.0 - 1 .3 mg/dL [facility] Bilirubin.conjugated [Mass/Vol] 0.2 mg/dL 0.0 - 0.4 mg/dL [facility] Protein [Mass/Vol] 6.3 g/dL 6.0 - 8.0 g/dL [facility] Influenza virus A and B RNA and SARS-CoV-2 (COVID-19) N gene panel ALICE+probe (Resp)Ordered By: Esthela Albright on 11-27-2023 FLUAV RNA ALICE+probe Ql (Unsp spec) Not detected Not Detected [facility] FLUBV RNA ALICE+probe Ql (Unsp spec) Not detected Not Detected [facility] Interpretation and review of laboratory results Abnormal [facility] SARS-CoV-2 (COVID-19) RNA ALICE+probe Ql (Resp) Detected Abnormal Not Detected [facility] Lactate [Moles/Vol]on 2023 Interpretation and review of laboratory results Abnormal [facility] Interpretation and review of laboratory results Normal [facility] Lactic Acid, Plasmaon 2023 Lactate [Moles/Vol] 2.8 mmol/L High 0.6 - 2. 0 mmol/L [facility] Lactate [Moles/Vol] 2.0 mmol/L 0.6 - 2. 0 mmol/L [facility] Legionella Antigen, Urineon 11-27-2023 Interpretation and review of laboratory results Normal [facility] L. pneumophila Ag Ql (U) Negative Neg ative for Legionella antigen [facility] Lipid 1996 panelon Cholesterol [Mass/Vol] 130 mg/dL 100 - 199 mg/dL [facility] Cholesterol in HDL [Mass/Vol] 56 mg/dL 40 - 59 mg/dL [facility] Cholesterol in LDL [Mass/Vol] 61 mg/dL 10 - 130 mg/dL [facility] Cholesterol non HDL [Mass/Vol] 74 mg/dL [facility] Cholesterol.total/Cholest santos in HDL [Mass ratio] 2.3 {ratio} ratio [facility] Triglyceride [Mass/Vol] 67 mg/dL 30 - 150 mg/dL [facility] MRSA DNA Amplified Probeon 0 11-27-2023 MRSA DNA ALICE+probe Ql (Unsp spec) Negative Not Detected, MRSA NEGATIVE [facility] MRSA DNA ALICE+probe Ql (Unsp spec)on 11-27-2023 Interpretation and review of laboratory results Normal [facility] Magnesium Levelon 11-27-2023 Magnesium [Mass/Vol] 1.9 mg/dL 1.6 - 2 .4 mg/dL [facility] Magnesium [Mass/Vol] 2.2 mg/dL 1.6 - 2 .4 mg/dL [facility] Magnesium [Mass/Vol] 2.1 mg/dL 1.6 - 2 .4 mg/dL [facility] Magnesium [Mass/Vol] 2.1 mg/dL 1.6 - 2 .4 mg/dL [facility] Magnesium [Mass/Vol] 2.2 mg/dL 1.6 - 2 .4 mg/dL [facility] Magnesium [Mass/Vol]on 11-27 Interpretation and review of laboratory results Normal [facility] Interpretation and review of laboratory results Normal [facility] Interpretation and review of laboratory results Normal [facility] Interpretation and review of laboratory results Normal [facility] Interpretation and review of laboratory results Normal [facility] NT Pro BNPon 11-27-2023 Natriuretic peptide.B prohormone N-Terminal [Mass/Vol] 01260 pg/mL High 0 - 300 pg/mL [facility] Natriuretic peptide.B prohor katja N-Terminal [Mass/Vol]on 11-27-2023 Interpretation and review of laboratory results Abnormal [facility] No Panel Informationon 11-27 [facility] Interpretation and review of laboratory results Abnormal [facility] Obtain venous blood gases an d performon 11-27-2023 [facility] POC Arterial Blood Gas Panel -Pulmon 11-27-2023 Alveolar-arterial oxygen Partial pressure difference 85.4 mm Hg [facility] Base excess Calc (Bld) [Moles/Vol] -7.1000 mmol/L Low -2.0 - 2.0 [facility] Calcium.ionized [Mass/Vol] 4.7 mg/dL 4.5 - 5.3 mg/dL [facility] Carboxyhemoglobin (BldA) [Mass fraction] 1.3 NINF [facility] Chloride [Moles/Vol] 107 mmol/L 98 - 10 8 mmol/L [facility] CO2 (Bld) [Partial pressure] 31.7 mm[Hg] Low [facility] Glucose post fast [Mass/Vol] 543 mg/dL Critically high 65 - 99 mg/dL [facility] HCO3 (Bld) [Moles/Vol] 17.5 mmol/L Low 22.0 - 26.0 mmol/L [facility] Hematocrit (BldA) [Volume fraction] 37.9 % Low 41.0 - 53.0 % [facility] Hemoglobin (Bld) [Mass/Vol] 12.4 g/dL Low 13.5 - 17.5 g/dL [facility] Inhaled oxygen concentration 30 % [facility] Interpretation and review of laboratory results Abnormal [facility] Lactate [Moles/Vol] 1.7 mmol/L 0.6 - 2. 0 mmol/L [facility] Methemoglobin (BldA) [Mass fraction] % 0.0 - 2.0 % [facility] Oxygen (Bld) [Partial pressure] 84 mm[Hg] [facility] Oxyhemoglobin (BldA) [Mass fraction] 94.5 % 94.0 - 98.0 % [facility] pH (Bld) 7.35 [pH] 7.35 - 7.45 [facility] Potassium [Moles/Vol] 4.6 mmol/L 3.5 - 5.1 mmol/L [facility] Sodium [Moles/Vol] 138 mmol/L 135 - 145 mmol/L [facility] Specimen source Nom (Unsp spec) Radial, right [facility] POC Venous Blood Gas Panel-P ulmon 11-27-2023 Base excess Calc (BldV) [Moles/Vol] -8.4000 mmol/L Low -2.0 - 2.0 [facility] Calcium.ionized [Mass/Vol] 4.4 mg/dL Low 4.5 - 5.3 mg/dL [facility] Carboxyhemoglobin (BldA) [Mass fraction] 2.9 High [facility] Chloride [Moles/Vol] 108 mmol/L 98 - 10 8 mmol/L [facility] CO2 (BldV) [Partial pressure] 26.6 mm[Hg] Low [facility] Glucose post fast [Mass/Vol] 544 mg/dL Critically high 65 - 99 mg/dL [facility] HCO3 (Bld) [Moles/Vol] 15.4 mmol/L Low 24.0 - 28.0 mmol/L [facility] Hematocrit (BldA) [Volume fraction] 36.5 % Low 41.0 - 53.0 % [facility] Hemoglobin (Bld) [Mass/Vol] 11.9 g/dL Low 13.5 - 17.5 g/dL [facility] Inhaled oxygen concentration 30 % [facility] Interpretation and review of laboratory results Abnormal [facility] Lactate [Moles/Vol] 2.5 mmol/L High 0.6 - 2. 0 mmol/L [facility] Methemoglobin (BldA) [Mass fraction] % 0.0 - 2.0 % [facility] Oxygen (BldV) [Partial pressure] 140 mm[Hg] High [facility] Oxygen saturation in Venous blood 99.4 % High 40.0 - 70.0 % [facility] Oxyhemoglobin (BldA) [Mass fraction] 96.3 % No established reference range [facility] pH (BldV) 7.37 [pH] 7.32 - 7.42 [facility] Potassium [Moles/Vol] 4.0 mmol/L 3.5 - 5.1 mmol/L [facility] Sodium [Moles/Vol] 138 mmol/L 135 - 145 mmol/L [facility] Specimen source Nom (Unsp spec) Not specified [facility] Base excess Calc (BldV) [Moles/Vol] -5.8000 mmol/L Low -2.0 - 2.0 [facility] Calcium.ionized [Mass/Vol] 4.7 mg/dL 4.5 - 5.3 mg/dL [facility] Carboxyhemoglobin (BldA) [Mass fraction] 2.9 High [facility] Chloride [Moles/Vol] 107 mmol/L 98 - 10 8 mmol/L [facility] CO2 (BldV) [Partial pressure] 34.1 mm[Hg] Low [facility] Glucose post fast [Mass/Vol] 493 mg/dL Critically high 65 - 99 mg/dL [facility] HCO3 (Bld) [Moles/Vol] 19.0 mmol/L Low 24.0 - 28.0 mmol/L [facility] Hematocrit (BldA) [Volume fraction] 35.4 % Low 41.0 - 53.0 % [facility] Hemoglobin (Bld) [Mass/Vol] 11.5 g/dL Low 13.5 - 17.5 g/dL [facility] Inhaled oxygen concentration 28 % [facility] Inhaled oxygen flow rate 2 L/min [facility] Interpretation and review of laboratory results Abnormal [facility] Lactate [Moles/Vol] 1.8 mmol/L 0.6 - 2. 0 mmol/L [facility] Methemoglobin (BldA) [Mass fraction] % 0.0 - 2.0 % [facility] Oxygen (BldV) [Partial pressure] 63 mm[Hg] High [facility] Oxygen saturation in Venous blood 91.7 % High 40.0 - 70.0 % [facility] Oxyhemoglobin (BldA) [Mass fraction] 88.7 % No established reference range [facility] pH (BldV) 7.36 [pH] 7.32 - 7.42 [facility] Potassium [Moles/Vol] 4.7 mmol/L 3.5 - 5.1 mmol/L [facility] Sodium [Moles/Vol] 138 mmol/L 135 - 145 mmol/L [facility] Specimen source Nom (Unsp spec) Not specified [facility] Phosphate [Mass/Vol]on 11-27 Interpretation and review of laboratory results Normal [facility] Interpretation and review of laboratory results Abnormal [facility] Interpretation and review of laboratory results Normal [facility] Interpretation and review of laboratory results Normal [facility] Interpretation and review of laboratory results Abnormal [facility] Phosphoruson 11-27-2023 Phosphate [Mass/Vol] 2.6 mg/dL 2.3 - 3 .7 mg/dL [facility] Phosphate [Mass/Vol] 4.1 mg/dL High 2.3 - 3 .7 mg/dL [facility] Phosphate [Mass/Vol] 3.0 mg/dL 2.3 - 3 .7 mg/dL [facility] Phosphate [Mass/Vol] 2.3 mg/dL 2.3 - 3 .7 mg/dL [facility] Phosphate [Mass/Vol] 4.1 mg/dL High 2.3 - 3 .7 mg/dL [facility] Reflex Lactic Acid, Plasmaon 11-27-2023 Interpretation and review of laboratory results Normal [facility] Lactate [Moles/Vol] 2.0 mmol/L 0.6 - 2. 0 mmol/L [facility] Interpretation and review of laboratory results Abnormal [facility] Lactate [Moles/Vol] 2.8 mmol/L High 0.6 - 2. 0 mmol/L [facility] Respiratory pathogens DNA an d RNA panel ALICE+non-probe (Nph)Ordered By: Melania Freeman on 11-27-2023 Adenovirus DNA ALICE+non-probe Ql (Nph) Not detected Not Detected [facility] B. parapertussis [id number] DNA ALICE+non-probe Ql (Nph) Not detected Not Detected [facility] B. pertussis toxin promoter region ALICE+non-probe Ql (Nph) Not detected Not Detected [facility] C. pneumoniae DNA ALICE+non-probe Ql (Nph) Not detected Not Detected [facility] FLUAV RNA ALICE+non-probe Ql (Nph) Not detected Not Detected [facility] FLUBV RNA ALICE+non-probe Ql (Nph) Not detected Not Detected [facility] HCoV 229E RNA ALICE+non-probe Ql (Nph) Not detected Not Detected [facility] HCoV HKU1 RNA ALICE+non-probe Ql (Nph) Not detected Not Detected [facility] HCoV NL63 RNA ALICE+non-probe Ql (Nph) Not detected Not Detected [facility] HCoV OC43 RNA ALICE+non-probe Ql (Nph) Not detected Not Detected [facility] hMPV RNA ALICE+non-probe Ql (Nph) Not detected Not Detected [facility] Interpretation and review of laboratory results Normal [facility] M. pneumoniae DNA ALICE+non-probe Ql (Nph) Not detected Not Detected [facility] Parainfluenza virus 1 RNA ALICE+non-probe Ql (Nph) Not detected Not Detected [facility] Parainfluenza virus 2 RNA ALICE+non-probe Ql (Nph) Not detected Not Detected [facility] Parainfluenza virus 3 RNA ALICE+non-probe Ql (Nph) Not detected Not Detected [facility] Parainfluenza virus 4 RNA ALICE+non-probe Ql (Nph) Not detected Not Detected [facility] Rhinovirus+Enterovirus RNA ALICE+non-probe Ql (Nph) Not detected Not Detected [facility] RSV RNA ALICE+non-probe Ql (Nph) Not detected Not Detected [facility] SARS-CoV-2 (COVID-19) RNA ALICE+non-probe Ql (Nph) Not detected Not Detected [facility] S. pneumoniae Urine AntigenO rdered By: Maxine Hill on 11-27-2023 Interpretation and review of laboratory results Normal [facility] S. pneumoniae Ag Ql (U) Negative Pres umptive Negative for Pneumococcal pneumoniae [facility] TSH DL <= 0.005 mIU/L Qnon 0 11-27-2023 Interpretation and review of laboratory results Normal [facility] TSH Qn 0.35 m[IU]/L [facility] Tropinin I.cardiac panel Hig h sensitivity methodon 11-27-2023 Interpretation and review of laboratory results Abnormal [facility] Less than 99th percentile of normal range [...] performed using a different testing methodology at [facility] than at other [facility]. Direct result comparisons should only be made within the same method. [facility] Troponin I, High Sensitivity on 11-27-2023 Tropinin I.cardiac panel High sensitivity method 6445 ng/L Critically high 0 - 20 ng/L [facility] Comment on above: Previous result veri fied on 11/26/2023 2158 on specimen/case [id number] called with component [facility] for procedure Troponin I, High Sensitivity with value 2,361 ng/L. Troponin x 2 (Now and Repeat in 3 hours)Ordered By: Stephanie Carlton on 11-27-2023 Delta % Troponin I -6 % <20% of Baseline Troponin [facility] Troponin I Delta Change Probable non-acute cardiac injury or late presentation of acute injury. [facility] Interpretation and review of laboratory results Abnormal [facility] Troponin I 9349 ng/L Critically high NINF - 59 ng/L [facility] Troponin x 2 (Now and Repeat in 3 hours)on 11-27-2023 Interpretation and review of laboratory results Abnormal [facility] Troponin I 9973 ng/L Critically high NINF - 59 ng/L [facility] Troponin I Interpretation Possible acute cardiac injury. [facility] XR Chest PA and Abdomen APon 11-27-2023 GE RIS GE RIS [facility] Radiology Study observation (narrative) [facility] XR Chest PA and Abdomen APOr dered By: Malika Painting on 11-27-2023 [facility] Work Phone: aPTT Coag (Bld) [Time]Ordere d By: Becky Mercado on 11-27-2023 Interpretation and review of laboratory results Abnormal [facility] aPTT Coag (Bld) [Time]Ordere d By: Anjali Hartmann on 11-27-2023 Interpretation and review of laboratory results Abnormal [facility] CBC W Auto Differential pane l (Bld)on 11-26-2023 Basophils (Bld) [#/Vol] 0.05 10*3/uL [facility] Basophils/100 WBC (Bld) 0.2 % 0.0 - 2.0 % [facility] Eosinophils (Bld) [#/Vol] 0.00 10*3/uL [facility] Eosinophils/100 WBC (Bld) 0.0 % 0.0 - 6.0 % [facility] Erythrocyte distribution width (RBC) [Ratio] 13.8 % 11.5 - 14.5 % [facility] Hematocrit (Bld) [Volume fraction] 38.0 % Low 41.0 - 52.0 % [facility] Hemoglobin (Bld) [Mass/Vol] 12.2 g/dL Low 13.5 - 17.5 g/dL [facility] Immature granulocytes (Bld) [#/Vol] 0.12 10*3/uL [facility] Immature granulocytes/100 WBC (Bld) 0.6 % 0.0 - 0.9 % [facility] Comment on above: Immature Granulocyte Count (IG) includes promyelocytes, myelocytes and metamyelocytes but does not include bands. Percent differential counts (%) should be interpreted in the context of the absolute cell counts (cells/UL). Interpretation and review of laboratory results Abnormal [facility] Lymphocytes (Bld) [#/Vol] 2.01 10*3/uL [facility] Lymphocytes/100 WBC (Bld) 9.8 % 13.0 - 44. 0 % [facility] MCH (RBC) [Entitic mass] 30.5 pg 26. 0 - 34.0 pg [facility] MCHC (RBC) [Mass/Vol] 32.1 g/dL 32.0 - 36.0 g/dL [facility] MCV (RBC) [Entitic vol] 95 fL 80 - 100 fL [facility] Monocytes (Bld) [#/Vol] 0.75 10*3/uL [facility] Monocytes/100 WBC (Bld) 3.7 % 2.0 - 10.0 % [facility] Neutrophils (Bld) [#/Vol] 17.49 10*3/uL High [facility] Comment on above: Percent differential counts (%) should be interpreted in the context of the absolute cell counts (cells/uL). Neutrophils/100 WBC (Bld) 85.7 % 40.0 - 80. 0 % [facility] Nucleated RBC/100 WBC (Bld) [Ratio] 0.0 % [facility] Platelets (Bld) [#/Vol] 281 10*3/uL [facility] RBC (Bld) [#/Vol] 4.00 10*6/uL Low [facility] WBC (Bld) [#/Vol] 20.4 10*3/uL [facility] Comprehensive metabolic 2000 panelon 11-26-2023 Albumin BCP dye [Mass/Vol] 4.2 g/dL 3.4 - 5.0 g/dL [facility] ALP [Catalytic activity/Vol] 101 U/L 33 - 136 U/L [facility] ALT With P-5'-P [Catalytic activity/Vol] 38 U/L 10 - 52 U/L [facility] Comment on above: Patients treated wit h Sulfasalazine may generate falsely decreased results for ALT. Anion gap [Moles/Vol] 17 mmol/L 10 - 2 0 mmol/L [facility] AST With P-5'-P [Catalytic activity/Vol] 53 U/L High 9 - 39 U/L [facility] Bilirubin [Mass/Vol] 0.6 mg/dL 0.0 - 1 .2 mg/dL [facility] Calcium [Mass/Vol] 9.2 mg/dL 8.6 - 10. 3 mg/dL [facility] Chloride [Moles/Vol] 106 mmol/L 98 - 10 7 mmol/L [facility] CO2 [Moles/Vol] 17 mmol/L Low 21 - 32 mmol/L [facility] Creatinine [Mass/Vol] 1.96 mg/dL High 0.50 - 1.30 mg/dL [facility] GFR/1.73 sq M.predicted among non-blacks MDRD (S/P/Bld) [Vol rate/Area] 34 mL/min/{1.73_m2} Low - [facility] Comment on above: Calculations of albin mated GFR are performed using the 2020 CKD-EPI Study Refit equation without the race variable for the IDMS-Traceable creatinine methods. https://jasn.asnjournals.org/content//ASN.20 37731433 Glucose [Mass/Vol] 492 mg/dL Critically high 74 - 99 mg/d L [facility] Comment on above: Confirmed by repeat analysis Interpretation and review of laboratory results Abnormal [facility] Potassium [Moles/Vol] 4.5 mmol/L 3.5 - 5.3 mmol/L [facility] Protein [Mass/Vol] 6.7 g/dL 6.4 - 8.2 g/dL [facility] Sodium [Moles/Vol] 135 mmol/L Low 136 - 145 mmol/L [facility] Urea nitrogen [Mass/Vol] 35 mg/dL High 6 - 23 mg/d L [facility] Critical Careon 11-26-2023 Ger Bansal DO 11/27/2023 [...] discussed with: accepting provider at another facility [facility] Work Phone: [facility] Work Phone: Lactateon 11-26-2023 Lactate [Moles/Vol] 3.2 mmol/L High 0.4 - 2. 0 mmol/L [facility] Lactate [Moles/Vol] 3.8 mmol/L High 0.4 - 2. 0 mmol/L [facility] Lactate [Moles/Vol]on 2023 Interpretation and review of laboratory results Abnormal [facility] Venipuncture immediately after or during the administration of Metamizole may lead to falsely low results. Testing should be performed immediately prior to Metamizole dosing. [facility] Interpretation and review of laboratory results Abnormal [facility] Venipuncture immediately after or during the administration of Metamizole may lead to falsely low results. Testing should be performed immediately prior to Metamizole dosing. [facility] MRSA DNA ALICE+probe Ql (Nose) on 11-26-2023 Interpretation and review of laboratory results Normal [facility] MRSA DNA ALICE+probe Ql (Unsp spec) Not detected Not Detected [facility] This assay is an FDA-approved in vitro [...] patients less than two years of age. [facility] Magnesiumon 11-26-2023 Magnesium [Mass/Vol] 2.20 mg/dL 1.60 - 2.40 mg/dL [facility] Magnesium [Mass/Vol]on 11-26 Interpretation and review of laboratory results Normal [facility] Natriuretic peptide B [Mass/ Vol]on 11-26-2023 Interpretation and review of laboratory results Abnormal [facility] Natriuretic peptide B (Bld) [Mass/Vol] 902 pg/mL High 0 - 99 pg/mL [facility] <100 pg/mL - Heart failure unlikely 100-299 pg/mL - Intermediate probability of acute heart failure exacerbation. Correlate with clinical context and patient history. >=300 pg/mL - Heart Failure likely. Correlate with clinical context and patient history. BNP testing is performed using different testing methodology at [facility] than at other [facility]. Direct result comparisons should only be made within the same method. [facility] No Panel Informationon 11-26 [facility] Interpretation and review of laboratory results Normal [facility] PT Coag (PPP) [Time]on 11-26 INR Coag (PPP) [Relative time] 1.1 {INR} 0.9 - 1.1 [facility] Protime-INRon 11-26-2023 PT Coag (PPP) [Time] 12.3 s [facility] Tropinin I.cardiac panel Hig h sensitivity methodon 11-26-2023 Interpretation and review of laboratory results Abnormal [facility] Less than 99th percentile of normal range [...] performed using a different testing methodology at [facility] than at other [facility]. Direct result comparisons should only be made within the same method. [facility] Interpretation and review of laboratory results Abnormal [facility] Less than 99th percentile of normal range [...] performed using a different testing methodology at [facility] than at other [facility]. Direct result comparisons should only be made within the same method. [facility] Troponin I, High Sensitivity on 11-26-2023 Tropinin I.cardiac panel High sensitivity method 3473 ng/L Critically high 0 - 20 ng/L [facility] Comment on above: Previous result veri fied on 11/26/2023 2158 on specimen/case [id number] called with component [facility] for procedure Troponin I, High Sensitivity with value 2,361 ng/L. Tropinin I.cardiac panel High sensitivity method 2361 ng/L Critically high 0 - 20 ng/L [facility] XR Chest Single viewon 11-26 Pulmonary vascular congestive change and edema and small bilateral pleural effusions. There is asymmetric opacity in the right lower lung concerning for superimposed pneumonia. 10 mm nodular opacity at the left lung base; follow-up dedicated CT chest is recommended to exclude underlying pulmonary nodule. MACRO: None Signed by: Ghassan Tovar 11/26/2023 10:02 PM Dictation workstation: [id number] [facility] Interpreted By: Ghassan Tovar, STUDY: XR CHEST 1 VIEW; 11/26/2023 9:31 pm INDICATION: Signs/Symptoms:dyspn ea. COMPARISON: 10/13/2023 ACCESSION NUMBER(S): [id number] ORDERING CLINICIAN: GER BANSAL FINDINGS: The cardiac silhouette is stable in size. There is pulmonary vascular congestive change and edema. Small bilateral pleural effusions. There is 10 mm nodular opacity at the left lung base. No pneumothorax [facility] Ghassan Tovar MD - 11/26/2023 Interpreted By: Ghassan Tovar, STUDY: XR CHEST 1 VIEW; 11/26/2023 9:31 pm INDICATION: Signs/Symptoms:dyspn ea. COMPARISON: 10/13/2023 ACCESSION NUMBER(S): [id number] ORDERING CLINICIAN: GER BANSAL FINDINGS: The cardiac [...] Ghassan Tovar 11/26/2023 10:02 PM Dictation workstation: [id number] [facility] Work Phone: Radiology Study observation (narrative) [facility] Work Phone: XR Chest Single viewOrdered By: Ghassan Tovar on 11-26-2023 [facility] Work Phone: aPTTon 11-26-2023 aPTT Coag (PPP) [Time] 38 s [facility] aPTT Coag (PPP) [Time]on The APTT is no longer used for monitoring Unfractionated Heparin Therapy. For monitoring Heparin Therapy, use the Heparin Assay. [facility] Absolute lymphocyte countOrd ered By: Ryley Jeter on 11-25-2023 Lymphocytes Auto (Unsp spec) [#/Vol] 1.79 10*3/uL 0.83-4.51 [facility] Automated lymphocyte count a s percentage of total leukocytesOrdered By: Ryley Gordilloke on 11-25-2023 Lymphocytes/100 WBC Auto (Unsp spec) 19.7 % 19-41 [facility] Basophil percentageOrdered B y: Ryley Jeter on 11-25-2023 Basophils/100 WBC (Bld) 1.0 % 0-1 [facility] Bilirubin [Mass/Vol] 0.50 mg/dL 0.20-1.00 [facility] Comment on above: For patients on eltr ombopag therapy, use of Dimension [place] TBIL is not recommended. Chloride [Moles/Vol] 113 mmol/L 98-107 [facility] Eosinophils/100 WBC (Bld) 2.3 % 0-5 [facility] Glucose [Mass/Vol] 130 mg/dL 74-106 [facility] Comment on above: Fasting Glucose resu lt greater than or equal to 126 mg/dL suggests DIABETES MELLITUS per A.D.A. criteria. Hemoglobin (Bld) [Mass/Vol] 12.2 g/dL 13.0-16.5 [facility] Monocytes/100 WBC (Bld) 7.5 % 0-10 [facility] Neutrophils (Bld) [#/Vol] 6.3 10*3/uL 2.0-7.7 [facility] Neutrophils/100 WBC (Bld) 69.2 % 47-70 [facility] Potassium [Moles/Vol] 4.3 mmol/L 3.5-5.1 [facility] Protein [Mass/Vol] 7.1 g/dL 6.4-8.2 [facility] Sodium [Moles/Vol] 142 mmol/L 136-145 [facility] WBC (Bld) [#/Vol] 9.1 10*3/uL 4.4-11.0 [facility] Determination of erythrocyte mean corpuscular volume (MCV)Ordered By: Ryley Jeetr on 11-25-2023 MCV (RBC) [Entitic vol] 93.5 fL 80-94 [facility] Erythrocyte distribution wid th ratioOrdered By: Ryley Steffany on 11-25-2023 Erythrocyte distribution width (RBC) [Ratio] 14.1 % 11.6-14.6 [facility] Erythrocyte distribution wid th standard deviationOrdered By: Ryley Steffany on 11-25-2023 Erythrocyte distribution width (RBC) [Entitic vol] 47.9 fL 35.1-43.9 [facility] Hematocrit Auto (Bld) [Volum e fraction]Ordered By: Ryley Jeter on 11-25-2023 Hematocrit (Bld) [Volume fraction] 37.7 % 40-54 [facility] Immature granulocytes/100 WB C Auto (Bld)Ordered By: Ryley Jeter on 11-25-2023 Immature granulocytes/100 WBC (Bld) 0.300 % 0.0-0.9 [facility] Comment on above: IG% - Immature Granu locytes (promyelocytes, myelocytes and metamyelocytes) > 1% indicates that a LEFT SHIFT is Present. Laboratory - Chemistry and C hemistry - challengeOrdered By: Ryley Jeter on 11-25-2023 Albumin/Globulin [Mass ratio] 1.0 {ratio} 0.9-2.4 [facility] ALP [Catalytic activity/Vol] 98 U/L 45-117 [facility] ALT [Catalytic activity/Vol] 25 U/L 16-61 [facility] CO2 [Moles/Vol] 25.0 mmol/L 21.0-32.0 [facility] Globulin (S) [Mass/Vol] 3.5 g/dL 2.2-4.2 [facility] Urea nitrogen/Creatinine [Mass ratio] 13.5 mg/mg 10-20 [facility] Laboratory - Hematology and Cell countsOrdered By: Ryley Jeter on 11-25-2023 MCH (RBC) [Entitic mass] 30.3 pg 27.0-32.0 [facility] MCHC (RBC) [Mass/Vol] 32.4 g/dL 32-36 [facility] Nucleated RBC/100 WBC (Bld) [Ratio] 0 % 0-5 [facility] Platelets (Bld) [#/Vol] 239 10*3/uL 150-450 [facility] No Panel InformationOrdered By: Ryley Jeter on 11-25-2023 Estimated GFR (MDRD) Amer 55 mL/min >60 [facility] Comment on above: GFR Calc Estimated GFR (MDRD) Non-Af Amer 46 mL/min >60 [facility] Comment on above: Non- GFR Calc Platelet mean volume [place]odi-Ec ker (Bld) [Entitic vol]Ordered By: Ryley Jeter on 11-25-2023 Platelet mean volume (Bld) [Entitic vol] 11.3 fL 6.2-12.0 [facility] RBC Auto (Bld) [#/Vol]Ordere d By: Ryley Jeter on 11-25-2023 RBC (Bld) [#/Vol] 4.03 10*6/uL 4.6-6.2 [facility] Serum or plasma calcium nikkie urement (mass/volume)Ordered By: Ryley Jeter on 11-25-2023 Calcium [Mass/Vol] 9.5 mg/dL 8.5-10.1 [facility] Serum or plasma creatinine m easurement (mass/volume)Ordered By: Ryley Jeter on 11-25-2023 Creatinine [Mass/Vol] 1.56 mg/dL 0.70-1.30 [facility] Comment on above: The validity of the calculated GFR & GFRAA in patients over 70 years has not been determined. Clinical correlation is essential. Serum or plasma thyroid stim ulating hormone (TSH) measurement (units/volume)Ordered By: Ryley Jeter on 11-25-2023 TSH Qn 0.80 uIU/mL 0.358-3.74 [facility] Serum or plasma urea nitroge n measurement (mass/volume)Ordered By: Ryley Jeter on 11-25-2023 Urea nitrogen [Mass/Vol] 21 mg/dL 7-18 [facility] Thin prep Papanicolaou smear with manual screeningOrdered By: Ryley Jeter on 11-25-2023 Thin prep Papanicolaou smear with manual screening 3.6 g/dL 3.2-5.0 [facility] Thin prep Papanicolaou smear with manual screening 23 U/L 15-37 [facility] Thin prep Papanicolaou smear with manual screening 4 5-15 [facility] Basophil percentageOrdered B y: Jana Ferguson on 10-22-2023 Chloride [Moles/Vol] 111 mmol/L 98-107 [facility] Glucose [Mass/Vol] 120 mg/dL 74-106 [facility] Comment on above: Fasting Glucose resu lt from 100 to 125 mg/dL suggests IMPAIRED HOMEOSTASIS per A.D.A. criteria. Potassium [Moles/Vol] 4.7 mmol/L 3.5-5.1 [facility] Sodium [Moles/Vol] 140 mmol/L 136-145 [facility] WBC (Bld) [#/Vol] 9.1 10*3/uL 4.4-11.0 [facility] Blood erythrocytes count (nu mber/volume)Ordered By: Jana Ferguson on 10-22-2023 RBC (Bld) [#/Vol] 4.16 10*6/uL 4.6-6.2 [facility] Blood hemoglobin measurement (mass/volume)Ordered By: Jana Ferguson on 10-22-2023 Hemoglobin (Bld) [Mass/Vol] 12.3 g/dL 13.0-16.5 [facility] Blood platelet mean volumeOr dered By: Jana Ferguson on 10-22-2023 Platelet mean volume (Bld) [Entitic vol] 11.6 fL 6.2-12.0 [facility] Determination of erythrocyte mean corpuscular volume (MCV)Ordered By: Jana Ferguson on 10-22-2023 MCV (RBC) [Entitic vol] 93.0 fL 80-94 [facility] Hematocrit Auto (Bld) [Volum e fraction]Ordered By: Jana Ferguson on 10-22-2023 Hematocrit (Bld) [Volume fraction] 38.7 % 40-54 [facility] Laboratory - Chemistry and C hemistry - challengeOrdered By: Jana Ferguson on 10-22-2023 CO2 [Moles/Vol] 27.0 mmol/L 21.0-32.0 [facility] Urea nitrogen/Creatinine [Mass ratio] 20.9 mg/mg 10-20 [facility] Laboratory - Hematology and Cell countsOrdered By: Jana Ferguson on 10-22-2023 Erythrocyte distribution width (RBC) [Entitic vol] 44.3 fL 35.1-43.9 [facility] Erythrocyte distribution width (RBC) [Ratio] 13.0 % 11.6-14.6 [facility] MCH (RBC) [Entitic mass] 29.6 pg 27.0-32.0 [facility] MCHC Auto (RBC) [Mass/Vol]Or dered By: Jana Ferguson on 10-22-2023 MCHC (RBC) [Mass/Vol] 31.8 g/dL 32- [facility] [facility] No Panel InformationOrdered By: Jana Ferguson on 10-22-2023 Estimated GFR (MDRD) Amer 40 mL/min >60 [facility] Comment on above: GFR Calc Estimated GFR (MDRD) Non-Af Amer 33 mL/min >60 [facility] Comment on above: Non- GFR Calc Platelets bldOrdered By: Jadyn Ferguson on 10-22-2023 Platelets (Bld) [#/Vol] 304 10*3/uL 150-450 [facility] Serum or plasma calcium nikkie urement (mass/volume)Ordered By: Jana Ferguson on 10-22-2023 Calcium [Mass/Vol] 9.1 mg/dL 8.5-10.1 [facility] Serum or plasma creatinine m easurement (mass/volume)Ordered By: Jana Ferguson on 10-22-2023 Creatinine [Mass/Vol] 2.06 mg/dL 0.70-1.30 [facility] Comment on above: The validity of the calculated GFR & GFRAA in patients over 70 years has not been determined. Clinical correlation is essential. Serum or plasma urea nitroge n measurement (mass/volume)Ordered By: Jana Ferguson on 10-22-2023 Urea nitrogen [Mass/Vol] 43 mg/dL 7-18 [facility] Thin prep Papanicolaou smear with manual screeningOrdered By: Jana Ferguson on 10-22-2023 Thin prep Papanicolaou smear with manual screening 2 5-15 [facility] Basic metabolic 2000 panelon 10-13-2023 Anion gap [Moles/Vol] 17 mmol/L 10 - 2 0 mmol/L [facility] Calcium [Mass/Vol] 8.3 mg/dL Low 8.6 - 10. 3 mg/dL [facility] Chloride [Moles/Vol] 102 mmol/L 98 - 10 7 mmol/L [facility] CO2 [Moles/Vol] 22 mmol/L 21 - 32 mmol/L [facility] Creatinine [Mass/Vol] 2.30 mg/dL High 0.50 - 1.30 mg/dL [facility] GFR/1.73 sq M.predicted MDRD (S/P/Bld) [Vol rate/Area] 28 mL/min/{1.73_m2} Low - PINF [facility] Comment on above: Calculations of albin mated GFR are performed using the 2020 CKD-EPI Study Refit equation without the race variable for the IDMS-Traceable creatinine methods. https://jasn.asnjournals.org/content//ASN.20 23434304 Glucose [Mass/Vol] 327 mg/dL High 74 - 99 mg/dL [facility] Interpretation and review of laboratory results Abnormal [facility] Potassium [Moles/Vol] 4.9 mmol/L 3.5 - 5.3 mmol/L [facility] Sodium [Moles/Vol] 136 mmol/L 136 - 145 mmol/L [facility] Urea nitrogen [Mass/Vol] 57 mg/dL High 6 - 23 mg/d L [facility] CBC W Auto Differential pane l (Bld)on 10-13-2023 Basophils (Bld) [#/Vol] 0.02 10*3/uL [facility] Basophils/100 WBC (Bld) 0.1 % 0.0 - 2.0 % [facility] Eosinophils (Bld) [#/Vol] 0.00 10*3/uL [facility] Eosinophils/100 WBC (Bld) 0.0 % 0.0 - 6.0 % [facility] Erythrocyte distribution width (RBC) [Ratio] 13.2 % 11.5 - 14.5 % [facility] Hematocrit (Bld) [Volume fraction] 36.4 % Low 41.0 - 52.0 % [facility] Hemoglobin (Bld) [Mass/Vol] 12.4 g/dL Low 13.5 - 17.5 g/dL [facility] Immature granulocytes (Bld) [#/Vol] 0.11 10*3/uL [facility] Immature granulocytes/100 WBC (Bld) 0.6 % 0.0 - 0.9 % [facility] Comment on above: Immature Granulocyte Count (IG) includes promyelocytes, myelocytes and metamyelocytes but does not include bands. Percent differential counts (%) should be interpreted in the context of the absolute cell counts (cells/UL). Interpretation and review of laboratory results Abnormal [facility] Lymphocytes (Bld) [#/Vol] 1.30 10*3/uL [facility] Lymphocytes/100 WBC (Bld) 7.3 % 13.0 - 44. 0 % [facility] MCH (RBC) [Entitic mass] 31.0 pg 26. 0 - 34.0 pg [facility] MCHC (RBC) [Mass/Vol] 34.1 g/dL 32.0 - 36.0 g/dL [facility] MCV (RBC) [Entitic vol] 91 fL 80 - 100 fL [facility] Monocytes (Bld) [#/Vol] 1.15 10*3/uL High [facility] Monocytes/100 WBC (Bld) 6.5 % 2.0 - 10.0 % [facility] Neutrophils (Bld) [#/Vol] 15.21 10*3/uL High [facility] Comment on above: Percent differential counts (%) should be interpreted in the context of the absolute cell counts (cells/uL). Neutrophils/100 WBC (Bld) 85.5 % 40.0 - 80. 0 % [facility] Nucleated RBC/100 WBC (Bld) [Ratio] 0.0 % [facility] Platelets (Bld) [#/Vol] 153 10*3/uL [facility] RBC (Bld) [#/Vol] 4.00 10*6/uL Low [facility] WBC (Bld) [#/Vol] 17.8 10*3/uL High [facility] Glucose Test strip manual (B ld) [Mass/Vol]on 10-13-2023 Glucose [Mass/Vol] 329 mg/dL High 74 - 99 mg/dL [facility] Interpretation and review of laboratory results Abnormal [facility] Glucose [Mass/Vol] 304 mg/dL High 74 - 99 mg/dL [facility] Interpretation and review of laboratory results Abnormal [facility] Glucose [Mass/Vol] 305 mg/dL High 74 - 99 mg/dL [facility] Interpretation and review of laboratory results Abnormal [facility] XR Chest Single viewon 10-13 Right upper lobe airspace consolidation, concerning for pneumonia. Clinical correlation and continued follow-up until clearing is recommended. MACRO: None. Signed by: Jaret Walker 10/13/2023 11:21 AM Dictation workstation: [id number] Interpreted By: Jaret Walker, STUDY: XR CHEST 1 VIEW 10/13/2023 8:31 am INDICATION: Signs/Symptoms:Acute dyspnea COMPARISON: 10/11/2023 ACCESSION NUMBER(S): [id number] ORDERING CLINICIAN: VERA RIVERA TECHNIQUE: A single [...] INDICATION: Signs/Symptoms:Acute dyspnea COMPARISON: 10/11/2023 ACCESSION NUMBER(S): [id number] ORDERING CLINICIAN: VERA RIVERA TECHNIQUE: A single [...] Jaret Walker 10/13/2023 11:21 AM Dictation workstation: [id number] [facility] Work Phone: Radiology Study observation (narrative) [facility] Work Phone: XR Chest Single viewOrdered By: Jaret Walker on 10-13-2023 [facility] Work Phone: Basic metabolic 2000 panelon 10-12-2023 Anion gap [Moles/Vol] 13 mmol/L 10 - 2 0 mmol/L [facility] Calcium [Mass/Vol] 8.2 mg/dL Low 8.6 - 10. 3 mg/dL [facility] Chloride [Moles/Vol] 103 mmol/L 98 - 10 7 mmol/L [facility] CO2 [Moles/Vol] 23 mmol/L 21 - 32 mmol/L [facility] Creatinine [Mass/Vol] 2.11 mg/dL High 0.50 - 1.30 mg/dL [facility] GFR/1.73 sq M.predicted MDRD (S/P/Bld) [Vol rate/Area] 31 mL/min/{1.73_m2} Low - PINF [facility] Comment on above: Calculations of albin mated GFR are performed using the 2020 CKD-EPI Study Refit equation without the race variable for the IDMS-Traceable creatinine methods. https://jasn.asnjournals.org/content/22/ASN.20 00028593 Glucose [Mass/Vol] 214 mg/dL High 74 - 99 mg/dL [facility] Interpretation and review of laboratory results Abnormal [facility] Potassium [Moles/Vol] 4.4 mmol/L 3.5 - 5.3 mmol/L [facility] Sodium [Moles/Vol] 135 mmol/L Low 136 - 145 mmol/L [facility] Urea nitrogen [Mass/Vol] 44 mg/dL High 6 - 23 mg/d L [facility] CBC W Auto Differential pane l (Bld)on 10-12-2023 Basophils (Bld) [#/Vol] 0.03 10*3/uL [facility] Basophils/100 WBC (Bld) 0.1 % 0.0 - 2.0 % [facility] Eosinophils (Bld) [#/Vol] 0.00 10*3/uL [facility] Eosinophils/100 WBC (Bld) 0.0 % 0.0 - 6.0 % [facility] Erythrocyte distribution width (RBC) [Ratio] 13.0 % 11.5 - 14.5 % [facility] Hematocrit (Bld) [Volume fraction] 34.5 % Low 41.0 - 52.0 % [facility] Hemoglobin (Bld) [Mass/Vol] 11.8 g/dL Low 13.5 - 17.5 g/dL [facility] Immature granulocytes (Bld) [#/Vol] 0.09 10*3/[facility] Immature granulocytes/100 WBC (Bld) 0.4 % 0.0 - 0.9 % [facility] Comment on above: Immature Granulocyte Count (IG) includes promyelocytes, myelocytes and metamyelocytes but does not include bands. Percent differential counts (%) should be interpreted in the context of the absolute cell counts (cells/UL). Interpretation and review of laboratory results Abnormal [facility] Lymphocytes (Bld) [#/Vol] 1.79 10*3/uL [facility] Lymphocytes/100 WBC (Bld) 8.6 % 13.0 - 44. 0 % [facility] MCH (RBC) [Entitic mass] 30.8 pg 26. 0 - 34.0 pg [facility] MCHC (RBC) [Mass/Vol] 34.2 g/dL 32.0 - 36.0 g/dL [facility] MCV (RBC) [Entitic vol] 90 fL 80 - 100 fL [facility] Monocytes (Bld) [#/Vol] 1.55 10*3/uL High [facility] Monocytes/100 WBC (Bld) 7.5 % 2.0 - 10.0 % [facility] Neutrophils (Bld) [#/Vol] 17.32 10*3/uL [facility] Comment on above: Percent differential counts (%) should be interpreted in the context of the absolute cell counts (cells/uL). Neutrophils/100 WBC (Bld) 83.4 % 40.0 - 80. 0 % [facility] Nucleated RBC/100 WBC (Bld) [Ratio] 0.0 % [facility] Platelets (Bld) [#/Vol] 152 10*3/uL [facility] RBC (Bld) [#/Vol] 3.83 10*6/uL Low [facility] WBC (Bld) [#/Vol] 20.8 10*3/uL [facility] Glucose Test strip manual (B ld) [Mass/Vol]on 10-12-2023 Glucose [Mass/Vol] 240 mg/dL High 74 - 99 mg/dL [facility] Interpretation and review of laboratory results Abnormal [facility] Glucose [Mass/Vol] 166 mg/dL High 74 - 99 mg/dL [facility] Interpretation and review of laboratory results Abnormal [facility] Glucose [Mass/Vol] 186 mg/dL High 74 - 99 mg/dL [facility] Interpretation and review of laboratory results Abnormal [facility] Glucose [Mass/Vol] 218 mg/dL High 74 - 99 mg/dL [facility] Interpretation and review of laboratory results Abnormal [facility] Glucose [Mass/Vol] 127 mg/dL High 74 - 99 mg/dL [facility] Interpretation and review of laboratory results Abnormal [facility] No Panel Informationon 10-12 Extra Tube Hold for add-ons. [facility] Comment on above: Auto resulted. [facility] CBC W Auto Differential pane l (Bld)on 10-11-2023 Basophils (Bld) [#/Vol] 0.07 10*3/uL [facility] Basophils/100 WBC (Bld) 0.7 % 0.0 - 2.0 % [facility] Eosinophils (Bld) [#/Vol] 0.09 10*3/uL [facility] Eosinophils/100 WBC (Bld) 0.9 % 0.0 - 6.0 % [facility] Erythrocyte distribution width (RBC) [Ratio] 13.0 % 11.5 - 14.5 % [facility] Hematocrit (Bld) [Volume fraction] 36.7 % Low 41.0 - 52.0 % [facility] Hemoglobin (Bld) [Mass/Vol] 12.0 g/dL Low 13.5 - 17.5 g/dL [facility] Immature granulocytes (Bld) [#/Vol] 0.03 10*3/uL [facility] Immature granulocytes/100 WBC (Bld) 0.3 % 0.0 - 0.9 % [facility] Comment on above: Immature Granulocyte Count (IG) includes promyelocytes, myelocytes and metamyelocytes but does not include bands. Percent differential counts (%) should be interpreted in the context of the absolute cell counts (cells/UL). Interpretation and review of laboratory results Abnormal [facility] Lymphocytes (Bld) [#/Vol] 1.34 10*3/uL [facility] Lymphocytes/100 WBC (Bld) 12.9 % 13.0 - 44. 0 % [facility] MCH (RBC) [Entitic mass] 30.4 pg 26. 0 - 34.0 pg [facility] MCHC (RBC) [Mass/Vol] 32.7 g/dL 32.0 - 36.0 g/dL [facility] MCV (RBC) [Entitic vol] 93 fL 80 - 100 fL [facility] Monocytes (Bld) [#/Vol] 1.25 10*3/uL High [facility] Monocytes/100 WBC (Bld) 12.0 % 2.0 - 10.0 % [facility] Neutrophils (Bld) [#/Vol] 7.64 10*3/uL High [facility] Comment on above: Percent differential counts (%) should be interpreted in the context of the absolute cell counts (cells/uL). Neutrophils/100 WBC (Bld) 73.2 % 40.0 - 80. 0 % [facility] Nucleated RBC/100 WBC (Bld) [Ratio] 0.0 % [facility] Platelets (Bld) [#/Vol] 158 10*3/uL [facility] RBC (Bld) [#/Vol] 3.95 10*6/uL Low [facility] WBC (Bld) [#/Vol] 10.4 10*3/uL [facility] Comprehensive metabolic 2000 panelon 10-11-2023 Albumin BCP dye [Mass/Vol] 3.8 g/dL 3.4 - 5.0 g/dL [facility] ALP [Catalytic activity/Vol] 83 U/L 33 - 136 U/L [facility] ALT With P-5'-P [Catalytic activity/Vol] 13 U/L 10 - 52 U/L [facility] Comment on above: Patients treated wit h Sulfasalazine may generate falsely decreased results for ALT. Anion gap [Moles/Vol] 15 mmol/L 10 - 2 0 mmol/L [facility] AST With P-5'-P [Catalytic activity/Vol] 18 U/L 9 - 39 U/L [facility] Bilirubin [Mass/Vol] 0.4 mg/dL 0.0 - 1 .2 mg/dL [facility] Calcium [Mass/Vol] 8.5 mg/dL Low 8.6 - 10. 3 mg/dL [facility] Chloride [Moles/Vol] 103 mmol/L 98 - 10 7 mmol/L [facility] CO2 [Moles/Vol] 22 mmol/L 21 - 32 mmol/L [facility] Creatinine [Mass/Vol] 1.83 mg/dL High 0.50 - 1.30 mg/dL [facility] GFR/1.73 sq M.predicted MDRD (S/P/Bld) [Vol rate/Area] 37 mL/min/{1.73_m2} Low - PINF [facility] Comment on above: Calculations of albin mated GFR are performed using the 2020 CKD-EPI Study Refit equation without the race variable for the IDMS-Traceable creatinine methods. https://jasn.asnjournals.org/content//ASN.20 41483845 Glucose [Mass/Vol] 344 mg/dL High 74 - 99 mg/dL [facility] Interpretation and review of laboratory results Abnormal [facility] Potassium [Moles/Vol] 4.4 mmol/L 3.5 - 5.3 mmol/L [facility] Protein [Mass/Vol] 6.3 g/dL Low 6.4 - 8.2 g/dL [facility] Sodium [Moles/Vol] 136 mmol/L 136 - 145 mmol/L [facility] Urea nitrogen [Mass/Vol] 30 mg/dL High 6 - 23 mg/d L [facility] Critical Careon 10-11-2023 Aury Rouse DO 10/12/2023 [...] specialty: no Care discussed with: admitting provider [facility] Work Phone: [facility] Work Phone: D-Dimer, VTE Exclusionon Fibrin D-dimer FEU (PPP) [Mass/Vol] 1869 High NINF [facility] ECG 12-LEADon 10-11-2023 ECG 12-LEAD Ventricular Rate 113 Atrial Rate 113 P-R Interval 148 QRS Duration 82 Q-T Interval 332 QTC Calculation(Bazett) 455 P Carrier 67 R Carrier 39 T Carrier 81 QRS Count 18 Q Onset 220 P Onset 146 P Offset 189 T Offset 386 QTC Fredericia 410 Diagnosis Sinus tachycardia 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 NON-SPECIFIC T-WAVE CHANGES Abnormal EKG Confirmed by Tyrone Bajwa ([id number]) on 10/11/2023 6:18:47 PM Normal [facility] FLUAV and FLUBV RNA ALICE+prob e Nom (Unsp spec)on 10-11-2023 FLUAV RNA ALICE+probe Ql (Resp) Not detected Not Detected [facility] FLUBV RNA ALICE+probe Ql (Resp) Not detected Not Detected [facility] This assay is an in vitro diagnostic multiplex nucleic acid amplification test for the detection and discrimination of Influenza A & B from nasopharyngeal specimens, and has been validated for use at [facility]. Negative results do not preclude Influenza A/B infections, and should not be used as the sole basis for diagnosis, treatment, or other management decisions. If Influenza A/B and RSV PCR results are negative, testing for Parainfluenza virus, Adenovirus and Metapneumovirus is routinely performed for [facility] pediatric oncology and intensive care inpatients, and is available on other patients by placing an add-on request. [facility] Fibrin D-dimer FEU (PPP) [Ma ss/Vol]on 10-11-2023 Interpretation and review of laboratory results Abnormal [facility] The VTE Exclusion D-Dimer assay is reported in ng/mL Fibrinogen Equivalent Units (FEU). Per director of nursing's instructions for use, a value of less [...] assessment model for DVT or PE exclusion.) [facility] Gas panel (BldA)on 3 Apparatus CANNULA [facility] Base excess Calc (Bld) [Moles/Vol] -2.2000 mmol/L Low -2.0 - 3.0 mmol/L [facility] CO2 (Bld) [Partial pressure] 41 mm[Hg] [facility] HCO3 (Bld) [Moles/Vol] 23.2 mmol/L 22.0 - 26.0 mmol/L [facility] Inhaled oxygen concentration 50 % [facility] Interpretation and review of laboratory results Abnormal [facility] Oxygen (Bld) [Partial pressure] 66 mm[Hg] Low [facility] Oxyhemoglobin (BldA) [Mass fraction] 90.6 % Low 94.0 - 98.0 % [facility] pH (Bld) 7.36 [pH] Low 7.38 - 7.42 pH [facility] Glucose Test strip manual (B ld) [Mass/Vol]on 10-11-2023 Glucose [Mass/Vol] 132 mg/dL High 74 - 99 mg/dL [facility] Interpretation and review of laboratory results Abnormal [facility] Glucose [Mass/Vol] 203 mg/dL High 74 - 99 mg/dL [facility] Interpretation and review of laboratory results Abnormal [facility] Glucose [Mass/Vol] 271 mg/dL High 74 - 99 mg/dL [facility] Interpretation and review of laboratory results Abnormal [facility] Glucose [Mass/Vol] 357 mg/dL High 74 - 99 mg/dL [facility] Interpretation and review of laboratory results Abnormal [facility] Glucose [Mass/Vol] 407 mg/dL High 74 - 99 mg/dL [facility] Interpretation and review of laboratory results Abnormal [facility] Glucose [Mass/Vol] 385 mg/dL High 74 - 99 mg/dL [facility] Interpretation and review of laboratory results Abnormal [facility] Glucose [Mass/Vol] 455 mg/dL High 74 - 99 mg/dL [facility] Comment on above: RN/ NOTIFIED Interpretation and review of laboratory results Abnormal [facility] Glucose [Mass/Vol] 481 mg/dL High 74 - 99 mg/dL [facility] Comment on above: RN/ NOTIFIED Interpretation and review of laboratory results Abnormal [facility] Glucose [Mass/Vol] mg/dL High 74 - 99 mg/dL [facility] Interpretation and review of laboratory results Abnormal [facility] Glucose [Mass/Vol] mg/dL High 74 - 99 mg/dL [facility] Interpretation and review of laboratory results Abnormal [facility] Glucose [Mass/Vol] 571 mg/dL High 74 - 99 mg/dL [facility] Interpretation and review of laboratory results Abnormal [facility] Glucose [Mass/Vol] 562 mg/dL High 74 - 99 mg/dL [facility] Comment on above: RN/MD NOTIFIED Interpretation and review of laboratory results Abnormal [facility] Glucose [Mass/Vol] 386 mg/dL High 74 - 99 mg/dL [facility] Interpretation and review of laboratory results Abnormal [facility] Glucose [Mass/Vol]on 023 Interpretation and review of laboratory results Abnormal [facility] Glucose, randomon 10-11-2023 Glucose [Mass/Vol] 654 mg/dL Critically high 74 - 99 mg/d L [facility] Comment on above: Confirmed by repeat analysis Lactateon 10-11-2023 Lactate [Moles/Vol] 1.6 mmol/L 0.4 - 2. 0 mmol/L [facility] Lactate [Moles/Vol]on 2022 Interpretation and review of laboratory results Normal [facility] Venipuncture immediately after or during the administration of Metamizole may lead to falsely low results. Testing should be performed immediately prior to Metamizole dosing. [facility] Natriuretic peptide B [Mass/ Vol]on 10-11-2023 Interpretation and review of laboratory results Abnormal [facility] Natriuretic peptide B (Bld) [Mass/Vol] 251 pg/mL High 0 - 99 pg/mL [facility] <100 pg/mL - Heart failure unlikely 100-299 pg/mL - Intermediate probability of acute heart failure exacerbation. Correlate with clinical context and patient history. >=300 pg/mL - Heart Failure likely. Correlate with clinical context and patient history. BNP testing is performed using different testing methodology at [facility] than at other [facility]. Direct result comparisons should only be made within the same method. [facility] No Panel Informationon 10-11 Atrial Rate 113 BPM [facility] Work Phone: [phone] P Carrier 67 degrees [facility] Work Phone: [phone] P Offset 189 ms [facility] Work Phone: [phone] P Onset 146 ms [facility] Work Phone: [phone] TN Interval 148 ms [facility] Work Phone: Q Onset 220 ms [facility] Work Phone: [phone] QRS Count 18 beats [facility] Work Phone: [phone] QRS Duration 82 ms [facility] Work Phone: QT Interval 332 ms [facility] Work Phone: [phone] QTC Calculation(Bazett) 455 ms [address] 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 [facility] Comment on above: Auto resulted. [facility] Interpretation and review of laboratory results Normal [facility] ProcalcitoninOrdered By: Teresa Fine on 10-11-2023 Procalcitonin [Mass/Vol] 0.18 ng/mL High ANGEL F - 0.07 ng/mL [facility] Procalcitonin [Mass/Vol]Orde red By: Ismael Fine on 10-11-2023 Interpretation and review of laboratory results Abnormal [facility] Procalcitonin (PCT) results measured serially can aid [...] on immunomodulatory medications has not been evaluated. [facility] RSV PCRon 10-11-2023 RSV RNA ALICE+probe Ql (Resp) Not detected Not Detected [facility] RSV RNA ALICE+probe Ql (Resp)o n 10-11-2023 This assay is an FDA-cleared, in vitro diagnostic nucleic acid amplification test for the detection of RSV from nasopharyngeal specimens, and has been validated for use at [facility]. Negative results do not preclude RSV infections, and should not be used as the sole basis for diagnosis, treatment, or other management decisions. If Influenza A/B and RSV PCR results are negative, testing for Parainfluenza virus, Adenovirus and Metapneumovirus is routinely performed for pediatric oncology and intensive care inpatients at [facility], and is available on other patients by placing an add-on request. [facility] SARS-CoV-2 (COVID-19) RNA NA A+probe Ql (Resp)Ordered By: Rae Marcelino on 10-11-2023 Interpretation and review of laboratory results Abnormal [facility] This assay has received FDA Emergency Use [...] and has been validated for use at [facility]. Negative results do not preclude COVID-19 infections and should not be used as the sole basis for diagnosis, treatment, or other management decisions. [facility] SST TOPon 10-11-2023 Extra Tube Hold for add-ons. [facility] Comment on above: Auto resulted. [facility] Sars-CoV-2 PCR, SymptomaticO rdered By: Rae Marcelino on 10-11-2023 SARS-CoV-2 (COVID-19) RNA ALICE+probe Ql (Resp) Detected Abnormal Not Detected [facility] Tropinin I.cardiac panel Hig h sensitivity methodon 10-11-2023 Interpretation and review of laboratory results Abnormal [facility] Less than 99th percentile of normal range [...] performed using a different testing methodology at [facility] than at other [facility]. Direct result comparisons should only be made within the same method. [facility] Interpretation and review of laboratory results Abnormal [facility] Less than 99th percentile of normal range [...] performed using a different testing methodology at [facility] than at other [facility]. Direct result comparisons should only be made within the same method. [facility] Troponin I, High Sensitivity , Initialon 10-11-2023 Tropinin I.cardiac panel High sensitivity method 102 ng/L Critically high 0 - 20 ng/L [facility] Troponin, High Sensitivity, 1 Houron 10-11-2023 Tropinin I.cardiac panel High sensitivity method 354 ng/L Critically high 0 - 20 ng/L [facility] Comment on above: Previous result veri fioumar on 10/11/2023 0209 on specimen/case [id number] called with component [facility] for procedure Troponin I, High Sensitivity, Initial with value 102 ng/L. US Heart TransthoracicOrdere d By: Jose Enrique Molina on 10-11-2023 LA vol index A/L 25.1 [facility] Work Phone: LV A4C EF 45.6 [facility] Work Phone: LV biplane EF 44 [facility] Work Phone: LVIDd 3.70 [facility] Work Phone: LVOT diam 1.80 [facility] Work Phone: [facility] Work Phone: US Heart [place] [address] [phone], TRANSTHORACIC ECHOCARDIOGRAM REPORT Patient Name: ENOC ARMANDO Reading Physician: [id number] Jose Enrique Molina MD Study Date: 10/11/2023 Ordering Provider: [id number] VERA RIVERA MRN/PID: [id number] Fellow: Nurse: Jana See RN Date of /Age: 2 1945 / 77 years Newswriter: Cecilio Gabriel RDCS Gender: M Additional Staff: Height: 170.18 cm Admit Date: Weight: 71.67 kg Admission Status: Inpatient - Routine BSA: 1.83 m2 Department Location: [address]-ICU Blood Pressure: 141 /71 mmHg Study Type: TRANSTHORACIC ECHO (TTE) COMPLETE Diagnosis/ICD: Acute on chronic systolic (congestive) heart failure (CHF)-I50.23 CPT Codes: Echo Complete w Full Doppler-07084 Study Detail: The following Echo studies were [...] LA Area A2C: 16.2 cm2 LA Major Carrier A4C: 5.3 cm LA Major Carrier A2C: 5.0 cm LA Volume Index: 23.9 ml/m2 LA Vol A4C: 43.7 ml LA Vol A2C: 43.3 ml LV SYSTOLIC FUNCTION BY 2D PLANIMETRY (MOD): Normal Ranges: EF-A4C View: 45.6 % (>=55%) EF-A2C View: 40.9 % EF-Biplane: 44.2 % AORTIC VALVE: Normal Ranges: LVOT Diameter: 1.80 cm (1.8-2.4cm) RIGHT VENTRICLE: RV Basal 3.49 cm RV Mid 2.45 cm RV Major 7.8 cm [id number] Jose Enrique Molina MD Electronically signed on 10/11/2023 at 9:43:19 AM Final Jose Enrique Gardiner MD - 10/11/2023 [place] [address] [phone], TRANSTHORACIC ECHOCARDIOGRAM REPORT Patient Name: ENOC Titus TR Reading Physician: [id number] Jose Enrique Molina MD Study Date: 10/11/2023 Ordering Provider: [id number] VERA RIVERA MRN/PID: [id number] Fellow: Nurse: Jana See RN Date of /Age: 2 1945 / 77 years Newswriter: Cecilio Gabriel RDCS Gender: M Additional Staff: Height: 170.18 cm Admit Date: Weight: 71.67 kg Admission Status: Inpatient - Routine BSA: 1.83 m2 Department Location: [address]-ICU Blood Pressure: 141 /71 mmHg Study Type: TRANSTHORACIC ECHO (TTE) COMPLETE Diagnosis/ICD: Acute on chronic systolic (congestive) heart failure (CHF)-I50.23 CPT Codes: Echo Complete w Full Doppler-34107 Study Detail: The following Echo studies were [...] LA Area A2C: 16.2 cm2 LA Major Carrier A4C: 5.3 cm LA Major Carrier A2C: 5.0 cm LA Volume Index: 23.9 ml/m2 LA Vol A4C: 43.7 ml LA Vol A2C: 43.3 ml LV SYSTOLIC FUNCTION BY 2D PLANIMETRY (MOD): Normal Ranges: EF-A4C View: 45.6 % (>=55%) EF-A2C View: 40.9 % EF-Biplane: 44.2 % AORTIC VALVE: Normal Ranges: LVOT Diameter: 1.80 cm (1.8-2.4cm) RIGHT VENTRICLE: RV Basal 3.49 cm RV Mid 2.45 cm RV Major 7.8 cm [id number] Jose Enrique Molina MD Electronically signed on 10/11/2023 at 9:43:19 AM Final [facility] Work Phone: [phone] Urinalysis complete W Reflex Culture panel (U)on 10-11-2023 Hyaline casts Auto (Urine sed) [#/Area] OCCASIONAL Abnormal NONE /LPF [facility] Interpretation and review of laboratory results Abnormal [facility] RBC Auto (Urine sed) [#/Area] NONE NONE, 1-2, 3-5 /HPF [facility] WBC Auto (Urine sed) [#/Area] NONE 1-5, NONE /HPF [facility] Appearance (U) Clear Clear [facility] Work Phone: [phone] Bilirubin (U) [Mass/Vol] Negative NEGATIVE [facility] Work Phone: )[phone] Color (U) Yellow Straw, Yellow [facility] Work Phone: )[phone] Glucose Auto test strip (U) [Mass/Vol] >=500 (3+) Abnormal NEGATIVE mg/dL [facility] Work Phone: [phone] Interpretation and review of laboratory results Abnormal [facility] Work Phone: )[phone] Ketones (U) [Mass/Vol] 5 (TRACE) Abnormal NEGAT FRANK mg/dL [facility] Work Phone: [phone] Leukocyte esterase Auto test strip Ql (U) Negative NEGATIVE [facility] Work Phone: [phone] Nitrite Auto test strip Ql (U) Negative NEGATIVE [facility] Work Phone: )[phone] pH (U) 5.0 [pH] 5.0, 5.5, 6.0, 6.5, 7.0, 7.5, 8.0 [facility] Work Phone: [phone] Protein (U) [Mass/Vol] 100 (2+) Abnormal NEGAT FRANK mg/dL [facility] Work Phone: [phone] RBC (U) [#/Vol] Negative NEGATIVE [facility] Work Phone: [phone] Specific gravity (U) [Rel density] 1.014 1.005 - 1.035 [facility] Work Phone: Urobilinogen (U) [Mass/Vol] mg/dL NINF - 2.0 mg/dL [facility] Work Phone: [facility] Work Phone: XR Chest Single viewon 10-11 1. Diffuse interstitial and scattered hazy opacities. These are nonspecific and may represent atypical infectious or inflammatory process or possibly edema in the appropriate clinical setting. Component may also be related to chronic parenchymal changes. Recommend follow-up to resolution. Signed by: Kahlil Fagan 10/11/2023 1:33 AM Dictation workstation: [id number] Interpreted By: Kahlil Fagan, STUDY: XR CHEST 1 VIEW; 10/11/2023 1:30 am INDICATION: Signs/Symptoms:Cough . COMPARISON: Chest radiograph 11/04/2012 ACCESSION NUMBER(S): [id number] ORDERING CLINICIAN: AURY ROUSE FINDINGS: SUPPORT DEVICES: [...] . COMPARISON: Chest radiograph 11/04/2012 ACCESSION NUMBER(S): [id number] ORDERING CLINICIAN: AURY ROUSE FINDINGS: SUPPORT DEVICES: [...] Kahlil Fagan 10/11/2023 1:33 AM Dictation workstation: [id number] [facility] Work Phone: Radiology Study observation (narrative) [facility] Work Phone: XR Chest Single viewOrdered By: Kahlil Rylan on 10-11-2023 [facility] Work Phone: US RENAL BILATon 07-30-2023 US RENAL BILAT Patient Name: ENOC ARMANDO STUDY: US RENAL BILAT 07/30/2023 1:11 pm INDICATION: 77 y/o M with CKD N18.9: CKD (chronic kidney disease). COMPARISON: None. ACCESSION NUMBER(S): [id number] ORDERING CLINICIAN: AYANNA ALBERT TECHNIQUE: Grayscale imaging [...] hydronephrosis. Electronically signed by: TENNILLE MAHARAJ MD [facility] Therapy Communicationon 07-03 Therapy Communication Message ENOC [...] (E10.9) Orders Albumin, Urine Spot; Status:Active; Requested for:63Pnp0115; Basic Metabolic Panel; Status:Active; Requested for:21Yho3663; Magnesium, Serum; Status:Active; Requested for:45Lhw1506; Parathormone Intact, Serum; Status:Active; Requested for:08Ahv6589; Phosphorus, Serum; Status:Active; Requested for:38Kxb0472; Ultrasound Kidney Bilateral; Status:Hold For - Scheduling; Requested for:63Khn7989; Radiologist to Determine Optimal Study : Y What are the patient's signs and symptoms? : CKD Uric Acid, Serum; Status:Active; Requested for:52Qyw4890; Urinalysis; Status:Active; Requested for:81Weg0886; Vitamin D 25-Hydroxy; Status:Need Information - ABN Disposition; Requested for:76Zft0537; Patient Discussion/Summary Issues: 1. 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 Normal Hlidacky[facility]cz Tobacco Screening.on 023 Fall risk assessment b) One or more fall s in the last year [facility] Work Phone: Tobacco use status [facility] a) Yes U H [facility] Work Phone: COMPREHENSIVE PANELon 2022 Albumin [Mass/Vol] 3.7 g/dL Normal 3.4 - 5.0 [facility] Comment on above: Performed By: #### C MP #### [address] [address] ALP [Catalytic activity/Vol] 80 U/L Normal 33 - 136 [facility] Comment on above: Performed By: #### C MP #### [address] [address] ALT [Catalytic activity/Vol] 12 U/L Normal 10 - 52 [facility] Comment on above: Result Comment: Twila ents treated with Sulfasalazine may generate falsely decreased results for ALT. Performed By: #### C MP #### [address] [address] Anion gap [Moles/Vol] 10 mmol/L Normal 10 - 20 [facility] Comment on above: Performed By: #### C MP #### [address] [address] AST [Catalytic activity/Vol] 16 U/L Normal 9 - 39 [facility] Comment on above: Performed By: #### C MP #### [address] [address] Bilirubin [Mass/Vol] 0.5 mg/dL Normal 0.0 - 1.2 [facility] [place] Comment on above: Performed By: #### C MP #### [address] [address] Calcium [Mass/Vol] 8.9 mg/dL Normal 8.6 - 10.3 [facility] Comment on above: Performed By: #### C MP #### [address] [address] Chloride [Moles/Vol] 107 mmol/L Normal 98 - 107 [facility] [place] Comment on above: Performed By: #### C MP #### [address] [address] Creatinine [Mass/Vol] 1.85 mg/dL High 0.50 - 1.30 [facility] Comment on above: Performed By: #### C MP #### [address] [address] GFR/1.73 sq M.predicted among non-blacks MDRD (S/P/Bld) [Vol rate/Area] 36 mL/min/{1.73_m2} Abnormal >90 [facility] Comment on above: Result Comment: CALC ULATIONS OF ESTIMATED GFR ARE PERFORMED USING THE 2020 CKD-EPI STUDY REFIT EQUATION WITHOUT THE RACE VARIABLE FOR THE IDMS-TRACEABLE CREATININE METHODS. https://jasn.asnjournals.org/content//ASN.20 80320749 Performed By: #### C MP #### [address] [address] Glucose [Mass/Vol] 347 mg/dL High 74 - 99 [facility] Comment on above: Performed By: #### C MP #### [address] [place] [address] HCO3 (Bld) [Moles/Vol] 27 mmol/L Normal 21 - 32 [facility] Comment on above: Performed By: #### C MP #### [address] [address] Potassium [Moles/Vol] 4.4 mmol/L Normal 3.5 - 5.3 [facility] Comment on above: Performed By: #### C MP #### [address] [address] Protein [Mass/Vol] 6.0 g/dL Low 6.4 - 8.2 [facility] Comment on above: Performed By: #### C MP #### [address] [address] Sodium [Moles/Vol] 140 mmol/L Normal 136 - 145 [facility] Comment on above: Performed By: #### C MP #### [address] [address] Urea nitrogen [Mass/Vol] 31 mg/dL High 6 - 23 [facility] Comment on above: Performed By: #### C MP #### [address] [address] HEMOGLOBIN A1Con 06-11-2023 Glucose [Mass/Vol] 171 mg/dL Normal [facility] Comment on above: Performed By: #### H BA1E #### [address] [address] HbA1c (Bld) [Mass fraction] 7.6 % Abnormal [facility] Comment on above: Result Comment: Diag nosis of Diabetes-Adults Non-Diabetic: < or = 5.6% Increased risk for developing diabetes: 5.7-6.4% Diagnostic of diabetes: > or = 6.5% . Monitoring of Diabetes Age (y) Therapeutic Goal (%) Adults: >18 <7.0 Pediatrics: 13-18 <7.5 7-12 <8.0 0- 6 7.5-8.5 [employer]. Diabetes Care 33(S1), Nov 2009. Performed By: #### H BA1E #### [address] [address] ALBUMIN, URINE SPOTon 2022 ALBUMIN,URINE 195.3 mg/L Normal Not Established [facility] Comment on above: Performed By: #### A LBSP ####[id number] [place] [address] ALBUMIN/CREAT RATIO 212.5 ug/mg locomotive engineer diesel High 0.0 - 30.0 [facility] Comment on above: Performed By: #### A LBSP ####[id number] [place] [address] CREATININE,URINE 91.9 mg/dL Normal 20.0 - 370.0 [facility] Comment on above: Performed By: #### A LBSP ####[id number] [place] [address] CBC AND DIFFERENTIALon 02-12 % AUTOMATED IMMATURE GRAN 0.3 % Normal 0.0 - 0.9 [facility] Comment on above: Result Comment: Arielle ture Granulocyte Count (IG) includes promyelocytes, myelocytes and metamyelocytes but does not include bands. Percent differential counts (%) should be interpreted in the context of the absolute cell counts (cells/L). Performed By: #### C BCDF #### [address] [address] Basophils (Bld) [#/Vol] 0.09 10*3/uL Normal 0.00 - 0.1 0 [facility] Comment on above: Performed By: #### C BCDF #### [address] [address] Basophils/100 WBC (Bld) 1.2 % Normal 0.0 - 2.0 [facility] Comment on above: Performed By: #### C BCDF #### [address] [address] Eosinophils (Bld) [#/Vol] 0.40 10*3/uL Normal 0.00 - 0 .40 [facility] Comment on above: Performed By: #### C BCDF #### [address] [address] Eosinophils/100 WBC (Bld) 5.2 % Normal 0.0 - 6.0 [facility] Comment on above: Performed By: #### C BCDF #### [address] [address] Erythrocyte distribution width (RBC) [Ratio] 13.1 % Normal 11.5 - 14.5 [facility] Comment on above: Performed By: #### C BCDF #### [address] [address] Hematocrit (Bld) [Volume fraction] 39.5 % Low 41.0 - 52.0 [facility] Comment on above: Performed By: #### C BCDF #### [address] [address] Hemoglobin (Bld) [Mass/Vol] 12.6 g/dL Low 13.5 - 17.5 [facility] Comment on above: Performed By: #### C BCDF #### [address] [address] Lymphocytes (Bld) [#/Vol] 1.68 10*3/uL Normal 0.80 - 3 .00 [facility] Comment on above: Performed By: #### C BCDF #### [address] [address] Lymphocytes/100 WBC (Bld) 21.9 % Normal 13.0 - 44. 0 [facility] Comment on above: Performed By: #### C BCDF #### [address] [address] MCHC (RBC) [Mass/Vol] 31.9 g/dL Low 32.0 - 36.0 [facility] Comment on above: Performed By: #### C BCDF #### [address] [address] MCV (RBC) [Entitic vol] 95 fL Normal 80 - 100 [facility] Comment on above: Performed By: #### C BCDF #### [address] [address] Monocytes (Bld) [#/Vol] 0.57 10*3/uL Normal 0.05 - 0.8 0 [facility] Comment on above: Performed By: #### C BCDF #### [address] [address] Monocytes/100 WBC (Bld) 7.4 % Normal 2.0 - 10.0 [facility] Comment on above: Performed By: #### C BCDF #### [address] [address] Neutrophils (Bld) [#/Vol] 4.91 10*3/uL Normal 1.60 - 5 .50 [facility] Comment on above: Result Comment: Perc ent differential counts (%) should be interpreted in the context of the absolute cell counts (cells/L). Performed By: #### C BCDF #### [address] [address] Neutrophils/100 WBC (Bld) 64.0 % Normal 40.0 - 80. 0 [facility] Comment on above: Performed By: #### C BCDF #### [address] [address] Platelets (Bld) [#/Vol] 229 10*3/uL Normal 150 - 450 [facility] Comment on above: Performed By: #### C BCDF #### [address] [address] RBC 4.18 x10E12/L Low 4.50 - 5.90 [facility] Comment on above: Performed By: #### C BCDF #### [address] [address] WBC (Bld) [#/Vol] 7.7 10*3/uL Normal 4.4 - 11.3 [facility] Comment on above: Performed By: #### C BCDF #### [address] [address] COMPREHENSIVE PANELon 2022 Albumin [Mass/Vol] 4.0 g/dL Normal 3.4 - 5.0 [facility] Comment on above: Performed By: #### C MP #### [address] [address] ALP [Catalytic activity/Vol] 79 U/L Normal 33 - 136 [facility] Comment on above: Performed By: #### C MP #### [address] [address] ALT [Catalytic activity/Vol] 12 U/L Normal 10 - 52 [facility] Comment on above: Result Comment: Twila ents treated with Sulfasalazine may generate falsely decreased results for ALT. Performed By: #### C MP #### [address] [address] Anion gap [Moles/Vol] 10 mmol/L Normal 10 - 20 [facility] Comment on above: Performed By: #### C MP #### [address] [address] AST [Catalytic activity/Vol] 13 U/L Normal 9 - 39 [facility] Comment on above: Performed By: #### C MP #### [address] [address] Bilirubin [Mass/Vol] 0.6 mg/dL Normal 0.0 - 1.2 [facility] [place] Comment on above: Performed By: #### C MP #### [address] [address] Calcium [Mass/Vol] 9.4 mg/dL Normal 8.6 - 10.3 [facility] Comment on above: Performed By: #### C MP #### [address] [address] Chloride [Moles/Vol] 105 mmol/L Normal 98 - 107 [facility] [place] Comment on above: Performed By: #### C MP #### [address] [address] Creatinine [Mass/Vol] 1.69 mg/dL High 0.50 - 1.30 [facility] Comment on above: Performed By: #### C MP #### [address] [address] GFR/1.73 sq M.predicted among non-blacks MDRD (S/P/Bld) [Vol rate/Area] 41 mL/min/{1.73_m2} Abnormal >90 [facility] Comment on above: Result Comment: CALC ULATIONS OF ESTIMATED GFR ARE PERFORMED USING THE 2020 CKD-EPI STUDY REFIT EQUATION WITHOUT THE RACE VARIABLE FOR THE IDMS-TRACEABLE CREATININE METHODS. https://jasn.asnjournals.org/content//ASN.20 22984104 Performed By: #### C MP #### [address] [address] Glucose [Mass/Vol] 253 mg/dL High 74 - 99 [facility] Comment on above: Performed By: #### C MP #### [address] [address] HCO3 (Bld) [Moles/Vol] 28 mmol/L Normal 21 - 32 [facility] Comment on above: Performed By: #### C MP #### [address] [address] Potassium [Moles/Vol] 4.8 mmol/L Normal 3.5 - 5.3 [facility] Comment on above: Performed By: #### C MP #### [address] [address] Protein [Mass/Vol] 6.4 g/dL Normal 6.4 - 8.2 [facility] Comment on above: Performed By: #### C MP #### [address] [address] Sodium [Moles/Vol] 138 mmol/L Normal 136 - 145 [facility] Comment on above: Performed By: #### C MP #### [address] [address] Urea nitrogen [Mass/Vol] 25 mg/dL High 6 - 23 [facility] Comment on above: Performed By: #### C MP #### [address] [address] HEMOGLOBIN A1Con 02-12-2023 Glucose [Mass/Vol] 174 mg/dL Normal [facility] Comment on above: Performed By: #### H BA1E #### [address] [address] HbA1c (Bld) [Mass fraction] 7.7 % Abnormal [facility] Comment on above: Result Comment: Diag nosis of Diabetes-Adults Non-Diabetic: < or = 5.6% Increased risk for developing diabetes: 5.7-6.4% Diagnostic of diabetes: > or = 6.5% . Monitoring of Diabetes Age (y) Therapeutic Goal (%) Adults: >18 <7.0 Pediatrics: 13-18 <7.5 7-12 <8.0 0- 6 7.5-8.5 [employer]. Diabetes Care 33(S1), Nov 2009. Performed By: #### H BA1E #### [address] [address] LIPID PANEL (CORONARY RISK 2 )on 02-12-2023 Cholesterol [Mass/Vol] 154 mg/dL Normal 0 - 199 [facility] Comment on above: Result Comment: . AGE [...] dosing. Performed By: #### L IPID #### [address] [address] Cholesterol in HDL [Mass/Vol] 43.0 mg/dL Normal [facility] Comment on above: Result Comment: . AGE VERY LOW LOW NORMAL HIGH 0-19 Y < 35 < 40 40-45 ---- 20-24 Y ---- < 40 >45 ---- >24 Y ---- < 40 40-60 >60 . Performed By: #### L IPID #### [address] [address] Cholesterol in LDL [Mass/Vol] 96 mg/dL Normal 0 - 99 [facility] Comment on above: Result Comment: . NEAR BORD AGE DESIRABLE OPTIMAL HIGH HIGH VERY HIGH 0-19 Y 0 - 109 --- 110-129 >/= 130 ---- 20-24 Y 0 - 119 --- 120-159 >/= 160 ---- >24 Y 0 - 99 100-129 130-159 160-189 >/=190 . Performed By: #### L IPID #### [address] [address] Cholesterol in VLDL [Mass/Vol] 15 mg/dL Normal 0 - 40 [facility] Comment on above: Performed By: #### L IPID #### [address] [address] Cholesterol.total/Cholest santos in HDL [Mass ratio] 3.6 {ratio} Normal [facility] Comment on above: Result Comment: REF VALUES DESIRABLE < 3.4 HIGH RISK > 5.0 Performed By: #### L IPID #### [address] [address] Triglyceride [Mass/Vol] 77 mg/dL Normal 0 - 149 [facility] Comment on above: Result Comment: . [...] dosing. Performed By: #### L IPID #### [address] [address] PROSTATE SPEC.AG,SCREENon PROSTATE SPEC.AG,SCREEN 3.14 ng/mL Normal 0.00 - 4.00 [facility] Comment on above: Result Comment: The FDA requires that the method used for PSA assay be reported to the physician. Values obtained with different assay methods must not be used interchangeably. This test was performed at [facility] using the [place] PSA assay is a two-site immunoenzymatic sandwich assay. The assay is approved for measurement of prostate-specific antigen (PSA)in serum and may be used in conjunction with a digital rectal examination in men 50 years and older as an aid in detection of prostate cancer. 2-Scsop-ymymosiaq inhibitors (e.g. Proscar, Finasteride, Avodart, Dutasteride and Alma Rosa) for the treatment of BPH have been shown to lower PSA levels by an average of 50% after 6 months of treatment. Performed By: #### P SAS #### [address] [address] THYROXINE,FREEon 02-12-2023 THYROXINE,FREE 1.16 ng/dL High 0.61 - 1.12 [facility] Comment on above: Result Comment: Thyr oxine Free testing is performed using different testing methodology at [facility] than at other [facility]. Direct result comparisons should only [...] draw. Performed By: #### T 4FRE #### [address] [address] TSHon 02-12-2023 TSH Qn 0.73 m[IU]/L Normal 0.44 - 3.98 [facility] Comment on above: Result Comment: TSH testing is performed using different testing methodology at [facility] than at other [facility]. Direct result comparisons should only be made within the same method. Performed By: #### T SH2 #### [address] [address] PT Progress Noteon 3 PT Progress Note [...] . the patient will continue therapy at [place]. Potential to achieve rehab goals is fair: [...] Declined. Insurance Insurance reviewed Visit number: 10 [facility] Evaluating therapist Shoaib Bhandari PT. The [...] code time is 30 minutes. Therapeutic exercise (10698):. Not Today 01/25/23 NuStep 5? Slant board [...] 10 x 10? hold (N). Manual Therapy (38524): timed minutes 15, units 1 . STW to glutes and QL and IT band, hip flexor. Modalities: untimed minutes 15, units 1 . IFC to R Lumbar/Glute region x 10' in S/L w/ MHP. 'Scores and Scales' Signatures Electronically signed by : Zoila Lopez, INFORMATION TECHNOLOGY ADMINISTRATOR; Jan 25 2023 5:14PM EST (Author) Electronically [...] . the patient will continue therapy at [place]. Potential to achieve rehab goals is fair: [...] reviewed Visit number: 9 [facility] Evaluating therapist Sohaib Bhandari PT. The physical therapist of record [...] code time is 35 minutes. Therapeutic exercise (42612): timed minutes 20, units 1 . Pt [...] . the patient will continue therapy at [place]. Potential to achieve rehab goals is fair: [...] Declined. Insurance Insurance reviewed Visit number: 9 [facility] Evaluating therapist Shoaib Bhandari PT. The [...] code time is 35 minutes. Therapeutic exercise (38887): timed minutes 20, units 1 . Pt [...] . the patient will continue therapy at [place]. Potential to achieve rehab goals is fair: [...] code time is 38 minutes. Therapeutic exercise (30834): timed minutes 26, units 2 . NuStep [...] 30? D/C to HEP . Manual Therapy (81176): timed minutes 12, units 1 . STW to glutes and QL and IT band. Provided today:. 12/25/22 [id number] Provided and reviewed HEP, patient demosntrated good [...] . the patient will continue therapy at [place]. Potential to achieve rehab goals is fair: [...] Declined. Insurance Insurance reviewed Visit number: 7 [facility] Evaluating therapist Shoaib Bhandari PT. The [...] code time is 38 minutes. Therapeutic exercise (97331): timed minutes 26, units 2 . NuStep [...] 30? D/C to HEP . Manual Therapy (53835): timed minutes 12, units 1 . STW to glutes and QL and IT band. Provided today:. 12/25/22 [id number] Provided and reviewed HEP, patient demosntrated good understanding. 'Scores and Scales' Signatures Electronically signed by : Chaya Chan, INFORMATION TECHNOLOGY ADMINISTRATOR; Jan 13 2023 11:01AM EST (Author) Electronically [...] . the patient will continue therapy at [place]. Potential to achieve rehab goals is fair: [...] Declined. Insurance Insurance reviewed Visit number: 6 [facility] Evaluating therapist Shoaib Bhandari PT. The [...] code time is 43 minutes. Therapeutic exercise (06297): timed minutes 32, units 2 . NuStep [...] x 10 Green band . Manual Therapy (53503): timed minutes 11, units 1 . STW to glutes and QL 10'. Provided today:. 12/25/22 [id number] Provided and reviewed HEP, patient demosntrated good understanding. 'Scores and Scales' Signatures Electronically signed by : Chaya Chan, INFORMATION TECHNOLOGY ADMINISTRATOR; Jan 08 2023 10:51AM EST (Author) Electronically [...] . the patient will continue therapy at [place]. Potential to achieve rehab goals is fair: [...] code time is 44 minutes. Therapeutic exercise (54815): timed minutes 34, units 2 . NuStep [...] 10 Green band (N) . Manual Therapy (58435): timed minutes 10, units 1 . STW to glutes and QL 10'. Provided today:. 12/25/22 [id number] Provided and reviewed HEP, patient demosntrated good understanding. 'Scores and Scales' Signatures Electronically signed by : Zoila Lopez, INFORMATION TECHNOLOGY ADMINISTRATOR; Jan 06 2023 12:41PM EST (Author) Electronically [...] . the patient will continue therapy at [place]. Potential to achieve rehab goals is fair: [...] code time is 44 minutes. Therapeutic exercise (23949): timed minutes 34, units 2 . NuStep [...] x 10 orange band . Manual Therapy (39923): timed minutes 10, units 1 . STW to glutes and QL 10'. Provided today:. 12/25/22 [id number] Provided and reviewed HEP, patient demosntrated good understanding. 'Scores and Scales' Signatures Electronically signed by : Zoila Lopez INFORMATION TECHNOLOGY ADMINISTRATOR; Jan 01 2023 12:56PM EST (Author) Electronically [...] . the patient will continue therapy at [place]. Potential to achieve rehab goals is fair: [...] code time is 44 minutes. Therapeutic exercise (44897): timed minutes 34, units 2 . NuStep [...] x 10 orange band . Manual Therapy (43983): timed minutes 10, units 1 . STW to glutes and QL 10'. Provided today:. 12/25/22 [id number] Provided and reviewed HEP, patient demosntrated good understanding. 'Scores and Scales' Signatures Electronically signed by : Zoila Lopez, INFORMATION TECHNOLOGY ADMINISTRATOR; Dec 30 2022 5:01PM EST (Author) Electronically [...] . the patient will continue therapy at [place]. Potential to achieve rehab goals is fair: [...] Declined. Insurance Insurance reviewed Visit number: 2 [facility] Evaluating therapist Shoaib Bhandari PT. The [...] code time is 41 minutes. Therapeutic exercise (44856): timed minutes 31, units 2 . NuStep 5? start wall lean n mini squat x10 LTR x10 5? hold Piriformis stretch 3 x 30? Supine QL stretch 3 x 30? Hip flex stretch EOB TrA x10 5? hold Hooklying TrA/hip add ball 2 x 10 3? hold Hooklying TrA/hip abd 2 x 10 orange band . Manual Therapy (90130): timed minutes 10, units 1 . STW to gluts and QL. Provided today:. 12/25/22 [id number] Provided and reviewed HEP, patient demosntrated good [...] . the patient will continue therapy at [place]. 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 Assessment At least a 5 yr HX of LBP (previous HX of sciatica). No recent film studies have been done. He will be a low fall risk. The patient will continue his therapy at [place]. Physical findings include limited trunk ROM with [...] Declined. Insurance Insurance reviewed Visit number: 1 [facility] Evaluating therapist Shoaib Bhandari PT. The [...] Impact Care:. ID confirmed with B-day; speaks mohawk No obtrusive barriers to learning identified/observed. Objective [...] am Time (more content not included)... Normal [email or web address] US DOPPLER CAROTIDOrdered By : Mary Vargas on 02-26-2021 Patient Info Name: ENOC ARMANDO Age: 75 years : 1945 Gender: Male Exam Date: 02/26/2021 1:55 PM Patient Status: Outpatient Family Dinner Service Specialist: Melissa Swift BS, RDMS (AB), RVT Referring Physician: MARY VARGAS ; Indications I65.23 - Occlusion and stenosis of bilateral carotid arteries Procedure Description 83339 Duplex examination using B-mode, color and spectral [...] noted in the (more content not included)... [facility], Rad In Heartlab Xper Echopacs - 02/26/2021 4:33 PM EDT Patient Info Name: ENOC ARMANDO Age: 75 years : 1945 Gender: Male Exam Date: 02/26/2021 1:55 PM Patient Status: Outpatient Family Dinner Service Specialist: Melissa Swift, TAMMI, RDMS (AB), RVT Referring Physician: MARY VARGAS ; Indications I65.23 - Occlusion and stenosis of bilateral carotid arteries Procedure Description 02679 Duplex examination using B-mode, color and spectral [...] JO-ANN Nguyen DO on 02/26/2021 04:31 PM [facility] Auto Diffon 07-04-2019 Basophils (Bld) [#/Vol] 0.1 E3/mcL Normal 0.0-0.2 [facility] Comment on above: Order Comment: Order Added by Discern Expert. Performed By: #### 2 [id number] #### MIKE [employer] [address] [place] [address] Basophils/100 WBC (Bld) 1.2 % Normal 0.0-2.0 [facility] Comment on above: Order Comment: Order Added by Discern Expert. Performed By: #### 2 063449 #### MIKE [employer] [address] [place] [address] Eos Absolute 0.2 E3/mcL Normal 0.0-0.7 [facility] Comment on above: Order Comment: Order Added by Discern Expert. Performed By: #### 2 [id number] #### [facility] [address] [place] [address] Eosinophils/100 WBC (Bld) 2.0 % Normal 0.0-11.0 [facility] Comment on above: Order Comment: Order Added by Discern Expert. Performed By: #### 2 780062 #### MIKE [employer] [address] [place] [address] Lymphocytes (Bld) [#/Vol] 1.7 E3/mcL Normal 1.2-3.4 [facility] Comment on above: Order Comment: Order Added by Andrew Expert. Performed By: #### 2 053613 #### MIKE [employer] [address] [place] [address] Lymphocytes/100 WBC (Bld) 20.9 % Normal 20.0-55.0 [facility] Comment on above: Order Comment: Order Added by Discern Expert. Performed By: #### 2 763082 #### MIKE [employer] [address] [place] [address] [place] Absolute 0.7 E3/mcL Normal 0.0-0.7 [facility] Comment on above: Order Comment: Order Added by Discern Expert. Performed By: #### 2 283682 #### MIKE [employer] [address] [place] [address] Monocytes/100 WBC (Bld) 8.0 % Normal 0.0-10.0 [facility] Comment on above: Order Comment: Order Added by Discern Expert. Performed By: #### 2 176881 #### MIKE [employer] [address] [place] [address] Neutro Absolute 5.5 E3/mcL Normal 1.4-6.5 [facility] Comment on above: Order Comment: Order Added by Discern Expert. Performed By: #### 2 522307 #### MIKE [employer] [address] [place] [address] Neutro Auto 67.9 % Normal 37.0-75.0 [facility] Comment on above: Order Comment: Order Added by Discern Expert. Performed By: #### 2 625903 #### MIKE [employer] [address] [place] [address] CBC w/ Auto Diffon Erythrocyte distribution width (RBC) [Ratio] 13.3 % Normal 11.5-14.5 [facility] Comment on above: Performed By: #### 2 073745 #### MIKE Zazueta [address] [place] [address] Hematocrit (Bld) [Volume fraction] 40.4 % Low 42.0-52.0 [facility] Comment on above: Performed By: #### 2 949652 #### MIKE [employer] [facility] [place] [address] Hemoglobin (Bld) [Mass/Vol] 13.6 g/dL Normal 13.5-18.0 [facility] Comment on above: Performed By: #### 2 893188 #### MIKE [employer] [address] [place] [address] MCH (RBC) [Entitic mass] 31.6 pg High 27.0-31.0 [facility] Comment on above: Performed By: #### 2 263493 #### MIKE [employer] [address] [place] [address] 57145 MCHC (RBC) [Mass/Vol] 33.7 g/dL Normal 33.0-37.0 [facility] Comment on above: Performed By: #### 2 595983 #### MIKE [employer] [facility] [place] [address] MCV (RBC) [Entitic vol] 93.8 fL Normal 78.0-100.0 [facility] Comment on above: Performed By: #### 2 840283 #### [employer]KE [employer] [address] [place] [address] Platelet mean volume (Bld) [Entitic vol] 10.2 fL Normal 7.4-11.0 [facility] Comment on above: Performed By: #### 2 674441 #### MIKE [employer] [address] [place] [address] Platelets (Bld) [#/Vol] 218 E3/mcL Normal 130-400 [facility] Comment on above: Performed By: #### 2 193590 #### [employer]KE [employer] [address] [place] [address] RBC (Bld) [#/Vol] 4.31 E6/mcL Normal 3.90-6.10 [facility] Comment on above: Performed By: #### 2 856213 #### MIKE Zazueta [address] [place] [address] WBC (Bld) [#/Vol] 8.1 E3/mcL Normal 3.6-11.0 [facility] Comment on above: Performed By: #### 2 279162 #### MIKE Zazueta [address] [place] [address] CMPon 07-04-2019 Albumin [Mass/Vol] 4.2 g/dL Normal 3.4-5.0 [facility] Comment on above: Performed By: #### 2 592450 #### MIKE [employer] [facility] [place] [address] Albumin/Globulin [Mass ratio] 1.8 {ratio} Normal 1.1-1.9 [facility] Comment on above: Performed By: #### 2 233543 #### MIKEAnabelle RodriguezN[employer] [address] [place] [address] Alk Phos 81 Int._Unit/L Normal 33-136 [facility] Comment on above: Performed By: #### 2 062990 #### MIKE [employer] [address] [place] [address] ALT [Catalytic activity/Vol] 15 Int._Unit/L Normal 10-52 [facility] Comment on above: Performed By: #### 2 863323 #### [employer] [address] [place] [address] Anion gap [Moles/Vol] 12 mmol/L Normal 10-20 [facility] Comment on above: Performed By: #### 2 559649 #### MIKEAnabelle [employer] [address] [place] [address] AST [Catalytic activity/Vol] 18 Int._Unit/L Normal 9-39 [facility] Comment on above: Performed By: #### 2 315826 #### MIKEAnabelle [employer] [address] [place] [address] Bili Total 0.35 mg/dL Normal 0.00-1.20 [facility] Comment on above: Performed By: #### 2 562743 #### [employer]KE [employer] [address] [place] [address] Calcium [Mass/Vol] 9.5 mg/dL Normal 8.6-10.3 [facility] Comment on above: Performed By: #### 2 980546 #### [employer]KE [employer] [address] [place] [address] Chloride [Moles/Vol] 108 mmol/L High 98-[address] [facility] Comment on above: Performed By: #### 2 841947 #### [employer] [address] [place] [address] CO2 [Moles/Vol] 27.0 mmol/L Normal 21.0-32.0 [facility] Comment on above: Performed By: #### 2 579384 #### [employer]KE [employer] [address] [place] [address] Creatinine [Mass/Vol] 1.0 mg/dL Normal 0.5-1.3 [facility] Comment on above: Performed By: #### 2 040638 #### [employer]KE [employer] [address] [place] [address] Globulin (S) [Mass/Vol] 2.0 g/dL Normal 2.0-4.0 [facility] Comment on above: Performed By: #### 2 800117 #### [employer]KE [employer] [address] [place] [address] Glucose [Mass/Vol] 159 mg/dL High 70-99 [facility] Comment on above: Performed By: #### 2 212363 #### [employer] [address] [place] [address] Potassium [Moles/Vol] 3.7 mmol/L Normal 3.5-5.3 [facility] Comment on above: Performed By: #### 2 165207 #### [employer] [address] [place] [address] Protein [Mass/Vol] 6.5 g/dL Normal 6.4-8.2 [facility] Comment on above: Performed By: #### 2 813779 #### [employer] [address] [place] [address] Sodium [Moles/Vol] 143 mmol/L Normal 136-145 [facility] Comment on above: Performed By: #### 2 484238 #### [employer] [address] [place] [address] Urea nitrogen [Mass/Vol] 19 mg/dL Normal 6-23 [facility] Comment on above: Performed By: #### 2 428840 #### [employer] [address] [place] [address] Urea nitrogen/Creatinine [Mass ratio] 19.0 ratio Normal 5.4-30.0 [facility] Comment on above: Performed By: #### 2 207642 #### [employer] [address] [place] [address] [id number] 07-04-2019 HbA1c (Bld) [Mass fraction] 8.3 % High 4.0-6.3 [facility] Comment on above: Performed By: #### 2 709440 #### [employer] [address] [place] [address] eGFRon 07-04-2019 GFR/1.73 sq M predicted among non-blacks MDRD (S/P/Bld) [Vol rate/Area] mL/min/{1.73_m2} Normal [facility] Comment on above: Order Comment: Order added by Discern Expert. Performed By: #### 2 062291 #### [employer] [address] [place] [address] Auto Diffon 03-03-2019 Basophils (Bld) [#/Vol] 0.1 E3/mcL Normal 0.0-0.2 [facility] Comment on above: Order Comment: Order Added by Discern Expert. Performed By: #### 2 241272 #### MIKE RodriguezH[employer] [address] [place] [address] Basophils/100 WBC (Bld) 1.0 % Normal 0.0-2.0 [facility] Comment on above: Order Comment: Order Added by Discern Expert. Performed By: #### 2 569859 #### MIKE [employer] [address] [place] [address] Eos Absolute 0.2 E3/mcL Normal 0.0-0.7 [facility] Comment on above: Order Comment: Order Added by Discern Expert. Performed By: #### 2 430947 #### MIKE [employer] [address] [place] [address] Eosinophils/100 WBC (Bld) 2.6 % Normal 0.0-11.0 [facility] Comment on above: Order Comment: Order Added by Discern Expert. Performed By: #### 2 542541 #### MIKE [employer] [address] [place] [address] Lymphocytes (Bld) [#/Vol] 2.0 E3/mcL Normal 1.2-3.4 [facility] Comment on above: Order Comment: Order Added by Discern Expert. Performed By: #### 2 684486 #### MIKE [employer] [address] [place] [address] Lymphocytes/100 WBC (Bld) 26.7 % Normal 20.0-55.0 [facility] Comment on above: Order Comment: Order Added by Discern Expert. Performed By: #### 2 700435 #### MIKE [employer] [address] [place] [address] [place] Absolute 0.7 E3/mcL Normal 0.0-0.7 [facility] Comment on above: Order Comment: Order Added by Discern Expert. Performed By: #### 2 853864 #### MIKE [employer] [address] [place] [address] Monocytes/100 WBC (Bld) 9.4 % Normal 0.0-10.0 [facility] Comment on above: Order Comment: Order Added by Discern Expert. Performed By: #### 2 818382 #### MIKE [employer] [address] [place] [address] Neutro Absolute 4.5 E3/mcL Normal 1.4-6.5 [facility] Comment on above: Order Comment: Order Added by Discern Expert. Performed By: #### 2 794096 #### MIKE [employer] [address] [place] [address] Neutro Auto 60.3 % Normal 37.0-75.0 [facility] Comment on above: Order Comment: Order Added by Discern Expert. Performed By: #### 2 996833 #### MIKE Ackermano [facility] [place] [address] CBC w/ Auto Diffon Erythrocyte distribution width (RBC) [Ratio] 13.2 % Normal 11.5-14.5 [facility] Comment on above: Performed By: #### 2 532426 #### MIKE Ackermano [address] [place], [place] [address] Hematocrit (Bld) [Volume fraction] 41.7 % Low 42.0-52.0 [facility] Comment on above: Performed By: #### 2 187041 #### MIKE [place] [id number] Hemoglobin (Bld) [Mass/Vol] 14.1 g/dL Normal 13.5-18.0 [facility] Comment on above: Performed By: #### 2 462272 #### MIKE RodriguezHemo [address] [place], [place] [address] MCH (RBC) [Entitic mass] 31.5 pg High 27.0-31.0 [facility] Comment on above: Performed By: #### 2 429025 #### MIKE [place]erman[place] [address] MCHC (RBC) [Mass/Vol] 33.7 g/dL Normal 33.0-37.0 [facility] Comment on above: Performed By: #### 2 291307 #### MIKE RodriguezHemo [address] [place] [address] MCV (RBC) [Entitic vol] 93.5 fL Normal 78.0-100.0 [facility] Comment on above: Performed By: #### 2 406408 #### MIKE RodriguezHemo [address] [place] [address] 00468 Platelet mean volume (Bld) [Entitic vol] 10.0 fL Normal 7.4-11.0 [facility] Comment on above: Performed By: #### 2 303210 #### MIKE RodriguezHemo [address] [place], [place] [address] Platelets (Bld) [#/Vol] 218 E3/mcL Normal 130-400 [facility] Comment on above: Performed By: #### 2 764911 #### MIKE RodriguezH[employer] [address] [place], [place] [address] RBC (Bld) [#/Vol] 4.46 E6/mcL Normal 3.90-6.10 [facility] Comment on above: Performed By: #### 2 659586 #### MIKE RemH[employer] [address] [place], [place] [address] WBC (Bld) [#/Vol] 7.5 E3/mcL Normal 3.6-11.0 [facility] Comment on above: Performed By: #### 2 416877 #### MIKE JenniferHemo [address] [place], [place] [address] CMPon 03-03-2019 Albumin [Mass/Vol] 4.1 g/dL Normal 3.4-5.0 [facility] Comment on above: Performed By: #### 2 309015 #### MIKE [employer] [address] [place], [place] [address] Albumin/Globulin [Mass ratio] 1.6 {ratio} Normal 1.1-1.9 [facility] Comment on above: Performed By: #### 2 142286 #### MIKE [employer] [address] [place], [place] [address] Alk Phos 83 Int._Unit/L Normal 33-136 [facility] Comment on above: Performed By: #### 2 007453 #### MIKE [employer] [address] [place], [place] [address] ALT [Catalytic activity/Vol] 13 Int._Unit/L Normal 10-52 [facility] Comment on above: Performed By: #### 2 260281 #### MIKE [employer] [address] [place], [place] [address] Anion gap [Moles/Vol] 9 mmol/L Low 10-20 [facility] Comment on above: Performed By: #### 2 379873 #### MIKE [employer] [address] [place], [place] [address] AST [Catalytic activity/Vol] 16 Int._Unit/L Normal 9-39 [facility] Comment on above: Performed By: #### 2 904920 #### MIKE [employer] [address] [place] [address]556 Bili Total 0.55 mg/dL Normal 0.00-1.20 [facility] Comment on above: Performed By: #### 2 461853 #### MIKE [employer] [address] [place] [address] 70590 Calcium [Mass/Vol] 9.3 mg/dL Normal 8.6-10.3 [facility] Comment on above: Performed By: #### 2 359494 #### MIKE [employer] [address] [place] [address] 22199 Chloride [Moles/Vol] 105 mmol/L Normal 98-[address] [facility] Comment on above: Performed By: #### 2 435601 #### MIKE [employer] [address] [place] [address] 06810 CO2 [Moles/Vol] 28.0 mmol/L Normal 21.0-32.0 [facility] Comment on above: Performed By: #### 2 930308 #### MIKE [employer] [address] [place] [address] 27858 Creatinine [Mass/Vol] 1.0 mg/dL Normal 0.5-1.3 [facility] Comment on above: Performed By: #### 2 290289 #### MIKE [employer] [address] [place] [address] 66[address] Globulin (S) [Mass/Vol] 3.0 g/dL Normal 2.0-4.0 [facility] Comment on above: Performed By: #### 2 676207 #### MIKE [employer] [address] [place] [address] 65832 Glucose [Mass/Vol] 273 mg/dL High 70-99 [facility] Comment on above: Performed By: #### 2 191628 #### MIKE [employer] [address] [place] [address] 26690 Potassium [Moles/Vol] 4.2 mmol/L Normal 3.5-5.3 [facility] Comment on above: Performed By: #### 2 829806 #### MIKE [employer] [address] [place] [address] 70756 Protein [Mass/Vol] 6.6 g/dL Normal 6.4-8.2 [facility] Comment on above: Performed By: #### 2 066790 #### MIKE [employer] [address] [place] [address] 90042 Sodium [Moles/Vol] 138 mmol/L Normal 136-145 [facility] Comment on above: Performed By: #### 2 692897 #### MIKE [employer] [address] [place] [address] 50706 Urea nitrogen [Mass/Vol] 20 mg/dL Normal 6-23 [facility] Comment on above: Performed By: #### 2 088093 #### MIKE [employer] [address] [place] [address] 70841 Urea nitrogen/Creatinine [Mass ratio] 20.0 ratio Normal 5.4-30.0 [facility] Comment on above: Performed By: #### 2 956724 #### MIKE [employer] [address] [place] [address] 98290 Free T4on 03-03-2019 Free T4 [Mass/Vol] 0.98 ng/dL Normal 0.58-1.64 [facility] Comment on above: Performed By: #### 2 535660 #### MIKE [employer] [address] [place] [address] 06354 [id number] 03-03-2019 HbA1c (Bld) [Mass fraction] 8.4 % High 4.0-6.3 [facility] Comment on above: Performed By: #### 2 043155 #### MIKE [employer] [address] [place] [address] 99574 Lipid Profileon 03-03-2019 Cholesterol [Mass/Vol] 164 mg/dL Normal 0-199 [facility] Comment on above: Result Comment: TOTA L CHOLEESTEROL: <200 NORMAL 200 - 239 BORDERLINE HIGH >240 HIGH Performed By: #### 2 905087 #### MIKE [employer] [facility] [place] [address] Cholesterol in HDL [Mass/Vol] 53 mg/dL Normal 40-60 [facility] Comment on above: Performed By: #### 2 628954 #### MIKE [employer] [facility] [facility] [place] [address] Cholesterol in LDL [Mass/Vol] 98 mg/dL Normal 0-130 [facility] Comment on above: Result Comment: <100 OPTIMAL 100-129 NEAR / ABOVE OPTIMAL 130-159 BORDERLINE HIGH 160-189 HIGH >190 VERY HIGH CALC LDL NOT VALID WHEN TRIGLYCERIDE IS >400 MG/DL Performed By: #### 2 [id number] #### MIKE [employer] [facility] [place] [address] Cholesterol in VLDL [Mass/Vol] 13 mg/dL Normal 0-40 [facility] Comment on above: Performed By: #### 2 [id number] #### [employer] [facility] [place] [address] Triglyceride [Mass/Vol] 66 mg/dL Normal 0-149 [facility] Comment on above: Result Comment: AGE DESIRABLE BORDERLINE HIGH 91 D - 9 Y 0 - 74 75 - 99 > 100 10 - 19 Y 0 - 89 90 - 129 > 130 20 -24 Y 0 - 114 115 - 149 > 150 > 25 0 - 149 150 - 199 200 - 499 Performed By: #### 2 [id number] #### [employer]KE [employer] [address] [place] [address]32[address] Microalb/Creat Ratioon 03-03 Creatinine [Mass/Vol] 111.0 mg/dL Normal 20.0-300.0 [facility] Comment on above: Performed By: #### 1 [id number] #### MIKE [employer] [address] [place] [address] Creatinine [Mass/Vol] 95 ug/mg High 0-30 [facility] Comment on above: Performed By: #### 1 [id number] #### [employer] [address] [place] [address] Ur Microalbumin 10.6 mg/dL High 0.0-1.9 [facility] Comment on above: Performed By: #### 1 [id number] #### [employer]KE [employer] [address] [place] [address]14 TSHon 03-03-2019 TSH Qn 0.52 mcIU/mL Normal 0.30-5.60 [facility] Comment on above: Performed By: #### 2 [id number] #### [employer]KE [employer] [address] [place] [address] eGFRon 03-03-2019 GFR/1.73 sq M predicted among non-blacks MDRD (S/P/Bld) [Vol rate/Area] mL/min/{1.73_m2} Normal [facility] Comment on above: Order Comment: Order added by Discern Expert. Performed By: #### 1 [id number] #### [employer]KE [employer] [address] [place] [address]26 XR Spine Lumbosacral Complet e w/ Bendingon 02-08-2019 XR Spine Lumbosacral Complete w/ Bending Exam Date/Time: 02/08/2019 11:16 EDT Reason for Exam: M54.16 Report STUDY: XR Spine Lumbosacral Complete w/ Bending; 02/08/2019 11:16 am INDICATION: M54.16. COMPARISON: 08/12/2018 ACCESSION NUMBER(S): [id number] ORDERING CLINICIAN: Yamilex Muro FINDINGS: 8 views of the lumbar spine including supine and standing AP, lateral and lateral flexion and extension views were obtained. There is no acute fracture identified. There is mild retrolisthesis of L2 on L3 and of L3 on L4. Tvop-gu-sinuvvgh disc space narrowing and marginal osteophyte formation [...] by: Jaret Walker MD Technologist: GEE Normal [facility] CMPon 11-02-2018 Albumin [Mass/Vol] 4.2 g/dL Normal 3.4-5.0 [facility] Comment on above: Performed By: #### 2 [id number] #### [employer] [facility] [place] [address] Albumin/Globulin [Mass ratio] 1.8 {ratio} Normal 1.1-1.9 [facility] Comment on above: Performed By: #### 2 [id number] #### [employer] [address] [place] [address] Alk Phos 98 Int._Unit/L Normal 33-136 [facility] Comment on above: Performed By: #### 2 [id number] #### [employer] [address] [place] [address] ALT [Catalytic activity/Vol] 18 Int._Unit/L Normal 10-52 [facility] Comment on above: Performed By: #### 2 [id number] #### [employer] [address] [place] [address] Anion gap [Moles/Vol] 10 mmol/L Normal 10-20 [facility] Comment on above: Performed By: #### 2 [id number] #### [employer] [address] [place] [address] AST [Catalytic activity/Vol] 17 Int._Unit/L Normal 9-39 [facility] Comment on above: Performed By: #### 2 [id number] #### [employer] [address] [place] [address] Bili Total 0.39 mg/dL Normal 0.00-1.20 [facility] Comment on above: Performed By: #### 2 [id number] #### [employer] [address] [place] [address] Calcium [Mass/Vol] 9.7 mg/dL Normal 8.6-10.3 [facility] Comment on above: Performed By: #### 2 [id number] #### [employer] [address] [place] [address] Chloride [Moles/Vol] 106 mmol/L Normal 98-[address] [facility] Comment on above: Performed By: #### 2 [id number] #### [employer] [address] [place] [address] CO2 [Moles/Vol] 27.0 mmol/L Normal 21.0-32.0 [facility] Comment on above: Performed By: #### 2 [id number] #### [facility] [employer] [address] [place] [address] Creatinine [Mass/Vol] 1.2 mg/dL Normal 0.5-1.3 [facility] Comment on above: Performed By: #### 2 [id number] #### [employer]KE [employer] [address] [place] [address] Globulin (S) [Mass/Vol] 2.0 g/dL Normal 2.0-4.0 [facility] Comment on above: Performed By: #### 2 [id number] #### [employer] [address] [place] [address] Glucose [Mass/Vol] 307 mg/dL High 70-99 [facility] Comment on above: Performed By: #### 2 [id number] #### [employer] [address] [place] [address] Potassium [Moles/Vol] 3.9 mmol/L Normal 3.5-5.3 [facility] Comment on above: Performed By: #### 2 [id number] #### [employer] [facility] [place] [address] Protein [Mass/Vol] 6.5 g/dL Normal 6.4-8.2 [facility] Comment on above: Performed By: #### 2 [id number] #### [employer] [address] [place] [address] Sodium [Moles/Vol] 139 mmol/L Normal 136-145 [facility] Comment on above: Performed By: #### 2 [id number] #### [employer] [address] [place] [address] Urea nitrogen [Mass/Vol] 23 mg/dL Normal 6-23 [facility] Comment on above: Performed By: #### 2 [id number] #### [employer] [address] [place] [address] Urea nitrogen/Creatinine [Mass ratio] 19.2 ratio Normal 5.4-30.0 [facility] Comment on above: Performed By: #### 2 [id number] #### [employer] [address] [place] [address] [id number] 11-02-2018 HbA1c (Bld) [Mass fraction] 8.4 % High 4.0-6.3 [facility] Comment on above: Performed By: #### 3 [id number] #### MIKE Chemistry Manual Subsection [address] [place] [address] eGFRon 11-02-2018 GFR/1.73 sq M predicted among non-blacks MDRD (S/P/Bld) [Vol rate/Area] mL/min/{1.73_m2} Normal [facility] Comment on above: Order Comment: Order added by Discern Expert. Performed By: #### 1 [id number] #### [employer] [address] [place] [address] XR Spine Lumbar w/ Obliqueso n 08-13-2018 XR Spine Lumbar w/ Obliques Exam Date/Time: 08/12/2018 14:38 EDT Reason for Exam: low back pain with left sided sciatica Report STUDY: XR Spine Lumbar w/ Obliques; 08/12/2018 2:38 pm INDICATION: low back pain with left sided sciatica. COMPARISON: None. ACCESSION NUMBER(S): [id number] ORDERING CLINICIAN: Nancy Mirza FINDINGS: Five views of the lumbar spine including AP, lateral, lateral cone-down and bilateral oblique views were obtained. There is no acute fracture identified. There is mild retrolisthesis of L2 on L3 and of L3 on L4. Ulkf-ct-fviigxsg disc space narrowing and marginal osteophyte formation [...] by: Jaret Walker MD Technologist: KAVITA Normal [facility] Carotid Duplexon 02-09-2018 Carotid Duplex Non-Invasive Vascular Patient: TR Titus [facility] Rec#: [id number] (Age): 1945(72y) Study Date: 02/09/2018 Room#: Type: Sex: M Reading: AALIYAH Reading: Flo Abdi DO, RPVI Referring: NANCY MIRZA JOHN Newswriter: Christie Trinidad Procedure Info: [id number]... Study Quality: Carotid Duplex: adequate Diagnosis: I65.23 [...] PM EDT Non-Invasive Vascular Patient: TR Titus [facility] Rec#: [id number] (Age): 1945(72y) Study Date: 02/09/2018 Room#: Type: Sex: M Reading: AALIYAH Reading: Flo Abdi DO, RPVI Referring: NANCY MIRZA JOHN Newswriter: Christie Trinidad Procedure Info: [id number]... Study Quality: Carotid Duplex: adequate Diagnosis: I65.23 [...] Flo Abdi DO, JO-ANN Invalid Interpretation Code [facility] Vital Signs Date Time Vital Sign Value Performing Clinician Facility 05-01-2025 11:06-0400 Body height 170.2 cm Maricruz BERMAN DNP Work Phone: [facility] 05-01-2025 11:06-0400 Body mass index (BMI) [Ratio] 22.12 kg/m2 Maricruz BERMAN DNP Work Phone: [facility] 05-01-2025 11:06-0400 Body weight 64.05 kg Maricruz BERMAN DNP Work Phone: [facility] 05-01-2025 11:06-0400 Diastolic blood pressure 68 mm[Hg] Maricruz BERMAN DNP Work Phone: [facility] 05-01-2025 11:06-0400 Heart rate 47 /min Maricruz BERMAN DNP Work Phone: [facility] 05-01-2025 11:06-0400 Systolic blood pressure 142 mm[Hg] Maricruz BERMAN DNP Work Phone: [facility] 04-22-2025 13:43-0400 Body temperature 97.5 [degF] Ryley Jeter MD Work Phone: [facility] 04-22-2025 13:43-0400 Diastolic blood pressure 89 mm[Hg] Ryley Jeter MD Work Phone: [facility] 04-22-2025 13:43-0400 Heart rate 112 /min Ryley Jeter MD Work Phone: [facility] 04-22-2025 13:43-0400 Inhaled oxygen flow rate 2 L/min Ryley Jeter MD Work Phone: [facility] 04-22-2025 13:43-0400 Respiratory rate 18 /min Ryley Jeter MD Work Phone: 6(988)772-103678 [address] 04-22-2025 13:43-0400 SaO2% (BldA) [Mass fraction] 100 % Ryley Jeter MD Work Phone: 7(511)660-176747 [place] [address] 04-22-2025 13:43-0400 Systolic blood pressure 138 mm[Hg] Ryley Jeter MD Work Phone: 7(779)264-826770 [place] [address] 04-22-2025 05:31-0400 Body mass index (BMI) [Ratio] 23.6 kg/m2 Ryley Jeter MD Work Phone: 7(688)455-133847 [place] [address] 04-22-2025 05:31-0400 Body weight 66.45 kg Ryley Jeter MD Work Phone: 3(489)043-494178 [address] 04-19-2025 11:24-0400 Body height 167.64 cm Ryley Jeter MD Work Phone: 0(500)950-716478 [address] 04-19-2025 09:21-0400 Inhaled oxygen concentration 45 % Ryley Jeter MD Work Phone: [facility] 04-19-2025 03:00-0400 Body temperature 97.7 [degF] Ryley Jeter MD Work Phone: 2(141)284-856078 [address] 04-19-2025 03:00-0400 Diastolic blood pressure 54 mm[Hg] Ryley Jeter MD Work Phone: [facility] 04-19-2025 03:00-0400 Heart rate 97 /min Ryley Jeter MD Work Phone: [facility] 04-19-2025 03:00-0400 Inhaled oxygen flow rate 50 L/min Ryley Jeter MD Work Phone: [facility] 04-19-2025 03:00-0400 Respiratory rate 16 /min Ryley Jeter MD Work Phone: [facility] 04-19-2025 03:00-0400 SaO2% (BldA) [Mass fraction] 98 % Ryley Jeter MD Work Phone: [facility] 04-19-2025 03:00-0400 Systolic blood pressure 134 mm[Hg] Ryley Jeter MD Work Phone: [facility] 04-19-2025 00:50-0400 Inhaled oxygen concentration 50 % Ryley Jeter MD Work Phone: 6(432)749-815147 [place] [address] 04-19-2025 00:00-0400 Body height 170.18 cm Ryley Jeter MD Work Phone: 8(389)905-734678 [address] 04-19-2025 00:00-0400 Body mass index (BMI) [Ratio] 24.4 kg/m2 Ryley Jeter MD Work Phone: [facility] 04-19-2025 00:00-0400 Body weight 70.76 kg Ryley Jeter MD Work Phone: [facility] 04-10-2025 15:10-0400 Diastolic blood pressure 78 mm[Hg] Ryley Jeter MD Work Phone: 3(635)069-918547 [place] [address] 04-10-2025 15:10-0400 Heart rate 80 /min Ryley Jeter MD Work Phone: [facility] 04-10-2025 15:10-0400 Systolic blood pressure 144 mm[Hg] Ryley Jeter MD Work Phone: [facility] 04-10-2025 15:00-0400 Body temperature 98.1 [degF] Ryley Jeter MD Work Phone: [facility] 04-10-2025 15:00-0400 SaO2% (BldA) [Mass fraction] 95 % Ryley Jeter MD Work Phone: [facility] 04-10-2025 13:39-0400 Respiratory rate 16 /min Ryley Jeter MD Work Phone: [facility] 04-10-2025 09:38-0400 Inhaled oxygen flow rate 2 L/min Ryley Jeter MD Work Phone: [facility] 04-10-2025 09:38-0400 SaO2% (BldA) [Mass fraction] 98 % Ryley Jeter MD Work Phone: [facility] 04-10-2025 08:45-0400 Body temperature 97.9 [degF] Ryley Jeter MD Work Phone: [facility] 04-10-2025 03:42-0400 Body mass index (BMI) [Ratio] 22.3 kg/m2 Ryley Jeter MD Work Phone: 6(321)528-903347 [place] [address] 04-10-2025 03:42-0400 Body weight 64.7 kg Ryley Jeter MD Work Phone: [facility] 04-10-2025 00:32-0400 Inhaled oxygen concentration 30 % Ryley Jeter MD Work Phone: [facility] 04-09-2025 14:07-0400 Body height 170.18 cm Ryley Jeter MD Work Phone: [facility] 04-03-2025 05:40-0400 Heart rate 110 /min Ryley Jeter MD Work Phone: [facility] 04-03-2025 05:40-0400 Inhaled oxygen concentration 30 % Ryley Jeter MD Work Phone: [facility] 04-03-2025 05:40-0400 Respiratory rate 21 /min Ryley Jeter MD Work Phone: [facility] 04-03-2025 05:40-0400 SaO2% (BldA) [Mass fraction] 98 % Ryley Jeter MD Work Phone: [facility] 04-03-2025 05:17-0400 Body height 170.18 cm Ryley Jeter MD Work Phone: [facility] 04-03-2025 05:17-0400 Body mass index (BMI) [Ratio] 21.2 kg/m2 Ryley Jeter MD Work Phone: [facility] 04-03-2025 05:17-0400 Body temperature 98 [degF] Ryley Jeter MD Work Phone: [facility] 04-03-2025 05:17-0400 Body weight 61.5 kg Ryley Jeter MD Work Phone: [facility] 04-03-2025 05:17-0400 Diastolic blood pressure 77 mm[Hg] Ryley Jeter MD Work Phone: [facility] 04-03-2025 05:17-0400 Systolic blood pressure 167 mm[Hg] Ryley Jeter MD Work Phone: [facility] 04-03-2025 03:00-0400 Inhaled oxygen flow rate 4 L/min Ryley Jeter MD Work Phone: [facility] 03-12-2025 13:50-0400 Body mass index (BMI) [Ratio] 21.9 kg/m2 Paty Ortega [employer] Work Phone: [facility] 03-12-2025 13:50-0400 Body weight 63.41 kg Paty Ortega [employer] Work Phone: [facility] 03-12-2025 13:50-0400 Diastolic blood pressure 61 mm[Hg] Paty Ortega [employer] Work Phone: [facility] 03-12-2025 13:50-0400 Heart rate 69 /min Paty Ortega [employer] Work Phone: [facility] 03-12-2025 13:50-0400 Systolic blood pressure 166 mm[Hg] Paty Ortega [employer] Work Phone: [facility] 03-09-2025 09:42-0400 Body height 170.2 cm Woo Small MD Work Phone: [facility] 03-09-2025 09:42-0400 Body mass index (BMI) [Ratio] 21.9 kg/m2 Woo Small MD Work Phone: [facility] 03-09-2025 09:42-0400 Body weight 63.41 kg Woo Small MD Work Phone: [facility] 03-09-2025 09:42-0400 Diastolic blood pressure 54 mm[Hg] Woo Small MD Work Phone: [facility] 03-09-2025 09:42-0400 Heart rate 73 /min Woo Small MD Work Phone: [facility] 03-09-2025 09:42-0400 SaO2% (BldA) [Mass fraction] 98 % Woo Small MD Work Phone: [facility] 03-09-2025 09:42-0400 Systolic blood pressure 172 mm[Hg] Woo Small MD Work Phone: [facility] 02-26-2025 13:01-0400 Body height 172.7 cm Ayanna Albert DO Work Phone: [facility] 02-26-2025 13:01-0400 Body mass index (BMI) [Ratio] 21.47 kg/m2 Ayanna Albert DO Work Phone: [facility] 02-26-2025 13:01-0400 Body weight 64.05 kg Ayanna Albert DO Work Phone: [facility] 02-26-2025 13:01-0400 Diastolic blood pressure 68 mm[Hg] Ayanna Albert DO Work Phone: [facility] 02-26-2025 13:01-0400 Heart rate 72 /min Ayanna Albert DO Work Phone: [facility] 02-26-2025 13:01-0400 Systolic blood pressure 158 mm[Hg] Ayanna Albert DO Work Phone: [facility] 11-14-2024 10:44-0500 Diastolic blood pressure 61 mm[Hg] Woo Small MD Work Phone: [facility] 11-14-2024 10:44-0500 Heart rate 57 /min Woo Work Phone: [facility] 11-14-2024 10:44-0500 SaO2% (BldA) [Mass fraction] 96 % Work Phone: [facility] 11-14-2024 10:44-0500 Systolic blood pressure 185 mm[Hg] Woo Work Phone: [facility] 11-14-2024 10:37-0500 Body height 170.2 cm Woo Work Phone: [facility] 11-14-2024 10:37-0500 Body mass index (BMI) [Ratio] 23.57 kg/m2 Work Phone: [facility] 11-14-2024 10:37-0500 Body weight 68.27 kg Woo Work Phone: [facility] 11-13-2024 11:16-0500 Body mass index (BMI) [Ratio] 23.45 kg/m2 Paty Ortega [employer] Work Phone: [facility] 11-13-2024 11:16-0500 Body weight 67.9 kg Paty Ortega [employer] Work Phone: [facility] 11-13-2024 11:16-0500 Diastolic blood pressure 51 mm[Hg] Paty Ortega [employer] Work Phone: [facility] 11-13-2024 11:16-0500 Heart rate 71 /min Paty Ortega [employer] Work Phone: [facility] 11-13-2024 11:16-0500 Systolic blood pressure 107 mm[Hg] Paty Ortega [employer] Work Phone: [facility] 11-09-2024 10:42-0500 Diastolic blood pressure 64 mm[Hg] Kristy Parker MD Work Phone: [facility] 11-09-2024 10:42-0500 Heart rate 58 /min Kristy Parker MD Work Phone: [facility] 11-09-2024 10:42-0500 Systolic blood pressure 160 mm[Hg] Kristy Parker MD Work Phone: [facility] 11-09-2024 10:32-0500 Body height 170.2 cm Kristy Parker MD Work Phone: [facility] 11-09-2024 10:32-0500 Body mass index (BMI) [Ratio] 23.18 kg/m2 Kristy Parker MD Work Phone: [facility] 11-09-2024 10:32-0500 Body weight 67.13 kg Kristy Parker MD Work Phone: [facility] 11-07-2024 09:54-0500 Diastolic blood pressure 61 mm[Hg] Brock Groves MD Work Phone: [facility] 11-07-2024 09:54-0500 Systolic blood pressure 143 mm[Hg] Brock Groves MD Work Phone: [facility] 11-07-2024 09:51-0500 Body height 170.2 cm Brock Groves MD Work Phone: [facility] 11-07-2024 09:51-0500 Body mass index (BMI) [Ratio] 23.02 kg/m2 Brock Groves MD Work Phone: [facility] 11-07-2024 09:51-0500 Body temperature 97.39 [degF] Brock Groves MD Work Phone: [facility] 11-07-2024 09:51-0500 Body weight 66.68 kg Brock Groves MD Work Phone: [facility] 11-07-2024 09:51-0500 Heart rate 63 /min Brock Groves MD Work Phone: [facility] 11-07-2024 09:51-0500 SaO2% (BldA) [Mass fraction] 100 % Brock Groves MD Work Phone: [facility] 10-28-2024 11:06-0500 Diastolic blood pressure 51 mm[Hg] Nidia Garay MD Work Phone: [facility] 10-28-2024 11:06-0500 Heart rate 68 /min Nidia Garay MD Work Phone: [facility] 10-28-2024 11:06-0500 Respiratory rate 14 /min Nidia Garay MD Work Phone: [facility] 10-28-2024 11:06-0500 SaO2% (BldA) [Mass fraction] 94 % Nidia Garay MD Work Phone: [facility] 10-28-2024 11:06-0500 Systolic blood pressure 153 mm[Hg] Nidia Garay MD Work Phone: [facility] 10-28-2024 07:24-0500 Body temperature 97.59 [degF] Nidia Garay MD Work Phone: [facility] 10-28-2024 05:11-0500 Body mass index (BMI) [Ratio] 22.44 kg/m2 Nidia Garay MD Work Phone: [facility] 10-28-2024 05:11-0500 Body weight 65 kg Nidia Garay MD Work Phone: [facility] 10-27-2024 16:36-0500 Body height 170.2 cm Nidia Garay MD Work Phone: [facility] 10-27-2024 14:18-0500 SaO2% (BldA) [Mass fraction] 97.3 % Nidia Garay MD Work Phone: [facility] 10-18-2024 13:46-0500 Diastolic blood pressure 61 mm[Hg] Woo Small MD Work Phone: [facility] 10-18-2024 13:46-0500 Heart rate 67 /min Woo Small MD Work Phone: [facility] 10-18-2024 13:46-0500 SaO2% (BldA) [Mass fraction] 100 % Woo Small MD Work Phone: [facility] 10-18-2024 13:46-0500 Systolic blood pressure 103 mm[Hg] Woo Small MD Work Phone: [facility] 10-18-2024 13:27-0500 Body height 172.7 cm Woo Small MD Work Phone: [facility] 10-18-2024 13:27-0500 Body mass index (BMI) [Ratio] 22.52 kg/m2 Woo Small MD Work Phone: [facility] 10-18-2024 13:27-0500 Body weight 67.18 kg Woo Small MD Work Phone: [facility] 08-29-2024 13:04-0400 Diastolic blood pressure 72 mm[Hg] Ayanna Young DO Work Phone: [facility] 08-29-2024 13:04-0400 Systolic blood pressure 168 mm[Hg] Ayanna Young DO Work Phone: [facility] 08-29-2024 12:57-0400 Body height 172.7 cm Ayanna Young DO Work Phone: [facility] 08-29-2024 12:57-0400 Body mass index (BMI) [Ratio] 22.72 kg/m2 Ayanna Young DO Work Phone: [facility] 08-29-2024 12:57-0400 Body weight 67.77 kg Ayanna Young DO Work Phone: [facility] 08-29-2024 12:57-0400 Heart rate 64 /min Ayanna Young DO Work Phone: [facility] 07-21-2024 14:12-0400 Diastolic blood pressure 68 mm[Hg] Paty Ortega [employer] Work Phone: [facility] 07-21-2024 14:12-0400 Systolic blood pressure 166 mm[Hg] Paty Ortega [employer] Work Phone: [facility] 07-21-2024 13:38-0400 Body mass index (BMI) [Ratio] 22.44 kg/m2 Patyeduar Ortega CNP Work Phone: [facility] 07-21-2024 13:38-0400 Body weight 66.95 kg Paty Jordan HUDSON Work Phone: [facility] 07-21-2024 13:38-0400 Heart rate 69 /min Paty Jordan HUDSON Work Phone: [facility] 04-24-2024 10:09-0400 Diastolic blood pressure 70 mm[Hg] Woo Nini URIBE Work Phone: [facility] Comment on above: Manual 04-24-2024 10:09-0400 Systolic blood pressure 150 mm[Hg] Woomert Small MD Work Phone: [facility] Comment on above: Manual 04-24-2024 09:44-0400 Body height 172.7 cm Woomert Small MD Work Phone: [facility] 04-24-2024 09:44-0400 Body mass index (BMI) [Ratio] 22.43 kg/m2 Woomert Small MD Work Phone: [facility] 04-24-2024 09:44-0400 Body weight 66.91 kg Woomert Small MD Work Phone: [facility] 04-24-2024 09:44-0400 Heart rate 53 /min Woomert Small MD Work Phone: [facility] 04-24-2024 09:44-0400 SaO2% (BldA) [Mass fraction] 96 % Woo Nini URIBE Work Phone: [facility] 02-24-2024 13:44-0400 Body height 172.7 cm Maricruz BERMAN DNP Work Phone: [facility] 02-24-2024 13:44-0400 Body mass index (BMI) [Ratio] 23.11 kg/m2 Maricruz BERMAN DNP Work Phone: [facility] 02-24-2024 13:44-0400 Body weight 68.95 kg Maricruz Albert APRN-[employer], DNP Work Phone: [facility] 02-24-2024 13:44-0400 Diastolic blood pressure 68 mm[Hg] Maricruz Albert APRN-[employer], DNP Work Phone: [facility] 02-24-2024 13:44-0400 Heart rate 76 /min Maricruz Albert APRN-[employer], DNP Work Phone: [facility] 02-24-2024 13:44-0400 Systolic blood pressure 142 mm[Hg] Maricruz Albert APRN-[employer], DNP Work Phone: [facility] 02-18-2024 12:48-0400 Body mass index (BMI) [Ratio] 23.11 kg/m2 Paty Ortega [employer] Work Phone: [facility] [facility] 02-18-2024 12:48-0400 Body weight 68.95 kg Paty Ortega [employer] Work Phone: [facility] 02-18-2024 12:48-0400 Diastolic blood pressure 79 mm[Hg] Paty Ortega [employer] Work Phone: [facility] 02-18-2024 12:48-0400 Heart rate 67 /min Paty Ortega [employer] Work Phone: [facility] 02-18-2024 12:48-0400 Systolic blood pressure 131 mm[Hg] Paty Ortega [employer] Work Phone: [facility] 01-14-2024 11:02-0400 Body height 172.7 cm Aylin Lacy [employer] Work Phone: [facility] 01-14-2024 11:02-0400 Body mass index (BMI) [Ratio] 24.01 kg/m2 Aylin Lacy [employer] Work Phone: [facility] 01-14-2024 11:02-0400 Body weight 71.62 kg Aylin Lacy [employer] Work Phone: [facility] 01-14-2024 11:02-0400 Diastolic blood pressure 78 mm[Hg] Aylin Lacy [employer] Work Phone: [facility] 01-14-2024 11:02-0400 Heart rate 70 /min Aylin Lacy [employer] Work Phone: [facility] 01-14-2024 11:02-0400 SaO2% (BldA) [Mass fraction] 94 % Aylin Lacy [employer] Work Phone: [facility] 01-14-2024 11:02-0400 Systolic blood pressure 139 mm[Hg] Aylin Lacy [employer] Work Phone: [facility] 12-01-2023 08:00-0500 Body temperature 97.9 [degF] Kathleen Story MD Work Phone: [facility] 12-01-2023 08:00-0500 Diastolic blood pressure 73 mm[Hg] Kathleen Story MD Work Phone: [facility] 12-01-2023 08:00-0500 Heart rate 91 /min Kathleen Story MD Work Phone: [facility] 12-01-2023 08:00-0500 Respiratory rate 18 /min Kathleen Story MD Work Phone: [facility] 12-01-2023 08:00-0500 SaO2% (BldA) [Mass fraction] 94 % Kathleen Story MD Work Phone: [facility] 12-01-2023 08:00-0500 Systolic blood pressure 134 mm[Hg] Kathleen Story MD Work Phone: [facility] 12-01-2023 06:00-0500 Body mass index (BMI) [Ratio] 23.96 kg/m2 Kathleen Story MD Work Phone: [facility] 12-01-2023 06:00-0500 Body weight 69.4 kg Kathleen Story MD Work Phone: [facility] 11-27-2023 04:06-0500 SaO2% (BldA) [Mass fraction] 96.0 % Kathleen Story MD Work Phone: [facility] 11-27-2023 03:00-0500 Body height 170.2 cm Kathleen Story MD Work Phone: [facility] 11-27-2023 01:39-0500 Diastolic blood pressure 79 mm[Hg] Ger Bansal DO Work Phone: 6(600)929-500876 [place] [address] 11-27-2023 01:39-0500 Heart rate 77 /min Ger Bansal DO Work Phone: 0(889)011-351676 [place] [address] 11-27-2023 01:39-0500 Respiratory rate 20 /min Ger Bansal DO Work Phone: 0(231)196-947976 [place] [address] 11-27-2023 01:39-0500 SaO2% (BldA) [Mass fraction] 95 % Ger Bansal DO Work Phone: 6(672)726-968576 [place] [address] 11-27-2023 01:39-0500 Systolic blood pressure 148 mm[Hg] Ger Bansal DO Work Phone: 4(206)597-061276 [place] [address] 11-26-2023 21:22-0500 Body height 172.7 cm Ger Bansal DO Work Phone: 0(093)639-500776 [place] [address] 11-26-2023 21:22-0500 Body mass index (BMI) [Ratio] 22.5 kg/m2 Ger Bansal DO Work Phone: 1(241)417-301376 [place] [address] 11-26-2023 21:22-0500 Body temperature 97.11 [degF] Ger Bansal DO Work Phone: 3(428)018-550476 [place] [address] 11-26-2023 21:22-0500 Body weight 67.13 kg Ger Bansal DO Work Phone: 6(200)385-588176 [place] [address] 10-21-2023 08:54-0500 Body height 172.7 cm Woo Small MD Work Phone: [facility] 10-21-2023 08:54-0500 Body mass index (BMI) [Ratio] 22.61 kg/m2 Woo Small MD Work Phone: [facility] 10-21-2023 08:54-0500 Body weight 67.45 kg Woo Small MD Work Phone: [facility] 10-21-2023 08:54-0500 Diastolic blood pressure 67 mm[Hg] Woo Small MD Work Phone: [facility] 10-21-2023 08:54-0500 Heart rate 65 /min Woo Small MD Work Phone: [facility] 10-21-2023 08:54-0500 SaO2% (BldA) [Mass fraction] 99 % Woo Small MD Work Phone: [facility] 10-21-2023 08:54-0500 Systolic blood pressure 128 mm[Hg] Woo Small MD Work Phone: [facility] 10-13-2023 11:55-0500 SaO2% (BldA) [Mass fraction] 92 % Praful Pineda MD Work Phone: [facility] 10-13-2023 10:39-0500 Heart rate 97 /min Praful Pineda MD Work Phone: [facility] 10-13-2023 09:35-0500 Body height 171.5 cm Praful Pineda MD Work Phone: [facility] 10-13-2023 09:35-0500 Body mass index (BMI) [Ratio] 24.38 kg/m2 Praful Pineda MD Work Phone: [facility] 10-13-2023 09:35-0500 Body weight 71.7 kg Praful Pineda MD Work Phone: [facility] 10-12-2023 20:45-0500 Body temperature 98.1 [degF] Praful Pineda MD Work Phone: [facility] 10-12-2023 20:45-0500 Diastolic blood pressure 85 mm[Hg] Praful Pineda MD Work Phone: [facility] 10-12-2023 20:45-0500 Respiratory rate 16 /min Praful Pineda MD Work Phone: [facility] 10-12-2023 20:45-0500 Systolic blood pressure 123 mm[Hg] Praful Pineda MD Work Phone: [facility] 10-11-2023 01:56-0500 Body temperature 37.0 Praful Pineda MD Work Phone: [facility] 10-11-2023 01:56-0500 SaO2% (BldA) [Mass fraction] 93 % Praful Pineda MD Work Phone: [facility] 10-08-2023 11:12-0500 Diastolic blood pressure 66 mm[Hg] Mary Vargas MD Work Phone: [facility] 10-08-2023 11:12-0500 Heart rate 67 /min Mary Vargas MD Work Phone: [facility] 10-08-2023 11:12-0500 Systolic blood pressure 199 mm[Hg] Mary Vargas MD Work Phone: [facility] 10-08-2023 11:05-0500 Body mass index (BMI) [Ratio] 24.18 kg/m2 Mary Vargas MD Work Phone: [facility] 10-08-2023 11:05-0500 Body weight 72.12 kg Mary Vargas MD Work Phone: [facility] 08-25-2023 14:11-0400 Body weight 72.12 kg Ayanna Albert DO Work Phone: [facility] 08-25-2023 14:11-0400 Diastolic blood pressure 62 mm[Hg] Ayanna Albert DO Work Phone: [facility] 08-25-2023 14:11-0400 Heart rate 62 /min Ayanna Albert DO Work Phone: [facility] 08-25-2023 14:11-0400 Systolic blood pressure 144 mm[Hg] Ayanna Albert Work Phone: [facility] 07-27-2023 14:48-0400 Diastolic blood pressure 78 mm[Hg] Nancy Mirza Work Phone: [facility] Work Phone: 07-27-2023 14:48-0400 Systolic blood pressure 152 mm[Hg] Nancy Mirza Work Phone: [facility] Work Phone: 07-27-2023 14:45-0400 Body height 172.72 cm Nancy Mirza Work Phone: [facility] Work Phone: 07-27-2023 14:45-0400 Body mass index (BMI) [Ratio] 24.05 kg/m2 Nancy Mirza Work Phone: [facility] Work Phone: 07-27-2023 14:45-0400 Body surface area Derived from formula 1.85 m2 Nancy Mirza Work Phone: [facility] Work Phone: 07-27-2023 14:45-0400 Body weight 71.76 kg Nancy Mirza Work Phone: [facility] Work Phone: 07-27-2023 14:45-0400 Diastolic blood pressure 88 mm[Hg] Nancy Mirza Work Phone: [facility] Work Phone: 07-27-2023 14:45-0400 Heart rate 70 /min Nancy Mirza Work Phone: [facility] Work Phone: 07-27-2023 14:45-0400 SaO2% (BldA) [Mass fraction] 97 % Nancy Tabareszonia Work Phone: [facility] Work Phone: 07-27-2023 14:45-0400 Systolic blood pressure 160 mm[Hg] Nancy Tabareszonia Work Phone: [facility] Work Phone: 02-19-2023 13:02-0400 Body mass index (BMI) [Ratio] 24.33 kg/m2 Paty Ortega [employer] Work Phone: [facility] 02-19-2023 13:02-0400 Body weight 72.58 kg Paty Ortega [employer] Work Phone: [facility] 02-19-2023 13:02-0400 Diastolic blood pressure 83 mm[Hg] Paty Ortega [employer] Work Phone: [facility] 02-19-2023 13:02-0400 Heart rate 73 /min Paty Ortega [employer] Work Phone: [facility] 02-19-2023 13:02-0400 Systolic blood pressure 116 mm[Hg] Paty Ortega [employer] Work Phone: [facility] 10-19-2022 10:01-0500 Diastolic blood pressure 69 mm[Hg] Paty Ortega [employer] Work Phone: [facility] 10-19-2022 10:01-0500 Heart rate 89 /min Paty Ortega [employer] Work Phone: [facility] 10-19-2022 10:01-0500 Systolic blood pressure 149 mm[Hg] Paty Ortega [employer] Work Phone: [facility] 10-19-2022 09:56-0500 Body mass index (BMI) [Ratio] 24.04 kg/m2 Paty Ortega [employer] Work Phone: [facility] 10-19-2022 09:56-0500 Body weight 71.71 kg Paty Ortega [employer] Work Phone: [facility] 06-19-2022 10:04-0400 Diastolic blood pressure 90 mm[Hg] Paty Ortega [employer] Work Phone: [facility] 06-19-2022 10:04-0400 Systolic blood pressure 184 mm[Hg] Paty Ortega [employer] Work Phone: [facility] 06-19-2022 09:40-0400 Heart rate 72 /min Paty Ortega [employer] Work Phone: [facility] 06-19-2022 09:36-0400 Body height 172.7 cm Paty Ortega [employer] Work Phone: [facility] 06-19-2022 09:36-0400 Body mass index (BMI) [Ratio] 24.48 kg/m2 Patyeduar Ortega [employer] Work Phone: [facility] 06-19-2022 09:36-0400 Body weight 73.03 kg Paty Ortega [employer] Work Phone: [facility] 02-13-2022 11:13-0400 Diastolic blood pressure 74 mm[Hg] Mary Vargas MD Work Phone: [facility] 02-13-2022 11:13-0400 Systolic blood pressure 138 mm[Hg] Mary Vargas MD Work Phone: [facility] 02-13-2022 11:09-0400 Body height 172.7 cm Mary Vargas MD Work Phone: [facility] 02-13-2022 11:09-0400 Body mass index (BMI) [Ratio] 25.09 kg/m2 Mary Vargas MD Work Phone: [facility] 02-13-2022 11:09-0400 Body weight 74.84 kg Mary Vargas MD Work Phone: [facility] 02-13-2022 11:09-0400 Heart rate 71 /min Mary Vargas MD Work Phone: [facility] 10-13-2021 14:07-0500 Diastolic blood pressure 72 mm[Hg] Paty Ortega [employer] Work Phone: [facility] 10-13-2021 14:07-0500 Heart rate 74 /min Paty Ortega [employer] Work Phone: [facility] 10-13-2021 14:07-0500 Systolic blood pressure 163 mm[Hg] Paty Ortega [employer] Work Phone: [facility] 10-13-2021 13:59-0500 Body mass index (BMI) [Ratio] 24.89 kg/m2 Paty Ortega [employer] Work Phone: [facility] 10-13-2021 13:59-0500 Body weight 74.25 kg Paty Ortega [employer] Work Phone: [facility] 06-20-2021 14:38-0400 Diastolic blood pressure 68 mm[Hg] Paty Ortega [employer] Work Phone: [facility] 06-20-2021 14:38-0400 Heart rate 70 /min Paty Ortega [employer] Work Phone: [facility] 06-20-2021 14:38-0400 Systolic blood pressure 163 mm[Hg] Paty Ortega [employer] Work Phone: [facility] 06-20-2021 14:33-0400 Body height 172.7 cm Paty Ortega [employer] Work Phone: [facility] 06-20-2021 14:33-0400 Body mass index (BMI) [Ratio] 25.32 kg/m2 Paty Ortega [employer] Work Phone: [facility] 06-20-2021 14:33-0400 Body weight 75.52 kg Paty Ortega [employer] Work Phone: [facility] 02-18-2021 15:24-0400 Body height 172.7 cm Mary Vargas MD Work Phone: [facility] 02-18-2021 15:24-0400 Body mass index (BMI) [Ratio] 25.54 kg/m2 Mary Vargas MD Work Phone: [facility] 02-18-2021 15:24-0400 Body weight 76.2 kg Mary Vargas MD Work Phone: [facility] 02-18-2021 15:24-0400 Diastolic blood pressure 70 mm[Hg] Mary Vargas MD Work Phone: [facility] 02-18-2021 15:24-0400 Heart rate 76 /min Mary Vargas MD Work Phone: [facility] 02-18-2021 15:24-0400 Systolic blood pressure 194 mm[Hg] Mary Vargas MD Work Phone: [facility] 10-18-2020 13:36-0500 BMI (Body Mass Index) 25.54 kg/m2 [facility] 10-18-2020 13:36-0500 Body weight 76.2 kg [facility] 10-18-2020 13:36-0500 BP Diastolic 69 mm[Hg] [facility] 10-18-2020 13:36-0500 BP Systolic 163 mm[Hg] [facility] 10-18-2020 13:36-0500 Height 172.7 cm [facility] 10-18-2020 13:36-0500 Pulse (Heart Rate) 72 /min [facility] 06-18-2020 10:01-0400 BMI (Body Mass Index) 25.39 kg/m2 [facility] 06-18-2020 10:01-0400 Body weight 75.75 kg [facility] 06-18-2020 10:01-0400 BP Diastolic 71 mm[Hg] [facility] 06-18-2020 10:01-0400 BP Systolic 172 mm[Hg] [facility] 06-18-2020 10:01-0400 Height 172.7 cm [facility] 06-18-2020 10:01-0400 Pulse (Heart Rate) 72 /min [facility] 11-16-2019 10:40-0500 BMI (Body Mass Index) 25.09 kg/m2 [facility] 11-16-2019 10:40-0500 Body weight 74.84 kg Paty Ortega [facility] 11-16-2019 10:40-0500 BP Diastolic 68 mm[Hg] Paty Ortega [facility] 11-16-2019 10:40-0500 BP Systolic 178 mm[Hg] Paty Ortega [facility] 11-16-2019 10:40-0500 Height 172.7 cm Paty Ortega [facility] 11-16-2019 10:40-0500 Pulse (Heart Rate) 75 /min Paty Ortega [facility] 07-17-2019 10:48-0400 BMI (Body Mass Index) 25.09 kg/m2 Keeley Patton [facility] 07-17-2019 10:48-0400 Body weight 74.84 kg Keeley Patton [facility] 07-17-2019 10:48-0400 BP Diastolic 69 mm[Hg] Keeley Patton [facility] 07-17-2019 10:48-0400 BP Systolic 152 mm[Hg] Keeley Patton [facility] 07-17-2019 10:48-0400 Height 172.7 cm Keeleymarlene Patton [facility] 07-17-2019 10:48-0400 Pulse (Heart Rate) 71 /min Keeley Patton [facility] 03-13-2019 12:07-0400 BMI (Body Mass Index) 25.24 kg/m2 Mary Vargas [facility] 03-13-2019 12:07-0400 Body weight 75.3 kg Mary Vargas [facility] 03-13-2019 12:07-0400 BP Diastolic 67 mm[Hg] Mary Vargas [facility] 03-13-2019 12:07-0400 BP Systolic 160 mm[Hg] Mary Vargas [facility] 03-13-2019 12:07-0400 Height 172.7 cm Mary Vargas [facility] 03-13-2019 12:07-0400 Pulse (Heart Rate) 72 /min Mary Vargas [facility] 11-11-2018 11:08-0500 BMI (Body Mass Index) 26 kg/m2 Keeley Patton [facility] 11-11-2018 11:08-0500 BP Diastolic 74 mm[Hg] Keeley Patton [facility] 11-11-2018 11:08-0500 BP Systolic 172 mm[Hg] Keeley Patton [facility] 11-11-2018 11:08-0500 Height 172.7 cm Keeley Patton [facility] 11-11-2018 11:08-0500 Pulse (Heart Rate) 71 /min Keeley Patton [facility] 11-11-2018 11:08-0500 Weight 77.56 kg Keeley Patton [facility] 07-05-2018 10:05-0400 BMI (Body Mass Index) 25.48 kg/m2 [facility] 07-05-2018 10:05-0400 BP Diastolic 58 mm[Hg] [facility] 07-05-2018 10:05-0400 BP Systolic 130 mm[Hg] [facility] 07-05-2018 10:05-0400 Height 172.7 cm [facility] 07-05-2018 10:05-0400 Pulse (Heart Rate) 84 /min [facility] 07-05-2018 10:05-0400 Weight 76.02 kg [facility] 02-28-2018 10:14-0400 BMI (Body Mass Index) 26.15 kg/m2 [facility] 02-28-2018 10:14-0400 BP Diastolic 64 mm[Hg] [facility] 02-28-2018 10:14-0400 BP Systolic 154 mm[Hg] [facility] 02-28-2018 10:14-[address] [facility] 02-28-2018 10:14-0400 Pulse (Heart Rate) 76 /min [facility] 02-28-2018 10:14-[address] [facility] 10-29-2017 10:08-0500 BMI (Body Mass Index) 25.24 kg/m2 Mary Vargas [facility] Work Phone: 10-29-2017 10:08-0500 BP Diastolic 64 mm[Hg] Marymarquise Vargas [facility] Work Phone: 10-29-2017 10:08-0500 BP Systolic 142 mm[Hg] Mary Vargas [facility] Work Phone: 10-29-2017 10:08-0500 Height 172.7 cm Mary Vargas [facility] Work Phone: 10-29-2017 10:08-0500 Pulse (Heart Rate) 72 /min Mary Vargas [facility] Work Phone: 10-29-2017 10:08-0500 Weight 75.3 kg Mary Vargas [facility] Work Phone: 06-17-2017 11:04-0400 BMI (Body Mass Index) 24.78 kg/m2 Ya Parker [facility] Work Phone: 06-17-2017 11:04-0400 BP Diastolic 62 mm[Hg] Ya Parker [facility] Work Phone: 06-17-2017 11:04-0400 BP Systolic 148 mm[Hg] Ya Parker [facility] Work Phone: 06-17-2017 11:04-0400 Height 172.7 cm Ya Parker [facility] Work Phone: 06-17-2017 11:04-0400 Pulse (Heart Rate) 64 /min Ya Parker [facility] Work Phone: 06-17-2017 11:04-0400 Weight 73.94 kg Ya Parker [facility] Work Phone: Encounters Encounter Date Encounter Type Care Provider Facility Start: 05-09-2025 ambulatory Ryley Steffany Facility:[facility] [place] Start: 05-01-2025 End: 05-01-2025 ambulatory [facility] Ambulatory Start: 05-01-2025 End: 05-01-2025 Office outpatient visit 25 minutes Maricrzu Albert HI [employer], DNP Work Phone: [facility] Comment on above: 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 Breezy chavez MD -[facility] Start: 04-22-2025 Dr. Malika Fonseca [facility] Work Phone: Start: 04-21-2025 Dr. Breezy chavez MD [facility] Start: 04-21-2025 Dr. Malika Fonseca [facility] Work Phone: Start: 04-20-2025 Dr. Breezy chavez MD [facility] Start: 04-20-2025 Dr. Ger lora [facility] Work Phone: Start: 04-19-2025 ambulatory Nancy Rizzo [facility] ty:[facility] Start: 04-19-2025 End: 04-22-2025 Evaluation and management of inpatient Ryley Jeter MD Work Phone: [facility] Work Phone: Start: 04-19-2025 End: 04-22-2025 Dr. Nancy Rizzo -Intensive Care Unit Work Phone: Start: 04-16-2025 End: 04-17-2025 Refill Ej Guidry [facility] Comment on above: Medication Refill Type 1 diabetes suzie itus with diabetic neuropathy (HCC) Start: 04-12-2025 ambulatory RYLEY JETER [facility] Ambulatory Start: 04-10-2025 Dr. Grace sepulveda MD [facility] Work Phone: Start: 04-09-2025 Non-patient / Non-visit Dr. Kesha Arnold MD [facility] Work Phone: Start: 04-09-2025 Dr. Grace sepulveda MD [facility] Work Phone: Start: 04-08-2025 Non-patient / Non-visit Dr. Cassandra Moore MD [facility] Work Phone: Start: 04-08-2025 Dr. Jose Moore MD [facility] Work Phone: Start: 04-07-2025 Non-patient / Non-visit Dr. Cassandra Moore MD [facility] Work Phone: Start: 04-07-2025 Dr. Jose Moore [facility] Work Phone: Start: 04-06-2025 Non-patient / Non-visit Dr. Cassandra Moore MD [facility] Work Phone: Start: 04-06-2025 Dr. Jose Moore MD [facility] Work Phone: Start: 04-06-2025 Non-patient / Non-visit Dr. Rosetta URIBE [facility] Start: 04-06-2025 Dr. Smooth almanza MD [facility] Start: 04-06-2025 Non-patient / Non-visit [facility]. Landry August [facility] Start: 04-06-2025 [facility] Start: 04-05-2025 Non-patient / Non-visit Dr. Rosetta URIBE [facility] Start: 04-05-2025 Dr. Smooth almanza MD [facility] Start: 04-05-2025 Non-patient / Non-visit Dr. Kesha Martin MD [facility] Start: 04-05-2025 Dr. Barbie Martin MD [facility] Start: 04-05-2025 Non-patient / Non-visit Dr. Kesha Arnold MD [facility] Work Phone: Start: 04-05-2025 Dr. Grace sepulveda MD [facility] Work Phone: Start: 04-05-2025 Non-patient / Non-visit Dr. Landry August [facility] Start: 04-05-2025 [facility] Start: 04-04-2025 Non-patient / Non-visit Dr. Kesha Arnold MD [facility] [facility] Work Phone: Start: 04-04-2025 Dr. Grace sepulveda MD [facility] [facility] Work Phone: Start: 04-03-2025 ambulatory Ryley Jeter Facility:[facility] Start: 04-03-2025 Non-patient / Non-visit Dr. Koffi langley MD -[facility] Start: 04-03-2025 Dr. Koffi Gibbs MD -[facility] Start: 04-03-2025 ambulatory Dyana Hwang Facility :[facility] Start: 04-03-2025 End: 04-10-2025 Evaluation and management of inpatient Dr. Dyana Hwang MD -Intensive Care Unit Work Phone: Start: 04-03-2025 End: 04-10-2025 Dr. Grace Arnold MD -Progressive Care Unit Work Phone: Start: 03-29-2025 End: 03-29-2025 ambulatory WOO SMALL [facility] Start: 03-27-2025 End: 03-27-2025 Follow-up encounter Woo Small MD Work Phone: [facility] Comment on above: Basic metabolic pane l Start: 03-12-2025 End: 03-12-2025 Office outpatient visit 25 minutes Paty Ortega [facility] Work Phone: [facility] [place] Comment on above: Type 1 diabetes suzie itus with diabetic neuropathy (HCC) (Primary Dx); Pure hypercholesterolemia; Essential hypertension Start: 03-12-2025 End: 03-12-2025 ambulatory PATY ORTEGA [facility] Ambulatory Start: 03-09-2025 End: 03-09-2025 Office outpatient visit 25 minutes Woo Small MD Work Phone: [facility] Comment on above: Coronary artery dise 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 (Primary Dx); NSTEMI (non-ST elevated myocardial infarction) (HCC); Hospital discharge follow-up Start: 03-09-2025 End: 03-09-2025 ambulatory RYLEY JETER [facility] Ambulatory Start: 02-28-2025 End: 03-05-2025 Evaluation and management of inpatient [facility] Start: 02-26-2025 End: 02-26-2025 Office outpatient visit 15 minutes Ayanna Albert DO Work Phone: [facility] Comment on above: 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); Essential hypertension; Pure hypercholesterolemia; Type 1 diabetes mellitus with diabetic neuropathy Start: 02-26-2025 End: 02-26-2025 ambulatory AYANNA Sudha [facility] Start: 02-16-2025 End: 02-16-2025 Refill Paty Ortega [employer] Work Phone: [facility] Comment on above: Type 1 diabetes suzie itus with diabetic neuropathy (HCC) (Primary Dx) Start: 02-14-2025 End: 02-14-2025 Documentation procedure Ej Guidry MA [facility] Comment on above: Letter refaxed Start: 02-12-2025 End: 02-13-2025 Orders Only Paty Ortega [employer] Work Phone: [facility] Start: 02-09-2025 Encounter for other preprocedural examination Kerwin Tamayo [facility] Start: 02-06-2025 End: 02-06-2025 ambulatory Ryley Jeter MD Work Phone: [facility] Work Phone: Start: 02-06-2025 End: 02-06-[address] Kerwin Tamayo MD -Laboratory, [facility] Start: 02-06-2025 End: 02-06-2025 Dr. Kerwin Tamayo MD -Laboratory [facility] Start: 02-06-2025 End: 02-06-2025 ambulatory Ryley Jeter Facility:[facility] Start: 01-01-2025 End: 01-01-2025 Refill Paty Ortega [employer] Work Phone: [facility] Comment on above: Type 1 diabetes suzie itus with diabetic neuropathy (HCC) (Primary Dx) Start: 12-08-2024 End: 12-08-2024 Refill Paty Ortega CNP Work Phone: [facility] Comment on above: Type 1 diabetes suzie itus with diabetic neuropathy (HCC) Start: 11-20-2024 End: 11-20-2024 Refill Paty Ortega [employer] Work Phone: [facility] Start: 11-14-2024 End: 11-14-2024 Office outpatient visit 25 minutes Woo Small MD Work Phone: [facility] Comment on above: Coronary artery dise 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 (Primary Dx); Claudication in peripheral vascular disease; Bilateral carotid artery stenosis Start: 11-14-2024 End: 11-14-2024 ambulatory [facility] Ambulatory Start: 11-13-2024 End: 11-13-2024 Office outpatient visit 25 minutes Paty Ortega CNP Work Phone: [facility] [place] Comment on above: Type 1 diabetes suzie itus with diabetic neuropathy (HCC) (Primary Dx); Pure hypercholesterolemia; Essential hypertension Start: 11-13-2024 End: 11-13-2024 ambulatory [facility] TUCKER STEFFANY [facility] Ambulatory Start: 11-09-2024 End: 11-09-2024 Office outpatient new 60 minutes Sandi Phan PA-C Work Phone: [facility] Comment on above: Bilateral carotid ar radha stenosis Start: 11-09-2024 End: 11-09-2024 ambulatory SANDI PHAN [facility] Ambulatory Start: 11-07-2024 End: 11-07-2024 Office outpatient new 45 minutes Brock Groves MD Work Phone: [facility] Comment on above: Coronary artery dise 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 (Primary Dx) Start: 11-07-2024 End: 11-11-2024 Orders Only Sandi Phan PA-C Work Phone: [facility] Comment on above: Bilateral carotid ar radha stenosis (Primary Dx) Start: 11-06-2024 End: 11-07-2024 Refill Paty Ortega [employer] Work Phone: [facility] Comment on above: Type 1 diabetes suzie itus with diabetic neuropathy (HCC) (Primary Dx) Start: 10-27-2024 End: 10-28-2024 ambulatory CINTIA [facility] Start: 10-27-2024 End: 10-28-2024 Emergency department patient visit Elías Rodriguez MD Work Phone: [facility] Start: 10-23-2024 End: 10-23-2024 Chart abstracting Ej Guidry MA [facility] Comment on above: Medication Refill Start: 10-18-2024 End: 10-18-2024 Office outpatient visit 25 minutes Woo Small MD Work Phone: [facility] Comment on above: Claudication in sheyla pheral vascular disease (HCC) (Primary Dx); Encounter for examination of blood pressure with abnormal findings; 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; Congestive heart failure, unspecified HF chronicity, unspecified heart failure type (HCC); Hypertensive emergency Start: 10-18-2024 End: 10-18-2024 Patient encounter status Woo Small MD Work Phone: [facility] Start: 10-18-2024 End: 10-18-2024 ambulatory WOO SMALL [facility] Ambulatory Start: 10-18-2024 End: 10-18-2024 Encounter for examination of blood pressure with abnormal findings WOO SMALL [facility] Ambulatory Start: 10-06-2024 End: 10-06-2024 Refill Luisa Easley RN [facility] Start: 10-04-2024 ambulatory EJ GUIDRY [facility] Ambulatory Start: 09-28-2024 ambulatory RYLEY JETER [facility] Start: 09-26-2024 End: 09-26-2024 Refill Paty Ortega [employer] Work Phone: [facility] Comment on above: Type 1 diabetes suzie itus with diabetic neuropathy (HCC) (Primary Dx) Start: 09-21-2024 End: 09-21-2024 ambulatory [facility] Facility:[facility] Start: 09-13-2024 ambulatory Chalcam Steffany [facility] Start: 09-12-2024 ambulatory Ryley Steffany [facility] Start: 09-12-2024 End: 09-14-2024 Evaluation and management of inpatient Young Koroma Facility:[facility] Start: 09-12-2024 ambulatory Young Koroma [facility] Start: 08-29-2024 End: 08-29-2024 Office outpatient visit 15 minutes Ayanna Albert DO Work Phone: [facility] Comment on above: 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); Essential hypertension; Type 1 diabetes mellitus with diabetic neuropathy Start: 08-29-2024 End: 08-29-2024 ambulatory [facility] Ambulatory Start: 07-21-2024 End: 07-21-2024 Office outpatient visit 25 minutes Paty Ortega [employer] Work Phone: [facility] [place] Comment on above: Type 1 diabetes suzie itus with diabetic neuropathy (HCC) (Primary Dx); Pure hypercholesterolemia; Essential hypertension Start: 07-21-2024 End: 07-21-2024 ambulatory [facility] K[facility] Start: 07-07-2024 End: 07-07-2024 ambulatory NO ASSIGNED PCP GENERIC PROVIDER [facility] Start: 05-17-2024 End: 05-17-2024 [facility] Facility[facility] Start: 04-24-2024 End: 04-24-2024 Office outpatient visit 25 minutes Woo Small MD Work Phone: [facility] Comment on above: 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 (Primary Dx); Primary hypertension; Dyslipidemia Start: 03-28-2024 Refill Ej Guidry MA [facility] Comment on above: Medication Refill Start: 03-06-2024 Refill Paty Ortega [employer] Work Phone: [facility] [place] Comment on above: Type 1 diabetes suzie itus with diabetic neuropathy (HCC) Start: 02-24-2024 End: 02-24-2024 Office outpatient visit 15 minutes Maricruz BERMAN, DNP Work Phone: [facility] Comment on above: Stage 3b chronic kid garrikc disease (Multi) (Primary Dx); Acute on chronic systolic (congestive) heart failure (Multi); Type 1 diabetes mellitus with diabetic neuropathy (Multi) Start: 02-18-2024 End: 02-18-2024 Office outpatient visit 25 minutes Paty Ortega CNP Work Phone: [facility] [place] Comment on above: Type 1 diabetes suzie itus with diabetic neuropathy (HCC) (Primary Dx); Pure hypercholesterolemia; Essential hypertension Start: 02-07-2024 End: 02-07-2024 ambulatory NO ASSIGNED PCP GENERIC PROVIDER [facility] Start: 01-17-2024 Refill Ej Guidry MA [facility] Comment on above: Medication Refill Start: 01-14-2024 End: 01-14-2024 Office outpatient visit 15 minutes Aylin Lacy [employer] Work Phone: [facility] Comment on above: Cardiovascular stres s test abnormal (Primary Dx); Dyslipidemia; 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; Primary hypertension Start: 12-29-2023 Refill Ej Guidry MA [facility] Comment on above: Medication Refill Start: 12-15-2023 End: 12-15-2023 ambulatory [facility] Work Phone: Start: 12-15-2023 End: 12-15-2023 Patient encounter procedure [facility] [place] Work Phone: Start: 11-29-2023 End: 11-29-2023 Subsequent hospital visit by physician Jovan Faithv1 [employer] [facility] Comment on above: Arrived Start: 11-27-2023 End: 12-01-2023 Evaluation and management of inpatient Generic [facility] Work Phone: [facility] Start: 11-26-2023 End: 11-27-2023 Emergency department patient visit Ger Bansal DO Work Phone: [facility] Emergency Medicine Comment on above: NSTEMI (non-ST eleva chinyere myocardial infarction) ([facility]) (Primary Dx); MADONNA (acute kidney injury) ([facility]); Acute combined systolic and diastolic congestive heart failure ([facility]); Type 1 diabetes mellitus with other specified complication ([facility]) Start: 11-25-2023 End: 11-25-2023 ambulatory [facility] Work Phone: Start: 11-25-2023 End: 11-25-2023 Patient encounter procedure [facility] Work Phone: Start: 11-17-2023 End: 11-17-2023 [facility] Work Phone: Start: 11-17-2023 End: 11-17-2023 Patient encounter procedure [facility] Work Phone: Start: 11-02-2023 Orders Only Mary Ramirez MD Work Phone: [facility] Start: 10-22-2023 End: 10-22-2023 Patient encounter procedure [facility] Start: 10-21-2023 End: 10-21-2023 Office outpatient new 45 minutes Mary Vargas MD Work Phone: [facility] Comment on above: 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 (Primary Dx); Dyslipidemia; Congestive heart failure, unspecified HF chronicity, unspecified heart failure type (HCC) Start: 10-11-2023 End: 10-11-2023 Subsequent hospital visit by physician Jovan Faithv1 [facility] [facility] Start: 10-11-2023 Critical care ill/in jured patient init 30-74 min Aury Rouse DO Work Phone: [facility] Work Phone: Start: 10-11-2023 End: 10-13-2023 Evaluation and management of inpatient Praful Pineda MD Work Phone: [facility] Surgical Intensive Care Comment on above: [...] 25 minutes Mary Vargas MD Work Phone: [facility] [place] Comment on above: 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 Ayanna Albert Facility:[id number] Start: 07-30-2023 Refill Paty Ortega CNP Work Phone: [facility] [place] Start: 07-29-2023 Patient encounter procedure Da jovani Mirza Work Phone: [facility] Work Phone: Start: 07-27-[address] Ayanna Albert Facility:[id number] Start: 02-19-2023 End: 02-19-2023 Office outpatient visit 25 minutes Paty Ortega CNP Work Phone: [facility] Comment on above: Type 1 diabetes suzie itus with diabetic neuropathy (HCC) Start: 01-25-2023 Patient encounter procedure Da vid J Tomchak Work Phone: [facility] Work Phone: Start: 01-25-[address] Nancy Mirza Facility:[id number] Start: 01-18-2023 Patient encounter procedure Da jovani Mirza Work Phone: [facility] Work Phone: Start: 01-18-[address] Nancy Mirza Facility:[id number] Start: 01-15-2023 Patient encounter procedure Da jovani Mirza Work Phone: [facility] Work Phone: Start: 01-15-2023 [email or web address], Provider : Chaya Chan, Status: Pen, Time: 10:00 AM Nancy Mirza Work Phone: [facility] Work Phone: Start: 01-15-[address] Nancy Mirza Facility:[id number] Start: 01-13-2023 Patient encounter procedure Da jovani Mirza Work Phone: [facility] Work Phone: Start: 01-13-[address] Nancy Mirza Facility:[id number] Start: 01-08-2023 [email or web address], Provider : Chaya Chan, Status: Pen, Time: 10:00 AM Nancy Mirza Work Phone: [facility] Work Phone: Start: 01-08-[address] Nancy Mirza Facility:[id number] Start: 01-06-[address] Nancy Mirza Facility:[id number] Start: 01-06-2023 Patient encounter procedure Da jovani Mirza Work Phone: [facility] Work Phone: Start: 01-01-[address] Nancy Mirza Facility:[id number] Start: 01-01-2023 Patient encounter procedure Da jovani Mirza Work Phone: [facility] Work Phone: Start: 12-31-2022 Refill Paty Ortega [employer] Work Phone: [facility] Comment on above: Type 1 diabetes suzie itus with diabetic neuropathy (HCC) (Primary Dx) Start: 12-30-[address] Nancy Mirza Facility:[id number] Start: 12-25-[address] Nancy Mirza Facility:[id number] Start: 12-25-2022 Patient encounter procedure Da jovani Mirza Work Phone: [facility] Work Phone: Start: 12-21-2022 Patient encounter procedure Da jovani Mirza Work Phone: [facility] Work Phone: Start: 12-21-[address] Nancy Mirza Facility:[id number] Start: 10-19-2022 End: 10-19-2022 Office outpatient visit 25 minutes Paty Ortega CNP Work Phone: [facility] [place] Comment on above: Type 1 diabetes suzie itus with diabetic neuropathy (HCC) (Primary Dx); Essential hypertension; Pure hypercholesterolemia; Bilateral carotid artery stenosis; Prostate cancer screening Start: 06-19-2022 End: 06-19-2022 Office outpatient visit 25 minutes Paty Ortega CNP Work Phone: [facility] [place] Comment on above: Type 1 diabetes suzie itus with diabetic neuropathy (HCC) (Primary Dx); Essential hypertension; Elevated PSA Start: 02-13-2022 End: 02-13-2022 Office outpatient visit 25 minutes Mary Vargas MD Work Phone: [facility] [place] Comment on above: Type 1 diabetes suzie itus with diabetic neuropathy (HCC) (Primary Dx); 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); Essential hypertension; Bilateral carotid artery stenosis; Prostate cancer screening Start: 10-13-2021 End: 10-13-2021 Office outpatient visit 25 minutes Paty Ortega [employer] Work Phone: [facility] [place] Comment on above: Type 1 diabetes suzie itus with diabetic neuropathy (HCC) (Primary Dx); Essential hypertension; Pure hypercholesterolemia Start: 10-08-2021 Refill Paty Ortega [employer] Work Phone: [facility] Start: 06-20-2021 End: 06-20-2021 Office outpatient visit 25 minutes Paty Ortega [employer] Work Phone: [facility] [place] Comment on above: Type 1 diabetes suzie itus with diabetic polyneuropathy (HCC) (Primary Dx); Essential hypertension; Pure hypercholesterolemia Start: 02-26-2021 End: 02-26-2021 Subsequent hospital visit by physician Mary Vargas MD Work Phone: [facility] Comment on above: Arrived Start: 02-18-2021 End: 02-18-2021 Office outpatient visit 25 minutes Mary Vargas MD Work Phone: [facility] Comment on above: Type 1 diabetes suzie itus with diabetic polyneuropathy (HCC) (Primary Dx); Bilateral carotid artery stenosis; Essential hypertension; Type 1 diabetes mellitus with diabetic neuropathy (HCC) Start: 02-18-2021 End: 02-18-2021 Refill Mary Vargas MD Work Phone: [facility] Start: 11-22-2020 End: 11-22-2020 Orders Only Ya Nicolas Work Phone: [facility] Start: 10-18-2020 End: 10-18-2020 Office outpatient visit 25 minutes Paty Ortega Work Phone: [facility] Comment on above: Type 1 diabetes suzie itus with diabetic polyneuropathy (HCC) (Primary Dx); Type 1 diabetes mellitus with diabetic neuropathy (HCC); Essential hypertension; Pure hypercholesterolemia Start: 06-18-2020 End: 06-18-2020 Office outpatient visit 25 minutes Paty Ortega Work Phone: [facility] Comment on above: Type 1 diabetes suzie itus with diabetic polyneuropathy (HCC) (Primary Dx); Type 1 diabetes mellitus with diabetic neuropathy (HCC); Essential hypertension; Pure hypercholesterolemia Start: 11-16-2019 End: 11-16-2019 Office outpatient visit 25 minutes Paty Ortega Work Phone: [facility] Comment on above: Type I diabetes suzie itus with neurological manifestations, uncontrolled (HCC) (Primary Dx); Type 1 diabetes mellitus with diabetic polyneuropathy (HCC); Pure hypercholesterolemia Start: 07-17-2019 End: 07-17-2019 Office outpatient visit 25 minutes Keeley Patton Work Phone: [facility] Comment on above: Type 1 diabetes suzie itus with diabetic polyneuropathy (HCC) (Primary Dx); Essential hypertension; Pure hypercholesterolemia Start: 03-13-2019 End: 03-13-2019 Office outpatient visit 25 minutes Mary Vargas Work Phone: [facility] Comment on above: 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) (Primary Dx); Pure hypercholesterolemia; Essential hypertension; Type 1 diabetes mellitus with diabetic neuropathy (HCC); Prostate cancer screening Start: 11-11-2018 End: 11-11-2018 Office outpatient visit 15 minutes Keeley Patton Work Phone: [facility] Comment on above: Type 1 diabetes suzie itus with diabetic neuropathy (HCC) (Primary Dx); Essential hypertension Start: 07-05-2018 End: 07-05-2018 Office outpatient visit 25 minutes Paty Ortega Work Phone: [facility] Comment on above: Type 1 diabetes suzie itus with diabetic neuropathy (HCC) (Primary Dx); Essential hypertension; Pure hypercholesterolemia Start: 02-28-2018 End: 02-28-2018 Office/outpatient visit, est, level 3 Alexandra Givens Work Phone: [facility] Start: 02-09-2018 Ambulatory Nancy Mirza [facility] y:[place] Start: 02-09-2018 End: 02-09-2018 Ambulatory Nancy Miraz Work Phone: [facility] Start: 10-29-2017 Office/outpatient vi sit, est, level 4 Mary Arti Galvaney Work Phone: [facility] Start: 06-17-2017 End: 06-17-2017 Office outpatient visit 25 minutes Ya Parker Work Phone: [facility] Comment on above: Type [...] o2 satur ation only direct nikkie Ryley Jeetr MD Work Phone: Start: 04-19-2025 Measurement of [...] colitis,primary sclerosing cholangitis and autoimmune hepatitis.Performed at: [address] [id number] Director: Todd Anderson PhD, Phone: [phone] Start: 04-06-2025 Serum inorganic phos phate measurement [...] MD Work Phone: Start: 04-03-2025 Urine culture Ryely coulter MD Work Phone: Start: 04-03-2025 Ryley [...] or Pulmonary Embolism (PE)CRITICAL VALUE CALLED TO [id number] Victor Hugo Santamaria.RESULTS READ BACK BY SAME. Start: 04-03-2025 Estimated creatinine clearance Ryley Jeter MD Work Phone: Start: 02-28-2025 Thyrotropin [Units/v olume] in Serum or Plasma Maricruz Albert APRN-[employer], DNP Work Phone: Start: 02-12-2025 Comprehensive metabolic panel Paty Ortega [facility] Work Phone: Start: 02-12-2025 Lipid panel Paty Ortega [facility] Work Phone: Start: 02-12-2025 Lipid 1996 [...] Start: 12-01-2023 End: 12-01-2023 Glucose measurement Generic [facility] Work Phone: Start: 12-01-2023 Basic metabolic pane l calcium total Norma Geiger [employer] Work Phone: Start: 11-30-2023 Glucose measurement Gen malika [facility] Work Phone: Start: 11-30-2023 Glucose measurement Gen malika [facility] Work Phone: Start: 11-30-2023 Echo tthrc r-t 2d w/ wom-mode compl spec&colr d Norma Geiger [employer] Work Phone: Start: 11-30-2023 Basic metabolic pane l calcium total Norma Geiger [employer] Work Phone: Start: 11-29-2023 Ct thorax w/o contra st material Alfred P Ezike [employer] Work Phone: Start: 11-29-2023 Thromboplastin time partial plasma/whole blood Mary Vargas MD Work Phone: Start: 11-29-2023 Glucose measurement Gen [facility] Work Phone: Start: 11-29-2023 Ecg routine ecg w/le ast 12 lds trcg only w/o i&r Ger W Bansal DO Work Phone: Start: 11-29-2023 Glucose measurement Gen [facility] Work Phone: Start: 11-29-2023 Thromboplastin time partial plasma/whole blood Mary Vargas MD Work Phone: Start: 11-29-2023 Basic metabolic pane l calcium total Norma Tania Juanjo [employer] Work Phone: Start: 11-28-2023 Glucose measurement Gen [facility] Work Phone: Start: 11-28-2023 Glucose measurement Gen [facility] Work Phone: Start: 11-28-2023 Glucose measurement Gen [facility] Work Phone: Start: 11-28-2023 Glucose measurement Gen [facility] Work Phone: Start: 11-28-2023 Basic metabolic pane l calcium total Norma Tania Juanjo [employer] Work Phone: Start: 11-28-2023 Glucose measurement Gen [facility] Work Phone: Start: 11-28-2023 Basic metabolic pane l calcium total Norma Tania Broussard [employer] Work Phone: Start: 11-27-2023 End: 11-27-2023 Basic metabolic panel calcium total Norma Tania Broussard [employer] Work Phone: Start: 11-27-2023 C-reactive protein Mehdi gaylaa Kareen Pabon MD Work Phone: Start: 11-27-2023 Glucose measurement Gen malika [facility] Work Phone: Start: 11-27-2023 Glucose measurement Gen malika [facility] [facility] Work Phone: Start: 11-27-2023 Glucose measurement Gen malika [facility] Work Phone: Start: 11-27-2023 Basic metabolic pane l calcium total Norma Tania Broussard [employer] Work Phone: Start: 11-27-2023 Glucose measurement Gen malika [facility] Work Phone: Start: 11-27-2023 Iaad ia clostridium difficile toxin Norma Tania Broussard [employer] Work Phone: Start: 11-27-2023 Hemoglobin glycosylated a1c Mary Vargas MD Work Phone: Start: 11-27-2023 [facility] Start: 11-27-2023 Basic metabolic pane l calcium total Norma Tania Juanjo [employer] Work Phone: Start: 11-27-2023 Glucose measurement Gen malika [facility] Work Phone: Start: 11-27-2023 Glucose measurement Gen malika [facility] Work Phone: Start: 11-27-2023 End: 11-27-2023 Glucose measurement Generic [facility] Work Phone: Start: 11-27-2023 Basic metabolic pane l calcium total Nroma Tania Broussard [employer] Work Phone: Start: 11-27-2023 Glucose measurement Gen malika [facility] Work Phone: Start: 11-27-2023 Glucose measurement Gen malika [facility] Work Phone: Start: 11-27-2023 Glucose measurement Gen malika [facility] Work Phone: Start: 11-27-2023 Basic metabolic pane l calcium total Norma Geiger CNP Work Phone: Start: 11-27-2023 Influenza virus A an d B RNA and SARS-CoV-2 (COVID-19) N gene panel - Respiratory specimen by ALICE with probe detection Norma Geiger [employer] Work Phone: Start: 11-27-2023 Polymerase chain ty ction analysis Norma Geiger [employer] Work Phone: Start: 11-27-2023 End: 11-27-2023 Glucose measurement Generic [facility] Work Phone: Start: 11-27-2023 Assay of troponin quantitative Norma Geiger [employer] Work Phone: Start: 11-27-2023 Gases blood ph direc t nikkie xcpt pulse oximitry Generic [facility] Work Phone: Start: 11-27-2023 End: 11-27-2023 Glucose measurement Generic [facility] Work Phone: Start: 11-27-2023 Radiologic exam ches t single view Norma Geiger CNP Work Phone: Start: 11-27-2023 End: 11-27-2023 Gases blood ph direct nikkie xcpt pulse oximitry Generic [facility] Work Phone: Start: 11-27-2023 Ecg routine ecg w/le ast 12 lds trcg only w/o i&r Norma Geiger [employer] Work Phone: Start: 11-27-2023 OBTAIN ARTERIAL BLOO D GASES AND PERFORM Norma Geiger [employer] Work Phone: Start: 11-27-2023 OBTAIN VENOUS BLOOD GASES AND PERFORM Norma Geiger [employer] Work Phone: Start: 11-27-2023 End: 11-27-2023 Basic metabolic panel calcium total Norma Geiger [employer] Work Phone: Start: 11-27-2023 End: 11-27-2023 Culture bacterial blood aerobic w/id isolates Norma Geiger [employer] Work Phone: Start: 11-27-2023 Lipid panel Norma Tavares [employer] Work Phone: Start: 11-27-2023 End: 11-27-2023 Glucose measurement Generic [facility] Work Phone: Start: 11-27-2023 Thyrotropin [Units/v olume] in Serum or Plasma [facility] Start: 11-27-2023 Assay of troponin quantitative [...] comp foot exam completed Paty Ortega [employer] Work Phone: Start: 02-19-2023 3 comp foot exam completed Paty Ortega [employer] Work Phone: Start: 02-12-2023 Lipid 1996 panel - S laurence or Plasma Ayanna Albert DO Work Phone: Start: 02-12-2023 Thyrotropin [Units/v olume] in Serum or Plasma Ayanna Albert DO Work Phone: Start: 10-19-2022 3 comp foot exam completed Paty Ortega [employer] Work Phone: Start: 06-19-2022 3 comp foot exam completed Paty Otrega [employer] Work Phone: Start: 02-13-2022 3 comp foot exam completed Mary Vargas MD Work Phone: Start: 10-13-2021 3 comp foot exam completed Paty Ortega [employer] Work Phone: Start: 06-20-2021 3 comp foot exam completed Paty Ortega [employer] Work Phone: Start: 06-11-2021 Microalbumin [Mass/v olume] in Urine by Test strip Paty Ortega [employer] Work Phone: Start: 02-26-2021 Duplex scan extracra nial art compl bi study Mary Vargas MD Work Phone: Start: 02-18-2021 3 comp foot exam completed Mary Vargas MD Work Phone: Start: 10-18-2020 3 comp foot exam completed Paty Ortega Start: 10-14-2020 Ophthalmic examinati on and evaluation Paty Ortega [employer] Work Phone: Start: 10-03-2020 Microalbumin [Mass/v olume] [...] EJACULATION WITHIN 48 HRS. [facility] VOL24,NO.2, , PG.339 Performed By: #### [id number] #### MIKE [facility] [address] [place] [address] Start: 03-13-2019 3 comp foot exam completed Keeley Pooja Start: 11-11-2018 3 comp foot exam completed Mary Vargas Start: 07-05-2018 3 comp foot exam completed Keeley Patton Start: 02-15-2017 3 comp foot exam completed Ya Parker Plan of Treatment Date Care Activity Detail Author Start: 04-27-2026 Creatinine measurement Creatinine Level [facility] Start: 04-27-2026 Potassium measurement Pot[facility] Level [facility] Start: 04-03-2026 Echocardiography Echocardiogram [facility] Start: 02-28-2026 Thyroid stimulating hormone measurement TSH Level [facility] Start: 02-12-2026 Creatinine measurement Creatinine Level [facility] Start: 02-12-2026 Lipid panel Lipid Panel [facility] Start: 02-12-2026 Potassium measurement Potassium Level [facility] Start: 02-12-2026 Thyroid stimulating hormone measurement TSH Level [facility] Start: 02-12-2026 Urine screening for protein Diabetes: Urine Protein Screening [facility] Start: 11-13-2025 Diabetic foot examination Diabetic Foot Exam [facility] Start: 10-27-2025 Screening for malignant neoplasm of lung Low-dose CT Lung Cancer Screen [facility] Start: 10-23-2025 Glaucoma screening Diabetes: Retinopathy Screening [facility] Start: 09-23-2025 eGFR Diabetes eGFR Diabetes [facility] Start: 09-05-2025 Urine screening for protein eGFR Diabetes [facility] Start: 08-27-2025 End: 08-27-2025 Patient encounter procedure 08/27/2025 1:30 PM EDT Office Visit [facility] Building [address] [place] [address] Ayanna Albert, DO [address] [place] [address] [facility] Start: 08-14-2025 Hemoglobin A1c measurement A1C [facility] Start: 08-14-2025 Urine screening for protein eGFR Diabetes [facility] Start: 07-13-2025 End: 07-13-2025 Patient encounter procedure 07/13/2025 1:00 PM EDT Office Visit [facility] Phys[facility] [place] [address] [place] [address] Paty Ortega CNP [address] [place] [address] [facility] [place] Start: 07-07-2025 Creatinine measurement Creatinine Level [facility] Start: 07-07-2025 Potassium measurement Potassium Level [facility] Start: 07-07-2025 Thyroid stimulating hormone measurement TSH Level [facility] Start: 07-02-2025 Influenza vaccination [facility] Start: 06-12-2025 End: 06-12-2025 Patient encounter procedure 06/12/2025 9:20 AM EDT Office Visit [facility] [address] [place] [phone] Woo Small MD [address] [place] [address] [facility] Start: 06-05-2025 End: 06-05-2025 Patient encounter procedure 06/05/2025 11:00 AM EDT Office Visit [facility] [address] [place] [address] Maricruz Albert, [place] LO DRIVER-TRISTAN, DNP [address] [facility] [address] [place] [address] [facility] Start: 06-01-2025 End: 05-01-2026 Basic metabolic 2000 panel - Serum or Plasma Basic metabolic panel Lab Routine Stage 3b chronic kidney disease (Multi) Edema, unspecified type Expected: 06/01/2025 (Approximate), Expires: 05/01/2026 [facility] Work Phone: Comment on above: Expected: 06/01/2025 (Approximate), Expi res: 05/01/2026 Start: 05-30-2025 Hemoglobin A1c measurement [facility] Start: 05-17-2025 End: 05-17-2025 Patient encounter procedure [facility] Start: 05-15-2025 End: 05-01-2026 Basic metabolic 2000 panel - Serum or Plasma Basic metabolic panel Lab Routine Stage 3b chronic kidney disease (Multi) Expected: 05/15/2025 (Approximate), Expires: 05/01/2026 [facility] Work Phone: Comment on above: Expected: 05/15/2025 (Approximate), Expi res: 05/01/2026 Start: 05-15-2025 End: 05-01-2026 CBC panel - Blood by Automated count CBC Lab Routine Stage 3b chronic kidney disease (Multi) Anemia due to stage 4 chronic kidney disease Expected: 05/15/2025 (Approximate), Expires: 05/01/2026 [facility] Work Phone: Comment on above: Expected: 05/15/2025 (Approximate), Expi res: 05/01/2026 Start: 05-14-2025 Hemoglobin A1c measurement [facility] Start: 05-14-2025 End: 05-14-2025 Patient encounter procedure 05/14/2025 11:20 AM EDT Office Visit [facility] [address] [place] [phone] Woo Small MD [address] [place] [address] [facility] Start: 04-28-2025 Urine screening for protein eGFR Diabetes [facility] Start: 04-22-2025 Patient discharge [facility] Start: 04-21-2025 Application of intermittent pneumatic compression device [facility] Start: 04-20-2025 Referral to service [facility] Start: 04-20-2025 Referral to securities trader [facility] Start: 04-20-2025 [facility] Start: 04-20-2025 Inhalation therapy procedure [facility] Start: 04-19-2025 [facility] Start: 04-19-2025 Referral to service [facility] Start: 04-19-2025 Care planning and problem solving actions [facility] Start: 04-19-2025 [facility] Start: 04-19-2025 Gas panel - Arterial blood [facility] Start: 04-19-2025 Serum inorganic phosphate measurement [facility] Start: 04-19-2025 Thyroid stimulating hormone measurement [facility] Start: 04-19-2025 Assessment of risk of venous thromboembolism [facility] Start: 04-19-2025 Care regimes management [facility] Start: 04-19-2025 Catheterization of vein [facility] Start: 04-19-2025 Continuous pulse oximetry [facility] Start: 04-19-2025 Elevation of head of bed [facility] Start: 04-19-2025 Incentive spirometry [facility] Start: 04-19-2025 Insertion of catheter into peripheral vein [facility] Start: 04-19-2025 Measuring intake and output [facility] Start: 04-19-2025 Notification of physician [facility] Start: 04-19-2025 Oxygen therapy [facility] Start: 04-19-2025 Patient referral to dietitian [facility] Start: 04-19-2025 Providing care according to standard [facility] Start: 04-19-2025 Referral to windows admin [facility] Start: 04-19-2025 Referral to occupational therapist [facility] Start: 04-19-2025 Referral to service [facility] Start: 04-19-2025 Respiratory therapy [facility] Start: 04-19-2025 Tobacco use cessation education [facility] Start: 04-19-2025 Urinalysis complete panel - Urine [facility] Start: 04-19-2025 Vital signs measurements [facility] Start: 04-19-2025 End: 04-19-2025 [facility] Start: 04-19-2025 Following clinical pathway protocol [facility] Start: 04-19-2025 Pulmonary ventilation perfusion study [facility] Start: 04-19-2025 Verification routine [facility] Start: 04-19-2025 Admission procedure [facility] Start: 04-19-2025 Continuous positive airway pressure ventilation treatment [facility] Start: 04-18-2025 Urine screening for protein eGFR Diabetes [facility] Start: 04-10-2025 Patient discharge [facility] Start: 04-08-2025 Administration of blood product [facility] Start: 04-07-2025 Application of intermittent pneumatic compression device [facility] Start: 04-07-2025 Hemodialysis care [facility] Start: 04-07-2025 End: 04-07-2025 [facility] Start: 04-07-2025 [facility] Start: 04-06-2025 [facility] Start: 04-06-2025 Care of hemodialysis equipment [facility] Start: 04-06-2025 Hemodialysis care [facility] Start: 04-06-2025 [facility] Start: 04-05-2025 End: 04-06-2025 [facility] Start: 04-05-2025 Care of hemodialysis equipment [facility] Start: 04-05-2025 Dialysis care [facility] Start: 04-05-2025 Referral to general surgeon [facility] Start: 04-05-2025 Continuous pulse oximetry [facility] Start: 04-05-2025 Dual pressure spontaneous ventilation support [facility] Start: 04-04-2025 End: 04-04-2025 [facility] Start: 04-04-2025 Care regimes management [facility] Start: 04-04-2025 Notification of physician [facility] Start: 04-04-2025 Referral to windows admin [facility] Start: 04-04-2025 End: 04-05-2025 [facility] Start: 04-04-2025 [facility] Start: 04-03-2025 Referral to securities trader [facility] Start: 04-03-2025 Bacteria identified in Blood by Culture Blood Culture [facility] Start: 04-03-2025 Respiratory Panel (PCR) Respiratory Panel (PCR) [facility] Start: 04-03-2025 Following clinical pathway protocol [facility] Start: 04-03-2025 Lab findings surveillance [facility] Start: 04-03-2025 End: 04-03-2025 Care planning and problem solving actions [facility] Start: 04-03-2025 End: 04-03-2025 [facility] Start: 04-03-2025 End: 04-03-2025 Following clinical pathway protocol [facility] Start: 04-03-2025 Application of elastic bandage [facility] Start: 04-03-2025 Assessment of risk of venous thromboembolism [facility] Start: 04-03-2025 Bacteria identified in Sputum by Culture [facility] Start: 04-03-2025 Care regimes management [facility] Start: 04-03-2025 Consultation [facility] Start: 04-03-2025 Elevation of affected extremity [facility] Start: 04-03-2025 Fall prevention [facility] Start: 04-03-2025 Incentive spirometry [facility] Start: 04-03-2025 Inhalation therapy procedure [facility] Start: 04-03-2025 Insertion of catheter into peripheral vein [facility] Start: 04-03-2025 Introduction of urinary catheter [facility] Start: 04-03-2025 Measuring intake and output [facility] Start: 04-03-2025 Notification of physician [facility] Start: 04-03-2025 Oxygen therapy [facility] Start: 04-03-2025 Patient education [facility] Start: 04-03-2025 Patient referral to dietitian [facility] Start: 04-03-2025 Providing care according to standard [facility] Start: 04-03-2025 Provision of activity privileges [facility] Start: 04-03-2025 Referral to occupational therapist [facility] Start: 04-03-2025 Referral to service [facility] Start: 04-03-2025 Tobacco use cessation education [facility] Start: 04-03-2025 Vital signs measurements [facility] Start: 04-03-2025 Bacterial nucleic acid assay [facility] Start: 04-03-2025 Thyroid stimulating hormone measurement [facility] Start: 04-03-2025 Streptococcus pneumoniae antigen assay [facility] Start: 04-03-2025 Verification routine [facility] Start: 04-03-2025 Admission procedure [facility] Start: 04-03-2025 [facility] Start: 04-03-2025 End: 04-03-2025 [facility] Start: 04-03-2025 Continuous pulse oximetry [facility] Start: 04-03-2025 Dual pressure spontaneous ventilation support [facility] Start: 03-23-2025 Medicare Annual Wellness Visit Medicare Annual Wellness Visit (AWV) [facility] Start: 03-12-2025 End: 03-12-2025 Patient encounter procedure 03/12/2025 2:00 PM EDT Office Visit [facility] [place] [address] [place] [address] Paty Ortega, [employer] [address] [place] [address] [facility] [place] Start: 02-26-2025 End: 02-26-2026 Basic metabolic 2000 panel - Serum or Plasma Basic metabolic panel Lab Routine Stage 3b chronic kidney disease (Multi) Expected: 02/26/2025 (Approximate), Expires: 02/26/2026 [facility] Work Phone: Comment on above: Expected: 02/26/2025 (Approximate), Expi res: 02/26/2026 Start: 02-06-2025 Creatinine measurement Creatinine Level [facility] Start: 02-06-2025 Potassium measurement Potassium Level [facility] Start: 02-04-2025 Hemoglobin A1c measurement A1C [facility] Start: 11-29-2024 Screening for malignant neoplasm of lung Low-dose CT Lung Cancer Screen [facility] Start: 11-27-2024 Thyroid stimulating hormone measurement TSH Level [facility] Start: 11-26-2024 Creatinine measurement Creatinine Level [facility] Start: 11-26-2024 Potassium measurement Potassium Level [facility] Start: 11-20-2024 End: 11-20-2024 Patient encounter procedure 11/20/2024 2:45 PM EST Office Visit [facility] [place] [address] [place] [address] Paty Ortega, [employer] [address] [place] [address] [facility] [place] Start: 11-14-2024 End: 11-14-2024 Patient encounter procedure 11/14/2024 10:40 AM EST Office Visit [facility] [address] [place] [address] Woo Small MD [address] [place] [address] [facility] Start: 11-13-2024 End: 11-13-2024 Patient encounter procedure 11/13/2024 11:30 AM EST Office Visit [facility] [address] [place] [address] Paty Ortega CNP [address] [place] [address] [facility] Start: 11-07-2024 End: 11-07-2024 Patient encounter procedure 11/07/2024 10:00 AM EST Office Visit [facility] [address] [place] [address] 3rd [place] [address] Brock Groves MD [address] [place] [address] [facility] Start: 11-03-2024 End: 11-03-2024 Patient encounter procedure [facility] Start: 10-27-2024 End: 10-27-2024 Admission to same day surgery center 10/27/2024 10:05 AM EST - 10/27/2024 10:55 AM EST Surgery [facility] [address] [place] [address] Elías Rodriguez MD [address] [place] [address] Left Heart Cath [facility] Comment on above: Left Heart Cath Start: 10-27-2024 Subsequent hospital visit by physician [facility] Procedural Care Unit Start: 10-18-2024 End: 10-18-2024 Patient encounter procedure 10/18/2024 1:20 PM EST Office Visit [facility] [address], 3rd floor Medical [place] [address] Woo Small MD [address] [place] [address] [facility] Start: 10-13-2024 Creatinine measurement Creatinine Level [facility] Start: 10-13-2024 Potassium measurement Potassium Level [facility] Start: 10-11-2024 Echocardiography Echocardiogram [facility] Start: 10-06-2024 Hemoglobin A1c measurement [facility] Start: 09-27-2024 Lipid panel Lipid Panel [facility] Start: 09-27-2024 Thyroid stimulating hormone measurement TSH Level [facility] Start: 08-29-2024 End: 08-29-2025 Comprehensive metabolic 2000 panel - Serum or Plasma Comprehensive metabolic panel Lab Routine Stage 3b chronic kidney disease (Multi) Expected: 08/29/2024 (Approximate), Expires: 08/29/2025 [facility] Work Phone: Comment on above: Expected: 08/29/2024 (Approximate), Expi res: 08/29/2025 Start: 08-29-2024 End: 08-29-2025 Microalbumin/Creatinine [Mass Ratio] in Urine Albumin-Creatinine Ratio, Urine Random Lab Routine Stage 3b chronic kidney disease (Multi) Expected: 08/29/2024 (Approximate), Expires: 08/29/2025 [facility] Work Phone: Comment on above: Expected: 08/29/2024 (Approximate), Expi res: 08/29/2025 Start: 08-29-2024 End: 08-29-2025 Urinalysis complete panel - Urine Urinalysis with Reflex Microscopic Lab Routine Stage 3b chronic kidney disease (Multi) Expected: 08/29/2024 (Approximate), Expires: 08/29/2025 [facility] Work Phone: Comment on above: Expected: 08/29/2024 (Approximate), Expi res: 08/29/2025 Start: 08-29-2024 End: 08-29-2024 Patient encounter procedure 08/29/2024 1:00 PM EDT Office Visit [facility] Building [address] [place] [id number] Maricruz Albert, [place] LO DRIVER-[employer]ANT, [facility] [address] [place] [address] [facility] Start: 08-25-2024 End: 02-23-2025 Microalbumin/Creatinine [Mass Ratio] in Urine Albumin , Urine Random Lab Routine Stage 3b chronic kidney disease (Multi) Expected: 08/25/2024 (Approximate), Expires: 02/23/2025 [facility] Work Phone: Comment on above: Expected: 08/25/2024 (Approximate), Expi res: 02/23/2025 Start: 08-09-2024 Urine screening for protein Diabetes: Urine Protein Screening [facility] Start: 07-21-2024 End: 07-21-2024 Patient encounter procedure 07/21/2024 1:45 PM EDT Office Visit [facility] [place] [address] [place] [address] Paty Ortega, TRISTAN [address] [place] [address] [facility] [place] Start: 07-02-2024 COVID-19 Vaccine ( season) COVID-19 Vaccine ( season) [facility] Start: 07-02-2024 COVID-19 Vaccine ( season) COVID-19 Vaccine () [facility] Start: 07-02-2024 Influenza vaccination [facility] Start: 06-21-2024 Diabetic foot examination [facility] Start: 05-31-2024 Urine screening for protein eGFR Diabetes [facility] Start: 04-24-2024 End: 04-24-2024 ambulatory [facility] Start: 04-24-2024 End: 04-24-2024 Patient encounter procedure 04/24/2024 9:40 AM EDT Office Visit [facility] [address] [place] [phone] Woo Small MD [facility] [place] [address] [facility] [facility] Start: 03-27-2024 Hemoglobin A1c measurement A1C [facility] Start: 02-26-2024 Hemoglobin A1c measurement [facility] Start: 02-24-2024 End: 02-23-2025 Basic metabolic 2000 panel - Serum or Plasma Basic metabolic panel Lab Routine Stage 3b chronic kidney disease (Multi) Expected: 02/24/2024 (Approximate), Expires: 02/23/2025 [facility] Work Phone: Comment on above: Expected: 02/24/2024 (Approximate), Expi res: 02/23/2025 Start: 02-24-2024 End: 02-23-2025 Phosphate [Mass/volume] in Serum or Plasma Phosphorus Lab Routine Stage 3b chronic kidney disease (Multi) Expected: 02/24/2024 (Approximate), Expires: 02/23/2025 [facility] Work Phone: Comment on above: Expected: 02/24/2024 (Approximate), Expi res: 02/23/2025 Start: 02-24-2024 End: 02-23-2025 Urate [Mass/volume] in Serum or Plasma Uric acid Lab Routine Stage 3b chronic kidney disease (Multi) Expected: 02/24/2024 (Approximate), Expires: 02/23/2025 [facility] Work Phone: Comment on above: Expected: 02/24/2024 (Approximate), Expi res: 02/23/2025 Start: 02-24-2024 End: 02-24-2024 Patient encounter procedure 02/24/2024 1:45 PM EDT Office Visit [facility] [address] [place] [address] Maricruz Albert, [place] LO DRIVER-[employer]ANT, DNP [address] [place] [address] [facility] Start: 02-20-2024 Diabetic foot examination Foot Exam [facility] Start: 02-18-2024 End: 02-18-2024 ambulatory [facility] [place] Start: 02-18-2024 End: 02-18-2024 Patient encounter procedure 02/18/2024 1:00 PM EDT Office Visit [facility] [place] [address] [place] [address] Paty Ortega, TRISTAN [address] [place] [address] [facility] [place] Start: 02-13-2024 Lipid panel Lipid Panel [facility] Start: 02-13-2024 Thyroid stimulating hormone measurement TSH Level [facility] Start: 01-14-2024 End: 01-14-2024 ambulatory [facility] Start: 01-14-2024 End: 01-14-2024 Patient encounter procedure 01/14/2024 11:00 AM EDT Office Visit [facility] [address] [facility] [address] Aylin Lacy CNP [address] [place] [address] [facility] Start: 01-12-2024 End: 01-12-2024 ambulatory [facility] Start: 01-12-2024 End: 01-12-2024 Patient encounter procedure [facility] Start: 01-10-2024 End: 10-08-2024 Comprehensive metabolic 2000 panel - Serum or Plasma Comprehensive Metabolic Panel Lab Routine 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) Expected: 01/10/2024 (Approximate), Expires: 10/08/2024 [facility] Work Phone: Comment on above: Expected: 01/10/2024 (Approximate), Expi res: 10/08/2024 Start: 01-10-2024 End: 10-08-2024 Hemoglobin A1c/Hemoglobin.total in Blood Hemoglobin A1c Lab Routine 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) Expected: 01/10/2024 (Approximate), Expires: 10/08/2024 [facility] Comment on above: Expected: 01/10/2024 (Approximate), Expi res: 10/08/2024 Start: 12-28-2023 Hemoglobin A1c measurement Diabetes: Hemoglobin A1C [facility] Start: 12-09-2023 Glaucoma screening Diabetes: Retinopathy Screening [facility] Start: 11-29-2023 End: 11-29-2023 Patient encounter procedure [facility] Start: 10-19-2023 Diabetic foot examination Foot Exam [facility] Start: 10-08-2023 End: 10-08-2023 Patient encounter procedure 10/08/2023 11:15 AM EST Office Visit [facility] [place] [address] [place] [address] Mary Vargas MD [address] [place] [address] [facility] [place] Start: 09-11-2023 Hemoglobin A1c measurement [facility] Start: 08-25-2023 End: 08-25-2024 Basic metabolic 2000 panel - Serum or Plasma Basic metabolic panel Lab Routine Stage 3b chronic kidney disease (CMS/HCC) Expected: 08/25/2023 (Approximate), Expires: 08/25/2024 [facility] Work Phone: Comment on above: Expected: 08/25/2023 (Approximate), Expi res: 08/25/2024 Start: 08-25-2023 End: 08-25-2024 Microalbumin/Creatinine [Mass Ratio] in Urine Albumin, urine, random Lab Routine Stage 3b chronic kidney disease (CMS/HCC) Expected: 08/25/2023 (Approximate), Expires: 08/25/2024 [facility] Work Phone: Comment on above: Expected: 08/25/2023 (Approximate), Expi res: 08/25/2024 Start: 07-02-2023 COVID-19 Vaccine () COVID-19 Vaccine () [facility] Start: 07-02-2023 Influenza vaccination [facility] Start: 06-21-2023 End: 06-21-2023 Patient encounter procedure 06/21/2023 1:15 PM EDT Office Visit [facility] [place] [address] [place] [address] Paty Ortega, TRISTAN [address] [place] [address] [facility] [place] Start: 06-19-2023 Diabetic foot examination Foot Exam [facility] Start: 06-01-2023 End: 02-20-2024 Comprehensive metabolic 2000 panel - Serum or Plasma Comprehensive Metabolic Panel Lab Routine Type 1 diabetes mellitus with diabetic neuropathy (HCC) Expected: 06/01/2023, Expires: 02/20/2024 [facility] Work Phone: Comment on above: Expected: 06/01/2023, Expires: 4 Start: 06-01-2023 End: 02-20-2024 Hemoglobin A1c/Hemoglobin.total in Blood Hemoglobin A1c Lab Routine Type 1 diabetes mellitus with diabetic neuropathy (HCC) Expected: 06/01/2023, Expires: 02/20/2024 [facility] Comment on above: Expected: 06/01/2023, Expires: 4 Start: 05-14-2023 Hemoglobin A1c measurement A1C [facility] Start: 02-19-2023 End: 02-19-2023 Patient encounter procedure 02/19/2023 Office Visit Endocrinology Paty Ortega CNP [address] [place] [address] [facility] [place] Start: 02-13-2023 Diabetic foot examination Foot Exam [facility] Start: 02-05-2023 End: 02-05-2023 Patient encounter procedure 02/05/2023 Appointment Cardiology Paty Ortega CNP [address] [place] [address] [facility] Start: 01-30-2023 End: 10-20-2023 Complete blood count with white cell differential, manual CBC and Differential Lab Routine Type 1 diabetes mellitus with diabetic neuropathy (HCC) Expected: 01/30/2023, Expires: 10/20/2023 [facility] Comment on above: Expected: 01/30/2023, Expires: 3 Start: 01-30-2023 End: 10-20-2023 Comprehensive metabolic 2000 panel - Serum or Plasma Comprehensive Metabolic Panel Lab Routine Type 1 diabetes mellitus with diabetic neuropathy (HCC) Expected: 01/30/2023, Expires: 10/20/2023 [facility] Comment on above: Expected: 01/30/2023, Expires: 3 Start: 01-30-2023 End: 10-20-2023 Hemoglobin A1c/Hemoglobin.total in Blood Hemoglobin A1c Lab Routine Type 1 diabetes mellitus with diabetic neuropathy (HCC) Expected: 01/30/2023, Expires: 10/20/2023 [facility] Comment on above: Expected: 01/30/2023, Expires: 3 Start: 01-30-2023 End: 10-20-2023 Lipid 1996 panel - Serum or Plasma Lipid Panel Lab Routine Type 1 diabetes mellitus with diabetic neuropathy (HCC) Expected: 01/30/2023, Expires: 10/20/2023 [facility] Comment on above: Expected: 01/30/2023, Expires: 3 Start: 01-30-2023 End: 10-19-2023 Microalbumin measurement, urine, quantitative Microalbumin/Creatinine Ratio, UR Random Lab Routine Type 1 diabetes mellitus with diabetic neuropathy (HCC) Expected: 01/30/2023, Expires: 10/19/2023 [facility] Comment on above: Expected: 01/30/2023, Expires: [...] diabetic neuropathy (HCC) Expected: 01/30/2023, Expires: 10/20/2023 [facility] Comment on above: Expected: 01/30/2023, Expires: 3 Start: 01-30-2023 End: 10-20-2023 Thyroxine (T4) free [Mass/volume] in Serum or Plasma T4, Free Lab Routine Type 1 diabetes mellitus with diabetic neuropathy (HCC) Expected: 01/30/2023, Expires: 10/20/2023 [facility] Comment on above: Expected: 01/30/2023, Expires: 3 Start: 01-25-2023 [email or web address], Provider: Zoila Lopez, Status: Pen, Time: 2:45 PM PTFUADULT4, Provider: Zoila Lopez, Status: Pen, Time: 2:45 PM [facility] Work Phone: Start: 01-18-2023 PTRECHECKA, Provider: Carlene Whitehead, Status: Pen, Time: 2:00 PM PTRECHECKA, Provider: Carlene Whitehead, Status: Pen, Time: 2:[address] [facility] Work Phone: Start: 01-15-2023 [email or web address], Provider: Chaya Chan, Status: Pen, Time: 10:00 AM PTFUADULT4, Provider: Chaya Chan, Status: Pen, Time: 10:00 AM [facility]: Start: 01-13-2023 [email or web address], Provider: Chaya Chan, Status: Pen, Time: 10:00 AM PTFUADULT4, Provider: Chaya Chan, Status: Pen, Time: 10:[address] [facility] Work Phone: Start: 01-08-2023 PTFUADULT4, Provider: Chaya Chan, Status: Pen, Time: 10:00 AM PTFUADULT4, Provider: Chaya Chan, Status: Pen, Time: 10:00 AM [facility] Work [facility]: Start: 01-06-2023 PTFUADULT4, Provider: Zoila Lopez, Status: Pen, Time: 10:00 AM PTFUADULT4, Provider: Zoila Lopez, Status: Pen, Time: 10:00 AM [facility] Work [facility]: Start: 01-01-2023 [email or web address], Provider: Zoila Lopez, Status: Pen, Time: 10:45 AM PTFUADULT4, Provider: Zoila Lopez, Status: Pen, Time: 10:45 AM [facility] Work [facility]: Start: 12-30-2022 PTFUADULT4, Provider: Zoila Lopez, Status: Pen, Time: 4:15 PM PTFUADULT4, Provider: Zoila Lopez, Status: Pen, Time: 4:15 PM [facility] Work Phone: Start: 12-25-2022 PTFUADULT4, Provider: Chaya Chan, Status: Pen, Time: 7:45 AM PTFUADULT4, Provider: Chaya Chan, Status: Pen, Time: 7:45 AM [facility] Work [facility]: Start: 10-19-2022 End: 10-19-2022 Patient encounter procedure 10/19/2022 Office Visit Endocrinology Paty Ortega, [employer]ANT [address] [place] [address] [facility] [place] Start: 10-13-2022 Diabetic foot examination Foot Exam [facility] Start: 09-08-2022 Hemoglobin A1c measurement A1C [facility] Start: 07-02-2022 Influenza vaccination [facility] Start: 06-20-2022 Diabetic foot examination Foot Exam [facility] Start: 06-19-2022 End: 06-19-2022 Patient encounter procedure 06/19/2022 Office Visit Endocrinology Paty Ortega CNP [address] [place] [address] [facility] [place] Start: 06-11-2022 Microalbumin measurement, urine, quantitative Urine Microalbumin [facility] Start: 05-27-2022 History and physical examination, annual for health maintenance Wellness Visit [facility] Start: 05-27-2022 Medicare Wellness Visit Medicare Wellness Visit [facility] Start: 04-13-2022 Hemoglobin A1c measurement A1C [facility] Start: 03-06-2022 COVID-19 Vaccine (4 - Booster for Moderna series) COVID-19 Vaccine (4 - Booster for Moderna series) [facility] Start: 02-18-2022 Diabetic foot examination Foot Exam [facility] Start: 02-13-2022 End: 02-13-2022 Patient encounter procedure 02/13/2022 Office Visit Endocrinology Mary Vargas MD [address] [place] [address] [facility] [place] Start: 01-30-2022 End: 10-14-2022 Comprehensive metabolic 2000 panel - Serum or Plasma Comprehensive Metabolic Panel Lab Routine Type 1 diabetes mellitus with diabetic neuropathy (HCC) Expected: 01/30/2022, Expires: 10/14/2022 [facility] Work Phone: Comment on above: Expected: 01/30/2022, Expires: 2 Start: 01-30-2022 End: 10-14-2022 Hemoglobin A1c/Hemoglobin.total in Blood Hemoglobin A1c Lab Routine Type 1 diabetes mellitus with diabetic neuropathy (HCC) Expected: 01/30/2022, Expires: 10/14/2022 [facility] Comment on above: Expected: 01/30/2022, Expires: 2 Start: 01-30-2022 End: 10-14-2022 Lipid 1996 panel - Serum or Plasma Lipid Panel Lab Routine Type 1 diabetes mellitus with diabetic neuropathy (HCC) Expected: 01/30/2022, Expires: 10/14/2022 [facility] Comment on above: Expected: 01/30/2022, Expires: 2 Start: 01-01-2022 COVID-19 Vaccine (4 - Booster for Moderna series) COVID-19 Vaccine (4 - Booster for Moderna series) [facility] Start: 01-01-2022 COVID-19 Vaccine (4 - Moderna series) COVID-19 Vaccine (4 - Moderna series) [facility] Start: 12-12-2021 Hemoglobin A1c measurement A1C [facility] Start: 12-12-2021 Microalbumin measurement, urine, quantitative Urine Microalbumin [facility] Start: 12-12-2021 Urine screening for protein [facility] Start: 10-18-2021 Diabetic foot examination Foot Exam [facility] Start: 10-14-2021 Glaucoma screening [facility] Start: 10-13-2021 End: 10-13-2021 Patient encounter procedure 10/13/2021 Office Visit Endocrinology Paty Ortega, [employer] CON[employer]ULT[employer] [address] [place] [address] [facility] [place] Start: 10-03-2021 Albumin DL <= 20 mg/L (U) [Mass/Vol] Urine Microalbumin [facility] Start: 10-03-2021 Microalbumin measurement, urine, quantitative Urine Microalbumin [facility] Start: 10-01-2021 End: 06-21-2022 Comprehensive metabolic 2000 panel - Serum or Plasma Comprehensive Metabolic Panel Lab Routine Type 1 diabetes mellitus with diabetic polyneuropathy (HCC) Expected: 10/01/2021, Expires: 06/21/2022 [facility] Work Phone: Comment on above: Expected: 10/01/2021, Expires: 2 Start: 10-01-2021 End: 06-21-2022 Hemoglobin A1c/Hemoglobin.total in Blood Hemoglobin A1c Lab Routine Type 1 diabetes mellitus with diabetic polyneuropathy (HCC) Expected: 10/01/2021, Expires: 06/21/2022 [facility] Comment on above: Expected: 10/01/2021, Expires: 2 Start: 10-01-2021 End: 06-21-2022 Thyrotropin [Units/volume] in Serum or Plasma TSH Lab Routine Type 1 diabetes mellitus with diabetic polyneuropathy (HCC) Expected: 10/01/2021, Expires: 06/21/2022 [facility] Comment on above: Expected: 10/01/2021, Expires: 2 Start: 10-01-2021 End: 06-21-2022 Thyroxine (T4) free [Mass/volume] in Serum or Plasma T4, Free Lab Routine Type 1 diabetes mellitus with diabetic polyneuropathy (HCC) Expected: 10/01/2021, Expires: 06/21/2022 [facility] Comment on above: Expected: 10/01/2021, Expires: 2 Start: 09-11-2021 Hemoglobin A1c measurement A1C [facility] Start: 08-13-2021 Hemoglobin A1c measurement A1C [facility] Start: 07-31-2021 COVID-19 Vaccine (3 - Booster for Moderna series) COVID-19 Vaccine (3 - Booster for Moderna series) [facility] Start: 07-04-2021 Prostate specific antigen measurement PSA Level [facility] Start: 07-02-2021 Influenza vaccination Sequential Influenza Vaccine (#1) [facility] Start: 06-20-2021 End: 06-20-2021 Patient encounter procedure 06/20/2021 Office Visit Endocrinology Paty Ortega CNP [address] [place] [address] [phone] [facility] [place] Start: 04-16-2021 History and physical examination, annual for health maintenance Wellness Visit [facility] Start: 04-03-2021 HbA1c (Bld) [Mass fraction] A1C [facility] Start: 02-18-2021 End: 02-18-2021 Office Visit 02/18/2021 Office Visit Endocrinology Mary Vargas MD [address] [place] [address] [phone] [facility] Start: 02-02-2021 End: 10-19-2021 Comprehensive metabolic 2000 panel Comprehensive Metabolic Panel Lab Routine Type 1 diabetes mellitus with diabetic polyneuropathy (HCC) Expected: 02/02/2021, Expires: 10/19/2021 [facility] Comment on above: Expected: 02/02/2021, Expires: Start: 02-02-2021 End: 10-19-2021 Free T4 [Mass/Vol] T4, Free Lab Routine Type 1 diabetes mellitus with diabetic polyneuropathy (HCC) Expected: 02/02/2021, Expires: 10/19/2021 [facility] Comment on above: Expected: 02/02/2021, Expires: Start: 02-02-2021 End: 10-19-2021 HbA1c (Bld) [Mass fraction] Hemoglobin A1c Lab Routine Type 1 diabetes mellitus with diabetic polyneuropathy (HCC) Expected: 02/02/2021, Expires: 10/19/2021 [facility] Comment on above: Expected: 02/02/2021, Expires: Start: 02-02-2021 End: 10-19-2021 TSH Qn TSH Lab Routine Type 1 diabetes mellitus with diabetic polyneuropathy (HCC) Expected: 02/02/2021, Expires: 10/19/2021 [facility] Comment on above: Expected: 02/02/2021, Expires: Start: 12-11-2020 HbA1c (Bld) [Mass fraction] A1C [facility] Start: 11-16-2020 Diabetic foot examination Foot Exam [facility] Start: 10-18-2020 End: 10-18-2020 Office Visit 10/18/2020 Office Visit Endocrinology Keeley Patton, [employer] [address] [address] [phone] [facility] Start: 10-01-2020 End: 06-19-2021 Comprehensive metabolic 2000 panel Comprehensive Metabolic Panel Lab Routine Type 1 diabetes mellitus with diabetic polyneuropathy (HCC) Expected: 10/01/2020, Expires: 06/19/2021 [facility] Comment on above: Expected: 10/01/2020, Expires: Start: 10-01-2020 End: 06-19-2021 HbA1c (Bld) [Mass fraction] Hemoglobin A1c Lab Routine Type 1 diabetes mellitus with diabetic polyneuropathy (HCC) Expected: 10/01/2020, Expires: 06/19/2021 [facility] Comment on above: Expected: 10/01/2020, Expires: 1 Start: 10-01-2020 End: 06-19-2021 Lipid 1996 panel Lipid Panel Lab Routine Type 1 diabetes mellitus with diabetic polyneuropathy (HCC) Expected: 10/01/2020, Expires: 06/19/2021 [facility] Comment on above: Expected: 10/01/2020, Expires: 1 Start: 10-01-2020 End: 06-18-2021 Microalbumin measurement, urine, quantitative Microalbumin/Creatinine Ratio, UR Random Lab Routine Type 1 diabetes mellitus with diabetic polyneuropathy (HCC) Expected: 10/01/2020, Expires: 06/18/2021 [facility] Comment on above: Expected: 10/01/2020, Expires: 1 Start: 07-17-2020 Diabetic foot examination FOOT EXAM [facility] Start: 07-02-2020 Influenza vaccination Sequential Influenza Vaccine (#1) [facility] Start: 07-02-2020 Influenza vaccination given Sequential Influenza Vaccine (#1) [facility] Start: 05-03-2020 HbA1c (Bld) [Mass fraction] A1C [facility] Start: 03-15-2020 End: 03-15-2020 Office Visit 03/15/2020 Office Visit Endocrinology Keeley Patton, [employer] [address] [address] [phone] [facility] Start: 03-13-2020 Diabetic foot examination FOOT EXAM [facility] Start: 01-02-2020 HbA1c (Bld) [Mass fraction] A1C [facility] Start: 11-16-2019 End: 11-16-2019 Office Visit 11/16/2019 Office Visit Endocrinology Paty Ortega CNP [address] [address] [phone] [facility] Start: 11-11-2019 Diabetic foot examination FOOT EXAM [facility] Start: 07-17-2019 End: 07-17-2019 Office Visit 07/17/2019 Office Visit Endocrinology Keeley Patton, TRISTAN [address] [place] [address] [phone] [facility] Start: 07-05-2019 Diabetic foot examination FOOT EXAM [facility] Start: 07-02-2019 Influenza vaccination given [facility] Start: 03-13-2019 End: 03-13-2019 Ambulatory 03/13/2019 Office Visit Endocrinology Mary Vargas MD [address] [place] [address] [phone] [facility] Start: 02-28-2019 Diabetic foot examination (regime/therapy) FOOT EXAM [facility] Start: 01-31-2019 Pneumococcal vaccination PNEUMOCOCCAL VACCINE AGE 65+ (2 of 2 - PPSV23) [facility] Start: 2018 Respiratory Syncytial Virus Immunization: Risk, 60-74 Risk, or 75+ (1 - 1-dose 75+ series) Respiratory Syncytial Virus Immunization: Risk, 60-74 Risk, or 75+ (1 - 1-dose 75+ series) [facility] Start: 2018 RSV High Risk: (Elderly (60+) or Population) (1 - 1-dose 75+ series) RSV High Risk: (Elderly (60+) or Population) (1 - 1-dose 75+ series) [facility] Start: 11-08-2018 End: 11-08-2018 Ambulatory 11/08/2018 Office Visit Endocrinology Ya Parker PA-C [address] [place] [address] [phone] [facility] Start: 10-29-2018 Diabetic foot examination (regime/therapy) FOOT EXAM [facility] Work Phone: Start: 07-05-2018 End: 07-05-2018 Ambulatory 07/05/2018 Office Visit Endocrinology Paty Ortega CNP [address] [place] [address] [phone] [facility] Start: 07-02-2018 Influenza vaccination [facility] Start: 07-02-2018 Influenza vaccination given SEQUENTIAL INFLUENZA VACCINE (#1) [facility] Start: 02-28-2018 Ambulatory 02/28/2018 Office Visit Endocrinology Chon Alexandra BuckTRISTAN titus [address] [place] [address] [phone] [facility] Start: 02-15-2018 3 comp foot exam completed FOOT EXAM [facility] Work Phone: Start: 10-29-2017 Ambulatory 10/29/2017 Office Visit Endocrinology Mary Vargas MD [address] [place] [address] [phone] [facility] Start: 07-02-2017 Influenza vaccination SEQUENTIAL INFLUENZA VACCINE (#1) [facility] Work Phone: Start: 07-02-2017 SEQUENTIAL INFLUENZA VACCINE (#1) SEQUENTIAL INFLUENZA VACCINE (#1) [facility] Work Phone: Start: 05-10-2017 HbA1c [facility] Work Phone: Start: 2008 ABDOMINAL AORTIC ULTRASOUND ABDOMINAL AORTIC ULTRASOUND [facility] Work Phone: Start: 2008 Fall risk assessment [facility] Start: 2008 Pneumococcal vaccination PNEUMOCOCCAL VACCINE AGE 65+ (1 of 2 - PCV13) [facility] Work Phone: Start: 2008 PNEUMOCOCCAL VACCINE AGE 65+ (1 of 2 - PCV13) PNEUMOCOCCAL VACCINE AGE 65+ (1 of 2 - PCV13) [facility] Work Phone: Start: 2008 Ultrasound scan of abdominal aorta ABDOMINAL AORTIC ULTRASOUND [facility] Work Phone: Start: 2003 RSV patients and/or patients aged 60+ years (1 - 1-dose 60+ series) RSV patients and/or patients aged 60+ years (1 - 1-dose 60+ series) [facility] Start: 2003 Zoster vacc, sc ZOSTER VACCINE [facility] Work Phone: Start: 1993 Administration of herpes zoster vaccine ZOSTER VACCINES (1 of 2) [facility] Start: 1993 ZOSTER VACCINES (1 of 2) ZOSTER VACCINES (1 of 2) [facility] Start: 1965 DTaP/Tdap/Td Vaccines (1 - Tdap) DTaP/Tdap/Td Vaccines (1 - Tdap) [facility] Start: 1961 Hepatitis C antibody, confirmatory test Hepatitis C Screening [facility] Start: 1961 Hepatitis C screening Hepatitis C Screening [facility] Start: 1955 Adolescent depression screening assessment Depression Screening (PHQ9) [facility] Start: 1955 Depression screening using PHQ-9 (Patient Health Questionnaire 9) score [facility] Start: 1953 Albumin Test strip detection limit <= 20 mg/L mass conc (U) URINE MICROALBUMIN [facility] Work Phone: Start: 1953 Diabetic foot examination Diabetes: Foot Exam [facility] Start: 1953 Glaucoma screening [facility] Start: 1953 Ophthalmic examination and evaluation OPHTHALMOLOGY EXAM [facility] Start: 1953 Urine, microalbumin URINE MICROALBUMIN [facility] Work Phone: Start: 1949 Pneumococcal Vaccine: Age 65+ (1 of 2 - PPSV23) Pneumococcal Vaccine: Age 65+ (1 of 2 - PPSV23) [facility] Start: 1946 History and physical examination, annual for health maintenance Wellness Visit [facility] Start: 1943 End: 1943 Low-dose CT Lung Cancer Screen Low-dose CT Lung Cancer Screen [facility] Work Phone: Start: 1943 Protein mass conc COLONOSCOPY [facility] Start: 1943 Screening colonoscopy COLONOSCOPY [facility] Work Phone: Start: 1943 End: 1943 Screening for malignant neoplasm of lung Low-dose CT Lung Cancer Screen [facility] Start: 1943 End: 1943 Tetanus vaccination [facility] Start: 1943 Colonoscopy COLONOSCOPY [facility] Work Phone: Start: 1943 Cyanocobalamin vitamin b-12 Vitamin B-12 [facility] Start: 1943 Diabetes: Celiac Disease Screening Diabetes: Celiac Disease Screening [facility] Start: 1943 Fall risk assessment Falls Risk Assessment [facility] Start: 1943 Low dose computed tomography of chest without contrast Low-dose CT Lung Cancer Screen [facility] Start: 1943 Medicare Annual Wellness Visit Medicare Annual Wellness Visit (AWV) [facility] Start: 1943 Prostate specific antigen measurement PSA Level [facility] Start: 1943 Screening for malignant neoplasm of colon Colorectal Cancer Screening: Colonoscopy [facility] Start: 1943 TETANUS EVERY 10 YR TETANUS EVERY 10 YR [facility] Work Phone: Alanine aminotransferase [Enzymatic activity/volume] in Serum or Plasma [facility] Alanine aminotransferase [Enzymatic activity/volume] in Serum or Plasma [facility] Alanine aminotransferase [Enzymatic activity/volume] in Serum or Plasma [facility] Albumin [Mass/volume ] in Serum or Plasma [facility] Albumin [Mass/volume ] in Serum or Plasma [facility] Albumin [Mass/volume ] in Serum or Plasma [facility] Alkaline phosphatase [Enzymatic activity/volume] in Serum or Plasma [facility] Alkaline phosphatase [Enzymatic activity/volume] in Serum or Plasma [facility] Alkaline phosphatase [Enzymatic activity/volume] in Serum or Plasma [facility] Anion gap in Serum o r Plasma [facility] Anion gap in Serum o r Plasma [facility] Anion gap in Serum o r Plasma [facility] aPTT in Platelet poo r plasma by Coagulation assay aPTT - baseline Lab STAT As needed (Lab) for 1 Occurrences starting 11/26/2023 [facility] Work Phone: Comment on above: As needed (Lab) for 1 Occurrences starti ng 11/26/2023 Bacteria identified in Blood by Culture [facility] Work Phone: End: 11-26-2023 Bacteria identified in Blood by Culture [facility] Work Phone: Comment on above: STAT (Lab) for 1 Occurrences starting until 11/26/2023 Bacteria identified in Blood by Culture [facility] Work Phone: End: 10-27-2024 Bacteria identified in Unspecified specimen by [employer] culture [facility] Work Phone: Comment on above: Once for 1 Occurrences starting 10/27/20 until 10/27/2024 End: 06-18-2018 Basic metabolic 2000 panel Basic Metabolic Panel Routine Type 1 diabetes mellitus with diabetic neuropathy (HCC) 1 Occurrences starting 06/17/2017 until 06/18/2018 [facility] Work Phone: Comment on above: 1 Occurrences starting 06/17/2017 until 06/18/2018 End: 10-14-2023 Basic metabolic 2000 panel - Serum or Plasma Basic Metabolic Panel Lab Routine Morning draw (Lab) for 3 Occurrences starting 10/12/2023 until 10/14/2023, 1 completed [facility] Work Phone: Comment on above: Morning draw (Lab) for 3 Occurrences sta rting 10/12/2023 until 10/14/2023, 1 completed End: 03-09-2026 Basic metabolic 2000 panel - Serum or Plasma Basic metabolic panel Lab Routine Coronary 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 NSTEMI (non-ST elevated myocardial infarction) (HCC) 1 Occurrences starting 03/09/2025 until 03/09/2026 [facility] Work Phone: Comment on above: 1 Occurrences starting 03/09/2025 until 03/09/2026 Bilirubin, total measurement [facility] Bilirubin, total measurement [facility] Bilirubin, total measurement [facility] BUN/Creatinine ratio [facility] BUN/Creatinine ratio [facility] BUN/Creatinine ratio [facility] Calcium [Mass/volume ] in Serum or Plasma [facility] Calcium [Mass/volume ] in Serum or Plasma [facility] Calcium [Mass/volume ] in Serum or Plasma [facility] Carbon dioxide, tota l [Moles/volume] in Central venous blood [facility] Carbon dioxide, tota l [Moles/volume] in Central venous blood [facility] Carbon dioxide, tota l [Moles/volume] in Central venous blood [facility] End: 04-20-2022 Carotid artery doppler assessment Ultrasound doppler carotid Vascular Ultrasound Routine Bilateral carotid artery stenosis 1 Occurrences starting 02/18/2021 until 04/20/2022 [facility] Comment on above: 1 Occurrences starting 02/18/2021 until 04/20/2022 End: 12-20-2023 Carotid artery doppler assessment Ultrasound doppler carotid Vascular Ultrasound Routine Bilateral carotid artery stenosis 1 Occurrences starting 10/19/2022 until 12/20/2023 [facility] Work Phone: Comment on above: 1 Occurrences starting 10/19/2022 until 12/20/2023 Cath plmt l hrt & ar ts w/njx & angio img s&i LEFT HEART CATH Cardiovascular stress test abnormal Fatigue, unspecified type SOB (shortness of breath) [facility] End: 02-28-2019 CBC and Differential CBC and Differential Routine Type 1 diabetes mellitus with diabetic neuropathy (HCC) 1 Occurrences starting 02/28/2018 until 02/28/2019 [facility] CBC panel - Blood by Automated count CBC Lab STAT As needed (Lab) for 1 Occurrences starting 11/26/2023 [facility] Work Phone: Comment on above: As needed (Lab) for 1 Occurrences starti ng 11/26/2023 End: 12-02-2023 CBC panel - Blood by Automated count CBC Lab STAT Every other day (Lab) for 3 Occurrences starting 11/28/2023 until 12/02/2023 [facility] Work Phone: Comment on above: Every other day (Lab) for 3 Occurrences starting 11/28/2023 until 12/02/2023 End: 10-14-2023 CBC W Auto Differential panel - Blood CBC and Auto Differential Lab Routine Morning draw (Lab) for 3 Occurrences starting 10/12/2023 until 10/14/2023, 2 completed [facility] Work Phone: Comment on above: Morning draw (Lab) for 3 Occurrences sta rting 10/12/2023 until 10/14/2023, 2 completed Cholesterol [Mass/volume] in Serum or Plasma [facility] Cholesterol in HDL [Mass/volume] in Serum or Plasma [facility] End: 11-11-2019 Complete blood count with white cell differential, manual CBC and Differential Routine Type 1 diabetes mellitus with diabetic neuropathy (HCC) 1 Occurrences starting 11/11/2018 until 11/11/2019 [facility] Comment on above: 1 Occurrences starting 11/11/2018 until 11/11/2019 End: 03-13-2020 Complete blood count with white cell differential, manual CBC and Differential Routine 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) 1 Occurrences starting 03/13/2019 until 03/13/2020 [facility] Comment on above: 1 Occurrences starting 03/13/2019 until 03/13/2020 End: 02-19-2022 Complete blood count with white cell differential, manual CBC and Differential Lab Routine Type 1 diabetes mellitus with diabetic polyneuropathy (HCC) 1 Occurrences starting 02/18/2021 until 02/19/2022 [facility] Comment on above: 1 Occurrences starting 02/18/2021 until 02/19/2022 End: 02-14-2023 Complete blood count with white cell differential, manual CBC and Differential Lab Routine Type 1 diabetes mellitus with diabetic neuropathy (HCC) 1 Occurrences starting 02/13/2022 until 02/14/2023 [facility] Work Phone: Comment on above: 1 Occurrences starting 02/13/2022 until 02/14/2023 End: 02-18-2025 Complete blood count with white cell differential, manual CBC and Differential Lab Routine Type 1 diabetes mellitus with diabetic neuropathy (HCC) 1 Occurrences starting 02/18/2024 until 02/18/2025 [facility] Comment on above: 1 Occurrences starting 02/18/2024 until 02/18/2025 End: 07-22-2025 Complete blood count with white cell differential, manual CBC and Differential Lab Routine Type 1 diabetes mellitus with diabetic neuropathy (HCC) 1 Occurrences starting 07/21/2024 until 07/22/2025 [facility] Comment on above: 1 Occurrences starting 07/21/2024 until 07/22/2025 End: 03-13-2026 Complete blood count with white cell differential, manual CBC and Differential Lab Routine Type 1 diabetes mellitus with diabetic neuropathy (HCC) 1 Occurrences starting 03/12/2025 until 03/13/2026 [facility] Comment on above: 1 Occurrences starting 03/12/2025 until 03/13/2026 End: 10-27-2025 Complete PFT with Pre and Post Bronchodilator Complete PFT with Pre and Post Bronchodilator PFT Routine Pulmonary emphysema, unspecified emphysema type (HCC) 1 Occurrences starting 10/27/2024 until 10/27/2025 [facility] Comment on above: 1 Occurrences starting 10/27/2024 until 10/27/2025 End: 07-06-2019 Comprehensive metabolic 2000 panel Comprehensive Metabolic Panel Routine Type 1 diabetes mellitus with diabetic neuropathy (HCC) 1 Occurrences starting 07/05/2018 until 07/06/2019 [facility] Comment on above: 1 Occurrences starting 07/05/2018 until 07/06/2019 End: 11-11-2019 Comprehensive metabolic 2000 panel Comprehensive Metabolic Panel Routine Essential hypertension 1 Occurrences starting 11/11/2018 until 11/11/2019 [facility] Comment on above: 1 Occurrences starting 11/11/2018 until 11/11/2019 End: 07-17-2020 Comprehensive metabolic 2000 panel Comprehensive Metabolic Panel Lab Routine Type 1 diabetes mellitus with diabetic polyneuropathy (HCC) 1 Occurrences starting 07/17/2019 until 07/17/2020 [facility] Comment on above: 1 Occurrences starting 07/17/2019 until 07/17/2020 End: 11-16-2020 Comprehensive metabolic 2000 panel Comprehensive Metabolic Panel Lab Routine Type I diabetes mellitus with neurological manifestations, uncontrolled (HCC) 1 Occurrences starting 11/16/2019 until 11/16/2020 [facility] Comment on above: 1 Occurrences starting 11/16/2019 until 11/16/2020 End: 03-13-2020 Comprehensive metabolic 2000 panel Comprehensive Metabolic Panel Routine 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) 1 Occurrences starting 03/13/2019 until 03/13/2020 [facility] Comment on above: 1 Occurrences starting 03/13/2019 until 03/13/2020 End: 02-19-2022 Comprehensive metabolic 2000 panel - Serum or Plasma Comprehensive Metabolic Panel Lab Routine Type 1 diabetes mellitus with diabetic polyneuropathy (HCC) 1 Occurrences starting 02/18/2021 until 02/19/2022 [facility] Comment on above: 1 Occurrences starting 02/18/2021 until 02/19/2022 End: 02-14-2023 Comprehensive metabolic 2000 panel - Serum or Plasma Comprehensive Metabolic Panel Lab Routine Type 1 diabetes mellitus with diabetic neuropathy (HCC) 1 Occurrences starting 02/13/2022 until 02/14/2023 [facility] Comment on above: 1 Occurrences starting 02/13/2022 until 02/14/2023 End: 06-20-2023 Comprehensive metabolic 2000 panel - Serum or Plasma Comprehensive Metabolic Panel Lab Routine Type 1 diabetes mellitus with diabetic neuropathy (HCC) 1 Occurrences starting 06/19/2022 until 06/20/2023 [employer] Work Phone: Comment on above: 1 Occurrences starting 06/19/2022 until 06/20/2023 End: 02-18-2025 Comprehensive metabolic 2000 panel - Serum or Plasma Comprehensive Metabolic Panel Lab Routine Type 1 diabetes mellitus with diabetic neuropathy (HCC) 1 Occurrences starting 02/18/2024 until 02/18/2025 [facility] Work Phone: Comment on above: 1 Occurrences starting 02/18/2024 until 02/18/2025 End: 07-22-2025 Comprehensive metabolic 2000 panel - Serum or Plasma Comprehensive Metabolic Panel Lab Routine Type 1 diabetes mellitus with diabetic neuropathy (HCC) 1 Occurrences starting 07/21/2024 until 07/22/2025 [facility] Work Phone: Comment on above: 1 Occurrences starting 07/21/2024 until 07/22/2025 End: 11-14-2025 Comprehensive metabolic 2000 panel - Serum or Plasma Comprehensive Metabolic Panel Lab Routine Type 1 diabetes mellitus with diabetic neuropathy (HCC) 1 Occurrences starting 11/13/2024 until 11/14/2025 [facility] Work Phone: Comment on above: 1 Occurrences starting 11/13/2024 until 11/14/2025 End: 03-13-2026 Comprehensive metabolic 2000 panel - Serum or Plasma Comprehensive Metabolic Panel Lab Routine Type 1 diabetes mellitus with diabetic neuropathy (HCC) 1 Occurrences starting 03/12/2025 until 03/13/2026 [employer] Work Phone: Comment on above: 1 Occurrences starting 03/12/2025 until 03/13/2026 End: 02-28-2019 Comprehensive metabolic panel [AGGREGATE] Comprehensive Metabolic Panel Routine Type 1 diabetes mellitus with diabetic neuropathy (HCC) Essential hypertension 1 Occurrences starting 02/28/2018 until 02/28/2019 [facility] End: 10-30-2018 Comprehensive metabolic panel [AGGREGATE] Comprehensive Metabolic Panel Routine Type 1 diabetes mellitus with diabetic neuropathy (HCC) Essential hypertension Pure hypercholesterolemia 1 Occurrences starting 10/29/2017 until 10/30/2018 [facility] Work Phone: Creatinine [Mass/volume] in Serum or Plasma [facility] Creatinine [Mass/volume] in Serum or Plasma [facility] Creatinine [Mass/volume] in Serum or Plasma [facility] End: 11-26-[address] [facility] Work Phone: Comment on above: Once for 1 Occurrences starting 11/26/19 until 11/26/2023 Electrocardiogram, 12-lead PRN ACS symptoms Electrocardiogram, 12-lead PRN ACS symptoms ECG Routine As needed until discontinued starting 10/11/2023 [facility] Work Phone: Comment on above: As needed until discontinued starting Electrocardiogram, 12-lead PRN ACS symptoms Electrocardiogram, 12-lead PRN ACS symptoms ECG Routine As needed until discontinued starting 10/11/2023 [facility] Work Phone: Comment on above: As needed until discontinued starting Erythrocyte mean corpuscular volume determination [facility] Erythrocyte mean corpuscular volume determination [facility] Erythrocyte mean corpuscular volume determination [facility] End: 02-28-2019 External Lab Microalbumin/Creatinine External Lab Microalbumin/Creatinine Routine Type 1 diabetes mellitus with diabetic neuropathy (HCC) Essential hypertension 1 Occurrences starting 02/28/2018 until 02/28/2019 [facility] End: 11-11-2019 External Lab Microalbumin/Creatinine External Lab Microalbumin/Creatinine Routine Essential hypertension 1 Occurrences starting 11/11/2018 until 11/11/2019 [facility] Comment on above: 1 Occurrences starting 11/11/2018 until 11/11/2019 End: 02-19-2022 External Lab Microalbumin/Creatinine External Lab Microalbumin/Creatinine Lab Routine Type 1 diabetes mellitus with diabetic polyneuropathy (HCC) 1 Occurrences starting 02/18/2021 until 02/19/2022 [facility] Comment on above: 1 Occurrences starting 02/18/2021 until 02/19/2022 End: 02-14-2023 External Lab Microalbumin/Creatinine External Lab Microalbumin/Creatinine Lab Routine Type 1 diabetes mellitus with diabetic neuropathy (HCC) 1 Occurrences starting 02/13/2022 until 02/14/2023 [facility] Comment on above: 1 Occurrences starting 02/13/2022 until 02/14/2023 Glucose [Mass/volume ] in Serum or Plasma POCT GLUCOSE Point of Care Testing Routine 4x daily - AC and at bedtime until discontinued starting 10/11/2023 [facility] Work Phone: Comment on above: 4x daily - AC and at bedtime until disco ntinued starting 10/11/2023 End: 10-15-2023 Glucose [Mass/volume] in Serum or Plasma POCT GLUCOSE Point of Care Testing Routine 4 times daily before meals and at bedtime for 3 Days starting 10/12/2023 until 10/15/2023 [facility] Work Phone: Comment on above: 4 times daily before meals and at bedtim e for 3 Days starting 10/12/2023 until 10/15/2023 Glucose [Mass/volume ] in Serum or Plasma [facility] Glucose [Mass/volume ] in Serum or Plasma [facility] Glucose [Mass/volume ] in Serum or Plasma [facility] End: 02-28-2019 HbA1c Hemoglobin A1c Routine Type 1 diabetes mellitus with diabetic neuropathy (HCC) Essential hypertension 1 Occurrences starting 02/28/2018 until 02/28/2019 [facility] End: 10-30-2018 HbA1c Hemoglobin A1c Routine Type 1 diabetes mellitus with diabetic neuropathy (HCC) Essential hypertension Pure hypercholesterolemia 1 Occurrences starting 10/29/2017 until 10/30/2018 [facility] Work Phone: End: 07-17-2020 HbA1c (Bld) [Mass fraction] Hemoglobin A1c Lab Routine Type 1 diabetes mellitus with diabetic polyneuropathy (HCC) 1 Occurrences starting 07/17/2019 until 07/17/2020 [facility] Comment on above: 1 Occurrences starting 07/17/2019 until 07/17/2020 End: 11-16-2020 HbA1c (Bld) [Mass fraction] Hemoglobin A1c Lab Routine Type I diabetes mellitus with neurological manifestations, uncontrolled (HCC) 1 Occurrences starting 11/16/2019 until 11/16/2020 [facility] Comment on above: 1 Occurrences starting 11/16/2019 until 11/16/2020 End: 03-13-2020 HbA1c (Bld) [Mass fraction] Hemoglobin A1c Routine 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) 1 Occurrences starting 03/13/2019 until 03/13/2020 [facility] Comment on above: 1 Occurrences starting 03/13/2019 until 03/13/2020 Hematocrit [Volume Fraction] of Blood [facility] Hematocrit [Volume Fraction] of Blood [facility] Hematocrit [Volume Fraction] of [facility] Hemoglobin [Mass/volume] in Blood [facility] Hemoglobin [Mass/volume] in Blood [facility] Hemoglobin [Mass/volume] in Blood [facility] End: 02-19-2022 Hemoglobin A1c/Hemoglobin.total in Blood Hemoglobin A1c Lab Routine Type 1 diabetes mellitus with diabetic polyneuropathy (HCC) 1 Occurrences starting 02/18/2021 until 02/19/2022 [facility] Comment on above: 1 Occurrences starting 02/18/2021 until 02/19/2022 End: 02-14-2023 Hemoglobin A1c/Hemoglobin.total in Blood Hemoglobin A1c Lab Routine Type 1 diabetes mellitus with diabetic neuropathy (HCC) 1 Occurrences starting 02/13/2022 until 02/14/2023 [facility] Comment on above: 1 Occurrences starting 02/13/2022 until 02/14/2023 End: 06-20-2023 Hemoglobin A1c/Hemoglobin.total in Blood Hemoglobin A1c Lab Routine Type 1 diabetes mellitus with diabetic neuropathy (HCC) 1 Occurrences starting 06/19/2022 until 06/20/2023 [facility] Comment on above: 1 Occurrences starting 06/19/2022 until 06/20/2023 End: 02-18-2025 Hemoglobin A1c/Hemoglobin.total in Blood Hemoglobin A1c Lab Routine Type 1 diabetes mellitus with diabetic neuropathy (HCC) 1 Occurrences starting 02/18/2024 until 02/18/2025 [facility] Comment on above: 1 Occurrences starting 02/18/2024 until 02/18/2025 End: 07-22-2025 Hemoglobin A1c/Hemoglobin.total in Blood Hemoglobin A1c Lab Routine Type 1 diabetes mellitus with diabetic neuropathy (HCC) 1 Occurrences starting 07/21/2024 until 07/22/2025 [facility] Comment on above: 1 Occurrences starting 07/21/2024 until 07/22/2025 End: 11-14-2025 Hemoglobin A1c/Hemoglobin.total in Blood Hemoglobin A1c Lab Routine Type 1 diabetes mellitus with diabetic neuropathy (HCC) 1 Occurrences starting 11/13/2024 until 11/14/2025 [facility] Comment on above: 1 Occurrences starting 11/13/2024 until 11/14/2025 End: 03-13-2026 Hemoglobin A1c/Hemoglobin.total in Blood Hemoglobin A1c Lab Routine Type 1 diabetes mellitus with diabetic neuropathy (HCC) 1 Occurrences starting 03/12/2025 until 03/13/2026 [facility] Comment on above: 1 Occurrences starting 03/12/2025 until 03/13/2026 Hemoglobin A1c/Hemoglobin.total in Blood [facility] End: 07-06-2019 Hemoglobin A1c/Hemoglobin.total mass fraction (Bld) Hemoglobin A1c Routine Type 1 diabetes mellitus with diabetic neuropathy (HCC) 1 Occurrences starting 07/05/2018 until 07/06/2019 [facility] Comment on above: 1 Occurrences starting 07/05/2018 until 07/06/2019 End: 11-11-2019 Hemoglobin A1c/Hemoglobin.total mass fraction (Bld) Hemoglobin A1c Routine Type 1 diabetes mellitus with diabetic neuropathy (HCC) 1 Occurrences starting 11/11/2018 until 11/11/2019 [facility] Comment on above: 1 Occurrences starting 11/11/2018 until 11/11/2019 End: 06-18-2018 Hemoglobin A1c/Hemoglobin.total mass fraction (Bld) Hemoglobin A1c Routine Type 1 diabetes mellitus with diabetic neuropathy (HCC) 1 Occurrences starting 06/17/2017 until 06/18/2018 [facility] Work Phone: Comment on above: 1 Occurrences starting 06/17/2017 until 06/18/2018 Heparin unfractionat ed [Units/volume] in Platelet poor plasma by Chromogenic method [facility] Work Phone: Comment on above: As needed (Lab) for 1 Occurrences starti ng 11/26/2023 As needed (Lab) for 30 Occurrences starting 11/26/2023 End: 10-13-2023 Home O2 eval (desaturation screen) Home O2 eval (desaturation screen) Respiratory Care Routine Once for 1 Occurrences starting 10/13/2023 until 10/13/2023 [facility] Work Phone: Comment on above: Once for 1 Occurrences starting 10/13/20 until 10/13/[address] [facility] Legionella pneumophi la Ag [Presence] in Urine [facility] Leukocytes [#/volume ] in Blood [facility] Leukocytes [#/volume ] in Blood [facility] Leukocytes [#/volume ] in Blood [facility] End: 11-11-2019 Lipid 1996 panel Lipid Panel Routine Type 1 diabetes mellitus with diabetic neuropathy (HCC) 1 Occurrences starting 11/11/2018 until 11/11/2019 [facility] Comment on above: 1 Occurrences starting 11/11/2018 until 11/11/2019 End: 07-17-2020 Lipid 1996 panel Lipid Panel Lab Routine Pure hypercholesterolemia 1 Occurrences starting 07/17/2019 until 07/17/2020 [facility] Comment on above: 1 Occurrences starting 07/17/2019 until 07/17/2020 End: 02-19-2022 Lipid 1996 panel - Serum or Plasma Lipid Panel Lab Routine Type 1 diabetes mellitus with diabetic polyneuropathy (HCC) 1 Occurrences starting 02/18/2021 until 02/19/2022 [facility] Comment on above: 1 Occurrences starting 02/18/2021 until 02/19/2022 End: 02-18-2025 Lipid 1996 panel - Serum or Plasma Lipid Panel Lab Routine Type 1 diabetes mellitus with diabetic neuropathy (HCC) 1 Occurrences starting 02/18/2024 until 02/18/2025 [facility] Comment on above: 1 Occurrences starting 02/18/2024 until 02/18/2025 End: 07-22-2025 Lipid 1996 panel - Serum or Plasma Lipid Panel Lab Routine Type 1 diabetes mellitus with diabetic neuropathy (HCC) 1 Occurrences starting 07/21/2024 until 07/22/2025 [facility] Comment on above: 1 Occurrences starting 07/21/2024 until 07/22/2025 End: 11-14-2025 Lipid 1996 panel - Serum or Plasma Lipid Panel Lab Routine Type 1 diabetes mellitus with diabetic neuropathy (HCC) Pure hypercholesterolemia 1 Occurrences starting 11/13/2024 until 11/14/2025 [facility] Comment on above: 1 Occurrences starting 11/13/2024 until 11/14/2025 End: 03-13-2026 Lipid 1996 panel - Serum or Plasma Lipid Panel Lab Routine Type 1 diabetes mellitus with diabetic neuropathy (HCC) 1 Occurrences starting 03/12/2025 until 03/13/2026 [facility] Comment on above: 1 Occurrences starting 03/12/2025 until 03/13/2026 End: 02-28-2019 Lipid panel Lipid Panel Routine Type 1 diabetes mellitus with diabetic neuropathy (HCC) 1 Occurrences starting 02/28/2018 until 02/28/2019 [facility] Low density lipoprot ein cholesterol measurement [facility] Mean corpuscular hemoglobin concentration determination [facility] Mean corpuscular hemoglobin concentration determination [facility] Mean corpuscular hemoglobin concentration determination [facility] Mean corpuscular hemoglobin determination [facility] Mean corpuscular hemoglobin determination [facility] Mean corpuscular hemoglobin determination [facility] Measurement of renal function [facility] Measurement of renal function [facility] Measurement of renal function [facility] Natriuretic peptide. B prohormone N-Terminal [Mass/volume] in Serum or Plasma [facility] Neutrophil count [facility] Neutrophil count [facility] Neutrophil count [facility] Neutrophil percent differential count [facility] Neutrophil percent differential count [facility] Neutrophil percent differential count [facility] Noninvasive Ventilation Noninvas frank Ventilation Respiratory Care Routine For RT frequency use only for continuous procedures with task-based reminders at 8a and 8p until discontinued starting 11/26/2023 [facility] Work Phone: Comment on above: For RT frequency use only for continuous procedures with task-based reminders at 8a and 8p until discontinued starting 11/26/2023 Patient Education [facility] Work Phone: Patient referral [facility] Work Phone: Platelets [#/volume] in Blood [facility] Platelets [#/volume] in Blood [facility] Platelets [#/volume] in Blood [facility] Potassium measurement [facility] Potassium measurement [facility] Potassium measurement [facility] Procalcitonin [Mass/volume] in Serum or Plasma by Immunoassay [facility] End: 03-12-2020 Prostate specific Ag [Mass/Vol] PSA, Screen Routine Prostate cancer screening 1 Occurrences starting 03/13/2019 until 03/12/2020 [facility] Comment on above: 1 Occurrences starting 03/13/2019 until 03/12/2020 End: 02-13-2023 Prostate specific Ag [Mass/volume] in Serum or Plasma PSA, Screen Lab Routine Prostate cancer screening 1 Occurrences starting 02/13/2022 until 02/13/2023 [facility] Comment on above: 1 Occurrences starting 02/13/2022 until 02/13/2023 Prothrombin time (PT) Protime-IN R Lab STAT As needed (Lab) for 1 Occurrences starting 11/26/2023 [facility] Work Phone: Comment on above: As needed (Lab) for 1 Occurrences starti ng 11/26/2023 End: 10-29-2018 PSA, Screen PSA, Screen Routine Prostate cancer screening 1 Occurrences starting 10/29/2017 until 10/29/2018 [facility] Work Phone: Red blood cell count [facility] Red blood cell count [facility] Red blood cell count [facility] Red cell distributio n width determination [facility] Red cell distributio n width determination [facility] Red cell distributio n width determination [facility] End: 10-11-2023 Respiratory care eval and treat Respiratory care eval and treat Respiratory Care Routine Once for 1 Occurrences starting 10/11/2023 until 10/11/2023 [facility] Work Phone: Comment on above: Once for 1 Occurrences starting 10/11/20 23 until 10/11/2023 Respiratory pathogen s DNA and RNA panel - Respiratory specimen by ALICE with probe detection [facility] Serum chloride measurement [facility] Serum chloride measurement [facility] Serum chloride measurement [facility] Sodium measurement [facility] Sodium measurement [facility] Sodium measurement [facility] End: 10-21-2024 SPECT Heart perfusion NM Myocardial Perfusion Multiple SPECT Imaging Routine Congestive heart failure, unspecified HF chronicity, unspecified heart failure type (HCC) 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 1 Occurrences starting 10/21/2023 until 10/21/2024 [facility] Work Phone: Comment on above: 1 Occurrences starting 10/21/2023 until 10/21/2024 End: 11-11-2019 T4 free mass conc T4, Free Routine Type 1 diabetes mellitus with diabetic neuropathy (HCC) 1 Occurrences starting 11/11/2018 until 11/11/2019 [facility] Comment on above: 1 Occurrences starting 11/11/2018 until 11/11/2019 End: 02-18-2025 Thyrotropin [Units/volume] in Serum or Plasma TSH Lab Routine Type 1 diabetes mellitus with diabetic neuropathy (HCC) 1 Occurrences starting 02/18/2024 until 02/18/2025 [facility] Comment on above: 1 Occurrences starting 02/18/2024 until 02/18/2025 End: 07-22-2025 Thyrotropin [Units/volume] in Serum or Plasma TSH Lab Routine Type 1 diabetes mellitus with diabetic neuropathy (HCC) 1 Occurrences starting 07/21/2024 until 07/22/2025 [facility] Comment on above: 1 Occurrences starting 07/21/2024 until 07/22/2025 End: 11-14-2025 Thyrotropin [Units/volume] in Serum or Plasma TSH Lab Routine Type 1 diabetes mellitus with diabetic neuropathy (HCC) 1 Occurrences starting 11/13/2024 until 11/14/2025 [facility] Comment on above: 1 Occurrences starting 11/13/2024 until 11/14/2025 Thyrotropin [Units/volume] in Serum or Plasma TSH with Reflex Free T4 Lab Routine 02/12/2025 10:25 AM EDT [facility] Work Phone: End: 03-13-2026 Thyrotropin [Units/volume] in Serum or Plasma TSH Lab Routine Type 1 diabetes mellitus with diabetic neuropathy (HCC) 1 Occurrences starting 03/12/2025 until 03/13/2026 [facility] Comment on above: 1 Occurrences starting 03/12/2025 until 03/13/2026 End: 11-11-2019 Thyrotropin Qn TSH Routine Type 1 diabetes mellitus with diabetic neuropathy (HCC) 1 Occurrences starting 11/11/2018 until 11/11/2019 [facility] Comment on above: 1 Occurrences starting 11/11/2018 until 11/11/2019 End: 02-28-2019 Thyroxine (T4) free T4, Free Routine Type 1 diabetes mellitus with diabetic neuropathy (HCC) 1 Occurrences starting 02/28/2018 until 02/28/2019 [facility] End: 02-18-2025 Thyroxine (T4) free [Mass/volume] in Serum or Plasma T4, Free Lab Routine Type 1 diabetes mellitus with diabetic neuropathy (HCC) 1 Occurrences starting 02/18/2024 until 02/18/2025 [facility] Comment on above: 1 Occurrences starting 02/18/2024 until 02/18/2025 End: 07-22-2025 Thyroxine (T4) free [Mass/volume] in Serum or Plasma T4, Free Lab Routine Type 1 diabetes mellitus with diabetic neuropathy (HCC) 1 Occurrences starting 07/21/2024 until 07/22/2025 [facility] Comment on above: 1 Occurrences starting 07/21/2024 until 07/22/2025 End: 01-14-2026 Thyroxine (T4) free [Mass/volume] in Serum or Plasma T4, Free Lab Routine Type 1 diabetes mellitus with diabetic neuropathy (HCC) 1 Occurrences starting 11/13/2024 until 11/14/2025 [facility] Comment on above: 1 Occurrences starting 11/13/2024 until 11/14/2025 End: 03-13-2026 Thyroxine (T4) free [Mass/volume] in Serum or Plasma T4, Free Lab Routine Type 1 diabetes mellitus with diabetic neuropathy (HCC) 1 Occurrences starting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 Charges/Coding Visit Charges Inpatient E&M: 33007 Init Hosp L3 04/19/25 0644 <Electronically signed by Nancy Rizzo DO> Cosigner Signature (if applicable): CC: Dr. Ryley Jeter MD; Dr. Nancy Rizzo DO~ Signed [facility] Work Phone: [phone]) 460-603606-19-2025 Discharge summary Author Arnulfo Argeliacassandra [facility] Note Date/Time April 19, 2025 3:48 am [facility] Medical Records Department [address] [place] [address] Emergency Department Summary 04/19/25 MR#: [id number] Acct: [id number] Name: ENOC ARMANDO Rep #:[id number] : 1945 79 From: Arnulfo Jose DO [...] but denies any formal diagnosis of COPD [facility] Medical History Non-STEMI (non-ST elevated myocardial infarction) [...] AdvReac Other Verified 04/03/25 00:16 (Glucocorticoids) (steroids) Zphcioo-TSB-VuE Reductase AdvReac Other Verified 04/03/25 00:16 Inhibitor (Yeumetd-Xpc-Lmz Reductase Inhibitor) Family History Mother COPD (chronic [...] 82.3 H Lymph % (Auto) 10.0 L [place] % (Auto) 5.7 Eos % (Auto) 1.0 [...] Magnesium 2.3 [place] [address] H Procalcitonin 0.10 POC Glucose 437 H Radiography Diagnostic Testing: Clinical Impression(s) from Imaging Studies Chest X-Ray 04/19/25 01:00 IMPRESSION: Increased mild bilateral pleural effusions. Increased passive atelectatic airspace disease of the lower lobes. Increased pulmonary venous congestion and interstitial edema. Enlarged cardiac silhouette. Reading Location: [place] [address] Chest x-ray as interpreted by the emergency [...] Chronic anemia Disposition Disposition: Acute Care [facility] What to do if you have Problems For any increased pain, shortness of breath, bleeding, nausea or vomiting, chestpain, or any unexpected problems, contact your Primary Care Provider. Call [facility] ([phone]) or report to the closest Emergency Room. Call 911 if necessary. 04/19/25 0348 <Electronically signed by Arnulfo Jose DO> Cosigner Signature (if applicable): CC: Dr. Ryley Jeter MD ~ Signed [facility] Work Phone: 1([phone]) 718-508206-19-2025 Radiology Diagnostic study [facility]06-10-2025 Discharge summary [facility] Medical Records Department [address] [place] [address] Instructions for Home/Discharge Instructions 04/10/25 1527 MR#: [id number] Acct: [id number] Name: ENOC ARMANDO Rep #:[id number] : 1945 79 From: Grace Arnold MD [...] Smooth Luis MD ~ Signed [facility]06-10-2025 [facility] Progress note Author Denisha Thompson [facility] Note Date/Time April 10, 2025 12:2 7pm [facility] Medical Records Department [address] [place] [address] Progress Note - Nephrology 04/10/25 1226 MR#: [id number] Acct: [id number] Name: ENOC ARMANDO Rep #:[id number] : 1945 79 From: Denisha tirado MD PCP: Dr. Ryley Jeter MD Status:ADM IN Location: [place] [address] Subjective Subjective no new events Objective Data [...] 82.6 H, Lymph % (Auto) 9.4 L, [place] % (Auto) 7.0, Eos % (Auto) 0.1, [...] stage III (followed by Dr. Albert in [place]), COPD, diabetes mellitus admitted to the hospital [...] (if applicable): CC: ~ Signed [facility] Work Phone: 1(308) 478-649106-10-2025 Progress note [facility] Medical Records Department [address] [place] [address] Progress Note - Nephrology 04/10/25 1226 MR#: [id number] Acct: [id number] Name: ENOC ARMANDO Rep #:[id number] : 1945 79 From: Denisha tirado MD PCP: Dr. Ryley Jeter MD Status:ADM IN Location: [place] [address] Subjective Subjective no new events Objective Data [...] 82.6 H, Lymph % (Auto) 9.4 L, [place] % (Auto) 7.0, Eos % (Auto) 0.1, [...] stage III (followed by Dr. Albert in [place]), COPD, diabetes mellitus admitted to the hospital [...] (if applicable): CC: ~ Signed [facility]06-09-2025 Progress note Author [facility] Note Date/Time April 09, 2025 6:52p m [facility] Medical Records Department [address] [place] [address] Progress Note 04/09/25 1501 MR#: [id number] Acct: [id number] Name: ENOC ARMANDO Rep #:[id number] : 1945 79 From: Grace Arnold MD PCP: Dr. Ryley Jeter MD Status:ADM IN Location: [place] [address] Subjective Subjective Patient seen and examined in the presence of his nurse. He had no complaints andhad an uneventful night. Review of systems is otherwise negative. He is requesting to go home if he is not having dialysis. However, the windows admin wants to monitor his labs overnight. He [...] 77.6 H, Lymph % (Auto) 14.1 L, [place] % (Auto) 7.4, Eos % (Auto) 0.1, [...] Cardiology was consulted and records requested from [place] showed he had cardiac cath at [place] 2 years ago and had 2 blockages [...] prophylaxis: heparin Charges/Coding Visit Charges Inpatient E&M: 48145 Subs Hosp L2 04/09/25 1852 <Electronically signed by Grace Arnold MD> Grace Arnold MD Cosigner Signature (if applicable): CC: ~ Signed [facility] Work Phone: 1([phone]) 565-746306-09-2025 Progress note [facility] Medical Records Department [address] [place] [address] Progress Note 04/09/25 1501 MR#: [id number] Acct: [id number] Name: ENOC ARMANDO Rep #:[id number] : 1945 79 From: Grace Arnold MD PCP: Dr. Ryley Jeter MD Status:ADM IN Location: [facility] [id number]- 1 Subjective Subjective Patient seen and examined in the presence of his nurse. He had no complaints andhad an uneventful night. Review of systems is otherwise negative. He is requesting to go home if he is not having dialysis. However, the windows admin wants to monitor his labs overnight. He [...] RDWStd Deviation 45.6 H, RDW Coeff of Humiara 14.0, Plt Count 191, MPV 12.0, Immature Gran % (Auto) 0.700,Neut % (Auto) 77.6 H, Lymph % (Auto) 14.1 L, [place] % (Auto) 7.4, Eos % (Auto) 0.1, [...] Cardiology was consulted and records requested from [place] showed he had cardiac cath at [place] 2 years ago and had 2 blockages [...] prophylaxis: heparin Charges/Coding Visit Charges Inpatient E&M: 18808 Subs Hosp L2 04/09/25 1852 Grace Arnold MD Cosigner Signature (if applicable): CC: ~ Signed [facility]06-09-2025 Progress note Author Denisha Thompson [facility] Note Date/Time April 09, 2025 10:39 am [facility] Medical Records Department [address] [place] [address] Progress Note - Nephrology 04/09/25 1037 MR#: [id number] Acct: [id number] Name: ENOC ARMANDO Rep #:[id number] : 1945 79 From: Denisha tirado MD PCP: Dr. Ryley Jeter MD Status:ADM IN Location: [place] [address] Subjective Subjective No new complaints today. Urine [...] 77.6 H, Lymph % (Auto) 14.1 L, [place] % (Auto) 7.4, Eos % (Auto) 0.1, [...] stage III (followed by Dr. Albert in [place]), COPD, diabetes mellitus admitted to the hospital [...] about leaving today. Will notify hospitalist. 04/09/25 103 <Electronically signed by Denisha Thompson MD> Cosigner Signature (if applicable): CC: ~ Signed [facility] Work Phone: [phone]) 737-225706-09-2025 Progress note [facility] Medical Records Department [address] [place] [address] Progress Note - Nephrology 04/09/25 1037 MR#: [id number] Acct: [id number] Name: ENOC ARMANDO Rep #:[id number] : 1945 79 From: Denisha tirado MD PCP: Dr. Ryley Jeter MD Status:ADM IN Location: [place] [address] Subjective Subjective No new complaints today. Urine [...] 77.6 H, Lymph % (Auto) 14.1 L, [place] % (Auto) 7.4, Eos % (Auto) 0.1, [...] stage III (followed by Dr. Albert in [place]), COPD, diabetes mellitus admitted to the hospital [...] about leaving today. Will notify hospitalist. 04/09/25 1031 Cosigner Signature (if applicable): CC: ~ Signed [facility]06-09-2025 Progress note Author Dyana Hwang [facility] Note Date/Time April 08, 2025 10:57 pm [facility] Medical Records Department [address] [place] [address] Progress Note - Hospitalist 04/08/25 1267 MR#: [id number] Acct: [id number] Name: TRENOC E Rep #:[id number] : 1945 79 From: Dyana Hwang MD PCP: Dr. Ryley Jeter MD Status:ADM IN Location: [place] [address] Hospitalist Note BS elevated, given ISS, repeat check remains elevated, will give an additional 15 u now and recheck 1-2 hours. 04/08/252256 <Electronically signed by Dyana Hwang MD> Cosigner Signature (if applicable): CC: ~ Signed [facility] Work Phone: 1(857) 951-425206-08-2025 Progress note [facility] Medical Records Department [address] [place] [address] Progress Note - Hospitalist 04/08/252256 MR#: [id number] Acct: [id number] Name: ENOC ARMANDO Rep #:[id number] : 1945 79 From: Dyana Hwang MD PCP: Dr. Ryley Jeter MD Status:ADM IN Location: [place] [address] Hospitalist Note BS elevated, given ISS, repeat check remains elevated, will give an additional 15 u now and recheck1-2 hours. 04/08/252256 Cosigner Signature (if applicable): CC: ~ Signed [facility]06-08-2025 Progress note Author Jose Moore [facility] Note Date/Time April 08, 2025 10:37 am [facility] Medical Records Department [address] [place] [address] Progress Note - Hospitalist 04/08/25 1026 MR#: [id number] Acct: [id number] Name: ENOC ARMANDO Rep #:[id number] : 1945 79 From: Jose lui MD PCP: Dr. Ryley Jeter MD Status:ADM IN Location: [place] [address] Subjective Subjective Feels better today than he [...] 88.0 H, Lymph % (Auto) 7.3 L, [place] % (Auto) 4.2, Eos % (Auto) 0.0, [...] a heart cath 2 years ago at [place] with 2 blockages that could not be [...] DVT: SCDs Charges/Coding Visit Charges Inpatient E&M: 41269 Subs Hosp L2 04/08/25 1037 <Electronically signed by Jose Moore MD> Cosigner Signature (if applicable): CC: ~ Signed [facility] Work Phone: 1(345) 937-706506-08-2025 Progress note [facility] Medical Records Department [address] [facility] [place] [address] Progress Note - Hospitalist 04/08/25 1026 MR#: [id number] Acct: [id number] Name: ENOC ARMANDO Rep #:[id number] : 1945 79 From: Jose lui MD PCP: Dr. Ryley Jeter MD Status:ADM IN Location: [place] [address] Subjective Subjective Feels better today than he [...] 88.0 H, Lymph % (Auto) 7.3 L, [place] % (Auto) 4.2, Eos % (Auto) 0.0, [...] a heart cath 2 years ago at [place] with 2 blockages that could not be [...] DVT: SCDs Charges/Coding Visit Charges Inpatient E&M: 44223 Subs Hosp L2 04/08/25 1037 Cosigner Signature (if applicable): CC: ~ Signed [facility]06-07-2025 Progress note Author Nate Forbes [facility] Note Date/Time April 07, 2025 5:18p m [facility] Medical Records Department [address] [place] [address] Progress Note - Architectural Renderer 04/07/25 1717 MR#: [id number] Acct: [id number] Name: ENOC ARMANDO Rep #:[id number] : 1945 79 From: Nate Forbes MD PCP: Dr. Ryley Jeter MD Status:ADM IN Location: [place] [address] Objective Data Objective Data Vital Signs: Vital [...] mls/hr 04/03/25 05:18 04/06/25 14:45 IV Infused .[id number] PRN Infusion Saline Flush Sodium Chloride 250 mls @ 15 mls/hr 04/03/25 05:18 IV .[id number] PRN Additional IVPB Infusion Dextrose 250 mls [...] 0.4 Mg Capsule PO 0.4 mg TuTa@1730 COUNTS INCLUDE [facility] BEDS AT [facility] Administration Lab / Micro Data 04/07/25 [...] 79.0 H, Lymph % (Auto) 12.6 L, [place] % (Auto) 8.0, Eos % (Auto) 0.1, [...] per nephrology yesterday. Cont recommendations as per pulmonary/forestry supervisor note yesterday. We will monitor peripherally over the weekend, but please call us any time if questions or if clinical worsening. Nate Forbes MD 04/07/25 1718 <Electronically signed by Nate Forbes MD> Cosigner Signature (if applicable): CC: ~ Signed [facility] Work Phone: 1(404) 186-183206-07-2025 Progress note [facility] Medical Records Department [address] [place] [address] Progress Note - Architectural Renderer 04/07/251716 MR#: [id number] Acct: [id number] Name: ENOC ARMANDO Rep #:[id number] : 1945 79 From: Nate Forbes MD PCP: Dr. Ryley Jeter MD Status:ADM IN Location: [place] [address] Objective Data Objective Data Vital Signs: Vital [...] mls/hr 04/03/25 05:18 04/06/25 14:45 IV Infused .[id number] PRN Infusion Saline Flush Sodium Chloride 250 mls @ 15 mls/hr 04/03/25 05:18 IV .[id number] PRN Additional IVPB Infusion Dextrose 250 mls [...] Hcl 0.4 Mg Capsule PO 0.4 mg Ayla@9365 DIDI Administration Lab / Micro Data 04/07/25 [...] 79.0 H, Lymph % (Auto) 12.6 L, [place] % (Auto) 8.0, Eos % (Auto) 0.1, [...] per nephrology yesterday. Cont recommendations as per pulmonary/forestry supervisor note yesterday. We will monitor peripherally over the weekend, but please call us any time if questions or if clinical worsening. Nate Forbes MD 04/07/25 0198 Cosigner Signature (if applicable): CC: ~ Signed [facility]06-07-2025 Progress note Author Jose Moore [facility] Note Date/Time April 07, 2025 3:15p m [facility] Medical Records Department [address] [place] [address] Progress Note - Hospitalist 04/07/25 2730 MR#: [id number] Acct: [id number] Name: ENOC ARMANDO Rep #:[id number] : 1945 79 From: Jose lui MD PCP: Dr. Ryley Jeter MD Status:ADM IN Location: [place] [address] Subjective Subjective Doing well, no issues overnight. [...] 79.0 H, Lymph % (Auto) 12.6 L, [place] % (Auto) 8.0, Eos % (Auto) 0.1, [...] a cardiac cath 2 years ago at [facility] and was told he had 2 blockages which were not amenable to revascularization. Records requested from [facility]. Further management as per cardiology. 04/06/2025: Breath [...] as above. * Further records requested from [facility] as above * cardiology on board 04/06/2025: [place] to be due to demand ischemia though [...] DVT: SCDs Charges/Coding Visit Charges Inpatient E&M: 85487 Subs Hosp L2 04/07/25 1515 <Electronically signed by Jose Moore MD> Cosigner Signature (if applicable): CC: ~ Signed [facility] Work Phone: 1(382) 186-447106-07-2025 Progress note [facility] Medical Records Department [address] [place] [address] Progress Note - Hospitalist 04/07/25 1450 MR#: [id number] Acct: [id number] Name: ENOC ARMANDO Rep #:[id number] : 1945 79 From: Jose lui MD PCP: Dr. Ryley Jeter MD Status:ADM IN Location: [place] [address] Subjective Subjective Doing well, no issues overnight. [...] 79.0 H, Lymph % (Auto) 12.6 L, [place] % (Auto) 8.0, Eos % (Auto) 0.1, [...] a cardiac cath 2 years ago at [facility] and was told he had 2 blockages which were not amenable to revascularization. Records requested from [facility]. Further management as per cardiology. 04/06/2025: Breath [...] as above. * Further records requested from [facility] as above * cardiology on board 04/06/2025: [place] to be due to demand ischemia though [...] DVT: SCDs Charges/Coding Visit Charges Inpatient E&M: 64622 Subs Hosp L2 04/07/25 0156 Cosigner Signature (if applicable): CC: ~ Signed [facility]06-06-2025 Progress note Author Jose Moore [facility] Note Date/Time April 06, 2025 6:25p m [facility] Medical Records Department [address] [place] [address] Progress Note - Hospitalist 04/06/258 MR#: [id number] Acct: [id number] Name: ENOC ARMANDO Rep #:[id number] : 1945 79 From: Jose lui MD PCP: Dr. Ryley Jeter MD Status:ADM IN Location: [place] [address] Subjective Subjective Doing well, no issues overnight [...] (Auto) 83.3 H, Lymph % (Auto) 9.1L, [place] % (Auto) 7.0, Eos % (Auto) 0.0, [...] Lung findings are grossly unchanged. Reading Location: [facility] Rhythm Strip Rhythm Strip: Sinus Rhythm Rate: [...] a cardiac cath 2 years ago at [facility] and was told he had 2 blockages which were not amenable to revascularization. Records requested from [facility]. Further management as per cardiology. 04/06/2025: Breath sounds are improving and he is maintaining nasal cannula after dialysis #Elevated cardiac enzymes: * initial troponin was 58, and only peaked at 76. 2D echo as above. * Further records requested from [facility] as above * cardiology on board 04/06/2025: [place] to be due to demand ischemia though [...] DVT: Heparin Charges/Coding Visit Charges Inpatient E&M: 43296 Subs Hosp L2 04/06/25 1825 <Electronically signed by Jose Moore MD> Cosigner Signature (if applicable): CC: ~ Signed [facility] Work Phone: 1(512) 164-445706-06-2025 Progress note [facility] Medical Records Department [address] [place] [address] Progress Note - Hospitalist 04/06/25 1818 MR#: [id number] Acct: [id number] Name: ENOC ARMANDO Rep #:[id number] : 1945 79 From: Jose lui MD PCP: Dr. Ryley Jeter MD Status:ADM IN Location: [place] [address] Subjective Subjective Doing well, no issues overnight [...] (Auto) 83.3 H, Lymph % (Auto) 9.1L, [place] % (Auto) 7.0, Eos % (Auto) 0.0, [...] Lung findings are grossly unchanged. Reading Location: [facility] Rhythm Strip Rhythm Strip: Sinus Rhythm Rate: [...] a cardiac cath 2 years ago at [facility] and was told he had 2 blockages which were not amenable to revascularization. Records requested from [facility]. Further management as per cardiology. 04/06/2025: Breath sounds are improving and he is maintaining nasal cannula after dialysis #Elevated cardiac enzymes: * initial troponin was 58, and only peaked at 76. 2D echo as above. * Further records requested from [facility] as above * cardiology on board 04/06/2025: [place] to be due to demand ischemia though [...] DVT: Heparin Charges/Coding Visit Charges Inpatient E&M: 78715 Subs Hosp L2 04/06/25 1825 Cosigner Signature (if applicable): CC: ~ Signed [facility]06-06-2025 Progress note Author Bipin Gonzalez [facility] Note Date/Time April 06, 2025 4:18p m [facility] Medical Records Department [address] [place] [address] Progress Note - Nephrology 04/06/25 1117 MR#: [id number] Acct: [id number] Name: ENOC ARMANDO Rep #:[id number] : 1945 79 From: Bipin arreola BUSINESS STRATEGIST-C PCP: Dr. Ryley Jeter MD Status:ADM IN Location: [address] 1 Documented by User: AURY Davison [...] Sl. Cloudy, Urine pH 5.0, Ur Specific [place] 1.020, Urine Protein 100 H, Urine Glucose [...] (Auto) 83.3 H, Lymph % (Auto) 9.1L, [place] % (Auto) 7.0, Eos % (Auto) 0.0, [...] Lung findings are grossly unchanged. Reading Location: [facility] Rhythm Strip Rhythm Strip: Sinus Rhythm Rate: [...] stage III (followed by Dr. Albert in [place]), COPD, diabetes mellitus admitted to the hospital [...] stage III (followed by Dr. Albert in [place]), COPD, diabetes mellitus admitted to the hospital [...] and plan reviewed with Dr. Thompson. jr [employer]. BAKARI is typically short lived. hopefully will recover soon. HD today. will reevaluate tomorrow 04/06/25 1124 <Electronically signed by Bipin JEFFERS> Cosigner Signature (if applicable): 04/06/25 1618 <Electronically signed by Denisha Thompson MD> CC: ~ Signed [facility] Work Phone: 1(727) 142-393006-06-2025 Progress note [facility] Medical Records Department [address] [place] [address] Progress Note - Nephrology 04/06/25 1117 MR#: [id number] Acct: [id number] Name: ENOC ARMANDO Rep #:[id number] : 1945 79 From: Bipin JEFFERS PCP: Dr. Ryley Jeter MD Status:ADM IN Location: [place] [address] Documented by User: AURY Davison 04/06/25 11:24 [...] Sl. Cloudy, Urine pH 5.0, Ur Specific [place] 1.020, Urine Protein 100 H, Urine Glucose [...] (Auto) 83.3 H, Lymph % (Auto) 9.1L, [place] % (Auto) 7.0, Eos % (Auto) 0.0, [...] Lung findings are grossly unchanged. Reading Location: [facility] Rhythm Strip Rhythm Strip: Sinus Rhythm Rate: [...] stage III (followed by Dr. Albert in [place]), COPD, diabetes mellitus admitted to the hospital [...] stage III (followed by Dr. Albert in [place]), COPD, diabetes mellitus admitted to the hospital [...] and plan reviewed with Dr. Thompson. jr [employer] CONSULTANT. BAKARI is typically short lived. hopefully will recover soon. HD today. will reevaluate tomorrow 04/06/25 1124 Cosigner Signature (if applicable): 04/06/25 1618 CC: ~ Signed [facility]06-06-2025 Progress note Author Smooth Luis [facility] Note Date/Time April 06, 2025 11:24 am [facility] Medical Records Department [address] [place] [address] Progress Note - Surgery 04/06/25 1123 MR#: [id number] Acct: [id number] Name: ENOC ARMANDO Rep #:[id number] : 1945 79 From: Smooth Luis MD PCP: Dr. Ryley Jeter MD Status:ADM IN Location: [place] [address] Subjective Subjective Patient seen on rounds this [...] Sl. Cloudy, Urine pH 5.0, Ur Specific [place] 1.020, Urine Protein 100 H, Urine Glucose [...] (Auto) 83.3 H, Lymph % (Auto) 9.1L, [place] % (Auto) 7.0, Eos % (Auto) 0.0, [...] Lung findings are grossly unchanged. Reading Location: [facility] Rhythm Strip Rhythm Strip: Sinus Rhythm Rate: [...] (if applicable): CC: ~ Signed [facility] Work Phone: 1(841) 892-523706-06-2025 Progress note Author Landry Fagan [facility] Note Date/Time April 06, 2025 9:42a [facility] Medical Records Department [address] [place] [address] Progress Note - Architectural Renderer 04/06/25 0938 MR#: [id number] Acct: [id number] Name: ENOC ARMANDO Rep #:[id number] : 1945 79 From: Landry Fagan DO PCP: Dr. Ryley Jeter MD Status:ADM IN Location: [facility] [id number]- 1 Assessment & Plan Assessment/Plan (1) Acute [...] without intubation This note was generated with [employer] dictation software. It may contain incorrectwords, spelling, [...] Sl. Cloudy, Urine pH 5.0, Ur Specific [place] 1.020, Urine Protein 100 H, Urine Glucose [...] (Auto) 83.3 H, Lymph % (Auto) 9.1L, [place] % (Auto) 7.0, Eos % (Auto) 0.0, [...] Lung findings are grossly unchanged. Reading Location: [facility] Rhythm Strip Rhythm Strip: Sinus Rhythm Rate: [...] affect normal Charges/Coding Visit Charges Inpatient E&M: 23463 Subs Hosp L2 04/06/25 0942 <Electronically signed by Landry Fagan DO> Cosigner Signature (if applicable): CC: ~ Signed [facility] Work Phone: 1(581) 792-848206-06-2025 Progress note [facility] Medical Records Department [address] [place] [address] Progress Note - Surgery 04/06/25 1123 MR#: [id number] Acct: [id number] Name: ENOC ARMANDO Rep #:[id number] : 1945 79 From: Smooth Luis MD PCP: Dr. Ryley Jeter MD Status:ADM IN Location: [place] [address] Subjective Subjective Patient seen on rounds this [...] Sl. Cloudy, Urine pH 5.0, Ur Specific [place] 1.020, Urine Protein 100 H, Urine Glucose [...] (Auto) 83.3 H, Lymph % (Auto) 9.1L, [place] % (Auto) 7.0, Eos % (Auto) 0.0, [...] Lung findings are grossly unchanged. Reading Location: [facility] Rhythm Strip Rhythm Strip: Sinus Rhythm Rate: [...] (if applicable): CC: ~ Signed [facility]06-06-2025 Progress note [facility] Medical Records Department [address] [place] [address] Progress Note - Architectural Renderer 04/06/25 0938 MR#: [id number] Acct: [id number] Name: ENOC ARMANDO Rep #:[id number] : 1945 79 From: Landry Fagan DO PCP: Dr. Ryley Jeter MD Status:ADM IN Location: [facility] [id number]- 1 Assessment & Plan Assessment/Plan (1) Acute [...] without intubation This note was generated with [employer] dictation software. It may contain incorrectwords, spelling, [...] Sl. Cloudy, Urine pH 5.0, Ur Specific [place] 1.020, Urine Protein 100 H, Urine Glucose [...] (Auto) 83.3 H, Lymph % (Auto) 9.1L, [place] % (Auto) 7.0, Eos % (Auto) 0.0, [...] Lung findings are grossly unchanged. Reading Location: [facility] Rhythm Strip Rhythm Strip: Sinus Rhythm Rate: [...] affect normal Charges/Coding Visit Charges Inpatient E&M: 61770 Subs Hosp L2 04/06/25 0942 Cosigner Signature (if applicable): CC: ~ Signed [facility]06-05-2025 Consult note Author Smooth Luis [facility] Note Date/Time April 05, 2025 6:10p m [facility] Medical Records Department [address] [place] [address] Consultation - Surgical 04/05/25 1806 MR#: [id number] Acct: [id number] Name: ENOC ARMANDO Rep #:[id number] : 1945 79 From: Smooth Luis MD PCP: Dr. Ryley Jeter MD Status:ADM IN Location: [place] [address] Assessment & Plan Assessment/Plan (1) CKD (chronic kidney disease), stage III: QUALIFIERS: Chronic kidney disease stage 3 subtype: stage 3b (GFR 30-44) Qualified Code(s): N18.32 - Chronic kidney disease, stage 3b PLAN: Plan Patient is an 79-year-old male with worsening renal function. Numerical Control Lathe Operator is recommending temporary dialysis. Dialysis catheter was [...] to the emergency department at [facility] several days ago with history [...] obtained to insert the temporary dialysis catheter. [facility] Medical History Chronic anemia Tobacco use COPD [...] AdvReac Other Verified 04/03/25 00:16 (Glucocorticoids) (steroids) Tdgvswr-SMH-LkZ Reductase AdvReac Other Verified 04/03/25 00:16 Inhibitor (Sobqkea-Mck-Tqv Reductase Inhibitor) Family History Mother COPD (chronic [...] 85.5 H, Lymph % (Auto) 5.7 L, [place] % (Auto) 7.7, Eos % (Auto) 0.0, [...] Sl. Cloudy, Urine pH 5.0, Ur Specific [place] 1.020, Urine Protein 100 H, Urine Glucose [...] to prior. Correlate with PSA. Reading Location: [id number] Charges/Coding Visit Charges Inpatient E&M: 12683 Init Hosp L3 04/05/25 1810 <Electronically signed by Smooth Luis MD> Cosigner Signature (if applicable): CC: Dr. Ryley Jeter MD~ Signed [facility] Work Phone: 1(536) 750-157706-05-2025 Radiology Diagnostic study note [facility] [address] [place] [address] CXR for Line Placement MR#: [id number] Acct: [id number] Name: ENOC ARMANDO Rep #: [id number] : 1945 M 79 From: Chely Batista MD PCP: Dr. Ryley Jeter MD Status: ADM IN Study:CXR for Line Placement Date of Exam: 04/05/25 Exam# [id number] Ordering Dr: St dany Luis MD PROCEDURE: CXR FOR LINE PLACEMENT 04/05/2025 REASON FOR EXAM: TEMP HD CATH INSERTION ON RIGHT TECHNIQUE: Single frontal view of the chest COMPARISON: 04/03/2025 RAD/CXR for Line Placement IMPRESSION: Interval insertion of right IJ line with tip at SVC, likely in appropriate position. Lung findings are grossly unchanged. Reading Location: [facility] CC: Dr. Ryley Jeter MD; Dr. Smooth Luis MD ~ Fabrication Engineer: Signed [facility]06-05-[address] [facility] Note Date/Time April 05, 2025 5:19p m [facility] Medical Records Department [address] [place] [address] Progress Note 04/05/25 1212 MR#: [id number] Acct: [id number] Name: ENOC ARMANDO Rep #:[id number] : 1945 79 From: Grace Arnold MD PCP: Dr. Ryley Jeter MD Status:ADM IN Location: [place] [address] Subjective Subjective Patient seen and examined. He [...] 85.5 H, Lymph % (Auto) 5.7 L, [place] % (Auto) 7.7, Eos % (Auto) 0.0, [...] to prior. Correlate with PSA. Reading Location: [id number] Rhythm Strip Rhythm Strip: Sinus Rhythm Rate: [...] a cardiac cath 2 years ago at [facility] and was told he had 2 blockages which were not amenable to revascularization. Records requested from [facility]. Further management as per cardiology. * #Elevated cardiac enzymes: * initial troponin was 58, and only peaked at 76. 2D echo as above. * Further records requested from [facility] as above * cardiology on board * [...] heparin sq. Charges/Coding Visit Charges Inpatient E&M: 71169 Subs Hosp L3 04/05/25 1719 <Electronically signed by Grace Arnold MD> Grace Arnold MD Cosigner Signature (if applicable): CC: ~ Signed [facility] Work Phone: 1(138) 199-238906-05-2025 Procedure note [facility] Medical Records Department [address] [place] [address] Operative Report 04/05/25 1810 MR#: [id number] Acct: [id number] Name: ENOC ARMANDO Rep #:[id number] : 1945 79 From: Smooth Luis MD PCP: Dr. Ryley Jeter MD Status:ADM IN Location: [place] [address] Problems Associated Problem List Diagnoses (1) CKD (chronic kidney disease), stage III: Procedures Cardiovascular CF Procedures 33xxx-39xxx: 31966 Insert tunneled cv cath Operative Report (Standard) Operative Information Date of Procedure: 04/05/25 Pre-Operative Diagnosis: Renal failure Post-Operative Diagnosis: Renal failure Surgery/Procedure Performed: Right internal jugular temporary dialysis catheter insertion with ultrasound reimbursement representative: No Type of Anesthesia: Local Procedure Start Time: 17:00 Procedure Stop Time: 17:20 Select all DRAINS/GRAFTS/IMPLANTS that apply: Prosthetic device Prosthetic device details: 12 Malay temporary dialysis catheter Estimated Blood Loss: 15 [...] Dr. Nina Lee MD~ Signed [facility]06-05-2025 Consult note [facility] Medical Records Department [address] [place] [address] Consultation - Surgical 04/05/25 1806 MR#: [id number] Acct: [id number] Name: ENOC ARMANDO Rep #:[id number] : 1945 79 From: Smooth Luis MD PCP: Dr. Ryley Jeter MD Status:ADM IN Location: [place] [address] Assessment & Plan Assessment/Plan (1) CKD (chronic kidney disease), stage III: QUALIFIERS: Chronic kidney disease stage 3 subtype: stage 3b (GFR 30-44) Qualified Code(s): N18.32 - Chronic kidney disease, stage 3b PLAN: Plan Patient is an 79-year-old male with worsening renal function. Numerical Control Lathe Operator is recommending temporary dialysis. Dialysis catheter was [...] to the emergency department at [facility] several days ago with history [...] obtained to insert the temporary dialysis catheter. [facility] Medical History Chronic anemia Tobacco use COPD [...] AdvReac Other Verified 04/03/25 00:16 (Glucocorticoids) (steroids) Ibxqjzx-NVK-XyL Reductase AdvReac Other Verified 04/03/25 00:16 Inhibitor (Yobsiva-Uxn-Bqm Reductase Inhibitor) Family History Mother COPD (chronic [...] 85.5 H, Lymph % (Auto) 5.7 L, [place] % (Auto) 7.7, Eos % (Auto) 0.0, [...] Sl. Cloudy, Urine pH 5.0, Ur Specific [place] 1.020, Urine Protein 100 H, Urine Glucose [...] to prior. Correlate with PSA. Reading Location: [id number] Charges/Coding Visit Charges Inpatient E&M: 34066 Init Hosp 04/05/25 1810 Cosigner Signature (if applicable): CC: Dr. Ryley Jeter MD~ Signed [facility]06-05-2025 Progress note Author Denisha Thompson [facility] Note Date/Time April 05, 2025 3:20p m [facility] Medical Records Department [address] [place] [address] Progress Note - Nephrology 04/05/25 1518 MR#: [id number] Acct: [id number] Name: ENOC ARMANDO Ariela Rep #:[id number] : 1945 79 From: Denisha tirado MD PCP: Dr. Ryley Jeter MD Status:ADM IN Location: [place] [address] Subjective Subjective he is on bipap Objective [...] 85.5 H, Lymph % (Auto) 5.7 L, [place] % (Auto) 7.7, Eos % (Auto) 0.0, [...] Sl. Cloudy, Urine pH 5.0, Ur Specific [place] 1.020, Urine Protein 100 H, Urine Glucose [...] to prior. Correlate with PSA. Reading Location: [facility] Rhythm Strip Rhythm Strip: Sinus Rhythm [...] stage III (followed by Dr. Albert in [place]), COPD, diabetes mellitus admitted to the hospital [...] only about 200 cc of urine. presumably AMDONNA due to contrast nephropathy vs ATN start low dose bicarbonate drip due to lack of urine output and worsening renal failure needs temporary dialysis 04/05/25 1520 <Electronically signed by Denisha Thompson MD> Cosigner Signature (if applicable): CC: ~ Signed [facility] Work Phone: 1(328) 225-101006-05-2025 Progress note [facility] Medical Records Department [address] [place] [address] Progress Note 04/05/25 1212 MR#: [id number] Acct: [id number] Name: ENOC ARMANDO Rep #:[id number] : 1945 79 From: Grace Arnold MD PCP: Dr. Ryley Jeter MD Status:ADM IN Location: [place] [address] Subjective Subjective Patient seen and examined. He [...] 85.5 H, Lymph % (Auto) 5.7 L, [place] % (Auto) 7.7, Eos % (Auto) 0.0, [...] to prior. Correlate with PSA. Reading Location: [facility] Rhythm Strip Rhythm Strip: Sinus Rhythm [...] a cardiac cath 2 years ago at [facility] and was told he had 2 blockages which were not amenable to revascularization. Records requested from [facility]. Further management as per cardiology. * #Elevated cardiac enzymes: * initial troponin was 58, and only peaked at 76. 2D echo as above. * Further records requested from [facility] as above * cardiology on board * [...] heparin sq. Charges/Coding Visit Charges Inpatient E&M: 77347 [facility] [[email or web address] Hosp 04/05/25 5826 Grace Arnold MD Cosigner Signature (if applicable): CC: ~ Signed [facility]06-05-2025 Progress note Author Barbie Martin [facility] Note Date/Time April 05, 2025 3:10p m [facility] Medical Records Department [address] [place] [address] Progress Note - Cardiology 04/05/25 1459 MR#: [id number] Acct: [id number] Name: ENOC ARMANDO Rep #:[id number] : 1945 79 From: Barbie gibson MD PCP: Dr. Ryley Jeter MD Status:ADM IN Location: [place] [address] Subjective Subjective Patient denies any chest pain. [...] 85.5 H, Lymph % (Auto) 5.7 L, [place] % (Auto) 7.7, Eos % (Auto) 0.0, [...] Sl. Cloudy, Urine pH 5.0, Ur Specific [place] 1.020, Urine Protein 100 H, Urine Glucose [...] 85.5 H, Lymph % (Auto) 5.7 L, [place] % (Auto) 7.7, Eos % (Auto) 0.0, [...] Sl. Cloudy, Urine pH 5.0, Ur Specific [place] 1.020, Urine Protein 100 H, Urine Glucose [...] to prior. Correlate with PSA. Reading Location: [id number] Physical Exam Const alert HEENT normocephalic Eyes [...] catheterization within the last 2 years at [facility]. He also had 2 blockages that were [...] be willing to see him in the [place] [facility] in 7to 10 days after discharge. Charges/Coding Visit Charges Inpatient E&M: 98719 Subs Hosp L2 04/05/25 1510 <Electronically signed by Barbie Martin MD> Cosigner Signature (if applicable): CC: ~ Signed [facility] Work Phone: 1(447) 860-291406-05-2025 Progress note [facility] Medical Records Department [address] [place] [address] Progress Note - Nephrology 04/05/25 1518 MR#: [id number] Acct: [id number] Name: ENOC ARMANDO Rep #:[id number] : 1945 79 From: Denisha tirado MD PCP: Dr. Ryley Jeter MD Status:[facility]M [facility] Subjective Subjective he is on bipap [...] 85.5 H, Lymph % (Auto) 5.7 L, [place] % (Auto) 7.7, Eos % (Auto) 0.0, [...] Sl. Cloudy, Urine pH 5.0, Ur Specific [place] 1.020, Urine Protein 100 H, Urine Glucose [...] to prior. Correlate with PSA. Reading Location: [id number] Rhythm Strip Rhythm Strip: Sinus Rhythm Rate: [...] stage III (followed by Dr. Albert in [place]), COPD, diabetes mellitus admitted to the hospital [...] (if applicable): CC: ~ Signed [facility]06-05-2025 Progress note [facility] Medical Records Department [address] [place] [address] Progress Note - Cardiology 04/05/25 0057 MR#: [id number] Acct: [id number] Name: ENOC ARMANDO Rep #:[id number] : 1945 79 From: Barbie gibson MD PCP: Dr. Ryley Jeter MD Status:ADM IN Location: [place] [address] Subjective Subjective Patient denies any chest pain. [...] 85.5 H, Lymph % (Auto) 5.7 L, [place] % (Auto) 7.7, Eos % (Auto) 0.0, [...] Sl. Cloudy, Urine pH 5.0, Ur Specific [place] 1.020, Urine Protein 100 H, Urine Glucose [...] 85.5 H, Lymph % (Auto) 5.7 L, [place] % (Auto) 7.7, Eos % (Auto) 0.0, [...] Sl. Cloudy, Urine pH 5.0, Ur Specific [place] 1.020, Urine Protein 100 H, Urine Glucose [...] to prior. Correlate with PSA. Reading Location: [facility] Physical Exam Const alert HEENT normocephalic Eyes [...] catheterization within the last 2 years at [facility].He also had 2 blockages that were not [...] be willing to see him in the [place] [facility] in 7to 10 days after discharge. Charges/Coding Visit Charges Inpatient E&M: 83466 Subs Hosp L2 04/05/25 4665 Cosigner Signature (if applicable): CC: ~ Signed [facility]06-05-2025 Consult note Author Bipin Gonzalez [facility] Note Date/Time April 05, 2025 10:03 am [facility] Medical Records Department [address] [place] [address] Consultation - Nephrology 04/04/25 1518 MR#: [id number] Acct: [id number] Name: ENOC ARMANDO Rep #:[id number] : 1945 79 From: Bipin arreola NP-C PCP: Dr. Ryley Jeter MD Status:ADM IN Location: [place] [address] Assessment & Plan Assessment/Plan (1) MADONNA (acute kidney injury): (2) CKD (chronic kidney disease), stage III: QUALIFIERS: Chronic kidney disease stage 3 subtype: stage 3b (GFR 30-44) Qualified Code(s): N18.32 - Chronic kidney disease, stage 3b (3) Acute hypoxic respiratory failure: PLAN: Plan This is an 79-year-old male with past medical history significant for hypertension, CKD stage III (followed by Dr. Albert in [place]), COPD, diabetes mellitus admitted to the hospital [...] has been following with Dr. Ayanna Albert, [facility] in [place] for history of CKD. Baseline creatinine has been around 1.8 mg/dL range. Patient denies any new medications before hospitalization. Denies any recent nausea, vomiting or diarrhea. Denies any urinary habitus changes. No NSAIDs. [facility] Medical History (Updated 04/04/25 @ 15:23 by [...] AdvReac Other Verified 04/03/25 00:16 (Glucocorticoids) (steroids) Avovkxk-ILQ-LzV Reductase AdvReac Other Verified 04/03/25 00:16 Inhibitor (Dmltxuo-Xcl-Mui Reductase Inhibitor) Family History Mother COPD (chronic [...] (Auto) 90.4 H, Lymph % (Auto) 4.9L, [place] % (Auto) 4.0, Eos % (Auto) 0.0, [...] Dr. Ryley Jeter MD~ Signed [facility] Work Phone: 1([phone]) 900-861606-05-2025 Progress note Author Landry Fagan [facility] Note Date/Time April 05, 2025 9:30a m [facility] Medical Records Department [address] [place] [address] Progress Note - Architectural Renderer 04/05/25 0819 MR#: [id number] Acct: [id number] Name: ENOC ARMANDO Ariela Rep #:[id number] : 1945 79 From: Landry Fagan DO PCP: Dr. Ryley Jeter MD Status:ADM IN Location: [place] [address]- Assessment & Plan Assessment/Plan (1) Acute hypoxic [...] without intubation This note was generated with [employer] dictation software. It may contain incorrectwords, spelling, [...] 85.5 H, Lymph % (Auto) 5.7 L, [place] % (Auto) 7.7, Eos % (Auto) 0.0, [...] to prior. Correlate with PSA. Reading Location: [facility] Rhythm Strip Rhythm Strip: Sinus Rhythm Rate: [...] affect normal Charges/Coding Visit Charges Inpatient E&M: 41352 Subs Hosp L2 04/05/25 0930 <Electronically signed by Landry Fagan DO> Cosigner Signature (if applicable): CC: ~ Signed [facility] Work Phone: 1(526) 832-607106-05-2025 Consult note [facility] Medical Records Department [address] [place] [address] Consultation - Nephrology 04/04/25 1518 MR#: [id number] Acct: [id number] Name: ENOC ARMANDO Rep #:[id number] : 1945 79 From: Bipin arreola BUSINESS STRATEGIST-C PCP: Dr. Ryley Jeter MD Status:ADM IN Location: [place] [address] Assessment & Plan Assessment/Plan (1) MADONNA (acute kidney injury): (2) CKD (chronic kidney disease), stage III: QUALIFIERS: Chronic kidney disease stage 3 subtype: stage 3b (GFR 30-44) Qualified Code(s): N18.32 - Chronic kidney disease, stage 3b (3) Acute hypoxic respiratory failure: PLAN: Plan This is an 79-year-old male with past medical history significant for hypertension, CKD stage III (followed by Dr. Albert in [place]), COPD, diabetes mellitus admitted to the hospital [...] has been following with Dr. Ayanna Albert, [facility] in [place] for history of CKD. Baseline creatinine has been around 1.8 mg/dL range. Patient denies any new medications before hospitalization. Denies any recent nausea, vomiting or diarrhea. Denies any urinary habitus changes. No NSAIDs. [facility] Medical History (Updated 04/04/25 @ 15:23 by [...] AdvReac Other Verified 04/03/25 00:16 (Glucocorticoids) (steroids) Ovfqnwz-ALM-SoE Reductase AdvReac Other Verified 04/03/25 00:16 Inhibitor (Hifhkyg-Jwj-Lzj Reductase Inhibitor) Family History Mother COPD (chronic [...] (Auto) 90.4 H, Lymph % (Auto) 4.9L, [place] % (Auto) 4.0, Eos % (Auto) 0.0, [...] Dr. Ryley Jeter MD~ Signed [facility]06-05-2025 Progress note [facility] Medical Records Department [address] [place] [address] Progress Note - Architectural Renderer 04/05/25 08 MR#: [id number] Acct: [id number] Name: ENOC ARMANDO Rep #:[id number] : 1945 79 From: Landry Fagan DO PCP: Dr. Ryley Jeter MD Status:ADM IN Location: [facility] CLI389- 1 Assessment & Plan Assessment/Plan (1) Acute [...] without intubation This note was generated with [employer] dictation software. It may contain incorrectwords, spelling, [...] 85.5 H, Lymph % (Auto) 5.7 L, [place] % (Auto) 7.7, Eos % (Auto) 0.0, [...] to prior. Correlate with PSA. Reading Location: [facility] Rhythm Strip Rhythm Strip: Sinus Rhythm Rate: [...] affect normal Charges/Coding Visit Charges Inpatient E&M: 39500 Subs Hosp L2 04/05/25 0930 Cosigner Signature (if applicable): CC: ~ Signed [facility]06-05-2025 Radiology Diagnostic study note [facility] [address] [place] [address] Kidney and Bladder MR#: [id number] Acct: [id number] Name: ENOC ARMANDO Rep #: [id number] : 1945 M 79 From: Demetria Mahoney MD PCP: Dr. Ryley Jeter MD Status: ADM IN Study:Kidney and Bladder Date of Exam: 0 04/04/25 Exam# [id number] Ordering Dr: Kesha Arnold MD PROCEDURE: KIDNEY [...] to prior. Correlate with PSA. Reading Location: [facility] CC: Dr. Ryley Jeter MD; Dr. Grace Arnold MD ~ Fabrication Engineer: Signed [facility]06-04-2025 Progress note Author Grace Arnold [facility] Note Date/Time April 04, 2025 5:42p m [facility] Medical Records Department [address] [place] [address] Progress Note 04/04/25 1121 MR#: [id number] Acct: [id number] Name: ENOC ARMANDO Rep #:[id number] : 1945 79 From: Grace Arnold MD [...] (Auto) 90.4 H, Lymph % (Auto) 4.9L, [place] % (Auto) 4.0, Eos % (Auto) 0.0, [...] a cardiac cath 2 years ago at [facility] and was told he had 2 blockages which were not amenable to revascularization. Records requested from [facility]. Further management as per cardiology. * #Elevated cardiac enzymes: * initial troponin was 58, and only peaked at 76. 2D echo as above. * Further records requested from [facility] as above * cardiology on board * [...] heparin sq. Charges/Coding Visit Charges Inpatient E&M: 76168 Subs Hosp L3 04/04/25 1742 <Electronically signed by Grace Arnold MD> Grace Arnold MD Cosigner Signature (if applicable): CC: ~ Signed [facility] Work Phone: 1([phone]) 188-694406-04-2025 Progress note [facility] Medical Records Department [address] [place] [address] Progress Note 04/04/25 1121 MR#: [id number] Acct: [id number] Name: ENOC ARMANDO Rep #:[id number] : 1945 79 From: Grace Arnold MD [...] (Auto) 90.4 H, Lymph % (Auto) 4.9L, [place] % (Auto) 4.0, Eos % (Auto) 0.0, [...] a cardiac cath 2 years ago at [facility] and was toldhe had 2 blockages which were not amenable to revascularization. Records requested from [facility]. Further management as per cardiology. * #Elevated cardiac enzymes: * initial troponin was 58, and only peaked at 76. 2D echo as above. * Further records requested from [facility] as above * cardiology on board * [...] heparin sq. Charges/Coding Visit Charges Inpatient E&M: 17107 Subs Hosp L3 04/04/25 1741 Grace Arnold MD Cosigner Signature (if applicable): CC: ~ Signed [facility]06-04-2025 Progress note Author Donte Nolen [facility] Note Date/Time April 04, 2025 2:56p m [facility] Medical Records Department [address] [place] [address] Progress Note - Architectural Renderer 04/04/25 1257 MR#: [id number] Acct: [id number] Name: ENOC ARMANDO Rep #:[id number] : 1945 79 From: Donte Silver PCP: [...] mls @ 15 mls/hr 04/03/25 05:18 IV .B07F10T PRN Saline Flush Sodium Chloride 250 mls @ 15 mls/hr 04/03/25 05:18 IV .T73E67A PRN Additional IVPB Infusion Dextrose 250 mls @ 999 mls/hr 04/03/25 13:17 Dextrose 10%-Water IV .Q16M PRN Hypoglycemic Protocol Protocol Dextrose/Sodium Chloride 1,000 mls @ 60 mls/hr 04/03/25 22:35 04/03/25 23:16 IV 60 mls/hr .H86A84Z DIDI Administration Insulin Glargine 15 unit 04/04/25 [...] Tablet 20 Meq PO 20 meq BIDCM IDDI Administration Prednisone 40 mg 04/05/25 08:00 Prednisone [...] Hcl 0.4 Mg Capsule PO 0.4 mg Ayla@2480 DIDI Administration Lab / Micro Data 04/04/25 [...] (Auto) 90.4 H, Lymph % (Auto) 4.9L, [place] % (Auto) 4.0, Eos % (Auto) 0.0, [...] this encounter was done via Telemedicine 04/04/25 0603 <Electronically signed by Donte Nolen MD> Cosigner Signature (if applicable): CC: ~ Signed [facility] Work Phone: 1(759) 387-602806-04-2025 Progress note [facility] Medical Records Department [address] [place] [address] Progress Note - Architectural Renderer 04/04/25 1257 MR#: [id number] Acct: [id number] Name: ENOC ARMANDO Rep #:[id number] : 1945 79 From: Donte Silver PCP: [...] mls @ 15 mls/hr 04/03/25 05:18 IV .B39O07P PRN Saline Flush Sodium Chloride 250 mls @ 15 mls/hr 04/03/25 05:18 IV .V56N39F PRN Additional IVPB Infusion Dextrose 250 mls @ 999 mls/hr 04/03/25 13:17 Dextrose 10%-Water IV .Q16M PRN Hypoglycemic Protocol Protocol Dextrose/Sodium Chloride 1,000 mls @ 60 mls/hr 04/03/25 22:35 04/03/25 23:16 IV 60 mls/hr .N94U09V DIDI Administration Insulin Glargine 15 unit 04/04/25 [...] 25 Mg Tablet PO 25 mg DAILY COUNTS INCLUDE 234 BEDS AT THE [facility] Administration Protocol Nitroglycerin 0.4 mg 04/03/25 05:17 Nitroglycerin (Inpatient Use) 0.4 Mg Tab.Subl SL Q5M PRN CARDIAC/CHEST PAIN Ondansetron HCl 4 mg 04/03/25 05:17 Ondansetron 4 Mg/2 Ml Vial IV Q8H PRN PRN NAUSEA/VOMITING Potassium Chloride 20 meq 04/03/25 08:00 04/04/25 10:50 Potassium Chloride Oral Tablet 20 Meq PO 20 meq BIDCM COUNTS INCLUDE 234 BEDS AT THE [facility] Administration Prednisone 40 mg 04/05/25 08:00 Prednisone 20 Mg Tablet PO 04/10/25 08:01 BREAKFAST COUNTS INCLUDE 234 BEDS AT THE [facility] Prochlorperazine Edisylate 5 mg 04/03/25 05:17 [...] Hcl 0.4 Mg Capsule [facility].4 [facility]S AT [facility] Administration Lab / Micro Data 04/04/25 [...] (Auto) 90.4 H, Lymph % (Auto) 4.9L, [place] % (Auto) 4.0, Eos % (Auto) 0.0, [...] (if applicable): CC: ~ Signed [facility]06-04-2025 Progress note Author Breezy Campbell [facility] Note Date/Time April 04, 2025 10:35 am [facility] Medical Records Department [address] [place] [address] Progress Note - Cardiology 04/04/25 1028 MR#: [id number] Acct: [id number] Name: ENOC ARMANDO Rep #:[id number] : 1945 79 From: Breezy Campbell MD PCP: Dr. Ryley Jeter MD Status:ADM IN Location: ICU ICU04-1 Subjective Subjective Has not been able to obtain records from [facility] for his catheterization within the past 2 [...] (Auto) 90.4 H, Lymph % (Auto) 4.9L, [place] % (Auto) 4.0, Eos % (Auto) 0.0, [...] 90.4 H, Lymph % (Auto) 4.9 L, [place] % (Auto) 4.0, Eos % (Auto) 0.0, [...] catheterization within the last 2 years at [facility]. He also had 2 blockages that were [...] be willing to see him in the [place] [facility] in 7to 10 days after discharge. Charges/Coding Visit Charges Inpatient E&M: 97048 Subs Hosp L3 04/04/25 1035 <Electronically signed by Breezy Campbell MD> Cosigner Signature (if applicable): CC: ~ Signed [facility] Work Phone: 1(250) 774-992206-04-2025 Progress note [facility] Medical Records Department [address] [place] [address] Progress Note - Cardiology 04/04/25 1028 MR#: [id number] Acct: [id number] Name: ENOC ARMANDO Rep #:[id number] : 1945 79 From: Breezy Campbell MD PCP: Dr. Ryley Jeter MD Status:ADM IN Location: ICU ICU04-1 Subjective Subjective Has not been able to obtain records from [facility] for his catheterization within the past 2 [...] (Auto) 90.4 H, Lymph % (Auto) 4.9L, [place] % (Auto) 4.0, Eos % (Auto) 0.0, [...] 90.4 H, Lymph % (Auto) 4.9 L, [place] %(Auto) 4.0, Eos % (Auto) 0.0, Baso [...] catheterization within the last 2 years at [facility]. He also had 2 blockages that were [...] be willing to see him in the [place] [facility] in 7to 10 days after discharge. Charges/Coding Visit Charges Inpatient E&M: 03562 Subs Hosp L3 04/04/25 1035 Cosigner Signature (if applicable): CC: ~ Signed [facility]06-03-20[address] [facility] Note Date/Time April 03, 2025 5:08p m [facility] Medical Records Department [address] [place] [address] Progress Note 04/03/25 1352 MR#: [id number] Acct: [id number] Name: ENOC ARMANDO Rep #:[id number] : 1945 79 From: Grace Arnold MD [...] 76.4 H, Lymph % (Auto) 13.5 L, [place] % (Auto) 7.0, Eos % (Auto) 1.9, [...] (Auto) 94.8 H, Lymph % (Auto) 3.3L, [place] % (Auto) 1.1, Eos % (Auto) 0.0, [...] 32 mins Charges/Coding Visit Charges Inpatient E&M: 44261 PROLNG IP/OBS E/M EA 15 MIN 04/03/25 [...] applicable): Date cc: ~* Signed [facility] Work Phone: 1(644) 450-739206-03-2025 Consult note Author Breezy Campbell [facility] Note Date/Time April 03, 2025 4:52p m [facility] Medical Records Department [address] [place] [address] Consultation - Cardiology 04/03/25 1630 MR#: [id number] Acct: [id number] Name: ENOC ARMANDO Rep #:[id number] : 1945 79 From: Breezy Campbell MD [...] left heart catheterization a year ago in [place] we will try to obtain those records [...] I will try to obtain records from [facility] to see if this is new but [...] Will try to obtain cardiovascular records from [facility] from last year. 2. Continue current medical therapy. 3. Will follow along with you as the patient recovers from his pulmonary insufficiency we may need to alter his cardiovascular medical therapy. 4. The patient does not routinely see a securities trader by his report. 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 The patient specifically denies any chest pain. He denies any lower extremity edema. The patient's complaint was really dyspnea on exertion. He is now beingtreated with IV antibiotics and ventilatory support. The patient is DNR CCA. [facility] Medical History (Updated 04/03/25 @ 16:49 by [...] AdvReac Other Verified 04/03/25 00:16 (Glucocorticoids) (steroids) Qpjheqi-TTQ-QjX Reductase AdvReac Other Verified 04/03/25 00:16 Inhibitor (Jrdcaty-Dlt-Keq Reductase Inhibitor) Family History Mother COPD (chronic [...] 20% Risk Charges/Coding Visit Charges Inpatient E&M: 41799 Init Hosp L3 Objective Data Vital Signs: [...] 76.4 H, Lymph % (Auto) 13.5 L, [place] % (Auto) 7.0, Eos % (Auto) 1.9, [...] (Auto) 94.8 H, Lymph % (Auto) 3.3L, [place] % (Auto) 1.1, Eos % (Auto) 0.0, [...] 76.4 H, Lymph % (Auto) 13.5 L, [place] % (Auto) 7.0, Eos % (Auto) 1.9, Baso % (Auto) 0.6, Absolute Neuts (auto) 12.0 H, Nucleated RBC % 0, PT 13.4, INR 1.0,APTT 37.3 H, D-Dimer Quant (PE/DVT) 1.86 H*, Sodium 139, Potassium 4.4, Cibnvxdl286, Carbon Dioxide 20.8 L, Anion Gap 14, [...] 94.8 H, Lymph % (Auto) 3.3 L, [place] % (Auto) 1.1, Eos % (Auto) 0.0, [...] congestion and/or pneumonia. Reading [facility] Chest CTA 04/03/25 02:34 IMPRESSION: Mild bilateral [...] Dr. Ryley Jeter MD~ Signed [facility] Work Phone: 1(501) 343-528906-03-2025 Progress note [facility] Medical Records Department [address] [place] [address] Progress Note 04/03/25 1352 MR#: [id number] Acct: [id number] Name: ENOC ARMANDO Rep #:[id number] : 1945 79 From: Grace Arnold MD [...] 76.4 H, Lymph % (Auto) 13.5 L, [place] % (Auto) 7.0, Eos % (Auto) 1.9, Baso % (Auto) 0.6, Absolute Neuts (auto) 12.0 H, Absolute Lymphs (auto) 2.12, Nucleated RBC % 0, PT 13.4, INR 1.0,APTT 37.3 H, D-Dimer Quant (PE/DVT) 1.86 H*, Sodium 139, Potassium 4.4,Chloride 104, Carbon Mjbrcli33.8 L, Anion Gap 14, BUN 42 H, [...] (Auto) 94.8 H, Lymph % (Auto) 3.3L, [place] % (Auto) 1.1, Eos % (Auto) 0.0, [...] pulmonary embolus or aortic dissection. Reading Location: [place] [address] Echocardiogram 04/03/25 05:55 Interpretation Summary Mid to [...] 32 mins Charges/Coding Visit Charges Inpatient E&M: 85093 PROLNG IP/OBS E/M EA 15 MIN 04/03/25 [...] applicable): Date cc: ~* Signed [facility]06-03-2025 Consult note [facility] Medical Records Department [address] [place] [address] Consultation - Cardiology 04/03/25 1630 MR#: [id number] Acct: [id number] Name: ENOC ARMANDO Rep #:[id number] : 1945 79 From: Breezy Campbell MD [...] left heart catheterization a year ago in [place] we will try to obtain those records [...] I will try to obtain records from [facility] to see if this is new but [...] Will try to obtain cardiovascular records from [facility] from last year. 2. Continue current medical therapy. 3. Will follow along with you as the patient recovers from his pulmonary insufficiency we may need to alter his cardiovascular medical therapy. 4. The patient does not routinely see a securities trader by his report. We will behappy to follow him up in the office following discharge if he desires. HPI Consult Data Date of Consult: 04/03/25 HPI Narrative Reason for Consultation: Acute respiratory failure with LV dysfunction. HPI Narrative: ENOC ARMNADO, is a 79 M who presents with [...] last year he underwentleft heart catheterization in [place] and that revealed 2 blocked arteries that had natural bypasses build up around him and he was treated medically. The patient specifically denies any chest pain. He denies any lower extremity edema. The patient's complaint was really dyspnea on exertion. He is now beingtreated with IV antibiotics and ventilatorysupport. The patient is DNR CCA. [facility] Medical History (Updated 04/03/25 @ 16:49 by [...] AdvReac Other Verified 04/03/25 00:16 (Glucocorticoids) (steroids) Kupnamt-GUD-OzQ Reductase AdvReac Other Verified 04/03/25 00:16 Inhibitor (Hzeyimi-Lyw-Bsw Reductase Inhibitor) Family History Mother COPD (chronic [...] 20% Risk Charges/Coding Visit Charges Inpatient E&M: 77967 Init Hosp L3 Objective Data Vital Signs: [...] 76.4 H, Lymph % (Auto) 13.5 L, [place] % (Auto) 7.0, Eos % (Auto) 1.9, Baso % (Auto) 0.6, Absolute Neuts (auto) 12.0 H, Absolute Lymphs (auto) 2.12, Nucleated RBC % 0, PT 13.4, INR 1.0,APTT 37.3 H, D-Dimer Quant (PE/DVT) 1.86 H*, Sodium 139, Potassium 4.4,Chloride 104, Carbon Yktqvng40.8 L, Anion Gap 14, BUN 42 H, [...] (Auto) 94.8 H, Lymph % (Auto) 3.3L, [place] % (Auto) 1.1, Eos % (Auto) 0.0, [...] 76.4 H, Lymph % (Auto) 13.5 L, [place] % (Auto) 7.0, Eos % (Auto) 1.9, Baso % (Auto) 0.6, Absolute Neuts (auto) 12.0 H, Nucleated RBC %0, PT 13.4, INR 1.0,APTT 37.3 H, D-Dimer Quant (PE/DVT) 1.86 H*, Sodium 139, Potassium 4.4, Drokzzhw120, Carbon Dioxide 20.8 L, Anion Gap 14, [...] 94.8 H, Lymph % (Auto) 3.3 L, [place] %(Auto) 1.1, Eos % (Auto) 0.0, Baso [...] possibly multifocal congestion and/or pneumonia. Reading Location: [place] [address] Chest CTA 04/03/25 02:34 IMPRESSION: Mild bilateral pleural effusions. Passive atelectatic airspace disease/airspace consolidations of the lower lobes. Bilateral chronic perihilar interstitial pulmonary thickening with associated mild multifocal ground-glass densities, possibly superimposed pneumonia. Mild diffuse spondylosis. No CT evidence of pulmonary embolus or aortic dissection. Reading Location: [place] [address] Echocardiogram 04/03/25 05:55 Interpretation Summary Mid to [...] Dr. Ryley Jeter MD~ Signed [facility]-03-2025 Consult note Author Landry Fagan [facility] Note Date/Time April 03, 2025 9:04a m [facility] Medical Records Department [address] [place] [address] Consultation - Architectural Renderer 04/03/25 0850 MR#: [id number] Acct: [id number] Name: ENOC ARMANDO Rep #:[id number] : 1945 79 From: Landry Fagan DO [...] without intubation This note was generated with [employer] dictation software. It may contain incorrectwords, spelling, [...] he has never been evaluated by a appointment scheduler or completed pulmonary function studies. Therefore, it [...] to be a DNR CCA without intubation. [facility] Medical History Chronic anemia Tobacco use COPD [...] AdvReac Other Verified 04/03/25 00:16 (Glucocorticoids) (steroids) Zdlhlis-QGT-NdO Reductase AdvReac Other Verified 04/03/25 00:16 Inhibitor (Gfuqsdg-Wfw-Tks Reductase Inhibitor) Family History Mother COPD (chronic [...] 76.4 H, Lymph % (Auto) 13.5 L, [place] % (Auto) 7.0, Eos % (Auto) 1.9, [...] (Auto) 94.8 H, Lymph % (Auto) 3.3L, [place] % (Auto) 1.1, Eos % (Auto) 0.0, [...] possibly multifocal congestion and/or pneumonia. Reading Location: [facility] Chest CTA 04/03/25 02:34 IMPRESSION: Mild bilateral pleural effusions. Passive atelectatic airspace disease/airspace consolidations of the lower lobes. Bilateral chronic perihilar interstitial pulmonary thickening with associated mild multifocal ground-glass densities, possibly superimposed pneumonia. Mild diffuse spondylosis. No CT evidence of pulmonary embolus or aortic dissection. Reading [facility] Charges/Coding Visit Charges Inpatient E&M: 93497 Init Hosp L3 04/03/25 0904 <Electronically signed by Landry Fagan DO> Cosigner Signature (if applicable): CC: Dr. Ryley Jeter MD~ Signed [facility] Work Phone: 1(646) 644-881506-03-2025 Consult note [facility] Medical Records Department [address] [place] [address] Consultation - Architectural Renderer 04/03/25 0850 MR#: [id number] Acct: [id number] Name: ENOC ARMANDO Rep #:[id number] : 1945 79 From: Landry Fagan DO [...] without intubation This note was generated with [employer] software. It may contain incorrectwords, spelling, and [...] he has never been evaluated by a appointment scheduler or completed pulmonary function studies. Therefore, it is unknown if the patient has underlying obstructive lung disease. He does not utilize any inhalers at his [facility]. On presentation to the emergency department, the [...] morning to be a DNR CCA withoutintubation. [facility] Medical History Chronic anemia Tobacco use COPD [...] AdvReac Other Verified 04/03/25 00:16 (Glucocorticoids) (steroids) Sxexcpf-INZ-FfW Reductase AdvReac Other Verified 04/03/25 00:16 Inhibitor (Bldqier-Jap-Qvb Reductase Inhibitor) Family History Mother COPD (chronic [...] 76.4 H, Lymph % (Auto) 13.5 L, [place] % (Auto) 7.0, Eos % (Auto) 1.9, Baso % (Auto) 0.6, Absolute Neuts (auto) 12.0 H, Absolute Lymphs (auto) 2.12, Nucleated RBC % 0, PT 13.4, INR 1.0,APTT 37.3 H, D-Dimer Quant (PE/DVT) 1.86 H*, Sodium 139, Potassium 4.4,Chloride 104, Carbon Zoqisgn60.8 L, Anion Gap 14, BUN 42 H, [...] (Auto) 94.8 H, Lymph % (Auto) 3.3L, [place] % (Auto) 1.1, Eos % (Auto) 0.0, [...] pulmonary embolus or aortic dissection. [facility] Charges/Coding Visit Charges Inpatient E&M: 15406 Init Hosp L3 04/03/25 0904 Cosigner Signature (if applicable): CC: Dr. Ryley Jeter MD~ Signed [facility]06-03-2025 History and physical note Author Dyana Hwang [facility] Note Date/Time April 03, 2025 4:42a m [facility] Medical Records Department [address] [place] [address] H&P Exam - Hospitalist 04/03/25 0402 MR#: [id number] Acct: [id number] Name: ENOC ARMANDO Rep #:[id number] : 1945 79 From: Dyana Hwang MD [...] use who presents to the [facility] ED on 04/03/2025 with history [...] x 1 and sublingual nitroglycerin x 1. [facility] Medical History (Updated 04/03/25 @ 04:40 by [...] AdvReac Other Verified 04/03/25 00:16 (Glucocorticoids) (steroids) Lfmdxae-LKJ-DaN Reductase AdvReac Other Verified 04/03/25 00:16 Inhibitor (Fkqlqgx-Xaa-Iqf Reductase Inhibitor) Family History (Updated 04/03/25 @ [...] 76.4 H, Lymph % (Auto) 13.5 L, [place] % (Auto) 7.0, Eos % (Auto) 1.9, [...] possibly multifocal congestion and/or pneumonia. Reading Location: [place] [address] Chest CTA 04/03/25 02:34 IMPRESSION: Mild bilateral pleural effusions. Passive atelectatic airspace disease/airspace consolidations of the lower lobes. Bilateral chronic perihilar interstitial pulmonary thickening with associated mild multifocal ground-glass densities, possibly superimposed pneumonia. Mild diffuse spondylosis. No CT evidence of pulmonary embolus or aortic dissection. Reading Location: [place] [address] Assessment & Plan Assessment/Plan (1) Acute hypoxic respiratory failure: PLAN: Plan The patient is an 79 y/o M w/ PMHx: CKD stage III unclear subtype per GFR trending, Chronic macrocytic anemia, HTN, HLD, Diabetes mellitus type II, BPH with obstructive pathology, Tobacco use who presents to the [facility] ED on 04/03/2025 with history [...] any pulmonary embolus or aortic dissection, initial [id number] with repeat delta troponin 76. Will maintain [...] 16 minutes. Charges/Coding Visit Charges Inpatient E&M: 91455 Init Hosp L3 Procedures Hospitalists Procedures: 02745 Advncd Care Plan 30 Min 04/03/25 0442 <Electronically signed by Dyana Hwang MD> Cosigner Signature (if applicable): CC: Dr. Dyana Hwang MD; Dr. Ryley Jeter MD~ Signed [facility] Work Phone: 1(309) 886-579006-03-2025 Evaluation note* Diagnosis Onset Date Resolution Status Admit Date Acute hypoxic respiratory failure ac [place] April 03, 2025 4:16am MADONNA (acute kidney injury) acute April 03, 2025 4:16am Anemia acute April 03, 2025 4:16am Bradycardia acute April 03 4:16am LV dysfunction acute April 03, 2025 4:16am Non-STEMI (non-ST elevated myocardial infarction) acute April 03, 2025 4:16am CKD (chronic kidney disease) , stage III chronic April 03, 2025 4 :16am HTN (hypertension) chronic April 032024 4:16am [facility] Work Phone: 1(897) 956-451106-03-2025 Evaluation note* Diagnosis Onset Date Resolution Status [...] exacerbation chronic April 192024 3:06am [facility] Work Phone: 1(120) 196-564106-03-2025 Evaluation note* Diagnosis Onset Date Resolution Status [...] exacerbation chronic April 192024 3:06am [facility] Work Phone: 1(428) 947-262106-03-2025 Discharge summary Author John Brandon [facility] Note Date/Time April 03, 2025 4:11a m [facility] Medical Records Department [address] [place] [address] Emergency Department Summary 04/03/25 MR#: [id number] Acct: [id number] Name: ENOC ARMANDO Rep #:[id number] : 1945 79 From: John Ramirez PCP: [...] AdvReac Other Verified 04/03/25 00:16 (Glucocorticoids) (steroids) Mgedzup-Abt-Kpv Reductase AdvReac Other Verified 04/03/25 00:16 Inhibitor [...] (L/min) 4 Fraction of Inspired Oxygen (FIO2) [facility] Narrative Medical decision making narrative: HISTORY OF [...] reviewed, Vital signs reviewed Constitutional: please see [facility] HENT: MMM Eyes: Pupils equal round and [...] MEDICAL DECISION MAKING: Chief Complaint: please see [facility] External records reviewed: Reviewed prior imaging studies: [...] Consults: internal medicine only sees Dr. Hwang) [facility] Narrative: The patient was initially tachycardic, [...] to ICU This note was generated with [employer] dictation software. It may contain incorrectwords, spelling, [...] 76.4 H Lymph % (Auto) 13.5 L [place] % (Auto) 7.0 Eos % (Auto) 1.9 [...] possibly multifocal congestion and/or pneumonia. Reading Location: [place] [address] Discharge Plan Triage Chief Complaint: Shortness of [...] MD [Primary Care Provider] - Print Language: Peruvian What to do if you have Problems For any increased pain, shortness of breath, bleeding, nausea or vomiting, chestpain, or any unexpected problems, contact your Primary Care Provider. Call [facility] ([phone]) or report to the closest Emergency Room. Call 911 if necessary. 04/03/25 0411 <Electronically signed by John Brandon DO> Cosigner Signature (if applicable): CC: Dr. Ryley Jeter MD ~ Signed [facility] Work Phone: 1(524) 608-310406-03-2025 History and physical note [facility] Medical Records Department [address] [place] [address] H&P Exam - Hospitalist 04/03/25 0402 MR#: [id number] Acct: [id number] Name: ENOC ARMANDO Rep #:[id number] : 1945 79 From: Dyana Hwang MD [...] use who presents to the [facility] ED on 04/03/2025 with history [...] x 1 and sublingual nitroglycerin x 1. [facility] Medical History (Updated 04/03/25 @ 04:40 by [...] AdvReac Other Verified 04/03/25 00:16 (Glucocorticoids) (steroids) Rkyuzya-YVQ-ItE Reductase AdvReac Other Verified 04/03/25 00:16 Inhibitor (Zmewzus-Wus-Vsq Reductase Inhibitor) Family History (Updated 04/03/25 @ [...] 76.4 H, Lymph % (Auto) 13.5 L, [place] % (Auto) 7.0, Eos % (Auto) 1.9, [...] possibly multifocal congestion and/or pneumonia. Reading Location: [place] [address] Chest CTA 04/03/25 02:34 IMPRESSION: Mild bilateral pleural effusions. Passive atelectatic airspace disease/airspace consolidations of the lower lobes. Bilateral chronic perihilar interstitial pulmonary thickening with associated mild multifocal ground-glass densities, possibly superimposed pneumonia. Mild diffuse spondylosis. No CT evidence of pulmonary embolus or aortic dissection. Reading Location: [place] [address] Assessment & Plan Assessment/Plan (1) Acute hypoxic respiratory failure: PLAN: Plan The patient is an 79 y/o M w/ PMHx: CKD stage III unclear subtype per GFR trending, Chronic macrocytic anemia, HTN, HLD, Diabetes mellitus type II, BPH with obstructive pathology, Tobacco use who presents to the [facility] ED on 04/03/2025 with history [...] any pulmonary embolus or aortic dissection, initial [id number] repeat delta troponin 76. Will maintain on [...] 16 minutes. Charges/Coding Visit Charges Inpatient E&M: 45404 Init Hosp L3 Procedures Hospitalists Procedures: 64840 Advncd Care Plan 30 Min 04/03/25 0442 Cosigner Signature (if applicable): CC: Dr. Dyana Hwang MD; Dr. Ryley Jeter MD~ Signed [facility]06-03-2025 Discharge summary [facility] Medical Records Department [address] [place] [address] Emergency Department Summary 04/03/25 MR#: [id number] Acct: [id number] Name: ENOC ARMANDO Rep #:[id number] : 1945 79 From: John Ramirez PCP: Dr. Ryley Jeter MD Status:REG ER Location: ED HPI History of Present Illness Chief Complaint: [facility] Medical History Pneumonia COVID [...] AdvReac Other Verified 04/03/25 00:16 (Glucocorticoids) (steroids) Rzpttdn-Yvz-Llc Reductase AdvReac Other Verified 04/03/25 00:16 Inhibitor [...] Consults: internal medicine only sees Dr. Hwang) [facility] Narrative: The patient was initially tachycardic, [...] to ICU This note was generated with [employer] dictation software. It may contain incorrectwords, spelling, [...] 76.4 H Lymph % (Auto) 13.5 L [place] % (Auto) 7.0 Eos % (Auto) 1.9 [...] possibly multifocal congestion and/or pneumonia. Reading Location: [place] [address] Discharge Plan Triage Chief Complaint: Shortness of [...] MD [Primary Care Provider] - Print Language: Peruvian What to do if you have Problems For any increased pain, shortness of breath, bleeding, nausea or vomiting, chestpain, or any unexpected problems, contact your Primary Care Provider. Call [facility] ([phone]) or report tothe closest Emergency Room. Call 911 if necessary. 04/03/25 0411 Cosigner Signature (if applicable): CC: Dr. Ryley Jeter MD ~ Signed [facility]06-03-2025 Radiology Diagnostic study note [facility] [address] [place] [address] CTA Chest W/WO Contrast MR#: [id number] Acct: [id number] Name: ENOC ARMANDO Rep #: [id number] : 1945 M 79 From: Darcy Reese MD PCP: Dr. Ryley Jeter MD Status: REG ER Study:CTA Chest W/WO Contrast Date of Exam: 04/03/25 Exam# [id number] Ordering Dr: Mine Brandon DO PROCEDURE: CTA [...] pulmonary embolus or aortic dissection. Reading Location: [place] [address] CC: Dr. Ryley Jeter MD; Dr. John Brandon DO ~ Fabrication Engineer: Signed [facility]06-03-2025 Radiology Diagnostic study note [facility] [address] [place] [address] Chest 1 View (Portable) MR#: [id number] Acct: [id number] Name: ENOC ARMANDO Rep #: [id number] : 1945 M 79 From: Darcy Reese MD PCP: Dr. Ryley Jeter MD Status: REG ER Study:Chest 1 View (Portable) Date of Exam: 04/03/25 Exam# [id number] Ordering Dr: Mine Brandon DO PROCEDURE: CHEST [...] possibly multifocal congestion and/or pneumonia. Reading Location: [place] [address] CC: Dr. Ryley Jeter MD; Dr. John Brandon DO ~ Fabrication Engineer: Signed [facility]05-27-2025 Telephone encounter Note* Telephone Encounter - Ej Guidry MA - 03/27/2025 1:23 PM EDT Called pt's Alice with lab results per Dr. Small. Alice verbalized understanding and had no further questions. [id number] Miscellaneous Notes* Telephone Encounter - Ej Guidry [...] To: Woo Small MD documented in this [id number] Telephone encounter Note* Telephone Encounter - Ej Guidry MA - 03/27/2025 10:50 AM EDT Left voicemail asking for pt to call back to go over lab results per Dr. Small. Given phone number caroline back. [id number] Telephone encounter Note* Telephone Encounter - Ej [...] 7:18 AM EDT To: Woo Small MD [id number] NotePatient ID: Enoc Armando is a 79 [...] being taken. Patient does not see a claims specialist. Eye exam is current. Currently taking: No [...] medications, past family his (more content not included)...[facility]05-12-2025 History of Present illness Narrative* Paty Ortega, [facility] - 03/12/2025 1:50 PM EDT Images from [...] being taken. Patient does not see a claims specialist. Eye exam is current. Currently taking: No [...] if BG <150 at HS. 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 Had bilat cataract extraction Dr. Lopez. Sees Dr. Browne in [place] every year routinely.Has blurred vision with low [...] Call if BG consistently <70 or >250. [phone] Continue to check blood sugar 3 times [...] CNP 03/12/25 1:21 PM documented in this [id number] NoteGeneral Cardiology New Patient Clinic Consult [facility], Heart & Vascular 03/09/2025 Woo Small MD [address] [place] [address], 3rd Floor Medical Office [facility] [address] Patient: Enoc Armando Date of [...] to be ischemic Coronary 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 (Primary) Patient underwent [...] No follow-ups on file. Woo Small MD, [facility] Non-Invasive Cardiology [facility] P:[phone] F:[phone] History of Present Illness: Enoc Armando is a 79 y.o. man with a past medical history of insulin-dependent diabetes for 30 years, history of tobacco use, recent COVID infection with systolic dysfunction ejection fraction ranging from 35 to 45% who presented initially to [facility] care. He underwent stress testing which showed inferior wall abnormality as well as ejection fraction of 50%. I initially met with him back in January 2024 and he was doing quite well, however he presented in October with symptoms of fatigue, malaise, flash pulmonary edema and hypertensive emergency with reduced ejection fraction at [facility]. 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 Tobacco abuse Past Surgical History: Procedure Laterality Date CATARACT EXT/ECCE Bilateral 12/2012,07/2014 TN CATH PLMT L HRT & ARTS W/NJX & ANGIO IMG S&I N/A 10/27/2024 Procedure: Coronary Angiogram; Surgeon: Elías Rodriguez MD; Location: [facility]BRID CABLE TOWER OPERATOR; Service: Cardiovascular TN CATH PLMT L HRT & ARTS W/NJX & ANGIO IMG S&I N/A 10/27/2024 Procedure: Left Heart Cath; Surgeon: Elías Rodriguez MD; Location: HYBRID CABLE TOWER OPERATOR; Service: Cardiovascular SKIN CANCER EXCISION 09/2021 L ear Family History Problem Relation Age of Onset Coronary artery disease Father Alzheimer's disease Father Social History Tobacco Use Smoking Statu (more content not included)...[facility] [id number] History of Present illness Narrative* Woo Small MD - 03/09/2025 9:39 AM EDT General Cardiology New Patient Clinic Consult [facility], Heart & Vascular 03/09/2025 Woo Small MD [address] [place] [address] 3rd Floor Medical Office [facility] [address] Patient: Enoc Armando Date of [...] to be ischemic Coronary 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 (Primary) Patient underwent [...] No follow-ups on file. Woo Small MD, [facility] Non-Invasive Cardiology [facility] P:[phone] F:[phone] History of Present Illness: Enoc Armando is a 79 y.o. man with a past medical history of insulin-dependent diabetes for 30 years, history of tobacco use, recent COVID infection with systolic dysfunction ejection fraction ranging from 35 to 45% who presented initially to [facility]. He underwent stress testing which showedinferior wall abnormality as well as ejection fraction of 50%. I initially met with him back in January 2024 and he was doing quite well, however he presented in October with symptoms of fatigue, malaise, flash pulmonary edema and hypertensive emergency with reduced ejection fraction at [facility]. 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 Tobacco abuse Past Surgical History: Procedure Laterality Date CATARACT EXT/ECCE Bilateral 12/2012,07/2014 TN CATH PLMT L HRT & ARTS W/NJX & ANGIO IMG S&I N/A 10/27/2024 Procedure: Coronary Angiogram; Surgeon: Elías Rodriguez MD; Location: HYBRID CABLE TOWER OPERATOR;Service: Cardiovascular TN CATH PLMT L HRT & ARTS W/NJX & ANGIO IMG S&I N/A 10/27/2024 Procedure: Left Heart Cath; Surgeon: Elías Rodriguez MD; Location: HYBRID CABLE TOWER OPERATOR; Service: Cardiovascular SKIN CANCER EXCISION 09/2021 L ear Family History Problem Relation Age of Onset Coronary artery disease Father Alzheimer's disease Father Social History Tobacco Use Smoking Status Every Day Current packs/day: 0.50 Average packs/day: 0.5 packs/day for 61.4 years (30.7 ttl pk-yrs) Types: Cigarettes Start date: 1965 Smokeless Tobacco Never Allergies: Kpqnlcf-gul-oya reductase inhibitors All of the information has [...] Cardiovascular Studies: [facility] 2024 Echo 2023 Carotids 2024 Summary 1. [...] arterial duplex was normal Echocardiogram reviewed from , 10/11/2023 moderately decreased ejection fraction estimated at [...] history suggesting prior/existing ASCVD documented in this [id number] Instructions* Patient Instructions* Woo Small MD - 03/09/2025 7:56 AM EDT How to Contact your Care Team: Provider: Dr. Woo Small MD Clinic Nurse: FIDEL Moran Clinic MA: VIVI Pagan REFILLS: When in need for refills please call your care team or the office at [phone]. Please include medication name, pharmacy name, and [...] work in 2 weeks documented in this [id number] NoteHMS DISCHARGE SUMMARY -- [facility] Enoc Armando : 1945 Admitted: 02/28/2025 Discharge Date: 03/05/25 PCP Handoff Recommended Outpatient Testing None Results Pending At Discharge None Clinical Summary Enoc Armando is a 79 y.o. male patient of Ryley Jeter MD with history of type I IDDM, hypertension, CAD, diastolic HF, dyslipidemia, COPD, CKD presented to [facility] on 02/28/2025 with shortness of breath. [...] by mouth daily . (more content not included)...[facility]05-04-2025 NoteHMS PROGRESS NOTE Patient Name: Enoc Armando : 1945 Assessment and Plan Enoc Armando is a 79 y.o. male patient of Ryley Jeter MD with history of type I IDDM, hypertension, CAD, diastolic HF, dyslipidemia, COPD, CKD presented to [facility] on 02/28/2025 with shortness of breath. [...] affect AUTHENTICATED BY BERNADETTE PARNELL ON 03/04/2025 11:10:[address] [place] [address] 03-03-2025 NoteHMS PROGRESS NOTE Patient Name: Enoc Armando : 1945 Assessment and Plan Enoc Armando is a 79 y.o. male patient of Ryley Jeter MD with history of type I IDDM, hypertension, CAD, diastolic HF, dyslipidemia, COPD, CKD presented to [facility] on 02/28/2025 with shortness of breath. [...] affect AUTHENTICATED BY BERNADETTE PARNELL, ON 03/03/2025 12:05:[address] [place] [address] 03-03-2025 NoteGeneral Cardiology Inpatient Follow-up Heart & Vascular [facility] 03/03/2025 Aparna Browne, 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 [...] Final Result by Elías Rodriguez MD (10/27/2024 0972) Review of Systems: The following system(s) were [...] dictation software was used Aparna Browne MSN, HI LO DRIVER, ANP-C [1] Current Facility-Administered Medications Medication Dose [...] 0-5,000 Units Intravenous Con (more content not included)...[facility]05-02-2025 NoteHMS PROGRESS NOTE Patient Name: Enoc Armando : 1945 Assessment and Plan Enoc Armando is a 79 y.o. male patient of Ryley Jeter MD with history of type I IDDM, hypertension, CAD, diastolic HF, dyslipidemia, COPD, CKD presented to [facility] on 02/28/2025 with shortness of breath. [...] affect AUTHENTICATED BY PEMA DUNBAR, ON 03/02/2025 13:48:04[facility] 03-01-2025 NoteHMS PROGRESS NOTE Patient Name: Enoc Armando : 1945 Assessment and Plan Enoc Armando is a 79 y.o. male patient of Ryley Jeter MD with history of type I IDDM, hypertension, CAD, diastolic HF, dyslipidemia, COPD, CKD presented to [facility] on 02/28/2025 with shortness of breath. [...] affect AUTHENTICATED BY PEMA DUNBAR, ON 03/01/2025 12:52:[address] [place] [address] 02-28-2025 NoteHMS PROGRESS NOTE Patient Name: Enoc Armando : 1945 Assessment and Plan Enoc Armando is a 79 y.o. male patient of Ryley Jeter MD with history of type I IDDM, hypertension, CAD, diastolic HF, dyslipidemia, COPD, CKD presented to [facility] on 02/28/2025 with shortness of breath. [...] affect AUTHENTICATED BY PEMA DUNBAR, ON 02/28/2025 13:04:[address] [place] [address] 02-28-2025 NoteHMS HISTORY AND PHYSICAL -- [facility] Patient Name: Enoc Armando : 1945 MR #: [id number] Admit Date: 02/28/2025 Physicians: Ryley Jeter MD (Family); No ref. provider found (Referring) Enoc Armando is a 79 y.o. male patient of Ryley Jeter MD with history of type I IDDM, hypertension, CAD, diastolic HF, dyslipidemia, COPD, CKD presented to [facility] on 02/28/2025 with shortness of breath. [...] diastolic HF, dyslipidemia, COPD, CKD presented to [facility] on 02/28/2025 with shortness of breath. 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 Tobacco abuse Past Surgical History Past Surgical History: Procedure Laterality Date CATARACT EXT/ECCE Bilateral 12/2012,07/2014 [place] CATH PLMT L HRT & ARTS W/NJX & ANGIO IMG S&I N/A 10/27/2024 Procedure: Coronary Angiogram; Surgeon: Elías Rodriguez MD; Location: HYBRID CABLE TOWER OPERATOR; Service: Cardiovascular TN CATH PLMT L HRT & ARTS W/NJX & ANGIO IMG S&I N/A 10/27/2024 Procedure: Left Heart Cath; Surgeon: Elías Rodriguez MD; Location: [facility] HYBRID CABLE TOWER OPERATOR; Service: Cardiovascular SKIN CANCER EXCISION 09/2021 L ear Family History Family History Problem Relation Age of Onset Coronary artery disease Father Alzheimer's disease Father Social History Tobacco Use History[1] Social History Substance and Sexual Activity Alcohol Use No Alcohol/week: 0.0 standard drinks of alcohol Social History Substance and Sexual Activity Drug Use No Allergy Information I have reviewed the patient's allergies. Zhvpsqh-vpi-aaj reductase inhibitors Home Medications Home medications were reviewed. Review Of Systems All relevant systems have been reviewed and are negative except as noted in HPI or below Physical Examination BP (!) 194/62 Pulse 97 Temp 97.8 degrees F (36.6 degrees C) (Oral) Resp (!) 22 Ht 5' 7 Wt 65.8 (more content not included)...[facility]04-28-2025 History of Present illness Narrative* Ayanna [...] DO 02/26/25 1:17 PM documented [facility] Work Phone: 1(127) 297-682904-16-2025 History of Present illness Narrative* Ej Guidry MA - 02/14/2025 11:02 AM EDT Refaxed letter written on 01/18/[address] Small to [facility]. documented in this [id number] Instructions* Patient Instructions* Luisa Easley RN - 11/14/2024 11:36 AM EST How to Contact your Care Team: Provider: Dr. Woo Small MD Clinic Nurse: FIDEL Moran Clinic MA: VIVI Pagan REFILLS: When in need for refills please call your care team or the office at [phone]. Please include medication name, pharmacy name, and specify 30-day or 90-day supply. Please check with your pharmacy within 24 hours of request for your refill. You must follow up as directed to continue current refills. Thank you! documented in this [id number] History of Present illness Narrative* Woo Small MD - 11/14/2024 10:40 AM EST General Cardiology New Patient Clinic Consult [facility], Heart & Vascular 11/14/2024 Woo Small MD [address] [place] [id number] Patient: Enoc Armando Date of : 1945 (78 y.o.) PCP: Ryley Jeter MD Date of Service: 11/14/2024 Chief Complaint: Follow-up Assessment and Plan: 1. Coronary 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(Primary) Patient underwent left [...] 6 months (around 05/14/2025). Woo Small MD, [facility] Non-[facility]vasive [facility] [facility] P:[phone] F:[phone] History of Present Illness: Enoc Armando is a 78 y.o. man with a past medical history of insulin-dependent diabetes for 30 years, history of tobacco use, recent COVID infection with systolic dysfunction ejection fraction ranging from 35 to 45% who presented initially to [facility]. He underwent stress testing which showedinferior wall abnormality as well as ejection fraction of 50%. I initially met with him back in January 2024 and he was doing quite well, however he presented in October with symptoms of fatigue, malaise, flash pulmonary edema and hypertensive emergency with reduced ejection fraction at [facility]. 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 Tobacco abuse Past Surgical History: Procedure Laterality Date CATARACT EXT/ECCE Bilateral 12/2012,07/2014 [place] CATH PLMT L HRT & ARTS W/NJX & ANGIO IMG S&I N/A 10/27/2024 Procedure: Coronary Angiogram; Surgeon: Elías Rodriguez MD; Location: HYBRID CABLE TOWER OPERATOR;Service: Cardiovascular TN CATH PLMT L HRT & ARTS W/NJX & ANGIO IMG S&I N/A 10/27/2024 Procedure: Left Heart Cath; Surgeon: Elías Rodriguez MD; Location: HYBRID CABLE TOWER OPERATOR; Service: Cardiovascular SKIN CANCER EXCISION 09/2021 L ear Family History Problem Relation Age of Onset Coronary artery disease Father Alzheimer's disease Father Social History Tobacco Use Smoking Status Every Day Current packs/day: 0.50 Average packs/day: 0.5 packs/day for 61.0 years (30.5 ttl pk-yrs) Types: Cigarettes Start date: 1965 Smokeless Tobacco Never Allergies: Mrwkfpr-paa-pja reductase inhibitors All of the information has [...] 90 tablet, Rfl: 3 OXYGEN-AIR DELIVERY SYSTEMS [facility], Inhale 2 L/min See Admin Instructions ., [...] Cardiovascular Studies: [facility] 2024 Echo 2023 Carotids 2024 Summary 1. [...] arterial duplex was normal Echocardiogram reviewed from , 10/11/2023 moderately decreased ejection fraction estimated at [...] history suggesting prior/existing ASCVD documented in this [id number] NoteGeneral Cardiology New Patient Clinic Consult [facility], Heart & Vascular 11/14/2024 Woo Small MD [address] [place] [id number] Patient: Enoc Armando Date of : 1945 (78 y.o.) PCP: yRley Jeter MD Date of Service: 11/14/2024 Chief Complaint: Follow-up Assessment and Plan: 1. Coronary 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 (Primary) Patient underwent [...] 6 months (around 05/14/2025). Woo Small MD, [facility] Non-Invasive Cardiology [facility] P:[phone] F:[phone] History of Present Illness: Enoc Armando is a 78 y.o. man with a past medical history of insulin-dependent diabetes for 30 years, history of tobacco use, recent COVID infection with systolic dysfunction ejection fraction ranging from 35 to 45% who presented initially to [facility]. He underwent stress testing which showed inferior wall abnormality as well as ejection fraction of 50%. I initially met with him back in January 2024 and he was doing quite well, however he presented in October with symptoms of fatigue, malaise, flash pulmonary edema and hypertensive emergency with reduced ejection fraction at [facility]. 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 Tobacco abuse Past Surgical History: Procedure Laterality Date CATARACT EXT/ECCE Bilateral 12/2012,07/2014 TN CATH PLMT L HRT & ARTS W/NJX & ANGIO IMG S&I N/A 10/27/2024 Procedure: Coronary Angiogram; Surgeon: Elías Rodriguez MD; Location: [facility] HYBRID CABLE TOWER OPERATOR; Service: Cardiovascular TN CATH PLMT L HRT & ARTS W/NJX & ANGIO IMG S&I N/A 10/27/2024 Procedure: Left Heart Cath; Surgeon: Elías Rodriguez MD; Location: HYBRID CABLE TOWER OPERATOR; Service: Cardiovascular SKIN CANCER EXCISION 09/2021 L ear Family History Problem Relation Age of Onset Coronary artery disease Father Alzheimer's disease Father Social History Tobacco Use Smoking Status Every Day Current packs/day: 0.50 Average packs/day: 0.5 packs/day for 61.0 years (30.5 ttl pk-yrs) Types: Cigarettes Start date: 1965 Smokeless Tobacco Never Allergies: Yrolqcb-cax-mbu reductase inhibitors All of the information has been reviewed at today's visit and modified if necessary. Home Medications: Current Outpatient Medications: acetaminophen (Tylenol Arthritis Pain) 650 MG CR tablet, Take 1 (one) tablet (650 mg total) by mouth every 8 (eight) hours as needed for pain ., (more content not included)...[facility] [id number] NotePatient ID: Enoc Armando is a 78 [...] required IV insulin gtt. . Hospitalized in [facility]. Reports URI symptoms with ear lockage. [...] being taken. Patient does not see a claims specialist. Eye exam is current. Currently taking: No [...] kg (148 lb) 01 (more content not included)...[facility]01-13-2025 History of Present illness Narrative* Paty Ortega [...] required IV insulin gtt. . Hospitalized in [facility]. Reports URI symptoms with ear lockage. [...] being taken. Patient does not see a claims specialist. Eye exam is current. Currently taking: No [...] if BG <150 at HS. 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 Had bilat cataract extraction Dr. Lopez. Sees Dr. Browne in [place] every year routinely.Has blurred vision with low [...] Call if BG consistently <70 or >250. [phone] Continue to check blood sugar 3 times [...] CNP 11/13/24 1:21 PM documented in this [id number] Evaluation + Plan note* Assessment & Plan [...] be performed in conjunction with coronary revascularization. [id number] Miscellaneous Notes* Assessment & Plan Note - [...] conjunction with coronary revascularization. documented in this [id number] NoteOFFICE CONSULTATION NOTE [facility] [address] ([address]) [facility] [address] 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 Tobacco abuse Past Surgical History: Procedure Laterality Date CATARACT EXT/ECCE Bilateral 12/2012,07/2014 TN CATH PLMT L HRT & ARTS W/NJX & ANGIO IMG S&I N/A 10/27/2024 Procedure: Coronary Angiogram; Surgeon: Elías Rodriguez MD; Location: HYBRID CABLE TOWER OPERATOR;Service: Cardiovascular TN CATH PLMT L HRT & ARTS W/NJX & ANGIO IMG S&I N/A 10/27/2024 Procedure: Left Heart Cath; Surgeon: Elías Rodriguez MD; Location: HYBRID CABLE TOWER OPERATOR; Service: Cardiovascular SKIN CANCER EXCISION 09/2021 [...] Reported on 11/09/2024 .) Allergies Allergen Reactions Fihaaao-Izs-Wfn Reductase Inhibitors Muscle cramps ROS Negative aside [...] 11/27/2023 Kristy Parker MD documented in this [id number] Instructions* Patient Instructions* Yesenia Mcdaniel MA - 11/09/2024 10:32 AM EST How to contact your Care Team: Provider: MD Georgia Ludwig CNP Nyoka Fauser, CNP Jill Bender, PA Nurse: Jeannie Rubio RN To reschedule office appointments call Scheduling [phone] In case of an emergency please call 911. When in need of refills please call the phone number listed above. Please include medication name, pharmacy name and specify 30 or 90 day supply Please check with your pharmacy within 24 hours of your request for refill. You must follow up as directed to continue current refills. Thank you! documented in this [id number] Amanda Armando [phone] @[email or web address]@ Brock Groves MD 11/07/24 Room/bed info [...] failure which required admission to [facility] for hypertensive emergency and acute [...] artery stenosis - CHF (congestive heart failure) ([facility]) - CKD (chronic kidney disease) stage 4, GFR 15-29 ml/min ([facility]) - Diabetes mellitus type 1 ([facility]) - Emphysema lung ([facility]) - Hypercholesterolemia - Hypertension - Kidney stone 2006 Lithotripsy - Normocytic anemia - PAD (peripheral artery disease) ([facility]) - Pneumonia - Polyneuropathy - Spinal stenosis, lumbar - 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 - Tobacco abuse Past Surgical History: Procedure Laterality Date - CATARACT EXT/ECCE Bilateral 12/2012,07/2014 - TN CATH PLMT L HRT & ARTS W/NJX & ANGIO IMG S&I N/A 10/27/2024 Procedure: Coronary Angiogram; Surgeon: Elías Rodriguez MD; Location: [facility] CABLE TOWER OPERATOR; Service: Cardiovascular - TN CATH PLME L HRT & ARTS W/NJX & ANGIO IMG S&I N/A 10/27/2024 Procedure: Left Heart Cath; Surgeon: Elías Rodriguez MD; Location: HYBRID CABLE TOWER OPERATOR; Service: Cardiovascular - SKIN CANCER EXCISION [...] 3 - insulin g (more content not included)...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 90 tablet 3 OXYGEN-AIR DELIVERY SYSTEMS [facility] Inhale 2 L/min See Admin Instructions . [...] file prior to visit. Allergies Allergen Reactions Ifjgkpf-Eqx-Qar Reductase Inhibitors Muscle cramps Family History Problem [...] Resource Strain: Low Risk (10/11/2023) Received from [facility] Overall Financial Resource Strain (CARDIA) Difficulty of [...] Addressed This Visit None documented in this [id number] Progress note* Quick Note - Karthik Sandoval RN - 10/28/2024 2:53 PM EST Patient blood sugar at 1:27pm measured 288. Blood sugar at this time measured 321. [facility] ordered to give 8 units of lispro at this time and to instruct patient to recheck blood sugar in a couple hours at home. Patient IV removed and discharge education provided at this time. Patient understands and verbalizes he will check blood sugar when home and to follow medication regimen after discharge [id number] Miscellaneous Notes* Quick Note - Karthik Sandoval RN - 10/28/2024 2:53 PM EST Patient blood sugar at 1:27pm measured 288. Blood sugar at this time measured 321. [facility] ordered to give 8 units of [...] but appreciative with provided care. Bed alarm cotton feeder light in reach. * Plan of Care [...] potasium and elevated glucose. documented in this [id number] NoteHMS DISCHARGE SUMMARY -- [facility] Enoc Armando Admitted: 10/27/2024 Discharge Date: 10/28/24 PCP Handoff Recommended Outpatient Testing none Results Pending At Discharge none Clinical Summary Enoc Armando is a 78 y.o. male patient of Ryley Jeter MD with history of coronary artery disease, type 1 diabetes, diastolic CHF, hypertension dyslipidemia COPD and lumbar spinal stenosis with chronic low back pain presented to [facility] on 10/27/2024 for an elective left [...] . Physician(s) Follow Up: Brock Groves MD [address] [place] [id number] Follow up on 11/07/2024 Consultation for surgivcal [...] PM AUTHENTICATED BY NIDIA GARAY, ON 10/28/2024 14:19:[address] [place] [address] 10-28-2024 Hospital course Narrative* Nidia Garay MD - 10/28/2024 2:16 PM EST [facility] DISCHARGE SUMMARY -- [facility] Enoc Armando Admitted: 10/27/2024 Discharge Date: 10/28/24 PCP Handoff Recommended Outpatient Testing none Results Pending At Discharge none Clinical Summary Enoc Armando is a 78 y.o. male patient of Ryley Jeter MD with history of coronary artery disease, type 1 diabetes, diastolic CHF, hypertension dyslipidemia COPD and lumbar spinal stenosis withchronic low back pain presented to [facility] on 10/27/2024 for an elective left [...] . Physician(s) Follow Up: Brock Groves MD [address] [place] [address] [phone] Follow up on 11/07/2024 Consultation for surgivcal [...] on 10/28/24, 2:16 PM documented in this [id number] NoteDaily Progress Note Assessment/Plan: Principal Problem: Hyperglycemia [...] Garay.. AUTHENTICATED BY ZOILA POLLARD, ON 10/28/2024 14:16:[address] [place] [address] 10-28-2024 History of Present illness Narrative* Zoila [...] MD - 10/28/2024 11:36 AM EST [facility] PROGRESS NOTE Assessment and Plan Enoc Armando is a 78 y.o. male patient of Ryley Jeter MD with history of coronary artery disease, type 1 diabetes, diastolic CHF, hypertension dyslipidemia COPD and lumbar spinal stenosis withchronic low back pain presented to [facility] on 10/27/2024 for an elective left [...] normal mood and affect documented in this [id number] NoteHMS PROGRESS NOTE Assessment and Plan Enoc Armando is a 78 y.o. male patient of Ryley Jeter MD with history of coronary artery disease, type 1 diabetes, diastolic CHF, hypertension dyslipidemia COPD and lumbar spinal stenosis with chronic low back pain presented to [facility] on 10/27/2024 for an elective left [...] affect AUTHENTICATED BY NIDIA GARAY, ON 10/28/2024 11:43:[address] [place] [address] 10-28-2024 Plan of care note* Plan of Care - Karthik Sandoval RN - 10/28/2024 9:11 AM EST Problem: Actual or potential alteration in health Goal: Absence of healthcare acquired conditions Outcome: Partially Met Goal: Knowledge of Interdisciplinary Plan of Care Outcome: Partially Met Goal: Knowledge of Enviroment Outcome: Partially Met Problem: Pressure Injury, Risk of Goal: Absence of pressure injury Outcome: Partially Met [id number] Progress note* Quick Note - Julia Chan RN - 10/28/2024 8:05 AM EST Patient stands at edge of bed to void and request to go to restroom. Patient does not want bedrest orders that are in place at this time. Patient is anxious for dc to home but appreciative with provided care. Bed alarm cotton feeder light in reach. [id number] Plan of care note* Plan of Care [...] continue to monitor and report any concerns. [address]YgogQkyhyt08-37-3972 Progress note* Quick Note - Julia Chan [...] drip infusing and started at 6.6 units/hr. [address]WfhrRigrvi68-51-1522 Progress note* Quick Note - Julia Chan [...] excluding ice chips and sips with meds [id number] Progress note* Quick Note - Julia Chan RN - 10/27/2024 10:18 PM EST This RN received report from observation unit nurse via phone. [id number] Plan of care note* Plan of Care - Carlita Roth RN - 10/27/2024 9:42 PM EST Problem: Actual or potential alteration in health Goal: Absence of healthcare acquired conditions Outcome: Partially Met Goal: Knowledge of Interdisciplinary Plan of Care Outcome: Partially Met Goal: Knowledge of Enviroment Outcome: Partially Met [id number] History and physical note* Cintia Benitez MD - 10/27/2024 8:26 PM EST [facility] HISTORY AND PHYSICAL -- [facility] Patient Name: Enoc Armando : 1945 MR #: [id number] Admit Date: 10/27/2024 Physicians: Ryley Jeter MD (Family); No ref. provider found (Referring) Enoc Armando is a 78 y.o. male patient of Ryley Jeter MD with history of coronary artery disease, type 1 diabetes, diastolic CHF, hypertension dyslipidemia COPD and lumbar spinal stenosis withchronic low back pain presented to [facility] on 10/27/2024 for an elective left [...] with chronic low back pain presented to [facility] on 10/27/2024 for an elective left [...] Information I have reviewed the patient's allergies. Wgfvgxr-bgk-dcv reductase inhibitors Home Medications Home medications were [...] normal coloration Psych: normal mood and affect [id number] NoteHMS HISTORY AND PHYSICAL -- [facility] Patient Name: Enoc Armando : 1945 MR #: [id number] Admit Date: 10/27/2024 Physicians: Ryley Jeter MD (Family); No ref. provider found (Referring) Enoc Armando is a 78 y.o. male patient of Ryley Jeter MD with history of coronary artery disease, type 1 diabetes, diastolic CHF, hypertension dyslipidemia COPD and lumbar spinal stenosis with chronic low back pain presented to [facility] on 10/27/2024 for an elective left [...] with chronic low back pain presented to [facility] on 10/27/2024 for an elective left [...] Information I have reviewed the patient's allergies. Qjouuhx-zsc-jss reductase inhibitors Home Medications Home medications were [...] Skin: normal coloration Psych: (more content not included)...[facility]12-27-2024 History and physical note* Cintia Benitez MD - 10/27/2024 8:26 PM EST [facility] HISTORY AND PHYSICAL -- [facility] Patient Name: Enoc Armando : 1945 [id number] [id number] Admit Date: 10/27/2024 Physicians: Ryley Jeter MD (Family); No ref. provider found (Referring) Enoc Armando is a 78 y.o. male patient of Ryley Jeter MD with history of coronary artery disease, type 1 diabetes, diastolic CHF, hypertension dyslipidemia COPD and lumbar spinal stenosis withchronic low back pain presented to [facility] on 10/27/2024 for an elective left [...] with chronic low back pain presented to [facility] on 10/27/2024 for an elective left [...] Information I have reviewed the patient's allergies. Xzqbelx-swi-qef reductase inhibitors Home Medications Home medications were [...] Enoc Armando Admit Date: 12261205 MR #: [id number] : 1945 The H&P has been reviewed [...] need for emergency surgery, need for pacemaker, [place], stroke, or cardiac arrest/. Patient voiced understanding and agreed to proceed. Sedation Plan: Moderate ASA Classification: ASA 3: A patient with severe systemic disease. Mallampati Score: Class III: Only the soft palate is visible lEías Rodriguez MD 10/27/2024 8:17 AM Source Note - Woo Small MD - 10/18/2024 1:20 PM EST General Cardiology New Patient Clinic Consult [facility], Heart & Vascular 10/18/2024 Woo Small MD [address] [place] [address] 3rd Floor Medical Office [facility] [id number] Patient: Enoc Armando Date of [...] No follow-ups on file. Woo Small MD, [facility] Non-Invasive Cardiology [facility] P:[phone] F:[phone] History of Present Illness: Enoc Armando is a 78 y.o. man with a past medical history of insulin-dependent diabetes for 30 years, history of tobacco use, recent COVID infection with systolic dysfunction ejection fraction ranging from 35 to 45% who presented initially to [facility]. He underwent stress testing which showedinferior wall abnormality as well as ejection fraction of 50%. I initially met with him back in January and he was doing quite well, however today he presents with progressive symptoms of fatigue, malaise, and a recent heart failure exacerbation at [facility] for hypertensive emergency and acute [...] Cigarettes Smokeless Tobacco Never Allergies: Prednisone and Sfiwvry-gze-jaj reductase inhibitors All of the information has [...] 90 tablet, Rfl: 3 OXYGEN-AIR DELIVERY SYSTEMS [facility], Inhale 2 L/min See Admin Instructions ., [...] 50%, rest LVEF 51%. Echocardiogram reviewed from , 10/11/2023 moderately decreased ejection fraction estimated at [...] history suggesting prior/existing ASCVD documented in this [id number] Progress note* Quick Note - Zoila Pollard [...] stage IV kidney disease, BUN/creatinine: 92/2.60 respectively. [id number] Progress note* Quick Note - Mary Willis RN - 10/27/2024 12:[address] Rodriguez notified and at bedside to speak to patient r/g Critical potasium and elevated glucose. [id number] Attending History and physical note* Elías Rodriguez MD - 10/27/2024 8:17 AM EST INTERVAL HISTORY AND PHYSICAL Patient Name: Enoc Armando Admit Date: 12261205 MR #: [id number] : 1945 The H&P has been reviewed [...] need for emergency surgery, need for pacemaker, [place], stroke, or cardiac arrest/. Patient voiced understanding and agreed to proceed. Sedation Plan: Moderate ASA Classification: ASA 3: A patient with severe systemic disease. Mallampati Score: Class III: Only the soft palate is visible Elías Rodriguez MD 10/27/2024 8:17 AM Source Note - Woo Small MD - 10/18/2024 1:20 PM EST General Cardiology New Patient Clinic Consult [facility], Heart & Vascular 10/18/2024 Woo Small MD [address] [place] [address] 3rd Floor Medical Office [facility] [id number] Patient: Enoc Armando Date of [...] No follow-ups on file. Woo Small MD, [facility] Non-Invasive Cardiology [facility] P:[phone] F:[phone] History of Present Illness: Enoc Armando is a 78 y.o. man with a past medical history of insulin-dependent diabetes for 30 years, history of tobacco use, recent COVID infection with systolic dysfunction ejection fraction ranging from 35 to 45% who presented initially to [facility]. He underwent stress testing which showedinferior wall abnormality as well as ejection fraction of 50%. I initially met with him back in January and he was doing quite well, however today he presents with progressive symptoms of fatigue, malaise, and a recent heart failure exacerbation at [facility] for hypertensive emergency and acute [...] Cigarettes Smokeless Tobacco Never Allergies: Prednisone and Vbdmrzg-czm-qea reductase inhibitors All of the information has [...] 90 tablet, Rfl: 3 OXYGEN-AIR DELIVERY SYSTEMS [facility], Inhale 2 L/min See Admin Instructions ., [...] 50%, rest LVEF 51%. Echocardiogram reviewed from , 10/11/2023 moderately decreased ejection fraction estimated at [...] has a medical history suggesting prior/existing ASCVD [facility] Work Phone: 1(108) 377-669912-27-2024 Hospital Discharge instructions* Discharge Instructions* Sonya King RN - 10/27/2024 8:16 AM EST [facility] Heart & Vascular Physicians Post Cardiac Catheterization Discharge Instructions Site Care Leave Bandage in place the night of your catheterization. Watch for any bleeding or oozing from thesite. If this occurs, lie flat and place direct pressure on the bandage for 20 minutes. If bleedingreoccurs call [facility]. For groins, remove your bandage the following [...] shower 24 hours after the procedure. Call [facility] at [phone] if you notice any of the following: [...] need of prescription assistance, please notify the [facility] nurse or call the office. If you were prescribed Plavix (clopidogrel), Effient (prasugrel), or Brilinta (ticagrelar) after your procedure, DO NOT STOP taking this medication unless told to do so by your [facility] securities trader. Follow up appointments, tests or procedures will be on your discharge paperwork under What's next. Please call [facility] at [phone] to reschedule any appointments if needed or if you have any questions or concerns. Thank you! documented in this [id number] Instructions* Patient Instructions* Luisa Easley RN - 10/18/2024 1:27 PM EST How to Contact your Care Team: Provider: Dr. Woo Small MD Clinic Nurse: Luisa Vega RN Clinic MA: Ej Guidry MA REFILLS: When in need for refills please call your care team or the office at [phone]. Please include medication name, pharmacy name, and specify 30-day or 90-day supply. Please check with your pharmacy within 24 hours of request for your refill. You must follow up as directed to continue current refills. Thank you! Heart Catheterization Date of your procedure: 10/27/2024 at 8:00am Please arrive at [facility]. Please park in the garage next to the medical office building. If needed, concrete paver parking is available at the front entrance [...] questions or concerns please contact us at [phone]. documented in this [id number] History of Present illness Narrative* Woo Small MD - 10/18/2024 1:20 PM EST General Cardiology New Patient Clinic Consult [facility] Physician Group, Heart & Vascular 10/18/2024 Woo Small MD [address] [place] [address], 3rd Floor Medical Office [facility] [address] Patient: Enoc Armando Date of [...] No follow-ups on file. Woo Small MD, [facility] Non-Invasive Cardiology [facility] P:[phone] F:[phone] History of Present Illness: Enoc Armando is a 78 y.o. man with a past medical history of insulin-dependent diabetes for 30 years, history of tobacco use, recent COVID infection with systolic dysfunction ejection fraction ranging from 35 to 45% who presented initially to [facility] care. He underwent stress testing which showedinferior wall abnormality as well as ejection fraction of 50%. I initially met with him back in January and he was doing quite well, however today he presents with progressive symptoms of fatigue, malaise, and a recent heart failure exacerbation at [facility] for hypertensive emergency and acute [...] Cigarettes Smokeless Tobacco Never Allergies: Prednisone and Giuaqht-izy-nig reductase inhibitors All of the information has [...] 50%, rest LVEF 51%. Echocardiogram reviewed from , 10/11/2023 moderately decreased ejection fraction estimated at [...] history suggesting prior/existing ASCVD documented in this [id number] NoteGeneral Cardiology New Patient Clinic Consult [facility], Heart & Vascular 10/18/2024 Woo Small MD [address] [facility], 3rd Floor Medical Office [facility] [address] Patient: Enoc Armando Date of [...] No follow-ups on file. Woo Small MD, [facility] Non-Invasive Cardiology [facility] P:[phone] F:[phone] History of Present Illness: Enoc Armando is a 78 y.o. man with a past medical history of insulin-dependent diabetes for 30 years, history of tobacco use, recent COVID infection with systolic dysfunction ejection fraction ranging from 35 to 45% who presented initially to [facility]. He underwent stress testing which showed inferior wall abnormality as well as ejection fraction of 50%. I initially met with him back in January and he was doing quite well, however today he presents with progressive symptoms of fatigue, malaise, and a recent heart failure exacerbation at [facility] for hypertensive emergency and acute [...] Cigarettes Smokeless Tobacco Never Allergies: Prednisone and Tvfgqth-qpk-hxn reductase inhibitors All of the information has [...] capsule, Take 1 ( (more content not included)...[facility]12-06-2024 Telephone encounter Note* Telephone Encounter - Luisa Easley RN - 10/06/2024 2:45 PM EST Spoke with pt and reviewed Dr. Small's comments and suggestions. Pt was agreeable to starting Imdur 30mg daily and confirmed appt with Dr. Small on 10/18 at 1:20pm in the [place] location. Pt expressedappreciation and understanding. [id number] Telephone encounter Note* Telephone Encounter - Luisa [...] are involved abnormalities can be difficult to continuous pickling line pickler Would he be okay coming in the [...] Woo Small MD We received everything from [place] on him-I know we were waiting on this to see about changing things up ----- Message ----- From: Ej Guidry MA Sent: 10/04/2024 2:01 PM EST To: Luisa Easley RN Records from [facility] [id number] Miscellaneous Notes* Telephone Encounter - Luisa Easley RN - 10/06/2024 2:45 PM EST Spoke with pt and reviewed Dr. Small's comments and suggestions. Pt was agreeable to starting Imdur 30mg daily and confirmed appt with Dr. Small on 10/18 at 1:20pm in the [place] location. Pt expressedappreciation and understanding. * Telephone [...] are involved abnormalities can be difficult to continuous pickling line pickler Would he be okay coming in the [...] EST To: Luisa Easley RN Records from [facility] documented in this [id number] [facility] 09-12-[address] [facility]10-29-2024 History of Present illness Narrative* Ayanna [...] 08/29/24 1:12 PM documented in this [facility] Work Phone: 1(793) 129-258509-20-2024 NotePatient ID: Enoc Armando is a 78 [...] High flow O2, C-pap, etc. Hospitalized in [facility] with CHF, pleural effusions and elevated [...] being taken. Patient does not see a claims specialist. Eye exam is current. Currently taking: No [...] by mouth daily . OXYGEN-AIR DELIVERY [facility]S [facility], Inhale 2 L/min See Admin Instructions . [...] Neurological: Mental Status: He (more content not included)...[facility]09-20-2024 History of Present illness Narrative* Paty Ortega, [employer] CONSULTANT - 07/21/2024 1:58 PM EDT Images from [...] High flow O2, C-pap, etc. Hospitalized in [facility] with CHF, pleural effusions and elevated [...] being taken. Patient does not see a claims specialist. Eye exam is current. Currently taking: No [...] by mouth daily . OXYGEN-AIR DELIVERY SYSTEMS [facility], Inhale 2 L/min See Admin Instructions . [...] if BG <150 at HS. 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 Had bilat cataract extraction Dr. Lopez. Sees Dr. Browne in [place] every year routinely.Has blurred vision with low [...] Call if BG consistently <70 or >250. [phone] Continue to check blood sugar 3 times [...] CNP 07/21/24 1:21 PM documented in this [id number] Instructions* Patient Instructions* Luisa Easley RN - 04/24/2024 10:08 AM EDT How to Contact your Care Team: Provider: Dr. Woo Small MD Clinic Nurse: Luisa Easley RN Clinic MA: Ej Guidry MA REFILLS: When in need for refills please call your care team or the office at [phone]. Please include medication name, pharmacy name, and specify 30-day or 90-day supply. Please check with your pharmacy within 24 hours of request for your refill. You must follow up as directed to continue current refills. Thank you! documented in this [id number] History of Present illness Narrative* Woo Small MD - 04/24/2024 9:40 AM EDT General Cardiology New Patient Clinic Consult [facility], Heart & Vascular 04/24/2024 Woo Small MD [address] [place] [phone] Patient: Enoc Armando Date of : 1945 [...] 1 year (around 04/24/2025). Woo Small MD, [facility] Non-Invasive Cardiology [facility] Physician Group P:[phone] F:[phone] History of Present Illness: Enoc Armando is a 78 y.o. man with a past medical history of insulin-dependent diabetes for 30 years, history of tobacco use, recent COVID infection with systolic dysfunction ejection fraction ranging from 35 to 45% who presented initially to [facility] care. He underwent stress testing [...] Cigarettes Smokeless Tobacco Never Allergies: Prednisone and Ehqygsz-xym-buc reductase inhibitors All of the information has [...] 90 tablet, Rfl: 3 OXYGEN-AIR DELIVERY SYSTEMS [facility], Inhale 2 L/min See Admin Instructions ., [...] 50%, rest LVEF 51%. Echocardiogram reviewed from , 10/11/2023 moderately decreased ejection fraction estimated at [...] BILITOT 0.7 11/27/2023 The ASCVD Risk score (Brook[place] DK, et al., 2019) failed to calculate for the following reasons: The 2019 ASCVD risk score is only valid for ages 40 to 79 The patient has a prior [place] or stroke diagnosis documented in this [id number] Telephone encounter Note* Telephone Encounter - Ej Guidry MA - 03/28/2024 1:53 PM EDT Pt was last seen on 01/14/24 by Aylin Lacy CNP. Refills appropriate. Routing to Dr. Garay as Dr. Small is out of the office. [id number] Miscellaneous Notes* Telephone Encounter - Ej Guidry MA - 03/28/2024 1:53 PM EDT Pt was last seen on 01/14/24 by Aylin Lacy CNP. Refills appropriate. Routing to Dr. Garay as Dr. Small is out of the office. documented in this [id number] Evaluation + Plan note* Assessment & Plan Note - CULLEN Guzmán DNP - 02/24/2024 2:39 PM EDT Associated Problem(s): CKD (chronic kidney disease) Creatinine is stable at 1.92 and stable, stage IIIb, blood pressure is well controlled, diabetes well controlled, not using NSAIDs. [facility] Work Phone: 1(511) 883-754604-25-2024 Miscellaneous Notes* Assessment & Plan Note - [...] metoprolol, no changes documented in this [facility] Work Phone: 1(981) 319-223004-25-2024 Evaluation + Plan note* Assessment & Plan Note - CULLEN Guzmán DNP - 02/24/2024 2:38 PM EDTAssociated Problem(s): Type 1 diabetes mellitus with diabetic neuropathy (Multi) Follows with endocrinology, is not to use SGLT2 due to Type I diabetes [facility] Work Phone: 1(493) 705-591504-25-2024 Evaluation + Plan note* Assessment & Plan Note - CULLEN Guzmán DNP - 02/24/2024 2:38 PM EDTAssociated Problem(s): Essential hypertension BP is well controlled on lisinopril and metoprolol, no changes [facility] Work Phone: 1(364) 380-908004-25-2024 History of Present illness Narrative* CULLEN Guzmán [...] 02/24/24 1:50 PM documented in this [facility] Work Phone: 1(859) 554-177004-19-2024 History of Present illness Narrative* Paty Ortega [...] High flow O2, C-pap, etc. Hospitalized in [facility] with CHF, pleural effusions and elevated [...] being taken. Patient does not see a claims specialist. Eye exam is current. Currently taking: No [...] if BG <150 at HS. 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 Had bilat cataract extraction Dr. Lopez. Sees Dr. Browne in [place] every year routinely.Has blurred vision with low [...] Call if BG consistently <70 or >250. [phone] Continue to check blood sugar 3 times [...] CNP 02/18/24 1:21 PM documented in this [id number] Instructions* Patient Instructions* Robert Dominguez RN - 01/14/2024 11:46 AM EDT How to Contact your Care Team: Provider: Dr. Woo Small MD Clinic Nurse: Luisa Easley RN REFILLS: When in need for refills please call your care team or the office at [phone]. Please include medication name, pharmacy name, and specify 30-day or 90-day supply. Please check with your pharmacy within 24 hours of request for your refill. You must follow up as directed to continue current refills. Thank you! documented in this [id number] History of Present illness Narrative* Aylin Lacy CNP - 01/14/2024 11:00 AM EDT General Cardiology Returning Patient Clinic Visit [facility], Heart & Vascular 01/14/2024 Aylin Lacy CNP [address] [facility] Medical Office [facility] [phone] Patient: Enoc Armando Date of : 1945 (78 y.o.) Wood Technologist: Dr. Small PCP: Ryley Jeter MD Chief Complaint: Transitional care appointment Date of Service: 01/14/2024 Assessment and Plan: Systolic dysfunction with recovery of ejection fraction -Euvolemic on exam -Continue lisinopril 5 mg daily -Continue metoprolol succinate 25 mg daily -Continue Lasix 20 mg twice daily -He is following with nephrology in [place]. He has an upcoming appointment and labs [...] Next scheduled follow up. Aylin Lacy, MSN, [place] LO DRIVER, WAITER/WAITRESS BAR-C, CHAIRMAN PRESIDENT AND CHIEF EXECUTIVE OFFICER, ECG- General Cardiology [facility] History of Present Illness: Enoc Armando is a 78 y.o. man with a past medical history of hypertension, hyperlipidemia, insulin-dependent diabetes mellitus, CKD, smoker, emphysema, chronic hypoxemia and systolic dysfunction. He presents today for transitional care appointment. He was last seen in our office on 10/21/2023 by his primary securities trader Dr. Small. Recent COVID infection at the end of last year and patient was notedto have systolic dysfunction with a ejection fraction ranging from 35 to 45%. He had left ventricular recovery noted on most recent echocardiogram from 11/30/2023, LVEF 63%. He presented to the [facility] on 11/27/2023 with complaints of respiratory [...] 25.50 Types: Cigarettes Smokeless Tobacco Never Allergies: Hdqfymu-chm-upo reductase inhibitors All of the above information [...] to 77 The patient has a prior [place] or stroke diagnosis documented in this [id number] Telephone encounter Note* Telephone Encounter - Ej [...] to Dr. Small for her to sign. [id number] Miscellaneous Notes* Telephone Encounter - Ej Guidry [...] for her to sign. documented in this [id number] Miscellaneous Notes* Quick Note - Ellie Aguilar CNP - 12/01/2023 11:20 AM EST [facility] ENCOUNTER FOR HOME MEDICAL EQUIPMENT PATIENT: Enoc Armando : 1945 Statement of Care: I certify that Enoc Armando is under my care and that I, a Nurse Practitioner, Physician's Newspaper Deliverer, or Resident working with me, had a ogax-go-flhs encounter with this patient yesterday to evaluate and discuss the need for home medical equipment. I certify that based on the findings of this evaluation, which included but was not limited to the baqs-aq-dmlz requirements, the following home medical equipment is [...] Outcome: Partially Met * Quick Note - Nleia Flores RN - 11/30/2023 4:35 AM EST [...] no longer in ICU bed. On 2lpm VT. Critical care will sign off. * CDI Query - Cintia Benitez MD - 11/29/2023 6:23 AM EST Query 2 of 2 Noted 11/27 [facility] PMHx documentation of CKD Clinical Indicators: Test [...] ESRD Thank you, Aubree CRAWFORD,RN Clinical Documentation mold designer After business hours you may contact Ebony Dayana at [phone] (Weekdays until 10 PM and weekends 8 AM -10 PM) * CDI Query - Cintia Benitez MD - 11/29/2023 6:14 AM EST Noted 11/27 [facility] documentation of heart failure. Clinical Indicators: 11/27 [facility]: CHF....-Continue IV Lasix, check I's [...] crackles at base Test results: 11/27: BNP: 57152 Please specify the acuity and type of heart failure in the progress notes. For Example: Acute on chronic systolic CHF POA Chronic systolic CHF, no acute exacerbation Other (please specify) Thank you, Aubree CRAWFORD,RN Clinical Documentation Business Unit Leader After business hours you may contact Ebony Link at [phone] (Weekdays until 10 PM and weekends 8 [...] currently. Priscilla Aranda RDN, LD Dietitian's Office [phone] * Quick Note - Carlita Lazaro RRT [...] - Brief Progress Note PERMANENT 11/27/2023 04:43 [facility] CCU ENOC ARMANDO Date of [...] adjustment * Quick Note - Carlita Lazaro, SALES ENABLEMENT SPECIALIST - 11/27/2023 4:20 AM EST Called by RN due to patient SpO2 87% on 2L. RN states she increased to 4L and patient was 90%. Wentto patient room and patient was diaphoretic and with increased WOB with RR at 37. Patient placed onbipap and Norma Geiger BUSINESS STRATEGIST notified. Patient was then transferred to MICU [...] came to room and replaced on bipap. BUSINESS STRATEGIST came to see patient and request patient [...] Informed RT that patient has arrived from [facility]. Attempt to let dr Pereira aware of arrival from [facility] no answer will leave message. documented in this [id number] Hospital course Narrative* Ellie gAuilar CNP - 12/01/2023 11:03 AM EST [facility] DISCHARGE SUMMARY -- [facility] Enoc Armando Admitted: 11/27/2023 Discharge Date: 12/01/23 PCP Handoff Recommended Outpatient Testing None Results Pending At Discharge None Clinical Summary Enoc Armando is a 77 y.o. male patient of Ryley Jeter MD with history of HTN, HLD, DM Type I, CKD, COPD, chronic hypoxemic respiratory failure who presented to [facility] with respiratory distress . Severe Sepsis [...] Up: Ryley Jeter MD [address] [facility] [phone] Follow up Please call to schedule a [...] on 12/01/23, 11:10 AM documented in this [id number] History of Present illness Narrative* Jody Hammonds, INFORMATION TECHNOLOGY ADMINISTRATOR - 12/01/2023 10:20 AM EST Physical Therapy [...] Static: Supervision, without UE support, with device Hyster Driver - Standing Static: wheeled walker Loss of Balance- Standing Static: (none) Standing Balance - Dynamic: Stand by assist Hyster Driver - Standing Dynamic: wheeled walker Loss of Balance- Standing Dynamic: (none) Bed Mobility Supine to Sit: Contact guard assist, Head of bed elevated Hyster Driver: (none) Skilled Intervention Provided: verbal cues, monitoring patient response with activity, environmental setup/modification, facilitation, provided step by step instructions For: efficient movement, safety during functional tasks, sequencing of movement Resulting in: improved activity tolerance, improved functional independence, improved performance, improved safety, increased upright tolerance for functional tasks Transfers Sit to Stand: Stand by assist Hyster Driver: BUE, wheeled walker Additional Transfer Trial 2: Yes Sit to Stand Trial 2: Stand by assist Hyster Driver Trial 2: wheeled walker, BUE Skilled Intervention [...] O2;) Prior Level of Function Level of [place] - Transfers/Ambulation/Mobility: Independent with functional transfers, Independent with household ambulation, Independent with community ambulation (no AD for in home ambulation, intermitant use of cane in community for longer distances) Level of [place] - ADLs: Independent Level of [place] - Homemaking: ( takes care of all [...] Enoc Armando Admit Date: 11/27/2023 MR #: [id number] : 1945 Current location: [facility] Physicians: Ryley Jeter MD (Family); Britton [...] NST in a week, spoke with his securities trader Dr. Small, who will arrange to have [...] CHF, hypertension, hyperlipidemia, emphysema who presented to [facility] emergency department with a complaint of [...] He was transferred to [facility] for further evaluation and treatment. [...] platelet count 220,000 Allergies: Allergies Allergen Reactions Zdftgdn-Uwj-Cra Reductase Inhibitors Muscle cramps Home Medications: Outpatient [...] Enoc Armando Admit Date: [id number] MR #: [id number] : 1945 Physicians: Ryley Jeter MD (Family); Ger Bansal DO (Referring) Assessment: Patient with 1. Respiratory failure 2. Suspicion for pneumonia 3. Possible congestive heart failure 4. Non-ST elevation [place]. 5. History of COVID-19 infection. Plan: Continue patient on current therapy Continue patient on IV azithromycin Continue on ceftriaxone From [facility] 5 weeks ago patient was status [...] patient is stable. Previous x-ray at [facility] had shown congestive changes and [...] 97.9 F (36.6 C) SpO2: 94% Allergies: Wzzjmgi-kso-buq reductase inhibitors Medications Reviewed. Current Facility-Administered Medications: [...] injection 20 mg, 20 mg, Intravenous, Q12H COUNTS INCLUDE 234 BEDS AT [facility], Iraida Alvarado, TRISTAN, 20 mg at [...] excoriations Musculoskeletal: No joint swelling, non tender OLIVER FILTER OPERATOR: Awake, and Ox3 Wound: No Osborne [...] CNP - 11/30/2023 9:26 AM EST [facility] PROGRESS NOTE Assessment and Plan Enoc Armando is a 77 y.o. male patient of Ryley Jeter MD with history of HTN, HLD, DM Type I, CKD, COPD, chronic hypoxemic respiratory failure who presented to [facility] with respiratory distress . Severe Sepsis [...] treatment for pneumonia and CHF Discharge Location: [facility] Quality Measures DVT Prophylaxis:scd Osborne Catheter: [...] Enoc Armando Admit Date: [id number] MR #: [id number] : 1945 Physicians: Ryley Jeter MD (Family); Ger Bansal DO (Referring) Assessment: Patient with 1. Respiratory failure 2. Suspicion for pneumonia 3. Possible congestive heart failure 4. Non-ST elevation [place]. 5. History of COVID-19 infection. Plan: Continue patient on current therapy Continue patient on IV azithromycin Continue on ceftriaxone From [facility] 5 weeks ago patient was status [...] patient is stable. Previous x-ray at [facility] had shown congestive changes and [...] 97.7 F (36.5 C) SpO2: 97% Allergies: Tljwehf-nqq-lrm reductase inhibitors Medications Reviewed. Current Facility-Administered Medications: [...] Units, 0-30 Units, Subcutaneous, Daily before lunch, aMry Vargas MD, 9 Units at 11/29/23 1200 [...] excoriations Musculoskeletal: No joint swelling, non tender OLIVER FILTER OPERATOR: Awake, and Ox3 Wound: No Osborne [...] Enoc Armando Admit Date: 11/27/2023 MR #: [id number] : 1945 Current location: [facility] Physicians: Ryley Jeter MD (Family); Britton [...] CHF, hypertension, hyperlipidemia, emphysema who presented to [facility] emergency department with a complaint of [...] He was transferred to [facility] for further evaluation and treatment. [...] platelet count 220,000 Allergies: Allergies Allergen Reactions Brvbkfy-Mau-Smp Reductase Inhibitors Muscle cramps Home Medications: Outpatient [...] Enoc Armando Admit Date: 1261205 MR #: [id number] : 1945 Physicians: Ryley Jeter MD (Family); Ger Bansal DO (Referring) Assessment: Patient with 1. Respiratory failure 2. Suspicion for pneumonia 3. Possible congestive heart failure 4. Non-ST elevation [place]. 5. History of COVID-19 infection. Plan: Continue patient on current therapy Continue patient on IV azithromycin Continue on ceftriaxone From [facility] 5 weeks ago patient was status [...] patient is stable. Previous x-ray at [facility] had shown congestive changes and [...] 97.9 F (36.6 C) SpO2: 97% Allergies: Yfslvxu-kjr-enm reductase inhibitors Medications Reviewed. Current Facility-Administered Medications: [...] excoriations Musculoskeletal: No joint swelling, non tender OLIVER FILTER OPERATOR: Awake, and Ox3 Wound: No Osborne Catheter: None IV Access: yes I reviewed Medications. I reviewed Labs. XR Chest 1 View Final Result Bilateral infrahilar patchy opacities, concerning for pneumonia. [employer] Workstation ID: [id number] Echocardiogram complete (Results Pending) [...] MD - 11/29/2023 1:37 PM EST [facility] PROGRESS NOTE Assessment and Plan Enoc Armando is a 77 y.o. male patient of Ryley Jeter MD with history of HTN, HLD, DM Type I, CKD, COPD, chronic hypoxemic respiratory failure who presented to [facility] with respiratory distress . Severe Sepsis [...] Enoc Armando Admit Date: 11/27/2023 MR #: [id number] : 1945 Current location: [facility] Physicians: Ryley Jeter MD (Family); Britton [...] CHF, hypertension, hyperlipidemia, emphysema who presented to [facility] emergency department with a complaint of [...] He was transferred to [facility] for further evaluation and treatment. [...] platelet count 220,000 Allergies: Allergies Allergen Reactions Fdoafio-Tjo-Umb Reductase Inhibitors Muscle cramps Home Medications: Outpatient [...] sodium chloride (PF) 5 mL Intravenous Q8H COUNTS INCLUDE 234 BEDS AT [facility] acetaminophen, dextrose, heparin, ipratropium-albuteroL, [COMPLETED] Insert [...] General Cardiology Inpatient Follow-up Heart & Vascular [facility] 11/28/2023 Iraida Alvarado CNP [facility] Patient: Enoc Armando Date of : [...] - EKG showed SR suggest previous anterior [place], minor ST depression laterally similar to 10/11/2023 [...] is orient x 3. Telemetry: SR Allergies: Loxthyk-gel-saw reductase inhibitors Review of Systems: The following [...] in Direct Patient Care: 15 Narrative: This flexible shaft winder visited the pt., Enoc, while rounding. Introduced [...] of his children and grandchildren. 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 This flexible shaft winder helped the pt explore their feelings about their hospitalization and identify sources of support. This flexible shaft winder provided information about Pastoral Care services and how to contact a flexible shaft winder. Pastoral Care team will remain available to support patient and family PRN. 11/28/23 1116 Visit Background Visit With Patient Visit By Staff Cell Biologist Visit Progression Introduction Visit Requested By Cell Biologist Initiated Visit Source Cell Biologist Initiated Visit Type Inpatient;Rounding Visit Circumstances and Events Routine Visit Visit Length (minutes) 15 Patient's Response to Pastoral Care Appeared to be well-engaged;Expressed Gratitude for Visit Visit Planning PRN;Pt aware to contact Cell Biologist as needed Spiritual Assessment Assessed during this visit Rastafarian Assessment Not assessed during this visit Family [...] Facilitated Interventions Active Listening;Explained Role of the Cell Biologist;Explored thoughts/feelings associated with current hospitalization;Relationships Spiritual/Emotional Outcomes Appreciative;Gratitude Spiritual Plan of Care Continue Healing Process;Receive Spiritual Support Signature: Bipin Claros MDiv Staff Cell Biologist [facility] 24hr On-Call /Adriana On-Call Cell Biologist She/Her/Hers * Cintia Benitez MD - 11/28/2023 10:49 AM EST [facility] PROGRESS NOTE Assessment and Plan Enoc Armando is a 77 y.o. male patient of Ryley Jeter MD with history of HTN, HLD, DM Type I, CKD, COPD, chronic hypoxemic respiratory failure who presented to [facility] with respiratory distress . Severe Sepsis [...] Enoc Armando Admit Date: 1261205 MR #: [id number] : 1945 Physicians: Ryley Jeter MD (Family); Ger Bansal DO (Referring) Assessment: Patient with 1. Respiratory failure 2. Suspicion for pneumonia 3. Possible congestive heart failure 4. Non-ST elevation [place]. 5. History of COVID-19 infection. Plan: Continue patient on current therapy Continue patient on IV azithromycin Continue on ceftriaxone From [facility] 5 weeks ago patient was status [...] patient is stable. Previous x-ray at [facility] had shown congestive changes and [...] 97.7 F (36.5 C) SpO2: 97% Allergies: Xvsygly-jvz-iog reductase inhibitors Medications Reviewed. Current Facility-Administered Medications: [...] excoriations Musculoskeletal: No joint swelling, non tender OLIVER FILTER OPERATOR: Awake, and Ox3 Wound: No Osborne [...] Enoc Armando Date of : 1945 Site: [facility] Provider: Prashant Cesar MD ASSESSMENT/PLAN: Enoc Armando 77 y.o. male transferred last night for resp distress, NSTEMI, hypergllycemia from [facility] Three weeks ago testing positive for Covid and then diagnosed with pneumonia. He has been treated as an outpatient with oral antibiotics. He has been experiencing intermittent midsternal chest pain for the past 3 weeks On arrival to [facility], he was placed on NIPPV with [...] Azithromycin/Ceftriaxone Cardiovascular: Troponin 2361 BNP 16,730 Prior [place] NSTEMI Cardiology consulted Heparin gtt Neuro/Muscular: Alert [...] injection 40 mg 40 mg Intravenous Q12H COUNTS INCLUDE 234 BEDS AT THE [facility] Norma Geiger CNP 40 mg at [...] Enoc Armando Admit Date: 11/27/2023 MR #: [id number] : 1945 Current location: [facility] Physicians: Ryley Jeter MD (Family); Britton [...] CHF, hypertension, hyperlipidemia, emphysema who presented to [facility] emergency department with a complaint of [...] He was transferred to [facility] for further evaluation and treatment. [...] platelet count 220,000 Allergies: Allergies Allergen Reactions Mgchxrd-Lwc-Ogk Reductase Inhibitors Muscle cramps Home Medications: Outpatient [...] Oral Daily furosemide 20 mg Intravenous Q12H COUNTS INCLUDE 234 BEDS AT THE [facility] insulin glargine 14 Units Subcutaneous Nightly lispro insulin 0-15 Units Subcutaneous at bedtime insulin lispro 0-30 Units Subcutaneous QAM AC insulin lispro 0-30 Units Subcutaneous Daily before lunch insulin lispro 0-30 Units Subcutaneous Before dinner ipratropium-albuteroL 3 mL Inhalation Q4H COUNTS INCLUDE 234 BEDS AT THE [facility] metoprolol succinate 25 mg Oral Daily sodium chloride (PF) 5 mL Intravenous Q8H COUNTS INCLUDE 234 BEDS AT THE [facility] acetaminophen, dextrose, heparin, ipratropium-albuteroL, [COMPLETED] Insert [...] Enoc Armando Date of : 1945 Site: [facility] Provider: Prashant Cesar MD ASSESSMENT/PLAN: Enoc Armando 77 y.o. male transferred last night for resp distress, NSTEMI, hypergllycemia from [facility] Three weeks ago testing positive for Covid and then diagnosed with pneumonia. He has been treated as an outpatient with oral antibiotics. He has been experiencing intermittent midsternal chest pain for the past 3 weeks On arrival to [facility], he was placed on NIPPV with [...] 30% Cardiovascular: Troponin 2361 BNP 16,730 Prior [place] NSTEMI Cardiology consulted Heparin gtt Neuro/Muscular: Alert [...] mL Intravenous Q8H DIDI Juanjo, Norma Marin, [employer] 5 mL at 11/27/23 0515 And sodium chloride 0.9% (NS) 0-150 mL/hr Intravenous PRN Norma Geiger CNP [x] Medications reviewed. [x] Labs reviewed. Pertinent findings noted: [x] Radiology reviewed. Pertinent findings noted: [] Pathology reviewed. Pertinent findings noted: Family Update/ Code Status: Full code Laboratory and Additional Data Reviewed: Reviewed 11/27/23 8:35 AM: Laboratory and Microbiology documented in this [id number] Consult note* Domenica Torre RN - 11/30/2023 [...] Balance - Static: Supervision, without UE support Hyster Driver - Standing Static: (no device) Standing Balance - Dynamic: Stand by assist, Contact guard assist (without device; sba/ supervisionwith rollator) Hyster Driver - Standing Dynamic: (trialed with and without rollator) Loss of Balance- Standing Dynamic: (left path deviation unsteadiness without device; no LOB with use of rollator and gait steadiness much improved.) Bed Mobility Rolling: Modified independent, Head of bed flat Supine to Sit: Modified independent, Head of bed flat Sit to Supine: (NT: pt up in chair post PT session) Hyster Driver: (none) Transfers Sit to Stand: Stand by assist Bed to Chair: Stand by assist, Contact guard assist (no device) Stand Pivot Transfers: Stand by assist, Contact guard assist (no device) Hyster Driver: (no AD) Additional Transfer Trial 2: Yes Sit to Stand Trial 2: Stand by assist (from chair with karin ue support) Hyster Driver Trial 2: BUE Additional Transfer Trial 3: Yes Sit to Stand Trial 3: Stand by assist (from locked rollator seat) Hyster Driver Trial 3: (locked rollator handles) Gait/Locomotion Gait [...] O2;) Prior Level of Function Level of [place] - Transfers/Ambulation/Mobility: Independent with functional transfers, Independent with household ambulation, Independent with community ambulation (no AD for in home ambulation, intermitant use of cane in community for longer distances) Level of [place] - ADLs: Independent Level of [place] - Homemaking: ( takes care of all [...] at discharge. Pt declined PT services at in. Pt up in chair post PT session. [...] Oral Daily furosemide 20 mg Intravenous Q12H COUNTS INCLUDE 234 BEDS AT THE [facility] insulin glargine 16 Units Subcutaneous Nightly [...] Estimated Energy Needs Total Energy Estimated Needs: 9838-7838 kcal/d Method for Estimating Needs: 25-30 kcal/kg current wt Total Protein Estimated Needs: 65 g/d Method for Estimating Needs: 1 g/kg current wt Grazyna Obregon RDN, LD, CLC Office * Chaya Mayfield RN - 11/29/2023 9:30 AM ESTAssociated Order(s): IP CONSULT TO EXERCISE PHYSIOLOGIST CERTIFIED Met with pt for diabetes education. States [...] 4:07 PM ESTAssociated Order(s): IP CONSULT TO CIRCULAR SAWYER STONE See earlier consult * Gaudencio Pabon MD - 11/27/2023 2:50 PM EST Patient Name: Enoc Armando MR #: [id number] : 1945 Physicians: Ryley Jeter MD (Family); [...] infection, and then was admitted in [facility]. At that time he was having respiratory failure, and also was having bilateral infiltrates and was found with echocardiogram with ejection fraction of 35%. At [facility], patient was treated with BiPAP, ceftriaxone, [...] failure, [place] [address], And troponin of 9000. Patient also had [...] Information: I have reviewed the patient's allergies. Cvaucev-ctl-jal reductase inhibitors Review of Systems: Review of [...] Bilateral infrahilar patchy opacities, concerning for pneumonia. [email or web address] Workstation ID: [id number] Echocardiogram complete (Results Pending) [...] Possible congestive heart failure 4. Non-ST elevation [place]. 5. History of COVID-19 infection. Plan. Continue patient on current therapy Patient currently on IV azithromycin Patient on ceftriaxone From [facility] 5 weeks ago patient was status [...] patient is stable. Previous x-ray at [facility] had shown congestive changes and [...] Enoc Armando Admit Date: 11/27/2023 MR #: [id number] : 1945 Current location: [facility] Physicians: Ryley Jeter MD (Family); Britton [...] CHF, hypertension, hyperlipidemia, emphysema who presented to [facility] emergency department with a complaint of [...] He was transferred to [facility] for further evaluation and treatment. [...] platelet count 220,000 Allergies: Allergies Allergen Reactions Exnvzka-Npj-Kub Reductase Inhibitors Muscle cramps Home Medications: Outpatient [...] Q12H DIDI ipratropium-albuteroL 3 mL Inhalation Q4H COUNTS INCLUDE 234 BEDS AT THE [facility] metoprolol succinate 25 mg Oral Daily [...] patient with you. Mary Vargas MD * [place], Julia Barry MD - 11/27/2023 6:35 AM ESTAssociated Order(s): IP CONSULT TO CARDIOLOGY INPATIENT CONSULT NOTE 11/27/2023 ASSESSMENT/PLAN NSTEMI, type II White count 20,000, troponin 9973, 9973; lactic acid elevated EKG personally reviewed showed sinus rhythm suggest previous anterior [place] minor ST depression laterally similar to 10/11/2023 [...] testing positive initially he was hospitalized at [facility] on BiPAP. Communication is a bit [...] Information: I have reviewed the patient's allergies. Kgrfmho-bey-pzg reductase inhibitors Home Medications: Outpatient Medications as [...] Enoc Armando Admit Date: 1261205 MR #: [id number] : 1945 Physicians: Ryley Jeter MD (Family); Ger Bansal DO (Referring) Julia Parker MD documented in this [id number] History and physical note* Norma Geiger CNP - 11/27/2023 3:12 AM EST [facility] HISTORY AND PHYSICAL -- [facility] Patient Name: Enoc Armando : 1945 MR #: [id number] Admit Date: 11/27/2023 Physicians: Ryley Jeter MD (Family); Ger Bansal DO (Referring) Enoc Armando is a 77 y.o. male patient of Ryley Jeter MD with history of HTN, HLD, DM Type I, CKD, COPD, chronic hypoxemic respiratory failure who presented to [facility] with respiratory distress . Severe Sepsis [...] DKA protocol. Consult endocrinology, DM education, and mud car worker Essential Hypertension Dyslipidemia Continue amlodipine, metoprolol, ezetimibe [...] of Ryley Jeter MD, who presented to [facility] with respiratory distress. The patient [...] discomfort with associated diaphoresis. On arrival to [facility], he was placed on NIPPV with [...] Information I have reviewed the patient's allergies. Gbmfjgs-mlb-foh reductase inhibitors Home Medications Home medications were [...] chronic hypoxemic respiratory failure who presented to [facility] with respiratory distress . 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 EMS reports an O2 level in [...] ask the patient if he had a securities trader and he said yes. Patient sees Dr. Small at [place] and is scheduled to have a stress test next week. Patient has denied any chest pain his entire time here. I did speak to the securities trader on-call Dr. Parker and she agreed with a dose of IV Lasix and starting the patient on heparin which will be done. Patient is improved at present but we will continue to monitor the patient until a bed becomes available at [place]. The patient has been accepted by the [...] History Past Medical History: Diagnosis Date Diabetes (CMS/[facility]) History reviewed. No pertinent surgical history. Family [...] performed using a different testing methodology at [facility] than at other [facility]. Direct result comparisons should only [...] is performed using different testing methodology at [facility] than at other [facility]. Direct result comparisons should only [...] performed using a different testing methodology at [facility] than at other [facility]. Direct result comparisons should only [...] TROPONIN I, HIGH SENSITIVITY ED Course & [facility] ED Course as of 11/27/23105Nov 26, 2023 2142 Twelve-lead EKG interpreted by myself at 2120 1 sinus tachycardia at 113 2 left axis deviation3 nonspecific ST-T wave changes [MS] 2249 Troponin I, High Sensitivity(!!): 3,473 [MS] ED Course User Index [MS] Ger Bansal DO Diagnoses as of 11/27/23105 NSTEMI (non-ST elevated myocardial infarction) ([facility]/HCC) MADONNA (acute kidney injury) (CMS/HCC) Acute combined [...] Ghassan Tovar 11/26/2023 10:02 PM Dictation workstation: [id number] Medical Decision Making Patient will be transferred in stable condition to [facility] in [place]. Procedure Critical Care Performed by: Ger Bansal [...] DO 11/27/23 0119 documented in this 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 EMS reports an O2 level in [...] ask the patient if he had a securities trader and he said yes. Patient sees Dr. Small at [place] and is scheduled to have a stress test next week. Patient has denied any chest pain his entire time here. I did speak to the securities trader on-call Dr. Parker and she agreed with a dose of IV Lasix and starting the patient on heparin which will be done. Patient is improved at present but we will continue to monitor the patient until a bed becomes available at [place]. The patient has been accepted by the [...] History Past Medical History: Diagnosis Date Diabetes ([facility]) History reviewed. No pertinent surgical history. Family [...] performed using a different testing methodology at [facility] than at other [facility]. Direct result comparisons should only [...] is performed using different testing methodology at [facility] than at other [facility]. Direct result comparisons should only [...] performed using a different testing methodology at [facility] than at other [facility]. Direct result comparisons should only [...] 01/27/24 0106 NSTEMI (non-ST elevated myocardial infarction) ([facility]) MADONNA (acute kidney injury) ([facility]) Acute combined systolic and diastolic congestive heart failure ([facility]) Type 1 diabetes mellitus with other specified complication ([facility]) XR chest 1 view Final Result Pulmonary vascular congestive change and edema and small bilateral pleural effusions. There is asymmetric opacity in the right lower lung concerning for superimposed pneumonia. 10 mm nodular opacity at the left lung base; follow-up dedicated CT chest is recommended to exclude underlying pulmonary nodule. MACRO: None Signed by: Ghassan Tovar 11/26/2023 10:02 PM Dictation workstation: [id number] Medical Decision Making Patient will be transferred in stable condition to [facility] in [place]. Procedure Critical Care Performed by: Ger Bansal [...] another facility Ger Bansal DO 11/27/23 0119 [facility] Work Phone: 1(175) 657-684501-02-2024 History of Present illness Narrative* Mary Vargas MD - 11/02/2023 4:50 PM EST Patient called and reported that he needs Humalog Rx changed due to formulary change. Rx mailed forAdmelog Solostar 15 ml, 11 refills. CD documented in this [id number] History of Present illness Narrative* Woo Small MD - 10/21/2023 9:00 AM EST General Cardiology New Patient Clinic Consult [facility], Heart & Vascular 10/21/2023 Woo Small MD [address] [place] [address] Medical [place] [id number] Patient: Enoc Armando Date of : 1945 [...] 6 months (around 04/21/2024). Woo Small MD, [facility] Non-Invasive Cardiology [facility] P:[phone] F:[phone] History of Present Illness: Enoc Armando is a 77 y.o. man with a past medical history of insulin-dependent diabetes for 30 years, history of tobacco use, recent COVID infection with systolic dysfunction ejection fraction ranging from 35 to 45% who presents today to establish care. Patient states that he was critically ill andhospitalized at [facility], on BiPAP. Prior to hospitalization patient [...] 25.50 Types: Cigarettes Smokeless Tobacco Never Allergies: Bwmzwxg-iuo-vio reductase inhibitors All of the information has [...] ., Disp: , Rfl: [facility]XYGEN[facility]IR [facility], Inhale 2 L/min See Admin Instructions ., [...] appropriate conversation Cardiovascular Studies: Echocardiogram reviewed from , 10/11/2023 moderately decreased ejection fraction estimated at [...] Total Cholesterol: 156 mg/dL documented in this [id number] Instructions* Patient Instructions* Luisa Easley RN - 10/21/2023 8:54 AM EST How to Contact your Care Team: Provider: Dr. Woo Small MD Clinic Nurse: Luisa Easley RN REFILLS: When in need for refills please call your care team or the office at [phone]. Please include medication name, pharmacy name, and [...] questions please contact your care team or [phone]. documented in this [id number] Nurse Note* Moody Gorman RN - 10/13/2023 7:25 PM EST Pt IVs removed intact, home O2 has just been delivered and family given instruction by [employer]. Pt leaving by wheelchair to discharge doors, daughter driving. [facility]2023 Nurse Note* Moody Gorman RN - 10/13/2023 7:25 PM EST Pt IVs removed intact, home O2 has just been delivered and family given instruction by [employer]. Pt leaving by wheelchair to discharge doors, daughter driving. * Gnei Lynne RN - 10/13/2023 3:56 PM EST [...] - 10/11/2023 10:00 AM EST , Alice ([phone]), called and requesting and update. Update provided. [...] 112, RR 24. documented in this [facility] Work Phone: 1(520) 533-292212-13-2023 Nurse Note* Geni Lynne RN - 10/13/2023 3:56 PM EST Discharge instructions reviewed with pt. Printed and verbal education given on covid, chf, and homeoxygen use/safety. Pt verbalized understanding of all instructions. Walker rx written by dr rivera. Awaiting home oxygen set up. [facility]2023 Hospital Discharge instructions* Discharge Instr - Other [...] or approved for treating a specific patient. [employer] and its affiliatesdisclaim any warranty or liability relating to this information or the use thereof. The use of thisinformation is governed by the Terms of Use, available at https://www.[employer].com/en/know/iyskpphx-qdyfrjrdzcfgw-kzmpr Copyright 2022 [employer] and its affiliates and/or licensors. All rights [...] by the Terms of Use, available at https://www.[employer].com/en/know/hhkpqmsx-xpetavwngxbia-astmj Copyright 2022 [employer] and its affiliates and/or licensors. All rights [...] Do not take any other prescription drugs, wvpm-wif-nkfrfyk (OTC) drugs, herbals, or diet aids without [...] diet are needed? Ask your doctor or mud car worker what diet is best for you. The [...] or approved for treating a specific patient. [employer] and its affiliatesdisclaim any warranty or liability relating to this information or the use thereof. The use of thisinformation is governed by the Terms of Use, available at https://www.OnBeep.com/en/know/bengpbzj-elegsgmtrmgwq-opnkm Copyright 2022 [employer] and its affiliates and/or licensors. All rights reserved. documented in this [facility] Work Phone: [phone] 331-410012-13-2023 Miscellaneous Notes* Documentation Clarification Note - Vera Mari MD - 10/13/2023 3:06 PM EST PATIENT: ENOC ARMANDO : 1945 ADMIT DATE: 10/11/2023 1:08 AM DISCH DATE: RESPONDING PROVIDER #: [id number] PROVIDER RESPONSE TEXT: Sepsis with associated respiratory [...] hypoxia], hypertensive emergency, hyperglycemia, and elevated troponin. Architectural Renderer consult documents Acute hypoxemic respiratory failure. Treatment: [...] with current management. documented in this [facility] Work Phone: [phone] 243-195412-13-2023 Note* Documentation Clarification Note - Vera Mari MD - 10/13/2023 3:06 PM EST PATIENT: ENOC ARMANDO : 1945 ADMIT DATE: 10/11/2023 1:08 AM DISCH DATE: RESPONDING PROVIDER #: [id number] PROVIDER RESPONSE TEXT: Sepsis with associated respiratory [...] hypoxia], hypertensive emergency, hyperglycemia, and elevated troponin. Architectural Renderer consult documents Acute hypoxemic respiratory failure. Treatment: [...] by: VERA RIVERA MD 10/13/2023 3:05 PM [facility] Work Phone: [phone] History of Present illness Narrative* JENNIFER Almanza [...] Prior Function Per Pt/Caregiver Report Level of [place]: Independent with ADLs and functional transfers, Independent [...] length Comments/Distance (ft) 1: 88ft Outcome Measures: [facility] Basic Mobility Turning from your back [...] Bathroom Equipment: None Prior Function: Level of [place]: Independent with ADLs and functional transfers, Independent [...] Function: Gross Grasp: Functional Coordination: Functional Outcome Measures:[facility] Daily Activity Putting on and taking [...] 10/13/23 Expected End: 10/27/23 * Phylicia Reyes, [place] LO DRIVER-CITRIX CONSULTANT, DNP - 10/13/2023 10:18 AM EST Subjective Data: Patient examined and denies any chest pain/pressure/discomfort, palpitations, worsening SOB, dizziness, or lower extremity edema. He does not currently follow with a Wood Technologist. Overnight Events: None Objective Data: Last Recorded [...] result verified on 10/11/2023 0209 on specimen/case [id number] called with component [facility] for procedure Troponin I, High Sensitivity, [...] 13-18 <7.5 7-12 <8.0 0- 6 7.5-8.5 [place]. Diabetes Care 33(S1), Nov 2009. 02/12/2023 08:57 AM 7.7 % Final Comment: Diagnosis of Diabetes-Adults Non-Diabetic: < or = 5.6% Increased risk for developing diabetes: 5.7-6.4% Diagnostic of diabetes: > or = 6.5% . Monitoring of Diabetes Age (y) Therapeutic Goal (%) Adults: >18 <7.0 Pediatrics: 13-18 <7.5 7-12 <8.0 0- 6 7.5-8.5 [place]. Diabetes Care 33(S1), Nov 2009. [...] Assessment Information (1): baseline creat 1.6-1.9 per windows admin; A1C 7.4 09/27, 7.6 8/l Nutrition Diagnosis [...] result verified on 10/11/2023 0209 on specimen/case [id number] called with component [facility] for procedure Troponin I, High Sensitivity, [...] 13-18 <7.5 7-12 <8.0 0- 6 7.5-8.5 [place]. Diabetes Care 33(S1), Nov 2009. 02/12/2023 08:57 AM 7.7 % Final Comment: Diagnosis of Diabetes-Adults Non-Diabetic: < or = 5.6% Increased risk for developing diabetes: 5.7-6.4% Diagnostic of diabetes: > or = 6.5% . Monitoring of Diabetes Age (y) Therapeutic Goal (%) Adults: >18 <7.0 Pediatrics: 13-18 <7.5 7-12 <8.0 0- 6 7.5-8.5 [place]. Diabetes Care 33(S1), Nov 2009. [...] around 1.8,arthritis and smoking. Came to ED [facility] on 10/11/2023 complaining of shortness [...] should have [facility] as an outpatient. - Due to reduced [...] 10/11/2023 6:18:47 PM Transthoracic Echo (TTE) [place] [id number], TRANSTHORACIC ECHOCARDIOGRAM REPORT Patient Name: ENOC ARMANDO Reading Physician: [id number] Jose Enrique Molina MD Study Date: 10/11/2023 Ordering Provider: [id number] VERA RIVERA MRN/PID: [id number] Fellow: Nurse: Jana See RN Date of /Age: 2 1945 / 77 years Newswriter: Cecilio Gabriel RDCS Gender: M Additional Staff: Height: 170.18 cm Admit Date: Weight: 71.67 kg Admission Status: Inpatient - Routine BSA: 1.83 m2 Department Location: [address]-ICU Blood Pressure: 141 /71 mmHg Study Type: TRANSTHORACIC ECHO (TTE) COMPLETE Diagnosis/ICD: Acute on chronic systolic (congestive) heart failure (CHF)-I50.23 CPT Codes: Echo Complete w Full Doppler-73258 Study Detail: The following Echo studies were [...] LA Area A2C: 16.2 cm2 LA Major Carrier A4C: 5.3 cm LA Major Carrier A2C: 5.0 cm LA Volume Index: 23.9 ml/m2 LA Vol A4C: 43.7 ml LA Vol A2C: 43.3 ml LV SYSTOLIC FUNCTION BY 2D PLANIMETRY (MOD): Normal Ranges: EF-A4C View: 45.6 % (>=55%) EF-A2C View: 40.9 % EF-Biplane: 44.2 % AORTIC VALVE: Normal Ranges: LVOT Diameter: 1.80 cm (1.8-2.4cm) RIGHT VENTRICLE: RV Basal 3.49 cm RV Mid 2.45 cm RV Major 7.8 cm [id number] Jose Enrique Molina MD Electronically signed on 10/11/2023 at 9:43:19 AM Final XR chest 1 view Narrative: Interpreted By: Kahlil Fagan, STUDY: XR CHEST 1 VIEW; 10/11/2023 1:30 am INDICATION: Signs/Symptoms:Cough. COMPARISON: Chest radiograph 11/04/2012 ACCESSION NUMBER(S): [id number] ORDERING CLINICIAN: AURY ROUSE FINDINGS: SUPPORT DEVICES: [...] Kahlil Fagan 10/11/2023 1:33 AM Dictation workstation: [id number] Physical Exam Constitutional: Appearance: Normal appearance. HENT: [...] on sliding scale insulin. A1c 7.4 appreciate forestry supervisor input. Oxygen as tolerated, currently liters. PT, OT consult for generalized weakness. Vitamin D, zinc DVT prophylaxis on heparin. CODE STATUS full. Disposition in 24 to 48 hours. Total time spent 35 minutes. Vera Rivera MD * Consuelo Fischer RN - 10/11/2023 2:04 PM EST 10/11/23 1715 Discharge Planning Living Arrangements Spouse/significant other Support [...] No Patient Choice Provider Choice list and [facility] website (https://medicare.gov/care-compare#search) for post-acute Quality and Resource [...] follow. Consuelo Fischer BSN/RN-TCC documented in this [facility] Work Phone: [phone] Hospital course Narrative* Vera Mari MD - [...] Your Medications These medications were sent to [facility] [address] [address] metoprolol succinate XL 25 mg 24 hr tablet These medications were sent to [facility] [address] [place] [id number] Hours: 8 AM to 5:30 Mon-Fri, 8 [...] up with home oxygen. 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 Clinically stable. Patient also had elevated troponin secondary due to above seen by cardiology, Dr. De Dios, started on metoprolol, aspirin initially which which can be changed to 81 mg daily. Jaundice and Zetia also were started. Patient also has seen Dr. Albert, windows admin for acute on chronic kidney disease secondary [...] Department Center 02/24/2024 1:45 PM Maricruz Albert, [place] LO DRIVER-CITRIX CONSULTANT, [facility] [id number] [facility] Dr. Albert, nephrology in [address] De Dios, cardiology in 2 to 4 weeks. Total discharge time 40 minutes. Vera Rivera MD [facility] Phone: [phone] Nurse Note* Moody Gorman RN - 10/13/2023 12:27 PM EST Pt is AAO. He is using his call light today when he wants to use the bathroom. He has had loose stools, but less frequent. [facility] Work Phone: [phone] Nurse Note* Moody Gorman RN - 10/12/2023 5:25 PM EST Pt is alert to situation at this time and able to explain his diagnosis, but still impulsive when moving and unsteady. [facility] Work Phone: [phone] Nurse Note* Moody Gorman RN - 10/12/2023 4:42 PM EST Pt continues to try and leave the bed and chair without his call light. When asked what he needs orwhere he wants to go, pt is unable to articulate his motivation except the general desire to move around. Repeated re-education is not working. [facility] Work Phone: [phone] 115-862612-12-2023 Nurse Note* Moody Gorman RN - 10/12/2023 3:45 PM EST Answered chair alarm. Pt is becoming increasingly confused and restless in general. He is aware of himself and other people, but is becoming impulsive in getting out of bed or his chair. Pt ambulatedto the bathroom, O2 increased to 5L for movement per RT. Pt assisted back to bed, bed alarm activated. [facility] Work Phone: [phone] Nurse Note* Moody Gorman RN - 10/12/2023 8:00 AM EST Pt is AAO, uses his call light appropriately. Pt currently on RA. Pt c/o weakness in his legs, but is able to sit up at the edge of the bed and walk with a walker to lean on for stability. [facility] Work Phone: [phone] 564-326112-12-2023 Plan of care note* Care Plan - [...] to address these barriers include repeated re-orientation. [facility] Work Phone: [phone] 884-219612-12-2023 Plan of care note* Care Plan - Jody Ball RN - 10/12/2023 5:59 AM EST The clinical goals for the shift include Blood sugar will return to normal limits by the end of theshift Over the shift, Pt tolerated BIPAP well. No signs of respiratory distress. [facility]12-11-2023 Consult note* Tyrone Zimmerman MD - 10/11/2023 [...] around 1.8,arthritis and smoking. Came to ED [facility] on 10/11/2023 complaining of shortness [...] result verified on 10/11/2023 0209 on specimen/case [id number] called with component [facility] for procedure Troponin I, High Sensitivity, [...] 13-18 <7.5 7-12 <8.0 0- 6 7.5-8.5 [place] [employer]. Diabetes Care 33(S1), Nov 2009. 02/12/2023 08:57 AM 7.7 (A) % Final Comment: Diagnosis of Diabetes-Adults Non-Diabetic: < or = 5.6% Increased risk for developing diabetes: 5.7-6.4% Diagnostic of diabetes: > or = 6.5% . Monitoring of Diabetes Age (y) Therapeutic Goal (%) Adults: >18 <7.0 Pediatrics: 13-18 <7.5 7-12 <8.0 0- 6 7.5-8.5 [place]. Diabetes Care 33(S1), Nov 2009. [...] Family history unknown: Yes Allergies: Prednisone and Zqjbpkz-irs-bif reductase inhibitors Inpatient Medications: Scheduled medications Medication [...] around 1.8,arthritis and smoking. Came to ED [facility] on 10/11/2023 complaining of shortness [...] possible, have [facility] as an outpatient. - Due to reduced [...] Code Status: Full Code Tyrone Zimmerman MD [facility] Work Phone: [phone] Consult note* Tyrone Zimmerman MD - 10/11/2023 [...] around 1.8,arthritis and smoking. Came to ED [facility] on 10/11/2023 complaining of shortness [...] result verified on 10/11/2023 0209 on specimen/case [id number] called with component [facility] for procedure Troponin I, High Sensitivity, [...] 13-18 <7.5 7-12 <8.0 0- 6 7.5-8.5 [place]. Diabetes Care 33(S1), Nov 2009. 02/12/2023 08:57 AM 7.7 (A) % Final Comment: Diagnosis of Diabetes-Adults Non-Diabetic: < or = 5.6% Increased risk for developing diabetes: 5.7-6.4% Diagnostic of diabetes: > or = 6.5% . Monitoring of Diabetes Age (y) Therapeutic Goal (%) Adults: >18 <7.0 Pediatrics: 13-18 <7.5 7-12 <8.0 0- 6 7.5-8.5 [place]. Diabetes Care 33(S1), Nov 2009. [...] has a past medical history of Diabetes ([facility]). Past Surgical History: He has no past surgical history on file. Social History: He reports that he has been smoking cigarettes. He has never used smokeless tobacco. He reports that he does not drink alcohol and does not use drugs. Family History: Family History Family history unknown: Yes Allergies: Prednisone and Ljtxili-tkz-ozz reductase inhibitors Inpatient Medications: Scheduled medications Medication [...] around 1.8,arthritis and smoking. Came to ED [facility] on 10/11/2023 complaining of shortness [...] possible, have [facility] as an outpatient. - Due to reduced [...] 12:13 PM ESTAssociated Order(s): IP CONSULT TO CIRCULAR SAWYER STONE Reason For Consult Acute respiratory failure History [...] has a past medical history of Diabetes ([facility]). Surgical History He has no past surgical history on file. Social History He reports that he has been smoking cigarettes. He has never used smokeless tobacco. He reports that he does not drink alcohol and does not use drugs. Family History Family History Family history unknown: Yes Allergies Prednisone and Uvgjzwj-ali-tex reductase inhibitors Review of Systems A full [...] Ayanna Albert DO documented in this [facility] Work Phone: [phone] 647-512812-11-2023 Consult note* Ayanna Albert DO - 10/11/2023 12:13 PM ESTAssociated Order(s): IP CONSULT TO CIRCULAR SAWYER STONE Reason For Consult Acute respiratory failure History [...] Family history unknown: Yes Allergies Prednisone and Pltpvvs-mvx-kqe reductase inhibitors Review of Systems A full [...] procedures Principal Problem: COVID-19 Ayanna Albert DO [facility] Work Phone: [phone] Plan of care note* Care Plan - Vera Mari MD - 10/11/2023 11:49 AM EST Patient's reviewed. Currently on 5 L of oxygen by nasal cannula, sitting in bed. wants him to be full code with DNI. Continue with current management. [facility] Work Phone: [phone] Nurse Note* Geni Wall RN - 10/11/2023 10:00 AM EST , Alice ([phone]), called and requesting and update. Update provided. She is Enoc's POA and requests in the event of cardiac he receive CPR and life sustaining medications. She is unsure if she wants him intubated and wants more time to think about it. She reported she will be visiting [place] today around 11am. [facility]12-11-2023 Nurse Note* Zoila Mota RN - [...] Patient currently sleeping, HR 112, RR 24. [facility] Work Phone: [phone] 193-626012-11-2023 History and physical note* Praful Pineda MD [...] Family history unknown: Yes Allergies Prednisone and Mxluvgb-fxo-fuq reductase inhibitors Medications Prior to Admission Medication [...] Straw, Yellow Appearance, Urine Clear Clear Specific [place], Urine 1.014 1.005 - 1.035 pH, Urine [...] Signs/Symptoms:Cough. COMPARISON: Chest radiograph 11/04/2012 ACCESSION NUMBER(S): [id number] ORDERING CLINICIAN: AURY ROUSE FINDINGS: SUPPORT DEVICES: [...] Kahlil Fagan 10/11/2023 1:33 AM Dictation workstation: [id number] Assessment/Plan 77-year-old male, smoker, with a past [...] are not fully corrected) Praful Pineda MD [facility] Work Phone: [phone] History and physical note* Praful Pineda MD [...] labetalol [facility] and management. Patient [...] Family history unknown: Yes Allergies Prednisone and Mjckihx-eaa-prn reductase inhibitors Medications Prior to Admission Medication [...] Straw, Yellow Appearance, Urine Clear Clear Specific [place], Urine 1.014 1.005 - 1.035 pH, Urine [...] Signs/Symptoms:Cough. COMPARISON: Chest radiograph 11/04/2012 ACCESSION NUMBER(S): [id number] ORDERING CLINICIAN: AURY ROUSE FINDINGS: SUPPORT DEVICES: [...] Kahlil Fagan 10/11/2023 1:33 AM Dictation workstation: [id number] Assessment/Plan 77-year-old male, smoker, with a past [...] corrected) Praful Pineda MD [facility] Work Phone: [phone] Emergency department Note* Aury Rouse DO - [...] ED and establish an IV.Patient admits to 61-rgvb-bieg history of cigarette use and currently smokes 1 pack/day. Activity makes his symptoms worse rest helps to some extent. History provided by: EMS personnel and patient park interpreter used: No Physical Exam Vitals and nursing note reviewed. Constitutional: General: He is awake. He is in acute distress. Appearance: Normal appearance. He is overweight. He is ill-appearing. HENT: Head: Normocephalic and atraumatic. Right Ear: External ear normal. Decreased hearing noted. Left Ear: External ear normal. Decreased hearing noted. Nose: Congestion and rhinorrhea present. Rhinorrhea is clear. Mouth/Throat: Lips: [place]. Mouth: Mucous membranes are moist. Pharynx: Oropharynx [...] specimens andhas been validated for use at [facility]. Negative results do not preclude COVID-19 [...] in ng/mL Fibrinogen Equivalent Units (FEU). Per director of nursing's instructions for use, a value of less than 500 ng/mL (FEU) may help to exclude DVT or PE in outpatients when the assay is used with a clinical pretest probability assessment.([facility] must utilize and document eCalc 'Wells [...] performed using a different testing methodology at [facility] than at other [facility]. Direct result comparisons should only [...] performed using a different testing methodology at [facility] than at other [facility]. Direct result comparisons should only [...] is performed using different testing methodology at [facility] than at other [facility]. Direct result comparisons should only [...] Color, Urine Yellow Appearance, Urine Clear Specific [place], Urine 1.014 pH, Urine 5.0 Protein, Urine [...] and has been validated for use at [facility]. Negative results do not preclude Influenza A/B infections, and should not be used as the sole basis for diagnosis, treatment, or other management decisions. IfInfluenza A/B and RSV PCR results are negative, testing for Parainfluenza virus, Adenovirus and Metapneumovirus is routinely performed for [facility] pediatric oncology and intensive care inpatients, and isavailable on other patients by placing an add-on request. RSV PCR - Normal RSV PCR Not Detected Narrative: This assay is an FDA-cleared, in vitro diagnostic nucleic acid amplification test for the detectionof RSV from nasopharyngeal specimens, and has been validated for use at [facility]. Negative results do not preclude RSV infections, and should not be used as the sole basis for diagnosis, treatment, or other management decisions. If Influenza A/B and RSV PCR results are negative, testing for Parainfluenza virus, Adenovirus and Metapneumovirus is routinely performed for pediatric oncology and intensive care inpatients at [facility], and is available on other patients by [...] Abnormality Status --------- ------ Urinalysis with Reflex M...[[id number]] Abnormal Final result Extra Urine Orosco Tube[[id number]] Final result Please view results for these tests on the individual orders. TROPONIN SERIES- (INITIAL, 1 HR) Narrative: The following orders were created for panel order Troponin I Series, High Sensitivity (0, 1 HR). Procedure Abnormality Status --------- ------ Troponin I, High Sensiti...[[id number]] Abnormal Final result Troponin, High Sensitivi...[[id number]] Abnormal Final result Please view results for [...] Kahlil Fagan 10/11/2023 1:33 AM Dictation workstation: [id number] Critical Care Performed by: Aury Rouse DO [...] Q waves inthe anterior precordial leads. The TN interval is 148 ms. QRS durations 82 [...] did help a little. documented in this [facility] Work Phone: [phone] Emergency department Triage note* VANDANA Cosby - 10/11/2023 1:08 AM EST Pt brought in via EMS for fevers and chills. Pt reports being ill for the last 2-3 days. Pt states that he has been having fevers, chills, weakness, fatigue, headaches, body aches with some SOB. Pt was given a breathing treatment in route and states that it did help a little. [facility] Work Phone: [phone]) [phone] Physician Emergency department Note* Aury Rouse DO [...] ED and establish an IV.Patient admits to 88-rouy-uvtg history of cigarette use and currently smokes 1 pack/day. Activity makes his symptoms worse rest helps to some extent. History provided by: EMS personnel and patient park interpreter used: No Physical Exam Vitals and nursing note reviewed. Constitutional: General: He is awake. He is in acute distress. Appearance: Normal appearance. He is overweight. He is ill-appearing. HENT: Head: Normocephalic and atraumatic. Right Ear: External ear normal. Decreased hearing noted. Left Ear: External ear normal. Decreased hearing noted. Nose: Congestion and rhinorrhea present. Rhinorrhea is clear. Mouth/Throat: Lips: [place]. Mouth: Mucous membranes are moist. Pharynx: Oropharynx [...] specimens andhas been validated for use at [facility]. Negative results do not preclude COVID-19 [...] in ng/mL Fibrinogen Equivalent Units (FEU). Per director of nursing's instructions for use, a value of less than 500 ng/mL (FEU) may help to exclude DVT or PE in outpatients when the assay is used with a clinical pretest probability assessment.([facility] must utilize and document eCalc 'Wells [...] performed using a different testing methodology at [facility] than at other [facility]. Direct result comparisons should only [...] performed using a different testing methodology at [facility] than at other [facility]. Direct result comparisons should only [...] is performed using different testing methodology at [facility] than at other [facility]. Direct result comparisons should only [...] Color, Urine Yellow Appearance, Urine Clear Specific [place], Urine 1.014 pH, Urine 5.0 Protein, Urine [...] Adenovirus and Metapneumovirus is routinely performed for [facility] pediatric oncology and intensive care inpatients, and isavailable on other patients by placing an add-on request. RSV PCR - Normal RSV PCR Not Detected Narrative: This assay is an FDA-cleared, in vitro diagnostic nucleic acid amplification test for the detectionof RSV from nasopharyngeal specimens, and has been validated for use at [facility]. Negative results do not preclude RSV infections, and should not be used as the sole basis for diagnosis, treatment, or other management decisions. If Influenza A/B and RSV PCR results are negative, testing for Parainfluenza virus, Adenovirus and Metapneumovirus is routinely performed for pediatric oncology and intensive care inpatients at [facility], and is available on other patients by [...] Abnormality Status --------- ------ Urinalysis with Reflex M...[[id number]] Abnormal Final result Extra Urine Orosco Tube[[id number]] Final result Please view results for these tests on the individual orders. TROPONIN SERIES- (INITIAL, 1 HR) Narrative: The following orders were created for panel order Troponin I Series, High Sensitivity (0, 1 HR). Procedure Abnormality Status --------- ------ Troponin I, High Sensiti...[[id number]] Abnormal Final result Troponin, High Sensitivi...[[id number]] Abnormal Final result Please view results for [...] Kahlilrakan Fagan 10/11/2023 1:33 AM Dictation workstation: [id number] Critical Care Performed by: Aury Rouse DO [...] Q waves inthe anterior precordial leads. The TN interval is 148 ms. QRS durations 82 ms. QTc is 455 ms axis is 39 degrees. Diagnoses as of 10/12/23514 COVID-19 Acute respiratory failure with hypoxia (CMS/HCC) Acute congestive heart failure, unspecified heart failure type (CMS/HCC) Pneumonia of both lungs due to infectious organism, unspecified part of lung Aury Rouse DO 10/12/23514 [facility] Work Phone: 1(473) 431-432612-08-2023 History of Present illness Narrative* Mary Vargas [...] being taken. Patient does not see a claims specialist. Eye exam is current. Currently taking: No [...] bedside for hypoglycemia at night. 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 Had bilat cataract extraction Dr. Lopez. Sees Dr. Browne in [place] every year routinely.Has blurred vision with low [...] Call if BG consistently <70 or >250. [phone] Continue to check blood sugar 3 times [...] MD 10/10/23 8:04 PM documented in this [id number] Evaluation + Plan note* Assessment & Plan Note - Ayanna Albert DO - 08/25/2023 2:39 PM EDTAssociated Problem(s): CKD (chronic kidney disease) Doing well with DM HTN well controlled Sees Endocrinology. Has Type 1 DM On Statin Not on nephrotoxins [facility] Work Phone: 1(778) 726-544010-25-2023 Miscellaneous Notes* Assessment & Plan Note - Ayanna Albert DO - 08/25/2023 2:39 PM EDTAssociated Problem(s): CKD (chronic kidney disease) Doing well with DM HTN well controlled Sees Endocrinology. Has Type 1 DM On Statin Not on nephrotoxins documented [facility] Phone: 1(974) 877-851810-25-2023 History of Present illness Narrative* Ayanna Albert [...] [facility] Work Phone: 1(366) 912-946204-21-2023 History of Present illness Narrative* Paty Ortega [...] being taken. Patient does not see a claims specialist. Eye exam is current. Currently taking: No [...] at HS. PLAN: See below. 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 Had bilat cataract extraction Dr. Lopez. Sees Dr. Browne in [place] every year routinely. Nephropathy: Positive Creat: 1.09; [...] Call if BG consistently <70 or >250. [phone] Continue to check blood sugar 4 times [...] CNP 02/19/23 10:25 AM documented in this [id number] History of Present illness Narrative* Paty Ortega [...] being taken. Patient does not see a claims specialist. Eye exam is current. Currently taking: No [...] Reduce lunch and HS insulin. 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 Had bilat cataract extraction Dr. Lopez. Sees Dr. Browne in [place] every year routinely. Nephropathy: Positive Creat: 1.09; [...] Call if BG consistently <70 or >250. [phone] Continue to check blood sugar 4 times [...] CNP 10/19/22 10:25 AM documented in this [id number] History of Present illness Narrative* Paty Ortega [...] being taken. Patient does not see a claims specialist. Eye exam is current. Currently taking: No [...] Reduce lunch and HS insulin. 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 Had bilat cataract extraction Dr. Lopez. Sees Dr. Browne in [place] every year routinely. Nephropathy: Positive Creat: 1.09; [...] Call if BG consistently <70 or >250. [phone] Continue to check blood sugar 4 times [...] MD 06/19/22 11:20 PM documented in this [id number] History of Present illness Narrative* Mary Vargas [...] being taken. Patient does not see a claims specialist. Eye exam is current. Currently taking: No [...] Reduce lunch and HS insulin. 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 Had bilat cataract extraction Dr. Lopez. Sees Dr. Browne in [place] every year routinely. Nephropathy: Positive Creat: 1.09; [...] to check stenosis. To be done in [place] office. 2. Education: Reviewed ABCs of diabetes [...] Call if BG consistently <70 or >250. [phone] Continue to check blood sugar 4 times [...] MD 02/13/22 11:20 PM documented in this [id number] History of Present illness Narrative* Paty Ortega, [employer] CONS[employer] - 10/13/2021 2:10 PM EST Images from [...] being taken. Patient does not see a claims specialist. Eye exam is current. Currently taking: No [...] HS. PLAN: See below. 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 Exam within last 12 months: yes Date: 10/16/20. Had bilat cataract extraction Dr. Lopez. Sees Dr. Browne in [place] every year routinely. Nephropathy: Negative Creat: 1.08; [...] Call if BG consistently <70 or >250. [phone] Continue to check blood sugar 4 times [...] CNP 10/13/21 2:55 PM documented in this [id number] History of Present illness Narrative* Paty Ortega [...] concentrated sweets. An PASCALE inhibitor/angiotensin II receptor depeali is being taken. Patient does not see a claims specialist. Eye exam is current. Currently taking: No [...] HS. PLAN: See below. 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 Exam within last 12 months: yes Date: 10/16/20. Had bilat cataract extraction Dr. Lopez. Sees Dr. Browne in [place] every year routinely. Nephropathy: Negative Creat: 1.08; [...] Call if BG consistently <70 or >250. [phone] Continue to check blood sugar 4 times [...] CNP 06/20/21 2:55 PM documented in this [id number] History of Present illness Narrative* Mary Vargas [...] being taken. Patient does not see a claims specialist. Eye exam is current. Currently taking: No [...] HS. PLAN: See below. 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 Exam within last 12 months: yes Date: 10/16/20. Had bilat cataract extraction Dr. Lopez. Sees Dr. Browne in [place] every year routinely. Nephropathy: Negative Creat: 1.08; [...] Call if BG consistently <70 or >250. [phone] Continue to check blood sugar 4 times [...] encounterOhioHealthDischarge summary Author John Brandon [facility] Note Date/Time April 03, 2025 4:11a m [facility] Medical Records Department [address] [place] [address] Emergency Department Summary 04/03/25 MR#: [id number] Acct: [id number] Name: ENOC ARMANDO Rep #:[id number] : 1945 79 From: John Ramirez PCP: Dr. Ryley Jeter MD Status:REG ER Location: ED HPI History of Present Illness Chief Complaint: Shortness of Breath [facility] Medical History Pneumonia COVID Wears glasses [...] AdvReac Other Verified 04/03/25 00:16 (Glucocorticoids) (steroids) Vgeatif-Gnh-Mpw Reductase AdvReac Other Verified 04/03/25 00:16 Inhibitor [...] Consults: internal medicine only sees Dr. Hwang) [facility] Narrative: The patient was initially tachycardic, [...] to ICU This note was generated with [employer] dictation software. It may contain incorrectwords, spelling, [...] 76.4 H Lymph % (Auto) 13.5 L [place] % (Auto) 7.0 Eos % (Auto) 1.9 [...] ABG results: ABG 04/03/25 00:16 Specimen Type JUANIAT Sample Site Not entered O2 % 30.0 [...] congestion and/or pneumonia. Reading [facility] [place] [address] Discharge Plan Triage Chief Complaint: Shortness of [...] MD [Primary Care Provider] - Print Language: Peruvian What to do if you have Problems For any increased pain, shortness of breath, bleeding, nausea or vomiting, chestpain, or any unexpected problems, contact your Primary Care Provider. Call [facility] ([phone]) or report to the closest Emergency Room. Call 911 if necessary. 04/03/251 <Electronically signed by John Brandon DO> Cosigner Signature (if applicable): CC: Dr. Ryley Jeter MD ~ Signed [facility] Work Phone: Discharge summary Author Grace [facility] Note Date/Time April 10, 2025 5:09 pm [facility] Medical Records Department [address] [place] [address] Instructions for Home/Discharge Instructions 04/10/25 1527 MR#: [id number] Acct: [id number] Name: ENOC ARMANDO Rep #:[id number] : 1945 79 From: Grace Arnold MD [...] Smooth Luis MD ~ Signed [facility] Work Phone: Discharge summary Author Arnulfo [facility] Note Date/Time April 19, 2025 3:48 am [facility] Medical Records Department [address] [place] [address] Emergency Department Summary 04/19/25 MR#: [id number] Acct: [id number] Name: ENOC ARMANDO Rep #:[id number] : 1945 79 From: Arnulfo Jose DO [...] denies any formal diagnosis of [facility] History Non-STEMI (non-ST elevated myocardial [...] AdvReac Other Verified 04/03/25 00:16 (Glucocorticoids) (steroids) Zvezwgq-KQR-BmW Reductase AdvReac Other Verified 04/03/25 00:16 Inhibitor (Ksgkqje-Loc-Nzj Reductase Inhibitor) Family History Mother COPD (chronic [...] 82.3 H Lymph % (Auto) 10.0 L [place] % (Auto) 5.7 Eos % (Auto) 1.0 [...] Magnesium 2.3 [place] [address] H Procalcitonin 0.10 POC Glucose 437 H Radiography Diagnostic Testing: Clinical Impression(s) from Imaging Studies Chest X-Ray 04/19/25 01:00 IMPRESSION: Increased mild bilateral pleural effusions. Increased passive atelectatic airspace disease of the lower lobes. Increased pulmonary venous congestion and interstitial edema. Enlarged cardiac silhouette. Reading Location: [place] [address] Chest x-ray as interpreted by the emergency [...] Chronic anemia Disposition Disposition: Acute Care [facility] What to do if you have Problems For any increased pain, shortness of breath, bleeding, nausea or vomiting, chestpain, or any unexpected problems, contact your Primary Care Provider. Call [facility] ([phone]) or report to the closest Emergency Room. Call 911 if necessary. 04/19/25 0348 <Electronically signed by Arnulfo Jose DO> Cosigner Signature (if applicable): CC: Dr. Ryley Jeter MD ~ Signed [facility] Work Phone: Discharge summary Author Malika Fonseca [facility] Note Date/Time April 22, 2025 1:13 pm [facility] Medical Records Department [address] [place] [address] Discharge Summary 04/22/25 1301 MR#: [id number] Acct: [id number] Name: ENOC ARMANDO Rep #:[id number] : 1945 79 From: Malika Fonseca DO PCP: Dr. Ryley Jeter MD Status:ADM IN Location: [place] [address] Providers Date of Admission: 04/19/25 Primary Care [...] Referrals / Follow Up: [facility] [Provider Group] - Within 1 Month Ryley Jeter MD [Primary Care Provider] - Within 2 Weeks Disposition Disposition (needs filled in before D/C Order can be placed): Home, Self Care Charges/Coding Visit Charges Inpatient E&M: 94667 Disch Hosp >30min 04/22/25 1313 <Electronically signed by Malika Fonseca DO> Cosigner Signature (if applicable): CC: Dr. Ryley Jeter MD; Dr. Malika Fonseca DO~ Signed [facility] Work Phone: Evaluation note* Diagnosis [...] diabetic neuropathy (CMS/HCC) documented in this encounter [facility] Work Phone: Evaluation note* Diagnosis Type 1 [...] heart failure (CMS/HCC) documented in this encounter [facility] Work Phone: Evaluation note* Diagnosis 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- Primary Dyslipidemia Other and unspecified hyperlipidemia Congestive heart failure, unspecified HF chronicity, unspecified heart failure type (HCC) documented in this encounter [facility] noteNo assessment information [facility] Work Phone: Evaluation note* Diagnosis NSTEMI (non-ST elevated myocardial infarction) (CMS/HCC)- Primary Acute myocardial infarction, subendocardial infarction, episode of care unspecified [place]ADONNA (acute kidney injury) (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) documented in this encounter [facility] Work Phone: Evaluation note* Diagnosis NSTEMI (non-ST [...] diabetic neuropathy (Multi) documented in this encounter [facility] Work Phone: Evaluation note* Diagnosis Type 1 [...] with diabetic neuropathy documented in this encounter [facility] Work Phone: Evaluation note* Diagnosis Type 1 [...] [facility]Evaluation [facility]* Diagnosis Coronary 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- Primary documented in [...] of cerebral infarction Coronary 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- Primary Claudication in [...] with diabetic neuropathy documented in this encounter [facility] Work Phone: Evaluation note* Diagnosis Bilateral carotid artery stenosis Occlusion and stenosis of carotid artery without mention of cerebral infarction Coronary 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- Primary NSTEMI (non-ST [...] Admit Date Acute hypoxic respiratory failure [place] April 03, 2025 4:16am [facility] Work Phone: Evaluation note* Diagnosis [...] with diabetic neuropathy documented in this encounter [facility] Work Phone: History and physical note Author Dyana Hwang [facility] Note Date/Time April 03, 2025 4:42a m [facility] Medical Records Department [address] [place] [address] H&P Exam - Hospitalist 04/03/25 0402 MR#: [id number] Acct: [id number] Name: ENOC ARMANDO Rep #:[id number] : 1945 79 From: Dyana Hwang MD [...] use who presents to the [facility] ED on 04/03/2025 with history [...] x 1 and sublingual nitroglycerin x 1. [facility] Medical History (Updated 04/03/25 @ 04:40 by [...] AdvReac Other Verified 04/03/25 00:16 (Glucocorticoids) (steroids) Lzgfsva-PFK-IvY Reductase AdvReac Other Verified 04/03/25 00:16 Inhibitor (Kkbmjsy-Ffx-Rpg Reductase Inhibitor) Family History (Updated 04/03/25 @ [...] 76.4 H, Lymph % (Auto) 13.5 L, [place] % (Auto) 7.0, Eos % (Auto) 1.9, [...] possibly multifocal congestion and/or pneumonia. Reading Location: [place] [address] Chest CTA 04/03/25 02:34 IMPRESSION: Mild bilateral pleural effusions. Passive atelectatic airspace disease/airspace consolidations of the lower lobes. Bilateral chronic perihilar interstitial pulmonary thickening with associated mild multifocal ground-glass densities, possibly superimposed pneumonia. Mild diffuse spondylosis. No CT evidence of pulmonary embolus or aortic dissection. Reading Location: [place] [address] Assessment & Plan Assessment/Plan (1) Acute hypoxic respiratory failure: PLAN: Plan The patient is an 79 y/o M w/ PMHx: CKD stage III unclear subtype per GFR trending, Chronic macrocytic anemia, HTN, HLD, Diabetes mellitus type II, BPH with obstructive pathology, Tobacco use who presents to the [facility] ED on 04/03/2025 with history [...] any pulmonary embolus or aortic dissection, initial [id number] with repeat delta troponin 76. Will maintain [...] 16 minutes. Charges/Coding Visit Charges Inpatient E&M: 48088 Init Hosp L3 Procedures Hospitalists Procedures: 53378 Advncd Care Plan 30 Min 04/03/25 0442 <Electronically signed by Dyana Hwang MD> Cosigner Signature (if applicable): CC: Dr. Dyana Hwang MD; Dr. Ryley Jeter MD~ Signed [facility] Work Phone: History of Present illness Narrative* At least a 5 yr HX of LBP (previous HX of sciatica). No recent film studies have been done. He willbe a low fall risk. The patient will continue his therapy at [place]. Physical findings include limited trunk ROM with discomfort. Continue with trunk mech trng, STW (needling), and core stability/ROM exercises. * Clinical Presentation: Stable and/or uncomplicated characteristics. * Level of Complexity: low * Problem List: activity limitations, ADLs/IADLs/self care skills, decreased functional level, decreased knowledge of HEP, decreased knowledge of precautions, fall risk, gait/locomotion, pain, range ofmotion/joint mobility and strength. [facility] Work Phone: History of Present illness NarrativePatient identified by name and date of . Patient demonstrated good understanding of exercises and stretching with cues to complete after instruction. He presented with palpable tension in gluts and QL and paraspinals that responded well to STW.[facility] Work Phone: History of Present illness Narrative* [...] with relief noted d/t tightness in LB. [facility] Work Phone: History of Present illness Narrative* Tightness along the ITB and QL continues. * Palpable spams in both regions with with STW. * Fair trunk flexibility with SKTC. [facility] Work Phone: History of Present illness NarrativePatient identified by name and date of . Patient was able to progress with several exercises this date with addition of teri disc and focus on maintain upright posture. He presented with increased muscle tension in IT band and QL this date.[facility] Work Phone: History of Present illness NarrativePatient identified by name and date of . Added IT band stretch this date and instructed for HEP due to palpable tension. Reviewed importance of HEP even if he feels sore to increased with ROM and decrease with muscle tension, he verbalized good understanding. Patient continues to present with palpable muscle tension/restrictions in his piriforms.[facility] Work Phone: History of Present illness NarrativePatient identified by name and date of . Added IT band stretch this date and instructed for HEP due to palpable tension. Reviewed importance of HEP even if he feels sore to increased with ROM and decrease with muscle tension, he verbalized good understanding. Patient continues to present with palpable muscle tension/restrictions in his piriforms. [facility] Work Phone: History of Present illness NarrativePatient [...] and possible inclusion of trigger point dry needling.[facility] Work Phone: History of Present illness NarrativeSTW [...] a TENS unit for the patient. [facility] Work Phone: reason for referral (narrative)* Consultation (Routine) - Authorized Specialty Diagnoses / Procedures Referred By Jimy stacy Referred To Contact Nephrology Diagnoses Stage 3b chronic kidney disease (CMS/HCC) Procedures Follow Up In Nephrology Ayanna Albert DO [address] [place] [address] Referral ID Status Reason Start Date Expiration Date V isits Requested Visits Authorized [id number] Authorized 08/25/2023 08/24/2024 1 1 [facility] Work Phone: Reason for referral (narrative)* Consultation (Routine) - Authorized Specialty Diagnoses / Procedures Referred By Jimy stacy Referred To Contact Nephrology Diagnoses Stage 3b chronic kidney disease (Multi) Procedures Follow Up In Nephrology Maricruz Albert APRN-CNP, DNP [address] [place] [address] Referral ID Status Reason Start Date Expiration Date V isits Requested Visits Authorized [id number] Authorized 02/24/2024 02/23/2025 1 1 [facility] Work Phone: Reason for referral (narrative)No reason for referral information availableWMercy [facility] Work Phone: Reason for visit Narrative* Initial Evaluation . lumbar DDD. * Referred by: Yuki [facility] Work Phone: Reason for visit Narrative* Auth/Cert Specialty Diagnoses / Procedures Referred By Jimy stacy Referred To Contact Diagnoses NSTEMI (non-ST elevated myocardial infarction) (HCC) NSTEMI Referral ID Status Reason Start Date Expiration Date Visits Re quested Visits Authorized [id number] 1 1 [facility] Auth/Cert (Routine) Specialty Diagnoses / Procedures Referred By Jimy stacy Referred To Contact Diagnoses Cardiovascular stress test abnormal Fatigue, unspecified type SOB (shortness of breath) Cardiovascular stress test abnormal [R94.39] Fatigue, unspecified type [R53.83] SOB (shortness of breath) [R06.02] Procedures Left Heart Cath Referral ID Status Reason Start Date Expiration Date Visits Re quested Visits Authorized [id number] 1 1 [facility] Instructions * Patient Instructions - Alexandra [...] FoundDocuments on File Type Date Recorded Patient Net C Developer Expl anation Advance Directives and Living Will Documents on File Type Date Recorded Patient Net C Developer Expl anation Advance Directives and Livin g Will 10/18/2020 1:33 PM Documents on File Type Date Recorded Patient Net C Developer Expl anation Advance Directives and Livin g Will 10/18/2020 1:33 PM Documents on File Type Date Recorded Patient Net C Developer Expl anation Advance Directives and Livin g Will 02/21/2021 3:38 PM Documents on File Type Date Recorded Patient Net C Developer Expl anation Advance Directives and Livin g Will 02/21/2021 3:38 PM Latest Code Status on File Code Status Date Activated Date Inactivated Comments Full Code 10/11/2023 5:02 AM Question Answer Comments Plan of Care: Code Status Discussion Completed Decision Maker: Patient Advance Directive Response Recorded Date/ Time Living Will Yes August 05 7:59am Power of Outdoor Adventure Leader Yes August 05 7:59am Latest Code Status [...] Documents on File Type Date Recorded Patient Net C Developer Expl anation Advance Directives and Livin g [...] Documents on File Type Date Recorded Patient Net C Developer Expl anation Advance Directives and Livin g [...] Do you have a Healthcare Power of Outdoor Adventure Leader? No April 03, 2025 5:17am Advance Directive Response Recorded Date/ Time Do you have a Healthcare Power of Outdoor Adventure Leader? No April 03, 2025 5:17am Do you have a Healthcare Power of Outdoor Adventure Leader? Yes April 19, 2025 12:03am Advance Directive Response Recorded Date/ Time Do you have a Healthcare Power of Outdoor Adventure Leader? No April 03, 2025 5:17am Do you have a Healthcare Power of Outdoor Adventure Leader? Yes April 19, 2025 4:03am Name of Medical Power of Outdoor Adventure Leader Alice - April 19, 2025 4:03am History of Present Illness * Keeley Patton, [employer] - 11/11/2018 8:11 AM EST Formatting of this note may be different from the original. Patient ID: Enoc Armando is a 72 y.o. male Subjective: HPI: Enoc Armando presents for follow-up of Type 1 diabetes The initial diagnosis of diabetes was rxek96-66 years ago in 1994. Disease course has [...] being taken. Patient does not see a claims specialist. Eye exam is current. Patient with a [...] blood sugar though. PLAN: CPM. 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 Exam within last 12 months: yes Date: 08/2018 . Had bilat cataract extraction Dr. Lopez. Sees Dr. Browne in [place] every year routinely. Nephropathy: Negative Creat: 1.2, [...] Call if BG consistently <70 or >250. [phone] Continue to check blood sugar 4 times [...] being taken. He does not see a claims specialist.Eye exam is current (Jun 16). 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 male Subjective: HPI: Enoc Armando presents for follow-up of Type 1 diabetes The initial diagnosis of diabetes was [id number] years ago in 1994. Disease course has [...] being taken. Patient does not see a claims specialist. Eye exam is current. Currently taking: No [...] the morning. 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 Exam within last 12 months: yes Date: 08/2018- patient due next month for updated exam Had bilat cataract extraction Dr. Lopez. Sees Dr. Browne in [place] every year routinely. Nephropathy: Negative Creat: 1.0, [...] to bedtime appear to be typically less [id number] and usually less than 180. He was [...] Call if BG consistently <70 or >250. [phone] Continue to check blood sugar 4 times [...] diabetes The initial diagnosis of diabetes was [id number] years ago in 1994. Disease course has [...] being taken. Patient does not see a claims specialist. Eye exam is current. Currently taking: No oral hypoglycemic medications Humalog insulin: 10 units at breakfast; 10 units at lunch; 14-15 units at supper Lantus insulin: 18 units at bedtime Outpatient Medications Marked as Taking for the 11/16/19 encounter (Office Visit) with Paty Ortega, [employer] CONSULTANT: amLODIPine (NORVASC) 10 MG tablet, Take 10 [...] at HS. 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 Exam within last 12 months: yes Date: 08/2018- patient due next month for updated exam Had bilat cataract extraction Dr. Lopez. Sees Dr. Browne in [place] every year routinely. Nephropathy: Negative Creat: 1.08; [...] Call if BG consistently <70 or >250. [phone] Continue to check blood sugar 4 times [...] being taken. Patient does not see a claims specialist. Eye exam is current. Currently taking: No [...] Type 1 diabetes, under good control Enoc Amrando presents for follow-up of Type 1 diabetes [...] <150 atHS. 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 Exam within last 12 months: yes Date: 09/2019- patient due September 2020for updated exam Had bilat cataract extraction Dr. Lopez. Sees Dr. Browne in [place] every yearroutinely. Nephropathy: Negative Creat: 1.01; eGFR: [...] Call if BG consistently <70 or >250. [phone] Continue to check blood sugar 4 times [...] 10:55 AM documented in this encounter* Paty Orteag CNP - 10/18/2020 1:45 PM EST Patient [...] being taken. Patient does not see a claims specialist. Eye exam is current. Currently taking: No [...] <150 atHS. 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 Exam within last 12 months: yes Date: 10/16/20. Had bilat cataract extraction Dr. Lopez. Sees Dr. Browne in [place] every year routinely. Nephropathy: Negative Creat: 1.01; [...] Call if BG consistently <70 or >250. [phone] Continue to check blood sugar 4 times [...] diabetes The initial diagnosis of diabetes was [id number] years ago in 1994. Disease course has [...] being taken. Patient does not see a claims specialist. Eye exam is current. Currently taking: No [...] same dose of 18 unitsnightly. 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 Exam within last 12 months: yes Date: 08/2018 . Had bilat cataract extraction Dr. Lopez. Sees Dr. Browne in [place] every year routinely. Nephropathy: Negative Creat: 1.0, [...] Call if BG consistently <70 or >250. [phone] Continue to check blood sugar 4 times [...] Ultrasound doppler carotid Mary Vargas MD [address] [place] [address] Status Reason Specialty Diagnoses / Procedures Referre d By Contact Referred To Contact Closed Cardiology Diagnoses Bilateral carotid artery stenosis Procedures Ultrasound doppler carotid Mary Vargas MD [address] [place] [address] [facility] [address] [facility] [place] [address] Specialty Diagnoses / Procedures Referred By Contac t Referred To Contact Urology Diagnoses Elevated PSA Paty Ortega CNP [address] [place] [address] Alvaro Gutierrez MD [address] [place] [phone] Referral ID Status Reason Start Date Expiration Date Visits Requested Visits Authorized [id number] Pending Review Specialty Services Required/Pat ient's Best Interest 06/19/2022 06/19/2023 1 1 Specialty Diagnoses / Procedures Referred By Contac t Referred To Contact Cardiology Diagnoses Bilateral carotid artery stenosis Procedures Ultrasound doppler carotid Paty Ortega CNP [address] [place] [address] Referral ID Status Reason Start Date Expiration Date V isits Requested Visits Authorized [id number] Authorized 10/19/2022 10/19/2023 1 1 Specialty Diagnoses / Procedures Referred By Jimy t Referred To Contact Radiology Diagnoses Congestive heart failure, unspecified HF chronicity, unspecified heart failure type (HCC) 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 Procedures NM Myocardial Perfusion Multiple SPECT Day, Woo Larsen MD [address] [place] [address] Referral ID Status Reason Start Date Expiration Date V isits Requested Visits Authorized [id number] New Request 10/21/2023 10/20/2024 4 4 Chief [...] section and content) DATE CREATED AUTHOR 04/21/2018 [facility] DATE CREATED AUTHOR AUTHOR'S ORGANIZ ATION 07/05/2019 [facility] DATE CREATED AUTHOR AUTHOR'S ORGANIZ ATION 08/04/2023 [facility] DATE CREATED AUTHOR AUTHOR'S ORGANIZ ATION 08/06/2023 [facility] DATE CREATED AUTHOR AUTHOR'S ORGANIZ ATION 10/13/2023 [facility] DATE CREATED AUTHOR AUTHOR'S ORGANIZ ATION 11/12/2024 [facility] DATE CREATED AUTHOR AUTHOR'S ORGANIZ ATION 03/13/2025 [facility] DATE CREATED AUTHOR AUTHOR'S ORGANIZ ATION 04/14/2025 [facility] DATE CREATED AUTHOR AUTHOR'S ORGANIZ ATION 04/28/2025 [facility] DATE CREATED AUTHOR AUTHOR'S ORGANIZ ATION 04/29/2025 [facility] DATE CREATED AUTHOR AUTHOR'S ORGANIZ ATION 05/03/2025 [facility] DATE CREATED AUTHOR AUTHOR'S ORGANIZ ATION 05/04/2025 [facility] Reason for Visit (unrecogniz ed section and content) Reason Comments Diabetes Mellitus Reason Onset Date Comments Medication Refill 02/18/2021 Reason Comments Diabetes Mellitus Status Reason Specialty Diagnoses / Procedures Referre d By Contact Referred To Contact Closed Cardiology Diagnoses Bilateral carotid artery stenosis Procedures Ultrasound doppler carotid Mary Vargas MD [address] [place] [address] [facility] [address] [facility] [place] [address] Reason Onset Date Comments Medication Refill 10/08/2021 [...] No coded services entered Praful Maloney MD [address] [place] [address] [phone] Referral ID Status Reason Start Date Expiration Date Visits Re quested Visits Authorized [id number] 1 1 Reason Comments Initial Visit (Intake) SOBOE Specialty Diagnoses / Procedures Referred By Contac t Referred To Contact Cardiology Diagnoses Congestive heart failure, unspecified HF chronicity, unspecified heart failure type (HCC) Mary Vargas MD [address] [place] [address] [facility] Sigrid [facility]rera [address] [facility] [place] [address] Referral ID Status Reason Start Date Expiration Date Visits Re quested Visits Authorized [id number] Closed 10/19/2023 10/18/2024 1 1 Reason Comments Respiratory Distress Pt comes in for dif ficulty breathing. Pt states that he was dx with a viral lung infection 1 wk ago and placed on a steroid. Pt had covid 1 month ago and was admitted for 1 wk at this facility. 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 EMS reports an O2 level in [...] carotid artery stenosis Sandi Phan PA-C [address] [place] [address] Phone: tel: fax: [place] [id number] [place] [address] Phone: tel: Referral ID Status Reason Start Date Expiration Date V isits Requested Visits Authorized [id number] Pending Review 11/07/2024 11/07/2025 1 1 Reason [...] Nephrology Ayanna Albert, [address] [place] [address] Phone: tel: fax: Referral ID Status Reason Start Date Expiration Date V isits Requested Visits Authorized [id number] Authorized 08/29/2024 08/29/2025 1 1 Reason Comments Shortness of Breath Abnormal Lab BNP Reason Comments Diabetes Mellitus Diabetic Eye Exam du e on 10/14/2021 Reason Onset Date Comments Results 03/27/2025 Lab Reason Onset Date Comments Medication Refill 04/16/2025 Reason Comments Follow-up [facility] Care Teams (unrecognized sec tion and content) Laboratory Equipment Installer Relationship Specialty Start Date End Date Nancy Mirza MD PCP - General Family Medicine 01/09/16 Laboratory Equipment Installer Relationship Specialty Start Date End Date Nancy Mirza MD PCP - General Family Medicine 01/09/16 Laboratory Equipment Installer Relationship Specialty Start Date End Date Nancy Mirza MD PCP - General Family Medicine 01/09/16 Laboratory Equipment Installer Relationship Specialty Start Date End Date Nancy Mirza MD PCP - General Family Medicine 01/09/16 Laboratory Equipment Installer Relationship Specialty Start Date End Date Nancy Mirza MD PCP - General Family Medicine 01/09/16 Laboratory Equipment Installer Relationship Specialty Start Date End Date Nancy Mirza MD PCP - General Family Medicine 01/09/16 Laboratory Equipment Installer Relationship Specialty Start Date End Date Nancy Mirza MD PCP - General Family Medicine 01/09/16 Laboratory Equipment Installer Relationship Specialty Start Date End Date Nancy Mirza MD [address] [place] [address] PCP - General Family Medicine 01/09/16 Laboratory Equipment Installer Relationship Specialty Start Date End Date Nancy Mirza MD [address] [place] [address] PCP - General Family Medicine 01/09/16 Laboratory Equipment Installer Relationship Specialty Start Date End Date Nancy Mirza MD [address] [place] [address] PCP - General 11/01/18 Laboratory Equipment Installer Relationship Specialty Start Date End Date Ryley Jeter MD [address] [place] [address] PCP - General Family Medicine 10/08/23 Laboratory Equipment Installer Relationship Specialty Start Date End Date Nancy Mirza MD [address] [place] [address] PCP - General 11/01/18 Laboratory Equipment Installer Relationship Specialty Start Date End Date Ryley Jeter MD [address] [place] [address] PCP - General Family Medicine 10/08/23 Laboratory Equipment Installer Relationship Specialty Start Date End Date Ryley Jeter MD [address] [place], [place] [address] PCP - General Family Medicine 10/08/23 Team Status: Active Member Role Status Lizzette Jeter MD Primary Care Provider Active Team Status: Inactive Member Role Status Lizzette Jeter MD Primary Care Provider Active Jana Ferguson BUSINESS STRATEGIST, BUSINESS STRATEGIST-C Attending Provider Active Team Status: Inactive Member Role Status Lizzette Jeter MD Primary Care Provide r, Attending Provider, Referring Provider Active Laboratory Equipment Installer Relationship Specialty Start Date End Date Ayanna Albert DO [address] [place] [address] PCP - [employer] Medicare Advantage PCP 11/01/23 Generic Provider, No Assigned MD Dor[address] [place] [address] PCP - General Internal Medicine 11/26/23 Laboratory Equipment Installer Relationship Specialty Start Date End Date Ayanna Albert DO [address] [place] [address] PCP - [employer] Medicare Advantage PCP 11/01/23 Gerri Amos MD [address] [place] [address] PCP - General Internal Medicine 11/26/23 Laboratory Equipment Installer Relationship Specialty Start Date End Date Ryley Jeter MD [address] [place], [place] [address] PCP - General Family Medicine 10/08/23 Laboratory Equipment Installer Relationship Specialty Start Date End Date Nancy Mirza MD [address] [place] [address] PCP - General 11/01/18 11/25/23 Laboratory Equipment Installer Relationship Specialty Start Date End Date Ryley Jeter MD [address] [place], [place] [address] PCP - General Family Medicine 10/08/23 Laboratory Equipment Installer Relationship Specialty Start Date End Date Ryley Jeter MD [address] [place], [place] [address] PCP - General Family Medicine 10/08/23 Laboratory Equipment Installer Relationship Specialty Start Date End Date Ryley Jeter MD [address] [place], [place] [id number] PCP - General Family Medicine 10/08/23 Laboratory Equipment Installer Relationship Specialty Start Date End Date Ryley Jeter MD [address] [place], [place] [address] PCP - General Family Medicine 10/08/23 Laboratory Equipment Installer Relationship Specialty Start Date End Date Ayanna Albert DO [address] [place] [address] PCP - [employer] Medicare Advantage PCP 11/01/23 Generic Provider, No Assigned MD Doris [address] [place] [address] PCP - General Internal Medicine 11/26/23 Laboratory Equipment Installer Relationship Specialty Start Date End Date Ryley Jeter MD [address] [place], [place] [id number] PCP - General Family Medicine 10/08/23 Laboratory Equipment Installer Relationship Specialty Start Date End Date Ayanna Albert DO [address] [place] [address] PCP - [employer] Medicare Advantage PCP 11/01/23 Generic Provider, No Assigned PcpMD [address] [place] [id number] PCP - General Internal Medicine 11/26/23 Laboratory Equipment Installer Relationship Specialty Start Date End Date Ryley Jeter MD [address] [place] [address] PCP - General Family Medicine 10/08/23 Laboratory Equipment Installer Relationship Specialty Start Date End Date Ryley Jeter MD [address] [place] [address] PCP - General Family Medicine 10/08/23 Laboratory Equipment Installer Relationship Specialty Start Date End Date Ryley Jeter MD [address] [place] [address] PCP - General Family Medicine 10/08/23 Laboratory Equipment Installer Relationship Specialty Start Date End Date Ryley Jeter MD [address] [place] [address] PCP - General Family Medicine 10/08/23 Laboratory Equipment Installer Relationship Specialty Start Date End Date Ryley Jeter MD [address] [place] [address] PCP - General Family Medicine 10/08/23 Laboratory Equipment Installer Relationship Specialty Start Date End Date Ryley Jeter MD [address] [place] [address] PCP - General Family Medicine 10/08/23 Laboratory Equipment Installer Relationship Specialty Start Date End Date Ryley Jeter MD [address] [place] [address] PCP - General Family Medicine 10/08/23 Laboratory Equipment Installer Relationship Specialty Start Date End Date Ryley Jeter MD [address] [place] [address] PCP - General Family Medicine 10/08/23 Kristy Parker MD [address] [place] [address] Consulting Physician Vascular Surgery 11/09/24 Laboratory Equipment Installer Relationship Specialty Start Date End Date Ryley Jeter MD [address] [place], [place] [address] PCP - General Family Medicine 10/08/23 Kristy Parker MD [address] [place], [place] [address] Consulting Physician Vascular Surgery 11/09/24 Laboratory Equipment Installer Relationship Specialty Start Date End Date Ryley Jeter MD [address] [place], [place] [id number] PCP - General Family Medicine 10/08/23 Kristy Parker MD [address] [place], [place] [id number] Consulting Physician Vascular Surgery 11/09/24 Laboratory Equipment Installer Relationship Specialty Start Date End Date Ryley Jeter MD [address] [place], [place] [id number] PCP - General Family Medicine 10/08/23 Kristy Parker MD [address] [place] [address] Consulting Physician Vascular Surgery 11/09/24 Laboratory Equipment Installer Relationship Specialty Start Date End Date Ryley Jeter MD [address] [place], [place] [address] PCP - General Family Medicine 10/08/23 Kristy Parker MD [address] [place] [address] Consulting Physician Vascular Surgery 11/09/24 Team Status: Inactive Member Role Status Dates Ryley Jeter MD Primary Care Provider Active St art: February 06, 2025 End: February 06, 2025 Dr. Kerwin Tamayo MD Attending Provider Activ e Start: February 06, 2025 End: February 06, 2025 Laboratory Equipment Installer Relationship Specialty Start Date End Date Ryley Jeter MD [address] [place], [place] [address] PCP - General Family Medicine 10/08/23 Kristy Parker MD [address] [facility] [place] [address] Consulting Physician Vascular Surgery 11/09/24 Laboratory Equipment Installer Relationship Specialty Start Date End Date Ryley Jeter MD [address] [place], [place] [address] PCP - General Family Medicine 10/08/23 Kristy Parker MD [address] [facility] [place] [address] Consulting Physician Vascular Surgery 11/09/24 Laboratory Equipment Installer Relationship Specialty Start Date End Date Ryley Jeter MD [address] [place], [place] [address] PCP - General Family Medicine 10/08/23 Kristy Parker MD [address] [place] [address] Consulting Physician Vascular Surgery 11/09/24 Laboratory Equipment Installer Relationship Specialty Start Date End Date Generic Provider, No Assigned PcpMD PCP - General Internal Medicine 11/26/23 Laboratory Equipment Installer Relationship Specialty Start Date End Date Ryley Jeter MD [address] [place] [address] PCP - General Family Medicine 10/08/23 Kristy Parker MD [address] [place] [address] Consulting Physician Vascular Surgery 11/09/24 Laboratory Equipment Installer Relationship Specialty Start Date End Date Ryley Jeter MD [address] [place] [address] PCP - General Family Medicine 10/08/23 Kristy Parker MD [address] [place] [address] Consulting Physician Vascular Surgery 11/09/24 Team Status: [...] Active Start : April 06, 2025 Dr. Brokc Jeffries MD Other Provider Active Start: April [...] Team Status: Active Member Role Status Dates Rylye Jeter MD Primary Care Provider Active St [...] Provider Active St art: April 22, 2025 Laboratory Equipment Installer Relationship Specialty Start Date End Date Generic Provider, No Assigned Pcp, PCP - General Internal Medicine 11/26/23 Scheduled Active and Recently Administ ered Medications (unrecognized section and content) Medication Order 10/11/2023 10/12/2023 10/13/2023 albuterol 2.5 mg /3 mL (0.083 %) nebulizer solution 2.5 mg (COMPLETED) 2.5 mg, nebulization, Once, On Wed10/11/23 at 0150, For 1 dose 0203 (Given - Provider: Scarlet Ashford, SALES ENABLEMENT SPECIALIST - Comment: albuterol) amLODIPine (Norvasc) tablet 10 [...] swallow. 1900 (Given - Provider: Scarlet Ashford, SALES ENABLEMENT SPECIALIST) 0700 (Not Given - Provider: Amber Pascal, [...] dose 0232 (Given - Provider: Heather Leonardo, FDIEL) diazePAM (Valium) injection 0.5 mg (COMPLETED) 0.5 [...] Provider: Scarlet Ashford RRT)2145 (Given - Provider: cSarlet Ashford RRT) 0652 (Given - Provider: Amber [...] 221 (Given - Provider: Kristi Bowman, RN) irpvkzmpsdxa-jsjoheticf-ddlsffds (Zosyn) IV 3.375 g (COMPLETED) 3.375 g, [...] 11/27/23 at 0337, Anginal pain, may repeat [id number] x3, then notify physician. DO NOT CRUSH [...] 8 units instructed verbal order from [facility]) isosorbide mononitrate (IMDUR) 24 hr tablet [...] RN) 0001 (Rate/Dose Verify - Provider: Julia Cahn RN)0100 (Rate/Dose Verify - Provider: Julia Chan [...] Provider: Julia Chan RN)0213 (Paused - Provider: Juila Chan RN)0213 (Restarted - Provider: Julia Chan [...] at 0921, Intra-Procedure 0921 (Given - Provider: Elísa Rodriguez MD) lidocaine 1% (PF) (XYLOCAINE-MPF) 10 [...] BE BASED ON THE PRIMARY CLINICAL RECORDS. [facility]. provides no warranty or guarantee of the accuracy or completeness of information in this document.
[2025-05-05 22:32] LABS: Magnesium 2.3 mg/dL (1.5-2.2)
[2025-05-05 22:44] LABS: Troponin T High Sens 2 HR 113 ng/L (<=22)
[2025-05-05] MEDS: Pantoprazole Sodium 40 MG in 0.9% Normal Saline (100mL MB+) 100 ML 330 MG IV (23:19)
[2025-05-05 23:48] LABS: Allen Test Positive; Base Excess 4 mmol/L (-2 to +2); Comment 14 8; FI02 35.0; PEEP 8; PIP 14; PO2 78 mmHG (75-100); SITE L Radial; SO2 96 % (95-99)
[2025-05-05 23:58] LABS: Reflex Lactate? Y
[2025-05-06] VITALS (11 sets, daily range): BP systolic 114–158; BP diastolic 46–97; PULSE 69–87; RESP 12–20; TEMP 36.6–37; O2SAT 94–98; BMI 22.7
[2025-05-06 00:32] LABS: Troponin T High Sens 4 HR 141 ng/L (<=22)
[2025-05-06] MEDS: Heparin Injection (Vial) 5,000 UNIT/ML VIAL 5000 UNIT SC ×3 (05:19→21:10)
[2025-05-06 05:50] LABS: Hematocrit 25.8 % (40-54); Hemoglobin 8.2 g/dL (13.0-16.5); Immature Granulocytes Count 0.060 X10^3/uL (0.0-0.0); Mean Corp Hgb Conc 31.8 g/dL (32-36); Mean Corpuscular Volume 92.8 fL (80-94); Mean Platelet Vol. 10.9 fl (6.2-12.0); NRBC Flagged by Analyzer 0 % (0-5); POSITIVE DIFFERENTIAL YES; Platelet Count 178 K/mm3 (150-450); RBC Distribution Width CV 14.2 % (11.6-14.6); RBC Distribution Width SD 48.0 fl (35.1-43.9); Red Blood Count 2.78 M/mm3 (4.6-6.2); White Blood Count 12.3 K/mm3 (4.4-11.0)
[2025-05-06 06:16] LABS: AST(SGOT) 31 U/L (<=37); Alanine Aminotransfer ALT/SGPT 38 U/L (<=46); Albumin, Serum 3.3 g/dL (3.4-4.8); Alkaline Phosphatase 72 U/L (40-129); Anion Gap 16 (5-15); BUN 75 mg/dL (4-19); BUN/Creat Ratio 30.3 RATIO (10-20); Calcium,Total 8.3 mg/dL (7.6-11.0); Carbon Dioxide 22.7 mmol/L (21.0-32.0); Chloride 104 mmol/L (98-108); Estimated Creatinine Clearance 21.95 ml/min (50-250); Globulin 2.4 g/dL (2.2-4.2); Glucose 189 mg/dL (70-99); Potassium 4.0 mmol/L (3.3-5.1)
[2025-05-06 06:16] LABS: Allen Test Positive; Base Excess 4 mmol/L (-2 to +2); Comment 14 8; FI02 50.0; PEEP 8; PO2 73 mmHG (75-100); RR 12; SITE L Radial; SO2 95 % (95-99)
[2025-05-06 06:28] LABS: Pro- Brain NATRIURETIC PEPTIDE 33689 pg/mL (<=1800)
[2025-05-06 07:12] LABS: Allen Test Positive; Base Excess 4 mmol/L (-2 to +2); FI02 30.0; PEEP 8; PO2 95 mmHG (75-100); RR 12; SITE R Radial; SO2 98 % (95-99)
--- NOTE | 2025-05-06 07:41 | PCM.PN.HOSP ---
Reason for Visit Reason for Visit: Shortness of breath Subjective Subjective Patient states he is feeling much better. He states that his breathing was so bad he felt like he was going to . He states that his repairer switchgear is having him push fluid and his environmental restoration planner is restricting fluids so he is a little bit confused on what to do. I did explain the fact that he has a depressed EF of 40% but he also has mitral valve insufficiency which is causing backflow meaning his EF is actually lower than the 40% measured on echocardiogram. Objective Data Objective Data Vital Signs: Vital Signs Temp Pulse Resp BP Pulse Ox O2 Del Method FiO2 97.8 F 80 18 158/97 H 98 Bi-pap 30 05/06/25 04:01 05/06/25 06:47 05/06/25 06:47 05/06/25 04:01 05/06/25 06:47 05/06/25 05:39 05/06/25 06:47 Oxygen Delivery Method Bi-pap Weight: 65.9 kg Body Mass Index (BMI) 22.7 Intake & Output: Intake and Output for Last 24 Hours 05/04/25 05/05/25 05/06/25 23:59 23:59 23:59 Intake Total 900 / 900 30 / 30 Balance 900 / 900 30 / 30 Lab / Micro Data 05/06/25 04:21 05/06/25 04:21 Labs: Laboratory Results - last 24 hr 05/05/25 19:49: WBC 16.8 H, RBC 3.15 L, Hgb 9.1 L, Hct 30.3 L, MCV 96.2 H, MCH 28.9, MCHC 30.0 L, RDW Std Deviation 49.4 H, RDW Coeff of Humaira 14.2, Plt Count 252, MPV 10.8, Immature Gran % (Auto) 0.400, Neut % (Auto) 81.8 H, Lymph % (Auto) 9.3 L, [place] % (Auto) 7.2, Eos % (Auto) 0.8, Baso % (Auto) 0.5, Absolute Neuts (auto) 13.7 H, Absolute Lymphs (auto) 1.57, Nucleated RBC % 0, PT 13.1, INR 1.0, APTT 29.3, Sodium 142, Potassium 4.5, Chloride 101, Carbon Dioxide 25.2, Anion Gap 16 H, BUN 71 H, Creatinine 2.72 H, Estim Creat Clear Calc 19.22 L, Est GFR (MDRD) Non-Af 23 L, BUN/Creatinine Ratio 26.2 H, Glucose 242 H, Lactic Acid 2.8 H*, Calcium 8.5, Total Bilirubin 0.49, AST 43 H, ALT 44, Alkaline Phosphatase 93, Troponin T High Sens 115 H* D, [place] [address] H, Total Protein 6.4, Albumin 3.9, Globulin 2.5, Albumin/Globulin Ratio 1.5 05/05/25 20:50: Urine Color Yellow, Urine Clarity Clear, Urine pH 6.0, Ur Specific [place] 1.015, Urine Protein 30 H, Urine Glucose (UA) Normal, Urine Ketones Negative, Urine Occult Blood Negative, Urine Nitrite Negative, Urine Bilirubin Negative, Urine Urobilinogen Normal, Ur Leukocyte Esterase 25 H, Urine RBC 0 SEEN, Urine WBC 0-5 SEEN, Ur Squamous Epith Cells 0 SEEN, Urine Bacteria RARE, Urine Mucus 0 SEEN 05/05/25 21:55: Magnesium 2.3 H, Troponin T Hi Sens 2 Hr 113 H* 05/05/25 22:25: Lactic Acid 1.2 05/05/25 23:22: POC Glucose 124 H 05/05/25 23:50: Troponin T Hi Sens 4Hr 141 H* 05/06/25 00:11: Lactic Acid < 1.0 05/06/25 04:21: WBC 12.3 H, RBC 2.78 L, Hgb 8.2 L, Hct 25.8 L, MCV 92.8, MCH 29.5, MCHC 31.8 L D, RDW Std Deviation 48.0 H, RDW Coeff of Humaira 14.2, Plt Count 178, MPV 10.9, Immature Gran % (Auto) 0.500, Neut % (Auto) 94.3 H, Lymph % (Auto) 3.4 L, [place] % (Auto) 1.7, Eos % (Auto) 0.0, Baso % (Auto) 0.1, Absolute Neuts (auto) 11.6 H, Absolute Lymphs (auto) 0.42 L, Nucleated RBC % 0, Sodium 143, Potassium 4.0, Chloride 104, Carbon Dioxide 22.7, Anion Gap 16 H, BUN 75 H, Creatinine 2.46 H, Estim Creat Clear Calc 21.95 L, Est GFR (MDRD) Non-Af 26 L, BUN/Creatinine Ratio 30.3 H, Glucose 189 H, Calcium 8.3, Phosphorus 5.2 H, Total Bilirubin 0.34, AST 31, ALT 38, Alkaline Phosphatase 72, [place] [address] H, Total Protein 5.7 L, Albumin 3.3 L, Globulin 2.4, Albumin/Globulin Ratio 1.4 05/06/25 05:16: POC Glucose 204 H Micro: Microbiology 05/05/25 20:50 Urine, Clean Catch Legionella Antigen - Final 05/05/25 20:50 Urine, Clean Catch Streptococcus pneumoniae Antigen (M - Final 05/05/25 23:20 Mucosa - Nose Respiratory Panel (PCR) - Final 05/05/25 23:20 Mucosa - Nasopharyngeal Coronavirus COVID-19 PCR - Final ABG Data ABG results: ABG 05/05/25 05/05/25 05/06/25 20:48 23:45 07:08 Specimen Type ART ART ART Sample Site L Radial L Radial R Radial pH 7.44 7.47 H 7.51 H Bicarbonate Actual 27.7 H 28.0 H 27.5 H Total CO2 29 29 29 Base Excess 4 H 4 H 4 H O2 Saturation 95 96 98 O2 % 50.0 35.0 30.0 ABG pCO2 41.3 38.8 34.9 L ABG pO2 73 L 78 95 Chris Test Positive Positive Positive Respiration Rate 12 12 O2 Delivery Device BiPAP BiPAP BiPAP Vent Mode Not entered Not entered ST POC PEEP 8 8 8 Peak Inspir Pressure 14 Clinical Comments 14 8 14 8 12/8 Radiography Diagnostic Testing: Radiology Impression Chest X-Ray 05/05/25 20:00 IMPRESSION: 1. Findings compatible with CHF/volume overload. 2. Increased pulmonary opacities within the left lung, which may reflect edema or pneumonia. Reading Location: [id number] Physical Exam Const alert, oriented x3, no apparent distress, average body habitus and well nourished Constitutional Narrative: Very pleasant, elderly, white male, appears comfortable at this time on 5 L nasal cannula, no signs of respiratory distress, nursing and family at bedside HEENT head/scalp atraumatic and moist oral mucous membranes Head and Scalp: normocephalic Resp normal respiratory effort, no retractions, no use of accessory muscles and No clear to auscultation bilaterally Resp Narrative: Crackles at Baile's's bilaterally Auscultation: crackles; Negative for rhonchi or wheezes Cardio regular rate, regular rhythm, S1 normal heart sound, S2 normal heart sound, no rub, no gallops and no clicks; Negative for no murmurs Cardio Narrative: 3 out of 6 systolic murmur loudest at left lower sternal border GI normal to inspection, nondistended, normoactive bowel sounds, soft to palpation and non-tender Extremity Extremity Narrative: Trace bilateral lower extremity edema, pedal pulses are 2+, radial pulses are 2+, no cyanosis or clubbing Neuro oriented x3, moves all extremities and no focal motor deficits Speech: speech normal Psych affect normal Psych Narrative: Very pleasant, interacts appropriately Assessment & Plan Assessment/Plan (1) Acute on chronic hypoxic respiratory failure: (2) Elevated troponin: (3) Acute on chronic HFrEF (heart failure with reduced ejection fraction): (4) Mitral valve insufficiency: (5) Mild pulmonary hypertension: (6) Leukocytosis: PLAN: Plan Acute on chronic hypoxic respiratory failure secondary to acute on chronic heart failure with reduced ejection fraction/diastolic dysfunction - Patient with an EF of 40% but mitral valve insufficiency giving him an actual EF of less than 40% -? If patient would benefit from consideration for mitral valve clipping--> will have him follow-up as an outpatient with his environmental restoration planner Dr. Terrazas in [place] - Fluid restricted 1500 cc daily - Sodium restricted diet - Continue IV Bumex - Continue daily weights - No need for repeat echocardiogram as his last one was in early April - Currently on 5 L nasal cannula off of BiPAP - Would continue BiPAP at night - Wean oxygen as able - Baseline oxygen has been 2 L with exertion and not at rest - Discontinue steroids Mitral valve insufficiency - Suspect this is significantly contributing to his heart failure - Will leave to his outpatient environmental restoration planner for further evaluation but I do wonder if the patient would benefit from mitral clipping given the fact that he has had multiple exacerbations of heart failure and I suspect his mitral valve is contributing to this considerably Leukocytosis - May be stress response and is trending down - Chest x-ray was suggestive of an infiltrate so we will continue antibiotics with Zosyn for now given his recent hospitalization - If clinically stable tomorrow would recommend discontinuing because my suspicion for pneumonia is low given clinical picture Troponin elevation - Secondary to acute exacerbation of chronic heart failure - No further workup required at this time Secondary pulmonary hypertension - Diuresis as noted above COPD - Low suspicion for acute exacerbation - Continue aerosols - Discontinue steroids - Baseline oxygen status is 2 L with exertion and none of the rest DM-1 - Continue home insulin - Cardiac/carb controlled diet - Accu-Cheks as ordered - Discontinue Solu-Medrol - Repeat lab in a.m. Chronic anemia - Normocytic - Stable counts - Repeat CBC in a.m. CKD stage IV - Serum creatinine is at his baseline - Monitor closely with diuresis - Repeat BMP in a.m. 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
[2025-05-06] MEDS: Potassium Chloride Oral Tablet 20 MEQ PO (08:16)
[2025-05-06] MEDS: Magnesium Chloride 64 MG Delay Rel.Tablet 128 MG PO ×2 (08:18→21:12)
[2025-05-06] MEDS: 0.9% Saline Lock 10 ML Syringe IV ×3 (08:38→17:11)
[2025-05-06] MEDS: Piperacil/Tazobactam 3.375 GM in 0.9% Normal Saline (50mL MB+) 50 ML IV ×2 (10:50→21:11)
[2025-05-06] MEDS: Pantoprazole Sodium 40 MG in 0.9% Normal Saline (100mL MB+) 100 ML 330 MG IV (10:51)
[2025-05-06] MEDS: Insulin Glargine-YFGN 100 UNIT/ML Pen 15 UNIT SC (21:12)
[2025-05-07] VITALS (13 sets, daily range): BP systolic 113–156; BP diastolic 50–62; PULSE 57–63; RESP 14–20; TEMP 36.4–36.9; O2SAT 96–99; BMI 25.4
[2025-05-07] MEDS: Albuterol 2.5 MG/3 ML VIAL.NEB. INHALATION ×5 (04:05→22:26)
[2025-05-07 05:05] LABS: Hematocrit 22.4 % (40-54); Hemoglobin 7.2 g/dL (13.0-16.5); Immature Granulocytes Count 0.060 X10^3/uL (0.0-0.0); Mean Corp Hgb Conc 32.1 g/dL (32-36); Mean Corpuscular Volume 92.2 fL (80-94); Mean Platelet Vol. 11.4 fl (6.2-12.0); NRBC Flagged by Analyzer 0 % (0-5); Platelet Count 154 K/mm3 (150-450); RBC Distribution Width CV 14.5 % (11.6-14.6); RBC Distribution Width SD 48.5 fl (35.1-43.9); Red Blood Count 2.43 M/mm3 (4.6-6.2); White Blood Count 8.6 K/mm3 (4.4-11.0)
[2025-05-07 05:12] LABS: Prothrombin Time (Protime)PT. 14.9 SECONDS (11.7-14.9)
[2025-05-07 05:30] LABS: AST(SGOT) 34 U/L (<=37); Alanine Aminotransfer ALT/SGPT 35 U/L (<=46); Albumin, Serum 3.2 g/dL (3.4-4.8); Alkaline Phosphatase 67 U/L (40-129); Anion Gap 14 (5-15); BUN 92 mg/dL (4-19); BUN/Creat Ratio 30.4 RATIO (10-20); Calcium,Total 8.0 mg/dL (7.6-11.0); Carbon Dioxide 22.9 mmol/L (21.0-32.0); Chloride 100 mmol/L (98-108); Estimated Creatinine Clearance 17.88 ml/min (50-250); Globulin 2.0 g/dL (2.2-4.2); Glucose 407 mg/dL (70-99); Magnesium 2.6 mg/dL (1.5-2.2); Potassium 5.0 mmol/L (3.3-5.1)
[2025-05-07] MEDS: Piperacil/Tazobactam 3.375 GM in 0.9% Normal Saline (50mL MB+) 50 ML IV ×2 (05:40→20:43)
[2025-05-07] MEDS: Heparin Injection (Vial) 5,000 UNIT/ML VIAL 5000 UNIT SC ×3 (05:41→20:42)
[2025-05-07] MEDS: Potassium Chloride Oral Tablet 20 MEQ PO (08:47)
[2025-05-07] MEDS: Magnesium Chloride 64 MG Delay Rel.Tablet 128 MG PO ×2 (08:49→20:43)
[2025-05-07] MEDS: 0.9% Saline Lock 10 ML Syringe IV ×3 (08:50→20:43)
--- NOTE | 2025-05-07 09:07 | PN.HOSP_ITS ---
Reason for Visit Reason for Visit: Diagnoses Elevated white blood cell count, unspecified (05/05/25) Type 2 diabetes mellitus without complications (05/05/25) Pulmonary hypertension, unspecified (05/05/25) Nonrheumatic mitral (valve) insufficiency (05/05/25) Acute on chronic systolic (congestive) heart failure (05/05/25) Acute on chronic combined systolic (congestive) and diastolic (congestive) heart failure (05/05/25) Pneumonia, unspecified organism (05/05/25) Chronic obstructive pulmonary disease with (acute) exacerbation (05/05/25) Acute and chronic respiratory failure with hypoxia (05/05/25) Chronic kidney disease, stage 4 (severe) (05/05/25) Other specified abnormal findings of blood chemistry (05/05/25) 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 No LE edema. Objective Data Objective Data Vital Signs: Vital Signs Temp Pulse Resp BP Pulse Ox O2 Del Method O2 Flow Rate 36.4 C L 60 14 113/61 97 Nasal Cannula 2 05/07/25 08:44 05/07/25 08:44 05/07/25 08:44 05/07/25 08:44 05/07/25 08:44 05/07/25 08:44 05/07/25 08:44 FiO2 30 05/06/25 06:47 Oxygen Flow Rate (L/min) 2 Oxygen Delivery Method Nasal Cannula Weight: 73.9 kg Body Mass Index (BMI) 25.4 Intake & Output: Intake and Output for Last 24 Hours 05/05/25 05/06/25 05/07/25 23:59 23:59 23:59 Intake Total 900 / 900 1230 / 1410 230 / 230 Output Total 1100 / 1500 600 / 600 Balance 900 / 900 130 / -90 -370 / -370 Lab / Micro Data 05/07/25 04:44 05/07/25 04:44 Labs: Laboratory Results - last 24 hr 05/06/25 12:07: POC Glucose 256 H 05/06/25 17:01: POC Glucose 421 H 05/06/25 21:09: POC Glucose 444 H 05/07/25 04:44: WBC 8.6, RBC 2.43 L, Hgb 7.2 L, Hct 22.4 L, MCV 92.2, MCH 29.6, MCHC 32.1, RDW Std Deviation 48.5 H, RDW Coeff of Humaira 14.5, Plt Count 154, MPV 11.4, Immature Gran % (Auto) 0.700, Neut % (Auto) 79.5 H, Lymph % (Auto) 13.1 L, [place] % (Auto) 6.5, Eos % (Auto) 0.0, Baso % (Auto) 0.2, Absolute Neuts (auto) 6.9, Absolute Lymphs (auto) 1.13, Nucleated RBC % 0, PT 14.9, INR 1.1, Sodium 136, Potassium 5.0, Chloride 100, Carbon Dioxide 22.9, Anion Gap 14, BUN 92 H, C reatinine 3.03 H, Estim Creat Clear Calc 17.88 L, Est GFR (MDRD) Non-Af 20 L, B UN/Creatinine Ratio 30.4 H, Glucose 407 H, Calcium 8.0, Phosphorus 6.1 H, M agnesium 2.6 H, Total Bilirubin 0.46, AST 34, ALT 35, Alkaline Phosphatase 67, T otal Protein 5.2 L, Albumin 3.2 L, Globulin 2.0 L, Albumin/Globulin Ratio 1.6 05/07/25 06:26: POC Glucose 333 H Micro: Microbiology 05/05/25 20:50 Urine, Catheterized Urine Culture - Preliminary Mixed Gram Positive Organisms 05/05/25 20:50 Urine, Clean Catch Legionella Antigen - Final 05/05/25 20:50 Urine, Clean Catch Streptococcus pneumoniae Antigen (M - Final 05/05/25 23:20 Mucosa - Nose Respiratory Panel (PCR) - Final 05/05/25 23:20 Mucosa - Nasopharyngeal Coronavirus COVID-19 PCR - Final Physical Exam Const alert and no apparent distress HEENT head/scalp atraumatic and moist oral mucous membranes Resp normal respiratory effort and no retractions Resp Narrative: diminished bilaterally. Cardio regular rate, regular rhythm, S1 normal heart sound and S2 normal heart sound GI normal to inspection, nondistended, normoactive bowel sounds, soft to palpation, non-tender and non-distended Neuro Sensorium / Orientation: awake and alert Assessment & Plan Assessment/Plan (1) Acute on chronic HFrEF (heart failure with reduced ejection fraction): PLAN: EF 40% Creatinine up from 3.03 from 2.46. DC IV bumetanide change back to PO furosemide. PLAN: Plan Anemia: Hg 7.2. Monitor. Check TSH, B12, Folate, Iron, TIBC, Ferritin. Troponin elevation: 113 to 141. Type 2 demand ischemia from CHF, but also skewed given CKD CKD 4: creatinine up now. Continue to monitor. BPH: tamsulosin, finasteride DM2: glargineSSI. VTE prophylaxis: SQ heparin. Disposition: TBD. Hopefully ready in 1-2 days. Charges/Coding Visit Charges Inpatient E&M: 45214 Subs Hosp L2
[2025-05-07] MEDS: Pantoprazole Sodium 40 MG in 0.9% Normal Saline (100mL MB+) 100 ML 330 MG IV (09:57)
--- NOTE | 2025-05-07 10:45 | CASEMGMT ---
FIDEL VALENCIA chart review: Patient was admitted 04/19-04/22/25 for acute exacerbation of CHF and COPD, acute hypoxic respiratory failure. See assessment from 04/03/25. Patient was discharged to home with [facility]en hospital support, [facility], Palliative Care Consult, nebulizer and baseline home oxygen, and follow-up plans in place. Patient returned to [facility] ED for increase SOB and was admitted for acute exacerbation of CHF and COPD, PNA, and Leukocytosis. Patient was requiring 6lpm of oxygen and was placed on bipap. FIDEL VALENCIA in to discuss discharge planning and readmission, son at bedside. Patient states he was taking his medications as prescribed and wearing oxygen as ordered. Patient states [facility] has been seeing patient. Patient states he was attending appts as scheduled. Patient states he was trying to avoid salty foods. Patient wishes to return to home with resumption of [facility]. Will monitor for increase in home oxygen at discharge. Patient denied further needs and had no further questions.
--- NOTE | 2025-05-07 11:35 | CASEMGMT ---
Addendum entered by Almaz Rodriguez 05/07/25 11:41: Pt is active and rec's SN & PT. RN CM updated. Almaz Rodriguez DC Planning Asst. Original Note: Discharge Planning SHERRON sent to [facility] with note asking which disciplines were being received. Awaiting response. Almaz Rodriguez DC Planning Asst.
[2025-05-07] MEDS: Insulin Glargine-YFGN 100 UNIT/ML Pen 15 UNIT SC (20:43)
--- NOTE | 2025-05-07 23:17 | CPS ---
pt declined bipap this evening
[2025-05-08] VITALS (13 sets, daily range): BP systolic 154–173; BP diastolic 50–98; PULSE 60–79; RESP 18–20; TEMP 36.2–36.9; O2SAT 93–98; BMI 25.7
[2025-05-08] MEDS: Albuterol 2.5 MG/3 ML VIAL.NEB. INHALATION (01:20)
[2025-05-08 05:45] LABS: Hematocrit 27.0 % (40-54); Hemoglobin 8.6 g/dL (13.0-16.5); Immature Granulocytes Count 0.080 X10^3/uL (0.0-0.0); Mean Corp Hgb Conc 31.9 g/dL (32-36); Mean Corpuscular Volume 91.5 fL (80-94); Mean Platelet Vol. 11.0 fl (6.2-12.0); NRBC Flagged by Analyzer 0 % (0-5); Platelet Count 193 K/mm3 (150-450); RBC Distribution Width CV 14.3 % (11.6-14.6); RBC Distribution Width SD 47.8 fl (35.1-43.9); Red Blood Count 2.95 M/mm3 (4.6-6.2); White Blood Count 11.8 K/mm3 (4.4-11.0)
[2025-05-08] MEDS: Heparin Injection (Vial) 5,000 UNIT/ML VIAL 5000 UNIT SC ×3 (05:55→20:10)
[2025-05-08 06:27] LABS: Anion Gap 14 (5-15); BUN 85 mg/dL (4-19); BUN/Creat Ratio 29.0 RATIO (10-20); Calcium,Total 8.6 mg/dL (7.6-11.0); Carbon Dioxide 23.2 mmol/L (21.0-32.0); Chloride 103 mmol/L (98-108); Estimated Creatinine Clearance 18.61 ml/min (50-250); Ferritin 92 ng/mL (37-417); Glucose 247 mg/dL (70-99); Iron 22 ug/dL (65-175); Iron Binding Capacity,Total 309 ug/dL (250-450); Iron Binding Capacity,Unsat 287 ug/dL (228-428); Potassium 4.5 mmol/L (3.3-5.1); Vitamin B12 670 pg/mL (180-914)
--- NOTE | 2025-05-08 08:12 | PN.HOSP_ITS ---
Reason for Visit Reason for Visit: Diagnoses Elevated white blood cell count, unspecified (05/05/25) Type 2 diabetes mellitus without complications (05/05/25) Pulmonary hypertension, unspecified (05/05/25) Nonrheumatic mitral (valve) insufficiency (05/05/25) Acute on chronic systolic (congestive) heart failure (05/05/25) Acute on chronic combined systolic (congestive) and diastolic (congestive) heart failure (05/05/25) Pneumonia, unspecified organism (05/05/25) Chronic obstructive pulmonary disease with (acute) exacerbation (05/05/25) Acute and chronic respiratory failure with hypoxia (05/05/25) Chronic kidney disease, stage 4 (severe) (05/05/25) Other specified abnormal findings of blood chemistry (05/05/25) 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 Objective Data Objective Data Vital Signs: Vital Signs Temp Pulse Resp BP Pulse Ox O2 Del Method O2 Flow Rate 36.5 C L 77 20 H 171/84 H 98 Bi-pap 45 05/08/25 06:04 05/08/25 06:04 05/08/25 06:04 05/08/25 06:04 05/08/25 06:04 05/08/25 06:04 05/08/25 06:04 FiO2 30 05/06/25 06:47 Oxygen Flow Rate (L/min) 45 Oxygen Delivery Method Bi-pap Weight: 74.4 kg Body Mass Index (BMI) 25.7 Intake & Output: Intake and Output for Last 24 Hours 05/06/25 05/07/25 05/08/25 23:59 23:59 23:59 Intake Total 1230 / 1410 820 / 820 50 / 50 Output Total 1100 / 1500 1650 / 1650 525 / 525 Balance 130 / -90 -830 / -830 -475 / -475 Lab / Micro Data 05/08/25 05:35 05/08/25 05:35 Labs: Laboratory Results - last 24 hr 05/07/25 10:57: POC Glucose 315 H 05/07/25 16:20: POC Glucose 342 H 05/07/25 20:39: POC Glucose 344 H 05/08/25 05:35: WBC 11.8 H, RBC 2.95 L, Hgb 8.6 L, Hct 27.0 L, MCV 91.5, MCH 29.2, MCHC 31.9 L, RDW Std Deviation 47.8 H, RDW Coeff of [place] 14.3, Plt Count 193, MPV 11.0, Immature Gran % (Auto) 0.700, Neut % (Auto) 85.1 H, Lymph % (Auto) 8.7 L, [place] % (Auto) 4.6, Eos % (Auto) 0.6, Baso % (Auto) 0.3, Absolute Neuts (auto) 10.0 H, Absolute Lymphs (auto) 1.03, Nucleated RBC % 0, Sodium 140, Potassium 4.5, Chloride 103, Carbon Dioxide 23.2, Anion Gap 14, BUN 85 H, C reatinine 2.91 H, Estim Creat Clear Calc 18.61 L, Est GFR (MDRD) Non-Af 21 L, B UN/Creatinine Ratio 29.0 H, Glucose 247 H, Calcium 8.6, Iron 22 L, TIBC 309, I jerilyn Saturation 7.0 L, Unsaturated IBC 287, Ferritin 92, Vitamin B12 670, TSH 0.979 05/08/25 06:12: POC Glucose 241 H Micro: Microbiology 05/05/25 19:52 Blood Culture (Wb) - Anticubital Left Blood Culture - Preliminary No growth in 48 hours. 05/05/25 19:51 Blood Culture (Wb) - Anticubital Right Blood Culture - Preliminary No growth in 48 hours. 05/05/25 20:50 Urine, Catheterized Urine Culture - Final Mixed Gram Positive Organisms 05/05/25 20:50 Urine, Clean Catch Legionella Antigen - Final 05/05/25 20:50 Urine, Clean Catch Streptococcus pneumoniae Antigen (M - Final 05/05/25 23:20 Mucosa - Nose Respiratory Panel (PCR) - Final 05/05/25 23:20 Mucosa - Nasopharyngeal Coronavirus COVID-19 PCR - Final Physical Exam Const alert Constitutional Narrative: on BiPAP. HEENT head/scalp atraumatic and moist oral mucous membranes Resp normal respiratory effort Auscultation: wheezes Cardio regular rate, regular rhythm, S1 normal heart sound and S2 normal heart sound GI normal to inspection, nondistended, normoactive bowel sounds, soft to palpation, non-tender and non-distended Extremity normal to inspection Neuro Sensorium / Orientation: awake and alert Psych affect normal Assessment & Plan Assessment/Plan (1) Acute on chronic HFrEF (heart failure with reduced ejection fraction): PLAN: EF 40% Creatinine up from 3.03 from 2.46. DC IV bumetanide change back to PO furosemide. Increased respiratory distress. Will add BDs and methylprednisolone. (2) MADONNA (acute kidney injury): PLAN: Improved. Creatinine up 2.46 to 3.03 down to 2.91 Likely 2/2 overdiuresis. PLAN: Plan Anemia: Hg 7.2. B12, TSH WNL. Iron low. Will given dose of IV iron. Troponin elevation: 113 to 141. Type 2 demand ischemia from CHF, but also skewed given CKD CKD 4: creatinine up now. Continue to monitor. BPH: tamsulosin, finasteride DM2: glargine SSI. HANNAH: BiPAP. VTE prophylaxis: SQ heparin. Disposition: TBD. DW patient's at bedside. Charges/Coding Visit Charges Inpatient E&M: 11531 Subs Hosp L2
[2025-05-08] MEDS: Potassium Chloride Oral Tablet 20 MEQ PO (08:43)
[2025-05-08] MEDS: Magnesium Chloride 64 MG Delay Rel.Tablet 128 MG PO ×2 (08:44→20:09)
[2025-05-08] MEDS: 0.9% Saline Lock 10 ML Syringe IV ×3 (08:57→20:14)
[2025-05-08] MEDS: Pantoprazole Sodium 40 MG in 0.9% Normal Saline (100mL MB+) 100 ML 330 MG IV (08:57)
[2025-05-08] MEDS: Piperacil/Tazobactam 3.375 GM in 0.9% Normal Saline (50mL MB+) 50 ML IV ×2 (10:17→20:13)
--- NOTE | 2025-05-08 13:44 | CHAPLAIN ---
Type of Pastoral Visit _x__ Initial Visit ___ Follow-up Visit ___ On-call Visit ___ General Patient Visit ___ Spiritual Assessment ___ Family Conference ___ Bereavement ___ Rapid Response ___ Code Blue ___ Other (describe below) Pastoral Care Referral From _x__ Patient ___ Family ___ Nurse ___ Physician ___ Hotel Room Attendant ___ Staffing Manager ___ Other (describe below) Sacrament/Intervention _x__ Active listening ___ Anointing ___ Confucianist ___ Bereavement ___ Communion ___ Amber exploration ___ _x__ Life review _x__ Prayer ___ Reconciliation ___ Sacrament of Sick _x__ Supportive presence ___ Wedding ___ Other (describe below) Pastoral Comments patient admits to feeling weak and tired from breathing issues and lack of sleep; family members are in the room and supportive; pt is expressive of his feelings of 'fear when sob episodes occur' and has active thoughts about his future with multiple health concerns; listening and asking more questions allowed patient to give his thoughts and feelings expression; pt welcomed presence and prayer
[2025-05-08] MEDS: Sodium Ferric Gluconat/Sucrose 125 MG in 0.9% Normal Saline (100mL Bag) 100 ML 110 MG IV (15:22)
[2025-05-08] MEDS: Insulin Glargine-YFGN 100 UNIT/ML Pen 15 UNIT SC (20:08)
--- NOTE | 2025-05-08 23:33 | CPS ---
pt declined bipap at this time
[2025-05-09] VITALS (10 sets, daily range): BP systolic 133–170; BP diastolic 71–96; PULSE 56–69; RESP 16; TEMP 36.5–36.6; O2SAT 85–99; BMI 23.3
[2025-05-09] MEDS: 0.9% Saline Lock 10 ML Syringe IV (05:32)
[2025-05-09] MEDS: Heparin Injection (Vial) 5,000 UNIT/ML VIAL 5000 UNIT SC ×2 (05:32→14:42)
[2025-05-09 06:10] LABS: Hematocrit 23.8 % (40-54); Hemoglobin 7.6 g/dL (13.0-16.5); Immature Granulocytes Count 0.040 X10^3/uL (0.0-0.0); Mean Corp Hgb Conc 31.9 g/dL (32-36); Mean Corpuscular Volume 91.9 fL (80-94); Mean Platelet Vol. 11.5 fl (6.2-12.0); NRBC Flagged by Analyzer 0 % (0-5); POSITIVE DIFFERENTIAL YES; Platelet Count 153 K/mm3 (150-450); RBC Distribution Width CV 14.3 % (11.6-14.6); RBC Distribution Width SD 47.9 fl (35.1-43.9); Red Blood Count 2.59 M/mm3 (4.6-6.2); White Blood Count 6.3 K/mm3 (4.4-11.0)
[2025-05-09 06:36] LABS: Anion Gap 15 (5-15); BUN 80 mg/dL (4-19); BUN/Creat Ratio 27.8 RATIO (10-20); Calcium,Total 8.3 mg/dL (7.6-11.0); Carbon Dioxide 22.0 mmol/L (21.0-32.0); Chloride 103 mmol/L (98-108); Estimated Creatinine Clearance 18.87 ml/min (50-250); Glucose 336 mg/dL (70-99); Potassium 4.1 mmol/L (3.3-5.1)
--- NOTE | 2025-05-09 07:53 | PCM.PN.HOSP ---
Reason for Visit Reason for Visit: Diagnoses Elevated white blood cell count, unspecified (05/05/25) Type 2 diabetes mellitus without complications (05/05/25) Pulmonary hypertension, unspecified (05/05/25) Nonrheumatic mitral (valve) insufficiency (05/05/25) Acute on chronic systolic (congestive) heart failure (05/05/25) Acute on chronic combined systolic (congestive) and diastolic (congestive) heart failure (05/05/25) Pneumonia, unspecified organism (05/05/25) Chronic obstructive pulmonary disease with (acute) exacerbation (05/05/25) Acute and chronic respiratory failure with hypoxia (05/05/25) Acute kidney failure, unspecified (05/05/25) Chronic kidney disease, stage 4 (severe) (05/05/25) Other specified abnormal findings of blood chemistry (05/05/25) 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 (05/05/25) Subjective Subjective feeling better Objective Data Objective Data Vital Signs: Vital Signs Temp Pulse Resp BP Pulse Ox O2 Del Method O2 Flow Rate 36.5 C L 69 16 170/71 H 97 Nasal Cannula 3 05/09/25 03:45 05/09/25 05:31 05/09/25 03:45 05/09/25 05:31 05/09/25 03:45 05/09/25 03:45 05/09/25 03:45 FiO2 30 05/06/25 06:47 Oxygen Flow Rate (L/min) 3 Oxygen Delivery Method Nasal Cannula Weight: 67.4 kg Body Mass Index (BMI) 23.3 Intake & Output: Intake and Output for Last 24 Hours 05/07/25 05/08/25 05/09/25 23:59 23:59 23:59 Intake Total 820 / 820 1230 / 1230 170 / 170 Output Total 1650 / 1650 1575 / 1925 550 / 550 Balance -830 / -830 -345 / -695 -380 / -380 Lab / Micro Data 05/09/25 05:27 05/09/25 05:27 Labs: Laboratory Results - last 24 hr 05/08/25 11:20: POC Glucose 227 H 05/08/25 16:21: POC Glucose 247 H 05/08/25 19:54: POC Glucose 315 H 05/09/25 05:27: WBC 6.3, RBC 2.59 L, Hgb 7.6 L, Hct 23.8 L, MCV 91.9, MCH 29.3, MCHC 31.9 L, RDW Std Deviation 47.9 H, RDW Coeff of [place]air[place] 14.3, Plt Count 153, MPV 11.5, Immature Gran % (Auto) 0.600, Neut % (Auto) 93.3 H, Lymph % (Auto) 4.3 L, [place] % (Auto) 1.6, Eos % (Auto) 0.0, Baso % (Auto) 0.2, Absolute Neuts (auto) 5.9, Absolute Lymphs (auto) 0.27 L, Nucleated RBC % 0, Sodium 140, Potassium 4.1, Chloride 103, Carbon Dioxide 22.0, Anion Gap 15, BUN 80 H, Creatinine 2.87 H, Estim Creat Clear Calc 18.87 L, Est GFR (MDRD) Non-Af 21 L, BUN/Creatinine Ratio 27.8 H, Glucose 336 H, Calcium 8.3 05/09/25 06:18: POC Glucose 309 H Micro: Microbiology 05/05/25 19:52 Blood Culture (Wb) - Anticubital Left Blood Culture - Preliminary No growth in 48 hours. 05/05/25 19:51 Blood Culture (Wb) - Anticubital Right Blood Culture - Preliminary No growth in 48 hours. 05/05/25 20:50 Urine, Catheterized Urine Culture - Final Mixed Gram Positive Organisms 05/05/25 20:50 Urine, Clean Catch Legionella Antigen - Final 05/05/25 20:50 Urine, Clean Catch Streptococcus pneumoniae Antigen (M - Final 05/05/25 23:20 Mucosa - Nose Respiratory Panel (PCR) - Final 05/05/25 23:20 Mucosa - Nasopharyngeal Coronavirus COVID-19 PCR - Final Physical Exam Const alert and no apparent distress HEENT head/scalp atraumatic and moist oral mucous membranes Resp normal respiratory effort, no retractions, no use of accessory muscles and clear to auscultation bilaterally Cardio regular rate, regular rhythm, S1 normal heart sound and S2 normal heart sound GI normal to inspection, nondistended, normoactive bowel sounds, soft to palpation, non-tender and non-distended Assessment & Plan Assessment/Plan (1) Acute on chronic HFrEF (heart failure with reduced ejection fraction): PLAN: EF 40% Creatinine up from 3.03 from 2.46. DC IV bumetanide change back to PO furosemide. Increased respiratory distress. Will add BDs and methylprednisolone. Suspect pt has underlying COPD/asthma. (2) MADONNA (acute kidney injury): PLAN: Improving. Creatinine up 2.46 to 3.03 down to 2.91 Likely 2/2 overdiuresis. PLAN: Plan Anemia: Hg 7.6. B12, TSH WNL. Iron low. Will given dose of IV iron. Troponin elevation: 113 to 141. Type 2 demand ischemia from CHF, but also skewed given CKD CKD 4: creatinine up now. Continue to monitor. BPH: tamsulosin, finasteride DM2: glargine SSI. HANNAH: BiPAP. VTE prophylaxis: SQ heparin. Disposition: TBD. check home oxygen evaluation. Charges/Coding Visit Charges Inpatient E&M: 60961 Subs Hosp L2
[2025-05-09] MEDS: Potassium Chloride Oral Tablet 20 MEQ PO (08:58)
[2025-05-09] MEDS: Magnesium Chloride 64 MG Delay Rel.Tablet 128 MG PO (09:00)
[2025-05-09] MEDS: Piperacil/Tazobactam 3.375 GM in 0.9% Normal Saline (50mL MB+) 50 ML IV (09:57)
[2025-05-09] MEDS: Pantoprazole Sodium 40 MG in 0.9% Normal Saline (100mL MB+) 100 ML 330 MG IV (10:10)
[2025-05-09 15:08] LABS: Folate, Hemolysate Test 444.0 ng/mL (Not Estab.); Folate, RBC (Hct) Test 28.6 % (37.5-51.0); Folates, RBC Test 1552 ng/mL (>498)
--- NOTE | 2025-05-09 15:42 | PCM.DC.SUM ---
Providers Date of Admission: 05/05/25 Primary Care Physician: Ryley Montenegro MD Reason For Visit: AE CHF, AE COPD, PNA, LEUKOCYTOSIS, LACTIC Diagnosis Discharge Diagnosis (1) Acute on chronic HFrEF (heart failure with reduced ejection fraction): Status: Chronic Code(s): I50.23 - Acute on chronic systolic (congestive) heart failure Plan: EF 40% Creatinine up from 3.03 from 2.46. DC IV bumetanide change back to PO furosemide. Increased respiratory distress. Will add BDs and methylprednisolone. Suspect pt has underlying COPD/asthma. (2) MADONNA (acute kidney injury): Status: Acute Code(s): N17.9 - Acute kidney failure, unspecified Plan: Improving. Creatinine up 2.46 to 3.03 down to 2.91 Likely 2/2 overdiuresis. Plan Anemia: Hg 7.6. B12, TSH WNL. Iron low. Will given dose of IV iron. Troponin elevation: 113 to 141. Type 2 demand ischemia from CHF, but also skewed given CKD CKD 4: creatinine up now. Continue to monitor. BPH: tamsulosin, finasteride DM2: glargine SSI. HANNAH: BiPAP. VTE prophylaxis: SQ heparin. Disposition: TBD. check home oxygen evaluation. Medications at Discharge Home Medications insulin glargine 100 unit/mL (3 mL) subcutaneous pen (Lantus Solostar U-100 Insulin) 15 unit subcut QPM diabetes 08/05/21 insulin lispro 100 unit/mL subcutaneous pen 0 unit subcut TID SLIDING SCALE 08/05/21 tamsulosin 0.4 mg capsule (Flomax) 0.4 mg PO DAILY urination 08/05/21 ezetimibe 10 mg tablet 10 mg PO DAILY cholesterol 04/06/24 blood sugar diagnostic (Contour Next Test Strips) 09/12/24 hydralazine 50 mg tablet 50 mg PO Q8H BP 04/03/25 albuterol sulfate 2.5 mg/3 mL (0.083 %) solution for nebulization 2.5 mg (3 mL) inhalation Q2H PRN PRN SOB &/OR WHEEZING 30 days #180 mL 04/22/25 albuterol sulfate 90 mcg/actuation breath activated powder inhaler (ProAir RespiClick) 2 inh inhalation Q6H PRN shortness of breath or wheezing #1 ea 04/22/25 carvedilol 25 mg tablet 25 mg PO BIDCM blood pressure #60 tabs 04/22/25 furosemide 40 mg tablet 40 mg PO BIDLX water pill #60 tabs 04/22/25 isosorbide mononitrate 30 mg tablet,extended release 24 hr 30 mg PO DAILY BP #30 tabs 04/22/25 nebulizer and compressor #1 ea 04/22/25 finasteride 5 mg tablet 5 mg PO DAILY prostate 05/05/25 prednisone 20 mg tablet 40 mg (2 x 20 mg) PO DAILY #10 tabs 05/09/25 Hospital Course Operations None Procedures None Summary of Care Provided Minutes Spent on Discharge: 35 Hospital Course: This is an 79-year-old male presents with shortness of breath. Found to have was concerning for CHF exacerbation but did develop acute kidney injury despite being on the IV bumetanide. Patient was converted back to his normal dosing of furosemide and his kidney function has since improved. On the eighth, patient became extremely acutely short of breath and was placed back on BiPAP. Patient has a wheezes and was started on steroids. He subsequently has done better. Patient does have a very extensive smoking history, about 60 years. Never been formally evaluated for COPD or asthma. Though Tolly concerning he does have underlying COPD. Did recommend to the patient and his that he follow-up with pulmonology to have a pulmonary function test. His inquired about having a BiPAP at home. Said that he would need to qualify for that as outpatient to be evaluated by pulmonary and have likely an outpatient sleep study. And actually this was my sentiment might seen him to 20 seconds and felt that tomorrow's respiratory issues may have been more pulmonary rather than CHF or plated and did recommend he follow-up with skilled nursing facility counselor. Patient has a follow-up appointment with pulmonary medicine on of this month. Weight / BMI Weight Weight: 67.4 kg Body Mass Index (BMI) 23.3 ABG / Lab / Microbiology Data 05/09/25 05:27 05/09/25 05:27 Laboratory: Laboratory Results - last 24 hr 05/08/25 05:35: RBC Folate Hemolysate 444.0, RBC Folate 1552, Hematocrit 28.6 L 05/08/25 16:21: POC Glucose 247 H 05/08/25 19:54: POC Glucose 315 H 05/09/25 05:27: WBC 6.3, RBC 2.59 L, Hgb 7.6 L, Hct 23.8 L, MCV 91.9, MCH 29.3, MCHC 31.9 L, RDW Std Deviation 47.9 H, RDW Coeff of Humaira 14.3, Plt Count 153, MPV 11.5, Immature Gran % (Auto) 0.600, Neut % (Auto) 93.3 H, Lymph % (Auto) 4.3 L, [place] % (Auto) 1.6, Eos % (Auto) 0.0, Baso % (Auto) 0.2, Absolute Neuts (auto) 5.9, Absolute Lymphs (auto) 0.27 L, Nucleated RBC % 0, Sodium 140, Potassium 4.1, Chloride 103, Carbon Dioxide 22.0, Anion Gap 15, BUN 80 H, Creatinine 2.87 H, Estim Creat Clear Calc 18.87 L, Est GFR (MDRD) Non-Af 21 L, BUN/Creatinine Ratio 27.8 H, Glucose 336 H, Calcium 8.3 05/09/25 06:18: POC Glucose 309 H 05/09/25 12:29: POC Glucose 414 H Microbiology: Microbiology 05/05/25 19:52 Blood Culture (Wb) - Anticubital Left Blood Culture - Preliminary No growth in 48 hours. 05/05/25 19:51 Blood Culture (Wb) - Anticubital Right Blood Culture - Preliminary No growth in 48 hours. 05/05/25 20:50 Urine, Catheterized Urine Culture - Final Mixed Gram Positive Organisms 05/05/25 20:50 Urine, Clean Catch Legionella Antigen - Final 05/05/25 20:50 Urine, Clean Catch Streptococcus pneumoniae Antigen (M - Final 05/05/25 23:20 Mucosa - Nose Respiratory Panel (PCR) - Final 05/05/25 23:20 Mucosa - Nasopharyngeal Coronavirus COVID-19 PCR - Final D/C Instructions Discharge Diet: Low fat / Low cholesterol and - (1.5 liters (50 ounces or 6.5 cups) fluid per day. ) DC O2, CPAP, BIPAP Needs Home O2 Discharge instructions: Yes Type of respiratory needs?: Oxygen Oxygen frequency: Continuous Continuous oxygen liters per minute: 3 DC home with Oxygen: Yes Home O2 MD Review: I have reviewed the oxygen testing, and the patient qualifies for home oxygen equipment and portability. The patient is mobile in the home and the community. Meaningful Use Info Meaningful Use Meaningful Use Diagnoses (Choose all that apply): CHF CHF PASCALE/ARB ordered at discharge?: No Reason PASCALE/ARB not ordered?: Worsening renal disease Documented LVEF (%): 40 Ischemic Stroke Statin Dosing Therapy Reference: STATIN DOSE THERAPY REFERENCE: * Patients > 75 years receive moderate or high dose statin therapy. * Patients 75 years or YOUNGER should receive HIGH intensity statin dose unless contraindicated. You will be required to document reason for non-treatment if statin daily dose does not meet guidelines. HIGH DOSE STATIN THERAPY DAILY Atorvastatin > than or = to 40 mg Rosuvastatin > than or = to 20 mg Amlodipine + Atorvastatin > than or = to 2.5/40 mg Ezetimibe + Simvastatin 10/80 mg Simvastatin 80mg Discharge Plan Admission Admit Date/Time: 05/05/25 22:01 Primary Reason for Your Visit: Shortness of breath. Attending Provider: Ez Fonseca Primary Care Provider: Ryley Montenegro Consulting Providers: Tj Rizzo; Carlita Raygoza Instructions Additional Instructions / Restrictions: You had shortness of breath. Initially felt to be heart failure exacerbation but it seems more likely he may have some underlying lung disease such as COPD (emphysema) or asthma. Will have you on steroids to help with this episode. As per the last admission that you had follow-up with pulmonology. He has been appointment on the th of this month. They will determine what additional testing such as pulmonary function test, sleep study would be indicated. Discharge Orders/Prescriptions Prescriptions: New prednisone 20 mg tablet 40 mg PO DAILY Qty: 10 0RF Continued ezetimibe 10 mg tablet 10 mg PO DAILY tamsulosin [Flomax] 0.4 mg Capsule 0.4 mg PO DAILY insulin lispro 100 unit/mL Insulin Pen 0 unit SUBCUT TID insulin glargine [Lantus Solostar U-100 Insulin] 100 unit/mL (3 mL) Insulin Pen 15 unit SUBCUT QPM hydralazine 50 mg tablet 50 mg PO Q8H (DME) Contour Next Test Strips Strip MISCELLANEOUS 4X/DAY albuterol sulfate 2.5 mg /3 mL (0.083 %) Solution For Nebulization 2.5 mg inhalation Q2H PRN PRN (Reason: SOB &/OR WHEEZING) 30 Days Qty: 180 0RF furosemide 40 mg Tablet 40 mg PO BIDLX Qty: 60 0RF carvedilol 25 mg Tablet 25 mg PO BIDCM Qty: 60 0RF isosorbide mononitrate 30 mg Tablet Extended Release 24 Hr 30 mg PO DAILY Qty: 30 0RF ProAir RespiClick 90 mcg/actuation aerosol powdr breath activated 2 inh inhalation Q6H PRN (Reason: shortness of breath or wheezing) Qty: 1 0RF (DME) nebulizer and compressor Device See Rx Instructions .Route Qty: 1 0RF Rx Instructions: As directed finasteride 5 mg tablet 5 mg PO DAILY Referrals / Follow Up: [facility] [Provider Group] - 05/24/25 10:15 am Ryley Montenegro MD [Primary Care Provider] - Within 2 Weeks Disposition Disposition (needs filled in before D/C Order can be placed): Home, Self Care Charges/Coding Visit Charges Inpatient E&M: 73575 Disch Hosp >30min
--- NOTE | 2025-05-09 15:51 | CASEMGMT ---
Patient has order for discharge. Patient requires increase in home oxygen, script received and referral sent to [facility]. Patient has oxygen for at discharge. Patient denies further needs at discharge. FIDEL VALENCIA updated DC maintenance planning clerk to update [facility] [place]. FIDEL VALENCIA updated DC plan.
--- NOTE | 2025-05-11 15:02 | CASEMGMT ---
FIDEL VALENCIA received VM from patient's stating that she called [facility] and since they declined services last referral as they were busy with appts, that Palliative is requesting a new referral. FIDEL VALENCIA updated hospitalist and order received for referral. FIDEL VALENCIA completed screening tool and referral sent to [facility]. FIDEL VALENCIA called and updated . had no further questions or concerns.
== END 2025-05-09 17:57 | disposition home or self-care (01) | DRG 291 ==
LOC: ED 21:45 → PCU 22:10
PROVIDERS: Internal Medicine; Admitting Provider Internal Medicine; Emergency Provider Emergency Medicine; PCP Family Medicine
DX: I13.0 Hypertensive heart and chronic kidney disease with heart failure and stage 1 through stage 4 chronic kidney disease, or unspecified chronic kidney disease (principal); I50.23 Acute on chronic systolic (congestive) heart failure; E87.20 Acidosis, unspecified; J44.0 Chronic obstructive pulmonary disease with (acute) lower respiratory infection; N18.4 Chronic kidney disease, stage 4 (severe); I27.29 Other secondary pulmonary hypertension; E10.22 Type 1 diabetes mellitus with diabetic chronic kidney disease; D64.9 Anemia, unspecified; Z66 Do not resuscitate; I34.0 Nonrheumatic mitral (valve) insufficiency; I25.10 Atherosclerotic heart disease of native coronary artery without angina pectoris; K21.9 Gastro-esophageal reflux disease without esophagitis; Z79.4 Long term (current) use of insulin; E78.5 Hyperlipidemia, unspecified; G47.33 Obstructive sleep apnea (adult) (pediatric); I25.2 Old myocardial infarction; F17.210 Nicotine dependence, cigarettes, uncomplicated; N40.1 Benign prostatic hyperplasia with lower urinary tract symptoms; Z79.899 Other long term (current) drug therapy; Z82.49 Family history of ischemic heart disease and other diseases of the circulatory system; Z86.16 Personal history of COVID-19
CPT/HCPCS: 36415; 36600; 71045; 80048; 80053; 81001; 82607; 82728; 82747; 82803; 82962; 83540; 83550; 83605; 83735; 83880; 84100; 84443; 84484; 85014; 85025; 85610; 85730; 87040; 87086; 87088; 87449; 87633; 87635; 93005; 94002; 94003; 94640; 94762; 97116; 97162; 97166; 97530; 97535; 97802; 97803; 99252; 99285; A4216; G0463; J0696; J2916

== ENCOUNTER 2025-05-13 13:28 | Inpatient (IN) | payer MEDICARE, SELFPAY ==
[2025-05-13] VITALS (48 sets, daily range): BP systolic 107–206; BP diastolic 39–125; PULSE 57–119; RESP 12–28; TEMP 36.2–37.3; O2SAT 75–100; BMI 21.1; BMI 21.4
--- NOTE | 2025-05-13 13:35 | EKG12_ITS ---
Test Reason : SOB Blood Pressure : */* mmHG Vent. Rate : 106 BPM Atrial Rate : 106 BPM P-R Int : 148 ms QRS Dur : 102 ms QT Int : 360 ms P-R-T Axes : 74 45 261 degrees QTcB Int : 478 ms Sinus tachycardia with Premature atrial complexes Left ventricular hypertrophy with repolarization abnormality ( [place] product ) Cannot rule out Septal infarct (cited on or before 04-Apr-2025) Abnormal ECG Confirmed by Breezy Campbell ([id number]), editor city DANISH MALDONADO ([id number]) on 05/14/2025 1:05:22 PM Referred By: Confirmed By: Breezy Campbell
--- NOTE | 2025-05-13 13:54 | EDS_ITS ---
HPI History of Present Illness Chief Complaint: Shortness of Breath [facility] Medical History MADONNA (acute kidney injury) HFrEF (heart failure with reduced ejection fraction) ASCVD (arteriosclerotic cardiovascular disease) CKD (chronic kidney disease) stage 3, GFR 30-59 ml/min CKD (chronic kidney disease), stage IV Non-STEMI (non-ST elevated myocardial infarction) Bradycardia Anemia LV dysfunction Chronic anemia Tobacco use COPD (chronic obstructive pulmonary disease) HLD (hyperlipidemia) HTN (hypertension) BPH (benign prostatic hyperplasia) Chronic low back pain with sciatica Diabetes mellitus, type 2 CKD (chronic kidney disease), stage III Pneumonia COVID Wears glasses Wears dentures Medical History no medical history Home Medications ?Medication ?Instructions ?Recorded ?Last Taken ?Type insulin glargine 100 unit/mL (3 15 unit subcut QPM maciej betes 08/05/21 05/04/25 History mL) subcutaneous pen (Lantus Solostar U-100 Insulin) insulin lispro 100 unit/mL 0 unit subcut TID SLIDING S JENNIFER 08/05/21 05/05/25 H istory subcutaneous pen tamsulosin 0.4 mg capsule (Flomax) 0.4 mg PO DAILY [facility] [place] 08/05/21 05/04/25 History ezetimibe 10 mg tablet 10 mg PO DAILY cholesterol 0 04/06/24 05/05/25 History blood sugar diagnostic (Contour 09/12/24 Unknown Hist ory Next Test Strips) hydralazine 50 mg tablet 50 mg PO Q8H BP 04/03/2503/25 History albuterol sulfate 2.5 mg/3 mL 2.5 mg (3 mL) inhalation Q2H PRN 04/22/25 05/05/25 Rx (0.083 %) solution for nebulization PRN SOB &/OR WHEEZ ING 30 days #180 mL albuterol sulfate 90 mcg/actuation 2 inh inhalation Q6 H PRN shortness 04/22/25 05/05/25 Rx breath activated powder inhaler of breath or wheezing #1 ea (ProAir RespiClick) carvedilol 25 mg tablet 25 mg PO BIDCM blood pressur e #60 04/22/25 05/05/25 Rx tabs furosemide 40 mg tablet 40 mg PO BIDLX water pill #6 0 tabs 04/22/25 05/05/25 Rx isosorbide mononitrate 30 mg 30 mg PO DAILY BP #30 tab s 04/22/25 05/05/25 Rx tablet,extended release 24 hr nebulizer and compressor #1 ea 04/22/25 Unknown Rx finasteride 5 mg tablet 5 mg PO DAILY prostate 05/0505/05/25 History prednisone 20 mg tablet 40 mg (2 x 20 mg) PO DAILY # 10 tabs 05/09/25 Unknown Rx albuterol sulfate 90 mcg/actuation 2 puff inhalation Q 6H PRN PRN 05/13/25 Unknown History aerosol inhaler wheezing Allergy/AdvReac Type Severity Reaction Status Date / Time spironolactone AdvReac Intermediate Hyperkalemi Verified 04/19/25 03:10 a Corticosteroids AdvReac Other Verified 04/03/25 00:16 (Glucocorticoids) (steroids) Oclhhlb-XHB-UyF Reductase AdvReac Other Verified 04/03/25 00:16 Inhibitor (Lyenfgw-Chy-Ank Reductase Inhibitor) Family History Mother COPD (chronic obstructive pulmonary disease) Father CAD (coronary artery disease) Heart disease Family History no significant family his Surgical History Hx of cystoscopy Hx of colonoscopy Hx of left cataract extraction Hx of right cataract extraction Social History household members: spouse Smoking Status: Current every day smoker tobacco type: cigarettes alcohol intake: never substance use type: does not use EXAM Physical Exam Const Vital Signs: 05/13/25 13:30 05/13/25 13:36 05/13/25 13:40 Temperature 97.2 F L 97.2 F L Temperature Source Axillary Oral Pulse Rate 75 107 H 101 H Respiratory Rate 21 H 22 H 20 H Respiratory Effort Respiratory Depth Respiratory Pattern Tachypnea Blood Pressure 161/102 H 161/102 H Blood Pressure Mean 121 121 Pulse Ox 75 92 92 Oxygen Delivery Method CPAP Bi-pap Oxygen Flow Rate (L/min) 10 Fraction of Inspired Oxygen (FIO2) 50 05/13/25 13:53 05/13/25 14:05 05/13/25 14:14 Temperature Temperature Source Pulse Rate 86 87 Respiratory Rate 19 H 19 H Respiratory Effort Short of Breath Labored Accessory Muscle Use Respiratory Depth Deep Respiratory Pattern Tachypnea Blood Pressure 165/107 H Blood Pressure Mean 126 Pulse Ox 91 92 Oxygen Delivery Method Bi-pap Oxygen Flow Rate (L/min) Fraction of Inspired Oxygen (FIO2) 05/13/25 14:15 05/13/25 14:30 05/13/25 14:45 Temperature Temperature Source Pulse Rate 100 92 96 Respiratory Rate 18 19 H 18 Respiratory Effort Respiratory Depth Respiratory Pattern Blood Pressure 165/107 H 165/88 H 192/84 H Blood Pressure Mean 125 110 114 Pulse Ox 92 92 91 Oxygen Delivery Method Bi-pap Oxygen Flow Rate (L/min) Fraction of Inspired Oxygen (FIO2) 05/13/25 15:00 05/13/25 15:15 05/13/25 15:30 Temperature Temperature Source Pulse Rate 93 99 98 Respiratory Rate 17 23 H 24 H Respiratory Effort Respiratory Depth Respiratory Pattern Blood Pressure 173/90 H 186/85 H 197/100 H Blood Pressure Mean 114 113 124 Pulse Ox 92 92 91 Oxygen Delivery Method Bi-pap Bi-pap Oxygen Flow Rate (L/min) Fraction of Inspired Oxygen (FIO2) 05/13/25 15:45 Temperature Temperature Source Pulse Rate Respiratory Rate Respiratory Effort Respiratory Depth Respiratory Pattern Blood Pressure 185/108 H Blood Pressure Mean 130 Pulse Ox 92 Oxygen Delivery Method Oxygen Flow Rate (L/min) Fraction of Inspired Oxygen (FIO2) [facility] [place] MDM MDM Narrative Medical decision making narrative: HISTORY OF PRESENT ILLNESS: Chief complaint: Shortness of breath 79-year-old male history of of COPD, CHF, CKD, type 2 diabetes, hypertension not on blood thinners presents with severe shortness of breath. No started 1 hour ago. Denies chest pain. Denies sick contacts. Denies fever or chills. Denies PE risk factors (the patient denies recent surgery in the last 4 weeks or immobilization in the last 3 days, denies previous diagnosis of DVT or PE, hemoptysis, unilateral leg swelling or malignancy with treatment the last 6 rc hs or palliative. No estrogen use noted. REVIEW OF SYSTEMS: Pertinent positives: Shortness of breath Pertinent negatives: No chest pain PHYSICAL EXAM: Nursing triage notes reviewed, Vital signs reviewed Constitutional: please see mdm HENT: MMM Eyes: Pupils equal round and reactive to light, Extraocular muscles intact Neck: Positive JVD Lungs: Severe respiratory distress, increased work of breathing, conversational dyspnea, accessory muscle use, rales noted in bilateral bases Heart: Regular rate and rhythm, No murmurs, No rubs and No gallops, 2+ distal pulses (radial, femoral, posterior tibial) in all extremities Abdomen: Soft, there is no tenderness, rigidity, rebound or guarding, no obvious peritoneal signs, no palpable pulsatile abdominal masses, no auscultated abdominal bruit : No CVAT Extremities: 1-2+ pitting edema bilateral lower extremity Neuro: No new focal neurological deficits, cranial nerves II through XII intact, 5/5 strength in all present extremities. Intact sensation to light touch in all present extremities, 2+ reflexes bilateral patella tendons. Skin: No rash or lesions noted MEDICAL DECISION MAKING: Chief Complaint: please see HPI External records reviewed: Reviewed echocardiogram from 2024 which shows an ejection fraction of of 40% with stage I diastolic dysfunction Factors affecting care: As per HPI Social determinants of health: Former smoker History obtained from others: EMS Consults: Cardiology (Dr. Haq), Internal medicine (Dr. Hwang) MDM Narrative: The patient was initially hypoxic with an initial pulse ox of 75% on CPAP. H ypertensive with a blood pressure 161/102, he is tachypneic with respirate of 21 he was afebrile. Exam with increased work of breathing, respiratory distress diaphoresis. Rales noted in bilateral lung field I considered the following differential diagnosis: Flash pulmonary edema, CHF exacerbation, pneumonia, COPD exacerbation, ACS, arrhythmia, anemia, electrolyte disturbance Initial prehospital EKG was concerning for ST elevations in V1 and V2 and depressions inferolaterally. Initial EKG here showed nonspecific ST and T wave changes that are similar to prior. Given EKG changes and hypoxia I consulted cardiology immediately spoke with Dr. Haq who reviewed the patient's EKG history and initial medical issues and noted this was not a STEMI. As such would not activate [employer] initially. I obtained a broad lab and imaging workup and start the patient emergently on BiPAP to further determine if the patient was suffering from a life-threatening etiology. Initially treated with p.o. nitroglycerin and oral aspirin ALL IMAGES (IF OBTAINED) HAVE BEEN PERSONALLY REVIEWED AND INTERPRETED BY MYSELF. EKG with sinus tachycardia rate 106, normal axis, prolonged QTc at 478, no obvious STEMI however there is some evidence of subendocardial ischemia with inferior lateral depressions consistent with hypoxia CBC with no leukocytosis to suggest some inflammation, noted baseline anemia, no thrombocytopenia VBG without evidence of metabolic acidosis, bicarb is 22 not consistent with DKA despite severe hyperglycemia BMP with pseudohyponatremia, noted metabolic acidosis with lactic acidosis secondary to hypoxia low bicarb, noted endorgan hypoperfusion with elevated anion gap likely secondary to. Noted CKD with a GFR of 24. LFTs show no evidence of hepatobiliary pathology. Initial lactate elevated consistent with endorgan hypoperfusion likely secondary to hypoxia Initial troponin elevated consistent with myocardial ischemia likely demand ischemia from hypoxia and CKD D-dimer elevated consistent with increased clot breakdown given low GFR and need for diuresis given most likely diagnosis of CHF we will forego CT at this time as to not cause renal failure in addition to the patient's other abnormalities Chest x-ray was read reviewed personally still showed evidence of sujit volume overload and CHF. No sign of infiltrate per radiologist noted possible could be an infiltrate On reevaluation patient had appropriate tissue perfusion and volume status. He was still resting comfortably on BiPAP. Will continue BiPAP. Of note I did not start antibiotics in the ED despite the patient's initial SIRS criteria and possible source of pneumonia given no fever, no white blood cell count and low suspicion for infection. I did start heparin given concern for NSTEMI and possible VTE after discussion with internal medicine physician. I did not obtain a CTA of the chest given GFR concern for worsening renal function I did not start insulin drip as the patient is on DKA based on VBG while awaiting beta-hydroxybutyrate Will admit to the ICU. Prior to transfer to ICU patient had worsening respiratory status. Increased work of breathing, diaphoresis, coughing pink frothy sputum, hypertensive and hypoxic despite BiPAP. At this point risk and benefits were discussed with patient and family who agreed to be intubated. He was intubated on first pass. Postintubation x-ray was read and reviewed personally by myself showed evidence of appropriate positioning of ET tube. Please see below procedure note. Patient appropriate ICU admission. Hospitalist to update her on the patient's plan of care and condition. Intubation The procedure was performed by myself. Indications: Hypoxia, increased work of breathing Procedure Description: Patient was preoxygenated BiPAP, used video laryngoscopy the 8.0 ET tube, 4.0 hyper angulated Mac blade with a grade 1 view through the cords. First pass success Post-Procedure Assessment: Tracheal intubation was confirmed with breath sounds auscultated equally bilaterally; appropriate color change with end tidal CO2 detector and waveform capnography. The patient tolerated the procedure well with no immediate complications. The patient and/or family, caregivers express understanding. The patient and/or family, caregivers agrees with the plan. Shared decision making: I will have a discussion with the patient and or visitors regarding risk/benefits of further testing or admission. They will be made aware of of the risk/benefits inherent in this decision they will be given the opportunity to voice understanding. Total critical care time today provided was at least 60 minutes. This excludes separately billable procedures. Critical care time (if documented) is secondary to the patient having high probability of clinically significant/life threatening deterioration in the patient's condition which required my urgent intervention. Impression: 1. Acute hypoxic respiratory failure 2. CHF exacerbation 3. CKD 4. NSTEMI 5. Hyperglycemia 6. Elevated D-dimer Dispo: Discharge home This note was generated with [employer] dictation software. It may contain incorrect words, spelling, and punctuation that were not noted in review of the chart prior to signing. Lab Data Labs: Laboratory Results - last 24 hr 05/13/25 13:47 WBC 9.2 RBC 3.06 L Hgb 8.8 L Hct 28.1 L MCV 91.8 MCH 28.8 MCHC 31.3 L RDW Std Deviation 49.3 H RDW Coeff of Humaira 14.8 H Plt Count 268 MPV 11.9 PT 14.1 INR 1.1 APTT 26.2 D-Dimer Quant (PE/DVT) 2.18 H* Sodium 129 L Potassium 4.7 Chloride 93 L Carbon Dioxide 17.4 L Anion Gap 19 H BUN 83 H Creatinine 2.64 H Estim Creat Clear Calc 19.01 L Est GFR (MDRD) Non-Af 24 L BUN/Creatinine Ratio 31.3 H Glucose 824 H* Serum Osmolality 351 H Lactic Acid 3.3 H* Calcium 8.6 Total Bilirubin 0.35 AST 29 ALT 38 Alkaline Phosphatase 79 Troponin T High Sens 122 [place]* [place] [address] H Total Protein 6.0 Albumin 3.6 Globulin 2.4 Albumin/Globulin Ratio 1.5 Lipase 57 ABG Data ABG results: ABG 05/13/25 13:57 Specimen Type JUANITA Sample Site Not entered VBG pH 7.38 VBG pO2 68 H VBG HCO3 22 VBG Total CO2 23 VBG O2 Sat (Calc) 93 H VBG Base Excess -3 L POC Mix VBG pCO2 Pt Tmp 37.3 L O2 Delivery Device Not entered Radiography Diagnostic Testing: Clinical Impression(s) from Imaging Studies Chest X-Ray 05/13/25 13:54 IMPRESSION: Mildly worse extensive pulmonary edema. Underlying focal consolidations not excluded. Reading Location: [facility] Discharge Plan Triage Chief Complaint: Shortness of Breath ED Provider: John Brandon Dx/Rx/DC Orders Primary Care Provider: Ryley Montenegro
--- NOTE | 2025-05-13 13:54 | RAD_ITS ---
PROCEDURE: CHEST 1 VIEW (PORTABLE) 05/13/2025 REASON FOR EXAM: SHORTNESS OF BREATH TECHNIQUE: Frontal view of the chest. COMPARISON: 05/05/2025 FINDINGS: Hardware: None. Heart: Stable moderate cardiomegaly with pulmonary vascular congestion. Lungs: Mildly worse extensive pulmonary edema. No pleural effusion. No pneumothorax. Underlying focal consolidations not excluded. RAD/Chest 1 View (Portable) IMPRESSION: Mildly worse extensive pulmonary edema. Underlying focal consolidations not ex cluded. Reading Location: [id number]
[2025-05-13 14:01] LABS: SITE Not entered; VBG BASE EXCESS -3 mmol/L (-1.0-3.5); VBG PO2 68 mmHg (25-40); VBG SO2 93 % (50-70); VBG TCO2 23 mmol/L (23-33)
[2025-05-13 14:16] LABS: Hematocrit 28.1 % (40-54); Hemoglobin 8.8 g/dL (13.0-16.5); Mean Corp Hgb Conc 31.3 g/dL (32-36); Mean Corpuscular Volume 91.8 fL (80-94); Mean Platelet Vol. 11.9 fl (6.2-12.0); Platelet Count 268 K/mm3 (150-450); RBC Distribution Width CV 14.8 % (11.6-14.6); RBC Distribution Width SD 49.3 fl (35.1-43.9); Red Blood Count 3.06 M/mm3 (4.6-6.2); White Blood Count 9.2 K/mm3 (4.4-11.0)
--- OUTSIDE RECORDS SUMMARY | 2025-05-13 14:21 | XMS RPT_ITS | CCD ---
Author Organization [facility] Care Team Providers Care Furnace Cooler Name Role Phone Nancy Mirza Unavailable Unavailable Nancy Mirza Unavailable Unavailable Nancy Mirza Unavailable Unavailable Unavailable Primary Care Provider Nancy Calles Primary Care Provider Nancy Mirza Primary Care Provider Nancy Mirza Primary Care Provider Naresh Mirza MD, Nancy Key Primary Care Provider Nancy Mirza MD Primary Care Provider [phone] Nancy Mirza MD Primary Care Provider Nancy Mirza MD Primary Care Provider [phone] Nancy Mirza Unavailable Nancy Mirza MD Primary [...] Provider Ryley Jeter MD Primary Care Provider [phone] Dr. Ayanna Albert Attending Unavail able ORTEGA, ROLLED GOLD PLATER PATYMOE STEWART Referring Unava ilNANCY Wray Primary Care Unavailable Ayanna Albert DO Unavailable [...] Primary Care Unavailable Kristy Parker MD Unavailable [phone] Ryley Jeter MD Primary Care Provider [phone] Belkis URIBE, Dr. Suresh Attending Provider Generic Provider , No Assigned Pcp Primary Car e Provider Unavailable [facility] Consulting Unavai BERNADETTE Felix Attending Unavailable RYLEY JETER Primary Care Unavailable SALEMJESS Admitting Unavailable DURAIRACINTIA Isbell Admitting Unavailable [facility] Consulting Un available RYLEY JETER Primary Care Unavailable NIDIA GARAY Attending Unavailable Dr. John Brandon DO Emergency Provider Jaiden URIBE, Dr. Dyana Paredes Admit Provider [phone] Jaiden URIBE, Dr. Dyana Paredes Attending Provider [...] Rylan VERDUZCO, Dr. Alatorre Other Provider Chuy URBIE, Dr. Nancy Delgado Other Provider Susan URIBE, Dr. Stewart Other Provider Elvie URIBE, Dr. Butcher Other Provider Jesus URIBE, Dr. Wood Other Provider Keenan URIBE, Dr. Song Other Provider [phone] Mervin URIBE, Dr. Gutiérrez Other Provider [phone] Deep URIBE, Dr. Arredondo Other Provider [phone] Saritha URIBE, Dr. Ya Other Provider Radha URIBE, Dr. Guerra Other [facility] ariela Woods MD, Dr. Mar Other Provider Demetri URIBE, Dr. Altamirano Other Provider Cordelia URIBE, Dr. Walsh Other Provider Lucinda URIBE, Dr. Barton Other Provider Dr. Dillon Moses DO Other Provider [phone] Tiffanie URIBE, Dr. Ballesteros Other Provider [phone] Jay Gallardo MD, Dr. Corona Other Provider [phone] Asim VERDUZCO, Dr. Mantilla Other Provider Andrei URIBE, Dr. Sullivan Other Provider Callum URIBE, Dr. Kent Other Provider [phone] Sai URIBE, Dr. Rain Attending Provider Adrian URIBE, Dr. Tijerina Attending Provider Veronica URIBE, Dr. Valentin Attending Provider Janelle URIBE, Dr. Smooth Ahn Attending Provider Teresa URIBE, Dr. Jose Perez Attending Provider WOO SMALL Referring [facility] Steffany URIBE, [facility] Primary Care Provider Belkis URIBE, Dr. [...] Provider Deep URIBE, Dr. Arredondo Other Provider Saritha URIBE, Dr. Ya Other Provider Radha URIBE, Dr. Guerra Other Provider Unavailabl ariela Woods MD, Dr. Mar Other Provider [phone] Demetri URIBE, Dr. Altamirano Other Provider Cordelia URIBE, Dr. Walsh Other Provider [phone] Lucinda URIBE, Dr. Barton Other Provider Josué VERDUZCO, Dr. Carranza Other Provider [phone] Tiffanie URIBE, Dr. Balelsteros Other Provider [phone] Sami URIBE, Dr. Corona Other Provider [phone] Jose Rafael Dailey DO Other Provider Andrei URIBE, Dr. Sullivan Other Provider Callum URIBE, Dr. Kent Other Provider Sai URIBE, Dr. Rain Attending Provider Adrian URIBE, Dr. Tijerina Attending Provider Veronica URIBE, Dr. Valentin Attending Provider Janelle URIBE, Dr. Smooth Ahn Attending Provider Teresa URIBE, Dr. Jose Perez Attending Provider Dr. Arnulfo Jose DO Emergency Provider Rizzo DO, Dr. Spencer Admit Provider Unavail able Rizzo DO, Dr. Spencer Attending Provider Geena Arnold MD, Dr. Grace Wlison Referring Provider Rizzo DO, Dr. Spencer Other Provider Unavail able Marian VERDUZCO, Dr. Hui Attending Provider Marian VERDUZCO, Dr. Hui Other Provider Alejandra VERDUZCO, Dr. Ann Attending Provider [phone] STEFFANY, CHALON TUCKER Primary Care Unavailable DAY, WOO LARSEN Attending Unavailable STEFFANY, CHALON TUCKER Primary Care Unavailable DAY, WOO LARSEN Attending Unavailable PATY ORTEGA Attending Unavailab le STEFFANY, CHALON TUCKER Primary Care Unavailable SANDI PHAN Admitting Unavailab SANDI Rios Referring Unavailab le STEFFANY, CHALON TUCKER Primary [...] PROVIDER, NO ASSIGNED PCP Primary Care Unavailable Dr. Curtis Amor DO Emergency Provider Dr. Nancy Rizzo DO Attending Provider Unav ailable Steffany, Chalon Primary Care Unavailable Kerwin Tamayo Attending Unavaildorothy e Steffany, Chalon Primary Care Unavailable Kayden Colon Referring Unavailable Kayden Colon Attending Unavailable Steffany, Chalon Primary Care Unavailable SteffanyRyley coulter Attending Unavailable Steffany, Chalon Primary Care Unavailable Young Koroma Admitting Unavailable Yonug Koroma Consulting Unavailable Nancy Bhatt Attending Unavailable Steffany, Chalon Primary Care Unavailable Breezy Campbell Attending Unavailable Nancy Rizzo Consulting Unavailable Nancy Rizzo Admitting Unavailable Denisha Thompson Consulting Unavailable Jose Moore Consulting Unavailable Breezy Campbell Consulting Unavailable Malika Fonseca Consulting Unavailable Steffany, Chalon Primary Care Unavailable Jose Moore Attending Unavailable Dyana Hwang Consulting Unavailable Dyana Hwang Admitting Unavailable Breezy Campbell Consulting Unavailable Tennille Limon Consulting Unavailable Harinder Gill Consulting Unavailable Moe Ortiz [...] Forbes Consulting Unavailable Donte Nolen Consulting Unavailable Denisha Thompson Consulting Unavailable Smooth Luis Consulting Unavailable Grace Arnold Consulting Unavailable Jose Moore Consulting Unavailable Landry Fagan Attending Unavailable Dyana Hwang Referring Unavailable Grace Arnold Attending Unavailable Steffany, Chalon Primary Care Unavailable Young Koroma Consulting Unavailable Young Koroma Admitting Unavailable Nancy Bhatt Attending Unavailable Nancy Bhatt Consulting Unavailable Barbie Martin Attending UnavailSmooth Holliday Attending Unavailable Nancy Rizzo Admitting Unavailable Malika Fonseca Attending Unavailable Steffany, Chalon Primary Care Unavailable Nancy Rizzo Consulting Unavailable Carlita Raygoza Consulting Unavailable Malika Fonseca Consulting Unavailable Ger Roberts Attending Unavailable Steffany, Chalon Primary Care Unavailable KoromaYoung Consulting Unavailable Koroma, Young Attending Unavailable Koroma, Young Admitting Unavailable Marian, Malika Attending Unavailable Marian, Malika Attending Unavailable Steffany, Chalon Primary Care Unavailable Nancy Rizzo Admitting Unavailable Nancy Rizzo Consulting Unavailable Carlita Raygoza Consulting Unavailable Steffany, Chalon Primary Care Unavailable Koram, Grace Katie Attending Unavailable Dyana Hwang Admitting Unavailable Dyana Hwang Consulting Unavailable Breezy Campbell Consulting Unavailable Jay, Denisha Consulting Unavailable Smooth Luis Consulting Unavailable Koram, Grace Katie Consulting Unavailable Jose Moore Consulting Unavailable Nancy Rizzo Attending Unavailable Steffany, Chalon Primary Care Unavailable Bernardo Davis Attending Unavailable Steffany, Chalon Referring Unavailable Steffany, Chalon Primary Care Unavailable Karoline Denise Attending Unavailable Steffany, Chalon Primary Care Unavailable Nancy Bhatt Referring Unavailable Malika Alaniz Attending Unavailable Steffany, Chalon Primary Care Unavailable Koffi Gibbs Attending Unavailable Nancy Rizzo Attending Unavailable Carlita Raygoza Attending Unavailable Koram, Grace Katie Referring Unavailable Dyana Hwang Attending Unavailable Breezy Campbell Attending Unavailable Steffany, Chalon Primary Care Unavailable Marian, Malika Attending Unavailable Nancy Rizzo Consulting Unavailable Nancy Rizzo Admitting Unavailable Jay, Denisha Consulting Unavailable Jose Moore Consulting Unavailable Breezy Campbell Consulting Unavailable Dr. Carlita Raygoza DO Other Provider [phone] Carlita Raygoza DO Attending Provider Allergies Allergy Classification Reported Allergen(s) Allergy Type Date of Onset Reaction(s) Facility Corticosteroids (1 source) predniSONE Drug Allergy 08-24-20 23 Other (See Comments) [facility] HMG-CoA Reductase Inhibitors (statins) (3 sources) Hmg-Coa Reductase Inhibitors (Statins) Drug Allergy 01-08-20 16 [facility] (20 sources) Hmg-Coa Reductase Inhibitors (Statins); Translations: [ECHOYXT-BOX-KKZ REDUCTASE INHIBITORS] Propensity to adverse reactions to drug 01-08-20 16 Other [facility] Work Phone: (6 sources) HMG-CoA reductase inhibitor Propensity to adverse reactions to drug 01-08-20 16 [facility] (20 sources) HMG-CoA reductase inhibitor Propensity to adverse reactions to drug 01-08-20 16 Unknown [facility] (18 sources) predniSONE; Translations: [predniSONE TABS] Drug Allergy 08-24-20 23 Other, Other (See Comments) [facility] (4 sources) predniSONE; Translations: [PREDNISONE] Drug Allergy 08-24-20 [facility] Repository (7 sources) Glucocorticoid Receptor Agonists Propensity to adverse reactions 04-06-20 24 Other [facility] Comment on above: Blood sugar increase (4 sources) Spironolactone Drug Allergy 04-19-20 25 [facility] (1 source) Corticosteroids Drug allergy (disorder) 04-03-20 25 [facility] Repository (1 source) Spironolactone Drug Allergy 04-19-20 25 [facility] Repository (1 source) Drbplzy-Obl-Nnc Reductase Inhibitor Drug allergy (disorder) 04-03-20 25 [facility] Repository Medications Current Medications Medication Drug Class(es) Dates Sig (Normalized) Sig (Original) albuterol 0.83 mg/ml inhalation solution (7 sources) beta2-Adrenergic Agonist Start: 04-22-2025 Start: 04-22-2025 [...] 11/27/23 at 0900 Start: 10-22-2010 End: 05-01-2025 amoxicillin 875 mg / clavulanate 125 mg [...] 0.5 mg carvedilol 25 mg oral tablet (3 sources) alpha-Adrenergic Deepali, beta-Adrenergic Deepali Start: 04-22-2025 cefdinir [...] (Vitamin D-3) tablet 5,000 Units compress.stocking,knee,reg,m ed misc (1 source) Start: 05-01-2025 compress.stocking,knee,reg,m ed misc Indications: Stage 3b chronic kidney disease (Multi) [...] tablet 10/13/2023 6:34 PM EST 10/13/2023 Active finasteride 5 mg oral tablet (2 sources) 5-alpha Reductase Inhibitor Start: 05-05-2025 furosemide 40 mg oral tablet (20 sources) [...] injection (1 source) Antihypoglycemic Agent Start: 10-11-2023 glucago n (Glucagen) injection 1 mg hydrALAZINE hydrochloride 50 mg oral tablet (20 sources) Arteriolar Vasodilator Start: 09-14-2024 End: 04-03-2025 Start: 09-14-2024 End: 04-11-2026 hydroCHLOROthiazide 12.5 mg [...] 04, 2021 11:00pm Start: 10-13-2019 End: 11-06-2024 Start: 11-11-2018 inject 20 [IU] by leal [...] oral tablet (20 sources) Nitrate Vasodilator Start: 04-22-2025 Start: 10-06-2024 End: 10-28-2024 LORazepam 0.5 mg [...] Follow administration with 8 ounces of water. nitroglycerin 0.4 mg sublingual tablet (15 sources) [...] 11/27/23 at 0337 Anginal pain, may repeat [id number] x3, then notify physician. DO NOT CRUSH [...] 0 10/13/2023 Active Pen Needle, Diabetic 32 Gaug e X 1/4 (1 source) Start: 06-17-2017 pen needle, di abetic 32 gauge x 1/4 Ndle use as directed 4 times per day for insulin injection. 400 each 3 06/17/2017 Active pen needle, diabetic 32 gaug e x 1/4 Ndle (4 sources) Start: 06-17-2017 pen needle, di abetic 32 gauge x 1/4 Ndle use as directed 4 times per day for insulin injection. 400 each 3 06/17/2017 Active perflutren protein A microsp here (Optison) injection 0.5 mL (1 source) Start: 10-11-2023 perflutren pro tein A microsphere (Optison) injection 0.5 mL predniSONE 20 mg oral tablet (18 sources) Start: 05-09-2025 Start: 04-22-2025 End: 05-05-2025 Start: 10-24-2024 predniSONE (DE LTASONE) 20 MG [...] sources) Start: 12-01-2023 Start: 12-31-2022 End: 12-01-2023 (11 sources) Start: 04-22-2025 Start: 09-12-2024 Start: 11-27-2023 [...] (porcine) injection 4,000 Units Start: 11-26-2023 take 8244-8806 [IU] intravenously every four hours as needed [...] g, Intravenous, at 50 mL/hr, Once, On 11/27/23 at 2230, For 1 dose 2gm IVPB over 60 minutes x 1 for serum Magnesium in range of 1.4-1.9 mg/dL per Critical/ Intermediate Care Electrolyte Replacement Therapy. melatonin 5 mg oral tablet (1 source) Start: 10-27-2024 End: 10-28-2024 take 5 mg by mouth once daily as needed for sleep 5 mg, Oral, Nightly PRN, Sleep, Starting on Wed10/27/24 at 1700 24 hr metoprolol succinate 25 mg extended release oral tablet (20 sources) beta-Adrenergic Deepali Start: 10-11-2023 End: 05-01-2025 24 hr nicotine 0.875 mg/hr transdermal system [...] nausea, vomiting, Starting on Wed10/27/24 at 1700 pantoprazole 40 mg delayed release oral tablet (5 sources) Proton Pump Inhibitor Start: 04-10-2025 End: 05-05-2025 perflutren lipid microspheres (Definity) injection 0.5-10 mL [...] tablet (20 sources) Start: 09-14-2024 End: 05-01-2025 Start: 09-14-2024 End: 04-10-2025 Start: 11-27-2023 End: 11-27-2023 20 mEq, Oral, Once, On 11/27/23 at 2230, For 1 dose 20mEq orally x 1 for serum Potassium in range of 3.5-4 mEq/L per Critical Care Electrolyte Replacement Therapy. DO NOT CRUSH OR CHEW (if instructed may dissolve tablet(s) in liquid) DO NOT ADMINISTER DISSOLVED TABLET VIA SURGICALLY PLACED TUBE OR TUBE less than 14 Lebanese. To administer dissolved tablet(s) mix with 4 [...] 10 g spironolactone 25 mg oral tablet (10 sources) Aldosterone Antagonist Start: 03-09-2025 End: 03-09-2026 vancomycin in dextrose 5 % (Vancocin) IVPB 1,000 mg (1 source) Start: 11-26-2023 End: 11-26-2023 vancomycin in dextrose 5 % (Vancocin) IVPB 1,000 mg Problems Active Problems Problem Classification Problem Date Documented Da te Episodic/Chronic Acute and unspecified renal failure (20 sources) Acute injury of kidney; Translations: [Acute kidney failure, unspecified] Onset: 02-28-2025 11-26-2023 Episodic Acute myocardial infarction (20 sources) Myocardial infarction; Translations: [Non-ST elevation (NSTEMI) myocardial infarction] Onset: 11-27-2023 11-26-2023 Chronic Cardiac dysrhythmias (11 sources) Bradycardia; Translations: [Bradycardia, unspecified] Onset: 04-23-2025 04-05-2025 Episodic Chronic kidney disease (20 sources) Chronic kidney disease; Translations: [Chronic kidney disease, unspecified] Onset: 07-30-2023 Chronic Chronic kidney disease (8 sources) Chronic kidney disease; Translations: [Chronic kidney disease, stage 3b (Multi)] Onset: 08-25-2023 Chronic obstructive pulmonary disease and bronchiectasis (19 sources) Pulmonary emphysema; Translations: [Emphysema, unspecified] Onset: 10-27-2024 10-27-2024 Chronic Congestive heart failure; nonhypertensive (20 sources) Acute congestive heart failure; Translations: [Heart failure, unspecified] Onset: 10-18-2024 10-11-2023 Chronic Coronary atherosclerosis and other heart disease (17 sources) Coronary arteriosclerosis; Translations: [Atherosclerotic heart disease of [place] coronary artery without angina pectoris] Onset: 10-17-2024 11-07-2024 Chronic Deficiency and other anemia (10 sources) Anemia; Translations: [Anemia, unspecified] 04-04-2025 Episodic Deficiency and other anemia (4 sources) Chronic anemia; Translations: [Anemia, unspecified] 04-19-2025 [...] 01-09-2016 Chronic Diseases of white blood cells (12 sources) Leukocytosis; Translations: [Elevated white blood cell count, unspecified] Onset: 05-09-2025 04-19-2025 Chronic Disorders of lipid metabolism (20 sources) Pure hypercholesterolemia ; Translations: [Pure hypercholesterolemia , unspecified] Onset: 03-01-2011 01-09-2016 Chronic Essential hypertension (20 sources) Essential hypertension; Translations: [Essential (primary) hypertension] Onset: 03-01-2011 01-09-2016 Chronic Fluid and electrolyte disorders (17 sources) Hyperkalemia; Translations: [Hyperkalemia] Onset: 02-28-2025 Episodic Heart valve disorders (4 sources) Nonrheumatic mitral (valve) insufficiency; Translations: [Mitral valve regurgitation] Onset: 05-09-2025 05-06-2025 Chronic Hyperplasia of prostate (1 source) Benign prostatic hyperplasia without lower urinary tract symptoms; Translations: [Benign prostatic hyperplasia without lower urinry tract symp] Onset: 07-30-2023 Chronic Hypertension with complications and secondary hypertension (13 sources) Hypertensive emergency; Translations: [Hypertensive emergency] Onset: 09-14-2024 10-18-2024 Chronic Malaise and fatigue (20 sources) Fatigue; Translations: [Other fatigue] Onset: 10-18-2024 10-18-2024 Episodic Occlusion or stenosis of precerebral arteries (20 sources) Bilateral carotid artery stenosis; Translations: [Occlusion and stenosis of bilateral carotid arteries] Onset: 02-18-2021 Chronic Osteoarthritis (12 sources) Arthritis; Translations: [Arthropathy, unspecified, site unspecified] Onset: 08-24-2023 08-24-2023 Chronic Other acquired deformities (7 sources) Scoliosis of lumbar spine; Translations: [Scoliosis, unspecified] 04-07-2024 Chronic Other acquired deformities (7 sources) Lumbar spondylolisthesis; Translations: [Spondylolisthesis, lumbar region] 04-07-2024 Episodic Other aftercare (1 source) Post-discharge follow-up; Translations: [Encounter for follow-up examination after completed treatment for conditions other than malignant neoplasm] 03-09-2025 Episodic Other aftercare (2 sources) 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; Translations: [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] Onset: 05-09-2025 Episodic Other and ill-defined heart disease (5 sources) Systolic dysfunction; Translations: [Other ill-defined heart diseases] 10-21-2023 Chronic Other and ill-defined heart disease (10 sources) Left ventricular cardiac dysfunction; Translations: [Heart disease, unspecified] 04-03-2025 Chronic Other and ill-defined heart disease (2 sources) Other ill-defined heart diseases; Translations: [Other ill-defined heart diseases] Onset: 10-18-2024 Chronic Other and ill-defined heart disease (1 source) Heart disease, unspecified; Translations: [Heart disease, unspecified] Onset: 04-23-2025 Chronic Other lower respiratory disease (7 sources) Acute cardiac pulmonary edema ; Translations: [Acute pulmonary edema] 09-22-2024 Episodic Other lower respiratory disease (3 sources) Shortness of breath; Translations: [Shortness of breath] Onset: 10-18-2024 Episodic Other nervous system disorders (4 sources) Walking disability; Translations: [Difficulty in walking, not elsewhere classified] 04-19-2025 Chronic Other non-epithelial cancer of skin (10 sources) Squamous cell carcinoma of skin of [...] caused by tuberculosis or sexually transmitted disease) (8 sources) Infective pneumonia; Translations: [Pneumonia, unspecified organism] Onset: 02-28-2025 10-11-2023 Episodic Pulmonary heart disease (4 sources) Pulmonary hypertension, unspecified; Translations: [Mild pulmonary hypertension] Onset: 05-09-2025 05-06-2025 Chronic Residual codes; unclassified (2 sources) Edema; Translations: [Edema, unspecified] 05-01-2025 Episodic Respiratory failure; insufficiency; arrest (adult) (7 sources) Acute on chronic hypoxemic respiratory failure; Translations: [Acute and chronic respiratory failure with hypoxia] Onset: 05-09-2025 11-30-2023 Chronic Respiratory failure; insufficiency; arrest (adult) (20 sources) Acute respiratory failure; Translations: [Acute respiratory [...] Spondylosis; intervertebral disc disorders; other back problems (8 sources) Low back pain; Translations: [Low back pain] Onset: 05-25-2024 04-06-2024 Episodic Viral infection (12 sources) Disease caused by 2019-nCoV; Translations: [COVID-19] Onset: 10-11-2023 Resolved: 10-13-2023 10-11-2023 Episodic Results Test Name Value Interpretation Reference Range Facility Prothrombin Time w/INRon INR Normal [facility] Comment on above: Result Comment: Ray elled via OM: MD Ordered Performed By: #### L 300.3900 ####[facility] [id number] [place], [address] PROTIME Normal 11.7-14.9 [facility] Comment on above: Result Comment: Ray elled via OM: MD Ordered Performed By: #### L 300.3900 ####[facility] [id number] [place], [address] Prothrombin Time w/INRon INR Normal [facility] Comment on above: Result Comment: Ray elled via OM: MD Ordered Performed By: #### L 300.3900 ####[facility] [id number] [place], [address] PROTIME Normal 11.7-14.9 [facility] Comment on above: Result Comment: Ray elled via OM: MD Ordered Performed By: #### L 300.3900 ####[facility] [id number] [place], [address] Absolute lymphocyte countOrd ered By: Malika Fonseca on 05-09-2025 Lymphocytes Auto (Unsp spec) [#/Vol] 0.27 10*3/uL Low 0.83-4.51 [facility] Anion gap in Serum or Plasma Ordered By: Malika Fonseca on 05-09-2025 Anion gap [Moles/Vol] 15 mmol/L 5-15 [facility] Automated lymphocyte count a s percentage of total leukocytesOrdered By: Malika Fonseca on 05-09-2025 Lymphocytes/100 WBC Auto (Unsp spec) 4.3 % Low 19-41 [facility] BUN/creatinine ratioOrdered By: Malika Fonseca on 05-09-2025 Urea nitrogen/Creatinine [Mass ratio] 27.8 mg/mg High - [facility] Basic Metabolic Profile (BMP )on 05-09-2025 BUN/CRE 27.8 RATIO High - [facility] Comment on above: Performed By: #### L 500.2500, L100.0100 ####[facility] [id number] [place], [address] Calcium [Mass/Vol] 8.3 mg/dL Normal 7.6-11.0 [facility] Comment on above: Performed By: #### L 500.2500, L100.0100 ####[facility] [id number] [place], [address] Chloride [Moles/Vol] 103 mmol/L Normal 98-108 [facility] Comment on above: Performed By: #### L 500.2500, L100.0100 ####[facility] [id number] [place], [address] CO2 [Moles/Vol] 22.0 mmol/L Normal 21.0-32.0 [facility] Comment on above: Performed By: #### L 500.2500, L100.0100 ####[facility] [id number] [place], [address] Creatinine [Mass/Vol] 2.87 mg/dL High 0.70-1.20 [facility] Comment on above: Performed By: #### L 500.2500, L100.0100 ####[facility] [id number] [place], [address] ECRCL 18.87 ml/min Low 50-250 [facility] Comment on above: Performed By: #### L 500.2500, L100.0100 ####[facility] [id number] [place], [address] GAP 15 Normal 5-15 [facility] Comment on above: Performed By: #### L 500.2500, L100.0100 ####[facility] [id number] [place], [address] GFR/1.73 sq M.predicted among non-blacks MDRD (S/P/Bld) [Vol rate/Area] 21 mL/min/{1.73_m2} Low >60 [facility] Comment on above: Result Comment: mL/m in/1.73m2 CKD-EPI Creatinine Equation (2020) Performed By: #### L 500.2500, L100.0100 ####[facility] [id number] [place], [address] Glucose [Mass/Vol] 336 mg/dL High 70-99 [facility] Comment on above: Performed By: #### L 500.2500, L100.0100 ####[facility] [id number] [place], [address] Potassium [Moles/Vol] 4.1 mmol/L Normal 3.3-5.1 [facility] Comment on above: Performed By: #### L 500.2500, L100.0100 ####[facility] [address] [place], [address] Sodium [Moles/Vol] 140 mmol/L Normal 133-145 [facility] Comment on above: Performed By: #### L 500.2500, L100.0100 ####[facility] [address] [place], [address] Urea nitrogen [Mass/Vol] 80 mg/dL High 4-19 [facility] Comment on above: Performed By: #### L 500.2500, L100.0100 ####[facility] [address] [place], [address] Basophil percentageOrdered B y: Malika Fonseca on 05-09-2025 Basophils/100 WBC (Bld) 0.2 % 0-1 [facility] Bedside Glucoseon 05-09-2025 FINGERSTICK GLU 490 mg/dL Invalid Interpretation Code 74-106 [facility] Comment on above: Result Comment: ADITI GEMENT OF PATIENT CARE PER NURSING PROTOCOL Performed By: #### L 501.080 ####[facility] [address] [place], [address] FINGERSTICK GLU 414 mg/dL High 74-106 [facility] Comment on above: Result Comment: ADITI GEMENT OF PATIENT CARE PER NURSING PROTOCOL Performed By: #### L 501.080 ####[facility] [address] [place], [address] FINGERSTICK GLU 309 mg/dL High 74-106 [facility] Comment on above: Result Comment: ADITI GEMENT OF PATIENT CARE PER NURSING PROTOCOL Performed By: #### L 501.080 ####[facility] [address] [place], [address] CBC W/Diff, Automatedon 07-0 Absolute Lymph 0.27 X10 3/uL Low 0.83-4.51 [facility] Comment on above: Performed By: #### L 500.2500, L100.0100 ####[facility] [address] [place], [address] Absolute Neut 5.9 X10 3/uL Normal 2.0-7.7 [facility] Comment on above: Performed By: #### L 500.2500, L100.0100 ####[facility] [address] [place], [address] Basophils/100 WBC (Bld) 0.2 % Normal 0-1 [facility] Comment on above: Performed By: #### L 500.2500, L100.0100 ####[facility] [address] [place], [address] Eosinophils/100 WBC (Bld) 0.0 % Normal 0-5 [facility] Comment on above: Performed By: #### L 500.2500, L100.0100 ####[facility] [address] [place], [address] Erythrocyte distribution width (RBC) [Ratio] 14.3 % Normal 11.6-14.6 [facility] Comment on above: Performed By: #### L 500.2500, L100.0100 ####[facility] [address] [place], [address] Hematocrit (Bld) [Volume fraction] 23.8 % Low 40-54 [facility] Comment on above: Performed By: #### L 500.2500, L100.0100 ####[facility] [address] [place], [address] Hemoglobin (Bld) [Mass/Vol] 7.6 g/dL Low 13.0-16.5 [facility] Comment on above: Performed By: #### L 500.2500, L100.0100 ####[facility] [address] [place], [address] IG% 0.600 Normal 0.0-0.9 [facility] Comment on above: Result Comment: IG% - Immature Granulocytes (promyelocytes, myelocytes andmetamyelocytes) > 1% indicates that a LEFT SHIFT is Present. Performed By: #### L 500.2500, L100.0100 ####[facility] [address] [place], [address] Lymphocytes/100 WBC (Bld) 4.3 % Low 19-41 [facility] Comment on above: Performed By: #### L 500.2500, L100.0100 ####[facility] [address] [place], [address] MCH (RBC) [Entitic mass] 29.3 pg Normal 27.0-32.0 [facility] Comment on above: Performed By: #### L 500.2500, L100.0100 ####[facility] [address] [place], [address] MCHC (RBC) [Mass/Vol] 31.9 g/dL Low 32-36 [facility] Comment on above: Performed By: #### L 500.2500, L100.0100 ####[facility] [address] [place], [address] MCV (RBC) [Entitic vol] 91.9 fL Normal 80-94 [facility] Comment on above: Performed By: #### L 500.2500, L100.0100 ####[facility] [address] [place], [address] Monocytes/100 WBC (Bld) 1.6 % Normal 0-10 [facility] Comment on above: Performed By: #### L 500.2500, L100.0100 ####[facility] [address] [place], [address] Neutrophils/100 WBC (Bld) 93.3 % High 47-70 [facility] Comment on above: Performed By: #### L 500.2500, L100.0100 ####[facility] [address] [place], [address] Nucleated RBC (Bld) [#/Vol] 0 10*3/uL Normal 0-5 [facility] Comment on above: Performed By: #### L 500.2500, L100.0100 ####[facility] [address] [place], [address] Platelet mean volume (Bld) [Entitic vol] 11.5 fL Normal 6.2-12.0 [facility] Comment on above: Performed By: #### L 500.2500, L100.0100 ####[facility] [address] [place], [address] Platelets (Bld) [#/Vol] 153 10*3/uL Normal 150-450 [facility] Comment on above: Performed By: #### L 500.2500, L100.0100 ####[facility] [address] [place], [address] RBC (Bld) [#/Vol] 2.59 10*6/uL Low 4.6-6.2 [facility] Comment on above: Performed By: #### L 500.2500, L100.0100 ####[facility] [address] [place], [address] RDW SD 47.9 fl High 35.1-43.9 [facility] Comment on above: Performed By: #### L 500.2500, L100.0100 ####[facility] [address] [place], [address] WBC (Bld) [#/Vol] 6.3 10*3/uL Normal 4.4-11.0 [facility] Comment on above: Performed By: #### L 500.2500, L100.0100 ####[facility] [address] [place], [address] Carbon dioxide, total [Moles /volume] in Central venous bloodOrdered By: Malika Fonseca on 05-09-2025 CO2 [Moles/Vol] 22.0 mmol/L 21.0-32.0 [facility] Chloride assayOrdered By: Rogerio Fonseca on 05-09-2025 Chloride [Moles/Vol] 103 mmol/L 98-108 [facility] Eosinophil percentageOrdered By: Malika Fonseca on 05-09-2025 Eosinophils/100 WBC (Bld) 0.0 % 0-5 [facility] Erythrocyte distribution wid th ratioOrdered By: Malika Fonseca on 05-09-2025 Erythrocyte distribution width (RBC) [Ratio] 14.3 % 11.6-14.6 [facility] Erythrocyte distribution wid th standard deviationOrdered By: Malika Fonseca on 05-09-2025 Erythrocyte distribution width (RBC) [Ratio] 47.9 fl High 35.1-43.9 [facility] Folates, RBCon 05-09-2025 Fol.,Hemolysate 444.0 ng/mL Normal Not Estab. [facility] Comment on above: Performed By: #### L 3100.1725 ####[facility] [address] [place], [place], [id number] Folate, RBC 1552 ng/mL Normal >498 [facility] Comment on above: Result Comment: Perf ormed at: - [facility] [address] [id number] Director: Todd Anderson PhD, Phone: [phone] Performed By: #### L 3100.1725 ####[facility] [address] [place], [address] Hematocrit (Bld) [Volume fraction] 28.6 % Low 37.5-51.0 [facility] Comment on above: Performed By: #### L 3100.1725 ####[facility] [address] [place], [address] Glomerular filtration rate ( GFR) estimation/1.73 sq m using serum, plasma, or whole bOrdered By: Malika Fonseca on 05-09-2025 GFR/1.73 sq M.predicted among non-blacks MDRD (S/P/Bld) [Vol rate/Area] 21 mL/min/{1.73_m2} Low >60 [facility]dered By: Malika Fonseca on 05-09-2025 Glucose [Mass/Vol] 490 mg/dL High 74-106 [facility] Hematocrit Auto (Bld) [Volum e fraction]Ordered By: Malika Fonseca on 05-09-2025 Hematocrit (Bld) [Volume fraction] 23.8 % Low 40-54 [facility] Hemoglobin measurementOrdere d By: Malika Fonseca on 05-09-2025 Hemoglobin (Bld) [Mass/Vol] 7.6 g/dL Low 13.0-16.5 [facility] Immature granulocytes/100 WB C Auto (Bld)Ordered By: Malika Fonseca on 05-09-2025 Immature granulocytes/100 WBC (Bld) 0.600 % 0.0-0.9 [facility] MCV (mean corpuscular volume ) determinationOrdered By: Malika Fonseca on 05-09-2025 MCV (RBC) [Entitic vol] 91.9 fL 80-94 [facility] Mean corpuscular hemoglobin (MCH) determinationOrdered By: Malika Fonseca on 05-09-2025 MCH (RBC) [Entitic mass] 29.3 pg 27.0-32.0 [facility] Monocyte percentageOrdered B y: Malika Fonseca on 05-09-2025 Monocytes/100 WBC (Bld) 1.6 % 0-10 [facility] Neutrophil percentageOrdered By: Malika Fonseca on 05-09-2025 Neutrophils/100 WBC (Bld) 93.3 % High 47-70 [facility] Platelet countOrdered By: Rogerio Fonseca on 05-09-2025 Platelets (Bld) [#/Vol] 153 10*3/uL 150-450 [facility] Potassium measurement (mass/ volume)Ordered By: Malika Fonseca on 05-09-2025 Potassium (Unsp spec) [Mass/Vol] 4.1 mmol/L 3.3-5.1 [facility] Prothrombin Time w/INRon INR Normal [facility] Comment on above: Result Comment: Ray toussaint via OM: Ordered Performed By: #### L 300.3900 ####[facility] [address] [place], [place], [id number] PROTIME Normal 11.7-14.9 [facility] Comment on above: Result Comment: Ray toussaint via OM: Ordered Performed By: #### L 300.3900 ####[facility] [address] [place], [place], [id number] RBC Auto (Bld) [#/Vol]Ordere d By: Malika Fonseca on 05-09-2025 RBC (Bld) [#/Vol] 2.59 10*6/uL Low 4.6-6.2 [facility] Serum creatinine measurement (mass/volume)Ordered By: Malika Fonseca on 05-09-2025 Creatinine [Mass/Vol] 2.87 mg/dL High 0.70-1.20 [facility] Serum glucose measurement (m ass/volume)Ordered By: Malika Fonseca on 05-09-2025 Glucose [Mass/Vol] 336 mg/dL High 70-99 [facility] Serum or plasma calcium nikkie urement (mass/volume)Ordered By: Malika Fonseca on 05-09-2025 Calcium [Mass/Vol] 8.3 mg/dL 7.6-11.0 [facility] Serum or plasma urea nitroge n measurement (mass/volume)Ordered By: Malika Fonseca on 05-09-2025 Urea nitrogen [Mass/Vol] 80 mg/dL High 4-19 [facility] Sodium levelOrdered By: Malika Fonseca on 05-09-2025 Sodium [Moles/Vol] 140 mmol/L 133-145 [facility] White blood cell (WBC) count Ordered By: Malika Fonseca on 05-09-2025 WBC (Bld) [#/Vol] 6.3 10*3/uL 4.4-11.0 [facility] Basic Metabolic Profile (BMP )on 05-08-2025 BUN/CRE 29.0 RATIO High 10-20 [facility] Comment on above: Performed By: #### L 500.2500, L503.6030, L501.9520, L503.6550, L503.0106, L100.0100 ####[facility] [address] [place], [address] Calcium [Mass/Vol] 8.6 mg/dL Normal 7.6-11.0 [facility] Comment on above: Performed By: #### L 500.2500, L503.6030, L501.9520, L503.6550, L503.0106, L100.0100 ####[facility] [address] [place], [address] Chloride [Moles/Vol] 103 mmol/L Normal 98-108 [facility] Comment on above: Performed By: #### L 500.2500, L503.6030, L501.9520, L503.6550, L503.0106, L100.0100 ####[facility] [address] [place], [address] CO2 [Moles/Vol] 23.2 mmol/L Normal 21.0-32.0 [facility] Comment on above: Performed By: #### L 500.2500, L503.6030, L501.9520, L503.6550, L503.0106, L100.0100 ####[facility] [address] [place], [address] Creatinine [Mass/Vol] 2.91 mg/dL High 0.70-1.20 [facility] Comment on above: Performed By: #### L 500.2500, L503.6030, L501.9520, L503.6550, L503.0106, L100.0100 ####[facility] [address] [place], [address] ECRCL 18.61 ml/min Low 50-250 [facility] Comment on above: Performed By: #### L 500.2500, L503.6030, L501.9520, L503.6550, L503.0106, L100.0100 ####[facility] [address] [place], [address] GAP 14 Normal 5-15 [facility] Comment on above: Performed By: #### L 500.2500, L503.6030, L501.9520, L503.6550, L503.0106, L100.0100 ####[facility] [address] [place], [address] GFR/1.73 sq M.predicted among non-blacks MDRD (S/P/Bld) [Vol rate/Area] 21 mL/min/{1.73_m2} Low >60 [facility] Comment on above: Result Comment: mL/m in/1.73m2 CKD-EPI Creatinine Equation (2020) Performed By: #### L 500.2500, L503.6030, L501.9520, L503.6550, L503.0106, L100.0100 ####[facility] [address] [place], [address] Glucose [Mass/Vol] 247 mg/dL High 70-99 [facility] Comment on above: Performed By: #### L 500.2500, L503.6030, L501.9520, L503.6550, L503.0106, L100.0100 ####[facility] [address] [place], [address] Potassium [Moles/Vol] 4.5 mmol/L Normal 3.3-5.1 [facility] Comment on above: Performed By: #### L 500.2500, L503.6030, L501.9520, L503.6550, L503.0106, L100.0100 ####[facility] [address] [place], [address] Sodium [Moles/Vol] 140 mmol/L Normal 133-145 [facility] Comment on above: Performed By: #### L 500.2500, L503.6030, L501.9520, L503.6550, L503.0106, L100.0100 ####[facility] [address] [place], [address] Urea nitrogen [Mass/Vol] 85 mg/dL High 4-19 [facility] Comment on above: Performed By: #### L 500.2500, L503.6030, L501.9520, L503.6550, L503.0106, L100.0100 ####[facility] [address] [place], [address] Bedside Glucoseon 05-08-2024 FINGERSTICK GLU 315 mg/dL High 74-106 [facility] Comment on above: Result Comment: ADITI GEMENT OF PATIENT CARE PER NURSING PROTOCOL Performed By: #### L 501.080 ####[facility] [address] [place], [address] FINGERSTICK GLU 247 mg/dL High -106 [facility] Comment on above: Result Comment: ADITI GEMENT OF PATIENT CARE PER NURSING PROTOCOL Performed By: #### L 501.080 ####[facility] [address] [place], [address] FINGERSTICK GLU 227 mg/dL High -106 [facility] Comment on above: Result Comment: ADITI GEMENT OF PATIENT CARE PER NURSING PROTOCOL Performed By: #### L 501.080 ####[facility] [address] [place], [address] FINGERSTICK GLU 241 mg/dL High [address] [place] [address] Comment on above: Result Comment: ADITI GEMENT OF PATIENT CARE PER NURSING PROTOCOL Performed By: #### L 501.080 ####[facility] [address] [place], [address] CBC W/Diff, Automatedon 07-0 Absolute Lymph 1.03 X10 3/uL Normal 0.83-4.51 [facility] Comment on above: Performed By: #### L 500.2500, L503.6030, L501.9520, L503.6550, L503.0106, L100.0100 ####[facility] [address] [place], [address] Absolute Neut 10.0 X10 3/uL High 2.0-7.7 [facility] Comment on above: Performed By: #### L 500.2500, L503.6030, L501.9520, L503.6550, L503.0106, L100.0100 ####[facility] [address] [place], [address] Basophils/100 WBC (Bld) 0.3 % Normal 0-1 [facility] Comment on above: Performed By: #### L 500.2500, L503.6030, L501.9520, L503.6550, L503.0106, L100.0100 ####[facility] [address] [place], [address] Eosinophils/100 WBC (Bld) 0.6 % Normal 0-5 [facility] Comment on above: Performed By: #### L 500.2500, L503.6030, L501.9520, L503.6550, L503.0106, L100.0100 ####[facility] [address] [place], [address] Erythrocyte distribution width (RBC) [Ratio] 14.3 % Normal 11.6-14.6 [facility] Comment on above: Performed By: #### L 500.2500, L503.6030, L501.9520, L503.6550, L503.0106, L100.0100 ####[facility] [address] [place], [address] Hematocrit (Bld) [Volume fraction] 27.0 % Low 40-54 [facility] Comment on above: Performed By: #### L 500.2500, L503.6030, L501.9520, L503.6550, L503.0106, L100.0100 ####[facility] [address] [place], [address] Hemoglobin (Bld) [Mass/Vol] 8.6 g/dL Low 13.0-16.5 [facility] Comment on above: Performed By: #### L 500.2500, L503.6030, L501.9520, L503.6550, L503.0106, L100.0100 ####[facility] [address] [place], [address] IG% 0.700 Normal 0.0-0.9 [facility] Comment on above: Result Comment: IG% - Immature Granulocytes (promyelocytes, myelocytes andmetamyelocytes) > 1% indicates that a LEFT SHIFT is Present. Performed By: #### L 500.2500, L503.6030, L501.9520, L503.6550, L503.0106, L100.0100 ####[facility] [address] [place], [address] Lymphocytes/100 WBC (Bld) 8.7 % Low 19-41 [facility] Comment on above: Performed By: #### L 500.2500, L503.6030, L501.9520, L503.6550, L503.0106, L100.0100 ####[facility] [address] [place], [address] MCH (RBC) [Entitic mass] 29.2 pg Normal 27.0-32.0 [facility] Comment on above: Performed By: #### L 500.2500, L503.6030, L501.9520, L503.6550, L503.0106, L100.0100 ####[facility] [address] [place], [address] MCHC (RBC) [Mass/Vol] 31.9 g/dL Low 32-36 [facility] Comment on above: Performed By: #### L 500.2500, L503.6030, L501.9520, L503.6550, L503.0106, L100.0100 ####[facility] [address] [place], [address] MCV (RBC) [Entitic vol] 91.5 fL Normal 80-94 [facility] Comment on above: Performed By: #### L 500.2500, L503.6030, L501.9520, L503.6550, L503.0106, L100.0100 ####[facility] [address] [place], [address] Monocytes/100 WBC (Bld) 4.6 % Normal 0-10 [facility] Comment on above: Performed By: #### L 500.2500, L503.6030, L501.9520, L503.6550, L503.0106, L100.0100 ####[facility] [address] [place], [address] Neutrophils/100 WBC (Bld) 85.1 % High 47-70 [facility] Comment on above: Performed By: #### L 500.2500, L503.6030, L501.9520, L503.6550, L503.0106, L100.0100 ####[facility] [address] [place], [address] Nucleated RBC (Bld) [#/Vol] 0 10*3/uL Normal 0-5 [facility] Comment on above: Performed By: #### L 500.2500, L503.6030, L501.9520, L503.6550, L503.0106, L100.0100 ####[facility] [address] [place], [address] Platelet mean volume (Bld) [Entitic vol] 11.0 fL Normal 6.2-12.0 [facility] Comment on above: Performed By: #### L 500.2500, L503.6030, L501.9520, L503.6550, L503.0106, L100.0100 ####[facility] [address] [place], [address] Platelets (Bld) [#/Vol] 193 10*3/uL Normal 150-450 [facility] Comment on above: Performed By: #### L 500.2500, L503.6030, L501.9520, L503.6550, L503.0106, L100.0100 ####[facility] [address] [place], [address] RBC (Bld) [#/Vol] 2.95 10*6/uL Low 4.6-6.2 [facility] Comment on above: Performed By: #### L 500.2500, L503.6030, L501.9520, L503.6550, L503.0106, L100.0100 ####[facility] [address] [place], [address] RDW SD 47.8 fl High 35.1-43.9 [facility] Comment on above: Performed By: #### L 500.2500, L503.6030, L501.9520, L503.6550, L503.0106, L100.0100 ####[facility] [address] [place], [address] WBC (Bld) [#/Vol] 11.8 10*3/uL High 4.4-11.0 [facility] Comment on above: Performed By: #### L 500.2500, L503.6030, L501.9520, L503.6550, L503.0106, L100.0100 ####[facility] [address] [place], [address] Culture, Blood (WB)on 2024 CUB Blood cultures x2, from two different sites No growth in 48 hours. Normal [facility] Comment on above: Performed By: #### L 300.3900, L100.0100, M200.1000, L500.4050, L503.7505, L300.4310, L503.6005 ####[facility] [address] [place], [address] Erythrocyte folate measureme nt with hematocritOrdered By: Malika Fonseca on 05-08-2025 Hematocrit (Bld) [Volume fraction] 28.6 % Low 37.5-51.0 [facility] Ferritinon 05-08-2025 Ferritin [Mass/Vol] 92 ng/mL Normal 37-417 [facility] Comment on above: Performed By: #### L 500.2500, L503.6030, L501.9520, L503.6550, L503.0106, L100.0100 ####[facility] [address] [place], [address] Iron measurement (mass/mass) Ordered By: Malika Fonseca on 05-08-2025 Iron (Unsp spec) [Mass/Mass] 22 ug/dL Low 65-175 [facility] Iron+Iron Binding Capacityon 05-08-2025 Iron [Mass/Vol] 22 ug/dL Low 65-175 [facility] Comment on above: Performed By: #### L 500.2500, L503.6030, L501.9520, L503.6550, L503.0106, L100.0100 ####[facility] [address] [place], [address] IRON SATURATION 7.0 Low 9-55 [facility] Comment on above: Performed By: #### L 500.2500, L503.6030, L501.9520, L503.6550, L503.0106, L100.0100 ####[facility] [address] [place], [address] TIBC 309 ug/dL Normal 250-450 [facility] Comment on above: Performed By: #### L 500.2500, L503.6030, L501.9520, L503.6550, L503.0106, L100.0100 ####[facility] [address] [place], [address] UIBC 287 ug/dL Normal 228-428 [facility] Comment on above: Performed By: #### L 500.2500, L503.6030, L501.9520, L503.6550, L503.0106, L100.0100 ####[facility] [address] [place], [address] No Panel InformationOrdered By: Malika Fonseca on 05-08-2025 287 ug/dL 228-428 [facility] Prothrombin Time w/INRon INR Normal [facility] Comment on above: Result Comment: Canjonathan elled via OM: MD Ordered Performed By: #### L 300.3900 ####[facility] [address] [place], [address] PROTIME Normal 11.7-14.9 [facility] Comment on above: Result Comment: Ray elloumar via OM: MD Ordered Performed By: #### L 300.3900 ####[facility] [address] [place], [address] Serum or plasma ferritin heriberto surement (mass/volume)Ordered By: Malika Fonseca on 05-08-2025 Ferritin [Mass/Vol] 92 ng/mL 37-417 [facility] Serum or plasma iron saturat ion measurement (mass fraction)Ordered By: Malika Fonseca on 05-08-2025 Iron saturation [Mass fraction] 7.0 % Low 9-55 [facility] TSH DL <= 0.005 mIU/L QnOrde red By: Malika Fonseca on 05-08-2025 TSH Qn 0.979 uIU/mL 0.300-4.200 [facility] Thyroid Stim Hormone (TSH)on 05-08-2025 TSH 0.979 uIU/mL Normal 0.300-4.200 [facility] Comment on above: Performed By: #### L 500.2500, L503.6030, L501.9520, L503.6550, L503.0106, L100.0100 ####[facility] [address] [place], [address] Urine Cultureon 05-08-2025 URC Mixed Gram Positive Organisms [place] Count 25,000-50,000 MIXC Mixed contaminants. Submit a new specimen if indicated. Normal [facility] Comment on above: Performed By: #### M 100.2200, L400.0001 ####[facility] [address] [place], [address] Vitamin B12on 05-08-2025 Cobalamin (Vitamin B12) [Mass/Vol] 670 pg/mL Normal 180-914 [facility] Comment on above: Performed By: #### L 500.2500, L503.6030, L501.9520, L503.6550, L503.0106, L100.0100 ####[facility] [address] [place], [address] Vitamin B12 ser/plasOrdered By: Malika Fonseca on 05-08-2025 Cobalamin (Vitamin B12) [Mass/Vol] 670 pg/mL 180-914 [facility] Bedside Glucoseon 05-07-2025 FINGERSTICK GLU 344 mg/dL High 74-106 [facility] Comment on above: Result Comment: ADITI GEMENT OF PATIENT CARE PER NURSING PROTOCOL Performed By: #### L 501.080 ####[facility] [address] [place], [address] FINGERSTICK GLU 342 mg/dL High 74-106 [facility] Comment on above: Result Comment: ADITI GEMENT OF PATIENT CARE PER NURSING PROTOCOL Performed By: #### L 501.080 ####[facility] [address] [place], [address] FINGERSTICK GLU 315 mg/dL High 74-106 [facility] Comment on above: Result Comment: ADITI GEMENT OF PATIENT CARE PER NURSING PROTOCOL Performed By: #### L 501.080 ####[facility] [address] [place], [address] FINGERSTICK GLU 333 mg/dL High 74-106 [facility] Comment on above: Result Comment: ADITI GEMENT OF PATIENT CARE PER NURSING PROTOCOL Performed By: #### L 501.080 ####[facility] [address] [place], [address] Bilirubin, totalOrdered By: Carlita Raygoza on 05-07-2025 Bilirubin [Mass/Vol] 0.46 mg/dL 0.00-1.30 [facility] CBC W/Diff, Automatedon Absolute Lymph 1.13 X10 3/uL Normal 0.83-4.51 [facility] Comment on above: Performed By: #### L 300.3900, L100.0100 ####[facility] [address] [place], [address] Absolute Neut 6.9 X10 3/uL Normal 2.0-7.7 [facility] Comment on above: Performed By: #### L 300.3900, L100.0100 ####[facility] [address] [place], [address] Basophils/100 WBC (Bld) 0.2 % Normal 0-1 [facility] Comment on above: Performed By: #### L 300.3900, L100.0100 ####[facility] [address] [place], [address] Eosinophils/100 WBC (Bld) 0.0 % Normal 0-5 [facility] Comment on above: Performed By: #### L 300.3900, L100.0100 ####[facility] [address] [place], [address] Erythrocyte distribution width (RBC) [Ratio] 14.5 % Normal 11.6-14.6 [facility] Comment on above: Performed By: #### L 300.3900, L100.0100 ####[facility] [address] [place], [address] Hematocrit (Bld) [Volume fraction] 22.4 % Low 40-54 [facility] Comment on above: Performed By: #### L 300.3900, L100.0100 ####[facility] [address] [place], [address] Hemoglobin (Bld) [Mass/Vol] 7.2 g/dL Low 13.0-16.5 [facility] Comment on above: Performed By: #### L 300.3900, L100.0100 ####[facility] [address] [place], [address] IG% 0.700 Normal 0.0-0.9 [facility] Comment on above: Result Comment: IG% - Immature Granulocytes (promyelocytes, myelocytes andmetamyelocytes) > 1% indicates that a LEFT SHIFT is Present. Performed By: #### L 300.3900, L100.0100 ####[facility] [address] [place], [address] Lymphocytes/100 WBC (Bld) 13.1 % Low 19-41 [facility] Comment on above: Performed By: #### L 300.3900, L100.0100 ####[facility] [address] [place], [address] MCH (RBC) [Entitic mass] 29.6 pg Normal 27.0-32.0 [facility] Comment on above: Performed By: #### L 300.3900, L100.0100 ####[facility] [address] [place], [address] MCHC (RBC) [Mass/Vol] 32.1 g/dL Normal 32-36 [facility] Comment on above: Performed By: #### L 300.3900, L100.0100 ####[facility] [address] [place], [address] MCV (RBC) [Entitic vol] 92.2 fL Normal 80-94 [facility] Comment on above: Performed By: #### L 300.3900, L100.0100 ####[facility] [address] [place], [address] Monocytes/100 WBC (Bld) 6.5 % Normal 0-10 [facility] Comment on above: Performed By: #### L 300.3900, L100.0100 ####[facility] [address] [place], [address] Neutrophils/100 WBC (Bld) 79.5 % High 47-70 [facility] Comment on above: Performed By: #### L 300.3900, L100.0100 ####[facility] [address] [place], [address] Nucleated RBC (Bld) [#/Vol] 0 10*3/uL Normal 0-5 [facility] Comment on above: Performed By: #### L 300.3900, L100.0100 ####[facility] [address] [place], [address] Platelet mean volume (Bld) [Entitic vol] 11.4 fL Normal 6.2-12.0 [facility] Comment on above: Performed By: #### L 300.3900, L100.0100 ####[facility] [address] [place], [address] Platelets (Bld) [#/Vol] 154 10*3/uL Normal 150-450 [facility] Comment on above: Performed By: #### L 300.3900, L100.0100 ####[facility] [address] [place], [address] RBC (Bld) [#/Vol] 2.43 10*6/uL Low 4.6-6.2 [facility] Comment on above: Performed By: #### L 300.3900, L100.0100 ####[facility] [address] [place], [address] RDW SD 48.5 fl High 35.1-43.9 [facility] Comment on above: Performed By: #### L 300.3900, L100.0100 ####[facility] [address] [place], [address] WBC (Bld) [#/Vol] 8.6 10*3/uL Normal 4.4-11.0 [facility] Comment on above: Performed By: #### L 300.3900, L100.0100 ####[facility] [address] [place], [address] [facility] Albumin [Mass/Vol] 3.2 g/dL Low 3.4-4.8 [facility] Comment on above: Performed By: #### L 500.4050, L501.2300, L501.5200 ####[facility] [address] [place], [address] Albumin/Globulin [Mass ratio] 1.6 {ratio} Normal 0.9-2.4 [facility] Comment on above: Performed By: #### L 500.4050, L501.2300, L501.5200 ####[facility] [address] [place], [address] ALK PHOS 67 U/L Normal 40-129 [facility] Comment on above: Performed By: #### L 500.4050, L501.2300, L501.5200 ####[facility] [address] [place], [address] ALT [Catalytic activity/Vol] 35 U/L Normal <=46 [facility] Comment on above: Performed By: #### L 500.4050, L501.2300, L501.5200 ####[facility] [address] [place], [address] AST [Catalytic activity/Vol] 34 U/L Normal <=37 [facility] Comment on above: Performed By: #### L 500.4050, L501.2300, L501.5200 ####[facility] [address] [place], [address] Bilirubin [Mass/Vol] 0.46 mg/dL Normal 0.00-1.30 [facility] Comment on above: Performed By: #### L 500.4050, L501.2300, L501.5200 ####[facility] [address] [place], [address] BUN/CRE 30.4 RATIO High 10-20 [facility] Comment on above: Performed By: #### L 500.4050, L501.2300, L501.5200 ####[facility] [address] [place], [address] Calcium [Mass/Vol] 8.0 mg/dL Normal 7.6-11.0 [facility] Comment on above: Performed By: #### L 500.4050, L501.2300, L501.5200 ####[facility] [address] [place], [address] Chloride [Moles/Vol] 100 mmol/L Normal 98-108 [facility] Comment on above: Performed By: #### L 500.4050, L501.2300, L501.5200 ####[facility] [address] [place], [address] CO2 [Moles/Vol] 22.9 mmol/L Normal 21.0-32.0 [facility] Comment on above: Performed By: #### L 500.4050, L501.2300, L501.5200 ####[facility] [address] [place], [address] Creatinine [Mass/Vol] 3.03 mg/dL High 0.70-1.20 [facility] Comment on above: Performed By: #### L 500.4050, L501.2300, L501.5200 ####[facility] [address] [place], [address] ECRCL 17.88 ml/min Low 50-250 [facility] Comment on above: Performed By: #### L 500.4050, L501.2300, L501.5200 ####[facility] [address] [place], [address] GAP 14 Normal 5-15 [facility] Comment on above: Performed By: #### L 500.4050, L501.2300, L501.5200 ####[facility] [address] [place], [address] GFR/1.73 sq M.predicted among non-blacks MDRD (S/P/Bld) [Vol rate/Area] 20 mL/min/{1.73_m2} Low >60 [facility] Comment on above: Result Comment: mL/m in/1.73m2 CKD-EPI Creatinine Equation (2020) Performed By: #### L 500.4050, L501.2300, L501.5200 ####[facility] [address] [place], [address] Globulin (S) [Mass/Vol] 2.0 g/dL Low 2.2-4.2 [facility] Comment on above: Performed By: #### L 500.4050, L501.2300, L501.5200 ####[facility] [address] [place], [address] Glucose [Mass/Vol] 407 mg/dL High 70-99 [facility] Comment on above: Performed By: #### L 500.4050, L501.2300, L501.5200 ####[facility] [address] [place], [address] Potassium [Moles/Vol] 5.0 mmol/L Normal 3.3-5.1 [facility] Comment on above: Performed By: #### L 500.4050, L501.2300, L501.5200 ####[facility] [address] [place], [address] Sodium [Moles/Vol] 136 mmol/L Normal 133-145 [facility] Comment on above: Performed By: #### L 500.4050, L501.2300, L501.5200 ####[facility] [address] [place], [address] T PROT 5.2 g/dL Low 5.9-8.4 [facility] Comment on above: Performed By: #### L 500.4050, L501.2300, L501.5200 ####[facility] [address] [place], [address] Urea nitrogen [Mass/Vol] 92 mg/dL High 4-19 [facility] Comment on above: Performed By: #### L 500.4050, L501.2300, L501.5200 ####[facility] [address] [place], [address] Electrocardiogram reportOrde red By: Bernardo Davis on 05-07-2025 EKG study [facility] Other Phone: Magnesiumon 05-07-2025 Magnesium [Mass/Vol] 2.6 mg/dL High 1.5-2.2 [facility] Comment on above: Performed By: #### L 500.4050, L501.2300, L501.5200 ####[facility] [address] [place], [address] Magnesium measurement (mass/ volume)Ordered By: Carlita Raygoza on 05-07-2025 Magnesium (Unsp spec) [Mass/Vol] 2.6 mg/dL High 1.5-2.2 [facility] No Panel InformationOrdered By: Carlita Raygoza on 05-07-2025 34 U/L <38 [facility] Phosphoruson 05-07-2025 Phosphate [Mass/Vol] 6.1 mg/dL High 2.7-4.5 [facility] Comment on above: Performed By: #### L 500.4050, L501.2300, L501.5200 ####[facility] [address] [place], [address] Prothrombin Time w/INRon INR Coag (PPP) [Relative time] 1.1 {INR} Normal [facility] Comment on above: Performed By: #### L 300.3900, L100.0100 ####[facility] [address] [place], [address] PT Coag (PPP) [Time] 14.9 s Normal 11.7-14.9 [facility] Comment on above: Performed By: #### L 300.3900, L100.0100 ####[facility] [address] [place], [address] Prothrombin timeOrdered By: Carlita Raygoza on 05-07-2025 PT Coag (PPP) [Time] 14.9 s 11.7-14.9 [facility] Serum globulin measurementOr dered By: Carlita Raygoza on 05-07-2025 Globulin (S) [Mass/Vol] 2.0 g/dL Low 2.2-4.2 [facility] Serum or plasma alanine clayton otransferase (ALT) measurementOrdered By: Carlita Raygoza on 05-07-2025 ALT [Catalytic activity/Vol] 35 U/L <47 [facility] Serum or plasma albumin nikkie urement (mass/volume)Ordered By: Carlita Raygoza on 05-07-2025 Albumin [Mass/Vol] 3.2 g/dL Low 3.4-4.8 [facility] Serum or plasma albumin/glob ulin mass ratioOrdered By: Carlita Raygoza on 05-07-2025 Albumin/Globulin [Mass ratio] 1.6 {ratio} 0.9-2.4 [facility] Serum or plasma alkaline dwight sphatase measurementOrdered By: Carlita Raygoza on 05-07-2025 ALP [Catalytic activity/Vol] 67 U/L 40-129 [facility] Total proteinOrdered By: Trixie Raygoza on 05-07-2025 Protein [Mass/Vol] 5.2 g/dL Low 5.9-8.4 [facility] Assessment of wrist artery p atency prior to arterial punctureOrdered By: Carlita Raygoza on 05-06-2025 Arterial patency Wrist artery --pre arterial puncture Positive [facility] Bedside Glucoseon 05-06-2025 FINGERSTICK GLU 444 mg/dL High 74-106 [facility] Comment on above: Result Comment: ADITI GEMENT OF PATIENT CARE PER NURSING PROTOCOL Performed By: #### L 501.080 ####[facility] [address] [place], [address] FINGERSTICK GLU 421 mg/dL High [address] [facility] Comment on above: Result Comment: ADITI GEMENT OF PATIENT CARE PER NURSING PROTOCOL Performed By: #### L 501.080 ####[facility] [address] [place], [address] FINGERSTICK GLU 256 mg/dL High 74-106 [facility] Comment on above: Result Comment: ADITI GEMENT OF PATIENT CARE PER NURSING PROTOCOL Performed By: #### L 501.080 ####[facility] [address] [place], [address] FINGERSTICK GLU 204 mg/dL High [address] [place] [address] Comment on above: Result Comment: ADITI GEMENT OF PATIENT CARE PER NURSING PROTOCOL Performed By: #### L 501.080 ####[facility] [address] [place], [address] Blood Gases by CPSon 025 FILI TEST Positive Normal [facility] Comment on above: Performed By: #### L 9000.0800 ####[facility] [address] [place], [address] Base excess Calc (Bld) [Moles/Vol] 4 mmol/L High -2 to +2 [facility] Comment on above: Performed By: #### L 9000.0800 ####[facility] [address] [place], [address] Blood Gas Type ART Normal [facility] Comment on above: Performed By: #### L 9000.0800 ####[facility] [address] [place], [address] CO2 [Moles/Vol] 29 mmol/L Normal [facility] Comment on above: Performed By: #### L 9000.0800 ####[facility] [address] [place], [address] Comment 10/08 Normal [facility] Comment on above: Performed By: #### L 9000.0800 ####[facility] [address] [place], [address] FI02 30.0 Normal [facility] Comment on above: Performed By: #### L 9000.0800 ####[facility] [address] [place], [address] HCO3 (Bld) [Moles/Vol] 27.5 mmol/L High 22-26 [facility] Comment on above: Performed By: #### L 9000.0800 ####[facility] [address] [place], [address] Normal [facility] Comment on above: Performed By: #### L 9000.0800 ####[facility] [address] [place], [address] O2 Delivery Dev BiPAP Normal [facility] Comment on above: Performed By: #### L 9000.0800 ####[facility] [address] [place], [address] pCO2 34.9 mmHg Low 35-45 [facility] Comment on above: Performed By: #### L 9000.0800 ####[facility] [address] [place], [address] PEEP 8 Normal [facility] Comment on above: Performed By: #### L 9000.0800 ####[facility] [address] [place], [address] pH (Bld) 7.51 [pH] High 7.35-7.45 [facility] Comment on above: Performed By: #### L 9000.0800 ####[facility] [address] [place], [address] PO2 95 mmHG Normal 75-100 [facility] Comment on above: Performed By: #### L 9000.0800 ####[facility] [address] [place], [address] RR 12 Normal [facility] Comment on above: Performed By: #### L 9000.0800 ####[facility] [address] [place], [address] SITE R Radial Normal [facility] Comment on above: Performed By: #### L 9000.0800 ####[facility] [address] [place], [address] SO2 98 Normal 95-99 [facility] Comment on above: Performed By: #### L 9000.0800 ####[facility] [address] [place], [address] FILI TEST Positive Normal [facility] Comment on above: Performed By: #### L 9000.0800 ####[facility] [address] [place], [address] Base excess Calc (Bld) [Moles/Vol] 4 mmol/L High -2 to +2 [facility] Comment on above: Performed By: #### L 9000.0800 ####[facility] [address] [place], [address] Blood Gas Type ART Normal [facility] Comment on above: Performed By: #### L 9000.0800 ####[facility] [address] [place], [address] CO2 [Moles/Vol] 29 mmol/L Normal [facility] Comment on above: Performed By: #### L 9000.0800 ####[facility] [address] [place], [address] Comment 14 8 Normal [facility] Comment on above: Performed By: #### L 9000.0800 ####[facility] [address] [place], [address] FI02 50.0 Normal [facility] Comment on above: Performed By: #### L 9000.0800 ####[facility] [address] [place], [address] HCO3 (Bld) [Moles/Vol] 27.7 mmol/L High 22-26 [facility] Comment on above: Performed By: #### L 9000.0800 ####[facility] [address] [place], [address] Mode Not entered Normal [facility] Comment on above: Performed By: #### L 9000.0800 ####[facility] [address] [place], [address] O2 Delivery Dev BiPAP Normal [facility] Comment on above: Performed By: #### L 9000.0800 ####[facility] [address] [place], [address] pCO2 41.3 mmHg Normal 35-45 [facility] Comment on above: Performed By: #### L 9000.0800 ####[facility] [address] [place], [address] PEEP 8 Normal [facility] Comment on above: Performed By: #### L 9000.0800 ####[facility] [address] [place], [address] pH (Bld) 7.44 [pH] Normal 7.35-7.45 [facility] Comment on above: Performed By: #### L 9000.0800 ####[facility] [address] [place], [address] PO2 73 mmHG Low 75-100 [facility] Comment on above: Performed By: #### L 9000.0800 ####[facility] [address] [place], [address] RR 12 Normal [facility] Comment on above: Performed By: #### L 9000.0800 ####[facility] [address] [place], [address] SITE L Radial Normal [facility] Comment on above: Performed By: #### L 9000.0800 ####[facility] [address] [place], [address] SO2 95 Normal 95-99 [facility] Comment on above: Performed By: #### L 9000.0800 ####[facility] [address] [place], [address] Blood base excess determinat ionOrdered By: Carlita Raygoza on 05-06-2025 Base excess Calc (BldV) [Moles/Vol] 4 mmol/L High -2-2 [facility] Blood bicarbonate measuremen tOrdered By: Carlita Raygoza on 05-06-2025 HCO3 (Bld) [Moles/Vol] 27.5 mmol/L High 22-26 [facility] CBC W/Diff, Automatedon 07-0 Absolute Lymph 0.42 X10 3/uL Low 0.83-4.51 [facility] Comment on above: Performed By: #### L 500.4050, L501.2300, L503.7505, L100.0100 ####[facility] [address] [place], [address] Absolute Neut 11.6 X10 3/uL High 2.0-7.7 [facility] Comment on above: Performed By: #### L 500.4050, L501.2300, L503.7505, L100.0100 ####[facility] [address] [place], [address] Basophils/100 WBC (Bld) 0.1 % Normal 0-1 [facility] Comment on above: Performed By: #### L 500.4050, L501.2300, L503.7505, L100.0100 ####[facility] [address] [place], [address] Eosinophils/100 WBC (Bld) 0.0 % Normal 0-5 [facility] Comment on above: Performed By: #### L 500.4050, L501.2300, L503.7505, L100.0100 ####[facility] [address] [place], [address] Erythrocyte distribution width (RBC) [Ratio] 14.2 % Normal 11.6-14.6 [facility] Comment on above: Performed By: #### L 500.4050, L501.2300, L503.7505, L100.0100 ####[facility] [address] [place], [address] Hematocrit (Bld) [Volume fraction] 25.8 % Low 40-54 [facility] Comment on above: Performed By: #### L 500.4050, L501.2300, L503.7505, L100.0100 ####[facility] [address] [place], [address] Hemoglobin (Bld) [Mass/Vol] 8.2 g/dL Low 13.0-16.5 [facility] Comment on above: Performed By: #### L 500.4050, L501.2300, L503.7505, L100.0100 ####[facility] [address] [place], [address] IG% 0.500 Normal 0.0-0.9 [facility] Comment on above: Result Comment: IG% - Immature Granulocytes (promyelocytes, myelocytes andmetamyelocytes) > 1% indicates that a LEFT SHIFT is Present. Performed By: #### L 500.4050, L501.2300, L503.7505, L100.0100 ####[facility] [address] [place], [address] Lymphocytes/100 WBC (Bld) 3.4 % Low 19-41 [facility] Comment on above: Performed By: #### L 500.4050, L501.2300, L503.7505, L100.0100 ####[facility] [address] [place], [address] MCH (RBC) [Entitic mass] 29.5 pg Normal 27.0-32.0 [facility] Comment on above: Performed By: #### L 500.4050, L501.2300, L503.7505, L100.0100 ####[facility] [address] [place], [address] MCHC (RBC) [Mass/Vol] 31.8 g/dL Low 32-36 [facility] Comment on above: Performed By: #### L 500.4050, L501.2300, L503.7505, L100.0100 ####[facility] [address] [place], [address] MCV (RBC) [Entitic vol] 92.8 fL Normal 80-94 [facility] Comment on above: Performed By: #### L 500.4050, L501.2300, L503.7505, L100.0100 ####[facility] [address] [place], [address] Monocytes/100 WBC (Bld) 1.7 % Normal 0-10 [facility] Comment on above: Performed By: #### L 500.4050, L501.2300, L503.7505, L100.0100 ####[facility] [address] [place], [address] Neutrophils/100 WBC (Bld) 94.3 % High 47-70 [facility] Comment on above: Performed By: #### L 500.4050, L501.2300, L503.7505, L100.0100 ####[facility] [address] [place], [address] Nucleated RBC (Bld) [#/Vol] 0 10*3/uL Normal 0-5 [facility] Comment on above: Performed By: #### L 500.4050, L501.2300, L503.7505, L100.0100 ####[facility] [address] [place], [address] Platelet mean volume (Bld) [Entitic vol] 10.9 fL Normal 6.2-12.0 [facility] Comment on above: Performed By: #### L 500.4050, L501.2300, L503.7505, L100.0100 ####[facility] [address] [place], [address] Platelets (Bld) [#/Vol] 178 10*3/uL Normal 150-450 [facility] Comment on above: Performed By: #### L 500.4050, L501.2300, L503.7505, L100.0100 ####[facility] [address] [place], [address] RBC (Bld) [#/Vol] 2.78 10*6/uL Low 4.6-6.2 [facility] Comment on above: Performed By: #### L 500.4050, L501.2300, L503.7505, L100.0100 ####[facility] [address] [place], [address] RDW SD 48.0 fl High 35.1-43.9 [facility] Comment on above: Performed By: #### L 500.4050, L501.2300, L503.7505, L100.0100 ####[facility] [address] [place], [address] WBC (Bld) [#/Vol] 12.3 10*3/uL High 4.4-11.0 [facility] Comment on above: Performed By: #### L 500.4050, L501.2300, L503.7505, L100.0100 ####[facility] [address] [place], [address] Comprehensive Metabolic Prof [facility] 05-06-2025 Albumin [Mass/Vol] 3.3 g/dL Low 3.4-4.8 [facility] Comment on above: Performed By: #### L 500.4050, L501.2300, L503.7505, L100.0100 ####[facility] [address] [place], [address] Albumin/Globulin [Mass ratio] 1.4 {ratio} Normal 0.9-2.4 [facility] Comment on above: Performed By: #### L 500.4050, L501.2300, L503.7505, L100.0100 ####[facility] [address] [place], [address] ALK PHOS 72 U/L Normal 40-129 [facility] Comment on above: Performed By: #### L 500.4050, L501.2300, L503.7505, L100.0100 ####[facility] [address] [place], [address] ALT [Catalytic activity/Vol] 38 U/L Normal <=46 [facility] Comment on above: Performed By: #### L 500.4050, L501.2300, L503.7505, L100.0100 ####[facility] [address] [place], [address] AST [Catalytic activity/Vol] 31 U/L Normal <=37 [facility] Comment on above: Performed By: #### L 500.4050, L501.2300, L503.7505, L100.0100 ####[facility] [address] [place], [address] Bilirubin [Mass/Vol] 0.34 mg/dL Normal 0.00-1.30 [facility] Comment on above: Performed By: #### L 500.4050, L501.2300, L503.7505, L100.0100 ####[facility] [address] [place], [address] BUN/CRE 30.3 RATIO High 10-20 [facility] Comment on above: Performed By: #### L 500.4050, L501.2300, L503.7505, L100.0100 ####[facility] [address] [place], [address] Calcium [Mass/Vol] 8.3 mg/dL Normal 7.6-11.0 [facility] Comment on above: Performed By: #### L 500.4050, L501.2300, L503.7505, L100.0100 ####[facility] [address] [place], [address] Chloride [Moles/Vol] 104 mmol/L Normal 98-108 [facility] Comment on above: Performed By: #### L 500.4050, L501.2300, L503.7505, L100.0100 ####[facility] [address] [place], [address] CO2 [Moles/Vol] 22.7 mmol/L Normal 21.0-32.0 [facility] Comment on above: Performed By: #### L 500.4050, L501.2300, L503.7505, L100.0100 ####[facility] [address] [place], [address] Creatinine [Mass/Vol] 2.46 mg/dL High 0.70-1.20 [facility] Comment on above: Performed By: #### L 500.4050, L501.2300, L503.7505, L100.0100 ####[facility] [address] [place], [address] ECRCL 21.95 ml/min Low 50-250 [facility] Comment on above: Performed By: #### L 500.4050, L501.2300, L503.7505, L100.0100 ####[facility] [address] [place], [address] GAP 16 High 5-15 [facility] Comment on above: Performed By: #### L 500.4050, L501.2300, L503.7505, L100.0100 ####[facility] [address] [place], [address] GFR/1.73 sq M.predicted among non-blacks MDRD (S/P/Bld) [Vol rate/Area] 26 mL/min/{1.73_m2} Low >60 [facility] Comment on above: Result Comment: mL/m in/1.73m2 CKD-EPI Creatinine Equation (2020) Performed By: #### L 500.4050, L501.2300, L503.7505, L100.0100 ####[facility] [address] [place], [address] Globulin (S) [Mass/Vol] 2.4 g/dL Normal 2.2-4.2 [facility] Comment on above: Performed By: #### L 500.4050, L501.2300, L503.7505, L100.0100 ####[facility] [address] [place], [address] Glucose [Mass/Vol] 189 mg/dL High 70-99 [facility] Comment on above: Performed By: #### L 500.4050, L501.2300, L503.7505, L100.0100 ####[facility] [address] [place], [address] Potassium [Moles/Vol] 4.0 mmol/L Normal 3.3-5.1 [facility] Comment on above: Performed By: #### L 500.4050, L501.2300, L503.7505, L100.0100 ####[facility] [address] [place], [address] Sodium [Moles/Vol] 143 mmol/L Normal 133-145 [facility] Comment on above: Performed By: #### L 500.4050, L501.2300, L503.7505, L100.0100 ####[facility] [address] [place], [address] T PROT 5.7 g/dL Low 5.9-8.4 [facility] Comment on above: Performed By: #### L 500.4050, L501.2300, L503.7505, L100.0100 ####[facility] [address] [place], [address] Urea nitrogen [Mass/Vol] 75 mg/dL High 4-19 [facility] Comment on above: Performed By: #### L 500.4050, L501.2300, L503.7505, L100.0100 ####[facility] [address] [place], [address] L499.0043on 05-06-2025 Trop T High Sen 141 ng/L Invalid Interpretation Code <=22 [facility] Comment on above: Result Comment: Crit ical Result(s) Called at:0030 by: DASIA MOYA TO CHACHA??Results read back by same. Performed By: #### L 499.0043 ####[facility] [address] [place], [address] L503.7505on 05-06-2025 Natriuretic peptide B (Bld) [Mass/Vol] 78228 pg/mL High <=1800 [facility] Comment on above: Result Comment: Hear t Failure Unlikely: < 300 pg/mLHeart Failure Likely< 50 Years: > 450 pg/mL50-75 Years: > 900 pg/mL>75 Years: > 1800 pg/mL Performed By: #### L 500.4050, L501.2300, L503.7505, L100.0100 ####[facility] [address] [place], [address] Lactic Acidon 05-06-2025 Lactate [Moles/Vol] mmol/L Normal 0.0-2.0 [facility] Comment on above: Performed By: #### L 503.6005 ####[facility] [address] [place], [address] Legionella Antigen Urineon 0 05-06-2025 LEGU Normal [facility] Comment on above: Performed By: #### M 300.4500, M300.4600 ####[facility] [address] [place], [address] M100.019on 05-06-2025 M100.019 Negative Normal [facility] Comment on above: Performed By: #### M 100.019 ####[facility] [address] [place], [address] Measurement, pHOrdered By: Deven Raygoza on 05-06-2025 pH (Unsp spec) 7.51 [pH] High 7.35-7.45 [facility] Natriuretic peptide.B prohor katja N-Terminal [Mass/volume] in Serum or PlasmaOrdered By: Nancy Henson on 05-06-2025 Natriuretic peptide.B prohormone N-Terminal [Mass/Vol] 60201 pg/mL High <1800 [facility] No Panel InformationOrdered By: Carlita Raygoza on 05-06-2025 ART [facility] R Radial [facility] ST [facility] BiPAP [facility] 12 [facility] 8 [facility] 10/08 [facility] Phosphoruson 05-06-2025 Phosphate [Mass/Vol] 5.2 mg/dL High 2.7-4.5 [facility] Comment on above: Performed By: #### L 500.4050, L501.2300, L503.7505, L100.0100 ####[facility] [address] [place], [address] RESPIRATORY PANEL MOLECULARo n 05-06-2025 RP PANEL Normal [facility] Comment on above: Performed By: #### M 100.638 ####[facility] [address] [place], [address] Strep pneumoniae Antig(UR,CS F)on 05-06-2025 STPAG Normal [facility] Comment on above: Performed By: #### M 300.4500, M300.4600 ####[facility] [address] [place], [address] Total carbon dioxide measure mentOrdered By: Carlita Raygoza on 05-06-2025 CO2 [Moles/Vol] 29 mmol/L [facility] 12 Lead EKGon 05-05-2025 12 Lead EKG Normal [facility] Absolute lymphocyte countOrd ered By: Curtis Amor on 05-05-2025 Lymphocytes Auto (Unsp spec) [#/Vol] 1.57 10*3/uL 0.83-4.51 [facility] Activated partial thrombopla stin time (aPTT) in platelet poor plasma by coagulation aOrdered By: Curtis Amor on 05-05-2025 aPTT Coag (PPP) [Time] 29.3 s 24.1-36.2 [facility] Anion gap in Serum or Plasma Ordered By: Curtis Amor on 05-05-2025 Anion gap [Moles/Vol] 16 mmol/L High 5-15 [facility] Automated lymphocyte count a s percentage of total leukocytesOrdered By: Curtis Amor on 05-05-2025 Lymphocytes/100 WBC Auto (Unsp spec) 9.3 % Low 19-41 [facility] BUN/creatinine ratioOrdered By: Curtis Amor on 05-05-2025 Urea nitrogen/Creatinine [Mass ratio] 26.2 mg/mg High 10-20 [facility] Basophil percentageOrdered B y: Curtis Amor on 05-05-2025 Basophils/100 WBC (Bld) 0.5 % 0-1 [facility] Bedside Glucoseon 05-05-2025 FINGERSTICK GLU 124 mg/dL High 74-106 [facility] Comment on above: Result Comment: ADITI GEMENT OF PATIENT CARE PER NURSING PROTOCOL Performed By: #### L 501.080 ####[facility] [address] [place], [address] Bilirubin Test strip Ql (U)O rdered By: Curtis Amor on 05-05-2025 Bilirubin Ql (U) Negative Negative [facility] Bilirubin, totalOrdered By: Curtis Amor on 05-05-2025 Bilirubin [Mass/Vol] 0.49 mg/dL 0.00-1.30 [facility] Blood Gases by CPSon 025 FILI TEST Positive Normal [facility] Comment on above: Performed By: #### L 9000.0800 ####[facility] [address] [place], [address] Base excess Calc (Bld) [Moles/Vol] 4 mmol/L High -2 to +2 [facility] Comment on above: Performed By: #### L 9000.0800 ####[facility] [address] [place], [address] Blood Gas Type ART Normal [facility] Comment on above: Performed By: #### L 0.0800 ####[facility] [address] [place], [address] CO2 [Moles/Vol] 29 mmol/L Normal [facility] Comment on above: Performed By: #### L 9000.0800 ####[facility] [address] [place], [address] Comment 14 8 Normal [facility] Comment on above: Performed By: #### L 0.0800 ####[facility] [address] [place], [address] FI02 35.0 Normal [facility] Comment on above: Performed By: #### L 9000.0800 ####[facility] [address] [place], [address] HCO3 (Bld) [Moles/Vol] 28.0 mmol/L High 22-26 [facility] Comment on above: Performed By: #### L 0.0800 ####[facility] [address] [place], [address] Mode Not entered Normal [facility] Comment on above: Performed By: #### L 0.0800 ####[facility] [address] [place], [address] O2 Delivery Dev BiPAP Normal [facility] Comment on above: Performed By: #### L 0.0800 ####[facility] [address] [place], [address] pCO2 38.8 mmHg Normal 35-45 [facility] Comment on above: Performed By: #### L 9000.0800 ####[facility] [address] [place], [address] PEEP 8 Normal [facility] Comment on above: Performed By: #### L 9000.0800 ####[facility] [address] [place], [address] pH (Bld) 7.47 [pH] High 7.35-7.45 [facility] Comment on above: Performed By: #### L 9000.0800 ####[facility] [address] [place], [address] PIP 14 Normal [facility] Comment on above: Performed By: #### L 9000.0800 ####[facility] [address] [place], [address] PO2 78 mmHG Normal 75-100 [facility] Comment on above: Performed By: #### L 9000.0800 ####[facility] [address] [place], [address] SITE L Radial Normal [facility] Comment on above: Performed By: #### L 9000.0800 ####[facility] [address] [place], [address] SO2 96 Normal 95-99 [facility] Comment on above: Performed By: #### L 9000.0800 ####[facility] [address] [place], [address] CBC W/Diff, Automatedon 07-0 5-2025 Absolute Lymph 1.57 X10 3/uL Normal 0.83-4.51 [facility] Comment on above: Performed By: #### L 300.3900, L100.0100, M200.1000, L500.4050, L503.7505, L300.4310, L503.6005 ####[facility] [address] [place], [address] Absolute Neut 13.7 X10 3/uL High 2.0-7.7 [facility] Comment on above: Performed By: #### L 300.3900, L100.0100, M200.1000, L500.4050, L503.7505, L300.4310, L503.6005 ####[facility] [address] [place], [address] Basophils/100 WBC (Bld) 0.5 % Normal 0-1 [facility] Comment on above: Performed By: #### L 300.3900, L100.0100, M200.1000, L500.4050, L503.7505, L300.4310, L503.6005 ####[facility] [address] [place], [address] Eosinophils/100 WBC (Bld) 0.8 % Normal 0-5 [facility] Comment on above: Performed By: #### L 300.3900, L100.0100, M200.1000, L500.4050, L503.7505, L300.4310, L503.6005 ####[facility] [address] [place], [address] Erythrocyte distribution width (RBC) [Ratio] 14.2 % Normal 11.6-14.6 [facility] Comment on above: Performed By: #### L 300.3900, L100.0100, M200.1000, L500.4050, L503.7505, L300.4310, L503.6005 ####[facility] [address] [place], [address] Hematocrit (Bld) [Volume fraction] 30.3 % Low 40-54 [facility] Comment on above: Performed By: #### L 300.3900, L100.0100, M200.1000, L500.4050, L503.7505, L300.4310, L503.6005 ####[facility] [address] [place], [address] Hemoglobin (Bld) [Mass/Vol] 9.1 g/dL Low 13.0-16.5 [facility] Comment on above: Performed By: #### L 300.3900, L100.0100, M200.1000, L500.4050, L503.7505, L300.4310, L503.6005 ####[facility] [address] [place], [address] IG% 0.400 Normal 0.0-0.9 [facility] Comment on above: Result Comment: IG% - Immature Granulocytes (promyelocytes, myelocytes andmetamyelocytes) > 1% indicates that a LEFT SHIFT is Present. Performed By: #### L 300.3900, L100.0100, M200.1000, L500.4050, L503.7505, L300.4310, L503.6005 ####[facility] [address] [place], [address] Lymphocytes/100 WBC (Bld) 9.3 % Low 19-41 [facility] Comment on above: Performed By: #### L 300.3900, L100.0100, M200.1000, L500.4050, L503.7505, L300.4310, L503.6005 ####[facility] [address] [place], [address] MCH (RBC) [Entitic mass] 28.9 pg Normal 27.0-32.0 [facility] Comment on above: Performed By: #### L 300.3900, L100.0100, M200.1000, L500.4050, L503.7505, L300.4310, L503.6005 ####[facility] [address] [place], [address] MCHC (RBC) [Mass/Vol] 30.0 g/dL Low 32-36 [facility] Comment on above: Performed By: #### L 300.3900, L100.0100, M200.1000, L500.4050, L503.7505, L300.4310, L503.6005 ####[facility] [address] [place], [address] MCV (RBC) [Entitic vol] 96.2 fL High 80-94 [facility] Comment on above: Performed By: #### L 300.3900, L100.0100, M200.1000, L500.4050, L503.7505, L300.4310, L503.6005 ####[facility] [address] [place], [address] Monocytes/100 WBC (Bld) 7.2 % Normal 0-10 [facility] Comment on above: Performed By: #### L 300.3900, L100.0100, M200.1000, L500.4050, L503.7505, L300.4310, L503.6005 ####[facility] [address] [place], [address] Neutrophils/100 WBC (Bld) 81.8 % High 47-70 [facility] Comment on above: Performed By: #### L 300.3900, L100.0100, M200.1000, L500.4050, L503.7505, L300.4310, L503.6005 ####[facility] [address] [place], [address] Nucleated RBC (Bld) [#/Vol] 0 10*3/uL Normal 0-5 [facility] Comment on above: Performed By: #### L 300.3900, L100.0100, M200.1000, L500.4050, L503.7505, L300.4310, L503.6005 ####[facility] [address] [place], [address] Platelet mean volume (Bld) [Entitic vol] 10.8 fL Normal 6.2-12.0 [facility] Comment on above: Performed By: #### L 300.3900, L100.0100, M200.1000, L500.4050, L503.7505, L300.4310, L503.6005 ####[facility] [address] [place], [address] Platelets (Bld) [#/Vol] 252 10*3/uL Normal 150-450 [facility] Comment on above: Performed By: #### L 300.3900, L100.0100, M200.1000, L500.4050, L503.7505, L300.4310, L503.6005 ####[facility] [address] [place], [address] RBC (Bld) [#/Vol] 3.15 10*6/uL Low 4.6-6.2 [facility] Comment on above: Performed By: #### L 300.3900, L100.0100, M200.1000, L500.4050, L503.7505, L300.4310, L503.6005 ####[facility] [address] [place], [address] RDW SD 49.4 fl High 35.1-43.9 [facility] Comment on above: Performed By: #### L 300.3900, L100.0100, M200.1000, L500.4050, L503.7505, L300.4310, L503.6005 ####[facility] [address] [place], [address] WBC (Bld) [#/Vol] 16.8 10*3/uL High 4.4-11.0 [facility] Comment on above: Performed By: #### L 300.3900, L100.0100, M200.1000, L500.4050, L503.7505, L300.4310, L503.6005 ####[facility] [address] [place], [address] Carbon dioxide, total [Moles /volume] in Central venous bloodOrdered By: Curtis Amor on 05-05-2025 CO2 [Moles/Vol] 25.2 mmol/L 21.0-32.0 [facility] Chest 1 View (Portable)on Chest 1 View (Portable) Normal [facility] Chloride assayOrdered By: Zoran Amor on 05-05-2025 Chloride [Moles/Vol] 101 mmol/L 98-108 [facility] Comprehensive Metabolic Prof ilon 05-05-2025 Albumin [Mass/Vol] 3.9 g/dL Normal 3.4-4.8 [facility] Comment on above: Performed By: #### L 300.3900, L100.0100, M200.1000, L500.4050, L503.7505, L300.4310, L503.6005 ####[facility] [address] [place], [address] Albumin/Globulin [Mass ratio] 1.5 {ratio} Normal 0.9-2.4 [facility] Comment on above: Performed By: #### L 300.3900, L100.0100, M200.1000, L500.4050, L503.7505, L300.4310, L503.6005 ####[facility] [address] [place], [address] ALK PHOS 93 U/L Normal 40-129 [facility] Comment on above: Performed By: #### L 300.3900, L100.0100, M200.1000, L500.4050, L503.7505, L300.4310, L503.6005 ####[facility] [address] [place], [address] ALT [Catalytic activity/Vol] 44 U/L Normal <=46 [facility] Comment on above: Performed By: #### L 300.3900, L100.0100, M200.1000, L500.4050, L503.7505, L300.4310, L503.6005 ####[facility] [address] [place], [address] AST [Catalytic activity/Vol] 43 U/L High <=37 [facility] Comment on above: Performed By: #### L 300.3900, L100.0100, M200.1000, L500.4050, L503.7505, L300.4310, L503.6005 ####[facility] [address] [place], [address] Bilirubin [Mass/Vol] 0.49 mg/dL Normal 0.00-1.30 [facility] Comment on above: Performed By: #### L 300.3900, L100.0100, M200.1000, L500.4050, L503.7505, L300.4310, L503.6005 ####[facility] [address] [place], [address] BUN/CRE 26.2 RATIO High 10-20 [facility] Comment on above: Performed By: #### L 300.3900, L100.0100, M200.1000, L500.4050, L503.7505, L300.4310, L503.6005 ####[facility] [address] [place], [address] Calcium [Mass/Vol] 8.5 mg/dL Normal 7.6-11.0 [facility] Comment on above: Performed By: #### L 300.3900, L100.0100, M200.1000, L500.4050, L503.7505, L300.4310, L503.6005 ####[facility] [address] [place], [address] Chloride [Moles/Vol] 101 mmol/L Normal 98-108 [facility] Comment on above: Performed By: #### L 300.3900, L100.0100, M200.1000, L500.4050, L503.7505, L300.4310, L503.6005 ####[facility] [address] [place], [address] CO2 [Moles/Vol] 25.2 mmol/L Normal 21.0-32.0 [facility] Comment on above: Performed By: #### L 300.3900, L100.0100, M200.1000, L500.4050, L503.7505, L300.4310, L503.6005 ####[facility] [address] [place], [address] Creatinine [Mass/Vol] 2.72 mg/dL High 0.70-1.20 [facility] Comment on above: Performed By: #### L 300.3900, L100.0100, M200.1000, L500.4050, L503.7505, L300.4310, L503.6005 ####[facility] [address] [place], [address] ECRCL 19.22 ml/min Low 50-250 [facility] Comment on above: Performed By: #### L 300.3900, L100.0100, M200.1000, L500.4050, L503.7505, L300.4310, L503.6005 ####[facility] [address] [place], [address] GAP 16 High 5-15 [facility] Comment on above: Performed By: #### L 300.3900, L100.0100, M200.1000, L500.4050, L503.7505, L300.4310, L503.6005 ####[facility] [address] [place], [address] GFR/1.73 sq M.predicted among non-blacks MDRD (S/P/Bld) [Vol rate/Area] 23 mL/min/{1.73_m2} Low >60 [facility] Comment on above: Result Comment: mL/m in/1.73m2 CKD-EPI Creatinine Equation (2020) Performed By: #### L 300.3900, L100.0100, M200.1000, L500.4050, L503.7505, L300.4310, L503.6005 ####[facility] [address] [place], [address] Globulin (S) [Mass/Vol] 2.5 g/dL Normal 2.2-4.2 [facility] Comment on above: Performed By: #### L 300.3900, L100.0100, M200.1000, L500.4050, L503.7505, L300.4310, L503.6005 ####[facility] [address] [place], [address] Glucose [Mass/Vol] 242 mg/dL High 70-99 [facility] Comment on above: Performed By: #### L 300.3900, L100.0100, M200.1000, L500.4050, L503.7505, L300.4310, L503.6005 ####[facility] [address] [place], [address] Potassium [Moles/Vol] 4.5 mmol/L Normal 3.3-5.1 [facility] Comment on above: Performed By: #### L 300.3900, L100.0100, M200.1000, L500.4050, L503.7505, L300.4310, L503.6005 ####[facility] [address] [place], [address] Sodium [Moles/Vol] 142 mmol/L Normal 133-145 [facility] Comment on above: Performed By: #### L 300.3900, L100.0100, M200.1000, L500.4050, L503.7505, L300.4310, L503.6005 ####[facility] [address] [place], [address] T PROT 6.4 g/dL Normal 5.9-8.4 [facility] Comment on above: Performed By: #### L 300.3900, L100.0100, M200.1000, L500.4050, L503.7505, L300.4310, L503.6005 ####[facility] [address] [place], [address] Urea nitrogen [Mass/Vol] 71 mg/dL High 4-19 [facility] Comment on above: Performed By: #### L 300.3900, L100.0100, M200.1000, L500.4050, L503.7505, L300.4310, L503.6005 ####[facility] [address] [place], [address] Emergency Department Summary on 05-05-2025 Emergency Department Summary Normal [facility] Eosinophil percentageOrdered By: Curtis Amor on 05-05-2025 Eosinophils/100 WBC (Bld) 0.8 % 0-5 [facility] Erythrocyte distribution wid th ratioOrdered By: Curtis Amor on 05-05-2025 Erythrocyte distribution width (RBC) [Ratio] 14.2 % 11.6-14.6 [facility] Erythrocyte distribution wid th standard deviationOrdered By: Curtis Amor on 05-05-2025 Erythrocyte distribution width (RBC) [Ratio] 49.4 fl High 35.1-43.9 [facility] Glomerular filtration rate ( GFR) estimation/1.73 sq m using serum, plasma, or whole bOrdered By: Curtis Amor on 05-05-2025 GFR/1.73 sq M.predicted among non-blacks MDRD (S/P/Bld) [Vol rate/Area] 23 mL/min/{1.73_m2} Low >60 [facility] H AND P Exam - Hospitaliston 05-05-2025 H&P Exam - Hospitalist Normal [facility] Hematocrit Auto (Bld) [Volum e fraction]Ordered By: Curtis Amor on 05-05-2025 Hematocrit (Bld) [Volume fraction] 30.3 % Low 40-54 [facility] Hemoglobin measurementOrdere d By: Curtis Amor on 05-05-2025 Hemoglobin (Bld) [Mass/Vol] 9.1 g/dL Low 13.0-16.5 [facility] Immature granulocytes/100 WB C Auto (Bld)Ordered By: Curtis Amor on 05-05-2025 Immature granulocytes/100 WBC (Bld) 0.400 % 0.0-0.9 [facility] Ketones Test strip Ql (U)Ord ered By: Curtis Amor on 05-05-2025 Ketones Ql (U) Negative Negative [facility] L499.0042on 05-05-2025 Trop T High Sen 113 ng/L Invalid Interpretation Code <=22 [facility] Comment on above: Result Comment: Crit ical Result(s) Called at: 2243 by: JEANNIE BURNHAM??Results read back by same. Performed By: #### L 499.0042 ####[facility] [address] [place], [place], [address] L501.4021on 05-05-2025 Trop T High Sen 115 ng/L Invalid Interpretation Code <=22 [facility] Comment on above: Result Comment: Crit ical Result(s) Called at: 2043 by:??JEANNIE ALBERT Results read back by same. Performed By: #### L 067.4020 ####[facility] [address] [place], [address] L503.7505on 05-05-2025 Natriuretic peptide B (Bld) [Mass/Vol] 23399 pg/mL High <=1800 [facility] Comment on above: Result Comment: Hear t Failure Unlikely: < 300 pg/mLHeart Failure Likely< 50 Years: > 450 pg/mL50-75 Years: > 900 pg/mL>75 Years: > 1800 pg/mL Performed By: #### L 300.3900, L100.0100, M200.1000, L500.4050, L503.7505, L300.4310, L503.6005 ####[facility] [address] [place], [address] Lactic Acidon 05-05-2025 Lactate [Moles/Vol] 1.2 mmol/L Normal 0.0-2.0 [facility] Comment on above: Order Comment: Y Performed By: #### L 501.5200, L503.6005 ####[facility] [address] [place], [place], [id number] Lactate [Moles/Vol] 2.8 mmol/L Invalid Interpretation Code 0.0-2.0 [facility] Comment on above: Order Comment: Y Result Comment: Crit ical Result(s) Called at: 2043 by:??JEANNIE ALBERT Results read back by same. Performed By: #### L 300.3900, L100.0100, M200.1000, L500.4050, L503.7505, L300.4310, L503.6005 ####[facility] [address] [place], [place], [id number] MCV (mean corpuscular volume ) determinationOrdered By: Curtsi Amor on 05-05-2025 MCV (RBC) [Entitic vol] 96.2 fL High 80-94 [facility] Magnesiumon 05-05-2025 Magnesium [Mass/Vol] 2.3 mg/dL High 1.5-2.2 [facility] Comment on above: Performed By: #### L 501.5200, L503.6005 ####[facility] [address] [place], [address] Mean corpuscular hemoglobin (MCH) determinationOrdered By: Curtis Amor on 05-05-2025 MCH (RBC) [Entitic mass] 28.9 pg 27.0-32.0 [facility] Monocyte percentageOrdered B y: Curtis Amor on 05-05-2025 Monocytes/100 WBC (Bld) 7.2 % 0-10 [facility] Mucus LM Ql (Urine sed)Order ed By: Curtis Amor on 05-05-2025 Mucus Ql (Urine sed) 0 SEEN /hpf [facility] Natriuretic peptide.B prohor katja N-Terminal [Mass/volume] in Serum or PlasmaOrdered By: Curtis Amor on 05-05-2025 Natriuretic peptide.B prohormone N-Terminal [Mass/Vol] 28538 pg/mL High <1800 [facility] Neutrophil percentageOrdered By: Curtis Amor on 05-05-2025 Neutrophils/100 WBC (Bld) 81.8 % High 47-70 [facility] Nitrite Test strip Ql (U)Ord ered By: Curtis Amor on 05-05-2025 Nitrite Ql (U) Negative Negative [facility] No Panel InformationOrdered By: Nancy Henson on 05-05-2025 14 [facility] No Panel InformationOrdered By: Curtis Amor on 05-05-2025 43 U/L High <38 [facility] Partial Thromboplast Timeon 05-05-2025 aPTT Coag (Bld) [Time] 29.3 s Normal 24.1-36.2 [facility] Comment on above: Performed By: #### L 300.3900, L100.0100, M200.1000, L500.4050, L503.7505, L300.4310, L503.6005 ####[facility] [address] [place], [address] Platelet countOrdered By: Zoran Amor on 05-05-2025 Platelets (Bld) [#/Vol] 252 10*3/uL 150-450 [facility] Potassium measurement (mass/ volume)Ordered By: Curtis Amor on 05-05-2025 Potassium (Unsp spec) [Mass/Vol] 4.5 mmol/L 3.3-5.1 [facility] Protein Test strip Ql (U)Ord ered By: Curtis Amor on 05-05-2025 Protein Ql (U) 30 mg/dl High Negative [facility] Prothrombin Time w/INRon INR Coag (PPP) [Relative time] 1.0 {INR} Normal [facility] Comment on above: Performed By: #### L 300.3900, L100.0100, M200.1000, L500.4050, L503.7505, L300.4310, L503.6005 ####[facility] [address] [place], [place], [id number] PT Coag (PPP) [Time] 13.1 s Normal 11.7-14.9 [facility] Comment on above: Performed By: #### L 300.3900, L100.0100, M200.1000, L500.4050, L503.7505, L300.4310, L503.6005 ####[facility] [address] [place], [place], [id number] Prothrombin timeOrdered By: Curtis Amor on 05-05-2025 PT Coag (PPP) [Time] 13.1 s 11.7-14.9 [facility] RBC Auto (Bld) [#/Vol]Ordere d By: Curtis Amor on 05-05-2025 RBC (Bld) [#/Vol] 3.15 10*6/uL Low 4.6-6.2 [facility] Respiratory pathogens detect ion panel by molecular detection methodOrdered By: Nancy Henson on 05-05-2025 Respiratory pathogens DNA and RNA panel ALICE+probe (Resp) [facility] [id number] By: Nancy Henson on 05-05-2025 SARS-CoV-2 (COVID-19) RNA ALICE+probe Ql (Unsp spec) [facility] Serum creatinine measurement (mass/volume)Ordered By: Curtis Amor on 05-05-2025 Creatinine [Mass/Vol] 2.72 mg/dL High 0.70-1.20 [facility] Serum globulin measurementOr dered By: Curtis Amor on 05-05-2025 Globulin (S) [Mass/Vol] 2.5 g/dL 2.2-4.2 [facility] Serum glucose measurement (m ass/volume)Ordered By: Curtis Amor on 05-05-2025 Glucose [Mass/Vol] 242 mg/dL High 70-99 [facility] Serum or plasma alanine clayton otransferase (ALT) measurementOrdered By: Curtis Amor on 05-05-2025 ALT [Catalytic activity/Vol] 44 U/L <47 [facility] Serum or plasma albumin nikkie urement (mass/volume)Ordered By: Curtis Amor on 05-05-2025 Albumin [Mass/Vol] 3.9 g/dL 3.4-4.8 [facility] Serum or plasma albumin/glob ulin mass ratioOrdered By: Curtis Amor on 05-05-2025 Albumin/Globulin [Mass ratio] 1.5 {ratio} 0.9-2.4 [facility] Serum or plasma alkaline dwight sphatase measurementOrdered By: Curtis Amor on 05-05-2025 ALP [Catalytic activity/Vol] 93 U/L 40-129 [facility] Serum or plasma calcium nikkie urement (mass/volume)Ordered By: Curtis Amor on 05-05-2025 Calcium [Mass/Vol] 8.5 mg/dL 7.6-11.0 [facility] Serum or plasma urea nitroge n measurement (mass/volume)Ordered By: Curtis Amor on 05-05-2025 Urea nitrogen [Mass/Vol] 71 mg/dL High 4-19 [facility] Sodium levelOrdered By: Amina Amor on 05-05-2025 Sodium [Moles/Vol] 142 mmol/L 133-145 [facility] Squamous epithelial cells de tection in urine sediment by light microscopyOrdered By: Curtis Amor on 05-05-2025 Epithelial cells.squamous LM Ql (Urine sed) 0 SEEN /hpf 0-5 [facility] Total proteinOrdered By: Shaun Amor on 05-05-2025 Protein [Mass/Vol] 6.4 g/dL 5.9-8.4 [facility] Troponin T.cardiac [Mass/vol ume] in Serum or Plasma by High sensitivity methodOrdered By: Curtis Amor on 05-05-2025 Troponin T.cardiac High sensitivity method [Mass/Vol] 141 ng/L High <22 [facility] Troponin T.cardiac High sensitivity method [Mass/Vol] 113 ng/L High <22 [facility] Troponin T.cardiac High sensitivity method [Mass/Vol] 115 ng/L High <22 [facility] Urinalysis, Completeon 05-05 BACTERIA RARE Normal None Seen [facility] Comment on above: Order Comment: [facility] CTOR TO SPECIFY Performed By: #### M 100.2200, L400.0001 ####[facility] [address] [place], [address] WBC 0-5 SEEN Normal 0-5 [facility] Comment on above: Order Comment: [facility] CTOR TO SPECIFY Performed By: #### M 100.2200, L400.0001 ####[facility] [address] [place], [address] EPI,SQUAMOUS 0 SEEN Normal 0-5 [facility] Comment on above: Order Comment: [facility] CTOR TO SPECIFY Performed By: #### M 100.2200, L400.0001 ####[facility] [address] [place], [address] Mucus Ql (Urine sed) 0 SEEN Normal [facility] Comment on above: Order Comment: [facility] CTOR TO SPECIFY Performed By: #### M 100.2200, L400.0001 ####[facility] [address] [place], [address] RBC 0 SEEN Normal 0-5 [facility] Comment on above: Order Comment: [facility] CTOR TO SPECIFY Performed By: #### M 100.2200, L400.0001 ####[facility] [address] [place], [address] Urine Legionella pneumophila antigen detectionOrdered By: Nancy Henson on 05-05-2025 L. pneumophila Ag Ql (U) [facility] Urine clarityOrdered By: Shaun Amor on 05-05-2025 Clarity (U) Clear Clear [facility] Urine color determinationOrd ered By: Curtis Amor on 05-05-2025 Color (U) Yellow Yellow [facility] Urine cultureOrdered By: Shaun Amor on 05-05-2025 Bacteria identified Cx Nom (U) Positive Abnormal [facility] Urine glucose detectionOrder ed By: Curtis Amor on 05-05-2025 Glucose Ql (U) Normal mg/dl Normal [facility] Urine leukocyte esterase det ection by dipstickOrdered By: Curtis Amor on 05-05-2025 Leukocyte esterase Test strip Ql (U) 25 /ul High Negative [facility] Urine pHOrdered By: Curtis matt on 05-05-2025 pH (U) 6.0 [pH] 5.0 - 8.0 [facility] Urine sediment bacteria coun t by microscopy (number/high power field)Ordered By: Curtis Amor on 05-05-2025 Bacteria LM.HPF (Urine sed) [#/Area] RARE /hpf None Seen [facility] Urine specific gravity measu rementOrdered By: Curtis Amor on 05-05-2025 Specific gravity (U) [Rel density] 1.015 1.002-1.030 [facility] Urine urobilinogen measureme ntOrdered By: Curtis Amor on 05-05-2025 Urobilinogen Ql (U) Normal mg/dl Normal [facility] White blood cell (WBC) count Ordered By: Curtis Amor on 05-05-2025 WBC (Bld) [#/Vol] 16.8 10*3/uL High 4.4-11.0 [facility] White blood cell countOrdere d By: Curtis Amor on 05-05-2025 White blood cell count 0-5 SEEN /hpf 0-5 [facility] BASIC METABOLIC PANEL WITH A NION GAPon 04-28-2025 Calcium [Mass/Vol] 8.2 mg/dL Low 8.6-10.3 [facility] Comment on above: Performed By: #### 9 0473 #### [facility] of [address], [address] [place] [address] Cad Drafter: Jadon Velez MD Chloride [Moles/Vol] 99 mmol/L Normal 98-110 [facility] Comment on above: Performed By: #### 9 2498 #### [facility] of [address], [address] [place] [address] Cad Drafter: Jadon Velez MD CO2 [Moles/Vol] 30 mmol/L Normal 20-32 [facility] Comment on above: Performed By: #### 9 2498 #### [facility] of [address], [address] [place] [address] Cad Drafter: Jadon Velez MD Creatinine [Mass/Vol] 2.37 mg/dL High 0.70-1.[address] [facility] Comment on above: Performed By: #### 9 2498 #### [facility] of [address], [address] [place] [address] Cad Drafter: Jadon Velez MD ELECTROLYTE BALANCE 10 mmol/L (calc) Normal 7-17 [facility] Comment on above: Performed By: #### 9 2498 #### [facility] of [place] [address] Cad Drafter: Jadon Velez MD GFR/1.73 sq M.predicted among non-blacks MDRD (S/P/Bld) [Vol rate/Area] 27 mL/min/{1.73_m2} Low > OR = 60 [facility] Comment on above: Performed By: #### 9 2498 #### [facility] of [address], [address] [place] [address] Cad Drafter: Jadon Velez MD Glucose [Mass/Vol] 40 mg/dL Low 65-99 [facility] Comment on above: Result Comment: Veri fied by repeat analysis. Fasting reference interval Performed By: #### 9 2498 #### [facility] of [place] [address] Cad Drafter: Jadon Velez MD Potassium [Moles/Vol] 4.0 mmol/L Normal 3.5-5.3 [facility] Comment on above: Performed By: #### 9 2498 #### [facility] of [address], [address] [place] [address] Cad Drafter: Jadon Velez MD Sodium [Moles/Vol] 139 mmol/L Normal 135-146 [facility] Comment on above: Performed By: #### 9 2498 #### [facility] [address], [address] [place] [address] Cad Drafter: Jadon Velez MD Urea nitrogen [Mass/Vol] 82 mg/dL High - [facility] Comment on above: Performed By: #### 9 2498 #### [facility] [address], [address] [place] [address] Cad Drafter: Jadon Velez MD Urea nitrogen/Creatinine [Mass ratio] 35 mg/mg High - [facility] Comment on above: Performed By: #### 9 2498 #### [facility] [place] [address] Cad Drafter: Jadon Velez MD Basic Metabolic Profile (BMP )on 04-23-2025 BUN Normal -19 [facility] Comment on above: Result Comment: Canc elled via OM: Order cancelled - Patient discharged Performed By: #### L 500.2500, L100.0100 ####[facility] [address] [place], [address] BUN/CRE Normal 10-20 [facility] Comment on above: Result Comment: Canc elled via OM: Order cancelled - Patient discharged Performed By: #### L 500.2500, L100.0100 ####[facility] [address] [place], [address] Calcium Normal 7.6-11.0 [facility] Comment on above: Result Comment: Canc elled via OM: Order cancelled - Patient discharged Performed By: #### L 500.2500, L100.0100 ####[facility] [address] [place], [address] CL Normal 98-108 [facility] Comment on above: Result Comment: Canc elled via OM: Order cancelled - Patient discharged Performed By: #### L 500.2500, L100.0100 ####[facility] [address] [place], [address] CO2 Normal 21.0-32.0 [facility] Comment on above: Result Comment: Canc elled via OM: Order cancelled - Patient discharged Performed By: #### L 500.2500, L100.0100 ####[facility] [address] [place], [address] CREAT,SERUM Normal 0.70-1.20 [facility] Comment on above: Result Comment: Canc elled via OM: Order cancelled - Patient discharged Performed By: #### L 500.2500, L100.0100 ####[facility] [address] [place], [address] eGFR Normal >60 [facility] Comment on above: Result Comment: Canc elled via OM: Order cancelled - Patient discharged Performed By: #### L 500.2500, L100.0100 ####[facility] [address] [place], [address] GAP Normal 5-15 [facility] Comment on above: Result Comment: Canc elled via OM: Order cancelled - Patient discharged Performed By: #### L 500.2500, L100.0100 ####[facility] [address] [place], [address] GLU Normal 70-99 [facility] Comment on above: Result Comment: Canc elled via OM: Order cancelled - Patient discharged Performed By: #### L 500.2500, L100.0100 ####[facility] [address] [place], [address] Potassium Normal 3.3-5.1 [facility] Comment on above: Result Comment: Canc elled via OM: Order cancelled - Patient discharged Performed By: #### L 500.2500, L100.0100 ####[facility] [address] [place], [address] Basic Metabolic Profile (BMP) Normal 133-145 [facility] Comment on above: Result Comment: Canc elled via OM: Order cancelled - Patient discharged Performed By: #### L 500.2500, L100.0100 ####[facility] [address] [place], [address] CBC W/Diff, Automatedon 06-2 Absolute Neut Normal 2.0-7.7 [facility] Comment on above: Result Comment: Canc elled via OM: Order cancelled - Patient discharged Performed By: #### L 500.2500, L100.0100 ####[facility] [address] [place], [address] HCT Normal 40-54 [facility] Comment on above: Result Comment: Canc elled via OM: Order cancelled - Patient discharged Performed By: #### L 500.2500, L100.0100 ####[facility] [address] [place], [address] HGB Normal 13.0-16.5 [facility] Comment on above: Result Comment: Canc elled via OM: Order cancelled - Patient discharged Performed By: #### L 500.2500, L100.0100 ####[facility] [address] [place], [address] MCH Normal 27.0-32.0 [facility] Comment on above: Result Comment: Canc elled via OM: Order cancelled - Patient discharged Performed By: #### L 500.2500, L100.0100 ####[facility] [address] [place], [address] MCHC Normal 32-36 [facility] Comment on above: Result Comment: Canc elled via OM: Order cancelled - Patient discharged Performed By: #### L 500.2500, L100.0100 ####[facility] [address] [place], [address] MCV Normal 80-94 [facility] Comment on above: Result Comment: Canc elled via OM: Order cancelled - Patient discharged Performed By: #### L 500.2500, L100.0100 ####[facility] [address] [place], [address] NEUT% Normal 47-70 [facility] Comment on above: Result Comment: Canc elled via OM: Order cancelled - Patient discharged Performed By: #### L 500.2500, L100.0100 ####[facility] [address] [place], [address] PLT Normal 150-450 [facility] Comment on above: Result Comment: Canc elled via OM: Order cancelled - Patient discharged Performed By: #### L 500.2500, L100.0100 ####[facility] [address] [place], [address] RBC Normal 4.6-6.2 [facility] Comment on above: Result Comment: Canc elled via OM: Order cancelled - Patient discharged Performed By: #### L 500.2500, L100.0100 ####[facility] [address] [place], [address] RDW CV Normal 11.6-14.6 [facility] Comment on above: Result Comment: Canc elled via OM: Order cancelled - Patient discharged Performed By: #### L 500.2500, L100.0100 ####[facility] [address] [place], [address] RDW SD Normal 35.1-43.9 [facility] Comment on above: Result Comment: Canc elled via OM: Order cancelled - Patient discharged Performed By: #### L 500.2500, L100.0100 ####[facility] [address] [place], [address] WBC Normal 4.4-11.0 [facility] Comment on above: Result Comment: Canc elled via OM: Order cancelled - Patient discharged Performed By: #### L 500.2500, L100.0100 ####[facility] [address] [place], [address] Anion gap in Serum or Plasma Ordered By: Bipin Gonzalez on 04-22-2025 Anion gap [Moles/Vol] 14 mmol/L - [facility] BUN/creatinine ratioOrdered By: Bipin Gonzalez on 04-22-2025 Urea nitrogen/Creatinine [Mass ratio] 30.0 mg/mg High 10- [facility] Basic Metabolic Profile (BMP )on 04-22-2025 BUN/CRE 30.0 RATIO High - [facility] Comment on above: Performed By: #### L 500.2500, L501.5200 ####[facility] [address] [place], [address] Calcium [Mass/Vol] 8.6 mg/dL Normal 7.6-11.0 [facility] Comment on above: Performed By: #### L 500.2500, L501.5200 ####[facility] [address] [place], [address] Chloride [Moles/Vol] 100 mmol/L Normal 98-108 [facility] Comment on above: Performed By: #### L 500.2500, L501.5200 ####[facility] [address] [place], [address] CO2 [Moles/Vol] 23.0 mmol/L Normal 21.0-32.0 [facility] Comment on above: Performed By: #### L 500.2500, L501.5200 ####[facility] [address] [place], [address] Creatinine [Mass/Vol] 2.97 mg/dL High 0.70-1.20 [facility] Comment on above: Performed By: #### L 500.2500, L501.5200 ####[facility] [address] [place], [address] ECRCL 17.60 ml/min Low 50-250 [facility] Comment on above: Performed By: #### L 500.2500, L501.5200 ####[facility] [address] [place], [address] GAP 14 Normal 5-15 [facility] Comment on above: Performed By: #### L 500.2500, L501.5200 ####[facility] [address] [place], [address] GFR/1.73 sq M.predicted among non-blacks MDRD (S/P/Bld) [Vol rate/Area] 20 mL/min/{1.73_m2} Low >60 [facility] Comment on above: Result Comment: mL/m in/1.73m2 CKD-EPI Creatinine Equation (2020) Performed By: #### L 500.2500, L501.5200 ####[facility] [address] [place], [address] Glucose [Mass/Vol] 240 mg/dL High 70-99 [facility] Comment on above: Performed By: #### L 500.2500, L501.5200 ####[facility] [address] [place], [address] Potassium [Moles/Vol] 4.2 mmol/L Normal 3.3-5.1 [facility] Comment on above: Performed By: #### L 500.2500, L501.5200 ####[facility] [address] [place], [address] Sodium [Moles/Vol] 137 mmol/L Normal 133-145 [facility] Comment on above: Performed By: #### L 500.2500, L501.5200 ####[facility] [address] [place], [address] Urea nitrogen [Mass/Vol] 89 mg/dL High 4-19 [facility] Comment on above: Performed By: #### L 500.2500, L501.5200 ####[facility] [address] [place], [address] Bedside Glucoseon 04-22-2025 FINGERSTICK GLU 246 mg/dL High 74-106 [facility] Comment on above: Result Comment: ADITI GEMENT OF PATIENT CARE PER NURSING PROTOCOL Performed By: #### L 501.080 ####[facility] [address] [place], [address] FINGERSTICK GLU 202 mg/dL High 74-106 [facility] Comment on above: Result Comment: ADITI GEMENT OF PATIENT CARE PER NURSING PROTOCOL Performed By: #### L 501.080 ####[facility] [address] [place], [address] Carbon dioxide, total [Moles /volume] in Central venous bloodOrdered By: Bipin Gonzalez on 04-22-2025 CO2 [Moles/Vol] 23.0 mmol/L 21.0-32.0 [facility] Chloride assayOrdered By: Song Gonzalez on 04-22-2025 Chloride [Moles/Vol] 100 mmol/L 98-108 [facility] Glomerular filtration rate ( GFR) estimation/1.73 sq m using serum, plasma, or whole bOrdered By: Bipin Gonzalez on 04-22-2025 GFR/1.73 sq M.predicted among non-blacks MDRD (S/P/Bld) [Vol rate/Area] 20 mL/min/{1.73_m2} Low >60 [facility] Glucose measurement at bedsi deOrdered By: Malika Fonseca on 04-22-2025 Glucose [Mass/Vol] 246 mg/dL High 74-106 [facility] Glucose [Mass/Vol] 202 mg/dL High 74-106 [facility] Magnesiumon 04-22-2025 Magnesium [Mass/Vol] 2.7 mg/dL High 1.5-2.2 [facility] Comment on above: Performed By: #### L 500.2500, L501.5200 ####[facility] [address] [place], [address] Magnesium measurement (mass/ volume)Ordered By: Bipin Gonzalez on 04-22-2025 Magnesium (Unsp spec) [Mass/Vol] 2.7 mg/dL High 1.5-2.2 [facility] Potassium measurement (mass/ volume)Ordered By: Bipin Gonzalez on 04-22-2025 Potassium (Unsp spec) [Mass/Vol] 4.2 mmol/L 3.3-5.1 [facility] Serum creatinine measurement (mass/volume)Ordered By: Bipin Gonzalez on 04-22-2025 Creatinine [Mass/Vol] 2.97 mg/dL High 0.70-1.20 [facility] Serum glucose measurement (m ass/volume)Ordered By: Bipin Gonzalez on 04-22-2025 Glucose [Mass/Vol] 240 mg/dL High 70-99 [facility] Serum or plasma calcium nikkie urement (mass/volume)Ordered By: Bipin Gonzalez on 04-22-2025 Calcium [Mass/Vol] 8.6 mg/dL 7.6-11.0 [facility] Serum or plasma urea nitroge n measurement (mass/volume)Ordered By: Bipin Gonzalez on 04-22-2025 Urea nitrogen [Mass/Vol] 89 mg/dL High 4-19 [facility] Sodium levelOrdered By: Viet Gonzalez on 04-22-2025 Sodium [Moles/Vol] 137 mmol/L 133-145 [facility] Basic Metabolic Profile (BMP )on 04-21-2025 BUN/CRE 27.1 RATIO High 10-20 [facility] Comment on above: Performed By: #### L 500.2500 ####[facility] [address] [place], [address] Calcium [Mass/Vol] 8.9 mg/dL Normal 7.6-11.0 [facility] Comment on above: Performed By: #### L 500.2500 ####[facility] [address] [place], [address] Chloride [Moles/Vol] 102 mmol/L Normal 98-108 [facility] Comment on above: Performed By: #### L 500.2500 ####[facility] [address] [place], [address] CO2 [Moles/Vol] 22.4 mmol/L Normal 21.0-32.0 [facility] Comment on above: Performed By: #### L 500.2500 ####[facility] [address] [place], [address] Creatinine [Mass/Vol] 2.94 mg/dL High 0.70-1.20 [facility] Comment on above: Performed By: #### L 500.2500 ####[facility] [address] [place], [address] ECRCL 17.78 ml/min Low 50-250 [facility] Comment on above: Performed By: #### L 500.2500 ####[facility] [address] [place], [address] GAP 14 Normal 5-15 [facility] Comment on above: Performed By: #### L 500.2500 ####[facility] [address] [place], [address] GFR/1.73 sq M.predicted among non-blacks MDRD (S/P/Bld) [Vol rate/Area] 21 mL/min/{1.73_m2} Low >60 [facility] Comment on above: Result Comment: mL/m in/1.73m2 CKD-EPI Creatinine Equation (2020) Performed By: #### L 500.2500 ####[facility] [address] [place], [address] Glucose [Mass/Vol] 136 mg/dL High 70-99 [facility] Comment on above: Performed By: #### L 500.2500 ####[facility] [address] [place], [address] Potassium [Moles/Vol] 4.5 mmol/L Normal 3.3-5.1 [facility] Comment on above: Performed By: #### L 500.2500 ####[facility] [address] [place], [address] Sodium [Moles/Vol] 138 mmol/L Normal 133-145 [facility] Comment on above: Performed By: #### L 500.2500 ####[facility] [address] [place], [address] Urea nitrogen [Mass/Vol] 80 mg/dL High 4-19 [facility] Comment on above: Performed By: #### L 500.2500 ####[facility] [address] [place], [address] Bedside Glucoseon 04-21-2025 FINGERSTICK GLU 341 mg/dL High 74-106 [facility] Comment on above: Result Comment: ADITI GEMENT OF PATIENT CARE PER NURSING PROTOCOL Performed By: #### L 501.080 ####[facility] [address] [place], [address] FINGERSTICK GLU 279 mg/dL High 74-106 [facility] Comment on above: Result Comment: ADITI GEMENT OF PATIENT CARE PER NURSING PROTOCOL Performed By: #### L 501.080 ####[facility] [address] [place], [address] FINGERSTICK GLU 201 mg/dL High 74-106 [facility] Comment on above: Result Comment: ADITI GEMENT OF PATIENT CARE PER NURSING PROTOCOL Performed By: #### L 501.080 ####[facility] [address] [place], [address] FINGERSTICK GLU 150 mg/dL High -106 [facility] Comment on above: Result Comment: ADITI GEMENT OF PATIENT CARE PER NURSING PROTOCOL Performed By: #### L 501.080 ####[facility] [address] [place], [address] Stool Occult Blood iFOBon STOB Positive Normal [facility] Comment on above: Performed By: #### M 100.7900 ####[facility] [address] [place], [address] Stool gastrointestinal hemog lobin detection by immunologic methodOrdered By: Nancy Henson on 04-21-2025 Lower GI hemoglobin IA Ql (Stl) Positive Abnormal [facility] Absolute lymphocyte countOrd ered By: Nancy Henson on 04-20-2025 Lymphocytes Auto (Unsp spec) [#/Vol] 0.52 10*3/uL Low 0.83-4.51 [facility] Automated lymphocyte count a s percentage of total leukocytesOrdered By: Nancy Henson on 04-20-2025 Lymphocytes/100 WBC Auto (Unsp spec) 3.5 % Low 19-41 [facility] Basophil percentageOrdered B y: Nancy Henson on 04-20-2025 Basophils/100 WBC (Bld) 0.1 % 0-1 [facility] Bedside Glucoseon 04-20-2025 FINGERSTICK GLU 241 mg/dL High 74-106 [facility] Comment on above: Result Comment: ADITI GEMENT OF PATIENT CARE PER NURSING PROTOCOL Performed By: #### L 501.080 ####[facility] [address] [place], [address] FINGERSTICK GLU 337 mg/dL High 74-106 [facility] Comment on above: Result Comment: ADITI GEMENT OF PATIENT CARE PER NURSING PROTOCOL Performed By: #### L 501.080 ####[facility] [address] [place], [address] FINGERSTICK GLU 391 mg/dL High 74-106 [facility] Comment on above: Result Comment: ADITI GEMENT OF PATIENT CARE PER NURSING PROTOCOL Performed By: #### L 501.080 ####[facility] [address] [place], [address] FINGERSTICK GLU 362 mg/dL High 74-106 [facility] Comment on above: Result Comment: ADITI GEMENT OF PATIENT CARE PER NURSING PROTOCOL Performed By: #### L 501.080 ####[facility] [address] [place], [address] Bilirubin, totalOrdered By: Nancy Henson on 04-20-2025 Bilirubin [Mass/Vol] 0.35 mg/dL 0.00-1.30 [facility] CBC W/Diff, Automatedon 04-02 0-2024 Absolute Lymph 0.52 X10 3/uL Low 0.83-4.51 [facility] Comment on above: Performed By: #### L 100.0100, L500.4050 ####[facility] [address] [place], [address] Absolute Neut 14.0 X10 3/uL High 2.0-7.7 [facility] Comment on above: Performed By: #### L 100.0100, L500.4050 ####[facility] [address] [place], [address] Basophils/100 WBC (Bld) 0.1 % Normal 0-1 [facility] Comment on above: Performed By: #### L 100.0100, L500.4050 ####[facility] [address] [place], [address] Eosinophils/100 WBC (Bld) 0.0 % Normal 0-5 [facility] Comment on above: Performed By: #### L 100.0100, L500.4050 ####[facility] [address] [place], [address] Erythrocyte distribution width (RBC) [Ratio] 13.6 % Normal 11.6-14.6 [facility] Comment on above: Performed By: #### L 100.0100, L500.4050 ####[facility] [address] [place], [address] Hematocrit (Bld) [Volume fraction] 24.6 % Low 40-54 [facility] Comment on above: Performed By: #### L 100.0100, L500.4050 ####[facility] [address] [place], [address] Hemoglobin (Bld) [Mass/Vol] 7.9 g/dL Low 13.0-16.5 [facility] Comment on above: Performed By: #### L 100.0100, L500.4050 ####[facility] [address] [place], [address] IG% 0.800 Normal 0.0-0.9 [facility] Comment on above: Result Comment: IG% - Immature Granulocytes (promyelocytes, myelocytes andmetamyelocytes) > 1% indicates that a LEFT SHIFT is Present. Performed By: #### L 100.0100, L500.4050 ####[facility] [address] [place] [place], [address] Lymphocytes/100 WBC (Bld) 3.5 % Low 19-41 [facility] Comment on above: Performed By: #### L 100.0100, L500.4050 ####[facility] [address] [place], [address] MCH (RBC) [Entitic mass] 29.9 pg Normal 27.0-32.0 [facility] Comment on above: Performed By: #### L 100.0100, L500.4050 ####[facility] [address] [place], [address] MCHC (RBC) [Mass/Vol] 32.1 g/dL Normal 32-36 [facility] Comment on above: Performed By: #### L 100.0100, L500.4050 ####[facility] [address] [place], [address] MCV (RBC) [Entitic vol] 93.2 fL Normal 80-94 [facility] Comment on above: Performed By: #### L 100.0100, L500.4050 ####[facility] [address] [place], [address] Monocytes/100 WBC (Bld) 1.7 % Normal 0-10 [facility] Comment on above: Performed By: #### L 100.0100, L500.4050 ####[facility] [address] [place], [address] Neutrophils/100 WBC (Bld) 93.9 % High 47-70 [facility] Comment on above: Performed By: #### L 100.0100, L500.4050 ####[facility] [address] [place], [address] Nucleated RBC (Bld) [#/Vol] 0 10*3/uL Normal 0-5 [facility] Comment on above: Performed By: #### L 100.0100, L500.4050 ####[facility] [address] [place], [address] Platelet mean volume (Bld) [Entitic vol] 11.6 fL Normal 6.2-12.0 [facility] Comment on above: Performed By: #### L 100.0100, L500.4050 ####[facility] [address] [place], [address] Platelets (Bld) [#/Vol] 216 10*3/uL Normal 150-450 [facility] Comment on above: Performed By: #### L 100.0100, L500.4050 ####[facility] [address] [place], [address] RBC (Bld) [#/Vol] 2.64 10*6/uL Low 4.6-6.2 [facility] Comment on above: Performed By: #### L 100.0100, L500.4050 ####[facility] [address] [place], [address] RDW SD 46.0 fl High 35.1-43.9 [facility] Comment on above: Performed By: #### L 100.0100, L500.4050 ####[facility] [address] [place], [address] WBC (Bld) [#/Vol] 14.9 10*3/uL High 4.4-11.0 [facility] Comment on above: Performed By: #### L 100.0100, L500.4050 ####[facility] [address] [place], [address] Comprehensive Metabolic Prof [facility] 04-20-2025 Albumin [Mass/Vol] 3.7 g/dL Normal 3.4-4.8 [facility] Comment on above: Performed By: #### L 100.0100, L500.4050 ####[facility] [address] [place], [address] Albumin/Globulin [Mass ratio] 1.5 {ratio} Normal 0.9-2.4 [facility] Comment on above: Performed By: #### L 100.0100, L500.4050 ####[facility] [address] [place], [address] ALK PHOS 78 U/L Normal 40-129 [facility] Comment on above: Performed By: #### L 100.0100, L500.4050 ####[facility] [address] [place], [address] ALT [Catalytic activity/Vol] 27 U/L Normal <=46 [facility] Comment on above: Performed By: #### L 100.0100, L500.4050 ####[facility] [address] [place], [address] AST [Catalytic activity/Vol] 21 U/L Normal <=37 [facility] Comment on above: Performed By: #### L 100.0100, L500.4050 ####[facility] [address] [place], [address] Bilirubin [Mass/Vol] 0.35 mg/dL Normal 0.00-1.30 [facility] Comment on above: Performed By: #### L 100.0100, L500.4050 ####[facility] [address] [place], [address] BUN/CRE 24.4 RATIO High 10-20 [facility] Comment on above: Performed By: #### L 100.0100, L500.4050 ####[facility] [address] [place], [address] Calcium [Mass/Vol] 9.1 mg/dL Normal 7.6-11.0 [facility] Comment on above: Performed By: #### L 100.0100, L500.4050 ####[facility] [address] [place], [address] Chloride [Moles/Vol] 99 mmol/L Normal 98-108 [facility] Comment on above: Performed By: #### L 100.0100, L500.4050 ####[facility] [address] [place], [address] CO2 [Moles/Vol] 22.7 mmol/L Normal 21.0-32.0 [facility] Comment on above: Performed By: #### L 100.0100, L500.4050 ####[facility] [address] [place], [address] Creatinine [Mass/Vol] 2.95 mg/dL High 0.70-1.20 [facility] Comment on above: Performed By: #### L 100.0100, L500.4050 ####[facility] [address] [place], [address] ECRCL 17.72 ml/min Low 50-250 [facility] Comment on above: Performed By: #### L 100.0100, L500.4050 ####[facility] [address] [place], [address] GAP 15 Normal 5-15 [facility] Comment on above: Performed By: #### L 100.0100, L500.4050 ####[facility] [address] [place], [address] GFR/1.73 sq M.predicted among non-blacks MDRD (S/P/Bld) [Vol rate/Area] 21 mL/min/{1.73_m2} Low >60 [facility] Comment on above: Result Comment: mL/m in/1.73m2 CKD-EPI Creatinine Equation (2020) Performed By: #### L 100.0100, L500.4050 ####[facility] [address] [place], [address] Globulin (S) [Mass/Vol] 2.5 g/dL Normal 2.2-4.2 [facility] Comment on above: Performed By: #### L 100.0100, L500.4050 ####[facility] [address] [place], [address] Glucose [Mass/Vol] 375 mg/dL High 70-99 [facility] Comment on above: Performed By: #### L 100.0100, L500.4050 ####[facility] [address] [place], [address] Potassium [Moles/Vol] 4.7 mmol/L Normal 3.3-5.1 [facility] Comment on above: Performed By: #### L 100.0100, L500.4050 ####[facility] [address] [place], [address] Sodium [Moles/Vol] 136 mmol/L Normal 133-145 [facility] Comment on above: Performed By: #### L 100.0100, L500.4050 ####[facility] [address] [place], [address] T PROT 6.2 g/dL Normal 5.9-8.4 [facility] Comment on above: Performed By: #### L 100.0100, L500.4050 ####[facility] [address] [place], [address] Urea nitrogen [Mass/Vol] 72 mg/dL High 4-19 [facility] Comment on above: Performed By: #### L 100.0100, L500.4050 ####[facility] [address] [place], [address] Consultation - Cardiologyon 04-20-2025 Consultation - Cardiology Normal [facility] Electrocardiogram reportOrde red By: Barbie Martin on 04-20-2025 EKG study [facility] Work Phone: [phone] Eosinophil percentageOrdered By: Nancy Henson on 04-20-2025 Eosinophils/100 WBC (Bld) 0.0 % 0-5 [facility] Erythrocyte distribution wid th ratioOrdered By: Nancy Henson on 04-20-2025 Erythrocyte distribution width (RBC) [Ratio] 13.6 % 11.6-14.6 [facility] Erythrocyte distribution wid th standard deviationOrdered By: Nancy Henson on 04-20-2025 Erythrocyte distribution width (RBC) [Ratio] 46.0 fl High 35.1-43.9 [facility] Hematocrit Auto (Bld) [Volum e fraction]Ordered By: Nancy Henson on 04-20-2025 Hematocrit (Bld) [Volume fraction] 24.6 % Low 40-54 [facility] Hemoglobin measurementOrdere d By: Nancy Henson on 04-20-2025 Hemoglobin (Bld) [Mass/Vol] 7.9 g/dL Low 13.0-16.5 [facility] Immature granulocytes/100 WB C Auto (Bld)Ordered By: Nancy Henson on 04-20-2025 Immature granulocytes/100 WBC (Bld) 0.800 % 0.0-0.9 [facility] MCV (mean corpuscular volume ) determinationOrdered By: Nancy Henson on 04-20-2025 MCV (RBC) [Entitic vol] 93.2 fL 80-94 [facility] Mean corpuscular hemoglobin (MCH) determinationOrdered By: Nancy Henson on 04-20-2025 MCH (RBC) [Entitic mass] 29.9 pg 27.0-32.0 [facility] Monocyte percentageOrdered B y: Nancy Henson on 04-20-2025 Monocytes/100 WBC (Bld) 1.7 % 0-10 [facility] Neutrophil percentageOrdered By: Nancy Henson on 04-20-2025 Neutrophils/100 WBC (Bld) 93.9 % High 47-70 [facility] No Panel InformationOrdered By: Nancy Henson on 04-20-2025 21 U/L <38 [facility] Platelet countOrdered By: Juwan Henson on 04-20-2025 Platelets (Bld) [#/Vol] 216 10*3/uL 150-450 [facility] RBC Auto (Bld) [#/Vol]Ordere d By: Nancy Henson on 04-20-2025 RBC (Bld) [#/Vol] 2.64 10*6/uL Low 4.6-6.2 [facility] Serum globulin measurementOr dered By: Nancy Henson on 04-20-2025 Globulin (S) [Mass/Vol] 2.5 g/dL 2.2-4.2 [facility] Serum or plasma alanine clayton otransferase (ALT) measurementOrdered By: Nancy Henson on 04-20-2025 ALT [Catalytic activity/Vol] 27 U/L <47 [facility] Serum or plasma albumin nikkie urement (mass/volume)Ordered By: Nancy Henson on 04-20-2025 Albumin [Mass/Vol] 3.7 g/dL 3.4-4.8 [facility] Serum or plasma albumin/glob ulin mass ratioOrdered By: Nancy Henson on 04-20-2025 Albumin/Globulin [Mass ratio] 1.5 {ratio} 0.9-2.4 [facility] Serum or plasma alkaline dwight sphatase measurementOrdered By: Nancy Henson on 04-20-2025 ALP [Catalytic activity/Vol] 78 U/L 40-129 [facility] Total proteinOrdered By: Saravanan Henson on 04-20-2025 Protein [Mass/Vol] 6.2 g/dL 5.9-8.4 [facility] White blood cell (WBC) count Ordered By: Nancy Henson on 04-20-2025 WBC (Bld) [#/Vol] 14.9 10*3/uL High 4.4-11.0 [facility] 12 Lead EKGon 04-19-2025 12 Lead EKG Normal [facility] 12 Lead EKG Normal [facility] Absolute lymphocyte countOrd ered By: Arnulfo Jose on 04-19-2025 Lymphocytes Auto (Unsp spec) [#/Vol] 1.40 10*3/uL 0.83-4.51 [facility] Anion gap in Serum or Plasma Ordered By: Arnulfo Jose on 04-19-2025 Anion gap [Moles/Vol] 15 mmol/L 5-15 [facility] Assessment of wrist artery p atency prior to arterial punctureOrdered By: Nancy Henson on 04-19-2025 Arterial patency Wrist artery --pre arterial puncture N/A [facility] Arterial patency Wrist artery --pre arterial puncture Positive [facility] Automated lymphocyte count a s percentage of total leukocytesOrdered By: Arnulfo Jose on 04-19-2025 Lymphocytes/100 WBC Auto (Unsp spec) 10.0 % Low 19-41 [facility] BUN/creatinine ratioOrdered By: Arnulfo Jose on 04-19-2025 Urea nitrogen/Creatinine [Mass ratio] 23.8 mg/mg High 10-20 [facility] Basic Metabolic Profile (BMP )on 04-19-2025 BUN/CRE 24.8 RATIO High 10-20 [facility] Comment on above: Performed By: #### L 500.2500 ####[facility] [address] [place], [address] Calcium [Mass/Vol] 9.1 mg/dL Normal 7.6-11.0 [facility] Comment on above: Performed By: #### L 500.2500 ####[facility] [address] [place], [address] Chloride [Moles/Vol] 101 mmol/L Normal 98-108 [facility] Comment on above: Performed By: #### L 500.2500 ####[facility] [address] [place], [address] CO2 [Moles/Vol] 21.1 mmol/L Normal 21.0-32.0 [facility] Comment on above: Performed By: #### L 500.2500 ####[facility] [address] [place], [address] Creatinine [Mass/Vol] 2.79 mg/dL High 0.70-1.20 [facility] Comment on above: Performed By: #### L 500.2500 ####[facility] [address] [place], [address] ECRCL 18.74 ml/min Low 50-250 [facility] Comment on above: Performed By: #### L 500.2500 ####[facility] [address] [place], [address] GAP 15 Normal 5-15 [facility] Comment on above: Performed By: #### L 500.2500 ####[facility] [address] [place], [address] GFR/1.73 sq M.predicted among non-blacks MDRD (S/P/Bld) [Vol rate/Area] 22 mL/min/{1.73_m2} Low >60 [facility] Comment on above: Result Comment: mL/m in/1.73m2 CKD-EPI Creatinine Equation (2020) Performed By: #### L 500.2500 ####[facility] [address] [place], [address] Glucose [Mass/Vol] 447 mg/dL High 70-99 [facility] Comment on above: Performed By: #### L 500.2500 ####[facility] [address] [place], [address] Potassium [Moles/Vol] 4.9 mmol/L Normal 3.3-5.1 [facility] Comment on above: Performed By: #### L 500.2500 ####[facility] [address] [place], [address] Sodium [Moles/Vol] 137 mmol/L Normal 133-145 [facility] Comment on above: Performed By: #### L 500.2500 ####[facility] [address] [place], [address] Urea nitrogen [Mass/Vol] 69 mg/dL High 4-19 [facility] Comment on above: Performed By: #### L 500.2500 ####[facility] [address] [place], [address] BUN/CRE 23.8 RATIO High 10-20 [facility] Comment on above: Performed By: #### L 503.7505, L501.5200, L500.2500, L100.0100 ####[facility] [address] [place], [address] Calcium [Mass/Vol] 8.6 mg/dL Normal 7.6-11.0 [facility] Comment on above: Performed By: #### L 503.7505, L501.5200, L500.2500, L100.0100 ####[facility] [address] [place], [address] Chloride [Moles/Vol] 100 mmol/L Normal 98-108 [facility] Comment on above: Performed By: #### L 503.7505, L501.5200, L500.2500, L100.0100 ####[facility] [address] [place], [address] CO2 [Moles/Vol] 20.9 mmol/L Low 21.0-32.0 [facility] Comment on above: Performed By: #### L 503.7505, L501.5200, L500.2500, L100.0100 ####[facility] [address] [place], [address] Creatinine [Mass/Vol] 2.73 mg/dL High 0.70-1.20 [facility] Comment on above: Performed By: #### L 503.7505, L501.5200, L500.2500, L100.0100 ####[facility] [address] [place], [address] ECRCL 19.84 ml/min Low 50-250 [facility] Comment on above: Performed By: #### L 503.7505, L501.5200, L500.2500, L100.0100 ####[facility] [address] [place], [address] GAP 15 Normal 5-15 [facility] Comment on above: Performed By: #### L 503.7505, L501.5200, L500.2500, L100.0100 ####[facility] [address] [place], [address] GFR/1.73 sq M.predicted among non-blacks MDRD (S/P/Bld) [Vol rate/Area] 23 mL/min/{1.73_m2} Low >60 [facility] Comment on above: Result Comment: mL/m in/1.73m2 CKD-EPI Creatinine Equation (2020) Performed By: #### L 503.7505, L501.5200, L500.2500, L100.0100 ####[facility] [address] [place], [address] Glucose [Mass/Vol] 406 mg/dL High 70-99 [facility] Comment on above: Performed By: #### L 503.7505, L501.5200, L500.2500, L100.0100 ####[facility] [address] [place], [address] Potassium [Moles/Vol] 5.9 mmol/L High 3.3-5.1 [facility] Comment on above: Performed By: #### L 503.7505, L501.5200, L500.2500, L100.0100 ####[facility] [address] [place], [address] Sodium [Moles/Vol] 136 mmol/L Normal 133-145 [facility] Comment on above: Performed By: #### L 503.7505, L501.5200, L500.2500, L100.0100 ####[facility] [address] [place], [address] Urea nitrogen [Mass/Vol] 65 mg/dL High 4-19 [facility] Comment on above: Performed By: #### L 503.7505, L501.5200, L500.2500, L100.0100 ####[facility] [address] [place], [address] Basophil percentageOrdered B y: Arnulfo Jose on 06-19-2025 Basophils/100 WBC (Bld) 0.5 % 0-1 [facility] Bedside Glucoseon 04-19-2025 FINGERSTICK GLU 393 mg/dL High 74-106 [facility] Comment on above: Result Comment: ADITI GEMENT OF PATIENT CARE PER NURSING PROTOCOL Performed By: #### L 501.080 ####[facility] [address] [place], [address] FINGERSTICK GLU 374 mg/dL High 74-106 [facility] Comment on above: Result Comment: ADITI GEMENT OF PATIENT CARE PER NURSING PROTOCOL Performed By: #### L 501.080 ####[facility] [address] [place], [address] FINGERSTICK GLU 376 mg/dL High [address] [place] [address] Comment on above: Result Comment: ADITI GEMENT OF PATIENT CARE PER NURSING PROTOCOL Performed By: #### L 501.080 ####[facility] [address] [place], [address] FINGERSTICK GLU 403 mg/dL High [address] [place] [address] Comment on above: Result Comment: ADITI GEMENT OF PATIENT CARE PER NURSING PROTOCOL Performed By: #### L 501.080 ####[facility] [address] [place], [address] FINGERSTICK GLU 437 mg/dL High [address] [place] [address] Comment on above: Result Comment: ADITI GEMENT OF PATIENT CARE PER NURSING PROTOCOL Performed By: #### L 501.080 ####[facility] [address] [place], [address] Bilirubin Test strip Ql (U)O rdered By: Nancy Henson on 04-19-2025 Bilirubin Ql (U) Negative Negative [facility] Blood Gases by CPSon 025 FILI TEST N/A Normal [facility] Comment on above: Performed By: #### L 9000.0800 ####[facility] [address] [place], [address] Base excess Calc (Bld) [Moles/Vol] -2 mmol/L Normal -2 to +2 [facility] Comment on above: Performed By: #### L 8999.0800 ####[facility] [address] [place], [address] Blood Gas Type ART Normal [facility] Comment on above: Performed By: #### L 8999.0800 ####[facility] [address] [place], [address] CO2 [Moles/Vol] 23 mmol/L Normal [facility] Comment on above: Performed By: #### L 8999.0800 ####[facility] [address] [place], [address] Comment AIRVO 50L 50% Normal [facility] Comment on above: Performed By: #### L 8999.0800 ####[facility] [address] [place], [address] HCO3 (Bld) [Moles/Vol] 22.4 mmol/L Normal 22-26 [facility] Comment on above: Performed By: #### L 8999.0800 ####[facility] [address] [place], [address] Mode Not entered Normal [facility] Comment on above: Performed By: #### L 0.0800 ####[facility] [address] [place], [address] O2 Delivery Dev AIRVO Normal [facility] Comment on above: Performed By: #### L 8999.0800 ####[facility] [address] [place], [address] pCO2 33.2 mmHg Low 35-45 [facility] Comment on above: Performed By: #### L 0.0800 ####[facility] [address] [place], [address] pH (Bld) 7.44 [pH] Normal 7.35-7.45 [facility] Comment on above: Performed By: #### L 9000.0800 ####[facility] [address] [place], [address] PO2 92 mmHG Normal 75-100 [facility] Comment on above: Performed By: #### L 9000.0800 ####[facility] [address] [place], [address] SITE L Radial Normal [facility] Comment on above: Performed By: #### L 9000.0800 ####[facility] [address] [place], [address] SO2 98 Normal 95-99 [facility] Comment on above: Performed By: #### L 9000.0800 ####[facility] [address] [place], [address] FILI TEST Positive Normal [facility] Comment on above: Performed By: #### L 9000.0800 ####[facility] [address] [place], [address] Base excess Calc (Bld) [Moles/Vol] -2 mmol/L Normal -2 to +2 [facility] Comment on above: Performed By: #### L 9000.0800 ####[facility] [address] [place], [address] Blood Gas Type ART Normal [facility] Comment on above: Performed By: #### L 9000.0800 ####[facility] [address] [place], [address] CO2 [Moles/Vol] 23 mmol/L Normal [facility] Comment on above: Performed By: #### L 9000.0800 ####[facility] [address] [place], [address] FI02 50.0 Normal [facility] Comment on above: Performed By: #### L 9000.0800 ####[facility] [address] [place], [address] HCO3 (Bld) [Moles/Vol] 21.6 mmol/L Low 22-26 [facility] Comment on above: Performed By: #### L 9000.0800 ####[facility] [address] [place], [address] Mode Not entered Normal [facility] Comment on above: Performed By: #### L 9000.0800 ####[facility] [address] [place], [address] O2 Delivery Dev HFNC Normal [facility] Comment on above: Performed By: #### L 9000.0800 ####[facility] [address] [place], [address] pCO2 30.8 mmHg Low 35-45 [facility] Comment on above: Performed By: #### L 9000.0800 ####[facility] [address] [place], [address] pH (Bld) 7.45 [pH] Normal 7.35-7.45 [facility] Comment on above: Performed By: #### L 9000.0800 ####[facility] [address] [place], [address] PO2 103 mmHG High 75-100 [facility] Comment on above: Performed By: #### L 9000.0800 ####[facility] [address] [place], [address] SITE L Radial Normal [facility] Comment on above: Performed By: #### L 9000.0800 ####[facility] [address] [place], [address] SO2 98 Normal 95-99 [facility] Comment on above: Performed By: #### L 9000.0800 ####[facility] [address] [place], [address] Blood base excess determinat ionOrdered By: Nancy Henson on 04-19-2025 Base excess Calc (BldV) [Moles/Vol] -2 mmol/L -2-2 [facility] Base excess Calc (BldV) [Moles/Vol] -2 mmol/L -2-2 [facility] Blood bicarbonate measuremen tOrdered By: Nancy Henson on 04-19-2025 HCO3 (Bld) [Moles/Vol] 22.4 mmol/L 22- [facility] HCO3 (Bld) [Moles/Vol] 21.6 mmol/L Low -26 [facility] CBC W/Diff, Automatedon 04-01 Absolute Lymph 0.33 X10 3/uL Low 0.83-4.51 [facility] Comment on above: Performed By: #### L 501.9985, L100.0100, L501.2300 ####[facility] [address] [place], [address] Absolute Neut 12.7 X10 3/uL High 2.0-7.7 [facility] Comment on above: Performed By: #### L 501.9985, L100.0100, L501.2300 ####[facility] [address] [place], [address] Basophils/100 WBC (Bld) 0.2 % Normal 0-1 [facility] Comment on above: Performed By: #### L 501.9985, L100.0100, L501.2300 ####[facility] [address] [place], [address] Eosinophils/100 WBC (Bld) 0.1 % Normal 0-5 [facility] Comment on above: Performed By: #### L 501.9985, L100.0100, L501.2300 ####[facility] [address] [place], [address] Erythrocyte distribution width (RBC) [Ratio] 13.4 % Normal 11.6-14.6 [facility] Comment on above: Performed By: #### L 501.9985, L100.0100, L501.2300 ####[facility] [address] [place], [address] Hematocrit (Bld) [Volume fraction] 23.7 % Low 40-54 [facility] Comment on above: Performed By: #### L 501.9985, L100.0100, L501.2300 ####[facility] [address] [place], [address] Hemoglobin (Bld) [Mass/Vol] 7.5 g/dL Low 13.0-16.5 [facility] Comment on above: Performed By: #### L 501.9985, L100.0100, L501.2300 ####[facility] [address] [place], [address] IG% 0.600 Normal 0.0-0.9 [facility] Comment on above: Result Comment: IG% - Immature Granulocytes (promyelocytes, myelocytes andmetamyelocytes) > 1% indicates that a LEFT SHIFT is Present. Performed By: #### L 501.9985, L100.0100, L501.2300 ####[facility] [address] [place], [address] Lymphocytes/100 WBC (Bld) 2.4 % Low 19-41 [facility] Comment on above: Performed By: #### L 501.9985, L100.0100, L501.2300 ####[facility] [address] [place], [address] MCH (RBC) [Entitic mass] 29.8 pg Normal 27.0-32.0 [facility] Comment on above: Performed By: #### L 501.9985, L100.0100, L501.2300 ####[facility] [address] [place], [address] MCHC (RBC) [Mass/Vol] 31.6 g/dL Low 32-36 [facility] Comment on above: Performed By: #### L 501.9985, L100.0100, L501.2300 ####[facility] [address] [place], [address] MCV (RBC) [Entitic vol] 94.0 fL Normal 80-94 [facility] Comment on above: Performed By: #### L 501.9985, L100.0100, L501.2300 ####[facility] [address] [place], [address] Monocytes/100 WBC (Bld) 2.4 % Normal 0-10 [facility] Comment on above: Performed By: #### L 501.9985, L100.0100, L501.2300 ####[facility] [address] [place], [address] Neutrophils/100 WBC (Bld) 94.3 % High 47-70 [facility] Comment on above: Performed By: #### L 501.9985, L100.0100, L501.2300 ####[facility] [address] [place], [address] Nucleated RBC (Bld) [#/Vol] 0 10*3/uL Normal 0-5 [facility] Comment on above: Performed By: #### L 501.9985, L100.0100, L501.2300 ####[facility] [address] [place], [address] Platelet mean volume (Bld) [Entitic vol] 11.3 fL Normal 6.2-12.0 [facility] Comment on above: Performed By: #### L 501.9985, L100.0100, L501.2300 ####[facility] [address] [place], [address] Platelets (Bld) [#/Vol] 218 10*3/uL Normal 150-450 [facility] Comment on above: Performed By: #### L 501.9985, L100.0100, L501.2300 ####[facility] [address] [place], [address] RBC (Bld) [#/Vol] 2.52 10*6/uL Low 4.6-6.2 [facility] Comment on above: Performed By: #### L 501.9985, L100.0100, L501.2300 ####[facility] [address] [place], [address] RDW SD 46.2 fl High 35.1-43.9 [facility] Comment on above: Performed By: #### L 501.9985, L100.0100, L501.2300 ####[facility] [address] [place], [address] WBC (Bld) [#/Vol] 13.5 10*3/uL High 4.4-11.0 [facility] Comment on above: Performed By: #### L 501.9985, L100.0100, L501.2300 ####[facility] [address] [place], [address] Absolute Lymph 1.40 X10 3/uL Normal 0.83-4.51 [facility] Comment on above: Performed By: #### L 503.7505, L501.5200, L500.2500, L100.0100 ####[facility] [address] [place], [address] Absolute Neut 11.5 X10 3/uL High 2.0-7.7 [facility] Comment on above: Performed By: #### L 503.7505, L501.5200, L500.2500, L100.0100 ####[facility] [address] [place], [address] Basophils/100 WBC (Bld) 0.5 % Normal 0-1 [facility] Comment on above: Performed By: #### L 503.7505, L501.5200, L500.2500, L100.0100 ####[facility] [address] [place], [address] Eosinophils/100 WBC (Bld) 1.0 % Normal 0-5 [facility] Comment on above: Performed By: #### L 503.7505, L501.5200, L500.2500, L100.0100 ####[facility] [address] [place], [address] Erythrocyte distribution width (RBC) [Ratio] 13.4 % Normal 11.6-14.6 [facility] Comment on above: Performed By: #### L 503.7505, L501.5200, L500.2500, L100.0100 ####[facility] [address] [place], [address] Hematocrit (Bld) [Volume fraction] 27.5 % Low 40-54 [facility] Comment on above: Performed By: #### L 503.7505, L501.5200, L500.2500, L100.0100 ####[facility] [address] [place], [address] Hemoglobin (Bld) [Mass/Vol] 8.8 g/dL Low 13.0-16.5 [facility] Comment on above: Performed By: #### L 503.7505, L501.5200, L500.2500, L100.0100 ####[facility] [address] [place], [address] IG% 0.500 Normal 0.0-0.9 [facility] Comment on above: Result Comment: IG% - Immature Granulocytes (promyelocytes, myelocytes andmetamyelocytes) > 1% indicates that a LEFT SHIFT is Present. Performed By: #### L 503.7505, L501.5200, L500.2500, L100.0100 ####[facility] [address] [place], [address] Lymphocytes/100 WBC (Bld) 10.0 % Low 19-41 [facility] Comment on above: Performed By: #### L 503.7505, L501.5200, L500.2500, L100.0100 ####[facility] [address] [place], [address] MCH (RBC) [Entitic mass] 30.0 pg Normal 27.0-32.0 [facility] Comment on above: Performed By: #### L 503.7505, L501.5200, L500.2500, L100.0100 ####[facility] [address] [place], [address] MCHC (RBC) [Mass/Vol] 32.0 g/dL Normal 32-36 [facility] Comment on above: Performed By: #### L 503.7505, L501.5200, L500.2500, L100.0100 ####[facility] [address] [place], [address] MCV (RBC) [Entitic vol] 93.9 fL Normal 80-94 [facility] Comment on above: Performed By: #### L 503.7505, L501.5200, L500.2500, L100.0100 ####[facility] [address] [place], [address] Monocytes/100 WBC (Bld) 5.7 % Normal 0-10 [facility] Comment on above: Performed By: #### L 503.7505, L501.5200, L500.2500, L100.0100 ####[facility] [address] [place], [address] Neutrophils/100 WBC (Bld) 82.3 % High 47-70 [facility] Comment on above: Performed By: #### L 503.7505, L501.5200, L500.2500, L100.0100 ####[facility] [address] [place], [address] Nucleated RBC (Bld) [#/Vol] 0 10*3/uL Normal 0-5 [facility] Comment on above: Performed By: #### L 503.7505, L501.5200, L500.2500, L100.0100 ####[facility] [address] [place], [address] Platelet mean volume (Bld) [Entitic vol] 11.4 fL Normal 6.2-12.0 [facility] Comment on above: Performed By: #### L 503.7505, L501.5200, L500.2500, L100.0100 ####[facility] [address] [place], [address] Platelets (Bld) [#/Vol] 289 10*3/uL Normal 150-450 [facility] Comment on above: Performed By: #### L 503.7505, L501.5200, L500.2500, L100.0100 ####[facility] [address] [place], [address] RBC (Bld) [#/Vol] 2.93 10*6/uL Low 4.6-6.2 [facility] Comment on above: Performed By: #### L 503.7505, L501.5200, L500.2500, L100.0100 ####[facility] [address] [place], [address] RDW SD 46.1 fl High 35.1-43.9 [facility] Comment on above: Performed By: #### L 503.7505, L501.5200, L500.2500, L100.0100 ####[facility] [address] [place], [address] WBC (Bld) [#/Vol] 14.0 10*3/uL High 4.4-11.0 [facility] Comment on above: Performed By: #### L 503.7505, L501.5200, L500.2500, L100.0100 ####[facility] [address] [place], [address] Carbon dioxide, total [Moles /volume] in Central venous bloodOrdered By: Arnulfo Jose on 04-19-2025 CO2 [Moles/Vol] 20.9 mmol/L Low 21.0-32.0 [facility] Chest 1 View (Portable)on Chest 1 View (Portable) Normal [facility] Chloride assayOrdered By: Stephenie Jose on 04-19-2025 Chloride [Moles/Vol] 100 mmol/L 98-108 [facility] Comprehensive Metabolic Prof ilon 04-19-2025 Albumin [Mass/Vol] 3.3 g/dL Low 3.4-4.8 [facility] Comment on above: Performed By: #### L 503.7505, L501.9520, L500.4050 ####[facility] [address] [place], [address] Albumin/Globulin [Mass ratio] 1.3 {ratio} Normal 0.9-2.4 [facility] Comment on above: Performed By: #### L 503.7505, L501.9520, L500.4050 ####[facility] [address] [place], [address] ALK PHOS 76 U/L Normal 40-129 [facility] Comment on above: Performed By: #### L 503.7505, L501.9520, L500.4050 ####[facility] [address] [place], [address] ALT [Catalytic activity/Vol] 30 U/L Normal <=46 [facility] Comment on above: Performed By: #### L 503.7505, L501.9520, L500.4050 ####[facility] [address] [place], [address] AST [Catalytic activity/Vol] 26 U/L Normal <=37 [facility] Comment on above: Performed By: #### L 503.7505, L501.9520, L500.4050 ####[facility] [address] [place], [address] Bilirubin [Mass/Vol] 0.31 mg/dL Normal 0.00-1.30 [facility] Comment on above: Performed By: #### L 503.7505, L501.9520, L500.4050 ####[facility] [address] [place], [address] BUN/CRE 23.4 RATIO High 10-20 [facility] Comment on above: Performed By: #### L 503.7505, L501.9520, L500.4050 ####[facility] [address] [place], [address] Calcium [Mass/Vol] 9.3 mg/dL Normal 7.6-11.0 [facility] Comment on above: Performed By: #### L 503.7505, L501.9520, L500.4050 ####[facility] [address] [place], [address] Chloride [Moles/Vol] 101 mmol/L Normal 98-108 [facility] Comment on above: Performed By: #### L 503.7505, L501.9520, L500.4050 ####[facility] [address] [place], [address] CO2 [Moles/Vol] 17.8 mmol/L Low 21.0-32.0 [facility] Comment on above: Performed By: #### L 503.7505, L501.9520, L500.4050 ####[facility] [address] [place], [address] Creatinine [Mass/Vol] 2.95 mg/dL High 0.70-1.20 [facility] Comment on above: Performed By: #### L 503.7505, L501.9520, L500.4050 ####[facility] [address] [place], [address] ECRCL 17.72 ml/min Low 50-250 [facility] Comment on above: Performed By: #### L 503.7505, L501.9520, L500.4050 ####[facility] [address] [place], [address] GAP 18 High 5-15 [facility] Comment on above: Performed By: #### L 503.7505, L501.9520, L500.4050 ####[facility] [address] [place], [address] GFR/1.73 sq M.predicted among non-blacks MDRD (S/P/Bld) [Vol rate/Area] 21 mL/min/{1.73_m2} Low >60 [facility] Comment on above: Result Comment: mL/m in/1.73m2 CKD-EPI Creatinine Equation (2020) Performed By: #### L 503.7505, L501.9520, L500.4050 ####[facility] [address] [place], [address] Globulin (S) [Mass/Vol] 2.5 g/dL Normal 2.2-4.2 [facility] Comment on above: Performed By: #### L 503.7505, L501.9520, L500.4050 ####[facility] [address] [place], [address] Glucose [Mass/Vol] 447 mg/dL High 70-99 [facility] Comment on above: Performed By: #### L 503.7505, L501.9520, L500.4050 ####[facility] [address] [place], [address] Potassium [Moles/Vol] 5.2 mmol/L High 3.3-5.1 [facility] Comment on above: Performed By: #### L 503.7505, L501.9520, L500.4050 ####[facility] [address] [place], [address] Sodium [Moles/Vol] 137 mmol/L Normal 133-145 [facility] Comment on above: Performed By: #### L 503.7505, L501.9520, L500.4050 ####[facility] [address] [place], [address] T PROT 5.8 g/dL Low 5.9-8.4 [facility] Comment on above: Performed By: #### L 503.7505, L501.9520, L500.4050 ####[facility] [address] [place], [address] Urea nitrogen [Mass/Vol] 69 mg/dL High 4-19 [facility] Comment on above: Performed By: #### L 503.7505, L501.9520, L500.4050 ####[facility] [address] [place], [address] Consultation - Nephrologyon 04-19-2025 Consultation - Nephrology Normal [facility] D-Dimer Quantitative (DVT/PE )on 04-19-2025 D-DIMER QUANT 2.17 FEU/ug/m Invalid Interpretation Code 0.27-0.49 [facility] Comment on above: Result Comment: D-Di shyanne ELEVATED (>0.49): Additional studies and clinicalassessments are indicated to conclude diagnosis of:Deep Vein Thrombosis (DVT) or Pulmonary Embolism (PE)CRITICAL VALUE CALLED TO DELFIN ECLHUW29/19/25 0101 Lydia Villanueva.RESULTS READ BACK BY SAME. Performed By: #### L 509.7001, L300.8000 ####[facility] [address] [place], [address] Emergency Department Summary on 04-19-2025 Emergency Department Summary Normal [facility] Eosinophil percentageOrdered By: Arnulfo Jose on 04-19-2025 Eosinophils/100 WBC (Bld) 1.0 % 0-5 [facility] Erythrocyte distribution wid th ratioOrdered By: Arnulfo Jose on 04-19-2025 Erythrocyte distribution width (RBC) [Ratio] 13.4 % 11.6-14.6 [facility] Erythrocyte distribution wid th standard deviationOrdered By: Arnulfo Jose on 04-19-2025 Erythrocyte distribution width (RBC) [Ratio] 46.1 fl High 35.1-43.9 [facility] Glomerular filtration rate ( GFR) estimation/1.73 sq m using serum, plasma, or whole bOrdered By: Arnulfo Jose on 04-19-2025 GFR/1.73 sq M.predicted among non-blacks MDRD (S/P/Bld) [Vol rate/Area] 23 mL/min/{1.73_m2} Low >60 [facility] Glucose measurement at [facility] deOrdered By: Nancy Henson on 04-19-2025 Glucose [Mass/Vol] 437 mg/dL High 74-106 [facility] H AND P Exam - Hospitaliston 04-19-2025 H&P Exam - Hospitalist Normal [facility] Hematocrit Auto (Bld) [Volum e fraction]Ordered By: Arnulfo Jose on 04-19-2025 Hematocrit (Bld) [Volume fraction] 27.5 % Low 40-54 [facility] Hemoglobin A1con 04-19-2025 HbA1c (Bld) [Mass fraction] 7.1 % High <=5.6 [facility] Comment on above: Result Comment: Norm al < 5.7 % Prediabetic 5.7 - 6.4 % Diabetic >or= 6.5 % Please note range changes. Performed By: #### L 501.9985, L100.0100, L501.2300 ####[facility] [address] [place], [address] Hemoglobin A1c percentageOrd ered By: Nancy Henson on 04-19-2025 HbA1c (Bld) [Mass fraction] 7.1 % High <5.7 [facility] Hemoglobin measurementOrdere d By: Arnulfo Jose on 04-19-2025 Hemoglobin (Bld) [Mass/Vol] 8.8 g/dL Low 13.0-16.5 [facility] Immature granulocytes/100 WB C Auto (Bld)Ordered By: Arnulfo Jose on 04-19-2025 Immature granulocytes/100 WBC (Bld) 0.500 % 0.0-0.9 [facility] Influenza virus A and B and SARS-CoV-2 (COVID-19) and Respiratory syncytial virus RNAOrdered By: Arnulfo Jose on 04-19-2025 SARS-CoV-2 (COVID-19) RNA ALICE+probe Ql (Unsp spec) [facility] Ketones Test strip Ql (U)Ord ered By: Nancy Henson on 04-19-2025 Ketones Ql (U) Negative Negative [facility] L499.0042on 04-19-2025 Trop T High Sen 385 ng/L Invalid Interpretation Code <=22 [facility] Comment on above: Result Comment: Crit ical Result(s) Called at 0636: by: BIPIN BROWNE. ??Results read back by same. Performed By: #### L 499.0042 ####[facility] [address] [place], [address] L499.0043on 04-19-2025 Trop T High Sen 350 ng/L Invalid Interpretation Code <=22 [facility] Comment on above: Result Comment: Crit ical Result(s) Called at: 04/19/2025-10:51 by: Neal escalona Zelalem Fowler.??Results read back by same. Performed By: #### L 499.0043 ####[facility] [address] [place], [address] L501.4021on 04-19-2025 Trop T High Sen 394 ng/L Invalid Interpretation Code <=22 [facility] Comment on above: Result Comment: Crit ical Result(s) Called at 0511: by: BIPIN SILVERMAN.??Results read back by same. Performed By: #### L 501.4021 ####[facility] [address] [facility] [place], [address] L503.7505on 04-19-2025 Natriuretic peptide B (Bld) [Mass/Vol] 41875 pg/mL High <=1800 [facility] Comment on above: Result Comment: Hear t Failure Unlikely: < 300 pg/mLHeart Failure Likely< 50 Years: > 450 pg/mL50-75 Years: > 900 pg/mL>75 Years: > 1800 pg/mL Performed By: #### L 503.7505, L501.9520, L500.4050 ####[facility] [address] [place], [address] Natriuretic peptide B (Bld) [Mass/Vol] 61133 pg/mL High <=1800 [facility] Comment on above: Result Comment: Hear t Failure Unlikely: < 300 pg/mLHeart Failure Likely< 50 Years: > 450 pg/mL50-75 Years: > 900 pg/mL>75 Years: > 1800 pg/mL Performed By: #### L 503.7505, L501.5200, L500.2500, L100.0100 ####[facility] [address] [place], [address] L509.7001on 04-19-2025 Procalcitonin 0.10 ng/mL Normal <=0.10 [facility] Comment on above: Result Comment: Inte rpretation:<0.10-0.25 ng/mL: Antibiotic therapy discouraged. Bacterialinfection unlikely.0.25-0.50 ng/mL: Antibiotic therapy encouraged. Bacterialinfection possible.>0.50 ng/mL: Antibiotic therapy strongly encouraged.Suggestive of presence of bacterial infection.PCT should always be interpreted in the clinical context ofthe patient. Therefore, clinicians should use the PCTresults in conjunction with other laboratory findings andclinical signs of the patient. Performed By: #### L 509.7001, L300.8000 ####[facility] [address] [place], [address] Lactic Acidon 04-19-2025 Lactate [Moles/Vol] 2.7 mmol/L Invalid Interpretation Code 0.0-2.0 [facility] Comment on above: Result Comment: Crit ical Result(s) Called at: 04/19/2025-10:35 by: Iraida.??Results read back by same. Performed By: #### L 503.6006 ####[facility] [address] [place], [place], [id number] Lactate [Moles/Vol] 4.8 mmol/L Invalid Interpretation Code 0.0-2.0 [facility] Comment on above: Order Comment: Y Result Comment: Crit ical Result(s) Called at 0448: by: BIPIN BROWNE. ??Results read back by same. Performed By: #### L 503.600 ####[facility] [address] [place], [place], [id number] Lung Scan Vent/Perfon 2024 Lung Scan Vent/Perf Normal [facility] M100.678on 04-19-2025 M100.678 SARS-CoV-2 (COVID 19) Negative INFLUENZA A Negative INFLUENZA B Negative RSV PCR Negative Normal [facility] Comment on above: Performed By: #### M 100.678 ####[facility] [address] [place], [address] MCV (mean corpuscular volume ) determinationOrdered By: Arnulfo Jose on 04-19-2025 MCV (RBC) [Entitic vol] 93.9 fL 80-94 [facility] Magnesiumon 04-19-2025 Magnesium [Mass/Vol] 2.3 mg/dL High 1.5-2.2 [facility] Comment on above: Performed By: #### L 503.7505, L501.5200, L500.2500, L100.0100 ####[facility] [address] [place], [address] Magnesium measurement (mass/ volume)Ordered By: Arnulfo Jose on 04-19-2025 Magnesium (Unsp spec) [Mass/Vol] 2.3 mg/dL High 1.5-2.2 [facility] Mean corpuscular hemoglobin (MCH) determinationOrdered By: Arnulfo Jose on 04-19-2025 MCH (RBC) [Entitic mass] 30.0 pg 27.0-32.0 [facility] Measurement, pHOrdered By: Nadeem Henson on 04-19-2025 pH (Unsp spec) 7.44 [pH] 7.35-7.45 [facility] pH (Unsp spec) 7.45 [pH] 7.35-7.45 [facility] Monocyte percentageOrdered B y: Arnulfo Jose on 04-19-2025 Monocytes/100 WBC (Bld) 5.7 % 0-10 [facility] Mucus LM Ql (Urine sed)Order ed By: Nancy Henson on 04-19-2025 Mucus Ql (Urine sed) 0 SEEN /hpf [facility] Natriuretic peptide.B prohor katja N-Terminal [Mass/volume] in Serum or PlasmaOrdered By: Nancy Henson on 04-19-2025 Natriuretic peptide.B prohormone N-Terminal [Mass/Vol] 67750 pg/mL High <1800 [facility] Natriuretic peptide.B prohor katja N-Terminal [Mass/volume] in Serum or PlasmaOrdered By: Arnulfo Jose on 04-19-2025 Natriuretic peptide.B prohormone N-Terminal [Mass/Vol] 44066 pg/mL High <1800 [facility] Neutrophil percentageOrdered By: Arnulfo Jose on 04-19-2025 Neutrophils/100 WBC (Bld) 82.3 % High 47-70 [facility] Nitrite Test strip Ql (U)Ord ered By: Nancy Henson on 04-19-2025 Nitrite Ql (U) Negative Negative [facility] No Panel InformationOrdered By: Nancy Henson on 04-19-2025 ART [facility] L Radial [facility] Not entered [facility] AIRVO [facility] AIRVO 50L 50% [facility] ART [facility] L Radial [facility] Not entered [facility] HFNC [facility] Phosphoruson 04-19-2025 Phosphate [Mass/Vol] 4.0 mg/dL Normal 2.7-4.5 [facility] Comment on above: Performed By: #### L 501.9985, L100.0100, L501.2300 ####[facility] [address] [place], [address] Platelet countOrdered By: Stephenie Jose on 04-19-2025 Platelets (Bld) [#/Vol] 289 10*3/uL 150-450 [facility] Potassium measurement (mass/ volume)Ordered By: Arnulfo Jose on 04-19-2025 Potassium (Unsp spec) [Mass/Vol] 5.9 mmol/L High 3.3-5.1 [facility] Procalcitonin [Mass/volume] in Serum or Plasma by ImmunoassayOrdered By: Arnulfo Jose on 04-19-2025 Procalcitonin IA [Mass/Vol] 0.10 ng/mL <0.11 [facility] Protein Test strip Ql (U)Ord ered By: Nancy Henson on 04-19-2025 Protein Ql (U) 30 mg/dl High Negative [facility] RBC Auto (Bld) [#/Vol]Ordere d By: Arnulfo Jose on 04-19-2025 RBC (Bld) [#/Vol] 2.93 10*6/uL Low 4.6-6.2 [facility] Serum creatinine measurement (mass/volume)Ordered By: Arnulfo Jose on 04-19-2025 Creatinine [Mass/Vol] 2.73 mg/dL High 0.70-1.20 [facility] Serum glucose measurement (m ass/volume)Ordered By: Arnulfo Jose on 04-19-2025 Glucose [Mass/Vol] 406 mg/dL High 70-99 [facility] Serum or plasma calcium nikkie urement (mass/volume)Ordered By: Arnulfo Jose on 04-19-2025 Calcium [Mass/Vol] 8.6 mg/dL 7.6-11.0 [facility] Serum or plasma urea nitroge n measurement (mass/volume)Ordered By: Arnulfo Jose on 04-19-2025 Urea nitrogen [Mass/Vol] 65 mg/dL High 4-19 [facility] Sodium levelOrdered By: Tyree Jose on 04-19-2025 Sodium [Moles/Vol] 136 mmol/L 133-145 [facility] Squamous epithelial cells de tection in urine sediment by light microscopyOrdered By: Nancy Henson on 04-19-2025 Epithelial cells.squamous LM Ql (Urine sed) 0 SEEN /hpf 0-5 [facility] TSH DL <= 0.005 mIU/L QnOrde red By: Nancy Henson on 04-19-2025 TSH Qn 1.730 uIU/mL 0.300-4.200 [facility] Thyroid Stim Hormone (TSH)on 04-19-2025 TSH 1.730 uIU/mL Normal 0.300-4.200 [facility] Comment on above: Performed By: #### L 503.7505, L501.9520, L500.4050 ####[facility] [address] [place], [address] Total carbon dioxide measure mentOrdered By: Nancy Henson on 04-19-2025 CO2 [Moles/Vol] 23 mmol/L [facility] CO2 [Moles/Vol] 23 mmol/L [facility] Troponin T.cardiac [Mass/vol ume] in Serum or Plasma by High sensitivity methodOrdered By: Nancy Henson on 04-19-2025 Troponin T.cardiac High sensitivity method [Mass/Vol] 350 ng/L High <22 [facility] Troponin T.cardiac High sensitivity method [Mass/Vol] 385 ng/L High <22 [facility] Troponin T.cardiac High sensitivity method [Mass/Vol] 394 ng/L High <22 [facility] Type AND Screenon 04-19-2025 Ab SCREEN GEL Negative Normal [facility] Comment on above: Order Comment: A Performed By: #### B TS ####[facility] [address] [place], [address] Urinalysis, Completeon 04-19 BACTERIA 0 SEEN Normal None Seen [facility] Comment on above: Order Comment: CLEAN CATCH Performed By: #### L 400.0001 ####[facility] [address] [place], [address] EPI,SQUAMOUS 0 SEEN Normal 0-5 [facility] Comment on above: Order Comment: CLEAN CATCH Performed By: #### L 400.0001 ####[facility] [address] [place], [address] Mucus Ql (Urine sed) 0 SEEN Normal [facility] Comment on above: Order Comment: CLEAN CATCH Performed By: #### L 400.0001 ####[facility] [address] [place], [address] RBC 0 SEEN Normal 0-5 [facility] Comment on above: Order Comment: CLEAN CATCH Performed By: #### L 400.0001 ####[facility] [address] [place], [address] WBC 0 SEEN Normal 0-5 [facility] Comment on above: Order Comment: CLEAN CATCH Performed By: #### L 400.0001 ####[facility] [address] [place], [address] Urine clarityOrdered By: Saravanan Henson on 04-19-2025 Clarity (U) Clear Clear [facility] Urine color determinationOrd ered By: Nancy Henson on 04-19-2025 Color (U) Yellow Yellow [facility] Urine glucose detectionOrder ed By: Nancy Henson on 04-19-2025 Glucose Ql (U) 250 mg/dl High Normal [facility] Urine leukocyte esterase det ection by dipstickOrdered By: Nancy Henson on 04-19-2025 Leukocyte esterase Test strip Ql (U) Negative Negative [facility] Urine pHOrdered By: Nancy brooks on 04-19-2025 pH (U) 6.0 [pH] 5.0 - 8.0 [facility] Urine sediment bacteria coun t by microscopy (number/high power field)Ordered By: Nancy Henson on 04-19-2025 Bacteria LM.HPF (Urine sed) [#/Area] 0 /[HPF] None Seen [facility] Urine specific gravity measu rementOrdered By: Nancy Henson on 04-19-2025 Specific gravity (U) [Rel density] 1.015 1.002-1.030 [facility] Urine urobilinogen measureme ntOrdered By: Nancy Henson on 04-19-2025 Urobilinogen Ql (U) Normal mg/dl Normal [facility] Venous Duplex US - Karin Extre mon 04-19-2025 Venous Duplex US - Karin Extrem Normal [facility] Venous duplex ultrasound rep ortOrdered By: Oracio Payan on 04-19-2025 US Vein [facility] Other Phone: White blood cell (WBC) count Ordered By: Arnulfo Jose on 04-19-2025 WBC (Bld) [#/Vol] 14.0 10*3/uL High 4.4-11.0 [facility] White blood cell countOrdere d By: Nancy Henson on 04-19-2025 White blood cell count 0 SEEN /hpf 0-5 [facility] CBC W/Diff, Automatedon 04-01 Absolute Neut Normal 2.0-7.7 [facility] Comment on above: Result Comment: Canc elled via OM: Order cancelled - Patient discharged Performed By: #### L 100.0100 ####[facility] [address] [place], [address] HCT Normal 40-54 [facility] Comment on above: Result Comment: Canc elled via OM: Order cancelled - Patient discharged Performed By: #### L 100.0100 ####[facility] [address] [place], [address] HGB Normal 13.0-16.5 [facility] Comment on above: Result Comment: Canc elled via OM: Order cancelled - Patient discharged Performed By: #### L 100.0100 ####[facility] [address] [place], [address] MCH Normal 27.0-32.0 [facility] Comment on above: Result Comment: Canc elled via OM: Order cancelled - Patient discharged Performed By: #### L 100.0100 ####[facility] [address] [place], [address] MCHC Normal 32-36 [facility] Comment on above: Result Comment: Canc elled via OM: Order cancelled - Patient discharged Performed By: #### L 100.0100 ####[facility] [address] [place], [address] MCV Normal 80-94 [facility] Comment on above: Result Comment: Canc elled via OM: Order cancelled - Patient discharged Performed By: #### L 100.0100 ####[facility] [address] [place], [address] NEUT% Normal 47-70 [facility] Comment on above: Result Comment: Canc elled via OM: Order cancelled - Patient discharged Performed By: #### L 100.0100 ####[facility] [address] [place], [address] PLT Normal 150-450 [facility] Comment on above: Result Comment: Canc elled via OM: Order cancelled - Patient discharged Performed By: #### L 100.0100 ####[facility] [address] [place], [address] RBC Normal 4.6-6.2 [facility] Comment on above: Result Comment: Canc elled via OM: Order cancelled - Patient discharged Performed By: #### L 100.0100 ####[facility] [address] [place], [address] RDW CV Normal 11.6-14.6 [facility] Comment on above: Result Comment: Canc elled via OM: Order cancelled - Patient discharged Performed By: #### L 100.0100 ####[facility] [address] [place], [address] RDW SD Normal 35.1-43.9 [facility] Comment on above: Result Comment: Canc elled via OM: Order cancelled - Patient discharged Performed By: #### L 100.0100 ####[facility] [address] [place], [address] WBC Normal 4.4-11.0 [facility] Comment on above: Result Comment: Canc elled via OM: Order cancelled - Patient discharged Performed By: #### L 100.0100 ####[facility] [address] [place], [address] Absolute lymphocyte countOrd ered By: Grace Arnold on 04-10-2025 Lymphocytes Auto (Unsp spec) [#/Vol] 1.09 10*3/uL 0.83-4.51 [facility] Absolute neutrophil countOrd ered By: Grace Arnold on 04-10-2025 Neutrophils (Bld) [#/Vol] 9.6 10*3/uL High 2.0-7.7 [facility] Anion gap in Serum or Plasma Ordered By: Grace Arnold on 04-10-2025 Anion gap [Moles/Vol] 13 mmol/L 5-15 [facility] Automated lymphocyte count a s percentage of total leukocytesOrdered By: Grace Arnold on 04-10-2025 Lymphocytes/100 WBC Auto (Unsp spec) 9.4 % Low 19-41 [facility] BUN/creatinine ratioOrdered By: Grace Arnold on 04-10-2025 Urea nitrogen/Creatinine [Mass ratio] 22.8 mg/mg High - [facility] Basic Metabolic Profile (BMP )on 04-10-2025 BUN/CRE 22.8 RATIO High - [facility] Comment on above: Performed By: #### L 500.2500 ####[facility] [address] [place], [address] Calcium [Mass/Vol] 8.5 mg/dL Normal 7.6-11.0 [facility] Comment on above: Performed By: #### L 500.2500 ####[facility] [address] [place], [address] Chloride [Moles/Vol] 101 mmol/L Normal 98-108 [facility] Comment on above: Performed By: #### L 500.2500 ####[facility] [address] [place], [address] CO2 [Moles/Vol] 22.6 mmol/L Normal 21.0-32.0 [facility] Comment on above: Performed By: #### L 500.2500 ####[facility] [address] [place], [address] Creatinine [Mass/Vol] 3.48 mg/dL High 0.70-1.20 [facility] Comment on above: Performed By: #### L 500.2500 ####[facility] [address] [place], [address] ECRCL 15.24 ml/min Low 50-250 [facility] Comment on above: Performed By: #### L 500.2500 ####[facility] [address] [place], [address] GAP 13 Normal 5-15 [facility] Comment on above: Performed By: #### L 500.2500 ####[facility] [address] [place], [address] GFR/1.73 sq M.predicted among non-blacks MDRD (S/P/Bld) [Vol rate/Area] 17 mL/min/{1.73_m2} Low >60 [facility] Comment on above: Result Comment: mL/m in/1.73m2 CKD-EPI Creatinine Equation (2020) Performed By: #### L 500.2500 ####[facility] [address] [place], [address] Glucose [Mass/Vol] 287 mg/dL High 70-99 [facility] Comment on above: Performed By: #### L 500.2500 ####[facility] [address] [place], [address] Potassium [Moles/Vol] 4.2 mmol/L Normal 3.3-5.1 [facility] Comment on above: Performed By: #### L 500.2500 ####[facility] [address] [place], [address] Sodium [Moles/Vol] 137 mmol/L Normal 133-145 [facility] Comment on above: Performed By: #### L 500.2500 ####[facility] [address] [place], [address] Urea nitrogen [Mass/Vol] 79 mg/dL High 4-19 [facility] Comment on above: Performed By: #### L 500.2500 ####[facility] [address] [place], [address] Basophil percentageOrdered B y: Graceanabelle Arnold on 04-10-2025 Basophils/100 WBC (Bld) 0.1 % 0-1 [facility] Bedside Glucoseon 04-10-2025 FINGERSTICK GLU 223 mg/dL High 74-106 [facility] Comment on above: Result Comment: ADITI ESCOBEDO OF PATIENT CARE PER NURSING PROTOCOL Performed By: #### L 501.080 ####[facility] [address] [place], [address] FINGERSTICK GLU 274 mg/dL High 74-106 [facility] Comment on above: Result Comment: ADITI ESCOBEDO OF PATIENT CARE PER NURSING PROTOCOL Performed By: #### L 501.080 ####[facility] [address] [place], [address] CBC W/Diff, Automatedon 06-1 0-2025 Absolute Lymph 1.09 X10 3/uL Normal 0.83-4.51 [facility] Comment on above: Performed By: #### L 100.0100 ####[facility] [address] [place], [address] Absolute Neut 9.6 X10 3/uL High 2.0-7.7 [facility] Comment on above: Performed By: #### L 100.0100 ####[facility] [address] [place], [address] Basophils/100 WBC (Bld) 0.1 % Normal 0-1 [facility] Comment on above: Performed By: #### L 100.0100 ####[facility] [address] [place], [address] Eosinophils/100 WBC (Bld) 0.1 % Normal 0-5 [facility] Comment on above: Performed By: #### L 100.0100 ####[facility] [address] [place], [address] Erythrocyte distribution width (RBC) [Ratio] 13.6 % Normal 11.6-14.6 [facility] Comment on above: Performed By: #### L 100.0100 ####[facility] [address] [place], [address] Hematocrit (Bld) [Volume fraction] 26.0 % Low 40-54 [facility] Comment on above: Performed By: #### L 100.0100 ####[facility] [address] [place], [address] Hemoglobin (Bld) [Mass/Vol] 8.6 g/dL Low 13.0-16.5 [facility] Comment on above: Performed By: #### L 100.0100 ####[facility] [address] [place], [address] IG% 0.800 Normal 0.0-0.9 [facility] Comment on above: Result Comment: IG% - Immature Granulocytes (promyelocytes, myelocytes andmetamyelocytes) > 1% indicates that a LEFT SHIFT is Present. Performed By: #### L 100.0100 ####[facility] [address] [place], [address] Lymphocytes/100 WBC (Bld) 9.4 % Low 19-41 [facility] Comment on above: Performed By: #### L 100.0100 ####[facility] [address] [place], [address] MCH (RBC) [Entitic mass] 30.2 pg Normal 27.0-32.0 [facility] Comment on above: Performed By: #### L 100.0100 ####[facility] [address] [place], [address] MCHC (RBC) [Mass/Vol] 33.1 g/dL Normal 32-36 [facility] Comment on above: Performed By: #### L 100.0100 ####[facility] [address] [place], [address] MCV (RBC) [Entitic vol] 91.2 fL Normal 80-94 [facility] Comment on above: Performed By: #### L 100.0100 ####[facility] [address] [place], [address] Monocytes/100 WBC (Bld) 7.0 % Normal 0-10 [facility] Comment on above: Performed By: #### L 100.0100 ####[facility] [address] [place], [address] Neutrophils/100 WBC (Bld) 82.6 % High 47-70 [facility] Comment on above: Performed By: #### L 100.0100 ####[facility] [address] [place], [address] Nucleated RBC (Bld) [#/Vol] 0 10*3/uL Normal 0-5 [facility] Comment on above: Performed By: #### L 100.0100 ####[facility] [address] [place], [address] Platelet mean volume (Bld) [Entitic vol] 12.4 fL High 6.2-12.0 [facility] Comment on above: Performed By: #### L 100.0100 ####[facility] [address] [place], [address] Platelets (Bld) [#/Vol] 193 10*3/uL Normal 150-450 [facility] Comment on above: Performed By: #### L 100.0100 ####[facility] [address] [place], [address] RBC (Bld) [#/Vol] 2.85 10*6/uL Low 4.6-6.2 [facility] Comment on above: Performed By: #### L 100.0100 ####[facility] [address] [place], [address] RDW SD 45.1 fl High 35.1-43.9 [facility] Comment on above: Performed By: #### L 100.0100 ####[facility] [address] [place], [address] WBC (Bld) [#/Vol] 11.6 10*3/uL High 4.4-11.0 [facility] Comment on above: Performed By: #### L 100.0100 ####[facility] [address] [place], [address] Carbon dioxide, total [Moles /volume] in Central venous bloodOrdered By: Grace Arnold on 04-10-2025 CO2 [Moles/Vol] 22.6 mmol/L 21.0-32.0 [facility] Chloride assayOrdered By: Na na Florentino on 04-10-2025 Chloride [Moles/Vol] 101 mmol/L 98-108 [facility] Discharge Instructionon 04-01 Discharge Instruction Normal [facility] Eosinophil percentageOrdered By: Grace Arnold on 04-10-2025 Eosinophils/100 WBC (Bld) 0.1 % 0-5 [facility] Erythrocyte distribution wid th ratioOrdered By: Grace Arnold on 04-10-2025 Erythrocyte distribution width (RBC) [Ratio] 13.6 % 11.6-14.6 [facility] Erythrocyte distribution wid th standard deviationOrdered By: Grace Arnold on 04-10-2025 Erythrocyte distribution width (RBC) [Ratio] 45.1 fl High 35.1-43.9 [facility] Glomerular filtration rate ( GFR) estimation/1.73 sq m using serum, plasma, or whole bOrdered By: Grace Arnold on 04-10-2025 GFR/1.73 sq M.predicted among non-blacks MDRD (S/P/Bld) [Vol rate/Area] 17 mL/min/{1.73_m2} Low >60 [facility] Comment on above: mL/min/1.73m2 CKD-EP I Creatinine Equation (2020) [facility]dered By: Grace Arnold on 04-10-2025 Glucose [Mass/Vol] 223 mg/dL High 74-106 [facility] Comment on above: MANAGEMENT OF PATIEN T CARE PER NURSING PROTOCOL Hematocrit Auto (Bld) [Volum e fraction]Ordered By: Grace Arnold on 04-10-2025 Hematocrit (Bld) [Volume fraction] 26.0 % Low 40-54 [facility] Hemoglobin measurementOrdere d By: Grace Arnold on 04-10-2025 Hemoglobin (Bld) [Mass/Vol] 8.6 g/dL Low 13.0-16.5 [facility] Immature granulocytes/100 WB C Auto (Bld)Ordered By: Grace Arnold on 04-10-2025 Immature granulocytes/100 WBC (Bld) 0.800 % 0.0-0.9 [facility] Comment on above: IG% - Immature Granu locytes (promyelocytes, myelocytes and metamyelocytes) > 1% indicates that a LEFT SHIFT is Present. MCV (mean corpuscular volume ) determinationOrdered By: Grace Arnold on 04-10-2025 MCV (RBC) [Entitic vol] 91.2 fL 80-94 [facility] Mean corpuscular hemoglobin (MCH) determinationOrdered By: Grace Arnold on 04-10-2025 MCH (RBC) [Entitic mass] 30.2 pg 27.0-32.0 [facility] Mean corpuscular hemoglobin concentration (MCHC) determinationOrdered By: Grace Arnold on 04-10-2025 MCHC (RBC) [Mass/Vol] 33.1 g/dL 32-36 [facility] Mean platelet volume determi nationOrdered By: Grace Arnold on 04-10-2025 Platelet mean volume (Bld) [Entitic vol] 12.4 fL High 6.2-12.0 [facility] Monocyte percentageOrdered B y: Grace Arnold on 04-10-2025 Monocytes/100 WBC (Bld) 7.0 % 0-10 [facility] Neutrophil percentageOrdered By: Grace Arnold on 04-10-2025 Neutrophils/100 WBC (Bld) 82.6 % High 47-70 [facility] Nucleated red blood cell per centageOrdered By: Grace Arnold on 04-10-2025 Nucleated RBC/100 WBC (Bld) [Ratio] 0 % 0-5 [facility] Platelet countOrdered By: Kesha Arnold on 04-10-2025 Platelets (Bld) [#/Vol] 193 10*3/uL 150-450 [facility] Potassium measurement (mass/ volume)Ordered By: Grace Arnold on 04-10-2025 Potassium (Unsp spec) [Mass/Vol] 4.2 mmol/L 3.3-5.1 [facility] RBC Auto (Bld) [#/Vol]Ordere d By: Graceanabelle Arnold on 04-10-2025 RBC (Bld) [#/Vol] 2.85 10*6/uL Low 4.6-6.2 [facility] Serum creatinine measurement (mass/volume)Ordered By: Grace Arnold on 04-10-2025 Creatinine [Mass/Vol] 3.48 mg/dL High 0.70-1.20 [facility] Serum glucose measurement (m ass/volume)Ordered By: Grace Arnold on 04-10-2025 Glucose [Mass/Vol] 287 mg/dL High 70-99 [facility] Serum or plasma calcium nikkie urement (mass/volume)Ordered By: Grace Arnold on 04-10-2025 Calcium [Mass/Vol] 8.5 mg/dL 7.6-11.0 [facility] Serum or plasma urea nitroge n measurement (mass/volume)Ordered By: Grace Arnold on 04-10-2025 Urea nitrogen [Mass/Vol] 79 mg/dL High 4-19 [facility] Sodium levelOrdered By: Grace Arnold on 04-10-2025 Sodium [Moles/Vol] 137 mmol/L 133-145 [facility] White blood cell (WBC) count Ordered By: Grace Arnold on 04-10-2025 WBC (Bld) [#/Vol] 11.6 10*3/uL High 4.4-11.0 [facility] ANCAon 04-09-2025 Atypical pANCA <1:20 Normal Neg:<1:20 [facility] Comment on above: Result Comment: The atypical pANCA pattern has been observed in asignificant percentage of patients with ulcerative colitis,primary sclerosing cholangitis and autoimmune hepatitis.Performed at: - [facility] [address] [id number] Director: Todd Anderson PhD, Phone: [phone] Performed By: #### L 2030.4497 ####[facility] [address] [place], [place], [id number] Cytoplasmic Ab <1:20 Normal Neg:<1:20 [facility] Comment on above: Performed By: #### L 3300.1200 ####[facility] [address] [place], [address] Perinuclear Ab. <1:20 Normal Neg:<1:20 [facility] Comment on above: Result Comment: The presence of positive fluorescence exhibiting P-ANCA orC-ANCA patterns alone is not specific for the diagnosis ofWegener's Granulomatosis (WG) or microscopic polyangiitis.Decisions about treatment should not be based solely onANCA IFA results. The [employer] Consensusrecommends follow up testing of positive sera with both OR-3 and MPO-ANCA enzyme immunoassays. As many as 5% serumsamples are positive only by EIA. Ref. AM J Clin Lrnoec7351;111:507-513. Performed By: #### L 3300.1200 ####[facility] [address] [place], [address] Anti-Glomerular Basement Mem bon 04-09-2025 ANTI-GLOM BM Ab < 0.2 Normal 0.0-0.9 [facility] Comment on above: Result Comment: Perf ormed at: - [facility] [id number] Director: Mignon Taylor MD, Phone: [phone] Performed By: #### L 8907.8993 ####[facility] [address] [place], [address] Basic Metabolic Profile (BMP )on 04-09-2025 BUN/CRE 21.8 RATIO High 10-20 [facility] Comment on above: Performed By: #### L 500.2500 ####[facility] [address] [place], [address] Calcium [Mass/Vol] 8.5 mg/dL Normal 7.6-11.0 [facility] Comment on above: Performed By: #### L 500.2500 ####[facility] [address] [place], [address] Chloride [Moles/Vol] 104 mmol/L Normal 98-108 [facility] Comment on above: Performed By: #### L 500.2500 ####[facility] [address] [place], [address] CO2 [Moles/Vol] 21.6 mmol/L Normal 21.0-32.0 [facility] Comment on above: Performed By: #### L 500.2500 ####[facility] [address] [place], [address] Creatinine [Mass/Vol] 3.42 mg/dL High 0.70-1.20 [facility] Comment on above: Performed By: #### L 500.2500 ####[facility] [address] [place], [address] ECRCL 15.55 ml/min Low 50-250 [facility] Comment on above: Performed By: #### L 500.2500 ####[facility] [address] [place], [address] GAP 15 Normal 5-15 [facility] Comment on above: Performed By: #### L 500.2500 ####[facility] [address] [place], [address] GFR/1.73 sq M.predicted among non-blacks MDRD (S/P/Bld) [Vol rate/Area] 17 mL/min/{1.73_m2} Low >60 [facility] Comment on above: Result Comment: mL/m in/1.73m2 CKD-EPI Creatinine Equation (2020) Performed By: #### L 500.2500 ####[facility] [address] [place], [address] Glucose [Mass/Vol] 146 mg/dL High 70-99 [facility] Comment on above: Performed By: #### L 500.2500 ####[facility] [address] [place], [address] Potassium [Moles/Vol] 3.4 mmol/L Normal 3.3-5.1 [facility] Comment on above: Performed By: #### L 500.2500 ####[facility] [address] [place], [address] Sodium [Moles/Vol] 140 mmol/L Normal 133-145 [facility] Comment on above: Performed By: #### L 500.2500 ####[facility] [address] [place], [address] Urea nitrogen [Mass/Vol] 74 mg/dL High 4-19 [facility] Comment on above: Performed By: #### L 500.2500 ####[facility] [address] [place], [address] Bedside Glucoseon 04-09-2025 FINGERSTICK GLU 423 mg/dL High 74-106 [facility] Comment on above: Result Comment: ADITI GEMENT OF PATIENT CARE PER NURSING PROTOCOL Performed By: #### L 501.080 ####[facility] [address] [place], [address] FINGERSTICK GLU 217 mg/dL High 74-106 [facility] Comment on above: Result Comment: ADITI GEMENT OF PATIENT CARE PER NURSING PROTOCOL Performed By: #### L 501.080 ####[facility] [address] [place], [address] FINGERSTICK GLU 146 mg/dL High 74-106 [facility] Comment on above: Result Comment: ADITI GEMENT OF PATIENT CARE PER NURSING PROTOCOL Performed By: #### L 501.080 ####[facility] [address] [place], [address] FINGERSTICK GLU 141 mg/dL High 74-106 [facility] Comment on above: Result Comment: ADITI GEMENT OF PATIENT CARE PER NURSING PROTOCOL Performed By: #### L 501.080 ####[facility] [address] [place], [address] FINGERSTICK GLU 475 mg/dL Invalid Interpretation Code 74-106 [facility] Comment on above: Result Comment: ADITI GEMENT OF PATIENT CARE PER NURSING PROTOCOL Performed By: #### L 501.080 ####[facility] [address] [place], [address] FINGERSTICK GLU 312 mg/dL High 74-106 [facility] Comment on above: Result Comment: ADITI GEMENT OF PATIENT CARE PER NURSING PROTOCOL Performed By: #### L 501.080 ####[facility] [address] [place], [address] FINGERSTICK GLU 443 mg/dL High 74-106 [facility] Comment on above: Result Comment: ADITI GEMENT OF PATIENT CARE PER NURSING PROTOCOL Performed By: #### L 501.080 ####[facility] [address] [place], [address] CBC W/Diff, Automatedon 06-0 9-2025 Absolute Lymph 1.84 X10 3/uL Normal 0.83-4.51 [facility] Comment on above: Performed By: #### L 100.0100 ####[facility] [address] [place], [address] Absolute Neut 10.1 X10 3/uL High 2.0-7.7 [facility] Comment on above: Performed By: #### L 100.0100 ####[facility] [address] [place], [address] Basophils/100 WBC (Bld) 0.1 % Normal 0-1 [facility] Comment on above: Performed By: #### L 100.0100 ####[facility] [address] [place], [address] Eosinophils/100 WBC (Bld) 0.1 % Normal 0-5 [facility] Comment on above: Performed By: #### L 100.0100 ####[facility] [address] [place], [address] Erythrocyte distribution width (RBC) [Ratio] 14.0 % Normal 11.6-14.6 [facility] Comment on above: Performed By: #### L 100.0100 ####[facility] [address] [place], [address] Hematocrit (Bld) [Volume fraction] 25.5 % Low 40-54 [facility] Comment on above: Performed By: #### L 100.0100 ####[facility] [address] [place], [address] Hemoglobin (Bld) [Mass/Vol] 8.7 g/dL Low 13.0-16.5 [facility] Comment on above: Performed By: #### L 100.0100 ####[facility] [address] [place], [address] IG% 0.700 Normal 0.0-0.9 [facility] Comment on above: Result Comment: IG% - Immature Granulocytes (promyelocytes, myelocytes andmetamyelocytes) > 1% indicates that a LEFT SHIFT is Present. Performed By: #### L 100.0100 ####[facility] [address] [place], [address] Lymphocytes/100 WBC (Bld) 14.1 % Low 19-41 [facility] Comment on above: Performed By: #### L 100.0100 ####[facility] [address] [place], [address] MCH (RBC) [Entitic mass] 30.2 pg Normal 27.0-32.0 [facility] Comment on above: Performed By: #### L 100.0100 ####[facility] [address] [place], [address] MCHC (RBC) [Mass/Vol] 34.1 g/dL Normal 32-36 [facility] Comment on above: Performed By: #### L 100.0100 ####[facility] [address] [place], [address] MCV (RBC) [Entitic vol] 88.5 fL Normal 80-94 [facility] Comment on above: Performed By: #### L 100.0100 ####[facility] [address] [place], [address] Monocytes/100 WBC (Bld) 7.4 % Normal 0-10 [facility] Comment on above: Performed By: #### L 100.0100 ####[facility] [address] [place], [address] Neutrophils/100 WBC (Bld) 77.6 % High 47-70 [facility] Comment on above: Performed By: #### L 100.0100 ####[facility] [address] [place], [address] Nucleated RBC (Bld) [#/Vol] 0 10*3/uL Normal 0-5 [facility] Comment on above: Performed By: #### L 100.0100 ####[facility] [address] [place], [address] Platelet mean volume (Bld) [Entitic vol] 12.0 fL Normal 6.2-12.0 [facility] Comment on above: Performed By: #### L 100.0100 ####[facility] [address] [place], [address] Platelets (Bld) [#/Vol] 191 10*3/uL Normal 150-450 [facility] Comment on above: Performed By: #### L 100.0100 ####[facility] [address] [place], [address] RBC (Bld) [#/Vol] 2.88 10*6/uL Low 4.6-6.2 [facility] Comment on above: Performed By: #### L 100.0100 ####[facility] [address] [place], [address] RDW SD 45.6 fl High 35.1-43.9 [facility] Comment on above: Performed By: #### L 100.0100 ####[facility] [address] [place], [address] WBC (Bld) [#/Vol] 13.0 10*3/uL High 4.4-11.0 [facility] Comment on above: Performed By: #### L 100.0100 ####[facility] [address] [place], [address] Electrocardiogram reportOrde red By: Barbie Martin on 04-09-2025 EKG study [facility] [address] [place] [address] 12 Lead EKG 04/04/25 2112 MR#: [id number] Acct: [id number] Name: ENOC ARMANDO Rep #:[id number] : 1945 79 From: Barbie black MD Attending Dr: Dr. Grace Arnold MD Status: ADM IN Ordering Dr: Grace Arnold MD Date: 04/04/25 Location: U Sex: M C Admitted: 04/03/25 [...] IS UNCONFIRMED Confirmed by VERONICA URIBE, MINERVA ([id number]), film editor supervisor BLANCO BOCANEGRA ([id number]) 04/09/2025 7:17:16 AM Referred By: Confirmed By: MINERVA MARTIN MD 04/09/25716 Date _ Barbie Martin MD CC: Dr. Ryley Jeter MD; Dr. Grace Arnold MD ~ Signed [facility] Work Phone: EKG study [facility] [address] [place] [address] 12 Lead EKG 04/04/252111 MR#: [id number] Acct: [id number] Name: ENOC ARMANDO Rep #:[id number] : 1945 79 From: Barbie black MD [...] UNCONFIRMED Confirmed by VERONICA URIBE, MINERVA ([id number]), film editor supervisor BLANCO BOCANEGRA ([id number]) on04/09/2025 7:17:37 AM Referred By: Confirmed By: MINERVA MARTIN MD 04/09/25716 Date _ Barbie Martin MD CC: Dr. Ryley Jeter MD; Dr. Grace Arnold MD ~ Signed [facility] Work Phone: EKG study [facility] [address] [place] [address] 12 Lead EKG 04/04/25 210 MR#: [id number] Acct: [id number] Name: ENOC ARMANDO Rep #:[id number] : 1945 79 From: Barbie black MD [...] Left ventricular hypertrophy with repolarization abnormality ( Ballard product ) Cannot rule out Septal infarct , age undetermined Abnormal ECG No previous ECGs available Confirmed by VERONICA URIBE, MINEVRA ([id number]), film editor supervisor BLANCO BOCANEGRA ([id number]) on04/09/2025 7:17:54 AM Referred By: Confirmed By: MINERVA MARTIN MD 04/09/25 0717 Date _ Barbie Martin MD CC: Dr. Ryley Jeter MD; Dr. Grace Arnold MD ~ Signed [facility] Work Phone: EKG study [facility] [address] [place] [address] 12 Lead EKG 04/03/25 0005 MR#: [id number] Acct: [id number] Name: ENOC ARMANDO Rep #:[id number] : 1945 79 From: Barbie black MD Attending Dr: Dr. Jose Moore MD Status: ADM IN Ordering Dr: John Brandon DO Date: 0 04/03/25 Location: [facility] Sex: M C [...] ECG Confirmed by VERONICA URIBE, MINERVA ([id number]), film editor supervisor BLANCO BOCANEGRA ([id number]) on04/09/2025 7:03:07 AM Referred By: Confirmed By: MINERVA MARTIN MD 04/09/25 0703 Date _ Barbie Martin MD CC: Dr. Ryley Jeter MD; Dr. Jose Moore MD; Dr. John Brandon DO ~ Signed [facility] Work Phone: EKG study [facility] [address] [place] [address] 12 Lead EKG 04/05/25 1204 MR#: [id number] Acct: [id number] Name: ENOC ARMANDO Rep #:[id number] : 1945 79 From: Barbie black MD Attending Dr: Dr. Jose Moore MD Status: ADM IN Ordering Dr: Grace Arnold MD Date: 04/05/25 Location: [facility] Sex: M C [...] IS UNCONFIRMED Confirmed by VERONICA URIBE, MINERVA ([id number]), film editor supervisor BLANCO BOCANEGRA ([id number]) on04/09/2025 6:57:50 AM Referred By: FLORENTINO Confirmed By: MINERVA MARTIN MD 04/09/25 0657 Date _ Barbie Martin MD CC: Dr. Ryley Jeter MD; Dr. Grace Arnold MD; Dr. Jose Moore MD ~ Signed [facility] Work Phone: Gram Stainon 04-09-2025 GS Acceptable Specimen? Yes (<25 Epithelial cells per/lpf) Gram Stain 2+ Yeast Like Organisms 2+ Gram positive cocci 1+ Gram positive rods Normal [facility] Comment on above: Performed By: #### M 100.2400, M100.2000 ####[facility] [address] [place], [place], [address] Stool Occult Blood iFOBon STOB Positive Normal [facility] Comment on above: Performed By: #### M 100.7900 ####[facility] [address] [place], [place], [address] Stool gastrointestinal hemog lobin detection by immunologic methodOrdered By: Jose Moore on 04-09-2025 Lower GI hemoglobin IA Ql (Stl) Positive Abnormal [facility] BRCon 04-08-2025 RC Normal Neg [facility] Comment on above: Result Comment: [id number] AP RC TRANSFUSED 04/08/25 1032 Performed By: #### B RC, BTS ####[facility] [address] [place], [place], [address] Basic Metabolic Profile (BMP )on 04-08-2025 BUN/CRE 20.8 RATIO High 10-20 [facility] Comment on above: Performed By: #### L 500.2500 ####[facility] [address] [place], [address] Calcium [Mass/Vol] 8.5 mg/dL Normal 7.6-11.0 [facility] Comment on above: Performed By: #### L 500.2500 ####[facility] [address] [place], [address] Chloride [Moles/Vol] 100 mmol/L Normal 98-108 [facility] Comment on above: Performed By: #### L 500.2500 ####[facility] [address] [place], [address] CO2 [Moles/Vol] 20.3 mmol/L Low 21.0-32.0 [facility] Comment on above: Performed By: #### L 500.2500 ####[facility] [address] [place], [address] Creatinine [Mass/Vol] 2.97 mg/dL High 0.70-1.20 [facility] Comment on above: Performed By: #### L 500.2500 ####[facility] [address] [place], [address] ECRCL 16.83 ml/min Low 50-250 [facility] Comment on above: Performed By: #### L 500.2500 ####[facility] [address] [place], [address] GAP 16 High 5-15 [facility] Comment on above: Performed By: #### L 500.2500 ####[facility] [address] [place], [address] GFR/1.73 sq M.predicted among non-blacks MDRD (S/P/Bld) [Vol rate/Area] 20 mL/min/{1.73_m2} Low >60 [facility] Comment on above: Result Comment: mL/m in/1.73m2 CKD-EPI Creatinine Equation (2020) Performed By: #### L 500.2500 ####[facility] [address] [place], [address] Glucose [Mass/Vol] 395 mg/dL High 70-99 [facility] Comment on above: Performed By: #### L 500.2500 ####[facility] [address] [place], [address] Potassium [Moles/Vol] 4.3 mmol/L Normal 3.3-5.1 [facility] Comment on above: Performed By: #### L 500.2500 ####[facility] [address] [place], [address] Sodium [Moles/Vol] 136 mmol/L Normal 133-145 [facility] Comment on above: Performed By: #### L 500.2500 ####[facility] [address] [place], [address] Urea nitrogen [Mass/Vol] 62 mg/dL High 4-19 [facility] [facility] Comment on above: Performed By: #### L 500.2500 ####[facility] [address] [place], [address] Bedside Glucoseon 04-08-2025 FINGERSTICK GLU 415 mg/dL High 74-106 [facility] Comment on above: Result Comment: ADITI GEMENT OF PATIENT CARE PER NURSING PROTOCOL Performed By: #### L 501.080 ####[facility] [address] [place], [address] FINGERSTICK GLU 420 mg/dL High 74-106 [facility] Comment on above: Result Comment: ADITI GEMENT OF PATIENT CARE PER NURSING PROTOCOL Performed By: #### L 501.080 ####[facility] [address] [place], [address] FINGERSTICK GLU 361 mg/dL High 74-106 [facility] Comment on above: Result Comment: ADITI ESCOBEDO OF PATIENT CARE PER NURSING PROTOCOL Performed By: #### L 501.080 ####[facility] [address] [place], [address] CBC W/Diff, Automatedon 06-0 8-2024 Absolute Lymph 0.63 X10 3/uL Low 0.83-4.51 [facility] Comment on above: Performed By: #### L 100.0100 ####[facility] [address] [place], [address] Absolute Neut 7.6 X10 3/uL Normal 2.0-7.7 [facility] Comment on above: Performed By: #### L 100.0100 ####[facility] [address] [place], [address] Basophils/100 WBC (Bld) 0.0 % Normal 0-1 [facility] Comment on above: Performed By: #### L 100.0100 ####[facility] [address] [place], [address] Eosinophils/100 WBC (Bld) 0.0 % Normal 0-5 [facility] Comment on above: Performed By: #### L 100.0100 ####[facility] [address] [place], [address] Erythrocyte distribution width (RBC) [Ratio] 13.5 % Normal 11.6-14.6 [facility] Comment on above: Performed By: #### L 100.0100 ####[facility] [address] [place], [address] Hematocrit (Bld) [Volume fraction] 21.5 % Low 40-54 [facility] Comment on above: Performed By: #### L 100.0100 ####[facility] [address] [place], [address] Hemoglobin (Bld) [Mass/Vol] 6.9 g/dL Low 13.0-16.5 [facility] Comment on above: Performed By: #### L 100.0100 ####[facility] [address] [place], [address] IG% 0.500 Normal 0.0-0.9 [facility] Comment on above: Result Comment: IG% - Immature Granulocytes (promyelocytes, myelocytes andmetamyelocytes) > 1% indicates that a LEFT SHIFT is Present. Performed By: #### L 100.0100 ####[facility] [address] [place], [address] Lymphocytes/100 WBC (Bld) 7.3 % Low 19-41 [facility] Comment on above: Performed By: #### L 100.0100 ####[facility] [address] [place], [address] MCH (RBC) [Entitic mass] 29.5 pg Normal 27.0-32.0 [facility] Comment on above: Performed By: #### L 100.0100 ####[facility] [address] [place], [address] MCHC (RBC) [Mass/Vol] 32.1 g/dL Normal 32-36 [facility] Comment on above: Performed By: #### L 100.0100 ####[facility] [address] [place], [address] MCV (RBC) [Entitic vol] 91.9 fL Normal 80-94 [facility] Comment on above: Performed By: #### L 100.0100 ####[facility] [address] [place], [address] Monocytes/100 WBC (Bld) 4.2 % Normal 0-10 [facility] Comment on above: Performed By: #### L 100.0100 ####[facility] [address] [place], [address] Neutrophils/100 WBC (Bld) 88.0 % High 47-70 [facility] Comment on above: Performed By: #### L 100.0100 ####[facility] [address] [place], [address] Nucleated RBC (Bld) [#/Vol] 0 10*3/uL Normal 0-5 [facility] Comment on above: Performed By: #### L 100.0100 ####[facility] [address] [place], [address] Platelet mean volume (Bld) [Entitic vol] 12.5 fL High 6.2-12.0 [facility] Comment on above: Performed By: #### L 100.0100 ####[facility] [address] [place], [address] Platelets (Bld) [#/Vol] 176 10*3/uL Normal 150-450 [facility] Comment on above: Performed By: #### L 100.0100 ####[facility] [address] [place], [address] RBC (Bld) [#/Vol] 2.34 10*6/uL Low 4.6-6.2 [facility] Comment on above: Performed By: #### L 100.0100 ####[facility] [address] [place], [address] RDW SD 44.2 fl High 35.1-43.9 [facility] Comment on above: Performed By: #### L 100.0100 ####[facility] [address] [place], [address] WBC (Bld) [#/Vol] 8.6 10*3/uL Normal 4.4-11.0 [facility] Comment on above: Performed By: #### L 100.0100 ####[facility] [address] [place], [address] Culture, Blood (WB)on 2024 CUB No growth in 5 days. Normal [facility] Comment on above: Performed By: #### L 503.6005, M200.1000 ####[facility] [address] [place], [address] Glucoseon 04-08-2025 Glucose [Mass/Vol] 528 mg/dL Invalid Interpretation Code 70-99 [facility] Comment on above: Result Comment: Crit ical Result(s) Called at 2220: by:??NBURNS TO EAFFOLTERResults read back by same. Performed By: #### L 501.0100 ####[facility] [address] [place], [address] Respiratory Cultureon 2024 RESPC Mixed normal respiratory kyler. No Streptococcus pneumoniae, beta-hemolytic Streptococcus or Staphylococcus aureus isolated. [facility] Comment on above: Performed By: #### M 100.2400, M100.2000 ####[facility] [address] [place], [address] Type AND Screenon 04-08-2025 ABO and Rh group Nom (Bld) Blood group A Rh(D) positive [facility] Comment on above: Order Comment: CMV N EG? NNumber of units to transfuse: 1Reason for Ordering Blood: AcuteAre the blood/blood products to be transfused? YIs the patient having/had surgery? Nany Hazel Performed By: #### B HOUSTON, BTS ####[facility] [address] [place], [address] Ab SCREEN GEL Negative [facility] Comment on above: Order Comment: CMV N EG? NNumber of units to transfuse: 1Reason for Ordering Blood: AcuteAre the blood/blood products to be transfused? YIs the patient having/had surgery? Nany Hazel Performed By: #### B RC, BTS ####[facility] [address] [place], [address] Basic Metabolic Profile (BMP )on 04-07-2025 BUN/CRE 22.1 RATIO High 10-20 [facility] Comment on above: Performed By: #### L 500.2500 ####[facility] [address] [place], [address] Calcium [Mass/Vol] 8.2 mg/dL Normal 7.6-11.0 [facility] Comment on above: Performed By: #### L 500.2500 ####[facility] [address] [place], [address] Chloride [Moles/Vol] 99 mmol/L Normal 98-108 [facility] Comment on above: Performed By: #### L 500.2500 ####[facility] [address] [place], [address] CO2 [Moles/Vol] 21.3 mmol/L Normal 21.0-32.0 [facility] Comment on above: Performed By: #### L 500.2500 ####[facility] [address] [place], [address] Creatinine [Mass/Vol] 3.61 mg/dL High 0.70-1.20 [facility] Comment on above: Performed By: #### L 500.2500 ####[facility] [address] [place], [address] ECRCL 14.50 ml/min Low 50-250 [facility] Comment on above: Performed By: #### L 500.2500 ####[facility] [address] [place], [address] GAP 16 High 5-15 [facility] Comment on above: Performed By: #### L 500.2500 ####[facility] [address] [place], [address] GFR/1.73 sq M.predicted among non-blacks MDRD (S/P/Bld) [Vol rate/Area] 16 mL/min/{1.73_m2} Low >60 [facility] Comment on above: Result Comment: mL/m in/1.73m2 CKD-EPI Creatinine Equation (2020) Performed By: #### L 500.2500 ####[facility] [address] [place], [address] Glucose [Mass/Vol] 423 mg/dL High 70-99 [facility] Comment on above: Performed By: #### L 500.2500 ####[facility] [address] [place], [address] Potassium [Moles/Vol] 4.3 mmol/L Normal 3.3-5.1 [facility] Comment on above: Performed By: #### L 500.2500 ####[facility] [address] [place], [address] Sodium [Moles/Vol] 137 mmol/L Normal 133-145 [facility] Comment on above: Performed By: #### L 500.2500 ####[facility] [address] [place], [address] Urea nitrogen [Mass/Vol] 80 mg/dL High 4-19 [facility] Comment on above: Performed By: #### L 500.2500 ####[facility] [address] [place], [address] Bedside Glucoseon 04-07-2025 FINGERSTICK GLU 402 mg/dL High 74-106 [facility] Comment on above: Result Comment: ADITI GEMENT OF PATIENT CARE PER NURSING PROTOCOL Performed By: #### L 501.080 ####[facility] [address] [place], [address] FINGERSTICK GLU 330 mg/dL High 74-106 [facility] Comment on above: Result Comment: ADITI GEMENT OF PATIENT CARE PER NURSING PROTOCOL Performed By: #### L 501.080 ####[facility] [address] [place], [address] FINGERSTICK GLU 333 mg/dL High 74-106 [facility] Comment on above: Result Comment: ADITI GEMENT OF PATIENT CARE PER NURSING PROTOCOL Performed By: #### L 501.080 ####[facility] [address] [place], [address] FINGERSTICK GLU 392 mg/dL High 74-106 [facility] Comment on above: Result Comment: ADITI GEMENT OF PATIENT CARE PER NURSING PROTOCOL Performed By: #### L 501.080 ####[facility] [address] [place], [address] FINGERSTICK GLU 280 mg/dL High 74-106 [facility] Comment on above: Result Comment: ADITI GEMENT OF PATIENT CARE PER NURSING PROTOCOL Performed By: #### L 501.080 ####[facility] [address] [place], [address] CBC W/Diff, Automatedon 06-0 7-2024 Absolute Lymph 1.30 X10 3/uL Normal 0.83-4.51 [facility] Comment on above: Performed By: #### L 100.0100 ####[facility] [address] [place], [address] Absolute Neut 8.2 X10 3/uL High 2.0-7.7 [facility] Comment on above: Performed By: #### L 100.0100 ####[facility] [address] [place], [address] Basophils/100 WBC (Bld) 0.0 % Normal 0-1 [facility] Comment on above: Performed By: #### L 100.0100 ####[facility] [address] [place], [address] Eosinophils/100 WBC (Bld) 0.1 % Normal 0-5 [facility] Comment on above: Performed By: #### L 100.0100 ####[facility] [address] [place], [address] Erythrocyte distribution width (RBC) [Ratio] 13.7 % Normal 11.6-14.6 [facility] Comment on above: Performed By: #### L 100.0100 ####[facility] [address] [place], [address] Hematocrit (Bld) [Volume fraction] 23.1 % Low 40-54 [facility] Comment on above: Performed By: #### L 100.0100 ####[facility] [address] [place], [address] Hemoglobin (Bld) [Mass/Vol] 7.7 g/dL Low 13.0-16.5 [facility] Comment on above: Performed By: #### L 100.0100 ####[facility] [address] [place], [address] IG% 0.300 Normal 0.0-0.9 [facility] Comment on above: Result Comment: IG% - Immature Granulocytes (promyelocytes, myelocytes andmetamyelocytes) > 1% indicates that a LEFT SHIFT is Present. Performed By: #### L 100.0100 ####[facility] [address] [place], [address] Lymphocytes/100 WBC (Bld) 12.6 % Low 19-41 [facility] Comment on above: Performed By: #### L 100.0100 ####[facility] [address] [place], [address] MCH (RBC) [Entitic mass] 30.8 pg Normal 27.0-32.0 [facility] Comment on above: Performed By: #### L 100.0100 ####[facility] [address] [place], [address] MCHC (RBC) [Mass/Vol] 33.3 g/dL Normal 32-36 [facility] Comment on above: Performed By: #### L 100.0100 ####[facility] [address] [place], [address] MCV (RBC) [Entitic vol] 92.4 fL Normal 80-94 [facility] Comment on above: Performed By: #### L 100.0100 ####[facility] [address] [place], [address] Monocytes/100 WBC (Bld) 8.0 % Normal 0-10 [facility] Comment on above: Performed By: #### L 100.0100 ####[facility] [address] [place], [address] Neutrophils/100 WBC (Bld) 79.0 % High 47-70 [facility] Comment on above: Performed By: #### L 100.0100 ####[facility] [address] [place], [address] Nucleated RBC (Bld) [#/Vol] 0 10*3/uL Normal 0-5 [facility] Comment on above: Performed By: #### L 100.0100 ####[facility] [address] [place], [address] Platelet mean volume (Bld) [Entitic vol] 12.3 fL High 6.2-12.0 [facility] Comment on above: Performed By: #### L 100.0100 ####[facility] [address] [place], [address] Platelets (Bld) [#/Vol] 191 10*3/uL Normal 150-450 [facility] Comment on above: Performed By: #### L 100.0100 ####[facility] [address] [place], [address] RBC (Bld) [#/Vol] 2.50 10*6/uL Low 4.6-6.2 [facility] Comment on above: Performed By: #### L 100.0100 ####[facility] [address] [place], [address] RDW SD 46.1 fl High 35.1-43.9 [facility] Comment on above: Performed By: #### L 100.0100 ####[facility] [address] [place], [address] WBC (Bld) [#/Vol] 10.4 10*3/uL Normal 4.4-11.0 [facility] Comment on above: Performed By: #### L 100.0100 ####[facility] [address] [place], [address] Ferritinon 04-07-2025 Ferritin [Mass/Vol] 69 ng/mL Normal 37-417 [facility] Comment on above: Performed By: #### L 503.6030, L503.6550 ####[facility] [address] [place], [address] Gram stainOrdered By: Dyana Hwang on 04-07-2025 Microscopic observation Gram stain Nom (Unsp spec) [facility] Iron measurement (mass/mass) Ordered By: Jose Moore on 04-07-2025 Iron (Unsp spec) [Mass/Mass] 27 ug/dL Low 65-175 [facility] Iron+Iron Binding Capacityon 04-07-2025 Iron [Mass/Vol] 27 ug/dL Low 65-175 [facility] Comment on above: Performed By: #### L 503.6030, L503.6550 ####[facility] [address] [place], [address] IRON SATURATION 10.0 Normal 9-55 [facility] Comment on above: Performed By: #### L 503.6030, L503.6550 ####[facility] [address] [place], [address] TIBC 270 ug/dL Normal 250-450 [facility] Comment on above: Performed By: #### L 503.6030, L503.6550 ####[facility] [address] [place], [address] UIBC 243 ug/dL Normal 228-428 [facility] Comment on above: Performed By: #### L 503.6030, L503.6550 ####[facility] [address] [place], [address] Microbial respiratory cultur eOrdered By: Dyana Hwang on 04-07-2025 Microorganism identified Cx Nom (Unsp spec) or Staphylococcus aureus isolated. [facility] No Panel InformationOrdered By: Jose Moore on 04-07-2025 Unsaturated Iron Binding Capacity 243 ug/dL 228-428 [facility] 243 ug/dL 228-428 [facility] Serum or plasma ferritin heriberto surement (mass/volume)Ordered By: Jose Moore on 04-07-2025 Ferritin [Mass/Vol] 69 ng/mL 37-417 [facility] Serum or plasma iron saturat ion measurement (mass fraction)Ordered By: oJse Moore on 04-07-2025 Iron saturation [Mass fraction] 10.0 % 9-55 [facility] Basic Metabolic Profile (BMP )on 04-06-2025 BUN/CRE 21.8 RATIO High 10-20 [facility] Comment on above: Performed By: #### L 500.2500 ####[facility] [address] [place], [address] Calcium [Mass/Vol] 8.3 mg/dL Normal 7.6-11.0 [facility] Comment on above: Performed By: #### L 500.2500 ####[facility] [address] [place], [address] Chloride [Moles/Vol] 100 mmol/L Normal 98-108 [facility] Comment on above: Performed By: #### L 500.2500 ####[facility] [address] [place], [address] CO2 [Moles/Vol] 21.0 mmol/L Normal 21.0-32.0 [facility] Comment on above: Performed By: #### L 500.2500 ####[facility] [address] [place], [address] Creatinine [Mass/Vol] 4.73 mg/dL High 0.70-1.20 [facility] Comment on above: Performed By: #### L 500.2500 ####[facility] [address] [place], [address] ECRCL 11.24 ml/min Low 50-250 [facility] Comment on above: Performed By: #### L 500.2500 ####[facility] [address] [place], [address] GAP 18 High 5-15 [facility] Comment on above: Performed By: #### L 500.2500 ####[facility] [address] [place], [address] GFR/1.73 sq M.predicted among non-blacks MDRD (S/P/Bld) [Vol rate/Area] 12 mL/min/{1.73_m2} Low >60 [facility] Comment on above: Result Comment: mL/m in/1.73m2 CKD-EPI Creatinine Equation (2020) Performed By: #### L 500.2500 ####[facility] [address] [place], [address] Glucose [Mass/Vol] 233 mg/dL High 70-99 [facility] Comment on above: Performed By: #### L 500.2500 ####[facility] [address] [place], [address] Potassium [Moles/Vol] 4.2 mmol/L Normal 3.3-5.1 [facility] Comment on above: Performed By: #### L 500.2500 ####[facility] [address] [place], [address] Sodium [Moles/Vol] 139 mmol/L Normal 133-145 [facility] Comment on above: Performed By: #### L 500.2500 ####[facility] [address] [place], [address] Urea nitrogen [Mass/Vol] 103 mg/dL Invalid Interpretation Code 4-19 [facility] Comment on above: Result Comment: Crit ical Result(s) Called at: by: 04/06/2025-09:27 Neal to Andressa Khanna.??Results read back by same. Performed By: #### L 500.2500 ####[facility] [address] [place], [address] Bedside Glucoseon 04-06-2025 FINGERSTICK GLU 269 mg/dL High 74-106 [facility] Comment on above: Result Comment: ADITI GEMENT OF PATIENT CARE PER NURSING PROTOCOL Performed By: #### L 501.080 ####[facility] [address] [place], [address] FINGERSTICK GLU 225 mg/dL High 74-106 [facility] Comment on above: Result Comment: ADITI GEMENT OF PATIENT CARE PER NURSING PROTOCOL Performed By: #### L 501.080 ####[facility] [address] [place], [address] FINGERSTICK GLU 281 mg/dL High 74-106 [facility] Comment on above: Result Comment: ADITI GEMENT OF PATIENT CARE PER NURSING PROTOCOL Performed By: #### L 501.080 ####[facility] [address] [place], [address] CBC W/Diff, Automatedon 06-0 6-2025 Absolute Lymph 1.34 X10 3/uL Normal 0.83-4.51 [facility] Comment on above: Performed By: #### L 100.0100 ####[facility] [address] [place], [address] Absolute Neut 12.3 X10 3/uL High 2.0-7.7 [facility] Comment on above: Performed By: #### L 100.0100 ####[facility] [address] [place], [address] Basophils/100 WBC (Bld) 0.1 % Normal 0-1 [facility] Comment on above: Performed By: #### L 100.0100 ####[facility] [address] [place], [address] Eosinophils/100 WBC (Bld) 0.0 % Normal 0-5 [facility] Comment on above: Performed By: #### L 100.0100 ####[facility] [address] [place], [address] Erythrocyte distribution width (RBC) [Ratio] 13.8 % Normal 11.6-14.6 [facility] Comment on above: Performed By: #### L 100.0100 ####[facility] [address] [place], [address] Hematocrit (Bld) [Volume fraction] 23.6 % Low 40-54 [facility] Comment on above: Performed By: #### L 100.0100 ####[facility] [address] [place], [address] Hemoglobin (Bld) [Mass/Vol] 7.9 g/dL Low 13.0-16.5 [facility] Comment on above: Performed By: #### L 100.0100 ####[facility] [address] [place], [address] IG% 0.500 Normal 0.0-0.9 [facility] Comment on above: Result Comment: IG% - Immature Granulocytes (promyelocytes, myelocytes andmetamyelocytes) > 1% indicates that a LEFT SHIFT is Present. Performed By: #### L 100.0100 ####[facility] [address] [place], [address] Lymphocytes/100 WBC (Bld) 9.1 % Low 19-41 [facility] Comment on above: Performed By: #### L 100.0100 ####[facility] [address] [place], [address] MCH (RBC) [Entitic mass] 30.7 pg Normal 27.0-32.0 [facility] Comment on above: Performed By: #### L 100.0100 ####[facility] [address] [place], [address] MCHC (RBC) [Mass/Vol] 33.5 g/dL Normal 32-36 [facility] Comment on above: Performed By: #### L 100.0100 ####[facility] [address] [place], [address] MCV (RBC) [Entitic vol] 91.8 fL Normal 80-94 [facility] Comment on above: Performed By: #### L 100.0100 ####[facility] [address] [place], [address] Monocytes/100 WBC (Bld) 7.0 % Normal 0-10 [facility] Comment on above: Performed By: #### L 100.0100 ####[facility] [address] [place], [address] Neutrophils/100 WBC (Bld) 83.3 % High 47-70 [facility] Comment on above: Performed By: #### L 100.0100 ####[facility] [address] [place], [address] Nucleated RBC (Bld) [#/Vol] 0 10*3/uL Normal 0-5 [facility] Comment on above: Performed By: #### L 100.0100 ####[facility] [address] [place], [address] Platelet mean volume (Bld) [Entitic vol] 11.9 fL Normal 6.2-12.0 [facility] Comment on above: Performed By: #### L 100.0100 ####[facility] [address] [place], [address] Platelets (Bld) [#/Vol] 222 10*3/uL Normal 150-450 [facility] Comment on above: Performed By: #### L 100.0100 ####[facility] [address] [place], [address] RBC (Bld) [#/Vol] 2.57 10*6/uL Low 4.6-6.2 [facility] Comment on above: Performed By: #### L 100.0100 ####[facility] [address] [place], [address] RDW SD 46.2 fl High 35.1-43.9 [facility] Comment on above: Performed By: #### L 100.0100 ####[facility] [address] [place], [address] WBC (Bld) [#/Vol] 14.8 10*3/uL High 4.4-11.0 [facility] Comment on above: Performed By: #### L 100.0100 ####[facility] [address] [place], [address] Magnesiumon 04-06-2025 Magnesium [Mass/Vol] 2.8 mg/dL High 1.5-2.2 [facility] Comment on above: Performed By: #### L 501.5200, L501.2300 ####[facility] [address] [place], [address] Magnesium measurement (mass/ volume)Ordered By: Barbie Martin on 04-06-2025 Magnesium (Unsp spec) [Mass/Vol] 2.8 mg/dL High 1.5-2.2 [facility] Phosphoruson 04-06-2025 Phosphate [Mass/Vol] 7.1 mg/dL High 2.7-4.5 [facility] Comment on above: Performed By: #### L 501.5200, L501.2300 ####[facility] [address] [place], [place], [id number] Serum classic neutrophil cyt oplasmic antibody assay (units/volume)Ordered By: Denisha Thompson on 04-06-2025 Neutrophil cytoplasmic Ab.classic Qn (S) <1:20 titer Neg:<1:20 [facility] Serum glomerular basement me mbrane antibody assay (units/volume)Ordered By: Denisha Thompson on 04-06-2025 Glomerular basement membrane Ab Qn (S) < 0.2 units 0.0-0.9 [facility] Comment on above: Performed at: [address] [id number] Director: Mignon Taylor MD, Phone: [phone] Serum perinuclear neutrophil cytoplasmic antibody titer by immunofluorescenceOrdered By: Denisha Thompson on 04-06-2025 Neutrophil cytoplasmic Ab.perinuclear IF (S) [Titer] <1:20 titer Neg:<1:20 [facility] Comment on above: The presence of posi tive fluorescence exhibiting P-ANCA orC-ANCA patterns alone is not specific for the diagnosis ofWegener's Granulomatosis (WG) or microscopic polyangiitis.Decisions about treatment should not be based solely onANCA IFA results. The [employer] Consensusrecommends follow up testing of positive sera with both OR-3 and MPO-ANCA enzyme immunoassays. As many as 5% serumsamples are positive only by EIA. Ref. AM J Clin [id number];111:507-513. 12 Lead EKGon 04-05-2025 12 Lead EKG Normal [facility] Basic Metabolic Profile (BMP )on 04-05-2025 BUN/CRE 20.8 RATIO High 10-20 [facility] Comment on above: Performed By: #### L 500.2500 ####[facility] [address] [place], [address] Calcium [Mass/Vol] 8.9 mg/dL Normal 7.6-11.0 [facility] Comment on above: Performed By: #### L 500.2500 ####[facility] [address] [place], [address] Chloride [Moles/Vol] 102 mmol/L Normal 98-108 [facility] Comment on above: Performed By: #### L 500.2500 ####[facility] [address] [place], [address] CO2 [Moles/Vol] 15.6 mmol/L Low 21.0-32.0 [facility] Comment on above: Performed By: #### L 500.2500 ####[facility] [address] [place], [address] Creatinine [Mass/Vol] 4.77 mg/dL High 0.70-1.20 [facility] Comment on above: Performed By: #### L 500.2500 ####[facility] [address] [place], [address] ECRCL 10.67 ml/min Low 50-250 [facility] Comment on above: Performed By: #### L 500.2500 ####[facility] [address] [place], [address] GAP 19 High 5-15 [facility] Comment on above: Performed By: #### L 500.2500 ####[facility] [address] [place], [address] GFR/1.73 sq M.predicted among non-blacks MDRD (S/P/Bld) [Vol rate/Area] 12 mL/min/{1.73_m2} Low >60 [facility] Comment on above: Result Comment: mL/m in/1.73m2 CKD-EPI Creatinine Equation (2020) Performed By: #### L 500.2500 ####[facility] [address] [place], [address] Glucose [Mass/Vol] 205 mg/dL High 70-99 [facility] Comment on above: Performed By: #### L 500.2500 ####[facility] [address] [place], [address] Potassium [Moles/Vol] 5.7 mmol/L High 3.3-5.1 [facility] Comment on above: Result Comment: Hemo lysis present, Results??could be affected.?? Performed By: #### L 500.2500 ####[facility] [address] [place], [address] Sodium [Moles/Vol] 137 mmol/L Normal 133-145 [facility] Comment on above: Performed By: #### L 500.2500 ####[facility] [address] [place], [address] Urea nitrogen [Mass/Vol] 99 mg/dL High 4-19 [facility] Comment on above: Performed By: #### L 500.2500 ####[facility] [address] [place], [address] BUN/CRE 20.5 RATIO High 10-20 [facility] Comment on above: Performed By: #### L 500.2500 ####[facility] [address] [place], [address] Calcium [Mass/Vol] 8.1 mg/dL Normal 7.6-11.0 [facility] Comment on above: Performed By: #### L 500.2500 ####[facility] [address] [place], [address] Chloride [Moles/Vol] 102 mmol/L Normal 98-108 [facility] Comment on above: Performed By: #### L 500.2500 ####[facility] [address] [place], [address] CO2 [Moles/Vol] 15.8 mmol/L Low 21.0-32.0 [facility] Comment on above: Performed By: #### L 500.2500 ####[facility] [address] [place], [address] Creatinine [Mass/Vol] 4.68 mg/dL High 0.70-1.20 [facility] Comment on above: Performed By: #### L 500.2500 ####[facility] [address] [place], [address] ECRCL 10.87 ml/min Low 50-250 [facility] Comment on above: Performed By: #### L 500.2500 ####[facility] [address] [place], [address] GAP 18 High 5-15 [facility] Comment on above: Performed By: #### L 500.2500 ####[facility] [address] [place], [address] GFR/1.73 sq M.predicted among non-blacks MDRD (S/P/Bld) [Vol rate/Area] 12 mL/min/{1.73_m2} Low >60 [facility] Comment on above: Result Comment: mL/m in/1.73m2 CKD-EPI Creatinine Equation (2020) Performed By: #### L 500.2500 ####[facility] [address] [place], [address] Glucose [Mass/Vol] 223 mg/dL High 70-99 [facility] Comment on above: Performed By: #### L 500.2500 ####[facility] [address] [place], [address] Potassium [Moles/Vol] 6.3 mmol/L Invalid Interpretation Code 3.3-5.1 [facility] Comment on above: Result Comment: Crit ical Result(s) Called to: STANTON PARRA (U) by:RONEN??Results read back by same. Performed By: #### L 500.2500 ####[facility] [address] [place], [address] Sodium [Moles/Vol] 136 mmol/L Normal 133-145 [facility] Comment on above: Performed By: #### L 500.2500 ####[facility] [address] [place], [address] Urea nitrogen [Mass/Vol] 96 mg/dL High 4-19 [facility] Comment on above: Performed By: #### L 500.2500 ####[facility] [address] [place], [address] Bedside Glucoseon 04-05-2025 FINGERSTICK GLU 282 mg/dL High 74-106 [facility] Comment on above: Result Comment: ADITI GEMENT OF PATIENT CARE PER NURSING PROTOCOL Performed By: #### L 501.080 ####[facility] [address] [place], [address] FINGERSTICK GLU 165 mg/dL High 74-106 [facility] Comment on above: Result Comment: ADIIT GEMENT OF PATIENT CARE PER NURSING PROTOCOL Performed By: #### L 501.080 ####[facility] [address] [place], [address] FINGERSTICK GLU 239 mg/dL High 74-106 [facility] Comment on above: Result Comment: ADITI GEMENT OF PATIENT CARE PER NURSING PROTOCOL Performed By: #### L 501.080 ####[facility] [address] [place], [address] FINGERSTICK GLU 226 mg/dL High 74-106 [facility] Comment on above: Result Comment: ADITI GEMENT OF PATIENT CARE PER NURSING PROTOCOL Performed By: #### L 501.080 ####[facility] [address] [place], [address] FINGERSTICK GLU 263 mg/dL High 74-106 [facility] Comment on above: Result Comment: ADITI GEMENT OF PATIENT CARE PER NURSING PROTOCOL Performed By: #### L 501.080 ####[facility] [address] [place], [address] FINGERSTICK GLU 253 mg/dL High 74-106 [facility] Comment on above: Result Comment: ADITI GEMENT OF PATIENT CARE PER NURSING PROTOCOL Performed By: #### L 501.080 ####[facility] [address] [place], [address] Bilirubin Test strip Ql (U)O rdered By: Denisha Thompson on 04-05-2025 Bilirubin Ql (U) 1 mg/dL High Negative [facility] Comment on above: COLOR OF URINE MAY A FFECT DIPSTICK RESULTS. Blood manual differential co mment interpretation (narrative result)Ordered By: Grace Arnold on 04-05-2025 Manual differential comment Mumtaz (Bld) [Interp] SCANNED [facility] CBC W/Diff, Automatedon SMEAR COMMENT SCANNED Normal [facility] Comment on above: Performed By: #### L 100.0100 ####[facility] [address] [place], [address] CXR for Line Placementon CXR for Line Placement Normal [facility] Consultation - Surgicalon Consultation - Surgical Normal [facility] Ketones Test strip Ql (U)Ord ered By: Denisha Thompson on 04-05-2025 Ketones Ql (U) Negative Negative [facility] L499.0042on 04-05-2025 Trop T High Sen 2263 ng/L Invalid Interpretation Code <=22 [facility] Comment on above: Result Comment: Crit ical Result(s) Called at: 0040 by: BJ??Results read back by same. Performed By: #### L 499.0042 ####[facility] [address] [facility] [address] [place], [place], [address] L499.0043on 04-05-2025 Trop T High Sen 2425 ng/L Invalid Interpretation Code <=22 [facility] Comment on above: Result Comment: Crit ical Result(s) Called at: 0336 by:??DASIA ALICIA Results read back by same. Performed By: #### L 499.0043 ####[facility] [address] [facility] [address] [place], [place], [id number] Microscopic analysis of urin e for red blood cells (RBC)Ordered By: Denisha Thompson on 04-05-2025 Microscopic analysis of urine for red blood cells (RBC) > 100 SEEN /hpf 0-5 [facility] Mucus LM Ql (Urine sed)Order ed By: Denisha Thompson on 04-05-2025 Mucus Ql (Urine sed) 0 SEEN /hpf [facility] Nitrite Test strip Ql (U)Ord ered By: Denisha Thompson on 04-05-2025 Nitrite Ql (U) Negative Negative [facility] Operative Reporton Operative Report Normal [facility] Protein Test strip Ql (U)Ord ered By: Denisha Thompson on 04-05-2025 Protein Ql (U) 100 mg/dl High Negative [facility] Squamous epithelial cells de tection in urine sediment by light microscopyOrdered By: Denisha Thompson on 04-05-2025 Epithelial cells.squamous LM Ql (Urine sed) 0 SEEN /hpf 0-5 [facility] Troponin T.cardiac [Mass/vol ume] in Serum or Plasma by High sensitivity methodOrdered By: Breezy Campbell on 04-05-2025 Troponin T.cardiac High sensitivity method [Mass/Vol] 2425 ng/L High <22 [facility] Comment on above: Critical Result(s) C alled at: 0336 by: DASIA MOYA TO ANA ALICIA Results read back by same. Urinalysis, Completeon 04-05 WBC 5-10 SEEN Normal 0-5 [facility] Comment on above: Order Comment: HATTIE TER SPECIMEN Performed By: #### L 400.0001 ####[facility] [address] [place], [address] RBC > 100 SEEN Normal 0-5 [facility] Comment on above: Order Comment: HATTIE TER SPECIMEN Performed By: #### L 400.0001 ####[facility] [address] [place], [address] BACTERIA 0 SEEN Normal None Seen [facility] Comment on above: Order Comment: HATTIE TER SPECIMEN Performed By: #### L 400.0001 ####[facility] [address] [place], [address] EPI,SQUAMOUS 0 SEEN Normal 0-5 [facility] Comment on above: Order Comment: HATTIE TER SPECIMEN Performed By: #### L 400.0001 ####[facility] [address] [place], [address] Mucus Ql (Urine sed) 0 SEEN Normal [facility] Comment on above: Order Comment: HATTIE TER SPECIMEN Performed By: #### L 400.0001 ####[facility] [address] [place], [address] Urine clarityOrdered By: Zelalem Thompson on 04-05-2025 Clarity (U) Sl. Cloudy Clear [facility] Urine color determinationOrd ered By: Denisha Thompson on 04-05-2025 Color (U) Yellow Yellow [facility] Urine glucose detectionOrder ed By: Denisha Thompson on 04-05-2025 Glucose Ql (U) Normal mg/dl Normal [facility] Urine leukocyte esterase det ection by dipstickOrdered By: Denisha Thompson on 04-05-2025 Leukocyte esterase Test strip Ql (U) 500 /ul High Negative [facility] Urine pHOrdered By: Almtia Thompson on 04-05-2025 pH (U) 5.0 [pH] 5.0 - 8.0 [facility] Urine sediment bacteria coun t by microscopy (number/high power field)Ordered By: Denisha Thompson on 04-05-2025 Bacteria LM.HPF (Urine sed) [#/Area] 0 /[HPF] None Seen [facility] Urine specific gravity measu rementOrdered By: Denisha Thompson on 04-05-2025 Specific gravity (U) [Rel density] 1.020 1.002-1.030 [facility] Urine urobilinogen measureme ntOrdered By: Denisha Thompson on 04-05-2025 Urobilinogen Ql (U) Normal mg/dl Normal [facility] White blood cell countOrdere d By: Denisha Thompson on 04-05-2025 White blood cell count 5-10 SEEN /hpf 0-5 [facility] 12 Lead EKGon 04-04-2025 12 Lead EKG Normal [facility] 12 Lead EKG Normal [facility] 12 Lead EKG Normal [facility] Basic Metabolic Profile (BMP )on 04-04-2025 BUN Normal 4-19 [facility] Comment on above: Result Comment: CANC EL PER DEVEROAUX Performed By: #### L 500.2500 ####[facility] [address] [place], [place], [id number] BUN/CRE Normal 10-20 [facility] Comment on above: Result Comment: CANC EL PER DEVEROAUX Performed By: #### L 500.2500 ####[facility] [address] [place], [address] Calcium Normal 7.6-11.0 [facility] Comment on above: Result Comment: CANC EL PER DEVEROAUX Performed By: #### L 500.2500 ####[facility] [address] [place], [address] CL Normal 98-108 [facility] Comment on above: Result Comment: CANC EL PER DEVEROAUX Performed By: #### L 500.2500 ####[facility] [address] [place], [address] CO2 Normal 21.0-32.0 [facility] Comment on above: Result Comment: CANC EL PER DEVEROAUX Performed By: #### L 500.2500 ####[facility] [address] [place], [address] CREAT,SERUM Normal 0.70-1.20 [facility] Comment on above: Result Comment: CANC EL PER DEVEROAUX Performed By: #### L 500.2500 ####[facility] [address] [place], [address] eGFR Normal >60 [facility] Comment on above: Result Comment: CANC EL PER DEVEROAUX Performed By: #### L 500.2500 ####[facility] [address] [place], [address] GAP Normal 5-15 [facility] Comment on above: Result Comment: CANC EL PER DEVEROAUX Performed By: #### L 500.2500 ####[facility] [address] [place], [address] GLU Normal 70-99 [facility] Comment on above: Result Comment: CANC EL PER DEVEROAUX Performed By: #### L 500.2500 ####[facility] [address] [place], [address] Potassium Normal 3.3-5.1 [facility] Comment on above: Result Comment: CANC EL PER DEVEROAUX Performed By: #### L 500.2500 ####[facility] [address] [place], [address] Basic Metabolic Profile (BMP) Normal 133-145 [facility] Comment on above: Result Comment: CANC EL PER DEVEROAUX Performed By: #### L 500.2500 ####[facility] [address] [place], [address] BUN/CRE 20.5 RATIO High 10-20 [facility] Comment on above: Performed By: #### L 500.2500 ####[facility] [address] [place], [address] Calcium [Mass/Vol] 8.6 mg/dL Normal 7.6-11.0 [facility] Comment on above: Performed By: #### L 500.2500 ####[facility] [address] [place], [address] Chloride [Moles/Vol] 101 mmol/L Normal 98-108 [facility] Comment on above: Performed By: #### L 500.2500 ####[facility] [address] [place], [address] CO2 [Moles/Vol] 17.2 mmol/L Low 21.0-32.0 [facility] Comment on above: Performed By: #### L 500.2500 ####[facility] [address] [place], [address] Creatinine [Mass/Vol] 3.74 mg/dL High 0.70-1.20 [facility] Comment on above: Performed By: #### L 500.2500 ####[facility] [address] [place], [address] ECRCL 13.61 ml/min Low 50-250 [facility] Comment on above: Performed By: #### L 500.2500 ####[facility] [address] [place], [address] GAP 17 High 5-15 [facility] Comment on above: Performed By: #### L 500.2500 ####[facility] [address] [place], [address] GFR/1.73 sq M.predicted among non-blacks MDRD (S/P/Bld) [Vol rate/Area] 16 mL/min/{1.73_m2} Low >60 [facility] Comment on above: Result Comment: mL/m in/1.73m2 CKD-EPI Creatinine Equation (2020) Performed By: #### L 500.2500 ####[facility] [address] [place], [address] Glucose [Mass/Vol] 226 mg/dL High 70-99 [facility] Comment on above: Performed By: #### L 500.2500 ####[facility] [address] [place], [address] Potassium [Moles/Vol] 5.4 mmol/L High 3.3-5.1 [facility] Comment on above: Performed By: #### L 500.2500 ####[facility] [address] [place], [address] Sodium [Moles/Vol] 134 mmol/L Normal 133-145 [facility] Comment on above: Performed By: #### L 500.2500 ####[facility] [address] [place], [address] Urea nitrogen [Mass/Vol] 77 mg/dL High 4-19 [facility] Comment on above: Performed By: #### L 500.2500 ####[facility] [address] [place], [address] BUN/CRE 21.0 RATIO High 10-20 [facility] Comment on above: Performed By: #### L 500.2500 ####[facility] [address] [place], [address] Calcium [Mass/Vol] 8.7 mg/dL Normal 7.6-11.0 [facility] Comment on above: Performed By: #### L 500.2500 ####[facility] [address] [place], [address] Chloride [Moles/Vol] 104 mmol/L Normal 98-108 [facility] Comment on above: Performed By: #### L 500.2500 ####[facility] [address] [place], [address] CO2 [Moles/Vol] 17.5 mmol/L Low 21.0-32.0 [facility] Comment on above: Performed By: #### L 500.2500 ####[facility] [address] [place], [address] Creatinine [Mass/Vol] 3.34 mg/dL High 0.70-1.20 [facility] Comment on above: Performed By: #### L 500.2500 ####[facility] [address] [place], [address] ECRCL 15.24 ml/min Low 50-250 [facility] Comment on above: Performed By: #### L 500.2500 ####[facility] [address] [place], [address] GAP 15 Normal 5-15 [facility] Comment on above: Performed By: #### L 500.2500 ####[facility] [address] [place], [address] GFR/1.73 sq M.predicted among non-blacks MDRD (S/P/Bld) [Vol rate/Area] 18 mL/min/{1.73_m2} Low >60 [facility] Comment on above: Result Comment: mL/m in/1.73m2 CKD-EPI Creatinine Equation (2020) Performed By: #### L 500.2500 ####[facility] [address] [place], [address] Glucose [Mass/Vol] 208 mg/dL High 70-99 [facility] Comment on above: Performed By: #### L 500.2500 ####[facility] [address] [place], [address] Potassium [Moles/Vol] 5.0 mmol/L Normal 3.3-5.1 [facility] Comment on above: Performed By: #### L 500.2500 ####[facility] [address] [place], [address] Sodium [Moles/Vol] 137 mmol/L Normal 133-145 [facility] Comment on above: Performed By: #### L 500.2500 ####[facility] [address] [place], [address] Urea nitrogen [Mass/Vol] 70 mg/dL High 4-19 [facility] Comment on above: Performed By: #### L 500.2500 ####[facility] [address] [place], [address] BUN/CRE 21.1 RATIO High 10-20 [facility] Comment on above: Performed By: #### L 500.2500 ####[facility] [address] [place], [address] Calcium [Mass/Vol] 8.6 mg/dL Normal 7.6-11.0 [facility] Comment on above: Performed By: #### L 500.2500 ####[facility] [address] [place], [address] Chloride [Moles/Vol] 103 mmol/L Normal 98-108 [facility] Comment on above: Performed By: #### L 500.2500 ####[facility] [address] [place], [address] CO2 [Moles/Vol] 17.8 mmol/L Low 21.0-32.0 [facility] Comment on above: Performed By: #### L 500.2500 ####[facility] [address] [place], [address] Creatinine [Mass/Vol] 3.26 mg/dL High 0.70-1.20 [facility] Comment on above: Performed By: #### L 500.2500 ####[facility] [address] [place], [address] ECRCL 15.61 ml/min Low 50-250 [facility] Comment on above: Performed By: #### L 500.2500 ####[facility] [address] [place], [address] GAP 15 Normal 5-15 [facility] Comment on above: Performed By: #### L 500.2500 ####[facility] [address] [place], [address] GFR/1.73 sq M.predicted among non-blacks MDRD (S/P/Bld) [Vol rate/Area] 18 mL/min/{1.73_m2} Low >60 [facility] Comment on above: Result Comment: mL/m in/1.73m2 CKD-EPI Creatinine Equation (2020) Performed By: #### L 500.2500 ####[facility] [address] [place], [address] Glucose [Mass/Vol] 203 mg/dL High 70-99 [facility] Comment on above: Performed By: #### L 500.2500 ####[facility] [address] [place], [address] Potassium [Moles/Vol] 4.6 mmol/L Normal 3.3-5.1 [facility] Comment on above: Performed By: #### L 500.2500 ####[facility] [address] [place], [address] Sodium [Moles/Vol] 136 mmol/L Normal 133-145 [facility] Comment on above: Performed By: #### L 500.2500 ####[facility] [address] [place], [address] Urea nitrogen [Mass/Vol] 69 mg/dL High 4-19 [facility] Comment on above: Performed By: #### L 500.2500 ####[facility] [address] [place], [address] Bedside Glucoseon 04-04-2025 FINGERSTICK GLU 355 mg/dL High 74-106 [facility] Comment on above: Result Comment: ADITI GEMENT OF PATIENT CARE PER NURSING PROTOCOL Performed By: #### L 501.080 ####[facility] [address] [place], [address] FINGERSTICK GLU 307 mg/dL High 74-106 [facility] Comment on above: Result Comment: ADITI GEMENT OF PATIENT CARE PER NURSING PROTOCOL Performed By: #### L 501.080 ####[facility] [address] [place], [address] FINGERSTICK GLU 209 mg/dL High 74-106 [facility] Comment on above: Result Comment: ADITI GEMENT OF PATIENT CARE PER NURSING PROTOCOL Performed By: #### L 501.080 ####[facility] [address] [place], [address] FINGERSTICK GLU 164 mg/dL High 74-106 [facility] Comment on above: Result Comment: ADITI GEMENT OF PATIENT CARE PER NURSING PROTOCOL Performed By: #### L 501.080 ####[facility] [address] [place], [address] FINGERSTICK GLU 183 mg/dL High 74-106 [facility] Comment on above: Result Comment: ADITI GEMENT OF PATIENT CARE PER NURSING PROTOCOL Performed By: #### L 501.080 ####[facility] [address] [place], [address] FINGERSTICK GLU 178 mg/dL High 74-106 [facility] Comment on above: Result Comment: ADITI GEMENT OF PATIENT CARE PER NURSING PROTOCOL Performed By: #### L 501.080 ####[facility] [address] [place], [address] FINGERSTICK GLU 174 mg/dL High 74-106 [facility] Comment on above: Result Comment: ADITI GEMENT OF PATIENT CARE PER NURSING PROTOCOL Performed By: #### L 501.080 ####[facility] [address] [place], [address] FINGERSTICK GLU 229 mg/dL High 74-106 [facility] Comment on above: Result Comment: ADITI GEMENT OF PATIENT CARE PER NURSING PROTOCOL Performed By: #### L 501.080 ####[facility] [address] [place], [address] FINGERSTICK GLU 317 mg/dL High [facility]106 [facility] Comment on above: Result Comment: ADITI GEMENT OF PATIENT CARE PER NURSING PROTOCOL Performed By: #### L 501.080 ####[facility] [address] [place], [address] FINGERSTICK GLU 366 mg/dL High [address] [place] [address] Comment on above: Result Comment: ADITI GEMENT OF PATIENT CARE PER NURSING PROTOCOL Performed By: #### L 501.080 ####[facility] [address] [place], [address] FINGERSTICK GLU 250 mg/dL High [address] [place] [address] Comment on above: Result Comment: ADITI GEMENT OF PATIENT CARE PER NURSING PROTOCOL Performed By: #### L 501.080 ####[facility] [address] [place], [address] FINGERSTICK GLU 284 mg/dL High -106 [facility] Comment on above: Result Comment: ADITI GEMENT OF PATIENT CARE PER NURSING PROTOCOL Performed By: #### L 501.080 ####[facility] [address] [place], [address] FINGERSTICK GLU 235 mg/dL High 74-106 [facility] Comment on above: Result Comment: ADITI GEMENT OF PATIENT CARE PER NURSING PROTOCOL Performed By: #### L 501.080 ####[facility] [address] [place], [address] FINGERSTICK GLU 261 mg/dL High 74-106 [facility] Comment on above: Result Comment: ADITI GEMENT OF PATIENT CARE PER NURSING PROTOCOL Performed By: #### L 501.080 ####[facility] [address] [place], [address] CBC W/Diff, Automatedon 06-0 4-2025 Absolute Lymph 1.08 X10 3/uL Normal 0.83-4.51 [facility] Comment on above: Performed By: #### L 100.0100 ####[facility] [address] [place], [address] Absolute Neut 19.9 X10 3/uL High 2.0-7.7 [facility] Comment on above: Performed By: #### L 100.0100 ####[facility] [address] [place], [address] Basophils/100 WBC (Bld) 0.1 % Normal 0-1 [facility] Comment on above: Performed By: #### L 100.0100 ####[facility] [address] [place], [address] Eosinophils/100 WBC (Bld) 0.0 % Normal 0-5 [facility] Comment on above: Performed By: #### L 100.0100 ####[facility] [address] [place], [address] Erythrocyte distribution width (RBC) [Ratio] 13.6 % Normal 11.6-14.6 [facility] Comment on above: Performed By: #### L 100.0100 ####[facility] [address] [place], [address] Hematocrit (Bld) [Volume fraction] 22.8 % Low 40-54 [facility] Comment on above: Performed By: #### L 100.0100 ####[facility] [address] [place], [address] Hemoglobin (Bld) [Mass/Vol] 7.4 g/dL Low 13.0-16.5 [facility] Comment on above: Performed By: #### L 100.0100 ####[facility] [address] [place], [address] IG% 0.600 Normal 0.0-0.9 [facility] Comment on above: Result Comment: IG% - Immature Granulocytes (promyelocytes, myelocytes andmetamyelocytes) > 1% indicates that a LEFT SHIFT is Present. Performed By: #### L 100.0100 ####[facility] [address] [place], [address] Lymphocytes/100 WBC (Bld) 4.9 % Low 19-41 [facility] Comment on above: Performed By: #### L 100.0100 ####[facility] [address] [place], [address] MCH (RBC) [Entitic mass] 30.0 pg Normal 27.0-32.0 [facility] Comment on above: Performed By: #### L 100.0100 ####[facility] [address] [place], [address] MCHC (RBC) [Mass/Vol] 32.5 g/dL Normal 32-36 [facility] Comment on above: Performed By: #### L 100.0100 ####[facility] [address] [place], [address] MCV (RBC) [Entitic vol] 92.3 fL Normal 80-94 [facility] Comment on above: Performed By: #### L 100.0100 ####[facility] [address] [place], [address] Monocytes/100 WBC (Bld) 4.0 % Normal 0-10 [facility] Comment on above: Performed By: #### L 100.0100 ####[facility] [address] [place], [address] Neutrophils/100 WBC (Bld) 90.4 % High 47-70 [facility] Comment on above: Performed By: #### L 100.0100 ####[facility] [address] [place], [address] Nucleated RBC (Bld) [#/Vol] 0 10*3/uL Normal 0-5 [facility] Comment on above: Performed By: #### L 100.0100 ####[facility] [address] [place], [address] Platelet mean volume (Bld) [Entitic vol] 11.4 fL Normal 6.2-12.0 [facility] Comment on above: Performed By: #### L 100.0100 ####[facility] [address] [place], [address] Platelets (Bld) [#/Vol] 230 10*3/uL Normal 150-450 [facility] Comment on above: Performed By: #### L 100.0100 ####[facility] [address] [place], [address] RBC (Bld) [#/Vol] 2.47 10*6/uL Low 4.6-6.2 [facility] Comment on above: Performed By: #### L 100.0100 ####[facility] [address] [place], [address] RDW SD 45.9 fl High 35.1-43.9 [facility] Comment on above: Performed By: #### L 100.0100 ####[facility] [address] [place], [address] WBC (Bld) [#/Vol] 22.0 10*3/uL High 4.4-11.0 [facility] Comment on above: Performed By: #### L 100.0100 ####[facility] [address] [place], [place], [address] Consultation - Nephrologyon 04-04-2025 Consultation - Nephrology Normal [facility] Creatinine, Urineon 04-04-20 25 URINE CREAT 138.00 mg/dL Normal 39.00-259.00 [facility] Comment on above: Performed By: #### L 502.0715, L502.0300 ####[facility] [address] [place], [address] Kidney and Bladderon 025 Kidney and Bladder Normal [facility] L501.4021on 04-04-2025 Trop T High Sen 2204 ng/L Invalid Interpretation Code <=22 [facility] Comment on above: Result Comment: Crit ical Result(s) Called at: 2232 by: JEANNIE SHARMA Results read back by same. Performed By: #### L 501.4021 ####[facility] [address] [place], [address] Troponin T.cardiac [Mass/vol ume] in Serum or Plasma by High sensitivity methodOrdered By: Breezy Campbell on 04-04-2025 Troponin T.cardiac High sensitivity method [Mass/Vol] 2204 ng/L High <22 [facility] Comment on above: Delta: 58 on 5-0005Critical Result(s) Called at: 2232 by: JEANNIE SHARMA Results read back by same. Troponin T.cardiac High sensitivity method [Mass/Vol] 2263 ng/L High <22 [facility] Comment on above: Critical Result(s) C alled at: 0040 by: JENNIFER SHARMA Results read back by same. Urea Nitrogen, Urineon 04-04 URINE UREA 406 mg/dL Normal NO RANGE EST. [facility] Comment on above: Performed By: #### L 502.0715, L502.0300 ####[facility] [address] [place], [address] Urine Cultureon 04-04-2025 URC Culture exhibits no growth. Normal [facility] Comment on above: Performed By: #### M 100.2200 ####[facility] [address] [place], [place], [address] Urine creatinine measurement (mass/volume)Ordered By: Grace Arnold on 04-04-2025 Creatinine (U) [Mass/Vol] 138.00 mg/dL 39.00-25 9.00 [facility] 12 Lead EKGon 04-03-2025 12 Lead EKG Normal [facility] Absolute lymphocyte countOrd ered By: John Brandon on 04-03-2025 Lymphocytes Auto (Unsp spec) [#/Vol] 2.12 10*3/uL 0.83-4.51 [facility] Absolute neutrophil countOrd ered By: John Brandon on 04-03-2025 Neutrophils (Bld) [#/Vol] 12.0 10*3/uL High 2.0-7.7 [facility] Activated partial thrombopla stin time (aPTT) in platelet poor plasma by coagulation aOrdered By: Grace Arnold on 04-03-2025 aPTT Coag (PPP) [Time] 212.0 s High 24.1-36.2 [facility] Comment on above: CRITICAL VALUE GRIMM D TO RElizabet OBREGONZO04/03/25 1243 Ness Huang.RESULTS READ BACK BY SAME. Activated partial thrombopla stin time (aPTT) in platelet poor plasma by coagulation aOrdered By: Dyana Hwang on 04-03-2025 aPTT Coag (PPP) [Time] 37.3 s High 24.1-36.2 [facility] Anion gap in Serum or Plasma Ordered By: John Brandon on 04-03-2025 Anion gap [Moles/Vol] 14 mmol/L 5-15 [facility] Assessment of wrist artery p atency prior to arterial punctureOrdered By: Dyana Hwang on 04-03-2025 Arterial patency Wrist artery --pre arterial puncture Positive [facility] Automated lymphocyte count a s percentage of total leukocytesOrdered By: John Brandon on 04-03-2025 Lymphocytes/100 WBC Auto (Unsp spec) 13.5 % Low 19-41 [facility] BUN/creatinine ratioOrdered By: John Brandon on 04-03-2025 Urea nitrogen/Creatinine [Mass ratio] 22.3 mg/mg High 10-20 [facility] Basic Metabolic Profile (BMP )on 04-03-2025 BUN/CRE 21.7 RATIO High 10-20 [facility] Comment on above: Performed By: #### L 500.2500 ####[facility] [address] [place], [address] Calcium [Mass/Vol] 8.5 mg/dL Normal 7.6-11.0 [facility] Comment on above: Performed By: #### L 500.2500 ####[facility] [address] [place], [address] Chloride [Moles/Vol] 102 mmol/L Normal 98-108 [facility] Comment on above: Performed By: #### L 500.2500 ####[facility] [address] [place], [address] CO2 [Moles/Vol] 17.3 mmol/L Low 21.0-32.0 [facility] Comment on above: Performed By: #### L 500.2500 ####[facility] [address] [place], [address] Creatinine [Mass/Vol] 3.02 mg/dL High 0.70-1.20 [facility] Comment on above: Performed By: #### L 500.2500 ####[facility] [address] [place], [address] ECRCL 16.69 ml/min Low 50-250 [facility] Comment on above: Performed By: #### L 500.2500 ####[facility] [address] [place], [address] GAP 16 High 5-15 [facility] Comment on above: Performed By: #### L 500.2500 ####[facility] [address] [place], [address] GFR/1.73 sq M.predicted among non-blacks MDRD (S/P/Bld) [Vol rate/Area] 20 mL/min/{1.73_m2} Low >60 [facility] Comment on above: Result Comment: mL/m in/1.73m2 CKD-EPI Creatinine Equation (2020) Performed By: #### L 500.2500 ####[facility] [address] [place], [address] Glucose [Mass/Vol] 275 mg/dL High 70-99 [facility] Comment on above: Performed By: #### L 500.2500 ####[facility] [address] [place], [address] Potassium [Moles/Vol] 4.5 mmol/L Normal 3.3-5.1 [facility] Comment on above: Performed By: #### L 500.2500 ####[facility] [address] [place], [address] Sodium [Moles/Vol] 136 mmol/L Normal 133-145 [facility] Comment on above: Performed By: #### L 500.2500 ####[facility] [address] [place], [address] Urea nitrogen [Mass/Vol] 66 mg/dL High 4-19 [facility] Comment on above: Performed By: #### L 500.2500 ####[facility] [address] [place], [address] BUN/CRE 22.9 RATIO High 10-20 [facility] Comment on above: Performed By: #### L 500.2500 ####[facility] [address] [place], [address] Calcium [Mass/Vol] 9.0 mg/dL Normal 7.6-11.0 [facility] Comment on above: Performed By: #### L 500.2500 ####[facility] [address] [place], [address] Chloride [Moles/Vol] 100 mmol/L Normal 98-108 [facility] Comment on above: Performed By: #### L 500.2500 ####[facility] [address] [place], [address] CO2 [Moles/Vol] 16.9 mmol/L Low 21.0-32.0 [facility] Comment on above: Performed By: #### L 500.2500 ####[facility] [address] [place], [address] Creatinine [Mass/Vol] 2.73 mg/dL High 0.70-1.20 [facility] Comment on above: Performed By: #### L 500.2500 ####[facility] [address] [place], [address] ECRCL 18.46 ml/min Low 50-250 [facility] Comment on above: Performed By: #### L 500.2500 ####[facility] [address] [place], [address] GAP 18 High 5-15 [facility] Comment on above: Performed By: #### L 500.2500 ####[facility] [address] [place], [address] GFR/1.73 sq M.predicted among non-blacks MDRD (S/P/Bld) [Vol rate/Area] 23 mL/min/{1.73_m2} Low >60 [facility] Comment on above: Result Comment: mL/m in/1.73m2 CKD-EPI Creatinine Equation (2020) Performed By: #### L 500.2500 ####[facility] [address] [place], [address] Glucose [Mass/Vol] 407 mg/dL High 70-99 [facility] Comment on above: Performed By: #### L 500.2500 ####[facility] [address] [place], [address] Potassium [Moles/Vol] 4.3 mmol/L Normal 3.3-5.1 [facility] Comment on above: Performed By: #### L 500.2500 ####[facility] [address] [place], [address] Sodium [Moles/Vol] 135 mmol/L Normal 133-145 [facility] Comment on above: Performed By: #### L 500.2500 ####[facility] [address] [place], [address] Urea nitrogen [Mass/Vol] 62 mg/dL High 4-19 [facility] Comment on above: Performed By: #### L 500.2500 ####[facility] [address] [place], [address] BUN/CRE 21.7 RATIO High 10-20 [facility] Comment on above: Performed By: #### L 500.2500 ####[facility] [address] [place], [address] Calcium [Mass/Vol] 8.6 mg/dL Normal 7.6-11.0 [facility] Comment on above: Performed By: #### L 500.2500 ####[facility] [address] [place], [address] Chloride [Moles/Vol] 98 mmol/L Normal 98-108 [facility] Comment on above: Performed By: #### L 500.2500 ####[facility] [address] [place], [address] CO2 [Moles/Vol] 13.6 mmol/L Low 21.0-32.0 [facility] Comment on above: Performed By: #### L 500.2500 ####[facility] [address] [place], [address] Creatinine [Mass/Vol] 2.67 mg/dL High 0.70-1.20 [facility] Comment on above: Performed By: #### L 500.2500 ####[facility] [address] [place], [address] ECRCL 18.87 ml/min Low 50-250 [facility] Comment on above: Performed By: #### L 500.2500 ####[facility] [address] [place], [address] GAP 21 High 5-15 [facility] Comment on above: Performed By: #### L 500.2500 ####[facility] [address] [place], [address] GFR/1.73 sq M.predicted among non-blacks MDRD (S/P/Bld) [Vol rate/Area] 23 mL/min/{1.73_m2} Low >60 [facility] Comment on above: Result Comment: mL/m in/1.73m2 CKD-EPI Creatinine Equation (2020) Performed By: #### L 500.2500 ####[facility] [address] [place], [address] Glucose [Mass/Vol] 638 mg/dL Invalid Interpretation Code 70-99 [facility] Comment on above: Result Comment: Crit ical Result(s) Called CRISMULE at: 1553 by:COLETTE??Results read back by same. Performed By: #### L 500.2500 ####[facility] [address] [place], [address] Potassium [Moles/Vol] 4.4 mmol/L Normal 3.3-5.1 [facility] Comment on above: Performed By: #### L 500.2500 ####[facility] [address] [place], [address] Sodium [Moles/Vol] 133 mmol/L Normal 133-145 [facility] Comment on above: Performed By: #### L 500.2500 ####[facility] [address] [place], [address] Urea nitrogen [Mass/Vol] 58 mg/dL High 4-19 [facility] Comment on above: Performed By: #### L 500.2500 ####[facility] [address] [place], [address] BUN/CRE 22.3 RATIO High 10-20 [facility] Comment on above: Performed By: #### L 100.0100, L500.2500, L300.8000 ####[facility] [address] [place], [address] Calcium [Mass/Vol] 8.8 mg/dL Normal 7.6-11.0 [facility] Comment on above: Performed By: #### L 100.0100, L500.2500, L300.8000 ####[facility] [address] [place], [address] Chloride [Moles/Vol] 104 mmol/L Normal 98-108 [facility] Comment on above: Performed By: #### L 100.0100, L500.2500, L300.8000 ####[facility] [address] [place], [address] CO2 [Moles/Vol] 20.8 mmol/L Low 21.0-32.0 [facility] Comment on above: Performed By: #### L 100.0100, L500.2500, L300.8000 ####[facility] [address] [place], [address] Creatinine [Mass/Vol] 1.88 mg/dL High 0.70-1.20 [facility] Comment on above: Performed By: #### L 100.0100, L500.2500, L300.8000 ####[facility] [address] [place], [address] ECRCL 28.20 ml/min Low 50-250 [facility] Comment on above: Performed By: #### L 100.0100, L500.2500, L300.8000 ####[facility] [address] [place], [address] GAP 14 Normal 5-15 [facility] Comment on above: Performed By: #### L 100.0100, L500.2500, L300.8000 ####[facility] [address] [place], [address] GFR/1.73 sq M.predicted among non-blacks MDRD (S/P/Bld) [Vol rate/Area] 35 mL/min/{1.73_m2} Low >60 [facility] Comment on above: Result Comment: mL/m in/1.73m2 CKD-EPI Creatinine Equation (2020) Performed By: #### L 100.0100, L500.2500, L300.8000 ####[facility] [address] [place], [address] Glucose [Mass/Vol] 255 mg/dL High 70-99 [facility] Comment on above: Performed By: #### L 100.0100, L500.2500, L300.8000 ####[facility] [address] [place], [address] Potassium [Moles/Vol] 4.4 mmol/L Normal 3.3-5.1 [facility] Comment on above: Performed By: #### L 100.0100, L500.2500, L300.8000 ####[facility] [address] [place], [address] Sodium [Moles/Vol] 139 mmol/L Normal 133-145 [facility] Comment on above: Performed By: #### L 100.0100, L500.2500, L300.8000 ####[facility] [address] [place], [address] Urea nitrogen [Mass/Vol] 42 mg/dL High 4-19 [facility] Comment on above: Performed By: #### L 100.0100, L500.2500, L300.8000 ####[facility] [address] [place], [address] Basophil percentageOrdered B y: John Aleksandr on 04-03-2025 Basophils/100 WBC (Bld) 0.6 % 0-1 [facility] Bedside Glucoseon 04-03-2025 FINGERSTICK GLU 363 mg/dL High 74-106 [facility] Comment on above: Result Comment: ADITI GEMENT OF PATIENT CARE PER NURSING PROTOCOL Performed By: #### L 501.080 ####[facility] [address] [place], [address] FINGERSTICK GLU 454 mg/dL Invalid Interpretation Code [address] [place] [address] Comment on above: Result Comment: Dr James sim FollowedMANAGEMENT OF PATIENT CARE PER NURSING PROTOCOL Performed By: #### L 501.080 ####[facility] [address] [place], [address] FINGERSTICK GLU 496 mg/dL Invalid Interpretation Code [address] [place] [address] Comment on above: Result Comment: Dr James sim FollowedMANAGEMENT OF PATIENT CARE PER NURSING PROTOCOL Performed By: #### L 501.080 ####[facility] [address] [place], [address] FINGERSTICK GLU > 500 Invalid Interpretation Code [address] [place] [address] Comment on above: Result Comment: ADITI GEMENT OF PATIENT CARE PER NURSING PROTOCOL Performed By: #### L 501.080 ####[facility] [address] [place], [address] FINGERSTICK GLU > 500 Invalid Interpretation Code [address] [place] [address] Comment on above: Result Comment: ADITI GEMENT OF PATIENT CARE PER NURSING PROTOCOL Performed By: #### L 501.080 ####[facility] [address] [place], [address] FINGERSTICK GLU > 500 Invalid Interpretation Code [address] [place] [address] Comment on above: Result Comment: ADITI GEMENT OF PATIENT CARE PER NURSING PROTOCOL Performed By: #### L 501.080 ####[facility] [address] [place], [address] FINGERSTICK GLU 435 mg/dL High [address] [place] [address] Comment on above: Result Comment: ADITI GEMENT OF PATIENT CARE PER NURSING PROTOCOL Performed By: #### L 501.080 ####[facility] [address] [place], [address] Bilirubin, totalOrdered By: Dyana Hwang on 04-03-2025 Bilirubin [Mass/Vol] 0.38 mg/dL 0.00-1.30 [facility] Blood Gases by [facility] 0[facility] FILI TEST Positive Normal [facility] Comment on above: Performed By: #### L 9000.0800 ####[facility] [address] [place], [address] Base excess Calc (Bld) [Moles/Vol] -8 mmol/L Low -2 to +2 [facility] Comment on above: Performed By: #### L 9000.0800 ####[facility] [address] [place], [address] Blood Gas Type ART Normal [facility] Comment on above: Performed By: #### L 9000.0800 ####[facility] [address] [place], [address] CO2 [Moles/Vol] 18 mmol/L Normal [facility] Comment on above: Performed By: #### L 9000.0800 ####[facility] [address] [place], [address] FI02 30.0 Normal [facility] Comment on above: Performed By: #### L 9000.0800 ####[facility] [address] [place], [address] HCO3 (Bld) [Moles/Vol] 17.5 mmol/L Low 22-26 [facility] Comment on above: Performed By: #### L 9000.0800 ####[facility] [address] [place], [address] Mode Not entered [facility] Comment on above: Performed By: #### L 9000.0800 ####[facility] [address] [place], [address] O2 Delivery Dev BiPAP Normal [facility] Comment on above: Performed By: #### L 9000.0800 ####[facility] [address] [place], [address] pCO2 29.8 mmHg Low 35-45 [facility] Comment on above: Performed By: #### L 9000.0800 ####[facility] [address] [place], [address] PEEP 10 Normal [facility] Comment on above: Performed By: #### L 9000.0800 ####[facility] [address] [place], [address] pH (Bld) 7.38 [pH] Normal 7.35-7.45 [facility] Comment on above: Performed By: #### L 9000.0800 ####[facility] [address] [place], [address] PIP 18 Normal [facility] Comment on above: Performed By: #### L 9000.0800 ####[facility] [address] [place], [address] PO2 83 mmHG Normal 75-100 [facility] Comment on above: Performed By: #### L 9000.0800 ####[facility] [address] [place], [address] RR 12 Normal [facility] Comment on above: Performed By: #### L 9000.0800 ####[facility] [address] [place], [address] SITE R Radial Normal [facility] Comment on above: Performed By: #### L 9000.0800 ####[facility] [address] [place], [address] SO2 96 Normal 95-99 [facility] Comment on above: Performed By: #### L 9000.0800 ####[facility] [address] [place], [address] Blood base excess determinat ionOrdered By: Dyana Hwang on 04-03-2025 Base excess Calc (BldV) [Moles/Vol] -8 mmol/L Low -2-2 [facility] Blood bicarbonate measuremen tOrdered By: Dyana Hwang on 04-03-2025 HCO3 (Bld) [Moles/Vol] 17.5 mmol/L Low 22-26 [facility] Blood cultureOrdered By: Elli Brandon on 04-03-2025 Bacteria identified Cx Nom (Bld) No growth in 5 days. [facility] Bacteria identified Cx Nom (Bld) No growth in 5 days. [facility] CBC W/Diff, Automatedon 06 Absolute Lymph 0.43 X10 3/uL Low 0.83-4.51 [facility] Comment on above: Performed By: #### L 100.0100 ####[facility] [address] [place], [address] Absolute Neut 12.4 X10 3/uL High 2.0-7.7 [facility] Comment on above: Performed By: #### L 100.0100 ####[facility] [address] [place], [address] Basophils/100 WBC (Bld) 0.3 % Normal 0-1 [facility] Comment on above: Performed By: #### L 100.0100 ####[facility] [address] [place], [address] Eosinophils/100 WBC (Bld) 0.0 % Normal 0-5 [facility] Comment on above: Performed By: #### L 100.0100 ####[facility] [address] [place], [address] Erythrocyte distribution width (RBC) [Ratio] 13.4 % Normal 11.6-14.6 [facility] Comment on above: Performed By: #### L 100.0100 ####[facility] [address] [place], [address] Hematocrit (Bld) [Volume fraction] 28.9 % Low 40-54 [facility] Comment on above: Performed By: #### L 100.0100 ####[facility] [address] [place], [address] Hemoglobin (Bld) [Mass/Vol] 9.3 g/dL Low 13.0-16.5 [facility] Comment on above: Performed By: #### L 100.0100 ####[facility] [address] [place], [address] IG% 0.500 Normal 0.0-0.9 [facility] Comment on above: Result Comment: IG% - Immature Granulocytes (promyelocytes, myelocytes andmetamyelocytes) > 1% indicates that a LEFT SHIFT is Present. Performed By: #### L 100.0100 ####[facility] [address] [place], [address] Lymphocytes/100 WBC (Bld) 3.3 % Low 19-41 [facility] Comment on above: Performed By: #### L 100.0100 ####[facility] [address] [place], [address] MCH (RBC) [Entitic mass] 30.1 pg Normal 27.0-32.0 [facility] Comment on above: Performed By: #### L 100.0100 ####[facility] [address] [place], [address] MCHC (RBC) [Mass/Vol] 32.2 g/dL Normal 32-36 [facility] Comment on above: Performed By: #### L 100.0100 ####[facility] [address] [place], [address] MCV (RBC) [Entitic vol] 93.5 fL Normal 80-94 [facility] Comment on above: Performed By: #### L 100.0100 ####[facility] [address] [place], [address] Monocytes/100 WBC (Bld) 1.1 % Normal 0-10 [facility] Comment on above: Performed By: #### L 100.0100 ####[facility] [address] [place], [address] Neutrophils/100 WBC (Bld) 94.8 % High 47-70 [facility] Comment on above: Performed By: #### L 100.0100 ####[facility] [address] [place], [address] Nucleated RBC (Bld) [#/Vol] 0 10*3/uL Normal 0-5 [facility] Comment on above: Performed By: #### L 100.0100 ####[facility] [address] [place], [address] Platelet mean volume (Bld) [Entitic vol] 11.4 fL Normal 6.2-12.0 [facility] Comment on above: Performed By: #### L 100.0100 ####[facility] [address] [place], [address] Platelets (Bld) [#/Vol] 268 10*3/uL Normal 150-450 [facility] Comment on above: Performed By: #### L 100.0100 ####[facility] [address] [place], [address] RBC (Bld) [#/Vol] 3.09 10*6/uL Low 4.6-6.2 [facility] Comment on above: Performed By: #### L 100.0100 ####[facility] [address] [place], [address] RDW SD 45.9 fl High 35.1-43.9 [facility] Comment on above: Performed By: #### L 100.0100 ####[facility] [address] [place], [address] WBC (Bld) [#/Vol] 13.0 10*3/uL High 4.4-11.0 [facility] Comment on above: Performed By: #### L 100.0100 ####[facility] [address] [place], [address] Absolute Lymph 2.12 X10 3/uL Normal 0.83-4.51 [facility] Comment on above: Performed By: #### L 100.0100, L500.2500, L300.8000 ####[facility] [address] [place], [address] Absolute Neut 12.0 X10 3/uL High 2.0-7.7 [facility] Comment on above: Performed By: #### L 100.0100, L500.2500, L300.8000 ####[facility] [address] [place], [address] Basophils/100 WBC (Bld) 0.6 % Normal 0-1 [facility] Comment on above: Performed By: #### L 100.0100, L500.2500, L300.8000 ####[facility] [address] [place], [address] Eosinophils/100 WBC (Bld) 1.9 % Normal 0-5 [facility] Comment on above: Performed By: #### L 100.0100, L500.2500, L300.8000 ####[facility] [address] [place], [address] Erythrocyte distribution width (RBC) [Ratio] 13.2 % Normal 11.6-14.6 [facility] Comment on above: Performed By: #### L 100.0100, L500.2500, L300.8000 ####[facility] [address] [place], [address] Hematocrit (Bld) [Volume fraction] 32.2 % Low 40-54 [facility] Comment on above: Performed By: #### L 100.0100, L500.2500, L300.8000 ####[facility] [address] [place], [address] Hemoglobin (Bld) [Mass/Vol] 10.2 g/dL Low 13.0-16.5 [facility] Comment on above: Performed By: #### L 100.0100, L500.2500, L300.8000 ####[facility] [address] [place], [address] IG% 0.600 Normal 0.0-0.9 [facility] Comment on above: Result Comment: IG% - Immature Granulocytes (promyelocytes, myelocytes andmetamyelocytes) > 1% indicates that a LEFT SHIFT is Present. Performed By: #### L 100.0100, L500.2500, L300.8000 ####[facility] [address] [place], [address] Lymphocytes/100 WBC (Bld) 13.5 % Low 19-41 [facility] Comment on above: Performed By: #### L 100.0100, L500.2500, L300.8000 ####[facility] [address] [place], [address] MCH (RBC) [Entitic mass] 29.9 pg Normal 27.0-32.0 [facility] Comment on above: Performed By: #### L 100.0100, L500.2500, L300.8000 ####[facility] [address] [place], [address] MCHC (RBC) [Mass/Vol] 31.7 g/dL Low 32-36 [facility] Comment on above: Performed By: #### L 100.0100, L500.2500, L300.8000 ####[facility] [address] [place], [address] MCV (RBC) [Entitic vol] 94.4 fL High 80-94 [facility] Comment on above: Performed By: #### L 100.0100, L500.2500, L300.8000 ####[facility] [address] [place], [address] Monocytes/100 WBC (Bld) 7.0 % Normal 0-10 [facility] Comment on above: Performed By: #### L 100.0100, L500.2500, L300.8000 ####[facility] [address] [place], [address] Neutrophils/100 WBC (Bld) 76.4 % High 47-70 [facility] Comment on above: Performed By: #### L 100.0100, L500.2500, L300.8000 ####[facility] [address] [place], [address] Nucleated RBC (Bld) [#/Vol] 0 10*3/uL Normal 0-5 [facility] Comment on above: Performed By: #### L 100.0100, L500.2500, L300.8000 ####[facility] [address] [place], [address] Platelet mean volume (Bld) [Entitic vol] 10.8 fL Normal 6.2-12.0 [facility] Comment on above: Performed By: #### L 100.0100, L500.2500, L300.8000 ####[facility] [address] [place], [address] Platelets (Bld) [#/Vol] 300 10*3/uL Normal 150-450 [facility] Comment on above: Performed By: #### L 100.0100, L500.2500, L300.8000 ####[facility] [address] [place], [address] RBC (Bld) [#/Vol] 3.41 10*6/uL Low 4.6-6.2 [facility] Comment on above: Performed By: #### L 100.0100, L500.2500, L300.8000 ####[facility] [address] [place], [address] RDW SD 45.3 fl High 35.1-43.9 [facility] Comment on above: Performed By: #### L 100.0100, L500.2500, L300.8000 ####[facility] [address] [place], [address] WBC (Bld) [#/Vol] 15.7 10*3/uL High 4.4-11.0 [facility] Comment on above: Performed By: #### L 100.0100, L500.2500, L300.8000 ####[facility] [address] [place], [address] CO2 (BldV) [Moles/Vol]Ordere d By: John Brandon on 04-03-2025 CO2 [Moles/Vol] 27 mmol/L 23-33 [facility] CTA Chest W/WO Contraston CTA Chest W/WO Contrast Normal [facility] Calculated very low density lipoprotein (VLDL) cholesterol measurementOrdered By: Dyana Hwang on 04-03-2025 Calculated very low density lipoprotein (VLDL) cholesterol measurement 9 mg/dL 5-40 [facility] Carbon dioxide, total [Moles /volume] in Central venous bloodOrdered By: John Brandon on 04-03-2025 CO2 [Moles/Vol] 20.8 mmol/L Low 21.0-32.0 [facility] Chest 1 View (Portable)on Chest 1 View (Portable) Normal [facility] Chloride assayOrdered By: Shabbir Brandon on 04-03-2025 Chloride [Moles/Vol] 104 mmol/L 98-108 [facility] Comprehensive Metabolic Prof ilon 04-03-2025 Albumin [Mass/Vol] 3.6 g/dL Normal 3.4-4.8 [facility] Comment on above: Performed By: #### L 509.7001, L500.4100, L500.4050, L501.9520 ####[facility] [address] [place], [address] Albumin/Globulin [Mass ratio] 1.5 {ratio} Normal 0.9-2.4 [facility] Comment on above: Performed By: #### L 509.7001, L500.4100, L500.4050, L501.9520 ####[facility] [address] [place], [address] ALK PHOS 80 U/L Normal 40-129 [facility] Comment on above: Performed By: #### L 509.7001, L500.4100, L500.4050, L501.9520 ####[facility] [address] [place], [address] ALT [Catalytic activity/Vol] 16 U/L Normal <=46 [facility] Comment on above: Performed By: #### L 509.7001, L500.4100, L500.4050, L501.9520 ####[facility] [address] [place], [address] AST [Catalytic activity/Vol] 24 U/L Normal <=37 [facility] Comment on above: Performed By: #### L 509.7001, L500.4100, L500.4050, L501.9520 ####[facility] [address] [place], [address] Bilirubin [Mass/Vol] 0.38 mg/dL Normal 0.00-1.30 [facility] Comment on above: Performed By: #### L 509.7001, L500.4100, L500.4050, L501.9520 ####[facility] [address] [place], [address] BUN/CRE 24.6 RATIO High 10-20 [facility] Comment on above: Performed By: #### L 509.7001, L500.4100, L500.4050, L501.9520 ####[facility] [address] [place], [address] Calcium [Mass/Vol] 7.9 mg/dL Normal 7.6-11.0 [facility] Comment on above: Performed By: #### L 509.7001, L500.4100, L500.4050, L501.9520 ####[facility] [address] [place], [address] Chloride [Moles/Vol] 104 mmol/L Normal 98-108 [facility] Comment on above: Performed By: #### L 509.7001, L500.4100, L500.4050, L501.9520 ####[facility] [address] [place], [address] CO2 [Moles/Vol] 15.5 mmol/L Low 21.0-32.0 [facility] Comment on above: Performed By: #### L 509.7001, L500.4100, L500.4050, L501.9520 ####[facility] [address] [place], [address] Creatinine [Mass/Vol] 1.77 mg/dL High 0.70-1.20 [facility] Comment on above: Performed By: #### L 509.7001, L500.4100, L500.4050, L501.9520 ####[facility] [address] [place], [address] ECRCL 28.47 ml/min Low 50-250 [facility] Comment on above: Performed By: #### L 509.7001, L500.4100, L500.4050, L501.9520 ####[facility] [address] [place], [address] GAP 18 High 5-15 [facility] Comment on above: Performed By: #### L 509.7001, L500.4100, L500.4050, L501.9520 ####[facility] [address] [place], [address] GFR/1.73 sq M.predicted among non-blacks MDRD (S/P/Bld) [Vol rate/Area] 38 mL/min/{1.73_m2} Low >60 [facility] Comment on above: Result Comment: mL/m in/1.73m2 CKD-EPI Creatinine Equation (2020) Performed By: #### L 509.7001, L500.4100, L500.4050, L501.9520 ####[facility] [address] [place], [address] Globulin (S) [Mass/Vol] 2.4 g/dL Normal 2.2-4.2 [facility] Comment on above: Performed By: #### L 509.7001, L500.4100, L500.4050, L501.9520 ####[facility] [address] [place], [address] Glucose [Mass/Vol] 428 mg/dL High 70-99 [facility] Comment on above: Performed By: #### L 509.7001, L500.4100, L500.4050, L501.9520 ####[facility] [address] [place], [address] Potassium [Moles/Vol] 4.5 mmol/L Normal 3.3-5.1 [facility] Comment on above: Performed By: #### L 509.7001, L500.4100, L500.4050, L501.9520 ####[facility] [address] [place], [address] Sodium [Moles/Vol] 137 mmol/L Normal 133-145 [facility] Comment on above: Performed By: #### L 509.7001, L500.4100, L500.4050, L501.9520 ####[facility] [address] [place], [address] T PROT 6.0 g/dL Normal 5.9-8.4 [facility] Comment on above: Performed By: #### L 509.7001, L500.4100, L500.4050, L501.9520 ####[facility] [address] [place], [address] Urea nitrogen [Mass/Vol] 44 mg/dL High 4-19 [facility] Comment on above: Performed By: #### L 509.7001, L500.4100, L500.4050, L501.9520 ####[facility] [address] [place], [address] Consultation - Cardiologyon 04-03-2025 Consultation - Cardiology Normal [facility] Consultation - Intensiviston 04-03-2025 Consultation - Licensing Worker Normal [facility] D-Dimer Quantitative (DVT/PE )on 04-03-2025 D-DIMER QUANT 1.86 FEU/ug/m Invalid Interpretation Code 0.27-0.49 [facility] Comment on above: Result Comment: D-Di shyanne ELEVATED (>0.49): Additional studies and clinicalassessments are indicated to conclude diagnosis of:Deep Vein Thrombosis (DVT) or Pulmonary Embolism (PE)CRITICAL VALUE CALLED TO [id number] Victor Hugo Santamaria.RESULTS READ BACK BY SAME. Performed By: #### L 100.0100, L500.2500, L300.8000 ####[facility] [address] [place], [address] Echo Completeon 04-03-2025 Echo Complete Normal [facility] Echocardiogram study reportO rdered By: Koffi Gibbs on 04-03-2025 Study report [facility] [address] [place] [address] Echo Complete 04/03/25 0920 MR#: [id number] Acct: [id number] Name: ENOC ARMANDO Rep #:[id number] : 1945 79 From: Koffi Gibbs MD [...] ~ Date Dictated: 04/03/25919 Date Transcribed: 04/03/251221 Commercial Field Inspector: Signed [facility] Work Phone: Emergency Department Summary on 04-03-2025 Emergency Department Summary Normal [facility] Eosinophil percentageOrdered By: John Brandon on 04-03-2025 Eosinophils/100 WBC (Bld) 1.9 % 0-5 [facility] Erythrocyte distribution wid th ratioOrdered By: John Brandon on 04-03-2025 Erythrocyte distribution width (RBC) [Ratio] 13.2 % 11.6-14.6 [facility] Erythrocyte distribution wid th standard deviationOrdered By: John Brandon on 04-03-2025 Erythrocyte distribution width (RBC) [Ratio] 45.3 fl High 35.1-43.9 [facility] Glomerular filtration rate ( GFR) estimation/1.73 sq m using serum, plasma, or whole bOrdered By: John Brandon on 04-03-2025 GFR/1.73 sq M.predicted among non-blacks MDRD (S/P/Bld) [Vol rate/Area] 35 mL/min/{1.73_m2} Low >60 [facility] Comment on above: mL/min/1.73m2 CKD-EP I Creatinine Equation (2020) H AND P Exam - Hospitaliston 04-03-2025 H&P Exam - Hospitalist Normal [facility] Hematocrit Auto (Bld) [Volum e fraction]Ordered By: John Brandon on 04-03-2025 Hematocrit (Bld) [Volume fraction] 32.2 % Low 40-54 [facility] Hemoglobin measurementOrdere d By: Jonh Brandon on 04-03-2025 Hemoglobin (Bld) [Mass/Vol] 10.2 g/dL Low 13.0-16.5 [facility] Immature granulocytes/100 WB C Auto (Bld)Ordered By: John Brandon on 04-03-2025 Immature granulocytes/100 WBC (Bld) 0.600 % 0.0-0.9 [facility] Comment on above: IG% - Immature Granu locytes (promyelocytes, myelocytes and metamyelocytes) > 1% indicates that a LEFT SHIFT is Present. Influenza virus A and B and SARS-CoV-2 (COVID-19) and Respiratory syncytial virus RNAOrdered By: John Brandon on 04-03-2025 SARS-CoV-2 (COVID-19) RNA ALICE+probe Ql (Unsp spec) [facility] International normalized rat io (INR) calculationOrdered By: Dyana Hwang on 04-03-2025 INR Coag (Bld) [Relative time] 1.0 {INR} [facility] L499.0042on 04-03-2025 Trop T High Sen Normal <=22 [facility] Comment on above: Result Comment: Canc elled via OM: Duplicate Order Performed By: #### L 499.0042 ####[facility] [address] [place], [place], [phone] Trop T High Sen 76 ng/L Invalid Interpretation Code <=22 [facility] Comment on above: Result Comment: Crit ical Result(s) Called at:0312 by:??DASIA SOUZA Results read back by same. Performed By: #### L 499.0042 ####[facility] [address] [place], [address] L499.0043on 04-03-2025 Trop T High Sen Normal <=22 [facility] Comment on above: Result Comment: Canc elled via OM: Duplicate Order Performed By: #### L 499.0043 ####[facility] [address] [place], [address] Trop T High Sen 80 ng/L Invalid Interpretation Code <=22 [facility] Comment on above: Result Comment: Crit ical Result(s) Called at: 0515 by: DASIA JOSEPH??Results read back by same. Performed By: #### L 499.0043 ####[facility] [address] [place], [address] L501.4021on 04-03-2025 Trop T High Sen 58 ng/L Invalid Interpretation Code <=22 [facility] Comment on above: Result Comment: Crit ical Result(s) Called at: 0058 by: DASIA ALBRIGHT??Results read back by same. Performed By: #### L 501.4021, L503.7505 ####[facility] [address] [facility] [place], [address] L503.7505on 04-03-2025 Natriuretic peptide B (Bld) [Mass/Vol] 6552 pg/mL High <=1800 [facility] Comment on above: Result Comment: Hear t Failure Unlikely: < 300 pg/mLHeart Failure Likely< 50 Years: > 450 pg/mL50-75 Years: > 900 pg/mL>75 Years: > 1800 pg/mL Performed By: #### L 501.4021, L503.7505 ####[facility] [address] [place], [address] L509.7001on 04-03-2025 Procalcitonin 0.31 ng/mL High <=0.10 [facility] Comment on above: Result Comment: Inte rpretation:<0.10-0.25 ng/mL: Antibiotic therapy discouraged. Bacterialinfection unlikely.0.25-0.50 ng/mL: Antibiotic therapy encouraged. Bacterialinfection possible.>0.50 ng/mL: Antibiotic therapy strongly encouraged.Suggestive of presence of bacterial infection.PCT should always be interpreted in the clinical context ofthe patient. Therefore, clinicians should use the PCTresults in conjunction with other laboratory findings andclinical signs of the patient. Performed By: #### L 509.7001, L500.4100, L500.4050, L501.9520 ####[facility] [address] [place], [place], [id number] LDL calc ser/plasOrdered By: Dyana Hwang on 04-03-2025 Cholesterol in LDL [Mass/Vol] 80 mg/dL [facility] Comment on above: Quuzufgchm=324-440 m g/dL & Higher Eray=060 mg/dL or greater Laboratory - Chemistry and C hemistry - challengeOrdered By: Dyana Hwang on 04-03-2025 AST [Catalytic activity/Vol] 24 U/L <38 [facility] Lactic Acidon 04-03-2025 Lactate [Moles/Vol] 1.3 mmol/L Normal 0.0-2.0 [facility] Comment on above: Order Comment: Y Performed By: #### L 503.6005, M200.1000 ####[facility] [address] [place], [place], [id number] Lactic acid measurementOrder ed By: John Brandon on 04-03-2025 Lactate [Moles/Vol] 1.3 mmol/L 0.0-2.0 [facility] Legionella Antigen Urineon 0 04-03-2025 LEGU Normal [facility] Comment on above: Performed By: #### M 300.1830 ####[facility] [address] [place], [address] Lipid Profileon 04-03-2025 CHOL:HDL 2.87 Normal [facility] Comment on above: Performed By: #### L 509.7001, L500.4100, L500.4050, L501.9520 ####[facility] [address] [place], [address] Cholesterol [Mass/Vol] 137 mg/dL Normal <=200 [facility] Comment on above: Result Comment: Chol esterol level, Desirable <200 mg/dLBorderline high cholesterol 200-239 mg/dLHigh cholesterol >=240 mg/dLRecommendations of the NCEP Adult Treatment Panel for thefollowing risk-cutoff thresholds for the [place] Americanpopulation. Performed By: #### L 509.7001, L500.4100, L500.4050, L501.9520 ####[facility] [address] [place], [address] Cholesterol in HDL [Mass/Vol] 48 mg/dL Normal [facility] Comment on above: Result Comment: Anastacia onal Cholesterol Education Program (NCEP) guidelines:<40 mg/dL: Low HDL-cholesterol (major risk factor for CHD)>= 60 mg/dL: High HDL-cholesterol (negative risk factor forCHD)HDL-cholesterol is affected by a number of factors, e.g.smoking, exercise, hormones, sex and age. Performed By: #### L 509.7001, L500.4100, L500.4050, L501.9520 ####[facility] [address] [place], [address] Cholesterol in LDL [Mass/Vol] 80 mg/dL Normal [facility] Comment on above: Result Comment: Bord qgztil=474-352 mg/dL Higher Fagk=611 mg/dL or greater Performed By: #### L 509.7001, L500.4100, L500.4050, L501.9520 ####[facility] [address] [place], [address] Cholesterol in VLDL [Mass/Vol] 9 mg/dL Normal 5-40 [facility] Comment on above: Performed By: #### L 509.7001, L500.4100, L500.4050, L501.9520 ####[facility] [address] [place], [address] Triglyceride [Mass/Vol] 44 mg/dL Normal [facility] Comment on above: Result Comment: The drugs N-Acetylcysteine and Metamizole may falselydepress this assay.Normal range: <150 mg/dLBorderline High: 150-199 mg/dLHigh: 200-499 mg/dLVery High: >500 mg/dL Performed By: #### L 509.7001, L500.4100, L500.4050, L501.9520 ####[facility] [address] [place], [address] M100.678on 04-03-2025 M100.678 SARS-CoV-2 (COVID 19) Negative INFLUENZA A Negative INFLUENZA B Negative RSV PCR Negative Normal [facility] Comment on above: Performed By: #### M 100.678 ####[facility] [address] [place], [address] M8200.1075on 04-03-2025 M8200.1075 Pending MRSA PCR MRSA NEGATIVE STAPH. AUREUS PCR STAPH. AUREUS NEGATIVE Normal [facility] Comment on above: Performed By: #### M 8200.1075 ####[facility] [address] [place], [address] MCV (mean corpuscular volume ) determinationOrdered By: John Brandon on 04-03-2025 MCV (RBC) [Entitic vol] 94.4 fL High 80-94 [facility] Magnesiumon 04-03-2025 Magnesium [Mass/Vol] 2.3 mg/dL High 1.5-2.2 [facility] Comment on above: Order Comment: Comme nts: may add to ED labs Performed By: #### L 501.5200, L300.3900, L300.4310 ####[facility] [address] [place], [address] Magnesium measurement (mass/ volume)Ordered By: Dyana Hwang on 04-03-2025 Magnesium (Unsp spec) [Mass/Vol] 2.3 mg/dL High 1.5-2.2 [facility] Mean corpuscular hemoglobin (MCH) determinationOrdered By: John Brandon on 04-03-2025 MCH (RBC) [Entitic mass] 29.9 pg 27.0-32.0 [facility] Mean corpuscular hemoglobin concentration (MCHC) determinationOrdered By: John Brandon on 04-03-2025 MCHC (RBC) [Mass/Vol] 31.7 g/dL Low 32-36 [facility] Mean platelet volume determi nationOrdered By: John Brandon on 04-03-2025 Platelet mean volume (Bld) [Entitic vol] 10.8 fL 6.2-12.0 [facility] Measurement, pHOrdered By: Anabelle Hwang on 04-03-2025 pH (Unsp spec) 7.38 [pH] 7.35-7.45 [facility] Monocyte percentageOrdered B y: John Brandon on 04-03-2025 Monocytes/100 WBC (Bld) 7.0 % 0-10 [facility] Natriuretic peptide.B prohor katja N-Terminal [Mass/volume] in Serum or PlasmaOrdered By: John Brandon on 04-03-2025 Natriuretic peptide.B prohormone N-Terminal [Mass/Vol] 6552 pg/mL High <1800 [facility] Comment on above: Heart Failure Unlike ly: < 300 pg/mLHeart Failure Likely< 50 Years: > 450 pg/mL50-75 Years: > 900 pg/mL>75 Years: > 1800 pg/mL Neutrophil percentageOrdered By: John Brandon on 04-03-2025 Neutrophils/100 WBC (Bld) 76.4 % High 47-70 [facility] No Panel InformationOrdered By: Dyana Hwang on 04-03-2025 Bedside Blood Gas PEEP 10 [facility] Bld Gas Peak Inspiratory Pressure 18 [facility] Blood Gas Respiration Rate 12 [facility] Blood Gas Sample Site R Radial [facility] Blood Gas Specimen Type ART [facility] Blood Gas Vent Mode Not entered [facility] Oxygen Delivery Device BiPAP [facility] ART [facility] R Radial [facility] Not entered [facility] BiPAP [facility] 18 [facility] 12 [facility] 10 [facility] 24 U/L <38 [facility] No Panel InformationOrdered By: John Brandon on 04-03-2025 Blood Gas Clinical Comments 18. 10. 30% [facility] 18. 10. 30% [facility] Nucleated red blood cell per centageOrdered By: John Brandon on 04-03-2025 Nucleated RBC/100 WBC (Bld) [Ratio] 0 % 0-5 [facility] Partial Thromboplast Timeon 04-03-2025 aPTT Coag (Bld) [Time] 212.0 s Invalid Interpretation Code 24.1-36.2 [facility] Comment on above: Result Comment: CRIT ICAL VALUE CALLED TO GordoElizabet CORONA04/03/25 1243 Ness Sal.RESULTS READ BACK BY SAME. Performed By: #### L 300.4310 ####[facility] [address] [place], [address] aPTT Coag (Bld) [Time] 37.3 s High 24.1-36.2 [facility] Comment on above: Performed By: #### L 501.5200, L300.3900, L300.4310 ####[facility] [address] [place], [address] Platelet countOrdered By: Shabbir Brandon on 04-03-2025 Platelets (Bld) [#/Vol] 300 10*3/uL 150-450 [facility] Potassium measurement (mass/ volume)Ordered By: John Brandon on 04-03-2025 Potassium (Unsp spec) [Mass/Vol] 4.4 mmol/L 3.3-5.1 [facility] Procalcitonin [Mass/volume] in Serum or Plasma by ImmunoassayOrdered By: Dyana Hwang on 04-03-2025 Procalcitonin IA [Mass/Vol] 0.31 ng/mL High <0.11 [facility] Comment on above: Interpretation:<0.10 -0.25 ng/mL: Antibiotic [...] Coag (PPP) [Relative time] 1.0 {INR} Normal [facility] Comment on above: Performed By: #### L 501.5200, L300.3900, L300.4310 ####[facility] [address] [place], [address] PT Coag (PPP) [Time] 13.4 s Normal 11.7-14.9 [facility] Comment on above: Performed By: #### L 501.5200, L300.3900, L300.4310 ####[facility] [address] [place], [address] Prothrombin timeOrdered By: Dyana Hwang on 04-03-2025 PT Coag (PPP) [Time] 13.4 s 11.7-14.9 [facility] RBC Auto (Bld) [#/Vol]Ordere d By: John Brandon on 04-03-2025 RBC (Bld) [#/Vol] 3.41 10*6/uL Low 4.6-6.2 [facility] RESPIRATORY PANEL MOLECULARo n 04-03-2025 RP PANEL Normal [facility] Comment on above: Performed By: #### M 100.638 ####[facility] [address] [place], [place], [id number] Respiratory pathogens detect ion panel by molecular detection methodOrdered By: Dyana Hwang on 04-03-2025 Respiratory pathogens DNA and RNA panel ALICE+probe (Resp) [facility] Screening total cholesterol/ high density lipoprotein (HDL) cholesterol ratioOrdered By: Dyana Hwang on 04-03-2025 Cholesterol.total/Cholest santos in HDL [Mass ratio] 2.87 {ratio} [facility] Serum creatinine measurement (mass/volume)Ordered By: John Brandon on 04-03-2025 Creatinine [Mass/Vol] 1.88 mg/dL High 0.70-1.20 [facility] Serum globulin measurementOr dered By: Dyana Hwang on 04-03-2025 Globulin (S) [Mass/Vol] 2.4 g/dL 2.2-4.2 [facility] Serum glucose measurement (m ass/volume)Ordered By: John Brandon on 04-03-2025 Glucose [Mass/Vol] 255 mg/dL High 70-99 [facility] Serum or plasma alanine clayton otransferase (ALT) measurementOrdered By: Dyana Hwang on 04-03-2025 ALT [Catalytic activity/Vol] 16 U/L <47 [facility] Serum or plasma albumin nikkie urement (mass/volume)Ordered By: Dyana Hwang on 04-03-2025 Albumin [Mass/Vol] 3.6 g/dL 3.4-4.8 [facility] Serum or plasma albumin/glob ulin mass ratioOrdered By: Dyana Hwang on 04-03-2025 Albumin/Globulin [Mass ratio] 1.5 {ratio} 0.9-2.4 [facility] Serum or plasma alkaline dwight sphatase measurementOrdered By: Dyana Hwang on 04-03-2025 ALP [Catalytic activity/Vol] 80 U/L 40-129 [facility] Serum or plasma calcium nikkie urement (mass/volume)Ordered By: John Brandon on 04-03-2025 Calcium [Mass/Vol] 8.8 mg/dL 7.6-11.0 [facility] Serum or plasma cholesterol in HDL measurement (mass/volume)Ordered By: Dyana Hwang on 04-03-2025 Cholesterol in HDL [Mass/Vol] 48 mg/dL >40 [facility] Comment on above: National Cholesterol Education Program (NCEP) guidelines:<40 mg/dL: Low HDL-cholesterol (major risk factor for CHD)>= 60 mg/dL: High HDL-cholesterol (negative risk factor for CHD)HDL-cholesterol is affected by a number of factors, e.g. smoking, exercise, hormones, sex and age. Serum or plasma cholesterol measurement (mass/volume)Ordered By: Dyana Hwang on 04-03-2025 Cholesterol [Mass/Vol] 137 mg/dL <201 [facility] Comment on above: Cholesterol level, D esirable <200 mg/dLBorderline high cholesterol 200-239 mg/dLHigh cholesterol >=240 mg/dLRecommendations of the NCEP Adult Treatment Panel for the following risk-cutoff thresholds for the [place] population. Serum or plasma urea nitroge n measurement (mass/volume)Ordered By: John Brandon on 04-03-2025 Urea nitrogen [Mass/Vol] 42 mg/dL High 4-19 [facility] Sodium levelOrdered By: Lesley Brandon on 04-03-2025 Sodium [Moles/Vol] 139 mmol/L 133-145 [facility] Strep pneumoniae Antig(UR,CS F)on 04-03-2025 STPAG Normal [facility] Comment on above: Performed By: #### M 300.4600 ####[facility] [address] [place], [place], [id number] TSH DL <= 0.005 mIU/L QnOrde red By: Dyana Hwang on 04-03-2025 TSH Qn 0.530 uIU/mL 0.300-4.200 [facility] Thyroid Stim Hormone (TSH)on 04-03-2025 TSH 0.530 uIU/mL Normal 0.300-4.200 [facility] Comment on above: Performed By: #### L 509.7001, L500.4100, L500.4050, L501.9520 ####[facility] [address] [place], [place], [id number] Total carbon dioxide measure mentOrdered By: Dyana Hwang on 04-03-2025 CO2 [Moles/Vol] 18 mmol/L [facility] Total proteinOrdered By: Cesilia Hwang on 04-03-2025 Protein [Mass/Vol] 6.0 g/dL 5.9-8.4 [facility] Triglycerides measurementOrd ered By: Dyana Hwang on 04-03-2025 Triglyceride [Mass/Vol] 44 mg/dL <199 [facility] Comment on above: The drugs N-Acetylcy steine and Metamizole may falsely depress this assay. Normal range: <150 mg/dLBorderline High: 150-199 mg/dLHigh: 200-499 mg/dLVery High: >500 mg/dL Troponin T.cardiac [Mass/vol ume] in Serum or Plasma by High sensitivity methodOrdered By: John Brandon on 04-03-2025 Troponin T.cardiac High sensitivity method [Mass/Vol] 80 ng/L High <22 [facility] Comment on above: Critical Result(s) C alled at: 0515 by: DASIA JOSEPH Results read back by same. Troponin T.cardiac High sensitivity method [Mass/Vol] 76 ng/L High <22 [facility] Comment on above: Critical Result(s) C alled at:0312 by: DASIA BOJORQUEZ Results read back by same. Troponin T.cardiac High sensitivity method [Mass/Vol] 58 ng/L High <22 [facility] Comment on above: Critical Result(s) C alled at: 0058 by: DASIA ALBRIGHT Results read back by same. Urine Legionella pneumophila antigen detectionOrdered By: Dyana Hwang on 04-03-2025 L. pneumophila Ag Ql (U) [facility] Urine cultureOrdered By: Cesilia Hwang on 04-03-2025 Bacteria identified Cx Nom (U) Culture exhibits no growth. [facility] Venous Blood Gason Blood Gas Type JUANITA Normal [facility] Comment on above: Performed By: #### L 9000.0810 ####[facility] [address] [place], [address] CO2 [Moles/Vol] 27 mmol/L Normal 23-33 [facility] Comment on above: Performed By: #### L 0.0810 ####[facility] [address] [place], [address] Comment 18. 10. 30% Normal [facility] Comment on above: Performed By: #### L 9000.0810 ####[facility] [address] [place], [address] FI02 30.0 Normal [facility] Comment on above: Performed By: #### L 900.0810 ####[facility] [address] [place], [address] HCO3 (Bld) [Moles/Vol] 26 mmol/L Normal 22-26 [facility] Comment on above: Performed By: #### L 9000.0810 ####[facility] [address] [place], [address] O2 Delivery Dev BiPAP Normal [facility] Comment on above: Performed By: #### L 9000.0810 ####[facility] [address] [place], [address] SITE Not entered Normal [facility] Comment on above: Performed By: #### L 9000.0810 ####[facility] [address] [place], [address] VBG BE 0 mmol/L Normal -1.0-3.5 [facility] Comment on above: Performed By: #### L 9000.0810 ####[facility] [address] [place], [address] VBG pCO2 46.6 mmHg Normal 41-51 [facility] Comment on above: Performed By: #### L 9000.0810 ####[facility] [address] [place], [address] VBG pH 7.35 Normal 7.32-7.42 [facility] Comment on above: Performed By: #### L 9000.0810 ####[facility] [address] [place], [address] VBG PO2 44 mmHg High 25-40 [facility] Comment on above: Performed By: #### L 9000.0810 ####[facility] [address] [place], [address] VBG SO2 76 High 50-70 [facility] Comment on above: Performed By: #### L 9000.0810 ####[facility] [address] [place], [address] Venous blood base excess heriberto surementOrdered By: John Brandon on 04-03-2025 Base excess Calc (BldV) [Moles/Vol] 0 mmol/L -1.0-3.5 [facility] Venous blood bicarbonate heriberto surementOrdered By: John Brandon on 04-03-2025 HCO3 (Bld) [Moles/Vol] 26 mmol/L 22-26 [facility] Venous blood oxygen saturati on measurementOrdered By: John Brandon on 04-03-2025 Oxygen saturation in Blood 76 % High 50-70 [facility] Venous blood pH measurementO rdered By: John Brandon on 04-03-2025 pH (BldV) 7.35 [pH] 7.32-7.42 [facility] Venous blood partial pressur e of carbon dioxide measurementOrdered By: John Brandno on 04-03-2025 CO2 (BldV) [Partial pressure] 46.6 mm[Hg] 41-51 [facility] Venous blood partial pressur e of oxygen measurementOrdered By: John Brandon on 04-03-2025 Oxygen (BldV) [Partial pressure] 44 mm[Hg] High 25-40 [facility] White blood cell (WBC) count Ordered By: John Brandon on 04-03-2025 WBC (Bld) [#/Vol] 15.7 10*3/uL High 4.4-11.0 [facility] BASIC METABOLIC PANEL WITH A NION GAPon 03-24-2025 Calcium [Mass/Vol] 8.6 mg/dL Normal 8.6-10.3 [facility] Comment on above: Performed By: #### 9 8908 #### [facility] [place] [address] Cad Drafter: Jadon Velez MD Chloride [Moles/Vol] 104 mmol/L Normal 98-110 [facility] Comment on above: Performed By: #### 9 4158 #### [facility] [place] [address] Cad Drafter: Jadon Velez MD CO2 [Moles/Vol] 23 mmol/L Normal 20-32 [facility] Comment on above: Performed By: #### 9 5548 #### [facility] [address] Cad Drafter: Jadon Velez MD Creatinine [Mass/Vol] 1.96 mg/dL High 0.70-1.[address] [facility] Comment on above: Performed By: #### 9 2498 #### [facility] [address], [address] [place] [address] Cad Drafter: Jadon Velez MD ELECTROLYTE BALANCE 11 mmol/L (calc) Normal 7-17 [facility] Comment on above: Performed By: #### 9 2498 #### [facility] [address], [address] [place] [address] Cad Drafter: Jadon Velez MD GFR/1.73 sq M.predicted among non-blacks MDRD (S/P/Bld) [Vol rate/Area] 34 mL/min/{1.73_m2} Low > OR = 60 [facility] Comment on above: Performed By: #### 9 2498 #### [facility] [place] [address] Cad Drafter: Jadon Velez MD Glucose [Mass/Vol] 301 mg/dL High 65-99 [facility] Comment on above: Result Comment: Fasting reference interval For someone without known diabetes, a glucose value >125 mg/dL indicates that they may have diabetes and this should be confirmed with a follow-up test. Performed By: #### 9 2498 #### [facility] [address], [address] [place] [address] Cad Drafter: Jadon Velez MD Potassium [Moles/Vol] 4.2 mmol/L Normal 3.5-5.[address] [facility] Comment on above: Performed By: #### 9 2498 #### [facility] [place] [address] Cad Drafter: Jadon Velez MD Sodium [Moles/Vol] 138 mmol/L Normal 135-146 [facility] Comment on above: Performed By: #### 9 4388 #### [facility] [place] [address] Cad Drafter: Jadon Velez MD Urea nitrogen [Mass/Vol] 39 mg/dL High 7-25 [facility] Comment on above: Performed By: #### 9 2498 #### [facility] [address], [address] [place] [id number] Cad Drafter: Jadon Velez MD Urea nitrogen/Creatinine [Mass ratio] 20 mg/mg Normal 6-22 [facility] Comment on above: Performed By: #### 9 2498 #### [facility] [address], [address] [place] [address] Cad Drafter: Jadon Velez MD APTT HEPARIN COVERAGEon 05-0 aPTT Coag (Bld) [Time] 86 s High 23-34 [facility] Comment on above: Order Comment: Thera peutic range for APTT's is 68 - 104 seconds Performed By: #### 4 6848 #### [facility] [address] [place] [address] Moody Martinez M.D. 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 Performed By: #### 4 6124 #### [facility] [address] [place] [address] Moody Martinez M.D. 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 [id number] Urea nitrogen [Mass/Vol] 39 mg/dL High 8-[address] 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 [id number] Urea nitrogen/Creatinine [Mass ratio] 21.7 mg/mg High 10.0-20.[address] 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 [id number] CBCon 03-05-2025 AUTO NRBC 0.0 % Normal [facility] Comment on above: Performed By: #### 4 5218 #### [facility] [address] [place] [address] Moody Martinez M.D. [id number] AUTO NRBC ABS COUNT 0.00 K/mcL Normal 0.00-0.00 [facility] Comment on above: Performed By: #### 4 5218 #### [facility] [address] [place] [address] Moody Martinez M.D. [id number] Erythrocyte distribution width (RBC) [Ratio] 13.0 % Normal 11.6-14.[address] [facility] Comment on above: Performed By: #### 4 5218 #### [facility] [address] [place] [address] Moody Martinez M.D. [id number] Hematocrit (Bld) [Volume fraction] 28.4 % Low 41.0-53.[address] [facility] Comment on above: Performed By: #### 4 5218 #### [facility] [address] [place] [address] Moody Martinez M.D. [id number] Hemoglobin (Bld) [Mass/Vol] 9.3 g/dL Low 13.5-17.[address] [facility] Comment on above: Performed By: #### 4 5218 #### [facility] [address] [place] [address] Moody Martinez M.D. [id number] MCH (RBC) [Entitic mass] 30.3 pg Normal 26.0-34.[address] [facility] Comment on above: Performed By: #### 4 5218 #### [facility] [address] [place] [address] Moody Martinez M.D. [id number] MCV (RBC) [Entitic vol] 92.5 fL Normal 80.0-100.0 [facility] Comment on above: Performed By: #### 4 5218 #### [facility] [address] [place] [address] Moody Martinez M.D. [id number] MEAN CORPUSCULAR HEMOGLOBIN CONC 32.7 g/dL Normal 31.0-37.[address] [facility] Comment on above: Performed By: #### 4 5218 #### [facility] [address] [place] [address] Moody Martinez M.D. [id number] Platelet mean volume (Bld) [Entitic vol] 11.8 fL Normal 9.4-12.[address] [facility] Comment on above: Performed By: #### 4 5218 #### [facility] [address] [place] [address] Moody Martinez M.D. [id number] Platelets (Bld) [#/Vol] 191 10*3/uL Normal 150-[address] [facility] Comment on above: Performed By: #### 4 5218 #### [facility] [address] [place] [address] Moody Martinez M.D. [id number] RBC (Bld) [#/Vol] 3.07 10*6/uL Low 4.50-5.90 [facility] Comment on above: Performed By: #### 4 5218 #### [facility] [address] [place] [address] Moody Martinez M.D. [id number] WBC (Bld) [#/Vol] 9.14 10*3/uL Normal 4.50-11.00 [facility] Comment on above: Performed By: #### 4 5218 #### [facility] [address] [place] [address] Moody Martinez M.D. [id number] MAGNESIUM LEVELon 03-05-2025 Magnesium [Mass/Vol] 2.2 mg/dL Normal 1.6-2.4 [facility] Comment on above: Performed By: #### 4 6109 #### [facility] [address] [place] [address] Moody Martinez M.D. [id number] [facility] Glucose [Mass/Vol] 249 mg/dL High [address] [place] [address] Comment on above: Performed By: #### 4 6932 ####[facility] [address] [place] [address] Moody Martinez M.D. [id number] Glucose [Mass/Vol] 188 mg/dL [address] Comment on above: Performed By: #### 4 6932 ####[facility] [address] [place] [address] Moody Martinez M.D. [id number] Glucose [Mass/Vol] 115 mg/dL [address] Comment on above: Performed By: #### 4 6932 ####[facility] [address] [place] [address] Moody Martinez M.D. [id number] POTASSIUM LEVELon 03-05-2025 Potassium [Moles/Vol] 3.4 mmol/L Low 3.5-5.1 [facility] Comment on above: Performed By: #### 4 6351 ####[facility] [address] [place] [address] Moody Martinez M.D. [id number] APTT HEPARIN COVERAGEon aPTT Coag (d) [Time] 72 s High 23-34 [facility] Comment on above: Order Comment: Thera peutic range for APTT's is 68 - 104 seconds Performed By: #### 4 4014 #### [facility] [address] [place] [address] Moody Martinez M.D. [id number] BASIC METABOLIC PANELon 05-0 Anion gap [Moles/Vol] 16 mmol/L Normal 10-20 [facility] Comment on above: Order Comment: [facility] has implemented the eGFR calculation approach that does not have a coefficient for race that conforms to the NKF-ASN Task Force Recommendations. Performed By: #### 4 6124 #### [facility] [address] [place] [address] Moody Martinez M.D. [id number] Calcium [Mass/Vol] 8.3 mg/dL Low 8.4-10.2 [facility] Comment on above: Order Comment: [facility] has implemented the eGFR calculation approach that does not have a coefficient for race that conforms to the NKF-ASN Task Force Recommendations. Performed By: #### 4 6124 #### [facility] [address] [place] [address] Moody Martinez M.D. [id number] Chloride [Moles/Vol] 103 mmol/L Normal 98-108 [facility] Comment on above: Order Comment: [facility] has implemented the eGFR calculation approach that does not have a coefficient for race that conforms to the NKF-ASN Task Force Recommendations. Performed By: #### 4 6124 #### [facility] [address] [place], [place] [address] Moody Martinez M.D. [id number] Creatinine [Mass/Vol] 1.89 mg/dL High 0.80-1.30 [facility] Comment on above: Order Comment: [facility] has implemented the eGFR calculation approach that does not have a coefficient for race that conforms to the NKF-ASN Task Force Recommendations. Performed By: #### 4 6124 #### [facility] [address] [place] [address] Moody Martinez M.D. [id number] EGFR 35 mL/min/1.73 m2 Low >=60 [facility] Comment on above: Order Comment: [facility] has implemented the eGFR calculation approach that does not have a coefficient for race that conforms to the NKF-ASN Task Force Recommendations. Result Comment: Albin mated GFR was calculated using the 2020 CKD-EPI creatinine equation. Performed By: #### 4 6174 #### [facility] [address] [place] [address] Moody Martinez M.D. [id number] Glucose [Mass/Vol] 190 mg/dL High 65-99 [facility] Comment on above: Order Comment: [facility] has implemented the eGFR calculation approach that does not have a coefficient for race that conforms to the NKF-ASN Task Force Recommendations. Performed By: #### 4 6124 #### [facility] [address] [place] [address] Moody Martinez M.D. [id number] HCO3 (Bld) [Moles/Vol] 25 mmol/L Normal 21-32 [facility] Comment on above: Order Comment: [facility] has implemented the eGFR calculation approach that does not have a coefficient for race that conforms to the NKF-ASN Task Force Recommendations. Performed By: #### 4 6124 #### [facility] [address] [place] [address] Moody Martinez M.D. [id number] Potassium [Moles/Vol] 3.5 mmol/L Normal 3.5-5.1 [facility] Comment on above: Order Comment: [facility] has implemented the eGFR calculation approach that does not have a coefficient for race that conforms to the NKF-ASN Task Force Recommendations. Performed By: #### 4 6124 #### [facility] [address] [place] [address] Moody Martinez M.D. [id number] Sodium [Moles/Vol] 140 mmol/L Normal 135-145 [facility] Comment on above: Order Comment: [facility] has implemented the eGFR calculation approach that does not have a coefficient for race that conforms to the NKF-ASN Task Force Recommendations. Performed By: #### 4 6124 #### [facility] [address] [place] [address] Moody Martinez M.D. [id number] Urea nitrogen [Mass/Vol] 45 mg/dL High 8-[address] [facility] Comment on above: Order Comment: [facility] has implemented the eGFR calculation approach that does not have a coefficient for race that conforms to the NKF-ASN Task Force Recommendations. Performed By: #### 4 6124 #### [facility] [address] [place] [address] Moody Martinez M.D. [id number] Urea nitrogen/Creatinine [Mass ratio] 23.8 mg/mg High 10.0-20.[address] [facility] Comment on above: Order Comment: [facility] has implemented the eGFR calculation approach that does not have a coefficient for race that conforms to the NKF-ASN Task Force Recommendations. Performed By: #### 4 6124 #### [facility] [address] [place] [address] Moody Martinez M.D. [id number] CBCon 03-04-2025 AUTO NRBC 0.0 % Normal [facility] Comment on above: Performed By: #### 4 5218 #### [facility] [address] [place] [address] Moody Martinez M.D. [id number] AUTO NRBC ABS COUNT 0.00 K/mcL Normal 0.00-0.00 [facility] Comment on above: Performed By: #### 4 5218 #### [facility] [address] [place] [address] Moody Martinez M.D. [id number] Erythrocyte distribution width (RBC) [Ratio] 13.1 % Normal 11.6-14.[address] [facility] Comment on above: Performed By: #### 4 [id number] #### LAB [address] [id number] Moody Martinez M.D. [id number] Hematocrit (Bld) [Volume fraction] 28.1 % Low 41.0-53.[address] [facility] Comment on above: Performed By: #### 4 [id number] #### LAB [address] [address] Moody Martinez M.D. [id number] Hemoglobin (Bld) [Mass/Vol] 9.0 g/dL Low 13.5-17.[address] [facility] Comment on above: Performed By: #### 4 [id number] #### LAB [address] [address] Moody Martinez M.D. [id number] MCH (RBC) [Entitic mass] 30.6 pg Normal 26.0-34.[address] [facility] Comment on above: Performed By: #### 4 [id number] #### LAB [address] [address] Moody Martinez M.D. [id number] MCV (RBC) [Entitic vol] 95.6 fL Normal 80.0-100.0 [facility] Comment on above: Performed By: #### 4 [id number] #### LAB [address] [address] Moody Martinez M.D. [id number] MEAN CORPUSCULAR HEMOGLOBIN CONC 32.0 g/dL Normal 31.0-37.[address] [facility] Comment on above: Performed By: #### 4 [id number] #### LAB [address] [address] Moody Martinez M.D. [id number] Platelet mean volume (Bld) [Entitic vol] 11.8 fL Normal 9.4-12.[address] [facility] Comment on above: Performed By: #### 4 [id number] #### LAB [address] [address] Moody Martinez M.D. [id number] Platelets (Bld) [#/Vol] 175 10*3/uL Normal 150-[address] [facility] Comment on above: Performed By: #### 4 [id number] #### LAB [address] [address] Moody Martinez M.D. [id number] RBC (Bld) [#/Vol] 2.94 10*6/uL Low 4.50-5.90 [facility] Comment on above: Performed By: #### 4 [id number] #### LAB [address] [id number] Moody Martinez M.D. [id number] WBC (Bld) [#/Vol] 8.08 10*3/uL Normal 4.50-11.00 [facility] Comment on above: Performed By: #### 4 [id number] #### LAB [address] [address] Moody Martinez M.D. [id number] MAGNESIUM LEVELon 03-04-2025 Magnesium [Mass/Vol] 2.2 mg/dL Normal 1.6-2.4 [facility] Comment on above: Performed By: #### 4 6109 ####[facility] LAB [address] [address] Moody Martinez M.D. [id number] POC GLUCOSE - [facility] 025 Glucose [Mass/Vol] 51 mg/dL Off scale low [address] [place] [address] Comment on above: Order Comment: Criti christian result acted upon time of test. Test performed at bedside. Performed By: #### 4 6932 #### LAB [address] [address] Moody Martinez M.D. [id number] Glucose [Mass/Vol] 354 mg/dL [address] Comment on above: Performed By: #### 4 6932 #### LAB [address] [address] Moody Martinez M.D. [id number] Glucose [Mass/Vol] 338 mg/dL [address] Comment on above: Performed By: #### 4 6932 #### LAB [address] [address] Moody Martinez M.D. [id number] Glucose [Mass/Vol] 258 mg/dL [address] Comment on above: Performed By: #### 4 6932 #### LAB [address] [address] Moody Martinez M.D. [id number] Glucose [Mass/Vol] 242 mg/dL High 65-99 [facility] Comment on above: Performed By: #### 4 6932 #### LAB [address] [address] Moody Martinez M.D. [id number] POTASSIUM LEVELon 03-04-2025 Potassium [Moles/Vol] 4.1 mmol/L Normal 3.5-5.1 [facility] Comment on above: Result Comment: Slig htly Hemolyzed Performed By: #### 4 6351 ####[facility] LAB [address] [address] Moody Martinez M.D. [id number] TROPONIN (ONCE)on 03-04-2025 BASELINE TROPONIN T NG/L 1494 ng/L Off scale high <=[address] [facility] Comment on above: Performed By: #### L [id number] ####[facility] [address] [address] Moody Martinez M.D. [id number] TROPONIN T INTERPRETATION Possible acute cardiac injury. Normal [facility] Comment on above: Performed By: #### L [id number] ####[facility] [address] [address] Moody Martinez M.D. [id number] APTT HEPARIN COVERAGEon aPTT Coag (Bld) [Time] 82 s High 23-34 [facility] Comment on above: Order Comment: Thera peutic range for APTT's is 68 - 104 seconds Performed By: #### 4 6932 #### [facility] LAB [address] [address] Moody Martinez M.D. [id number] aPTT Coag (Bld) [Time] 92 s High 23-34 [facility] Comment on above: Order Comment: Thera peutic range for APTT's is 68 - 104 seconds Performed By: #### 4 6848 ####[facility] LAB [address] [address] Moody Martinez M.D. 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 [id number] BASIC METABOLIC PANELon 05-0 Anion gap [Moles/Vol] 15 mmol/L Normal 10-20 [facility] Comment on above: Order Comment: [facility] has implemented the eGFR calculation approach that does not have a coefficient for race that conforms to the NKF-ASN Task Force Recommendations. Performed By: #### 4 6124 #### LAB [address] [address] Moody Martinez M.D. [id number] Calcium [Mass/Vol] 8.3 mg/dL Low 8.4-10.2 [facility] Comment on above: Order Comment: [facility] has implemented the eGFR calculation approach that does not have a coefficient for race that conforms to the NKF-ASN Task Force Recommendations. Performed By: #### 4 6124 #### LAB [address] [place], [place] [address] Moody Martinez M.D. [id number] Chloride [Moles/Vol] 103 mmol/L Normal 98-108 [facility] Comment on above: Order Comment: [facility] has implemented the eGFR calculation approach that does not have a coefficient for race that conforms to the NKF-ASN Task Force Recommendations. Performed By: #### 4 6124 #### LAB [address] [address] Moody Martinez M.D. [id number] Creatinine [Mass/Vol] 2.09 mg/dL High 0.80-1.30 [facility] Comment on above: Order Comment: [facility] has implemented the eGFR calculation approach that does not have a coefficient for race that conforms to the NKF-ASN Task Force Recommendations. Performed By: #### 4 6124 #### LAB [address] [address] Moody Martinez M.D. [id number] EGFR 31 mL/min/1.73 m2 Low >=60 [facility] Comment on above: Order Comment: [facility] has implemented the eGFR calculation approach that does not have a coefficient for race that conforms to the NKF-ASN Task Force Recommendations. Result Comment: Albin mated GFR was calculated using the 2020 CKD-EPI creatinine equation. Performed By: #### 4 6124 #### LAB [address] [address] Moody Martinez M.D. [id number] Glucose [Mass/Vol] 240 mg/dL High 65-99 [facility] Comment on above: Order Comment: [facility] has implemented the eGFR calculation approach that does not have a coefficient for race that conforms to the NKF-ASN Task Force Recommendations. Performed By: #### 4 6124 #### LAB [address] [address] Moody Martinez M.D. [id number] HCO3 (Bld) [Moles/Vol] 26 mmol/L Normal 21-32 [facility] Comment on above: Order Comment: [facility] has implemented the eGFR calculation approach that does not have a coefficient for race that conforms to the NKF-ASN Task Force Recommendations. Performed By: #### 4 6124 #### LAB [address] [address] Moody Martinez M.D. [id number] Potassium [Moles/Vol] 3.6 mmol/L Normal 3.5-5.1 [facility] Comment on above: Order Comment: [facility] has implemented the eGFR calculation approach that does not have a coefficient for race that conforms to the NKF-ASN Task Force Recommendations. Performed By: #### 4 6124 #### LAB [address] [address] Moody Martinez M.D. [id number] Sodium [Moles/Vol] 140 mmol/L Normal 135-145 [facility] Comment on above: Order Comment: [facility] has implemented the eGFR calculation approach that does not have a coefficient for race that conforms to the NKF-ASN Task Force Recommendations. Performed By: #### 4 6124 #### LAB [address] [address] Moody Martinez M.D. [id number] Urea nitrogen [Mass/Vol] 49 mg/dL High 8-[address] [facility] Comment on above: Order Comment: [facility] has implemented the eGFR calculation approach that does not have a coefficient for race that conforms to the NKF-ASN Task Force Recommendations. Performed By: #### 4 6124 #### LAB [address] [address] Moody Martinez M.D. [id number] Urea nitrogen/Creatinine [Mass ratio] 23.4 mg/mg High 10.0-20.[address] [facility] Comment on above: Order Comment: [facility] has implemented the eGFR calculation approach that does not have a coefficient for race that conforms to the NKF-ASN Task Force Recommendations. Performed By: #### 4 6124 #### LAB [address] [address] Moody Martinez M.D. [id number] CBCon 03-03-2025 AUTO NRBC 0.0 % Normal [facility] Comment on above: Performed By: #### 4 5218 #### LAB [address] [address] Moody Martinez M.D. [id number] AUTO NRBC ABS COUNT 0.00 K/mcL Normal 0.00-0.00 [facility] Comment on above: Performed By: #### 4 5218 #### LAB [address] [address] Moody Martinez M.D. [id number] Erythrocyte distribution width (RBC) [Ratio] 13.5 % Normal 11.6-14.[address] [facility] Comment on above: Performed By: #### 4 5218 #### LAB [address] [address] Moody Martinez M.D. [id number] Hematocrit (Bld) [Volume fraction] 28.5 % Low 41.0-53.[address] [facility] Comment on above: Performed By: #### 4 5218 #### LAB [address] [address] Moody Martinez M.D. [id number] Hemoglobin (Bld) [Mass/Vol] 9.3 g/dL Low 13.5-17.[address] [facility] Comment on above: Performed By: #### 4 5218 #### LAB [address] [address] Moody Martinez M.D. [id number] MCH (RBC) [Entitic mass] 30.8 pg Normal 26.0-34.[address] [facility] Comment on above: Performed By: #### 4 5218 #### LAB [address] [address] Moody Martinez M.D. [id number] MCV (RBC) [Entitic vol] 94.4 fL Normal 80.0-100.0 [facility] Comment on above: Performed By: #### 4 5218 #### LAB [address] [address] Moody Martinez M.D. [id number] MEAN CORPUSCULAR HEMOGLOBIN CONC 32.6 g/dL Normal 31.0-37.[address] [facility] Comment on above: Performed By: #### 4 [id number] #### LAB [address] [address] Moody Martinez M.D. [id number] Platelet mean volume (Bld) [Entitic vol] 11.8 fL Normal 9.4-12.[address] [facility] Comment on above: Performed By: #### 4 5218 #### LAB [address] [address] Moody Martinez M.D. [id number] Platelets (Bld) [#/Vol] 159 10*3/uL Normal 150-[address] [facility] Comment on above: Performed By: #### 4 5218 ####[facility] LAB [address] [address] Moody Martinez M.D. [id number] RBC (Bld) [#/Vol] 3.02 10*6/uL Low 4.50-5.90 [facility] Comment on above: Performed By: #### 4 5218 ####[facility] LAB [address] [address] Moody Martinez M.D. [id number] WBC (Bld) [#/Vol] 10.19 10*3/uL Normal 4.50-11.00 [facility] Comment on above: Performed By: #### 4 5218 ####[facility] LAB [address] [address] Moody Martinez M.D. [id number] MAGNESIUM LEVELon 03-03-2025 Magnesium [Mass/Vol] 2.3 mg/dL Normal 1.6-2.4 [facility] Comment on above: Performed By: #### 4 6109 ####[facility] LAB [address] [address] Moody Martinez M.D. [id number] POC GLUCOSE [facility] 025 Glucose [Mass/Vol] 221 mg/dL High [address] [place] [address] Comment on above: Performed By: #### L [id number] #### [facility] LAB [address] [address] Moody Martinez M.D. [id number] Glucose [Mass/Vol] 189 mg/dL High [address] [place] [address] Comment on above: Performed By: #### 4 6932 ####[facility] LAB [address] [address] Moody Martinez M.D. [id number] Glucose [Mass/Vol] 91 mg/dL Normal [address] [place] [address] Comment on above: Performed By: #### 4 6932 ####[facility] LAB [address] [address] Moody Martinez M.D. [id number] Glucose [Mass/Vol] 146 mg/dL High 65-99 [facility] Comment on above: Performed By: #### 4 6932 #### LAB [address] [address] Moody Martinez M.D. [id number] TROPONIN (ONCE)on 03-03-2025 BASELINE TROPONIN T NG/L 1524 ng/L Off scale high <=[address] [facility] Comment on above: Performed By: #### 4 6932 #### LAB [address] [address] Moody Martinez M.D. [id number] TROPONIN T INTERPRETATION Possible acute cardiac injury. Normal [facility] Comment on above: Performed By: #### 4 6932 #### LAB [address] [address] Moody Martinez M.D. [id number] APTT HEPARIN COVERAGEon aPTT Coag (d) [Time] 97 s High 23-34 [facility] Comment on above: Order Comment: Thera peutic range for APTT's is 68 - 104 seconds Performed By: #### 4 6848 #### LAB [address] [address] Moody Martinez M.D. [id number] BASIC METABOLIC PANELon Anion gap [Moles/Vol] 17 mmol/L Normal 10-20 [facility] Comment on above: Order Comment: [facility] has implemented the eGFR calculation approach that does not have a coefficient for race that conforms to the NKF-ASN Task Force Recommendations. Performed By: #### 4 6124 ####[facility] LAB [address] [address] Moody Martinez M.D. [id number] Calcium [Mass/Vol] 8.7 mg/dL Normal 8.4-10.2 [facility] Comment on above: Order Comment: [facility] has implemented the eGFR calculation approach that does not have a coefficient for race that conforms to the NKF-ASN Task Force Recommendations. Performed By: #### 4 6124 #### LAB [address] [id number] Moody Martinez M.D. [id number] Chloride [Moles/Vol] 101 mmol/L Normal 98-108 [facility] Comment on above: Order Comment: [facility] has implemented the eGFR calculation approach that does not have a coefficient for race that conforms to the NKF-ASN Task Force Recommendations. Performed By: #### 4 6124 ####[facility] LAB [address] [address] Moody Martinez M.D. [id number] Creatinine [Mass/Vol] 2.16 mg/dL High 0.80-1.30 [facility] Comment on above: Order Comment: [facility] has implemented the eGFR calculation approach that does not have a coefficient for race that conforms to the NKF-ASN Task Force Recommendations. Performed By: #### 4 6124 #### LAB [address] [address] Moody Martinez M.D. [id number] EGFR 30 mL/min/1.73 m2 Low >=60 [facility] Comment on above: Order Comment: [facility] has implemented the eGFR calculation approach that does not have a coefficient for race that conforms to the NKF-ASN Task Force Recommendations. Result Comment: Albin mated GFR was calculated using the 2020 CKD-EPI creatinine equation. Performed By: #### 4 6124 ####[facility] LAB [address] [address] Moody Martinez M.D. [id number] Glucose [Mass/Vol] 170 mg/dL High 65-99 [facility] Comment on above: Order Comment: [facility] has implemented the eGFR calculation approach that does not have a coefficient for race that conforms to the NKF-ASN Task Force Recommendations. Performed By: #### 4 6124 ####[facility] LAB [address] [address] Moody Martinez M.D. [id number] HCO3 (Bld) [Moles/Vol] 25 mmol/L Normal 21-32 [facility] Comment on above: Order Comment: [facility] has implemented the eGFR calculation approach that does not have a coefficient for race that conforms to the NKF-ASN Task Force Recommendations. Performed By: #### 4 6124 #### LAB [address] [place], [place] [address] Moody Martinez M.D. [id number] Potassium [Moles/Vol] 3.7 mmol/L Normal 3.5-5.1 [facility] Comment on above: Order Comment: [facility] has implemented the eGFR calculation approach that does not have a coefficient for race that conforms to the NKF-ASN Task Force Recommendations. Performed By: #### 4 6124 #### LAB [address] [address] Moody Martinez M.D. [id number] Sodium [Moles/Vol] 139 mmol/L Normal 135-145 [facility] Comment on above: Order Comment: [facility] has implemented the eGFR calculation approach that does not have a coefficient for race that conforms to the NKF-ASN Task Force Recommendations. Performed By: #### 4 6135 #### LAB [address] [address] Moody Martinez M.D. [id number] Urea nitrogen [Mass/Vol] 44 mg/dL High 8-[address] [facility] Comment on above: Order Comment: [facility] has implemented the eGFR calculation approach that does not have a coefficient for race that conforms to the NKF-ASN Task Force Recommendations. Performed By: #### 4 6167 ####[facility] LAB [address] [address] Moody Martinez M.D. [id number] Urea nitrogen/Creatinine [Mass ratio] 20.4 mg/mg High 10.0-20.[address] [facility] Comment on above: Order Comment: [facility] has implemented the eGFR calculation approach that does not have a coefficient for race that conforms to the NKF-ASN Task Force Recommendations. Performed By: #### 4 6172 ####[facility] LAB [address] [place], [place] [address] Moody Martinez M.D. [id number] CBCon 03-02-2025 AUTO NRBC 0.0 % Normal [facility] Comment on above: Order Comment: Injur y/Trauma or Illness?:Illness/Other How long have you had these symptoms (acute/chronic)?:Acute Reason for exam?:sob History of cancer?:. Surgeries, chemotherapy, or radiation?:cardiac catheterization Type of Exam?:Initial Additional signs and symptoms?:n Performed By: #### 4 5218 #### LAB [address] [place], [place] [address] Moody Martinez M.D. [id number] AUTO NRBC ABS COUNT 0.00 K/mcL Normal 0.00-0.00 [facility] Comment on above: Order Comment: Injur y/Trauma or Illness?:Illness/Other How long have you had these symptoms (acute/chronic)?:Acute Reason for exam?:sob History of cancer?:. Surgeries, chemotherapy, or radiation?:cardiac catheterization Type of Exam?:Initial Additional signs and symptoms?:n Performed By: #### 4 5218 #### LAB [address] [place], [place] [address] Moody Martinez M.D. [id number] Erythrocyte distribution width (RBC) [Ratio] 13.4 % Normal 11.6-14.[address] [facility] Comment on above: Order Comment: Injur y/Trauma or Illness?:Illness/Other How long have you had these symptoms (acute/chronic)?:Acute Reason for exam?:sob History of cancer?:. Surgeries, chemotherapy, or radiation?:cardiac catheterization Type of Exam?:Initial Additional signs and symptoms?:n Performed By: #### 4 5218 #### LAB [address] [address] Moody Martinez M.D. [id number] Hematocrit (Bld) [Volume fraction] 31.3 % Low 41.0-53.[address] [facility] Comment on above: Order Comment: Injur y/Trauma or Illness?:Illness/Other How long have you had these symptoms (acute/chronic)?:Acute Reason for exam?:sob History of cancer?:. Surgeries, chemotherapy, or radiation?:cardiac catheterization Type of Exam?:Initial Additional signs and symptoms?:n Performed By: #### 4 5218 #### LAB [address] [address] Moody Martinez M.D. [id number] Hemoglobin (Bld) [Mass/Vol] 10.3 g/dL Low 13.5-17.[address] [facility] Comment on above: Order Comment: Injur y/Trauma or Illness?:Illness/Other How long have you had these symptoms (acute/chronic)?:Acute Reason for exam?:sob History of cancer?:. Surgeries, chemotherapy, or radiation?:cardiac catheterization Type of Exam?:Initial Additional signs and symptoms?:n Performed By: #### 4 5218 #### LAB [address] [address] Moody Martinez M.D. [id number] MCH (RBC) [Entitic mass] 31.0 pg Normal 26.0-34.[address] [facility] Comment on above: Order Comment: Injur y/Trauma or Illness?:Illness/Other How long have you had these symptoms (acute/chronic)?:Acute Reason for exam?:sob History of cancer?:. Surgeries, chemotherapy, or radiation?:cardiac catheterization Type of Exam?:Initial Additional signs and symptoms?:n Performed By: #### 4 5218 #### LAB [address] [address] Moody Martinez M.D. [id number] MCV (RBC) [Entitic vol] 94.3 fL Normal 80.0-100.0 [facility] Comment on above: Order Comment: Injur y/Trauma or Illness?:Illness/Other How long have you had these symptoms (acute/chronic)?:Acute Reason for exam?:sob History of cancer?:. Surgeries, chemotherapy, or radiation?:cardiac catheterization Type of Exam?:Initial Additional signs and symptoms?:n Performed By: #### 4 5218 #### LAB [address] [address] Moody Martinez M.D. [id number] MEAN CORPUSCULAR HEMOGLOBIN CONC 32.9 g/dL Normal 31.0-37.[address] [facility] Comment on above: Order Comment: Injur y/Trauma or Illness?:Illness/Other How long have you had these symptoms (acute/chronic)?:Acute Reason for exam?:sob History of cancer?:. Surgeries, chemotherapy, or radiation?:cardiac catheterization Type of Exam?:Initial Additional signs and symptoms?:n Performed By: #### 4 5218 #### LAB [address] [address] Moody Martinez M.D. [id number] Platelet mean volume (Bld) [Entitic vol] 11.6 fL Normal 9.4-12.[address] [facility] Comment on above: Order Comment: Injur y/Trauma or Illness?:Illness/Other How long have you had these symptoms (acute/chronic)?:Acute Reason for exam?:sob History of cancer?:. Surgeries, chemotherapy, or radiation?:cardiac catheterization Type of Exam?:Initial Additional signs and symptoms?:n Performed By: #### 4 5218 #### LAB [address] [address] Moody Martinez M.D. [id number] Platelets (Bld) [#/Vol] 176 10*3/uL Normal 150-[address] [facility] Comment on above: Order Comment: Injur y/Trauma or Illness?:Illness/Other How long have you had these symptoms (acute/chronic)?:Acute Reason for exam?:sob History of cancer?:. Surgeries, chemotherapy, or radiation?:cardiac catheterization Type of Exam?:Initial Additional signs and symptoms?:n Performed By: #### 4 5218 #### LAB [address] [address] Moody Martinez M.D. [id number] RBC (Bld) [#/Vol] 3.32 10*6/uL Low 4.50-5.90 [facility] Comment on above: Order Comment: Injur y/Trauma or Illness?:Illness/Other How long have you had these symptoms (acute/chronic)?:Acute Reason for exam?:sob History of cancer?:. Surgeries, chemotherapy, or radiation?:cardiac catheterization Type of Exam?:Initial Additional signs and symptoms?:n Performed By: #### 4 5218 #### LAB [address] [address] Moody Martinez M.D. [id number] WBC (Bld) [#/Vol] 14.08 10*3/uL High 4.50-11.00 [facility] Comment on above: Order Comment: Injur y/Trauma or Illness?:Illness/Other How long have you had these symptoms (acute/chronic)?:Acute Reason for exam?:sob History of cancer?:. Surgeries, chemotherapy, or radiation?:cardiac catheterization Type of Exam?:Initial Additional signs and symptoms?:n Performed By: #### 4 5218 #### LAB [address] [address] Moody Martinez M.D. [id number] AUTO NRBC 0.0 % Normal [facility] Comment on above: Performed By: #### 4 5218 #### LAB [address] [address] Moody Martinez M.D. [id number] AUTO NRBC ABS COUNT 0.00 K/mcL Normal 0.00-0.00 [facility] Comment on above: Performed By: #### 4 5218 #### LAB [address] [address] Moody Martinez M.D. [id number] Erythrocyte distribution width (RBC) [Ratio] 13.4 % Normal 11.6-14.[address] [facility] Comment on above: Performed By: #### 4 5218 #### LAB [address] [address] Moody Martinez M.D. [id number] Hematocrit (Bld) [Volume fraction] 34.4 % Low 41.0-53.[address] [facility] Comment on above: Performed By: #### 4 5218 #### LAB [address] [address] Moody Martinez M.D. [id number] Hemoglobin (Bld) [Mass/Vol] 11.2 g/dL Low 13.5-17.[address] [facility] Comment on above: Performed By: #### 4 [id number] #### LAB [address] [address] Moody Martinez M.D. [id number] MCH (RBC) [Entitic mass] 31.1 pg Normal 26.0-34.[address] [facility] Comment on above: Performed By: #### 4 [id number] #### LAB [address] [address] Moody Martinez M.D. [id number] MCV (RBC) [Entitic vol] 95.6 fL Normal 80.0-100.0 [facility] Comment on above: Performed By: #### 4 [id number] #### LAB [address] [address] Moody Martinez M.D. [id number] MEAN CORPUSCULAR HEMOGLOBIN CONC 32.6 g/dL Normal 31.0-37.[address] [facility] Comment on above: Performed By: #### 4 [id number] #### LAB [address] [address] Moody Martinez M.D. [id number] Platelet mean volume (Bld) [Entitic vol] 11.4 fL Normal 9.4-12.[address] [facility] Comment on above: Performed By: #### 4 [id number] #### LAB [address] [address] Moody Martinez M.D. [id number] Platelets (Bld) [#/Vol] 189 10*3/uL Normal 150-[address] [facility] Comment on above: Performed By: #### 4 [id number] #### LAB [address] [address] Moody Martinez M.D. [id number] RBC (Bld) [#/Vol] 3.60 10*6/uL Low 4.50-5.90 [facility] Comment on above: Performed By: #### 4 [id number] #### LAB [address] [address] Moody Martinez M.D. [id number] WBC (Bld) [#/Vol] 11.96 10*3/uL High 4.50-11.00 [facility] Comment on above: Performed By: #### 4 5218 ####[facility] LAB [address] [place], [place] [address] Moody Martinez M.D. [id number] CONSULTon 03-02-2025 CONSULT General Cardiology Inpatient Consult Heart & Vascular [facility] 03/02/2025 Diogenes Garay MD [facility] Patient: Enoc Armando Date of [...] plan for further details. Diogenes Garay MD [facility] Non-Invasive Cardiology [facility] Subjective Reason for [...] ventricle systolic pressure is 49 mmHg. 10/27/24 [facility] Left Main The vessel is [...] (more content not included)... Normal [facility] ECHOCARDIOGRAM COMPLETEon ECHOCARDIOGRAM COMPLETE Patient Info Name: ENOC ARMANDO Age: 79 years : 1945 Gender: Male Ht: 170 cm Wt: 64 kg BSA: 1.74 m2 HR: 81 bpm BP: 112 / 57 mmHg Heart Rhythm: Sinus Rhythm Technical Quality: Good Exam Date: 03/02/2025 2:27 PM Patient Status: Inpatient Audit Control Clerk: Mikel Olvera RCDS Exam Type: ECHOCARDIOGRAM COMPLETE Study Info Indications - Chest pain R07.9 - Chest pain, unspecified Referring Physician: TANISHA Alves; [id number] BMI: 22.08 kg/m2 Summary 1. Left ventricular [...] mmHg MV VTI [address] [facility] 390 cm/s2 MV PHT 75 ms MV [...] (more content not included)... Normal [facility] MAGNESIUM LEVELon 03-02-2025 Magnesium [Mass/Vol] 2.2 mg/dL Normal 1.6-2.4 [facility] Comment on above: Performed By: #### 4 6109 ####[facility] LAB [address] [place] [address] Moody Martinez M.D. [id number] NT PRO BNPon 03-02-2025 Natriuretic peptide B (Bld) [Mass/Vol] 10963 pg/mL High 0-[address] [facility] Comment on above: Order Comment: Pride Study Cut-offsRule In:< /= 50 Years >450 pg/mL51 Years - 75 Years >900 pg/mL76 Years - 99 Years >1800 pg/mLRule Out:All patients <300 pg/mL Performed By: #### 4 7395 #### LAB [address] [place], [place] [address] Moody Martinez M.D. [id number] POC GLUCOSE [facility] 025 Glucose [Mass/Vol] 287 mg/dL [address] Comment on above: Performed By: #### 4 6932 ####[facility] LAB [address] [address] Moody Martinez M.D. [id number] Glucose [Mass/Vol] 137 mg/dL [address] Comment on above: Performed By: #### 4 6932 ####[facility] LAB [address] [address] Moody Martinez M.D. [id number] Glucose [Mass/Vol] 252 mg/dL [address] Comment on above: Performed By: #### 4 6932 ####[facility] LAB [address] [address] Moody Martinez M.D. [id number] Glucose [Mass/Vol] 332 mg/dL [address] Comment on above: Performed By: #### 4 6932 #### LAB [address] [address] Moody Martinez M.D. [id number] Glucose [Mass/Vol] 286 mg/dL [address] Comment on above: Performed By: #### 4 6932 ####[facility] LAB [address] [address] Moody Martinez M.D. [id number] Glucose [Mass/Vol] 168 mg/dL [address] Comment on above: Performed By: #### L [id number] #### [facility] LAB [address] [address] Moody Martinez M.D. [id number] Glucose [Mass/Vol] 186 mg/dL High 65-99 [facility] Comment on above: Performed By: #### 4 6932 #### LAB [address] [address] Moody Martinez M.D. [id number] POTASSIUM LEVELon 03-02-2025 Potassium [Moles/Vol] 3.9 mmol/L Normal 3.5-5.1 [facility] Comment on above: Performed By: #### 4 6351 #### LAB [address] [address] Moody Martinez M.D. [id number] TROPONIN X 2 (NOW AND REPEAT IN 2 HOURS)on 03-02-2025 TROPONIN T DELTA CHANGE INTERPRETATION Delta troponin requires at least 2 hours between collections. [facility] Comment on above: Performed By: #### 4 6608 #### LAB [address] [address] Moody Martinez M.D. [id number] TROPONIN T NG/L 1447 ng/L Off scale high <=22 [facility] Comment on above: Performed By: #### 4 6608 #### LAB [address] [address] Moody Martinez M.D. [id number] BASELINE TROPONIN T NG/L 1309 ng/L Off scale high <=[address] [facility] Comment on above: Performed By: #### 4 6608 #### LAB [address] [address] Moody Martinez M.D. [id number] TROPONIN T INTERPRETATION Possible acute cardiac injury. [facility] Comment on above: Performed By: #### 4 6608 #### LAB [address] [address] Moody Martinez M.D. [id number] XR CHEST PA/APon 03-02-2025 XR CHEST PA/AP [...] organism, unspecified whether acute organ dysfunction present ([facility]) J18.9 Pneumonia E11.10 DKA (diabetic ketoacidosis) ([facility]) COMPARISON: 02/28/2025. TECHNIQUE: Single portable semierect view. FINDINGS: Cardiac silhouette and mediastinal contours are stable. No pneumothorax or large pleural effusion. There is development of ikeepaso-ae-dlpewb bilateral mixed interstitial and alveolar opacities in both lungs consistent with pulmonary edema; although, underlying pneumonia/aspiration is not excluded. IMPRESSION: Development of zlrwfnpx-ro-dlbjvk mixed interstitial and alveolar opacities in both lungs consistent with pulmonary edema. Underlying pneumonia/aspiration not excluded. No pneumothorax or large pleural effusion. JAR/trw Workstation ID: [id number] Dictated by: KAHLIL VARGHESE on WedMarch 02, 2025 2:36:56 PM EDT Transcribed by: AFUA RALPH on WedMarch 02, 2025 3:15:52 PM EDT Finalized by: KAHLIL VARGHESE on WedMarch 02, 2025 3:23:59 PM EDT Normal [facility] Comment on above: Order Comment: Injur y/Trauma or Illness?:Illness/OtherHow long have you had these symptoms (acute/chronic)?:AcuteReason for exam?:SOBHistory of cancer?:.Surgeries, chemotherapy, or radiation?:cardiac catheterizationType of Exam?:InitialAdditional signs and symptoms?:. BASIC METABOLIC PANELon 05-0 Anion gap [Moles/Vol] 15 mmol/L Normal 10-20 [facility] Comment on above: Order Comment: [facility] has implemented the eGFR calculation approach that does not have a coefficient for race that conforms to the NKF-ASN Task Force Recommendations. Performed By: #### 4 6124 ####[facility] LAB [address] [place], [place] [address] Moody Martinez M.D. [id number] Calcium [Mass/Vol] 8.7 mg/dL Normal 8.4-10.2 [facility] Comment on above: Order Comment: [facility] has implemented the eGFR calculation approach that does not have a coefficient for race that conforms to the NKF-ASN Task Force Recommendations. Performed By: #### 4 6124 #### LAB [address] [place], [place] [address] Moody Martinez M.D. [id number] Chloride [Moles/Vol] 104 mmol/L Normal 98-108 [facility] Comment on above: Order Comment: [facility] has implemented the eGFR calculation approach that does not have a coefficient for race that conforms to the NKF-ASN Task Force Recommendations. Performed By: #### 4 6124 #### LAB [address] [place] [id number] Moody Martinez M.D. [id number] Creatinine [Mass/Vol] 2.49 mg/dL High 0.80-1.30 [facility] Comment on above: Order Comment: [facility] has implemented the eGFR calculation approach that does not have a coefficient for race that conforms to the NKF-ASN Task Force Recommendations. Performed By: #### 4 6124 #### LAB [address] [address] Moody Martinez M.D. [id number] EGFR 25 mL/min/1.73 m2 Low >=60 [facility] Comment on above: Order Comment: [facility] has implemented the eGFR calculation approach that does not have a coefficient for race that conforms to the NKF-ASN Task Force Recommendations. Result Comment: Albin mated GFR was calculated using the 2020 CKD-EPI creatinine equation. Performed By: #### 4 6124 #### LAB [address] [address] Moody Martinez M.D. [id number] Glucose [Mass/Vol] 86 mg/dL Normal 65-99 [facility] Comment on above: Order Comment: [facility] has implemented the eGFR calculation approach that does not have a coefficient for race that conforms to the NKF-ASN Task Force Recommendations. Performed By: #### 4 6124 #### LAB [address] [address] Moody Martinez M.D. [id number] HCO3 (Bld) [Moles/Vol] 26 mmol/L Normal 21-32 [facility] Comment on above: Order Comment: [facility] has implemented the eGFR calculation approach that does not have a coefficient for race that conforms to the NKF-ASN Task Force Recommendations. Performed By: #### 4 6124 #### LAB [address] [place], [place] [address] Moody Martinez M.D. [id number] Potassium [Moles/Vol] 4.2 mmol/L Normal 3.5-5.1 [facility] Comment on above: Order Comment: [facility] has implemented the eGFR calculation approach that does not have a coefficient for race that conforms to the NKF-ASN Task Force Recommendations. Performed By: #### 4 6124 #### LAB [address] [place], [place] [address] Moody Martinez M.D. [id number] Sodium [Moles/Vol] 141 mmol/L Normal 135-145 [facility] Comment on above: Order Comment: [facility] has implemented the eGFR calculation approach that does not have a coefficient for race that conforms to the NKF-ASN Task Force Recommendations. Performed By: #### 4 6124 #### LAB [address] [place], [place] [address] Moody Martinez M.D. [id number] Urea nitrogen [Mass/Vol] 47 mg/dL High 8-[address] [facility] Comment on above: Order Comment: [facility] has implemented the eGFR calculation approach that does not have a coefficient for race that conforms to the NKF-ASN Task Force Recommendations. Performed By: #### 4 6124 #### LAB [address] [place], [place] [address] Moody Martinez M.D. [id number] Urea nitrogen/Creatinine [Mass ratio] 18.9 mg/mg Normal 10.0-20.[address] [facility] Comment on above: Order Comment: [facility] has implemented the eGFR calculation approach that does not have a coefficient for race that conforms to the NKF-ASN Task Force Recommendations. Performed By: #### 4 6124 #### LAB [address] [address] Moody Martinez M.D. [id number] CBCon 03-01-2025 AUTO NRBC 0.0 % Normal [facility] Comment on above: Performed By: #### 4 [id number] #### LAB [address] [address] Moody Martinez M.D. [id number] AUTO NRBC ABS COUNT 0.00 K/mcL Normal 0.00-0.00 [facility] Comment on above: Performed By: #### 4 5218 #### LAB [address] [address] Moody Martinez M.D. [id number] Erythrocyte distribution width (RBC) [Ratio] 13.7 % Normal 11.6-14.[address] [facility] Comment on above: Performed By: #### 4 5218 #### LAB [address] [address] Moody Martinez M.D. [id number] Hematocrit (Bld) [Volume fraction] 29.8 % Low 41.0-53.[address] [facility] Comment on above: Performed By: #### 4 5218 #### LAB [address] [address] Moody Martinez M.D. [id number] Hemoglobin (Bld) [Mass/Vol] 9.9 g/dL Low 13.5-17.[address] [facility] Comment on above: Performed By: #### 4 5218 #### LAB [address] [address] Moody Martinez M.D. [id number] MCH (RBC) [Entitic mass] 31.0 pg Normal 26.0-34.[address] [facility] Comment on above: Performed By: #### 4 5218 #### LAB [address] [address] Moody Martinez M.D. [id number] MCV (RBC) [Entitic vol] 93.4 fL Normal 80.0-100.0 [facility] Comment on above: Performed By: #### 4 5218 #### LAB [address] [address] Moody Martinez M.D. [id number] MEAN CORPUSCULAR HEMOGLOBIN CONC 33.2 g/dL Normal 31.0-37.[address] [facility] Comment on above: Performed By: #### 4 [id number] #### LAB [address] [address] Moody Martinez M.D. [id number] Platelet mean volume (Bld) [Entitic vol] 10.9 fL Normal 9.4-12.[address] [facility] Comment on above: Performed By: #### 4 [id number] #### LAB [address] [address] Moody Martinez M.D. [id number] Platelets (Bld) [#/Vol] 186 10*3/uL Normal 150-[address] [facility] Comment on above: Performed By: #### 4 5218 #### LAB [address] [address] Moody Martinez M.D. [id number] RBC (Bld) [#/Vol] 3.19 10*6/uL Low 4.50-5.90 [facility] Comment on above: Performed By: #### 4 5218 #### LAB [address] [address] Moody Martinez M.D. [id number] WBC (Bld) [#/Vol] 15.37 10*3/uL High 4.50-11.00 [facility] Comment on above: Performed By: #### 4 5218 #### LAB [address] [address] Moody Martinez M.D. [id number] MAGNESIUM LEVELon 03-01-2025 Magnesium [Mass/Vol] 2.1 mg/dL Normal 1.6-2.4 [facility] Comment on above: Performed By: #### 4 6109 #### LAB [address] [address] Moody Martinez M.D. [id number] PHOSPHORUSon 03-01-2025 Phosphate [Mass/Vol] 4.3 mg/dL High 2.3-3.7 [facility] Comment on above: Performed By: #### 4 6299 ####[facility] LAB [address] [address] Moody Martinez M.D. [id number] POC GLUCOSE - [facility] 025 Glucose [Mass/Vol] 249 mg/dL High -[address] [place] [address] Comment on above: Performed By: #### 4 6932 ####[facility] LAB [address] [address] Moody Martinez M.D. [id number] Glucose [Mass/Vol] 79 mg/dL Normal [address] [place] [address] Comment on above: Performed By: #### 4 6932 ####[facility] LAB [address] [address] Moody Martinez M.D. [id number] Glucose [Mass/Vol] 237 mg/dL High [address] [place] [address] Comment on above: Performed By: #### 4 6932 ####[facility] [address] [address] Moody Martinez M.D. [id number] Glucose [Mass/Vol] 85 mg/dL Normal [address] [place] [address] Comment on above: Performed By: #### 4 6932 ####[facility] [address] [address] Moody Martinez M.D. [id number] Glucose [Mass/Vol] 167 mg/dL High [address] [place] [address] Comment on above: Performed By: #### 4 6966 ####[facility] LAB [address] [address] Moody Martinez M.D. [id number] BASIC METABOLIC PANELon 02-01 Anion gap [Moles/Vol] 16 mmol/L Normal 10-20 [facility] Comment on above: Order Comment: [facility] has implemented the eGFR calculation approach that does not have a coefficient for race that conforms to the NKF-ASN Task Force Recommendations. Performed By: #### 4 4014 #### LAB [address] [address] Moody Martinez M.D. [id number] Calcium [Mass/Vol] 9.5 mg/dL Normal 8.4-10.2 [facility] Comment on above: Order Comment: [facility] has implemented the eGFR calculation approach that does not have a coefficient for race that conforms to the NKF-ASN Task Force Recommendations. Performed By: #### 4 4014 #### [facility] LAB [address] [address] Moody Martinez M.D. [id number] Chloride [Moles/Vol] 103 mmol/L Normal 98-108 [facility] Comment on above: Order Comment: [facility] has implemented the eGFR calculation approach that does not have a coefficient for race that conforms to the NKF-ASN Task Force Recommendations. Performed By: #### 4 4014 #### LAB [address] [address] Moody Martinez M.D. [id number] Creatinine [Mass/Vol] 2.61 mg/dL High 0.80-1.30 [facility] Comment on above: Order Comment: [facility] has implemented the eGFR calculation approach that does not have a coefficient for race that conforms to the NKF-ASN Task Force Recommendations. Performed By: #### 4 4014 #### LAB [address] [address] Moody Martinez M.D. [id number] EGFR 24 mL/min/1.73 m2 Low >=60 [facility] Comment on above: Order Comment: [facility] has implemented the eGFR calculation approach that does not have a coefficient for race that conforms to the NKF-ASN Task Force Recommendations. Result Comment: Albin mated GFR was calculated using the 2020 CKD-EPI creatinine equation. Performed By: #### 4 4014 #### LAB [address] [address] Moody Martinez M.D. [id number] Glucose [Mass/Vol] 138 mg/dL High 65-99 [facility] Comment on above: Order Comment: [facility] has implemented the eGFR calculation approach that does not have a coefficient for race that conforms to the NKF-ASN Task Force Recommendations. Performed By: #### 4 4014 #### [facility] LAB [address] [address] Moody Martinez M.D. [id number] HCO3 (Bld) [Moles/Vol] 23 mmol/L Normal 21-32 [facility] Comment on above: Order Comment: [facility] has implemented the eGFR calculation approach that does not have a coefficient for race that conforms to the NKF-ASN Task Force Recommendations. Performed By: #### 4 4014 #### LAB [address] [address] Moody Martinez M.D. [id number] Potassium [Moles/Vol] 4.0 mmol/L Normal 3.5-5.1 [facility] Comment on above: Order Comment: [facility] has implemented the eGFR calculation approach that does not have a coefficient for race that conforms to the NKF-ASN Task Force Recommendations. Performed By: #### 4 4014 #### [facility] LAB [address] [address] Moody Martinez M.D. [id number] Sodium [Moles/Vol] 138 mmol/L Normal 135-145 [facility] Comment on above: Order Comment: [facility] has implemented the eGFR calculation approach that does not have a coefficient for race that conforms to the NKF-ASN Task Force Recommendations. Performed By: #### 4 4014 #### [facility] LAB [address] [address] Moody Martinez M.D. [id number] Urea nitrogen [Mass/Vol] 50 mg/dL High 8-[address] [facility] Comment on above: Order Comment: [facility] has implemented the eGFR calculation approach that does not have a coefficient for race that conforms to the NKF-ASN Task Force Recommendations. Performed By: #### 4 4014 #### LAB [address] [place], [place] [address] Moody Mratinez M.D. [id number] Urea nitrogen/Creatinine [Mass ratio] 19.2 mg/mg Normal 10.0-20.[address] [facility] Comment on above: Order Comment: [facility] has implemented the eGFR calculation approach that does not have a coefficient for race that conforms to the NKF-ASN Task Force Recommendations. Performed By: #### 4 4014 #### [facility] LAB [address] [place], [place] [address] Moody Martinez M.D. [id number] Anion gap [Moles/Vol] 22 mmol/L High 10-20 [facility] Comment on above: Order Comment: Injur y/Trauma or Illness?:Illness/Other How long have you had these symptoms (acute/chronic)?:Acute Reason for exam?:cross clamp of aorta for CPB Type of Exam?:Initial Additional signs and symptoms?:cp Performed By: #### 4 6124 ####[facility] LAB [address] [place], [place] [address] Moody Martinez M.D. [id number] Calcium [Mass/Vol] 9.6 mg/dL Normal 8.4-10.2 [facility] Comment on above: Order Comment: Injur y/Trauma or Illness?:Illness/Other How long have you had these symptoms (acute/chronic)?:Acute Reason for exam?:cross clamp of aorta for CPB Type of Exam?:Initial Additional signs and symptoms?:cp Performed By: #### 4 6124 ####[facility] LAB [address] [place], [place] [address] Moody Martinez M.D. [id number] Chloride [Moles/Vol] 100 mmol/L Normal 98-108 [facility] Comment on above: Order Comment: Injur y/Trauma or Illness?:Illness/Other How long have you had these symptoms (acute/chronic)?:Acute Reason for exam?:cross clamp of aorta for CPB Type of Exam?:Initial Additional signs and symptoms?:cp Performed By: #### 4 6128 #### LAB [address] [place], [place] [address] Moody Martinez M.D. [id number] Creatinine [Mass/Vol] 2.69 mg/dL High 0.80-1.30 [facility] Comment on above: Order Comment: Injur y/Trauma or Illness?:Illness/Other How long have you had these symptoms (acute/chronic)?:Acute Reason for exam?:cross clamp of aorta for CPB Type of Exam?:Initial Additional signs and symptoms?:cp Performed By: #### 4 6124 #### LAB [address] [place], [place] [address] Moody Martinez M.D. [id number] EGFR 23 mL/min/1.73 m2 Low >=60 [facility] Comment on above: Order Comment: Injur y/Trauma or Illness?:Illness/Other How long have you had these symptoms (acute/chronic)?:Acute Reason for exam?:cross clamp of aorta for CPB Type of Exam?:Initial Additional signs and symptoms?:cp Result Comment: Albin mated GFR was calculated using the 2020 CKD-EPI creatinine equation. Performed By: #### 4 6124 #### LAB [address] [place], [place] [address] Moody Martinez M.D. [id number] Glucose [Mass/Vol] 426 mg/dL Off scale high 65-99 [facility] Comment on above: Order Comment: Injur y/Trauma or Illness?:Illness/Other How long have you had these symptoms (acute/chronic)?:Acute Reason for exam?:cross clamp of aorta for CPB Type of Exam?:Initial Additional signs and symptoms?:cp Performed By: #### 4 6124 #### LAB [address] [place], [place] [address] Moody Martinez M.D. [id number] HCO3 (Bld) [Moles/Vol] 19 mmol/L Low 21-32 [facility] Comment on above: Order Comment: Injur y/Trauma or Illness?:Illness/Other How long have you had these symptoms (acute/chronic)?:Acute Reason for exam?:cross clamp of aorta for CPB Type of Exam?:Initial Additional signs and symptoms?:cp Performed By: #### 4 6124 #### LAB [address] [place], [place] [address] Moody Martinez M.D. [id number] Potassium [Moles/Vol] 4.0 mmol/L Normal 3.5-5.1 [facility] Comment on above: Order Comment: Injur y/Trauma or Illness?:Illness/Other How long have you had these symptoms (acute/chronic)?:Acute Reason for exam?:cross clamp of aorta for CPB Type of Exam?:Initial Additional signs and symptoms?:cp Performed By: #### 4 6124 #### LAB [address] [address] Moody Martinez M.D. [id number] Sodium [Moles/Vol] 137 mmol/L Normal 135-145 [facility] Comment on above: Order Comment: Injur y/Trauma or Illness?:Illness/Other How long have you had these symptoms (acute/chronic)?:Acute Reason for exam?:cross clamp of aorta for CPB Type of Exam?:Initial Additional signs and symptoms?:cp Performed By: #### 4 6124 #### LAB [address] [place] [id number] Moody Martinez M.D. [id number] Urea nitrogen [Mass/Vol] 51 mg/dL High 8- [facility] Comment on above: Order Comment: Injur y/Trauma or Illness?:Illness/Other How long have you had these symptoms (acute/chronic)?:Acute Reason for exam?:cross clamp of aorta for CPB Type of Exam?:Initial Additional signs and symptoms?:cp Performed By: #### 4 6124 #### LAB [address] [id number] Moody Martinez M.D. [id number] Urea nitrogen/Creatinine [Mass ratio] 19.0 mg/mg Normal 10.0-20.[address] [facility] Comment on above: Order Comment: Injur y/Trauma or Illness?:Illness/Other How long have you had these symptoms (acute/chronic)?:Acute Reason for exam?:cross clamp of aorta for CPB Type of Exam?:Initial Additional signs and symptoms?:cp Performed By: #### 4 6124 #### LAB [address] [place], [place] [address] Moody Martinez M.D. [id number] Anion gap [Moles/Vol] 27 mmol/L High 10-20 [facility] Comment on above: Order Comment: [facility] has implemented the eGFR calculation approach that does not have a coefficient for race that conforms to the NKF-ASN Task Force Recommendations. Performed By: #### 4 6124 #### LAB [address] [place] [id number] Moody Martinez M.D. [id number] Calcium [Mass/Vol] 9.6 mg/dL Normal 8.4-10.2 [facility] Comment on above: Order Comment: [facility] has implemented the eGFR calculation approach that does not have a coefficient for race that conforms to the NKF-ASN Task Force Recommendations. Performed By: #### 4 6124 #### LAB [address] [place] [address] Moody Martinez M.D. [id number] Chloride [Moles/Vol] 97 mmol/L Low 98-108 [facility] Comment on above: Order Comment: [facility] has implemented the eGFR calculation approach that does not have a coefficient for race that conforms to the NKF-ASN Task Force Recommendations. Performed By: #### 4 6124 #### LAB [address] [place] [address] Moody Martinez M.D. [id number] Creatinine [Mass/Vol] 2.72 mg/dL High 0.80-1.30 [facility] Comment on above: Order Comment: [facility] has implemented the eGFR calculation approach that does not have a coefficient for race that conforms to the NKF-ASN Task Force Recommendations. Performed By: #### 4 6180 #### LAB [address] [place] [id number] Moody Martinez M.D. [id number] EGFR 23 mL/min/1.73 m2 Low >=60 [facility] Comment on above: Order Comment: [facility] has implemented the eGFR calculation approach that does not have a coefficient for race that conforms to the NKF-ASN Task Force Recommendations. Result Comment: Albin mated GFR was calculated using the 2020 CKD-EPI creatinine equation. Performed By: #### 4 6176 #### LAB [address] [place] [address] Moody Martinez M.D. [id number] Glucose [Mass/Vol] 529 mg/dL Off scale high 65-99 [facility] Comment on above: Order Comment: [facility] has implemented the eGFR calculation approach that does not have a coefficient for race that conforms to the NKF-ASN Task Force Recommendations. Performed By: #### 4 6124 ####[facility] LAB [address] [place] [address] Moody Martinez M.D. [id number] HCO3 (Bld) [Moles/Vol] 17 mmol/L Low 21-32 [facility] Comment on above: Order Comment: [facility] has implemented the eGFR calculation approach that does not have a coefficient for race that conforms to the NKF-ASN Task Force Recommendations. Performed By: #### 4 6140 #### LAB [address] [place] [address] Moody Martinez M.D. [id number] Potassium [Moles/Vol] 4.5 mmol/L Normal 3.5-5.1 [facility] Comment on above: Order Comment: [facility] has implemented the eGFR calculation approach that does not have a coefficient for race that conforms to the NKF-ASN Task Force Recommendations. Performed By: #### 4 6124 ####[facility] LAB [address] [place] [address] Moody Martinez M.D. [id number] Sodium [Moles/Vol] 136 mmol/L Normal 135-145 [facility] Comment on above: Order Comment: [facility] has implemented the eGFR calculation approach that does not have a coefficient for race that conforms to the NKF-ASN Task Force Recommendations. Performed By: #### 4 6124 ####[facility] LAB [address] [place], [place] [address] Moody Martinez M.D. [id number] Urea nitrogen [Mass/Vol] 52 mg/dL High 8- [facility] Comment on above: Order Comment: [facility] has implemented the eGFR calculation approach that does not have a coefficient for race that conforms to the NKF-ASN Task Force Recommendations. Performed By: #### 4 6124 #### LAB [address] [place] [address] Moody Martinez M.D. [id number] Urea nitrogen/Creatinine [Mass ratio] 19.1 mg/mg Normal 10.0-20.[address] [facility] Comment on above: Order Comment: [facility] has implemented the eGFR calculation approach that does not have a coefficient for race that conforms to the NKF-ASN Task Force Recommendations. Performed By: #### 4 6124 #### LAB [address] [place] [address] Moody Martinez M.D. [id number] Anion gap [Moles/Vol] 28 mmol/L High 10- [facility] Comment on above: Order Comment: Injur y/Trauma or Illness?:Illness/Other How long have you had these symptoms (acute/chronic)?:Acute Reason for exam?:sob History of cancer?:. Surgeries, chemotherapy, or radiation?:cardiac catheterization Type of Exam?:Initial Additional signs and symptoms?:n Performed By: #### 4 6124 #### LAB [address] [place] [address] Moody Martinez M.D. [id number] Calcium [Mass/Vol] 9.6 mg/dL Normal 8.4-10.2 [facility] Comment on above: Order Comment: Injur y/Trauma or Illness?:Illness/Other How long have you had these symptoms (acute/chronic)?:Acute Reason for exam?:sob History of cancer?:. Surgeries, chemotherapy, or radiation?:cardiac catheterization Type of Exam?:Initial Additional signs and symptoms?:n Performed By: #### 4 6124 #### LAB [address] [place] [address] Moody Martinez M.D. [id number] Chloride [Moles/Vol] 97 mmol/L Low 98-108 [facility] Comment on above: Order Comment: Injur y/Trauma or Illness?:Illness/Other How long have you had these symptoms (acute/chronic)?:Acute Reason for exam?:sob History of cancer?:. Surgeries, chemotherapy, or radiation?:cardiac catheterization Type of Exam?:Initial Additional signs and symptoms?:n Performed By: #### 4 6124 #### LAB [address] [place] [address] Moody Martinez M.D. [id number] Creatinine [Mass/Vol] 2.66 mg/dL High 0.80-1.30 [facility] Comment on above: Order Comment: Injur y/Trauma or Illness?:Illness/Other How long have you had these symptoms (acute/chronic)?:Acute Reason for exam?:sob History of cancer?:. Surgeries, chemotherapy, or radiation?:cardiac catheterization Type of Exam?:Initial Additional signs and symptoms?:n Performed By: #### 4 6124 #### LAB [address] [place] [address] Moody Martinez M.D. [id number] EGFR 23 mL/min/1.73 m2 Low >=60 [facility] Comment on above: Order Comment: Injur y/Trauma or Illness?:Illness/Other How long have you had these symptoms (acute/chronic)?:Acute Reason for exam?:sob History of cancer?:. Surgeries, chemotherapy, or radiation?:cardiac catheterization Type of Exam?:Initial Additional signs and symptoms?:n Result Comment: Albin mated GFR was calculated using the 2020 CKD-EPI creatinine equation. Performed By: #### 4 6124 #### LAB [address] [place] [address] Moody Martinez M.D. [id number] Glucose [Mass/Vol] 514 mg/dL Off scale high 65-99 [facility] Comment on above: Order Comment: Injur y/Trauma or Illness?:Illness/Other How long have you had these symptoms (acute/chronic)?:Acute Reason for exam?:sob History of cancer?:. Surgeries, chemotherapy, or radiation?:cardiac catheterization Type of Exam?:Initial Additional signs and symptoms?:n Performed By: #### 4 6189 #### LAB [address] [place] [address] Moody Martinez M.D. [id number] HCO3 (Bld) [Moles/Vol] 18 mmol/L Low 21-32 [facility] Comment on above: Order Comment: Injur y/Trauma or Illness?:Illness/Other How long have you had these symptoms (acute/chronic)?:Acute Reason for exam?:sob History of cancer?:. Surgeries, chemotherapy, or radiation?:cardiac catheterization Type of Exam?:Initial Additional signs and symptoms?:n Performed By: #### 4 6142 #### LAB [address] [place] [address] Moody Martinez M.D. [id number] Potassium [Moles/Vol] 5.9 mmol/L High 3.5-5.1 [facility] Comment on above: Order Comment: Injur y/Trauma or Illness?:Illness/Other How long have you had these symptoms (acute/chronic)?:Acute Reason for exam?:sob History of cancer?:. Surgeries, chemotherapy, or radiation?:cardiac catheterization Type of Exam?:Initial Additional signs and symptoms?:n Result Comment: Sajan htly Hemolyzed Performed By: #### 4 6128 #### LAB [address] [place] [address] Moody Martinez M.D. [id number] Sodium [Moles/Vol] 137 mmol/L Normal 135-145 [facility] Comment on above: Order Comment: Injur y/Trauma or Illness?:Illness/Other How long have you had these symptoms (acute/chronic)?:Acute Reason for exam?:sob History of cancer?:. Surgeries, chemotherapy, or radiation?:cardiac catheterization Type of Exam?:Initial Additional signs and symptoms?:n Performed By: #### 4 6188 #### LAB [address] [place] [address] Moody Martinez M.D. [id number] Urea nitrogen [Mass/Vol] 50 mg/dL High 8-[address] [facility] Comment on above: Order Comment: Injur y/Trauma or Illness?:Illness/Other How long have you had these symptoms (acute/chronic)?:Acute Reason for exam?:sob History of cancer?:. Surgeries, chemotherapy, or radiation?:cardiac catheterization Type of Exam?:Initial Additional signs and symptoms?:n Performed By: #### 4 6104 #### LAB [address] [place] [address] Moody Martinez M.D. [id number] Urea nitrogen/Creatinine [Mass ratio] 18.8 mg/mg Normal 10.0-20.[address] [facility] Comment on above: Order Comment: Injur y/Trauma or Illness?:Illness/Other How long have you had these symptoms (acute/chronic)?:Acute Reason for exam?:sob History of cancer?:. Surgeries, chemotherapy, or radiation?:cardiac catheterization Type of Exam?:Initial Additional signs and symptoms?:n Performed By: #### 4 6159 #### LAB [address] [place] [address] Moody Martinez M.D. [id number] BETA-HYDROXYBUTYRATEon 02-28 BETA-HYDROXYBUTYRATE < Normal 0.0-0.3 [facility] Comment on above: Performed By: #### 4 5103 ####[facility] LAB [address] [place] [address] Moody Martinez M.D. [id number] BETA-HYDROXYBUTYRATE 1.1 mmol/L High 0.0-0.3 [facility] Comment on above: Performed By: #### 4 5180 ####[facility] LAB [address] [place] [id number] Moody Martinez M.D. [id number] BETA-HYDROXYBUTYRATE 3.3 mmol/L High 0.0-0.3 [facility] Comment on above: Performed By: #### 4 4016 #### LAB [address] [place] [address] Moody Martinez M.D. [id number] BETA-HYDROXYBUTYRATE 3.3 mmol/L High 0.0-0.3 [facility] Comment on above: Performed By: #### 4 4014 #### LAB [address] [place] [address] Moody Martinez M.D. [id number] BLOOD CULTURE AEROBIC/ANAERO BICon 02-28-2025 BLOOD CULTURE AEROBIC/ANAEROBIC BLOOD CULTURE No Growth after [address] [facility] Comment on above: Performed By: #### 4 4014 #### LAB [address] [place] [address] Moody Martinez M.D. [id number] Performed By: #### 4 4014 #### LAB [address] [place] [address] Moody Martinez M.D. [id number] CBC WITH AUTO DIFFERENTIALon 02-28-2025 AUTO NRBC 0.0 % [facility] Comment on above: Performed By: #### L [id number] #### LAB [address] [place] [address] Moody Martinez M.D. [id number] AUTO NRBC ABS COUNT 0.00 K/mcL Normal 0.00-0.00 [facility] Comment on above: Performed By: #### L [id number] #### LAB [address] [place] [address] Moody Martinez M.D. [id number] BASOPHILS ABSOLUTE COUNT 0.05 K/mcL Normal 0.00-0.[address] [facility] Comment on above: Performed By: #### L [id number] #### LAB [address] [place] [address] Moody Martinez M.D. [id number] Basophils/100 WBC (Bld) 0.3 % Normal [facility] Comment on above: Performed By: #### L [id number] #### LAB [address] [place] [address] Moody Martinez M.D. [id number] Eosinophils (Bld) [#/Vol] 0.00 10*3/uL Normal 0.00-0.[address] [place] [address] Comment on above: Performed By: #### L [id number] #### LAB [address] [place] [address] Moody Martinez M.D. [id number] Eosinophils/100 WBC (Bld) 0.0 % Normal [facility] Comment on above: Performed By: #### L [id number] #### LAB [address] [place] [address] Moody Martinez M.D. [id number] Erythrocyte distribution width (RBC) [Ratio] 13.5 % Normal 11.6-14.[address] [facility] Comment on above: Performed By: #### L [id number] #### LAB [address] [place] [address] Moody Martinez M.D. [id number] Hematocrit (Bld) [Volume fraction] 40.2 % Low 41.0-53.[address] [facility] Comment on above: Performed By: #### L [id number] #### LAB [address] [place] [address] Moody Martinez M.D. [id number] Hemoglobin (Bld) [Mass/Vol] 13.1 g/dL Low 13.5-17.[address] [facility] Comment on above: Performed By: #### L [id number] #### LAB [address] [place] [address] Moody Martinez M.D. [id number] IG ABSOLUTE 0.16 K/mcL Normal 0.00-0.[address] [facility] Comment on above: Performed By: #### L [id number] #### LAB [address] [place] [address] Moody Martinez M.D. [id number] IG PERCENT 0.80 % Normal [facility] Comment on above: Result Comment: The IG parameter is the percentage of metamyelocytes, myelocytes and promyelocytes. An immature granulocyte count (IG) of 1% or more suggests the possibility of infection, an IG count of 3% is very likely related to an infection. Performed By: #### L [id number] #### LAB [address] [place] [address] Moody Martinez M.D. [id number] Lymphocytes (Bld) [#/Vol] 1.13 10*3/uL Normal 0.90-4.[address] [facility] Comment on above: Performed By: #### L [id number] #### LAB [address] [place] [address] Moody Martinez M.D. [id number] Lymphocytes/100 WBC (Bld) 6.0 % Normal [facility] Comment on above: Performed By: #### L [id number] #### LAB [address] [place] [address] Moody Martinez M.D. [id number] MCH (RBC) [Entitic mass] 30.8 pg Normal 26.0-34.[address] [facility] Comment on above: Performed By: #### L [id number] #### LAB [address] [place] [address] Moody Martinez M.D. [id number] MCV (RBC) [Entitic vol] 94.6 fL Normal 80.0-100.0 [facility] Comment on above: Performed By: #### L [id number] #### LAB [address] [place] [address] Moody Martinez M.D. [id number] MEAN CORPUSCULAR HEMOGLOBIN CONC 32.6 g/dL Normal 31.0-37.[address] [facility] Comment on above: Performed By: #### L [id number] #### LAB [address] [place] [address] Moody Martinez M.D. [id number] Monocytes (Bld) [#/Vol] 0.91 10*3/uL High 0.30-0.[address] [facility] Comment on above: Performed By: #### L [id number] #### LAB [address] [place] [address] Moody Martinez M.D. [id number] Monocytes/100 WBC (Bld) 4.8 % Normal [facility] Comment on above: Performed By: #### L [id number] #### LAB [address] [place] [address] Moody Martinez M.D. [id number] NEUTROPHILS ABSOLUTE COUNT 16.63 K/mcL High 1.70-7.[address] [facility] Comment on above: Performed By: #### L [id number] #### LAB [address] [place] [address] Moody Martinez M.D. [id number] Neutrophils/100 WBC (Bld) 88.1 % Normal [facility] Comment on above: Performed By: #### L [id number] #### LAB [address] [place] [address] Moody Martinez M.D. [id number] Platelet mean volume (Bld) [Entitic vol] 11.1 fL Normal 9.4-12.[address] [facility] Comment on above: Performed By: #### L [id number] #### LAB [address] [place] [address] Moody Martinez M.D. [id number] Platelets (Bld) [#/Vol] 258 10*3/uL Normal 150-[address] [facility] Comment on above: Performed By: #### L [id number] #### LAB [address] [place] [address] Moody Martinez M.D. [id number] RBC (Bld) [#/Vol] 4.25 10*6/uL Low 4.50-5.90 [facility] Comment on above: Performed By: #### L [id number] #### LAB [address] [place] [address] Moody Martinez M.D. [id number] WBC (Bld) [#/Vol] 18.88 10*3/uL High 4.50-11.00 [facility] Comment on above: Performed By: #### L [id number] #### LAB [address] [place] [address] Moody Martinez M.D. [id number] COVID-19/INFLUENZA A,B MOLEC ULARon 02-28-2025 SARS-CoV-2 (COVID-19) Ab IA Ql SARS-COV-2 (FERDINAND) Not Detected INFLUENZA A (FERDINAND) Not Detected INFLUENZA B (FERDINAND) Not Detected Normal Not Detected [facility] Comment on above: Performed By: #### L [id number] #### LAB [address] [place], [place] [address] Moody Martinez M.D. [id number] CRP, INFLAMMATIONon 02-29-20 CRP (INFLAMMATION) < Normal 0.0-10.0 [facility] Comment on above: Performed By: #### 4 5334 #### LAB [address] [place], [place] [address] Moody Martinez M.D. [id number] D-DIMER, QUANTITATIVEon 02-01 D-DIMER QUANTITATIVE 1.67 mcg/mL FEU High 0.27-0.[address] [facility] Comment [...] By: #### 4 5434 #### LAB [address] [place], [place] [address] Moody Martinez M.D. [id number] ED Procedureon 02-28-2025 ED Procedure ECG 12 Lead Date/Time: 02/28/2025 4:33 AM Performed by: Conchita Yañez MD Authorized by: Conchita Yañez MD Interpreted by ED attending physician Rhythm: sinus rhythm and sinus tachycardia BPM: 103 Clinical impression: sinus tachycardia Comments: OR interval 144 QRS duration 90 QTc 437 AUTHENTICATED BY CONCHITA YAÑEZ, ON 02/28/2025 04:33:[address] [facility] ED Procedure EKG 12-lead Date/Time: 02/28/2025 3:26 AM Performed by: Conchita Yañez MD Authorized by: Conchita Yñaez MD Interpreted by ED attending physician Rhythm: sinus rhythm BPM: 88 Comments: OR interval 162 QRS duration 102 QTc 491 T wave inversion in lead III and aVF as well as V5 V6 AUTHENTICATED BY CONCHITA YAÑEZ, ON 02/28/2025 03:26:[address] [facility] ED Prov Noteon 02-28-2025 ED Prov Note [facility] EMERGENCY DEPARTMENT ATTENDING NOTE: NAME: Enoc Armando CSN: [id number] 79 y.o. 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 Normal [facility] HEMOGLOBIN A1Con 02-28-2025 Glucose [Mass/Vol] 171 mg/dL High 74-114 [facility] Comment on above: Performed By: #### 4 8202 ####[facility] LAB [address] [place], [place] [address] Moody Martinez M.D. [id number] HbA1c (Bld) [Mass fraction] 7.6 % High 4.2-5.[address] [facility] Comment on above: Performed By: #### 4 8202 ####[facility] LAB [address] [place], [place] [address] Moody Martinez M.D. [id number] LACTIC ACID, PLASMAon 2024 LACTIC ACID, PLASMA 2.9 mmol/L High 0.6-2.0 [facility] Comment on above: Performed By: #### 4 4014 #### LAB [address] [place], [place] [address] Moody Martinez M.D. [id number] LEGIONELLA ANTIGEN, URINEon 02-28-2025 LEGIONELLA ANTIGEN, URINE LEGIONELLA ANT IGEN Negative for Legionella antigen COMMENT: Results may be affected if patient is on diuretics. INTERPRETATION OF RESULTS: Test detects Legionella pneumophilia serogroup 1 antigens in urine. Legionnaires disease cannot be ruled out since other serogroups and species may also cause disease. Normal [facility] Comment on above: Performed By: #### 4 4090 #### LAB [address] [place] [address] Moody Martinez M.D. [id number] MRSA DNA AMPLIFIED PROBEon 0 02-28-2025 MRSA DNA AMPLIFIED PROBE Negative Normal Not Detected, MRSA NEGATIVE [facility] Comment on above: Performed By: #### 4 8061 #### LAB [address] [place] [address] Moody Martinez M.D. [id number] NT PRO BNPon 02-28-2025 Natriuretic peptide B (Bld) [Mass/Vol] 9634 pg/mL High 0-[address] [facility] Comment on above: Order Comment: Injur y/Trauma or Illness?:Illness/Other How long have you had these symptoms (acute/chronic)?:Acute Reason for exam?:sob History of cancer?:. Surgeries, chemotherapy, or radiation?:cardiac catheterization Type of Exam?:Initial Additional signs and symptoms?:n Performed By: #### 4 7395 #### LAB [address] [place], [place] [address] Moody Martinez M.D. [id number] Natriuretic peptide B (Bld) [Mass/Vol] 3396 pg/mL High 0-[address] [facility] Comment on above: Order Comment: Pride Study Cut-offsRule In:< /= 50 Years >450 pg/mL51 Years - 75 Years >900 pg/mL76 Years - 99 Years >1800 pg/mLRule Out:All patients <300 pg/mL Performed By: #### 4 7346 ####[facility] LAB [address] [place], [place] [address] Moody Martinez M.D. [id number] OSMOLALITYon 02-28-2025 Osmolality [Osmolality] 328 mosm/kg High 275-[address] [facility] Comment on above: Performed By: #### 4 6230 #### LAB [address] [place], [place] [address] Moody Martinez M.D. [id number] PHOSPHORUSon 02-28-2025 Phosphate [Mass/Vol] 2.5 mg/dL Normal 2.3-3.7 [facility] Comment on above: Performed By: #### 4 6299 #### LAB [address] [place] [address] Moody Martinez M.D. [id number] Phosphate [Mass/Vol] 2.7 mg/dL Normal 2.3-3.7 [facility] Comment on above: Performed By: #### 4 6299 #### LAB [address] [place] [address] Moody Martinez M.D. [id number] Phosphate [Mass/Vol] 3.5 mg/dL Normal 2.3-3.7 [facility] Comment on above: Performed By: #### 4 6299 #### LAB [address] [place] [id number] Moody Martinez M.D. [id number] POC GLUCOSE - [facility] 025 Glucose [Mass/Vol] 236 mg/dL [address] Comment on above: Performed By: #### 4 6932 ####[facility] LAB [address] [place] [address] Moody Martinez M.D. [id number] Glucose [Mass/Vol] 153 mg/dL [address] Comment on above: Performed By: #### L [id number] #### [facility] [address] [place] [address] Moody Martinez M.D. [id number] Glucose [Mass/Vol] 57 mg/dL Low [address] [place] [address] Comment on above: Performed By: #### 4 6932 ####[facility] LAB [address] [place] [address] Moody Martinez M.D. [id number] Glucose [Mass/Vol] 73 mg/dL Normal [address] [place] [address] Comment on above: Performed By: #### 4 6932 ####[facility] LAB [address] [place] [address] Moody Martinez M.D. [id number] Glucose [Mass/Vol] 102 mg/dL High [address] [place] [address] Comment on above: Performed By: #### L [id number] #### [facility] [address] [place] [address] Moody Martinez M.D. [id number] Glucose [Mass/Vol] 119 mg/dL High [address] [place] [address] Comment on above: Performed By: #### 4 6932 #### LAB [address] [place] [address] Moody Martinez M.D. [id number] Glucose [Mass/Vol] 146 mg/dL High [address] [place] [address] Comment on above: Performed By: #### 4 6932 #### LAB [address] [place] [address] Moody Martinez M.D. [id number] Glucose [Mass/Vol] 177 mg/dL High [address] [place] [address] Comment on above: Performed By: #### 4 6932 #### LAB [address] [place] [address] Moody Martinez M.D. [id number] Glucose [Mass/Vol] 241 mg/dL High [address] [place] [address] Comment on above: Performed By: #### 4 6932 ####[facility] [address] [place] [address] Moody Martinez M.D. [id number] Glucose [Mass/Vol] 326 mg/dL High [address] [place] [address] Comment on above: Performed By: #### 4 6932 ####[facility] LAB [address] [place] [address] Moody Martinez M.D. [id number] Glucose [Mass/Vol] 429 mg/dL Off scale high [address] [place] [address] Comment on above: Order Comment: Criti christian result acted upon time of test. Test performed at bedside. Performed By: #### 4 6932 #### LAB [address] [place] [address] Moody Martinez M.D. [id number] POC GLUCOSE > Off scale high [address] [place] [address] Comment on above: Order Comment: Criti christian result acted upon time of test. Test performed at bedside. Performed By: #### 4 6932 ####[facility] LAB [address] [place] [address] Moody Martinez M.D. [id number] POC GLUCOSE > Off scale 27 [address] Comment on above: Order Comment: Criti christian result acted upon time of test. Test performed at bedside. Performed By: #### 4 6932 ####[facility] [address] [address] Moody Martinez M.D. [id number] POC VENOUS BLOOD GAS PANEL-P [facility] 02-28-2025 BASE EXCESS, VENOUS -5.7 Low -2.0-2.0 [facility] Comment on above: Performed By: #### 4 8717 ####[facility] [address] [address] Moody Martinez M.D. [id number] FIO2 [address] [facility] Comment on above: Performed By: #### 4 8717 #### LAB [address] [address] Moody Martinez M.D. [id number] HCO3 (Bld) [Moles/Vol] 19.3 mmol/L Low 24.0-28.0 [facility] Comment on above: Performed By: #### 4 8717 #### LAB [address] [address] Moody Martinez M.D. [id number] Hematocrit (Bld) [Volume fraction] 37.3 % Low 41.0-53.[address] [facility] Comment on above: Performed By: #### 4 8717 #### LAB [address] [address] Moody Martinez M.D. [id number] Hemoglobin (Bld) [Mass/Vol] 12.2 g/dL Low 13.5-17.[address] [facility] Comment on above: Performed By: #### 4 8717 #### LAB [address] [address] Moody Martinez M.D. [id number] Oxygen saturation in Blood 93.7 % High 40.0-70.[address] [facility] Comment on above: Performed By: #### 4 8717 #### LAB [address] [address] Moody Martinez M.D. [id number] PCO2 VENOUS 35.1 mm Hg Low 41.0-51.[address] [facility] Comment on above: Performed By: #### 4 8717 #### LAB [address] [address] Moody Martinez M.D. [id number] PH VENOUS 7.35 Normal 7.32-7.[address] [facility] Comment on above: Performed By: #### 4 8717 #### LAB [address] [address] Moody Martinez M.D. [id number] PO2 VENOUS 68 mm Hg High 25-[address] [facility] Comment on above: Performed By: #### 4 8717 #### LAB [address] [address] Moody Martinez M.D. [id number] RESP RATE RAD [address] [facility] Comment on above: Performed By: #### 4 8717 #### LAB [address] [address] Moody Martinez M.D. [id number] SPECIMEN SOURCE RADIANCE Not specified [facility] Comment on above: Performed By: #### 4 8717 #### LAB [address] [address] Moody Martinez M.D. [id number] BASE EXCESS, VENOUS -5.9 Low -2.0-2.0 [facility] Comment on above: Performed By: #### 4 8717 ####[facility] [address] [address] Moody Martinez M.D. [id number] HCO3 (Bld) [Moles/Vol] 20.5 mmol/L Low 24.0-28.0 [facility] Comment on above: Performed By: #### 4 8717 ####[facility] [address] [address] Moody Martinez M.D. [id number] Hematocrit (Bld) [Volume fraction] 42.0 % Normal 41.0-53.[address] [facility] Comment on above: Performed By: #### 4 8717 ####[facility] [address] [address] Moody Martinez M.D. [id number] Hemoglobin (Bld) [Mass/Vol] 13.7 g/dL Normal 13.5-17.[address] [facility] Comment on above: Performed By: #### 4 8717 #### LAB [address] [address] Moody Martinez M.D. [id number] LITER FLOW [address] [facility] Comment on above: Performed By: #### 4 8717 #### LAB [address] [address] Moody Martinez M.D. [id number] Oxygen saturation in Blood 50.9 % Normal 40.0-70.[address] [facility] Comment on above: Performed By: #### 4 8717 ####[facility] [address] [address] Moody Martinez M.D. [id number] PCO2 VENOUS 43.1 mm Hg Normal 41.0-51.[address] [facility] Comment on above: Performed By: #### 4 8717 ####[facility] [address] [address] Moody Martinez M.D. [id number] PH VENOUS 7.29 Low 7.32-7.[address] [facility] Comment on above: Performed By: #### 4 8717 #### LAB [address] [address] Moody Martinez M.D. [id number] PO2 VENOUS 30 mm Hg Normal 25-[address] [facility] Comment on above: Performed By: #### 4 8717 #### LAB [address] [address] Moody Martinez M.D. [id number] SPECIMEN SOURCE RADIANCE Not specified Normal [facility] Comment on above: Performed By: #### 4 8717 #### LAB [address] [address] Moody Martinez M.D. [id number] PROCALCITONINon 02-28-2025 PROCALCITONIN 0.18 ng/ml Normal <0.[address] [facility] Comment on above: Order Comment: Resul ts <0.50 ng/ml represent a low risk of severe sepsis and/or septic shock. Performed By: #### 4 6932 #### LAB [address] [address] Moody Martinez M.D. [id number] REFLEX LACTIC ACID, PLASMAon 02-28-2025 LACTIC ACID, PLASMA 2.0 mmol/L Normal 0.6-2.0 [facility] Comment on above: Performed By: #### 4 4014 #### LAB [address] [address] Moody Martinez M.D. [id number] LACTIC ACID, PLASMA 3.5 mmol/L High 0.6-2.0 [facility] Comment on above: Performed By: #### L [id number] #### LAB [address] [address] Moody Martinez M.D. [id number] RESPIRATORY PCR PANELon 02-01 RESPIRATORY PCR PANEL [...] Not Detected Normal Not Detected [facility] Comment on above: Performed By: #### L [id number] ####[facility] [address] [address] Jose Cisse M.D. [id number] S.PNEUMONIAE URINE ANTIGENon 02-28-2025 S.PNEUMONIAE URINE ANTIGEN STREP PNEUMONIAE ANTIGEN, URINE Presumptive Negative for Pneumococcal pneumoniae A negative result does not rule out Streptococcus pneumoniae infection since the antigen present in the sample may be below the detection limit of the test. Normal [facility] Comment on above: Performed By: #### 4 7222 #### LAB [address] [address] Moody Martinez M.D. [id number] SEDIMENTATION RATEon 025 SEDIMENTATION RATE, ERYTHROCYTE 16 mm/hr Normal 0-[address] [facility] Comment on above: Performed By: #### 4 6477 #### LAB [address] [place], [place] [address] Moody Martinez M.D. [id number] TROPONIN X 2 (NOW AND REPEAT IN 2 HOURS)on 02-28-2025 TROPONIN T DELTA % NG/L 176 % Off scale high <2 0% of Baseline Troponin [facility] Comment on above: Performed By: #### 4 6608 #### LAB [address] [place], [place] [address] Moody Martinez M.D. [id number] TROPONIN T DELTA CHANGE INTERPRETATION Probable acute injury or myocardial infarction. Normal [facility] Comment on above: Performed By: #### 4 6608 #### LAB [address] [id number] Moody Martinez M.D. [id number] TROPONIN T NG/L 207 ng/L Off scale high <=22 [facility] Comment on above: Performed By: #### 4 6608 #### LAB [address] [address] Moody Martinez M.D. [id number] BASELINE TROPONIN T NG/L 75 ng/L Off scale high <=[address] [facility] Comment on above: Performed By: #### 4 4014 #### LAB [address] [address] Moody Martinez M.D. [id number] TROPONIN T INTERPRETATION Possible acute cardiac injury. Normal [facility] Comment on above: Performed By: #### 4 4014 #### LAB [address] [address] Moody Martinez M.D. [id number] TSH WITH REFLEX FREE T4on TSH Qn 0.61 m[IU]/L Normal 0.27-4.[address] [facility] Comment on above: Performed By: #### 4 6612 #### LAB [address] [address] Moody Martinez M.D. [id number] URINALYSISon 02-28-2025 BACTERIA, URINE None Seen Normal None Seen [facility] Comment [...] By: #### 4 6625 #### LAB [address] [address] Moody Martinez M.D. [id number] BILIRUBIN, URINE Negative Normal Negative [facility] Comment on above: Order Comment: Micro scopic examination is performed on all urinalysis samples and only positive findings are reported. The test for blood on the chemical analytic portion of urinalysis may also be positive due to hemoglobinuria and myoglobinuria and if red blood cells are present they are quantified by microscopic examination. Performed By: #### 4 6625 #### LAB [address] [address] Moody Martinez M.D. [id number] BLOOD, URINE Negative Normal Negative [facility] Comment [...] By: #### 4 6625 #### LAB [address] [address] Moody Martinez M.D. [id number] Clarity (U) Clear Normal Clear [facility] Comment [...] By: #### 4 6625 #### LAB [address] [address] Moody Martinez M.D. [id number] Color (U) Yellow Normal Colorless, Yellow [facility] Comment [...] By: #### 4 6625 #### LAB [address] [address] Moody Martinez M.D. [id number] Glucose Ql (U) >=500 Abnormal Negative [facility] Comment [...] By: #### 4 6625 #### LAB [address] [id number] Moody Martinez M.D. [id number] Hyaline casts LM Ql (Urine sed) 3-5 Abnormal 0-[address] [facility] Comment [...] By: #### 4 6625 #### LAB [address] [address] Moody Martinez M.D. [id number] Ketones Ql (U) Trace Abnormal Negative [facility] Comment [...] Performed By: #### 4 6625 #### LAB [address] [place] [address] Moody Martinez M.D. [id number] Leukocyte esterase Test strip Ql (U) Negative Normal Negative [facility] Comment [...] By: #### 4 6625 #### LAB [address] [address] Moody Martinez M.D. [id number] MUCUS, URINE Rare Normal None Seen, Rare [facility] Comment [...] By: #### 4 6625 #### LAB [address] [address] Moody Martinez M.D. [id number] NITRITE, URINE Negative Normal Negative [facility] Comment [...] By: #### 4 6625 #### LAB [address] [address] Moody Martinez M.D. [id number] pH (U) 5.5 [pH] Normal 5.0-7.[address] [facility] Comment [...] By: #### 4 6625 #### LAB [address] [address] Moody Martinez M.D. [id number] PROTEIN, URINE Negative Normal Negative [facility] Comment [...] By: #### 4 6625 #### LAB [address] [address] Moody Martinez M.D. [id number] RBC LM.HPF (Urine sed) [#/Area] 1 /[HPF] Normal 0-[address] [facility] Comment [...] By: #### 4 6625 #### LAB [address] [place], [place] [address] Moody Martinez M.D. [id number] Specific gravity (U) [Rel density] 1.012 Normal 1.005-1.[address] [facility] Comment [...] By: #### 4 6625 #### LAB [address] [address] Moody Martinez M.D. [id number] UROBILINOGEN, URINE <2.0 Normal <2.0 [facility] Comment on above: Order Comment: Micro scopic examination is performed on all urinalysis samples and only positive findings are reported. The test for blood on the chemical analytic portion of urinalysis may also be positive due to hemoglobinuria and myoglobinuria and if red blood cells are present they are quantified by microscopic examination. Performed By: #### 4 6625 #### LAB [address] [address] Moody Martinez M.D. [id number] WBC LM.HPF (Urine sed) [#/Area] 1 /[HPF] Normal 0-[address] [facility] Comment [...] By: #### 4 6625 #### LAB [address] [place], [place] [address] Moody Martinez M.D. [id number] URINE AEROBIC CULTUREon 02-01 URINE AEROBIC CULTURE URINE CULTURE < 10,000 CFU/mL of normal urogenital microbiota Normal [facility] Comment on above: Performed By: #### 4 4053 ####[facility] [address] [address] Jose Cisse M.D. [id number] XR CHEST PA/APon 02-28-2025 XR CHEST PA/AP [...] 28, 2025 4:00:36 AM EDT [facility] Comment [...] established Performed By: #### 6 517, 7909, 60054 #### [facility] [address], [address] [place] [address] Cad Drafter: Jadon Velez MD ALBUMIN/CREATININE RATIO, RANDOM URINE [...] category. Performed By: #### 6 517, 7909, 62450 #### [facility] [address] [address] Cad Drafter: Jadon Velez MD Creatinine (U) [Mass/Vol] 57 mg/dL Normal 20-320 [facility] Comment on above: Performed By: #### 6 517, 7909, 09350 #### [facility] [address] [address] Cad Drafter: Jadon Velez MD [facility] METABOLIC PANE [facility] 02-13-2025 Albumin [Mass/Vol] 4.3 g/dL Normal 3.6-5.1 [facility] Comment on above: Performed By: #### 8 66, 7600, 496, 95369, 74626 #### [facility] [address] [address] Cad Drafter: Jadon Velez MD Albumin/Globulin [Mass ratio] 1.7 {ratio} Normal 1.0-2.5 [facility] Comment on above: Performed By: #### 8 66, 7600, 496, 25287, 29226 #### [facility] [address] [address] Cad Drafter: Jadon Velez MD ALP [Catalytic activity/Vol] 61 U/L Normal 35-144 [facility] Comment on above: Performed By: #### 8 66, 7600, 496, 86396, 48994 #### [facility] [address] [address] Cad Drafter: Jadon Velez MD ALT [Catalytic activity/Vol] 12 U/L Normal 9-46 [facility] Comment on above: Performed By: #### 8 66, 7600, 496, 67554, 04664 #### [facility] of [address] [address] [address] Cad Drafter: Jadon Velez MD AST [Catalytic activity/Vol] 16 U/L Normal 10-35 [facility] Comment on above: Performed By: #### 8 66, 7600, 496, 20991, 20907 #### [facility] of [address] [address] Cad Drafter: Jadon Velez MD Bilirubin [Mass/Vol] 0.5 mg/dL Normal 0.2-1.2 [facility] Comment on above: Performed By: #### 8 66, 7600, 496, 70589, 19427 #### [facility] [address] [place] [address] Cad Drafter: Jadon Velez MD Calcium [Mass/Vol] 9.3 mg/dL Normal 8.6-10.3 [facility] Comment on above: Performed By: #### 8 66, 7600, 496, 63452, 03647 #### [facility] [address] [address] Cad Drafter: Jadon Velez MD Chloride [Moles/Vol] 102 mmol/L Normal 98-110 [facility] Comment on above: Performed By: #### 8 66, 7600, 496, 50511, 20003 #### [facility] [address] [place] [address] Cad Drafter: Jadon Velez MD CO2 [Moles/Vol] 28 mmol/L Normal 20-32 [facility] Comment on above: Performed By: #### 8 66, 7600, 496, 30030, 31530 #### [facility] of [address] [address] Cad Drafter: Jadon Velez MD Creatinine [Mass/Vol] 1.76 mg/dL High 0.70-1.[address] [facility] Comment on above: Performed By: #### 8 66, 7600, 496, 78240, 17301 #### [facility] [address] [address] Cad Drafter: Jadon Velez MD GFR/1.73 sq M.predicted among non-blacks MDRD (S/P/Bld) [Vol rate/Area] 38 mL/min/{1.73_m2} Low > OR = 60 [facility] Comment on above: Performed By: #### 8 66, 7600, 496, 50390, 25846 #### [facility] [address] [address] Cad Drafter: Jadon Velez MD Globulin (S) [Mass/Vol] 2.6 g/dL Normal 1.9-3.7 [facility] Comment on above: Performed By: #### 8 66, 7600, 496, 36862, 61620 #### [facility] [address] [place] [address] Cad Drafter: Jadon Velez MD Glucose [Mass/Vol] 242 mg/dL High 65-99 [facility] Comment on above: Result Comment: Fasting reference interval For someone without known diabetes, a glucose value >125 mg/dL indicates that they may have diabetes and this should be confirmed with a follow-up test. Performed By: #### 8 66, 7600, 496, 30006, 34423 #### [facility] [address] [place] [address] Cad Drafter: Jadon Velez MD Potassium [Moles/Vol] 4.6 mmol/L Normal 3.5-5.[address] [facility] Comment on above: Performed By: #### 8 66, 7600, 496, 65159, 84065 #### [facility] [address] [place] [address] Cad Drafter: Jadon Velez MD Protein [Mass/Vol] 6.9 g/dL Normal 6.1-8.1 [facility] Comment on above: Performed By: #### 8 66, 7600, 496, 82117, 27703 #### [facility] of [place] [address] Cad Drafter: Jadon Velez MD Sodium [Moles/Vol] 140 mmol/L Normal 135-146 [facility] Comment on above: Performed By: #### 8 66, 7600, 496, 71947, 69627 #### [facility] [place] [address] Cad Drafter: Jadon Velez MD Urea nitrogen [Mass/Vol] 38 mg/dL High 7-25 [facility] Comment on above: Performed By: #### 8 66, 7600, 496, 44179, 69385 #### [facility] [place] [address] Cad Drafter: Jadon Velez MD Urea nitrogen/Creatinine [Mass ratio] 22 mg/mg Normal 6-22 [facility] Comment on above: Performed By: #### 8 66, 7600, 496, 30489, 77543 #### [facility] [place] [address] Cad Drafter: Jadon Velez MD COMPREHENSIVE METABOLIC PANE L W/ANION GAPon 02-13-2025 Albumin [Mass/Vol] 4.3 g/dL Normal 3.6-5.1 [facility] Comment on above: Performed By: #### 9 2498 #### [facility] [place] [address] Cad Drafter: Jadon Velez MD ALP [Catalytic activity/Vol] 60 U/L Normal 35-144 [facility] Comment on above: Performed By: #### 9 3178 #### [facility] [place] [address] Cad Drafter: Jadon Velez MD ALT [Catalytic activity/Vol] 11 U/L Normal 9-46 [facility] Comment on above: Performed By: #### 9 0708 #### [facility] of [address] [place] [address] Cad Drafter: Jadon Velez MD AST [Catalytic activity/Vol] 15 U/L Normal 10-35 [facility] Comment on above: Performed By: #### 9 2498 #### [facility] [address] [address] Cad Drafter: Jadon Velez MD Bilirubin [Mass/Vol] 0.5 mg/dL Normal 0.2-1.2 [facility] Comment on above: Performed By: #### 9 2498 #### [facility] [address] [address] Cad Drafter: Jadon Velez MD Calcium [Mass/Vol] 9.3 mg/dL Normal 8.6-10.3 [facility] Comment on above: Performed By: #### 9 2498 #### [facility] [place] [address] Cad Drafter: Jadon Velez MD Chloride [Moles/Vol] 102 mmol/L Normal 98-110 [facility] Comment on above: Performed By: #### 9 2498 #### [facility] [address] [address] Cad Drafter: Jadon Velez MD CO2 [Moles/Vol] 28 mmol/L Normal 20-32 [facility] Comment on above: Performed By: #### 9 2498 #### [facility] [place] [address] Cad Drafter: Jadon Velez MD Creatinine [Mass/Vol] 1.80 mg/dL High 0.70-1.[address] [facility] Comment on above: Performed By: #### 9 2498 #### [facility] [place] [address] Cad Drafter: Jadon Velez MD ELECTROLYTE BALANCE 10 mmol/L (calc) Normal 7-17 [facility] Comment on above: Performed By: #### 9 2078 #### [facility] of [address] [place] [address] Cad Drafter: Jadon Velez MD GFR/1.73 sq M.predicted among non-blacks MDRD (S/P/Bld) [Vol rate/Area] 37 mL/min/{1.73_m2} Low > OR = 60 [facility] Comment on above: Performed By: #### 9 2498 #### [facility] [address], [address] [place] [address] Cad Drafter: Jadon Velez MD Glucose [Mass/Vol] 241 mg/dL High 65-99 [facility] Comment on above: Result Comment: Fasting reference interval For someone without known diabetes, a glucose value >125 mg/dL indicates that they may have diabetes and this should be confirmed with a follow-up test. Performed By: #### 9 2498 #### [facility] [place] [address] Cad Drafter: Jadon Velez MD Potassium [Moles/Vol] 4.7 mmol/L Normal 3.5-5.3 [facility] Comment on above: Performed By: #### 9 2498 #### [facility] [place] [address] Cad Drafter: Jadon Velez MD Protein [Mass/Vol] 6.7 g/dL Normal 6.1-8.1 [facility] Comment on above: Performed By: #### 9 2498 #### [facility] [address], [address] [place] [address] Cad Drafter: Jadon Velez MD Sodium [Moles/Vol] 140 mmol/L Normal 135-146 [facility] Comment on above: Performed By: #### 9 2498 #### [facility] [place] [address] Cad Drafter: Jadon Velez MD Urea nitrogen [Mass/Vol] 38 mg/dL High 7-25 [facility] Comment on above: Performed By: #### 9 2498 #### [facility] [address], [address] [place], [place] [address] Cad Drafter: Jadon Velez MD Comprehensive metabolic 2000 panelon 02-13-2025 Albumin [Mass/Vol] 4.3 g/dL 3.6 - 5.1 g/dL [facility] Albumin/Globulin [Mass ratio] 1.7 {ratio} [facility] ALP [Catalytic activity/Vol] 61 U/L 35 - 144 U/L [facility] ALT [Catalytic activity/Vol] 12 U/L 9 - 46 U/L [facility] AST [Catalytic activity/Vol] 16 U/L 10 - 35 U/L [facility] Bilirubin [Mass/Vol] 0.5 mg/dL 0.2 - 1 .2 mg/dL [facility] Calcium [Mass/Vol] 9.3 mg/dL 8.6 - 10. 3 mg/dL [facility] Chloride [Moles/Vol] 102 mmol/L 98 - 11 0 mmol/L [facility] CO2 [Moles/Vol] 28 mmol/L 20 - 32 mmol/L [facility] Creatinine [Mass/Vol] 1.76 mg/dL High 0.70 - 1.22 mg/dL [facility] GFR/1.73 sq M.predicted among non-blacks MDRD (S/P/Bld) [Vol rate/Area] 38 mL/min/{1.73_m2} Low > OR = 60 mL/min/1.73m2 [facility] Globulin (S) [Mass/Vol] 2.6 g/dL O [facility] Glucose [Mass/Vol] 242 mg/dL High 65 - 99 mg/dL [facility] Comment on above: Fasting reference interval For someone without known diabetes, a glucose value >125 mg/dL indicates that they may have diabetes and this should be confirmed with a follow-up test. Interpretation and review of laboratory results Abnormal [facility] Potassium [Moles/Vol] 4.6 mmol/L 3.5 - 5.3 mmol/L [facility] Protein [Mass/Vol] 6.9 g/dL 6.1 - 8.1 g/dL [facility] Sodium [Moles/Vol] 140 mmol/L 135 - 146 mmol/L [facility] Urea nitrogen [Mass/Vol] 38 mg/dL High 7 - 25 mg/d L [facility] Urea nitrogen/Creatinine [Mass ratio] 22 mg/mg [facility] HEMOGLOBIN A1con 02-13-2025 HbA1c (Bld) [Mass [...] for children. Performed By: #### 8 66, 7600, 496, 94892, 35923 #### [facility] [address], [address] [place] [address] Cad Drafter: Jadon Velez MD HbA1c (Bld) [Mass fraction]o n 02-13-2025 Interpretation and review of laboratory results Abnormal [facility] Hemoglobin A1con 02-13-2025 HbA1c (Bld) [Mass fraction] 7.4 % High NINF - 5.7 % [facility] Comment on above: For someone without [...] Performed By: #### 8 66, 7600, 496, 50004, 08003 #### [facility] [address], [address] [place] [address] Cad Drafter: Jadon Velez MD Cholesterol in HDL [Mass/Vol] 57 mg/dL Normal > OR = 40 [facility] Comment on above: Performed By: #### 8 66, 7600, 496, 78873, 58346 #### [facility] [place] [address] [place] [address] Cad Drafter: Jadon Velez MD Cholesterol in LDL [Mass/Vol] [...] Ramon SORIA et al. ANA LAURA. 2013;310(19): 0105-0704 (http://education.[employer]/faq/YKB729) Performed By: #### 8 66, 7600, 496, 51435, 10883 #### [facility] [place] [address] Cad Drafter: Jadon Velez MD Cholesterol.total/Cholest santos in HDL [Mass ratio] 2.6 {ratio} Normal <5.0 [facility] Comment on above: Performed By: #### 8 66, 7600, 496, 77015, 37555 #### [facility] [place] [address] Cad Drafter: Jadon Velez MD NON HDL CHOLESTEROL 91 mg/dL (calc) Normal <130 [facility] Comment on above: Result Comment: For patients with diabetes plus 1 major ASCVD risk factor, treating to a non-HDL-C goal of <100 mg/dL (LDL-C of <70 mg/dL) is considered a therapeutic option. Performed By: #### 8 66, 7600, 496, 96056, 81700 #### [facility] [address], [address] [place] [address] Cad Drafter: Jadon Velez MD Triglyceride [Mass/Vol] 85 mg/dL Normal <150 [facility] Comment on above: Performed By: #### 8 66, 7600, 496, 70186, 91354 #### [facility] [address], [address] [place] [address] Cad Drafter: Jadon Velez MD Lipid 1996 panelon Cholesterol [Mass/Vol] 148 mg/dL [facility] - 200 mg/dL [facility] Cholesterol in HDL [Mass/Vol] 57 mg/dL > OR = 40 [facility] Cholesterol in LDL [Mass/Vol] 74 mg/dL mg/dL (calc) [facility] Comment on above: Reference range: <10 [...] Ramon SS et al. ANA LAURA. 2013;310(19): 0527-3860 (http://education.[employer].com/faq/FKE725) Cholesterol non HDL [Mass/Vol] 91 mg/dL [facility] Comment on above: For patients with di abetes plus 1 major ASCVD risk factor, treating to a non-HDL-C goal of <100 mg/dL (LDL-C of <70 mg/dL) is considered a therapeutic option. Cholesterol.total/Cholest santos in HDL [Mass ratio] 2.6 {ratio} [facility] Triglyceride [Mass/Vol] 85 mg/dL [facility] - 150 mg/dL [facility] NOTEon 02-13-2025 NOTE Normal [facility] Comment on above: Result Comment: This urine was analyzed for the presence of WBC, RBC, bacteria, casts, and other formed elements. Only those elements seen were reported. Performed By: #### 9 2498 #### [facility] [address], [address] [place], [place] [id number] Cad Drafter: Jadon Velez MD No Panel Informationon 02-13 [facility] T4, FREEon 02-13-2025 Free T4 [Mass/Vol] 1.4 ng/dL Normal 0.8-1.8 [facility] Comment on above: Performed By: #### 8 66, 8830, 496, 76439, 67202 #### [facility] [address], [address] [place], [place] [address] Cad Drafter: Jadon Velez MD TSH W/REFLEX TO FT4on 2024 TSH W/REFLEX TO FT4 0.36 mIU/L Low 0.40-4.50 [facility] Comment on above: Performed By: #### 8 66, 7600, 496, 77440, 29359 #### [facility] of [address], [address] [place] [address] Cad Drafter: Jadon Velez MD URINALYSIS REFLEXon 02-14-20 25 Appearance (U) CLEAR Normal CLEAR [facility] Comment on above: Performed By: #### 9 2498 #### [facility] of [place] [address] Cad Drafter: Jadon Velez MD BACTERIA NONE SEEN Normal NONE SEEN [facility] Comment on above: Performed By: #### 9 2498 #### [facility] [place] [address] Cad Drafter: Jadon Velez MD Bilirubin Ql (U) Negative Normal NEGATIVE [facility] Comment on above: Performed By: #### 9 2498 #### [facility] of [place] [address] Cad Drafter: Jadon Velez MD Color (U) YELLOW Normal YELLOW [facility] Comment on above: Performed By: #### 9 2498 #### [facility] of [place] [address] Cad Drafter: Jadon Velez MD Glucose Ql (U) Negative Normal NEGATIVE [facility] Comment on above: Performed By: #### 9 2498 #### [facility] of [place] [address] Cad Drafter: Jadon Velez MD HYALINE CAST NONE SEEN Normal NONE SEEN [facility] Comment on above: Performed By: #### 9 2498 #### [facility] of [place] [address], [address] [place] [address] Cad Drafter: Jadon Velez MD Ketones Ql (U) Negative Normal NEGATIVE [facility] Comment on above: Performed By: #### 9 0548 #### [facility] of [address], [address] [place] [address] Cad Drafter: Jadon Velez MD Leukocyte esterase Test strip Ql (U) TRACE Abnormal NEGATIVE [facility] Comment on above: Performed By: #### 9 2098 #### [facility] of [place] [address] Cad Drafter: Jadon Velez MD Nitrite Ql (U) Negative Normal NEGATIVE [facility] Comment on above: Performed By: #### 9 9528 #### [facility] of [place] [address] Cad Drafter: Jadon Velez MD OCCULT BLOOD Negative Normal NEGATIVE [facility] Comment on above: Performed By: #### 9 2498 #### [facility] of [place] [address] Cad Drafter: Jadon Velez MD pH (U) 6.0 [pH] Normal 5.0-8.0 [facility] Comment on above: Performed By: #### 9 8588 #### [facility] of [place] [address] Cad Drafter: Jadon Velez MD Protein Ql (U) 1+ Abnormal NEGATIVE [facility] Comment on above: Performed By: #### 9 3488 #### [facility] of [place] [address] Cad Drafter: Jadon Velez MD RBC NONE SEEN Normal < OR = 2 [facility] Comment on above: Performed By: #### 9 5318 #### [facility] of [place] [address] Cad Drafter: Jadon Velez MD Specific gravity (U) [Rel density] 1.011 Normal 1.001-1.035 [facility] Comment on above: Performed By: #### 9 3558 #### [facility] of [place] [address] Cad Drafter: Jadon Velez MD SQUAMOUS EPITHELIAL CELLS NONE SEEN Normal < OR = 5 [facility] Comment on above: Performed By: #### 9 2498 #### [facility] [address] , [address] Cad Drafter: Jadon Velez MD WBC 0-5 Normal < OR = 5 [facility] Comment on above: Performed By: #### 9 2498 #### [facility] [address] [place], [place] [address] , [address] [place] [address] Cad Drafter: Jadon Velez MD Anion gap in Serum or Plasma Ordered By: Kerwin Tamayo on 02-06-2025 Anion gap [Moles/Vol] 12 mmol/L 5-15 [facility] BUN/creatinine ratioOrdered By: Kerwin Tamayo on 02-06-2025 Urea nitrogen/Creatinine [Mass ratio] 23.1 mg/mg High 10- [facility] Basic Metabolic Profile (BMP )on 02-06-2025 BUN/CRE 23.1 RATIO High 10-20 [facility] Comment on above: Performed By: #### L 500.2500, L100.0500 ####[facility] [address] [place], [address] Calcium [Mass/Vol] 9.1 mg/dL Normal 7.6-11.0 [facility] Comment on above: Performed By: #### L 500.2500, L100.0500 ####[facility] [address] [place], [address] Chloride [Moles/Vol] 103 mmol/L Normal 98-108 [facility] Comment on above: Performed By: #### L 500.2500, L100.0500 ####[facility] [address] [place], [address] CO2 [Moles/Vol] 23.7 mmol/L Normal 21.0-32.0 [facility] Comment on above: Performed By: #### L 500.2500, L100.0500 ####[facility] [address] [place], [address] Creatinine [Mass/Vol] 1.88 mg/dL High 0.70-1.20 [facility] Comment on above: Performed By: #### L 500.2500, L100.0500 ####[facility] [address] [place], [address] GAP 12 Normal 5-15 [facility] Comment on above: Performed By: #### L 500.2500, L100.0500 ####[facility] [address] [place], [address] GFR/1.73 sq M.predicted among non-blacks MDRD (S/P/Bld) [Vol rate/Area] 35 mL/min/{1.73_m2} Low >60 [facility] Comment on above: Result Comment: mL/m in/1.73m2 CKD-EPI Creatinine Equation (2020) Performed By: #### L 500.2500, L100.0500 ####[facility] [address] [place], [address] Glucose [Mass/Vol] 287 mg/dL High 70-99 [facility] Comment on above: Performed By: #### L 500.2500, L100.0500 ####[facility] [address] [place], [address] Potassium [Moles/Vol] 4.4 mmol/L Normal 3.3-5.1 [facility] Comment on above: Performed By: #### L 500.2500, L100.0500 ####[facility] [address] [place], [address] Sodium [Moles/Vol] 139 mmol/L Normal 133-145 [facility] Comment on above: Performed By: #### L 500.2500, L100.0500 ####[facility] [address] [place], [address] Urea nitrogen [Mass/Vol] 44 mg/dL High 4-19 [facility] Comment on above: Performed By: #### L 500.2500, L100.0500 ####[facility] [address] [place], [address] CBC-Complete Blood Cnt No Di ffon 02-06-2025 Erythrocyte distribution width (RBC) [Ratio] 13.0 % Normal 11.6-14.6 [facility] Comment on above: Performed By: #### L 500.2500, L100.0500 ####[facility] [address] [place], [address] Hematocrit (Bld) [Volume fraction] 33.8 % Low 40-54 [facility] Comment on above: Performed By: #### L 500.2500, L100.0500 ####[facility] [address] [place], [address] Hemoglobin (Bld) [Mass/Vol] 11.0 g/dL Low 13.0-16.5 [facility] Comment on above: Performed By: #### L 500.2500, L100.0500 ####[facility] [address] [place], [address] MCH (RBC) [Entitic mass] 31.0 pg Normal 27.0-32.0 [facility] Comment on above: Performed By: #### L 500.2500, L100.0500 ####[facility] [address] [place], [address] MCHC (RBC) [Mass/Vol] 32.5 g/dL Normal 32-36 [facility] Comment on above: Performed By: #### L 500.2500, L100.0500 ####[facility] [address] [place], [address] MCV (RBC) [Entitic vol] 95.2 fL High 80-94 [facility] Comment on above: Performed By: #### L 500.2500, L100.0500 ####[facility] [address] [place], [address] Platelet mean volume (Bld) [Entitic vol] 11.2 fL Normal 6.2-12.0 [facility] Comment on above: Performed By: #### L 500.2500, L100.0500 ####[facility] [address] [place], [address] Platelets (Bld) [#/Vol] 239 10*3/uL Normal 150-450 [facility] Comment on above: Performed By: #### L 500.2500, L100.0500 ####[facility] [address] [place], [address] RBC (Bld) [#/Vol] 3.55 10*6/uL Low 4.6-6.2 [facility] Comment on above: Performed By: #### L 500.2500, L100.0500 ####[facility] [address] [place], [address] RDW SD 45.3 fl High 35.1-43.9 [facility] Comment on above: Performed By: #### L 500.2500, L100.0500 ####[facility] [address] [place], [address] WBC (Bld) [#/Vol] 8.9 10*3/uL Normal 4.4-11.0 [facility] Comment on above: Performed By: #### L 500.2500, L100.0500 ####[facility] [address] [place], [address] Carbon dioxide, total [Moles /volume] in Central venous bloodOrdered By: Kerwin Tamayo on 02-06-2025 CO2 [Moles/Vol] 23.7 mmol/L 21.0-32.0 [facility] Chloride assayOrdered By: Daniela Tamayo on 02-06-2025 Chloride [Moles/Vol] 103 mmol/L 98-108 [facility] Erythrocyte distribution wid th (RBC) [Ratio]Ordered By: Kerwin Tamayo on 02-06-2025 Erythrocyte distribution width (RBC) [Entitic vol] 45.3 fL High 35.1-43.9 [facility] Erythrocyte distribution wid th ratioOrdered By: Kerwin Tamayo on 02-06-2025 Erythrocyte distribution width (RBC) [Ratio] 13.0 % 11.6-14.6 [facility] Erythrocyte distribution wid th standard deviationOrdered By: Kerwin Tamayo on 02-06-2025 Erythrocyte distribution width (RBC) [Ratio] 45.3 fl High 35.1-43.9 [facility] GFR/1.73 sq M.predicted park g non-blacks MDRD (S/P/Bld) [Vol rate/Area]Ordered By: Kerwin Tamayo on 02-06-2025 Estimated GFR (MDRD) Non-Af Amer 35 Low >60 [facility] Comment on above: mL/min/1.73m2 CKD-EP I Creatinine Equation (2020) Glomerular filtration rate ( GFR) estimation/1.73 sq m using serum, plasma, or whole bOrdered By: Kerwin Tamayo on 02-06-2025 GFR/1.73 sq M.predicted among non-blacks MDRD (S/P/Bld) [Vol rate/Area] 35 mL/min/{1.73_m2} Low >60 [facility] Comment on above: mL/min/1.73m2 CKD-EP I Creatinine Equation (2020) Hematocrit Auto (Bld) [Volum e fraction]Ordered By: Kerwin Tamayo on 02-06-2025 Hematocrit (Bld) [Volume fraction] 33.8 % Low 40-54 [facility] Hemoglobin measurementOrdere d By: Kerwin Tamayo on 02-06-2025 Hemoglobin (Bld) [Mass/Vol] 11.0 g/dL Low 13.0-16.5 [facility] MCV (mean corpuscular volume ) determinationOrdered By: Kerwin Tamayo on 02-06-2025 MCV (RBC) [Entitic vol] 95.2 fL High 80-94 [facility] Mean corpuscular hemoglobin (MCH) determinationOrdered By: Kerwin Tamayo on 02-06-2025 MCH (RBC) [Entitic mass] 31.0 pg 27.0-32.0 [facility] Mean corpuscular hemoglobin concentration (MCHC) determinationOrdered By: Kerwin Tamayo on 02-06-2025 MCHC (RBC) [Mass/Vol] 32.5 g/dL 32-36 [facility] Mean platelet volume determi nationOrdered By: Kerwin Tamayo on 02-06-2025 Platelet mean volume (Bld) [Entitic vol] 11.2 fL 6.2-12.0 [facility] Platelet countOrdered By: Daniela Tamayo on 02-06-2025 Platelets (Bld) [#/Vol] 239 10*3/uL 150-450 [facility] Potassium (Unsp spec) [Mass/ Vol]Ordered By: Kerwin Tamayo on 02-06-2025 Potassium [Moles/Vol] 4.4 mmol/L 3.3-5.1 [facility] Potassium measurement (mass/ volume)Ordered By: Kerwin Tamayo on 02-06-2025 Potassium (Unsp spec) [Mass/Vol] 4.4 mmol/L 3.3-5.1 [facility] RBC Auto (Bld) [#/Vol]Ordere d By: Kerwin Tamayo on 02-06-2025 RBC (Bld) [#/Vol] 3.55 10*6/uL Low 4.6-6.2 [facility] Serum creatinine measurement (mass/volume)Ordered By: Kerwin Tamayo on 02-06-2025 Creatinine [Mass/Vol] 1.88 mg/dL High 0.70-1.20 [facility] Serum glucose measurement (m ass/volume)Ordered By: Kerwin Tamayo on 02-06-2025 Glucose [Mass/Vol] 287 mg/dL High 70-99 [facility] Serum or plasma calcium nikkie urement (mass/volume)Ordered By: Kerwin Tamayo on 02-06-2025 Calcium [Mass/Vol] 9.1 mg/dL 7.6-11.0 [facility] Serum or plasma urea nitroge n measurement (mass/volume)Ordered By: Kerwin Tamayo on 02-06-2025 Urea nitrogen [Mass/Vol] 44 mg/dL High 4-19 [facility] Sodium levelOrdered By: Aaron Tamayo on 02-06-2025 Sodium [Moles/Vol] 139 mmol/L 133-145 [facility] White blood cell (WBC) count Ordered By: Kerwin Tamayo on 02-06-2025 WBC (Bld) [#/Vol] 8.9 10*3/uL 4.4-11.0 [facility] CBC W Auto Differential pane l (Bld)on 11-06-2024 Basophils (Bld) [#/Vol] 0.08 x10*3/uL Normal 0.00-0.10 [facility] Comment on above: Performed By: #### 5 7021-8 #### MAGGI PARNELL ([id number]) [facility] ([facility]) [address] [place] [address] Basophils/100 WBC (Bld) 0.8 % Normal 0.0-2.0 [facility] Comment on above: Performed By: #### 5 7021-8 #### MAGGI PARNELL ([id number]) [facility] ([facility]) [address] [place] [address] Eosinophils (Bld) [#/Vol] 0.42 x10*3/uL High 0.00-0. 40 [facility] Comment on above: Performed By: #### 5 7021-8 #### MAGGI PARNELL ([id number]) [facility] ([facility]) [address] [place] [address] Eosinophils/100 WBC (Bld) 4.4 % Normal 0.0-6.0 [facility] Comment on above: Performed By: #### 5 7021-8 #### MAGGI PARNELL ([id number]) [facility] ([facility]) [address] [place] [address] Erythrocyte distribution width (RBC) [Ratio] 14.5 % Normal 11.5-14.5 [facility] Comment on above: Performed By: #### 5 7021-8 #### MAGGI PARNELL ([id number]) [facility] ([facility]) [address] [place] [address] Hematocrit (Bld) [Volume fraction] 34.5 % Low 41.0-52.0 [facility] Comment on above: Performed By: #### 5 7021-8 #### MAGGI PARNELL ([id number]) [facility] ([facility]) [address] [place] [address] Hemoglobin (Bld) [Mass/Vol] 10.6 g/dL Low 13.5-17.5 [facility] Comment on above: Performed By: #### 5 7021-8 #### MAGGI PARNELL ([id number]) [facility] ([facility]) [address] [place] [address] Immature granulocytes (Bld) [#/Vol] 0.03 x10*3/uL Normal 0.00-0.50 [facility] Comment on above: Performed By: #### 5 7021-8 #### MAGGI PARNELL ([id number]) [facility] ([facility]) [address] [place] [address] Immature granulocytes/100 WBC (Bld) 0.3 % Normal 0.0-0.9 [facility] Comment on above: Result Comment: Arielle ture Granulocyte Count (IG) includes promyelocytes, myelocytes and metamyelocytes but does not include bands. Percent differential counts (%) should be interpreted in the context of the absolute cell counts (cells/UL). Performed By: #### 5 7021-8 #### MAGGI PARNELL ([id number]) [facility] ([facility]) [address] [place], [place] [address] Lymphocytes (Bld) [#/Vol] 2.35 x10*3/uL Normal 0.80-3. 00 [facility] Comment on above: Performed By: #### 5 7021-8 #### MAGGI PARNELL ([id number]) [facility] ([facility]) [facility] [place] [address] Lymphocytes/100 WBC (Bld) 24.5 % Normal 13.0-44.0 [facility] Comment on above: Performed By: #### 5 7021-8 #### MAGGI PARNELL ([id number]) [facility] ([facility]) [address] [place] [address] MCH (RBC) [Entitic mass] 30.3 pg Normal 26.0-34.0 [facility] Comment on above: Performed By: #### 5 7021-8 #### MAGGI PARNELL ([id number]) [facility] ([facility]) [address] [place] [address] MCHC (RBC) [Mass/Vol] 30.7 g/dL Low 32.0-36.0 [facility] Comment on above: Performed By: #### 5 7021-8 #### MAGGI PARNELL ([id number]) [facility] ([facility]) [address] [place] [address] MCV (RBC) [Entitic vol] 99 fL Normal 80-100 [facility] Comment on above: Performed By: #### 5 7021-8 #### MAGGI PARNELL ([id number]) [facility] ([facility]) [address] [place] [address] Monocytes (Bld) [#/Vol] 0.82 x10*3/uL High 0.05-0.80 [facility] Comment on above: Performed By: #### 5 7021-8 #### MAGGI PARNELL ([id number]) [facility] ([facility]) [address] [place] [address]90 Monocytes/100 WBC (Bld) 8.6 % Normal 2.0-10.0 [facility] Comment on above: Performed By: #### 5 7021-8 #### MAGGI PARNELL ([id number]) [facility] ([facility]) [address] [place] [address] 83345 Neutrophils (Bld) [#/Vol] 5.89 x10*3/uL High 1.60-5. 50 [facility] Comment on above: Result Comment: Perc ent differential counts (%) should be interpreted in the context of the absolute cell counts (cells/uL). Performed By: #### 5 7021-8 #### MAGGI PARNELL ([id number]) [facility] ([facility]) [address] [place] [address] Neutrophils/100 WBC (Bld) 61.4 % Normal 40.0-80.0 [facility] Comment on above: Performed By: #### 5 7021-8 #### MAGGI PARNELL ([id number]) [facility] ([facility]) [address] [place] [address] 88550 Nucleated RBC/100 WBC (Bld) [Ratio] 0.0 /100 WBCs Normal 0.0-0.0 [facility] Comment on above: Performed By: #### 5 7021-8 #### MAGGI PARNELL ([id number]) [facility] ([facility]) [address] [place] [address] 93034 Platelets (Bld) [#/Vol] 229 x10*3/uL Normal 150-450 [facility] Comment on above: Performed By: #### 5 7021-8 #### MAGGI PARNELL ([id number]) [facility] ([facility]) [address] [place] [address] 11042 RBC (Bld) [#/Vol] 3.50 x10*6/uL Low 4.50-5.90 [facility] Comment on above: Performed By: #### 5 7021-8 #### MAGGI PARNELL ([id number]) [facility] ([facility]) [address] [place] [address]97 WBC (Bld) [#/Vol] 9.6 x10*3/uL Normal 4.4-11.3 [facility] Comment on above: Performed By: #### 5 7021-8 #### MAGGI PARNELL ([id number]) [facility] ([facility]) [address] [place] [address] Comprehensive metabolic 2000 panelon 11-06-2024 Albumin BCP dye [Mass/Vol] 3.7 g/dL Normal 3.4-5.0 [facility] Comment on above: Performed By: #### 1 4959-1 #### ALENA Paredes ([id number]) [facility] ([facility]) [address] [place] [address] ALP [Catalytic activity/Vol] 68 U/L Normal 33-136 [facility] Comment on above: Performed By: #### 1 4959-1 #### ALENA Paredes ([id number]) [facility] ([facility]) [id number] [place] [address]646 ALT With P-5'-P [Catalytic activity/Vol] 19 U/L Normal 10-52 [facility] Comment on above: Result Comment: Twila ents treated with Sulfasalazine may generate falsely decreased results for ALT. Performed By: #### 1 4959-1 #### ALENA Paredes ([id number]) [facility] ([facility]) [id number] [place] [address]5639 Anion gap [Moles/Vol] 12 mmol/L Normal 10-20 [facility] Comment on above: Performed By: #### 1 4959-1 #### ALENA Paredes ([id number]) [facility] ([facility]) [id number] [place] [address] 79134 AST With P-5'-P [Catalytic activity/Vol] 19 U/L Normal 9-39 [facility] Comment on above: Performed By: #### 1 4959-1 #### ALENA Paredes ([id number]) [facility] ([facility]) [address] [place] [address] Bilirubin [Mass/Vol] 0.3 mg/dL Normal 0.0-1.2 [facility] Comment on above: Performed By: #### 1 4959-1 #### ALENA Paredes ([id number]) [facility] ([facility]) [address] [place] [address] Calcium [Mass/Vol] 8.9 mg/dL Normal 8.6-10.3 [facility] Comment on above: Performed By: #### 1 4959-1 #### ALENA Paredes ([id number]) [facility] ([facility]) [id number] [place] [address]21 Chloride [Moles/Vol] 108 mmol/L High 98-107 [facility] Comment on above: Performed By: #### 1 4959-1 #### ALENA Paredes ([id number]) [facility] ([facility]) [address] [place] [address] 04787 CO2 [Moles/Vol] 23 mmol/L Normal 21-32 [facility] Comment on above: Performed By: #### 1 4959-1 #### ALENA Paredes ([id number]) [facility] ([facility]) [id number] [place] [address] 14237 Creatinine [Mass/Vol] 2.37 mg/dL High 0.50-1.30 [facility] Comment on above: Performed By: #### 1 4959-1 #### ALENA Paredes ([id number]) [facility] ([facility]) [id number] [place] [address] 58748 Glomerular filtration rate/1.73 sq M.predicted 27 mL/min/1.73m*2 Low >60 [facility] Comment on above: Result Comment: Calc ulations of estimated GFR are performed using the 2020 CKD-EPI Study Refit equation without the race variable for the IDMS-Traceable creatinine methods. https://jasn.asnjournals.org/content/early//ASN.20 40022873 Performed By: #### 1 4959-1 #### ALENA Paredes ([id number]) [facility] ([facility]) [id number] [place] [address] 19006 Glucose [Mass/Vol] 95 mg/dL Normal 74-99 [facility] Comment on above: Performed By: #### 1 4959-1 #### ALENA Paredes ([id number]) [facility] ([facility]) [address] [place] [address] Potassium [Moles/Vol] 4.9 mmol/L Normal 3.5-5.3 [facility] Comment on above: Performed By: #### 1 4959-1 #### ALENA Paredes ([id number]) [facility] ([facility]) [id number] [place] [address] 57674 Protein [Mass/Vol] 6.4 g/dL Normal 6.4-8.2 [facility] Comment on above: Performed By: #### 1 4959-1 #### ALENA Paredes ([id number]) [facility] ([facility]) [id number] [place] [address] 01388 Sodium [Moles/Vol] 138 mmol/L Normal 136-145 [facility] Comment on above: Performed By: #### 1 4959-1 #### ALENA Paredes ([id number]) [facility] ([facility]) [address] [place] [address] 32428 Urea nitrogen [Mass/Vol] 48 mg/dL High 6-23 [facility] Comment on above: Performed By: #### 1 4959-1 #### ALENA Paredes ([id number]) [facility] ([facility]) [address] [place] [address] 37979 HbA1c (Bld) [Mass fraction]o n 11-06-2024 Average glucose Estimated from glycated hemoglobin (Bld) [Mass/Vol] 220 mg/dL Normal Not Established [facility] Comment on above: Order Comment: Diagn osis of Buhntvqp-VpxersQra-Fnsohxxk: < or = 5.6%Increased risk for developing diabetes: 5.7-6.4%Diagnostic of diabetes: > or = 6.5% Performed By: #### 1 4959-1 #### ALENA Paredes ([id number]) [facility] ([facility]) [address] [place] [address] 87603 Hemoglobin A1c/Hemoglobin.to alcira 11-06-2024 HbA1c (Bld) [Mass fraction] 9.3 % High See comment [facility] Comment on above: Order Comment: Diagn osis of Jcakvpbp-PsfrwpGem-Fopncxli: < or = 5.6%Increased risk for developing diabetes: 5.7-6.4%Diagnostic of diabetes: > or = 6.5% Performed By: #### 1 4959-1 #### ALENA Paredes ([id number]) [facility] ([facility]) [address] [place], [place] [id number] Thyrotropinon 11-06-2024 TSH Qn 2.65 m[IU]/L Normal 0.44-3.98 [facility] Comment on above: Order Comment: TSH t esting is performed using different testing methodology at [facility] than at [facility]. Direct result comparisons should only be made within the same method. Performed By: #### 1 4959-1 #### ALENA Paredes ([id number]) [facility] ([facility]) [address] [place] [address] 27063 Thyroxine.freeon 11-06-2024 Free T4 [Mass/Vol] 0.84 ng/dL Normal 0.61-1.12 [facility] Comment on above: Order Comment: Thyro xine Free testing is performed using different testing methodology at [facility] than at [facility]. 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 Performed By: #### 4 6124 #### LAB [address] [place] [id number] Moody Martinez M.D. 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 [id number] Urea nitrogen [Mass/Vol] 82 mg/dL High 8-[address] 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 [id number] Urea nitrogen/Creatinine [Mass ratio] 35.5 mg/mg High 10.0-20.[address] 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 [id number] Anion gap [Moles/Vol] 17 mmol/L Normal 10-20 [facility] Comment on above: Order Comment: [facility] has implemented the eGFR calculation approach that does not have a coefficient for race that conforms to the NKF-ASN Task Force Recommendations. Performed By: #### 4 6124 #### LAB [address] [place], [place] [address] Moody Martinez M.D. [id number] Calcium [Mass/Vol] 8.5 mg/dL Normal 8.4-10.2 [facility] Comment on above: Order Comment: [facility] has implemented the eGFR calculation approach that does not have a coefficient for race that conforms to the NKF-ASN Task Force Recommendations. Performed By: #### 4 6124 #### LAB [address] [place] [address] Moody Martinez M.D. [id number] Chloride [Moles/Vol] 108 mmol/L Normal 98-108 [facility] Comment on above: Order Comment: [facility] has implemented the eGFR calculation approach that does not have a coefficient for race that conforms to the NKF-ASN Task Force Recommendations. Performed By: #### 4 6124 #### LAB [address] [place] [address] Moody Martinez M.D. [id number] Creatinine [Mass/Vol] 2.44 mg/dL High 0.80-1.30 [facility] Comment on above: Order Comment: [facility] has implemented the eGFR calculation approach that does not have a coefficient for race that conforms to the NKF-ASN Task Force Recommendations. Performed By: #### 4 6124 #### LAB [address] [place] [address] Moody Martinez M.D. [id number] EGFR 26 mL/min/1.73 m2 Low >=60 [facility] Comment on above: Order Comment: [facility] has implemented the eGFR calculation approach that does not have a coefficient for race that conforms to the NKF-ASN Task Force Recommendations. Result Comment: Albin mated GFR was calculated using the 2020 CKD-EPI creatinine equation. Performed By: #### 4 6124 #### LAB [address] [place] [address] Moody Martinez M.D. [id number] Glucose [Mass/Vol] 107 mg/dL High 65-99 [facility] Comment on above: Order Comment: [facility] has implemented the eGFR calculation approach that does not have a coefficient for race that conforms to the NKF-ASN Task Force Recommendations. Performed By: #### 4 6124 ####[facility] [address] [place] [address] Moody Martinez M.D. [id number] HCO3 (Bld) [Moles/Vol] 18 mmol/L Low 21-32 [facility] Comment on above: Order Comment: [facility] has implemented the eGFR calculation approach that does not have a coefficient for race that conforms to the NKF-ASN Task Force Recommendations. Performed By: #### 4 6124 #### LAB [address] [place] [address] Moody Martinez M.D. [id number] Potassium [Moles/Vol] 4.1 mmol/L Normal 3.5-5.1 [facility] Comment on above: Order Comment: [facility] has implemented the eGFR calculation approach that does not have a coefficient for race that conforms to the NKF-ASN Task Force Recommendations. Performed By: #### 4 6124 #### LAB [address] [place] [address] Moody Martinez M.D. [id number] Sodium [Moles/Vol] 139 mmol/L Normal 135-145 [facility] Comment on above: Order Comment: [facility] has implemented the eGFR calculation approach that does not have a coefficient for race that conforms to the NKF-ASN Task Force Recommendations. Performed By: #### 4 6124 #### LAB [address] [place] [address] Moody Martinez M.D. [id number] Urea nitrogen [Mass/Vol] 85 mg/dL High 8-[address] [facility] Comment on above: Order Comment: [facility] has implemented the eGFR calculation approach that does not have a coefficient for race that conforms to the NKF-ASN Task Force Recommendations. Performed By: #### 4 6124 #### LAB [address] [place] [address] Moody Martinez M.D. [id number] Urea nitrogen/Creatinine [Mass ratio] 34.8 mg/mg High 10.0-20.[address] [facility] Comment on above: Order Comment: [facility] has implemented the eGFR calculation approach that does not have a coefficient for race that conforms to the NKF-ASN Task Force Recommendations. Performed By: #### 4 6124 #### LAB [address] [place] [address] Moody Martinez M.D. [id number] BETA-HYDROXYBUTYRATEon 10-28 BETA-HYDROXYBUTYRATE 0.1 mmol/L Normal 0.0-0.3 [facility] Comment on above: Performed By: #### 4 5139 ####[facility] [address] [place], [place] [address] Moody Martinez M.D. [id number] BETA-HYDROXYBUTYRATE < Normal 0.0-0.3 [facility] Comment on above: Performed By: #### 4 5139 ####[facility] [address] [place], [place] [address] Moody Martinez M.D. [id number] Basic metabolic 2000 panelon 10-28-2024 Anion gap [Moles/Vol] 16 mmol/L 10 - 2 0 mmol/L [facility] Calcium [Mass/Vol] 8.5 mg/dL 8.4 - 10. 2 mg/dL [facility] Chloride [Moles/Vol] 108 mmol/L 98 - 10 8 mmol/L [facility] Creatinine [Mass/Vol] 2.31 mg/dL High 0.80 - 1.30 mg/dL [facility] GFR/1.73 sq M.predicted CKD-EPI (S/P/Bld) [Vol rate/Area] 28 Low - PINF [facility] Comment on above: Estimated GFR was ca lculated using the 2020 CKD-EPI creatinine equation. Glucose [Mass/Vol] 95 mg/dL 65 - 99 mg/dL [facility] HCO3 [Moles/Vol] 19 mmol/L Low 21 - 32 mmol/L [facility] Potassium [Moles/Vol] 4.1 mmol/L 3.5 - 5.1 mmol/L [facility] Sodium [Moles/Vol] 139 mmol/L 135 - 145 mmol/L [facility] Urea nitrogen [Mass/Vol] 82 mg/dL High 8 - 25 mg/d L [facility] Urea nitrogen/Creatinine [Mass ratio] 35.5 mg/mg High 10.0 - 20.0 [facility] has implemented the eGFR calculation approach that does not have a coefficient for race that conforms to the NKF-ASN Task Force Recommendations. [facility] Anion gap [Moles/Vol] 17 mmol/L 10 - 2 0 mmol/L [facility] Calcium [Mass/Vol] 8.5 mg/dL 8.4 - 10. 2 mg/dL [facility] Chloride [Moles/Vol] 108 mmol/L 98 - 10 8 mmol/L [facility] Creatinine [Mass/Vol] 2.44 mg/dL High 0.80 - 1.30 mg/dL [facility] GFR/1.73 sq M.predicted CKD-EPI (S/P/Bld) [Vol rate/Area] 26 Low - PINF [facility] Comment on above: Estimated GFR was ca lculated using the 2020 CKD-EPI creatinine equation. Glucose [Mass/Vol] 107 mg/dL High 65 - 99 mg/dL [facility] HCO3 [Moles/Vol] 18 mmol/L Low 21 - 32 mmol/L [facility] Potassium [Moles/Vol] 4.1 mmol/L 3.5 - 5.1 mmol/L [facility] Sodium [Moles/Vol] 139 mmol/L 135 - 145 mmol/L [facility] Urea nitrogen [Mass/Vol] 85 mg/dL High 8 - 25 mg/d L [facility] Urea nitrogen/Creatinine [Mass ratio] 34.8 mg/mg High 10.0 - 20.0 [facility] has implemented the eGFR calculation approach that does not have a coefficient for race that conforms to the NKF-ASN Task Force Recommendations. [facility] Anion gap [Moles/Vol] 16 mmol/L 10 - 2 0 mmol/L [facility] Calcium [Mass/Vol] 8.3 mg/dL Low 8.4 - 10. 2 mg/dL [facility] Chloride [Moles/Vol] 103 mmol/L 98 - 10 8 mmol/L [facility] Creatinine [Mass/Vol] 2.6 mg/dL High 0.80 - 1.30 mg/dL [facility] GFR/1.73 sq M.predicted CKD-EPI (S/P/Bld) [Vol rate/Area] 24 Low - PINF [facility] Comment on above: Estimated GFR was ca lculated using the 2020 CKD-EPI creatinine equation. Glucose [Mass/Vol] 495 mg/dL Critically high 65 - 99 mg/d L [facility] HCO3 [Moles/Vol] 18 mmol/L Low 21 - 32 mmol/L [facility] Potassium [Moles/Vol] 5 mmol/L 3.5 - 5.1 mmol/L [facility] Sodium [Moles/Vol] 132 mmol/L Low 135 - 145 mmol/L [facility] Urea nitrogen [Mass/Vol] 93 mg/dL High 8 - 25 mg/d L [facility] Urea nitrogen/Creatinine [Mass ratio] 35.8 mg/mg High 10.0 - 20.0 [facility] has implemented the eGFR calculation approach that does not have a coefficient for race that conforms to the NKF-ASN Task Force Recommendations. [facility] Beta hydroxybutyrate [Moles/ Vol]on 10-28-2024 Interpretation and review of laboratory results Normal [facility] Interpretation and review of laboratory results Normal [facility] Interpretation and review of laboratory results Abnormal [facility] Beta-Hydroxybutyrateon 10-28 Beta hydroxybutyrate [Moles/Vol] 0.1 mmol/L 0.0 - 0.3 mmol/L [facility] Beta hydroxybutyrate [Moles/Vol] mmol/L 0.0 - 0.3 mmol/L [facility] Beta hydroxybutyrate [Moles/Vol] 0.4 mmol/L High 0.0 - 0.3 mmol/L [facility] CBC Auto Differentialon 10-02 Basophils (Bld) [#/Vol] 0.08 10*3/uL [facility] Basophils/100 WBC (Bld) 0.8 % [facility] Eosinophils (Bld) [#/Vol] 0.06 10*3/uL [facility] Eosinophils/100 WBC (Bld) 0.6 % [facility] Erythrocyte distribution width (RBC) [Entitic vol] 13.6 % 11.6 - 14.8 % [facility] Hematocrit (Bld) [Volume fraction] 29 % Low 41.0 - 53.0 % [facility] Hemoglobin (Bld) [Mass/Vol] 9.3 g/dL Low 13.5 - 17.5 g/dL [facility] Immature granulocytes (Bld) [#/Vol] 0.03 10*3/uL [facility] Immature granulocytes/100 WBC (Bld) 0.3 % [facility] Comment on above: The IG parameter is the percentage of metamyelocytes, myelocytes and promyelocytes. An immature granulocyte count (IG) of 1% or more suggests the possibility of infection, an IG count of 3% is very likely related to an infection. Interpretation and review of laboratory results Abnormal [facility] Lymphocytes (Bld) [#/Vol] 2.94 10*3/uL [facility] Lymphocytes/100 WBC (Bld) 28.7 % [facility] MCH (RBC) [Entitic mass] 30.3 pg 26. 0 - 34.0 pg [facility] MCHC (RBC) [Mass/Vol] 32.1 g/dL 31.0 - 37.0 g/dL [facility] MCV (RBC) [Entitic vol] 94.5 fL 80.0 - 100.0 fL [facility] Monocytes (Bld) [#/Vol] 1.02 10*3/uL High [facility] Monocytes/100 WBC (Bld) 10 % [facility] Neutrophils (Bld) [#/Vol] 6.12 10*3/uL [facility] Neutrophils/100 WBC (Bld) 59.6 % [facility] Nucleated RBC (Bld) [#/Vol] 0 10*3/uL [facility] Nucleated RBC/100 WBC (Bld) [Ratio] 0 % [facility] Platelet mean volume (Bld) [Entitic vol] 10.8 fL 9.4 - 12.4 fL [facility] Platelets (Bld) [#/Vol] 188 10*3/uL [facility] RBC (Bld) [#/Vol] 3.07 10*6/uL [facility] WBC (Bld) [#/Vol] 10.25 10*3/uL [facility] CBC WITH AUTO DIFFERENTIALon 10-28-2024 AUTO NRBC 0.0 % Normal [facility] Comment on above: Performed By: #### L [id number] #### LAB [address] [place] [address] Moody Martinez M.D. [id number] AUTO NRBC ABS COUNT 0.00 K/mcL Normal 0.00-0.00 [facility] Comment on above: Performed By: #### L [id number] #### LAB [address] [place] [id number] Moody Martinez M.D. [id number] BASOPHILS ABSOLUTE COUNT 0.08 K/mcL Normal 0.00-0.[address] [facility] Comment on above: Performed By: #### L [id number] #### LAB [address] [place] [address] Moody Martinez M.D. [id number] Basophils/100 WBC (Bld) 0.8 % Normal [facility] Comment on above: Performed By: #### L [id number] #### LAB [address] [place] [address] Moody Martinez M.D. [id number] Eosinophils (Bld) [#/Vol] 0.06 10*3/uL Normal 0.00-0.[address] [facility] Comment on above: Performed By: #### L [id number] #### LAB [address] [place] [address] Moody Martinez M.D. [id number] Eosinophils/100 WBC (Bld) 0.6 % Normal [facility] Comment on above: Performed By: #### L [id number] #### LAB [address] [place] [address] Moody Matrinez M.D. [id number] Erythrocyte distribution width (RBC) [Ratio] 13.6 % Normal 11.6-14.[address] [facility] Comment on above: Performed By: #### L [id number] #### LAB [address] [place] [address] Moody Martinez M.D. [id number] Hematocrit (Bld) [Volume fraction] 29.0 % Low 41.0-53.[address] [facility] Comment on above: Performed By: #### L [id number] #### LAB [address] [place] [address] Moody Martinez M.D. [id number] Hemoglobin (Bld) [Mass/Vol] 9.3 g/dL Low 13.5-17.[address] [facility] Comment on above: Performed By: #### L [id number] #### LAB [address] [place] [address] Moody Martinez M.D. [id number] IG ABSOLUTE 0.03 K/mcL Normal 0.00-0.[address] [facility] Comment on above: Performed By: #### L [id number] #### LAB [address] [place] [address] Moody Martinez M.D. [id number] IG PERCENT 0.30 % Normal [facility] Comment on above: Result Comment: The IG parameter is the percentage of metamyelocytes, myelocytes and promyelocytes. An immature granulocyte count (IG) of 1% or more suggests the possibility of infection, an IG count of 3% is very likely related to an infection. Performed By: #### L [id number] #### LAB [address] [place] [address] Moody Martinez M.D. [id number] Lymphocytes (Bld) [#/Vol] 2.94 10*3/uL Normal 0.90-4.[address] [facility] Comment on above: Performed By: #### L [id number] #### LAB [address] [place] [address] Moody Martinez M.D. [id number] Lymphocytes/100 WBC (Bld) 28.7 % Normal [facility] Comment on above: Performed By: #### L [id number] #### LAB [address] [place] [address] Moody Martinez M.D. [id number] MCH (RBC) [Entitic mass] 30.3 pg Normal 26.0-34.[address] [facility] Comment on above: Performed By: #### L [id number] #### LAB [address] [place] [address] Moody Martinez M.D. [id number] MCV (RBC) [Entitic vol] 94.5 fL Normal 80.0-100.0 [facility] Comment on above: Performed By: #### L [id number] #### LAB [address] [place] [address] Moody Martinez M.D. [id number] MEAN CORPUSCULAR HEMOGLOBIN CONC 32.1 g/dL Normal 31.0-37.[address] [facility] Comment on above: Performed By: #### L [id number] #### LAB [address] [place] [address] Moody Martinez M.D. [id number] Monocytes (Bld) [#/Vol] 1.02 10*3/uL High 0.30-0.[address] [facility] Comment on above: Performed By: #### L [id number] #### LAB [address] [place] [address] Moody Martinez M.D. [id number] Monocytes/100 WBC (Bld) 10.0 % Normal [facility] Comment on above: Performed By: #### L [id number] #### LAB [address] [place] [address] Moody Martinez M.D. [id number] NEUTROPHILS ABSOLUTE COUNT 6.12 K/mcL Normal 1.70-7.[address] [facility] Comment on above: Performed By: #### L [id number] #### LAB [address] [place] [address] Moody Martinez M.D. [id number] Neutrophils/100 WBC (Bld) 59.6 % Normal [facility] Comment on above: Performed By: #### L [id number] #### LAB [address] [place] [address] Moody Martinez M.D. [id number] Platelet mean volume (Bld) [Entitic vol] 10.8 fL Normal 9.4-12.[address] [facility] Comment on above: Performed By: #### L [id number] #### LAB [address] [place] [address] Moody Martinez M.D. [id number] Platelets (Bld) [#/Vol] 188 10*3/uL Normal 150-[address] [facility] Comment on above: Performed By: #### L [id number] #### LAB [address] [place] [address] Moody Martinez M.D. [id number] RBC (Bld) [#/Vol] 3.07 10*6/uL Low 4.50-5.90 [facility] Comment on above: Performed By: #### L [id number] #### LAB [address] [place] [address] Moody Martinez M.D. [id number] WBC (Bld) [#/Vol] 10.25 10*3/uL Normal 4.50-11.00 [facility] Comment on above: Performed By: #### L [id number] #### [facility] [address] [place] [address] Moody Martinez M.D. [id number] CONSULTon 10-28-2024 CONSULT Attestation signed by Pedro West MD at 10/29/2024 9:27 AM Patient was evaluated by Keeley Patton CNP. Patient ID: Patient Name: Enoc Armando Admit Date: 10/27/2024 MR #: [id number] : 1945 Current location: [facility] Physicians: Ryley Jeter MD (Family); Dr [...] low back pain presented to [facility] on 10/27/2024 for an elective [...] Diagnosed in 1994. Patient is managed by [facility] endocrinology for his type 1 diabetes. He is currently taking Admelog insulin: 10 units at mealtime Lantus insulin: 12 units at bedtime Current monitoring regimen: home blood tests - 3 times daily Complications of diabetes include: Retinopathy: Negative Nephropathy: Positive Peripheral Neuropathy: Positive Autonomic Neuropathy: Negative Allergies: Allergies Allergen Reactions Dvrobql-Erh-Fyn Reductase Inhibitors Muscle cramps Home Medications: Outpatient [...] (more content not included)... Normal [facility] Glucose (Bld) [Mass/Vol]on 12-29-2023 Glucose [Mass/Vol] 321 mg/dL High 65 - 99 mg/dL [facility] Interpretation and review of laboratory results Abnormal [facility] Glucose [Mass/Vol] 288 mg/dL High 65 - 99 mg/dL [facility] Interpretation and review of laboratory results Abnormal [facility] Glucose [Mass/Vol] 130 mg/dL High 65 - 99 mg/dL [facility] Interpretation and review of laboratory results Abnormal [facility] Glucose [Mass/Vol] 55 mg/dL Critically low 65 - 99 mg/dL [facility] Interpretation and review of laboratory results Abnormal [facility] Critical result acted upon time of test. Test performed at bedside. [facility] Glucose [Mass/Vol] 85 mg/dL 65 - 99 mg/dL [facility] Interpretation and review of laboratory results Normal [facility] Glucose [Mass/Vol] 111 mg/dL High 65 - 99 mg/dL [facility] Interpretation and review of laboratory results Abnormal [facility] Glucose [Mass/Vol] 69 mg/dL 65 - 99 mg/dL [facility] Interpretation and review of laboratory results Normal [facility] Glucose [Mass/Vol] 76 mg/dL 65 - 99 mg/dL [facility] Interpretation and review of laboratory results Normal [facility] Glucose [Mass/Vol] 94 mg/dL 65 - 99 mg/dL [facility] Interpretation and review of laboratory results Normal [facility] Glucose [Mass/Vol] 115 mg/dL High 65 - 99 mg/dL [facility] Interpretation and review of laboratory results Abnormal [facility] Glucose [Mass/Vol] 168 mg/dL High 65 - 99 mg/dL [facility] Interpretation and review of laboratory results Abnormal [facility] Glucose [Mass/Vol] 215 mg/dL High 65 - 99 mg/dL [facility] Interpretation and review of laboratory results Abnormal [facility] Glucose [Mass/Vol] 336 mg/dL High 65 - 99 mg/dL [facility] Interpretation and review of laboratory results Abnormal [facility] Glucose [Mass/Vol] 443 mg/dL Critically high 65 - 99 mg/d L [facility] Interpretation and review of laboratory results Abnormal [facility] Critical result acted upon time of test. Test performed at bedside. [facility] HbA1c (Bld) [Mass fraction]o n 10-28-2024 Average glucose Estimated from glycated hemoglobin (Bld) [Mass/Vol] 237 mg/dL High 74 - 114 mg/dL [facility] Interpretation and review of laboratory results Abnormal [facility] Hemoglobin A1con 10-28-2024 HbA1c (Bld) [Mass fraction] 9.9 % High 4.2 - 5.6 % [facility] MAGNESIUM LEVELon 10-28-2024 Magnesium [Mass/Vol] 2.6 mg/dL High 1.6-2.4 [facility] Comment on above: Performed By: #### 4 [id number] #### LAB [address] [place], [place] [address] Moody Martinez M.D. [id number] Magnesium [Mass/Vol] 2.6 mg/dL High 1.6-2.4 [facility] Comment on above: Performed By: #### 4 [id number] #### MH LAB [address] [place] [address] Moody Martinez M.D. [id number] Magnesium Levelon 10-28-2024 Magnesium [Mass/Vol] 2.6 mg/dL High 1.6 - 2 .4 mg/dL [facility] Magnesium [Mass/Vol] 2.6 mg/dL High 1.6 - 2 .4 mg/dL [facility] Magnesium [Mass/Vol] 2.6 mg/dL High 1.6 - 2 .4 mg/dL [facility] No Panel Informationon 10-28 Interpretation and review of laboratory results Abnormal [facility] Interpretation and review of laboratory results Abnormal [facility] Interpretation and review of laboratory results Abnormal [facility] PHOSPHORUSon 10-28-2024 Phosphate [Mass/Vol] 4.7 mg/dL High 2.3-3.7 [facility] Comment on above: Performed By: #### 4 [id number] ####MH LAB [address] [place], [place] [address] Moody Martinez M.D. [id number] POC GLUCOSE - [facility] 024 Glucose [Mass/Vol] 321 mg/dL High [address] [place] [address] Comment on above: Performed By: #### L [id number] #### MH LAB [address] [place], [place] [address] Moody Martinez M.D. [id number] Glucose [Mass/Vol] 288 mg/dL High [address] [place] [address] Comment on above: Performed By: #### 4 [id number] ####MH LAB [address] [place] [id number] Moody Martinez M.D. [id number] Glucose [Mass/Vol] 130 mg/dL High [address] [place] [address] Comment on above: Performed By: #### 4 [id number] ####MH LAB [address] [place] [id number] Moody Martinez M.D. [id number] Glucose [Mass/Vol] 55 mg/dL Off scale low [address] [place] [address] Comment on above: Order Comment: Criti christian result acted upon time of test. Test performed at bedside. Performed By: #### 4 [id number] #### LAB [address] [place] [address] Moody Martinez M.D. [id number] Glucose [Mass/Vol] 85 mg/dL Normal [address] [place] [address] Comment on above: Performed By: #### 4 [id number] #### LAB [address] [place] [address] Moody Martinez M.D. [id number] Glucose [Mass/Vol] 111 mg/dL High [address] [place] [address] Comment on above: Performed By: #### L [id number] #### LAB [address] [place] [address] Moody Martinez M.D. [id number] Glucose [Mass/Vol] 69 mg/dL Normal [address] [place] [address] Comment on above: Performed By: #### 4 [id number] #### LAB [address] [place] [address] Moody Martinez M.D. [id number] Glucose [Mass/Vol] 76 mg/dL Normal [address] [place] [address] Comment on above: Performed By: #### 4 [id number] ####MH LAB [address] [place] [address] Moody Martinez M.D. [id number] Glucose [Mass/Vol] 94 mg/dL Normal [address] [place] [address] Comment on above: Performed By: #### 4 [id number] #### LAB [address] [place], [place] [address] Moody Martinez M.D. [id number] Glucose [Mass/Vol] 115 mg/dL High [address] [place] [address] Comment on above: Performed By: #### 4 [id number] #### LAB [address] [place] [address] Moody Martinez M.D. [id number] Glucose [Mass/Vol] 168 mg/dL High [address] [place] [address] Comment on above: Performed By: #### L [id number] #### LAB [address] [place] [address] Moody Martinez M.D. [id number] Glucose [Mass/Vol] 215 mg/dL High [address] [place] [address] Comment on above: Performed By: #### 4 [id number] #### LAB [address] [place] [address] Moody Martinez M.D. [id number] Glucose [Mass/Vol] 336 mg/dL High [address] [place] [address] Comment on above: Performed By: #### 4 [id number] #### LAB [address] [place] [address] Moody Martinez M.D. [id number] Phosphoruson 10-28-2024 Phosphate [Mass/Vol] 4.7 mg/dL High 2.3 - 3 .7 mg/dL [facility] Phosphate [Mass/Vol] 4.4 mg/dL High 2.3 - 3 .7 mg/dL [facility] ABOR VERIFICATIONon ABO and Rh group Nom (Bld) Blood group A Rh(D) positive Normal [facility] ABO and Rh group Nom (Bld) ABO/Rh Verification [facility] Comment on above: Result Comment: Twila ent's ABO/Rh is verified. [facility] Verificationon 024 ABO and Rh group Nom (Bld) Blood group A Rh(D) positive [facility] ABO and Rh group Nom (Bld) ABO/Rh Verification [facility] Comment on above: Patient's ABO/Rh is verified. [facility] AMYLASEon 10-27-2024 Amylase [Catalytic activity/Vol] 26.8 U/L Normal 13.0-53.[address] [facility] Comment on above: Performed By: #### 4 [id number] #### LAB [address] [place], [place] [address] Moody Martinez M.D. [id number] APTTon 10-27-2024 aPTT Coag (Bld) [Time] 74 s High [facility] aPTT Coag (Bld) [Time] 74 s High 23-34 [facility] Comment on above: Order Comment: Thera peutic range for APTT's is 68 - 104 seconds Performed By: #### 4 5113 #### LAB [address] [place], [place] [address] Moody Martinez M.D. [id number] Amylaseon 10-27-2024 Amylase.pancreatic [Catalytic activity/Vol] 26.8 U/L 13.0 - 53.0 U/L [facility] BASIC METABOLIC PANELon 10-02 Anion gap [Moles/Vol] 16 mmol/L Normal 10-20 [facility] Comment on above: Order Comment: [facility] has implemented the eGFR calculation approach that does not have a coefficient for race that conforms to the NKF-ASN Task Force Recommendations. Performed By: #### 4 6932 #### LAB [address] [place], [place] [address] Moody Martinez M.D. [id number] Calcium [Mass/Vol] 8.3 mg/dL Low 8.4-10.2 [facility] Comment on above: Order Comment: [facility] has implemented the eGFR calculation approach that does not have a coefficient for race that conforms to the NKF-ASN Task Force Recommendations. Performed By: #### 4 6932 #### LAB [address] [place], [place] [address] Moody Martinez M.D. [id number] Chloride [Moles/Vol] 103 mmol/L Normal 98-108 [facility] Comment on above: Order Comment: [facility] has implemented the eGFR calculation approach that does not have a coefficient for race that conforms to the NKF-ASN Task Force Recommendations. Performed By: #### 4 6932 #### LAB [address] [place] [address] Moody Martinez M.D. [id number] Creatinine [Mass/Vol] 2.60 mg/dL High 0.80-1.30 [facility] Comment on above: Order Comment: [facility] has implemented the eGFR calculation approach that does not have a coefficient for race that conforms to the NKF-ASN Task Force Recommendations. Performed By: #### 4 6932 #### LAB [address] [place] [address] Moody Martinez M.D. [id number] EGFR 24 mL/min/1.73 m2 Low >=60 [facility] Comment on above: Order Comment: [facility] has implemented the eGFR calculation approach that does not have a coefficient for race that conforms to the NKF-ASN Task Force Recommendations. Result Comment: Albin mated GFR was calculated using the 2020 CKD-EPI creatinine equation. Performed By: #### 4 6932 #### LAB [address] [place] [address] Moody Martinez M.D. [id number] Glucose [Mass/Vol] 495 mg/dL Off scale high 65-99 [facility] Comment on above: Order Comment: [facility] has implemented the eGFR calculation approach that does not have a coefficient for race that conforms to the NKF-ASN Task Force Recommendations. Performed By: #### 4 6932 #### LAB [address] [place] [address] Moody Martinez M.D. [id number] HCO3 (Bld) [Moles/Vol] 18 mmol/L Low 21-32 [facility] Comment on above: Order Comment: [facility] has implemented the eGFR calculation approach that does not have a coefficient for race that conforms to the NKF-ASN Task Force Recommendations. Performed By: #### 4 6932 #### LAB [address] [place] [address] Moody Martinez M.D. [id number] Potassium [Moles/Vol] 5.0 mmol/L Normal 3.5-5.1 [facility] Comment on above: Order Comment: [facility] has implemented the eGFR calculation approach that does not have a coefficient for race that conforms to the NKF-ASN Task Force Recommendations. Performed By: #### 4 6932 #### LAB [address] [place], [place] [address] Moody Martinez M.D. [id number] Sodium [Moles/Vol] 132 mmol/L Low 135-145 [facility] Comment on above: Order Comment: [facility] has implemented the eGFR calculation approach that does not have a coefficient for race that conforms to the NKF-ASN Task Force Recommendations. Performed By: #### 4 6932 #### LAB [address] [place], [place] [address] Moody Martinez M.D. [id number] Urea nitrogen [Mass/Vol] 93 mg/dL High 8- [facility] Comment on above: Order Comment: [facility] has implemented the eGFR calculation approach that does not have a coefficient for race that conforms to the NKF-ASN Task Force Recommendations. Performed By: #### 4 6977 #### LAB [address] [place], [place] [address] Moody Martinez M.D. [id number] Urea nitrogen/Creatinine [Mass ratio] 35.8 mg/mg High 10.0-20.[address] [facility] Comment on above: Order Comment: [facility] has implemented the eGFR calculation approach that does not have a coefficient for race that conforms to the NKF-ASN Task Force Recommendations. Performed By: #### 4 6956 #### MH LAB [address] [place], [place] [address] Moody Martinez M.D. [id number] BETA-HYDROXYBUTYRATEon 10-27 BETA-HYDROXYBUTYRATE 0.4 mmol/L High 0.0-0.3 [facility] Comment on above: Performed By: #### 4 5151 #### LAB [address] [place] [address] Moody Martinez M.D. [id number] BETA-HYDROXYBUTYRATE 2.3 mmol/L High 0.0-0.3 [facility] Comment on above: Performed By: #### 4 5139 #### LAB [address] [place] [address] Moody Martinez M.D. [id number] BETA-HYDROXYBUTYRATE 0.7 mmol/L High 0.0-0.3 [facility] Comment on above: Performed By: #### 4 6932 #### LAB [address] [place] [address] Moody Martinez M.D. [id number] BILIRUBIN, DIRECTon 10-27-20 BILIRUBIN, DIRECT < Normal 0.0-0.4 [facility] Comment on above: Performed By: #### 4 5145 #### LAB [address] [place] [address] Moody Martinez M.D. [id number] Beta hydroxybutyrate [Moles/ Vol]on 10-27-2024 Interpretation and review of laboratory results Abnormal [facility] Interpretation and review of laboratory results Abnormal [facility] Beta-Hydroxybutyrateon 10-27 Beta hydroxybutyrate [Moles/Vol] 2.3 mmol/L High 0.0 - 0.3 mmol/L [facility] Beta hydroxybutyrate [Moles/Vol] 0.7 mmol/L High 0.0 - 0.3 mmol/L [facility] Bilirubin.direct [Mass/Vol]o n 10-27-2024 Bilirubin.conjugated [Mass/Vol] mg/dL 0.0 - 0.4 mg/dL [facility] Interpretation and review of laboratory results Normal [facility] Blood type and Indirect anti body screen panel (Bld)on 10-27-2024 ABO and Rh group Nom (Bld) Blood group A Rh(D) positive [facility] Blood group antibody screen Ql Negative [facility] Specimen Expires 10/30/2024 23:59 EST [facility] CBC Auto Differentialon 10-02 Basophils (Bld) [#/Vol] 0.04 10*3/uL [facility] Basophils/100 WBC (Bld) 0.5 % [facility] Eosinophils (Bld) [#/Vol] 0 10*3/uL [facility] Eosinophils/100 WBC (Bld) 0 % [facility] Erythrocyte distribution width (RBC) [Entitic vol] 13.7 % 11.6 - 14.8 % [facility] Hematocrit (Bld) [Volume fraction] 34.8 % Low 41.0 - 53.0 % [facility] Hemoglobin (Bld) [Mass/Vol] 11.2 g/dL Low 13.5 - 17.5 g/dL [facility] Immature granulocytes (Bld) [#/Vol] 0.04 10*3/uL [facility] Immature granulocytes/100 WBC (Bld) 0.5 % [facility] Comment on above: The IG parameter is the percentage of metamyelocytes, myelocytes and promyelocytes. An immature granulocyte count (IG) of 1% or more suggests the possibility of infection, an IG count of 3% is very likely related to an infection. Interpretation and review of laboratory results Abnormal [facility] Lymphocytes (Bld) [#/Vol] 1.2 10*3/uL [facility] Lymphocytes/100 WBC (Bld) 13.8 % [facility] MCH (RBC) [Entitic mass] 30 pg 26. 0 - 34.0 pg [facility] MCHC (RBC) [Mass/Vol] 32.2 g/dL 31.0 - 37.0 g/dL [facility] MCV (RBC) [Entitic vol] 93.3 fL 80.0 - 100.0 fL [facility] Monocytes (Bld) [#/Vol] 0.11 10*3/uL Low [facility] Monocytes/100 WBC (Bld) 1.3 % [facility] Neutrophils (Bld) [#/Vol] 7.32 10*3/uL High [facility] Neutrophils/100 WBC (Bld) 83.9 % [facility] Nucleated RBC (Bld) [#/Vol] 0 10*3/uL [facility] Nucleated RBC/100 WBC (Bld) [Ratio] 0 % [facility] Platelet mean volume (Bld) [Entitic vol] 11.2 fL 9.4 - 12.4 fL [facility] Platelets (Bld) [#/Vol] 234 10*3/uL [facility] RBC (Bld) [#/Vol] 3.73 10*6/uL [facility] WBC (Bld) [#/Vol] 8.71 10*3/uL [facility] CBC WITH AUTO DIFFERENTIALon 10-27-2024 AUTO NRBC 0.0 % Normal [facility] Comment on above: Performed By: #### L [id number] #### LAB [address] [place] [address] Moody Martinez M.D. [id number] AUTO NRBC ABS COUNT 0.00 K/mcL Normal 0.00-0.00 [facility] Comment on above: Performed By: #### L [id number] #### LAB [address] [place] [address] Moody Martinez M.D. [id number] BASOPHILS ABSOLUTE COUNT 0.04 K/mcL Normal 0.00-0.[address] [facility] Comment on above: Performed By: #### L [id number] #### LAB [address] [place] [address] Moody Martinez M.D. [id number] Basophils/100 WBC (Bld) 0.5 % Normal [facility] Comment on above: Performed By: #### L [id number] #### LAB [address] [place] [address] Moody Martinez M.D. [id number] Eosinophils (Bld) [#/Vol] 0.00 10*3/uL Normal 0.00-0.[address] [facility] Comment on above: Performed By: #### L [id number] #### LAB [address] [place] [address] Moody Martinez M.D. [id number] Eosinophils/100 WBC (Bld) 0.0 % Normal [facility] Comment on above: Performed By: #### L [id number] #### LAB [address] [place] [address] Moody Martinez M.D. [id number] Erythrocyte distribution width (RBC) [Ratio] 13.7 % Normal 11.6-14.[address] [facility] Comment on above: Performed By: #### L [id number] #### LAB [address] [place] [address] Moody Martinez M.D. [id number] Hematocrit (Bld) [Volume fraction] 34.8 % Low 41.0-53.[address] [facility] Comment on above: Performed By: #### L [id number] #### LAB [address] [place] [address] Moody Martinez M.D. [id number] Hemoglobin (Bld) [Mass/Vol] 11.2 g/dL Low 13.5-17.[address] [facility] Comment on above: Performed By: #### L [id number] #### LAB [address] [place] [address] Moody Martinez M.D. [id number] IG ABSOLUTE 0.04 K/mcL Normal 0.00-0.[address] [facility] Comment on above: Performed By: #### L [id number] #### LAB [address] [place] [address] Moody Martinez M.D. [id number] IG PERCENT 0.50 % [facility] Comment on above: Result Comment: The IG parameter is the percentage of metamyelocytes, myelocytes and promyelocytes. An immature granulocyte count (IG) of 1% or more suggests the possibility of infection, an IG count of 3% is very likely related to an infection. Performed By: #### L [id number] #### LAB [address] [place] [address] Moody Martinez M.D. [id number] Lymphocytes (Bld) [#/Vol] 1.20 10*3/uL Normal 0.90-4.[address] [facility] Comment on above: Performed By: #### L [id number] ####[facility] LAB [address] [place] [address] Moody Martinez M.D. [id number] Lymphocytes/100 WBC (Bld) 13.8 % [facility] Comment on above: Performed By: #### L [id number] #### LAB [address] [place] [address] Moody Martinez M.D. [id number] MCH (RBC) [Entitic mass] 30.0 pg Normal 26.0-34.[address] [facility] Comment on above: Performed By: #### L [id number] #### LAB [address] [place] [address] Moody Martinez M.D. [id number] MCV (RBC) [Entitic vol] 93.3 fL Normal 80.0-100.0 [facility] Comment on above: Performed By: #### L [id number] #### LAB [address] [place] [address] Moody Martinez M.D. [id number] MEAN CORPUSCULAR HEMOGLOBIN CONC 32.2 g/dL Normal 31.0-37.[address] [facility] Comment on above: Performed By: #### L [id number] #### LAB [address] [place] [address] Moody Martinez M.D. [id number] Monocytes (Bld) [#/Vol] 0.11 10*3/uL Low 0.30-0.[address] [facility] Comment on above: Performed By: #### L [id number] #### LAB [address] [address] Moody Martinez M.D. [id number] Monocytes/100 WBC (Bld) 1.3 % Normal [facility] Comment on above: Performed By: #### L [id number] #### LAB [address] [place] [address] Moody Martinez M.D. [id number] NEUTROPHILS ABSOLUTE COUNT 7.32 K/mcL High 1.70-7.[address] [facility] Comment on above: Performed By: #### L [id number] #### LAB [address] [place] [address] Moody Martinez M.D. [id number] Neutrophils/100 WBC (Bld) 83.9 % Normal [facility] Comment on above: Performed By: #### L [id number] #### LAB [address] [place] [address] Moody Martinez M.D. [id number] Platelet mean volume (Bld) [Entitic vol] 11.2 fL Normal 9.4-12.[address] [facility] Comment on above: Performed By: #### L [id number] #### LAB [address] [place] [address] Moody Martinez M.D. [id number] Platelets (Bld) [#/Vol] 234 10*3/uL Normal 150-[address] [facility] Comment on above: Performed By: #### L [id number] ####MH LAB [address] [address] Moody Martinez M.D. [id number] RBC (Bld) [#/Vol] 3.73 10*6/uL Low 4.50-5.90 [facility] Comment on above: Performed By: #### L [id number] #### LAB [address] [place] [address] Moody Martinez M.D. [id number] WBC (Bld) [#/Vol] 8.71 10*3/uL Normal 4.50-11.00 [facility] Comment on above: Performed By: #### L [id number] #### LAB [address] [address] Moody Martinez M.D. [id number] CITRATED TEG (CARDIAC) WITH HEPARINASE PANEL MUST[facility] 10-27-2024 (CFF-FLEV) CITRATED FUNCTIONAL FIBRINOGEN -EST. FUNCTIONAL FIBRINOGEN LEVEL 381.4 mg/dL Normal 278.0-581.[address] [facility] Comment on above: Performed By: #### L [id number] ####MH LAB [address] [place] [address] Moody Martinez M.D. [id number] (CFF-MA) CITRATED FUNCTIONAL FIBRINOGEN - [place] 20.9 mm Normal 15.0-32.[address] [facility] Comment on above: Performed By: #### L [id number] ####MH LAB [address] [place] [address] Moody Martinez M.D. [id number] (CK-ANGLE) CITRATED KAOLIN-ALPHA ANGLE 73.2 deg Normal 63.0-78.[address] [facility] Comment on above: Performed By: #### L [id number] #### LAB [address] [place] [address] Moody Martinez M.D. [id number] (CK-K) CITRATED KAOLIN-SPEED OF CLOT FORMATION 1.3 min Normal 0.8-2.[address] [facility] Comment on above: Performed By: #### L [id number] #### LAB [address] [place] [address] Moody Martinez M.D. [id number] (CK-MA) CITRATED KAOLIN-MAXIMUM CLOT STRENGTH 50.9 mm Low 52.0-69.[address] [facility] Comment on above: Performed By: #### L [id number] #### LAB [address] [place] [address] Moody Martinez M.D. [id number] (CK-R) CITRATED KAOLIN - REACTION TIME 16.4 min High 4.6-9.[address] [facility] Comment on above: Performed By: #### L [id number] #### LAB [address] [place] [address] Moody Martinez M.D. [id number] (CKH-R) CITRATED KAOLIN WITH HEPARINASE-REACTION TIME 7.6 min Normal 4.3-8.[address] [facility] Comment on above: Performed By: #### L [id number] ####MH LAB [address] [place] [address] Moody Martinez M.D. [id number] (JAWBONE PULLER-[place]) CITRATED RAPID TEG - [place] 62.3 mm Normal 52.0-70.[address] [facility] Comment on above: Performed By: #### L [id number] #### LAB [address] [place] [address] Moody Martinez M.D. [id number] [facility] Albumin [Mass/Vol] 3.4 g/dL Normal 3.2-5.2 [facility] Comment on above: Order Comment: [facility] has implemented the eGFR calculation approach that does not have a coefficient for race that conforms to the NKF-ASN Task Force Recommendations. Performed By: #### 4 6126 #### LAB [address] [place] [address] Moody Martinez M.D. [id number] ALP [Catalytic activity/Vol] 86 U/L Normal 40-[address] [facility] Comment on above: Order Comment: [facility] has implemented the eGFR calculation approach that does not have a coefficient for race that conforms to the NKF-ASN Task Force Recommendations. Performed By: #### 4 6126 #### LAB [address] [place] [address] Moody Martinez M.D. [id number] ALT [Catalytic activity/Vol] 13 U/L Normal 0-50 U/L [facility] Comment on above: Order Comment: [facility] has implemented the eGFR calculation approach that does not have a coefficient for race that conforms to the NKF-ASN Task Force Recommendations. Performed By: #### 4 6126 #### LAB [address] [place] [address] Moody Martinez M.D. [id number] Anion gap [Moles/Vol] 20 mmol/L Normal 10-20 [facility] Comment on above: Order Comment: [facility] has implemented the eGFR calculation approach that does not have a coefficient for race that conforms to the NKF-ASN Task Force Recommendations. Performed By: #### 4 6126 #### LAB [address] [place] [address] Moody Martinez M.D. [id number] AST [Catalytic activity/Vol] 12 U/L Normal 0-50 U/L [facility] Comment on above: Order Comment: [facility] has implemented the eGFR calculation approach that does not have a coefficient for race that conforms to the NKF-ASN Task Force Recommendations. Performed By: #### 4 6126 #### LAB [address] [address] Moody Martinez M.D. [id number] Bilirubin [Mass/Vol] 0.3 mg/dL Normal 0.0-1.3 [facility] Comment on above: Order Comment: [facility] has implemented the eGFR calculation approach that does not have a coefficient for race that conforms to the NKF-ASN Task Force Recommendations. Performed By: #### 4 [id number] #### LAB [address] [address] Moody Martinez M.D. [id number] Calcium [Mass/Vol] 8.4 mg/dL Normal 8.4-10.2 [facility] Comment on above: Order Comment: [facility] has implemented the eGFR calculation approach that does not have a coefficient for race that conforms to the NKF-ASN Task Force Recommendations. Performed By: #### 4 [id number] #### LAB [address] [address] Moody Martinez M.D. [id number] Chloride [Moles/Vol] 99 mmol/L Normal 98-108 [facility] Comment on above: Order Comment: [facility] has implemented the eGFR calculation approach that does not have a coefficient for race that conforms to the NKF-ASN Task Force Recommendations. Performed By: #### 4 [id number] #### LAB [address] [address] Moody Martinez M.D. [id number] Creatinine [Mass/Vol] 2.55 mg/dL High 0.80-1.30 [facility] Comment on above: Order Comment: [facility] has implemented the eGFR calculation approach that does not have a coefficient for race that conforms to the NKF-ASN Task Force Recommendations. Performed By: #### 4 6126 #### LAB [address] [address] Moody Martinez M.D. [id number] EGFR 25 mL/min/1.73 m2 Low >=60 [facility] Comment on above: Order Comment: [facility] has implemented the eGFR calculation approach that does not have a coefficient for race that conforms to the NKF-ASN Task Force Recommendations. Result Comment: Albin mated GFR was calculated using the 2020 CKD-EPI creatinine equation. Performed By: #### 4 6142 #### LAB [address] [address] Moody Martinez M.D. [id number] Glucose [Mass/Vol] 564 mg/dL Off scale high 65-99 [facility] Comment on above: Order Comment: [facility] has implemented the eGFR calculation approach that does not have a coefficient for race that conforms to the NKF-ASN Task Force Recommendations. Performed By: #### 4 6126 #### LAB [address] [address] Moody Martinez M.D. [id number] HCO3 (Bld) [Moles/Vol] 15 mmol/L Low 21-32 [facility] Comment on above: Order Comment: [facility] has implemented the eGFR calculation approach that does not have a coefficient for race that conforms to the NKF-ASN Task Force Recommendations. Performed By: #### 4 6126 #### LAB [address] [address] Moody Martinez M.D. [id number] Potassium [Moles/Vol] 5.9 mmol/L High 3.5-5.1 [facility] Comment on above: Order Comment: [facility] has implemented the eGFR calculation approach that does not have a coefficient for race that conforms to the NKF-ASN Task Force Recommendations. Performed By: #### 4 6126 #### LAB [address] [address] Moody Martinez M.D. [id number] Protein [Mass/Vol] 5.8 g/dL Low 6.0-8.0 [facility] Comment on above: Order Comment: [facility] has implemented the eGFR calculation approach that does not have a coefficient for race that conforms to the NKF-ASN Task Force Recommendations. Performed By: #### 4 6126 #### LAB [address] [address] Moody Martinez M.D. [id number] Sodium [Moles/Vol] 128 mmol/L Low 135-145 [facility] Comment on above: Order Comment: [facility] has implemented the eGFR calculation approach that does not have a coefficient for race that conforms to the NKF-ASN Task Force Recommendations. Performed By: #### 4 6126 #### LAB [address] [address] Moody Martinez M.D. [id number] Urea nitrogen [Mass/Vol] 93 mg/dL High 8-[address] [facility] Comment on above: Order Comment: [facility] has implemented the eGFR calculation approach that does not have a coefficient for race that conforms to the NKF-ASN Task Force Recommendations. Performed By: #### 4 6126 #### LAB [address] [address] Moody Martinez M.D. [id number] Urea nitrogen/Creatinine [Mass ratio] 36.5 mg/mg High 10.0-20.[address] [facility] Comment on above: Order Comment: [facility] has implemented the eGFR calculation approach that does not have a coefficient for race that conforms to the NKF-ASN Task Force Recommendations. Performed By: #### 4 6126 #### LAB [address] [address] Moody Martinez M.D. [id number] Albumin [Mass/Vol] 3.5 g/dL Normal 3.2-5.2 [facility] Comment on above: Order Comment: [facility] has implemented the eGFR calculation approach that does not have a coefficient for race that conforms to the NKF-ASN Task Force Recommendations. Performed By: #### 4 6126 #### LAB [address] [address] Moody Martinez M.D. [id number] ALP [Catalytic activity/Vol] 92 U/L Normal 40-[address] [facility] Comment on above: Order Comment: [facility] has implemented the eGFR calculation approach that does not have a coefficient for race that conforms to the NKF-ASN Task Force Recommendations. Performed By: #### 4 6126 #### LAB [address] [address] Moody Martinez M.D. [id number] ALT [Catalytic activity/Vol] 21 U/L Normal 0-50 U/L [facility] Comment on above: Order Comment: [facility] has implemented the eGFR calculation approach that does not have a coefficient for race that conforms to the NKF-ASN Task Force Recommendations. Performed By: #### 4 6126 #### LAB [address] [address] Moody Martinez M.D. [id number] Anion gap [Moles/Vol] 20 mmol/L Normal 10-20 [facility] Comment on above: Order Comment: [facility] has implemented the eGFR calculation approach that does not have a coefficient for race that conforms to the NKF-ASN Task Force Recommendations. Performed By: #### 4 6126 #### LAB [address] [address] Moody Martinez M.D. [id number] AST [Catalytic activity/Vol] 14 U/L Normal 0-50 U/L [facility] Comment on above: Order Comment: [facility] has implemented the eGFR calculation approach that does not have a coefficient for race that conforms to the NKF-ASN Task Force Recommendations. Performed By: #### 4 6126 #### LAB [address] [address] Moody Martinez M.D. [id number] Bilirubin [Mass/Vol] 0.3 mg/dL Normal 0.0-1.3 [facility] Comment on above: Order Comment: [facility] has implemented the eGFR calculation approach that does not have a coefficient for race that conforms to the NKF-ASN Task Force Recommendations. Performed By: #### 4 6126 #### LAB [address] [address] Moody Martinez M.D. [id number] Calcium [Mass/Vol] 8.7 mg/dL Normal 8.4-10.2 [facility] Comment on above: Order Comment: [facility] has implemented the eGFR calculation approach that does not have a coefficient for race that conforms to the NKF-ASN Task Force Recommendations. Performed By: #### 4 6126 #### LAB [address] [place], [place] [address] Moody Martinez M.D. [id number] Chloride [Moles/Vol] 99 mmol/L Normal 98-108 [facility] Comment on above: Order Comment: [facility] has implemented the eGFR calculation approach that does not have a coefficient for race that conforms to the NKF-ASN Task Force Recommendations. Performed By: #### 4 6126 #### LAB [address] [place], [place] [address] Moody Martinez M.D. [id number] Creatinine [Mass/Vol] 2.60 mg/dL High 0.80-1.30 [facility] Comment on above: Order Comment: [facility] has implemented the eGFR calculation approach that does not have a coefficient for race that conforms to the NKF-ASN Task Force Recommendations. Performed By: #### 4 6126 #### LAB [address] [place], [place] [address] Moody Martinez M.D. [id number] EGFR 24 mL/min/1.73 m2 Low >=60 [facility] Comment on above: Order Comment: [facility] has implemented the eGFR calculation approach that does not have a coefficient for race that conforms to the NKF-ASN Task Force Recommendations. Result Comment: Albin mated GFR was calculated using the 2020 CKD-EPI creatinine equation. Performed By: #### 4 6126 #### LAB [address] [place], [place] [address] Moody Martinez M.D. [id number] Glucose [Mass/Vol] 467 mg/dL Off scale high 65-99 [facility] Comment on above: Order Comment: [facility] has implemented the eGFR calculation approach that does not have a coefficient for race that conforms to the NKF-ASN Task Force Recommendations. Performed By: #### 4 6126 #### LAB [address] [address] Moody Martinez M.D. [id number] HCO3 (Bld) [Moles/Vol] 17 mmol/L Low 21-32 [facility] Comment on above: Order Comment: [facility] has implemented the eGFR calculation approach that does not have a coefficient for race that conforms to the NKF-ASN Task Force Recommendations. Performed By: #### 4 6126 #### LAB [address] [address] Moody Martinez M.D. [id number] Potassium [Moles/Vol] 6.3 mmol/L Off scale high 3.5-5.[address] [facility] Comment on above: Order Comment: [facility] has implemented the eGFR calculation approach that does not have a coefficient for race that conforms to the NKF-ASN Task Force Recommendations. Performed By: #### 4 6126 #### LAB [address] [address] Moody Martinez M.D. [id number] Protein [Mass/Vol] 5.6 g/dL Low 6.0-8.0 [facility] Comment on above: Order Comment: [facility] has implemented the eGFR calculation approach that does not have a coefficient for race that conforms to the NKF-ASN Task Force Recommendations. Performed By: #### 4 6126 #### LAB [address] [address] Moody Martinez M.D. [id number] Sodium [Moles/Vol] 130 mmol/L Low 135-145 [facility] Comment on above: Order Comment: [facility] has implemented the eGFR calculation approach that does not have a coefficient for race that conforms to the NKF-ASN Task Force Recommendations. Performed By: #### 4 6126 #### LAB [address] [address] Moody Martinez M.D. [id number] Urea nitrogen [Mass/Vol] 92 mg/dL High 8-[address] [facility] Comment on above: Order Comment: [facility] has implemented the eGFR calculation approach that does not have a coefficient for race that conforms to the NKF-ASN Task Force Recommendations. Performed By: #### 4 6126 #### LAB [address] [place], [place] [address] Moody Martinez M.D. [id number] Urea nitrogen/Creatinine [Mass ratio] 35.4 mg/mg High 10.0-20.[address] [facility] Comment on above: Order Comment: [facility] has implemented the eGFR calculation approach that does not have a coefficient for race that conforms to the NKF-ASN Task Force Recommendations. Performed By: #### 4 6126 #### LAB [address] [place], [place] [address] Moody Martinez M.D. [id number] CORONARY ANGIOGRAPHYon 10-27 CORONARY ANGIOGRAPHY This is [...] across the aortic valve. Normal [facility] CT CHEST WITHOUT CONTRASTon 10-27-2024 [...] the subcutaneous tissues of the chest wall. [employer] Workstation ID: [id number] Dictated by: KAHLIL VARGHESE on WedOct 27, 2024 1:25:27 PM EST Transcribed by: WARREN PRITCHARD on WedOct 27, 2024 1:31:49 PM EST Finalized by: KAHLIL VARGHESE on WedOct 27, 2024 3:01:00 PM EST Normal [facility] Comment on above: Order Comment: Injur y/Trauma or Illness?:Illness/Other How long have you had these symptoms (acute/chronic)?:Acute Reason for exam?:cross clamp of aorta for CPB Type of Exam?:Initial Additional signs and symptoms?:cp CT Chest [facility] 10-27 1. Heavy atherosclerotic vascular disease including heavy plaquing of the ascending thoracic aorta but predominately involving the posterior wall. 2. Bilateral strand-like and dependent posterior lower lobe opacities consistent with atelectasis. Otherwise, no acute pulmonary disease or suspicious nodules. 3. Small hiatal hernia. 4. Mild edema in the subcutaneous tissues of the chest wall. [employer] Workstation ID: [id number] [facility] EXAMINATION: CT CHEST WITHOUT CONTRAST HISTORY: ORDERING [...] STRUCTURES: No aggressive bone lesions. Intact sternum. [employer] [facility] Abimael Kahlil Darren, DO - 10/27/2024 EXAMINATION: CT CHEST WITHOUT [...] of the chest wall. [employer] Workstation ID: [id number] [facility] Radiology Study observation (narrative) [facility] Cardiac Catheterizationon Impression: Multivessel complex calcified obstructive [...] no significant gradient across the aortic valve. [employer] Flow[employer] CV [facility] Citrated TEG (Cardiac) with HeparinaseOrdered By: Burton Zendejas on 10-27-2024 (CFF-FLEV) Cit. Func.Fib.Estimated Func.Fibrinogen Level 381.4 mg/dL 278.0 - 581.0 mg/dL [facility] Clot angle TEG (Bld) [Angle] 73.2 deg 63.0 - 78.0 deg [facility] Clot formation TEG (Bld) [Time] 1.3 min 0.8 - 2.1 min [facility] Clotting time after addition of heparinase TEG (Bld) 7.6 min 4.3 - 8.3 min [facility] Clotting time.intrinsic coagulation system activated Rotational TEG (Bld) 16.4 min High 4.6 - 9.1 min [facility] Interpretation and review of laboratory results Abnormal [facility] Maximum clot firmness TEG (Bld) [Length] 50.9 mm Low 52.0 - 69.0 mm [facility] Maximum clot firmness TEG (Bld) [Length] 20.9 mm 15.0 - 32.0 mm [facility] Maximum clot firmness.extrinsic coagulation system activated Rotational TEG (Bld) [Length] 62.3 mm 52.0 - 70.0 mm [facility] Comprehensive metabolic 2000 panelOrdered By: Ya Izaguirre on 10-27-2024 Albumin [Mass/Vol] 3.4 g/dL 3.2 - 5.2 g/dL [facility] ALP [Catalytic activity/Vol] 86 U/L 40 - 150 U/L [facility] ALT [Catalytic activity/Vol] 13 U/L 0-50 U/L [facility] Anion gap [Moles/Vol] 20 mmol/L 10 - 2 0 mmol/L [facility] AST [Catalytic activity/Vol] 12 U/L 0-50 U/L [facility] Bilirubin [Mass/Vol] 0.3 mg/dL 0.0 - 1 .3 mg/dL [facility] Calcium [Mass/Vol] 8.4 mg/dL 8.4 - 10. 2 mg/dL [facility] Chloride [Moles/Vol] 99 mmol/L 98 - 10 8 mmol/L [facility] Creatinine [Mass/Vol] 2.55 mg/dL High 0.80 - 1.30 mg/dL [facility] GFR/1.73 sq M.predicted CKD-EPI (S/P/Bld) [Vol rate/Area] 25 Low - PINF [facility] Comment on above: Estimated GFR was ca lculated using the 2020 CKD-EPI creatinine equation. Glucose [Mass/Vol] 564 mg/dL Critically high 65 - 99 mg/d L [facility] HCO3 [Moles/Vol] 15 mmol/L Low 21 - 32 mmol/L [facility] Potassium [Moles/Vol] 5.9 mmol/L High 3.5 - 5.1 mmol/L [facility] Protein [Mass/Vol] 5.8 g/dL Low 6.0 - 8.0 g/dL [facility] Sodium [Moles/Vol] 128 mmol/L Low 135 - 145 mmol/L [facility] Urea nitrogen [Mass/Vol] 93 mg/dL High 8 - 25 mg/d L [facility] Urea nitrogen/Creatinine [Mass ratio] 36.5 mg/mg High 10.0 - 20.0 [facility] Services has implemented the eGFR calculation approach that does not have a coefficient for race that conforms to the NKF-ASN Task Force Recommendations. [facility] Comprehensive metabolic 2000 panelOrdered By: Rosalia March on 10-27-2024 Albumin [Mass/Vol] 3.5 g/dL 3.2 - 5.2 g/dL [facility] ALP [Catalytic activity/Vol] 92 U/L 40 - 150 U/L [facility] ALT [Catalytic activity/Vol] 21 U/L 0-50 U/L [facility] Anion gap [Moles/Vol] 20 mmol/L 10 - 2 0 mmol/L [facility] AST [Catalytic activity/Vol] 14 U/L 0-50 U/L [facility] Bilirubin [Mass/Vol] 0.3 mg/dL 0.0 - 1 .3 mg/dL [facility] Calcium [Mass/Vol] 8.7 mg/dL 8.4 - 10. 2 mg/dL [facility] Chloride [Moles/Vol] 99 mmol/L 98 - 10 8 mmol/L [facility] Creatinine [Mass/Vol] 2.6 mg/dL High 0.80 - 1.30 mg/dL [facility] GFR/1.73 sq M.predicted CKD-EPI (S/P/Bld) [Vol rate/Area] 24 Low - PINF [facility] Comment on above: Estimated GFR was ca lculated using the 2020 CKD-EPI creatinine equation. Glucose [Mass/Vol] 467 mg/dL Critically high 65 - 99 mg/d L [facility] HCO3 [Moles/Vol] 17 mmol/L Low 21 - 32 mmol/L [facility] Interpretation and review of laboratory results Abnormal [facility] Potassium [Moles/Vol] 6.3 mmol/L Critically high 3.5 - 5.1 mmol/L [facility] Protein [Mass/Vol] 5.6 g/dL Low 6.0 - 8.0 g/dL [facility] Sodium [Moles/Vol] 130 mmol/L Low 135 - 145 mmol/L [facility] Urea nitrogen [Mass/Vol] 92 mg/dL High 8 - 25 mg/d L [facility] Urea nitrogen/Creatinine [Mass ratio] 35.4 mg/mg High 10.0 - 20.0 [facility] Services has implemented the eGFR calculation approach that does not have a coefficient for race that conforms to the NKF-ASN Task Force Recommendations. [facility] ECHOCARDIOGRAM COMPLETEon ECHOCARDIOGRAM COMPLETE Patient Info Name: ENOC ARMANDO Age: 78 years : 1945 Gender: Male Ht: 170 cm Wt: 66 kg BSA: 1.77 m2 HR: 63 bpm BP: 148 / 55 mmHg Heart Rhythm: Sinus Arrhythmia Technical Quality: Fair Exam Date: 10/27/2024 1:22 PM Patient Status: Outpatient Audit Control Clerk: Jyoti Perez RDCS Exam Type: ECHOCARDIOGRAM COMPLETE Study Info Indications - Abnormal electrocardiogram [ECG] [EKG] Referring Physician: MARIE Arriaga; [id number] BMI: 22.71 kg/m2 Summary 1. Normal LV [...] mmHg MV VTI [address] [facility] 850 cm/s2 MV PHT 90 ms MV [...] (more content not included)... Normal [facility] Echo completeOrdered By: Fauzia Garay on 10-27-2024 Aortic valve area 3.66874 cm [facility] Work Phone: [phone] AV mean gradient 4 mmHg [facility] Work Phone: [phone] AV peak gradient 7.1824 mmHg [facility] Work Phone: [phone] 70.2889 % [facility] Work Phone: [phone] [facility] Work Phone: [phone] Echo completeon 10-27-2024 Patient Info Name: ENOC ARMANDO Age: 78 years : 1945 Gender: Male Ht: 170 cm Wt: 66 kg BSA: 1.77 m2 HR: 63 bpm BP: 148 / 55 mmHg Heart Rhythm: Sinus Arrhythmia Technical Quality: Fair Exam Date: 10/27/2024 1:22 PM Patient Status: Outpatient Audit Control Clerk: Jyoti Perez RDCS Exam Type: ECHOCARDIOGRAM COMPLETE Study Info Indications - Abnormal electrocardiogram [ECG] [EKG] Referring Physician: MARIE Arriaga; [id number] BMI: 22.71 kg/m2 Summary 1. Normal LV [...] Date: 10/27/2024 1:22 PM Patient Status: Outpatient Audit Control Clerk: Jyoti Perez RDCS Exam Type: ECHOCARDIOGRAM COMPLETE Study Info Indications - Abnormal electrocardiogram [ECG] [EKG] Referring Physician: [id number], POLLARD; [id number] BMI: 22.71 kg/m2 Summary 1. Normal LV [...] mmHg MV VTI [address] [facility] 850 cm/s2 MV PHT 90 ms MV [...] Velocity 6.3 cm/ (more content not included)... [facility] Glucose (Bld) [Mass/Vol]on 12-28-2023 Glucose [Mass/Vol] mg/dL Critically high 65 - 99 mg/d L [facility] Interpretation and review of laboratory results Abnormal [facility] Critical result acted upon time of test. Test performed at bedside. [facility] Glucose [Mass/Vol] mg/dL Critically high 65 - 99 mg/d L [facility] Interpretation and review of laboratory results Abnormal [facility] Critical result acted upon time of test. Test performed at bedside. [facility] Glucose [Mass/Vol] 369 mg/dL High 65 - 99 mg/dL [facility] Interpretation and review of laboratory results Abnormal [facility] Glucose [Mass/Vol] 381 mg/dL High 65 - 99 mg/dL [facility] Interpretation and review of laboratory results Abnormal [facility] Glucose [Mass/Vol] 385 mg/dL High 65 - 99 mg/dL [facility] Interpretation and review of laboratory results Abnormal [facility] Glucose [Mass/Vol] 498 mg/dL Critically high 65 - 99 mg/d L [facility] Interpretation and review of laboratory results Abnormal [facility] Critical result acted upon time of test. Test performed at bedside. [facility] Glucose [Mass/Vol] 279 mg/dL High 65 - 99 mg/dL [facility] Interpretation and review of laboratory results Abnormal [facility] HEMOGLOBIN A1Con 10-27-2024 Glucose [Mass/Vol] 237 mg/dL High 74-114 [facility] Comment on above: Performed By: #### 4 8202 ####MH [address] [address] Moody Martinez M.D. [id number] HbA1c (Bld) [Mass fraction] 9.9 % High 4.2-5.[address] [facility] Comment on above: Performed By: #### 4 8202 ####[facility] LAB [address] [address] Moody Martinez M.D. [id number] Glucose [Mass/Vol] 232 mg/dL High 74-114 [facility] Comment on above: Performed By: #### 4 8202 ####[facility] LAB [address] [address] Moody Martinez M.D. [id number] HbA1c (Bld) [Mass fraction] 9.7 % High 4.2-5.[address] [facility] Comment on above: Performed By: #### 4 8202 #### LAB [address] [address] Moody Martinez M.D. [id number] HbA1c (Bld) [Mass fraction]o n 10-27-2024 Average glucose Estimated from glycated hemoglobin (Bld) [Mass/Vol] 232 mg/dL High 74 - 114 mg/dL [facility] Interpretation and review of laboratory results Abnormal [facility] Hemoglobin A1con 10-27-2024 HbA1c (Bld) [Mass fraction] 9.7 % High 4.2 - 5.6 % [facility] INR Coag (PPP) [Relative concha e]on 10-27-2024 Interpretation and review of laboratory results Normal [facility] PT Coag (PPP) [Time] 14.3 s [facility] During the induction phase of oral anticoagulation, the INR may not reflect the anticoagulation status of the patient. Therapeutic ranges for INR's are: Most clinical situations: INR 2.0-3.0 Mechanical Prosthetic Valve: INR 2.5-3.5 Critical: INR >5.0 [facility] LACTIC ACID, PLASMAon 2023 LACTIC ACID, PLASMA 1.6 mmol/L Normal 0.6-2.0 [facility] Comment on above: Performed By: #### 4 6932 #### [facility] LAB [address] [address] Moody Martinez M.D. [id number] LIPASEon 10-27-2024 Lipase [Catalytic activity/Vol] 56 U/L Normal 15-[address] [facility] Comment on above: Performed By: #### 4 6086 #### LAB [address] [address] Moody Martinez M.D. [id number] Lactate [Moles/Vol]on 2023 Interpretation and review of laboratory results Normal [facility] Lactic Acid, Plasmaon 2023 Lactate [Moles/Vol] 1.6 mmol/L 0.6 - 2. 0 mmol/L [facility] Lipaseon 10-27-2024 Lipase [Catalytic activity/Vol] 56 U/L 15 - 65 U/L [facility] MAGNESIUM LEVELon 10-27-2024 Magnesium [Mass/Vol] 2.6 mg/dL High 1.6-2.4 [facility] Comment on above: Performed By: #### 4 6109 ####[facility] LAB [address] [address] Moody Martinez M.D. [id number] Magnesium [Mass/Vol] 2.5 mg/dL High 1.6-2.4 [facility] Comment on above: Performed By: #### 4 6109 #### LAB [address] [address] Moody Martinez M.D. [id number] Magnesium Levelon 10-27-2024 Magnesium [Mass/Vol] 2.5 mg/dL High 1.6 - 2 .4 mg/dL [facility] No Panel InformationOrdered By: Ya Izaguirre on 10-27-2024 Interpretation and review of laboratory results Abnormal [facility] No Panel Informationon 10-27 Interpretation and review of laboratory results Normal [facility] PHOSPHORUSon 10-27-2024 Phosphate [Mass/Vol] 4.4 mg/dL High 2.3-3.7 [facility] Comment on above: Performed By: #### 4 6299 #### LAB [address] [address] Moody Martinez M.D. [id number] Phosphate [Mass/Vol] 5.2 mg/dL High 2.3-3.7 [facility] Comment on above: Performed By: #### 4 4014 #### MH LAB [address] [address] Moody Martinez M.D. [id number] POC ARTERIAL BLOOD GAS PANEL -AYUSH Lyons 10-27-2024 [id number] 19.6 mm Hg Normal [facility] Comment on above: Performed By: #### 4 8716 ####[facility] LAB [address] [address] Moody Martinez M.D. [id number] BASE EXCESS, ARTERIAL -7.5 Low -2.0-2.0 [facility] Comment on above: Performed By: #### 4 8716 ####[facility] LAB [address] [address] Moody Martinez M.D. [id number] FIO2 [address] [facility] Comment on above: Performed By: #### 4 8716 #### LAB [address] [address] Moody Martinez M.D. [id number] HCO3 (Bld) [Moles/Vol] 17.5 mmol/L Low 22.0-26.0 [facility] Comment on above: Performed By: #### 4 8716 ####[facility] LAB [address] [address] Moody Martinez M.D. [id number] Hematocrit (Bld) [Volume fraction] 30.0 % Low 41.0-53.[address] [facility] Comment on above: Performed By: #### 4 8716 ####[facility] LAB [address] [address] Moody Martinez M.D. [id number] Hemoglobin (Bld) [Mass/Vol] 9.8 g/dL Low 13.5-17.5 [facility] Comment on above: Performed By: #### 4 8716 ####[facility] LAB [address] [address] Moody Martinez M.D. [id number] Oxygen saturation in Blood 97.3 % Normal 92.0-99.[address] [facility] Comment on above: Performed By: #### 4 8716 #### LAB [address] [address] Moody Martinez M.D. [id number] PCO2 ARTERIAL 32.9 mm Hg Low 35.0-45.[address] [facility] Comment on above: Performed By: #### 4 8716 #### LAB [address] [address] Moody Martinez M.D. [id number] PH ARTERIAL 7.33 Low 7.35-7.[address] [facility] Comment on above: Performed By: #### 4 8716 #### LAB [address] [address] Moody Martinez M.D. [id number] PO2 ARTERIAL 85 mm Hg Normal 75-[address] [facility] Comment on above: Performed By: #### 4 8716 #### LAB [address] [address] Moody Martinez M.D. [id number] SPECIMEN SOURCE RADIANCE Radial, left Normal [facility] Comment on above: Performed By: #### 4 8716 #### LAB [address] [address] Moody Martinez M.D. [id number] POC Arterial Blood Gas Panel [facility] 10-27-2024 Alveolar-arterial oxygen Partial pressure difference 19.6 mm Hg [facility] Base excess Calc (Bld) [Moles/Vol] -7.5000 mmol/L Low -2.0 - 2.0 [facility] CO2 (Bld) [Partial pressure] 32.9 mm[Hg] Low [facility] Hematocrit (BldA) [Volume fraction] 30 % Low 41.0 - 53.0 % [facility] Inhaled oxygen concentration 21 % [facility] Interpretation and review of laboratory results Abnormal [facility] Oxygen (Bld) [Partial pressure] 85 mm[Hg] [facility] pH (Bld) 7.33 [pH] Low 7.35 - 7.45 [facility] Specimen source Nom (Unsp spec) Radial, left [facility] POC GLUCOSE - [facility] 024 Glucose [Mass/Vol] 443 mg/dL Off scale high 65-99 [facility] Comment on above: Order Comment: Criti christian result acted upon time of test. Test performed at bedside. Performed By: #### 4 6916 ####[facility] LAB [address] [address] Moody Martinez M.D. [id number] POC GLUCOSE > Off scale [address] Comment on above: Order Comment: Criti christian result acted upon time of test. Test performed at bedside. Performed By: #### 4 6976 ####[facility] LAB [address] [address] Moody Martinez M.D. [id number] POC GLUCOSE > Off scale [address] Comment on above: Order Comment: Criti christian result acted upon time of test. Test performed at bedside. Performed By: #### 4 6948 #### LAB [address] [address] Moody Martinez M.D. [id number] POC GLUCOSE > Off scale [address] Comment on above: Order Comment: Criti christian result acted upon time of test. Test performed at bedside. Performed By: #### 4 6918 ####[facility] LAB [address] [address] Moody Martinez M.D. [id number] Glucose [Mass/Vol] 369 mg/dL [address] Comment on above: Performed By: #### 4 6946 #### LAB [address] [address] Moody Martinez M.D. [id number] Glucose [Mass/Vol] 381 mg/dL [address] Comment on above: Performed By: #### 4 1116 ####[facility] LAB [address] [address] Moody Martinez M.D. [id number] Glucose [Mass/Vol] 385 mg/dL [address] Comment on above: Performed By: #### 4 1902 #### LAB [address] [address] Moody Martinez M.D. [id number] Glucose [Mass/Vol] 498 mg/dL Off scale high 65-99 [facility] Comment on above: Order Comment: Criti christian result acted upon time of test. Test performed at bedside. Performed By: #### 4 6932 #### LAB [address] [address] Moody Martinez M.D. [id number] Glucose [Mass/Vol] 279 mg/dL High 65-99 [facility] Comment on above: Performed By: #### L [id number] #### [facility] [address] [address] Moody Martinez M.D. [id number] POTASSIUM LEVELon 10-27-2024 Potassium [Moles/Vol] 3.4 mmol/L Low 3.5-5.1 [facility] Comment on above: Performed By: #### 4 6351 ####[facility] [address] [address] Moody Martinez M.D. [id number] PREALBUMINon 10-27-2024 Prealbumin [Mass/Vol] 15.9 mg/dL Low 20.0-40.0 [facility] Comment on above: Performed By: #### 4 4014 #### LAB [address] [address] Moody Martinez M.D. [id number] PT/INRon 10-27-2024 INR Coag (PPP) [Relative time] 1.1 {INR} 0.8 - 1.1 [facility] INR Coag (PPP) [Relative time] 1.1 {INR} Normal 0.8-1.[address] [facility] Comment on above: Order Comment: Janet good the induction phase of oral anticoagulation, the INR may not reflect the anticoagulation status of the patient. Therapeutic ranges for INR's are:Most clinical situations: INR 2.0-3.0Mechanical Prosthetic Valve: INR 2.5-3.5Critical: INR >5.0 Performed By: #### 4 6973 #### LAB [address] [address] Moody Martinez M.D. [id number] PT Coag (PPP) [Time] 14.3 s Normal 11.8-14.3 [facility] Comment on above: Order Comment: Janet good the induction phase of oral anticoagulation, the INR may not reflect the anticoagulation status of the patient. Therapeutic ranges for INR's are:Most clinical situations: INR 2.0-3.0Mechanical Prosthetic Valve: INR 2.5-3.5Critical: INR >5.0 Performed By: #### 4 6932 #### LAB [address] [place], [place] [address] Moody Martinez M.D. [id number] Phosphoruson 10-27-2024 Phosphate [Mass/Vol] 5.2 mg/dL High 2.3 - 3 .7 mg/dL [facility] Potassium Levelon 10-27-2024 Potassium [Moles/Vol] 3.4 mmol/L Low 3.5 - 5.1 mmol/L [facility] Potassium [Moles/Vol]on 10-02 Interpretation and review of laboratory results Abnormal [facility] Prealbuminon 10-27-2024 Prealbumin [Mass/Vol] 15.9 mg/dL Low 20.0 - 40.0 mg/dL [facility] Prealbumin [Mass/Vol]on 10-02 Interpretation and review of laboratory results Abnormal [facility] Segmental Doppler Lower Extr emity Arterialon 10-27-2024 Patient Info Name: ENOC ARMANDO Age: 78 years : 1945 Gender: Male Exam Date: 10/27/2024 9:50 AM Patient Status: Outpatient Sales Management Intern: Ya Jacob Referring Physician: ZOILA POLLARD; Indications I73.9 - Peripheral vascular disease, unspecified Procedure Description 17238 Limited bilateral noninvasive physiologic studies of upper [...] Nguyen DO on 10/27/2024 01:14 PM FUJI SYNAPSE CV Flo Abdi III, DO - 10/27/2024 Patient Info Name: ENOC ARMANDO Age: 78 years : 1945 Gender: Male Exam Date: 10/27/2024 9:50 AM Patient Status: Outpatient Sales Management Intern: Ya Jacob Referring Physician: ZOILA POLLARD; Indications I73.9 - Peripheral vascular disease, unspecified Procedure Description 56824 Limited bilateral noninvasive physiologic studies of upper [...] JO-ANN Nguyen DO on 10/27/2024 01:14 PM [facility] T4, Christina 10-27-2024 Free T4 [Mass/Vol] 1.3 ng/dL Normal 0.7-1.7 [facility] Comment on above: Performed By: #### 4 6567 #### LAB [address] [address] Moody Martinez M.D. [id number] T4, Freeon 10-27-2024 Free T4 [Mass/Vol] 1.3 ng/dL 0.7 - 1.7 ng/dL [facility] TEG PLATELET MAPPING ([facility])on 10-27-2024 (AA-%AGGREGATION) AA PERCENT AGGREGATION 12.1 % Low 89.0-100.[address] [facility] Comment on above: Performed By: #### L [id number] ####[facility] LAB [address] [address] Moody Martinez M.D. [id number] (AA-%INHIBITION) AA PERCENT INHIBITION 87.9 % High 0.0-11.[address] [facility] Comment on above: Performed By: #### L [id number] ####[facility] [address] [address] Moody Martinez M.D. [id number] (AA-MA) AA MAXIMUM AMPLITUDE 14.7 mm Low 51.0-71.[address] [facility] Comment on above: Performed By: #### L [id number] ####[facility] LAB [address] [address] Moody Martinez M.D. [id number] (ACTF-MA) ACTIVATOR F MAXIMUM AMPLITUDE 7.8 mm Normal 2.0-19.[address] [facility] Comment on above: Performed By: #### L [id number] ####[facility] LAB [address] [address] Moody Martinez M.D. [id number] (ADP-%AGGREGATION) ADP PERCENT AGGREGATION 61.2 % Low 83.0-100.[address] [facility] Comment on above: Performed By: #### L [id number] ####[facility] LAB [address] [address] Moody Martinez M.D. [id number] (ADP-%INHIBITION) ADP PERCENT INHIBITION 38.8 % High 0.0-17.[address] [facility] Comment on above: Performed By: #### L [id number] #### LAB [address] [address] Moody Martinez M.D. [id number] (ADP-MA) ADP MAXIMUM AMPLITUDE 42.7 mm Low 45.0-69.[address] [facility] Comment on above: Performed By: #### L [id number] ####[facility] LAB [address] [address] Moody Martinez M.D. [id number] (HKH-MA) KAOLIN WITH HEPARINASE MAXIMUM AMPLITUDE 64.8 mm Normal 53.0-68.[address] [facility] Comment on above: Performed By: #### L [id number] #### LAB [address] [address] Moody Martinez M.D. [id number] TEG Platelet Mapping (Cardia c)on 10-27-2024 (AA-%Aggregation) AA Percent Aggregation 12.1 % Low 89.0 - 100.0 % [facility] (AA-%Inhibition) AA Percent Inhibition 87.9 % High 0.0 - 11.0 % [facility] (ADP-% Aggregation) ADP Percent Aggregation 61.2 % Low 83.0 - 100.0 % [facility] (ADP-%Inhibition) ADP PERCENT INHIBITION 38.8 % High 0.0 - 17.0 % [facility] Interpretation and review of laboratory results Abnormal [facility] Maximum amplitude AA induced Resonance TEG (Bld) [Length] 14.7 mm Low 51.0 - 71.0 mm [facility] Maximum amplitude activator F induced Resonance TEG (Bld) [Length] 7.8 mm 2.0 - 19.0 mm [facility] Maximum amplitude ADP induced Resonance TEG (Bld) [Length] 42.7 mm Low 45.0 - 69.0 mm [facility] Maximum amplitude kaolin induced after addition of heparinase Resonance TEG (Bld) [Length] 64.8 mm 53.0 - 68.0 mm [facility] TSHon 10-27-2024 TSH Qn 0.48 m[IU]/L Normal 0.27-4.[address] [facility] Comment on above: Performed By: #### 4 6932 #### LAB [address] [address] Moody Martinez M.D. [id number] TSH DL <= 0.005 mIU/L Qnon 1 12-28-2023 TSH Qn 0.48 m[IU]/L [facility] TYPE AND SCREENon 10-27-2024 TYPE AND SCREEN ABORH: A Positive AB SCREEN: Negative EXPIRATION DATE: 10/30/2024 23:59 EST Normal [facility] URINALYSISon 10-27-2024 BACTERIA, URINE Rare Abnormal None Seen 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 [id number] BLOOD, URINE Negative Normal Negative 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 [id number] Clarity (U) Clear Normal Clear 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 [id number] Color (U) Colorless Normal Colorless, Yellow 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 [id number] Glucose Ql (U) 150 mg/dL Abnormal Negative, >=[address] 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 [id number] Hyaline casts LM Ql (Urine sed) 0-2 Normal 0-[address] 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 [id number] Ketones Ql (U) Negative Normal Negative 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 [id number] Leukocyte esterase Test strip Ql (U) Negative Normal Negative 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 [id number] MUCUS, URINE Rare Normal None Seen, Rare 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 [id number] NITRITE, URINE Negative Normal Negative 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 [id number] pH (U) 5.0 [pH] Normal 5.0-7.[address] 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 [id number] PROTEIN, URINE Negative Normal Negative 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 [id number] RBC LM.HPF (Urine sed) [#/Area] 1 /[HPF] Normal 0-[address] 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 [id number] Specific gravity (U) [Rel density] 1.017 Normal 1.005-1.[address] 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 [id number] WBC LM.HPF (Urine sed) [#/Area] 1 /[HPF] Normal 0-[address] 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 [id number] URINE AEROBIC CULTUREon 10-02 URINE AEROBIC CULTURE URINE CULTURE No Growth (<1,000 CFU/mL) Normal [facility] Comment on above: Order Comment: If PO SITIVE, send for sensitivities per cardiac surgeon Performed By: #### 4 4053 ####[facility] [address] [place] [address] Jose Cisse M.D. [id number] US DOPPLER CAROTIDon 024 US DOPPLER CAROTID Patient Info Name: ENOC ARMANDO Age: 78 years : 1945 Gender: Male Exam Date: 10/27/2024 10:32 AM Patient Status: Outpatient Sales Management Intern: Lori Fagan RDMS (), RVS Referring Physician: MARIE Arriaga; Indications Z01.810 - Encounter for preprocedural cardiovascular examination I65.23 - Occlusion and stenosis of bilateral carotid arteries Procedure Description 62510 Duplex examination using B-mode, color and spectral [...] (more content not included)... Normal [facility] Comment on above: Order Comment: Dr. Sudha Parker to read US DOPPLER SEGMENTAL ARTERIA L LEGS BILATERALon 10-27-2024 US DOPPLER SEGMENTAL ARTERIAL LEGS BILATERAL Patient Info Name: ENOC ARMANDO Age: 78 years : 1945 Gender: Male Exam Date: 10/27/2024 9:50 AM Patient Status: Outpatient Sales Management Intern: Ya Jacob Referring Physician: ZOILA POLLARD; Indications I73.9 - Peripheral vascular disease, unspecified Procedure Description 11902 Limited bilateral noninvasive physiologic studies of upper [...] JO-ANN Nguyen DO on 10/27/2024 01:14 PM [facility] RADIAL ARTERY MAPPING KARIN [facility] 10-27-2024 US RADIAL ARTERY MAPPING BILATERAL Patient Info Name: ENOC ARMANDO Age: 78 years : 1945 Gender: Male Exam Date: 10/27/2024 11:23 AM Patient Status: Outpatient Sales Management Intern: Lori Fagan RDMS (AB), RVS Referring Physician: MARIE Arriaga; Indications - possible radial artery harvest Z01.810 - Encounter for preprocedural cardiovascular examination Procedure Description 63902 Duplex scan of upper extremity arteries or [...] Kristy Parker MD on 10/27/2024 11:50 AM [facility] Radial Artery Mapping Karin bone 10-27-2024 Patient Info Name: ENOC ARMANDO Age: 78 years : 1945 Gender: Male Exam Date: 10/27/2024 11:23 AM Patient Status: Outpatient Sales Management Intern: Lori Fagan RDMS (AB), RVS Referring Physician: MARIE Arriaga; Indications - possible radial artery harvest Z01.810 - Encounter for preprocedural cardiovascular examination Procedure Description 43572 Duplex scan of upper extremity arteries or [...] Kristy Parker MD on 10/27/2024 11:50 AM [email or web address] CV Kristy Parker MD - 10/27/2024 Patient Info Name: ENOC ARMANDO Age: 78 years : 1945 Gender: Male Exam Date: 10/27/2024 11:23 AM Patient Status: Outpatient Sales Management Intern: Lori Fagan, MARYJANE (AB), RVS Referring Physician: MARIE Arriaga; Indications - possible radial artery harvest Z01.810 - Encounter for preprocedural cardiovascular examination Procedure Description 99574 Duplex scan of upper extremity arteries or [...] Kristy Parker MD on 10/27/2024 11:50 AM [facility] SAPHENOUS VEIN MAPon - SAPHENOUS VEIN MAP Patient Info Name: ENOC ARMANDO Age: 78 years : 1945 Gender: Male Exam Date: 10/27/2024 11:13 AM Patient Status: Outpatient Sales Management Intern: Lori Fagan RDMS (AB), RVS Referring Physician: MARIE Arriaga; Indications - GSV harvest Z01.810 - Encounter for preprocedural cardiovascular examination Procedure Description 78259 Duplex examination using B-mode, color and spectral [...] Kristy Parker MD on 10/27/2024 11:57 AM Normal [facility] Ultrasound Saphenous vein ma ppingon 10-27-2024 Patient Info Name: ENOC ARMANDO Age: 78 years : 1945 Gender: Male Exam Date: 10/27/2024 11:13 AM Patient Status: Outpatient Sales Management Intern: Lori Fagan RDMS (AB), RVS Referring Physician: MARIE Arriaga; Indications - GSV harvest Z01.810 - Encounter for preprocedural cardiovascular examination Procedure Description 97252 Duplex examination using B-mode, color and spectral [...] on 10/27/2024 11:57 AM FUJI SYNAPSE CV , Kristy Gardiner MD - 10/27/2024 Patient Info Name: ENOC ARMANDO Age: 78 years : 1945 Gender: Male Exam Date: 10/27/2024 11:13 AM Patient Status: Outpatient Sales Management Intern: Lori Fagan RDMS (AB), RVS Referring Physician: MARIE Arriaga; Indications - GSV harvest Z01.810 - Encounter for preprocedural cardiovascular examination Procedure Description 21578 Duplex examination using B-mode, color and spectral [...] Kristy Parker MD on 10/27/2024 11:57 AM [facility] Ultrasound doppler carotidon 10-27-2024 Patient Info Name: ENOC ARMANDO Age: 78 years : 1945 Gender: Male Exam Date: 10/27/2024 10:32 AM Patient Status: Outpatient Sales Management Intern: Lori Fagan RDMS (AB), RVS Referring Physician: MARIE Arriaga; Indications Z01.810 - Encounter for preprocedural cardiovascular examination I65.23 - Occlusion and stenosis of bilateral carotid arteries Procedure Description [id number] Duplex examination using B-mode, color and spectral [...] Date: 10/27/2024 10:32 AM Patient Status: Outpatient Sales Management Intern: Lori Fagan RDMS (AB), RVS Referring Physician: MARIE Arriaga; Indications Z01.810 - Encounter for preprocedural cardiovascular examination I65.23 - Occlusion and stenosis of bilateral carotid arteries Procedure Description [id number] Duplex examination using B-mode, color and spectral [...] Patient has a (more content not included)... [facility] Urinalysison 10-27-2024 Bacteria Auto Ql (U) Rare Abnormal None Se en /hpf [facility] Bilirubin Ql (U) Negative Negative [facility] Clarity Refractometry automated (U) Clear Clear [facility] Color (U) Colorless Colorless, Yellow [facility] Epithelial cells.squamous Auto (Urine sed) [#/Area] [facility] alth Glucose Auto test strip (U) [Mass/Vol] 150 mg/dL Abnormal Negative, >=1000 [facility] Hemoglobin Auto test strip Ql (U) Negative Negative [facility] Hyaline casts Auto (Urine sed) [#/Area] 0-2 [facility] Interpretation and review of laboratory results Abnormal [facility] Ketones (U) [Mass/Vol] Negative Negat frank mg/dL [facility] Leukocyte esterase Auto test strip Ql (U) Negative Negative [facility] Mucus Auto (Urine sed) [#/Area] Rare None Seen, Rare /lpf [facility] Nitrite Auto test strip Ql (U) Negative Negative [facility] pH (U) 5 [pH] 5.0 - 7.0 [facility] Protein (U) [Mass/Vol] Negative Negat frank mg/dL [facility] RBC Auto (Urine sed) [#/Area] 1 [facility] Specific gravity (U) [Rel density] 1.017 1.005 - 1.025 [facility] Urobilinogen (U) [Mass/Vol] mg/dL NINF - 2.0 mg/dL [facility] WBC Auto (Urine sed) [#/Area] 1 [facility] Microscopic examination is performed on all urinalysis samples and only positive findings are reported. The test for blood on the chemical analytic portion of urinalysis may also be positive due to hemoglobinuria and myoglobinuria and if red blood cells are present they are quantified by microscopic examination. [facility] XR CHEST AP/PA AND LATon XR CHEST [...] 2024 3:01:09 PM EST Normal [facility] Comment on above: Order Comment: Injur y/Trauma or Illness?:Illness/OtherHow long have you had these symptoms (acute/chronic)?:AcuteReason for exam?:pre opHistory of cancer?:.Surgeries, chemotherapy, or radiation?:cardiac catheterizationType of Exam?:InitialAdditional signs and symptoms?:. XR Chest PA and Lateral and AP lateral-decubituson 10-27-2024 Mild bilateral lower lung atelectasis. JAR/trn Workstation ID: [id number] [employer] RIS EXAMINATION: XR CHEST AP/PA AND LAT [...] atelectasis. No pneumothorax or sizable pleural effusion. [employer] [facility] Kahlil Varghese, DO - 10/27/2024 EXAMINATION: XR [...] lower lung atelectasis. JAR/trn Workstation ID: [id number] [facility] Radiology Study observation (narrative) [facility] th XR Chest PA and Lateral and AP lateral-decubitusOrdered By: Kahlil Varghese on 10-27-2024 [facility] Work Phone: aPTT Coag (Bld) [Time]on Interpretation and review of laboratory results Abnormal [facility] Therapeutic range for APTT's is 68 - 104 seconds [facility] BASIC METABOLIC PANELon 10-01 Calcium [Mass/Vol] 8.9 mg/dL Normal 8.6-10.3 [facility] Comment on above: Order Comment: FASTI NG:UNKNOWN FASTING: UNKNOWN Performed By: #### 6 399, 27077 #### [facility] [address], [address] [place] [address] Cad Drafter: Jadon Velez MD Chloride [Moles/Vol] 106 mmol/L Normal 98-110 [facility] Comment on above: Order Comment: FASTI NG:UNKNOWN FASTING: UNKNOWN Performed By: #### 6 399, 11165 #### [facility] [address], [address] [place] [address] Cad Drafter: Jadon Velez MD CO2 [Moles/Vol] 22 mmol/L Normal 20-32 [facility] Comment on above: Order Comment: FASTI NG:UNKNOWN FASTING: UNKNOWN Performed By: #### 6 399, 51135 #### [facility] [address], [address] [place] [address] Cad Drafter: Jadon Velez MD Creatinine [Mass/Vol] 2.36 mg/dL High 0.70-1.22 [facility] Comment on above: Order Comment: FASTI NG:UNKNOWN FASTING: UNKNOWN Performed By: #### 6 399, 93422 #### [facility] [place] [address] Cad Drafter: Jadon Velez MD GFR/1.73 sq M.predicted among non-blacks MDRD (S/P/Bld) [Vol rate/Area] 27 mL/min/{1.73_m2} Low > OR = 60 [facility] Comment on above: Order Comment: FASTI NG:UNKNOWN FASTING: UNKNOWN Performed By: #### 6 399, 62145 #### [facility] [place] [address] Cad Drafter: Jadon Velez MD Glucose [Mass/Vol] 316 mg/dL High 65-99 [facility] Comment on above: Order Comment: FASTI NG:UNKNOWN FASTING: UNKNOWN Result Comment: Fasting reference interval For someone without known diabetes, a glucose value >125 mg/dL indicates that they may have diabetes and this should be confirmed with a follow-up test. Performed By: #### 6 399, 52000 #### [facility] [place] [address] Cad Drafter: Jadon Velez MD Potassium [Moles/Vol] 5.6 mmol/L High 3.5-5.3 [facility] [employer] Comment on above: Order Comment: FASTI NG:UNKNOWN FASTING: UNKNOWN Performed By: #### 6 399, 30452 #### [facility] [address], [address] [place] [address] Cad Drafter: Jadon Velez MD Sodium [Moles/Vol] 137 mmol/L Normal 135-146 [facility] Comment on above: Order Comment: FASTI NG:UNKNOWN FASTING: UNKNOWN Performed By: #### 6 399, 03914 #### [facility] [address], [address] [place] [address] Cad Drafter: Jadon Velez MD Urea nitrogen [Mass/Vol] 66 mg/dL High 7-25 [facility] Comment on above: Order Comment: FASTI NG:UNKNOWN FASTING: UNKNOWN Performed By: #### 6 399, 55780 #### [facility] [address], [address] [place] [address] Cad Drafter: Jadon Velez MD Urea nitrogen/Creatinine [Mass ratio] 28 mg/mg High 6-22 [facility] Comment on above: Order Comment: FASTI NG:UNKNOWN FASTING: UNKNOWN Performed By: #### 6 399, 17639 #### [facility] of [address], [address] [place] [address] Cad Drafter: Jadon Velez MD CBC (INCLUDES DIFF/PLT)on Basophils (Bld) [#/Vol] 0.213 10*3/uL High 0-200 [facility] Comment on above: Performed By: #### 6 399, 85074 #### [facility] of [address], [address] [place] [address] Cad Drafter: Jadon Velez MD Basophils/100 WBC (Bld) 2.6 % Normal [facility] Comment on above: Performed By: #### 6 399, 19947 #### [facility] of [address], [address] [place] [address] Cad Drafter: Jadon Velez MD Eosinophils (Bld) [#/Vol] 0.5 10*3/uL Normal 15-500 [facility] Comment on above: Performed By: #### 6 399, 28509 #### [facility] of [address], [address] [place] [address] Cad Drafter: Jadon Velez MD Eosinophils/100 WBC (Bld) 6.1 % Normal [facility] Comment on above: Performed By: #### 6 399, 70460 #### [facility] of [place] [address] Cad Drafter: Jadon Velez MD Erythrocyte distribution width (RBC) [Ratio] 12.9 % Normal 11.0-15.0 [facility] Comment on above: Performed By: #### 6 399, 20246 #### [facility] of [place] [address] Cad Drafter: Jadon Velez MD Hematocrit (Bld) [Volume fraction] 33.8 % Low 38.5-50.0 [facility] Comment on above: Performed By: #### 6 399, 93462 #### [facility] of [address], [address] [place] [address] Cad Drafter: Jadon Velez MD Hemoglobin (Bld) [Mass/Vol] 10.9 g/dL Low 13.2-17.1 [facility] Comment on above: Performed By: #### 6 399, 45255 #### [facility] of [address], [address] [place] [address] Cad Drafter: Jadon Velez MD Lymphocytes (Bld) [#/Vol] 2.28 10*3/uL Normal 850-3900 [facility] Comment on above: Performed By: #### 6 399, 44473 #### [facility] of [address], [address] [place] [address] Cad Drafter: Jadon Velez MD Lymphocytes/100 WBC (Bld) 27.8 % Normal [facility] Comment on above: Performed By: #### 6 399, 96877 #### [facility] [place] [address] Cad Drafter: Jadon Velez MD MCH (RBC) [Entitic mass] 30.9 pg Normal 27.0-33.0 [facility] Comment on above: Performed By: #### 6 399, 82552 #### [facility] of [place] [address] Cad Drafter: Jadon Velez MD MCHC (RBC) [Mass/Vol] 32.2 [...] clinical condition. Performed By: #### 6 399, 06131 #### [facility] of [place] [address] Cad Drafter: Jadon Velez MD MCV (RBC) [Entitic vol] 95.8 fL Normal 80.0-100.0 [facility] Comment on above: Performed By: #### 6 399, 61753 #### [facility] of [address], [address] [place] [address] Cad Drafter: Jadon Velez MD Monocytes (Bld) [#/Vol] 0.631 10*3/uL Normal 200-950 [facility] Comment on above: Performed By: #### 6 399, 57755 #### [facility] [place] [address] Cad Drafter: Jadon Velez MD Monocytes/100 WBC (Bld) 7.7 % Normal [facility] Comment on above: Performed By: #### 6 399, 69838 #### [facility] [place] [address] Cad Drafter: Jadon Velez MD Neutrophils (Bld) [#/Vol] 4.576 10*3/uL Normal 1500-78 00 [facility] Comment on above: Performed By: #### 6 399, 19505 #### [facility] [place] [address] Cad Drafter: Jadon Velez MD Neutrophils/100 WBC (Bld) 55.8 % Normal [facility] Comment on above: Performed By: #### 6 399, 36440 #### [facility] [place] [address] Cad Drafter: Jadon Velez MD Platelet mean volume (Bld) [Entitic vol] 11.5 fL Normal 7.5-12.5 [facility] Comment on above: Performed By: #### 6 399, 59696 #### [facility] [place] [address] Cad Drafter: Jadon Velez MD Platelets (Bld) [#/Vol] 289 10*3/uL Normal 140-400 [facility] Comment on above: Performed By: #### 6 399, 83425 #### [facility] [place] [address] Cad Drafter: Jadon Velez MD RBC (Bld) [#/Vol] 3.53 10*6/uL Low 4.20-5.80 [facility] Comment on above: Performed By: #### 6 399, 15142 #### [facility] [address], [address] [place] [address] Cad Drafter: Jadon Velez MD WBC (Bld) [#/Vol] 8.2 10*3/uL Normal 3.8-10.8 [facility] Comment on above: Performed By: #### 6 399, 65553 #### [facility] [address], [address] [place] [address] Cad Drafter: Jadon Velez MD Lipid Profileon 09-21-2024 Cholesterol [Mass/Vol] 148 mg/dL Normal 200 [facility] Comment on above: Result Comment: <200 mg/dL Desirable 200-240 mg/dL Borderline >240 mg/dL High Risk Performed By: #### L 500.4100 ####[facility] [address] [place], [address] Cholesterol in HDL [Mass/Vol] 49 mg/dL Normal [facility] Comment on above: Result Comment: The drugs N-Acetylcysteine and Metamizole may falselydepress this assay. Reference Range HDL <40 mg/dL Low HDL Cholesterol HDL >or= 60 mg/dL High HDL Cholesterol Performed By: #### L 500.4100 ####[facility] [address] [place], [address] Cholesterol in LDL [Mass/Vol] 87 mg/dL Normal 0-130 [facility] Comment on above: Performed By: #### L 500.4100 ####[facility] [address] [place], [address] Cholesterol in VLDL [Mass/Vol] 12 mg/dL Normal 5-40 [facility] Comment on above: Performed By: #### L 500.4100 ####[facility] [address] [place], [address] Triglyceride [Mass/Vol] 58 mg/dL Normal [facility] Comment on above: Result Comment: The drugs N-Acetylcysteine and Metamizole may falselydepress this assay.Serum Triglycerides Reference Interval Normal <150 mg/dL Borderline high 150 - 199 mg/dL High 200 - 499 mg/dL Very High > or = 500 mg/dL Performed By: #### L 500.4100 ####[facility] [address] [place], [address] Basic Metabolic Profile (BMP )on 09-15-2024 BUN Normal 7-18 [facility] Comment on above: Result Comment: Canc elled via OM: Order cancelled - Patient discharged Performed By: #### L 500.2500, L100.0100 ####[facility] [address] [place], [address] BUN/CRE Normal 10-20 [facility] Comment on above: Result Comment: Canc elled via OM: Order cancelled - Patient discharged Performed By: #### L 500.2500, L100.0100 ####[facility] [address] [place], [address] CA,Total Normal 8.5-10.1 [facility] Comment on above: Result Comment: Canc elled via OM: Order cancelled - Patient discharged Performed By: #### L 500.2500, L100.0100 ####[facility] [address] [place], [address] CL Normal 98-107 [facility] Comment on above: Result Comment: Canc elled via OM: Order cancelled - Patient discharged Performed By: #### L 500.2500, L100.0100 ####[facility] [address] [place], [address] CO2 Normal 21.0-32.0 [facility] Comment on above: Result Comment: Canc elled via OM: Order cancelled - Patient discharged Performed By: #### L 500.2500, L100.0100 ####[facility] [address] [place], [address] CREAT,SERUM Normal 0.70-1.30 [facility] Comment on above: Result Comment: Canc elled via OM: Order cancelled - Patient discharged Performed By: #### L 500.2500, L100.0100 ####[facility] [address] [place], [address] EST GFR Normal >60 [facility] Comment on above: Result Comment: Canc elled via OM: Order cancelled - Patient discharged Performed By: #### L 500.2500, L100.0100 ####[facility] [address] [place], [address] EST GFR - AA Normal >60 [facility] Comment on above: Result Comment: Canc elled via OM: Order cancelled - Patient discharged Performed By: #### L 500.2500, L100.0100 ####[facility] [address] [place], [address] GAP Normal 5-15 [facility] Comment on above: Result Comment: Canc elled via OM: Order cancelled - Patient discharged Performed By: #### L 500.2500, L100.0100 ####[facility] [address] [place], [address] GLU Normal 74-106 [facility] Comment on above: Result Comment: Canc elled via OM: Order cancelled - Patient discharged Performed By: #### L 500.2500, L100.0100 ####[facility] [address] [place], [address] Potassium Normal 3.5-5.1 [facility] Comment on above: Result Comment: Canc elled via OM: Order cancelled - Patient discharged Performed By: #### L 500.2500, L100.0100 ####[facility] [address] [place], [address] Basic Metabolic Profile (BMP) Normal 136-145 [facility] Comment on above: Result Comment: Canc elled via OM: Order cancelled - Patient discharged Performed By: #### L 500.2500, L100.0100 ####[facility] [address] [place], [address] CBC W/Diff, Automatedon 11-1 Absolute Neut Normal 2.0-7.7 [facility] Comment on above: Result Comment: Canc elled via OM: Order cancelled - Patient discharged Performed By: #### L 500.2500, L100.0100 ####[facility] [address] [place], [address] HCT Normal 40-54 [facility] Comment on above: Result Comment: Canc elled via OM: Order cancelled - Patient discharged Performed By: #### L 500.2500, L100.0100 ####[facility] [address] [place], [address] HGB Normal 13.0-16.5 [facility] Comment on above: Result Comment: Canc elled via OM: Order cancelled - Patient discharged Performed By: #### L 500.2500, L100.0100 ####[facility] [address] [place], [address] MCH Normal 27.0-32.0 [facility] Comment on above: Result Comment: Canc elled via OM: Order cancelled - Patient discharged Performed By: #### L 500.2500, L100.0100 ####[facility] [address] [place], [address] MCHC Normal 32-36 [facility] Comment on above: Result Comment: Canc elled via OM: Order cancelled - Patient discharged Performed By: #### L 500.2500, L100.0100 ####[facility] [address] [place], [address] MCV Normal 80-94 [facility] Comment on above: Result Comment: Canc elled via OM: Order cancelled - Patient discharged Performed By: #### L 500.2500, L100.0100 ####[facility] [address] [place], [address] NEUT% Normal 47-70 [facility] Comment on above: Result Comment: Canc elled via OM: Order cancelled - Patient discharged Performed By: #### L 500.2500, L100.0100 ####[facility] [address] [place], [address] PLT Normal 150-450 [facility] Comment on above: Result Comment: Canc elled via OM: Order cancelled - Patient discharged Performed By: #### L 500.2500, L100.0100 ####[facility] [address] [place], [address] RBC Normal 4.6-6.2 [facility] Comment on above: Result Comment: Canc elled via OM: Order cancelled - Patient discharged Performed By: #### L 500.2500, L100.0100 ####[facility] [address] [place], [address] RDW CV Normal 11.6-14.6 [facility] Comment on above: Result Comment: Canc elled via OM: Order cancelled - Patient discharged Performed By: #### L 500.2500, L100.0100 ####[facility] [address] [place], [address] RDW SD Normal 35.1-43.9 [facility] Comment on above: Result Comment: Canc elled via OM: Order cancelled - Patient discharged Performed By: #### L 500.2500, L100.0100 ####[facility] [address] [place], [address] WBC Normal 4.4-11.0 [facility] Comment on above: Result Comment: Canc elled via OM: Order cancelled - Patient discharged Performed By: #### L 500.2500, L100.0100 ####[facility] [address] [place], [address] Basic Metabolic Profile (BMP )on 09-14-2024 BUN/CRE 21.4 RATIO High 10-20 [facility] Comment on above: Performed By: #### L 500.2500, L100.0100 ####[facility] [address] [place], [address] CA,Total 8.7 mg/dL Normal 8.5-10.1 [facility] Comment on above: Performed By: #### L 500.2500, L100.0100 ####[facility] [address] [place], [address] Chloride [Moles/Vol] 104 mmol/L Normal 98-107 [facility] Comment on above: Performed By: #### L 500.2500, L100.0100 ####[facility] [address] [place], [address] CO2 [Moles/Vol] 24.0 mmol/L Normal 21.0-32.0 [facility] Comment on above: Performed By: #### L 500.2500, L100.0100 ####[facility] [address] [place], [address] Creatinine [Mass/Vol] 1.96 mg/dL High 0.70-1.30 [facility] Comment on above: Result Comment: The validity of the calculated GFR GFRAA in patients over70 years has not been determined. Clinical correlation isessential. Performed By: #### L 500.2500, L100.0100 ####[facility] [address] [place], [address] ECRCL 28.02 ml/min Normal [facility] Comment on above: Performed By: #### L 500.2500, L100.0100 ####[facility] [address] [place], [address] EST GFR - AA 43 mL/min Low >60 [facility] Comment on above: Result Comment: Afri can French GFR Calc Performed By: #### L 500.2500, L100.0100 ####[facility] [address] [place], [address] GAP 7 Normal 5-15 [facility] Comment on above: Performed By: #### L 500.2500, L100.0100 ####[facility] [address] [place], [address] GFR/1.73 sq M.predicted among non-blacks MDRD (S/P/Bld) [Vol rate/Area] 35 mL/min/{1.73_m2} Low >60 [facility] Comment on above: Result Comment: Non- GFR Calc Performed By: #### L 500.2500, L100.0100 ####[facility] [address] [place], [address] Glucose [Mass/Vol] 292 mg/dL High 74-106 [facility] Comment on above: Result Comment: Gluc ose result greater than or equal to 200 mg/dLsuggests DIABETES MELLITUS per A.D.A. criteria. Performed By: #### L 500.2500, L100.0100 ####[facility] [address] [place], [address] Potassium [Moles/Vol] 4.0 mmol/L Normal 3.5-5.1 [facility] Comment on above: Performed By: #### L 500.2500, L100.0100 ####[facility] [address] [place], [address] Sodium [Moles/Vol] 135 mmol/L Low 136-145 [facility] Comment on above: Performed By: #### L 500.2500, L100.0100 ####[facility] [address] [place], [address] Urea nitrogen [Mass/Vol] 42 mg/dL High 7-18 [facility] Comment on above: Performed By: #### L 500.2500, L100.0100 ####[facility] [address] [place], [address] Bedside Glucoseon 09-14-2024 FINGER[facility]ICK GLU 276 mg/dL High 74-106 [facility] Comment on above: Result Comment: Dr James sim FollowedInsulin GivenMANAGEMENT OF PATIENT CARE PER NURSING PROTOCOL Performed By: #### L 501.080 ####[facility] [address] [place], [address] CBC W/Diff, Automatedon 09-01 Absolute Lymph 1.66 X10 3/uL Normal 0.83-4.51 [facility] Comment on above: Performed By: #### L 500.2500, L100.0100 ####[facility] [address] [place], [address] Absolute Neut 7.6 X10 3/uL Normal 2.0-7.7 [facility] Comment on above: Performed By: #### L 500.2500, L100.0100 ####[facility] [address] [place], [address] Basophils/100 WBC (Bld) 0.9 % Normal 0-1 [facility] Comment on above: Performed By: #### L 500.2500, L100.0100 ####[facility] [address] [place], [address] Eosinophils/100 WBC (Bld) 2.2 % Normal 0-5 [facility] Comment on above: Performed By: #### L 500.2500, L100.0100 ####[facility] [address] [place], [address] Erythrocyte distribution width (RBC) [Ratio] 13.4 % Normal 11.6-14.6 [facility] Comment on above: Performed By: #### L 500.2500, L100.0100 ####[facility] [address] [place], [address] Hematocrit (Bld) [Volume fraction] 32.8 % Low 40-54 [facility] Comment on above: Performed By: #### L 500.2500, L100.0100 ####[facility] [address] [place], [address] Hemoglobin (Bld) [Mass/Vol] 11.1 g/dL Low 13.0-16.5 [facility] Comment on above: Performed By: #### L 500.2500, L100.0100 ####[facility] [address] [place], [address] IG% 0.300 Normal 0.0-0.9 [facility] Comment on above: Result Comment: IG% - Immature Granulocytes (promyelocytes, myelocytes andmetamyelocytes) > 1% indicates that a LEFT SHIFT is Present. Performed By: #### L 500.2500, L100.0100 ####[facility] [address] [place], [address] Lymphocytes/100 WBC (Bld) 15.7 % Low 19-41 [facility] Comment on above: Performed By: #### L 500.2500, L100.0100 ####[facility] [address] [place], [address] MCH (RBC) [Entitic mass] 30.7 pg Normal 27.0-32.0 [facility] Comment on above: Performed By: #### L 500.2500, L100.0100 ####[facility] [address] [place], [address] MCHC (RBC) [Mass/Vol] 33.8 g/dL Normal 32-36 [facility] Comment on above: Performed By: #### L 500.2500, L100.0100 ####[facility] [address] [place], [address] MCV (RBC) [Entitic vol] 90.6 fL Normal 80-94 [facility] Comment on above: Performed By: #### L 500.2500, L100.0100 ####[facility] [address] [place], [address] Monocytes/100 WBC (Bld) 9.0 % Normal 0-10 [facility] Comment on above: Performed By: #### L 500.2500, L100.0100 ####[facility] [address] [place], [address] Neutrophils/100 WBC (Bld) 71.9 % High 47-70 [facility] Comment on above: Performed By: #### L 500.2500, L100.0100 ####[facility] [address] [place], [address] Nucleated RBC (Bld) [#/Vol] 0 10*3/uL Normal 0-5 [facility] Comment on above: Performed By: #### L 500.2500, L100.0100 ####[facility] [address] [place], [address] Platelet mean volume (Bld) [Entitic vol] 11.9 fL Normal 6.2-12.0 [facility] Comment on above: Performed By: #### L 500.2500, L100.0100 ####[facility] [address] [place], [address] Platelets (Bld) [#/Vol] 186 10*3/uL Normal 150-450 [facility] Comment on above: Performed By: #### L 500.2500, L100.0100 ####[facility] [address] [place], [address] RBC (Bld) [#/Vol] 3.62 10*6/uL Low 4.6-6.2 [facility] Comment on above: Performed By: #### L 500.2500, L100.0100 ####[facility] [address] [place], [address] RDW SD 44.5 fl High 35.1-43.9 [facility] Comment on above: Performed By: #### L 500.2500, L100.0100 ####[facility] [address] [place], [address] WBC (Bld) [#/Vol] 10.5 10*3/uL Normal 4.4-11.0 [facility] Comment on above: Performed By: #### L 500.2500, L100.0100 ####[facility] [address] [place], [address] Basic Metabolic Profile (BMP )on 09-13-2024 BUN Normal 7-18 [facility] Comment on above: Result Comment: Canc elled via OM: MD Ordered Performed By: #### L 500.2500, L100.0100 ####[facility] [address] [place], [address] BUN/CRE Normal 10-20 [facility] Comment on above: Result Comment: Canc elled via OM: MD Ordered Performed By: #### L 500.2500, L100.0100 ####[facility] [address] [place], [address] CA,Total Normal 8.5-10.1 [facility] Comment on above: Result Comment: Canc elled via OM: MD Ordered Performed By: #### L 500.2500, L100.0100 ####[facility] [address] [place], [address] CL Normal 98-107 [facility] Comment on above: Result Comment: Canc elled via OM: MD Ordered Performed By: #### L 500.2500, L100.0100 ####[facility] [address] [place], [address] CO2 Normal 21.0-32.0 [facility] Comment on above: Result Comment: Canc elled via OM: MD Ordered Performed By: #### L 500.2500, L100.0100 ####[facility] [address] [place], [address] CREAT,SERUM Normal 0.70-1.30 [facility] Comment on above: Result Comment: Canc elled via OM: MD Ordered Performed By: #### L 500.2500, L100.0100 ####[facility] [address] [place], [address] EST GFR Normal >60 [facility] Comment on above: Result Comment: Canc elled via OM: MD Ordered Performed By: #### L 500.2500, L100.0100 ####[facility] [address] [place], [address] EST GFR - AA Normal >60 [facility] Comment on above: Result Comment: Canc elled via OM: MD Ordered Performed By: #### L 500.2500, L100.0100 ####[facility] [address] [place], [address] GAP Normal 5-15 [facility] Comment on above: Result Comment: Canc elled via OM: MD Ordered Performed By: #### L 500.2500, L100.0100 ####[facility] [address] [place], [address] GLU Normal 74-106 [facility] Comment on above: Result Comment: Canc elled via OM: MD Ordered Performed By: #### L 500.2500, L100.0100 ####[facility] [address] [place], [address] Potassium Normal 3.5-5.1 [facility] Comment on above: Result Comment: Canc elled via OM: MD Ordered Performed By: #### L 500.2500, L100.0100 ####[facility] [address] [place], [address] Basic Metabolic Profile (BMP) Normal 136-145 [facility] Comment on above: Result Comment: Canc elled via OM: MD Ordered Performed By: #### L 500.2500, L100.0100 ####[facility] [address] [place], [address] BUN/CRE 17.4 RATIO Normal 10-20 [facility] Comment on above: Performed By: #### L 501.5200, L500.2500, L501.2300, L100.0100 ####[facility] [address] [place], [address] CA,Total 8.7 mg/dL Normal 8.5-10.1 [facility] Comment on above: Performed By: #### L 501.5200, L500.2500, L501.2300, L100.0100 ####[facility] [address] [place], [address] Chloride [Moles/Vol] 105 mmol/L Normal 98-107 [facility] Comment on above: Performed By: #### L 501.5200, L500.2500, L501.2300, L100.0100 ####[facility] [address] [place], [address] CO2 [Moles/Vol] 28.0 mmol/L Normal 21.0-32.0 [facility] Comment on above: Performed By: #### L 501.5200, L500.2500, L501.2300, L100.0100 ####[facility] [address] [place], [address] Creatinine [Mass/Vol] 1.78 mg/dL High 0.70-1.30 [facility] Comment on above: Result Comment: The validity of the calculated GFR GFRAA in patients over70 years has not been determined. Clinical correlation isessential. Performed By: #### L 501.5200, L500.2500, L501.2300, L100.0100 ####[facility] [address] [place], [address] ECRCL 30.95 ml/min Normal [facility] Comment on above: Performed By: #### L 501.5200, L500.2500, L501.2300, L100.0100 ####[facility] [address] [place], [address] EST GFR - AA 47 mL/min Low >60 [facility] Comment on above: Result Comment: Afri can French GFR Calc Performed By: #### L 501.5200, L500.2500, L501.2300, L100.0100 ####[facility] [address] [place], [address] GAP 7 Normal 5-15 [facility] Comment on above: Performed By: #### L 501.5200, L500.2500, L501.2300, L100.0100 ####[facility] [address] [place], [address] GFR/1.73 sq M.predicted among non-blacks MDRD (S/P/Bld) [Vol rate/Area] 39 mL/min/{1.73_m2} Low >60 [facility] Comment on above: Result Comment: Non- GFR Calc Performed By: #### L 501.5200, L500.2500, L501.2300, L100.0100 ####[facility] [address] [place], [address] Glucose [Mass/Vol] 138 mg/dL High 74-106 [facility] Comment on above: Result Comment: Fast ing Glucose result greater than or equal to 126 mg/dLsuggests DIABETES MELLITUS per A.D.A. criteria. Performed By: #### L 501.5200, L500.2500, L501.2300, L100.0100 ####[facility] [address] [place], [address] Potassium [Moles/Vol] 3.4 mmol/L Low 3.5-5.1 [facility] Comment on above: Performed By: #### L 501.5200, L500.2500, L501.2300, L100.0100 ####[facility] [address] [place], [address] Sodium [Moles/Vol] 140 mmol/L Normal 136-145 [facility] Comment on above: Performed By: #### L 501.5200, L500.2500, L501.2300, L100.0100 ####[facility] [address] [place], [address] Urea nitrogen [Mass/Vol] 31 mg/dL High 7-18 [facility] Comment on above: Performed By: #### L 501.5200, L500.2500, L501.2300, L100.0100 ####[facility] [address] [place], [address] Bedside Glucoseon 09-13-2024 FINGERSTICK GLU 281 mg/dL High 74-106 [facility] Comment on above: Result Comment: ADITI GEMENT OF PATIENT CARE PER NURSING PROTOCOL Performed By: #### L 501.080 ####[facility] [address] [place], [address] FINGERSTICK GLU 179 mg/dL High 74-106 [facility] Comment on above: Result Comment: ADITI GEMENT OF PATIENT CARE PER NURSING PROTOCOL Performed By: #### L 501.080 ####[facility] [address] [place], [address] FINGERSTICK GLU 234 mg/dL High 74-106 [facility] Comment on above: Result Comment: ADITI GEMENT OF PATIENT CARE PER NURSING PROTOCOL Performed By: #### L 501.080 ####[facility] [address] [place], [address] FINGERSTICK GLU 238 mg/dL High 74-106 [facility] Comment on above: Result Comment: ADITI GEMENT OF PATIENT CARE PER NURSING PROTOCOL Performed By: #### L 501.080 ####[facility] [address] [place], [address] FINGERSTICK GLU 126 mg/dL High 74-106 [facility] Comment on above: Result Comment: ADITI GEMENT OF PATIENT CARE PER NURSING PROTOCOL Performed By: #### L 501.080 ####[facility] [address] [place], [address] CBC W/Diff, Automatedon 11- Absolute Neut Normal 2.0-7.7 [facility] Comment on above: Result Comment: Canc elled via OM: MD Ordered Performed By: #### L 500.2500, L100.0100 ####[facility] [address] [place], [address] HCT Normal 40-54 [facility] Comment on above: Result Comment: Canc elled via OM: MD Ordered Performed By: #### L 500.2500, L100.0100 ####[facility] [address] [place], [address] HGB Normal 13.0-16.5 [facility] Comment on above: Result Comment: Canc elled via OM: MD Ordered Performed By: #### L 500.2500, L100.0100 ####[facility] [address] [place], [address] MCH Normal 27.0-32.0 [facility] Comment on above: Result Comment: Canc elled via OM: MD Ordered Performed By: #### L 500.2500, L100.0100 ####[facility] [address] [place], [address] MCHC Normal 32-36 [facility] Comment on above: Result Comment: Canc elled via OM: MD Ordered Performed By: #### L 500.2500, L100.0100 ####[facility] [address] [place], [address] MCV Normal 80-94 [facility] Comment on above: Result Comment: Canc elled via OM: MD Ordered Performed By: #### L 500.2500, L100.0100 ####[facility] [address] [place], [address] NEUT% Normal 47-70 [facility] Comment on above: Result Comment: Canc elled via OM: MD Ordered Performed By: #### L 500.2500, L100.0100 ####[facility] [address] [place], [address] PLT Normal 150-450 [facility] Comment on above: Result Comment: Canc elled via OM: MD Ordered Performed By: #### L 500.2500, L100.0100 ####[facility] [address] [place], [address] RBC Normal 4.6-6.2 [facility] Comment on above: Result Comment: Canc elled via OM: MD Ordered Performed By: #### L 500.2500, L100.0100 ####[facility] [address] [place], [address] RDW CV Normal 11.6-14.6 [facility] Comment on above: Result Comment: Canc elled via OM: MD Ordered Performed By: #### L 500.2500, L100.0100 ####[facility] [address] [place], [address] RDW SD Normal 35.1-43.9 [facility] Comment on above: Result Comment: Canc elled via OM: MD Ordered Performed By: #### L 500.2500, L100.0100 ####[facility] [address] [place], [address] WBC Normal 4.4-11.0 [facility] Comment on above: Result Comment: Canc elled via OM: MD Ordered Performed By: #### L 500.2500, L100.0100 ####[facility] [address] [place], [address] Absolute Lymph 2.32 X10 3/uL Normal 0.83-4.51 [facility] Comment on above: Performed By: #### L 501.5200, L500.2500, L501.2300, L100.0100 ####[facility] [address] [place], [address] Absolute Neut 7.4 X10 3/uL Normal 2.0-7.7 [facility] Comment on above: Performed By: #### L 501.5200, L500.2500, L501.2300, L100.0100 ####[facility] [address] [place], [address] Basophils/100 WBC (Bld) 0.8 % Normal 0-1 [facility] Comment on above: Performed By: #### L 501.5200, L500.2500, L501.2300, L100.0100 ####[facility] [address] [place], [address] Eosinophils/100 WBC (Bld) 1.3 % Normal 0-5 [facility] Comment on above: Performed By: #### L 501.5200, L500.2500, L501.2300, L100.0100 ####[facility] [address] [place], [address] Erythrocyte distribution width (RBC) [Ratio] 13.8 % Normal 11.6-14.6 [facility] Comment on above: Performed By: #### L 501.5200, L500.2500, L501.2300, L100.0100 ####[facility] [address] [place], [address] Hematocrit (Bld) [Volume fraction] 30.7 % Low 40-54 [facility] Comment on above: Performed By: #### L 501.5200, L500.2500, L501.2300, L100.0100 ####[facility] [address] [place], [address] Hemoglobin (Bld) [Mass/Vol] 10.4 g/dL Low 13.0-16.5 [facility] Comment on above: Performed By: #### L 501.5200, L500.2500, L501.2300, L100.0100 ####[facility] [address] [place], [address] IG% 0.400 Normal 0.0-0.9 [facility] Comment on above: Result Comment: IG% - Immature Granulocytes (promyelocytes, myelocytes andmetamyelocytes) > 1% indicates that a LEFT SHIFT is Present. Performed By: #### L 501.5200, L500.2500, L501.2300, L100.0100 ####[facility] [address] [place], [address] Lymphocytes/100 WBC (Bld) 21.2 % Normal 19-41 [facility] Comment on above: Performed By: #### L 501.5200, L500.2500, L501.2300, L100.0100 ####[facility] [address] [place], [address] MCH (RBC) [Entitic mass] 30.6 pg Normal 27.0-32.0 [facility] Comment on above: Performed By: #### L 501.5200, L500.2500, L501.2300, L100.0100 ####[facility] [address] [place], [address] MCHC (RBC) [Mass/Vol] 33.9 g/dL Normal 32-36 [facility] Comment on above: Performed By: #### L 501.5200, L500.2500, L501.2300, L100.0100 ####[facility] [address] [place], [address] MCV (RBC) [Entitic vol] 90.3 fL Normal 80-94 [facility] Comment on above: Performed By: #### L 501.5200, L500.2500, L501.2300, L100.0100 ####[facility] [address] [place], [address] Monocytes/100 WBC (Bld) 9.3 % Normal 0-10 [facility] Comment on above: Performed By: #### L 501.5200, L500.2500, L501.2300, L100.0100 ####[facility] [address] [place], [address] Neutrophils/100 WBC (Bld) 67.0 % Normal 47-70 [facility] Comment on above: Performed By: #### L 501.5200, L500.2500, L501.2300, L100.0100 ####[facility] [address] [place], [address] Nucleated RBC (Bld) [#/Vol] 0 10*3/uL Normal 0-5 [facility] Comment on above: Performed By: #### L 501.5200, L500.2500, L501.2300, L100.0100 ####[facility] [address] [place], [address] Platelet mean volume (Bld) [Entitic vol] 11.4 fL Normal 6.2-12.0 [facility] Comment on above: Performed By: #### L 501.5200, L500.2500, L501.2300, L100.0100 ####[facility] [address] [place], [address] Platelets (Bld) [#/Vol] 168 10*3/uL Normal 150-450 [facility] Comment on above: Performed By: #### L 501.5200, L500.2500, L501.2300, L100.0100 ####[facility] [address] [place], [address] RBC (Bld) [#/Vol] 3.40 10*6/uL Low 4.6-6.2 [facility] Comment on above: Performed By: #### L 501.5200, L500.2500, L501.2300, L100.0100 ####[facility] [address] [place], [address] RDW SD 45.1 fl High 35.1-43.9 [facility] Comment on above: Performed By: #### L 501.5200, L500.2500, L501.2300, L100.0100 ####[facility] [address] [place], [address] WBC (Bld) [#/Vol] 11.0 10*3/uL Normal 4.4-11.0 [facility] Comment on above: Performed By: #### L 501.5200, L500.2500, L501.2300, L100.0100 ####[facility] [address] [place], [address] Magnesiumon 09-13-2024 Magnesium [Mass/Vol] 2.0 mg/dL Normal 1.6-2.6 [facility] Comment on above: Performed By: #### L 501.5200, L500.2500, L501.2300, L100.0100 ####[facility] [address] [place], [address] Phosphoruson 09-13-2024 Phosphate [Mass/Vol] 3.2 mg/dL Normal 2.5-4.9 [facility] Comment on above: Performed By: #### L 501.5200, L500.2500, L501.2300, L100.0100 ####[facility] [address] [place], [address] 12 Lead EKGon 09-12-2024 12 Lead EKG Normal [facility] BNP,B-Type NATRIURETIC PEPTI Silviano 09-12-2024 Natriuretic peptide B (Bld) [Mass/Vol] 903.4 pg/mL High 0-100 [facility] Comment on above: Performed By: #### L 100.0100, L501.5425, L300.3900, L501.5200, L300.4310, L500.2500, L503.6620 ####[facility] [address] [place], [address] Basic Metabolic Profile (BMP )on 09-12-2024 BUN/CRE 14.5 RATIO Normal 10-20 [facility] Comment on above: Order Comment: 1Y Performed By: #### L 100.0100, L501.5425, L300.3900, L501.5200, L300.4310, L500.2500, L503.6620 ####[facility] [address] [place], [address] CA,Total 9.1 mg/dL Normal 8.5-10.1 [facility] Comment on above: Order Comment: 1Y Performed By: #### L 100.0100, L501.5425, L300.3900, L501.5200, L300.4310, L500.2500, L503.6620 ####[facility] [address] [place], [address] Chloride [Moles/Vol] 105 mmol/L Normal 98-107 [facility] Comment on above: Order Comment: 1Y Performed By: #### L 100.0100, L501.5425, L300.3900, L501.5200, L300.4310, L500.2500, L503.6620 ####[facility] [address] [place], [address] CO2 [Moles/Vol] 22.0 mmol/L Normal 21.0-32.0 [facility] Comment on above: Order Comment: 1Y Performed By: #### L 100.0100, L501.5425, L300.3900, L501.5200, L300.4310, L500.2500, L503.6620 ####[facility] [address] [place], [address] Creatinine [Mass/Vol] 1.86 mg/dL High 0.70-1.30 [facility] Comment on above: Order Comment: 1Y Result Comment: The validity of the calculated GFR GFRAA in patients over70 years has not been determined. Clinical correlation isessential. Performed By: #### L 100.0100, L501.5425, L300.3900, L501.5200, L300.4310, L500.2500, L503.6620 ####[facility] [address] [place], [address] ECRCL 29.61 ml/min Normal [facility] Comment on above: Order Comment: 1Y Performed By: #### L 100.0100, L501.5425, L300.3900, L501.5200, L300.4310, L500.2500, L503.6620 ####[facility] [address] [place], [address] EST GFR - AA 45 mL/min Low >60 [facility] Comment on above: Order Comment: 1Y Result Comment: Afri can French GFR Calc Performed By: #### L 100.0100, L501.5425, L300.3900, L501.5200, L300.4310, L500.2500, L503.6620 ####[facility] [address] [place], [address] GAP 11 Normal 5-15 [facility] Comment on above: Order Comment: 1Y Performed By: #### L 100.0100, L501.5425, L300.3900, L501.5200, L300.4310, L500.2500, L503.6620 ####[facility] [address] [place], [address] GFR/1.73 sq M.predicted among non-blacks MDRD (S/P/Bld) [Vol rate/Area] 37 mL/min/{1.73_m2} Low >60 [facility] Comment on above: Order Comment: 1Y Result Comment: Non- GFR Calc Performed By: #### L 100.0100, L501.5425, L300.3900, L501.5200, L300.4310, L500.2500, L503.6620 ####[facility] [address] [place], [address] Glucose [Mass/Vol] 369 mg/dL High 74-106 [facility] Comment on above: Order Comment: 1Y Result Comment: Gluc ose result greater than or equal to 200 mg/dLsuggests DIABETES MELLITUS per A.D.A. criteria. Performed By: #### L 100.0100, L501.5425, L300.3900, L501.5200, L300.4310, L500.2500, L503.6620 ####[facility] [address] [place], [address] Potassium [Moles/Vol] 4.1 mmol/L Normal 3.5-5.1 [facility] Comment on above: Order Comment: 1Y Performed By: #### L 100.0100, L501.5425, L300.3900, L501.5200, L300.4310, L500.2500, L503.6620 ####[facility] [address] [place], [address] Sodium [Moles/Vol] 138 mmol/L Normal 136-145 [facility] Comment on above: Order Comment: 1Y Performed By: #### L 100.0100, L501.5425, L300.3900, L501.5200, L300.4310, L500.2500, L503.6620 ####[facility] [address] [place], [address] Urea nitrogen [Mass/Vol] 27 mg/dL High 7-18 [facility] Comment on above: Order Comment: 1Y Performed By: #### L 100.0100, L501.5425, L300.3900, L501.5200, L300.4310, L500.2500, L503.6620 ####[facility] [address] [place], [address] Bedside Glucoseon 09-12-2024 FINGERSTICK GLU 202 mg/dL High 74-106 [facility] Comment on above: Result Comment: ADITI GEMENT OF PATIENT CARE PER NURSING PROTOCOL Performed By: #### L 501.080 ####[facility] [address] [place], [address] FINGERSTICK GLU 122 mg/dL High 74-106 [facility] Comment on above: Result Comment: ADITI GEMENT OF PATIENT CARE PER NURSING PROTOCOL Performed By: #### L 501.080 ####[facility] [address] [place], [address] FINGERSTICK GLU 398 mg/dL High 74-106 [facility] Comment on above: Result Comment: ADITI GEMENT OF PATIENT CARE PER NURSING PROTOCOL Performed By: #### L 501.080 ####[facility] [address] [place], [address] FINGERSTICK GLU 377 mg/dL High 74-106 [facility] Comment on above: Result Comment: ADITI ESCOBEDO OF PATIENT CARE PER NURSING PROTOCOL Performed By: #### L 501.080 ####[facility] [address] [place], [address] CBC W/Diff, Automatedon 11- Absolute Lymph 2.62 X10 3/uL Normal 0.83-4.51 [facility] Comment on above: Performed By: #### L 100.0100, L501.5425, L300.3900, L501.5200, L300.4310, L500.2500, L503.6620 ####[facility] [address] [place], [address] Absolute Neut 19.7 X10 3/uL High 2.0-7.7 [facility] Comment on above: Performed By: #### L 100.0100, L501.5425, L300.3900, L501.5200, L300.4310, L500.2500, L503.6620 ####[facility] [address] [place], [address] Basophils/100 WBC (Bld) 0.7 % Normal 0-1 [facility] Comment on above: Performed By: #### L 100.0100, L501.5425, L300.3900, L501.5200, L300.4310, L500.2500, L503.6620 ####[facility] [address] [place], [address] Eosinophils/100 WBC (Bld) 0.8 % Normal 0-5 [facility] Comment on above: Performed By: #### L 100.0100, L501.5425, L300.3900, L501.5200, L300.4310, L500.2500, L503.6620 ####[facility] [address] [place], [address] Erythrocyte distribution width (RBC) [Ratio] 13.8 % Normal 11.6-14.6 [facility] Comment on above: Performed By: #### L 100.0100, L501.5425, L300.3900, L501.5200, L300.4310, L500.2500, L503.6620 ####[facility] [address] [place], [address] Hematocrit (Bld) [Volume fraction] 38.9 % Low 40-54 [facility] Comment on above: Performed By: #### L 100.0100, L501.5425, L300.3900, L501.5200, L300.4310, L500.2500, L503.6620 ####[facility] [address] [place], [address] Hemoglobin (Bld) [Mass/Vol] 13.1 g/dL Normal 13.0-16.5 [facility] Comment on above: Performed By: #### L 100.0100, L501.5425, L300.3900, L501.5200, L300.4310, L500.2500, L503.6620 ####[facility] [address] [place], [address] IG% 0.800 Normal 0.0-0.9 [facility] Comment on above: Result Comment: IG% - Immature Granulocytes (promyelocytes, myelocytes andmetamyelocytes) > 1% indicates that a LEFT SHIFT is Present. Performed By: #### L 100.0100, L501.5425, L300.3900, L501.5200, L300.4310, L500.2500, L503.6620 ####[facility] [address] [place], [address] Lymphocytes/100 WBC (Bld) 10.7 % Low 19-41 [facility] Comment on above: Performed By: #### L 100.0100, L501.5425, L300.3900, L501.5200, L300.4310, L500.2500, L503.6620 ####[facility] [address] [place], [address] MCH (RBC) [Entitic mass] 30.6 pg Normal 27.0-32.0 [facility] Comment on above: Performed By: #### L 100.0100, L501.5425, L300.3900, L501.5200, L300.4310, L500.2500, L503.6620 ####[facility] [address] [place], [address] MCHC (RBC) [Mass/Vol] 33.7 g/dL Normal 32-36 [facility] Comment on above: Performed By: #### L 100.0100, L501.5425, L300.3900, L501.5200, L300.4310, L500.2500, L503.6620 ####[facility] [address] [place], [address] MCV (RBC) [Entitic vol] 90.9 fL Normal 80-94 [facility] Comment on above: Performed By: #### L 100.0100, L501.5425, L300.3900, L501.5200, L300.4310, L500.2500, L503.6620 ####[facility] [address] [place], [address] Monocytes/100 WBC (Bld) 6.2 % Normal 0-10 [facility] Comment on above: Performed By: #### L 100.0100, L501.5425, L300.3900, L501.5200, L300.4310, L500.2500, L503.6620 ####[facility] [address] [place], [address] Neutrophils/100 WBC (Bld) 80.8 % High 47-70 [facility] Comment on above: Performed By: #### L 100.0100, L501.5425, L300.3900, L501.5200, L300.4310, L500.2500, L503.6620 ####[facility] [address] [place], [address] Nucleated RBC (Bld) [#/Vol] 0 10*3/uL Normal 0-5 [facility] Comment on above: Performed By: #### L 100.0100, L501.5425, L300.3900, L501.5200, L300.4310, L500.2500, L503.6620 ####[facility] [address] [place], [address] Platelet mean volume (Bld) [Entitic vol] 11.4 fL Normal 6.2-12.0 [facility] Comment on above: Performed By: #### L 100.0100, L501.5425, L300.3900, L501.5200, L300.4310, L500.2500, L503.6620 ####[facility] [address] [place], [address] Platelets (Bld) [#/Vol] 227 10*3/uL Normal 150-450 [facility] Comment on above: Performed By: #### L 100.0100, L501.5425, L300.3900, L501.5200, L300.4310, L500.2500, L503.6620 ####[facility] [address] [place], [address] RBC (Bld) [#/Vol] 4.28 10*6/uL Low 4.6-6.2 [facility] Comment on above: Performed By: #### L 100.0100, L501.5425, L300.3900, L501.5200, L300.4310, L500.2500, L503.6620 ####[facility] [address] [place], [address] RDW SD 46.5 fl High 35.1-43.9 [facility] Comment on above: Performed By: #### L 100.0100, L501.5425, L300.3900, L501.5200, L300.4310, L500.2500, L503.6620 ####[facility] [address] [place], [address] WBC (Bld) [#/Vol] 24.4 10*3/uL High 4.4-11.0 [facility] Comment on above: Performed By: #### L 100.0100, L501.5425, L300.3900, L501.5200, L300.4310, L500.2500, L503.6620 ####[facility] [address] [place], [address] Chest 1 View (Portable)on Chest 1 View (Portable) Normal [facility] Echo Completeon 09-12-2024 Echo Complete Normal [facility] Emergency Department Summary on 09-12-2024 Emergency Department Summary Normal [facility] Kidney and Bladderon 024 Kidney and Bladder Normal [facility] L501.4020on 09-12-2024 TROPONIN-I HS 346 pg/mL Invalid Interpretation Code 3.0-78.0 [facility] Comment on above: Order Comment: 'TROP ' Serial specimen #1, #2 or #3: 3 Result Comment: Crit ical Result(s) Called at: 09:19:13 09/12/2024 by:Eve Mendoza to Tania Cruz. Results read back by same. Please Note: New Test Units and Gender Specific Reference Ranges. For more information see Policy Stat Procedure [place] High Sensitivity Troponin (TNIH) and attachments. Performed By: #### L 501.4020 ####[facility] [address] [place], [address] TROPONIN-I HS 205 pg/mL Invalid Interpretation Code 3.0-78.0 [facility] Comment on above: Result Comment: Crit ical Result(s) Called at: 06:27:52 09/12/2024 by:Eve Valiente. Results read back by same. Please Note: New Test Units and Gender Specific Reference Ranges. For more information see Policy Stat Procedure [place] High Sensitivity Troponin (TNIH) and attachments. Performed By: #### L 501.4020 ####[facility] [address] [place], [address] L501.5425on 09-12-2024 TROPONIN-I HS 57 pg/mL Normal 3.0-78.0 [facility] Comment on above: Order Comment: 1Y Result Comment: Helder francisco Note: New Test Units and Gender Specific Reference Ranges. For more information see Policy Stat Procedure [place] High Sensitivity Troponin (TNIH) and attachments. Performed By: #### L 100.0100, L501.5425, L300.3900, L501.5200, L300.4310, L500.2500, L503.6620 ####[facility] [address] [place], [address] Magnesiumon 09-12-2024 Magnesium [Mass/Vol] 2.1 mg/dL Normal 1.6-2.6 [facility] Comment on above: Order Comment: 1Y Performed By: #### L 100.0100, L501.5425, L300.3900, L501.5200, L300.4310, L500.2500, L503.6620 ####[facility] [address] [place], [address] Partial Thromboplast Timeon 09-12-2024 aPTT Coag (Bld) [Time] 35.1 s Normal 24.1-36.2 [facility] Comment on above: Performed By: #### L 100.0100, L501.5425, L300.3900, L501.5200, L300.4310, L500.2500, L503.6620 ####[facility] [address] [place], [address] Prothrombin Time w/INRon INR Coag (PPP) [Relative time] 1.1 {INR} Normal [facility] Comment on above: Performed By: #### L 100.0100, L501.5425, L300.3900, L501.5200, L300.4310, L500.2500, L503.6620 ####[facility] [address] [place], [address] PT Coag (PPP) [Time] 14.6 s Normal 11.7-14.9 [facility] Comment on above: Performed By: #### L 100.0100, L501.5425, L300.3900, L501.5200, L300.4310, L500.2500, L503.6620 ####[facility] [address] [place], [place], [address] Renal Artery Duplex Ultrasou ndon 09-12-2024 Renal Artery Duplex Ultrasound Normal [facility] CBC W Auto Differential pane l (Bld)on 07-07-2024 Basophils (Bld) [#/Vol] 0.09 x10*3/uL Normal 0.00-0.10 [facility] Comment on above: Performed By: #### 5 7021-8 #### MAGGI PARNELL ([id number]) [facility] ([facility]) [address] [place] [address] Basophils/100 WBC (Bld) 1.1 % Normal 0.0-2.0 [facility] Comment on above: Performed By: #### 5 7021-8 #### MAGGI PARNELL ([id number]) [facility] ([facility]) [address] [place] [address] Eosinophils (Bld) [#/Vol] 0.43 x10*3/uL High 0.00-0. 40 [facility] Comment on above: Performed By: #### 5 7021-8 #### MAGGI PARNELL ([id number]) [facility] ([facility]) [address] [place] [address] Eosinophils/100 WBC (Bld) 5.4 % Normal 0.0-6.0 [facility] Comment on above: Performed By: #### 5 7021-8 #### MAGGI PARNELL ([id number]) [facility] ([facility]) [address] [place] [address] Erythrocyte distribution width (RBC) [Ratio] 13.5 % Normal 11.5-14.5 [facility] Comment on above: Performed By: #### 5 7021-8 #### MAGGI PARNELL ([id number]) [facility] ([facility]) [address] [place] [address] Hematocrit (Bld) [Volume fraction] 43.5 % Normal 41.0-52.0 [facility] Comment on above: Performed By: #### 5 7021-8 #### MAGGI PARNELL ([id number]) [facility] ([facility]) [address] [place] [address] Hemoglobin (Bld) [Mass/Vol] 13.6 g/dL Normal 13.5-17.5 [facility] Comment on above: Performed By: #### 5 7021-8 #### MAGGI PARNELL ([id number]) [facility] ([facility]) [address] [place] [address] Immature granulocytes (Bld) [#/Vol] 0.02 x10*3/uL Normal 0.00-0.50 [facility] Comment on above: Performed By: #### 5 7021-8 #### MAGGI PARNELL ([id number]) [facility] ([facility]) [address] [place] [address] Immature granulocytes/100 WBC (Bld) 0.3 % Normal 0.0-0.9 [facility] Comment on above: Result Comment: Arielle ture Granulocyte Count (IG) includes promyelocytes, myelocytes and metamyelocytes but does not include bands. Percent differential counts (%) should be interpreted in the context of the absolute cell counts (cells/UL). Performed By: #### 5 7021-8 #### MAGGI PARNELL ([id number]) [facility] ([facility]) [address] [place] [address] Lymphocytes (Bld) [#/Vol] 2.08 x10*3/uL Normal 0.80-3. 00 [facility] Comment on above: Performed By: #### 5 7021-8 #### MAGGI PARNELL ([id number]) [facility] ([facility]) [address] [place] [address] Lymphocytes/100 WBC (Bld) 26.3 % Normal 13.0-44.0 [facility] Comment on above: Performed By: #### 5 7021-8 #### MAGGI PARNELL ([id number]) [facility] ([facility]) [address] [place] [address]17[address] MCH (RBC) [Entitic mass] 30.4 pg Normal 26.0-34.0 [facility] Comment on above: Performed By: #### 5 7021-8 #### MAGGI PARNELL ([id number]) [facility] ([facility]) [address] [place] [address] MCHC (RBC) [Mass/Vol] 31.3 g/dL Low 32.0-36.0 [facility] Comment on above: Performed By: #### 5 7021-8 #### MAGGI PARNELL ([id number]) [facility] ([facility]) [address] [place] [address] MCV (RBC) [Entitic vol] 97 fL Normal 80-100 [facility] Comment on above: Performed By: #### 5 7021-8 #### MAGGI PARNELL ([id number]) [facility] ([facility]) [address] [place] [address] Monocytes (Bld) [#/Vol] 0.60 x10*3/uL Normal 0.05-0.80 [facility] Comment on above: Performed By: #### 5 7021-8 #### MAGGI PARNELL ([id number]) [facility] ([facility]) [address] [place] [address] Monocytes/100 WBC (Bld) 7.6 % Normal 2.0-10.0 [facility] Comment on above: Performed By: #### 5 7021-8 #### MAGGI PARNELL ([id number]) [facility] ([facility]) [address] [place] [address]75[address] Neutrophils (Bld) [#/Vol] 4.68 x10*3/uL Normal 1.60-5. 50 [facility] Comment on above: Result Comment: Perc ent differential counts (%) should be interpreted in the context of the absolute cell counts (cells/uL). Performed By: #### 5 7021-8 #### MAGGI PARNELL ([id number]) [facility] ([facility]) [address] [place] [address] 89434 Neutrophils/100 WBC (Bld) 59.3 % Normal 40.0-80.0 [facility] Comment on above: Performed By: #### 5 7021-8 #### MAGGI PARNELL ([id number]) [facility] ([facility]) [address] [place] [address] 32419 Nucleated RBC/100 WBC (Bld) [Ratio] 0.0 /100 WBCs Normal 0.0-0.0 [facility] Comment on above: Performed By: #### 5 7021-8 #### MAGGI PARNELL ([id number]) [facility] ([facility]) [address] [place] [address] 18[address] Platelets (Bld) [#/Vol] 260 x10*3/uL Normal 150-450 [facility] Comment on above: Performed By: #### 5 7021-8 #### MAGGI PARNELL ([id number]) [facility] ([facility]) [address] [place] [address] 41904 RBC (Bld) [#/Vol] 4.48 x10*6/uL Low 4.50-5.90 [facility] Comment on above: Performed By: #### 5 7021-8 #### MAGGI PARNELL ([id number]) [facility] ([facility]) [address] [place] [address] 67125 WBC (Bld) [#/Vol] 7.9 x10*3/uL Normal 4.4-11.3 [facility] Comment on above: Performed By: #### 5 7021-8 #### MAGGI PARNELL ([id number]) [facility] ([facility]) [address] [place] [address] 07624 Comprehensive metabolic 2000 panelon 07-07-2024 Albumin BCP dye [Mass/Vol] 4.3 g/dL Normal 3.4-5.0 [facility] Comment on above: Performed By: #### 2 4323-8 #### MAGGI PARNELL ([id number]) [facility] ([facility]) [address] [place] [address] 23206 ALP [Catalytic activity/Vol] 69 U/L Normal 33-136 [facility] Comment on above: Performed By: #### 2 4323-8 #### MAGGI PARNELL ([id number]) [facility] ([facility]) [address] [place] [address] 22670 ALT With P-5'-P [Catalytic activity/Vol] 8 U/L Low 10-52 [facility] Comment on above: Result Comment: Twial ents treated with Sulfasalazine may generate falsely decreased results for ALT. Performed By: #### 2 4323-8 #### MAGGI PARNELL ([id number]) [facility] ([facility]) [address] [place] [address] 83974 Anion gap [Moles/Vol] 14 mmol/L Normal 10-20 [facility] Comment on above: Performed By: #### 2 4323-8 #### MAGGI PARNELL ([id number]) [facility] ([facility]) [address] [place] [address] 78448 AST With P-5'-P [Catalytic activity/Vol] 13 U/L Normal 9-39 [facility] Comment on above: Performed By: #### 2 4323-8 #### MAGGI PARNELL ([id number]) [facility] ([facility]) [address] [place] [address] 79048 Bilirubin [Mass/Vol] 0.5 mg/dL Normal 0.0-1.2 [facility] Comment on above: Performed By: #### 2 4323-8 #### MAGGI PARNELL ([id number]) [facility] ([facility]) [address] [place] [address] Calcium [Mass/Vol] 9.5 mg/dL Normal 8.6-10.3 [facility] Comment on above: Performed By: #### 2 4323-8 #### MAGGI PARNELL ([id number]) [facility] ([facility]) [address] [place] [address] Chloride [Moles/Vol] 106 mmol/L Normal 98-107 [facility] Comment on above: Performed By: #### 2 4323-8 #### MAGGI PARNELL ([id number]) [facility] ([facility]) [address] [place] [address] CO2 [Moles/Vol] 27 mmol/L Normal 21-32 [facility] Comment on above: Performed By: #### 2 4323-8 #### MAGGI PARNELL ([id number]) [facility] ([facility]) [address] [place] [address] Creatinine [Mass/Vol] 1.61 mg/dL High 0.50-1.30 [facility] Comment on above: Performed By: #### 2 4323-8 #### MAGGI PARNELL ([id number]) [facility] ([facility]) [address] [place] [address] Glomerular filtration rate/1.73 sq M.predicted 43 mL/min/1.73m*2 Low >60 [facility] Comment on above: Result Comment: Calc ulations of estimated GFR are performed using the 2020 CKD-EPI Study Refit equation without the race variable for the IDMS-Traceable creatinine methods. https://jasn.asnjournals.org/content//ASN.20 39699947 Performed By: #### 2 4323-8 #### MAGGI PARNELL ([id number]) [facility] ([facility]) [address] [place] [address] Glucose [Mass/Vol] 119 mg/dL High 74-99 [facility] Comment on above: Performed By: #### 2 4323-8 #### MAGGI PARNELL ([id number]) [facility] ([facility]) [address] [place] [address] 20112 Potassium [Moles/Vol] 4.0 mmol/L Normal 3.5-5.3 [facility] Comment on above: Performed By: #### 2 4323-8 #### MAGGI PARNELL ([id number]) [facility] ([facility]) [address] [place] [address] 47741 Protein [Mass/Vol] 6.8 g/dL Normal 6.4-8.2 [facility] Comment on above: Performed By: #### 2 4323-8 #### MAGGI PARNELL ([id number]) [facility] ([facility]) [address] [place] [address] 91172 Sodium [Moles/Vol] 143 mmol/L Normal 136-145 [facility] Comment on above: Performed By: #### 2 4323-8 #### MAGGI APRNELL ([id number]) [facility] ([facility]) [address] [place] [address] 34259 Urea nitrogen [Mass/Vol] 28 mg/dL High 6-23 [facility] Comment on above: Performed By: #### 2 4323-8 #### MAGGI PARNELL ([id number]) [facility] ([facility]) [address] [place] [address] 09150 HbA1c (Bld) [Mass fraction]o n 07-07-2024 Average glucose Estimated from glycated hemoglobin (Bld) [Mass/Vol] 180 mg/dL Normal Not Established [facility] Comment on above: Order Comment: Diagn osis of Diabetes-Adults Non-Diabetic: < or = 5.6% Increased risk for developing diabetes: 5.7-6.4% Diagnostic of diabetes: > or = 6.5% Performed By: #### 4 548-4 #### ALENA Paredes ([id number]) [facility] ([facility]) [id number] [place] [address] 15230 Hemoglobin A1c/Hemoglobin.to alcira 07-07-2024 HbA1c (Bld) [Mass fraction] 7.9 % High see below [facility] Comment on above: Order Comment: Diagn osis of Diabetes-Adults Non-Diabetic: < or = 5.6% Increased risk for developing diabetes: 5.7-6.4% Diagnostic of diabetes: > or = 6.5% Performed By: #### 4 548-4 #### ALENA Paredes ([id number]) [facility] ([facility]) [address] [place] [address] Phosphateon 07-07-2024 Phosphate [Mass/Vol] 3.8 mg/dL Normal 2.5-4.9 [facility] Comment on above: Result Comment: The performance characteristics of phosphorus testing in heparinized plasma have been validated by the individual laboratory site where testing is performed. Testing on heparinized plasma is not approved by the FDA; however, such approval is not necessary. Performed By: #### 2 777-1 #### MAGGI PARNELL ([id number]) [facility] ([facility]) [address] [place] [address] Thyrotropinon 07-07-2024 TSH Qn 0.85 m[IU]/L Normal 0.44-3.98 [facility] Comment on above: Order Comment: TSH t esting is performed using different testing methodology at [facility] than at other [facility]. Direct result comparisons should only be made within the same method. Performed By: #### 3 016-3 #### MAGGI PARNELL ([id number]) [facility] ([facility]) [facility] [place] [address] Thyroxine.freeon 07-07-2024 Free T4 [Mass/Vol] 1.01 ng/dL Normal 0.61-1.12 [facility] Comment on above: Order Comment: Thyro xine Free testing is performed using different testing methodology at [facility] than at other [facility]. Direct result comparisons should only be [...] By: #### 3 024-7 #### MAGGI PARNELL ([id number]) [facility] ([facility]) [address] [place] [address] 15580 Urateon 07-07-2024 Urate [Mass/Vol] 5.7 mg/dL Normal 4.0-7.5 [facility] Comment on above: Result Comment: Hortencia puncture immediately after or during the administration of Metamizole may lead to falsely low results. Testing should be performed immediately prior to Metamizole dosing. Performed By: #### 3 084-1 #### MAGGI PARNELL ([id number]) [facility] ([facility]) [address] [place] [address] 63440 PT D/C Summary (1)on 024 PT D/C Summary (1) Normal [facility] Albumin/Creatinineon 024 Albumin/Creatinine DL <= 20 mg/L (U) [Mass ratio] 221.6 ug/mg Creat High <30.0 [facility] Comment on above: Performed By: #### 1 4959-1 #### ALENA Paredes ([id number]) [facility] ([facility]) [address] [place] [address] 07974 Albumin/Creatinine DL <= 20 mg/L (U) [Mass ratio]on 02-07-2024 Albumin DL <= 20 mg/L (U) [Mass/Vol] 219.8 mg/L Normal Not established [facility] Comment on above: Performed By: #### 1 4959-1 #### ALENA Paredes ([id number]) [facility] ([facility]) [address] [place] [address] Creatinine (U) [Mass/Vol] 99.2 mg/dL Normal 20.0-370.0 [facility] Comment on above: Performed By: #### 1 4959-1 #### ALENA Paredes ([id number]) [facility] ([facility]) [id number] [place] [address] Comprehensive metabolic 2000 panelon 02-07-2024 Albumin BCP dye [Mass/Vol] 4.0 g/dL Normal 3.4-5.0 [facility] Comment on above: Performed By: #### 2 4323-8 #### MAGGI PARNELL ([id number]) [facility] ([facility]) [facility] [place] [address] ALP [Catalytic activity/Vol] 77 U/L Normal 33-136 [facility] Comment on above: Performed By: #### 2 432-8 #### MAGGI PARNELL ([id number]) [facility] ([facility]) [address] [place] [address] 71680 ALT With P-5'-P [Catalytic activity/Vol] 7 U/L Low 10-52 [facility] Comment on above: Result Comment: Twila ents treated with Sulfasalazine may generate falsely decreased results for ALT. Performed By: #### 2 4323-8 #### MAGGI PARNELL ([id number]) [facility] ([facility]) [address] [place] [address] Anion gap [Moles/Vol] 12 mmol/L Normal 10-20 [facility] Comment on above: Performed By: #### 2 4323-8 #### MAGGI PARNELL ([id number]) [facility] ([facility]) [address] [place] [address] 61793 AST With P-5'-P [Catalytic activity/Vol] 14 U/L Normal 9-39 [facility] Comment on above: Performed By: #### 2 4323-8 #### MAGGI PARNELL ([id number]) [facility] ([facility]) [facility] [place] [address] Bilirubin [Mass/Vol] 0.4 mg/dL Normal 0.0-1.2 [facility] Comment on above: Performed By: #### 2 4323-8 #### MAGGI PARNELL ([id number]) [facility] ([facility]) [address] [place] [address] 30848 Calcium [Mass/Vol] 9.2 mg/dL Normal 8.6-10.3 [facility] Comment on above: Performed By: #### 2 4323-8 #### MAGGI PARNELL ([id number]) [facility] ([facility]) [facility] [place] [address] Chloride [Moles/Vol] 105 mmol/L Normal 98-107 [facility] Comment on above: Performed By: #### 2 4323-8 #### MAGGI PARNELL ([id number]) [facility] ([facility]) [address] [place] [address] 13091 CO2 [Moles/Vol] 29 mmol/L Normal 21-32 [facility] Comment on above: Performed By: #### 2 4323-8 #### MAGGI PARNELL ([id number]) [facility] ([facility]) [address] [place] [address] 87559 Creatinine [Mass/Vol] 1.92 mg/dL High 0.50-1.30 [facility] Comment on above: Performed By: #### 2 4323-8 #### MAGGI PARNELL ([id number]) [facility] ([facility]) [address] [place] [address] 16375 Glomerular filtration rate/1.73 sq M.predicted 35 mL/min/1.73m*2 Low >60 [facility] Comment on above: Result Comment: Calc ulations of estimated GFR are performed using the 2020 CKD-EPI Study Refit equation without the race variable for the IDMS-Traceable creatinine methods. https://jasn.asnjournals.org/content/early//ASN.20 94237514 Performed By: #### 2 4323-8 #### MAGGI PARNELL ([id number]) [facility] ([facility]) [address] [place] [address] 80493 Glucose [Mass/Vol] 81 mg/dL Normal 74-99 [facility] Comment on above: Performed By: #### 2 4323-8 #### MAGGI PARNELL ([id number]) [facility] ([facility]) [address] [place] [address] 70367 Potassium [Moles/Vol] 4.5 mmol/L Normal 3.5-5.3 [facility] Comment on above: Performed By: #### 2 4323-8 #### MAGGI PARNELL ([id number]) [facility] ([facility]) [address] [place] [address] Protein [Mass/Vol] 6.4 g/dL Normal 6.4-8.2 [facility] Comment on above: Performed By: #### 2 4323-8 #### MAGGI PARNELL ([id number]) [facility] ([facility]) [address] [place] [address] Sodium [Moles/Vol] 141 mmol/L Normal 136-145 [facility] Comment on above: Performed By: #### 2 4323-8 #### MAGGI PARNELL ([id number]) [facility] ([facility]) [address] [place] [address] Urea nitrogen [Mass/Vol] 29 mg/dL High 6-23 [facility] Comment on above: Performed By: #### 2 4323-8 #### MAGGI PARNELL ([id number]) [facility] ([facility]) [address] [place] [address] Basophil percentageOrdered B y: Ryley Jeter on 12-15-2023 Chloride [Moles/Vol] 109 mmol/L 98-107 [facility] Glucose [Mass/Vol] 126 mg/dL 74-106 [facility] Comment on above: Fasting Glucose resu lt greater than or equal to 126 mg/dL suggests DIABETES MELLITUS per A.D.A. criteria. Potassium [Moles/Vol] 4.1 mmol/L 3.5-5.1 [facility] Sodium [Moles/Vol] 140 mmol/L 136-145 [facility] - Chemistry and C hemistry - challengeOrdered By: Ryley Jeter on 12-15-2023 CO2 [Moles/Vol] 29.0 mmol/L 21.0-32.0 [facility] Urea nitrogen/Creatinine [Mass ratio] 14.9 mg/mg 10-20 [facility] No Panel InformationOrdered By: Ryley Jeter on 12-15-2023 Estimated GFR (MDRD) Amer 45 mL/min >60 [facility] Comment on above: GFR Calc Estimated GFR (MDRD) Non-Af Amer 37 mL/min >60 [facility] Comment on above: Non- GFR Calc Serum or plasma calcium nikkie urement (mass/volume)Ordered By: Ryley Jeter on 12-15-2023 Calcium [Mass/Vol] 9.4 mg/dL 8.5-10.1 [facility] Serum or plasma creatinine m easurement (mass/volume)Ordered By: Ryley Jeter on 12-15-2023 Creatinine [Mass/Vol] 1.88 mg/dL 0.70-1.30 [facility] Comment on above: The validity of the calculated GFR & GFRAA in patients over 70 years has not been determined. Clinical correlation is essential. Serum or plasma urea nitroge n measurement (mass/volume)Ordered By: Ryley Jeter on 12-15-2023 Urea nitrogen [Mass/Vol] 28 mg/dL 7-18 [facility] Thin prep Papanicolaou smear with manual screeningOrdered By: Ryley Jeter on 12-15-2023 Thin prep Papanicolaou smear with manual screening 2 5-15 [facility] APTTOrdered By: Burton lr on 12-01-2023 aPTT Coag (Bld) [Time] 35 s High [facility] Basic metabolic 2000 panelon 12-01-2023 Anion gap [Moles/Vol] 10 mmol/L 10 - 2 0 mmol/L [facility] Calcium [Mass/Vol] 8.9 mg/dL 8.4 - 10. 2 mg/dL [facility] Chloride [Moles/Vol] 105 mmol/L 98 - 10 8 mmol/L [facility] Creatinine [Mass/Vol] 1.76 mg/dL High 0.80 - 1.30 mg/dL [facility] GFR/1.73 sq M.predicted CKD-EPI (S/P/Bld) [Vol rate/Area] 39 Low - PINF [facility] Glucose [Mass/Vol] 82 mg/dL 65 - 99 mg/dL [facility] [Moles/Vol] 30 mmol/L 21 - 32 mmol/L [facility] Interpretation and review of laboratory results Abnormal [facility] Potassium [Moles/Vol] 3.4 mmol/L Low 3.5 - 5.1 mmol/L [facility] Sodium [Moles/Vol] 142 mmol/L 135 - 145 mmol/L [facility] Urea nitrogen [Mass/Vol] 26 mg/dL High 8 - 25 mg/d L [facility] Urea nitrogen/Creatinine [Mass ratio] 14.8 mg/mg 10.0 - 20.0 [facility] CBC Auto Differentialon 11-03 Basophils (Bld) [#/Vol] 0.06 10*3/uL [facility] Basophils/100 WBC (Bld) 0.7 % [facility] Eosinophils (Bld) [#/Vol] 0.61 10*3/uL High [facility] Eosinophils/100 WBC (Bld) 7.4 % [facility] Erythrocyte distribution width (RBC) [Entitic vol] 13.3 % 11.6 - 14.8 % [facility] Hematocrit (Bld) [Volume fraction] 36.6 % Low 41.0 - 53.0 % [facility] Hemoglobin (Bld) [Mass/Vol] 12.0 g/dL Low 13.5 - 17.5 g/dL [facility] Immature granulocytes (Bld) [#/Vol] 0.02 10*3/uL [facility] Immature granulocytes/100 WBC (Bld) 0.20 % [facility] Interpretation and review of laboratory results Abnormal [facility] Lymphocytes (Bld) [#/Vol] 1.32 10*3/uL [facility] Lymphocytes/100 WBC (Bld) 16.1 % [facility] MCH (RBC) [Entitic mass] 30.5 pg 26. 0 - 34.0 pg [facility] MCHC (RBC) [Mass/Vol] 32.8 g/dL 31.0 - 37.0 g/dL [facility] MCV (RBC) [Entitic vol] 92.9 fL 80.0 - 100.0 fL [facility] Monocytes (Bld) [#/Vol] 0.96 10*3/uL High [facility] Monocytes/100 WBC (Bld) 11.7 % [facility] Neutrophils (Bld) [#/Vol] 5.25 10*3/uL [facility] Neutrophils/100 WBC (Bld) 63.9 % [facility] Nucleated RBC (Bld) [#/Vol] 0.00 10*3/uL [facility] Nucleated RBC/100 WBC (Bld) [Ratio] 0.0 % [facility] Platelet mean volume (Bld) [Entitic vol] 12.4 fL 9.4 - 12.4 fL [facility] Platelets (Bld) [#/Vol] 115 10*3/uL Low [facility] RBC (Bld) [#/Vol] 3.94 10*6/uL [facility]alth WBC (Bld) [#/Vol] 8.22 10*3/uL [facility] Glucose (Bld) [Mass/Vol]on 0 12-01-2023 Glucose [Mass/Vol] 151 mg/dL High 65 - 99 mg/dL [facility] Interpretation and review of laboratory results Abnormal [facility] Glucose [Mass/Vol] 472 mg/dL Critically high 65 - 99 mg/d L [facility] Interpretation and review of laboratory results Abnormal [facility] Glucose [Mass/Vol] 454 mg/dL Critically high 65 - 99 mg/d L [facility] Interpretation and review of laboratory results Abnormal [facility] Glucose [Mass/Vol] 87 mg/dL 65 - 99 mg/dL [facility] Interpretation and review of laboratory results Normal [facility] Magnesium Levelon 12-01-2023 Magnesium [Mass/Vol] 2.1 mg/dL 1.6 - 2 .4 mg/dL [facility] Magnesium [Mass/Vol]on 12-01 Interpretation and review of laboratory results Normal [facility] aPTT Coag (Bld) [Time]Ordere d By: Burton Zendejas on 12-01-2023 Interpretation and review of laboratory results Abnormal [facility] APTTOrdered By: Zoila Marcano e on 11-30-2023 aPTT Coag (Bld) [Time] 35 s High [facility] Basic metabolic 2000 panelon 11-30-2023 Anion gap [Moles/Vol] 9 mmol/L Low 10 - 2 0 mmol/L [facility] Calcium [Mass/Vol] 8.6 mg/dL 8.4 - 10. 2 mg/dL [facility] Chloride [Moles/Vol] 104 mmol/L 98 - 10 8 mmol/L [facility] Creatinine [Mass/Vol] 1.77 mg/dL High 0.80 - 1.30 mg/dL [facility] GFR/1.73 sq M.predicted CKD-EPI (S/P/Bld) [Vol rate/Area] 39 Low - PINF [facility] Glucose [Mass/Vol] 322 mg/dL High 65 - 99 mg/dL [facility] HCO3 [Moles/Vol] 29 mmol/L 21 - 32 mmol/L [facility] Interpretation and review of laboratory results Abnormal [facility] Potassium [Moles/Vol] 3.8 mmol/L 3.5 - 5.1 mmol/L [facility] Sodium [Moles/Vol] 138 mmol/L 135 - 145 mmol/L [facility] Urea nitrogen [Mass/Vol] 30 mg/dL High 8 - 25 mg/d L [facility] Urea nitrogen/Creatinine [Mass ratio] 16.9 mg/mg 10.0 - 20.0 [facility] CBC Auto Differentialon 11-03 Basophils (Bld) [#/Vol] 0.08 10*3/uL [facility] Basophils/100 WBC (Bld) 0.9 % [facility] Eosinophils (Bld) [#/Vol] 0.71 10*3/uL High [facility] Eosinophils/100 WBC (Bld) 8.0 % [facility] Erythrocyte distribution width (RBC) [Entitic vol] 13.5 % 11.6 - 14.8 % [facility]th Hematocrit (Bld) [Volume fraction] 35.9 % Low 41.0 - 53.0 % [facility] Hemoglobin (Bld) [Mass/Vol] 11.8 g/dL Low 13.5 - 17.5 g/dL [facility] Immature granulocytes (Bld) [#/Vol] 0.03 10*3/uL [facility] Immature granulocytes/100 WBC (Bld) 0.30 % [facility] Interpretation and review of laboratory results Abnormal [facility] Lymphocytes (Bld) [#/Vol] 1.18 10*3/uL [facility] Lymphocytes/100 WBC (Bld) 13.3 % [facility] MCH (RBC) [Entitic mass] 30.5 pg 26. 0 - 34.0 pg [facility] MCHC (RBC) [Mass/Vol] 32.9 g/dL 31.0 - 37.0 g/dL [facility] MCV (RBC) [Entitic vol] 92.8 fL 80.0 - 100.0 fL [facility] Monocytes (Bld) [#/Vol] 0.84 10*3/uL [facility] Monocytes/100 WBC (Bld) 9.4 % [facility] Neutrophils (Bld) [#/Vol] 6.05 10*3/uL [facility] Neutrophils/100 WBC (Bld) 68.1 % [facility] Nucleated RBC (Bld) [#/Vol] 0.00 10*3/uL [facility] Nucleated RBC/100 WBC (Bld) [Ratio] 0.0 % [facility] Platelet mean volume (Bld) [Entitic vol] 12.1 fL 9.4 - 12.4 fL [facility] Platelets (Bld) [#/Vol] 120 10*3/uL Low [facility] RBC (Bld) [#/Vol] 3.87 10*6/uL [facility] WBC (Bld) [#/Vol] 8.89 10*3/uL [facility] e[facility] CT Chest WO contraston 11-30 Synbiota RIS Synbiota RIS [facility] CT Chest WO contrastOrdered By: Alice Kaminski on 11-30-2023 [facility] Work Phone: Echocardiogram completeon Aortic valve area 2.00825 cm [facility] AV mean gradient 3.69142 mmHg [facility] AV peak gradient 6.59153 mmHg [facility] EF 63.3016 % [facility] FUJI SYNAPSE CV [facility] Electrocardiogram, 12-leadon 11-30-2023 Atrial Rate 97 BPM [facility] P [place] 77 degrees [facility] P-R Interval 152 ms [facility] Q-T Interval 376 ms [facility] QRS Duration 76 ms [facility] QTC Calculation (Bezet) 477 ms [facility] R [place] 72 degrees [facility] T [place] 51 degrees [facility] Ventricular Rate 97 BPM [facility] MUSE [facility] Glucose (Bld) [Mass/Vol]on 0 11-30-2023 Glucose [Mass/Vol] 190 mg/dL High 65 - 99 mg/dL [facility] Interpretation and review of laboratory results Abnormal [facility] Glucose [Mass/Vol] 103 mg/dL High 65 - 99 mg/dL [facility] Interpretation and review of laboratory results Abnormal [facility] Magnesium Levelon 11-30-2023 Magnesium [Mass/Vol] 2.2 mg/dL 1.6 - 2 .4 mg/dL [facility] Magnesium [Mass/Vol]on 11-30 Interpretation and review of laboratory results Normal [facility] No Panel Informationon 11-30 [facility] aPTT Coag (Bld) [Time]Ordere d By: Zoila Ruiz on 11-30-2023 Interpretation and review of laboratory results Abnormal [facility] APTTon 11-29-2023 aPTT Coag (Bld) [Time] 38 s High [facility] APTT Heparin Coverageon 11-02 aPTT Coag (Bld) [Time] 98 s High [facility] Interpretation and review of laboratory results Abnormal [facility] APTT Heparin CoverageOrdered By: Tania Escobedo on 11-29-2023 aPTT Coag (Bld) [Time] Critically high [facility] Interpretation and review of laboratory results Abnormal [facility] Bacteria identified Aer cx N om (Sput)Ordered By: Franco Armenta on 11-29-2023 Microscopic observation Gram stain Nom (Sput) Few WBC [facility] Microscopic observation Gram stain Nom (Sput) Few Epithelial Cells [facility] Microscopic observation Gram stain Nom (Sput) Positive [facility] Microscopic observation Gram stain Nom (Sput) Rare Mixed [facility] Basic metabolic 2000 panelon 11-29-2023 Anion gap [Moles/Vol] 7 mmol/L Low 10 - 2 0 mmol/L [facility] Calcium [Mass/Vol] 8.4 mg/dL 8.4 - 10. 2 mg/dL [facility] Chloride [Moles/Vol] 106 mmol/L 98 - 10 8 mmol/L [facility] Creatinine [Mass/Vol] 1.91 mg/dL High 0.80 - 1.30 mg/dL [facility] GFR/1.73 sq M.predicted CKD-EPI (S/P/Bld) [Vol rate/Area] 35 Low - PINF [facility] Glucose [Mass/Vol] 234 mg/dL High 65 - 99 mg/dL [facility] HCO3 [Moles/Vol] 28 mmol/L 21 - 32 mmol/L [facility] Interpretation and review of laboratory results Abnormal [facility] Potassium [Moles/Vol] 4.0 mmol/L 3.5 - 5.1 mmol/L [facility] Sodium [Moles/Vol] 137 mmol/L 135 - 145 mmol/L [facility] Urea nitrogen [Mass/Vol] 34 mg/dL High 8 - 25 mg/d L [facility] Urea nitrogen/Creatinine [Mass ratio] 17.8 mg/mg 10.0 - 20.0 [facility] CBC Auto Differentialon 11-02 Basophils (Bld) [#/Vol] 0.10 10*3/uL [facility] Basophils/100 WBC (Bld) 0.9 % [facility] Eosinophils (Bld) [#/Vol] 0.48 10*3/uL [facility] Eosinophils/100 WBC (Bld) 4.4 % [facility] Erythrocyte distribution width (RBC) [Entitic vol] 14.0 % 11.6 - 14.8 % [facility] Hematocrit (Bld) [Volume fraction] 32.8 % Low 41.0 - 53.0 % [facility] Hemoglobin (Bld) [Mass/Vol] 10.7 g/dL Low 13.5 - 17.5 g/dL [facility] Immature granulocytes (Bld) [#/Vol] 0.05 10*3/uL [facility] Immature granulocytes/100 WBC (Bld) 0.50 % [facility] Interpretation and review of laboratory results Abnormal [facility] Lymphocytes (Bld) [#/Vol] 1.92 10*3/uL [facility] Lymphocytes/100 WBC (Bld) 17.7 % [facility] MCH (RBC) [Entitic mass] 30.6 pg 26. 0 - 34.0 pg [facility] MCHC (RBC) [Mass/Vol] 32.6 g/dL 31.0 - 37.0 g/dL [facility] MCV (RBC) [Entitic vol] 93.7 fL 80.0 - 100.0 fL [facility] Monocytes (Bld) [#/Vol] 1.02 10*3/uL High [facility] Monocytes/100 WBC (Bld) 9.4 % [facility] Neutrophils (Bld) [#/Vol] 7.26 10*3/uL High [facility] Neutrophils/100 WBC (Bld) 67.1 % [facility] Nucleated RBC (Bld) [#/Vol] 0.00 10*3/uL [facility] Nucleated RBC/100 WBC (Bld) [Ratio] 0.0 % [facility] Platelet mean volume (Bld) [Entitic vol] 12.1 fL 9.4 - 12.4 fL [facility] Platelets (Bld) [#/Vol] 130 10*3/uL Low [facility] RBC (Bld) [#/Vol] 3.50 10*6/uL [facility]alth WBC (Bld) [#/Vol] 10.83 10*3/uL [facility] CT Chest WO contraston 11-29 Radiology Study observation (narrative) [facility] Glucose (Bld) [Mass/Vol]on 0 11-29-2023 Glucose [Mass/Vol] 174 mg/dL High 65 - 99 mg/dL [facility] Interpretation and review of laboratory results Abnormal [facility] Glucose [Mass/Vol] 266 mg/dL High 65 - 99 mg/dL [facility] Interpretation and review of laboratory results Abnormal [facility] HbA1c (Bld) [Mass fraction]O rdered By: Lidia Ruff on 11-29-2023 Average glucose Estimated from glycated hemoglobin (Bld) [Mass/Vol] 174 mg/dL High 68 - 114 mg/dL [facility] Interpretation and review of laboratory results Abnormal [facility] Hemoglobin [id number] By: Davina Ruff on 11-29-2023 HbA1c (Bld) [Mass fraction] 7.7 % High 4.0 - 5.6 % [facility] Magnesium Levelon 11-29-2023 Magnesium [Mass/Vol] 2.2 mg/dL 1.6 - 2 .4 mg/dL [facility] Magnesium [Mass/Vol]on 11-29 Interpretation and review of laboratory results Normal [facility] No Panel Informationon 11-29 [facility] Sputum Aerobic CultureOrdere d By: Franco Armenta on 11-29-2023 Bacteria identified Aer cx Nom (Sput) Normal [place] After 48 Hours [facility] aPTT Coag (Bld) [Time]on Interpretation and review of laboratory results Abnormal [facility] APTTon 11-28-2023 aPTT Coag (Bld) [Time] 102 s High [facility] Basic metabolic 2000 panelon 11-28-2023 Anion gap [Moles/Vol] 13 mmol/L 10 - 2 0 mmol/L [facility] Calcium [Mass/Vol] 9.0 mg/dL 8.4 - 10. 2 mg/dL [facility] Chloride [Moles/Vol] 110 mmol/L High 98 - 10 8 mmol/L [facility] Creatinine [Mass/Vol] 1.99 mg/dL High 0.80 - 1.30 mg/dL [facility] GFR/1.73 sq M.predicted CKD-EPI (S/P/Bld) [Vol rate/Area] 34 Low - PINF [facility] Glucose [Mass/Vol] 183 mg/dL High 65 - 99 mg/dL [facility] HCO3 [Moles/Vol] 23 mmol/L 21 - 32 mmol/L [facility] Interpretation and review of laboratory results Abnormal [facility] Potassium [Moles/Vol] 4.3 mmol/L 3.5 - 5.1 mmol/L [facility] Sodium [Moles/Vol] 142 mmol/L 135 - 145 mmol/L [facility] Urea nitrogen [Mass/Vol] 33 mg/dL High 8 - 25 mg/d L [facility] Urea nitrogen/Creatinine [Mass ratio] 16.6 mg/mg 10.0 - 20.0 [facility] Anion gap [Moles/Vol] 9 mmol/L Low 10 - 2 0 mmol/L [facility] Calcium [Mass/Vol] 8.8 mg/dL 8.4 - 10. 2 mg/dL [facility] Chloride [Moles/Vol] 111 mmol/L High 98 - 10 8 mmol/L [facility] Creatinine [Mass/Vol] 2.03 mg/dL High 0.80 - 1.30 mg/dL [facility] GFR/1.73 sq M.predicted CKD-EPI (S/P/Bld) [Vol rate/Area] 33 Low - PINF [facility] Glucose [Mass/Vol] 160 mg/dL High 65 - 99 mg/dL [facility] HCO3 [Moles/Vol] 27 mmol/L 21 - 32 mmol/L [facility] Interpretation and review of laboratory results Abnormal [facility] Potassium [Moles/Vol] 4.3 mmol/L 3.5 - 5.1 mmol/L [facility] Sodium [Moles/Vol] 143 mmol/L 135 - 145 mmol/L [facility] Urea nitrogen [Mass/Vol] 34 mg/dL High 8 - 25 mg/d L [facility] Urea nitrogen/Creatinine [Mass ratio] 16.7 mg/mg 10.0 - 20.0 [facility] Anion gap [Moles/Vol] 10 mmol/L 10 - 2 0 mmol/L [facility] Calcium [Mass/Vol] 8.7 mg/dL 8.4 - 10. 2 mg/dL [facility] Chloride [Moles/Vol] 112 mmol/L High 98 - 10 8 mmol/L [facility] Creatinine [Mass/Vol] 2.03 mg/dL High 0.80 - 1.30 mg/dL [facility] GFR/1.73 sq M.predicted CKD-EPI (S/P/Bld) [Vol rate/Area] 33 Low - PINF [facility] Glucose [Mass/Vol] 119 mg/dL High 65 - 99 mg/dL [facility] HCO3 [Moles/Vol] 24 mmol/L 21 - 32 mmol/L [facility] Interpretation and review of laboratory results Abnormal [facility] Potassium [Moles/Vol] 3.9 mmol/L 3.5 - 5.1 mmol/L [facility] Sodium [Moles/Vol] 142 mmol/L 135 - 145 mmol/L [facility] Urea nitrogen [Mass/Vol] 35 mg/dL High 8 - 25 mg/d L [facility] Urea nitrogen/Creatinine [Mass ratio] 17.2 mg/mg 10.0 - 20.0 [facility] Beta hydroxybutyrate [Moles/ Vol]on 11-28-2023 Interpretation and review of laboratory results Abnormal [facility] Interpretation and review of laboratory results Abnormal [facility] Beta-Hydroxybutyrateon 11-28 Beta hydroxybutyrate [Moles/Vol] 0.8 mmol/L High 0.0 - 0.3 mmol/L [facility] Beta hydroxybutyrate [Moles/Vol] 0.4 mmol/L High 0.0 - 0.3 mmol/L [facility] Beta hydroxybutyrate [Moles/Vol] 0.6 mmol/L High 0.0 - 0.3 mmol/L [facility] CBC Auto Differentialon 11-02 Basophils (Bld) [#/Vol] 0.07 10*3/uL [facility] Basophils/100 WBC (Bld) 0.5 % [facility] Eosinophils (Bld) [#/Vol] 0.09 10*3/uL [facility] Eosinophils/100 WBC (Bld) 0.6 % [facility] Erythrocyte distribution width (RBC) [Entitic vol] 14.3 % 11.6 - 14.8 % [facility] alth Hematocrit (Bld) [Volume fraction] 33.6 % Low 41.0 - 53.0 % [facility] Hemoglobin (Bld) [Mass/Vol] 10.8 g/dL Low 13.5 - 17.5 g/dL [facility] Immature granulocytes (Bld) [#/Vol] 0.05 10*3/uL [facility] Immature granulocytes/100 WBC (Bld) 0.40 % [facility] Interpretation and review of laboratory results Abnormal [facility] Lymphocytes (Bld) [#/Vol] 2.69 10*3/uL [facility] Lymphocytes/100 WBC (Bld) 18.9 % [facility] MCH (RBC) [Entitic mass] 30.4 pg 26. 0 - 34.0 pg [facility] MCHC (RBC) [Mass/Vol] 32.1 g/dL 31.0 - 37.0 g/dL [facility] MCV (RBC) [Entitic vol] 94.6 fL 80.0 - 100.0 fL [facility] Monocytes (Bld) [#/Vol] 1.26 10*3/uL High [facility] Monocytes/100 WBC (Bld) 8.9 % [facility] Neutrophils (Bld) [#/Vol] 10.06 10*3/uL High [facility] Neutrophils/100 WBC (Bld) 70.7 % [facility] Nucleated RBC (Bld) [#/Vol] 0.00 10*3/uL [facility] Nucleated RBC/100 WBC (Bld) [Ratio] 0.0 % [facility] Platelet mean volume (Bld) [Entitic vol] 11.9 fL 9.4 - 12.4 fL [facility] Platelets (Bld) [#/Vol] 151 10*3/uL [facility] RBC (Bld) [#/Vol] 3.55 10*6/uL [facility] ealth WBC (Bld) [#/Vol] 14.22 10*3/uL High [facility] CRP [Mass/Vol]on 11-28-2023 Interpretation and review of laboratory results Abnormal [facility] CRP, Inflammationon 11-28-19 CRP [Mass/Vol] 11.6 mg/L High [facility] - 10.0 mg/L [facility] D-Dimer, Quantitativeon 11-02 Fibrin D-dimer FEU (PPP) [Mass/Vol] 1.32 High [facility] Interpretation and review of laboratory results Abnormal [facility] Glucose (Bld) [Mass/Vol]on 0 11-28-2023 Glucose [Mass/Vol] 222 mg/dL High 65 - 99 mg/dL [facility] Interpretation and review of laboratory results Abnormal [facility] Glucose [Mass/Vol] 182 mg/dL High 65 - 99 mg/dL [facility] Interpretation and review of laboratory results Abnormal [facility] Glucose [Mass/Vol] 286 mg/dL High 65 - 99 mg/dL [facility] Interpretation and review of laboratory results Abnormal [facility] Glucose [Mass/Vol] 209 mg/dL High 65 - 99 mg/dL [facility] Interpretation and review of laboratory results Abnormal [facility] Glucose [Mass/Vol] 167 mg/dL High 65 - 99 mg/dL [facility] Interpretation and review of laboratory results Abnormal [facility] LDHon 11-28-2023 LDH Lactate to pyruvate reaction [Catalytic activity/Vol] 299 U/L High 100 - 250 U/L [facility] Magnesium Levelon 11-28-2023 Magnesium [Mass/Vol] 2.5 mg/dL High 1.6 - 2 .4 mg/dL [facility] Magnesium [Mass/Vol] 2.6 mg/dL High 1.6 - 2 .4 mg/dL [facility] Magnesium [Mass/Vol] 2.2 mg/dL 1.6 - 2 .4 mg/dL [facility] Magnesium [Mass/Vol]on 11-28 Interpretation and review of laboratory results Abnormal [facility] Interpretation and review of laboratory results Abnormal [facility] Interpretation and review of laboratory results Normal [facility] No Panel Informationon 11-28 Interpretation and review of laboratory results Abnormal [facility] Phosphate [Mass/Vol]on 11-28 Interpretation and review of laboratory results Normal [facility] Interpretation and review of laboratory results Abnormal [facility] Interpretation and review of laboratory results Abnormal [facility] Phosphoruson 11-28-2023 Phosphate [Mass/Vol] 3.6 mg/dL 2.3 - 3 .7 mg/dL [facility] Phosphate [Mass/Vol] 3.8 mg/dL High 2.3 - 3 .7 mg/dL [facility] Phosphate [Mass/Vol] 3.8 mg/dL High 2.3 - 3 .7 mg/dL [facility] aPTT Coag (Bld) [Time]on Interpretation and review of laboratory results Abnormal [facility] APTTOrdered By: Becky Mercado on 11-27-2023 aPTT Coag (Bld) [Time] 78 s High [facility] APTTOrdered By: Ajnali Hartmann on 11-27-2023 aPTT Coag (Bld) [Time] 66 s High [facility] APTT Heparin CoverageOrdered By: Yesenia Cardona on 11-27-2023 aPTT Coag (Bld) [Time] 87 s High [facility] Interpretation and review of laboratory results Abnormal [facility] Basic metabolic 2000 panelon 11-27-2023 Anion gap [Moles/Vol] 9 mmol/L Low 10 - 2 0 mmol/L [facility] Calcium [Mass/Vol] 8.7 mg/dL 8.4 - 10. 2 mg/dL [facility] Chloride [Moles/Vol] 113 mmol/L High 98 - 10 8 mmol/L [facility] Creatinine [Mass/Vol] 2.24 mg/dL High 0.80 - 1.30 mg/dL [facility] GFR/1.73 sq M.predicted CKD-EPI (S/P/Bld) [Vol rate/Area] 29 Low - PINF [facility] Glucose [Mass/Vol] 168 mg/dL High 65 - 99 mg/dL [facility] HCO3 [Moles/Vol] 25 mmol/L 21 - 32 mmol/L [facility] Interpretation and review of laboratory results Abnormal [facility] Potassium [Moles/Vol] 3.7 mmol/L 3.5 - 5.1 mmol/L [facility] Sodium [Moles/Vol] 143 mmol/L 135 - 145 mmol/L [facility] Urea nitrogen [Mass/Vol] 37 mg/dL High 8 - 25 mg/d L [facility] Urea nitrogen/Creatinine [Mass ratio] 16.5 mg/mg 10.0 - 20.0 [facility] Anion gap [Moles/Vol] 9 mmol/L Low 10 - 2 0 mmol/L [facility] Calcium [Mass/Vol] 9.0 mg/dL 8.4 - 10. 2 mg/dL [facility] Chloride [Moles/Vol] 113 mmol/L High 98 - 10 8 mmol/L [facility] Creatinine [Mass/Vol] 2.24 mg/dL High 0.80 - 1.30 mg/dL [facility] GFR/1.73 sq M.predicted CKD-EPI (S/P/Bld) [Vol rate/Area] 29 Low - PINF [facility] Glucose [Mass/Vol] 153 mg/dL High 65 - 99 mg/dL [facility] HCO3 [Moles/Vol] 24 mmol/L 21 - 32 mmol/L [facility] Interpretation and review of laboratory results Abnormal [facility] Potassium [Moles/Vol] 4.0 mmol/L 3.5 - 5.1 mmol/L [facility] Sodium [Moles/Vol] 142 mmol/L 135 - 145 mmol/L [facility] Urea nitrogen [Mass/Vol] 39 mg/dL High 8 - 25 mg/d L [facility] Urea nitrogen/Creatinine [Mass ratio] 17.4 mg/mg 10.0 - 20.0 [facility] Anion gap [Moles/Vol] 13 mmol/L 10 - 2 0 mmol/L [facility] Calcium [Mass/Vol] 9.3 mg/dL 8.4 - 10. 2 mg/dL [facility] Chloride [Moles/Vol] 112 mmol/L High 98 - 10 8 mmol/L [facility] Creatinine [Mass/Vol] 2.26 mg/dL High 0.80 - 1.30 mg/dL [facility] GFR/1.73 sq M.predicted CKD-EPI (S/P/Bld) [Vol rate/Area] 29 Low - PINF [facility] Glucose [Mass/Vol] 114 mg/dL High 65 - 99 mg/dL [facility] HCO3 [Moles/Vol] 23 mmol/L 21 - 32 mmol/L [facility] Interpretation and review of laboratory results Abnormal [facility] Potassium [Moles/Vol] 3.7 mmol/L 3.5 - 5.1 mmol/L [facility] Sodium [Moles/Vol] 144 mmol/L 135 - 145 mmol/L [facility] Urea nitrogen [Mass/Vol] 42 mg/dL High 8 - 25 mg/d L [facility] Urea nitrogen/Creatinine [Mass ratio] 18.6 mg/mg 10.0 - 20.0 [facility] Anion gap [Moles/Vol] 13 mmol/L 10 - 2 0 mmol/L [facility] Calcium [Mass/Vol] 9.2 mg/dL 8.4 - 10. 2 mg/dL [facility] Chloride [Moles/Vol] 111 mmol/L High 98 - 10 8 mmol/L [facility] Creatinine [Mass/Vol] 2.35 mg/dL High 0.80 - 1.30 mg/dL [facility] GFR/1.73 sq M.predicted CKD-EPI (S/P/Bld) [Vol rate/Area] 27 Low - PINF [facility] Glucose [Mass/Vol] 340 mg/dL High 65 - 99 mg/dL [facility] HCO3 [Moles/Vol] 21 mmol/L 21 - 32 mmol/L [facility] Interpretation and review of laboratory results Abnormal [facility] Potassium [Moles/Vol] 3.4 mmol/L Low 3.5 - 5.1 mmol/L [facility] Sodium [Moles/Vol] 142 mmol/L 135 - 145 mmol/L [facility] Urea nitrogen [Mass/Vol] 42 mg/dL High 8 - 25 mg/d L [facility] Urea nitrogen/Creatinine [Mass ratio] 17.9 mg/mg 10.0 - 20.0 [facility] Basic metabolic 2000 panelOr dered By: Moody Hughes on 11-27-2023 Anion gap [Moles/Vol] 13 mmol/L 10 - 2 0 mmol/L [facility] Calcium [Mass/Vol] 8.9 mg/dL 8.4 - 10. 2 mg/dL [facility] Chloride [Moles/Vol] 107 mmol/L 98 - 10 8 mmol/L [facility] Creatinine [Mass/Vol] 2.24 mg/dL High 0.80 - 1.30 mg/dL [facility] GFR/1.73 sq M.predicted CKD-EPI (S/P/Bld) [Vol rate/Area] 29 Low - PINF [facility] Glucose [Mass/Vol] 523 mg/dL Critically high 65 - 99 mg/d L [facility] HCO3 [Moles/Vol] 21 mmol/L 21 - 32 mmol/L [facility] Interpretation and review of laboratory results Abnormal [facility] Potassium [Moles/Vol] 4.6 mmol/L 3.5 - 5.1 mmol/L [facility] Sodium [Moles/Vol] 136 mmol/L 135 - 145 mmol/L [facility] Urea nitrogen [Mass/Vol] 42 mg/dL High 8 - 25 mg/d L [facility] Urea nitrogen/Creatinine [Mass ratio] 18.8 mg/mg 10.0 - 20.0 [facility] Beta hydroxybutyrate [Moles/ Vol]on 11-27-2023 Interpretation and review of laboratory results Normal [facility] Interpretation and review of laboratory results Normal [facility] Interpretation and review of laboratory results Normal [facility] Interpretation and review of laboratory results Normal [facility] Beta-Hydroxybutyrateon 11-27 Beta hydroxybutyrate [Moles/Vol] mmol/L 0.0 - 0.3 mmol/L [facility] Beta hydroxybutyrate [Moles/Vol] 0.2 mmol/L 0.0 - 0.3 mmol/L [facility] Beta hydroxybutyrate [Moles/Vol] mmol/L 0.0 - 0.3 mmol/L [facility] Beta hydroxybutyrate [Moles/Vol] 0.2 mmol/L 0.0 - 0.3 mmol/L [facility] Beta hydroxybutyrate [Moles/Vol] 1.9 mmol/L High 0.0 - 0.3 mmol/L [facility] CBC Auto Differentialon 11-02 Basophils (Bld) [#/Vol] 0.04 10*3/uL [facility] Basophils/100 WBC (Bld) 0.2 % [facility] Eosinophils (Bld) [#/Vol] 0.00 10*3/uL [facility] Eosinophils/100 WBC (Bld) 0.0 % [facility] Erythrocyte distribution width (RBC) [Entitic vol] 14.0 % 11.6 - 14.8 % [facility] alth Hematocrit (Bld) [Volume fraction] 34.0 % Low 41.0 - 53.0 % [facility] Hemoglobin (Bld) [Mass/Vol] 11.1 g/dL Low 13.5 - 17.5 g/dL [facility] Immature granulocytes (Bld) [#/Vol] 0.11 10*3/uL [facility] Immature granulocytes/100 WBC (Bld) 0.50 % [facility] Interpretation and review of laboratory results Abnormal [facility] Lymphocytes (Bld) [#/Vol] 0.91 10*3/uL [facility] Lymphocytes/100 WBC (Bld) 3.8 % [facility] MCH (RBC) [Entitic mass] 30.9 pg 26. 0 - 34.0 pg [facility] MCHC (RBC) [Mass/Vol] 32.6 g/dL 31.0 - 37.0 g/dL [facility] MCV (RBC) [Entitic vol] 94.7 fL 80.0 - 100.0 fL [facility] Monocytes (Bld) [#/Vol] 1.21 10*3/uL High [facility] Monocytes/100 WBC (Bld) 5.1 % [facility] [#/Vol] 21.42 10*3/uL High [facility] Neutrophils/100 WBC (Bld) 90.4 % [facility] Nucleated RBC (Bld) [#/Vol] 0.00 10*3/uL [facility] Nucleated RBC/100 WBC (Bld) [Ratio] 0.0 % [facility] Platelet mean volume (Bld) [Entitic vol] 11.9 fL 9.4 - 12.4 fL [facility] Platelets (Bld) [#/Vol] 220 10*3/uL [facility] RBC (Bld) [#/Vol] 3.59 10*6/uL [facility] ealth WBC (Bld) [#/Vol] 23.69 10*3/uL [facility] CRP [Mass/Vol]on 11-27-2023 Interpretation and review of laboratory results Normal [facility] CRP, Inflammationon 11-27-19 24 CRP [Mass/Vol] mg/L NINF - 10.0 mg/L [facility] Clostridium difficile Testin gOrdered By: Nina Martinez on 11-27-2023 C. difficile Interpretation Negative [facility] Specimen Acceptability Acceptable [facility] ESR Westergren method (Bld) [Velocity]on 11-27-2023 ESR (Bld) [Velocity] 21 mm/h [facility] Interpretation and review of laboratory results Abnormal [facility] Glucose (Bld) [Mass/Vol]on 0 11-27-2023 Glucose [Mass/Vol] 85 mg/dL 65 - 99 mg/dL [facility] Interpretation and review of laboratory results Normal [facility] Glucose [Mass/Vol] 106 mg/dL High 65 - 99 mg/dL [facility] Interpretation and review of laboratory results Abnormal [facility] Glucose [Mass/Vol] 179 mg/dL High 65 - 99 mg/dL [facility] Interpretation and review of laboratory results Abnormal [facility] Glucose [Mass/Vol] 255 mg/dL High 65 - 99 mg/dL [facility] Interpretation and review of laboratory results Abnormal [facility] Glucose [Mass/Vol] 252 mg/dL High 65 - 99 [facility] Interpret[facility] and review of laboratory results Abnormal [facility] Glucose [Mass/Vol] 145 mg/dL High 65 - 99 mg/dL [facility] Interpretation and review of laboratory results Abnormal [facility] Glucose [Mass/Vol] 155 mg/dL High 65 - 99 mg/dL [facility] Interpretation and review of laboratory results Abnormal [facility] Glucose [Mass/Vol] 155 mg/dL High 65 - 99 mg/dL [facility] Interpretation and review of laboratory results Abnormal [facility] Glucose [Mass/Vol] 143 mg/dL High 65 - 99 mg/dL [facility] Interpretation and review of laboratory results Abnormal [facility] Glucose [Mass/Vol] 123 mg/dL High 65 - 99 mg/dL [facility] Interpretation and review of laboratory results Abnormal [facility] Glucose [Mass/Vol] 132 mg/dL High 65 - 99 mg/dL [facility] Interpretation and review of laboratory results Abnormal [facility] Glucose [Mass/Vol] 202 mg/dL High 65 - 99 mg/dL [facility] Interpretation and review of laboratory results Abnormal [facility] Glucose [Mass/Vol] 318 mg/dL High 65 - 99 mg/dL [facility] Interpretation and review of laboratory results Abnormal [facility] Glucose [Mass/Vol] 365 mg/dL High 65 - 99 mg/dL [facility] Interpretation and review of laboratory results Abnormal [facility] Glucose [Mass/Vol] 453 mg/dL Critically high 65 - 99 mg/d L [facility] Interpretation and review of laboratory results Abnormal [facility] Glucose [Mass/Vol] mg/dL Critically high 65 - 99 mg/d L [facility] Interpretation and review of laboratory results Abnormal [facility] Glucose [Mass/Vol] mg/dL Critically high 65 - 99 mg/d L [facility] Interpretation and review of laboratory results Abnormal [facility] Glucose [Mass/Vol] 498 mg/dL Critically high 65 - 99 mg/d L [facility] Interpretation and review of laboratory results Abnormal [facility] [place] 11-27-2023 Extra Tube Hold for add-ons. [facility] Comment on above: Auto resulted. [facility] HbA1c (Bld) [Mass fraction]O rdered By: Brent Carrillo on 11-27-2023 Average glucose Estimated from glycated hemoglobin (Bld) [Mass/Vol] 169 mg/dL High 68 - 114 mg/dL [facility] Interpretation and review of laboratory results Abnormal [facility] Hemoglobin [id number] By: Damaris Carrillo on 11-27-2023 HbA1c (Bld) [Mass fraction] 7.5 % High 4.0 - 5.6 % [facility] Hepatic function 2000 panelo n 11-27-2023 Albumin [Mass/Vol] 3.4 g/dL 3.2 - 5.2 g/dL [facility] ALP [Catalytic activity/Vol] 97 U/L 40 - 150 U/L [facility] ALT [Catalytic activity/Vol] 47 U/L 14 - 65 U/L [facility] AST [Catalytic activity/Vol] 74 U/L High 0-50 U/L [facility] Bilirubin [Mass/Vol] 0.7 mg/dL 0.0 - 1 .3 mg/dL [facility] Bilirubin.conjugated [Mass/Vol] 0.2 mg/dL 0.0 - 0.4 mg/dL [facility] Protein [Mass/Vol] 6.3 g/dL 6.0 - 8.0 g/dL [facility] Influenza virus A and B RNA and SARS-CoV-2 (COVID-19) N gene panel ALICE+probe (Resp)Ordered By: Esthela Albright on 11-27-2023 FLUAV RNA ALICE+probe Ql (Unsp spec) Not detected Not Detected [facility] FLUBV RNA ALICE+probe Ql (Unsp spec) Not detected Not Detected [facility] Interpretation and review of laboratory results Abnormal [facility] SARS-CoV-2 (COVID-19) RNA ALICE+probe Ql (Resp) Detected Abnormal Not Detected [facility] Lactate [Moles/Vol]on 2023 Interpretation and review of laboratory results Abnormal [facility] Interpretation and review of laboratory results Normal [facility] Lactic Acid, Plasmaon 2023 Lactate [Moles/Vol] 2.8 mmol/L High 0.6 - 2. 0 mmol/L [facility] Lactate [Moles/Vol] 2.0 mmol/L 0.6 - 2. 0 mmol/L [facility] Legionella Antigen, Urineon 11-27-2023 Interpretation and review of laboratory results Normal [facility] L. pneumophila Ag Ql (U) Negative Neg ative for Legionella antigen [facility] Lipid 1996 panelon Cholesterol [Mass/Vol] 130 mg/dL 100 - 199 mg/dL [facility] Cholesterol in HDL [Mass/Vol] 56 mg/dL 40 - 59 mg/dL [facility] Cholesterol in LDL [Mass/Vol] 61 mg/dL 10 - 130 mg/dL [facility] Cholesterol non HDL [Mass/Vol] 74 mg/dL [facility] Cholesterol.total/Cholest santos in HDL [Mass ratio] 2.3 {ratio} ratio [facility] Triglyceride [Mass/Vol] 67 mg/dL 30 - 150 mg/dL [facility] MRSA DNA Amplified Probeon 0 11-27-2023 MRSA DNA ALICE+probe Ql (Unsp spec) Negative Not Detected, MRSA NEGATIVE [facility] MRSA DNA ALICE+probe Ql (Unsp spec)on 11-27-2023 Interpretation and review of laboratory results Normal [facility] Magnesium Levelon 11-27-2023 Magnesium [Mass/Vol] 1.9 mg/dL 1.6 - 2 .4 mg/dL [facility] Magnesium [Mass/Vol] 2.2 mg/dL 1.6 - 2 .4 mg/dL [facility] Magnesium [Mass/Vol] 2.1 mg/dL 1.6 - 2 .4 mg/dL [facility] Magnesium [Mass/Vol] 2.1 mg/dL 1.6 - 2 .4 mg/dL [facility] Magnesium [Mass/Vol] 2.2 mg/dL 1.6 - 2 .4 mg/dL [facility] Magnesium [Mass/Vol]on 11-27 Interpretation and review of laboratory results Normal [facility] Interpretation and review of laboratory results Normal [facility] Interpretation and review of laboratory results Normal [facility] Interpretation and review of laboratory results Normal [facility] Interpretation and review of laboratory results Normal [facility] NT Pro BNPon 11-27-2023 Natriuretic peptide.B prohormone N-Terminal [Mass/Vol] 03199 pg/mL High 0 - 300 pg/mL [facility] Natriuretic peptide.B prohor katja N-Terminal [Mass/Vol]on 11-27-2023 Interpretation and review of laboratory results Abnormal [facility] No Panel Informationon 11-27 [facility] Interpretation and review of laboratory results Abnormal [facility] Obtain venous blood gases an d performon 11-27-2023 [facility] POC Arterial Blood Gas Panel -Pulmon 11-27-2023 Alveolar-arterial oxygen Partial pressure difference 85.4 mm Hg [facility] Base excess Calc (Bld) [Moles/Vol] -7.1000 mmol/L Low -2.0 - 2.0 [facility] Calcium.ionized [Mass/Vol] 4.7 mg/dL 4.5 - 5.3 mg/dL [facility] Carboxyhemoglobin (BldA) [Mass fraction] 1.3 NINF [facility] Chloride [Moles/Vol] 107 mmol/L 98 - 10 8 mmol/L [facility] CO2 (Bld) [Partial pressure] 31.7 mm[Hg] Low [facility] Glucose post fast [Mass/Vol] 543 mg/dL Critically high 65 - 99 mg/dL [facility] HCO3 (Bld) [Moles/Vol] 17.5 mmol/L Low 22.0 - 26.0 mmol/L [facility] Hematocrit (BldA) [Volume fraction] 37.9 % Low 41.0 - 53.0 % [facility] Hemoglobin (Bld) [Mass/Vol] 12.4 g/dL Low 13.5 - 17.5 g/dL [facility] Inhaled oxygen concentration 30 % [facility] Interpretation and review of laboratory results Abnormal [facility] Lactate [Moles/Vol] 1.7 mmol/L 0.6 - 2. 0 mmol/L [facility] Methemoglobin (BldA) [Mass fraction] % 0.0 - 2.0 % [facility] Oxygen (Bld) [Partial pressure] 84 mm[Hg] [facility] Oxyhemoglobin (BldA) [Mass fraction] 94.5 % 94.0 - 98.0 % [facility] pH (Bld) 7.35 [pH] 7.35 - 7.45 [facility] Potassium [Moles/Vol] 4.6 mmol/L 3.5 - 5.1 mmol/L [facility] Sodium [Moles/Vol] 138 mmol/L 135 - 145 mmol/L [facility] Specimen source Nom (Unsp spec) Radial, right [facility] POC Venous Blood Gas Panel-P ulmon 11-27-2023 Base excess Calc (BldV) [Moles/Vol] -8.4000 mmol/L Low -2.0 - 2.0 [facility] Calcium.ionized [Mass/Vol] 4.4 mg/dL Low 4.5 - 5.3 mg/dL [facility] Carboxyhemoglobin (BldA) [Mass fraction] 2.9 High [facility] Chloride [Moles/Vol] 108 mmol/L 98 - 10 8 mmol/L [facility] CO2 (BldV) [Partial pressure] 26.6 mm[Hg] Low [facility] Glucose post fast [Mass/Vol] 544 mg/dL Critically high 65 - 99 mg/dL [facility] HCO3 (Bld) [Moles/Vol] 15.4 mmol/L Low 24.0 - 28.0 mmol/L [facility] Hematocrit (BldA) [Volume fraction] 36.5 % Low 41.0 - 53.0 % [facility] Hemoglobin (Bld) [Mass/Vol] 11.9 g/dL Low 13.5 - 17.5 g/dL [facility] Inhaled oxygen concentration 30 % [facility] Interpretation and review of laboratory results Abnormal [facility] Lactate [Moles/Vol] 2.5 mmol/L High 0.6 - 2. 0 mmol/L [facility] Methemoglobin (BldA) [Mass fraction] % 0.0 - 2.0 % [facility] Oxygen (BldV) [Partial pressure] 140 mm[Hg] High [facility] Oxygen saturation in Venous blood 99.4 % High 40.0 - 70.0 % [facility] Oxyhemoglobin (BldA) [Mass fraction] 96.3 % No established reference range [facility] pH (BldV) 7.37 [pH] 7.32 - 7.42 [facility] Potassium [Moles/Vol] 4.0 mmol/L 3.5 - 5.1 mmol/L [facility] Sodium [Moles/Vol] 138 mmol/L 135 - 145 mmol/L [facility] Specimen source Nom (Unsp spec) Not specified [facility] Base excess Calc (BldV) [Moles/Vol] -5.8000 mmol/L Low -2.0 - 2.0 [facility] Calcium.ionized [Mass/Vol] 4.7 mg/dL 4.5 - 5.3 mg/dL [facility] Carboxyhemoglobin (BldA) [Mass fraction] 2.9 High [facility] Chloride [Moles/Vol] 107 mmol/L 98 - 10 8 mmol/L [facility] CO2 (BldV) [Partial pressure] 34.1 mm[Hg] Low [facility] Glucose post fast [Mass/Vol] 493 mg/dL Critically high 65 - 99 mg/dL [facility] HCO3 (Bld) [Moles/Vol] 19.0 mmol/L Low 24.0 - 28.0 mmol/L [facility] Hematocrit (BldA) [Volume fraction] 35.4 % Low 41.0 - 53.0 % [facility] Hemoglobin (Bld) [Mass/Vol] 11.5 g/dL Low 13.5 - 17.5 g/dL [facility] Inhaled oxygen concentration 28 % [facility] Inhaled oxygen flow rate 2 L/min [facility] Interpretation and review of laboratory results Abnormal [facility] Lactate [Moles/Vol] 1.8 mmol/L 0.6 - 2. 0 mmol/L [facility] Methemoglobin (BldA) [Mass fraction] % 0.0 - 2.0 % [facility] Oxygen (BldV) [Partial pressure] 63 mm[Hg] High [facility] Oxygen saturation in Venous blood 91.7 % High 40.0 - 70.0 % [facility] Oxyhemoglobin (BldA) [Mass fraction] 88.7 % No established reference range [facility] pH (BldV) 7.36 [pH] 7.32 - 7.42 [facility] Potassium [Moles/Vol] 4.7 mmol/L 3.5 - 5.1 mmol/L [facility] Sodium [Moles/Vol] 138 mmol/L 135 - 145 mmol/L [facility] Specimen source Nom (Unsp spec) Not specified [facility] Phosphate [Mass/Vol]on 11-27 Interpretation and review of laboratory results Normal [facility] Interpretation and review of laboratory results Abnormal [facility] Interpretation and review of laboratory results Normal [facility] Interpretation and review of laboratory results Normal [facility] Interpretation and review of laboratory results Abnormal [facility] Phosphoruson 11-27-2023 Phosphate [Mass/Vol] 2.6 mg/dL 2.3 - 3 .7 mg/dL [facility] Phosphate [Mass/Vol] 4.1 mg/dL High 2.3 - 3 .7 mg/dL [facility] Phosphate [Mass/Vol] 3.0 mg/dL 2.3 - 3 .7 mg/dL [facility] Phosphate [Mass/Vol] 2.3 mg/dL 2.3 - 3 .7 mg/dL [facility] Phosphate [Mass/Vol] 4.1 mg/dL High 2.3 - 3 .7 mg/dL [facility] Reflex Lactic Acid, Plasmaon 11-27-2023 Interpretation and review of laboratory results Normal [facility] Lactate [Moles/Vol] 2.0 mmol/L 0.6 - 2. 0 mmol/L [facility] Interpretation and review of laboratory results Abnormal [facility] Lactate [Moles/Vol] 2.8 mmol/L High 0.6 - 2. 0 mmol/L [facility] Respiratory pathogens DNA an d RNA panel ALICE+non-probe (Nph)Ordered By: Melania Freeman on 11-27-2023 Adenovirus DNA ALICE+non-probe Ql (Nph) Not detected Not Detected [facility] B. parapertussis [id number] DNA ALICE+non-probe Ql (Nph) Not detected Not Detected [facility] B. pertussis toxin promoter region ALICE+non-probe Ql (Nph) Not detected Not Detected [facility] C. pneumoniae DNA ALICE+non-probe Ql (Nph) Not detected Not Detected [facility] FLUAV RNA ALICE+non-probe Ql (Nph) Not detected Not Detected [facility] FLUBV RNA ALICE+non-probe Ql (Nph) Not detected Not Detected [facility] HCoV 229E RNA ALICE+non-probe Ql (Nph) Not detected Not Detected [facility] HCoV HKU1 RNA ALICE+non-probe Ql (Nph) Not detected Not Detected [facility] HCoV NL63 RNA ALICE+non-probe Ql (Nph) Not detected Not Detected [facility] HCoV OC43 RNA ALICE+non-probe Ql (Nph) Not detected Not Detected [facility] hMPV RNA ALICE+non-probe Ql (Nph) Not detected Not Detected [facility] Interpretation and review of laboratory results Normal [facility] M. pneumoniae DNA ALICE+non-probe Ql (Nph) Not detected Not Detected [facility] Parainfluenza virus 1 RNA ALICE+non-probe Ql (Nph) Not detected Not Detected [facility] Parainfluenza virus 2 RNA ALICE+non-probe Ql (Nph) Not detected Not Detected [facility] Parainfluenza virus 3 RNA ALICE+non-probe Ql (Nph) Not detected Not Detected [facility] Parainfluenza virus 4 RNA ALICE+non-probe Ql (Nph) Not detected Not Detected [facility] Rhinovirus+Enterovirus RNA ALICE+non-probe Ql (Nph) Not detected Not Detected [facility] RSV RNA ALICE+non-probe Ql (Nph) Not detected Not Detected [facility] SARS-CoV-2 (COVID-19) RNA ALICE+non-probe Ql (Nph) Not detected Not Detected [facility] S. pneumoniae Urine AntigenO rdered By: Maxine Hill on 11-27-2023 Interpretation and review of laboratory results Normal [facility] S. pneumoniae Ag Ql (U) Negative Pres umptive Negative for Pneumococcal pneumoniae [facility] TSH DL <= 0.005 mIU/L Qnon 0 11-27-2023 Interpretation and review of laboratory results Normal [facility] TSH Qn 0.35 m[IU]/L [facility] Tropinin I.cardiac panel Hig h sensitivity methodon 11-27-2023 Interpretation and review of laboratory results Abnormal [facility] Less than 99th percentile of normal [...] performed using a different testing methodology at [facility] than [facility]. Direct result comparisons should only be made within the same method. [facility] Troponin I, High Sensitivity on 11-27-2023 Tropinin I.cardiac panel High sensitivity method 6445 ng/L Critically high 0 - 20 ng/L [facility] Comment on above: Previous result zay boss on 11/26/2023 2158 on specimen/case [id number] called with component [facility] for procedure Troponin I, High Sensitivity with value 2,361 ng/L. Troponin x 2 (Now and Repeat in 3 hours)Ordered By: Stephanie Carlton on 11-27-2023 Delta % Troponin I -6 % <20% of Baseline Troponin [facility] Inter Troponin I Delta Change Probable non-acute cardiac injury or late presentation of acute injury. [facility] Interpretation and review of laboratory results Abnormal [facility] Troponin I 9349 ng/L Critically high NINF - 59 ng/L [facility] Troponin x 2 (Now and Repeat in 3 hours)on 11-27-2023 Interpretation and review of laboratory results Abnormal [facility] Troponin I 9973 ng/L Critically high NINF - 59 ng/L [facility] Troponin I Interpretation Possible acute cardiac injury. [facility] XR Chest PA and Abdomen APon 11-27-2023 GE RIS GE RIS [facility] Radiology Study observation (narrative) [facility] XR Chest PA and Abdomen APOr dered By: Malika Painting on 11-27-2023 [facility] Work Phone: aPTT Coag (Bld) [Time]Ordere d By: Becky Mercado on 11-27-2023 Interpretation and review of laboratory results Abnormal [facility] aPTT Coag (Bld) [Time]Ordere d By: Anjali Hartmann on 11-27-2023 Interpretation and review of laboratory results Abnormal [facility] CBC W Auto Differential pane l (Bld)on 11-26-2023 Basophils (Bld) [#/Vol] 0.05 10*3/uL [facility] Basophils/100 WBC (Bld) 0.2 % 0.0 - 2.0 % [facility] Eosinophils (Bld) [#/Vol] 0.00 10*3/uL [facility] Eosinophils/100 WBC (Bld) 0.0 % 0.0 - 6.0 % [facility] Erythrocyte distribution width (RBC) [Ratio] 13.8 % 11.5 - 14.5 % [facility] Hematocrit (Bld) [Volume fraction] 38.0 % Low 41.0 - 52.0 % [facility] Hemoglobin (Bld) [Mass/Vol] 12.2 g/dL Low 13.5 - 17.5 g/dL [facility] Immature granulocytes (Bld) [#/Vol] 0.12 10*3/uL [facility] Immature granulocytes/100 WBC (Bld) 0.6 % 0.0 - 0.9 % [facility] Comment on above: Immature Granulocyte Count (IG) includes promyelocytes, myelocytes and metamyelocytes but does not include bands. Percent differential counts (%) should be interpreted in the context of the absolute cell counts (cells/UL). Interpretation and review of laboratory results Abnormal [facility] Lymphocytes (Bld) [#/Vol] 2.01 10*3/uL [facility] Lymphocytes/100 WBC (Bld) 9.8 % 13.0 - 44. 0 % [facility] MCH (RBC) [Entitic mass] 30.5 pg 26. 0 - 34.0 pg [facility] MCHC (RBC) [Mass/Vol] 32.1 g/dL 32.0 - 36.0 g/dL [facility] MCV (RBC) [Entitic vol] 95 fL 80 - 100 fL [facility] Monocytes (Bld) [#/Vol] 0.75 10*3/uL [facility] Monocytes/100 WBC (Bld) 3.7 % 2.0 - 10.0 % [facility] Neutrophils (Bld) [#/Vol] 17.49 10*3/uL High [facility] Comment on above: Percent differential counts (%) should be interpreted in the context of the absolute cell counts (cells/uL). Neutrophils/100 WBC (Bld) 85.7 % 40.0 - 80. 0 % [facility] Nucleated RBC/100 WBC (Bld) [Ratio] 0.0 % [facility] Platelets (Bld) [#/Vol] 281 10*3/uL [facility] RBC (Bld) [#/Vol] 4.00 10*6/uL Low [facility] WBC (Bld) [#/Vol] 20.4 10*3/uL High [facility] Comprehensive metabolic 2000 panelon 11-26-2023 Albumin BCP dye [Mass/Vol] 4.2 g/dL 3.4 - 5.0 g/dL [facility] ALP [Catalytic activity/Vol] 101 U/L 33 - 136 U/L [facility] ALT With P-5'-P [Catalytic activity/Vol] 38 U/L 10 - 52 U/L [facility] Comment on above: Patients treated wit h Sulfasalazine may generate falsely decreased results for ALT. Anion gap [Moles/Vol] 17 mmol/L 10 - 2 0 mmol/L [facility] AST With P-5'-P [Catalytic activity/Vol] 53 U/L High 9 - 39 U/L [facility] Bilirubin [Mass/Vol] 0.6 mg/dL 0.0 - 1 .2 mg/dL [facility] Calcium [Mass/Vol] 9.2 mg/dL 8.6 - 10. 3 mg/dL [facility] Chloride [Moles/Vol] 106 mmol/L 98 - 10 7 mmol/L [facility] CO2 [Moles/Vol] 17 mmol/L Low 21 - 32 mmol/L [facility] Creatinine [Mass/Vol] 1.96 mg/dL High 0.50 - 1.30 mg/dL [facility] GFR/1.73 sq M.predicted among non-blacks MDRD (S/P/Bld) [Vol rate/Area] 34 mL/min/{1.73_m2} Low - [facility] Comment on above: Calculations of albin mated GFR are performed using the 2020 CKD-EPI Study Refit equation without the race variable for the IDMS-Traceable creatinine methods. https://jasn.asnjournals.org/content//ASN.20 79765241 Glucose [Mass/Vol] 492 mg/dL Critically high 74 - 99 mg/d L [facility] Comment on above: Confirmed by repeat analysis Interpretation and review of laboratory results Abnormal [facility] Potassium [Moles/Vol] 4.5 mmol/L 3.5 - 5.3 mmol/L [facility] Protein [Mass/Vol] 6.7 g/dL 6.4 - 8.2 g/dL [facility] Sodium [Moles/Vol] 135 mmol/L Low 136 - 145 mmol/L [facility] Urea nitrogen [Mass/Vol] 35 mg/dL High 6 - 23 mg/d L [facility] Critical Careon 11-26-2023 Ger Bansal DO [...] discussed with: accepting provider at another facility [facility] Work Phone: [facility] Work Phone: Lactateon 11-26-2023 Lactate [Moles/Vol] 3.2 mmol/L High 0.4 - 2. 0 mmol/L [facility] Lactate [Moles/Vol] 3.8 mmol/L High 0.4 - 2. 0 mmol/L [facility] Lactate [Moles/Vol]on 2023 Interpretation and review of laboratory results Abnormal [facility] Venipuncture immediately after or during the administration of Metamizole may lead to falsely low results. Testing should be performed immediately prior to Metamizole dosing. [facility] Interpretation and review of laboratory results Abnormal [facility] Venipuncture immediately after or during the administration of Metamizole may lead to falsely low results. Testing should be performed immediately prior to Metamizole dosing. [facility] MRSA DNA ALICE+probe Ql (Nose) on 11-26-2023 Interpretation and review of laboratory results Normal [facility] MRSA DNA ALICE+probe Ql (Unsp spec) Not detected Not Detected [facility] This assay is an FDA-approved in [...] less than two years of age. [facility] Magnesiumon 11-26-2023 Magnesium [Mass/Vol] 2.20 mg/dL 1.60 - 2.40 mg/dL [facility] Magnesium [Mass/Vol]on 11-26 Interpretation and review of laboratory results Normal [facility] Natriuretic peptide B [Mass/ Vol]on 11-26-2023 Interpretation and review of laboratory results Abnormal [facility] Natriuretic peptide B (Bld) [Mass/Vol] 902 pg/mL High 0 - 99 pg/mL [facility] <100 pg/mL - Heart failure unlikely 100-299 pg/mL - Intermediate probability of acute heart failure exacerbation. Correlate with clinical context and patient history. >=300 pg/mL - Heart Failure likely. Correlate with clinical context and patient history. BNP testing is performed using different testing methodology at [facility] than at other [facility]. Direct result comparisons should only be made within the same method. [facility] No Panel Informationon 11-26 [facility] Interpretation and review of laboratory results Normal [facility] PT Coag (PPP) [Time]on 11-26 INR Coag (PPP) [Relative time] 1.1 {INR} 0.9 - 1.1 [facility] Protime-INRon 11-26-2023 PT Coag (PPP) [Time] 12.3 s [facility] Tropinin I.cardiac panel Hig h sensitivity methodon 11-26-2023 Interpretation and review of laboratory results Abnormal [facility] Less than 99th percentile of normal [...] performed using a different testing methodology at [facility] than [facility]. Direct result comparisons should only be made within the same method. [facility] Interpretation and review of laboratory results Abnormal [facility] Less than 99th percentile of normal [...] performed using a different testing methodology at [facility] than [facility]. Direct result comparisons should only be made within the same method. [facility] Troponin I, High Sensitivity on 11-26-2023 Tropinin I.cardiac panel High sensitivity method 3473 ng/L Critically high 0 - 20 ng/L [facility] Comment on above: Previous result veri fied on 11/26/2023 2158 on specimen/case [id number] called with component [facility] for procedure Troponin I, High Sensitivity with value 2,361 ng/L. Tropinin I.cardiac panel High sensitivity method 2361 ng/L Critically high 0 - 20 ng/L [facility] XR Chest Single viewon 11-26 Pulmonary vascular congestive change and edema and small bilateral pleural effusions. There is asymmetric opacity in the right lower lung concerning for superimposed pneumonia. 10 mm nodular opacity at the left lung base; follow-up dedicated CT chest is recommended to exclude underlying pulmonary nodule. MACRO: None Signed by: Ghassan Tovar 11/26/2023 10:02 PM Dictation workstation: [id number] MMODAL Interpreted By: Ghassan Tovar, STUDY: XR CHEST 1 VIEW; 11/26/2023 9:31 pm INDICATION: Signs/Symptoms:dyspn ea. COMPARISON: 10/13/2023 ACCESSION NUMBER(S): [id number] ORDERING CLINICIAN: GER BANSAL FINDINGS: The cardiac silhouette is stable in size. There is pulmonary vascular congestive change and edema. Small bilateral pleural effusions. There is 10 mm nodular opacity at the left lung base. No pneumothorax MMODAL Ghassan Tovar MD - 11/26/2023 Interpreted By: Ghassan Tovar, STUDY: XR CHEST 1 VIEW; 11/26/2023 9:31 pm INDICATION: Signs/Symptoms:dyspn ea. COMPARISON: 10/13/2023 ACCESSION NUMBER(S): [id number] ORDERING CLINICIAN: GER BANSLA FINDINGS: The cardiac silhouette is stable in [...] Ghassan Tovar 11/26/2023 10:02 PM Dictation workstation: [id number] [facility] Work Phone: Radiology Study observation (narrative) [facility] Work Phone: XR Chest Single viewOrdered By: Ghassan Tovar on 11-26-2023 [facility] Work Phone: aPTTon 11-26-2023 aPTT Coag (PPP) [Time] 38 s Un [facility] aPTT Coag (PPP) [Time]on The APTT is no longer used for monitoring Unfractionated Heparin Therapy. For monitoring Heparin Therapy, use the Heparin Assay. [facility] Absolute lymphocyte countOrd ered By: Ryley Jeter on 11-25-2023 Lymphocytes Auto (Unsp spec) [#/Vol] 1.79 10*3/uL 0.83-4.51 [facility] Automated lymphocyte count a s percentage of total leukocytesOrdered By: Ryley Gordilloke on 11-25-2023 Lymphocytes/100 WBC Auto (Unsp spec) 19.7 % 19-41 [facility] Basophil percentageOrdered B y: Ryley Steffany on 11-25-2023 Basophils/100 WBC (Bld) 1.0 % 0-1 [facility] Bilirubin [Mass/Vol] 0.50 mg/dL 0.20-1.00 [facility] Comment on above: For patients on eltr ombopag therapy, use of Dimension [place] TBIL is not recommended. Chloride [Moles/Vol] 113 mmol/L 98-107 [facility] Eosinophils/100 WBC (Bld) 2.3 % 0-5 [facility] Glucose [Mass/Vol] 130 mg/dL 74-106 [facility] Comment on above: Fasting Glucose resu lt greater than or equal to 126 mg/dL suggests DIABETES MELLITUS per A.D.A. criteria. Hemoglobin (Bld) [Mass/Vol] 12.2 g/dL 13.0-16.5 [facility] Monocytes/100 WBC (Bld) 7.5 % 0-10 [facility] Neutrophils (Bld) [#/Vol] 6.3 10*3/uL 2.0-7.7 [facility] Neutrophils/100 WBC (Bld) 69.2 % 47-70 [facility] Potassium [Moles/Vol] 4.3 mmol/L 3.5-5.1 [facility] Protein [Mass/Vol] 7.1 g/dL 6.4-8.2 [facility] Sodium [Moles/Vol] 142 mmol/L 136-145 [facility] WBC (Bld) [#/Vol] 9.1 10*3/uL 4.4-11.0 [facility] Determination of erythrocyte mean corpuscular volume (MCV)Ordered By: Ryley Jeter on 11-25-2023 MCV (RBC) [Entitic vol] 93.5 fL 80-94 [facility] Erythrocyte distribution wid th ratioOrdered By: Ryley Steffany on 11-25-2023 Erythrocyte distribution width (RBC) [Ratio] 14.1 % 11.6-14.6 [facility] Erythrocyte distribution wid th standard deviationOrdered By: Ryley Steffany on 11-25-2023 Erythrocyte distribution width (RBC) [Entitic vol] 47.9 fL 35.1-43.9 [facility] Hematocrit Auto (Bld) [Volum e fraction][facility] on 11-25-2023 Hematocrit (Bld) [Volume fraction] 37.7 % 40-54 [facility] Immature granulocytes/100 WB C Auto (Bld)Ordered By: [facility] Ste[facility] on 11-25-2023 Immature granulocytes/100 WBC (Bld) 0.300 % 0.0-0.9 [facility] Comment on above: IG% - Immature Granu locytes (promyelocytes, myelocytes and metamyelocytes) > 1% indicates that a LEFT SHIFT is Present. Laboratory - Chemistry and C hemistry - challengeOrdered By: Ryley Steffany on 11-25-2023 Albumin/Globulin [Mass ratio] 1.0 {ratio} 0.9-2.4 [facility] ALP [Catalytic activity/Vol] 98 U/L 45-117 [facility] ALT [Catalytic activity/Vol] 25 U/L 16-61 [facility] CO2 [Moles/Vol] 25.0 mmol/L 21.0-32.0 [facility] Globulin (S) [Mass/Vol] 3.5 g/dL 2.2-4.2 [facility] Urea nitrogen/Creatinine [Mass ratio] 13.5 mg/mg 10-20 [facility] Laboratory - Hematology and Cell countsOrdered By: [facility] Jeter on 11-25-2023 MCH (RBC) [Entitic mass] 30.3 pg 27.0-32.0 [facility] MCHC (RBC) [Mass/Vol] 32.4 g/dL 32-36 [facility] Nucleated RBC/100 WBC (Bld) [Ratio] 0 % 0-5 [facility] Platelets (Bld) [#/Vol] 239 10*3/uL 150-450 [facility] No Panel InformationOrdered By: Ryley Jeter on 11-25-2023 Estimated GFR (MDRD) Amer 55 mL/min >60 [facility] Comment on above: GFR Calc Estimated GFR (MDRD) Non-Af Amer 46 mL/min >60 [facility] Comment on above: Non- GFR Calc Platelet mean volume [place]-Ec ker (Bld) [Entitic vol]Ordered By: Ryley Jeter on 11-25-2023 Platelet mean volume (Bld) [Entitic vol] 11.3 fL 6.2-12.0 [facility] RBC Auto (Bld) [#/Vol]Ordere d By: Ryley Jeter on 11-25-2023 RBC (Bld) [#/Vol] 4.03 10*6/uL 4.6-6.2 [facility] Serum or plasma calcium nikkie urement (mass/volume)Ordered By: Ryley Jeter on 11-25-2023 Calcium [Mass/Vol] 9.5 mg/dL 8.5-10.1 [facility] Serum or plasma creatinine m easurement (mass/volume)Ordered By: Ryley Jeter on 11-25-2023 Creatinine [Mass/Vol] 1.56 mg/dL 0.70-1.30 [facility] Comment on above: The validity of the calculated GFR & GFRAA in patients over 70 years has not been determined. Clinical correlation is essential. Serum or plasma thyroid stim ulating hormone (TSH) measurement (units/volume)Ordered By: Ryley Jeter on 11-25-2023 TSH Qn 0.80 uIU/mL 0.358-3.74 [facility] Serum or plasma urea nitroge n measurement (mass/volume)Ordered By: Ryley Jeter on 11-25-2023 Urea nitrogen [Mass/Vol] 21 mg/dL 7-18 [facility] Thin prep Papanicolaou smear with manual screeningOrdered By: Ryley Jeter on 11-25-2023 Thin prep Papanicolaou smear with manual screening 3.6 g/dL 3.2-5.0 [facility] Thin prep Papanicolaou smear with manual screening 23 U/L 15-37 [facility] Thin prep Papanicolaou smear with manual screening 4 5-15 [facility] Basophil percentageOrdered B y: Jana Ferguson on 10-22-2023 Chloride [Moles/Vol] 111 mmol/L 98-107 [facility] Glucose [Mass/Vol] 120 mg/dL 74-106 [facility] Comment on above: Fasting Glucose resu lt from 100 to 125 mg/dL suggests IMPAIRED HOMEOSTASIS per A.D.A. criteria. Potassium [Moles/Vol] 4.7 mmol/L 3.5-5.1 [facility] Sodium [Moles/Vol] 140 mmol/L 136-145 [facility] WBC (Bld) [#/Vol] 9.1 10*3/uL 4.4-11.0 [facility] Blood erythrocytes count (nu mber/volume)Ordered By: Jana Ferguson on 10-22-2023 RBC (Bld) [#/Vol] 4.16 10*6/uL 4.6-6.2 [facility] Blood hemoglobin measurement (mass/volume)Ordered By: Jana Ferguson on 10-22-2023 Hemoglobin (Bld) [Mass/Vol] 12.3 g/dL 13.0-16.5 [facility] Blood platelet mean volumeOr dered By: Jana Ferguson on 10-22-2023 Platelet mean volume (Bld) [Entitic vol] 11.6 fL 6.2-12.0 [facility] Determination of erythrocyte mean corpuscular volume (MCV)Ordered By: Jana Ferguson on 10-22-2023 MCV (RBC) [Entitic vol] 93.0 fL 80-94 [facility] Hematocrit Auto (Bld) [Volum e fraction]Ordered By: Jana Ferguson on 10-22-2023 Hematocrit (Bld) [Volume fraction] 38.7 % 40-54 [facility] Laboratory - Chemistry and C hemistry - challengeOrdered By: Jana Ferguson on 10-22-2023 CO2 [Moles/Vol] 27.0 mmol/L 21.0-32.0 [facility] Urea nitrogen/Creatinine [Mass ratio] 20.9 mg/mg 10-20 [facility] Laboratory - Hematology and Cell countsOrdered By: Jana Ferguson on 10-22-2023 Erythrocyte distribution width (RBC) [Entitic vol] 44.3 fL 35.1-43.9 [facility] Erythrocyte distribution width (RBC) [Ratio] 13.0 % 11.6-14.6 [facility] MCH (RBC) [Entitic mass] 29.6 pg 27.0-32.0 [facility] MCHC Auto (RBC) [Mass/Vol]Or dered By: Jana Ferguson on 10-22-2023 MCHC (RBC) [Mass/Vol] 31.8 g/dL 32-36 [facility] No Panel InformationOrdered By: Jana Ferguson on 10-22-2023 Estimated GFR (MDRD) Amer 40 mL/min >60 [facility] Comment on above: GFR Calc Estimated GFR (MDRD) Non-Af Amer 33 mL/min >60 [facility] Comment on above: Non- GFR Calc Platelets bldOrdered By: Jadyn Ferguson on 10-22-2023 Platelets (Bld) [#/Vol] 304 10*3/uL 150-450 [facility] Serum or plasma calcium nikkie urement (mass/volume)Ordered By: Jana Ferguson on 10-22-2023 Calcium [Mass/Vol] 9.1 mg/dL 8.5-10.1 [facility] Serum or plasma creatinine m easurement (mass/volume)Ordered By: Jana Ferguson on 10-22-2023 Creatinine [Mass/Vol] 2.06 mg/dL 0.70-1.30 [facility] Comment on above: The validity of the calculated GFR & GFRAA in patients over 70 years has not been determined. Clinical correlation is essential. Serum or plasma urea nitroge n measurement (mass/volume)Ordered By: Jana Ferguson on 10-22-2023 Urea nitrogen [Mass/Vol] 43 mg/dL 7-18 [facility] Thin prep Papanicolaou smear with manual screeningOrdered By: Jana Ferguson on 10-22-2023 Thin prep Papanicolaou smear with manual screening 2 5-15 [facility] Basic metabolic 2000 panelon 10-13-2023 Anion gap [Moles/Vol] 17 mmol/L 10 - 2 0 mmol/L [facility] Calcium [Mass/Vol] 8.3 mg/dL Low 8.6 - 10. 3 mg/dL [facility] Chloride [Moles/Vol] 102 mmol/L 98 - 10 7 mmol/L [facility] CO2 [Moles/Vol] 22 mmol/L 21 - 32 mmol/L [facility] Creatinine [Mass/Vol] 2.30 mg/dL High 0.50 - 1.30 mg/dL [facility] GFR/1.73 sq M.predicted MDRD (S/P/Bld) [Vol rate/Area] 28 mL/min/{1.73_m2} Low - PINF [facility] Comment on above: Calculations of albin mated GFR are performed using the 2020 CKD-EPI Study Refit equation without the race variable for the IDMS-Traceable creatinine methods. https://jasn.asnjournals.org/content//ASN.20 01210373 Glucose [Mass/Vol] 327 mg/dL High 74 - 99 mg/dL [facility] Interpretation and review of laboratory results Abnormal [facility] Potassium [Moles/Vol] 4.9 mmol/L 3.5 - 5.3 mmol/L [facility] Sodium [Moles/Vol] 136 mmol/L 136 - 145 mmol/L [facility] Urea nitrogen [Mass/Vol] 57 mg/dL High 6 - 23 mg/d L [facility] CBC W Auto Differential pane l (Bld)on 10-13-2023 Basophils (Bld) [#/Vol] 0.02 10*3/uL [facility] Basophils/100 WBC (Bld) 0.1 % 0.0 - 2.0 % [facility] Eosinophils (Bld) [#/Vol] 0.00 10*3/uL [facility] Eosinophils/100 WBC (Bld) 0.0 % 0.0 - 6.0 % [facility] Erythrocyte distribution width (RBC) [Ratio] 13.2 % 11.5 - 14.5 % [facility] Hematocrit (Bld) [Volume fraction] 36.4 % Low 41.0 - 52.0 % [facility] Hemoglobin (Bld) [Mass/Vol] 12.4 g/dL Low 13.5 - 17.5 g/dL [facility] Immature granulocytes (Bld) [#/Vol] 0.11 10*3/uL [facility] Immature granulocytes/100 WBC (Bld) 0.6 % 0.0 - 0.9 % [facility] Comment on above: Immature Granulocyte Count (IG) includes promyelocytes, myelocytes and metamyelocytes but does not include bands. Percent differential counts (%) should be interpreted in the context of the absolute cell counts (cells/UL). Interpretation and review of laboratory results Abnormal [facility] Lymphocytes (Bld) [#/Vol] 1.30 10*3/uL [facility] Lymphocytes/100 WBC (Bld) 7.3 % 13.0 - 44. 0 % [facility] MCH (RBC) [Entitic mass] 31.0 pg 26. 0 - 34.0 pg [facility] MCHC (RBC) [Mass/Vol] 34.1 g/dL 32.0 - 36.0 g/dL [facility] MCV (RBC) [Entitic vol] 91 fL 80 - 100 fL [facility] Monocytes (Bld) [#/Vol] 1.15 10*3/uL High [facility] Monocytes/100 WBC (Bld) 6.5 % 2.0 - 10.0 % [facility] Neutrophils (Bld) [#/Vol] 15.21 10*3/uL High [facility] Comment on above: Percent differential counts (%) should be interpreted in the context of the absolute cell counts (cells/uL). Neutrophils/100 WBC (Bld) 85.5 % 40.0 - 80. 0 % [facility] Nucleated RBC/100 WBC (Bld) [Ratio] 0.0 % [facility] Platelets (Bld) [#/Vol] 153 10*3/uL [facility] RBC (Bld) [#/Vol] 4.00 10*6/uL [facility] W[facility] (Bld[facility] [#/Vol] 17.8 10*3/uL High [facility] Glucose Test strip manual (B ld) [Mass/Vol]on 10-13-2023 Glucose [Mass/Vol] 329 mg/dL High 74 - 99 mg/dL [facility] Interpretation and review of laboratory results Abnormal [facility] Glucose [Mass/Vol] 304 mg/dL High 74 - 99 mg/dL [facility] Interpretation and review of laboratory results Abnormal [facility] Glucose [Mass/Vol] 305 mg/dL High 74 - 99 mg/dL [facility] Interpretation and review of laboratory results Abnormal [facility] XR Chest Single viewon 10-13 Right upper lobe airspace consolidation, concerning for pneumonia. Clinical correlation and continued follow-up until clearing is recommended. MACRO: None. Signed by: Jaret Walker 10/13/2023 11:21 AM Dictation workstation: [id number] Interpreted By: Jaret Walker, STUDY: XR CHEST 1 VIEW 10/13/2023 8:31 am INDICATION: Signs/Symptoms:Acute dyspnea COMPARISON: 10/11/2023 ACCESSION NUMBER(S): [id number] ORDERING CLINICIAN: VERA RIVERA TECHNIQUE: A single AP portable radiograph of the chest was obtained. FINDINGS: Multiple cardiac monitoring leads are seen over the chest. Airspace consolidation is seen in the inferior aspect of the right upper lobe, concerning for pneumonia. No pneumothorax is identified. The cardiac silhouette is within normal limits for size. [facility] MMJaret Martinez MD - 10/13/2023 Interpreted By: Jaret Walker, STUDY: XR CHEST 1 VIEW 10/13/2023 8:31 am INDICATION: Signs/Symptoms:Acute dyspnea COMPARISON: 10/11/2023 ACCESSION NUMBER(S): [id number] ORDERING CLINICIAN: VERA RIVERA TECHNIQUE: A single [...] Jaret Walker 10/13/2023 11:21 AM Dictation workstation: [id number] [facility] Work Phone: Radiology Study observation (narrative) [facility] Work [facility]: XR Chest Single viewOrdered By: Jaret Walker on 10-13-2023 [facility] Work Phone: Basic metabolic 2000 panelon 10-12-2023 Anion gap [Moles/Vol] 13 mmol/L 10 - 2 0 mmol/L [facility] Calcium [Mass/Vol] 8.2 mg/dL Low 8.6 - 10. 3 mg/dL [facility] Chloride [Moles/Vol] 103 mmol/L 98 - 10 7 mmol/L [facility] CO2 [Moles/Vol] 23 mmol/L 21 - 32 mmol/L [facility] Creatinine [Mass/Vol] 2.11 mg/dL High 0.50 - 1.30 mg/dL [facility] GFR/1.73 sq M.predicted MDRD (S/P/Bld) [Vol rate/Area] 31 mL/min/{1.73_m2} Low - PINF [facility] Comment on above: Calculations of albin mated GFR are performed using the 2020 CKD-EPI Study Refit equation without the race variable for the IDMS-Traceable creatinine methods. https://jasn.asnjournals.org/content///ASN.20 29940789 Glucose [Mass/Vol] 214 mg/dL High 74 - 99 mg/dL [facility] Interpretation and review of laboratory results Abnormal [facility] Potassium [Moles/Vol] 4.4 mmol/L 3.5 - 5.3 mmol/L [facility] Sodium [Moles/Vol] 135 mmol/L Low 136 - 145 mmol/L [facility] Urea nitrogen [Mass/Vol] 44 mg/dL High 6 - 23 mg/d L [facility] CBC W Auto Differential pane l (Bld)on 10-12-2023 Basophils (Bld) [#/Vol] 0.03 10*3/uL [facility] Basophils/100 WBC (Bld) 0.1 % 0.0 - 2.0 % [facility] Eosinophils (Bld) [#/Vol] 0.00 10*3/uL [facility] Eosinophils/100 WBC (Bld) 0.0 % 0.0 - 6.0 % [facility] Erythrocyte distribution width (RBC) [Ratio] 13.0 % 11.5 - 14.5 % [facility] Hematocrit (Bld) [Volume fraction] 34.5 % Low 41.0 - 52.0 % [facility] Hemoglobin (Bld) [Mass/Vol] 11.8 g/dL Low 13.5 - 17.5 g/dL [facility] Immature granulocytes (Bld) [#/Vol] 0.09 10*3/uL [facility] Immature granulocytes/100 WBC (Bld) 0.4 % 0.0 - 0.9 % [facility] Comment on above: Immature Granulocyte Count (IG) includes promyelocytes, myelocytes and metamyelocytes but does not include bands. Percent differential counts (%) should be interpreted in the context of the absolute cell counts (cells/UL). Interpretation and review of laboratory results Abnormal [facility] Lymphocytes (Bld) [#/Vol] 1.79 10*3/uL [facility] Lymphocytes/100 WBC (Bld) 8.6 % 13.0 - 44. 0 % [facility] MCH (RBC) [Entitic mass] 30.8 pg 26. 0 - 34.0 pg [facility] MCHC (RBC) [Mass/Vol] 34.2 g/dL 32.0 - 36.0 g/dL [facility] MCV (RBC) [Entitic vol] 90 fL 80 - 100 fL [facility] Monocytes (Bld) [#/Vol] 1.55 10*3/uL High [facility] Monocytes/100 WBC (Bld) 7.5 % 2.0 - 10.0 % [facility] Neutrophils (Bld) [#/Vol] 17.32 10*3/uL [facility] Comment on above: Percent differential counts (%) should be interpreted in the context of the absolute cell counts (cells/uL). Neutrophils/100 WBC (Bld) 83.4 % 40.0 - 80. 0 % [facility] Nucleated RBC/100 WBC (Bld) [Ratio] 0.0 % [facility] Platelets (Bld) [#/Vol] 152 10*3/uL [facility] RBC (Bld) [#/Vol] 3.83 10*6/uL Low [facility] WBC (Bld) [#/Vol] 20.8 10*3/uL [facility] Glucose Test strip manual (B ld) [Mass/Vol]on 10-12-2023 Glucose [Mass/Vol] 240 mg/dL High 74 - 99 mg/dL [facility] Interpretation and review of laboratory results Abnormal [facility] Glucose [Mass/Vol] 166 mg/dL High 74 - 99 mg/dL [facility] Interpretation and review of laboratory results Abnormal [facility] Glucose [Mass/Vol] 186 mg/dL High 74 - 99 mg/dL [facility] Interpretation and review of laboratory results Abnormal [facility] Glucose [Mass/Vol] 218 mg/dL High 74 - 99 mg/dL [facility] Interpretation and review of laboratory results Abnormal [facility] Glucose [Mass/Vol] 127 mg/dL High 74 - 99 mg/dL [facility] Interpretation and review of laboratory results Abnormal [facility] No Panel Informationon 10-12 Extra Tube Hold for add-ons. [facility] Comment on above: Auto resulted. [facility] CBC W Auto Differential pane l (Bld)on 10-11-2023 Basophils (Bld) [#/Vol] 0.07 10*3/uL [facility] Basophils/100 WBC (Bld) 0.7 % 0.0 - 2.0 % [facility] Eosinophils (Bld) [#/Vol] 0.09 10*3/uL [facility] Eosinophils/100 WBC (Bld) 0.9 % 0.0 - 6.0 % [facility] Erythrocyte distribution width (RBC) [Ratio] 13.0 % 11.5 - 14.5 % [facility] Hematocrit (Bld) [Volume fraction] 36.7 % Low 41.0 - 52.0 % [facility] Hemoglobin (Bld) [Mass/Vol] 12.0 g/dL Low 13.5 - 17.5 g/dL [facility] Immature granulocytes (Bld) [#/Vol] 0.03 10*3/uL [facility] Immature granulocytes/100 WBC (Bld) 0.3 % 0.0 - 0.9 % [facility] Comment on above: Immature Granulocyte Count (IG) includes promyelocytes, myelocytes and metamyelocytes but does not include bands. Percent differential counts (%) should be interpreted in the context of the absolute cell counts (cells/UL). Interpretation and review of laboratory results Abnormal [facility] Lymphocytes (Bld) [#/Vol] 1.34 10*3/uL [facility] Lymphocytes/100 WBC (Bld) 12.9 % 13.0 - 44. 0 % [facility] MCH (RBC) [Entitic mass] 30.4 pg 26. 0 - 34.0 pg [facility] MCHC (RBC) [Mass/Vol] 32.7 g/dL 32.0 - 36.0 g/dL [facility] MCV (RBC) [Entitic vol] 93 fL 80 - 100 fL [facility] Monocytes (Bld) [#/Vol] 1.25 10*3/uL High [facility] Monocytes/100 WBC (Bld) 12.0 % 2.0 - 10.0 % [facility] Neutrophils (Bld) [#/Vol] 7.64 10*3/uL High [facility] Comment on above: Percent differential counts (%) should be interpreted in the context of the absolute cell counts (cells/uL). Neutrophils/100 WBC (Bld) 73.2 % 40.0 - 80. 0 % [facility] Nucleated RBC/100 WBC (Bld) [Ratio] 0.0 % [facility] Platelets (Bld) [#/Vol] 158 10*3/uL [facility] RBC (Bld) [#/Vol] 3.95 10*6/uL Low [facility] WBC (Bld) [#/Vol] 10.4 10*3/uL [facility] Comprehensive metabolic 2000 panelon 10-11-2023 Albumin BCP dye [Mass/Vol] 3.8 g/dL 3.4 - 5.0 g/dL [facility] ALP [Catalytic activity/Vol] 83 U/L 33 - 136 U/L [facility] ALT With P-5'-P [Catalytic activity/Vol] 13 U/L 10 - 52 U/L [facility] Comment on above: Patients treated wit h Sulfasalazine may generate falsely decreased results for ALT. Anion gap [Moles/Vol] 15 mmol/L 10 - 2 0 mmol/L [facility] AST With P-5'-P [Catalytic activity/Vol] 18 U/L 9 - 39 U/L [facility] Bilirubin [Mass/Vol] 0.4 mg/dL 0.0 - 1 .2 mg/dL [facility] Calcium [Mass/Vol] 8.5 mg/dL Low 8.6 - 10. 3 mg/dL [facility] Chloride [Moles/Vol] 103 mmol/L 98 - 10 7 mmol/L [facility] CO2 [Moles/Vol] 22 mmol/L 21 - 32 mmol/L [facility] Creatinine [Mass/Vol] 1.83 mg/dL High 0.50 - 1.30 mg/dL [facility] GFR/1.73 sq M.predicted MDRD (S/P/Bld) [Vol rate/Area] 37 mL/min/{1.73_m2} Low - PINF [facility] Comment on above: Calculations of albin mated GFR are performed using the 2020 CKD-EPI Study Refit equation without the race variable for the IDMS-Traceable creatinine methods. https://jasn.asnjournals.org/content/early/ASN.20 86485111 Glucose [Mass/Vol] 344 mg/dL High 74 - 99 mg/dL [facility] Interpretation and review of laboratory results Abnormal [facility] Potassium [Moles/Vol] 4.4 mmol/L 3.5 - 5.3 mmol/L [facility] Protein [Mass/Vol] 6.3 g/dL Low 6.4 - 8.2 g/dL [facility] Sodium [Moles/Vol] 136 mmol/L 136 - 145 mmol/L [facility] Urea nitrogen [Mass/Vol] 30 mg/dL High 6 - 23 mg/d L [facility] Critical Careon 10-11-2023 Aury Rouse DO [...] specialty: no Care discussed with: admitting provider [facility] Work Phone: [facility] Work Phone: D-Dimer, VTE Exclusionon Fibrin D-dimer FEU (PPP) [Mass/Vol] 1869 High NINF [facility] ECG 12-LEADon 10-11-2023 ECG 12-LEAD Ventricular Rate 113 Atrial Rate 113 P-R Interval 148 QRS Duration 82 Q-T Interval 332 QTC Calculation(Bazett) 455 P Paris 67 R Paris 39 T [place] 81 QRS Count 18 Q Onset 220 P Onset 146 P Offset 189 T Offset 386 QTC Fredericia 410 Diagnosis Sinus tachycardia 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 Negative results do not preclude Influenza A/B infections, and should not be used as the sole basis for diagnosis, treatment, or other management decisions. If Influenza A/B and RSV PCR results are negative, testing for Parainfluenza virus, Adenovirus and Metapneumovirus is routinely performed for [facility] pediatric oncology and intensive care inpatients, and is available on other patients by placing an add-on request. [facility] Fibrin D-dimer FEU (PPP) [Ma ss/Vol]on 10-11-2023 Interpretation and review of laboratory results Abnormal [facility] The VTE Exclusion D-Dimer assay is reported in ng/mL Fibrinogen Equivalent Units (FEU). Per field artillery fire control man's instructions for use, a value of less [...] model for DVT or PE exclusion.) [facility] Gas panel (BldA)on 3 Apparatus CANNULA [facility] Base excess Calc (Bld) [Moles/Vol] -2.2000 mmol/L Low -2.0 - 3.0 mmol/L [facility] CO2 (Bld) [Partial pressure] 41 mm[Hg] [facility] HCO3 (Bld) [Moles/Vol] 23.2 mmol/L 22.0 - 26.0 mmol/L [facility] Inhaled oxygen concentration 50 % [facility] Interpretation and review of laboratory results Abnormal [facility] Oxygen (Bld) [Partial pressure] 66 mm[Hg] Low [facility] Oxyhemoglobin (BldA) [Mass fraction] 90.6 % Low 94.0 - 98.0 % [facility] pH (Bld) 7.36 [pH] Low 7.38 - 7.42 pH [facility] Glucose Test strip manual (B ld) [Mass/Vol]on 10-11-2023 Glucose [Mass/Vol] 132 mg/dL High 74 - 99 mg/dL [facility] Interpretation and review of laboratory results Abnormal [facility] Glucose [Mass/Vol] 203 mg/dL High 74 - 99 mg/dL [facility] Interpretation and review of laboratory results Abnormal [facility] Glucose [Mass/Vol] 271 mg/dL High 74 - 99 mg/dL [facility] Interpretation and review of laboratory results Abnormal [facility] Glucose [Mass/Vol] 357 mg/dL High 74 - 99 mg/dL [facility] Interpretation and review of laboratory results Abnormal [facility] Glucose [Mass/Vol] 407 mg/dL High 74 - 99 mg/dL [facility] Interpretation and review of laboratory results Abnormal [facility] Glucose [Mass/Vol] 385 mg/dL High 74 - 99 mg/dL [facility] Interpretation and review of laboratory results Abnormal [facility] Glucose [Mass/Vol] 455 mg/dL High 74 - 99 mg/dL [facility] Comment on above: RN/ NOTIFIED Interpretation and review of laboratory results Abnormal [facility] Glucose [Mass/Vol] 481 mg/dL High 74 - 99 mg/dL [facility] Comment on above: RN/MD NOTIFIED Interpretation and review of laboratory results Abnormal [facility] Glucose [Mass/Vol] mg/dL High 74 - 99 mg/dL [facility] Interpretation and review of laboratory results Abnormal [facility] Glucose [Mass/Vol] mg/dL High 74 - 99 mg/dL [facility] Interpretation and review of laboratory results Abnormal [facility] Glucose [Mass/Vol] 571 mg/dL High 74 - 99 mg/dL [facility] Interpretation and review of laboratory results Abnormal [facility] Glucose [Mass/Vol] 562 mg/dL High 74 - 99 mg/dL [facility] Comment on above: RN/MD NOTIFIED Interpretation and review of laboratory results Abnormal [facility] Glucose [Mass/Vol] 386 mg/dL High 74 - 99 mg/dL [facility] Interpretation and review of laboratory results Abnormal [facility] Glucose [Mass/Vol]on Interpretation and review of laboratory results Abnormal [facility] Glucose, randomon 10-11-2023 Glucose [Mass/Vol] 654 mg/dL Critically high 74 - 99 mg/d L [facility] Comment on above: Confirmed by repeat analysis Lactateon 10-11-2023 Lactate [Moles/Vol] 1.6 mmol/L 0.4 - 2. 0 mmol/L [facility] Lactate [Moles/Vol]on 2022 Interpretation and review of laboratory results Normal [facility] Venipuncture immediately after or during the administration of Metamizole may lead to falsely low results. Testing should be performed immediately prior to Metamizole dosing. [facility] Natriuretic peptide B [Mass/ Vol]on 10-11-2023 Interpretation and review of laboratory results Abnormal [facility] Natriuretic peptide B (Bld) [Mass/Vol] 251 pg/mL High 0 - 99 pg/mL [facility] <100 pg/mL - Heart failure unlikely 100-299 pg/mL - Intermediate probability of acute heart failure exacerbation. Correlate with clinical context and patient history. >=300 pg/mL - Heart Failure likely. Correlate with clinical context and patient history. BNP testing is performed using different testing methodology at [facility] than at other [facility]. Direct result comparisons should only be made within the same method. [facility] No Panel Informationon 10-11 Atrial Rate 113 BPM [facility] Work Phone: [phone] P Paris 67 degrees [facility] Work Phone: [phone] P Offset 189 ms [facility] Work Phone: [phone] P Onset 146 ms [facility] Work Phone: [phone] OR Interval 148 ms [facility] Work Phone: [phone] Q Onset 220 ms [facility] Work Phone: [phone] QRS Count 18 beats [facility] Work Phone: [phone] QRS Duration 82 ms [facility] Work Phone: [phone] QT Interval 332 ms [facility] Work Phone: [phone] QTC Calculation(Bazett) 455 ms U [facility] Work Phone: [phone] QTC Fredericia 410 ms [facility] Work Phone: [phone] R [place] 39 degrees [facility] Work Phone: [phone] T [place] 81 degrees [facility] Work Phone: [phone] T Offset 386 ms [facility] Work Phone: [phone] Ventricular Rate 113 BPM [facility] Work Phone: [phone] Sinus tachycardia 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 [facility] Comment on above: Auto resulted. [facility] Interpretation and review of laboratory results Normal [facility] ProcalcitoninOrdered By: Teresa Fine on 10-11-2023 Procalcitonin [Mass/Vol] 0.18 ng/mL High ANGEL F - 0.07 ng/mL [facility] Procalcitonin [Mass/Vol]Orde red By: Ismael Fine on 10-11-2023 Interpretation and review of laboratory results Abnormal [facility] Procalcitonin (PCT) results measured serially can [...] immunomodulatory medications has not been evaluated. [facility] RSV PCRon 10-11-2023 RSV RNA ALICE+probe Ql (Resp) Not detected Not Detected [facility] RSV RNA ALICE+probe Ql (Resp)o n 10-11-2023 This assay is an FDA-cleared, in vitro diagnostic nucleic acid amplification test for the detection of RSV from nasopharyngeal specimens, and has been validated for use at [facility]. Negative results do not preclude RSV infections, and should not be used as the sole basis for diagnosis, treatment, or other management decisions. If Influenza A/B and RSV PCR results are negative, testing for Parainfluenza virus, Adenovirus and Metapneumovirus is routinely performed for pediatric oncology and intensive care inpatients at [facility], and is available on other patients by placing an add-on request. [facility] SARS-CoV-2 (COVID-19) RNA NA A+probe Ql (Resp)Ordered By: Rae Marcelino on 10-11-2023 Interpretation and review of laboratory results Abnormal [facility] This assay has received FDA Emergency [...] and has been validated for use at [facility]. Negative results do not preclude COVID-19 infections and should not be used as the sole basis for diagnosis, treatment, or other management decisions. [facility] SST TOPon 10-11-2023 Extra Tube Hold for add-ons. [facility] Comment on above: Auto resulted. [facility] Sars-CoV-2 PCR, SymptomaticO rdered By: Rae Marcelino on 10-11-2023 SARS-CoV-2 (COVID-19) RNA ALICE+probe Ql (Resp) Detected Abnormal Not Detected [facility] Tropinin I.cardiac panel Hig h sensitivity methodon 10-11-2023 Interpretation and review of laboratory results Abnormal [facility] Less than 99th percentile of normal [...] performed using a different testing methodology at [facility] than at other [facility]. Direct result comparisons should only be made within the same method. [facility] Interpretation and review of laboratory results Abnormal [facility] Less than 99th percentile of normal [...] performed using a different testing methodology at [facility] than at other [facility]. Direct result comparisons should only be made within the same method. [facility] Troponin I, High Sensitivity , Initialon 10-11-2023 Tropinin I.cardiac panel High sensitivity method 102 ng/L Critically high 0 - 20 ng/L [facility] Troponin, High Sensitivity, 1 Houron 10-11-2023 Tropinin I.cardiac panel High sensitivity method 354 ng/L Critically high 0 - 20 ng/L [facility] Comment on above: Previous result adami gera on 10/11/2023 0209 on specimen/case [id number] called with component [facility] for procedure Troponin I, High Sensitivity, Initial with value 102 ng/L. US Heart TransthoracicOrdere d By: Jose Enrique Molina on 10-11-2023 LA vol index A/L 25.1 [facility] Work Phone: LV A4C EF 45.6 [facility] Work Phone: LV biplane EF 44 [facility] Work Phone: LVIDd 3.70 [facility] Work Phone: LVOT diam 1.80 [facility] Work Phone: [facility] Work Phone: [place] [address] [phone], TRANSTHORACIC ECHOCARDIOGRAM REPORT Patient Name: ENOC GRANTRE Reading Physician: [id number] Jose Enrique Molina MD Study Date: 10/11/2023 Ordering Provider: [id number] VERA RIVERA MRN/PID: [id number] Fellow: Nurse: Jana See RN Date of /Age: 2 1945 / 77 years Audit Control Clerk: Cecilio Gabriel RDCS Gender: M Additional Staff: Height: 170.18 cm Admit Date: Weight: 71.67 kg Admission Status: Inpatient - Routine BSA: 1.83 m2 Department Location: [address]-ICU Blood Pressure: 141 /71 mmHg Study Type: TRANSTHORACIC ECHO (TTE) COMPLETE Diagnosis/ICD: Acute on chronic systolic (congestive) heart failure (CHF)-I50.23 CPT Codes: Echo Complete w Full Doppler-08965 Study Detail: The following Echo studies were [...] LA Area A2C: 16.2 cm2 LA Major [place] A4C: 5.3 cm LA Major [place] A2C: 5.0 cm LA Volume Index: 23.9 ml/m2 LA Vol A4C: 43.7 ml LA Vol A2C: 43.3 ml LV SYSTOLIC FUNCTION BY 2D PLANIMETRY (MOD): Normal Ranges: EF-A4C View: 45.6 % (>=55%) EF-A2C View: 40.9 % EF-Biplane: 44.2 % AORTIC VALVE: Normal Ranges: LVOT Diameter: 1.80 cm (1.8-2.4cm) RIGHT VENTRICLE: RV Basal 3.49 cm RV Mid 2.45 cm RV Major 7.8 cm [id number] Jose Enrique Mloina MD Electronically signed on 10/11/2023 at 9:43:19 AM Final Jose Enrique Gardiner MD - 10/11/2023 [place] [address] [phone], TRANSTHORACIC ECHOCARDIOGRAM REPORT Patient Name: ENOC ARMANDO Reading Physician: [id number] Jose Enrique Molina MD Study Date: 10/11/2023 Ordering Provider: [id number] VERA RIVERA MRN/PID: [id number] Fellow: Nurse: Jana See RN Date of /Age: 2 1945 / 77 years Audit Control Clerk: Cecilio Gabriel RDCS Gender: M Additional Staff: Height: 170.18 cm Admit Date: Weight: 71.67 kg Admission Status: Inpatient - Routine BSA: 1.83 m2 Department Location: [address]-ICU Blood Pressure: 141 /71 mmHg Study Type: TRANSTHORACIC ECHO (TTE) COMPLETE Diagnosis/ICD: Acute on chronic systolic (congestive) heart failure (CHF)-I50.23 CPT Codes: Echo Complete w Full Doppler-14474 Study Detail: The following Echo studies were [...] LA Area A2C: 16.2 cm2 LA Major [place] A4C: 5.3 cm LA Major [place] A2C: 5.0 cm LA Volume Index: 23.9 ml/m2 LA Vol A4C: 43.7 ml LA Vol A2C: 43.3 ml LV SYSTOLIC FUNCTION BY 2D PLANIMETRY (MOD): Normal Ranges: EF-A4C View: 45.6 % (>=55%) EF-A2C View: 40.9 % EF-Biplane: 44.2 % AORTIC VALVE: Normal Ranges: LVOT Diameter: 1.80 cm (1.8-2.4cm) RIGHT VENTRICLE: RV Basal 3.49 cm RV Mid 2.45 cm RV Major 7.8 cm [id number] Jose Enrique Molina MD Electronically signed on 10/11/2023 at 9:43:19 AM Final [facility] Work Phone: Urinalysis complete W Reflex Culture panel (U)on 10-11-2023 Hyaline casts Auto (Urine sed) [#/Area] OCCASIONAL Abnormal NONE /LPF [facility] Interpretation and review of laboratory results Abnormal [facility] RBC Auto (Urine sed) [#/Area] NONE NONE, 1-2, 3-5 /HPF [facility] WBC Auto (Urine sed) [#/Area] NONE 1-5, NONE /HPF [facility] Appearance (U) Clear Clear [facility] Work Phone: )[phone] Bilirubin (U) [Mass/Vol] Negative NEGATIVE [facility] Work Phone: [phone] Color (U) Yellow Straw, Yellow [facility] Work Phone: )[phone] Glucose Auto test strip (U) [Mass/Vol] >=500 (3+) Abnormal NEGATIVE mg/dL [facility] Work Phone: [phone] Interpretation and review of laboratory results Abnormal [facility] Work Phone: [phone] Ketones (U) [Mass/Vol] 5 (TRACE) Abnormal NEGAT FRANK mg/dL [facility] Work Phone: )[phone] Leukocyte esterase Auto test strip Ql (U) Negative NEGATIVE [facility] Work Phone: )[phone] Nitrite Auto test strip Ql (U) Negative NEGATIVE [facility] Work Phone: pH (U) 5.0 [pH] 5.0, 5.5, 6.0, 6.5, 7.0, 7.5, 8.0 [facility] Work Phone: Protein (U) [Mass/Vol] 100 (2+) Abnormal NEGAT FRANK mg/dL [facility] Work Phone: RBC (U) [#/Vol] Negative NEGATIVE [facility] Work Phone: Specific gravity (U) [Rel density] 1.014 1.005 - 1.035 [facility] Work Phone: Urobilinogen (U) [Mass/Vol] mg/dL [facility] - 2.0 mg/dL [facility] Work Phone: [facility] Work Phone: XR Chest Single viewon 10-11 1. Diffuse interstitial and scattered hazy opacities. These are nonspecific and may represent atypical infectious or inflammatory process or possibly edema in the appropriate clinical setting. Component may also be related to chronic parenchymal changes. Recommend follow-up to resolution. Signed by: Kahlil Fagan 10/11/2023 1:33 AM Dictation workstation: [id number] Interpreted By: Kahlil Fagan, STUDY: XR CHEST 1 VIEW; 10/11/2023 1:30 am INDICATION: Signs/Symptoms:Cough . COMPARISON: Chest radiograph 11/04/2012 ACCESSION NUMBER(S): [id number] ORDERING CLINICIAN: AURY ROUSE FINDINGS: SUPPORT DEVICES: [...] . COMPARISON: Chest radiograph 11/04/2012 ACCESSION NUMBER(S): [id number] ORDERING CLINICIAN: AURY ROUSE FINDINGS: SUPPORT DEVICES: [...] Kahlil Fagan 10/11/2023 1:33 AM Dictation workstation: [id number] [facility] Work Phone: Radiology Study observation (narrative) [facility] Work Phone: XR Chest Single viewOrdered By: Kahlil Fagan on 10-11-2023 [facility] Work Phone: US RENAL BILATon 07-30-2023 US RENAL BILAT Patient Name: ENOC ARMANDO STUDY: US RENAL BILAT 07/30/2023 1:11 pm INDICATION: 77 y/o M with CKD N18.9: CKD (chronic kidney disease). COMPARISON: None. ACCESSION NUMBER(S): [id number] ORDERING CLINICIAN: AYANNA ALBERT TECHNIQUE: Grayscale imaging [...] hydronephrosis. Electronically signed by: TENNILLE MAHARAJ MD Normal [facility] Therapy Communicationon 07-03 Therapy Communication Message ENOC ARMANDO was (D/C)- last seen: 01/25/23. Pt self-discharged from skilled Physical Therapy at this time. Pt was not able to be fully re-assessed due to self-discharging and not attending final re-evaluation appointment. Refer back in future if necessary. Signatures Electronically signed by : Carlene Whitehead PT; Jul 29 2023 5:06PM EST (Author) Normal [facility] Initial Visit (Nephrology)on 07-27-2023 Initial Visit (Nephrology) Diagnoses/Problems Arthritis (716.90) (M19.90) CKD (chronic kidney disease) (585.9) (N18.9) Diabetic neuropathy (250.60,357.2) (E11.40) HTN (hypertension) (401.9) (I10) T1DM (type 1 diabetes mellitus) (250.01) (E10.9) Orders Albumin, Urine Spot; Status:Active; Requested for:24Sqg6506; Basic Metabolic Panel; Status:Active; Requested for:43Yjo7480; Magnesium, Serum; Status:Active; Requested for:03Mol9417; Parathormone Intact, Serum; Status:Active; Requested for:73Gnm6124; Phosphorus, Serum; Status:Active; Requested for:43Xpc7519; Ultrasound Kidney Bilateral; Status:Hold For - Scheduling; Requested for:17Iar7156; Radiologist to Determine Optimal Study : Y What are the patient's signs and symptoms? : CKD Uric Acid, Serum; Status:Active; Requested for:63Ecn6460; Urinalysis; Status:Active; Requested for:46Osl9839; Vitamin D 25-Hydroxy; Status:Need Information - ABN Disposition; Requested for:03Eme6711; Patient Discussion/Summary Issues: 1. Chronic kidney disease [...] diabetes Microalbuminuria Dyslipidemia Nicotine Abuse Chief Complaint B[employer]LING [employer]RAVER- REFERRED BY GERMAIN ORTEGA FOR CKD History [...] Capsule1 capsule daily Vitals Vital Signs Recorded: 70Nmc9786 02:48PMRecorded: 94Xwk4796 02:45PM Lxpfzdoy136, UTH478, LUE, Sitting Uwqedwxxo29 (more content not included)... Normal [facility] Tobacco Screening.on 023 Fall risk assessment b) One or more fall s in the last year [facility] Work Phone: Tobacco use status CPHS a) Yes U [facility] Work Phone: COMPREHENSIVE PANELon 2022 Albumin [Mass/Vol] 3.7 g/dL Normal 3.4 - 5.0 [facility] Comment on above: Performed By: #### C MP #### [address] [address] ALP [Catalytic activity/Vol] 80 U/L Normal 33 - 136 [facility] Comment on above: Performed By: #### C MP #### [address] [address] ALT [Catalytic activity/Vol] 12 U/L Normal 10 - 52 [facility] Comment on above: Result Comment: Twila ents treated with Sulfasalazine may generate falsely decreased results for ALT. Performed By: #### C MP #### [address] [address] Anion gap [Moles/Vol] 10 mmol/L Normal 10 - 20 [facility] Comment on above: Performed By: #### C MP #### [address] [address] AST [Catalytic activity/Vol] 16 U/L Normal 9 - 39 [facility] Comment on above: Performed By: #### C MP #### [address] [address] Bilirubin [Mass/Vol] 0.5 mg/dL Normal 0.0 - 1.2 [facility] Comment on above: Performed By: #### C MP #### [address] [address] Calcium [Mass/Vol] 8.9 mg/dL Normal 8.6 - 10.3 [facility] Comment on above: Performed By: #### C MP #### [address] [address] Chloride [Moles/Vol] 107 mmol/L Normal 98 - 107 [facility] Comment on above: Performed By: #### C MP #### [address] [address] Creatinine [Mass/Vol] 1.85 mg/dL High 0.50 - 1.30 [facility] Comment on above: Performed By: #### C MP #### [address] [address] GFR/1.73 sq M.predicted among non-blacks MDRD (S/P/Bld) [Vol rate/Area] 36 mL/min/{1.73_m2} Abnormal >90 [facility] Comment on above: Result Comment: CALC ULATIONS OF ESTIMATED GFR ARE PERFORMED USING THE 2020 CKD-EPI STUDY REFIT EQUATION WITHOUT THE RACE VARIABLE FOR THE IDMS-TRACEABLE CREATININE METHODS. https://jasn.asnjournals.org/content///ASN.20 39561308 Performed By: #### C MP #### [address] [address] Glucose [Mass/Vol] 347 mg/dL High 74 - 99 [facility] Comment on above: Performed By: #### C MP #### [address] [address] HCO3 (Bld) [Moles/Vol] 27 mmol/L Normal 21 - 32 [facility] Comment on above: Performed By: #### C MP #### [address] [address] Potassium [Moles/Vol] 4.4 mmol/L Normal 3.5 - 5.3 [facility] Comment on above: Performed By: #### C MP #### [address] [address] Protein [Mass/Vol] 6.0 g/dL Low 6.4 - 8.2 [facility] Comment on above: Performed By: #### C MP #### [address] [address] Sodium [Moles/Vol] 140 mmol/L Normal 136 - 145 [facility] Comment on above: Performed By: #### C MP #### [address] [address] Urea nitrogen [Mass/Vol] 31 mg/dL High 6 - 23 [facility] Comment on above: Performed By: #### C MP #### [address] [address] HEMOGLOBIN A1Con 06-11-2023 Glucose [Mass/Vol] 171 mg/dL Normal [facility] Comment on above: Performed By: #### H BA1E #### [address] [address] HbA1c (Bld) [Mass fraction] 7.6 % Abnormal [facility] Comment on above: Result Comment: Diag nosis of Diabetes-Adults Non-Diabetic: < or = 5.6% Increased risk for developing diabetes: 5.7-6.4% Diagnostic of diabetes: > or = 6.5% . Monitoring of Diabetes Age (y) Therapeutic Goal (%) Adults: >18 <7.0 Pediatrics: 13-18 <7.5 7-12 <8.0 0- 6 7.5-8.5 [employer]. Diabetes Care 33(S1), Nov 2009. Performed By: #### H BA1E #### [address] [address] ALBUMIN, URINE SPOTon 2022 ALBUMIN,URINE 195.3 mg/L Normal Not Established [facility] Comment on above: Performed By: #### A LBSP ####[id number] [place] [address] ALBUMIN/CREAT RATIO 212.5 ug/mg hearing health technician High 0.0 - 30.0 [facility] Comment on above: Performed By: #### A LBSP ####[id number] [place] [address] CREATININE,URINE 91.9 mg/dL Normal 20.0 - 370.0 [facility] Comment on above: Performed By: #### A LBSP ####[id number] [place] [address] CBC AND DIFFERENTIALon 02-12 % AUTOMATED IMMATURE GRAN 0.3 % Normal 0.0 - 0.9 [facility] Comment on above: Result Comment: Arielle ture Granulocyte Count (IG) includes promyelocytes, myelocytes and metamyelocytes but does not include bands. Percent differential counts (%) should be interpreted in the context of the absolute cell counts (cells/L). Performed By: #### C BCDF #### [address] [address] Basophils (Bld) [#/Vol] 0.09 10*3/uL Normal 0.00 - 0.1 0 [facility] Comment on above: Performed By: #### C BCDF #### [address] [address] Basophils/100 WBC (Bld) 1.2 % Normal 0.0 - 2.0 [facility] Comment on above: Performed By: #### C BCDF #### [address] [address] Eosinophils (Bld) [#/Vol] 0.40 10*3/uL Normal 0.00 - 0 .40 [facility] Comment on above: Performed By: #### C BCDF #### [address] [address] Eosinophils/100 WBC (Bld) 5.2 % Normal 0.0 - 6.0 [facility] Comment on above: Performed By: #### C BCDF #### [address] [address] Erythrocyte distribution width (RBC) [Ratio] 13.1 % Normal 11.5 - 14.5 [facility] Comment on above: Performed By: #### C BCDF #### [address] [address] Hematocrit (Bld) [Volume fraction] 39.5 % Low 41.0 - 52.0 [facility] Comment on above: Performed By: #### C BCDF #### [address] [address] Hemoglobin (Bld) [Mass/Vol] 12.6 g/dL Low 13.5 - 17.5 [facility] Comment on above: Performed By: #### C BCDF #### [address] [address] Lymphocytes (Bld) [#/Vol] 1.68 10*3/uL Normal 0.80 - 3 .00 [facility] Comment on above: Performed By: #### C BCDF #### [address] [address] Lymphocytes/100 WBC (Bld) 21.9 % Normal 13.0 - 44. 0 [facility] Comment on above: Performed By: #### C BCDF #### [address] [address] MCHC (RBC) [Mass/Vol] 31.9 g/dL Low 32.0 - 36.0 [facility] Comment on above: Performed By: #### C BCDF #### [address] [address] MCV (RBC) [Entitic vol] 95 fL Normal 80 - 100 [facility] Comment on above: Performed By: #### C BCDF #### [address] [address] Monocytes (Bld) [#/Vol] 0.57 10*3/uL Normal 0.05 - 0.8 0 [facility] Comment on above: Performed By: #### C BCDF #### [address] [address] Monocytes/100 WBC (Bld) 7.4 % Normal 2.0 - 10.0 [facility] Comment on above: Performed By: #### C BCDF #### [address] [address] Neutrophils (Bld) [#/Vol] 4.91 10*3/uL Normal 1.60 - 5 .50 [facility] Comment on above: Result Comment: Perc ent differential counts (%) should be interpreted in the context of the absolute cell counts (cells/L). Performed By: #### C BCDF #### [address] [address] Neutrophils/100 WBC (Bld) 64.0 % Normal 40.0 - 80. 0 [facility] Comment on above: Performed By: #### C BCDF #### [address] [address] Platelets (Bld) [#/Vol] 229 10*3/uL Normal 150 - 450 [facility] Comment on above: Performed By: #### C BCDF #### [address] [address] RBC 4.18 x10E12/L Low 4.50 - 5.90 [facility] Comment on above: Performed By: #### C BCDF #### [address] [address] WBC (Bld) [#/Vol] 7.7 10*3/uL Normal 4.4 - 11.3 [facility] Comment on above: Performed By: #### C BCDF #### [address] [address] COMPREHENSIVE PANELon 2022 Albumin [Mass/Vol] 4.0 g/dL Normal 3.4 - 5.0 [facility] Comment on above: Performed By: #### C MP #### [address] [address] ALP [Catalytic activity/Vol] 79 U/L Normal 33 - 136 [facility] Comment on above: Performed By: #### C MP #### [address] [address] ALT [Catalytic activity/Vol] 12 U/L Normal 10 - 52 [facility] Comment on above: Result Comment: Twila ents treated with Sulfasalazine may generate falsely decreased results for ALT. Performed By: #### C MP #### [address] [address] Anion gap [Moles/Vol] 10 mmol/L Normal 10 - 20 [facility] Comment on above: Performed By: #### C MP #### [address] [address] AST [Catalytic activity/Vol] 13 U/L Normal 9 - 39 [facility] Comment on above: Performed By: #### C MP #### [address] [address] Bilirubin [Mass/Vol] 0.6 mg/dL Normal 0.0 - 1.2 [facility] Comment on above: Performed By: #### C MP #### [address] [address] Calcium [Mass/Vol] 9.4 mg/dL Normal 8.6 - 10.3 [facility] Comment on above: Performed By: #### C MP #### [address] [address] Chloride [Moles/Vol] 105 mmol/L Normal 98 - 107 [facility] Comment on above: Performed By: #### C MP #### [address] [address] Creatinine [Mass/Vol] 1.69 mg/dL High 0.50 - 1.30 [facility] Comment on above: Performed By: #### C MP #### [address] [address] GFR/1.73 sq M.predicted among non-blacks MDRD (S/P/Bld) [Vol rate/Area] 41 mL/min/{1.73_m2} Abnormal >90 [facility] Comment on above: Result Comment: CALC ULATIONS OF ESTIMATED GFR ARE PERFORMED USING THE 2020 CKD-EPI STUDY REFIT EQUATION WITHOUT THE RACE VARIABLE FOR THE IDMS-TRACEABLE CREATININE METHODS. https://jasn.asnjournals.org/content//ASN.20 45319315 Performed By: #### C MP #### [address] [address] Glucose [Mass/Vol] 253 mg/dL High 74 - 99 [facility] Comment on above: Performed By: #### C MP #### [address] [address] HCO3 (Bld) [Moles/Vol] 28 mmol/L Normal 21 - 32 [facility] Comment on above: Performed By: #### C MP #### [address] [address] Potassium [Moles/Vol] 4.8 mmol/L Normal 3.5 - 5.3 [facility] Comment on above: Performed By: #### C MP #### [address] [address] Protein [Mass/Vol] 6.4 g/dL Normal 6.4 - 8.2 [facility] Comment on above: Performed By: #### C MP #### [address] [address] Sodium [Moles/Vol] 138 mmol/L Normal 136 - 145 [facility] Comment on above: Performed By: #### C MP #### [address] [address] Urea nitrogen [Mass/Vol] 25 mg/dL High 6 - 23 [facility] Comment on above: Performed By: #### C MP #### [address] [address] HEMOGLOBIN A1Con 02-12-2023 Glucose [Mass/Vol] 174 mg/dL Normal [facility] Comment on above: Performed By: #### H BA1E #### [address] [address] HbA1c (Bld) [Mass fraction] 7.7 % Abnormal [facility] Comment on above: Result Comment: Diag nosis of Diabetes-Adults Non-Diabetic: < or = 5.6% Increased risk for developing diabetes: 5.7-6.4% Diagnostic of diabetes: > or = 6.5% . Monitoring of Diabetes Age (y) Therapeutic Goal (%) Adults: >18 <7.0 Pediatrics: 13-18 <7.5 7-12 <8.0 0- 6 7.5-8.5 [employer]. Diabetes Care 33(S1), Nov 2009. Performed By: #### H BA1E #### [address] [address] LIPID PANEL (CORONARY RISK 2 )on 02-12-2023 Cholesterol [Mass/Vol] 154 mg/dL Normal 0 - 199 [facility] Comment on above: Result Comment: [...] dosing. Performed By: #### L IPID #### [address] [address] Cholesterol in HDL [Mass/Vol] 43.0 mg/dL Normal [facility] Comment on above: Result Comment: . AGE VERY LOW LOW NORMAL HIGH 0-19 Y < 35 < 40 40-45 ---- 20-24 Y ---- < 40 >45 ---- >24 Y ---- < 40 40-60 >60 . Performed By: #### L IPID #### [address] [address] Cholesterol in LDL [Mass/Vol] 96 mg/dL Normal 0 - 99 [facility] Comment on above: Result Comment: . NEAR BORD AGE DESIRABLE OPTIMAL HIGH HIGH VERY HIGH 0-19 Y 0 - 109 --- 110-129 >/= 130 ---- 20-24 Y 0 - 119 --- 120-159 >/= 160 ---- >24 Y 0 - 99 100-129 130-159 160-189 >/=190 . Performed By: #### L IPID #### [address] [address] Cholesterol in VLDL [Mass/Vol] 15 mg/dL Normal 0 - 40 [facility] Comment on above: Performed By: #### L IPID #### [address] [address] Cholesterol.total/Cholest santos in HDL [Mass ratio] 3.6 {ratio} Normal [facility] Comment on above: Result Comment: REF VALUES DESIRABLE < 3.4 HIGH RISK > 5.0 Performed By: #### L IPID #### [address] [address] Triglyceride [Mass/Vol] 77 mg/dL Normal 0 - 149 [facility] Comment on above: Result Comment: . [...] dosing. Performed By: #### L IPID #### [address] [address] PROSTATE SPEC.AG,SCREENon PROSTATE SPEC.AG,SCREEN 3.14 ng/mL Normal 0.00 - 4.00 [facility] Comment on above: Result Comment: The FDA requires that the method used for PSA assay be reported to the physician. Values obtained with different assay methods must not be used interchangeably. This test was performed at [facility] [facility] using the Synqera PSA assay is a two-site immunoenzymatic sandwich assay. The assay is approved for measurement of prostate-specific antigen (PSA)in serum and may be used in conjunction with a digital rectal examination in men 50 years and older as an aid in detection of prostate cancer. 8-Gdrwq-cjhfeuhkb inhibitors (e.g. Proscar, Finasteride, Avodart, Dutasteride and Alma Rosa) for the treatment of BPH have been shown to lower PSA levels by an average of 50% after 6 months of treatment. Performed By: #### P [facility] #### [place] [address] THYROXINE,FREEon 02-12-2023 THYROXINE,FREE 1.16 ng/dL High 0.61 - 1.12 [facility] Comment on above: Result Comment: Thyr oxine Free testing is performed using different testing methodology at [facility] than at [facility]. Direct result comparisons should only be [...] draw. Performed By: #### T 4FRE #### [address] [address] TSHon 02-12-2023 TSH Qn 0.73 m[IU]/L Normal 0.44 - 3.98 [facility] Comment on above: Result Comment: TSH testing is performed using different testing methodology at [facility] than at [facility]. Direct result comparisons should only be made within the same method. Performed By: #### T SH2 #### [address] [address] PT Progress Noteon 3 PT Progress Note [...] . the patient will continue therapy at [place]. Potential to achieve rehab goals is fair: [...] Declined. Insurance Insurance reviewed Visit number: 10 [facility] Evaluating therapist Shoaib Bhandari PT. The physical [...] code time is 30 minutes. Therapeutic exercise (73438):. Not Today 01/25/23 NuStep 5? Slant board [...] 10 x 10? hold (N). Manual Therapy (38588): timed minutes 15, units 1 . STW to glutes and QL and IT band, hip flexor. Modalities: untimed minutes 15, units 1 . IFC to R Lumbar/Glute region x 10' in S/L w/ MHP. 'Scores and Scales' Signatures Electronically signed by : Zoila Lopez PTA; Jan 25 2023 5:14PM EST (Author) Electronically signed by : Carlene Whitehead, PT; Feb 23 2023 10:49PM EST Normal Touchworks PT Progress Noteon 3 [...] . the patient will continue therapy at [place]. Potential to achieve rehab goals is fair: [...] Declined. Insurance Insurance reviewed Visit number: 9 [facility] Evaluating therapist Shoaib Bhandari PT. The physical therapist of record is the therapist who assumes primary responsibility for patient management and as such is held accountable for the coordination, continuation and progression of the POC. This patient?s care and PT of record will be transferred from Shoaib Bhandari PT to Cralene Stacy DPT effective as of 12/21/22 M51.36; [...] code time is 35 minutes. Therapeutic exercise (24530): timed minutes 20, units 1 . Pt [...] wit (more content not included)... Normal [facility] Re-eval Noteon 01-18 Therapy Re-eval Note [...] . the patient will continue therapy at [place]. Potential to achieve rehab goals is fair: [...] Declined. Insurance Insurance reviewed Visit number: 9 [facility] Evaluating therapist Shoaib Bhandari PT. The physical [...] code time is 35 minutes. Therapeutic exercise (00390): timed minutes 20, units 1 . Pt [...] disc chops (more content not included)... Normal rubberit PT Progress Noteon 3 PT Progress Note [...] . the patient will continue therapy at [place]. Potential to achieve rehab goals is fair: [...] Declined. Insurance Insurance reviewed Visit number: 8 [facility] Evaluating therapist Shoaib Bhandari PT. The physical [...] code time is 38 minutes. Therapeutic exercise (93715): timed minutes 26, units 2 . NuStep [...] 30? D/C to HEP . Manual Therapy (89888): timed minutes 12, units 1 . STW to glutes and QL and IT band. Provided today:. 12/25/22 [id number] Provided and reviewed HEP, patient demosntrated good [...] . the patient will continue therapy at [place]. Potential to achieve rehab goals is fair: [...] Declined. Insurance Insurance reviewed Visit number: 7 [facility] Evaluating therapist Shoaib Bhandari PT. The physical [...] code time is 38 minutes. Therapeutic exercise (31953): timed minutes 26, units 2 . NuStep [...] TrA/LAQ alt 2 x10 (N) Seated on Trei disc [place] lifts with play ball 2 [...] 30? D/C to HEP . Manual Therapy (72163): timed minutes 12, units 1 . STW to glutes and QL and IT band. Provided today:. 12/25/22 [id number] Provided and reviewed HEP, patient demosntrated good understanding. 'Scores and Scales' Signatures Electronically signed by : Chaya Chan, [employer]; Jan 13 2023 11:01AM EST (Author) Electronically signed by : Carlene Whitehead, PT; Jan 17 2023 3:07PM EST Normal Touchworks PT Progress Noteon 3 [...] . the patient will continue therapy at [place]. Potential to achieve rehab goals is fair: [...] Declined. Insurance Insurance reviewed Visit number: 6 [facility] Evaluating therapist Shoaib Bhandari PT. The physical [...] code time is 43 minutes. Therapeutic exercise (63666): timed minutes 32, units 2 . NuStep [...] x 10 Green band . Manual Therapy (35065): timed minutes 11, units 1 . STW to glutes and QL 10'. Provided today:. 12/25/22 [id number] Provided and reviewed HEP, patient demosntrated good understanding. 'Scores and Scales' Signatures Electronically signed by : Chaya Chan, [employer]; Jan 08 2023 10:51AM EST (Author) Electronically [...] . the patient will continue therapy at [place]. Potential to achieve rehab goals is fair: [...] Declined. Insurance Insurance reviewed Visit number: 5 [facility] Evaluating therapist Shoaib Bhandari PT. The physical [...] code time is 44 minutes. Therapeutic exercise (95354): timed minutes 34, units 2 . NuStep [...] 10 Green band (N) . Manual Therapy (73871): timed minutes 10, units 1 . STW to glutes and QL 10'. Provided today:. 12/25/22 [id number] Provided and reviewed HEP, patient demosntrated good understanding. 'Scores and Scales' Signatures Electronically signed by : Zoila Lopez PTA; Jan 06 2023 12:41PM EST (Author) Electronically [...] . the patient will continue therapy at [place]. Potential to achieve rehab goals is fair: [...] Declined. Insurance Insurance reviewed Visit number: 4 [facility] Evaluating therapist Shoaib Bhandari PT. The physical [...] code time is 44 minutes. Therapeutic exercise (16857): timed minutes 34, units 2 . NuStep [...] x 10 orange band . Manual Therapy (68712): timed minutes 10, units 1 . STW to glutes and QL 10'. Provided today:. 12/25/22 [id number] Provided and reviewed HEP, patient demosntrated good understanding. 'Scores and Scales' Signatures Electronically signed by : Zoila Lopez, [employer]; Jan 01 2023 12:56PM EST (Author) Electronically [...] . the patient will continue therapy at [place]. Potential to achieve rehab goals is fair: [...] code time is 44 minutes. Therapeutic exercise (02745): timed minutes 34, units 2 . NuStep [...] x 10 orange band . Manual Therapy (42279): timed minutes 10, units 1 . STW to glutes and QL 10'. Provided today:. 12/25/22 [id number] Provided and reviewed HEP, patient demosntrated good understanding. 'Scores and Scales' Signatures Electronically signed by : Zoila Lopez, [employer]; Dec 30 2022 5:01PM EST (Author) Electronically [...] . the patient will continue therapy at [place]. Potential to achieve rehab goals is fair: [...] Declined. Insurance Insurance reviewed Visit number: 2 [facility] Evaluating therapist Shoaib Bhandari PT. The physical [...] code time is 41 minutes. Therapeutic exercise (15461): timed minutes 31, units 2 . NuStep 5? start wall lean n mini squat x10 LTR x10 5? hold Piriformis stretch 3 x 30? Supine QL stretch 3 x 30? Hip flex stretch EOB TrA x10 5? hold Hooklying TrA/hip add ball 2 x 10 3? hold Hooklying TrA/hip abd 2 x 10 orange band . Manual Therapy (00621): timed minutes 10, units 1 . STW to gluts and QL. Provided today:. 12/25/22 [id number] Provided and reviewed HEP, patient demosntrated good understanding. 'Scores and Scales' Signatures Electronically signed by : Chaya Chan [employer]; Dec 25 2022 10:14AM EST (Author) Electronically signed by : Carlene Whitehead PT; Jan 17 2023 3:06PM EST Normal rubberit PT Initial Evaluationon 12-03 PT Initial Evaluation [...] . the patient will continue therapy at [place]. 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 Assessment At least a 5 yr HX of LBP (previous HX of sciatica). No recent film studies have been done. He will be a low fall risk. The patient will continue his therapy at [place]. Physical findings include limited trunk ROM with [...] Declined. Insurance Insurance reviewed Visit number: 1 [facility] Evaluating therapist Shoaib Bhandari PT. The physical [...] Impact Care:. ID confirmed with B-day; speaks gambian No obtrusive barriers to learning identified/observed. Objective [...] am Time (more content not included)... Normal Touchworks US DOPPLER CAROTIDOrdered By : Mary Vargas on 02-26-2021 Patient Info Name: ENOC ARMANDO Age: 75 years : 1945 Gender: Male Exam Date: 02/26/2021 1:55 PM Patient Status: Outpatient Sales Management Intern: Melissa Swift, TAMMI, RDMS (AB), RVT Referring Physician: MARY VARGAS ; Indications I65.23 - Occlusion and stenosis of bilateral carotid arteries Procedure Description 24629 Duplex examination using B-mode, color and spectral [...] noted in the (more content not included)... [facility] Interface, Rad In [facility] Xper Echopacs - 02/26/2021 4:33 PM EDT Patient Info Name: ENOC ARMANDO Age: 75 years : 1945 Gender: Male Exam Date: 02/26/2021 1:55 PM Patient Status: Outpatient Sales Management Intern: Melissa Swift, BS, RDMS (AB), RVT Referring Physician: MARY VARGAS ; Indications I65.23 - Occlusion and stenosis of bilateral carotid arteries Procedure Description 18465 Duplex examination using B-mode, color and spectral [...] JO-ANN Nguyen DO on 02/26/2021 04:31 PM [facility] Auto Diffon 07-04-2019 Basophils (Bld) [#/Vol] 0.1 E3/mcL Normal 0.0-0.2 [facility] Comment on above: Order Comment: Order Added by Discern Expert. Performed By: #### 2 [id number] #### MIKE [employer] [address] [place] [address] Basophils/100 WBC (Bld) 1.2 % Normal 0.0-2.0 [facility] Comment on above: Order Comment: Order Added by Discern Expert. Performed By: #### 2 [id number] #### MIKE [employer] [address] [place] [address] Eos Absolute 0.2 E3/mcL Normal 0.0-0.7 [facility] Comment on above: Order Comment: Order Added by Discern Expert. Performed By: #### 2 [id number] #### MIKE Rodriguez[address] [address] Eosinophils/100 WBC (Bld) 2.0 % Normal 0.0-11.0 [facility] Comment on above: Order Comment: Order Added by Discern Expert. Performed By: #### 2 253884 #### MIKE [address] [address] Lymphocytes (Bld) [#/Vol] 1.7 E3/mcL Normal 1.2-3.4 [facility] Comment on above: Order Comment: Order Added by Discern Expert. Performed By: #### 2 566962 #### MIKE [address] [address] Lymphocytes/100 WBC (Bld) 20.9 % Normal 20.0-55.0 [facility] Comment on above: Order Comment: Order Added by Discern Expert. Performed By: #### 2 368271 #### MIKE [address] [address] [place] Absolute 0.7 E3/mcL Normal 0.0-0.7 [facility] Comment on above: Order Comment: Order Added by Discern Expert. Performed By: #### 2 380004 #### MIKE Rodriguez[address] [address] Monocytes/100 WBC (Bld) 8.0 % Normal 0.0-10.0 [facility] Comment on above: Order Comment: Order Added by Discern Expert. Performed By: #### 2 793470 #### MIKE [address] [address] Neutro Absolute 5.5 E3/mcL Normal 1.4-6.5 [facility] Comment on above: Order Comment: Order Added by Discern Expert. Performed By: #### 2 769513 #### MIKE [address] [address] Neutro Auto 67.9 % Normal 37.0-75.0 [facility] Comment on above: Order Comment: Order Added by Discern Expert. Performed By: #### 2 786648 #### MIKE [address] [address] CBC w/ Auto Diffon 09-03-201 9 Erythrocyte distribution width (RBC) [Ratio] 13.3 % Normal 11.5-14.5 [facility] Comment on above: Performed By: #### 2 860920 #### [place] [address] [place] [address] Hematocrit (Bld) [Volume fraction] 40.4 % Low 42.0-52.0 [facility] Comment on above: Performed By: #### 2 711700 #### MIKE Rodriguez[address] [address] Hemoglobin (Bld) [Mass/Vol] 13.6 g/dL Normal 13.5-18.0 [facility] Comment on above: Performed By: #### 2 459073 #### MIKE Rodriguez[address] [address] MCH (RBC) [Entitic mass] 31.6 pg High 27.0-31.0 [facility] Comment on above: Performed By: #### 2 809681 #### MIKE Rodriguez[address] [address] MCHC (RBC) [Mass/Vol] 33.7 g/dL Normal 33.0-37.0 [facility] Comment on above: Performed By: #### 2 810877 #### MIKE Rodriguez[address] [address] MCV (RBC) [Entitic vol] 93.8 fL Normal 78.0-100.0 [facility] Comment on above: Performed By: #### 2 295956 #### MIKE Rodriguez[address] [address] Platelet mean volume (Bld) [Entitic vol] 10.2 fL Normal 7.4-11.0 [facility] Comment on above: Performed By: #### 2 480822 #### MIKE Rodriguez[address] [address] Platelets (Bld) [#/Vol] 218 E3/mcL Normal 130-400 [facility] Comment on above: Performed By: #### 2 091733 #### MIKEAnabelle RodriguezPOINT [address] [place] [address] RBC (Bld) [#/Vol] 4.31 E6/mcL Normal 3.90-6.10 [facility] Comment on above: Performed By: #### 2 106271 #### MIKE Zazueta [facility] [place] [address] WBC (Bld) [#/Vol] 8.1 E3/mcL Normal 3.6-11.0 [facility] Comment on above: Performed By: #### 2 143435 #### MIKE Z[facility]eta [facility] [place] [address] CMPon 07-04-2019 Albumin [Mass/Vol] 4.2 g/dL Normal 3.4-5.0 [facility] Comment on above: Performed By: #### 2 113933 #### MIKE Rodriguez[address] [address] Albumin/Globulin [Mass ratio] 1.8 {ratio} Normal 1.1-1.9 [facility] Comment on above: Performed By: #### 2 776268 #### MIKE Zazueta [address] [place] [address] Alk Phos 81 Int._Unit/L Normal 33-136 [facility] Comment on above: Performed By: #### 2 716228 #### MIKE Rodriguez[address] [address] ALT [Catalytic activity/Vol] 15 Int._Unit/L Normal 10-52 [facility] Comment on above: Performed By: #### 2 533455 #### MIKE Zazueta [facility] [place] [address] Anion gap [Moles/Vol] 12 mmol/L Normal 10-20 [facility] Comment on above: Performed By: #### 2 535617 #### MIKEAnabelle Zazueta [facility] [place] [address] AST [Catalytic activity/Vol] 18 Int._Unit/L Normal 9-39 [facility] Comment on above: Performed By: #### 2 472964 #### [place] [address] [place] [address] Bili Total 0.35 mg/dL Normal 0.00-1.20 [facility] Comment on above: Performed By: #### 2 523303 #### MIKE [employer] [address] [place] [address] Calcium [Mass/Vol] 9.5 mg/dL Normal 8.6-10.3 [facility] Comment on above: Performed By: #### 2 427524 #### MIKE [employer] [address] [place] [address] Chloride [Moles/Vol] 108 mmol/L High 98-107 [facility] Comment on above: Performed By: #### 2 480757 #### MIKE [employer] [address] [place] [address] CO2 [Moles/Vol] 27.0 mmol/L Normal 21.0-32.0 [facility] Comment on above: Performed By: #### 2 318903 #### MIKE [employer] [address] [place] [address] Creatinine [Mass/Vol] 1.0 mg/dL Normal 0.5-1.3 [facility] Comment on above: Performed By: #### 2 715558 #### MIKE [employer] [address] [place] [address] Globulin (S) [Mass/Vol] 2.0 g/dL Normal 2.0-4.0 [facility] Comment on above: Performed By: #### 2 438170 #### MIKE [employer] [address] [place] [address] Glucose [Mass/Vol] 159 mg/dL High 70-99 [facility] Comment on above: Performed By: #### 2 494530 #### MIKE [employer] [address] [place] [address] Potassium [Moles/Vol] 3.7 mmol/L Normal 3.5-5.3 [facility] Comment on above: Performed By: #### 2 620003 #### MIKE [employer] [address] [place] [address] Protein [Mass/Vol] 6.5 g/dL Normal 6.4-8.2 [facility] Comment on above: Performed By: #### 2 738960 #### MIKE [employer] [address] [place] [address] Sodium [Moles/Vol] 143 mmol/L Normal 136-145 [facility] Comment on above: Performed By: #### 2 628913 #### MIKE RodriguezChem [facility] [place] [address] Urea nitrogen [Mass/Vol] 19 mg/dL Normal 6-23 [facility] Comment on above: Performed By: #### 2 961575 #### MIKE [employer]Chem [address] [place] [address] Urea nitrogen/Creatinine [Mass ratio] 19.0 ratio Normal 5.4-30.0 [facility] Comment on above: Performed By: #### 2 255312 #### [place] [address] [place] [address] [id number] 07-04-2019 HbA1c (Bld) [Mass fraction] 8.3 % High 4.0-6.3 [facility] Comment on above: Performed By: #### 2 071139 #### MIKE [employer]Chem [address] [place] [address] eGFRon 07-04-2019 GFR/1.73 sq M predicted among non-blacks MDRD (S/P/Bld) [Vol rate/Area] mL/min/{1.73_m2} Normal [facility] Comment on above: Order Comment: Order added by Discern Expert. Performed By: #### 2 271658 #### MIKE RodriguezChem [facility] [place] [address] Auto Diffon 03-03-2019 Basophils (Bld) [#/Vol] 0.1 E3/mcL Normal 0.0-0.2 [facility] Comment on above: Order Comment: Order Added by Discern Expert. Performed By: #### 2 671975 #### MIKE RodriguezHemo [facility] [place] [address] Basophils/100 WBC (Bld) 1.0 % Normal 0.0-2.0 [facility] Comment on above: Order Comment: Order Added by Discern Expert. Performed By: #### 2 647549 #### MIKE RemHemo [address] [place] [address] Eos Absolute 0.2 E3/mcL Normal 0.0-0.7 [facility] Comment on above: Order Comment: Order Added by Discern Expert. Performed By: #### 2 060832 #### MIKE RemHemo [address] [place] [address] Eosinophils/100 WBC (Bld) 2.6 % Normal 0.0-11.0 [facility] Comment on above: Order Comment: Order Added by Discern Expert. Performed By: #### 2 582394 #### MIKE RemHemo [address] [place] [address] Lymphocytes (Bld) [#/Vol] 2.0 E3/mcL Normal 1.2-3.4 [facility] Comment on above: Order Comment: Order Added by Discern Expert. Performed By: #### 2 714868 #### MIKE RemHemo [address] [place] [address] Lymphocytes/100 WBC (Bld) 26.7 % Normal 20.0-55.0 [facility] Comment on above: Order Comment: Order Added by Discern Expert. Performed By: #### 2 705678 #### MIKE RemHemo [address] [place] [address] [place] Absolute 0.7 E3/mcL Normal 0.0-0.7 [facility] Comment on above: Order Comment: Order Added by Discern Expert. Performed By: #### 2 837293 #### MIKE RemHemo [address] [place] [address] Monocytes/100 WBC (Bld) 9.4 % Normal 0.0-10.0 [facility] Comment on above: Order Comment: Order Added by Discern Expert. Performed By: #### 2 052238 #### MIKE RemHemo [address] [place] [address] Neutro Absolute 4.5 E3/mcL Normal 1.4-6.5 [facility] Comment on above: Order Comment: Order Added by Discern Expert. Performed By: #### 2 817145 #### MIKE RemHemo [address] [place] [address] Neutro Auto 60.3 % Normal 37.0-75.0 [facility] Comment on above: Order Comment: Order Added by Discern Expert. Performed By: #### 2 012846 #### MIKE RodriguezHemo [address] [place] [address] CBC w/ Auto Diffon Erythrocyte distribution width (RBC) [Ratio] 13.2 % Normal 11.5-14.5 [facility] Comment on above: Performed By: #### 2 916604 #### MIKE RodriguezHemo [address] [place] [address] Hematocrit (Bld) [Volume fraction] 41.7 % Low 42.0-52.0 [facility] Comment on above: Performed By: #### 2 215641 #### MIKE RemHemo [address] [place] [address] Hemoglobin (Bld) [Mass/Vol] 14.1 g/dL Normal 13.5-18.0 [facility] Comment on above: Performed By: #### 2 896217 #### MIKE RodriguezHemo [address] [place] [address] MCH (RBC) [Entitic mass] 31.5 pg High 27.0-31.0 [facility] Comment on above: Performed By: #### 2 266792 #### MIKE RemHemo [address] [place] [address] MCHC (RBC) [Mass/Vol] 33.7 g/dL Normal 33.0-37.0 [facility] Comment on above: Performed By: #### 2 421331 #### MIKE RodriguezHemo [address] [place] [address] MCV (RBC) [Entitic vol] 93.5 fL Normal 78.0-100.0 [facility] Comment on above: Performed By: #### 2 542354 #### MIKE RemHemo [address] [place] [address] Platelet mean volume (Bld) [Entitic vol] 10.0 fL Normal 7.4-11.0 [facility] Comment on above: Performed By: #### 2 634180 #### MIKE RemHemo [address] [place] [address] Platelets (Bld) [#/Vol] 218 E3/mcL Normal 130-400 [facility] Comment on above: Performed By: #### 2 723839 #### MIKE RemHemo [address] [place] [address] RBC (Bld) [#/Vol] 4.46 E6/mcL Normal 3.90-6.10 [facility] Comment on above: Performed By: #### 2 563367 #### MIKE RemHemo [address] [place] [address] WBC (Bld) [#/Vol] 7.5 E3/mcL Normal 3.6-11.0 [facility] Comment on above: Performed By: #### 2 599494 #### MIKE RemHemo [address] [place] [address] CMPon 03-03-2019 Albumin [Mass/Vol] 4.1 g/dL Normal 3.4-5.0 [facility] Comment on above: Performed By: #### 2 235691 #### MIKE [employer] [address] [place], [place] [address] Albumin/Globulin [Mass ratio] 1.6 {ratio} Normal 1.1-1.9 [facility] Comment on above: Performed By: #### 2 083928 #### MIKE [employer] [address] [place] [address] Alk Phos 83 Int._Unit/L Normal 33-136 [facility] Comment on above: Performed By: #### 2 109209 #### MIKE [employer] [address] [place] [address] ALT [Catalytic activity/Vol] 13 Int._Unit/L Normal 10-52 [facility] Comment on above: Performed By: #### 2 511706 #### MIKE [employer] [address] [place] [address] Anion gap [Moles/Vol] 9 mmol/L Low 10-20 [facility] Comment on above: Performed By: #### 2 156963 #### MIKE [employer] [address] [place] [address] AST [Catalytic activity/Vol] 16 Int._Unit/L Normal 9-39 [facility] Comment on above: Performed By: #### 2 091939 #### MIKE [employer] [address] [place] [address] Bili Total 0.55 mg/dL Normal 0.00-1.20 [facility] Comment on above: Performed By: #### 2 791319 #### [facility] [employer] [address] [place] [address] Calcium [Mass/Vol] 9.3 mg/dL Normal 8.6-10.3 [facility] Comment on above: Performed By: #### 2 191420 #### MIKE [employer] [address] [place] [address] Chloride [Moles/Vol] 105 mmol/L Normal 98-107 [facility] Comment on above: Performed By: #### 2 298605 #### MIKE [employer] [address] [place] [address] CO2 [Moles/Vol] 28.0 mmol/L Normal 21.0-32.0 [facility] Comment on above: Performed By: #### 2 139865 #### [facility] [employer] [address] [place] [address] Creatinine [Mass/Vol] 1.0 mg/dL Normal 0.5-1.3 [facility] Comment on above: Performed By: #### 2 198003 #### MIKE [employer] [address] [place] [address] Globulin (S) [Mass/Vol] 3.0 g/dL Normal 2.0-4.0 [facility] Comment on above: Performed By: #### 2 493972 #### MIKE [employer] [address] [place] [id number] Glucose [Mass/Vol] 273 mg/dL High 70-99 [facility] Comment on above: Performed By: #### 2 [id number] #### MIKE [employer] [address] [place] [address] 84624 Potassium [Moles/Vol] 4.2 mmol/L Normal 3.5-5.3 [facility] Comment on above: Performed By: #### 2 [id number] #### [employer] [address] [place] [address] 15006 Protein [Mass/Vol] 6.6 g/dL Normal 6.4-8.2 [facility] Comment on above: Performed By: #### 2 [id number] #### [employer]KE [employer] [address] [place] [address] Sodium [Moles/Vol] 138 mmol/L Normal 136-145 [facility] Comment on above: Performed By: #### 2 [id number] #### [employer]KE [employer] [address] [place] [address] Urea nitrogen [Mass/Vol] 20 mg/dL Normal 6-23 [facility] Comment on above: Performed By: #### 2 [id number] #### [employer] [address] [place] [address] Urea nitrogen/Creatinine [Mass ratio] 20.0 ratio Normal 5.4-30.0 [facility] Comment on above: Performed By: #### 2 [id number] #### [employer] [address] [place] [address] 12783 Free T4on 03-03-2019 Free T4 [Mass/Vol] 0.98 ng/dL Normal 0.58-1.64 [facility] Comment on above: Performed By: #### 2 [id number] #### MIKE [employer] [address] [place] [address] [id number] 03-03-2019 HbA1c (Bld) [Mass fraction] 8.4 % High 4.0-6.3 [facility] Comment on above: Performed By: #### 2 [id number] #### MIKE [employer] [address] [place] [address] Lipid Profileon 03-03-2019 Cholesterol [Mass/Vol] 164 mg/dL Normal 0-199 [facility] Comment on above: Result Comment: TOTA L CHOLEESTEROL: <200 NORMAL 200 - 239 BORDERLINE HIGH >240 HIGH Performed By: #### 2 [id number] #### MIKE [employer] [address] [place] [address] Cholesterol in HDL [Mass/Vol] 53 mg/dL Normal 40-60 [facility] Comment on above: Performed By: #### 2 [id number] #### [employer] [address] [place] [address] Cholesterol in LDL [Mass/Vol] 98 mg/dL Normal 0-130 [facility] Comment on above: Result Comment: <100 OPTIMAL 100-129 NEAR / ABOVE OPTIMAL 130-159 BORDERLINE HIGH 160-189 HIGH >190 VERY HIGH CALC LDL NOT VALID WHEN TRIGLYCERIDE IS >400 MG/DL Performed By: #### 2 [id number] #### [employer]KE [employer] [facility] [place] [address] Cholesterol in VLDL [Mass/Vol] 13 mg/dL Normal 0-40 [facility] Comment on above: Performed By: #### 2 [id number] #### [employer] [facility] [place] [address] Triglyceride [Mass/Vol] 66 mg/dL Normal 0-149 [facility] Comment on above: Result Comment: AGE DESIRABLE BORDERLINE HIGH 91 D - 9 Y 0 - 74 75 - 99 > 100 10 - 19 Y 0 - 89 90 - 129 > 130 20 -24 Y 0 - 114 115 - 149 > 150 > 25 0 - 149 150 - 199 200 - 499 Performed By: #### 2 [id number] #### [employer] [address] [place] [address]1202 Microalb/Creat Ratioon 03-03 Creatinine [Mass/Vol] 111.0 mg/dL Normal 20.0-300.0 [facility] Comment on above: Performed By: #### 1 [id number] #### MIKE [employer] [address] [place] [address] 17697 Creatinine [Mass/Vol] 95 ug/mg High 0-30 [facility] Comment on above: Performed By: #### 1 [id number] #### [employer] [address] [place] [address] 19238 Ur Microalbumin 10.6 mg/dL High 0.0-1.9 [facility] Comment on above: Performed By: #### 1 [id number] #### [employer] [address] [place] [address] 24708 TSHon 03-03-2019 TSH Qn 0.52 mcIU/mL Normal 0.30-5.60 [facility] Comment on above: Performed By: #### 2 [id number] #### [employer] [address] [place] [address] 85517 eGFRon 03-03-2019 GFR/1.73 sq M predicted among non-blacks MDRD (S/P/Bld) [Vol rate/Area] mL/min/{1.73_m2} Normal [facility] Comment on above: Order Comment: Order added by Discern Expert. Performed By: #### 1 [id number] #### MIKE [employer] [address] [place] [id number] XR Spine Lumbosacral Complet e w/ Bendingon 02-08-2019 XR Spine Lumbosacral Complete w/ Bending Exam Date/Time: 02/08/2019 11:16 EDT Reason for Exam: M54.16 Report STUDY: XR Spine Lumbosacral Complete w/ Bending; 02/08/2019 11:16 am INDICATION: M54.16. COMPARISON: 08/12/2018 ACCESSION NUMBER(S): [id number] ORDERING CLINICIAN: Yamilex Muro FINDINGS: 8 views of the lumbar spine including supine and standing AP, lateral and lateral flexion and extension views were obtained. There is no acute fracture identified. There is mild retrolisthesis of L2 on L3 and of L3 on L4. Enju-em-ffouctiy disc space narrowing and marginal osteophyte formation [...] by: Jaret Walker MD Technologist: GEE Normal [facility] CMPon 11-02-2018 Albumin [Mass/Vol] 4.2 g/dL Normal 3.4-5.0 [facility] Comment on above: Performed By: #### 2 [id number] #### MIKE [employer] [address] [place] [id number] Albumin/Globulin [Mass ratio] 1.8 {ratio} Normal 1.1-1.9 [facility] Comment on above: Performed By: #### 2 [id number] #### MIKE [employer] [address] [place] [address] Alk Phos 98 Int._Unit/L Normal 33-136 [facility] Comment on above: Performed By: #### 2 [id number] #### MIKE [employer] [facility] [place] [address] ALT [Catalytic activity/Vol] 18 Int._Unit/L Normal 10-52 [facility] Comment on above: Performed By: #### 2 [id number] #### [employer] [facility] [place] [address] Anion gap [Moles/Vol] 10 mmol/L Normal 10-20 [facility] Comment on above: Performed By: #### 2 [id number] #### [employer] [facility] [place] [address] AST [Catalytic activity/Vol] 17 Int._Unit/L Normal 9-39 [facility] Comment on above: Performed By: #### 2 [id number] #### [employer] [facility] [place] [address] Bili Total 0.39 mg/dL Normal 0.00-1.20 [facility] Comment on above: Performed By: #### 2 [id number] #### [employer] [address] [place] [address] Calcium [Mass/Vol] 9.7 mg/dL Normal 8.6-10.3 [facility] Comment on above: Performed By: #### 2 [id number] #### [employer] [address] [place] [address] Chloride [Moles/Vol] 106 mmol/L Normal 98-107 [facility] Comment on above: Performed By: #### 2 297367 #### [employer] [address] [place] [address] CO2 [Moles/Vol] 27.0 mmol/L Normal 21.0-32.0 [facility] Comment on above: Performed By: #### 2 [id number] #### [employer] [address] [place] [address] Creatinine [Mass/Vol] 1.2 mg/dL Normal 0.5-1.3 [facility] Comment on above: Performed By: #### 2 375381 #### [employer] [address] [place] [address] Globulin (S) [Mass/Vol] 2.0 g/dL Normal 2.0-4.0 [facility] Comment on above: Performed By: #### 2 [id number] #### [employer] [address] [place] [address] Glucose [Mass/Vol] 307 mg/dL High 70-99 [facility] Comment on above: Performed By: #### 2 [id number] #### [employer] [address] [place] [address] Potassium [Moles/Vol] 3.9 mmol/L Normal 3.5-5.3 [facility] Comment on above: Performed By: #### 2 935456 #### [employer] [address] [place] [address] 17518 Protein [Mass/Vol] 6.5 g/dL Normal 6.4-8.2 [facility] Comment on above: Performed By: #### 2 [id number] #### [employer] [address] [place] [address] 31768 Sodium [Moles/Vol] 139 mmol/L Normal 136-145 [facility] Comment on above: Performed By: #### 2 747643 #### [employer] [address] [place] [address] 06265 Urea nitrogen [Mass/Vol] 23 mg/dL Normal 6-23 [facility] Comment on above: Performed By: #### 2 [id number] #### [employer] [address] [place] [address] 66574 Urea nitrogen/Creatinine [Mass ratio] 19.2 ratio Normal 5.4-30.0 [facility] Comment on above: Performed By: #### 2 [id number] #### [employer] [address] [place] [address] [id number] 11-02-2018 HbA1c (Bld) [Mass fraction] 8.4 % High 4.0-6.3 [facility] Comment on above: Performed By: #### 3 [id number] #### MIKE Chemistry Manual Subsection [address] [place] [address] 11969 eGFRon 11-02-2018 GFR/1.73 sq M predicted among non-blacks MDRD (S/P/Bld) [Vol rate/Area] mL/min/{1.73_m2} Normal [facility] Comment on above: Order Comment: Order added by Discern Expert. Performed By: #### 1 [id number] #### MIKE [employer] [facility] [place] [address] XR Spine Lumbar w/ Obliqueso n 08-13-2018 XR Spine Lumbar w/ Obliques Exam Date/Time: 08/12/2018 14:38 EDT Reason for Exam: low back pain with left sided sciatica Report STUDY: XR Spine Lumbar w/ Obliques; 08/12/2018 2:38 pm INDICATION: low back pain with left sided sciatica. COMPARISON: None. ACCESSION NUMBER(S): [id number] ORDERING CLINICIAN: Nancy Mirza FINDINGS: Five views of the lumbar spine including AP, lateral, lateral cone-down and bilateral oblique views were obtained. There is no acute fracture identified. There is mild retrolisthesis of L2 on L3 and of L3 on L4. Rdld-iq-ncbtejcy disc space narrowing and marginal osteophyte formation [...] by: Jaret Walker MD Technologist: KAVITA Normal [facility] Carotid Duplexon 02-09-2018 Carotid Duplex Non-Invasive Vascular Patient: TR Titus [facility] Rec#: [id number] (Age): 1945(72y) Study Date: 02/09/2018 Room#: Type: Sex: M Reading: AALIYAH Reading: Flo Abdi DO, RPVI Referring: NANCY MIRZA JOHN Audit Control Clerk: Christie Trinidad Procedure Info: [id number]... Study Quality: Carotid Duplex: adequate Diagnosis: I65.23 [...] Carotid Duplex Interface, Rad [facility] - 02/09/2018 4:37 PM EDT Non-Invasive Vascular Patient: TR Titus [facility] Rec#: [id number] (Age): 1945(72y) Study Date: 02/09/2018 Room#: Type: Sex: M Reading: AALIYAH Reading: Flo Abdi DO, RPVI Referring: NANCY MIRZA JOHN Audit Control Clerk: Christie Trinidad Procedure Info: [id number]... Study Quality: Carotid Duplex: adequate Diagnosis: I65.23 [...] Flo Abdi DO, RPVI Invalid Interpretation Code [facility] RAD Vital Signs Date Time Vital Sign Value Performing Clinician Facility 05-09-2025 14:42-0400 Heart rate 60 /min Ryley Jeter MD Work Phone: [facility] 05-09-2025 14:28-0400 Body height 170.18 cm Ryley Jeter MD Work Phone: [facility] 05-09-2025 14:28-0400 Body weight 67.4 kg Ryley Jeter MD Work Phone: [facility] 05-09-2025 14:26-0400 Inhaled oxygen flow rate 3 L/min Ryley Jeter MD Work Phone: [facility] 05-09-2025 13:45-0400 SaO2% (BldA) [Mass fraction] 99 % Ryley Jeter MD Work Phone: [facility] 05-09-2025 11:09-0400 Respiratory rate 16 /min Ryley Jeter MD Work Phone: [facility] 05-09-2025 09:45-0400 Body temperature 97.9 [degF] Ryley Jeter MD Work Phone: [facility] 05-09-2025 09:45-0400 Diastolic blood pressure 96 mm[Hg] Ryley Jeter MD Work Phone: [facility] 05-09-2025 09:45-0400 Systolic blood pressure 133 mm[Hg] Ryley Jeter MD Work Phone: [facility] 05-09-2025 05:43-0400 Body mass index (BMI) [Ratio] 23.3 kg/m2 Ryley Jeter MD Work Phone: [facility] 05-06-2025 06:47-0400 Inhaled oxygen concentration 30 % Ryley Jeter MD Work Phone: [facility] 05-05-2025 22:00-0400 Body temperature 97.1 [degF] Ryley Jeter MD Work Phone: [facility] 05-05-2025 22:00-0400 Diastolic blood pressure 59 mm[Hg] Ryley Jeter MD Work Phone: [facility] 05-05-2025 22:00-0400 Heart rate 76 /min Ryley Jeter MD Work Phone: [facility] 05-05-2025 22:00-0400 Respiratory rate 15 /min Ryley Jeter MD Work Phone: 5(993)020-159[address] [place] [address] 05-05-2025 22:00-0400 SaO2% (BldA) [Mass fraction] 96 % Ryley Jeter MD Work Phone: [facility] 05-05-2025 22:00-0400 Systolic blood pressure 133 mm[Hg] Ryley Jeter MD Work Phone: [facility] 05-05-2025 20:14-0400 Inhaled oxygen concentration 50 % Ryley Jeter MD Work Phone: [facility] 05-05-2025 19:39-0400 Body height 167.64 cm Ryley Jeter MD Work Phone: [facility] 05-05-2025 19:39-0400 Body mass index (BMI) [Ratio] 23.6 kg/m2 Ryley Jeter MD Work Phone: [facility] 05-05-2025 19:39-0400 Body weight 66.2 kg Ryley Jeter MD Work Phone: [facility] 05-01-2025 11:06-0400 Body height 170.2 cm Maricruz BERMAN DNP Work Phone: [facility] 05-01-2025 11:06-0400 Body mass index (BMI) [Ratio] 22.12 kg/m2 Maricruz Albert JOIE BERMAN Work Phone: [facility] 05-01-2025 11:06-0400 Body weight 64.05 kg Maricruz Albert APRNMonserratJOIE HUDSON Work Phone: [facility] 05-01-2025 11:06-0400 Diastolic blood pressure 68 mm[Hg] Maricruz Juanito BERMAN DNP Work Phone: [facility] 05-01-2025 11:06-0400 Heart rate 47 /min Maricruz Juanito BERMAN DNP Work Phone: [facility] 05-01-2025 11:06-0400 Systolic blood pressure 142 mm[Hg] Maricruz Juanito BERMAN DNP Work Phone: [facility] 04-22-2025 13:43-0400 Body temperature 97.5 [degF] Ryley Jeter MD Work Phone: [facility] 04-22-2025 13:43-0400 Diastolic blood pressure 89 mm[Hg] Ryley Jeter MD Work Phone: [facility] 04-22-2025 13:43-0400 Heart rate 112 /min Ryley Jeter MD Work Phone: [facility] 04-22-2025 13:43-0400 Inhaled oxygen flow rate 2 L/min Ryley Jeter MD Work Phone: [facility] 04-22-2025 13:43-0400 Respiratory rate 18 /min Ryley Jeter MD Work Phone: [facility] 04-22-2025 13:43-0400 SaO2% (BldA) [Mass fraction] 100 % Ryley Jeter MD Work Phone: [facility] 04-22-2025 13:43-0400 Systolic blood pressure 138 mm[Hg] Ryley Jeter MD Work Phone: [facility] 04-22-2025 05:31-0400 Body mass index (BMI) [Ratio] 23.6 kg/m2 Ryley Jeter MD Work Phone: [facility] 04-22-2025 05:31-0400 Body weight 66.45 kg Ryley Jeter MD Work Phone: [facility] 04-19-2025 11:24-0400 Body height 167.64 cm Ryley Jeter MD Work Phone: [facility] 04-19-2025 09:21-0400 Inhaled oxygen concentration 45 % Ryley Jeter MD Work Phone: [facility] 04-19-2025 03:00-0400 Body temperature 97.7 [degF] Ryley Jeter MD Work Phone: [facility] 04-19-2025 03:00-0400 Diastolic blood pressure 54 mm[Hg] Ryley Jeter MD Work Phone: [facility] 04-19-2025 03:00-0400 Heart rate 97 /min Ryley Jeter MD Work Phone: [facility] 04-19-2025 03:00-0400 Inhaled oxygen flow rate 50 L/min Ryley Jeter MD Work Phone: [facility] 04-19-2025 03:00-0400 Respiratory rate 16 /min Ryley Jeter MD Work Phone: [facility] 04-19-2025 03:00-0400 SaO2% (BldA) [Mass fraction] 98 % Ryley Jeter MD Work Phone: [facility] 04-19-2025 03:00-0400 Systolic blood pressure 134 mm[Hg] Ryley Jeter MD Work Phone: [facility] 04-19-2025 00:50-0400 Inhaled oxygen concentration 50 % Ryley Jeter MD Work Phone: [facility] 04-19-2025 00:00-0400 Body height 170.18 cm Ryley Jeter MD Work Phone: [facility] 04-19-2025 00:00-0400 Body mass index (BMI) [Ratio] 24.4 kg/m2 Ryley Jeter MD Work Phone: [facility] 04-19-2025 00:00-0400 Body weight 70.76 kg Ryley Jeter MD Work Phone: [facility] 04-10-2025 15:10-0400 Diastolic blood pressure 78 mm[Hg] Ryley Jeter MD Work Phone: 5(228)950-136887 [address] 04-10-2025 15:10-0400 Heart rate 80 /min Ryley Jeter MD Work Phone: 6(541)422-878287 [address] 04-10-2025 15:10-0400 Systolic blood pressure 144 mm[Hg] Ryley Jeter MD Work Phone: 0(841)997-827872 [place] [address] 04-10-2025 15:00-0400 Body temperature 98.1 [degF] Ryley Jeter MD Work Phone: [facility] 04-10-2025 15:00-0400 SaO2% (BldA) [Mass fraction] 95 % Ryley Jeter MD Work Phone: [facility] 04-10-2025 13:39-0400 Respiratory rate 16 /min Ryley Jeter MD Work Phone: [facility] 04-10-2025 09:38-0400 Inhaled oxygen flow rate 2 L/min Ryley Jeter MD Work Phone: [facility] 04-10-2025 09:38-0400 SaO2% (BldA) [Mass fraction] 98 % Ryley Jeter MD Work Phone: [facility] 04-10-2025 08:45-0400 Body temperature 97.9 [degF] Ryley Jeter MD Work Phone: 8(431)[phone] [address] 04-10-2025 03:42-0400 Body mass index (BMI) [Ratio] 22.3 kg/m2 Ryley Jeter MD Work Phone: [facility] 04-10-2025 03:42-0400 Body weight 64.7 kg Ryley Jeter MD Work Phone: [facility] 04-10-2025 00:32-0400 Inhaled oxygen concentration 30 % Ryley Jeter MD Work Phone: [facility] 04-09-2025 14:07-0400 Body height 170.18 cm Ryley Jeter MD Work Phone: [facility] 04-03-2025 05:40-0400 Heart rate 110 /min Ryley Jeter MD Work Phone: [facility] 04-03-2025 05:40-0400 Inhaled oxygen concentration 30 % Ryley Jeter MD Work Phone: 3(527)221-182672 [place] [address] 04-03-2025 05:40-0400 Respiratory rate 21 /min Ryley Jeter MD Work Phone: [facility] 04-03-2025 05:40-0400 SaO2% (BldA) [Mass fraction] 98 % Ryley Jeter MD Work Phone: [facility] 04-03-2025 05:17-0400 Body height 170.18 cm Ryley Jeter MD Work Phone: [facility] 04-03-2025 05:17-0400 Body mass index (BMI) [Ratio] 21.2 kg/m2 Ryley Jeter MD Work Phone: [facility] 04-03-2025 05:17-0400 Body temperature 98 [degF] Ryley Jeter MD Work Phone: [facility] 04-03-2025 05:17-0400 Body weight 61.5 kg Ryley Jeter MD Work Phone: [facility] 04-03-2025 05:17-0400 Diastolic blood pressure 77 mm[Hg] Ryley Jeter MD Work Phone: [facility] 04-03-2025 05:17-0400 Systolic blood pressure 167 mm[Hg] Ryley Jeter MD Work Phone: [facility] 04-03-2025 03:00-0400 Inhaled oxygen flow rate 4 L/min Ryley Jeter MD Work Phone: [facility] 03-12-2025 13:50-0400 Body mass index (BMI) [Ratio] 21.9 kg/m2 Patyavinash Ortega [employer] Work Phone: [facility] 03-12-2025 13:50-0400 Body weight 63.41 kg Paty Ortega [employer] Work Phone: [facility] 03-12-2025 13:50-0400 Diastolic blood pressure 61 mm[Hg] Paty Ortega [employer] Work Phone: [facility] 03-12-2025 13:50-0400 Heart rate 69 /min Paty Ortega [employer] Work Phone: [facility] 03-12-2025 13:50-0400 Systolic blood pressure 166 mm[Hg] Patyavinash Ortega [employer] Work Phone: [facility] 03-09-2025 09:42-0400 Body height 170.2 cm Woo Small MD Work Phone: [facility] 03-09-2025 09:42-0400 Body mass index (BMI) [Ratio] 21.9 kg/m2 Woo Small MD Work Phone: [facility] 03-09-2025 09:42-0400 Body weight 63.41 kg Woo Small MD Work Phone: [facility] 03-09-2025 09:42-0400 Diastolic blood pressure 54 mm[Hg] Woo Small MD Work Phone: [facility] 03-09-2025 09:42-0400 Heart rate 73 /min Woo Small MD Work Phone: [facility] 03-09-2025 09:42-0400 SaO2% (BldA) [Mass fraction] 98 % Woo Small MD Work Phone: [facility] 03-09-2025 09:42-0400 Systolic blood pressure 172 mm[Hg] Woo Small MD Work Phone: [facility] 02-26-2025 13:01-0400 Body height 172.7 cm Ayanna Albert DO Work Phone: [facility] 02-26-2025 13:01-0400 Body mass index (BMI) [Ratio] 21.47 kg/m2 Ayanna Albert DO Work Phone: [facility] 02-26-2025 13:01-0400 Body weight 64.05 kg Ayanna Albert DO Work Phone: [facility] 02-26-2025 13:01-0400 Diastolic blood pressure 68 mm[Hg] Ayanna Albert DO Work Phone: [facility] 02-26-2025 13:01-0400 Heart rate 72 /min Ayanna Albret DO Work Phone: [facility] 02-26-2025 13:01-0400 Systolic blood pressure 158 mm[Hg] Ayanna Young DO Work Phone: [facility] 11-14-2024 10:44-0500 Diastolic blood pressure 61 mm[Hg] Woo Small MD Work Phone: [facility] 11-14-2024 10:44-0500 Heart rate 57 /min Woo Small MD Work Phone: [facility] 11-14-2024 10:44-0500 SaO2% (BldA) [Mass fraction] 96 % Woo Small MD Work Phone: [facility] 11-14-2024 10:44-0500 Systolic blood pressure 185 mm[Hg] Woo Small MD Work Phone: [facility] 11-14-2024 10:37-0500 Body height 170.2 cm Woo Small MD Work Phone: [facility] 11-14-2024 10:37-0500 Body mass index (BMI) [Ratio] 23.57 kg/m2 Woo mSall MD Work Phone: [facility] 11-14-2024 10:37-0500 Body weight 68.27 kg Woo Small MD Work Phone: [facility] 11-13-2024 11:16-0500 Body mass index (BMI) [Ratio] 23.45 kg/m2 Paty Ortega [employer] Work Phone: [facility] 11-13-2024 11:16-0500 Body weight 67.9 kg Paty Ortega [employer] Work Phone: [facility] 11-13-2024 11:16-0500 Diastolic blood pressure 51 mm[Hg] Paty Ortega [employer] Work Phone: [facility] 11-13-2024 11:16-0500 Heart rate 71 /min Paty Ortega [employer] Work Phone: [facility] 11-13-2024 11:16-0500 Systolic blood pressure 107 mm[Hg] Paty Ortega [employer] Work Phone: [facility] 11-09-2024 10:42-0500 Diastolic blood pressure 64 mm[Hg] Kristy Parker MD Work Phone: [facility] 11-09-2024 10:42-0500 Heart rate 58 /min Kristy Parker MD Work Phone: [facility] 11-09-2024 10:42-0500 Systolic blood pressure 160 mm[Hg] Kristy Parker MD Work Phone: [facility] 11-09-2024 10:32-0500 Body height 170.2 cm Kristy Parker MD Work Phone: [facility] 11-09-2024 10:32-0500 Body mass index (BMI) [Ratio] 23.18 kg/m2 Kristy Parker MD Work Phone: [facility] 11-09-2024 10:32-0500 Body weight 67.13 kg Kristy Parker MD Work Phone: [facility] 11-07-2024 09:54-0500 Diastolic blood pressure 61 mm[Hg] Brock Groves MD Work Phone: [facility] 11-07-2024 09:54-0500 Systolic blood pressure 143 mm[Hg] Brock Groves MD Work Phone: [facility] 11-07-2024 09:51-0500 Body height 170.2 cm Brock Groves MD Work Phone: [facility] 11-07-2024 09:51-0500 Body mass index (BMI) [Ratio] 23.02 kg/m2 Brock Groves MD Work Phone: [facility] 11-07-2024 09:51-0500 Body temperature 97.39 [degF] Brock Groves MD Work Phone: [facility] 11-07-2024 09:51-0500 Body weight 66.68 kg Brock Groves MD Work Phone: [facility] 11-07-2024 09:51-0500 Heart rate 63 /min Brock Groves MD Work Phone: [facility] 11-07-2024 09:51-0500 SaO2% (BldA) [Mass fraction] 100 % Brock Groves MD Work Phone: [facility] 10-28-2024 11:06-0500 Diastolic blood pressure 51 mm[Hg] Nidia Garay MD Work Phone: [facility] 10-28-2024 11:06-0500 Heart rate 68 /min Nidia Garay MD Work Phone: [facility] 10-28-2024 11:06-0500 Respiratory rate 14 /min Nidia Garay MD Work Phone: [facility] 10-28-2024 11:06-0500 SaO2% (BldA) [Mass fraction] 94 % Nidia Garay MD Work Phone: [facility] 10-28-2024 11:06-0500 Systolic blood pressure 153 mm[Hg] Nidia Garay MD Work Phone: [facility] 10-28-2024 07:24-0500 Body temperature 97.59 [degF] Nidia Garay MD Work Phone: [facility] 10-28-2024 05:11-0500 Body mass index (BMI) [Ratio] 22.44 kg/m2 Nidia Garay MD Work Phone: [facility] 10-28-2024 05:11-0500 Body weight 65 kg Nidia Garay MD Work Phone: [facility] 10-27-2024 16:36-0500 Body height 170.2 cm Nidia Garay MD Work Phone: [facility] 10-27-2024 14:18-0500 SaO2% (BldA) [Mass fraction] 97.3 % Nidia Garay MD Work Phone: [facility] 10-18-2024 13:46-0500 Diastolic blood pressure 61 mm[Hg] Woo Small MD Work Phone: [facility] 10-18-2024 13:46-0500 Heart rate 67 /min Woo Small MD Work Phone: [facility] 10-18-2024 13:46-0500 SaO2% (BldA) [Mass fraction] 100 % Woo Small MD Work Phone: [facility] 10-18-2024 13:46-0500 Systolic blood pressure 103 mm[Hg] Woo Small MD Work Phone: [facility] 10-18-2024 13:27-0500 Body height 172.7 cm Woo Small MD Work Phone: [facility] 10-18-2024 13:27-0500 Body mass index (BMI) [Ratio] 22.52 kg/m2 Woo Small MD Work Phone: [facility] 10-18-2024 13:27-0500 Body weight 67.18 kg Woo Small MD Work Phone: [facility] 08-29-2024 13:04-0400 Diastolic blood pressure 72 mm[Hg] Ayanna Young DO Work Phone: [facility] 08-29-2024 13:04-0400 Systolic blood pressure 168 mm[Hg] Ayanna Young DO Work Phone: [facility] 08-29-2024 12:57-0400 Body height 172.7 cm Ayanna Young DO Work Phone: [facility] 08-29-2024 12:57-0400 Body mass index (BMI) [Ratio] 22.72 kg/m2 Ayanna Young DO Work Phone: [facility] 08-29-2024 12:57-0400 Body weight 67.77 kg Ayanna Young DO Work Phone: [facility] 08-29-2024 12:57-0400 Heart rate 64 /min Ayanna Young DO Work Phone: [facility] 07-21-2024 14:12-0400 Diastolic blood pressure 68 mm[Hg] Paty Ortega [employer] Work Phone: [facility] 07-21-2024 14:12-0400 Systolic blood pressure 166 mm[Hg] Paty Ortega [employer] Work Phone: [facility] 07-21-2024 13:38-0400 Body mass index (BMI) [Ratio] 22.44 kg/m2 Paty Ortega [employer] Work Phone: [facility] 07-21-2024 13:38-0400 Body weight 66.95 kg Paty Ortega [employer] Work Phone: [facility] 07-21-2024 13:38-0400 Heart rate 69 /min Paty Ortega [employer] Work Phone: [facility] 04-24-2024 10:09-0400 Diastolic blood pressure 70 mm[Hg] Woo Small MD Work Phone: [facility] Comment on above: Manual 04-24-2024 10:09-0400 Systolic blood pressure 150 mm[Hg] Woo Small MD Work Phone: [facility] Comment on above: Manual 04-24-2024 09:44-0400 Body height 172.7 cm Woomert Small MD Work Phone: [facility] 04-24-2024 09:44-0400 Body mass index (BMI) [Ratio] 22.43 kg/m2 Woo Day Work Phone: [facility] 04-24-2024 09:44-0400 Body weight 66.91 kg Woo Day Work Phone: [facility] 04-24-2024 09:44-0400 Heart rate 53 /min Woo Work Phone: [facility] 04-24-2024 09:44-0400 SaO2% (BldA) [Mass fraction] 96 % Woo Work Phone: [facility] 02-24-2024 13:44-0400 Body height 172.7 cm Maricruz BERMAN DNP Work Phone: [facility] 02-24-2024 13:44-0400 Body mass index (BMI) [Ratio] 23.11 kg/m2 Maricruz BERMAN DNP Work Phone: [facility] 02-24-2024 13:44-0400 Body weight 68.95 kg Maricruz BERMAN DNP Work Phone: [facility] 02-24-2024 13:44-0400 Diastolic blood pressure 68 mm[Hg] Maricruz BERMAN DNP Work Phone: [facility] 02-24-2024 13:44-0400 Heart rate 76 /min Maricruz BERMAN DNP Work Phone: [facility] 02-24-2024 13:44-0400 Systolic blood pressure 142 mm[Hg] Maricruz BERMAN DNP Work Phone: [facility] 02-18-2024 12:48-0400 Body mass index (BMI) [Ratio] 23.11 kg/m2 Paty Ortega CNP Work Phone: [facility] 02-18-2024 12:48-0400 Body weight 68.95 kg Paty Ortega CNP Work Phone: [facility] 02-18-2024 12:48-0400 Diastolic blood pressure 79 mm[Hg] Paty Ortega [employer] Work Phone: [facility] 02-18-2024 12:48-0400 Heart rate 67 /min Paty Ortega [employer] Work Phone: [facility] 02-18-2024 12:48-0400 Systolic blood pressure 131 mm[Hg] Paty Ortega [employer] Work Phone: [facility] 01-14-2024 11:02-0400 Body height 172.7 cm Aylin Lacy [employer] Work Phone: [facility] 01-14-2024 11:02-0400 Body mass index (BMI) [Ratio] 24.01 kg/m2 Aylin Lacy [employer] Work Phone: [facility] 01-14-2024 11:02-0400 Body weight 71.62 kg Aylin Lacy CNP Work Phone: [facility] 01-14-2024 11:02-0400 Diastolic blood pressure 78 mm[Hg] Aylin Lacy [employer] Work Phone: [facility] 01-14-2024 11:02-0400 Heart rate 70 /min Aylin Lacy [employer] Work Phone: [facility] 01-14-2024 11:02-0400 SaO2% (BldA) [Mass fraction] 94 % Aylin Regino [employer] Work Phone: [facility] 01-14-2024 11:02-0400 Systolic blood pressure 139 mm[Hg] Aylin Regino [employer] Work Phone: [facility] 12-01-2023 08:00-0500 Body temperature 97.9 [degF] Kathleen Story MD Work Phone: [facility] 12-01-2023 08:00-0500 Diastolic blood pressure 73 mm[Hg] Kathleen Story MD Work Phone: [facility] 12-01-2023 08:00-0500 Heart rate 91 /min Kathleen Story MD Work Phone: [facility] 12-01-2023 08:00-0500 Respiratory rate 18 /min Kathleen Story MD Work Phone: [facility] 12-01-2023 08:00-0500 SaO2% (BldA) [Mass fraction] 94 % Kathleen Story MD Work Phone: [facility] 12-01-2023 08:00-0500 Systolic blood pressure 134 mm[Hg] Kathleen Story MD Work Phone: [facility] 12-01-2023 06:00-0500 Body mass index (BMI) [Ratio] 23.96 kg/m2 Kathleen Story MD Work Phone: [facility] 12-01-2023 06:00-0500 Body weight 69.4 kg Kathleen Story MD Work Phone: [facility] 11-27-2023 04:06-0500 SaO2% (BldA) [Mass fraction] 96.0 % Kathleen Story MD Work Phone: [facility] 11-27-2023 03:00-0500 Body height 170.2 cm Kathleen Story MD Work Phone: [facility] 11-27-2023 01:39-0500 Diastolic blood pressure 79 mm[Hg] Ger Bansal DO Work Phone: [facility] 11-27-2023 01:39-0500 Heart rate 77 /min Ger Bansal DO Work Phone: [facility] 11-27-2023 01:39-0500 Respiratory rate 20 /min Ger Bansal DO Work Phone: [facility] 11-27-2023 01:39-0500 SaO2% (BldA) [Mass fraction] 95 % Ger Bansal DO Work Phone: [facility] 11-27-2023 01:39-0500 Systolic blood pressure 148 mm[Hg] Ger Bansal DO Work Phone: [facility] 11-26-2023 21:22-0500 Body height 172.7 cm Ger Bansal DO Work Phone: [facility] 11-26-2023 21:22-0500 Body mass index (BMI) [Ratio] 22.5 kg/m2 Ger Bansal DO Work Phone: [facility] 11-26-2023 21:22-0500 Body temperature 97.11 [degF] Ger Bansal DO Work Phone: [facility] 11-26-2023 21:22-0500 Body weight 67.13 kg Ger Bansal DO Work Phone: [facility] 10-21-2023 08:54-0500 Body height 172.7 cm Woo Small MD Work Phone: [facility] 10-21-2023 08:54-0500 Body mass index (BMI) [Ratio] 22.61 kg/m2 Woo Small MD Work Phone: [facility] 10-21-2023 08:54-0500 Body weight 67.45 kg Woo Small MD Work Phone: [facility] 10-21-2023 08:54-0500 Diastolic blood pressure 67 mm[Hg] Woo Small MD Work Phone: [facility] 10-21-2023 08:54-0500 Heart rate 65 /min Woo Small MD Work Phone: [facility] 10-21-2023 08:54-0500 SaO2% (BldA) [Mass fraction] 99 % Woo Small MD Work Phone: [facility] 10-21-2023 08:54-0500 Systolic blood pressure 128 mm[Hg] Woo Small MD Work Phone: [facility] 10-13-2023 11:55-0500 SaO2% (BldA) [Mass fraction] 92 % Praful Pineda MD Work Phone: [facility] 10-13-2023 10:39-0500 Heart rate 97 /min Praful Pineda MD Work Phone: [facility] 10-13-2023 09:35-0500 Body height 171.5 cm Praful Pineda MD Work Phone: [facility] 10-13-2023 09:35-0500 Body mass index (BMI) [Ratio] 24.38 kg/m2 Praful Pineda MD Work Phone: [facility] 10-13-2023 09:35-0500 Body weight 71.7 kg Praful Pineda MD Work Phone: [facility] 10-12-2023 20:45-0500 Body temperature 98.1 [degF] Praful Pineda MD Work Phone: [facility] 10-12-2023 20:45-0500 Diastolic blood pressure 85 mm[Hg] Praful Pineda MD Work Phone: [facility] 10-12-2023 20:45-0500 Respiratory rate 16 /min Praful Pineda MD Work Phone: [facility] 10-12-2023 20:45-0500 Systolic blood pressure 123 mm[Hg] Praful Pineda MD Work Phone: [facility] 10-11-2023 01:56-0500 Body temperature 37.0 Praful Pineda MD Work Phone: [facility] 10-11-2023 01:56-0500 SaO2% (BldA) [Mass fraction] 93 % Praful Pineda MD Work Phone: [facility] 10-08-2023 11:12-0500 Diastolic blood pressure 66 mm[Hg] Mary Vargas MD Work Phone: [facility] 10-08-2023 11:12-0500 Heart rate 67 /min Mary Vargas MD Work Phone: [facility] 10-08-2023 11:12-0500 Systolic blood pressure 199 mm[Hg] Mary Vargas MD Work Phone: [facility] 10-08-2023 11:05-0500 Body mass index (BMI) [Ratio] 24.18 kg/m2 Mary Vargas MD Work Phone: [facility] 10-08-2023 11:05-0500 Body weight 72.12 kg Mary Vargas MD Work Phone: [facility] 08-25-2023 14:11-0400 Body weight 72.12 kg Ayanna Young DO Work Phone: [facility] 08-25-2023 14:11-0400 Diastolic blood pressure 62 mm[Hg] Ayanna Young DO Work Phone: [facility] 08-25-2023 14:11-0400 Heart rate 62 /min Ayanna Young DO Work Phone: [facility] 08-25-2023 14:11-0400 Systolic blood pressure 144 mm[Hg] Ayanna Young DO Work Phone: [facility] 07-27-2023 14:48-0400 Diastolic blood pressure 78 mm[Hg] Nancy Mirza Work Phone: [facility] Work Phone: 07-27-2023 14:48-0400 Systolic blood pressure 152 mm[Hg] Nancy Mirza Work Phone: [facility] Work Phone: 07-27-2023 14:45-0400 Body height 172.72 cm Nancy [facility] Work Phone: 07-27-2023 14:45-0400 Body mass index (BMI) [Ratio] 24.05 kg/m2 Nancy Isbell Koreyeleazar Work Phone: [facility] Work Phone: 07-27-2023 14:45-0400 Body surface area Derived from formula 1.85 m2 Nancy Mirza Work Phone: [facility] Work Phone: 07-27-2023 14:45-0400 Body weight 71.76 kg Nancy Mirza Work Phone: [facility] Work Phone: 07-27-2023 14:45-0400 Diastolic blood pressure 88 mm[Hg] Nancy Mirza Work Phone: [facility] Work Phone: 07-27-2023 14:45-0400 Heart rate 70 /min Nancy Mirza Work Phone: [facility] Work Phone: 07-27-2023 14:45-0400 SaO2% (BldA) [Mass fraction] 97 % Nancy Mirza Work Phone: [facility] Work Phone: 07-27-2023 14:45-0400 Systolic blood pressure 160 mm[Hg] Nancy Mirza Work Phone: [facility] Work Phone: 02-19-2023 13:02-0400 Body mass index (BMI) [Ratio] 24.33 kg/m2 Paty Ortega CNP Work Phone: [facility] 02-19-2023 13:02-0400 Body weight 72.58 kg Paty Ortega [employer] Work Phone: [facility] 02-19-2023 13:02-0400 Diastolic blood pressure 83 mm[Hg] Paty Ortega [employer] Work Phone: [facility] 02-19-2023 13:02-0400 Heart rate 73 /min Paty Ortega [employer] Work Phone: [facility] 02-19-2023 13:02-0400 Systolic blood pressure 116 mm[Hg] Paty Ortega [employer] Work Phone: [facility] 10-19-2022 10:01-0500 Diastolic blood pressure 69 mm[Hg] Paty Ortega [employer] Work Phone: [facility] 10-19-2022 10:01-0500 Heart rate 89 /min Paty Ortega [employer] Work Phone: [facility] 10-19-2022 10:01-0500 Systolic blood pressure 149 mm[Hg] Paty Ortega [employer] Work Phone: [facility] 10-19-2022 09:56-0500 Body mass index (BMI) [Ratio] 24.04 kg/m2 Paty Ortega [employer] Work Phone: [facility] 10-19-2022 09:56-0500 Body weight 71.71 kg Paty Ortega [employer] Work Phone: [facility] 06-19-2022 10:04-0400 Diastolic blood pressure 90 mm[Hg] Paty Ortega [employer] Work Phone: [facility] 06-19-2022 10:04-0400 Systolic blood pressure 184 mm[Hg] Paty Ortega [employer] Work Phone: [facility] 06-19-2022 09:40-0400 Heart rate 72 /min Paty Ortega [employer] Work Phone: [facility] 06-19-2022 09:36-0400 Body height 172.7 cm Paty Ortega [employer] Work Phone: [facility] 06-19-2022 09:36-0400 Body mass index (BMI) [Ratio] 24.48 kg/m2 Paty Ortega [employer] Work Phone: [facility] 06-19-2022 09:36-0400 Body weight 73.03 kg Paty Ortega [employer] Work Phone: [facility] 02-13-2022 11:13-0400 Diastolic blood pressure 74 mm[Hg] Mary Vargas MD Work Phone: [facility] 02-13-2022 11:13-0400 Systolic blood pressure 138 mm[Hg] Mary Vargas MD Work Phone: [facility] 02-13-2022 11:09-0400 Body height 172.7 cm Mary Vargas MD Work Phone: [facility] 02-13-2022 11:09-0400 Body mass index (BMI) [Ratio] 25.09 kg/m2 Mary Vargas MD Work Phone: [facility] 02-13-2022 11:09-0400 Body weight 74.84 kg Mary Vargas MD Work Phone: [facility] 02-13-2022 11:09-0400 Heart rate 71 /min Mary Vargas MD Work Phone: [facility] 10-13-2021 14:07-0500 Diastolic blood pressure 72 mm[Hg] Paty Ortega [employer] Work Phone: [facility] 10-13-2021 14:07-0500 Heart rate 74 /min Paty Ortega [employer] Work Phone: [facility] 10-13-2021 14:07-0500 Systolic blood pressure 163 mm[Hg] Paty Ortega [employer] Work Phone: [facility] 10-13-2021 13:59-0500 Body mass index (BMI) [Ratio] 24.89 kg/m2 Paty Ortega [employer] Work Phone: [facility] 10-13-2021 13:59-0500 Body weight 74.25 kg Paty Ortega [employer] Work Phone: [facility] 06-20-2021 14:38-0400 Diastolic blood pressure 68 mm[Hg] Paty Ortega [employer] Work Phone: [facility] 06-20-2021 14:38-0400 Heart rate 70 /min Paty Ortega [employer] Work Phone: [facility] 06-20-2021 14:38-0400 Systolic blood pressure 163 mm[Hg] Paty Ortega [employer] Work Phone: [facility] 06-20-2021 14:33-0400 Body height 172.7 cm Paty Ortega [employer] Work Phone: [facility] 06-20-2021 14:33-0400 Body mass index (BMI) [Ratio] 25.32 kg/m2 Paty Ortega [employer] Work Phone: [facility] 06-20-2021 14:33-0400 Body weight 75.52 kg Paty Ortega [employer] Work Phone: [facility] 02-18-2021 15:24-0400 Body height 172.7 cm Mary Vargas MD Work Phone: [facility] 02-18-2021 15:24-0400 Body mass index (BMI) [Ratio] 25.54 kg/m2 Mary Vargas MD Work Phone: [facility] 02-18-2021 15:24-0400 Body weight 76.2 kg Mary Vargas MD Work Phone: [facility] 02-18-2021 15:24-0400 Diastolic blood pressure 70 mm[Hg] Mary Vargas MD Work Phone: [facility] 02-18-2021 15:24-0400 Heart rate 76 /min Mary Vargas MD Work Phone: [facility] 02-18-2021 15:24-0400 Systolic blood pressure 194 mm[Hg] Mary Vargas MD Work Phone: [facility] 10-18-2020 13:36-0500 BMI (Body Mass Index) 25.54 kg/m2 [facility] 10-18-2020 13:36-0500 Body weight 76.2 kg [facility] 10-18-2020 13:36-0500 BP Diastolic 69 mm[Hg] [facility] 10-18-2020 13:36-0500 BP Systolic 163 mm[Hg] [facility] 10-18-2020 13:36-[address] [facility] 10-18-2020 13:36-0500 Pulse (Heart Rate) 72 /min [facility] 06-18-2020 10:01-0400 BMI (Body Mass Index) 25.39 kg/m2 [facility] 06-18-2020 10:01-0400 Body weight 75.[address] [facility] 06-18-2020 10:01-0400 BP Diastolic 71 mm[Hg] [facility] 06-18-2020 10:01-0400 BP Systolic 172 mm[Hg] [facility] 06-18-2020 10:01-[address] [facility] 06-18-2020 10:01-0400 Pulse (Heart Rate) 72 /min [facility] 11-16-2019 10:40-0500 BMI (Body Mass Index) 25.09 kg/m2 [facility] 11-16-2019 10:40-0500 Body weight 74.[address] [facility] 11-16-2019 10:40-0500 BP Diastolic 68 mm[Hg] [facility] 11-16-2019 10:40-0500 BP Systolic 178 mm[Hg] [facility] 11-16-2019 10:40-[address] [facility] 11-16-2019 10:40-0500 Pulse (Heart Rate) 75 /min [facility] 07-17-2019 10:48-0400 BMI (Body Mass Index) 25.09 kg/m2 Keeley Patton [facility] 07-17-2019 10:48-0400 Body weight 74.84 kg Keeley Patton [facility] 07-17-2019 10:48-0400 BP Diastolic 69 mm[Hg] Keeley Patton [facility] 07-17-2019 10:48-0400 BP Systolic 152 mm[Hg] Keeley Patton [facility] 07-17-2019 10:48-0400 Height 172.7 cm Keeley Patton [facility] 07-17-2019 10:48-0400 Pulse (Heart Rate) 71 /min Keeley Patton [facility] 03-13-2019 12:07-0400 BMI (Body Mass Index) 25.24 kg/m2 Mary Vargas [facility] 03-13-2019 12:07-0400 Body weight 75.3 kg Mary Vargas [facility] 03-13-2019 12:07-0400 BP Diastolic 67 mm[Hg] Mary Vargas [facility] 03-13-2019 12:07-0400 BP Systolic 160 mm[Hg] Mary Vargas [facility] 03-13-2019 12:07-0400 Height 172.7 cm Mary Vargas [facility] 03-13-2019 12:07-0400 Pulse (Heart Rate) 72 /min Mary Vargas [facility] 11-11-2018 11:08-0500 BMI (Body Mass Index) 26 kg/m2 Keeley Patton [facility] 11-11-2018 11:08-0500 BP Diastolic 74 mm[Hg] Keeley Patton [facility] 11-11-2018 11:08-0500 BP Systolic 172 mm[Hg] Keeley Patton [facility] 11-11-2018 11:08-0500 Height 172.7 cm Keeley Patton [facility] 11-11-2018 11:08-0500 Pulse (Heart Rate) 71 /min Keeley Patton [facility] 11-11-2018 11:08-0500 Weight 77.56 kg Keeley Patton [facility] 07-05-2018 10:05-0400 BMI (Body Mass Index) 25.48 kg/m2 Paty Ortega [facility] 07-05-2018 10:05-0400 BP Diastolic 58 mm[Hg] Paty Ortega [facility] 07-05-2018 10:05-0400 BP Systolic 130 mm[Hg] Paty Ortega [facility] 07-05-2018 10:05-0400 Height 172.7 cm Paty Ortega [facility] 07-05-2018 10:05-0400 Pulse (Heart Rate) 84 /min Paty Ortega [facility] 07-05-2018 10:05-0400 Weight 76.02 kg Paty Ortega [facility] 02-28-2018 10:14-0400 BMI (Body Mass Index) 26.15 kg/m2 [facility] 02-28-2018 10:14-0400 BP Diastolic 64 mm[Hg] [facility] 02-28-2018 10:14-0400 BP Systolic 154 mm[Hg] [facility] 02-28-2018 10:14-0400 Height 172.7 cm [facility] 02-28-2018 10:14-0400 Pulse (Heart Rate) 76 /min [facility] 02-28-2018 10:14-0400 Weight 78.02 kg [facility] 10-29-2017 10:08-0500 BMI (Body Mass Index) 25.24 kg/m2 Mary Vargas [facility] Work Phone: 10-29-2017 10:08-0500 BP Diastolic 64 mm[Hg] Mary Vargas [facility] Work Phone: 10-29-2017 10:08-0500 BP Systolic 142 mm[Hg] Mary Vargas [facility] Work Phone: 10-29-2017 10:08-0500 Height 172.7 cm Mary Vargas [facility] Work Phone: 10-29-2017 10:08-0500 Pulse (Heart Rate) 72 /min Mary Vargas [facility] Work Phone: 10-29-2017 10:08-0500 Weight 75.3 kg Mary Vargas [facility] Work Phone: 06-17-2017 11:04-0400 BMI (Body Mass Index) 24.78 kg/m2 Ya Parker [facility] Work Phone: 06-17-2017 11:04-0400 BP Diastolic 62 mm[Hg] Ya Parker [facility] Work Phone: 06-17-2017 11:04-0400 BP Systolic 148 mm[Hg] Ya Parker [facility] Work Phone: 06-17-2017 11:04-0400 Height 172.7 cm Ya Parker [facility] Work Phone: 06-17-2017 11:04-0400 Pulse (Heart Rate) 64 /min Ya Parker [facility] Work Phone: 06-17-2017 11:04-0400 Weight 73.94 kg Ya Parker [facility] Work Phone: Encounters Encounter Date Encounter Type Care Provider Facility Start: 05-09-2025 ambulatory Ryley Jeter Facility:[facility] Start: 05-09-2025 Dr. [facility] Work Phone: Start: 05-08-2025 Dr. [facility] Work Phone: Start: 05-07-2025 Dr. Malika [facility] Work Phone: Start: 05-06-2025 Dr. Carlita [facility] Work Phone: Start: 05-05-2025 ambulatory Nancy Vernon ty:[facility] Start: 05-05-2025 End: 05-09-2025 Evaluation and management of inpatient Ryley Jeter MD Work Phone: -Progressive Care Unit Start: 05-05-2025 End: 05-09-2025 Dr. 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 Ambulatory Start: 04-22-2025 Dr. Breezy chavez MD [facility] Start: 04-22-2025 Dr. Malika Fonseca [facility] Work Phone: Start: 04-21-2025 Dr. Breezy chavez MD [facility] Start: 04-21-2025 Dr. Malika Fonseca [facility] Work Phone: Start: 04-20-2025 Dr. Breezy chavez MD [facility] Start: 04-20-2025 Dr. Ger lora [facility] Work Phone: Start: 04-19-2025 ambulatory Ryley Steffany Facility:[facility] Start: 04-19-2025 End: 04-22-2025 Evaluation and management of inpatient Ryley Jeter MD Work Phone: [facility] Work Phone: Start: 04-19-2025 End: 04-22-2025 Dr. Nancy Rizzo DO -Intensive Care Unit Work Phone: Start: 04-16-2025 End: 04-17-2025 Refill Ej Guidry MA [facility] Comment on above: Medication Refill Type 1 diabetes suzie itus with diabetic neuropathy (HCC) Start: 04-12-2025 ambulatory RYLEY JETER [facility] Ambulatory Start: 04-10-2025 Dr. Grace sepulveda MD [facility] Work Phone: Start: 04-09-2025 Non-patient / Non-visit Dr. Kesha Arnold MD [facility] Work Phone: Start: 04-09-2025 Dr. Grace sepulveda MD [facility] Work Phone: Start: 04-08-2025 Non-patient / Non-visit Dr. Cassandra Moore MD [facility] Work Phone: Start: 04-08-2025 Dr. Jose Moore MD [facility] Work Phone: Start: 04-07-2025 Non-patient / Non-visit Dr. Cassandra Moore [facility] Work Phone: Start: 04-07-2025 Dr. Jose Moore MD [facility] Work Phone: Start: 04-06-2025 Non-patient / Non-visit Dr. Cassandra Moore [facility] Work Phone: Start: 04-06-2025 Dr. Jose Moore MD [facility] Work Phone: Start: 04-06-2025 Non-patient / Non-visit Dr. Rosetta [facility] Start: 04-06-2025 Dr. Smooth almanza MD [facility] Start: 04-06-2025 Non-patient / Non-visit Dr. Landry August own -[facility] Start: 04-06-[address] [facility] Start: 04-05-2025 Non-patient / Non-visit Dr. Rosetta [facility] Start: 04-05-2025 Dr. Sm[address] [facility] Start: 04-05-2025 Non-patient / Non-visit Dr. Kesha Martin MD [facility] Start: 04-05-2025 Dr. Barbie Martin MD [facility] Start: 04-05-2025 Non-patient / Non-visit Dr. Kesha Arnold MD [facility] Work Phone: Start: 04-05-2025 Dr. Grace sepulveda MD [facility] Work Phone: Start: 04-05-2025 Non-patient / Non-visit Dr. Landry August own [facility] Start: 04-05-2025 Dr. Landry Fagan DO [facility] Start: 04-04-2025 Non-patient / Non-visit Dr. Kesha Arnold MD [facility] Work Phone: Start: 04-04-2025 Dr. Grace sepulveda MD [facility] Work Phone: Start: 04-03-[address] [facility] Facility:[facility] [place] Start: 04-03-2025 Non-patient / Non-visit Dr. Koffi langley MD -[facility] Start: 04-03-2025 Dr. Koffi Gibbs MD -[facility] Start: 04-03-[address] [facility] Facility:[facility] [place] Start: 04-03-2025 End: 04-10-2025 Evaluation and management of inpatient Dr. Dyana Hwang MD -Intensive Care Unit Work Phone: Start: 04-03-2025 End: 04-10-2025 Dr. Grace Arnold MD -Progressive Care Unit Work Phone: Start: 03-29-2025 End: 03-29-2025 ambulatory WOO SMALL [facility] Start: 03-27-2025 End: 03-27-2025 Follow-up encounter Woo Small MD Work Phone: [facility] Comment on above: Basic metabolic pane l Start: 03-12-2025 End: 03-12-2025 Office outpatient visit 25 minutes Paty Ortega [facility] Work Phone: [facility] [place] Comment on above: Type 1 diabetes szuie itus with diabetic neuropathy (HCC) (Primary Dx); Pure hypercholesterolemia; Essential hypertension Start: 03-12-2025 End: 03-12-2025 ambulatory PATY ORTEGA [facility] Ambulatory Start: 03-09-2025 End: 03-09-2025 Office outpatient visit 25 minutes Woo Small MD Work Phone: [facility] Comment on above: Coronary artery dise 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 (Primary Dx); NSTEMI (non-ST elevated myocardial infarction) (HCC); Hospital discharge follow-up Start: 03-09-2025 End: 03-09-2025 ambulatory RYLEY JETER [facility] Ambulatory Start: 02-28-2025 End: 03-05-2025 Evaluation and management of inpatient 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); Essential hypertension; Pure hypercholesterolemia; Type 1 diabetes mellitus with diabetic neuropathy Start: 02-26-2025 End: 02-26-2025 ambulatory AYANNA ALBERT [facility] Ambulatory Start: 02-16-2025 End: 02-16-2025 Refill Paty Ortega CNP Work Phone: [facility] Comment on above: Type 1 diabetes suzie itus with diabetic neuropathy (HCC) (Primary Dx) Start: 02-14-2025 End: 02-14-2025 Documentation procedure Ej Guidry MA [facility] Comment on above: Letter refaxed Start: 02-12-2025 End: 02-13-2025 Orders Only Paty Ortega CNP Work Phone: [facility] Start: 02-09-2025 Encounter for other preprocedural examination Kerwin Tamayo [facility] Start: 02-06-2025 End: 02-06-2025 ambulatory Ryley Jeter MD Work Phone: [facility] Work Phone: Start: 02-06-2025 End: 02-06-[address] Kerwin Tamayo MD -Laboratory, [facility] Start: 02-06-2025 End: 02-06-2025 Dr. Kerwin Tamayo MD -Laboratory [facility] Start: 02-06-2025 End: 02-06-2025 ambulatory Ryley Jeter Facility:[facility] Start: 01-01-2025 End: 01-01-2025 Refill Paty Ortega [employer] Work Phone: [facility] Comment on above: Type 1 diabetes suzie itus with diabetic neuropathy (HCC) (Primary Dx) Start: 12-08-2024 End: 12-08-2024 Refill Paty Ortega [employer] Work Phone: [facility] Comment on above: Type 1 diabetes suzie itus with diabetic neuropathy (HCC) Start: 11-20-2024 End: 11-20-2024 Refill Paty Ortega [employer] Work Phone: [facility] Start: 11-14-2024 End: 11-14-2024 Office outpatient visit 25 minutes Woo Smlal MD Work Phone: [facility] Comment on above: Coronary artery dise 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 (Primary Dx); Claudication in peripheral vascular disease; Bilateral carotid artery stenosis Start: 11-14-2024 End: 11-14-2024 ambulatory RYLEY KEY SCL [facility] Ambulatory Start: 11-13-2024 End: 11-13-2024 Office outpatient visit 25 minutes Paty Ortega [employer] Work Phone: [facility] [place] Comment on above: Type 1 diabetes suzie itus with diabetic neuropathy (HCC) (Primary Dx); Pure hypercholesterolemia; Essential hypertension Start: 11-13-2024 End: 11-13-2024 [facility] Start: 11-09-2024 End: 11-09-2024 Office outpatient new 60 minutes Sandi Phan PA-C Work Phone: [facility] Comment on above: Bilateral carotid ar radha stenosis Start: 11-09-2024 End: 11-09-2024 ambulatory SANDI PHAN [facility] Ambulatory Start: 11-07-2024 End: 11-07-2024 Office outpatient new 45 minutes Brock Groves MD Work Phone: [facility] Comment on above: Coronary artery dise 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; Congestive heart failure, unspecified HF chronicity, unspecified heart failure type (HCC); Hypertensive emergency Start: 10-18-2024 End: 10-18-2024 Patient encounter status Woo Small MD Work Phone: [facility] Start: 10-18-2024 End: 10-18-2024 ambulatory WOO SMALL [facility] Ambulatory Start: 10-18-2024 End: 10-18-2024 Encounter for examination of blood pressure with abnormal findings WOO SMALL [facility] Start: 10-06-2024 End: 10-06-2024 Refill Luisa Easley RN [facility] Start: 10-04-2024 ambulatory EJ GUIDRY [facility] Ambulatory Start: 09-28-2024 ambulatory [facility]ER [facility] Start: 09-26-2024 End: 09-26-2024 Refill Paty Ortega CNP Work Phone: [facility] Comment on above: Type 1 diabetes suzie itus with diabetic neuropathy (HCC) (Primary Dx) Start: 09-21-2024 End: 09-21-2024 ambulatory Chalcam Steffany Facility:[facility] Start: 09-13-2024 ambulatory Chalcam Steffany Facility:[facility] Start: 09-12-2024 ambulatory Chalcam Steffany Facility:[facility] [place] Start: 09-12-2024 End: 09-14-2024 Evaluation and management of inpatient Ryley Steffany Facility:[facility] Start: 09-12-2024 ambulatory [facility] Facility:[facility] [place] Start: 08-29-2024 End: 08-29-2024 Office outpatient visit 15 minutes Ayanna Albert DO Work Phone: [facility] Comment on above: 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); Essential hypertension; Type 1 diabetes mellitus with diabetic neuropathy Start: 08-29-2024 End: 08-29-2024 ambulatory [facility] Ambulatory Start: 07-21-2024 End: 07-21-2024 Office outpatient visit 25 minutes Paty Ortega CNP Work Phone: [facility] [place] Comment on above: Type 1 diabetes suzie itus with diabetic neuropathy (HCC) (Primary Dx); Pure hypercholesterolemia; Essential hypertension Start: 07-21-2024 End: 07-21-2024 ambulatory RYLEY JETER [facility] Ambulatory Start: 07-07-2024 End: 07-07-2024 ambulatory NO ASSIGNED PCP [facility] Start: 05-17-2024 End: 05-17-2024 [facility] Start: 04-24-2024 End: 04-24-2024 Office outpatient visit 25 minutes Woo Small MD Work Phone: [facility] Comment on above: 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 (Primary Dx); Primary hypertension; Dyslipidemia Start: 03-28-2024 Refill Ej Guidry MA [facility] Comment on above: Medication Refill Start: 03-06-2024 Refill Paty Ortega CNP Work Phone: [facility] [place] Comment on above: Type 1 diabetes suzie itus with diabetic neuropathy (HCC) Start: 02-24-2024 End: 02-24-2024 Office outpatient visit 15 minutes Maricruz [facility] Work Phone: [facility] Comment on above: Stage 3b chronic kid garrcik disease (Multi) (Primary Dx); Acute on chronic systolic (congestive) heart failure (Multi); Type 1 diabetes mellitus with diabetic neuropathy (Multi) Start: 02-18-2024 End: 02-18-2024 Office outpatient visit 25 minutes Paty Ortega CNP Work Phone: [facility] [place] Comment on above: Type 1 diabetes suzie itus with diabetic neuropathy (HCC) (Primary Dx); Pure hypercholesterolemia; Essential hypertension Start: 02-07-2024 End: 02-07-2024 ambulatory NO ASSIGNED PCP [facility] Start: 01-17-2024 Refill Ej Guidry MA [facility] Comment on above: Medication Refill Start: 01-14-2024 End: 01-14-2024 Office outpatient visit 15 minutes Aylin Lacy [employer] Work Phone: [facility] Comment on above: Cardiovascular stres s test abnormal (Primary Dx); Dyslipidemia; 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; Primary hypertension Start: 12-29-2023 Refill Ej Guidry MA [facility] Comment on above: Medication Refill Start: 12-15-2023 End: 12-15-2023 ambulatory [facility] Work Phone: Start: 12-15-2023 End: 12-15-2023 Patient encounter procedure [facility] [place] Work Phone: Start: 11-29-2023 End: 11-29-2023 Subsequent hospital visit by physician Jovan Paul [employer] [facility] Comment on above: Arrived Start: 11-27-2023 End: 12-01-2023 Evaluation and management of inpatient Generic [facility] Work Phone: [facility] Start: 11-26-2023 End: 11-27-2023 Emergency department patient visit Ger Bansal Work Phone: [facility] Emergency Medicine Comment on above: NSTEMI (non-ST eleva chinyere myocardial infarction) (CMS/HCC) (Primary Dx); MADONNA (acute kidney injury) (CMS/[facility]); Acute combined systolic and diastolic congestive heart failure (CMS/[facility]); Type 1 diabetes mellitus with other specified complication ([facility]) Start: 11-25-2023 End: 11-25-2023 [facility] Work Phone: Start: 11-25-2023 End: 11-25-2023 Patient encounter procedure [facility] Work Phone: Start: 11-17-2023 End: 11-17-2023 [facility] Work Phone: Start: 11-17-2023 End: 11-17-2023 Patient encounter procedure [facility] Work Phone: Start: 11-02-2023 Orders Only Mary Ramirez MD Work Phone: [facility] Start: 10-22-2023 End: 10-22-2023 Patient encounter procedure [facility] Start: 10-21-2023 End: 10-21-2023 Office outpatient new 45 minutes Mary Vargas MD Work Phone: [facility] Comment on above: 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 (Primary Dx); Dyslipidemia; Congestive heart failure, unspecified HF chronicity, unspecified heart failure type (HCC) Start: 10-11-2023 End: 10-11-2023 Subsequent hospital visit by physician Jovan Paul [facility] [facility] Start: 12-11-2023 Critical care ill/in jured patient init 30-74 min Aury Rouse DO Work Phone: [facility] Work Phone: Start: 10-11-2023 End: 10-13-2023 Evaluation and management of inpatient Praful Pineda MD Work Phone: [facility] Surgical Intensive Care Comment on above: [...] 25 minutes Mary Vargas MD Work Phone: [facility] [place] Comment on above: 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 Ayanna Albert Facility:[id number] Start: 07-30-2023 Refill Paty Ortega CNP Work Phone: [facility] [place] Start: 07-29-2023 Patient encounter procedure Da jovani Mirza Work Phone: [facility] Work Phone: Start: 07-27-[address] Ayanna Albert Facility:[id number] Start: 02-19-2023 End: 02-19-2023 Office outpatient visit 25 minutes Paty Ortega CNP Work Phone: [facility] [place] Comment on above: Type 1 diabetes suzie itus with diabetic neuropathy (HCC) Start: 01-25-2023 Patient encounter procedure Da jovani Mirza Work Phone: [facility] Work Phone: Start: 01-25-[address] Nancy Mirza Facility:[id number] Start: 01-18-2023 Patient encounter procedure Da jovani Mirza Work Phone: [facility] Work Phone: Start: 01-18-[address] Nancy Mirza Facility:[id number] Start: 01-15-2023 Patient encounter procedure Da jovani Mirza Work Phone: [facility] Work Phone: Start: 01-15-2023 [email or web address], Provider : Chaya Chan, Status: Pen, Time: 10:00 AM Nancy Mirza Work Phone: [facility] Work Phone: Start: 01-15-[address] Nancy Mirza Facility:[id number] Start: 01-13-2023 Patient encounter procedure Juwan Mirza Work Phone: [facility] Work Phone: Start: 01-13-[address] Nancy Mirza Facility:[id number] Start: 01-08-2023 [email or web address], Provider : Chaya Chan, Status: Pen, Time: 10:00 AM Nancy Mirza Work Phone: [facility] Work Phone: Start: 01-08-[address] Nancy Mirza Facility:[id number] Start: 01-06-[address] Nancy Mirza Facility:[id number] Start: 01-06-2023 Patient encounter procedure Da jovani Mirza Work Phone: [facility] Work Phone: Start: 01-01-[address] Nancy Mirza Facility:[id number] Start: 01-01-2023 Patient encounter procedure Da jovani Mirza Work Phone: [facility] Work Phone: Start: 12-31-2022 Refill Paty Ortega [employer] Work Phone: [facility] Comment on above: Type 1 diabetes suzie itus with diabetic neuropathy (HCC) (Primary Dx) Start: 12-30-[address] Nancy Mirza Facility:[id number] Start: 12-25-[address] Nancy Mirza Facility:[id number] Start: 12-25-2022 Patient encounter procedure Da jovani Mirza Work Phone: [facility] Work Phone: Start: 12-21-2022 Patient encounter procedure Da jovani Mirza Work Phone: [facility] Work Phone: Start: 12-21-[address] Nancy Mirza Facility:[id number] Start: 10-19-2022 End: 10-19-2022 Office outpatient visit 25 minutes Paty Ortega [employer] Work Phone: [facility] [place] Comment on above: Type 1 diabetes suzie itus with diabetic neuropathy (HCC) (Primary Dx); Essential hypertension; Pure hypercholesterolemia; Bilateral carotid artery stenosis; Prostate cancer screening Start: 06-19-2022 End: 06-19-2022 Office outpatient visit 25 minutes Paty Ortega [employer] Work Phone: [facility] [place] Comment on above: Type 1 diabetes suzie itus with diabetic neuropathy (HCC) (Primary Dx); Essential hypertension; Elevated PSA Start: 02-13-2022 End: 02-13-2022 Office outpatient visit 25 minutes Mary Vargas MD Work Phone: [facility] [place] Comment on above: Type 1 diabetes suzie itus with diabetic neuropathy (HCC) (Primary Dx); 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); Essential hypertension; Bilateral carotid artery stenosis; Prostate cancer screening Start: 10-13-2021 End: 10-13-2021 Office outpatient visit 25 minutes Paty Ortega CNP Work Phone: [facility] [place] Comment on above: Type 1 diabetes suzie itus with diabetic neuropathy (HCC) (Primary Dx); Essential hypertension; Pure hypercholesterolemia Start: 10-08-2021 Refill Paty Ortega CNP Work Phone: [facility] Start: 06-20-2021 End: 06-20-2021 Office outpatient visit 25 minutes Paty Ortega CNP Work Phone: [facility] Comment on above: Type 1 diabetes suzie itus with diabetic polyneuropathy (HCC) (Primary Dx); Essential hypertension; Pure hypercholesterolemia Start: 02-26-2021 End: 02-26-2021 Subsequent hospital visit by physician Mary Vargas MD Work Phone: [facility] Comment on above: Arrived Start: 02-18-2021 End: 02-18-2021 Office outpatient visit 25 minutes Mary Vargas MD Work Phone: [facility] Comment on above: Type 1 diabetes suzie itus with diabetic polyneuropathy (HCC) (Primary Dx); Bilateral carotid artery stenosis; Essential hypertension; Type 1 diabetes mellitus with diabetic neuropathy (HCC) Start: 02-18-2021 End: 02-18-2021 Refill Mary Vargas MD Work Phone: [facility] Start: 11-22-2020 End: 11-22-2020 Orders Only Ya Nicolas Work Phone: [facility] Start: 10-18-2020 End: 10-18-2020 Office outpatient visit 25 minutes Paty Terry Ortega Work Phone: [facility] Comment on above: Type 1 diabetes suzie itus with diabetic polyneuropathy (HCC) (Primary Dx); Type 1 diabetes mellitus with diabetic neuropathy (HCC); Essential hypertension; Pure hypercholesterolemia Start: 06-18-2020 End: 06-18-2020 Office outpatient visit 25 minutes Paty Terry [employer] Work Phone: [facility] Comment on above: Type 1 diabetes suzie itus with diabetic polyneuropathy (HCC) (Primary Dx); Type 1 diabetes mellitus with diabetic neuropathy (HCC); Essential hypertension; Pure hypercholesterolemia Start: 11-16-2019 End: 11-16-2019 Office outpatient visit 25 minutes Paty Terry [employer] Work Phone: [facility] Comment on above: Type I diabetes suzie itus with neurological manifestations, uncontrolled (HCC) (Primary Dx); Type 1 diabetes mellitus with diabetic polyneuropathy (HCC); Pure hypercholesterolemia Start: 07-17-2019 End: 07-17-2019 Office outpatient visit 25 minutes Keeley Patton Work Phone: [facility] Comment on above: Type 1 diabetes suzie itus with diabetic polyneuropathy (HCC) (Primary Dx); Essential hypertension; Pure hypercholesterolemia Start: 03-13-2019 End: 03-13-2019 Office outpatient visit 25 minutes Mary Vargas Work Phone: [facility] Comment on above: 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) (Primary Dx); Pure hypercholesterolemia; Essential hypertension; Type 1 diabetes mellitus with diabetic neuropathy (HCC); Prostate cancer screening Start: 11-11-2018 End: 11-11-2018 Office outpatient visit 15 minutes Keeley Patton Work Phone: [facility] Comment on above: Type 1 diabetes suzie itus with diabetic neuropathy (HCC) (Primary Dx); Essential hypertension Start: 07-05-2018 End: 07-05-2018 Office outpatient visit 25 minutes Paty [employer] Work Phone: [facility] Comment on above: Type 1 diabetes suzie itus with diabetic neuropathy (HCC) (Primary Dx); Essential hypertension; Pure hypercholesterolemia Start: 02-28-2018 End: 02-28-2018 Office/outpatient visit, est, level 3 Alexandra Givens Work Phone: [facility] Start: 02-09-2018 Ambulatory Nancy Mirza Facilit y:[place] Start: 02-09-2018 End: 02-09-2018 Ambulatory Nancy Mirza Work Phone: [facility] Start: 10-29-2017 Office/outpatient vi sit, est, level 4 Mary Vargas Work Phone: [facility] Start: 06-17-2017 End: 06-17-2017 Office outpatient visit 25 minutes Ya Buckariela Seaywin Work Phone: [facility] Comment on above: Type 1 diabetes suzie itus with diabetic neuropathy (HCC) (Primary Dx);Essential hypertension;Pure hypercholesterolemia Procedures Date Procedure Procedure Detail Performing Clinician Start: 05-09-2025 Blood count smear mc rscp w/mnl difrntl wbc count Ryley Jeter MD Work Phone: Start: 05-09-2025 Estimated creatinine clearance Ryley Jeter MD Work Phone: Start: 05-09-2025 Mean corpuscular hem oglobin concentration determination Ryley Jeter MD Work Phone: Start: 05-09-2025 Nucleated red blood cell count procedure Ryley Jeter MD Work Phone: Start: 05-09-2025 Platelet mean volume determination Ryley Jeter MD Work Phone: Start: 05-08-2025 Folic acid measurement, RBC Ryley Jeter MD Work Phone: Start: 05-08-2025 Total iron binding c apacity measurement Ryley Jeter MD Work Phone: Start: 05-07-2025 Calculation of inter national normalized ratio Ryley Jeter MD Work Phone: Start: 05-07-2025 Serum inorganic phos phate measurement Ryley Jeter MD Work Phone: Start: 05-06-2025 Carbon dioxide measu rement, partial pressure Ryley Jeter MD Work Phone: Start: 05-06-2025 Gases blood o2 satur ation only direct nikkie Ryley Jeter MD Work Phone: Start: 05-06-2025 Measurement of parti al pressure of oxygen in blood Ryley Jeter MD Work Phone: Start: 05-06-2025 Oxygen measurement Dante Jeter MD Work Phone: Start: 05-06-2025 Assay of lactate Ryley Jeetr MD Work Phone: Start: 05-05-2025 Urine microscopy: red cells Ryley Jeter MD Work Phone: Start: 05-05-2025 Urnls dip stick/tabl et reagent auto microscopy Ryley Jeter MD Work Phone: Start: 05-05-2025 Plain chest X-ray Gregg Jeter MD Work Phone: Start: 05-05-2025 Blood count smear mc rscp w/mnl difrntl wbc count Ryley Jeter MD Work Phone: Start: 05-05-2025 Calculation of inter national normalized ratio Ryley Jeter MD Work Phone: Start: 05-05-2025 Estimated creatinine clearance Ryley Jeter MD Work Phone: Start: 05-05-2025 Mean corpuscular hem oglobin concentration determination Ryley Jeter MD Work Phone: Start: 05-05-2025 Nucleated red blood cell count procedure Ryley Jeter MD Work Phone: Start: 05-05-2025 Platelet mean volume determination Ryley Jeter MD Work Phone: Start: 05-05-2025 Legionella pneumophi la antigen assay Ryley Jeter MD Work Phone: Start: 05-05-2025 Nucleic acid assay Dante Jeter MD Work Phone: Start: 05-05-2025 Sars-cov-2 Ryley titus MD Work Phone: Start: 05-05-2025 End: 05-05-2025 Streptococcus pneumoniae antigen assay Ryley Jeter MD Work Phone: Start: 05-05-2025 Urine culture Ryley coulter MD Work Phone: Start: 05-05-2025 Ryley titus MD Work Phone: Start: 04-22-2025 Estimated creatinine clearance Ryley Jeter [...] 04-19-2025 Serum inorganic phos phate measurement Ryley Jetre MD Work Phone: Start: 04-19-2025 Carbon dioxide [...] colitis,primary sclerosing cholangitis and autoimmune hepatitis.Performed at: [place] [id number] Director: Todd Anderson PhD, Phone: [phone] Start: 04-06-2025 Serum inorganic phos phate measurement [...] or Pulmonary Embolism (PE)CRITICAL VALUE CALLED TO [id number] Victor Hugo Santamaria.RESULTS READ BACK BY SAME. Start: 04-03-2025 Estimated creatinine clearance Ryley Jeter MD Work Phone: Start: 02-28-2025 Thyrotropin [Units/v olume] in Serum or Plasma Maricruz Albert APRN-ROLLED GOLD PLATER, [facility] Work Phone: Start: 02-12-2025 Comprehensive metabolic panel Paty Ortega [facility] Work Phone: Start: 02-12-2025 Lipid panel Paty Ortega [facility] Work Phone: Start: 02-12-2025 Lipid 1996 panel - S laurence or Plasma Ayanna Albert DO Work Phone: Start: 02-12-2025 Thyrotropin [Units/v olume] in Serum or Plasma Ayanna Albert DO Work Phone: Start: 02-06-2025 Mean corpuscular hem oglobin concentration determination Ryley Jeter MD Work Phone: Start: 02-06-2025 Platelet mean volume determination Ryley Jeter MD [...] 10-27-2024 End: 10-27-2024 Comprehensive metabolic panel Zoila MICHELLEC Work Phone: Start: 10-27-2024 Cath plmt l [...] Start: 12-01-2023 End: 12-01-2023 Glucose measurement Generic [facility] Work Phone: Start: 12-01-2023 Basic metabolic pane l calcium total Normajoanna Marin Seymour [employer] Work Phone: Start: 11-30-2023 Glucose measurement Gen malika [facility] Work Phone: Start: 11-30-2023 [facility] Work Phone: Start: 11-30-2023 Echo tthrc r-t 2d w/ wom-mode compl spec&colr d Norma Geiger [employer] Work Phone: Start: 11-30-2023 Basic metabolic pane l calcium total Norma Marin Seymour [employer] Work Phone: Start: 11-29-2023 Ct thorax w/o contra st material Alfred P Ezike [employer] Work Phone: Start: 11-29-2023 Thromboplastin time partial plasma/whole blood Mary Vargas MD Work Phone: Start: 11-29-2023 Glucose measurement Gen [facility] Work Phone: Start: 11-29-2023 Ecg routine ecg w/le ast 12 lds trcg only w/o i&r Ger W Bansal DO Work Phone: Start: 11-29-2023 Glucose measurement Gen [facility] Work Phone: Start: 11-29-2023 Thromboplastin time partial plasma/whole blood Mary Vargas MD Work Phone: Start: 11-29-2023 Basic metabolic pane l calcium total Norma Tania Ryderwood [employer] Work Phone: Start: 11-28-2023 Glucose measurement Gen [facility] Work Phone: Start: 11-28-2023 Glucose measurement Gen [facility] Work Phone: Start: 11-28-2023 Glucose measurement Gen [facility] Work Phone: Start: 11-28-2023 Glucose measurement Gen [facility] Work Phone: Start: 11-28-2023 Basic metabolic pane l calcium total Norma Tania Juanjo [employer] Work Phone: Start: 11-28-2023 Glucose measurement Gen [facility] Work Phone: Start: 11-28-2023 Basic metabolic pane l calcium total Norma Tania Juanjo [employer] Work Phone: Start: 11-27-2023 End: 11-27-2023 Basic metabolic panel calcium total Norma Tania Ryderwood [employer] Work Phone: Start: 11-27-2023 C-reactive protein Mehdi Pabon MD Work Phone: Start: 11-27-2023 Glucose measurement Gen [facility] Work Phone: Start: 11-27-2023 Glucose measurement Gen malika [facility] Work Phone: Start: 11-27-2023 Glucose measurement Gen malika [facility] Work Phone: Start: 11-27-2023 Basic metabolic pane l calcium total Norma Tania Ryderwood [employer] Work Phone: Start: 11-27-2023 Glucose measurement Gen malika [facility] Work Phone: Start: 11-27-2023 Iaad ia clostridium difficile toxin Norma Tania Juanjo [employer] Work Phone: Start: 11-27-2023 Hemoglobin glycosylated a1c Mary Vagras MD Work Phone: Start: 11-27-2023 Glucose measurement Gen malika [facility] Work Phone: Start: 11-27-2023 Basic metabolic pane l calcium total Norma Tania Juanjo [employer] Work Phone: Start: 11-27-2023 Glucose measurement Gen malika [facility] Work Phone: Start: 11-27-2023 Glucose measurement Gen malika [facility] Work Phone: Start: 11-27-2023 End: 11-27-2023 Glucose measurement Generic [facility] Work Phone: Start: 11-27-2023 Basic metabolic pane l calcium total Norma Tania Juanjo [employer] Work Phone: Start: 11-27-2023 Glucose measurement Gen malika [facility] Work Phone: Start: 11-27-2023 Glucose measurement Gen malika [facility] Work Phone: Start: 11-27-2023 Glucose measurement Gen malika [facility] Work Phone: Start: 11-27-2023 Basic metabolic pane l calcium total Norma Tania Juanjo [employer] Work Phone: Start: 11-27-2023 Influenza virus A an d B RNA and SARS-CoV-2 (COVID-19) N gene panel - Respiratory specimen by ALICE with probe detection Norma Geiger CNP Work Phone: Start: 11-27-2023 Polymerase chain ty ction analysis Norma Geiger CNP Work Phone: Start: 11-27-2023 End: 11-27-2023 Glucose measurement Generic [facility] Work Phone: Start: 11-27-2023 Assay of troponin quantitative Norma Geiger CNP Work Phone: Start: 11-27-2023 Gases blood ph direc t nikkie xcpt pulse oximitry Generic [facility] Work Phone: Start: 11-27-2023 End: 11-27-2023 Glucose measurement Generic [facility] Work Phone: Start: 11-27-2023 Radiologic exam ches t single view Norma Geiger CNP Work Phone: Start: 11-27-2023 End: 11-27-2023 Gases blood ph direct nikkie xcpt pulse oximitry Generic [facility] Work Phone: Start: 11-27-2023 Ecg routine [...] Phone: Start: 11-27-2023 Lipid panel Norma Tavares [employer] Work Phone: Start: 11-27-2023 End: 11-27-2023 Glucose measurement Generic [facility] Work Phone: Start: 11-27-2023 Thyrotropin [Units/v [...] Plasma by High sensitivity method Aury Nadeem Nasim DO Work Phone: Start: 10-11-2023 End: 10-11-2023 Ecg routine ecg w/least 12 lds i&r only Aury Nadeem Nasim DO Work Phone: Start: 10-11-2023 Iadna dna/rna rsv am plified probe technique Aury Nadeem Nasim DO Work Phone: Start: 10-11-2023 Influenza virus A an d B RNA [Identifier] in Unspecified specimen by ALICE with probe detection Aury Silver Nasim DO Work Phone: Start: 10-11-2023 SARS-CoV-2 (COVID-19 ) RNA [Presence] in Respiratory specimen by ALICE with probe detection Aury Silver Rouse DO Work Phone: Start: 09-27-2023 Lipid 1996 panel - S laurence or Plasma Praful Pineda MD Work Phone: Start: 09-27-2023 Thyrotropin [Units/v olume] in Serum or Plasma Praful Pineda MD Work Phone: Start: 06-21-2023 3 comp foot exam completed Paty Ortega [employer] Work Phone: Start: 02-19-2023 3 comp foot exam completed Paty Ortega [employer] Work Phone: Start: 02-12-2023 Lipid 1996 panel - S laurence or Plasma Ayanna Albert DO Work Phone: Start: 02-12-2023 Thyrotropin [Units/v olume] in Serum or Plasma Ayanna Albert DO Work Phone: Start: 10-19-2022 3 comp foot exam completed Paty Ortega [employer] Work Phone: Start: 06-19-2022 3 comp foot exam completed Paty Ortega [employer] Work Phone: Start: 02-13-2022 3 comp foot exam completed Mary Vargas MD Work Phone: Start: 10-13-2021 3 comp foot exam completed Paty Ortega [employer] Work Phone: Start: 06-20-2021 3 comp foot exam completed Paty Ortega [employer] Work Phone: Start: 06-11-2021 Microalbumin [Mass/v olume] in Urine by Test strip Paty Ortega [employer] Work Phone: Start: 02-26-2021 Duplex scan extracra nial art compl bi study Mary Vargas MD Work Phone: Start: 02-18-2021 3 comp foot exam completed Mary Vargas MD Work Phone: Start: 10-18-2020 3 comp foot exam completed Paty Ortega Start: 10-14-2020 Ophthalmic examinati on and evaluation Paty Ortega [employer] Work Phone: Start: 10-03-2020 Microalbumin [Mass/v olume] [...] EJACULATION WITHIN 48 HRS. [facility] VOL24,NO.2, , PG.339 Performed By: #### [id number] #### MIKE [facility] [address] [place], [place] [id number] Start: 03-13-2019 3 comp foot exam completed Keeley Patton Start: 11-11-2018 3 comp foot exam completed Mary Vargas Start: 07-05-2018 3 comp foot exam completed Keeley Patton Start: 02-15-2017 3 comp foot exam completed Ya Parker Plan of Treatment Date Care Activity Detail Author Start: 04-27-2026 Creatinine measurement Creatinine Level [facility] Start: 04-27-2026 Potassium measurement Potassium Level [facility] Start: 04-03-2026 Echocardiography Echocardiogram [facility] Start: 02-28-2026 Thyroid stimulating hormone measurement TSH Level [facility] Start: 02-12-2026 Creatinine measurement Creatinine Level [facility] Start: 02-12-2026 Lipid panel Lipid Panel [facility] Start: 02-12-2026 Potassium measurement Potassium Level [facility] Start: 02-12-2026 Thyroid stimulating hormone measurement TSH Level [facility] Start: 02-12-2026 Urine screening for protein Diabetes: Urine Protein Screening [facility] Start: 11-13-2025 Diabetic foot examination Diabetic Foot Exam [facility] Start: 10-27-2025 Screening for malignant neoplasm of lung Low-dose CT Lung Cancer Screen [facility] Start: 10-23-2025 Glaucoma screening Diabetes: Retinopathy Screening [facility] Start: 09-23-2025 eGFR Diabetes eGFR Diabetes [facility] Start: 09-05-2025 Urine screening for protein eGFR Diabetes [facility] Start: 08-27-2025 End: 08-27-2025 Patient encounter procedure 08/27/2025 1:30 PM EDT Office Visit [facility] Office Building [address] [place] [address] Ayanna Albert, DO [address] [facility] [address] [place], [place] [id number] [facility] Start: 08-14-2025 Hemoglobin A1c measurement A1C [facility] Start: 08-14-2025 Urine screening for protein eGFR Diabetes [facility] Start: 07-13-2025 End: 07-13-2025 Patient encounter procedure 07/13/2025 1:00 PM EDT Office Visit [facility] [place] [address] [place] [address] Paty Ortega, [employer] [address] [place] [address] [facility] [place] Start: 07-07-2025 Creatinine measurement Creatinine Level [facility] Start: 07-07-2025 Potassium measurement Potassium Level [facility] Start: 07-07-2025 Thyroid stimulating hormone measurement TSH Level [facility] Start: 07-02-2025 Influenza vaccination [facility] Start: 06-12-2025 End: 06-12-2025 Patient encounter procedure 06/12/2025 9:20 AM EDT Office Visit [facility] [address] [place] [address] Woo Small MD [facility] [place] [address] [facility] Start: 06-05-2025 End: 06-05-2025 Patient encounter procedure 06/05/2025 11:00 AM EDT Office Visit [facility] [address] [place] [address] Maricruz Albert, CAPPING MACHINE OPERATOR-ROLLED GOLD PLATER, DNP [address] [facility] [address] [place] [address] [facility] Start: 06-01-2025 End: 05-01-2026 Basic metabolic 2000 panel - Serum or Plasma Basic metabolic panel Lab Routine Stage 3b chronic kidney disease (Multi) Edema, unspecified type Expected: 06/01/2025 (Approximate), Expires: 05/01/2026 [facility] Work Phone: Comment on above: Expected: 06/01/2025 (Approximate), Expi res: 05/01/2026 Start: 05-30-2025 Hemoglobin A1c measurement [facility] Start: 05-17-2025 End: 05-17-2025 Patient encounter procedure [facility] Start: 05-15-2025 End: 05-01-2026 Basic metabolic 2000 panel - Serum or Plasma Basic metabolic panel Lab Routine Stage 3b chronic kidney disease (Multi) Expected: 05/15/2025 (Approximate), Expires: 05/01/2026 [facility] Service Area Work Phone: Comment on above: Expected: 05/15/2025 (Approximate), Expi res: 05/01/2026 Start: 05-15-2025 End: 05-01-2026 CBC panel - Blood by Automated count CBC Lab Routine Stage 3b chronic kidney disease (Multi) Anemia due to stage 4 chronic kidney disease Expected: 05/15/2025 (Approximate), Expires: 05/01/2026 [facility] Work Phone: Comment on above: Expected: 05/15/2025 (Approximate), Expi res: 05/01/2026 Start: 05-14-2025 Hemoglobin A1c measurement [facility] Start: 05-14-2025 End: 05-14-2025 Patient encounter procedure 05/14/2025 11:20 AM EDT Office Visit [facility] [address] [place] [phone] Woo Small MD [address] [place] [id number] [facility] Start: 05-09-2025 Patient discharge [facility] Start: 05-07-2025 Referral to service [facility] Start: 05-06-2025 [facility] Start: 05-05-2025 Application of intermittent pneumatic compression device [facility] Start: 05-05-2025 Following clinical pathway protocol [facility] Start: 05-05-2025 Assessment of risk of venous thromboembolism [facility] Start: 05-05-2025 Care regimes management [facility] Start: 05-05-2025 Catheterization of vein [facility] Start: 05-05-2025 Insertion of catheter into peripheral vein [facility] Start: 05-05-2025 Measuring intake and output [facility] Start: 05-05-2025 Notification of physician [facility] Start: 05-05-2025 Oxygen therapy [facility] Start: 05-05-2025 Providing care according to standard [facility] Start: 05-05-2025 Provision of activity privileges [facility] Start: 05-05-2025 Referral to occupational therapist [facility] Start: 05-05-2025 Referral to service [facility] Start: 05-05-2025 Gas panel - Arterial blood [facility] Start: 05-05-2025 Verification routine [facility] Start: 05-05-2025 Admission procedure [facility] Start: 05-05-2025 End: 05-05-2025 [facility] Start: 05-05-2025 Hospital admission, emergency, from emergency room, medical nature [facility] Start: 05-05-2025 End: 05-05-2025 [facility] Start: 05-05-2025 Continuous pulse oximetry [facility] Start: 05-05-2025 Dual pressure spontaneous ventilation support [facility] Start: 05-05-2025 Blood culture [facility] Start: 05-05-2025 Patient referral to dietitian [facility] Start: 04-28-2025 Urine screening for protein eGFR Diabetes [facility] Start: 04-22-2025 Patient discharge [facility] Start: 04-21-2025 Application of intermittent pneumatic compression device [facility] Start: 04-20-2025 Referral to service [facility] Start: 04-20-2025 Referral to greenbelt [facility] Start: 04-20-2025 [facility] Start: 04-20-2025 Inhalation therapy procedure [facility] Start: 04-19-2025 [facility] Start: 04-19-2025 Referral to service [facility] Start: 04-19-2025 Care planning and problem solving actions [facility] Start: 04-19-2025 [facility] Start: 04-19-2025 Gas panel - Arterial blood [facility] Start: 04-19-2025 Serum inorganic phosphate measurement [facility] Start: 04-19-2025 Thyroid stimulating hormone measurement [facility] Start: 04-19-2025 Assessment of risk of venous thromboembolism [facility] Start: 04-19-2025 Care regimes management [facility] Start: 04-19-2025 Catheterization of vein [facility] Start: 04-19-2025 Continuous pulse oximetry [facility] Start: 04-19-2025 Elevation of head of bed [facility] Start: 04-19-2025 Incentive spirometry [facility] Start: 04-19-2025 Insertion of catheter into peripheral vein [facility] Start: 04-19-2025 Measuring intake and output [facility] Start: 04-19-2025 Notification of physician [facility] Start: 04-19-2025 Oxygen therapy [facility] Start: 04-19-2025 Patient referral to dietitian [facility] Start: 04-19-2025 Providing care according to standard [facility] Start: 04-19-2025 Referral to insulation board calender operator [facility] Start: 04-19-2025 Referral to occupational therapist [facility] Start: 04-19-2025 Referral to service [facility] Start: 04-19-2025 Respiratory therapy [facility] Start: 04-19-2025 Tobacco use cessation education [facility] Start: 04-19-2025 Urinalysis complete panel - Urine [facility] Start: 04-19-2025 Vital signs measurements [facility] Start: 04-19-2025 End: 04-19-2025 [facility] Start: 04-19-2025 Following clinical pathway protocol [facility] Start: 04-19-2025 Pulmonary ventilation perfusion study [facility] Start: 04-19-2025 Verification routine [facility] Start: 04-19-2025 Admission procedure [facility] Start: 04-19-2025 Continuous positive airway pressure ventilation treatment [facility] Start: 04-18-2025 Urine screening for protein eGFR Diabetes [facility] Start: 04-10-2025 Patient discharge [facility] Start: 04-08-2025 Administration of blood product [facility] Start: 04-07-2025 Application of intermittent pneumatic compression device [facility] Start: 04-07-2025 Hemodialysis care [facility] Start: 04-07-2025 End: 04-07-2025 [facility] Start: 04-07-2025 [facility] Start: 04-06-2025 [facility] Start: 04-06-2025 Care of hemodialysis equipment [facility] Start: 04-06-2025 Hemodialysis care [facility] Start: 04-06-2025 [facility] Start: 04-05-2025 End: 04-06-2025 [facility] Start: 04-05-2025 Care of hemodialysis equipment [facility] Start: 04-05-2025 Dialysis care [facility] Start: 04-05-2025 Referral to general surgeon [facility] Start: 04-05-2025 Continuous pulse oximetry [facility] Start: 04-05-2025 Dual pressure spontaneous ventilation support [facility] Start: 04-04-2025 End: 04-04-2025 [facility] Start: 04-04-2025 Care regimes management [facility] Start: 04-04-2025 Notification of physician [facility] Start: 04-04-2025 Referral to insulation board calender operator [facility] Start: 04-04-2025 End: 04-05-2025 [facility] Start: 04-04-2025 [facility] Start: 04-03-2025 Referral to greenbelt [facility] Start: 04-03-2025 Bacteria identified in Blood by Culture Blood Culture [facility] Start: 04-03-2025 Respiratory Panel (PCR) Respiratory Panel (PCR) [facility] Start: 04-03-2025 Following clinical pathway protocol [facility] Start: 04-03-2025 Lab findings surveillance [facility] Start: 04-03-2025 End: 04-03-2025 Care planning and problem solving actions [facility] Start: 04-03-2025 End: 04-03-2025 [facility] Start: 04-03-2025 End: 04-03-2025 Following clinical pathway protocol [facility] Start: 04-03-2025 Application of elastic bandage [facility] Start: 04-03-2025 Assessment of risk of venous thromboembolism [facility] Start: 04-03-2025 Bacteria identified in Sputum by Culture [facility] Start: 04-03-2025 Care regimes management [facility] Start: 04-03-2025 Consultation [facility] Start: 04-03-2025 Elevation of affected extremity [facility] Start: 04-03-2025 Fall prevention [facility] Start: 04-03-2025 Incentive spirometry [facility] Start: 04-03-2025 Inhalation therapy procedure [facility] Start: 04-03-2025 Insertion of catheter into peripheral vein [facility] Start: 04-03-2025 Introduction of urinary catheter [facility] Start: 04-03-2025 Measuring intake and output [facility] Start: 04-03-2025 Notification of physician [facility] Start: 04-03-2025 Oxygen therapy [facility] Start: 04-03-2025 Patient education [facility] Start: 04-03-2025 Patient referral to dietitian [facility] Start: 04-03-2025 Providing care according to standard [facility] Start: 04-03-2025 Provision of activity privileges [facility] Start: 04-03-2025 Referral to occupational therapist [facility] Start: 04-03-2025 Referral to service [facility] Start: 04-03-2025 Tobacco use cessation education [facility] Start: 04-03-2025 Vital signs measurements [facility] Start: 04-03-2025 Bacterial nucleic acid assay [facility] Start: 04-03-2025 Thyroid stimulating hormone measurement [facility] Start: 04-03-2025 Streptococcus pneumoniae antigen assay [facility] Start: 04-03-2025 Verification routine [facility] Start: 04-03-2025 Admission procedure [facility] Start: 04-03-2025 [facility] Start: 04-03-2025 End: 04-03-2025 [facility] Start: 04-03-2025 Continuous pulse oximetry [facility] Start: 04-03-2025 Dual pressure spontaneous ventilation support [facility] Start: 03-23-2025 Medicare Annual Wellness Visit Medicare Annual Wellness Visit (AWV) [facility] Start: 03-12-2025 End: 03-12-2025 Patient encounter procedure 03/12/2025 2:00 PM EDT Office Visit [facility] [place] [address] [place] [phone] Paty Ortega, ROLLED GOLD PLATER [address] [place] [address] [facility] [place] Start: 02-26-2025 End: 02-26-2026 Basic metabolic 2000 panel - Serum or Plasma Basic metabolic panel Lab Routine Stage 3b chronic kidney disease (Multi) Expected: 02/26/2025 (Approximate), Expires: 02/26/2026 [facility] Service Area Work Phone: Comment on above: Expected: 02/26/2025 (Approximate), Expi res: 02/26/2026 Start: 02-06-2025 Creatinine measurement Creatinine Level [facility] Start: 02-06-2025 Potassium measurement Potassium Level [facility] Start: 02-04-2025 Hemoglobin A1c measurement A1C [facility] Start: 11-29-2024 Screening for malignant neoplasm of lung Low-dose CT Lung Cancer Screen [facility] Start: 11-27-2024 Thyroid stimulating hormone measurement TSH Level [facility] Start: 11-26-2024 Creatinine measurement Creatinine Level [facility] Start: 11-26-2024 Potassium measurement Potassium Level [facility] Start: 11-20-2024 End: 11-20-2024 Patient encounter procedure 11/20/2024 2:45 PM EST Office Visit [facility] [place] [address] [place] [address] Paty Ortega CNP [address] [place] [address] [facility] [place] Start: 11-14-2024 End: 11-14-2024 Patient encounter procedure 11/14/2024 10:40 AM EST Office Visit [facility] [address] [place] [address] Woo Small MD [address] [place] [address] [facility] Start: 11-13-2024 End: 11-13-2024 Patient encounter procedure 11/13/2024 11:30 AM EST Office Visit [facility] [place] [address] [place] [address] Paty Ortega CNP [address] [place] [address] [facility] [place] Start: 11-07-2024 End: 11-07-2024 Patient encounter procedure 11/07/2024 10:00 AM EST Office Visit [facility] [address] [place] [phone] Brock Groves MD [address] [id number] [facility] Start: 11-03-2024 End: 11-03-2024 Patient encounter procedure [facility] Start: 10-27-2024 End: 10-27-2024 Admission to same day surgery center 10/27/2024 10:05 AM EST - 10/27/2024 10:55 AM EST Surgery [facility] Cardiovascular [facility] [address] [id number] Elías Rodriguez MD [address] [place] [address] Left Heart Cath [facility] Comment on above: Left Heart Cath Start: 10-27-2024 Subsequent hospital visit by physician [facility] Procedural Care Unit Start: 10-18-2024 End: 10-18-2024 Patient encounter procedure 10/18/2024 1:20 PM EST Office Visit [facility] [address] 3rd [place] [phone] Woo Small MD [address] [place] [address] [facility] Start: 10-13-2024 Creatinine measurement Creatinine Level [facility] Start: 10-13-2024 Potassium measurement Potassium Level [facility] Start: 10-11-2024 Echocardiography Echocardiogram [facility] Start: 10-06-2024 Hemoglobin A1c measurement [facility] Start: 09-27-2024 Lipid panel Lipid Panel [facility] Start: 09-27-2024 Thyroid stimulating hormone measurement TSH Level [facility] Start: 08-29-2024 End: 08-29-2025 Comprehensive metabolic 2000 panel - Serum or Plasma Comprehensive metabolic panel Lab Routine Stage 3b chronic kidney disease (Multi) Expected: 08/29/2024 (Approximate), Expires: 08/29/2025 [facility] Service Area Work Phone: Comment on above: Expected: 08/29/2024 (Approximate), Expi res: 08/29/2025 Start: 08-29-2024 End: 08-29-2025 Microalbumin/Creatinine [Mass Ratio] in Urine Albumin-Creatinine Ratio, Urine Random Lab Routine Stage 3b chronic kidney disease (Multi) Expected: 08/29/2024 (Approximate), Expires: 08/29/2025 [facility] Work Phone: Comment on above: Expected: 08/29/2024 (Approximate), Expi res: 08/29/2025 Start: 08-29-2024 End: 08-29-2025 Urinalysis complete panel - Urine Urinalysis with Reflex Microscopic Lab Routine Stage 3b chronic kidney disease (Multi) Expected: 08/29/2024 (Approximate), Expires: 08/29/2025 [facility] Work Phone: Comment on above: Expected: 08/29/2024 (Approximate), Expi res: 08/29/2025 Start: 08-29-2024 End: 08-29-2024 Patient encounter procedure 08/29/2024 1:00 PM EDT Office Visit [facility] Medical Office Building [address] [place] [address] Maricruz Albert, CAPPING MACHINE OPERATOR-ROLLED GOLD PLATER, DNP [address] [place] [address] [facility] Start: 08-25-2024 End: 02-23-2025 Microalbumin/Creatinine [Mass Ratio] in Urine Albumin , Urine Random Lab Routine Stage 3b chronic kidney disease (Multi) Expected: 08/25/2024 (Approximate), Expires: 02/23/2025 [facility] Work Phone: Comment on above: Expected: 08/25/2024 (Approximate), Expi res: 02/23/2025 Start: 08-09-2024 Urine screening for protein Diabetes: Urine Protein Screening [facility] Start: 07-21-2024 End: 07-21-2024 Patient encounter procedure 07/21/2024 1:45 PM EDT Office Visit [facility] [place] [address] [place] [address] Paty Ortega CNP [address] [place] [address] [facility] [place] Start: 07-02-2024 COVID-19 Vaccine ( season) COVID-19 Vaccine ( season) [facility] Start: 07-02-2024 COVID-19 Vaccine ( season) COVID-19 Vaccine ( season) [facility] Start: 07-02-2024 Influenza vaccination [facility] Start: 06-21-2024 Diabetic foot examination [facility] Start: 05-31-2024 Urine screening for protein eGFR Diabetes [facility] Start: 04-24-2024 End: 04-24-2024 ambulatory [facility] Start: 04-24-2024 End: 04-24-2024 Patient encounter procedure 04/24/2024 9:40 AM EDT Office Visit [facility] [address] [place] [phone] Woo Small MD [address] [place] [address] [facility] Start: 03-27-2024 Hemoglobin A1c measurement A1C [facility] Start: 02-26-2024 Hemoglobin A1c measurement [facility] Start: 02-24-2024 End: 02-23-2025 Basic metabolic 2000 panel - Serum or Plasma Basic metabolic panel Lab Routine Stage 3b chronic kidney disease (Multi) Expected: 02/24/2024 (Approximate), Expires: 02/23/2025 [facility] Service Area Work Phone: Comment on above: Expected: 02/24/2024 (Approximate), Expi res: 02/23/2025 Start: 02-24-2024 End: 02-23-2025 Phosphate [Mass/volume] in Serum or Plasma Phosphorus Lab Routine Stage 3b chronic kidney disease (Multi) Expected: 02/24/2024 (Approximate), Expires: 02/23/2025 [facility] Work Phone: Comment on above: Expected: 02/24/2024 (Approximate), Expi res: 02/23/2025 Start: 02-24-2024 End: 02-23-2025 Urate [Mass/volume] in Serum or Plasma Uric acid Lab Routine Stage 3b chronic kidney disease (Multi) Expected: 02/24/2024 (Approximate), Expires: 02/23/2025 [facility] Work Phone: Comment on above: Expected: 02/24/2024 (Approximate), Expi res: 02/23/2025 Start: 02-24-2024 End: 02-24-2024 Patient encounter procedure 02/24/2024 1:45 PM EDT Office Visit [facility] Medical Office Building [address] [place] [phone] Maricruz Albert, CAPPING MACHINE OPERATOR-ROLLED GOLD PLATER, DNP [address] [facility] [address] [place] [address] [facility] Medical Office [facility] Start: 02-20-2024 Diabetic foot examination Foot Exam [facility] Start: 02-18-2024 End: 02-18-2024 ambulatory [facility] [place] Start: 02-18-2024 End: 02-18-2024 Patient encounter procedure 02/18/2024 1:00 PM EDT Office Visit [facility] [place] [address] [place] [phone] Paty Ortega, ROLLED GOLD PLATER [address] [place] [address] [facility] [place] Start: 02-13-2024 Lipid panel Lipid Panel [facility] Start: 02-13-2024 Thyroid stimulating hormone measurement TSH Level [facility] Start: 01-14-2024 End: 01-14-2024 ambulatory [facility] Start: 01-14-2024 End: 01-14-2024 Patient encounter procedure 01/14/2024 11:00 AM EDT Office Visit [facility] [address] [facility] [place] [address] Aylin Lacy, ROLLED GOLD PLATER [address] [place] [address] [facility] Start: 01-12-2024 End: 01-12-2024 ambulatory [facility] Start: 01-12-2024 End: 01-12-2024 Patient encounter procedure [facility] Start: 01-10-2024 End: 10-08-2024 Comprehensive metabolic 2000 panel - Serum or Plasma Comprehensive Metabolic Panel Lab Routine 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) Expected: 01/10/2024 (Approximate), Expires: 10/08/2024 [facility] Work Phone: Comment on above: Expected: 01/10/2024 (Approximate), Expi res: 10/08/2024 Start: 01-10-2024 End: 10-08-2024 Hemoglobin A1c/Hemoglobin.total in Blood Hemoglobin A1c Lab Routine 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) Expected: 01/10/2024 (Approximate), Expires: 10/08/2024 [facility] Comment on above: Expected: 01/10/2024 (Approximate), Expi res: 10/08/2024 Start: 12-28-2023 Hemoglobin A1c measurement Diabetes: Hemoglobin A1C [facility] Start: 12-09-2023 Glaucoma screening Diabetes: Retinopathy Screening [facility] Start: 11-29-2023 End: 11-29-2023 Patient encounter procedure [facility] Start: 10-19-2023 Diabetic foot examination Foot Exam [facility] Start: 10-08-2023 End: 10-08-2023 Patient encounter procedure 10/08/2023 11:15 AM EST Office Visit [facility] [place] [address] [place] [phone] Mary Vargas MD [address] [place] [address] [facility] [place] Start: 09-11-2023 Hemoglobin A1c measurement [facility] Start: 08-25-2023 End: 08-25-2024 Basic metabolic 2000 panel - Serum or Plasma Basic metabolic panel Lab Routine Stage 3b chronic kidney disease (CMS/HCC) Expected: 08/25/2023 (Approximate), Expires: 08/25/2024 [facility] Service Area Work Phone: Comment on above: Expected: 08/25/2023 (Approximate), Expi res: 08/25/2024 Start: 08-25-2023 End: 08-25-2024 Microalbumin/Creatinine [Mass Ratio] in Urine Albumin, urine, random Lab Routine Stage 3b chronic kidney disease (CMS/HCC) Expected: 08/25/2023 (Approximate), Expires: 08/25/2024 [facility] Work Phone: Comment on above: Expected: 08/25/2023 (Approximate), Expi res: 08/25/2024 Start: 07-02-2023 COVID-19 Vaccine ( season) COVID-19 Vaccine ( season) [facility] Start: 07-02-2023 Influenza vaccination [facility] Start: 06-21-2023 End: 06-21-2023 Patient encounter procedure 06/21/2023 1:15 PM EDT Office Visit [facility] [place] [address] [place] [phone] Paty Oretga CNP [address] [place] [address] [facility] [place] Start: 06-19-2023 Diabetic foot examination Foot Exam [facility] Start: 06-01-2023 End: 02-20-2024 Comprehensive metabolic 2000 panel - Serum or Plasma Comprehensive Metabolic Panel Lab Routine Type 1 diabetes mellitus with diabetic neuropathy (HCC) Expected: 06/01/2023, Expires: 02/20/2024 [facility] Work Phone: Comment on above: Expected: 06/01/2023, Expires: 4 Start: 06-01-2023 End: 02-20-2024 Hemoglobin A1c/Hemoglobin.total in Blood Hemoglobin A1c Lab Routine Type 1 diabetes mellitus with diabetic neuropathy (HCC) Expected: 06/01/2023, Expires: 02/20/2024 [facility] Comment on above: Expected: 06/01/2023, Expires: Start: 05-14-2023 Hemoglobin A1c measurement A1C [facility] Start: 02-19-2023 End: 02-19-2023 Patient encounter procedure 02/19/2023 Office Visit Endocrinology Paty Ortega, TRISTAN [address] [place] [address] [facility] [place] Start: 02-13-2023 Diabetic foot examination Foot Exam [facility] Start: 02-05-2023 End: 02-05-2023 Patient encounter procedure 02/05/2023 Appointment Cardiology Paty Ortega CNP [address] [place] [address] [facility] Start: 01-30-2023 End: 10-20-2023 Complete blood count with white cell differential, manual CBC and Differential Lab Routine Type 1 diabetes mellitus with diabetic neuropathy (HCC) Expected: 01/30/2023, Expires: 10/20/2023 [facility] Comment on above: Expected: 01/30/2023, Expires: Start: 01-30-2023 End: 12-20-2023 Comprehensive metabolic 2000 panel - Serum or Plasma Comprehensive Metabolic Panel Lab Routine Type 1 diabetes mellitus with diabetic neuropathy (HCC) Expected: 01/30/2023, Expires: 10/20/2023 [facility] Comment on above: Expected: 01/30/2023, Expires: 3 Start: 01-30-2023 End: 10-20-2023 Hemoglobin A1c/Hemoglobin.total in Blood Hemoglobin A1c Lab Routine Type 1 diabetes mellitus with diabetic neuropathy (HCC) Expected: 01/30/2023, Expires: 10/20/2023 [facility] Comment on above: Expected: 01/30/2023, Expires: 3 Start: 01-30-2023 End: 10-20-2023 Lipid 1996 panel - Serum or Plasma Lipid Panel Lab Routine Type 1 diabetes mellitus with diabetic neuropathy (HCC) Expected: 01/30/2023, Expires: 10/20/2023 [facility] Comment on above: Expected: 01/30/2023, Expires: 3 Start: 01-30-2023 End: 10-19-2023 Microalbumin measurement, urine, quantitative Microalbumin/Creatinine Ratio, UR Random Lab Routine Type 1 diabetes mellitus with diabetic neuropathy (HCC) Expected: 01/30/2023, Expires: 10/19/2023 [facility] Comment on above: Expected: 01/30/2023, Expires: 3 Start: 01-30-2023 End: 10-20-2023 Prostate specific Ag [Mass/volume] in Serum or Plasma PSA, Screen Lab Routine Prostate cancer screening Expected: 01/30/2023, Expires: 10/20/2023 [facility] Comment on above: Expected: 01/30/2023, Expires: 3 Start: 01-30-2023 End: 10-20-2023 Thyrotropin [Units/volume] in Serum or Plasma TSH Lab Routine Type 1 diabetes mellitus with diabetic neuropathy (HCC) Expected: 01/30/2023, Expires: 10/20/2023 [facility] Comment on above: Expected: 01/30/2023, Expires: 3 Start: 01-30-2023 End: 10-20-2023 Thyroxine (T4) free [Mass/volume] in Serum or Plasma T4, Free Lab Routine Type 1 diabetes mellitus with diabetic neuropathy (HCC) Expected: 01/30/2023, Expires: 10/20/2023 [facility] Comment on above: Expected: 01/30/2023, Expires: 3 Start: 01-25-2023 [email or web address], Provider: Zoila Lopez, Status: Pen, Time: 2:45 PM [email or web address], Provider: Zoila Lopez, Status: Pen, Time: 2:45 PM [facility] Start: 01-18-2023 PTRECHECKA, Provider: Carlene Whitehead, Status: Pen, Time: 2:00 PM PTRECHECKA, Provider: Carlene Whitehead, Status: Pen, Time: 2:00 PM [facility] Work Phone: Start: 01-15-2023 [email or web address], Provider: Chaya Chan, Status: Pen, Time: 10:00 AM [email or web address], Provider: Chaya Chan, Status: Pen, Time: 10:00 AM [facility] Work Phone: Start: 01-13-2023 [email or web address], Provider: Chaya Chan, Status: Pen, Time: 10:00 AM [email or web address], Provider: Chaya Chan, Status: Pen, Time: 10:00 AM [facility] Work Phone: Start: 01-08-2023 [email or web address], Provider: Chaya Chan, Status: Pen, Time: 10:00 AM [email or web address], Provider: Chaya Chan, Status: Pen, Time: 10:00 AM [facility] Work Phone: Start: 01-06-2023 [email or web address], Provider: Zoila Lopez, Status: Pen, Time: 10:00 AM [email or web address], Provider: Zoila Lopez, Status: Pen, Time: 10:00 AM [facility] Work Phone: Start: 01-01-2023 [email or web address], Provider: Zoila Lopez, Status: Pen, Time: 10:45 AM [email or web address], Provider: Zoila Lopez, Status: Pen, Time: 10:45 AM [facility] Work Phone: Start: 12-30-2022 [email or web address], Provider: Zoila Lopez, Status: Pen, Time: 4:15 PM [email or web address], Provider: Zoila Lopez, Status: Pen, Time: 4:15 PM [facility] Work Phone: Start: 12-25-2022 [email or web address], Provider: Chaya Chan, Status: Pen, Time: 7:45 AM [email or web address], Provider: Chaya Chan, Status: Pen, Time: 7:45 AM [facility] Work Phone: Start: 10-19-2022 End: 10-19-2022 Patient encounter procedure 10/19/2022 Office Visit Endocrinology Paty Ortega CNP [address] [place] [address] [facility] [place] Start: 10-13-2022 Diabetic foot examination Foot Exam [facility] Start: 09-08-2022 Hemoglobin A1c measurement A1C [facility] Start: 07-02-2022 Influenza vaccination [facility] Start: 06-20-2022 Diabetic foot examination Foot Exam [facility] Start: 06-19-2022 End: 06-19-2022 Patient encounter procedure 06/19/2022 Office Visit Endocrinology Paty Ortega CNP [address] [place] [address] [facility] [place] Start: 06-11-2022 Microalbumin measurement, urine, quantitative Urine Microalbumin [facility] Start: 05-27-2022 History and physical examination, annual for health maintenance Wellness Visit [facility] Start: 05-27-2022 Medicare Wellness Visit Medicare Wellness Visit [facility] Start: 04-13-2022 Hemoglobin A1c measurement A1C [facility] Start: 03-06-2022 COVID-19 Vaccine (4 - Booster for Moderna series) COVID-19 Vaccine (4 - Booster for Moderna series) [facility] Start: 02-18-2022 Diabetic foot examination Foot Exam [facility] Start: 02-13-2022 End: 02-13-2022 Patient encounter procedure 02/13/2022 Office Visit Endocrinology Mary Vargas MD [address] [place] [address] [facility] [place] Start: 01-30-2022 End: 10-14-2022 Comprehensive metabolic 2000 panel - Serum or Plasma Comprehensive Metabolic Panel Lab Routine Type 1 diabetes mellitus with diabetic neuropathy (HCC) Expected: 01/30/2022, Expires: 10/14/2022 [facility] Work Phone: Comment on above: Expected: 01/30/2022, Expires: 2 Start: 01-30-2022 End: 10-14-2022 Hemoglobin A1c/Hemoglobin.total in Blood Hemoglobin A1c Lab Routine Type 1 diabetes mellitus with diabetic neuropathy (HCC) Expected: 01/30/2022, Expires: 10/14/2022 [facility] Comment on above: Expected: 01/30/2022, Expires: 2 Start: 01-30-2022 End: 10-14-2022 Lipid 1996 panel - Serum or Plasma Lipid Panel Lab Routine Type 1 diabetes mellitus with diabetic neuropathy (HCC) Expected: 01/30/2022, Expires: 10/14/2022 [facility] Comment on above: Expected: 01/30/2022, Expires: 2 Start: 01-01-2022 COVID-19 Vaccine (4 - Booster for Moderna series) COVID-19 Vaccine (4 - Booster for Moderna series) [facility] Start: 01-01-2022 COVID-19 Vaccine (4 - Moderna series) COVID-19 Vaccine (4 - Moderna series) [facility] Start: 12-12-2021 Hemoglobin A1c measurement A1C [facility] Start: 12-12-2021 Microalbumin measurement, urine, quantitative Urine Microalbumin [facility] Start: 12-12-2021 Urine screening for protein [facility] Start: 10-18-2021 Diabetic foot examination Foot Exam [facility] Start: 10-14-2021 Glaucoma screening [facility] Start: 10-13-2021 End: 10-13-2021 Patient encounter procedure 10/13/2021 Office Visit Endocrinology Paty Ortega, ROLLED GOLD PLATER [address] [place] [address] [facility] [place] Start: 10-03-2021 Albumin DL <= 20 mg/L (U) [Mass/Vol] Urine Microalbumin [facility] Start: 10-03-2021 Microalbumin measurement, urine, quantitative Urine Microalbumin [facility] Start: 10-01-2021 End: 06-21-2022 Comprehensive metabolic 2000 panel - Serum or Plasma Comprehensive Metabolic Panel Lab Routine Type 1 diabetes mellitus with diabetic polyneuropathy (HCC) Expected: 10/01/2021, Expires: 06/21/2022 [facility] Work Phone: Comment on above: Expected: 10/01/2021, Expires: 2 Start: 10-01-2021 End: 06-21-2022 Hemoglobin A1c/Hemoglobin.total in Blood Hemoglobin A1c Lab Routine Type 1 diabetes mellitus with diabetic polyneuropathy (HCC) Expected: 10/01/2021, Expires: 06/21/2022 [facility] Comment on above: Expected: 10/01/2021, Expires: 2 Start: 10-01-2021 End: 06-21-2022 Thyrotropin [Units/volume] in Serum or Plasma TSH Lab Routine Type 1 diabetes mellitus with diabetic polyneuropathy (HCC) Expected: 10/01/2021, Expires: 06/21/2022 [facility] Comment on above: Expected: 10/01/2021, Expires: 2 Start: 10-01-2021 End: 06-21-2022 Thyroxine (T4) free [Mass/volume] in Serum or Plasma T4, Free Lab Routine Type 1 diabetes mellitus with diabetic polyneuropathy (HCC) Expected: 10/01/2021, Expires: 06/21/2022 [facility] Comment on above: Expected: 10/01/2021, Expires: 2 Start: 09-11-2021 Hemoglobin A1c measurement A1C [facility] Start: 08-13-2021 Hemoglobin A1c measurement A1C [facility] Start: 07-31-2021 COVID-19 Vaccine (3 - Booster for Moderna series) COVID-19 Vaccine (3 - Booster for Moderna series) [facility] Start: 07-04-2021 Prostate specific antigen measurement PSA Level [facility] Start: 07-02-2021 Influenza vaccination Sequential Influenza Vaccine (#1) [facility] Start: 06-20-2021 End: 06-20-2021 Patient encounter procedure 06/20/2021 Office Visit Endocrinology Paty Ortega CNP [address] [place] [address] [phone] [facility] [place] Start: 04-16-2021 History and physical examination, annual for health maintenance Wellness Visit [facility] Start: 04-03-2021 HbA1c (Bld) [Mass fraction] A1C [facility] Start: 02-18-2021 End: 02-18-2021 Office Visit 02/18/2021 Office Visit Endocrinology Mary Vargas MD [address] [place] [address] [phone] [facility] Start: 02-02-2021 End: 10-19-2021 Comprehensive metabolic 2000 panel Comprehensive Metabolic Panel Lab Routine Type 1 diabetes mellitus with diabetic polyneuropathy (HCC) Expected: 02/02/2021, Expires: 10/19/2021 [facility] Comment on above: Expected: 02/02/2021, Expires: Start: 02-02-2021 End: 10-19-2021 Free T4 [Mass/Vol] T4, Free Lab Routine Type 1 diabetes mellitus with diabetic polyneuropathy (HCC) Expected: 02/02/2021, Expires: 10/19/2021 [facility] Comment on above: Expected: 02/02/2021, Expires: Start: 02-02-2021 End: 10-19-2021 HbA1c (Bld) [Mass fraction] Hemoglobin A1c Lab Routine Type 1 diabetes mellitus with diabetic polyneuropathy (HCC) Expected: 02/02/2021, Expires: 10/19/2021 [facility] Comment on above: Expected: 02/02/2021, Expires: Start: 02-02-2021 End: 10-19-2021 TSH Qn TSH Lab Routine Type 1 diabetes mellitus with diabetic polyneuropathy (HCC) Expected: 02/02/2021, Expires: 10/19/2021 [facility] Comment on above: Expected: 02/02/2021, Expires: Start: 12-11-2020 HbA1c (Bld) [Mass fraction] A1C [facility] Start: 11-16-2020 Diabetic foot examination Foot Exam [facility] Start: 10-18-2020 End: 10-18-2020 Office Visit 10/18/2020 Office Visit Endocrinology Keeley Patton, [employer] [address] [id number] [facility] Start: 10-01-2020 End: 06-19-2021 Comprehensive metabolic 2000 panel Comprehensive Metabolic Panel Lab Routine Type 1 diabetes mellitus with diabetic polyneuropathy (HCC) Expected: 10/01/2020, Expires: 06/19/2021 [facility] Comment on above: Expected: 10/01/2020, Expires: Start: 10-01-2020 End: 06-19-2021 HbA1c (Bld) [Mass fraction] Hemoglobin A1c Lab Routine Type 1 diabetes mellitus with diabetic polyneuropathy (HCC) Expected: 10/01/2020, Expires: 06/19/2021 [facility] Comment on above: Expected: 10/01/2020, Expires: Start: 10-01-2020 End: 06-19-2021 Lipid 1996 panel Lipid Panel Lab Routine Type 1 diabetes mellitus with diabetic polyneuropathy (HCC) Expected: 10/01/2020, Expires: 06/19/2021 [facility] Comment on above: Expected: 10/01/2020, Expires: Start: 10-01-2020 End: 06-18-2021 Microalbumin measurement, urine, quantitative Microalbumin/Creatinine Ratio, UR Random Lab Routine Type 1 diabetes mellitus with diabetic polyneuropathy (HCC) Expected: 10/01/2020, Expires: 06/18/2021 [facility] Comment on above: Expected: 10/01/2020, Expires: Start: 07-17-2020 Diabetic foot examination FOOT EXAM [facility] Start: 07-02-2020 Influenza vaccination Sequential Influenza Vaccine (#1) [facility] Start: 07-02-2020 Influenza vaccination given Sequential Influenza Vaccine (#1) [facility] Start: 05-03-2020 HbA1c (Bld) [Mass fraction] A1C [facility] Start: 03-15-2020 End: 03-15-2020 Office Visit 03/15/2020 Office Visit Endocrinology Keeley Patton CNP [address] [place] [address] [phone] [facility] Start: 03-13-2020 Diabetic foot examination FOOT EXAM [facility] Start: 01-02-2020 HbA1c (Bld) [Mass fraction] A1C [facility] Start: 11-16-2019 End: 11-16-2019 Office Visit 11/16/2019 Office Visit Endocrinology Paty Ortega CNP [address] [place] [address] [phone] [facility] Start: 11-11-2019 Diabetic foot examination FOOT EXAM [facility] Start: 07-17-2019 End: 07-17-2019 Office Visit 07/17/2019 Office Visit Endocrinology Keeley Patton CNP [address] [place] [address] [phone] [facility] Start: 07-05-2019 Diabetic foot examination FOOT EXAM [facility] Start: 07-02-2019 Influenza vaccination given [facility] Start: 03-13-2019 End: 03-13-2019 Ambulatory 03/13/2019 Office Visit Endocrinology Mary Vargas MD [address] [place] [address] [phone] [facility] Start: 02-28-2019 Diabetic foot examination (regime/therapy) FOOT EXAM [facility] Start: 01-31-2019 Pneumococcal vaccination PNEUMOCOCCAL VACCINE AGE 65+ (2 of 2 - PPSV23) [facility] Start: 2018 Respiratory Syncytial Virus Immunization: Risk, 60-74 Risk, or 75+ (1 - 1-dose 75+ series) Respiratory Syncytial Virus Immunization: Risk, 60-74 Risk, or 75+ (1 - 1-dose 75+ series) [facility] Start: 2018 RSV High Risk: (Elderly (60+) or Population) (1 - 1-dose 75+ series) RSV High Risk: (Elderly (60+) or Population) (1 - 1-dose 75+ series) [facility] Start: 11-08-2018 End: 11-08-2018 Ambulatory 11/08/2018 Office Visit Endocrinology Ya Parker PA-C [address] [facility] [address] [place] [address] [phone] [facility] Start: 10-29-2018 Diabetic foot examination (regime/therapy) FOOT EXAM [facility] Work Phone: Start: 07-05-2018 End: 07-05-2018 Ambulatory 07/05/2018 Office Visit Endocrinology Paty Ortega CNP [address] [facility] [address] [place] [address] [phone] [facility] Start: 07-02-2018 Influenza vaccination [facility] Start: 07-02-2018 Influenza vaccination given SEQUENTIAL INFLUENZA VACCINE (#1) [facility] Start: 02-28-2018 Ambulatory 02/28/2018 Office Visit Endocrinology Aelxandra Givens CNP [address] [facility] [address] [place] [address] [phone] [facility] Start: 02-15-2018 3 comp foot exam completed FOOT EXAM [facility] Work Phone: Start: 10-29-2017 Ambulatory 10/29/2017 Office Visit Endocrinology Mary Vargas MD [address] [facility] [address] [place] [address] [phone] [facility] Start: 07-02-2017 Influenza vaccination SEQUENTIAL INFLUENZA VACCINE (#1) [facility] Work Phone: Start: 07-02-2017 SEQUENTIAL INFLUENZA VACCINE (#1) SEQUENTIAL INFLUENZA VACCINE (#1) [facility] Work Phone: Start: 05-10-2017 HbA1c [facility] Work Phone: Start: 2008 ABDOMINAL AORTIC ULTRASOUND ABDOMINAL AORTIC ULTRASOUND [facility] Work Phone: Start: 2008 Fall risk assessment [facility] Start: 2008 Pneumococcal vaccination PNEUMOCOCCAL VACCINE AGE 65+ (1 of 2 - PCV13) [facility] Work Phone: Start: 2008 PNEUMOCOCCAL VACCINE AGE 65+ (1 of 2 - PCV13) PNEUMOCOCCAL VACCINE AGE 65+ (1 of 2 - PCV13) [facility] Work Phone: Start: 2008 Ultrasound scan of abdominal aorta ABDOMINAL AORTIC ULTRASOUND [facility] Work Phone: Start: 2003 RSV patients and/or patients aged 60+ years (1 - 1-dose 60+ series) RSV patients and/or patients aged 60+ years (1 - 1-dose 60+ series) [facility] Start: 2003 Zoster vacc, sc ZOSTER VACCINE [facility] Work Phone: Start: 1993 Administration of herpes zoster vaccine ZOSTER VACCINES (1 of 2) [facility] Start: 1993 ZOSTER VACCINES (1 of 2) ZOSTER VACCINES (1 of 2) [facility] Start: 1965 DTaP/Tdap/Td Vaccines (1 - Tdap) DTaP/Tdap/Td Vaccines (1 - Tdap) [facility] Start: 1961 Hepatitis C antibody, confirmatory test Hepatitis C Screening [facility] Start: 1961 Hepatitis C screening Hepatitis C Screening [facility] Start: 1955 Adolescent depression screening assessment Depression Screening (PHQ9) [facility] Start: 1955 Depression screening using PHQ-9 (Patient Health Questionnaire 9) score [facility] Start: 1953 Albumin Test strip detection limit <= 20 mg/L mass conc (U) URINE MICROALBUMIN [facility] Work Phone: Start: 1953 Diabetic foot examination Diabetes: Foot Exam [facility] Start: 1953 Glaucoma screening [facility] Start: 1953 Ophthalmic examination and evaluation OPHTHALMOLOGY EXAM [facility] Start: 1953 Urine, microalbumin URINE MICROALBUMIN [facility] Work Phone: Start: 1949 Pneumococcal Vaccine: Age 65+ (1 of 2 - PPSV23) Pneumococcal Vaccine: Age 65+ (1 of 2 - PPSV23) [facility] Start: 1946 History and physical examination, annual for health maintenance Wellness Visit [facility] Start: 1943 End: 1943 Low-dose CT Lung Cancer Screen Low-dose CT Lung Cancer Screen [facility] Work Phone: Start: 1943 Protein mass conc COLONOSCOPY [facility] Start: 1943 Screening colonoscopy COLONOSCOPY [facility] Work Phone: Start: 1943 End: 1943 Screening for malignant neoplasm of lung Low-dose CT Lung Cancer Screen [facility] Start: 1943 End: 1943 Tetanus vaccination [facility] Start: 1943 Colonoscopy COLONOSCOPY [facility] Work Phone: Start: 1943 Cyanocobalamin vitamin b-12 Vitamin B-12 [facility] Start: 1943 Diabetes: Celiac Disease Screening Diabetes: Celiac Disease Screening [facility] Start: 1943 Fall risk assessment Falls Risk Assessment [facility] Start: 1943 Low dose computed tomography of chest without contrast Low-dose CT Lung Cancer Screen [facility] Start: 1943 Medicare Annual Wellness Visit Medicare Annual Wellness Visit (AWV) [facility] Start: 1943 Prostate specific antigen measurement PSA Level [facility] Start: 1943 Screening for malignant neoplasm of colon Colorectal Cancer Screening: Colonoscopy [facility] Start: 1943 TETANUS EVERY 10 YR TETANUS EVERY 10 YR [facility] Work Phone: Alanine aminotransferase [Enzymatic activity/volume] in Serum or Plasma [facility] Alanine aminotransferase [Enzymatic activity/volume] in Serum or Plasma [facility] Alanine aminotransferase [Enzymatic activity/volume] in Serum or Plasma [facility] Albumin [Mass/volume ] in Serum or Plasma [facility] Albumin [Mass/volume ] in Serum or Plasma [facility] Albumin [Mass/volume ] in Serum or Plasma [facility] Alkaline phosphatase [Enzymatic activity/volume] in Serum or Plasma [facility] Alkaline phosphatase [Enzymatic activity/volume] in Serum or Plasma [facility] Alkaline phosphatase [Enzymatic activity/volume] in Serum or Plasma [facility] Anion gap in Serum o r Plasma [facility] Anion gap in Serum o r Plasma [facility] Anion gap in Serum o r Plasma [facility] aPTT in Platelet poo r plasma by Coagulation assay aPTT - baseline Lab STAT As needed (Lab) for 1 Occurrences starting 11/26/2023 [facility] Work Phone: Comment on above: As needed (Lab) for 1 Occurrences starti ng 11/26/2023 Bacteria identified in Blood by Culture [facility] Work Phone: End: 11-26-2023 Bacteria identified in Blood by Culture [facility] Work Phone: Comment on above: STAT (Lab) for 1 Occurrences starting until 11/26/2023 Bacteria identified in Blood by Culture [facility] Work Phone: End: 10-27-2024 Bacteria identified in Unspecified specimen by Aerobe culture [facility] Work Phone: Comment on above: Once for 1 Occurrences starting 10/27/20 until 10/27/2024 End: 06-18-2018 Basic metabolic 2000 panel Basic Metabolic Panel Routine Type 1 diabetes mellitus with diabetic neuropathy (HCC) 1 Occurrences starting 06/17/2017 until 06/18/2018 [facility] Work Phone: Comment on above: 1 Occurrences starting 06/17/2017 until 06/18/2018 End: 10-14-2023 Basic metabolic 2000 panel - Serum or Plasma Basic Metabolic Panel Lab Routine Morning draw (Lab) for 3 Occurrences starting 10/12/2023 until 10/14/2023, 1 completed [facility] Work Phone: Comment on above: Morning draw (Lab) for 3 Occurrences sta rting 10/12/2023 until 10/14/2023, 1 completed End: 03-09-2026 Basic metabolic 2000 panel - Serum or Plasma Basic metabolic panel Lab Routine Coronary 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 NSTEMI (non-ST elevated myocardial infarction) ([facility]) 1 Occurrences starting 03/09/2025 until 03/09/2026 [facility] Work Phone: Comment on above: 1 Occurrences starting 03/09/2025 until 03/09/2026 Bilirubin, total measurement [facility] Bilirubin, total measurement [facility] Bilirubin, total measurement [facility] BUN/Creatinine ratio [facility] BUN/Creatinine ratio [facility] BUN/Creatinine ratio [facility] Calcium [Mass/volume ] in Serum or Plasma [facility] Calcium [Mass/volume ] in Serum or Plasma [facility] Calcium [Mass/volume ] in Serum or Plasma [facility] Carbon dioxide, tota l [Moles/volume] in Central venous blood [facility] Carbon dioxide, tota l [Moles/volume] in Central venous blood [facility] Carbon dioxide, tota l [Moles/volume] in Central venous blood [facility] End: 04-20-2022 Carotid artery doppler assessment Ultrasound doppler carotid Vascular Ultrasound Routine Bilateral carotid artery stenosis 1 Occurrences starting 02/18/2021 until 04/20/2022 [facility] Comment on above: 1 Occurrences starting 02/18/2021 until 04/20/2022 End: 12-20-2023 Carotid artery doppler assessment Ultrasound doppler carotid Vascular Ultrasound Routine Bilateral carotid artery stenosis 1 Occurrences starting 10/19/2022 until 12/20/2023 [facility] Work Phone: Comment on above: 1 Occurrences starting 10/19/2022 until 12/20/2023 Cath plmt l hrt & ar ts w/njx & angio img s&i LEFT HEART CATH Cardiovascular stress test abnormal Fatigue, unspecified type SOB (shortness of breath) [facility] End: 02-28-2019 CBC and Differential CBC and Differential Routine Type 1 diabetes mellitus with diabetic neuropathy (HCC) 1 Occurrences starting 02/28/2018 until 02/28/2019 [facility] CBC panel - Blood by Automated count CBC Lab STAT As needed (Lab) for 1 Occurrences starting 11/26/2023 [facility] Work Phone: Comment on above: As needed (Lab) for 1 Occurrences starti ng 11/26/2023 End: 12-02-2023 CBC panel - Blood by Automated count CBC Lab STAT Every other day (Lab) for 3 Occurrences starting 11/28/2023 until 12/02/2023 [facility] Work Phone: Comment on above: Every other day (Lab) for 3 Occurrences starting 11/28/2023 until 12/02/2023 End: 10-14-2023 CBC W Auto Differential panel - Blood CBC and Auto Differential Lab Routine Morning draw (Lab) for 3 Occurrences starting 10/12/2023 until 10/14/2023, 2 completed [facility] Work Phone: Comment on above: Morning draw (Lab) for 3 Occurrences sta rting 10/12/2023 until 10/14/2023, 2 completed Cholesterol [Mass/volume] in Serum or Plasma [facility] Cholesterol in HDL [Mass/volume] in Serum or Plasma [facility] End: 11-11-2019 Complete blood count with white cell differential, manual CBC and Differential Routine Type 1 diabetes mellitus with diabetic neuropathy (HCC) 1 Occurrences starting 11/11/2018 until 11/11/2019 [facility] Comment on above: 1 Occurrences starting 11/11/2018 until 11/11/2019 End: 03-13-2020 Complete blood count with white cell differential, manual CBC and Differential Routine 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) 1 Occurrences starting 03/13/2019 until 03/13/2020 [facility] Comment on above: 1 Occurrences starting 03/13/2019 until 03/13/2020 End: 02-19-2022 Complete blood count with white cell differential, manual CBC and Differential Lab Routine Type 1 diabetes mellitus with diabetic polyneuropathy (HCC) 1 Occurrences starting 02/18/2021 until 02/19/2022 [facility] Comment on above: 1 Occurrences starting 02/18/2021 until 02/19/2022 End: 02-14-2023 Complete blood count with white cell differential, manual CBC and Differential Lab Routine Type 1 diabetes mellitus with diabetic neuropathy (HCC) 1 Occurrences starting 02/13/2022 until 02/14/2023 [facility] Work Phone: Comment on above: 1 Occurrences starting 02/13/2022 until 02/14/2023 End: 02-18-2025 Complete blood count with white cell differential, manual CBC and Differential Lab Routine Type 1 diabetes mellitus with diabetic neuropathy (HCC) 1 Occurrences starting 02/18/2024 until 02/18/2025 [facility] Comment on above: 1 Occurrences starting 02/18/2024 until 02/18/2025 End: 07-22-2025 Complete blood count with white cell differential, manual CBC and Differential Lab Routine Type 1 diabetes mellitus with diabetic neuropathy (HCC) 1 Occurrences starting 07/21/2024 until 07/22/2025 [facility] Comment on above: 1 Occurrences starting 07/21/2024 until 07/22/2025 End: 03-13-2026 Complete blood count with white cell differential, manual CBC and Differential Lab Routine Type 1 diabetes mellitus with diabetic neuropathy (HCC) 1 Occurrences starting 03/12/2025 until 03/13/2026 [facility] Comment on above: 1 Occurrences starting 03/12/2025 until 03/13/2026 End: 10-27-2025 Complete PFT with Pre and Post Bronchodilator Complete PFT with Pre and Post Bronchodilator PFT Routine Pulmonary emphysema, unspecified emphysema type (HCC) 1 Occurrences starting 10/27/2024 until 10/27/2025 [facility] Comment on above: 1 Occurrences starting 10/27/2024 until 10/27/2025 End: 07-06-2019 Comprehensive metabolic 2000 panel Comprehensive Metabolic Panel Routine Type 1 diabetes mellitus with diabetic neuropathy (HCC) 1 Occurrences starting 07/05/2018 until 07/06/2019 [facility] Comment on above: 1 Occurrences starting 07/05/2018 until 07/06/2019 End: 11-11-2019 Comprehensive metabolic 2000 panel Comprehensive Metabolic Panel Routine Essential hypertension 1 Occurrences starting 11/11/2018 until 11/11/2019 [facility] Comment on above: 1 Occurrences starting 11/11/2018 until 11/11/2019 End: 07-17-2020 Comprehensive metabolic 2000 panel Comprehensive Metabolic Panel Lab Routine Type 1 diabetes mellitus with diabetic polyneuropathy (HCC) 1 Occurrences starting 07/17/2019 until 07/17/2020 [facility] Comment on above: 1 Occurrences starting 07/17/2019 until 07/17/2020 End: 11-16-2020 Comprehensive metabolic 2000 panel Comprehensive Metabolic Panel Lab Routine Type I diabetes mellitus with neurological manifestations, uncontrolled (HCC) 1 Occurrences starting 11/16/2019 until 11/16/2020 [facility] Comment on above: 1 Occurrences starting 11/16/2019 until 11/16/2020 End: 03-13-2020 Comprehensive metabolic 2000 panel Comprehensive Metabolic Panel Routine 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) 1 Occurrences starting 03/13/2019 until 03/13/2020 [facility] Comment on above: 1 Occurrences starting 03/13/2019 until 03/13/2020 End: 02-19-2022 Comprehensive metabolic 2000 panel - Serum or Plasma Comprehensive Metabolic Panel Lab Routine Type 1 diabetes mellitus with diabetic polyneuropathy (HCC) 1 Occurrences starting 02/18/2021 until 02/19/2022 [facility] Comment on above: 1 Occurrences starting 02/18/2021 until 02/19/2022 End: 02-14-2023 Comprehensive metabolic 2000 panel - Serum or Plasma Comprehensive Metabolic Panel Lab Routine Type 1 diabetes mellitus with diabetic neuropathy (HCC) 1 Occurrences starting 02/13/2022 until 02/14/2023 [facility] Comment on above: 1 Occurrences starting 02/13/2022 until 02/14/2023 End: 06-20-2023 Comprehensive metabolic 2000 panel - Serum or Plasma Comprehensive Metabolic Panel Lab Routine Type 1 diabetes mellitus with diabetic neuropathy (HCC) 1 Occurrences starting 06/19/2022 until 06/20/2023 [facility] Work Phone: Comment on above: 1 Occurrences starting 06/19/2022 until 06/20/2023 End: 02-18-2025 Comprehensive metabolic 2000 panel - Serum or Plasma Comprehensive Metabolic Panel Lab Routine Type 1 diabetes mellitus with diabetic neuropathy (HCC) 1 Occurrences starting 02/18/2024 until 02/18/2025 [facility] Work Phone: Comment on above: 1 Occurrences starting 02/18/2024 until 02/18/2025 End: 07-22-2025 Comprehensive metabolic 2000 panel - Serum or Plasma Comprehensive Metabolic Panel Lab Routine Type 1 diabetes mellitus with diabetic neuropathy (HCC) 1 Occurrences starting 07/21/2024 until 07/22/2025 [facility] Work Phone: Comment on above: 1 Occurrences starting 07/21/2024 until 07/22/2025 End: 11-14-2025 Comprehensive metabolic 2000 panel - Serum or Plasma Comprehensive Metabolic Panel Lab Routine Type 1 diabetes mellitus with diabetic neuropathy (HCC) 1 Occurrences starting 11/13/2024 until 11/14/2025 [facility] Work Phone: Comment on above: 1 Occurrences starting 11/13/2024 until 11/14/2025 End: 03-13-2026 Comprehensive metabolic 2000 panel - Serum or Plasma Comprehensive Metabolic Panel Lab Routine Type 1 diabetes mellitus with diabetic neuropathy (HCC) 1 Occurrences starting 03/12/2025 until 03/13/2026 [facility] Work Phone: Comment on above: 1 Occurrences starting 03/12/2025 until 03/13/2026 End: 02-28-2019 Comprehensive metabolic panel [AGGREGATE] Comprehensive Metabolic Panel Routine Type 1 diabetes mellitus with diabetic neuropathy (HCC) Essential hypertension 1 Occurrences starting 02/28/2018 until 02/28/2019 [facility] End: 10-30-2018 Comprehensive metabolic panel [AGGREGATE] Comprehensive Metabolic Panel Routine Type 1 diabetes mellitus with diabetic neuropathy (HCC) Essential hypertension Pure hypercholesterolemia 1 Occurrences starting 10/29/2017 until 10/30/2018 [facility] Work Phone: Creatinine [Mass/volume] in Serum or Plasma [facility] Creatinine [Mass/volume] in Serum or Plasma [facility] Creatinine [Mass/volume] in Serum or Plasma [facility] End: 11-26-2023 ECG 12 lead [facility] Work Phone: Comment on above: Once for 1 Occurrences starting 11/26/19 until 11/26/2023 Electrocardiogram, 12-lead PRN ACS symptoms Electrocardiogram, 12-lead PRN ACS symptoms ECG Routine As needed until discontinued starting 10/11/2023 [facility] Work Phone: Comment on above: As needed until discontinued starting Electrocardiogram, 12-lead PRN ACS symptoms Electrocardiogram, 12-lead PRN ACS symptoms ECG Routine As needed until discontinued starting 10/11/2023 [facility] Work Phone: Comment on above: As needed until discontinued starting Erythrocyte mean corpuscular volume determination [facility] Erythrocyte mean corpuscular volume determination [facility] Erythrocyte mean corpuscular volume determination [facility] End: 02-28-2019 External Lab Microalbumin/Creatinine External Lab Microalbumin/Creatinine Routine Type 1 diabetes mellitus with diabetic neuropathy (HCC) Essential hypertension 1 Occurrences starting 02/28/2018 until 02/28/2019 [facility] End: 11-11-2019 External Lab Microalbumin/Creatinine External Lab Microalbumin/Creatinine Routine Essential hypertension 1 Occurrences starting 11/11/2018 until 11/11/2019 [facility] Comment on above: 1 Occurrences starting 11/11/2018 until 11/11/2019 End: 02-19-2022 External Lab Microalbumin/Creatinine External Lab Microalbumin/Creatinine Lab Routine Type 1 diabetes mellitus with diabetic polyneuropathy (HCC) 1 Occurrences starting 02/18/2021 until 02/19/2022 [facility] Comment on above: 1 Occurrences starting 02/18/2021 until 02/19/2022 End: 02-14-2023 External Lab Microalbumin/Creatinine External Lab Microalbumin/Creatinine Lab Routine Type 1 diabetes mellitus with diabetic neuropathy (HCC) 1 Occurrences starting 02/13/2022 until 02/14/2023 [facility] Comment on above: 1 Occurrences starting 02/13/2022 until 02/14/2023 Glucose [Mass/volume ] in Serum or Plasma POCT GLUCOSE Point of Care Testing Routine 4x daily - AC and at bedtime until discontinued starting 10/11/2023 [facility] Work Phone: Comment on above: 4x daily - AC and at bedtime until disco ntinued starting 10/11/2023 End: 10-15-2023 Glucose [Mass/volume] in Serum or Plasma POCT GLUCOSE Point of Care Testing Routine 4 times daily before meals and at bedtime for 3 Days starting 10/12/2023 until 10/15/2023 [facility] Work Phone: Comment on above: 4 times daily before meals and at bedtim e for 3 Days starting 10/12/2023 until 10/15/2023 Glucose [Mass/volume ] in Serum or Plasma [facility] Glucose [Mass/volume ] in Serum or Plasma [facility] Glucose [Mass/volume ] in Serum or Plasma [facility] End: 02-28-2019 HbA1c Hemoglobin A1c Routine Type 1 diabetes mellitus with diabetic neuropathy (HCC) Essential hypertension 1 Occurrences starting 02/28/2018 until 02/28/2019 [facility] End: 10-30-2018 HbA1c Hemoglobin A1c Routine Type 1 diabetes mellitus with diabetic neuropathy (HCC) Essential hypertension Pure hypercholesterolemia 1 Occurrences starting 10/29/2017 until 10/30/2018 [facility] Work Phone: End: 07-17-2020 HbA1c (Bld) [Mass fraction] Hemoglobin A1c Lab Routine Type 1 diabetes mellitus with diabetic polyneuropathy (HCC) 1 Occurrences starting 07/17/2019 until 07/17/2020 [facility] Comment on above: 1 Occurrences starting 07/17/2019 until 07/17/2020 End: 11-16-2020 HbA1c (Bld) [Mass fraction] Hemoglobin A1c Lab Routine Type I diabetes mellitus with neurological manifestations, uncontrolled (HCC) 1 Occurrences starting 11/16/2019 until 11/16/2020 [facility] Comment on above: 1 Occurrences starting 11/16/2019 until 11/16/2020 End: 03-13-2020 HbA1c (Bld) [Mass fraction] Hemoglobin A1c Routine 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) 1 Occurrences starting 03/13/2019 until 03/13/2020 [facility] Comment on above: 1 Occurrences starting 03/13/2019 until 03/13/2020 Hematocrit [Volume Fraction] of Blood [facility] Hematocrit [Volume Fraction] of Blood [facility] Hematocrit [Volume Fraction] of Blood [facility] Hemoglobin [Mass/volume] in Blood [facility] Hemoglobin [Mass/volume] in Blood [facility] Hemoglobin [Mass/volume] in Blood [facility] End: 02-19-2022 Hemoglobin A1c/Hemoglobin.total in Blood Hemoglobin A1c Lab Routine Type 1 diabetes mellitus with diabetic polyneuropathy (HCC) 1 Occurrences starting 02/18/2021 until 02/19/2022 [facility] Comment on above: 1 Occurrences starting 02/18/2021 until 02/19/2022 End: 02-14-2023 Hemoglobin A1c/Hemoglobin.total in Blood Hemoglobin A1c Lab Routine Type 1 diabetes mellitus with diabetic neuropathy (HCC) 1 Occurrences starting 02/13/2022 until 02/14/2023 [facility] Comment on above: 1 Occurrences starting 02/13/2022 until 02/14/2023 End: 06-20-2023 Hemoglobin A1c/Hemoglobin.total in Blood Hemoglobin A1c Lab Routine Type 1 diabetes mellitus with diabetic neuropathy (HCC) 1 Occurrences starting 06/19/2022 until 06/20/2023 [facility] Comment on above: 1 Occurrences starting 06/19/2022 until 06/20/2023 End: 02-18-2025 Hemoglobin A1c/Hemoglobin.total in Blood Hemoglobin A1c Lab Routine Type 1 diabetes mellitus with diabetic neuropathy (HCC) 1 Occurrences starting 02/18/2024 until 02/18/2025 [facility] Comment on above: 1 Occurrences starting 02/18/2024 until 02/18/2025 End: 07-22-2025 Hemoglobin A1c/Hemoglobin.total in Blood Hemoglobin A1c Lab Routine Type 1 diabetes mellitus with diabetic neuropathy (HCC) 1 Occurrences starting 07/21/2024 until 07/22/2025 [facility] Comment on above: 1 Occurrences starting 07/21/2024 until 07/22/2025 End: 11-14-2025 Hemoglobin A1c/Hemoglobin.total in Blood Hemoglobin A1c Lab Routine Type 1 diabetes mellitus with diabetic neuropathy (HCC) 1 Occurrences starting 11/13/2024 until 11/14/2025 [facility] Comment on above: 1 Occurrences starting 11/13/2024 until 11/14/2025 End: 03-13-2026 Hemoglobin A1c/Hemoglobin.total in Blood Hemoglobin A1c Lab Routine Type 1 diabetes mellitus with diabetic neuropathy (HCC) 1 Occurrences starting 03/12/2025 until 03/13/2026 [facility] Comment on above: 1 Occurrences starting 03/12/2025 until 03/13/2026 Hemoglobin A1c/Hemoglobin.total in Blood [facility] End: 07-06-2019 Hemoglobin A1c/Hemoglobin.total mass fraction (Bld) Hemoglobin A1c Routine Type 1 diabetes mellitus with diabetic neuropathy (HCC) 1 Occurrences starting 07/05/2018 until 07/06/2019 [facility] Comment on above: 1 Occurrences starting 07/05/2018 until 07/06/2019 End: 11-11-2019 Hemoglobin A1c/Hemoglobin.total mass fraction (Bld) Hemoglobin A1c Routine Type 1 diabetes mellitus with diabetic neuropathy (HCC) 1 Occurrences starting 11/11/2018 until 11/11/2019 [facility] Comment on above: 1 Occurrences starting 11/11/2018 until 11/11/2019 End: 06-18-2018 Hemoglobin A1c/Hemoglobin.total mass fraction (Bld) Hemoglobin A1c Routine Type 1 diabetes mellitus with diabetic neuropathy (HCC) 1 Occurrences starting 06/17/2017 until 06/18/2018 [facility] Work Phone: Comment on above: 1 Occurrences starting 06/17/2017 until 06/18/2018 Heparin unfractionat ed [Units/volume] in Platelet poor plasma by Chromogenic method [facility] Work Phone: Comment on above: As needed (Lab) for 1 Occurrences starti ng 11/26/2023 As needed (Lab) for 30 Occurrences starting 11/26/2023 End: 10-13-2023 Home O2 eval (desaturation screen) Home O2 eval (desaturation screen) Respiratory Care Routine Once for 1 Occurrences starting 10/13/2023 until 10/13/2023 [facility] Service Area Work Phone: Comment on above: Once for 1 Occurrences starting 10/13/20 23 until 10/13/2023 Lactic acid measurement [facility] Lactic acid measurement [facility] Legionella pneumophi la Ag [Presence] in Urine [facility] Leukocytes [#/volume ] in Blood [facility] Leukocytes [#/volume ] in Blood [facility] Leukocytes [#/volume ] in Blood [facility] End: 11-11-2019 Lipid 1996 panel Lipid Panel Routine Type 1 diabetes mellitus with diabetic neuropathy (HCC) 1 Occurrences starting 11/11/2018 until 11/11/2019 [facility] Comment on above: 1 Occurrences starting 11/11/2018 until 11/11/2019 End: 07-17-2020 Lipid 1996 panel Lipid Panel Lab Routine Pure hypercholesterolemia 1 Occurrences starting 07/17/2019 until 07/17/2020 [facility] Comment on above: 1 Occurrences starting 07/17/2019 until 07/17/2020 End: 02-19-2022 Lipid 1996 panel - Serum or Plasma Lipid Panel Lab Routine Type 1 diabetes mellitus with diabetic polyneuropathy (HCC) 1 Occurrences starting 02/18/2021 until 02/19/2022 [facility] Comment on above: 1 Occurrences starting 02/18/2021 until 02/19/2022 End: 02-18-2025 Lipid 1996 panel - Serum or Plasma Lipid Panel Lab Routine Type 1 diabetes mellitus with diabetic neuropathy (HCC) 1 Occurrences starting 02/18/2024 until 02/18/2025 [facility] Comment on above: 1 Occurrences starting 02/18/2024 until 02/18/2025 End: 07-22-2025 Lipid 1996 panel - Serum or Plasma Lipid Panel Lab Routine Type 1 diabetes mellitus with diabetic neuropathy (HCC) 1 Occurrences starting 07/21/2024 until 07/22/2025 [facility] Comment on above: 1 Occurrences starting 07/21/2024 until 07/22/2025 End: 11-14-2025 Lipid 1996 panel - Serum or Plasma Lipid Panel Lab Routine Type 1 diabetes mellitus with diabetic neuropathy (HCC) Pure hypercholesterolemia 1 Occurrences starting 11/13/2024 until 11/14/2025 [facility] Comment on above: 1 Occurrences starting 11/13/2024 until 11/14/2025 End: 03-13-2026 Lipid 1996 panel - Serum or Plasma Lipid Panel Lab Routine Type 1 diabetes mellitus with diabetic neuropathy (HCC) 1 Occurrences starting 03/12/2025 until 03/13/2026 [facility] Comment on above: 1 Occurrences starting 03/12/2025 until 03/13/2026 End: 02-28-2019 Lipid panel Lipid Panel Routine Type 1 diabetes mellitus with diabetic neuropathy (HCC) 1 Occurrences starting 02/28/2018 until 02/28/2019 [facility] Low density lipoprot ein cholesterol measurement [facility] Magnesium measurement [facility] Mean corpuscular hemoglobin concentration determination [facility] Mean corpuscular hemoglobin concentration determination [facility] Mean corpuscular hemoglobin concentration determination [facility] Mean corpuscular hemoglobin determination [facility] Mean corpuscular hemoglobin determination [facility] Mean corpuscular hemoglobin determination [facility] Measurement of renal function [facility] Measurement of renal function [facility] Measurement of renal function [facility] Natriuretic peptide. B prohormone N-Terminal [Mass/volume] in Serum or Plasma [facility] Neutrophil count [facility] Neutrophil count [facility] Neutrophil count [facility] Neutrophil percent differential count [facility] Neutrophil percent differential count [facility] Neutrophil percent differential count [facility] Noninvasive Ventilation Noninvas frank Ventilation Respiratory Care Routine For RT frequency use only for continuous procedures with task-based reminders at 8a and 8p until discontinued starting 11/26/2023 [facility] Work Phone: Comment on above: For RT frequency use only for continuous procedures with task-based reminders at 8a and 8p until discontinued starting 11/26/2023 Patient Education [facility] Work Phone: Patient referral [facility] Work Phone: Platelets [#/volume] in Blood [facility] Platelets [#/volume] in Blood [facility] Platelets [#/volume] in Blood [facility] Potassium measurement [facility] Potassium measurement [facility] Potassium measurement [facility] Procalcitonin [Mass/volume] in Serum or Plasma by Immunoassay [facility] End: 03-12-2020 Prostate specific Ag [Mass/Vol] PSA, Screen Routine Prostate cancer screening 1 Occurrences starting 03/13/2019 until 03/12/2020 [facility] Comment on above: 1 Occurrences starting 03/13/2019 until 03/12/2020 End: 02-13-2023 Prostate specific Ag [Mass/volume] in Serum or Plasma PSA, Screen Lab Routine Prostate cancer screening 1 Occurrences starting 02/13/2022 until 02/13/2023 [facility] Comment on above: 1 Occurrences starting 02/13/2022 until 02/13/2023 Prothrombin time (PT) Protime-IN R Lab STAT As needed (Lab) for 1 Occurrences starting 11/26/2023 [facility] Work Phone: Comment on above: As needed (Lab) for 1 Occurrences starti ng 11/26/2023 End: 10-29-2018 PSA, Screen PSA, Screen Routine Prostate cancer screening 1 Occurrences starting 10/29/2017 until 10/29/2018 [facility] Work Phone: Red blood cell count [facility] Red blood cell count [facility] Red blood cell count [facility] Red cell distributio n width determination [facility] Red cell distributio n width determination [facility] Red cell distributio n width determination [facility] End: 10-11-2023 Respiratory care eval and treat Respiratory care eval and treat Respiratory Care Routine Once for 1 Occurrences starting 10/11/2023 until 10/11/2023 [facility] Work Phone: Comment on above: Once for 1 Occurrences starting 10/11/20 23 until 10/11/2023 Respiratory pathogen s DNA and RNA panel - Respiratory specimen by ALICE with probe detection [facility] Serum chloride measurement [facility] Serum chloride measurement [facility] Serum chloride measurement [facility] Sodium measurement [facility] Sodium measurement [facility] Sodium measurement [facility] End: 10-21-2024 SPECT Heart perfusion NM Myocardial Perfusion Multiple SPECT Imaging Routine Congestive heart failure, unspecified HF chronicity, unspecified heart failure type (HCC) 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 1 Occurrences starting 10/21/2023 until 10/21/2024 [facility] Work Phone: Comment on above: 1 Occurrences starting 10/21/2023 until 10/21/2024 End: 11-11-2019 T4 free mass conc T4, Free Routine Type 1 diabetes mellitus with diabetic neuropathy (HCC) 1 Occurrences starting 11/11/2018 until 11/11/2019 [facility] Comment on above: 1 Occurrences starting 11/11/2018 until 11/11/2019 End: 02-18-2025 Thyrotropin [Units/volume] in Serum or Plasma TSH Lab Routine Type 1 diabetes mellitus with diabetic neuropathy (HCC) 1 Occurrences starting 02/18/2024 until 02/18/2025 [facility] Comment on above: 1 Occurrences starting 02/18/2024 until 02/18/2025 End: 07-22-2025 Thyrotropin [Units/volume] in Serum or Plasma TSH Lab Routine Type 1 diabetes mellitus with diabetic neuropathy (HCC) 1 Occurrences starting 07/21/2024 until 07/22/2025 [facility] Comment on above: 1 Occurrences starting 07/21/2024 until 07/22/2025 End: 11-14-2025 Thyrotropin [Units/volume] in Serum or Plasma TSH Lab Routine Type 1 diabetes mellitus with diabetic neuropathy (HCC) 1 Occurrences starting 11/13/2024 until 11/14/2025 [facility] Comment on above: 1 Occurrences starting 11/13/2024 until 11/14/2025 Thyrotropin [Units/volume] in Serum or Plasma TSH with Reflex Free T4 Lab Routine 02/12/2025 10:25 AM EDT [facility] Work Phone: End: 03-13-2026 Thyrotropin [Units/volume] in Serum or Plasma TSH Lab Routine Type 1 diabetes mellitus with diabetic neuropathy (HCC) 1 Occurrences starting 03/12/2025 until 03/13/2026 [facility] Comment on above: 1 Occurrences starting 03/12/2025 until 03/13/2026 End: 11-11-2019 Thyrotropin Qn TSH Routine Type 1 diabetes mellitus with diabetic neuropathy (HCC) 1 Occurrences starting 11/11/2018 until 11/11/2019 [facility] Comment on above: 1 Occurrences starting 11/11/2018 until 11/11/2019 End: 02-28-2019 Thyroxine (T4) free T4, Free Routine Type 1 diabetes mellitus with diabetic neuropathy (HCC) 1 Occurrences starting 02/28/2018 until 02/28/2019 [facility] End: 02-18-2025 Thyroxine (T4) free [Mass/volume] in Serum or Plasma T4, Free Lab Routine Type 1 diabetes mellitus with diabetic neuropathy (HCC) 1 Occurrences starting 02/18/2024 until 02/18/2025 [facility] Comment on above: 1 Occurrences starting 02/18/2024 until 02/18/2025 End: 07-22-2025 Thyroxine (T4) free [Mass/volume] in Serum or Plasma T4, Free Lab Routine Type 1 diabetes mellitus with diabetic neuropathy (HCC) 1 Occurrences starting 07/21/2024 until 07/22/2025 [facility] Comment on above: 1 Occurrences starting 07/21/2024 until 07/22/2025 End: 11-14-2025 Thyroxine (T4) free [Mass/volume] in Serum or Plasma T4, Free Lab Routine Type 1 diabetes mellitus with diabetic neuropathy (HCC) 1 Occurrences starting 11/13/2024 until 11/14/2025 [facility] Comment on above: 1 Occurrences starting 11/13/2024 until 11/14/2025 End: 03-13-2026 Thyroxine (T4) free [Mass/volume] in Serum or Plasma T4, Free Lab Routine Type 1 diabetes mellitus with diabetic neuropathy (HCC) 1 Occurrences starting 03/12/2025 until 03/13/2026 [facility] Comment on above: 1 Occurrences starting 03/12/2025 until 03/13/2026 Total cholesterol:HD L ratio measurement [facility] Total protein measurement [facility] Total protein measurement [facility] Total protein measurement [facility] Triglycerides measurement [facility] Troponin T.cardiac [Mass/volume] in Serum or Plasma by High sensitivity method [facility] Troponin T.cardiac [Mass/volume] in Serum or Plasma by High sensitivity method [facility] End: 02-28-2019 TSH TSH Routine Type 1 diabetes mellitus with diabetic neuropathy (HCC) 1 Occurrences starting 02/28/2018 until 02/28/2019 [facility] Urea nitrogen [Mass/volume] in Serum or Plasma [facility] Urea nitrogen [Mass/volume] in Serum or Plasma [facility] Urea nitrogen [Mass/volume] in Serum or Plasma [facility] Urine culture [facility] Urine culture [facility] VLDL cholesterol measurement [facility] Immunizations Immunization Date Immunization Notes Care Provider Nancy amor 07-03-2020 zoster vaccine recombinant Ayanna Albert DO Work Phone: [facility] Work Phone: 04-17-2020 zoster vaccine recombinant Ayanna Albert DO Work Phone: [facility] Work Phone: 03-31-2019 pneumococcal polysaccharide vaccine, 23 valent Ayanna Albert DO Work Phone: [facility] Work Phone: 01-31-2018 pneumococcal conjuga te vaccine, 13 valent Ayanna Albert DO Work Phone: [facility] Work Phone: 11-10-2016 [facility]: Payers Date Payer Category Payer Self-pay [id number] 2021 Medicare (Managed Care) [employer] [id number] 2021 Medicare PPO [employer] MEDICARE P JAYDON (PPO) [id number] 2021 Private Health Insurance [id number] 2015 Medicare [id number] 2015 Medicare [id number] 2015 Medicare [id number] 2015 Medicare [id number] [id number] 1943 Unknown [id number] 2.16.840.1.072891.3.579.2. 9 1943 Unknown [id number] 2.16.840.1.923105.3.579.2. 1068 1943 Unknown [id number] 2.16.840.1.599181.3.579.2. 1068 1943 Unknown [id number] 2.16.840.1.372812.3.579.2. 1068 1943 Unknown [id number] 2.16.840.1.257900.3.579.2. 1068 1943 Unknown [id number] 2.16.840.1.502512.3.579.2. 1068 1943 Unknown [id number] 2.16.840.1.989038.3.579.2. 1068 1943 Unknown [id number] 2.16.840.1.817588.3.579.2. 1068 1943 Unknown [id number] 2.16.840.1.904486.3.579.2. 1068 1943 Unknown [id number] 2.16.840.1.329432.3.579.2. 1068 1943 Unknown [id number] 2.16.840.1.312675.3.579.2. 1068 1943 Unknown [id number] 2.16.840.1.844585.3.579.2. 356 1943 Unknown [id number] 2.16.840.1.540025.3.579.2. 1244 1943 Unknown [id number] 2.16.840.1.910042.3.579.2. 1244 1943 Unknown [id number] 2.16.840.1.404631.3.579.2. 1244 1943 Unknown [id number] 2.16.840.1.307896.3.579.2. 1943 Unknown [id number] 2.16.840.1.211896.3.579.2. 90 1943 Unknown [id number] 2.16.840.1.970382.3.579.2. 1243 1943 Unknown [id number] 2.16.840.1.560440.3.579.2. 903 1943 Unknown [id number] 2.16.840.1.834227.3.579.2. 903 1943 Unknown [id number] 2.16.840.1.615780.3.579.2. 1943 Unknown [id number] 2.16.840.1.830795.3.579.2. 903 1943 Unknown [id number] 2.16.840.1.881228.3.579.2. 1943 Unknown [id number] 2.16.840.1.205169.3.579.2. 903 1943 Unknown [id number] 2.840.1.237767.3.579.2. 1943 Unknown [id number] 2.16.840.1.255641.3.579.2. 90 1943 Unknown [id number] 2.16.840.1.544360.3.579.2. 1943 Unknown [id number] 2.16.840.1.955903.3.579.2. 903 1943 Unknown [id number] 2.16.840.1.195946.3.579.2. 90 1943 Unknown [id number] 2.16.840.1.314240.3.579.2. 903 1943 Unknown [id number] 2.16.840.1.864190.3.579.2. 903 1943 Unknown [id number] 2.16.840.1.441395.3.579.2. 903 1943 Unknown [id number] 2.16.840.1.428852.3.579.2. 1244 1943 Unknown [id number] 2.840.1.375040.3.579.2. 1244 1943 Unknown [id number] 2.16840.1.370352.3.579.2. 1244 Unknown [employer] Unknown [id number] 2.16840.1.388993.3.579.2. 462 Unknown [id number] 2.840.1.449720.3.579.2. 462 Unknown [id number] 2.840.1.891216.3.579.2. 462 Unknown [id number] 2.840.1.689763.3.579.2. 462 Unknown [id number] 2.840.1.446542.3.579.2. 462 Unknown [id number] 2.840.1.596992.3.579.2. 462 Unknown [id number] 2.840.1.074271.3.579.2. 462 Unknown [id number] 2.840.1.200853.3.579.2. 462 Unknown [id number] 2.840.1.217874.3.579.2. 462 Unknown [id number] 2.840.1.680107.3.579.2. 462 Unknown [id number] 2.840.1.057181.3.579.2. 462 Unknown [id number] 2.840.1.443521.3.579.2. 462 Unknown [id number] 2.16840.1.516595.3.579.2. 462 Unknown [id number] 2.16840.1.916446.3.579.2. 462 Unknown [id number] 2.16840.1.118121.3.579.2. 462 Unknown [id number] 2.840.1.661085.3.579.2. 462 Unknown [id number] 2.16.840.1.829731.3.579.2. 462 Unknown [id number] 2.16.840.1.601380.3.579.2. 462 Unknown [id number] 2.16.840.1.408410.3.579.2. 462 Unknown [id number] 2.16.840.1.476401.3.579.2. 462 Unknown [id number] 2.16.840.1.204297.3.579.2. 462 Unknown [id number] 2.840.1.011918.3.579.2. 462 Unknown [id number] 2.840.1.190653.3.579.2. 462 Unknown [id number] 2.840.1.020491.3.579.2. 462 Unknown [id number] 2.840.1.288359.3.579.2. 462 Unknown [id number] 2.840.1.790577.3.579.2. 462 Unknown [id number] 2.840.1.647531.3.579.2. 462 Unknown [id number] 2.840.1.210272.3.579.2. 462 Unknown [id number] 2.840.1.111518.3.579.2. 462 Unknown [id number] 2.840.1.380787.3.579.2. 462 Unknown [id number] 2.840.1.632198.3.579.2. 462 Unknown [id number] 2.840.1.945074.3.579.2. 462 Unknown [id number] 2.840.1.811493.3.579.2. 462 Unknown [id number] Unknown [id number] Unknown [id number] 462 Unknown [id number] 462 Unknown [id number] 462 Unknown [id number] 462 Unknown [id number] 462 Unknown [id number] 462 Social History Date Type Detail Facility Start: 02-28-2018 End: 05-07-2025 Tobacco smoking status WVIS Current every day smoker [facility] Work Phone: Start: 02-28-2018 End: 10-11-2023 Cigarettes smoked current (pack per day) - Reported [facility] Start: 1945 Sex Assigned At Not on file [facility] Work Phone: Start: 07-17-2019 End: 03-12-2025 Alcohol intake Current non-drinker of alcohol (finding) [facility] Start: 06-18-2020 End: 05-01-2025 Tobacco use and exposure Never used [facility] Start: 02-03-2022 End: 02-26-2025 Exposure to SARS-CoV-2 (event) Not sure [facility] Start: 11-01-1965 History of tobacco use Cigarette Smoker [facility] Start: 10-19-2022 End: 10-11-2023 Tobacco use panel [facility] Start: 08-25-2023 End: 05-01-2025 Alcohol intake Lifetime non-drinker (finding) [facility] Work Phone: How hard is it for y ou to pay for the very basics like food, housing, medical care, and heating Not hard at all [facility] In the past 12 month s, was there a time when you were not able to pay the mortgage or rent on time? No [facility] Work Phone: Start: 1945 Sex Assigned At Male [facility] Start: 10-11-2023 Gender identity Identifies as male gender (finding) [facility] Work Phone: Start: 10-11-2023 Sexual orientation Heterosexual (finding) [facility] Work Phone: Start: 08-05-2021 Tobacco smoking status NHIS Unknown if ever smoked [facility] (I/We) worried wheth er (my/our) food would run out before (I/we) got money to buy more. Never true [facility] Start: 02-09-2025 Sex Male (finding) [facility] Start: 05-01-2025 Tobacco smoking status NHIS Ex-smoker [facility] History of tobacco use Current smoker [facility] Work Phone: Medical Equipment Procedure Code Equipment Code Equipment Origin al Text Equipment Identifier Dates [id number] Start: 08-12-2015 End: 03-13-2019 USE DIRECTED FOUR TIMES A DAY FOR INSULIN INJECTION [id number] Start: 09-12-2018 E10.9 Use as directed 4 times per day. [id number] Start: 06-10-2017 use as directed 4 times per day for insulin injection. [id number] Start: 06-17-2017 use as directed 4 times per day for insulin injection. [id number] Start: 05-19-2016 End: 06-17-2017 Use as directed 4 times per day. Dx E10.9 Patient with type 1 DM on insulin with hypoglycemia. Needs to check BG QID; takes insulin QID . [id number] Start: 03-13-2019 Use as directed 4x daily DX code E10.65 . [id number] Start: 10-20-2019 Use as directed 4 times per day. Dx E10.9 Patient with type 1 DM on insulin with hypoglycemia. Needs to check BG QID; takes insulin QID . [id number] Start: 03-15-2020 End: 02-18-2021 Use as directed 4x daily DX code E10.65 . [id number] Start: 10-07-2020 End: 10-08-2021 Use as directed 4 times per day. Dx E10.9 Patient with type 1 DM on insulin with hypoglycemia. Needs to check BG QID; takes insulin QID . [id number] Start: 02-18-2021 End: 02-13-2022 Use as directed 4x daily DX code E10.65 . [id number] Start: 10-09-2021 End: 12-31-2022 Use as directed 4 times per day. Dx E10.9 Patient with type 1 DM on insulin with hypoglycemia. Needs to check BG QID; takes insulin QID . [id number] Start: 02-13-2022 End: 02-19-2023 Use as directed 4x daily DX code E10.65 . [id number] Start: 12-31-2022 Use as directed 4 times per day. Dx E10.9 Patient with type 1 DM on insulin with hypoglycemia. Needs to check BG QID; takes insulin QID . [id number] Start: 02-19-2023 End: 03-06-2024 BD Jolynn 2nd Gen Pen Needle 32 gauge x 5/32 needle [id number] Start: 07-01-2023 Use as directed 4 times per day. Dx E10.9 Patient with type 1 DM on insulin with hypoglycemia. Needs to check BG QID; takes insulin QID . [id number] Start: 02-19-2023 Use as directed 4x daily Dx code E10.65 . [id number] Start: 12-01-2023 End: 12-08-2024 TEST BLOOD GLUCO SE FOUR TIMES DAILY E10.65 . [id number] Start: 03-06-2024 End: 04-16-2025 Use as directed 4x daily Dx code E10.65 . [id number] Start: 12-08-2024 Blood Sugar Diagnostic (Contour Next Test Strips) strip Start: 09-12-2024 Blood Sugar Diagnostic (Contour Next Test Strips) strip Start: 09-12-2024 Blood Sugar Diagnostic (Contour Next Test Strips) strip Start: 09-12-2024 TEST BLOOD GLUCO SE FOUR TIMES DAILY E10.65 . [id number] Start: 04-17-2025 Goals Date Patient Goal Desired Activity /State Functional Status Date Assessment Result Facility 05-09-2025 Functional status Ambulates [facility] Work Phone: 04-22-2025 Functional status Ambulates [facility] Work Phone: 04-21-2025 Functional status Well [facility] Work Phone: 04-10-2025 Functional status Chair [facility] Work Phone: Mental Status Date Assessment Result Facility 05-09-2025 Cognitive function Voice/Name [facility] Work Phone: 04-22-2025 Cognitive function Voice/Name [facility] Work Phone: 04-10-2025 Cognitive function Voice/Name [facility] Work Phone: Clinical Notes 02-18-2021 to 05-09-2025 Note Date & Type Note Facility 05-09-2025 Discharge summary Note Date/Time May 09, 2025 3:56p m [facility] Medical Records Department [address] [place] [address] Discharge Summary 05/09/25 1542 MR#: [id number] Acct: [id number] Name: ENOC ARMANDO Rep #:[id number] : 1945 79 From: Malkia Fonseca DO PCP: Dr. Ryley Jeter MD Status:ADM IN Location: [place] [address] Providers Date of Admission: 05/05/25 Primary Care Physician: Ryley Jeter MD Reason For Visit: AE CHF, AE COPD, PNA, LEUKOCYTOSIS, LACTIC Diagnosis Discharge Diagnosis (1) Acute on chronic HFrEF (heart failure with reduced ejection fraction): Status: Chronic Code(s): I50.23 - Acute on chronic systolic (congestive) heart failure Plan: EF 40% Creatinine up from 3.03 from 2.46. DC IV bumetanide change back to PO furosemide. Increased respiratory distress. Will add BDs and methylprednisolone. Suspect pt has underlying COPD/asthma. (2) MADONNA (acute kidney injury): Status: Acute Code(s): N17.9 - Acute kidney failure, unspecified Plan: Improving. Creatinine up 2.46 to 3.03 down to 2.91 Likely 2/2 overdiuresis. Plan Anemia: Hg 7.6. B12, TSH WNL. Iron low. Will given dose of IV iron. Troponin elevation: 113 to 141. Type 2 demand ischemia from CHF, but also skewedgiven CKD CKD 4: creatinine up now. Continue to monitor. BPH: tamsulosin, finasteride DM2: glargine SSI. HANNAH: BiPAP. VTE prophylaxis: SQ heparin. Disposition: TBD. check home oxygen evaluation. Medications at Discharge Home Medications insulin glargine 100 unit/mL (3 mL) subcutaneous pen (Lantus Solostar U-100 Insulin) 15 unit subcut QPM diabetes 08/05/21 insulin lispro 100 unit/mL subcutaneous pen 0 unit subcut TID SLIDING SCALE 08/05/21 tamsulosin 0.4 mg capsule (Flomax) 0.4 mg PO DAILY urination 08/05/21 ezetimibe 10 mg tablet 10 mg PO DAILY cholesterol 04/06/24 blood sugar diagnostic (Contour Next Test Strips) 09/12/24 hydralazine 50 mg tablet 50 mg PO Q8H BP 04/03/25 albuterol sulfate 2.5 mg/3 mL (0.083 %) solution for nebulization 2.5 mg (3 mL) inhalation Q2H PRN PRN SOB &/OR WHEEZING 30 days #180 mL 04/22/25 albuterol sulfate 90 mcg/actuation breath activated powder inhaler (ProAir RespiClick) 2 inh inhalation Q6H PRN shortness of breath or wheezing #1 ea 04/22/25 carvedilol 25 mg tablet 25 mg PO BIDCM blood pressure #60 tabs 04/22/25 furosemide 40 mg tablet 40 mg PO BIDLX water pill #60 tabs 04/22/25 isosorbide mononitrate 30 mg tablet,extended release 24 hr 30 mg PO DAILY BP #30tabs 04/22/25 nebulizer and compressor #1 ea 04/22/25 finasteride 5 mg tablet 5 mg PO DAILY prostate 05/05/25 prednisone 20 mg tablet 40 mg (2 x 20 mg) PO DAILY #10 tabs 05/09/25 Hospital Course Operations None Procedures None Summary of Care Provided Minutes Spent on Discharge: 35 Hospital Course: This is an 79-year-old male presents with shortness of breath. Found to have was concerning for CHF exacerbation but did develop acute kidney injury despite being on the IV bumetanide. Patient was converted back to his normal dosing of furosemide and his kidney function has since improved. On the eighth, patient became extremely acutely short of breath and was placed back on BiPAP. Patient has a wheezes and was started on steroids. He subsequently has done better. Patient does have a very extensive smoking history, about 60 years. Never been formally evaluated for COPD or asthma. Though Tolly concerning he does have underlying COPD. Did recommend to the patient and his that he follow-up with pulmonology to have a pulmonary function test. His inquired about having a BiPAP at home. Said that he would need to qualify for that as outpatient to be evaluated by pulmonary and have likely an outpatient sleep study. 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 Patient has a follow-up appointment with pulmonary medicine on of this month. Weight / BMI Weight Weight: 67.4 kg Body Mass Index (BMI) 23.3 ABG / Lab / Microbiology Data 05/09/25 05:27 05/09/25 05:27 Laboratory: Laboratory Results - last 24 hr 05/08/25 05:35: RBC Folate Hemolysate 444.0, RBC Folate 1552, Hematocrit 28.6 L 05/08/25 16:21: POC Glucose 247 H 05/08/25 19:54: POC Glucose 315 H 05/09/25 05:27: WBC 6.3, RBC 2.59 L, Hgb 7.6 L, Hct 23.8 L, MCV 91.9, MCH 29.3, MCHC 31.9 L, RDW Std Deviation 47.9 H, RDW Coeff of Humaira 14.3, Plt Count 153, MPV11.5, Immature Gran % (Auto) 0.600, Neut % (Auto) 93.3 H, Lymph % (Auto) 4.3 L, [place] % (Auto) 1.6, Eos % (Auto) 0.0, Baso % (Auto) 0.2, Absolute Neuts (auto) 5.9, Absolute Lymphs (auto) 0.27 L, Nucleated RBC % 0, Sodium 140, Potassium 4.1, Chloride 103, Carbon Dioxide 22.0, Anion Gap 15, BUN 80 H, Creatinine 2.87 H, Estim Creat Clear Calc 18.87 L, Est GFR (MDRD) Non-Af 21 L, BUN/Creatinine Ratio 27.8 H, Glucose 336 H, Calcium 8.3 05/09/25 06:18: POC Glucose 309 H 05/09/25 12:29: POC Glucose 414 H Microbiology: Microbiology 05/05/25 19:52 Blood Culture (Wb) - Anticubital Left Blood Culture - Preliminary No growth in 48 hours. 05/05/25 19:51 Blood Culture (Wb) - Anticubital Right Blood Culture - Preliminary No growth in 48 hours. 05/05/25 20:50 Urine, Catheterized Urine Culture - Final Mixed Gram Positive Organisms 05/05/25 20:50 Urine, Clean Catch Legionella Antigen - Final 05/05/25 20:50 Urine, Clean Catch Streptococcus pneumoniae Antigen (M - Final 05/05/25 23:20 Mucosa - Nose Respiratory Panel (PCR) - Final 05/05/25 23:20 Mucosa - Nasopharyngeal Coronavirus COVID-19 PCR - Final D/C Instructions Discharge Diet: Low fat / Low cholesterol and - (1.5 liters (50 ounces or 6.5 cups) fluid per day. ) DC O2, CPAP, BIPAP Needs Home O2 Discharge instructions: Yes Type of respiratory needs?: Oxygen Oxygen frequency: Continuous Continuous oxygen liters per minute: 3 DC home with Oxygen: Yes Home O2 [...] Simvastatin 80mg Discharge Plan Admission Admit Date/Time: 05/05/25 22:01 Primary Reason for Your Visit: Shortness of breath. Attending Provider: Malika Fonseca Primary Care Provider: Ryley Jeter Consulting Providers: Nancy Rizzo; Carlita Raygoza Instructions Additional Instructions / Restrictions: You had shortness of breath. Initially felt to be heart failure exacerbation but it seems more likely he may have some underlying lung disease such as COPD (emphysema) or asthma. Will have you on steroids to help with this episode. Asper the last admission that you had follow-up with pulmonology. He has been appointment on the of this month. They will determine what additional testing such as pulmonary function test, sleep study would be indicated. Discharge Orders/Prescriptions Prescriptions: New prednisone 20 mg tablet 40 mg PO DAILY Qty: 10 0RF Continued ezetimibe 10 mg tablet 10 mg PO DAILY tamsulosin [Flomax] 0.4 mg Capsule 0.4 mg PO DAILY insulin lispro 100 unit/mL Insulin Pen 0 unit SUBCUT TID insulin glargine [Lantus Solostar U-100 Insulin] 100 unit/mL (3 mL) Insulin Pen 15 unit SUBCUT QPM hydralazine 50 mg tablet 50 mg PO Q8H (DME) Contour Next Test Strips Strip MISCELLANEOUS 4X/DAY albuterol sulfate 2.5 mg /3 mL (0.083 [...] 30 mg PO DAILY Qty: 30 0RF ProAir RespiClick 90 mcg/actuation aerosol powdr breath activated 2 inh inhalation Q6H PRN (Reason: shortness of breath or wheezing) Qty: 1 0RF (DME) nebulizer and compressor Device See Rx Instructions .Route Qty: 1 0RF Rx Instructions: As directed finasteride 5 mg tablet 5 mg PO DAILY Referrals / Follow Up: [facility] [Provider Group] - 05/24/25 10:15 am Ryley Jeter MD [Primary Care Provider] - Within 2 Weeks Disposition Disposition (needs filled in before D/C Order can be placed): Home, Self Care Charges/Coding Visit Charges Inpatient E&M: 02307 Disch Hosp >30min 05/09/25 1556 <Electronically signed by Malika Fonseca DO> Cosigner Signature (if applicable): CC: Dr. Ryley Jeter MD; Dr. Malika Fonseca DO~ Signed [facility] Work Phone: 1(378) 423-565407-09-2025 Progress note Author Malika Fonseca [facility] Note Date/Time May 09, 2025 2:41p m [facility] Medical Records Department [address] [place] [address] Progress Note - Hospitalist 05/09/25 0753 MR#: [id number] Acct: [id number] Name: EONC ARMANDO Rep #:[id number] : 1945 79 From: Malika Fonseca DO PCP: Dr. Ryley Jeter MD Status:ADM IN Location: [place] [address] Reason for Visit Reason for Visit: Diagnoses Elevated white blood cell count, unspecified (05/05/25) Type 2 diabetes mellitus without complications (05/05/25) Pulmonary hypertension, unspecified (05/05/25) Nonrheumatic mitral (valve) insufficiency (05/05/25) Acute on chronic systolic (congestive) heart failure (05/05/25) Acute on chronic combined systolic (congestive) and diastolic (congestive) heartfailure (05/05/25) Pneumonia, unspecified organism (05/05/25) Chronic obstructive pulmonary disease with (acute) exacerbation (05/05/25) Acute and chronic respiratory failure with hypoxia (05/05/25) Acute kidney failure, unspecified (05/05/25) Chronic kidney disease, stage 4 (severe) (05/05/25) Other specified abnormal findings of blood chemistry (05/05/25) 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 (05/05/25) Subjective Subjective feeling better Objective Data Objective Data Vital Signs: Vital Signs Temp Pulse Resp BP Pulse Ox O2 Del Method O2 Flow Rate 36.5 C L 69 16 170/71 H 97 Nasal Cannula 3 05/09/25 03:45 05/09/25 05:31 05/09/25 03:45 05/09/25 05:31 05/09/25 03:45 05/09/25 03:45 05/09/25 03:45 FiO2 30 05/06/25 06:47 Oxygen Flow Rate (L/min) 3 Oxygen Delivery Method Nasal Cannula Weight: 67.4 kg Body Mass Index (BMI) 23.3 Intake & Output: Intake and Output for Last 24 Hours 05/07/25 05/08/25 05/09/25 23:59 23:59 23:59 Intake Total 820 / 820 1230 / 1230 170 / 170 Output Total 1650 / 1650 1575 / 1925 550 / 550 Balance -830 / -830 -345 / -695 -380 / -380 Lab / Micro Data 05/09/25 05:27 05/09/25 05:27 Labs: Laboratory Results - last 24 hr 05/08/25 11:20: POC Glucose 227 H 05/08/25 16:21: POC Glucose 247 H 05/08/25 19:54: POC Glucose 315 H 05/09/25 05:27: WBC 6.3, RBC 2.59 L, Hgb 7.6 L, Hct 23.8 L, MCV 91.9, MCH 29.3, MCHC 31.9 L, RDW Std Deviation 47.9 H, RDW Coeff of Humaira 14.3, Plt Count 153, MPV11.5, Immature Gran % (Auto) 0.600, Neut % (Auto) 93.3 H, Lymph % (Auto) 4.3 L, [place] % (Auto) 1.6, Eos % (Auto) 0.0, Baso % (Auto) 0.2, Absolute Neuts (auto) 5.9, Absolute Lymphs (auto) 0.27 L, Nucleated RBC % 0, Sodium 140, Potassium 4.1, Chloride 103, Carbon Dioxide 22.0, Anion Gap 15, BUN 80 H, Creatinine 2.87 H, Estim Creat Clear Calc 18.87 L, Est GFR (MDRD) Non-Af 21 L, BUN/Creatinine Ratio 27.8 H, Glucose 336 H, Calcium 8.3 05/09/25 06:18: POC Glucose 309 H Micro: Microbiology 05/05/25 19:52 Blood Culture (Wb) - Anticubital Left Blood Culture - Preliminary No growth in 48 hours. 05/05/25 19:51 Blood Culture (Wb) - Anticubital Right Blood Culture - Preliminary No growth in 48 hours. 05/05/25 20:50 Urine, Catheterized Urine Culture - Final Mixed Gram Positive Organisms 05/05/25 20:50 Urine, Clean Catch Legionella Antigen - Final 05/05/25 20:50 Urine, Clean Catch Streptococcus pneumoniae Antigen (M - Final 05/05/25 23:20 Mucosa - Nose Respiratory Panel (PCR) - Final 05/05/25 23:20 Mucosa - Nasopharyngeal Coronavirus COVID-19 PCR - Final Physical Exam Const alert and no apparent distress HEENT head/scalp atraumatic and moist oral mucous membranes Resp normal respiratory effort, no retractions, no use of accessory muscles and clearto auscultation bilaterally Cardio regular rate, regular rhythm, S1 normal heart sound and S2 normal heart sound GI normal to inspection, nondistended, normoactive bowel sounds, soft to palpation,non-tender and non-distended Assessment & Plan Assessment/Plan (1) Acute on chronic HFrEF (heart failure with reduced ejection fraction): PLAN: EF 40% Creatinine up from 3.03 from 2.46. DC IV bumetanide change back to PO furosemide. Increased respiratory distress. Will add BDs and methylprednisolone. Suspect pt has underlying COPD/asthma. (2) MADONNA (acute kidney injury): PLAN: Improving. Creatinine up 2.46 to 3.03 down to 2.91 Likely 2/2 overdiuresis. PLAN: Plan Anemia: Hg 7.6. B12, TSH WNL. Iron low. Will given dose of IV iron. Troponin elevation: 113 to 141. Type 2 demand ischemia from CHF, but also skewedgiven CKD CKD 4: creatinine up now. Continue to monitor. BPH: tamsulosin, finasteride DM2: glargine SSI. HANNAH: BiPAP. VTE prophylaxis: SQ heparin. Disposition: TBD. check home oxygen evaluation. Charges/Coding Visit Charges Inpatient E&M: 98623 Subs Hosp L2 05/09/25 7287 <Electronically signed by Malika Fonseca DO> Cosigner Signature (if applicable): CC: ~ Signed [facility] Work Phone: 1(369) 747-897907-09-2025 [facility]07-08-2025 Progress note Author Malika Fonseca [facility] Note Date/Time May 08, 2025 2:36p m [facility] Medical Records Department [address] [place] [address] Progress Note - Hospitalist 05/08/25811 MR#: [id number] Acct: [id number] Name: ENOC ARMANDO Rep #:[id number] : 1945 79 From: Malika Fonseca DO PCP: Dr. Ryley Jeter MD Status:ADM IN Location: [place] [address] Reason for Visit Reason for Visit: Diagnoses Elevated white blood cell count, unspecified (05/05/25) Type 2 diabetes mellitus without complications (05/05/25) Pulmonary hypertension, unspecified (05/05/25) Nonrheumatic mitral (valve) insufficiency (05/05/25) Acute on chronic systolic (congestive) heart failure (05/05/25) Acute on chronic combined systolic (congestive) and diastolic (congestive) heartfailure (05/05/25) Pneumonia, unspecified organism (05/05/25) Chronic obstructive pulmonary disease with (acute) exacerbation (05/05/25) Acute and chronic respiratory failure with hypoxia (05/05/25) Chronic kidney disease, stage 4 (severe) (05/05/25) Other specified abnormal findings of blood chemistry (05/05/25) 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 Objective Data Objective Data Vital Signs: Vital Signs Temp Pulse Resp BP Pulse Ox O2 Del Method O2 Flow Rate 36.5 C L 77 20 H 171/84 H 98 Bi-pap 45 05/08/25 06:04 05/08/25 06:04 05/08/25 06:04 05/08/25 06:04 05/08/25 06:04 05/08/25 06:04 05/08/25 06:04 FiO2 30 05/06/25 06:47 Oxygen Flow Rate (L/min) 45 Oxygen Delivery Method Bi-pap Weight: 74.4 kg Body Mass Index (BMI) 25.7 Intake & Output: Intake and Output for Last 24 Hours 05/06/25 05/07/25 05/08/25 23:59 23:59 23:59 Intake Total 1230 / 1410 820 / 820 50 / 50 Output Total 1100 / 1500 1650 / 1650 525 / 525 Balance 130 / -90 -830 / -830 -475 / -475 Lab / Micro Data 05/08/25 05:35 05/08/25 05:35 Labs: Laboratory Results - last 24 hr 05/07/25 10:57: POC Glucose 315 H 05/07/25 16:20: POC Glucose 342 H 05/07/25 20:39: POC Glucose 344 H 05/08/25 05:35: WBC 11.8 H, RBC 2.95 L, Hgb 8.6 L, Hct 27.0 L, MCV 91.5, MCH 29.2, MCHC 31.9 L, RDW Std Deviation 47.8 H, RDW Coeff of Humaira 14.3, Plt Count 193, MPV 11.0, Immature Gran % (Auto) 0.700, Neut % (Auto) 85.1 H, Lymph % (Auto) 8.7 L, [place] % (Auto) 4.6, Eos % (Auto) 0.6, Baso % (Auto) 0.3, Absolute Neuts (auto) 10.0 H, Absolute Lymphs (auto) 1.03, Nucleated RBC % 0, Sodium 140,Potassium 4.5, Chloride 103, Carbon Dioxide 23.2, Anion Gap 14, BUN 85 H, Creatinine 2.91 H, Estim Creat Clear Calc 18.61 L, Est GFR (MDRD) Non-Af 21 L, BUN/Creatinine Ratio 29.0 H, Glucose 247 H, Calcium 8.6, Iron 22 L, TIBC 309, Iron Saturation 7.0 L, Unsaturated IBC 287, Ferritin 92, Vitamin B12 670, TSH 0.979 05/08/25 06:12: POC Glucose 241 H Micro: Microbiology 05/05/25 19:52 Blood Culture (Wb) - Anticubital Left Blood Culture - Preliminary No growth in 48 hours. 05/05/25 19:51 Blood Culture (Wb) - Anticubital Right Blood Culture - Preliminary No growth in 48 hours. 05/05/25 20:50 Urine, Catheterized Urine Culture - Final Mixed Gram Positive Organisms 05/05/25 20:50 Urine, Clean Catch Legionella Antigen - Final 05/05/25 20:50 Urine, Clean Catch Streptococcus pneumoniae Antigen (M - Final 05/05/25 23:20 Mucosa - Nose Respiratory Panel (PCR) - Final 05/05/25 23:20 Mucosa - Nasopharyngeal Coronavirus COVID-19 PCR - Final Physical Exam Const alert Constitutional Narrative: on BiPAP. HEENT head/scalp atraumatic and moist oral mucous membranes Resp normal respiratory effort Auscultation: wheezes Cardio regular rate, regular rhythm, S1 normal heart sound and S2 normal heart sound GI normal to inspection, nondistended, normoactive bowel sounds, soft to palpation,non-tender and non-distended Extremity normal to inspection Neuro Sensorium / Orientation: awake and alert Psych affect normal Assessment & Plan Assessment/Plan (1) Acute on chronic HFrEF (heart failure with reduced ejection fraction): PLAN: EF 40% Creatinine up from 3.03 from 2.46. DC IV bumetanide change back to PO furosemide. Increased respiratory distress. Will add BDs and methylprednisolone. (2) MADONNA (acute kidney injury): PLAN: Improved. Creatinine up 2.46 to 3.03 down to 2.91 Likely 2/2 overdiuresis. PLAN: Plan Anemia: Hg 7.2. B12, TSH WNL. Iron low. Will given dose of IV iron. Troponin elevation: 113 to 141. Type 2 demand ischemia from CHF, but also skewedgiven CKD CKD 4: creatinine up now. Continue to monitor. BPH: tamsulosin, finasteride DM2: glargine SSI. HANNAH: BiPAP. VTE prophylaxis: SQ heparin. Disposition: TBD. DW patient's at bedside. Charges/Coding Visit Charges Inpatient E&M: 47870 Subs Hosp L2 05/08/25 1436 <Electronically signed by Malika Fonseca DO> Cosigner Signature (if applicable): CC: ~ Signed [facility] Work Phone: 1(378) 700-809107-07-2025 Progress note Author Malika Fonseca [facility] Note Date/Time May 07, 2025 4:20p m [facility] Medical Records Department [address] [place] [address] [place] [address] Progress Note - Hospitalist 07/07/25 0907 MR#: [id number] Acct: [id number] Name: ENOC ARMANDO Rep #:[id number] : 1945 79 From: Malika Fonseca DO PCP: Dr. Ryley Jeter MD Status:ADM IN Location: [place] [address] Reason for Visit Reason for Visit: Diagnoses Elevated white blood cell count, unspecified (05/05/25) Type 2 diabetes mellitus without complications (05/05/25) Pulmonary hypertension, unspecified (05/05/25) Nonrheumatic mitral (valve) insufficiency (05/05/25) Acute on chronic systolic (congestive) heart failure (05/05/25) Acute on chronic combined systolic (congestive) and diastolic (congestive) heartfailure (05/05/25) Pneumonia, unspecified organism (05/05/25) Chronic obstructive pulmonary disease with (acute) exacerbation (05/05/25) Acute and chronic respiratory failure with hypoxia (05/05/25) Chronic kidney disease, stage 4 (severe) (05/05/25) Other specified abnormal findings of blood chemistry (05/05/25) 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 No LE edema. Objective Data Objective Data Vital Signs: Vital Signs Temp Pulse Resp BP Pulse Ox O2 Del Method O2 Flow Rate 36.4 C L 60 14 113/61 97 Nasal Cannula 2 05/07/25 08:44 05/07/25 08:44 05/07/25 08:44 05/07/25 08:44 05/07/25 08:44 05/07/25 08:44 05/07/25 08:44 FiO2 30 05/06/25 06:47 Oxygen Flow Rate (L/min) 2 Oxygen Delivery Method Nasal Cannula Weight: 73.9 kg Body Mass Index (BMI) 25.4 Intake & Output: Intake and Output for Last 24 Hours 05/05/25 05/06/25 05/07/25 23:59 23:59 23:59 Intake Total 900 / 900 1230 / 1410 230 / 230 Output Total 1100 / 1500 600 / 600 Balance 900 / 900 130 / -90 -370 / -370 Lab / Micro Data 05/07/25 04:44 05/07/25 04:44 Labs: Laboratory Results - last 24 hr 05/06/25 12:07: POC Glucose 256 H 05/06/25 17:01: POC Glucose 421 H 05/06/25 21:09: POC Glucose 444 H 05/07/25 04:44: WBC 8.6, RBC 2.43 L, Hgb 7.2 L, Hct 22.4 L, MCV 92.2, MCH 29.6, MCHC 32.1, RDW Std Deviation 48.5 H, RDW Coeff of Humaira 14.5, Plt Count 154, MPV 11.4, Immature Gran % (Auto) 0.700, Neut % (Auto) 79.5 H, Lymph % (Auto) 13.1 L,[place] % (Auto) 6.5, Eos % (Auto) 0.0, Baso % (Auto) 0.2, Absolute Neuts (auto) 6.9, Absolute Lymphs (auto) 1.13, Nucleated RBC % 0, PT 14.9, INR 1.1, Sodium 136, Potassium 5.0, Chloride 100, Carbon Dioxide 22.9, Anion Gap 14, BUN 92 H, Creatinine 3.03 H, Estim Creat Clear Calc 17.88 L, Est GFR (MDRD) Non-Af 20 L, BUN/Creatinine Ratio 30.4 H, Glucose 407 H, Calcium 8.0, Phosphorus 6.1 H, Magnesium 2.6 H, Total Bilirubin 0.46, AST 34, ALT 35, Alkaline Phosphatase 67, Total Protein 5.2 L, Albumin 3.2 L, Globulin 2.0 L, Albumin/Globulin Ratio 1.6 05/07/25 06:26: POC Glucose 333 H Micro: Microbiology 05/05/25 20:50 Urine, Catheterized Urine Culture - Preliminary Mixed Gram Positive Organisms 05/05/25 20:50 Urine, Clean Catch Legionella Antigen - Final 05/05/25 20:50 Urine, Clean Catch Streptococcus pneumoniae Antigen (M - Final 05/05/25 23:20 Mucosa - Nose Respiratory Panel (PCR) - Final 05/05/25 23:20 Mucosa - Nasopharyngeal Coronavirus COVID-19 PCR - Final Physical Exam Const alert and no apparent distress HEENT head/scalp atraumatic and moist oral mucous membranes Resp normal respiratory effort and no retractions Resp Narrative: diminished bilaterally. Cardio regular rate, regular rhythm, S1 normal heart sound and S2 normal heart sound GI normal to inspection, nondistended, normoactive bowel sounds, soft to palpation,non-tender and non-distended Neuro Sensorium / Orientation: awake and alert Assessment & Plan Assessment/Plan (1) Acute on chronic HFrEF (heart failure with reduced ejection fraction): PLAN: EF 40% Creatinine up from 3.03 from 2.46. DC IV bumetanide change back to PO furosemide. PLAN: Plan Anemia: Hg 7.2. Monitor. Check TSH, B12, Folate, Iron, TIBC, Ferritin. Troponin elevation: 113 to 141. Type 2 demand ischemia from CHF, but also skewedgiven CKD CKD 4: creatinine up now. Continue to monitor. BPH: tamsulosin, finasteride DM2: glargineSSI. VTE prophylaxis: SQ heparin. Disposition: TBD. Hopefully ready in 1-2 days. Charges/Coding Visit Charges Inpatient E&M: 39649 Subs Hosp L2 05/07/25 1620 <Electronically signed by Malika Fonseca DO> Cosigner Signature (if applicable): CC: ~ Signed [facility] Work Phone: 1(184) 986-794607-06-2025 Progress note Author Carlita Raygoza [facility] Note Date/Time May 06, 2025 3:49p m [facility] Medical Records Department [address] [place] [address] Progress Note - Hospitalist 05/06/25 0741 MR#: [id number] Acct: [id number] Name: ENOC ARMANDO Rep #:[id number] : 1945 79 From: Carlita Ragyoza DO PCP: Dr. Ryley Jeter MD Status:ADM IN Location: [place] [address] Reason for Visit Reason for Visit: Shortness of breath Subjective Subjective Patient states he is feeling much better. He states that his breathing was so bad he felt like he was going to . He states that his insulation board calender operator is havinghim push fluid and his greenbelt is restricting fluids so he is a little bit confused on what to do. I did explain the fact that he has a depressed EF of 40% but he also has mitral valve insufficiency which is causing backflow meaninghis EF is actually lower than the 40% measured on echocardiogram. Objective Data Objective Data Vital Signs: Vital Signs Temp Pulse Resp BP Pulse Ox O2 Del Method FiO2 97.8 F 80 18 158/97 H 98 Bi-pap 30 05/06/25 04:01 05/06/25 06:47 05/06/25 06:47 05/06/25 04:01 05/06/25 06:47 05/06/25 05:39 05/06/25 06:47 Oxygen Delivery Method Bi-pap Weight: 65.9 kg Body Mass Index (BMI) 22.7 Intake & Output: Intake and Output for Last 24 Hours 05/04/25 05/05/25 05/06/25 23:59 23:59 23:59 Intake Total 900 / 900 Balance 900 / 900 Lab / Micro Data 05/06/25 04:21 05/06/25 04:21 Labs: Laboratory Results - last 24 hr 05/05/25 19:49: WBC 16.8 H, RBC 3.15 L, Hgb 9.1 L, Hct 30.3 L, MCV 96.2 H, MCH 28.9, MCHC 30.0 L, RDW Std Deviation 49.4 H, RDW Coeff of Humaira 14.2, Plt Count 252, MPV 10.8, Immature Gran % (Auto) 0.400, Neut % (Auto) 81.8 H, Lymph % (Auto) 9.3 L, [place] % (Auto) 7.2, Eos % (Auto) 0.8, Baso % (Auto) 0.5, Absolute Neuts (auto) 13.7 H, Absolute Lymphs (auto) 1.57, Nucleated RBC % 0, PT 13.1, INR 1.0, APTT 29.3, Sodium 142, Potassium 4.5, Chloride 101, Carbon Dioxide 25.2, Anion Gap 16 H, BUN 71 H, Creatinine 2.72 H, Estim Creat Clear Calc 19.22 L, Est GFR (MDRD) Non-Af 23 L, BUN/Creatinine Ratio 26.2 H, Glucose 242 H, Lactic Acid 2.8 H*, Calcium 8.5, Total Bilirubin 0.49, AST 43 H, ALT 44, AlkalinePhosphatase 93, Troponin T High Sens 115 H* D, [place] [address] H, Total Protein 6.4, Albumin 3.9, Globulin 2.5, Albumin/Globulin Ratio 1.5 05/05/25 20:50: Urine Color Yellow, Urine Clarity Clear, Urine pH 6.0, Ur Specific Waldo 1.015, Urine Protein 30 H, Urine Glucose (UA) Normal, Urine Ketones Negative, Urine Occult Blood Negative, Urine Nitrite Negative, Urine Bilirubin Negative, Urine Urobilinogen Normal, Ur Leukocyte Esterase 25 H, UrineRBC 0 SEEN, Urine WBC 0-5 SEEN, Ur Squamous Epith Cells 0 SEEN, Urine Bacteria RARE, Urine Mucus 0 SEEN 05/05/25 21:55: Magnesium 2.3 H, Troponin T Hi Sens 2 Hr 113 H* 05/05/25 22:25: Lactic Acid 1.2 05/05/25 23:22: POC Glucose 124 H 05/05/25 23:50: Troponin T Hi Sens 4Hr 141 H* 05/06/25 00:11: Lactic Acid < 1.0 05/06/25 04:21: WBC 12.3 H, RBC 2.78 L, Hgb 8.2 L, Hct 25.8 L, MCV 92.8, MCH 29.5, MCHC 31.8 L D, RDW Std Deviation 48.0 H, RDW Coeff of Humaira 14.2, Plt Count 178, MPV 10.9, Immature Gran % (Auto) 0.500, Neut % (Auto) 94.3 H, Lymph % (Auto) 3.4 L, [place] % (Auto) 1.7, Eos % (Auto) 0.0, Baso % (Auto) 0.1, Absolute Neuts (auto) 11.6 H, Absolute Lymphs (auto) 0.42 L, Nucleated RBC % 0, Sodium 143, Potassium 4.0, Chloride 104, Carbon Dioxide 22.7, Anion Gap 16 H, BUN 75 H,Creatinine 2.46 H, Estim Creat Clear Calc 21.95 L, Est GFR (MDRD) Non-Af 26 L, BUN/Creatinine Ratio 30.3 H, Glucose 189 H, Calcium 8.3, Phosphorus 5.2 H, Total Bilirubin 0.34, AST 31, ALT 38, Alkaline Phosphatase 72, [place] [address] H, Total Protein 5.7 L, Albumin 3.3 L, Globulin 2.4, Albumin/Globulin Ratio 1.4 05/06/25 05:16: POC Glucose 204 H Micro: Microbiology 05/05/25 20:50 Urine, Clean Catch Legionella Antigen - Final 05/05/25 20:50 Urine, Clean Catch Streptococcus pneumoniae Antigen (M - Final 05/05/25 23:20 Mucosa - Nose Respiratory Panel (PCR) - Final 05/05/25 23:20 Mucosa - Nasopharyngeal Coronavirus COVID-19 PCR - Final ABG Data ABG results: ABG 05/05/25 05/05/25 05/06/25 20:48 23:45 07:08 Specimen Type ART ART ART Sample Site L Radial L Radial R Radial pH 7.44 7.47 H 7.51 H Bicarbonate Actual 27.7 H 28.0 H 27.5 H Total CO2 29 29 29 Base Excess 4 H 4 H 4 H O2 Saturation 95 96 98 O2 % 50.0 35.0 30.0 ABG pCO2 41.3 38.8 34.9 L ABG pO2 73 L 78 95 Fili Test Positive Positive Positive Respiration Rate 12 12 O2 Delivery Device BiPAP BiPAP BiPAP Vent Mode Not entered Not entered ST POC PEEP 8 8 8 Peak Inspir Pressure 14 Clinical Comments 14 8 14 8 12/8 Radiography Diagnostic Testing: Radiology Impression Chest X-Ray 05/05/25 20:00 IMPRESSION: 1. Findings compatible with CHF/volume overload. 2. Increased pulmonary opacities within the left lung, which may reflect edema or pneumonia. Reading Location: [facility] Physical Exam Const alert, oriented x3, no apparent distress, average body habitus and well nourished Constitutional Narrative: Very pleasant, elderly, white male, appears comfortable at this time on 5 L nasal cannula, no signs of respiratory distress, nursing and family at bedside HEENT head/scalp atraumatic and moist oral mucous membranes Head and Scalp: normocephalic Resp normal respiratory effort, no retractions, no use of accessory muscles and No clear to auscultation bilaterally Resp Narrative: Crackles at Baile's's bilaterally Auscultation: crackles; Negative for rhonchi or wheezes Cardio regular rate, regular rhythm, S1 normal heart sound, S2 normal heart sound, no rub, no gallops and no clicks; Negative for no murmurs Cardio Narrative: 3 out of 6 systolic murmur loudest at left lower sternal border GI normal to inspection, nondistended, normoactive bowel sounds, soft to palpation and non-tender Extremity Extremity Narrative: Trace bilateral lower extremity edema, pedal pulses are 2+, radial pulses are 2+, no cyanosis or clubbing Neuro oriented x3, moves all extremities and no focal motor deficits Speech: speech normal Psych affect normal Psych Narrative: Very pleasant, interacts appropriately Assessment & Plan Assessment/Plan (1) Acute on chronic hypoxic respiratory failure: (2) Elevated troponin: (3) Acute on chronic HFrEF (heart failure with reduced ejection fraction): (4) Mitral valve insufficiency: (5) Mild pulmonary hypertension: (6) Leukocytosis: PLAN: Plan Acute on chronic hypoxic respiratory failure secondary to acute on chronic heartfailure with reduced ejection fraction/diastolic dysfunction - Patient with an EF of 40% but mitral valve insufficiency giving him an actual EF of less than 40% -? If patient would benefit from consideration for mitral valve clipping--> will have him follow-up as an outpatient with his greenbelt Dr. Small in [place] - Fluid restricted 1500 cc daily - Sodium restricted diet - Continue IV Bumex - Continue daily weights - No need for repeat echocardiogram as his last one was in early April - Currently on 5 L nasal cannula off of BiPAP - Would continue BiPAP at night - Wean oxygen as able - Baseline oxygen has been 2 L with exertion and not at rest - Discontinue steroids Mitral valve insufficiency - Suspect this is significantly contributing to his heart failure - Will leave to his outpatient greenbelt for further evaluation but I do wonder if the patient would benefit from mitral clipping given the fact that he has had multiple exacerbations of heart failure and I suspect his mitral valve is contributing to this considerably Leukocytosis - May be stress response and is trending down - Chest x-ray was suggestive of an infiltrate so we will continue antibiotics with Zosyn for now given his recent hospitalization - If clinically stable tomorrow would recommend discontinuing because my suspicion for pneumonia is low given clinical picture Troponin elevation - Secondary to acute exacerbation of chronic heart failure - No further workup required at this time Secondary pulmonary hypertension - Diuresis as noted above COPD - Low suspicion for acute exacerbation - Continue aerosols - Discontinue steroids - Baseline oxygen status is 2 L with exertion and none of the rest DM-1 - Continue home insulin - Cardiac/carb controlled diet - Accu-Cheks as ordered - Discontinue Solu-Medrol - Repeat lab in a.m. Chronic anemia - Normocytic - Stable counts - Repeat CBC in a.m. CKD stage IV - Serum creatinine is at his baseline - Monitor closely with diuresis - Repeat BMP in a.m. CAD/essential hypertension/hyperlipidemia - Continue home carvedilol, hydralazine, isosorbide mononitrate - Hold home Lasix - Continue home Zetia BPH with obstruction - Continue home Proscar - Continue home Flomax DVT prophylaxis - Continue subcu heparin 3 times daily CODE STATUS - DNR CCA with no intubation Charges/Coding Visit Charges Inpatient E&M: 56838 Subs Hosp L2 05/06/25 1549 <Electronically signed by Carlita Raygoza DO> Cosigner Signature (if applicable): CC: ~ Signed [facility] Work Phone: 1(237) 829-165107-06-2025 History and physical note Author Nancy Henson [facility] Note Date/Time May 06, 2025 6:48a m [facility] Medical Records Department [address] [place] [address] H&P Exam - Hospitalist 05/05/257 MR#: [id number] Acct: [id number] Name: ENOC ARMANDO Rep #:[id number] : 1945 79 From: Nancy Lee DO PCP: Dr. Ryley Jeter MD Status:ADM IN Location: [place] [address] HPI - General General Date of Admission: 05/05/25 Date of Service: 05/05/25 Chief Complaint: SOB. HPI Narrative ENOC ARMANDO, is a 79 [...] COPD, history of COVID-19 (2022), CKD; stage IV, chronic macrocytic anemia; with recent blood transfusion ~10 days ago,BPH; history of obstructive uropathy on tamsulosin, GERD; on pantoprazole, OA; with lumbar spondylolisthesis plus sciatica and recent admission here from April 03, 2025 to April 10, 2025 for treatment of acute hypoxic respiratory failure due to AE COPD with superimposed pneumonia complicated by MADONNA in the setting of CKD;stage IIIb-IV with patient initiated on hemodialysis via tunneled catheter placed during that admission along with [id number] anemia with hemoglobin dropping to 6.9 g/dL requiring blood transfusion and most recent admission here from April 19, 2025 to April 22, 2025 for treatment of AE of combined systolic anddiastolic CHF; with LVEF 40% plus stage I diastolic dysfunction complicated by AE COPD; with acute hypoxic respiratory failure requiring Airvo in addition to hyperkalemia of 5.9 mmol/L suspected to be due to adverse drug reaction to spironolactone with a leukocytosis of 14K present on admission without obvious signs of infection with DNR-CCA; without intubation CODE STATUS who re-presents to [facility] ER complaining of shortness of breath. Mr. Armando reports his symptoms began approximately a few hours prior to admission with the abrupt-onset of dyspnea on exertion the progressive shortnessof breath at rest which caused him to activate EMS. In the ER he was noted to have an elevated NT pro-BNP II of 23,319 pg/mL present on admission consistent with AE of chronic combined systolic and diastolic CHF; LVEF ~40% plus stage I diastolic dysfunction with a corresponding elevated initial troponin of 115 ng/Lsuspected to be due to acute cardiac strain complicated by clinical evidence of AE COPD with [id number]-[id number] Hypoxic Respiratory Failure; requiring BiPAP with Leukocytosis of 16.8 K in addition to Lactic Acidosis of 2.8 mmol/L both presenton admission with a CXR that revealed findings compatible with CHF/volume overload with increased pulmonary opacities within the lung which may represent edema or Pneumonia causing ER physician to treat him with empiric IV ceftriaxoneand IV azithromycin plus methylprednisolone and bumetanide. He was then admitted to the PCU for ongoing care for stay that is expected to extend beyond 2 midnights. [facility] Medical History (Updated 05/06/25 @ 01:[address] Nancy Rizzo DO) HFrEF (heart failure with reduced ejection fraction) ASCVD (arteriosclerotic cardiovascular disease) CKD (chronic kidney disease) stage 3, GFR 30-59 ml/min CKD (chronic kidney disease), stage IV Non-STEMI (non-ST elevated myocardial infarction) Bradycardia MADONNA (acute kidney injury) Anemia LV dysfunction Chronic anemia Tobacco use COPD (chronic obstructive pulmonary disease) HLD (hyperlipidemia) HTN (hypertension) BPH (benign prostatic hyperplasia) Chronic low back pain with sciatica Diabetes mellitus, type 2 CKD (chronic kidney disease), stage III Pneumonia COVID Wears glasses Wears dentures Home Medications ?Medication ?Instructions ?Recorded ?Last Taken ?Type insulin glargine 100 unit/mL (3 15 unit subcut QPM maciej betes 08/05/21 05/04/25 History mL) subcutaneous pen (Lantus Solostar U-100 Insulin) insulin lispro 100 unit/mL 0 unit subcut TID SLIDING S JENNIFER 08/05/21 05/05/25 History subcutaneous pen tamsulosin 0.4 mg capsule (Flomax) 0.4 mg PO DAILY [facility] 08/05/21 05/04/25 History ezetimibe 10 mg tablet 10 mg PO DAILY cholesterol 0 04/06/24 05/05/25 History blood sugar diagnostic (Contour 09/12/24 Unknown Hist ory Next Test Strips) hydralazine 50 mg tablet 50 mg PO Q8H BP 04/03/2503/25 History albuterol sulfate 2.5 mg/3 mL 2.5 mg (3 mL) inhalation Q2H PRN 04/22/25 05/05/25 Rx (0.083 %) solution for nebulization PRN SOB &/OR WHEEZ ING 30 days #180 mL albuterol sulfate 90 mcg/actuation 2 inh inhalation Q6 H PRN shortness 04/22/25 05/05/25 Rx breath activated powder inhaler of breath or wheezing #1 ea (ProAir RespiClick) carvedilol 25 mg tablet 25 mg PO BIDCM #60 tabs 04/0205/05/25 Rx furosemide 40 mg tablet 40 mg PO BIDLX water pill #6 0 tabs 04/22/25 05/05/25 Rx isosorbide mononitrate 30 mg 30 mg PO DAILY BP #30 tab s 04/22/25 05/05/25 Rx tablet,extended release 24 hr nebulizer and compressor #1 ea 04/22/25 Unknown Rx finasteride 5 mg tablet 5 mg PO DAILY prostate 05/0505/05/25 History Allergy/AdvReac Type Severity Reaction Status Date / Time spironolactone AdvReac Intermediate Hyperkalemi Verified 04/19/25 03:10 a Corticosteroids AdvReac Other Verified 04/03/25 00:16 (Glucocorticoids) (steroids) Emgfqvs-YRT-KzG Reductase AdvReac Other Verified 04/03/25 00:16 Inhibitor (Vfuuexo-Zar-Uvq Reductase Inhibitor) Family History Mother COPD (chronic obstructive pulmonary disease) Father CAD (coronary artery disease) Heart disease Surgical History Hx of cystoscopy Hx of colonoscopy Hx of left cataract extraction Hx of right cataract extraction Social History household members: spouse Smoking Status: Current every day smoker tobacco type: cigarettes alcohol intake: never substance use type: does not use ROS ROS Narrative Review of systems was not possible due to patient's respiratory distress on BiPAP. Vital Signs Vital Signs Vital Signs: 05/05/25 19:39 05/05/25 19:44 05/05/25 19:46 Temperature 96.5 F L Temperature Source Temporal Pulse Rate 98 Respiratory Rate 24 H Respiratory Effort Labored Accessory Muscle Use Respiratory Pattern Tachypnea Blood Pressure 157/83 H Blood Pressure Mean 107 Pulse Ox 75 78 Oxygen Delivery Method CPAP CPAP Fraction of Inspired Oxygen (FIO2) 05/05/25 19:48 05/05/25 19:49 05/05/25 19:55 Temperature Temperature Source Pulse Rate 113 H 111 H 111 H Respiratory Rate 28 H 28 H 30 H Respiratory Effort Respiratory Pattern Tachypnea Tachypnea Blood Pressure 185/86 H Blood Pressure Mean 119 Pulse Ox 74 97 Oxygen Delivery Method Bi-pap Fraction of Inspired Oxygen (FIO2) 80 05/05/25 20:14 05/05/25 20:30 05/05/25 20:43 Temperature 96.5 F L Temperature Source Oral Pulse Rate 108 H 98 98 Respiratory Rate 29 H 27 H 27 H Respiratory Effort Respiratory Pattern Blood Pressure 164/84 H 164/84 H Blood Pressure Mean 110 110 Pulse Ox 95 96 96 Oxygen Delivery Method Bi-pap Bi-pap Fraction of Inspired Oxygen (FIO2) 50 05/05/25 21:00 05/05/25 21:29 05/05/25 21:30 Temperature 96.5 F L 96.5 F L Temperature Source Temporal Pulse Rate 91 84 Respiratory Rate 21 H 18 Respiratory Effort Respiratory Pattern Blood Pressure 157/96 H 132/82 H 132/82 H Blood Pressure Mean 116 98 98 Pulse Ox 95 95 Oxygen Delivery Method Bi-pap Fraction of Inspired Oxygen (FIO2) Weight Weight: 145 lb 15.136 oz Body Mass Index (BMI) 23.6 Physical Exam Const alert and oriented x3 Constitutional Narrative: Patient noted to be comfortable on BiPAP. General Appearance: cooperative HEENT normocephalic, head/scalp atraumatic and hearing grossly normal bilaterally Eyes PERRL and EOMs intact bilaterally Neck no lymphadenopathy and supple Resp Resp Narrative: Diminished breath sounds throughout inspiratory and wheezing. Cardio regular rate and regular rhythm GI normal to inspection, nondistended, normoactive bowel sounds, soft to palpation,non-tender and non-distended Extremity normal to inspection and full ROM Skin Skin Narrative: Patient has evidence of rash, abscess, wounds or jaundice. Neuro oriented x3, CN's II-XII intact bilaterally, moves all extremities and no focal motor deficits Sensorium / Orientation: awake, alert, oriented to person, oriented to place andoriented to time Speech: speech normal Psych Mood & Affect: anxious Results Medical Records Data Attestation: I reviewed the patient's medical records Lab / Micro Data Attestation: I reviewed the patient's lab results. 05/05/25 19:49 05/05/25 19:49 Labs: Laboratory Results - last 24 hr 05/05/25 19:49: WBC 16.8 H, RBC 3.15 L, Hgb 9.1 L, Hct 30.3 L, MCV 96.2 H, MCH 28.9, MCHC 30.0 L, RDW Std Deviation 49.4 H, RDW Coeff of Humaira 14.2, Plt Count 252, MPV 10.8, Immature Gran % (Auto) 0.400, Neut % (Auto) 81.8 H, Lymph % (Auto) 9.3 L, [place] % (Auto) 7.2, Eos % (Auto) 0.8, Baso % (Auto) 0.5, Absolute Neuts (auto) 13.7 H, Absolute Lymphs (auto) 1.57, Nucleated RBC % 0, PT 13.1, INR 1.0, APTT 29.3, Sodium 142, Potassium 4.5, Chloride 101, Carbon Dioxide 25.2, Anion Gap 16 H, BUN 71 H, Creatinine 2.72 H, Estim Creat Clear Calc 19.22 L, Est GFR (MDRD) Non-Af 23 L, BUN/Creatinine Ratio 26.2 H, Glucose 242 H, Lactic Acid 2.8 H*, Calcium 8.5, Total Bilirubin 0.49, AST 43 H, ALT 44, AlkalinePhosphatase 93, Troponin T High Sens 115 H* D, [place] [address] H, Total Protein 6.4, Albumin 3.9, Globulin 2.5, Albumin/Globulin Ratio 1.5 05/05/25 20:50: Urine Color Yellow, Urine Clarity Clear, Urine pH 6.0, Ur Specific Waldo 1.015, Urine Protein 30 H, Urine Glucose (UA) Normal, Urine Ketones Negative, Urine Occult Blood Negative, Urine Nitrite Negative, Urine Bilirubin Negative, Urine Urobilinogen Normal, Ur Leukocyte Esterase 25 H, UrineRBC 0 SEEN, Urine WBC 0-5 SEEN, Ur Squamous Epith Cells 0 SEEN, Urine Bacteria RARE, Urine Mucus 0 SEEN Imaging Radiology Impression Chest X-Ray 05/05/25 20:00 IMPRESSION: 1. Findings compatible with CHF/volume overload. 2. Increased pulmonary opacities within the left lung, which may reflect edema or pneumonia. Reading Location: [id number] Assessment & Plan Assessment/Plan (1) CHF exacerbation: QUALIFIERS: Heart failure type: combined systolic and diastolic Qualified Code(s): I50.43 - Acute on chronic combined systolic (congestive) and diastolic (congestive) heart failure (2) Elevated troponin: (3) COPD exacerbation: (4) Acute on chronic hypoxic respiratory failure: (5) Pneumonia: QUALIFIERS: Laterality: unspecified laterality Lung location: unspecified part of lung Pneumonia type: due to unspecified organism Qualified Code(s): J18.9 - Pneumonia, unspecified organism (6) CKD (chronic kidney disease), stage IV: (7) Diabetes mellitus, type 2: QUALIFIERS: Diabetes mellitus complication status: without complication Diabetes mellitus mcc insulin use: with 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 use Qualified Code(s): E11.9 - Type 2 diabetes mellitus without complications; Z79.4 - 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 PLAN: Plan 1. AE of chronic combined systolic and diastolic CHF; LVEF ~40% plus stage I diastolic dysfunction - Admit to PCU. Continue IV bumetanide begun in ER plus give supplemental potassium and magnesium. Recheck NT pro-BNP II and CXR daily to follow trend. 2. Elevated initial troponin of 115 ng/L suspected to be due to acute cardiac strain due to #1 - Serialize troponin. Give BASA daily and maintain statin. 3. AE COPD with Xyqmy-ou-Dygykkw Hypoxic Respiratory Failure; requiring BiPAP complicating #1 & #2 - Wean IV methylprednisolone and BiPAP as tolerated. Continue scheduled and as needed nebulizers. Viral respiratory panel pending. 4. CXR suspicious for superimposed Pneumonia with Leukocytosis of 16.8 K in addition to Lactic Acidosis of 2.8 mmol/L both present on admission compounding #1 - #3 - Maintain broad-spectrum antibiotics started in the ER and await culture and sensitivity data. Check urinary antigens to Streptococcus pneumoniaand Legionella. 5. Very recent admission here from April 19, 2025 to April 22, 2025 for treatmentof AE of combined systolic and diastolic CHF; with LVEF 40% plus stage I diastolic dysfunction complicated by AE COPD; with acute hypoxic respiratory failure requiring Airvo in addition to hyperkalemia of 5.9 mmol/L suspected to be due to adverse drug reaction to spironolactone with a leukocytosis of 14K present on admission without obvious signs of infection adding to the medical complexity of #1 - #4 - Noted with very similar pattern of admission on this occasion as well. 6. Recent admission here from April 03, 2025 to April 10, 2025 for treatment of acute hypoxic respiratory failure due to AE COPD with superimposed pneumonia complicated by MADONNA in the setting of CKD; stage IIIb-IV with patient initiated on hemodialysis via tunneled catheter placed during that admission along with edyel-vt-unvycuf anemia with hemoglobin dropping to 6.9 g/dL requiring blood transfusion with persistent and progressively worsening Generalized Weakness - Noted with similar pattern of admission on this occasion. 7. DM-2; of unknown control with hyperglycemia of 242 mg/dL present on admission - Keep NPO for now while on BiPAP. FSBS q. 6 hours plus SSI. 8. Essential hypertension; on carvedilol, hydralazine and furosemide - Continuemetoprolol and hydralazine as before but hold spironolactone in light of #3. 9. Hyperlipidemia; on ezetimibe - Resume ezetimibe as previous. 10. CAD; s/p NSTEMI - Noted. Serialize troponin. 11. History of COVID-19 (2022) - Noted. We will check viral respiratory panel. 12. Chronic macrocytic anemia; with recent blood transfusion ~30 days ago - Apparently stable with hemoglobin of 9.1 g/dL present on admission. 13. BPH; history of obstructive uropathy on tamsulosin - Resume tamsulosin as before. 14. GERD; on pantoprazole - Maintain PPI IV while on BiPAP in light of high-dose steroids for #1. 15. OA; with lumbar spondylolisthesis plus sciatica - Give acetaminophen prn for jgjm-nj-xrgsuevj (level 1-5/10) pain or fever. 16. DVT prophylaxis - Heparin 5,000U sq TIS plus SCD's. Total time: Approximately (but not less than) 75 minutes. Charges/Coding Visit Charges Inpatient E&M: 72074 Init Hosp L3 05/06/25 0648 <Electronically signed by Nancy Rizzo DO> Cosigner Signature (if applicable): CC: Dr. Ryley Jeter MD; Dr. Nacny Rizzo DO~ Signed [facility] Work Phone: 1([phone]) 308-898007-05-2025 Discharge summary Author Curtis Amor [facility] Note Date/Time May 05, 2025 9:45p m [facility] Medical Records Department [address] [place] [address] Emergency Department Summary 05/05/25 MR#: [id number] Acct: [id number] Name: ENOC ARMANDO Rep #:[id number] : 1945 79 From: Curtis Amor DO PCP: Dr. Ryley Jeter MD Status:REG ER Location: ED HPI History of Present Illness Chief Complaint: Shortness of Breath Narrative Narrative: Patient is a 79-year-old male with past medical history of heart failure with reduced ejection fraction, chronic kidney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 Glucose 437 H 04/19/25 04:12: WBC 13.5 H, RBC 2.52 L, Hgb 7.5 L, Hct 23.7 L, MCV 94.0, MCH 29.8, MCHC 31.6 L, RDW Std Deviation 46.2 H, RDW Coeff of Humaira 13.4, Plt Count 218, MPV 11.3, Immature Gran % (Auto) 0.600, Neut % (Auto) 94.3 H, Lymph % (Auto) 2.4 L, [place] % (Auto) 2.4, Eos % (Auto) 0.1, [...] 394 H* D, [place] [address] H, Total Protein 5.8 L, Albumin 3.3 [...] interstitial edema. Enlarged cardiac silhouette. Reading Location: [place] [address] 04/19/25 1043 <Electronically signed by Bipin JEFFERS> Cosigner Signature (if applicable): 04/20/25 1042 <Electronically signed by Denisha Thompson MD> CC: Dr. Ryley Jeter MD~ Signed [facility] Work Phone: [phone]) 806-767906-20-2025 Progress note Author Denisha Thompson [facility] Note Date/Time April 20, 2025 10:4 0am [facility] Medical Records Department [address] [place] [address] Progress Note - Nephrology 04/20/25 1039 MR#: [id number] Acct: [id number] Name: ENOC ARMANDO Rep #:[id number] : 1945 79 From: eDnisha tirado MD PCP: Dr. Ryley Jeter MD Status:ADM IN Location: [place] [address] Subjective Subjective Still appears somewhat dyspneic. Objective [...] Clarity Clear, Urine pH 6.0, Ur Specific Waldo 1.015, Urine Protein 30 H, Urine Glucose [...] (Auto) 93.9 H, Lymph % (Auto) 3.5L, [place] % (Auto) 1.7, Eos % (Auto) 0.0, [...] Findings suggestive of airway trapping/asthma. Reading Location: [facility] Venous Doppler Study 04/19/25 04:03 Interpretation Summary [...] By: Jennifer Ambriz, REDD, RVT Physical Exam Narrative Alert and oriented [...] Cosigner Signature (if applicable): CC: ~ Signed [facility] Work Phone: 1([phone]) 267-155206-19-2025 Nuclear medicine Diagnostic study note [facility]06-19-2025 History and physical note Author Nancy Henson [facility] Note Date/Time April 19, 2025 6:44 am [facility] Medical Records Department [address] [place] [address] H&P Exam - Hospitalist 04/19/25 0218 MR#: [id number] Acct: [id number] Name: ENOC ARMANDO Rep #:[id number] : 1945 79 From: Nancy Lee DO PCP: Dr. Ryley Jeter MD Status:ADM IN Location: ICU ICU01-1 HPI - General General Date of Admission: 04/19/25 [...] catheter placed during that admission along with xkrcc-vs-ajcdtpw anemia with hemoglobin dropping to 6.9 g/dL requiring blood transfusion who re-presents to [facility] ER complaining of shortness of breath and [...] is expected to extend beyond 2 midnights. [facility] Medical History Non-STEMI (non-ST elevated myocardial infarction) [...] AdvReac Other Verified 04/03/25 00:16 (Glucocorticoids) (steroids) Dvtrhkk-BOJ-MzC Reductase AdvReac Other Verified 04/03/25 00:16 Inhibitor (Trvnyhd-Fbf-Xas Reductase Inhibitor) Family History Mother COPD (chronic [...] 82.3 H, Lymph % (Auto) 10.0 L, [place] % (Auto) 5.7, Eos % (Auto) 1.0, [...] H, Calcium 8.6, [place] [address] H, Procalcitonin 0.10 Micro: Microbiology 04/19/25 00:25 Mucosa - Nose SARS-CoV-2, Influenza & RSV (PCR) - Final Imaging Radiology Impression Chest X-Ray 04/19/25 01:00 IMPRESSION: Increased mild bilateral pleural effusions. Increased passive atelectatic airspace disease of the lower lobes. Increased pulmonary venous congestion and interstitial edema. Enlarged cardiac silhouette. 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 17. DVT prophylaxis - Patient given renally-dosed enoxaparin 70 mg sq x 1 untilV/Q scan and LE Doppler are confirmed negative for VTE. Total time: Approximately (but not less than) 75 minutes. Charges/Coding Visit Charges Inpatient E&M: 43221 Init Hosp L3 04/19/25 0644 <Electronically signed by Nancy Rizzo DO> Cosigner Signature (if applicable): CC: Dr. Ryley Jeter MD; Dr. Nancy Rizzo DO~ Signed [facility] Work Phone: 1(210) 659-445906-19-2025 Discharge summary Author Arnulfo Jose [facility] Note Date/Time April 19, 2025 3:48 am [facility] Health System Medical Records Department [address] [place] [address] Emergency Department Summary 04/19/25 MR#: [id number] Acct: [id number] Name: ENOC ARMANDO Rep #:[id number] : 1945 79 From: Arnulfo Jose DO [...] but denies any formal diagnosis of COPD [facility] Medical History Non-STEMI (non-ST elevated myocardial [...] AdvReac Other Verified 04/03/25 00:16 (Glucocorticoids) (steroids) Dmeirtv-MTT-KjX Reductase AdvReac Other Verified 04/03/25 00:16 Inhibitor (Uqaoowz-Ofe-Mql Reductase Inhibitor) Family History Mother COPD (chronic [...] 82.3 H Lymph % (Auto) 10.0 L [place] % (Auto) 5.7 Eos % (Auto) 1.0 [...] Magnesium 2[place] [address] H Procalcitonin 0.10 POC Glucose 437 H Radiography Diagnostic Testing: Clinical Impression(s) from Imaging Studies Chest X-Ray 04/19/25 01:00 IMPRESSION: Increased mild bilateral pleural effusions. Increased passive atelectatic airspace disease of the lower lobes. Increased pulmonary venous congestion and interstitial edema. Enlarged cardiac silhouette. Reading Location: [place] [address] Chest x-ray as interpreted by the emergency [...] Chronic anemia Disposition Disposition: Acute Care Hospital [facility] What to do if you have Problems For any increased pain, shortness of breath, bleeding, nausea or vomiting, chestpain, or any unexpected problems, contact your Primary Care Provider. Call [facility] ([phone]) or report to the closest Emergency Room. Call 911 if necessary. 04/19/25 8832 <Electronically signed by Arnulfo Andes DO> Cosigner Signature (if applicable): CC: Dr. Ryley Jeter MD ~ Signed [facility] Work Phone: 1(186) 407-245006-19-2025 Radiology Diagnostic study [facility]06-10-2025 Discharge summary [facility] Medical Records Department [address] [place] [address] Instructions for Home/Discharge Instructions 04/10/25 1527 MR#: [id number] Acct: [id number] Name: ENOC ARMANDO Rep #:[id number] : 1945 79 From: Grace Arnold MD [...] Moore MD; Dr. Smooth Luis MD ~ [facility]06-10-2025 [facility]06-10-2025 Progress note Author Denisha Thompson [facility] Note Date/Time April 10, 2025 12:2 7pm [facility] Health System Medical Records Department [address] [place] [address] Progress Note - Nephrology 04/10/25 1226 MR#: [id number] Acct: [id number] Name: ENOC ARMANDO Rep #:[id number] : 1945 79 From: Denisha tirado MD PCP: Dr. Ryley Jteer MD Status:ADM IN Location: [facility] OAN638- 1 Subjective Subjective no new events Objective Data [...] 82.6 H, Lymph % (Auto) 9.4 L, [place] % (Auto) 7.0, Eos % (Auto) 0.1, [...] stage III (followed by Dr. Albert in [place]), COPD, diabetes mellitus admitted to the hospital [...] Cosigner Signature (if applicable): CC: ~ Signed [facility] Work Phone: 1(803) 295-518506-10-2025 Progress note [facility] Medical Records Department [address] [place] [address] Progress Note - Nephrology 04/10/25 1226 MR#: [id number] Acct: [id number] Name: ENOC ARMANDO Rep #:[id number] : 1945 79 From: Denisha tirado MD PCP: Dr. Ryley Jeter MD Status:ADM IN Location: [place] [address] Subjective Subjective no new events Objective Data [...] 82.6 H, Lymph % (Auto) 9.4 L, [place] % (Auto) 7.0, Eos % (Auto) 0.1, [...] stage III (followed by Dr. Albert in [place]), COPD, diabetes mellitus admitted to the hospital [...] Cosigner Signature (if applicable): CC: ~ Signed [facility]06-09-2025 Progress note Author Grace Arnold [facility] Note Date/Time April 09, 2025 6:52p m [facility] Medical Records Department [address] [place] [address] Progress Note 04/09/25 1501 MR#: [id number] Acct: [id number] Name: ENOC ARMANDO Rep #:[id number] : 1945 79 From: Grace Arnold MD PCP: Dr. Ryley Jeter MD Status:ADM IN Location: [place] [address] Subjective Subjective Patient seen and examined in the presence of his nurse. He had no complaints andhad an uneventful night. Review of systems is otherwise negative. He is requesting to go home if he is not having dialysis. 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 He [...] 77.6 H, Lymph % (Auto) 14.1 L, [place] % (Auto) 7.4, Eos % (Auto) 0.1, [...] Cardiology was consulted and records requested from [place] showed he had cardiac cath at [place] 2 years ago and had 2 blockages [...] prophylaxis: heparin Charges/Coding Visit Charges Inpatient E&M: 90444 Subs Hosp L2 04/09/25 1852 <Electronically signed by Grace Arnold MD> Grace Arnold MD Cosigner Signature (if applicable): CC: ~ Signed [facility] Work Phone: [phone] 278-332606-09-2025 Progress note [facility] Medical Records Department [address] [place] [address] Progress Note 04/09/25 1501 MR#: [id number] Acct: [id number] Name: ENOC ARMANDO Rep #:[id number] : 1945 79 From: Grace Arnold MD PCP: Dr. Ryley Jeter MD Status:ADM IN Location: [place] [address] Subjective Subjective Patient seen and examined in the presence of his nurse. He had no complaints andhad an uneventful night. Review of systems is otherwise negative. He is requesting to go home if he is not having dialysis. 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 He [...] 77.6 H, Lymph % (Auto) 14.1 L, [place] % (Auto) 7.4, Eos % (Auto) 0.1, [...] Cardiology was consulted and records requested from [place] showed he had cardiac cath at [place] 2 years ago and had 2 blockages [...] prophylaxis: heparin Charges/Coding Visit Charges Inpatient E&M: 49761 Subs Hosp L2 04/09/25 9024 Grace Arnold MD Cosigner Signature (if applicable): CC: ~ Signed [facility]06-09-2025 Progress note Author Denisha Thompson [facility] Note Date/Time April 09, 2025 10:39 am [facility] Health System Medical Records Department [address] [place] [address] Progress Note - Nephrology 04/09/25 1037 MR#: [id number] Acct: [id number] Name: ENOC ARMANDO Rep #:[id number] : 1945 79 From: Denisha tirado MD PCP: Dr. Ryley Jeter MD Status:ADM IN Location: [place] [address] Subjective Subjective No new complaints today. Urine [...] 77.6 H, Lymph % (Auto) 14.1 L, [place] % (Auto) 7.4, Eos % (Auto) 0.1, [...] stage III (followed by Dr. Albert in [place]), COPD, diabetes mellitus admitted to the hospital [...] Cosigner Signature (if applicable): CC: ~ Signed [facility] Work Phone: 1(911) 899-997106-09-2025 Progress note [facility] Medical Records Department [address] [place] [address] Progress Note - Nephrology 04/09/25 1037 MR#: [id number] Acct: [id number] Name: ENOC ARMANDO Rep #:[id number] : 1945 79 From: Denisha tirado MD PCP: Dr. Ryley Jeter MD Status:ADM IN Location: [facility] USO492- 1 Subjective Subjective No new complaints today. Urine [...] 77.6 H, Lymph % (Auto) 14.1 L, [place] % (Auto) 7.4, Eos % (Auto) 0.1, [...] stage III (followed by Dr. Albert in [place]), COPD, diabetes mellitus admitted to the hospital [...] Cosigner Signature (if applicable): CC: ~ Signed [facility]06-09-2025 Progress note Author Dyana Hwang [facility] Note Date/Time April 08, 2025 10:57 pm [facility] Medical Records Department [address] [place] [address] Progress Note - Hospitalist 04/08/252256 MR#: [id number] Acct: [id number] Name: ENOC ARMANDO Rep #:[id number] : 1945 79 From: Dyana Hwang MD PCP: Dr. Ryley Jeter MD Status:ADM IN Location: [place] [address] Hospitalist Note BS elevated, given ISS, repeat check remains elevated, will give an additional 15 u now and recheck 1-2 hours. 04/08/252256 <Electronically signed by Dyana Hwang MD> Cosigner Signature (if applicable): CC: ~ Signed [facility] Work Phone: 1(547) 166-518706-08-2025 Progress note [facility] Medical Records Department [address] [place] [address] Progress Note - Hospitalist 04/08/252256 MR#: [id number] Acct: [id number] Name: ENOC ARMANDO Rep #:[id number] : 1945 79 From: Dyana Hwang MD PCP: Dr. Ryley Jeter MD Status:ADM IN Location: [place] [address] Hospitalist Note BS elevated, given ISS, repeat check remains elevated, will give an additional 15 u now and recheck1-2 hours. 04/08/252256 Cosigner Signature (if applicable): CC: ~ Signed [facility]06-08-2025 Progress note Author Jose Moore [facility] Note Date/Time April 08, 2025 10:37 am [facility] Medical Records Department [address] [place] [address] Progress Note - Hospitalist 04/08/25 1026 MR#: [id number] Acct: [id number] Name: ENOC ARMANDO Rep #:[id number] : 1945 79 From: Jose lui MD PCP: Dr. Ryley Jeter MD Status:ADM IN Location: [place] [address] Subjective Subjective Feels better today than he [...] 88.0 H, Lymph % (Auto) 7.3 L, [place] % (Auto) 4.2, Eos % (Auto) 0.0, [...] a heart cath 2 years ago at [place] with 2 blockages that could not be [...] DVT: SCDs Charges/Coding Visit Charges Inpatient E&M: 83532 Subs Hosp L2 04/08/25 1037 <Electronically signed by Jose Moore MD> Cosigner Signature (if applicable): CC: ~ Signed [facility] Work Phone: 1([phone]) 131-338406-08-2025 Progress note [facility] Medical Records Department [address] [facility] [place] [address] Progress Note - Hospitalist 04/08/25 1026 MR#: [id number] Acct: [id number] Name: ENOC ARMANDO Rep #:[id number] : 1945 79 From: Jose lui MD PCP: Dr. Ryley Jeter MD Status:ADM IN Location: [place] [address] Subjective Subjective Feels better today than he [...] 88.0 H, Lymph % (Auto) 7.3 L, [place] % (Auto) 4.2, Eos % (Auto) 0.0, [...] a heart cath 2 years ago at [place] with 2 blockages that could not be [...] DVT: SCDs Charges/Coding Visit Charges Inpatient E&M: 12940 Subs Hosp L2 04/08/25 1037 Cosigner Signature (if applicable): CC: ~ Signed [facility]06-07-2025 Progress note Author Nate Forbes [facility] Note Date/Time April 07, 2025 5:18p m [facility] System Medical Records Department [address] [place] [address] Progress Note - Licensing Worker 04/07/251716 MR#: [id number] Acct: [id number] Name: ENOC ARMANDO Rep #:[id number] : 1945 79 From: Nate Forbes MD PCP: Dr. Ryley Jeter MD Status:ADM IN Location: [place] [address] Objective Data Objective Data Vital Signs: Vital [...] 595 340 / 595 Output Total 1749 3380 / 3490 110 / 3490 Balance [...] mls/hr 04/03/25 05:18 04/06/25 14:45 IV Infused .[id number] PRN Infusion Saline Flush Sodium Chloride 250 mls @ 15 mls/hr 04/03/25 05:18 IV .[id number] PRN Additional IVPB Infusion Dextrose 250 mls [...] Hcl 0.4 Mg Capsule PO 0.4 mg Ayla@1735 DIDI Administration Lab / Micro Data 04/07/25 [...] 79.0 H, Lymph % (Auto) 12.6 L, [place] % (Auto) 8.0, Eos % (Auto) 0.1, [...] per nephrology yesterday. Cont recommendations as per pulmonary/certified pest control technician note yesterday. We will monitor peripherally over the weekend, but please call us any time if questions or if clinical worsening. Nate Forbes MD 04/07/251717 <Electronically signed by Nate Forbes MD> Cosigner Signature (if applicable): CC: ~ Signed [facility] Work Phone: 1(886) 498-278206-07-2025 Progress note [facility] Medical Records Department [address] [place] [address] Progress Note - Licensing Worker 04/07/251716 MR#: [id number] Acct: [id number] Name: ENOC ARMANDO Rep #:[id number] : 1945 79 From: Nate Forbes MD PCP: Dr. Ryley Jeter MD Status:ADM IN Location: [place] [address] Objective Data Objective Data Vital Signs: Vital [...] 04/07/25 04/07/25 23:59 11:59 23:59 Intake Total 2009 255 / 595 340 / 595 Output Total 1749 3380 / 3490 110 / 3490 Balance -1200 / -40 -3125 / -2895 230 / -2895 I&O: Total Stay 3 04/02/25 23:59 thru 04/07/25 16:01 Intake Total 5545.73 Output Total 5684 Balance -1344.27 Current Meds Ordered / Administered: [...] mls/hr 04/03/25 05:18 04/06/25 14:45 IV Infused .[id number] PRN Infusion Saline Flush Sodium Chloride 250 mls @ 15 mls/hr 04/03/25 05:18 IV .[id number] PRN Additional IVPB Infusion Dextrose 250 mls [...] Hcl 0.4 Mg Capsule PO 0.4 mg Ayla@8114 DIDI Administration Lab / Micro Data 04/07/25 [...] 79.0 H, Lymph % (Auto) 12.6 L, [place] % (Auto) 8.0, Eos % (Auto) 0.1, [...] per nephrology yesterday. Cont recommendations as per pulmonary/certified pest control technician note yesterday. We will monitor peripherally over the weekend, but please call us any time if questions or if clinical worsening. Nate Forbes MD 04/07/25 1035 Cosigner Signature (if applicable): CC: ~ Signed [facility]06-07-2025 Progress note Author Jose Moore [facility] Note Date/Time April 07, 2025 3:15p m [facility] System Medical Records Department [address] [place] [address] Progress Note - Hospitalist 04/07/25 1450 MR#: [id number] Acct: [id number] Name: ENOC ARMANDO Rep #:[id number] : 1945 79 From: Jose lui MD PCP: Dr. Ryley Jeter MD Status:ADM IN Location: [place] [address] Subjective Subjective Doing well, no issues overnight. [...] 79.0 H, Lymph % (Auto) 12.6 L, [place] % (Auto) 8.0, Eos % (Auto) 0.1, [...] a cardiac cath 2 years ago at [place] and was told he had 2 blockages which were not amenable to revascularization. Records requested from [place]. Further management as per cardiology. 04/06/2025: Breath [...] as above. * Further records requested from [place] as above * cardiology on board 04/06/2025: Pollok to be due to demand ischemia though [...] DVT: SCDs Charges/Coding Visit Charges Inpatient E&M: 22964 Subs Hosp L2 04/07/25 1515 <Electronically signed by Jose Moore MD> Cosigner Signature (if applicable): CC: ~ Signed [facility] Work Phone: 1(100) 327-676006-07-2025 Progress note [facility] Medical Records Department [address] [place] [address] Progress Note - Hospitalist 04/07/25 1450 MR#: [id number] Acct: [id number] Name: ENOC ARMANDO Rep #:[id number] : 1945 79 From: Jose lui MD PCP: Dr. Ryley Jeter MD Status:ADM IN Location: [place] [address] Subjective Subjective Doing well, no issues overnight. [...] 79.0 H, Lymph % (Auto) 12.6 L, [place] % (Auto) 8.0, Eos % (Auto) 0.1, [...] a cardiac cath 2 years ago at [place] and was told he had 2 blockages which were not amenable to revascularization. Records requested from [place]. Further management as per cardiology. 04/06/2025: Breath [...] as above. * Further records requested from [place] as above * cardiology on board 04/06/2025: Pollok to be due to demand ischemia though [...] DVT: SCDs Charges/Coding Visit Charges Inpatient E&M: 16824 Subs Hosp L2 04/07/25 1515 Cosigner Signature (if applicable): CC: ~ Signed [facility]06-06-2025 Progress note Author Jose Moore [facility] Note Date/Time April 06, 2025 6:25p m [facility] System Medical Records Department [address] [place] [address] Progress Note - Hospitalist 04/06/25 1818 MR#: [id number] Acct: [id number] Name: ENOC ARMANDO Rep #:[id number] : 1945 79 From: Jose lui MD PCP: Dr. Ryley Jeter MD Status:ADM IN [facility] Subjective Subjective Doing well, no issues overnight [...] (Auto) 83.3 H, Lymph % (Auto) 9.1L, [place] % (Auto) 7.0, Eos % (Auto) 0.0, [...] Lung findings are grossly unchanged. Reading Location: [facility] Rhythm Strip Rhythm Strip: Sinus Rhythm [...] a cardiac cath 2 years ago at [place] and was told he had 2 blockages which were not amenable to revascularization. Records requested from [place]. Further management as per cardiology. 04/06/2025: Breath sounds are improving and he is maintaining nasal cannula after dialysis #Elevated cardiac enzymes: * initial troponin was 58, and only peaked at 76. 2D echo as above. * Further records requested from [place] as above * cardiology on board 04/06/2025: Pollok to be due to demand ischemia though [...] DVT: Heparin Charges/Coding Visit Charges Inpatient E&M: 87859 Subs Hosp L2 04/06/25 1825 <Electronically signed by Jose Moore MD> Cosigner Signature (if applicable): CC: ~ Signed [facility] Work Phone: 1(327) 936-104706-06-2025 Progress note [facility] Medical Records Department [address] [place] [address] Progress Note - Hospitalist 04/06/25 1818 MR#: [id number] Acct: [id number] Name: ENOC ARMANDO Rep #:[id number] : 1945 79 From: Jose lui MD PCP: Dr. Ryley Jeter MD Status:ADM IN Location: [place] [address] Subjective Subjective Doing well, no issues overnight [...] (Auto) 83.3 H, Lymph % (Auto) 9.1L, [place] % (Auto) 7.0, Eos % (Auto) 0.0, [...] Lung findings are grossly unchanged. Reading Location: [facility] Rhythm Strip Rhythm Strip: Sinus Rhythm [...] a cardiac cath 2 years ago at [place] and was told he had 2 blockages which were not amenable to revascularization. Records requested from [place]. Further management as per cardiology. 04/06/2025: Breath sounds are improving and he is maintaining nasal cannula after dialysis #Elevated cardiac enzymes: * initial troponin was 58, and only peaked at 76. 2D echo as above. * Further records requested from [place] as above * cardiology on board 04/06/2025: Pollok to be due to demand ischemia though [...] DVT: Heparin Charges/Coding Visit Charges Inpatient E&M: 75653 Subs Hosp L2 04/06/25 1825 Cosigner Signature (if applicable): CC: ~ Signed [facility]06-06-2025 Progress note Author Bipin Gonzalez [facility] Note Date/Time April 06, 2025 4:18p m [facility] Health System Medical Records Department [address] [place] [address] Progress Note - Nephrology 04/06/25 1117 MR#: [id number] Acct: [id number] Name: ENOC ARMANDO Rep #:[id number] : 1945 79 From: Bipin JEFFERS PCP: Dr. Ryley Jeter MD Status:ADM IN Location: [place] [address] Documented by User: AURY Davison 04/06/25 11:24 [...] Sl. Cloudy, Urine pH 5.0, Ur Specific Waldo 1.020, Urine Protein 100 H, Urine Glucose [...] (Auto) 83.3 H, Lymph % (Auto) 9.1L, [place] % (Auto) 7.0, Eos % (Auto) 0.0, [...] Lung findings are grossly unchanged. Reading Location: [facility] Rhythm Strip Rhythm Strip: Sinus Rhythm [...] stage III (followed by Dr. Albert in [place]), COPD, diabetes mellitus admitted to the hospital [...] stage III (followed by Dr. Albert in [place]), COPD, diabetes mellitus admitted to the hospital [...] and plan reviewed with Dr. Thompson. 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 BAKARI is typically short lived. hopefully will recover soon. HD today. will reevaluate tomorrow 04/06/25 1124 <Electronically signed by Bipin JEFFERS> Cosigner Signature (if applicable): 04/06/25 1618 <Electronically signed by Denisha Thompson MD> CC: ~ Signed [facility] Work Phone: 1(392) 874-622006-06-2025 Progress note [facility] Medical Records Department [address] [place] [address] Progress Note - Nephrology 04/06/25 1117 MR#: [id number] Acct: [id number] Name: ENOC ARMANDO Rep #:[id number] : 1945 79 From: Bipin JEFFERS PCP: Dr. Ryley Jeter MD Status:ADM IN Location: [place] [address] Documented by User: AURY Davison 04/06/25 11:24 [...] Sl. Cloudy, Urine pH 5.0, Ur Specific Waldo 1.020, Urine Protein 100 H, Urine Glucose [...] (Auto) 83.3 H, Lymph % (Auto) 9.1L, [place] % (Auto) 7.0, Eos % (Auto) 0.0, [...] Lung findings are grossly unchanged. Reading Location: [facility] Rhythm Strip Rhythm Strip: Sinus Rhythm [...] stage III (followed by Dr. Albert in [place]), COPD, diabetes mellitus admitted to the hospital [...] stage III (followed by Dr. Albert in [place]), COPD, diabetes mellitus admitted to the hospital [...] and plan reviewed with Dr. Thompson. 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 BAKARI is typically short lived. hopefully will recover soon. HD today. will reevaluate tomorrow 04/06/25 1124 Cosigner Signature (if applicable): 04/06/25 1618 CC: ~ Signed [facility]06-06-2025 Progress note Author Smooth Luis [facility] Note Date/Time April 06, 2025 11:24 am [facility] Medical Records Department [address] [place] [address] Progress Note - Surgery 04/06/25 1123 MR#: [id number] Acct: [id number] Name: ENOC ARMANDO Rep #:[id number] : 1945 79 From: Smooth Luis MD PCP: Dr. Ryley Jeter MD Status:ADM IN Location: [place] [address] 1 Subjective Subjective Patient seen on rounds this [...] Sl. Cloudy, Urine pH 5.0, Ur Specific Waldo 1.020, Urine Protein 100 H, Urine Glucose [...] 20.8 H, Glucose 205 H, Calcium 8.9 06/05/25 16:51: POC Glucose 165 H 04/05/25 21:35: POC Glucose 282 H 04/06/25 06:24: WBC 14.8 H, RBC 2.57 L, Hgb 7.9 L, Hct 23.6 L, MCV 91.8, MCH 30.7, MCHC 33.5, RDW Std Deviation 46.2 H, RDW Coeff of Humaira 13.8, Plt Count 222,MPV 11.9, Immature Gran % (Auto) 0.500, Neut % (Auto) 83.3 H, Lymph % (Auto) 9.1L, [place] % (Auto) 7.0, Eos % (Auto) 0.0, [...] Lung findings are grossly unchanged. Reading Location: [facility] Rhythm Strip Rhythm Strip: Sinus Rhythm [...] Cosigner Signature (if applicable): CC: ~ Signed [facility] Work Phone: 1(291) 211-432406-06-2025 Progress note Author Landry Fagan [facility] Note Date/Time April 06, 2025 9:42a m [facility] Health System Medical Records Department [address] [place] [address] Progress Note - Licensing Worker 04/06/25 0938 MR#: [id number] Acct: [id number] Name: ENOC ARMANDO Rep #:[id number] : 1945 79 From: Landry Fagan DO PCP: Dr. Ryley Jeter MD Status:ADM IN Location: [place] [address] Assessment & Plan Assessment/Plan (1) Acute hypoxic [...] without intubation This note was generated with [employer] dictation software. It may contain incorrectwords, spelling, [...] Sl. Cloudy, Urine pH 5.0, Ur Specific Waldo 1.020, Urine Protein 100 H, Urine Glucose [...] (Auto) 83.3 H, Lymph % (Auto) 9.1L, [place] % (Auto) 7.0, Eos % (Auto) 0.0, [...] Lung findings are grossly unchanged. Reading Location: [facility] Rhythm Strip Rhythm Strip: Sinus Rhythm [...] affect normal Charges/Coding Visit Charges Inpatient E&M: 47754 Subs Hosp L2 04/06/25 0942 <Electronically signed by Landry Fagan DO> Cosigner Signature (if applicable): CC: ~ Signed [facility] Work Phone: 1(104) [phone] Progress note [facility] Medical Records Department [address] [place] [address] Progress Note - Surgery 04/06/25 1123 MR#: [id number] Acct: [id number] Name: ENOC ARMANDO Rep #:[id number] : 1945 79 From: Smooth Luis MD PCP: Dr. Ryley Jeter MD Status:ADM IN Location: [place] [address] 1 Subjective Subjective Patient seen on rounds this [...] Sl. Cloudy, Urine pH 5.0, Ur Specific Waldo 1.020, Urine Protein 100 H, Urine Glucose [...] (Auto) 83.3 H, Lymph % (Auto) 9.1L, [place] % (Auto) 7.0, Eos % (Auto) 0.0, [...] Lung findings are grossly unchanged. Reading Location: [facility] Rhythm Strip Rhythm Strip: Sinus Rhythm [...] Cosigner Signature (if applicable): CC: ~ Signed [facility]06-06-2025 Progress note [facility] Medical Records Department [address] [place] [address] Progress Note - Licensing Worker 04/06/25 0938 MR#: [id number] Acct: [id number] Name: ENOC ARMANDO Rep #:[id number] : 1945 79 From: Landry Fagan DO PCP: Dr. Ryley Jeter MD Status:ADM IN Location: [place] [address] Assessment & Plan Assessment/Plan (1) Acute hypoxic [...] without intubation This note was generated with [employer] software. It may contain incorrectwords, spelling, and [...] Sl. Cloudy, Urine pH 5.0, Ur Specific Waldo 1.020, Urine Protein 100 H, Urine Glucose [...] (Auto) 83.3 H, Lymph % (Auto) 9.1L, [place] % (Auto) 7.0, Eos % (Auto) 0.0, [...] Lung findings are grossly unchanged. Reading Location: [facility] Rhythm Strip Rhythm Strip: Sinus Rhythm [...] affect normal Charges/Coding Visit Charges Inpatient E&M: 20486 Subs Hosp L2 04/06/25 0942 Cosigner Signature (if applicable): CC: ~ Signed [facility]06-05-2025 Consult note Author Smooth Luis [facility] Note Date/Time April 05, 2025 6:10p m [facility] Medical Records Department [address] [place] [address] Consultation - Surgical 04/05/25 1806 MR#: [id number] Acct: [id number] Name: ENOC ARMANDO Rep #:[id number] : 1945 79 From: Smooth Luis MD PCP: Dr. Ryley Jeter MD Status:ADM IN Location: [address] 1 Assessment & Plan Assessment/Plan (1) CKD (chronic kidney disease), stage III: QUALIFIERS: Chronic kidney disease stage 3 subtype: stage 3b (GFR 30-44) Qualified Code(s): N18.32 - Chronic kidney disease, stage 3b PLAN: Plan Patient is an 79-year-old male with worsening renal function. Bender Helper is recommending temporary dialysis. Dialysis catheter was [...] who presented to the emergency department at [facility] several days ago with history of worsening [...] obtained to insert the temporary dialysis catheter. [facility] Medical History Chronic anemia Tobacco use COPD [...] AdvReac Other Verified 04/03/25 00:16 (Glucocorticoids) (steroids) Egiumog-WOD-XsJ Reductase AdvReac Other Verified 04/03/25 00:16 Inhibitor (Ptesssr-Urx-Uve Reductase Inhibitor) Family History Mother COPD (chronic [...] 85.5 H, Lymph % (Auto) 5.7 L, [place] % (Auto) 7.7, Eos % (Auto) 0.0, [...] Sl. Cloudy, Urine pH 5.0, Ur Specific Waldo 1.020, Urine Protein 100 H, Urine Glucose [...] to prior. Correlate with PSA. Reading Location: [id number] Charges/Coding Visit Charges Inpatient E&M: 98691 Init Hosp L3 04/05/25 1810 <Electronically signed by Smooth Luis MD> Cosigner Signature (if applicable): CC: Dr. Ryley Jeter MD~ Signed [facility] Work Phone: 1(228) 277-588306-05-2025 Radiology Diagnostic study note [facility] Imaging Services [address] [place] [address] CXR for Line Placement MR#: [id number] Acct: [id number] Name: ENOC ARMANDO Rep #: [id number] : 1945 M 79 From: Chely Batista MD PCP: Dr. Ryley Jeter MD Status: ADM IN Study:CXR for Line Placement Date of Exam: 04/05/25 Exam# [id number] Ordering Dr: St dany Luis MD PROCEDURE: CXR FOR LINE PLACEMENT 04/05/2025 REASON FOR EXAM: TEMP HD CATH INSERTION ON RIGHT TECHNIQUE: Single frontal view of the chest COMPARISON: 04/03/2025 RAD/CXR for Line Placement IMPRESSION: Interval insertion of right IJ line with tip at SVC, likely in appropriate position. Lung findings are grossly unchanged. Reading Location: [facility] CC: Dr. Ryley Jeter MD; Dr. Smooth Luis MD ~ Commercial Field Inspector: Signed [facility]06-05-2025 Progress note Author Grace [facility] Note Date/Time April 05, 2025 5:19p m [facility] Medical Records Department [address] [place] [address] Progress Note 04/05/25 1212 MR#: [id number] Acct: [id number] Name: ENOC ARMANDO Rep #:[id number] : 1945 79 From: Grace Arnold MD PCP: Dr. Ryley Jeter MD Status:ADM IN Location: [place] [address] Subjective Subjective Patient seen and examined. He [...] 85.5 H, Lymph % (Auto) 5.7 L, [place] % (Auto) 7.7, Eos % (Auto) 0.0, [...] to prior. Correlate with PSA. Reading Location: [id number] Rhythm Strip Rhythm Strip: Sinus Rhythm Rate: [...] a cardiac cath 2 years ago at [place] and was told he had 2 blockages which were not amenable to revascularization. Records requested from [place]. Further management as per cardiology. * #Elevated cardiac enzymes: * initial troponin was 58, and only peaked at 76. 2D echo as above. * Further records requested from [place] as above * cardiology on board * #MADONAN on CKD III with hyperkalemia * Cr [...] heparin sq. Charges/Coding Visit Charges Inpatient E&M: 91197 Subs Hosp L3 04/05/25 1719 <Electronically signed by Grace Arnold MD> Grace Arnold MD Cosigner Signature (if applicable): CC: ~ Signed [facility] Work Phone: 1(398) 855-871906-05-2025 Procedure note [facility] Medical Records Department [address] [place] [address] Operative Report 04/05/25 1810 MR#: [id number] Acct: [id number] Name: ENOC ARMANDO Rep #:[id number] : 1945 79 From: Smooth Luis MD PCP: Dr. Ryley Jeter MD Status:ADM IN [facility] Problems Associated Problem List Diagnoses (1) CKD (chronic kidney disease), stage III: Procedures Cardiovascular CF Procedures 33xxx-39xxx: 08014 Insert tunneled cv cath Operative Report (Standard) Operative Information Date of Procedure: 04/05/25 Pre-Operative Diagnosis: Renal failure Post-Operative Diagnosis: Renal failure Surgery/Procedure Performed: Right internal jugular temporary dialysis catheter insertion with ultrasound traffic clerk: No Type of Anesthesia: Local Procedure Start Time: 17:00 Procedure Stop Time: 17:20 Select all DRAINS/GRAFTS/IMPLANTS that apply: Prosthetic device Prosthetic device details: 12 Lebanese temporary dialysis catheter Estimated Blood Loss: 15 [...] Nolen MD; Dr. Nina Lee MD~ Signed [facility]06-05-2025 Consult note [facility] Medical Records Department [address] [place] [address] Consultation - Surgical 04/05/25 1806 MR#: [id number] Acct: [id number] Name: ENOC ARMANDO Rep #:[id number] : 1945 79 From: Smooth Luis MD PCP: Dr. Ryley Jeter MD Status:ADM IN Location: [place] [address] Assessment & Plan Assessment/Plan (1) CKD (chronic kidney disease), stage III: QUALIFIERS: Chronic kidney disease stage 3 subtype: stage 3b (GFR 30-44) Qualified Code(s): N18.32 - Chronic kidney disease, stage 3b PLAN: Plan Patient is an 79-year-old male with worsening renal function. Bender Helper is recommending temporary dialysis. Dialysis catheter was [...] who presented to the emergency department at [facility] several days ago with history of worsening [...] obtained to insert the temporary dialysis catheter. [facility] Medical History Chronic anemia Tobacco use COPD [...] AdvReac Other Verified 04/03/25 00:16 (Glucocorticoids) (steroids) Hogbybq-IGE-CyJ Reductase AdvReac Other Verified 04/03/25 00:16 Inhibitor (Upgysqq-Avq-Zea Reductase Inhibitor) Family History Mother COPD (chronic [...] 85.5 H, Lymph % (Auto) 5.7 L, [place] % (Auto) 7.7, Eos % (Auto) 0.0, [...] Sl. Cloudy, Urine pH 5.0, Ur Specific Waldo 1.020, Urine Protein 100 H, Urine Glucose [...] to prior. Correlate with PSA. Reading Location: [id number] Charges/Coding Visit Charges Inpatient E&M: 58595 Init Hosp L3 04/05/25 1810 Cosigner Signature (if applicable): CC: Dr. Ryley Jeter MD~ Signed [facility]06-05-2025 Progress note Author Denisha Thompson [facility] Note Date/Time April 05, 2025 3:20p m [facility] System Medical Records Department [address] [place] [address] Progress Note - Nephrology 04/05/25 1518 MR#: [id number] Acct: [id number] Name: ENOC ARMANDO Rep #:[id number] : 1945 79 From: Denisha tirado MD PCP: Dr. Ryley Jeter MD Status:ADM IN Location: [facility] [id number]- 1 Subjective Subjective he is on bipap [...] 85.5 H, Lymph % (Auto) 5.7 L, [place] % (Auto) 7.7, Eos % (Auto) 0.0, [...] Sl. Cloudy, Urine pH 5.0, Ur Specific Waldo 1.020, Urine Protein 100 H, Urine Glucose [...] to prior. Correlate with PSA. Reading Location: [id number] Rhythm Strip Rhythm Strip: Sinus Rhythm Rate: [...] stage III (followed by Dr. Albert in [place]), COPD, diabetes mellitus admitted to the hospital [...] Cosigner Signature (if applicable): CC: ~ Signed [facility] Work Phone: 1(531) 290-913106-05-2025 Progress note [facility] Medical Records Department [address] [place] [address] Progress Note 04/05/25 1212 MR#: [id number] Acct: [id number] Name: ARMANDOENOC KWONG Ariela Rep #:[id number] : 1945 79 From: Grace Arnold MD PCP: Dr. Ryley Jeter MD Status:ADM IN Location: [place] [address] 1 Subjective Subjective Patient seen and examined. [...] 85.5 H, Lymph % (Auto) 5.7 L, [place] % (Auto) 7.7, Eos % (Auto) 0.0, [...] to prior. Correlate with PSA. Reading Location: [id number] Rhythm Strip Rhythm Strip: Sinus Rhythm Rate: [...] a cardiac cath 2 years ago at [place] and was told he had 2 blockages which were not amenable to revascularization. Records requested from [place]. Further management as per cardiology. * #Elevated cardiac enzymes: * initial troponin was 58, and only peaked at 76. 2D echo as above. * Further records requested from [place] as above * cardiology on board * [...] heparin sq. Charges/Coding Visit Charges Inpatient E&M: 82720 Subs Hosp 04/05/25 3934 Grace Arnold MD Cosigner Signature (if applicable): CC: ~ Signed [facility]06-05-2025 Progress note Author Barbie Martin [facility] Note Date/Time April 05, 2025 3:10p m [facility] System Medical Records Department [address] [place] [address] Progress Note - Cardiology 04/05/25 1459 MR#: [id number] Acct: [id number] Name: ENOC ARMANDO Rep #:[id number] : 1945 79 From: Barbie gibson MD PCP: Dr. Ryley Jeter MD Status:ADM IN Location: [place] [address]- Subjective Subjective Patient denies any chest pain. [...] 85.5 H, Lymph % (Auto) 5.7 L, [place] % (Auto) 7.7, Eos % (Auto) 0.0, [...] Sl. Cloudy, Urine pH 5.0, Ur Specific Waldo 1.020, Urine Protein 100 H, Urine Glucose [...] 85.5 H, Lymph % (Auto) 5.7 L, [place] % (Auto) 7.7, Eos % (Auto) 0.0, [...] Sl. Cloudy, Urine pH 5.0, Ur Specific Waldo 1.020, Urine Protein 100 H, Urine Glucose [...] to prior. Correlate with PSA. Reading Location: [facility] Physical Exam Const alert HEENT normocephalic [...] catheterization within the last 2 years at [place]. He also had 2 blockages that were [...] be willing to see him in the [facility] in 7to 10 days after discharge. Charges/Coding Visit Charges Inpatient E&M: 30819 Subs Hosp L2 04/05/25 1510 <Electronically signed by Barbie Martin MD> Cosigner Signature (if applicable): CC: ~ Signed [facility] Work Phone: 1(697) 297-222206-05-2025 Progress note [facility] Medical Records Department [address] [place] [address] Progress Note - Nephrology 04/05/25 1518 MR#: [id number] Acct: [id number] Name: ENOC ARMANDO Rep #:[id number] : 1945 79 From: Denisha tirado MD PCP: Dr. Ryley Jeter MD Status:ADM IN Location: [place] [address] Subjective Subjective he is on bipap Objective [...] 85.5 H, Lymph % (Auto) 5.7 L, [place] % (Auto) 7.7, Eos % (Auto) 0.0, [...] Sl. Cloudy, Urine pH 5.0, Ur Specific Waldo 1.020, Urine Protein 100 H, Urine Glucose [...] to prior. Correlate with PSA. Reading Location: [facility] Rhythm Strip Rhythm Strip: Sinus Rhythm [...] stage III (followed by Dr. Albert in [place]), COPD, diabetes mellitus admitted to the hospital [...] Cosigner Signature (if applicable): CC: ~ Signed [facility]06-05-2025 Progress note [facility] Medical Records Department [address] [place] [address] Progress Note - Cardiology 04/05/25 1459 MR#: [id number] Acct: [id number] Name: ENOC ARMANDO Rep #:[id number] : 1945 79 From: Barbie gibson MD PCP: Dr. Ryley Jeter MD Status:ADM IN Location: [place] [address] Subjective Subjective Patient denies any chest pain. [...] 85.5 H, Lymph % (Auto) 5.7 L, [place] % (Auto) 7.7, Eos % (Auto) 0.0, [...] Sl. Cloudy, Urine pH 5.0, Ur Specific Waldo 1.020, Urine Protein 100 H, Urine Glucose [...] 85.5 H, Lymph % (Auto) 5.7 L, [place] % (Auto) 7.7, Eos % (Auto) 0.0, [...] Sl. Cloudy, Urine pH 5.0, Ur Specific Waldo 1.020, Urine Protein 100 H, Urine Glucose [...] to prior. Correlate with PSA. Reading Location: [id number] Physical Exam Const alert HEENT normocephalic Eyes [...] catheterization within the last 2 years at [place].He also had 2 blockages that were not [...] be willing to see him in the [facility] in 7to 10 days after discharge. Charges/Coding Visit Charges Inpatient E&M: 55483 Subs Hosp L2 04/05/25 1510 Cosigner Signature (if applicable): CC: ~ Signed [facility]06-05-2025 Consult note Author Bipin Gonzalez [facility] Note Date/Time April 05, 2025 10:03 am [facility] System Medical Records Department [address] [place] [address] Consultation - Nephrology 04/04/25 1518 MR#: [id number] Acct: [id number] Name: ENOC ARMANDO Rep #:[id number] : 1945 79 From: Bipin arreola [place] BALL ENGRAVER-C PCP: Dr. Ryley Jeter MD Status:ADM IN Location: [place] [address] Assessment & Plan Assessment/Plan (1) MADONNA (acute kidney injury): (2) CKD (chronic kidney disease), stage III: QUALIFIERS: Chronic kidney disease stage 3 subtype: stage 3b (GFR 30-44) Qualified Code(s): N18.32 - Chronic kidney disease, stage 3b (3) Acute hypoxic respiratory failure: PLAN: Plan This is an 79-year-old male with past medical history significant for hypertension, CKD stage III (followed by Dr. Albert in [place]), COPD, diabetes mellitus admitted to the hospital [...] has been following with Dr. Ayanna Albert, insulation board calender operator in [place] for history of CKD. Baseline creatinine has been around 1.8 mg/dL range. Patient denies any new medications before hospitalization. Denies any recent nausea, vomiting or diarrhea. Denies any urinary habitus changes. No NSAIDs. [facility] Medical History (Updated 04/04/25 @ 15:23 by Bipin Gonzalez, MINDI-Jonathan) Chronic anemia Tobacco use COPD (chronic obstructive [...] AdvReac Other Verified 04/03/25 00:16 (Glucocorticoids) (steroids) Kprzytj-HHB-GdT Reductase AdvReac Other Verified 04/03/25 00:16 Inhibitor (Vrshasf-Phc-Jjz Reductase Inhibitor) Family History Mother COPD (chronic [...] (Auto) 90.4 H, Lymph % (Auto) 4.9L, [place] % (Auto) 4.0, Eos % (Auto) 0.0, [...] MD> CC: Dr. Ryley Jeter MD~ Signed [facility] Work Phone: 1(665) [phone] Progress note Author Landry Fagan [facility] Note Date/Time April 05, 2025 9:30a m [facility] Medical Records Department [address] [place] [address] Progress Note - Licensing Worker 04/05/25818 MR#: [id number] Acct: [id number] Name: ENOC ARMANDO Rep #:[id number] : 1945 79 From: Landry Fagan DO PCP: Dr. Ryley Jeter MD Status:ADM IN Location: [place] [address] Assessment & Plan Assessment/Plan (1) Acute hypoxic [...] without intubation This note was generated with Typo Keyboards dictation software. It may contain incorrectwords, spelling, [...] 85.5 H, Lymph % (Auto) 5.7 L, [place] % (Auto) 7.7, Eos % (Auto) 0.0, [...] to prior. Correlate with PSA. Reading Location: [facility] Rhythm Strip Rhythm Strip: Sinus Rhythm [...] affect normal Charges/Coding Visit Charges Inpatient E&M: 72934 Subs Hosp L2 04/05/25 0930 <Electronically signed by Landry Fagan DO> Cosigner Signature (if applicable): CC: ~ Signed [facility] Work Phone: 1(310) 544-332206-05-2025 Consult note [facility] Medical Records Department [address] [place] [address] Consultation - Nephrology 04/04/25 1518 MR#: [id number] Acct: [id number] Name: ENOC ARMANDO Rep #:[id number] : 1945 79 From: Bipin arreola BOWLING BALL ENGRAVER-C PCP: Dr. Ryley Jeter MD Status:ADM IN Location: [place] [address] Assessment & Plan Assessment/Plan (1) MADONNA (acute kidney injury): (2) CKD (chronic kidney disease), stage III: QUALIFIERS: Chronic kidney disease stage 3 subtype: stage 3b (GFR 30-44) Qualified Code(s): N18.32 - Chronic kidney disease, stage 3b (3) Acute hypoxic respiratory failure: PLAN: Plan This is an 79-year-old male with past medical history significant for hypertension, CKD stage III (followed by Dr. Albert in [place]), COPD, diabetes mellitus admitted to the hospital [...] has been following with Dr. Ayanna Albert, insulation board calender operator in [place] for history of CKD. Baseline creatinine has been around 1.8 mg/dL range. Patient denies any new medications before hospitalization. Denies any recent nausea, vomiting or diarrhea. Denies any urinary habitus changes. No NSAIDs. [facility] Medical History (Updated 04/04/25 @ 15:23 by [...] AdvReac Other Verified 04/03/25 00:16 (Glucocorticoids) (steroids) Toiuubv-PSN-UtA Reductase AdvReac Other Verified 04/03/25 00:16 Inhibitor (Ibkmxbl-Qoz-Doj Reductase Inhibitor) Family History Mother COPD (chronic [...] (Auto) 90.4 H, Lymph % (Auto) 4.9L, [place] % (Auto) 4.0, Eos % (Auto) 0.0, [...] 1003 CC: Dr. Ryley Jeter MD~ Signed [facility]06-05-2025 Progress note [facility] Medical Records Department [address] [place] [address] Progress Note - Licensing Worker 04/05/25 0819 MR#: [id number] Acct: [id number] Name: ENOC ARMANDO Rep #:[id number] : 1945 79 From: Landry Fagan DO PCP: Dr. Ryley Jeter MD Status:ADM IN Location: [place] [id number]- [id number] Assessment & Plan Assessment/Plan (1) Acute [...] without intubation This note was generated with Typo Keyboards dictation software. It may contain incorrectwords, spelling, [...] 85.5 H, Lymph % (Auto) 5.7 L, [place] % (Auto) 7.7, Eos % (Auto) 0.0, [...] to prior. Correlate with PSA. Reading Location: [facility] Rhythm Strip Rhythm Strip: Sinus Rhythm [...] affect normal Charges/Coding Visit Charges Inpatient E&M: 51897 Subs Hosp L2 04/05/25 6522 Cosigner Signature (if applicable): CC: ~ Signed [facility] [id number] Radiology Diagnostic study note [facility] Imaging Services [address] [place], [place] [address] Kidney and Bladder MR#: [id number] Acct: [id number] Name: ENOC ARMANDO Rep #: [id number] : 1945 M 79 From: Demetria Mahoney MD PCP: Dr. Ryley Jeter MD Status: ADM IN Study:Kidney and Bladder Date of Exam: 0 04/04/25 Exam# [id number] Ordering Dr: Kesha Arnold MD PROCEDURE: KIDNEY [...] to prior. Correlate with PSA. Reading Location: [facility] CC: Dr. Ryley Jeter MD; Dr. Grace Arnold MD ~ Commercial Field Inspector: Signed [facility]06-04-2025 Progress note Author Grace Arnold [facility] Note Date/Time April 04, 2025 5:42p m [facility] System Medical Records Department [address] [place] [address] Progress Note 04/04/25 1121 MR#: [id number] Acct: [id number] Name: ENOC ARMANDO Rep #:[id number] : 1945 79 From: Grace Arnold MD [...] (Auto) 90.4 H, Lymph % (Auto) 4.9L, [place] % (Auto) 4.0, Eos % (Auto) 0.0, [...] a cardiac cath 2 years ago at [place] and was told he had 2 blockages which were not amenable to revascularization. Records requested from [place]. Further management as per cardiology. * #Elevated cardiac enzymes: * initial troponin was 58, and only peaked at 76. 2D echo as above. * Further records requested from [place] as above * cardiology on board * [...] heparin sq. Charges/Coding Visit Charges Inpatient E&M: 52894 Subs Hosp L3 04/04/25 1742 <Electronically signed by Grace Arnold MD> Grace Arnold MD Cosigner Signature (if applicable): CC: ~ Signed [facility] Work Phone: 1(384) 930-776606-04-2025 Progress note [facility] Medical Records Department [address] [place] [address] Progress Note 04/04/25 1121 MR#: [id number] Acct: [id number] Name: ENOC ARMANDO Rep #:[id number] : 1945 79 From: Grace Arnold MD [...] 04/04/25 11:00 04/04/25 11:00 04/04/25 11:00 04/04/25 11:04/04/25 11:00 FiO2 30 04/03/25 18:45 Oxygen Flow [...] (Auto) 90.4 H, Lymph % (Auto) 4.9L, [place] % (Auto) 4.0, Eos % (Auto) 0.0, [...] a cardiac cath 2 years ago at [place] and was toldhe had 2 blockages which were not amenable to revascularization. Records requested from [place]. Further management as per cardiology. * #Elevated cardiac enzymes: * initial troponin was 58, and only peaked at 76. 2D echo as above. * Further records requested from [place] as above * cardiology on board * [...] heparin sq. Charges/Coding Visit Charges Inpatient E&M: 99653 Subs Hosp L3 04/04/25 1742 Grace Arnold MD Cosigner Signature (if applicable): CC: ~ Signed [facility]06-04-2025 Progress note Author Donte [facility] Note Date/Time April 04, 2025 2:56p m [facility] System Medical Records Department [address] [place] [address] Progress Note - Licensing Worker 04/04/25 1257 MR#: [id number] Acct: [id number] Name: ENOC ARMANDO Rep #:[id number] : 1945 79 From: Donte Silver PCP: [...] Tablet PO Q4H PRN PRN Fever, pain 1-1010 Al Hydroxide/Mg Hydroxide 30 ml 04/03/25 05:17 [...] mls @ 15 mls/hr 04/03/25 05:18 IV .[id number] PRN Saline Flush Sodium Chloride 250 mls @ 15 mls/hr 04/03/25 05:18 IV .F06Y63W PRN Additional IVPB Infusion Dextrose 250 mls @ 999 mls/hr 04/03/25 13:17 Dextrose 10%-Water IV .Q16M PRN Hypoglycemic Protocol Protocol Dextrose/Sodium Chloride 1,000 mls @ 60 mls/hr 04/03/25 22:35 04/03/25 23:16 IV 60 mls/hr .[id number] [facility] Administration Insulin Glargine 15 unit 04/04/25 08:50 04/04/25 10:55 Insulin Glargine-Yfgn 100 Unit/Ml Pen SC 15 unit DAILY [facility] Administration Lisinopril 5 mg 04/03/25 10:00 04/03/25 07:58 Lisinopril 5 Mg Tablet PO 5 mg DAILY [facility] Administration Protocol Melatonin 3 mg 04/03/25 05:17 Melatonin 3 Mg Tablet PO QHS PRN PRN INSOMNIA Metoprolol Succinate 25 mg 04/03/25 10:00 04/04/25 10:55 Metoprolol(Xl)Succ 25 Mg Tablet PO 25 mg DAILY [facility] Administration Protocol Nitroglycerin 0.4 mg 04/03/25 05:17 Nitroglycerin (Inpatient Use) 0.4 Mg Tab.Subl SL Q5M PRN CARDIAC/CHEST PAIN Ondansetron HCl 4 mg 04/03/25 05:17 Ondansetron 4 Mg/2 Ml Vial IV Q8H PRN PRN NAUSEA/VOMITING Potassium Chloride 20 meq 04/03/25 08:00 04/04/25 10:50 Potassium Chloride Oral Tablet 20 Meq PO 20 meq BIDCM [facility] Administration Prednisone 40 mg 04/05/25 08:00 Prednisone 20 Mg Tablet PO 04/10/25 08:01 BREAKFAST [facility] Prochlorperazine Edisylate 5 mg 04/03/25 05:17 [...] Hcl 0.4 Mg Capsule PO 0.4 mg TuThSa@6250 [facility] Administration Lab / Micro Data 04/04/25 [...] (Auto) 90.4 H, Lymph % (Auto) 4.9L, [place] % (Auto) 4.0, Eos % (Auto) 0.0, [...] this encounter was done via Telemedicine 04/04/25 4239 <Electronically signed by Donte Nolen MD> Cosigner Signature (if applicable): CC: ~ Signed [facility] Work Phone: [phone]) 281-665906-04-2025 Progress note [facility] Medical Records Department [address] [place] [address] Progress Note - Licensing Worker 04/04/25 1257 MR#: [id number] Acct: [id number] Name: ENOC ARMANDO Rep #:[id number] : 1945 79 From: Donte Silver PCP: [...] Tablet PO Q4H PRN PRN Fever, pain 1-1010 Al Hydroxide/Mg Hydroxide 30 ml 04/03/25 05:17 [...] mls @ 15 mls/hr 04/03/25 05:18 IV .[id number] PRN Saline Flush Sodium Chloride 250 mls @ 15 mls/hr 04/03/25 05:18 IV .U11S73M PRN Additional IVPB Infusion Dextrose 250 mls @ 999 mls/hr 04/03/25 13:17 Dextrose 10%-Water IV .Q16M PRN Hypoglycemic Protocol Protocol Dextrose/Sodium Chloride 1,000 mls @ 60 mls/hr 04/03/25 22:35 04/03/25 23:16 IV 60 mls/hr .R41M78N DIDI Administration Insulin Glargine 15 unit 04/04/25 [...] 20 Mg Tablet PO 04/10/25 08:01 BREAKFAST [facility] Prochlorperazine Edisylate 5 mg 04/03/25 05:17 [...] 0.4 Mg Capsule PO 0.4 mg TuTa@1730 [facility] Administration Lab / Micro Data 04/04/25 [...] (Auto) 90.4 H, Lymph % (Auto) 4.9L, [place] % (Auto) 4.0, Eos % (Auto) 0.0, [...] this encounter was done via Telemedicine 04/04/25 1636 Cosigner Signature (if applicable): CC: ~ Signed [facility]06-04-2025 Progress note Author Breezy Campbell [facility] Note Date/Time April 04, 2025 10:35 am [facility] System Medical Records Department [address] [place] [address] Progress Note - Cardiology 04/04/25 1028 MR#: [id number] Acct: [id number] Name: ENOC ARMANDO Rep #:[id number] : 1945 79 From: Breezy Campbell MD PCP: Dr. Ryley Jeter MD Status:ADM IN Location: ICU ICU04-1 Subjective Subjective Has not been able to obtain records from [place] for his catheterization within the past 2 [...] (Auto) 90.4 H, Lymph % (Auto) 4.9L, [place] % (Auto) 4.0, Eos % (Auto) 0.0, [...] 90.4 H, Lymph % (Auto) 4.9 L, [place] % (Auto) 4.0, Eos % (Auto) 0.0, [...] catheterization within the last 2 years at [place]. He also had 2 blockages that were [...] be willing to see him in the [facility] in 7to 10 days after discharge. Charges/Coding Visit Charges Inpatient E&M: 13612 Subs Hosp 04/04/25 1033 <Electronically signed by Breezy Campbell MD> Cosigner Signature (if applicable): CC: ~ Signed [facility] Work Phone: 1(261) 338-722206-04-2025 Progress note [facility] Medical Records Department [address] [place] [address] Progress Note - Cardiology 04/04/25 1028 MR#: [id number] Acct: [id number] Name: ENOC ARMANDO Rep #:[id number] : 1945 79 From: Breezy Campbell MD PCP: Dr. Ryley Jeter MD Status:ADM IN Location: ICU ICU04-1 Subjective Subjective Has not been able to obtain records from [place] for his catheterization within the past 2 [...] (Auto) 90.4 H, Lymph % (Auto) 4.9L, [place] % (Auto) 4.0, Eos % (Auto) 0.0, [...] 90.4 H, Lymph % (Auto) 4.9 L, [place] %(Auto) 4.0, Eos % (Auto) 0.0, Baso [...] catheterization within the last 2 years at [place]. He also had 2 blockages that were [...] be willing to see him in the [facility] in 7to 10 days after discharge. Charges/Coding Visit Charges Inpatient E&M: 95516 [facility] Hosp 04/04/25 1035 Cosigner Signature (if applicable): CC: ~ Signed [facility]06-03-2025 Progress note Author Grace [facility] Note Date/Time April 03, 2025 5:08p m [facility] Medical Records Department [address] [place] [address] Progress Note 04/03/25 1352 MR#: [id number] Acct: [id number] Name: ENOC ARMANDO Rep #:[id number] : 1945 79 From: Grace Arnold MD [...] 04/03/25 12:00 04/03/25 12:54 04/03/25 12:00 04/03/25 12:04/03/25 09:36 FiO2 30 04/03/25 12:00 Oxygen Flow [...] 76.4 H, Lymph % (Auto) 13.5 L, [place] % (Auto) 7.0, Eos % (Auto) 1.9, [...] (Auto) 94.8 H, Lymph % (Auto) 3.3L, [place] % (Auto) 1.1, Eos % (Auto) 0.0, [...] congestion and/or pneumonia. [facility] Chest CTA 04/03/25 02:34 IMPRESSION: Mild bilateral [...] 32 mins Charges/Coding Visit Charges Inpatient E&M: 04201 PROLNG IP/OBS E/M EA 15 MIN 04/03/25 [...] Signature (if applicable): Date cc: ~* Signed [facility] Work Phone: [phone]) [phone] Consult note Author Breezy Campbell [facility] Note Date/Time April 03, 2025 4:52p m [facility] Medical Records Department [address] [place] [address] Consultation - Cardiology 04/03/25 1630 MR#: [id number] Acct: [id number] Name: ENOC ARMANDO Rep #:[id number] : 1945 79 From: Breezy Campbell MD [...] left heart catheterization a year ago in [place] we will try to obtain those records [...] I will try to obtain records from [place] to see if this is new but [...] Will try to obtain cardiovascular records from [place] from last year. 2. Continue current medical therapy. 3. Will follow along with you as the patient recovers from his pulmonary insufficiency we may need to alter his cardiovascular medical therapy. 4. The patient does not routinely see a greenbelt by his report. 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 The patient specifically denies any chest pain. He denies any lower extremity edema. The patient's complaint was really dyspnea on exertion. He is now beingtreated with IV antibiotics and ventilatory support. The patient is DNR CCA. [facility] Medical History (Updated 04/03/25 @ 16:49 by [...] AdvReac Other Verified 04/03/25 00:16 (Glucocorticoids) (steroids) Oumjrwo-BII-UjW Reductase AdvReac Other Verified 04/03/25 00:16 Inhibitor (Prlecxz-Dgk-Jnb Reductase Inhibitor) Family History Mother COPD (chronic [...] 20% Risk Charges/Coding Visit Charges Inpatient E&M: 84754 Init Hosp L3 Objective Data Vital Signs: [...] 76.4 H, Lymph % (Auto) 13.5 L, [place] % (Auto) 7.0, Eos % (Auto) 1.9, [...] (Auto) 94.8 H, Lymph % (Auto) 3.3L, [place] % (Auto) 1.1, Eos % (Auto) 0.0, [...] 76.4 H, Lymph % (Auto) 13.5 L, [place] % (Auto) 7.0, Eos % (Auto) 1.9, Baso % (Auto) 0.6, Absolute Neuts (auto) 12.0 H, Nucleated RBC % 0, PT 13.4, INR 1.0,APTT 37.3 H, D-Dimer Quant (PE/DVT) 1.86 H*, Sodium 139, Potassium 4.4, Tziftxxp931, Carbon Dioxide 20.8 L, Anion Gap 14, [...] 94.8 H, Lymph % (Auto) 3.3 L, [place] % (Auto) 1.1, Eos % (Auto) 0.0, [...] possibly multifocal congestion and/or pneumonia. [facility] Chest CTA 04/03/25 02:34 IMPRESSION: Mild bilateral [...] By: Fiordaliza Edgar RDCS and Student 04/03/25 1008 <Electronically signed by Breezy Campbell MD> Cosigner Signature (if applicable): CC: Dr. Ryley Jeter MD~ Signed [facility] Work Phone: [phone]) 591-664706-03-2025 Progress note [facility] Medical Records Department [address] [place] [address] Progress Note 04/03/25 1352 MR#: [id number] Acct: [id number] Name: ENOC ARMANDO Rep #:[id number] : 1945 79 From: Grace Arnold MD [...] 76.4 H, Lymph % (Auto) 13.5 L, [place] % (Auto) 7.0, Eos % (Auto) 1.9, Baso % (Auto) 0.6, Absolute Neuts (auto) 12.0 H, Absolute Lymphs (auto) 2.12, Nucleated RBC % 0, PT 13.4, INR 1.0,APTT 37.3 H, D-Dimer Quant (PE/DVT) 1.86 H*, Sodium 139, Potassium 4.4,Chloride 104, Carbon Cnpvgym08.8 L, Anion Gap 14, BUN 42 H, [...] (Auto) 94.8 H, Lymph % (Auto) 3.3L, [place] % (Auto) 1.1, Eos % (Auto) 0.0, [...] possibly multifocal congestion and/or pneumonia. Reading Location: [place] [address] Chest CTA 04/03/25 02:34 IMPRESSION: Mild bilateral pleural effusions. Passive atelectatic airspace disease/airspace consolidations of the lower lobes. Bilateral chronic perihilar interstitial pulmonary thickening with associated mild multifocal ground-glass densities, possibly superimposed pneumonia. Mild diffuse spondylosis. No CT evidence of pulmonary embolus or aortic dissection. Reading [facility] Echocardiogram 04/03/25 05:55 Interpretation Summary Mid to [...] 32 mins Charges/Coding Visit Charges Inpatient E&M: 48602 PROLNG IP/OBS E/M EA 15 MIN 04/03/25 [...] Signature (if applicable): Date cc: ~* Signed [facility]06-03-2025 Consult note [facility] Medical Records Department [address] [place] [address] Consultation - Cardiology 04/03/25 1630 MR#: [id number] Acct: [id number] Name: ENOC ARMANDO Rep #:[id number] : 1945 79 From: Breezy Campbell MD [...] left heart catheterization a year ago in [place] we will try to obtain those records [...] I will try to obtain records from [place] to see if this is new but [...] Will try to obtain cardiovascular records from [place] from last year. 2. Continue current medical therapy. 3. Will follow along with you as the patient recovers from his pulmonary insufficiency we may need to alter his cardiovascular medical therapy. 4. The patient does not routinely see a greenbelt by his report. 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 The patient specifically denies any chest pain. He denies any lower extremity edema. The patient's complaint was really dyspnea on exertion. He is now beingtreated with IV antibiotics and ventilatorysupport. The patient is DNR CCA. [facility] Medical History (Updated 04/03/25 @ 16:49 by [...] AdvReac Other Verified 04/03/25 00:16 (Glucocorticoids) (steroids) Rcmrxzd-IKK-HtE Reductase AdvReac Other Verified 04/03/25 00:16 Inhibitor (Qadmtoz-Zat-Vwg Reductase Inhibitor) Family History Mother COPD (chronic [...] 20% Risk Charges/Coding Visit Charges Inpatient E&M: 88654 Init Hosp L3 Objective Data Vital Signs: [...] 76.4 H, Lymph % (Auto) 13.5 L, [place] % (Auto) 7.0, Eos % (Auto) 1.9, Baso % (Auto) 0.6, Absolute Neuts (auto) 12.0 H, Absolute Lymphs (auto) 2.12, Nucleated RBC % 0, PT 13.4, INR 1.0,APTT 37.3 H, D-Dimer Quant (PE/DVT) 1.86 H*, Sodium 139, Potassium 4.4,Chloride 104, Carbon Pyocifp74.8 L, Anion Gap 14, BUN 42 H, [...] (Auto) 94.8 H, Lymph % (Auto) 3.3L, [place] % (Auto) 1.1, Eos % (Auto) 0.0, [...] 76.4 H, Lymph % (Auto) 13.5 L, [place] % (Auto) 7.0, Eos % (Auto) 1.9, Baso % (Auto) 0.6, Absolute Neuts (auto) 12.0 H, Nucleated RBC %0, PT 13.4, INR 1.0,APTT 37.3 H, D-Dimer Quant (PE/DVT) 1.86 H*, Sodium 139, Potassium 4.4, Sebiuvam735, Carbon Dioxide 20.8 L, Anion Gap 14, [...] 94.8 H, Lymph % (Auto) 3.3 L, [place] %(Auto) 1.1, Eos % (Auto) 0.0, Baso [...] possibly multifocal congestion and/or pneumonia. Reading Location: [place] [address] Chest CTA 04/03/25 02:34 IMPRESSION: Mild bilateral pleural effusions. Passive atelectatic airspace disease/airspace consolidations of the lower lobes. Bilateral chronic perihilar interstitial pulmonary thickening with associated mild multifocal ground-glass densities, possibly superimposed pneumonia. Mild diffuse spondylosis. No CT evidence of pulmonary embolus or aortic dissection. Reading Location: [place] [address] Echocardiogram 04/03/25 05:55 Interpretation Summary Mid to [...] applicable): CC: Dr. Ryley Jeter MD~ Signed [facility]06-03-2025 Consult note Author Landry Fagan [facility] Note Date/Time April 03, 2025 9:04a [facility] Medical Records Department [address] [place] [address] Consultation - Licensing Worker 04/03/25 0850 MR#: [id number] Acct: [id number] Name: ARMANDOENOC Ariela Rep #:[id number] : 1945 79 From: Landry Fagan DO [...] without intubation This note was generated with [employer] dictation software. It may contain incorrectwords, spelling, [...] he has never been evaluated by a candle molder machine or completed pulmonary function studies. Therefore, it [...] to be a DNR CCA without intubation. [facility] Medical History Chronic anemia Tobacco use COPD [...] release 24 hr blood sugar diagnostic (Contour 11/12/24 Unknown Hist ory Next Test Strips) potassium chloride 20 mEq 20 meq PO BIDCM 30 days #60 tabs 09/14/24 Unknown Rx tablet,extended release(part/cryst) furosemide 40 mg tablet (Lasix) 40 mg PO DAILY 5 Unknown History hydralazine 50 mg tablet 50 mg PO Q8H 04/03/25 Unknow n History Allergy/AdvReac Type Severity Reaction Status Date / Time Corticosteroids AdvReac Other Verified 04/03/25 00:16 (Glucocorticoids) (steroids) Sgpveaf-UCH-FqS Reductase AdvReac Other Verified 04/03/25 00:16 Inhibitor (Jsnmpoj-Ymg-Uxk Reductase Inhibitor) Family History Mother COPD (chronic [...] 76.4 H, Lymph % (Auto) 13.5 L, [place] % (Auto) 7.0, Eos % (Auto) 1.9, [...] (Auto) 94.8 H, Lymph % (Auto) 3.3L, [place] % (Auto) 1.1, Eos % (Auto) 0.0, [...] possibly multifocal congestion and/or pneumonia. Reading Location: [place] [address] Chest CTA 04/03/25 02:34 IMPRESSION: Mild bilateral pleural effusions. Passive atelectatic airspace disease/airspace consolidations of the lower lobes. Bilateral chronic perihilar interstitial pulmonary thickening with associated mild multifocal ground-glass densities, possibly superimposed pneumonia. Mild diffuse spondylosis. No CT evidence of pulmonary embolus or aortic dissection. Reading Location: [place] [address] Charges/Coding Visit Charges Inpatient E&M: 36951 Init Hosp L3 04/03/25 0904 <Electronically signed by Landry Fagan DO> Cosigner Signature (if applicable): CC: Dr. Ryley Jeter MD~ Signed [facility] Work Phone: 1(900) 221-255306-03-2025 Consult note [facility] Medical Records Department [address] [place] [address] Consultation - Licensing Worker 04/03/25 0850 MR#: [id number] Acct: [id number] Name: ENOC ARMANDO Rep #:[id number] : 1945 79 From: Landry Fagan DO [...] without intubation This note was generated with Typo Keyboards dictation software. It may contain incorrectwords, spelling, [...] he has never been evaluated by a candle molder machine or completed pulmonary function studies. Therefore, it is unknown if the patient has underlying obstructive lung disease. He does not utilize any inhalers at his [facility]. On presentation to the emergency [...] morning to be a DNR CCA withoutintubation. [facility] Medical History Chronic anemia Tobacco use COPD [...] AdvReac Other Verified 04/03/25 00:16 (Glucocorticoids) (steroids) Pcnxibz-UCP-DlP Reductase AdvReac Other Verified 04/03/25 00:16 Inhibitor (Gaqbfqb-Igf-Nrh Reductase Inhibitor) Family History Mother COPD (chronic [...] 76.4 H, Lymph % (Auto) 13.5 L, [place] % (Auto) 7.0, Eos % (Auto) 1.9, Baso % (Auto) 0.6, Absolute Neuts (auto) 12.0 H, Absolute Lymphs (auto) 2.12, Nucleated RBC % 0, PT 13.4, INR 1.0,APTT 37.3 H, D-Dimer Quant (PE/DVT) 1.86 H*, Sodium 139, Potassium 4.4,Chloride 104, Carbon Xowcimy53.8 L, Anion Gap 14, BUN 42 H, [...] (Auto) 94.8 H, Lymph % (Auto) 3.3L, [place] % (Auto) 1.1, Eos % (Auto) 0.0, [...] congestion and/or pneumonia. Reading [facility] Chest CTA 04/03/25 02:34 IMPRESSION: Mild bilateral pleural effusions. Passive atelectatic airspace disease/airspace consolidations of the lower lobes. Bilateral chronic perihilar interstitial pulmonary thickening with associated mild multifocal ground-glass densities, possibly superimposed pneumonia. Mild diffuse spondylosis. No CT evidence of pulmonary embolus or aortic dissection. Reading Location: [facility] Charges/Coding Visit Charges Inpatient E&M: 40035 Init Hosp L3 04/03/25 0904 Cosigner Signature (if applicable): CC: Dr. Ryley Jeter MD~ Signed [facility]06-03-2025 History and physical note Author Dyana Hwang [facility] Note Date/Time April 03, 2025 4:42a m [facility] Medical Records Department [address] [place] [address] H&P Exam - Hospitalist 04/03/25 0402 MR#: [id number] Acct: [id number] Name: ENOC ARMANDO Rep #:[id number] : 1945 79 From: Dyana Hwang MD [...] pathology, Tobacco use who presents to the [facility] ED on 04/03/2025 with history of worsening [...] x 1 and sublingual nitroglycerin x 1. [facility] Medical History (Updated 04/03/25 @ 04:40 by [...] AdvReac Other Verified 04/03/25 00:16 (Glucocorticoids) (steroids) Krhesmo-SPH-ExF Reductase AdvReac Other Verified 04/03/25 00:16 Inhibitor (Qfqubor-Bbo-Qkn Reductase Inhibitor) Family History (Updated 04/03/25 @ 04:[address] Dyana Hwang MD) Mother COPD (chronic obstructive pulmonary disease) Father CAD (coronary artery disease) Heart disease Surgical History Hx of cystoscopy Hx of colonoscopy Hx of left cataract extraction Hx of right cataract extraction Social History (Updated 04/03/25 @ 04:[address] Dyaan Hwang MD) household members: spouse Smoking Status: [...] 76.4 H, Lymph % (Auto) 13.5 L, [place] % (Auto) 7.0, Eos % (Auto) 1.9, [...] possibly multifocal congestion and/or pneumonia. Reading Location: [place] [address] Chest CTA 04/03/25 02:34 IMPRESSION: Mild bilateral pleural effusions. Passive atelectatic airspace disease/airspace consolidations of the lower lobes. Bilateral chronic perihilar interstitial pulmonary thickening with associated mild multifocal ground-glass densities, possibly superimposed pneumonia. Mild diffuse spondylosis. No CT evidence of pulmonary embolus or aortic dissection. Reading Location: [place] [address] Assessment & Plan Assessment/Plan (1) Acute hypoxic respiratory failure: PLAN: Plan The patient is an 79 y/o M w/ PMHx: CKD stage III unclear subtype per GFR trending, Chronic macrocytic anemia, HTN, HLD, Diabetes mellitus type II, BPH with obstructive pathology, Tobacco use who presents to the [facility] ED on 04/03/2025 with history of worsening [...] 16 minutes. Charges/Coding Visit Charges Inpatient E&M: 73071 Init Hosp L3 Procedures Hospitalists Procedures: 36325 Advncd Care Plan 30 Min 04/03/25 0442 <Electronically signed by Dyana Hwang MD> Cosigner Signature (if applicable): CC: Dr. Dyana Hwang MD; Dr. Ryley Jeter MD~ Signed [facility] Work Phone: 1([phone]) 650-245906-03-2025 Evaluation note* Diagnosis Onset Date Resolution Status Admit Date Acute hypoxic respiratory failure ac gui April 03, 2025 4:16am MADONNA (acute kidney injury) acute April 03, 2025 4:16am Anemia acute April 03, 2025 4:16am Bradycardia acute April 03 4:16am LV dysfunction acute April 03, 2025 4:16am Non-STEMI (non-ST elevated myocardial infarction) acute April 03, 2025 4:16am CKD (chronic kidney disease) , stage III chronic April 03, 2025 4 :16am HTN (hypertension) chronic April 032024 4:16am [facility] Work Phone: 1(843) 782-839306-03-2025 Evaluation note* Diagnosis Onset Date Resolution Status [...] 3:06am COPD exacerbation chronic April 192024 3:06am [facility] Work Phone: 1(545) 441-799306-03-2025 Evaluation note* Diagnosis Onset Date Resolution Status [...] 3:06am COPD exacerbation chronic April 192024 3:06am [facility] Work Phone: [phone]) 874-653406-03-2025 Evaluation note* Diagnosis Onset Date Resolution Status [...] 03, 2025 4:16am Acute hypoxic respiratory failure resolved April 19, 2025 3:06am MADONNA (acute kidney injury) resolved April 19, 2025 3:06am CHF exacerbation resolved April 3:06am COPD exacerbation resolved April 192024 3:06am Elevated d-dimer resolved April 3:06am Generalized weakness resolved April 19, 2025 3:06am Hyperglycemia due to type 2 diabetes mellitus resolved April 19 3:06am Hyperkalemia resolved April 19, 2 025 3:06am Lactic acidosis resolved April 3:06am Leukocytosis resolved April 19, 2 025 3:06am ASCVD (arteriosclerotic cardiovascular disease) inactive April 3:06am CKD (chronic kidney disease) stage 3, GFR 30-59 ml/min inactive April 012024 3:06am CKD (chronic kidney disease) , stage IV inactive April 19, 2025 3:06am HFrEF (heart failure with reduced ejection fraction) inactive April 19, 2025 3:06am Acute on chronic hypoxic respiratory failure chronic May 05 10:01pm CHF exacerbation chronic May 10:01pm Chronic kidney disease chronic Ju 2024 10:01pm COPD (chronic obstructive pulmonary disease) chronic May 05 10:01pm Hypertension chronic May 05 10:01pm [facility] Work Phone: [phone]) 150-645906-03-2025 Evaluation note* Diagnosis Onset Date Resolution Status Admit Date MADONNA (acute kidney injury) acute April 03, 2025 4:16am Acute hypoxic respiratory failure resolved April 03, 2025 4 :16am Anemia inactive April 03, 2025 4:16am Bradycardia inactive April 03 4:16am CKD (chronic kidney disease) , stage III inactive April 03, 2025 4 :16am HTN (hypertension) inactive April 032024 4:16am LV dysfunction inactive April 03, 2025 4:16am Non-STEMI (non-ST elevated myocardial infarction) inactive April 03, 2025 4:16am Acute hypoxic respiratory failure resolved April 19, 2025 3:06am MADONNA (acute kidney injury) resolved April 19, 2025 3:06am CHF exacerbation resolved April 3:06am COPD exacerbation resolved April 192024 3:06am Elevated d-dimer resolved April 3:06am Generalized weakness resolved April 19, 2025 3:06am Hyperglycemia due to type 2 diabetes mellitus resolved April 19 3:06am Hyperkalemia resolved April 19, 025 3:06am Lactic acidosis resolved April 3:06am Leukocytosis resolved April 19, 2 025 3:06am ASCVD (arteriosclerotic cardiovascular disease) inactive April 3:06am CKD (chronic kidney disease) stage 3, GFR 30-59 ml/min inactive April 012024 3:06am CKD (chronic kidney disease) , stage IV inactive April 19, 2025 3:06am HFrEF (heart failure with reduced ejection fraction) inactive April 19, 2025 3:06am MADONNA (acute kidney injury) acute May 05, 2025 10:01pm Diabetes mellitus, type 2 acute May 05, 2025 10:01pm Elevated troponin acute May 10:01pm Leukocytosis acute May 05 10:01pm Mild pulmonary hypertension acute May 05, 2025 10:01pm Mitral valve insufficiency acute May 05, 2025 10:01pm Pneumonia acute May 05, 2025 10:01pm Acute on chronic HFrEF (hear t failure with reduced ejection fraction) chronic May 05, 2025 1 0:01pm Acute on chronic hypoxic respiratory failure chronic May 05 10:01pm CHF exacerbation chronic May 10:01pm Chronic kidney disease chronic Ju 2024 10:01pm COPD (chronic obstructive pulmonary disease) chronic May 05 10:01pm COPD exacerbation chronic May 10:01pm Hypertension chronic May 05 10:01pm CKD (chronic kidney disease) , stage IV inactive May 05, 2025 1 0:01pm [facility] Work Phone: 1([phone]) 373-509706-03-2025 Discharge summary Author John Brandon [facility] Note Date/Time April 03, 2025 4:11a m [facility] Health System Medical Records Department [address] [place] [address] Emergency Department Summary 04/03/25 MR#: [id number] Acct: [id number] Name: ENOC ARMANDO Rep #:[id number] : 1945 79 From: John Ramirez PCP: Dr. Ryley Jeter MD Status:REG ER Location: ED HPI History of Present Illness Chief Complaint: Shortness of Breath PFSH [facility] Medical History Pneumonia COVID Wears glasses Wears [...] AdvReac Other Verified 04/03/25 00:16 (Glucocorticoids) (steroids) Odanvtn-Kjv-Pze Reductase AdvReac Other Verified 04/03/25 00:16 Inhibitor [...] (L/min) 4 Fraction of Inspired Oxygen (FIO2) [facility] Narrative Medical decision making narrative: HISTORY OF [...] Consults: internal medicine only sees Dr. Hwang) [facility] Narrative: The patient was initially tachycardic, tachypneic, [...] to ICU This note was generated with Typo Keyboards dictation software. It may contain incorrectwords, spelling, [...] 76.4 H Lymph % (Auto) 13.5 L [place] % (Auto) 7.0 Eos % (Auto) 1.9 [...] possibly multifocal congestion and/or pneumonia. Reading Location: [place] [address] Discharge Plan Triage Chief Complaint: Shortness of [...] MD [Primary Care Provider] - Print Language: Palauan What to do if you have Problems For any increased pain, shortness of breath, bleeding, nausea or vomiting, chestpain, or any unexpected problems, contact your Primary Care Provider. Call [facility] ([phone]) or report to the closest Emergency Room. Call 911 if necessary. 04/03/25410 <Electronically signed by John Brandon DO> Cosigner Signature (if applicable): CC: Dr. Ryley Jeter MD ~ Signed [facility] Work Phone: 1([phone]) 741-556306-03-2025 History and physical note [facility] Medical Records Department [address] [place] [address] H&P Exam - Hospitalist 04/03/25 0402 MR#: [id number] Acct: [id number] Name: ENOC ARMANDO Rep #:[id number] : 1945 79 From: Dyana Hwang MD PCP: Dr. Ryley Jeter MD Status:ADM IN [facility]: [facility] HPI - General General Date of Admission: 04/03/25 Date of Service: 04/03/25 Chief Complaint: Dyspnea. HPI Narrative The patient is an 79 y/o M w/ PMHx: CKD stage III unclear subtype per GFR trending, Chronic macrocytic anemia, HTN, HLD, Diabetes mellitus type II, BPH with obstructive pathology, Tobacco use who presents to the [facility] ED on 04/03/2025 with history of worsening [...] x 1 and sublingual nitroglycerin x 1. [facility] Medical History (Updated 04/03/25 @ 04:40 by [...] AdvReac Other Verified 04/03/25 00:16 (Glucocorticoids) (steroids) Ydffaal-KQK-KfK Reductase AdvReac Other Verified 04/03/25 00:16 Inhibitor (Hjagtrb-Xdd-Pmy Reductase Inhibitor) Family History (Updated 04/03/25 @ [...] 76.4 H, Lymph % (Auto) 13.5 L, [place] % (Auto) 7.0, Eos % (Auto) 1.9, [...] possibly multifocal congestion and/or pneumonia. Reading Location: [place] [address] Chest CTA 04/03/25 02:34 IMPRESSION: Mild bilateral pleural effusions. Passive atelectatic airspace disease/airspace consolidations of the lower lobes. Bilateral chronic perihilar interstitial pulmonary thickening with associated mild multifocal ground-glass densities, possibly superimposed pneumonia. Mild diffuse spondylosis. No CT evidence of pulmonary embolus or aortic dissection. Reading Location: [place] [address] Assessment & Plan Assessment/Plan (1) Acute hypoxic respiratory failure: PLAN: Plan The patient is an 79 y/o M w/ PMHx: CKD stage III unclear subtype per GFR trending, Chronic macrocytic anemia, HTN, HLD, Diabetes mellitus type II, BPH with obstructive pathology, Tobacco use who presents to the [facility] ED on 04/03/2025 with history of worsening [...] noted #2: Will admit to ICU, teresa marshall on BIPAP, ABG requested, will consult ICU [...] any pulmonary embolus or aortic dissection, initial [id number] repeat delta troponin 76. Will maintain on [...] 16 minutes. Charges/Coding Visit Charges Inpatient E&M: 37773 Init Hosp L3 Procedures Hospitalists Procedures: 70209 Advncd Care Plan 30 Min 04/03/25 0442 Cosigner Signature (if applicable): CC: Dr. Dyana Hwang MD; Dr. Ryley Jeter MD~ Signed [facility]06-03-2025 Discharge summary [facility] Medical Records Department [address] [place] [address] Emergency Department Summary 04/03/25 MR#: [id number] Acct: [id number] Name: ENOC ARMANDO Rep #:[id number] : 1945 79 From: John Ramirez PCP: Dr. Ryley Jeter MD Status:REG ER Location: ED HPI History of Present Illness Chief Complaint: [facility] Bre[facility] Medical History Pneumonia COVID Wears glasses Wears [...] AdvReac Other Verified 04/03/25 00:16 (Glucocorticoids) (steroids) Cmidtld-Ije-Nuz Reductase AdvReac Other Verified 04/03/25 00:16 Inhibitor [...] Consults: internal medicine only sees Dr. Hwang) [facility] Narrative: The patient was initially tachycardic, tachypneic, [...] to ICU This note was generated with Typo Keyboards dictation software. It may contain incorrectwords, spelling, [...] 76.4 H Lymph % (Auto) 13.5 L [place] % (Auto) 7.0 Eos % (Auto) 1.9 [...] possibly multifocal congestion and/or pneumonia. Reading Location: [place] [address] Discharge Plan Triage Chief Complaint: Shortness of [...] MD [Primary Care Provider] - Print Language: Palauan What to do if you have Problems For any increased pain, shortness of breath, bleeding, nausea or vomiting, chestpain, or any unexpected problems, contact your Primary Care Provider. Call [facility] ([phone]) or report tothe closest Emergency Room. Call 911 if necessary. 04/03/25 0419 Cosigner Signature (if applicable): CC: Dr. Ryley Jeter MD ~ Signed [facility]06-03-2025 Radiology Diagnostic study note [facility] Imaging Services [address] [place] [address] CTA Chest W/WO Contrast MR#: [id number] Acct: [id number] Name: ENOC ARMANDO Rep #: [id number] : 1945 M 79 From: Darcy Reese MD PCP: Dr. Ryley Jeter MD Status: REG ER Study:CTA Chest W/WO Contrast Date of Exam: 04/03/25 Exam# [id number] Ordering Dr: Mine Brandon DO PROCEDURE: CTA [...] or aortic dissection. Reading Location[facility] CC: Dr. Ryley Jeter MD; Dr. John Brandon DO ~ Commercial Field Inspector: Signed [facility]06-03-2025 Radiology Diagnostic study note [facility] Imaging Services [address] [place], [place] [address] Chest 1 View (Portable) MR#: [id number] Acct: [id number] Name: ENOC ARMANDO Rep #: [id number] : 1945 M 79 From: Darcy Reese MD PCP: Dr. Ryley Jeter MD Status: REG ER Study:Chest 1 View (Portable) Date of Exam: 04/03/25 Exam# [id number] Ordering Dr: Mine Brandon DO PROCEDURE: CHEST [...] possibly multifocal congestion and/or pneumonia. Reading Location: [facility] CC: Dr. Ryley Jeetr MD; Dr. John Brandon DO ~ Commercial Field Inspector: Signed [facility]05-27-2025 Telephone encounter Note* Telephone Encounter - Ej Guidry MA - 03/27/2025 1:23 PM EDT Called pt's Alice with lab results per Dr. Small. Alice verbalized understanding and had no further questions. [id number] Miscellaneous Notes* Telephone Encounter - Ej Guidry [...] To: Woo Small MD documented in this [id number] Telephone encounter Note* Telephone Encounter - Ej Guidry MA - 03/27/2025 10:50 AM EDT Left voicemail asking for pt to call back to go over lab results per Dr. Small. Given phone number tocall back. [id number] Telephone encounter Note* Telephone Encounter - Ej [...] 7:18 AM EDT To: Woo Small MD [id number] NotePatient ID: Enoc Armando is a 79 [...] being taken. Patient does not see a ballistics tester. Eye exam is current. Currently taking: No [...] medications, past family his (more content not included)...[facility]05-12-2025 History of Present illness Narrative* Paty Ortega, [facility] - 03/12/2025 1:50 PM EDT Images from [...] being taken. Patient does not see a ballistics tester. Eye exam is current. Currently taking: No [...] if BG <150 at HS. 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 Had bilat cataract extraction Dr. Lopez. Sees Dr. Browne in [place] every year routinely.Has blurred vision with low [...] Call if BG consistently <70 or >250. [phone] Continue to check blood sugar 3 times [...] CNP 03/12/25 1:21 PM documented in this [id number] NoteGeneral Cardiology New Patient Clinic Consult [facility] 03/09/2025 Woo Small MD [facility] [address] 3rd Floor Medical Office [facility] [address] Patient: Enoc Armando Date [...] to be ischemic Coronary 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 (Primary) Patient underwent [...] No follow-ups on file. Woo Small MD, FACC Non-Invasive Cardiology [facility] P:[phone] F:[phone] History of Present Illness: Enoc Armando is a 79 y.o. man with a past medical history of insulin-dependent diabetes for 30 years, history of tobacco use, recent COVID infection with systolic dysfunction ejection fraction ranging from 35 to 45% who presented initially to [facility] care. He underwent stress testing which showed inferior wall abnormality as well as ejection fraction of 50%. I initially met with him back in January 2024 and he was doing quite well, however he presented in October with symptoms of fatigue, malaise, flash pulmonary edema and hypertensive emergency with reduced ejection fraction at [facility] 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 Tobacco abuse Past Surgical History: Procedure Laterality Date CATARACT EXT/ECCE Bilateral 12/2012,07/2014 OR CATH PLMT L HRT & ARTS W/NJX & ANGIO IMG S&I N/A 10/27/2024 Procedure: Coronary Angiogram; Surgeon: Elías Rodriguez MD; Location: HYBRID TEAM LEADER/RESEARCH PSYCHOLOGIST; Service: Cardiovascular OR CATH PLMT L HRT & ARTS W/NJX & ANGIO IMG S&I N/A 10/27/2024 Procedure: Left Heart Cath; Surgeon: Elías Rodriguez MD; Location: HYBRID TEAM LEADER/RESEARCH PSYCHOLOGIST; Service: Cardiovascular SKIN CANCER EXCISION 09/2021 L ear Family History Problem Relation Age of Onset Coronary artery disease Father Alzheimer's disease Father Social History Tobacco Use Smoking Statu (more content not included)...[facility] [id number] History of Present illness Narrative* Woo Small MD - 03/09/2025 9:39 AM EDT General Cardiology New Patient Clinic Consult [facility] 03/09/2025 Woo Small MD [address] [place] [address] 3rd Floor Medical Office [facility] [address] Patient: Enoc Armando Date [...] to be ischemic Coronary 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 (Primary) Patient underwent [...] No follow-ups on file. Woo Small MD, [facility] Non-Invasive Cardiology [facility] P:[phone] F:[phone] History of Present Illness: Enoc Armando is a 79 y.o. man with a past medical history of insulin-dependent diabetes for 30 years, history of tobacco use, recent COVID infection with systolic dysfunction ejection fraction ranging from 35 to 45% who presented initially to [facility] care. He underwent stress testing which showedinferior wall abnormality as well as ejection fraction of 50%. I initially met with him back in January 2024 and he was doing quite well, however he presented in October with symptoms of fatigue, malaise, flash pulmonary edema and hypertensive emergency with reduced ejection fraction at [facility] Left heart catheterization was ultimately recommended which [...] Procedure Laterality Date CATARACT EXT/ECCE Bilateral 12/2012,07/2014 OR CATH PLMT L HRT & ARTS W/NJX & ANGIO IMG S&I N/A 10/27/2024 Procedure: Coronary Angiogram; Surgeon: Elías Rodriguez MD; Location: HYBRID TEAM LEADER/RESEARCH PSYCHOLOGIST;Service: Cardiovascular OR CATH PLMT L HRT & ARTS W/NJX & ANGIO IMG S&I N/A 10/27/2024 Procedure: Left Heart Cath; Surgeon: Elías Rodriguez MD; Location: HYBRID TEAM LEADER/RESEARCH PSYCHOLOGIST; Service: Cardiovascular SKIN CANCER EXCISION 09/2021 L ear Family History Problem Relation Age of Onset Coronary artery disease Father Alzheimer's disease Father Social History Tobacco Use Smoking Status Every Day Current packs/day: 0.50 Average packs/day: 0.5 packs/day for 61.4 years (30.7 ttl pk-yrs) Types: Cigarettes Start date: 1965 Smokeless Tobacco Never Allergies: Zezdqlg-aqx-gjy reductase inhibitors All of the information has [...] 3 tablet, Rfl: 3 [facility]XYGEN-[facility]IR [facility] Inh[place] 2 L/min See Admin Instructions [...] mood and affect, appropriate conversation Cardiovascular Studies: [facility] 2024 Echo 2023 Carotids 2024 [...] arterial duplex was normal Echocardiogram reviewed from [facility], 10/11/2023 moderately decreased ejection fraction estimated at [...] BILITOT 0.3 10/27/2024 The ASCVD Risk score (Jupiter DK, et al., 2019) failed to calculate for the following reasons: The 2019 ASCVD risk score is only valid for ages 40 to 79 Risk score cannot be calculated because patient has a medical history suggesting prior/existing ASCVD documented in this [id number] Instructions* Patient Instructions* Woo Small MD - 03/09/2025 7:56 AM EDT How to Contact your Care Team: Provider: Dr. Woo Small MD Clinic Nurse: [facility] MA: SUSAN Pagan REFILLS: When in need for refills please call your care team or the office at [phone]. Please include medication name, pharmacy name, and [...] work in 2 weeks documented in this [id number] NoteS DISCHARGE SUMMARY -- [facility] Enoc Armando : 1945 Admitted: 02/28/2025 Discharge Date: 03/05/25 PCP Handoff Recommended Outpatient Testing None Results Pending At Discharge None Clinical Summary Enoc Armando is a 79 y.o. male patient of Ryley Jeter MD with history of type I IDDM, hypertension, CAD, diastolic HF, dyslipidemia, COPD, CKD presented to [facility] on 02/28/2025 with shortness of [...] daily . (more content not included)...[facility]05-04-2025 NoteHMS PROGRESS NOTE Patient Name: Enoc Armando : 1945 Assessment and Plan Enoc Armando is a 79 y.o. male patient of Ryley Jeter MD with history of type I IDDM, hypertension, CAD, diastolic HF, dyslipidemia, COPD, CKD presented to [facility] on 02/28/2025 with shortness of [...] affect AUTHENTICATED BY BERNADETTE PARNELL ON 03/04/2025 11:10:[address] [place] [address] 03-03-2025 NoteHMS PROGRESS NOTE Patient Name: Enoc Armando : 1945 Assessment and Plan Enoc Armando is a 79 y.o. male patient of Ryley Jeter MD with history of type I IDDM, hypertension, CAD, diastolic HF, dyslipidemia, COPD, CKD presented to [facility] on 02/28/2025 with shortness of [...] affect AUTHENTICATED BY BERNADETTE PARNELL, ON 03/03/2025 12:05:[address] [place] [address] 03-03-2025 NoteGeneral Cardiology Inpatient Follow-up Heart & Vascular [facility] 03/03/2025 Aparna Browne, [facility] Patient: Enoc Armando Date of : 1945 (79 y.o.) PCP: Ryley Jeter MD Primary [place]: Assessment/Plan: Enoc Armando is a 79 y.o. [...] Final Result by Elías Rodriguez MD (10/27/2024 0943) Review of Systems: The following system(s) were [...] dictation software was used Aparna Browne MSN, CAPPING MACHINE OPERATOR, ANP-C [1] Current Facility-Administered Medications Medication Dose [...] Intravenous Con (more content not included)...[facility]05-02-2025 NoteHMS PROGRESS NOTE Patient Name: Enoc Armando : 1945 Assessment and Plan Enoc Armando is a 79 y.o. male patient of Ryley Jeter MD with history of type I IDDM, hypertension, CAD, diastolic HF, dyslipidemia, COPD, CKD presented to [facility] on 02/28/2025 with shortness of [...] affect AUTHENTICATED BY PEMA DUNBAR, ON 03/02/2025 13:48:[address] [place] [address] 03-01-2025 NoteHMS PROGRESS NOTE Patient Name: Enoc Armando : 1945 Assessment and Plan Enoc Armando is a 79 y.o. male patient of Ryley Jeter MD with history of type I IDDM, hypertension, CAD, diastolic HF, dyslipidemia, COPD, CKD presented to [facility] on 02/28/2025 with shortness of [...] affect AUTHENTICATED BY PEMA DUNBAR, ON 03/01/2025 12:52:[address] [place] [address] 02-28-2025 NoteHMS PROGRESS NOTE Patient Name: Enoc Armando : 1945 Assessment and Plan Enoc Armando is a 79 y.o. male patient of Ryley Jeter MD with history of type I IDDM, hypertension, CAD, diastolic HF, dyslipidemia, COPD, CKD presented to [facility] on 02/28/2025 with shortness of [...] affect AUTHENTICATED BY PEMA DUNBAR, ON 02/28/2025 13:04:55[facility] 02-28-2025 NoteHMS HISTORY AND PHYSICAL -- [facility] Patient Name: Enoc Armando : 1945 MR #: [id number] Admit Date: 02/28/2025 Physicians: Ryley Jeter MD (Family); No ref. provider found (Referring) Enoc Armando is a 79 y.o. male patient of Ryley Jeter MD with history of type I IDDM, hypertension, CAD, diastolic HF, dyslipidemia, COPD, CKD presented to [facility] on 02/28/2025 with shortness of [...] dyslipidemia, COPD, CKD presented to [facility] on 02/28/2025 with shortness of [...] Procedure Laterality Date CATARACT EXT/ECCE Bilateral 12/2012,07/2014 OR CATH PLMT L HRT & ARTS W/NJX & ANGIO IMG S&I N/A 10/27/2024 Procedure: Coronary Angiogram; Surgeon: Elías Rodriguez MD; Location: HYBRID TEAM LEADER/RESEARCH PSYCHOLOGIST; Service: Cardiovascular OR CATH PLMT L HRT & ARTS W/NJX & ANGIO IMG S&I N/A 10/27/2024 Procedure: Left Heart Cath; Surgeon: Elías Rodriguez MD; Location: HYBRID TEAM LEADER/RESEARCH PSYCHOLOGIST; Service: Cardiovascular SKIN CANCER EXCISION 09/2021 L ear Family History Family History Problem Relation Age of Onset Coronary artery disease Father Alzheimer's disease Father Social History Tobacco Use History[1] Social History Substance and Sexual Activity Alcohol Use No Alcohol/week: 0.0 standard drinks of alcohol Social History Substance and Sexual Activity Drug Use No Allergy Information I have reviewed the patient's allergies. Tzbbgdk-ivr-vul reductase inhibitors Home Medications Home medications were reviewed. Review Of Systems All relevant systems have been reviewed and are negative except as noted in HPI or below Physical Examination BP (!) 194/62 Pulse 97 Temp 97.8 degrees F (36.6 degrees C) (Oral) Resp (!) 22 Ht 5' 7 Wt 65.8 (more content not included)...[facility]04-28-2025 History of Present illness Narrative* Ayanna Albert, [...] DO 02/26/25 1:17 PM [facility] Work Phone: 1(799) 824-796904-16-2025 History of Present illness Narrative* Ej Guidry MA - 02/14/2025 11:02 AM EDT Refaxed letter written on 01/18/[address] Small to [facility]. documented in this [id number] Instructions* Patient Instructions* Luisa Easley RN - 11/14/2024 11:36 AM EST How to Contact your Care Team: Provider: Dr. Woo Small MD Clinic Nurse: FIDEL Moran Clinic MA: SUSAN Pagan REFILLS: When in need for refills please call your care team or the office at [phone]. Please include medication name, pharmacy name, and specify 30-day or 90-day supply. Please check with your pharmacy within 24 hours of request for your refill. You must follow up as directed to continue current refills. Thank you! documented in this [id number] History of Present illness Narrative* Woo Small MD - 11/14/2024 10:40 AM EST General Cardiology New Patient Clinic Consult [facility], Heart & Vascular 11/14/2024 Woo Small MD [address] [place] [phone] Patient: Enoc Armando Date of : 1945 (78 y.o.) PCP: Ryley Jeter MD Date of Service: 11/14/2024 Chief Complaint: Follow-up Assessment and Plan: 1. Coronary 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(Primary) Patient underwent left [...] 05/14/2025). Woo Small MD, FACC Non-Invasive Cardiology [facility] P:[phone] F:[phone] History of Present Illness: Enoc Armando is a 78 y.o. man with a past medical history of insulin-dependent diabetes for 30 years, history of tobacco use, recent COVID infection with systolic dysfunction ejection fraction ranging from 35 to 45% who presented initially to [facility] care. He underwent stress testing which showedinferior wall abnormality as well as ejection fraction of 50%. I initially met with him back in January 2024 and he was doing quite well, however he presented in October with symptoms of fatigue, malaise, flash pulmonary edema and hypertensive emergency with reduced ejection fraction at [facility] 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 Tobacco abuse Past Surgical History: Procedure Laterality Date CATARACT EXT/ECCE Bilateral 12/2012,07/2014 OR CATH PLMT L HRT & ARTS W/NJX & ANGIO IMG S&I N/A 10/27/2024 Procedure: Coronary Angiogram; Surgeon: Elías Rodriguez MD; Location: HYBRID TEAM LEADER/RESEARCH PSYCHOLOGIST;Service: Cardiovascular OR CATH PLMT L HRT & ARTS W/NJX & ANGIO IMG S&I N/A 10/27/2024 Procedure: Left Heart Cath; Surgeon: Elías Rodriguez MD; Location: HYBRID TEAM LEADER/RESEARCH PSYCHOLOGIST; Service: Cardiovascular SKIN CANCER EXCISION 09/2021 L ear Family History Problem Relation Age of Onset Coronary artery disease Father Alzheimer's disease Father Social History Tobacco Use Smoking Status Every Day Current packs/day: 0.50 Average packs/day: 0.5 packs/day for 61.0 years (30.5 ttl pk-yrs) Types: Cigarettes Start date: 1965 Smokeless Tobacco Never Allergies: Lvwpxsb-nhd-bhb reductase inhibitors All of the information has [...] 90 tablet, Rfl: 3 [facility] Inhale 2 L/min See Admin Instructions [...] mood and affect, appropriate conversation Cardiovascular Studies: [facility] 2024 Echo 2023 Carotids 2024 [...] arterial duplex was normal Echocardiogram reviewed from [facility], 10/11/2023 moderately decreased ejection fraction estimated at [...] history suggesting prior/existing ASCVD documented in this [id number] NoteGeneral Cardiology New Patient Clinic Consult [facility], Heart & Vascular 11/14/2024 Woo Small MD [address] [place] [phone] Patient: Enoc Armando Date of : 1945 (78 y.o.) PCP: Ryley Jeter MD Date of Service: 11/14/2024 Chief Complaint: Follow-up Assessment and Plan: 1. Coronary 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 (Primary) Patient underwent [...] 6 months (around 05/14/2025). Woo Small MD, [facility] Non-Invasive Cardiology [facility] P:[phone] F:[phone] History of Present Illness: Enoc Armando is a 78 y.o. man with a past medical history of insulin-dependent diabetes for 30 years, history of tobacco use, recent COVID infection with systolic dysfunction ejection fraction ranging from 35 to 45% who presented initially to [facility] care. He underwent stress testing which showed inferior wall abnormality as well as ejection fraction of 50%. I initially met with him back in January 2024 and he was doing quite well, however he presented in October with symptoms of fatigue, malaise, flash pulmonary edema and hypertensive emergency with reduced ejection fraction at [facility] 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 Tobacco abuse Past Surgical History: Procedure Laterality Date CATARACT EXT/ECCE Bilateral 12/2012,07/2014 OR CATH PLMT L HRT & ARTS W/NJX & ANGIO IMG S&I N/A 10/27/2024 Procedure: Coronary Angiogram; Surgeon: Elías Rodriguez MD; Location: HYBRID TEAM LEADER/RESEARCH PSYCHOLOGIST; Service: Cardiovascular OR CATH PLMT L HRT & ARTS W/NJX & ANGIO IMG S&I N/A 10/27/2024 Procedure: Left Heart Cath; Surgeon: Elías Rodriguez MD; Location: HYBRID TEAM LEADER/RESEARCH PSYCHOLOGIST; Service: Cardiovascular SKIN CANCER EXCISION 09/2021 L ear Family History Problem Relation Age of Onset Coronary artery disease Father Alzheimer's disease Father Social History Tobacco Use Smoking Status Every Day Current packs/day: 0.50 Average packs/day: 0.5 packs/day for 61.0 years (30.5 ttl pk-yrs) Types: Cigarettes Start date: 1965 Smokeless Tobacco Never Allergies: Xhikvov-bow-vdo reductase inhibitors All of the information has been reviewed at today's visit and modified if necessary. Home Medications: Current Outpatient Medications: acetaminophen (Tylenol Arthritis Pain) 650 MG CR tablet, Take 1 (one) tablet (650 mg total) by mouth every 8 (eight) hours as needed for pain ., (more content not included)...[facility] [id number] NotePatient ID: Enoc Armando is a 78 [...] IV insulin gtt. . Hospitalized in [facility]. Reports URI symptoms with ear lockage. [...] being taken. Patient does not see a ballistics tester. Eye exam is current. Currently taking: No [...] mouth daily . - [facility] Inhale 2 L/min See Admin Instructions [...] kg (148 lb) 01 (more content not included)...[facility]01-13-2025 History of Present illness Narrative* [...] IV insulin gtt. . Hospitalized in [facility]. Reports URI symptoms with ear lockage. [...] being taken. Patient does not see a ballistics tester. Eye exam is current. Currently taking: No [...] if BG <150 at HS. 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 Had bilat cataract extraction Dr. Lopez. Sees Dr. Browne in [place] every year routinely.Has blurred vision with low [...] started on Flomax; PSA elevated on labs 8..22. He was referred to Dr. Melendez in [...] Call if BG consistently <70 or >250. [phone] Continue to check blood sugar 3 times [...] CNP 11/13/24 1:21 PM documented in this [id number] Evaluation + Plan note* Assessment & Plan [...] be performed in conjunction with coronary revascularization. [id number] Miscellaneous Notes* Assessment & Plan Note - [...] conjunction with coronary revascularization. 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[facility] [id number] History of Present illness Narrative* Kristy Parker MD - 11/09/2024 10:36 AM EST OFFICE CONSULTATION NOTE [facility] [address] ([address]) [facility] [address] [facility] [address] Physicians: Ryley Jeter MD (Family); Sandi [...] stenosis CHF (congestive heart failure) ([facility]) CKD (chronic kidney disease) stage 4, GFR 15-29 ml/min ([facility]) Diabetes mellitus type 1 ([facility]) Emphysema lung (HCC) Hypercholesterolemia Hypertension Kidney stone 2006 Lithotripsy Normocytic anemia PAD (peripheral artery disease) ([facility]) Pneumonia Polyneuropathy Spinal stenosis, lumbar 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 Tobacco abuse Past Surgical History: Procedure Laterality Date CATARACT EXT/ECCE Bilateral 12/2012,07/2014 OR CATH PLMT L HRT & ARTS W/NJX & ANGIO IMG S&I N/A 10/27/2024 Procedure: Coronary Angiogram; Surgeon: Elías Rodriguez MD; Location: HYBRID TEAM LEADER/RESEARCH PSYCHOLOGIST;Service: Cardiovascular OR CATH PLMT L HRT & ARTS W/NJX & ANGIO IMG S&I N/A 10/27/2024 Procedure: Left Heart Cath; Surgeon: Elías Rodriguez MD; Location: HYBRID TEAM LEADER/RESEARCH PSYCHOLOGIST; Service: Cardiovascular SKIN CANCER EXCISION 09/2021 L [...] Reported on 11/09/2024 .) Allergies Allergen Reactions Bfymxwo-Vqw-Dab Reductase Inhibitors Muscle cramps ROS Negative aside [...] 11/27/2023 Kristy Parker MD documented in this [id number] Instructions* Patient Instructions* Yesenia Mcdaniel MA - 11/09/2024 10:32 AM EST How to contact your Care Team: Provider: MD Georgia Ludwig, TRISTAN Almonte, DOMINICK Clark Nurse: Jeannie Rubio RN To reschedule office appointments call Scheduling [phone] In case of an emergency please call 911. When in need of refills please call the phone number listed above. Please include medication name, pharmacy name and specify 30 or 90 day supply Please check with your pharmacy within 24 hours of your request for refill. You must follow up as directed to continue current refills. Thank you! documented in this [id number] Amanda Armando [id number] @[email or web address]@ Brock Groves MD 11/07/24 Room/bed info [...] right heart failure which required admission to [facility] for hypertensive emergency and acute flash pulmonary [...] - CHF (congestive heart failure) ([facility]) - CKD (chronic kidney disease) stage 4, GFR 15-29 ml/min ([facility]) - Diabetes mellitus type 1 ([facility]) - Emphysema lung ([facility]) - Hypercholesterolemia - Hypertension - Kidney stone 2006 Lithotripsy - Normocytic anemia - PAD (peripheral artery disease) ([facility]) - Pneumonia - Polyneuropathy - Spinal stenosis, lumbar - 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 - Tobacco abuse Past Surgical History: Procedure Laterality Date - CATARACT EXT/ECCE Bilateral 12/2012,07/2014 - OR CATH PLMT L HRT & ARTS W/NJX & ANGIO IMG S&I N/A 10/27/2024 Procedure: Coronary Angiogram; Surgeon: Elías Rodriguez MD; Location: HYBRID TEAM LEADER/RESEARCH PSYCHOLOGIST; Service: Cardiovascular - OR CATH PLMT L HRT & ARTS W/NJX & ANGIO IMG S&I N/A 10/27/2024 Procedure: Left Heart Cath; Surgeon: Elías Rodriguez MD; Location: HYBRID TEAM LEADER/RESEARCH PSYCHOLOGIST; Service: Cardiovascular - SKIN CANCER EXCISION 09/2021 [...] 3 - insulin g (more content not included)...[facility] [id number] History of Present illness Narrative* Brock Groves MD - 11/07/2024 10:36 AM EST Enoc Armando [id number] @[email or web address]@ Brock Groves MD 11/07/24 Room/bed info not [...] right heart failure which required admission to [facility] for hypertensive emergency and acute flash pulmonary [...] stenosis CHF (congestive heart failure) ([facility]) CKD (chronic kidney disease) stage 4, GFR 15-29 ml/min ([facility]) Diabetes mellitus type 1 (HCC) Emphysema lung (HCC) Hypercholesterolemia Hypertension Kidney stone 2006 Lithotripsy Normocytic anemia PAD (peripheral artery disease) ([facility]) Pneumonia Polyneuropathy Spinal stenosis, lumbar 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 Allergies Allergen Reactions Erjpqfd-Ppm-Ogw Reductase Inhibitors Muscle cramps Family History Problem [...] Resource Strain: Low Risk (10/11/2023) [facility] Overall Financial Resource Strain (CARDIA) Difficulty [...] Addressed This Visit None documented in this [id number] Progress note* Quick Note - Karthik Sandoval RN - 10/28/2024 2:53 PM EST Patient blood sugar at 1:27pm measured 288. Blood sugar at this time measured 321. [facility] [place] to give 8 units of lispro at this time and to instruct patient to recheck blood sugar in a couple hours at home. Patient IV removed and discharge education provided at this time. Patient understands and verbalizes he will check blood sugar when home and to follow medication regimen after discharge [id number] Miscellaneous Notes* Quick Note - Karthik Sandoval RN - 10/28/2024 2:53 PM EST Patient blood sugar at 1:27pm measured 288. Blood sugar at this time measured 321. [facility] ordered to give 8 units of lispro [...] but appreciative with provided care. Bed alarm environmental officer light in reach. * Plan of Care [...] ice chips and sips with meds * Quick Note - Julia Chan RN [...] Knowledge of Enviroment Outcome: Partially Met * John Note - Zoila Pollard PA-C - 10/27/2024 [...] kidney disease, BUN/creatinine: 92/2.60 respectively. * Quick Mary - Mary Willis RN - 10/27/2024 12:[address] Rodriguez notified and at bedside to speak to patient r/g Critical potasium and elevated glucose. documented in this [id number] NoteHMS DISCHARGE SUMMARY -- [facility] Enoc Armando Admitted: 10/27/2024 Discharge Date: 10/28/24 PCP Handoff Recommended Outpatient Testing none Results Pending At Discharge none Clinical Summary Enoc Armando is a 78 y.o. male patient of Ryley Jeter MD with history of coronary artery disease, type 1 diabetes, diastolic CHF, hypertension dyslipidemia COPD and lumbar spinal stenosis with chronic low back pain presented to [facility] on 10/27/2024 for an elective [...] . Quantity: 90 tablet [facility] Inhale 2 L/min See Admin Instructions [...] Physician(s) Follow Up: Brock Groves MD [address] [place] [id number] Follow up on 11/07/2024 Consultation for surgivcal [...] PM AUTHENTICATED BY NIDIA GARAY, ON 10/28/2024 14:19:[address] [place] [address] 10-28-2024 Hospital course Narrative* Nidia Garay MD - 10/28/2024 2:16 PM EST [facility] DISCHARGE SUMMARY -- [facility] Enoc Armando Admitted: 10/27/2024 Discharge Date: 10/28/24 PCP Handoff Recommended Outpatient Testing none Results Pending At Discharge none Clinical Summary Enoc Armando is a 78 y.o. male patient of Ryley Jeter MD with history of coronary artery disease, type 1 diabetes, diastolic CHF, hypertension dyslipidemia COPD and lumbar spinal stenosis withchronic low back pain presented to [facility] on 10/27/2024 for an elective [...] Physician(s) Follow Up: Brock Groves MD [address] [place] [phone] Follow up on 11/07/2024 Consultation for surgivcal [...] on 10/28/24, 2:16 PM documented in this [id number] NoteDaily Progress Note Assessment/Plan: Principal Problem: Hyperglycemia [...] Garay.. AUTHENTICATED BY ZOILA POLLARD, ON 10/28/2024 14:16:[address] [place] [address] 10-28-2024 History of Present illness Narrative* Zoila [...] Garay MD - 10/28/2024 11:36 AM EST [facility] PROGRESS NOTE Assessment and Plan Enoc Armando is a 78 y.o. male patient of Ryley Jeter MD with history of coronary artery disease, type 1 diabetes, diastolic CHF, hypertension dyslipidemia COPD and lumbar spinal stenosis withchronic low back pain presented to [facility] on 10/27/2024 for an elective [...] normal mood and affect documented in this [id number] NoteHMS PROGRESS NOTE Assessment and Plan Enoc Armando is a 78 y.o. male patient of Ryley Jeter MD with history of coronary artery disease, type 1 diabetes, diastolic CHF, hypertension dyslipidemia COPD and lumbar spinal stenosis with chronic low back pain presented to [facility] on 10/27/2024 for an elective [...] affect AUTHENTICATED BY NIDIA GARAY ON 10/28/2024 11:43:[address] [place] [address] 10-28-2024 Plan of care note* Plan of Care - Karthik Sandoval RN - 10/28/2024 9:11 AM EST Problem: Actual or potential alteration in health Goal: Absence of healthcare acquired conditions Outcome: Partially Met Goal: Knowledge of Interdisciplinary Plan of Care Outcome: Partially Met Goal: Knowledge of Enviroment Outcome: Partially Met Problem: Pressure Injury, Risk of Goal: Absence of pressure injury Outcome: Partially Met [id number] Progress note* Quick Note - Julia Chan RN - 10/28/2024 8:05 AM EST Patient stands at edge of bed to void and request to go to restroom. Patient does not want bedrest orders that are in place at this time. Patient is anxious for dc to home but appreciative with provided care. Bed alarm environmental officer light in reach. [id number] Plan of care note* Plan of Care [...] continue to monitor and report any concerns. [id number] Progress note* Quick Note - Julia Chan [...] drip infusing and started at 6.6 units/hr. [address]2024 Progress note* Quick Note - Julia Chan [...] excluding ice chips and sips with meds [id number] Progress note* Quick Note - Julia Chan RN - 10/27/2024 10:18 PM EST This RN received report from observation unit nurse via phone. [id number] Plan of care note* Plan of Care - Carlita Roth RN - 10/27/2024 9:42 PM EST Problem: Actual or potential alteration in health Goal: Absence of healthcare acquired conditions Outcome: Partially Met Goal: Knowledge of Interdisciplinary Plan of Care Outcome: Partially Met Goal: Knowledge of Enviroment Outcome: Partially Met [id number] History and physical note* Cintia Benitez MD - 10/27/2024 8:26 PM EST [facility] [place] [place] [facility] Patient Name: Enoc Armando : 1945 MR #: [id number] Admit Date: 10/27/2024 Physicians: Ryley Jeter MD (Family); No ref. provider found (Referring) Enoc Armando is a 78 y.o. male patient of Ryley Jeter MD with history of coronary artery disease, type 1 diabetes, diastolic CHF, hypertension dyslipidemia COPD and lumbar spinal stenosis withchronic low back pain presented to [facility] on 10/27/2024 for an elective [...] low back pain presented to [facility] on 10/27/2024 for an elective [...] Information I have reviewed the patient's allergies. Dpzhhii-jfr-fya reductase inhibitors Home Medications Home medications were [...] normal coloration Psych: normal mood and affect [id number] NoteHMS HISTORY AND PHYSICAL -- [facility] Patient Name: Enoc Armando : 1945 MR #: [id number] Admit Date: 10/27/2024 Physicians: Ryley Jeter MD (Family); No ref. provider found (Referring) Enoc Armando is a 78 y.o. male patient of Ryley Jeter MD with history of coronary artery disease, type 1 diabetes, diastolic CHF, hypertension dyslipidemia COPD and lumbar spinal stenosis with chronic low back pain presented to [facility] on 10/27/2024 for an elective [...] low back pain presented to [facility] on 10/27/2024 for an elective [...] Information I have reviewed the patient's allergies. Ivhhnvk-mnx-ntm reductase inhibitors Home Medications Home medications were [...] coloration Psych: (more content not included)...[facility]12-27-2024 History and physical note* Cintia Benitez MD - 10/27/2024 8:26 PM EST [facility] [facility] [place] [facility] Patient Name: Enoc Armando : 1945 MR #: [id number] Admit Date: 10/27/2024 Physicians: Ryley Jeter MD (Family); No ref. provider found (Referring) Enoc Armando is a 78 y.o. male patient of Ryley Jeter MD with history of coronary artery disease, type 1 diabetes, diastolic CHF, hypertension dyslipidemia COPD and lumbar spinal stenosis withchronic low back pain presented to [facility] on 10/27/2024 for an elective [...] low back pain presented to [facility] on 10/27/2024 for an elective [...] Information I have reviewed the patient's allergies. Tiklvvj-aws-unj reductase inhibitors Home Medications Home medications were [...] normal coloration Psych: normal mood and affect INE * Elías Rodriguez MD - 10/27/2024 8:17 AM EST INTERVAL HISTORY AND PHYSICAL Patient Name: Enoc Armando Admit Date: 12261205 MR #: [id number] : 1945 The H&P has been reviewed [...] EST General Cardiology New Patient Clinic Consult [facility] 10/18/2024 Woo Small MD [address] [place] [address] 3rd Floor Medical Office [facility] [address] Patient: Enoc Armando Date [...] No follow-ups on file. Woo Small MD, [facility] Non-Invasive Cardiology [facility] P:[phone] F:[phone] History of Present Illness: Enoc Armando is a 78 y.o. man with a past medical history of insulin-dependent diabetes for 30 years, history of tobacco use, recent COVID infection with systolic dysfunction ejection fraction ranging from 35 to 45% who presented initially to [facility] care. He underwent stress testing which showedinferior wall abnormality as well as ejection fraction of 50%. I initially met with him back in January and he was doing quite well, however today he presents with progressive symptoms of fatigue, malaise, and a recent heart failure exacerbation at [facility] for hypertensive emergency and acute flash pulmonary [...] Cigarettes Smokeless Tobacco Never Allergies: Prednisone and Dbcwarl-mng-hun reductase inhibitors All of the information has [...] 50%, rest LVEF 51%. Echocardiogram reviewed from [facility], 10/11/2023 moderately decreased ejection fraction estimated at [...] history suggesting prior/existing ASCVD documented in this [id number] Progress note* Quick Note - Zoila Pollard [...] stage IV kidney disease, BUN/creatinine: 92/2.60 respectively. [id number] Progress note* Quick Note - Mary Willis RN - 10/27/2024 12:[address] Rodriguez notified and at bedside to speak to patient r/g Critical potasium and elevated glucose. [id number] Attending History and physical note* Elías Rodriguez MD - 10/27/2024 8:17 AM EST INTERVAL HISTORY AND PHYSICAL Patient Name: Enoc Armando Admit Date: 12261205 MR #: [id number] : 1945 The H&P has been reviewed [...] EST General Cardiology New Patient Clinic Consult [facility] 10/18/2024 Woo Small MD [address] [place] [address], 3rd Floor Medical Office [place] [id number] Patient: Enoc Armando Date of : 1945 [...] No follow-ups on file. [facility]oo Small MD, [facility] P:[phone] F:[phone] History of Present Illness: Enoc Armando is a 78 y.o. man with a past medical history of insulin-dependent diabetes for 30 years, history of tobacco use, recent COVID infection with systolic dysfunction ejection fraction ranging from 35 to 45% who presented initially to [facility] care. He underwent stress testing which showedinferior wall abnormality as well as ejection fraction of 50%. I initially met with him back in January and he was doing quite well, however today he presents with progressive symptoms of fatigue, malaise, and a recent heart failure exacerbation at [facility] for hypertensive emergency and acute flash pulmonary [...] Cigarettes Smokeless Tobacco Never Allergies: Prednisone and Zbdnalz-aqe-osw reductase inhibitors All of the information has [...] 90 tablet, Rfl: 3 [facility] Inhale 2 L/min See Admin Instructions [...] 50%, rest LVEF 51%. Echocardiogram reviewed from [facility], 10/11/2023 moderately decreased ejection fraction estimated at [...] has a medical history suggesting prior/existing ASCVD [facility] Work Phone: 1(218) 896-637012-27-2024 Hospital Discharge instructions* Discharge Instructions* Sonya King RN - 10/27/2024 8:16 AM EST [facility] Post Cardiac Catheterization Discharge Instructions Site Care Leave Bandage in place the night of your catheterization. Watch for any bleeding or oozing from thesite. If this occurs, lie flat and place direct pressure on the bandage for 20 minutes. If bleedingreoccurs call [facility]. For groins, remove your bandage the following [...] shower 24 hours after the procedure. Call [facility] at [phone] if you notice any of the following: [...] need of prescription assistance, please notify the [facility] nurse or call the office. If you were prescribed Plavix (clopidogrel), Effient (prasugrel), or Brilinta (ticagrelar) after your procedure, DO NOT STOP taking this medication unless told to do so by your [facility] greenbelt. Follow up appointments, tests or procedures will be on your discharge paperwork under What's next. Please call [facility] at [phone] to reschedule any appointments if needed or if you have any questions or concerns. Thank you! documented in this [id number] Instructions* Patient Instructions* Luisa Easley RN - 10/18/2024 1:27 PM EST How to Contact your Care Team: Provider: Dr. Woo Small MD Clinic Nurse: Luisa Vega RN Clinic MA: Ej Guidry MA REFILLS: When in need for refills please call your care team or the office at [phone]. Please include medication name, pharmacy name, and specify 30-day or 90-day supply. Please check with your pharmacy within 24 hours of request for your refill. You must follow up as directed to continue current refills. Thank you! Heart Catheterization Date of your procedure: 10/27/2024 at 8:00am Please arrive at [facility]. Please park in the garage next to the medical office building. If needed, publisher assistant parking is available at the front entrance [...] questions or concerns please contact us at [phone]. documented in this [id number] History of Present illness Narrative* Woo Small MD - 10/18/2024 1:20 PM EST General Cardiology New Patient Clinic Consult [facility] 10/18/2024 Woo Small MD [address] [place] [address] 3rd Floor Medical Office [facility] [address] Patient: Enoc Armando Date [...] No follow-ups on file. Woo Small MD, [facility] Non-Invasive Cardiology [facility] P:[phone] F:[phone] History of Present Illness: Enoc Armando is a 78 y.o. man with a past medical history of insulin-dependent diabetes for 30 years, history of tobacco use, recent COVID infection with systolic dysfunction ejection fraction ranging from 35 to 45% who presented initially to [facility] care. He underwent stress testing which showedinferior wall abnormality as well as ejection fraction of 50%. I initially met with him back in January and he was doing quite well, however today he presents with progressive symptoms of fatigue, malaise, and a recent heart failure exacerbation at [facility] for hypertensive emergency and acute flash pulmonary [...] Cigarettes Smokeless Tobacco Never Allergies: Prednisone and Iqhbskb-hgj-rnf reductase inhibitors All of the information has [...] 50%, rest LVEF 51%. Echocardiogram reviewed from [facility], 10/11/2023 moderately decreased ejection fraction estimated at [...] BILITOT 0.7 11/27/2023 The ASCVD Risk score (Dahsa SIMS, et al., 2019) failed to calculate for the following reasons: The 2019 ASCVD risk score is only valid for ages 40 to 79 Risk score cannot be calculated because patient has a medical history suggesting prior/existing ASCVD documented in this [id number] NoteGeneral Cardiology New Patient Clinic Consult [facility] 10/18/2024 Woo Small MD [address] [facility], 3rd Floor Medical Office Building [facility] [address] Patient: Enoc Armando Date of [...] No follow-ups on file. Woo Small MD, [facility] Non-Invasive Cardiology [facility] P:[phone] F:[phone] History of Present Illness: Enoc Armando is a 78 y.o. man with a past medical history of insulin-dependent diabetes for 30 years, history of tobacco use, recent COVID infection with systolic dysfunction ejection fraction ranging from 35 to 45% who presented initially to [facility] care. He underwent stress testing which showed inferior wall abnormality as well as ejection fraction of 50%. I initially met with him back in January and he was doing quite well, however today he presents with progressive symptoms of fatigue, malaise, and a recent heart failure exacerbation at [facility] for hypertensive emergency and acute flash pulmonary [...] Cigarettes Smokeless Tobacco Never Allergies: Prednisone and Ioquqki-iko-zpg reductase inhibitors All of the information has [...] capsule, Take 1 ( (more content not included)...[facility]12-06-2024 Telephone encounter Note* Telephone Encounter - Luisa Easley RN - 10/06/2024 2:45 PM EST Spoke with pt and reviewed Dr. Small's comments and suggestions. Pt was agreeable to starting Imdur 30mg daily and confirmed appt with Dr. Small on 10/18 at 1:20pm in the [place] location. Pt expressedappreciation and understanding. [id number] Telephone encounter Note* Telephone Encounter - Luisa [...] abnormalities can be difficult to pick up man Would he be okay coming in the [...] Woo Small MD We received everything from [place] on him-I know we were waiting on this to see about changing things up ----- Message ----- From: Ej Guidry MA Sent: 10/04/2024 2:01 PM EST To: Luisa Easley RN Records from [facility] [id number] Miscellaneous Notes* Telephone Encounter - Luisa Easley RN - 10/06/2024 2:45 PM EST Spoke with pt and reviewed Dr. Small's comments and suggestions. Pt was agreeable to starting Imdur 30mg daily and confirmed appt with Dr. Small on 10/18 at 1:20pm in the [place] location. Pt expressedappreciation and understanding. * Telephone [...] abnormalities can be difficult to pick up man Would he be okay coming in the [...] EST To: Luisa Easley RN Records from [facility] documented in this [id number] [facility] 09-12-2024 [facility]10-29-2024 History of Present illness Narrative* [...] 1:12 PM documented in this [facility] Work Phone: 1([phone]) 146-602509-20-2024 NotePatient ID: Enoc Armando is a 78 [...] O2, C-pap, etc. Hospitalized in [facility] with CHF, pleural effusions and elevated [...] being taken. Patient does not see a ballistics tester. Eye exam is current. Currently taking: No [...] Neurological: Mental Status: He (more content not included)...[facility]09-20-2024 History of Present illness Narrative* Paty Ortega, [facility] - 07/21/2024 1:58 PM EDT Images from [...] O2, C-pap, etc. Hospitalized in [facility] with CHF, pleural effusions and elevated [...] being taken. Patient does not see a ballistics tester. Eye exam is current. Currently taking: No [...] by mouth daily . [facility] Inhale 2 L/min See Admin Instructions [...] if BG <150 at HS. 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 Had bilat cataract extraction Dr. Lopez. Sees Dr. Browne in [place] every year routinely.Has blurred vision with low [...] Call if BG consistently <70 or >250. [phone] Continue to check blood sugar 3 times [...] CNP 07/21/24 1:21 PM documented in this [id number] Instructions* Patient Instructions* Luisa Easley RN - 04/24/2024 10:08 AM EDT How to Contact your Care Team: Provider: Dr. Woo Small MD Clinic Nurse: Luisa Easley RN Clinic MA: Ej Guidry MA REFILLS: When in need for refills please call your care team or the office at [phone]. Please include medication name, pharmacy name, and specify 30-day or 90-day supply. Please check with your pharmacy within 24 hours of request for your refill. You must follow up as directed to continue current refills. Thank you! documented in this [id number] History of Present illness Narrative* Woo Small MD - 04/24/2024 9:40 AM EDT General Cardiology New Patient Clinic Consult [facility] 04/24/2024 Woo Small MD [address] [place] [address] Patient: Enoc Armando Date of : [...] 1 year (around 04/24/2025). Woo Small MD, [facility] Non-Invasive Cardiology [facility] P:[phone] F:[phone] History of Present Illness: Enoc Armando is a 78 y.o. man with a past medical history of insulin-dependent diabetes for 30 years, history of tobacco use, recent COVID infection with systolic dysfunction ejection fraction ranging from 35 to 45% who presented initially to [facility]. He underwent stress testing which showedno definite [...] Cigarettes Smokeless Tobacco Never Allergies: Prednisone and Tlnswlb-eec-npn reductase inhibitors All of the information has [...] 90 tablet, Rfl: 3 [facility] Inhale 2 L/min See Admin Instructions [...] 50%, rest LVEF 51%. Echocardiogram reviewed from [facility], 10/11/2023 moderately decreased ejection fraction estimated at [...] BILITOT 0.7 11/27/2023 The ASCVD Risk score (Jupiter DK, et al., 2019) failed to calculate for the following reasons: The 2019 ASCVD risk score is only valid for ages 40 to 79 The patient has a prior [place] or stroke diagnosis documented in this [id number] Telephone encounter Note* Telephone Encounter - Ej Guidry MA - 03/28/2024 1:53 PM EDT Pt was last seen on 01/14/24 by Aylin Lacy CNP. Refills appropriate. Routing to Dr. Garay as Dr. Small is out of the office. [id number] Miscellaneous Notes* Telephone Encounter - Ej Guidry MA - 03/28/2024 1:53 PM EDT Pt was last seen on 01/14/24 by Aylin Lacy CNP. Refills appropriate. Routing to Dr. Garay as Dr. Small is out of the office. documented in this [id number] Evaluation + Plan note* Assessment & Plan Note - CULLEN Guzmán DNP - 02/24/2024 2:39 PM EDT Associated Problem(s): CKD (chronic kidney disease) Creatinine is stable at 1.92 and stable, stage IIIb, blood pressure is well controlled, diabetes well controlled, not using NSAIDs. [facility] Work Phone: 1(842) 563-162804-25-2024 Miscellaneous Notes* Assessment & Plan Note - [...] and metoprolol, no changes documented in this [facility] Work Phone: 1(123) 146-696804-25-2024 Evaluation + Plan note* Assessment & Plan Note - CULLEN Guzmán DNP - 02/24/2024 2:38 PM EDTAssociated Problem(s): Type 1 diabetes mellitus with diabetic neuropathy (Multi) Follows with endocrinology, is not to use SGLT2 due to Type I diabetes [facility] Work Phone: 1(938) 865-288604-25-2024 Evaluation + Plan note* Assessment & Plan Note - CULLEN Guzmán DNP - 02/24/2024 2:38 PM EDTAssociated Problem(s): Essential hypertension BP is well controlled on lisinopril and metoprolol, no changes [facility] Work Phone: 1(711) 452-856704-25-2024 History of Present illness Narrative* CULLEN Guzmán [...] Global hypokinesia of the left ventricle CULLEN Guzmán, DNP 02/24/24 1:50 PM documented in this [facility] Work Phone: 1(942) 860-900404-19-2024 History of Present illness Narrative* Paty Ortega [...] O2, C-pap, etc. Hospitalized in [facility] with CHF, pleural effusions and elevated [...] being taken. Patient does not see a ballistics tester. Eye exam is current. Currently taking: No [...] if BG <150 at HS. 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 Had bilat cataract extraction Dr. Lopez. Sees Dr. Browne in [place] every year routinely.Has blurred vision with low [...] Call if BG consistently <70 or >250. [phone] Continue to check blood sugar 3 times [...] CNP 02/18/24 1:21 PM documented in this [id number] Instructions* Patient Instructions* Robert Dominguez RN - 01/14/2024 11:46 AM EDT How to Contact your Care Team: Provider: Dr. Woo Small MD Clinic Nurse: Luisa Easley RN REFILLS: When in need for refills please call your care team or the office at [phone]. Please include medication name, pharmacy name, and specify 30-day or 90-day supply. Please check with your pharmacy within 24 hours of request for your refill. You must follow up as directed to continue current refills. Thank you! documented in this [id number] History of Present illness Narrative* Aylin Lacy CNP - 01/14/2024 11:00 AM EDT General Cardiology Returning Patient Clinic Visit [facility] 01/14/2024 Aylin Lacy CNP [address] [facility] Medical Office [facility] [address] Patient: Enoc Armando Date of : 1945 (78 y.o.) Histology Technician: Dr. Small PCP: Ryley Jeter MD Chief Complaint: Transitional care appointment Date of Service: 01/14/2024 Assessment and Plan: Systolic dysfunction with recovery of ejection fraction -Euvolemic on exam -Continue lisinopril 5 mg daily -Continue metoprolol succinate 25 mg daily -Continue Lasix 20 mg twice daily -He is following with nephrology in [place]. He has an upcoming appointment and labs [...] Next scheduled follow up. Aylin Lacy, MSN, CAPPING MACHINE OPERATOR, TECHNICAL TRAINING MANAGER-C, AUTOMOTIVE SALESPERSON, ECG- General Cardiology [facility] History of Present Illness: Enoc Armando is a 78 y.o. man with a past medical history of hypertension, hyperlipidemia, insulin-dependent diabetes mellitus, CKD, smoker, emphysema, chronic hypoxemia and systolic dysfunction. He presents today for transitional care appointment. He was last seen in our office on 10/21/2023 by his primary greenbelt Dr. Small. Recent COVID infection at the end of last year and patient was notedto have systolic dysfunction with a ejection fraction ranging from 35 to 45%. He had left ventricular recovery noted on most recent echocardiogram from 11/30/2023, LVEF 63%. He presented to the [facility] on 11/27/2023 with complaints of [...] 25.50 Types: Cigarettes Smokeless Tobacco Never Allergies: Kaxzwkn-gxi-fth reductase inhibitors All of the above information [...] [place] or stroke diagnosis documented in this [id number] Telephone encounter Note* Telephone Encounter - Ej Guidry MA - 12/29/2023 10:31 AM EST Pt's called in asking if pt needs to continue the lasix from hospit[facility] if so he needs a refill.Per the note on 12/01/23 per Ellie Aguilar ROLLED GOLD PLATER: IV Lasix 20 mg BID, can transition to orals on discharge. Pt has an appt on 01-14-24 with Aylin HUDSON. Pended medication to Dr. Small for her to sign. [id number] Miscellaneous Notes* Telephone Encounter - Ej Guidry MA - 12/29/2023 10:31 AM EST Pt's called in asking if pt needs to continue the lasix from hospit[facility] if so he needs a refill.Per the note on 12/01/23 per Ellie Aguilar ROLLED GOLD PLATER: IV Lasix 20 mg BID, can transition to orals on discharge. Pt has an appt on 01-14-24 with Aylin HUDSON. Pended medication to Dr. Small for her to sign. documented in this [id number] Miscellaneous Notes* Quick Note - Ellie Aguilar CNP - 12/01/2023 11:20 AM EST WENM-QF-[id number] ENCOUNTER FOR HOME MEDICAL EQUIPMENT PATIENT: Enoc Armando : 1945 Statement of Care: I certify that Enoc Armando is under my care and that I, a Nurse Practitioner, Physician's Keypunch Operator, or Resident working with me, had a wlsc-fu-bduv encounter with this patient yesterday to evaluate and discuss the need for home medical equipment. I certify that based on the findings of this evaluation, which included but was not limited to the dpes-to-kxfz requirements, the following home medical equipment is [...] no longer in ICU bed. On 2lpm AR. Critical care will sign off. * CDI Query - Cintia Benitez MD - 11/29/2023 6:23 AM EST Query 2 of 2 Noted 11/27 [facility] PMHx documentation of CKD Clinical Indicators: [...] renal status. For Example: CKD stage 3 [facility] CKD stage: (please stage, if known) Other (please specify) Chronic Kidney Disease Stages: Stage eGFR I > 90 II 60 - 89 III 30 - 59 IV 15 - 29 V < 15 or dialysis ESRD Thank you, Aubree CRAWFORD,RN Clinical Documentation tube backer After business hours you may contact Ebony Dayana at [phone] (Weekdays until 10 PM and weekends 8 AM -10 PM) * CDI Query - Cintia Benitez MD - 11/29/2023 6:14 AM EST Noted 11/27 [facility] documentation of heart failure. Clinical Indicators: 11/27 [facility]: CHF....-Continue IV Lasix, check I's and [...] crackles at base Test results: 11/27: BNP: 92265 Please specify the acuity and type of heart failure in the progress notes. For Example: Acute on chronic systolic CHF POA Chronic systolic CHF, no acute exacerbation Other (please specify) Thank you, Aubree CRAWFORD,RN Clinical Documentation Plastic Eye Technician After business hours you may contact Ebony Link at [phone] (Weekdays until 10 PM and weekends 8 [...] currently. Priscilla Aranda RDN, LD Dietitian's Office [phone] * Quick Note - Carlita Lazaro RRT - 11/27/2023 5:43 AM EST Critical Glucose from VBG reported to Norma Geiger ROLLED GOLD PLATER * Quick Note - Julia Chan RN [...] - Brief Progress Note PERMANENT 11/27/2023 04:43 [facility] CCU ENOC ARMANDO Date of Service 11/27/2023 [...] adjustment * Quick Note - Carlita Lazaro, DIRECTOR OF BLOOD - 11/27/2023 4:20 AM EST Called by RN due to patient SpO2 87% on 2L. RN states she increased to 4L and patient was 90%. Wentto patient room and patient was diaphoretic and with increased WOB with RR at 37. Patient placed onbipap and Norma Juanjo BOWLING BALL ENGRAVER notified. Patient was then transferred to MICU [...] came to room and replaced on bipap. BOWLING BALL ENGRAVER came to see patient and request patient to be transfer to ICU due to obvious SOB. Patent transported to ICU on bipap while accompanied by Karla from RT and this RN. * John Note - Julia Chan RN - 11/27/2023 3:40 AM EST Patient resting calmly on o2 2 liters via nasal cannula. Request to be placed on bedpan and requesturinal. Nancy PSA turned patient and placed patient on bedpan. * Quick Note - Carlita Lazaro RRT - 11/27/2023 3:33 AM EST Critical Glucose 493 from VBG reported to Norma Geiger CNP * Quick Note - Julia Chan RN - 11/27/2023 2:42 AM EST EMT TRANSPORTER SET HEPARIN DRIP ON Alaris pump at 8 ml per hr. * John Note - Julia Chan RN - 11/27/2023 2:31 AM EST Informed RT that patient has arrived from [facility]. Attempt to let dr Pereira aware of arrival from [facility] no answer will leave message. documented in this [id number] Hospital course Narrative* Ellie Aguilar, TRISTAN - 12/01/2023 11:03 AM EST [facility] [place] -- [facility] Enoc Armando Admitted: 11/27/2023 Discharge Date: 12/01/23 PCP Handoff Recommended Outpatient Testing None Results Pending At Discharge None Clinical Summary Enoc Armando is a 77 y.o. male patient of Ryley Jeter MD with history of HTN, HLD, DM Type I, CKD, COPD, chronic hypoxemic respiratory failure who presented to [facility] with respiratory distress . Severe [...] Ryley Jeter MD [address] [facility] [address] Follow up Please call to schedule a [...] on 12/01/23, 11:10 AM documented in this [id number] History of Present illness Narrative* Cassius Jody, BARRON - 12/01/2023 10:20 AM EST Physical Therapy [...] Static: Supervision, without UE support, with device Type Rolling Machine Operator - Standing Static: wheeled walker Loss of Balance- Standing Static: (none) Standing Balance - Dynamic: Stand by assist Type Rolling Machine Operator - Standing Dynamic: wheeled walker Loss of Balance- Standing Dynamic: (none) Bed Mobility Supine to Sit: Contact guard assist, Head of bed elevated Type Rolling Machine Operator: (none) Skilled Intervention Provided: verbal cues, monitoring patient response with activity, environmental setup/modification, facilitation, provided step by step instructions For: efficient movement, safety during functional tasks, sequencing of movement Resulting in: improved activity tolerance, improved functional independence, improved performance, improved safety, increased upright tolerance for functional tasks Transfers Sit to Stand: Stand by assist Type Rolling Machine Operator: BUE, wheeled walker Additional Transfer Trial 2: Yes Sit to Stand Trial 2: Stand by assist Type Rolling Machine Operator Trial 2: wheeled walker, BUE Skilled Intervention [...] O2;) Prior Level of Function Level of [place] - Transfers/Ambulation/Mobility: Independent with functional transfers, Independent with household ambulation, Independent with community ambulation (no AD for in home ambulation, intermitant use of cane in community for longer distances) Level of [place] - ADLs: Independent Level of [place] - Homemaking: ( takes care of all [...] Enoc Armando Admit Date: 11/27/2023 MR #: [id number] : 1945 Current location: [facility] Physicians: Ryley Jeter MD (Family); [...] NST in a week, spoke with his greenbelt Dr. Small, who will arrange to have [...] CHF, hypertension, hyperlipidemia, emphysema who presented to [facility] emergency department with a complaint of [...] T CO2 17. He was transferred to [facility] for further evaluation and treatment. At [...] platelet count 220,000 Allergies: Allergies Allergen Reactions Ikydift-Qdx-Jwr Reductase Inhibitors Muscle cramps Home Medications: Outpatient [...] Oral Daily furosemide 20 mg Intravenous Q12H [facility] insulin glargine 14 Units Subcutaneous Nightly [...] Enoc Armando Admit Date: 1261205 MR #: [id number] : 1945 Physicians: Ryley Jeter MD (Family); Ger Bansal DO (Referring) Assessment: Patient with 1. Respiratory failure 2. Suspicion for pneumonia 3. Possible congestive heart failure 4. Non-ST elevation [place]. 5. History of COVID-19 infection. Plan: Continue patient on current therapy Continue patient on IV azithromycin Continue on ceftriaxone From [facility] 5 weeks ago patient was [...] the patient is stable. Previous x-ray at [facility] had shown congestive changes and [...] 97.9 F (36.6 C) SpO2: 94% Allergies: Oahsrsi-iyo-knl reductase inhibitors Medications Reviewed. Current Facility-Administered Medications: [...] excoriations Musculoskeletal: No joint swelling, non tender COMPANION CAREGIVER: Awake, and Ox3 Wound: No Osborne Catheter: [...] Bilateral infrahilar patchy opacities, concerning for pneumonia. KATHERYN/marisol Workstation ID: [id number] Laboratory and Additional Data [...] Aguilar CNP - 11/30/2023 9:26 AM EST [facility] [place] Assessment and Plan Enoc Armando is a 77 y.o. male patient of Ryley Jeter MD with history of HTN, HLD, DM Type I, CKD, COPD, chronic hypoxemic respiratory failure who presented to [facility] with respiratory distress . Severe [...] treatment for pneumonia and CHF Discharge Location: [facility] Quality Measures DVT Prophylaxis:scd Osborne Catheter: present [...] Enoc Armando Admit Date: 1261205 MR #: [id number] : 1945 Physicians: Ryley Jeter MD (Family); Ger Bansal DO (Referring) Assessment: Patient with 1. Respiratory failure 2. Suspicion for pneumonia 3. Possible congestive heart failure 4. Non-ST elevation [place]. 5. History of COVID-19 infection. Plan: Continue patient on current therapy Continue patient on IV azithromycin Continue on ceftriaxone From [facility] 5 weeks ago patient was [...] the patient is stable. Previous x-ray at [facility] had shown congestive changes and [...] 97.7 F (36.5 C) SpO2: 97% Allergies: Jytrzwx-sld-gdp reductase inhibitors Medications Reviewed. Current Facility-Administered Medications: [...] excoriations Musculoskeletal: No joint swelling, non tender COMPANION CAREGIVER: Awake, and Ox3 Wound: No Osborne Catheter: [...] Enoc Armando Admit Date: 11/27/2023 MR #: [id number] : 1945 Current location: [facility] Physicians: Ryley Jeter MD (Family); [...] CHF, hypertension, hyperlipidemia, emphysema who presented to [facility] emergency department with a complaint of [...] T CO2 17. He was transferred to [facility] for further evaluation and treatment. At [...] platelet count 220,000 Allergies: Allergies Allergen Reactions Gqogjfa-Oak-Zhz Reductase Inhibitors Muscle cramps Home Medications: Outpatient [...] sodium chloride (PF) 5 mL Intravenous Q8H [facility] acetaminophen, dextrose, ipratropium-albuteroL, [COMPLETED] Insert Indwelling [...] Enoc Armando Admit Date: 1261205 MR #: [id number] : 1945 Physicians: Ryley Jeter MD (Family); Ger Bansal DO (Referring) Assessment: Patient with 1. Respiratory failure 2. Suspicion for pneumonia 3. Possible congestive heart failure 4. Non-ST elevation [place]. 5. History of COVID-19 infection. Plan: Continue patient on current therapy Continue patient on IV azithromycin Continue on ceftriaxone From [facility] 5 weeks ago patient was [...] the patient is stable. Previous x-ray at [facility] had shown congestive changes and [...] 97.9 F (36.6 C) SpO2: 97% Allergies: Dipgufe-sea-fqv reductase inhibitors Medications Reviewed. Current Facility-Administered Medications: [...] 125 mL, 125 mL, Intravenous, PRN, Lisa Farai PA-C ezetimibe (ZETIA) tablet 10 mg, 10 [...] excoriations Musculoskeletal: No joint swelling, non tender COMPANION CAREGIVER: Awake, and Ox3 Wound: No Osborne Catheter: None IV Access: yes I reviewed Medications. I reviewed Labs. XR Chest 1 View Final Result Bilateral infrahilar patchy opacities, concerning for pneumonia. [employer] Workstation ID: [id number] Echocardiogram complete (Results [...] Benitez MD - 11/29/2023 1:37 PM EST [facility] [place] Assessment and Plan Enoc Armando is a 77 y.o. male patient of Ryley Jeter MD with history of HTN, HLD, DM Type I, CKD, COPD, chronic hypoxemic respiratory failure who presented to [facility] with respiratory distress . Severe [...] Enoc Armando Admit Date: 11/27/2023 MR #: [id number] : 1945 Current location: [facility] Physicians: Ryley Jeter MD (Family); [...] to monitor and adjust. 11/29 Increase to 8/8 H, 16L Subjective: Brief HPI: Patient is a 77-year-old male with a history of type 1 diabetes mellitus for 29 years, CHF, hypertension, hyperlipidemia, emphysema who presented to [facility] emergency department with a complaint of [...] T CO2 17. He was transferred to [facility] for further evaluation and treatment. At [...] platelet count 220,000 Allergies: Allergies Allergen Reactions Tazosoo-Csu-Isr Reductase Inhibitors Muscle cramps Home Medications: Outpatient [...] sodium chloride (PF) 5 mL Intravenous Q8H [facility] acetaminophen, dextrose, heparin, ipratropium-albuteroL, [COMPLETED] Insert [...] General Cardiology Inpatient Follow-up [facility] 11/28/2023 Iraida Alvarado CNP [facility] Patient: Enoc Armando Date of [...] is orient x 3. Telemetry: SR Allergies: Ammvrke-nbj-ijv reductase inhibitors Review of Systems: The following [...] TROPONINI 9,349 (CH) 11/27/2023 Iraida Alvarado CNP * Bipin Claros - 11/28/2023 11:16 AM EST Spiritual Care Progress Note Completed by: Bipin Claros Person(s) Present During this Visit: Patient Time Spent in Direct Patient Care: 15 Narrative: This bankruptcy attorney visited the pt., Enoc, while rounding. Introduced [...] of his children and grandchildren. 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 This bankruptcy attorney helped the pt explore their feelings about their hospitalization and identify sources of support. This bankruptcy attorney provided information about Pastoral Care services and how to contact a bankruptcy attorney. Pastoral Care team will remain available to support patient and family PRN. 11/28/23 1116 Visit Background Visit With Patient Visit By Staff Historian Dramatic Arts Visit Progression Introduction Visit Requested By Historian Dramatic Arts Initiated Visit Source Historian Dramatic Arts Initiated Visit Type Inpatient;Rounding Visit Circumstances and Events Routine Visit Visit Length (minutes) 15 Patient's Response to Pastoral Care Appeared to be well-engaged;Expressed Gratitude for Visit Visit Planning PRN;Pt aware to contact Historian Dramatic Arts as needed Spiritual Assessment Assessed during this visit Confucianism Assessment Not assessed during this visit Family [...] Facilitated Interventions Active Listening;Explained Role of the Historian Dramatic Arts;Explored thoughts/feelings associated with current hospitalization;Relationships Spiritual/Emotional Outcomes Appreciative;Gratitude Spiritual Plan of Care Continue Healing Process;Receive Spiritual Support Signature: Bipin Claros MDiv Staff Historian Dramatic Arts [facility] 24hr On-Call /Adriana On-Call Historian Dramatic Arts She/Her/Hers * Cintia Benitez MD - 11/28/2023 10:49 AM EST [facility] [place]ESS [place] Assessment and Plan Enoc Armando is a 77 y.o. male patient of Ryley Jeter MD with history of HTN, HLD, DM Type I, CKD, COPD, chronic hypoxemic respiratory failure who presented to [facility] with respiratory distress . Severe [...] Enoc Armando Admit Date: 1261205 MR #: [id number] : 1945 Physicians: Ryley Jeter MD (Family); Ger Bansal DO (Referring) Assessment: Patient with 1. Respiratory failure 2. Suspicion for pneumonia 3. Possible congestive heart failure 4. Non-ST elevation [place]. 5. History of COVID-19 infection. Plan: Continue patient on current therapy Continue patient on IV azithromycin Continue on ceftriaxone From [facility] 5 weeks ago patient was [...] the patient is stable. Previous x-ray at [facility] had shown congestive changes and [...] 97.7 F (36.5 C) SpO2: 97% Allergies: Obntjuu-aea-hkj reductase inhibitors Medications Reviewed. Current Facility-Administered Medications: [...] chloride 0.9% (NS), 0-150 mL/hr, Intravenous, PRN, Juanjo, Norma Tania, ROLLED GOLD PLATER Review of Systems: Constitutional: Negative for fatigue, [...] excoriations Musculoskeletal: No joint swelling, non tender COMPANION CAREGIVER: Awake, and Ox3 Wound: No Osborne Catheter: [...] Bilateral infrahilar patchy opacities, concerning for pneumonia. [facility] Workstation ID: [id number] Echocardiogram complete (Results Pending) [...] Date of : 1945 Site: [facility] Provider: Prashant Cesar MD ASSESSMENT/PLAN: Enoc Armando 77 y.o. male transferred last night for resp distress, NSTEMI, hypergllycemia from [facility] Three weeks ago testing positive for Covid and then diagnosed with pneumonia. He has been treated as an outpatient with oral antibiotics. He has been experiencing intermittent midsternal chest pain for the past 3 weeks On arrival to [facility], he was placed on NIPPV [...] tablet 20 mg 20 mg Oral Nightly Nroma Geiger CNP 20 mg at 11/27/232020 azithromycin [...] Enoc Armando Admit Date: 11/27/2023 MR #: [id number] : 1945 Current location: [facility] Physicians: Ryley Jeter MD (Family); [...] CHF, hypertension, hyperlipidemia, emphysema who presented to [facility] emergency department with a complaint of [...] T CO2 17. He was transferred to [facility] for further evaluation and treatment. At [...] platelet count 220,000 Allergies: Allergies Allergen Reactions Jipynms-Qrf-Xhy Reductase Inhibitors Muscle cramps Home Medications: Outpatient [...] Date of : 1945 Site: [facility] Provider: Prashant Cesar MD ASSESSMENT/PLAN: Enoc Armando 77 y.o. male transferred last night for resp distress, NSTEMI, hypergllycemia from [facility] Three weeks ago testing positive for Covid and then diagnosed with pneumonia. He has been treated as an outpatient with oral antibiotics. He has been experiencing intermittent midsternal chest pain for the past 3 weeks On arrival to [facility], he was placed on NIPPV [...] injection 40 mg 40 mg Intravenous Q12H DIID Norma Geiger CNP 40 mg at 11/27/23 [...] 0-10 mL of mixtureIntravenous Once in imaging [place], Norma Tania, ROLLED GOLD PLATER sodium chloride (PF) (NS) flush 5 mL 5 mL Intravenous PRN Noram Geiger CNP And sodium chloride (PF) (NS) [...] AM: Laboratory and Microbiology documented in this [id number] Consult note* Domenica Torre RN - 11/30/2023 [...] Balance - Static: Supervision, without UE support Type Rolling Machine Operator - Standing Static: (no device) Standing Balance - Dynamic: Stand by assist, Contact guard assist (without device; sba/ supervisionwith rollator) Type Rolling Machine Operator - Standing Dynamic: (trialed with and without rollator) Loss of Balance- Standing Dynamic: (left path deviation unsteadiness without device; no LOB with use of rollator and gait steadiness much improved.) Bed Mobility Rolling: Modified independent, Head of bed flat Supine to Sit: Modified independent, Head of bed flat Sit to Supine: (NT: pt up in chair post PT session) Type Rolling Machine Operator: (none) Transfers Sit to Stand: Stand by assist Bed to Chair: Stand by assist, Contact guard assist (no device) Stand Pivot Transfers: Stand by assist, Contact guard assist (no device) Type Rolling Machine Operator: (no AD) Additional Transfer Trial 2: Yes Sit to Stand Trial 2: Stand by assist (from chair with karin ue support) Type Rolling Machine Operator Trial 2: BUE Additional Transfer Trial 3: Yes Sit to Stand Trial 3: Stand by assist (from locked rollator seat) Type Rolling Machine Operator Trial 3: (locked rollator handles) Gait/Locomotion Gait [...] O2;) Prior Level of Function Level of [place] - Transfers/Ambulation/Mobility: Independent with functional transfers, Independent with household ambulation, Independent with community ambulation (no AD for in home ambulation, intermitant use of cane in community for longer distances) Level of [place] - ADLs: Independent Level of [place] - Homemaking: ( takes care of all [...] at discharge. Pt declined PT services at [facility]. Pt up in chair post PT session. [...] Estimated Energy Needs Total Energy Estimated Needs: 3349-4936 kcal/d Method for Estimating Needs: 25-30 kcal/kg current wt Total Protein Estimated Needs: 65 g/d Method for Estimating Needs: 1 g/kg current wt Grazyna Obregon RDN, LD, CLC Office * Chaya Mayfield RN - 11/29/2023 9:30 AM ESTAssociated Order(s): IP CONSULT TO DIRECTOR GAME Met with pt for diabetes education. States [...] 4:07 PM ESTAssociated Order(s): IP CONSULT TO CAFE TEAM MEMBER See earlier consult * Gaudencio Pabon MD - 11/27/2023 2:50 PM EST Patient Name: Enoc Armando MR #: [id number] : 1945 Physicians: Ryley Jeter MD (Family); [...] COVID-19 infection, and then was admitted in [facility]. At that time he was having respiratory failure, and also was having bilateral infiltrates and was found with echocardiogram with ejection fraction of 35%. At [facility], patient was treated with BiPAP, [...] failure, [place] [address], And troponin of 9000. Patient also had [...] Information: I have reviewed the patient's allergies. Otfaqoo-bor-fvy reductase inhibitors Review of Systems: Review of [...] Bilateral infrahilar patchy opacities, concerning for pneumonia. [employer] Workstation ID: [id number] Echocardiogram complete (Results [...] on IV azithromycin Patient on ceftriaxone From [facility] 5 weeks ago patient was [...] the patient is stable. Previous x-ray at [facility] had shown congestive changes and [...] meaning can be extrapolated by contextual derivation. Mray Plata MD - 11/27/2023 7:20 AM ESTAssociated Order(s): IP CONSULT TO ENDOCRINOLOGY Patient ID: Patient Name: Enoc Armando Admit Date: 11/27/2023 MR #: [id number] : 1945 Current location: [facility] Physicians: Ryley Jeter MD (Family); [...] CHF, hypertension, hyperlipidemia, emphysema who presented to [facility] emergency department with a complaint of [...] T CO2 17. He was transferred to [facility] for further evaluation and treatment. At [...] platelet count 220,000 Allergies: Allergies Allergen Reactions Exipbva-Rny-Sjq Reductase Inhibitors Muscle cramps Home Medications: Outpatient [...] Q12H DIDI ipratropium-albuteroL 3 mL Inhalation Q4H [facility] metoprolol succinate 25 mg Oral Daily [...] initially he was hospitalized at [facility] on BiPAP. Communication is a bit [...] Information: I have reviewed the patient's allergies. Whyazqd-uvu-zry reductase inhibitors Home Medications: Outpatient Medications as [...] days Lab Units 11/27/23 0540 11/27/23 0332 11/27/23325 WBC K/mcL -- -- 23.69* HGB g/dL [...] Enoc Armando Admit Date: 1261205 MR #: [id number] : 1945 Physicians: Ryley Jeter MD (Family); Ger Bansal DO (Referring) Julia Parker MD documented in this [id number] History and physical note* Norma Geiger CNP - 11/27/2023 3:12 AM EST [facility] -- [facility] Patient Name: Enoc Armando : 1945 MR #: [id number] Admit Date: 11/27/2023 Physicians: Ryley Jeter MD (Family); Ger Bansal DO (Referring) Enoc Armando is a 77 y.o. male patient of Ryley Jeter MD with history of HTN, HLD, DM Type I, CKD, COPD, chronic hypoxemic respiratory failure who presented to [facility] with respiratory distress . Severe [...] DKA protocol. 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 The patient states [...] discomfort with associated diaphoresis. On arrival to [facility], he was placed on NIPPV [...] Information I have reviewed the patient's allergies. Tdxcsnu-dfv-pim reductase inhibitors Home Medications Home medications were [...] respiratory failure who presented to [facility] with respiratory distress . 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 EMS reports an O2 level in [...] ask the patient if he had a greenbelt and he said yes. Patient sees Dr. Small at [place] and is scheduled to have a stress test next week. Patient has denied any chest pain his entire time here. I did speak to the greenbelt on-call Dr. Parker and she agreed with a dose of IV Lasix and starting the patient on heparin which will be done. Patient is improved at present but we will continue to monitor the patient until a bed becomes available at [place]. The patient has been accepted by the [...] performed using a different testing methodology at [facility] than [facility]. Direct result comparisons should only be [...] is performed using different testing methodology at [facility] than at [facility]. Direct result comparisons should only be [...] performed using a different testing methodology at [facility] than at [facility]. Direct result comparisons should only be [...] TROPONIN I, HIGH SENSITIVITY ED Course & [facility] ED Course as of 11/27/23 0106 WedNov 26, 2023 2142 Twelve-lead EKG interpreted by myself at 2120 1 sinus tachycardia at 113 2 left axis deviation3 nons[address] ST-T wave changes [MS] 2249 Troponin I, High Sensitivity(!!): 3,473 [MS] ED Course User Index [MS] Ger Bansal DO Diagnoses as of 11/27/23 0106 NSTEMI (non-ST elevated myocardial infarction) ([facility]/HCC) MADONNA (acute kidney injury) ([facility]/HCC) Acute combined systolic and diastolic congestive [...] Ghassan Tovar 11/26/2023 10:02 PM Dictation workstation: [id number] Medical Decision Making Patient will be transferred in stable condition to [facility] in [place]. 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 EMS reports an O2 level in [...] ask the patient if he had a greenbelt and he said yes. Patient sees Dr. Small at [place] and is scheduled to have a stress test next week. Patient has denied any chest pain his entire time here. I did speak to the greenbelt on-call Dr. Parker and she agreed with a dose of IV Lasix and starting the patient on heparin which will be done. Patient is improved at present but we will continue to monitor the patient until a bed becomes available at [place]. The patient has been accepted by the [...] performed using a different testing methodology at [facility]. Direct result comparisons should only be [...] is performed using different testing methodology at [facility]. Direct result comparisons should only be [...] performed using a different testing methodology at [facility] than [facility]. Direct result comparisons should only be [...] Course & MDM ED Course as of 11/27/236 WedNov 26, 2023 2142 Twelve-lead EKG interpreted by myself at 2120 1 sinus tachycardia at 113 2 left axis deviation3 nonspecific ST-T wave changes [MS] 2249 Troponin I, High Sensitivity(!!): 3,473 [MS] ED Course User Index [MS] Ger Bansal DO Diagnoses as of 11/27/23105 NSTEMI (non-ST elevated myocardial infarction) ([facility]/HCC) MADONNA (acute kidney injury) ([facility]/HCC) Acute combined systolic and diastolic congestive [...] Ghassan Tovar 11/26/2023 10:02 PM Dictation workstation: [id number] Medical Decision Making Patient will be transferred in stable condition to [facility] in [place]. Procedure Critical Care Performed by: Ger Bansal [...] another facility Ger Bansal DO 11/27/23 0119 [facility] Work Phone: 1(369) 306-227401-02-2024 History of Present illness Narrative* Mayr Vargas MD - 11/02/2023 4:50 PM EST Patient called and reported that he needs Humalog Rx changed due to formulary change. Rx mailed forAdmelog Solostar 15 ml, 11 refills. CD documented in this [id number] History of Present illness Narrative* Woo Small MD - 10/21/2023 9:00 AM EST General Cardiology New Patient Clinic Consult [facility], Heart [facility] Vascular 10/21/2023 Woo Small MD [address] [place] [address] Medical [facility] [id number] Patient: Enoc Armando Date [...] 6 months (around 04/21/2024). Woo Small MD, [facility] Non-Invasive Cardiology [facility] P:[phone] F:[phone] History of Present Illness: Enoc Armando is a 77 y.o. man with a past medical history of insulin-dependent diabetes for 30 years, history of tobacco use, recent COVID infection with systolic dysfunction ejection fraction ranging from 35 to 45% who presents today to establish care. Patient states that he was critically ill andhospitalized at [facility], on BiPAP. Prior to hospitalization patient [...] 25.50 Types: Cigarettes Smokeless Tobacco Never Allergies: Uhxbhhf-swp-gri reductase inhibitors All of the information has [...] appropriate conversation Cardiovascular Studies: Echocardiogram reviewed from [facility], 10/11/2023 moderately decreased ejection fraction estimated at [...] Total Cholesterol: 156 mg/dL documented in this [id number] Instructions* Patient Instructions* Luisa Easley RN - 10/21/2023 8:54 AM EST How to Contact your Care Team: Provider: Dr. Woo Small MD Clinic Nurse: Luisa Easley RN REFILLS: When in need for refills please call your care team or the office at [phone]. Please include medication name, pharmacy name, and [...] questions please contact your care team or [phone]. documented in this [id number] Nurse Note* Moody Gorman RN - 10/13/2023 7:25 PM EST Pt IVs removed intact, home O2 has just been delivered and family given instruction by [employer]. Pt leaving by wheelchair to discharge doors, daughter driving. [facility]2023 Nurse Note* Moody Gorman RN - [...] - 10/11/2023 10:00 AM EST , Alice ([phone]), called and requesting and update. Update provided. [...] RR 24. documented in this [facility] Work Phone: 1([phone]) 549-571812-13-2023 Nurse Note* Geni Lynne RN - 10/13/2023 3:56 PM EST Discharge instructions reviewed with pt. Printed and verbal education given on covid, chf, and homeoxygen use/safety. Pt verbalized understanding of all instructions. Walker rx written by dr rivera. Awaiting home oxygen set up. [facility]2023 Hospital Discharge instructions* Discharge Instr - [...] or approved for treating a specific patient. [employer]. and its affiliatesdisclaim any warranty or liability relating to this information or the use thereof. The use of thisinformation is governed by the Terms of Use, available at https://www.Zapper.com/en/know/gylxpeqa-evablwwoubelm-ewjyj 2022 [employer]. and its affiliates and/or licensors. All rights [...] or approved for treating a specific patient. [employer]. and its affiliatesdisclaim any warranty or liability relating to this information or the use thereof. The use of thisinformation is governed by the Terms of Use, available at https://www.LigerTailer.com/en/know/azgqhxrl-hpkvtdlwztkek-qhsyk Copyright 2022 [employer]. and its affiliates and/or licensors. All rights [...] Do not take any other prescription drugs, gjut-wtu-mwvwlvz (OTC) drugs, herbals, or diet aids without [...] diet are needed? Ask your doctor or ferry engineer what diet is best for you. The [...] or approved for treating a specific patient. [employer] and its affiliatesdisclaim any warranty or liability relating to this information or the use thereof. The use of thisinformation is governed by the Terms of Use, available at https://www.Zapper.com/en/know/uldcngku-xvubpfvbdypax-uuhou Copyright 2022 [employer]. and its affiliates and/or licensors. All rights reserved. documented in this [facility] Work Phone: 1(114) 808-752512-13-2023 Miscellaneous Notes* Documentation Clarification Note - Vera Mari MD - 10/13/2023 3:06 PM EST PATIENT: ENOC ARMANDO : 1945 ADMIT DATE: 10/11/2023 1:08 AM DISCH DATE: RESPONDING PROVIDER #: [id number] PROVIDER RESPONSE TEXT: Sepsis with associated respiratory [...] hypoxia], hypertensive emergency, hyperglycemia, and elevated troponin. Licensing Worker consult documents Acute hypoxemic respiratory failure. Treatment: [...] current management. documented in this [facility] Work Phone: 1([phone]) 334-207712-13-2023 Note* Documentation Clarification Note - Vera Mari MD - 10/13/2023 3:06 PM EST PATIENT: ENOC ARMANDO : 1945 ADMIT DATE: 10/11/2023 1:08 AM DISCH DATE: RESPONDING PROVIDER #: [id number] PROVIDER RESPONSE TEXT: Sepsis with associated respiratory [...] hypoxia], hypertensive emergency, hyperglycemia, and elevated troponin. Licensing Worker consult documents Acute hypoxemic respiratory failure. Treatment: [...] by: VERA RIVERA MD 10/13/2023 3:05 PM [facility] Work Phone: 1(853) 742-785012-13-2023 History of Present illness Narrative* JENNIFER Almanza [...] is weak due to symptoms of COVID. GURPREET requested Dr. Rivera send Pt home with [...] Prior Function Per Pt/Caregiver Report Level of [place]: Independent with ADLs and functional transfers, Independent [...] length Comments/Distance (ft) 1: 88ft Outcome Measures: [facility] Basic Mobility Turning from your back [...] Bathroom Equipment: None Prior Function: Level of [place]: Independent with ADLs and functional transfers, Independent [...] Function: Gross Grasp: Functional Coordination: Functional Outcome Measures:[facility] Daily Activity Putting on and taking [...] 10/13/23 Expected End: 10/27/23 * Phylicia Reyes, CAPPING MACHINE OPERATOR-ROLLED GOLD PLATER, DNP - 10/13/2023 10:18 AM EST Subjective Data: Patient examined and denies any chest pain/pressure/discomfort, palpitations, worsening SOB, dizziness, or lower extremity edema. He does not currently follow with a Histology Technician. Overnight Events: None Objective Data: Last Recorded [...] result verified on 10/11/2023 0209 on specimen/case [id number] called with component [facility] for procedure Troponin I, High Sensitivity, [...] 13-18 <7.5 7-12 <8.0 0- 6 7.5-8.5 [employer]. Diabetes Care 33(S1), Nov 2009. 02/12/2023 08:57 AM 7.7 % Final Comment: Diagnosis of Diabetes-Adults Non-Diabetic: < or = 5.6% Increased risk for developing diabetes: 5.7-6.4% Diagnostic of diabetes: > or = 6.5% . Monitoring of Diabetes Age (y) Therapeutic Goal (%) Adults: >18 <7.0 Pediatrics: 13-18 <7.5 7-12 <8.0 0- 6 7.5-8.5 [employer]. Diabetes Care 33(S1), Nov 2009. [...] any clarifications regarding the patient's care. CULLEN Huff, JOIE * Delmar Mcgowan RRT - 10/13/2023 9:20 [...] 2L with activity * Taylor Gamez RDN, LD - 10/13/2023 9:00 AM EST Nutrition Assessment [...] Assessment Information (1): baseline creat 1.6-1.9 per insulation board calender operator; A1C 7.4 09/27, 7.6 8/l Nutrition Diagnosis [...] follow this closely Transfer to floor Ayanna Albret DO * Tyrone Zimmerman MD - 10/12/2023 [...] result verified on 10/11/2023 0209 on specimen/case [id number] called with component [facility] for procedure Troponin I, High Sensitivity, [...] 13-18 <7.5 7-12 <8.0 0- 6 7.5-8.5 [employer]. Diabetes Care 33(S1), Nov 2009. 02/12/2023 08:57 AM 7.7 % Final Comment: Diagnosis of Diabetes-Adults Non-Diabetic: < or = 5.6% Increased risk for developing diabetes: 5.7-6.4% Diagnostic of diabetes: > or = 6.5% . Monitoring of Diabetes Age (y) Therapeutic Goal (%) Adults: >18 <7.0 Pediatrics: 13-18 <7.5 7-12 <8.0 0- 6 7.5-8.5 [employer]. Diabetes Care 33(S1), Nov 2009. [...] around 1.8,arthritis and smoking. Came to ED [facility] on 10/11/2023 complaining of shortness of [...] to discharge. If not possible, should have [facility] as an outpatient. - Due [...] 10/11/2023 6:18:47 PM Transthoracic Echo (TTE) Complete [place] [id number], TRANSTHORACIC ECHOCARDIOGRAM REPORT Patient Name: ENOC Titus TR Reading Physician: [id number] Jose Enrique Molina MD Study Date: 10/11/2023 Ordering Provider: [id number] VERA RIVERA MRN/PID: [id number] Fellow: Nurse: Jana See RN Date of /Age: 2 1945 / 77 years Audit Control Clerk: Cecilio Gabriel RDCS Gender: M Additional Staff: Height: 170.18 cm Admit Date: Weight: 71.67 kg Admission Status: Inpatient - Routine BSA: 1.83 m2 Department Location: [address]-ICU Blood Pressure: 141 /71 mmHg Study Type: TRANSTHORACIC ECHO (TTE) COMPLETE Diagnosis/ICD: Acute on chronic systolic (congestive) heart failure (CHF)-I50.23 CPT Codes: Echo Complete w Full Doppler-38362 Study Detail: The following Echo studies were [...] LA Area A2C: 16.2 cm2 LA Major [place] A4C: 5.3 cm LA Major [place] A2C: 5.0 cm LA Volume Index: 23.9 ml/m2 LA Vol A4C: 43.7 ml LA Vol A2C: 43.3 ml LV SYSTOLIC FUNCTION BY 2D PLANIMETRY (MOD): Normal Ranges: EF-A4C View: 45.6 % (>=55%) EF-A2C View: 40.9 % EF-Biplane: 44.2 % AORTIC VALVE: Normal Ranges: LVOT Diameter: 1.80 cm (1.8-2.4cm) RIGHT VENTRICLE: RV Basal 3.49 cm RV Mid 2.45 cm RV Major 7.8 cm [id number] Jose Enrique Molina MD Electronically signed on 10/11/2023 at 9:43:19 AM Final XR chest 1 view Narrative: Interpreted By: Kahlil Fagan, STUDY: XR CHEST 1 VIEW; 10/11/2023 1:30 am INDICATION: Signs/Symptoms:Cough. COMPARISON: Chest radiograph 11/04/2012 ACCESSION NUMBER(S): [id number] ORDERING CLINICIAN: AURY ROUSE FINDINGS: SUPPORT DEVICES: [...] Kahlil Fagan 10/11/2023 1:33 AM Dictation workstation: [id number] Physical Exam Constitutional: Appearance: Normal appearance. HENT: [...] on sliding scale insulin. A1c 7.4 appreciate certified pest control technician input. Oxygen as tolerated, currently liters. PT, OT consult for generalized weakness. Vitamin D, zinc DVT prophylaxis on heparin. CODE STATUS full. Disposition in 24 to 48 hours. Total time spent 35 minutes. Vera Rivera MD * Consuelo Fischer RN - 10/11/2023 2:04 PM EST 10/11/23 5145 Discharge Planning Living Arrangements Spouse/significant other Support [...] Fischer BSN/RN-TCC documented in this [facility] Work Phone: [phone]) 739-312612-13-2023 Hospital course Narrative* Vera Mari MD - [...] Your Medications These medications were sent to [facility] [address] [address] metoprolol succinate XL 25 mg 24 hr tablet These medications were sent to [facility] [address] [place] [address] Hours: 8 AM to 5:30 Mon-Fri, 8 [...] up with home oxygen. Patientalso was sore certified pest control technician discharged his dexamethasone and antibiotics as cultures seems to be negative. Clinically stable. Patient also had elevated troponin secondary due to above seen by cardiology, Dr. De Dios, started on metoprolol, aspirin initially which which can be changed to 81 mg daily. Jaundice and Zetia also were started. Patient also has seen Dr. Albert, insulation board calender operator for acute on chronic kidney disease secondary [...] Department Center 02/24/2024 1:45 PM Maricruz Albert, CAPPING MACHINE OPERATOR-[facility] [id number] [facility] Dr. Albert, nephrology in [address] De Dios, cardiology in 2 to 4 weeks. Total discharge time 40 minutes. Vera Rivera MD documented in this [facility] Work Phone: [phone] 193-670812-13-2023 Nurse Note* Moody Gorman RN - 10/13/2023 12:27 PM EST Pt is AAO. He is using his call light today when he wants to use the bathroom. He has had loose stools, but less frequent. [facility] Work Phone: [phone] 570-881412-12-2023 Nurse Note* Moody Gorman RN - 10/12/2023 5:25 PM EST Pt is alert to situation at this time and able to explain his diagnosis, but still impulsive when moving and unsteady. [facility] Work Phone: [phone] 196-513312-12-2023 Nurse Note* Moody Gorman RN - 10/12/2023 4:42 PM EST Pt continues to try and leave the bed and chair without his call light. When asked what he needs orwhere he wants to go, pt is unable to articulate his motivation except the general desire to move around. Repeated re-education is not working. [facility] Work Phone: [phone] 444-154612-12-2023 Nurse Note* Moody Gorman RN - 10/12/2023 3:45 PM EST Answered chair alarm. Pt is becoming increasingly confused and restless in general. He is aware of himself and other people, but is becoming impulsive in getting out of bed or his chair. Pt ambulatedto the bathroom, O2 increased to 5L for movement per RT. Pt assisted back to bed, bed alarm activated. [facility] Work Phone: [phone] 400-670512-12-2023 Nurse Note* Moody Gorman RN - 10/12/2023 8:00 AM EST Pt is AAO, uses his call light appropriately. Pt currently on RA. Pt c/o weakness in his legs, but is able to sit up at the edge of the bed and walk with a walker to lean on for stability. [facility] Work Phone: [phone] 715-634812-12-2023 Plan of care note* Care Plan - [...] to address these barriers include repeated re-orientation. [facility] Work Phone: 1([phone]) 179-614212-12-2023 Plan of care note* Care Plan - Jody Ball RN - 10/12/2023 5:59 AM EST The clinical goals for the shift include Blood sugar will return to normal limits by the end of theshift Over the shift, Pt tolerated BIPAP well. No signs of respiratory distress. [facility]12-11-2023 Consult note* Tyrone Zimmerman MD - [...] around 1.8,arthritis and smoking. Came to ED [facility] on 10/11/2023 complaining of shortness of [...] result verified on 10/11/2023 0209 on specimen/case [id number] called with component [facility] for procedure Troponin I, High Sensitivity, [...] 13-18 <7.5 7-12 <8.0 0- 6 7.5-8.5 [employer] Diabetes [employer]. Diabetes Care 33(S1), Nov 2009. 02/12/2023 08:57 AM 7.7 (A) % Final Comment: Diagnosis of Diabetes-Adults Non-Diabetic: < or = 5.6% Increased risk for developing diabetes: 5.7-6.4% Diagnostic of diabetes: > or = 6.5% . Monitoring of Diabetes Age (y) Therapeutic Goal (%) Adults: >18 <7.0 Pediatrics: 13-18 <7.5 7-12 <8.0 0- 6 7.5-8.5 [employer]. Diabetes Care 33(S1), Nov 2009. [...] Family history unknown: Yes Allergies: Prednisone and Qbkgmqq-ffc-arv reductase inhibitors Inpatient Medications: Scheduled medications Medication [...] around 1.8,arthritis and smoking. Came to ED [facility] on 10/11/2023 complaining of shortness of [...] to discharge. If no t possible, have [facility] as an outpatient. - Due [...] Code Status: Full Code Tyrone Zimmerman MD [facility] Work Phone: [phone]) 579-821312-11-2023 Consult note* Tyrone Zimmerman MD - 10/11/2023 [...] around 1.8,arthritis and smoking. Came to ED [facility] on 10/11/2023 complaining of shortness of [...] result verified on 10/11/2023 0209 on specimen/case [id number] called with component [facility] for procedure Troponin I, High Sensitivity, [...] 13-18 <7.5 7-12 <8.0 0- 6 7.5-8.5 [employer]. Diabetes Care 33(S1), Nov 2009. 02/12/2023 08:57 AM 7.7 (A) % Final Comment: Diagnosis of Diabetes-Adults Non-Diabetic: < or = 5.6% Increased risk for developing diabetes: 5.7-6.4% Diagnostic of diabetes: > or = 6.5% . Monitoring of Diabetes Age (y) Therapeutic Goal (%) Adults: >18 <7.0 Pediatrics: 13-18 <7.5 7-12 <8.0 0- 6 7.5-8.5 [employer] Diabetes [employer]. Diabetes Care 33(S1), Nov 2009. [...] has a past medical history of Diabetes ([facility]/HCC). Past Surgical History: He has no past surgical history on file. Social History: He reports that he has been smoking cigarettes. He has never used smokeless tobacco. He reports that he does not drink alcohol and does not use drugs. Family History: Family History Family history unknown: Yes Allergies: Prednisone and Ypvwhml-tnl-fpl reductase inhibitors Inpatient Medications: Scheduled medications Medication [...] around 1.8,arthritis and smoking. Came to ED [facility] on 10/11/2023 complaining of shortness of [...] to discharge. If no t possible, have [facility] as an outpatient. - Due [...] Full Code Tyrone Zimmerman MD * Ayanna Albert, DO - 10/11/2023 12:13 PM ESTAssociated Order(s): IP CONSULT TO CAFE TEAM MEMBER Reason For Consult Acute respiratory failure History [...] has a past medical history of Diabetes ([facility]). Surgical History He has no past surgical history on file. Social History He reports that he has been smoking cigarettes. He has never used smokeless tobacco. He reports that he does not drink alcohol and does not use drugs. Family History Family History Family history unknown: Yes Allergies Prednisone and Qypnrni-yzk-aqy reductase inhibitors Review of Systems A full [...] Albert DO documented in this [facility] Work Phone: 1([phone]) 509-771712-11-2023 Consult note* Ayanna Albert DO - 10/11/2023 12:13 PM ESTAssociated Order(s): IP CONSULT TO CAFE TEAM MEMBER Reason For Consult Acute respiratory failure History [...] has a past medical history of Diabetes ([facility]). Surgical History He has no past surgical history on file. Social History He reports that he has been smoking cigarettes. He has never used smokeless tobacco. He reports that he does not drink alcohol and does not use drugs. Family History Family History Family history unknown: Yes Allergies Prednisone and Zunqmfy-xew-aup reductase inhibitors Review of Systems A full [...] procedures Principal Problem: COVID-19 Ayanna Albert DO [facility] Work Phone: 1([phone]) 482-572912-11-2023 Plan of care note* Care Plan - Vera Mari MD - 10/11/2023 11:49 AM EST Patient's reviewed. Currently on 5 L of oxygen by nasal cannula, sitting in bed. wants him to be full code with DNI. Continue with current management. [facility] Work Phone: 1([phone]) 306-964412-11-2023 Nurse Note* Geni Wall RN - 10/11/2023 10:00 AM EST , Alice ([phone]), called and requesting and update. Update provided. She is Enoc's POA and requests in the event of cardiac he receive CPR and life sustaining medications. She is unsure if she wants him intubated and wants more time to think about it. She reported she will be visiting [facility] today around 11am. [facility]12-11-2023 Nurse Note* Zoila Mota RN - [...] Patient currently sleeping, HR 112, RR 24. [facility] Work Phone: [phone] History and physical note* Praful Pineda MD [...] Family history unknown: Yes Allergies Prednisone and Zhqdmur-qfz-jkf reductase inhibitors Medications Prior to Admission Medication [...] Straw, Yellow Appearance, Urine Clear Clear Specific [place], Urine 1.014 1.005 - 1.035 pH, Urine [...] Signs/Symptoms:Cough. COMPARISON: Chest radiograph 11/04/2012 ACCESSION NUMBER(S): [id number] ORDERING CLINICIAN: AURY ROUSE FINDINGS: SUPPORT DEVICES: [...] Kahlil Fagan 10/11/2023 1:33 AM Dictation workstation: [id number] Assessment/Plan 77-year-old male, smoker, with a past [...] are not fully corrected) Praful Pineda MD [facility] Work Phone: 1([phone]) 529-876812-11-2023 History and physical note* Praful Pineda MD [...] History Past Medical History: Diagnosis Date Diabetes ([facility]) Pertinent medical history also documented in my [...] Family history unknown: Yes Allergies Prednisone and Jbwktmd-lqd-zkf reductase inhibitors Medications Prior to Admission Medication [...] Straw, Yellow Appearance, Urine Clear Clear Specific [place], Urine 1.014 1.005 - 1.035 pH, Urine [...] Signs/Symptoms:Cough. COMPARISON: Chest radiograph 11/04/2012 ACCESSION NUMBER(S): [id number] ORDERING CLINICIAN: AURY ROUSE FINDINGS: SUPPORT DEVICES: [...] Kahlil Fagan 10/11/2023 1:33 AM Dictation workstation: [id number] Assessment/Plan 77-year-old male, smoker, with a past [...] Pineda MD documented in this [facility] Work Phone: 1(343) 716-415012-11-2023 Emergency department Note* Aury Rouse, - 10/11/2023 1:08 AM ESTAssociated Order(s): Critical [...] ED and establish an IV.Patient admits to 40-xxiu-vjyp history of cigarette use and currently smokes 1 pack/day. Activity makes his symptoms worse rest helps to some extent. History provided by: EMS personnel and patient linux support engineer used: No Physical Exam Vitals and nursing note reviewed. Constitutional: General: He is awake. He is in acute distress. Appearance: Normal appearance. He is overweight. He is ill-appearing. HENT: Head: Normocephalic and atraumatic. Right Ear: External ear normal. Decreased hearing noted. Left Ear: External ear normal. Decreased hearing noted. Nose: Congestion and rhinorrhea present. Rhinorrhea is clear. Mouth/Throat: Lips: [place]. Mouth: Mucous membranes are moist. Pharynx: Oropharynx [...] specimens andhas been validated for use at [facility]. Negative results do not preclude COVID-19 [...] in ng/mL Fibrinogen Equivalent Units (FEU). Per field artillery fire control man's instructions for use, a value of less [...] performed using a different testing methodology at [facility] than at other [facility]. Direct result comparisons should [...] performed using a different testing methodology at [facility] than at other [facility]. Direct result comparisons should only be [...] is performed using different testing methodology at [facility] than at other [facility]. Direct result comparisons should only be [...] Color, Urine Yellow Appearance, Urine Clear Specific [place], Urine 1.014 pH, Urine 5.0 Protein, Urine [...] and has been validated for use at [facility]. Negative results do not preclude Influenza A/B infections, and should not be used as the sole basis for diagnosis, treatment, or other management decisions. IfInfluenza A/B and RSV PCR results are negative, testing for Parainfluenza virus, Adenovirus and Metapneumovirus is routinely performed for [facility] pediatric oncology and intensive care inpatients, and isavailable on other patients by placing an add-on request. RSV PCR - Normal RSV PCR Not Detected Narrative: This assay is an FDA-cleared, in vitro diagnostic nucleic acid amplification test for the detectionof RSV from nasopharyngeal specimens, and has been validated for use at [facility]. Negative results do not preclude RSV infections, and should not be used as the sole basis for diagnosis, treatment, or other management decisions. If Influenza A/B and RSV PCR results are negative, testing for Parainfluenza virus, Adenovirus and Metapneumovirus is routinely performed for pediatric oncology and intensive care inpatients at [facility], and is available on other patients by [...] Abnormality Status --------- ------ Urinalysis with Reflex M...[[id number]] Abnormal Final result Extra Urine Orosco Tube[[id number]] Final result Please view results for these tests on the individual orders. TROPONIN SERIES- (INITIAL, 1 HR) Narrative: The following orders were created for panel order Troponin I Series, High Sensitivity (0, 1 HR). Procedure Abnormality Status --------- ------ Troponin I, High Sensiti...[[id number]] Abnormal Final result Troponin, High Sensitivi...[[id number]] Abnormal Final result Please view results for [...] Kahlil Fagan 10/11/2023 1:33 AM Dictation workstation: [id number] Critical Care Performed by: Aury Rouse DO [...] Q waves inthe anterior precordial leads. The OR interval is 148 ms. QRS durations 82 [...] a little. documented in this [facility] Work Phone: 1(568) 141-210612-11-2023 Emergency department Triage note* VANDANA Cosby - 10/11/2023 1:08 AM EST Pt brought in via EMS for fevers and chills. Pt reports being ill for the last 2-3 days. Pt states that he has been having fevers, chills, weakness, fatigue, headaches, body aches with some SOB. Pt was given a breathing treatment in route and states that it did help a little. [facility] Work Phone: 1(354) 225-329312-11-2023 Physician Emergency department Note* Aury Rouse DO [...] ED and establish an IV.Patient admits to [id number]-[id number] history of cigarette use and currently smokes 1 pack/day. Activity makes his symptoms worse rest helps to some extent. History provided by: EMS personnel and patient linux support engineer used: No Physical Exam Vitals and nursing note reviewed. Constitutional: General: He is awake. He is in acute distress. Appearance: Normal appearance. He is overweight. He is ill-appearing. HENT: Head: Normocephalic and atraumatic. Right Ear: External ear normal. Decreased hearing noted. Left Ear: External ear normal. Decreased hearing noted. Nose: Congestion and rhinorrhea present. Rhinorrhea is clear. Mouth/Throat: Lips: [place]. Mouth: Mucous membranes are moist. Pharynx: Oropharynx [...] specimens andhas been validated for use at [facility]. Negative results do not preclude COVID-19 [...] in ng/mL Fibrinogen Equivalent Units (FEU). Per field artillery fire control man's instructions for use, a value of less [...] performed using a different testing methodology at [facility] than at other [facility]. Direct result comparisons should [...] performed using a different testing methodology at [facility] than at other [facility]. Direct result comparisons should only be [...] is performed using different testing methodology at [facility] than at other [facility]. Direct result comparisons should only be [...] Color, Urine Yellow Appearance, Urine Clear Specific [place], Urine 1.014 pH, Urine 5.0 Protein, Urine [...] and has been validated for use at [facility]. Negative results do not preclude Influenza A/B infections, and should not be used as the sole basis for diagnosis, treatment, or other management decisions. IfInfluenza A/B and RSV PCR results are negative, testing for Parainfluenza virus, Adenovirus and Metapneumovirus is routinely performed for [facility] pediatric oncology and intensive care inpatients, and isavailable on other patients by placing an add-on request. RSV PCR - Normal RSV PCR Not Detected Narrative: This assay is an FDA-cleared, in vitro diagnostic nucleic acid amplification test for the detectionof RSV from nasopharyngeal specimens, and has been validated for use at [facility]. Negative results do not preclude RSV infections, and should not be used as the sole basis for diagnosis, treatment, or other management decisions. If Influenza A/B and RSV PCR results are negative, testing for Parainfluenza virus, Adenovirus and Metapneumovirus is routinely performed for pediatric oncology and intensive care inpatients at [facility], and is available on other patients by [...] Abnormality Status --------- ------ Urinalysis with Reflex M...[[id number]] Abnormal Final result Extra Urine Orosco Tube[[id number]] Final result Please view results for these tests on the individual orders. TROPONIN SERIES- (INITIAL, 1 HR) Narrative: The following orders were created for panel order Troponin I Series, High Sensitivity (0, 1 HR). Procedure Abnormality Status --------- ------ Troponin I, High Sensiti...[[id number]] Abnormal Final result Troponin, High Sensitivi...[[id number]] Abnormal Final result Please view results for [...] Kahlil Fagan 10/11/2023 1:33 AM Dictation workstation: [id number] Critical Care Performed by: Aury Rouse DO [...] Q waves inthe anterior precordial leads. The OR interval is 148 ms. QRS durations 82 ms. QTc is 455 ms axis is 39 degrees. Diagnoses as of 10/12/23514 COVID-19 Acute respiratory failure with hypoxia (CMS/HCC) Acute congestive heart failure, unspecified heart failure type (CMS/HCC) Pneumonia of both lungs due to infectious organism, unspecified part of lung Aury Rouse DO 10/12/23514 [facility] Work Phone: 1(336) 889-556212-08-2023 History of Present illness Narrative* Mary Vargas [...] being taken. Patient does not see a ballistics tester. Eye exam is current. Currently taking: No [...] bedside for hypoglycemia at night. 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 Had bilat cataract extraction Dr. Lopez. Sees Dr. Browne in [place] every year routinely.Has blurred vision with low [...] Call if BG consistently <70 or >250. [phone] Continue to check blood sugar 3 times [...] MD 10/10/23 8:04 PM documented in this [id number] Evaluation + Plan note* Assessment & Plan Note - Ayanna Albert DO - 08/25/2023 2:39 PM EDTAssociated Problem(s): CKD (chronic kidney disease) Doing well with DM HTN well controlled Sees Endocrinology. Has Type 1 DM On Statin Not on nephrotoxins [facility] Work Phone: 1(758) 326-980410-25-2023 Miscellaneous Notes* Assessment & Plan Note - Ayanna Albert DO - 08/25/2023 2:39 PM EDTAssociated Problem(s): CKD (chronic kidney disease) Doing well with DM HTN well controlled Sees Endocrinology. Has Type 1 DM On Statin Not on nephrotoxins [facility] Work Phone: 1(561) 440-841910-25-2023 History of Present illness Narrative* Ayanna Albert [...] Nicotine Abuse documented in this [facility] Work Phone: 1(200) 825-811804-21-2023 History of Present illness Narrative* Paty Ortega, TRISTAN - 02/19/2023 1:14 PM EDT Images from [...] being taken. Patient does not see a ballistics tester. Eye exam is current. Currently taking: No [...] at HS. PLAN: See below. 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 Had bilat cataract extraction Dr. Lopez. Sees Dr. Browne in [place] every year routinely. Nephropathy: Positive Creat: 1.09; [...] Call if BG consistently <70 or >250. [phone] Continue to check blood sugar 4 times [...] CNP 02/19/23 10:25 AM documented in this [id number] History of Present illness Narrative* Paty Ortega [...] being taken. Patient does not see a ballistics tester. Eye exam is current. Currently taking: No [...] Reduce lunch and HS insulin. 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 Had bilat cataract extraction Dr. Lopez. Sees Dr. Browne in [place] every year routinely. Nephropathy: Positive Creat: 1.09; [...] Call if BG consistently <70 or >250. [phone] Continue to check blood sugar 4 times [...] CNP 10/19/22 10:25 AM documented in this [id number] History of Present illness Narrative* Paty Ortega CNP - 06/19/2022 9:45 AM EDT Images from the original note were not included. Patient ID: Enoc Amrando is a 76 y.o. male Subjective: HPI: [...] being taken. Patient does not see a ballistics tester. Eye exam is current. Currently taking: No [...] Reduce lunch and HS insulin. 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 Had bilat cataract extraction Dr. Lopez. Sees Dr. Browne in [place] every year routinely. Nephropathy: Positive Creat: 1.09; [...] labs 8.8.. Will refer to Dr. Melendez, seenpreviously for [...] Call if BG consistently <70 or >250. [phone] Continue to check blood sugar 4 times [...] MD 06/19/22 11:20 PM documented in this [id number] History of Present illness Narrative* Mary Vargas [...] being taken. Patient does not see a ballistics tester. Eye exam is current. Currently taking: No [...] Reduce lunch and HS insulin. 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 Had bilat cataract extraction Dr. Lopez. Sees Dr. Browne in [place] every year routinely. Nephropathy: Positive Creat: 1.09; [...] to check stenosis. To be done in [place] office. 2. Education: Reviewed ABCs of diabetes [...] Call if BG consistently <70 or >250. [phone] Continue to check blood sugar 4 times [...] MD 02/13/22 11:20 PM documented in this [id number] History of Present illness Narrative* Paty Ortega, ROLLED GOLD PLATER - 10/13/2021 2:10 PM EST Images from [...] being taken. Patient does not see a ballistics tester. Eye exam is current. Currently taking: No [...] HS. PLAN: See below. CPM Retinopathy: Negative PAPER CUTTER. Exam within last 12 months: yes Date: 10/16/20. Had bilat cataract extraction Dr. Lopez. Sees Dr. Browne in [place] every year routinely. Nephropathy: Negative Creat: 1.08; [...] Call if BG consistently <70 or >250. [phone] Continue to check blood sugar 4 times [...] CNP 10/13/21 2:55 PM documented in this [id number] History of Present illness Narrative* Paty Ortega [...] being taken. Patient does not see a ballistics tester. Eye exam is current. Currently taking: No [...] HS. PLAN: See below. CPM Retinopathy: Negative PAPER CUTTER. Exam within last 12 months: yes Date: 10/16/20. Had bilat cataract extraction Dr. Lopez. Sees Dr. Browne in [place] every year routinely. Nephropathy: Negative Creat: 1.08; [...] Call if BG consistently <70 or >250. [phone] Continue to check blood sugar 4 times [...] CNP 06/20/21 2:55 PM documented in this [id number] History of Present illness Narrative* Mary Vargas [...] being taken. Patient does not see a ballistics tester. Eye exam is current. Currently taking: No [...] HS. PLAN: See below. CPM Retinopathy: Negative PAPER CUTTER. Exam within last 12 months: yes Date: 10/16/20. Had bilat cataract extraction Dr. Lopez. Sees Dr. Browne in [place] every year routinely. Nephropathy: Negative Creat: 1.08; [...] Call if BG consistently <70 or >250. [phone] Continue to check blood sugar 4 times [...] in this encounterOhioHealthDischarge summary Author John Brandon [facility] Note Date/Time April 03, 2025 4:11a m [facility] Medical Records Department [address] [place] [address] Emergency Department Summary 04/03/25 MR#: [id number] Acct: [id number] Name: TRENOC E Rep #:[id number] : 1945 79 From: John Ramirez PCP: Dr. Ryley Jeter MD Status:REG ER Location: ED HPI History of Present Illness Chief Complaint: Shortness of Breath PFSH PFSH Medical History Pneumonia COVID Wears glasses Wears [...] AdvReac Other Verified 04/03/25 00:16 (Glucocorticoids) (steroids) Hihchtj-Dhz-Dhd Reductase AdvReac Other Verified 04/03/25 00:16 Inhibitor [...] Consults: internal medicine only sees Dr. Hwang) [facility] Narrative: The patient was initially tachycardic, tachypneic, [...] to ICU This note was generated with [employer] dictation software. It may contain incorrectwords, spelling, [...] 76.4 H Lymph % (Auto) 13.5 L [place] % (Auto) 7.0 Eos % (Auto) 1.9 [...] congestion and/or pneumonia. Reading [facility] Discharge Plan Triage Chief Complaint: Shortness of [...] MD [Primary Care Provider] - Print Language: Palauan What to do if you have Problems For any increased pain, shortness of breath, bleeding, nausea or vomiting, chestpain, or any unexpected problems, contact your Primary Care Provider. Call [facility] ([phone]) or report to the closest Emergency Room. Call 911 if necessary. 04/03/251 <Electronically signed by John Brandon DO> Cosigner Signature (if applicable): CC: Dr. Ryley Jeter MD ~ Signed [facility] Work Phone: Discharge summary Author Grace [facility] Note Date/Time April 10, 2025 5:09 pm [facility] Medical Records Department [address] [place] [address] Instructions for Home/Discharge Instructions 04/10/25 1527 MR#: [id number] Acct: [id number] Name: ENOC ARMANDO Rep #:[id number] : 1945 79 From: Grace Arnold MD [...] MD; Dr. Grace Arnold MD; Dr. Jose Mooer MD; Dr. Smooth Luis MD ~ Signed [facility] Work Phone: Discharge summary Author Arnulfo [facility] Note Date/Time April 19, 2025 3:48 am [facility] Medical Records Department [address] [place] [address] Emergency Department Summary 04/19/25 MR#: [id number] Acct: [id number] Name: ENOC ARMANDO Rep #:[id number] : 1945 79 From: Arnulfo Jose DO [...] but denies any formal diagnosis of COPD [facility] Medical History Non-STEMI (non-ST elevated myocardial [...] AdvReac Other Verified 04/03/25 00:16 (Glucocorticoids) (steroids) Icofnxx-JSD-IiI Reductase AdvReac Other Verified 04/03/25 00:16 Inhibitor (Rcdtnhw-Ljs-Aux Reductase Inhibitor) Family History Mother COPD (chronic [...] 82.3 H Lymph % (Auto) 10.0 L [place] % (Auto) 5.7 Eos % (Auto) 1.0 [...] Magn[place] 2[place] [address] H Procalcitonin 0.10 POC Glucose 437 H Radiography Diagnostic Testing: Clinical Impression(s) from Imaging Studies Chest X-Ray 04/19/25 01:00 IMPRESSION: Increased mild bilateral pleural effusions. Increased passive atelectatic airspace disease of the lower lobes. Increased pulmonary venous congestion and interstitial edema. Enlarged cardiac silhouette. Reading Location: [place] [address] Chest x-ray as interpreted by the emergency [...] Chronic anemia Disposition Disposition: Acute Care Hospital [facility] What to do if you have Problems For any increased pain, shortness of breath, bleeding, nausea or vomiting, chestpain, or any unexpected problems, contact your Primary Care Provider. Call [facility] ([phone]) or report to the closest Emergency Room. Call 911 if necessary. 04/19/25 0348 <Electronically signed by Arnulfo Jose DO> Cosigner Signature (if applicable): CC: Dr. Ryley Jeter MD ~ Signed [facility] Work Phone: Discharge summary Author Malika Fonseca [facility] Note Date/Time April 22, 2025 1:13 pm [facility] System Medical Records Department [address] [place] [address] Discharge Summary 04/22/25 1301 MR#: [id number] Acct: [id number] Name: ENOC ARMANDO Rep #:[id number] : 1945 79 From: Malika Fonseca DO PCP: Dr. Ryley Jeter MD Status:ADM IN Location: [place] [address] Providers Date of Admission: 04/19/25 Primary Care [...] Referrals / Follow Up: [facility] [Provider Group] - Within 1 Month Ryley Jeter MD [Primary Care Provider] - Within 2 Weeks Disposition Disposition (needs filled in before D/C Order can be placed): Home, Self Care Charges/Coding Visit Charges Inpatient E&M: 97046 Disch Hosp >30min 04/22/25 1313 <Electronically signed by Malika Fonseca DO> Cosigner Signature (if applicable): CC: Dr. Ryley Jeter MD; Dr. Malika Fonseca DO~ Signed [facility] Work Phone: Evaluation note* Diagnosis Type 1 [...] diabetic neuropathy (CMS/HCC) documented in this encounter [facility] Work Phone: Evaluation note* Diagnosis Type [...] heart failure (CMS/HCC) documented in this encounter [facility] Work Phone: evaluation note* Diagnosis 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- Primary Dyslipidemia Other and unspecified hyperlipidemia Congestive heart failure, unspecified HF chronicity, unspecified heart failure type (HCC) documented in this encounter [facility] noteNo assessment information availableWFisher-[facility] Work Phone: Evaluation note* Diagnosis NSTEMI (non-ST elevated myocardial infarction) ([facility])- Primary Acute myocardial infarction, subendocardial infarction, episode of care unspecified MADONNA (acute kidney injury) ([facility]) Acute combined systolic and diastolic congestive heart failure ([facility]) Type 1 diabetes mellitus with other specified complication ([facility]) documented in this encounter [facility] Work Phone: evaluation note* Diagnosis NSTEMI (non-ST elevated myocardial infarction) [...] diabetic neuropathy (Multi) documented in this encounter [facility] Work Phone: Evaluation note* Diagnosis Type [...] with diabetic neuropathy documented in this encounter [facility] Work Phone: Evaluation note* Diagnosis Type [...] [facility]* Diagnosis Coronary 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- Primary documented in [...] of cerebral infarction Coronary 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- Primary Claudication in [...] with diabetic neuropathy documented in this encounter [facility] Work Phone: Evaluation note* Diagnosis Bilateral carotid artery stenosis Occlusion and stenosis of carotid artery without mention of cerebral infarction Coronary 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- Primary NSTEMI (non-ST elevated myocardial infarction) (HCC) Acute myocardial infarction, subendocardial infarction, episode of care unspecified Hospital discharge follow-up Other follow-up examination [facility] Bilateral carotid artery stenosis Occlusion and stenosis of carotid artery without mention of cerebral infarction Type 1 diabetes mellitus with diabetic neuropathy (HCC)- Primary Pure hypercholesterolemia Essential hypertension Unspecified essential hypertension [facility] encounter [facility]* Diagnosis Onset Date Resolution Status Admit Date Acute hypoxic respiratory failure ac gui April 03, 2025 4:16am [facility] Work Phone: Evaluation note* Diagnosis Bilateral carotid artery stenosis Occlusion and stenosis of carotid artery without mention of cerebral infarction Type 1 diabetes mellitus with diabetic neuropathy (HCC) [facility]* Diagnosis Stage 3b chronic kidney disease [...] with diabetic neuropathy documented in this encounter [facility] Work Phone: History and physical note Author Dyana Hwang [facility] Note Date/Time April 03, 2025 4:42a m [facility] Medical Records Department [address] [place] [address] H&P Exam - Hospitalist 04/03/25 0402 MR#: [id number] Acct: [id number] Name: ENOC ARMANDO Rep #:[id number] : 1945 79 From: Dyana Hwang MD PCP: Dr. Ryley Jeter MD Status:ADM IN [facility] HPI - General General Date of Admission: 04/03/25 Date of Service: 04/03/25 Chief Complaint: Dyspnea. HPI Narrative The patient is an 79 y/o M w/ PMHx: CKD stage III unclear subtype per GFR trending, Chronic macrocytic anemia, HTN, HLD, Diabetes mellitus type II, BPH with obstructive pathology, Tobacco use who presents to the [facility] ED on 04/03/2025 with history of worsening [...] x 1 and sublingual nitroglycerin x 1. [facility] Medical History (Updated 04/03/25 @ 04:40 by [...] AdvReac Other Verified 04/03/25 00:16 (Glucocorticoids) (steroids) Nitqiju-SRY-IjF Reductase AdvReac Other Verified 04/03/25 00:16 Inhibitor (Lzdgkhs-Ohg-Wxb Reductase Inhibitor) Family History (Updated 04/03/25 @ [...] 76.4 H, Lymph % (Auto) 13.5 L, [place] % (Auto) 7.0, Eos % (Auto) 1.9, [...] possibly multifocal congestion and/or pneumonia. Reading Location: [place] [address] Chest CTA 04/03/25 02:34 IMPRESSION: Mild bilateral pleural effusions. Passive atelectatic airspace disease/airspace consolidations of the lower lobes. Bilateral chronic perihilar interstitial pulmonary thickening with associated mild multifocal ground-glass densities, possibly superimposed pneumonia. Mild diffuse spondylosis. No CT evidence of pulmonary embolus or aortic dissection. Reading Location: [place] [address] Assessment & Plan Assessment/Plan (1) Acute hypoxic respiratory failure: PLAN: Plan The patient is an 79 y/o M w/ PMHx: CKD stage III unclear subtype per GFR trending, Chronic macrocytic anemia, HTN, HLD, Diabetes mellitus type II, BPH with obstructive pathology, Tobacco use who presents to the [facility] ED on 04/03/2025 with history of worsening [...] any pulmonary embolus or aortic dissection, initial [id number] with repeat delta troponin 76. Will maintain [...] 16 minutes. Charges/Coding Visit Charges Inpatient E&M: 38328 Init Hosp L3 Procedures Hospitalists Procedures: 72414 Advncd Care Plan 30 Min 04/03/25 0442 <Electronically signed by Dyana Hwang MD> Cosigner Signature (if applicable): CC: Dr. Dyana Hwang MD; Dr. Ryley Jeter MD~ Signed [facility] Work Phone: History of Present illness Narrative* At least a 5 yr HX of LBP (previous HX of sciatica). No recent film studies have been done. He willbe a low fall risk. The patient will continue his therapy at [place]. Physical findings include limited trunk ROM with discomfort. Continue with trunk mech trng, STW (needling), and core stability/ROM exercises. * Clinical Presentation: Stable and/or uncomplicated characteristics. * Level of Complexity: low * Problem List: activity limitations, ADLs/IADLs/self care skills, decreased functional level, decreased knowledge of HEP, decreased knowledge of precautions, fall risk, gait/locomotion, pain, range ofmotion/joint mobility and strength. [facility] Work Phone: History of Present illness NarrativePatient identified by name and date of . Patient demonstrated good understanding of exercises and stretching with cues to complete after instruction. He presented with palpable tension in gluts and QL and paraspinals that responded well to STW. [place] Work Phone: History of Present illness Narrative* [...] with relief noted d/t tightness in LB. [facility] [place] Work Phone: History of Present illness Narrative* Tightness along the ITB and QL continues. * Palpable spams in both regions with with STW. * Fair trunk flexibility with SKTC. [place] Work Phone: History of Present illness NarrativePatient identified by name and date of . Patient was able to progress with several exercises this date with addition of teri disc and focus on maintain upright posture. He presented with increased muscle tension in IT band and QL this date.[facility] Work Phone: History of Present illness NarrativePatient identified by name and date of . Added IT band stretch this date and instructed for HEP due to palpable tension. Reviewed importance of HEP even if he feels sore to increased with ROM and decrease with muscle tension, he verbalized good understanding. Patient continues to present with palpable muscle tension/restrictions in his piriforms.[facility] [place] Work Phone: History of Present illness NarrativePatient identified by name and date of . Added IT band stretch this date and instructed for HEP due to palpable tension. Reviewed importance of HEP even if he feels sore to increased with ROM and decrease with muscle tension, he verbalized good understanding. Patient continues to present with palpable muscle tension/restrictions in his piriforms.[facility] Work Phone: History of Present illness [...] and possible inclusion of trigger point dry needling.[facility] Work Phone: History of Present illness [...] not covering a TENS unit for the patient.[facility] Work Phone: reason for referral (narrative)* Consultation (Routine) - Authorized Specialty Diagnoses / Procedures Referred By Contac t Referred To Contact Nephrology Diagnoses Stage 3b chronic kidney disease (CMS/HCC) Procedures Follow Up In Nephrology Ayanna Albert DO [address] [place] [address] Referral ID Status Reason Start Date Expiration Date V isits Requested Visits Authorized [id number] Authorized 08/25/2023 08/24/2024 1 1 [facility] Work Phone: Reason for referral (narrative)* Consultation (Routine) - Authorized Specialty Diagnoses / Procedures Referred By Contzac t Referred To Contact Nephrology Diagnoses Stage 3b chronic kidney disease (Multi) Procedures Follow Up In Nephrology Maricruz Albert, CAPPING MACHINE OPERATOR-ROLLED GOLD PLATER, DNP [address] [place] [address] Referral ID Status Reason Start Date Expiration Date V isits Requested Visits Authorized [id number] Authorized 02/24/2024 02/23/2025 1 1 [facility] Work Phone: Reason for referral (narrative)No reason for referral information availableWFisher-[facility] Work Phone: Reason for visit Narrative* Initial Evaluation . lumbar DDD. * Referred by: Yuki [facility] Work Phone: Reason for visit Narrative* Auth/Cert Specialty Diagnoses / Procedures Referred By Jimy stacy Referred To Contact Diagnoses NSTEMI (non-ST elevated myocardial infarction) (HCC) NSTEMI Referral ID Status Reason Start Date Expiration Date Visits Re quested Visits Authorized [id number] [facility] Auth/Cert (Routine) Specialty Diagnoses / Procedures Referred By Jimy stacy Referred To Contact Diagnoses Cardiovascular stress test abnormal Fatigue, unspecified type SOB (shortness of breath) Cardiovascular stress test abnormal [R94.39] Fatigue, unspecified type [R53.83] SOB (shortness of breath) [R06.02] Procedures Left Heart Cath Referral ID Status Reason Start Date Expiration Date Visits Re quested Visits Authorized [id number] 1 1 [facility] Instructions * Patient Instructions - Alexandra [...] Documents on File Type Date Recorded Patient Director Vaccine Expl anation Advance Directives and Living Will Documents on File Type Date Recorded Patient Director Vaccine Expl anation Advance Directives and Livin g Will 10/18/2020 1:33 PM Documents on File Type Date Recorded Patient Director Vaccine Expl anation Advance Directives and Livin g Will 10/18/2020 1:33 PM Documents on File Type Date Recorded Patient Director Vaccine Expl anation Advance Directives and Livin g Will 02/21/2021 3:38 PM Documents on File Type Date Recorded Patient Director Vaccine Expl anation Advance Directives and Livin g Will 02/21/2021 3:38 PM Latest Code Status on File Code Status Date Activated Date Inactivated Comments Full Code 10/11/2023 5:02 AM Question Answer Comments Plan of Care: Code Status Discussion Completed Decision Maker: Patient Advance Directive Response Recorded Date/ Time Living Will Yes August 05 7:59am Power of Assembler Gold Frame Yes August 05 7:59am Latest Code Status [...] Documents on File Type Date Recorded Patient Director Vaccine Expl anation Advance Directives and Livin g [...] Documents on File Type Date Recorded Patient Director Vaccine Expl anation Advance Directives and Livin g [...] Do you have a Healthcare Power of Assembler Gold Frame? No April 03, 2025 5:17am Advance Directive Response Recorded Date/ Time Do you have a Healthcare Power of Assembler Gold Frame? No April 03, 2025 5:17am Do you have a Healthcare Power of Assembler Gold Frame? Yes April 19, 2025 12:03am Advance Directive Response Recorded Date/ Time Do you have a Healthcare Power of Assembler Gold Frame? No April 03, 2025 5:17am Do you have a Healthcare Power of Assembler Gold Frame? Yes April 19, 2025 4:03am Name of Medical Power of Assembler Gold Frame Alice - April 19, 2025 4:03am Advance Directive Response Recorded Date/ Time Do you have a Healthcare Power of Assembler Gold Frame? No April 03, 2025 5:17am Do you have a Healthcare Power of Assembler Gold Frame? Yes April 19, 2025 4:03am Name of Medical Power of Assembler Gold Frame Alice - April 19, 2025 4:03am Do you have a Healthcare Power of Assembler Gold Frame? Yes May 05, 2025 7:44pm Name of Medical Power of Assembler Gold Frame TOÑITO, May 05, 2025 7:44pm Advance Directive Response Recorded Date/ Time Do you have a Healthcare Power of Assembler Gold Frame? No April 03, 2025 5:17am Do you have a Healthcare Power of Assembler Gold Frame? Yes April 19, 2025 4:03am Name of Medical Power of Assembler Gold Frame Alice - April 19, 2025 4:03am Do you have a Healthcare Power of Assembler Gold Frame? Yes May 05, 2025 10:55pm Name of Medical Power of Assembler Gold Frame TOÑITO, May 05, 2025 10:55pm History of Present Illness * Keeley Patton, ROLLED GOLD PLATER - 11/11/2018 8:11 AM EST Formatting of this note may be different from the original. Patient ID: Enoc Armando is a 72 y.o. male Subjective: HPI: Enoc Armando presents for follow-up of Type 1 diabetes The initial diagnosis of diabetes was [id number] years ago in 1994. Disease course has [...] being taken. Patient does not see a ballistics tester. Eye exam is current. Patient with a [...] blood sugar though. PLAN: CPM. 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 Exam within last 12 months: yes Date: 08/2018 . Had bilat cataract extraction Dr. Lopez. Sees Dr. Browne in [place] every year routinely. Nephropathy: Negative Creat: 1.2, [...] Call if BG consistently <70 or >250. [phone] Continue to check blood sugar 4 times [...] being taken. He does not see a ballistics tester.Eye exam is current (Jun 16). The following [...] 9.1% on 05/07/16. Blood sugars reviewed PLAN: Eonc Armando is on: Humalog 9 units at [...] between apt for further adjustments Retinopathy: Negative PAPER CUTTER. Exam within last 12 months: yes Date: [...] Last CBC-WBC8.2/ Hgb- 14.6/ Hct- 44.1/ Plt [id number] Problem List Items Addressed This Visit Endocrine [...] diabetes The initial diagnosis of diabetes was [id number] years ago in 1994. Disease course has [...] being taken. Patient does not see a ballistics tester. Eye exam is current. Currently taking: No [...] the morning. PLAN: See below Retinopathy: Negative PAPER CUTTER. Exam within last 12 months: yes Date: 08/2018- patient due next month for updated exam Had bilat cataract extraction Dr. Lopez. Sees Dr. Browne in [place] every year routinely. Nephropathy: Negative Creat: 1.0, [...] to bedtime appear to be typically less numb014 and usually less than 180. He was [...] Call if BG consistently <70 or >250. [phone] Continue to check blood sugar 4 times [...] diabetes The initial diagnosis of diabetes was uuje65-16 years ago in 1994. Disease course has [...] being taken. Patient does not see a ballistics tester. Eye exam is current. Currently taking: No [...] DAY FOR INSULIN INJECTION pen needle, diabetic (GliaCureFine Jolynn Pen Needle) 32 gauge x 5/32 [...] at HS. PLAN: See below Retinopathy: Negative PAPER CUTTER. Exam within last 12 months: yes Date: 08/2018- patient due next month for updated exam Had bilat cataract extraction Dr. Lopez. Sees Dr. Browne in [place] every year routinely. Nephropathy: Negative Creat: 1.08; [...] Call if BG consistently <70 or >250. [phone] Continue to check blood sugar 4 times [...] being taken. Patient does not see a ballistics tester. Eye exam is current. Currently taking: No [...] Ultra-Fine Jolynn Pen Needle) 32 gauge x /32 Ndle, Use as directed 4x daily DX [...] <150 atHS. PLAN: See below Retinopathy: Negative PAPER CUTTER. Exam within last 12 months: yes Date: 09/2019- patient due September 2020for updated exam Had bilat cataract extraction Dr. Lopez. Sees Dr. Browne in [place] every yearroutinely. Nephropathy: Negative Creat: 1.01; eGFR: [...] Call if BG consistently <70 or >250. [phone] Continue to check blood sugar 4 times [...] being taken. Patient does not see a ballistics tester. Eye exam is current. Currently taking: No oral hypoglycemic medications Humalog insulin: 10 units at breakfast; 10 units at lunch; 14-15 units at supper Lantus insulin: 18 units at bedtime Outpatient Medications Marked as Taking for the 10/18/20 encounter (Office Visit) with Paty Ortega ROLLED GOLD PLATER: amLODIPine (NORVASC) 10 MG tablet, Take 10 [...] <150 atHS. PLAN: See below Retinopathy: Negative PAPER CUTTER. Exam within last 12 months: yes Date: 10/16/20. Had bilat cataract extraction Dr. Lopez. Sees Dr. Browne in [place] every year routinely. Nephropathy: Negative Creat: 1.01; [...] Call if BG consistently <70 or >250. [phone] Continue to check blood sugar 4 times [...] diabetes The initial diagnosis of diabetes was [id number] years ago in 1994. Disease course has [...] being taken. Patient does not see a ballistics tester. Eye exam is current. Currently taking: No [...] same dose of 18 unitsnightly. 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 Exam within last 12 months: yes Date: 08/2018 . Had bilat cataract extraction Dr. Lopez. Sees Dr. Browne in [place] every year routinely. Nephropathy: Negative Creat: 1.0, [...] Call if BG consistently <70 or >250. [phone] Continue to check blood sugar 4 times [...] Ultrasound doppler carotid Mary Vargas MD [address] [place] [address] Status Reason Specialty Diagnoses / Procedures Referre d By Contact Referred To Contact Closed Cardiology Diagnoses Bilateral carotid artery stenosis Procedures Ultrasound doppler carotid Mary Varags MD [address] [place] [address] [facility] [address] [facility] [place] [address] Specialty Diagnoses / Procedures Referred By Contac t Referred To Contact Urology Diagnoses Elevated PSA Paty Ortega, ROLLED GOLD PLATER [address] [place] [address] Alvaro Gutierrez MD [address] [place] [phone] Referral ID Status Reason Start Date Expiration Date Visits Requested Visits Authorized [id number] Pending Review Specialty Services Required/Pat ient's Best Interest 06/19/2022 06/19/2023 1 1 Specialty Diagnoses / Procedures Referred By Contac t Referred To Contact Cardiology Diagnoses Bilateral carotid artery stenosis Procedures Ultrasound doppler carotid Paty Ortega CNP [address] [place] [address] Referral ID Status Reason Start Date Expiration Date V isits Requested Visits Authorized [id number] Authorized 10/19/2022 10/19/2023 1 1 Specialty Diagnoses / Procedures Referred By Contac t Referred To Contact Radiology Diagnoses Congestive heart failure, unspecified HF chronicity, unspecified heart failure type (HCC) 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 Procedures NM Myocardial Perfusion Multiple SPECT Day, Woo Larsen MD [address] [place] [address] Referral ID Status Reason Start Date Expiration Date V isits Requested Visits Authorized [id number] New Request 10/21/2023 10/20/2024 4 4 Chief [...] RESPIRATO RY FAILURE April 22, 2025 10:21am AE CHF, AE COPD, PNA, LEUKOCYTOSIS, LACT IC May 05, 2025 10:01pm Reason for Visit Admit Date Acute hypoxic [...] MADONNA (acute kidney injury) April 19 3:06am CHF exacerbation April 19, 2025 3:06 am COPD exacerbation April 19, 2025 3:06 am Elevated d-dimer April 19, 2025 3:06 am Generalized weakness April 19, 2025 3:0 6am Hyperglycemia due to type 2 diabetes clayton litus April 19, 2025 3:06am Hyperkalemia April 19, 2025 3:06 am Lactic acidosis April 19, 2025 3:06 am Leukocytosis April 19, 2025 3:06 am ASCVD (arteriosclerotic cardiovascular d isease) April 19, 2025 3:06am CKD (chronic kidney disease) stage 3, GF R 30-59 ml/min April 19, 2025 3:06am CKD (chronic kidney disease), stage IV J une 2024 3:06am HFrEF (heart failure with reduced ejecti on fraction) April 19, 2025 3:06am Acute on chronic hypoxic respiratory nat lure May 05, 2025 10:01pm CHF exacerbation May 05, 2025 10:01 pm Chronic kidney disease May 05, 2025 10 :01pm COPD (chronic obstructive pulmonary dise ase) May 05, 2025 10:01pm Hypertension May 05, 2025 10:01 pm Chief Complaint Admit Date RESP FAILURE, COPD [...] RESPIRATO RY FAILURE April 22, 2025 10:21am AE CHF, AE COPD, PNA, LEUKOCYTOSIS, LACT IC May 05, 2025 10:01pm AE CHF, AE COPD, PNA, LEUKOCYTOSIS, LACT IC May 06, 2025 7:41am AE CHF, AE COPD, PNA, LEUKOCYTOSIS, LACT IC May 07, 2025 9:07am AE CHF, AE COPD, PNA, LEUKOCYTOSIS, LACT IC May 08, 2025 8:12am AE CHF, AE COPD, PNA, LEUKOCYTOSIS, LACT IC May 09, 2025 7:53am Reason for Visit Admit Date MADONNA (acute kidney injury) April 03, 2025 4:16am Acute hypoxic respiratory failure April 032024 4:16am Anemia April 03, 2025 4:16a m Bradycardia April 03, 2025 4:16a m CKD (chronic kidney disease), stage III April 03, 2025 4:16am HTN (hypertension) April 03, 2025 4:16a m LV dysfunction April 03, 2025 4:16a m Non-STEMI (non-ST elevated myocardial in farction) April 03, 2025 4:16am Acute hypoxic respiratory failure April 012024 3:06am MADONNA (acute kidney injury) April 19 3:06am CHF exacerbation April 19, 2025 3:06 am COPD exacerbation April 19, 2025 3:06 am Elevated d-dimer April 19, 2025 3:06 am Generalized weakness April 19, 2025 3:0 6am Hyperglycemia due to type 2 diabetes clayton litus April 19, 2025 3:06am Hyperkalemia April 19, 2025 3:06 am Lactic acidosis April 19, 2025 3:06 am Leukocytosis April 19, 2025 3:06 am ASCVD (arteriosclerotic cardiovascular d isease) April 19, 2025 3:06am CKD (chronic kidney disease) stage 3, GF R 30-59 ml/min April 19, 2025 3:06am CKD (chronic kidney disease), stage IV J une 2024 3:06am HFrEF (heart failure with reduced ejecti on fraction) April 19, 2025 3:06am MADONNA (acute kidney injury) May 05, 2025 10:01pm Diabetes mellitus, type 2 May 05, 2025 10:01pm Elevated troponin May 05, 2025 10:01 pm Leukocytosis May 05, 2025 10:01 pm Mild pulmonary hypertension May 05 10:01pm Mitral valve insufficiency May 05 10:01pm Pneumonia May 05, 2025 10:01 pm Acute on chronic HFrEF (hear t failure with reduced ejection fraction) May 05, 2025 10:01pm Acute on chronic hypoxic respiratory nat lure May 05, 2025 10:01pm CHF exacerbation May 05, 2025 10:01 pm Chronic kidney disease May 05, 2025 10 :01pm COPD (chronic obstructive pulmonary dise ase) May 05, 2025 10:01pm COPD exacerbation May 05, 2025 10:01 pm Hypertension May 05, 2025 10:01 pm CKD (chronic kidney disease), stage IV J ganesh 2024 10:01pm Additional Source Comments (unrecognized sect ion and content) No Status Records FoundNo Status Records FoundNo Status Records FoundNo Status Records FoundNo Status Records FoundNo Status Records FoundNo Status Records FoundNo Status Records FoundNo Status Records FoundNo Status Records FoundNo Status Records FoundNo Status Records Found INFORMATION SOURCE (unrecogn ized section and content) DATE CREATED AUTHOR 04/21/2018 [facility] DATE CREATED AUTHOR AUTHOR'S ORGANIZ ATION 07/05/2019 [facility] DATE CREATED AUTHOR AUTHOR'S ORGANIZ ATION 08/04/2023 [employer] DATE CREATED AUTHOR AUTHOR'S ORGANIZ ATION 08/06/2023 [facility] DATE CREATED AUTHOR AUTHOR'S ORGANIZ ATION 10/13/2023 [facility] DATE CREATED AUTHOR AUTHOR'S ORGANIZ ATION 11/12/2024 [facility] DATE CREATED AUTHOR AUTHOR'S ORGANIZ ATION 03/13/2025 [facility] DATE CREATED AUTHOR AUTHOR'S ORGANIZ ATION 04/14/2025 [facility] DATE CREATED AUTHOR AUTHOR'S ORGANIZ ATION 04/28/2025 [facility] DATE CREATED AUTHOR AUTHOR'S ORGANIZ ATION 04/29/2025 [facility] DATE CREATED AUTHOR AUTHOR'S ORGANIZ ATION 05/03/2025 [facility] DATE CREATED AUTHOR AUTHOR'S ORGANIZ ATION 05/10/2025 [facility] Reason for Visit (unrecogniz ed section and content) Reason Comments Diabetes Mellitus Reason Onset Date Comments Medication Refill 02/18/2021 Reason Comments Diabetes Mellitus Status Reason Specialty Diagnoses / Procedures Referre d By Contact Referred To Contact Closed Cardiology Diagnoses Bilateral carotid artery stenosis Procedures Ultrasound doppler carotid Mary Vargas MD [address] [place] [address] [facility] [address] [facility] [place] [address] Reason Onset Date Comments Medication Refill 10/08/2021 [...] No coded services entered Praful Maloney MD [address] [place] [address] [address] Referral ID Status Reason Start Date Expiration Date Visits Re quested Visits Authorized [id number] 1 1 Reason Comments Initial Visit (Intake) SOBOE Specialty Diagnoses / Procedures Referred By Contac t Referred To Contact Cardiology Diagnoses Congestive heart failure, unspecified HF chronicity, unspecified heart failure type ([facility]) Mary Vargas MD [address] [place] [address] [place] [address] Referral ID Status Reason Start Date Expiration Date Visits Re quested Visits Authorized [id number] Closed 10/19/2023 10/18/2024 1 1 Reason Comments Respiratory Distress Pt comes in for dif ficulty breathing. Pt states that he was dx with a viral lung infection 1 wk ago and placed on a steroid. Pt had covid 1 month ago and was admitted for 1 wk at this facility. 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 EMS reports an O2 level in [...] carotid artery stenosis Sandi Phan PA-C [address] [place] [address] Phone: tel: fax: [address] [address] Phone: tel: Referral ID Status Reason Start Date Expiration Date V isits Requested Visits Authorized [id number] Pending Review 11/07/2024 11/07/2025 1 1 Reason [...] labs Specialty Diagnoses / Procedures Referred By Contac t Referred To Contact Nephrology Diagnoses Stage 3b chronic kidney disease (Multi) Procedures Follow Up In Nephrology Ayanna Albert DO [address] [place] [address] Phone: tel: fax: Referral ID Status Reason Start Date Expiration Date V isits Requested Visits Authorized [id number] Authorized 08/29/2024 08/29/2025 1 1 Reason Comments Shortness of Breath Abnormal Lab BNP Reason Comments Diabetes Mellitus Diabetic Eye Exam du e on 10/14/2021 Reason Onset Date Comments Results 03/27/2025 Lab Reason Onset Date Comments Medication Refill 04/16/2025 Reason Comments Follow-up [facility] Teams (unrecognized sec tion and content) Furnace Cooler Relationship Specialty Start Date End Date Nancy Mirza MD PCP - General Family Medicine 01/09/16 Furnace Cooler Relationship Specialty Start Date End Date Nancy Mirza MD PCP - General Family Medicine 01/09/16 Furnace Cooler Relationship Specialty Start Date End Date Nancy Mirza MD PCP - General Family Medicine 01/09/16 Furnace Cooler Relationship Specialty Start Date End Date Nancy Mirza MD PCP - General Family Medicine 01/09/16 Furnace Cooler Relationship Specialty Start Date End Date Nancy Mirza MD PCP - General Family Medicine 01/09/16 Furnace Cooler Relationship Specialty Start Date End Date Nancy Mirza MD PCP - General Family Medicine 01/09/16 Furnace Cooler Relationship Specialty Start Date End Date Nancy Mirza MD PCP - General Family Medicine 01/09/16 Furnace Cooler Relationship Specialty Start Date End Date Nancy Mirza MD [address] [place] [address] PCP - General Family Medicine 01/09/16 Furnace Cooler Relationship Specialty Start Date End Date Nancy Mirza MD [address] [place] [address] PCP - General Family Medicine 01/09/16 Furnace Cooler Relationship Specialty Start Date End Date Nancy Mirza MD [address] [facility] [place] [address] PCP - General 11/01/18 Furnace Cooler Relationship Specialty Start Date End Date Ryley Jeter MD [address] [place] [address] PCP - General Family Medicine 10/08/23 Furnace Cooler Relationship Specialty Start Date End Date Nancy Mirza MD [address] [facility] [place] [address] PCP - General 11/01/18 Furnace Cooler Relationship Specialty Start Date End Date Ryley Jeter MD [address] [place] [address] PCP - General Family Medicine 10/08/23 Furnace Cooler Relationship Specialty Start Date End Date Ryley Jeter MD [address] [place] [address] PCP - General Family Medicine 10/08/23 Team Status: Active Member Role Status Lizzette Jeter MD Primary Care Provider Active Team Status: Inactive Member Role Status Lizzette Jeter MD Primary Care Provider Active Jana Ferguson BOWLING BALL ENGRAVER, BOWLING BALL ENGRAVER-C Attending Provider Active Team Status: Inactive Member Role Status Lizzette Jeter MD Primary Care Provide r, Attending Provider, Referring Provider Active Furnace Cooler Relationship Specialty Start Date End Date Ayanna Albert DO [address] [place] [address] PCP - [employer]age PCP 11/01/23 Generic Provider, No Assigned [facility] [address] [place] [address] PCP - General Internal Medicine 11/26/23 Furnace Cooler Relationship Specialty Start Date End Date Ayanna Albert DO [address] [place] [phone] PCP - [employer] Medicare Advantage PCP 11/01/23 Gerri Amos MD [address] [place] [address] PCP - General Internal Medicine 11/26/23 Furnace Cooler Relationship Specialty Start Date End Date Ryley Jeter MD [address] [place] [address] PCP - General Family Medicine 10/08/23 Furnace Cooler Relationship Specialty Start Date End Date Nancy Mirza MD [address] [place] [id number] PCP - General 11/01/18 11/25/23 Furnace Cooler Relationship Specialty Start Date End Date Ryley Jeter MD [address] [place], [place] [id number] PCP - General Family Medicine 10/08/23 Furnace Cooler Relationship Specialty Start Date End Date Ryley Jeter MD [address] [place] [id number] PCP - General Family Medicine 10/08/23 Furnace Cooler Relationship Specialty Start Date End Date Ryley Jeter MD [address] [place], [place] [phone] PCP - General Family Medicine 10/08/23 Furnace Cooler Relationship Specialty Start Date End Date Ryley Jeter MD [address] [place] [address] PCP - General Family Medicine 10/08/23 Furnace Cooler Relationship Specialty Start Date End Date Ayanna Albert DO [address] [place] [address] PCP - [employer] Medicare Advantage PCP 11/01/23 Generic Provider, No Assigned [facility] [address] [place] [address] PCP - General Internal Medicine 11/26/23 Furnace Cooler Relationship Specialty Start Date End Date Ryley Jeter MD [address] [place], [place] [address] PCP - General Family Medicine 10/08/23 Furnace Cooler Relationship Specialty Start Date End Date Ayanna Albert DO [address] [place] [phone] PCP - [employer] Medicare Advantage PCP 11/01/23 Generic Provider, No Assigned [facility] [address] [place] [address] PCP - General Internal Medicine 11/26/23 Furnace Cooler Relationship Specialty Start Date End Date Ryley Jeter MD [address] [place] [address] PCP - General Family Medicine 10/08/23 Furnace Cooler Relationship Specialty Start Date End Date Ryley Jeter MD [address] [place], [place] [address] PCP - General Family Medicine 10/08/23 Furnace Cooler Relationship Specialty Start Date End Date Ryley Jeter MD [address] [place] [address] PCP - General Family Medicine 10/08/23 Furnace Cooler Relationship Specialty Start Date End Date Ryley Jeter MD [address] [place], [place] [phone] PCP - General Family Medicine 10/08/23 Furnace Cooler Relationship Specialty Start Date End Date Ryley Jeter MD [address] [place] [address] PCP - General Family Medicine 10/08/23 Furnace Cooler Relationship Specialty Start Date End Date Ryley Jeter MD [address] [place], [place] [id number] PCP - General Family Medicine 10/08/23 Furnace Cooler Relationship Specialty Start Date End Date Ryley Jeter MD [address] [place] [address] PCP - General Family Medicine 10/08/23 Furnace Cooler Relationship Specialty Start Date End Date Ryley Jeter MD [address] [place], [place] [phone] PCP - General Family Medicine 10/08/23 Kristy Parker MD [address] [place] [address] Consulting Physician Vascular Surgery 11/09/24 Furnace Cooler Relationship Specialty Start Date End Date Ryley Jeter MD [address] [place], [place] [address] PCP - General Family Medicine 10/08/23 Kristy Parker MD [address] [place] [address] Consulting Physician Vascular Surgery 11/09/24 Furnace Cooler Relationship Specialty Start Date End Date Ryley Jeter MD [address] [place], [place] [address] PCP - General Family Medicine 10/08/23 Kristy Parker MD [address] [place] [address] Consulting Physician Vascular Surgery 11/09/24 Furnace Cooler Relationship Specialty Start Date End Date Ryley Jeter MD [address] [place], [place] [address] PCP - General Family Medicine 10/08/23 Kristy Parker MD [address] [place] [address] Consulting Physician Vascular Surgery 11/09/24 Furnace Cooler Relationship Specialty Start Date End Date Ryley Jeter MD [address] [place], [place] [address] PCP - General Family Medicine 10/08/23 Kristy Parker MD [address] [place] [address] Consulting Physician Vascular Surgery 11/09/24 Team Status: Inactive Member Role Status Dates Ryley Jeter MD Primary Care Provider Active St art: February 06, 2025 End: February 06, 2025 Dr. Kerwin Tamayo MD Attending Provider Activ e Start: February 06, 2025 End: February 06, 2025 Furnace Cooler Relationship Specialty Start Date End Date Ryley Jeter MD [address] [place], [place] [address] PCP - General Family Medicine 10/08/23 Kristy Parker MD [address] [facility] [place] [address] Consulting Physician Vascular Surgery 11/09/24 Furnace Cooler Relationship Specialty Start Date End Date Ryley Jeter MD [address] [place], [place] [address] PCP - General Family Medicine 10/08/23 Kristy Parker MD [address] [place] [address] Consulting Physician Vascular Surgery 11/09/24 Furnace Cooler Relationship Specialty Start Date End Date Ryley Jeter MD [address] [place], [place] [address] PCP - General Family Medicine 10/08/23 Kristy Parker MD [address] [place] [address] Consulting Physician Vascular Surgery 11/09/24 Furnace Cooler Relationship Specialty Start Date End Date Generic Provider, No Assigned [facility] PCP - General Internal Medicine 11/26/23 Furnace Cooler Relationship Specialty Start Date End Date Ryley Jeter MD [address] [place], [place] [address] PCP - General Family Medicine 10/08/23 Kristy Parker MD [address] [place] [address] Consulting Physician Vascular Surgery 11/09/24 Furnace Cooler Relationship Specialty Start Date End Date Ryley Jeter MD [address] [place], [place] [phone] PCP - General Family Medicine 10/08/23 Kristy Parker MD [address] [place] [address] Consulting Physician Vascular Surgery 11/09/24 Team Status: [...] Status: Active Member Role Status Dates Ryley Jteer MD Primary Care Provider Active St art: [...] Active Star t: April 03, 2025 Dr. Ncio Storey MD Other Provider [...] art: April 05, 2025 Dr. John Brandon , Emergency Provider Active Start: April 05, 2025 [...] Active St art: April 05, 2025 Dr. yDana Hwang MD Other Provider Active St art: [...] art: April 05, 2025 Dr. John Brandon , Emergency Provider Active Start: April 05, 2025 [...] S tart: April 06, 2025 Dr. Landry aFgan DO Other Provider Active Start : April [...] Active Star t: April 06, 2025 Dr. hCarlie Garcia MD Other Provider Active Sta rt: [...] Status: Active Member Role Status Dates Ryley Jteer MD Primary Care Provider Active St art: [...] Provider Active Start: April 05, 2025 Dr. Chole Gallardo MD Other Provider Active St art: [...] art: April 20, 2025 Dr. Arnulfo Jose , Emergency Provider Active Start: April 20, 2025 Dr. Nancy Rizzo , DO Admit Provider Active Start: April 20, [...] art: April 20, 2025 Dr. Ger Roberts , Attending Provider Active Start: April 20, 2025 [...] Emergency Provider Active Start: April 21, 2025 DrElizabet Rizzo DO Admit Provider Active Start: April [...] art: April 22, 2025 Dr. Arnulfo Jose , Emergency Provider Active Start: April 22, 2025 Dr. Nancy Rizzo , Admit Provider Active Start: April 22, 2025 Dr. Nancy Rizzo , DO Other Provider Active Start: April 22, 2025 Dr. Denisha Thompson MD Other Provider Active Start: April 22, 2025 Dr. Malika Fonseca , Other Provider Active Star t: April 22, 2025 Dr. Jose Moore MD Other Provider Active Start: April 22, 2025 Dr. Breezy Campbell MD Attending Provider Active Start: April 22, 2025 Dr. Breezy Campbell MD Other Provider Active St art: April 22, 2025 Furnace Cooler Relationship Specialty Start Date End Date Generic Provider, No Assigned [facility] PCP - General Internal Medicine 11/26/23 Team Status: Active Member Role/Relationship Status Dates Ryley Jeter MD Primary Care Provider Active Team Status: Inactive Member Role/Relationship Status Dates Ryley Jeter MD Primary Care Provider Active St art: February 06, 2025 End: February 06, 2025 Dr. Kerwin Tamayo MD Attending Provider Activ e Start: February 06, 2025 End: February 06, 2025 Team Status: Inactive Member Role/Relationship Status Dates Ryley Jeter MD Primary Care Provider Active St art: April 03, 2025 End: April 10, 2025 Dr. John Brandon , Emergency Provider Active Start: April 03, 2025 [...] April 10, 2025 Team Status: Active Member Role/Relationship Status Dates Ryley Jeter MD Primary Care [...] Active Start : April 03, 2025 Dr. Borck Jeffries MD Other Provider Active Start: April [...] April 03, 2025 Team Status: Active Member Role/Relationship Status Dates Ryley Jeter MD Primary Care Provider Active St art: April 03, 2025 Dr. Koffi Gibbs MD Attending Provider Active Start: April 03, 2025 Team Status: Active Member Role/Relationship Status Dates Ryley Jeter MD Primary Care [...] April 04, 2025 Team Status: Active Member Role/Relationship Status Dates Ryley Jeter MD Primary Care [...] April 04, 2025 Team Status: Active Member Role/Relationship Status Dates Ryley Jeter MD Primary Care [...] April 05, 2025 Team Status: Active Member Role/Relationship Status Dates Ryley Jeter MD Primary Care [...] April 05, 2025 Team Status: Active Member Role/Relationship Status Dates Ryley Jeter MD Primary Care [...] April 05, 2025 Team Status: Active Member Role/Relationship Status Dates Ryley Jeter MD Primary Care [...] April 05, 2025 Team Status: Active Member Role/Relationship Status Dates Ryley Jeter MD Primary Care [...] April 06, 2025 Team Status: Active Member Role/Relationship Status Dates Ryley Jeter MD Primary Care [...] April 06, 2025 Team Status: Active Member Role/Relationship Status Dates Ryley Jeter MD Primary Care [...] April 06, 2025 Team Status: Active Member Role/Relationship Status Dates Ryley Jeter MD Primary Care [...] April 07, 2025 Team Status: Active Member Role/Relationship Status Dates Ryley Jeter MD Primary Care Provider Active St art: April 08, 2025 Dr. John Brandon , Emergency Provider Active Start: April 08, 2025 [...] April 08, 2025 Team Status: Active Member Role/Relationship Status Dates Ryley Jeter MD Primary Care [...] April 09, 2025 Team Status: Active Member Role/Relationship Status Dates Ryley Jeter MD Primary Care [...] Active Start: April 10, 2025 Team Status: Inactive Member Role/Relationship Status Dates Ryley Jeter MD Primary Care [...] April 22, 2025 Team Status: Active Member Role/Relationship Status Dates Ryley Jeter MD Primary Care [...] April 20, 2025 Team Status: Active Member Role/Relationship Status Dates Ryley Jeter MD Primary Care Provider Active St art: April 20, 2025 Dr. Arnulfo Jose , DO Emergency Provider Active Start: April 20, 2025 Dr. Nancy Rizzo , DO Admit Provider Active Start: April 20, 2025 Dr. Nancy Rizzo DO Other Provider Active Start: April 20, 2025 Dr. Denisha Thompson MD Other Provider Active Start: April 20, 2025 Dr. Malika Fonseca , Other Provider Active Star t: April 20, 2025 Dr. Jose Moore MD Other Provider Active Start: April 20, 2025 Dr. Breezy Campbell MD Attending Provider Active Start: April 20, 2025 Dr. Breezy Campbell MD Other Provider Active St art: April 20, 2025 Team Status: Active Member Role/Relationship Status Dates Ryley Jeter MD Primary Care [...] April 21, 2025 Team Status: Active Member Role/Relationship Status Dates Ryley Jeter MD Primary Care [...] April 21, 2025 Team Status: Active Member Role/Relationship Status Dates Ryley Jeter MD Primary Care Provider Active St art: April 22, 2025 Dr. Arnulfo Jose DO Emergency Provider Active Start: April 22, 2025 Dr. Nancy Rizzo , DO Admit Provider Active Start: April 22, [...] April 22, 2025 Team Status: Active Member Role/Relationship Status Dates Ryley Jeter MD Primary Care [...] April 22, 2025 Team Status: Active Member Role/Relationship Status Dates Ryley Jeter MD Primary Care Provider Active St art: May 05, 2025 Dr. Curtis Amor DO Emergency Provider Active Start: May 05, 2025 Dr. Nancy Rizzo DO Admit Provider Active Start: May 05, 2025 Dr. Nancy Rizzo DO Attending Provider Active Start: May 05, 2025 Team Status: Inactive Member Role/Relationship Status Lizzette Jeter MD Primary Care Provider Active St art: May 05, 2025 End: May 09, 2025 Dr. Curtis Amor , DO Emergency Provider Active Start: May 05, 2025 End: May 09, 2025 Dr. Nancy Rizzo , DO Admit Provider Active Start: May 05, 2025 End: May 09, 2025 Dr. Nancy Rizzo , DO Other Provider Active Start: May 05, 2025 End: May 09, 2025 Dr. Malika Fonseca , Attending Provider Active Start: May 05, 2025 End: May 09, 2025 Dr. Carlita Raygoza , DO Other Provider Active Start : May 05, 2025 End: May 09, 2025 Team Status: Active Member Role/Relationship Status Lizzette Jeter MD Primary Care Provider Active St art: May 06, 2025 Dr. Curtis Amor , Emergency Provider Active Start: May 06, 2025 Dr. Nancy Rizzo , DO Admit Provider Active Start: May 06, 2025 Dr. Nancy Rizzo DO Other Provider Active Start: May 06, 2025 Dr. Carlita Raygoza , Attending Provider Active S tart: May 06, 2025 Dr. Carlita Raygoza , DO Other Provider Active Start : May 06, 2025 Team Status: Active Member Role/Relationship Status Lizzette Jeter MD Primary Care Provider Active St art: May 07, 2025 Dr. Curtis Amor DO Emergency Provider Active Start: May 07, 2025 Dr. Nancy Rizzo DO Admit Provider Active Start: May 07, 2025 Dr. Nancy Rizzo , Other Provider Active Start: May 07, 2025 Dr. Malika Fonseca , Attending Provider Active Start: May 07, 2025 Dr. Malika Fonseca , DO Other Provider Active Star t: May 07, 2025 Dr. Carlita Raygoza , Other Provider Active Start : May 07, 2025 Team Status: Active Member Role/Relationship Status Lizzette Jeter MD Primary Care Provider Active St art: May 08, 2025 Dr. Curtis Amor , Emergency Provider Active Start: May 08, 2025 Dr. Nancy Rizzo , DO Admit Provider Active Start: May 08, 2025 Dr. Nancy Rizzo , DO Other Provider Active Start: May 08, 2025 Dr. Malika Fonseca , Attending Provider Active Start: May 08, 2025 Dr. Malika Fonseca , DO Other Provider Active Star t: May 08, 2025 Dr. Carlita Raygoza , DO Other Provider Active Start : May 08, 2025 Team Status: Active Member Role/Relationship Status Dates Ryley Jeter MD Primary Care Provider Active St art: May 09, 2025 Dr. Curtis Amor , Emergency Provider Active Start: May 09, 2025 Dr. Nancy Rizzo , DO Admit Provider Active Start: May 09, 2025 Dr. Nancy Rizzo , Other Provider Active Start: May 09, 2025 Dr. Malika Fonseca , Attending Provider Active Start: May 09, 2025 Dr. Malika Fonseca DO Other Provider Active Star t: May 09, 2025 Dr. Carlita Raygoza , Other Provider Active Start : May 09, 2025 Scheduled Active and Recently Administ ered Medications (unrecognized section and content) Medication Order 10/11/2023 10/12/2023 10/13/2023 albuterol 2.5 mg /3 mL (0.083 %) nebulizer solution 2.5 mg (COMPLETED) 2.5 mg, nebulization, Once, On Wed10/11/23 at 0150, For 1 dose 0203 (Given - Provider: Scarlet Ashford, DIRECTOR OF BLOOD - Comment: albuterol) amLODIPine (Norvasc) tablet 10 mg 10 mg, oral, Daily RT, First dose on Wed10/11/23 at 0700 1001 (Given - Provider: Geni Wall RN) 0621 (Given - Provider: Jody Ball RN) 0954 (Given - Provider: Moody Gorman, FIDEL) aspirin chewable tablet 324 mg(Linked Group 1) 324 mg, oral, Daily, First dose on Wed10/11/23 at 0900, If unable to take orally, may crush and immediately give by feeding tube. 0954 (Given - Provider: Geni Wall RN) 0829 (Given - Provider: Moody Gorman, FIDEL) 0954 (Given - Provider: Moody Gorman RN) [...] 0242 (New Bag - Provider: Heather Leonardo RN)0342 (Stopped - Provider: Heather Leonardo RN) azithromycin (Zithromax) in dextrose 5 % [...] OLIVIA) 0700 (Not Given - Provider: Amber L Pascal, DIRECTOR OF BLOOD - Reason: Medication not available)191 (Given - Provider: Malika Hemphill, DIRECTOR OF BLOOD) 06 (Given - Provider: Delmar Mcgowan, DIRECTOR OF BLOOD)1900 (Due) budesonide (Pulmicort) 0.5 mg/2 mL nebulizer solution 0.5 mg (CANCELED) 0.5 mg, nebulization, 2 times daily RT, First dose on Wed10/11/23 at 0600, Rinse mouth with water after use to reduce aftertaste and incidence of candidiasis. Do not swallow. 0603 (Given - Provider: Nancy Juares, DIRECTOR OF BLOOD) cefTRIAXone (Rocephin) 2 g IV in dextrose [...] 0957 (Given - Provider: Moody Gorman RN) dexAMETHasone (Decadron) tablet 6 mg (CANCELED) 6 mg, oral, Daily, First dose on Wed10/12/23 at 0900 0829 (Given - Provider: Moody Gorman RN) 0955 (Given - Provider: Moody Gorman RN) dexAMETHasone (PF) (Decadron) injection 10 mg (COMPLETED) [...] Patient/family refused) 1010 (Given - Provider: Moody Gorman RN) enalaprilat (Vasotec) injection 1.25 mg (COMPLETED) 1.25 [...] Gorman, FIDEL) 0012 (Given - Provider: Amber Jacobsen, FIDEL)0900 (Not Given - Provider: Moody Gorman RN [...] RN) 2104 (Given - Provider: Amber Jacobsen, FIDEL) insulin glargine (Lantus) injection 20 Units 20 [...] Moody Gorman RN)1846 (Given - Provider: Moody Gorman RN) insulin [...] (g/unit): 5 0952 (Given - Provider: Geni Wall RN)1200 (Not Given - Provider: Geni Wall [...] Juares RRT)1821 (Given - Provider: Scarlet Ashford DIRECTOR OF BLOOD)2145 (Given - Provider: Scarlet Ashford DIRECTOR OF BLOOD) 0652 (Given - Provider: Amber Pascal RRT)1156 [...] 0957 (Given - Provider: Moody Gorman, FIDEL) nicotine (Nicoderm CQ) 21 mg/24 hr patch [...] Wall RN) 0938 (Given - Provider: Moody Gorman, FIDEL) 0955 (Given - Provider: Moody Gorman RN) zinc sulfate (Zincate) capsule 50 mg of elemental zinc 50 mg of elemental zinc, oral, Daily, First dose on Wed10/12/23 at 1130 1300 (Not Given - Provider: Moody Gorman RN - Reason: Patient/family refused) 0955 (Given - Provider: Moody Gorman, FIDEL) Continuous Medication Order 10/11/2023 10/12/2023 10/13/2023 insulin [...] 1354 (New Bag - Provider: Leticia Nagel, RN)1639 (Rate/Dose Verify - Provider: Leticia Nagel, RN)2158 (Rate/Dose Change - Provider: Jody Ball, FIDEL - Comment: Per Dr. Basilio, turn inuslin [...] Gorman, RN) 0012 (Given - Provider: Amber Jacobsen [...] 1 dose 2334 (Given - Provider: Kristi Bowman RN) heparin (porcine) injection 4,000 Units (COMPLETED) 4,000 Units, intravenous, Once, On Wed11/26/23 at 2315, For 1 dose, Initial bolus. 2337 (Given - Provider: Kristi Bowman RN) insulin regular (HumuLIN R) injection 10 Units (COMPLETED) 10 Units, intravenous, Once, On Wed11/26/23 at 2205, For 1 dose 2218 (Given - Provider: Kristi Bowman RN) jngfqxwxwdaa-hsofphbqif-apxhptzt (Zosyn) IV 3.375 g (COMPLETED) 3.375 g, [...] 2124 (Start - Provider: Ozzie Ha, OLIVIA) 123 (Start - Provider: Ozzie Ha RRT) Scheduled [...] 0925 (Given - Provider: Sariah Clark, FIDEL) azithromycin (ZITHROMAX) 500 mg in sodium chloride (NS) 0.9% 250 mL (vialmate) 500 mg, Intravenous, at 250 mL/hr, Every 24 hours, First dose on 11/27/23 at 0430, Indication: CAP 0457 (New Bag - Provider: Sultana Baptiste RN)0557 (Stopped - Provider: Blanco Olivera, FIDEL) 0351 (New Bag - Provider: Nelia Flores, FIDEL)0428 (Rate/Dose Verify - Provider: Nelia Flores, FIDEL)0505 (Stopped - Provider: Nelia Flores RN) 0503 (New Bag - Provider: Blanco Olivera, FIDEL)0515 (Rate/Dose Verify - Provider: Blanco Olivera, RN)0603 (Stopped - Provider: Blanco Olivera, FIDEL) cefTRIAXone (ROCEPHIN) IVPB 2 g (premix) 2,000 mg, Intravenous, at 100 mL/hr, Every 24 hours, First dose on Wed11/27/23 at 0430, Indication: CAP 0412 (New Bag - Provider: Sultana Baptiste, FIDEL)0442 (Stopped - Provider: Blanco Olivera, FIDEL) 0509 (New Bag - Provider: Nelia Flores, RN)0539 (Stopped - Provider: Nelia Flores, RN) 0416 (New Bag - Provider: Blanco [...] 25 mg, Oral, Daily, First dose on 11/27/23 at 0900, DO NOT CRUSH OR CHEW. 0749 (Given - Provider: Jose Rafael Gill RN)0900 (Canceled Entry - Provider: Jose Rafael Gill RN) 0843 (Given - Provider: Karoline Merida RN) 0925 (Given - Provider: Sariah Clark RN) sodium chloride (PF) (NS) flush 5 mL(Linked Group 1) 5 mL, Intravenous, Every 8 hours scheduled, First dose on Wed11/27/23 at 0600, Saline lock 0611 (Given - Provider: Sultana Baptiste RN)1409 (Given - Provider: Jose Rafael Gill RN)2152 (Given - Provider: Nelia Flores, RN) 0551 (Given - Provider: Nelia Flores, RN)1400 (Canceled Entry - Provider: Karoline Merida RN)2017 (Given - Provider: Janice Spear, FIDEL)2200 (Canceled Entry - Provider: Janice Spear, FIDEL) 0600 (Canceled Entry - Provider: Blanco Olivera, FIDEL)1311 (Given - Provider: Sariah Clark RN) tamsulosin (FLOMAX) 24 hr capsule 0.4 mg 0.4 mg, Oral, After evening meal, First dose on 12/01/23 at 1930, For 1 dose, DO NOT [...] Olivera RN)0147 (Rate/Dose Change - Provider: Blanco Olivera, FIDEL)0149 (Stopped - Provider: Blanco Olivera, FIDEL)0341 (New Bag - Provider: Sultana Baptiste RN)0557 (Paused - Provider: Blanco Olivera RN)0604 (Restarted - Provider: Blanco Olivera RN)0616 (Rate/Dose Change - Provider: Sultana Baptiste RN)0617 (Rate/Dose Verify - Provider: Blanco Olivera RN)0619 (Rate/Dose Verify - Provider: Blanco Olivera RN)0622 (Paused - Provider: Blanco Olivera, FIDEL)06 (Restarted - Provider: Blanco Olivera, FIDEL)0624 (Paused - Provider: Blanco Olivera RN)06 (Paused - Provider: Blanco Olivera, FIDEL)06 (Restarted - Provider: Blanco Olivera, FIDEL)1405 (Stopped - Provider: Blanco Olivera RN) PRN [...] 11/27/23 at 0337, Anginal pain, may repeat [id number] [id number], then notify physician. DO NOT CRUSH [...] mL, Intravenous, at 750 mL/hr, Once, On Wed10/28/24 at 0815, For 1 dose 0718 (New Bag - Prov ider: Julia Chan RN)1437 (Stopped - Provider: Karthik Sandoval RN) heparin (porcine) injection 5,000 Units 5,000 Units, Subcutaneous, Every 8 hours scheduled, First dose on Wed10/28/24 at 1400, Notify physician if patient refuses. [...] 12 Units, Subcutaneous, Nightly, First dose on Wed10/28/24 at 2100, Do not hold basal insulin [...] Comment: 8 units [place] [facility] [place] isosorbide mononitrate (IMDUR) 24 hr tablet 30 [...] rectal admininstration 2345 (Given - Provider: Julia Chan, FIDEL) 0745 (Hold - Provider: Karthik Sandoval, FIDEL - Reason: Other - Comment: potssium 4.1 [...] Dawson RN) 910 (Given - Provider: Karthik Sandoval, FIDEL) Continuous [...] Julia Chan RN)0219 (Rate/Dose Verify - Provider: Julai Chan RN)0308 (Rate/Dose Change - Provider: Julia [...] Pre-Procedure 0632 (New Bag - Provider: Tessa Madera, FIDEL)1515 (Stopped - Provider: Alicia Bailey, RN) sodium chloride 0.9% (NS) (CANCELED) 250 mL/hr, Intravenous, Continuous, Starting on Wed10/27/24 at 1130, For 4 hours 1130 (New Bag - Provider: Mary Willis, FIDEL)1527 (Stopped - Provider: Mary Willis, FIDEL) sodium chloride 0.9% (NS) (CANCELED) 100 mL/hr, Intravenous, Continuous, Starting on Wed10/27/24 at 1800 1924 (New Bag - Provider: Milana Dawson, RN) 0900 (Stopped - Provider: Karthik Sandoval RN - Comment: not running upon assessment on 10/28/24) sodium chloride 0.9% (NS) (CANCELED) 100 mL/hr, Intravenous, Continuous, Starting on Wed10/27/24 at 2245, For 3 days 2301 (New Bag - Provider: Julia Chan RN)2302 (Rate/Dose Verify - Provider: Julia Chan RN)2326 (Rate/Dose Verify - Provider: uJlia Chan RN)2354 (Rate/Dose Verify - Provider: Julia Chan RN) 0001 (Rate/Dose Verify - Provider: Julia Chan RN)0100 (Rate/Dose Verify - Provider: Julia Chan RN)0213 (Stopped - Provider: Julia Chan RN)0215 (Stopped - Provider: Jluia Chan RN) sodium chloride 0.9% (NS) 100 [...] Warren Guardado, FIDEL)0909 (Restarted - Provider: Warren Guardado, FIDEL)0924 (New Bag - Provider: Warren Guardado, RN)1515 [...] BE BASED ON THE PRIMARY CLINICAL RECORDS. [employer] provides no warranty or guarantee of the accuracy or completeness of information in this document.
[2025-05-13 14:27] LABS: D-Dimer Quantitative (DVT/PE) 2.18 FEU/ug/m (0.27-0.49)
--- NOTE | 2025-05-13 14:32 | ED.RN ---
Lab called. d-dimer 2.[address] Brandon notified
[2025-05-13 14:41] LABS: Lipase 57 U/L (13-75)
[2025-05-13 14:45] LABS: AST(SGOT) 29 U/L (<=37); Alanine Aminotransfer ALT/SGPT 38 U/L (<=46); Albumin, Serum 3.6 g/dL (3.4-4.8); Alkaline Phosphatase 79 U/L (40-129); Anion Gap 19 (5-15); BUN 83 mg/dL (4-19); BUN/Creat Ratio 31.3 RATIO (10-20); Calcium,Total 8.6 mg/dL (7.6-11.0); Carbon Dioxide 17.4 mmol/L (21.0-32.0); Chloride 93 mmol/L (98-108); Estimated Creatinine Clearance 19.01 ml/min (50-250); Globulin 2.4 g/dL (2.2-4.2); Potassium 4.7 mmol/L (3.3-5.1)
--- NOTE | 2025-05-13 14:59 | ED.RN ---
selvin felipe told dr. valera, glucose was 824, and trop 122
[2025-05-13 15:01] LABS: Glucose 824 mg/dL (70-99); Pro- Brain NATRIURETIC PEPTIDE 39655 pg/mL (<=1800); Troponin T High Sensitivity 122 ng/L (<=22)
--- NOTE | 2025-05-13 15:47 | HP.PCM.HOS_ITS ---
HPI - General General Date of Admission: 05/13/25 Date of Service: 05/13/25 Chief Complaint: Dyspnea, respiratory distress. HPI Narrative The patient is an 79 y/o M w/ PMHx: Tobacco use, HFrEF/Diastolic dysfuction, Valvular Heart Disease, Secondary Pulmonary HTN, IDDM, HTN, HLD, Chronic anemia/AOCD, CKD stage IV, CAD, HTN, HLD, BPH with obstruction pathology, recent discharge 05/09/2025 following admission and evaluation for acute on chronic heart failure with reduced EF of 40% with associated acute kidney injury with creatinine 3.03 up from 2.46 initially placed on IV bumetanide eventually changed back to oral Lasix in addition to treatment for suspected acute on chronic COPD exacerbation treated with bronchodilators and Solu-Medrol discharged on a prednisone burst therapy taper who now re-presents to the [facility] ED on 05/13/2025 with history of onset of severe dyspnea starting approximately 1 hour prior to ED arrival with no recent increased cough, congestion, URI type illnesses or any recent sick contacts but given severity prompted immediate EMS call. Upon ED arrival patient noted to be in respiratory distress with increased work of breathing, conversational dyspnea, accessory muscle usage and rales at the bases bilaterally. Workup in the ED included T97.2, heart rate 75, BP 161/102, respiratory rate 21, initially 75% on 10 L CPAP transition to BiPAP with most recent repeat vitals heart rate 87, BP 165/107, respiratory rate 19, 92% on FiO2 50% BiPAP, CBC with WBC 9.2, Marc 8.8, MCV 91.8, platelet 268 without differential, VBG with pH 7.38, PO268, bicarb 22, total CO2 23, CMP with sodium 129, chloride 93,, taxine 17.4, anion gap 19, BUN/creatinine 83/2.64, GFR 24, glucose 824, lactic acid 3.3,, troponin 122, NT proBNP II 39,655, chest x-ray mildly worsened extensive pulmonary edema unable to rule out any underlying focal consolidations, EKG with sinus tachycardia with elevations in V1 and V2 and depressions inferior laterally prehospital with EKG upon arrival with nonspecific ST-T wave changes similar to previous however given EKG changes and hypoxia cardiology consulted and reviewed EKG and medical history and felt this was not a STEMI. In the ED patient ministered sublingual nitroglycerin, full-strength aspirin therapy, insulin 10 units IV x 1, Lasix 80 mg IV x 1. Pending beta hydroxybutyrate acid upon evaluation. ED reviewed case with Emulsion Operator. [facility] Medical History MADONNA (acute kidney injury) HFrEF (heart failure with reduced ejection fraction) ASCVD (arteriosclerotic cardiovascular disease) CKD (chronic kidney disease) stage 3, GFR 30-59 ml/min CKD (chronic kidney disease), stage IV Non-STEMI (non-ST elevated myocardial infarction) Bradycardia Anemia LV dysfunction Chronic anemia Tobacco use COPD (chronic obstructive pulmonary disease) HLD (hyperlipidemia) HTN (hypertension) BPH (benign prostatic hyperplasia) Chronic low back pain with sciatica Diabetes mellitus, type 2 CKD (chronic kidney disease), stage III Pneumonia COVID Wears glasses Wears dentures Medical History no medical history Home Medications ?Medication ?Instructions ?Recorded ?Last Taken ?Type insulin glargine 100 unit/mL (3 15 unit subcut QPM maciej betes 08/05/21 05/04/25 History mL) subcutaneous pen (Lantus Solostar U-100 Insulin) insulin lispro 100 unit/mL 0 unit subcut TID SLIDING S JENNIFER 08/05/21 05/05/25 History subcutaneous pen tamsulosin 0.4 mg capsule (Flomax) 0.4 mg PO DAILY [facility] [place] 08/05/21 05/04/25 History ezetimibe 10 mg tablet 10 mg PO DAILY cholesterol 0 04/06/24 05/05/25 History blood sugar diagnostic (Contour 09/12/24 Unknown Hist ory Next Test Strips) hydralazine 50 mg tablet 50 mg PO Q8H BP 04/03/2503/25 History albuterol sulfate 2.5 mg/3 mL 2.5 mg (3 mL) inhalation Q2H PRN 04/22/25 05/05/25 Rx (0.083 %) solution for nebulization PRN SOB &/OR WHEEZ ING 30 days #180 mL albuterol sulfate 90 mcg/actuation 2 inh inhalation Q6 H PRN shortness 04/22/25 05/05/25 Rx breath activated powder inhaler of breath or wheezing #1 ea (ProAir RespiClick) carvedilol 25 mg tablet 25 mg PO BIDCM blood pressur e #60 04/22/25 05/05/25 Rx tabs furosemide 40 mg tablet 40 mg PO BIDLX water pill #6 0 tabs 04/22/25 05/05/25 Rx isosorbide mononitrate 30 mg 30 mg PO DAILY BP #30 tab s 04/22/25 05/05/25 Rx tablet,extended release 24 hr nebulizer and compressor #1 ea 04/22/25 Unknown Rx finasteride 5 mg tablet 5 mg PO DAILY prostate 05/0505/05/25 History prednisone 20 mg tablet 40 mg (2 x 20 mg) PO DAILY # 10 tabs 05/09/25 Unknown Rx albuterol sulfate 90 mcg/actuation 2 puff inhalation Q 6H PRN PRN 05/13/25 Unknown History aerosol inhaler wheezing Allergy/AdvReac Type Severity Reaction Status Date / Time spironolactone AdvReac Intermediate Hyperkalemi Verified 04/19/25 03:10 a Corticosteroids AdvReac Other Verified 04/03/25 00:16 (Glucocorticoids) (steroids) Gvnqqic-TUO-ItP Reductase AdvReac Other Verified 04/03/25 00:16 Inhibitor (Vyavtsb-Cor-Ohh Reductase Inhibitor) Family History Mother COPD (chronic obstructive pulmonary disease) Father CAD (coronary artery disease) Heart disease Family History no significant family his Surgical History Hx of cystoscopy Hx of colonoscopy Hx of left cataract extraction Hx of right cataract extraction Social History household members: spouse Smoking Status: Current every day smoker tobacco type: cigarettes alcohol intake: never substance use type: does not use ROS ROS Narrative Admission Review of Systems: CONSTITUTIONAL: No fever, chills, + weakness, fatigue. HEENT: Eyes: No visual loss, blurred vision, double vision or yellow sclerae. Ears, Nose, Throat: No hearing loss, sneezing, congestion, runny nose or sore throat. SKIN: No rash or itching, lesions, wounds. CARDIOVASCULAR: + Chronic edema, worsened orthopnea. No chest pain, chest pressure or chest discomfort, palpitations, syncopal events. RESPIRATORY: + Dyspnea, occasional wheezing, frothy cough. No hemoptysis. GASTROINTESTINAL: No anorexia, nausea, vomiting or diarrhea, abdominal pain, melena, BRBPR. GENITOURINARY: + BPH with obstructive pathology/urinary frequency. No dysuria, urgency or retention. NEUROLOGICAL: No headache, dizziness, syncope, paralysis, ataxia, numbness or tingling in the extremities, focal weakness, change in bowel or bladder control, seizure. MUSCULOSKELETAL: + muscle, back pain, joint pain or stiffness. HEMATOLOGIC: + Chronic anemia, no marked easy history of bleeding/bruising. LYMPHATICS: No enlarged nodes. No history of splenectomy. PSYCHIATRIC: No history of depression or anxiety. ENDOCRINOLOGIC: No reports of sweating, cold or heat intolerance. No polyuria or polydipsia. ALLERGIES: No history of asthma, hives, eczema or rhinitis. Vital Signs Vital Signs Vital Signs: 05/13/25 13:30 05/13/25 13:36 05/13/25 13:40 Temperature 97.2 F L 97.2 F L Temperature Source Axillary Oral Pulse Rate 75 107 H 101 H Respiratory Rate 21 H 22 H 20 H Respiratory Pattern Tachypnea Blood Pressure 161/102 H 161/102 H Blood Pressure Mean 121 121 Pulse Ox 75 92 92 Oxygen Delivery Method CPAP Bi-pap Oxygen Flow Rate (L/min) 10 Fraction of Inspired Oxygen (FIO2) 50 05/13/25 14:05 05/13/25 14:14 05/13/25 14:15 Temperature Temperature Source Pulse Rate 86 87 100 Respiratory Rate 19 H 19 H 18 Respiratory Pattern Blood Pressure 165/107 H 165/107 H Blood Pressure Mean 126 125 Pulse Ox 91 92 92 Oxygen Delivery Method Bi-pap Oxygen Flow Rate (L/min) Fraction of Inspired Oxygen (FIO2) 05/13/25 14:30 05/13/25 14:45 05/13/25 15:00 Temperature Temperature Source Pulse Rate 92 96 93 Respiratory Rate 19 H 18 17 Respiratory Pattern Blood Pressure 165/88 H 192/84 H 173/90 H Blood Pressure Mean 110 114 114 Pulse Ox 92 91 92 Oxygen Delivery Method Room Air Room Air Oxygen Flow Rate (L/min) Fraction of Inspired Oxygen (FIO2) 05/13/25 15:15 Temperature Temperature Source Pulse Rate 99 Respiratory Rate 23 H Respiratory Pattern Blood Pressure 186/85 H Blood Pressure Mean 113 Pulse Ox 92 Oxygen Delivery Method Oxygen Flow Rate (L/min) Fraction of Inspired Oxygen (FIO2) Weight Weight: 135 lb Body Mass Index (BMI) 21.1 Physical Exam Narrative Physical Examination: General: Awake, alert, oriented x 3 and cooperative, seated upright in ED bed, fatigued appearing, BiPAP in place, ongoing significant respiratory distress, discussion and patient is willing to have short-term intubation, plan to transition to ICU room 1 for ED physician directed intubation. Skin: Normal color, normal turgor, no icterus, no cyanosis except occasional stage ecchymoses, occasional abrasion HEENT: AT/NC, EOMI, PERRLA, mildly dry MM, BiPAP in place, difficult to discern carotid bruit given referred sound, + JVD noted. Lungs: Significantly diminished, coarse, diffuse rales, occasional expiratory wheeze but significantly wet, evident respiratory distress, notable tachypnea, transition from BiPAP to intubation plans as noted. Heart: Mildly tachycardic with regular rhythm; no gallop, rub audible. Abdomen: Soft, NTTP, ND, distant normal BS, no appreciated HSM. Extremities: No cyanosis, no marked clubbing, mild ankle edema, stable. Neurological: Patient awake, alert, oriented as noted, cognitive function currently mildly decreased given respiratory distress presentation, pupils equally reactive to light and accommodation, cranial nerves gross normal, moving all 4 extremities, no focal deficits, strength severely globally decreased secondary to acute presentation with respiratory failure/distress. Psychiatric: Affect appears fatigued, respiratory distress worsening, plan intubation as noted above, no acute evidence of depressive or anxiety feelings. Results Lab / Micro Data 05/13/25 13:47 05/13/25 13:47 Labs: Laboratory Results - last 24 hr 05/13/25 13:47: WBC 9.2, RBC 3.06 L, Hgb 8.8 L, Hct 28.1 L, MCV 91.8, MCH 28.8, MCHC 31.3 L, RDW Std Deviation 49.3 H, RDW Coeff of Humaira 14.8 H, Plt Count 268, MPV 11.9, D-Dimer Quant (PE/DVT) 2.18 H*, Sodium 129 L, Potassium 4.7, Chloride 93 L, Carbon Dioxide 17.4 L, Anion Gap 19 H, BUN 83 H, Creatinine 2.64 H, Estim Creat Clear Calc 19.01 L, Est GFR (MDRD) Non-Af 24 L, BUN/Creatinine Ratio 31.3 H, Glucose 824 H*, Lactic Acid 3.3 H*, Calcium 8.6, Total Bilirubin 0.35, AST 29, ALT 38, Alkaline Phosphatase 79, Troponin T High Sens 122 H* D, [place] [address] H, Total Protein 6.0, Albumin 3.6, Globulin 2.4, Albumin/Globulin Ratio 1.5, Lipase 57 Micro: Microbiology 05/13/25 13:47 Mucosa - Nose SARS-CoV-2, Influenza & RSV (PCR) - Final ABG Data ABG results: ABG 05/13/25 13:57 Specimen Type JUANITA Sample Site Not entered VBG pH 7.38 VBG pO2 68 H VBG HCO3 22 VBG Total CO2 23 VBG O2 Sat (Calc) 93 H VBG Base Excess -3 L POC Mix VBG pCO2 Pt Tmp 37.3 L O2 Delivery Device Not entered Imaging Radiology Impression Chest X-Ray 05/13/25 13:54 IMPRESSION: Mildly worse extensive pulmonary edema. Underlying focal consolidations not excluded. Reading Location: [facility] Assessment & Plan Assessment/Plan (1) Acute on chronic HFrEF (heart failure with reduced ejection fraction): PLAN: Plan The patient is an 79 y/o M w/ PMHx: Tobacco use, HFrEF/Diastolic dysfuction, Valvular Heart Disease, Secondary Pulmonary HTN, IDDM, HTN, HLD, Chronic anemia/AOCD, CKD stage IV, CAD, HTN, HLD, BPH with obstruction pathology, recent discharge 05/09/2025 following admission and evaluation for acute on chronic heart failure with reduced EF of 40% with associated acute kidney injury with creatinine 3.03 up from 2.46 initially placed on IV bumetanide eventually changed back to oral Lasix in addition to treatment for suspected acute on chronic COPD exacerbation treated with bronchodilators and Solu-Medrol discharged on a prednisone burst therapy taper who now re-presents to the [facility] ED on 05/13/2025 with history of onset of severe dyspnea starting approximately 1 hour prior to ED arrival with no recent increased cough, congestion, URI type illnesses or any recent sick contacts but given severity prompted immediate EMS call. #1. Acute Hypoxic Respiratory Failure secondary to Acute on Chronic COPD Exacerbation and concern for recurrent Acute on Chronic HFrEF Exacerbation with elevated cardiac enzyme similar to recent levels likely secondary to demand ischemia/hypoxia associated with significant lactic acidosis felt likely secondary to similarly demand/hypoxia in addition to #2 with elevated D-dimer of unclear significance given significant renal disease and other comorbidities: Will admit to the ICU, given worsening respiratory status and patient amenability now to short-term intubation will transition from room 3 to ICU bed 1 with intubation plan per ED physician, following intubation will maintain intubated and sedated in the ICU, will plan repeat ABG in 1 to 2 hours, will consult creel selector per protocol, will maintain on cardiac telemetry obtain cardiac enzyme series, obtain serial EKGs, continue IV lasix diuresis, monitor I/Os, maintain on intake restriction, continue medical therapy, obtain TSH and magnesium level. FLP in AM. Most recent ECHO noted 04/03/2025 as noted thus will defer immediate repeat but if enzymes rise significantly or preference of cardiology will request repeat. Will maintain oxygen once transitioned off BiPAP with wean as tolerated to home supplementation, maintain on ATC DuoNeb therapy, Albuterol, IV Solu-Medrol, encourage head of bed and I-S parameters, will attempt to obtain sputum culture, will obtain full respiratory viral panel, will obtain procalcitonin and if significantly elevated or concerns arise will initiate also on antibiotic therapy if appropriate. MRSA screen requested. Will maintain on heparin drip pending Duplex ultrasound bilateral lower extremity requested given elevated dimer. Will continue Cardiology consultation. #2. Hyperglycemia with suspected possible underlying DKA versus HHS with IDDM: Beta hydroxybutyrate acid pending upon request evaluation of patient. If this is elevated and consistent with DKA presentation would initiate and continue on insulin drip, check serial K+, glucose w/ IVF (low dose 50 cc/hr given #1) changes pending these levels, serial chemistry, obtain mag, phos daily w/ repletion as needed with transition to home SC regimen when gap closed w/ overlap on drip, nutrition consultation. Encourage diet and insulin regimen compliance. Most recent hemoglobin A1c noted 04/19/2025 7.1%. If hydroxybutyrate acid is not elevated we will pursue workup for HHS (requested osmolality level) and if also elevated will pursue insulin drip at that time. #3. Hyponatremia, suspected hypervolemic status secondary to #1: Admission CMP with sodium 129, chloride 93, suspect related with #1 and also #2, will continue to treat with diuresis and correction of potentially #2 DKA although awaiting further workup as noted, continue to serially trend BMP given #2, repeat CMP in AM. #4. EKG changes of unclear significance with V1 and V2 elevation with depression in inferior lateral leads: Prehospital EMS EKG with sinus tachycardia with elevations in V1 and V2 and depressions inferior laterally with repeat EKG upon arrival with nonspecific ST-T wave changes similar to previous however given EKG changes and hypoxia cardiology consulted and reviewed EKG and medical history and felt this was not a STEMI, will continue aspirin, Zetia given statin intolerance, FLP in AM, magnesium requested, will maintain on telemetry with continued serial cardiac enzyme trending, if enzymes rise significantly will obtain repeat echocardiogram however recently obtained as noted 04/03/2025. Will continue Cardiology consultation. #5. Valvular heart disease: Most recent echocardiogram 04/03/2025 with mild to distal anteroseptal, inferoseptal, inferior and posterior hypokinesis, estimated LVEF 40%, stage I diastolic dysfunction, mildly enlarged LA, severe mitral annular calcification, moderate 2+ posteriorly directed MDI, RVSP 41 minimally mercury, aortic sclerosis with no stenosis. #6. CAD: Following with cardiology in [place] Dr. Terrazas, known three-vessel coronary disease not amenable to surgery or percutaneous revascularization, continued medical management, currently clarifying if patient is on daily baby aspirin, noted statin intolerance on Zetia, continue Coreg, not on PASCALE inhibitor/ARB given underlying renal disease. #7. Chronic normocytic anemia/anemia of chronic disease: Admission hemoglobin 8.8, MCV 91.8, baseline hemoglobin 7-9, stable, continue to trend. #8. Chronic Kidney Disease Stage IV: Admission BUN/Cr 83/2.64, GFR 24, baseline renal function vacillates but primarily 2.7-3.0 but certainly has increased above 3, recent discharge 05/09/2025 BUN/Harjinder 80/2.87, GFR 21, repeat BMP in AM. #9. Hypertension: Continue home regimen including Coreg, hydralazine, isosorbide, IV Lasix judiciously, PRN hydralazine. #10. Hyperlipidemia: Will continue patient on Zetia regimen. Noted statin intolerance. FLP in AM. #11. BPH with obstructive pathology: Will continue patient home Proscar and Flomax regimen. #12. Tobacco Abuse: Encouraged cessation, inpatient consultation per RT, NR if desired. #13. DVT prophylaxis: Heparin drip pending cardiac enzyme and duplex US given elevated d-dimer as noted to be cautious. #14. CODE status: Patient NINA is his who is present and living will is currently in place. Given impending demise and need for possible intubation, discussed with family and patient CODE status at length including difference between FULL code, DNR-CCA and DNR-CC status. Following discussions about the differences in these status, requested continuation of DNRCC status but allowance of short-term intubation. Advanced Care Planning Face to Face Time: 16 minutes. Charges/Coding Visit Charges Inpatient E&M: 63960 Init Hosp L3 Procedures Hospitalists Procedures: 46816 Advncd Care Plan 30 Min
--- NOTE | 2025-05-13 16:02 | VDLE_ITS ---
Reason For Study Reason For Study: Elevated D Dimer RIGHT LEFT GSV is normal. GSV is normal. CFV is compressible, spontaneous, phasic, competent CFV is compressible, spontaneous, phasic, competent, and demonstrates normal augmentation. and demonstrates normal augmentation. FV is compressible, spontaneous, phasic, competent FV is compressible, spontaneous, phasic, competent and demonstrates normal augmentation. and demonstrates normal augmentation. POP V is compressible, spontaneous, phasic, competent POP V is compressible, spontaneous, phasic, competent and demonstrates normal augmentation. and demonstrates normal augmentation. T/P Trunk is compressible. T/P Trunk is compressible. PTV is compressible. PTV is compressible. RT PerV is compressible. LT PerV is compressible. Procedure This is a venous duplex using B-mode, color flow and spectral Doppler. Exam performed in department. The exam was diagnostic. A preliminary report was called and/or faxed to [facility]. VL/Venous Duplex US - Kenneth Extrem Interpretation Summary Deep veins of the bilateral lower extremities are patent and compressible segme ntally. There is no evidence of bilateral lower extremity deep vein thrombosis. The bilateral great saphenous veins appea r patent and compressible segmentally. Ordering Physician: Dyana Hwang Referring Physician: Ryley Montenegro Performed By: Pierce Eaton RVT
[2025-05-13] MEDS: Insulin Lispro 100 UNIT/ML VIAL (ADMELOG) 10 UNIT IV (16:04)
--- OUTSIDE RECORDS SUMMARY | 2025-05-13 16:19 | XMS RPT_ITS | CCD ---
Author Organization [facility] Care Team Providers Care Denial Resolution Specialist Name Role Phone Nancy Mirza Unavailable Unavailable Nancy Mirza Unavailable Unavailable Nancy Mirza Unavailable Unavailable Unavailable Primary Care Provider Nancy Calles Primary Care Provider Nancy Mirza Primary Care Provider Nancy Mirza Primary Care Provider Naresh Mirza MD, Nancy Key Primary Care Provider Nacny Mirza MD Primary Care Provider [phone] Nancy Mirza MD Primary Care Provider Nancy [...] Yuki, Dr. Nancy Key Attending Unavaila ble Ykui, Dr. Nancy Key Primary Care Unavaila ble [...] Provider Ryley Jeter MD Primary Care Provider [phone] Dr. Ayanna Albert Attending Unavail able ORTEGA, FILLER SPREADER PATYMOE STEWART Referring Unava ilNANCY Wray Primary [...] Primary Care Unavailable Kristy Parker MD Unavailable [phone] Ryley Jeter MD Primary Care Provider Belkis URIBE, Dr. Suresh Attending Provider Generic Provider , No Assigned Pcp Primary Car e Provider Unavailable [facility] Consulting Unavai BERNADETTE Felix Attending [...] Jesus URIBE, Dr. Wood Other Provider [phone] Keenan URIBE, Dr. Song Other Provider [phone] Mervin URIBE, Dr. Gutiérrez Other Provider [phone] Deep URIBE, Dr. Arredondo Other Provider [phone] Saritha URIBE, Dr. Ya Other Provider Radha URIBE, Dr. Guerra [facility] Woods MD, Dr. Mar Other Provider Demetri URBIE, Dr. Altamirano Other Provider Cordelia URIBE, Dr. Walsh Other Provider Lucinda URIBE, Dr. Barton Other Provider [phone] Dillon Moses DO Other Provider [phone] Tiffanie URIBE, Dr. Ballesteros Other Provider [phone] Jay Gallardo MD, Dr. Corona Other Provider [phone] Asim VERDUZCO, Dr. Mantilla Other Provider Andrei URIBE, Dr. Sullivan Other Provider [phone] Callum URIBE, Dr. Kent Other Provider [phone] Sai URIBE, Dr. Rain Attending Provider Adrian URIBE, Dr. Tijerina Attending Provider Veronica URIBE, Dr. Valentin Attending Provider Janelle URIBE, Dr. Smooth Ahn Attending Provider Teresa URIBE, Dr. Jose Perez Attending Provider WOO SMALL Referring [facility] Steffany URIBE, [facility] Primary Care Provider Belkis URIBE, Dr. [...] Elvie URIBE, Dr. Butcher Other Provider [phone] Jesus URIBE, Dr. Wood Other Provider [phone] Keenan URIBE, Dr. Song Other Provider Mervin URIBE, Dr. Gutiérrez Other Provider Deep URIBE, Dr. Arredondo Other Provider Saritha URIBE, Dr. Ya Other Provider Radha URIBE, Dr. Guerra Other Provider Unavailabl ariela Woods MD, Dr. Mar Other Provider [phone] Demetri URIBE, Dr. Altamirano Other Provider Cordelia URIBE, Dr. Walsh Other Provider [phone] Lucinda URIBE, Dr. Barton Other Provider Josué VERDUZCO, Dr. Carranza Other Provider [phone] Tiffanie URIBE, Dr. Ballesteros Other Provider [phone] Sami URIBE, Dr. Corona Other Provider [phone] Jose Rafael Dailey DO Other Provider [...] Provider Alejandra VERDUZCO, Dr. Ann Attending Provider STEFFANY, CHALON TUCKER Primary Care Unavailable DAY, WOO LRASEN Attending Unavailable STEFFANY, CHALON TUCKER Primary Care [...] Unavailable Dr. Carlita Raygoza DO Other Provider [phone] Carlita Raygoza DO Attending Provider [phone] Allergies Allergy Classification Reported Allergen(s) Allergy Type Date of Onset Reaction(s) Facility Corticosteroids (1 source) predniSONE Drug Allergy 08-24-20 23 Other (See Comments) [facility] HMG-CoA Reductase Inhibitors (statins) (3 sources) Hmg-Coa Reductase Inhibitors (Statins) Drug Allergy 01-08-20 16 [facility] (20 sources) Hmg-Coa Reductase Inhibitors (Statins); Translations: [LEWIKNF-JBQ-SQG REDUCTASE INHIBITORS] Propensity to adverse reactions to drug 01-08-20 16 Other [facility] Work Phone: (6 sources) HMG-CoA reductase inhibitor Propensity to adverse reactions to drug 01-08-20 16 [facility] (20 sources) HMG-CoA reductase inhibitor Propensity to adverse reactions to drug 01-08-20 16 Unknown [facility] (18 sources) predniSONE; Translations: [predniSONE TABS] Drug Allergy 08-24-20 23 Other, Other (See Comments) [facility] (4 sources) predniSONE; Translations: [PREDNISONE] Drug Allergy 08-24-[address] [facility] (7 sources) Glucocorticoid Receptor Agonists Propensity to adverse reactions 04-06-20 24 Other [facility] Comment on above: Blood sugar increase (4 sources) Spironolactone Drug Allergy 04-19-20 25 [facility] (1 source) Corticosteroids Drug allergy (disorder) 04-03-20 25 [facility] Repository (1 source) Spironolactone Drug Allergy 04-19-20 25 [facility] Repository (1 source) Ydndezg-Zuj-Fdl Reductase Inhibitor Drug allergy (disorder) 04-03-20 25 [facility] Repository Medications Current Medications Medication Drug Class(es) [...] 11/27/23 at 0337 Anginal pain, may repeat [id number] x3, then notify physician. DO NOT CRUSH [...] (porcine) injection 4,000 Units Start: 11-26-2023 take [id number] [IU] intravenously every four hours as needed [...] PLACED TUBE OR TUBE less than 14 Malagasy. 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, [address] PROTIME Normal 11.7-14.9 [facility] Comment on above: Result Comment: Ray elled via OM: MD Ordered Performed By: #### L 300.3900 ####[facility] [address] [place], [address] Prothrombin Time w/INRon INR Normal [facility] Comment on above: Result Comment: Ray elled via OM: MD Ordered Performed By: #### L 300.3900 ####[facility] [address] [place], [address] PROTIME Normal 11.7-14.9 [facility] Comment on above: Result Comment: Ray elled via OM: MD Ordered Performed By: #### L 300.3900 ####[facility] [address] [place], [address] Absolute lymphocyte countOrd ered By: Malika Fonseca on 05-09-2025 Lymphocytes Auto (Unsp spec) [#/Vol] 0.27 10*3/uL Low 0.83-4.51 [facility] Anion gap in Serum or Plasma Ordered By: Malika Fonseca on 05-09-2025 Anion gap [Moles/Vol] 15 mmol/L 5-15 [facility] Automated lymphocyte count a s percentage of total leukocytesOrdered By: Malika Fonseca on 05-09-2025 Lymphocytes/100 WBC Auto (Unsp spec) 4.3 % Low 19-41 [facility] BUN/creatinine ratioOrdered By: Malika Fonseca on 05-09-2025 Urea nitrogen/Creatinine [Mass ratio] 27.8 mg/mg High - [facility] Basic Metabolic Profile (BMP )on 05-09-2025 BUN/CRE 27.8 RATIO High - [facility] Comment on above: Performed By: #### L 500.2500, L100.0100 ####[facility] [address] [place], [address] Calcium [Mass/Vol] 8.3 mg/dL Normal 7.6-11.0 [facility] Comment on above: Performed By: #### L 500.2500, L100.0100 ####[facility] [address] [place], [address] Chloride [Moles/Vol] 103 mmol/L Normal 98-108 [facility] Comment on above: Performed By: #### L 500.2500, L100.0100 ####[facility] [address] [place], [address] CO2 [Moles/Vol] 22.0 mmol/L Normal 21.0-32.0 [facility] Comment on above: Performed By: #### L 500.2500, L100.0100 ####[facility] [address] [place], [address] Creatinine [Mass/Vol] 2.87 mg/dL High 0.70-1.20 [facility] Comment on above: Performed By: #### L 500.2500, L100.0100 ####[facility] [address] [place], [address] ECRCL 18.87 ml/min Low 50-250 [facility] Comment on above: Performed By: #### L 500.2500, L100.0100 ####[facility] [address] [place], [address] GAP 15 Normal 5-15 [facility] Comment on above: Performed By: #### L 500.2500, L100.0100 ####[facility] [address] [place], [address] GFR/1.73 sq M.predicted among non-blacks MDRD (S/P/Bld) [Vol rate/Area] 21 mL/min/{1.73_m2} Low >60 [place] Comment on above: Result Comment: mL/m in/1.73m2 CKD-EPI Creatinine Equation (2020) Performed By: #### L 500.2500, L100.0100 ####[facility] [address] [place], [address] Glucose [Mass/Vol] 336 mg/dL High 70-99 [facility] Comment on above: Performed By: #### L 500.2500, L100.0100 ####[facility] [address] [place], [address] Potassium [Moles/Vol] 4.1 mmol/L Normal 3.3-5.1 [facility] Comment on above: Performed By: #### L 500.2500, L100.0100 ####[facility] [address] [place], [address] Sodium [Moles/Vol] 140 mmol/L Normal 133-145 [facility] Comment on above: Performed By: #### L 500.2500, L100.0100 ####[facility] [address] [place], [address] Urea nitrogen [Mass/Vol] 80 mg/dL High 4-19 [facility] Comment on above: Performed By: #### L 500.2500, L100.0100 ####[facility] [address] [place], [address] Basophil percentageOrdered B y: Malika Fonseca on 05-09-2025 Basophils/100 WBC (Bld) 0.2 % 0-1 [facility] Bedside Glucoseon 05-09-2025 FINGERSTICK GLU 490 mg/dL Invalid Interpretation Code 74-106 [facility] Comment on above: Result Comment: ADITI GEMENT OF PATIENT CARE PER NURSING PROTOCOL Performed By: #### L 501.080 ####[facility] [address] [place], [address] FINGERSTICK GLU 414 mg/dL High 74-106 [facility] Comment on above: Result Comment: ADITI GEMENT OF PATIENT CARE PER NURSING PROTOCOL Performed By: #### L 501.080 ####[facility] [address] [place], [address] FINGERSTICK GLU 309 mg/dL High 74-106 [facility] Comment on above: Result Comment: ADITI GEMENT OF PATIENT CARE PER NURSING PROTOCOL Performed By: #### L 501.080 ####[facility] [address] [place], [address] CBC W/Diff, Automatedon 07-0 Absolute Lymph 0.27 X10 3/uL Low 0.83-4.51 [facility] Comment on above: Performed By: #### L 500.2500, L100.0100 ####[facility] [address] [place], [address] Absolute Neut 5.9 X10 3/uL Normal 2.0-7.7 [facility] Comment on above: Performed By: #### L 500.2500, L100.0100 ####[facility] [address] [place], [address] Basophils/100 WBC (Bld) 0.2 % Normal 0-1 [facility] Comment on above: Performed By: #### L 500.2500, L100.0100 ####[facility] [address], [address] Eosinophils/100 WBC (Bld) 0.0 % Normal 0-5 [facility] Comment on above: Performed By: #### L 500.2500, L100.0100 ####[facility] [address] [place], [address] Erythrocyte distribution width (RBC) [Ratio] 14.3 % Normal 11.6-14.6 [facility] Comment on above: Performed By: #### L 500.2500, L100.0100 ####[facility] [address] [place], [address] Hematocrit (Bld) [Volume fraction] 23.8 % Low 40-54 [facility] Comment on above: Performed By: #### L 500.2500, L100.0100 ####[facility] [address] [place], [address] Hemoglobin (Bld) [Mass/Vol] 7.6 g/dL Low 13.0-16.5 [facility] Comment on above: Performed By: #### L 500.2500, L100.0100 ####[facility] [address] [place], [address] IG% 0.600 Normal 0.0-0.9 [facility] Comment on above: Result Comment: IG% - Immature Granulocytes (promyelocytes, myelocytes andmetamyelocytes) > 1% indicates that a LEFT SHIFT is Present. Performed By: #### L 500.2500, L100.0100 ####[facility] [address] [place], [address] Lymphocytes/100 WBC (Bld) 4.3 % Low 19-41 [facility] Comment on above: Performed By: #### L 500.2500, L100.0100 ####[facility] [address] [place], [address] MCH (RBC) [Entitic mass] 29.3 pg Normal 27.0-32.0 [facility] Comment on above: Performed By: #### L 500.2500, L100.0100 ####[facility] [address] [place], [address] MCHC (RBC) [Mass/Vol] 31.9 g/dL Low 32-36 [facility] Comment on above: Performed By: #### L 500.2500, L100.0100 ####[facility] [address] [place], [address] MCV (RBC) [Entitic vol] 91.9 fL Normal 80-94 [facility] Comment on above: Performed By: #### L 500.2500, L100.0100 ####[facility] [address] [place], [address] Monocytes/100 WBC (Bld) 1.6 % Normal 0-10 [facility] Comment on above: Performed By: #### L 500.2500, L100.0100 ####[facility] [address] [place], [address] Neutrophils/100 WBC (Bld) 93.3 % High 47-70 [facility] Comment on above: Performed By: #### L 500.2500, L100.0100 ####[facility] [address] [place], [address] Nucleated RBC (Bld) [#/Vol] 0 10*3/uL Normal 0-5 [facility] Comment on above: Performed By: #### L 500.2500, L100.0100 ####[facility] [address] [place], [address] Platelet mean volume (Bld) [Entitic vol] 11.5 fL Normal 6.2-12.0 [facility] Comment on above: Performed By: #### L 500.2500, L100.0100 ####[facility] [address] [place], [address] Platelets (Bld) [#/Vol] 153 10*3/uL Normal 150-450 [facility] Comment on above: Performed By: #### L 500.2500, L100.0100 ####[facility] [address] [place], [address] RBC (Bld) [#/Vol] 2.59 10*6/uL Low 4.6-6.2 [facility] Comment on above: Performed By: #### L 500.2500, L100.0100 ####[facility] [address] [place], [address] RDW SD 47.9 fl High 35.1-43.9 [facility] Comment on above: Performed By: #### L 500.2500, L100.0100 ####[facility] [address] [place], [address] WBC (Bld) [#/Vol] 6.3 10*3/uL Normal 4.4-11.0 [facility] Comment on above: Performed By: #### L 500.2500, L100.0100 ####[facility] [address] [place], [address] Carbon dioxide, total [Moles /volume] in Central venous bloodOrdered By: Malika Fonseca on 05-09-2025 CO2 [Moles/Vol] 22.0 mmol/L 21.0-32.0 [facility] Chloride assayOrdered By: Rogerio Fonseca on 05-09-2025 Chloride [Moles/Vol] 103 mmol/L 98-108 [facility] Eosinophil percentageOrdered By: Malika Fonseca on 05-09-2025 Eosinophils/100 WBC (Bld) 0.0 % 0-5 [facility] Erythrocyte distribution wid th ratioOrdered By: Malika Fonseca on 05-09-2025 Erythrocyte distribution width (RBC) [Ratio] 14.3 % 11.6-14.6 [facility] Erythrocyte distribution wid th standard deviationOrdered By: Malika Fonseca on 05-09-2025 Erythrocyte distribution width (RBC) [Ratio] 47.9 fl High 35.1-43.9 [facility] Folates, RBCon 05-09-2025 Fol.,Hemolysate 444.0 ng/mL Normal Not Estab. [facility] Comment on above: Performed By: #### L 3100.1725 ####[facility] [address] [place], [place], [id number] Folate, RBC 1552 ng/mL Normal >498 [facility] Comment on above: Result Comment: Perf ormed at: - [facility] [address] [id number] Director: Todd Anderson PhD, Phone: [phone] Performed By: #### L 3100.1725 ####[facility] [address] [place], [address] Hematocrit (Bld) [Volume fraction] 28.6 % Low 37.5-51.0 [facility] Comment on above: Performed By: #### L 3100.1725 ####[facility] [address] [place], [address] Glomerular filtration rate ( GFR) estimation/1.73 sq m using serum, plasma, or whole bOrdered By: Malika Fonseca on 05-09-2025 GFR/1.73 sq M.predicted among non-blacks MDRD (S/P/Bld) [Vol rate/Area] 21 mL/min/{1.73_m2} Low >60 [place] [facility] By: Malika Fonseca on 05-09-2025 Glucose [Mass/Vol] 490 mg/dL High 74-106 [facility] Hematocrit Auto (Bld) [Volum e fraction]Ordered By: Malika Fonseca on 05-09-2025 Hematocrit (Bld) [Volume fraction] 23.8 % Low 40-54 [facility] Hemoglobin measurementOrdere d By: Malika Fonseca on 05-09-2025 Hemoglobin (Bld) [Mass/Vol] 7.6 g/dL Low 13.0-16.5 [facility] Immature granulocytes/100 WB C Auto (Bld)Ordered By: Malika Fonseca on 05-09-2025 Immature granulocytes/100 WBC (Bld) 0.600 % 0.0-0.9 [facility] MCV (mean corpuscular volume ) determinationOrdered By: Malika Fonseca on 05-09-2025 MCV (RBC) [Entitic vol] 91.9 fL 80-94 [facility] Mean corpuscular hemoglobin (MCH) determinationOrdered By: Malika Fonseca on 05-09-2025 MCH (RBC) [Entitic mass] 29.3 pg 27.0-32.0 [facility] Monocyte percentageOrdered B y: Malika Fonseca on 05-09-2025 Monocytes/100 WBC (Bld) 1.6 % 0-10 [facility] Neutrophil percentageOrdered By: Malika Fonseca on 05-09-2025 Neutrophils/100 WBC (Bld) 93.3 % High 47-70 [facility] Platelet countOrdered By: Rogerio Fonseca on 05-09-2025 Platelets (Bld) [#/Vol] 153 10*3/uL 150-450 [facility] Potassium measurement (mass/ volume)Ordered By: Malika Fonseca on 05-09-2025 Potassium (Unsp spec) [Mass/Vol] 4.1 mmol/L 3.3-5.1 [facility] Prothrombin Time w/INRon INR Normal [facility] Comment on above: Result Comment: Ray toussaint via OM: Ordered Performed By: #### L 300.3900 ####[facility] [address] [place], [place], [address] PROTIME Normal 11.7-14.9 [facility] Comment on above: Result Comment: Ray toussaint via OM: Ordered Performed By: #### L 300.3900 ####[facility] [address] [place], [place], [phone] RBC Auto (Bld) [#/Vol]Ordere d By: Malika Fonesca on 05-09-2025 RBC (Bld) [#/Vol] 2.59 10*6/uL Low 4.6-6.2 [facility] Serum creatinine measurement (mass/volume)Ordered By: Malika Fonseca on 05-09-2025 Creatinine [Mass/Vol] 2.87 mg/dL High 0.70-1.20 [facility] Serum glucose measurement (m ass/volume)Ordered By: Malika Fonseca on 05-09-2025 Glucose [Mass/Vol] 336 mg/dL High 70-99 [facility] Serum or plasma calcium nikkie urement (mass/volume)Ordered By: Malika Fonseca on 05-09-2025 Calcium [Mass/Vol] 8.3 mg/dL 7.6-11.0 [facility] Serum or plasma urea nitroge n measurement (mass/volume)Ordered By: Malika Fonseca on 05-09-2025 Urea nitrogen [Mass/Vol] 80 mg/dL High 4-19 [facility] Sodium levelOrdered By: Malika Fonseca on 05-09-2025 Sodium [Moles/Vol] 140 mmol/L 133-145 [facility] White blood cell (WBC) count Ordered By: Malika Fonseca on 05-09-2025 WBC (Bld) [#/Vol] 6.3 10*3/uL 4.4-11.0 [facility] Basic Metabolic Profile (BMP )on 05-08-2025 BUN/CRE 29.0 RATIO High 10-20 [facility] Comment on above: Performed By: #### L 500.2500, L503.6030, L501.9520, L503.6550, L503.0106, L100.0100 ####[facility] [address] [place], [address] Calcium [Mass/Vol] 8.6 mg/dL Normal 7.6-11.0 [facility] Comment on above: Performed By: #### L 500.2500, L503.6030, L501.9520, L503.6550, L503.0106, L100.0100 ####[facility] [address] [place], [address] Chloride [Moles/Vol] 103 mmol/L Normal 98-108 [facility] Comment on above: Performed By: #### L 500.2500, L503.6030, L501.9520, L503.6550, L503.0106, L100.0100 ####[facility] [address] [place], [address] CO2 [Moles/Vol] 23.2 mmol/L Normal 21.0-32.0 [facility] Comment on above: Performed By: #### L 500.2500, L503.6030, L501.9520, L503.6550, L503.0106, L100.0100 ####[facility] [address] [place], [address] Creatinine [Mass/Vol] 2.91 mg/dL High 0.70-1.20 [facility] Comment on above: Performed By: #### L 500.2500, L503.6030, L501.9520, L503.6550, L503.0106, L100.0100 ####[facility] [address] [place], [address] ECRCL 18.61 ml/min Low 50-250 [facility] Comment on above: Performed By: #### L 500.2500, L503.6030, L501.9520, L503.6550, L503.0106, L100.0100 ####[facility] [address] [place], [address] GAP 14 Normal 5-15 [facility] Comment on above: Performed By: #### L 500.2500, L503.6030, L501.9520, L503.6550, L503.0106, L100.0100 ####[facility] [address] [place], [address] GFR/1.73 sq M.predicted among non-blacks MDRD (S/P/Bld) [Vol rate/Area] 21 mL/min/{1.73_m2} Low >60 [place] Comment on above: Result Comment: mL/m in/1.73m2 CKD-EPI Creatinine Equation (2020) Performed By: #### L 500.2500, L503.6030, L501.9520, L503.6550, L503.0106, L100.0100 ####[facility] [address] [place], [address] Glucose [Mass/Vol] 247 mg/dL High 70-99 [facility] Comment on above: Performed By: #### L 500.2500, L503.6030, L501.9520, L503.6550, L503.0106, L100.0100 ####[facility] [address] [place], [address] Potassium [Moles/Vol] 4.5 mmol/L Normal 3.3-5.1 [facility] Comment on above: Performed By: #### L 500.2500, L503.6030, L501.9520, L503.6550, L503.0106, L100.0100 ####[facility] [address], [address] Sodium [Moles/Vol] 140 mmol/L Normal 133-145 [facility] Comment on above: Performed By: #### L 500.2500, L503.6030, L501.9520, L503.6550, L503.0106, L100.0100 ####[facility] [address], [address] Urea nitrogen [Mass/Vol] 85 mg/dL High 4-19 [facility] Comment on above: Performed By: #### L 500.2500, L503.6030, L501.9520, L503.6550, L503.0106, L100.0100 ####[facility] [address] [place], [address] Bedside Glucoseon 05-08-2024 FINGERSTICK GLU 315 mg/dL High 74-106 [facility] Comment on above: Result Comment: ADITI GEMENT OF PATIENT CARE PER NURSING PROTOCOL Performed By: #### L 501.080 ####[facility] [address] [place], [address] FINGERSTICK GLU 247 mg/dL High -106 [facility] Comment on above: Result Comment: ADITI GEMENT OF PATIENT CARE PER NURSING PROTOCOL Performed By: #### L 501.080 ####[facility] [address] [place], [address] FINGERSTICK GLU 227 mg/dL High -106 [facility] Comment on above: Result Comment: ADITI GEMENT OF PATIENT CARE PER NURSING PROTOCOL Performed By: #### L 501.080 ####[facility] [address] [place], [address] FINGERSTICK GLU 241 mg/dL High [address] [place] [address] Comment on above: Result Comment: ADITI GEMENT OF PATIENT CARE PER NURSING PROTOCOL Performed By: #### L 501.080 ####[facility] [address] [place], [address] CBC W/Diff, Automatedon 07-0 Absolute Lymph 1.03 X10 3/uL Normal 0.83-4.51 [facility] Comment on above: Performed By: #### L 500.2500, L503.6030, L501.9520, L503.6550, L503.0106, L100.0100 ####[facility] [address] [place], [address] Absolute Neut 10.0 X10 3/uL High 2.0-7.7 [facility] Comment on above: Performed By: #### L 500.2500, L503.6030, L501.9520, L503.6550, L503.0106, L100.0100 ####[facility] [address] [place], [address] Basophils/100 WBC (Bld) 0.3 % Normal 0-1 [facility] Comment on above: Performed By: #### L 500.2500, L503.6030, L501.9520, L503.6550, L503.0106, L100.0100 ####[facility] [address] [place], [address] Eosinophils/100 WBC (Bld) 0.6 % Normal 0-5 [facility] Comment on above: Performed By: #### L 500.2500, L503.6030, L501.9520, L503.6550, L503.0106, L100.0100 ####[facility] [address] [place], [address] Erythrocyte distribution width (RBC) [Ratio] 14.3 % Normal 11.6-14.6 [facility] Comment on above: Performed By: #### L 500.2500, L503.6030, L501.9520, L503.6550, L503.0106, L100.0100 ####[facility] [address] [place], [address] Hematocrit (Bld) [Volume fraction] 27.0 % Low 40-54 [facility] Comment on above: Performed By: #### L 500.2500, L503.6030, L501.9520, L503.6550, L503.0106, L100.0100 ####[facility] [address] [place], [address] Hemoglobin (Bld) [Mass/Vol] 8.6 g/dL Low 13.0-16.5 [facility] Comment on above: Performed By: #### L 500.2500, L503.6030, L501.9520, L503.6550, L503.0106, L100.0100 ####[facility] [address] [place], [address] IG% 0.700 Normal 0.0-0.9 [facility] Comment on above: Result Comment: IG% - Immature Granulocytes (promyelocytes, myelocytes andmetamyelocytes) > 1% indicates that a LEFT SHIFT is Present. Performed By: #### L 500.2500, L503.6030, L501.9520, L503.6550, L503.0106, L100.0100 ####[facility] [address] [place], [address] Lymphocytes/100 WBC (Bld) 8.7 % Low 19-41 [facility] Comment on above: Performed By: #### L 500.2500, L503.6030, L501.9520, L503.6550, L503.0106, L100.0100 ####[facility] [address] [place], [address] MCH (RBC) [Entitic mass] 29.2 pg Normal 27.0-32.0 [facility] Comment on above: Performed By: #### L 500.2500, L503.6030, L501.9520, L503.6550, L503.0106, L100.0100 ####[facility] [address] [place], [address] MCHC (RBC) [Mass/Vol] 31.9 g/dL Low 32-36 [facility] Comment on above: Performed By: #### L 500.2500, L503.6030, L501.9520, L503.6550, L503.0106, L100.0100 ####[facility] [address] [place], [address] MCV (RBC) [Entitic vol] 91.5 fL Normal 80-94 [facility] Comment on above: Performed By: #### L 500.2500, L503.6030, L501.9520, L503.6550, L503.0106, L100.0100 ####[facility] [address] [place], [address] Monocytes/100 WBC (Bld) 4.6 % Normal 0-10 [facility] Comment on above: Performed By: #### L 500.2500, L503.6030, L501.9520, L503.6550, L503.0106, L100.0100 ####[facility] [address] [place], [address] Neutrophils/100 WBC (Bld) 85.1 % High 47-70 [facility] Comment on above: Performed By: #### L 500.2500, L503.6030, L501.9520, L503.6550, L503.0106, L100.0100 ####[facility] [address] [place], [address] Nucleated RBC (Bld) [#/Vol] 0 10*3/uL Normal 0-5 [facility] Comment on above: Performed By: #### L 500.2500, L503.6030, L501.9520, L503.6550, L503.0106, L100.0100 ####[facility] [address] [place], [address] Platelet mean volume (Bld) [Entitic vol] 11.0 fL Normal 6.2-12.0 [facility] Comment on above: Performed By: #### L 500.2500, L503.6030, L501.9520, L503.6550, L503.0106, L100.0100 ####[facility] [address] [place], [address] Platelets (Bld) [#/Vol] 193 10*3/uL Normal 150-450 [facility] Comment on above: Performed By: #### L 500.2500, L503.6030, L501.9520, L503.6550, L503.0106, L100.0100 ####[facility] [address] [place], [address] RBC (Bld) [#/Vol] 2.95 10*6/uL Low 4.6-6.2 [facility] Comment on above: Performed By: #### L 500.2500, L503.6030, L501.9520, L503.6550, L503.0106, L100.0100 ####[facility] [address] [place], [address] RDW SD 47.8 fl High 35.1-43.9 [facility] Comment on above: Performed By: #### L 500.2500, L503.6030, L501.9520, L503.6550, L503.0106, L100.0100 ####[facility] [address] [place], [address] WBC (Bld) [#/Vol] 11.8 10*3/uL High 4.4-11.0 [facility] Comment on above: Performed By: #### L 500.2500, L503.6030, L501.9520, L503.6550, L503.0106, L100.0100 ####[facility] [address] [place], [address] Culture, Blood (WB)on 2024 CUB Blood cultures x2, from two different sites No growth in 48 hours. Normal [facility] Comment on above: Performed By: #### L 300.3900, L100.0100, M200.1000, L500.4050, L503.7505, L300.4310, L503.6005 ####[facility] [address] [place], [address] Erythrocyte folate measureme nt with hematocritOrdered By: Malika Fonseca on 05-08-2025 Hematocrit (Bld) [Volume fraction] 28.6 % Low 37.5-51.0 [facility] Ferritinon 05-08-2025 Ferritin [Mass/Vol] 92 ng/mL Normal 37-417 [facility] Comment on above: Performed By: #### L 500.2500, L503.6030, L501.9520, L503.6550, L503.0106, L100.0100 ####[facility] [address] [place], [address] Iron measurement (mass/mass) Ordered By: Malika Fonseca on 05-08-2025 Iron (Unsp spec) [Mass/Mass] 22 ug/dL Low 65-175 [facility] Iron+Iron Binding Capacityon 05-08-2025 Iron [Mass/Vol] 22 ug/dL Low 65-175 [facility] Comment on above: Performed By: #### L 500.2500, L503.6030, L501.9520, L503.6550, L503.0106, L100.0100 ####[facility] [address] [place], [address] IRON SATURATION 7.0 Low 9-55 [facility] Comment on above: Performed By: #### L 500.2500, L503.6030, L501.9520, L503.6550, L503.0106, L100.0100 ####[facility] [address] [place], [address] TIBC 309 ug/dL Normal 250-450 [facility] Comment on above: Performed By: #### L 500.2500, L503.6030, L501.9520, L503.6550, L503.0106, L100.0100 ####[facility] [address] [place], [address] UIBC 287 ug/dL Normal 228-428 [facility] Comment on above: Performed By: #### L 500.2500, L503.6030, L501.9520, L503.6550, L503.0106, L100.0100 ####[facility] [address] [place], [address] No Panel InformationOrdered By: Malika Fonseca on 05-08-2025 287 ug/dL 228-428 [facility] Prothrombin Time w/INRon INR Normal [facility] Comment on above: Result Comment: Canjonathan elled via OM: MD Ordered Performed By: #### L 300.3900 ####[facility] [address] [place], [address] PROTIME Normal 11.7-14.9 [facility] Comment on above: Result Comment: Ray elloumar via OM: MD Ordered Performed By: #### L 300.3900 ####[facility] [address] [place], [address] Serum or plasma ferritin heriberto surement (mass/volume)Ordered By: Malika Fonseca on 05-08-2025 Ferritin [Mass/Vol] 92 ng/mL 37-417 [facility] Serum or plasma iron saturat ion measurement (mass fraction)Ordered By: Malika Fonseca on 05-08-2025 Iron saturation [Mass fraction] 7.0 % Low 9-55 [facility] TSH DL <= 0.005 mIU/L QnOrde red By: Malika Fonseca on 05-08-2025 TSH Qn 0.979 uIU/mL 0.300-4.200 [facility] Thyroid Stim Hormone (TSH)on 05-08-2025 TSH 0.979 uIU/mL Normal 0.300-4.200 [facility] Comment on above: Performed By: #### L 500.2500, L503.6030, L501.9520, L503.6550, L503.0106, L100.0100 ####[facility] [address] [place], [address] Urine Cultureon 05-08-2025 URC Mixed Gram Positive Organisms [place] Count 25,000-50,000 MIXC Mixed contaminants. Submit a new specimen if indicated. Normal [facility] Comment on above: Performed By: #### M 100.2200, L400.0001 ####[facility] [address] [place], [address] Vitamin B12on 05-08-2025 Cobalamin (Vitamin B12) [Mass/Vol] 670 pg/mL Normal 180-914 [facility] Comment on above: Performed By: #### L 500.2500, L503.6030, L501.9520, L503.6550, L503.0106, L100.0100 ####[facility] [address] [place], [address] Vitamin B12 ser/plasOrdered By: Malika Fonseca on 05-08-2025 Cobalamin (Vitamin B12) [Mass/Vol] 670 pg/mL 180-914 [facility] Bedside Glucoseon 05-07-2025 FINGERSTICK GLU 344 mg/dL High 74-106 [facility] Comment on above: Result Comment: ADITI GEMENT OF PATIENT CARE PER NURSING PROTOCOL Performed By: #### L 501.080 ####[facility] [address] [place], [address] FINGERSTICK GLU 342 mg/dL High 74-106 [facility] Comment on above: Result Comment: ADITI GEMENT OF PATIENT CARE PER NURSING PROTOCOL Performed By: #### L 501.080 ####[facility] [address] [place], [address] FINGERSTICK GLU 315 mg/dL High 74-106 [facility] Comment on above: Result Comment: ADITI GEMENT OF PATIENT CARE PER NURSING PROTOCOL Performed By: #### L 501.080 ####[facility] [address] [place], [address] FINGERSTICK GLU 333 mg/dL High 74-106 [facility] Comment on above: Result Comment: ADITI GEMENT OF PATIENT CARE PER NURSING PROTOCOL Performed By: #### L 501.080 ####[facility] [address] [place], [address] Bilirubin, totalOrdered By: Carlita Raygoza on 05-07-2025 Bilirubin [Mass/Vol] 0.46 mg/dL 0.00-1.30 [facility] CBC W/Diff, Automatedon Absolute Lymph 1.13 X10 3/uL Normal 0.83-4.51 [facility] Comment on above: Performed By: #### L 300.3900, L100.0100 ####[facility] [address] [place], [address] Absolute Neut 6.9 X10 3/uL Normal 2.0-7.7 [facility] Comment on above: Performed By: #### L 300.3900, L100.0100 ####[facility] [address] [place], [address] Basophils/100 WBC (Bld) 0.2 % Normal 0-1 [facility] Comment on above: Performed By: #### L 300.3900, L100.0100 ####[facility] [address] [place], [address] Eosinophils/100 WBC (Bld) 0.0 % Normal 0-5 [facility] Comment on above: Performed By: #### L 300.3900, L100.0100 ####[facility] [address] [place], [address] Erythrocyte distribution width (RBC) [Ratio] 14.5 % Normal 11.6-14.6 [facility] Comment on above: Performed By: #### L 300.3900, L100.0100 ####[facility] [address] [place], [address] Hematocrit (Bld) [Volume fraction] 22.4 % Low 40-54 [facility] Comment on above: Performed By: #### L 300.3900, L100.0100 ####[facility] [address] [place], [address] Hemoglobin (Bld) [Mass/Vol] 7.2 g/dL Low 13.0-16.5 [facility] Comment on above: Performed By: #### L 300.3900, L100.0100 ####[facility] [address] [place], [address] IG% 0.700 Normal 0.0-0.9 [facility] Comment on above: Result Comment: IG% - Immature Granulocytes (promyelocytes, myelocytes andmetamyelocytes) > 1% indicates that a LEFT SHIFT is Present. Performed By: #### L 300.3900, L100.0100 ####[facility] [address] [place], [address] Lymphocytes/100 WBC (Bld) 13.1 % Low 19-41 [facility] Comment on above: Performed By: #### L 300.3900, L100.0100 ####[facility] [address] [place], [address] MCH (RBC) [Entitic mass] 29.6 pg Normal 27.0-32.0 [facility] Comment on above: Performed By: #### L 300.3900, L100.0100 ####[facility] [address] [place], [address] MCHC (RBC) [Mass/Vol] 32.1 g/dL Normal 32-36 [facility] Comment on above: Performed By: #### L 300.3900, L100.0100 ####[facility] [address] [place], [address] MCV (RBC) [Entitic vol] 92.2 fL Normal 80-94 [facility] Comment on above: Performed By: #### L 300.3900, L100.0100 ####[facility] [address] [place], [address] Monocytes/100 WBC (Bld) 6.5 % Normal 0-10 [facility] Comment on above: Performed By: #### L 300.3900, L100.0100 ####[facility] [address] [place], [address] Neutrophils/100 WBC (Bld) 79.5 % High 47-70 [facility] Comment on above: Performed By: #### L 300.3900, L100.0100 ####[facility] [address], [address] Nucleated RBC (Bld) [#/Vol] 0 10*3/uL Normal 0-5 [facility] Comment on above: Performed By: #### L 300.3900, L100.0100 ####[facility] [address] [place], [address] Platelet mean volume (Bld) [Entitic vol] 11.4 fL Normal 6.2-12.0 [facility] Comment on above: Performed By: #### L 300.3900, L100.0100 ####[facility] [address] [place], [address] Platelets (Bld) [#/Vol] 154 10*3/uL Normal 150-450 [facility] Comment on above: Performed By: #### L 300.3900, L100.0100 ####[facility] [address] [place], [address] RBC (Bld) [#/Vol] 2.43 10*6/uL Low 4.6-6.2 [facility] Comment on above: Performed By: #### L 300.3900, L100.0100 ####[facility] [address] [place], [address] RDW SD 48.5 fl High 35.1-43.9 [facility] Comment on above: Performed By: #### L 300.3900, L100.0100 ####[facility] [address] [place], [address] WBC (Bld) [#/Vol] 8.6 10*3/uL Normal 4.4-11.0 [facility] Comment on above: Performed By: #### L 300.3900, L100.0100 ####[facility] [address] [place], [address] [facility] Albumin [Mass/Vol] 3.2 g/dL Low 3.4-4.8 [facility] Comment on above: Performed By: #### L 500.4050, L501.2300, L501.5200 ####[facility] [address] [place], [address] Albumin/Globulin [Mass ratio] 1.6 {ratio} Normal 0.9-2.4 [facility] Comment on above: Performed By: #### L 500.4050, L501.2300, L501.5200 ####[facility] [address] [place], [address] ALK PHOS 67 U/L Normal 40-129 [facility] Comment on above: Performed By: #### L 500.4050, L501.2300, L501.5200 ####[facility] [address] [place], [address] ALT [Catalytic activity/Vol] 35 U/L Normal <=46 [facility] Comment on above: Performed By: #### L 500.4050, L501.2300, L501.5200 ####[facility] [address] [place], [address] AST [Catalytic activity/Vol] 34 U/L Normal <=37 [facility] Comment on above: Performed By: #### L 500.4050, L501.2300, L501.5200 ####[facility] [address] [place], [address] Bilirubin [Mass/Vol] 0.46 mg/dL Normal 0.00-1.30 [facility] Comment on above: Performed By: #### L 500.4050, L501.2300, L501.5200 ####[facility] [address] [place], [address] BUN/CRE 30.4 RATIO High 10-20 [facility] [facility] Comment on above: Performed By: #### L 500.4050, L501.2300, L501.5200 ####[facility] [address] [place], [address] Calcium [Mass/Vol] 8.0 mg/dL Normal 7.6-11.0 [facility] Comment on above: Performed By: #### L 500.4050, L501.2300, L501.5200 ####[facility] [address] [place], [address] Chloride [Moles/Vol] 100 mmol/L Normal 98-108 [facility] Comment on above: Performed By: #### L 500.4050, L501.2300, L501.5200 ####[facility] [address] [place], [address] CO2 [Moles/Vol] 22.9 mmol/L Normal 21.0-32.0 [facility] Comment on above: Performed By: #### L 500.4050, L501.2300, L501.5200 ####[facility] [address] [place], [address] Creatinine [Mass/Vol] 3.03 mg/dL High 0.70-1.20 [facility] Comment on above: Performed By: #### L 500.4050, L501.2300, L501.5200 ####[facility] [address] [place], [address] ECRCL 17.88 ml/min Low 50-250 [facility] Comment on above: Performed By: #### L 500.4050, L501.2300, L501.5200 ####[facility] [address] [place], [address] GAP 14 Normal 5-15 [facility] Comment on above: Performed By: #### L 500.4050, L501.2300, L501.5200 ####[facility] [address] [place], [address] GFR/1.73 sq M.predicted among non-blacks MDRD (S/P/Bld) [Vol rate/Area] 20 mL/min/{1.73_m2} Low >60 [place] Comment on above: Result Comment: mL/m in/1.73m2 CKD-EPI Creatinine Equation (2020) Performed By: #### L 500.4050, L501.2300, L501.5200 ####[facility] [address] [place], [address] Globulin (S) [Mass/Vol] 2.0 g/dL Low 2.2-4.2 [facility] Comment on above: Performed By: #### L 500.4050, L501.2300, L501.5200 ####[facility] [address] [place], [address] Glucose [Mass/Vol] 407 mg/dL High 70-99 [facility] Comment on above: Performed By: #### L 500.4050, L501.2300, L501.5200 ####[facility] [address] [place], [address] Potassium [Moles/Vol] 5.0 mmol/L Normal 3.3-5.1 [facility] Comment on above: Performed By: #### L 500.4050, L501.2300, L501.5200 ####[facility] [address] [place], [address] Sodium [Moles/Vol] 136 mmol/L Normal 133-145 [facility] Comment on above: Performed By: #### L 500.4050, L501.2300, L501.5200 ####[facility] [address] [place], [address] T PROT 5.2 g/dL Low 5.9-8.4 [facility] Comment on above: Performed By: #### L 500.4050, L501.2300, L501.5200 ####[facility] [address] [place], [address] Urea nitrogen [Mass/Vol] 92 mg/dL High 4-19 [facility] Comment on above: Performed By: #### L 500.4050, L501.2300, L501.5200 ####[facility] [address] [place], [address] Electrocardiogram reportOrde red By: Bernardo Davis on 05-07-2025 EKG study [facility] Other Phone: Magnesiumon 05-07-2025 Magnesium [Mass/Vol] 2.6 mg/dL High 1.5-2.2 [facility] Comment on above: Performed By: #### L 500.4050, L501.2300, L501.5200 ####[facility] [address] [place], [address] Magnesium measurement (mass/ volume)Ordered By: Carlita Raygoza on 05-07-2025 Magnesium (Unsp spec) [Mass/Vol] 2.6 mg/dL High 1.5-2.2 [facility] No Panel InformationOrdered By: Carlita Raygoza on 05-07-2025 34 U/L <38 [facility] Phosphoruson 05-07-2025 Phosphate [Mass/Vol] 6.1 mg/dL High 2.7-4.5 [facility] Comment on above: Performed By: #### L 500.4050, L501.2300, L501.5200 ####[facility] [address] [place], [address] Prothrombin Time w/INRon INR Coag (PPP) [Relative time] 1.1 {INR} Normal [facility] Comment on above: Performed By: #### L 300.3900, L100.0100 ####[facility] [address] [place], [address] PT Coag (PPP) [Time] 14.9 s Normal 11.7-14.9 [facility] Comment on above: Performed By: #### L 300.3900, L100.0100 ####[facility] [address] [place], [address] Prothrombin timeOrdered By: Carlita Raygoza on 05-07-2025 PT Coag (PPP) [Time] 14.9 s 11.7-14.9 [facility] Serum globulin measurementOr dered By: Carlita Raygoza on 05-07-2025 Globulin (S) [Mass/Vol] 2.0 g/dL Low 2.2-4.2 [facility] Serum or plasma alanine clayton otransferase (ALT) measurementOrdered By: Carlita Raygoza on 05-07-2025 ALT [Catalytic activity/Vol] 35 U/L <47 [facility] Serum or plasma albumin nikkie urement (mass/volume)Ordered By: Carlita Raygoza on 05-07-2025 Albumin [Mass/Vol] 3.2 g/dL Low 3.4-4.8 [facility] Serum or plasma albumin/glob ulin mass ratioOrdered By: Carlita Raygoza on 05-07-2025 Albumin/Globulin [Mass ratio] 1.6 {ratio} 0.9-2.4 [facility] Serum or plasma alkaline dwight sphatase measurementOrdered By: Carlita Raygoza on 05-07-2025 ALP [Catalytic activity/Vol] 67 U/L 40-129 [facility] Total proteinOrdered By: Trixie Raygoza on 05-07-2025 Protein [Mass/Vol] 5.2 g/dL Low 5.9-8.4 [facility] Assessment of wrist artery p atency prior to arterial punctureOrdered By: Carlita Raygoza on 05-06-2025 Arterial patency Wrist artery --pre arterial puncture Positive [facility] Bedside Glucoseon 05-06-2025 FINGERSTICK GLU 444 mg/dL High 74-106 [facility] Comment on above: Result Comment: ADITI GEMENT OF PATIENT CARE PER NURSING PROTOCOL Performed By: #### L 501.080 ####[facility] [address] [place], [address] FINGERSTICK GLU 421 mg/dL High [address] [facility] Comment on above: Result Comment: ADITI GEMENT OF PATIENT CARE PER NURSING PROTOCOL Performed By: #### L 501.080 ####[facility] [address] [place], [address] FINGERSTICK GLU 256 mg/dL High 74-106 [facility] Comment on above: Result Comment: ADITI GEMENT OF PATIENT CARE PER NURSING PROTOCOL Performed By: #### L 501.080 ####[facility] [address] [place], [address] FINGERSTICK GLU 204 mg/dL High [address] [place] [address] Comment on above: Result Comment: ADITI GEMENT OF PATIENT CARE PER NURSING PROTOCOL Performed By: #### L 501.080 ####[facility] [address] [place], [address] Blood Gases by CPSon 025 FILI TEST Positive Normal [facility] Comment on above: Performed By: #### L 9000.0800 ####[facility] [address] [place], [address] Base excess Calc (Bld) [Moles/Vol] 4 mmol/L High -2 to +2 [facility] Comment on above: Performed By: #### L 9000.0800 ####[facility] [address] [place], [address] Blood Gas Type ART Normal [facility] Comment on above: Performed By: #### L 9000.0800 ####[facility] [address] [place], [address] CO2 [Moles/Vol] 29 mmol/L Normal [facility] Comment on above: Performed By: #### L 9000.0800 ####[facility] [address] [place], [address] Comment 10/08 Normal [facility] Comment on above: Performed By: #### L 9000.0800 ####[facility] [address] [place], [address] FI02 30.0 Normal [facility] Comment on above: Performed By: #### L 9000.0800 ####[facility] [address] [place], [address] HCO3 (Bld) [Moles/Vol] 27.5 mmol/L High 22-26 [facility] Comment on above: Performed By: #### L 9000.0800 ####[facility] [address] [place], [address] Normal [facility] Comment on above: Performed By: #### L 9000.0800 ####[facility] [address] [place], [address] O2 Delivery Dev BiPAP Normal [facility] Comment on above: Performed By: #### L 9000.0800 ####[facility] [address] [place], [address] pCO2 34.9 mmHg Low 35-45 [facility] Comment on above: Performed By: #### L 9000.0800 ####[facility] [address] [place], [address] PEEP 8 Normal [facility] Comment on above: Performed By: #### L 9000.0800 ####[facility] [address] [place], [address] pH (Bld) 7.51 [pH] High 7.35-7.45 [facility] Comment on above: Performed By: #### L 9000.0800 ####[facility] [address] [place], [address] PO2 95 mmHG Normal 75-100 [facility] Comment on above: Performed By: #### L 9000.0800 ####[facility] [address] [place], [address] RR 12 Normal [facility] Comment on above: Performed By: #### L 9000.0800 ####[facility] [address] [place], [address] SITE R Radial Normal [facility] Comment on above: Performed By: #### L 9000.0800 ####[facility] [address] [place], [address] SO2 98 Normal 95-99 [facility] Comment on above: Performed By: #### L 9000.0800 ####[facility] [address] [place], [address] FILI TEST Positive Normal [facility] Comment on above: Performed By: #### L 9000.0800 ####[facility] [address] [place], [address] Base excess Calc (Bld) [Moles/Vol] 4 mmol/L High -2 to +2 [facility] Comment on above: Performed By: #### L 9000.0800 ####[facility] [address] [place], [address] Blood Gas Type ART Normal [facility] Comment on above: Performed By: #### L 9000.0800 ####[facility] [address] [place], [address] CO2 [Moles/Vol] 29 mmol/L Normal [facility] Comment on above: Performed By: #### L 9000.0800 ####[facility] [address] [place], [address] Comment 14 8 Normal [facility] Comment on above: Performed By: #### L 9000.0800 ####[facility] [address] [place], [address] FI02 50.0 Normal [facility] Comment on above: Performed By: #### L 9000.0800 ####[facility] [address] [place], [address] HCO3 (Bld) [Moles/Vol] 27.7 mmol/L High 22-26 [facility] Comment on above: Performed By: #### L 9000.0800 ####[facility] [address] [place], [address] Mode Not entered Normal [facility] Comment on above: Performed By: #### L 9000.0800 ####[facility] [address] [place], [address] O2 Delivery Dev BiPAP Normal [facility] Comment on above: Performed By: #### L 9000.0800 ####[facility] [address] [place], [address] pCO2 41.3 mmHg Normal 35-45 [facility] Comment on above: Performed By: #### L 9000.0800 ####[facility] [address] [place], [address] PEEP 8 Normal [facility] Comment on above: Performed By: #### L 9000.0800 ####[facility] [address] [place], [address] pH (Bld) 7.44 [pH] Normal 7.35-7.45 [facility] Comment on above: Performed By: #### L 9000.0800 ####[facility] [address] [place], [address] PO2 73 mmHG Low 75-100 [facility] Comment on above: Performed By: #### L 9000.0800 ####[facility] [address] [place], [address] RR 12 Normal [facility] Comment on above: Performed By: #### L 9000.0800 ####[facility] [address] [place], [address] SITE L Radial Normal [facility] Comment on above: Performed By: #### L 9000.0800 ####[facility] [address] [place], [address] SO2 95 Normal 95-99 [facility] Comment on above: Performed By: #### L 9000.0800 ####[facility] [address] [place], [address] Blood base excess determinat ionOrdered By: Carlita Raygoza on 05-06-2025 Base excess Calc (BldV) [Moles/Vol] 4 mmol/L High -2-2 [facility] Blood bicarbonate measuremen tOrdered By: Carlita Raygoza on 05-06-2025 HCO3 (Bld) [Moles/Vol] 27.5 mmol/L High 22-26 [facility] CBC W/Diff, Automatedon 07-0 Absolute Lymph 0.42 X10 3/uL Low 0.83-4.51 [facility] Comment on above: Performed By: #### L 500.4050, L501.2300, L503.7505, L100.0100 ####[facility] [address] [place], [address] Absolute Neut 11.6 X10 3/uL High 2.0-7.7 [facility] Comment on above: Performed By: #### L 500.4050, L501.2300, L503.7505, L100.0100 ####[facility] [address] [place], [address] Basophils/100 WBC (Bld) 0.1 % Normal 0-1 [facility] Comment on above: Performed By: #### L 500.4050, L501.2300, L503.7505, L100.0100 ####[facility] [address] [place], [address] Eosinophils/100 WBC (Bld) 0.0 % Normal 0-5 [facility] Comment on above: Performed By: #### L 500.4050, L501.2300, L503.7505, L100.0100 ####[facility] [address] [place], [address] Erythrocyte distribution width (RBC) [Ratio] 14.2 % Normal 11.6-14.6 [facility] Comment on above: Performed By: #### L 500.4050, L501.2300, L503.7505, L100.0100 ####[facility] [address] [place], [address] Hematocrit (Bld) [Volume fraction] 25.8 % Low 40-54 [facility] Comment on above: Performed By: #### L 500.4050, L501.2300, L503.7505, L100.0100 ####[facility] [address] [place], [address] Hemoglobin (Bld) [Mass/Vol] 8.2 g/dL Low 13.0-16.5 [facility] Comment on above: Performed By: #### L 500.4050, L501.2300, L503.7505, L100.0100 ####[facility] [address] [place], [address] IG% 0.500 Normal 0.0-0.9 [facility] Comment on above: Result Comment: IG% - Immature Granulocytes (promyelocytes, myelocytes andmetamyelocytes) > 1% indicates that a LEFT SHIFT is Present. Performed By: #### L 500.4050, L501.2300, L503.7505, L100.0100 ####[facility] [address] [place], [address] Lymphocytes/100 WBC (Bld) 3.4 % Low 19-41 [facility] Comment on above: Performed By: #### L 500.4050, L501.2300, L503.7505, L100.0100 ####[facility] [address] [place], [address] MCH (RBC) [Entitic mass] 29.5 pg Normal 27.0-32.0 [facility] Comment on above: Performed By: #### L 500.4050, L501.2300, L503.7505, L100.0100 ####[facility] [address] [place], [address] MCHC (RBC) [Mass/Vol] 31.8 g/dL Low 32-36 [facility] Comment on above: Performed By: #### L 500.4050, L501.2300, L503.7505, L100.0100 ####[facility] [address] [place], [address] MCV (RBC) [Entitic vol] 92.8 fL Normal 80-94 [facility] Comment on above: Performed By: #### L 500.4050, L501.2300, L503.7505, L100.0100 ####[facility] [address] [place], [address] Monocytes/100 WBC (Bld) 1.7 % Normal 0-10 [facility] Comment on above: Performed By: #### L 500.4050, L501.2300, L503.7505, L100.0100 ####[facility] [address] [place], [address] Neutrophils/100 WBC (Bld) 94.3 % High 47-70 [facility] Comment on above: Performed By: #### L 500.4050, L501.2300, L503.7505, L100.0100 ####[facility] [address] [place], [address] Nucleated RBC (Bld) [#/Vol] 0 10*3/uL Normal 0-5 [facility] Comment on above: Performed By: #### L 500.4050, L501.2300, L503.7505, L100.0100 ####[facility] [address] [place], [address] Platelet mean volume (Bld) [Entitic vol] 10.9 fL Normal 6.2-12.0 [facility] Comment on above: Performed By: #### L 500.4050, L501.2300, L503.7505, L100.0100 ####[facility] [address] [place], [address] Platelets (Bld) [#/Vol] 178 10*3/uL Normal 150-450 [facility] Comment on above: Performed By: #### L 500.4050, L501.2300, L503.7505, L100.0100 ####[facility] [address] [place], [address] RBC (Bld) [#/Vol] 2.78 10*6/uL Low 4.6-6.2 [facility] Comment on above: Performed By: #### L 500.4050, L501.2300, L503.7505, L100.0100 ####[facility] [address] [place], [address] RDW SD 48.0 fl High 35.1-43.9 [facility] Comment on above: Performed By: #### L 500.4050, L501.2300, L503.7505, L100.0100 ####[facility] [address] [place], [address] WBC (Bld) [#/Vol] 12.3 10*3/uL High 4.4-11.0 [facility] Comment on above: Performed By: #### L 500.4050, L501.2300, L503.7505, L100.0100 ####[facility] [address] [place], [address] Comprehensive Metabolic Prof [facility] 05-06-2025 Albumin [Mass/Vol] 3.3 g/dL Low 3.4-4.8 [facility] Comment on above: Performed By: #### L 500.4050, L501.2300, L503.7505, L100.0100 ####[facility] [address] [place], [address] Albumin/Globulin [Mass ratio] 1.4 {ratio} Normal 0.9-2.4 [facility] Comment on above: Performed By: #### L 500.4050, L501.2300, L503.7505, L100.0100 ####[facility] [address] [place], [address] ALK PHOS 72 U/L Normal 40-129 [facility] Comment on above: Performed By: #### L 500.4050, L501.2300, L503.7505, L100.0100 ####[facility] [address] [place], [address] ALT [Catalytic activity/Vol] 38 U/L Normal <=46 [facility] Comment on above: Performed By: #### L 500.4050, L501.2300, L503.7505, L100.0100 ####[facility] [address] [place], [address] AST [Catalytic activity/Vol] 31 U/L Normal <=37 [facility] Comment on above: Performed By: #### L 500.4050, L501.2300, L503.7505, L100.0100 ####[facility] [address] [place], [address] Bilirubin [Mass/Vol] 0.34 mg/dL Normal 0.00-1.30 [facility] Comment on above: Performed By: #### L 500.4050, L501.2300, L503.7505, L100.0100 ####[facility] [address] [place], [address] BUN/CRE 30.3 RATIO High 10-20 [facility] Comment on above: Performed By: #### L 500.4050, L501.2300, L503.7505, L100.0100 ####[facility] [address] [place], [address] Calcium [Mass/Vol] 8.3 mg/dL Normal 7.6-11.0 [facility] Comment on above: Performed By: #### L 500.4050, L501.2300, L503.7505, L100.0100 ####[facility] [address] [place], [address] Chloride [Moles/Vol] 104 mmol/L Normal 98-108 [facility] Comment on above: Performed By: #### L 500.4050, L501.2300, L503.7505, L100.0100 ####[facility] [address] [place], [address] CO2 [Moles/Vol] 22.7 mmol/L Normal 21.0-32.0 [facility] Comment on above: Performed By: #### L 500.4050, L501.2300, L503.7505, L100.0100 ####[facility] [address] [place], [address] Creatinine [Mass/Vol] 2.46 mg/dL High 0.70-1.20 [facility] Comment on above: Performed By: #### L 500.4050, L501.2300, L503.7505, L100.0100 ####[facility] [address] [place], [address] ECRCL 21.95 ml/min Low 50-250 [facility] Comment on above: Performed By: #### L 500.4050, L501.2300, L503.7505, L100.0100 ####[facility] [address] [place], [address] GAP 16 High 5-15 [facility] Comment on above: Performed By: #### L 500.4050, L501.2300, L503.7505, L100.0100 ####[facility] [address] [place], [address] GFR/1.73 sq M.predicted among non-blacks MDRD (S/P/Bld) [Vol rate/Area] 26 mL/min/{1.73_m2} Low >60 [place] Comment on above: Result Comment: mL/m in/1.73m2 CKD-EPI Creatinine Equation (2020) Performed By: #### L 500.4050, L501.2300, L503.7505, L100.0100 ####[facility] [address] [place], [address] Globulin (S) [Mass/Vol] 2.4 g/dL Normal 2.2-4.2 [facility] Comment on above: Performed By: #### L 500.4050, L501.2300, L503.7505, L100.0100 ####[facility] [address], [address] Glucose [Mass/Vol] 189 mg/dL High 70-99 [facility] Comment on above: Performed By: #### L 500.4050, L501.2300, L503.7505, L100.0100 ####[facility] [address] [place], [address] Potassium [Moles/Vol] 4.0 mmol/L Normal 3.3-5.1 [facility] Comment on above: Performed By: #### L 500.4050, L501.2300, L503.7505, L100.0100 ####[facility] [address], [address] Sodium [Moles/Vol] 143 mmol/L Normal 133-145 [facility] Comment on above: Performed By: #### L 500.4050, L501.2300, L503.7505, L100.0100 ####[facility] [address], [address] T PROT 5.7 g/dL Low 5.9-8.4 [facility] Comment on above: Performed By: #### L 500.4050, L501.2300, L503.7505, L100.0100 ####[facility] [address], [address] Urea nitrogen [Mass/Vol] 75 mg/dL High 4-19 [facility] Comment on above: Performed By: #### L 500.4050, L501.2300, L503.7505, L100.0100 ####[facility] [address] [place], [address] L499.0043on 05-06-2025 Trop T High Sen 141 ng/L Invalid Interpretation Code <=22 [facility] Comment on above: Result Comment: Crit ical Result(s) Called at:0030 by: DASIA MOYA TO CHACHA??Results read back by same. Performed By: #### L 499.0043 ####[facility] [address] [place], [address] L503.7505on 05-06-2025 Natriuretic peptide B (Bld) [Mass/Vol] 75864 pg/mL High <=1800 [facility] Comment on above: Result Comment: Hear t Failure Unlikely: < 300 pg/mLHeart Failure Likely< 50 Years: > 450 pg/mL50-75 Years: > 900 pg/mL>75 Years: > 1800 pg/mL Performed By: #### L 500.4050, L501.2300, L503.7505, L100.0100 ####[facility] [address] [place], [address] Lactic Acidon 05-06-2025 Lactate [Moles/Vol] mmol/L Normal 0.0-2.0 [facility] Comment on above: Performed By: #### L 503.6005 ####[facility] [address] [place], [address] Legionella Antigen Urineon 0 05-06-2025 LEGU Normal [facility] Comment on above: Performed By: #### M 300.4500, M300.4600 ####[facility] [address] [place], [address] M100.019on 05-06-2025 M100.019 Negative Normal [facility] Comment on above: Performed By: #### M 100.019 ####[facility] [address] [place], [address] Measurement, pHOrdered By: Deven Raygoza on 05-06-2025 pH (Unsp spec) 7.51 [pH] High 7.35-7.45 [facility] Natriuretic peptide.B prohor katja N-Terminal [Mass/volume] in Serum or PlasmaOrdered By: Nancy Henson on 05-06-2025 Natriuretic peptide.B prohormone N-Terminal [Mass/Vol] 92602 pg/mL High <1800 [facility] No Panel InformationOrdered By: Carlita Raygoza on 05-06-2025 ART [facility] R Radial [facility] ST [facility] BiPAP [facility] 12 [facility] 8 [facility] 10/08 [facility] Phosphoruson 05-06-2025 Phosphate [Mass/Vol] 5.2 mg/dL High 2.7-4.5 [facility] Comment on above: Performed By: #### L 500.4050, L501.2300, L503.7505, L100.0100 ####[facility] [address] [place], [address] RESPIRATORY PANEL MOLECULARo n 05-06-2025 RP PANEL Normal [facility] Comment on above: Performed By: #### M 100.638 ####[facility] [address] [place], [address] Strep pneumoniae Antig(UR,CS F)on 05-06-2025 STPAG Normal [facility] Comment on above: Performed By: #### M 300.4500, M300.4600 ####[facility] [address] [place], [address] Total carbon dioxide measure mentOrdered By: Carlita Raygoza on 05-06-2025 CO2 [Moles/Vol] 29 mmol/L [facility] 12 Lead EKGon 05-05-2025 12 Lead EKG Normal [facility] Absolute lymphocyte countOrd ered By: Curtis Amor on 05-05-2025 Lymphocytes Auto (Unsp spec) [#/Vol] 1.57 10*3/uL 0.83-4.51 [facility] Activated partial thrombopla stin time (aPTT) in platelet poor plasma by coagulation aOrdered By: Curtis Amor on 05-05-2025 aPTT Coag (PPP) [Time] 29.3 s 24.1-36.2 [place] Anion gap in Serum or Plasma Ordered By: Curtis Amor on 05-05-2025 Anion gap [Moles/Vol] 16 mmol/L High 5-15 [facility] Automated lymphocyte count a s percentage of total leukocytesOrdered By: Curtis Amor on 05-05-2025 Lymphocytes/100 WBC Auto (Unsp spec) 9.3 % Low 19-41 [facility] BUN/creatinine ratioOrdered By: Curtis Amor on 05-05-2025 Urea nitrogen/Creatinine [Mass ratio] 26.2 mg/mg High 10-20 [facility] Basophil percentageOrdered B y: Curtis Amor on 05-05-2025 Basophils/100 WBC (Bld) 0.5 % 0-1 [facility] Bedside Glucoseon 05-05-2025 FINGERSTICK GLU 124 mg/dL High 74-106 [facility] Comment on above: Result Comment: ADITI GEMENT OF PATIENT CARE PER NURSING PROTOCOL Performed By: #### L 501.080 ####[facility] [address] [place], [address] Bilirubin Test strip Ql (U)O rdered By: Curtis Amor on 05-05-2025 Bilirubin Ql (U) Negative Negative [facility] Bilirubin, totalOrdered By: Curtis Amor on 05-05-2025 Bilirubin [Mass/Vol] 0.49 mg/dL 0.00-1.30 [facility] Blood Gases by CPSon 025 FILI TEST Positive Normal [facility] Comment on above: Performed By: #### L 9000.0800 ####[facility] [address] [place], [address] Base excess Calc (Bld) [Moles/Vol] 4 mmol/L High -2 to +2 [facility] Comment on above: Performed By: #### L 9000.0800 ####[facility] [address] [place], [address] Blood Gas Type ART Normal [facility] Comment on above: Performed By: #### L 0.0800 ####[facility] [address] [place], [address] CO2 [Moles/Vol] 29 mmol/L Normal [facility] Comment on above: Performed By: #### L 9000.0800 ####[facility] [address] [place], [address] Comment 14 8 Normal [facility] Comment on above: Performed By: #### L 0.0800 ####[facility] [address] [place], [address] FI02 35.0 Normal [facility] Comment on above: Performed By: #### L 9000.0800 ####[facility] [address] [place], [address] HCO3 (Bld) [Moles/Vol] 28.0 mmol/L High 22-26 [facility] Comment on above: Performed By: #### L 0.0800 ####[facility] [address] [place], [address] Mode Not entered Normal [facility] Comment on above: Performed By: #### L 0.0800 ####[facility] [address] [place], [address] O2 Delivery Dev BiPAP Normal [facility] Comment on above: Performed By: #### L 0.0800 ####[facility] [address] [place], [address] pCO2 38.8 mmHg Normal 35-45 [facility] Comment on above: Performed By: #### L 9000.0800 ####[facility] [address] [place], [address] PEEP 8 Normal [facility] Comment on above: Performed By: #### L 9000.0800 ####[facility] [address] [place], [address] pH (Bld) 7.47 [pH] High 7.35-7.45 [facility] Comment on above: Performed By: #### L 9000.0800 ####[facility] [address] [place], [address] PIP 14 Normal [facility] Comment on above: Performed By: #### L 9000.0800 ####[facility] [address] [place], [address] PO2 78 mmHG Normal 75-100 [facility] Comment on above: Performed By: #### L 9000.0800 ####[facility] [address] [place], [address] SITE L Radial Normal [facility] Comment on above: Performed By: #### L 9000.0800 ####[facility] [address] [place], [address] SO2 96 Normal 95-99 [facility] Comment on above: Performed By: #### L 9000.0800 ####[facility] [address] [place], [address] CBC W/Diff, Automatedon 07-0 5-2025 Absolute Lymph 1.57 X10 3/uL Normal 0.83-4.51 [facility] Comment on above: Performed By: #### L 300.3900, L100.0100, M200.1000, L500.4050, L503.7505, L300.4310, L503.6005 ####[facility] [address] [place], [address] Absolute Neut 13.7 X10 3/uL High 2.0-7.7 [facility] Comment on above: Performed By: #### L 300.3900, L100.0100, M200.1000, L500.4050, L503.7505, L300.4310, L503.6005 ####[facility] [address] [place], [address] Basophils/100 WBC (Bld) 0.5 % Normal 0-1 [facility] Comment on above: Performed By: #### L 300.3900, L100.0100, M200.1000, L500.4050, L503.7505, L300.4310, L503.6005 ####[facility] [address] [place], [address] Eosinophils/100 WBC (Bld) 0.8 % Normal 0-5 [facility] Comment on above: Performed By: #### L 300.3900, L100.0100, M200.1000, L500.4050, L503.7505, L300.4310, L503.6005 ####[facility] [address] [place], [address] Erythrocyte distribution width (RBC) [Ratio] 14.2 % Normal 11.6-14.6 [facility] Comment on above: Performed By: #### L 300.3900, L100.0100, M200.1000, L500.4050, L503.7505, L300.4310, L503.6005 ####[facility] [address] [place], [address] Hematocrit (Bld) [Volume fraction] 30.3 % Low 40-54 [facility] Comment on above: Performed By: #### L 300.3900, L100.0100, M200.1000, L500.4050, L503.7505, L300.4310, L503.6005 ####[facility] [address] [place], [address] Hemoglobin (Bld) [Mass/Vol] 9.1 g/dL Low 13.0-16.5 [facility] Comment on above: Performed By: #### L 300.3900, L100.0100, M200.1000, L500.4050, L503.7505, L300.4310, L503.6005 ####[facility] [address] [place], [address] IG% 0.400 Normal 0.0-0.9 [facility] Comment on above: Result Comment: IG% - Immature Granulocytes (promyelocytes, myelocytes andmetamyelocytes) > 1% indicates that a LEFT SHIFT is Present. Performed By: #### L 300.3900, L100.0100, M200.1000, L500.4050, L503.7505, L300.4310, L503.6005 ####[facility] [address] [place], [address] Lymphocytes/100 WBC (Bld) 9.3 % Low 19-41 [facility] Comment on above: Performed By: #### L 300.3900, L100.0100, M200.1000, L500.4050, L503.7505, L300.4310, L503.6005 ####[facility] [address] [place], [address] MCH (RBC) [Entitic mass] 28.9 pg Normal 27.0-32.0 [facility] Comment on above: Performed By: #### L 300.3900, L100.0100, M200.1000, L500.4050, L503.7505, L300.4310, L503.6005 ####[facility] [address] [place], [address] MCHC (RBC) [Mass/Vol] 30.0 g/dL Low 32-36 [facility] Comment on above: Performed By: #### L 300.3900, L100.0100, M200.1000, L500.4050, L503.7505, L300.4310, L503.6005 ####[facility] [address] [place], [address] MCV (RBC) [Entitic vol] 96.2 fL High 80-94 [facility] Comment on above: Performed By: #### L 300.3900, L100.0100, M200.1000, L500.4050, L503.7505, L300.4310, L503.6005 ####[facility] [address] [place], [address] Monocytes/100 WBC (Bld) 7.2 % Normal 0-10 [facility] Comment on above: Performed By: #### L 300.3900, L100.0100, M200.1000, L500.4050, L503.7505, L300.4310, L503.6005 ####[facility] [address] [place], [address] Neutrophils/100 WBC (Bld) 81.8 % High 47-70 [facility] Comment on above: Performed By: #### L 300.3900, L100.0100, M200.1000, L500.4050, L503.7505, L300.4310, L503.6005 ####[facility] [address] [place], [address] Nucleated RBC (Bld) [#/Vol] 0 10*3/uL Normal 0-5 [facility] Comment on above: Performed By: #### L 300.3900, L100.0100, M200.1000, L500.4050, L503.7505, L300.4310, L503.6005 ####[facility] [address] [place], [address] Platelet mean volume (Bld) [Entitic vol] 10.8 fL Normal 6.2-12.0 [facility] Comment on above: Performed By: #### L 300.3900, L100.0100, M200.1000, L500.4050, L503.7505, L300.4310, L503.6005 ####[facility] [address] [place], [address] Platelets (Bld) [#/Vol] 252 10*3/uL Normal 150-450 [facility] Comment on above: Performed By: #### L 300.3900, L100.0100, M200.1000, L500.4050, L503.7505, L300.4310, L503.6005 ####[facility] [address] [place], [address] RBC (Bld) [#/Vol] 3.15 10*6/uL Low 4.6-6.2 [facility] Comment on above: Performed By: #### L 300.3900, L100.0100, M200.1000, L500.4050, L503.7505, L300.4310, L503.6005 ####[facility] [address] [place], [address] RDW SD 49.4 fl High 35.1-43.9 [facility] Comment on above: Performed By: #### L 300.3900, L100.0100, M200.1000, L500.4050, L503.7505, L300.4310, L503.6005 ####[facility] [address] [place], [address] WBC (Bld) [#/Vol] 16.8 10*3/uL High 4.4-11.0 [facility] Comment on above: Performed By: #### L 300.3900, L100.0100, M200.1000, L500.4050, L503.7505, L300.4310, L503.6005 ####[facility] [address] [place], [address] Carbon dioxide, total [Moles /volume] in Central venous bloodOrdered By: Curtis Amor on 05-05-2025 CO2 [Moles/Vol] 25.2 mmol/L 21.0-32.0 [facility] Chest 1 View (Portable)on Chest 1 View (Portable) Normal [facility] Chloride assayOrdered By: Zoran Amor on 05-05-2025 Chloride [Moles/Vol] 101 mmol/L 98-108 [facility] Comprehensive Metabolic Prof ilon 05-05-2025 Albumin [Mass/Vol] 3.9 g/dL Normal 3.4-4.8 [facility] Comment on above: Performed By: #### L 300.3900, L100.0100, M200.1000, L500.4050, L503.7505, L300.4310, L503.6005 ####[facility] [address] [place], [address] Albumin/Globulin [Mass ratio] 1.5 {ratio} Normal 0.9-2.4 [facility] Comment on above: Performed By: #### L 300.3900, L100.0100, M200.1000, L500.4050, L503.7505, L300.4310, L503.6005 ####[facility] [address] [place], [address] ALK PHOS 93 U/L Normal 40-129 [facility] Comment on above: Performed By: #### L 300.3900, L100.0100, M200.1000, L500.4050, L503.7505, L300.4310, L503.6005 ####[facility] [address] [place], [address] ALT [Catalytic activity/Vol] 44 U/L Normal <=46 [facility] Comment on above: Performed By: #### L 300.3900, L100.0100, M200.1000, L500.4050, L503.7505, L300.4310, L503.6005 ####[facility] [address] [place], [address] AST [Catalytic activity/Vol] 43 U/L High <=37 [facility] Comment on above: Performed By: #### L 300.3900, L100.0100, M200.1000, L500.4050, L503.7505, L300.4310, L503.6005 ####[facility] [address] [place], [address] Bilirubin [Mass/Vol] 0.49 mg/dL Normal 0.00-1.30 [facility] Comment on above: Performed By: #### L 300.3900, L100.0100, M200.1000, L500.4050, L503.7505, L300.4310, L503.6005 ####[facility] [address] [place], [address] BUN/CRE 26.2 RATIO High 10-20 [facility] Comment on above: Performed By: #### L 300.3900, L100.0100, M200.1000, L500.4050, L503.7505, L300.4310, L503.6005 ####[facility] [address] [place], [address] Calcium [Mass/Vol] 8.5 mg/dL Normal 7.6-11.0 [facility] Comment on above: Performed By: #### L 300.3900, L100.0100, M200.1000, L500.4050, L503.7505, L300.4310, L503.6005 ####[facility] [address] [place], [address] Chloride [Moles/Vol] 101 mmol/L Normal 98-108 [facility] Comment on above: Performed By: #### L 300.3900, L100.0100, M200.1000, L500.4050, L503.7505, L300.4310, L503.6005 ####[facility] [address] [place], [address] CO2 [Moles/Vol] 25.2 mmol/L Normal 21.0-32.0 [facility] Comment on above: Performed By: #### L 300.3900, L100.0100, M200.1000, L500.4050, L503.7505, L300.4310, L503.6005 ####[facility] [address] [place], [address] Creatinine [Mass/Vol] 2.72 mg/dL High 0.70-1.20 [facility] Comment on above: Performed By: #### L 300.3900, L100.0100, M200.1000, L500.4050, L503.7505, L300.4310, L503.6005 ####[facility] [address] [place], [address] ECRCL 19.22 ml/min Low 50-250 [facility] Comment on above: Performed By: #### L 300.3900, L100.0100, M200.1000, L500.4050, L503.7505, L300.4310, L503.6005 ####[facility] [address] [place], [address] GAP 16 High 5-15 [facility] Comment on above: Performed By: #### L 300.3900, L100.0100, M200.1000, L500.4050, L503.7505, L300.4310, L503.6005 ####[facility] [address] [place], [address] GFR/1.73 sq M.predicted among non-blacks MDRD (S/P/Bld) [Vol rate/Area] 23 mL/min/{1.73_m2} Low >60 [place] Comment on above: Result Comment: mL/m in/1.73m2 CKD-EPI Creatinine Equation (2020) Performed By: #### L 300.3900, L100.0100, M200.1000, L500.4050, L503.7505, L300.4310, L503.6005 ####[facility] [address] [place], [address] Globulin (S) [Mass/Vol] 2.5 g/dL Normal 2.2-4.2 [facility] Comment on above: Performed By: #### L 300.3900, L100.0100, M200.1000, L500.4050, L503.7505, L300.4310, L503.6005 ####[facility] [address] [place], [address] Glucose [Mass/Vol] 242 mg/dL High 70-99 [facility] Comment on above: Performed By: #### L 300.3900, L100.0100, M200.1000, L500.4050, L503.7505, L300.4310, L503.6005 ####[facility] [address] [place], [address] Potassium [Moles/Vol] 4.5 mmol/L Normal 3.3-5.1 [facility] Comment on above: Performed By: #### L 300.3900, L100.0100, M200.1000, L500.4050, L503.7505, L300.4310, L503.6005 ####[facility] [address] [place], [address] Sodium [Moles/Vol] 142 mmol/L Normal 133-145 [facility] Comment on above: Performed By: #### L 300.3900, L100.0100, M200.1000, L500.4050, L503.7505, L300.4310, L503.6005 ####[facility] [address] [place], [address] T PROT 6.4 g/dL Normal 5.9-8.4 [facility] Comment on above: Performed By: #### L 300.3900, L100.0100, M200.1000, L500.4050, L503.7505, L300.4310, L503.6005 ####[facility] [address] [place], [address] Urea nitrogen [Mass/Vol] 71 mg/dL High 4-19 [facility] Comment on above: Performed By: #### L 300.3900, L100.0100, M200.1000, L500.4050, L503.7505, L300.4310, L503.6005 ####[facility] [address] [place], [address] Emergency Department Summary on 05-05-2025 Emergency Department Summary Normal [facility] Eosinophil percentageOrdered By: Curtis Amor on 05-05-2025 Eosinophils/100 WBC (Bld) 0.8 % 0-5 [facility] Erythrocyte distribution wid th ratioOrdered By: Curtis Amor on 05-05-2025 Erythrocyte distribution width (RBC) [Ratio] 14.2 % 11.6-14.6 [facility] [place] Erythrocyte distribution wid th standard deviationOrdered By: Curtis Amor on 05-05-2025 Erythrocyte distribution width (RBC) [Ratio] 49.4 fl High 35.1-43.9 [facility] [place] Glomerular filtration rate ( GFR) estimation/1.73 sq m using serum, plasma, or whole bOrdered By: Curtis Amor on 05-05-2025 GFR/1.73 sq M.predicted among non-blacks MDRD (S/P/Bld) [Vol rate/Area] 23 mL/min/{1.73_m2} Low >60 [place] H AND P Exam - Hospitaliston 05-05-2025 H&P Exam - Hospitalist Normal [place] Hematocrit Auto (Bld) [Volum e fraction]Ordered By: Curtis Amor on 05-05-2025 Hematocrit (Bld) [Volume fraction] 30.3 % Low 40-54 [facility] [place] Hemoglobin measurementOrdere d By: Curtis Amor on 05-05-2025 Hemoglobin (Bld) [Mass/Vol] 9.1 g/dL Low 13.0-16.5 [facility] [place] Immature granulocytes/100 WB C Auto (Bld)Ordered By: Curtis Amor on 05-05-2025 Immature granulocytes/100 WBC (Bld) 0.400 % 0.0-0.9 [facility] Ketones Test strip Ql (U)Ord ered By: Curtis Amor on 05-05-2025 Ketones Ql (U) Negative Negative [facility] L499.0042on 05-05-2025 Trop T High Sen 113 ng/L Invalid Interpretation Code <=22 [facility] Comment on above: Result Comment: Crit ical Result(s) Called at: 2243 by: JEANNIE BURNHAM??Results read back by same. Performed By: #### L 499.0042 ####[facility] [address] [place], [place], [address] L501.4021on 05-05-2025 Trop T High Sen 115 ng/L Invalid Interpretation Code <=22 [facility] Comment on above: Result Comment: Crit ical Result(s) Called at: 2043 by:??JEANNIE ALBERT Results read back by same. Performed By: #### L 208.4024 ####[facility] [address] [place], [address] L503.7505on 05-05-2025 Natriuretic peptide B (Bld) [Mass/Vol] 95156 pg/mL High <=1800 [facility] Comment on above: Result Comment: Hear t Failure Unlikely: < 300 pg/mLHeart Failure Likely< 50 Years: > 450 pg/mL50-75 Years: > 900 pg/mL>75 Years: > 1800 pg/mL Performed By: #### L 300.3900, L100.0100, M200.1000, L500.4050, L503.7505, L300.4310, L503.6005 ####[facility] [address] [place], [address] Lactic Acidon 05-05-2025 Lactate [Moles/Vol] 1.2 mmol/L Normal 0.0-2.0 [facility] Comment on above: Order Comment: Y Performed By: #### L 501.5200, L503.6005 ####[facility] [address] [place], [place], [id number] Lactate [Moles/Vol] 2.8 mmol/L Invalid Interpretation Code 0.0-2.0 [facility] Comment on above: Order Comment: Y Result Comment: Crit ical Result(s) Called at: 2043 by:??JEANNIE ALBERT Results read back by same. Performed By: #### L 300.3900, L100.0100, M200.1000, L500.4050, L503.7505, L300.4310, L503.6005 ####[facility] [address] [place], [place], [id number] MCV (mean corpuscular volume ) determinationOrdered By: Curtis Amor on 05-05-2025 MCV (RBC) [Entitic vol] 96.2 fL High 80-94 [facility] Magnesiumon 05-05-2025 Magnesium [Mass/Vol] 2.3 mg/dL High 1.5-2.2 [facility] Comment on above: Performed By: #### L 501.5200, L503.6005 ####[facility] [address] [place], [address] Mean corpuscular hemoglobin (MCH) determinationOrdered By: Curtis Amor on 05-05-2025 MCH (RBC) [Entitic mass] 28.9 pg 27.0-32.0 [facility] Monocyte percentageOrdered B y: Curtis Amor on 05-05-2025 Monocytes/100 WBC (Bld) 7.2 % 0-10 [facility] Mucus LM Ql (Urine sed)Order ed By: Curtis Amor on 05-05-2025 Mucus Ql (Urine sed) 0 SEEN /hpf [facility] Natriuretic peptide.B prohor katja N-Terminal [Mass/volume] in Serum or PlasmaOrdered By: Curtis Amor on 05-05-2025 Natriuretic peptide.B prohormone N-Terminal [Mass/Vol] 33198 pg/mL High <1800 [facility] Neutrophil percentageOrdered By: Curtis Amor on 05-05-2025 Neutrophils/100 WBC (Bld) 81.8 % High 47-70 [facility] Nitrite Test strip Ql (U)Ord ered By: Curtis Amor on 05-05-2025 Nitrite Ql (U) Negative Negative [facility] No Panel InformationOrdered By: Nancy Henson on 05-05-2025 14 [facility] No Panel InformationOrdered By: Curtis Amor on 05-05-2025 43 U/L High <38 [facility] Partial Thromboplast Timeon 05-05-2025 aPTT Coag (Bld) [Time] 29.3 s Normal 24.1-36.2 [place] Comment on above: Performed By: #### L 300.3900, L100.0100, M200.1000, L500.4050, L503.7505, L300.4310, L503.6005 ####[facility] [address] [place], [address] Platelet countOrdered By: Zoran Amor on 05-05-2025 Platelets (Bld) [#/Vol] 252 10*3/uL 150-450 [facility] Potassium measurement (mass/ volume)Ordered By: Curtis Amor on 05-05-2025 Potassium (Unsp spec) [Mass/Vol] 4.5 mmol/L 3.3-5.1 [facility] Protein Test strip Ql (U)Ord ered By: Curtis Amor on 05-05-2025 Protein Ql (U) 30 mg/dl High Negative [facility] Prothrombin Time w/INRon INR Coag (PPP) [Relative time] 1.0 {INR} Normal [facility] Comment on above: Performed By: #### L 300.3900, L100.0100, M200.1000, L500.4050, L503.7505, L300.4310, L503.6005 ####[facility] [address] [place], [place], [id number] PT Coag (PPP) [Time] 13.1 s Normal 11.7-14.9 [facility] Comment on above: Performed By: #### L 300.3900, L100.0100, M200.1000, L500.4050, L503.7505, L300.4310, L503.6005 ####[facility] [address] [place], [place], [phone] Prothrombin timeOrdered By: Curtis Amor on 05-05-2025 PT Coag (PPP) [Time] 13.1 s 11.7-14.9 [facility] RBC Auto (Bld) [#/Vol]Ordere d By: Curtis Amor on 05-05-2025 RBC (Bld) [#/Vol] 3.15 10*6/uL Low 4.6-6.2 [facility] Respiratory pathogens detect ion panel by molecular detection methodOrdered By: Nancy Henson on 05-05-2025 Respiratory pathogens DNA and RNA panel ALICE+probe (Resp) [facility] Ekrn-rmz-5Yfcmvon By: Nancy Henson on 05-05-2025 SARS-CoV-2 (COVID-19) RNA ALICE+probe Ql (Unsp spec) [facility] Serum creatinine measurement (mass/volume)Ordered By: Curtis Amor on 05-05-2025 Creatinine [Mass/Vol] 2.72 mg/dL High 0.70-1.20 [facility] Serum globulin measurementOr dered By: Curtis Amor on 05-05-2025 Globulin (S) [Mass/Vol] 2.5 g/dL 2.2-4.2 [facility] Serum glucose measurement (m ass/volume)Ordered By: Curtis Amor on 05-05-2025 Glucose [Mass/Vol] 242 mg/dL High 70-99 [facility] Serum or plasma alanine clayton otransferase (ALT) measurementOrdered By: Curtis Amor on 05-05-2025 ALT [Catalytic activity/Vol] 44 U/L <47 [facility] Serum or plasma albumin nikkie urement (mass/volume)Ordered By: Curtis Amor on 05-05-2025 Albumin [Mass/Vol] 3.9 g/dL 3.4-4.8 [facility] Serum or plasma albumin/glob ulin mass ratioOrdered By: Curtis Amor on 05-05-2025 Albumin/Globulin [Mass ratio] 1.5 {ratio} 0.9-2.4 [facility] Serum or plasma alkaline dwight sphatase measurementOrdered By: Curtis Amor on 05-05-2025 ALP [Catalytic activity/Vol] 93 U/L 40-129 [facility] Serum or plasma calcium nikkie urement (mass/volume)Ordered By: Curtis Amor on 05-05-2025 Calcium [Mass/Vol] 8.5 mg/dL 7.6-11.0 [facility] Serum or plasma urea nitroge n measurement (mass/volume)Ordered By: Curtis Amor on 05-05-2025 Urea nitrogen [Mass/Vol] 71 mg/dL High 4-19 [facility] Sodium levelOrdered By: Amina Amor on 05-05-2025 Sodium [Moles/Vol] 142 mmol/L 133-145 [facility] Squamous epithelial cells de tection in urine sediment by light microscopyOrdered By: Curtis Amor on 05-05-2025 Epithelial cells.squamous LM Ql (Urine sed) 0 SEEN /hpf 0-5 [facility] Total proteinOrdered By: Shaun Amor on 05-05-2025 Protein [Mass/Vol] 6.4 g/dL 5.9-8.4 [facility] Troponin T.cardiac [Mass/vol ume] in Serum or Plasma by High sensitivity methodOrdered By: Curtis Amor on 05-05-2025 Troponin T.cardiac High sensitivity method [Mass/Vol] 141 ng/L High <22 [facility] Troponin T.cardiac High sensitivity method [Mass/Vol] 113 ng/L High <22 [facility] Troponin T.cardiac High sensitivity method [Mass/Vol] 115 ng/L High <22 [facility] Urinalysis, Completeon 05-05 BACTERIA RARE Normal None Seen [facility] Comment on above: Order Comment: [facility] CTOR TO SPECIFY Performed By: #### M 100.2200, L400.0001 ####[facility] [address] [place], [address] WBC 0-5 SEEN Normal 0-5 [facility] Comment on above: Order Comment: [facility] CTOR TO SPECIFY Performed By: #### M 100.2200, L400.0001 ####[facility] [address] [place], [address] EPI,SQUAMOUS 0 SEEN Normal 0-5 [facility] Comment on above: Order Comment: [facility] CTOR TO SPECIFY Performed By: #### M 100.2200, L400.0001 ####[facility] [address] [place], [address] Mucus Ql (Urine sed) 0 SEEN Normal [facility] Comment on above: Order Comment: [facility] CTOR TO SPECIFY Performed By: #### M 100.2200, L400.0001 ####[facility] [address] [place], [address] RBC 0 SEEN Normal 0-5 [facility] Comment on above: Order Comment: [facility] CTOR TO SPECIFY Performed By: #### M 100.2200, L400.0001 ####[facility] [address] [place], [address] Urine Legionella pneumophila antigen detectionOrdered By: Nancy Henson on 05-05-2025 L. pneumophila Ag Ql (U) [facility] Urine clarityOrdered By: Shaun Amor on 05-05-2025 Clarity (U) Clear Clear [facility] Urine color determinationOrd ered By: Curtis Amor on 05-05-2025 Color (U) Yellow Yellow [facility] Urine cultureOrdered By: Shaun Amor on 05-05-2025 Bacteria identified Cx Nom (U) Positive Abnormal [facility] Urine glucose detectionOrder ed By: Curtis Amor on 05-05-2025 Glucose Ql (U) Normal mg/dl Normal [facility] Urine leukocyte esterase det ection by dipstickOrdered By: Curtis Amor on 05-05-2025 Leukocyte esterase Test strip Ql (U) 25 /ul High Negative [facility] Urine pHOrdered By: Curtis matt on 05-05-2025 pH (U) 6.0 [pH] 5.0 - 8.0 [facility] Urine sediment bacteria coun t by microscopy (number/high power field)Ordered By: Curtis Amor on 05-05-2025 Bacteria LM.HPF (Urine sed) [#/Area] RARE /hpf None Seen [facility] Urine specific gravity measu rementOrdered By: Curtis Amor on 05-05-2025 Specific gravity (U) [Rel density] 1.015 1.002-1.030 [facility] Urine urobilinogen measureme ntOrdered By: Curtis Amor on 05-05-2025 Urobilinogen Ql (U) Normal mg/dl Normal [facility] White blood cell (WBC) count Ordered By: Curtis Amor on 05-05-2025 WBC (Bld) [#/Vol] 16.8 10*3/uL High 4.4-11.0 [facility] White blood cell countOrdere d By: Curtis Amor on 05-05-2025 White blood cell count 0-5 SEEN /hpf 0-5 [facility] BASIC METABOLIC PANEL WITH A NION GAPon 04-28-2025 Calcium [Mass/Vol] 8.2 mg/dL Low 8.6-10.3 [facility] Comment on above: Performed By: #### 9 1568 #### [facility] of [address], [address] [place] [address] Reed Worker: Jadon Velez MD Chloride [Moles/Vol] 99 mmol/L Normal 98-110 [facility] Comment on above: Performed By: #### 9 2498 #### [facility] of [address], [address] [place] [address] Reed Worker: Jadon Velez MD CO2 [Moles/Vol] 30 mmol/L Normal 20-32 [facility] Comment on above: Performed By: #### 9 2498 #### [facility] of [address], [address] [place] [address] Reed Worker: Jadon Velez MD Creatinine [Mass/Vol] 2.37 mg/dL High 0.70-1.[address] [facility] Comment on above: Performed By: #### 9 2498 #### [facility] of [address], [address] [place] [address] Reed Worker: Jadon Velez MD ELECTROLYTE BALANCE 10 mmol/L (calc) Normal 7-17 [facility] Comment on above: Performed By: #### 9 2498 #### [facility] of [place] [address] Reed Worker: Jadon Velez MD GFR/1.73 sq M.predicted among non-blacks MDRD (S/P/Bld) [Vol rate/Area] 27 mL/min/{1.73_m2} Low > OR = 60 [facility] Comment on above: Performed By: #### 9 2498 #### [facility] of [address], [address] [place] [address] Reed Worker: Jadon Velez MD Glucose [Mass/Vol] 40 mg/dL Low 65-99 [facility] Comment on above: Result Comment: Veri fied by repeat analysis. Fasting reference interval Performed By: #### 9 2498 #### [facility] of [place] [address] Reed Worker: Jadon Velez MD Potassium [Moles/Vol] 4.0 mmol/L Normal 3.5-5.[address] [facility] Comment on above: Performed By: #### 9 2498 #### [facility] of [address], [address] [place] [address] Reed Worker: Jadon Velez MD Sodium [Moles/Vol] 139 mmol/L Normal 135-146 [facility] Comment on above: Performed By: #### 9 2498 #### [facility] [address], [address] [place] [address] Reed Worker: Jadon Velez MD Urea nitrogen [Mass/Vol] 82 mg/dL High - [facility] Comment on above: Performed By: #### 9 2498 #### [facility] [address], [address] [place] [address] Reed Worker: Jadon Velez MD Urea nitrogen/Creatinine [Mass ratio] 35 mg/mg High - [facility] Comment on above: Performed By: #### 9 2498 #### [facility] [place] [address] Reed Worker: Jadon Velez MD Basic Metabolic Profile (BMP )on 04-23-2025 BUN Normal -19 [facility] Comment on above: Result Comment: Canc elled via OM: Order cancelled - Patient discharged Performed By: #### L 500.2500, L100.0100 ####[facility] [address] [place], [address] BUN/CRE Normal 10-20 [facility] Comment on above: Result Comment: Canc elled via OM: Order cancelled - Patient discharged Performed By: #### L 500.2500, L100.0100 ####[facility] [address] [place], [address] Calcium Normal 7.6-11.0 [facility] Comment on above: Result Comment: Canc elled via OM: Order cancelled - Patient discharged Performed By: #### L 500.2500, L100.0100 ####[facility] [address] [place], [address] CL Normal 98-108 [facility] Comment on above: Result Comment: Canc elled via OM: Order cancelled - Patient discharged Performed By: #### L 500.2500, L100.0100 ####[facility] [address] [place], [address] CO2 Normal 21.0-32.0 [facility] Comment on above: Result Comment: Canc elled via OM: Order cancelled - Patient discharged Performed By: #### L 500.2500, L100.0100 ####[facility] [address] [place], [address] CREAT,SERUM Normal 0.70-1.20 [facility] Comment on above: Result Comment: Canc elled via OM: Order cancelled - Patient discharged Performed By: #### L 500.2500, L100.0100 ####[facility] [address] [place], [address] eGFR Normal >60 [facility] Comment on above: Result Comment: Canc elled via OM: Order cancelled - Patient discharged Performed By: #### L 500.2500, L100.0100 ####[facility] [address] [place], [address] GAP Normal 5-15 [facility] Comment on above: Result Comment: Canc elled via OM: Order cancelled - Patient discharged Performed By: #### L 500.2500, L100.0100 ####[facility] [address] [place], [address] GLU Normal 70-99 [facility] Comment on above: Result Comment: Canc elled via OM: Order cancelled - Patient discharged Performed By: #### L 500.2500, L100.0100 ####[facility] [address] [place], [address] Potassium Normal 3.3-5.1 [facility] Comment on above: Result Comment: Canc elled via OM: Order cancelled - Patient discharged Performed By: #### L 500.2500, L100.0100 ####[facility] [address] [place], [address] Basic Metabolic Profile (BMP) Normal 133-145 [facility] Comment on above: Result Comment: Canc elled via OM: Order cancelled - Patient discharged Performed By: #### L 500.2500, L100.0100 ####[facility] [address] [place], [address] CBC W/Diff, Automatedon 06-2 Absolute Neut Normal 2.0-7.7 [facility] Comment on above: Result Comment: Canc elled via OM: Order cancelled - Patient discharged Performed By: #### L 500.2500, L100.0100 ####[facility] [address] [place], [address] HCT Normal 40-54 [facility] Comment on above: Result Comment: Canc elled via OM: Order cancelled - Patient discharged Performed By: #### L 500.2500, L100.0100 ####[facility] [address] [place], [address] HGB Normal 13.0-16.5 [facility] Comment on above: Result Comment: Canc elled via OM: Order cancelled - Patient discharged Performed By: #### L 500.2500, L100.0100 ####[facility] [address] [place], [address] MCH Normal 27.0-32.0 [facility] Comment on above: Result Comment: Canc elled via OM: Order cancelled - Patient discharged Performed By: #### L 500.2500, L100.0100 ####[facility] [address] [place], [address] MCHC Normal 32-36 [facility] Comment on above: Result Comment: Canc elled via OM: Order cancelled - Patient discharged Performed By: #### L 500.2500, L100.0100 ####[facility] [address] [place], [address] MCV Normal 80-94 [facility] Comment on above: Result Comment: Canc elled via OM: Order cancelled - Patient discharged Performed By: #### L 500.2500, L100.0100 ####[facility] [address], [address] NEUT% Normal 47-70 [facility] Comment on above: Result Comment: Canc elled via OM: Order cancelled - Patient discharged Performed By: #### L 500.2500, L100.0100 ####[facility] [address] [place], [address] PLT Normal 150-450 [facility] Comment on above: Result Comment: Canc elled via OM: Order cancelled - Patient discharged Performed By: #### L 500.2500, L100.0100 ####[facility] [address] [place], [address] RBC Normal 4.6-6.2 [facility] Comment on above: Result Comment: Canc elled via OM: Order cancelled - Patient discharged Performed By: #### L 500.2500, L100.0100 ####[facility] [address] [place], [address] RDW CV Normal 11.6-14.6 [facility] Comment on above: Result Comment: Canc elled via OM: Order cancelled - Patient discharged Performed By: #### L 500.2500, L100.0100 ####[facility] [address] [place], [address] RDW SD Normal 35.1-43.9 [facility] Comment on above: Result Comment: Canc elled via OM: Order cancelled - Patient discharged Performed By: #### L 500.2500, L100.0100 ####[facility] [address] [place], [address] WBC Normal 4.4-11.0 [facility] Comment on above: Result Comment: Canc elled via OM: Order cancelled - Patient discharged Performed By: #### L 500.2500, L100.0100 ####[facility] [address] [place], [address] Anion gap in Serum or Plasma Ordered By: Bipin Gonzalez on 04-22-2025 Anion gap [Moles/Vol] 14 mmol/L - [facility] BUN/creatinine ratioOrdered By: Bipin Gonzalez on 04-22-2025 Urea nitrogen/Creatinine [Mass ratio] 30.0 mg/mg High 10- [facility] Basic Metabolic Profile (BMP )on 04-22-2025 BUN/CRE 30.0 RATIO High - [facility] Comment on above: Performed By: #### L 500.2500, L501.5200 ####[facility] [address] [place], [address] Calcium [Mass/Vol] 8.6 mg/dL Normal 7.6-11.0 [facility] Comment on above: Performed By: #### L 500.2500, L501.5200 ####[facility] [address] [place], [address] Chloride [Moles/Vol] 100 mmol/L Normal 98-108 [facility] Comment on above: Performed By: #### L 500.2500, L501.5200 ####[facility] [address] [place], [address] CO2 [Moles/Vol] 23.0 mmol/L Normal 21.0-32.0 [facility] Comment on above: Performed By: #### L 500.2500, L501.5200 ####[facility] [address] [place], [address] Creatinine [Mass/Vol] 2.97 mg/dL High 0.70-1.20 [facility] Comment on above: Performed By: #### L 500.2500, L501.5200 ####[facility] [address] [place], [address] ECRCL 17.60 ml/min Low 50-250 [facility] Comment on above: Performed By: #### L 500.2500, L501.5200 ####[facility] [address] [place], [address] GAP 14 Normal 5-15 [facility] Comment on above: Performed By: #### L 500.2500, L501.5200 ####[facility] [address] [place], [address] GFR/1.73 sq M.predicted among non-blacks MDRD (S/P/Bld) [Vol rate/Area] 20 mL/min/{1.73_m2} Low >60 [place] Comment on above: Result Comment: mL/m in/1.73m2 CKD-EPI Creatinine Equation (2020) Performed By: #### L 500.2500, L501.5200 ####[facility] [address] [place], [address] Glucose [Mass/Vol] 240 mg/dL High 70-99 [facility] Comment on above: Performed By: #### L 500.2500, L501.5200 ####[facility] [address] [place], [address] Potassium [Moles/Vol] 4.2 mmol/L Normal 3.3-5.1 [facility] Comment on above: Performed By: #### L 500.2500, L501.5200 ####[facility] [address] [place], [address] Sodium [Moles/Vol] 137 mmol/L Normal 133-145 [facility] Comment on above: Performed By: #### L 500.2500, L501.5200 ####[facility] [address] [place], [address] Urea nitrogen [Mass/Vol] 89 mg/dL High 4-19 [facility] Comment on above: Performed By: #### L 500.2500, L501.5200 ####[facility] [address] [place], [address] Bedside Glucoseon 04-22-2025 FINGERSTICK GLU 246 mg/dL High 74-106 [facility] Comment on above: Result Comment: ADITI GEMENT OF PATIENT CARE PER NURSING PROTOCOL Performed By: #### L 501.080 ####[facility] [address] [place], [address] FINGERSTICK GLU 202 mg/dL High 74-106 [facility] Comment on above: Result Comment: ADITI GEMENT OF PATIENT CARE PER NURSING PROTOCOL Performed By: #### L 501.080 ####[facility] [address] [place], [address] Carbon dioxide, total [Moles /volume] in Central venous bloodOrdered By: Bipin Gonzalez on 04-22-2025 CO2 [Moles/Vol] 23.0 mmol/L 21.0-32.0 [facility] Chloride assayOrdered By: Song Gonzalez on 04-22-2025 Chloride [Moles/Vol] 100 mmol/L 98-108 [facility] Glomerular filtration rate ( GFR) estimation/1.73 sq m using serum, plasma, or whole bOrdered By: Bipin Gonzalez on 04-22-2025 GFR/1.73 sq M.predicted among non-blacks MDRD (S/P/Bld) [Vol rate/Area] 20 mL/min/{1.73_m2} Low >60 [place] Glucose measurement at bedsi deOrdered By: Malika Fonseca on 04-22-2025 Glucose [Mass/Vol] 246 mg/dL High 74-106 [facility] Glucose [Mass/Vol] 202 mg/dL High 74-106 [facility] Magnesiumon 04-22-2025 Magnesium [Mass/Vol] 2.7 mg/dL High 1.5-2.2 [facility] Comment on above: Performed By: #### L 500.2500, L501.5200 ####[facility] [address] [place], [address] Magnesium measurement (mass/ volume)Ordered By: Bipin Gonzalez on 04-22-2025 Magnesium (Unsp spec) [Mass/Vol] 2.7 mg/dL High 1.5-2.2 [facility] Potassium measurement (mass/ volume)Ordered By: Bipin Gonzalez on 04-22-2025 Potassium (Unsp spec) [Mass/Vol] 4.2 mmol/L 3.3-5.1 [facility] Serum creatinine measurement (mass/volume)Ordered By: Bipin Gonzalez on 04-22-2025 Creatinine [Mass/Vol] 2.97 mg/dL High 0.70-1.20 [facility] Serum glucose measurement (m ass/volume)Ordered By: Bipin Gonzalez on 04-22-2025 Glucose [Mass/Vol] 240 mg/dL High 70-99 [facility] Serum or plasma calcium nikkie urement (mass/volume)Ordered By: Bipin Gonzalez on 04-22-2025 Calcium [Mass/Vol] 8.6 mg/dL 7.6-11.0 [facility] Serum or plasma urea nitroge n measurement (mass/volume)Ordered By: Bipin Gonzalez on 04-22-2025 Urea nitrogen [Mass/Vol] 89 mg/dL High 4-19 [facility] Sodium levelOrdered By: Viet Gonzalez on 04-22-2025 Sodium [Moles/Vol] 137 mmol/L 133-145 [facility] Basic Metabolic Profile (BMP )on 04-21-2025 BUN/CRE 27.1 RATIO High 10-20 [facility] Comment on above: Performed By: #### L 500.2500 ####[facility] [address] [place], [address] Calcium [Mass/Vol] 8.9 mg/dL Normal 7.6-11.0 [facility] Comment on above: Performed By: #### L 500.2500 ####[facility] [address] [place], [address] Chloride [Moles/Vol] 102 mmol/L Normal 98-108 [facility] Comment on above: Performed By: #### L 500.2500 ####[facility] [address] [place], [address] CO2 [Moles/Vol] 22.4 mmol/L Normal 21.0-32.0 [facility] Comment on above: Performed By: #### L 500.2500 ####[facility] [address] [place], [address] Creatinine [Mass/Vol] 2.94 mg/dL High 0.70-1.20 [facility] Comment on above: Performed By: #### L 500.2500 ####[facility] [address] [place], [address] ECRCL 17.78 ml/min Low 50-250 [facility] Comment on above: Performed By: #### L 500.2500 ####[facility] [address] [place], [address] GAP 14 Normal 5-15 [facility] Comment on above: Performed By: #### L 500.2500 ####[facility] [address] [place], [address] GFR/1.73 sq M.predicted among non-blacks MDRD (S/P/Bld) [Vol rate/Area] 21 mL/min/{1.73_m2} Low >60 [place] Comment on above: Result Comment: mL/m in/1.73m2 CKD-EPI Creatinine Equation (2020) Performed By: #### L 500.2500 ####[facility] [address] [place], [address] Glucose [Mass/Vol] 136 mg/dL High 70-99 [facility] Comment on above: Performed By: #### L 500.2500 ####[facility] [address] [place], [address] Potassium [Moles/Vol] 4.5 mmol/L Normal 3.3-5.1 [facility] Comment on above: Performed By: #### L 500.2500 ####[facility] [address] [place], [address] Sodium [Moles/Vol] 138 mmol/L Normal 133-145 [facility] Comment on above: Performed By: #### L 500.2500 ####[facility] [address] [place], [address] Urea nitrogen [Mass/Vol] 80 mg/dL High 4-19 [facility] Comment on above: Performed By: #### L 500.2500 ####[facility] [address] [place], [address] Bedside Glucoseon 04-21-2025 FINGERSTICK GLU 341 mg/dL High 74-106 [facility] Comment on above: Result Comment: ADITI GEMENT OF PATIENT CARE PER NURSING PROTOCOL Performed By: #### L 501.080 ####[facility] [address] [place], [address] FINGERSTICK GLU 279 mg/dL High 74-106 [facility] Comment on above: Result Comment: ADITI GEMENT OF PATIENT CARE PER NURSING PROTOCOL Performed By: #### L 501.080 ####[facility] [address] [place], [address] FINGERSTICK GLU 201 mg/dL High 74-106 [facility] Comment on above: Result Comment: ADITI GEMENT OF PATIENT CARE PER NURSING PROTOCOL Performed By: #### L 501.080 ####[facility] [address] [place], [address] FINGERSTICK GLU 150 mg/dL High -106 [facility] Comment on above: Result Comment: ADITI GEMENT OF PATIENT CARE PER NURSING PROTOCOL Performed By: #### L 501.080 ####[facility] [address] [place], [address] Stool Occult Blood iFOBon STOB Positive Normal [facility] Comment on above: Performed By: #### M 100.7900 ####[facility] [address] [place], [address] Stool gastrointestinal hemog lobin detection by immunologic methodOrdered By: Nancy Henson on 04-21-2025 Lower GI hemoglobin IA Ql (Stl) Positive Abnormal [facility] Absolute lymphocyte countOrd ered By: Nancy Henson on 04-20-2025 Lymphocytes Auto (Unsp spec) [#/Vol] 0.52 10*3/uL Low 0.83-4.51 [facility] Automated lymphocyte count a s percentage of total leukocytesOrdered By: Nancy Henson on 04-20-2025 Lymphocytes/100 WBC Auto (Unsp spec) 3.5 % Low 19-41 [facility] Basophil percentageOrdered B y: Nancy Henson on 04-20-2025 Basophils/100 WBC (Bld) 0.1 % 0-1 [facility] Bedside Glucoseon 04-20-2025 FINGERSTICK GLU 241 mg/dL High 74-106 [facility] Comment on above: Result Comment: ADITI GEMENT OF PATIENT CARE PER NURSING PROTOCOL Performed By: #### L 501.080 ####[facility] [address] [place], [address] FINGERSTICK GLU 337 mg/dL High 74-106 [facility] Comment on above: Result Comment: ADITI GEMENT OF PATIENT CARE PER NURSING PROTOCOL Performed By: #### L 501.080 ####[facility] [address] [place], [address] FINGERSTICK GLU 391 mg/dL High 74-106 [facility] Comment on above: Result Comment: ADITI GEMENT OF PATIENT CARE PER NURSING PROTOCOL Performed By: #### L 501.080 ####[facility] [address] [place], [address] FINGERSTICK GLU 362 mg/dL High 74-106 [facility] Comment on above: Result Comment: ADITI GEMENT OF PATIENT CARE PER NURSING PROTOCOL Performed By: #### L 501.080 ####[facility] [address] [place], [address] Bilirubin, totalOrdered By: Nancy Henson on 04-20-2025 Bilirubin [Mass/Vol] 0.35 mg/dL 0.00-1.30 [facility] CBC W/Diff, Automatedon 04-02 0-2024 Absolute Lymph 0.52 X10 3/uL Low 0.83-4.51 [facility] Comment on above: Performed By: #### L 100.0100, L500.4050 ####[facility] [address] [place], [address] Absolute Neut 14.0 X10 3/uL High 2.0-7.7 [facility] Comment on above: Performed By: #### L 100.0100, L500.4050 ####[facility] [address] [place], [address] Basophils/100 WBC (Bld) 0.1 % Normal 0-1 [facility] Comment on above: Performed By: #### L 100.0100, L500.4050 ####[facility] [address], [address] Eosinophils/100 WBC (Bld) 0.0 % Normal 0-5 [facility] Comment on above: Performed By: #### L 100.0100, L500.4050 ####[facility] [address] [place], [address] Erythrocyte distribution width (RBC) [Ratio] 13.6 % Normal 11.6-14.6 [facility] Comment on above: Performed By: #### L 100.0100, L500.4050 ####[facility] [address] [place], [address] Hematocrit (Bld) [Volume fraction] 24.6 % Low 40-54 [facility] Comment on above: Performed By: #### L 100.0100, L500.4050 ####[facility] [address] [place], [address] Hemoglobin (Bld) [Mass/Vol] 7.9 g/dL Low 13.0-16.5 [facility] Comment on above: Performed By: #### L 100.0100, L500.4050 ####[facility] [address] [place], [address] IG% 0.800 Normal 0.0-0.9 [facility] Comment on above: Result Comment: IG% - Immature Granulocytes (promyelocytes, myelocytes andmetamyelocytes) > 1% indicates that a LEFT SHIFT is Present. Performed By: #### L 100.0100, L500.4050 ####[facility] [address] [place], [address] Lymphocytes/100 WBC (Bld) 3.5 % Low 19-41 [facility] Comment on above: Performed By: #### L 100.0100, L500.4050 ####[facility] [address] [place], [address] MCH (RBC) [Entitic mass] 29.9 pg Normal 27.0-32.0 [facility] Comment on above: Performed By: #### L 100.0100, L500.4050 ####[facility] [address] [place], [address] MCHC (RBC) [Mass/Vol] 32.1 g/dL Normal 32-36 [facility] Comment on above: Performed By: #### L 100.0100, L500.4050 ####[facility] [address] [place], [address] MCV (RBC) [Entitic vol] 93.2 fL Normal 80-94 [facility] Comment on above: Performed By: #### L 100.0100, L500.4050 ####[facility] [address] [place], [address] Monocytes/100 WBC (Bld) 1.7 % Normal 0-10 [facility] Comment on above: Performed By: #### L 100.0100, L500.4050 ####[facility] [address] [place], [address] Neutrophils/100 WBC (Bld) 93.9 % High 47-70 [facility] Comment on above: Performed By: #### L 100.0100, L500.4050 ####[facility] [address] [place], [address] Nucleated RBC (Bld) [#/Vol] 0 10*3/uL Normal 0-5 [facility] Comment on above: Performed By: #### L 100.0100, L500.4050 ####[facility] [address] [place], [address] Platelet mean volume (Bld) [Entitic vol] 11.6 fL Normal 6.2-12.0 [facility] Comment on above: Performed By: #### L 100.0100, L500.4050 ####[facility] [address] [place], [address] Platelets (Bld) [#/Vol] 216 10*3/uL Normal 150-450 [facility] Comment on above: Performed By: #### L 100.0100, L500.4050 ####[facility] [address] [place], [address] RBC (Bld) [#/Vol] 2.64 10*6/uL Low 4.6-6.2 [facility] Comment on above: Performed By: #### L 100.0100, L500.4050 ####[facility] [address] [place], [address] RDW SD 46.0 fl High 35.1-43.9 [facility] Comment on above: Performed By: #### L 100.0100, L500.4050 ####[facility] [address] [place], [address] WBC (Bld) [#/Vol] 14.9 10*3/uL High 4.4-11.0 [facility] Comment on above: Performed By: #### L 100.0100, L500.4050 ####[facility] [address] [place], [address] Comprehensive Metabolic Prof [facility] 04-20-2025 Albumin [Mass/Vol] 3.7 g/dL Normal 3.4-4.8 [facility] Comment on above: Performed By: #### L 100.0100, L500.4050 ####[facility] [address] [place], [address] Albumin/Globulin [Mass ratio] 1.5 {ratio} Normal 0.9-2.4 [facility] Comment on above: Performed By: #### L 100.0100, L500.4050 ####[facility] [address] [place], [address] ALK PHOS 78 U/L Normal 40-129 [facility] Comment on above: Performed By: #### L 100.0100, L500.4050 ####[facility] [address] [place], [address] ALT [Catalytic activity/Vol] 27 U/L Normal <=46 [facility] Comment on above: Performed By: #### L 100.0100, L500.4050 ####[facility] [address] [place], [address] AST [Catalytic activity/Vol] 21 U/L Normal <=37 [facility] Comment on above: Performed By: #### L 100.0100, L500.4050 ####[facility] [address] [place], [address] Bilirubin [Mass/Vol] 0.35 mg/dL Normal 0.00-1.30 [facility] Comment on above: Performed By: #### L 100.0100, L500.4050 ####[facility] [address] [place], [address] BUN/CRE 24.4 RATIO High 10-20 [facility] Comment on above: Performed By: #### L 100.0100, L500.4050 ####[facility] [address] [place], [address] Calcium [Mass/Vol] 9.1 mg/dL Normal 7.6-11.0 [facility] Comment on above: Performed By: #### L 100.0100, L500.4050 ####[facility] [address] [place], [address] Chloride [Moles/Vol] 99 mmol/L Normal 98-108 [facility] Comment on above: Performed By: #### L 100.0100, L500.4050 ####[facility] [address] [place], [address] CO2 [Moles/Vol] 22.7 mmol/L Normal 21.0-32.0 [facility] Comment on above: Performed By: #### L 100.0100, L500.4050 ####[facility] [address] [place], [address] Creatinine [Mass/Vol] 2.95 mg/dL High 0.70-1.20 [facility] Comment on above: Performed By: #### L 100.0100, L500.4050 ####[facility] [address] [place], [address] ECRCL 17.72 ml/min Low 50-250 [facility] Comment on above: Performed By: #### L 100.0100, L500.4050 ####[facility] [address] [place], [address] GAP 15 Normal 5-15 [facility] Comment on above: Performed By: #### L 100.0100, L500.4050 ####[facility] [address] [place], [address] GFR/1.73 sq M.predicted among non-blacks MDRD (S/P/Bld) [Vol rate/Area] 21 mL/min/{1.73_m2} Low >60 [place] Comment on above: Result Comment: mL/m in/1.73m2 CKD-EPI Creatinine Equation (2020) Performed By: #### L 100.0100, L500.4050 ####[facility] [address] [place], [address] Globulin (S) [Mass/Vol] 2.5 g/dL Normal 2.2-4.2 [facility] Comment on above: Performed By: #### L 100.0100, L500.4050 ####[facility] [address] [place], [address] Glucose [Mass/Vol] 375 mg/dL High 70-99 [facility] Comment on above: Performed By: #### L 100.0100, L500.4050 ####[facility] [address] [place], [address] Potassium [Moles/Vol] 4.7 mmol/L Normal 3.3-5.1 [facility] Comment on above: Performed By: #### L 100.0100, L500.4050 ####[facility] [address] [place], [address] Sodium [Moles/Vol] 136 mmol/L Normal 133-145 [facility] Comment on above: Performed By: #### L 100.0100, L500.4050 ####[facility] [address] [place], [address] T PROT 6.2 g/dL Normal 5.9-8.4 [facility] Comment on above: Performed By: #### L 100.0100, L500.4050 ####[facility] [address] [place], [address] Urea nitrogen [Mass/Vol] 72 mg/dL High 4-19 [facility] Comment on above: Performed By: #### L 100.0100, L500.4050 ####[facility] [address] [place], [address] Consultation - Cardiologyon 04-20-2025 Consultation - Cardiology Normal [facility] Electrocardiogram reportOrde red By: Barbie Martin on 04-20-2025 EKG study [facility] Work Phone: [phone] Eosinophil percentageOrdered By: Nancy Henson on 04-20-2025 Eosinophils/100 WBC (Bld) 0.0 % 0-5 [facility] Erythrocyte distribution wid th ratioOrdered By: Nancy Henson on 04-20-2025 Erythrocyte distribution width (RBC) [Ratio] 13.6 % 11.6-14.6 [facility] Erythrocyte distribution wid th standard deviationOrdered By: Nancy Henson on 04-20-2025 Erythrocyte distribution width (RBC) [Ratio] 46.0 fl High 35.1-43.9 [facility] Hematocrit Auto (Bld) [Volum e fraction]Ordered By: Nancy Henson on 04-20-2025 Hematocrit (Bld) [Volume fraction] 24.6 % Low 40-54 [facility] Hemoglobin measurementOrdere d By: Nancy Henson on 04-20-2025 Hemoglobin (Bld) [Mass/Vol] 7.9 g/dL Low 13.0-16.5 [facility] Immature granulocytes/100 WB C Auto (Bld)Ordered By: Nancy Henson on 04-20-2025 Immature granulocytes/100 WBC (Bld) 0.800 % 0.0-0.9 [facility] MCV (mean corpuscular volume ) determinationOrdered By: Nancy Henson on 04-20-2025 MCV (RBC) [Entitic vol] 93.2 fL 80-94 [facility] Mean corpuscular hemoglobin (MCH) determinationOrdered By: Nancy Henson on 04-20-2025 MCH (RBC) [Entitic mass] 29.9 pg 27.0-32.0 [facility] Monocyte percentageOrdered B y: Nancy Henson on 04-20-2025 Monocytes/100 WBC (Bld) 1.7 % 0-10 [facility] Neutrophil percentageOrdered By: Nancy Henson on 04-20-2025 Neutrophils/100 WBC (Bld) 93.9 % High 47-70 [facility] No Panel InformationOrdered By: Nancy Henson on 04-20-2025 21 U/L <38 [facility] Platelet countOrdered By: Juwan Henson on 04-20-2025 Platelets (Bld) [#/Vol] 216 10*3/uL 150-450 [facility] RBC Auto (Bld) [#/Vol]Ordere d By: Nancy Henson on 04-20-2025 RBC (Bld) [#/Vol] 2.64 10*6/uL Low 4.6-6.2 [facility] Serum globulin measurementOr dered By: Nancy Henson on 04-20-2025 Globulin (S) [Mass/Vol] 2.5 g/dL 2.2-4.2 [facility] Serum or plasma alanine clayton otransferase (ALT) measurementOrdered By: Nancy Henson on 04-20-2025 ALT [Catalytic activity/Vol] 27 U/L <47 [facility] Serum or plasma albumin nikkie urement (mass/volume)Ordered By: Nancy Henson on 04-20-2025 Albumin [Mass/Vol] 3.7 g/dL 3.4-4.8 [facility] Serum or plasma albumin/glob ulin mass ratioOrdered By: Nancy Henson on 04-20-2025 Albumin/Globulin [Mass ratio] 1.5 {ratio} 0.9-2.4 [facility] Serum or plasma alkaline dwight sphatase measurementOrdered By: Nancy Henson on 04-20-2025 ALP [Catalytic activity/Vol] 78 U/L 40-129 [facility] Total proteinOrdered By: Saravanan Henson on 04-20-2025 Protein [Mass/Vol] 6.2 g/dL 5.9-8.4 [facility] White blood cell (WBC) count Ordered By: Nancy Henson on 04-20-2025 WBC (Bld) [#/Vol] 14.9 10*3/uL High 4.4-11.0 [facility] 12 Lead EKGon 04-19-2025 12 Lead EKG Normal [facility] 12 Lead EKG Normal [facility] Absolute lymphocyte countOrd ered By: Arnulfo Jose on 04-19-2025 Lymphocytes Auto (Unsp spec) [#/Vol] 1.40 10*3/uL 0.83-4.51 [facility] Anion gap in Serum or Plasma Ordered By: Arnulfo Jose on 04-19-2025 Anion gap [Moles/Vol] 15 mmol/L 5-15 [facility] Assessment of wrist artery p atency prior to arterial punctureOrdered By: Nancy Henson on 04-19-2025 Arterial patency Wrist artery --pre arterial puncture N/A [facility] Arterial patency Wrist artery --pre arterial puncture Positive [facility] Automated lymphocyte count a s percentage of total leukocytesOrdered By: Arnulfo Jose on 04-19-2025 Lymphocytes/100 WBC Auto (Unsp spec) 10.0 % Low 19-41 [facility] BUN/creatinine ratioOrdered By: Arnulfo Jose on 04-19-2025 Urea nitrogen/Creatinine [Mass ratio] 23.8 mg/mg High 10-20 [facility] Basic Metabolic Profile (BMP )on 04-19-2025 BUN/CRE 24.8 RATIO High 10-20 [facility] Comment on above: Performed By: #### L 500.2500 ####[facility] [address] [place], [address] Calcium [Mass/Vol] 9.1 mg/dL Normal 7.6-11.0 [facility] Comment on above: Performed By: #### L 500.2500 ####[facility] [address] [place], [address] Chloride [Moles/Vol] 101 mmol/L Normal 98-108 [facility] Comment on above: Performed By: #### L 500.2500 ####[facility] [address] [place], [address] CO2 [Moles/Vol] 21.1 mmol/L Normal 21.0-32.0 [facility] Comment on above: Performed By: #### L 500.2500 ####[facility] [address] [place], [address] Creatinine [Mass/Vol] 2.79 mg/dL High 0.70-1.20 [facility] Comment on above: Performed By: #### L 500.2500 ####[facility] [address] [place], [address] ECRCL 18.74 ml/min Low 50-250 [facility] Comment on above: Performed By: #### L 500.2500 ####[facility] [address] [place], [address] GAP 15 Normal 5-15 [facility] Comment on above: Performed By: #### L 500.2500 ####[facility] [address] [place], [address] GFR/1.73 sq M.predicted among non-blacks MDRD (S/P/Bld) [Vol rate/Area] 22 mL/min/{1.73_m2} Low >60 [place] Comment on above: Result Comment: mL/m in/1.73m2 CKD-EPI Creatinine Equation (2020) Performed By: #### L 500.2500 ####[facility] [address] [place], [address] Glucose [Mass/Vol] 447 mg/dL High 70-99 [facility] Comment on above: Performed By: #### L 500.2500 ####[facility] [address] [place], [address] Potassium [Moles/Vol] 4.9 mmol/L Normal 3.3-5.1 [facility] Comment on above: Performed By: #### L 500.2500 ####[facility] [address] [place], [address] Sodium [Moles/Vol] 137 mmol/L Normal 133-145 [facility] Comment on above: Performed By: #### L 500.2500 ####[facility] [address] [place], [address] Urea nitrogen [Mass/Vol] 69 mg/dL High 4-19 [facility] Comment on above: Performed By: #### L 500.2500 ####[facility] [address] [place], [address] BUN/CRE 23.8 RATIO High 10-20 [facility] Comment on above: Performed By: #### L 503.7505, L501.5200, L500.2500, L100.0100 ####[facility] [address] [place], [address] Calcium [Mass/Vol] 8.6 mg/dL Normal 7.6-11.0 [facility] Comment on above: Performed By: #### L 503.7505, L501.5200, L500.2500, L100.0100 ####[facility] [address] [place], [address] Chloride [Moles/Vol] 100 mmol/L Normal 98-108 [facility] Comment on above: Performed By: #### L 503.7505, L501.5200, L500.2500, L100.0100 ####[facility] [address] [place], [address] CO2 [Moles/Vol] 20.9 mmol/L Low 21.0-32.0 [facility] Comment on above: Performed By: #### L 503.7505, L501.5200, L500.2500, L100.0100 ####[facility] [address] [place], [address] Creatinine [Mass/Vol] 2.73 mg/dL High 0.70-1.20 [facility] Comment on above: Performed By: #### L 503.7505, L501.5200, L500.2500, L100.0100 ####[facility] [address] [place], [address] ECRCL 19.84 ml/min Low 50-250 [facility] Comment on above: Performed By: #### L 503.7505, L501.5200, L500.2500, L100.0100 ####[facility] [address] [place], [address] GAP 15 Normal 5-15 [facility] Comment on above: Performed By: #### L 503.7505, L501.5200, L500.2500, L100.0100 ####[facility] [address] [place], [address] GFR/1.73 sq M.predicted among non-blacks MDRD (S/P/Bld) [Vol rate/Area] 23 mL/min/{1.73_m2} Low >60 [place] Comment on above: Result Comment: mL/m in/1.73m2 CKD-EPI Creatinine Equation (2020) Performed By: #### L 503.7505, L501.5200, L500.2500, L100.0100 ####[facility] [address] [place], [address] Glucose [Mass/Vol] 406 mg/dL High 70-99 [facility] Comment on above: Performed By: #### L 503.7505, L501.5200, L500.2500, L100.0100 ####[facility] [address] [place], [address] Potassium [Moles/Vol] 5.9 mmol/L High 3.3-5.1 [facility] Comment on above: Performed By: #### L 503.7505, L501.5200, L500.2500, L100.0100 ####[facility] [address] [place], [address] Sodium [Moles/Vol] 136 mmol/L Normal 133-145 [facility] Comment on above: Performed By: #### L 503.7505, L501.5200, L500.2500, L100.0100 ####[facility] [address] [place], [address] Urea nitrogen [Mass/Vol] 65 mg/dL High 4-19 [facility] Comment on above: Performed By: #### L 503.7505, L501.5200, L500.2500, L100.0100 ####[facility] [address] [place], [address] Basophil percentageOrdered B y: Arnulfo Jose on 06-19-2025 Basophils/100 WBC (Bld) 0.5 % 0-1 [facility] Bedside Glucoseon 04-19-2025 FINGERSTICK GLU 393 mg/dL High 74-106 [facility] Comment on above: Result Comment: ADITI GEMENT OF PATIENT CARE PER NURSING PROTOCOL Performed By: #### L 501.080 ####[facility] [address] [place], [address] FINGERSTICK GLU 374 mg/dL High 74-106 [facility] Comment on above: Result Comment: ADITI GEMENT OF PATIENT CARE PER NURSING PROTOCOL Performed By: #### L 501.080 ####[facility] [address] [place], [address] FINGERSTICK GLU 376 mg/dL High [address] [place] [address] Comment on above: Result Comment: ADITI GEMENT OF PATIENT CARE PER NURSING PROTOCOL Performed By: #### L 501.080 ####[facility] [address] [place], [address] FINGERSTICK GLU 403 mg/dL High [address] [place] [address] Comment on above: Result Comment: ADITI GEMENT OF PATIENT CARE PER NURSING PROTOCOL Performed By: #### L 501.080 ####[facility] [address] [place], [address] FINGERSTICK GLU 437 mg/dL High [address] [place] [address] Comment on above: Result Comment: ADITI GEMENT OF PATIENT CARE PER NURSING PROTOCOL Performed By: #### L 501.080 ####[facility] [address] [place], [address] Bilirubin Test strip Ql (U)O rdered By: Nancy Henson on 04-19-2025 Bilirubin Ql (U) Negative Negative [facility] Blood Gases by CPSon 025 FILI TEST N/A Normal [facility] Comment on above: Performed By: #### L 9000.0800 ####[facility] [address] [place], [address] Base excess Calc (Bld) [Moles/Vol] -2 mmol/L Normal -2 to +2 [facility] Comment on above: Performed By: #### L 8999.0800 ####[facility] [address] [place], [address] Blood Gas Type ART Normal [facility] Comment on above: Performed By: #### L 8999.0800 ####[facility] [address] [place], [address] CO2 [Moles/Vol] 23 mmol/L Normal [facility] Comment on above: Performed By: #### L 8999.0800 ####[facility] [address] [place], [address] Comment AIRVO 50L 50% Normal [facility] Comment on above: Performed By: #### L 8999.0800 ####[facility] [address] [place], [address] HCO3 (Bld) [Moles/Vol] 22.4 mmol/L Normal 22-26 [facility] Comment on above: Performed By: #### L 8999.0800 ####[facility] [address] [place], [address] Mode Not entered Normal [facility] Comment on above: Performed By: #### L 0.0800 ####[facility] [address] [place], [address] O2 Delivery Dev AIRVO Normal [facility] Comment on above: Performed By: #### L 8999.0800 ####[facility] [address] [place], [address] pCO2 33.2 mmHg Low 35-45 [facility] Comment on above: Performed By: #### L 0.0800 ####[facility] [address] [place], [address] pH (Bld) 7.44 [pH] Normal 7.35-7.45 [facility] Comment on above: Performed By: #### L 9000.0800 ####[facility] [address] [place], [address] PO2 92 mmHG Normal 75-100 [facility] Comment on above: Performed By: #### L 9000.0800 ####[facility] [address] [place], [address] SITE L Radial Normal [facility] Comment on above: Performed By: #### L 9000.0800 ####[facility] [address] [place], [address] SO2 98 Normal 95-99 [facility] Comment on above: Performed By: #### L 9000.0800 ####[facility] [address] [place], [address] FILI TEST Positive Normal [facility] Comment on above: Performed By: #### L 9000.0800 ####[facility] [address] [place], [address] Base excess Calc (Bld) [Moles/Vol] -2 mmol/L Normal -2 to +2 [facility] Comment on above: Performed By: #### L 9000.0800 ####[facility] [address] [place], [address] Blood Gas Type ART Normal [facility] Comment on above: Performed By: #### L 9000.0800 ####[facility] [address] [place], [address] CO2 [Moles/Vol] 23 mmol/L Normal [facility] Comment on above: Performed By: #### L 9000.0800 ####[facility] [address] [place], [address] FI02 50.0 Normal [facility] Comment on above: Performed By: #### L 9000.0800 ####[facility] [address] [place], [address] HCO3 (Bld) [Moles/Vol] 21.6 mmol/L Low 22-26 [facility] Comment on above: Performed By: #### L 9000.0800 ####[facility] [address] [place], [address] Mode Not entered Normal [facility] Comment on above: Performed By: #### L 9000.0800 ####[facility] [address] [place], [address] O2 Delivery Dev HFNC Normal [facility] Comment on above: Performed By: #### L 9000.0800 ####[facility] [address] [place], [address] pCO2 30.8 mmHg Low 35-45 [facility] Comment on above: Performed By: #### L 9000.0800 ####[facility] [address] [place], [address] pH (Bld) 7.45 [pH] Normal 7.35-7.45 [facility] Comment on above: Performed By: #### L 9000.0800 ####[facility] [address] [place], [address] PO2 103 mmHG High 75-100 [facility] Comment on above: Performed By: #### L 9000.0800 ####[facility] [address] [place], [address] SITE L Radial Normal [facility] Comment on above: Performed By: #### L 9000.0800 ####[facility] [address] [place], [address] SO2 98 Normal 95-99 [facility] Comment on above: Performed By: #### L 9000.0800 ####[facility] [address] [place], [address] Blood base excess determinat ionOrdered By: Nancy Henson on 04-19-2025 Base excess Calc (BldV) [Moles/Vol] -2 mmol/L -2-2 [facility] Base excess Calc (BldV) [Moles/Vol] -2 mmol/L -2-2 [facility] Blood bicarbonate measuremen tOrdered By: Nancy Henson on 04-19-2025 HCO3 (Bld) [Moles/Vol] 22.4 mmol/L 22- [facility] HCO3 (Bld) [Moles/Vol] 21.6 mmol/L Low -26 [facility] CBC W/Diff, Automatedon 04-01 Absolute Lymph 0.33 X10 3/uL Low 0.83-4.51 [facility] Comment on above: Performed By: #### L 501.9985, L100.0100, L501.2300 ####[facility] [address] [place], [address] Absolute Neut 12.7 X10 3/uL High 2.0-7.7 [facility] Comment on above: Performed By: #### L 501.9985, L100.0100, L501.2300 ####[facility] [address] [place], [address] Basophils/100 WBC (Bld) 0.2 % Normal 0-1 [facility] Comment on above: Performed By: #### L 501.9985, L100.0100, L501.2300 ####[facility] [address] [place], [address] Eosinophils/100 WBC (Bld) 0.1 % Normal 0-5 [facility] Comment on above: Performed By: #### L 501.9985, L100.0100, L501.2300 ####[facility] [address] [place], [address] Erythrocyte distribution width (RBC) [Ratio] 13.4 % Normal 11.6-14.6 [facility] Comment on above: Performed By: #### L 501.9985, L100.0100, L501.2300 ####[facility] [address] [place], [address] Hematocrit (Bld) [Volume fraction] 23.7 % Low 40-54 [facility] Comment on above: Performed By: #### L 501.9985, L100.0100, L501.2300 ####[facility] [address] [place], [address] Hemoglobin (Bld) [Mass/Vol] 7.5 g/dL Low 13.0-16.5 [facility] Comment on above: Performed By: #### L 501.9985, L100.0100, L501.2300 ####[facility] [address] [place], [address] IG% 0.600 Normal 0.0-0.9 [facility] Comment on above: Result Comment: IG% - Immature Granulocytes (promyelocytes, myelocytes andmetamyelocytes) > 1% indicates that a LEFT SHIFT is Present. Performed By: #### L 501.9985, L100.0100, L501.2300 ####[facility] [address] [place], [address] Lymphocytes/100 WBC (Bld) 2.4 % Low 19-41 [facility] Comment on above: Performed By: #### L 501.9985, L100.0100, L501.2300 ####[facility] [address] [place], [address] MCH (RBC) [Entitic mass] 29.8 pg Normal 27.0-32.0 [facility] Comment on above: Performed By: #### L 501.9985, L100.0100, L501.2300 ####[facility] [address] [place], [address] MCHC (RBC) [Mass/Vol] 31.6 g/dL Low 32-36 [facility] Comment on above: Performed By: #### L 501.9985, L100.0100, L501.2300 ####[facility] [address] [place], [address] MCV (RBC) [Entitic vol] 94.0 fL Normal 80-94 [facility] Comment on above: Performed By: #### L 501.9985, L100.0100, L501.2300 ####[facility] [address] [place], [address] Monocytes/100 WBC (Bld) 2.4 % Normal 0-10 [facility] Comment on above: Performed By: #### L 501.9985, L100.0100, L501.2300 ####[facility] [address] [place], [address] Neutrophils/100 WBC (Bld) 94.3 % High 47-70 [facility] Comment on above: Performed By: #### L 501.9985, L100.0100, L501.2300 ####[facility] [address] [place], [address] Nucleated RBC (Bld) [#/Vol] 0 10*3/uL Normal 0-5 [facility] Comment on above: Performed By: #### L 501.9985, L100.0100, L501.2300 ####[facility] [address] [place], [address] Platelet mean volume (Bld) [Entitic vol] 11.3 fL Normal 6.2-12.0 [facility] Comment on above: Performed By: #### L 501.9985, L100.0100, L501.2300 ####[facility] [address] [place], [address] Platelets (Bld) [#/Vol] 218 10*3/uL Normal 150-450 [facility] Comment on above: Performed By: #### L 501.9985, L100.0100, L501.2300 ####[facility] [address] [place], [address] RBC (Bld) [#/Vol] 2.52 10*6/uL Low 4.6-6.2 [facility] Comment on above: Performed By: #### L 501.9985, L100.0100, L501.2300 ####[facility] [address] [place], [address] RDW SD 46.2 fl High 35.1-43.9 [facility] Comment on above: Performed By: #### L 501.9985, L100.0100, L501.2300 ####[facility] [address] [place], [address] WBC (Bld) [#/Vol] 13.5 10*3/uL High 4.4-11.0 [facility] Comment on above: Performed By: #### L 501.9985, L100.0100, L501.2300 ####[facility] [address] [place], [address] Absolute Lymph 1.40 X10 3/uL Normal 0.83-4.51 [facility] Comment on above: Performed By: #### L 503.7505, L501.5200, L500.2500, L100.0100 ####[facility] [address] [place], [address] Absolute Neut 11.5 X10 3/uL High 2.0-7.7 [facility] Comment on above: Performed By: #### L 503.7505, L501.5200, L500.2500, L100.0100 ####[facility] [address] [place], [address] Basophils/100 WBC (Bld) 0.5 % Normal 0-1 [facility] Comment on above: Performed By: #### L 503.7505, L501.5200, L500.2500, L100.0100 ####[facility] [address] [place], [address] Eosinophils/100 WBC (Bld) 1.0 % Normal 0-5 [facility] Comment on above: Performed By: #### L 503.7505, L501.5200, L500.2500, L100.0100 ####[facility] [address] [place], [address] Erythrocyte distribution width (RBC) [Ratio] 13.4 % Normal 11.6-14.6 [facility] Comment on above: Performed By: #### L 503.7505, L501.5200, L500.2500, L100.0100 ####[facility] [address] [place], [address] Hematocrit (Bld) [Volume fraction] 27.5 % Low 40-54 [facility] Comment on above: Performed By: #### L 503.7505, L501.5200, L500.2500, L100.0100 ####[facility] [address] [place], [address] Hemoglobin (Bld) [Mass/Vol] 8.8 g/dL Low 13.0-16.5 [facility] Comment on above: Performed By: #### L 503.7505, L501.5200, L500.2500, L100.0100 ####[facility] [address] [place], [address] IG% 0.500 Normal 0.0-0.9 [facility] Comment on above: Result Comment: IG% - Immature Granulocytes (promyelocytes, myelocytes andmetamyelocytes) > 1% indicates that a LEFT SHIFT is Present. Performed By: #### L 503.7505, L501.5200, L500.2500, L100.0100 ####[facility] [address] [place], [address] Lymphocytes/100 WBC (Bld) 10.0 % Low 19-41 [facility] Comment on above: Performed By: #### L 503.7505, L501.5200, L500.2500, L100.0100 ####[facility] [address] [place], [address] MCH (RBC) [Entitic mass] 30.0 pg Normal 27.0-32.0 [facility] Comment on above: Performed By: #### L 503.7505, L501.5200, L500.2500, L100.0100 ####[facility] [address] [place], [address] MCHC (RBC) [Mass/Vol] 32.0 g/dL Normal 32-36 [facility] Comment on above: Performed By: #### L 503.7505, L501.5200, L500.2500, L100.0100 ####[facility] [address] [place], [address] MCV (RBC) [Entitic vol] 93.9 fL Normal 80-94 [facility] Comment on above: Performed By: #### L 503.7505, L501.5200, L500.2500, L100.0100 ####[facility] [address] [place], [address] Monocytes/100 WBC (Bld) 5.7 % Normal 0-10 [facility] Comment on above: Performed By: #### L 503.7505, L501.5200, L500.2500, L100.0100 ####[facility] [address] [place], [address] Neutrophils/100 WBC (Bld) 82.3 % High 47-70 [facility] Comment on above: Performed By: #### L 503.7505, L501.5200, L500.2500, L100.0100 ####[facility] [address] [place], [address] Nucleated RBC (Bld) [#/Vol] 0 10*3/uL Normal 0-5 [facility] Comment on above: Performed By: #### L 503.7505, L501.5200, L500.2500, L100.0100 ####[facility] [address] [place], [address] Platelet mean volume (Bld) [Entitic vol] 11.4 fL Normal 6.2-12.0 [facility] Comment on above: Performed By: #### L 503.7505, L501.5200, L500.2500, L100.0100 ####[facility] [address] [place], [address] Platelets (Bld) [#/Vol] 289 10*3/uL Normal 150-450 [facility] Comment on above: Performed By: #### L 503.7505, L501.5200, L500.2500, L100.0100 ####[facility] [address] [place], [address] RBC (Bld) [#/Vol] 2.93 10*6/uL Low 4.6-6.2 [facility] Comment on above: Performed By: #### L 503.7505, L501.5200, L500.2500, L100.0100 ####[facility] [address] [place], [address] RDW SD 46.1 fl High 35.1-43.9 [facility] Comment on above: Performed By: #### L 503.7505, L501.5200, L500.2500, L100.0100 ####[facility] [address] [place], [address] WBC (Bld) [#/Vol] 14.0 10*3/uL High 4.4-11.0 [facility] Comment on above: Performed By: #### L 503.7505, L501.5200, L500.2500, L100.0100 ####[facility] [address] [place], [address] Carbon dioxide, total [Moles /volume] in Central venous bloodOrdered By: Arnulfo Jose on 04-19-2025 CO2 [Moles/Vol] 20.9 mmol/L Low 21.0-32.0 [facility] Chest 1 View (Portable)on Chest 1 View (Portable) Normal [facility] Chloride assayOrdered By: Stephenie Jose on 04-19-2025 Chloride [Moles/Vol] 100 mmol/L 98-108 [facility] Comprehensive Metabolic Prof ilon 04-19-2025 Albumin [Mass/Vol] 3.3 g/dL Low 3.4-4.8 [facility] Comment on above: Performed By: #### L 503.7505, L501.9520, L500.4050 ####[facility] [address] [place], [address] Albumin/Globulin [Mass ratio] 1.3 {ratio} Normal 0.9-2.4 [facility] Comment on above: Performed By: #### L 503.7505, L501.9520, L500.4050 ####[facility] [address] [place], [address] ALK PHOS 76 U/L Normal 40-129 [facility] Comment on above: Performed By: #### L 503.7505, L501.9520, L500.4050 ####[facility] [address] [place], [address] ALT [Catalytic activity/Vol] 30 U/L Normal <=46 [facility] Comment on above: Performed By: #### L 503.7505, L501.9520, L500.4050 ####[facility] [address] [place], [address] AST [Catalytic activity/Vol] 26 U/L Normal <=37 [facility] Comment on above: Performed By: #### L 503.7505, L501.9520, L500.4050 ####[facility] [address] [place], [address] Bilirubin [Mass/Vol] 0.31 mg/dL Normal 0.00-1.30 [facility] Comment on above: Performed By: #### L 503.7505, L501.9520, L500.4050 ####[facility] [address] [place], [address] BUN/CRE 23.4 RATIO High 10-20 [facility] Comment on above: Performed By: #### L 503.7505, L501.9520, L500.4050 ####[facility] [address] [place], [address] Calcium [Mass/Vol] 9.3 mg/dL Normal 7.6-11.0 [facility] Comment on above: Performed By: #### L 503.7505, L501.9520, L500.4050 ####[facility] [address] [place], [address] Chloride [Moles/Vol] 101 mmol/L Normal 98-108 [facility] Comment on above: Performed By: #### L 503.7505, L501.9520, L500.4050 ####[facility] [address] [place], [address] CO2 [Moles/Vol] 17.8 mmol/L Low 21.0-32.0 [facility] Comment on above: Performed By: #### L 503.7505, L501.9520, L500.4050 ####[facility] [address] [place], [address] Creatinine [Mass/Vol] 2.95 mg/dL High 0.70-1.20 [facility] Comment on above: Performed By: #### L 503.7505, L501.9520, L500.4050 ####[facility] [address] [place], [address] ECRCL 17.72 ml/min Low 50-250 [facility] Comment on above: Performed By: #### L 503.7505, L501.9520, L500.4050 ####[facility] [address] [place], [address] GAP 18 High 5-15 [facility] Comment on above: Performed By: #### L 503.7505, L501.9520, L500.4050 ####[facility] [address] [place], [address] GFR/1.73 sq M.predicted among non-blacks MDRD (S/P/Bld) [Vol rate/Area] 21 mL/min/{1.73_m2} Low >60 [facility] Comment on above: Result Comment: mL/m in/1.73m2 CKD-EPI Creatinine Equation (2020) Performed By: #### L 503.7505, L501.9520, L500.4050 ####[facility] [address] [place], [address] Globulin (S) [Mass/Vol] 2.5 g/dL Normal 2.2-4.2 [facility] Comment on above: Performed By: #### L 503.7505, L501.9520, L500.4050 ####[facility] [address] [place], [address] Glucose [Mass/Vol] 447 mg/dL High 70-99 [facility] Comment on above: Performed By: #### L 503.7505, L501.9520, L500.4050 ####[facility] [address] [place], [address] Potassium [Moles/Vol] 5.2 mmol/L High 3.3-5.1 [facility] Comment on above: Performed By: #### L 503.7505, L501.9520, L500.4050 ####[facility] [address] [place], [address] Sodium [Moles/Vol] 137 mmol/L Normal 133-145 [facility] Comment on above: Performed By: #### L 503.7505, L501.9520, L500.4050 ####[facility] [address] [place], [address] T PROT 5.8 g/dL Low 5.9-8.4 [facility] Comment on above: Performed By: #### L 503.7505, L501.9520, L500.4050 ####[facility] [address] [place], [address] Urea nitrogen [Mass/Vol] 69 mg/dL High 4-19 [facility] Comment on above: Performed By: #### L 503.7505, L501.9520, L500.4050 ####[facility] [address] [place], [address] Consultation - Nephrologyon 04-19-2025 Consultation - Nephrology Normal [facility] D-Dimer Quantitative (DVT/PE )on 04-19-2025 D-DIMER QUANT 2.17 FEU/ug/m Invalid Interpretation Code 0.27-0.49 [facility] Comment on above: Result Comment: D-Di shyanne ELEVATED (>0.49): Additional studies and clinicalassessments are indicated to conclude diagnosis of:Deep Vein Thrombosis (DVT) or Pulmonary Embolism (PE)CRITICAL VALUE CALLED TO DELFIN ADJYAT28/19/25 0101 Lydia Villanueva.RESULTS READ BACK BY SAME. Performed By: #### L 509.7001, L300.8000 ####[facility] [address] [place], [address] Emergency Department Summary on 04-19-2025 Emergency Department Summary Normal [facility] Eosinophil percentageOrdered By: Arnulfo Jose on 04-19-2025 Eosinophils/100 WBC (Bld) 1.0 % 0-5 [facility] Erythrocyte distribution wid th ratioOrdered By: Arnulfo Jose on 04-19-2025 Erythrocyte distribution width (RBC) [Ratio] 13.4 % 11.6-14.6 [facility] Erythrocyte distribution wid th standard deviationOrdered By: Arnulfo Jose on 04-19-2025 Erythrocyte distribution width (RBC) [Ratio] 46.1 fl High 35.1-43.9 [facility] Glomerular filtration rate ( GFR) estimation/1.73 sq m using serum, plasma, or whole bOrdered By: Arnulfo Jose on 04-19-2025 GFR/1.73 sq M.predicted among non-blacks MDRD (S/P/Bld) [Vol rate/Area] 23 mL/min/{1.73_m2} Low >60 [place] [facility] deOrdered By: Nancy Henson on 04-19-2025 Glucose [Mass/Vol] 437 mg/dL High 74-106 [facility] H AND P Exam - Hospitaliston 04-19-2025 H&P Exam - Hospitalist Normal [place] Hematocrit Auto (Bld) [Volum e fraction]Ordered By: Arnulfo Jose on 04-19-2025 Hematocrit (Bld) [Volume fraction] 27.5 % Low 40-54 [facility] Hemoglobin A1con 04-19-2025 HbA1c (Bld) [Mass fraction] 7.1 % High <=5.6 [facility] Comment on above: Result Comment: Norm al < 5.7 % Prediabetic 5.7 - 6.4 % Diabetic >or= 6.5 % Please note range changes. Performed By: #### L 501.9985, L100.0100, L501.2300 ####[facility] [address] [place], [address] Hemoglobin A1c percentageOrd ered By: Nancy Henson on 04-19-2025 HbA1c (Bld) [Mass fraction] 7.1 % High <5.7 [facility] Hemoglobin measurementOrdere d By: Arnulfo Jose on 04-19-2025 Hemoglobin (Bld) [Mass/Vol] 8.8 g/dL Low 13.0-16.5 [facility] Immature granulocytes/100 WB C Auto (Bld)Ordered By: Arnulfo Jose on 04-19-2025 Immature granulocytes/100 WBC (Bld) 0.500 % 0.0-0.9 [facility] Influenza virus A and B and SARS-CoV-2 (COVID-19) and Respiratory syncytial virus RNAOrdered By: Arnulfo Jose on 04-19-2025 SARS-CoV-2 (COVID-19) RNA ALICE+probe Ql (Unsp spec) [facility] Ketones Test strip Ql (U)Ord ered By: Nancy Henson on 04-19-2025 Ketones Ql (U) Negative Negative [facility] L499.0042on 04-19-2025 Trop T High Sen 385 ng/L Invalid Interpretation Code <=22 [facility] Comment on above: Result Comment: Crit ical Result(s) Called at 0636: by: BIPIN BROWNE. ??Results read back by same. Performed By: #### L 499.0042 ####[facility] [address] [place], [address] L499.0043on 04-19-2025 Trop T High Sen 350 ng/L Invalid Interpretation Code <=22 [facility] Comment on above: Result Comment: Crit ical Result(s) Called at: 04/19/2025-10:51 by: Neal escalona Zelalem Fowler.??Results read back by same. Performed By: #### L 499.0043 ####[facility] [address] [place], [address] L501.4021on 04-19-2025 Trop T High Sen 394 ng/L Invalid Interpretation Code <=22 [facility] Comment on above: Result Comment: Crit ical Result(s) Called at 0511: by: BIPIN SILVERMAN.??Results read back by same. Performed By: #### L 501.4021 ####[facility] [address] [place], [address] L503.7505on 04-19-2025 Natriuretic peptide B (Bld) [Mass/Vol] 05592 pg/mL High <=1800 [facility] Comment on above: Result Comment: Hear t Failure Unlikely: < 300 pg/mLHeart Failure Likely< 50 Years: > 450 pg/mL50-75 Years: > 900 pg/mL>75 Years: > 1800 pg/mL Performed By: #### L 503.7505, L501.9520, L500.4050 ####[facility] [address] [place], [address] Natriuretic peptide B (Bld) [Mass/Vol] 74721 pg/mL High <=1800 [facility] Comment on above: Result Comment: Hear t Failure Unlikely: < 300 pg/mLHeart Failure Likely< 50 Years: > 450 pg/mL50-75 Years: > 900 pg/mL>75 Years: > 1800 pg/mL Performed By: #### L 503.7505, L501.5200, L500.2500, L100.0100 ####[facility] [address] [place], [address] L509.7001on 04-19-2025 Procalcitonin 0.10 ng/mL Normal <=0.10 [facility] Comment on above: Result Comment: Inte rpretation:<0.10-0.25 [...] By: #### L 509.7001, L300.8000 ####[facility] [address] [place], [address] Lactic Acidon 04-19-2025 Lactate [Moles/Vol] 2.7 mmol/L Invalid Interpretation Code 0.0-2.0 [facility] Comment on above: Result Comment: Crit ical Result(s) Called at: 04/19/2025-10:35 by: Iraida.??Results read back by same. Performed By: #### L 503.6004 ####[facility] [address] [place], [place], [address] Lactate [Moles/Vol] 4.8 mmol/L Invalid Interpretation Code 0.0-2.0 [facility] Comment on above: Order Comment: Y Result Comment: Crit ical Result(s) Called at 0448: by: BIPIN BROWNE. ??Results read back by same. Performed By: #### L 503.6003 ####[facility] [address] [place], [place], [address] Lung Scan Vent/Perfon 2024 Lung Scan Vent/Perf Normal [facility] M100.678on 04-19-2025 M100.678 SARS-CoV-2 (COVID 19) Negative INFLUENZA A Negative INFLUENZA B Negative RSV PCR Negative Normal [facility] Comment on above: Performed By: #### M 100.678 ####[facility] [address] [place], [address] MCV (mean corpuscular volume ) determinationOrdered By: Arnulfo Jose on 04-19-2025 MCV (RBC) [Entitic vol] 93.9 fL 80-94 [facility] Magnesiumon 04-19-2025 Magnesium [Mass/Vol] 2.3 mg/dL High 1.5-2.2 [facility] Comment on above: Performed By: #### L 503.7505, L501.5200, L500.2500, L100.0100 ####[facility] [address] [place], [address] Magnesium measurement (mass/ volume)Ordered By: Arnulfo Jose on 04-19-2025 Magnesium (Unsp spec) [Mass/Vol] 2.3 mg/dL High 1.5-2.2 [facility] Mean corpuscular hemoglobin (MCH) determinationOrdered By: Arnulfo Jose on 04-19-2025 MCH (RBC) [Entitic mass] 30.0 pg 27.0-32.0 [facility] Measurement, pHOrdered By: Nadeem Henson on 04-19-2025 pH (Unsp spec) 7.44 [pH] 7.35-7.45 [facility] pH (Unsp spec) 7.45 [pH] 7.35-7.45 [facility] Monocyte percentageOrdered B y: Arnulfo Jose on 04-19-2025 Monocytes/100 WBC (Bld) 5.7 % 0-10 [facility] Mucus LM Ql (Urine sed)Order ed By: Nancy Henson on 04-19-2025 Mucus Ql (Urine sed) 0 SEEN /hpf [facility] Natriuretic peptide.B prohor katja N-Terminal [Mass/volume] in Serum or PlasmaOrdered By: Nancy Henson on 04-19-2025 Natriuretic peptide.B prohormone N-Terminal [Mass/Vol] 63335 pg/mL High <1800 [facility] Natriuretic peptide.B prohor katja N-Terminal [Mass/volume] in Serum or PlasmaOrdered By: Arnulfo Jose on 04-19-2025 Natriuretic peptide.B prohormone N-Terminal [Mass/Vol] 23701 pg/mL High <1800 [facility] Neutrophil percentageOrdered By: Arnulfo Jose on 04-19-2025 Neutrophils/100 WBC (Bld) 82.3 % High 47-70 [facility] Nitrite Test strip Ql (U)Ord ered By: Nancy Henson on 04-19-2025 Nitrite Ql (U) Negative Negative [facility] No Panel InformationOrdered By: Nancy Henson on 04-19-2025 ART [facility] L Radial [facility] Not entered [facility] AIRVO [facility] AIRVO 50L 50% [facility] ART [facility] L Radial [facility] Not entered [facility] HFNC [facility] Phosphoruson 04-19-2025 Phosphate [Mass/Vol] 4.0 mg/dL Normal 2.7-4.5 [facility] Comment on above: Performed By: #### L 501.9985, L100.0100, L501.2300 ####[facility] [address] [place], [address] Platelet countOrdered By: Stephenie Jose on 04-19-2025 Platelets (Bld) [#/Vol] 289 10*3/uL 150-450 [facility] Potassium measurement (mass/ volume)Ordered By: Arnulfo Jose on 04-19-2025 Potassium (Unsp spec) [Mass/Vol] 5.9 mmol/L High 3.3-5.1 [facility] Procalcitonin [Mass/volume] in Serum or Plasma by ImmunoassayOrdered By: Anrulfo Jose on 04-19-2025 Procalcitonin IA [Mass/Vol] 0.10 ng/mL <0.11 [facility] Protein Test strip Ql (U)Ord ered By: Nancy Henson on 04-19-2025 Protein Ql (U) 30 mg/dl High Negative [facility] RBC Auto (Bld) [#/Vol]Ordere d By: Arnulfo Jose on 04-19-2025 RBC (Bld) [#/Vol] 2.93 10*6/uL Low 4.6-6.2 [facility] Serum creatinine measurement (mass/volume)Ordered By: Arnulfo Jose on 04-19-2025 Creatinine [Mass/Vol] 2.73 mg/dL High 0.70-1.20 [facility] Serum glucose measurement (m ass/volume)Ordered By: Arnulfo Jose on 04-19-2025 Glucose [Mass/Vol] 406 mg/dL High 70-99 [facility] Serum or plasma calcium nikkie urement (mass/volume)Ordered By: Arnulfo Jose on 04-19-2025 Calcium [Mass/Vol] 8.6 mg/dL 7.6-11.0 [facility] Serum or plasma urea nitroge n measurement (mass/volume)Ordered By: Arnulfo Jose on 04-19-2025 Urea nitrogen [Mass/Vol] 65 mg/dL High 4-19 [facility] Sodium levelOrdered By: Tyree Jose on 04-19-2025 Sodium [Moles/Vol] 136 mmol/L 133-145 [facility] Squamous epithelial cells de tection in urine sediment by light microscopyOrdered By: Nancy Henson on 04-19-2025 Epithelial cells.squamous LM Ql (Urine sed) 0 SEEN /hpf 0-5 [facility] TSH DL <= 0.005 mIU/L QnOrde red By: Nancy Henson on 04-19-2025 TSH Qn 1.730 uIU/mL 0.300-4.200 [facility] Thyroid Stim Hormone (TSH)on 04-19-2025 TSH 1.730 uIU/mL Normal 0.300-4.200 [facility] Comment on above: Performed By: #### L 503.7505, L501.9520, L500.4050 ####[facility] [address] [place], [address] Total carbon dioxide measure mentOrdered By: Nancy Henson on 04-19-2025 CO2 [Moles/Vol] 23 mmol/L [facility] CO2 [Moles/Vol] 23 mmol/L [facility] Troponin T.cardiac [Mass/vol ume] in Serum or Plasma by High sensitivity methodOrdered By: Nancy Henson on 04-19-2025 Troponin T.cardiac High sensitivity method [Mass/Vol] 350 ng/L High <22 [facility] Troponin T.cardiac High sensitivity method [Mass/Vol] 385 ng/L High <22 [facility] Troponin T.cardiac High sensitivity method [Mass/Vol] 394 ng/L High <22 [facility] Type AND Screenon 04-19-2025 Ab SCREEN GEL Negative Normal [facility] Comment on above: Order Comment: A Performed By: #### B TS ####[facility] [address] [place], [address] Urinalysis, Completeon 04-19 BACTERIA 0 SEEN Normal None Seen [facility] Comment on above: Order Comment: CLEAN CATCH Performed By: #### L 400.0001 ####[facility] [address] [place], [address] EPI,SQUAMOUS 0 SEEN Normal 0-5 [facility] Comment on above: Order Comment: CLEAN CATCH Performed By: #### L 400.0001 ####[facility] [address] [place], [address] Mucus Ql (Urine sed) 0 SEEN Normal [facility] Comment on above: Order Comment: CLEAN CATCH Performed By: #### L 400.0001 ####[facility] [address] [place], [address] RBC 0 SEEN Normal 0-5 [facility] Comment on above: Order Comment: CLEAN CATCH Performed By: #### L 400.0001 ####[facility] [address] [place], [address] WBC 0 SEEN Normal 0-5 [facility] Comment on above: Order Comment: CLEAN CATCH Performed By: #### L 400.0001 ####[facility] [address] [place], [address] Urine clarityOrdered By: Saravanan Henson on 04-19-2025 Clarity (U) Clear Clear [facility] Urine color determinationOrd ered By: Nancy Henson on 04-19-2025 Color (U) Yellow Yellow [facility] Urine glucose detectionOrder ed By: Nancy Henson on 04-19-2025 Glucose Ql (U) 250 mg/dl High Normal [facility] Urine leukocyte esterase det ection by dipstickOrdered By: Nancy Henson on 04-19-2025 Leukocyte esterase Test strip Ql (U) Negative Negative [facility] Urine pHOrdered By: Nancy brooks on 04-19-2025 pH (U) 6.0 [pH] 5.0 - 8.0 [facility] Urine sediment bacteria coun t by microscopy (number/high power field)Ordered By: Nancy Henson on 04-19-2025 Bacteria LM.HPF (Urine sed) [#/Area] 0 /[HPF] None Seen [facility] Urine specific gravity measu rementOrdered By: Nancy Henson on 04-19-2025 Specific gravity (U) [Rel density] 1.015 1.002-1.030 [facility] Urine urobilinogen measureme ntOrdered By: Nancy Henson on 04-19-2025 Urobilinogen Ql (U) Normal mg/dl Normal [facility] Venous Duplex US - Karin Extre mon 04-19-2025 Venous Duplex US - Karin Extrem Normal [facility] Venous duplex ultrasound rep ortOrdered By: Oracio Payan on 04-19-2025 US Vein [facility] Other Phone: White blood cell (WBC) count Ordered By: Arnulfo Jose on 04-19-2025 WBC (Bld) [#/Vol] 14.0 10*3/uL High 4.4-11.0 [facility] White blood cell countOrdere d By: Nancy Henson on 04-19-2025 White blood cell count 0 SEEN /hpf 0-5 [facility] CBC W/Diff, Automatedon 04-01 Absolute Neut Normal 2.0-7.7 [facility] Comment on above: Result Comment: Canc elled via OM: Order cancelled - Patient discharged Performed By: #### L 100.0100 ####[facility] [address] [place], [address] HCT Normal 40-54 [facility] Comment on above: Result Comment: Canc elled via OM: Order cancelled - Patient discharged Performed By: #### L 100.0100 ####[facility] [address] [place], [address] HGB Normal 13.0-16.5 [facility] Comment on above: Result Comment: Canc elled via OM: Order cancelled - Patient discharged Performed By: #### L 100.0100 ####[facility] [address] [place], [address] MCH Normal 27.0-32.0 [facility] Comment on above: Result Comment: Canc elled via OM: Order cancelled - Patient discharged Performed By: #### L 100.0100 ####[facility] [address] [place], [address] MCHC Normal 32-36 [facility] Comment on above: Result Comment: Canc elled via OM: Order cancelled - Patient discharged Performed By: #### L 100.0100 ####[facility] [address] [place], [address] MCV Normal 80-94 [facility] Comment on above: Result Comment: Canc elled via OM: Order cancelled - Patient discharged Performed By: #### L 100.0100 ####[facility] [address] [place], [address] NEUT% Normal 47-70 [facility] Comment on above: Result Comment: Canc elled via OM: Order cancelled - Patient discharged Performed By: #### L 100.0100 ####[facility] [address] [place], [address] PLT Normal 150-450 [facility] Comment on above: Result Comment: Canc elled via OM: Order cancelled - Patient discharged Performed By: #### L 100.0100 ####[facility] [address] [place], [address] RBC Normal 4.6-6.2 [facility] Comment on above: Result Comment: Canc elled via OM: Order cancelled - Patient discharged Performed By: #### L 100.0100 ####[facility] [address] [place], [address] RDW CV Normal 11.6-14.6 [facility] Comment on above: Result Comment: Canc elled via OM: Order cancelled - Patient discharged Performed By: #### L 100.0100 ####[facility] [address] [place], [address] RDW SD Normal 35.1-43.9 [facility] Comment on above: Result Comment: Canc elled via OM: Order cancelled - Patient discharged Performed By: #### L 100.0100 ####[facility] [address] [place], [address] WBC Normal 4.4-11.0 [facility] Comment on above: Result Comment: Canc elled via OM: Order cancelled - Patient discharged Performed By: #### L 100.0100 ####[facility] [address] [place], [address] Absolute lymphocyte countOrd ered By: Grace Arnold on 04-10-2025 Lymphocytes Auto (Unsp spec) [#/Vol] 1.09 10*3/uL 0.83-4.51 [facility] Absolute neutrophil countOrd ered By: Grace Arnold on 04-10-2025 Neutrophils (Bld) [#/Vol] 9.6 10*3/uL High 2.0-7.7 [facility] Anion gap in Serum or Plasma Ordered By: Grace Arnold on 04-10-2025 Anion gap [Moles/Vol] 13 mmol/L 5-15 [facility] Automated lymphocyte count a s percentage of total leukocytesOrdered By: Grace Arnold on 04-10-2025 Lymphocytes/100 WBC Auto (Unsp spec) 9.4 % Low 19-41 [facility] BUN/creatinine ratioOrdered By: Grace Arnold on 04-10-2025 Urea nitrogen/Creatinine [Mass ratio] 22.8 mg/mg High - [facility] Basic Metabolic Profile (BMP )on 04-10-2025 BUN/CRE 22.8 RATIO High - [facility] Comment on above: Performed By: #### L 500.2500 ####[facility] [address] [place], [address] Calcium [Mass/Vol] 8.5 mg/dL Normal 7.6-11.0 [facility] Comment on above: Performed By: #### L 500.2500 ####[facility] [address] [place], [address] Chloride [Moles/Vol] 101 mmol/L Normal 98-108 [facility] Comment on above: Performed By: #### L 500.2500 ####[facility] [address] [place], [address] CO2 [Moles/Vol] 22.6 mmol/L Normal 21.0-32.0 [facility] Comment on above: Performed By: #### L 500.2500 ####[facility] [address] [place], [address] Creatinine [Mass/Vol] 3.48 mg/dL High 0.70-1.20 [facility] Comment on above: Performed By: #### L 500.2500 ####[facility] [address] [place], [address] ECRCL 15.24 ml/min Low 50-250 [facility] Comment on above: Performed By: #### L 500.2500 ####[facility] [address] [place], [address] GAP 13 Normal 5-15 [facility] Comment on above: Performed By: #### L 500.2500 ####[facility] [address] [place], [address] GFR/1.73 sq M.predicted among non-blacks MDRD (S/P/Bld) [Vol rate/Area] 17 mL/min/{1.73_m2} Low >60 [place] Comment on above: Result Comment: mL/m in/1.73m2 CKD-EPI Creatinine Equation (2020) Performed By: #### L 500.2500 ####[facility] [address] [place], [address] Glucose [Mass/Vol] 287 mg/dL High 70-99 [facility] Comment on above: Performed By: #### L 500.2500 ####[facility] [address] [place], [address] Potassium [Moles/Vol] 4.2 mmol/L Normal 3.3-5.1 [facility] Comment on above: Performed By: #### L 500.2500 ####[facility] [address] [place], [address] Sodium [Moles/Vol] 137 mmol/L Normal 133-145 [facility] Comment on above: Performed By: #### L 500.2500 ####[facility] [address] [place], [address] Urea nitrogen [Mass/Vol] 79 mg/dL High 4-19 [facility] Comment on above: Performed By: #### L 500.2500 ####[facility] [address] [place], [address] Basophil percentageOrdered B y: Graceanabelle Arnold on 04-10-2025 Basophils/100 WBC (Bld) 0.1 % 0-1 [facility] Bedside Glucoseon 04-10-2025 FINGERSTICK GLU 223 mg/dL High 74-106 [facility] Comment on above: Result Comment: ADITI ESCOBEDO OF PATIENT CARE PER NURSING PROTOCOL Performed By: #### L 501.080 ####[facility] [address] [place], [address] FINGERSTICK GLU 274 mg/dL High 74-106 [facility] Comment on above: Result Comment: ADITI ESCOBEDO OF PATIENT CARE PER NURSING PROTOCOL Performed By: #### L 501.080 ####[facility] [address] [place], [address] CBC W/Diff, Automatedon 06-1 0-2025 Absolute Lymph 1.09 X10 3/uL Normal 0.83-4.51 [facility] Comment on above: Performed By: #### L 100.0100 ####[facility] [address] [place], [address] Absolute Neut 9.6 X10 3/uL High 2.0-7.7 [facility] Comment on above: Performed By: #### L 100.0100 ####[facility] [address] [place], [address] Basophils/100 WBC (Bld) 0.1 % Normal 0-1 [facility] Comment on above: Performed By: #### L 100.0100 ####[facility] [address] [place], [address] Eosinophils/100 WBC (Bld) 0.1 % Normal 0-5 [facility] Comment on above: Performed By: #### L 100.0100 ####[facility] [address] [place], [address] Erythrocyte distribution width (RBC) [Ratio] 13.6 % Normal 11.6-14.6 [facility] Comment on above: Performed By: #### L 100.0100 ####[facility] [address] [place], [address] Hematocrit (Bld) [Volume fraction] 26.0 % Low 40-54 [facility] Comment on above: Performed By: #### L 100.0100 ####[facility] [address] [place], [address] Hemoglobin (Bld) [Mass/Vol] 8.6 g/dL Low 13.0-16.5 [facility] Comment on above: Performed By: #### L 100.0100 ####[facility] [address] [place], [address] IG% 0.800 Normal 0.0-0.9 [facility] Comment on above: Result Comment: IG% - Immature Granulocytes (promyelocytes, myelocytes andmetamyelocytes) > 1% indicates that a LEFT SHIFT is Present. Performed By: #### L 100.0100 ####[facility] [address] [place], [address] Lymphocytes/100 WBC (Bld) 9.4 % Low 19-41 [facility] Comment on above: Performed By: #### L 100.0100 ####[facility] [address] [place], [address] MCH (RBC) [Entitic mass] 30.2 pg Normal 27.0-32.0 [facility] Comment on above: Performed By: #### L 100.0100 ####[facility] [address] [place], [address] MCHC (RBC) [Mass/Vol] 33.1 g/dL Normal 32-36 [facility] Comment on above: Performed By: #### L 100.0100 ####[facility] [address] [place], [address] MCV (RBC) [Entitic vol] 91.2 fL Normal 80-94 [facility] Comment on above: Performed By: #### L 100.0100 ####[facility] [address] [place], [address] Monocytes/100 WBC (Bld) 7.0 % Normal 0-10 [facility] Comment on above: Performed By: #### L 100.0100 ####[facility] [address] [place], [address] Neutrophils/100 WBC (Bld) 82.6 % High 47-70 [facility] Comment on above: Performed By: #### L 100.0100 ####[facility] [address] [place], [address] Nucleated RBC (Bld) [#/Vol] 0 10*3/uL Normal 0-5 [facility] Comment on above: Performed By: #### L 100.0100 ####[facility] [address] [place], [address] Platelet mean volume (Bld) [Entitic vol] 12.4 fL High 6.2-12.0 [facility] Comment on above: Performed By: #### L 100.0100 ####[facility] [address] [place], [address] Platelets (Bld) [#/Vol] 193 10*3/uL Normal 150-450 [facility] Comment on above: Performed By: #### L 100.0100 ####[facility] [address] [place], [address] RBC (Bld) [#/Vol] 2.85 10*6/uL Low 4.6-6.2 [facility] Comment on above: Performed By: #### L 100.0100 ####[facility] [address] [place], [address] RDW SD 45.1 fl High 35.1-43.9 [facility] Comment on above: Performed By: #### L 100.0100 ####[facility] [address] [place], [address] WBC (Bld) [#/Vol] 11.6 10*3/uL High 4.4-11.0 [facility] Comment on above: Performed By: #### L 100.0100 ####[facility] [address] [place], [address] Carbon dioxide, total [Moles /volume] in Central venous bloodOrdered By: Grace Arnold on 04-10-2025 CO2 [Moles/Vol] 22.6 mmol/L 21.0-32.0 [facility] Chloride assayOrdered By: Na na Florentino on 04-10-2025 Chloride [Moles/Vol] 101 mmol/L 98-108 [facility] Discharge Instructionon 04-01 Discharge Instruction Normal [facility] Eosinophil percentageOrdered By: Grace Arnold on 04-10-2025 Eosinophils/100 WBC (Bld) 0.1 % 0-5 [facility] Erythrocyte distribution wid th ratioOrdered By: Grace Arnold on 04-10-2025 Erythrocyte distribution width (RBC) [Ratio] 13.6 % 11.6-14.6 [facility] Erythrocyte distribution wid th standard deviationOrdered By: Grace Arnold on 04-10-2025 Erythrocyte distribution width (RBC) [Ratio] 45.1 fl High 35.1-43.9 [facility] Glomerular filtration rate ( GFR) estimation/1.73 sq m using serum, plasma, or whole bOrdered By: Grace Arnold on 04-10-2025 GFR/1.73 sq M.predicted among non-blacks MDRD (S/P/Bld) [Vol rate/Area] 17 mL/min/{1.73_m2} Low >60 [place] Comment on above: mL/min/1.73m2 CKD-EP I Creatinine Equation (2020) [facility]: Grace Arnold on 04-10-2025 Glucose [Mass/Vol] 223 mg/dL High 74-106 [facility] Comment on above: MANAGEMENT OF PATIEN T CARE PER NURSING PROTOCOL Hematocrit Auto (Bld) [Volum e fraction]Ordered By: Grace Arnold on 04-10-2025 Hematocrit (Bld) [Volume fraction] 26.0 % Low 40-54 [facility] Hemoglobin measurementOrdere d By: Grace Arnold on 04-10-2025 Hemoglobin (Bld) [Mass/Vol] 8.6 g/dL Low 13.0-16.5 [facility] Immature granulocytes/100 WB C Auto (Bld)Ordered By: Grace Arnold on 04-10-2025 Immature granulocytes/100 WBC (Bld) 0.800 % 0.0-0.9 [facility] Comment on above: IG% - Immature Granu locytes (promyelocytes, myelocytes and metamyelocytes) > 1% indicates that a LEFT SHIFT is Present. MCV (mean corpuscular volume ) determinationOrdered By: Grace Arnold on 04-10-2025 MCV (RBC) [Entitic vol] 91.2 fL 80-94 [facility] Mean corpuscular hemoglobin (MCH) determinationOrdered By: Grace Arnold on 04-10-2025 MCH (RBC) [Entitic mass] 30.2 pg 27.0-32.0 [facility] Mean corpuscular hemoglobin concentration (MCHC) determinationOrdered By: Grace Arnold on 04-10-2025 MCHC (RBC) [Mass/Vol] 33.1 g/dL 32-36 [facility] Mean platelet volume determi nationOrdered By: Grace Arnold on 04-10-2025 Platelet mean volume (Bld) [Entitic vol] 12.4 fL High 6.2-12.0 [facility] Monocyte percentageOrdered B y: Grace Arnold on 04-10-2025 Monocytes/100 WBC (Bld) 7.0 % 0-10 [facility] Neutrophil percentageOrdered By: Grace Arnold on 04-10-2025 Neutrophils/100 WBC (Bld) 82.6 % High 47-70 [facility] Nucleated red blood cell per centageOrdered By: Grace Arnold on 04-10-2025 Nucleated RBC/100 WBC (Bld) [Ratio] 0 % 0-5 [facility] Platelet countOrdered By: Kesha Arnold on 04-10-2025 Platelets (Bld) [#/Vol] 193 10*3/uL 150-450 [facility] Potassium measurement (mass/ volume)Ordered By: Grace Arnold on 04-10-2025 Potassium (Unsp spec) [Mass/Vol] 4.2 mmol/L 3.3-5.1 [facility] RBC Auto (Bld) [#/Vol]Ordere d By: Graceanabelle Arnold on 04-10-2025 RBC (Bld) [#/Vol] 2.85 10*6/uL Low 4.6-6.2 [facility] Serum creatinine measurement (mass/volume)Ordered By: Grace Arnold on 04-10-2025 Creatinine [Mass/Vol] 3.48 mg/dL High 0.70-1.20 [facility] Serum glucose measurement (m ass/volume)Ordered By: Grace Arnold on 04-10-2025 Glucose [Mass/Vol] 287 mg/dL High 70-99 [facility] Serum or plasma calcium nikkie urement (mass/volume)Ordered By: Grace Arnold on 04-10-2025 Calcium [Mass/Vol] 8.5 mg/dL 7.6-11.0 [facility] Serum or plasma urea nitroge n measurement (mass/volume)Ordered By: Grace Arnold on 04-10-2025 Urea nitrogen [Mass/Vol] 79 mg/dL High 4-19 [facility] Sodium levelOrdered By: Grace Arnold on 04-10-2025 Sodium [Moles/Vol] 137 mmol/L 133-145 [facility] White blood cell (WBC) count Ordered By: Grace Arnold on 04-10-2025 WBC (Bld) [#/Vol] 11.6 10*3/uL High 4.4-11.0 [facility] ANCAon 04-09-2025 Atypical pANCA <1:20 Normal Neg:<1:20 [facility] Comment on above: Result Comment: The atypical pANCA pattern has been observed in asignificant percentage of patients with ulcerative colitis,primary sclerosing cholangitis and autoimmune hepatitis.Performed at: - [facility] [address] [id number] Director: Todd Anderson PhD, Phone: [phone] Performed By: #### L 3034.2315 ####[facility] [address] [place], [place], [id number] Cytoplasmic Ab <1:20 Normal Neg:<1:20 [facility] Comment on above: Performed By: #### L 3300.1200 ####[facility] [address] [place], [address] Perinuclear Ab. <1:20 Normal Neg:<1:20 [facility] Comment on above: Result Comment: The presence [...] only by EIA. Ref. AM J Clin Azvmih6032;111:[id number]. Performed By: #### L 3300.1200 ####[facility] [address] [place], [address] Anti-Glomerular Basement Mem bon 04-09-2025 ANTI-GLOM BM Ab < 0.2 Normal 0.0-0.9 [facility] Comment on above: Result Comment: Perf ormed at: - [facility] [id number] Director: Mignon Taylor MD, Phone: [phone] Performed By: #### L 6061.2948 ####[facility] [address] [place], [address] Basic Metabolic Profile (BMP )on 04-09-2025 BUN/CRE 21.8 RATIO High 10-20 [facility] Comment on above: Performed By: #### L 500.2500 ####[facility] [address] [place], [address] Calcium [Mass/Vol] 8.5 mg/dL Normal 7.6-11.0 [facility] Comment on above: Performed By: #### L 500.2500 ####[facility] [address] [place], [address] Chloride [Moles/Vol] 104 mmol/L Normal 98-108 [facility] Comment on above: Performed By: #### L 500.2500 ####[facility] [address] [place], [address] CO2 [Moles/Vol] 21.6 mmol/L Normal 21.0-32.0 [facility] Comment on above: Performed By: #### L 500.2500 ####[facility] [address] [place], [address] Creatinine [Mass/Vol] 3.42 mg/dL High 0.70-1.20 [facility] Comment on above: Performed By: #### L 500.2500 ####[facility] [address] [place], [address] ECRCL 15.55 ml/min Low 50-250 [facility] Comment on above: Performed By: #### L 500.2500 ####[facility] [address] [place], [address] GAP 15 Normal 5-15 [facility] Comment on above: Performed By: #### L 500.2500 ####[facility] [address] [place], [address] GFR/1.73 sq M.predicted among non-blacks MDRD (S/P/Bld) [Vol rate/Area] 17 mL/min/{1.73_m2} Low >60 [place] Comment on above: Result Comment: mL/m in/1.73m2 CKD-EPI Creatinine Equation (2020) Performed By: #### L 500.2500 ####[facility] [address] [place], [address] Glucose [Mass/Vol] 146 mg/dL High 70-99 [facility] Comment on above: Performed By: #### L 500.2500 ####[facility] [address] [place], [address] Potassium [Moles/Vol] 3.4 mmol/L Normal 3.3-5.1 [facility] Comment on above: Performed By: #### L 500.2500 ####[facility] [address] [place], [address] Sodium [Moles/Vol] 140 mmol/L Normal 133-145 [facility] Comment on above: Performed By: #### L 500.2500 ####[facility] [address] [place], [address] Urea nitrogen [Mass/Vol] 74 mg/dL High 4-19 [facility] Comment on above: Performed By: #### L 500.2500 ####[facility] [address] [place], [address] Bedside Glucoseon 04-09-2025 FINGERSTICK GLU 423 mg/dL High 74-106 [facility] Comment on above: Result Comment: ADITI GEMENT OF PATIENT CARE PER NURSING PROTOCOL Performed By: #### L 501.080 ####[facility] [address] [place], [address] FINGERSTICK GLU 217 mg/dL High 74-106 [facility] Comment on above: Result Comment: ADITI GEMENT OF PATIENT CARE PER NURSING PROTOCOL Performed By: #### L 501.080 ####[facility] [address] [place], [address] FINGERSTICK GLU 146 mg/dL High 74-106 [facility] Comment on above: Result Comment: ADITI GEMENT OF PATIENT CARE PER NURSING PROTOCOL Performed By: #### L 501.080 ####[facility] [address] [place], [address] FINGERSTICK GLU 141 mg/dL High 74-106 [facility] Comment on above: Result Comment: ADITI GEMENT OF PATIENT CARE PER NURSING PROTOCOL Performed By: #### L 501.080 ####[facility] [address] [place], [address] FINGERSTICK GLU 475 mg/dL Invalid Interpretation Code 74-106 [facility] Comment on above: Result Comment: ADITI GEMENT OF PATIENT CARE PER NURSING PROTOCOL Performed By: #### L 501.080 ####[facility] [address], [address] FINGERSTICK GLU 312 mg/dL High 74-106 [facility] Comment on above: Result Comment: ADITI GEMENT OF PATIENT CARE PER NURSING PROTOCOL Performed By: #### L 501.080 ####[facility] [address] [place], [address] FINGERSTICK GLU 443 mg/dL High 74-106 [facility] Comment on above: Result Comment: ADITI GEMENT OF PATIENT CARE PER NURSING PROTOCOL Performed By: #### L 501.080 ####[facility] [address] [place], [address] CBC W/Diff, Automatedon 06-0 9-2025 Absolute Lymph 1.84 X10 3/uL Normal 0.83-4.51 [facility] Comment on above: Performed By: #### L 100.0100 ####[facility] [address] [place], [address] Absolute Neut 10.1 X10 3/uL High 2.0-7.7 [facility] Comment on above: Performed By: #### L 100.0100 ####[facility] [address] [place], [address] Basophils/100 WBC (Bld) 0.1 % Normal 0-1 [facility] Comment on above: Performed By: #### L 100.0100 ####[facility] [address] [place], [address] Eosinophils/100 WBC (Bld) 0.1 % Normal 0-5 [facility] Comment on above: Performed By: #### L 100.0100 ####[facility] [address] [place], [address] Erythrocyte distribution width (RBC) [Ratio] 14.0 % Normal 11.6-14.6 [facility] Comment on above: Performed By: #### L 100.0100 ####[facility] [address] [place], [address] Hematocrit (Bld) [Volume fraction] 25.5 % Low 40-54 [facility] Comment on above: Performed By: #### L 100.0100 ####[facility] [address] [place], [address] Hemoglobin (Bld) [Mass/Vol] 8.7 g/dL Low 13.0-16.5 [facility] Comment on above: Performed By: #### L 100.0100 ####[facility] [address] [place], [address] IG% 0.700 Normal 0.0-0.9 [facility] Comment on above: Result Comment: IG% - Immature Granulocytes (promyelocytes, myelocytes andmetamyelocytes) > 1% indicates that a LEFT SHIFT is Present. Performed By: #### L 100.0100 ####[facility] [address] [place], [address] Lymphocytes/100 WBC (Bld) 14.1 % Low 19-41 [facility] Comment on above: Performed By: #### L 100.0100 ####[facility] [address] [place], [address] MCH (RBC) [Entitic mass] 30.2 pg Normal 27.0-32.0 [facility] Comment on above: Performed By: #### L 100.0100 ####[facility] [address] [place], [address] MCHC (RBC) [Mass/Vol] 34.1 g/dL Normal 32-36 [facility] Comment on above: Performed By: #### L 100.0100 ####[facility] [address] [place], [address] MCV (RBC) [Entitic vol] 88.5 fL Normal 80-94 [facility] Comment on above: Performed By: #### L 100.0100 ####[facility] [address] [place], [address] Monocytes/100 WBC (Bld) 7.4 % Normal 0-10 [facility] Comment on above: Performed By: #### L 100.0100 ####[facility] [address] [place], [address] Neutrophils/100 WBC (Bld) 77.6 % High 47-70 [facility] Comment on above: Performed By: #### L 100.0100 ####[facility] [address] [place], [address] Nucleated RBC (Bld) [#/Vol] 0 10*3/uL Normal 0-5 [facility] Comment on above: Performed By: #### L 100.0100 ####[facility] [address] [place], [address] Platelet mean volume (Bld) [Entitic vol] 12.0 fL Normal 6.2-12.0 [facility] Comment on above: Performed By: #### L 100.0100 ####[facility] [address] [place], [address] Platelets (Bld) [#/Vol] 191 10*3/uL Normal 150-450 [facility] Comment on above: Performed By: #### L 100.0100 ####[facility] [address] [place], [address] RBC (Bld) [#/Vol] 2.88 10*6/uL Low 4.6-6.2 [facility] Comment on above: Performed By: #### L 100.0100 ####[facility] [address] [place], [address] RDW SD 45.6 fl High 35.1-43.9 [facility] Comment on above: Performed By: #### L 100.0100 ####[facility] [address] [place], [address] WBC (Bld) [#/Vol] 13.0 10*3/uL High 4.4-11.0 [facility] Comment on above: Performed By: #### L 100.0100 ####[facility] [address] [place], [address] Electrocardiogram reportOrde red By: Barbie Martin on 04-09-2025 EKG study [facility] [address] [place] [address] 12 Lead EKG 04/04/25 2112 MR#: [id number] Acct: [id number] Name: ENOC ARMANDO Rep #:[id number] : 1945 79 From: Barbie black MD [...] IS UNCONFIRMED Confirmed by VERONICA URIBE, MINERVA ([id number]), script editor BLANCO BOCANEGRA ([id number]) 04/09/2025 7:17:16 AM Referred By: Confirmed By: MINERVA MARTIN MD 04/09/25716 Date _ Barbie Martin MD CC: Dr. Ryley Jeter MD; Dr. Grace Anrold MD ~ Signed [facility] Work Phone: EKG study [facility] [address] [place] [address] 12 Lead EKG 04/04/252111 MR#: [id number] Acct: [id number] Name: ENOC ARMANDO Rep #:[id number] : 1945 79 From: Barbie black MD Attending Dr: Dr. Grace Arnold MD Status: ADM IN Ordering Dr: Grace Arnold MD Date: 04/04/25 Location: [facility] Sex: M C Admitted: 04/03/25 Test [...] VERONICA URIBE, MINERVA ([id number]), script editor BLANCO BOCANERGA ([id number]) on04/09/2025 7:17:37 AM Referred By: Confirmed By: MINERVA MARTIN MD 04/09/25716 Date _ Barbie Martin MD CC: Dr. Ryley Jeter MD; Dr. Grace Arnold MD ~ Signed [facility] Work Phone: EKG study [facility] [address] [place] [address] 12 Lead EKG 04/04/25 210 MR#: [id number] Acct: [id number] Name: ENOC ARMANDO Rep #:[id number] : 1945 79 From: Barbie black MD Attending Dr: Dr. Grace Arnold MD Status: ADM IN Ordering Dr: Grace Arnold MD Date: 04/04/25 Location: [facility] Sex: M C Admitted: 04/03/25 Test Reason : Blood Pressure : */* mmHG Vent. Rate : 57 BPM Atrial Rate : 57 BPM P-R Int : 200 ms QRS Dur : 100 ms QT Int : 462 ms P-R-T Axes : 62 0 194 degrees QTcB Int : 449 ms Sinus bradycardia Left ventricular hypertrophy with repolarization abnormality ( [place] product ) Cannot rule out Septal infarct , age undetermined Abnormal ECG No previous ECGs available Confirmed by VERONICA URIBE, MINERVA ([id number]), script editor BLANCO BOCANEGRA ([id number]) on04/09/2025 7:17:54 AM Referred By: Confirmed By: MINERVA MARTIN MD 04/09/25 0717 Date _ Barbie Martin MD CC: Dr. Ryley Jeter MD; Dr. Grace Arnold MD ~ Signed [facility] Work Phone: EKG study [facility] [address] [place] [address] 12 Lead EKG 04/03/25 0005 MR#: [id number] Acct: [id number] Name: ENOC ARMANDO Rep #:[id number] : 1945 79 From: Barbie black MD Attending Dr: Dr. Jose Moore MD Status: ADM IN Ordering Dr: John [place] DO Date: 0 04/03/25 Location: [facility] Sex: M C Admitted: 04/03/25 Test [...] ECG Confirmed by VERONICA URIBE, MINERVA ([id number]), script editor BLANCO BOCANEGRA ([id number]) on04/09/2025 7:03:07 AM Referred By: Confirmed By: MINERVA MARTIN MD 04/09/25 0703 Date _ Barbie Martin MD CC: Dr. Ryley Jeter MD; Dr. Jose Moore MD; Dr. John [place] DO ~ Signed [facility] Work Phone: EKG study [facility] Cardi[facility] Services [address] [place] [address] 12 Lead EKG 04/05/25 1204 MR#: [id number] Acct: [id number] Name: ENOC ARMANDO Rep #:[id number] : 1945 79 From: Barbie black MD Attending Dr: Dr. Jose Moore MD Status: ADM IN Ordering Dr: Grace Arnold MD Date: 04/05/25 Location: [facility] Sex: M C Admitted: 04/03/25 Test [...] IS UNCONFIRMED Confirmed by VERONICA URIBE, MINERVA ([id number]), script editor BLANCO BOCANEGRA ([id number]) on04/09/2025 6:57:50 AM Referred By: FLORENTINO Confirmed By: MINERVA MARTIN MD 04/09/25 0657 Date _ Barbie Martin MD CC: Dr. Ryley Jeter MD; Dr. Grcae Arnold MD; Dr. Jose Moore MD ~ Signed [facility] Work Phone: Gram Stainon 04-09-2025 GS Acceptable Specimen? Yes (<25 Epithelial cells per/lpf) Gram Stain 2+ Yeast Like Organisms 2+ Gram positive cocci 1+ Gram positive rods Normal [facility] Comment on above: Performed By: #### M 100.2400, M100.2000 ####[facility] [address] [place], [place], [address] Stool Occult Blood iFOBon STOB Positive Normal [facility] Comment on above: Performed By: #### M 100.7900 ####[facility] [address] [place], [place], [address] Stool gastrointestinal hemog lobin detection by immunologic methodOrdered By: Jose Moore on 04-09-2025 Lower GI hemoglobin IA Ql (Stl) Positive Abnormal [facility] BRCon 04-08-2025 RC Normal Neg [facility] Comment on above: Result Comment: [id number] AP RC TRANSFUSED 04/08/25 1032 Performed By: #### B RC, BTS ####[facility] [address] [place], [place], [address] Basic Metabolic Profile (BMP )on 04-08-2025 BUN/CRE 20.8 RATIO High 10-20 [facility] Comment on above: Performed By: #### L 500.2500 ####[facility] [address] [place], [address] Calcium [Mass/Vol] 8.5 mg/dL Normal 7.6-11.0 [facility] Comment on above: Performed By: #### L 500.2500 ####[facility] [address], [address] Chloride [Moles/Vol] 100 mmol/L Normal 98-108 [facility] Comment on above: Performed By: #### L 500.2500 ####[facility] [address] [place], [address] CO2 [Moles/Vol] 20.3 mmol/L Low 21.0-32.0 [facility] Comment on above: Performed By: #### L 500.2500 ####[facility] [address] [place], [address] Creatinine [Mass/Vol] 2.97 mg/dL High 0.70-1.20 [facility] Comment on above: Performed By: #### L 500.2500 ####[facility] [address] [place], [address] ECRCL 16.83 ml/min Low 50-250 [facility] Comment on above: Performed By: #### L 500.2500 ####[facility] [address] [place], [address] GAP 16 High 5-15 [facility] Comment on above: Performed By: #### L 500.2500 ####[facility] [address] [place], [address] GFR/1.73 sq M.predicted among non-blacks MDRD (S/P/Bld) [Vol rate/Area] 20 mL/min/{1.73_m2} Low >60 [place] Comment on above: Result Comment: mL/m in/1.73m2 CKD-EPI Creatinine Equation (2020) Performed By: #### L 500.2500 ####[facility] [address] [place], [address] Glucose [Mass/Vol] 395 mg/dL High 70-99 [facility] Comment on above: Performed By: #### L 500.2500 ####[facility] [address] [place], [address] Potassium [Moles/Vol] 4.3 mmol/L Normal 3.3-5.1 [facility] Comment on above: Performed By: #### L 500.2500 ####[facility] [address] [place], [address] Sodium [Moles/Vol] 136 mmol/L Normal 133-145 [facility] Comment on above: Performed By: #### L 500.2500 ####[facility] [address] [place], [address] Urea nitrogen [Mass/Vol] 62 mg/dL High 4-19 [facility] Comment on above: Performed By: #### L 500.2500 ####[facility] [address] [place], [address] Bedside Glucoseon 04-08-2025 FINGERSTICK GLU 415 mg/dL High 74-106 [facility] Comment on above: Result Comment: ADITI GEMENT OF PATIENT CARE PER NURSING PROTOCOL Performed By: #### L 501.080 ####[facility] [address] [place], [address] FINGERSTICK GLU 420 mg/dL High 74-106 [facility] Comment on above: Result Comment: ADITI GEMENT OF PATIENT CARE PER NURSING PROTOCOL Performed By: #### L 501.080 ####[facility] [address] [place], [address] FINGERSTICK GLU 361 mg/dL High 74-106 [facility] Comment on above: Result Comment: ADITI ESCOBEDO OF PATIENT CARE PER NURSING PROTOCOL Performed By: #### L 501.080 ####[facility] [address] [place], [address] CBC W/Diff, Automatedon 06-0 8-2024 Absolute Lymph 0.63 X10 3/uL Low 0.83-4.51 [facility] Comment on above: Performed By: #### L 100.0100 ####[facility] [address] [place], [address] Absolute Neut 7.6 X10 3/uL Normal 2.0-7.7 [facility] Comment on above: Performed By: #### L 100.0100 ####[facility] [address] [place], [address] Basophils/100 WBC (Bld) 0.0 % Normal 0-1 [facility] Comment on above: Performed By: #### L 100.0100 ####[facility] [address] [place], [address] Eosinophils/100 WBC (Bld) 0.0 % Normal 0-5 [facility] Comment on above: Performed By: #### L 100.0100 ####[facility] [address] [place], [address] Erythrocyte distribution width (RBC) [Ratio] 13.5 % Normal 11.6-14.6 [facility] Comment on above: Performed By: #### L 100.0100 ####[facility] [address] [place], [address] Hematocrit (Bld) [Volume fraction] 21.5 % Low 40-54 [facility] Comment on above: Performed By: #### L 100.0100 ####[facility] [address], [address] Hemoglobin (Bld) [Mass/Vol] 6.9 g/dL Low 13.0-16.5 [facility] Comment on above: Performed By: #### L 100.0100 ####[facility] [address] [place], [address] IG% 0.500 Normal 0.0-0.9 [facility] Comment on above: Result Comment: IG% - Immature Granulocytes (promyelocytes, myelocytes andmetamyelocytes) > 1% indicates that a LEFT SHIFT is Present. Performed By: #### L 100.0100 ####[facility] [address] [place], [address] Lymphocytes/100 WBC (Bld) 7.3 % Low 19-41 [facility] Comment on above: Performed By: #### L 100.0100 ####[facility] [address] [place], [address] MCH (RBC) [Entitic mass] 29.5 pg Normal 27.0-32.0 [facility] Comment on above: Performed By: #### L 100.0100 ####[facility] [address] [place], [address] MCHC (RBC) [Mass/Vol] 32.1 g/dL Normal 32-36 [facility] Comment on above: Performed By: #### L 100.0100 ####[facility] [address] [place], [address] MCV (RBC) [Entitic vol] 91.9 fL Normal 80-94 [facility] Comment on above: Performed By: #### L 100.0100 ####[facility] [address] [place], [address] Monocytes/100 WBC (Bld) 4.2 % Normal 0-10 [facility] Comment on above: Performed By: #### L 100.0100 ####[facility] [address] [place], [address] Neutrophils/100 WBC (Bld) 88.0 % High 47-70 [facility] Comment on above: Performed By: #### L 100.0100 ####[facility] [address] [place], [address] Nucleated RBC (Bld) [#/Vol] 0 10*3/uL Normal 0-5 [facility] Comment on above: Performed By: #### L 100.0100 ####[facility] [address] [place], [address] Platelet mean volume (Bld) [Entitic vol] 12.5 fL High 6.2-12.0 [facility] Comment on above: Performed By: #### L 100.0100 ####[facility] [address] [place], [address] Platelets (Bld) [#/Vol] 176 10*3/uL Normal 150-450 [facility] Comment on above: Performed By: #### L 100.0100 ####[facility] [address] [place], [address] RBC (Bld) [#/Vol] 2.34 10*6/uL Low 4.6-6.2 [facility] Comment on above: Performed By: #### L 100.0100 ####[facility] [address] [place], [address] RDW SD 44.2 fl High 35.1-43.9 [facility] Comment on above: Performed By: #### L 100.0100 ####[facility] [address] [place], [address] WBC (Bld) [#/Vol] 8.6 10*3/uL Normal 4.4-11.0 [facility] Comment on above: Performed By: #### L 100.0100 ####[facility] [address] [place], [address] Culture, Blood (WB)on 2024 CUB No growth in 5 days. Normal [facility] Comment on above: Performed By: #### L 503.6005, M200.1000 ####[facility] [address] [place], [address] Glucoseon 04-08-2025 Glucose [Mass/Vol] 528 mg/dL Invalid Interpretation Code 70-99 [facility] Comment on above: Result Comment: Crit ical Result(s) Called at 2220: by:??NBURNS TO EAFFOLTERResults read back by same. Performed By: #### L 501.0100 ####[facility] [address] [place], [address] Respiratory Cultureon 2024 RESPC Mixed normal respiratory kyler. No Streptococcus pneumoniae, beta-hemolytic Streptococcus or Staphylococcus aureus isolated. [facility] Comment on above: Performed By: #### M 100.2400, M100.2000 ####[facility] [address] [place], [address] Type AND Screenon 04-08-2025 ABO and Rh group Nom (Bld) Blood group A Rh(D) positive [facility] Comment on above: Order Comment: CMV N EG? NNumber of units to transfuse: 1Reason for Ordering Blood: AcuteAre the blood/blood products to be transfused? YIs the patient having/had surgery? Nany Hazel Performed By: #### B HOUSTON, BTS ####[facility] [address] [place], [address] Ab SCREEN GEL Negative [facility] Comment on above: Order Comment: CMV N EG? NNumber of units to transfuse: 1Reason for Ordering Blood: AcuteAre the blood/blood products to be transfused? YIs the patient having/had surgery? Nany Hazel Performed By: #### B RC, BTS ####[facility] [address] [place], [address] Basic Metabolic Profile (BMP )on 04-07-2025 BUN/CRE 22.1 RATIO High 10-20 [facility] Comment on above: Performed By: #### L 500.2500 ####[facility] [address] [place], [address] Calcium [Mass/Vol] 8.2 mg/dL Normal 7.6-11.0 [facility] Comment on above: Performed By: #### L 500.2500 ####[facility] [address] [place], [address] Chloride [Moles/Vol] 99 mmol/L Normal 98-108 [facility] Comment on above: Performed By: #### L 500.2500 ####[facility] [address] [place], [address] CO2 [Moles/Vol] 21.3 mmol/L Normal 21.0-32.0 [facility] Comment on above: Performed By: #### L 500.2500 ####[facility] [address] [place], [address] Creatinine [Mass/Vol] 3.61 mg/dL High 0.70-1.20 [facility] Comment on above: Performed By: #### L 500.2500 ####[facility] [address] [place], [address] ECRCL 14.50 ml/min Low 50-250 [facility] Comment on above: Performed By: #### L 500.2500 ####[facility] [address] [place], [address] GAP 16 High 5-15 [facility] Comment on above: Performed By: #### L 500.2500 ####[facility] [address] [place], [address] GFR/1.73 sq M.predicted among non-blacks MDRD (S/P/Bld) [Vol rate/Area] 16 mL/min/{1.73_m2} Low >60 [facility] Comment on above: Result Comment: mL/m in/1.73m2 CKD-EPI Creatinine Equation (2020) Performed By: #### L 500.2500 ####[facility] [address] [place], [address] Glucose [Mass/Vol] 423 mg/dL High 70-99 [facility] Comment on above: Performed By: #### L 500.2500 ####[facility] [address] [place], [address] Potassium [Moles/Vol] 4.3 mmol/L Normal 3.3-5.1 [facility] Comment on above: Performed By: #### L 500.2500 ####[facility] [address] [place], [address] Sodium [Moles/Vol] 137 mmol/L Normal 133-145 [facility] Comment on above: Performed By: #### L 500.2500 ####[facility] [address] [place], [address] Urea nitrogen [Mass/Vol] 80 mg/dL High 4-19 [facility] Comment on above: Performed By: #### L 500.2500 ####[facility] [address] [place], [address] Bedside Glucoseon 04-07-2025 FINGERSTICK GLU 402 mg/dL High 74-106 [facility] Comment on above: Result Comment: ADITI GEMENT OF PATIENT CARE PER NURSING PROTOCOL Performed By: #### L 501.080 ####[facility] [address] [place], [address] FINGERSTICK GLU 330 mg/dL High 74-106 [facility] Comment on above: Result Comment: ADITI GEMENT OF PATIENT CARE PER NURSING PROTOCOL Performed By: #### L 501.080 ####[facility] [address] [place], [address] FINGERSTICK GLU 333 mg/dL High 74-106 [facility] Comment on above: Result Comment: ADITI GEMENT OF PATIENT CARE PER NURSING PROTOCOL Performed By: #### L 501.080 ####[facility] [address], [address] FINGERSTICK GLU 392 mg/dL High 74-106 [facility] Comment on above: Result Comment: AIDTI GEMENT OF PATIENT CARE PER NURSING PROTOCOL Performed By: #### L 501.080 ####[facility] [address] [place], [address] FINGERSTICK GLU 280 mg/dL High 74-106 [facility] Comment on above: Result Comment: ADITI GEMENT OF PATIENT CARE PER NURSING PROTOCOL Performed By: #### L 501.080 ####[facility] [address] [place], [address] CBC W/Diff, Automatedon 06-0 7-2024 Absolute Lymph 1.30 X10 3/uL Normal 0.83-4.51 [facility] Comment on above: Performed By: #### L 100.0100 ####[facility] [address] [place], [address] Absolute Neut 8.2 X10 3/uL High 2.0-7.7 [facility] Comment on above: Performed By: #### L 100.0100 ####[facility] [address] [place], [address] Basophils/100 WBC (Bld) 0.0 % Normal 0-1 [facility] Comment on above: Performed By: #### L 100.0100 ####[facility] [address] [place], [address] Eosinophils/100 WBC (Bld) 0.1 % Normal 0-5 [facility] Comment on above: Performed By: #### L 100.0100 ####[facility] [address] [place], [address] Erythrocyte distribution width (RBC) [Ratio] 13.7 % Normal 11.6-14.6 [facility] Comment on above: Performed By: #### L 100.0100 ####[facility] [address] [place], [address] Hematocrit (Bld) [Volume fraction] 23.1 % Low 40-54 [facility] Comment on above: Performed By: #### L 100.0100 ####[facility] [address] [place], [address] Hemoglobin (Bld) [Mass/Vol] 7.7 g/dL Low 13.0-16.5 [facility] Comment on above: Performed By: #### L 100.0100 ####[facility] [address] [place], [address] IG% 0.300 Normal 0.0-0.9 [facility] Comment on above: Result Comment: IG% - Immature Granulocytes (promyelocytes, myelocytes andmetamyelocytes) > 1% indicates that a LEFT SHIFT is Present. Performed By: #### L 100.0100 ####[facility] [address] [place], [address] Lymphocytes/100 WBC (Bld) 12.6 % Low 19-41 [facility] Comment on above: Performed By: #### L 100.0100 ####[facility] [address] [place], [address] MCH (RBC) [Entitic mass] 30.8 pg Normal 27.0-32.0 [facility] Comment on above: Performed By: #### L 100.0100 ####[facility] [address] [place], [address] MCHC (RBC) [Mass/Vol] 33.3 g/dL Normal 32-36 [facility] Comment on above: Performed By: #### L 100.0100 ####[facility] [address] [place], [address] MCV (RBC) [Entitic vol] 92.4 fL Normal 80-94 [facility] Comment on above: Performed By: #### L 100.0100 ####[facility] [address] [place], [address] Monocytes/100 WBC (Bld) 8.0 % Normal 0-10 [facility] Comment on above: Performed By: #### L 100.0100 ####[facility] [address] [place], [address] Neutrophils/100 WBC (Bld) 79.0 % High 47-70 [facility] Comment on above: Performed By: #### L 100.0100 ####[facility] [address] [place], [address] Nucleated RBC (Bld) [#/Vol] 0 10*3/uL Normal 0-5 [facility] Comment on above: Performed By: #### L 100.0100 ####[facility] [address] [place], [address] Platelet mean volume (Bld) [Entitic vol] 12.3 fL High 6.2-12.0 [facility] Comment on above: Performed By: #### L 100.0100 ####[facility] [address] [place], [address] Platelets (Bld) [#/Vol] 191 10*3/uL Normal 150-450 [facility] Comment on above: Performed By: #### L 100.0100 ####[facility] [address] [place], [address] RBC (Bld) [#/Vol] 2.50 10*6/uL Low 4.6-6.2 [facility] Comment on above: Performed By: #### L 100.0100 ####[facility] [address] [place], [address] RDW SD 46.1 fl High 35.1-43.9 [facility] Comment on above: Performed By: #### L 100.0100 ####[facility] [address] [place], [address] WBC (Bld) [#/Vol] 10.4 10*3/uL Normal 4.4-11.0 [facility] Comment on above: Performed By: #### L 100.0100 ####[facility] [address] [place], [address] Ferritinon 04-07-2025 Ferritin [Mass/Vol] 69 ng/mL Normal 37-417 [facility] Comment on above: Performed By: #### L 503.6030, L503.6550 ####[facility] [address] [place], [address] Gram stainOrdered By: Dyana Hwang on 04-07-2025 Microscopic observation Gram stain Nom (Unsp spec) [facility] Iron measurement (mass/mass) Ordered By: Jose Moore on 04-07-2025 Iron (Unsp spec) [Mass/Mass] 27 ug/dL Low 65-175 [facility] Iron+Iron Binding Capacityon 04-07-2025 Iron [Mass/Vol] 27 ug/dL Low 65-175 [facility] Comment on above: Performed By: #### L 503.6030, L503.6550 ####[facility] [address] [place], [address] IRON SATURATION 10.0 Normal 9-55 [facility] Comment on above: Performed By: #### L 503.6030, L503.6550 ####[facility] [address] [place], [address] TIBC 270 ug/dL Normal 250-450 [facility] Comment on above: Performed By: #### L 503.6030, L503.6550 ####[facility] [address] [place], [address] UIBC 243 ug/dL Normal 228-428 [facility] Comment on above: Performed By: #### L 503.6030, L503.6550 ####[facility] [address] [place], [address] Microbial respiratory cultur eOrdered By: Dyana Hwang on 04-07-2025 Microorganism identified Cx Nom (Unsp spec) or Staphylococcus aureus isolated. [facility] No Panel InformationOrdered By: Jose Moore on 04-07-2025 Unsaturated Iron Binding Capacity 243 ug/dL 228-428 [facility] 243 ug/dL 228-428 [facility] Serum or plasma ferritin heriberto surement (mass/volume)Ordered By: Jose Moore on 04-07-2025 Ferritin [Mass/Vol] 69 ng/mL 37-417 [facility] Serum or plasma iron saturat ion measurement (mass fraction)Ordered By: Jose Moore on 04-07-2025 Iron saturation [Mass fraction] 10.0 % 9-55 [facility] Basic Metabolic Profile (BMP )on 04-06-2025 BUN/CRE 21.8 RATIO High 10-20 [facility] Comment on above: Performed By: #### L 500.2500 ####[facility] [address] [place], [address] Calcium [Mass/Vol] 8.3 mg/dL Normal 7.6-11.0 [facility] Comment on above: Performed By: #### L 500.2500 ####[facility] [address] [place], [address] Chloride [Moles/Vol] 100 mmol/L Normal 98-108 [facility] Comment on above: Performed By: #### L 500.2500 ####[facility] [address] [place], [address] CO2 [Moles/Vol] 21.0 mmol/L Normal 21.0-32.0 [facility] Comment on above: Performed By: #### L 500.2500 ####[facility] [address] [place], [address] Creatinine [Mass/Vol] 4.73 mg/dL High 0.70-1.20 [facility] Comment on above: Performed By: #### L 500.2500 ####[facility] [address] [place], [address] ECRCL 11.24 ml/min Low 50-250 [facility] Comment on above: Performed By: #### L 500.2500 ####[facility] [address] [place], [address] GAP 18 High 5-15 [facility] Comment on above: Performed By: #### L 500.2500 ####[facility] [address] [place], [address] GFR/1.73 sq M.predicted among non-blacks MDRD (S/P/Bld) [Vol rate/Area] 12 mL/min/{1.73_m2} Low >60 [facility] Comment on above: Result Comment: mL/m in/1.73m2 CKD-EPI Creatinine Equation (2020) Performed By: #### L 500.2500 ####[facility] [address] [place], [address] Glucose [Mass/Vol] 233 mg/dL High 70-99 [facility] Comment on above: Performed By: #### L 500.2500 ####[facility] [address] [place], [address] Potassium [Moles/Vol] 4.2 mmol/L Normal 3.3-5.1 [facility] Comment on above: Performed By: #### L 500.2500 ####[facility] [address] [place], [address] Sodium [Moles/Vol] 139 mmol/L Normal 133-145 [facility] Comment on above: Performed By: #### L 500.2500 ####[facility] [address] [place], [address] Urea nitrogen [Mass/Vol] 103 mg/dL Invalid Interpretation Code 4-19 [facility] Comment on above: Result Comment: Crit ical Result(s) Called at: by: 04/06/2025-09:27 Neal to Andressa Khanna.??Results read back by same. Performed By: #### L 500.2500 ####[facility] [address] [place], [address] Bedside Glucoseon 04-06-2025 FINGERSTICK GLU 269 mg/dL High 74-106 [facility] Comment on above: Result Comment: ADITI GEMENT OF PATIENT CARE PER NURSING PROTOCOL Performed By: #### L 501.080 ####[facility] [address] [place], [address] FINGERSTICK GLU 225 mg/dL High 74-106 [facility] Comment on above: Result Comment: ADITI GEMENT OF PATIENT CARE PER NURSING PROTOCOL Performed By: #### L 501.080 ####[facility] [address] [place], [address] FINGERSTICK GLU 281 mg/dL High 74-106 [facility] Comment on above: Result Comment: ADITI GEMENT OF PATIENT CARE PER NURSING PROTOCOL Performed By: #### L 501.080 ####[facility] [address] [place], [address] CBC W/Diff, Automatedon 06-0 6-2025 Absolute Lymph 1.34 X10 3/uL Normal 0.83-4.51 [facility] Comment on above: Performed By: #### L 100.0100 ####[facility] [address] [place], [address] Absolute Neut 12.3 X10 3/uL High 2.0-7.7 [facility] Comment on above: Performed By: #### L 100.0100 ####[facility] [address] [place], [address] Basophils/100 WBC (Bld) 0.1 % Normal 0-1 [facility] Comment on above: Performed By: #### L 100.0100 ####[facility] [address] [place], [address] Eosinophils/100 WBC (Bld) 0.0 % Normal 0-5 [facility] Comment on above: Performed By: #### L 100.0100 ####[facility] [address] [place], [address] Erythrocyte distribution width (RBC) [Ratio] 13.8 % Normal 11.6-14.6 [facility] Comment on above: Performed By: #### L 100.0100 ####[facility] [address] [place], [address] Hematocrit (Bld) [Volume fraction] 23.6 % Low 40-54 [facility] Comment on above: Performed By: #### L 100.0100 ####[facility] [address] [place], [address] Hemoglobin (Bld) [Mass/Vol] 7.9 g/dL Low 13.0-16.5 [facility] Comment on above: Performed By: #### L 100.0100 ####[facility] [address] [place], [address] IG% 0.500 Normal 0.0-0.9 [facility] Comment on above: Result Comment: IG% - Immature Granulocytes (promyelocytes, myelocytes andmetamyelocytes) > 1% indicates that a LEFT SHIFT is Present. Performed By: #### L 100.0100 ####[facility] [address] [place], [address] Lymphocytes/100 WBC (Bld) 9.1 % Low 19-41 [facility] Comment on above: Performed By: #### L 100.0100 ####[facility] [address] [place], [address] MCH (RBC) [Entitic mass] 30.7 pg Normal 27.0-32.0 [facility] Comment on above: Performed By: #### L 100.0100 ####[facility] [address] [place], [address] MCHC (RBC) [Mass/Vol] 33.5 g/dL Normal 32-36 [facility] Comment on above: Performed By: #### L 100.0100 ####[facility] [address] [place], [address] MCV (RBC) [Entitic vol] 91.8 fL Normal 80-94 [facility] Comment on above: Performed By: #### L 100.0100 ####[facility] [address] [place], [address] Monocytes/100 WBC (Bld) 7.0 % Normal 0-10 [facility] Comment on above: Performed By: #### L 100.0100 ####[facility] [address] [place], [address] Neutrophils/100 WBC (Bld) 83.3 % High 47-70 [facility] Comment on above: Performed By: #### L 100.0100 ####[facility] [address] [place], [address] Nucleated RBC (Bld) [#/Vol] 0 10*3/uL Normal 0-5 [facility] Comment on above: Performed By: #### L 100.0100 ####[facility] [address] [place], [address] Platelet mean volume (Bld) [Entitic vol] 11.9 fL Normal 6.2-12.0 [facility] Comment on above: Performed By: #### L 100.0100 ####[facility] [address] [place], [address] Platelets (Bld) [#/Vol] 222 10*3/uL Normal 150-450 [facility] Comment on above: Performed By: #### L 100.0100 ####[facility] [address] [place], [address] RBC (Bld) [#/Vol] 2.57 10*6/uL Low 4.6-6.2 [facility] Comment on above: Performed By: #### L 100.0100 ####[facility] [address] [place], [address] RDW SD 46.2 fl High 35.1-43.9 [facility] Comment on above: Performed By: #### L 100.0100 ####[facility] [address] [place], [address] WBC (Bld) [#/Vol] 14.8 10*3/uL High 4.4-11.0 [facility] Comment on above: Performed By: #### L 100.0100 ####[facility] [address] [place], [address] Magnesiumon 04-06-2025 Magnesium [Mass/Vol] 2.8 mg/dL High 1.5-2.2 [facility] Comment on above: Performed By: #### L 501.5200, L501.2300 ####[facility] [address] [place], [address] Magnesium measurement (mass/ volume)Ordered By: Barbie Martin on 04-06-2025 Magnesium (Unsp spec) [Mass/Vol] 2.8 mg/dL High 1.5-2.2 [facility] Phosphoruson 04-06-2025 Phosphate [Mass/Vol] 7.1 mg/dL High 2.7-4.5 [facility] Comment on above: Performed By: #### L 501.5200, L501.2300 ####[facility] [address] [place], [place], [id number] Serum classic neutrophil cyt oplasmic antibody assay (units/volume)Ordered By: Denisha Thompson on 04-06-2025 Neutrophil cytoplasmic Ab.classic Qn (S) <1:20 titer Neg:<1:20 [facility] Serum glomerular basement me mbrane antibody assay (units/volume)Ordered By: Denisha Thompson on 04-06-2025 Glomerular basement membrane Ab Qn (S) < 0.2 units 0.0-0.9 [facility] Comment on above: Performed at: [address] [id number] Director: Mignon Taylor MD, Phone: [phone] Serum perinuclear neutrophil cytoplasmic antibody titer by immunofluorescenceOrdered By: Denisha Thompson on 04-06-2025 Neutrophil cytoplasmic Ab.perinuclear IF (S) [Titer] <1:20 titer Neg:<1:20 [facility] Comment on above: The presence of posi [...] only by EIA. Ref. AM J Clin Zyeczy0287;111:507-513. 12 Lead EKGon 04-05-2025 12 Lead EKG Normal [facility] Basic Metabolic Profile (BMP )on 04-05-2025 BUN/CRE 20.8 RATIO High 10-20 [facility] Comment on above: Performed By: #### L 500.2500 ####[facility] [address] [place], [address] Calcium [Mass/Vol] 8.9 mg/dL Normal 7.6-11.0 [facility] Comment on above: Performed By: #### L 500.2500 ####[facility] [address] [place], [address] Chloride [Moles/Vol] 102 mmol/L Normal 98-108 [facility] Comment on above: Performed By: #### L 500.2500 ####[facility] [address] [place], [address] CO2 [Moles/Vol] 15.6 mmol/L Low 21.0-32.0 [facility] Comment on above: Performed By: #### L 500.2500 ####[facility] [address] [place], [address] Creatinine [Mass/Vol] 4.77 mg/dL High 0.70-1.20 [facility] Comment on above: Performed By: #### L 500.2500 ####[facility] [address] [place], [address] ECRCL 10.67 ml/min Low 50-250 [facility] Comment on above: Performed By: #### L 500.2500 ####[facility] [address] [place], [address] GAP 19 High 5-15 [facility] Comment on above: Performed By: #### L 500.2500 ####[facility] [address] [place], [address] GFR/1.73 sq M.predicted among non-blacks MDRD (S/P/Bld) [Vol rate/Area] 12 mL/min/{1.73_m2} Low >60 [facility] Comment on above: Result Comment: mL/m in/1.73m2 CKD-EPI Creatinine Equation (2020) Performed By: #### L 500.2500 ####[facility] [address] [place], [address] Glucose [Mass/Vol] 205 mg/dL High 70-99 [facility] Comment on above: Performed By: #### L 500.2500 ####[facility] [address] [place], [address] Potassium [Moles/Vol] 5.7 mmol/L High 3.3-5.1 [facility] Comment on above: Result Comment: Hemo lysis present, Results??could be affected.?? Performed By: #### L 500.2500 ####[facility] [address] [place], [address] Sodium [Moles/Vol] 137 mmol/L Normal 133-145 [facility] Comment on above: Performed By: #### L 500.2500 ####[facility] [address] [place], [address] Urea nitrogen [Mass/Vol] 99 mg/dL High 4-19 [facility] Comment on above: Performed By: #### L 500.2500 ####[facility] [address] [place], [address] BUN/CRE 20.5 RATIO High 10-20 [facility] Comment on above: Performed By: #### L 500.2500 ####[facility] [address] [place], [address] Calcium [Mass/Vol] 8.1 mg/dL Normal 7.6-11.0 [facility] Comment on above: Performed By: #### L 500.2500 ####[facility] [address] [place], [address] Chloride [Moles/Vol] 102 mmol/L Normal 98-108 [facility] Comment on above: Performed By: #### L 500.2500 ####[facility] [address], [address] CO2 [Moles/Vol] 15.8 mmol/L Low 21.0-32.0 [facility] Comment on above: Performed By: #### L 500.2500 ####[facility] [address] [place], [address] Creatinine [Mass/Vol] 4.68 mg/dL High 0.70-1.20 [facility] Comment on above: Performed By: #### L 500.2500 ####[facility] [address] [place], [address] ECRCL 10.87 ml/min Low 50-250 [facility] Comment on above: Performed By: #### L 500.2500 ####[facility] [address] [place], [address] GAP 18 High 5-15 [facility] Comment on above: Performed By: #### L 500.2500 ####[facility] [address] [place], [address] GFR/1.73 sq M.predicted among non-blacks MDRD (S/P/Bld) [Vol rate/Area] 12 mL/min/{1.73_m2} Low >60 [facility] Comment on above: Result Comment: mL/m in/1.73m2 CKD-EPI Creatinine Equation (2020) Performed By: #### L 500.2500 ####[facility] [address] [place], [address] Glucose [Mass/Vol] 223 mg/dL High 70-99 [facility] Comment on above: Performed By: #### L 500.2500 ####[facility] [address] [place], [address] Potassium [Moles/Vol] 6.3 mmol/L Invalid Interpretation Code 3.3-5.1 [facility] Comment on above: Result Comment: Crit ical Result(s) Called to: STANTON PARRA (U) by:RONEN??Results read back by same. Performed By: #### L 500.2500 ####[facility] [address] [place], [address] Sodium [Moles/Vol] 136 mmol/L Normal 133-145 [facility] Comment on above: Performed By: #### L 500.2500 ####[facility] [address] [place], [address] Urea nitrogen [Mass/Vol] 96 mg/dL High 4-19 [facility] Comment on above: Performed By: #### L 500.2500 ####[facility] [address] [place], [address] Bedside Glucoseon 04-05-2025 FINGERSTICK GLU 282 mg/dL High 74-106 [facility] Comment on above: Result Comment: ADITI GEMENT OF PATIENT CARE PER NURSING PROTOCOL Performed By: #### L 501.080 ####[facility] [address] [place], [address] FINGERSTICK GLU 165 mg/dL High 74-106 [facility] Comment on above: Result Comment: ADITI GEMENT OF PATIENT CARE PER NURSING PROTOCOL Performed By: #### L 501.080 ####[facility] [address] [place], [address] FINGERSTICK GLU 239 mg/dL High 74-106 [facility] Comment on above: Result Comment: ADITI GEMENT OF PATIENT CARE PER NURSING PROTOCOL Performed By: #### L 501.080 ####[facility] [address] [place], [address] FINGERSTICK GLU 226 mg/dL High 74-106 [facility] Comment on above: Result Comment: ADITI GEMENT OF PATIENT CARE PER NURSING PROTOCOL Performed By: #### L 501.080 ####[facility] [address] [place], [address] FINGERSTICK GLU 263 mg/dL High 74-106 [facility] Comment on above: Result Comment: ADITI GEMENT OF PATIENT CARE PER NURSING PROTOCOL Performed By: #### L 501.080 ####[facility] [address] [place], [address] FINGERSTICK GLU 253 mg/dL High 74-106 [facility] Comment on above: Result Comment: ADITI GEMENT OF PATIENT CARE PER NURSING PROTOCOL Performed By: #### L 501.080 ####[facility] [address] [place], [address] Bilirubin Test strip Ql (U)O rdered By: Denisha Thompson on 04-05-2025 Bilirubin Ql (U) 1 mg/dL High Negative [facility] Comment on above: COLOR OF URINE MAY A FFECT DIPSTICK RESULTS. Blood manual differential co mment interpretation (narrative result)Ordered By: Grace Arnold on 04-05-2025 Manual differential comment Mumtaz (Bld) [Interp] SCANNED [facility] CBC W/Diff, Automatedon SMEAR COMMENT SCANNED Normal [facility] Comment on above: Performed By: #### L 100.0100 ####[facility] [address] [place], [address] CXR for Line Placementon CXR for Line Placement Normal [place] Consultation - Surgicalon Consultation - Surgical Normal [facility] Ketones Test strip Ql (U)Ord ered By: Denisha Thompson on 04-05-2025 Ketones Ql (U) Negative Negative [facility] L499.0042on 04-05-2025 Trop T High Sen 2263 ng/L Invalid Interpretation Code <=22 [facility] Comment on above: Result Comment: Crit ical Result(s) Called at: 0040 by: BJ??Results read back by same. Performed By: #### L 499.0042 ####[facility] [address] [place], [place], [address] L499.0043on 04-05-2025 Trop T High Sen 2425 ng/L Invalid Interpretation Code <=22 [facility] Comment on above: Result Comment: Crit ical Result(s) Called at: 0336 by:??DASIA ALICIA Results read back by same. Performed By: #### L 499.0043 ####[facility] [address] [place], [place], [id number] Microscopic analysis of urin e for red blood cells (RBC)Ordered By: Denisha Thompson on 04-05-2025 Microscopic analysis of urine for red blood cells (RBC) > 100 SEEN /hpf 0-5 [facility] Mucus LM Ql (Urine sed)Order ed By: Denisha Thompson on 04-05-2025 Mucus Ql (Urine sed) 0 SEEN /hpf [facility] Nitrite Test strip Ql (U)Ord ered By: Denisha Thompson on 04-05-2025 Nitrite Ql (U) Negative Negative [facility] Operative Reporton Operative Report Normal [facility] Protein Test strip Ql (U)Ord ered By: Denisha Thompson on 04-05-2025 Protein Ql (U) 100 mg/dl High Negative [facility] Squamous epithelial cells de tection in urine sediment by light microscopyOrdered By: Denisha Thompson on 04-05-2025 Epithelial cells.squamous LM Ql (Urine sed) 0 SEEN /hpf 0-5 [facility] Troponin T.cardiac [Mass/vol ume] in Serum or Plasma by High sensitivity methodOrdered By: Breezy Campbell on 04-05-2025 Troponin T.cardiac High sensitivity method [Mass/Vol] 2425 ng/L High <22 [facility] Comment on above: Critical Result(s) C alled at: 0336 by: DASIA MOYA TO ANA ALICIA Results read back by same. Urinalysis, Completeon 04-05 WBC 5-10 SEEN Normal 0-5 [facility] Comment on above: Order Comment: HATTIE TER SPECIMEN Performed By: #### L 400.0001 ####[facility] [address] [place], [address] RBC > 100 SEEN Normal 0-5 [facility] Comment on above: Order Comment: HATTIE TER SPECIMEN Performed By: #### L 400.0001 ####[facility] [address] [place], [address] BACTERIA 0 SEEN Normal None Seen [facility] Comment on above: Order Comment: HATTIE TER SPECIMEN Performed By: #### L 400.0001 ####[facility] [address] [place], [address] EPI,SQUAMOUS 0 SEEN Normal 0-5 [facility] Comment on above: Order Comment: HATTIE TER SPECIMEN Performed By: #### L 400.0001 ####[facility] [address] [place], [address] Mucus Ql (Urine sed) 0 SEEN Normal [facility] Comment on above: Order Comment: HATTIE TER SPECIMEN Performed By: #### L 400.0001 ####[facility] [address] [place], [address] Urine clarityOrdered By: Zelalem Thompson on 04-05-2025 Clarity (U) Sl. Cloudy Clear [facility] Urine color determinationOrd ered By: Denisha Thompson on 04-05-2025 Color (U) Yellow Yellow [facility] Urine glucose detectionOrder ed By: Denisha Thompson on 04-05-2025 Glucose Ql (U) Normal mg/dl Normal [facility] Urine leukocyte esterase det ection by dipstickOrdered By: Denisha Thompson on 04-05-2025 Leukocyte esterase Test strip Ql (U) 500 /ul High Negative [facility] Urine pHOrdered By: Almita Thompson on 04-05-2025 pH (U) 5.0 [pH] 5.0 - 8.0 [facility] Urine sediment bacteria coun t by microscopy (number/high power field)Ordered By: Denisha Thompson on 04-05-2025 Bacteria LM.HPF (Urine sed) [#/Area] 0 /[HPF] None Seen [facility] Urine specific gravity measu rementOrdered By: Denisha Thompson on 04-05-2025 Specific gravity (U) [Rel density] 1.020 1.002-1.030 [facility] Urine urobilinogen measureme ntOrdered By: Denisha Thompson on 04-05-2025 Urobilinogen Ql (U) Normal mg/dl Normal [facility] White blood cell countOrdere d By: Denisha Thompson on 04-05-2025 White blood cell count 5-10 SEEN /hpf 0-5 [facility] 12 Lead EKGon 04-04-2025 12 Lead EKG Normal [facility] 12 Lead EKG Normal [facility] 12 Lead EKG Normal [facility] Basic Metabolic Profile (BMP )on 04-04-2025 BUN Normal 4-19 [facility] Comment on above: Result Comment: CANC EL PER DEVEROAUX Performed By: #### L 500.2500 ####[facility] [address] [place], [place], [id number] BUN/CRE Normal 10-20 [facility] Comment on above: Result Comment: CANC EL PER DEVEROAUX Performed By: #### L 500.2500 ####[facility] [address] [place], [address] Calcium Normal 7.6-11.0 [facility] Comment on above: Result Comment: CANC EL PER DEVEROAUX Performed By: #### L 500.2500 ####[facility] [address] [place], [address] CL Normal 98-108 [facility] Comment on above: Result Comment: CANC EL PER DEVEROAUX Performed By: #### L 500.2500 ####[facility] [address] [place], [address] CO2 Normal 21.0-32.0 [facility] Comment on above: Result Comment: CANC EL PER DEVEROAUX Performed By: #### L 500.2500 ####[facility] [address] [place], [address] CREAT,SERUM Normal 0.70-1.20 [facility] Comment on above: Result Comment: CANC EL PER DEVEROAUX Performed By: #### L 500.2500 ####[facility] [address] [place], [address] eGFR Normal >60 [facility] Comment on above: Result Comment: CANC EL PER DEVEROAUX Performed By: #### L 500.2500 ####[facility] [address] [place], [address] GAP Normal 5-15 [facility] Comment on above: Result Comment: CANC EL PER DEVEROAUX Performed By: #### L 500.2500 ####[facility] [address] [place], [address] GLU Normal 70-99 [facility] Comment on above: Result Comment: CANC EL PER DEVEROAUX Performed By: #### L 500.2500 ####[facility] [address] [place], [address] Potassium Normal 3.3-5.1 [facility] Comment on above: Result Comment: CANC EL PER DEVEROAUX Performed By: #### L 500.2500 ####[facility] [address] [place], [address] Basic Metabolic Profile (BMP) Normal 133-145 [facility] Comment on above: Result Comment: CANC EL PER DEVEROAUX Performed By: #### L 500.2500 ####[facility] [address] [place], [address] BUN/CRE 20.5 RATIO High 10-20 [facility] Comment on above: Performed By: #### L 500.2500 ####[facility] [address] [place], [address] Calcium [Mass/Vol] 8.6 mg/dL Normal 7.6-11.0 [facility] Comment on above: Performed By: #### L 500.2500 ####[facility] [address] [place], [address] Chloride [Moles/Vol] 101 mmol/L Normal 98-108 [facility] Comment on above: Performed By: #### L 500.2500 ####[facility] [address] [place], [address] CO2 [Moles/Vol] 17.2 mmol/L Low 21.0-32.0 [facility] Comment on above: Performed By: #### L 500.2500 ####[facility] [address] [place], [address] Creatinine [Mass/Vol] 3.74 mg/dL High 0.70-1.20 [facility] Comment on above: Performed By: #### L 500.2500 ####[facility] [address] [place], [address] ECRCL 13.61 ml/min Low 50-250 [facility] Comment on above: Performed By: #### L 500.2500 ####[facility] [address] [place], [address] GAP 17 High 5-15 [facility] Comment on above: Performed By: #### L 500.2500 ####[facility] [address] [place], [address] GFR/1.73 sq M.predicted among non-blacks MDRD (S/P/Bld) [Vol rate/Area] 16 mL/min/{1.73_m2} Low >60 [place] Comment on above: Result Comment: mL/m in/1.73m2 CKD-EPI Creatinine Equation (2020) Performed By: #### L 500.2500 ####[facility] [address] [place], [address] Glucose [Mass/Vol] 226 mg/dL High 70-99 [facility] Comment on above: Performed By: #### L 500.2500 ####[facility] [address] [place], [address] Potassium [Moles/Vol] 5.4 mmol/L High 3.3-5.1 [facility] Comment on above: Performed By: #### L 500.2500 ####[facility] [address] [place], [address] Sodium [Moles/Vol] 134 mmol/L Normal 133-145 [facility] Comment on above: Performed By: #### L 500.2500 ####[facility] [address] [place], [address] Urea nitrogen [Mass/Vol] 77 mg/dL High 4-19 [facility] Comment on above: Performed By: #### L 500.2500 ####[facility] [address] [place], [address] BUN/CRE 21.0 RATIO High 10-20 [facility] Comment on above: Performed By: #### L 500.2500 ####[facility] [address] [place], [address] Calcium [Mass/Vol] 8.7 mg/dL Normal 7.6-11.0 [facility] Comment on above: Performed By: #### L 500.2500 ####[facility] [address] [place], [address] Chloride [Moles/Vol] 104 mmol/L Normal 98-108 [facility] Comment on above: Performed By: #### L 500.2500 ####[facility] [address] [place], [address] CO2 [Moles/Vol] 17.5 mmol/L Low 21.0-32.0 [facility] Comment on above: Performed By: #### L 500.2500 ####[facility] [address] [place], [address] Creatinine [Mass/Vol] 3.34 mg/dL High 0.70-1.20 [facility] Comment on above: Performed By: #### L 500.2500 ####[facility] [address] [place], [address] ECRCL 15.24 ml/min Low 50-250 [facility] Comment on above: Performed By: #### L 500.2500 ####[facility] [address] [place], [address] GAP 15 Normal 5-15 [facility] Comment on above: Performed By: #### L 500.2500 ####[facility] [address] [place], [address] GFR/1.73 sq M.predicted among non-blacks MDRD (S/P/Bld) [Vol rate/Area] 18 mL/min/{1.73_m2} Low >60 [place] Comment on above: Result Comment: mL/m in/1.73m2 CKD-EPI Creatinine Equation (2020) Performed By: #### L 500.2500 ####[facility] [address] [place], [address] Glucose [Mass/Vol] 208 mg/dL High 70-99 [facility] Comment on above: Performed By: #### L 500.2500 ####[facility] [address] [place], [address] Potassium [Moles/Vol] 5.0 mmol/L Normal 3.3-5.1 [facility] Comment on above: Performed By: #### L 500.2500 ####[facility] [address] [place], [address] Sodium [Moles/Vol] 137 mmol/L Normal 133-145 [facility] Comment on above: Performed By: #### L 500.2500 ####[facility] [address] [place], [address] Urea nitrogen [Mass/Vol] 70 mg/dL High 4-19 [facility] Comment on above: Performed By: #### L 500.2500 ####[facility] [address] [place], [address] BUN/CRE 21.1 RATIO High 10-20 [facility] Comment on above: Performed By: #### L 500.2500 ####[facility] [address] [place], [address] Calcium [Mass/Vol] 8.6 mg/dL Normal 7.6-11.0 [facility] Comment on above: Performed By: #### L 500.2500 ####[facility] [address] [place], [address] Chloride [Moles/Vol] 103 mmol/L Normal 98-108 [facility] Comment on above: Performed By: #### L 500.2500 ####[facility] [address] [place], [address] CO2 [Moles/Vol] 17.8 mmol/L Low 21.0-32.0 [facility] Comment on above: Performed By: #### L 500.2500 ####[facility] [address] [place], [address] Creatinine [Mass/Vol] 3.26 mg/dL High 0.70-1.20 [facility] Comment on above: Performed By: #### L 500.2500 ####[facility] [address] [place], [address] ECRCL 15.61 ml/min Low 50-250 [facility] Comment on above: Performed By: #### L 500.2500 ####[facility] [address] [place], [address] GAP 15 Normal 5-15 [facility] Comment on above: Performed By: #### L 500.2500 ####[facility] [address] [place], [address] GFR/1.73 sq M.predicted among non-blacks MDRD (S/P/Bld) [Vol rate/Area] 18 mL/min/{1.73_m2} Low >60 [place] Comment on above: Result Comment: mL/m in/1.73m2 CKD-EPI Creatinine Equation (2020) Performed By: #### L 500.2500 ####[facility] [address] [place], [address] Glucose [Mass/Vol] 203 mg/dL High 70-99 [facility] Comment on above: Performed By: #### L 500.2500 ####[facility] [address] [place], [address] Potassium [Moles/Vol] 4.6 mmol/L Normal 3.3-5.1 [facility] Comment on above: Performed By: #### L 500.2500 ####[facility] [address] [place], [address] Sodium [Moles/Vol] 136 mmol/L Normal 133-145 [facility] Comment on above: Performed By: #### L 500.2500 ####[facility] [address] [place], [address] Urea nitrogen [Mass/Vol] 69 mg/dL High 4-19 [facility] Comment on above: Performed By: #### L 500.2500 ####[facility] [address] [place], [address] Bedside Glucoseon 04-04-2025 FINGERSTICK GLU 355 mg/dL High 74-106 [facility] Comment on above: Result Comment: ADITI GEMENT OF PATIENT CARE PER NURSING PROTOCOL Performed By: #### L 501.080 ####[facility] [address] [place], [address] FINGERSTICK GLU 307 mg/dL High 74-106 [facility] Comment on above: Result Comment: ADITI GEMENT OF PATIENT CARE PER NURSING PROTOCOL Performed By: #### L 501.080 ####[facility] [address] [place], [address] FINGERSTICK GLU 209 mg/dL High 74-106 [facility] Comment on above: Result Comment: ADITI GEMENT OF PATIENT CARE PER NURSING PROTOCOL Performed By: #### L 501.080 ####[facility] [address] [place], [address] FINGERSTICK GLU 164 mg/dL High 74-106 [facility] Comment on above: Result Comment: ADITI GEMENT OF PATIENT CARE PER NURSING PROTOCOL Performed By: #### L 501.080 ####[facility] [address] [place], [address] FINGERSTICK GLU 183 mg/dL High 74-106 [facility] Comment on above: Result Comment: ADITI GEMENT OF PATIENT CARE PER NURSING PROTOCOL Performed By: #### L 501.080 ####[facility] [address] [place], [address] FINGERSTICK GLU 178 mg/dL High 74-106 [facility] Comment on above: Result Comment: ADITI GEMENT OF PATIENT CARE PER NURSING PROTOCOL Performed By: #### L 501.080 ####[facility] [address] [place], [address] FINGERSTICK GLU 174 mg/dL High 74-106 [facility] Comment on above: Result Comment: ADITI GEMENT OF PATIENT CARE PER NURSING PROTOCOL Performed By: #### L 501.080 ####[facility] [address], [address] FINGERSTICK GLU 229 mg/dL High 74-106 [facility] Comment on above: Result Comment: ADITI GEMENT OF PATIENT CARE PER NURSING PROTOCOL Performed By: #### L 501.080 ####[facility] [address] [place], [address] FINGERSTICK GLU 317 mg/dL High [facility]106 [facility] Comment on above: Result Comment: AIDTI GEMENT OF PATIENT CARE PER NURSING PROTOCOL Performed By: #### L 501.080 ####[facility] [address] [place], [address] FINGERSTICK GLU 366 mg/dL High [address] [place] [address] Comment on above: Result Comment: ADITI GEMENT OF PATIENT CARE PER NURSING PROTOCOL Performed By: #### L 501.080 ####[facility] [address] [place], [address] FINGERSTICK GLU 250 mg/dL High [address] [place] [address] Comment on above: Result Comment: ADITI GEMENT OF PATIENT CARE PER NURSING PROTOCOL Performed By: #### L 501.080 ####[facility] [address] [place], [address] FINGERSTICK GLU 284 mg/dL High -106 [facility] Comment on above: Result Comment: ADITI GEMENT OF PATIENT CARE PER NURSING PROTOCOL Performed By: #### L 501.080 ####[facility] [address] [place], [address] FINGERSTICK GLU 235 mg/dL High 74-106 [facility] Comment on above: Result Comment: ADITI GEMENT OF PATIENT CARE PER NURSING PROTOCOL Performed By: #### L 501.080 ####[facility] [address], [address] FINGERSTICK GLU 261 mg/dL High 74-106 [facility] Comment on above: Result Comment: ADITI GEMENT OF PATIENT CARE PER NURSING PROTOCOL Performed By: #### L 501.080 ####[facility] [address] [place], [address] CBC W/Diff, Automatedon 06-0 4-2025 Absolute Lymph 1.08 X10 3/uL Normal 0.83-4.51 [facility] Comment on above: Performed By: #### L 100.0100 ####[facility] [address] [place], [address] Absolute Neut 19.9 X10 3/uL High 2.0-7.7 [facility] Comment on above: Performed By: #### L 100.0100 ####[facility] [address] [place], [address] Basophils/100 WBC (Bld) 0.1 % Normal 0-1 [facility] Comment on above: Performed By: #### L 100.0100 ####[facility] [address] [place], [address] Eosinophils/100 WBC (Bld) 0.0 % Normal 0-5 [facility] Comment on above: Performed By: #### L 100.0100 ####[facility] [address] [place], [address] Erythrocyte distribution width (RBC) [Ratio] 13.6 % Normal 11.6-14.6 [facility] Comment on above: Performed By: #### L 100.0100 ####[facility] [address] [place], [address] Hematocrit (Bld) [Volume fraction] 22.8 % Low 40-54 [facility] Comment on above: Performed By: #### L 100.0100 ####[facility] [address] [place], [address] Hemoglobin (Bld) [Mass/Vol] 7.4 g/dL Low 13.0-16.5 [facility] Comment on above: Performed By: #### L 100.0100 ####[facility] [address] [place], [address] IG% 0.600 Normal 0.0-0.9 [facility] Comment on above: Result Comment: IG% - Immature Granulocytes (promyelocytes, myelocytes andmetamyelocytes) > 1% indicates that a LEFT SHIFT is Present. Performed By: #### L 100.0100 ####[facility] [address] [place], [address] Lymphocytes/100 WBC (Bld) 4.9 % Low 19-41 [facility] Comment on above: Performed By: #### L 100.0100 ####[facility] [address] [place], [address] MCH (RBC) [Entitic mass] 30.0 pg Normal 27.0-32.0 [facility] Comment on above: Performed By: #### L 100.0100 ####[facility] [address] [place], [address] MCHC (RBC) [Mass/Vol] 32.5 g/dL Normal 32-36 [facility] Comment on above: Performed By: #### L 100.0100 ####[facility] [address] [place], [address] MCV (RBC) [Entitic vol] 92.3 fL Normal 80-94 [facility] Comment on above: Performed By: #### L 100.0100 ####[facility] [address] [place], [address] Monocytes/100 WBC (Bld) 4.0 % Normal 0-10 [facility] Comment on above: Performed By: #### L 100.0100 ####[facility] [address] [place], [address] Neutrophils/100 WBC (Bld) 90.4 % High 47-70 [facility] Comment on above: Performed By: #### L 100.0100 ####[facility] [address] [place], [address] Nucleated RBC (Bld) [#/Vol] 0 10*3/uL Normal 0-5 [facility] Comment on above: Performed By: #### L 100.0100 ####[facility] [address] [place], [address] Platelet mean volume (Bld) [Entitic vol] 11.4 fL Normal 6.2-12.0 [facility] Comment on above: Performed By: #### L 100.0100 ####[facility] [address] [place], [address] Platelets (Bld) [#/Vol] 230 10*3/uL Normal 150-450 [facility] Comment on above: Performed By: #### L 100.0100 ####[facility] [address] [place], [address] RBC (Bld) [#/Vol] 2.47 10*6/uL Low 4.6-6.2 [facility] Comment on above: Performed By: #### L 100.0100 ####[facility] [address] [place], [address] RDW SD 45.9 fl High 35.1-43.9 [facility] Comment on above: Performed By: #### L 100.0100 ####[facility] [address] [place], [address] WBC (Bld) [#/Vol] 22.0 10*3/uL High 4.4-11.0 [facility] Comment on above: Performed By: #### L 100.0100 ####[facility] [address] [place], [place], [address] Consultation - Nephrologyon 04-04-2025 Consultation - Nephrology Normal [facility] Creatinine, Urineon 04-04-20 25 URINE CREAT 138.00 mg/dL Normal 39.00-259.00 [facility] Comment on above: Performed By: #### L 502.0715, L502.0300 ####[facility] [address] [place], [address] Kidney and Bladderon 025 Kidney and Bladder Normal [facility] L501.4021on 04-04-2025 Trop T High Sen 2204 ng/L Invalid Interpretation Code <=22 [facility] Comment on above: Result Comment: Crit ical Result(s) Called at: 2232 by: JEANNIE SHARMA Results read back by same. Performed By: #### L 501.4021 ####[facility] [address] [place], [address] Troponin T.cardiac [Mass/vol ume] in Serum or Plasma by High sensitivity methodOrdered By: Breezy Campbell on 04-04-2025 Troponin T.cardiac High sensitivity method [Mass/Vol] 2204 ng/L High <22 [facility] Comment on above: Delta: 58 on 5-0005Critical Result(s) Called at: 2232 by: JEANNIE SHARMA Results read back by same. Troponin T.cardiac High sensitivity method [Mass/Vol] 2263 ng/L High <22 [facility] Comment on above: Critical Result(s) C alled at: 0040 by: JENNIFER SHARMA Results read back by same. Urea Nitrogen, Urineon 04-04 URINE UREA 406 mg/dL Normal NO RANGE EST. [facility] Comment on above: Performed By: #### L 502.0715, L502.0300 ####[facility] [address] [place], [address] Urine Cultureon 04-04-2025 URC Culture exhibits no growth. Normal [facility] Comment on above: Performed By: #### M 100.2200 ####[facility] [address] [place], [place], [address] Urine creatinine measurement (mass/volume)Ordered By: Grace Arnold on 04-04-2025 Creatinine (U) [Mass/Vol] 138.00 mg/dL 39.00-25 9.00 [facility] 12 Lead EKGon 04-03-2025 12 Lead EKG Normal [facility] Absolute lymphocyte countOrd ered By: John [place] on 04-03-2025 Lymphocytes Auto (Unsp spec) [#/Vol] 2.12 10*3/uL 0.83-4.51 [facility] Absolute neutrophil countOrd ered By: John [place] on 04-03-2025 Neutrophils (Bld) [#/Vol] 12.0 10*3/uL High 2.0-7.7 [facility] Activated partial thrombopla stin time (aPTT) in platelet poor plasma by coagulation aOrdered By: Grace Arnold on 04-03-2025 aPTT Coag (PPP) [Time] 212.0 s High 24.1-36.2 [place] Comment on above: CRITICAL VALUE GRIMM D TO RElizabet OBREGONZO04/03/25 1243 Ness Huang.RESULTS READ BACK BY SAME. Activated partial thrombopla stin time (aPTT) in platelet poor plasma by coagulation aOrdered By: Dyana Hwang on 04-03-2025 aPTT Coag (PPP) [Time] 37.3 s High 24.1-36.2 [place] Anion gap in Serum or Plasma Ordered By: John [place] on 04-03-2025 Anion gap [Moles/Vol] 14 mmol/L 5-15 [facility] Assessment of wrist artery p atency prior to arterial punctureOrdered By: Dyana Hwang on 04-03-2025 Arterial patency Wrist artery --pre arterial puncture Positive [facility] Automated lymphocyte count a s percentage of total leukocytesOrdered By: John [place] on 04-03-2025 Lymphocytes/100 WBC Auto (Unsp spec) 13.5 % Low 19-41 [facility] BUN/creatinine ratioOrdered By: John [place] on 04-03-2025 Urea nitrogen/Creatinine [Mass ratio] 22.3 mg/mg High 10-20 [facility] Basic Metabolic Profile (BMP )on 04-03-2025 BUN/CRE 21.7 RATIO High 10-20 [facility] Comment on above: Performed By: #### L 500.2500 ####[facility] [address] [place], [address] Calcium [Mass/Vol] 8.5 mg/dL Normal 7.6-11.0 [facility] Comment on above: Performed By: #### L 500.2500 ####[facility] [address] [place], [address] Chloride [Moles/Vol] 102 mmol/L Normal 98-108 [facility] Comment on above: Performed By: #### L 500.2500 ####[facility] [address] [place], [address] CO2 [Moles/Vol] 17.3 mmol/L Low 21.0-32.0 [facility] Comment on above: Performed By: #### L 500.2500 ####[facility] [address] [place], [address] Creatinine [Mass/Vol] 3.02 mg/dL High 0.70-1.20 [facility] Comment on above: Performed By: #### L 500.2500 ####[facility] [address] [place], [address] ECRCL 16.69 ml/min Low 50-250 [facility] Comment on above: Performed By: #### L 500.2500 ####[facility] [address] [place], [address] GAP 16 High 5-15 [facility] Comment on above: Performed By: #### L 500.2500 ####[facility] [address] [place], [address] GFR/1.73 sq M.predicted among non-blacks MDRD (S/P/Bld) [Vol rate/Area] 20 mL/min/{1.73_m2} Low >60 [place] Comment on above: Result Comment: mL/m in/1.73m2 CKD-EPI Creatinine Equation (2020) Performed By: #### L 500.2500 ####[facility] [address] [place], [address] Glucose [Mass/Vol] 275 mg/dL High 70-99 [facility] Comment on above: Performed By: #### L 500.2500 ####[facility] [address] [place], [address] Potassium [Moles/Vol] 4.5 mmol/L Normal 3.3-5.1 [facility] Comment on above: Performed By: #### L 500.2500 ####[facility] [address] [place], [address] Sodium [Moles/Vol] 136 mmol/L Normal 133-145 [facility] Comment on above: Performed By: #### L 500.2500 ####[facility] [address] [place], [address] Urea nitrogen [Mass/Vol] 66 mg/dL High 4-19 [facility] Comment on above: Performed By: #### L 500.2500 ####[facility] [address] [place], [address] BUN/CRE 22.9 RATIO High 10-20 [facility] Comment on above: Performed By: #### L 500.2500 ####[facility] [address] [place], [address] Calcium [Mass/Vol] 9.0 mg/dL Normal 7.6-11.0 [facility] Comment on above: Performed By: #### L 500.2500 ####[facility] [address] [place], [address] Chloride [Moles/Vol] 100 mmol/L Normal 98-108 [facility] Comment on above: Performed By: #### L 500.2500 ####[facility] [address] [place], [address] CO2 [Moles/Vol] 16.9 mmol/L Low 21.0-32.0 [facility] Comment on above: Performed By: #### L 500.2500 ####[facility] [address] [place], [address] Creatinine [Mass/Vol] 2.73 mg/dL High 0.70-1.20 [facility] Comment on above: Performed By: #### L 500.2500 ####[facility] [address] [place], [address] ECRCL 18.46 ml/min Low 50-250 [facility] Comment on above: Performed By: #### L 500.2500 ####[facility] [address] [place], [address] GAP 18 High 5-15 [facility] Comment on above: Performed By: #### L 500.2500 ####[facility] [address] [place], [address] GFR/1.73 sq M.predicted among non-blacks MDRD (S/P/Bld) [Vol rate/Area] 23 mL/min/{1.73_m2} Low >60 [place] Comment on above: Result Comment: mL/m in/1.73m2 CKD-EPI Creatinine Equation (2020) Performed By: #### L 500.2500 ####[facility] [address] [place], [address] Glucose [Mass/Vol] 407 mg/dL High 70-99 [facility] Comment on above: Performed By: #### L 500.2500 ####[facility] [address] [place], [address] Potassium [Moles/Vol] 4.3 mmol/L Normal 3.3-5.1 [facility] Comment on above: Performed By: #### L 500.2500 ####[facility] [address] [place], [address] Sodium [Moles/Vol] 135 mmol/L Normal 133-145 [facility] Comment on above: Performed By: #### L 500.2500 ####[facility] [address] [place], [address] Urea nitrogen [Mass/Vol] 62 mg/dL High 4-19 [facility] Comment on above: Performed By: #### L 500.2500 ####[facility] [address] [place], [address] BUN/CRE 21.7 RATIO High 10-20 [facility] Comment on above: Performed By: #### L 500.2500 ####[facility] [address] [place], [address] Calcium [Mass/Vol] 8.6 mg/dL Normal 7.6-11.0 [facility] Comment on above: Performed By: #### L 500.2500 ####[facility] [address] [place], [address] Chloride [Moles/Vol] 98 mmol/L Normal 98-108 [facility] Comment on above: Performed By: #### L 500.2500 ####[facility] [address] [place], [address] CO2 [Moles/Vol] 13.6 mmol/L Low 21.0-32.0 [facility] Comment on above: Performed By: #### L 500.2500 ####[facility] [address] [place], [address] Creatinine [Mass/Vol] 2.67 mg/dL High 0.70-1.20 [facility] Comment on above: Performed By: #### L 500.2500 ####[facility] [address] [place], [address] ECRCL 18.87 ml/min Low 50-250 [facility] Comment on above: Performed By: #### L 500.2500 ####[facility] [address] [place], [address] GAP 21 High 5-15 [facility] Comment on above: Performed By: #### L 500.2500 ####[facility] [address] [place], [address] GFR/1.73 sq M.predicted among non-blacks MDRD (S/P/Bld) [Vol rate/Area] 23 mL/min/{1.73_m2} Low >60 [place] Comment on above: Result Comment: mL/m in/1.73m2 CKD-EPI Creatinine Equation (2020) Performed By: #### L 500.2500 ####[facility] [address] [place], [address] Glucose [Mass/Vol] 638 mg/dL Invalid Interpretation Code 70-99 [facility] Comment on above: Result Comment: Crit ical Result(s) Called CRISMULE at: 1553 by:COLETTE??Results read back by same. Performed By: #### L 500.2500 ####[facility] [address] [place], [address] Potassium [Moles/Vol] 4.4 mmol/L Normal 3.3-5.1 [facility] Comment on above: Performed By: #### L 500.2500 ####[facility] [address] [place], [address] Sodium [Moles/Vol] 133 mmol/L Normal 133-145 [facility] Comment on above: Performed By: #### L 500.2500 ####[facility] [address] [place], [address] Urea nitrogen [Mass/Vol] 58 mg/dL High 4-19 [facility] Comment on above: Performed By: #### L 500.2500 ####[facility] [address] [place], [address] BUN/CRE 22.3 RATIO High 10-20 [facility] Comment on above: Performed By: #### L 100.0100, L500.2500, L300.8000 ####[facility] [address] [place], [address] Calcium [Mass/Vol] 8.8 mg/dL Normal 7.6-11.0 [facility] Comment on above: Performed By: #### L 100.0100, L500.2500, L300.8000 ####[facility] [address] [place], [address] Chloride [Moles/Vol] 104 mmol/L Normal 98-108 [facility] Comment on above: Performed By: #### L 100.0100, L500.2500, L300.8000 ####[facility] [address] [place], [address] CO2 [Moles/Vol] 20.8 mmol/L Low 21.0-32.0 [facility] Comment on above: Performed By: #### L 100.0100, L500.2500, L300.8000 ####[facility] [address] [place], [address] Creatinine [Mass/Vol] 1.88 mg/dL High 0.70-1.20 [facility] Comment on above: Performed By: #### L 100.0100, L500.2500, L300.8000 ####[facility] [address] [place], [address] ECRCL 28.20 ml/min Low 50-250 [facility] Comment on above: Performed By: #### L 100.0100, L500.2500, L300.8000 ####[facility] [address] [place], [address] GAP 14 Normal 5-15 [facility] Comment on above: Performed By: #### L 100.0100, L500.2500, L300.8000 ####[facility] [address] [place], [address] GFR/1.73 sq M.predicted among non-blacks MDRD (S/P/Bld) [Vol rate/Area] 35 mL/min/{1.73_m2} Low >60 [place] Comment on above: Result Comment: mL/m in/1.73m2 CKD-EPI Creatinine Equation (2020) Performed By: #### L 100.0100, L500.2500, L300.8000 ####[facility] [address] [place], [address] Glucose [Mass/Vol] 255 mg/dL High 70-99 [facility] Comment on above: Performed By: #### L 100.0100, L500.2500, L300.8000 ####[facility] [address] [place], [address] Potassium [Moles/Vol] 4.4 mmol/L Normal 3.3-5.1 [facility] Comment on above: Performed By: #### L 100.0100, L500.2500, L300.8000 ####[facility] [address] [place], [address] Sodium [Moles/Vol] 139 mmol/L Normal 133-145 [facility] Comment on above: Performed By: #### L 100.0100, L500.2500, L300.8000 ####[facility] [address] [place], [address] Urea nitrogen [Mass/Vol] 42 mg/dL High 4-19 [facility] Comment on above: Performed By: #### L 100.0100, L500.2500, L300.8000 ####[facility] [address] [place], [address] Basophil percentageOrdered B y: John Aleksandr on 04-03-2025 Basophils/100 WBC (Bld) 0.6 % 0-1 [facility] Bedside Glucoseon 04-03-2025 FINGERSTICK GLU 363 mg/dL High 74-106 [facility] Comment on above: Result Comment: ADITI GEMENT OF PATIENT CARE PER NURSING PROTOCOL Performed By: #### L 501.080 ####[facility] [address] [place], [address] FINGERSTICK GLU 454 mg/dL Invalid Interpretation Code [address] [place] [address] Comment on above: Result Comment: Dr James sim FollowedMANAGEMENT OF PATIENT CARE PER NURSING PROTOCOL Performed By: #### L 501.080 ####[facility] [address] [place], [address] FINGERSTICK GLU 496 mg/dL Invalid Interpretation Code [address] [place] [address] Comment on above: Result Comment: Dr James sim FollowedMANAGEMENT OF PATIENT CARE PER NURSING PROTOCOL Performed By: #### L 501.080 ####[facility] [address] [place], [address] FINGERSTICK GLU > 500 Invalid Interpretation Code [address] [place] [address] Comment on above: Result Comment: ADITI GEMENT OF PATIENT CARE PER NURSING PROTOCOL Performed By: #### L 501.080 ####[facility] [address] [place], [address] FINGERSTICK GLU > 500 Invalid Interpretation Code [address] [place] [address] Comment on above: Result Comment: ADITI GEMENT OF PATIENT CARE PER NURSING PROTOCOL Performed By: #### L 501.080 ####[facility] [address] [place], [address] FINGERSTICK GLU > 500 Invalid Interpretation Code [address] [place] [address] Comment on above: Result Comment: ADITI GEMENT OF PATIENT CARE PER NURSING PROTOCOL Performed By: #### L 501.080 ####[facility] [address] [place], [address] FINGERSTICK GLU 435 mg/dL High [address] [place] [address] Comment on above: Result Comment: ADITI GEMENT OF PATIENT CARE PER NURSING PROTOCOL Performed By: #### L 501.080 ####[facility] [address] [place], [address] Bilirubin, totalOrdered By: Dyana Hwang on 04-03-2025 Bilirubin [Mass/Vol] 0.38 mg/dL 0.00-1.30 [facility] Blood [facility] by [facility] FILI TEST Positive Normal [facility] Comment on above: Performed By: #### L 9000.0800 ####[facility] [address] [place], [address] Base excess Calc (Bld) [Moles/Vol] -8 mmol/L Low -2 to +2 [facility] Comment on above: Performed By: #### L 9000.0800 ####[facility] [address] [place], [address] Blood Gas Type ART Normal [facility] Comment on above: Performed By: #### L 9000.0800 ####[facility] [address] [place], [address] CO2 [Moles/Vol] 18 mmol/L Normal [facility] Comment on above: Performed By: #### L 9000.0800 ####[facility] [address] [place], [address] FI02 30.0 Normal [facility] Comment on above: Performed By: #### L 9000.0800 ####[facility] [address] [place], [address] HCO3 (Bld) [Moles/Vol] 17.5 mmol/L Low 22-26 [facility] Comment on above: Performed By: #### L 9000.0800 ####[facility] [address] [place], [address] [facility] Comment on above: Performed By: #### L 9000.0800 ####[facility] [address] [place], [address] O2 Delivery Dev BiPAP Normal [facility] Comment on above: Performed By: #### L 9000.0800 ####[facility] [address] [place], [address] pCO2 29.8 mmHg Low 35-45 [facility] Comment on above: Performed By: #### L 9000.0800 ####[facility] [address] [place], [address] PEEP 10 Normal [facility] Comment on above: Performed By: #### L 9000.0800 ####[facility] [address] [place], [address] pH (Bld) 7.38 [pH] Normal 7.35-7.45 [facility] Comment on above: Performed By: #### L 9000.0800 ####[facility] [address] [place], [address] PIP 18 Normal [facility] Comment on above: Performed By: #### L 9000.0800 ####[facility] [address] [place], [address] PO2 83 mmHG Normal 75-100 [facility] Comment on above: Performed By: #### L 9000.0800 ####[facility] [address] [place], [address] RR 12 Normal [facility] Comment on above: Performed By: #### L 9000.0800 ####[facility] [address] [place], [address] SITE R Radial Normal [facility] Comment on above: Performed By: #### L 9000.0800 ####[facility] [address] [place], [address] SO2 96 Normal 95-99 [facility] Comment on above: Performed By: #### L 9000.0800 ####[facility] [address] [place], [address] Blood base excess determinat ionOrdered By: Dyana Hwang on 04-03-2025 Base excess Calc (BldV) [Moles/Vol] -8 mmol/L Low -2-2 [facility] Blood bicarbonate measuremen tOrdered By: Dyana Hwang on 04-03-2025 HCO3 (Bld) [Moles/Vol] 17.5 mmol/L Low 22-26 [facility] Blood cultureOrdered By: Elli Brandon on 04-03-2025 Bacteria identified Cx Nom (Bld) No growth in 5 days. [facility] Bacteria identified Cx Nom (Bld) No growth in 5 days. [facility] CBC W/Diff, Automatedon 06 Absolute Lymph 0.43 X10 3/uL Low 0.83-4.51 [facility] Comment on above: Performed By: #### L 100.0100 ####[facility] [address] [place], [address] Absolute Neut 12.4 X10 3/uL High 2.0-7.7 [facility] Comment on above: Performed By: #### L 100.0100 ####[facility] [address] [place], [address] Basophils/100 WBC (Bld) 0.3 % Normal 0-1 [facility] Comment on above: Performed By: #### L 100.0100 ####[facility] [address], [address] Eosinophils/100 WBC (Bld) 0.0 % Normal 0-5 [facility] Comment on above: Performed By: #### L 100.0100 ####[facility] [address] [place], [address] Erythrocyte distribution width (RBC) [Ratio] 13.4 % Normal 11.6-14.6 [facility] Comment on above: Performed By: #### L 100.0100 ####[facility] [address] [place], [address] Hematocrit (Bld) [Volume fraction] 28.9 % Low 40-54 [facility] Comment on above: Performed By: #### L 100.0100 ####[facility] [address] [place], [address] Hemoglobin (Bld) [Mass/Vol] 9.3 g/dL Low 13.0-16.5 [facility] Comment on above: Performed By: #### L 100.0100 ####[facility] [address] [place], [address] IG% 0.500 Normal 0.0-0.9 [facility] Comment on above: Result Comment: IG% - Immature Granulocytes (promyelocytes, myelocytes andmetamyelocytes) > 1% indicates that a LEFT SHIFT is Present. Performed By: #### L 100.0100 ####[facility] [address], [address] Lymphocytes/100 WBC (Bld) 3.3 % Low 19-41 [facility] Comment on above: Performed By: #### L 100.0100 ####[facility] [address] [place], [address] MCH (RBC) [Entitic mass] 30.1 pg Normal 27.0-32.0 [facility] Comment on above: Performed By: #### L 100.0100 ####[facility] [address] [place], [address] MCHC (RBC) [Mass/Vol] 32.2 g/dL Normal 32-36 [facility] Comment on above: Performed By: #### L 100.0100 ####[facility] [address] [place], [address] MCV (RBC) [Entitic vol] 93.5 fL Normal 80-94 [facility] Comment on above: Performed By: #### L 100.0100 ####[facility] [address] [place], [address] Monocytes/100 WBC (Bld) 1.1 % Normal 0-10 [facility] Comment on above: Performed By: #### L 100.0100 ####[facility] [address] [place], [address] Neutrophils/100 WBC (Bld) 94.8 % High 47-70 [facility] Comment on above: Performed By: #### L 100.0100 ####[facility] [address] [place], [address] Nucleated RBC (Bld) [#/Vol] 0 10*3/uL Normal 0-5 [facility] Comment on above: Performed By: #### L 100.0100 ####[facility] [address] [place], [address] Platelet mean volume (Bld) [Entitic vol] 11.4 fL Normal 6.2-12.0 [facility] Comment on above: Performed By: #### L 100.0100 ####[facility] [address] [place], [address] Platelets (Bld) [#/Vol] 268 10*3/uL Normal 150-450 [facility] Comment on above: Performed By: #### L 100.0100 ####[facility] [address] [place], [address] RBC (Bld) [#/Vol] 3.09 10*6/uL Low 4.6-6.2 [facility] Comment on above: Performed By: #### L 100.0100 ####[facility] [facility] [address] [place], [address] RDW SD 45.9 fl High 35.1-43.9 [facility] Comment on above: Performed By: #### L 100.0100 ####[facility] [address] [place], [address] WBC (Bld) [#/Vol] 13.0 10*3/uL High 4.4-11.0 [facility] Comment on above: Performed By: #### L 100.0100 ####[facility] [address] [place], [address] Absolute Lymph 2.12 X10 3/uL Normal 0.83-4.51 [facility] Comment on above: Performed By: #### L 100.0100, L500.2500, L300.8000 ####[facility] [address] [place], [address] Absolute Neut 12.0 X10 3/uL High 2.0-7.7 [facility] Comment on above: Performed By: #### L 100.0100, L500.2500, L300.8000 ####[facility] [address] [place], [address] Basophils/100 WBC (Bld) 0.6 % Normal 0-1 [facility] Comment on above: Performed By: #### L 100.0100, L500.2500, L300.8000 ####[facility] [address] [place], [address] Eosinophils/100 WBC (Bld) 1.9 % Normal 0-5 [facility] Comment on above: Performed By: #### L 100.0100, L500.2500, L300.8000 ####[facility] [address] [place], [address] Erythrocyte distribution width (RBC) [Ratio] 13.2 % Normal 11.6-14.6 [facility] Comment on above: Performed By: #### L 100.0100, L500.2500, L300.8000 ####[facility] [address] [place], [address] Hematocrit (Bld) [Volume fraction] 32.2 % Low 40-54 [facility] Comment on above: Performed By: #### L 100.0100, L500.2500, L300.8000 ####[facility] [address] [place], [address] Hemoglobin (Bld) [Mass/Vol] 10.2 g/dL Low 13.0-16.5 [facility] Comment on above: Performed By: #### L 100.0100, L500.2500, L300.8000 ####[facility] [address] [place], [address] IG% 0.600 Normal 0.0-0.9 [facility] Comment on above: Result Comment: IG% - Immature Granulocytes (promyelocytes, myelocytes andmetamyelocytes) > 1% indicates that a LEFT SHIFT is Present. Performed By: #### L 100.0100, L500.2500, L300.8000 ####[facility] [address] [place], [address] Lymphocytes/100 WBC (Bld) 13.5 % Low 19-41 [facility] Comment on above: Performed By: #### L 100.0100, L500.2500, L300.8000 ####[facility] [address] [place], [address] MCH (RBC) [Entitic mass] 29.9 pg Normal 27.0-32.0 [facility] Comment on above: Performed By: #### L 100.0100, L500.2500, L300.8000 ####[facility] [address] [place], [address] MCHC (RBC) [Mass/Vol] 31.7 g/dL Low 32-36 [facility] Comment on above: Performed By: #### L 100.0100, L500.2500, L300.8000 ####[facility] [address] [place], [address] MCV (RBC) [Entitic vol] 94.4 fL High 80-94 [facility] Comment on above: Performed By: #### L 100.0100, L500.2500, L300.8000 ####[facility] [address] [place], [address] Monocytes/100 WBC (Bld) 7.0 % Normal 0-10 [facility] Comment on above: Performed By: #### L 100.0100, L500.2500, L300.8000 ####[facility] [address] [place], [address] Neutrophils/100 WBC (Bld) 76.4 % High 47-70 [facility] Comment on above: Performed By: #### L 100.0100, L500.2500, L300.8000 ####[facility] [address] [place], [address] Nucleated RBC (Bld) [#/Vol] 0 10*3/uL Normal 0-5 [facility] Comment on above: Performed By: #### L 100.0100, L500.2500, L300.8000 ####[facility] [address] [place], [address] Platelet mean volume (Bld) [Entitic vol] 10.8 fL Normal 6.2-12.0 [facility] Comment on above: Performed By: #### L 100.0100, L500.2500, L300.8000 ####[facility] [address] [place], [address] Platelets (Bld) [#/Vol] 300 10*3/uL Normal 150-450 [facility] Comment on above: Performed By: #### L 100.0100, L500.2500, L300.8000 ####[facility] [address] [place], [address] RBC (Bld) [#/Vol] 3.41 10*6/uL Low 4.6-6.2 [facility] Comment on above: Performed By: #### L 100.0100, L500.2500, L300.8000 ####[facility] [address] [place], [address] RDW SD 45.3 fl High 35.1-43.9 [facility] Comment on above: Performed By: #### L 100.0100, L500.2500, L300.8000 ####[facility] [address] [place], [address] WBC (Bld) [#/Vol] 15.7 10*3/uL High 4.4-11.0 [facility] Comment on above: Performed By: #### L 100.0100, L500.2500, L300.8000 ####[facility] [address] [place], [address] CO2 (BldV) [Moles/Vol]Ordere d By: John Brandon on 04-03-2025 CO2 [Moles/Vol] 27 mmol/L 23-33 [facility] CTA Chest W/WO Contraston CTA Chest W/WO Contrast Normal [facility] Calculated very low density lipoprotein (VLDL) cholesterol measurementOrdered By: Dyana Hwang on 04-03-2025 Calculated very low density lipoprotein (VLDL) cholesterol measurement 9 mg/dL 5-40 [facility] Carbon dioxide, total [Moles /volume] in Central venous bloodOrdered By: John Brandon on 04-03-2025 CO2 [Moles/Vol] 20.8 mmol/L Low 21.0-32.0 [facility] Chest 1 View (Portable)on Chest 1 View (Portable) Normal [facility] Chloride assayOrdered By: Shabbir Brandon on 04-03-2025 Chloride [Moles/Vol] 104 mmol/L 98-108 [facility] Comprehensive Metabolic Prof ilon 04-03-2025 Albumin [Mass/Vol] 3.6 g/dL Normal 3.4-4.8 [facility] Comment on above: Performed By: #### L 509.7001, L500.4100, L500.4050, L501.9520 ####[facility] [address] [place], [address] Albumin/Globulin [Mass ratio] 1.5 {ratio} Normal 0.9-2.4 [facility] Comment on above: Performed By: #### L 509.7001, L500.4100, L500.4050, L501.9520 ####[facility] [address] [place], [address] ALK PHOS 80 U/L Normal 40-129 [facility] Comment on above: Performed By: #### L 509.7001, L500.4100, L500.4050, L501.9520 ####[facility] [address] [place], [address] ALT [Catalytic activity/Vol] 16 U/L Normal <=46 [facility] Comment on above: Performed By: #### L 509.7001, L500.4100, L500.4050, L501.9520 ####[facility] [address] [place], [address] AST [Catalytic activity/Vol] 24 U/L Normal <=37 [facility] Comment on above: Performed By: #### L 509.7001, L500.4100, L500.4050, L501.9520 ####[facility] [address] [place], [address] Bilirubin [Mass/Vol] 0.38 mg/dL Normal 0.00-1.30 [facility] Comment on above: Performed By: #### L 509.7001, L500.4100, L500.4050, L501.9520 ####[facility] [address] [place], [address] BUN/CRE 24.6 RATIO High 10-20 [facility] Comment on above: Performed By: #### L 509.7001, L500.4100, L500.4050, L501.9520 ####[facility] [address] [place], [address] Calcium [Mass/Vol] 7.9 mg/dL Normal 7.6-11.0 [facility] Comment on above: Performed By: #### L 509.7001, L500.4100, L500.4050, L501.9520 ####[facility] [address] [place], [address] Chloride [Moles/Vol] 104 mmol/L Normal 98-108 [facility] Comment on above: Performed By: #### L 509.7001, L500.4100, L500.4050, L501.9520 ####[facility] [address] [place], [address] CO2 [Moles/Vol] 15.5 mmol/L Low 21.0-32.0 [facility] Comment on above: Performed By: #### L 509.7001, L500.4100, L500.4050, L501.9520 ####[facility] [address] [place], [address] Creatinine [Mass/Vol] 1.77 mg/dL High 0.70-1.20 [facility] Comment on above: Performed By: #### L 509.7001, L500.4100, L500.4050, L501.9520 ####[facility] [address] [place], [address] ECRCL 28.47 ml/min Low 50-250 [facility] Comment on above: Performed By: #### L 509.7001, L500.4100, L500.4050, L501.9520 ####[facility] [address] [place], [address] GAP 18 High 5-15 [facility] Comment on above: Performed By: #### L 509.7001, L500.4100, L500.4050, L501.9520 ####[facility] [address] [place], [address] GFR/1.73 sq M.predicted among non-blacks MDRD (S/P/Bld) [Vol rate/Area] 38 mL/min/{1.73_m2} Low >60 [facility] Comment on above: Result Comment: mL/m in/1.73m2 CKD-EPI Creatinine Equation (2020) Performed By: #### L 509.7001, L500.4100, L500.4050, L501.9520 ####[facility] [address] [place], [address] Globulin (S) [Mass/Vol] 2.4 g/dL Normal 2.2-4.2 [facility] Comment on above: Performed By: #### L 509.7001, L500.4100, L500.4050, L501.9520 ####[facility] [address] [place], [address] Glucose [Mass/Vol] 428 mg/dL High 70-99 [facility] Comment on above: Performed By: #### L 509.7001, L500.4100, L500.4050, L501.9520 ####[facility] [address] [place], [address] Potassium [Moles/Vol] 4.5 mmol/L Normal 3.3-5.1 [facility] Comment on above: Performed By: #### L 509.7001, L500.4100, L500.4050, L501.9520 ####[facility] [address] [place], [address] Sodium [Moles/Vol] 137 mmol/L Normal 133-145 [facility] Comment on above: Performed By: #### L 509.7001, L500.4100, L500.4050, L501.9520 ####[facility] [address] [place], [address] T PROT 6.0 g/dL Normal 5.9-8.4 [facility] Comment on above: Performed By: #### L 509.7001, L500.4100, L500.4050, L501.9520 ####[facility] [address] [place], [address] Urea nitrogen [Mass/Vol] 44 mg/dL High 4-19 [facility] Comment on above: Performed By: #### L 509.7001, L500.4100, L500.4050, L501.9520 ####[facility] [address] [place], [address] Consultation - Cardiologyon 04-03-2025 Consultation - Cardiology Normal [facility] Consultation - Intensiviston 04-03-2025 Consultation - Risk Assessment Consultant Normal [facility] D-Dimer Quantitative (DVT/PE )on 04-03-2025 D-DIMER QUANT 1.86 FEU/ug/m Invalid Interpretation Code 0.27-0.49 [facility] Comment on above: Result Comment: D-Di shyanne ELEVATED (>0.49): Additional studies and clinicalassessments are indicated to conclude diagnosis of:Deep Vein Thrombosis (DVT) or Pulmonary Embolism (PE)CRITICAL VALUE CALLED TO [id number] Victor Hugo Santamaria.RESULTS READ BACK BY SAME. Performed By: #### L 100.0100, L500.2500, L300.8000 ####[facility] [address] [place], [address] Echo Completeon 04-03-2025 Echo Complete Normal [facility] Echocardiogram study reportO rdered By: Koffi Gibbs on 04-03-2025 Study report [facility] [address] [place] [address] Echo Complete 04/03/25 0920 MR#: [id number] Acct: [id number] Name: ENOC ARMANDO Rep #:[id number] : 1945 79 From: Koffi Gibbs MD [...] ~ Date Dictated: 04/03/25919 Date Transcribed: 04/03/251221 Photographic Engineer: Signed [facility] Work Phone: Emergency Department Summary on 04-03-2025 Emergency Department Summary Normal [facility] Eosinophil percentageOrdered By: John Brandon on 04-03-2025 Eosinophils/100 WBC (Bld) 1.9 % 0-5 [facility] Erythrocyte distribution wid th ratioOrdered By: John Brandon on 04-03-2025 Erythrocyte distribution width (RBC) [Ratio] 13.2 % 11.6-14.6 [facility] Erythrocyte distribution wid th standard deviationOrdered By: John Brandon on 04-03-2025 Erythrocyte distribution width (RBC) [Ratio] 45.3 fl High 35.1-43.9 [facility] Glomerular filtration rate ( GFR) estimation/1.73 sq m using serum, plasma, or whole bOrdered By: John Brandon on 04-03-2025 GFR/1.73 sq M.predicted among non-blacks MDRD (S/P/Bld) [Vol rate/Area] 35 mL/min/{1.73_m2} Low >60 [facility] Comment on above: mL/min/1.73m2 CKD-EP I Creatinine Equation (2020) H AND P Exam - Hospitaliston 04-03-2025 H&P Exam - Hospitalist Normal [facility] Hematocrit Auto (Bld) [Volum e fraction]Ordered By: John Brandon on 04-03-2025 Hematocrit (Bld) [Volume fraction] 32.2 % Low 40-54 [facility] Hemoglobin measurementOrdere d By: John Brandon on 04-03-2025 Hemoglobin (Bld) [Mass/Vol] 10.2 g/dL Low 13.0-16.5 [facility] Immature granulocytes/100 WB C Auto (Bld)Ordered By: John Brandon on 04-03-2025 Immature granulocytes/100 WBC (Bld) 0.600 % 0.0-0.9 [facility] Comment on above: IG% - Immature Granu locytes (promyelocytes, myelocytes and metamyelocytes) > 1% indicates that a LEFT SHIFT is Present. Influenza virus A and B and SARS-CoV-2 (COVID-19) and Respiratory syncytial virus RNAOrdered By: John Brandon on 04-03-2025 SARS-CoV-2 (COVID-19) RNA ALICE+probe Ql (Unsp spec) [facility] International normalized rat io (INR) calculationOrdered By: Dyana Hwang on 04-03-2025 INR Coag (Bld) [Relative time] 1.0 {INR} [facility] L499.0042on 04-03-2025 Trop T High Sen Normal <=22 [facility] Comment on above: Result Comment: Canc elled via OM: Duplicate Order Performed By: #### L 499.0042 ####[facility] [address] [place], [place], [id number] Trop T High Sen 76 ng/L Invalid Interpretation Code <=22 [facility] Comment on above: Result Comment: Crit ical Result(s) Called at:0312 by:??DASIA SOUZA Results read back by same. Performed By: #### L 499.0042 ####[facility] [address] [place], [address] L499.0043on 04-03-2025 Trop T High Sen Normal <=22 [facility] Comment on above: Result Comment: Canc elled via OM: Duplicate Order Performed By: #### L 499.0043 ####[facility] [address] [place], [address] Trop T High Sen 80 ng/L Invalid Interpretation Code <=22 [facility] Comment on above: Result Comment: Crit ical Result(s) Called at: 0515 by: DASIA JOSEPH??Results read back by same. Performed By: #### L 499.0043 ####[facility] [address] [place], [address] L501.4021on 04-03-2025 Trop T High Sen 58 ng/L Invalid Interpretation Code <=22 [facility] Comment on above: Result Comment: Crit ical Result(s) Called at: 0058 by: DASIA ALBRIGHT??Results read back by same. Performed By: #### L 501.4021, L503.7505 ####[facility] [address] [facility] [place], [address] L503.7505on 04-03-2025 Natriuretic peptide B (Bld) [Mass/Vol] 6552 pg/mL High <=1800 [facility] Comment on above: Result Comment: Hear t Failure Unlikely: < 300 pg/mLHeart Failure Likely< 50 Years: > 450 pg/mL50-75 Years: > 900 pg/mL>75 Years: > 1800 pg/mL Performed By: #### L 501.4021, L503.7505 ####[facility] [address] [place], [address] L509.7001on 04-03-2025 Procalcitonin 0.31 ng/mL High <=0.10 [facility] Comment on above: Result Comment: Inte rpretation:<0.10-0.25 [...] L 509.7001, L500.4100, L500.4050, L501.9520 ####[facility] [address] [place], [place], [address] LDL calc ser/plasOrdered By: Dyana Hwang on 04-03-2025 Cholesterol in LDL [Mass/Vol] 80 mg/dL [facility] Comment on above: Gmikhcjujt=119-921 m g/dL & Higher Psuo=080 mg/dL or greater Laboratory - Chemistry and C hemistry - challengeOrdered By: Dyana Hwang on 04-03-2025 AST [Catalytic activity/Vol] 24 U/L <38 [facility] Lactic Acidon 04-03-2025 Lactate [Moles/Vol] 1.3 mmol/L Normal 0.0-2.0 [facility] Comment on above: Order Comment: Y Performed By: #### L 503.6005, M200.1000 ####[facility] [address] [place], [place], [address] Lactic acid measurementOrder ed By: John Brandon on 04-03-2025 Lactate [Moles/Vol] 1.3 mmol/L 0.0-2.0 [facility] Legionella Antigen Urineon 0 04-03-2025 LEGU Normal [facility] Comment on above: Performed By: #### M 300.2330 ####[facility] [address] [place], [address] Lipid Profileon 04-03-2025 CHOL:HDL 2.87 Normal [facility] Comment on above: Performed By: #### L 509.7001, L500.4100, L500.4050, L501.9520 ####[facility] [address] [place], [address] Cholesterol [Mass/Vol] 137 mg/dL Normal <=200 [place] Comment on above: Result Comment: Chol esterol level, Desirable <200 mg/dLBorderline high cholesterol 200-239 mg/dLHigh cholesterol >=240 mg/dLRecommendations of the NCEP Adult Treatment Panel for thefollowing risk-cutoff thresholds for the [place] Americanpopulation. Performed By: #### L 509.7001, L500.4100, L500.4050, L501.9520 ####[facility] [address] [place], [address] Cholesterol in HDL [Mass/Vol] 48 mg/dL Normal [facility] Comment on above: Result Comment: Anastacia onal Cholesterol Education Program (NCEP) guidelines:<40 mg/dL: Low HDL-cholesterol (major risk factor for CHD)>= 60 mg/dL: High HDL-cholesterol (negative risk factor forCHD)HDL-cholesterol is affected by a number of factors, e.g.smoking, exercise, hormones, sex and age. Performed By: #### L 509.7001, L500.4100, L500.4050, L501.9520 ####[facility] [address] [place], [address] Cholesterol in LDL [Mass/Vol] 80 mg/dL Normal [facility] Comment on above: Result Comment: Bord ledmzr=228-357 mg/dL Higher Vghq=914 mg/dL or greater Performed By: #### L 509.7001, L500.4100, L500.4050, L501.9520 ####[facility] [address] [place], [address] Cholesterol in VLDL [Mass/Vol] 9 mg/dL Normal 5-40 [facility] Comment on above: Performed By: #### L 509.7001, L500.4100, L500.4050, L501.9520 ####[facility] [address] [place], [address] Triglyceride [Mass/Vol] 44 mg/dL Normal [facility] Comment on above: Result Comment: The drugs N-Acetylcysteine and Metamizole may falselydepress this assay.Normal range: <150 mg/dLBorderline High: 150-199 mg/dLHigh: 200-499 mg/dLVery High: >500 mg/dL Performed By: #### L 509.7001, L500.4100, L500.4050, L501.9520 ####[facility] [address] [place], [address] M100.678on 04-03-2025 M100.678 SARS-CoV-2 (COVID 19) Negative INFLUENZA A Negative INFLUENZA B Negative RSV PCR Negative Normal [facility] Comment on above: Performed By: #### M 100.678 ####[facility] [address] [place], [address] M8200.1075on 04-03-2025 M8200.1075 Pending MRSA PCR MRSA NEGATIVE STAPH. AUREUS PCR STAPH. AUREUS NEGATIVE Normal [facility] Comment on above: Performed By: #### M 8200.1075 ####[facility] [address] [place], [address] MCV (mean corpuscular volume ) determinationOrdered By: John Brandon on 04-03-2025 MCV (RBC) [Entitic vol] 94.4 fL High 80-94 [facility] Magnesiumon 04-03-2025 Magnesium [Mass/Vol] 2.3 mg/dL High 1.5-2.2 [facility] Comment on above: Order Comment: Comme nts: may add to ED labs Performed By: #### L 501.5200, L300.3900, L300.4310 ####[facility] [address] [place], [address] Magnesium measurement (mass/ volume)Ordered By: Dyana Hwang on 04-03-2025 Magnesium (Unsp spec) [Mass/Vol] 2.3 mg/dL High 1.5-2.2 [facility] Mean corpuscular hemoglobin (MCH) determinationOrdered By: John Brandon on 04-03-2025 MCH (RBC) [Entitic mass] 29.9 pg 27.0-32.0 [facility] Mean corpuscular hemoglobin concentration (MCHC) determinationOrdered By: John Brandon on 04-03-2025 MCHC (RBC) [Mass/Vol] 31.7 g/dL Low 32-36 [facility] Mean platelet volume determi nationOrdered By: John Brandon on 04-03-2025 Platelet mean volume (Bld) [Entitic vol] 10.8 fL 6.2-12.0 [facility] Measurement, pHOrdered By: Anabelle Hwang on 04-03-2025 pH (Unsp spec) 7.38 [pH] 7.35-7.45 [facility] Monocyte percentageOrdered B y: John Brandon on 04-03-2025 Monocytes/100 WBC (Bld) 7.0 % 0-10 [facility] Natriuretic peptide.B prohor katja N-Terminal [Mass/volume] in Serum or PlasmaOrdered By: John Brandon on 04-03-2025 Natriuretic peptide.B prohormone N-Terminal [Mass/Vol] 6552 pg/mL High <1800 [facility] Comment on above: Heart Failure Unlike ly: < 300 pg/mLHeart Failure Likely< 50 Years: > 450 pg/mL50-75 Years: > 900 pg/mL>75 Years: > 1800 pg/mL Neutrophil percentageOrdered By: John Brandon on 04-03-2025 Neutrophils/100 WBC (Bld) 76.4 % High 47-70 [facility] No Panel InformationOrdered By: Dyana Hwang on 04-03-2025 Bedside Blood Gas PEEP 10 [place] Bld Gas Peak Inspiratory Pressure 18 [facility] Blood Gas Respiration Rate 12 [facility] Blood Gas Sample Site R Radial [facility] Blood Gas Specimen Type ART [facility] Blood Gas Vent Mode Not entered [facility] Oxygen Delivery Device BiPAP [place] ART [facility] R Radial [facility] Not entered [facility] BiPAP [facility] 18 [facility] 12 [facility] 10 [facility] 24 U/L <38 [facility] No Panel InformationOrdered By: John Brandon on 04-03-2025 Blood Gas Clinical Comments 18. 10. 30% [facility] 18. 10. 30% [facility] Nucleated red blood cell per centageOrdered By: John Brandon on 04-03-2025 Nucleated RBC/100 WBC (Bld) [Ratio] 0 % 0-5 [facility] Partial Thromboplast Timeon 04-03-2025 aPTT Coag (Bld) [Time] 212.0 s Invalid Interpretation Code 24.1-36.2 [facility] Comment on above: Result Comment: CRIT ICAL VALUE CALLED TO GordoElizabet CORONA04/03/25 1243 Ness Sal.RESULTS READ BACK BY SAME. Performed By: #### L 300.4310 ####[facility] [address] [place], [address] aPTT Coag (Bld) [Time] 37.3 s High 24.1-36.2 [place] Comment on above: Performed By: #### L 501.5200, L300.3900, L300.4310 ####[facility] [address] [place], [address] Platelet countOrdered By: Shabbir Brandon on 04-03-2025 Platelets (Bld) [#/Vol] 300 10*3/uL 150-450 [facility] Potassium measurement (mass/ volume)Ordered By: John Brandon on 04-03-2025 Potassium (Unsp spec) [Mass/Vol] 4.4 mmol/L 3.3-5.1 [facility] Procalcitonin [Mass/volume] in Serum or Plasma by ImmunoassayOrdered By: Dyana Hwang on 04-03-2025 Procalcitonin IA [Mass/Vol] 0.31 ng/mL High <0.11 [facility] Comment on above: Interpretation:<0.10 -0.25 ng/mL: Antibiotic [...] [Relative time] 1.0 {INR} Normal [facility] Comment on above: Performed By: #### L 501.5200, L300.3900, L300.4310 ####[facility] [address] [place], [address] PT Coag (PPP) [Time] 13.4 s Normal 11.7-14.9 [facility] Comment on above: Performed By: #### L 501.5200, L300.3900, L300.4310 ####[facility] [address] [place], [address] Prothrombin timeOrdered By: Dyana Hwang on 04-03-2025 PT Coag (PPP) [Time] 13.4 s 11.7-14.9 [facility] RBC Auto (Bld) [#/Vol]Ordere d By: John Brandon on 04-03-2025 RBC (Bld) [#/Vol] 3.41 10*6/uL Low 4.6-6.2 [facility] RESPIRATORY PANEL MOLECULARo n 04-03-2025 RP PANEL Normal [facility] Comment on above: Performed By: #### M 100.638 ####[facility] [address] [place], [place], [phone] Respiratory pathogens detect ion panel by molecular detection methodOrdered By: Dyana Hwang on 04-03-2025 Respiratory pathogens DNA and RNA panel ALICE+probe (Resp) [facility] Screening total cholesterol/ high density lipoprotein (HDL) cholesterol ratioOrdered By: Dyana Hwang on 04-03-2025 Cholesterol.total/Cholest santos in HDL [Mass ratio] 2.87 {ratio} [facility] Serum creatinine measurement (mass/volume)Ordered By: John Brandon on 04-03-2025 Creatinine [Mass/Vol] 1.88 mg/dL High 0.70-1.20 [facility] Serum globulin measurementOr dered By: Dyana Hwang on 04-03-2025 Globulin (S) [Mass/Vol] 2.4 g/dL 2.2-4.2 [facility] Serum glucose measurement (m ass/volume)Ordered By: John Brandon on 04-03-2025 Glucose [Mass/Vol] 255 mg/dL High 70-99 [facility] Serum or plasma alanine clayton otransferase (ALT) measurementOrdered By: Dyana Hwang on 04-03-2025 ALT [Catalytic activity/Vol] 16 U/L <47 [facility] Serum or plasma albumin nikkie urement (mass/volume)Ordered By: Dyana Hwang on 04-03-2025 Albumin [Mass/Vol] 3.6 g/dL 3.4-4.8 [facility] Serum or plasma albumin/glob ulin mass ratioOrdered By: Dyana Hwang on 04-03-2025 Albumin/Globulin [Mass ratio] 1.5 {ratio} 0.9-2.4 [facility] Serum or plasma alkaline dwight sphatase measurementOrdered By: Dyana Hwang on 04-03-2025 ALP [Catalytic activity/Vol] 80 U/L 40-129 [facility] Serum or plasma calcium nikkie urement (mass/volume)Ordered By: John Brandon on 04-03-2025 Calcium [Mass/Vol] 8.8 mg/dL 7.6-11.0 [facility] Serum or plasma cholesterol in HDL measurement (mass/volume)Ordered By: Dyana Hwang on 04-03-2025 Cholesterol in HDL [Mass/Vol] 48 mg/dL >40 [facility] Comment on above: National Cholesterol Education Program (NCEP) guidelines:<40 mg/dL: Low HDL-cholesterol (major risk factor for CHD)>= 60 mg/dL: High HDL-cholesterol (negative risk factor for CHD)HDL-cholesterol is affected by a number of factors, e.g. smoking, exercise, hormones, sex and age. Serum or plasma cholesterol measurement (mass/volume)Ordered By: Dyana Hwang on 04-03-2025 Cholesterol [Mass/Vol] 137 mg/dL <201 [place] Comment on above: Cholesterol level, D esirable <200 mg/dLBorderline high cholesterol 200-239 mg/dLHigh cholesterol >=240 mg/dLRecommendations of the NCEP Adult Treatment Panel for the following risk-cutoff thresholds for the [place] population. Serum or plasma urea nitroge n measurement (mass/volume)Ordered By: John Brandon on 04-03-2025 Urea nitrogen [Mass/Vol] 42 mg/dL High 4-19 [facility] Sodium levelOrdered By: Lesley Brandon on 04-03-2025 Sodium [Moles/Vol] 139 mmol/L 133-145 [facility] Strep pneumoniae Antig(UR,CS F)on 04-03-2025 STPAG Normal [facility] Comment on above: Performed By: #### M 300.4600 ####[facility] [address] [place], [place], [id number] TSH DL <= 0.005 mIU/L QnOrde red By: Dyana Hwang on 04-03-2025 TSH Qn 0.530 uIU/mL 0.300-4.200 [facility] Thyroid Stim Hormone (TSH)on 04-03-2025 TSH 0.530 uIU/mL Normal 0.300-4.200 [facility] Comment on above: Performed By: #### L 509.7001, L500.4100, L500.4050, L501.9520 ####[facility] [address] [place], [place], [phone] Total carbon dioxide measure mentOrdered By: Dyana Hwang on 04-03-2025 CO2 [Moles/Vol] 18 mmol/L [facility] Total proteinOrdered By: Cesilia Hwang on 04-03-2025 Protein [Mass/Vol] 6.0 g/dL 5.9-8.4 [facility] Triglycerides measurementOrd ered By: Dyana Hwang on 04-03-2025 Triglyceride [Mass/Vol] 44 mg/dL <199 [facility] Comment on above: The drugs N-Acetylcy steine and Metamizole may falsely depress this assay. Normal range: <150 mg/dLBorderline High: 150-199 mg/dLHigh: 200-499 mg/dLVery High: >500 mg/dL Troponin T.cardiac [Mass/vol ume] in Serum or Plasma by High sensitivity methodOrdered By: John Brandon on 04-03-2025 Troponin T.cardiac High sensitivity method [Mass/Vol] 80 ng/L High <22 [facility] Comment on above: Critical Result(s) C alled at: 0515 by: DASIA JOSEPH Results read back by same. Troponin T.cardiac High sensitivity method [Mass/Vol] 76 ng/L High <22 [facility] Comment on above: Critical Result(s) C alled at:0312 by: DASIA BOJORQUEZ Results read back by same. Troponin T.cardiac High sensitivity method [Mass/Vol] 58 ng/L High <22 [facility] Comment on above: Critical Result(s) C alled at: 0058 by: DASIA ALBRIGHT Results read back by same. Urine Legionella pneumophila antigen detectionOrdered By: Dyana Hwang on 04-03-2025 L. pneumophila Ag Ql (U) [facility] Urine cultureOrdered By: Cesilia Hwang on 04-03-2025 Bacteria identified Cx Nom (U) Culture exhibits no growth. [facility] Venous Blood Gason Blood Gas Type JUANITA Normal [facility] Comment on above: Performed By: #### L 9000.0810 ####[facility] [address] [place], [address] CO2 [Moles/Vol] 27 mmol/L Normal 23-33 [facility] Comment on above: Performed By: #### L 0.0810 ####[facility] [address] [place], [address] Comment 18. 10. 30% Normal [facility] Comment on above: Performed By: #### L 9000.0810 ####[facility] [address] [place], [address] FI02 30.0 Normal [facility] Comment on above: Performed By: #### L 900.0810 ####[facility] [address] [place], [address] HCO3 (Bld) [Moles/Vol] 26 mmol/L Normal 22-26 [place] Comment on above: Performed By: #### L 9000.0810 ####[facility] [address] [place], [address] O2 Delivery Dev BiPAP Normal [facility] Comment on above: Performed By: #### L 9000.0810 ####[facility] [address] [place], [address] SITE Not entered Normal [facility] Comment on above: Performed By: #### L 9000.0810 ####[facility] [address] [place], [address] VBG BE 0 mmol/L Normal -1.0-3.5 [facility] Comment on above: Performed By: #### L 9000.0810 ####[facility] [address] [place], [address] VBG pCO2 46.6 mmHg Normal 41-51 [facility] Comment on above: Performed By: #### L 9000.0810 ####[facility] [address] [place], [address] VBG pH 7.35 Normal 7.32-7.42 [facility] Comment on above: Performed By: #### L 9000.0810 ####[facility] [address] [place], [address] VBG PO2 44 mmHg High 25-40 [facility] Comment on above: Performed By: #### L 9000.0810 ####[facility] [address] [place], [address] VBG SO2 76 High 50-70 [facility] Comment on above: Performed By: #### L 9000.0810 ####[facility] [address] [place], [address] Venous blood base excess heriberto surementOrdered By: John Brandon on 04-03-2025 Base excess Calc (BldV) [Moles/Vol] 0 mmol/L -1.0-3.5 [facility] Venous blood bicarbonate heriberto surementOrdered By: John Brandon on 04-03-2025 HCO3 (Bld) [Moles/Vol] 26 mmol/L 22-26 [place] Venous blood oxygen saturati on measurementOrdered By: John Brandon on 04-03-2025 Oxygen saturation in Blood 76 % High 50-70 [facility] Venous blood pH measurementO rdered By: John Brandon on 04-03-2025 pH (BldV) 7.35 [pH] 7.32-7.42 [facility] Venous blood partial pressur e of carbon dioxide measurementOrdered By: John Brandon on 04-03-2025 CO2 (BldV) [Partial pressure] 46.6 mm[Hg] 41-51 [facility] Venous blood partial pressur e of oxygen measurementOrdered By: John Brandon on 04-03-2025 Oxygen (BldV) [Partial pressure] 44 mm[Hg] High 25-40 [facility] White blood cell (WBC) count Ordered By: John Brandon on 04-03-2025 WBC (Bld) [#/Vol] 15.7 10*3/uL High 4.4-11.0 [facility] BASIC METABOLIC PANEL WITH A NION GAPon 03-24-2025 Calcium [Mass/Vol] 8.6 mg/dL Normal 8.6-10.3 [facility] Comment on above: Performed By: #### 9 6438 #### [facility] [place] [address] Reed Worker: Jadon Velez MD Chloride [Moles/Vol] 104 mmol/L Normal 98-110 [facility] Comment on above: Performed By: #### 9 5648 #### [facility] [place] [address] Reed Worker: Jadon Velez MD CO2 [Moles/Vol] 23 mmol/L Normal 20-32 [facility] Comment on above: Performed By: #### 9 5048 #### [facility] [address] [address] Worker: Jadon Velez MD Creatinine [Mass/Vol] 1.96 mg/dL High 0.70-1.[address] [facility] Comment on above: Performed By: #### 9 2498 #### [facility] [address], [address] [place] [address] Reed Worker: Jadon Velez MD ELECTROLYTE BALANCE 11 mmol/L (calc) Normal 7-17 [facility] Comment on above: Performed By: #### 9 2498 #### [facility] [address], [address] [place] [address] Reed Worker: Jadon Velez MD GFR/1.73 sq M.predicted among non-blacks MDRD (S/P/Bld) [Vol rate/Area] 34 mL/min/{1.73_m2} Low > OR = 60 [facility] Comment on above: Performed By: #### 9 2498 #### [facility] [place] [address] [address] Worker: Jadon Velez MD Glucose [Mass/Vol] 301 mg/dL High 65-99 [facility] Comment on above: Result Comment: Fasting reference interval For someone without known diabetes, a glucose value >125 mg/dL indicates that they may have diabetes and this should be confirmed with a follow-up test. Performed By: #### 9 2498 #### [facility] [address], [address] [place] [address] Reed Worker: Jadon Velez MD Potassium [Moles/Vol] 4.2 mmol/L Normal 3.5-5.[address] [facility] Comment on above: Performed By: #### 9 2498 #### [facility] [place] [address] [address] Worker: Jadon Velez MD Sodium [Moles/Vol] 138 mmol/L Normal 135-146 [facility] Comment on above: Performed By: #### 9 6248 #### [facility] [place] [address] Reed Worker: Jadon Velez MD Urea nitrogen [Mass/Vol] 39 mg/dL High 7-25 [facility] Comment on above: Performed By: #### 9 2498 #### [facility] [address], [address] [place] [id number] Reed Worker: Jadon Velez MD Urea nitrogen/Creatinine [Mass ratio] 20 mg/mg Normal 6-22 [facility] Comment on above: Performed By: #### 9 2498 #### [facility] [address], [address] [place] [address] Reed Worker: Jadon Velez MD APTT HEPARIN COVERAGEon 05-0 aPTT Coag (Bld) [Time] 86 s High 23-34 [facility] Comment on above: Order Comment: Thera peutic range for APTT's is 68 - 104 seconds Performed By: #### 4 6848 #### [facility] [address] [place] [address] Moody Martinez M.D. 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 Performed By: #### 4 6124 #### [facility] [address] [place] [address] Moody Martinez M.D. 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 [id number] CBCon 03-05-2025 AUTO NRBC 0.0 % Normal [facility] Comment on above: Performed By: #### 4 5218 #### [facility] [address] [address] Moody Martinez M.D. [id number] AUTO NRBC ABS COUNT 0.00 K/mcL Normal 0.00-0.00 [facility] Comment on above: Performed By: #### 4 5218 #### [facility] [address] [address] Moody Martinez M.D. [id number] Erythrocyte distribution width (RBC) [Ratio] 13.0 % Normal 11.6-14.8 [facility] Comment on above: Performed By: #### 4 5218 #### [facility] [address] [address] Moody Martinez M.D. [id number] Hematocrit (Bld) [Volume fraction] 28.4 % Low 41.0-53.0 [facility] Comment on above: Performed By: #### 4 5218 #### [facility] [address] [address] Moody Martinez M.D. [id number] Hemoglobin (Bld) [Mass/Vol] 9.3 g/dL Low 13.5-17.5 [facility] Comment on above: Performed By: #### 4 5218 #### [facility] [address] [address] Moody Martinez M.D. [id number] MCH (RBC) [Entitic mass] 30.3 pg Normal 26.0-34.0 [facility] Comment on above: Performed By: #### 4 5218 #### [facility] [address] [address] Moody Martinez M.D. [id number] MCV (RBC) [Entitic vol] 92.5 fL Normal 80.0-100.0 [facility] Comment on above: Performed By: #### 4 5218 #### [facility] [address] [address] Moody Martinez M.D. [id number] MEAN CORPUSCULAR HEMOGLOBIN CONC 32.7 g/dL Normal 31.0-37.0 [facility] Comment on above: Performed By: #### 4 5218 #### [facility] [address] [address] Moody Martinez M.D. [id number] Platelet mean volume (Bld) [Entitic vol] 11.8 fL Normal 9.4-12.4 [facility] Comment on above: Performed By: #### 4 [id number] #### LAB [address] [address] Moody Martinez M.D. [id number] Platelets (Bld) [#/Vol] 191 10*3/uL Normal 150-400 [facility] Comment on above: Performed By: #### 4 [id number] #### LAB [address] [address] Moody Martinez M.D. [id number] RBC (Bld) [#/Vol] 3.07 10*6/uL Low 4.50-5.90 [facility] Comment on above: Performed By: #### 4 5218 #### LAB [address] [address] Moody Martinez M.D. [id number] WBC (Bld) [#/Vol] 9.14 10*3/uL Normal 4.50-11.00 [facility] Comment on above: Performed By: #### 4 [id number] #### LAB [address] [address] Moody Martinez M.D. [id number] MAGNESIUM LEVELon 03-05-2025 Magnesium [Mass/Vol] 2.2 mg/dL Normal 1.6-2.4 [facility] Comment on above: Performed By: #### 4 6109 #### LAB [address] [address] Moody Martinez M.D. [id number] [facility] Glucose [Mass/Vol] 249 mg/dL High [address] [place] [address] Comment on above: Performed By: #### 4 6932 ####[facility] [address] [address] Moody Martinez M.D. [id number] Glucose [Mass/Vol] 188 mg/dL [address] Comment on above: Performed By: #### 4 6932 ####[facility] [address] [address] Moody Martinez M.D. [id number] Glucose [Mass/Vol] 115 mg/dL [address] Comment on above: Performed By: #### 4 6932 ####[facility] [address] [address] Moody Martinez M.D. [id number] POTASSIUM LEVELon 03-05-2025 Potassium [Moles/Vol] 3.4 mmol/L Low 3.5-5.1 [facility] Comment on above: Performed By: #### 4 6351 ####[facility] [address] [address] Moody Martinez M.D. [id number] APTT HEPARIN COVERAGEon aPTT Coag (d) [Time] 72 s High 23-34 [facility] Comment on above: Order Comment: Thera peutic range for APTT's is 68 - 104 seconds Performed By: #### 4 4014 #### [facility] [address] [address] Moody Martinez M.D. [id number] BASIC METABOLIC PANELon 05-0 Anion gap [Moles/Vol] 16 mmol/L Normal 10-20 [facility] Comment on above: Order Comment: [facility] has implemented the eGFR calculation approach that does not have a coefficient for race that conforms to the NKF-ASN Task Force Recommendations. Performed By: #### 4 6124 #### LAB [address] [address] Moody Martinez M.D. [id number] Calcium [Mass/Vol] 8.3 mg/dL Low 8.4-10.2 [facility] Comment on above: Order Comment: [facility] has implemented the eGFR calculation approach that does not have a coefficient for race that conforms to the NKF-ASN Task Force Recommendations. Performed By: #### 4 6124 #### LAB [address] [address] Moody Martinez M.D. [id number] Chloride [Moles/Vol] 103 mmol/L Normal 98-108 [facility] Comment on above: Order Comment: [facility] has implemented the eGFR calculation approach that does not have a coefficient for race that conforms to the NKF-ASN Task Force Recommendations. Performed By: #### 4 6124 #### LAB [address] [place], [place] [address] Moody Martinez M.D. [id number] Creatinine [Mass/Vol] 1.89 mg/dL High 0.80-1.30 [facility] Comment on above: Order Comment: [facility] has implemented the eGFR calculation approach that does not have a coefficient for race that conforms to the NKF-ASN Task Force Recommendations. Performed By: #### 4 6124 #### LAB [address] [address] Moody Martinez M.D. [id number] EGFR 35 mL/min/1.73 m2 Low >=60 [facility] Comment on above: Order Comment: [facility] has implemented the eGFR calculation approach that does not have a coefficient for race that conforms to the NKF-ASN Task Force Recommendations. Result Comment: Albin mated GFR was calculated using the 2020 CKD-EPI creatinine equation. Performed By: #### 4 6197 #### LAB [address] [address] Moody Martinez M.D. [id number] Glucose [Mass/Vol] 190 mg/dL High 65-99 [facility] Comment on above: Order Comment: [facility] has implemented the eGFR calculation approach that does not have a coefficient for race that conforms to the NKF-ASN Task Force Recommendations. Performed By: #### 4 6124 #### LAB [address] [address] Moody Martinez M.D. [id number] HCO3 (Bld) [Moles/Vol] 25 mmol/L Normal 21-32 [facility] Comment on above: Order Comment: [facility] has implemented the eGFR calculation approach that does not have a coefficient for race that conforms to the NKF-ASN Task Force Recommendations. Performed By: #### 4 6124 #### LAB [address] [address] Moody Martinez M.D. [id number] Potassium [Moles/Vol] 3.5 mmol/L Normal 3.5-5.1 [facility] Comment on above: Order Comment: [facility] has implemented the eGFR calculation approach that does not have a coefficient for race that conforms to the NKF-ASN Task Force Recommendations. Performed By: #### 4 6124 #### LAB [address] [address] Moody Martinez M.D. [id number] Sodium [Moles/Vol] 140 mmol/L Normal 135-145 [facility] Comment on above: Order Comment: [facility] has implemented the eGFR calculation approach that does not have a coefficient for race that conforms to the NKF-ASN Task Force Recommendations. Performed By: #### 4 6124 #### LAB [address] [address] Moody Martinez M.D. [id number] Urea nitrogen [Mass/Vol] 45 mg/dL High 8-25 [facility] Comment on above: Order Comment: [facility] has implemented the eGFR calculation approach that does not have a coefficient for race that conforms to the NKF-ASN Task Force Recommendations. Performed By: #### 4 6124 #### LAB [address] [address] Moody Martinez M.D. [id number] Urea nitrogen/Creatinine [Mass ratio] 23.8 mg/mg High 10.0-20.0 [facility] Comment on above: Order Comment: [facility] has implemented the eGFR calculation approach that does not have a coefficient for race that conforms to the NKF-ASN Task Force Recommendations. Performed By: #### 4 6124 #### LAB [address] [address] Moody Martinez M.D. [id number] CBCon 03-04-2025 AUTO NRBC 0.0 % Normal [facility] Comment on above: Performed By: #### 4 5218 #### LAB [address] [address] Moody Martinez M.D. [id number] AUTO NRBC ABS COUNT 0.00 K/mcL Normal 0.00-0.00 [facility] Comment on above: Performed By: #### 4 5218 #### LAB [address] [address] Moody Martinez M.D. [id number] Erythrocyte distribution width (RBC) [Ratio] 13.1 % Normal 11.6-14.8 [facility] Comment on above: Performed By: #### 4 5218 #### LAB [address] [id number] Moody Martinez M.D. [id number] Hematocrit (Bld) [Volume fraction] 28.1 % Low 41.0-53.0 [facility] Comment on above: Performed By: #### 4 5218 #### LAB [address] [address] Moody Martinez M.D. [id number] Hemoglobin (Bld) [Mass/Vol] 9.0 g/dL Low 13.5-17.5 [facility] Comment on above: Performed By: #### 4 5218 #### LAB [address] [address] Moody Martinez M.D. [id number] MCH (RBC) [Entitic mass] 30.6 pg Normal 26.0-34.0 [facility] Comment on above: Performed By: #### 4 5218 #### LAB [address] [address] Moody Martinez M.D. [id number] MCV (RBC) [Entitic vol] 95.6 fL Normal 80.0-100.0 [facility] Comment on above: Performed By: #### 4 5218 #### LAB [address] [address] Moody Martinez M.D. [id number] MEAN CORPUSCULAR HEMOGLOBIN CONC 32.0 g/dL Normal 31.0-37.0 [facility] Comment on above: Performed By: #### 4 5218 #### LAB [address] [address] Moody Martinez M.D. [id number] Platelet mean volume (Bld) [Entitic vol] 11.8 fL Normal 9.4-12.4 [facility] Comment on above: Performed By: #### 4 5218 #### LAB [address] [address] Moody Martniez M.D. [id number] Platelets (Bld) [#/Vol] 175 10*3/uL Normal 150-400 [facility] Comment on above: Performed By: #### 4 5218 #### LAB [address] [address] Moody Martinez M.D. [id number] RBC (Bld) [#/Vol] 2.94 10*6/uL Low 4.50-5.90 [facility] Comment on above: Performed By: #### 4 5218 #### LAB [address] [id number] Moody Martinez M.D. [id number] WBC (Bld) [#/Vol] 8.08 10*3/uL Normal 4.50-11.00 [facility] Comment on above: Performed By: #### 4 5218 #### LAB [address] [address] Moody Martinez M.D. [id number] MAGNESIUM LEVELon 03-04-2025 Magnesium [Mass/Vol] 2.2 mg/dL Normal 1.6-2.4 [facility] Comment on above: Performed By: #### 4 6109 ####[facility] LAB [address] [address] Moody Martinez M.D. [id number] POC GLUCOSE - [facility] 025 Glucose [Mass/Vol] 51 mg/dL Off scale low [address] [place] [address] Comment on above: Order Comment: Criti christian result acted upon time of test. Test performed at bedside. Performed By: #### 4 6932 #### LAB [address] [address] Moody Martinez M.D. [id number] Glucose [Mass/Vol] 354 mg/dL [address] Comment on above: Performed By: #### 4 6932 #### LAB [address] [address] Moody Martinez M.D. [id number] Glucose [Mass/Vol] 338 mg/dL [address] Comment on above: Performed By: #### 4 6932 #### LAB [address] [address] Moody Martinez M.D. [id number] Glucose [Mass/Vol] 258 mg/dL [address] Comment on above: Performed By: #### 4 6932 #### LAB [address] [address] Moody Martinez M.D. [id number] Glucose [Mass/Vol] 242 mg/dL High 65-99 [facility] Comment on above: Performed By: #### 4 6932 #### LAB [address] [address] Moody Martinez M.D. [id number] POTASSIUM LEVELon 03-04-2025 Potassium [Moles/Vol] 4.1 mmol/L Normal 3.5-5.1 [facility] Comment on above: Result Comment: Slig htly Hemolyzed Performed By: #### 4 6351 ####[facility] LAB [address] [address] Moody Martinez M.D. [id number] TROPONIN (ONCE)on 03-04-2025 BASELINE TROPONIN T NG/L 1494 ng/L Off scale high <=22 [facility] Comment on above: Performed By: #### L [id number] ####[facility] [address] [address] Moody Martinez M.D. [id number] TROPONIN T INTERPRETATION Possible acute cardiac injury. Normal [facility] Comment on above: Performed By: #### L [id number] ####[facility] [address] [address] Moody Martinez M.D. [id number] APTT HEPARIN COVERAGEon aPTT Coag (Bld) [Time] 82 s High 23-34 [facility] Comment on above: Order Comment: Thera peutic range for APTT's is 68 - 104 seconds Performed By: #### 4 6932 #### [facility] LAB [address] [address] Moody Martinez M.D. [id number] aPTT Coag (Bld) [Time] 92 s High 23-34 [facility] Comment on above: Order Comment: Thera peutic range for APTT's is 68 - 104 seconds Performed By: #### 4 6848 ####[facility] LAB [address] [address] Moody Martinez M.D. [id number] aPTT Coag (Bld) [Time] 67 s High 23-34 [facility] Comment on above: Order Comment: Injur y/Trauma or Illness?:Illness/Other How long have you had these symptoms (acute/chronic)?:Acute Reason for exam?:cross clamp of aorta for CPB Type of Exam?:Initial Additional signs and symptoms?:cp Performed By: #### 4 6848 #### LAB [address] [place], [place] [address] Moody Martinez M.D. [id number] BASIC METABOLIC PANELon 05-0 Anion gap [Moles/Vol] 15 mmol/L Normal 10-20 [facility] Comment on above: Order Comment: [facility] has implemented the eGFR calculation approach that does not have a coefficient for race that conforms to the NKF-ASN Task Force Recommendations. Performed By: #### 4 6124 #### LAB [address] [address] Moody Martinez M.D. [id number] Calcium [Mass/Vol] 8.3 mg/dL Low 8.4-10.2 [facility] Comment on above: Order Comment: [facility] has implemented the eGFR calculation approach that does not have a coefficient for race that conforms to the NKF-ASN Task Force Recommendations. Performed By: #### 4 6124 #### LAB [address] [place], [place] [address] Moody Martinez M.D. [id number] Chloride [Moles/Vol] 103 mmol/L Normal 98-108 [facility] Comment on above: Order Comment: [facility] has implemented the eGFR calculation approach that does not have a coefficient for race that conforms to the NKF-ASN Task Force Recommendations. Performed By: #### 4 6124 #### LAB [address] [address] Moody Martinez M.D. [id number] Creatinine [Mass/Vol] 2.09 mg/dL High 0.80-1.30 [facility] Comment on above: Order Comment: [facility] has implemented the eGFR calculation approach that does not have a coefficient for race that conforms to the NKF-ASN Task Force Recommendations. Performed By: #### 4 6124 #### LAB [address] [address] Moody Martinez M.D. [id number] EGFR 31 mL/min/1.73 m2 Low >=60 [facility] Comment on above: Order Comment: [facility] has implemented the eGFR calculation approach that does not have a coefficient for race that conforms to the NKF-ASN Task Force Recommendations. Result Comment: Albin mated GFR was calculated using the 2020 CKD-EPI creatinine equation. Performed By: #### 4 6124 #### LAB [address] [address] Moody Martinez M.D. [id number] Glucose [Mass/Vol] 240 mg/dL High 65-99 [facility] Comment on above: Order Comment: [facility] has implemented the eGFR calculation approach that does not have a coefficient for race that conforms to the NKF-ASN Task Force Recommendations. Performed By: #### 4 6124 #### LAB [address] [address] Moody Martinez M.D. [id number] HCO3 (Bld) [Moles/Vol] 26 mmol/L Normal 21-32 [facility] Comment on above: Order Comment: [facility] has implemented the eGFR calculation approach that does not have a coefficient for race that conforms to the NKF-ASN Task Force Recommendations. Performed By: #### 4 6124 #### LAB [address] [address] Moody Martinez M.D. [id number] Potassium [Moles/Vol] 3.6 mmol/L Normal 3.5-5.1 [facility] Comment on above: Order Comment: [facility] has implemented the eGFR calculation approach that does not have a coefficient for race that conforms to the NKF-ASN Task Force Recommendations. Performed By: #### 4 6124 #### LAB [address] [address] Moody Martinez M.D. [id number] Sodium [Moles/Vol] 140 mmol/L Normal 135-145 [facility] Comment on above: Order Comment: [facility] has implemented the eGFR calculation approach that does not have a coefficient for race that conforms to the NKF-ASN Task Force Recommendations. Performed By: #### 4 6124 #### LAB [address] [address] Moody Martinez M.D. [id number] Urea nitrogen [Mass/Vol] 49 mg/dL High 8-25 [facility] Comment on above: Order Comment: [facility] has implemented the eGFR calculation approach that does not have a coefficient for race that conforms to the NKF-ASN Task Force Recommendations. Performed By: #### 4 6124 #### LAB [address] [address] Moody Martinez M.D. [id number] Urea nitrogen/Creatinine [Mass ratio] 23.4 mg/mg High 10.0-20.0 [facility] Comment on above: Order Comment: [facility] has implemented the eGFR calculation approach that does not have a coefficient for race that conforms to the NKF-ASN Task Force Recommendations. Performed By: #### 4 6124 #### LAB [address] [address] Moody Martinez M.D. [id number] CBCon 03-03-2025 AUTO NRBC 0.0 % Normal [facility] Comment on above: Performed By: #### 4 5218 #### LAB [address] [address] Moody Martinez M.D. [id number] AUTO NRBC ABS COUNT 0.00 K/mcL Normal 0.00-0.00 [facility] Comment on above: Performed By: #### 4 5218 #### LAB [address] [address] Moody Martinez M.D. [id number] Erythrocyte distribution width (RBC) [Ratio] 13.5 % Normal 11.6-14.8 [facility] Comment on above: Performed By: #### 4 5218 #### LAB [address] [address] Moody Martinez M.D. [id number] Hematocrit (Bld) [Volume fraction] 28.5 % Low 41.0-53.0 [facility] Comment on above: Performed By: #### 4 5218 #### LAB [address] [address] Moody Martinez M.D. [id number] Hemoglobin (Bld) [Mass/Vol] 9.3 g/dL Low 13.5-17.5 [facility] Comment on above: Performed By: #### 4 5218 #### LAB [address] [address] Moody Martinez M.D. [id number] MCH (RBC) [Entitic mass] 30.8 pg Normal 26.0-34.0 [facility] Comment on above: Performed By: #### 4 5218 #### LAB [address] [address] Moody Martinez M.D. [id number] MCV (RBC) [Entitic vol] 94.4 fL Normal 80.0-100.0 [facility] Comment on above: Performed By: #### 4 5218 #### LAB [address] [address] Moody Martinez M.D. [id number] MEAN CORPUSCULAR HEMOGLOBIN CONC 32.6 g/dL Normal 31.0-37.0 [facility] Comment on above: Performed By: #### 4 5218 #### LAB [address] [address] Moody Martinez M.D. [id number] Platelet mean volume (Bld) [Entitic vol] 11.8 fL Normal 9.4-12.4 [facility] Comment on above: Performed By: #### 4 5218 #### LAB [address] [address] Moody Martinez M.D. [id number] Platelets (Bld) [#/Vol] 159 10*3/uL Normal 150-400 [facility] Comment on above: Performed By: #### 4 5218 ####[facility] LAB [address] [address] Moody Martinez M.D. [id number] RBC (Bld) [#/Vol] 3.02 10*6/uL Low 4.50-5.90 [facility] Comment on above: Performed By: #### 4 5218 ####[facility] LAB [address] [address] Moody Martinez M.D. [id number] WBC (Bld) [#/Vol] 10.19 10*3/uL Normal 4.50-11.00 [facility] Comment on above: Performed By: #### 4 5218 ####[facility] [address] [address] Moody Martinez M.D. [id number] MAGNESIUM LEVELon 03-03-2025 Magnesium [Mass/Vol] 2.3 mg/dL Normal 1.6-2.4 [facility] Comment on above: Performed By: #### 4 6109 ####[facility] LAB [address] [address] Moody Martinez M.D. [id number] POC GLUCOSE [facility] 025 Glucose [Mass/Vol] 221 mg/dL High [address] [place] [address] Comment on above: Performed By: #### L [id number] #### [facility] LAB [address] [address] Moody Martinez M.D. [id number] Glucose [Mass/Vol] 189 mg/dL High [address] [place] [address] Comment on above: Performed By: #### 4 6932 ####[facility] [address] [address] Moody Martinez M.D. [id number] Glucose [Mass/Vol] 91 mg/dL Normal [address] [place] [address] Comment on above: Performed By: #### 4 6932 ####[facility] [address] [address] Moody Martinez M.D. [id number] Glucose [Mass/Vol] 146 mg/dL High 65-99 [facility] Comment on above: Performed By: #### 4 6932 #### LAB [address] [address] Moody Martinez M.D. [id number] TROPONIN (ONCE)on 03-03-2025 BASELINE TROPONIN T NG/L 1524 ng/L Off scale high <=22 [facility] Comment on above: Performed By: #### 4 6932 #### LAB [address] [address] Moody Martinez M.D. [id number] TROPONIN T INTERPRETATION Possible acute cardiac injury. Normal [facility] Comment on above: Performed By: #### 4 6932 #### LAB [address] [address] Moody Martinez M.D. [id number] APTT HEPARIN COVERAGEon aPTT Coag (d) [Time] 97 s High 23-34 [facility] Comment on above: Order Comment: Thera peutic range for APTT's is 68 - 104 seconds Performed By: #### 4 6848 #### LAB [address] [address] Moody Martinez M.D. [id number] BASIC METABOLIC PANELon Anion gap [Moles/Vol] 17 mmol/L Normal 10-20 [facility] Comment on above: Order Comment: [facility] has implemented the eGFR calculation approach that does not have a coefficient for race that conforms to the NKF-ASN Task Force Recommendations. Performed By: #### 4 6124 ####[facility] [address] [address] Moody Martinez M.D. [id number] Calcium [Mass/Vol] 8.7 mg/dL Normal 8.4-10.2 [facility] Comment on above: Order Comment: [facility] has implemented the eGFR calculation approach that does not have a coefficient for race that conforms to the NKF-ASN Task Force Recommendations. Performed By: #### 4 6124 #### LAB [address] [id number] Moody Martinez M.D. [id number] Chloride [Moles/Vol] 101 mmol/L Normal 98-108 [facility] Comment on above: Order Comment: [facility] has implemented the eGFR calculation approach that does not have a coefficient for race that conforms to the NKF-ASN Task Force Recommendations. Performed By: #### 4 6124 ####[facility] [address] [address] Moody Martinez M.D. [id number] Creatinine [Mass/Vol] 2.16 mg/dL High 0.80-1.30 [facility] Comment on above: Order Comment: [facility] has implemented the eGFR calculation approach that does not have a coefficient for race that conforms to the NKF-ASN Task Force Recommendations. Performed By: #### 4 6124 #### LAB [address] [address] Moody Martinez M.D. [id number] EGFR 30 mL/min/1.73 m2 Low >=60 [facility] Comment on above: Order Comment: [facility] has implemented the eGFR calculation approach that does not have a coefficient for race that conforms to the NKF-ASN Task Force Recommendations. Result Comment: Albin mated GFR was calculated using the 2020 CKD-EPI creatinine equation. Performed By: #### 4 6124 ####[facility] [address] [address] Moody Martinez M.D. [id number] Glucose [Mass/Vol] 170 mg/dL High 65-99 [facility] Comment on above: Order Comment: [facility] has implemented the eGFR calculation approach that does not have a coefficient for race that conforms to the NKF-ASN Task Force Recommendations. Performed By: #### 4 6124 ####[facility] [address] [address] Moody Martinez M.D. [id number] HCO3 (Bld) [Moles/Vol] 25 mmol/L Normal 21-32 [facility] Comment on above: Order Comment: [facility] has implemented the eGFR calculation approach that does not have a coefficient for race that conforms to the NKF-ASN Task Force Recommendations. Performed By: #### 4 6124 #### LAB [address] [place], [place] [address] Moody Martinez M.D. [id number] Potassium [Moles/Vol] 3.7 mmol/L Normal 3.5-5.1 [facility] Comment on above: Order Comment: [facility] has implemented the eGFR calculation approach that does not have a coefficient for race that conforms to the NKF-ASN Task Force Recommendations. Performed By: #### 4 6124 #### LAB [address] [address] Moody Martinez M.D. [id number] Sodium [Moles/Vol] 139 mmol/L Normal 135-145 [facility] Comment on above: Order Comment: [facility] has implemented the eGFR calculation approach that does not have a coefficient for race that conforms to the NKF-ASN Task Force Recommendations. Performed By: #### 4 6190 #### LAB [address] [address] Moody Martinez M.D. [id number] Urea nitrogen [Mass/Vol] 44 mg/dL High 8-25 [facility] Comment on above: Order Comment: [facility] has implemented the eGFR calculation approach that does not have a coefficient for race that conforms to the NKF-ASN Task Force Recommendations. Performed By: #### 4 6162 ####[facility] [address] [address] Moody Martinez M.D. [id number] Urea nitrogen/Creatinine [Mass ratio] 20.4 mg/mg High 10.0-20.0 [facility] Comment on above: Order Comment: [facility] has implemented the eGFR calculation approach that does not have a coefficient for race that conforms to the NKF-ASN Task Force Recommendations. Performed By: #### 4 6139 ####[facility] [address] [place], [place] [address] Moody Martinez M.D. [id number] CBCon 03-02-2025 AUTO NRBC 0.0 % Normal [facility] Comment on above: Order Comment: Injur y/Trauma or Illness?:Illness/Other How long have you had these symptoms (acute/chronic)?:Acute Reason for exam?:sob History of cancer?:. Surgeries, chemotherapy, or radiation?:cardiac catheterization Type of Exam?:Initial Additional signs and symptoms?:n Performed By: #### 4 [id number] #### LAB [address] [place], [place] [address] Moody Martinez M.D. [id number] AUTO NRBC ABS COUNT 0.00 K/mcL Normal 0.00-0.00 [facility] Comment on above: Order Comment: Injur y/Trauma or Illness?:Illness/Other How long have you had these symptoms (acute/chronic)?:Acute Reason for exam?:sob History of cancer?:. Surgeries, chemotherapy, or radiation?:cardiac catheterization Type of Exam?:Initial Additional signs and symptoms?:n Performed By: #### 4 [id number] #### LAB [address] [place], [place] [address] Moody Martinez M.D. [id number] Erythrocyte distribution width (RBC) [Ratio] 13.4 % Normal 11.6-14.8 [facility] Comment on above: Order Comment: Injur y/Trauma or Illness?:Illness/Other How long have you had these symptoms (acute/chronic)?:Acute Reason for exam?:sob History of cancer?:. Surgeries, chemotherapy, or radiation?:cardiac catheterization Type of Exam?:Initial Additional signs and symptoms?:n Performed By: #### 4 [id number] #### LAB [address] [place] [address] Moody Martinez M.D. [id number] Hematocrit (Bld) [Volume fraction] 31.3 % Low 41.0-53.0 [facility] Comment on above: Order Comment: Injur y/Trauma or Illness?:Illness/Other How long have you had these symptoms (acute/chronic)?:Acute Reason for exam?:sob History of cancer?:. Surgeries, chemotherapy, or radiation?:cardiac catheterization Type of Exam?:Initial Additional signs and symptoms?:n Performed By: #### 4 [id number] #### LAB [address] [place] [address] Moody Martinez M.D. [id number] Hemoglobin (Bld) [Mass/Vol] 10.3 g/dL Low 13.5-17.5 [facility] Comment on above: Order Comment: Injur y/Trauma or Illness?:Illness/Other How long have you had these symptoms (acute/chronic)?:Acute Reason for exam?:sob History of cancer?:. Surgeries, chemotherapy, or radiation?:cardiac catheterization Type of Exam?:Initial Additional signs and symptoms?:n Performed By: #### 4 [id number] #### LAB [address] [place] [address] Moody Martinez M.D. [id number] MCH (RBC) [Entitic mass] 31.0 pg Normal 26.0-34.0 [facility] Comment on above: Order Comment: Injur y/Trauma or Illness?:Illness/Other How long have you had these symptoms (acute/chronic)?:Acute Reason for exam?:sob History of cancer?:. Surgeries, chemotherapy, or radiation?:cardiac catheterization Type of Exam?:Initial Additional signs and symptoms?:n Performed By: #### 4 [id number] #### LAB [address] [place] [address] Moody Martinez M.D. [id number] MCV (RBC) [Entitic vol] 94.3 fL Normal 80.0-100.0 [facility] Comment on above: Order Comment: Injur y/Trauma or Illness?:Illness/Other How long have you had these symptoms (acute/chronic)?:Acute Reason for exam?:sob History of cancer?:. Surgeries, chemotherapy, or radiation?:cardiac catheterization Type of Exam?:Initial Additional signs and symptoms?:n Performed By: #### 4 [id number] #### LAB [address] [place] [address] Moody Martinez M.D. [id number] MEAN CORPUSCULAR HEMOGLOBIN CONC 32.9 g/dL Normal 31.0-37.0 [facility] Comment on above: Order Comment: Injur y/Trauma or Illness?:Illness/Other How long have you had these symptoms (acute/chronic)?:Acute Reason for exam?:sob History of cancer?:. Surgeries, chemotherapy, or radiation?:cardiac catheterization Type of Exam?:Initial Additional signs and symptoms?:n Performed By: #### 4 [id number] #### LAB [address] [place] [address] Moody Martinez M.D. [id number] Platelet mean volume (Bld) [Entitic vol] 11.6 fL Normal 9.4-12.4 [facility] Comment on above: Order Comment: Injur y/Trauma or Illness?:Illness/Other How long have you had these symptoms (acute/chronic)?:Acute Reason for exam?:sob History of cancer?:. Surgeries, chemotherapy, or radiation?:cardiac catheterization Type of Exam?:Initial Additional signs and symptoms?:n Performed By: #### 4 [id number] #### LAB [address] [place] [address] Moody Martinez M.D. [id number] Platelets (Bld) [#/Vol] 176 10*3/uL Normal 150-400 [facility] Comment on above: Order Comment: Injur y/Trauma or Illness?:Illness/Other How long have you had these symptoms (acute/chronic)?:Acute Reason for exam?:sob History of cancer?:. Surgeries, chemotherapy, or radiation?:cardiac catheterization Type of Exam?:Initial Additional signs and symptoms?:n Performed By: #### 4 [id number] #### LAB [address] [place] [address] Moody Martinez M.D. [id number] RBC (Bld) [#/Vol] 3.32 10*6/uL Low 4.50-5.90 [facility] Comment on above: Order Comment: Injur y/Trauma or Illness?:Illness/Other How long have you had these symptoms (acute/chronic)?:Acute Reason for exam?:sob History of cancer?:. Surgeries, chemotherapy, or radiation?:cardiac catheterization Type of Exam?:Initial Additional signs and symptoms?:n Performed By: #### 4 [id number] #### LAB [address] [place] [address] Moody Martinez M.D. [id number] WBC (Bld) [#/Vol] 14.08 10*3/uL High 4.50-11.00 [facility] Comment on above: Order Comment: Injur y/Trauma or Illness?:Illness/Other How long have you had these symptoms (acute/chronic)?:Acute Reason for exam?:sob History of cancer?:. Surgeries, chemotherapy, or radiation?:cardiac catheterization Type of Exam?:Initial Additional signs and symptoms?:n Performed By: #### 4 [id number] #### LAB [address] [place] [address] Moody Martinez M.D. [id number] AUTO NRBC 0.0 % Normal [facility] Comment on above: Performed By: #### 4 [id number] #### LAB [address] [place] [address] Moody Martinez M.D. [id number] AUTO NRBC ABS COUNT 0.00 K/mcL Normal 0.00-0.00 [facility] Comment on above: Performed By: #### 4 5218 #### LAB [address] [place] [address] Moody Martinez M.D. [id number] Erythrocyte distribution width (RBC) [Ratio] 13.4 % Normal 11.6-14.8 [facility] Comment on above: Performed By: #### 4 5218 #### LAB [address] [place] [address] Moody Martinez M.D. [id number] Hematocrit (Bld) [Volume fraction] 34.4 % Low 41.0-53.0 [facility] Comment on above: Performed By: #### 4 5218 #### LAB [address] [place] [address] Moody Martinez M.D. [id number] Hemoglobin (Bld) [Mass/Vol] 11.2 g/dL Low 13.5-17.5 [facility] Comment on above: Performed By: #### 4 5218 #### LAB [address] [place] [address] Moody Martinez M.D. [id number] MCH (RBC) [Entitic mass] 31.1 pg Normal 26.0-34.0 [facility] Comment on above: Performed By: #### 4 5218 #### LAB [address] [place] [address] Moody Martinez M.D. [id number] MCV (RBC) [Entitic vol] 95.6 fL Normal 80.0-100.0 [facility] Comment on above: Performed By: #### 4 5218 #### LAB [address] [place] [address] Moody Martinez M.D. [id number] MEAN CORPUSCULAR HEMOGLOBIN CONC 32.6 g/dL Normal 31.0-37.0 [facility] Comment on above: Performed By: #### 4 5218 #### LAB [address] [place] [address] Moody Martinez M.D. [id number] Platelet mean volume (Bld) [Entitic vol] 11.4 fL Normal 9.4-12.4 [facility] Comment on above: Performed By: #### 4 5218 #### LAB [address] [place] [address] Moody Martinez M.D. [id number] Platelets (Bld) [#/Vol] 189 10*3/uL Normal 150-400 [facility] Comment on above: Performed By: #### 4 5218 #### LAB [address] [place] [address] Moody Martinez M.D. [id number] RBC (Bld) [#/Vol] 3.60 10*6/uL Low 4.50-5.90 [facility] Comment on above: Performed By: #### 4 5218 #### LAB [address] [place] [address] Moody Martinez M.D. [id number] WBC (Bld) [#/Vol] 11.96 10*3/uL High 4.50-11.00 [facility] Comment on above: Performed By: #### 4 5218 ####[facility] [address] [place], [place] [address] Moody Martinez M.D. [id number] CONSULTon 03-02-2025 CONSULT General Cardiology Inpatient Consult Heart & Vascular [facility] 03/02/2025 Diogenes Garay MD [facility] Patient: Enoc Armando Date of : 1945 [...] for further details. Diogenes Garay MD [facility] Non-Invasive Cardiology [facility] Heart and Vascular Subjective Reason for [...] ventricle systolic pressure is 49 mmHg. 10/27/[address] [facility] Left Main The vessel is moderate [...] Skin: Negative. (more content not included)... Normal [facility] ECHOCARDIOGRAM COMPLETEon ECHOCARDIOGRAM COMPLETE Patient Info Name: ENOC ARMANDO Age: 79 years : 1945 Gender: Male Ht: 170 cm Wt: 64 kg BSA: 1.74 m2 HR: 81 bpm BP: 112 / 57 mmHg Heart Rhythm: Sinus Rhythm Technical Quality: Good Exam Date: 03/02/2025 2:27 PM Patient Status: Inpatient Shine Worker: Mikel Olvera RCDS Exam Type: ECHOCARDIOGRAM COMPLETE Study Info Indications - Chest pain R07.9 - Chest pain, unspecified Referring Physician: TANISHA Alves; [id number] BMI: 22.08 kg/m2 Summary 1. Left ventricular [...] Factors Hypertension: Yes Dyslipidemia: Yes Myocardial Infarction (MT): No Congestive Heart Failure (CHF): Hx CHF [...] mmHg MV VTI 35 cm MV Decel Walsh 390 cm/s2 MV PHT 75 ms MV [...] Annular TDI (more content not included)... Normal [facility] MAGNESIUM LEVELon 03-02-2025 Magnesium [Mass/Vol] 2.2 mg/dL Normal 1.6-2.4 [facility] Comment on above: Performed By: #### 4 6109 ####[facility] [address] [place] [address] Moody Martinez M.D. [id number] NT PRO BNPon 03-02-2025 Natriuretic peptide B (Bld) [Mass/Vol] 33509 pg/mL High 0-300 [facility] Comment on above: Order Comment: Pride Study Cut-offsRule In:< /= 50 Years >450 pg/mL51 Years - 75 Years >900 pg/mL76 Years - 99 Years >1800 pg/mLRule Out:All patients <300 pg/mL Performed By: #### 4 7395 #### LAB [address] [place], [place] [address] Moody Martinez M.D. [id number] POC GLUCOSE [facility] 025 Glucose [Mass/Vol] 287 mg/dL [address] Comment on above: Performed By: #### 4 6932 ####[facility] [address] [place] [address] Moody Martinez M.D. [id number] Glucose [Mass/Vol] 137 mg/dL [address] Comment on above: Performed By: #### 4 6932 ####[facility] [address] [place] [address] Moody Martinez M.D. [id number] Glucose [Mass/Vol] 252 mg/dL [address] Comment on above: Performed By: #### 4 6932 ####[facility] [address] [place] [address] Moody Martinez M.D. [id number] Glucose [Mass/Vol] 332 mg/dL [address] Comment on above: Performed By: #### 4 6932 #### LAB [address] [place] [address] Moody Martinez M.D. [id number] Glucose [Mass/Vol] 286 mg/dL [address] Comment on above: Performed By: #### 4 6932 ####[facility] [address] [place] [address] Moody Martinez M.D. [id number] Glucose [Mass/Vol] 168 mg/dL [address] Comment on above: Performed By: #### L [id number] #### [facility] [address] [place] [address] Moody Martinez M.D. [id number] Glucose [Mass/Vol] 186 mg/dL High 65-99 [facility] Comment on above: Performed By: #### 4 6932 #### LAB [address] [place] [address] Moody Martinez M.D. [id number] POTASSIUM LEVELon 03-02-2025 Potassium [Moles/Vol] 3.9 mmol/L Normal 3.5-5.1 [facility] Comment on above: Performed By: #### 4 6351 #### LAB [address] [place] [address] Moody Martinez M.D. [id number] TROPONIN X 2 (NOW AND REPEAT IN 2 HOURS)on 03-02-2025 TROPONIN T DELTA CHANGE INTERPRETATION Delta troponin requires at least 2 hours between collections. [facility] Comment on above: Performed By: #### 4 6608 #### LAB [address] [place] [address] Moody Martinez M.D. [id number] TROPONIN T NG/L 1447 ng/L Off scale high <=22 [facility] Comment on above: Performed By: #### 4 6608 #### LAB [address] [place] [address] Moody Martinez M.D. [id number] BASELINE TROPONIN T NG/L 1309 ng/L Off scale high <=22 [facility] Comment on above: Performed By: #### 4 6608 #### LAB [address] [place] [address] Moody Martinez M.D. [id number] TROPONIN T INTERPRETATION Possible acute cardiac injury. [facility] Comment on above: Performed By: #### 4 6608 #### LAB [address] [place] [address] Moody Martinez M.D. [id number] XR CHEST PA/APon 03-02-2025 XR CHEST PA/AP [...] organism, unspecified whether acute organ dysfunction present ([facility]) J18.9 Pneumonia E11.10 DKA (diabetic ketoacidosis) ([facility]) COMPARISON: 02/28/2025. TECHNIQUE: Single portable semierect view. FINDINGS: Cardiac silhouette and mediastinal contours are stable. No pneumothorax or large pleural effusion. There is development of vssnajhm-na-koecjk bilateral mixed interstitial and alveolar opacities in both lungs consistent with pulmonary edema; although, underlying pneumonia/aspiration is not excluded. IMPRESSION: Development of lyzajfar-vc-qbyhns mixed interstitial and alveolar opacities in both lungs consistent with pulmonary edema. Underlying pneumonia/aspiration not excluded. No pneumothorax or large pleural effusion. JAR/trw Workstation ID: [id number] Dictated by: KAHLIL VARGHESE on WedMarch 02, 2025 2:36:56 PM EDT Transcribed by: AFUA RALPH on WedMarch 02, 2025 3:15:52 PM EDT Finalized by: KAHLIL VARGHESE on WedMarch 02, 2025 3:23:59 PM EDT Normal [facility] Comment on above: Order Comment: Injur y/Trauma or Illness?:Illness/OtherHow long have you had these symptoms (acute/chronic)?:AcuteReason for exam?:SOBHistory of cancer?:.Surgeries, chemotherapy, or radiation?:cardiac catheterizationType of Exam?:InitialAdditional signs and symptoms?:. BASIC METABOLIC PANELon 05-0 Anion gap [Moles/Vol] 15 mmol/L Normal 10-20 [facility] Comment on above: Order Comment: [facility] has implemented the eGFR calculation approach that does not have a coefficient for race that conforms to the NKF-ASN Task Force Recommendations. Performed By: #### 4 6124 ####[facility] [address] [place], [place] [address] Moody Martinez M.D. [id number] Calcium [Mass/Vol] 8.7 mg/dL Normal 8.4-10.2 [facility] Comment on above: Order Comment: [facility] has implemented the eGFR calculation approach that does not have a coefficient for race that conforms to the NKF-ASN Task Force Recommendations. Performed By: #### 4 6124 #### LAB [address] [place], [place] [address] Moody Martinez M.D. [id number] Chloride [Moles/Vol] 104 mmol/L Normal 98-108 [facility] Comment on above: Order Comment: [facility] has implemented the eGFR calculation approach that does not have a coefficient for race that conforms to the NKF-ASN Task Force Recommendations. Performed By: #### 4 6124 #### LAB [address] [place] [id number] Moody Martinez M.D. [id number] Creatinine [Mass/Vol] 2.49 mg/dL High 0.80-1.30 [facility] Comment on above: Order Comment: [facility] has implemented the eGFR calculation approach that does not have a coefficient for race that conforms to the NKF-ASN Task Force Recommendations. Performed By: #### 4 6124 #### LAB [address] [place] [address] Moody Martinez M.D. [id number] EGFR 25 mL/min/1.73 m2 Low >=60 [facility] Comment on above: Order Comment: [facility] has implemented the eGFR calculation approach that does not have a coefficient for race that conforms to the NKF-ASN Task Force Recommendations. Result Comment: Albin mated GFR was calculated using the 2020 CKD-EPI creatinine equation. Performed By: #### 4 6124 #### LAB [address] [place] [address] Moody Martinez M.D. [id number] Glucose [Mass/Vol] 86 mg/dL Normal 65-99 [facility] Comment on above: Order Comment: [facility] has implemented the eGFR calculation approach that does not have a coefficient for race that conforms to the NKF-ASN Task Force Recommendations. Performed By: #### 4 6124 #### LAB [address] [place] [address] Moody Martinez M.D. [id number] HCO3 (Bld) [Moles/Vol] 26 mmol/L Normal 21-32 [facility] Comment on above: Order Comment: [facility] has implemented the eGFR calculation approach that does not have a coefficient for race that conforms to the NKF-ASN Task Force Recommendations. Performed By: #### 4 6124 #### LAB [address] [place], [place] [address] Moody Martinez M.D. [id number] Potassium [Moles/Vol] 4.2 mmol/L Normal 3.5-5.1 [facility] Comment on above: Order Comment: [facility] has implemented the eGFR calculation approach that does not have a coefficient for race that conforms to the NKF-ASN Task Force Recommendations. Performed By: #### 4 6124 #### LAB [address] [place], [place] [address] Moody Martinez M.D. [id number] Sodium [Moles/Vol] 141 mmol/L Normal 135-145 [facility] Comment on above: Order Comment: [facility] has implemented the eGFR calculation approach that does not have a coefficient for race that conforms to the NKF-ASN Task Force Recommendations. Performed By: #### 4 6124 #### LAB [address] [place], [place] [address] Moody Martinez M.D. [id number] Urea nitrogen [Mass/Vol] 47 mg/dL High 8-25 [facility] Comment on above: Order Comment: [facility] has implemented the eGFR calculation approach that does not have a coefficient for race that conforms to the NKF-ASN Task Force Recommendations. Performed By: #### 4 6124 #### LAB [address] [place], [place] [address] Moody Martinez M.D. [id number] Urea nitrogen/Creatinine [Mass ratio] 18.9 mg/mg Normal 10.0-20.0 [facility] Comment on above: Order Comment: [facility] has implemented the eGFR calculation approach that does not have a coefficient for race that conforms to the NKF-ASN Task Force Recommendations. Performed By: #### 4 6124 #### LAB [address] [place] [address] Moody Martinez M.D. [id number] CBCon 03-01-2025 AUTO NRBC 0.0 % Normal [facility] Comment on above: Performed By: #### 4 5218 #### LAB [address] [place] [address] Moody Martinez M.D. [id number] AUTO NRBC ABS COUNT 0.00 K/mcL Normal 0.00-0.00 [facility] Comment on above: Performed By: #### 4 5218 #### LAB [address] [place] [address] Moody Martinez M.D. [id number] Erythrocyte distribution width (RBC) [Ratio] 13.7 % Normal 11.6-14.8 [facility] Comment on above: Performed By: #### 4 5218 #### LAB [address] [place] [address] Moody Martinez M.D. [id number] Hematocrit (Bld) [Volume fraction] 29.8 % Low 41.0-53.0 [facility] Comment on above: Performed By: #### 4 5218 #### LAB [address] [place] [address] Moody Martinez M.D. [id number] Hemoglobin (Bld) [Mass/Vol] 9.9 g/dL Low 13.5-17.5 [facility] Comment on above: Performed By: #### 4 5218 #### LAB [address] [place] [address] Moody Martinez M.D. [id number] MCH (RBC) [Entitic mass] 31.0 pg Normal 26.0-34.0 [facility] Comment on above: Performed By: #### 4 5218 #### LAB [address] [place] [address] Moody Martinez M.D. [id number] MCV (RBC) [Entitic vol] 93.4 fL Normal 80.0-100.0 [facility] Comment on above: Performed By: #### 4 5218 #### LAB [address] [place] [address] Moody Martinez M.D. [id number] MEAN CORPUSCULAR HEMOGLOBIN CONC 33.2 g/dL Normal 31.0-37.0 [facility] Comment on above: Performed By: #### 4 5218 #### LAB [address] [place] [address] Moody Martinez M.D. [id number] Platelet mean volume (Bld) [Entitic vol] 10.9 fL Normal 9.4-12.4 [facility] Comment on above: Performed By: #### 4 5218 #### LAB [address] [place] [address] Moody Martinez M.D. [id number] Platelets (Bld) [#/Vol] 186 10*3/uL Normal 150-400 [facility] Comment on above: Performed By: #### 4 5218 #### LAB [address] [place] [address] Moody Martinez M.D. [id number] RBC (Bld) [#/Vol] 3.19 10*6/uL Low 4.50-5.90 [facility] Comment on above: Performed By: #### 4 5218 #### LAB [address] [place] [address] Moody Martinez M.D. [id number] WBC (Bld) [#/Vol] 15.37 10*3/uL High 4.50-11.00 [facility] Comment on above: Performed By: #### 4 5218 #### LAB [address] [place] [address] Moody Martinez M.D. [id number] MAGNESIUM LEVELon 03-01-2025 Magnesium [Mass/Vol] 2.1 mg/dL Normal 1.6-2.4 [facility] Comment on above: Performed By: #### 4 6109 #### LAB [address] [place] [address] Moody Martinez M.D. [id number] PHOSPHORUSon 03-01-2025 Phosphate [Mass/Vol] 4.3 mg/dL High 2.3-3.7 [facility] Comment on above: Performed By: #### 4 6299 ####[facility] [address] [place] [address] Moody Martinez M.D. [id number] POC GLUCOSE - [facility] 025 Glucose [Mass/Vol] 249 mg/dL High -[address] [place] [address] Comment on above: Performed By: #### 4 6932 ####[facility] [address] [place] [address] Moody Martinez M.D. [id number] Glucose [Mass/Vol] 79 mg/dL Normal [address] [place] [address] Comment on above: Performed By: #### 4 6932 ####[facility] [address] [place] [address] Moody Martinez M.D. [id number] Glucose [Mass/Vol] 237 mg/dL High [address] [place] [address] Comment on above: Performed By: #### 4 6932 ####[facility] [address] [place] [address] Moody Martinez M.D. [id number] Glucose [Mass/Vol] 85 mg/dL Normal [address] [place] [address] Comment on above: Performed By: #### 4 6932 ####[facility] [address] [place] [address] Moody Martinez M.D. [id number] Glucose [Mass/Vol] 167 mg/dL High [address] [place] [address] Comment on above: Performed By: #### 4 6930 ####[facility] [address] [place] [address] Moody Martinez M.D. [id number] BASIC METABOLIC PANELon 02-01 Anion gap [Moles/Vol] 16 mmol/L Normal 10-20 [facility] Comment on above: Order Comment: [facility] has implemented the eGFR calculation approach that does not have a coefficient for race that conforms to the NKF-ASN Task Force Recommendations. Performed By: #### 4 4014 #### LAB [address] [place] [address] Moody Martinez M.D. [id number] Calcium [Mass/Vol] 9.5 mg/dL Normal 8.4-10.2 [facility] Comment on above: Order Comment: [facility] has implemented the eGFR calculation approach that does not have a coefficient for race that conforms to the NKF-ASN Task Force Recommendations. Performed By: #### 4 4014 #### [facility] [address] [place] [address] Moody Martinez M.D. [id number] Chloride [Moles/Vol] 103 mmol/L Normal 98-108 [facility] Comment on above: Order Comment: [facility] has implemented the eGFR calculation approach that does not have a coefficient for race that conforms to the NKF-ASN Task Force Recommendations. Performed By: #### 4 4014 #### LAB [address] [place] [address] Moody Martinez M.D. [id number] Creatinine [Mass/Vol] 2.61 mg/dL High 0.80-1.30 [facility] Comment on above: Order Comment: [facility] has implemented the eGFR calculation approach that does not have a coefficient for race that conforms to the NKF-ASN Task Force Recommendations. Performed By: #### 4 4014 #### LAB [address] [address] Moody Martinez M.D. [id number] EGFR 24 mL/min/1.73 m2 Low >=60 [facility] Comment on above: Order Comment: [facility] has implemented the eGFR calculation approach that does not have a coefficient for race that conforms to the NKF-ASN Task Force Recommendations. Result Comment: Albin mated GFR was calculated using the 2020 CKD-EPI creatinine equation. Performed By: #### 4 4014 #### LAB [address] [address] Moody Martinez M.D. [id number] Glucose [Mass/Vol] 138 mg/dL High 65-99 [facility] Comment on above: Order Comment: [facility] has implemented the eGFR calculation approach that does not have a coefficient for race that conforms to the NKF-ASN Task Force Recommendations. Performed By: #### 4 4014 #### MH LAB [address] [address] Moody Martinez M.D. [id number] HCO3 (Bld) [Moles/Vol] 23 mmol/L Normal 21-32 [facility] Comment on above: Order Comment: [facility] has implemented the eGFR calculation approach that does not have a coefficient for race that conforms to the NKF-ASN Task Force Recommendations. Performed By: #### 4 4014 #### LAB [address] [address] Moody Martinez M.D. [id number] Potassium [Moles/Vol] 4.0 mmol/L Normal 3.5-5.1 [facility] Comment on above: Order Comment: [facility] has implemented the eGFR calculation approach that does not have a coefficient for race that conforms to the NKF-ASN Task Force Recommendations. Performed By: #### 4 4014 #### MH LAB [address] [address] Moody Martinez M.D. [id number] Sodium [Moles/Vol] 138 mmol/L Normal 135-145 [facility] Comment on above: Order Comment: [facility] has implemented the eGFR calculation approach that does not have a coefficient for race that conforms to the NKF-ASN Task Force Recommendations. Performed By: #### 4 4014 #### MH LAB [address] [address] Moody Martinez M.D. [id number] Urea nitrogen [Mass/Vol] 50 mg/dL High 8-25 [facility] Comment on above: Order Comment: [facility] has implemented the eGFR calculation approach that does not have a coefficient for race that conforms to the NKF-ASN Task Force Recommendations. Performed By: #### 4 4014 #### LAB [address] [place], [place] [address] Moody Martinez M.D. [id number] Urea nitrogen/Creatinine [Mass ratio] 19.2 mg/mg Normal 10.0-20.0 [facility] Comment on above: Order Comment: [facility] has implemented the eGFR calculation approach that does not have a coefficient for race that conforms to the NKF-ASN Task Force Recommendations. Performed By: #### 4 4014 #### MH LAB [address] [place], [place] [address] Moody Martinez M.D. [id number] Anion gap [Moles/Vol] 22 mmol/L High 10-20 [facility] Comment on above: Order Comment: Injur y/Trauma or Illness?:Illness/Other How long have you had these symptoms (acute/chronic)?:Acute Reason for exam?:cross clamp of aorta for CPB Type of Exam?:Initial Additional signs and symptoms?:cp Performed By: #### 4 6124 ####[facility] LAB [address] [place], [place] [address] Moody Martinez M.D. [id number] Calcium [Mass/Vol] 9.6 mg/dL Normal 8.4-10.2 [facility] Comment on above: Order Comment: Injur y/Trauma or Illness?:Illness/Other How long have you had these symptoms (acute/chronic)?:Acute Reason for exam?:cross clamp of aorta for CPB Type of Exam?:Initial Additional signs and symptoms?:cp Performed By: #### 4 6124 ####[facility] LAB [address] [place], [place] [address] Moody Martinez M.D. [id number] Chloride [Moles/Vol] 100 mmol/L Normal 98-108 [facility] Comment on above: Order Comment: Injur y/Trauma or Illness?:Illness/Other How long have you had these symptoms (acute/chronic)?:Acute Reason for exam?:cross clamp of aorta for CPB Type of Exam?:Initial Additional signs and symptoms?:cp Performed By: #### 4 6156 #### LAB [address] [place], [place] [address] Moody Martinez M.D. [id number] Creatinine [Mass/Vol] 2.69 mg/dL High 0.80-1.30 [facility] Comment on above: Order Comment: Injur y/Trauma or Illness?:Illness/Other How long have you had these symptoms (acute/chronic)?:Acute Reason for exam?:cross clamp of aorta for CPB Type of Exam?:Initial Additional signs and symptoms?:cp Performed By: #### 4 6124 #### LAB [address] [place], [place] [address] Moody Martinez M.D. [id number] EGFR 23 mL/min/1.73 m2 Low >=60 [facility] Comment on above: Order Comment: Injur y/Trauma or Illness?:Illness/Other How long have you had these symptoms (acute/chronic)?:Acute Reason for exam?:cross clamp of aorta for CPB Type of Exam?:Initial Additional signs and symptoms?:cp Result Comment: Albin mated GFR was calculated using the 2020 CKD-EPI creatinine equation. Performed By: #### 4 6124 #### LAB [address] [place], [place] [address] Moody Martinez M.D. [id number] Glucose [Mass/Vol] 426 mg/dL Off scale high 65-99 [facility] Comment on above: Order Comment: Injur y/Trauma or Illness?:Illness/Other How long have you had these symptoms (acute/chronic)?:Acute Reason for exam?:cross clamp of aorta for CPB Type of Exam?:Initial Additional signs and symptoms?:cp Performed By: #### 4 6124 #### LAB [address] [place], [place] [address] Moody Martinez M.D. [id number] HCO3 (Bld) [Moles/Vol] 19 mmol/L Low 21-32 [facility] Comment on above: Order Comment: Injur y/Trauma or Illness?:Illness/Other How long have you had these symptoms (acute/chronic)?:Acute Reason for exam?:cross clamp of aorta for CPB Type of Exam?:Initial Additional signs and symptoms?:cp Performed By: #### 4 6124 #### LAB [address] [place], [place] [address] Moody Martinez M.D. [id number] Potassium [Moles/Vol] 4.0 mmol/L Normal 3.5-5.1 [facility] Comment on above: Order Comment: Injur y/Trauma or Illness?:Illness/Other How long have you had these symptoms (acute/chronic)?:Acute Reason for exam?:cross clamp of aorta for CPB Type of Exam?:Initial Additional signs and symptoms?:cp Performed By: #### 4 6124 #### LAB [address] [address] Moody Martinez M.D. [id number] Sodium [Moles/Vol] 137 mmol/L Normal 135-145 [facility] Comment on above: Order Comment: Injur y/Trauma or Illness?:Illness/Other How long have you had these symptoms (acute/chronic)?:Acute Reason for exam?:cross clamp of aorta for CPB Type of Exam?:Initial Additional signs and symptoms?:cp Performed By: #### 4 6124 #### LAB [address] [id number] Moody Martinez M.D. [id number] Urea nitrogen [Mass/Vol] 51 mg/dL High 8- [facility] Comment on above: Order Comment: Injur y/Trauma or Illness?:Illness/Other How long have you had these symptoms (acute/chronic)?:Acute Reason for exam?:cross clamp of aorta for CPB Type of Exam?:Initial Additional signs and symptoms?:cp Performed By: #### 4 6124 #### LAB [address] [id number] Moody Martinez M.D. [id number] Urea nitrogen/Creatinine [Mass ratio] 19.0 mg/mg Normal 10.0-20.0 [facility] Comment on above: Order Comment: Injur y/Trauma or Illness?:Illness/Other How long have you had these symptoms (acute/chronic)?:Acute Reason for exam?:cross clamp of aorta for CPB Type of Exam?:Initial Additional signs and symptoms?:cp Performed By: #### 4 6124 #### LAB [address] [place], [place] [address] Moody Martinez M.D. [id number] Anion gap [Moles/Vol] 27 mmol/L High 10-20 [facility] Comment on above: Order Comment: [facility] has implemented the eGFR calculation approach that does not have a coefficient for race that conforms to the NKF-ASN Task Force Recommendations. Performed By: #### 4 6124 #### LAB [address] [id number] Moody Martinez M.D. [id number] Calcium [Mass/Vol] 9.6 mg/dL Normal 8.4-10.2 [facility] Comment on above: Order Comment: [facility] has implemented the eGFR calculation approach that does not have a coefficient for race that conforms to the NKF-ASN Task Force Recommendations. Performed By: #### 4 6124 #### LAB [address] [address] Moody Martinez M.D. [id number] Chloride [Moles/Vol] 97 mmol/L Low 98-108 [facility] Comment on above: Order Comment: [facility] has implemented the eGFR calculation approach that does not have a coefficient for race that conforms to the NKF-ASN Task Force Recommendations. Performed By: #### 4 6124 #### LAB [address] [address] Moody Martinez M.D. [id number] Creatinine [Mass/Vol] 2.72 mg/dL High 0.80-1.30 [facility] Comment on above: Order Comment: [facility] has implemented the eGFR calculation approach that does not have a coefficient for race that conforms to the NKF-ASN Task Force Recommendations. Performed By: #### 4 6104 #### LAB [address] [id number] Moody Martinez M.D. [id number] EGFR 23 mL/min/1.73 m2 Low >=60 [facility] Comment on above: Order Comment: [facility] has implemented the eGFR calculation approach that does not have a coefficient for race that conforms to the NKF-ASN Task Force Recommendations. Result Comment: Albin mated GFR was calculated using the 2020 CKD-EPI creatinine equation. Performed By: #### 4 6100 #### LAB [address] [address] Moody Martinez M.D. [id number] Glucose [Mass/Vol] 529 mg/dL Off scale high 65-99 [facility] Comment on above: Order Comment: [facility] has implemented the eGFR calculation approach that does not have a coefficient for race that conforms to the NKF-ASN Task Force Recommendations. Performed By: #### 4 6124 ####[facility] LAB [address] [address] Moody Martinez M.D. [id number] HCO3 (Bld) [Moles/Vol] 17 mmol/L Low 21-32 [facility] Comment on above: Order Comment: [facility] has implemented the eGFR calculation approach that does not have a coefficient for race that conforms to the NKF-ASN Task Force Recommendations. Performed By: #### 4 6112 #### LAB [address] [address] Moody Martinez M.D. [id number] Potassium [Moles/Vol] 4.5 mmol/L Normal 3.5-5.1 [facility] Comment on above: Order Comment: [facility] has implemented the eGFR calculation approach that does not have a coefficient for race that conforms to the NKF-ASN Task Force Recommendations. Performed By: #### 4 6124 ####[facility] LAB [address] [address] Moody Martinez M.D. [id number] Sodium [Moles/Vol] 136 mmol/L Normal 135-145 [facility] Comment on above: Order Comment: [facility] has implemented the eGFR calculation approach that does not have a coefficient for race that conforms to the NKF-ASN Task Force Recommendations. Performed By: #### 4 6124 ####[facility] LAB [address] [place], [place] [address] Moody Martinez M.D. [id number] Urea nitrogen [Mass/Vol] 52 mg/dL High 8- [facility] Comment on above: Order Comment: [facility] has implemented the eGFR calculation approach that does not have a coefficient for race that conforms to the NKF-ASN Task Force Recommendations. Performed By: #### 4 6124 #### LAB [address] [address] Moody Martinez M.D. [id number] Urea nitrogen/Creatinine [Mass ratio] 19.1 mg/mg Normal 10.0-20.0 [facility] Comment on above: Order Comment: [facility] has implemented the eGFR calculation approach that does not have a coefficient for race that conforms to the NKF-ASN Task Force Recommendations. Performed By: #### 4 6124 #### LAB [address] [address] Moody Martinez M.D. [id number] Anion gap [Moles/Vol] 28 mmol/L High 10- [facility] Comment on above: Order Comment: Injur y/Trauma or Illness?:Illness/Other How long have you had these symptoms (acute/chronic)?:Acute Reason for exam?:sob History of cancer?:. Surgeries, chemotherapy, or radiation?:cardiac catheterization Type of Exam?:Initial Additional signs and symptoms?:n Performed By: #### 4 6124 #### LAB [address] [address] Moody Martinez M.D. [id number] Calcium [Mass/Vol] 9.6 mg/dL Normal 8.4-10.2 [facility] Comment on above: Order Comment: Injur y/Trauma or Illness?:Illness/Other How long have you had these symptoms (acute/chronic)?:Acute Reason for exam?:sob History of cancer?:. Surgeries, chemotherapy, or radiation?:cardiac catheterization Type of Exam?:Initial Additional signs and symptoms?:n Performed By: #### 4 6124 #### LAB [address] [address] Moody Martinez M.D. [id number] Chloride [Moles/Vol] 97 mmol/L Low 98-108 [facility] Comment on above: Order Comment: Injur y/Trauma or Illness?:Illness/Other How long have you had these symptoms (acute/chronic)?:Acute Reason for exam?:sob History of cancer?:. Surgeries, chemotherapy, or radiation?:cardiac catheterization Type of Exam?:Initial Additional signs and symptoms?:n Performed By: #### 4 6124 #### LAB [address] [address] Moody Martinez M.D. [id number] Creatinine [Mass/Vol] 2.66 mg/dL High 0.80-1.30 [facility] Comment on above: Order Comment: Injur y/Trauma or Illness?:Illness/Other How long have you had these symptoms (acute/chronic)?:Acute Reason for exam?:sob History of cancer?:. Surgeries, chemotherapy, or radiation?:cardiac catheterization Type of Exam?:Initial Additional signs and symptoms?:n Performed By: #### 4 6124 #### LAB [address] [address] Moody Martinez M.D. [id number] EGFR 23 mL/min/1.73 m2 Low >=60 [facility] Comment on above: Order Comment: Injur y/Trauma or Illness?:Illness/Other How long have you had these symptoms (acute/chronic)?:Acute Reason for exam?:sob History of cancer?:. Surgeries, chemotherapy, or radiation?:cardiac catheterization Type of Exam?:Initial Additional signs and symptoms?:n Result Comment: Albin mated GFR was calculated using the 2020 CKD-EPI creatinine equation. Performed By: #### 4 6124 #### LAB [address] [address] Moody Martinez M.D. [id number] Glucose [Mass/Vol] 514 mg/dL Off scale high 65-99 [facility] Comment on above: Order Comment: Injur y/Trauma or Illness?:Illness/Other How long have you had these symptoms (acute/chronic)?:Acute Reason for exam?:sob History of cancer?:. Surgeries, chemotherapy, or radiation?:cardiac catheterization Type of Exam?:Initial Additional signs and symptoms?:n Performed By: #### 4 6190 #### LAB [address] [address] Moody Martinez M.D. [id number] HCO3 (Bld) [Moles/Vol] 18 mmol/L Low 21-32 [facility] Comment on above: Order Comment: Injur y/Trauma or Illness?:Illness/Other How long have you had these symptoms (acute/chronic)?:Acute Reason for exam?:sob History of cancer?:. Surgeries, chemotherapy, or radiation?:cardiac catheterization Type of Exam?:Initial Additional signs and symptoms?:n Performed By: #### 4 6179 #### LAB [address] [address] Moody Martinez M.D. [id number] Potassium [Moles/Vol] 5.9 mmol/L High 3.5-5.1 [facility] Comment on above: Order Comment: Injur y/Trauma or Illness?:Illness/Other How long have you had these symptoms (acute/chronic)?:Acute Reason for exam?:sob History of cancer?:. Surgeries, chemotherapy, or radiation?:cardiac catheterization Type of Exam?:Initial Additional signs and symptoms?:n Result Comment: Sajan htly Hemolyzed Performed By: #### 4 6105 #### LAB [address] [address] Moody Martinez M.D. [id number] Sodium [Moles/Vol] 137 mmol/L Normal 135-145 [facility] Comment on above: Order Comment: Injur y/Trauma or Illness?:Illness/Other How long have you had these symptoms (acute/chronic)?:Acute Reason for exam?:sob History of cancer?:. Surgeries, chemotherapy, or radiation?:cardiac catheterization Type of Exam?:Initial Additional signs and symptoms?:n Performed By: #### 4 6103 #### LAB [address] [address] Moody Martinez M.D. [id number] Urea nitrogen [Mass/Vol] 50 mg/dL High 8-25 [facility] Comment on above: Order Comment: Injur y/Trauma or Illness?:Illness/Other How long have you had these symptoms (acute/chronic)?:Acute Reason for exam?:sob History of cancer?:. Surgeries, chemotherapy, or radiation?:cardiac catheterization Type of Exam?:Initial Additional signs and symptoms?:n Performed By: #### 4 6132 #### LAB [address] [address] Moody Martinez M.D. [id number] Urea nitrogen/Creatinine [Mass ratio] 18.8 mg/mg Normal 10.0-20.0 [facility] Comment on above: Order Comment: Injur y/Trauma or Illness?:Illness/Other How long have you had these symptoms (acute/chronic)?:Acute Reason for exam?:sob History of cancer?:. Surgeries, chemotherapy, or radiation?:cardiac catheterization Type of Exam?:Initial Additional signs and symptoms?:n Performed By: #### 4 6174 #### LAB [address] [address] Moody Martinez M.D. [id number] BETA-HYDROXYBUTYRATEon 02-28 BETA-HYDROXYBUTYRATE < Normal 0.0-0.3 [facility] Comment on above: Performed By: #### 4 5150 ####[facility] LAB [address] [address] Moody Martinez M.D. [id number] BETA-HYDROXYBUTYRATE 1.1 mmol/L High 0.0-0.3 [facility] Comment on above: Performed By: #### 4 5120 ####[facility] LAB [address] [id number] Moody Martinez M.D. [id number] BETA-HYDROXYBUTYRATE 3.3 mmol/L High 0.0-0.3 [facility] Comment on above: Performed By: #### 4 4010 #### LAB [address] [address] Moody Martinez M.D. [id number] BETA-HYDROXYBUTYRATE 3.3 mmol/L High 0.0-0.3 [facility] Comment on above: Performed By: #### 4 4014 #### LAB [address] [address] Moody Martinez M.D. [id number] BLOOD CULTURE AEROBIC/ANAERO BICon 02-28-2025 BLOOD CULTURE AEROBIC/ANAEROBIC BLOOD CULTURE No Growth after [address] [facility] Comment on above: Performed By: #### 4 4014 #### LAB [address] [address] Moody Martinez M.D. [id number] Performed By: #### 4 4014 #### LAB [address] [address] Moody Martinez M.D. [id number] CBC WITH AUTO DIFFERENTIALon 02-28-2025 AUTO NRBC 0.0 % [facility] Comment on above: Performed By: #### L [id number] #### LAB [address] [place] [address] Moody Martinez M.D. [id number] AUTO NRBC ABS COUNT 0.00 K/mcL Normal 0.00-0.00 [facility] Comment on above: Performed By: #### L [id number] #### LAB [address] [place] [address] Moody Martinez M.D. [id number] BASOPHILS ABSOLUTE COUNT 0.05 K/mcL Normal 0.00-0.30 [facility] Comment on above: Performed By: #### L [id number] #### LAB [address] [place] [address] Moody Martinez M.D. [id number] Basophils/100 WBC (Bld) 0.3 % Normal [facility] Comment on above: Performed By: #### L [id number] #### LAB [address] [place] [address] Moody Martinez M.D. [id number] Eosinophils (Bld) [#/Vol] 0.00 10*3/uL Normal 0.00-0.[address] [place] [address] Comment on above: Performed By: #### L [id number] #### LAB [address] [address] Moody Martinez M.D. [id number] Eosinophils/100 WBC (Bld) 0.0 % Normal [facility] Comment on above: Performed By: #### L [id number] #### LAB [address] [address] Moody Martinez M.D. [id number] Erythrocyte distribution width (RBC) [Ratio] 13.5 % Normal 11.6-14.8 [facility] Comment on above: Performed By: #### L [id number] #### LAB [address] [address] Moody Martinez M.D. [id number] Hematocrit (Bld) [Volume fraction] 40.2 % Low 41.0-53.0 [facility] Comment on above: Performed By: #### L [id number] #### LAB [address] [address] Moody Martinez M.D. [id number] Hemoglobin (Bld) [Mass/Vol] 13.1 g/dL Low 13.5-17.5 [facility] Comment on above: Performed By: #### L [id number] #### LAB [address] [place] [address] Moody Martinez M.D. [id number] IG ABSOLUTE 0.16 K/mcL Normal 0.00-0.30 [facility] Comment on above: Performed By: #### L [id number] #### LAB [address] [place] [address] Moody Martinez M.D. [id number] IG PERCENT 0.80 % Normal [facility] Comment on above: Result Comment: The IG parameter is the percentage of metamyelocytes, myelocytes and promyelocytes. An immature granulocyte count (IG) of 1% or more suggests the possibility of infection, an IG count of 3% is very likely related to an infection. Performed By: #### L [id number] #### LAB [address] [place] [address] Moody Martinez M.D. [id number] Lymphocytes (Bld) [#/Vol] 1.13 10*3/uL Normal 0.90-4.0 0 [facility] Comment on above: Performed By: #### L [id number] #### LAB [address] [address] Moody Martinez M.D. [id number] Lymphocytes/100 WBC (Bld) 6.0 % Normal [facility] Comment on above: Performed By: #### L [id number] #### LAB [address] [address] Moody Martinez M.D. [id number] MCH (RBC) [Entitic mass] 30.8 pg Normal 26.0-34.0 [facility] Comment on above: Performed By: #### L [id number] #### LAB [address] [address] Moody Martinez M.D. [id number] MCV (RBC) [Entitic vol] 94.6 fL Normal 80.0-100.0 [facility] Comment on above: Performed By: #### L [id number] #### LAB [address] [address] Moody Martinez M.D. [id number] MEAN CORPUSCULAR HEMOGLOBIN CONC 32.6 g/dL Normal 31.0-37.0 [facility] Comment on above: Performed By: #### L [id number] #### LAB [address] [address] Moody Martinez M.D. [id number] Monocytes (Bld) [#/Vol] 0.91 10*3/uL High 0.30-0.90 [facility] Comment on above: Performed By: #### L [id number] #### LAB [address] [place] [address] Moody Martinez M.D. [id number] Monocytes/100 WBC (Bld) 4.8 % Normal [facility] Comment on above: Performed By: #### L [id number] #### LAB [address] [address] Moody Martinez M.D. [id number] NEUTROPHILS ABSOLUTE COUNT 16.63 K/mcL High 1.70-7.00 [facility] Comment on above: Performed By: #### L [id number] #### LAB [address] [address] Moody Martinez M.D. [id number] Neutrophils/100 WBC (Bld) 88.1 % Normal [facility] Comment on above: Performed By: #### L [id number] #### LAB [address] [address] Moody Martinez M.D. [id number] Platelet mean volume (Bld) [Entitic vol] 11.1 fL Normal 9.4-12.4 [facility] Comment on above: Performed By: #### L [id number] #### LAB [address] [address] Moody Martinez M.D. [id number] Platelets (Bld) [#/Vol] 258 10*3/uL Normal 150-400 [facility] Comment on above: Performed By: #### L [id number] #### LAB [address] [address] Moody Martinez M.D. [id number] RBC (Bld) [#/Vol] 4.25 10*6/uL Low 4.50-5.90 [facility] Comment on above: Performed By: #### L [id number] #### LAB [address] [address] Moody Martinez M.D. [id number] WBC (Bld) [#/Vol] 18.88 10*3/uL High 4.50-11.00 [facility] Comment on above: Performed By: #### L [id number] #### LAB [address] [address] Moody Martinez M.D. [id number] COVID-19/INFLUENZA A,B MOLEC ULARon 02-28-2025 SARS-CoV-2 (COVID-19) Ab IA Ql SARS-COV-2 (FERDINAND) Not Detected INFLUENZA A (FERDINAND) Not Detected INFLUENZA B (FERDINAND) Not Detected Normal Not Detected [facility] Comment on above: Performed By: #### L [id number] #### LAB [address] [place], [place] [address] Moody Martinez M.D. [id number] CRP, INFLAMMATIONon 02-29-20 CRP (INFLAMMATION) < Normal 0.0-10.0 [facility] Comment on above: Performed By: #### 4 5334 #### LAB [address] [place], [place] [address] Moody Martinez M.D. [id number] D-DIMER, QUANTITATIVEon 02-01 D-DIMER QUANTITATIVE 1.67 mcg/mL FEU High 0.27-0.49 [facility] Comment on above: Order Comment: A D-d [...] By: #### 4 5434 #### LAB [address] [place], [place] [address] Moody Martinez M.D. [id number] ED Procedureon 02-28-2025 ED Procedure ECG 12 Lead Date/Time: 02/28/2025 4:33 AM Performed by: Conchita Yañez MD Authorized by: Conchita Yañez MD Interpreted by ED attending physician Rhythm: sinus rhythm and sinus tachycardia BPM: 103 Clinical impression: sinus tachycardia Comments: ND interval 144 QRS duration 90 QTc 437 AUTHENTICATED BY CONCHITA YAÑEZ, ON 02/28/2025 04:33:26 Normal [facility] ED Procedure EKG 12-lead Date/Time: 02/28/2025 3:26 AM Performed by: Conchita Yañez MD Authorized by: Conchita Yañez MD Interpreted by ED attending physician Rhythm: sinus rhythm BPM: 88 Comments: ND interval 162 QRS duration 102 QTc 491 T wave inversion in lead III and aVF as well as V5 V6 AUTHENTICATED BY CONCHITA YAÑEZ, ON 02/28/2025 03:26:34 Normal [facility] ED Prov Noteon 02-28-2025 ED Prov Note [facility] EMERGENCY DEPARTMENT ATTENDING NOTE: NAME: Enoc Armando CSN: [id number] 79 y.o. 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 Normal [facility] HEMOGLOBIN A1Con 02-28-2025 Glucose [Mass/Vol] 171 mg/dL High 74-114 [facility] Comment on above: Performed By: #### 4 8202 ####[facility] [address] [place], [place] [address] Moody Martinez M.D. [id number] HbA1c (Bld) [Mass fraction] 7.6 % High 4.2-5.6 [facility] Comment on above: Performed By: #### 4 8202 ####[facility] [address] [place], [place] [address] Moody Martinez M.D. [id number] LACTIC ACID, PLASMAon 2024 LACTIC ACID, PLASMA 2.9 mmol/L High 0.6-2.0 [facility] Comment on above: Performed By: #### 4 4014 #### LAB [address] [place], [place] [address] Moody Martinez M.D. [id number] LEGIONELLA ANTIGEN, URINEon 02-28-2025 LEGIONELLA ANTIGEN, URINE LEGIONELLA ANT IGEN Negative for Legionella antigen COMMENT: Results may be affected if patient is on diuretics. INTERPRETATION OF RESULTS: Test detects Legionella pneumophilia serogroup 1 antigens in urine. Legionnaires disease cannot be ruled out since other serogroups and species may also cause disease. Normal [facility] Comment on above: Performed By: #### 4 4090 #### LAB [address] [place] [address] Moody Martinez M.D. [id number] MRSA DNA AMPLIFIED PROBEon 0 02-28-2025 MRSA DNA AMPLIFIED PROBE Negative Normal Not Detected, MRSA NEGATIVE [facility] Comment on above: Performed By: #### 4 8061 #### LAB [address] [place] [address] Moody Martinez M.D. [id number] NT PRO BNPon 02-28-2025 Natriuretic peptide B (Bld) [Mass/Vol] 9634 pg/mL High 0-300 [facility] Comment on above: Order Comment: Injur y/Trauma or Illness?:Illness/Other How long have you had these symptoms (acute/chronic)?:Acute Reason for exam?:sob History of cancer?:. Surgeries, chemotherapy, or radiation?:cardiac catheterization Type of Exam?:Initial Additional signs and symptoms?:n Performed By: #### 4 7395 #### LAB [address] [place], [place] [address] Moody Martinez M.D. [id number] Natriuretic peptide B (Bld) [Mass/Vol] 3396 pg/mL High 0-300 [facility] Comment on above: Order Comment: Pride Study Cut-offsRule In:< /= 50 Years >450 pg/mL51 Years - 75 Years >900 pg/mL76 Years - 99 Years >1800 pg/mLRule Out:All patients <300 pg/mL Performed By: #### 4 7374 ####[facility] [address] [place], [place] [address] Moody Martinez M.D. [id number] OSMOLALITYon 02-28-2025 Osmolality [Osmolality] 328 mosm/kg High 275-295 [facility] Comment on above: Performed By: #### 4 6230 #### LAB [address] [place], [place] [address] Moody Martinez M.D. [id number] PHOSPHORUSon 02-28-2025 Phosphate [Mass/Vol] 2.5 mg/dL Normal 2.3-3.7 [facility] Comment on above: Performed By: #### 4 6299 #### LAB [address] [place] [id number] Moody Martinez M.D. [id number] Phosphate [Mass/Vol] 2.7 mg/dL Normal 2.3-3.7 [facility] Comment on above: Performed By: #### 4 6299 #### LAB [address] [place] [address] Moody Martinez M.D. [id number] Phosphate [Mass/Vol] 3.5 mg/dL Normal 2.3-3.7 [facility] Comment on above: Performed By: #### 4 6299 #### LAB [address] [place] [id number] Moody Martinez M.D. [id number] POC GLUCOSE - [facility] 025 Glucose [Mass/Vol] 236 mg/dL [address] Comment on above: Performed By: #### 4 6932 ####[facility] [address] [place] [id number] Moody Martinez M.D. [id number] Glucose [Mass/Vol] 153 mg/dL [address] Comment on above: Performed By: #### L [id number] #### [facility] [address] [place] [id number] Moody Martinez M.D. [id number] Glucose [Mass/Vol] 57 mg/dL Low [address] [place] [address] Comment on above: Performed By: #### 4 6932 ####[facility] [address] [place] [address] Moody Martinez M.D. [id number] Glucose [Mass/Vol] 73 mg/dL Normal [address] [place] [address] Comment on above: Performed By: #### 4 6932 ####[facility] [address] [place] [address] Moody Martinez M.D. [id number] Glucose [Mass/Vol] 102 mg/dL High [address] [place] [address] Comment on above: Performed By: #### L [id number] #### [facility] [address] [place] [address] Moody Martinez M.D. [id number] Glucose [Mass/Vol] 119 mg/dL High [address] [place] [address] Comment on above: Performed By: #### 4 6932 #### LAB [address] [place] [address] Moody Martinez M.D. [id number] Glucose [Mass/Vol] 146 mg/dL High [address] [place] [address] Comment on above: Performed By: #### 4 6932 #### LAB [address] [place] [address] Moody Martinez M.D. [id number] Glucose [Mass/Vol] 177 mg/dL High [address] [place] [address] Comment on above: Performed By: #### 4 6932 #### LAB [address] [place] [address] Moody Martinez M.D. [id number] Glucose [Mass/Vol] 241 mg/dL High [address] [place] [address] Comment on above: Performed By: #### 4 6932 ####[facility] [address] [place] [address] Moody Martinez M.D. [id number] Glucose [Mass/Vol] 326 mg/dL High [address] [place] [address] Comment on above: Performed By: #### 4 6932 ####[facility] [address] [place] [address] Moody Martinez M.D. [id number] Glucose [Mass/Vol] 429 mg/dL Off scale high [address] [place] [address] Comment on above: Order Comment: Criti christian result acted upon time of test. Test performed at bedside. Performed By: #### 4 6932 #### LAB [address] [place] [address] Moody aMrtinez M.D. [id number] POC GLUCOSE > Off scale high [address] [place] [address] Comment on above: Order Comment: Criti christian result acted upon time of test. Test performed at bedside. Performed By: #### 4 6932 ####[facility] [address] [place] [address] Moody Martinez M.D. [id number] POC GLUCOSE > Off scale [address] Comment on above: Order Comment: Criti christian result acted upon time of test. Test performed at bedside. Performed By: #### 4 6932 ####[facility] [address] [place] [address] Moody Martinez M.D. [id number] POC VENOUS BLOOD GAS PANEL-P [facility] 02-28-2025 BASE EXCESS, VENOUS -5.7 Low -2.0-2.0 [facility] Comment on above: Performed By: #### 4 8717 ####[facility] [address] [place] [address] Moody Martinez M.D. [id number] FIO2 50 Normal [facility] Comment on above: Performed By: #### 4 8717 #### LAB [address] [place] [address] Moody Martinez M.D. [id number] HCO3 (Bld) [Moles/Vol] 19.3 mmol/L Low 24.0-28.0 [facility] Comment on above: Performed By: #### 4 8717 #### LAB [address] [place] [address] Moody Martinez M.D. [id number] Hematocrit (Bld) [Volume fraction] 37.3 % Low 41.0-53.0 [facility] Comment on above: Performed By: #### 4 8717 #### LAB [address] [place] [address] Moody Martinez M.D. [id number] Hemoglobin (Bld) [Mass/Vol] 12.2 g/dL Low 13.5-17.5 [facility] Comment on above: Performed By: #### 4 8717 #### LAB [address] [place] [address] Moody Martinez M.D. [id number] Oxygen saturation in Blood 93.7 % High 40.0-70.0 [facility] Comment on above: Performed By: #### 4 8717 #### LAB [address] [place] [address] Moody Martinez M.D. [id number] PCO2 VENOUS 35.1 mm Hg Low 41.0-51.0 [facility] Comment on above: Performed By: #### 4 8717 #### LAB [address] [place] [address] Moody Martinez M.D. [id number] PH VENOUS 7.35 Normal 7.32-7.42 [facility] Comment on above: Performed By: #### 4 8717 #### LAB [address] [place] [address] Moody Martinez M.D. [id number] PO2 VENOUS 68 mm Hg High 25-40 [facility] Comment on above: Performed By: #### 4 8717 #### LAB [address] [place] [address] Moody Martinez M.D. [id number] RESP RATE RAD 14 Normal [facility] Comment on above: Performed By: #### 4 8717 #### LAB [address] [place] [address] Moody Martinez M.D. [id number] SPECIMEN SOURCE RADIANCE Not specified [facility] Comment on above: Performed By: #### 4 8717 #### LAB [address] [place] [address] Moody Martinez M.D. [id number] BASE EXCESS, VENOUS -5.9 Low -2.0-2.0 [facility] Comment on above: Performed By: #### 4 8717 ####[facility] [address] [place] [address] Moody Martinez M.D. [id number] HCO3 (Bld) [Moles/Vol] 20.5 mmol/L Low 24.0-28.0 [facility] Comment on above: Performed By: #### 4 8717 ####[facility] [address] [place] [address] Moody Martinez M.D. [id number] Hematocrit (Bld) [Volume fraction] 42.0 % Normal 41.0-53.0 [facility] Comment on above: Performed By: #### 4 8717 ####[facility] [address] [place] [address] Moody Martinez M.D. [id number] Hemoglobin (Bld) [Mass/Vol] 13.7 g/dL Normal 13.5-17.5 [facility] Comment on above: Performed By: #### 4 8717 #### LAB [address] [place] [address] Moody Martinez M.D. [id number] LITER FLOW 2 Normal [facility] Comment on above: Performed By: #### 4 8717 #### LAB [address] [place] [address] Moody Martinez M.D. [id number] Oxygen saturation in Blood 50.9 % Normal 40.0-70.0 [facility] Comment on above: Performed By: #### 4 8717 ####[facility] [address] [place] [address] Moody Martinez M.D. [id number] PCO2 VENOUS 43.1 mm Hg Normal 41.0-51.0 [facility] Comment on above: Performed By: #### 4 8717 ####[facility] [address] [place] [address] Moody Martinez M.D. [id number] PH VENOUS 7.29 Low 7.32-7.42 [facility] Comment on above: Performed By: #### 4 8717 #### LAB [address] [place] [address] Moody Martinez M.D. [id number] PO2 VENOUS 30 mm Hg Normal 25-40 [facility] Comment on above: Performed By: #### 4 8717 #### LAB [address] [place] [address] Moody Martinez M.D. [id number] SPECIMEN SOURCE RADIANCE Not specified Normal [facility] Comment on above: Performed By: #### 4 8717 #### LAB [address] [place] [address] Moody Martinez M.D. [id number] PROCALCITONINon 02-28-2025 PROCALCITONIN 0.18 ng/ml Normal <0.50 [facility] Comment on above: Order Comment: Resul ts <0.50 ng/ml represent a low risk of severe sepsis and/or septic shock. Performed By: #### 4 6932 #### LAB [address] [place] [address] Moody Martinez M.D. [id number] REFLEX LACTIC ACID, PLASMAon 02-28-2025 LACTIC ACID, PLASMA 2.0 mmol/L Normal 0.6-2.0 [facility] Comment on above: Performed By: #### 4 4014 #### LAB [address] [place] [address] Moody Martinez M.D. [id number] LACTIC ACID, PLASMA 3.5 mmol/L High 0.6-2.0 [facility] Comment on above: Performed By: #### L [id number] #### LAB [address] [place] [address] Moody Martinez M.D. [id number] RESPIRATORY PCR PANELon 02-01 RESPIRATORY PCR PANEL [...] SARS-COV-2 (BIOFIRE) Not Detected Normal Not Detected [facility] Comment on above: Performed By: #### L [id number] ####[facility] [address] [place] [address] Jose Cisse M.D. [id number] S.PNEUMONIAE URINE ANTIGENon 02-28-2025 S.PNEUMONIAE URINE ANTIGEN STREP PNEUMONIAE ANTIGEN, URINE Presumptive Negative for Pneumococcal pneumoniae A negative result does not rule out Streptococcus pneumoniae infection since the antigen present in the sample may be below the detection limit of the test. Normal [facility] Comment on above: Performed By: #### 4 7222 #### LAB [address] [place] [address] Moody Martinez M.D. [id number] SEDIMENTATION RATEon 025 SEDIMENTATION RATE, ERYTHROCYTE 16 mm/hr Normal 0-20 [facility] Comment on above: Performed By: #### 4 6477 #### LAB [address] [place], [place] [address] Moody Martinez M.D. [id number] TROPONIN X 2 (NOW AND REPEAT IN 2 HOURS)on 02-28-2025 TROPONIN T DELTA % NG/L 176 % Off scale high <2 0% of Baseline Troponin [facility] Comment on above: Performed By: #### 4 6608 #### LAB [address] [place], [place] [address] Moody Martinez M.D. [id number] TROPONIN T DELTA CHANGE INTERPRETATION Probable acute injury or myocardial infarction. Normal [facility] Comment on above: Performed By: #### 4 6608 #### LAB [address] [place] [id number] Moody Martinez M.D. [id number] TROPONIN T NG/L 207 ng/L Off scale high <=22 [facility] Comment on above: Performed By: #### 4 6608 #### LAB [address] [place] [address] Moody Martinez M.D. [id number] BASELINE TROPONIN T NG/L 75 ng/L Off scale high <=22 [facility] Comment on above: Performed By: #### 4 4014 #### LAB [address] [place] [address] Moody Martinez M.D. [id number] TROPONIN T INTERPRETATION Possible acute cardiac injury. Normal [facility] Comment on above: Performed By: #### 4 4014 #### LAB [address] [place] [address] Moody Martinez M.D. [id number] TSH WITH REFLEX FREE T4on TSH Qn 0.61 m[IU]/L Normal 0.27-4.20 [facility] Comment on above: Performed By: #### 4 6612 #### LAB [address] [place] [address] Moody Martinez M.D. [id number] URINALYSISon 02-28-2025 BACTERIA, URINE None Seen Normal None Seen [facility] Comment on above: Order Comment: Micro scopic examination is performed on all urinalysis samples and only positive findings are reported. The test for blood on the chemical analytic portion of urinalysis may also be positive due to hemoglobinuria and myoglobinuria and if red blood cells are present they are quantified by microscopic examination. Performed By: #### 4 6625 #### LAB [address] [place] [address] Moody Martinez M.D. [id number] BILIRUBIN, URINE Negative Normal Negative [facility] Comment on above: Order Comment: Micro scopic examination is performed on all urinalysis samples and only positive findings are reported. The test for blood on the chemical analytic portion of urinalysis may also be positive due to hemoglobinuria and myoglobinuria and if red blood cells are present they are quantified by microscopic examination. Performed By: #### 4 6625 #### LAB [address] [place] [address] Moody Martinez M.D. [id number] BLOOD, URINE Negative Normal Negative [facility] Comment on above: Order Comment: Micro scopic examination is performed on all urinalysis samples and only positive findings are reported. The test for blood on the chemical analytic portion of urinalysis may also be positive due to hemoglobinuria and myoglobinuria and if red blood cells are present they are quantified by microscopic examination. Performed By: #### 4 6625 #### LAB [address] [place] [address] Moody Martinez M.D. [id number] Clarity (U) Clear Normal Clear [facility] Comment on above: Order Comment: Micro scopic examination is performed on all urinalysis samples and only positive findings are reported. The test for blood on the chemical analytic portion of urinalysis may also be positive due to hemoglobinuria and myoglobinuria and if red blood cells are present they are quantified by microscopic examination. Performed By: #### 4 6625 #### LAB [address] [place] [address] Moody Martinez M.D. [id number] Color (U) Yellow Normal Colorless, Yellow [facility] Comment on above: Order Comment: Micro scopic examination is performed on all urinalysis samples and only positive findings are reported. The test for blood on the chemical analytic portion of urinalysis may also be positive due to hemoglobinuria and myoglobinuria and if red blood cells are present they are quantified by microscopic examination. Performed By: #### 4 6625 #### LAB [address] [place] [address] Moody Martinez M.D. [id number] Glucose Ql (U) >=500 Abnormal Negative [facility] Comment on above: Order Comment: Micro scopic examination is performed on all urinalysis samples and only positive findings are reported. The test for blood on the chemical analytic portion of urinalysis may also be positive due to hemoglobinuria and myoglobinuria and if red blood cells are present they are quantified by microscopic examination. Performed By: #### 4 6625 #### LAB [address] [place] [id number] Moody Martinez M.D. [id number] Hyaline casts LM Ql (Urine sed) 3-5 Abnormal 0-2 [facility] Comment on above: Order Comment: Micro scopic examination is performed on all urinalysis samples and only positive findings are reported. The test for blood on the chemical analytic portion of urinalysis may also be positive due to hemoglobinuria and myoglobinuria and if red blood cells are present they are quantified by microscopic examination. Performed By: #### 4 6625 #### LAB [address] [place] [address] Moody Martinez M.D. [id number] Ketones Ql (U) Trace Abnormal Negative [facility] Comment on above: Order Comment: Micro scopic examination is performed on all urinalysis samples and only positive findings are reported. The test for blood on the chemical analytic portion of urinalysis may also be positive due to hemoglobinuria and myoglobinuria and if red blood cells are present they are quantified by microscopic examination. Performed By: #### 4 6625 #### LAB [address] [place] [address] Moody Martinez M.D. [id number] Leukocyte esterase Test strip Ql (U) Negative Normal Negative [facility] Comment on above: Order Comment: Micro scopic examination is performed on all urinalysis samples and only positive findings are reported. The test for blood on the chemical analytic portion of urinalysis may also be positive due to hemoglobinuria and myoglobinuria and if red blood cells are present they are quantified by microscopic examination. Performed By: #### 4 6625 #### LAB [address] [place] [address] Moody Martinez M.D. [id number] MUCUS, URINE Rare Normal None Seen, Rare [facility] Comment on above: Order Comment: Micro scopic examination is performed on all urinalysis samples and only positive findings are reported. The test for blood on the chemical analytic portion of urinalysis may also be positive due to hemoglobinuria and myoglobinuria and if red blood cells are present they are quantified by microscopic examination. Performed By: #### 4 6625 #### LAB [address] [place] [address] Moody Martinez M.D. [id number] NITRITE, URINE Negative Normal Negative [facility] Comment on above: Order Comment: Micro scopic examination is performed on all urinalysis samples and only positive findings are reported. The test for blood on the chemical analytic portion of urinalysis may also be positive due to hemoglobinuria and myoglobinuria and if red blood cells are present they are quantified by microscopic examination. Performed By: #### 4 6625 #### LAB [address] [place] [address] Moody Martinez M.D. [id number] pH (U) 5.5 [pH] Normal 5.0-7.0 [facility] Comment on above: Order Comment: Micro scopic examination is performed on all urinalysis samples and only positive findings are reported. The test for blood on the chemical analytic portion of urinalysis may also be positive due to hemoglobinuria and myoglobinuria and if red blood cells are present they are quantified by microscopic examination. Performed By: #### 4 6625 #### LAB [address] [place] [address] Moody Martinez M.D. [id number] PROTEIN, URINE Negative Normal Negative [facility] Comment on above: Order Comment: Micro scopic examination is performed on all urinalysis samples and only positive findings are reported. The test for blood on the chemical analytic portion of urinalysis may also be positive due to hemoglobinuria and myoglobinuria and if red blood cells are present they are quantified by microscopic examination. Performed By: #### 4 6625 #### LAB [address] [place] [address] Moody Martinez M.D. [id number] RBC LM.HPF (Urine sed) [#/Area] 1 /[HPF] Normal 0-3 [facility] Comment on above: Order Comment: Micro scopic examination is performed on all urinalysis samples and only positive findings are reported. The test for blood on the chemical analytic portion of urinalysis may also be positive due to hemoglobinuria and myoglobinuria and if red blood cells are present they are quantified by microscopic examination. Performed By: #### 4 6625 #### LAB [address] [place], [place] [address] Moody Martinez M.D. [id number] Specific gravity (U) [Rel density] 1.012 Normal 1.005-1.025 [facility] Comment on above: Order Comment: Micro scopic examination is performed on all urinalysis samples and only positive findings are reported. The test for blood on the chemical analytic portion of urinalysis may also be positive due to hemoglobinuria and myoglobinuria and if red blood cells are present they are quantified by microscopic examination. Performed By: #### 4 6625 #### LAB [address] [place] [address] Moody Martinez M.D. [id number] UROBILINOGEN, URINE <2.0 Normal <2.0 [facility] Comment on above: [...] By: #### 4 6625 #### LAB [address] [place] [address] Moody Martinez M.D. [id number] WBC LM.HPF (Urine sed) [#/Area] 1 /[HPF] Normal 0-5 [facility] Comment on above: Order Comment: Micro scopic examination is performed on all urinalysis samples and only positive findings are reported. The test for blood on the chemical analytic portion of urinalysis may also be positive due to hemoglobinuria and myoglobinuria and if red blood cells are present they are quantified by microscopic examination. Performed By: #### 4 6625 #### LAB [address] [place], [place] [address] Moody Martinez M.D. [id number] URINE AEROBIC CULTUREon 02-01 URINE AEROBIC CULTURE URINE CULTURE < 10,000 CFU/mL of normal urogenital microbiota Normal [facility] Comment on above: Performed By: #### 4 4053 ####[facility] [address] [place] [address] Jose Cisse M.D. [id number] XR CHEST PA/APon 02-28-2025 XR CHEST PA/AP [...] 2025 4:00:36 AM EDT [facility] Comment [...] established Performed By: #### 6 517, 7909, 70776 #### [facility] [address], [address] [place] [id number] Reed Worker: Jadon Velez MD ALBUMIN/CREATININE RATIO, RANDOM URINE [...] category. Performed By: #### 6 517, 7909, 76105 #### [facility] [place] [address] Reed Worker: Jadon Velez MD Creatinine (U) [Mass/Vol] 57 mg/dL Normal 20-320 [facility] Comment on above: Performed By: #### 6 517, 7909, 32304 #### [facility] [place] [address] Reed Worker: Jadon Velez MD [facility] 02-13-2025 Albumin [Mass/Vol] 4.3 g/dL Normal 3.6-5.1 [facility] Comment on above: Performed By: #### 8 66, 7600, 496, 17035, [address] #### [facility] [place] [address] Reed Worker: Jadon Velez MD Albumin/Globulin [Mass ratio] 1.7 {ratio} Normal 1.0-2.5 [facility] Comment on above: Performed By: #### 8 66, 7600, 496, 45932, 26085 #### [facility] [place] [address] Reed Worker: Jadon Velez MD ALP [Catalytic activity/Vol] 61 U/L Normal 35-144 [facility] Comment on above: Performed By: #### 8 66, 7600, 496, 14794, 11756 #### [facility] [place] [address] Reed Worker: Jadon Velez MD ALT [Catalytic activity/Vol] 12 U/L Normal 9-46 [facility] Comment on above: Performed By: #### 8 66, 7600, 496, 69278, 30625 #### [facility] of [place] [address] Reed Worker: Jadon Velez MD AST [Catalytic activity/Vol] 16 U/L Normal 10-35 [facility] Comment on above: Performed By: #### 8 66, 7600, 496, 70947, 97191 #### [facility] [place] [address] Reed Worker: Jadon Velez MD Bilirubin [Mass/Vol] 0.5 mg/dL Normal 0.2-1.2 [facility] Comment on above: Performed By: #### 8 66, 7600, 496, 17491, 48603 #### [facility] of [place] [address] Reed Worker: Jadon Velez MD Calcium [Mass/Vol] 9.3 mg/dL Normal 8.6-10.3 [facility] Comment on above: Performed By: #### 8 66, 7600, 496, 69629, 85994 #### [facility] [place] [address] Reed Worker: Jadon Velez MD Chloride [Moles/Vol] 102 mmol/L Normal 98-110 [facility] Comment on above: Performed By: #### 8 66, 7600, 496, 97473, 51642 #### [facility] [place] [address] Reed Worker: Jadon Velez MD CO2 [Moles/Vol] 28 mmol/L Normal 20-32 [facility] Comment on above: Performed By: #### 8 66, 7600, 496, 91097, 86078 #### [facility] [place] [address] Reed Worker: Jadon Velez MD Creatinine [Mass/Vol] 1.76 mg/dL High 0.70-1.[address] [facility] Comment on above: Performed By: #### 8 66, 7600, 496, 81329, 40917 #### [facility] [place] [address] Reed Worker: Jadon Velez MD GFR/1.73 sq M.predicted among non-blacks MDRD (S/P/Bld) [Vol rate/Area] 38 mL/min/{1.73_m2} Low > OR = 60 [facility] Comment on above: Performed By: #### 8 66, 7600, 496, 33772, 63407 #### [facility] [place] [address] Reed Worker: Jadon Velez MD Globulin (S) [Mass/Vol] 2.6 g/dL Normal 1.9-3.7 [facility] Comment on above: Performed By: #### 8 66, 7600, 496, 77540, 48441 #### [facility] [place] [address] Reed Worker: Jadon Velez MD Glucose [Mass/Vol] 242 mg/dL High 65-99 [facility] Comment on above: Result Comment: Fasting reference interval For someone without known diabetes, a glucose value >125 mg/dL indicates that they may have diabetes and this should be confirmed with a follow-up test. Performed By: #### 8 66, 7600, 496, 82096, 24411 #### [facility] [place] [address] Reed Worker: Jaodn Velez MD Potassium [Moles/Vol] 4.6 mmol/L Normal 3.5-5.[address] [facility] Comment on above: Performed By: #### 8 66, 7600, 496, 49448, 70046 #### [facility] [place] [address] Reed Worker: Jadon Velez MD Protein [Mass/Vol] 6.9 g/dL Normal 6.1-8.1 [facility] Comment on above: Performed By: #### 8 66, 7600, 496, 88939, 78305 #### [facility] of [place] [address] Reed Worker: Jadon Velez MD Sodium [Moles/Vol] 140 mmol/L Normal 135-146 [facility] Comment on above: Performed By: #### 8 66, 7600, 496, 07574, 63948 #### [facility] [place] [address] Reed Worker: Jadon Velez MD Urea nitrogen [Mass/Vol] 38 mg/dL High 7-25 [facility] Comment on above: Performed By: #### 8 66, 7600, 496, 45954, 21999 #### [facility] [place] [address] Reed Worker: Jadon Velez MD Urea nitrogen/Creatinine [Mass ratio] 22 mg/mg Normal 6-22 [facility] Comment on above: Performed By: #### 8 66, 7600, 496, 53207, 53428 #### [facility] [place] [address] Reed Worker: Jadon Velez MD COMPREHENSIVE METABOLIC PANE L W/ANION GAPon 02-13-2025 Albumin [Mass/Vol] 4.3 g/dL Normal 3.6-5.1 [facility] Comment on above: Performed By: #### 9 2498 #### [facility] [place] [address] Reed Worker: Jadon Velez MD ALP [Catalytic activity/Vol] 60 U/L Normal 35-144 [facility] Comment on above: Performed By: #### 9 1018 #### [facility] [place] [address] Reed Worker: Jadon Velez MD ALT [Catalytic activity/Vol] 11 U/L Normal 9-46 [facility] Comment on above: Performed By: #### 9 8548 #### [facility] of [address] [place] [address] Reed Worker: Jadon Velez MD AST [Catalytic activity/Vol] 15 U/L Normal 10-35 [facility] Comment on above: Performed By: #### 9 2498 #### [facility] of [place] [address] Reed Worker: Jadon Velez MD Bilirubin [Mass/Vol] 0.5 mg/dL Normal 0.2-1.2 [facility] Comment on above: Performed By: #### 9 2498 #### [facility] [place] [address] Reed Worker: Jadon Velez MD Calcium [Mass/Vol] 9.3 mg/dL Normal 8.6-10.3 [facility] Comment on above: Performed By: #### 9 2498 #### [facility] [place] [address] Reed Worker: Jadon Velez MD Chloride [Moles/Vol] 102 mmol/L Normal 98-110 [facility] Comment on above: Performed By: #### 9 2498 #### [facility] [place] [address] Reed Worker: Jadon Velez MD CO2 [Moles/Vol] 28 mmol/L Normal 20-32 [facility] Comment on above: Performed By: #### 9 2498 #### [facility] [place] [address] Reed Worker: Jadon Velez MD Creatinine [Mass/Vol] 1.80 mg/dL High 0.70-1.[address] [facility] Comment on above: Performed By: #### 9 2498 #### [facility] [place] [address] Reed Worker: Jadon Velez MD ELECTROLYTE BALANCE 10 mmol/L (calc) Normal 7-17 [facility] Comment on above: Performed By: #### 9 8408 #### [facility] of [address] [place] [address] Reed Worker: Jadon Velez MD GFR/1.73 sq M.predicted among non-blacks MDRD (S/P/Bld) [Vol rate/Area] 37 mL/min/{1.73_m2} Low > OR = 60 [facility] Comment on above: Performed By: #### 9 2498 #### [facility] [address], [address] [place] [address] Reed Worker: Jadon Velez MD Glucose [Mass/Vol] 241 mg/dL High 65-99 [facility] Comment on above: Result Comment: Fasting reference interval For someone without known diabetes, a glucose value >125 mg/dL indicates that they may have diabetes and this should be confirmed with a follow-up test. Performed By: #### 9 2498 #### [facility] [place] [address] Reed Worker: Jadon Velez MD Potassium [Moles/Vol] 4.7 mmol/L Normal 3.5-5.[address] [facility] Comment on above: Performed By: #### 9 2498 #### [facility] [place] [address] Reed Worker: Jadon Velez MD Protein [Mass/Vol] 6.7 g/dL Normal 6.1-8.1 [facility] Comment on above: Performed By: #### 9 2498 #### [facility] [address], [address] [place] [address] Reed Worker: Jadon Velez MD Sodium [Moles/Vol] 140 mmol/L Normal 135-146 [facility] Comment on above: Performed By: #### 9 2498 #### [facility] [place] [address] Reed Worker: Jadon Velez MD Urea nitrogen [Mass/Vol] 38 mg/dL High 7-25 [facility] Comment on above: Performed By: #### 9 2498 #### [facility] [address], [address] [place], [place] [address] Reed Worker: Jadon Velez MD Comprehensive metabolic 2000 panelon 02-13-2025 Albumin [Mass/Vol] 4.3 g/dL 3.6 - 5.1 g/dL [facility] Albumin/Globulin [Mass ratio] 1.7 {ratio} [facility] ALP [Catalytic activity/Vol] 61 U/L 35 - 144 U/L [facility] ALT [Catalytic activity/Vol] 12 U/L 9 - 46 U/L [facility] AST [Catalytic activity/Vol] 16 U/L 10 - 35 U/L [facility] Bilirubin [Mass/Vol] 0.5 mg/dL 0.2 - 1 .2 mg/dL [facility] Calcium [Mass/Vol] 9.3 mg/dL 8.6 - 10. 3 mg/dL [facility] Chloride [Moles/Vol] 102 mmol/L 98 - 11 0 mmol/L [facility] CO2 [Moles/Vol] 28 mmol/L 20 - 32 mmol/L [facility] Creatinine [Mass/Vol] 1.76 mg/dL High 0.70 - 1.22 mg/dL [facility] GFR/1.73 sq M.predicted among non-blacks MDRD (S/P/Bld) [Vol rate/Area] 38 mL/min/{1.73_m2} Low > OR = 60 mL/min/1.73m2 [facility] Globulin (S) [Mass/Vol] 2.6 g/dL [facility] Glucose [Mass/Vol] 242 mg/dL High 65 - 99 mg/dL [facility] Comment on above: Fasting reference interval For someone without known diabetes, a glucose value >125 mg/dL indicates that they may have diabetes and this should be confirmed with a follow-up test. Interpretation and review of laboratory results Abnormal [facility] Potassium [Moles/Vol] 4.6 mmol/L 3.5 - 5.3 mmol/L [facility] Protein [Mass/Vol] 6.9 g/dL 6.1 - 8.1 g/dL [facility] Sodium [Moles/Vol] 140 mmol/L 135 - 146 mmol/L [facility] Urea nitrogen [Mass/Vol] 38 mg/dL High 7 - 25 mg/d L [facility] Urea nitrogen/Creatinine [Mass ratio] 22 mg/mg [facility] HEMOGLOBIN A1con 02-13-2025 HbA1c (Bld) [Mass [...] Performed By: #### 8 66, 7600, 496, 53665, 79845 #### [facility] [address], [address] [place] [address] Reed Worker: Jadon Velez MD HbA1c (Bld) [Mass fraction]o n 02-13-2025 Interpretation and review of laboratory results Abnormal [facility] Hemoglobin A1con 02-13-2025 HbA1c (Bld) [Mass fraction] 7.4 % High NINF - 5.7 % [facility] Comment on above: For someone without [...] Performed By: #### 8 66, 7600, 496, 95083, 52140 #### [facility] [address], [address] [place] [address] Reed Worker: Jadon Velez MD Cholesterol in HDL [Mass/Vol] 57 mg/dL Normal > OR = 40 [facility] Comment on above: Performed By: #### 8 66, 7600, 496, 63093, 31967 #### [facility] [place] [address] [place] [address] Reed Worker: Jadon Velez MD Cholesterol in LDL [Mass/Vol] [...] Ramon SORIA et al. ANA LAURA. 2013;310(19): 1042-0501 (http://education.Traction.Car[employer] Black/faq/THP438) Performed By: #### 8 66, 7600, 496, 33394, 51321 #### [facility] [place] [address] Reed Worker: Jadon Velez MD Cholesterol.total/Cholest santos in HDL [Mass ratio] 2.6 {ratio} Normal <5.0 [facility] Comment on above: Performed By: #### 8 66, 7600, 496, 64128, 90224 #### [facility] [place] [address] Reed Worker: Jadon Velez MD NON HDL CHOLESTEROL 91 mg/dL (calc) Normal <130 [facility] Comment on above: Result Comment: For patients with diabetes plus 1 major ASCVD risk factor, treating to a non-HDL-C goal of <100 mg/dL (LDL-C of <70 mg/dL) is considered a therapeutic option. Performed By: #### 8 66, 7600, 496, 42556, 80982 #### [facility] [address], [address] [place] [address] Reed Worker: Jadon Velez MD Triglyceride [Mass/Vol] 85 mg/dL Normal <150 [facility] Comment on above: Performed By: #### 8 66, 7600, 496, 00882, 07169 #### [facility] [address], [address] [place] [address] Reed Worker: Jadon Velez MD Lipid 1996 panelon Cholesterol [Mass/Vol] 148 mg/dL [facility] - 200 mg/dL [facility] Cholesterol in HDL [Mass/Vol] 57 mg/dL > OR = 40 [facility] Cholesterol in LDL [Mass/Vol] 74 mg/dL mg/dL (calc) [facility] Comment on above: Reference range: <10 [...] Ramon SS et al. ANA LAURA. 2013;310(19): 6737-9258 (http://education.Affinergy/faq/GIC384) Cholesterol non HDL [Mass/Vol] 91 mg/dL [facility] Comment on above: For patients with di abetes plus 1 major ASCVD risk factor, treating to a non-HDL-C goal of <100 mg/dL (LDL-C of <70 mg/dL) is considered a therapeutic option. Cholesterol.total/Cholest santos in HDL [Mass ratio] 2.6 {ratio} [facility] Triglyceride [Mass/Vol] 85 mg/dL [facility] - 150 mg/dL [facility] NOTEon 02-13-2025 NOTE Normal [facility] Comment on above: Result Comment: This urine was analyzed for the presence of WBC, RBC, bacteria, casts, and other formed elements. Only those elements seen were reported. Performed By: #### 9 2498 #### [facility] [address], [address] [place], [place] [id number] Reed Worker: Jadon Velez MD No Panel Informationon 02-13 [facility] T4, FREEon 02-13-2025 Free T4 [Mass/Vol] 1.4 ng/dL Normal 0.8-1.8 [facility] Comment on above: Performed By: #### 8 66, 8630, 496, 41840, 86381 #### [facility] [address], [address] [place], [place] [address] Reed Worker: Jadon Velez MD TSH W/REFLEX TO FT4on 2024 TSH W/REFLEX TO FT4 0.36 mIU/L Low 0.40-4.50 [facility] Comment on above: Performed By: #### 8 66, 7600, 496, 47748, 95090 #### [facility] of [address], [address] [place] [address] Reed Worker: Jadon Velez MD URINALYSIS REFLEXon 02-14-20 25 Appearance (U) CLEAR Normal CLEAR [facility] Comment on above: Performed By: #### 9 2498 #### [facility] of [place] [address] Reed Worker: Jadon Velez MD BACTERIA NONE SEEN Normal NONE SEEN [facility] Comment on above: Performed By: #### 9 2498 #### [facility] [place] [address] Reed Worker: Jadon Velez MD Bilirubin Ql (U) Negative Normal NEGATIVE [facility] Comment on above: Performed By: #### 9 2498 #### [facility] of [place] [address] Reed Worker: Jadon Velez MD Color (U) YELLOW Normal YELLOW [facility] Comment on above: Performed By: #### 9 2498 #### [facility] [place] [address] Reed Worker: Jadon Velez MD Glucose Ql (U) Negative Normal NEGATIVE [facility] Comment on above: Performed By: #### 9 2498 #### [facility] [place] [address] Reed Worker: Jadon Velez MD HYALINE CAST NONE SEEN Normal NONE SEEN [facility] Comment on above: Performed By: #### 9 2498 #### [facility] of [place] [address], [address] [place] [address] Reed Worker: Jadon Velez MD Ketones Ql (U) Negative Normal NEGATIVE [facility] Comment on above: Performed By: #### 9 8248 #### [facility] of [address], [address] [place] [address] Reed Worker: Jadon Velez MD Leukocyte esterase Test strip Ql (U) TRACE Abnormal NEGATIVE [facility] Comment on above: Performed By: #### 9 1978 #### [facility] [place] [address] Reed Worker: Jadon Velez MD Nitrite Ql (U) Negative Normal NEGATIVE [facility] Comment on above: Performed By: #### 9 0488 #### [facility] [place] [address] Reed Worker: Jadon Velez MD OCCULT BLOOD Negative Normal NEGATIVE [facility] Comment on above: Performed By: #### 9 2498 #### [facility] [place] [address] Reed Worker: Jadon Velez MD pH (U) 6.0 [pH] Normal 5.0-8.0 [facility] Comment on above: Performed By: #### 9 3768 #### [facility] [place] [address] Reed Worker: Jadon Velez MD Protein Ql (U) 1+ Abnormal NEGATIVE [facility] Comment on above: Performed By: #### 9 9678 #### [facility] of [place] [address] Reed Worker: Jadon Velez MD RBC NONE SEEN Normal < OR = 2 [facility] Comment on above: Performed By: #### 9 9138 #### [facility] [place] [address] Reed Worker: Jadon Vleez MD Specific gravity (U) [Rel density] 1.011 Normal 1.001-1.035 [facility] Comment on above: Performed By: #### 9 7018 #### [facility] [place] [address] Reed Worker: Jadon Velez MD SQUAMOUS EPITHELIAL CELLS NONE SEEN Normal < OR = 5 [facility] Comment on above: Performed By: #### 9 2498 #### [facility] [address] , [address] Reed Worker: Jadon Velez MD WBC 0-5 Normal < OR = 5 [facility] Comment on above: Performed By: #### 9 2498 #### [facility] [address] [place], [place] [address] , [address] [place] [address] Reed Worker: Jadon Velez MD Anion gap in Serum or Plasma Ordered By: Kerwin Tamayo on 02-06-2025 Anion gap [Moles/Vol] 12 mmol/L 5-15 [facility] BUN/creatinine ratioOrdered By: Kerwin Tamayo on 02-06-2025 Urea nitrogen/Creatinine [Mass ratio] 23.1 mg/mg High 10- [facility] Basic Metabolic Profile (BMP )on 02-06-2025 BUN/CRE 23.1 RATIO High 10-20 [facility] Comment on above: Performed By: #### L 500.2500, L100.0500 ####[facility] [address] [place], [address] Calcium [Mass/Vol] 9.1 mg/dL Normal 7.6-11.0 [facility] Comment on above: Performed By: #### L 500.2500, L100.0500 ####[facility] [address] [place], [address] Chloride [Moles/Vol] 103 mmol/L Normal 98-108 [facility] Comment on above: Performed By: #### L 500.2500, L100.0500 ####[facility] [address] [place], [address] CO2 [Moles/Vol] 23.7 mmol/L Normal 21.0-32.0 [facility] Comment on above: Performed By: #### L 500.2500, L100.0500 ####[facility] [address] [place], [address] Creatinine [Mass/Vol] 1.88 mg/dL High 0.70-1.20 [facility] Comment on above: Performed By: #### L 500.2500, L100.0500 ####[facility] [address] [place], [address] GAP 12 Normal 5-15 [facility] Comment on above: Performed By: #### L 500.2500, L100.0500 ####[facility] [address] [place], [address] GFR/1.73 sq M.predicted among non-blacks MDRD (S/P/Bld) [Vol rate/Area] 35 mL/min/{1.73_m2} Low >60 [place] Comment on above: Result Comment: mL/m in/1.73m2 CKD-EPI Creatinine Equation (2020) Performed By: #### L 500.2500, L100.0500 ####[facility] [address] [place], [address] Glucose [Mass/Vol] 287 mg/dL High 70-99 [facility] Comment on above: Performed By: #### L 500.2500, L100.0500 ####[facility] [address] [place], [address] Potassium [Moles/Vol] 4.4 mmol/L Normal 3.3-5.1 [facility] Comment on above: Performed By: #### L 500.2500, L100.0500 ####[facility] [address] [place], [address] Sodium [Moles/Vol] 139 mmol/L Normal 133-145 [facility] Comment on above: Performed By: #### L 500.2500, L100.0500 ####[facility] [address], [address] Urea nitrogen [Mass/Vol] 44 mg/dL High 4-19 [facility] Comment on above: Performed By: #### L 500.2500, L100.0500 ####[facility] [address] [place], [address] CBC-Complete Blood Cnt No Di ffon 02-06-2025 Erythrocyte distribution width (RBC) [Ratio] 13.0 % Normal 11.6-14.6 [facility] Comment on above: Performed By: #### L 500.2500, L100.0500 ####[facility] [address] [place], [address] Hematocrit (Bld) [Volume fraction] 33.8 % Low 40-54 [facility] Comment on above: Performed By: #### L 500.2500, L100.0500 ####[facility] [address] [place], [address] Hemoglobin (Bld) [Mass/Vol] 11.0 g/dL Low 13.0-16.5 [facility] Comment on above: Performed By: #### L 500.2500, L100.0500 ####[facility] [address] [place], [address] MCH (RBC) [Entitic mass] 31.0 pg Normal 27.0-32.0 [facility] Comment on above: Performed By: #### L 500.2500, L100.0500 ####[facility] [address] [place], [address] MCHC (RBC) [Mass/Vol] 32.5 g/dL Normal 32-36 [facility] Comment on above: Performed By: #### L 500.2500, L100.0500 ####[facility] [address] [place], [address] MCV (RBC) [Entitic vol] 95.2 fL High 80-94 [facility] Comment on above: Performed By: #### L 500.2500, L100.0500 ####[facility] [address] [place], [address] Platelet mean volume (Bld) [Entitic vol] 11.2 fL Normal 6.2-12.0 [facility] Comment on above: Performed By: #### L 500.2500, L100.0500 ####[facility] [address] [place], [address] Platelets (Bld) [#/Vol] 239 10*3/uL Normal 150-450 [facility] Comment on above: Performed By: #### L 500.2500, L100.0500 ####[facility] [address] [place], [address] RBC (Bld) [#/Vol] 3.55 10*6/uL Low 4.6-6.2 [facility] Comment on above: Performed By: #### L 500.2500, L100.0500 ####[facility] [address] [place], [address] RDW SD 45.3 fl High 35.1-43.9 [facility] Comment on above: Performed By: #### L 500.2500, L100.0500 ####[facility] [address] [place], [address] WBC (Bld) [#/Vol] 8.9 10*3/uL Normal 4.4-11.0 [facility] Comment on above: Performed By: #### L 500.2500, L100.0500 ####[facility] [address] [place], [address] Carbon dioxide, total [Moles /volume] in Central venous bloodOrdered By: Kerwin Tamayo on 02-06-2025 CO2 [Moles/Vol] 23.7 mmol/L 21.0-32.0 [facility] Chloride assayOrdered By: Daniela Tamayo on 02-06-2025 Chloride [Moles/Vol] 103 mmol/L 98-108 [facility] Erythrocyte distribution wid th (RBC) [Ratio]Ordered By: Kerwin Tamayo on 02-06-2025 Erythrocyte distribution width (RBC) [Entitic vol] 45.3 fL High 35.1-43.9 [facility] Erythrocyte distribution wid th ratioOrdered By: Kerwin Tamayo on 02-06-2025 Erythrocyte distribution width (RBC) [Ratio] 13.0 % 11.6-14.6 [facility] Erythrocyte distribution wid th standard deviationOrdered By: Kerwin Tamayo on 02-06-2025 Erythrocyte distribution width (RBC) [Ratio] 45.3 fl High 35.1-43.9 [facility] GFR/1.73 sq M.predicted park g non-blacks MDRD (S/P/Bld) [Vol rate/Area]Ordered By: Kerwin Tamayo on 02-06-2025 Estimated GFR (MDRD) Non-Af Amer 35 Low >60 [facility] Comment on above: mL/min/1.73m2 CKD-EP I Creatinine Equation (2020) Glomerular filtration rate ( GFR) estimation/1.73 sq m using serum, plasma, or whole bOrdered By: Kerwin Tamayo on 02-06-2025 GFR/1.73 sq M.predicted among non-blacks MDRD (S/P/Bld) [Vol rate/Area] 35 mL/min/{1.73_m2} Low >60 [facility] Comment on above: mL/min/1.73m2 CKD-EP I Creatinine Equation (2020) Hematocrit Auto (Bld) [Volum e fraction]Ordered By: Kerwin Tamayo on 02-06-2025 Hematocrit (Bld) [Volume fraction] 33.8 % Low 40-54 [facility] Hemoglobin measurementOrdere d By: Kerwin Tamayo on 02-06-2025 Hemoglobin (Bld) [Mass/Vol] 11.0 g/dL Low 13.0-16.5 [facility] MCV (mean corpuscular volume ) determinationOrdered By: Kerwin Tamayo on 02-06-2025 MCV (RBC) [Entitic vol] 95.2 fL High 80-94 [facility] Mean corpuscular hemoglobin (MCH) determinationOrdered By: Kerwin Tamayo on 02-06-2025 MCH (RBC) [Entitic mass] 31.0 pg 27.0-32.0 [facility] Mean corpuscular hemoglobin concentration (MCHC) determinationOrdered By: Kerwin Tamayo on 02-06-2025 MCHC (RBC) [Mass/Vol] 32.5 g/dL 32-36 [facility] Mean platelet volume determi nationOrdered By: Kerwin Tamayo on 02-06-2025 Platelet mean volume (Bld) [Entitic vol] 11.2 fL 6.2-12.0 [facility] Platelet countOrdered By: Daniela Tamayo on 02-06-2025 Platelets (Bld) [#/Vol] 239 10*3/uL 150-450 [facility] Potassium (Unsp spec) [Mass/ Vol]Ordered By: Kerwin Tamayo on 02-06-2025 Potassium [Moles/Vol] 4.4 mmol/L 3.3-5.1 [facility] Potassium measurement (mass/ volume)Ordered By: Kerwin Tamayo on 02-06-2025 Potassium (Unsp spec) [Mass/Vol] 4.4 mmol/L 3.3-5.1 [facility] RBC Auto (Bld) [#/Vol]Ordere d By: Kerwin Tamayo on 02-06-2025 RBC (Bld) [#/Vol] 3.55 10*6/uL Low 4.6-6.2 [facility] Serum creatinine measurement (mass/volume)Ordered By: Kerwin Tamayo on 02-06-2025 Creatinine [Mass/Vol] 1.88 mg/dL High 0.70-1.20 [facility] Serum glucose measurement (m ass/volume)Ordered By: Kerwin Tamayo on 02-06-2025 Glucose [Mass/Vol] 287 mg/dL High 70-99 [facility] Serum or plasma calcium nikkie urement (mass/volume)Ordered By: Kerwin Tamayo on 02-06-2025 Calcium [Mass/Vol] 9.1 mg/dL 7.6-11.0 [facility] Serum or plasma urea nitroge n measurement (mass/volume)Ordered By: Kerwin Tamayo on 02-06-2025 Urea nitrogen [Mass/Vol] 44 mg/dL High 4-19 [facility] Sodium levelOrdered By: Aaron Tamayo on 02-06-2025 Sodium [Moles/Vol] 139 mmol/L 133-145 [facility] White blood cell (WBC) count Ordered By: Kerwin Tamayo on 02-06-2025 WBC (Bld) [#/Vol] 8.9 10*3/uL 4.4-11.0 [facility] CBC W Auto Differential pane l (Bld)on 11-06-2024 Basophils (Bld) [#/Vol] 0.08 x10*3/uL Normal 0.00-0.10 [facility] Comment on above: Performed By: #### 5 7021-8 #### MAGGI PARNELL ([id number]) [facility] [address] [place] [address] 96066 Basophils/100 WBC (Bld) 0.8 % Normal 0.0-2.0 [facility] Comment on above: Performed By: #### 5 7021-8 #### MAGGI PARNELL ([id number]) [facility] [address] [place] [address] 31779 Eosinophils (Bld) [#/Vol] 0.42 x10*3/uL High 0.00-0. 40 [facility] Comment on above: Performed By: #### 5 7021-8 #### MAGGI PARNELL ([id number]) [facility] [address] [place] [address] 21023 Eosinophils/100 WBC (Bld) 4.4 % Normal 0.0-6.0 [facility] Comment on above: Performed By: #### 5 7021-8 #### MAGGI PARNELL ([id number]) [facility]) [address] [place] [address] Erythrocyte distribution width (RBC) [Ratio] 14.5 % Normal 11.5-14.5 [facility] Comment on above: Performed By: #### 5 7021-8 #### MAGGI PARNELL ([id number]) [facility] [address] [place] [address] Hematocrit (Bld) [Volume fraction] 34.5 % Low 41.0-52.0 [facility] Comment on above: Performed By: #### 5 7021-8 #### MAGGI PARNELL ([id number]) [facility]) [address] [place] [address] Hemoglobin (Bld) [Mass/Vol] 10.6 g/dL Low 13.5-17.5 [facility] Comment on above: Performed By: #### 5 7021-8 #### MAGGI PARNELL ([id number]) [facility]) [address] [place] [address] Immature granulocytes (Bld) [#/Vol] 0.03 x10*3/uL Normal 0.00-0.50 [facility] Comment on above: Performed By: #### 5 7021-8 #### MAGGI PARNELL ([id number]) [facility]) [address] [place] [address] Immature granulocytes/100 WBC (Bld) 0.3 % Normal 0.0-0.9 [facility] Comment on above: Result Comment: Arielle ture Granulocyte Count (IG) includes promyelocytes, myelocytes and metamyelocytes but does not include bands. Percent differential counts (%) should be interpreted in the context of the absolute cell counts (cells/UL). Performed By: #### 5 7021-8 #### MAGGI PARNELL ([id number]) [facility]) [address] [place], [place] [id number] Lymphocytes (Bld) [#/Vol] 2.35 x10*3/uL Normal 0.80-3. 00 [facility] Comment on above: Performed By: #### 5 7021-8 #### MAGGI PARNELL ([id number]) [facility]) [facility] [place] [address] Lymphocytes/100 WBC (Bld) 24.5 % Normal 13.0-44.0 [facility] Comment on above: Performed By: #### 5 7021-8 #### MAGGI PARNELL ([id number]) [facility] [address] [place] [address] 31257 MCH (RBC) [Entitic mass] 30.3 pg Normal 26.0-34.0 [facility] Comment on above: Performed By: #### 5 7021-8 #### MAGGI PARNELL ([id number]) [facility] [address] [place] [address] 51483 MCHC (RBC) [Mass/Vol] 30.7 g/dL Low 32.0-36.0 [facility] Comment on above: Performed By: #### 5 7021-8 #### MAGGI PARNELL ([id number]) [facility] [address] [place] [address] 76055 MCV (RBC) [Entitic vol] 99 fL Normal 80-100 [facility] Comment on above: Performed By: #### 5 7021-8 #### MAGGI PARNELL ([id number]) [facility] [address] [place] [address] 12159 Monocytes (Bld) [#/Vol] 0.82 x10*3/uL High 0.05-0.80 [facility] Comment on above: Performed By: #### 5 7021-8 #### MAGGI PARNELL ([id number]) [facility]) [address] [place] [address] 80220 Monocytes/100 WBC (Bld) 8.6 % Normal 2.0-10.0 [facility] Comment on above: Performed By: #### 5 7021-8 #### MAGGI PARNELL ([id number]) [facility]) [address] [place] [address] 40984 Neutrophils (Bld) [#/Vol] 5.89 x10*3/uL High 1.60-5. 50 [facility] Comment on above: Result Comment: Perc ent differential counts (%) should be interpreted in the context of the absolute cell counts (cells/uL). Performed By: #### 5 7021-8 #### MAGGI PARNELL ([id number]) [facility]) [address] [place] [address] 93857 Neutrophils/100 WBC (Bld) 61.4 % Normal 40.0-80.0 [facility] Comment on above: Performed By: #### 5 7021-8 #### MAGGI PARNELL ([id number]) [facility]) [address] [place] [address] 80244 Nucleated RBC/100 WBC (Bld) [Ratio] 0.0 /100 WBCs Normal 0.0-0.0 [facility] Comment on above: Performed By: #### 5 7021-8 #### MAGGI PARNELL ([id number]) [facility] [address] [place] [address] 44675 Platelets (Bld) [#/Vol] 229 x10*3/uL Normal 150-450 [facility] Comment on above: Performed By: #### 5 7021-8 #### MAGGI PARNELL ([id number]) [facility]) [address] [place] [address] 38397 RBC (Bld) [#/Vol] 3.50 x10*6/uL Low 4.50-5.90 [facility] Comment on above: Performed By: #### 5 7021-8 #### MAGGI PARNELL ([id number]) [facility] [address] [place] [address] 98920 WBC (Bld) [#/Vol] 9.6 x10*3/uL Normal 4.4-11.3 [facility] Comment on above: Performed By: #### 5 7021-8 #### MAGGI PARNELL ([id number]) [facility]) [address] [place] [address] 54907 Comprehensive metabolic 2000 panelon 11-06-2024 Albumin BCP dye [Mass/Vol] 3.7 g/dL Normal 3.4-5.0 [facility] Comment on above: Performed By: #### 1 4959-1 #### ALENA Paredes ([id number]) [facility] ([facility]) [address] [place] [address] ALP [Catalytic activity/Vol] 68 U/L Normal 33-136 [facility] Comment on above: Performed By: #### 1 4959-1 #### ALENA Paredes ([id number]) [facility] ([facility]) [address] [place] [address] 26623 ALT With P-5'-P [Catalytic activity/Vol] 19 U/L Normal 10-52 [facility] Comment on above: Result Comment: Twila ents treated with Sulfasalazine may generate falsely decreased results for ALT. Performed By: #### 1 4959-1 #### ALENA Paredes ([id number]) [facility] ([facility]) [address] [place] [address] 63642 Anion gap [Moles/Vol] 12 mmol/L Normal 10-20 [facility] Comment on above: Performed By: #### 1 4959-1 #### ALENA Paredes ([id number]) [facility] ([facility]) [address] [place] [address] 43527 AST With P-5'-P [Catalytic activity/Vol] 19 U/L Normal 9-39 [facility] Comment on above: Performed By: #### 1 4959-1 #### ALENA Paredes ([id number]) [facility] ([facility]) [address] [place] [address] Bilirubin [Mass/Vol] 0.3 mg/dL Normal 0.0-1.2 [facility] Comment on above: Performed By: #### 1 4959-1 #### ALENA Paredes ([id number]) [facility] ([facility]) [address] [place] [address] Calcium [Mass/Vol] 8.9 mg/dL Normal 8.6-10.3 [facility] Comment on above: Performed By: #### 1 4959-1 #### ALENA Paredes ([id number]) [facility] ([facility]) [address] [place] [address] 28065 Chloride [Moles/Vol] 108 mmol/L High 98-107 [facility] Comment on above: Performed By: #### 1 4959-1 #### ALENA Paredes ([id number]) [facility] ([facility]) [address] [place] [address] 76219 CO2 [Moles/Vol] 23 mmol/L Normal 21-32 [facility] Comment on above: Performed By: #### 1 4959-1 #### ALENA Paredes ([id number]) [facility] ([facility]) [address] [place] [address] 33412 Creatinine [Mass/Vol] 2.37 mg/dL High 0.50-1.30 [facility] Comment on above: Performed By: #### 1 4959-1 #### ALENA Paredes ([id number]) [facility] ([facility]) [address] [place] [address] 86412 Glomerular filtration rate/1.73 sq M.predicted 27 mL/min/1.73m*2 Low >60 [facility] Comment on above: Result Comment: Calc ulations of estimated GFR are performed using the 2020 CKD-EPI Study Refit equation without the race variable for the IDMS-Traceable creatinine methods. https://jasn.asnjournals.org/content/early//ASN.20 85949145 Performed By: #### 1 4959-1 #### ALENA Paredes ([id number]) [facility] ([facility]) [address] [place] [address] 71146 Glucose [Mass/Vol] 95 mg/dL Normal 74-99 [facility] Comment on above: Performed By: #### 1 4959-1 #### ALENA Paredes ([id number]) [facility] ([facility]) [address] [place] [address] Potassium [Moles/Vol] 4.9 mmol/L Normal 3.5-5.3 [facility] Comment on above: Performed By: #### 1 4959-1 #### ALENA Paredes ([id number]) [facility] ([facility]) [address] [place] [address] 08020 Protein [Mass/Vol] 6.4 g/dL Normal 6.4-8.2 [facility] Comment on above: Performed By: #### 1 4959-1 #### ALENA Paredes ([id number]) [facility] ([facility]) [address] [place] [address] 30785 Sodium [Moles/Vol] 138 mmol/L Normal 136-145 [facility] Comment on above: Performed By: #### 1 4959-1 #### ALENA Paredes ([id number]) [facility] ([facility]) [address] [place] [address] 35686 Urea nitrogen [Mass/Vol] 48 mg/dL High 6-23 [facility] Comment on above: Performed By: #### 1 4959-1 #### ALENA Paredes ([id number]) [facility] ([facility]) [address] [place] [address] 97082 HbA1c (Bld) [Mass fraction]o n 11-06-2024 Average glucose Estimated from glycated hemoglobin (Bld) [Mass/Vol] 220 mg/dL Normal Not Established [facility] Comment on above: Order Comment: Diagn osis of Dnoiuuwl-FlditnXun-Pqlwaibf: < or = 5.6%Increased risk for developing diabetes: 5.7-6.4%Diagnostic of diabetes: > or = 6.5% Performed By: #### 1 4959-1 #### ALENA Paredes ([id number]) [facility] ([facility]) [address] [place] [address] 91310 Hemoglobin A1c/Hemoglobin.to alcira 11-06-2024 HbA1c (Bld) [Mass fraction] 9.3 % High See comment [facility] Comment on above: Order Comment: Diagn osis of Hwxxtwhy-UmvzygYle-Ktauctly: < or = 5.6%Increased risk for developing diabetes: 5.7-6.4%Diagnostic of diabetes: > or = 6.5% Performed By: #### 1 4959-1 #### ALENA Paredes ([id number]) [facility] ([facility]) [address] [place], [place] [address] Thyrotropinon 11-06-2024 TSH Qn 2.65 m[IU]/L Normal 0.44-3.98 [facility] Comment on above: Order Comment: TSH t esting is performed using different testing methodology at [facility] than at [facility]. Direct result comparisons should only be made within the same method. Performed By: #### 1 4959-1 #### ALENA Paredes ([id number]) [facility] ([facility]) [address] [place] [address] 09869 Thyroxine.freeon 11-06-2024 Free T4 [Mass/Vol] 0.84 ng/dL Normal 0.61-1.12 [facility] Comment on above: Order Comment: Thyro xine Free testing is performed using different testing methodology at [facility] than at [facility]. 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 Performed By: #### 4 6124 #### [facility] [address] [place] [id number] Moody Martinez M.D. 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 [id number] Anion gap [Moles/Vol] 17 mmol/L Normal 10-20 [facility] Comment on above: Order Comment: [facility] has implemented the eGFR calculation approach that does not have a coefficient for race that conforms to the NKF-ASN Task Force Recommendations. Performed By: #### 4 6124 #### [facility] [address] [place], [place] [address] Moody Martinez M.D. [id number] Calcium [Mass/Vol] 8.5 mg/dL Normal 8.4-10.2 [facility] Comment on above: Order Comment: [facility] has implemented the eGFR calculation approach that does not have a coefficient for race that conforms to the NKF-ASN Task Force Recommendations. Performed By: #### 4 6124 #### [facility] [address] [place] [address] Moody Martinez M.D. [id number] Chloride [Moles/Vol] 108 mmol/L Normal 98-108 [facility] Comment on above: Order Comment: [facility] has implemented the eGFR calculation approach that does not have a coefficient for race that conforms to the NKF-ASN Task Force Recommendations. Performed By: #### 4 6124 #### [facility] [address] [place] [address] Moody Martinez M.D. [id number] Creatinine [Mass/Vol] 2.44 mg/dL High 0.80-1.30 [facility] Comment on above: Order Comment: [facility] has implemented the eGFR calculation approach that does not have a coefficient for race that conforms to the NKF-ASN Task Force Recommendations. Performed By: #### 4 6124 #### [facility] [address] [place] [address] Moody Martinez M.D. [id number] EGFR 26 mL/min/1.73 m2 Low >=60 [facility] Comment on above: Order Comment: [facility] has implemented the eGFR calculation approach that does not have a coefficient for race that conforms to the NKF-ASN Task Force Recommendations. Result Comment: Albin mated GFR was calculated using the 2020 CKD-EPI creatinine equation. Performed By: #### 4 6124 #### [facility] [address] [place] [address] Moody Martinez M.D. [id number] Glucose [Mass/Vol] 107 mg/dL High 65-99 [facility] Comment on above: Order Comment: [facility] has implemented the eGFR calculation approach that does not have a coefficient for race that conforms to the NKF-ASN Task Force Recommendations. Performed By: #### 4 6124 ####[facility] [address] [place] [address] Moody Martinez M.D. [id number] HCO3 (Bld) [Moles/Vol] 18 mmol/L Low 21-32 [facility] Comment on above: Order Comment: [facility] has implemented the eGFR calculation approach that does not have a coefficient for race that conforms to the NKF-ASN Task Force Recommendations. Performed By: #### 4 6124 #### [facility] [address] [place] [address] Moody Martinez M.D. [id number] Potassium [Moles/Vol] 4.1 mmol/L Normal 3.5-5.1 [facility] Comment on above: Order Comment: [facility] has implemented the eGFR calculation approach that does not have a coefficient for race that conforms to the NKF-ASN Task Force Recommendations. Performed By: #### 4 6124 #### [facility] [address] [place] [address] Moody Martinez M.D. [id number] Sodium [Moles/Vol] 139 mmol/L Normal 135-145 [facility] Comment on above: Order Comment: [facility] has implemented the eGFR calculation approach that does not have a coefficient for race that conforms to the NKF-ASN Task Force Recommendations. Performed By: #### 4 6124 #### [facility] [address] [place] [address] Moody Martinez M.D. [id number] Urea nitrogen [Mass/Vol] 85 mg/dL High 8-25 [facility] Comment on above: Order Comment: [facility] has implemented the eGFR calculation approach that does not have a coefficient for race that conforms to the NKF-ASN Task Force Recommendations. Performed By: #### 4 6124 #### [facility] [address] [place] [address] Moody Martinez M.D. [id number] Urea nitrogen/Creatinine [Mass ratio] 34.8 mg/mg High 10.0-20.0 [facility] Comment on above: Order Comment: [facility] has implemented the eGFR calculation approach that does not have a coefficient for race that conforms to the NKF-ASN Task Force Recommendations. Performed By: #### 4 6124 #### [facility] [address] [place] [address] Moody Martinez M.D. [id number] BETA-HYDROXYBUTYRATEon 10-28 BETA-HYDROXYBUTYRATE 0.1 mmol/L Normal 0.0-0.3 [facility] Comment on above: Performed By: #### 4 5139 ####[facility] [address] [place], [place] [address] Moody Martinez M.D. [id number] BETA-HYDROXYBUTYRATE < Normal 0.0-0.3 [facility] Comment on above: Performed By: #### 4 5139 ####[facility] [address] [place], [place] [address] Moody Martinez M.D. [id number] Basic metabolic 2000 panelon 10-28-2024 Anion gap [Moles/Vol] 16 mmol/L 10 - 2 0 mmol/L [facility] Calcium [Mass/Vol] 8.5 mg/dL 8.4 - 10. 2 mg/dL [facility] [facility] Chloride [Moles/Vol] 108 mmol/L 98 - 10 8 mmol/L [facility] Creatinine [Mass/Vol] 2.31 mg/dL High 0.80 - 1.30 mg/dL [facility] GFR/1.73 sq M.predicted CKD-EPI (S/P/Bld) [Vol rate/Area] 28 Low - PINF [facility] Comment on above: Estimated GFR was ca lculated using the 2020 CKD-EPI creatinine equation. Glucose [Mass/Vol] 95 mg/dL 65 - 99 mg/dL [facility] HCO3 [Moles/Vol] 19 mmol/L Low 21 - 32 mmol/L [facility] Potassium [Moles/Vol] 4.1 mmol/L 3.5 - 5.1 mmol/L [facility] Sodium [Moles/Vol] 139 mmol/L 135 - 145 mmol/L [facility] Urea nitrogen [Mass/Vol] 82 mg/dL High 8 - 25 mg/d L [facility] Urea nitrogen/Creatinine [Mass ratio] 35.5 mg/mg High 10.0 - 20.0 [facility] has implemented the eGFR calculation approach that does not have a coefficient for race that conforms to the NKF-ASN Task Force Recommendations. [facility] Anion gap [Moles/Vol] 17 mmol/L 10 - 2 0 mmol/L [facility] Calcium [Mass/Vol] 8.5 mg/dL 8.4 - 10. 2 mg/dL [facility] Chloride [Moles/Vol] 108 mmol/L 98 - 10 8 mmol/L [facility] Creatinine [Mass/Vol] 2.44 mg/dL High 0.80 - 1.30 mg/dL [facility] GFR/1.73 sq M.predicted CKD-EPI (S/P/Bld) [Vol rate/Area] 26 Low - PINF [facility] Comment on above: Estimated GFR was ca lculated using the 2020 CKD-EPI creatinine equation. Glucose [Mass/Vol] 107 mg/dL High 65 - 99 mg/dL [facility] HCO3 [Moles/Vol] 18 mmol/L Low 21 - 32 mmol/L [facility] Potassium [Moles/Vol] 4.1 mmol/L 3.5 - 5.1 mmol/L [facility] Sodium [Moles/Vol] 139 mmol/L 135 - 145 mmol/L [facility] Urea nitrogen [Mass/Vol] 85 mg/dL High 8 - 25 mg/d L [facility] Urea nitrogen/Creatinine [Mass ratio] 34.8 mg/mg High 10.0 - 20.0 [facility] has implemented the eGFR calculation approach that does not have a coefficient for race that conforms to the NKF-ASN Task Force Recommendations. [facility] Anion gap [Moles/Vol] 16 mmol/L 10 - 2 0 mmol/L [facility] Calcium [Mass/Vol] 8.3 mg/dL Low 8.4 - 10. 2 mg/dL [facility] Chloride [Moles/Vol] 103 mmol/L 98 - 10 8 mmol/L [facility] Creatinine [Mass/Vol] 2.6 mg/dL High 0.80 - 1.30 mg/dL [facility] GFR/1.73 sq M.predicted CKD-EPI (S/P/Bld) [Vol rate/Area] 24 Low - PINF [facility] Comment on above: Estimated GFR was ca lculated using the 2020 CKD-EPI creatinine equation. Glucose [Mass/Vol] 495 mg/dL Critically high 65 - 99 mg/d L [facility] HCO3 [Moles/Vol] 18 mmol/L Low 21 - 32 mmol/L [facility] Potassium [Moles/Vol] 5 mmol/L 3.5 - 5.1 mmol/L [facility] Sodium [Moles/Vol] 132 mmol/L Low 135 - 145 mmol/L [facility] Urea nitrogen [Mass/Vol] 93 mg/dL High 8 - 25 mg/d L [facility] Urea nitrogen/Creatinine [Mass ratio] 35.8 mg/mg High 10.0 - 20.0 [facility] has implemented the eGFR calculation approach that does not have a coefficient for race that conforms to the NKF-ASN Task Force Recommendations. [facility] Beta hydroxybutyrate [Moles/ Vol]on 10-28-2024 Interpretation and review of laboratory results Normal [facility] Interpretation and review of laboratory results Normal [facility] Interpretation and review of laboratory results Abnormal [facility] Beta-Hydroxybutyrateon 10-28 Beta hydroxybutyrate [Moles/Vol] 0.1 mmol/L 0.0 - 0.3 mmol/L [facility] Beta hydroxybutyrate [Moles/Vol] mmol/L 0.0 - 0.3 mmol/L [facility] Beta hydroxybutyrate [Moles/Vol] 0.4 mmol/L High 0.0 - 0.3 mmol/L [facility] CBC Auto Differentialon 10-02 Basophils (Bld) [#/Vol] 0.08 10*3/uL [facility] Basophils/100 WBC (Bld) 0.8 % [facility] Eosinophils (Bld) [#/Vol] 0.06 10*3/uL [facility] Eosinophils/100 WBC (Bld) 0.6 % [facility] Erythrocyte distribution width (RBC) [Entitic vol] 13.6 % 11.6 - 14.8 % [facility] Hematocrit (Bld) [Volume fraction] 29 % Low 41.0 - 53.0 % [facility] Hemoglobin (Bld) [Mass/Vol] 9.3 g/dL Low 13.5 - 17.5 g/dL [facility] Immature granulocytes (Bld) [#/Vol] 0.03 10*3/uL [facility] Immature granulocytes/100 WBC (Bld) 0.3 % [facility] Comment on above: The IG parameter is the percentage of metamyelocytes, myelocytes and promyelocytes. An immature granulocyte count (IG) of 1% or more suggests the possibility of infection, an IG count of 3% is very likely related to an infection. Interpretation and review of laboratory results Abnormal [facility] Lymphocytes (Bld) [#/Vol] 2.94 10*3/uL [facility] Lymphocytes/100 WBC (Bld) 28.7 % [facility] MCH (RBC) [Entitic mass] 30.3 pg 26. 0 - 34.0 pg [facility] MCHC (RBC) [Mass/Vol] 32.1 g/dL 31.0 - 37.0 g/dL [facility] MCV (RBC) [Entitic vol] 94.5 fL 80.0 - 100.0 fL [facility] Monocytes (Bld) [#/Vol] 1.02 10*3/uL High [facility] Monocytes/100 WBC (Bld) 10 % [facility] Neutrophils (Bld) [#/Vol] 6.12 10*3/uL [facility] Neutrophils/100 WBC (Bld) 59.6 % [facility] Nucleated RBC (Bld) [#/Vol] 0 10*3/uL [facility] Nucleated RBC/100 WBC (Bld) [Ratio] 0 % [facility] Platelet mean volume (Bld) [Entitic vol] 10.8 fL 9.4 - 12.4 fL [facility] Platelets (Bld) [#/Vol] 188 10*3/uL [facility] RBC (Bld) [#/Vol] 3.07 10*6/uL Low [facility] WBC (Bld) [#/Vol] 10.25 10*3/uL [facility] CBC WITH AUTO DIFFERENTIALon 10-28-2024 AUTO NRBC 0.0 % Normal [facility] Comment on above: Performed By: #### L [id number] #### LAB [address] [address] Moody Martinez M.D. [id number] AUTO NRBC ABS COUNT 0.00 K/mcL Normal 0.00-0.00 [facility] Comment on above: Performed By: #### L [id number] #### LAB [address] [id number] Moody Martinez M.D. [id number] BASOPHILS ABSOLUTE COUNT 0.08 K/mcL Normal 0.00-0.30 [facility] Comment on above: Performed By: #### L [id number] #### LAB [address] [address] Moody Martinez M.D. [id number] Basophils/100 WBC (Bld) 0.8 % Normal [facility] Comment on above: Performed By: #### L [id number] #### LAB [address] [address] Moody Martinez M.D. [id number] Eosinophils (Bld) [#/Vol] 0.06 10*3/uL Normal 0.00-0.5 0 [facility] Comment on above: Performed By: #### L [id number] #### LAB [address] [address] Moody Martinez M.D. [id number] Eosinophils/100 WBC (Bld) 0.6 % Normal [facility] Comment on above: Performed By: #### L [id number] #### LAB [address] [address] Moody Martinez M.D. [id number] Erythrocyte distribution width (RBC) [Ratio] 13.6 % Normal 11.6-14.8 [facility] Comment on above: Performed By: #### L [id number] #### LAB [address] [address] Moody Martinez M.D. [id number] Hematocrit (Bld) [Volume fraction] 29.0 % Low 41.0-53.0 [facility] Comment on above: Performed By: #### L [id number] #### LAB [address] [address] Moody Martinez M.D. [id number] Hemoglobin (Bld) [Mass/Vol] 9.3 g/dL Low 13.5-17.5 [facility] Comment on above: Performed By: #### L [id number] #### LAB [address] [address] Moody Martinez M.D. [id number] IG ABSOLUTE 0.03 K/mcL Normal 0.00-0.30 [facility] Comment on above: Performed By: #### L [id number] #### LAB [address] [place] [address] Moody Martinez M.D. [id number] IG PERCENT 0.30 % Normal [facility] Comment on above: Result Comment: The IG parameter is the percentage of metamyelocytes, myelocytes and promyelocytes. An immature granulocyte count (IG) of 1% or more suggests the possibility of infection, an IG count of 3% is very likely related to an infection. Performed By: #### L [id number] #### LAB [address] [address] Moody Martinez M.D. [id number] Lymphocytes (Bld) [#/Vol] 2.94 10*3/uL Normal 0.90-4.0 0 [facility] Comment on above: Performed By: #### L [id number] #### LAB [address] [address] Moody Martinez M.D. [id number] Lymphocytes/100 WBC (Bld) 28.7 % Normal [facility] Comment on above: Performed By: #### L [id number] #### LAB [address] [address] Moody Martinez M.D. [id number] MCH (RBC) [Entitic mass] 30.3 pg Normal 26.0-34.0 [facility] Comment on above: Performed By: #### L [id number] #### LAB [address] [address] Moody Martinez M.D. [id number] MCV (RBC) [Entitic vol] 94.5 fL Normal 80.0-100.0 [facility] Comment on above: Performed By: #### L [id number] #### LAB [address] [address] Moody Martinez M.D. [id number] MEAN CORPUSCULAR HEMOGLOBIN CONC 32.1 g/dL Normal 31.0-37.0 [facility] Comment on above: Performed By: #### L [id number] #### LAB [address] [place] [address] Moody Martinez M.D. [id number] Monocytes (Bld) [#/Vol] 1.02 10*3/uL High 0.30-0.90 [facility] Comment on above: Performed By: #### L [id number] #### LAB [address] [address] Moody Martinez M.D. [id number] Monocytes/100 WBC (Bld) 10.0 % Normal [facility] Comment on above: Performed By: #### L [id number] #### LAB [address] [address] Moody Martinez M.D. [id number] NEUTROPHILS ABSOLUTE COUNT 6.12 K/mcL Normal 1.70-7.00 [facility] Comment on above: Performed By: #### L [id number] #### LAB [address] [address] Moody Martinez M.D. [id number] Neutrophils/100 WBC (Bld) 59.6 % Normal [facility] Comment on above: Performed By: #### L [id number] #### LAB [address] [address] Moody Martinez M.D. [id number] Platelet mean volume (Bld) [Entitic vol] 10.8 fL Normal 9.4-12.4 [facility] Comment on above: Performed By: #### L [id number] #### LAB [address] [address] Moody Martinez M.D. [id number] Platelets (Bld) [#/Vol] 188 10*3/uL Normal 150-400 [facility] Comment on above: Performed By: #### L [id number] #### LAB [address] [address] Moody Martinez M.D. [id number] RBC (Bld) [#/Vol] 3.07 10*6/uL Low 4.50-5.90 [facility] Comment on above: Performed By: #### L [id number] #### LAB [address] [address] Moody Martinez M.D. [id number] WBC (Bld) [#/Vol] 10.25 10*3/uL Normal 4.50-11.00 [facility] Comment on above: Performed By: #### L [id number] #### [facility] LAB [address] [place] [address] Moody Martinez M.D. [id number] CONSULTon 10-28-2024 CONSULT Attestation signed by Pedro West MD at 10/29/2024 9:27 AM Patient was evaluated by Keeley Patton CNP. Patient ID: Patient Name: Enoc Armando Admit Date: 10/27/2024 MR #: [id number] : 1945 Current location: [facility] Physicians: Ryley Jeter MD (Family); Dr [...] with chronic low back pain presented to [facility] on 10/27/2024 for an elective left heart [...] Diagnosed in 1994. Patient is managed by [facility] endocrinology for his type 1 diabetes. He is currently taking Admelog insulin: 10 units at mealtime Lantus insulin: 12 units at bedtime Current monitoring regimen: home blood tests - 3 times daily Complications of diabetes include: Retinopathy: Negative Nephropathy: Positive Peripheral Neuropathy: Positive Autonomic Neuropathy: Negative Allergies: Allergies Allergen Reactions Ltmcgll-Iag-Vnz Reductase Inhibitors Muscle cramps Home Medications: Outpatient [...] MG table (more content not included)... Normal [facility] Glucose (Bld) [Mass/Vol]on 12-29-2023 Glucose [Mass/Vol] 321 mg/dL High 65 - 99 mg/dL [facility] Interpretation and review of laboratory results Abnormal [facility] Glucose [Mass/Vol] 288 mg/dL High 65 - 99 mg/dL [facility] Interpretation and review of laboratory results Abnormal [facility] Glucose [Mass/Vol] 130 mg/dL High 65 - 99 mg/dL [facility] Interpretation and review of laboratory results Abnormal [facility] Glucose [Mass/Vol] 55 mg/dL Critically low 65 - 99 mg/dL [facility] Interpretation and review of laboratory results Abnormal [facility] Critical result acted upon time of test. Test performed at bedside. [facility] Glucose [Mass/Vol] 85 mg/dL 65 - 99 mg/dL [facility] Interpretation and review of laboratory results Normal [facility] Glucose [Mass/Vol] 111 mg/dL High 65 - 99 mg/dL [facility] Interpretation and review of laboratory results Abnormal [facility] Glucose [Mass/Vol] 69 mg/dL 65 - 99 mg/dL [facility] Interpretation and review of laboratory results Normal [facility] Glucose [Mass/Vol] 76 mg/dL 65 - 99 mg/dL [facility] Interpretation and review of laboratory results Normal [facility] Glucose [Mass/Vol] 94 mg/dL 65 - 99 mg/dL [facility] Interpretation and review of laboratory results Normal [facility] Glucose [Mass/Vol] 115 mg/dL High 65 - 99 mg/dL [facility] Interpretation and review of laboratory results Abnormal [facility] Glucose [Mass/Vol] 168 mg/dL High 65 - 99 mg/dL [facility] Interpretation and review of laboratory results Abnormal [facility] Glucose [Mass/Vol] 215 mg/dL High 65 - 99 mg/dL [facility] Interpretation and review of laboratory results Abnormal [facility] Glucose [Mass/Vol] 336 mg/dL High 65 - 99 mg/dL [facility] Interpretation and review of laboratory results Abnormal [facility] Glucose [Mass/Vol] 443 mg/dL Critically high 65 - 99 mg/d L [facility] Interpretation and review of laboratory results Abnormal [facility] Critical result acted upon time of test. Test performed at bedside. [facility] HbA1c (Bld) [Mass fraction]o n 10-28-2024 Average glucose Estimated from glycated hemoglobin (Bld) [Mass/Vol] 237 mg/dL High 74 - 114 mg/dL [facility] Interpretation and review of laboratory results Abnormal [facility] Hemoglobin A1con 10-28-2024 HbA1c (Bld) [Mass fraction] 9.9 % High 4.2 - 5.6 % [facility] MAGNESIUM LEVELon 10-28-2024 Magnesium [Mass/Vol] 2.6 mg/dL High 1.6-2.4 [facility] Comment on above: Performed By: #### 4 [id number] #### LAB [address] [place], [place] [address] Moody Martinez M.D. [id number] Magnesium [Mass/Vol] 2.6 mg/dL High 1.6-2.4 [facility] Comment on above: Performed By: #### 4 [id number] #### [facility] LAB [address] [address] Moody Martinez M.D. [id number] Magnesium Levelon 10-28-2024 Magnesium [Mass/Vol] 2.6 mg/dL High 1.6 - 2 .4 mg/dL [facility] Magnesium [Mass/Vol] 2.6 mg/dL High 1.6 - 2 .4 mg/dL [facility] Magnesium [Mass/Vol] 2.6 mg/dL High 1.6 - 2 .4 mg/dL [facility] No Panel Informationon 10-28 Interpretation and review of laboratory results Abnormal [facility] Interpretation and review of laboratory results Abnormal [facility] Interpretation and review of laboratory results Abnormal [facility] PHOSPHORUSon 10-28-2024 Phosphate [Mass/Vol] 4.7 mg/dL High 2.3-3.7 [facility] Comment on above: Performed By: #### 4 [id number] ####[facility] LAB [address] [place], [place] [address] Moody Martinez M.D. [id number] POC GLUCOSE - [facility] 024 Glucose [Mass/Vol] 321 mg/dL High [address] [place] [address] Comment on above: Performed By: #### L [id number] #### [facility] LAB [address] [place], [place] [address] Moody Martinez M.D. [id number] Glucose [Mass/Vol] 288 mg/dL High [address] [place] [address] Comment on above: Performed By: #### 4 [id number] ####[facility] LAB [address] [id number] Moody Martinez M.D. [id number] Glucose [Mass/Vol] 130 mg/dL High [address] [place] [address] Comment on above: Performed By: #### 4 [id number] ####[facility] LAB [address] [id number] Moody Martinez M.D. [id number] Glucose [Mass/Vol] 55 mg/dL Off scale low [address] [place] [address] Comment on above: Order Comment: Criti christian result acted upon time of test. Test performed at bedside. Performed By: #### 4 [id number] #### LAB [address] [address] Moody Martinez M.D. [id number] Glucose [Mass/Vol] 85 mg/dL Normal [address] [place] [address] Comment on above: Performed By: #### 4 [id number] #### LAB [address] [address] Moody Martinez M.D. [id number] Glucose [Mass/Vol] 111 mg/dL High [address] [place] [address] Comment on above: Performed By: #### L [id number] #### LAB [address] [address] Moody Martinez M.D. [id number] Glucose [Mass/Vol] 69 mg/dL Normal [address] [place] [address] Comment on above: Performed By: #### 4 [id number] #### LAB [address] [address] Moody Martinez M.D. [id number] Glucose [Mass/Vol] 76 mg/dL Normal [address] [place] [address] Comment on above: Performed By: #### 4 [id number] ####[facility] LAB [address] [address] Moody Martinez M.D. [id number] Glucose [Mass/Vol] 94 mg/dL Normal [address] [place] [address] Comment on above: Performed By: #### 4 [id number] #### LAB [address] [place], [place] [address] Moody Martinez M.D. [id number] Glucose [Mass/Vol] 115 mg/dL High [address] [place] [address] Comment on above: Performed By: #### 4 [id number] #### LAB [address] [address] Moody Martinez M.D. [id number] Glucose [Mass/Vol] 168 mg/dL High [address] [place] [address] Comment on above: Performed By: #### L [id number] #### LAB [address] [address] Moody Martinez M.D. [id number] Glucose [Mass/Vol] 215 mg/dL High [address] [place] [address] Comment on above: Performed By: #### 4 [id number] #### LAB [address] [address] Moody Martinez M.D. [id number] Glucose [Mass/Vol] 336 mg/dL High [address] [place] [address] Comment on above: Performed By: #### 4 [id number] #### LAB [address] [address] Moody Martinez M.D. [id number] Phosphoruson 10-28-2024 Phosphate [Mass/Vol] 4.7 mg/dL High 2.3 - 3 .7 mg/dL [facility] Phosphate [Mass/Vol] 4.4 mg/dL High 2.3 - 3 .7 mg/dL [facility] ABOR VERIFICATIONon ABO and Rh group Nom (Bld) Blood group A Rh(D) positive Normal [facility] ABO and Rh group Nom (Bld) ABO/Rh Verification [facility] Comment on above: Result Comment: Twila ent's ABO/Rh is verified. [facility] Verificationon 024 ABO and Rh group Nom (Bld) Blood group A Rh(D) positive [facility] ABO and Rh group Nom (Bld) ABO/Rh Verification [facility] Comment on above: Patient's ABO/Rh is verified. [facility] AMYLASEon 10-27-2024 Amylase [Catalytic activity/Vol] 26.8 U/L Normal 13.0-53.0 [facility] Comment on above: Performed By: #### 4 [id number] #### LAB [address] [place], [place] [address] Moody Martinez M.D. [id number] APTTon 10-27-2024 aPTT Coag (Bld) [Time] 74 s High [facility] aPTT Coag (Bld) [Time] 74 s High 23-34 [facility] Comment on above: Order Comment: Thera peutic range for APTT's is 68 - 104 seconds Performed By: #### 4 [id number] #### LAB [address] [place], [place] [address] Moody Martinez M.D. [id number] Amylaseon 10-27-2024 Amylase.pancreatic [Catalytic activity/Vol] 26.8 U/L 13.0 - 53.0 U/L [facility] BASIC METABOLIC PANELon 10-02 Anion gap [Moles/Vol] 16 mmol/L Normal 10-20 [facility] Comment on above: Order Comment: [facility] has implemented the eGFR calculation approach that does not have a coefficient for race that conforms to the NKF-ASN Task Force Recommendations. Performed By: #### 4 [id number] #### LAB [address] [place], [place] [address] Moody Martinez M.D. [id number] Calcium [Mass/Vol] 8.3 mg/dL Low 8.4-10.2 [facility] Comment on above: Order Comment: [facility] has implemented the eGFR calculation approach that does not have a coefficient for race that conforms to the NKF-ASN Task Force Recommendations. Performed By: #### 4 [id number] #### LAB [address] [place], [place] [address] Moody Martinez M.D. [id number] Chloride [Moles/Vol] 103 mmol/L Normal 98-108 [facility] Comment on above: Order Comment: [facility] has implemented the eGFR calculation approach that does not have a coefficient for race that conforms to the NKF-ASN Task Force Recommendations. Performed By: #### 4 [id number] #### LAB [address] [address] Moody Martinez M.D. [id number] Creatinine [Mass/Vol] 2.60 mg/dL High 0.80-1.30 [facility] Comment on above: Order Comment: [facility] has implemented the eGFR calculation approach that does not have a coefficient for race that conforms to the NKF-ASN Task Force Recommendations. Performed By: #### 4 [id number] #### LAB [address] [address] Moody Martinez M.D. [id number] EGFR 24 mL/min/1.73 m2 Low >=60 [facility] Comment on above: Order Comment: [facility] has implemented the eGFR calculation approach that does not have a coefficient for race that conforms to the NKF-ASN Task Force Recommendations. Result Comment: Albin mated GFR was calculated using the 2020 CKD-EPI creatinine equation. Performed By: #### 4 [id number] #### LAB [address] [address] Moody Martinez M.D. [id number] Glucose [Mass/Vol] 495 mg/dL Off scale high 65-99 [facility] Comment on above: Order Comment: [facility] has implemented the eGFR calculation approach that does not have a coefficient for race that conforms to the NKF-ASN Task Force Recommendations. Performed By: #### 4 [id number] #### LAB [address] [address] Moody Martinez M.D. [id number] HCO3 (Bld) [Moles/Vol] 18 mmol/L Low 21-32 [facility] Comment on above: Order Comment: [facility] has implemented the eGFR calculation approach that does not have a coefficient for race that conforms to the NKF-ASN Task Force Recommendations. Performed By: #### 4 [id number] #### LAB [address] [address] Moody Martinez M.D. [id number] Potassium [Moles/Vol] 5.0 mmol/L Normal 3.5-5.1 [facility] Comment on above: Order Comment: [facility] has implemented the eGFR calculation approach that does not have a coefficient for race that conforms to the NKF-ASN Task Force Recommendations. Performed By: #### 4 [id number] #### LAB [address] [place], [place] [address] Moody Martinez M.D. [id number] Sodium [Moles/Vol] 132 mmol/L Low 135-145 [facility] Comment on above: Order Comment: [facility] has implemented the eGFR calculation approach that does not have a coefficient for race that conforms to the NKF-ASN Task Force Recommendations. Performed By: #### 4 6932 #### LAB [address] [place], [place] [address] Moody Martinez M.D. [id number] Urea nitrogen [Mass/Vol] 93 mg/dL High 8- [facility] Comment on above: Order Comment: [facility] has implemented the eGFR calculation approach that does not have a coefficient for race that conforms to the NKF-ASN Task Force Recommendations. Performed By: #### 4 6905 #### LAB [address] [place], [place] [address] Moody Martinez M.D. [id number] Urea nitrogen/Creatinine [Mass ratio] 35.8 mg/mg High 10.0-20.0 [facility] Comment on above: Order Comment: [facility] has implemented the eGFR calculation approach that does not have a coefficient for race that conforms to the NKF-ASN Task Force Recommendations. Performed By: #### 4 6909 #### [facility] LAB [address] [place], [place] [address] Moody Martinez M.D. [id number] BETA-HYDROXYBUTYRATEon 10-27 BETA-HYDROXYBUTYRATE 0.4 mmol/L High 0.0-0.3 [facility] Comment on above: Performed By: #### 4 5138 #### LAB [address] [place] [address] Moody Martinez M.D. [id number] BETA-HYDROXYBUTYRATE 2.3 mmol/L High 0.0-0.3 [facility] Comment on above: Performed By: #### 4 5139 #### LAB [address] [place] [address] Moody Martinez M.D. [id number] BETA-HYDROXYBUTYRATE 0.7 mmol/L High 0.0-0.3 [facility] Comment on above: Performed By: #### 4 6932 #### LAB [address] [place] [address] Moody Martinez M.D. [id number] BILIRUBIN, DIRECTon 10-27-20 BILIRUBIN, DIRECT < Normal 0.0-0.4 [facility] Comment on above: Performed By: #### 4 5145 #### LAB [address] [place] [address] Moody Martinez M.D. [id number] Beta hydroxybutyrate [Moles/ Vol]on 10-27-2024 Interpretation and review of laboratory results Abnormal [facility] Interpretation and review of laboratory results Abnormal [facility] Beta-Hydroxybutyrateon 10-27 Beta hydroxybutyrate [Moles/Vol] 2.3 mmol/L High 0.0 - 0.3 mmol/L [facility] Beta hydroxybutyrate [Moles/Vol] 0.7 mmol/L High 0.0 - 0.3 mmol/L [facility] Bilirubin.direct [Mass/Vol]o n 10-27-2024 Bilirubin.conjugated [Mass/Vol] mg/dL 0.0 - 0.4 mg/dL [facility] Interpretation and review of laboratory results Normal [facility] Blood type and Indirect anti body screen panel (Bld)on 10-27-2024 ABO and Rh group Nom (Bld) Blood group A Rh(D) positive [facility] Blood group antibody screen Ql Negative [facility] Specimen Expires 10/30/2024 23:59 EST [facility] CBC Auto Differentialon 10-02 Basophils (Bld) [#/Vol] 0.04 10*3/uL [facility] Basophils/100 WBC (Bld) 0.5 % [facility] Eosinophils (Bld) [#/Vol] 0 10*3/uL [facility] Eosinophils/100 WBC (Bld) 0 % [facility] Erythrocyte distribution width (RBC) [Entitic vol] 13.7 % 11.6 - 14.8 % [facility] Hematocrit (Bld) [Volume fraction] 34.8 % Low 41.0 - 53.0 % [facility] Hemoglobin (Bld) [Mass/Vol] 11.2 g/dL Low 13.5 - 17.5 g/dL [facility] Immature granulocytes (Bld) [#/Vol] 0.04 10*3/uL [facility] Immature granulocytes/100 WBC (Bld) 0.5 % [facility] Comment on above: The IG parameter is the percentage of metamyelocytes, myelocytes and promyelocytes. An immature granulocyte count (IG) of 1% or more suggests the possibility of infection, an IG count of 3% is very likely related to an infection. Interpretation and review of laboratory results Abnormal [facility] Lymphocytes (Bld) [#/Vol] 1.2 10*3/uL [facility] Lymphocytes/100 WBC (Bld) 13.8 % [facility] MCH (RBC) [Entitic mass] 30 pg 26. 0 - 34.0 pg [facility] MCHC (RBC) [Mass/Vol] 32.2 g/dL 31.0 - 37.0 g/dL [facility] MCV (RBC) [Entitic vol] 93.3 fL 80.0 - 100.0 fL [facility] Monocytes (Bld) [#/Vol] 0.11 10*3/uL Low [facility] Monocytes/100 WBC (Bld) 1.3 % [facility] Neutrophils (Bld) [#/Vol] 7.32 10*3/uL High [facility] Neutrophils/100 WBC (Bld) 83.9 % [facility] Nucleated RBC (Bld) [#/Vol] 0 10*3/uL [facility] Nucleated RBC/100 WBC (Bld) [Ratio] 0 % [facility] Platelet mean volume (Bld) [Entitic vol] 11.2 fL 9.4 - 12.4 fL [facility] Platelets (Bld) [#/Vol] 234 10*3/uL [facility] RBC (Bld) [#/Vol] 3.73 10*6/uL Low [facility] WBC (Bld) [#/Vol] 8.71 10*3/uL [facility] CBC WITH AUTO DIFFERENTIALon 10-27-2024 AUTO NRBC 0.0 % Normal [facility] Comment on above: Performed By: #### L [id number] #### LAB [address] [place] [address] Moody Martinez M.D. [id number] AUTO NRBC ABS COUNT 0.00 K/mcL Normal 0.00-0.00 [facility] Comment on above: Performed By: #### L [id number] #### LAB [address] [place] [address] Moody Martinez M.D. [id number] BASOPHILS ABSOLUTE COUNT 0.04 K/mcL Normal 0.00-0.30 [facility] Comment on above: Performed By: #### L [id number] #### LAB [address] [place] [address] Moody Martinez M.D. [id number] Basophils/100 WBC (Bld) 0.5 % Normal [facility] Comment on above: Performed By: #### L [id number] #### LAB [address] [place] [address] Moody Martinez M.D. [id number] Eosinophils (Bld) [#/Vol] 0.00 10*3/uL Normal 0.00-0.5 0 [facility] Comment on above: Performed By: #### L [id number] #### LAB [address] [place] [address] Moody Martinez M.D. [id number] Eosinophils/100 WBC (Bld) 0.0 % Normal [facility] Comment on above: Performed By: #### L [id number] #### LAB [address] [place] [address] Moody Martinez M.D. [id number] Erythrocyte distribution width (RBC) [Ratio] 13.7 % Normal 11.6-14.8 [facility] Comment on above: Performed By: #### L [id number] #### LAB [address] [place] [address] Moody Martinez M.D. [id number] Hematocrit (Bld) [Volume fraction] 34.8 % Low 41.0-53.0 [facility] Comment on above: Performed By: #### L [id number] #### LAB [address] [place] [address] Moody Martinez M.D. [id number] Hemoglobin (Bld) [Mass/Vol] 11.2 g/dL Low 13.5-17.5 [facility] Comment on above: Performed By: #### L [id number] #### LAB [address] [place] [address] Moody Martinez M.D. [id number] IG ABSOLUTE 0.04 K/mcL Normal 0.00-0.30 [facility] Comment on above: Performed By: #### L [id number] #### LAB [address] [place] [address] Moody Martinez M.D. [id number] IG PERCENT 0.50 % [facility] Comment on above: Result Comment: The IG parameter is the percentage of metamyelocytes, myelocytes and promyelocytes. An immature granulocyte count (IG) of 1% or more suggests the possibility of infection, an IG count of 3% is very likely related to an infection. Performed By: #### L [id number] #### LAB [address] [place] [address] Moody Martinez M.D. [id number] Lymphocytes (Bld) [#/Vol] 1.20 10*3/uL Normal 0.90-4.0 0 [facility] Comment on above: Performed By: #### L [id number] ####[facility] LAB [address] [place] [address] Moody Martinez M.D. [id number] Lymphocytes/100 WBC (Bld) 13.8 % [facility] Comment on above: Performed By: #### L [id number] #### LAB [address] [place] [address] Moody Martinez M.D. [id number] MCH (RBC) [Entitic mass] 30.0 pg Normal 26.0-34.0 [facility] Comment on above: Performed By: #### L [id number] #### LAB [address] [place] [address] Moody Martinez M.D. [id number] MCV (RBC) [Entitic vol] 93.3 fL Normal 80.0-100.0 [facility] Comment on above: Performed By: #### L [id number] #### LAB [address] [place] [address] Moody Martinez M.D. [id number] MEAN CORPUSCULAR HEMOGLOBIN CONC 32.2 g/dL Normal 31.0-37.0 [facility] Comment on above: Performed By: #### L [id number] #### LAB [address] [place] [address] Moody Martinez M.D. [id number] Monocytes (Bld) [#/Vol] 0.11 10*3/uL Low 0.30-0.90 [facility] Comment on above: Performed By: #### L [id number] #### LAB [address] [place] [address] Moody Martinez M.D. [id number] Monocytes/100 WBC (Bld) 1.3 % Normal [facility] Comment on above: Performed By: #### L [id number] #### LAB [address] [place] [address] Moody Martinez M.D. [id number] NEUTROPHILS ABSOLUTE COUNT 7.32 K/mcL High 1.70-7.00 [facility] Comment on above: Performed By: #### L [id number] #### LAB [address] [place] [address] Moody Martinez M.D. [id number] Neutrophils/100 WBC (Bld) 83.9 % Normal [facility] Comment on above: Performed By: #### L [id number] #### LAB [address] [place] [address] Moody Martinez M.D. [id number] Platelet mean volume (Bld) [Entitic vol] 11.2 fL Normal 9.4-12.4 [facility] Comment on above: Performed By: #### L [id number] #### LAB [address] [place] [address] Moody Martinez M.D. [id number] Platelets (Bld) [#/Vol] 234 10*3/uL Normal 150-400 [facility] Comment on above: Performed By: #### L [id number] ####[facility] LAB [address] [place] [address] Moody Martinez M.D. [id number] RBC (Bld) [#/Vol] 3.73 10*6/uL Low 4.50-5.90 [facility] Comment on above: Performed By: #### L [id number] #### LAB [address] [place] [address] Moody Martinez M.D. [id number] WBC (Bld) [#/Vol] 8.71 10*3/uL Normal 4.50-11.00 [facility] Comment on above: Performed By: #### L [id number] #### LAB [address] [place] [address] Moody Martinez M.D. [id number] CITRATED TEG (CARDIAC) WITH HEPARINASE PANEL [facility] 10-27-2024 (CFF-FLEV) CITRATED FUNCTIONAL FIBRINOGEN -EST. FUNCTIONAL FIBRINOGEN LEVEL 381.4 mg/dL Normal 278.0-581.0 [facility] Comment on above: Performed By: #### L [id number] ####[facility] LAB [address] [place] [address] Moody Martinez M.D. [id number] (CFF-MA) CITRATED FUNCTIONAL FIBRINOGEN - [place] 20.9 mm Normal 15.0-32.0 [facility] Comment on above: Performed By: #### L [id number] ####[facility] LAB [address] [place] [address] Moody Martinez M.D. [id number] (CK-ANGLE) CITRATED KAOLIN-ALPHA ANGLE 73.2 deg Normal 63.0-78.0 [facility] Comment on above: Performed By: #### L [id number] #### LAB [address] [place] [address] Moody Martinez M.D. [id number] (CK-K) CITRATED KAOLIN-SPEED OF CLOT FORMATION 1.3 min Normal 0.8-2.1 [facility] Comment on above: Performed By: #### L [id number] #### LAB [address] [place] [address] Moody Martinez M.D. [id number] (CK-MA) CITRATED KAOLIN-MAXIMUM CLOT STRENGTH 50.9 mm Low 52.0-69.0 [facility] Comment on above: Performed By: #### L [id number] #### LAB [address] [place] [address] Moody Martinez M.D. [id number] (CK-R) CITRATED KAOLIN - REACTION TIME 16.4 min High 4.6-9.1 [facility] Comment on above: Performed By: #### L [id number] #### LAB [address] [place] [address] Moody Martinez M.D. [id number] (CKH-R) CITRATED KAOLIN WITH HEPARINASE-REACTION TIME 7.6 min Normal 4.3-8.3 [facility] Comment on above: Performed By: #### L [id number] ####[facility] LAB [address] [place] [address] Moody Martinez M.D. [id number] (AIRCRAFT STRESS ANALYST-MA) CITRATED RAPID TEG - [place] 62.3 mm Normal 52.0-70.0 [facility] Comment on above: Performed By: #### L [id number] #### LAB [address] [place] [address] Moody Martinez M.D. [id number] [facility] Albumin [Mass/Vol] 3.4 g/dL Normal 3.2-5.2 [facility] Comment on above: Order Comment: [facility] has implemented the eGFR calculation approach that does not have a coefficient for race that conforms to the NKF-ASN Task Force Recommendations. Performed By: #### 4 6126 #### LAB [address] [place] [address] Moody Martinez M.D. [id number] ALP [Catalytic activity/Vol] 86 U/L Normal 40-150 [facility] Comment on above: Order Comment: [facility] has implemented the eGFR calculation approach that does not have a coefficient for race that conforms to the NKF-ASN Task Force Recommendations. Performed By: #### 4 6126 #### LAB [address] [place] [address] Moody Martinez M.D. [id number] ALT [Catalytic activity/Vol] 13 U/L Normal 0-50 U/L [facility] Comment on above: Order Comment: [facility] has implemented the eGFR calculation approach that does not have a coefficient for race that conforms to the NKF-ASN Task Force Recommendations. Performed By: #### 4 6126 #### LAB [address] [place] [address] Moody Martinez M.D. [id number] Anion gap [Moles/Vol] 20 mmol/L Normal 10-20 [facility] Comment on above: Order Comment: [facility] has implemented the eGFR calculation approach that does not have a coefficient for race that conforms to the NKF-ASN Task Force Recommendations. Performed By: #### 4 6126 #### LAB [address] [place] [address] Moody Martinez M.D. [id number] AST [Catalytic activity/Vol] 12 U/L Normal 0-50 U/L [facility] Comment on above: Order Comment: [facility] has implemented the eGFR calculation approach that does not have a coefficient for race that conforms to the NKF-ASN Task Force Recommendations. Performed By: #### 4 6126 #### LAB [address] [place] [address] Moody Martinez M.D. [id number] Bilirubin [Mass/Vol] 0.3 mg/dL Normal 0.0-1.3 [facility] Comment on above: Order Comment: [facility] has implemented the eGFR calculation approach that does not have a coefficient for race that conforms to the NKF-ASN Task Force Recommendations. Performed By: #### 4 6126 #### LAB [address] [place] [address] Moody Martinez M.D. [id number] Calcium [Mass/Vol] 8.4 mg/dL Normal 8.4-10.2 [facility] Comment on above: Order Comment: [facility] has implemented the eGFR calculation approach that does not have a coefficient for race that conforms to the NKF-ASN Task Force Recommendations. Performed By: #### 4 6126 #### LAB [address] [place] [address] Moody Martinez M.D. [id number] Chloride [Moles/Vol] 99 mmol/L Normal 98-108 [facility] Comment on above: Order Comment: [facility] has implemented the eGFR calculation approach that does not have a coefficient for race that conforms to the NKF-ASN Task Force Recommendations. Performed By: #### 4 6126 #### LAB [address] [place] [address] Moody Martinez M.D. [id number] Creatinine [Mass/Vol] 2.55 mg/dL High 0.80-1.30 [facility] Comment on above: Order Comment: [facility] has implemented the eGFR calculation approach that does not have a coefficient for race that conforms to the NKF-ASN Task Force Recommendations. Performed By: #### 4 6126 #### LAB [address] [place] [address] Moody Martinez M.D. [id number] EGFR 25 mL/min/1.73 m2 Low >=60 [facility] Comment on above: Order Comment: [facility] has implemented the eGFR calculation approach that does not have a coefficient for race that conforms to the NKF-ASN Task Force Recommendations. Result Comment: Albin mated GFR was calculated using the 2020 CKD-EPI creatinine equation. Performed By: #### 4 6187 #### LAB [address] [place] [address] Moody Martinez M.D. [id number] Glucose [Mass/Vol] 564 mg/dL Off scale high 65-99 [facility] Comment on above: Order Comment: [facility] has implemented the eGFR calculation approach that does not have a coefficient for race that conforms to the NKF-ASN Task Force Recommendations. Performed By: #### 4 6126 #### LAB [address] [place] [address] Moody Martinez M.D. [id number] HCO3 (Bld) [Moles/Vol] 15 mmol/L Low 21-32 [facility] Comment on above: Order Comment: [facility] has implemented the eGFR calculation approach that does not have a coefficient for race that conforms to the NKF-ASN Task Force Recommendations. Performed By: #### 4 6126 #### LAB [address] [place] [address] Moody Martinez M.D. [id number] Potassium [Moles/Vol] 5.9 mmol/L High 3.5-5.1 [facility] Comment on above: Order Comment: [facility] has implemented the eGFR calculation approach that does not have a coefficient for race that conforms to the NKF-ASN Task Force Recommendations. Performed By: #### 4 6126 #### LAB [address] [place] [address] Moody Martinez M.D. [id number] Protein [Mass/Vol] 5.8 g/dL Low 6.0-8.0 [facility] Comment on above: Order Comment: [facility] has implemented the eGFR calculation approach that does not have a coefficient for race that conforms to the NKF-ASN Task Force Recommendations. Performed By: #### 4 6126 #### LAB [address] [place] [address] Moody Martinez M.D. [id number] Sodium [Moles/Vol] 128 mmol/L Low 135-145 [facility] Comment on above: Order Comment: [facility] has implemented the eGFR calculation approach that does not have a coefficient for race that conforms to the NKF-ASN Task Force Recommendations. Performed By: #### 4 6126 #### LAB [address] [place] [address] Moody Martinez M.D. [id number] Urea nitrogen [Mass/Vol] 93 mg/dL High 8-25 [facility] Comment on above: Order Comment: [facility] has implemented the eGFR calculation approach that does not have a coefficient for race that conforms to the NKF-ASN Task Force Recommendations. Performed By: #### 4 6126 #### LAB [address] [place] [address] Moody Martinez M.D. [id number] Urea nitrogen/Creatinine [Mass ratio] 36.5 mg/mg High 10.0-20.0 [facility] Comment on above: Order Comment: [facility] has implemented the eGFR calculation approach that does not have a coefficient for race that conforms to the NKF-ASN Task Force Recommendations. Performed By: #### 4 6126 #### LAB [address] [place] [address] Moody Martinez M.D. [id number] Albumin [Mass/Vol] 3.5 g/dL Normal 3.2-5.2 [facility] Comment on above: Order Comment: [facility] has implemented the eGFR calculation approach that does not have a coefficient for race that conforms to the NKF-ASN Task Force Recommendations. Performed By: #### 4 6126 #### LAB [address] [place] [address] Moody Martinez M.D. [id number] ALP [Catalytic activity/Vol] 92 U/L Normal 40-150 [facility] Comment on above: Order Comment: [facility] has implemented the eGFR calculation approach that does not have a coefficient for race that conforms to the NKF-ASN Task Force Recommendations. Performed By: #### 4 6126 #### LAB [address] [place] [address] Moody Martinez M.D. [id number] ALT [Catalytic activity/Vol] 21 U/L Normal 0-50 U/L [facility] Comment on above: Order Comment: [facility] has implemented the eGFR calculation approach that does not have a coefficient for race that conforms to the NKF-ASN Task Force Recommendations. Performed By: #### 4 6126 #### LAB [address] [place] [address] Moody Martinez M.D. [id number] Anion gap [Moles/Vol] 20 mmol/L Normal 10-20 [facility] Comment on above: Order Comment: [facility] has implemented the eGFR calculation approach that does not have a coefficient for race that conforms to the NKF-ASN Task Force Recommendations. Performed By: #### 4 6126 #### LAB [address] [place] [address] Moody Martinez M.D. [id number] AST [Catalytic activity/Vol] 14 U/L Normal 0-50 U/L [facility] Comment on above: Order Comment: [facility] has implemented the eGFR calculation approach that does not have a coefficient for race that conforms to the NKF-ASN Task Force Recommendations. Performed By: #### 4 6126 #### LAB [address] [place] [address] Moody Martinez M.D. [id number] Bilirubin [Mass/Vol] 0.3 mg/dL Normal 0.0-1.3 [facility] Comment on above: Order Comment: [facility] has implemented the eGFR calculation approach that does not have a coefficient for race that conforms to the NKF-ASN Task Force Recommendations. Performed By: #### 4 6126 #### LAB [address] [place] [address] Moody Martinez M.D. [id number] Calcium [Mass/Vol] 8.7 mg/dL Normal 8.4-10.2 [facility] Comment on above: Order Comment: [facility] has implemented the eGFR calculation approach that does not have a coefficient for race that conforms to the NKF-ASN Task Force Recommendations. Performed By: #### 4 6126 #### LAB [address] [place], [place] [address] Moody Martinez M.D. [id number] Chloride [Moles/Vol] 99 mmol/L Normal 98-108 [facility] Comment on above: Order Comment: [facility] has implemented the eGFR calculation approach that does not have a coefficient for race that conforms to the NKF-ASN Task Force Recommendations. Performed By: #### 4 6126 #### LAB [address] [place], [place] [address] Moody Martinez M.D. [id number] Creatinine [Mass/Vol] 2.60 mg/dL High 0.80-1.30 [facility] Comment on above: Order Comment: [facility] has implemented the eGFR calculation approach that does not have a coefficient for race that conforms to the NKF-ASN Task Force Recommendations. Performed By: #### 4 6126 #### LAB [address] [place], [place] [address] Moody Martinez M.D. [id number] EGFR 24 mL/min/1.73 m2 Low >=60 [facility] Comment on above: Order Comment: [facility] has implemented the eGFR calculation approach that does not have a coefficient for race that conforms to the NKF-ASN Task Force Recommendations. Result Comment: Albin mated GFR was calculated using the 2020 CKD-EPI creatinine equation. Performed By: #### 4 6126 #### LAB [address] [place], [place] [address] Moody Martinez M.D. [id number] Glucose [Mass/Vol] 467 mg/dL Off scale high 65-99 [facility] Comment on above: Order Comment: [facility] has implemented the eGFR calculation approach that does not have a coefficient for race that conforms to the NKF-ASN Task Force Recommendations. Performed By: #### 4 6126 #### LAB [address] [address] Moody Martinez M.D. [id number] HCO3 (Bld) [Moles/Vol] 17 mmol/L Low 21-32 [facility] Comment on above: Order Comment: [facility] has implemented the eGFR calculation approach that does not have a coefficient for race that conforms to the NKF-ASN Task Force Recommendations. Performed By: #### 4 6126 #### LAB [address] [place] [address] Moody Martinez M.D. [id number] Potassium [Moles/Vol] 6.3 mmol/L Off scale high 3.5-5.1 [facility] Comment on above: Order Comment: [facility] has implemented the eGFR calculation approach that does not have a coefficient for race that conforms to the NKF-ASN Task Force Recommendations. Performed By: #### 4 6126 #### LAB [address] [place] [address] Moody Martinez M.D. [id number] Protein [Mass/Vol] 5.6 g/dL Low 6.0-8.0 [facility] Comment on above: Order Comment: [facility] has implemented the eGFR calculation approach that does not have a coefficient for race that conforms to the NKF-ASN Task Force Recommendations. Performed By: #### 4 6126 #### LAB [address] [place] [address] Moody Martinez M.D. [id number] Sodium [Moles/Vol] 130 mmol/L Low 135-145 [facility] Comment on above: Order Comment: [facility] has implemented the eGFR calculation approach that does not have a coefficient for race that conforms to the NKF-ASN Task Force Recommendations. Performed By: #### 4 6126 #### LAB [address] [place] [address] Moody Martinez M.D. [id number] Urea nitrogen [Mass/Vol] 92 mg/dL High 8-25 [facility] Comment on above: Order Comment: [facility] has implemented the eGFR calculation approach that does not have a coefficient for race that conforms to the NKF-ASN Task Force Recommendations. Performed By: #### 4 6126 #### LAB [address] [place], [place] [address] Moody Martinez M.D. [id number] Urea nitrogen/Creatinine [Mass ratio] 35.4 mg/mg High 10.0-20.0 [facility] Comment on above: Order Comment: [facility] has implemented the eGFR calculation approach that does not have a coefficient for race that conforms to the NKF-ASN Task Force Recommendations. Performed By: #### 4 6126 #### LAB [address] [place], [place] [address] Moody Martinez M.D. [id number] CORONARY ANGIOGRAPHYon 10-27 CORONARY ANGIOGRAPHY This is [...] significant gradient across the aortic valve. Normal [facility] CT CHEST WITHOUT CONTRASTon 10-27-2024 CT CHEST [...] the subcutaneous tissues of the chest wall. [employer] Workstation ID: [id number] Dictated by: KAHLIL VARGHESE on WedOct 27, 2024 1:25:27 PM EST Transcribed by: WARREN PRITCHARD on WedOct 27, 2024 1:31:49 PM EST Finalized by: KAHLIL VARGHESE on WedOct 27, 2024 3:01:00 PM EST Normal [facility] Comment on above: Order Comment: Injur y/Trauma or Illness?:Illness/Other How long have you had these symptoms (acute/chronic)?:Acute Reason for exam?:cross clamp of aorta for CPB Type of Exam?:Initial Additional signs and symptoms?:cp CT Chest [facility] 10-27 1. Heavy atherosclerotic vascular disease including heavy plaquing of the ascending thoracic aorta but predominately involving the posterior wall. 2. Bilateral strand-like and dependent posterior lower lobe opacities consistent with atelectasis. Otherwise, no acute pulmonary disease or suspicious nodules. 3. Small hiatal hernia. 4. Mild edema in the subcutaneous tissues of the chest wall. [employer] Workstation ID: [id number] [facility] EXAMINATION: CT CHEST WITHOUT CONTRAST HISTORY: ORDERING [...] STRUCTURES: No aggressive bone lesions. Intact sternum. [employer] [facility] Abimael Kahlil Darren, DO - 10/27/2024 EXAMINATION: [...] the chest wall. [employer] Workstation ID: [id number] [facility] Radiology Study observation (narrative) [facility] Cardiac Catheterizationon Impression: Multivessel complex calcified [...] no significant gradient across the aortic valve. [employer] CV [facility] Citrated TEG (Cardiac) with HeparinaseOrdered By: Burton Zendejas on 10-27-2024 (CFF-FLEV) Cit. Func.Fib.Estimated Func.Fibrinogen Level 381.4 mg/dL 278.0 - 581.0 mg/dL [facility] Clot angle TEG (Bld) [Angle] 73.2 deg 63.0 - 78.0 deg [facility] Clot formation TEG (Bld) [Time] 1.3 min 0.8 - 2.1 min [facility] Clotting time after addition of heparinase TEG (Bld) 7.6 min 4.3 - 8.3 min [facility] Clotting time.intrinsic coagulation system activated Rotational TEG (Bld) 16.4 min High 4.6 - 9.1 min [facility] Interpretation and review of laboratory results Abnormal [facility] Maximum clot firmness TEG (Bld) [Length] 50.9 mm Low 52.0 - 69.0 mm [facility] Maximum clot firmness TEG (Bld) [Length] 20.9 mm 15.0 - 32.0 mm [facility] Maximum clot firmness.extrinsic coagulation system activated Rotational TEG (Bld) [Length] 62.3 mm 52.0 - 70.0 mm [facility] Comprehensive metabolic 2000 panelOrdered By: Ya Izaguirre on 10-27-2024 Albumin [Mass/Vol] 3.4 g/dL 3.2 - 5.2 g/dL [facility] ALP [Catalytic activity/Vol] 86 U/L 40 - 150 U/L [facility] ALT [Catalytic activity/Vol] 13 U/L 0-50 U/L [facility] Anion gap [Moles/Vol] 20 mmol/L 10 - 2 0 mmol/L [facility] AST [Catalytic activity/Vol] 12 U/L 0-50 U/L [facility] Bilirubin [Mass/Vol] 0.3 mg/dL 0.0 - 1 .3 mg/dL [facility] Calcium [Mass/Vol] 8.4 mg/dL 8.4 - 10. 2 mg/dL [facility] Chloride [Moles/Vol] 99 mmol/L 98 - 10 8 mmol/L [facility] Creatinine [Mass/Vol] 2.55 mg/dL High 0.80 - 1.30 mg/dL [facility] GFR/1.73 sq M.predicted CKD-EPI (S/P/Bld) [Vol rate/Area] 25 Low - PINF [facility] Comment on above: Estimated GFR was ca lculated using the 2020 CKD-EPI creatinine equation. Glucose [Mass/Vol] 564 mg/dL Critically high 65 - 99 mg/d L [facility] HCO3 [Moles/Vol] 15 mmol/L Low 21 - 32 mmol/L [facility] Potassium [Moles/Vol] 5.9 mmol/L High 3.5 - 5.1 mmol/L [facility] Protein [Mass/Vol] 5.8 g/dL Low 6.0 - 8.0 g/dL [facility] Sodium [Moles/Vol] 128 mmol/L Low 135 - 145 mmol/L [facility] Urea nitrogen [Mass/Vol] 93 mg/dL High 8 - 25 mg/d L [facility] Urea nitrogen/Creatinine [Mass ratio] 36.5 mg/mg High 10.0 - 20.0 [facility] has implemented the eGFR calculation approach that does not have a coefficient for race that conforms to the NKF-ASN Task Force Recommendations. [facility] Comprehensive metabolic 2000 panelOrdered By: Rosalia March on 10-27-2024 Albumin [Mass/Vol] 3.5 g/dL 3.2 - 5.2 g/dL [facility] ALP [Catalytic activity/Vol] 92 U/L 40 - 150 U/L [facility] ALT [Catalytic activity/Vol] 21 U/L 0-50 U/L [facility] Anion gap [Moles/Vol] 20 mmol/L 10 - 2 0 mmol/L [facility] AST [Catalytic activity/Vol] 14 U/L 0-50 U/L [facility] Bilirubin [Mass/Vol] 0.3 mg/dL 0.0 - 1 .3 mg/dL [facility] Calcium [Mass/Vol] 8.7 mg/dL 8.4 - 10. 2 mg/dL [facility] Chloride [Moles/Vol] 99 mmol/L 98 - 10 8 mmol/L [facility] Creatinine [Mass/Vol] 2.6 mg/dL High 0.80 - 1.30 mg/dL [facility] GFR/1.73 sq M.predicted CKD-EPI (S/P/Bld) [Vol rate/Area] 24 Low - PINF [facility] Comment on above: Estimated GFR was ca lculated using the 2020 CKD-EPI creatinine equation. Glucose [Mass/Vol] 467 mg/dL Critically high 65 - 99 mg/d L [facility] HCO3 [Moles/Vol] 17 mmol/L Low 21 - 32 mmol/L [facility] Interpretation and review of laboratory results Abnormal [facility] Potassium [Moles/Vol] 6.3 mmol/L Critically high 3.5 - 5.1 mmol/L [facility] Protein [Mass/Vol] 5.6 g/dL Low 6.0 - 8.0 g/dL [facility] Sodium [Moles/Vol] 130 mmol/L Low 135 - 145 mmol/L [facility] Urea nitrogen [Mass/Vol] 92 mg/dL High 8 - 25 mg/d L [facility] Urea nitrogen/Creatinine [Mass ratio] 35.4 mg/mg High 10.0 - 20.0 [facility] has implemented the eGFR calculation approach that does not have a coefficient for race that conforms to the NKF-ASN Task Force Recommendations. [facility] ECHOCARDIOGRAM COMPLETEon ECHOCARDIOGRAM COMPLETE Patient Info Name: ENOC ARMANDO Age: 78 years : 1945 Gender: Male Ht: 170 cm Wt: 66 kg BSA: 1.77 m2 HR: 63 bpm BP: 148 / 55 mmHg Heart Rhythm: Sinus Arrhythmia Technical Quality: Fair Exam Date: 10/27/2024 1:22 PM Patient Status: Outpatient Shine Worker: Jyoti Perez RDCS Exam Type: ECHOCARDIOGRAM COMPLETE Study Info Indications - Abnormal electrocardiogram [ECG] [EKG] Referring Physician: MARIE Arriaga; [id number] BMI: 22.71 kg/m2 Summary 1. Normal LV [...] Factors Hypertension: Yes Dyslipidemia: Yes Myocardial Infarction (MT): No Congestive Heart Failure (CHF): Hx CHF [...] mmHg MV VTI 56 cm MV Decel Walsh 850 cm/s2 MV PHT 90 ms MV [...] Average 7. (more content not included)... Normal [facility] Echo completeOrdered By: Fauzia Garay on 10-27-2024 Aortic valve area 3.57035 cm [facility] Work Phone: [phone] AV mean gradient 4 mmHg [facility] Work Phone: [phone] AV peak gradient 7.1824 mmHg [facility] Work Phone: [phone] EF 70.2889 % [facility] Work Phone: [phone] [facility] Work Phone: [phone] Echo completeon 10-27-2024 Patient Info Name: ENOC ARMANDO Age: 78 years : 1945 Gender: Male Ht: 170 cm Wt: 66 kg BSA: 1.77 m2 HR: 63 bpm BP: 148 / 55 mmHg Heart Rhythm: Sinus Arrhythmia Technical Quality: Fair Exam Date: 10/27/2024 1:22 PM Patient Status: Outpatient Shine Worker: Jyoti Perez RDCS Exam Type: ECHOCARDIOGRAM COMPLETE Study Info Indications - Abnormal electrocardiogram [ECG] [EKG] Referring Physician: MARIE Arriaga; [id number] BMI: 22.71 kg/m2 Summary 1. Normal LV [...] Factors Hypertension: Yes Dyslipidemia: Yes Myocardial Infarction (MT): No Congestive Heart Failure (CHF): Hx CHF [...] Date: 10/27/2024 1:22 PM Patient Status: Outpatient Shine Worker: Jyoti Perez RDCS Exam Type: ECHOCARDIOGRAM COMPLETE Study Info Indications - Abnormal electrocardiogram [ECG] [EKG] Referring Physician: [id number], POLLARD; [id number] BMI: 22.71 kg/m2 Summary 1. Normal LV [...] Factors Hypertension: Yes Dyslipidemia: Yes Myocardial Infarction (MT): No Congestive Heart Failure (CHF): Hx CHF [...] mmHg MV VTI 56 cm MV Decel Walsh 850 cm/s2 MV PHT 90 ms MV [...] Velocity 6.3 cm/ (more content not included)... [facility] Glucose (Bld) [Mass/Vol]on 12-28-2023 Glucose [Mass/Vol] mg/dL Critically high 65 - 99 mg/d L [facility] Interpretation and review of laboratory results Abnormal [facility] Critical result acted upon time of test. Test performed at bedside. [facility] Glucose [Mass/Vol] mg/dL Critically high 65 - 99 mg/d L [facility] Interpretation and review of laboratory results Abnormal [facility] Critical result acted upon time of test. Test performed at bedside. [facility] Glucose [Mass/Vol] 369 mg/dL High 65 - 99 mg/dL [facility] Interpretation and review of laboratory results Abnormal [facility] Glucose [Mass/Vol] 381 mg/dL High 65 - 99 mg/dL [facility] Interpretation and review of laboratory results Abnormal [facility] Glucose [Mass/Vol] 385 mg/dL High 65 - 99 mg/dL [facility] Interpretation and review of laboratory results Abnormal [facility] Glucose [Mass/Vol] 498 mg/dL Critically high 65 - 99 mg/d L [facility] Interpretation and review of laboratory results Abnormal [facility] Critical result acted upon time of test. Test performed at bedside. [facility] Glucose [Mass/Vol] 279 mg/dL High 65 - 99 mg/dL [facility] Interpretation and review of laboratory results Abnormal [facility] HEMOGLOBIN A1Con 10-27-2024 Glucose [Mass/Vol] 237 mg/dL High 74-114 [facility] Comment on above: Performed By: #### 4 8202 ####MH [address] [address] Moody Martinez M.D. [id number] HbA1c (Bld) [Mass fraction] 9.9 % High 4.2-5.6 [facility] Comment on above: Performed By: #### 4 8202 ####MH LAB [address] [place] [address] Moody Martinez M.D. [id number] Glucose [Mass/Vol] 232 mg/dL High 74-114 [facility] Comment on above: Performed By: #### 4 8202 ####[facility] LAB [address] [place] [address] Moody Martinez M.D. [id number] HbA1c (Bld) [Mass fraction] 9.7 % High 4.2-5.6 [facility] Comment on above: Performed By: #### 4 8202 #### LAB [address] [place] [address] Moody Martinez M.D. [id number] HbA1c (Bld) [Mass fraction]o n 10-27-2024 Average glucose Estimated from glycated hemoglobin (Bld) [Mass/Vol] 232 mg/dL High 74 - 114 mg/dL [facility] Interpretation and review of laboratory results Abnormal [facility] Hemoglobin A1con 10-27-2024 HbA1c (Bld) [Mass fraction] 9.7 % High 4.2 - 5.6 % [facility] INR Coag (PPP) [Relative concha e]on 10-27-2024 Interpretation and review of laboratory results Normal [facility] PT Coag (PPP) [Time] 14.3 s [facility] During the induction phase of oral anticoagulation, the INR may not reflect the anticoagulation status of the patient. Therapeutic ranges for INR's are: Most clinical situations: INR 2.0-3.0 Mechanical Prosthetic Valve: INR 2.5-3.5 Critical: INR >5.0 [facility] LACTIC ACID, PLASMAon 2023 LACTIC ACID, PLASMA 1.6 mmol/L Normal 0.6-2.0 [facility] Comment on above: Performed By: #### 4 6932 #### MH LAB [address] [place] [address] Moody Martinez M.D. [id number] LIPASEon 10-27-2024 Lipase [Catalytic activity/Vol] 56 U/L Normal 15-65 [facility] Comment on above: Performed By: #### 4 6086 #### LAB [address] [place] [address] Moody Martinez M.D. [id number] Lactate [Moles/Vol]on 2023 Interpretation and review of laboratory results Normal [facility] Lactic Acid, Plasmaon 2023 Lactate [Moles/Vol] 1.6 mmol/L 0.6 - 2. 0 mmol/L [facility] Lipaseon 10-27-2024 Lipase [Catalytic activity/Vol] 56 U/L 15 - 65 U/L [facility] MAGNESIUM LEVELon 10-27-2024 Magnesium [Mass/Vol] 2.6 mg/dL High 1.6-2.4 [facility] Comment on above: Performed By: #### 4 6109 ####[facility] LAB [address] [place] [address] Moody Martinez M.D. [id number] Magnesium [Mass/Vol] 2.5 mg/dL High 1.6-2.4 [facility] Comment on above: Performed By: #### 4 6109 #### LAB [address] [place] [address] Moody Martinez M.D. [id number] Magnesium Levelon 10-27-2024 Magnesium [Mass/Vol] 2.5 mg/dL High 1.6 - 2 .4 mg/dL [facility] No Panel InformationOrdered By: Ya Izaguirre on 10-27-2024 Interpretation and review of laboratory results Abnormal [facility] No Panel Informationon 10-27 Interpretation and review of laboratory results Normal [facility] [place] [facility] PHOSPHORUSon 10-27-2024 Phosphate [Mass/Vol] 4.4 mg/dL High 2.3-3.7 [facility] Comment on above: Performed By: #### 4 6299 #### LAB [address] [place] [address] Moody Martinez M.D. [id number] Phosphate [Mass/Vol] 5.2 mg/dL High 2.3-3.7 [facility] Comment on above: Performed By: #### 4 4014 #### MH LAB [address] [place] [address] Moody Martinez M.D. [id number] POC ARTERIAL BLOOD GAS PANEL -AYUSH Lyons 10-27-2024 [id number] 19.6 mm Hg Normal [facility] Comment on above: Performed By: #### 4 8716 ####[facility] LAB [address] [place] [address] Moody Martinez M.D. [id number] BASE EXCESS, ARTERIAL -7.5 Low -2.0-2.0 [facility] Comment on above: Performed By: #### 4 8716 ####[facility] LAB [address] [place] [address] Moody Martinez M.D. [id number] FIO2 21 Normal [facility] Comment on above: Performed By: #### 4 [id number] #### LAB [address] [place] [address] Moody Martinez M.D. [id number] HCO3 (Bld) [Moles/Vol] 17.5 mmol/L Low 22.0-26.0 [facility] Comment on above: Performed By: #### 4 [id number] ####[facility] LAB [address] [place] [address] Moody Martinez M.D. [id number] Hematocrit (Bld) [Volume fraction] 30.0 % Low 41.0-53.0 [facility] Comment on above: Performed By: #### 4 [id number] ####[facility] LAB [address] [place] [address] Moody Martinez M.D. [id number] Hemoglobin (Bld) [Mass/Vol] 9.8 g/dL Low 13.5-17.5 [facility] Comment on above: Performed By: #### 4 [id number] ####[facility] LAB [address] [place] [address] Moody Martinez M.D. [id number] Oxygen saturation in Blood 97.3 % Normal 92.0-99.0 [facility] Comment on above: Performed By: #### 4 [id number] #### LAB [address] [place] [address] Moody Martinez M.D. [id number] PCO2 ARTERIAL 32.9 mm Hg Low 35.0-45.0 [facility] Comment on above: Performed By: #### 4 [id number] #### LAB [address] [place] [address] Moody Martinez M.D. [id number] PH ARTERIAL 7.33 Low 7.35-7.45 [facility] Comment on above: Performed By: #### 4 [id number] #### LAB [address] [place] [address] Moody Martinez M.D. [id number] PO2 ARTERIAL 85 mm Hg Normal 75-85 [facility] Comment on above: Performed By: #### 4 [id number] #### LAB [address] [place] [address] Moody Martinez M.D. [id number] SPECIMEN SOURCE RADIANCE Radial, left Normal [facility] Comment on above: Performed By: #### 4 [id number] #### LAB [address] [place] [address] Moody Martniez M.D. [id number] POC Arterial Blood Gas Panel -[facility] 10-27-2024 Alveolar-arterial oxygen Partial pressure difference 19.6 mm Hg [facility] Base excess Calc (Bld) [Moles/Vol] -7.5000 mmol/L Low -2.0 - 2.0 [facility] CO2 (Bld) [Partial pressure] 32.9 mm[Hg] Low [facility] Hematocrit (BldA) [Volume fraction] 30 % Low 41.0 - 53.0 % [facility] Inhaled oxygen concentration 21 % [facility] Interpretation and review of laboratory results Abnormal [facility] Oxygen (Bld) [Partial pressure] 85 mm[Hg] [facility] pH (Bld) 7.33 [pH] Low 7.35 - 7.45 [facility] Specimen source Nom (Unsp spec) Radial, left [facility] POC GLUCOSE - [facility] 024 Glucose [Mass/Vol] 443 mg/dL Off scale high 65-99 [facility] Comment on above: Order Comment: Criti christian result acted upon time of test. Test performed at bedside. Performed By: #### 4 6987 ####[facility] LAB [address] [place] [address] Moody Martinez M.D. [id number] POC GLUCOSE > Off scale [address] Comment on above: Order Comment: Criti christian result acted upon time of test. Test performed at bedside. Performed By: #### 4 6989 ####[facility] LAB [address] [place] [address] Moody Martinez M.D. [id number] POC GLUCOSE > Off scale [address] Comment on above: Order Comment: Criti christian result acted upon time of test. Test performed at bedside. Performed By: #### 4 6951 #### LAB [address] [place] [address] Moody Martinez M.D. [id number] POC GLUCOSE > Off scale [address] Comment on above: Order Comment: Criti christian result acted upon time of test. Test performed at bedside. Performed By: #### 4 6946 ####[facility] LAB [address] [place] [address] Moody Martinez M.D. [id number] Glucose [Mass/Vol] 369 mg/dL [address] Comment on above: Performed By: #### 4 6989 #### LAB [address] [place] [address] Moody Martinez M.D. [id number] Glucose [Mass/Vol] 381 mg/dL [address] Comment on above: Performed By: #### 4 0458 ####[facility] LAB [address] [place] [address] Moody Martinez M.D. [id number] Glucose [Mass/Vol] 385 mg/dL [address] Comment on above: Performed By: #### 4 8857 #### LAB [address] [place] [address] Moody Martinez M.D. [id number] Glucose [Mass/Vol] 498 mg/dL Off scale high 65-99 [facility] Comment on above: Order Comment: Criti christian result acted upon time of test. Test performed at bedside. Performed By: #### 4 6932 #### LAB [address] [place] [address] Moody Martinez M.D. [id number] Glucose [Mass/Vol] 279 mg/dL High 65-99 [facility] Comment on above: Performed By: #### L [id number] #### [facility] [address] [place] [address] Moody Martinez M.D. [id number] POTASSIUM LEVELon 10-27-2024 Potassium [Moles/Vol] 3.4 mmol/L Low 3.5-5.1 [facility] Comment on above: Performed By: #### 4 6351 ####[facility] [address] [place] [address] Moody Martinez M.D. [id number] PREALBUMINon 10-27-2024 Prealbumin [Mass/Vol] 15.9 mg/dL Low 20.0-40.0 [facility] Comment on above: Performed By: #### 4 4014 #### LAB [address] [place] [address] Moody Martinez M.D. [id number] PT/INRon 10-27-2024 INR Coag (PPP) [Relative time] 1.1 {INR} 0.8 - 1.1 [facility] INR Coag (PPP) [Relative time] 1.1 {INR} Normal 0.8-1.1 [facility] Comment on above: Order Comment: Janet good the induction phase of oral anticoagulation, the INR may not reflect the anticoagulation status of the patient. Therapeutic ranges for INR's are:Most clinical situations: INR 2.0-3.0Mechanical Prosthetic Valve: INR 2.5-3.5Critical: INR >5.0 Performed By: #### 4 6906 #### LAB [address] [place] [address] Moody Martinez M.D. [id number] PT Coag (PPP) [Time] 14.3 s Normal 11.8-14.3 [facility] Comment on above: Order Comment: Janet good the induction phase of oral anticoagulation, the INR may not reflect the anticoagulation status of the patient. Therapeutic ranges for INR's are:Most clinical situations: INR 2.0-3.0Mechanical Prosthetic Valve: INR 2.5-3.5Critical: INR >5.0 Performed By: #### 4 6932 #### LAB [address] [place], [place] [address] Moody Martinez M.D. [id number] Phosphoruson 10-27-2024 Phosphate [Mass/Vol] 5.2 mg/dL High 2.3 - 3 .7 mg/dL [facility] Potassium Levelon 10-27-2024 Potassium [Moles/Vol] 3.4 mmol/L Low 3.5 - 5.1 mmol/L [facility] Potassium [Moles/Vol]on 10-02 Interpretation and review of laboratory results Abnormal [facility] Prealbuminon 10-27-2024 Prealbumin [Mass/Vol] 15.9 mg/dL Low 20.0 - 40.0 mg/dL [facility] Prealbumin [Mass/Vol]on 10-02 Interpretation and review of laboratory results Abnormal [facility] Segmental Doppler Lower Extr emity Arterialon 10-27-2024 Patient Info Name: ENOC ARMANDO Age: 78 years : 1945 Gender: Male Exam Date: 10/27/2024 9:50 AM Patient Status: Outpatient Schedule Planning Manager: Ya Jacob Referring Physician: ZOILA POLLARD; Indications I73.9 - Peripheral vascular disease, unspecified Procedure Description [id number] Limited bilateral noninvasive physiologic studies of upper [...] Date: 10/27/2024 9:50 AM Patient Status: Outpatient Schedule Planning Manager: Ya Jacob Referring Physician: ZOILA POLLARD; Indications I73.9 - Peripheral vascular disease, unspecified Procedure Description 80675 Limited bilateral noninvasive physiologic studies of upper [...] JO-ANN Nguyen DO on 10/27/2024 01:14 PM [facility] T4, Christina 10-27-2024 Free T4 [Mass/Vol] 1.3 ng/dL Normal 0.7-1.7 [facility] Comment on above: Performed By: #### 4 6567 #### LAB [address] [address] Moody Martinez M.D. [id number] T4, Freeon 10-27-2024 Free T4 [Mass/Vol] 1.3 ng/dL 0.7 - 1.7 ng/dL [facility] TEG PLATELET MAPPING ([facility])on 10-27-2024 (AA-%AGGREGATION) AA PERCENT AGGREGATION 12.1 % Low 89.0-100.0 [facility] Comment on above: Performed By: #### L [id number] ####[facility] LAB [address] [address] Moody Martinez M.D. [id number] (AA-%INHIBITION) AA PERCENT INHIBITION 87.9 % High 0.0-11.0 [facility] Comment on above: Performed By: #### L [id number] ####[facility] [address] [address] Moody Martinez M.D. [id number] (AA-MA) AA MAXIMUM AMPLITUDE 14.7 mm Low 51.0-71.0 [facility] Comment on above: Performed By: #### L [id number] ####[facility] [address] [address] Moody Martinez M.D. [id number] (ACTF-MA) ACTIVATOR F MAXIMUM AMPLITUDE 7.8 mm Normal 2.0-19.0 [facility] Comment on above: Performed By: #### L [id number] ####[facility] [address] [address] Moody Martinez M.D. [id number] (ADP-%AGGREGATION) ADP PERCENT AGGREGATION 61.2 % Low 83.0-100.0 [facility] Comment on above: Performed By: #### L [id number] ####[facility] [address] [address] Moody Martinez M.D. [id number] (ADP-%INHIBITION) ADP PERCENT INHIBITION 38.8 % High 0.0-17.0 [facility] Comment on above: Performed By: #### L [id number] #### LAB [address] [address] Moody Martinez M.D. [id number] (ADP-MA) ADP MAXIMUM AMPLITUDE 42.7 mm Low 45.0-69.0 [facility] Comment on above: Performed By: #### L [id number] ####[facility] [address] [address] Moody Martinez M.D. [id number] (HKH-MA) KAOLIN WITH HEPARINASE MAXIMUM AMPLITUDE 64.8 mm Normal 53.0-68.0 [facility] Comment on above: Performed By: #### L [id number] #### LAB [address] [address] Moody Martinez M.D. [id number] TEG Platelet Mapping (Cardia c)on 10-27-2024 (AA-%Aggregation) AA Percent Aggregation 12.1 % Low 89.0 - 100.0 % [facility] (AA-%Inhibition) AA Percent Inhibition 87.9 % High 0.0 - 11.0 % [facility] (ADP-% Aggregation) ADP Percent Aggregation 61.2 % Low 83.0 - 100.0 % [facility] (ADP-%Inhibition) ADP PERCENT INHIBITION 38.8 % High 0.0 - 17.0 % [facility] Interpretation and review of laboratory results [facility] Maximum amplitude AA induced Resonance TEG (Bld) [Length] 14.7 mm Low 51.0 - 71.0 mm [facility] Maximum amplitude activator F induced Resonance TEG (Bld) [Length] 7.8 mm 2.0 - 19.0 mm [facility] Maximum amplitude ADP induced Resonance TEG (Bld) [Length] 42.7 mm Low 45.0 - 69.0 mm [facility] Maximum amplitude kaolin induced after addition of heparinase Resonance TEG (Bld) [Length] 64.8 mm 53.0 - 68.0 mm [facility] TSHon 10-27-2024 TSH Qn 0.48 m[IU]/L Normal 0.27-4.20 [facility] Comment on above: Performed By: #### 4 6932 #### LAB [address] [address] Moody Martinez M.D. 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 [id number] URINE AEROBIC CULTUREon 10-02 URINE AEROBIC CULTURE URINE CULTURE No Growth (<1,000 CFU/mL) Normal [facility] Comment on above: Order Comment: If PO SITIVE, send for sensitivities per cardiac surgeon Performed By: #### 4 4053 ####[facility] [address] [place] [address] Jose Cisse M.D. [id number] US DOPPLER CAROTIDon 024 US DOPPLER CAROTID Patient Info Name: ENOC ARMANDO Age: 78 years : 1945 Gender: Male Exam Date: 10/27/2024 10:32 AM Patient Status: Outpatient Schedule Planning Manager: Lori Fagan RDMS (), RVS Referring Physician: MARIE Arriaga; Indications Z01.810 - Encounter for preprocedural cardiovascular examination I65.23 - Occlusion and stenosis of bilateral carotid arteries Procedure Description 44462 Duplex examination using B-mode, color and spectral [...] Results c (more content not included)... Normal [facility] Comment on above: Order Comment: Dr. Sudha Parker to read US DOPPLER SEGMENTAL ARTERIA L LEGS BILATERALon 10-27-2024 US DOPPLER SEGMENTAL ARTERIAL LEGS BILATERAL Patient Info Name: ENOC ARMANDO Age: 78 years : 1945 Gender: Male Exam Date: 10/27/2024 9:50 AM Patient Status: Outpatient Schedule Planning Manager: Ya Jacob Referring Physician: ZOILA POLLARD; Indications I73.9 - Peripheral vascular disease, unspecified Procedure Description 85552 Limited bilateral noninvasive physiologic studies of upper [...] JO-ANN Nguyen DO on 10/27/2024 01:14 PM [facility] RADIAL ARTERY MAPPING KARIN [facility] 10-27-2024 US RADIAL ARTERY MAPPING BILATERAL Patient Info Name: ENOC ARMANDO Age: 78 years : 1945 Gender: Male Exam Date: 10/27/2024 11:23 AM Patient Status: Outpatient Schedule Planning Manager: Lori Fagan RDMS (AB), RVS Referring Physician: MARIE Arriaga; Indications - possible radial artery harvest Z01.810 - Encounter for preprocedural cardiovascular examination Procedure Description 65487 Duplex scan of upper extremity arteries or [...] Kristy Parker MD on 10/27/2024 11:50 AM [facility] Radial Artery Mapping Karin bone 10-27-2024 Patient Info Name: ENOC ARMANDO Age: 78 years : 1945 Gender: Male Exam Date: 10/27/2024 11:23 AM Patient Status: Outpatient Schedule Planning Manager: Lori Fagan RDMS (AB), RVS Referring Physician: MARIE Arriaga; Indications - possible radial artery harvest Z01.810 - Encounter for preprocedural cardiovascular examination Procedure Description 96882 Duplex scan of upper extremity arteries or [...] Kristy Parker MD on 10/27/2024 11:50 AM [employer] CV Kristy Parker MD - 10/27/2024 Patient Info Name: ENOC ARMANDO Age: 78 years : 1945 Gender: Male Exam Date: 10/27/2024 11:23 AM Patient Status: Outpatient Schedule Planning Manager: Lori Fagan, MARYJANE (AB), RVS Referring Physician: MARIE Arriaga; Indications - possible radial artery harvest Z01.810 - Encounter for preprocedural cardiovascular examination Procedure Description 10316 Duplex scan of upper extremity arteries or [...] Kristy Parker MD on 10/27/2024 11:50 AM [facility] SAPHENOUS VEIN MAPon - SAPHENOUS VEIN MAP Patient Info Name: ENOC ARMANDO Age: 78 years : 1945 Gender: Male Exam Date: 10/27/2024 11:13 AM Patient Status: Outpatient Schedule Planning Manager: Lori Fagan RDMS (AB), RVS Referring Physician: MARIE Arriaga; Indications - GSV harvest Z01.810 - Encounter for preprocedural cardiovascular examination Procedure Description 82177 Duplex examination using B-mode, color and spectral [...] Parker MD on 10/27/2024 11:57 AM Normal [facility] Ultrasound Saphenous vein ma ppingon 10-27-2024 Patient Info Name: ENOC ARMANDO Age: 78 years : 1945 Gender: Male Exam Date: 10/27/2024 11:13 AM Patient Status: Outpatient Schedule Planning Manager: Lori Fagan RDMS (AB), RVS Referring Physician: MARIE Arriaga; Indications - GSV harvest Z01.810 - Encounter for preprocedural cardiovascular examination Procedure Description 22153 Duplex examination using B-mode, color and spectral [...] Date: 10/27/2024 11:13 AM Patient Status: Outpatient Schedule Planning Manager: Lori Fagan RDMS (AB), RVS Referring Physician: MARIE Arriaga; Indications - GSV harvest Z01.810 - Encounter for preprocedural cardiovascular examination Procedure Description 30361 Duplex examination using B-mode, color and spectral [...] Kristy Parker MD on 10/27/2024 11:57 AM [facility] Ultrasound doppler carotidon 10-27-2024 Patient Info Name: ENOC ARMANDO Age: 78 years : 1945 Gender: Male Exam Date: 10/27/2024 10:32 AM Patient Status: Outpatient Schedule Planning Manager: Lori Fagan RDMS (AB), RVS Referring Physician: MARIE Arriaga; Indications Z01.810 - Encounter for preprocedural cardiovascular examination I65.23 - Occlusion and stenosis of bilateral carotid arteries Procedure Description 74545 Duplex examination using B-mode, color and spectral [...] Date: 10/27/2024 10:32 AM Patient Status: Outpatient Schedule Planning Manager: Lori Fagan RDMS (AB), RVS Referring Physician: MARIE Arriaga; Indications Z01.810 - Encounter for preprocedural cardiovascular examination I65.23 - Occlusion and stenosis of bilateral carotid arteries Procedure Description 92595 Duplex examination using B-mode, color and spectral [...] Patient has a (more content not included)... [facility] Urinalysison 10-27-2024 Bacteria Auto Ql (U) Rare Abnormal None Se en /hpf [facility] Bilirubin Ql (U) Negative Negative [facility] Clarity Refractometry automated (U) Clear Clear [facility] Color (U) Colorless Colorless, Yellow [facility] Epithelial cells.squamous Auto (Urine sed) [#/Area] [facility] alth Glucose Auto test strip (U) [Mass/Vol] 150 mg/dL Abnormal Negative, >=1000 [facility] Hemoglobin Auto test strip Ql (U) Negative Negative [facility] Hyaline casts Auto (Urine sed) [#/Area] 0-2 [facility] Interpretation and review of laboratory results Abnormal [facility] Ketones (U) [Mass/Vol] Negative Negat frank mg/dL [facility] Leukocyte esterase Auto test strip Ql (U) Negative Negative [facility] Mucus Auto (Urine sed) [#/Area] Rare None Seen, Rare /lpf [facility] Nitrite Auto test strip Ql (U) Negative Negative [facility] pH (U) 5 [pH] 5.0 - 7.0 [facility] Protein (U) [Mass/Vol] Negative Negat frank mg/dL [facility] RBC Auto (Urine sed) [#/Area] 1 [facility] Specific gravity (U) [Rel density] 1.017 1.005 - 1.025 [facility] Urobilinogen (U) [Mass/Vol] mg/dL NINF - 2.0 mg/dL [facility] WBC Auto (Urine sed) [#/Area] 1 [facility] Microscopic examination is performed on all urinalysis samples and only positive findings are reported. The test for blood on the chemical analytic portion of urinalysis may also be positive due to hemoglobinuria and myoglobinuria and if red blood cells are present they are quantified by microscopic examination. [facility] XR CHEST AP/PA AND LATon XR [...] WedOct 27, 2024 3:01:09 PM EST Normal [facility] Comment on above: Order Comment: Injur y/Trauma or Illness?:Illness/OtherHow long have you had these symptoms (acute/chronic)?:AcuteReason for exam?:pre opHistory of cancer?:.Surgeries, chemotherapy, or radiation?:cardiac catheterizationType of Exam?:InitialAdditional signs and symptoms?:. XR Chest PA and Lateral and AP lateral-decubituson 10-27-2024 Mild bilateral lower lung atelectasis. JAR/trn Workstation ID: [id number] [employer] RIS EXAMINATION: XR CHEST AP/PA AND [...] atelectasis. No pneumothorax or sizable pleural effusion. [employer] [facility] Kahlil Varghese, DO - 10/27/2024 EXAMINATION: XR [...] lower lung atelectasis. JAR/trn Workstation ID: [id number] [facility] Radiology Study observation (narrative) [facility] th XR Chest PA and Lateral and AP lateral-decubitusOrdered By: Kahlil Varghese on 10-27-2024 [facility] Work Phone: aPTT Coag (Bld) [Time]on Interpretation and review of laboratory results Abnormal [facility] Therapeutic range for APTT's is 68 - 104 seconds [facility] BASIC METABOLIC PANELon 10-01 Calcium [Mass/Vol] 8.9 mg/dL Normal 8.6-10.3 [facility] Comment on above: Order Comment: FASTI NG:UNKNOWN FASTING: UNKNOWN Performed By: #### 6 399, [id number] #### [facility] [address], [address] [place] [address] Reed Worker: Jadon Velez MD Chloride [Moles/Vol] 106 mmol/L Normal 98-110 [facility] Comment on above: Order Comment: FASTI NG:UNKNOWN FASTING: UNKNOWN Performed By: #### 6 399, 88396 #### [facility] [address], [address] [place] [address] Reed Worker: Jadon Velez MD CO2 [Moles/Vol] 22 mmol/L Normal 20-32 [facility] Comment on above: Order Comment: FASTI NG:UNKNOWN FASTING: UNKNOWN Performed By: #### 6 399, 83867 #### [facility] [address], [address] [place] [address] Reed Worker: Jadon Velez MD Creatinine [Mass/Vol] 2.36 mg/dL High 0.70-1.22 [facility] Comment on above: Order Comment: FASTI NG:UNKNOWN FASTING: UNKNOWN Performed By: #### 6 399, 96816 #### [facility] [place] [address] Reed Worker: Jadon Velez MD GFR/1.73 sq M.predicted among non-blacks MDRD (S/P/Bld) [Vol rate/Area] 27 mL/min/{1.73_m2} Low > OR = 60 [facility] Comment on above: Order Comment: FASTI NG:UNKNOWN FASTING: UNKNOWN Performed By: #### 6 399, 93097 #### [facility] [place] [address] Reed Worker: Jadon Velez MD Glucose [Mass/Vol] 316 mg/dL High 65-99 [facility] Comment on above: Order Comment: FASTI NG:UNKNOWN FASTING: UNKNOWN Result Comment: Fasting reference interval For someone without known diabetes, a glucose value >125 mg/dL indicates that they may have diabetes and this should be confirmed with a follow-up test. Performed By: #### 6 399, 59594 #### [facility] [place] [address] Reed Worker: Jadon Velez MD Potassium [Moles/Vol] 5.6 mmol/L High 3.5-5.3 [facility] [employer] Comment on above: Order Comment: FASTI NG:UNKNOWN FASTING: UNKNOWN Performed By: #### 6 399, 53224 #### [facility] [address], [address] [place] [address] Reed Worker: Jadon Velez MD Sodium [Moles/Vol] 137 mmol/L Normal 135-146 [facility] Comment on above: Order Comment: FASTI NG:UNKNOWN FASTING: UNKNOWN Performed By: #### 6 399, 92283 #### [facility] [address], [address] [place] [address] Reed Worker: Jadon Velez MD Urea nitrogen [Mass/Vol] 66 mg/dL High 7-25 [facility] Comment on above: Order Comment: FASTI NG:UNKNOWN FASTING: UNKNOWN Performed By: #### 6 399, 09304 #### [facility] [address], [address] [place] [address] Reed Worker: Jadon Velez MD Urea nitrogen/Creatinine [Mass ratio] 28 mg/mg High 6-22 [facility] Comment on above: Order Comment: FASTI NG:UNKNOWN FASTING: UNKNOWN Performed By: #### 6 399, 00206 #### [facility] of [address], [address] [place] [address] Reed Worker: Jadon Velez MD CBC (INCLUDES DIFF/PLT)on Basophils (Bld) [#/Vol] 0.213 10*3/uL High 0-200 [facility] Comment on above: Performed By: #### 6 399, 20604 #### [facility] of [address], [address] [place] [address] Reed Worker: Jadon Velez MD Basophils/100 WBC (Bld) 2.6 % Normal Q [facility] Comment on above: Performed By: #### 6 399, 20405 #### [facility] of [address], [address] [place] [address] Reed Worker: Jadon Velez MD Eosinophils (Bld) [#/Vol] 0.5 10*3/uL Normal 15-500 [facility] Comment on above: Performed By: #### 6 399, 20143 #### [facility] of [address], [address] [place] [address] Reed Worker: Jadon Velez MD Eosinophils/100 WBC (Bld) 6.1 % Normal [facility] Comment on above: Performed By: #### 6 399, 59662 #### [facility] of [place] [address] Reed Worker: Jadon Velez MD Erythrocyte distribution width (RBC) [Ratio] 12.9 % Normal 11.0-15.0 [facility] Comment on above: Performed By: #### 6 399, 92313 #### [facility] of [place] [address] Reed Worker: Jaodn Velez MD Hematocrit (Bld) [Volume fraction] 33.8 % Low 38.5-50.0 [facility] Comment on above: Performed By: #### 6 399, 81755 #### [facility] of [address], [address] [place] [address] Reed Worker: Jadon Velez MD Hemoglobin (Bld) [Mass/Vol] 10.9 g/dL Low 13.2-17.1 [facility] Comment on above: Performed By: #### 6 399, [id number] #### [facility] of [address], [address] [place] [address] Reed Worker: Jadon Velez MD Lymphocytes (Bld) [#/Vol] 2.28 10*3/uL Normal 850-3900 [facility] Comment on above: Performed By: #### 6 399, 24083 #### [facility] of [address], [address] [place] [address] Reed Worker: Jadon Velez MD Lymphocytes/100 WBC (Bld) 27.8 % Normal [facility] Comment on above: Performed By: #### 6 399, 43907 #### [facility] [place] [address] Reed Worker: Jadon Velez MD MCH (RBC) [Entitic mass] 30.9 pg Normal 27.0-33.0 [facility] Comment on above: Performed By: #### 6 399, 44134 #### [facility] of [place] [address] Reed Worker: Jadon Velez MD MCHC (RBC) [Mass/Vol] 32.2 [...] clinical condition. Performed By: #### 6 399, 19872 #### [facility] of [place] [address] Reed Worker: Jadon Velez MD MCV (RBC) [Entitic vol] 95.8 fL Normal 80.0-100.0 [facility] Comment on above: Performed By: #### 6 399, 38250 #### [facility] of [address], [address] [place] [address] Reed Worker: Jadon Velez MD Monocytes (Bld) [#/Vol] 0.631 10*3/uL Normal 200-950 [facility] Comment on above: Performed By: #### 6 399, 86460 #### [facility] [place] [address] Reed Worker: Jadon Velez MD Monocytes/100 WBC (Bld) 7.7 % Normal [facility] Comment on above: Performed By: #### 6 399, 30350 #### [facility] [place] [address] Reed Worker: Jadon Velez MD Neutrophils (Bld) [#/Vol] 4.576 10*3/uL Normal 1500-78 00 [facility] Comment on above: Performed By: #### 6 399, 32201 #### [facility] [place] [address] Reed Worker: Jadon Velez MD Neutrophils/100 WBC (Bld) 55.8 % Normal [facility] Comment on above: Performed By: #### 6 399, 57320 #### [facility] [place] [address] Reed Worker: Jadon Velez MD Platelet mean volume (Bld) [Entitic vol] 11.5 fL Normal 7.5-12.5 [facility] Comment on above: Performed By: #### 6 399, 22194 #### [facility] [place] [address] Reed Worker: Jadon Velez MD Platelets (Bld) [#/Vol] 289 10*3/uL Normal 140-400 [facility] Comment on above: Performed By: #### 6 399, 64254 #### [facility] [place] [address] Reed Worker: Jadon Vleez MD RBC (Bld) [#/Vol] 3.53 10*6/uL Low 4.20-5.80 [facility] Comment on above: Performed By: #### 6 399, 08059 #### [facility] [address], [address] [place] [address] Reed Worker: Jadon Velez MD WBC (Bld) [#/Vol] 8.2 10*3/uL Normal 3.8-10.8 [facility] Comment on above: Performed By: #### 6 399, 36189 #### [facility] [address], [address] [place] [address] Reed Worker: Jadon Velez MD Lipid Profileon 09-21-2024 Cholesterol [Mass/Vol] 148 mg/dL Normal 200 [place] Comment on above: Result Comment: <200 mg/dL Desirable 200-240 mg/dL Borderline >240 mg/dL High Risk Performed By: #### L 500.4100 ####[facility] [address] [place], [address] Cholesterol in HDL [Mass/Vol] 49 mg/dL Normal [facility] Comment on above: Result Comment: The drugs N-Acetylcysteine and Metamizole may falselydepress this assay. Reference Range HDL <40 mg/dL Low HDL Cholesterol HDL >or= 60 mg/dL High HDL Cholesterol Performed By: #### L 500.4100 ####[facility] [address] [place], [address] Cholesterol in LDL [Mass/Vol] 87 mg/dL Normal 0-130 [facility] Comment on above: Performed By: #### L 500.4100 ####[facility] [address] [place], [address] Cholesterol in VLDL [Mass/Vol] 12 mg/dL Normal 5-40 [facility] Comment on above: Performed By: #### L 500.4100 ####[facility] [address] [place], [address] Triglyceride [Mass/Vol] 58 mg/dL Normal [facility] Comment on above: Result Comment: The drugs N-Acetylcysteine and Metamizole may falselydepress this assay.Serum Triglycerides Reference Interval Normal <150 mg/dL Borderline high 150 - 199 mg/dL High 200 - 499 mg/dL Very High > or = 500 mg/dL Performed By: #### L 500.4100 ####[facility] [address] [place], [address] Basic Metabolic Profile (BMP )on 09-15-2024 BUN Normal 7-18 [facility] Comment on above: Result Comment: Canc elled via OM: Order cancelled - Patient discharged Performed By: #### L 500.2500, L100.0100 ####[facility] [address] [place], [address] BUN/CRE Normal 10-20 [facility] Comment on above: Result Comment: Canc elled via OM: Order cancelled - Patient discharged Performed By: #### L 500.2500, L100.0100 ####[facility] [address] [place], [address] CA,Total Normal 8.5-10.1 [facility] Comment on above: Result Comment: Canc elled via OM: Order cancelled - Patient discharged Performed By: #### L 500.2500, L100.0100 ####[facility] [address] [place], [address] CL Normal 98-107 [facility] Comment on above: Result Comment: Canc elled via OM: Order cancelled - Patient discharged Performed By: #### L 500.2500, L100.0100 ####[facility] [address] [place], [address] CO2 Normal 21.0-32.0 [facility] Comment on above: Result Comment: Canc elled via OM: Order cancelled - Patient discharged Performed By: #### L 500.2500, L100.0100 ####[facility] [address] [place], [address] CREAT,SERUM Normal 0.70-1.30 [facility] Comment on above: Result Comment: Canc elled via OM: Order cancelled - Patient discharged Performed By: #### L 500.2500, L100.0100 ####[facility] [address] [place], [address] EST GFR Normal >60 [facility] Comment on above: Result Comment: Canc elled via OM: Order cancelled - Patient discharged Performed By: #### L 500.2500, L100.0100 ####[facility] [address] [place], [address] EST GFR - AA Normal >60 [facility] Comment on above: Result Comment: Canc elled via OM: Order cancelled - Patient discharged Performed By: #### L 500.2500, L100.0100 ####[facility] [address] [place], [address] GAP Normal 5-15 [facility] Comment on above: Result Comment: Canc elled via OM: Order cancelled - Patient discharged Performed By: #### L 500.2500, L100.0100 ####[facility] [address] [place], [address] GLU Normal 74-106 [facility] Comment on above: Result Comment: Canc elled via OM: Order cancelled - Patient discharged Performed By: #### L 500.2500, L100.0100 ####[facility] [address] [place], [address] Potassium Normal 3.5-5.1 [facility] Comment on above: Result Comment: Canc elled via OM: Order cancelled - Patient discharged Performed By: #### L 500.2500, L100.0100 ####[facility] [address] [place], [address] Basic Metabolic Profile (BMP) Normal 136-145 [facility] Comment on above: Result Comment: Canc elled via OM: Order cancelled - Patient discharged Performed By: #### L 500.2500, L100.0100 ####[facility] [address] [place], [address] CBC W/Diff, Automatedon 11-1 Absolute Neut Normal 2.0-7.7 [facility] Comment on above: Result Comment: Canc elled via OM: Order cancelled - Patient discharged Performed By: #### L 500.2500, L100.0100 ####[facility] [address] [place], [address] HCT Normal 40-54 [facility] Comment on above: Result Comment: Canc elled via OM: Order cancelled - Patient discharged Performed By: #### L 500.2500, L100.0100 ####[facility] [address] [place], [address] HGB Normal 13.0-16.5 [facility] Comment on above: Result Comment: Canc elled via OM: Order cancelled - Patient discharged Performed By: #### L 500.2500, L100.0100 ####[facility] [address] [place], [address] MCH Normal 27.0-32.0 [facility] Comment on above: Result Comment: Canc elled via OM: Order cancelled - Patient discharged Performed By: #### L 500.2500, L100.0100 ####[facility] [address] [place], [address] MCHC Normal 32-36 [facility] Comment on above: Result Comment: Canc elled via OM: Order cancelled - Patient discharged Performed By: #### L 500.2500, L100.0100 ####[facility] [address] [place], [address] MCV Normal 80-94 [facility] Comment on above: Result Comment: Canc elled via OM: Order cancelled - Patient discharged Performed By: #### L 500.2500, L100.0100 ####[facility] [address] [place], [address] NEUT% Normal 47-70 [facility] Comment on above: Result Comment: Canc elled via OM: Order cancelled - Patient discharged Performed By: #### L 500.2500, L100.0100 ####[facility] [address] [place], [address] PLT Normal 150-450 [facility] Comment on above: Result Comment: Canc elled via OM: Order cancelled - Patient discharged Performed By: #### L 500.2500, L100.0100 ####[facility] [address] [place], [address] RBC Normal 4.6-6.2 [facility] Comment on above: Result Comment: Canc elled via OM: Order cancelled - Patient discharged Performed By: #### L 500.2500, L100.0100 ####[facility] [address] [place], [address] RDW CV Normal 11.6-14.6 [facility] Comment on above: Result Comment: Canc elled via OM: Order cancelled - Patient discharged Performed By: #### L 500.2500, L100.0100 ####[facility] [address] [place], [address] RDW SD Normal 35.1-43.9 [facility] Comment on above: Result Comment: Canc elled via OM: Order cancelled - Patient discharged Performed By: #### L 500.2500, L100.0100 ####[facility] [address] [place], [address] WBC Normal 4.4-11.0 [facility] Comment on above: Result Comment: Canc elled via OM: Order cancelled - Patient discharged Performed By: #### L 500.2500, L100.0100 ####[facility] [address] [place], [address] Basic Metabolic Profile (BMP )on 09-14-2024 BUN/CRE 21.4 RATIO High 10-20 [facility] Comment on above: Performed By: #### L 500.2500, L100.0100 ####[facility] [address] [place], [address] CA,Total 8.7 mg/dL Normal 8.5-10.1 [facility] Comment on above: Performed By: #### L 500.2500, L100.0100 ####[facility] [address] [place], [address] Chloride [Moles/Vol] 104 mmol/L Normal 98-107 [facility] Comment on above: Performed By: #### L 500.2500, L100.0100 ####[facility] [address] [place], [address] CO2 [Moles/Vol] 24.0 mmol/L Normal 21.0-32.0 [facility] Comment on above: Performed By: #### L 500.2500, L100.0100 ####[facility] [address] [place], [address] Creatinine [Mass/Vol] 1.96 mg/dL High 0.70-1.30 [facility] Comment on above: Result Comment: The validity of the calculated GFR GFRAA in patients over70 years has not been determined. Clinical correlation isessential. Performed By: #### L 500.2500, L100.0100 ####[facility] [address] [place], [address] ECRCL 28.02 ml/min Normal [facility] Comment on above: Performed By: #### L 500.2500, L100.0100 ####[facility] [address] [place], [address] EST GFR - AA 43 mL/min Low >60 [facility] Comment on above: Result Comment: Afri can [place] GFR Calc Performed By: #### L 500.2500, L100.0100 ####[facility] [address] [place], [address] GAP 7 Normal 5-15 [facility] Comment on above: Performed By: #### L 500.2500, L100.0100 ####[facility] [address] [place], [address] GFR/1.73 sq M.predicted among non-blacks MDRD (S/P/Bld) [Vol rate/Area] 35 mL/min/{1.73_m2} Low >60 [facility] Comment on above: Result Comment: Non- GFR Calc Performed By: #### L 500.2500, L100.0100 ####[facility] [address] [place], [address] Glucose [Mass/Vol] 292 mg/dL High 74-106 [facility] Comment on above: Result Comment: Gluc ose result greater than or equal to 200 mg/dLsuggests DIABETES MELLITUS per A.D.A. criteria. Performed By: #### L 500.2500, L100.0100 ####[facility] [address] [place], [address] Potassium [Moles/Vol] 4.0 mmol/L Normal 3.5-5.1 [facility] Comment on above: Performed By: #### L 500.2500, L100.0100 ####[facility] [address] [place], [address] Sodium [Moles/Vol] 135 mmol/L Low 136-145 [facility] Comment on above: Performed By: #### L 500.2500, L100.0100 ####[facility] [address] [place], [address] Urea nitrogen [Mass/Vol] 42 mg/dL High 7-18 [facility] Comment on above: Performed By: #### L 500.2500, L100.0100 ####[facility] [address] [place], [address] Bedside Glucoseon 09-14-2024 FINGERSTICK GLU 276 mg/dL High 74-106 [facility] Comment on above: Result Comment: Dr James sim FollowedInsulin GivenMANAGEMENT OF PATIENT CARE PER NURSING PROTOCOL Performed By: #### L 501.080 ####[facility] [address] [place], [address] CBC W/Diff, Automatedon 09-01 Absolute Lymph 1.66 X10 3/uL Normal 0.83-4.51 [facility] Comment on above: Performed By: #### L 500.2500, L100.0100 ####[facility] [address] [place], [address] Absolute Neut 7.6 X10 3/uL Normal 2.0-7.7 [facility] Comment on above: Performed By: #### L 500.2500, L100.0100 ####[facility] [address] [place], [address] Basophils/100 WBC (Bld) 0.9 % Normal 0-1 [facility] Comment on above: Performed By: #### L 500.2500, L100.0100 ####[facility] [address] [place], [address] Eosinophils/100 WBC (Bld) 2.2 % Normal 0-5 [facility] Comment on above: Performed By: #### L 500.2500, L100.0100 ####[facility] [address] [place], [address] Erythrocyte distribution width (RBC) [Ratio] 13.4 % Normal 11.6-14.6 [facility] Comment on above: Performed By: #### L 500.2500, L100.0100 ####[facility] [address] [place], [address] Hematocrit (Bld) [Volume fraction] 32.8 % Low 40-54 [facility] Comment on above: Performed By: #### L 500.2500, L100.0100 ####[facility] [address] [place], [address] Hemoglobin (Bld) [Mass/Vol] 11.1 g/dL Low 13.0-16.5 [facility] Comment on above: Performed By: #### L 500.2500, L100.0100 ####[facility] [address] [place], [address] IG% 0.300 Normal 0.0-0.9 [facility] Comment on above: Result Comment: IG% - Immature Granulocytes (promyelocytes, myelocytes andmetamyelocytes) > 1% indicates that a LEFT SHIFT is Present. Performed By: #### L 500.2500, L100.0100 ####[facility] [address] [place], [address] Lymphocytes/100 WBC (Bld) 15.7 % Low 19-41 [facility] Comment on above: Performed By: #### L 500.2500, L100.0100 ####[facility] [address] [place], [address] MCH (RBC) [Entitic mass] 30.7 pg Normal 27.0-32.0 [facility] Comment on above: Performed By: #### L 500.2500, L100.0100 ####[facility] [address] [place], [address] MCHC (RBC) [Mass/Vol] 33.8 g/dL Normal 32-36 [facility] Comment on above: Performed By: #### L 500.2500, L100.0100 ####[facility] [address] [place], [address] MCV (RBC) [Entitic vol] 90.6 fL Normal 80-94 [facility] Comment on above: Performed By: #### L 500.2500, L100.0100 ####[facility] [address] [place], [address] Monocytes/100 WBC (Bld) 9.0 % Normal 0-10 [facility] Comment on above: Performed By: #### L 500.2500, L100.0100 ####[facility] [address] [place], [address] Neutrophils/100 WBC (Bld) 71.9 % High 47-70 [facility] Comment on above: Performed By: #### L 500.2500, L100.0100 ####[facility] [address] [place], [address] Nucleated RBC (Bld) [#/Vol] 0 10*3/uL Normal 0-5 [facility] Comment on above: Performed By: #### L 500.2500, L100.0100 ####[facility] [address] [place], [address] Platelet mean volume (Bld) [Entitic vol] 11.9 fL Normal 6.2-12.0 [facility] Comment on above: Performed By: #### L 500.2500, L100.0100 ####[facility] [address] [place], [address] Platelets (Bld) [#/Vol] 186 10*3/uL Normal 150-450 [facility] Comment on above: Performed By: #### L 500.2500, L100.0100 ####[facility] [address] [place], [address] RBC (Bld) [#/Vol] 3.62 10*6/uL Low 4.6-6.2 [facility] Comment on above: Performed By: #### L 500.2500, L100.0100 ####[facility] [address] [place], [address] RDW SD 44.5 fl High 35.1-43.9 [facility] Comment on above: Performed By: #### L 500.2500, L100.0100 ####[facility] [address] [place], [address] WBC (Bld) [#/Vol] 10.5 10*3/uL Normal 4.4-11.0 [facility] Comment on above: Performed By: #### L 500.2500, L100.0100 ####[facility] [address] [place], [address] Basic Metabolic Profile (BMP )on 09-13-2024 BUN Normal 7-18 [facility] Comment on above: Result Comment: Canc elled via OM: MD Ordered Performed By: #### L 500.2500, L100.0100 ####[facility] [address] [place], [address] BUN/CRE Normal 10-20 [facility] Comment on above: Result Comment: Canc elled via OM: MD Ordered Performed By: #### L 500.2500, L100.0100 ####[facility] [address] [place], [address] CA,Total Normal 8.5-10.1 [facility] Comment on above: Result Comment: Canc elled via OM: MD Ordered Performed By: #### L 500.2500, L100.0100 ####[facility] [address] [place], [address] CL Normal 98-107 [facility] Comment on above: Result Comment: Canc elled via OM: MD Ordered Performed By: #### L 500.2500, L100.0100 ####[facility] [address] [place], [address] CO2 Normal 21.0-32.0 [facility] Comment on above: Result Comment: Canc elled via OM: MD Ordered Performed By: #### L 500.2500, L100.0100 ####[facility] [address] [place], [address] CREAT,SERUM Normal 0.70-1.30 [facility] Comment on above: Result Comment: Canc elled via OM: MD Ordered Performed By: #### L 500.2500, L100.0100 ####[facility] [address] [place], [address] EST GFR Normal >60 [facility] Comment on above: Result Comment: Canc elled via OM: MD Ordered Performed By: #### L 500.2500, L100.0100 ####[facility] [address] [place], [address] EST GFR - AA Normal >60 [facility] Comment on above: Result Comment: Canc elled via OM: MD Ordered Performed By: #### L 500.2500, L100.0100 ####[facility] [address] [place], [address] GAP Normal 5-15 [facility] Comment on above: Result Comment: Canc elled via OM: MD Ordered Performed By: #### L 500.2500, L100.0100 ####[facility] [address] [place], [address] GLU Normal 74-106 [facility] Comment on above: Result Comment: Canc elled via OM: MD Ordered Performed By: #### L 500.2500, L100.0100 ####[facility] [address] [place], [address] Potassium Normal 3.5-5.1 [facility] Comment on above: Result Comment: Canc elled via OM: MD Ordered Performed By: #### L 500.2500, L100.0100 ####[facility] [address] [place], [address] Basic Metabolic Profile (BMP) Normal 136-145 [facility] Comment on above: Result Comment: Canc elled via OM: MD Ordered Performed By: #### L 500.2500, L100.0100 ####[facility] [address] [place], [address] BUN/CRE 17.4 RATIO Normal 10-20 [facility] Comment on above: Performed By: #### L 501.5200, L500.2500, L501.2300, L100.0100 ####[facility] [address] [place], [address] CA,Total 8.7 mg/dL Normal 8.5-10.1 [facility] Comment on above: Performed By: #### L 501.5200, L500.2500, L501.2300, L100.0100 ####[facility] [address] [place], [address] Chloride [Moles/Vol] 105 mmol/L Normal 98-107 [facility] Comment on above: Performed By: #### L 501.5200, L500.2500, L501.2300, L100.0100 ####[facility] [address] [place], [address] CO2 [Moles/Vol] 28.0 mmol/L Normal 21.0-32.0 [facility] Comment on above: Performed By: #### L 501.5200, L500.2500, L501.2300, L100.0100 ####[facility] [address] [place], [address] Creatinine [Mass/Vol] 1.78 mg/dL High 0.70-1.30 [facility] Comment on above: Result Comment: The validity of the calculated GFR GFRAA in patients over70 years has not been determined. Clinical correlation isessential. Performed By: #### L 501.5200, L500.2500, L501.2300, L100.0100 ####[facility] [address] [place], [address] ECRCL 30.95 ml/min Normal [facility] Comment on above: Performed By: #### L 501.5200, L500.2500, L501.2300, L100.0100 ####[facility] [address] [place], [address] EST GFR - AA 47 mL/min Low >60 [facility] Comment on above: Result Comment: Afri can [place] GFR Calc Performed By: #### L 501.5200, L500.2500, L501.2300, L100.0100 ####[facility] [address] [place], [address] GAP 7 Normal 5-15 [facility] Comment on above: Performed By: #### L 501.5200, L500.2500, L501.2300, L100.0100 ####[facility] [address] [place], [address] GFR/1.73 sq M.predicted among non-blacks MDRD (S/P/Bld) [Vol rate/Area] 39 mL/min/{1.73_m2} Low >60 [place] Comment on above: Result Comment: Non- GFR Calc Performed By: #### L 501.5200, L500.2500, L501.2300, L100.0100 ####[facility] [address] [place], [address] Glucose [Mass/Vol] 138 mg/dL High 74-106 [facility] Comment on above: Result Comment: Fast ing Glucose result greater than or equal to 126 mg/dLsuggests DIABETES MELLITUS per A.D.A. criteria. Performed By: #### L 501.5200, L500.2500, L501.2300, L100.0100 ####[facility] [address] [place], [address] Potassium [Moles/Vol] 3.4 mmol/L Low 3.5-5.1 [facility] Comment on above: Performed By: #### L 501.5200, L500.2500, L501.2300, L100.0100 ####[facility] [address] [place], [address] Sodium [Moles/Vol] 140 mmol/L Normal 136-145 [facility] Comment on above: Performed By: #### L 501.5200, L500.2500, L501.2300, L100.0100 ####[facility] [address] [place], [address] Urea nitrogen [Mass/Vol] 31 mg/dL High 7-18 [facility] Comment on above: Performed By: #### L 501.5200, L500.2500, L501.2300, L100.0100 ####[facility] [address] [place], [address] Bedside Glucoseon 09-13-2024 FINGERSTICK GLU 281 mg/dL High 74-106 [facility] Comment on above: Result Comment: ADITI GEMENT OF PATIENT CARE PER NURSING PROTOCOL Performed By: #### L 501.080 ####[facility] [address] [place], [address] FINGERSTICK GLU 179 mg/dL High 74-106 [facility] Comment on above: Result Comment: ADITI GEMENT OF PATIENT CARE PER NURSING PROTOCOL Performed By: #### L 501.080 ####[facility] [address] [place], [address] FINGERSTICK GLU 234 mg/dL High 74-106 [facility] Comment on above: Result Comment: ADITI GEMENT OF PATIENT CARE PER NURSING PROTOCOL Performed By: #### L 501.080 ####[facility] [address] [place], [address] FINGERSTICK GLU 238 mg/dL High 74-106 [facility] Comment on above: Result Comment: ADITI GEMENT OF PATIENT CARE PER NURSING PROTOCOL Performed By: #### L 501.080 ####[facility] [address] [place], [address] FINGERSTICK GLU 126 mg/dL High 74-106 [facility] Comment on above: Result Comment: ADITI GEMENT OF PATIENT CARE PER NURSING PROTOCOL Performed By: #### L 501.080 ####[facility] [address] [place], [address] CBC W/Diff, Automatedon 11- Absolute Neut Normal 2.0-7.7 [facility] Comment on above: Result Comment: Canc elled via OM: MD Ordered Performed By: #### L 500.2500, L100.0100 ####[facility] [address] [place], [address] HCT Normal 40-54 [facility] Comment on above: Result Comment: Canc elled via OM: MD Ordered Performed By: #### L 500.2500, L100.0100 ####[facility] [address] [place], [address] HGB Normal 13.0-16.5 [facility] Comment on above: Result Comment: Canc elled via OM: MD Ordered Performed By: #### L 500.2500, L100.0100 ####[facility] [address] [place], [address] MCH Normal 27.0-32.0 [facility] Comment on above: Result Comment: Canc elled via OM: MD Ordered Performed By: #### L 500.2500, L100.0100 ####[facility] [address] [place], [address] MCHC Normal 32-36 [facility] Comment on above: Result Comment: Canc elled via OM: MD Ordered Performed By: #### L 500.2500, L100.0100 ####[facility] [address] [place], [address] MCV Normal 80-94 [facility] Comment on above: Result Comment: Canc elled via OM: MD Ordered Performed By: #### L 500.2500, L100.0100 ####[facility] [address] [place], [address] NEUT% Normal 47-70 [facility] Comment on above: Result Comment: Canc elled via OM: MD Ordered Performed By: #### L 500.2500, L100.0100 ####[facility] [address] [place], [address] PLT Normal 150-450 [facility] Comment on above: Result Comment: Canc elled via OM: MD Ordered Performed By: #### L 500.2500, L100.0100 ####[facility] [address] [place], [address] RBC Normal 4.6-6.2 [facility] Comment on above: Result Comment: Canc elled via OM: MD Ordered Performed By: #### L 500.2500, L100.0100 ####[facility] [address] [place], [address] RDW CV Normal 11.6-14.6 [facility] Comment on above: Result Comment: Canc elled via OM: MD Ordered Performed By: #### L 500.2500, L100.0100 ####[facility] [address] [place], [address] RDW SD Normal 35.1-43.9 [facility] Comment on above: Result Comment: Canc elled via OM: MD Ordered Performed By: #### L 500.2500, L100.0100 ####[facility] [address] [place], [address] WBC Normal 4.4-11.0 [facility] Comment on above: Result Comment: Canc elled via OM: MD Ordered Performed By: #### L 500.2500, L100.0100 ####[facility] [address], [address] Absolute Lymph 2.32 X10 3/uL Normal 0.83-4.51 [facility] Comment on above: Performed By: #### L 501.5200, L500.2500, L501.2300, L100.0100 ####[facility] [address] [place], [address] Absolute Neut 7.4 X10 3/uL Normal 2.0-7.7 [facility] Comment on above: Performed By: #### L 501.5200, L500.2500, L501.2300, L100.0100 ####[facility] [address] [place], [address] Basophils/100 WBC (Bld) 0.8 % Normal 0-1 [facility] Comment on above: Performed By: #### L 501.5200, L500.2500, L501.2300, L100.0100 ####[facility] [address] [place], [address] Eosinophils/100 WBC (Bld) 1.3 % Normal 0-5 [facility] Comment on above: Performed By: #### L 501.5200, L500.2500, L501.2300, L100.0100 ####[facility] [address] [place], [address] Erythrocyte distribution width (RBC) [Ratio] 13.8 % Normal 11.6-14.6 [facility] Comment on above: Performed By: #### L 501.5200, L500.2500, L501.2300, L100.0100 ####[facility] [address] [place], [address] Hematocrit (Bld) [Volume fraction] 30.7 % Low 40-54 [facility] Comment on above: Performed By: #### L 501.5200, L500.2500, L501.2300, L100.0100 ####[facility] [address] [place], [address] Hemoglobin (Bld) [Mass/Vol] 10.4 g/dL Low 13.0-16.5 [facility] Comment on above: Performed By: #### L 501.5200, L500.2500, L501.2300, L100.0100 ####[facility] [address] [place], [address] IG% 0.400 Normal 0.0-0.9 [facility] Comment on above: Result Comment: IG% - Immature Granulocytes (promyelocytes, myelocytes andmetamyelocytes) > 1% indicates that a LEFT SHIFT is Present. Performed By: #### L 501.5200, L500.2500, L501.2300, L100.0100 ####[facility] [address] [place], [address] Lymphocytes/100 WBC (Bld) 21.2 % Normal 19-41 [facility] Comment on above: Performed By: #### L 501.5200, L500.2500, L501.2300, L100.0100 ####[facility] [address] [place], [address] MCH (RBC) [Entitic mass] 30.6 pg Normal 27.0-32.0 [facility] Comment on above: Performed By: #### L 501.5200, L500.2500, L501.2300, L100.0100 ####[facility] [address] [place], [address] MCHC (RBC) [Mass/Vol] 33.9 g/dL Normal 32-36 [facility] Comment on above: Performed By: #### L 501.5200, L500.2500, L501.2300, L100.0100 ####[facility] [address] [place], [address] MCV (RBC) [Entitic vol] 90.3 fL Normal 80-94 [facility] Comment on above: Performed By: #### L 501.5200, L500.2500, L501.2300, L100.0100 ####[facility] [address] [place], [address] Monocytes/100 WBC (Bld) 9.3 % Normal 0-10 [facility] Comment on above: Performed By: #### L 501.5200, L500.2500, L501.2300, L100.0100 ####[facility] [address] [place], [address] Neutrophils/100 WBC (Bld) 67.0 % Normal 47-70 [facility] Comment on above: Performed By: #### L 501.5200, L500.2500, L501.2300, L100.0100 ####[facility] [address] [place], [address] Nucleated RBC (Bld) [#/Vol] 0 10*3/uL Normal 0-5 [facility] Comment on above: Performed By: #### L 501.5200, L500.2500, L501.2300, L100.0100 ####[facility] [address] [place], [address] Platelet mean volume (Bld) [Entitic vol] 11.4 fL Normal 6.2-12.0 [facility] Comment on above: Performed By: #### L 501.5200, L500.2500, L501.2300, L100.0100 ####[facility] [address] [place], [address] Platelets (Bld) [#/Vol] 168 10*3/uL Normal 150-450 [facility] Comment on above: Performed By: #### L 501.5200, L500.2500, L501.2300, L100.0100 ####[facility] [address] [place], [address] RBC (Bld) [#/Vol] 3.40 10*6/uL Low 4.6-6.2 [facility] Comment on above: Performed By: #### L 501.5200, L500.2500, L501.2300, L100.0100 ####[facility] [address] [place], [address] RDW SD 45.1 fl High 35.1-43.9 [facility] Comment on above: Performed By: #### L 501.5200, L500.2500, L501.2300, L100.0100 ####[facility] [address] [place], [address] WBC (Bld) [#/Vol] 11.0 10*3/uL Normal 4.4-11.0 [facility] Comment on above: Performed By: #### L 501.5200, L500.2500, L501.2300, L100.0100 ####[facility] [address] [place], [address] Magnesiumon 09-13-2024 Magnesium [Mass/Vol] 2.0 mg/dL Normal 1.6-2.6 [facility] Comment on above: Performed By: #### L 501.5200, L500.2500, L501.2300, L100.0100 ####[facility] [address] [place], [address] Phosphoruson 09-13-2024 Phosphate [Mass/Vol] 3.2 mg/dL Normal 2.5-4.9 [facility] Comment on above: Performed By: #### L 501.5200, L500.2500, L501.2300, L100.0100 ####[facility] [address] [place], [address] 12 Lead EKGon 09-12-2024 12 Lead EKG Normal [facility] BNP,B-Type NATRIURETIC PEPTI Silviano 09-12-2024 Natriuretic peptide B (Bld) [Mass/Vol] 903.4 pg/mL High 0-100 [facility] Comment on above: Performed By: #### L 100.0100, L501.5425, L300.3900, L501.5200, L300.4310, L500.2500, L503.6620 ####[facility] [address] [place], [address] Basic Metabolic Profile (BMP )on 09-12-2024 BUN/CRE 14.5 RATIO Normal 10-20 [facility] Comment on above: Order Comment: 1Y Performed By: #### L 100.0100, L501.5425, L300.3900, L501.5200, L300.4310, L500.2500, L503.6620 ####[facility] [address] [place], [address] CA,Total 9.1 mg/dL Normal 8.5-10.1 [facility] Comment on above: Order Comment: 1Y Performed By: #### L 100.0100, L501.5425, L300.3900, L501.5200, L300.4310, L500.2500, L503.6620 ####[facility] [address] [place], [address] Chloride [Moles/Vol] 105 mmol/L Normal 98-107 [facility] Comment on above: Order Comment: 1Y Performed By: #### L 100.0100, L501.5425, L300.3900, L501.5200, L300.4310, L500.2500, L503.6620 ####[facility] [address] [place], [address] CO2 [Moles/Vol] 22.0 mmol/L Normal 21.0-32.0 [facility] Comment on above: Order Comment: 1Y Performed By: #### L 100.0100, L501.5425, L300.3900, L501.5200, L300.4310, L500.2500, L503.6620 ####[facility] [address] [place], [address] Creatinine [Mass/Vol] 1.86 mg/dL High 0.70-1.30 [facility] Comment on above: Order Comment: 1Y Result Comment: The validity of the calculated GFR GFRAA in patients over70 years has not been determined. Clinical correlation isessential. Performed By: #### L 100.0100, L501.5425, L300.3900, L501.5200, L300.4310, L500.2500, L503.6620 ####[facility] [address] [place], [address] ECRCL 29.61 ml/min Normal [facility] Comment on above: Order Comment: 1Y Performed By: #### L 100.0100, L501.5425, L300.3900, L501.5200, L300.4310, L500.2500, L503.6620 ####[facility] [address] [place], [address] EST GFR - AA 45 mL/min Low >60 [facility] Comment on above: Order Comment: 1Y Result Comment: Afri can [place] GFR Calc Performed By: #### L 100.0100, L501.5425, L300.3900, L501.5200, L300.4310, L500.2500, L503.6620 ####[facility] [address] [place], [address] GAP 11 Normal 5-15 [facility] Comment on above: Order Comment: 1Y Performed By: #### L 100.0100, L501.5425, L300.3900, L501.5200, L300.4310, L500.2500, L503.6620 ####[facility] [address] [place], [address] GFR/1.73 sq M.predicted among non-blacks MDRD (S/P/Bld) [Vol rate/Area] 37 mL/min/{1.73_m2} Low >60 [place] Comment on above: Order Comment: 1Y Result Comment: Non- GFR Calc Performed By: #### L 100.0100, L501.5425, L300.3900, L501.5200, L300.4310, L500.2500, L503.6620 ####[facility] [address] [place], [address] Glucose [Mass/Vol] 369 mg/dL High 74-106 [facility] Comment on above: Order Comment: 1Y Result Comment: Gluc ose result greater than or equal to 200 mg/dLsuggests DIABETES MELLITUS per A.D.A. criteria. Performed By: #### L 100.0100, L501.5425, L300.3900, L501.5200, L300.4310, L500.2500, L503.6620 ####[facility] [address] [place], [address] Potassium [Moles/Vol] 4.1 mmol/L Normal 3.5-5.1 [facility] Comment on above: Order Comment: 1Y Performed By: #### L 100.0100, L501.5425, L300.3900, L501.5200, L300.4310, L500.2500, L503.6620 ####[facility] [address] [place], [address] Sodium [Moles/Vol] 138 mmol/L Normal 136-145 [facility] Comment on above: Order Comment: 1Y Performed By: #### L 100.0100, L501.5425, L300.3900, L501.5200, L300.4310, L500.2500, L503.6620 ####[facility] [address] [place], [address] Urea nitrogen [Mass/Vol] 27 mg/dL High 7-18 [facility] Comment on above: Order Comment: 1Y Performed By: #### L 100.0100, L501.5425, L300.3900, L501.5200, L300.4310, L500.2500, L503.6620 ####[facility] [address] [place], [address] Bedside Glucoseon 09-12-2024 FINGERSTICK GLU 202 mg/dL High 74-106 [facility] Comment on above: Result Comment: ADITI GEMENT OF PATIENT CARE PER NURSING PROTOCOL Performed By: #### L 501.080 ####[facility] [address] [place], [address] FINGERSTICK GLU 122 mg/dL High 74-106 [facility] Comment on above: Result Comment: ADITI GEMENT OF PATIENT CARE PER NURSING PROTOCOL Performed By: #### L 501.080 ####[facility] [address] [place], [address] FINGERSTICK GLU 398 mg/dL High 74-106 [facility] Comment on above: Result Comment: ADITI GEMENT OF PATIENT CARE PER NURSING PROTOCOL Performed By: #### L 501.080 ####[facility] [address] [place], [address] FINGERSTICK GLU 377 mg/dL High 74-106 [facility] Comment on above: Result Comment: ADITI ESCOBEDO OF PATIENT CARE PER NURSING PROTOCOL Performed By: #### L 501.080 ####[facility] [address] [place], [address] CBC W/Diff, Automatedon 11- Absolute Lymph 2.62 X10 3/uL Normal 0.83-4.51 [facility] [place] Comment on above: Performed By: #### L 100.0100, L501.5425, L300.3900, L501.5200, L300.4310, L500.2500, L503.6620 ####[facility] [place] [address] [place], [address] Absolute Neut 19.7 X10 3/uL High 2.0-7.7 [facility] [place] Comment on above: Performed By: #### L 100.0100, L501.5425, L300.3900, L501.5200, L300.4310, L500.2500, L503.6620 ####[facility] [place] [address] [place], [address] Basophils/100 WBC (Bld) 0.7 % Normal 0-1 [facility] Comment on above: Performed By: #### L 100.0100, L501.5425, L300.3900, L501.5200, L300.4310, L500.2500, L503.6620 ####[facility] [place] [address] [place], [address] Eosinophils/100 WBC (Bld) 0.8 % Normal 0-5 [facility] [place] Comment on above: Performed By: #### L 100.0100, L501.5425, L300.3900, L501.5200, L300.4310, L500.2500, L503.6620 ####[facility] [place] [address] [place], [address] Erythrocyte distribution width (RBC) [Ratio] 13.8 % Normal 11.6-14.6 [facility] [place] Comment on above: Performed By: #### L 100.0100, L501.5425, L300.3900, L501.5200, L300.4310, L500.2500, L503.6620 ####[facility] [place] [address] [place], [address] Hematocrit (Bld) [Volume fraction] 38.9 % Low 40-54 [facility] [place] Comment on above: Performed By: #### L 100.0100, L501.5425, L300.3900, L501.5200, L300.4310, L500.2500, L503.6620 ####[facility] [place] [address] [place], [address] Hemoglobin (Bld) [Mass/Vol] 13.1 g/dL Normal 13.0-16.5 [facility] [place] Comment on above: Performed By: #### L 100.0100, L501.5425, L300.3900, L501.5200, L300.4310, L500.2500, L503.6620 ####[facility] [place] [address] [place], [address] IG% 0.800 Normal 0.0-0.9 [facility] [place] Comment on above: Result Comment: IG% - Immature Granulocytes (promyelocytes, myelocytes andmetamyelocytes) > 1% indicates that a LEFT SHIFT is Present. Performed By: #### L 100.0100, L501.5425, L300.3900, L501.5200, L300.4310, L500.2500, L503.6620 ####[facility] [place] [address] [place], [address] Lymphocytes/100 WBC (Bld) 10.7 % Low 19-41 [facility] [place] Comment on above: Performed By: #### L 100.0100, L501.5425, L300.3900, L501.5200, L300.4310, L500.2500, L503.6620 ####[facility] [place] [address] [place], [address] MCH (RBC) [Entitic mass] 30.6 pg Normal 27.0-32.0 [facility] [place] Comment on above: Performed By: #### L 100.0100, L501.5425, L300.3900, L501.5200, L300.4310, L500.2500, L503.6620 ####[facility] [place] [address] [place], [address] MCHC (RBC) [Mass/Vol] 33.7 g/dL Normal 32-36 [facility] Comment on above: Performed By: #### L 100.0100, L501.5425, L300.3900, L501.5200, L300.4310, L500.2500, L503.6620 ####[facility] [place] [address] [place], [address] MCV (RBC) [Entitic vol] 90.9 fL Normal 80-94 [facility] Comment on above: Performed By: #### L 100.0100, L501.5425, L300.3900, L501.5200, L300.4310, L500.2500, L503.6620 ####[facility] [place] [address] [place], [address] Monocytes/100 WBC (Bld) 6.2 % Normal 0-10 [facility] Comment on above: Performed By: #### L 100.0100, L501.5425, L300.3900, L501.5200, L300.4310, L500.2500, L503.6620 ####[facility] [place] [address] [place], [address] Neutrophils/100 WBC (Bld) 80.8 % High 47-70 [facility] [place] Comment on above: Performed By: #### L 100.0100, L501.5425, L300.3900, L501.5200, L300.4310, L500.2500, L503.6620 ####[facility] [place] [address] [place], [address] Nucleated RBC (Bld) [#/Vol] 0 10*3/uL Normal 0-5 [facility] [place] Comment on above: Performed By: #### L 100.0100, L501.5425, L300.3900, L501.5200, L300.4310, L500.2500, L503.6620 ####[facility] [place] [address] [place], [address] Platelet mean volume (Bld) [Entitic vol] 11.4 fL Normal 6.2-12.0 [facility] [place] Comment on above: Performed By: #### L 100.0100, L501.5425, L300.3900, L501.5200, L300.4310, L500.2500, L503.6620 ####[facility] [place] [address] [place], [address] Platelets (Bld) [#/Vol] 227 10*3/uL Normal 150-450 [facility] [place] Comment on above: Performed By: #### L 100.0100, L501.5425, L300.3900, L501.5200, L300.4310, L500.2500, L503.6620 ####[facility] [place] [address] [place], [address] RBC (Bld) [#/Vol] 4.28 10*6/uL Low 4.6-6.2 [facility] Comment on above: Performed By: #### L 100.0100, L501.5425, L300.3900, L501.5200, L300.4310, L500.2500, L503.6620 ####[facility] [place] [address] [place], [address] RDW SD 46.5 fl High 35.1-43.9 [facility] [place] Comment on above: Performed By: #### L 100.0100, L501.5425, L300.3900, L501.5200, L300.4310, L500.2500, L503.6620 ####[facility] [place] [address] [place], [address] WBC (Bld) [#/Vol] 24.4 10*3/uL High 4.4-11.0 [facility] Comment on above: Performed By: #### L 100.0100, L501.5425, L300.3900, L501.5200, L300.4310, L500.2500, L503.6620 ####[facility] [place] [address] [place], [address] Chest 1 View (Portable)on Chest 1 View (Portable) Normal [facility] Echo Completeon 09-12-2024 Echo Complete Normal [facility] [place] Emergency Department Summary on 09-12-2024 Emergency Department Summary Normal [facility] [place] Kidney and Bladderon 024 Kidney and Bladder Normal [facility] L501.4020on 09-12-2024 TROPONIN-I HS 346 pg/mL Invalid Interpretation Code 3.0-78.0 [facility] [place] Comment on above: Order Comment: 'TROP ' Serial specimen #1, #2 or #3: 3 Result Comment: Crit ical Result(s) Called at: 09:19:13 09/12/2024 by:Eve Mendoza to Tania Cruz. Results read back by same. Please Note: New Test Units and Gender Specific Reference Ranges. For more information see Policy Stat Procedure [place] High Sensitivity Troponin (TNIH) and attachments. Performed By: #### L 501.4020 ####[facility] [place] [address] [place], [address] TROPONIN-I HS 205 pg/mL Invalid Interpretation Code 3.0-78.0 [facility] [place] Comment on above: Result Comment: Crit ical Result(s) Called at: 06:27:52 09/12/2024 by:Eve Valiente. Results read back by same. Please Note: New Test Units and Gender Specific Reference Ranges. For more information see Policy Stat Procedure [place] High Sensitivity Troponin (TNIH) and attachments. Performed By: #### L 501.4020 ####[facility] [place] [address] [place], [address] L501.5425on 09-12-2024 TROPONIN-I HS 57 pg/mL Normal 3.0-78.0 [facility] [place] Comment on above: Order Comment: 1Y Result Comment: Helder francisco Note: New Test Units and Gender Specific Reference Ranges. For more information see Policy Stat Procedure [place] High Sensitivity Troponin (TNIH) and attachments. Performed By: #### L 100.0100, L501.5425, L300.3900, L501.5200, L300.4310, L500.2500, L503.6620 ####[facility] [place] [address] [place], [address] Magnesiumon 09-12-2024 Magnesium [Mass/Vol] 2.1 mg/dL Normal 1.6-2.6 [facility] Comment on above: Order Comment: 1Y Performed By: #### L 100.0100, L501.5425, L300.3900, L501.5200, L300.4310, L500.2500, L503.6620 ####[facility] [place] [address] [place], [address] Partial Thromboplast Timeon 09-12-2024 aPTT Coag (Bld) [Time] 35.1 s Normal 24.1-36.2 [place] Comment on above: Performed By: #### L 100.0100, L501.5425, L300.3900, L501.5200, L300.4310, L500.2500, L503.6620 ####[facility] [place] [address] [place], [address] Prothrombin Time w/INRon INR Coag (PPP) [Relative time] 1.1 {INR} Normal [facility] [place] Comment on above: Performed By: #### L 100.0100, L501.5425, L300.3900, L501.5200, L300.4310, L500.2500, L503.6620 ####[facility] [place] [address] [place], [address] PT Coag (PPP) [Time] 14.6 s Normal 11.7-14.9 [facility] Comment on above: Performed By: #### L 100.0100, L501.5425, L300.3900, L501.5200, L300.4310, L500.2500, L503.6620 ####[facility] [place] [address] [place], [place], [address] Renal Artery Duplex Ultrasou ndon 09-12-2024 Renal Artery Duplex Ultrasound Normal [facility] [place] CBC W Auto Differential pane l (Bld)on 07-07-2024 Basophils (Bld) [#/Vol] 0.09 x10*3/uL Normal 0.00-0.10 [facility] Comment on above: Performed By: #### 5 7021-8 #### MAGGI PARNELL ([id number]) [facility] [address] [place] [address] Basophils/100 WBC (Bld) 1.1 % Normal 0.0-2.0 [facility] Comment on above: Performed By: #### 5 7021-8 #### MAGGI PARNELL ([id number]) [facility] [address] [place] [address] Eosinophils (Bld) [#/Vol] 0.43 x10*3/uL High 0.00-0. 40 [facility] Comment on above: Performed By: #### 5 7021-8 #### MAGGI PARNELL ([id number]) [facility] [address] [place] [address] Eosinophils/100 WBC (Bld) 5.4 % Normal 0.0-6.0 [facility] Comment on above: Performed By: #### 5 7021-8 #### MAGGI PARNELL ([id number]) [facility] [address] [place] [address]27 Erythrocyte distribution width (RBC) [Ratio] 13.5 % Normal 11.5-14.5 [facility] Comment on above: Performed By: #### 5 7021-8 #### MAGGI PARNELL ([id number]) [facility] [address] [place] [address] Hematocrit (Bld) [Volume fraction] 43.5 % Normal 41.0-52.0 [facility] Comment on above: Performed By: #### 5 7021-8 #### MAGGI PARNELL ([id number]) [facility] [address] [place] [address] Hemoglobin (Bld) [Mass/Vol] 13.6 g/dL Normal 13.5-17.5 [facility] Comment on above: Performed By: #### 5 7021-8 #### MAGGI PARNELL ([id number]) [facility] [address] [place] [address]686 Immature granulocytes (Bld) [#/Vol] 0.02 x10*3/uL Normal 0.00-0.50 [facility] Comment on above: Performed By: #### 5 7021-8 #### MAGGI PARNELL ([id number]) [facility] [address] [place] [address] Immature granulocytes/100 WBC (Bld) 0.3 % Normal 0.0-0.9 [facility] Comment on above: Result Comment: Arielle ture Granulocyte Count (IG) includes promyelocytes, myelocytes and metamyelocytes but does not include bands. Percent differential counts (%) should be interpreted in the context of the absolute cell counts (cells/UL). Performed By: #### 5 7021-8 #### MAGGI PARNELL ([id number]) [facility] [address] [place] [address] Lymphocytes (Bld) [#/Vol] 2.08 x10*3/uL Normal 0.80-3. 00 [facility] Comment on above: Performed By: #### 5 7021-8 #### MAGGI PARNELL ([id number]) [facility] [address] [place] [address] 92827 Lymphocytes/100 WBC (Bld) 26.3 % Normal 13.0-44.0 [facility] Comment on above: Performed By: #### 5 7021-8 #### MAGGI PARNELL ([id number]) [facility] [address] [place] [address] 76048 MCH (RBC) [Entitic mass] 30.4 pg Normal 26.0-34.0 [facility] Comment on above: Performed By: #### 5 7021-8 #### MAGGI PARNELL ([id number]) [facility] [address] [place] [address] MCHC (RBC) [Mass/Vol] 31.3 g/dL Low 32.0-36.0 [facility] Comment on above: Performed By: #### 5 7021-8 #### MAGGI PARNELL ([id number]) [facility] [address] [place] [address]4460 MCV (RBC) [Entitic vol] 97 fL Normal 80-100 [facility] Comment on above: Performed By: #### 5 7021-8 #### MAGGI PARNELL ([id number]) [facility] [address] [place] [address] 64271 Monocytes (Bld) [#/Vol] 0.60 x10*3/uL Normal 0.05-0.80 [facility] Comment on above: Performed By: #### 5 7021-8 #### MAGGI PARNELL ([id number]) [facility] [address] [place] [address] Monocytes/100 WBC (Bld) 7.6 % Normal 2.0-10.0 [facility] Comment on above: Performed By: #### 5 7021-8 #### MAGGI PARNELL ([id number]) [facility] [address] [place] [address] 99415 Neutrophils (Bld) [#/Vol] 4.68 x10*3/uL Normal 1.60-5. 50 [facility] Comment on above: Result Comment: Perc ent differential counts (%) should be interpreted in the context of the absolute cell counts (cells/uL). Performed By: #### 5 7021-8 #### MAGGI PARNELL ([id number]) [facility] [address] [place] [address] 80819 Neutrophils/100 WBC (Bld) 59.3 % Normal 40.0-80.0 [facility] Comment on above: Performed By: #### 5 7021-8 #### MAGGI PARNELL ([id number]) [facility] [address] [place] [address] 47243 Nucleated RBC/100 WBC (Bld) [Ratio] 0.0 /100 WBCs Normal 0.0-0.0 [facility] Comment on above: Performed By: #### 5 7021-8 #### MAGGI PARNELL ([id number]) [facility] [address] [place] [address] 73170 Platelets (Bld) [#/Vol] 260 x10*3/uL Normal 150-450 [facility] Comment on above: Performed By: #### 5 7021-8 #### MAGGI PARNELL ([id number]) [facility] [address] [place] [address] 23268 RBC (Bld) [#/Vol] 4.48 x10*6/uL Low 4.50-5.90 [facility] Comment on above: Performed By: #### 5 7021-8 #### MAGGI PARNELL ([id number]) [facility] [address] [place] [address] 07625 WBC (Bld) [#/Vol] 7.9 x10*3/uL Normal 4.4-11.3 [facility] Comment on above: Performed By: #### 5 7021-8 #### MAGGI PARNELL ([id number]) [facility] [address] [place] [address] 10542 Comprehensive metabolic 2000 panelon 07-07-2024 Albumin BCP dye [Mass/Vol] 4.3 g/dL Normal 3.4-5.0 [facility] Comment on above: Performed By: #### 2 4323-8 #### MAGGI PARNELL ([id number]) [facility] [address] [place] [address] 06853 ALP [Catalytic activity/Vol] 69 U/L Normal 33-136 [facility] Comment on above: Performed By: #### 2 4323-8 #### MAGGI PARNELL ([id number]) [facility] [address] [place] [address] 70863 ALT With P-5'-P [Catalytic activity/Vol] 8 U/L Low 10-52 [facility] Comment on above: Result Comment: Twila ents treated with Sulfasalazine may generate falsely decreased results for ALT. Performed By: #### 2 4323-8 #### MAGGI PARNELL ([id number]) [facility] [address] [place] [address] 35057 Anion gap [Moles/Vol] 14 mmol/L Normal 10-20 [facility] Comment on above: Performed By: #### 2 4323-8 #### MAGGI PARNELL ([id number]) [facility] [address] [place] [address] 96858 AST With P-5'-P [Catalytic activity/Vol] 13 U/L Normal 9-39 [facility] Comment on above: Performed By: #### 2 4323-8 #### MAGGI PARNELL ([id number]) [facility] [address] [place] [address] 35695 Bilirubin [Mass/Vol] 0.5 mg/dL Normal 0.0-1.2 [facility] Comment on above: Performed By: #### 2 4323-8 #### MAGGI PARNELL ([id number]) [facility] [address] [place] [address] Calcium [Mass/Vol] 9.5 mg/dL Normal 8.6-10.3 [facility] Comment on above: Performed By: #### 2 4323-8 #### MAGGI PARNELL ([id number]) [facility] [address] [place] [address] Chloride [Moles/Vol] 106 mmol/L Normal 98-107 [facility] Comment on above: Performed By: #### 2 4323-8 #### MAGGI PARNELL ([id number]) [facility] [address] [place] [address] CO2 [Moles/Vol] 27 mmol/L Normal 21-32 [facility] Comment on above: Performed By: #### 2 4323-8 #### MAGGI PARNELL ([id number]) [facility] [address] [place] [address] Creatinine [Mass/Vol] 1.61 mg/dL High 0.50-1.30 [facility] Comment on above: Performed By: #### 2 4323-8 #### MAGGI PARNELL ([id number]) [facility] [address] [place] [address] Glomerular filtration rate/1.73 sq M.predicted 43 mL/min/1.73m*2 Low >60 [facility] Comment on above: Result Comment: Calc ulations of estimated GFR are performed using the 2020 CKD-EPI Study Refit equation without the race variable for the IDMS-Traceable creatinine methods. https://jasn.asnjournals.org/content//ASN.20 87936247 Performed By: #### 2 4323-8 #### MAGGI PARNELL ([id number]) [facility] [address] [place] [address] Glucose [Mass/Vol] 119 mg/dL High 74-99 [facility] Comment on above: Performed By: #### 2 4323-8 #### MAGGI PARNELL ([id number]) [facility] [address] [place] [address] 79229 Potassium [Moles/Vol] 4.0 mmol/L Normal 3.5-5.3 [facility] Comment on above: Performed By: #### 2 4323-8 #### MAGGI PARNELL ([id number]) [facility] [address] [place] [address] 74619 Protein [Mass/Vol] 6.8 g/dL Normal 6.4-8.2 [facility] Comment on above: Performed By: #### 2 4323-8 #### MAGGI PARNELL ([id number]) [facility] [address] [place] [address] 75059 Sodium [Moles/Vol] 143 mmol/L Normal 136-145 [facility] Comment on above: Performed By: #### 2 4323-8 #### MAGGI PARNELL ([id number]) [facility] [address] [place] [address] 82601 Urea nitrogen [Mass/Vol] 28 mg/dL High 6-23 [facility] Comment on above: Performed By: #### 2 4323-8 #### MAGGI PARNELL ([id number]) [facility] [address] [place] [address] 83137 HbA1c (Bld) [Mass fraction]o n 07-07-2024 Average glucose Estimated from glycated hemoglobin (Bld) [Mass/Vol] 180 mg/dL Normal Not Established [facility] Comment on above: Order Comment: Diagn osis of Diabetes-Adults Non-Diabetic: < or = 5.6% Increased risk for developing diabetes: 5.7-6.4% Diagnostic of diabetes: > or = 6.5% Performed By: #### 4 548-4 #### ALENA Paredes ([id number]) [facility] ([facility]) [address] [place] [address]33 Hemoglobin A1c/Hemoglobin.to alcira 07-07-2024 HbA1c (Bld) [Mass fraction] 7.9 % High see below [facility] Comment on above: Order Comment: Diagn osis of Diabetes-Adults Non-Diabetic: < or = 5.6% Increased risk for developing diabetes: 5.7-6.4% Diagnostic of diabetes: > or = 6.5% Performed By: #### 4 548-4 #### ALENA Paredes ([id number]) [facility] ([facility]) [address] [place] [address] Phosphateon 07-07-2024 Phosphate [Mass/Vol] 3.8 mg/dL Normal 2.5-4.9 [facility] Comment on above: Result Comment: The performance characteristics of phosphorus testing in heparinized plasma have been validated by the individual laboratory site where testing is performed. Testing on heparinized plasma is not approved by the FDA; however, such approval is not necessary. Performed By: #### 2 777-1 #### MAGGI PARNELL ([id number]) [facility] [address] [place] [address] Thyrotropinon 07-07-2024 TSH Qn 0.85 m[IU]/L Normal 0.44-3.98 [facility] Comment on above: Order Comment: TSH t esting is performed using different testing methodology at [facility] than at other [facility]. Direct result comparisons should only be made within the same method. Performed By: #### 3 016-3 #### MAGGI PARNELL ([id number]) [facility]) [facility] [place] [id number] Thyroxine.freeon 07-07-2024 Free T4 [Mass/Vol] 1.01 ng/dL Normal 0.61-1.12 [facility] Comment on above: Order Comment: Thyro xine Free testing is performed using different testing methodology at [facility] than at other [facility]. Direct result comparisons should only be [...] By: #### 3 024-7 #### MAGGI PARNELL ([id number]) [facility]) [address] [place] [address] 63843 Urateon 07-07-2024 Urate [Mass/Vol] 5.7 mg/dL Normal 4.0-7.5 [facility] Comment on above: Result Comment: Hortencia puncture immediately after or during the administration of Metamizole may lead to falsely low results. Testing should be performed immediately prior to Metamizole dosing. Performed By: #### 3 084-1 #### MAGGI PARNELL ([id number]) [facility]) [address] [place] [address] 73332 PT D/C Summary (1)on 024 PT D/C Summary (1) Normal [facility] Albumin/Creatinineon 024 Albumin/Creatinine DL <= 20 mg/L (U) [Mass ratio] 221.6 ug/mg Creat High <30.0 [facility] Comment on above: Performed By: #### 1 4959-1 #### ALENA Paredes ([id number]) [facility] ([facility]) [address] [place] [address]448 Albumin/Creatinine DL <= 20 mg/L (U) [Mass ratio]on 02-07-2024 Albumin DL <= 20 mg/L (U) [Mass/Vol] 219.8 mg/L Normal Not established [facility] Comment on above: Performed By: #### 1 4959-1 #### ALENA Paredes ([id number]) [facility] ([facility]) [address] [place] [address] Creatinine (U) [Mass/Vol] 99.2 mg/dL Normal 20.0-370.0 [facility] Comment on above: Performed By: #### 1 4959-1 #### ALENA Paredes ([id number]) [facility] ([facility]) [id number] [place] [address] Comprehensive metabolic 2000 panelon 02-07-2024 Albumin BCP dye [Mass/Vol] 4.0 g/dL Normal 3.4-5.0 [facility] Comment on above: Performed By: #### 2 4323-8 #### MAGGI PARNELL ([id number]) [facility] [place] [address] ALP [Catalytic activity/Vol] 77 U/L Normal 33-136 [facility] Comment on above: Performed By: #### 2 432-8 #### MAGGI PARNELL ([id number]) [facility] [address] [place] [id number] ALT With P-5'-P [Catalytic activity/Vol] 7 U/L Low 10-52 [facility] Comment on above: Result Comment: Twila ents treated with Sulfasalazine may generate falsely decreased results for ALT. Performed By: #### 2 4323-8 #### MAGGI PARNELL ([id number]) [facility] [address] [place] [address] Anion gap [Moles/Vol] 12 mmol/L Normal 10-20 [facility] Comment on above: Performed By: #### 2 4323-8 #### MAGGI PARNELL ([id number]) [facility] [address] [place] [address] AST With P-5'-P [Catalytic activity/Vol] 14 U/L Normal 9-39 [facility] Comment on above: Performed By: #### 2 4323-8 #### MAGGI PARNELL ([id number]) [facility]) [facility] [place] [address] Bilirubin [Mass/Vol] 0.4 mg/dL Normal 0.0-1.2 [facility] Comment on above: Performed By: #### 2 4323-8 #### MAGGI PARNELL ([id number]) [facility] [address] [place] [address] Calcium [Mass/Vol] 9.2 mg/dL Normal 8.6-10.3 [facility] Comment on above: Performed By: #### 2 4323-8 #### MAGGI PARNELL ([id number]) [facility] [place] [address] Chloride [Moles/Vol] 105 mmol/L Normal 98-107 [facility] Comment on above: Performed By: #### 2 4323-8 #### MAGGI PARNELL ([id number]) [facility] [address] [place] [address] CO2 [Moles/Vol] 29 mmol/L Normal 21-32 [facility] Comment on above: Performed By: #### 2 4323-8 #### MAGGI PARNELL ([id number]) [facility] [address] [place] [address] Creatinine [Mass/Vol] 1.92 mg/dL High 0.50-1.30 [facility] Comment on above: Performed By: #### 2 4323-8 #### MAGGI PARNELL ([id number]) [facility] [address] [place] [address] Glomerular filtration rate/1.73 sq M.predicted 35 mL/min/1.73m*2 Low >60 [facility] Comment on above: Result Comment: Calc ulations of estimated GFR are performed using the 2020 CKD-EPI Study Refit equation without the race variable for the IDMS-Traceable creatinine methods. https://jasn.asnjournals.org/content/early//ASN.20 80494373 Performed By: #### 2 4323-8 #### MAGGI PARNELL ([id number]) [facility] [address] [place] [address] Glucose [Mass/Vol] 81 mg/dL Normal 74-99 [facility] Comment on above: Performed By: #### 2 4323-8 #### MAGGI PARNELL ([id number]) [facility] [address] [place] [address] Potassium [Moles/Vol] 4.5 mmol/L Normal 3.5-5.3 [facility] Comment on above: Performed By: #### 2 4323-8 #### MAGGI PARNELL ([id number]) [facility] [address] [place] [address] Protein [Mass/Vol] 6.4 g/dL Normal 6.4-8.2 [facility] Comment on above: Performed By: #### 2 4323-8 #### MAGGI PARNELL ([id number]) [facility] [address] [place] [address] Sodium [Moles/Vol] 141 mmol/L Normal 136-145 [facility] Comment on above: Performed By: #### 2 4323-8 #### MAGGI PARNELL ([id number]) [facility] [address] [place] [address] Urea nitrogen [Mass/Vol] 29 mg/dL High 6-23 [facility] Comment on above: Performed By: #### 2 4323-8 #### MAGGI PARNELL ([id number]) [facility] [address] [place] [address] Basophil percentageOrdered B y: Ryley Jeter on 12-15-2023 Chloride [Moles/Vol] 109 mmol/L 98-107 [facility] Glucose [Mass/Vol] 126 mg/dL 74-106 [facility] Comment on above: Fasting Glucose resu lt greater than or equal to 126 mg/dL suggests DIABETES MELLITUS per A.D.A. criteria. Potassium [Moles/Vol] 4.1 mmol/L 3.5-5.1 [facility] Sodium [Moles/Vol] 140 mmol/L 136-145 [facility] Laboratory - Chemistry and C hemistry - challengeOrdered By: Ryley Jeter on 12-15-2023 CO2 [Moles/Vol] 29.0 mmol/L 21.0-32.0 [facility] Urea nitrogen/Creatinine [Mass ratio] 14.9 mg/mg 10-20 [facility] No Panel InformationOrdered By: Ryley Jeter on 12-15-2023 Estimated GFR (MDRD) Amer 45 mL/min >60 [facility] Comment on above: GFR Calc Estimated GFR (MDRD) Non-Af Amer 37 mL/min >60 [facility] Comment on above: Non- GFR Calc Serum or plasma calcium nikkie urement (mass/volume)Ordered By: Ryley Jeter on 12-15-2023 Calcium [Mass/Vol] 9.4 mg/dL 8.5-10.1 [facility] Serum or plasma creatinine m easurement (mass/volume)Ordered By: Ryley Jeter on 12-15-2023 Creatinine [Mass/Vol] 1.88 mg/dL 0.70-1.30 [facility] Comment on above: The validity of the calculated GFR & GFRAA in patients over 70 years has not been determined. Clinical correlation is essential. Serum or plasma urea nitroge n measurement (mass/volume)Ordered By: Ryley Jetre on 12-15-2023 Urea nitrogen [Mass/Vol] 28 mg/dL 7-18 [facility] Thin prep Papanicolaou smear with manual screeningOrdered By: Ryley Jeter on 12-15-2023 Thin prep Papanicolaou smear with manual screening 2 5-15 [facility] APTTOrdered By: Burton lr on 12-01-2023 aPTT Coag (Bld) [Time] 35 s High [facility] Basic metabolic 2000 panelon 12-01-2023 Anion gap [Moles/Vol] 10 mmol/L 10 - 2 0 mmol/L [facility] Calcium [Mass/Vol] 8.9 mg/dL 8.4 - 10. 2 mg/dL [facility] Chloride [Moles/Vol] 105 mmol/L 98 - 10 8 mmol/L [facility] Creatinine [Mass/Vol] 1.76 mg/dL High 0.80 - 1.30 mg/dL [facility] GFR/1.73 sq M.predicted CKD-EPI (S/P/Bld) [Vol rate/Area] 39 Low - PINF [facility] Glucose [Mass/Vol] 82 mg/dL 65 - 99 mg/dL [facility]3 [Moles/Vol] 30 mmol/L 21 - 32 mmol/L [facility] Interpretation and review of laboratory results Abnormal [facility] Potassium [Moles/Vol] 3.4 mmol/L Low 3.5 - 5.1 mmol/L [facility] Sodium [Moles/Vol] 142 mmol/L 135 - 145 mmol/L [facility] Urea nitrogen [Mass/Vol] 26 mg/dL High 8 - 25 mg/d L [facility] Urea nitrogen/Creatinine [Mass ratio] 14.8 mg/mg 10.0 - 20.0 [facility] CBC Auto Differentialon 11-03 Basophils (Bld) [#/Vol] 0.06 10*3/uL [facility] Basophils/100 WBC (Bld) 0.7 % [facility] Eosinophils (Bld) [#/Vol] 0.61 10*3/uL High [facility] Eosinophils/100 WBC (Bld) 7.4 % [facility] Erythrocyte distribution width (RBC) [Entitic vol] 13.3 % 11.6 - 14.8 % [facility] Hematocrit (Bld) [Volume fraction] 36.6 % Low 41.0 - 53.0 % [facility] Hemoglobin (Bld) [Mass/Vol] 12.0 g/dL Low 13.5 - 17.5 g/dL [facility] Immature granulocytes (Bld) [#/Vol] 0.02 10*3/uL [facility] Immature granulocytes/100 WBC (Bld) 0.20 % [facility] Interpretation and review of laboratory results Abnormal [facility] Lymphocytes (Bld) [#/Vol] 1.32 10*3/uL [facility] Lymphocytes/100 WBC (Bld) 16.1 % [facility] MCH (RBC) [Entitic mass] 30.5 pg 26. 0 - 34.0 pg [facility] MCHC (RBC) [Mass/Vol] 32.8 g/dL 31.0 - 37.0 g/dL [facility] MCV (RBC) [Entitic vol] 92.9 fL 80.0 - 100.0 fL [facility] Monocytes (Bld) [#/Vol] 0.96 10*3/uL High [facility] Monocytes/100 WBC (Bld) 11.7 % [facility] Neutrophils (Bld) [#/Vol] 5.25 10*3/uL [facility] Neutrophils/100 WBC (Bld) 63.9 % [facility] Nucleated RBC (Bld) [#/Vol] 0.00 10*3/uL [facility] Nucleated RBC/100 WBC (Bld) [Ratio] 0.0 % [facility] Platelet mean volume (Bld) [Entitic vol] 12.4 fL 9.4 - 12.4 fL [facility] Platelets (Bld) [#/Vol] 115 10*3/uL Low [facility] RBC (Bld) [#/Vol] 3.94 10*6/uL Low [facility] ealth WBC (Bld) [#/Vol] 8.22 10*3/uL [facility] Glucose (Bld) [Mass/Vol]on 0 12-01-2023 Glucose [Mass/Vol] 151 mg/dL High 65 - 99 mg/dL [facility] Interpretation and review of laboratory results Abnormal [facility] Glucose [Mass/Vol] 472 mg/dL Critically high 65 - 99 mg/d L [facility] Interpretation and review of laboratory results Abnormal [facility] Glucose [Mass/Vol] 454 mg/dL Critically high 65 - 99 mg/d L [facility] Interpretation and review of laboratory results Abnormal [facility] Glucose [Mass/Vol] 87 mg/dL 65 - 99 mg/dL [facility] Interpretation and review of laboratory results Normal [facility] Magnesium Levelon 12-01-2023 Magnesium [Mass/Vol] 2.1 mg/dL 1.6 - 2 .4 mg/dL [facility] Magnesium [Mass/Vol]on 12-01 Interpretation and review of laboratory results Normal [facility] aPTT Coag (Bld) [Time]Ordere d By: Burton Zendejas on 12-01-2023 Interpretation and review of laboratory results Abnormal [facility] APTTOrdered By: Zoila Marcano e on 11-30-2023 aPTT Coag (Bld) [Time] 35 s High [facility] Basic metabolic 2000 panelon 11-30-2023 Anion gap [Moles/Vol] 9 mmol/L Low 10 - 2 0 mmol/L [facility] Calcium [Mass/Vol] 8.6 mg/dL 8.4 - 10. 2 mg/dL [facility] Chloride [Moles/Vol] 104 mmol/L 98 - 10 8 mmol/L [facility] Creatinine [Mass/Vol] 1.77 mg/dL High 0.80 - 1.30 mg/dL [facility] GFR/1.73 sq M.predicted CKD-EPI (S/P/Bld) [Vol rate/Area] 39 Low - PINF [facility] Glucose [Mass/Vol] 322 mg/dL High 65 - 99 mg/dL [facility] HCO3 [Moles/Vol] 29 mmol/L 21 - 32 mmol/L [facility] Interpretation and review of laboratory results Abnormal [facility] Potassium [Moles/Vol] 3.8 mmol/L 3.5 - 5.1 mmol/L [facility] Sodium [Moles/Vol] 138 mmol/L 135 - 145 mmol/L [facility] Urea nitrogen [Mass/Vol] 30 mg/dL High 8 - 25 mg/d L [facility] Urea nitrogen/Creatinine [Mass ratio] 16.9 mg/mg 10.0 - 20.0 [facility] CBC Auto Differentialon 11-03 Basophils (Bld) [#/Vol] 0.08 10*3/uL [facility] Basophils/100 WBC (Bld) 0.9 % [facility] Eosinophils (Bld) [#/Vol] 0.71 10*3/uL High [facility] Eosinophils/100 WBC (Bld) 8.0 % [facility] Erythrocyte distribution width (RBC) [Entitic vol] 13.5 % 11.6 - 14.8 % [facility] alth Hematocrit (Bld) [Volume fraction] 35.9 % Low 41.0 - 53.0 % [facility] Hemoglobin (Bld) [Mass/Vol] 11.8 g/dL Low 13.5 - 17.5 g/dL [facility] Immature granulocytes (Bld) [#/Vol] 0.03 10*3/uL [facility] Immature granulocytes/100 WBC (Bld) 0.30 % [facility] Interpretation and review of laboratory results Abnormal [facility] Lymphocytes (Bld) [#/Vol] 1.18 10*3/uL [facility] Lymphocytes/100 WBC (Bld) 13.3 % [facility] MCH (RBC) [Entitic mass] 30.5 pg 26. 0 - 34.0 pg [facility] MCHC (RBC) [Mass/Vol] 32.9 g/dL 31.0 - 37.0 g/dL [facility] MCV (RBC) [Entitic vol] 92.8 fL 80.0 - 100.0 fL [facility] Monocytes (Bld) [#/Vol] 0.84 10*3/uL [facility] Monocytes/100 WBC (Bld) 9.4 % [facility] Neutrophils (Bld) [#/Vol] 6.05 10*3/uL [facility] Neutrophils/100 WBC (Bld) 68.1 % [facility] Nucleated RBC (Bld) [#/Vol] 0.00 10*3/uL [facility] Nucleated RBC/100 WBC (Bld) [Ratio] 0.0 % [facility] Platelet mean volume (Bld) [Entitic vol] 12.1 fL 9.4 - 12.4 fL [facility] Platelets (Bld) [#/Vol] 120 10*3/uL Low [facility] RBC (Bld) [#/Vol] 3.87 10*6/uL Low [facility] ealth WBC (Bld) [#/Vol] 8.89 10*3/uL [facility] ealth [facility] CT Chest WO contraston 11-30 [employer] RIS [employer] RIS [facility] CT Chest WO contrastOrdered By: Alice Kaminski on 11-30-2023 [facility] Work Phone: Echocardiogram completeon Aortic valve area 2.69741 cm [facility] AV mean gradient 3.05478 mmHg [facility] AV peak gradient 6.62852 mmHg [facility] EF 63.3016 % [facility] FUJI SYNAPSE CV [facility] Electrocardiogram, 12-leadon 11-30-2023 Atrial Rate 97 BPM [facility] P [place] 77 degrees [facility] P-R Interval 152 ms [facility] Q-T Interval 376 ms [facility] QRS Duration 76 ms [facility] QTC Calculation (Bezet) 477 ms [facility] R [place] 72 degrees [facility] T [place] 51 degrees [facility] Ventricular Rate 97 BPM [facility] MUSE [facility] Glucose (Bld) [Mass/Vol]on 0 11-30-2023 Glucose [Mass/Vol] 190 mg/dL High 65 - 99 mg/dL [facility] Interpretation and review of laboratory results Abnormal [facility] Glucose [Mass/Vol] 103 mg/dL High 65 - 99 mg/dL [facility] Interpretation and review of laboratory results Abnormal [facility] Magnesium Levelon 11-30-2023 Magnesium [Mass/Vol] 2.2 mg/dL 1.6 - 2 .4 mg/dL [facility] Magnesium [Mass/Vol]on 11-30 Interpretation and review of laboratory results Normal [facility] No Panel Informationon 11-30 [facility] aPTT Coag (Bld) [Time]Ordere d By: Zoila Ruiz on 11-30-2023 Interpretation and review of laboratory results Abnormal [facility] APTTon 11-29-2023 aPTT Coag (Bld) [Time] 38 s High [facility] APTT Heparin Coverageon 11-02 aPTT Coag (Bld) [Time] 98 s High [facility] Interpretation and review of laboratory results Abnormal [facility] APTT Heparin CoverageOrdered By: Tania Escobedo on 11-29-2023 aPTT Coag (Bld) [Time] Critically high [facility] Interpretation and review of laboratory results Abnormal [facility] Bacteria identified Aer cx N om (Sput)Ordered By: Franco Armenta on 11-29-2023 Microscopic observation Gram stain Nom (Sput) Few WBC [facility] Microscopic observation Gram stain Nom (Sput) Few Epithelial Cells [facility] ealt Microscopic observation Gram stain Nom (Sput) Positive [facility] Microscopic observation Gram stain Nom (Sput) Rare Mixed [facility] Basic metabolic 2000 panelon 11-29-2023 Anion gap [Moles/Vol] 7 mmol/L Low 10 - 2 0 mmol/L [facility] Calcium [Mass/Vol] 8.4 mg/dL 8.4 - 10. 2 mg/dL [facility] Chloride [Moles/Vol] 106 mmol/L 98 - 10 8 mmol/L [facility] Creatinine [Mass/Vol] 1.91 mg/dL High 0.80 - 1.30 mg/dL [facility] GFR/1.73 sq M.predicted CKD-EPI (S/P/Bld) [Vol rate/Area] 35 Low - PINF [facility] Glucose [Mass/Vol] 234 mg/dL High 65 - 99 mg/dL [facility] HCO3 [Moles/Vol] 28 mmol/L 21 - 32 mmol/L [facility] Interpretation and review of laboratory results Abnormal [facility] Potassium [Moles/Vol] 4.0 mmol/L 3.5 - 5.1 mmol/L [facility] Sodium [Moles/Vol] 137 mmol/L 135 - 145 mmol/L [facility] Urea nitrogen [Mass/Vol] 34 mg/dL High 8 - 25 mg/d L [facility] Urea nitrogen/Creatinine [Mass ratio] 17.8 mg/mg 10.0 - 20.0 [facility] CBC Auto Differentialon 11-02 Basophils (Bld) [#/Vol] 0.10 10*3/uL [facility] Basophils/100 WBC (Bld) 0.9 % [facility] Eosinophils (Bld) [#/Vol] 0.48 10*3/uL [facility] Eosinophils/100 WBC (Bld) 4.4 % [facility] Erythrocyte distribution width (RBC) [Entitic vol] 14.0 % 11.6 - 14.8 % [facility] Hematocrit (Bld) [Volume fraction] 32.8 % Low 41.0 - 53.0 % [facility] Hemoglobin (Bld) [Mass/Vol] 10.7 g/dL Low 13.5 - 17.5 g/dL [facility] Immature granulocytes (Bld) [#/Vol] 0.05 10*3/uL [facility] Immature granulocytes/100 WBC (Bld) 0.50 % [facility] Interpretation and review of laboratory results Abnormal [facility] Lymphocytes (Bld) [#/Vol] 1.92 10*3/uL [facility] Lymphocytes/100 WBC (Bld) 17.7 % [facility] MCH (RBC) [Entitic mass] 30.6 pg 26. 0 - 34.0 pg [facility] MCHC (RBC) [Mass/Vol] 32.6 g/dL 31.0 - 37.0 g/dL [facility] MCV (RBC) [Entitic vol] 93.7 fL 80.0 - 100.0 fL [facility] Monocytes (Bld) [#/Vol] 1.02 10*3/uL High [facility] Monocytes/100 WBC (Bld) 9.4 % [facility] Neutrophils (Bld) [#/Vol] 7.26 10*3/uL High [facility] Neutrophils/100 WBC (Bld) 67.1 % [facility] Nucleated RBC (Bld) [#/Vol] 0.00 10*3/uL [facility] Nucleated RBC/100 WBC (Bld) [Ratio] 0.0 % [facility] Platelet mean volume (Bld) [Entitic vol] 12.1 fL 9.4 - 12.4 fL [facility] Platelets (Bld) [#/Vol] 130 10*3/uL Low [facility] RBC (Bld) [#/Vol] 3.50 10*6/uL Low [facility] ealth WBC (Bld) [#/Vol] 10.83 10*3/uL [facility] CT Chest WO contraston 11-29 Radiology Study observation (narrative) [facility] Glucose (Bld) [Mass/Vol]on 0 11-29-2023 Glucose [Mass/Vol] 174 mg/dL High 65 - 99 mg/dL [facility] Interpretation and review of laboratory results Abnormal [facility] Glucose [Mass/Vol] 266 mg/dL High 65 - 99 mg/dL [facility] Interpretation and review of laboratory results Abnormal [facility] HbA1c (Bld) [Mass fraction]O rdered By: Lidia Ruff on 11-29-2023 Average glucose Estimated from glycated hemoglobin (Bld) [Mass/Vol] 174 mg/dL High 68 - 114 mg/dL [facility] Interpretation and review of laboratory results Abnormal [facility] Hemoglobin [id number] By: Davina Ruff on 11-29-2023 HbA1c (Bld) [Mass fraction] 7.7 % High 4.0 - 5.6 % [facility] Magnesium Levelon 11-29-2023 Magnesium [Mass/Vol] 2.2 mg/dL 1.6 - 2 .4 mg/dL [facility] Magnesium [Mass/Vol]on 11-29 Interpretation and review of laboratory results Normal [facility] No Panel Informationon 11-29 [facility] Sputum Aerobic CultureOrdere d By: Franco Armenta on 11-29-2023 Bacteria identified Aer cx Nom (Sput) Normal [place]yler After 48 Hours [facility] aPTT Coag (Bld) [Time]on Interpretation and review of laboratory results Abnormal [facility] APTTon 11-28-2023 aPTT Coag (Bld) [Time] 102 s High [facility] Basic metabolic 2000 panelon 11-28-2023 Anion gap [Moles/Vol] 13 mmol/L 10 - 2 0 mmol/L [facility] Calcium [Mass/Vol] 9.0 mg/dL 8.4 - 10. 2 mg/dL [facility] Chloride [Moles/Vol] 110 mmol/L High 98 - 10 8 mmol/L [facility] Creatinine [Mass/Vol] 1.99 mg/dL High 0.80 - 1.30 mg/dL [facility] GFR/1.73 sq M.predicted CKD-EPI (S/P/Bld) [Vol rate/Area] 34 Low - PINF [facility] Glucose [Mass/Vol] 183 mg/dL High 65 - 99 mg/dL [facility] HCO3 [Moles/Vol] 23 mmol/L 21 - 32 mmol/L [facility] Interpretation and review of laboratory results Abnormal [facility] Potassium [Moles/Vol] 4.3 mmol/L 3.5 - 5.1 mmol/L [facility] Sodium [Moles/Vol] 142 mmol/L 135 - 145 mmol/L [facility] Urea nitrogen [Mass/Vol] 33 mg/dL High 8 - 25 mg/d L [facility] Urea nitrogen/Creatinine [Mass ratio] 16.6 mg/mg 10.0 - 20.0 [facility] Anion gap [Moles/Vol] 9 mmol/L Low 10 - 2 0 mmol/L [facility] Calcium [Mass/Vol] 8.8 mg/dL 8.4 - 10. 2 mg/dL [facility] Chloride [Moles/Vol] 111 mmol/L High 98 - 10 8 mmol/L [facility] Creatinine [Mass/Vol] 2.03 mg/dL High 0.80 - 1.30 mg/dL [facility] GFR/1.73 sq M.predicted CKD-EPI (S/P/Bld) [Vol rate/Area] 33 Low - PINF [facility] Glucose [Mass/Vol] 160 mg/dL High 65 - 99 mg/dL [facility] HCO3 [Moles/Vol] 27 mmol/L 21 - 32 mmol/L [facility] Interpretation and review of laboratory results Abnormal [facility] Potassium [Moles/Vol] 4.3 mmol/L 3.5 - 5.1 mmol/L [facility] Sodium [Moles/Vol] 143 mmol/L 135 - 145 mmol/L [facility] Urea nitrogen [Mass/Vol] 34 mg/dL High 8 - 25 mg/d L [facility] Urea nitrogen/Creatinine [Mass ratio] 16.7 mg/mg 10.0 - 20.0 [facility] Anion gap [Moles/Vol] 10 mmol/L 10 - 2 0 mmol/L [facility] Calcium [Mass/Vol] 8.7 mg/dL 8.4 - 10. 2 mg/dL [facility] Chloride [Moles/Vol] 112 mmol/L High 98 - 10 8 mmol/L [facility] Creatinine [Mass/Vol] 2.03 mg/dL High 0.80 - 1.30 mg/dL [facility] GFR/1.73 sq M.predicted CKD-EPI (S/P/Bld) [Vol rate/Area] 33 Low - PINF [facility] Glucose [Mass/Vol] 119 mg/dL High 65 - 99 mg/dL [facility] HCO3 [Moles/Vol] 24 mmol/L 21 - 32 mmol/L [facility] Interpretation and review of laboratory results Abnormal [facility] Potassium [Moles/Vol] 3.9 mmol/L 3.5 - 5.1 mmol/L [facility] Sodium [Moles/Vol] 142 mmol/L 135 - 145 mmol/L [facility] Urea nitrogen [Mass/Vol] 35 mg/dL High 8 - 25 mg/d L [facility] Urea nitrogen/Creatinine [Mass ratio] 17.2 mg/mg 10.0 - 20.0 [facility] Beta hydroxybutyrate [Moles/ Vol]on 11-28-2023 Interpretation and review of laboratory results Abnormal [facility] Interpretation and review of laboratory results Abnormal [facility] Beta-Hydroxybutyrateon 11-28 Beta hydroxybutyrate [Moles/Vol] 0.8 mmol/L High 0.0 - 0.3 mmol/L [facility] Beta hydroxybutyrate [Moles/Vol] 0.4 mmol/L High 0.0 - 0.3 mmol/L [facility] Beta hydroxybutyrate [Moles/Vol] 0.6 mmol/L High 0.0 - 0.3 mmol/L [facility] CBC Auto Differentialon 11-02 Basophils (Bld) [#/Vol] 0.07 10*3/uL [facility] Basophils/100 WBC (Bld) 0.5 % [facility] Eosinophils (Bld) [#/Vol] 0.09 10*3/uL [facility] Eosinophils/100 WBC (Bld) 0.6 % [facility] Erythrocyte distribution width (RBC) [Entitic vol] 14.3 % 11.6 - 14.8 % [facility] alth Hematocrit (Bld) [Volume fraction] 33.6 % Low 41.0 - 53.0 % [facility] Hemoglobin (Bld) [Mass/Vol] 10.8 g/dL Low 13.5 - 17.5 g/dL [facility] Immature granulocytes (Bld) [#/Vol] 0.05 10*3/uL [facility] Immature granulocytes/100 WBC (Bld) 0.40 % [facility] Interpretation and review of laboratory results Abnormal [facility] Lymphocytes (Bld) [#/Vol] 2.69 10*3/uL [facility] Lymphocytes/100 WBC (Bld) 18.9 % [facility] MCH (RBC) [Entitic mass] 30.4 pg 26. 0 - 34.0 pg [facility] MCHC (RBC) [Mass/Vol] 32.1 g/dL 31.0 - 37.0 g/dL [facility] MCV (RBC) [Entitic vol] 94.6 fL 80.0 - 100.0 fL [facility] Monocytes (Bld) [#/Vol] 1.26 10*3/uL High [facility] Monocytes/100 WBC (Bld) 8.9 % [facility] Neutrophils (Bld) [#/Vol] 10.06 10*3/uL High [facility] Neutrophils/100 WBC (Bld) 70.7 % [facility] Nucleated RBC (Bld) [#/Vol] 0.00 10*3/uL [facility] Nucleated RBC/100 WBC (Bld) [Ratio] 0.0 % [facility] Platelet mean volume (Bld) [Entitic vol] 11.9 fL 9.4 - 12.4 fL [facility] Platelets (Bld) [#/Vol] 151 10*3/uL [facility] RBC (Bld) [#/Vol] 3.55 10*6/uL Low [facility] WBC (Bld) [#/Vol] 14.22 10*3/uL [facility] CRP [Mass/Vol]on 11-28-2023 Interpretation and review of laboratory results Abnormal [facility] CRP, Inflammationon 11-28-19 CRP [Mass/Vol] 11.6 mg/L [facility]/L [facility] D-Dimer, Quantitativeon 11-02 Fibrin D-dimer FEU (PPP) [Mass/Vol] 1.32 High [facility] Interpretation and review of laboratory results Abnormal [facility] Glucose (Bld) [Mass/Vol]on 0 11-28-2023 Glucose [Mass/Vol] 222 mg/dL High 65 - 99 mg/dL [facility] Interpretation and review of laboratory results Abnormal [facility] Glucose [Mass/Vol] 182 mg/dL High 65 - 99 mg/dL [facility] Interpretation and review of laboratory results Abnormal [facility] Glucose [Mass/Vol] 286 mg/dL High 65 - 99 mg/dL [facility] Interpretation and review of laboratory results Abnormal [facility] Glucose [Mass/Vol] 209 mg/dL High 65 - 99 mg/dL [facility] Interpretation and review of laboratory results Abnormal [facility] Glucose [Mass/Vol] 167 mg/dL High 65 - 99 mg/dL [facility] Interpretation and review of laboratory results Abnormal [facility] LDHon 11-28-2023 LDH Lactate to pyruvate reaction [Catalytic activity/Vol] 299 U/L High 100 - 250 U/L [facility] Magnesium Levelon 11-28-2023 Magnesium [Mass/Vol] 2.5 mg/dL High 1.6 - 2 .4 mg/dL [facility] Magnesium [Mass/Vol] 2.6 mg/dL High 1.6 - 2 .4 mg/dL [facility] Magnesium [Mass/Vol] 2.2 mg/dL 1.6 - 2 .4 mg/dL [facility] Magnesium [Mass/Vol]on 11-28 Interpretation and review of laboratory results Abnormal [facility] Interpretation and review of laboratory results Abnormal [facility] Interpretation and review of laboratory results Normal [facility] No Panel Informationon 11-28 Interpretation and review of laboratory results Abnormal [facility] Phosphate [Mass/Vol]on 11-28 Interpretation and review of laboratory results Normal [facility] Interpretation and review of laboratory results Abnormal [facility] Interpretation and review of laboratory results Abnormal [facility] Phosphoruson 11-28-2023 Phosphate [Mass/Vol] 3.6 mg/dL 2.3 - 3 .7 mg/dL [facility] Phosphate [Mass/Vol] 3.8 mg/dL High 2.3 - 3 .7 mg/dL [facility] Phosphate [Mass/Vol] 3.8 mg/dL High 2.3 - 3 .7 mg/dL [facility] aPTT Coag (Bld) [Time]on Interpretation and review of laboratory results Abnormal [facility] APTTOrdered By: Becky Mercado on 11-27-2023 aPTT Coag (Bld) [Time] 78 s High [facility] APTTOrdered By: Anjali Harmtann on 11-27-2023 aPTT Coag (Bld) [Time] 66 s High [facility] APTT Heparin CoverageOrdered By: Yesenia Cardona on 11-27-2023 aPTT Coag (Bld) [Time] 87 s High [facility] Interpretation and review of laboratory results Abnormal [facility] Basic metabolic 2000 panelon 11-27-2023 Anion gap [Moles/Vol] 9 mmol/L Low 10 - 2 0 mmol/L [facility] Calcium [Mass/Vol] 8.7 mg/dL 8.4 - 10. 2 mg/dL [facility] Chloride [Moles/Vol] 113 mmol/L High 98 - 10 8 mmol/L [facility] Creatinine [Mass/Vol] 2.24 mg/dL High 0.80 - 1.30 mg/dL [facility] GFR/1.73 sq M.predicted CKD-EPI (S/P/Bld) [Vol rate/Area] 29 Low - PINF [facility] Glucose [Mass/Vol] 168 mg/dL High 65 - 99 mg/dL [facility] HCO3 [Moles/Vol] 25 mmol/L 21 - 32 mmol/L [facility] Interpretation and review of laboratory results Abnormal [facility] Potassium [Moles/Vol] 3.7 mmol/L 3.5 - 5.1 mmol/L [facility] Sodium [Moles/Vol] 143 mmol/L 135 - 145 mmol/L [facility] Urea nitrogen [Mass/Vol] 37 mg/dL High 8 - 25 mg/d L [facility] Urea nitrogen/Creatinine [Mass ratio] 16.5 mg/mg 10.0 - 20.0 [facility] Anion gap [Moles/Vol] 9 mmol/L Low 10 - 2 0 mmol/L [facility] Calcium [Mass/Vol] 9.0 mg/dL 8.4 - 10. 2 mg/dL [facility] Chloride [Moles/Vol] 113 mmol/L High 98 - 10 8 mmol/L [facility] Creatinine [Mass/Vol] 2.24 mg/dL High 0.80 - 1.30 mg/dL [facility] GFR/1.73 sq M.predicted CKD-EPI (S/P/Bld) [Vol rate/Area] 29 Low - PINF [facility] Glucose [Mass/Vol] 153 mg/dL High 65 - 99 mg/dL [facility] HCO3 [Moles/Vol] 24 mmol/L 21 - 32 mmol/L [facility] Interpretation and review of laboratory results Abnormal [facility] Potassium [Moles/Vol] 4.0 mmol/L 3.5 - 5.1 mmol/L [facility] Sodium [Moles/Vol] 142 mmol/L 135 - 145 mmol/L [facility] Urea nitrogen [Mass/Vol] 39 mg/dL High 8 - 25 mg/d L [facility] Urea nitrogen/Creatinine [Mass ratio] 17.4 mg/mg 10.0 - 20.0 [facility] Anion gap [Moles/Vol] 13 mmol/L 10 - 2 0 mmol/L [facility] Calcium [Mass/Vol] 9.3 mg/dL 8.4 - 10. 2 mg/dL [facility] Chloride [Moles/Vol] 112 mmol/L High 98 - 10 8 mmol/L [facility] Creatinine [Mass/Vol] 2.26 mg/dL High 0.80 - 1.30 mg/dL [facility] GFR/1.73 sq M.predicted CKD-EPI (S/P/Bld) [Vol rate/Area] 29 Low - PINF [facility] Glucose [Mass/Vol] 114 mg/dL High 65 - 99 mg/dL [facility] HCO3 [Moles/Vol] 23 mmol/L 21 - 32 mmol/L [facility] Interpretation and review of laboratory results Abnormal [facility] Potassium [Moles/Vol] 3.7 mmol/L 3.5 - 5.1 mmol/L [facility] Sodium [Moles/Vol] 144 mmol/L 135 - 145 mmol/L [facility] Urea nitrogen [Mass/Vol] 42 mg/dL High 8 - 25 mg/d L [facility] Urea nitrogen/Creatinine [Mass ratio] 18.6 mg/mg 10.0 - 20.0 [facility] Anion gap [Moles/Vol] 13 mmol/L 10 - 2 0 mmol/L [facility] Calcium [Mass/Vol] 9.2 mg/dL 8.4 - 10. 2 mg/dL [facility] Chloride [Moles/Vol] 111 mmol/L High 98 - 10 8 mmol/L [facility] Creatinine [Mass/Vol] 2.35 mg/dL High 0.80 - 1.30 mg/dL [facility] GFR/1.73 sq M.predicted CKD-EPI (S/P/Bld) [Vol rate/Area] 27 Low - PINF [facility] Glucose [Mass/Vol] 340 mg/dL High 65 - 99 mg/dL [facility] HCO3 [Moles/Vol] 21 mmol/L 21 - 32 mmol/L [facility] Interpretation and review of laboratory results Abnormal [facility] Potassium [Moles/Vol] 3.4 mmol/L Low 3.5 - 5.1 mmol/L [facility] Sodium [Moles/Vol] 142 mmol/L 135 - 145 mmol/L [facility] Urea nitrogen [Mass/Vol] 42 mg/dL High 8 - 25 mg/d L [facility] Urea nitrogen/Creatinine [Mass ratio] 17.9 mg/mg 10.0 - 20.0 [facility] Basic metabolic 2000 panelOr dered By: Moody Hughes on 11-27-2023 Anion gap [Moles/Vol] 13 mmol/L 10 - 2 0 mmol/L [facility] Calcium [Mass/Vol] 8.9 mg/dL 8.4 - 10. 2 mg/dL [facility] Chloride [Moles/Vol] 107 mmol/L 98 - 10 8 mmol/L [facility] Creatinine [Mass/Vol] 2.24 mg/dL High 0.80 - 1.30 mg/dL [facility] GFR/1.73 sq M.predicted CKD-EPI (S/P/Bld) [Vol rate/Area] 29 Low - PINF [facility] Glucose [Mass/Vol] 523 mg/dL Critically high 65 - 99 mg/d L [facility] HCO3 [Moles/Vol] 21 mmol/L 21 - 32 mmol/L [facility] Interpretation and review of laboratory results Abnormal [facility] Potassium [Moles/Vol] 4.6 mmol/L 3.5 - 5.1 mmol/L [facility] Sodium [Moles/Vol] 136 mmol/L 135 - 145 mmol/L [facility] Urea nitrogen [Mass/Vol] 42 mg/dL High 8 - 25 mg/d L [facility] Urea nitrogen/Creatinine [Mass ratio] 18.8 mg/mg 10.0 - 20.0 [facility] Beta hydroxybutyrate [Moles/ Vol]on 11-27-2023 Interpretation and review of laboratory results Normal [facility] Interpretation and review of laboratory results Normal [facility] Interpretation and review of laboratory results Normal [facility] Interpretation and review of laboratory results Normal [facility] Beta-Hydroxybutyrateon 11-27 Beta hydroxybutyrate [Moles/Vol] mmol/L 0.0 - 0.3 mmol/L [facility] Beta hydroxybutyrate [Moles/Vol] 0.2 mmol/L 0.0 - 0.3 mmol/L [facility] Beta hydroxybutyrate [Moles/Vol] mmol/L 0.0 - 0.3 mmol/L [facility] Beta hydroxybutyrate [Moles/Vol] 0.2 mmol/L 0.0 - 0.3 mmol/L [facility] Beta hydroxybutyrate [Moles/Vol] 1.9 mmol/L High 0.0 - 0.3 mmol/L [facility] CBC Auto Differentialon 11-02 Basophils (Bld) [#/Vol] 0.04 10*3/uL [facility] Basophils/100 WBC (Bld) 0.2 % [facility] Eosinophils (Bld) [#/Vol] 0.00 10*3/uL [facility] Eosinophils/100 WBC (Bld) 0.0 % [facility] Erythrocyte distribution width (RBC) [Entitic vol] 14.0 % 11.6 - 14.8 % [facility] alth Hematocrit (Bld) [Volume fraction] 34.0 % Low 41.0 - 53.0 % [facility] Hemoglobin (Bld) [Mass/Vol] 11.1 g/dL Low 13.5 - 17.5 g/dL [facility] Immature granulocytes (Bld) [#/Vol] 0.11 10*3/uL [facility] Immature granulocytes/100 WBC (Bld) 0.50 % [facility] Interpretation and review of laboratory results Abnormal [facility] Lymphocytes (Bld) [#/Vol] 0.91 10*3/uL [facility] Lymphocytes/100 WBC (Bld) 3.8 % [facility] MCH (RBC) [Entitic mass] 30.9 pg 26. 0 - 34.0 pg [facility] MCHC (RBC) [Mass/Vol] 32.6 g/dL 31.0 - 37.0 g/dL [facility] MCV (RBC) [Entitic vol] 94.7 fL 80.0 - 100.0 fL [facility] Monocytes (Bld) [#/Vol] 1.21 10*3/uL High [facility] Monocytes/100 WBC (Bld) 5.1 % [facility] Neutrophils (Bld) [#/Vol] 21.42 10*3/uL High [facility] Neutrophils/100 WBC (Bld) 90.4 % [facility] Nucleated RBC (Bld) [#/Vol] 0.00 10*3/uL [facility] Nucleated RBC/100 WBC (Bld) [Ratio] 0.0 % [facility] Platelet mean volume (Bld) [Entitic vol] 11.9 fL 9.4 - 12.4 fL [facility] Platelets (Bld) [#/Vol] 220 10*3/uL [facility] RBC (Bld) [#/Vol] 3.59 10*6/uL Low [facility] WBC (Bld) [#/Vol] 23.69 10*3/uL [facility] CRP [Mass/Vol]on 11-27-2023 Interpretation and review of laboratory results Normal [facility] CRP, Inflammationon 11-27-19 24 CRP [Mass/Vol] mg/L NINF - 10.0 mg/L [facility] Clostridium difficile Testin gOrdered By: Nina Martinez on 11-27-2023 C. difficile Interpretation Negative [facility] Specimen Acceptability Acceptable [facility] ESR Westergren method (Bld) [Velocity]on 11-27-2023 ESR (Bld) [Velocity] 21 mm/h [facility] Interpretation and review of laboratory results Abnormal [facility] Glucose (Bld) [Mass/Vol]on 0 11-27-2023 Glucose [Mass/Vol] 85 mg/dL 65 - 99 mg/dL [facility] Interpretation and review of laboratory results Normal [facility] Glucose [Mass/Vol] 106 mg/dL High 65 - 99 mg/dL [facility] Interpretation and review of laboratory results Abnormal [facility] Glucose [Mass/Vol] 179 mg/dL High 65 - 99 mg/dL [facility] Interpretation and review of laboratory results Abnormal [facility] Glucose [Mass/Vol] 255 mg/dL High 65 - 99 mg/dL [facility] Interpretation and review of laboratory results Abnormal [facility] Glucose [Mass/Vol] 252 mg/dL High 65 - 99 mg/[facility] Interpretation and review of laboratory results Abnormal [facility] Glucose [Mass/Vol] 145 mg/dL High 65 - 99 mg/dL [facility] Interpretation and review of laboratory results Abnormal [facility] Glucose [Mass/Vol] 155 mg/dL High 65 - 99 mg/dL [facility] Interpretation and review of laboratory results Abnormal [facility] Glucose [Mass/Vol] 155 mg/dL High 65 - 99 mg/dL [facility] Interpretation and review of laboratory results Abnormal [facility] Glucose [Mass/Vol] 143 mg/dL High 65 - 99 mg/dL [facility] Interpretation and review of laboratory results Abnormal [facility] Glucose [Mass/Vol] 123 mg/dL High 65 - 99 mg/dL [facility] Interpretation and review of laboratory results Abnormal [facility] Glucose [Mass/Vol] 132 mg/dL High 65 - 99 mg/dL [facility] Interpretation and review of laboratory results Abnormal [facility] Glucose [Mass/Vol] 202 mg/dL High 65 - 99 mg/dL [facility] Interpretation and review of laboratory results Abnormal [facility] Glucose [Mass/Vol] 318 mg/dL High 65 - 99 mg/dL [facility] Interpretation and review of laboratory results Abnormal [facility] Glucose [Mass/Vol] 365 mg/dL High 65 - 99 mg/dL [facility] Interpretation and review of laboratory results Abnormal [facility] Glucose [Mass/Vol] 453 mg/dL Critically high 65 - 99 mg/d L [facility] Interpretation and review of laboratory results Abnormal [facility] Glucose [Mass/Vol] mg/dL Critically high 65 - 99 mg/d L [facility] Interpretation and review of laboratory results Abnormal [facility] Glucose [Mass/Vol] mg/dL Critically high 65 - 99 mg/d L [facility] Interpretation and review of laboratory results Abnormal [facility] Glucose [Mass/Vol] 498 mg/dL Critically high 65 - 99 mg/d L [facility] Interpretation and review of laboratory results Abnormal [facility] [place] 11-27-2023 Extra Tube Hold for add-ons. [facility] Comment on above: Auto resulted. [facility] HbA1c (Bld) [Mass fraction]O rdered By: Brent Carrillo on 11-27-2023 Average glucose Estimated from glycated hemoglobin (Bld) [Mass/Vol] 169 mg/dL High 68 - 114 mg/dL [facility] Interpretation and review of laboratory results Abnormal [facility] Hemoglobin [id number] By: Damaris Carrillo on 11-27-2023 HbA1c (Bld) [Mass fraction] 7.5 % High 4.0 - 5.6 % [facility] Hepatic function 2000 panelo n 11-27-2023 Albumin [Mass/Vol] 3.4 g/dL 3.2 - 5.2 g/dL [facility] ALP [Catalytic activity/Vol] 97 U/L 40 - 150 U/L [facility] ALT [Catalytic activity/Vol] 47 U/L 14 - 65 U/L [facility] AST [Catalytic activity/Vol] 74 U/L High 0-50 U/L [facility] Bilirubin [Mass/Vol] 0.7 mg/dL 0.0 - 1 .3 mg/dL [facility] Bilirubin.conjugated [Mass/Vol] 0.2 mg/dL 0.0 - 0.4 mg/dL [facility] Protein [Mass/Vol] 6.3 g/dL 6.0 - 8.0 g/dL [facility] Influenza virus A and B RNA and SARS-CoV-2 (COVID-19) N gene panel ALICE+probe (Resp)Ordered By: Esthela Albright on 11-27-2023 FLUAV RNA ALICE+probe Ql (Unsp spec) Not detected Not Detected [facility] FLUBV RNA ALICE+probe Ql (Unsp spec) Not detected Not Detected [facility] Interpretation and review of laboratory results Abnormal [facility] SARS-CoV-2 (COVID-19) RNA ALICE+probe Ql (Resp) Detected Abnormal Not Detected [facility] Lactate [Moles/Vol]on 2023 Interpretation and review of laboratory results Abnormal [facility] Interpretation and review of laboratory results Normal [facility] Lactic Acid, Plasmaon 2023 Lactate [Moles/Vol] 2.8 mmol/L High 0.6 - 2. 0 mmol/L [facility] Lactate [Moles/Vol] 2.0 mmol/L 0.6 - 2. 0 mmol/L [facility] Legionella Antigen, Urineon 11-27-2023 Interpretation and review of laboratory results Normal [facility] L. pneumophila Ag Ql (U) Negative Neg ative for Legionella antigen [facility] Lipid 1996 panelon Cholesterol [Mass/Vol] 130 mg/dL 100 - 199 mg/dL [facility] Cholesterol in HDL [Mass/Vol] 56 mg/dL 40 - 59 mg/dL [facility] Cholesterol in LDL [Mass/Vol] 61 mg/dL 10 - 130 mg/dL [facility] Cholesterol non HDL [Mass/Vol] 74 mg/dL [facility] Cholesterol.total/Cholest santos in HDL [Mass ratio] 2.3 {ratio} ratio [facility] Triglyceride [Mass/Vol] 67 mg/dL 30 - 150 mg/dL [facility] MRSA DNA Amplified Probeon 0 11-27-2023 MRSA DNA ALICE+probe Ql (Unsp spec) Negative Not Detected, MRSA NEGATIVE [facility] MRSA DNA ALICE+probe Ql (Unsp spec)on 11-27-2023 Interpretation and review of laboratory results Normal [facility] Magnesium Levelon 11-27-2023 Magnesium [Mass/Vol] 1.9 mg/dL 1.6 - 2 .4 mg/dL [facility] Magnesium [Mass/Vol] 2.2 mg/dL 1.6 - 2 .4 mg/dL [facility] Magnesium [Mass/Vol] 2.1 mg/dL 1.6 - 2 .4 mg/dL [facility] Magnesium [Mass/Vol] 2.1 mg/dL 1.6 - 2 .4 mg/dL [facility] Magnesium [Mass/Vol] 2.2 mg/dL 1.6 - 2 .4 mg/dL [facility] Magnesium [Mass/Vol]on 11-27 Interpretation and review of laboratory results Normal [facility] Interpretation and review of laboratory results Normal [facility] Interpretation and review of laboratory results Normal [facility] Interpretation and review of laboratory results Normal [facility] Interpretation and review of laboratory results Normal [facility] NT Pro BNPon 11-27-2023 Natriuretic peptide.B prohormone N-Terminal [Mass/Vol] 45933 pg/mL High 0 - 300 pg/mL [facility] Natriuretic peptide.B prohor katja N-Terminal [Mass/Vol]on 11-27-2023 Interpretation and review of laboratory results Abnormal [facility] No Panel Informationon 11-27 [facility] Interpretation and review of laboratory results Abnormal [facility] Obtain venous blood gases an d performon 11-27-2023 [facility] POC Arterial Blood Gas Panel -Pulmon 11-27-2023 Alveolar-arterial oxygen Partial pressure difference 85.4 mm Hg [facility] Base excess Calc (Bld) [Moles/Vol] -7.1000 mmol/L Low -2.0 - 2.0 [facility] Calcium.ionized [Mass/Vol] 4.7 mg/dL 4.5 - 5.3 mg/dL [facility] Carboxyhemoglobin (BldA) [Mass fraction] 1.3 NINF [facility] [facility] Chloride [Moles/Vol] 107 mmol/L 98 - 10 8 mmol/L [facility] CO2 (Bld) [Partial pressure] 31.7 mm[Hg] Low [facility] Glucose post fast [Mass/Vol] 543 mg/dL Critically high 65 - 99 mg/dL [facility] HCO3 (Bld) [Moles/Vol] 17.5 mmol/L Low 22.0 - 26.0 mmol/L [facility] Hematocrit (BldA) [Volume fraction] 37.9 % Low 41.0 - 53.0 % [facility] Hemoglobin (Bld) [Mass/Vol] 12.4 g/dL Low 13.5 - 17.5 g/dL [facility] Inhaled oxygen concentration 30 % [facility] Interpretation and review of laboratory results Abnormal [facility] Lactate [Moles/Vol] 1.7 mmol/L 0.6 - 2. 0 mmol/L [facility] Methemoglobin (BldA) [Mass fraction] % 0.0 - 2.0 % [facility] Oxygen (Bld) [Partial pressure] 84 mm[Hg] [facility] Oxyhemoglobin (BldA) [Mass fraction] 94.5 % 94.0 - 98.0 % [facility] pH (Bld) 7.35 [pH] 7.35 - 7.45 [facility] Potassium [Moles/Vol] 4.6 mmol/L 3.5 - 5.1 mmol/L [facility] Sodium [Moles/Vol] 138 mmol/L 135 - 145 mmol/L [facility] Specimen source Nom (Unsp spec) Radial, right [facility] POC Venous Blood Gas Panel-P ulmon 11-27-2023 Base excess Calc (BldV) [Moles/Vol] -8.4000 mmol/L Low -2.0 - 2.0 [facility] Calcium.ionized [Mass/Vol] 4.4 mg/dL Low 4.5 - 5.3 mg/dL [facility] Carboxyhemoglobin (BldA) [Mass fraction] 2.9 High [facility] Chloride [Moles/Vol] 108 mmol/L 98 - 10 8 mmol/L [facility] CO2 (BldV) [Partial pressure] 26.6 mm[Hg] Low [facility] Glucose post fast [Mass/Vol] 544 mg/dL Critically high 65 - 99 mg/dL [facility] HCO3 (Bld) [Moles/Vol] 15.4 mmol/L Low 24.0 - 28.0 mmol/L [facility] Hematocrit (BldA) [Volume fraction] 36.5 % Low 41.0 - 53.0 % [facility] Hemoglobin (Bld) [Mass/Vol] 11.9 g/dL Low 13.5 - 17.5 g/dL [facility] Inhaled oxygen concentration 30 % [facility] Interpretation and review of laboratory results Abnormal [facility] Lactate [Moles/Vol] 2.5 mmol/L High 0.6 - 2. 0 mmol/L [facility] Methemoglobin (BldA) [Mass fraction] % 0.0 - 2.0 % [facility] Oxygen (BldV) [Partial pressure] 140 mm[Hg] High [facility] Oxygen saturation in Venous blood 99.4 % High 40.0 - 70.0 % [facility] Oxyhemoglobin (BldA) [Mass fraction] 96.3 % No established reference range [facility] pH (BldV) 7.37 [pH] 7.32 - 7.42 [facility] Potassium [Moles/Vol] 4.0 mmol/L 3.5 - 5.1 mmol/L [facility] Sodium [Moles/Vol] 138 mmol/L 135 - 145 mmol/L [facility] Specimen source Nom (Unsp spec) Not specified [facility] Base excess Calc (BldV) [Moles/Vol] -5.8000 mmol/L Low -2.0 - 2.0 [facility] Calcium.ionized [Mass/Vol] 4.7 mg/dL 4.5 - 5.3 mg/dL [facility] Carboxyhemoglobin (BldA) [Mass fraction] 2.9 High [facility] Chloride [Moles/Vol] 107 mmol/L 98 - 10 8 mmol/L [facility] CO2 (BldV) [Partial pressure] 34.1 mm[Hg] Low [facility] Glucose post fast [Mass/Vol] 493 mg/dL Critically high 65 - 99 mg/dL [facility] HCO3 (Bld) [Moles/Vol] 19.0 mmol/L Low 24.0 - 28.0 mmol/L [facility] Hematocrit (BldA) [Volume fraction] 35.4 % Low 41.0 - 53.0 % [facility] Hemoglobin (Bld) [Mass/Vol] 11.5 g/dL Low 13.5 - 17.5 g/dL [facility] Inhaled oxygen concentration 28 % [facility] Inhaled oxygen flow rate 2 L/min [facility] Interpretation and review of laboratory results Abnormal [facility] Lactate [Moles/Vol] 1.8 mmol/L 0.6 - 2. 0 mmol/L [facility] Methemoglobin (BldA) [Mass fraction] % 0.0 - 2.0 % [facility] Oxygen (BldV) [Partial pressure] 63 mm[Hg] High [facility] Oxygen saturation in Venous blood 91.7 % High 40.0 - 70.0 % [facility] Oxyhemoglobin (BldA) [Mass fraction] 88.7 % No established reference range [facility] pH (BldV) 7.36 [pH] 7.32 - 7.42 [facility] Potassium [Moles/Vol] 4.7 mmol/L 3.5 - 5.1 mmol/L [facility] Sodium [Moles/Vol] 138 mmol/L 135 - 145 mmol/L [facility] Specimen source Nom (Unsp spec) Not specified [facility] Phosphate [Mass/Vol]on 11-27 Interpretation and review of laboratory results Normal [facility] Interpretation and review of laboratory results Abnormal [facility] Interpretation and review of laboratory results Normal [facility] Interpretation and review of laboratory results Normal [facility] Interpretation and review of laboratory results Abnormal [facility] Phosphoruson 11-27-2023 Phosphate [Mass/Vol] 2.6 mg/dL 2.3 - 3 .7 mg/dL [facility] Phosphate [Mass/Vol] 4.1 mg/dL High 2.3 - 3 .7 mg/dL [facility] Phosphate [Mass/Vol] 3.0 mg/dL 2.3 - 3 .7 mg/dL [facility] Phosphate [Mass/Vol] 2.3 mg/dL 2.3 - 3 .7 mg/dL [facility] Phosphate [Mass/Vol] 4.1 mg/dL High 2.3 - 3 .7 mg/dL [facility] Reflex Lactic Acid, Plasmaon 11-27-2023 Interpretation and review of laboratory results Normal [facility] Lactate [Moles/Vol] 2.0 mmol/L 0.6 - 2. 0 mmol/L [facility] Interpretation and review of laboratory results Abnormal [facility] Lactate [Moles/Vol] 2.8 mmol/L High 0.6 - 2. 0 mmol/L [facility] Respiratory pathogens DNA an d RNA panel ALICE+non-probe (Nph)Ordered By: Melania Freeman on 11-27-2023 Adenovirus DNA ALICE+non-probe Ql (Nph) Not detected Not Detected [facility] B. parapertussis [id number] DNA ALICE+non-probe Ql (Nph) Not detected Not Detected [facility] B. pertussis toxin promoter region ALICE+non-probe Ql (Nph) Not detected Not Detected [facility] C. pneumoniae DNA ALICE+non-probe Ql (Nph) Not detected Not Detected [facility] FLUAV RNA ALICE+non-probe Ql (Nph) Not detected Not Detected [facility] FLUBV RNA ALICE+non-probe Ql (Nph) Not detected Not Detected [facility] HCoV 229E RNA ALICE+non-probe Ql (Nph) Not detected Not Detected [facility] HCoV HKU1 RNA ALICE+non-probe Ql (Nph) Not detected Not Detected [facility] HCoV NL63 RNA ALICE+non-probe Ql (Nph) Not detected Not Detected [facility] HCoV OC43 RNA ALICE+non-probe Ql (Nph) Not detected Not Detected [facility] hMPV RNA ALICE+non-probe Ql (Nph) Not detected Not Detected [facility] Interpretation and review of laboratory results Normal [facility] M. pneumoniae DNA ALICE+non-probe Ql (Nph) Not detected Not Detected [facility] Parainfluenza virus 1 RNA ALICE+non-probe Ql (Nph) Not detected Not Detected [facility] Parainfluenza virus 2 RNA ALICE+non-probe Ql (Nph) Not detected Not Detected [facility] Parainfluenza virus 3 RNA ALICE+non-probe Ql (Nph) Not detected Not Detected [facility] Parainfluenza virus 4 RNA ALICE+non-probe Ql (Nph) Not detected Not Detected [facility] Rhinovirus+Enterovirus RNA ALICE+non-probe Ql (Nph) Not detected Not Detected [facility] RSV RNA ALICE+non-probe Ql (Nph) Not detected Not Detected [facility] SARS-CoV-2 (COVID-19) RNA ALICE+non-probe Ql (Nph) Not detected Not Detected [facility] S. pneumoniae Urine AntigenO rdered By: Maxine Hill on 11-27-2023 Interpretation and review of laboratory results Normal [facility] S. pneumoniae Ag Ql (U) Negative Pres umptive Negative for Pneumococcal pneumoniae [facility] TSH DL <= 0.005 mIU/L Qnon 0 11-27-2023 Interpretation and review of laboratory results Normal [facility] TSH Qn 0.35 m[IU]/L [facility] Tropinin I.cardiac panel Hig h sensitivity methodon 11-27-2023 Interpretation and review of laboratory results Abnormal [facility] Less than 99th percentile of normal [...] performed using a different testing methodology at [facility] than at other [facility]. Direct result comparisons should only be made within the same method. [facility] Troponin I, High Sensitivity on 11-27-2023 Tropinin I.cardiac panel High sensitivity method 6445 ng/L Critically high 0 - 20 ng/L [facility] Comment on above: Previous result zay boss on 11/26/2023 2158 on specimen/case [id number] called with component [facility] for procedure Troponin I, High Sensitivity with value 2,361 ng/L. Troponin x 2 (Now and Repeat in 3 hours)Ordered By: Stephanie Carlton on 11-27-2023 Delta % Troponin I -6 % <20% of Baseline Troponin [facility] Inter Troponin I Delta Change Probable non-acute cardiac injury or late presentation of acute injury. [facility] Interpretation and review of laboratory results Abnormal [facility] Troponin I 9349 ng/L Critically high NINF - 59 ng/L [facility] Troponin x 2 (Now and Repeat in 3 hours)on 11-27-2023 Interpretation and review of laboratory results Abnormal [facility] Troponin I 9973 ng/L Critically high NINF - 59 ng/L [facility] Troponin I Interpretation Possible acute cardiac injury. [facility] XR Chest PA and Abdomen APon 11-27-2023 GE RIS GE RIS [facility] Radiology Study observation (narrative) [facility] XR Chest PA and Abdomen APOr dered By: Malika Painting on 11-27-2023 [facility] Work Phone: aPTT Coag (Bld) [Time]Ordere d By: Becky Mercado on 11-27-2023 Interpretation and review of laboratory results Abnormal [facility] aPTT Coag (Bld) [Time]Ordere d By: Anjali Hartmann on 11-27-2023 Interpretation and review of laboratory results Abnormal [facility] CBC W Auto Differential pane l (Bld)on 11-26-2023 Basophils (Bld) [#/Vol] 0.05 10*3/uL [facility] Basophils/100 WBC (Bld) 0.2 % 0.0 - 2.0 % [facility] Eosinophils (Bld) [#/Vol] 0.00 10*3/uL [facility] Eosinophils/100 WBC (Bld) 0.0 % 0.0 - 6.0 % [facility] Erythrocyte distribution width (RBC) [Ratio] 13.8 % 11.5 - 14.5 % [facility] Hematocrit (Bld) [Volume fraction] 38.0 % Low 41.0 - 52.0 % [facility] Hemoglobin (Bld) [Mass/Vol] 12.2 g/dL Low 13.5 - 17.5 g/dL [facility] Immature granulocytes (Bld) [#/Vol] 0.12 10*3/uL [facility] Immature granulocytes/100 WBC (Bld) 0.6 % 0.0 - 0.9 % [facility] Comment on above: Immature Granulocyte Count (IG) includes promyelocytes, myelocytes and metamyelocytes but does not include bands. Percent differential counts (%) should be interpreted in the context of the absolute cell counts (cells/UL). Interpretation and review of laboratory results Abnormal [facility] Lymphocytes (Bld) [#/Vol] 2.01 10*3/uL [facility] Lymphocytes/100 WBC (Bld) 9.8 % 13.0 - 44. 0 % [facility] MCH (RBC) [Entitic mass] 30.5 pg 26. 0 - 34.0 pg [facility] MCHC (RBC) [Mass/Vol] 32.1 g/dL 32.0 - 36.0 g/dL [facility] MCV (RBC) [Entitic vol] 95 fL 80 - 100 fL [facility] Monocytes (Bld) [#/Vol] 0.75 10*3/uL [facility] Monocytes/100 WBC (Bld) 3.7 % 2.0 - 10.0 % [facility] Neutrophils (Bld) [#/Vol] 17.49 10*3/uL High [facility] Comment on above: Percent differential counts (%) should be interpreted in the context of the absolute cell counts (cells/uL). Neutrophils/100 WBC (Bld) 85.7 % 40.0 - 80. 0 % [facility] Nucleated RBC/100 WBC (Bld) [Ratio] 0.0 % [facility] Platelets (Bld) [#/Vol] 281 10*3/uL [facility] RBC (Bld) [#/Vol] 4.00 10*6/uL Low [facility] WBC (Bld) [#/Vol] 20.4 10*3/uL High [facility] Comprehensive metabolic 2000 panelon 11-26-2023 Albumin BCP dye [Mass/Vol] 4.2 g/dL 3.4 - 5.0 g/dL [facility] ALP [Catalytic activity/Vol] 101 U/L 33 - 136 U/L [facility] ALT With P-5'-P [Catalytic activity/Vol] 38 U/L 10 - 52 U/L [facility] Comment on above: Patients treated wit h Sulfasalazine may generate falsely decreased results for ALT. Anion gap [Moles/Vol] 17 mmol/L 10 - 2 0 mmol/L [facility] AST With P-5'-P [Catalytic activity/Vol] 53 U/L High 9 - 39 U/L [facility] Bilirubin [Mass/Vol] 0.6 mg/dL 0.0 - 1 .2 mg/dL [facility] Calcium [Mass/Vol] 9.2 mg/dL 8.6 - 10. 3 mg/dL [facility] Chloride [Moles/Vol] 106 mmol/L 98 - 10 7 mmol/L [facility] CO2 [Moles/Vol] 17 mmol/L Low 21 - 32 mmol/L [facility] Creatinine [Mass/Vol] 1.96 mg/dL High 0.50 - 1.30 mg/dL [facility] GFR/1.73 sq M.predicted among non-blacks MDRD (S/P/Bld) [Vol rate/Area] 34 mL/min/{1.73_m2} Low - [facility] Comment on above: Calculations of albin mated GFR are performed using the 2020 CKD-EPI Study Refit equation without the race variable for the IDMS-Traceable creatinine methods. https://jasn.asnjournals.org/content//ASN.20 52977331 Glucose [Mass/Vol] 492 mg/dL Critically high 74 - 99 mg/d L [facility] Comment on above: Confirmed by repeat analysis Interpretation and review of laboratory results Abnormal [facility] Potassium [Moles/Vol] 4.5 mmol/L 3.5 - 5.3 mmol/L [facility] Protein [Mass/Vol] 6.7 g/dL 6.4 - 8.2 g/dL [facility] Sodium [Moles/Vol] 135 mmol/L Low 136 - 145 mmol/L [facility] Urea nitrogen [Mass/Vol] 35 mg/dL High 6 - 23 mg/d L [facility] Critical Careon 11-26-2023 Gre Bansal DO 11/27/2023 1:19 AM Critical Care [...] discussed with: accepting provider at another facility [facility] Work Phone: [facility] Work Phone: Lactateon 11-26-2023 Lactate [Moles/Vol] 3.2 mmol/L High 0.4 - 2. 0 mmol/L [facility] Lactate [Moles/Vol] 3.8 mmol/L High 0.4 - 2. 0 mmol/L [facility] Lactate [Moles/Vol]on 2023 Interpretation and review of laboratory results Abnormal [facility] Venipuncture immediately after or during the administration of Metamizole may lead to falsely low results. Testing should be performed immediately prior to Metamizole dosing. [facility] Interpretation and review of laboratory results Abnormal [facility] Venipuncture immediately after or during the administration of Metamizole may lead to falsely low results. Testing should be performed immediately prior to Metamizole dosing. [facility] MRSA DNA ALICE+probe Ql (Nose) on 11-26-2023 Interpretation and review of laboratory results Normal [facility] MRSA DNA ALICE+probe Ql (Unsp spec) Not detected Not Detected [facility] This assay is an FDA-approved in [...] patients less than two years of age. [facility] Magnesiumon 11-26-2023 Magnesium [Mass/Vol] 2.20 mg/dL 1.60 - 2.40 mg/dL [facility] Magnesium [Mass/Vol]on 11-26 Interpretation and review of laboratory results Normal [facility] Natriuretic peptide B [Mass/ Vol]on 11-26-2023 Interpretation and review of laboratory results Abnormal [facility] Natriuretic peptide B (Bld) [Mass/Vol] 902 pg/mL High 0 - 99 pg/mL [facility] <100 pg/mL - Heart failure unlikely 100-299 pg/mL - Intermediate probability of acute heart failure exacerbation. Correlate with clinical context and patient history. >=300 pg/mL - Heart Failure likely. Correlate with clinical context and patient history. BNP testing is performed using different testing methodology at [facility] than at other [facility]. Direct result comparisons should only be made within the same method. [facility] No Panel Informationon 11-26 [facility] Interpretation and review of laboratory results Normal [facility] PT Coag (PPP) [Time]on 11-26 INR Coag (PPP) [Relative time] 1.1 {INR} 0.9 - 1.1 [facility] Protime-INRon 11-26-2023 PT Coag (PPP) [Time] 12.3 s [facility] Tropinin I.cardiac panel Hig h sensitivity methodon 11-26-2023 Interpretation and review of laboratory results Abnormal [facility] Less than 99th percentile of normal [...] performed using a different testing methodology at [facility] than at other [facility]. Direct result comparisons should only be made within the same method. [facility] Interpretation and review of laboratory results Abnormal [facility] Less than 99th percentile of normal [...] performed using a different testing methodology at [facility] than at other [facility]. Direct result comparisons should only be made within the same method. [facility] Troponin I, High Sensitivity on 11-26-2023 Tropinin I.cardiac panel High sensitivity method 3473 ng/L Critically high 0 - 20 ng/L [facility] Comment on above: Previous result veri fied on 11/26/2023 2158 on specimen/case [id number] called with component [facility] for procedure Troponin I, High Sensitivity with value 2,361 ng/L. Tropinin I.cardiac panel High sensitivity method 2361 ng/L Critically high 0 - 20 ng/L [facility] XR Chest Single viewon 11-26 Pulmonary vascular congestive change and edema and small bilateral pleural effusions. There is asymmetric opacity in the right lower lung concerning for superimposed pneumonia. 10 mm nodular opacity at the left lung base; follow-up dedicated CT chest is recommended to exclude underlying pulmonary nodule. MACRO: None Signed by: Ghassan Tovar 11/26/2023 10:02 PM Dictation workstation: [id number] MMODAL Interpreted By: Ghassan Tovar, STUDY: XR CHEST 1 VIEW; 11/26/2023 9:31 pm INDICATION: Signs/Symptoms:dyspn ea. COMPARISON: 10/13/2023 ACCESSION NUMBER(S): [id number] ORDERING CLINICIAN: GER BANSAL FINDINGS: The cardiac silhouette is stable in size. There is pulmonary vascular congestive change and edema. Small bilateral pleural effusions. There is 10 mm nodular opacity at the left lung base. No pneumothorax MMODAL Ghassan Tovar MD - 11/26/2023 Interpreted By: Ghassan Tovar, STUDY: XR CHEST 1 VIEW; 11/26/2023 9:31 pm INDICATION: Signs/Symptoms:dyspn ea. COMPARISON: 10/13/2023 ACCESSION NUMBER(S): [id number] ORDERING CLINICIAN: GER BANSAL FINDINGS: The cardiac [...] Ghassan Tovar 11/26/2023 10:02 PM Dictation workstation: [id number] [facility] Work Phone: Radiology Study observation (narrative) [facility] Work Phone: XR Chest Single viewOrdered By: Ghassan Tovar on 11-26-2023 [facility] Work Phone: aPTTon 11-26-2023 aPTT Coag (PPP) [Time] 38 s Un [facility] aPTT Coag (PPP) [Time]on The APTT is no longer used for monitoring Unfractionated Heparin Therapy. For monitoring Heparin Therapy, use the Heparin Assay. [facility] Absolute lymphocyte countOrd ered By: Ryley Jeter on 11-25-2023 Lymphocytes Auto (Unsp spec) [#/Vol] 1.79 10*3/uL 0.83-4.51 [facility] Automated lymphocyte count a s percentage of total leukocytesOrdered By: Ryley Gordilloke on 11-25-2023 Lymphocytes/100 WBC Auto (Unsp spec) 19.7 % 19-41 [facility] Basophil percentageOrdered B y: Ryely Steffany on 11-25-2023 Basophils/100 WBC (Bld) 1.0 % 0-1 [facility] Bilirubin [Mass/Vol] 0.50 mg/dL 0.20-1.00 [facility] Comment on above: For patients on eltr ombopag therapy, use of Dimension [place] TBIL is not recommended. Chloride [Moles/Vol] 113 mmol/L 98-107 [facility] Eosinophils/100 WBC (Bld) 2.3 % 0-5 [facility] Glucose [Mass/Vol] 130 mg/dL 74-106 [facility] Comment on above: Fasting Glucose resu lt greater than or equal to 126 mg/dL suggests DIABETES MELLITUS per A.D.A. criteria. Hemoglobin (Bld) [Mass/Vol] 12.2 g/dL 13.0-16.5 [facility] Monocytes/100 WBC (Bld) 7.5 % 0-10 [facility] Neutrophils (Bld) [#/Vol] 6.3 10*3/uL 2.0-7.7 [facility] Neutrophils/100 WBC (Bld) 69.2 % 47-70 [facility] Potassium [Moles/Vol] 4.3 mmol/L 3.5-5.1 [facility] Protein [Mass/Vol] 7.1 g/dL 6.4-8.2 [facility] Sodium [Moles/Vol] 142 mmol/L 136-145 [facility] WBC (Bld) [#/Vol] 9.1 10*3/uL 4.4-11.0 [facility] Determination of erythrocyte mean corpuscular volume (MCV)Ordered By: Ryley Jeter on 11-25-2023 MCV (RBC) [Entitic vol] 93.5 fL 80-94 [facility] Erythrocyte distribution wid th ratioOrdered By: Ryley Steffany on 11-25-2023 Erythrocyte distribution width (RBC) [Ratio] 14.1 % 11.6-14.6 [facility] Erythrocyte distribution wid th standard deviationOrdered By: Ryley Steffany on 11-25-2023 Erythrocyte distribution width (RBC) [Entitic vol] 47.9 fL 35.1-43.9 [facility] Hematocrit Auto (Bld) [Volum e fraction]Ordered By: [facility] on 11-25-2023 Hematocrit (Bld) [Volume fraction] 37.7 % 40-54 [facility] Immature granulocytes/100 WB C Auto (Bld)Ordered By: [facility] Ste[facility] on 11-25-2023 Immature granulocytes/100 WBC (Bld) 0.300 % 0.0-0.9 [facility] Comment on above: IG% - Immature Granu locytes (promyelocytes, myelocytes and metamyelocytes) > 1% indicates that a LEFT SHIFT is Present. Laboratory - Chemistry and C hemistry - challengeOrdered By: Ryley Steffany on 11-25-2023 Albumin/Globulin [Mass ratio] 1.0 {ratio} 0.9-2.4 [facility] ALP [Catalytic activity/Vol] 98 U/L 45-117 [facility] ALT [Catalytic activity/Vol] 25 U/L 16-61 [facility] CO2 [Moles/Vol] 25.0 mmol/L 21.0-32.0 [facility] Globulin (S) [Mass/Vol] 3.5 g/dL 2.2-4.2 [facility] Urea nitrogen/Creatinine [Mass ratio] 13.5 mg/mg 10-20 [facility] Laboratory - Hematology and Cell countsOrdered By: [facility] J[facility] on 11-25-2023 MCH (RBC) [Entitic mass] 30.3 pg 27.0-32.0 [facility] MCHC (RBC) [Mass/Vol] 32.4 g/dL 32-36 [facility] Nucleated RBC/100 WBC (Bld) [Ratio] 0 % 0-5 [facility] [facility] Platelets (Bld) [#/Vol] 239 10*3/uL 150-450 [facility] [place] No Panel InformationOrdered By: Ryley Jeter on 11-25-2023 Estimated GFR (MDRD) Amer 55 mL/min >60 [facility] [place] Comment on above: GFR Calc Estimated GFR (MDRD) Non-Af Amer 46 mL/min >60 [facility] [place] Comment on above: Non- GFR Calc Platelet mean volume Kodi-Ec ker (Bld) [Entitic vol]Ordered By: Ryley Jeter on 11-25-2023 Platelet mean volume (Bld) [Entitic vol] 11.3 fL 6.2-12.0 [facility] RBC Auto (Bld) [#/Vol]Ordere d By: Ryley Jeter on 11-25-2023 RBC (Bld) [#/Vol] 4.03 10*6/uL 4.6-6.2 [facility] Serum or plasma calcium nikkie urement (mass/volume)Ordered By: Ryley Jeter on 11-25-2023 Calcium [Mass/Vol] 9.5 mg/dL 8.5-10.1 [facility] Serum or plasma creatinine m easurement (mass/volume)Ordered By: Ryley Jeter on 11-25-2023 Creatinine [Mass/Vol] 1.56 mg/dL 0.70-1.30 [facility] Comment on above: The validity of the calculated GFR & GFRAA in patients over 70 years has not been determined. Clinical correlation is essential. Serum or plasma thyroid stim ulating hormone (TSH) measurement (units/volume)Ordered By: Ryley Jeter on 11-25-2023 TSH Qn 0.80 uIU/mL 0.358-3.74 [facility] [place] Serum or plasma urea nitroge n measurement (mass/volume)Ordered By: Ryley Jeter on 11-25-2023 Urea nitrogen [Mass/Vol] 21 mg/dL 7-18 [facility] [place] Thin prep Papanicolaou smear with manual screeningOrdered By: Ryley Jeter on 11-25-2023 Thin prep Papanicolaou smear with manual screening 3.6 g/dL 3.2-5.0 [facility] [place] Thin prep Papanicolaou smear with manual screening 23 U/L 15-37 [facility] [place] Thin prep Papanicolaou smear with manual screening 4 5-15 [facility] [place] Basophil percentageOrdered B y: Jana Ferguson on 10-22-2023 Chloride [Moles/Vol] 111 mmol/L 98-107 [facility] Glucose [Mass/Vol] 120 mg/dL 74-106 [facility] Comment on above: Fasting Glucose resu lt from 100 to 125 mg/dL suggests IMPAIRED HOMEOSTASIS per A.D.A. criteria. Potassium [Moles/Vol] 4.7 mmol/L 3.5-5.1 [facility] Sodium [Moles/Vol] 140 mmol/L 136-145 [facility] WBC (Bld) [#/Vol] 9.1 10*3/uL 4.4-11.0 [facility] Blood erythrocytes count (nu mber/volume)Ordered By: Jana Ferguson on 10-22-2023 RBC (Bld) [#/Vol] 4.16 10*6/uL 4.6-6.2 [facility] Blood hemoglobin measurement (mass/volume)Ordered By: Jana Ferguson on 10-22-2023 Hemoglobin (Bld) [Mass/Vol] 12.3 g/dL 13.0-16.5 [facility] [place] Blood platelet mean volumeOr dered By: Jana Ferguson on 10-22-2023 Platelet mean volume (Bld) [Entitic vol] 11.6 fL 6.2-12.0 [facility] [place] Determination of erythrocyte mean corpuscular volume (MCV)Ordered By: Jana Ferguson on 10-22-2023 MCV (RBC) [Entitic vol] 93.0 fL 80-94 [facility] Hematocrit Auto (Bld) [Volum e fraction]Ordered By: Jana Ferguson on 10-22-2023 Hematocrit (Bld) [Volume fraction] 38.7 % 40-54 [facility] [place] Laboratory - Chemistry and C hemistry - challengeOrdered By: Jana Ferguson on 10-22-2023 CO2 [Moles/Vol] 27.0 mmol/L 21.0-32.0 [facility] [place] Urea nitrogen/Creatinine [Mass ratio] 20.9 mg/mg 10-20 [facility] [place] Laboratory - Hematology and Cell countsOrdered By: Jana Ferguson on 10-22-2023 Erythrocyte distribution width (RBC) [Entitic vol] 44.3 fL 35.1-43.9 [facility] Erythrocyte distribution width (RBC) [Ratio] 13.0 % 11.6-14.6 [facility] [place] MCH (RBC) [Entitic mass] 29.6 pg 27.0-32.0 [facility] [place] MCHC Auto (RBC) [Mass/Vol]Or dered By: Jana Ferguson on 10-22-2023 MCHC (RBC) [Mass/Vol] 31.8 g/dL 32-36 [facility] No Panel InformationOrdered By: Jana Ferguson on 10-22-2023 Estimated GFR (MDRD) Amer 40 mL/min >60 [facility] [place] Comment on above: GFR Calc Estimated GFR (MDRD) Non-Af Amer 33 mL/min >60 [facility] [place] Comment on above: Non- GFR Calc Platelets bldOrdered By: Jadyn Ferguson on 10-22-2023 Platelets (Bld) [#/Vol] 304 10*3/uL 150-450 [facility] [place] Serum or plasma calcium nikkie urement (mass/volume)Ordered By: Jana Ferguson on 10-22-2023 Calcium [Mass/Vol] 9.1 mg/dL 8.5-10.1 [facility] Serum or plasma creatinine m easurement (mass/volume)Ordered By: Jana Ferguson on 10-22-2023 Creatinine [Mass/Vol] 2.06 mg/dL 0.70-1.30 [facility] Comment on above: The validity of the calculated GFR & GFRAA in patients over 70 years has not been determined. Clinical correlation is essential. Serum or plasma urea nitroge n measurement (mass/volume)Ordered By: Jana Ferguson on 10-22-2023 Urea nitrogen [Mass/Vol] 43 mg/dL 7-18 [facility] [place] Thin prep Papanicolaou smear with manual screeningOrdered By: Jana Ferguson on 10-22-2023 Thin prep Papanicolaou smear with manual screening 2 5-15 [facility] [place] Basic metabolic 2000 panelon 10-13-2023 Anion gap [Moles/Vol] 17 mmol/L 10 - 2 0 mmol/L [facility] Calcium [Mass/Vol] 8.3 mg/dL Low 8.6 - 10. 3 mg/dL [facility] Chloride [Moles/Vol] 102 mmol/L 98 - 10 7 mmol/L [facility] CO2 [Moles/Vol] 22 mmol/L 21 - 32 mmol/L [facility] Creatinine [Mass/Vol] 2.30 mg/dL High 0.50 - 1.30 mg/dL [facility] GFR/1.73 sq M.predicted MDRD (S/P/Bld) [Vol rate/Area] 28 mL/min/{1.73_m2} Low - PINF [facility] Comment on above: Calculations of albin mated GFR are performed using the 2020 CKD-EPI Study Refit equation without the race variable for the IDMS-Traceable creatinine methods. https://jasn.asnjournals.org/content//ASN.20 79766595 Glucose [Mass/Vol] 327 mg/dL High 74 - 99 mg/dL [facility] Interpretation and review of laboratory results Abnormal [facility] Potassium [Moles/Vol] 4.9 mmol/L 3.5 - 5.3 mmol/L [facility] Sodium [Moles/Vol] 136 mmol/L 136 - 145 mmol/L [facility] Urea nitrogen [Mass/Vol] 57 mg/dL High 6 - 23 mg/d L [facility] CBC W Auto Differential pane l (Bld)on 10-13-2023 Basophils (Bld) [#/Vol] 0.02 10*3/uL [facility] Basophils/100 WBC (Bld) 0.1 % 0.0 - 2.0 % [facility] Eosinophils (Bld) [#/Vol] 0.00 10*3/uL [facility] Eosinophils/100 WBC (Bld) 0.0 % 0.0 - 6.0 % [facility] Erythrocyte distribution width (RBC) [Ratio] 13.2 % 11.5 - 14.5 % [facility] Hematocrit (Bld) [Volume fraction] 36.4 % Low 41.0 - 52.0 % [facility] Hemoglobin (Bld) [Mass/Vol] 12.4 g/dL Low 13.5 - 17.5 g/dL [facility] Immature granulocytes (Bld) [#/Vol] 0.11 10*3/uL [facility] Immature granulocytes/100 WBC (Bld) 0.6 % 0.0 - 0.9 % [facility] Comment on above: Immature Granulocyte Count (IG) includes promyelocytes, myelocytes and metamyelocytes but does not include bands. Percent differential counts (%) should be interpreted in the context of the absolute cell counts (cells/UL). Interpretation and review of laboratory results Abnormal [facility] Lymphocytes (Bld) [#/Vol] 1.30 10*3/uL [facility] Lymphocytes/100 WBC (Bld) 7.3 % 13.0 - 44. 0 % [facility] MCH (RBC) [Entitic mass] 31.0 pg 26. 0 - 34.0 pg [facility] MCHC (RBC) [Mass/Vol] 34.1 g/dL 32.0 - 36.0 g/dL [facility] MCV (RBC) [Entitic vol] 91 fL 80 - 100 fL [facility] Monocytes (Bld) [#/Vol] 1.15 10*3/uL High [facility] Monocytes/100 WBC (Bld) 6.5 % 2.0 - 10.0 % [facility] Neutrophils (Bld) [#/Vol] 15.21 10*3/uL High [facility] Comment on above: Percent differential counts (%) should be interpreted in the context of the absolute cell counts (cells/uL). Neutrophils/100 WBC (Bld) 85.5 % 40.0 - 80. 0 % [facility] Nucleated RBC/100 WBC (Bld) [Ratio] 0.0 % [facility] Platelets (Bld) [#/Vol] 153 10*3/uL [facility] RBC (Bld) [#/Vol] 4.00 10*6/uL [facility] [#/Vol] 17.8 10*3/uL High [facility]ive [facility] Glucose Test strip manual (B ld) [Mass/Vol]on 10-13-2023 Glucose [Mass/Vol] 329 mg/dL High 74 - 99 mg/dL [facility] Interpretation and review of laboratory results Abnormal [facility] Glucose [Mass/Vol] 304 mg/dL High 74 - 99 mg/dL [facility] Interpretation and review of laboratory results Abnormal [facility] Glucose [Mass/Vol] 305 mg/dL High 74 - 99 mg/dL [facility] Interpretation and review of laboratory results Abnormal [facility] XR Chest Single viewon 10-13 Right upper lobe airspace consolidation, concerning for pneumonia. Clinical correlation and continued follow-up until clearing is recommended. MACRO: None. Signed by: Jaret Walker 10/13/2023 11:21 AM Dictation workstation: [id number] Interpreted By: Jaret Walker, STUDY: XR CHEST 1 VIEW 10/13/2023 8:31 am INDICATION: Signs/Symptoms:Acute dyspnea COMPARISON: 10/11/2023 ACCESSION NUMBER(S): [id number] ORDERING CLINICIAN: VERA RIVERA TECHNIQUE: A single [...] INDICATION: Signs/Symptoms:Acute dyspnea COMPARISON: 10/11/2023 ACCESSION NUMBER(S): [id number] ORDERING CLINICIAN: VERA RIVERA TECHNIQUE: A single [...] Jaret Walker 10/13/2023 11:21 AM Dictation workstation: [id number] [facility] Work Phone: Radiology Study observation (narrative) [facility]: XR Chest Single viewOrdered By: Jaret Walker on 10-13-2023 [facility] Work Phone: Basic metabolic 2000 panelon 10-12-2023 Anion gap [Moles/Vol] 13 mmol/L 10 - 2 0 mmol/L [facility] Calcium [Mass/Vol] 8.2 mg/dL Low 8.6 - 10. 3 mg/dL [facility] Chloride [Moles/Vol] 103 mmol/L 98 - 10 7 mmol/L [facility] CO2 [Moles/Vol] 23 mmol/L 21 - 32 mmol/L [facility] Creatinine [Mass/Vol] 2.11 mg/dL High 0.50 - 1.30 mg/dL [facility] GFR/1.73 sq M.predicted MDRD (S/P/Bld) [Vol rate/Area] 31 mL/min/{1.73_m2} Low - PINF [facility] Comment on above: Calculations of albin mated GFR are performed using the 2020 CKD-EPI Study Refit equation without the race variable for the IDMS-Traceable creatinine methods. https://jasn.asnjournals.org/content///ASN.20 03767029 Glucose [Mass/Vol] 214 mg/dL High 74 - 99 mg/dL [facility] Interpretation and review of laboratory results Abnormal [facility] Potassium [Moles/Vol] 4.4 mmol/L 3.5 - 5.3 mmol/L [facility] Sodium [Moles/Vol] 135 mmol/L Low 136 - 145 mmol/L [facility] Urea nitrogen [Mass/Vol] 44 mg/dL High 6 - 23 mg/d L [facility] CBC W Auto Differential pane l (Bld)on 10-12-2023 Basophils (Bld) [#/Vol] 0.03 10*3/uL [facility] Basophils/100 WBC (Bld) 0.1 % 0.0 - 2.0 % [facility] Eosinophils (Bld) [#/Vol] 0.00 10*3/uL [facility] Eosinophils/100 WBC (Bld) 0.0 % 0.0 - 6.0 % [facility] Erythrocyte distribution width (RBC) [Ratio] 13.0 % 11.5 - 14.5 % [facility] Hematocrit (Bld) [Volume fraction] 34.5 % Low 41.0 - 52.0 % [facility] Hemoglobin (Bld) [Mass/Vol] 11.8 g/dL Low 13.5 - 17.5 g/dL [facility] Immature granulocytes (Bld) [#/Vol] 0.09 10*3/uL [facility] Immature granulocytes/100 WBC (Bld) 0.4 % 0.0 - 0.9 % [facility] Comment on above: Immature Granulocyte Count (IG) includes promyelocytes, myelocytes and metamyelocytes but does not include bands. Percent differential counts (%) should be interpreted in the context of the absolute cell counts (cells/UL). Interpretation and review of laboratory results Abnormal [facility] Lymphocytes (Bld) [#/Vol] 1.79 10*3/uL [facility] Lymphocytes/100 WBC (Bld) 8.6 % 13.0 - 44. 0 % [facility] MCH (RBC) [Entitic mass] 30.8 pg 26. 0 - 34.0 pg [facility] MCHC (RBC) [Mass/Vol] 34.2 g/dL 32.0 - 36.0 g/dL [facility] MCV (RBC) [Entitic vol] 90 fL 80 - 100 fL [facility] Monocytes (Bld) [#/Vol] 1.55 10*3/uL High [facility] Monocytes/100 WBC (Bld) 7.5 % 2.0 - 10.0 % [facility] Neutrophils (Bld) [#/Vol] 17.32 10*3/uL [facility] Comment on above: Percent differential counts (%) should be interpreted in the context of the absolute cell counts (cells/uL). Neutrophils/100 WBC (Bld) 83.4 % 40.0 - 80. 0 % [facility] Nucleated RBC/100 WBC (Bld) [Ratio] 0.0 % [facility] Platelets (Bld) [#/Vol] 152 10*3/uL [facility] RBC (Bld) [#/Vol] 3.83 10*6/uL Low Unive [facility] WBC (Bld) [#/Vol] 20.8 10*3/uL [place] Glucose Test strip manual (B ld) [Mass/Vol]on 10-12-2023 Glucose [Mass/Vol] 240 mg/dL High 74 - 99 mg/dL [facility] Interpretation and review of laboratory results Abnormal [facility] Glucose [Mass/Vol] 166 mg/dL High 74 - 99 mg/dL [facility] Interpretation and review of laboratory results Abnormal [facility] Glucose [Mass/Vol] 186 mg/dL High 74 - 99 mg/dL [facility] Interpretation and review of laboratory results Abnormal [facility] Glucose [Mass/Vol] 218 mg/dL High 74 - 99 mg/dL [facility] Interpretation and review of laboratory results Abnormal [facility] Glucose [Mass/Vol] 127 mg/dL High 74 - 99 mg/dL [facility] Interpretation and review of laboratory results Abnormal [facility] No Panel Informationon 10-12 Extra Tube Hold for add-ons. [facility] Comment on above: Auto resulted. [facility] CBC W Auto Differential pane l (Bld)on 10-11-2023 Basophils (Bld) [#/Vol] 0.07 10*3/uL [facility] Basophils/100 WBC (Bld) 0.7 % 0.0 - 2.0 % [facility] Eosinophils (Bld) [#/Vol] 0.09 10*3/uL [facility] Eosinophils/100 WBC (Bld) 0.9 % 0.0 - 6.0 % [facility] Erythrocyte distribution width (RBC) [Ratio] 13.0 % 11.5 - 14.5 % [facility] Hematocrit (Bld) [Volume fraction] 36.7 % Low 41.0 - 52.0 % [facility] Hemoglobin (Bld) [Mass/Vol] 12.0 g/dL Low 13.5 - 17.5 g/dL [facility] Immature granulocytes (Bld) [#/Vol] 0.03 10*3/uL [facility] Immature granulocytes/100 WBC (Bld) 0.3 % 0.0 - 0.9 % [facility] Comment on above: Immature Granulocyte Count (IG) includes promyelocytes, myelocytes and metamyelocytes but does not include bands. Percent differential counts (%) should be interpreted in the context of the absolute cell counts (cells/UL). Interpretation and review of laboratory results Abnormal [facility] Lymphocytes (Bld) [#/Vol] 1.34 10*3/uL [facility] Lymphocytes/100 WBC (Bld) 12.9 % 13.0 - 44. 0 % [facility] MCH (RBC) [Entitic mass] 30.4 pg 26. 0 - 34.0 pg [facility] MCHC (RBC) [Mass/Vol] 32.7 g/dL 32.0 - 36.0 g/dL [facility] MCV (RBC) [Entitic vol] 93 fL 80 - 100 fL [facility] Monocytes (Bld) [#/Vol] 1.25 10*3/uL High [facility] Monocytes/100 WBC (Bld) 12.0 % 2.0 - 10.0 % [facility] Neutrophils (Bld) [#/Vol] 7.64 10*3/uL High [facility] Comment on above: Percent differential counts (%) should be interpreted in the context of the absolute cell counts (cells/uL). Neutrophils/100 WBC (Bld) 73.2 % 40.0 - 80. 0 % [facility] Nucleated RBC/100 WBC (Bld) [Ratio] 0.0 % [facility] Platelets (Bld) [#/Vol] 158 10*3/uL [facility] RBC (Bld) [#/Vol] 3.95 10*6/uL Low Unive [facility] WBC (Bld) [#/Vol] 10.4 10*3/uL [facility] Comprehensive metabolic 2000 panelon 10-11-2023 Albumin BCP dye [Mass/Vol] 3.8 g/dL 3.4 - 5.0 g/dL [facility] ALP [Catalytic activity/Vol] 83 U/L 33 - 136 U/L [facility] ALT With P-5'-P [Catalytic activity/Vol] 13 U/L 10 - 52 U/L [facility] Comment on above: Patients treated wit h Sulfasalazine may generate falsely decreased results for ALT. Anion gap [Moles/Vol] 15 mmol/L 10 - 2 0 mmol/L [facility] AST With P-5'-P [Catalytic activity/Vol] 18 U/L 9 - 39 U/L [facility] Bilirubin [Mass/Vol] 0.4 mg/dL 0.0 - 1 .2 mg/dL [facility] Calcium [Mass/Vol] 8.5 mg/dL Low 8.6 - 10. 3 mg/dL [facility] Chloride [Moles/Vol] 103 mmol/L 98 - 10 7 mmol/L [facility] CO2 [Moles/Vol] 22 mmol/L 21 - 32 mmol/L [facility] Creatinine [Mass/Vol] 1.83 mg/dL High 0.50 - 1.30 mg/dL [facility] GFR/1.73 sq M.predicted MDRD (S/P/Bld) [Vol rate/Area] 37 mL/min/{1.73_m2} Low - PINF [facility] Comment on above: Calculations of albin mated GFR are performed using the 2020 CKD-EPI Study Refit equation without the race variable for the IDMS-Traceable creatinine methods. https://jasn.asnjournals.org/content/early/ASN.20 01724526 Glucose [Mass/Vol] 344 mg/dL High 74 - 99 mg/dL [facility] Interpretation and review of laboratory results Abnormal [facility] Potassium [Moles/Vol] 4.4 mmol/L 3.5 - 5.3 mmol/L [facility] Protein [Mass/Vol] 6.3 g/dL Low 6.4 - 8.2 g/dL [facility] Sodium [Moles/Vol] 136 mmol/L 136 - 145 mmol/L [facility] Urea nitrogen [Mass/Vol] 30 mg/dL High 6 - 23 mg/d L [facility] Critical Careon 10-11-2023 Aury Rouse DO [...] specialty: no Care discussed with: admitting provider [facility] Work Phone: [facility] Work Phone: D-Dimer, VTE Exclusionon Fibrin D-dimer FEU (PPP) [Mass/Vol] 1869 High NINF [facility] ECG 12-LEADon 10-11-2023 ECG 12-LEAD Ventricular Rate 113 Atrial Rate 113 P-R Interval 148 QRS Duration 82 Q-T Interval 332 QTC Calculation(Bazett) 455 P Randolph 67 R Randolph 39 T Randolph 81 QRS Count 18 Q Onset 220 P Onset 146 P Offset 189 T Offset 386 QTC Fredericia 410 Diagnosis Sinus tachycardia 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 Negative results do not preclude Influenza A/B infections, and should not be used as the sole basis for diagnosis, treatment, or other management decisions. If Influenza A/B and RSV PCR results are negative, testing for Parainfluenza virus, Adenovirus and Metapneumovirus is routinely performed for [facility] pediatric oncology and intensive care inpatients, and is available on other patients by placing an add-on request. [facility] Fibrin D-dimer FEU (PPP) [Ma ss/Vol]on 10-11-2023 Interpretation and review of laboratory results Abnormal [facility] The VTE Exclusion D-Dimer assay is reported in ng/mL Fibrinogen Equivalent Units (FEU). Per network cabler's instructions for use, a value of less [...] assessment model for DVT or PE exclusion.) [facility] Gas panel (BldA)on 3 Apparatus CANNULA [facility] Base excess Calc (Bld) [Moles/Vol] -2.2000 mmol/L Low -2.0 - 3.0 mmol/L [facility] CO2 (Bld) [Partial pressure] 41 mm[Hg] [facility] HCO3 (Bld) [Moles/Vol] 23.2 mmol/L 22.0 - 26.0 mmol/L [facility] Inhaled oxygen concentration 50 % [facility] Interpretation and review of laboratory results Abnormal [facility] Oxygen (Bld) [Partial pressure] 66 mm[Hg] Low [facility] Oxyhemoglobin (BldA) [Mass fraction] 90.6 % Low 94.0 - 98.0 % [facility] pH (Bld) 7.36 [pH] Low 7.38 - 7.42 pH [facility] Glucose Test strip manual (B ld) [Mass/Vol]on 10-11-2023 Glucose [Mass/Vol] 132 mg/dL High 74 - 99 mg/dL [facility] Interpretation and review of laboratory results Abnormal [facility] Glucose [Mass/Vol] 203 mg/dL High 74 - 99 mg/dL [facility] Interpretation and review of laboratory results Abnormal [facility] Glucose [Mass/Vol] 271 mg/dL High 74 - 99 mg/dL [facility] Interpretation and review of laboratory results Abnormal [facility] Glucose [Mass/Vol] 357 mg/dL High 74 - 99 mg/dL [facility] Interpretation and review of laboratory results Abnormal [facility] Glucose [Mass/Vol] 407 mg/dL High 74 - 99 mg/dL [facility] Interpretation and review of laboratory results Abnormal [facility] Glucose [Mass/Vol] 385 mg/dL High 74 - 99 mg/dL [facility] Interpretation and review of laboratory results Abnormal [facility] Glucose [Mass/Vol] 455 mg/dL High 74 - 99 mg/dL [facility] Comment on above: RN/ NOTIFIED Interpretation and review of laboratory results Abnormal [facility] Glucose [Mass/Vol] 481 mg/dL High 74 - 99 mg/dL [facility] Comment on above: RN/MD NOTIFIED Interpretation and review of laboratory results Abnormal [facility] Glucose [Mass/Vol] mg/dL High 74 - 99 mg/dL [facility] Interpretation and review of laboratory results Abnormal [facility] Glucose [Mass/Vol] mg/dL High 74 - 99 mg/dL [facility] Interpretation and review of laboratory results Abnormal [facility] Glucose [Mass/Vol] 571 mg/dL High 74 - 99 mg/dL [facility] Interpretation and review of laboratory results Abnormal [facility] Glucose [Mass/Vol] 562 mg/dL High 74 - 99 mg/dL [facility] Comment on above: RN/MD NOTIFIED Interpretation and review of laboratory results Abnormal [facility] Glucose [Mass/Vol] 386 mg/dL High 74 - 99 mg/dL [facility] Interpretation and review of laboratory results Abnormal [facility] Glucose [Mass/Vol]on Interpretation and review of laboratory results Abnormal [facility] Glucose, randomon 10-11-2023 Glucose [Mass/Vol] 654 mg/dL Critically high 74 - 99 mg/d L [facility] Comment on above: Confirmed by repeat analysis Lactateon 10-11-2023 Lactate [Moles/Vol] 1.6 mmol/L 0.4 - 2. 0 mmol/L [facility] Lactate [Moles/Vol]on 2022 Interpretation and review of laboratory results Normal [facility] Venipuncture immediately after or during the administration of Metamizole may lead to falsely low results. Testing should be performed immediately prior to Metamizole dosing. [facility] Natriuretic peptide B [Mass/ Vol]on 10-11-2023 Interpretation and review of laboratory results Abnormal [facility] Natriuretic peptide B (Bld) [Mass/Vol] 251 pg/mL High 0 - 99 pg/mL [facility] <100 pg/mL - Heart failure unlikely 100-299 pg/mL - Intermediate probability of acute heart failure exacerbation. Correlate with clinical context and patient history. >=300 pg/mL - Heart Failure likely. Correlate with clinical context and patient history. BNP testing is performed using different testing methodology at [facility] than at other [facility]. Direct result comparisons should only be made within the same method. [facility] No Panel Informationon 10-11 Atrial Rate 113 BPM [facility] Work Phone: [phone] P Randolph 67 degrees [facility] Work Phone: [phone] P Offset 189 ms [facility] Work Phone: [phone] P Onset 146 ms [facility] Work Phone: [phone] ND Interval 148 ms [facility] Work Phone: [phone] Q Onset 220 ms [facility] Work Phone: [phone] QRS Count 18 beats [facility] Work Phone: [phone] QRS Duration 82 ms [facility] Work Phone: [phone] QT Interval 332 ms [facility] Work Phone: [phone] QTC Calculation(Bazett) 455 ms [facility] Work Phone: [phone] QTC Fredericia 410 ms [facility] Work Phone: [phone] R Randolph 39 degrees [facility] Work Phone: [phone] T Randolph 81 degrees [facility] Work Phone: [phone] T Offset 386 ms [facility] Work Phone: [phone] Ventricular Rate [address] 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 [facility] Comment on above: Auto resulted. [facility] Interpretation and review of laboratory results Normal [facility] ProcalcitoninOrdered By: Teresa Fine on 10-11-2023 Procalcitonin [Mass/Vol] 0.18 ng/mL High ANGEL F - 0.07 ng/mL [facility] Procalcitonin [Mass/Vol]Orde red By: Ismael Fine on 10-11-2023 Interpretation and review of laboratory results Abnormal [facility] Procalcitonin (PCT) results measured serially can [...] on immunomodulatory medications has not been evaluated. [facility] RSV PCRon 10-11-2023 RSV RNA ALICE+probe Ql (Resp) Not detected Not Detected [facility] RSV RNA ALICE+probe Ql (Resp)o n 10-11-2023 This assay is an FDA-cleared, in vitro diagnostic nucleic acid amplification test for the detection of RSV from nasopharyngeal specimens, and has been validated for use at [facility]. Negative results do not preclude RSV infections, and should not be used as the sole basis for diagnosis, treatment, or other management decisions. If Influenza A/B and RSV PCR results are negative, testing for Parainfluenza virus, Adenovirus and Metapneumovirus is routinely performed for pediatric oncology and intensive care inpatients at [facility], and is available on other patients by placing an add-on request. [facility] SARS-CoV-2 (COVID-19) RNA NA A+probe Ql (Resp)Ordered By: Rae Marcelino on 10-11-2023 Interpretation and review of laboratory results Abnormal [facility] This assay has received FDA Emergency [...] and has been validated for use at [facility]. Negative results do not preclude COVID-19 infections and should not be used as the sole basis for diagnosis, treatment, or other management decisions. [facility] SST TOPon 10-11-2023 Extra Tube Hold for add-ons. [facility] Comment on above: Auto resulted. [facility] Sars-CoV-2 PCR, SymptomaticO rdered By: Rae Marcelino on 10-11-2023 SARS-CoV-2 (COVID-19) RNA ALICE+probe Ql (Resp) Detected Abnormal Not Detected [facility] Tropinin I.cardiac panel Hig h sensitivity methodon 10-11-2023 Interpretation and review of laboratory results Abnormal [facility] Less than 99th percentile of normal [...] performed using a different testing methodology at [facility] than at other [facility]. Direct result comparisons should only be made within the same method. [facility] Interpretation and review of laboratory results Abnormal [facility] Less than 99th percentile of normal [...] performed using a different testing methodology at [facility] than at other [facility]. Direct result comparisons should only be made within the same method. [facility] Troponin I, High Sensitivity , Initialon 10-11-2023 Tropinin I.cardiac panel High sensitivity method 102 ng/L Critically high 0 - 20 ng/L [facility] Troponin, High Sensitivity, 1 Houron 10-11-2023 Tropinin I.cardiac panel High sensitivity method 354 ng/L Critically high 0 - 20 ng/L [facility] Comment on above: Previous result adami gera on 10/11/2023 0209 on specimen/case [id number] called with component [facility] for procedure Troponin I, High Sensitivity, Initial with value 102 ng/L. US Heart TransthoracicOrdere d By: Jose Enrique Molina on 10-11-2023 LA vol index A/L 25.[address] [facility] Work Phone: LV A4C EF 45.6 [facility] Work Phone: LV biplane EF 44 [facility] Work Phone: LVIDd 3.70 [facility] Work Phone: LVOT diam 1.80 [facility] Work Phone: [facility] Work Phone: [place] [address] [phone], TRANSTHORACIC ECHOCARDIOGRAM REPORT Patient Name: ENOC GRANTRE Reading Physician: [id number] Jose Enrique Molina MD Study Date: 10/11/2023 Ordering Provider: [id number] VERA RIVERA MRN/PID: [id number] Fellow: Nurse: Jana See RN Date of /Age: 2 1945 / 77 years Shine Worker: Cecilio Gabriel RDCS Gender: M Additional Staff: Height: 170.18 cm Admit Date: Weight: 71.67 kg Admission Status: Inpatient - Routine BSA: 1.83 m2 Department Location: [address]-ICU Blood Pressure: 141 /71 mmHg Study Type: TRANSTHORACIC ECHO (TTE) COMPLETE Diagnosis/ICD: Acute on chronic systolic (congestive) heart failure (CHF)-I50.23 CPT Codes: Echo Complete w Full Doppler-81760 Study Detail: The following Echo studies were [...] LA Area A2C: 16.2 cm2 LA Major Randolph A4C: 5.3 cm LA Major Randolph A2C: 5.0 cm LA Volume Index: 23.9 ml/m2 LA Vol A4C: 43.7 ml LA Vol A2C: 43.3 ml LV SYSTOLIC FUNCTION BY 2D PLANIMETRY (MOD): Normal Ranges: EF-A4C View: 45.6 % (>=55%) EF-A2C View: 40.9 % EF-Biplane: 44.2 % AORTIC VALVE: Normal Ranges: LVOT Diameter: 1.80 cm (1.8-2.4cm) RIGHT VENTRICLE: RV Basal 3.49 cm RV Mid 2.45 cm RV Major 7.8 cm [id number] Jose Enrique Molina MD Electronically signed on 10/11/2023 at 9:43:19 AM Final Jose Enrique Gardiner MD - 10/11/2023 [place] [address] [phone], TRANSTHORACIC ECHOCARDIOGRAM REPORT Patient Name: ENOC ARMANDO Reading Physician: [id number] Jose Enrique Molina MD Study Date: 10/11/2023 Ordering Provider: [id number] VERA RIVERA MRN/PID: [id number] Fellow: Nurse: Jana See RN Date of /Age: 2 1945 / 77 years Shine Worker: Cecilio Gabriel RDCS Gender: M Additional Staff: Height: 170.18 cm Admit Date: Weight: 71.67 kg Admission Status: Inpatient - Routine BSA: 1.83 m2 Department Location: [address]-ICU Blood Pressure: 141 /71 mmHg Study Type: TRANSTHORACIC ECHO (TTE) COMPLETE Diagnosis/ICD: Acute on chronic systolic (congestive) heart failure (CHF)-I50.23 CPT Codes: Echo Complete w Full Doppler-61628 Study Detail: The following Echo studies were [...] LA Area A2C: 16.2 cm2 LA Major Randolph A4C: 5.3 cm LA Major Randolph A2C: 5.0 cm LA Volume Index: 23.9 ml/m2 LA Vol A4C: 43.7 ml LA Vol A2C: 43.3 ml LV SYSTOLIC FUNCTION BY 2D PLANIMETRY (MOD): Normal Ranges: EF-A4C View: 45.6 % (>=55%) EF-A2C View: 40.9 % EF-Biplane: 44.2 % AORTIC VALVE: Normal Ranges: LVOT Diameter: 1.80 cm (1.8-2.4cm) RIGHT VENTRICLE: RV Basal 3.49 cm RV Mid 2.45 cm RV Major 7.8 cm [id number] Jose Enrique Molina MD Electronically signed on 10/11/2023 at 9:43:19 AM Final [facility] Work Phone: Urinalysis complete W Reflex Culture panel (U)on 10-11-2023 Hyaline casts Auto (Urine sed) [#/Area] OCCASIONAL Abnormal NONE /LPF [facility] Interpretation and review of laboratory results Abnormal [facility] RBC Auto (Urine sed) [#/Area] NONE NONE, 1-2, 3-5 /HPF [facility] WBC Auto (Urine sed) [#/Area] NONE 1-5, NONE /HPF [facility] Appearance (U) Clear Clear [facility] Work Phone: [phone] Bilirubin (U) [Mass/Vol] Negative NEGATIVE [facility] Work Phone: [phone] Color (U) Yellow Straw, Yellow [facility] Work Phone: [phone] Glucose Auto test strip (U) [Mass/Vol] >=500 (3+) Abnormal NEGATIVE mg/dL [facility] Work Phone: [phone] Interpretation and review of laboratory results Abnormal [facility] Work Phone: [phone] Ketones (U) [Mass/Vol] 5 (TRACE) Abnormal NEGAT FRANK mg/dL [facility] Work Phone: [phone] Leukocyte esterase Auto test strip Ql (U) Negative NEGATIVE [facility] Work Phone: [phone] Nitrite Auto test strip Ql (U) Negative NEGATIVE [facility] Work Phone: pH (U) 5.0 [pH] 5.0, 5.5, 6.0, 6.5, 7.0, 7.5, 8.0 [facility] Work Phone: Protein (U) [Mass/Vol] 100 (2+) Abnormal NEGAT FRANK mg/dL [facility] Work Phone: RBC (U) [#/Vol] Negative NEGATIVE [facility] Work Phone: Specific gravity (U) [Rel density] 1.014 1.005 - 1.035 [facility] Work Phone: Urobilinogen (U) [Mass/Vol] mg/dL [facility] - 2.0 mg/dL [facility] Work Phone: [facility] Work Phone: XR Chest Single viewon 10-11 1. Diffuse interstitial and scattered hazy opacities. These are nonspecific and may represent atypical infectious or inflammatory process or possibly edema in the appropriate clinical setting. Component may also be related to chronic parenchymal changes. Recommend follow-up to resolution. Signed by: Kahlil Fagan 10/11/2023 1:33 AM Dictation workstation: [id number] Interpreted By: Kahlil Fagan, STUDY: XR CHEST 1 VIEW; 10/11/2023 1:30 am INDICATION: Signs/Symptoms:Cough . COMPARISON: Chest radiograph 11/04/2012 ACCESSION NUMBER(S): [id number] ORDERING CLINICIAN: AURY ROUSE FINDINGS: SUPPORT DEVICES: [...] . COMPARISON: Chest radiograph 11/04/2012 ACCESSION NUMBER(S): [id number] ORDERING CLINICIAN: AURY ROUSE FINDINGS: SUPPORT DEVICES: [...] Kahlil Fagan 10/11/2023 1:33 AM Dictation workstation: [id number] [facility] Work Phone: Radiology Study observation (narrative) [facility] Work Phone: XR Chest Single viewOrdered By: Kahlil Fagan on 10-11-2023 [facility] Work Phone: US RENAL BILATon 07-30-2023 US RENAL BILAT Patient Name: ENOC ARMANDO STUDY: US RENAL BILAT 07/30/2023 1:11 pm INDICATION: 77 y/o M with CKD N18.9: CKD (chronic kidney disease). COMPARISON: None. ACCESSION NUMBER(S): [id number] ORDERING CLINICIAN: AYANNA ALBERT TECHNIQUE: Grayscale imaging [...] Electronically signed by: TENNILLE MAHARAJ MD Normal [facility] Therapy Communicationon 07-03 Therapy Communication Message ENOC ARMANDO was (D/C)- last seen: 01/25/23. Pt self-discharged from skilled Physical Therapy at this time. Pt was not able to be fully re-assessed due to self-discharging and not attending final re-evaluation appointment. Refer back in future if necessary. Signatures Electronically signed by : Carlene Whitehead PT; Jul 29 2023 5:06PM EST (Author) Normal nothingGrinder Initial Visit (Nephrology)on 07-27-2023 Initial Visit (Nephrology) Diagnoses/Problems Arthritis (716.90) (M19.90) CKD (chronic kidney disease) (585.9) (N18.9) Diabetic neuropathy (250.60,357.2) (E11.40) HTN (hypertension) (401.9) (I10) T1DM (type 1 diabetes mellitus) (250.01) (E10.9) Orders Albumin, Urine Spot; Status:Active; Requested for:[id number]; Basic Metabolic Panel; Status:Active; Requested for:98Mwn7276; Magnesium, Serum; Status:Active; Requested for:17Yhk6059; Parathormone Intact, Serum; Status:Active; Requested for:62Wlo4327; Phosphorus, Serum; Status:Active; Requested for:60Nqq0896; Ultrasound Kidney Bilateral; Status:Hold For - Scheduling; Requested for:80Yxo1202; Radiologist to Determine Optimal Study : Y What are the patient's signs and symptoms? : CKD Uric Acid, Serum; Status:Active; Requested for:00Bmy5971; Urinalysis; Status:Active; Requested for:50Dtv5532; Vitamin D 25-Hydroxy; Status:Need Information - ABN Disposition; Requested for:17Aua5822; Patient Discussion/Summary Issues: 1. Chronic kidney disease [...] diabetes Microalbuminuria Dyslipidemia Nicotine Abuse Chief Complaint CORRECTIONAL LIEUTENANT- REFERRED BY GERMAIN ORTEGA FOR CKD History [...] Capsule1 capsule daily Vitals Vital Signs Recorded: 46Mxz7108 02:48PMRecorded: 44Glq7184 02:45PM Arcwpkxe234, XXQ829, LUE, Sitting Eeqybbttl68 (more content not included)... Normal nothingGrinder Tobacco Screening.on 023 Fall risk assessment b) One or more fall s in the last year [facility] Work Phone: Tobacco use status [facility]PHS a) Yes U [facility] Work Phone: COMPREHENSIVE PANELon 2022 Albumin [Mass/Vol] 3.7 g/dL Normal 3.4 - 5.0 [facility] Comment on above: Performed By: #### C MP #### [address] [address] ALP [Catalytic activity/Vol] 80 U/L Normal 33 - 136 [facility] Comment on above: Performed By: #### C MP #### [address] [address] ALT [Catalytic activity/Vol] 12 U/L Normal 10 - 52 [facility] Comment on above: Result Comment: Twila ents treated with Sulfasalazine may generate falsely decreased results for ALT. Performed By: #### C MP #### [address] [address] Anion gap [Moles/Vol] 10 mmol/L Normal 10 - 20 [facility] Comment on above: Performed By: #### C MP #### [address] [address] AST [Catalytic activity/Vol] 16 U/L Normal 9 - 39 [facility] Comment on above: Performed By: #### C MP #### [address] [address] Bilirubin [Mass/Vol] 0.5 mg/dL Normal 0.0 - 1.2 [facility] Comment on above: Performed By: #### C MP #### [address] [address] Calcium [Mass/Vol] 8.9 mg/dL Normal 8.6 - 10.3 [facility] Comment on above: Performed By: #### C MP #### [address] [address] Chloride [Moles/Vol] 107 mmol/L Normal 98 - 107 [facility] Comment on above: Performed By: #### C MP #### [address] [address] Creatinine [Mass/Vol] 1.85 mg/dL High 0.50 - 1.30 [facility] Comment on above: Performed By: #### C MP #### [address] [address] GFR/1.73 sq M.predicted among non-blacks MDRD (S/P/Bld) [Vol rate/Area] 36 mL/min/{1.73_m2} Abnormal >90 [facility] Comment on above: Result Comment: CALC ULATIONS OF ESTIMATED GFR ARE PERFORMED USING THE 2020 CKD-EPI STUDY REFIT EQUATION WITHOUT THE RACE VARIABLE FOR THE IDMS-TRACEABLE CREATININE METHODS. https://jasn.asnjournals.org/content///ASN.20 05837370 Performed By: #### C MP #### [address] [address] Glucose [Mass/Vol] 347 mg/dL High 74 - 99 [facility] Comment on above: Performed By: #### C MP #### [address] [address] HCO3 (Bld) [Moles/Vol] 27 mmol/L Normal 21 - 32 [facility] Comment on above: Performed By: #### C MP #### [address] [address] Potassium [Moles/Vol] 4.4 mmol/L Normal 3.5 - 5.3 [facility] Comment on above: Performed By: #### C MP #### [address] [address] Protein [Mass/Vol] 6.0 g/dL Low 6.4 - 8.2 [facility] Comment on above: Performed By: #### C MP #### [address] [address] Sodium [Moles/Vol] 140 mmol/L Normal 136 - 145 [facility] Comment on above: Performed By: #### C MP #### [address] [address] Urea nitrogen [Mass/Vol] 31 mg/dL High 6 - 23 [facility] Comment on above: Performed By: #### C MP #### [address] [address] HEMOGLOBIN A1Con 06-11-2023 Glucose [Mass/Vol] 171 mg/dL Normal [facility] Comment on above: Performed By: #### H BA1E #### [address] [address] HbA1c (Bld) [Mass fraction] 7.6 % Abnormal [facility] Comment on above: Result Comment: Diag nosis of Diabetes-Adults Non-Diabetic: < or = 5.6% Increased risk for developing diabetes: 5.7-6.4% Diagnostic of diabetes: > or = 6.5% . Monitoring of Diabetes Age (y) Therapeutic Goal (%) Adults: >18 <7.0 Pediatrics: 13-18 <7.5 7-12 <8.0 0- 6 7.5-8.5 [place] [employer]. Diabetes Care 33(S1), Nov 2009. Performed By: #### H BA1E #### [address] [address] ALBUMIN, URINE SPOTon 2022 ALBUMIN,URINE 195.3 mg/L Normal Not Established [facility] Comment on above: Performed By: #### A LBSP ####[id number] [place] [address] ALBUMIN/CREAT RATIO 212.5 ug/mg ultrasonic cleaner High 0.0 - 30.0 [facility] Comment on above: Performed By: #### A LBSP ####[id number] [place] [address] CREATININE,URINE 91.9 mg/dL Normal 20.0 - 370.0 [facility] Comment on above: Performed By: #### A LBSP ####[id number] [place] [address] CBC AND DIFFERENTIALon 02-12 % AUTOMATED IMMATURE GRAN 0.3 % Normal 0.0 - 0.9 [facility] Comment on above: Result Comment: Arielle ture Granulocyte Count (IG) includes promyelocytes, myelocytes and metamyelocytes but does not include bands. Percent differential counts (%) should be interpreted in the context of the absolute cell counts (cells/L). Performed By: #### C BCDF #### [address] [address] Basophils (Bld) [#/Vol] 0.09 10*3/uL Normal 0.00 - 0.1 0 [facility] Comment on above: Performed By: #### C BCDF #### [address] [address] Basophils/100 WBC (Bld) 1.2 % Normal 0.0 - 2.0 [facility] Comment on above: Performed By: #### C BCDF #### [address] [address] Eosinophils (Bld) [#/Vol] 0.40 10*3/uL Normal 0.00 - 0 .40 [facility] Comment on above: Performed By: #### C BCDF #### [address] [address] Eosinophils/100 WBC (Bld) 5.2 % Normal 0.0 - 6.0 [facility] Comment on above: Performed By: #### C BCDF #### [address] [address] Erythrocyte distribution width (RBC) [Ratio] 13.1 % Normal 11.5 - 14.5 [facility] Comment on above: Performed By: #### C BCDF #### [address] [address] Hematocrit (Bld) [Volume fraction] 39.5 % Low 41.0 - 52.0 [facility] Comment on above: Performed By: #### C BCDF #### [address] [address] Hemoglobin (Bld) [Mass/Vol] 12.6 g/dL Low 13.5 - 17.5 [facility] Comment on above: Performed By: #### C BCDF #### [address] [address] Lymphocytes (Bld) [#/Vol] 1.68 10*3/uL Normal 0.80 - 3 .00 [facility] Comment on above: Performed By: #### C BCDF #### [address] [address] Lymphocytes/100 WBC (Bld) 21.9 % Normal 13.0 - 44. 0 [facility] Comment on above: Performed By: #### C BCDF #### [address] [address] MCHC (RBC) [Mass/Vol] 31.9 g/dL Low 32.0 - 36.0 [facility] Comment on above: Performed By: #### C BCDF #### [address] [address] MCV (RBC) [Entitic vol] 95 fL Normal 80 - [address] [facility] Comment on above: Performed By: #### C BCDF #### [address] [address] Monocytes (Bld) [#/Vol] 0.57 10*3/uL Normal 0.05 - 0.8 0 [facility] Comment on above: Performed By: #### C BCDF #### [address] [address] Monocytes/100 WBC (Bld) 7.4 % Normal 2.0 - 10.[address] [facility] Comment on above: Performed By: #### C BCDF #### [address] [address] Neutrophils (Bld) [#/Vol] 4.91 10*3/uL Normal 1.60 - 5 .50 [facility] Comment on above: Result Comment: Perc ent differential counts (%) should be interpreted in the context of the absolute cell counts (cells/L). Performed By: #### C BCDF #### [address] [address] Neutrophils/100 WBC (Bld) 64.0 % Normal 40.0 - 80. 0 [facility] Comment on above: Performed By: #### C BCDF #### [address] [address] Platelets (Bld) [#/Vol] 229 10*3/uL Normal 150 - 450 [facility] Comment on above: Performed By: #### C BCDF #### [address] [address] RBC 4.18 x10E12/L Low 4.50 - 5.90 [facility] Comment on above: Performed By: #### C BCDF #### [address] [address] WBC (Bld) [#/Vol] 7.7 10*3/uL Normal 4.4 - 11.3 [facility] Comment on above: Performed By: #### C BCDF #### [address] [address] COMPREHENSIVE PANELon 2022 Albumin [Mass/Vol] 4.0 g/dL Normal 3.4 - 5.0 [facility] Comment on above: Performed By: #### C MP #### [address] [address] ALP [Catalytic activity/Vol] 79 U/L Normal 33 - 136 [facility] Comment on above: Performed By: #### C MP #### [address] [address] ALT [Catalytic activity/Vol] 12 U/L Normal 10 - 52 [facility] Comment on above: Result Comment: Twila ents treated with Sulfasalazine may generate falsely decreased results for ALT. Performed By: #### C MP #### [address] [address] Anion gap [Moles/Vol] 10 mmol/L Normal 10 - 20 [facility] Comment on above: Performed By: #### C MP #### [address] [address] AST [Catalytic activity/Vol] 13 U/L Normal 9 - 39 [facility] Comment on above: Performed By: #### C MP #### [address] [address] Bilirubin [Mass/Vol] 0.6 mg/dL Normal 0.0 - 1.2 [facility] Comment on above: Performed By: #### C MP #### [address] [address] Calcium [Mass/Vol] 9.4 mg/dL Normal 8.6 - 10.3 [facility] Comment on above: Performed By: #### C MP #### [address] [address] Chloride [Moles/Vol] 105 mmol/L Normal 98 - 107 [facility] Comment on above: Performed By: #### C MP #### [address] [address] Creatinine [Mass/Vol] 1.69 mg/dL High 0.50 - 1.30 [facility] Comment on above: Performed By: #### C MP #### [address] [address] GFR/1.73 sq M.predicted among non-blacks MDRD (S/P/Bld) [Vol rate/Area] 41 mL/min/{1.73_m2} Abnormal >90 [facility] Comment on above: Result Comment: CALC ULATIONS OF ESTIMATED GFR ARE PERFORMED USING THE 2020 CKD-EPI STUDY REFIT EQUATION WITHOUT THE RACE VARIABLE FOR THE IDMS-TRACEABLE CREATININE METHODS. https://jasn.asnjournals.org/content//ASN.20 42638512 Performed By: #### C MP #### [address] [address] Glucose [Mass/Vol] 253 mg/dL High 74 - 99 [facility] Comment on above: Performed By: #### C MP #### [address] [address] HCO3 (Bld) [Moles/Vol] 28 mmol/L Normal 21 - 32 [facility] Comment on above: Performed By: #### C MP #### [address] [address] Potassium [Moles/Vol] 4.8 mmol/L Normal 3.5 - 5.3 [facility] Comment on above: Performed By: #### C MP #### [address] [address] Protein [Mass/Vol] 6.4 g/dL Normal 6.4 - 8.2 [facility] Comment on above: Performed By: #### C MP #### [address] [address] Sodium [Moles/Vol] 138 mmol/L Normal 136 - 145 [facility] Comment on above: Performed By: #### C MP #### [address] [address] Urea nitrogen [Mass/Vol] 25 mg/dL High 6 - 23 [facility] Comment on above: Performed By: #### C MP #### [address] [address] HEMOGLOBIN A1Con 02-12-2023 Glucose [Mass/Vol] 174 mg/dL Normal [facility] Comment on above: Performed By: #### H BA1E #### [address] [address] HbA1c (Bld) [Mass fraction] 7.7 % Abnormal [facility] Comment on above: Result Comment: Diag nosis of Diabetes-Adults Non-Diabetic: < or = 5.6% Increased risk for developing diabetes: 5.7-6.4% Diagnostic of diabetes: > or = 6.5% . Monitoring of Diabetes Age (y) Therapeutic Goal (%) Adults: >18 <7.0 Pediatrics: 13-18 <7.5 7-12 <8.0 0- 6 7.5-8.5 [employer] [place] [employer]. Diabetes Care 33(S1), Nov 2009. Performed By: #### H BA1E #### [address] [address] LIPID PANEL (CORONARY RISK 2 )on 02-12-2023 Cholesterol [Mass/Vol] 154 mg/dL Normal 0 - 199 [facility] Comment on above: Result Comment: . [...] Performed By: #### L IPID #### [address] [address] Cholesterol in HDL [Mass/Vol] 43.0 mg/dL Normal [facility] Comment on above: Result Comment: . AGE VERY LOW LOW NORMAL HIGH 0-19 Y < 35 < 40 40-45 ---- 20-24 Y ---- < 40 >45 ---- >24 Y ---- < 40 40-60 >60 . Performed By: #### L IPID #### [address] [address] Cholesterol in LDL [Mass/Vol] 96 mg/dL Normal 0 - 99 [facility] Comment on above: Result Comment: . NEAR BORD AGE DESIRABLE OPTIMAL HIGH HIGH VERY HIGH 0-19 Y 0 - 109 --- 110-129 >/= 130 ---- 20-24 Y 0 - 119 --- 120-159 >/= 160 ---- >24 Y 0 - 99 100-129 130-159 160-189 >/=190 . Performed By: #### L IPID #### [address] [address] Cholesterol in VLDL [Mass/Vol] 15 mg/dL Normal 0 - 40 [facility] Comment on above: Performed By: #### L IPID #### [address] [address] Cholesterol.total/Cholest santos in HDL [Mass ratio] 3.6 {ratio} Normal [facility] Comment on above: Result Comment: REF VALUES DESIRABLE < 3.4 HIGH RISK > 5.0 Performed By: #### L IPID #### [address] [address] Triglyceride [Mass/Vol] 77 mg/dL Normal 0 - [address] [facility] Comment on above: Result Comment: . [...] Performed By: #### L IPID #### [address] [address] PROSTATE SPEC.AG,SCREENon PROSTATE SPEC.AG,SCREEN 3.14 ng/mL Normal 0.00 - 4.00 [facility] Comment on above: Result Comment: The FDA requires that the method used for PSA assay be reported to the physician. Values obtained with different assay methods must not be used interchangeably. This test was performed at [facility] using the Cognia PSA assay is a two-site immunoenzymatic sandwich assay. The assay is approved for measurement of prostate-specific antigen (PSA)in serum and may be used in conjunction with a digital rectal examination in men 50 years and older as an aid in detection of prostate cancer. 4-Imlxu-wggjdgrhp inhibitors (e.g. Proscar, Finasteride, Avodart, Dutasteride and Alma Rosa) for the treatment of BPH have been shown to lower PSA levels by an average of 50% after 6 months of treatment. Performed By: #### P [facility] #### [place] [address] THYROXINE,FREEon 02-12-2023 THYROXINE,FREE 1.16 ng/dL High 0.61 - 1.12 [facility] Comment on above: Result Comment: Thyr oxine Free testing is performed using different testing methodology at [facility] than at other [facility]. Direct result comparisons should only be [...] Performed By: #### T 4FRE #### [address] [address] TSHon 02-12-2023 TSH Qn 0.73 m[IU]/L Normal 0.44 - 3.98 [facility] [place] Comment on above: Result Comment: TSH testing is performed using different testing methodology at [facility] than at other [facility]. Direct result comparisons should only be made within the same method. Performed By: #### T SH2 #### [address] [address] PT Progress Noteon 3 PT Progress Note [...] . the patient will continue therapy at [facility]. Potential to achieve rehab goals is fair: [...] Declined. Insurance Insurance reviewed Visit number: 10 [facility] Evaluating therapist Shoaib Bhandari PT. The physical [...] code time is 30 minutes. Therapeutic exercise (86744):. Not Today 01/25/23 NuStep 5? Slant board [...] 10 x 10? hold (N). Manual Therapy (49575): timed minutes 15, units 1 . STW [...] . the patient will continue therapy at [facility]. Potential to achieve rehab goals is fair: [...] Declined. Insurance Insurance reviewed Visit number: 9 [facility] Evaluating therapist Shoaib Bhandari PT. The physical [...] code time is 35 minutes. Therapeutic exercise (77750): timed minutes 20, units 1 . Pt [...] wit (more content not included)... Normal [facility] Therapy Re-eval Noteon 01-18 Therapy Re-eval Note [...] . the patient will continue therapy at [facility]. Potential to achieve rehab goals is fair: [...] Declined. Insurance Insurance reviewed Visit number: 9 [facility] Evaluating therapist Shoaib Bhandari PT. The physical [...] code time is 35 minutes. Therapeutic exercise (98240): timed minutes 20, units 1 . Pt [...] disc chops (more content not included)... Normal nothingGrinder PT Progress Noteon 3 PT Progress Note [...] . the patient will continue therapy at [facility]. Potential to achieve rehab goals is fair: [...] Declined. Insurance Insurance reviewed Visit number: 8 [facility] Evaluating therapist Shoaib Bhandari PT. The physical [...] code time is 38 minutes. Therapeutic exercise (41095): timed minutes 26, units 2 . NuStep [...] 30? D/C to HEP . Manual Therapy (39098): timed minutes 12, units 1 . STW to glutes and QL and IT band. Provided today:. 12/25/22 [id number] Provided and reviewed HEP, patient demosntrated good [...] . the patient will continue therapy at [facility]. Potential to achieve rehab goals is fair: [...] Declined. Insurance Insurance reviewed Visit number: 7 [facility] Evaluating therapist Shoaib Bhandari PT. The physical [...] code time is 38 minutes. Therapeutic exercise (38028): timed minutes 26, units 2 . NuStep [...] 30? D/C to HEP . Manual Therapy (11479): timed minutes 12, units 1 . STW to glutes and QL and IT band. Provided today:. 12/25/22 [id number] Provided and reviewed HEP, patient demosntrated good understanding. 'Scores and Scales' Signatures Electronically signed by : Chaya Chan, STUDENT LIFE COORDINATOR; Jan 13 2023 11:01AM EST (Author) Electronically [...] . the patient will continue therapy at [facility]. Potential to achieve rehab goals is fair: [...] Declined. Insurance Insurance reviewed Visit number: 6 [facility] Evaluating therapist Shoaib Bhandari PT. The physical [...] code time is 43 minutes. Therapeutic exercise (20911): timed minutes 32, units 2 . NuStep [...] x 10 Green band . Manual Therapy (82352): timed minutes 11, units 1 . STW to glutes and QL 10'. Provided today:. 12/25/22 [id number] Provided and reviewed HEP, patient demosntrated good understanding. 'Scores and Scales' Signatures Electronically signed by : Chaya Chan, STUDENT LIFE COORDINATOR; Jan 08 2023 10:51AM EST (Author) Electronically [...] . the patient will continue therapy at [facility]. Potential to achieve rehab goals is fair: [...] Declined. Insurance Insurance reviewed Visit number: 5 [facility] Evaluating therapist Shoaib Bhandari PT. The physical [...] code time is 44 minutes. Therapeutic exercise (24601): timed minutes 34, units 2 . NuStep [...] 10 Green band (N) . Manual Therapy (85434): timed minutes 10, units 1 . STW to glutes and QL 10'. Provided today:. 12/25/22 [id number] Provided and reviewed HEP, patient demosntrated good [...] . the patient will continue therapy at [facility]. Potential to achieve rehab goals is fair: [...] Declined. Insurance Insurance reviewed Visit number: 4 [facility] Evaluating therapist Shoaib Bhandari PT. The physical [...] code time is 44 minutes. Therapeutic exercise (34002): timed minutes 34, units 2 . NuStep [...] x 10 orange band . Manual Therapy (98045): timed minutes 10, units 1 . STW to glutes and QL 10'. Provided today:. 12/25/22 [id number] Provided and reviewed HEP, patient demosntrated good understanding. 'Scores and Scales' Signatures Electronically signed by : Zoila Lopez, STUDENT LIFE COORDINATOR; Jan 01 2023 12:56PM EST (Author) Electronically [...] . the patient will continue therapy at [facility]. Potential to achieve rehab goals is fair: [...] code time is 44 minutes. Therapeutic exercise (41711): timed minutes 34, units 2 . NuStep [...] x 10 orange band . Manual Therapy (00196): timed minutes 10, units 1 . STW to glutes and QL 10'. Provided today:. 12/25/22 [id number] Provided and reviewed HEP, patient demosntrated good understanding. 'Scores and Scales' Signatures Electronically signed by : Zoila Lopez, STUDENT LIFE COORDINATOR; Dec 30 2022 5:01PM EST (Author) Electronically [...] . the patient will continue therapy at [facility]. Potential to achieve rehab goals is fair: [...] Declined. Insurance Insurance reviewed Visit number: 2 [facility] Evaluating therapist Shoaib Bhandari PT. The physical [...] code time is 41 minutes. Therapeutic exercise (16196): timed minutes 31, units 2 . NuStep 5? start wall lean n mini squat x10 LTR x10 5? hold Piriformis stretch 3 x 30? Supine QL stretch 3 x 30? Hip flex stretch EOB TrA x10 5? hold Hooklying TrA/hip add ball 2 x 10 3? hold Hooklying TrA/hip abd 2 x 10 orange band . Manual Therapy (54124): timed minutes 10, units 1 . STW to gluts and QL. Provided today:. 12/25/22 [id number] Provided and reviewed HEP, patient demosntrated good understanding. 'Scores and Scales' Signatures Electronically signed by : Chaya Chan STUDENT LIFE COORDINATOR; Dec 25 2022 10:14AM EST (Author) Electronically signed by : Carlene Whitehead PT; Jan 17 2023 3:06PM EST Normal nothingGrinder PT Initial Evaluationon 12-03 PT Initial Evaluation [...] . the patient will continue therapy at [facility]. 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 Assessment At least a 5 yr HX of LBP (previous HX of sciatica). No recent film studies have been done. He will be a low fall risk. The patient will continue his therapy at [facility]. Physical findings include limited trunk ROM with [...] Declined. Insurance Insurance reviewed Visit number: 1 [facility] Evaluating therapist Shoaib Bhandari PT. The physical [...] Impact Care:. ID confirmed with B-day; speaks mosotho No obtrusive barriers to learning identified/observed. Objective [...] Date: 02/26/2021 1:55 PM Patient Status: Outpatient Schedule Planning Manager: Melissa Swift, TAMMI, RDMS (AB), RVT Referring Physician: MARY VARGAS ; Indications I65.23 - Occlusion and stenosis of bilateral carotid arteries Procedure Description 71302 Duplex examination using B-mode, color and spectral [...] noted in the (more content not included)... [facility] Interface, Rad In Heartlab Xper Echopacs - 02/26/2021 4:33 PM EDT Patient Info Name: ENOC ARMANDO Age: 75 years : 1945 Gender: Male Exam Date: 02/26/2021 1:55 PM Patient Status: Outpatient Schedule Planning Manager: Melissa Swift, BS, RDMS (AB), RVT Referring Physician: MARY VARGAS ; Indications I65.23 - Occlusion and stenosis of bilateral carotid arteries Procedure Description 19280 Duplex examination using B-mode, color and spectral [...] JO-ANN Nguyen DO on 02/26/2021 04:31 PM [facility] Auto Diffon 07-04-2019 Basophils (Bld) [#/Vol] 0.1 E3/mcL Normal 0.0-0.2 [facility] Comment on above: Order Comment: Order Added by Discern Expert. Performed By: #### 2 [id number] #### MI[facility] [employer] [address] [place] [address] Basophils/100 WBC (Bld) 1.2 % Normal 0.0-2.0 [facility] Comment on above: Order Comment: Order Added by Discern Expert. Performed By: #### 2 069992 #### [facility] [employer] [address] [place] [address] Eos Absolute 0.2 E3/mcL Normal 0.0-0.7 [facility] Comment on above: Order Comment: Order Added by Discern Expert. Performed By: #### 2 763293 #### MIKE Rodriguez[address] [address] Eosinophils/100 WBC (Bld) 2.0 % Normal 0.0-11.0 [facility] Comment on above: Order Comment: Order Added by Discern Expert. Performed By: #### 2 053921 #### MIKE [address] [address] Lymphocytes (Bld) [#/Vol] 1.7 E3/mcL Normal 1.2-3.4 [facility] Comment on above: Order Comment: Order Added by Discern Expert. Performed By: #### 2 737835 #### MIKE [address] [address] Lymphocytes/100 WBC (Bld) 20.9 % Normal 20.0-55.0 [facility] Comment on above: Order Comment: Order Added by Discern Expert. Performed By: #### 2 989884 #### MIKE [address] [address] [place] Absolute 0.7 E3/mcL Normal 0.0-0.7 [facility] Comment on above: Order Comment: Order Added by Discern Expert. Performed By: #### 2 711184 #### MIKE Rodriguez[address] [address] Monocytes/100 WBC (Bld) 8.0 % Normal 0.0-10.0 [facility] Comment on above: Order Comment: Order Added by Discern Expert. Performed By: #### 2 492398 #### MIKE [address] [address] Neutro Absolute 5.5 E3/mcL Normal 1.4-6.5 [facility] Comment on above: Order Comment: Order Added by Discern Expert. Performed By: #### 2 [id number] #### MIKE [address] [address] Neutro Auto 67.9 % Normal 37.0-75.0 [facility] Comment on above: Order Comment: Order Added by Discern Expert. Performed By: #### 2 248196 #### MIKE [address] [address] CBC w/ Auto Diffon 09-03-201 9 Erythrocyte distribution width (RBC) [Ratio] 13.3 % Normal 11.5-14.5 [facility] Comment on above: Performed By: #### 2 081197 #### [place] [address] [place] [address] Hematocrit (Bld) [Volume fraction] 40.4 % Low 42.0-52.0 [facility] Comment on above: Performed By: #### 2 772953 #### MIKE [address] [address] Hemoglobin (Bld) [Mass/Vol] 13.6 g/dL Normal 13.5-18.0 [facility] Comment on above: Performed By: #### 2 354919 #### MIKE Rodriguez[address] [address] MCH (RBC) [Entitic mass] 31.6 pg High 27.0-31.0 [facility] Comment on above: Performed By: #### 2 773440 #### MIKE Rodriguez[address] [address] MCHC (RBC) [Mass/Vol] 33.7 g/dL Normal 33.0-37.0 [facility] Comment on above: Performed By: #### 2 656054 #### MIKE Rodriguez[address] [address] MCV (RBC) [Entitic vol] 93.8 fL Normal 78.0-100.0 [facility] Comment on above: Performed By: #### 2 379809 #### MIKE Rodriguez[address] [address] Platelet mean volume (Bld) [Entitic vol] 10.2 fL Normal 7.4-11.0 [facility] Comment on above: Performed By: #### 2 032458 #### MIKE Rodriguez[address] [address] Platelets (Bld) [#/Vol] 218 E3/mcL Normal 130-400 [facility] Comment on above: Performed By: #### 2 963317 #### MIKEAnabelle Rodriguezpsicofxp [address] [place] [address] RBC (Bld) [#/Vol] 4.31 E6/mcL Normal 3.90-6.10 [facility] Comment on above: Performed By: #### 2 726986 #### MIKE Zazueta [facility] [place] [address] WBC (Bld) [#/Vol] 8.1 E3/mcL Normal 3.6-11.0 [facility] Comment on above: Performed By: #### 2 841974 #### MIKE [facility] [place] [address] CMPon 07-04-2019 Albumin [Mass/Vol] 4.2 g/dL Normal 3.4-5.0 [facility] Comment on above: Performed By: #### 2 246462 #### MIKE Rodriguez[address] [address] Albumin/Globulin [Mass ratio] 1.8 {ratio} Normal 1.1-1.9 [facility] Comment on above: Performed By: #### 2 678362 #### MIKE Zazueta [address] [place] [address] Alk Phos 81 Int._Unit/L Normal 33-136 [facility] Comment on above: Performed By: #### 2 227623 #### MIKE [address] [address] ALT [Catalytic activity/Vol] 15 Int._Unit/L Normal 10-52 [facility] Comment on above: Performed By: #### 2 153585 #### MIKE Zazueta [facility] [place] [address] Anion gap [Moles/Vol] 12 mmol/L Normal 10-20 [facility] Comment on above: Performed By: #### 2 941009 #### MIKEAnabelle Zazueta [facility] [place] [address] AST [Catalytic activity/Vol] 18 Int._Unit/L Normal 9-39 [facility] Comment on above: Performed By: #### 2 109835 #### [place] [place] [address] Bili Total 0.35 mg/dL Normal 0.00-1.20 [facility] Comment on above: Performed By: #### 2 475517 #### MIKE [employer] [address] [place] [address] Calcium [Mass/Vol] 9.5 mg/dL Normal 8.6-10.3 [facility] Comment on above: Performed By: #### 2 177296 #### MIKE [employer] [address] [place] [address] Chloride [Moles/Vol] 108 mmol/L High 98-107 [facility] Comment on above: Performed By: #### 2 553494 #### MIKE [employer] [address] [place] [address] CO2 [Moles/Vol] 27.0 mmol/L Normal 21.0-32.0 [facility] Comment on above: Performed By: #### 2 217255 #### MIKE [employer] [address] [place] [address] Creatinine [Mass/Vol] 1.0 mg/dL Normal 0.5-1.3 [facility] Comment on above: Performed By: #### 2 291675 #### MIKE [employer] [address] [place] [address] Globulin (S) [Mass/Vol] 2.0 g/dL Normal 2.0-4.0 [facility] Comment on above: Performed By: #### 2 345895 #### MIKE [employer] [address] [place] [address] Glucose [Mass/Vol] 159 mg/dL High 70-99 [facility] Comment on above: Performed By: #### 2 830075 #### MI[facility] [employer] [address] [place] [address] Potassium [Moles/Vol] 3.7 mmol/L Normal 3.5-5.3 [facility] Comment on above: Performed By: #### 2 271430 #### MIKE [employer] [address] [place] [address] Protein [Mass/Vol] 6.5 g/dL Normal 6.4-8.2 [facility] Comment on above: Performed By: #### 2 763835 #### MIKE [employer] [address] [place] [address] Sodium [Moles/Vol] 143 mmol/L Normal 136-145 [facility] Comment on above: Performed By: #### 2 079503 #### MIKE RodriguezChem [facility] [place] [address] Urea nitrogen [Mass/Vol] 19 mg/dL Normal 6-23 [facility] Comment on above: Performed By: #### 2 365959 #### MIKE [employer]Chem [address] [place] [address] Urea nitrogen/Creatinine [Mass ratio] 19.0 ratio Normal 5.4-30.0 [facility] Comment on above: Performed By: #### 2 175624 #### [address] [place] [address] [id number] 07-04-2019 HbA1c (Bld) [Mass fraction] 8.3 % High 4.0-6.3 [facility] Comment on above: Performed By: #### 2 034228 #### MIKE [employer]Chem [address] [place] [address] eGFRon 07-04-2019 GFR/1.73 sq M predicted among non-blacks MDRD (S/P/Bld) [Vol rate/Area] mL/min/{1.73_m2} Normal [facility] Comment on above: Order Comment: Order added by Discern Expert. Performed By: #### 2 662072 #### MIKE RodriguezChem [facility] [place] [address] Auto Diffon 03-03-2019 Basophils (Bld) [#/Vol] 0.1 E3/mcL Normal 0.0-0.2 [facility] Comment on above: Order Comment: Order Added by Discern Expert. Performed By: #### 2 903367 #### MIKE RodriguezHemo [facility] [place] [address] Basophils/100 WBC (Bld) 1.0 % Normal 0.0-2.0 [facility] Comment on above: Order Comment: Order Added by Discern Expert. Performed By: #### 2 487252 #### MIKE RemHemo [address] [place] [address] Eos Absolute 0.2 E3/mcL Normal 0.0-0.7 [facility] Comment on above: Order Comment: Order Added by Discern Expert. Performed By: #### 2 655511 #### MIKE RemHemo [address] [place] [address] Eosinophils/100 WBC (Bld) 2.6 % Normal 0.0-11.0 [facility] Comment on above: Order Comment: Order Added by Discern Expert. Performed By: #### 2 052598 #### MIKE RemHemo [address] [place] [address] Lymphocytes (Bld) [#/Vol] 2.0 E3/mcL Normal 1.2-3.4 [facility] Comment on above: Order Comment: Order Added by Discern Expert. Performed By: #### 2 673273 #### MIKE RemHemo [address] [place] [address] Lymphocytes/100 WBC (Bld) 26.7 % Normal 20.0-55.0 [facility] Comment on above: Order Comment: Order Added by Discern Expert. Performed By: #### 2 877144 #### MIKE RemHemo [address] [place] [address] [place] Absolute 0.7 E3/mcL Normal 0.0-0.7 [facility] Comment on above: Order Comment: Order Added by Discern Expert. Performed By: #### 2 916361 #### MIKE RemHemo [address] [place] [address] Monocytes/100 WBC (Bld) 9.4 % Normal 0.0-10.0 [facility] Comment on above: Order Comment: Order Added by Discern Expert. Performed By: #### 2 536938 #### MIKE RemHemo [address] [place] [address] Neutro Absolute 4.5 E3/mcL Normal 1.4-6.5 [facility] Comment on above: Order Comment: Order Added by Discern Expert. Performed By: #### 2 712511 #### MIKE RemHemo [address] [place] [address] Neutro Auto 60.3 % Normal 37.0-75.0 [facility] Comment on above: Order Comment: Order Added by Discern Expert. Performed By: #### 2 249136 #### MIKE RodriguezHemo [address] [place] [address] CBC w/ Auto Diffon Erythrocyte distribution width (RBC) [Ratio] 13.2 % Normal 11.5-14.5 [facility] Comment on above: Performed By: #### 2 979089 #### MIKE RodriguezHemo [address] [place] [address] Hematocrit (Bld) [Volume fraction] 41.7 % Low 42.0-52.0 [facility] Comment on above: Performed By: #### 2 511666 #### MIKE RemHemo [address] [place] [address] Hemoglobin (Bld) [Mass/Vol] 14.1 g/dL Normal 13.5-18.0 [facility] Comment on above: Performed By: #### 2 220967 #### MIKE RodriguezHemo [address] [place] [address] MCH (RBC) [Entitic mass] 31.5 pg High 27.0-31.0 [facility] Comment on above: Performed By: #### 2 761193 #### MIKE RemHemo [address] [place] [address] MCHC (RBC) [Mass/Vol] 33.7 g/dL Normal 33.0-37.0 [facility] Comment on above: Performed By: #### 2 572989 #### MIKE RodriguezHemo [address] [place] [address] MCV (RBC) [Entitic vol] 93.5 fL Normal 78.0-100.0 [facility] Comment on above: Performed By: #### 2 011704 #### MIKE RemHemo [address] [place] [address] Platelet mean volume (Bld) [Entitic vol] 10.0 fL Normal 7.4-11.0 [facility] Comment on above: Performed By: #### 2 092816 #### MIKE RemHemo [address] [place] [address] Platelets (Bld) [#/Vol] 218 E3/mcL Normal 130-400 [facility] Comment on above: Performed By: #### 2 827465 #### MIKE RemHemo [address] [place] [address] RBC (Bld) [#/Vol] 4.46 E6/mcL Normal 3.90-6.10 [facility] Comment on above: Performed By: #### 2 898183 #### MIKE RemHemo [address] [place] [address] WBC (Bld) [#/Vol] 7.5 E3/mcL Normal 3.6-11.0 [facility] Comment on above: Performed By: #### 2 008057 #### MIKE RemHemo [address] [place] [address] CMPon 03-03-2019 Albumin [Mass/Vol] 4.1 g/dL Normal 3.4-5.0 [facility] Comment on above: Performed By: #### 2 134662 #### MIKE [employer] [address] [place], [place] [address] Albumin/Globulin [Mass ratio] 1.6 {ratio} Normal 1.1-1.9 [facility] Comment on above: Performed By: #### 2 559458 #### MIKE [employer] [address] [place] [address] Alk Phos 83 Int._Unit/L Normal 33-136 [facility] Comment on above: Performed By: #### 2 557676 #### MIKE [employer] [address] [place] [address] 96305 ALT [Catalytic activity/Vol] 13 Int._Unit/L Normal 10-52 [facility] Comment on above: Performed By: #### 2 [id number] #### [employer]KE [employer] [address] [place] [address] 76439 Anion gap [Moles/Vol] 9 mmol/L Low 10-20 [facility] Comment on above: Performed By: #### 2 [id number] #### [employer]KE [employer] [address] [place] [address] 71796 AST [Catalytic activity/Vol] 16 Int._Unit/L Normal 9-39 [facility] Comment on above: Performed By: #### 2 [id number] #### [employer]KE [employer] [address] [place] [address] 89479 Bili Total 0.55 mg/dL Normal 0.00-1.20 [facility] Comment on above: Performed By: #### 2 [id number] #### [facility] [employer] [address] [place] [address] 75803 Calcium [Mass/Vol] 9.3 mg/dL Normal 8.6-10.3 [facility] Comment on above: Performed By: #### 2 [id number] #### [employer]KE [employer] [address] [place] [address] 10697 Chloride [Moles/Vol] 105 mmol/L Normal 98-107 [facility] Comment on above: Performed By: #### 2 [id number] #### [employer]KE [employer] [address] [place] [address] 73848 CO2 [Moles/Vol] 28.0 mmol/L Normal 21.0-32.0 [facility] Comment on above: Performed By: #### 2 [id number] #### [facility] [employer] [address] [place] [address] 43223 Creatinine [Mass/Vol] 1.0 mg/dL Normal 0.5-1.3 [facility] Comment on above: Performed By: #### 2 [id number] #### [employer] [address] [place] [address] 72709 Globulin (S) [Mass/Vol] 3.0 g/dL Normal 2.0-4.0 [facility] Comment on above: Performed By: #### 2 [id number] #### [employer] [address] [place] [address] 63357 Glucose [Mass/Vol] 273 mg/dL High 70-99 [facility] Comment on above: Performed By: #### 2 [id number] #### [employer] [address] [place] [address] 85708 Potassium [Moles/Vol] 4.2 mmol/L Normal 3.5-5.3 [facility] Comment on above: Performed By: #### 2 [id number] #### [employer] [address] [place] [address] 62724 Protein [Mass/Vol] 6.6 g/dL Normal 6.4-8.2 [facility] Comment on above: Performed By: #### 2 [id number] #### [employer]KE [employer] [address] [place] [address] Sodium [Moles/Vol] 138 mmol/L Normal 136-145 [facility] Comment on above: Performed By: #### 2 [id number] #### [employer]KE [employer] [address] [place] [address] Urea nitrogen [Mass/Vol] 20 mg/dL Normal 6-23 [facility] Comment on above: Performed By: #### 2 [id number] #### [employer] [address] [place] [address] Urea nitrogen/Creatinine [Mass ratio] 20.0 ratio Normal 5.4-30.0 [facility] Comment on above: Performed By: #### 2 [id number] #### [employer] [address] [place] [address] 03175 Free T4on 03-03-2019 Free T4 [Mass/Vol] 0.98 ng/dL Normal 0.58-1.64 [facility] Comment on above: Performed By: #### 2 [id number] #### [employer] [address] [place] [address] 55605 [id number] 03-03-2019 HbA1c (Bld) [Mass fraction] 8.4 % High 4.0-6.3 [facility] Comment on above: Performed By: #### 2 [id number] #### MIKE [employer] [address] [place] [address] Lipid Profileon 03-03-2019 Cholesterol [Mass/Vol] 164 mg/dL Normal 0-199 [facility] Comment on above: Result Comment: TOTA L CHOLEESTEROL: <200 NORMAL 200 - 239 BORDERLINE HIGH >240 HIGH Performed By: #### 2 [id number] #### [employer] [address] [place] [address] Cholesterol in HDL [Mass/Vol] 53 mg/dL Normal 40-60 [facility] Comment on above: Performed By: #### 2 183654 #### [employer] [address] [place] [address] Cholesterol in LDL [Mass/Vol] 98 mg/dL Normal 0-130 [facility] Comment on above: Result Comment: <100 OPTIMAL 100-129 NEAR / ABOVE OPTIMAL 130-159 BORDERLINE HIGH 160-189 HIGH >190 VERY HIGH CALC LDL NOT VALID WHEN TRIGLYCERIDE IS >400 MG/DL Performed By: #### 2 [id number] #### MIKE GIDEEN [facility] [place] [address] Cholesterol in VLDL [Mass/Vol] 13 mg/dL Normal 0-40 [facility] Comment on above: Performed By: #### 2 [id number] #### MIKE GIDEEN [facility] [place] [address] Triglyceride [Mass/Vol] 66 mg/dL Normal 0-149 [facility] Comment on above: Result Comment: AGE DESIRABLE BORDERLINE HIGH 91 D - 9 Y 0 - 74 75 - 99 > 100 10 - 19 Y 0 - 89 90 - 129 > 130 20 -24 Y 0 - 114 115 - 149 > 150 > 25 0 - 149 150 - 199 200 - 499 Performed By: #### 2 [id number] #### MIKE GIDEEN [address] [place] [address] 33041 Microalb/Creat Ratioon 03-03 Creatinine [Mass/Vol] 111.0 mg/dL Normal 20.0-300.0 [facility] Comment on above: Performed By: #### 1 [id number] #### MIKE [employer] [address] [place] [address] 08758 Creatinine [Mass/Vol] 95 ug/mg High 0-30 [facility] Comment on above: Performed By: #### 1 [id number] #### MIKE [employer] [address] [place] [address] 69765 Ur Microalbumin 10.6 mg/dL High 0.0-1.9 [facility] Comment on above: Performed By: #### 1 [id number] #### MIKE [employer] [address] [place] [address] 78856 TSHon 03-03-2019 TSH Qn 0.52 mcIU/mL Normal 0.30-5.60 [facility] Comment on above: Performed By: #### 2 [id number] #### MIKE GIDEEN [address] [place] [address] 33835 eGFRon 03-03-2019 GFR/1.73 sq M predicted among non-blacks MDRD (S/P/Bld) [Vol rate/Area] mL/min/{1.73_m2} Normal [facility] Comment on above: Order Comment: Order added by Discern Expert. Performed By: #### 1 [id number] #### MIKE Marbin [address] [place] [id number] XR Spine Lumbosacral Complet e w/ Bendingon 02-08-2019 XR Spine Lumbosacral Complete w/ Bending Exam Date/Time: 02/08/2019 11:16 EDT Reason for Exam: M54.16 Report STUDY: XR Spine Lumbosacral Complete w/ Bending; 02/08/2019 11:16 am INDICATION: M54.16. COMPARISON: 08/12/2018 ACCESSION NUMBER(S): [id number] ORDERING CLINICIAN: Yamilex Muro FINDINGS: 8 views of the lumbar spine including supine and standing AP, lateral and lateral flexion and extension views were obtained. There is no acute fracture identified. There is mild retrolisthesis of L2 on L3 and of L3 on L4. Oanz-wp-[id number] disc space narrowing and marginal osteophyte formation [...] by: Jaret Walker MD Technologist: GEE Normal [facility] CMPon 11-02-2018 Albumin [Mass/Vol] 4.2 g/dL Normal 3.4-5.0 [facility] Comment on above: Performed By: #### 2 [id number] #### MIKE Zazueta [address] [place] [id number] Albumin/Globulin [Mass ratio] 1.8 {ratio} Normal 1.1-1.9 [facility] Comment on above: Performed By: #### 2 272059 #### MIKE Zazueta [address] [place] [address] Alk Phos 98 Int._Unit/L Normal 33-136 [facility] Comment on above: Performed By: #### 2 [id number] #### MIKE [employer] [facility] [place] [address] ALT [Catalytic activity/Vol] 18 Int._Unit/L Normal 10-52 [facility] Comment on above: Performed By: #### 2 [id number] #### [employer]KE [employer] [facility] [place] [address] Anion gap [Moles/Vol] 10 mmol/L Normal 10-20 [facility] Comment on above: Performed By: #### 2 [id number] #### MIKEAnabelle [employer] [facility] [place] [address] AST [Catalytic activity/Vol] 17 Int._Unit/L Normal 9-39 [facility] Comment on above: Performed By: #### 2 [id number] #### [employer] [facility] [place] [address] Bili Total 0.39 mg/dL Normal 0.00-1.20 [facility] Comment on above: Performed By: #### 2 137089 #### [employer] [address] [place] [address] 09005 Calcium [Mass/Vol] 9.7 mg/dL Normal 8.6-10.3 [facility] Comment on above: Performed By: #### 2 455253 #### [employer] [address] [place] [address] Chloride [Moles/Vol] 106 mmol/L Normal 98-107 [facility] Comment on above: Performed By: #### 2 643987 #### [employer] [address] [place] [address] CO2 [Moles/Vol] 27.0 mmol/L Normal 21.0-32.0 [facility] Comment on above: Performed By: #### 2 706490 #### [employer] [address] [place] [address] Creatinine [Mass/Vol] 1.2 mg/dL Normal 0.5-1.3 [facility] Comment on above: Performed By: #### 2 762103 #### [employer] [address] [place] [address] Globulin (S) [Mass/Vol] 2.0 g/dL Normal 2.0-4.0 [facility] Comment on above: Performed By: #### 2 292902 #### [employer] [address] [place] [address] Glucose [Mass/Vol] 307 mg/dL High 70-99 [facility] Comment on above: Performed By: #### 2 154541 #### [employer] [address] [place] [address] Potassium [Moles/Vol] 3.9 mmol/L Normal 3.5-5.3 [facility] Comment on above: Performed By: #### 2 [id number] #### [employer] [address] [place] [address] 50018 Protein [Mass/Vol] 6.5 g/dL Normal 6.4-8.2 [facility] Comment on above: Performed By: #### 2 [id number] #### [employer] [address] [place] [address] 48175 Sodium [Moles/Vol] 139 mmol/L Normal 136-145 [facility] Comment on above: Performed By: #### 2 [id number] #### [employer] [address] [place] [address] 99575 Urea nitrogen [Mass/Vol] 23 mg/dL Normal 6-23 [facility] Comment on above: Performed By: #### 2 453714 #### [employer] [address] [place] [address] 91562 Urea nitrogen/Creatinine [Mass ratio] 19.2 ratio Normal 5.4-30.0 [facility] Comment on above: Performed By: #### 2 [id number] #### [employer] [address] [place] [address] [id number] 11-02-2018 HbA1c (Bld) [Mass fraction] 8.4 % High 4.0-6.3 [facility] Comment on above: Performed By: #### 3 [id number] #### MIKE Chemistry Manual Subsection [address] [place] [address] 46963 eGFRon 11-02-2018 GFR/1.73 sq M predicted among non-blacks MDRD (S/P/Bld) [Vol rate/Area] mL/min/{1.73_m2} Normal [facility] Comment on above: Order Comment: Order added by Discern Expert. Performed By: #### 1 [id number] #### [employer]KE [employer] [facility] [place] [address] XR Spine Lumbar w/ Obliqueso n 08-13-2018 XR Spine Lumbar w/ Obliques Exam Date/Time: 08/12/2018 14:38 EDT Reason for Exam: low back pain with left sided sciatica Report STUDY: XR Spine Lumbar w/ Obliques; 08/12/2018 2:38 pm INDICATION: low back pain with left sided sciatica. COMPARISON: None. ACCESSION NUMBER(S): [id number] ORDERING CLINICIAN: Nancy Mirza FINDINGS: Five views of the lumbar spine including AP, lateral, lateral cone-down and bilateral oblique views were obtained. There is no acute fracture identified. There is mild retrolisthesis of L2 on L3 and of L3 on L4. Nsgc-cb-zpnaqvnl disc space narrowing and marginal osteophyte formation [...] by: Jaret Walker MD Technologist: KAVITA Normal [facility] Carotid Duplexon 02-09-2018 Carotid Duplex Non-Invasive Vascular Patient: TR [facility] Rec#: [id number] (Age): 1945(72y) Study Date: 02/09/2018 Room#: Type: Sex: M Reading: AALIYAH Reading: Flo Abdi DO, RPVI Referring: NANCY MIRZA JOHN Shine Worker: Christie Trinidad Procedure Info: [id number]... Study Quality: Carotid Duplex: adequate Diagnosis: I65.23 [...] cm/sec ECA -17.4 cm/sec Vertebral -10.3 cm/sec Enrcio EDV 23 cm/sec Left Carotid PSV Name [...] Carotid Duplex Interface, Rad In [facility] Xper [facility] - 02/09/2018 4:37 PM EDT Non-Invasive Vascular Patient: TR [facility] Rec#: [id number] (Age): 1945(72y) Study Date: 02/09/2018 Room#: Type: Sex: M Reading: AALIYAH Reading: Flo Abdi DO, RPVI Referring: NANCY MIRZA JOHN Shine Worker: Christie Trinidad Procedure Info: [id number]... Study Quality: Carotid Duplex: adequate Diagnosis: I65.23 [...] Flo Abdi DO, RPVI Invalid Interpretation Code [facility] Vital Signs Date Time Vital Sign Value Performing Clinician Facility 05-09-2025 14:42-0400 Heart rate 60 /min Ryley Jeter MD Work Phone: [facility] [place] 05-09-2025 14:28-0400 Body height 170.18 cm Ryley Jeter MD Work Phone: [facility] 05-09-2025 14:28-0400 Body weight 67.4 kg Ryley Jeter MD Work Phone: [facility] 05-09-2025 14:26-0400 Inhaled oxygen flow rate 3 L/min Ryley Jeter MD Work Phone: [facility] 05-09-2025 13:45-0400 SaO2% (BldA) [Mass fraction] 99 % Ryley Jeter MD Work Phone: [facility] 05-09-2025 11:09-0400 Respiratory rate 16 /min Ryley Jeter MD Work Phone: [facility] 05-09-2025 09:45-0400 Body temperature 97.9 [degF] Ryley Jeter MD Work Phone: [facility] 05-09-2025 09:45-0400 Diastolic blood pressure 96 mm[Hg] Ryley Jeter MD Work Phone: [facility] 05-09-2025 09:45-0400 Systolic blood pressure 133 mm[Hg] Ryley Jeter MD Work Phone: [facility] 05-09-2025 05:43-0400 Body mass index (BMI) [Ratio] 23.3 kg/m2 Ryley Jeter MD Work Phone: [facility] 05-06-2025 06:47-0400 Inhaled oxygen concentration 30 % Ryley Jeter MD Work Phone: [facility] 05-05-2025 22:00-0400 Body temperature 97.1 [degF] Ryley Jeter MD Work Phone: [facility] 05-05-2025 22:00-0400 Diastolic blood pressure 59 mm[Hg] Ryley Jeter MD Work Phone: [facility] 05-05-2025 22:00-0400 Heart rate 76 /min Ryley Jeter MD Work Phone: [facility] 05-05-2025 22:00-0400 Respiratory rate 15 /min Ryley Jeter MD Work Phone: 1(843)[phone] [place] [address] 05-05-2025 22:00-0400 SaO2% (BldA) [Mass fraction] 96 % Ryley Jeter MD Work Phone: [facility] 05-05-2025 22:00-0400 Systolic blood pressure 133 mm[Hg] Ryley Jeter MD Work Phone: [facility] 05-05-2025 20:14-0400 Inhaled oxygen concentration 50 % Ryley Jeter MD Work Phone: [facility] 05-05-2025 19:39-0400 Body height 167.64 cm Ryley Jeter MD Work Phone: [facility] 05-05-2025 19:39-0400 Body mass index (BMI) [Ratio] 23.6 kg/m2 Ryley Jeter MD Work Phone: [facility] [place] 05-05-2025 19:39-0400 Body weight 66.2 kg Ryley Jeter MD Work Phone: [facility] 05-01-2025 11:06-0400 Body height 170.2 cm Maricruz BERMAN DNP Work Phone: [facility] 05-01-2025 11:06-0400 Body mass index (BMI) [Ratio] 22.12 kg/m2 Maricruz Albert JOIE BERMAN Work Phone: [facility] 05-01-2025 11:06-0400 Body weight 64.05 kg Maricruz Albert APRNMonserratJOIE HUDSON Work Phone: [facility] 05-01-2025 11:06-0400 Diastolic blood pressure 68 mm[Hg] Maricruz Juanito BERMAN DNP Work Phone: [facility] 05-01-2025 11:06-0400 Heart rate 47 /min Maricruz Juanito BERMAN DNP Work Phone: [facility] 05-01-2025 11:06-0400 Systolic blood pressure 142 mm[Hg] Maricruz Juanito BERMAN DNP Work Phone: [facility] 04-22-2025 13:43-0400 Body temperature 97.5 [degF] Ryley Jeter MD Work Phone: [facility] 04-22-2025 13:43-0400 Diastolic blood pressure 89 mm[Hg] Ryley Jeetr MD Work Phone: [facility] 04-22-2025 13:43-0400 Heart rate 112 /min Ryley Jeter MD Work Phone: [facility] 04-22-2025 13:43-0400 Inhaled oxygen flow rate 2 L/min Ryley Jeter MD Work Phone: [facility] [place] 04-22-2025 13:43-0400 Respiratory rate 18 /min Ryley Jeter MD Work Phone: [facility] 04-22-2025 13:43-0400 SaO2% (BldA) [Mass fraction] 100 % Ryley Jeter MD Work Phone: [facility] 04-22-2025 13:43-0400 Systolic blood pressure 138 mm[Hg] Ryley Jeter MD Work Phone: [facility] 04-22-2025 05:31-0400 Body mass index (BMI) [Ratio] 23.6 kg/m2 Ryley Jeter MD Work Phone: [facility] 04-22-2025 05:31-0400 Body weight 66.45 kg Ryley Jeter MD Work Phone: [facility] 04-19-2025 11:24-0400 Body height 167.64 cm Ryley Jeter MD Work Phone: [facility] 04-19-2025 09:21-0400 Inhaled oxygen concentration 45 % Ryley Jeter MD Work Phone: [facility] 04-19-2025 03:00-0400 Body temperature 97.7 [degF] Ryley Jeter MD Work Phone: [facility] 04-19-2025 03:00-0400 Diastolic blood pressure 54 mm[Hg] Ryley Jeter MD Work Phone: [facility] 04-19-2025 03:00-0400 Heart rate 97 /min Ryley Jeter MD Work Phone: [facility] 04-19-2025 03:00-0400 Inhaled oxygen flow rate 50 L/min Ryley Jeter MD Work Phone: [facility] 04-19-2025 03:00-0400 Respiratory rate 16 /min Ryley Jeter MD Work Phone: [facility] 04-19-2025 03:00-0400 SaO2% (BldA) [Mass fraction] 98 % Ryley Jeter MD Work Phone: [facility] 04-19-2025 03:00-0400 Systolic blood pressure 134 mm[Hg] Ryley Jeter MD Work Phone: [facility] 04-19-2025 00:50-0400 Inhaled oxygen concentration 50 % Ryley Jeter MD Work Phone: [facility] 04-19-2025 00:00-0400 Body height 170.18 cm Ryley Jeter MD Work Phone: [facility] 04-19-2025 00:00-0400 Body mass index (BMI) [Ratio] 24.4 kg/m2 Ryley Jeter MD Work Phone: [facility] 04-19-2025 00:00-0400 Body weight 70.76 kg Ryley Jeter MD Work Phone: [facility] 04-10-2025 15:10-0400 Diastolic blood pressure 78 mm[Hg] Ryley Jeter MD Work Phone: 0(771)087-963511 [address] 04-10-2025 15:10-0400 Heart rate 80 /min Ryley Jeter MD Work Phone: 7(646)413-695511 [address] 04-10-2025 15:10-0400 Systolic blood pressure 144 mm[Hg] Ryley Jeter MD Work Phone: 9(252)100-555755 [place] [address] 04-10-2025 15:00-0400 Body temperature 98.1 [degF] Ryley Jeter MD Work Phone: [facility] 04-10-2025 15:00-0400 SaO2% (BldA) [Mass fraction] 95 % Ryley Jeter MD Work Phone: [facility] 04-10-2025 13:39-0400 Respiratory rate 16 /min Ryley Jeter MD Work Phone: [facility] 04-10-2025 09:38-0400 Inhaled oxygen flow rate 2 L/min Ryley Jeter MD Work Phone: [facility] 04-10-2025 09:38-0400 SaO2% (BldA) [Mass fraction] 98 % Ryley Jeter MD Work Phone: [facility] 04-10-2025 08:45-0400 Body temperature 97.9 [degF] Ryley Jeter MD Work Phone: 1(214)936-119311 [address] 04-10-2025 03:42-0400 Body mass index (BMI) [Ratio] 22.3 kg/m2 Ryley Jeter MD Work Phone: [facility] 04-10-2025 03:42-0400 Body weight 64.7 kg Ryley Jeter MD Work Phone: [facility] 04-10-2025 00:32-0400 Inhaled oxygen concentration 30 % Ryley Jeter MD Work Phone: [facility] 04-09-2025 14:07-0400 Body height 170.18 cm Ryley Jeter MD Work Phone: [facility] 04-03-2025 05:40-0400 Heart rate 110 /min Ryley Jeter MD Work Phone: [facility] 04-03-2025 05:40-0400 Inhaled oxygen concentration 30 % Ryley Jeter MD Work Phone: 6(127)[phone] [place] [address] 04-03-2025 05:40-0400 Respiratory rate 21 /min Ryley Jeter MD Work Phone: [facility] 04-03-2025 05:40-0400 SaO2% (BldA) [Mass fraction] 98 % Ryley Jeter MD Work Phone: [facility] 04-03-2025 05:17-0400 Body height 170.18 cm Ryley Jeter MD Work Phone: [facility] 04-03-2025 05:17-0400 Body mass index (BMI) [Ratio] 21.2 kg/m2 Ryley Jeter MD Work Phone: [facility] 04-03-2025 05:17-0400 Body temperature 98 [degF] Ryley Jeter MD Work Phone: [facility] 04-03-2025 05:17-0400 Body weight 61.5 kg Ryley Jeter MD Work Phone: [facility] 04-03-2025 05:17-0400 Diastolic blood pressure 77 mm[Hg] Ryley Jeter MD Work Phone: [facility] 04-03-2025 05:17-0400 Systolic blood pressure 167 mm[Hg] Ryley Jeter MD Work Phone: [facility] 04-03-2025 03:00-0400 Inhaled oxygen flow rate 4 L/min Ryley Jeter MD Work Phone: [facility] 03-12-2025 13:50-0400 Body mass index (BMI) [Ratio] 21.9 kg/m2 Patyavinash Ortega [employer] Work Phone: [facility] 03-12-2025 13:50-0400 Body weight 63.41 kg Paty Ortega [employer] Work Phone: [facility] 03-12-2025 13:50-0400 Diastolic blood pressure 61 mm[Hg] Paty Ortega [employer] Work Phone: [facility] 03-12-2025 13:50-0400 Heart rate 69 /min Paty Ortega [employer] Work Phone: [facility] 03-12-2025 13:50-0400 Systolic blood pressure 166 mm[Hg] Patyavinash Ortega [employer] Work Phone: [facility] 03-09-2025 09:42-0400 Body height 170.2 cm Woo Small MD Work Phone: [facility] 03-09-2025 09:42-0400 Body mass index (BMI) [Ratio] 21.9 kg/m2 Woo Small MD Work Phone: [facility] 03-09-2025 09:42-0400 Body weight 63.41 kg Woo Small MD Work Phone: [facility] 03-09-2025 09:42-0400 Diastolic blood pressure 54 mm[Hg] Woo Small MD Work Phone: [facility] 03-09-2025 09:42-0400 Heart rate 73 /min Woo Small MD Work Phone: [facility] 03-09-2025 09:42-0400 SaO2% (BldA) [Mass fraction] 98 % Woo Small MD Work Phone: [facility] 03-09-2025 09:42-0400 Systolic blood pressure 172 mm[Hg] Woo Small MD Work Phone: [facility] 02-26-2025 13:01-0400 Body height 172.7 cm Ayanna Albert DO Work Phone: [facility] 02-26-2025 13:01-0400 Body mass index (BMI) [Ratio] 21.47 kg/m2 Ayanna Albert DO Work Phone: [facility] 02-26-2025 13:01-0400 Body weight 64.05 kg Ayanna Albert DO Work Phone: [facility] 02-26-2025 13:01-0400 Diastolic blood pressure 68 mm[Hg] Ayanna Albert DO Work Phone: [facility] 02-26-2025 13:01-0400 Heart rate 72 /min Ayanna Albert DO Work Phone: [facility] 02-26-2025 13:01-0400 Systolic blood pressure 158 mm[Hg] Ayanna Young DO Work Phone: [facility] 11-14-2024 10:44-0500 Diastolic blood pressure 61 mm[Hg] Woo Small MD Work Phone: [facility] 11-14-2024 10:44-0500 Heart rate 57 /min Woo Small MD Work Phone: [facility] 11-14-2024 10:44-0500 SaO2% (BldA) [Mass fraction] 96 % Woo Small MD Work Phone: [facility] 11-14-2024 10:44-0500 Systolic blood pressure 185 mm[Hg] Woo Small MD Work Phone: [facility] 11-14-2024 10:37-0500 Body height 170.2 cm Woo Small MD Work Phone: [facility] 11-14-2024 10:37-0500 Body mass index (BMI) [Ratio] 23.57 kg/m2 Woo Small MD Work Phone: [facility] 11-14-2024 10:37-0500 Body weight 68.27 kg Woo Small MD Work Phone: [facility] 11-13-2024 11:16-0500 Body mass index (BMI) [Ratio] 23.45 kg/m2 Paty Ortega [employer] Work Phone: [facility] 11-13-2024 11:16-0500 Body weight 67.9 kg Paty Ortega [employer] Work Phone: [facility] 11-13-2024 11:16-0500 Diastolic blood pressure 51 mm[Hg] Paty Ortega [employer] Work Phone: [facility] 11-13-2024 11:16-0500 Heart rate 71 /min Paty Ortega [employer] Work Phone: [facility] 11-13-2024 11:16-0500 Systolic blood pressure 107 mm[Hg] Paty Ortega [employer] Work Phone: [facility] 11-09-2024 10:42-0500 Diastolic blood pressure 64 mm[Hg] Kristy Parker MD Work Phone: [facility] 11-09-2024 10:42-0500 Heart rate 58 /min Kristy Parker MD Work Phone: [facility] 11-09-2024 10:42-0500 Systolic blood pressure 160 mm[Hg] Kristy Parker MD Work Phone: [facility] 11-09-2024 10:32-0500 Body height 170.2 cm Kristy Parker MD Work Phone: [facility] 11-09-2024 10:32-0500 Body mass index (BMI) [Ratio] 23.18 kg/m2 Kristy Parker MD Work Phone: [facility] 11-09-2024 10:32-0500 Body weight 67.13 kg Kristy Parker MD Work Phone: [facility] 11-07-2024 09:54-0500 Diastolic blood pressure 61 mm[Hg] Brock Groves MD Work Phone: [facility] 11-07-2024 09:54-0500 Systolic blood pressure 143 mm[Hg] Brock Groves MD Work Phone: [facility] 11-07-2024 09:51-0500 Body height 170.2 cm Brock Groves MD Work Phone: [facility] 11-07-2024 09:51-0500 Body mass index (BMI) [Ratio] 23.02 kg/m2 Brock Groves MD Work Phone: [facility] 11-07-2024 09:51-0500 Body temperature 97.39 [degF] Brock Groves MD Work Phone: [facility] 11-07-2024 09:51-0500 Body weight 66.68 kg Brock Groves MD Work Phone: [facility] 11-07-2024 09:51-0500 Heart rate 63 /min Brock Groves MD Work Phone: [facility] 11-07-2024 09:51-0500 SaO2% (BldA) [Mass fraction] 100 % Brock Groves MD Work Phone: [facility] 10-28-2024 11:06-0500 Diastolic blood pressure 51 mm[Hg] Nidia Garay MD Work Phone: [facility] 10-28-2024 11:06-0500 Heart rate 68 /min Nidia Garay MD Work Phone: [facility] 10-28-2024 11:06-0500 Respiratory rate 14 /min Nidia Garay MD Work Phone: [facility] 10-28-2024 11:06-0500 SaO2% (BldA) [Mass fraction] 94 % Nidia Garay MD Work Phone: [facility] 10-28-2024 11:06-0500 Systolic blood pressure 153 mm[Hg] Nidia Garay MD Work Phone: [facility] 10-28-2024 07:24-0500 Body temperature 97.59 [degF] Nidia Garay MD Work Phone: [facility] 10-28-2024 05:11-0500 Body mass index (BMI) [Ratio] 22.44 kg/m2 Nidia Garay MD Work Phone: [facility] 10-28-2024 05:11-0500 Body weight 65 kg Nidia Garay MD Work Phone: [facility] 10-27-2024 16:36-0500 Body height 170.2 cm Nidia Garay MD Work Phone: [facility] 10-27-2024 14:18-0500 SaO2% (BldA) [Mass fraction] 97.3 % Nidia Garay MD Work Phone: [facility] 10-18-2024 13:46-0500 Diastolic blood pressure 61 mm[Hg] Woo Small MD Work Phone: [facility] 10-18-2024 13:46-0500 Heart rate 67 /min Woo Small MD Work Phone: [facility] 10-18-2024 13:46-0500 SaO2% (BldA) [Mass fraction] 100 % Woo Small MD Work Phone: [facility] 10-18-2024 13:46-0500 Systolic blood pressure 103 mm[Hg] Woo Small MD Work Phone: [facility] 10-18-2024 13:27-0500 Body height 172.7 cm Woo Small MD Work Phone: [facility] 10-18-2024 13:27-0500 Body mass index (BMI) [Ratio] 22.52 kg/m2 Woo Small MD Work Phone: [facility] 10-18-2024 13:27-0500 Body weight 67.18 kg Woo Small MD Work Phone: [facility] 08-29-2024 13:04-0400 Diastolic blood pressure 72 mm[Hg] Ayanna Young DO Work Phone: [facility] 08-29-2024 13:04-0400 Systolic blood pressure 168 mm[Hg] Ayanna Young DO Work Phone: [facility] 08-29-2024 12:57-0400 Body height 172.7 cm Ayanna Young DO Work Phone: [facility] 08-29-2024 12:57-0400 Body mass index (BMI) [Ratio] 22.72 kg/m2 Ayanna Young DO Work Phone: [facility] 08-29-2024 12:57-0400 Body weight 67.77 kg Ayanna Young DO Work Phone: [facility] 08-29-2024 12:57-0400 Heart rate 64 /min Ayanna Young DO Work Phone: [facility] 07-21-2024 14:12-0400 Diastolic blood pressure 68 mm[Hg] Paty Ortega [employer] Work Phone: [facility] 07-21-2024 14:12-0400 Systolic blood pressure 166 mm[Hg] Paty Ortega [employer] Work Phone: [facility] 07-21-2024 13:38-0400 Body mass index (BMI) [Ratio] 22.44 kg/m2 Paty Ortega [employer] Work Phone: [facility] 07-21-2024 13:38-0400 Body weight 66.95 kg Paty Ortega [employer] Work Phone: [facility] 07-21-2024 13:38-0400 Heart rate 69 /min Paty Ortega [employer] Work Phone: [facility] 04-24-2024 10:09-0400 Diastolic blood pressure 70 mm[Hg] Woo Small MD Work Phone: [facility] Comment on above: Manual 04-24-2024 10:09-0400 Systolic blood pressure 150 mm[Hg] Woo Small MD Work Phone: [facility] Comment on above: Manual 04-24-2024 09:44-0400 Body height 172.7 cm Woomert Small MD Work Phone: [facility] 04-24-2024 09:44-0400 Body mass index (BMI) [Ratio] 22.43 kg/m2 Woo Day Work Phone: [facility] 04-24-2024 09:44-0400 Body weight 66.91 kg Woo Day Work Phone: [facility] 04-24-2024 09:44-0400 Heart rate 53 /min Woo Work Phone: [facility] 04-24-2024 09:44-0400 SaO2% (BldA) [Mass fraction] 96 % Woo Work Phone: [facility] 02-24-2024 13:44-0400 Body height 172.7 cm Maricruz BERMAN DNP Work Phone: [facility] 02-24-2024 13:44-0400 Body mass index (BMI) [Ratio] 23.11 kg/m2 Maricruz BERMAN DNP Work Phone: [facility] 02-24-2024 13:44-0400 Body weight 68.95 kg Maricruz BERMAN DNP Work Phone: [facility] 02-24-2024 13:44-0400 Diastolic blood pressure 68 mm[Hg] Maricruz BERMAN DNP Work Phone: [facility] 02-24-2024 13:44-0400 Heart rate 76 /min Maricruz BERMAN DNP Work Phone: [facility] 02-24-2024 13:44-0400 Systolic blood pressure 142 mm[Hg] Maricruz BERMAN DNP Work Phone: [facility] 02-18-2024 12:48-0400 Body mass index (BMI) [Ratio] 23.11 kg/m2 Paty Ortega CNP Work Phone: [facility] 02-18-2024 12:48-0400 Body weight 68.95 kg Paty Ortega CNP Work Phone: [facility] 02-18-2024 12:48-0400 Diastolic blood pressure 79 mm[Hg] Paty Ortega [employer] Work Phone: [facility] 02-18-2024 12:48-0400 Heart rate 67 /min Paty Ortega [employer] Work Phone: [facility] 02-18-2024 12:48-0400 Systolic blood pressure 131 mm[Hg] Paty Ortega [employer] Work Phone: [facility] 01-14-2024 11:02-0400 Body height 172.7 cm Aylin Lacy [employer] Work Phone: [facility] 01-14-2024 11:02-0400 Body mass index (BMI) [Ratio] 24.01 kg/m2 Aylin Lacy [employer] Work Phone: [facility] 01-14-2024 11:02-0400 Body weight 71.62 kg Aylin Lacy CNP Work Phone: [facility] 01-14-2024 11:02-0400 Diastolic blood pressure 78 mm[Hg] Aylin Lacy [employer] Work Phone: [facility] 01-14-2024 11:02-0400 Heart rate 70 /min Aylin Lacy [employer] Work Phone: [facility] 01-14-2024 11:02-0400 SaO2% (BldA) [Mass fraction] 94 % Aylin Regino [employer] Work Phone: [facility] 01-14-2024 11:02-0400 Systolic blood pressure 139 mm[Hg] Aylin Regino [employer] Work Phone: [facility] 12-01-2023 08:00-0500 Body temperature 97.9 [degF] Kathleen Story MD Work Phone: [facility] 12-01-2023 08:00-0500 Diastolic blood pressure 73 mm[Hg] Kathleen Story MD Work Phone: [facility] 12-01-2023 08:00-0500 Heart rate 91 /min Kathleen Story MD Work Phone: [facility] 12-01-2023 08:00-0500 Respiratory rate 18 /min Kathleen Story MD Work Phone: [facility] 12-01-2023 08:00-0500 SaO2% (BldA) [Mass fraction] 94 % Kathleen Story MD Work Phone: [facility] 12-01-2023 08:00-0500 Systolic blood pressure 134 mm[Hg] Kathleen Story MD Work Phone: [facility] 12-01-2023 06:00-0500 Body mass index (BMI) [Ratio] 23.96 kg/m2 Kathleen Story MD Work Phone: [facility] 12-01-2023 06:00-0500 Body weight 69.4 kg Kathleen Story MD Work Phone: [facility] 11-27-2023 04:06-0500 SaO2% (BldA) [Mass fraction] 96.0 % Kathleen Story MD Work Phone: [facility] 11-27-2023 03:00-0500 Body height 170.2 cm Kathleen Story MD Work Phone: [facility] 11-27-2023 01:39-0500 Diastolic blood pressure 79 mm[Hg] Ger Bansal DO Work Phone: [facility] 11-27-2023 01:39-0500 Heart rate 77 /min Ger Bansal DO Work Phone: [facility] 11-27-2023 01:39-0500 Respiratory rate 20 /min Ger Bansal DO Work Phone: [facility] 11-27-2023 01:39-0500 SaO2% (BldA) [Mass fraction] 95 % Ger Bansal DO Work Phone: [facility] 11-27-2023 01:39-0500 Systolic blood pressure 148 mm[Hg] Ger Bansal DO Work Phone: [facility] 11-26-2023 21:22-0500 Body height 172.7 cm Ger Bansal DO Work Phone: [facility] 11-26-2023 21:22-0500 Body mass index (BMI) [Ratio] 22.5 kg/m2 Ger Bansal DO Work Phone: [facility] 11-26-2023 21:22-0500 Body temperature 97.11 [degF] Ger Bansal DO Work Phone: [facility] 11-26-2023 21:22-0500 Body weight 67.13 kg Ger Bansal DO Work Phone: [facility] 10-21-2023 08:54-0500 Body height 172.7 cm Woo Small MD Work Phone: [facility] 10-21-2023 08:54-0500 Body mass index (BMI) [Ratio] 22.61 kg/m2 Woo Small MD Work Phone: [facility] 10-21-2023 08:54-0500 Body weight 67.45 kg Woo Small MD Work Phone: [facility] 10-21-2023 08:54-0500 Diastolic blood pressure 67 mm[Hg] Woo Small MD Work Phone: [facility] 10-21-2023 08:54-0500 Heart rate 65 /min Woo Small MD Work Phone: [facility] 10-21-2023 08:54-0500 SaO2% (BldA) [Mass fraction] 99 % Woo Small MD Work Phone: [facility] 10-21-2023 08:54-0500 Systolic blood pressure 128 mm[Hg] Woo Small MD Work Phone: [facility] 10-13-2023 11:55-0500 SaO2% (BldA) [Mass fraction] 92 % Praful Pineda MD Work Phone: [facility] 10-13-2023 10:39-0500 Heart rate 97 /min Praful Pineda MD Work Phone: [facility] 10-13-2023 09:35-0500 Body height 171.5 cm Praufl Pineda MD Work Phone: [facility] 10-13-2023 09:35-0500 Body mass index (BMI) [Ratio] 24.38 kg/m2 Praful Pineda MD Work Phone: [facility] 10-13-2023 09:35-0500 Body weight 71.7 kg Praful Pineda MD Work Phone: [facility] 10-12-2023 20:45-0500 Body temperature 98.1 [degF] Praful Pineda MD Work Phone: [facility] 10-12-2023 20:45-0500 Diastolic blood pressure 85 mm[Hg] Praful Pineda MD Work Phone: [facility] 10-12-2023 20:45-0500 Respiratory rate 16 /min Praful Pineda MD Work Phone: [facility] 10-12-2023 20:45-0500 Systolic blood pressure 123 mm[Hg] Praful Pineda MD Work Phone: [facility] 10-11-2023 01:56-0500 Body temperature 37.0 Praful Pineda MD Work Phone: [facility] 10-11-2023 01:56-0500 SaO2% (BldA) [Mass fraction] 93 % Praful Pineda MD Work Phone: [facility] 10-08-2023 11:12-0500 Diastolic blood pressure 66 mm[Hg] Mary Vargas MD Work Phone: [facility] 10-08-2023 11:12-0500 Heart rate 67 /min Mary Vargas MD Work Phone: [facility] 10-08-2023 11:12-0500 Systolic blood pressure 199 mm[Hg] Mary Vargas MD Work Phone: [facility] 10-08-2023 11:05-0500 Body mass index (BMI) [Ratio] 24.18 kg/m2 Mary Vargas MD Work Phone: [facility] 10-08-2023 11:05-0500 Body weight 72.12 kg Mary Vargas MD Work Phone: [facility] 08-25-2023 14:11-0400 Body weight 72.12 kg Ayanna Young DO Work Phone: [facility] 08-25-2023 14:11-0400 Diastolic blood pressure 62 mm[Hg] Ayanna Young DO Work Phone: [facility] 08-25-2023 14:11-0400 Heart rate 62 /min Ayanna Young DO Work Phone: [facility] 08-25-2023 14:11-0400 Systolic blood pressure 144 mm[Hg] Ayanna Young DO Work Phone: [facility] 07-27-2023 14:48-0400 Diastolic blood pressure 78 mm[Hg] Nancy Mirza Work Phone: [facility] Work Phone: 07-27-2023 14:48-0400 Systolic blood pressure 152 mm[Hg] Nancy Mirza Work Phone: [facility] Work Phone: 07-27-2023 14:45-0400 Body height 172.72 cm Nancy [facility] Work Phone: 07-27-2023 14:45-0400 Body mass index (BMI) [Ratio] 24.05 kg/m2 Nancy Isbell Koreyeleazar Work Phone[facility] Work Phone: 07-27-2023 14:45-0400 Body surface area Derived from formula 1.85 m2 Nancy Mirza Work Phone[facility] Work Phone: 07-27-2023 14:45-0400 Body weight 71.76 kg Nancy Mirza [facility] Work Phone: 07-27-2023 14:45-0400 Diastolic blood pressure 88 mm[Hg] Nancy Mirza [facility] Work Phone: 07-27-2023 14:45-0400 Heart rate 70 /min Nancy Mirza [facility] Work Phone: 07-27-2023 14:45-0400 SaO2% (BldA) [Mass fraction] 97 % Nancy Mirza [facility] Work Phone: 07-27-2023 14:45-0400 Systolic blood pressure 160 mm[Hg] Nancy Mirza [facility] Work Phone: 02-19-2023 13:02-0400 Body mass index (BMI) [Ratio] 24.33 kg/m2 Paty Ortega CNP Work Phone: [facility] 02-19-2023 13:02-0400 Body weight 72.58 kg Paty Ortega [employer] Work Phone: [facility] 02-19-2023 13:02-0400 Diastolic blood pressure 83 mm[Hg] Paty Ortega [employer] Work Phone: [facility] 02-19-2023 13:02-0400 Heart rate 73 /min Paty Ortega [employer] Work Phone: [facility] 02-19-2023 13:02-0400 Systolic blood pressure 116 mm[Hg] Paty Ortega [employer] Work Phone: [facility] 10-19-2022 10:01-0500 Diastolic blood pressure 69 mm[Hg] Paty Ortega [employer] Work Phone: [facility] 10-19-2022 10:01-0500 Heart rate 89 /min Paty Ortega [employer] Work Phone: [facility] 10-19-2022 10:01-0500 Systolic blood pressure 149 mm[Hg] Paty Ortega [employer] Work Phone: [facility] 10-19-2022 09:56-0500 Body mass index (BMI) [Ratio] 24.04 kg/m2 Paty Ortega [employer] Work Phone: [facility] 10-19-2022 09:56-0500 Body weight 71.71 kg Paty Ortega [employer] Work Phone: [facility] 06-19-2022 10:04-0400 Diastolic blood pressure 90 mm[Hg] Paty Ortega [employer] Work Phone: [facility] 06-19-2022 10:04-0400 Systolic blood pressure 184 mm[Hg] Paty Ortega [employer] Work Phone: [facility] 06-19-2022 09:40-0400 Heart rate 72 /min Paty Ortega [employer] Work Phone: [facility] 06-19-2022 09:36-0400 Body height 172.7 cm Paty Ortega [employer] Work Phone: [facility] 06-19-2022 09:36-0400 Body mass index (BMI) [Ratio] 24.48 kg/m2 Paty Ortega [employer] Work Phone: [facility] 06-19-2022 09:36-0400 Body weight 73.03 kg Paty Ortega [employer] Work Phone: [facility] 02-13-2022 11:13-0400 Diastolic blood pressure 74 mm[Hg] Mary Vargas MD Work Phone: [facility] 02-13-2022 11:13-0400 Systolic blood pressure 138 mm[Hg] Mary Vargas MD Work Phone: [facility] 02-13-2022 11:09-0400 Body height 172.7 cm Mary Vargas MD Work Phone: [facility] 02-13-2022 11:09-0400 Body mass index (BMI) [Ratio] 25.09 kg/m2 Mary Vargas MD Work Phone: [facility] 02-13-2022 11:09-0400 Body weight 74.84 kg Mary Vargas MD Work Phone: [facility] 02-13-2022 11:09-0400 Heart rate 71 /min Mary Vargas MD Work Phone: [facility] 10-13-2021 14:07-0500 Diastolic blood pressure 72 mm[Hg] Paty Ortega [employer] Work Phone: [facility] 10-13-2021 14:07-0500 Heart rate 74 /min Paty Ortega [employer] Work Phone: [facility] 10-13-2021 14:07-0500 Systolic blood pressure 163 mm[Hg] Paty Ortega [employer] Work Phone: [facility] 10-13-2021 13:59-0500 Body mass index (BMI) [Ratio] 24.89 kg/m2 Paty Ortega [employer] Work Phone: [facility] 10-13-2021 13:59-0500 Body weight 74.25 kg Paty Ortega [employer] Work Phone: [facility] 06-20-2021 14:38-0400 Diastolic blood pressure 68 mm[Hg] Paty Ortega [employer] Work Phone: [facility] 06-20-2021 14:38-0400 Heart rate 70 /min Paty Ortega [employer] Work Phone: [facility] 06-20-2021 14:38-0400 Systolic blood pressure 163 mm[Hg] Paty Ortega [employer] Work Phone: [facility] 06-20-2021 14:33-0400 Body height 172.7 cm Paty Ortega [employer] Work Phone: [facility] 06-20-2021 14:33-0400 Body mass index (BMI) [Ratio] 25.32 kg/m2 Paty Ortega [employer] Work Phone: [facility] 06-20-2021 14:33-0400 Body weight 75.52 kg Paty Ortega [employer] Work Phone: [facility] 02-18-2021 15:24-0400 Body height 172.7 cm Mary Vargas MD Work Phone: [facility] 02-18-2021 15:24-0400 Body mass index (BMI) [Ratio] 25.54 kg/m2 Mary Vargas MD Work Phone: [facility] 02-18-2021 15:24-0400 Body weight 76.2 kg Mary Vargas MD Work Phone: [facility] 02-18-2021 15:24-0400 Diastolic blood pressure 70 mm[Hg] Mary Vargas MD Work Phone: [facility] 02-18-2021 15:24-0400 Heart rate 76 /min Mary Vargas MD Work Phone: [facility] 02-18-2021 15:24-0400 Systolic blood pressure 194 mm[Hg] Mary Vargas MD Work Phone: [facility] 10-18-2020 13:36-0500 BMI (Body Mass Index) 25.54 kg/m2 Paty [facility] 10-18-2020 13:36-0500 Body weight 76.2 kg Paty [facility] 10-18-2020 13:36-0500 BP Diastolic 69 mm[Hg] [facility] 10-18-2020 13:36-0500 BP Systolic 163 mm[Hg] [facility] 10-18-2020 13:36-0500 Height 172.7 cm [facility] 10-18-2020 13:36-0500 Pulse (Heart Rate) 72 /min [facility] 06-18-2020 10:01-0400 BMI (Body Mass Index) 25.39 kg/m2 [facility] 06-18-2020 10:01-0400 Body weight 75.75 kg [facility] 06-18-2020 10:01-0400 BP Diastolic 71 mm[Hg] [facility] 06-18-2020 10:01-0400 BP Systolic 172 mm[Hg] [facility] 06-18-2020 10:01-0400 Height 172.7 cm [facility] 06-18-2020 10:01-0400 Pulse (Heart Rate) 72 /min [facility] 11-16-2019 10:40-0500 BMI (Body Mass Index) 25.09 kg/m2 [facility] 11-16-2019 10:40-0500 Body weight 74.84 kg [facility] 11-16-2019 10:40-0500 BP Diastolic 68 mm[Hg] [facility] 11-16-2019 10:40-0500 BP Systolic 178 mm[Hg] [facility] 11-16-2019 10:40-0500 Height 172.7 cm [facility] 11-16-2019 10:40-0500 Pulse (Heart Rate) 75 /min [facility] 07-17-2019 10:48-0400 BMI (Body Mass Index) 25.09 kg/m2 Keeley Patton [facility] 07-17-2019 10:48-0400 Body weight 74.84 kg Keeley Patton [facility] 07-17-2019 10:48-0400 BP Diastolic 69 mm[Hg] Keeley Patton [facility] 07-17-2019 10:48-0400 BP Systolic 152 mm[Hg] Keeley Patton [facility] 07-17-2019 10:48-0400 Height 172.7 cm Keeley Patton [facility] 07-17-2019 10:48-0400 Pulse (Heart Rate) 71 /min Keeley Patton [facility] 03-13-2019 12:07-0400 BMI (Body Mass Index) 25.24 kg/m2 Mary Vargas [facility] 03-13-2019 12:07-0400 Body weight 75.3 kg Mary Vargas [facility] 03-13-2019 12:07-0400 BP Diastolic 67 mm[Hg] Mary Vargas [facility] 03-13-2019 12:07-0400 BP Systolic 160 mm[Hg] Mary Vargas [facility] 03-13-2019 12:07-0400 Height 172.7 cm Mary Vargas [facility] 03-13-2019 12:07-0400 Pulse (Heart Rate) 72 /min Mary Vargas [facility] 11-11-2018 11:08-0500 BMI (Body Mass Index) 26 kg/m2 Keeley Patton [facility] 11-11-2018 11:08-0500 BP Diastolic 74 mm[Hg] Keeley Patton [facility] 11-11-2018 11:08-0500 BP Systolic 172 mm[Hg] Keeley Patton [facility] 11-11-2018 11:08-0500 Height 172.7 cm Keeley Patton [facility] 11-11-2018 11:08-0500 Pulse (Heart Rate) 71 /min Keeley Patton [facility] 11-11-2018 11:08-0500 Weight 77.56 kg Keeley Patton [facility] 07-05-2018 10:05-0400 BMI (Body Mass Index) 25.48 kg/m2 Paty Ortega [facility] 07-05-2018 10:05-0400 BP Diastolic 58 mm[Hg] Paty Ortega [facility] 07-05-2018 10:05-0400 BP Systolic 130 mm[Hg] Paty Ortega [facility] 07-05-2018 10:05-0400 Height 172.7 cm Paty Ortega [facility] 07-05-2018 10:05-0400 Pulse (Heart Rate) 84 /min Paty Ortega [facility] 07-05-2018 10:05-0400 Weight 76.02 kg Paty Ortega [facility] 02-28-2018 10:14-0400 BMI (Body Mass Index) 26.15 kg/m2 [facility] 02-28-2018 10:14-0400 BP Diastolic 64 mm[Hg] [facility] 02-28-2018 10:14-0400 BP Systolic 154 mm[Hg] [facility] 02-28-2018 10:14-0400 Height 172.7 cm [facility] 02-28-2018 10:14-0400 Pulse (Heart Rate) 76 /min [facility] 02-28-2018 10:14-0400 Weight 78.02 kg [facility] 10-29-2017 10:08-0500 BMI (Body Mass Index) 25.24 kg/m2 Mary Vargas [facility] Work Phone: 10-29-2017 10:08-0500 BP Diastolic 64 mm[Hg] Mary Vargas [facility] Work Phone: 10-29-2017 10:08-0500 BP Systolic 142 mm[Hg] Mary Vargas [facility] Work Phone: 10-29-2017 10:08-0500 Height 172.7 cm Mary Vargas [facility] Work Phone: 10-29-2017 10:08-0500 Pulse (Heart Rate) 72 /min Mary Vargas [facility] Work Phone: 10-29-2017 10:08-0500 Weight 75.3 kg Mary Vargas [facility] Work Phone: 06-17-2017 11:04-0400 BMI (Body Mass Index) 24.78 kg/m2 Ya Parker [facility] Work Phone: 06-17-2017 11:04-0400 BP Diastolic 62 mm[Hg] Ya Parker [facility] Work Phone: 06-17-2017 11:04-0400 BP Systolic 148 mm[Hg] Ya Parker [facility] Work Phone: 06-17-2017 11:04-0400 Height 172.7 cm Ya Parker [facility] Work Phone: 06-17-2017 11:04-0400 Pulse (Heart Rate) 64 /min Ya Parker [facility] Work Phone: 06-17-2017 11:04-0400 Weight 73.94 kg Ya Parker [facility] Work Phone: Encounters Encounter Date Encounter [...] Care Unit Start: 05-05-2025 End: 05-09-2025 Dr. 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 Breezy chavez MD [facility] Start: 04-22-2025 Dr. Malika Fonseca [facility] Work Phone: Start: 04-21-2025 Dr. Breezy chavez MD [facility] Start: 04-21-2025 Dr. Malika Fonseca [facility] Work Phone: Start: 04-20-2025 Dr. Breezy chavez MD [facility] Start: 04-20-2025 Dr. Ger lora [facility] In[facility] Work Phone: Start: 04-19-2025 ambulatory Ryley Steffany Facility:[facility] Start: 04-19-2025 End: 04-22-2025 Evaluation and management of inpatient Ryley Jeter MD Work Phone: [facility] Work Phone: Start: 04-19-2025 End: 04-22-2025 Dr. Nancy Rizzo DO -Intensive Care Unit Work Phone: Start: 04-16-2025 End: 04-17-2025 Refill Ej Guidry MA [facility] Comment on above: Medication Refill Type 1 diabetes suzie itus with diabetic neuropathy (HCC) Start: 04-12-2025 ambulatory RYLEY JETER [facility] Ambulatory Start: 04-10-2025 Dr. Grace sepulveda MD [facility] [facility] Work Phone: Start: 04-09-2025 Non-patient / Non-visit Dr. Kesha Arnold MD [facility] [facility] Work Phone: Start: 04-09-2025 Dr. Grace sepulveda MD [facility] [facility] Work Phone: Start: 04-08-2025 Non-patient / Non-visit Dr. Cassandra Moore MD -[place] [facility] Work Phone: Start: 04-08-2025 Dr. Jose Moore MD [facility] Inpatient Physicians Work Phone: Start: 04-07-2025 Non-patient / Non-visit Dr. Cassandra Moore [facility] Inpatient Physicians Work Phone: Start: 04-07-2025 Dr. Jose Moore MD [facility] Work Phone: Start: 04-06-2025 Non-patient / Non-visit Dr. Cassandra Moore [facility] In[facility] Work Phone: Start: 04-06-2025 Dr. Jose Moore MD [facility] Work Phone: Start: 04-06-2025 Non-patient / Non-visit Dr. Rosetta URIBE [facility] Start: 04-06-2025 Dr. Smooth almanza MD [facility] Start: 04-06-2025 Non-patient / Non-visit Dr. Landry August own -[facility] Start: 04-06-2025 Dr. Landry Fagan [facility] Start: 04-05-2025 Non-patient / Non-visit Dr. Rosetta URIBE [facility] Start: 04-05-2025 Dr. Smooth almanza MD [facility] Start: 04-05-2025 Non-patient / Non-visit Dr. Kesha Martin MD [facility] Start: 04-05-2025 Dr. Barbie Martin MD [facility] Start: 04-05-2025 Non-patient / Non-visit Dr. Kesha Arnold MD [facility] In[facility] Work Phone: Start: 04-05-2025 Dr. Grace sepulveda MD [facility] Work Phone: Start: 04-05-2025 Non-patient / Non-visit Dr. Landry August own [facility] Start: 04-05-2025 Dr. Landry Fagan DO [facility] Start: 04-04-2025 Non-patient / Non-visit Dr. Kesha Arnold MD -[place] [facility] Work Phone: Start: 04-04-2025 Dr. Grace sepulveda MD -[place] [facility] Work Phone: Start: 04-03-2025 ambulatory [facility] Facility:[facility] Start: 04-03-2025 Non-patient / Non-visit Dr. Koffi langley MD -[facility] Start: 04-03-2025 Dr. Koffi Gibbs MD -[facility] Start: 04-03-2025 ambulatory [facility] Facility:[facility] Start: 04-03-2025 End: 04-10-2025 Evaluation and management of inpatient Dr. Dyana Hwang MD -Intensive Care Unit Work Phone: Start: 04-03-2025 End: 04-10-2025 Dr. Grace Arnold MD -Progressive Care Unit Work Phone: Start: 03-29-2025 End: 03-29-2025 ambulatory WOO SMALL [facility] Start: 03-27-2025 End: 03-27-2025 Follow-up encounter Woo Small MD Work Phone: [facility] Comment on above: Basic metabolic pane l Start: 03-12-2025 End: 03-12-2025 Office outpatient visit 25 minutes Paty Ortega [facility] Work Phone: [facility] [place] Comment on above: Type 1 diabetes suzie itus with diabetic neuropathy (HCC) (Primary Dx); Pure hypercholesterolemia; Essential hypertension Start: 03-12-2025 End: 03-12-2025 ambulatory PATY ORTEGA [facility] Ambulatory Start: 03-09-2025 End: 03-09-2025 Office outpatient visit 25 minutes Woo Small MD Work Phone: [facility] Comment on above: 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 (Primary Dx); NSTEMI (non-ST elevated myocardial infarction) (HCC); Hospital discharge follow-up Start: 03-09-2025 End: 03-09-2025 ambulatory RYLEY JETER [facility] Ambulatory Start: 02-28-2025 End: 03-05-2025 Evaluation and management of inpatient [facility] Start: 02-26-2025 End: 02-26-2025 Office outpatient visit 15 minutes Ayanna Albert DO Work Phone: [facility] Medical Office Building Comment on above: 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); Essential hypertension; Pure hypercholesterolemia; Type 1 diabetes mellitus with diabetic neuropathy Start: 02-26-2025 End: 02-26-2025 ambulatory AYANNA ALBERT [facility] Ambulatory Start: 02-16-2025 End: 02-16-2025 Refill Paty Ortega CNP Work Phone: [facility] Endocrinology Physicians Comment on above: Type 1 diabetes suzie itus with diabetic neuropathy (HCC) (Primary Dx) Start: 02-14-2025 End: 02-14-2025 Documentation procedure Ej Guidry MA [facility] t [facility] Phys[facility] Comment on above: Letter refaxed Start: 02-12-2025 End: 02-13-2025 Orders Only Paty Ortega CNP Work Phone: [facility] Phys[facility] Start: 02-09-2025 Encounter for other preprocedural examination Kerwin Tamayo [facility] Start: 02-06-2025 End: 02-06-2025 ambulatory Ryley Jeter MD Work Phone: [facility] Work Phone: Start: 02-06-2025 End: 02-06-[address] Kerwin Tamayo MD -Laboratory, [facility] Start: 02-06-2025 End: 02-06-2025 Dr. Krewin Tamayo MD -Laboratory [facility] Start: 02-06-2025 End: 02-06-2025 ambulatory Ryley Jeter Facility:[facility] Start: 01-01-2025 End: 01-01-2025 Refill Paty Ortega [employer] Work Phone: [facility] Endocr[facility] Phys[facility] Comment on above: Type 1 diabetes suzie itus with diabetic neuropathy (HCC) (Primary Dx) Start: 12-08-2024 End: 12-08-2024 Refill Paty Ortega [employer] Work Phone: [facility]ocr[facility] Phys[facility] Comment on above: Type 1 diabetes suzie itus with diabetic neuropathy (HCC) Start: 11-20-2024 End: 11-20-2024 Refill Paty Ortega [employer] Work Phone: [facility] Phys[facility] Start: 11-14-2024 End: 11-14-2024 Office outpatient visit 25 minutes Woo Small MD Work Phone: [facility] Comment on above: 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 (Primary Dx); Claudication in peripheral vascular disease; Bilateral carotid artery stenosis Start: 11-14-2024 End: 11-14-2024 ambulatory RYLEY KEY [employer] [facility] Ambulatory Start: 11-13-2024 End: 11-13-2024 Office outpatient visit 25 minutes Paty Ortega [employer] Work Phone: [facility] [place] Comment on above: Type 1 diabetes suzie itus with diabetic neuropathy (HCC) (Primary Dx); Pure hypercholesterolemia; Essential hypertension Start: 11-13-2024 End: 11-13-2024 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 (Primary Dx) Start: 11-07-2024 End: 11-11-2024 Orders Only Sandi Phan PA-C Work Phone: [facility] Comment on above: Bilateral carotid ar radha stenosis (Primary Dx) Start: 11-06-2024 End: 11-07-2024 Refill Paty Ortega CNP Work Phone: [facility] Endocr[facility] Physicians Comment on above: Type 1 diabetes suzie itus with diabetic neuropathy (HCC) (Primary Dx) Start: 10-27-2024 End: 10-28-2024 ambulatory [facility] Start: 10-27-2024 End: 10-28-2024 Emergency department patient visit Elías Rodriguez MD Work Phone: [facility] Intermediate Care Unit Start: 10-23-2024 End: 10-23-2024 Chart abstracting Ej Guidry MA [facility] Comment on above: Medication Refill Start: 10-18-2024 End: 10-18-2024 Office outpatient visit 25 minutes Woo Small MD Work Phone: [facility] Comment on above: Claudication in sheyla pheral vascular disease (HCC) (Primary Dx); Encounter for examination of blood pressure with abnormal findings; 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; Congestive heart failure, unspecified HF chronicity, unspecified heart failure type (HCC); Hypertensive emergency Start: 10-18-2024 End: 10-18-2024 Patient encounter status Woo Small MD Work Phone: [facility] Start: 10-18-2024 End: 10-18-2024 ambulatory WOO SMALL [facility] Ambulatory Start: 10-18-2024 End: 10-18-2024 Encounter for examination of blood pressure with abnormal findings WOO SMALL [facility] Start: 10-06-2024 End: 10-06-2024 Refill Luisa Easley RN [facility] Start: 10-04-2024 ambulatory EJ GUIDRY [facility] Ambulatory Start: 09-28-2024 ambulatory [facility] Start: 09-26-2024 End: 09-26-2024 Refill Paty Ortega CNP Work Phone: [facility] Endocr[facility] Physicians Comment on above: Type 1 diabetes uszie itus with diabetic neuropathy (HCC) (Primary Dx) Start: 09-21-2024 End: 09-21-2024 ambulatory Chalcam Steffany Facility:[facility] Start: 09-13-2024 ambulatory Chalcam Steffany Facility:[facility] Start: 09-12-2024 ambulatory Chalcam Steffany [facility] Start: 09-12-2024 End: 09-14-2024 Evaluation and management of inpatient Ryley Steffany Facility:[facility] Start: 09-12-2024 ambulatory Ryley [facility] Facility:[facility] Start: 08-29-2024 End: 08-29-2024 Office outpatient visit 15 minutes Ayanna Albert DO Work Phone: [facility] Medical Office Building Comment on above: 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); Essential hypertension; Type 1 diabetes mellitus with diabetic neuropathy Start: 08-29-2024 End: 08-29-2024 ambulatory [facility] Ambulatory Start: 07-21-2024 End: 07-21-2024 Office outpatient visit 25 minutes Paty Ortega CNP Work Phone: [facility] [place] Comment on above: Type 1 diabetes suzie itus with diabetic neuropathy (HCC) (Primary Dx); Pure hypercholesterolemia; Essential hypertension Start: 07-21-2024 End: 07-21-2024 ambulatory RYLEY JETER [facility] Ambulatory Start: 07-07-2024 End: 07-07-2024 ambulatory NO ASSIGNED PCP GENERIC PROVIDER [facility] Start: 05-17-2024 End: 05-17-[facility]24 [facility] Facility:[facility] Start: 04-24-2024 End: 04-24-2024 Office outpatient visit 25 minutes Woo Small MD Work Phone: [facility] Comment on above: 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 (Primary Dx); Primary hypertension; Dyslipidemia Start: 03-28-2024 Refill Ej Guidry MA [facility] V[facility] Physicians Comment on above: Medication Refill Start: 03-06-2024 Refill Paty Ortega CNP Work Phone: [facility] Phys[facility] Endocr[facility]ology [place] Comment on above: Type 1 diabetes suzie itus with diabetic neuropathy (HCC) Start: 02-24-2024 End: 02-24-2024 Office outpatient visit 15 minutes Maricruz [facility] Work Phone: [facility] Office Building Comment on above: 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); Acute on chronic systolic (congestive) heart failure (Multi); Type 1 diabetes mellitus with diabetic neuropathy (Multi) Start: 02-18-2024 End: 02-18-2024 Office outpatient visit 25 minutes Paty Ortega CNP Work Phone: [facility] Phys[facility] Endocrinology [place] Comment on above: Type 1 diabetes suzie itus with diabetic neuropathy (HCC) (Primary Dx); Pure hypercholesterolemia; Essential hypertension Start: 02-07-2024 End: 02-07-2024 ambulatory NO ASSIGNED PCP GENERIC PROVIDER [facility] Start: 01-17-2024 Refill Ej Guidry MA [facility] V[facility] Physicians Comment on above: Medication Refill Start: 01-14-2024 End: 01-14-2024 Office outpatient visit 15 minutes Aylin Lacy [employer] Work Phone: [facility] Comment on above: Cardiovascular stres s test abnormal (Primary Dx); Dyslipidemia; 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; Primary hypertension Start: 12-29-2023 Refill Ej Guidry MA [facility] Phys[facility] Comment on above: Medication Refill Start: 12-15-2023 End: 12-15-2023 ambulatory [facility] Work Phone: Start: 12-15-2023 End: 12-15-2023 Patient encounter procedure [facility] [place] Work Phone: Start: 11-29-2023 End: 11-29-2023 Subsequent hospital visit by physician Jovan Paul [facility] Comment on above: Arrived Start: 11-27-2023 End: 12-01-2023 Evaluation and management of inpatient [facility] Work Phone: [facility] Start: 11-26-2023 End: 11-27-2023 Emergency department patient visit Ger Bansal Work Phone: [facility] Emergency Medicine Comment on above: NSTEMI (non-ST eleva chinyere myocardial infarction) (CMS/HCC) (Primary Dx); MADONNA (acute kidney injury) (CMS/[facility]); Acute combined systolic and diastolic congestive heart failure (CMS/[facility]); Type 1 diabetes mellitus with other specified complication ([facility]) Start: 11-25-2023 End: 11-25-2023 [facility] Work Phone: Start: 11-25-2023 End: 11-25-2023 Patient encounter [facility] Work Phone: Start: 11-17-2023 End: 11-17-2023 [facility] Work Phone: Start: 11-17-2023 End: 11-17-2023 Patient encounter procedure [facility] Work Phone: Start: 11-02-2023 Orders Only Mary Ramirez MD Work Phone: [facility] Endocrinology Physicians Start: 10-22-2023 End: 10-22-2023 Patient encounter procedure [facility] Start: 10-21-2023 End: 10-21-2023 Office outpatient new 45 minutes Mary Vargas MD Work Phone: [facility] Comment on above: 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 (Primary Dx); Dyslipidemia; Congestive heart failure, unspecified HF chronicity, unspecified heart failure type (HCC) Start: 10-11-2023 End: 10-11-2023 Subsequent hospital visit by physician Jovan Paul [facility] Start: 12-11-2023 Critical care ill/in jured patient init 30-74 min Aury Rouse DO Work Phone: [facility] Work Phone: Start: 10-11-2023 End: 10-13-2023 Evaluation and management of inpatient Praful Pineda MD Work Phone: [facility] Surgical Intensive Care Comment on [...] 25 minutes Mary Vargas MD Work Phone: [facility] Physicians [facility] Endocrinology [place] Comment on above: 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 Ayanna Albert Facility:[id number] Start: 07-30-2023 Refill Paty Ortega CNP Work Phone: [facility] [place] Start: 07-29-2023 Patient encounter procedure Da jovani Mirza Work Phone: [facility] Work Phone: Start: 07-27-[address] Ayanna Albert Facility:[id number] Start: 02-19-2023 End: 02-19-2023 Office outpatient visit 25 minutes Paty Ortega CNP Work Phone: [facility] [place] Comment on above: Type 1 diabetes suzie itus with diabetic neuropathy (HCC) Start: 01-25-2023 Patient encounter procedure Da jovani Mirza Work Phone: [facility] Work Phone: Start: 01-25-[address] Nancy Mirza Facility:[id number] Start: 01-18-2023 Patient encounter procedure Da jovani Mirza Work Phone: [facility] Work Phone: Start: 01-18-[address] Nancy Mirza Facility:[id number] Start: 01-15-2023 Patient encounter procedure Da jovani Mirza Work Phone: [facility] Work Phone: Start: 01-15-2023 [id number], Provider : Chaya Chan, Status: Pen, Time: 10:00 AM Nancy Mirza Work Phone: [facility] Work Phone: Start: 01-15-[address] Nnacy Mirza Facility:[id number] Start: 01-13-2023 Patient encounter procedure Juwan Mirza Work Phone: [facility] Work Phone: Start: 01-13-[address] Nancy Mirza Facility:[id number] Start: 01-08-2023 [email or web address], Provider : Chaya Chan, Status: Pen, Time: 10:00 AM Nancy Mirza Work Phone: [facility] Work Phone: Start: 01-08-[address] Nancy Mirza Facility:[id number] Start: 01-06-[address] Nancy Mirza Facility:[id number] Start: 01-06-2023 Patient encounter procedure Da jovani Mirza Work Phone: [facility] Work Phone: Start: 01-01-[address] Nancy Mirza Facility:[id number] Start: 01-01-2023 Patient encounter procedure Da jovani Mirza Work Phone: [facility] Work Phone: Start: 12-31-2022 Refill Paty Ortega [employer] Work Phone: [facility] Endocrinology Physicians Comment on above: Type 1 diabetes suzie itus with diabetic neuropathy (HCC) (Primary Dx) Start: 12-30-[address] Nancy Mirza Facility:[id number] Start: 12-25-[address] Nancy Mirza Facility:[id number] Start: 12-25-2022 Patient encounter procedure Da jovani Mirza Work Phone: [facility] Work Phone: Start: 12-21-2022 Patient encounter procedure Da jovani Mirza Work Phone: [facility] [place] Work Phone: Start: 12-21-[address] Nancy Mirza Facility:[id number] Start: 10-19-2022 End: 10-19-2022 Office outpatient visit 25 minutes Paty Ortega [employer] Work Phone: [facility] Phys[facility] Endocrinology [place] Comment on above: Type 1 diabetes suzie itus with diabetic neuropathy (HCC) (Primary Dx); Essential hypertension; Pure hypercholesterolemia; Bilateral carotid artery stenosis; Prostate cancer screening Start: 06-19-2022 End: 06-19-2022 Office outpatient visit 25 minutes Paty Ortega [employer] Work Phone: [facility] End[facility] [place] Comment on above: Type 1 diabetes suzie itus with diabetic neuropathy (HCC) (Primary Dx); Essential hypertension; Elevated PSA Start: 02-13-2022 End: 02-13-2022 Office outpatient visit 25 minutes Mary Vargas MD Work Phone: [facility] End[facility] [place] Comment on above: Type 1 diabetes suzie itus with diabetic neuropathy (HCC) (Primary Dx); 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); Essential hypertension; Bilateral carotid artery stenosis; Prostate cancer screening Start: 10-13-2021 End: 10-13-2021 Office outpatient visit 25 minutes Paty Ortega CNP Work Phone: [facility] Comment on above: Type 1 diabetes suzie itus with diabetic neuropathy (HCC) (Primary Dx); Essential hypertension; Pure hypercholesterolemia Start: 10-08-2021 Refill Paty Ortega CNP Work Phone: [facility] Start: 06-20-2021 End: 06-20-2021 Office outpatient visit 25 minutes Paty Ortega CNP Work Phone: [facility] Comment on above: Type 1 diabetes suzie itus with diabetic polyneuropathy (HCC) (Primary Dx); Essential hypertension; Pure hypercholesterolemia Start: 02-26-2021 End: 02-26-2021 Subsequent hospital visit by physician Mary Vargas MD Work Phone: [facility] Comment on above: Arrived Start: 02-18-2021 End: 02-18-2021 Office outpatient visit 25 minutes Mary Vargas MD Work Phone: [facility] Comment on above: Type 1 diabetes suzie itus with diabetic polyneuropathy (HCC) (Primary Dx); Bilateral carotid artery stenosis; Essential hypertension; Type 1 diabetes mellitus with diabetic neuropathy (HCC) Start: 02-18-2021 End: 02-18-2021 Refill Mary Vargas MD Work Phone: [facility] Start: 11-22-2020 End: 11-22-2020 Orders Only Ya Nicolas Work Phone: [facility] Start: 10-18-2020 End: 10-18-2020 Office outpatient visit 25 minutes Paty Terry Ortega Work Phone: [facility] Comment on above: Type 1 diabetes suzie itus with diabetic polyneuropathy (HCC) (Primary Dx); Type 1 diabetes mellitus with diabetic neuropathy (HCC); Essential hypertension; Pure hypercholesterolemia Start: 06-18-2020 End: 06-18-2020 Office outpatient visit 25 minutes Paty Terry [id number] Work Phone: [facility] Comment on above: Type 1 diabetes suzie itus with diabetic polyneuropathy (HCC) (Primary Dx); Type 1 diabetes mellitus with diabetic neuropathy (HCC); Essential hypertension; Pure hypercholesterolemia Start: 11-16-2019 End: 11-16-2019 Office outpatient visit 25 minutes Paty Terry [employer] Work Phone: [facility] Comment on above: Type I diabetes suzie itus with neurological manifestations, uncontrolled (HCC) (Primary Dx); Type 1 diabetes mellitus with diabetic polyneuropathy (HCC); Pure hypercholesterolemia Start: 07-17-2019 End: 07-17-2019 Office outpatient visit 25 minutes Keeley Patton Work Phone: [facility] Comment on above: Type 1 diabetes suzie itus with diabetic polyneuropathy (HCC) (Primary Dx); Essential hypertension; Pure hypercholesterolemia Start: 03-13-2019 End: 03-13-2019 Office outpatient visit 25 minutes Mary Vargas Work Phone: [facility] Comment on above: 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) (Primary Dx); Pure hypercholesterolemia; Essential hypertension; Type 1 diabetes mellitus with diabetic neuropathy (HCC); Prostate cancer screening Start: 11-11-2018 End: 11-11-2018 Office outpatient visit 15 minutes Keeley Patton Work Phone: [facility] Comment on above: Type 1 diabetes suzie itus with diabetic neuropathy (HCC) (Primary Dx); Essential hypertension Start: 07-05-2018 End: 07-05-2018 Office outpatient visit 25 minutes Paty OumarEdgar Work Phone: [facility] Comment on above: Type 1 diabetes suzie itus with diabetic neuropathy (HCC) (Primary Dx); Essential hypertension; Pure hypercholesterolemia Start: 02-28-2018 End: 02-28-2018 Office/outpatient visit, est, level 3 Alexandra Givens Work Phone: [facility] Start: 02-09-2018 Ambulatory Nancy Mirza Facilit y:[facility] Start: 02-09-2018 End: 02-09-2018 Ambulatory Nancy Mirza Work Phone: [facility] Start: 10-29-2017 Office/outpatient vi sit, est, level 4 Mary Vargas Work Phone: [facility] Start: 06-17-2017 End: 06-17-2017 Office outpatient visit 25 minutes Ya Buckariela Seaywin Work Phone: [facility] Comment on above: Type [...] Phone: Start: 05-06-2025 Assay of lactate Ryley Jeter MD Work Phone: Start: 05-05-2025 Urine microscopy: [...] Carbon dioxide measu rement, partial pressure Ryley eJter MD Work Phone: Start: 04-19-2025 Gases blood o2 satur ation only direct nikkie Ryley Jeter MD Work Phone: Start: 04-19-2025 Measurement of parti al pressure of oxygen in blood Ryley Jeter MD Work Phone: Start: 04-19-2025 Serum inorganic phos phate measurement Ryley Jeter MD Work Phone: Start: 04-19-2025 Carbon dioxide measu rement, partial pressure Ryley Jeetr MD Work Phone: Start: 04-19-2025 Gases blood [...] Nucleated red blood cell count procedure Ryley Jeetr MD Work Phone: Start: 04-10-2025 Platelet mean [...] colitis,primary sclerosing cholangitis and autoimmune hepatitis.Performed at: [place] [id number] Director: Todd Anderson PhD, Phone: [phone] Start: 04-06-2025 Serum inorganic phos phate measurement [...] or Pulmonary Embolism (PE)CRITICAL VALUE CALLED TO [id number] Victor Hugo Santamaria.RESULTS READ BACK BY SAME. Start: 04-03-2025 Estimated creatinine clearance Ryley Jeter MD Work Phone: Start: 02-28-2025 Thyrotropin [Units/v olume] in Serum or Plasma Maricruz Albert APRN-FILLER SPREADER, [facility] Work Phone: Start: 02-12-2025 Comprehensive metabolic panel Paty Ortega [facility] Work Phone: Start: 02-12-2025 Lipid panel Paty Ortega [facility] Work Phone: Start: 02-12-2025 Lipid 1996 [...] 12-01-2023 End: 12-01-2023 Glucose measurement Generic [facility] Work Phone: Start: 12-01-2023 Basic metabolic pane l calcium total Normajoanna Marin Seymour [employer] Work Phone: Start: 11-30-2023 Glucose measurement Gen malika [facility] Work Phone: Start: 11-30-2023 [facility] Work Phone: Start: 11-30-2023 Echo tthrc r-t 2d w/ wom-mode compl spec&colr d Norma Geiger [employer] Work Phone: Start: 11-30-2023 Basic metabolic pane l calcium total Norma Marin Seymour [employer] Work Phone: Start: 11-29-2023 Ct thorax w/o contra st material Alfred P Ezike [employer] Work Phone: Start: 11-29-2023 Thromboplastin time partial plasma/whole blood Mary Vargas MD Work Phone: Start: 11-29-2023 Glucose measurement Gen [facility] Work Phone: Start: 11-29-2023 Ecg routine ecg w/le ast 12 lds trcg only w/o i&r Ger W Bansal DO Work Phone: Start: 11-29-2023 Glucose measurement Gen [facility] Work Phone: Start: 11-29-2023 Thromboplastin time partial plasma/whole blood Mary Vargas MD Work Phone: Start: 11-29-2023 Basic metabolic pane l calcium total Norma Tania [place] [employer] Work Phone: Start: 11-28-2023 Glucose measurement Gen [facility] Work Phone: Start: 11-28-2023 Glucose measurement Gen [facility] Work Phone: Start: 11-28-2023 Glucose measurement Gen [facility] Work Phone: Start: 11-28-2023 Glucose measurement Gen [facility] Work Phone: Start: 11-28-2023 Basic metabolic pane l calcium total Norma Tania Juanjo [employer] Work Phone: Start: 11-28-2023 Glucose measurement Gen [facility] Work Phone: Start: 11-28-2023 Basic metabolic pane l calcium total Norma Tania Juanjo [employer] Work Phone: Start: 11-27-2023 End: 11-27-2023 Basic metabolic panel calcium total Norma Tania [place] [employer] Work Phone: Start: 11-27-2023 C-reactive protein Mehdi Pabon MD Work Phone: Start: 11-27-2023 Glucose measurement Gen [facility] Work Phone: Start: 11-27-2023 Glucose measurement Gen malika [facility] Work Phone: Start: 11-27-2023 Glucose measurement Gen malika [facility] Work Phone: Start: 11-27-2023 Basic metabolic pane l calcium total Norma Tania [place] [employer] Work Phone: Start: 11-27-2023 Glucose measurement Gen malika [facility] Work Phone: Start: 11-27-2023 Iaad ia clostridium difficile toxin Norma Tania Juanjo [employer] Work Phone: Start: 11-27-2023 Hemoglobin glycosylated a1c Mary Vargas MD Work Phone: Start: 11-27-2023 Glucose measurement Gen malika [facility] Work Phone: Start: 11-27-2023 Basic metabolic pane l calcium total Norma Tania Juanjo [employer] Work Phone: Start: 11-27-2023 Glucose measurement Gen malika [facility] Work Phone: Start: 11-27-2023 Glucose measurement Gen malika [facility] Work Phone: Start: 11-27-2023 End: 11-27-2023 Glucose measurement Generic [facility] Work Phone: Start: 11-27-2023 Basic metabolic pane l calcium total Norma Tania Juanjo [employer] Work Phone: Start: 11-27-2023 Glucose measurement Gen malika [facility] Work Phone: Start: 11-27-2023 Glucose measurement Gen malika [facility] Work Phone: Start: 11-27-2023 Glucose measurement Gen malika [facility] Work Phone: Start: 11-27-2023 Basic metabolic pane l calcium total Norma Tania Juanjo [employer] Work Phone: Start: 11-27-2023 Influenza virus A an d B RNA and SARS-CoV-2 (COVID-19) N gene panel - Respiratory specimen by ALICE with probe detection Norma Geiger CNP Work Phone: Start: 11-27-2023 Polymerase chain ty ction analysis Norma Geiger CNP Work Phone: Start: 11-27-2023 End: 11-27-2023 Glucose measurement Generic [facility] Work Phone: Start: 11-27-2023 Assay of troponin quantitative Norma Geiger CNP Work Phone: Start: 11-27-2023 Gases blood ph direc t nikkie xcpt pulse oximitry Generic [facility] Work Phone: Start: 11-27-2023 End: 11-27-2023 Glucose measurement Generic [facility] Work Phone: Start: 11-27-2023 Radiologic exam ches t single view Norma Geiger CNP Work Phone: Start: 11-27-2023 End: 11-27-2023 Gases blood ph direct nikkie xcpt pulse oximitry Generic [facility] Work Phone: Start: 11-27-2023 Ecg routine ecg w/le ast 12 lds trcg only w/o i&r Nomra Geiger CNP Work Phone: Start: 11-27-2023 OBTAIN [...] Phone: Start: 11-27-2023 Lipid panel Norma Tavares [employer] Work Phone: Start: 11-27-2023 End: 11-27-2023 Glucose measurement Generic [facility] Work Phone: Start: 11-27-2023 Thyrotropin [Units/v olume] in Serum or Plasma [facility] Start: 11-27-2023 Assay of troponin quantitative [...] 3 comp foot exam completed Paty Ortega [employer] Work Phone: Start: 02-19-2023 3 comp foot exam completed Paty Ortega [employer] Work Phone: Start: 02-12-2023 Lipid 1996 panel - S laurence or Plasma Ayanna Albert DO Work Phone: Start: 02-12-2023 Thyrotropin [Units/v olume] in Serum or Plasma Ayanna Albert DO Work Phone: Start: 10-19-2022 3 comp foot exam completed Paty Ortega [employer] Work Phone: Start: 06-19-2022 3 comp foot exam completed Paty Ortega [employer] Work Phone: Start: 02-13-2022 3 comp foot exam completed Mary Vargas MD Work Phone: Start: 10-13-2021 3 comp foot exam completed Paty Ortega [employer] Work Phone: Start: 06-20-2021 3 comp foot exam completed Paty Ortega [employer] Work Phone: Start: 06-11-2021 Microalbumin [Mass/v olume] in Urine by Test strip Paty Ortega [employer] Work Phone: Start: 02-26-2021 Duplex scan extracra nial art compl bi study Mary Vargas MD Work Phone: Start: 02-18-2021 3 comp foot exam completed Mary Vargas MD Work Phone: Start: 10-18-2020 3 comp foot exam completed Paty Ortega Start: 10-14-2020 Ophthalmic examinati on and evaluation Paty Ortega [employer] Work Phone: Start: 10-03-2020 Microalbumin [Mass/v olume] [...] EJACULATION WITHIN 48 HRS. [facility] VOL24,NO.2, , PG.339 Performed By: #### [id number] #### MIKE [employer] [address] [place], [place] [id number] Start: 03-13-2019 3 comp foot exam completed Keeley Patton Start: 11-11-2018 3 comp foot exam completed Mary Vargas Start: 07-05-2018 3 comp foot exam completed Keeley Patton Start: 02-15-2017 3 comp foot exam completed Ya Parker Plan of Treatment Date Care Activity Detail Author Start: 04-27-2026 Creatinine measurement Creatinine Level [facility] Start: 04-27-2026 Potassium measurement Potassium Level [facility] Start: 04-03-2026 Echocardiography Echocardiogram [facility] Start: 02-28-2026 Thyroid stimulating hormone measurement TSH Level [facility] Start: 02-12-2026 Creatinine measurement Creatinine Level [facility] Start: 02-12-2026 Lipid panel Lipid Panel [facility] Start: 02-12-2026 Potassium measurement Potassium Level [facility] Start: 02-12-2026 Thyroid stimulating hormone measurement TSH Level [facility] Start: 02-12-2026 Urine screening for protein Diabetes: Urine Protein Screening [facility] Start: 11-13-2025 Diabetic foot examination Diabetic Foot Exam [facility] Start: 10-27-2025 Screening for malignant neoplasm of lung Low-dose CT Lung Cancer Screen [facility] Start: 10-23-2025 Glaucoma screening Diabetes: Retinopathy Screening [facility] Start: 09-23-2025 eGFR Diabetes eGFR Diabetes [facility] Start: 09-05-2025 Urine screening for protein eGFR Diabetes [facility] Start: 08-27-2025 End: 08-27-2025 Patient encounter procedure 08/27/2025 1:30 PM EDT Office Visit [facility] Office Building [address] [place] [address] Ayanna Albert, DO [address] [facility] [address] [place], [place] [id number] [facility] Building Start: 08-14-2025 Hemoglobin A1c measurement A1C [facility] Start: 08-14-2025 Urine screening for protein eGFR Diabetes [facility] Start: 07-13-2025 End: 07-13-2025 Patient encounter procedure 07/13/2025 1:00 PM EDT Office Visit [facility] [place] [address] [place] [address] Paty Ortega, [employer] [address] [place] [address] [facility] [place] Start: 07-07-2025 Creatinine measurement Creatinine Level [facility] Start: 07-07-2025 Potassium measurement Potassium Level [facility] Start: 07-07-2025 Thyroid stimulating hormone measurement TSH Level [facility] Start: 07-02-2025 Influenza vaccination [facility] Start: 06-12-2025 End: 06-12-2025 Patient encounter procedure 06/12/2025 9:20 AM EDT Office Visit [facility] [address] [place] [address] Woo Small MD [facility] [place] [address] [facility] Start: 06-05-2025 End: 06-05-2025 Patient encounter procedure 06/05/2025 11:00 AM EDT Office Visit [facility] Medical Office Building [address] [place] [address] Maricruz Albert, PHARMACIST HOSPITAL-FILLER SPREADER, DNP [address] [facility] [address] [place] [address] [facility] Building Start: 06-01-2025 End: 05-01-2026 Basic metabolic 2000 panel - Serum or Plasma Basic metabolic panel Lab Routine Stage 3b chronic kidney disease (Multi) Edema, unspecified type Expected: 06/01/2025 (Approximate), Expires: 05/01/2026 [facility] Work Phone: Comment on above: Expected: 06/01/2025 (Approximate), Expi res: 05/01/2026 Start: 05-30-2025 Hemoglobin A1c measurement [facility] Start: 05-17-2025 End: 05-17-2025 Patient encounter procedure [facility] Start: 05-15-2025 End: 05-01-2026 Basic metabolic 2000 panel - Serum or Plasma Basic metabolic panel Lab Routine Stage 3b chronic kidney disease (Multi) Expected: 05/15/2025 (Approximate), Expires: 05/01/2026 [facility] Service Area Work Phone: Comment on above: Expected: 05/15/2025 (Approximate), Expi res: 05/01/2026 Start: 05-15-2025 End: 05-01-2026 CBC panel - Blood by Automated count CBC Lab Routine Stage 3b chronic kidney disease (Multi) Anemia due to stage 4 chronic kidney disease Expected: 05/15/2025 (Approximate), Expires: 05/01/2026 [facility] Work Phone: Comment on above: Expected: 05/15/2025 (Approximate), Expi res: 05/01/2026 Start: 05-14-2025 Hemoglobin A1c measurement [facility] Start: 05-14-2025 End: 05-14-2025 Patient encounter procedure 05/14/2025 11:20 AM EDT Office Visit [facility] [address] [place] [phone] Woo Small MD [address] [place] [address] [facility] Start: 05-09-2025 Patient discharge [facility] Start: 05-07-2025 Referral to service [facility] Start: 05-06-2025 [facility] Start: 05-05-2025 Application of intermittent pneumatic compression device [facility] Start: 05-05-2025 Following clinical pathway protocol [facility] Start: 05-05-2025 Assessment of risk of venous thromboembolism [facility] Start: 05-05-2025 Care regimes management [facility] Start: 05-05-2025 Catheterization of vein [facility] Start: 05-05-2025 Insertion of catheter into peripheral vein [facility] Start: 05-05-2025 Measuring intake and output [facility] Start: 05-05-2025 Notification of physician [facility] Start: 05-05-2025 Oxygen therapy [facility] Start: 05-05-2025 Providing care according to standard [facility] Start: 05-05-2025 Provision of activity privileges [facility] Start: 05-05-2025 Referral to occupational therapist [facility] Start: 05-05-2025 Referral to service [facility] Start: 05-05-2025 Gas panel - Arterial blood [facility] Start: 05-05-2025 Verification routine [facility] Start: 05-05-2025 Admission procedure [facility] Start: 05-05-2025 End: 05-05-2025 [facility] Start: 05-05-2025 Hospital admission, emergency, from emergency room, medical nature [facility] Start: 05-05-2025 End: 05-05-2025 [facility] Start: 05-05-2025 Continuous pulse oximetry [facility] Start: 05-05-2025 Dual pressure spontaneous ventilation support [facility] Start: 05-05-2025 Blood culture [facility] Start: 05-05-2025 Patient referral to dietitian [facility] Start: 04-28-2025 Urine screening for protein eGFR [facility] Start: 04-22-2025 Patient discharge [facility] Start: 04-21-2025 Application of intermittent pneumatic compression device [facility] Start: 04-20-2025 Referral to service [facility] Start: 04-20-2025 Referral to boring inspector [facility] Start: 04-20-2025 [facility] Start: 04-20-2025 Inhalation therapy procedure [facility] Start: 04-19-2025 [facility] Start: 04-19-2025 Referral to service [facility] Start: 04-19-2025 Care planning and problem solving actions [facility] Start: 04-19-2025 [facility] Start: 04-19-2025 Gas panel - Arterial blood [facility] Start: 04-19-2025 Serum inorganic phosphate measurement [facility] Start: 04-19-2025 Thyroid stimulating hormone measurement [facility] Start: 04-19-2025 Assessment of risk of venous thromboembolism [facility] Start: 04-19-2025 Care regimes management [facility] Start: 04-19-2025 Catheterization of vein [facility] Start: 04-19-2025 Continuous pulse oximetry [facility] Start: 04-19-2025 Elevation of head of bed [facility] Start: 04-19-2025 Incentive spirometry [facility] Start: 04-19-2025 Insertion of catheter into peripheral vein [facility] Start: 04-19-2025 Measuring intake and output [facility] Start: 04-19-2025 Notification of physician [facility] Start: 04-19-2025 Oxygen therapy [facility] Start: 04-19-2025 Patient referral to dietitian [facility] Start: 04-19-2025 Providing care according to standard [facility] Start: 04-19-2025 Referral to merchandising coordinator [facility] Start: 04-19-2025 Referral to occupational therapist [facility] Start: 04-19-2025 Referral to service [facility] Start: 04-19-2025 Respiratory therapy [facility] Start: 04-19-2025 Tobacco use cessation education [facility] Start: 04-19-2025 Urinalysis complete panel - Urine [facility] Start: 04-19-2025 Vital signs measurements [facility] Start: 04-19-2025 End: 04-19-2025 [facility] Start: 04-19-2025 Following clinical pathway protocol [facility] Start: 04-19-2025 Pulmonary ventilation perfusion study [facility] Start: 04-19-2025 Verification routine [facility] Start: 04-19-2025 Admission procedure [facility] Start: 04-19-2025 Continuous positive airway pressure ventilation treatment [facility] Start: 04-18-2025 Urine screening for protein eGFR Diabetes [facility] Start: 04-10-2025 Patient discharge [facility] Start: 04-08-2025 Administration of blood product [facility] Start: 04-07-2025 Application of intermittent pneumatic compression device [facility] Start: 04-07-2025 Hemodialysis care [facility] Start: 04-07-2025 End: 04-07-2025 [facility] Start: 04-07-2025 [facility] Start: 04-06-2025 [facility] Start: 04-06-2025 Care of hemodialysis equipment [facility] Start: 04-06-2025 Hemodialysis care [facility] Start: 04-06-2025 [facility] Start: 04-05-2025 End: 04-06-2025 [facility] Start: 04-05-2025 Care of hemodialysis equipment [facility] Start: 04-05-2025 Dialysis care [facility] Start: 04-05-2025 Referral to general surgeon [facility] Start: 04-05-2025 Continuous pulse oximetry [facility] Start: 04-05-2025 Dual pressure spontaneous ventilation support [facility] Start: 04-04-2025 End: 04-04-2025 [facility] Start: 04-04-2025 Care regimes management [facility] Start: 04-04-2025 Notification of physician [facility] Start: 04-04-2025 Referral to merchandising coordinator [facility] Start: 04-04-2025 End: 04-05-2025 [facility] Start: 04-04-2025 [facility] Start: 04-03-2025 Referral to boring inspector [facility] Start: 04-03-2025 Bacteria identified in Blood by Culture Blood Culture [facility] Start: 04-03-2025 Respiratory Panel (PCR) Respiratory Panel (PCR) [facility] Start: 04-03-2025 Following clinical pathway protocol [facility] Start: 04-03-2025 Lab findings surveillance [facility] Start: 04-03-2025 End: 04-03-2025 Care planning and problem solving actions [facility] Start: 04-03-2025 End: 04-03-2025 [facility] Start: 04-03-2025 End: 04-03-2025 Following clinical pathway protocol [facility] Start: 04-03-2025 Application of elastic bandage [facility] Start: 04-03-2025 Assessment of risk of venous thromboembolism [facility] Start: 04-03-2025 Bacteria identified in Sputum by Culture [facility] Start: 04-03-2025 Care regimes management [facility] Start: 04-03-2025 Consultation [facility] Start: 04-03-2025 Elevation of affected extremity [facility] Start: 04-03-2025 Fall prevention [facility] Start: 04-03-2025 Incentive spirometry [facility] Start: 04-03-2025 Inhalation therapy procedure [facility] Start: 04-03-2025 Insertion of catheter into peripheral vein [facility] Start: 04-03-2025 Introduction of urinary catheter [facility] Start: 04-03-2025 Measuring intake and output [facility] Start: 04-03-2025 Notification of physician [facility] Start: 04-03-2025 Oxygen therapy [facility] Start: 04-03-2025 Patient education [facility] Start: 04-03-2025 Patient referral to dietitian [facility] Start: 04-03-2025 Providing care according to standard [facility] Start: 04-03-2025 Provision of activity privileges [facility] Start: 04-03-2025 Referral to occupational therapist [facility] Start: 04-03-2025 Referral to service [facility] Start: 04-03-2025 Tobacco use cessation education [facility] Start: 04-03-2025 Vital signs measurements [facility] Start: 04-03-2025 Bacterial nucleic acid assay [facility] Start: 04-03-2025 Thyroid stimulating hormone measurement [facility] Start: 04-03-2025 Streptococcus pneumoniae antigen assay [facility] Start: 04-03-2025 Verification routine [facility] Start: 04-03-2025 Admission procedure [facility] Start: 04-03-2025 [facility] Start: 04-03-2025 End: 04-03-2025 [facility] Start: 04-03-2025 Continuous pulse oximetry [facility] Start: 04-03-2025 Dual pressure spontaneous ventilation support [facility] Start: 03-23-2025 Medicare Annual Wellness Visit Medicare Annual Wellness Visit (AWV) [facility] Start: 03-12-2025 End: 03-12-2025 Patient encounter procedure 03/12/2025 2:00 PM EDT Office Visit [facility] Endocr[facility]ology [place] [address] [place] [phone] Paty Ortega, FILLER SPREADER [address] [place] [address] [facility] [place] Start: 02-26-2025 End: 02-26-2026 Basic metabolic 2000 panel - Serum or Plasma Basic metabolic panel Lab Routine Stage 3b chronic kidney disease (Multi) Expected: 02/26/2025 (Approximate), Expires: 02/26/2026 [facility] Service Area Work Phone: Comment on above: Expected: 02/26/2025 (Approximate), Expi res: 02/26/2026 Start: 02-06-2025 Creatinine measurement Creatinine Level [facility] Start: 02-06-2025 Potassium measurement Potassium Level [facility] Start: 02-04-2025 Hemoglobin A1c measurement A1C [facility] Start: 11-29-2024 Screening for malignant neoplasm of lung Low-dose CT Lung Cancer Screen [facility] Start: 11-27-2024 Thyroid stimulating hormone measurement TSH Level [facility] Start: 11-26-2024 Creatinine measurement Creatinine Level [facility] Start: 11-26-2024 Potassium measurement Potassium Level [facility] Start: 11-20-2024 End: 11-20-2024 Patient encounter procedure 11/20/2024 2:45 PM EST Office Visit [facility] Endocrinology [place] [address] [place] [address] Paty Ortega CNP [address] [place] [address] [facility] [place] Start: 11-14-2024 End: 11-14-2024 Patient encounter procedure 11/14/2024 10:40 AM EST Office Visit [facility] [address] [address] Woo Small MD [address] [place] [address] [facility] Start: 11-13-2024 End: 11-13-2024 Patient encounter procedure 11/13/2024 11:30 AM EST Office Visit [facility] Endocrinology [place] [address] [place] [address] Paty Ortega CNP [address] [place] [address] [facility] [place] Start: 11-07-2024 End: 11-07-2024 Patient encounter procedure 11/07/2024 10:00 AM EST Office Visit [facility] [address] [place] [phone] Brock Groves MD [address] [id number] [facility] Start: 11-03-2024 End: 11-03-2024 Patient encounter procedure [facility] Start: 10-27-2024 End: 10-27-2024 Admission to same day surgery center 10/27/2024 10:05 AM EST - 10/27/2024 10:55 AM EST Surgery [facility] Cardiovascular Lab [address] [phone] Elías Rodriguez MD [address] [place] [address] Left Heart Cath [facility] Cardi[facility] Lab Comment on above: Left Heart Cath Start: 10-27-2024 Subsequent hospital visit by physician [facility] Procedural Care Unit Start: 10-18-2024 End: 10-18-2024 Patient encounter procedure 10/18/2024 1:20 PM EST Office Visit [facility] [address] floor [place] [phone] Woo Small MD [address] [place] [address] [facility] Start: 10-13-2024 Creatinine measurement Creatinine Level [facility] Start: 10-13-2024 Potassium measurement Potassium Level [facility] Start: 10-11-2024 Echocardiography Echocardiogram [facility] Start: 10-06-2024 Hemoglobin A1c measurement [facility] Start: 09-27-2024 Lipid panel Lipid Panel [facility] Start: 09-27-2024 Thyroid stimulating hormone measurement TSH Level [facility] Start: 08-29-2024 End: 08-29-2025 Comprehensive metabolic 2000 panel - Serum or Plasma Comprehensive metabolic panel Lab Routine Stage 3b chronic kidney disease (Multi) Expected: 08/29/2024 (Approximate), Expires: 08/29/2025 [facility] Service Area Work Phone: Comment on above: Expected: 08/29/2024 (Approximate), Expi res: 08/29/2025 Start: 08-29-2024 End: 08-29-2025 Microalbumin/Creatinine [Mass Ratio] in Urine Albumin-Creatinine Ratio, Urine Random Lab Routine Stage 3b chronic kidney disease (Multi) Expected: 08/29/2024 (Approximate), Expires: 08/29/2025 [facility] Work Phone: Comment on above: Expected: 08/29/2024 (Approximate), Expi res: 08/29/2025 Start: 08-29-2024 End: 08-29-2025 Urinalysis complete panel - Urine Urinalysis with Reflex Microscopic Lab Routine Stage 3b chronic kidney disease (Multi) Expected: 08/29/2024 (Approximate), Expires: 08/29/2025 [facility] Work Phone: Comment on above: Expected: 08/29/2024 (Approximate), Expi res: 08/29/2025 Start: 08-29-2024 End: 08-29-2024 Patient encounter procedure 08/29/2024 1:00 PM EDT Office Visit [facility] Medical Office Building [address] [place] [address] Maricruz Albert, PHARMACIST HOSPITAL-FILLER SPREADER, DNP [address] [place] [address] [facility] Medical Office Building Start: 08-25-2024 End: 02-23-2025 Microalbumin/Creatinine [Mass Ratio] in Urine Albumin , Urine Random Lab Routine Stage 3b chronic kidney disease (Multi) Expected: 08/25/2024 (Approximate), Expires: 02/23/2025 [facility] Work Phone: Comment on above: Expected: 08/25/2024 (Approximate), Expi res: 02/23/2025 Start: 08-09-2024 Urine screening for protein Diabetes: Urine Protein Screening [facility] Start: 07-21-2024 End: 07-21-2024 Patient encounter procedure 07/21/2024 1:45 PM EDT Office Visit [facility] Endocrinology [place] [address] [place] [address] Paty Ortega CNP [address] [place] [address] [facility] [place] Start: 07-02-2024 COVID-19 Vaccine ( season) COVID-19 Vaccine ( season) [facility] Start: 07-02-2024 COVID-19 Vaccine ( season) COVID-19 Vaccine ( season) [facility] Start: 07-02-2024 Influenza vaccination [facility] Start: 06-21-2024 Diabetic foot examination [facility] Start: 05-31-2024 Urine screening for protein eGFR Diabetes [facility] Start: 04-24-2024 End: 04-24-2024 ambulatory [facility] Start: 04-24-2024 End: 04-24-2024 Patient encounter procedure 04/24/2024 9:40 AM EDT Office Visit [facility] [address] [place] [phone] Woo Small MD [address] [place] [address] [facility] Start: 03-27-2024 Hemoglobin A1c measurement A1C [facility] Start: 02-26-2024 Hemoglobin A1c measurement [facility] Start: 02-24-2024 End: 02-23-2025 Basic metabolic 2000 panel - Serum or Plasma Basic metabolic panel Lab Routine Stage 3b chronic kidney disease (Multi) Expected: 02/24/2024 (Approximate), Expires: 02/23/2025 [facility] Service Area Work Phone: Comment on above: Expected: 02/24/2024 (Approximate), Expi res: 02/23/2025 Start: 02-24-2024 End: 02-23-2025 Phosphate [Mass/volume] in Serum or Plasma Phosphorus Lab Routine Stage 3b chronic kidney disease (Multi) Expected: 02/24/2024 (Approximate), Expires: 02/23/2025 [facility] Work Phone: Comment on above: Expected: 02/24/2024 (Approximate), Expi res: 02/23/2025 Start: 02-24-2024 End: 02-23-2025 Urate [Mass/volume] in Serum or Plasma Uric acid Lab Routine Stage 3b chronic kidney disease (Multi) Expected: 02/24/2024 (Approximate), Expires: 02/23/2025 [facility] Work Phone: Comment on above: Expected: 02/24/2024 (Approximate), Expi res: 02/23/2025 Start: 02-24-2024 End: 02-24-2024 Patient encounter procedure 02/24/2024 1:45 PM EDT Office Visit [facility] Medical Office Building [address] [place] [phone] Maricruz Albert, PHARMACIST HOSPITAL-FI[employer]ER SPREADER, DNP [address] [facility] [address] [place] [address] [facility] Medical Office [facility] Start: 02-20-2024 Diabetic foot examination Foot Exam [facility] Start: 02-18-2024 End: 02-18-2024 ambulatory [facility] End[facility] [place] Start: 02-18-2024 End: 02-18-2024 Patient encounter procedure 02/18/2024 1:00 PM EDT Office Visit [facility] Endocr[facility] [place] [address] [place] [phone] Paty Ortega, FILLER SPREADER [address] [place] [address] [facility] [place] Start: 02-13-2024 Lipid panel Lipid Panel [facility] Start: 02-13-2024 Thyroid stimulating hormone measurement TSH Level [facility] Start: 01-14-2024 End: 01-14-2024 ambulatory [facility] Start: 01-14-2024 End: 01-14-2024 Patient encounter procedure 01/14/2024 11:00 AM EDT Office Visit [facility] [address] [facility] [place] [address] Aylin Lacy, FILLER SPREADER [address] [place] [address] [facility] Start: 01-12-2024 End: 01-12-2024 ambulatory [facility] Start: 01-12-2024 End: 01-12-2024 Patient encounter procedure [facility] Start: 01-10-2024 End: 10-08-2024 Comprehensive metabolic 2000 panel - Serum or Plasma Comprehensive Metabolic Panel Lab Routine 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) Expected: 01/10/2024 (Approximate), Expires: 10/08/2024 [facility] Work Phone: Comment on above: Expected: 01/10/2024 (Approximate), Expi res: 10/08/2024 Start: 01-10-2024 End: 10-08-2024 Hemoglobin A1c/Hemoglobin.total in Blood Hemoglobin A1c Lab Routine 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) Expected: 01/10/2024 (Approximate), Expires: 10/08/2024 [facility] Comment on above: Expected: 01/10/2024 (Approximate), Expi res: 10/08/2024 Start: 12-28-2023 Hemoglobin A1c measurement Diabetes: Hemoglobin A1C [facility] Start: 12-09-2023 Glaucoma screening Diabetes: Retinopathy Screening [facility] Start: 11-29-2023 End: 11-29-2023 Patient encounter procedure [facility] Start: 10-19-2023 Diabetic foot examination Foot Exam [facility] Start: 10-08-2023 End: 10-08-2023 Patient encounter procedure 10/08/2023 11:15 AM EST Office Visit [facility] Endocrinology [place] [address] [place] [phone] Mary Vargas MD [address] [place] [address] [facility] [place] Start: 09-11-2023 Hemoglobin A1c measurement [facility] Start: 08-25-2023 End: 08-25-2024 Basic metabolic 2000 panel - Serum or Plasma Basic metabolic panel Lab Routine Stage 3b chronic kidney disease (CMS/HCC) Expected: 08/25/2023 (Approximate), Expires: 08/25/2024 [facility] Service Area Work Phone: Comment on above: Expected: 08/25/2023 (Approximate), Expi res: 08/25/2024 Start: 08-25-2023 End: 08-25-2024 Microalbumin/Creatinine [Mass Ratio] in Urine Albumin, urine, random Lab Routine Stage 3b chronic kidney disease (CMS/HCC) Expected: 08/25/2023 (Approximate), Expires: 08/25/2024 [facility] Work Phone: Comment on above: Expected: 08/25/2023 (Approximate), Expi res: 08/25/2024 Start: 07-02-2023 COVID-19 Vaccine ( season) COVID-19 Vaccine ( season) [facility] Start: 07-02-2023 Influenza vaccination [facility] Start: 06-21-2023 End: 06-21-2023 Patient encounter procedure 06/21/2023 1:15 PM EDT Office Visit [facility] [place] [address] [place] [phone] Paty Ortega CNP [address] [place] [address] [facility] [place] Start: 06-19-2023 Diabetic foot examination Foot Exam [facility] Start: 06-01-2023 End: 02-20-2024 Comprehensive metabolic 2000 panel - Serum or Plasma Comprehensive Metabolic Panel Lab Routine Type 1 diabetes mellitus with diabetic neuropathy (HCC) Expected: 06/01/2023, Expires: 02/20/2024 [facility] Work Phone: Comment on above: Expected: 06/01/2023, Expires: 4 Start: 06-01-2023 End: 02-20-2024 Hemoglobin A1c/Hemoglobin.total in Blood Hemoglobin A1c Lab Routine Type 1 diabetes mellitus with diabetic neuropathy (HCC) Expected: 06/01/2023, Expires: 02/20/2024 [facility] Comment on above: Expected: 06/01/2023, Expires: Start: 05-14-2023 Hemoglobin A1c measurement A1C [facility] Start: 02-19-2023 End: 02-19-2023 Patient encounter procedure 02/19/2023 Office Visit Endocrinology Paty Ortega, TRISTAN [address] [place] [address] [facility] [place] Start: 02-13-2023 Diabetic foot examination Foot Exam [facility] Start: 02-05-2023 End: 02-05-2023 Patient encounter procedure 02/05/2023 Appointment Cardiology Paty Ortega CNP [address] [place] [address] [facility] Start: 01-30-2023 End: 10-20-2023 Complete blood count with white cell differential, manual CBC and Differential Lab Routine Type 1 diabetes mellitus with diabetic neuropathy (HCC) Expected: 01/30/2023, Expires: 10/20/2023 [facility] Comment on above: Expected: 01/30/2023, Expires: Start: 01-30-2023 End: 12-20-2023 Comprehensive metabolic 2000 panel - Serum or Plasma Comprehensive Metabolic Panel Lab Routine Type 1 diabetes mellitus with diabetic neuropathy (HCC) Expected: 01/30/2023, Expires: 10/20/2023 [facility] Comment on above: Expected: 01/30/2023, Expires: 3 Start: 01-30-2023 End: 10-20-2023 Hemoglobin A1c/Hemoglobin.total in Blood Hemoglobin A1c Lab Routine Type 1 diabetes mellitus with diabetic neuropathy (HCC) Expected: 01/30/2023, Expires: 10/20/2023 [facility] Comment on above: Expected: 01/30/2023, Expires: 3 Start: 01-30-2023 End: 10-20-2023 Lipid 1996 panel - Serum or Plasma Lipid Panel Lab Routine Type 1 diabetes mellitus with diabetic neuropathy (HCC) Expected: 01/30/2023, Expires: 10/20/2023 [facility] Comment on above: Expected: 01/30/2023, Expires: 3 Start: 01-30-2023 End: 10-19-2023 Microalbumin measurement, urine, quantitative Microalbumin/Creatinine Ratio, UR Random Lab Routine Type 1 diabetes mellitus with diabetic neuropathy (HCC) Expected: 01/30/2023, Expires: 10/19/2023 [facility] Comment on above: Expected: 01/30/2023, Expires: 3 Start: 01-30-2023 End: 10-20-2023 Prostate specific Ag [Mass/volume] in Serum or Plasma PSA, Screen Lab Routine Prostate cancer screening Expected: 01/30/2023, Expires: 10/20/2023 [facility] Comment on above: Expected: 01/30/2023, Expires: 3 Start: 01-30-2023 End: 10-20-2023 Thyrotropin [Units/volume] in Serum or Plasma TSH Lab Routine Type 1 diabetes mellitus with diabetic neuropathy (HCC) Expected: 01/30/2023, Expires: 10/20/2023 [facility] Comment on above: Expected: 01/30/2023, Expires: 3 Start: 01-30-2023 End: 10-20-2023 Thyroxine (T4) free [Mass/volume] in Serum or Plasma T4, Free Lab Routine Type 1 diabetes mellitus with diabetic neuropathy (HCC) Expected: 01/30/2023, Expires: 10/20/2023 [facility] Comment on above: Expected: 01/30/2023, Expires: 3 Start: 01-25-2023 [email or web address], Provider: Zoila Lopez, Status: Pen, Time: 2:45 PM [email or web address], Provider: Zoila Lopez, Status: Pen, Time: 2:45 PM [facility] Start: 01-18-2023 PTRECHECKA, Provider: Carlene Whitehead, Status: Pen, Time: 2:00 PM PTRECHECKA, Provider: Carlene Whitehead, Status: Pen, Time: 2:00 PM [facility] Work Phone: Start: 01-15-2023 [email or web address], Provider: Chaya Chan, Status: Pen, Time: 10:00 AM PTFUADULT4, Provider: Chaya Chan, Status: Pen, Time: 10:00 AM [facility] Work Phone: Start: 01-13-2023 [email or web address], Provider: Chaya Chan, Status: Pen, Time: 10:00 AM PTFUADULT4, Provider: Chaya Chan, Status: Pen, Time: 10:00 AM [facility] Work Phone: Start: 01-08-2023 [email or web address], Provider: Chaya Chan, Status: Pen, Time: 10:00 AM [email or web address], Provider: Chaya Chan, Status: Pen, Time: 10:00 AM [facility] Work Phone: Start: 01-06-2023 [email or web address], Provider: Zoila Lopez, Status: Pen, Time: 10:00 AM PTFUADULT4, Provider: Zoila Lopez, Status: Pen, Time: 10:[address] [facility] Work Phone: Start: 01-01-2023 [email or web address], Provider: Zoila Lopez, Status: Pen, Time: 10:45 AM PTFUADULT4, Provider: Zoila Lopez, Status: Pen, Time: 10:45 AM [facility] Work Phone: Start: 12-30-2022 PTFUADULT4, Provider: Zoila Lopez, Status: Pen, Time: 4:15 PM PTFUADULT4, Provider: Zoila Lopez, Status: Pen, Time: 4:15 PM [facility] Work Phone: Start: 12-25-2022 [email or web address], Provider: Chaya Chan, Status: Pen, Time: 7:45 AM [email or web address], Provider: Chaya Chan, Status: Pen, Time: 7:45 AM [facility] Work Phone: Start: 10-19-2022 End: 10-19-2022 Patient encounter procedure 10/19/2022 Office Visit Endocrinology Paty Ortega CNP [address] [place] [address] [facility] [place] Start: 10-13-2022 Diabetic foot examination Foot Exam [facility] Start: 09-08-2022 Hemoglobin A1c measurement A1C [facility] Start: 07-02-2022 Influenza vaccination [facility] Start: 06-20-2022 Diabetic foot examination Foot Exam [facility] Start: 06-19-2022 End: 06-19-2022 Patient encounter procedure 06/19/2022 Office Visit Endocrinology Paty Ortega CNP [address] [place] [address] [facility] [place] Start: 06-11-2022 Microalbumin measurement, urine, quantitative Urine Microalbumin [facility] Start: 05-27-2022 History and physical examination, annual for health maintenance Wellness Visit [facility] Start: 05-27-2022 Medicare Wellness Visit Medicare Wellness Visit [facility] Start: 04-13-2022 Hemoglobin A1c measurement A1C [facility] Start: 03-06-2022 COVID-19 Vaccine (4 - Booster for Moderna series) COVID-19 Vaccine (4 - Booster for Moderna series) [facility] Start: 02-18-2022 Diabetic foot examination Foot Exam [facility] Start: 02-13-2022 End: 02-13-2022 Patient encounter procedure 02/13/2022 Office Visit Endocrinology Mary Vargas MD [address] [place] [address] [facility] [place] Start: 01-30-2022 End: 10-14-2022 Comprehensive metabolic 2000 panel - Serum or Plasma Comprehensive Metabolic Panel Lab Routine Type 1 diabetes mellitus with diabetic neuropathy (HCC) Expected: 01/30/2022, Expires: 10/14/2022 [facility] Work Phone: Comment on above: Expected: 01/30/2022, Expires: 2 Start: 01-30-2022 End: 10-14-2022 Hemoglobin A1c/Hemoglobin.total in Blood Hemoglobin A1c Lab Routine Type 1 diabetes mellitus with diabetic neuropathy (HCC) Expected: 01/30/2022, Expires: 10/14/2022 [facility] Comment on above: Expected: 01/30/2022, Expires: 2 Start: 01-30-2022 End: 10-14-2022 Lipid 1996 panel - Serum or Plasma Lipid Panel Lab Routine Type 1 diabetes mellitus with diabetic neuropathy (HCC) Expected: 01/30/2022, Expires: 10/14/2022 [facility] Comment on above: Expected: 01/30/2022, Expires: 2 Start: 01-01-2022 COVID-19 Vaccine (4 - Booster for Moderna series) COVID-19 Vaccine (4 - Booster for Moderna series) [facility] Start: 01-01-2022 COVID-19 Vaccine (4 - Moderna series) COVID-19 Vaccine (4 - Moderna series) [facility] Start: 12-12-2021 Hemoglobin A1c measurement A1C [facility] Start: 12-12-2021 Microalbumin measurement, urine, quantitative Urine Microalbumin [facility] Start: 12-12-2021 Urine screening for protein [facility] Start: 10-18-2021 Diabetic foot examination Foot Exam [facility] Start: 10-14-2021 Glaucoma screening [facility] Start: 10-13-2021 End: 10-13-2021 Patient encounter procedure 10/13/2021 Office Visit Endocrinology Paty Ortega, [employer] [address] [place] [address] [facility] [place] Start: 10-03-2021 Albumin DL <= 20 mg/L (U) [Mass/Vol] Urine Microalbumin [facility] Start: 10-03-2021 Microalbumin measurement, urine, quantitative Urine Microalbumin [facility] Start: 10-01-2021 End: 06-21-2022 Comprehensive metabolic 2000 panel - Serum or Plasma Comprehensive Metabolic Panel Lab Routine Type 1 diabetes mellitus with diabetic polyneuropathy (HCC) Expected: 10/01/2021, Expires: 06/21/2022 [facility] Work Phone: Comment on above: Expected: 10/01/2021, Expires: 2 Start: 10-01-2021 End: 06-21-2022 Hemoglobin A1c/Hemoglobin.total in Blood Hemoglobin A1c Lab Routine Type 1 diabetes mellitus with diabetic polyneuropathy (HCC) Expected: 10/01/2021, Expires: 06/21/2022 [facility] Comment on above: Expected: 10/01/2021, Expires: 2 Start: 10-01-2021 End: 06-21-2022 Thyrotropin [Units/volume] in Serum or Plasma TSH Lab Routine Type 1 diabetes mellitus with diabetic polyneuropathy (HCC) Expected: 10/01/2021, Expires: 06/21/2022 [facility] Comment on above: Expected: 10/01/2021, Expires: 2 Start: 10-01-2021 End: 06-21-2022 Thyroxine (T4) free [Mass/volume] in Serum or Plasma T4, Free Lab Routine Type 1 diabetes mellitus with diabetic polyneuropathy (HCC) Expected: 10/01/2021, Expires: 06/21/2022 [facility] Comment on above: Expected: 10/01/2021, Expires: 2 Start: 09-11-2021 Hemoglobin A1c measurement A1C [facility] Start: 08-13-2021 Hemoglobin A1c measurement A1C [facility] Start: 07-31-2021 COVID-19 Vaccine (3 - Booster for Moderna series) COVID-19 Vaccine (3 - Booster for Moderna series) [facility] Start: 07-04-2021 Prostate specific antigen measurement PSA Level [facility] Start: 07-02-2021 Influenza vaccination Sequential Influenza Vaccine (#1) [facility] Start: 06-20-2021 End: 06-20-2021 Patient encounter procedure 06/20/2021 Office Visit Endocrinology Paty Ortega CNP [address] [place] [address] [phone] [facility] [place] Start: 04-16-2021 History and physical examination, annual for health maintenance Wellness Visit [facility] Start: 04-03-2021 HbA1c (Bld) [Mass fraction] A1C [facility] Start: 02-18-2021 End: 02-18-2021 Office Visit 02/18/2021 Office Visit Endocrinology Mary Vargas MD [address] [place] [address] [phone] [facility] Start: 02-02-2021 End: 10-19-2021 Comprehensive metabolic 2000 panel Comprehensive Metabolic Panel Lab Routine Type 1 diabetes mellitus with diabetic polyneuropathy (HCC) Expected: 02/02/2021, Expires: 10/19/2021 [facility] Comment on above: Expected: 02/02/2021, Expires: Start: 02-02-2021 End: 10-19-2021 Free T4 [Mass/Vol] T4, Free Lab Routine Type 1 diabetes mellitus with diabetic polyneuropathy (HCC) Expected: 02/02/2021, Expires: 10/19/2021 [facility] Comment on above: Expected: 02/02/2021, Expires: Start: 02-02-2021 End: 10-19-2021 HbA1c (Bld) [Mass fraction] Hemoglobin A1c Lab Routine Type 1 diabetes mellitus with diabetic polyneuropathy (HCC) Expected: 02/02/2021, Expires: 10/19/2021 [facility] Comment on above: Expected: 02/02/2021, Expires: Start: 02-02-2021 End: 10-19-2021 TSH Qn TSH Lab Routine Type 1 diabetes mellitus with diabetic polyneuropathy (HCC) Expected: 02/02/2021, Expires: 10/19/2021 [facility] Comment on above: Expected: 02/02/2021, Expires: Start: 12-11-2020 HbA1c (Bld) [Mass fraction] A1C [facility] Start: 11-16-2020 Diabetic foot examination Foot Exam [facility] Start: 10-18-2020 End: 10-18-2020 Office Visit 10/18/2020 Office Visit Endocrinology Keeley Patton, [employer] [address] [id number] [facility] Start: 10-01-2020 End: 06-19-2021 Comprehensive metabolic 2000 panel Comprehensive Metabolic Panel Lab Routine Type 1 diabetes mellitus with diabetic polyneuropathy (HCC) Expected: 10/01/2020, Expires: 06/19/2021 [facility] Comment on above: Expected: 10/01/2020, Expires: Start: 10-01-2020 End: 06-19-2021 HbA1c (Bld) [Mass fraction] Hemoglobin A1c Lab Routine Type 1 diabetes mellitus with diabetic polyneuropathy (HCC) Expected: 10/01/2020, Expires: 06/19/2021 [facility] Comment on above: Expected: 10/01/2020, Expires: Start: 10-01-2020 End: 06-19-2021 Lipid 1996 panel Lipid Panel Lab Routine Type 1 diabetes mellitus with diabetic polyneuropathy (HCC) Expected: 10/01/2020, Expires: 06/19/2021 [facility] Comment on above: Expected: 10/01/2020, Expires: Start: 10-01-2020 End: 06-18-2021 Microalbumin measurement, urine, quantitative Microalbumin/Creatinine Ratio, UR Random Lab Routine Type 1 diabetes mellitus with diabetic polyneuropathy (HCC) Expected: 10/01/2020, Expires: 06/18/2021 [facility] Comment on above: Expected: 10/01/2020, Expires: Start: 07-17-2020 Diabetic foot examination FOOT EXAM [facility] Start: 07-02-2020 Influenza vaccination Sequential Influenza Vaccine (#1) [facility] Start: 07-02-2020 Influenza vaccination given Sequential Influenza Vaccine (#1) [facility] Start: 05-03-2020 HbA1c (Bld) [Mass fraction] A1C [facility] Start: 03-15-2020 End: 03-15-2020 Office Visit 03/15/2020 Office Visit Endocrinology Keeley Patton CNP [address] [place] [address] [phone] [facility] Start: 03-13-2020 Diabetic foot examination FOOT EXAM [facility] Start: 01-02-2020 HbA1c (Bld) [Mass fraction] A1C [facility] Start: 11-16-2019 End: 11-16-2019 Office Visit 11/16/2019 Office Visit Endocrinology Paty Ortega CNP [address] [place] [address] [phone] [facility] Start: 11-11-2019 Diabetic foot examination FOOT EXAM [facility] Start: 07-17-2019 End: 07-17-2019 Office Visit 07/17/2019 Office Visit Endocrinology Keeley Patton CNP [address] [place] [address] [phone] [facility] Start: 07-05-2019 Diabetic foot examination FOOT EXAM [facility] Start: 07-02-2019 Influenza vaccination given [facility] Start: 03-13-2019 End: 03-13-2019 Ambulatory 03/13/2019 Office Visit Endocrinology Mary Vargas MD [address] [place] [address] [phone] [facility] Start: 02-28-2019 Diabetic foot examination (regime/therapy) FOOT EXAM [facility] Start: 01-31-2019 Pneumococcal vaccination PNEUMOCOCCAL VACCINE AGE 65+ (2 of 2 - PPSV23) [facility] Start: 2018 Respiratory Syncytial Virus Immunization: Risk, 60-74 Risk, or 75+ (1 - 1-dose 75+ series) Respiratory Syncytial Virus Immunization: Risk, 60-74 Risk, or 75+ (1 - 1-dose 75+ series) [facility] Start: 2018 RSV High Risk: (Elderly (60+) or Population) (1 - 1-dose 75+ series) RSV High Risk: (Elderly (60+) or Population) (1 - 1-dose 75+ series) [facility] Start: 11-08-2018 End: 11-08-2018 Ambulatory 11/08/2018 Office Visit Endocrinology Ya Parker PA-C [address] [facility] [address] [place] [address] [phone] [facility] Start: 10-29-2018 Diabetic foot examination (regime/therapy) FOOT EXAM [facility] Work Phone: Start: 07-05-2018 End: 07-05-2018 Ambulatory 07/05/2018 Office Visit Endocrinology Paty Ortega CNP [address] [facility] [address] [place] [address] [phone] [facility] Start: 07-02-2018 Influenza vaccination [facility] Start: 07-02-2018 Influenza vaccination given SEQUENTIAL INFLUENZA VACCINE (#1) [facility] Start: 02-28-2018 Ambulatory 02/28/2018 Office Visit Endocrinology Alexandra Givens CNP [address] [facility] [place] [address] [phone] [facility] Start: 02-15-2018 3 comp foot exam completed FOOT EXAM [facility] Work Phone: Start: 10-29-2017 Ambulatory 10/29/2017 Office Visit Endocrinology Mary Vargas MD [address] [facility] [address] [place] [address] [phone] [facility] Start: 07-02-2017 Influenza vaccination SEQUENTIAL INFLUENZA VACCINE (#1) [facility] Work Phone: Start: 07-02-2017 SEQUENTIAL INFLUENZA VACCINE (#1) SEQUENTIAL INFLUENZA VACCINE (#1) [facility] Work Phone: Start: 05-10-2017 HbA1c [facility] Work Phone: Start: 2008 ABDOMINAL AORTIC ULTRASOUND ABDOMINAL AORTIC ULTRASOUND [facility] Work Phone: Start: 2008 Fall risk assessment [facility] Start: 2008 Pneumococcal vaccination PNEUMOCOCCAL VACCINE AGE 65+ (1 of 2 - PCV13) [facility] Work Phone: Start: 2008 PNEUMOCOCCAL VACCINE AGE 65+ (1 of 2 - PCV13) PNEUMOCOCCAL VACCINE AGE 65+ (1 of 2 - PCV13) [facility] Work Phone: Start: 2008 Ultrasound scan of abdominal aorta ABDOMINAL AORTIC ULTRASOUND [facility] Work Phone: Start: 2003 RSV patients and/or patients aged 60+ years (1 - 1-dose 60+ series) RSV patients and/or patients aged 60+ years (1 - 1-dose 60+ series) [facility] Start: 2003 Zoster vacc, sc ZOSTER VACCINE [facility] Work Phone: Start: 1993 Administration of herpes zoster vaccine ZOSTER VACCINES (1 of 2) [facility] Start: 1993 ZOSTER VACCINES (1 of 2) ZOSTER VACCINES (1 of 2) [facility] Start: 1965 DTaP/Tdap/Td Vaccines (1 - Tdap) DTaP/Tdap/Td Vaccines (1 - Tdap) [facility] Start: 1961 Hepatitis C antibody, confirmatory test Hepatitis C Screening [facility] Start: 1961 Hepatitis C screening Hepatitis C Screening [facility] Start: 1955 Adolescent depression screening assessment Depression Screening (PHQ9) [facility] Start: 1955 Depression screening using PHQ-9 (Patient Health Questionnaire 9) score [facility] Start: 1953 Albumin Test strip detection limit <= 20 mg/L mass conc (U) URINE MICROALBUMIN [facility] Work Phone: Start: 1953 Diabetic foot examination Diabetes: Foot Exam [facility] Start: 1953 Glaucoma screening [facility] Start: 1953 Ophthalmic examination and evaluation OPHTHALMOLOGY EXAM [facility] Start: 1953 Urine, microalbumin URINE MICROALBUMIN [facility] Work Phone: Start: 1949 Pneumococcal Vaccine: Age 65+ (1 of 2 - PPSV23) Pneumococcal Vaccine: Age 65+ (1 of 2 - PPSV23) [facility] Start: 1946 History and physical examination, annual for health maintenance Wellness Visit [facility] Start: 1943 End: 1943 Low-dose CT Lung Cancer Screen Low-dose CT Lung Cancer Screen [facility] Work Phone: Start: 1943 Protein mass conc COLONOSCOPY [facility] Start: 1943 Screening colonoscopy COLONOSCOPY [facility] Work Phone: Start: 1943 End: 1943 Screening for malignant neoplasm of lung Low-dose CT Lung Cancer Screen [facility] Start: 1943 End: 1943 Tetanus vaccination [facility] Start: 1943 Colonoscopy COLONOSCOPY [facility] Work Phone: Start: 1943 Cyanocobalamin vitamin b-12 Vitamin B-12 [facility] Start: 1943 Diabetes: Celiac Disease Screening Diabetes: Celiac Disease Screening [facility] Start: 1943 Fall risk assessment Falls Risk Assessment [facility] Start: 1943 Low dose computed tomography of chest without contrast Low-dose CT Lung Cancer Screen [facility] Start: 1943 Medicare Annual Wellness Visit Medicare Annual Wellness Visit (AWV) [facility] Start: 1943 Prostate specific antigen measurement PSA Level [facility] Start: 1943 Screening for malignant neoplasm of colon Colorectal Cancer Screening: Colonoscopy [facility] Start: 1943 TETANUS EVERY 10 YR TETANUS EVERY 10 YR [facility] Work Phone: Alanine aminotransferase [Enzymatic activity/volume] in Serum or Plasma [facility] Alanine aminotransferase [Enzymatic activity/volume] in Serum or Plasma [facility] Alanine aminotransferase [Enzymatic activity/volume] in Serum or Plasma [facility] Albumin [Mass/volume ] in Serum or Plasma [facility] Albumin [Mass/volume ] in Serum or Plasma [facility] Albumin [Mass/volume ] in Serum or Plasma [facility] Alkaline phosphatase [Enzymatic activity/volume] in Serum or Plasma [facility] Alkaline phosphatase [Enzymatic activity/volume] in Serum or Plasma [facility] Alkaline phosphatase [Enzymatic activity/volume] in Serum or Plasma [facility] Anion gap in Serum o r Plasma [facility] Anion gap in Serum o r Plasma [facility] Anion gap in Serum o r Plasma [facility] aPTT in Platelet poo r plasma by Coagulation assay aPTT - baseline Lab STAT As needed (Lab) for 1 Occurrences starting 11/26/2023 [facility] Work Phone: Comment on above: As needed (Lab) for 1 Occurrences starti ng 11/26/2023 Bacteria identified in Blood by Culture [facility] Work Phone: End: 11-26-2023 Bacteria identified in Blood by Culture [facility] Work Phone: Comment on above: STAT (Lab) for 1 Occurrences starting until 11/26/2023 Bacteria identified in Blood by Culture [facility] Work Phone: End: 10-27-2024 Bacteria identified in Unspecified specimen by Aerobe culture [facility] Work Phone: Comment on above: Once for 1 Occurrences starting 10/27/20 until 10/27/2024 End: 06-18-2018 Basic metabolic 2000 panel Basic Metabolic Panel Routine Type 1 diabetes mellitus with diabetic neuropathy (HCC) 1 Occurrences starting 06/17/2017 until 06/18/2018 [facility] Work Phone: Comment on above: 1 Occurrences starting 06/17/2017 until 06/18/2018 End: 10-14-2023 Basic metabolic 2000 panel - Serum or Plasma Basic Metabolic Panel Lab Routine Morning draw (Lab) for 3 Occurrences starting 10/12/2023 until 10/14/2023, 1 completed [facility] Work Phone: Comment on above: Morning draw (Lab) for 3 Occurrences sta rting 10/12/2023 until 10/14/2023, 1 completed End: 03-09-2026 Basic metabolic 2000 panel - Serum or Plasma Basic metabolic panel Lab Routine 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 NSTEMI (non-ST elevated myocardial infarction) ([facility]) 1 Occurrences starting 03/09/2025 until 03/09/2026 [facility] Work Phone: Comment on above: 1 Occurrences starting 03/09/2025 until 03/09/2026 Bilirubin, total measurement [facility] Bilirubin, total measurement [facility] Bilirubin, total measurement [facility] BUN/Creatinine ratio [facility] BUN/Creatinine ratio [facility] BUN/Creatinine ratio [facility] Calcium [Mass/volume ] in Serum or Plasma [facility] Calcium [Mass/volume ] in Serum or Plasma [facility] Calcium [Mass/volume ] in Serum or Plasma [facility] Carbon dioxide, tota l [Moles/volume] in Central venous blood [facility] Carbon dioxide, tota l [Moles/volume] in Central venous blood [facility] Carbon dioxide, tota l [Moles/volume] in Central venous blood [facility] End: 04-20-2022 Carotid artery doppler assessment Ultrasound doppler carotid Vascular Ultrasound Routine Bilateral carotid artery stenosis 1 Occurrences starting 02/18/2021 until 04/20/2022 [facility] Comment on above: 1 Occurrences starting 02/18/2021 until 04/20/2022 End: 12-20-2023 Carotid artery doppler assessment Ultrasound doppler carotid Vascular Ultrasound Routine Bilateral carotid artery stenosis 1 Occurrences starting 10/19/2022 until 12/20/2023 [facility] Work Phone: Comment on above: 1 Occurrences starting 10/19/2022 until 12/20/2023 Cath plmt l hrt & ar ts w/njx & angio img s&i LEFT HEART CATH Cardiovascular stress test abnormal Fatigue, unspecified type SOB (shortness of breath) [facility] End: 02-28-2019 CBC and Differential CBC and Differential Routine Type 1 diabetes mellitus with diabetic neuropathy (HCC) 1 Occurrences starting 02/28/2018 until 02/28/2019 [facility] CBC panel - Blood by Automated count CBC Lab STAT As needed (Lab) for 1 Occurrences starting 11/26/2023 [facility] Work Phone: Comment on above: As needed (Lab) for 1 Occurrences starti ng 11/26/2023 End: 12-02-2023 CBC panel - Blood by Automated count CBC Lab STAT Every other day (Lab) for 3 Occurrences starting 11/28/2023 until 12/02/2023 [facility] Work Phone: Comment on above: Every other day (Lab) for 3 Occurrences starting 11/28/2023 until 12/02/2023 End: 10-14-2023 CBC W Auto Differential panel - Blood CBC and Auto Differential Lab Routine Morning draw (Lab) for 3 Occurrences starting 10/12/2023 until 10/14/2023, 2 completed [facility] Work Phone: Comment on above: Morning draw (Lab) for 3 Occurrences sta rting 10/12/2023 until 10/14/2023, 2 completed Cholesterol [Mass/volume] in Serum or Plasma [facility] Cholesterol in HDL [Mass/volume] in Serum or Plasma [facility] End: 11-11-2019 Complete blood count with white cell differential, manual CBC and Differential Routine Type 1 diabetes mellitus with diabetic neuropathy (HCC) 1 Occurrences starting 11/11/2018 until 11/11/2019 [facility] Comment on above: 1 Occurrences starting 11/11/2018 until 11/11/2019 End: 03-13-2020 Complete blood count with white cell differential, manual CBC and Differential Routine 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) 1 Occurrences starting 03/13/2019 until 03/13/2020 [facility] Comment on above: 1 Occurrences starting 03/13/2019 until 03/13/2020 End: 02-19-2022 Complete blood count with white cell differential, manual CBC and Differential Lab Routine Type 1 diabetes mellitus with diabetic polyneuropathy (HCC) 1 Occurrences starting 02/18/2021 until 02/19/2022 [facility] Comment on above: 1 Occurrences starting 02/18/2021 until 02/19/2022 End: 02-14-2023 Complete blood count with white cell differential, manual CBC and Differential Lab Routine Type 1 diabetes mellitus with diabetic neuropathy (HCC) 1 Occurrences starting 02/13/2022 until 02/14/2023 [facility] Work Phone: Comment on above: 1 Occurrences starting 02/13/2022 until 02/14/2023 End: 02-18-2025 Complete blood count with white cell differential, manual CBC and Differential Lab Routine Type 1 diabetes mellitus with diabetic neuropathy (HCC) 1 Occurrences starting 02/18/2024 until 02/18/2025 [facility] Comment on above: 1 Occurrences starting 02/18/2024 until 02/18/2025 End: 07-22-2025 Complete blood count with white cell differential, manual CBC and Differential Lab Routine Type 1 diabetes mellitus with diabetic neuropathy (HCC) 1 Occurrences starting 07/21/2024 until 07/22/2025 [facility] Comment on above: 1 Occurrences starting 07/21/2024 until 07/22/2025 End: 03-13-2026 Complete blood count with white cell differential, manual CBC and Differential Lab Routine Type 1 diabetes mellitus with diabetic neuropathy (HCC) 1 Occurrences starting 03/12/2025 until 03/13/2026 [facility] Comment on above: 1 Occurrences starting 03/12/2025 until 03/13/2026 End: 10-27-2025 Complete PFT with Pre and Post Bronchodilator Complete PFT with Pre and Post Bronchodilator PFT Routine Pulmonary emphysema, unspecified emphysema type (HCC) 1 Occurrences starting 10/27/2024 until 10/27/2025 [facility] Comment on above: 1 Occurrences starting 10/27/2024 until 10/27/2025 End: 07-06-2019 Comprehensive metabolic 2000 panel Comprehensive Metabolic Panel Routine Type 1 diabetes mellitus with diabetic neuropathy (HCC) 1 Occurrences starting 07/05/2018 until 07/06/2019 [facility] Comment on above: 1 Occurrences starting 07/05/2018 until 07/06/2019 End: 11-11-2019 Comprehensive metabolic 2000 panel Comprehensive Metabolic Panel Routine Essential hypertension 1 Occurrences starting 11/11/2018 until 11/11/2019 [facility] Comment on above: 1 Occurrences starting 11/11/2018 until 11/11/2019 End: 07-17-2020 Comprehensive metabolic 2000 panel Comprehensive Metabolic Panel Lab Routine Type 1 diabetes mellitus with diabetic polyneuropathy (HCC) 1 Occurrences starting 07/17/2019 until 07/17/2020 [facility] Comment on above: 1 Occurrences starting 07/17/2019 until 07/17/2020 End: 11-16-2020 Comprehensive metabolic 2000 panel Comprehensive Metabolic Panel Lab Routine Type I diabetes mellitus with neurological manifestations, uncontrolled (HCC) 1 Occurrences starting 11/16/2019 until 11/16/2020 [facility] Comment on above: 1 Occurrences starting 11/16/2019 until 11/16/2020 End: 03-13-2020 Comprehensive metabolic 2000 panel Comprehensive Metabolic Panel Routine 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) 1 Occurrences starting 03/13/2019 until 03/13/2020 [facility] Comment on above: 1 Occurrences starting 03/13/2019 until 03/13/2020 End: 02-19-2022 Comprehensive metabolic 2000 panel - Serum or Plasma Comprehensive Metabolic Panel Lab Routine Type 1 diabetes mellitus with diabetic polyneuropathy (HCC) 1 Occurrences starting 02/18/2021 until 02/19/2022 [facility] Comment on above: 1 Occurrences starting 02/18/2021 until 02/19/2022 End: 02-14-2023 Comprehensive metabolic 2000 panel - Serum or Plasma Comprehensive Metabolic Panel Lab Routine Type 1 diabetes mellitus with diabetic neuropathy (HCC) 1 Occurrences starting 02/13/2022 until 02/14/2023 [facility] Comment on above: 1 Occurrences starting 02/13/2022 until 02/14/2023 End: 06-20-2023 Comprehensive metabolic 2000 panel - Serum or Plasma Comprehensive Metabolic Panel Lab Routine Type 1 diabetes mellitus with diabetic neuropathy (HCC) 1 Occurrences starting 06/19/2022 until 06/20/2023 [facility] Work Phone: Comment on above: 1 Occurrences starting 06/19/2022 until 06/20/2023 End: 02-18-2025 Comprehensive metabolic 2000 panel - Serum or Plasma Comprehensive Metabolic Panel Lab Routine Type 1 diabetes mellitus with diabetic neuropathy (HCC) 1 Occurrences starting 02/18/2024 until 02/18/2025 [facility] Work Phone: Comment on above: 1 Occurrences starting 02/18/2024 until 02/18/2025 End: 07-22-2025 Comprehensive metabolic 2000 panel - Serum or Plasma Comprehensive Metabolic Panel Lab Routine Type 1 diabetes mellitus with diabetic neuropathy (HCC) 1 Occurrences starting 07/21/2024 until 07/22/2025 [facility] Work Phone: Comment on above: 1 Occurrences starting 07/21/2024 until 07/22/2025 End: 11-14-2025 Comprehensive metabolic 2000 panel - Serum or Plasma Comprehensive Metabolic Panel Lab Routine Type 1 diabetes mellitus with diabetic neuropathy (HCC) 1 Occurrences starting 11/13/2024 until 11/14/2025 [facility] Work Phone: Comment on above: 1 Occurrences starting 11/13/2024 until 11/14/2025 End: 03-13-2026 Comprehensive metabolic 2000 panel - Serum or Plasma Comprehensive Metabolic Panel Lab Routine Type 1 diabetes mellitus with diabetic neuropathy (HCC) 1 Occurrences starting 03/12/2025 until 03/13/2026 [facility] Work Phone: Comment on above: 1 Occurrences starting 03/12/2025 until 03/13/2026 End: 02-28-2019 Comprehensive metabolic panel [AGGREGATE] Comprehensive Metabolic Panel Routine Type 1 diabetes mellitus with diabetic neuropathy (HCC) Essential hypertension 1 Occurrences starting 02/28/2018 until 02/28/2019 [facility] End: 10-30-2018 Comprehensive metabolic panel [AGGREGATE] Comprehensive Metabolic Panel Routine Type 1 diabetes mellitus with diabetic neuropathy (HCC) Essential hypertension Pure hypercholesterolemia 1 Occurrences starting 10/29/2017 until 10/30/2018 [facility] Work Phone: Creatinine [Mass/volume] in Serum or Plasma [facility] Creatinine [Mass/volume] in Serum or Plasma [facility] Creatinine [Mass/volume] in Serum or Plasma [facility] End: 11-26-2023 ECG 12 lead [facility] Service Area Work Phone: Comment on above: Once for 1 Occurrences starting 11/26/19 until 11/26/2023 Electrocardiogram, 12-lead PRN ACS symptoms Electrocardiogram, 12-lead PRN ACS symptoms ECG Routine As needed until discontinued starting 10/11/2023 [facility] Service Area Work Phone: Comment on above: As needed until discontinued starting Electrocardiogram, 12-lead PRN ACS symptoms Electrocardiogram, 12-lead PRN ACS symptoms ECG Routine As needed until discontinued starting 10/11/2023 [facility] Work Phone: Comment on above: As needed until discontinued starting Erythrocyte mean corpuscular volume determination [facility] Erythrocyte mean corpuscular volume determination [facility] Erythrocyte mean corpuscular volume determination [facility] End: 02-28-2019 External Lab Microalbumin/Creatinine External Lab Microalbumin/Creatinine Routine Type 1 diabetes mellitus with diabetic neuropathy (HCC) Essential hypertension 1 Occurrences starting 02/28/2018 until 02/28/2019 [facility] End: 11-11-2019 External Lab Microalbumin/Creatinine External Lab Microalbumin/Creatinine Routine Essential hypertension 1 Occurrences starting 11/11/2018 until 11/11/2019 [facility] Comment on above: 1 Occurrences starting 11/11/2018 until 11/11/2019 End: 02-19-2022 External Lab Microalbumin/Creatinine External Lab Microalbumin/Creatinine Lab Routine Type 1 diabetes mellitus with diabetic polyneuropathy (HCC) 1 Occurrences starting 02/18/2021 until 02/19/2022 [facility] Comment on above: 1 Occurrences starting 02/18/2021 until 02/19/2022 End: 02-14-2023 External Lab Microalbumin/Creatinine External Lab Microalbumin/Creatinine Lab Routine Type 1 diabetes mellitus with diabetic neuropathy (HCC) 1 Occurrences starting 02/13/2022 until 02/14/2023 [facility] Comment on above: 1 Occurrences starting 02/13/2022 until 02/14/2023 Glucose [Mass/volume ] in Serum or Plasma POCT GLUCOSE Point of Care Testing Routine 4x daily - AC and at bedtime until discontinued starting 10/11/2023 [facility] Work Phone: Comment on above: 4x daily - AC and at bedtime until disco ntinued starting 10/11/2023 End: 10-15-2023 Glucose [Mass/volume] in Serum or Plasma POCT GLUCOSE Point of Care Testing Routine 4 times daily before meals and at bedtime for 3 Days starting 10/12/2023 until 10/15/2023 [facility] Work Phone: Comment on above: 4 times daily before meals and at bedtim e for 3 Days starting 10/12/2023 until 10/15/2023 Glucose [Mass/volume ] in Serum or Plasma [facility] Glucose [Mass/volume ] in Serum or Plasma [facility] Glucose [Mass/volume ] in Serum or Plasma [facility] End: 02-28-2019 HbA1c Hemoglobin A1c Routine Type 1 diabetes mellitus with diabetic neuropathy (HCC) Essential hypertension 1 Occurrences starting 02/28/2018 until 02/28/2019 [facility] End: 10-30-2018 HbA1c Hemoglobin A1c Routine Type 1 diabetes mellitus with diabetic neuropathy (HCC) Essential hypertension Pure hypercholesterolemia 1 Occurrences starting 10/29/2017 until 10/30/2018 [facility] Work Phone: End: 07-17-2020 HbA1c (Bld) [Mass fraction] Hemoglobin A1c Lab Routine Type 1 diabetes mellitus with diabetic polyneuropathy (HCC) 1 Occurrences starting 07/17/2019 until 07/17/2020 [facility] Comment on above: 1 Occurrences starting 07/17/2019 until 07/17/2020 End: 11-16-2020 HbA1c (Bld) [Mass fraction] Hemoglobin A1c Lab Routine Type I diabetes mellitus with neurological manifestations, uncontrolled (HCC) 1 Occurrences starting 11/16/2019 until 11/16/2020 [facility] Comment on above: 1 Occurrences starting 11/16/2019 until 11/16/2020 End: 03-13-2020 HbA1c (Bld) [Mass fraction] Hemoglobin A1c Routine 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) 1 Occurrences starting 03/13/2019 until 03/13/2020 [facility] Comment on above: 1 Occurrences starting 03/13/2019 until 03/13/2020 Hematocrit [Volume Fraction] of Blood [facility] Hematocrit [Volume Fraction] of Blood [facility] Hematocrit [Volume Fraction] of Blood [facility] Hemoglobin [Mass/volume] in Blood [facility] Hemoglobin [Mass/volume] in Blood [facility] Hemoglobin [Mass/volume] in Blood [facility] End: 02-19-2022 Hemoglobin A1c/Hemoglobin.total in Blood Hemoglobin A1c Lab Routine Type 1 diabetes mellitus with diabetic polyneuropathy (HCC) 1 Occurrences starting 02/18/2021 until 02/19/2022 [facility] Comment on above: 1 Occurrences starting 02/18/2021 until 02/19/2022 End: 02-14-2023 Hemoglobin A1c/Hemoglobin.total in Blood Hemoglobin A1c Lab Routine Type 1 diabetes mellitus with diabetic neuropathy (HCC) 1 Occurrences starting 02/13/2022 until 02/14/2023 [facility] Comment on above: 1 Occurrences starting 02/13/2022 until 02/14/2023 End: 06-20-2023 Hemoglobin A1c/Hemoglobin.total in Blood Hemoglobin A1c Lab Routine Type 1 diabetes mellitus with diabetic neuropathy (HCC) 1 Occurrences starting 06/19/2022 until 06/20/2023 [facility] Comment on above: 1 Occurrences starting 06/19/2022 until 06/20/2023 End: 02-18-2025 Hemoglobin A1c/Hemoglobin.total in Blood Hemoglobin A1c Lab Routine Type 1 diabetes mellitus with diabetic neuropathy (HCC) 1 Occurrences starting 02/18/2024 until 02/18/2025 [facility] Comment on above: 1 Occurrences starting 02/18/2024 until 02/18/2025 End: 07-22-2025 Hemoglobin A1c/Hemoglobin.total in Blood Hemoglobin A1c Lab Routine Type 1 diabetes mellitus with diabetic neuropathy (HCC) 1 Occurrences starting 07/21/2024 until 07/22/2025 [facility] Comment on above: 1 Occurrences starting 07/21/2024 until 07/22/2025 End: 11-14-2025 Hemoglobin A1c/Hemoglobin.total in Blood Hemoglobin A1c Lab Routine Type 1 diabetes mellitus with diabetic neuropathy (HCC) 1 Occurrences starting 11/13/2024 until 11/14/2025 [facility] Comment on above: 1 Occurrences starting 11/13/2024 until 11/14/2025 End: 03-13-2026 Hemoglobin A1c/Hemoglobin.total in Blood Hemoglobin A1c Lab Routine Type 1 diabetes mellitus with diabetic neuropathy (HCC) 1 Occurrences starting 03/12/2025 until 03/13/2026 [facility] Comment on above: 1 Occurrences starting 03/12/2025 until 03/13/2026 Hemoglobin A1c/Hemoglobin.total in Blood [facility] End: 07-06-2019 Hemoglobin A1c/Hemoglobin.total mass fraction (Bld) Hemoglobin A1c Routine Type 1 diabetes mellitus with diabetic neuropathy (HCC) 1 Occurrences starting 07/05/2018 until 07/06/2019 [facility] Comment on above: 1 Occurrences starting 07/05/2018 until 07/06/2019 End: 11-11-2019 Hemoglobin A1c/Hemoglobin.total mass fraction (Bld) Hemoglobin A1c Routine Type 1 diabetes mellitus with diabetic neuropathy (HCC) 1 Occurrences starting 11/11/2018 until 11/11/2019 [facility] Comment on above: 1 Occurrences starting 11/11/2018 until 11/11/2019 End: 06-18-2018 Hemoglobin A1c/Hemoglobin.total mass fraction (Bld) Hemoglobin A1c Routine Type 1 diabetes mellitus with diabetic neuropathy (HCC) 1 Occurrences starting 06/17/2017 until 06/18/2018 [facility] Work Phone: Comment on above: 1 Occurrences starting 06/17/2017 until 06/18/2018 Heparin unfractionat ed [Units/volume] in Platelet poor plasma by Chromogenic method [facility] Work Phone: Comment on above: As needed (Lab) for 1 Occurrences starti ng 11/26/2023 As needed (Lab) for 30 Occurrences starting 11/26/2023 End: 10-13-2023 Home O2 eval (desaturation screen) Home O2 eval (desaturation screen) Respiratory Care Routine Once for 1 Occurrences starting 10/13/2023 until 10/13/2023 [facility] Service Area Work Phone: Comment on above: Once for 1 Occurrences starting 10/13/20 23 until 10/13/2023 Lactic acid measurement [facility] Lactic acid measurement [facility] Legionella pneumophi la Ag [Presence] in Urine [facility] Leukocytes [#/volume ] in Blood [facility] Leukocytes [#/volume ] in Blood [facility] Leukocytes [#/volume ] in Blood [facility] End: 11-11-2019 Lipid 1996 panel Lipid Panel Routine Type 1 diabetes mellitus with diabetic neuropathy (HCC) 1 Occurrences starting 11/11/2018 until 11/11/2019 [facility] Comment on above: 1 Occurrences starting 11/11/2018 until 11/11/2019 End: 07-17-2020 Lipid 1996 panel Lipid Panel Lab Routine Pure hypercholesterolemia 1 Occurrences starting 07/17/2019 until 07/17/2020 [facility] Comment on above: 1 Occurrences starting 07/17/2019 until 07/17/2020 End: 02-19-2022 Lipid 1996 panel - Serum or Plasma Lipid Panel Lab Routine Type 1 diabetes mellitus with diabetic polyneuropathy (HCC) 1 Occurrences starting 02/18/2021 until 02/19/2022 [facility] Comment on above: 1 Occurrences starting 02/18/2021 until 02/19/2022 End: 02-18-2025 Lipid 1996 panel - Serum or Plasma Lipid Panel Lab Routine Type 1 diabetes mellitus with diabetic neuropathy (HCC) 1 Occurrences starting 02/18/2024 until 02/18/2025 [facility] Comment on above: 1 Occurrences starting 02/18/2024 until 02/18/2025 End: 07-22-2025 Lipid 1996 panel - Serum or Plasma Lipid Panel Lab Routine Type 1 diabetes mellitus with diabetic neuropathy (HCC) 1 Occurrences starting 07/21/2024 until 07/22/2025 [facility] Comment on above: 1 Occurrences starting 07/21/2024 until 07/22/2025 End: 11-14-2025 Lipid 1996 panel - Serum or Plasma Lipid Panel Lab Routine Type 1 diabetes mellitus with diabetic neuropathy (HCC) Pure hypercholesterolemia 1 Occurrences starting 11/13/2024 until 11/14/2025 [facility] Comment on above: 1 Occurrences starting 11/13/2024 until 11/14/2025 End: 03-13-2026 Lipid 1996 panel - Serum or Plasma Lipid Panel Lab Routine Type 1 diabetes mellitus with diabetic neuropathy (HCC) 1 Occurrences starting 03/12/2025 until 03/13/2026 [facility] Comment on above: 1 Occurrences starting 03/12/2025 until 03/13/2026 End: 02-28-2019 Lipid panel Lipid Panel Routine Type 1 diabetes mellitus with diabetic neuropathy (HCC) 1 Occurrences starting 02/28/2018 until 02/28/2019 [facility] Low density lipoprot ein cholesterol measurement [facility] Magnesium measurement [facility] Mean corpuscular hemoglobin concentration determination [facility] Mean corpuscular hemoglobin concentration determination [facility] Mean corpuscular hemoglobin concentration determination [facility] Mean corpuscular hemoglobin determination [facility] Mean corpuscular hemoglobin determination [facility] Mean corpuscular hemoglobin determination [facility] Measurement of renal function [facility] Measurement of renal function [facility] Measurement of renal function [facility] Natriuretic peptide. B prohormone N-Terminal [Mass/volume] in Serum or Plasma [facility] Neutrophil count [facility] Neutrophil count [facility] Neutrophil count [facility] Neutrophil percent differential count [facility] [place] Neutrophil percent differential count [facility] Neutrophil percent differential count [facility] Noninvasive Ventilation Noninvas frank Ventilation Respiratory Care Routine For RT frequency use only for continuous procedures with task-based reminders at 8a and 8p until discontinued starting 11/26/2023 [facility] Work Phone: Comment on above: For RT frequency use only for continuous procedures with task-based reminders at 8a and 8p until discontinued starting 11/26/2023 Patient Education [facility] Work Phone: Patient referral [facility] Work Phone: Platelets [#/volume] in Blood [facility] Platelets [#/volume] in Blood [facility] Platelets [#/volume] in Blood [facility] Potassium measurement [facility] Potassium measurement [facility] Potassium measurement [facility] Procalcitonin [Mass/volume] in Serum or Plasma by Immunoassay [facility] End: 03-12-2020 Prostate specific Ag [Mass/Vol] PSA, Screen Routine Prostate cancer screening 1 Occurrences starting 03/13/2019 until 03/12/2020 [facility] Comment on above: 1 Occurrences starting 03/13/2019 until 03/12/2020 End: 02-13-2023 Prostate specific Ag [Mass/volume] in Serum or Plasma PSA, Screen Lab Routine Prostate cancer screening 1 Occurrences starting 02/13/2022 until 02/13/2023 [facility] Comment on above: 1 Occurrences starting 02/13/2022 until 02/13/2023 Prothrombin time (PT) Protime-IN R Lab STAT As needed (Lab) for 1 Occurrences starting 11/26/2023 [facility] Work Phone: Comment on above: As needed (Lab) for 1 Occurrences starti ng 11/26/2023 End: 10-29-2018 PSA, Screen PSA, Screen Routine Prostate cancer screening 1 Occurrences starting 10/29/2017 until 10/29/2018 [facility] Work Phone: Red blood cell count [facility] Red blood cell count [facility] Red blood cell count [facility] Red cell distributio n width determination [facility] Red cell distributio n width determination [facility] Red cell distributio n width determination [facility] End: 10-11-2023 Respiratory care eval and treat Respiratory care eval and treat Respiratory Care Routine Once for 1 Occurrences starting 10/11/2023 until 10/11/2023 [facility] Work Phone: Comment on above: Once for 1 Occurrences starting 10/11/20 23 until 10/11/2023 Respiratory pathogen s DNA and RNA panel - Respiratory specimen by ALICE with probe detection [facility] Serum chloride measurement [facility] Serum chloride measurement [facility] Serum chloride measurement [facility] Sodium measurement [facility] Sodium measurement [facility] Sodium measurement [facility] End: 10-21-2024 SPECT Heart perfusion NM Myocardial Perfusion Multiple SPECT Imaging Routine Congestive heart failure, unspecified HF chronicity, unspecified heart failure type (HCC) 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 1 Occurrences starting 10/21/2023 until 10/21/2024 [facility] Work Phone: Comment on above: 1 Occurrences starting 10/21/2023 until 10/21/2024 End: 11-11-2019 T4 free mass conc T4, Free Routine Type 1 diabetes mellitus with diabetic neuropathy (HCC) 1 Occurrences starting 11/11/2018 until 11/11/2019 [facility] Comment on above: 1 Occurrences starting 11/11/2018 until 11/11/2019 End: 02-18-2025 Thyrotropin [Units/volume] in Serum or Plasma TSH Lab Routine Type 1 diabetes mellitus with diabetic neuropathy (HCC) 1 Occurrences starting 02/18/2024 until 02/18/2025 [facility] Comment on above: 1 Occurrences starting 02/18/2024 until 02/18/2025 End: 07-22-2025 Thyrotropin [Units/volume] in Serum or Plasma TSH Lab Routine Type 1 diabetes mellitus with diabetic neuropathy (HCC) 1 Occurrences starting 07/21/2024 until 07/22/2025 [facility] Comment on above: 1 Occurrences starting 07/21/2024 until 07/22/2025 End: 11-14-2025 Thyrotropin [Units/volume] in Serum or Plasma TSH Lab Routine Type 1 diabetes mellitus with diabetic neuropathy (HCC) 1 Occurrences starting 11/13/2024 until 11/14/2025 [facility] Comment on above: 1 Occurrences starting 11/13/2024 until 11/14/2025 Thyrotropin [Units/volume] in Serum or Plasma TSH with Reflex Free T4 Lab Routine 02/12/2025 10:25 AM EDT [facility] Work Phone: End: 03-13-2026 Thyrotropin [Units/volume] in Serum or Plasma TSH Lab Routine Type 1 diabetes mellitus with diabetic neuropathy (HCC) 1 Occurrences starting 03/12/2025 until 03/13/2026 [facility] Comment on above: 1 Occurrences starting 03/12/2025 until 03/13/2026 End: 11-11-2019 Thyrotropin Qn TSH Routine Type 1 diabetes mellitus with diabetic neuropathy (HCC) 1 Occurrences starting 11/11/2018 until 11/11/2019 [facility] Comment on above: 1 Occurrences starting 11/11/2018 until 11/11/2019 End: 02-28-2019 Thyroxine (T4) free T4, Free Routine Type 1 diabetes mellitus with diabetic neuropathy (HCC) 1 Occurrences starting 02/28/2018 until 02/28/2019 [facility] End: 02-18-2025 Thyroxine (T4) free [Mass/volume] in Serum or Plasma T4, Free Lab Routine Type 1 diabetes mellitus with diabetic neuropathy (HCC) 1 Occurrences starting 02/18/2024 until 02/18/2025 [facility] Comment on above: 1 Occurrences starting 02/18/2024 until 02/18/2025 End: 07-22-2025 Thyroxine (T4) free [Mass/volume] in Serum or Plasma T4, Free Lab Routine Type 1 diabetes mellitus with diabetic neuropathy (HCC) 1 Occurrences starting 07/21/2024 until 07/22/2025 [facility] Comment on above: 1 Occurrences starting 07/21/2024 until 07/22/2025 End: 11-14-2025 Thyroxine (T4) free [Mass/volume] in Serum or Plasma T4, Free Lab Routine Type 1 diabetes mellitus with diabetic neuropathy (HCC) 1 Occurrences starting 11/13/2024 until 11/14/2025 [facility] Comment on above: 1 Occurrences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 Department [address] [place] [address] Progress Note - Hospitalist 04/22/25 0809 MR#: [id number] Acct: [id number] Name: ENOC ARMANDO Rep #:[id number] : 1945 79 From: Malika Fonseca DO PCP: Dr. 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 (04/19/25) Unspecified [...] specified abnormal findings of blood chemistry (04/19/25) intermediate (current) use of insulin (04/19/25) Subjective Subjective [...] (if applicable): CC: ~ Signed [facility] Work Phone: 1(172) 123-617206-21-2025 Progress note Author Malika Fonseca [facility] Note Date/Time April 21, 2025 10:3 6am [facility] Medical Records Department [address] [place] [address] Progress Note - Hospitalist 04/21/25 0808 MR#: [id number] Acct: [id number] Name: ENOC ARMANDO Rep #:[id number] : 1945 79 From: Malika Fonseca DO PCP: Dr. 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 Charges/Coding Visit Charges Inpatient E&M: 83498 Subs Hosp L2 04/21/25 1036 <Electronically signed by Malika Fonseca DO> Cosigner Signature (if applicable): CC: ~ Signed [facility] Work Phone: [phone]) 680-570006-21-2025 Progress note Author Breezy Campbell [facility] Note Date/Time April 21, 2025 10:0 7am [facility] Medical Records Department [address] [place] [address] Progress Note - Cardiology 04/21/25 0957 MR#: [id number] Acct: [id number] Name: ENOC ARMANDO Rep #:[id number] : 1945 79 From: Breezy Campbell MD PCP: Dr. Ryley Jeter MD Status:ADM IN Location: [place] [address] Subjective Subjective Patient resting in recumbent position [...] intact bilaterally Neck Neck Narrative: Noted JVD skilled nursing up the neck at 30 degrees. Resp [...] cardiac care had been added through the [facility] heart group. Will continue with Lasix 40 [...] discharge the patient should follow-up with his [place] boring inspector in 7 to 10 days. (2) ASCVD [...] Lasix daily. Charges/Coding Visit Charges Inpatient E&M: 55658 Subs Hosp L2 04/21/25 1007 <Electronically signed by Breezy Campbell MD> Cosigner Signature (if applicable): CC: ~ Signed [facility] Work Phone: [phone] Consult note Author Breezy [facility] Note Date/Time April 20, 2025 12:5 2pm [facility] Medical Records Department [address] [place] [address] Consultation - Cardiology 04/20/25 1231 MR#: [id number] Acct: [id number] Name: ENOC ARMANDO Rep #:[id number] : 1945 79 From: Breezy Campbell MD PCP: Dr. Ryley Jeter MD Status:ADM IN Location: [facility] [id number] Assessment & Plan Assessment/Plan (1) CHF [...] time of his catheterization October 2024 at [facility] in [place]. Once we have him compensated I recommend he be reevaluated by his primary boring inspector for further long-term management treatment options. Given [...] recommend he be reevaluated by his primary boring inspector for further options ofpossible treatment versus consideration [...] Patient should be reevaluated by his primary boring inspector in 7 to 10 days in [place] after discharge. HPI Consult Data Date of [...] medical therapy. The catheterization was done in [place] at [facility]. The patient denies any anginal type symptoms. He does have a drop in his LV ejection fraction from September 2024 it was 60% April 2025 is down to 40%. This probably represents progression of his coronary artery disease. We have been asked to see the patient to help address titration of his medical therapy. [facility] Medical History Non-STEMI (non-ST elevated myocardial infarction) [...] AdvReac Other Verified 04/03/25 00:16 (Glucocorticoids) (steroids) Rldrmqy-IMB-CwZ Reductase AdvReac Other Verified 04/03/25 00:16 Inhibitor (Cbihdaq-Xzi-Dbr Reductase Inhibitor) Family History Mother COPD (chronic [...] Applicable: No Charges/Coding Visit Charges Inpatient E&M: 63041 Init Hosp L3 Objective Data Vital Signs: [...] Clarity Clear, Urine pH 6.0, Ur Specific Beacon 1.015, Urine Protein 30 H, Urine Glucose [...] (Auto) 93.9 H, Lymph % (Auto) 3.5L, [place] % (Auto) 1.7, Eos % (Auto) 0.0, [...] Clarity Clear, Urine pH 6.0, Ur Specific Beacon 1.015, Urine Protein 30 H, Urine Glucose [...] 93.9 H, Lymph % (Auto) 3.5 L, [place] % (Auto) 1.7, Eos % (Auto) 0.0, [...] Dr. Ryley Jeter MD~ Signed [facility] Work Phone: [phone] Progress note Author Ger Chinchillawelia healtheugenia [facility] Note Date/Time April 20, 2025 11:3 9am [facility] Medical Records Department [address] [place] [address] Progress Note - Hospitalist 04/20/25 1128 MR#: [id number] Acct: [id number] Name: ENOC ARMANDO Rep #:[id number] : 1945 79 From: Ger Roberts DO PCP: Dr. Ryley Jeter MD Status:ADM IN Location: [place] [address] Reason for Visit Reason for Visit: Diagnoses [...] specified abnormal findings of blood chemistry (04/19/25) intermediate (current) use of insulin (04/19/25) Subjective Subjective [...] Clarity Clear, Urine pH 6.0, Ur Specific Beacon 1.015, Urine Protein 30 H, Urine Glucose [...] (Auto) 93.9 H, Lymph % (Auto) 3.5L, [place] % (Auto) 1.7, Eos % (Auto) 0.0, [...] Findings suggestive of airway trapping/asthma. Reading Location: [facility] Venous Doppler Study 04/19/25 04:03 Interpretation [...] 50 minutes Charges/Coding Visit Charges Inpatient E&M: 30331 Subs Hosp L3 04/20/25 1139 <Electronically signed by Ger Roberts DO> Cosigner Signature (if applicable): CC: ~ Signed [facility] Work Phone: 1([phone]) 472-945806-20-2025 Consult note Author Bipin Gonzalez [facility] Note Date/Time April 20, 2025 10:4 2am [facility] Medical Records Department [address] [place] [address] Consultation - Nephrology 04/19/25 1028 MR#: [id number] Acct: [id number] Name: ENOC ARMANDO Rep #:[id number] : 1945 79 From: Bipin arreola [employer] PCP: Dr. Ryley Jeter MD Status:ADM IN Location: [place] [address] Assessment & Plan Assessment/Plan (1) Hyperkalemia: (2) [...] not documented but canister is little over skilled nursing full with urine. Will check bladder scan. [...] home, no dysuria or hematuria. [facility] Medical History Non-STEMI (non-ST elevated myocardial infarction) [...] AdvReac Other Verified 04/03/25 00:16 (Glucocorticoids) (steroids) Jvzyczf-KXH-RnB Reductase AdvReac Other Verified 04/03/25 00:16 Inhibitor (Twitntc-Nye-Pob Reductase Inhibitor) Family History Mother COPD (chronic [...] 82.3 H, Lymph % (Auto) 10.0 L, [place] % (Auto) 5.7, Eos % (Auto) 1.0, [...] Magnesium 2.3 H, [place] [address] H, Procalcitonin 0.10 04/19/25 02:54: POC Glucose 437 H 04/19/25 04:12: WBC 13.5 H, RBC 2.52 L, Hgb 7.5 L, Hct 23.7 L, MCV 94.0, MCH 29.8, MCHC 31.6 L, RDW Std Deviation 46.2 H, RDW Coeff of Humaira 13.4, Plt Count 218, MPV 11.3, Immature Gran % (Auto) 0.600, Neut % (Auto) 94.3 H, Lymph % (Auto) 2.4 L, [place] % (Auto) 2.4, Eos % (Auto) 0.1, [...] 394 H* D, [place] [address] H, Total Protein 5.8 L, Albumin 3.3 [...] interstitial edema. Enlarged cardiac silhouette. Reading Location: [place] [address] 04/19/25 1043 <Electronically signed by Bipin JEFFERS> Cosigner Signature (if applicable): 04/20/25 1042 <Electronically signed by Denisha Thompson MD> CC: Dr. Ryley Jeter MD~ Signed [facility] Work Phone: 1([phone] 208-995606-20-2025 Progress note Author Denisha Thompson [facility] Note Date/Time April 20, 2025 10:4 0am [facility] Medical Records Department [address] [place] [address] Progress Note - Nephrology 04/20/25 1039 MR#: [id number] Acct: [id number] Name: ENOC ARMANDO Rep #:[id number] : 1945 79 From: Denisha tirado MD PCP: Dr. Ryley Jeter MD Status:ADM IN Location: [place] [address] Subjective Subjective Still appears somewhat dyspneic. Objective [...] Clarity Clear, Urine pH 6.0, Ur Specific Beacon 1.015, Urine Protein 30 H, Urine Glucose [...] (Auto) 93.9 H, Lymph % (Auto) 3.5L, [place] % (Auto) 1.7, Eos % (Auto) 0.0, [...] Findings suggestive of airway trapping/asthma. Reading Location: [facility] Venous Doppler Study 04/19/25 04:03 Interpretation [...] (if applicable): CC: ~ Signed [facility] Work Phone: 1([phone]) 168-547906-19-2025 Nuclear medicine Diagnostic study note [facility]06-19-2025 History and physical note Author Nancy Henson [facility] Note Date/Time April 19, 2025 6:44 am [facility] Medical Records Department [address] [place] [address] H&P Exam - Hospitalist 04/19/25 0218 MR#: [id number] Acct: [id number] Name: ENOC ARMANDO Rep #:[id number] : 1945 79 From: Nancy Lee DO [...] catheter placed during that admission along with bhnvn-jr-cxhtpiu anemia with hemoglobin dropping to 6.9 g/dL requiring blood transfusion who re-presents to [facility] ER complaining of shortness of breath and [...] to extend beyond 2 midnights. [facility] Medical History Non-STEMI (non-ST elevated myocardial infarction) [...] AdvReac Other Verified 04/03/25 00:16 (Glucocorticoids) (steroids) Dqygllt-YLX-SvI Reductase AdvReac Other Verified 04/03/25 00:16 Inhibitor (Kikdtll-Wfn-Swp Reductase Inhibitor) Family History Mother COPD (chronic [...] 82.3 H, Lymph % (Auto) 10.0 L, [place] % (Auto) 5.7, Eos % (Auto) 1.0, [...] H, Calcium 8.6, [place] [address] H, Procalcitonin 0.10 Micro: Microbiology 04/19/25 00:25 Mucosa - Nose SARS-CoV-2, Influenza & RSV (PCR) - Final Imaging Radiology Impression Chest X-Ray 04/19/25 01:00 IMPRESSION: Increased mild bilateral pleural effusions. Increased passive atelectatic airspace disease of the lower lobes. Increased pulmonary venous congestion and interstitial edema. Enlarged cardiac silhouette. 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 17. DVT prophylaxis - Patient given renally-dosed enoxaparin 70 mg sq x 1 untilV/Q scan and LE Doppler are confirmed negative for VTE. Total time: Approximately (but not less than) 75 minutes. Charges/Coding Visit Charges Inpatient E&M: 24823 Init Hosp L3 04/19/25 0644 <Electronically signed by Nancy Rizzo DO> Cosigner Signature (if applicable): CC: Dr. Ryley Jeter MD; Dr. Nancy Rizzo DO~ Signed [facility] Work Phone: 1([phone]) 139-736506-19-2025 Discharge summary Author Arnulfo Jose [facility] Note Date/Time April 19, 2025 3:48 am [facility] Medical Records Department [address] [place] [address] Emergency Department Summary 04/19/25 MR#: [id number] Acct: [id number] Name: ENOC ARMANDO Rep #:[id number] : 1945 79 From: Arnulfo Jose DO [...] but denies any formal diagnosis of COPD [facility] Medical History Non-STEMI (non-ST elevated myocardial [...] AdvReac Other Verified 04/03/25 00:16 (Glucocorticoids) (steroids) Ldslreq-VJL-QdB Reductase AdvReac Other Verified 04/03/25 00:16 Inhibitor (Rvimmtn-Eki-Vop Reductase Inhibitor) Family History Mother COPD (chronic [...] 82.3 H Lymph % (Auto) 10.0 L [place] % (Auto) 5.7 Eos % (Auto) 1.0 [...] Magnesium 2.3 [place] [address] H Procalcitonin 0.10 POC Glucose 437 H Radiography Diagnostic Testing: Clinical Impression(s) from Imaging Studies Chest X-Ray 04/19/25 01:00 IMPRESSION: Increased mild bilateral pleural effusions. Increased passive atelectatic airspace disease of the lower lobes. Increased pulmonary venous congestion and interstitial edema. Enlarged cardiac silhouette. Reading Location: [place] [address] Chest x-ray as interpreted by the emergency [...] Chronic anemia Disposition Disposition: Acute Care Hospital [facility] What to do if you have Problems For any increased pain, shortness of breath, bleeding, nausea or vomiting, chestpain, or any unexpected problems, contact your Primary Care Provider. Call [facility] ([phone]) or report to the closest Emergency Room. Call 911 if necessary. 04/19/25 6246 <Electronically signed by Arnulfo Andes DO> Cosigner Signature (if applicable): CC: Dr. Ryley Jeter MD ~ Signed [facility] Work Phone: 1(315) 244-176306-19-2025 Radiology Diagnostic study [facility]06-10-2025 Discharge summary [facility] Medical Records Department [address] [place] [address] Instructions for Home/Discharge Instructions 04/10/25 1527 MR#: [id number] Acct: [id number] Name: ENOC ARMANDO Rep #:[id number] : 1945 79 From: Grace Arnold MD [...] Moore MD; Dr. Smooth Luis MD ~ [facility]06-10-2025 [facility]06-10-2025 Progress note Author Denisha Thompson [facility] Note Date/Time April 10, 2025 12:2 7pm [facility] Medical Records Department [address] [place] [address] Progress Note - Nephrology 04/10/25 1226 MR#: [id number] Acct: [id number] Name: ENOC ARMANDO Rep #:[id number] : 1945 79 From: Denisha tirado MD PCP: Dr. Ryley Jeter MD Status:ADM IN Location: [facility] [id number] Subjective Subjective no new events Objective [...] 82.6 H, Lymph % (Auto) 9.4 L, [place] % (Auto) 7.0, Eos % (Auto) 0.1, [...] stage III (followed by Dr. Albert in [place]), COPD, diabetes mellitus admitted to the hospital [...] (if applicable): CC: ~ Signed [facility] Work Phone: 1(384) 210-916706-10-2025 Progress note [facility] Medical Records Department [address] [place] [address] Progress Note - Nephrology 04/10/25 1226 MR#: [id number] Acct: [id number] Name: ENOC ARMANDO Rep #:[id number] : 1945 79 From: Denisha tirado MD PCP: Dr. Ryley Jeter MD Status:ADM IN Location: [place] [address] Subjective Subjective no new events Objective Data [...] 82.6 H, Lymph % (Auto) 9.4 L, [place] % (Auto) 7.0, Eos % (Auto) 0.1, [...] stage III (followed by Dr. Albert in [place]), COPD, diabetes mellitus admitted to the hospital [...] (if applicable): CC: ~ Signed [facility]-09-2025 Progress note Author Grace Arnold [facility] Note Date/Time April 09, 2025 6:52p m [facility] Medical Records Department [address] [place] [address] Progress Note 04/09/25 1501 MR#: [id number] Acct: [id number] Name: ENOC ARMANDO Rep #:[id number] : 1945 79 From: Grace Arnold MD PCP: Dr. Ryley Jeter MD Status:ADM IN Location: [place] [address] Subjective Subjective Patient seen and examined in the presence of his nurse. He had no complaints andhad an uneventful night. Review of systems is otherwise negative. He is requesting to go home if he is not having dialysis. 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 He [...] 77.6 H, Lymph % (Auto) 14.1 L, [place] % (Auto) 7.4, Eos % (Auto) 0.1, [...] Cardiology was consulted and records requested from [place] showed he had cardiac cath at [place] 2 years ago and had 2 blockages [...] prophylaxis: heparin Charges/Coding Visit Charges Inpatient E&M: 57360 Subs Hosp L2 04/09/25 1852 <Electronically signed by Grace Arnold MD> Grace Arnold MD Cosigner Signature (if applicable): CC: ~ Signed [facility] Work Phone: 1(576) 430-276706-09-2025 Progress note [facility] Medical Records Department [address] [place] [address] Progress Note 04/09/25 1501 MR#: [id number] Acct: [id number] Name: ENOC ARMANDO Rep #:[id number] : 1945 79 From: Grace Arnold MD PCP: Dr. Ryley Jeter MD Status:ADM IN Location: [place] [address] Subjective Subjective Patient seen and examined in the presence of his nurse. He had no complaints andhad an uneventful night. Review of systems is otherwise negative. He is requesting to go home if he is not having dialysis. 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 He [...] 77.6 H, Lymph % (Auto) 14.1 L, Tattnall % (Auto) 7.4, Eos % (Auto) 0.1, [...] Cardiology was consulted and records requested from [facility] showed he had cardiac cath at [facility] 2 years ago and had 2 blockages [...] prophylaxis: heparin Charges/Coding Visit Charges Inpatient E&M: 82808 Subs Hosp L2 04/09/25 3881 Grace Arnold MD Cosigner Signature (if applicable): CC: ~ Signed [facility]06-09-2025 Progress note Author Denisha Thompson [facility] Note Date/Time April 09, 2025 10:39 am [facility] Medical Records Department [address] [place] [address] Progress Note - Nephrology 04/09/25 1037 MR#: [id number] Acct: [id number] Name: ENOC ARMANDO Rep #:[id number] : 1945 79 From: Denisha tirado MD PCP: Dr. Ryley Jeter MD Status:ADM IN Location: [place] [address] Subjective Subjective No new complaints today. Urine [...] 77.6 H, Lymph % (Auto) 14.1 L, Tattnall % (Auto) 7.4, Eos % (Auto) 0.1, [...] stage III (followed by Dr. Albert in [place]), COPD, diabetes mellitus admitted to the hospital [...] (if applicable): CC: ~ Signed [facility] Work Phone: 1(539) 673-588006-09-2025 Progress note [facility] Medical Records Department [address] [place] [address] Progress Note - Nephrology 04/09/25 1037 MR#: [id number] Acct: [id number] Name: ENOC ARMANDO Rep #:[id number] : 1945 79 From: Denisha tirado MD PCP: Dr. Ryley Jeter MD Status:ADM IN Location: [facility] [id number]- 1 Subjective Subjective No new complaints today. [...] 77.6 H, Lymph % (Auto) 14.1 L, Tattnall % (Auto) 7.4, Eos % (Auto) 0.1, [...] stage III (followed by Dr. Albert in [place]), COPD, diabetes mellitus admitted to the hospital [...] (if applicable): CC: ~ Signed [facility]06-09-2025 Progress note Author Dyana Hwang [facility] Note Date/Time April 08, 2025 10:57 pm [facility] Medical Records Department [address] [place] [address] Progress Note - Hospitalist 04/08/252256 MR#: [id number] Acct: [id number] Name: ENOC ARMANDO Rep #:[id number] : 1945 79 From: Dyana Hwang MD PCP: Dr. Ryley Jeter MD Status:ADM IN Location: [place] [address] Hospitalist Note BS elevated, given ISS, repeat check remains elevated, will give an additional 15 u now and recheck 1-2 hours. 04/08/252256 <Electronically signed by Dyana Hwang MD> Cosigner Signature (if applicable): CC: ~ Signed [facility] Work Phone: [phone]) 331-781706-08-2025 Progress note [facility] Medical Records Department [address] [place] [address] Progress Note - Hospitalist 04/08/252256 MR#: [id number] Acct: [id number] Name: ENOC ARMANDO Rep #:[id number] : 1945 79 From: Dyana Hwang MD PCP: Dr. Ryley Jeter MD Status:ADM IN Location: [place] [address] Hospitalist Note BS elevated, given ISS, repeat check remains elevated, will give an additional 15 u now and recheck1-2 hours. 04/08/252256 Cosigner Signature (if applicable): CC: ~ Signed [facility]06-08-2025 Progress note Author Jose Moore [facility] Note Date/Time April 08, 2025 10:37 am [facility] Medical Records Department [address] [place] [address] Progress Note - Hospitalist 04/08/25 1026 MR#: [id number] Acct: [id number] Name: ENOC ARMANDO Rep #:[id number] : 1945 79 From: Jose lui MD PCP: Dr. Ryley Jeter MD Status:ADM IN Location: [place] [address] Subjective Subjective Feels better today than he [...] 88.0 H, Lymph % (Auto) 7.3 L, Tattnall % (Auto) 4.2, Eos % (Auto) 0.0, [...] a heart cath 2 years ago at [facility] with 2 blockages that could not be [...] DVT: SCDs Charges/Coding Visit Charges Inpatient E&M: 21981 Subs Hosp L2 04/08/25 1037 <Electronically signed by Jose Moore MD> Cosigner Signature (if applicable): CC: ~ Signed [facility] Work Phone: [phone] 524-832506-08-2025 Progress note [facility] Medical Records Department [address] [facility] [place] [address] Progress Note - Hospitalist 04/08/25 1026 MR#: [id number] Acct: [id number] Name: ENOC ARMANDO Rep #:[id number] : 1945 79 From: Jose lui MD PCP: Dr. Ryley Jeter MD Status:ADM IN Location: [place] [address] Subjective Subjective Feels better today than he [...] 88.0 H, Lymph % (Auto) 7.3 L, [place] % (Auto) 4.2, Eos % (Auto) 0.0, [...] a heart cath 2 years ago at [facility] with 2 blockages that could not be [...] DVT: SCDs Charges/Coding Visit Charges Inpatient E&M: 30275 Subs Hosp L2 04/08/25 1037 Cosigner Signature (if applicable): CC: ~ Signed [facility]06-07-2025 Progress note Author Nate Forbes [facility] Note Date/Time April 07, 2025 5:18p m [facility] Medical Records Department [address] [place] [address] Progress Note - Risk Assessment Consultant 04/07/251716 MR#: [id number] Acct: [id number] Name: ENOC ARMANDO Rep #:[id number] : 1945 79 From: Nate Forbes MD PCP: Dr. Ryley Jeter MD Status:ADM IN Location: [place] [address] Objective Data Objective Data Vital Signs: Vital [...] mls/hr 04/03/25 05:18 04/06/25 14:45 IV Infused .R10A37N PRN Infusion Saline Flush Sodium Chloride 250 mls @ 15 mls/hr 04/03/25 05:18 IV .X60T30H PRN Additional IVPB Infusion Dextrose 250 mls [...] Hcl 0.4 Mg Capsule PO 0.4 mg Ayla@1733 DIDI Administration Lab / Micro Data 04/07/25 [...] 79.0 H, Lymph % (Auto) 12.6 L, Tattnall % (Auto) 8.0, Eos % (Auto) 0.1, [...] per nephrology yesterday. Cont recommendations as per pulmonary/action finisher note yesterday. We will monitor peripherally over the weekend, but please call us any time if questions or if clinical worsening. Nate Forbes MD 04/07/251717 <Electronically signed by Nate Forbes MD> Cosigner Signature (if applicable): CC: ~ Signed [facility] Work Phone: [phone]) 971-633006-07-2025 Progress note [facility] Medical Records Department [address] [place] [address] Progress Note - Risk Assessment Consultant 04/07/251716 MR#: [id number] Acct: [id number] Name: ENOC ARMANDO Rep #:[id number] : 1945 79 From: Nate Forbes MD PCP: Dr. Ryley Jeter MD Status:ADM IN Location: [place] [address] Objective Data Objective Data Vital Signs: Vital [...] 04/07/25 16:01 Intake Total 5545.73 Output Total 7813 Balance -1344.27 Current Meds Ordered / Administered: [...] mls/hr 04/03/25 05:18 04/06/25 14:45 IV Infused .E80Z86C PRN Infusion Saline Flush Sodium Chloride 250 mls @ 15 mls/hr 04/03/25 05:18 IV .O95U09I PRN Additional IVPB Infusion Dextrose 250 mls [...] Hcl 0.4 Mg Capsule PO 0.4 mg Ayla@6454 DIDI Administration Lab / Micro Data 04/07/25 [...] 79.0 H, Lymph % (Auto) 12.6 L, [place] % (Auto) 8.0, Eos % (Auto) 0.1, [...] per nephrology yesterday. Cont recommendations as per pulmonary/action finisher note yesterday. We will monitor peripherally over the weekend, but please call us any time if questions or if clinical worsening. Nate Forbes MD 04/07/25 2802 Cosigner Signature (if applicable): CC: ~ Signed [facility]06-07-2025 Progress note Author Jose Moore [facility] Note Date/Time April 07, 2025 3:15p m [facility] Medical Records Department [address] [place] [address] Progress Note - Hospitalist 04/07/25 1450 MR#: [id number] Acct: [id number] Name: ENOC ARMANDO Rep #:[id number] : 1945 79 From: Jose lui MD PCP: Dr. Ryley Jeter MD Status:ADM IN Location: [place] [address] Subjective Subjective Doing well, no issues overnight. [...] 79.0 H, Lymph % (Auto) 12.6 L, Tatt[place] % (Auto) 8.0, Eos % (Auto) 0.1, [...] a cardiac cath 2 years ago at [facility] and was told he had 2 blockages which were not amenable to revascularization. Records requested from [facility]. Further management as per cardiology. 04/06/2025: Breath [...] as above. * Further records requested from [facility] as above * cardiology on board 04/06/2025: Edmond to be due to demand ischemia though [...] DVT: SCDs Charges/Coding Visit Charges Inpatient E&M: 75829 Subs Hosp L2 04/07/25 1515 <Electronically signed by Jose Moore MD> Cosigner Signature (if applicable): CC: ~ Signed [facility] Work Phone: [phone] 332-972406-07-2025 Progress note [facility] Medical Records Department [address] [place] [address] Progress Note - Hospitalist 04/07/25 1450 MR#: [id number] Acct: [id number] Name: ENOC ARMANDO Rep #:[id number] : 1945 79 From: Jose lui MD PCP: Dr. Ryley Jeter MD Status:ADM IN Location: [place] [address] Subjective Subjective Doing well, no issues overnight. [...] 79.0 H, Lymph % (Auto) 12.6 L, [place] % (Auto) 8.0, Eos % (Auto) 0.1, [...] a cardiac cath 2 years ago at [facility] and was told he had 2 blockages which were not amenable to revascularization. Records requested from [facility]. Further management as per cardiology. 04/06/2025: Breath [...] as above. * Further records requested from [facility] as above * cardiology on board 04/06/2025: Edmond to be due to demand ischemia though [...] DVT: SCDs Charges/Coding Visit Charges Inpatient E&M: 29988 Subs Hosp L2 04/07/25 1515 Cosigner Signature (if applicable): CC: ~ Signed [facility]06-06-2025 Progress note Author Jose Moore [facility] Note Date/Time April 06, 2025 6:25p m [facility] Medical Records Department [address] [place] [address] Progress Note - Hospitalist 04/06/25 1818 MR#: [id number] Acct: [id number] Name: ENOC ARMANDO Rep #:[id number] : 1945 79 From: Jose lui MD PCP: Dr. Ryley Jeter MD Status:ADM IN [facility] Subjective Subjective Doing well, no [...] (Auto) 83.3 H, Lymph % (Auto) 9.1L, [place] % (Auto) 7.0, Eos % (Auto) 0.0, [...] Lung findings are grossly unchanged. Reading Location: [facility] Rhythm Strip Rhythm Strip: Sinus Rhythm [...] a cardiac cath 2 years ago at [facility] and was told he had 2 blockages which were not amenable to revascularization. Records requested from [facility]. Further management as per cardiology. 04/06/2025: Breath sounds are improving and he is maintaining nasal cannula after dialysis #Elevated cardiac enzymes: * initial troponin was 58, and only peaked at 76. 2D echo as above. * Further records requested from [facility] as above * cardiology on board 04/06/2025: Edmond to be due to demand ischemia though [...] DVT: Heparin Charges/Coding Visit Charges Inpatient E&M: 99373 Subs Hosp L2 04/06/25 1825 <Electronically signed by Jose Moore MD> Cosigner Signature (if applicable): CC: ~ Signed [facility] Work Phone: 1(562) 230-885306-06-2025 Progress note [facility] Medical Records Department [address] [place] [address] Progress Note - Hospitalist 04/06/25 1818 MR#: [id number] Acct: [id number] Name: ENOC ARMANDO Rep #:[id number] : 1945 79 From: Jose lui MD PCP: Dr. Ryley Jeter MD Status:ADM IN Location: [place] [address] Subjective Subjective Doing well, no issues overnight [...] (Auto) 83.3 H, Lymph % (Auto) 9.1L, [place] % (Auto) 7.0, Eos % (Auto) 0.0, [...] Lung findings are grossly unchanged. Reading Location: [facility] Rhythm Strip Rhythm Strip: Sinus Rhythm [...] a cardiac cath 2 years ago at [facility] and was told he had 2 blockages which were not amenable to revascularization. Records requested from [facility]. Further management as per cardiology. 04/06/2025: Breath sounds are improving and he is maintaining nasal cannula after dialysis #Elevated cardiac enzymes: * initial troponin was 58, and only peaked at 76. 2D echo as above. * Further records requested from [facility] as above * cardiology on board 04/06/2025: Edmond to be due to demand ischemia though [...] DVT: Heparin Charges/Coding Visit Charges Inpatient E&M: 12780 Subs Hosp L2 04/06/25 1825 Cosigner Signature (if applicable): CC: ~ Signed [facility]06-06-2025 Progress note Author Bipin Gonzalez [facility] Note Date/Time April 06, 2025 4:18p m [facility] Medical Records Department [address] [place] [address] Progress Note - Nephrology 04/06/25 1117 MR#: [id number] Acct: [id number] Name: ENOC ARMANDO Rep #:[id number] : 1945 79 From: Bipin JEFFERS PCP: Dr. Ryley Jeter MD Status:ADM IN Location: [place] [address] Documented by User: AURY Davison 04/06/25 11:24 [...] Sl. Cloudy, Urine pH 5.0, Ur Specific Beacon 1.020, Urine Protein 100 H, Urine Glucose [...] (Auto) 83.3 H, Lymph % (Auto) 9.1L, [place] % (Auto) 7.0, Eos % (Auto) 0.0, [...] Lung findings are grossly unchanged. Reading Location: [facility] Rhythm Strip Rhythm Strip: Sinus Rhythm [...] stage III (followed by Dr. Albert in [place]), COPD, diabetes mellitus admitted to the hospital [...] stage III (followed by Dr. Albert in [place]), COPD, diabetes mellitus admitted to the hospital [...] and plan reviewed with Dr. Thompson. 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 BAKARI is typically short lived. hopefully will recover soon. HD today. will reevaluate tomorrow 04/06/25 1124 <Electronically signed by Bipin JEFFERS> Cosigner Signature (if applicable): 04/06/25 1618 <Electronically signed by Denisha Thompson MD> CC: ~ Signed [facility] Work Phone: 1(593) [phone] Progress note [facility] Medical Records Department [address] [place] [address] Progress Note - Nephrology 04/06/25 1117 MR#: [id number] Acct: [id number] Name: ENOC ARMANDO Rep #:[id number] : 1945 79 From: Bipin JEFFERS PCP: Dr. Ryley Jeter MD Status:ADM IN Location: [place] [address] Documented by User: AURY Davison 04/06/25 11:24 [...] Sl. Cloudy, Urine pH 5.0, Ur Specific Beacon 1.020, Urine Protein 100 H, Urine Glucose [...] (Auto) 83.3 H, Lymph % (Auto) 9.1L, [place] % (Auto) 7.0, Eos % (Auto) 0.0, [...] Lung findings are grossly unchanged. Reading Location: [facility] Rhythm Strip Rhythm Strip: Sinus Rhythm [...] stage III (followed by Dr. Albert in [place]), COPD, diabetes mellitus admitted to the hospital [...] stage III (followed by Dr. Albert in [place]), COPD, diabetes mellitus admitted to the hospital [...] and plan reviewed with Dr. Thompson. jr FILLER SPREADER. BAKARI is typically short lived. hopefully will recover soon. HD today. will reevaluate tomorrow 04/06/25 1124 Cosigner Signature (if applicable): 04/06/25 1618 CC: ~ Signed [facility]06-06-2025 Progress note Author Smooth Luis [facility] Note Date/Time April 06, 2025 11:24 am [facility] Medical Records Department [address] [place] [address] Progress Note - Surgery 04/06/25 1123 MR#: [id number] Acct: [id number] Name: ENOC ARMANDO Rep #:[id number] : 1945 79 From: Smooth Luis MD PCP: Dr. Ryley Jeter MD Status:ADM IN Location: [place] [address]- 1 Subjective Subjective Patient seen on rounds [...] Sl. Cloudy, Urine pH 5.0, Ur Specific Beacon 1.020, Urine Protein 100 H, Urine Glucose [...] (Auto) 83.3 H, Lymph % (Auto) 9.1L, [place] % (Auto) 7.0, Eos % (Auto) 0.0, [...] Lung findings are grossly unchanged. Reading Location: [facility] Rhythm Strip Rhythm Strip: Sinus Rhythm [...] (if applicable): CC: ~ Signed [facility] Work Phone: 1(578) 667-539306-06-2025 Progress note Author Landry Fagan [facility] Note Date/Time April 06, 2025 9:42a m [facility] Medical Records Department [address] [place] [address] Progress Note - Risk Assessment Consultant 04/06/25 0938 MR#: [id number] Acct: [id number] Name: ENOC ARMANDO Rep #:[id number] : 1945 79 From: Landry Fagan DO PCP: Dr. Ryley Jeter MD Status:ADM IN Location: [place] [address] Assessment & Plan Assessment/Plan (1) Acute hypoxic [...] without intubation This note was generated with Tickade dictation software. It may contain incorrectwords, spelling, [...] Sl. Cloudy, Urine pH 5.0, Ur Specific Beacon 1.020, Urine Protein 100 H, Urine Glucose [...] (Auto) 83.3 H, Lymph % (Auto) 9.1L, [place] % (Auto) 7.0, Eos % (Auto) 0.0, [...] Lung findings are grossly unchanged. Reading Location: [facility] Rhythm Strip Rhythm Strip: Sinus Rhythm [...] affect normal Charges/Coding Visit Charges Inpatient E&M: 61359 Subs Hosp L2 04/06/25 0942 <Electronically signed by Landry Fagan DO> Cosigner Signature (if applicable): CC: ~ Signed [facility] Work Phone: 1(326) 517-625306-06-2025 Progress note [facility] Medical Records Department [address] [place] [address] Progress Note - Surgery 04/06/25 1123 MR#: [id number] Acct: [id number] Name: ENOC ARMANDO Rep #:[id number] : 1945 79 From: Smooth Luis MD PCP: Dr. Ryley Jeter MD Status:ADM IN Location: [place] [address]- 1 Subjective Subjective Patient seen on rounds [...] Sl. Cloudy, Urine pH 5.0, Ur Specific Beacon 1.020, Urine Protein 100 H, Urine Glucose [...] (Auto) 83.3 H, Lymph % (Auto) 9.1L, [place] % (Auto) 7.0, Eos % (Auto) 0.0, [...] Lung findings are grossly unchanged. Reading Location: [facility] Rhythm Strip Rhythm Strip: Sinus Rhythm [...] (if applicable): CC: ~ Signed [facility]06-06-2025 Progress note [facility] Medical Records Department [address] [place] [address] Progress Note - Risk Assessment Consultant 04/06/25 0938 MR#: [id number] Acct: [id number] Name: ENOC ARMANDO Rep #:[id number] : 1945 79 From: Landry Fagan DO PCP: Dr. Ryley Jeter MD Status:ADM IN Location: [place] [address] Assessment & Plan Assessment/Plan (1) Acute hypoxic [...] without intubation This note was generated with Tela Solutionsation software. It may contain incorrectwords, spelling, and [...] Sl. Cloudy, Urine pH 5.0, Ur Specific Beacon 1.020, Urine Protein 100 H, Urine Glucose [...] (Auto) 83.3 H, Lymph % (Auto) 9.1L, T[place] % (Auto) 7.0, Eos % (Auto) 0.0, [...] Lung findings are grossly unchanged. Reading Location: [facility] Rhythm Strip Rhythm Strip: Sinus Rhythm [...] affect normal Charges/Coding Visit Charges Inpatient E&M: 23071 Subs Hosp L2 04/06/25 0942 Cosigner Signature (if applicable): CC: ~ Signed [facility]06-05-2025 Consult note Author Smooth Luis [facility] Note Date/Time April 05, 2025 6:10p m [facility] Medical Records Department [address] [place] [address] Consultation - Surgical 04/05/25 1806 MR#: [id number] Acct: [id number] Name: ENOC ARMANDO Rep #:[id number] : 1945 79 From: Smooth Luis MD PCP: Dr. Ryley Jeter MD Status:ADM IN Location: [address] Assessment & Plan Assessment/Plan (1) CKD (chronic kidney disease), stage III: QUALIFIERS: Chronic kidney disease stage 3 subtype: stage 3b (GFR 30-44) Qualified Code(s): N18.32 - Chronic kidney disease, stage 3b PLAN: Plan Patient is an 79-year-old male with worsening renal function. Beveller Operator is recommending temporary dialysis. Dialysis catheter [...] to the emergency department at [facility] several days ago with history of worsening [...] insert the temporary dialysis catheter. [facility] Medical History Chronic anemia Tobacco use COPD [...] AdvReac Other Verified 04/03/25 00:16 (Glucocorticoids) (steroids) Lznimng-WYR-OqB Reductase AdvReac Other Verified 04/03/25 00:16 Inhibitor (Lltmfuq-Bgs-Goz Reductase Inhibitor) Family History Mother COPD (chronic [...] 85.5 H, Lymph % (Auto) 5.7 L, [place] % (Auto) 7.7, Eos % (Auto) 0.0, [...] Sl. Cloudy, Urine pH 5.0, Ur Specific Beacon 1.020, Urine Protein 100 H, Urine Glucose [...] to prior. Correlate with PSA. Reading Location: [id number] Charges/Coding Visit Charges Inpatient E&M: 21099 Init Hosp L3 04/05/25 1810 <Electronically signed by Smooth Luis MD> Cosigner Signature (if applicable): CC: Dr. Ryley Jeter MD~ Signed [facility] Work Phone: 1(645) 357-214806-05-2025 Radiology Diagnostic study note [facility] Imaging Services [address] [place] [address] CXR for Line Placement MR#: [id number] Acct: [id number] Name: ENOC ARMANDO Rep #: [id number] : 1945 M 79 From: Chely Batista MD PCP: Dr. Ryley Jeter MD Status: ADM IN Study:CXR for Line Placement Date of Exam: 04/05/25 Exam# [id number] Ordering Dr: St dany Luis MD PROCEDURE: CXR FOR LINE PLACEMENT 04/05/2025 REASON FOR EXAM: TEMP HD CATH INSERTION ON RIGHT TECHNIQUE: Single frontal view of the chest COMPARISON: 04/03/2025 RAD/CXR for Line Placement IMPRESSION: Interval insertion of right IJ line with tip at SVC, likely in appropriate position. Lung findings are grossly unchanged. Reading Location: [facility] CC: Dr. Ryley Jeter MD; Dr. Smooth Luis MD ~ Photographic Engineer: Signed [facility]06-05-2025 Progress note Author [facility] Note Date/Time April 05, 2025 5:19p m [facility] Medical Records Department [address] [place] [address] Progress Note 04/05/25 1212 MR#: [id number] Acct: [id number] Name: ENOC ARMANDO Rep #:[id number] : 1945 79 From: Grace Arnold MD PCP: Dr. Ryley Jeter MD Status:ADM IN Location: [place] [address] Subjective Subjective Patient seen and examined. He [...] 85.5 H, Lymph % (Auto) 5.7 L, [place] % (Auto) 7.7, Eos % (Auto) 0.0, [...] to prior. Correlate with PSA. Reading Location: [id number] Rhythm Strip Rhythm Strip: Sinus Rhythm Rate: [...] a cardiac cath 2 years ago at [facility] and was told he had 2 blockages which were not amenable to revascularization. Records requested from [facility]. Further management as per cardiology. * #Elevated cardiac enzymes: * initial troponin was 58, and only peaked at 76. 2D echo as above. * Further records requested from [facility] as above * cardiology on board * [...] heparin sq. Charges/Coding Visit Charges Inpatient E&M: 35588 Subs Hosp L3 04/05/25 1719 <Electronically signed by Grace Arnold MD> Grace Arnold MD Cosigner Signature (if applicable): CC: ~ Signed [facility] Work Phone: 1(275) 818-231206-05-2025 Procedure note [facility] Medical Records Department [address] [place] [address] Operative Report 04/05/25 1810 MR#: [id number] Acct: [id number] Name: ENOC ARMANDO Rep #:[id number] : 1945 79 From: Smooth Luis MD PCP: Dr. Ryley Jeter MD Status:ADM IN [facility] Problems Associated Problem List Diagnoses (1) CKD (chronic kidney disease), stage III: Procedures Cardiovascular CF Procedures 33xxx-39xxx: [id number] Insert tunneled cv cath Operative Report (Standard) Operative Information Date of Procedure: 04/05/25 Pre-Operative Diagnosis: Renal failure Post-Operative Diagnosis: Renal failure Surgery/Procedure Performed: Right internal jugular temporary dialysis catheter insertion with ultrasound top icer: No Type of Anesthesia: Local Procedure Start Time: 17:00 Procedure Stop Time: 17:20 Select all DRAINS/GRAFTS/IMPLANTS that apply: Prosthetic device Prosthetic device details: 12 Malagasy temporary dialysis catheter Estimated Blood Loss: 15 [...] Dr. Nina Lee MD~ Signed [facility]06-05-2025 Consult note [facility] Medical Records Department [address] [place] [address] Consultation - Surgical 04/05/25 1806 MR#: [id number] Acct: [id number] Name: ENOC ARMANDO Rep #:[id number] : 1945 79 From: Smooth Luis MD PCP: Dr. Ryley Jeter MD Status:ADM IN Location: [place] [address] Assessment & Plan Assessment/Plan (1) CKD (chronic kidney disease), stage III: QUALIFIERS: Chronic kidney disease stage 3 subtype: stage 3b (GFR 30-44) Qualified Code(s): N18.32 - Chronic kidney disease, stage 3b PLAN: Plan Patient is an 79-year-old male with worsening renal function. Beveller Operator is recommending temporary dialysis. Dialysis catheter was placed in the right internal jugular vein this evening in anticipation for dialysis in the morning. Patient tolerated this procedure well. Please see separate procedure note for details of the catheter placement HPI Consult Data Date of Consult: 04/05/25 HPI Narrative Reason for Consultation: Temporary dialysis catheter insertion HPI Narrative: EONC ARMANDO, is a 79 M who presented to the emergency department at [facility] several days ago with history of worsening [...] insert the temporary dialysis catheter. [facility] Medical History Chronic anemia Tobacco use COPD [...] AdvReac Other Verified 04/03/25 00:16 (Glucocorticoids) (steroids) Dhozmyu-XOP-BdK Reductase AdvReac Other Verified 04/03/25 00:16 Inhibitor (Rssyhzx-Sss-Lbr Reductase Inhibitor) Family History Mother COPD (chronic [...] 85.5 H, Lymph % (Auto) 5.7 L, [place] % (Auto) 7.7, Eos % (Auto) 0.0, [...] Sl. Cloudy, Urine pH 5.0, Ur Specific Beacon 1.020, Urine Protein 100 H, Urine Glucose [...] to prior. Correlate with PSA. Reading Location: [id number]-TYZPMHIQE-E Charges/Coding Visit Charges Inpatient E&M: 93428 Init Hosp L3 04/05/25 1810 Cosigner Signature (if applicable): CC: Dr. Ryley Jeter MD~ Signed [facility]06-05-2025 Progress note Author Denisha Thompson [facility] Note Date/Time April 05, 2025 3:20p m [facility] Medical Records Department [address] [place] [address] Progress Note - Nephrology 04/05/25 1518 MR#: [id number] Acct: [id number] Name: ENOC ARMANDO Rep #:[id number] : 1945 79 From: Denisha tirado MD PCP: Dr. Ryley Jeter MD Status:ADM IN Location: [facility] [id number]- 1 Subjective Subjective he is on bipap [...] 85.5 H, Lymph % (Auto) 5.7 L, [place] % (Auto) 7.7, Eos % (Auto) 0.0, [...] Sl. Cloudy, Urine pH 5.0, Ur Specific Beacon 1.020, Urine Protein 100 H, Urine Glucose [...] to prior. Correlate with PSA. Reading Location: [id number]-AOYAQJKAC-L Rhythm Strip Rhythm Strip: Sinus Rhythm Rate: [...] stage III (followed by Dr. Albert in [place]), COPD, diabetes mellitus admitted to the hospital [...] (if applicable): CC: ~ Signed [facility] Work Phone: 1(833) 956-670506-05-2025 Progress note [facility] Medical Records Department [address] [place] [address] Progress Note 04/05/25 1212 MR#: [id number] Acct: [id number] Name: ARMANDOENOC KWONG Ariela Rep #:[id number] : 1945 79 From: Grace Arnold MD PCP: Dr. Ryley Jeter MD Status:ADM IN Location: [place] [address]- 1 Subjective Subjective Patient seen and examined. [...] 85.5 H, Lymph % (Auto) 5.7 L, [place] % (Auto) 7.7, Eos % (Auto) 0.0, [...] to prior. Correlate with PSA. Reading Location: [id number]-E Rhythm Strip Rhythm Strip: Sinus Rhythm Rate: [...] a cardiac cath 2 years ago at [facility] and was told he had 2 blockages which were not amenable to revascularization. Records requested from [facility]. Further management as per cardiology. * #Elevated cardiac enzymes: * initial troponin was 58, and only peaked at 76. 2D echo as above. * Further records requested from [facility] as above * cardiology on board * [...] heparin sq. Charges/Coding Visit Charges Inpatient E&M: 81632 Subs Hosp 04/05/25 0525 Grace Arnold MD Cosigner Signature (if applicable): CC: ~ Signed [facility]06-05-2025 Progress note Author Barbie Martin [facility] Note Date/Time April 05, 2025 3:10p m [facility] Medical Records Department [address] [place] [address] Progress Note - Cardiology 04/05/25 1459 MR#: [id number] Acct: [id number] Name: ENOC ARMANDO Rep #:[id number] : 1945 79 From: Barbie gibson MD PCP: Dr. Ryley Jeter MD Status:ADM IN Location: [place] [address]- Subjective Subjective Patient denies any chest pain. [...] 85.5 H, Lymph % (Auto) 5.7 L, [place] % (Auto) 7.7, Eos % (Auto) 0.0, [...] Sl. Cloudy, Urine pH 5.0, Ur Specific Beacon 1.020, Urine Protein 100 H, Urine Glucose [...] 85.5 H, Lymph % (Auto) 5.7 L, [place] % (Auto) 7.7, Eos % (Auto) 0.0, [...] Sl. Cloudy, Urine pH 5.0, Ur Specific Beacon 1.020, Urine Protein 100 H, Urine Glucose [...] to prior. Correlate with PSA. Reading Location: [facility] Physical Exam Const alert HEENT [...] catheterization within the last 2 years at [facility]. He also had 2 blockages that were [...] be willing to see him in the [place] [facility] in 7to 10 days after discharge. Charges/Coding Visit Charges Inpatient E&M: 87751 Subs Hosp L2 04/05/25 1510 <Electronically signed by Barbie Martin MD> Cosigner Signature (if applicable): CC: ~ Signed [facility] Work Phone: [phone]) [phone] Progress note [facility] Medical Records Department [address] [place] [address] Progress Note - Nephrology 04/05/25 1518 MR#: [id number] Acct: [id number] Name: ENOC ARMANDO Rep #:[id number] : 1945 79 From: Denisha tirado MD PCP: Dr. Ryley Jeter MD Status:ADM IN Location: [place] [address] Subjective Subjective he is on bipap Objective [...] 85.5 H, Lymph % (Auto) 5.7 L, [place] % (Auto) 7.7, Eos % (Auto) 0.0, [...] Sl. Cloudy, Urine pH 5.0, Ur Specific Beacon 1.020, Urine Protein 100 H, Urine Glucose [...] to prior. Correlate with PSA. Reading Location: [facility] Rhythm Strip Rhythm Strip: Sinus [...] stage III (followed by Dr. Albert in [place]), COPD, diabetes mellitus admitted to the hospital [...] (if applicable): CC: ~ Signed [facility]06-05-2025 Progress note [facility] Medical Records Department [address] [place] [address] Progress Note - Cardiology 04/05/25 1459 MR#: [id number] Acct: [id number] Name: ENOC ARMANDO Rep #:[id number] : 1945 79 From: Barbie gibson MD PCP: Dr. Ryely Jeter MD Status:ADM IN Location: [place] [address] Subjective Subjective Patient denies any chest pain. [...] 85.5 H, Lymph % (Auto) 5.7 L, [place] % (Auto) 7.7, Eos % (Auto) 0.0, [...] Sl. Cloudy, Urine pH 5.0, Ur Specific Beacon 1.020, Urine Protein 100 H, Urine Glucose [...] 85.5 H, Lymph % (Auto) 5.7 L, [place] % (Auto) 7.7, Eos % (Auto) 0.0, [...] Sl. Cloudy, Urine pH 5.0, Ur Specific Beacon 1.020, Urine Protein 100 H, Urine Glucose [...] to prior. Correlate with PSA. Reading Location: YQK-SYDYTZHDJ-L Physical Exam Const alert HEENT normocephalic Eyes [...] catheterization within the last 2 years at [facility].He also had 2 blockages that were not [...] be willing to see him in the [place] [facility] in 7to 10 days after discharge. Charges/Coding Visit Charges Inpatient E&M: 44338 Subs Hosp L2 04/05/25 1510 Cosigner Signature (if applicable): CC: ~ Signed [facility]06-05-2025 Consult note Author Bipin Gonzalez [facility] Note Date/Time April 05, 2025 10:03 am [facility] Medical Records Department [address] [place] [address] Consultation - Nephrology 04/04/25 1518 MR#: [id number] Acct: [id number] Name: ENOC ARMANDO Rep #:[id number] : 1945 79 From: Bipin arreola [employer]RECTIONAL LIEUTENANT-C PCP: Dr. Ryley Jeter MD Status:ADM IN Location: [place] [address] Assessment & Plan Assessment/Plan (1) MADONNA (acute kidney injury): (2) CKD (chronic kidney disease), stage III: QUALIFIERS: Chronic kidney disease stage 3 subtype: stage 3b (GFR 30-44) Qualified Code(s): N18.32 - Chronic kidney disease, stage 3b (3) Acute hypoxic respiratory failure: PLAN: Plan This is an 79-year-old male with past medical history significant for hypertension, CKD stage III (followed by Dr. Albert in [place]), COPD, diabetes mellitus admitted to the hospital [...] has been following with Dr. 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 Baseline creatinine has been around 1.8 mg/dL range. Patient denies any new medications before hospitalization. Denies any recent nausea, vomiting or diarrhea. Denies any urinary habitus changes. No NSAIDs. [facility] Medical History (Updated 04/04/25 @ 15:23 by [...] AdvReac Other Verified 04/03/25 00:16 (Glucocorticoids) (steroids) Mdhqdrq-EHA-VfC Reductase AdvReac Other Verified 04/03/25 00:16 Inhibitor (Pwmptmf-Yhz-Xyf Reductase Inhibitor) Family History Mother COPD (chronic [...] (Auto) 90.4 H, Lymph % (Auto) 4.9L, [place] % (Auto) 4.0, Eos % (Auto) 0.0, [...] Dr. Ryley Jeter MD~ Signed [facility] Work Phone: 1(331) [phone] Progress note Author Landry Fagan [facility] Note Date/Time April 05, 2025 9:30a m [facility] Medical Records Department [address] [place] [address] Progress Note - Risk Assessment Consultant 04/05/25818 MR#: [id number] Acct: [id number] Name: ENOC ARMANDO Rep #:[id number] : 1945 79 From: Landry Fagan DO PCP: Dr. Ryley Jeter MD Status:ADM IN Location: [place] [address] Assessment & Plan Assessment/Plan (1) Acute hypoxic [...] without intubation This note was generated with Tickade dictation software. It may contain incorrectwords, spelling, [...] 85.5 H, Lymph % (Auto) 5.7 L, [place] % (Auto) 7.7, Eos % (Auto) 0.0, [...] to prior. Correlate with PSA. Reading Location: [facility] Rhythm Strip Rhythm Strip: Sinus [...] affect normal Charges/Coding Visit Charges Inpatient E&M: 55537 Subs Hosp L2 04/05/25 0930 <Electronically signed by Landry Fagan DO> Cosigner Signature (if applicable): CC: ~ Signed [facility] Work Phone: [phone] 174-324406-05-2025 Consult note [facility] Medical Records Department [address] [place] [address] Consultation - Nephrology 04/04/25 1518 MR#: [id number] Acct: [id number] Name: ENOC ARMANDO Rep #:[id number] : 1945 79 From: Bipin arreola CORRECTIONAL LIEUTENANT-C PCP: Dr. Ryley Jeter MD Status:ADM IN Location: [place] [address] Assessment & Plan Assessment/Plan (1) MADONNA (acute kidney injury): (2) CKD (chronic kidney disease), stage III: QUALIFIERS: Chronic kidney disease stage 3 subtype: stage 3b (GFR 30-44) Qualified Code(s): N18.32 - Chronic kidney disease, stage 3b (3) Acute hypoxic respiratory failure: PLAN: Plan This is an 79-year-old male with past medical history significant for hypertension, CKD stage III (followed by Dr. Albert in [place]), COPD, diabetes mellitus admitted to the hospital [...] has been following with Dr. 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 Baseline creatinine has been around 1.8 mg/dL range. Patient denies any new medications before hospitalization. Denies any recent nausea, vomiting or diarrhea. Denies any urinary habitus changes. No NSAIDs. [facility] Medical History (Updated 04/04/25 @ 15:23 by [...] AdvReac Other Verified 04/03/25 00:16 (Glucocorticoids) (steroids) Tywazds-VBW-UwO Reductase AdvReac Other Verified 04/03/25 00:16 Inhibitor (Bghnqph-Gym-Bep Reductase Inhibitor) Family History Mother COPD (chronic [...] (Auto) 90.4 H, Lymph % (Auto) 4.9L, [place] % (Auto) 4.0, Eos % (Auto) 0.0, [...] Dr. Ryley Jeter MD~ Signed [facility]06-05-2025 Progress note [facility] Medical Records Department [address] [place] [address] Progress Note - Risk Assessment Consultant 04/05/25 0819 MR#: [id number] Acct: [id number] Name: ENOC ARMANDO Rep #:[id number] : 1945 79 From: Landry Fagan DO PCP: Dr. Ryley Jeter MD Status:ADM IN Location: [place] [id number]- [id number] Assessment & Plan Assessment/Plan (1) Acute [...] without intubation This note was generated with Tickade dictation software. It may contain incorrectwords, spelling, [...] 85.5 H, Lymph % (Auto) 5.7 L, [place] % (Auto) 7.7, Eos % (Auto) 0.0, [...] to prior. Correlate with PSA. Reading Location: [facility] Rhythm Strip Rhythm Strip: Sinus [...] affect normal Charges/Coding Visit Charges Inpatient E&M: 25324 Subs Hosp L2 04/05/25 2681 Cosigner Signature (if applicable): CC: ~ Signed [facility] [id number] Radiology Diagnostic study note [facility] Imaging Services [address] [place], [place] [address] Kidney and Bladder MR#: [id number] Acct: [id number] Name: ENOC ARMANDO Rep #: [id number] : 1945 M 79 From: Demetria Mahoney MD PCP: Dr. Ryley Jeter MD Status: ADM IN Study:Kidney and Bladder Date of Exam: 0 04/04/25 Exam# [id number] Ordering Dr: Kesha Arnold MD PROCEDURE: KIDNEY [...] to prior. Correlate with PSA. Reading Location: [facility] CC: Dr. Ryley Jeter MD; Dr. Grace Arnold MD ~ Photographic Engineer: Signed [facility]06-04-2025 Progress note Author Grace Arnold [facility] Note Date/Time April 04, 2025 5:42p m [facility] Medical Records Department [address] [place] [address] Progress Note 04/04/25 1121 MR#: [id number] Acct: [id number] Name: ENOC ARMANDO Rep #:[id number] : 1945 79 From: Grace Arnold MD [...] (Auto) 90.4 H, Lymph % (Auto) 4.9L, [place] % (Auto) 4.0, Eos % (Auto) 0.0, [...] a cardiac cath 2 years ago at [facility] and was told he had 2 blockages which were not amenable to revascularization. Records requested from [facility]. Further management as per cardiology. * #Elevated cardiac enzymes: * initial troponin was 58, and only peaked at 76. 2D echo as above. * Further records requested from [facility] as above * cardiology on board * [...] heparin sq. Charges/Coding Visit Charges Inpatient E&M: 15791 Subs Hosp L3 04/04/25 1742 <Electronically signed by Grace Arnold MD> Grace Arnold MD Cosigner Signature (if applicable): CC: ~ Signed [facility] Work Phone: 1(676) 285-290806-04-2025 Progress note [facility] Medical Records Department [address] [place] [address] Progress Note 04/04/25 1121 MR#: [id number] Acct: [id number] Name: ENOC ARMANDO Rep #:[id number] : 1945 79 From: Grace Arnold MD [...] (Auto) 90.4 H, Lymph % (Auto) 4.9L, [place] % (Auto) 4.0, Eos % (Auto) 0.0, [...] a cardiac cath 2 years ago at [facility] and was toldhe had 2 blockages which were not amenable to revascularization. Records requested from [facility]. Further management as per cardiology. * #Elevated cardiac enzymes: * initial troponin was 58, and only peaked at 76. 2D echo as above. * Further records requested from [facility] as above * cardiology on board * [...] heparin sq. Charges/Coding Visit Charges Inpatient E&M: 59782 Subs Hosp L3 04/04/25 1742 Grace Arnold MD Cosigner Signature (if applicable): CC: ~ Signed [facility]06-04-2025 Progress note Author Donte [facility] Note Date/Time April 04, 2025 2:56p m [facility] Medical Records Department [address] [place] [address] Progress Note - Risk Assessment Consultant 04/04/25 1257 MR#: [id number] Acct: [id number] Name: ENOC ARMANDO Rep #:[id number] : 1945 79 From: Donte Silver PCP: [...] mls @ 15 mls/hr 04/03/25 05:18 IV .T15T00R PRN Saline Flush Sodium Chloride 250 mls @ 15 mls/hr 04/03/25 05:18 IV .H45Q69B PRN Additional IVPB Infusion Dextrose 250 mls @ 999 mls/hr 04/03/25 13:17 Dextrose 10%-Water IV .Q16M PRN Hypoglycemic Protocol Protocol Dextrose/Sodium Chloride 1,000 mls @ 60 mls/hr 04/03/25 22:35 04/03/25 23:16 IV 60 mls/hr .M19O20O [facility] Administration Insulin Glargine 15 unit 04/04/25 08:50 04/04/25 10:55 Insulin Glargine-Yfgn 100 Unit/Ml Pen SC 15 unit DAILY [facility] Administration Lisinopril 5 mg 04/03/25 10:00 04/03/25 07:58 Lisinopril 5 Mg Tablet PO 5 mg DAILY [facility] Administration Protocol Melatonin 3 mg 04/03/25 05:17 Melatonin 3 Mg Tablet PO QHS PRN PRN INSOMNIA Metoprolol Succinate 25 mg 04/03/25 10:00 04/04/25 10:55 Metoprolol(Xl)Succ 25 Mg Tablet PO 25 mg DAILY [facility] Administration Protocol Nitroglycerin 0.4 mg 04/03/25 05:17 Nitroglycerin (Inpatient Use) 0.4 Mg Tab.Subl SL Q5M PRN CARDIAC/CHEST PAIN Ondansetron HCl 4 mg 04/03/25 05:17 Ondansetron 4 Mg/2 Ml Vial IV Q8H PRN PRN NAUSEA/VOMITING Potassium Chloride 20 meq 04/03/25 08:00 04/04/25 10:50 Potassium Chloride Oral Tablet 20 Meq PO 20 meq BIDCM [facility] Administration Prednisone 40 mg 04/05/25 08:00 Prednisone 20 Mg Tablet PO 04/10/25 08:01 BREAKFAST [facility] Prochlorperazine Edisylate 5 mg 04/03/25 05:17 Prochlorperazine [...] Hcl 0.4 Mg Capsule PO 0.4 mg TuThSa@9680 [facility] Administration Lab / Micro Data 04/04/25 03:15 [...] (Auto) 90.4 H, Lymph % (Auto) 4.9L, [place] % (Auto) 4.0, Eos % (Auto) 0.0, [...] this encounter was done via Telemedicine 04/04/25 8599 <Electronically signed by Donte Nolen MD> Cosigner Signature (if applicable): CC: ~ Signed [facility] Work Phone: 1(655) 369-294906-04-2025 Progress note [facility] Medical Records Department [address] [place] [address] Progress Note - Risk Assessment Consultant 04/04/25 1257 MR#: [id number] Acct: [id number] Name: ENOC ARMANDO Rep #:[id number] : 1945 79 From: Donte Silver PCP: [...] mls @ 15 mls/hr 04/03/25 05:18 IV .C86X29Y PRN Saline Flush Sodium Chloride 250 mls @ 15 mls/hr 04/03/25 05:18 IV .W58I12S PRN Additional IVPB Infusion Dextrose 250 mls @ 999 mls/hr 04/03/25 13:17 Dextrose 10%-Water IV .Q16M PRN Hypoglycemic Protocol Protocol Dextrose/Sodium Chloride 1,000 mls @ 60 mls/hr 04/03/25 22:35 04/03/25 23:16 IV 60 mls/hr .H28S43V [facility]I Administration Insulin Glargine 15 unit 04/04/25 [...] Tablet PO 04/10/25 08:01 BREAKFAST [facility] Prochlorperazine Edisylate 5 mg 04/03/25 05:17 Prochlorperazine [...] Capsule PO 0.4 mg TuTa@1730 [facility] Administration Lab / Micro Data 04/04/25 03:15 [...] (Auto) 90.4 H, Lymph % (Auto) 4.9L, [place] % (Auto) 4.0, Eos % (Auto) 0.0, [...] this encounter was done via Telemedicine 04/04/25 2726 Cosigner Signature (if applicable): CC: ~ Signed [facility]06-04-2025 Progress note Author Breezy Campbell [facility] Note Date/Time April 04, 2025 10:35 am [facility] Medical Records Department [address] [place] [address] Progress Note - Cardiology 04/04/25 1028 MR#: [id number] Acct: [id number] Name: ENOC ARMANDO Rep #:[id number] : 1945 79 From: Breezy Campbell MD PCP: Dr. Ryley Jeter MD Status:ADM IN Location: ICU ICU04-1 Subjective Subjective Has not been able to obtain records from [facility] for his catheterization within the past 2 [...] (Auto) 90.4 H, Lymph % (Auto) 4.9L, [place] % (Auto) 4.0, Eos % (Auto) 0.0, [...] 90.4 H, Lymph % (Auto) 4.9 L, [place] % (Auto) 4.0, Eos % (Auto) 0.0, [...] catheterization within the last 2 years at [facility]. He also had 2 blockages that were [...] be willing to see him in the [place] [facility] in 7to 10 days after discharge. Charges/Coding Visit Charges Inpatient E&M: 86806 Subs Hosp 04/04/25 1036 <Electronically signed by Breezy Campbell MD> Cosigner Signature (if applicable): CC: ~ Signed [facility] Work Phone: 1(101) [phone] Progress note [facility] Medical Records Department [address] [place] [address] Progress Note - Cardiology 04/04/25 1028 MR#: [id number] Acct: [id number] Name: ENOC ARMANDO Rep #:[id number] : 1945 79 From: Breezy Campbell MD PCP: Dr. Ryley Jeter MD Status:ADM IN Location: ICU ICU04-1 Subjective Subjective Has not been able to obtain records from [facility] for his catheterization within the past 2 [...] (Auto) 90.4 H, Lymph % (Auto) 4.9L, [place] % (Auto) 4.0, Eos % (Auto) 0.0, [...] 90.4 H, Lymph % (Auto) 4.9 L, [place] %(Auto) 4.0, Eos % (Auto) 0.0, Baso [...] catheterization within the last 2 years at [facility]. He also had 2 blockages that were [...] be willing to see him in the [place] [facility] in 7to 10 days after discharge. Charges/Coding Visit Charges Inpatient E&M: 14773 [facility] Hosp 04/04/25 1035 Cosigner Signature (if applicable): CC: ~ Signed [facility]06-03-2025 Progress note Author [facility] Note Date/Time April 03, 2025 5:08p m [facility] Medical Records Department [address] [place] [address] Progress Note 04/03/25 1352 MR#: [id number] Acct: [id number] Name: ENOC ARMANDO Rep #:[id number] : 1945 79 From: Grace Arnold MD [...] 76.4 H, Lymph % (Auto) 13.5 L, [place] % (Auto) 7.0, Eos % (Auto) 1.9, [...] (Auto) 94.8 H, Lymph % (Auto) 3.3L, [place] % (Auto) 1.1, Eos % (Auto) 0.0, [...] congestion and/or pneumonia. [facility] Chest CTA 04/03/25 02:34 IMPRESSION: Mild bilateral pleural effusions. Passive atelectatic airspace disease/airspace consolidations of the lower lobes. Bilateral chronic perihilar interstitial pulmonary thickening with associated mild multifocal ground-glass densities, possibly superimposed pneumonia. Mild diffuse spondylosis. No CT evidence of pulmonary embolus or aortic dissection. Reading Location: [facility] Echocardiogram 04/03/25 05:55 Interpretation Summary Mid [...] 32 mins Charges/Coding Visit Charges Inpatient E&M: 73812 PROLNG IP/OBS E/M EA 15 MIN 04/03/25 [...] applicable): Date cc: ~* Signed [facility] Work Phone: 1(830) 493-687206-03-2025 Consult note Author Breezy Campbell [facility] Note Date/Time April 03, 2025 4:52p m [facility] Medical Records Department [address] [place] [address] Consultation - Cardiology 04/03/25 1630 MR#: [id number] Acct: [id number] Name: ENOC ARMANDO Rep #:[id number] : 1945 79 From: Breezy Campbell MD [...] left heart catheterization a year ago in [facility] we will try to obtain those records [...] I will try to obtain records from [place] to see if this is new but [...] Will try to obtain cardiovascular records from [place] from last year. 2. Continue current medical therapy. 3. Will follow along with you as the patient recovers from his pulmonary insufficiency we may need to alter his cardiovascular medical therapy. 4. The patient does not routinely see a boring inspector by his report. We will behappy to [...] last year he underwentleft heart catheterization in [place] and that revealed 2 blocked arteries that had natural bypasses build up around him and he was treated medically. The patient specifically denies any chest pain. He denies any lower extremity edema. The patient's complaint was really dyspnea on exertion. He is now beingtreated with IV antibiotics and ventilatory support. The patient is DNR CCA. [facility] Medical History (Updated 04/03/25 @ 16:49 by [...] AdvReac Other Verified 04/03/25 00:16 (Glucocorticoids) (steroids) Ksrcmdo-HJM-EwH Reductase AdvReac Other Verified 04/03/25 00:16 Inhibitor (Qtyndkf-Ycn-Gqh Reductase Inhibitor) Family History Mother COPD (chronic [...] 20% Risk Charges/Coding Visit Charges Inpatient E&M: 74093 Init Hosp L3 Objective Data Vital Signs: [...] 76.4 H, Lymph % (Auto) 13.5 L, [place] % (Auto) 7.0, Eos % (Auto) 1.9, [...] (Auto) 94.8 H, Lymph % (Auto) 3.3L, [place] % (Auto) 1.1, Eos % (Auto) 0.0, [...] 76.4 H, Lymph % (Auto) 13.5 L, [place] % (Auto) 7.0, Eos % (Auto) 1.9, Baso % (Auto) 0.6, Absolute Neuts (auto) 12.0 H, Nucleated RBC % 0, PT 13.4, INR 1.0,APTT 37.3 H, D-Dimer Quant (PE/DVT) 1.86 H*, Sodium 139, Potassium 4.4, Keprpikp330, Carbon Dioxide 20.8 L, Anion Gap 14, [...] 94.8 H, Lymph % (Auto) 3.3 L, [place] % (Auto) 1.1, Eos % (Auto) 0.0, [...] possibly multifocal congestion and/or pneumonia. [facility] Chest CTA 04/03/25 02:34 IMPRESSION: Mild bilateral pleural effusions. Passive atelectatic airspace disease/airspace consolidations of the lower lobes. Bilateral chronic perihilar interstitial pulmonary thickening with associated mild multifocal ground-glass densities, possibly superimposed pneumonia. Mild diffuse spondylosis. No CT evidence of pulmonary embolus or aortic dissection. Reading Location: [facility] Echocardiogram 04/03/25 05:55 Interpretation Summary Mid [...] By: Fiordaliza Edgar RDCS and Student 04/03/25 5034 <Electronically signed by Breezy Campbell MD> Cosigner Signature (if applicable): CC: Dr. Ryley Jeter MD~ Signed [facility] Work Phone: [phone] 375-132906-03-2025 Progress note [facility] Medical Records Department [address] [place] [address] Progress Note 04/03/25 1352 MR#: [id number] Acct: [id number] Name: ENOC ARMANDO Rep #:[id number] : 1945 79 From: Grace Arnold MD [...] 76.4 H, Lymph % (Auto) 13.5 L, [place] % (Auto) 7.0, Eos % (Auto) 1.9, Baso % (Auto) 0.6, Absolute Neuts (auto) 12.0 H, Absolute Lymphs (auto) 2.12, Nucleated RBC % 0, PT 13.4, INR 1.0,APTT 37.3 H, D-Dimer Quant (PE/DVT) 1.86 H*, Sodium 139, Potassium 4.4,Chloride 104, Carbon Vthsaqm79.8 L, Anion Gap 14, BUN 42 H, [...] (Auto) 94.8 H, Lymph % (Auto) 3.3L, [place] % (Auto) 1.1, Eos % (Auto) 0.0, [...] possibly multifocal congestion and/or pneumonia. Reading Location: [place] [address] Chest CTA 04/03/25 02:34 IMPRESSION: Mild bilateral pleural effusions. Passive atelectatic airspace disease/airspace consolidations of the lower lobes. Bilateral chronic perihilar interstitial pulmonary thickening with associated mild multifocal ground-glass densities, possibly superimposed pneumonia. Mild diffuse spondylosis. No CT evidence of pulmonary embolus or aortic dissection. Reading [facility] Echocardiogram 04/03/25 05:55 Interpretation Summary Mid to [...] 32 mins Charges/Coding Visit Charges Inpatient E&M: 68459 PROLNG IP/OBS E/M EA 15 MIN 04/03/25 [...] applicable): Date cc: ~* Signed [facility]06-03-2025 Consult note [facility] Medical Records Department [address] [place] [address] Consultation - Cardiology 04/03/25 1630 MR#: [id number] Acct: [id number] Name: ENOC ARMANDO Rep #:[id number] : 1945 79 From: Breezy Campbell MD [...] left heart catheterization a year ago in [place] we will try to obtain those records [...] I will try to obtain records from [place] to see if this is new but [...] Will try to obtain cardiovascular records from [place] from last year. 2. Continue current medical therapy. 3. Will follow along with you as the patient recovers from his pulmonary insufficiency we may need to alter his cardiovascular medical therapy. 4. The patient does not routinely see a boring inspector by his report. We will behappy to [...] last year he underwentleft heart catheterization in [place] and that revealed 2 blocked arteries that had natural bypasses build up around him and he was treated medically. The patient specifically denies any chest pain. He denies any lower extremity edema. The patient's complaint was really dyspnea on exertion. He is now beingtreated with IV antibiotics and ventilatorysupport. The patient is DNR CCA. [facility] Medical History (Updated 04/03/25 @ 16:49 by [...] AdvReac Other Verified 04/03/25 00:16 (Glucocorticoids) (steroids) Qpmeulj-RQV-XsY Reductase AdvReac Other Verified 04/03/25 00:16 Inhibitor (Oqpyfxd-Hla-Gem Reductase Inhibitor) Family History Mother COPD (chronic [...] 20% Risk Charges/Coding Visit Charges Inpatient E&M: 80113 Init Hosp L3 Objective Data Vital Signs: [...] 76.4 H, Lymph % (Auto) 13.5 L, [place] % (Auto) 7.0, Eos % (Auto) 1.9, Baso % (Auto) 0.6, Absolute Neuts (auto) 12.0 H, Absolute Lymphs (auto) 2.12, Nucleated RBC % 0, PT 13.4, INR 1.0,APTT 37.3 H, D-Dimer Quant (PE/DVT) 1.86 H*, Sodium 139, Potassium 4.4,Chloride 104, Carbon Hzzaixq32.8 L, Anion Gap 14, BUN 42 H, [...] (Auto) 94.8 H, Lymph % (Auto) 3.3L, [place] % (Auto) 1.1, Eos % (Auto) 0.0, [...] 76.4 H, Lymph % (Auto) 13.5 L, [place] % (Auto) 7.0, Eos % (Auto) 1.9, Baso % (Auto) 0.6, Absolute Neuts (auto) 12.0 H, Nucleated RBC %0, PT 13.4, INR 1.0,APTT 37.3 H, D-Dimer Quant (PE/DVT) 1.86 H*, Sodium 139, Potassium 4.4, Hiewzmpp263, Carbon Dioxide 20.8 L, Anion Gap 14, [...] 94.8 H, Lymph % (Auto) 3.3 L, [place] %(Auto) 1.1, Eos % (Auto) 0.0, Baso [...] possibly multifocal congestion and/or pneumonia. Reading Location: [place] [address] Chest CTA 04/03/25 02:34 IMPRESSION: Mild bilateral pleural effusions. Passive atelectatic airspace disease/airspace consolidations of the lower lobes. Bilateral chronic perihilar interstitial pulmonary thickening with associated mild multifocal ground-glass densities, possibly superimposed pneumonia. Mild diffuse spondylosis. No CT evidence of pulmonary embolus or aortic dissection. Reading Location: [place] [address] Echocardiogram 04/03/25 05:55 Interpretation Summary Mid to [...] Dr. Ryley Jeter MD~ Signed [facility]06-03-2025 Consult note Author Landry Fagan [facility] Note Date/Time April 03, 2025 9:04a [facility] Medical Records Department [address] [place] [address] Consultation - Risk Assessment Consultant 04/03/25 0850 MR#: [id number] Acct: [id number] Name: ARMANDOENOC Ariela Rep #:[id number] : 1945 79 From: Landry Fagan DO [...] without intubation This note was generated with Tickade dictation software. It may contain incorrectwords, spelling, [...] he has never been evaluated by a insurance coordinator or completed pulmonary function studies. Therefore, it [...] a DNR CCA without intubation. [facility] Medical History Chronic anemia Tobacco use COPD [...] AdvReac Other Verified 04/03/25 00:16 (Glucocorticoids) (steroids) Ssckgmi-DDM-PvV Reductase AdvReac Other Verified 04/03/25 00:16 Inhibitor (Etixlec-Qsi-Xel Reductase Inhibitor) Family History Mother COPD (chronic [...] 76.4 H, Lymph % (Auto) 13.5 L, [place] % (Auto) 7.0, Eos % (Auto) 1.9, [...] (Auto) 94.8 H, Lymph % (Auto) 3.3L, [place] % (Auto) 1.1, Eos % (Auto) 0.0, [...] possibly multifocal congestion and/or pneumonia. Reading Location: [place] [address] Chest CTA 04/03/25 02:34 IMPRESSION: Mild bilateral pleural effusions. Passive atelectatic airspace disease/airspace consolidations of the lower lobes. Bilateral chronic perihilar interstitial pulmonary thickening with associated mild multifocal ground-glass densities, possibly superimposed pneumonia. Mild diffuse spondylosis. No CT evidence of pulmonary embolus or aortic dissection. Reading Location: [place] [address] Charges/Coding Visit Charges Inpatient E&M: 14225 Init Hosp L3 04/03/25 0904 <Electronically signed by Landry Fagan DO> Cosigner Signature (if applicable): CC: Dr. Ryley Jeter MD~ Signed [facility] Work Phone: [phone] 498-771206-03-2025 Consult note [facility] Medical Records Department [address] [place] [address] Consultation - Risk Assessment Consultant 04/03/25 0850 MR#: [id number] Acct: [id number] Name: ENOC ARMANDO Rep #:[id number] : 1945 79 From: Landry Fagan DO PCP: Dr. Rlyey Jeter MD Status:ADM IN Location: ICU ICU04-1 [...] without intubation This note was generated with Tickade dictation software. It may contain incorrectwords, spelling, [...] he has never been evaluated by a insurance coordinator or completed pulmonary function studies. Therefore, it is unknown if the patient has underlying obstructive lung disease. He does not utilize any inhalers at his [facility]. On presentation to the emergency [...] be a DNR CCA withoutintubation. [facility] Medical History Chronic anemia Tobacco use COPD [...] AdvReac Other Verified 04/03/25 00:16 (Glucocorticoids) (steroids) Fcnctyy-TIO-EdK Reductase AdvReac Other Verified 04/03/25 00:16 Inhibitor (Hxcltjk-Dqn-Qtl Reductase Inhibitor) Family History Mother COPD (chronic [...] 76.4 H, Lymph % (Auto) 13.5 L, [place] % (Auto) 7.0, Eos % (Auto) 1.9, Baso % (Auto) 0.6, Absolute Neuts (auto) 12.0 H, Absolute Lymphs (auto) 2.12, Nucleated RBC % 0, PT 13.4, INR 1.0,APTT 37.3 H, D-Dimer Quant (PE/DVT) 1.86 H*, Sodium 139, Potassium 4.4,Chloride 104, Carbon Gwwepst01.8 L, Anion Gap 14, BUN 42 H, [...] (Auto) 94.8 H, Lymph % (Auto) 3.3L, [place] % (Auto) 1.1, Eos % (Auto) 0.0, [...] congestion and/or pneumonia. Reading [facility] Chest CTA 04/03/25 02:34 IMPRESSION: Mild bilateral pleural effusions. Passive atelectatic airspace disease/airspace consolidations of the lower lobes. Bilateral chronic perihilar interstitial pulmonary thickening with associated mild multifocal ground-glass densities, possibly superimposed pneumonia. Mild diffuse spondylosis. No CT evidence of pulmonary embolus or aortic dissection. Reading [facility] Charges/Coding Visit Charges Inpatient E&M: 90639 Init Hosp L3 04/03/25 0904 Cosigner Signature (if applicable): CC: Dr. Ryley Jeter MD~ Signed [facility]06-03-2025 History and physical note Author Dyana Hwang [facility] Note Date/Time April 03, 2025 4:42a m [facility] Medical Records Department [address] [place] [address] H&P Exam - Hospitalist 04/03/25 0402 MR#: [id number] Acct: [id number] Name: ENOC ARMANDO Rep #:[id number] : 1945 79 From: Dyana Hwang MD [...] use who presents to the [facility] ED on 04/03/2025 with history of worsening [...] and sublingual nitroglycerin x 1. [facility] Medical History (Updated 04/03/25 @ 04:40 by [...] AdvReac Other Verified 04/03/25 00:16 (Glucocorticoids) (steroids) Xvhkogg-APM-MkY Reductase AdvReac Other Verified 04/03/25 00:16 Inhibitor (Xyqxmwh-Nxv-Jhs Reductase Inhibitor) Family History (Updated 04/03/25 @ [...] 76.4 H, Lymph % (Auto) 13.5 L, [place] % (Auto) 7.0, Eos % (Auto) 1.9, [...] possibly multifocal congestion and/or pneumonia. Reading Location: [place] [address] Chest CTA 04/03/25 02:34 IMPRESSION: Mild bilateral pleural effusions. Passive atelectatic airspace disease/airspace consolidations of the lower lobes. Bilateral chronic perihilar interstitial pulmonary thickening with associated mild multifocal ground-glass densities, possibly superimposed pneumonia. Mild diffuse spondylosis. No CT evidence of pulmonary embolus or aortic dissection. Reading Location: [place] [address] Assessment & Plan Assessment/Plan (1) Acute hypoxic respiratory failure: PLAN: Plan The patient is an 79 y/o M w/ PMHx: CKD stage III unclear subtype per GFR trending, Chronic macrocytic anemia, HTN, HLD, Diabetes mellitus type II, BPH with obstructive pathology, Tobacco use who presents to the [facility] ED on 04/03/2025 with history of worsening [...] any pulmonary embolus or aortic dissection, initial ipsoogew10 with repeat delta troponin 76. Will maintain [...] 16 minutes. Charges/Coding Visit Charges Inpatient E&M: 01246 Init Hosp L3 Procedures Hospitalists Procedures: 84669 Advncd Care Plan 30 Min 04/03/25 0442 <Electronically signed by Dyana Hwang MD> Cosigner Signature (if applicable): CC: Dr. Dyana Hwang MD; Dr. Ryley Jeter MD~ Signed [facility] Work Phone: 1([phone]) 156-476706-03-2025 Evaluation note* Diagnosis Onset Date Resolution Status [...] (hypertension) chronic April 032024 4:16am [facility] Work Phone: 1(303) 907-558306-03-2025 Evaluation note* Diagnosis Onset Date Resolution Status [...] exacerbation chronic April 192024 3:06am [facility] Work Phone: [phone]) [phone] Evaluation note* Diagnosis Onset Date Resolution Status [...] exacerbation chronic April 192024 3:06am [facility] Work Phone: [phone] 131-840206-03-2025 Evaluation note* Diagnosis Onset Date Resolution Status [...] Hypertension chronic May 05 10:01pm [facility] Work Phone: [phone]) [phone] Evaluation note* Diagnosis Onset Date Resolution Status [...] May 05, 2025 1 0:01pm [facility] Work Phone: [phone] 132-710606-03-2025 Discharge summary Author John Brandon [facility] Note Date/Time April 03, 2025 4:11a m [facility] Medical Records Department [address] [place] [address] Emergency Department Summary 04/03/25 MR#: [id number] Acct: [id number] Name: ENOC ARMANDO Rep #:[id number] : 1945 79 From: John Ramirez PCP: Dr. Ryley Jeter MD Status:REG ER Location: ED HPI History of Present Illness Chief Complaint: Shortness of Breath PFSH [facility] Medical History Pneumonia COVID Wears glasses Wears [...] unit/mL 0 unit subcut TID SLIDING S JENINFER 08/05/21 Unknown History subcutaneous pen tamsulosin 0.4 [...] AdvReac Other Verified 04/03/25 00:16 (Glucocorticoids) (steroids) Nizdfkk-Yae-Dgj Reductase AdvReac Other Verified 04/03/25 00:16 Inhibitor [...] (L/min) 4 Fraction of Inspired Oxygen (FIO2) [facility] Narrative Medical decision making narrative: HISTORY OF [...] Consults: internal medicine only sees Dr. Hwang) [facility] Narrative: The patient was initially tachycardic, [...] to ICU This note was generated with Tickade dictation software. It may contain incorrectwords, spelling, [...] 76.4 H Lymph % (Auto) 13.5 L [place] % (Auto) 7.0 Eos % (Auto) 1.9 [...] possibly multifocal congestion and/or pneumonia. Reading Location: [place] [address] Discharge Plan Triage Chief Complaint: Shortness of [...] MD [Primary Care Provider] - Print Language: Qatari What to do if you have Problems For any increased pain, shortness of breath, bleeding, nausea or vomiting, chestpain, or any unexpected problems, contact your Primary Care Provider. Call [facility] ([phone]) or report to the closest Emergency Room. Call 911 if necessary. 04/03/25410 <Electronically signed by John Brandon DO> Cosigner Signature (if applicable): CC: Dr. Ryley Jeter MD ~ Signed [facility] Work Phone: [phone] History and physical note [facility] Medical Records Department [address] [place] [address] H&P Exam - Hospitalist 04/03/25 0402 MR#: [id number] Acct: [id number] Name: ENOC ARMANDO Rep #:[id number] : 1945 79 From: Dyana Hwang MD PCP: Dr. Ryley Jeter MD Status:ADM IN [facility] - General General Date of Admission: 04/03/25 Date of Service: 04/03/25 Chief Complaint: Dyspnea. HPI Narrative The patient is an 79 y/o M w/ PMHx: CKD stage III unclear subtype per GFR trending, Chronic macrocytic anemia, HTN, HLD, Diabetes mellitus type II, BPH with obstructive pathology, Tobacco use who presents to the [facility] ED on 04/03/2025 with history of worsening [...] and sublingual nitroglycerin x 1. [facility] Medical History (Updated 04/03/25 @ 04:40 by [...] AdvReac Other Verified 04/03/25 00:16 (Glucocorticoids) (steroids) Rmvwjpd-OCB-RpP Reductase AdvReac Other Verified 04/03/25 00:16 Inhibitor (Gcosgiz-Phq-Hzk Reductase Inhibitor) Family History (Updated 04/03/25 @ [...] 76.4 H, Lymph % (Auto) 13.5 L, [place] % (Auto) 7.0, Eos % (Auto) 1.9, [...] possibly multifocal congestion and/or pneumonia. Reading Location: [place] [address] Chest CTA 04/03/25 02:34 IMPRESSION: Mild bilateral pleural effusions. Passive atelectatic airspace disease/airspace consolidations of the lower lobes. Bilateral chronic perihilar interstitial pulmonary thickening with associated mild multifocal ground-glass densities, possibly superimposed pneumonia. Mild diffuse spondylosis. No CT evidence of pulmonary embolus or aortic dissection. Reading Location: [place] [address] Assessment & Plan Assessment/Plan (1) Acute hypoxic respiratory failure: PLAN: Plan The patient is an 79 y/o M w/ PMHx: CKD stage III unclear subtype per GFR trending, Chronic macrocytic anemia, HTN, HLD, Diabetes mellitus type II, BPH with obstructive pathology, Tobacco use who presents to the [facility] ED on 04/03/2025 with history of worsening [...] any pulmonary embolus or aortic dissection, initial ggukyffr23sshk repeat delta troponin 76. Will maintain on [...] 16 minutes. Charges/Coding Visit Charges Inpatient E&M: 99848 Init Hosp L3 Procedures Hospitalists Procedures: 96082 Advncd Care Plan 30 Min 04/03/25 0442 Cosigner Signature (if applicable): CC: Dr. Dyana Hwang MD; Dr. Ryley Jeter MD~ Signed [facility]06-03-2025 Discharge summary [facility] Medical Records Department [address] [place] [address] Emergency Department Summary 04/03/25 MR#: [id number] Acct: [id number] Name: ENOC ARMANDO Rep #:[id number] : 1945 79 From: John Ramirez PCP: Dr. Ryley Jeter MD Status:REG ER Location: ED HPI History of Present Illness Chief Complaint: [facility] Medical History Pneumonia COVID Wears glasses Wears [...] AdvReac Other Verified 04/03/25 00:16 (Glucocorticoids) (steroids) Kiszhhe-Zjo-Izo Reductase AdvReac Other Verified 04/03/25 00:16 Inhibitor [...] Consults: internal medicine only sees Dr. Hwang) [facility] Narrative: The patient was initially tachycardic, [...] to ICU This note was generated with Tickade dictation software. It may contain incorrectwords, spelling, [...] 76.4 H Lymph % (Auto) 13.5 L [place] % (Auto) 7.0 Eos % (Auto) 1.9 [...] possibly multifocal congestion and/or pneumonia. Reading Location: [place] [address] Discharge Plan Triage Chief Complaint: Shortness of [...] MD [Primary Care Provider] - Print Language: Qatari What to do if you have Problems For any increased pain, shortness of breath, bleeding, nausea or vomiting, chestpain, or any unexpected problems, contact your Primary Care Provider. Call [facility] ([phone]) or report tothe closest Emergency Room. Call 911 if necessary. 04/03/25 0419 Cosigner Signature (if applicable): CC: Dr. Ryley Jeter MD ~ Signed [facility]06-03-2025 Radiology Diagnostic study note [facility] Imaging Services [address] [place] [address] CTA Chest W/WO Contrast MR#: [id number] Acct: [id number] Name: ENOC ARMANDO Rep #: [id number] : 1945 M 79 From: Darcy Reese MD PCP: Dr. Ryley Jeter MD Status: REG ER Study:CTA Chest W/WO Contrast Date of Exam: 04/03/25 Exam# [id number] Ordering Dr: Mine Brandon DO PROCEDURE: CTA [...] pulmonary embolus or aortic dissection. Reading [facility] CC: Dr. Ryley Jeter MD; Dr. John Brandon DO ~ Photographic Engineer: Signed [facility]06-03-2025 Radiology Diagnostic study note [facility] Imaging Services [address] [place] [place], [place] [address] Chest 1 View (Portable) MR#: [id number] Acct: [id number] Name: ENOC ARMANDO Rep #: [id number] : 1945 M 79 From: Darcy Reese MD PCP: Dr. Ryley Jeter MD Status: REG ER Study:Chest 1 View (Portable) Date of Exam: 04/03/25 Exam# [id number] Ordering Dr: Mine Brandon DO PROCEDURE: CHEST [...] pneumonia. Reading Location: [facility] CC: Dr. Ryley Jeter MD; Dr. John Brandon DO ~ Photographic Engineer: Signed [facility]05-27-2025 Telephone encounter Note* Telephone Encounter - Ej Guidry MA - 03/27/2025 1:23 PM EDT Called pt's Alice with lab results per Dr. Small. Alice verbalized understanding and had no further questions. [id number] Miscellaneous Notes* Telephone Encounter - Ej Guidry [...] To: Woo Small MD documented in this [id number] Telephone encounter Note* Telephone Encounter - Ej Guidry MA - 03/27/2025 10:50 AM EDT Left voicemail asking for pt to call back to go over lab results per Dr. Small. Given phone number tocall back. [id number] Telephone encounter Note* Telephone Encounter - Ej [...] 7:18 AM EDT To: Woo Small MD [id number] NotePatient ID: Enoc Armando is a 79 y.o. male Subjective: HPI: Enoc Armanod presents for follow-up of Type 1 diabetes [...] being taken. Patient does not see a business systems technician. Eye exam is current. Currently taking: No [...] medications, past family his (more content not included)...[facility]05-12-2025 History of Present illness Narrative* Paty Ortega, [facility] - 03/12/2025 1:50 PM EDT Images [...] being taken. Patient does not see a business systems technician. Eye exam is current. Currently taking: No [...] if BG <150 at HS. 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 Had bilat cataract extraction Dr. Lopez. Sees Dr. Browne in [place] every year routinely.Has blurred vision with low [...] Call if BG consistently <70 or >250. [phone] Continue to check blood sugar 3 times [...] CNP 03/12/25 1:21 PM documented in this [id number] NoteGeneral Cardiology New Patient Clinic Consult [facility] 03/09/2025 Woo Small MD [facility] [address] Floor Medical Office [facility] [id number] Patient: Enoc Armando Date of [...] to be ischemic 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 (Primary) Patient underwent [...] file. Woo Small MD, FACC Non-Invasive Cardiology [facility] P:[phone] F:[phone] History of Present Illness: Enoc Armando is a 79 y.o. man with a past medical history of insulin-dependent diabetes for 30 years, history of tobacco use, recent COVID infection with systolic dysfunction ejection fraction ranging from 35 to 45% who [facility] He underwent stress testing which showed inferior wall abnormality as well as ejection fraction of 50%. I initially met with him back in January 2024 and he was doing quite well, however he presented in October with symptoms of fatigue, malaise, flash pulmonary edema and hypertensive emergency with reduced ejection fraction at [facility] [place]. 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 Tobacco abuse Past Surgical History: Procedure Laterality Date CATARACT EXT/ECCE Bilateral 12/2012,07/2014 ND CATH PLMT L HRT & ARTS W/NJX & ANGIO IMG S&I N/A 10/27/2024 Procedure: Coronary Angiogram; Surgeon: Elías Rodriguez MD; Location: HYBRID CHILD NUTRITION MANAGER; Service: Cardiovascular ND CATH PLMT L HRT & ARTS W/NJX & ANGIO IMG S&I N/A 10/27/2024 Procedure: Left Heart Cath; Surgeon: Elías Rodriguez MD; Location: HYBRID CHILD NUTRITION MANAGER; Service: Cardiovascular SKIN CANCER EXCISION 09/2021 L ear Family History Problem Relation Age of Onset Coronary artery disease Father Alzheimer's disease Father Social History Tobacco Use Smoking Statu (more content not included)...[facility] [id number] History of Present illness Narrative* Woo Small MD - 03/09/2025 9:39 AM EDT General Cardiology New Patient Clinic Consult [facility], Heart & Vascular 03/09/2025 oWo Small MD [address] [place] [address] 3rd Floor Medical Office [facility] [id number] Patient: Enoc Armando Date of [...] to be ischemic 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 (Primary) Patient underwent [...] follow-ups on file. Woo Small MD, [facility] Non-Invasive Cardiology [facility] P:[phone] F:[phone] History of Present Illness: Enoc Armando is a 79 y.o. man with a past medical history of insulin-dependent diabetes for 30 years, history of tobacco use, recent COVID infection with systolic dysfunction ejection fraction ranging from 35 to 45% who [facility]. He underwent stress testing which showedinferior wall abnormality as well as ejection fraction of 50%. I initially met with him back in January 2024 and he was doing quite well, however he presented in October with symptoms of fatigue, malaise, flash pulmonary edema and hypertensive emergency with reduced ejection fraction at [facility] [place]. Left heart catheterization was ultimately recommended which [...] Angiogram; Surgeon: Elías Rodriguez MD; Location: HYBRID CHILD NUTRITION MANAGER;Service: Cardiovascular ND CATH PLMT L HRT & ARTS W/NJX & ANGIO IMG S&I N/A 10/27/2024 Procedure: Left Heart Cath; Surgeon: Elías Rodriguez MD; Location: HYBRID CHILD NUTRITION MANAGER; Service: Cardiovascular SKIN CANCER EXCISION 09/2021 L ear Family History Problem Relation Age of Onset Coronary artery disease Father Alzheimer's disease Father Social History Tobacco Use Smoking Status Every Day Current packs/day: 0.50 Average packs/day: 0.5 packs/day for 61.4 years (30.7 ttl pk-yrs) Types: Cigarettes Start date: 1963 Smokeless Tobacco Never Allergies: Vqdochf-qdp-lff reductase inhibitors All of the information has [...] 3 tablet, Rfl: 3 OXYGEN-AIR DELIVERY SYSTEMS [facility], Inhale 2 L/min See Admin Instructions ., [...] mood and affect, appropriate conversation Cardiovascular Studies: [facility] 2024 Echo 2023 Carotids 2024 Summary [...] arterial duplex was normal Echocardiogram reviewed from [facility], 10/11/2023 moderately decreased ejection fraction estimated [...] BILITOT 0.3 10/27/2024 The ASCVD Risk score ([place] D[place], et al., 2019) failed to calculate for the following reasons: The 2019 ASCVD risk score is only valid for ages 40 to 79 Risk score cannot be calculated because patient has a medical history suggesting prior/existing ASCVD documented in this [id number] Instructions* Patient Instructions* Woo Small MD - 03/09/2025 7:56 AM EDT How to Contact your Care Team: Provider: Dr. Woo Small MD Clinic Nurse: FIDEL Moran Clinic MA: SUSAN Pagan REFILLS: When in need for refills please call your care team or the office at [phone]. Please include medication name, pharmacy name, and [...] work in 2 weeks documented in this [id number] NoteS DISCHARGE SUMMARY -- [facility] Enoc Armando : 1945 Admitted: 02/28/2025 Discharge Date: 03/05/25 PCP Handoff Recommended Outpatient Testing None Results Pending At Discharge None Clinical Summary Enoc Armando is a 79 y.o. male patient of Ryley Jeter MD with history of type I IDDM, hypertension, CAD, diastolic HF, dyslipidemia, COPD, CKD presented to [facility] on 02/28/2025 with shortness of breath. Assessment/plan [...] by mouth daily . (more content not included)...[facility]05-04-2025 NoteHMS PROGRESS NOTE Patient Name: Enoc Armando : 1945 Assessment and Plan Enoc Armando is a 79 y.o. male patient of Ryley Jeter MD with history of type I IDDM, hypertension, CAD, diastolic HF, dyslipidemia, COPD, CKD presented to [facility] on 02/28/2025 with shortness of breath. Assessment/plan [...] affect AUTHENTICATED BY BERNADETTE PARNELL ON 03/04/2025 11:10:[address] [place] [address] 03-03-2025 NoteHMS PROGRESS NOTE Patient Name: Enoc Armando : 1945 Assessment and Plan Enoc Armando is a 79 y.o. male patient of Ryley Jeter MD with history of type I IDDM, hypertension, CAD, diastolic HF, dyslipidemia, COPD, CKD presented to [facility] on 02/28/2025 with shortness of breath. Assessment/plan [...] affect AUTHENTICATED BY BERNADETTE PARNELL, ON 03/03/2025 12:05:[address] [place] [address] 03-03-2025 NoteGeneral Cardiology Inpatient Follow-up Heart & Vascular [facility] 03/03/2025 Aparna Browne, [facility] Patient: Enoc Armando Date of : 1945 (79 y.o.) PCP: Ryley Jeter MD Primary boring inspector: Assessment/Plan: Enoc Armando is a 79 y.o. [...] Final Result by Elías Rodriguez MD (10/27/2024 0917) Review of Systems: The following system(s) were [...] dictation software was used Aparna Browne MSN, [facility], ANP-C [1] Current Facility-Administered Medications Medication Dose [...] 0-5,000 Units Intravenous Con (more content not included)...[facility]05-02-2025 NoteHMS PROGRESS NOTE Patient Name: Enoc Armando : 1945 Assessment and Plan Enoc Armando is a 79 y.o. male patient of Ryley Jeter MD with history of type I IDDM, hypertension, CAD, diastolic HF, dyslipidemia, COPD, CKD presented to [facility] on 02/28/2025 with shortness of breath. Assessment/plan [...] affect AUTHENTICATED BY PEMA DUNBAR, ON 03/02/2025 13:48:[address] [place] [address] 03-01-2025 NoteHMS PROGRESS NOTE Patient Name: Enoc Armando : 1945 Assessment and Plan Enoc Armando is a 79 y.o. male patient of Ryley Jeter MD with history of type I IDDM, hypertension, CAD, diastolic HF, dyslipidemia, COPD, CKD presented to [facility] on 02/28/2025 with shortness of breath. Assessment/plan [...] affect AUTHENTICATED BY PEMA DUNBAR, ON 03/01/2025 12:52:[address] [place] [address] 02-28-2025 NoteHMS PROGRESS NOTE Patient Name: Enoc Armando : 1945 Assessment and Plan Enoc Armando is a 79 y.o. male patient of Ryley Jeter MD with history of type I IDDM, hypertension, CAD, diastolic HF, dyslipidemia, COPD, CKD presented to [facility] on 02/28/2025 with shortness of breath. Assessment/plan [...] affect AUTHENTICATED BY PEMA DUNBAR, ON 02/28/2025 13:04:55[facility] 02-28-2025 NoteHMS HISTORY AND PHYSICAL -- [facility] Patient Name: Enoc Armando : 1945 MR #: [id number] Admit Date: 02/28/2025 Physicians: Ryley Jeter MD (Family); No ref. provider found (Referring) Enoc Armando is a 79 y.o. male patient of Ryley Jeter MD with history of type I IDDM, hypertension, CAD, diastolic HF, dyslipidemia, COPD, CKD presented to [facility] on 02/28/2025 with shortness of breath. Assessment/plan [...] diastolic HF, dyslipidemia, COPD, CKD presented to [facility] on 02/28/2025 with shortness of breath. Patient [...] Angiogram; Surgeon: Elías Rodriguez MD; Location: HYBRID CHILD NUTRITION MANAGER; Service: Cardiovascular ND CATH PLMT L HRT & ARTS W/NJX & ANGIO IMG S&I N/A 10/27/2024 Procedure: Left Heart Cath; Surgeon: Elías Rodriguez MD; Location: HYBRID CHILD NUTRITION MANAGER; Service: Cardiovascular SKIN CANCER EXCISION 09/2021 L ear Family History Family History Problem Relation Age of Onset Coronary artery disease Father Alzheimer's disease Father Social History Tobacco Use History[1] Social History Substance and Sexual Activity Alcohol Use No Alcohol/week: 0.0 standard drinks of alcohol Social History Substance and Sexual Activity Drug Use No Allergy Information I have reviewed the patient's allergies. Ecqlkcw-zzs-lgp reductase inhibitors Home Medications Home medications were reviewed. Review Of Systems All relevant systems have been reviewed and are negative except as noted in HPI or below Physical Examination BP (!) 194/62 Pulse 97 Temp 97.8 degrees F (36.6 degrees C) (Oral) Resp (!) 22 Ht 5' 7 Wt 65.8 (more content not included)...[facility]04-28-2025 History of Present illness Narrative* Ayanna Albert, [...] DO 02/26/25 1:17 PM [facility] Phone: [phone]) 417-492604-16-2025 History of Present illness Narrative* Ej Guidry MA - 02/14/2025 11:02 AM EDT Refaxed letter written on 01/18/[address] Small to [facility]. documented in this [id number] Instructions* Patient Instructions* Luisa Easley RN - 11/14/2024 11:36 AM EST How to Contact your Care Team: Provider: Dr. Woo Small MD Clinic Nurse: FIDEL Moran Clinic MA: SUSAN Pagan REFILLS: When in need for refills please call your care team or the office at [phone]. Please include medication name, pharmacy name, and specify 30-day or 90-day supply. Please check with your pharmacy within 24 hours of request for your refill. You must follow up as directed to continue current refills. Thank you! documented in this [id number] History of Present illness Narrative* Woo Small MD - 11/14/2024 10:40 AM EST General Cardiology New Patient Clinic Consult [facility], Heart & Vascular 11/14/2024 Woo Small MD [address] [place] [phone] Patient: Enoc Armando Date of : 1945 (78 y.o.) PCP: Ryley Jeter MD Date of Service: 11/14/2024 Chief Complaint: Follow-up Assessment and Plan: 1. 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(Primary) Patient underwent left [...] 05/14/2025). Woo Small MD, FACC Non-Invasive Cardiology [facility] P:[phone] F:[phone] History of Present Illness: Enoc Armando is a 78 y.o. man with a past medical history of insulin-dependent diabetes for 30 years, history of tobacco use, recent COVID infection with systolic dysfunction ejection fraction ranging from 35 to 45% who [facility]. He underwent stress testing which showedinferior wall abnormality as well as ejection fraction of 50%. I initially met with him back in January 2024 and he was doing quite well, however he presented in October with symptoms of fatigue, malaise, flash pulmonary edema and hypertensive emergency with reduced ejection fraction at [facility] [place]. 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 Tobacco abuse Past Surgical History: Procedure Laterality Date CATARACT EXT/ECCE Bilateral 12/2012,07/2014 ND CATH PLMT L HRT & ARTS W/NJX & ANGIO IMG S&I N/A 10/27/2024 Procedure: Coronary Angiogram; Surgeon: Elías Rodriguez MD; Location: HYBRID CHILD NUTRITION MANAGER;Service: Cardiovascular ND CATH PLMT L HRT & ARTS W/NJX & ANGIO IMG S&I N/A 10/27/2024 Procedure: Left Heart Cath; Surgeon: Elías Rodriguez MD; Location: HYBRID CHILD NUTRITION MANAGER; Service: Cardiovascular SKIN CANCER EXCISION 09/2021 L ear Family History Problem Relation Age of Onset Coronary artery disease Father Alzheimer's disease Father Social History Tobacco Use Smoking Status Every Day Current packs/day: 0.50 Average packs/day: 0.5 packs/day for 61.0 years (30.5 ttl pk-yrs) Types: Cigarettes Start date: 1963 Smokeless Tobacco Never Allergies: Emvjceh-gcd-wlr reductase inhibitors All of the information has [...] 90 tablet, Rfl: 3 OXYGEN-AIR DELIVERY SYSTEMS [facility], Inhale 2 L/min See Admin Instructions ., [...] mood and affect, appropriate conversation Cardiovascular Studies: [facility] 2024 Echo 2023 Carotids 2024 Summary [...] arterial duplex was normal Echocardiogram reviewed from [facility], 10/11/2023 moderately decreased ejection fraction estimated [...] history suggesting prior/existing ASCVD documented in this [id number] NoteGeneral Cardiology New Patient Clinic Consult [facility], Heart & Vascular 11/14/2024 Woo Small MD [address] [place] [phone] Patient: Enoc Armando Date of : 1945 (78 y.o.) PCP: Ryley Jeter MD Date of Service: 11/14/2024 Chief Complaint: Follow-up Assessment and Plan: 1. 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 (Primary) Patient underwent [...] months (around 05/14/2025). Woo Small MD, [facility] Non-Invasive Cardiology [facility] P:[phone] F:[phone] History of Present Illness: Enoc Armando is a 78 y.o. man with a past medical history of insulin-dependent diabetes for 30 years, history of tobacco use, recent COVID infection with systolic dysfunction ejection fraction ranging from 35 to 45% who [facility] He underwent stress testing which showed inferior wall abnormality as well as ejection fraction of 50%. I initially met with him back in January 2024 and he was doing quite well, however he presented in October with symptoms of fatigue, malaise, flash pulmonary edema and hypertensive emergency with reduced ejection fraction at [facility] [place]. 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 Tobacco abuse Past Surgical History: Procedure Laterality Date CATARACT EXT/ECCE Bilateral 12/2012,07/2014 ND CATH PLMT L HRT & ARTS W/NJX & ANGIO IMG S&I N/A 10/27/2024 Procedure: Coronary Angiogram; Surgeon: Elías Rodriguez MD; Location: HYBRID CHILD NUTRITION MANAGER; Service: Cardiovascular ND CATH PLMT L HRT & ARTS W/NJX & ANGIO IMG S&I N/A 10/27/2024 Procedure: Left Heart Cath; Surgeon: Elías Rodriguez MD; Location: HYBRID CHILD NUTRITION MANAGER; Service: Cardiovascular SKIN CANCER EXCISION 09/2021 L ear Family History Problem Relation Age of Onset Coronary artery disease Father Alzheimer's disease Father Social History Tobacco Use Smoking Status Every Day Current packs/day: 0.50 Average packs/day: 0.5 packs/day for 61.0 years (30.5 ttl pk-yrs) Types: Cigarettes Start date: 1963 Smokeless Tobacco Never Allergies: Fjyxjjy-teo-jvx reductase inhibitors All of the information has been reviewed at today's visit and modified if necessary. Home Medications: Current Outpatient Medications: acetaminophen (Tylenol Arthritis Pain) 650 MG CR tablet, Take 1 (one) tablet (650 mg total) by mouth every 8 (eight) hours as needed for pain ., (more content not included)...[facility] [id number] NotePatient ID: Enoc Armando is a 78 [...] required IV insulin gtt. . Hospitalized in [facility]. Reports URI symptoms with ear lockage. [...] being taken. Patient does not see a business systems technician. Eye exam is current. Currently taking: No [...] mouth daily . - OXYGEN-AIR DELIVERY SYSTEMS [facility], Inhale 2 L/min See Admin Instructions . [...] kg (148 lb) 01 (more content not included)...[facility]01-13-2025 History of Present illness Narrative* [...] required IV insulin gtt. . Hospitalized in [facility]. Reports URI symptoms with ear lockage. [...] being taken. Patient does not see a business systems technician. Eye exam is current. Currently taking: No [...] if BG <150 at HS. 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 Had bilat cataract extraction Dr. Lopez. Sees Dr. Browne in [place] every year routinely.Has blurred vision with low [...] Call if BG consistently <70 or >250. [phone] Continue to check blood sugar 3 times [...] CNP 11/13/24 1:21 PM documented in this [id number] Evaluation + Plan note* Assessment & Plan [...] be performed in conjunction with coronary revascularization. [id number] Miscellaneous Notes* Assessment & Plan Note - [...] conjunction with coronary revascularization. documented in this [id number] NoteOFFICE CONSULTATION NOTE [facility] [address]) [facility] [address] 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 [address] 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 Tobacco abuse Past Surgical History: Procedure Laterality Date CATARACT EXT/ECCE Bilateral 12/2012,07/2014 ND CATH PLMT L HRT & ARTS W/NJX & ANGIO IMG S&I N/A 10/27/2024 Procedure: Coronary Angiogram; Surgeon: Elías Rodriguez MD; Location: HYBRID CHILD NUTRITION MANAGER;Service: Cardiovascular ND CATH PLMT L HRT & ARTS W/NJX & ANGIO IMG S&I N/A 10/27/2024 Procedure: Left Heart Cath; Surgeon: Elías Rodriguez MD; Location: HYBRID CHILD NUTRITION MANAGER; Service: Cardiovascular SKIN CANCER EXCISION 09/2021 L [...] Reported on 11/09/2024 .) Allergies Allergen Reactions Ctqpidy-Ues-Chz Reductase Inhibitors Muscle cramps ROS Negative aside [...] 11/27/2023 Kristy Parker MD documented in this [id number] Instructions* Patient Instructions* Yesenia Mcdaniel MA - 11/09/2024 10:32 AM EST How to contact your Care Team: Provider: MD Georgia Ludwig, TRISTAN Almonte, DOMINICK Clark Nurse: Jeannie Rubio RN To reschedule office appointments call Scheduling [phone] In case of an emergency please call 911. When in need of refills please call the phone number listed above. Please include medication name, pharmacy name and specify 30 or 90 day supply Please check with your pharmacy within 24 hours of your request for refill. You must follow up as directed to continue current refills. Thank you! documented in this [id number] Amanda Armando [id number] [email or web address] Brock Groves MD 11/07/24 Room/bed info [...] failure which required admission to [facility] for hypertensive emergency and acute flash pulmonary [...] - CHF (congestive heart failure) ([facility]) - CKD (chronic kidney disease) stage 4, GFR 15-29 ml/min ([facility]) - Diabetes mellitus type 1 ([facility]) - Emphysema lung ([facility]) - Hypercholesterolemia - Hypertension - Kidney stone 2006 Lithotripsy - Normocytic anemia - PAD (peripheral artery disease) ([facility]) - Pneumonia - Polyneuropathy - Spinal stenosis, lumbar - 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 - Tobacco abuse Past Surgical History: Procedure Laterality Date - CATARACT EXT/ECCE Bilateral 12/2012,07/2014 - ND CATH PLMT L HRT & ARTS W/NJX & ANGIO IMG S&I N/A 10/27/2024 Procedure: Coronary Angiogram; Surgeon: Elías Rodriguez MD; Location: HYBRID CHILD NUTRITION MANAGER; Service: Cardiovascular - ND CATH PLMT L HRT & ARTS W/NJX & ANGIO IMG S&I N/A 10/27/2024 Procedure: Left Heart Cath; Surgeon: Elías Rodriguez MD; Location: HYBRID CHILD NUTRITION MANAGER; Service: Cardiovascular - SKIN CANCER EXCISION 09/2021 [...] - insulin g (more content not included)...[facility] [id number] History of Present illness Narrative* Brock Groves MD - 11/07/2024 10:36 AM EST Enoc Armando [id number] [email or web address]@ Brock Groves MD 11/07/24 Room/bed info [...] failure which required admission to [facility] for hypertensive emergency and acute flash pulmonary [...] stenosis CHF (congestive heart failure) ([facility]) CKD (chronic kidney disease) stage 4, GFR 15-29 ml/min ([facility]) Diabetes mellitus type 1 (HCC) Emphysema lung (HCC) Hypercholesterolemia Hypertension Kidney stone 2006 Lithotripsy Normocytic anemia PAD (peripheral artery disease) ([facility]) Pneumonia Polyneuropathy Spinal stenosis, lumbar 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 Allergies Allergen Reactions Uayyrfy-Fgn-Kdd Reductase Inhibitors Muscle cramps Family History Problem [...] Resource Strain: Low Risk (10/11/2023) [facility] Overall Financial Resource Strain (CARDIA) Difficulty [...] Addressed This Visit None documented in this [id number] Progress note* Quick Note - Karthik Sandoval RN - 10/28/2024 2:53 PM EST Patient blood sugar at 1:27pm measured 288. Blood sugar at this time measured 321. [facility] ordered to give 8 units of lispro at this time and to instruct patient to recheck blood sugar in a couple hours at home. Patient IV removed and discharge education provided at this time. Patient understands and verbalizes he will check blood sugar when home and to follow medication regimen after discharge [id number] Miscellaneous Notes* Quick Note - Karthik Sandoval RN - 10/28/2024 2:53 PM EST Patient blood sugar at 1:27pm measured 288. Blood sugar at this time measured 321. [facility] ordered to give 8 units of lispro [...] but appreciative with provided care. Bed alarm litigation examiner light in reach. * Plan of Care [...] potasium and elevated glucose. documented in this [id number] NoteHMS DISCHARGE SUMMARY -- [facility] Enoc Armando Admitted: 10/27/2024 Discharge Date: 10/28/24 PCP Handoff Recommended Outpatient Testing none Results Pending At Discharge none Clinical Summary Enoc Armando is a 78 y.o. male patient of Ryley Jeter MD with history of coronary artery disease, type 1 diabetes, diastolic CHF, hypertension dyslipidemia COPD and lumbar spinal stenosis with chronic low back pain presented to [facility] on 10/27/2024 for an elective left heart [...] . Quantity: 90 tablet OXYGEN-AIR DELIVERY [facility] Inhale 2 L/min See Admin Instructions . [...] . Physician(s) Follow Up: Brock Groves MD [address] [place] [id number] Follow up on 11/07/2024 Consultation for surgivcal [...] PM AUTHENTICATED BY NIDIA GARAY, ON 10/28/2024 14:19:[address] [place] [address] 10-28-2024 Hospital course Narrative* Nidia Garay MD - 10/28/2024 2:16 PM EST [facility] DISCHARGE SUMMARY -- [facility] Enoc Armando Admitted: 10/27/2024 Discharge Date: 10/28/24 PCP Handoff Recommended Outpatient Testing none Results Pending At Discharge none Clinical Summary Enoc Armando is a 78 y.o. male patient of Ryley Jeter MD with history of coronary artery disease, type 1 diabetes, diastolic CHF, hypertension dyslipidemia COPD and lumbar spinal stenosis withchronic low back pain presented to [facility] on 10/27/2024 for an elective left heart [...] . Physician(s) Follow Up: Brock Groves MD [address] [place] [id number] Follow up on 11/07/2024 Consultation for surgivcal [...] on 10/28/24, 2:16 PM documented in this [id number] NoteDaily Progress Note Assessment/Plan: Principal Problem: Hyperglycemia [...] Garay.. AUTHENTICATED BY ZOILA POLLARD, ON 10/28/2024 14:16:[address] [place] [address] 10-28-2024 History of Present illness Narrative* Zoila [...] Garay MD - 10/28/2024 11:36 AM EST [facility] PROGRESS NOTE Assessment and Plan Enoc Armando is a 78 y.o. male patient of Ryley Jeter MD with history of coronary artery disease, type 1 diabetes, diastolic CHF, hypertension dyslipidemia COPD and lumbar spinal stenosis withchronic low back pain presented to [facility] on 10/27/2024 for an elective left heart [...] normal mood and affect documented in this [id number] NoteHMS PROGRESS NOTE Assessment and Plan Enoc Armando is a 78 y.o. male patient of Ryley Jeter MD with history of coronary artery disease, type 1 diabetes, diastolic CHF, hypertension dyslipidemia COPD and lumbar spinal stenosis with chronic low back pain presented to [facility] on 10/27/2024 for an elective left heart [...] affect AUTHENTICATED BY NIDIA GARAY ON 10/28/2024 11:43:[address] [place] [address] 10-28-2024 Plan of care note* Plan of Care - Karthik Sandoval RN - 10/28/2024 9:11 AM EST Problem: Actual or potential alteration in health Goal: Absence of healthcare acquired conditions Outcome: Partially Met Goal: Knowledge of Interdisciplinary Plan of Care Outcome: Partially Met Goal: Knowledge of Enviroment Outcome: Partially Met Problem: Pressure Injury, Risk of Goal: Absence of pressure injury Outcome: Partially Met [id number] Progress note* Quick Note - Julia Chan RN - 10/28/2024 8:05 AM EST Patient stands at edge of bed to void and request to go to restroom. Patient does not want bedrest orders that are in place at this time. Patient is anxious for dc to home but appreciative with provided care. Bed alarm litigation examiner light in reach. [id number] Plan of care note* Plan of Care [...] continue to monitor and report any concerns. [address]za[address]mbom16-58-8588 Progress note* Quick Note - Julia Chan [...] infusing and started at 6.6 units/hr. [address]2024 Progress note* Quick Note - Julia [...] excluding ice chips and sips with meds [id number] Progress note* Quick Note - Julia Chan RN - 10/27/2024 10:18 PM EST This RN received report from observation unit nurse via phone. [id number] Plan of care note* Plan of Care - Carlita Roth RN - 10/27/2024 9:42 PM EST Problem: Actual or potential alteration in health Goal: Absence of healthcare acquired conditions Outcome: Partially Met Goal: Knowledge of Interdisciplinary Plan of Care Outcome: Partially Met Goal: Knowledge of Enviroment Outcome: Partially Met [id number] History and physical note* Cintia Benitez MD - 10/27/2024 8:26 PM EST [facility] HISTORY AND PHYSICAL -- [facility] Patient Name: Enoc Armando : 1945 MR #: [id number] Admit Date: 10/27/2024 Physicians: Ryley Jeter MD (Family); No ref. provider found (Referring) Enoc Armando is a 78 y.o. male patient of Ryley Jeter MD with history of coronary artery disease, type 1 diabetes, diastolic CHF, hypertension dyslipidemia COPD and lumbar spinal stenosis withchronic low back pain presented to [facility] on 10/27/2024 for an elective left heart [...] with chronic low back pain presented to [facility] on 10/27/2024 for an elective left heart [...] Information I have reviewed the patient's allergies. Ueouibc-xbj-orn reductase inhibitors Home Medications Home medications were [...] normal coloration Psych: normal mood and affect [id number] NoteHMS HISTORY AND PHYSICAL -- [facility] Patient Name: Enoc Armando : 1945 MR #: [id number] Admit Date: 10/27/2024 Physicians: Ryley Jeter MD (Family); No ref. provider found (Referring) Enoc Armando is a 78 y.o. male patient of Ryley Jeter MD with history of coronary artery disease, type 1 diabetes, diastolic CHF, hypertension dyslipidemia COPD and lumbar spinal stenosis with chronic low back pain presented to [facility] on 10/27/2024 for an elective left heart [...] with chronic low back pain presented to [facility] on 10/27/2024 for an elective left heart [...] Information I have reviewed the patient's allergies. Ycglyva-pkh-ytm reductase inhibitors Home Medications Home medications were [...] Skin: normal coloration Psych: (more content not included)...[facility]12-27-2024 History and physical note* Cintia Benitez MD - 10/27/2024 8:26 PM EST [facility] HISTORY AND PHYSICAL -- [facility] Patient Name: Enoc Armando : 1945 MR #: [id number] Admit Date: 10/27/2024 Physicians: Ryley Jeter MD (Family); No ref. provider found (Referring) Enoc Armando is a 78 y.o. male patient of Ryley Jeter MD with history of coronary artery disease, type 1 diabetes, diastolic CHF, hypertension dyslipidemia COPD and lumbar spinal stenosis withchronic low back pain presented to [facility] on 10/27/2024 for an elective left heart [...] with chronic low back pain presented to [facility] on 10/27/2024 for an elective left heart [...] Information I have reviewed the patient's allergies. Gqlbluz-saq-eeo reductase inhibitors Home Medications Home medications were [...] Enoc Armando Admit Date: 12261205 MR #: [id number] : 1945 The H&P has been reviewed [...] need for emergency surgery, need for pacemaker, MT, stroke, or cardiac arrest/. Patient voiced understanding and agreed to proceed. Sedation Plan: Moderate ASA Classification: ASA 3: A patient with severe systemic disease. Mallampati Score: Class III: Only the soft palate is visible Elías Rodriguez MD 10/27/2024 8:17 AM Source Note - Woo Small MD - 10/18/2024 1:20 PM EST General Cardiology New Patient Clinic Consult [facility], Heart & Vascular 10/18/2024 Woo Small MD [address] [place] [address] 3rd Floor Medical Office [facility] [address] Patient: Enoc Armando Date of [...] follow-ups on file. Woo Small MD, [facility] Non-Invasive Cardiology [facility] P:[phone] F:[phone] History of Present Illness: Enoc Armando is a 78 y.o. man with a past medical history of insulin-dependent diabetes for 30 years, history of tobacco use, recent COVID infection with systolic dysfunction ejection fraction ranging from 35 to 45% [facility] He underwent stress testing which showedinferior wall abnormality as well as ejection fraction of 50%. I initially met with him back in January and he was doing quite well, however today he presents with progressive symptoms of fatigue, malaise, and a recent heart failure exacerbation at [facility] for hypertensive emergency and acute flash pulmonary [...] Cigarettes Smokeless Tobacco Never Allergies: Prednisone and Lzsumkn-xsi-ikz reductase inhibitors All of the information has [...] 50%, rest LVEF 51%. Echocardiogram reviewed from [facility], 10/11/2023 moderately decreased ejection fraction estimated [...] history suggesting prior/existing ASCVD documented in this [id number] Progress note* Quick Note - Zoila Pollard [...] stage IV kidney disease, BUN/creatinine: 92/2.60 respectively. [id number] Progress note* Quick Note - Mary Willis RN - 10/27/2024 12:[address] Rodriguez notified and at bedside to speak to patient r/g Critical potasium and elevated glucose. [id number] Attending History and physical note* Elías Rodriguez MD - 10/27/2024 8:17 AM EST INTERVAL HISTORY AND PHYSICAL Patient Name: Enoc Armando Admit Date: 12261205 MR #: [id number] : 1945 The H&P has been reviewed [...] need for emergency surgery, need for pacemaker, MT, stroke, or cardiac arrest/. Patient voiced understanding and agreed to proceed. Sedation Plan: Moderate ASA Classification: ASA 3: A patient with severe systemic disease. Mallampati Score: Class III: Only the soft palate is visible Elías Rodriguez MD 10/27/2024 8:17 AM Source Note - Woo Small MD - 10/18/2024 1:20 PM EST General Cardiology New Patient Clinic Consult [facility] Heart [facility]ascular 10/18/2024 Woo Small MD [address] [place] [address], 3rd Floor Medical Office [place] [id number] Patient: Enoc Armando Date of : 1945 [...] No follow-ups on file. Woo Small MD, [facility] P:[phone] F:[phone] History of Present Illness: Enoc Armando is a 78 y.o. man with a past medical history of insulin-dependent diabetes for 30 years, history of tobacco use, recent COVID infection with systolic dysfunction ejection fraction ranging from 35 to 45% who [facility]. He underwent stress testing which showedinferior wall abnormality as well as ejection fraction of 50%. I initially met with him back in January and he was doing quite well, however today he presents with progressive symptoms of fatigue, malaise, and a recent heart failure exacerbation at [facility] for hypertensive emergency and acute flash pulmonary [...] Cigarettes Smokeless Tobacco Never Allergies: Prednisone and Xurycxm-xuh-hbd reductase inhibitors All of the information has [...] 90 tablet, Rfl: 3 OXYGEN-AIR DELIVERY [facility], Inhale 2 L/min See Admin Instructions ., [...] 50%, rest LVEF 51%. Echocardiogram reviewed from [facility], 10/11/2023 moderately decreased ejection fraction estimated [...] has a medical history suggesting prior/existing ASCVD [facility] Work Phone: 1(955) 557-472212-27-2024 Hospital Discharge instructions* Discharge Instructions* Sonya King RN - 10/27/2024 8:16 AM EST [facility] Post Cardiac Catheterization Discharge Instructions Site Care Leave Bandage in place the night of your catheterization. Watch for any bleeding or oozing from thesite. If this occurs, lie flat and place direct pressure on the bandage for 20 minutes. If bleedingreoccurs call [facility]. For groins, remove your bandage the [...] shower 24 hours after the procedure. Call [facility] at [phone] if you notice any of the following: [...] need of prescription assistance, please notify the [facility] nurse or call the office. If you were prescribed Plavix (clopidogrel), Effient (prasugrel), or Brilinta (ticagrelar) after your procedure, DO NOT STOP taking this medication unless told to do so by your [facility] boring inspector. Follow up appointments, tests or procedures will be on your discharge paperwork under What's next. Please call [facility] at [phone] to reschedule any appointments if needed or if you have any questions or concerns. Thank you! documented in this [id number] Instructions* Patient Instructions* Luisa Easley RN - 10/18/2024 1:27 PM EST How to Contact your Care Team: Provider: Dr. Woo Small MD Clinic Nurse: Luisa Vega RN Clinic MA: Ej Guidry MA REFILLS: When in need for refills please call your care team or the office at [phone]. Please include medication name, pharmacy name, and specify 30-day or 90-day supply. Please check with your pharmacy within 24 hours of request for your refill. You must follow up as directed to continue current refills. Thank you! Heart Catheterization Date of your procedure: 10/27/2024 at 8:00am Please arrive at [facility]. Please park in the garage next to the medical office building. If needed, rail loader parking is available at the front entrance [...] questions or concerns please contact us at [phone]. documented in this [id number] History of Present illness Narrative* Woo Small MD - 10/18/2024 1:20 PM EST General Cardiology New Patient Clinic Consult [facility] Heart [facility] Vascular 10/18/2024 Woo Small MD [address] [place] [address] 3rd Floor Medical Office [facility] [address] Patient: Enoc Armando Date of [...] follow-ups on file. Woo Small MD, [facility] Non-Invasive Cardiology [facility] P:[phone] F:[phone] History of Present Illness: Enoc Armando is a 78 y.o. man with a past medical history of insulin-dependent diabetes for 30 years, history of tobacco use, recent COVID infection with systolic dysfunction ejection fraction ranging from 35 to 45% who [facility]. He underwent stress testing which showedinferior wall abnormality as well as ejection fraction of 50%. I initially met with him back in January and he was doing quite well, however today he presents with progressive symptoms of fatigue, malaise, and a recent heart failure exacerbation at [facility] for hypertensive emergency and acute flash pulmonary [...] Cigarettes Smokeless Tobacco Never Allergies: Prednisone and Ywwfcmb-ucp-elc reductase inhibitors All of the information has [...] 50%, rest LVEF 51%. Echocardiogram reviewed from [facility], 10/11/2023 moderately decreased ejection fraction estimated [...] history suggesting prior/existing ASCVD documented in this [id number] NoteGeneral Cardiology New Patient Clinic Consult [facility] Heart [facility] Vascular 10/18/2024 Woo Small MD [address] [facility], 3rd Floor Medical Office Building [facility] [address] Patient: Enoc Armando Date of [...] follow-ups on file. Woo Small MD, [facility] Non-Invasive Cardiology [facility] P:[phone] F:[phone] History of Present Illness: Enoc Armando is a 78 y.o. man with a past medical history of insulin-dependent diabetes for 30 years, history of tobacco use, recent COVID infection with systolic dysfunction ejection fraction ranging from 35 to 45% who [facility]. He underwent stress testing which showed inferior wall abnormality as well as ejection fraction of 50%. I initially met with him back in January and he was doing quite well, however today he presents with progressive symptoms of fatigue, malaise, and a recent heart failure exacerbation at [facility] for hypertensive emergency and acute flash pulmonary [...] Cigarettes Smokeless Tobacco Never Allergies: Prednisone and Ksbmdxl-ajb-xnt reductase inhibitors All of the information has [...] capsule, Take 1 ( (more content not included)...[facility]12-06-2024 Telephone encounter Note* Telephone Encounter - Luisa Easley RN - 10/06/2024 2:45 PM EST Spoke with pt and reviewed Dr. Small's comments and suggestions. Pt was agreeable to starting Imdur 30mg daily and confirmed appt with Dr. Small on 10/18 at 1:20pm in the [place] location. Pt expressedappreciation and understanding. [id number] Telephone encounter Note* Telephone Encounter - Luisa [...] are involved abnormalities can be difficult to leaf size picker Would he be okay coming in [...] Woo Small MD We received everything from [place] on him-I know we were waiting on this to see about changing things up ----- Message ----- From: Ej Guidry MA Sent: 10/04/2024 2:01 PM EST To: Luisa Easley RN Records from [facility] [id number] Miscellaneous Notes* Telephone Encounter - Luisa Easley RN - 10/06/2024 2:45 PM EST Spoke with pt and reviewed Dr. Small's comments and suggestions. Pt was agreeable to starting Imdur 30mg daily and confirmed appt with Dr. Small on 10/18 at 1:20pm in the [place] location. Pt expressedappreciation and understanding. * Telephone [...] are involved abnormalities can be difficult to leaf size picker Would he be okay coming in [...] EST To: Luisa Easley RN Records from [facility] documented in this [id number] [facility] 09-12-2024 [facility]10-29-2024 History of Present illness Narrative* Ayanna [...] 1:12 PM documented in this [facility] Work Phone: 1(674) 534-548009-20-2024 NotePatient ID: Enoc Armando is a 78 [...] High flow O2, C-pap, etc. Hospitalized in [facility] with CHF, pleural effusions and elevated [...] being taken. Patient does not see a business systems technician. Eye exam is current. Currently taking: No [...] Neurological: Mental Status: He (more content not included)...[facility]09-20-2024 History of Present illness Narrative* Paty Ortega, [facility] - 07/21/2024 1:58 PM EDT Images [...] High flow O2, C-pap, etc. Hospitalized in [facility] with CHF, pleural effusions and elevated [...] being taken. Patient does not see a business systems technician. Eye exam is current. Currently taking: No [...] by mouth daily . [facility]XYGEN[facility]AIR DELIVERY [facility], Inhale 2 L/min See Admin Instructions . [...] if BG <150 at HS. 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 Had bilat cataract extraction Dr. Lopez. Sees Dr. Browne in [place] every year routinely.Has blurred vision with low [...] Call if BG consistently <70 or >250. [phone] Continue to check blood sugar 3 times [...] CNP 07/21/24 1:21 PM documented in this [id number] Instructions* Patient Instructions* Luisa Easley RN - 04/24/2024 10:08 AM EDT How to Contact your Care Team: Provider: Dr. Woo Small MD Clinic Nurse: Luisa Easley RN Clinic MA: Ej Guidry MA REFILLS: When in need for refills please call your care team or the office at [phone]. Please include medication name, pharmacy name, and specify 30-day or 90-day supply. Please check with your pharmacy within 24 hours of request for your refill. You must follow up as directed to continue current refills. Thank you! documented in this [id number] History of Present illness Narrative* Woo Small MD - 04/24/2024 9:40 AM EDT General Cardiology New Patient Clinic Consult [facility] 04/24/2024 Woo Small MD [address] [place] [phone] Patient: Enoc Armando Date of : [...] year (around 04/24/2025). Woo Small MD, [facility] Non-Invasive Cardiology [facility] P:[phone] F:[phone] History of Present Illness: Enoc Armando is a 78 y.o. man with a past medical history of insulin-dependent diabetes for 30 years, history of tobacco use, recent COVID infection with systolic dysfunction ejection fraction ranging from 35 to 45% who presented initially to [facility]. He underwent stress testing which showedno definite [...] Cigarettes Smokeless Tobacco Never Allergies: Prednisone and Gjxruub-oke-wja reductase inhibitors All of the information has [...] 90 tablet, Rfl: 3 OXYGEN-AIR DELIVERY SYSTEM[facility], Inhale 2 L/min See Admin Instructions ., [...] 50%, rest LVEF 51%. Echocardiogram reviewed from [facility], 10/11/2023 moderately decreased ejection fraction estimated [...] BILITOT 0.7 11/27/2023 The ASCVD Risk score ([place], et al., 2019) failed to calculate for the following reasons: The 2019 ASCVD risk score is only valid for ages 40 to 79 The patient has a prior MT or stroke diagnosis documented in this [id number] Telephone encounter Note* Telephone Encounter - Ej Guidry MA - 03/28/2024 1:53 PM EDT Pt was last seen on 01/14/24 by Aylin Lacy CNP. Refills appropriate. Routing to Dr. Garay as Dr. Small is out of the office. [id number] Miscellaneous Notes* Telephone Encounter - Ej Guidry MA - 03/28/2024 1:53 PM EDT Pt was last seen on 01/14/24 by Aylin Lacy CNP. Refills appropriate. Routing to Dr. Garay as Dr. Small is out of the office. documented in this [id number] Evaluation + Plan note* Assessment & Plan Note - CULLEN Guzmán DNP - 02/24/2024 2:39 PM EDT Associated Problem(s): CKD (chronic kidney disease) Creatinine is stable at 1.92 and stable, stage IIIb, blood pressure is well controlled, diabetes well controlled, not using NSAIDs. [facility] Work Phone: 1(831) 287-531404-25-2024 Miscellaneous Notes* Assessment & Plan Note - [...] and metoprolol, no changes [facility] Phone: 1(185) 824-803204-25-2024 Evaluation + Plan note* Assessment & Plan Note - CULLEN Guzmán DNP - 02/24/2024 2:38 PM EDTAssociated Problem(s): Type 1 diabetes mellitus with diabetic neuropathy (Multi) Follows with endocrinology, is not to use SGLT2 due to Type I diabetes [facility] Work Phone: 1(293) 771-290304-25-2024 Evaluation + Plan note* Assessment & Plan Note - CULLEN Guzmán DNP - 02/24/2024 2:38 PM EDTAssociated Problem(s): Essential hypertension BP is well controlled on lisinopril and metoprolol, no changes [facility] Work Phone: 1(402) 124-592704-25-2024 History of Present illness Narrative* CULLEN Guzmán [...] 1:50 PM documented in this [facility] Work Phone: 1(625) 725-369404-19-2024 History of Present illness Narrative* Paty Ortega [...] High flow O2, C-pap, etc. Hospitalized in [facility] with CHF, pleural effusions and elevated [...] being taken. Patient does not see a business systems technician. Eye exam is current. Currently taking: No [...] if BG <150 at HS. 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 Had bilat cataract extraction Dr. Lopez. Sees Dr. Browne in [place] every year routinely.Has blurred vision with low [...] Call if BG consistently <70 or >250. [phone] Continue to check blood sugar 3 times [...] CNP 02/18/24 1:21 PM documented in this [id number] Instructions* Patient Instructions* Robert Dominguez RN - 01/14/2024 11:46 AM EDT How to Contact your Care Team: Provider: Dr. Woo Small MD Clinic Nurse: Luisa Easley RN REFILLS: When in need for refills please call your care team or the office at [phone]. Please include medication name, pharmacy name, and specify 30-day or 90-day supply. Please check with your pharmacy within 24 hours of request for your refill. You must follow up as directed to continue current refills. Thank you! documented in this [id number] History of Present illness Narrative* Aylin Lacy CNP - 01/14/2024 11:00 AM EDT General Cardiology Returning Patient Clinic Visit [facility], Heart & Vascular 01/14/2024 Aylin Lacy CNP [address] [facility] Medical Office [facility] [address] Patient: Enoc Armando Date of : 1945 (78 y.o.) Optical Engineering Technician: Dr. Small PCP: Ryley Jeter MD Chief Complaint: Transitional care appointment Date of Service: 01/14/2024 Assessment and Plan: Systolic dysfunction with recovery of ejection fraction -Euvolemic on exam -Continue lisinopril 5 mg daily -Continue metoprolol succinate 25 mg daily -Continue Lasix 20 mg twice daily -He is following with nephrology in [place]. He has an upcoming appointment and labs [...] Next scheduled follow up. Aylin Lacy, MSN, PHARMACIST HOSPITAL, AIR TWIST OPERATOR-C, CALF SKINNER, ECG- General Cardiology [facility] History of Present Illness: Enoc Armando is a 78 y.o. man with a past medical history of hypertension, hyperlipidemia, insulin-dependent diabetes mellitus, CKD, smoker, emphysema, chronic hypoxemia and systolic dysfunction. He presents today for transitional care appointment. He was last seen in our office on 10/21/2023 by his primary boring inspector Dr. Small. Recent COVID infection at the end of last year and patient was notedto have systolic dysfunction with a ejection fraction ranging from 35 to 45%. He had left ventricular recovery noted on most recent echocardiogram from 11/30/2023, LVEF 63%. He presented to the [facility] on 11/27/2023 with complaints of respiratory distress. [...] 25.50 Types: Cigarettes Smokeless Tobacco Never Allergies: Zehfezt-lyq-ymo reductase inhibitors All of the above information [...] , Rfl: pen needle, diabetic (BD Ultra-Fine Joylnn Pen [...] to 77 The patient has a prior MT or stroke diagnosis documented in this [id number] Telephone encounter Note* Telephone Encounter - Ej Guidry MA - 12/29/2023 10:31 AM EST Pt's called in asking if pt needs to continue the lasix from hospitla if so he needs a refill.Per the note on 12/01/23 per Ellie Aguilar FILLER SPREADER: IV Lasix 20 mg BID, can transition to orals on discharge. Pt has an appt on 01-14-24 with Aylin HUDSON. Pended medication to Dr. Small for her to sign. [id number] Miscellaneous Notes* Telephone Encounter - Ej Guidry MA - 12/29/2023 10:31 AM EST Pt's called in asking if pt needs to continue the lasix from hospitla if so he needs a refill.Per the note on 12/01/23 per Ellie Aguilar FILLER SPREADER: IV Lasix 20 mg BID, can transition to orals on discharge. Pt has an appt on 01-14-24 with Aylin HUDSON. Pended medication to Dr. Small for her to sign. documented in this [id number] Miscellaneous Notes* Quick Note - Ellie Aguilar CNP - 12/01/2023 11:20 AM EST [id number] ENCOUNTER FOR HOME MEDICAL EQUIPMENT PATIENT: Enoc Armando : 1945 Statement of Care: I certify that Enoc Armando is under my care and that I, a Nurse Practitioner, Physician's Nailhead Puncher, or Resident working with me, had a nptn-nw-ylbw encounter with this patient yesterday to evaluate and discuss the need for home medical equipment. I certify that based on the findings of this evaluation, which included but was not limited to the wlda-eb-dnss requirements, the following home medical equipment is [...] no longer in ICU bed. On 2lpm [facility]. Critical care will sign off. * CDI Query - Cintia Benitez MD - 11/29/2023 6:23 AM EST Query 2 of 2 Noted 11/27 [facility] PMHx documentation of CKD Clinical Indicators: [...] renal status. For Example: CKD stage 3 [facility] CKD stage: (please stage, if known) Other (please specify) Chronic Kidney Disease Stages: Stage eGFR I > 90 II 60 - 89 III 30 - 59 IV 15 - 29 V < 15 or dialysis ESRD Thank you, Aubree CRAWFORD,RN Clinical Documentation hydraulic and plumbing installer After business hours you may contact Ebony Dayana at [phone] (Weekdays until 10 PM and weekends 8 AM -10 PM) * CDI Query - Cintia Benitez MD - 11/29/2023 6:14 AM EST Noted 11/27 [facility] documentation of heart failure. Clinical Indicators: 11/27 [facility]: CHF....-Continue IV Lasix, check I's and [...] crackles at base Test results: 11/27: BNP: 30279 Please specify the acuity and type of heart failure in the progress notes. For Example: Acute on chronic systolic CHF POA Chronic systolic CHF, no acute exacerbation Other (please specify) Thank you, Aubree CRAWFORD,RN Clinical Documentation Ammunition Assembly I Laborer After business hours you may contact Ebony Link at [phone] (Weekdays until 10 PM and weekends 8 [...] currently. Priscilla Aranda RDN, LD Dietitian's Office [phone] * Quick Note - Carlita Lazaro RRT - 11/27/2023 5:43 AM EST Critical Glucose from VBG reported to Norma Geiger FILLER SPREADER * Quick Note - Julia Chan RN [...] Brief Progress Note PERMANENT 11/27/2023 04:43 [facility] CCU ENOC ARMANDO Date of Service 11/27/2023 [...] adjustment * Quick Note - Carlita Lazaro, MANUFACTURING ASSOCIATE - 11/27/2023 4:20 AM EST Called by RN due to patient SpO2 87% on 2L. RN states she increased to 4L and patient was 90%. Wentto patient room and patient was diaphoretic and with increased WOB with RR at 37. Patient placed onbipap and Norma Juanjo CORRECTIONAL LIEUTENANT notified. Patient was then transferred to MICU [...] came to room and replaced on bipap. CORRECTIONAL LIEUTENANT came to see patient and request patient [...] that patient has arrived from [facility]. Attempt to let dr Pereira aware of arrival from [facility] no answer will leave message. documented in this [id number] Hospital course Narrative* Ellie Aguilar, TRISTNA - 12/01/2023 11:03 AM EST [facility] [place] SUMMARY -- [facility] Enoc Armando Admitted: 11/27/2023 Discharge Date: 12/01/23 PCP Handoff Recommended Outpatient Testing None Results Pending At Discharge None Clinical Summary Enoc Armando is a 77 y.o. male patient of Ryley Jeter MD with history of HTN, HLD, DM Type I, CKD, COPD, chronic hypoxemic respiratory failure who presented to [facility] with respiratory distress . Severe Sepsis Present [...] Ryley Jeter MD [address] [facility] [address] Follow up Please call to schedule a follow up appointment to be seen in the next 1-2 weeks Condition at Discharge: Stable Disposition: Home with Home Health I reviewed discharge recommendations with the patient in person. Patient instructions, including activity, were given to the patient/family at discharge. On day of discharge I saw Enco Armando and spent: > 30 minutes on discharge. Completed by: Ellie Aguilar on 12/01/23, 11:10 AM documented in this [id number] History of Present illness Narrative* Cassius Jody, [...] Static: Supervision, without UE support, with device Technical Mgr - Standing Static: wheeled walker Loss of Balance- Standing Static: (none) Standing Balance - Dynamic: Stand by assist Technical Mgr - Standing Dynamic: wheeled walker Loss of Balance- Standing Dynamic: (none) Bed Mobility Supine to Sit: Contact guard assist, Head of bed elevated Technical Mgr: (none) Skilled Intervention Provided: verbal cues, monitoring patient response with activity, environmental setup/modification, facilitation, provided step by step instructions For: efficient movement, safety during functional tasks, sequencing of movement Resulting in: improved activity tolerance, improved functional independence, improved performance, improved safety, increased upright tolerance for functional tasks Transfers Sit to Stand: Stand by assist Technical Mgr: BUE, wheeled walker Additional Transfer Trial 2: Yes Sit to Stand Trial 2: Stand by assist Technical Mgr Trial 2: wheeled walker, BUE Skilled Intervention [...] O2;) Prior Level of Function Level of Onyx - Transfers/Ambulation/Mobility: Independent with functional transfers, Independent with household ambulation, Independent with community ambulation (no AD for in home ambulation, intermitant use of cane in community for longer distances) Level of Onyx - ADLs: Independent Level of Onyx - Homemaking: ( takes care of all [...] Enoc Armando Admit Date: 11/27/2023 MR #: [id number] : 1945 Current location: [facility] Physicians: Ryley Jeter MD (Family); Britton Geiger [...] NST in a week, spoke with his boring inspector Dr. Small, who will arrange to have [...] CHF, hypertension, hyperlipidemia, emphysema who presented to [facility] emergency department with a complaint [...] T CO2 17. He was transferred to [facility] for further evaluation and treatment. At [...] platelet count 220,000 Allergies: Allergies Allergen Reactions Hnxasym-Zrc-Hby Reductase Inhibitors Muscle cramps Home Medications: Outpatient [...] furosemide 20 mg Intravenous Q12H [facility] insulin glargine 14 Units Subcutaneous Nightly lispro [...] Enoc Armando Admit Date: 1261205 MR #: [id number] : 1945 Physicians: Ryley Jeter MD (Family); Ger Bansal DO (Referring) Assessment: Patient with 1. Respiratory failure 2. Suspicion for pneumonia 3. Possible congestive heart failure 4. Non-ST elevation MT. 5. History of COVID-19 infection. Plan: Continue patient on current therapy Continue patient on IV azithromycin Continue on ceftriaxone From [facility] 5 weeks ago patient was [...] the patient is stable. Previous x-ray at [facility] had shown congestive changes and edema [...] 97.9 F (36.6 C) SpO2: 94% Allergies: Ypsplyh-ghs-tlk reductase inhibitors Medications Reviewed. Current Facility-Administered Medications: [...] excoriations Musculoskeletal: No joint swelling, non tender RECRUITER SPECIALIST: Awake, and Ox3 Wound: No Osborne Catheter: [...] Aguilar CNP - 11/30/2023 9:26 AM EST [facility] PROGRESS NOTE Assessment and Plan Enoc Armando is a 77 y.o. male patient of Ryley Jeter MD with history of HTN, HLD, DM Type I, CKD, COPD, chronic hypoxemic respiratory failure who presented to [facility] with respiratory distress . Severe Sepsis Present [...] treatment for pneumonia and CHF Discharge Location: [facility] Quality Measures DVT Prophylaxis:scd Osborne Catheter: [...] Enoc Armando Admit Date: 1261205 MR #: [id number] : 1945 Physicians: Ryley Jteer MD (Family); Ger Bansal DO (Referring) Assessment: Patient with 1. Respiratory failure 2. Suspicion for pneumonia 3. Possible congestive heart failure 4. Non-ST elevation MT. 5. History of COVID-19 infection. Plan: Continue patient on current therapy Continue patient on IV azithromycin Continue on ceftriaxone From [facility] 5 weeks ago patient was [...] the patient is stable. Previous x-ray at [facility] had shown congestive changes and edema [...] 97.7 F (36.5 C) SpO2: 97% Allergies: Ehzkzxf-kif-uan reductase inhibitors Medications Reviewed. Current Facility-Administered Medications: [...] excoriations Musculoskeletal: No joint swelling, non tender RECRUITER SPECIALIST: Awake, and Ox3 Wound: No Osborne Catheter: [...] Enoc Armando Admit Date: 11/27/2023 MR #: [id number] : 1945 Current location: [facility] Physicians: Ryley Jeter MD (Family); Britton Geiger [...] CHF, hypertension, hyperlipidemia, emphysema who presented to [facility] emergency department with a complaint [...] T CO2 17. He was transferred to [facility] for further evaluation and treatment. At [...] platelet count 220,000 Allergies: Allergies Allergen Reactions Hjjdoma-Bwz-Fqk Reductase Inhibitors Muscle cramps Home Medications: Outpatient [...] (PF) 5 mL Intravenous Q8H [facility] acetaminophen, dextrose, ipratropium-albuteroL, [COMPLETED] Insert Indwelling Urethral [...] Enoc Armando Admit Date: 1261205 MR #: [id number] : 1945 Physicians: Ryley Jeter MD (Family); Ger Bansal DO (Referring) Assessment: Patient with 1. Respiratory failure 2. Suspicion for pneumonia 3. Possible congestive heart failure 4. Non-ST elevation MT. 5. History of COVID-19 infection. Plan: Continue patient on current therapy Continue patient on IV azithromycin Continue on ceftriaxone From [facility] 5 weeks ago patient was [...] the patient is stable. Previous x-ray at [facility] had shown congestive changes and edema [...] 97.9 F (36.6 C) SpO2: 97% Allergies: Oiuuvpu-lgi-wra reductase inhibitors Medications Reviewed. Current Facility-Administered Medications: [...] 0-30 Units, 0-30 Units, Subcutaneous, QAM AC, aMry Vargas MD ipratropium-albuteroL (DUO-NEB) 0.5-2.5 mg/3 [...] excoriations Musculoskeletal: No joint swelling, non tender RECRUITER SPECIALIST: Awake, and Ox3 Wound: No Osborne Catheter: None IV Access: yes I reviewed Medications. I reviewed Labs. XR Chest 1 View Final Result Bilateral infrahilar patchy opacities, concerning for pneumonia. Identify Workstation ID: [id number] Echocardiogram complete (Results Pending) [...] Benitez MD - 11/29/2023 1:37 PM EST [facility] PROGRESS NOTE Assessment and Plan Enoc Armando is a 77 y.o. male patient of Ryley Jeter MD with history of HTN, HLD, DM Type I, CKD, COPD, chronic hypoxemic respiratory failure who presented to [facility] with respiratory distress . Severe Sepsis Present [...] Enoc Armando Admit Date: 11/27/2023 MR #: [id number] : 1945 Current location: [facility] Physicians: Ryley Jeter MD (Family); Britton Geiger [...] CHF, hypertension, hyperlipidemia, emphysema who presented to [facility] emergency department with a complaint [...] T CO2 17. He was transferred to [facility] for further evaluation and treatment. At [...] platelet count 220,000 Allergies: Allergies Allergen Reactions Jdwnisa-Ydl-Dgo Reductase Inhibitors Muscle cramps Home Medications: Outpatient [...] (PF) 5 mL Intravenous Q8H [facility] acetaminophen, dextrose, heparin, ipratropium-albuteroL, [COMPLETED] Insert Indwelling [...] General Cardiology Inpatient Follow-up Heart & Vascular [facility] 11/28/2023 Iraida Alvarado CNP [facility] Patient: Enoc Armando Date of : 1945 [...] - EKG showed SR suggest previous anterior MT, minor ST depression laterally similar to 10/11/2023 [...] is orient x 3. Telemetry: SR Allergies: Zvnoqaj-wpq-cso reductase inhibitors Review of Systems: The following [...] in Direct Patient Care: 15 Narrative: This equipment or machinery cleaner visited the pt., Enoc, while rounding. Introduced [...] of his children and grandchildren. 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 This equipment or machinery cleaner helped the pt explore their feelings about their hospitalization and identify sources of support. This equipment or machinery cleaner provided information about Pastoral Care services and how to contact a equipment or machinery cleaner. Pastoral Care team will remain available to support patient and family PRN. 11/28/23 1116 Visit Background Visit With Patient Visit By Staff Patch Machine Operator Visit Progression Introduction Visit Requested By Patch Machine Operator Initiated Visit Source Patch Machine Operator Initiated Visit Type Inpatient;Rounding Visit Circumstances and Events Routine Visit Visit Length (minutes) 15 Patient's Response to Pastoral Care Appeared to be well-engaged;Expressed Gratitude for Visit Visit Planning PRN;Pt aware to contact Patch Machine Operator as needed Spiritual Assessment Assessed during this [...] Facilitated Interventions Active Listening;Explained Role of the Patch Machine Operator;Explored thoughts/feelings associated with current hospitalization;Relationships Spiritual/Emotional Outcomes Appreciative;Gratitude Spiritual Plan of Care Continue Healing Process;Receive Spiritual Support Signature: Bipin Claros MDiv Staff Patch Machine Operator [facility] 24hr On-Call /Adriana On-Call Patch Machine Operator She/Her/Hers * Cintia Benitez MD - 11/28/2023 10:49 AM EST [facility] PROGRESS NOTE Assessment and Plan Enoc Armando is a 77 y.o. male patient of Ryley Jeter MD with history of HTN, HLD, DM Type I, CKD, COPD, chronic hypoxemic respiratory failure who presented to [facility] with respiratory distress . Severe Sepsis Present [...] Enoc Armando Admit Date: 1261205 MR #: [id number] : 1945 Physicians: Ryley Jeter MD (Family); Ger Bansal DO (Referring) Assessment: Patient with 1. Respiratory failure 2. Suspicion for pneumonia 3. Possible congestive heart failure 4. Non-ST elevation MT. 5. History of COVID-19 infection. Plan: Continue patient on current therapy Continue patient on IV azithromycin Continue on ceftriaxone From [facility] 5 weeks ago patient was [...] the patient is stable. Previous x-ray at [facility] had shown congestive changes and edema [...] 97.7 F (36.5 C) SpO2: 97% Allergies: Nlcfzyo-fue-akm reductase inhibitors Medications Reviewed. Current Facility-Administered Medications: acetaminophen (TYLENOL) tablet 650 mg, 650 mg, Oral, Q4H PRN, Norma Geiger CNP amLODIPine (NORVASC) tablet 10 mg, 10 mg, Oral, Daily, oNrma Geiger CNP, 10 mg at 843 aspirin [...] 0-150 mL/hr, Intravenous, PRN, Juanjo, Norma Tania, FILLER SPREADER Review of Systems: Constitutional: Negative for fatigue, [...] excoriations Musculoskeletal: No joint swelling, non tender RECRUITER SPECIALIST: Awake, and Ox3 Wound: No Osborne Catheter: [...] Bilateral infrahilar patchy opacities, concerning for pneumonia. [facility]/[employer] Workstation ID: [id number] Echocardiogram complete (Results Pending) [...] Enoc Armando Date of : 1945 Site: [facility] Provider: Prashant Cesar MD ASSESSMENT/PLAN: Enoc Armando 77 y.o. male transferred last night for resp distress, NSTEMI, hypergllycemia from [facility] Three weeks ago testing positive for Covid and then diagnosed with pneumonia. He has been treated as an outpatient with oral antibiotics. He has been experiencing intermittent midsternal chest pain for the past 3 weeks On arrival to [facility], he was placed on NIPPV with improvement [...] Azithromycin/Ceftriaxone Cardiovascular: Troponin 2361 BNP 16,730 Prior MT NSTEMI Cardiology consulted Heparin gtt Neuro/Muscular: Alert [...] Enoc Armando Admit Date: 11/27/2023 MR #: [id number] : 1945 Current location: [facility] Physicians: Ryley Jeter MD (Family); Britton Geiger [...] CHF, hypertension, hyperlipidemia, emphysema who presented to [facility] emergency department with a complaint [...] T CO2 17. He was transferred to [facility] for further evaluation and treatment. At [...] platelet count 220,000 Allergies: Allergies Allergen Reactions Samtnod-Qow-Hcn Reductase Inhibitors Muscle cramps Home Medications: Outpatient [...] Enoc Armando Date of : 1945 Site: [facility] Provider: Prashant Cesar MD ASSESSMENT/PLAN: Enoc Armando 77 y.o. male transferred last night for resp distress, NSTEMI, hypergllycemia from [facility] Three weeks ago testing positive for Covid and then diagnosed with pneumonia. He has been treated as an outpatient with oral antibiotics. He has been experiencing intermittent midsternal chest pain for the past 3 weeks On arrival to [facility], he was placed on NIPPV with improvement [...] 30% Cardiovascular: Troponin 2361 BNP 16,730 Prior MT NSTEMI Cardiology consulted Heparin gtt Neuro/Muscular: Alert [...] 0-10 mL of mixtureIntravenous Once in imaging [place], Norma Tania, FILLER SPREADER sodium chloride (PF) (NS) flush 5 mL [...] AM: Laboratory and Microbiology documented in this [id number] Consult note* Domenica Torre RN - 11/30/2023 [...] Balance - Static: Supervision, without UE support Technical Mgr - Standing Static: (no device) Standing Balance - Dynamic: Stand by assist, Contact guard assist (without device; sba/ supervisionwith rollator) Technical Mgr - Standing Dynamic: (trialed with and without rollator) Loss of Balance- Standing Dynamic: (left path deviation unsteadiness without device; no LOB with use of rollator and gait steadiness much improved.) Bed Mobility Rolling: Modified independent, Head of bed flat Supine to Sit: Modified independent, Head of bed flat Sit to Supine: (NT: pt up in chair post PT session) Technical Mgr: (none) Transfers Sit to Stand: Stand by assist Bed to Chair: Stand by assist, Contact guard assist (no device) Stand Pivot Transfers: Stand by assist, Contact guard assist (no device) Technical Mgr: (no AD) Additional Transfer Trial 2: Yes Sit to Stand Trial 2: Stand by assist (from chair with karin ue support) Technical Mgr Trial 2: BUE Additional Transfer Trial 3: Yes Sit to Stand Trial 3: Stand by assist (from locked rollator seat) Technical Mgr Trial 3: (locked rollator handles) Gait/Locomotion Gait [...] O2;) Prior Level of Function Level of Onyx - Transfers/Ambulation/Mobility: Independent with functional transfers, Independent with household ambulation, Independent with community ambulation (no AD for in home ambulation, intermitant use of cane in community for longer distances) Level of Onyx - ADLs: Independent Level of Onyx - Homemaking: ( takes care of all [...] Estimated Energy Needs Total Energy Estimated Needs: 9985-8328 kcal/d Method for Estimating Needs: 25-30 kcal/kg current wt Total Protein Estimated Needs: 65 g/d Method for Estimating Needs: 1 g/kg current wt Grazyna Obregon RDN, LD, CLC Office * Chaya Mayfield RN - 11/29/2023 9:30 AM ESTAssociated Order(s): IP CONSULT TO HAND GLOVE CLEANER Met with pt for diabetes education. States [...] 4:07 PM ESTAssociated Order(s): IP CONSULT TO HEAD SWAMPER See earlier consult * Gaudencio Pabon MD - 11/27/2023 2:50 PM EST Patient Name: Enoc Armando MR #: [id number] : 1945 Physicians: Ryley Jeter MD (Family); [...] COVID-19 infection, and then was admitted in [facility]. At that time he was having respiratory failure, and also was having bilateral infiltrates and was found with echocardiogram with ejection fraction of 35%. At [facility], patient was treated with BiPAP, [...] failure, [place] [address], And troponin of 9000. Patient also had [...] Information: I have reviewed the patient's allergies. Klydgsv-igo-vga reductase inhibitors Review of Systems: Review of [...] Bilateral infrahilar patchy opacities, concerning for pneumonia. Identify Workstation ID: [id number] Echocardiogram complete (Results Pending) [...] Possible congestive heart failure 4. Non-ST elevation MT. 5. History of COVID-19 infection. Plan. Continue patient on current therapy Patient currently on IV azithromycin Patient on ceftriaxone From [facility] 5 weeks ago patient was [...] the patient is stable. Previous x-ray at [facility] had shown congestive changes and edema [...] meaning can be extrapolated by contextual derivation. Mary Plata MD - 11/27/2023 7:20 AM ESTAssociated Order(s): IP CONSULT TO ENDOCRINOLOGY Patient ID: Patient Name: Enoc Armando Admit Date: 11/27/2023 MR #: [id number] : 1945 Current location: [facility] Physicians: Ryley Jeter MD (Family); Britton Geiger [...] CHF, hypertension, hyperlipidemia, emphysema who presented to [facility] emergency department with a complaint [...] T CO2 17. He was transferred to [facility] for further evaluation and treatment. At [...] platelet count 220,000 Allergies: Allergies Allergen Reactions Myonyzr-Ioy-Fdd Reductase Inhibitors Muscle cramps Home Medications: Outpatient [...] Q12H DIDI ipratropium-albuteroL 3 mL Inhalation Q4H [facility] metoprolol succinate 25 mg Oral Daily sodium [...] reviewed showed sinus rhythm suggest previous anterior MT minor ST depression laterally similar to 10/11/2023 [...] testing positive initially he was hospitalized at [facility] on BiPAP. Communication is a bit [...] Information: I have reviewed the patient's allergies. Ipmszen-kxj-azr reductase inhibitors Home Medications: Outpatient Medications as [...] Enoc Armando Admit Date: [id number] MR #: [id number] : 1945 Physicians: Ryley Jeter MD (Family); Ger Bansal DO (Referring) Julia Parker MD documented in this [id number] History and physical note* Norma Geiger CNP - 11/27/2023 3:12 AM EST [facility] [place] [facility] Patient Name: Enoc Armando : 1945 MR #: [id number] Admit Date: 11/27/2023 Physicians: Ryley Jeter MD (Family); Ger Bansal DO (Referring) Enoc Armando is a 77 y.o. male patient of Ryley Jeter MD with history of HTN, HLD, DM Type I, CKD, COPD, chronic hypoxemic respiratory failure who presented to [facility] with respiratory distress . Severe Sepsis Present [...] DKA protocol. Consult endocrinology, DM education, and commutator presser Essential Hypertension Dyslipidemia Continue amlodipine, metoprolol, ezetimibe [...] discomfort with associated diaphoresis. On arrival to [facility], he was placed on NIPPV with improvement [...] Information I have reviewed the patient's allergies. Zvgadnn-mfa-ztg reductase inhibitors Home Medications Home medications were [...] chronic hypoxemic respiratory failure who presented to [facility] with respiratory distress . Physical Examination General [...] COVID -Appreciate ID input documented in this [id number] Emergency department Note* Ger Bansal, - 11/26/2023 [...] difficulty breathing for 1 hr well logging mud analysis captain. EMS reports an O2 level in [...] ask the patient if he had a boring inspector and he said yes. Patient sees Dr. Small at [place] and is scheduled to have a stress test next week. Patient has denied any chest pain his entire time here. I did speak to the boring inspector on-call Dr. Parker and she agreed with a dose of IV Lasix and starting the patient on heparin which will be done. Patient is improved at present but we will continue to monitor the patient until a bed becomes available at [place]. The patient has been accepted by the [...] performed using a different testing methodology at [facility]. Direct result comparisons should only be [...] is performed using different testing methodology at [facility] than at [facility]. Direct result comparisons should only be [...] performed using a different testing methodology at [facility] than at other [facility]. Direct result comparisons should only be [...] TROPONIN I, HIGH SENSITIVITY ED Course & [facility] ED Course as of 11/27/23 0106 WedNov 26, 2023 2142 Twelve-lead EKG interpreted by myself at 2120 1 sinus tachycardia at 113 2 left axis deviation3 nonspecific ST-T wave changes [MS] 2249 Troponin I, High Sensitivity(!!): 3,473 [MS] ED Course User Index [MS] Ger Bansal DO Diagnoses as of 11/27/23 0106 NSTEMI (non-ST elevated myocardial infarction) ([facility]/HCC) MADONNA (acute kidney injury) ([facility]/HCC) Acute combined systolic and diastolic [...] Ghassan Tovar 11/26/2023 10:02 PM Dictation workstation: [id number] Medical Decision Making Patient will be transferred in stable condition to [facility] in [place]. Procedure Critical Care Performed by: Ger Bansal [...] 11/27/23 0119 documented in this [facility] Work Phone: 1(796) 486-341701-26-2024 Physician Emergency department Note* Ger Bansal DO [...] difficulty breathing for 1 hr well logging mud analysis captain. EMS reports an O2 level in [...] ask the patient if he had a boring inspector and he said yes. Patient sees Dr. Small at [place] and is scheduled to have a stress test next week. Patient has denied any chest pain his entire time here. I did speak to the boring inspector on-call Dr. Parker and she agreed with a dose of IV Lasix and starting the patient on heparin which will be done. Patient is improved at present but we will continue to monitor the patient until a bed becomes available at [place]. The patient has been accepted by the [...] performed using a different testing methodology at [facility] than [facility]. Direct result comparisons should only be [...] is performed using different testing methodology at [facility] than at [facility]. Direct result comparisons should only be [...] performed using a different testing methodology at [facility] than at other [facility]. Direct result comparisons should only be [...] of 11/27/23105 NSTEMI (non-ST elevated myocardial infarction) ([facility]/HCC) MADONNA (acute kidney injury) ([facility]/HCC) Acute combined systolic and diastolic [...] Ghassan Tovar 11/26/2023 10:02 PM Dictation workstation: [id number] Medical Decision Making Patient will be transferred in stable condition to [facility] in [place]. Procedure Critical Care Performed by: Ger Bansal [...] another facility Ger Bansal DO 11/27/23 0119 [facility] Work Phone: 1(720) 211-580901-02-2024 History of Present illness Narrative* Mary Vargas MD - 11/02/2023 4:50 PM EST Patient called and reported that he needs Humalog Rx changed due to formulary change. Rx mailed forAdmelog Solostar 15 ml, 11 refills. CD documented in this [id number] History of Present illness Narrative* Woo Small MD - 10/21/2023 9:00 AM EST General Cardiology New Patient Clinic Consult [facility] 10/21/2023 Woo Small MD [address] [place] [address] [facility] [id number] Patient: Enoc Armando Date [...] months (around 04/21/2024). Woo Small MD, [facility] Non-Invasive Cardiology [facility] P:[phone] F:[phone] History of Present Illness: Enoc Armando is a 77 y.o. man with a past medical history of insulin-dependent diabetes for 30 years, history of tobacco use, recent COVID infection with systolic dysfunction ejection fraction ranging from 35 to 45% who presents today to establish care. Patient states that he was critically ill andhospitalized at [facility], on BiPAP. Prior to hospitalization patient [...] 25.50 Types: Cigarettes Smokeless Tobacco Never Allergies: Cscuxwz-vcr-icw reductase inhibitors All of the information has [...] appropriate conversation Cardiovascular Studies: Echocardiogram reviewed from [facility], 10/11/2023 moderately decreased ejection fraction estimated [...] Total Cholesterol: 156 mg/dL documented in this [id number] Instructions* Patient Instructions* Luisa Easley RN - 10/21/2023 8:54 AM EST How to Contact your Care Team: Provider: Dr. Woo Small MD Clinic Nurse: Luisa Easley RN REFILLS: When in need for refills please call your care team or the office at [phone]. Please include medication name, pharmacy name, and [...] questions please contact your care team or [phone]. documented in this [id number] Nurse Note* Moody Gorman RN - 10/13/2023 7:25 PM EST Pt IVs removed intact, home O2 has just been delivered and family given instruction by [employer]. Pt leaving by wheelchair to discharge doors, daughter driving. [facility]2023 Nurse Note* Moody Gorman RN - [...] - 10/11/2023 10:00 AM EST , Alice ([phone]), called and requesting and update. Update provided. [...] RR 24. documented in this [facility] Work Phone: 1(957) 317-416612-13-2023 Nurse Note* Geni Lynne RN - 10/13/2023 3:56 PM EST Discharge instructions reviewed with pt. Printed and verbal education given on covid, chf, and homeoxygen use/safety. Pt verbalized understanding of all instructions. Walker rx written by dr rivera. Awaiting home oxygen set up. [facility]2023 Hospital Discharge instructions* Discharge Instr - [...] or approved for treating a specific patient. [employer]. and its affiliatesdisclaim any warranty or liability relating to this information or the use thereof. The use of thisinformation is governed by the Terms of Use, available at https://www.[employer]com/en/know/jjhgdeok-ozonotfxtmfry-dbbsj 2022 [employer]. and its affiliates and/or licensors. All rights [...] or approved for treating a specific patient. [employer]. and its affiliatesdisclaim any warranty or liability relating to this information or the use thereof. The use of thisinformation is governed by the Terms of Use, available at https://www.[employer].com/en/know/whbxsdtx-ezzpgytohwltz-ergsx Copyright 2022 [employer]. and its affiliates and/or licensors. All rights [...] Do not take any other prescription drugs, qlbw-gkv-ydfibop (OTC) drugs, herbals, or diet aids without [...] diet are needed? Ask your doctor or commutator presser what diet is best for you. The [...] or approved for treating a specific patient. [employer] and its affiliatesdisclaim any warranty or liability relating to this information or the use thereof. The use of thisinformation is governed by the Terms of Use, available at https://www.[employer]com/en/know/mujiphvu-dhwqnnhfljest-ofdui Copyright 2022 [employer] and its affiliates and/or licensors. All rights reserved. documented in this [facility] Work Phone: 1(485) 710-441412-13-2023 Miscellaneous Notes* Documentation Clarification Note - Vera Mari MD - 10/13/2023 3:06 PM EST PATIENT: ENOC ARMANDO : 1945 ADMIT DATE: 10/11/2023 1:08 AM DISCH DATE: RESPONDING PROVIDER #: [id number] PROVIDER RESPONSE TEXT: Sepsis with associated respiratory [...] hypoxia], hypertensive emergency, hyperglycemia, and elevated troponin. Risk Assessment Consultant consult documents Acute hypoxemic respiratory failure. Treatment: [...] current management. documented in this [facility] Work Phone: 1(124) 420-599412-13-2023 Note* Documentation Clarification Note - Vera Mari MD - 10/13/2023 3:06 PM EST PATIENT: ENOC ARMANDO : 1945 ADMIT DATE: 10/11/2023 1:08 AM DISCH DATE: RESPONDING PROVIDER #: [id number] PROVIDER RESPONSE TEXT: Sepsis with associated respiratory [...] hypoxia], hypertensive emergency, hyperglycemia, and elevated troponin. Risk Assessment Consultant consult documents Acute hypoxemic respiratory failure. Treatment: [...] by: VERA RIVERA MD 10/13/2023 3:05 PM [facility] Work Phone: 1(390) 745-873012-13-2023 History of Present illness Narrative* JENNIFER Almanza [...] Prior Function Per Pt/Caregiver Report Level of Onyx: Independent with ADLs and functional transfers, Independent [...] length Comments/Distance (ft) 1: 88ft Outcome Measures: [facility] Basic Mobility Turning from your back to [...] Bathroom Equipment: None Prior Function: Level of Onyx: Independent with ADLs and functional transfers, Independent [...] Function: Gross Grasp: Functional Coordination: Functional Outcome Measures:[facility] Daily Activity Putting on and taking off [...] 10/13/23 Expected End: 10/27/23 * Phylicia Reyes, PHARMACIST [facility], DNP - 10/13/2023 10:18 AM EST Subjective Data: Patient examined and denies any chest pain/pressure/discomfort, palpitations, worsening SOB, dizziness, or lower extremity edema. He does not currently follow with a Optical Engineering Technician. Overnight Events: None Objective Data: Last [...] result verified on 10/11/2023 0209 on specimen/case [id number] called with component [facility] for procedure Troponin I, High [...] 13-18 <7.5 7-12 <8.0 0- 6 7.5-8.5 [employer] [place] [employer]. Diabetes Care 33(S1), Nov 2009. 02/12/2023 08:57 AM 7.7 % Final Comment: Diagnosis of Diabetes-Adults Non-Diabetic: < or = 5.6% Increased risk for developing diabetes: 5.7-6.4% Diagnostic of diabetes: > or = 6.5% . Monitoring of Diabetes Age (y) Therapeutic Goal (%) Adults: >18 <7.0 Pediatrics: 13-18 <7.5 7-12 <8.0 0- 6 7.5-8.5 [employer] [place] [employer]. Diabetes Care 33(S1), Nov 2009. [...] Assessment Information (1): baseline creat 1.6-1.9 per merchandising coordinator; A1C 7.4 09/27, 7.6 8/l Nutrition Diagnosis [...] result verified on 10/11/2023 0209 on specimen/case [id number] called with component [facility] for procedure Troponin I, High [...] 13-18 <7.5 7-12 <8.0 0- 6 7.5-8.5 [employer]. Diabetes Care 33(S1), Nov 2009. 02/12/2023 08:57 AM 7.7 % Final Comment: Diagnosis of Diabetes-Adults Non-Diabetic: < or = 5.6% Increased risk for developing diabetes: 5.7-6.4% Diagnostic of diabetes: > or = 6.5% . Monitoring of Diabetes Age (y) Therapeutic Goal (%) Adults: >18 <7.0 Pediatrics: 13-18 <7.5 7-12 <8.0 0- 6 7.5-8.5 [employer]. Diabetes Care 33(S1), Nov 2009. [...] around 1.8,arthritis and smoking. Came to ED [facility] on 10/11/2023 complaining of shortness of breath [...] to discharge. If not possible, should have [facility] as an outpatient. - Due to [...] 10/11/2023 6:18:47 PM Transthoracic Echo (TTE) Complete [place] [id number], TRANSTHORACIC ECHOCARDIOGRAM REPORT Patient Name: ENOC Titus TR Reading Physician: [id number] Jose Enrique Molina MD Study Date: 10/11/2023 Ordering Provider: [id number] VERA RIVERA MRN/PID: [id number] Fellow: Nurse: Jana See RN Date of /Age: 2 1945 / 77 years Shine Worker: Cecilio Gabriel RDCS Gender: M Additional Staff: Height: 170.18 cm Admit Date: Weight: 71.67 kg Admission Status: Inpatient - Routine BSA: 1.83 m2 Department Location: [address]-ICU Blood Pressure: 141 /71 mmHg Study Type: TRANSTHORACIC ECHO (TTE) COMPLETE Diagnosis/ICD: Acute on chronic systolic (congestive) heart failure (CHF)-I50.23 CPT Codes: Echo Complete w Full Doppler-53588 Study Detail: The following Echo studies were [...] LA Area A2C: 16.2 cm2 LA Major Randolph A4C: 5.3 cm LA Major Randolph A2C: 5.0 cm LA Volume Index: 23.9 ml/m2 LA Vol A4C: 43.7 ml LA Vol A2C: 43.3 ml LV SYSTOLIC FUNCTION BY 2D PLANIMETRY (MOD): Normal Ranges: EF-A4C View: 45.6 % (>=55%) EF-A2C View: 40.9 % EF-Biplane: 44.2 % AORTIC VALVE: Normal Ranges: LVOT Diameter: 1.80 cm (1.8-2.4cm) RIGHT VENTRICLE: RV Basal 3.49 cm RV Mid 2.45 cm RV Major 7.8 cm [id number] Jose Enrique Molina MD Electronically signed on 10/11/2023 at 9:43:19 AM Final XR chest 1 view Narrative: Interpreted By: Kahlil Fagan, STUDY: XR CHEST 1 VIEW; 10/11/2023 1:30 am INDICATION: Signs/Symptoms:Cough. COMPARISON: Chest radiograph 11/04/2012 ACCESSION NUMBER(S): [id number] ORDERING CLINICIAN: AURY RUOSE FINDINGS: SUPPORT DEVICES: None. CARDIOMEDIASTINAL SILHOUETTE: Cardiomediastinal [...] Kahlil Fagan 10/11/2023 1:33 AM Dictation workstation: [id number] Physical Exam Constitutional: Appearance: Normal appearance. HENT: [...] on sliding scale insulin. A1c 7.4 appreciate action finisher input. Oxygen as tolerated, currently liters. PT, OT consult for generalized weakness. Vitamin D, zinc DVT prophylaxis on heparin. CODE STATUS full. Disposition in 24 to 48 hours. Total time spent 35 minutes. Vera Rivera MD * Consuelo Fischer RN - 10/11/2023 2:04 PM EST 10/11/23 0539 Discharge Planning Living Arrangements Spouse/significant other Support [...] Fischer BSN/RN-TCC documented in this [facility] Work Phone: 1(498) 750-384312-13-2023 Hospital course Narrative* Vera Mari MD - [...] Your Medications These medications were sent to [facility] [address] [address] metoprolol succinate XL 25 mg 24 hr tablet These medications were sent to [facility] [address] [place] [address] Hours: 8 AM to 5:30 Mon-Fri, 8 [...] up with home oxygen. Patientalso was sore action finisher discharged his dexamethasone and antibiotics as cultures seems to be negative. Clinically stable. Patient also had elevated troponin secondary due to above seen by cardiology, Dr. De Dios, started on metoprolol, aspirin initially which which can be changed to 81 mg daily. Jaundice and Zetia also were started. Patient also has seen Dr. Albert, merchandising coordinator for acute on chronic kidney disease secondary [...] Department Center 02/24/2024 1:45 PM Maricruz Albert, PHARMACIST [facility] [id number] [facility] Dr. Albert, nephrology in [address] De Dios, cardiology in 2 to 4 weeks. Total discharge time 40 minutes. Vera Rivera MD documented in this [facility] Work Phone: [phone]) 167-346412-13-2023 Nurse Note* Moody Gorman RN - 10/13/2023 12:27 PM EST Pt is AAO. He is using his call light today when he wants to use the bathroom. He has had loose stools, but less frequent. [facility] Work Phone: [phone]) 577-601012-12-2023 Nurse Note* Moody Gorman RN - 10/12/2023 5:25 PM EST Pt is alert to situation at this time and able to explain his diagnosis, but still impulsive when moving and unsteady. [facility] Work Phone: [phone]) 816-280612-12-2023 Nurse Note* Moody Gorman RN - 10/12/2023 4:42 PM EST Pt continues to try and leave the bed and chair without his call light. When asked what he needs orwhere he wants to go, pt is unable to articulate his motivation except the general desire to move around. Repeated re-education is not working. [facility] Work Phone: [phone] 449-611912-12-2023 Nurse Note* Moody Gorman RN - 10/12/2023 3:45 PM EST Answered chair alarm. Pt is becoming increasingly confused and restless in general. He is aware of himself and other people, but is becoming impulsive in getting out of bed or his chair. Pt ambulatedto the bathroom, O2 increased to 5L for movement per RT. Pt assisted back to bed, bed alarm activated. [facility] Work Phone: [phone]) 784-683112-12-2023 Nurse Note* Moody Gorman RN - 10/12/2023 8:00 AM EST Pt is AAO, uses his call light appropriately. Pt currently on RA. Pt c/o weakness in his legs, but is able to sit up at the edge of the bed and walk with a walker to lean on for stability. [facility] Work Phone: 1([phone]) 203-723412-12-2023 Plan of care note* Care Plan - [...] to address these barriers include repeated re-orientation. [facility] Work Phone: [phone]) 236-934712-12-2023 Plan of care note* Care Plan - Jody Ball RN - 10/12/2023 5:59 AM EST The clinical goals for the shift include Blood sugar will return to normal limits by the end of theshift Over the shift, Pt tolerated BIPAP well. No signs of respiratory distress. [facility]12-11-2023 Consult note* Tyrone Zimmerman MD - [...] around 1.8,arthritis and smoking. Came to ED [facility] on 10/11/2023 complaining of shortness of breath [...] result verified on 10/11/2023 0209 on specimen/case [id number] called with component [facility] for procedure Troponin I, High [...] 13-18 <7.5 7-12 <8.0 0- 6 7.5-8.5 [employer] [place] [employer]. Diabetes Care 33(S1), Nov 2009. 02/12/2023 08:57 AM 7.7 (A) % Final Comment: Diagnosis of Diabetes-Adults Non-Diabetic: < or = 5.6% Increased risk for developing diabetes: 5.7-6.4% Diagnostic of diabetes: > or = 6.5% . Monitoring of Diabetes Age (y) Therapeutic Goal (%) Adults: >18 <7.0 Pediatrics: 13-18 <7.5 7-12 <8.0 0- 6 7.5-8.5 [employer] [place] [employer]. Diabetes Care 33(S1), Nov 2009. [...] Family history unknown: Yes Allergies: Prednisone and Lxqvgdk-gfb-wcc reductase inhibitors Inpatient Medications: Scheduled medications Medication [...] around 1.8,arthritis and smoking. Came to ED [facility] on 10/11/2023 complaining of shortness of breath [...] to discharge. If no t possible, have [facility] as an outpatient. - Due to [...] Code Status: Full Code Tyrone Zimmerman MD [facility] Work Phone: 1([phone]) 232-773912-11-2023 Consult note* Tyrone Zimmerman MD - 10/11/2023 [...] around 1.8,arthritis and smoking. Came to ED [facility] on 10/11/2023 complaining of shortness of breath [...] result verified on 10/11/2023 0209 on specimen/case [id number] called with component [facility] for procedure Troponin I, High [...] 13-18 <7.5 7-12 <8.0 0- 6 7.5-8.5 [employer] [place] [employer]. Diabetes Care 33(S1), Nov 2009. 02/12/2023 08:57 AM 7.7 (A) % Final Comment: Diagnosis of Diabetes-Adults Non-Diabetic: < or = 5.6% Increased risk for developing diabetes: 5.7-6.4% Diagnostic of diabetes: > or = 6.5% . Monitoring of Diabetes Age (y) Therapeutic Goal (%) Adults: >18 <7.0 Pediatrics: 13-18 <7.5 7-12 <8.0 0- 6 7.5-8.5 [employer] [place] [employer]. Diabetes Care 33(S1), Nov 2009. [...] has a past medical history of Diabetes ([facility]/HCC). Past Surgical History: He has no past surgical history on file. Social History: He reports that he has been smoking cigarettes. He has never used smokeless tobacco. He reports that he does not drink alcohol and does not use drugs. Family History: Family History Family history unknown: Yes Allergies: Prednisone and Whjxhfp-nzm-ydi reductase inhibitors Inpatient Medications: Scheduled medications Medication [...] around 1.8,arthritis and smoking. Came to ED [facility] on 10/11/2023 complaining of shortness of breath [...] to discharge. If no t possible, have [facility] as an outpatient. - Due to [...] 12:13 PM ESTAssociated Order(s): IP CONSULT TO HEAD SWAMPER Reason For Consult Acute respiratory failure History [...] has a past medical history of Diabetes ([facility]). Surgical History He has no past surgical history on file. Social History He reports that he has been smoking cigarettes. He has never used smokeless tobacco. He reports that he does not drink alcohol and does not use drugs. Family History Family History Family history unknown: Yes Allergies Prednisone and Hgjjtdv-vht-xsc reductase inhibitors Review of Systems A full [...] Albert DO documented in this [facility] Work Phone: 1(530) 571-751612-11-2023 Consult note* Ayanna Albert DO - 10/11/2023 12:13 PM ESTAssociated Order(s): IP CONSULT TO HEAD SWAMPER Reason For Consult Acute respiratory failure History [...] has a past medical history of Diabetes ([facility]). Surgical History He has no past surgical history on file. Social History He reports that he has been smoking cigarettes. He has never used smokeless tobacco. He reports that he does not drink alcohol and does not use drugs. Family History Family History Family history unknown: Yes Allergies Prednisone and Meclfjd-eym-ssa reductase inhibitors Review of Systems A full [...] procedures Principal Problem: COVID-19 Ayanna Albert DO [facility] Work Phone: 1(955) 354-754212-11-2023 Plan of care note* Care Plan - Vera Mari MD - 10/11/2023 11:49 AM EST Patient's reviewed. Currently on 5 L of oxygen by nasal cannula, sitting in bed. wants him to be full code with DNI. Continue with current management. [facility] Work Phone: 1(643) 263-890312-11-2023 Nurse Note* Geni Wall RN - 10/11/2023 10:00 AM EST , Alice ([phone]), called and requesting and update. Update provided. She is Enoc's POA and requests in the event of cardiac he receive CPR and life sustaining medications. She is unsure if she wants him intubated and wants more time to think about it. She reported she will be visiting [place] today around 11am. [facility]12-11-2023 Nurse Note* Zoila Mota RN - 10/11/2023 [...] Patient currently sleeping, HR 112, RR 24. [facility] Work Phone: [phone]) 851-751812-11-2023 History and physical note* Praful Pineda MD [...] Family history unknown: Yes Allergies Prednisone and Bphmxll-pqj-rak reductase inhibitors Medications Prior to Admission Medication [...] Straw, Yellow Appearance, Urine Clear Clear Specific Beacon, Urine 1.014 1.005 - 1.035 pH, Urine [...] Signs/Symptoms:Cough. COMPARISON: Chest radiograph 11/04/2012 ACCESSION NUMBER(S): [id number] ORDERING CLINICIAN: AURY ROUSE FINDINGS: SUPPORT DEVICES: [...] Kahlil Fagan 10/11/2023 1:33 AM Dictation workstation: [id number] Assessment/Plan 77-year-old male, smoker, with a past [...] are not fully corrected) Praful Pineda MD [facility] Work Phone: [phone]) 268-853912-11-2023 History and physical note* Praful Pineda MD [...] History Past Medical History: Diagnosis Date Diabetes ([facility]) Pertinent medical history also documented in [...] Family history unknown: Yes Allergies Prednisone and Sghyjhx-hxt-swr reductase inhibitors Medications Prior to Admission Medication [...] Straw, Yellow Appearance, Urine Clear Clear Specific Beacon, Urine 1.014 1.005 - 1.035 pH, Urine [...] Signs/Symptoms:Cough. COMPARISON: Chest radiograph 11/04/2012 ACCESSION NUMBER(S): [id number] ORDERING CLINICIAN: AURY ROUSE FINDINGS: SUPPORT DEVICES: [...] Kahlil Fagan 10/11/2023 1:33 AM Dictation workstation: [id number] Assessment/Plan 77-year-old male, smoker, with a past [...] Pineda MD documented in this [facility] Work Phone: 1([phone]) 118-926712-11-2023 Emergency department Note* Aury Rouse, - 10/11/2023 [...] ED and establish an IV.Patient admits to 82-kuye-ikgd history of cigarette use and currently smokes 1 pack/day. Activity makes his symptoms worse rest helps to some extent. History provided by: EMS personnel and patient blanking press operator used: No Physical Exam Vitals and nursing note reviewed. Constitutional: General: He is awake. He is in acute distress. Appearance: Normal appearance. He is overweight. He is ill-appearing. HENT: Head: Normocephalic and atraumatic. Right Ear: External ear normal. Decreased hearing noted. Left Ear: External ear normal. Decreased hearing noted. Nose: Congestion and rhinorrhea present. Rhinorrhea is clear. Mouth/Throat: Lips: Regina. Mouth: Mucous membranes are moist. Pharynx: Oropharynx [...] specimens andhas been validated for use at [facility]. Negative results do not preclude COVID-19 infections [...] in ng/mL Fibrinogen Equivalent Units (FEU). Per network cabler's instructions for use, a value of less [...] performed using a different testing methodology at [facility] than at other [facility]. Direct result comparisons should [...] performed using a different testing methodology at [facility] than at other [facility] Direct result comparisons should only be [...] is performed using different testing methodology at [facility] than at other [facility]. Direct result comparisons should only be [...] Color, Urine Yellow Appearance, Urine Clear Specific Beacon, Urine 1.014 pH, Urine 5.0 Protein, Urine [...] and has been validated for use at [facility]. Negative results do not preclude Influenza A/B infections, and should not be used as the sole basis for diagnosis, treatment, or other management decisions. IfInfluenza A/B and RSV PCR results are negative, testing for Parainfluenza virus, Adenovirus and Metapneumovirus is routinely performed for [facility] pediatric oncology and intensive care inpatients, and isavailable on other patients by placing an add-on request. RSV PCR - Normal RSV PCR Not Detected Narrative: This assay is an FDA-cleared, in vitro diagnostic nucleic acid amplification test for the detectionof RSV from nasopharyngeal specimens, and has been validated for use at [facility]. Negative results do not preclude RSV infections, and should not be used as the sole basis for diagnosis, treatment, or other management decisions. If Influenza A/B and RSV PCR results are negative, testing for Parainfluenza virus, Adenovirus and Metapneumovirus is routinely performed for pediatric oncology and intensive care inpatients at [facility], and is available [...] Abnormality Status --------- ------ Urinalysis with Reflex M...[[id number]] Abnormal Final result Extra Urine Orosco Tube[[id number]] Final result Please view results for these tests on the individual orders. TROPONIN SERIES- (INITIAL, 1 HR) Narrative: The following orders were created for panel order Troponin I Series, High Sensitivity (0, 1 HR). Procedure Abnormality Status --------- ------ Troponin I, High Sensiti...[[id number]] Abnormal Final result Troponin, High Sensitivi...[[id number]] Abnormal Final result Please view results for [...] Kahlil Fagan 10/11/2023 1:33 AM Dictation workstation: [id number] Critical Care Performed by: Aury Rouse DO [...] a little. documented in this [facility] Work Phone: [phone]) 762-169412-11-2023 Emergency department Triage note* VANDANA Cosby - 10/11/2023 1:08 AM EST Pt brought in via EMS for fevers and chills. Pt reports being ill for the last 2-3 days. Pt states that he has been having fevers, chills, weakness, fatigue, headaches, body aches with some SOB. Pt was given a breathing treatment in route and states that it did help a little. [facility] Work Phone: [phone] Physician Emergency department Note* Aury Rouse DO [...] ED and establish an IV.Patient admits to 27-oyew-fbfu history of cigarette use and currently smokes 1 pack/day. Activity makes his symptoms worse rest helps to some extent. History provided by: EMS personnel and patient blanking press operator used: No Physical Exam Vitals and nursing note reviewed. Constitutional: General: He is awake. He is in acute distress. Appearance: Normal appearance. He is overweight. He is ill-appearing. HENT: Head: Normocephalic and atraumatic. Right Ear: External ear normal. Decreased hearing noted. Left Ear: External ear normal. Decreased hearing noted. Nose: Congestion and rhinorrhea present. Rhinorrhea is clear. Mouth/Throat: Lips: Regina. Mouth: Mucous membranes are moist. Pharynx: Oropharynx [...] specimens andhas been validated for use at [facility]. Negative results do not preclude COVID-19 infections [...] in ng/mL Fibrinogen Equivalent Units (FEU). Per network cabler's instructions for use, a value of less [...] performed using a different testing methodology at [facility] than at other [facility]. Direct result comparisons should [...] performed using a different testing methodology at [facility] than at other [facility]. Direct result comparisons should only be [...] is performed using different testing methodology at [facility] than at other [facility]. Direct result comparisons should only be [...] Color, Urine Yellow Appearance, Urine Clear Specific Beacon, Urine 1.014 pH, Urine 5.0 Protein, Urine [...] and has been validated for use at [facility]. Negative results do not preclude Influenza A/B infections, and should not be used as the sole basis for diagnosis, treatment, or other management decisions. IfInfluenza A/B and RSV PCR results are negative, testing for Parainfluenza virus, Adenovirus and Metapneumovirus is routinely performed for [facility] pediatric oncology and intensive care inpatients, and isavailable on other patients by placing an add-on request. RSV PCR - Normal RSV PCR Not Detected Narrative: This assay is an FDA-cleared, in vitro diagnostic nucleic acid amplification test for the detectionof RSV from nasopharyngeal specimens, and has been validated for use at [facility]. Negative results do not preclude RSV infections, and should not be used as the sole basis for diagnosis, treatment, or other management decisions. If Influenza A/B and RSV PCR results are negative, testing for Parainfluenza virus, Adenovirus and Metapneumovirus is routinely performed for pediatric oncology and intensive care inpatients at [facility], and is available [...] Abnormality Status --------- ------ Urinalysis with Reflex M...[[id number]] Abnormal Final result Extra Urine Orosco Tube[[id number]] Final result Please view results for these tests on the individual orders. TROPONIN SERIES- (INITIAL, 1 HR) Narrative: The following orders were created for panel order Troponin I Series, High Sensitivity (0, 1 HR). Procedure Abnormality Status --------- ------ Troponin I, High Sensiti...[[id number]] Abnormal Final result Troponin, High Sensitivi...[[id number]] Abnormal Final result Please view results for [...] Kahlil Fagan 10/11/2023 1:33 AM Dictation workstation: [id number] Critical Care Performed by: Aury Rouse DO [...] part of lung Aury Rouse DO 10/12/23514 [facility] Work Phone: 1(885) 282-675512-08-2023 History of Present illness Narrative* Mary Vargas MD - 10/08/2023 11:36 AM EST Images from the original note were not included. Patient ID: Enoc Armando is a 77 y.o. male Subjective: HPI: Enoc Armando presents for follow-up of Type 1 diabetes The initial diagnosis of diabetes was made28 years ago in 1994. Disease course has been stable. Mr. Amrando is a 77-year-old male patient who presents [...] being taken. Patient does not see a business systems technician. Eye exam is current. Currently taking: No [...] bedside for hypoglycemia at night. 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 Had bilat cataract extraction Dr. Lopez. Sees Dr. Browne in [place] every year routinely.Has blurred vision with low [...] Call if BG consistently <70 or >250. [phone] Continue to check blood sugar 3 times [...] Metabolic Panel Hemoglobin A1c Electronically signed by aMry Vargas MD 10/10/23 8:04 PM documented in this [id number] Evaluation + Plan note* Assessment & Plan Note - Ayanna Albert DO - 08/25/2023 2:39 PM EDTAssociated Problem(s): CKD (chronic kidney disease) Doing well with DM HTN well controlled Sees Endocrinology. Has Type 1 DM On Statin Not on nephrotoxins [facility] Work Phone: 1(241) 315-456010-25-2023 Miscellaneous Notes* Assessment & Plan Note - Ayanna Albert DO - 08/25/2023 2:39 PM EDTAssociated Problem(s): CKD (chronic kidney disease) Doing well with DM HTN well controlled Sees Endocrinology. Has Type 1 DM On Statin Not on nephrotoxins [facility] 1([phone]) 615-219710-25-2023 History of Present illness Narrative* Ayanna Albert [...] Nicotine Abuse documented in this [facility] Work Phone: 1(244) 402-107404-21-2023 History of Present illness Narrative* Paty Ortega, [...] being taken. Patient does not see a business systems technician. Eye exam is current. Currently taking: No [...] at HS. PLAN: See below. 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 Had bilat cataract extraction Dr. Lopez. Sees Dr. Browne in [place] every year routinely. Nephropathy: Positive Creat: 1.09; [...] Call if BG consistently <70 or >250. [phone] Continue to check blood sugar 4 times [...] CNP 02/19/23 10:25 AM documented in this [id number] History of Present illness Narrative* Paty Ortega [...] being taken. Patient does not see a business systems technician. Eye exam is current. Currently taking: No [...] Reduce lunch and HS insulin. 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 Had bilat cataract extraction Dr. Lopez. Sees Dr. Browne in [place] every year routinely. Nephropathy: Positive Creat: 1.09; [...] Call if BG consistently <70 or >250. [phone] Continue to check blood sugar 4 times [...] CNP 10/19/22 10:25 AM documented in this [id number] History of Present illness Narrative* Paty Ortega [...] being taken. Patient does not see a business systems technician. Eye exam is current. Currently taking: No [...] Reduce lunch and HS insulin. 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 Had bilat cataract extraction Dr. Lopez. Sees Dr. Browne in [place] every year routinely. Nephropathy: Positive Creat: 1.09; [...] Call if BG consistently <70 or >250. [phone] Continue to check blood sugar 4 times [...] MD 06/19/22 11:20 PM documented in this [id number] History of Present illness Narrative* Mary Vargas [...] being taken. Patient does not see a business systems technician. Eye exam is current. Currently taking: No [...] Reduce lunch and HS insulin. 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 Had bilat cataract extraction Dr. Lopez. Sees Dr. Browne in [place] every year routinely. Nephropathy: Positive Creat: 1.09; [...] to check stenosis. To be done in [place] office. 2. Education: Reviewed ABCs of diabetes [...] Call if BG consistently <70 or >250. [phone] Continue to check blood sugar 4 times [...] MD 02/13/22 11:20 PM documented in this [id number] History of Present illness Narrative* Paty Ortega, FILLER SPREADER - 10/13/2021 2:10 PM EST Images from [...] being taken. Patient does not see a business systems technician. Eye exam is current. Currently taking: No [...] HS. PLAN: See below. 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 Exam within last 12 months: yes Date: 10/16/20. Had bilat cataract extraction Dr. Lopez. Sees Dr. Browne in [place] every year routinely. Nephropathy: Negative Creat: 1.08; [...] Call if BG consistently <70 or >250. [phone] Continue to check blood sugar 4 times [...] CNP 10/13/21 2:55 PM documented in this [id number] History of Present illness Narrative* Paty Ortega [...] being taken. Patient does not see a business systems technician. Eye exam is current. Currently taking: No [...] HS. PLAN: See below. 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 Exam within last 12 months: yes Date: 10/16/20. Had bilat cataract extraction Dr. Lopez. Sees Dr. Browne in [place] every year routinely. Nephropathy: Negative Creat: 1.08; [...] Call if BG consistently <70 or >250. [phone] Continue to check blood sugar 4 times [...] CNP 06/20/21 2:55 PM documented in this [id number] History of Present illness Narrative* Mary Vargas [...] being taken. Patient does not see a business systems technician. Eye exam is current. Currently taking: No [...] HS. PLAN: See below. 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 Exam within last 12 months: yes Date: 10/16/20. Had bilat cataract extraction Dr. Lopez. Sees Dr. Browne in [place] every year routinely. Nephropathy: Negative Creat: 1.08; [...] Call if BG consistently <70 or >250. [phone] Continue to check blood sugar 4 times [...] encounterOhioHealthDischarge summary Author John Brandon [facility] Note Date/Time April 03, 2025 4:11a m [facility] Medical Records Department [address] [place] [address] Emergency Department Summary 04/03/25 MR#: [id number] Acct: [id number] Name: TRENOC E Rep #:[id number] : 1945 79 From: John Ramirez PCP: [...] AdvReac Other Verified 04/03/25 00:16 (Glucocorticoids) (steroids) Nxspnmn-Jso-Whb Reductase AdvReac Other Verified 04/03/25 00:16 Inhibitor [...] Consults: internal medicine only sees Dr. Hwang) [facility] Narrative: The patient was initially tachycardic, [...] to ICU This note was generated with Tickade dictation software. It may contain incorrectwords, spelling, [...] 76.4 H Lymph % (Auto) 13.5 L [place] % (Auto) 7.0 Eos % (Auto) 1.9 [...] congestion and/or pneumonia. [facility] Discharge Plan Triage Chief Complaint: Shortness of [...] MD [Primary Care Provider] - Print Language: Qatari What to do if you have Problems For any increased pain, shortness of breath, bleeding, nausea or vomiting, chestpain, or any unexpected problems, contact your Primary Care Provider. Call [facility] ([phone]) or report to the closest Emergency Room. Call 911 if necessary. 04/03/251 <Electronically signed by John Brandon DO> Cosigner Signature (if applicable): CC: Dr. Ryley Jeter MD ~ Signed [facility] Work Phone: Discharge summary Author [facility] Note Date/Time April 10, 2025 5:09 pm [facility] Medical Records Department [address] [place] [address] Instructions for Home/Discharge Instructions 04/10/25 1527 MR#: [id number] Acct: [id number] Name: ENOC ARMANDO Rep #:[id number] : 1945 79 From: Grace Arnold MD [...] Arnold MD>Grace Arnold MD CC: Dr. Dyana Hawng MD; Dr. Ryley Jeter MD; Dr. Denisha Thompson MD; Dr.Michael Adrian MD; Dr. Grace Arnold MD; Dr. Jose Moore MD; Dr. Smooth Luis MD ~ Signed [facility] Work Phone: Discharge summary Author Arnulfo [facility] Note Date/Time April 19, 2025 3:48 am [facility] Medical Records Department [address] [place] [address] Emergency Department Summary 04/19/25 MR#: [id number] Acct: [id number] Name: ENOC ARMANDO Rep #:[id number] : 1945 79 From: Arnulfo Jose DO [...] but denies any formal diagnosis of COPD [facility] Medical History Non-STEMI (non-ST elevated myocardial [...] AdvReac Other Verified 04/03/25 00:16 (Glucocorticoids) (steroids) Jnjfejc-YIQ-AtN Reductase AdvReac Other Verified 04/03/25 00:16 Inhibitor (Bbtyqlz-Hdh-Wej Reductase Inhibitor) Family History Mother COPD (chronic [...] 82.3 H Lymph % (Auto) 10.0 L [place] % (Auto) 5.7 Eos % (Auto) 1.0 [...] Magnesium 2.3 [place] [address] H Procalcitonin 0.10 POC Glucose 437 H Radiography Diagnostic Testing: Clinical Impression(s) from Imaging Studies Chest X-Ray 04/19/25 01:00 IMPRESSION: Increased mild bilateral pleural effusions. Increased passive atelectatic airspace disease of the lower lobes. Increased pulmonary venous congestion and interstitial edema. Enlarged cardiac silhouette. Reading Location: [place] [address] Chest x-ray as interpreted by the emergency [...] Chronic anemia Disposition Disposition: Acute Care Hospital [facility] What to do if you have Problems For any increased pain, shortness of breath, bleeding, nausea or vomiting, chestpain, or any unexpected problems, contact your Primary Care Provider. Call [facility] ([phone]) or report to the closest Emergency Room. Call 911 if necessary. 04/19/25 0348 <Electronically signed by Arnulfo Jose DO> Cosigner Signature (if applicable): CC: Dr. Ryley Jeter MD ~ Signed [facility] Work Phone: Discharge summary Author Malika Fonseca [facility] Note Date/Time April 22, 2025 1:13 pm [facility] Medical Records Department [address] [place] [id number] Discharge Summary 04/22/25 1301 MR#: [id number] Acct: [id number] Name: ENOC ARMANDO Rep #:[id number] : 1945 79 From: Malika Fonseca DO PCP: Dr. Ryley Jeter MD Status:ADM IN Location: [place] [address] Providers Date of Admission: 04/19/25 Primary Care [...] Referrals / Follow Up: [facility] [Provider Group] - Within 1 Month Ryley Jeter MD [Primary Care Provider] - Within 2 Weeks Disposition Disposition (needs filled in before D/C Order can be placed): Home, Self Care Charges/Coding Visit Charges Inpatient E&M: 86497 Disch Hosp >30min 04/22/25 1313 <Electronically signed by Malika Fonseca DO> Cosigner Signature (if applicable): CC: Dr. Ryley Jeter MD; Dr. 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- Primary Dyslipidemia Other and unspecified hyperlipidemia Congestive heart failure, unspecified HF chronicity, unspecified heart failure type (HCC) [facility] [facility] Work Phone: Evaluation note* Diagnosis NSTEMI (non-ST elevated myocardial infarction) ([facility])- Primary Acute myocardial infarction, subendocardial infarction, episode of care unspecified MADONNA (acute kidney injury) ([facility]) Acute combined systolic and diastolic congestive heart failure ([facility]) Type 1 diabetes mellitus with other specified complication ([facility]) documented in this encounter [facility] Work Phone: evaluation note* Diagnosis NSTEMI [...] diabetic neuropathy (Multi) documented in this encounter [facility] Work Phone: Evaluation note* Diagnosis Type [...] with diabetic neuropathy documented in this encounter [facility] Work Phone: Evaluation note* Diagnosis Type [...] [facility] Diagnosis 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- Primary documented in [...] of cerebral infarction 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- Primary Claudication in [...] with diabetic neuropathy documented in this encounter [facility] Work Phone: Evaluation note* Diagnosis Bilateral carotid artery stenosis Occlusion and stenosis of carotid artery without mention of cerebral infarction 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- Primary NSTEMI (non-ST elevated myocardial infarction) (HCC) Acute myocardial infarction, subendocardial infarction, episode of care unspecified Hospital discharge follow-up Other follow-up examination [facility] Bilateral carotid artery stenosis Occlusion and stenosis of carotid artery without mention of cerebral infarction Type 1 diabetes mellitus with diabetic neuropathy (HCC)- Primary Pure hypercholesterolemia Essential hypertension Unspecified essential hypertension [facility] Diagnosis Onset Date Resolution Status Admit Date Acute hypoxic respiratory failure ac gui April 03, 2025 4:16am [facility] Work Phone: Evaluation note* Diagnosis Bilateral carotid artery stenosis Occlusion and stenosis of carotid artery without mention of cerebral infarction Type 1 diabetes mellitus with diabetic neuropathy (HCC) [facility] Diagnosis Stage 3b chronic kidney disease [...] with diabetic neuropathy documented in this encounter [facility] Work Phone: History and physical note Author Dyana Hwang [facility] Note Date/Time April 03, 2025 4:42a m [facility] Medical Records Department [address] [place] [address] H&P Exam - Hospitalist 04/03/25 0402 MR#: [id number] Acct: [id number] Name: ENOC ARMANDO Rep #:[id number] : 1945 79 From: Dyana Hwang MD PCP: Dr. Ryley Jeter MD Status:ADM IN [facility] - General General Date of Admission: 04/03/25 Date of Service: 04/03/25 Chief Complaint: Dyspnea. HPI Narrative The patient is an 79 y/o M w/ PMHx: CKD stage III unclear subtype per GFR trending, Chronic macrocytic anemia, HTN, HLD, Diabetes mellitus type II, BPH with obstructive pathology, Tobacco use who presents to the [facility] ED on 04/03/2025 with history of worsening [...] and sublingual nitroglycerin x 1. [facility] Medical History (Updated 04/03/25 @ 04:40 by [...] AdvReac Other Verified 04/03/25 00:16 (Glucocorticoids) (steroids) Qrqfxek-BRH-JhO Reductase AdvReac Other Verified 04/03/25 00:16 Inhibitor (Fgkqond-Rls-Mhx Reductase Inhibitor) Family History (Updated 04/03/25 @ [...] 76.4 H, Lymph % (Auto) 13.5 L, [place] % (Auto) 7.0, Eos % (Auto) 1.9, [...] possibly multifocal congestion and/or pneumonia. Reading Location: [place] [address] Chest CTA 04/03/25 02:34 IMPRESSION: Mild bilateral pleural effusions. Passive atelectatic airspace disease/airspace consolidations of the lower lobes. Bilateral chronic perihilar interstitial pulmonary thickening with associated mild multifocal ground-glass densities, possibly superimposed pneumonia. Mild diffuse spondylosis. No CT evidence of pulmonary embolus or aortic dissection. Reading Location: [place] [address] Assessment & Plan Assessment/Plan (1) Acute hypoxic respiratory failure: PLAN: Plan The patient is an 79 y/o M w/ PMHx: CKD stage III unclear subtype per GFR trending, Chronic macrocytic anemia, HTN, HLD, Diabetes mellitus type II, BPH with obstructive pathology, Tobacco use who presents to the [facility] ED on 04/03/2025 with history of worsening [...] any pulmonary embolus or aortic dissection, initial [id number] with repeat delta troponin 76. Will maintain [...] 16 minutes. Charges/Coding Visit Charges Inpatient E&M: 39894 Init Hosp L3 Procedures Hospitalists Procedures: 12458 Advncd Care Plan 30 Min 04/03/25 0442 <Electronically signed by Dyana Hwang MD> Cosigner Signature (if applicable): CC: Dr. Dyana Hwang MD; Dr. Ryley Jeter MD~ Signed [facility] Work Phone: History of Present illness Narrative* At least a 5 yr HX of LBP (previous HX of sciatica). No recent film studies have been done. He willbe a low fall risk. The patient will continue his therapy at [facility]. Physical findings include limited trunk ROM with discomfort. Continue with trunk mech trng, STW (needling), and core stability/ROM exercises. * Clinical Presentation: Stable and/or uncomplicated characteristics. * Level of Complexity: low * Problem List: activity limitations, ADLs/IADLs/self care skills, decreased functional level, decreased knowledge of HEP, decreased knowledge of precautions, fall risk, gait/locomotion, pain, range ofmotion/joint mobility and strength. [facility] Work Phone: History of Present illness NarrativePatient identified by name and date of . Patient demonstrated good understanding of exercises and stretching with cues to complete after instruction. He presented with palpable tension in gluts and QL and paraspinals that responded well to STW. [place] Work Phone: History of Present illness Narrative* [...] relief noted d/t tightness in LB. [facility] [place] Work Phone: History of Present illness Narrative* Tightness along the ITB and QL continues. * Palpable spams in both regions with with STW. * Fair trunk flexibility with SKTC. [place] Work Phone: History of Present illness NarrativePatient identified by name and date of . Patient was able to progress with several exercises this date with addition of teri disc and focus on maintain upright posture. He presented with increased muscle tension in IT band and QL this date.[facility] Work Phone: History of Present illness NarrativePatient identified by name and date of . Added IT band stretch this date and instructed for HEP due to palpable tension. Reviewed importance of HEP even if he feels sore to increased with ROM and decrease with muscle tension, he verbalized good understanding. Patient continues to present with palpable muscle tension/restrictions in his piriforms.[facility] [place] Work Phone: History of Present illness NarrativePatient identified by name and date of . Added IT band stretch this date and instructed for HEP due to palpable tension. Reviewed importance of HEP even if he feels sore to increased with ROM and decrease with muscle tension, he verbalized good understanding. Patient continues to present with palpable muscle tension/restrictions in his piriforms.[facility] Work Phone: History of Present illness NarrativePatient [...] and possible inclusion of trigger point dry needling.[facility] Work Phone: History of Present illness NarrativeSTW [...] not covering a TENS unit for the patient.[facility] Work Phone: reason for referral (narrative)* Consultation (Routine) - Authorized Specialty Diagnoses / Procedures Referred By Contac t Referred To Contact Nephrology Diagnoses Stage 3b chronic kidney disease (CMS/HCC) Procedures Follow Up In Nephrology Ayanna Albert DO [address] [place] [address] Referral ID Status Reason Start Date Expiration Date V isits Requested Visits Authorized [id number] Authorized 08/25/2023 08/24/2024 1 1 [facility] Work Phone: Reason for referral (narrative)* Consultation (Routine) - Authorized Specialty Diagnoses / Procedures Referred By Contzac t Referred To Contact Nephrology Diagnoses Stage 3b chronic kidney disease (Multi) Procedures Follow Up In Nephrology Maricruz Albert, PHARMACIST HOSPITAL-FILLER SPREADER, DNP [address] [place] [address] Referral ID Status Reason Start Date Expiration Date V isits Requested Visits Authorized [id number] Authorized 02/24/2024 02/23/2025 1 1 [facility] Work Phone: Reason for referral (narrative)No reason for referral [facility] Work Phone: Reason for visit Narrative* Initial Evaluation . lumbar DDD. * Referred by: Yuki [facility] Work Phone: Reason for visit Narrative* Auth/Cert Specialty Diagnoses / Procedures Referred By Jimy stacy Referred To Contact Diagnoses NSTEMI (non-ST elevated myocardial infarction) (HCC) NSTEMI Referral ID Status Reason Start Date Expiration Date Visits Re quested Visits Authorized [id number] 1 1 [facility] N[facility]ative* Auth/Cert (Routine) Specialty Diagnoses / Procedures Referred By Jimy stacy Referred To Contact Diagnoses Cardiovascular stress test abnormal Fatigue, unspecified type SOB (shortness of breath) Cardiovascular stress test abnormal [R94.39] Fatigue, unspecified type [R53.83] SOB (shortness of breath) [R06.02] Procedures Left Heart Cath Referral ID Status Reason Start Date Expiration Date Visits Re quested Visits Authorized [id number] 1 1 [facility] Instructions * Patient Instructions - Alexandra [...] Documents on File Type Date Recorded Patient Principal Web Developer Expl anation Advance Directives and Living Will Documents on File Type Date Recorded Patient Principal Web Developer Expl anation Advance Directives and Livin g Will 10/18/2020 1:33 PM Documents on File Type Date Recorded Patient Principal Web Developer Expl anation Advance Directives and Livin g Will 10/18/2020 1:33 PM Documents on File Type Date Recorded Patient Principal Web Developer Expl anation Advance Directives and Livin g Will 02/21/2021 3:38 PM Documents on File Type Date Recorded Patient Principal Web Developer Expl anation Advance Directives and Livin g Will 02/21/2021 3:38 PM Latest Code Status on File Code Status Date Activated Date Inactivated Comments Full Code 10/11/2023 5:02 AM Question Answer Comments Plan of Care: Code Status Discussion Completed Decision Maker: Patient Advance Directive Response Recorded Date/ Time Living Will Yes August 05 7:59am Power of Test Desk Trouble Locator Yes August 05 7:59am Latest Code Status [...] Documents on File Type Date Recorded Patient Principal Web Developer Expl anation Advance Directives and Livin [...] Documents on File Type Date Recorded Patient Principal Web Developer Expl anation Advance Directives and Livin [...] Do you have a Healthcare Power of Test Desk Trouble Locator? No April 03, 2025 5:17am Advance Directive Response Recorded Date/ Time Do you have a Healthcare Power of Test Desk Trouble Locator? No April 03, 2025 5:17am Do you have a Healthcare Power of Test Desk Trouble Locator? Yes April 19, 2025 12:03am Advance Directive Response Recorded Date/ Time Do you have a Healthcare Power of Test Desk Trouble Locator? No April 03, 2025 5:17am Do you have a Healthcare Power of Test Desk Trouble Locator? Yes April 19, 2025 4:03am Name of Medical Power of Test Desk Trouble Locator Alice - April 19, 2025 4:03am Advance Directive Response Recorded Date/ Time Do you have a Healthcare Power of Test Desk Trouble Locator? No April 03, 2025 5:17am Do you have a Healthcare Power of Test Desk Trouble Locator? Yes April 19, 2025 4:03am Name of Medical Power of Test Desk Trouble Locator Alice - April 19, 2025 4:03am Do you have a Healthcare Power of Test Desk Trouble Locator? Yes May 05, 2025 7:44pm Name of Medical Power of Test Desk Trouble Locator TOÑITO, May 05, 2025 7:44pm Advance Directive Response Recorded Date/ Time Do you have a Healthcare Power of Test Desk Trouble Locator? No April 03, 2025 5:17am Do you have a Healthcare Power of Test Desk Trouble Locator? Yes April 19, 2025 4:03am Name of Medical Power of Test Desk Trouble Locator Alice - April 19, 2025 4:03am Do you have a Healthcare Power of Test Desk Trouble Locator? Yes May 05, 2025 10:55pm Name of Medical Power of Test Desk Trouble Locator TOÑITO, May 05, 2025 10:55pm History of Present Illness * Keeley Patton, FILLER SPREADER - 11/11/2018 8:11 AM EST Formatting of this note may be different from the original. Patient ID: Enoc Armando is a 72 y.o. male Subjective: HPI: Enoc Armando presents for follow-up of Type 1 diabetes The initial diagnosis of diabetes was [id number] years ago in 1994. Disease course has [...] being taken. Patient does not see a business systems technician. Eye exam is current. Patient with a [...] blood sugar though. PLAN: CPM. 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 Exam within last 12 months: yes Date: 08/2018 . Had bilat cataract extraction Dr. Lopez. Sees Dr. Browne in [place] every year routinely. Nephropathy: Negative Creat: 1.2, [...] Call if BG consistently <70 or >250. [phone] Continue to check blood sugar 4 times [...] being taken. He does not see a business systems technician.Eye exam is current (Jun 16). 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 Exam within last 12 months: yes [...] Last CBC-WBC8.2/ Hgb- 14.6/ Hct- 44.1/ Plt [id number] Problem List Items Addressed This Visit Endocrine [...] diabetes The initial diagnosis of diabetes was [id number] years ago in 1994. Disease course has [...] being taken. Patient does not see a business systems technician. Eye exam is current. Currently taking: No [...] the morning. 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 Exam within last 12 months: yes Date: 08/2018- patient due next month for updated exam Had bilat cataract extraction Dr. Lopez. Sees Dr. Browne in [place] every year routinely. Nephropathy: Negative Creat: 1.0, [...] to bedtime appear to be typically less [id number] and usually less than 180. He was [...] Call if BG consistently <70 or >250. [phone] Continue to check blood sugar 4 times [...] diabetes The initial diagnosis of diabetes was [id number] years ago in 1994. Disease course has [...] being taken. Patient does not see a business systems technician. Eye exam is current. Currently taking: No [...] DAY FOR INSULIN INJECTION pen needle, diabetic (BunndleFine Jolynn Pen Needle) 32 gauge x 5/32 [...] at HS. 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 Exam within last 12 months: yes Date: 08/2018- patient due next month for updated exam Had bilat cataract extraction Dr. Lopez. Sees Dr. Browne in [place] every year routinely. Nephropathy: Negative Creat: 1.08; [...] Call if BG consistently <70 or >250. [phone] Continue to check blood sugar 4 times [...] being taken. Patient does not see a business systems technician. Eye exam is current. Currently taking: No [...] <150 atHS. 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 Exam within last 12 months: yes Date: 09/2019- patient due September 2020for updated exam Had bilat cataract extraction Dr. Lopez. Sees Dr. Browne in [place] every yearroutinely. Nephropathy: Negative Creat: 1.01; eGFR: [...] Call if BG consistently <70 or >250. [phone] Continue to check blood sugar 4 times [...] being taken. Patient does not see a business systems technician. Eye exam is current. Currently taking: No oral hypoglycemic medications Humalog insulin: 10 units at breakfast; 10 units at lunch; 14-15 units at supper Lantus insulin: 18 units at bedtime Outpatient Medications Marked as Taking for the 10/18/20 encounter (Office Visit) with Paty Ortega FILLER SPREADER: amLODIPine (NORVASC) 10 MG tablet, Take 10 [...] <150 atHS. 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 Exam within last 12 months: yes Date: 10/16/20. Had bilat cataract extraction Dr. Lopez. Sees Dr. Browne in [place] every year routinely. Nephropathy: Negative Creat: 1.01; [...] Call if BG consistently <70 or >250. [phone] Continue to check blood sugar 4 times [...] diabetes The initial diagnosis of diabetes was [id number] years ago in 1994. Disease course has [...] being taken. Patient does not see a business systems technician. Eye exam is current. Currently taking: No [...] same dose of 18 unitsnightly. 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 Exam within last 12 months: yes Date: 08/2018 . Had bilat cataract extraction Dr. Lopez. Sees Dr. Browne in [place] every year routinely. Nephropathy: Negative Creat: 1.0, [...] Call if BG consistently <70 or >250. [phone] Continue to check blood sugar 4 times [...] Ultrasound doppler carotid Mary Vargas MD [address] [place] [address] Status Reason Specialty Diagnoses / Procedures Referre d By Contact Referred To Contact Closed Cardiology Diagnoses Bilateral carotid artery stenosis Procedures Ultrasound doppler carotid Mary Vargas MD [address] [place] [address] [facility] [address] [facility] [place] [address] Specialty Diagnoses / Procedures Referred By Contac t Referred To Contact Urology Diagnoses Elevated PSA Paty Ortega, FILLER SPREADER [address] [place] [address] Alvaro Gutierrez MD [address] [place] [phone] Referral ID Status Reason Start Date Expiration Date Visits Requested Visits Authorized [id number] Pending Review Specialty Services Required/Pat ient's Best Interest 06/19/2022 06/19/2023 1 1 Specialty Diagnoses / Procedures Referred By Contac t Referred To Contact Cardiology Diagnoses Bilateral carotid artery stenosis Procedures Ultrasound doppler carotid Paty Ortega CNP [address] [place] [address] Referral ID Status Reason Start Date Expiration Date V isits Requested Visits Authorized [id number] Authorized 10/19/2022 10/19/2023 1 1 Specialty Diagnoses / Procedures Referred By Contac t Referred To Contact Radiology Diagnoses Congestive heart failure, unspecified HF chronicity, unspecified heart failure type (HCC) 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 Procedures NM Myocardial Perfusion Multiple SPECT Day, Woo Larsen MD [address] [place] [address] Referral ID Status Reason Start Date Expiration Date V isits Requested Visits Authorized [id number] New Request 10/21/2023 10/20/2024 4 4 Chief [...] 6am Hyperglycemia due to type 2 diabetes calyton litus April 19, 2025 3:06am Hyperkalemia April [...] section and content) DATE CREATED AUTHOR 04/21/2018 [facility] DATE CREATED AUTHOR AUTHOR'S ORGANIZ ATION 07/05/2019 [facility] DATE CREATED AUTHOR AUTHOR'S ORGANIZ ATION 08/04/2023 [facility] DATE CREATED AUTHOR AUTHOR'S ORGANIZ ATION 08/06/2023 [facility] DATE CREATED AUTHOR AUTHOR'S ORGANIZ ATION 10/13/2023 [facility] DATE CREATED AUTHOR AUTHOR'S ORGANIZ ATION 11/12/2024 [facility] DATE CREATED AUTHOR AUTHOR'S ORGANIZ ATION 03/13/[address] [facility] DATE CREATED AUTHOR AUTHOR'S ORGANIZ ATION 04/14/2025 [facility] DATE CREATED AUTHOR AUTHOR'S ORGANIZ ATION 04/28/2025 [facility] DATE CREATED AUTHOR AUTHOR'S ORGANIZ ATION 04/29/2025 [facility] DATE CREATED AUTHOR AUTHOR'S ORGANIZ ATION 05/03/2025 [facility] DATE CREATED AUTHOR AUTHOR'S ORGANIZ ATION 05/10/2025 [facility] Reason for Visit (unrecogniz ed section and content) Reason Comments Diabetes Mellitus Reason Onset Date Comments Medication Refill 02/18/2021 Reason Comments Diabetes Mellitus Status Reason Specialty Diagnoses / Procedures Referre d By Contact Referred To Contact Closed Cardiology Diagnoses Bilateral carotid artery stenosis Procedures Ultrasound doppler carotid Mary Vargas MD [address] [place] [address] [facility] [address] [facility] [place] [address] Reason Onset Date Comments Medication Refill 10/08/2021 [...] No coded services entered Praful Maloney MD [address] [place] [address] [address] Referral ID Status Reason Start Date Expiration Date Visits Re quested Visits Authorized [id number] 1 1 Reason Comments Initial Visit (Intake) SOBOE Specialty Diagnoses / Procedures Referred By Contac t Referred To Contact Cardiology Diagnoses Congestive heart failure, unspecified HF chronicity, unspecified heart failure type ([facility]) Mary Vargas MD [address] [place] [id number] [place] [address] Referral ID Status Reason Start Date Expiration Date Visits Re quested Visits Authorized [id number] Closed 10/19/2023 10/18/2024 1 1 Reason Comments Respiratory Distress Pt comes in for dif ficulty breathing. Pt states that he was dx with a viral lung infection 1 wk ago and placed on a steroid. Pt had covid 1 month ago and was admitted for 1 wk at this facility. 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 EMS reports an O2 level in [...] carotid artery stenosis Sandi Phan PA-C [address] [place] [address] Phone: tel: fax: [address] [address] Phone: tel: Referral ID Status Reason Start Date Expiration Date V isits Requested Visits Authorized [id number] Pending Review 11/07/2024 11/07/2025 1 1 Reason [...] Ayanna Albert DO [address] [place] [address] Phone: tel: fax: Referral ID Status Reason Start Date Expiration Date V isits Requested Visits Authorized [id number] Authorized 08/29/2024 08/29/2025 1 1 Reason Comments Shortness of Breath Abnormal Lab BNP Reason Comments Diabetes Mellitus Diabetic Eye Exam du e on 10/14/2021 Reason Onset Date Comments Results 03/27/2025 Lab Reason Onset Date Comments Medication Refill 04/16/2025 Reason Comments Follow-up [facility] Teams (unrecognized sec tion and content) Denial Resolution Specialist Relationship Specialty Start Date End Date Nancy Mirza MD PCP - General Family Medicine 01/09/16 Denial Resolution Specialist Relationship Specialty Start Date End Date Nancy Mirza MD PCP - General Family Medicine 01/09/16 Denial Resolution Specialist Relationship Specialty Start Date End Date Nancy Mirza MD PCP - General Family Medicine 01/09/16 Denial Resolution Specialist Relationship Specialty Start Date End Date Nancy Mirza MD PCP - General Family Medicine 01/09/16 Denial Resolution Specialist Relationship Specialty Start Date End Date Nancy Mirza MD PCP - General Family Medicine 01/09/16 Denial Resolution Specialist Relationship Specialty Start Date End Date Nancy Mirza MD PCP - General Family Medicine 01/09/16 Denial Resolution Specialist Relationship Specialty Start Date End Date Nancy Mirza MD PCP - General Family Medicine 01/09/16 Denial Resolution Specialist Relationship Specialty Start Date End Date Nancy Mirza MD [address] [place] [address] PCP - General Family Medicine 01/09/16 Denial Resolution Specialist Relationship Specialty Start Date End Date Nancy Mirza MD [address] [place] [address] PCP - General Family Medicine 01/09/16 Denial Resolution Specialist Relationship Specialty Start Date End Date Nancy Mirza MD [address] [place] [address] PCP - General 11/01/18 Denial Resolution Specialist Relationship Specialty Start Date End Date Ryley Jeter MD [address] [place] [address] PCP - General Family Medicine 10/08/23 Denial Resolution Specialist Relationship Specialty Start Date End Date Nancy Mirza MD [address] [place] [address] PCP - General 11/01/18 Denial Resolution Specialist Relationship Specialty Start Date End Date Ryley Jeter MD [address] [place] [address] PCP - General Family Medicine 10/08/23 Denial Resolution Specialist Relationship Specialty Start Date End Date Ryley Jeter MD [address] [place] [address] PCP - General Family Medicine 10/08/23 Team Status: Active Member Role Status Lizzette Jeter MD Primary Care Provider Active Team Status: Inactive Member Role Status Lizzette Jeter MD Primary Care Provider Active Jana Ferguson [employer], [employer]-C Attending Provider Active Team Status: Inactive Member Role Status Lizzette Jeter MD Primary Care Provide r, Attending Provider, Referring Provider Active Denial Resolution Specialist Relationship Specialty Start Date End Date Ayanna Albert DO [address] [place] [address] PCP - [employer] Medicare Advantage PCP 11/01/23 Generic Provider, No Assigned [facility] [address] [place] [address] PCP - General Internal Medicine 11/26/23 Denial Resolution Specialist Relationship Specialty Start Date End Date Ayanna Albert DO [address] [place] [phone] PCP - [employer] Medicare Advantage PCP 11/01/23 Gerri Amos MD [address] [place] [address] PCP - General Internal Medicine 11/26/23 Denial Resolution Specialist Relationship Specialty Start Date End Date Ryley Jeter MD [address] [place] [address] PCP - General Family Medicine 10/08/23 Denial Resolution Specialist Relationship Specialty Start Date End Date Nancy Mirza MD [address] [place] [id number] PCP - General 11/01/18 11/25/23 Denial Resolution Specialist Relationship Specialty Start Date End Date Ryley Jeter MD [address] [place], [place] [id number] PCP - General Family Medicine 10/08/23 Denial Resolution Specialist Relationship Specialty Start Date End Date Ryley Jeter MD [address] [place], [place] [phone] PCP - General Family Medicine 10/08/23 Denial Resolution Specialist Relationship Specialty Start Date End Date Ryley Jeter MD [address] [place], [place] [phone] PCP - General Family Medicine 10/08/23 Denial Resolution Specialist Relationship Specialty Start Date End Date Ryley Jeter MD [address] [place] [address] PCP - General Family Medicine 10/08/23 Denial Resolution Specialist Relationship Specialty Start Date End Date Ayanna Albert DO [address] [place] [address] PCP - [employer] Medicare Advantage PCP 11/01/23 Generic Provider, No Assigned [facility] [address] [place] [address] PCP - General Internal Medicine 11/26/23 Denial Resolution Specialist Relationship Specialty Start Date End Date Ryley Jeter MD [address] [place], [place] [id number] PCP - General Family Medicine 10/08/23 Denial Resolution Specialist Relationship Specialty Start Date End Date Ayanna Albert DO [address] [place] [phone] PCP - [employer] Medicare Advantage PCP 11/01/23 Generic Provider, No Assigned [facility] [address] [place] [address] PCP - General Internal Medicine 11/26/23 Denial Resolution Specialist Relationship Specialty Start Date End Date Ryley Jeter MD [address] [place] [address] PCP - General Family Medicine 10/08/23 Denial Resolution Specialist Relationship Specialty Start Date End Date Ryley Jeter MD [address] [place], [place] [address] PCP - General Family Medicine 10/08/23 Denial Resolution Specialist Relationship Specialty Start Date End Date Ryley Jeter MD [address] [place] [address] PCP - General Family Medicine 10/08/23 Denial Resolution Specialist Relationship Specialty Start Date End Date Ryley Jeter MD [address] [place], [place] [phone] PCP - General Family Medicine 10/08/23 Denial Resolution Specialist Relationship Specialty Start Date End Date Ryley Jeter MD [address] [place] [address] PCP - General Family Medicine 10/08/23 Denial Resolution Specialist Relationship Specialty Start Date End Date Ryley Jeter MD [address] [place], [place] [address] PCP - General Family Medicine 10/08/23 Denial Resolution Specialist Relationship Specialty Start Date End Date Ryley Jeter MD [address] [place] [address] PCP - General Family Medicine 10/08/23 Denial Resolution Specialist Relationship Specialty Start Date End Date Ryley Jeter MD [address] [place], [place] [address] PCP - General Family Medicine 10/08/23 Kristy Parker MD [address] [place] [address] Consulting Physician Vascular Surgery 11/09/24 Denial Resolution Specialist Relationship Specialty Start Date End Date Ryley Jeter MD [address] [place], [place] [address] PCP - General Family Medicine 10/08/23 Kristy Parker MD [address] [place] [address] Consulting Physician Vascular Surgery 11/09/24 Denial Resolution Specialist Relationship Specialty Start Date End Date Ryley Jeter MD [address] [place], [place] [address] PCP - General Family Medicine 10/08/23 Kristy Parker MD [address] [place] [address] Consulting Physician Vascular Surgery 11/09/24 Denial Resolution Specialist Relationship Specialty Start Date End Date Ryley Jeter MD [address] [place], [place] [address] PCP - General Family Medicine 10/08/23 Kristy Parker MD [address] [place] [address] Consulting Physician Vascular Surgery 11/09/24 Denial Resolution Specialist Relationship Specialty Start Date End Date Ryley Jeter MD [address] [place], [place] [address] PCP - General Family Medicine 10/08/23 Kristy Parker MD [address] [place] [address] Consulting Physician Vascular Surgery 11/09/24 Team Status: Inactive Member Role Status Dates Ryley Jeter MD Primary Care Provider Active St art: February 06, 2025 End: February 06, 2025 Dr. Kerwin Tamayo MD Attending Provider Activ e Start: February 06, 2025 End: February 06, 2025 Denial Resolution Specialist Relationship Specialty Start Date End Date Ryley Jeter MD [address] [place], [place] [id number] PCP - General Family Medicine 10/08/23 Kristy Parker MD [address] [facility] [place] [address] Consulting Physician Vascular Surgery 11/09/24 Denial Resolution Specialist Relationship Specialty Start Date End Date Ryley Jeter MD [address] [place], [place] [address] PCP - General Family Medicine 10/08/23 Kristy Parker MD [address] [place] [address] Consulting Physician Vascular Surgery 11/09/24 Denial Resolution Specialist Relationship Specialty Start Date End Date Ryley Jeter MD [address] [place], [place] [address] PCP - General Family Medicine 10/08/23 Kristy Parker MD [address] [place] [address] Consulting Physician Vascular Surgery 11/09/24 Denial Resolution Specialist Relationship Specialty Start Date End Date Generic Provider, No Assigned PcpMD PCP - General Internal Medicine 11/26/23 Denial Resolution Specialist Relationship Specialty Start Date End Date Ryley Jeter MD [address] [place], [place] [address] PCP - General Family Medicine 10/08/23 Kristy Parker MD [address] [place] [address] Consulting Physician Vascular Surgery 11/09/24 Denial Resolution Specialist Relationship Specialty Start Date End Date Ryley Jeter MD [address] [place], [place] [id number] PCP - General Family Medicine 10/08/23 Kristy Parker MD [address] [place] [address] Consulting Physician Vascular Surgery 11/09/24 Team Status: [...] St art: April 05, 2025 Dr. Hadley eBrmeo MD Other Provider Active S tart: April [...] Active Star t: April 06, 2025 Dr. Diloln Moses DO Other Provider Active St art: [...] Provider Active Start: April 03, 2025 Dr. rAnulfo Adame MD Other Provider Active Start : [...] art: April 03, 2025 Dr. Jose Rafael Daiely DO Other Provider Active Start: April 03, [...] St art: April 19, 2025 Dr. Arnulfo Jsoe DO Emergency Provider Active Start: April 19, [...] Active Start: April 21, 2025 Dr. Malika Fonscea DO Attending Provider Active Start: April 21, [...] Provider Active St art: April 22, 2025 Denial Resolution Specialist Relationship Specialty Start Date End Date Generic [...] Active Sta rt: April 03, 2025 Dr. dAarsh Mosquera MD Other Provider Active Star t: [...] Sta rt: April 05, 2025 Dr. Adarsh Mosuqera MD Other Provider Active Star t: April [...] Active Sta rt: April 08, 2025 Dr. Trery Davis MD Other Provider Active St art: [...] 2025 Team Status: Active Member Role/Relationship Status Lizeztte Jeter MD Primary Care Provider Active St [...] dose 0203 (Given - Provider: Scarlet Ashford, MANUFACTURING ASSOCIATE - Comment: albuterol) amLODIPine (Norvasc) tablet 10 [...] (Not Given - Provider: Amber L Pascal, MANUFACTURING ASSOCIATE - Reason: Medication not available)191 (Given - Provider: Malika Hemphill, MANUFACTURING ASSOCIATE) 06 (Given - Provider: Delmar Mcgowan, MANUFACTURING ASSOCIATE)1900 (Due) budesonide (Pulmicort) 0.5 mg/2 mL nebulizer solution 0.5 mg (CANCELED) 0.5 mg, nebulization, 2 times daily RT, First dose on Wed10/11/23 at 0600, Rinse mouth with water after use to reduce aftertaste and incidence of candidiasis. Do not swallow. 0603 (Given - Provider: Nancy Juares, MANUFACTURING ASSOCIATE) cefTRIAXone (Rocephin) 2 g IV in dextrose [...] Wed10/11/23 at 0700 0951 (Given - Provider: Gnei Wall RN) 2104 (Given - Provider: Amber [...] Juares RRT)1821 (Given - Provider: Scarlet Ashford MANUFACTURING ASSOCIATE)2145 (Given - Provider: Scarlet Ashford MANUFACTURING ASSOCIATE) 0652 (Given - Provider: Amber Pascal RRT)1156 [...] Patient/family refused) 0900 (Not Given - Provider: oMody Gorman RN - Reason: Patient/family refused) 0900 [...] 2218 (Given - Provider: Kristi Bowman RN) skltxvkznsjh-tneevifnsv-dxrimifk (Zosyn) IV 3.375 g (COMPLETED) 3.375 g, [...] Baptiste, FIDEL)0442 (Stopped - Provider: Blanco Olivera, IFDEL) 0509 (New Bag - Provider: Nelia Flores, [...] Provider: Blanco Olivera, FIDEL)0149 (Stopped - Provider: Blacno Olivera, FIDEL)0341 (New Bag - Provider: Sultana [...] 11/27/23 at 0337, Anginal pain, may repeat [id number] x3, then notify physician. DO NOT CRUSH [...] Comment: 8 units instructed verbal order from [facility] [place]) isosorbide mononitrate (IMDUR) 24 hr tablet 30 [...] BE BASED ON THE PRIMARY CLINICAL RECORDS. [employer] provides no warranty or guarantee of the accuracy or completeness of information in this document.
[2025-05-13 16:25] LABS: BETA-HYDROXYBUTYRATE 0.3 mmol/L (0.0-0.3); Procalcitonin 0.22 ng/mL (<=0.10)
--- NOTE | 2025-05-13 16:29 | RAD_ITS ---
PROCEDURE: CHEST 1 VIEW (PORTABLE) 05/13/2025 REASON FOR EXAM: INTUBATION TECHNIQUE: Frontal view of the chest. COMPARISON: Chest radiographs on 05/13/2025 and 05/05/2025 FINDINGS: Lines and tubes: Endotracheal tube tip terminates 2.5 cm proximal of the karthik. Enteric tube courses in midline with tip below the level of the diaphragm, and side port at the expected location of the gastroesophageal junction. Heart: Cardiac and mediastinal contours are enlarged, unchanged. Lungs: There is slight interval worsening of airspace disease throughout both lungs, worse in the mid to lower lung zones, compared to earlier same-day radiograph Bones: Degenerative changes are identified within the shoulders and thoracic spine. RAD/Chest 1 View (Portable) IMPRESSION: 1. Appropriate positioning of the endotracheal tube. 2. Enteric tube side port projects near the expected location of the gastroeso phageal junction, consider slightly advancing. 3. Slight interval worsening of bilateral airspace disease compared to earlier same-day radiographs. Reading Location: [facility]
[2025-05-13 16:30] LABS: Troponin T High Sens 2 HR 143 ng/L (<=22)
[2025-05-13 16:34] LABS: Osmolality, Serum 351 mOsm/KG (280-301)
--- NOTE | 2025-05-13 16:35 | NURSING ---
call from lab, 2nd troponin 143, dr. Brandon made aware
[2025-05-13 16:37] LABS: Partial Thromboplast Time 26.2 Seconds (24.1-36.2); Prothrombin Time (Protime)PT. 14.1 SECONDS (11.7-14.9)
[2025-05-13 16:39] LABS: Magnesium 2.7 mg/dL (1.5-2.2)
[2025-05-13] MEDS: Propofol 10MG/Ml 1,000 MG/100 ML Bottle 3.7 MG CONT INF ×2 (16:39→19:00)
[2025-05-13] MEDS: fentaNYL drip 100 ML 2.5 MCG CONT INF (16:43)
[2025-05-13 16:56] LABS: Allen Test Positive; Base Excess -4 mmol/L (-2 to +2); FI02 100.0; PEEP 8; PO2 96 mmHG (75-100); RR 14; SITE R Radial; SO2 96 % (95-99)
[2025-05-13] MEDS: HEPARIN/D5w 25,000 UNITS 25,000 UNITS/250 ML IV.SOLN. 8 UNITS CONT INF (17:03)
--- OUTSIDE RECORDS SUMMARY | 2025-05-13 17:12 | XMS RPT_ITS | CCD ---
Author Organization [facility] Care Team Providers Care Suture Polisher Name Role Phone Nancy Mirza Unavailable Unavailable Nancy Mirza Unavailable Unavailable Nancy Mirza Unavailable Unavailable Unavailable Primary Care Provider Nancy Calles Primary Care Provider Nancy Mirza Primary Care Provider Nancy Mirza Primary Care Provider Naresh Mirza MD, Nancy Key Primary Care Provider Nancy Mirza MD Primary Care Provider [phone] Nancy Mirza MD Primary Care Provider [phone] Nancy Mirza MD Primary Care Provider Nancy [...] Dr. Ayanna Albert Attending Unavail able ORTEGA, MUSEUM SPECIALIST PATYMOE STEWART Referring Unava ilNANCY Wray Primary Care Unavailable Ayanan Albetr DO Unavailable Generic Provider , No Assigned Pcp Primary Car e Provider Unavailable Gerri Amos MD Primary Care Provider Unavailabl e Steffany URIBE, Ryley Key Primary Care Provider [phone] Nancy Mirza MD Primary Care Provider Generic Provider , No Assigned Pcp Primary Car e Provider Unavailable Generic Provider , No Assigned Pcp Primary Car e Provider Unavailable Kristy Parker MD Unavailable [phone] GENERIC PROVIDER, NO ASSIGNED PCP Primary Care Unavailable GENERIC PROVIDER, NO ASSIGNED PCP Primary Care Unavailable GENERIC PROVIDER, NO ASSIGNED PCP Primary Care Unavailable Kristy Parker MD Unavailable Ryley Jeter MD Primary Care Provider Belkis URIBE, Dr. Suresh Attending Provider Generic Provider , No Assigned Pcp Primary Car e Provider Unavailable [facility] Consulting Unavai BERNADETTE Felix Attending Unavailable RYLEY JETER Primary Care Unavailable SALEMJESS Admitting Unavailable DURAIRACINTIA Isbell Admitting Unavailable [facility] Consulting Un available RYLEY JETER Primary Care Unavailable NIDIA GARAY Attending Unavailable Dr. John Brandon DO Emergency Provider [phone] Jaiden URIBE, Dr. Dyana Paredes Admit Provider [phone] Jaiden URIBE, Dr. Dyaan Paredes Attending Provider Jaiden URIBE, Dr. Dyana [...] Provider Radha URIBE, Dr. Guerra Other Provider [facility] ariela Woods MD, Dr. Mar Other Provider Demetri URIBE, Dr. Altamirano Other Provider Cordelia URIBE, Dr. Wlash Other Provider Lucinda URIBE, Dr. Barton Other Provider Dr. Dillon Moses DO Other Provider [phone] Tiffanie URIBE, Dr. Ballesteros Other Provider [phone] Jay Gallardo MD, Dr. Corona Other Provider [phone] Asim VERDUZCO, Dr. Mantilla Other Provider Andrei URIBE, Dr. Sullivan Other Provider Callum URIBE, Dr. Kent Other Provider [phone] Sai URIBE, Dr. Rain Attending Provider Adrian URIBE, Dr. Tijerina Attending Provider Veronica URIBE, Dr. Valentin Attending Provider Janelle URIBE, Dr. Smooth Ahn Attending Provider Teresa URIBE, Dr. Jose Perez Attending Provider WOO SMALL Referring [facility] Steffany URIBE, [facility] Primary Care Provider [phone] Belkis URIBE, Dr. Suresh Attending Provider Dr. [...] URIBE, Dr. Nancy Delgado Other Provider Susan RUIBE, Dr. Stewart Other Provider Elvie URIBE, Dr. Butcher Other Provider Jesus URIBE, Dr. Wood Other Provider Keenan URIBE, Dr. Song Other Provider Mervin URIBE, Dr. Gutiérrez Other Provider Deep URIBE, Dr. Arredondo Other Provider Saritha URIBE, Dr. Ya Other Provider Radha URIBE, Dr. Guerra Other Provider Unavailabl ariela Woods MD, Dr. Mar Other Provider [phone] Demetri URIBE, Dr. Altamirano Other Provider Cordelia URIBE, Dr. Walsh Other Provider [phone] Lucinda URIBE, Dr. Barton Other Provider Josué VERDUZCO, Dr. Carranza Other Provider [phone] Tiffanie URIBE, Dr. Ballesteros Other Provider [phone] Sami URIBE, Dr. Corona Other Provider [phone] Jose Rafael Dailey DO Other Provider [...] Provider Alejandra VERDUZCO, Dr. Ann Attending Provider [phone] STEFFANY, CHALON TUCKER Primary Care Unavailable DAY, [...] Unavailable Dr. Carlita Raygoza DO Other Provider Dr. Carlita Raygoza DO Attending Provider Allergies Allergy Classification Reported Allergen(s) Allergy Type Date of Onset Reaction(s) Facility Corticosteroids (1 source) predniSONE Drug Allergy 08-24-20 23 Other (See Comments) [facility] HMG-CoA Reductase Inhibitors (statins) (3 sources) Hmg-Coa Reductase Inhibitors (Statins) Drug Allergy 01-08-20 16 [facility] (20 sources) Hmg-Coa Reductase Inhibitors (Statins); Translations: [MJVDNRN-ZFK-RCI REDUCTASE INHIBITORS] Propensity to adverse reactions to drug 01-08-20 16 Other [facility] Work Phone: (6 sources) HMG-CoA reductase inhibitor Propensity to adverse reactions to drug 01-08-20 16 [facility] (20 sources) HMG-CoA reductase inhibitor Propensity to adverse reactions to drug 01-08-20 16 Unknown [facility] (18 sources) predniSONE; Translations: [predniSONE TABS] Drug Allergy 08-24-20 23 Other, Other (See Comments) [facility] (4 sources) predniSONE; Translations: [PREDNISONE] Drug Allergy 08-24-20 [facility] (7 sources) Glucocorticoid Receptor Agonists Propensity to adverse reactions 04-06-20 24 Other [facility] Comment on above: Blood sugar increase (4 sources) Spironolactone Drug Allergy 04-19-20 25 [facility] (1 source) Corticosteroids Drug allergy (disorder) 04-03-20 25 [facility] Repository (1 source) Spironolactone Drug Allergy 04-19-20 25 [facility] (1 source) Zlxrdjn-Rby-Uvp Reductase Inhibitor Drug allergy (disorder) 04-03-20 25 [facility] Repository Medications Current Medications Medication Drug [...] 11/27/23 at 0337 Anginal pain, may repeat [id number] x3, then notify physician. DO NOT CRUSH [...] (porcine) injection 4,000 Units Start: 11-26-2023 take [id number] [IU] intravenously every four hours as needed [...] PLACED TUBE OR TUBE less than 14 Egyptian. 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, [address] PROTIME Normal 11.7-14.9 [facility] Comment on above: Result Comment: Ray elled via OM: MD Ordered Performed By: #### L 300.3900 ####[facility] [address] [place], [address] Prothrombin Time w/INRon INR Normal [facility] Comment on above: Result Comment: Ray elled via OM: MD Ordered Performed By: #### L 300.3900 ####[facility] [address] [place], [address] PROTIME Normal 11.7-14.9 [facility] Comment on above: Result Comment: Ray elled via OM: MD Ordered Performed By: #### L 300.3900 ####[facility] [address] [place], [address] Absolute lymphocyte countOrd ered By: Malika Fonseca on 05-09-2025 Lymphocytes Auto (Unsp spec) [#/Vol] 0.27 10*3/uL Low 0.83-4.51 [facility] Anion gap in Serum or Plasma Ordered By: Malika Fonseca on 05-09-2025 Anion gap [Moles/Vol] 15 mmol/L 5-15 [facility] Automated lymphocyte count a s percentage of total leukocytesOrdered By: Malika Fonseca on 05-09-2025 Lymphocytes/100 WBC Auto (Unsp spec) 4.3 % Low 19-41 [facility] BUN/creatinine ratioOrdered By: Malika Fonseca on 05-09-2025 Urea nitrogen/Creatinine [Mass ratio] 27.8 mg/mg High - [facility] Basic Metabolic Profile (BMP )on 05-09-2025 BUN/CRE 27.8 RATIO High - [facility] Comment on above: Performed By: #### L 500.2500, L100.0100 ####[facility] [address] [place], [address] Calcium [Mass/Vol] 8.3 mg/dL Normal 7.6-11.0 [facility] Comment on above: Performed By: #### L 500.2500, L100.0100 ####[facility] [address] [place], [address] Chloride [Moles/Vol] 103 mmol/L Normal 98-108 [facility] Comment on above: Performed By: #### L 500.2500, L100.0100 ####[facility] [address] [place], [address] CO2 [Moles/Vol] 22.0 mmol/L Normal 21.0-32.0 [facility] Comment on above: Performed By: #### L 500.2500, L100.0100 ####[facility] [address] [place], [address] Creatinine [Mass/Vol] 2.87 mg/dL High 0.70-1.20 [facility] Comment on above: Performed By: #### L 500.2500, L100.0100 ####[facility] [address] [place], [address] ECRCL 18.87 ml/min Low 50-250 [facility] Comment on above: Performed By: #### L 500.2500, L100.0100 ####[facility] [address] [place], [address] GAP 15 Normal 5-15 [facility] Comment on above: Performed By: #### L 500.2500, L100.0100 ####[facility] [address] [place], [address] GFR/1.73 sq M.predicted among non-blacks MDRD (S/P/Bld) [Vol rate/Area] 21 mL/min/{1.73_m2} Low >60 [facility] Comment on above: Result Comment: mL/m in/1.73m2 CKD-EPI Creatinine Equation (2020) Performed By: #### L 500.2500, L100.0100 ####[facility] [address] [place], [address] Glucose [Mass/Vol] 336 mg/dL High 70-99 [facility] Comment on above: Performed By: #### L 500.2500, L100.0100 ####[facility] [address] [place], [address] Potassium [Moles/Vol] 4.1 mmol/L Normal 3.3-5.1 [facility] Comment on above: Performed By: #### L 500.2500, L100.0100 ####[facility] [address] [place], [address] Sodium [Moles/Vol] 140 mmol/L Normal 133-145 [facility] Comment on above: Performed By: #### L 500.2500, L100.0100 ####[facility] [address] [place], [address] Urea nitrogen [Mass/Vol] 80 mg/dL High 4-19 [facility] Comment on above: Performed By: #### L 500.2500, L100.0100 ####[facility] [address] [place], [address] Basophil percentageOrdered B y: Malika Fonseca on 05-09-2025 Basophils/100 WBC (Bld) 0.2 % 0-1 [facility] Bedside Glucoseon 05-09-2025 FINGERSTICK GLU 490 mg/dL Invalid Interpretation Code 74-106 [facility] Comment on above: Result Comment: ADITI GEMENT OF PATIENT CARE PER NURSING PROTOCOL Performed By: #### L 501.080 ####[facility] [address] [place], [address] FINGERSTICK GLU 414 mg/dL High 74-106 [facility] Comment on above: Result Comment: ADITI GEMENT OF PATIENT CARE PER NURSING PROTOCOL Performed By: #### L 501.080 ####[facility] [address] [place], [address] FINGERSTICK GLU 309 mg/dL High 74-106 [facility] Comment on above: Result Comment: ADITI GEMENT OF PATIENT CARE PER NURSING PROTOCOL Performed By: #### L 501.080 ####[facility] [address] [place], [address] CBC W/Diff, Automatedon 07-0 Absolute Lymph 0.27 X10 3/uL Low 0.83-4.51 [facility] Comment on above: Performed By: #### L 500.2500, L100.0100 ####[facility] [address] [place], [address] Absolute Neut 5.9 X10 3/uL Normal 2.0-7.7 [facility] Comment on above: Performed By: #### L 500.2500, L100.0100 ####[facility] [address] [place], [address] Basophils/100 WBC (Bld) 0.2 % Normal 0-1 [facility] Comment on above: Performed By: #### L 500.2500, L100.0100 ####[facility] [address] [place], [address] Eosinophils/100 WBC (Bld) 0.0 % Normal 0-5 [facility] Comment on above: Performed By: #### L 500.2500, L100.0100 ####[facility] [address] [place], [address] Erythrocyte distribution width (RBC) [Ratio] 14.3 % Normal 11.6-14.6 [facility] Comment on above: Performed By: #### L 500.2500, L100.0100 ####[facility] [address] [place], [address] Hematocrit (Bld) [Volume fraction] 23.8 % Low 40-54 [facility] Comment on above: Performed By: #### L 500.2500, L100.0100 ####[facility] [address] [place], [address] Hemoglobin (Bld) [Mass/Vol] 7.6 g/dL Low 13.0-16.5 [facility] Comment on above: Performed By: #### L 500.2500, L100.0100 ####[facility] [address] [place], [address] IG% 0.600 Normal 0.0-0.9 [facility] Comment on above: Result Comment: IG% - Immature Granulocytes (promyelocytes, myelocytes andmetamyelocytes) > 1% indicates that a LEFT SHIFT is Present. Performed By: #### L 500.2500, L100.0100 ####[facility] [address] [place], [address] Lymphocytes/100 WBC (Bld) 4.3 % Low 19-41 [facility] Comment on above: Performed By: #### L 500.2500, L100.0100 ####[facility] [address] [place], [address] MCH (RBC) [Entitic mass] 29.3 pg Normal 27.0-32.0 [facility] Comment on above: Performed By: #### L 500.2500, L100.0100 ####[facility] [address] [place], [address] MCHC (RBC) [Mass/Vol] 31.9 g/dL Low 32-36 [facility] Comment on above: Performed By: #### L 500.2500, L100.0100 ####[facility] [address] [place], [address] MCV (RBC) [Entitic vol] 91.9 fL Normal 80-94 [facility] Comment on above: Performed By: #### L 500.2500, L100.0100 ####[facility] [address] [place], [address] Monocytes/100 WBC (Bld) 1.6 % Normal 0-10 [facility] Comment on above: Performed By: #### L 500.2500, L100.0100 ####[facility] [address] [place], [address] Neutrophils/100 WBC (Bld) 93.3 % High 47-70 [facility] Comment on above: Performed By: #### L 500.2500, L100.0100 ####[facility] [address] [place], [address] Nucleated RBC (Bld) [#/Vol] 0 10*3/uL Normal 0-5 [facility] Comment on above: Performed By: #### L 500.2500, L100.0100 ####[facility] [address] [place], [address] Platelet mean volume (Bld) [Entitic vol] 11.5 fL Normal 6.2-12.0 [facility] Comment on above: Performed By: #### L 500.2500, L100.0100 ####[facility] [address] [place], [address] Platelets (Bld) [#/Vol] 153 10*3/uL Normal 150-450 [facility] Comment on above: Performed By: #### L 500.2500, L100.0100 ####[facility] [address] [place], [address] RBC (Bld) [#/Vol] 2.59 10*6/uL Low 4.6-6.2 [facility] Comment on above: Performed By: #### L 500.2500, L100.0100 ####[facility] [address] [place], [address] RDW SD 47.9 fl High 35.1-43.9 [facility] Comment on above: Performed By: #### L 500.2500, L100.0100 ####[facility] [address] [place], [address] WBC (Bld) [#/Vol] 6.3 10*3/uL Normal 4.4-11.0 [facility] Comment on above: Performed By: #### L 500.2500, L100.0100 ####[facility] [address] [place], [address] Carbon dioxide, total [Moles /volume] in Central venous bloodOrdered By: Malika Fonseca on 05-09-2025 CO2 [Moles/Vol] 22.0 mmol/L 21.0-32.0 [facility] Chloride assayOrdered By: Rogerio Fonseca on 05-09-2025 Chloride [Moles/Vol] 103 mmol/L 98-108 [facility] Eosinophil percentageOrdered By: Malika Fonseca on 05-09-2025 Eosinophils/100 WBC (Bld) 0.0 % 0-5 [facility] Erythrocyte distribution wid th ratioOrdered By: Malika Fonseca on 05-09-2025 Erythrocyte distribution width (RBC) [Ratio] 14.3 % 11.6-14.6 [facility] Erythrocyte distribution wid th standard deviationOrdered By: Malika Fonseca on 05-09-2025 Erythrocyte distribution width (RBC) [Ratio] 47.9 fl High 35.1-43.9 [facility] Folates, RBCon 05-09-2025 Fol.,Hemolysate 444.0 ng/mL Normal Not Estab. [facility] Comment on above: Performed By: #### L 3100.1725 ####[facility] [address] [place], [place], [address] Folate, RBC 1552 ng/mL Normal >498 [facility] Comment on above: Result Comment: Perf ormed at: - [facility] [address] [id number] Director: Todd Anderson PhD, Phone: [phone] Performed By: #### L 3100.1725 ####[facility] [address] [place], [address] Hematocrit (Bld) [Volume fraction] 28.6 % Low 37.5-51.0 [facility] Comment on above: Performed By: #### L 3100.1725 ####[facility] [address] [place], [address] Glomerular filtration rate ( GFR) estimation/1.73 sq m using serum, plasma, or whole bOrdered By: Malika Fonseca on 05-09-2025 GFR/1.73 sq M.predicted among non-blacks MDRD (S/P/Bld) [Vol rate/Area] 21 mL/min/{1.73_m2} Low >60 [facility] Gl[facility] deOrdered By: Malika Fonseca on 05-09-2025 Glucose [Mass/Vol] 490 mg/dL High 74-106 [facility] Hematocrit Auto (Bld) [Volum e fraction]Ordered By: Malika Fonseca on 05-09-2025 Hematocrit (Bld) [Volume fraction] 23.8 % Low 40-54 [facility] Hemoglobin measurementOrdere d By: Malika Fonseca on 05-09-2025 Hemoglobin (Bld) [Mass/Vol] 7.6 g/dL Low 13.0-16.5 [facility] Immature granulocytes/100 WB C Auto (Bld)Ordered By: Malika Fonseca on 05-09-2025 Immature granulocytes/100 WBC (Bld) 0.600 % 0.0-0.9 [facility] MCV (mean corpuscular volume ) determinationOrdered By: Malika Fonseca on 05-09-2025 MCV (RBC) [Entitic vol] 91.9 fL 80-94 [facility] Mean corpuscular hemoglobin (MCH) determinationOrdered By: Malika Fonseca on 05-09-2025 MCH (RBC) [Entitic mass] 29.3 pg 27.0-32.0 [facility] Monocyte percentageOrdered B y: Malika Fonseca on 05-09-2025 Monocytes/100 WBC (Bld) 1.6 % 0-10 [facility] Neutrophil percentageOrdered By: Malika Fonseca on 05-09-2025 Neutrophils/100 WBC (Bld) 93.3 % High 47-70 [facility] Platelet countOrdered By: Rogerio Fonseca on 05-09-2025 Platelets (Bld) [#/Vol] 153 10*3/uL 150-450 [facility] Potassium measurement (mass/ volume)Ordered By: Malika Fonseca on 05-09-2025 Potassium (Unsp spec) [Mass/Vol] 4.1 mmol/L 3.3-5.1 [facility] Prothrombin Time w/INRon INR Normal [facility] Comment on above: Result Comment: Ray toussaint via OM: Ordered Performed By: #### L 300.3900 ####[facility] [address] [place], [place], [address] PROTIME Normal 11.7-14.9 [facility] Comment on above: Result Comment: Ray toussaint via OM: Ordered Performed By: #### L 300.3900 ####[facility] [address] [place], [place], [id number] RBC Auto (Bld) [#/Vol]Ordere d By: Malika Fonseca on 05-09-2025 RBC (Bld) [#/Vol] 2.59 10*6/uL Low 4.6-6.2 [facility] Serum creatinine measurement (mass/volume)Ordered By: Malika Fonseca on 05-09-2025 Creatinine [Mass/Vol] 2.87 mg/dL High 0.70-1.20 [facility] Serum glucose measurement (m ass/volume)Ordered By: Malika Fonseca on 05-09-2025 Glucose [Mass/Vol] 336 mg/dL High 70-99 [facility] Serum or plasma calcium nikkie urement (mass/volume)Ordered By: Malika Fonseca on 05-09-2025 Calcium [Mass/Vol] 8.3 mg/dL 7.6-11.0 [facility] Serum or plasma urea nitroge n measurement (mass/volume)Ordered By: Malika Fonseca on 05-09-2025 Urea nitrogen [Mass/Vol] 80 mg/dL High 4-19 [facility] Sodium levelOrdered By: Malika Fonseca on 05-09-2025 Sodium [Moles/Vol] 140 mmol/L 133-145 [facility] White blood cell (WBC) count Ordered By: Malika Fonseca on 05-09-2025 WBC (Bld) [#/Vol] 6.3 10*3/uL 4.4-11.0 [facility] Basic Metabolic Profile (BMP )on 05-08-2025 BUN/CRE 29.0 RATIO High 10-20 [facility] Comment on above: Performed By: #### L 500.2500, L503.6030, L501.9520, L503.6550, L503.0106, L100.0100 ####[facility] [address] [place], [address] Calcium [Mass/Vol] 8.6 mg/dL Normal 7.6-11.0 [facility] Comment on above: Performed By: #### L 500.2500, L503.6030, L501.9520, L503.6550, L503.0106, L100.0100 ####[facility] [address] [place], [address] Chloride [Moles/Vol] 103 mmol/L Normal 98-108 [facility] Comment on above: Performed By: #### L 500.2500, L503.6030, L501.9520, L503.6550, L503.0106, L100.0100 ####[facility] [address] [place], [address] CO2 [Moles/Vol] 23.2 mmol/L Normal 21.0-32.0 [facility] Comment on above: Performed By: #### L 500.2500, L503.6030, L501.9520, L503.6550, L503.0106, L100.0100 ####[facility] [address] [place], [address] Creatinine [Mass/Vol] 2.91 mg/dL High 0.70-1.20 [facility] Comment on above: Performed By: #### L 500.2500, L503.6030, L501.9520, L503.6550, L503.0106, L100.0100 ####[facility] [address] [place], [address] ECRCL 18.61 ml/min Low 50-250 [facility] Comment on above: Performed By: #### L 500.2500, L503.6030, L501.9520, L503.6550, L503.0106, L100.0100 ####[facility] [address] [place], [address] GAP 14 Normal 5-15 [facility] Comment on above: Performed By: #### L 500.2500, L503.6030, L501.9520, L503.6550, L503.0106, L100.0100 ####[facility] [address] [place], [address] GFR/1.73 sq M.predicted among non-blacks MDRD (S/P/Bld) [Vol rate/Area] 21 mL/min/{1.73_m2} Low >60 [facility] Comment on above: Result Comment: mL/m in/1.73m2 CKD-EPI Creatinine Equation (2020) Performed By: #### L 500.2500, L503.6030, L501.9520, L503.6550, L503.0106, L100.0100 ####[facility] [address] [place], [address] Glucose [Mass/Vol] 247 mg/dL High 70-99 [facility] Comment on above: Performed By: #### L 500.2500, L503.6030, L501.9520, L503.6550, L503.0106, L100.0100 ####[facility] [address] [place], [address] Potassium [Moles/Vol] 4.5 mmol/L Normal 3.3-5.1 [facility] Comment on above: Performed By: #### L 500.2500, L503.6030, L501.9520, L503.6550, L503.0106, L100.0100 ####[facility] [address] [place], [address] Sodium [Moles/Vol] 140 mmol/L Normal 133-145 [facility] Comment on above: Performed By: #### L 500.2500, L503.6030, L501.9520, L503.6550, L503.0106, L100.0100 ####[facility] [address] [place], [address] Urea nitrogen [Mass/Vol] 85 mg/dL High 4-19 [facility] Comment on above: Performed By: #### L 500.2500, L503.6030, L501.9520, L503.6550, L503.0106, L100.0100 ####[facility] [address] [place], [address] Bedside Glucoseon 05-08-2024 FINGERSTICK GLU 315 mg/dL High 74-106 [facility] Comment on above: Result Comment: ADITI GEMENT OF PATIENT CARE PER NURSING PROTOCOL Performed By: #### L 501.080 ####[facility] [address] [place], [address] FINGERSTICK GLU 247 mg/dL High -106 [facility] Comment on above: Result Comment: ADITI GEMENT OF PATIENT CARE PER NURSING PROTOCOL Performed By: #### L 501.080 ####[facility] [address] [place], [address] FINGERSTICK GLU 227 mg/dL High -106 [facility] Comment on above: Result Comment: ADITI GEMENT OF PATIENT CARE PER NURSING PROTOCOL Performed By: #### L 501.080 ####[facility] [address] [place], [address] FINGERSTICK GLU 241 mg/dL High [address] [place] [address] Comment on above: Result Comment: ADITI GEMENT OF PATIENT CARE PER NURSING PROTOCOL Performed By: #### L 501.080 ####[facility] [address] [place], [address] CBC W/Diff, Automatedon 07-0 Absolute Lymph 1.03 X10 3/uL Normal 0.83-4.51 [facility] Comment on above: Performed By: #### L 500.2500, L503.6030, L501.9520, L503.6550, L503.0106, L100.0100 ####[facility] [address] [place], [address] Absolute Neut 10.0 X10 3/uL High 2.0-7.7 [facility] Comment on above: Performed By: #### L 500.2500, L503.6030, L501.9520, L503.6550, L503.0106, L100.0100 ####[facility] [address] [place], [address] Basophils/100 WBC (Bld) 0.3 % Normal 0-1 [facility] Comment on above: Performed By: #### L 500.2500, L503.6030, L501.9520, L503.6550, L503.0106, L100.0100 ####[facility] [address] [place], [address] Eosinophils/100 WBC (Bld) 0.6 % Normal 0-5 [facility] Comment on above: Performed By: #### L 500.2500, L503.6030, L501.9520, L503.6550, L503.0106, L100.0100 ####[facility] [address] [place], [address] Erythrocyte distribution width (RBC) [Ratio] 14.3 % Normal 11.6-14.6 [facility] Comment on above: Performed By: #### L 500.2500, L503.6030, L501.9520, L503.6550, L503.0106, L100.0100 ####[facility] [address] [place], [address] Hematocrit (Bld) [Volume fraction] 27.0 % Low 40-54 [facility] Comment on above: Performed By: #### L 500.2500, L503.6030, L501.9520, L503.6550, L503.0106, L100.0100 ####[facility] [address] [place], [address] Hemoglobin (Bld) [Mass/Vol] 8.6 g/dL Low 13.0-16.5 [facility] Comment on above: Performed By: #### L 500.2500, L503.6030, L501.9520, L503.6550, L503.0106, L100.0100 ####[facility] [address] [place], [address] IG% 0.700 Normal 0.0-0.9 [facility] Comment on above: Result Comment: IG% - Immature Granulocytes (promyelocytes, myelocytes andmetamyelocytes) > 1% indicates that a LEFT SHIFT is Present. Performed By: #### L 500.2500, L503.6030, L501.9520, L503.6550, L503.0106, L100.0100 ####[facility] [address] [place], [address] Lymphocytes/100 WBC (Bld) 8.7 % Low 19-41 [facility] Comment on above: Performed By: #### L 500.2500, L503.6030, L501.9520, L503.6550, L503.0106, L100.0100 ####[facility] [address] [place], [address] MCH (RBC) [Entitic mass] 29.2 pg Normal 27.0-32.0 [facility] Comment on above: Performed By: #### L 500.2500, L503.6030, L501.9520, L503.6550, L503.0106, L100.0100 ####[facility] [address] [place], [address] MCHC (RBC) [Mass/Vol] 31.9 g/dL Low 32-36 [facility] Comment on above: Performed By: #### L 500.2500, L503.6030, L501.9520, L503.6550, L503.0106, L100.0100 ####[facility] [address] [place], [address] MCV (RBC) [Entitic vol] 91.5 fL Normal 80-94 [facility] Comment on above: Performed By: #### L 500.2500, L503.6030, L501.9520, L503.6550, L503.0106, L100.0100 ####[facility] [address] [place], [address] Monocytes/100 WBC (Bld) 4.6 % Normal 0-10 [facility] Comment on above: Performed By: #### L 500.2500, L503.6030, L501.9520, L503.6550, L503.0106, L100.0100 ####[facility] [address] [place], [address] Neutrophils/100 WBC (Bld) 85.1 % High 47-70 [facility] Comment on above: Performed By: #### L 500.2500, L503.6030, L501.9520, L503.6550, L503.0106, L100.0100 ####[facility] [address] [place], [address] Nucleated RBC (Bld) [#/Vol] 0 10*3/uL Normal 0-5 [facility] Comment on above: Performed By: #### L 500.2500, L503.6030, L501.9520, L503.6550, L503.0106, L100.0100 ####[facility] [address] [place], [address] Platelet mean volume (Bld) [Entitic vol] 11.0 fL Normal 6.2-12.0 [facility] Comment on above: Performed By: #### L 500.2500, L503.6030, L501.9520, L503.6550, L503.0106, L100.0100 ####[facility] [address] [place], [address] Platelets (Bld) [#/Vol] 193 10*3/uL Normal 150-450 [facility] Comment on above: Performed By: #### L 500.2500, L503.6030, L501.9520, L503.6550, L503.0106, L100.0100 ####[facility] [address] [place], [address] RBC (Bld) [#/Vol] 2.95 10*6/uL Low 4.6-6.2 [facility] Comment on above: Performed By: #### L 500.2500, L503.6030, L501.9520, L503.6550, L503.0106, L100.0100 ####[facility] [address] [place], [address] RDW SD 47.8 fl High 35.1-43.9 [facility] Comment on above: Performed By: #### L 500.2500, L503.6030, L501.9520, L503.6550, L503.0106, L100.0100 ####[facility] [address] [place], [address] WBC (Bld) [#/Vol] 11.8 10*3/uL High 4.4-11.0 [facility] Comment on above: Performed By: #### L 500.2500, L503.6030, L501.9520, L503.6550, L503.0106, L100.0100 ####[facility] [address] [place], [address] Culture, Blood (WB)on 2024 CUB Blood cultures x2, from two different sites No growth in 48 hours. Normal [facility] Comment on above: Performed By: #### L 300.3900, L100.0100, M200.1000, L500.4050, L503.7505, L300.4310, L503.6005 ####[facility] [address] [place], [address] Erythrocyte folate measureme nt with hematocritOrdered By: Malika Fonseca on 05-08-2025 Hematocrit (Bld) [Volume fraction] 28.6 % Low 37.5-51.0 [facility] Ferritinon 05-08-2025 Ferritin [Mass/Vol] 92 ng/mL Normal 37-417 [facility] Comment on above: Performed By: #### L 500.2500, L503.6030, L501.9520, L503.6550, L503.0106, L100.0100 ####[facility] [address] [place], [address] Iron measurement (mass/mass) Ordered By: Malika Fonseca on 05-08-2025 Iron (Unsp spec) [Mass/Mass] 22 ug/dL Low 65-175 [facility] Iron+Iron Binding Capacityon 05-08-2025 Iron [Mass/Vol] 22 ug/dL Low 65-175 [facility] Comment on above: Performed By: #### L 500.2500, L503.6030, L501.9520, L503.6550, L503.0106, L100.0100 ####[facility] [address] [place], [address] IRON SATURATION 7.0 Low 9-55 [facility] Comment on above: Performed By: #### L 500.2500, L503.6030, L501.9520, L503.6550, L503.0106, L100.0100 ####[facility] [address] [place], [address] TIBC 309 ug/dL Normal 250-450 [facility] Comment on above: Performed By: #### L 500.2500, L503.6030, L501.9520, L503.6550, L503.0106, L100.0100 ####[facility] [address] [place], [address] UIBC 287 ug/dL Normal 228-428 [facility] Comment on above: Performed By: #### L 500.2500, L503.6030, L501.9520, L503.6550, L503.0106, L100.0100 ####[facility] [address] [place], [address] No Panel InformationOrdered By: Malika Fonseca on 05-08-2025 287 ug/dL 228-428 [facility] Prothrombin Time w/INRon INR Normal [facility] Comment on above: Result Comment: Canjonathan elled via OM: MD Ordered Performed By: #### L 300.3900 ####[facility] [address] [place], [address] PROTIME Normal 11.7-14.9 [facility] Comment on above: Result Comment: Ray elloumar via OM: MD Ordered Performed By: #### L 300.3900 ####[facility] [address] [place], [address] Serum or plasma ferritin heriberto surement (mass/volume)Ordered By: Malika Fonseca on 05-08-2025 Ferritin [Mass/Vol] 92 ng/mL 37-417 [facility] Serum or plasma iron saturat ion measurement (mass fraction)Ordered By: Malika Fonseca on 05-08-2025 Iron saturation [Mass fraction] 7.0 % Low 9-55 [facility] TSH DL <= 0.005 mIU/L QnOrde red By: Malika Fonseca on 05-08-2025 TSH Qn 0.979 uIU/mL 0.300-4.200 [facility] Thyroid Stim Hormone (TSH)on 05-08-2025 TSH 0.979 uIU/mL Normal 0.300-4.200 [facility] Comment on above: Performed By: #### L 500.2500, L503.6030, L501.9520, L503.6550, L503.0106, L100.0100 ####[facility] [address] [place], [address] Urine Cultureon 05-08-2025 URC Mixed Gram Positive Organisms [place] Count 25,000-50,000 MIXC Mixed contaminants. Submit a new specimen if indicated. Normal [facility] Comment on above: Performed By: #### M 100.2200, L400.0001 ####[facility] [address] [place], [address] Vitamin B12on 05-08-2025 Cobalamin (Vitamin B12) [Mass/Vol] 670 pg/mL Normal 180-914 [facility] Comment on above: Performed By: #### L 500.2500, L503.6030, L501.9520, L503.6550, L503.0106, L100.0100 ####[facility] [address] [place], [address] Vitamin B12 ser/plasOrdered By: Malika Fonseca on 05-08-2025 Cobalamin (Vitamin B12) [Mass/Vol] 670 pg/mL 180-914 [facility] Bedside Glucoseon 05-07-2025 FINGERSTICK GLU 344 mg/dL High 74-106 [facility] Comment on above: Result Comment: ADITI GEMENT OF PATIENT CARE PER NURSING PROTOCOL Performed By: #### L 501.080 ####[facility] [address] [place], [address] FINGERSTICK GLU 342 mg/dL High 74-106 [facility] Comment on above: Result Comment: ADITI GEMENT OF PATIENT CARE PER NURSING PROTOCOL Performed By: #### L 501.080 ####[facility] [address] [place], [address] FINGERSTICK GLU 315 mg/dL High 74-106 [facility] Comment on above: Result Comment: ADITI GEMENT OF PATIENT CARE PER NURSING PROTOCOL Performed By: #### L 501.080 ####[facility] [address] [place], [address] FINGERSTICK GLU 333 mg/dL High 74-106 [facility] Comment on above: Result Comment: ADITI GEMENT OF PATIENT CARE PER NURSING PROTOCOL Performed By: #### L 501.080 ####[facility] [address] [place], [address] Bilirubin, totalOrdered By: Carlita Raygoza on 05-07-2025 Bilirubin [Mass/Vol] 0.46 mg/dL 0.00-1.30 [facility] CBC W/Diff, Automatedon Absolute Lymph 1.13 X10 3/uL Normal 0.83-4.51 [facility] Comment on above: Performed By: #### L 300.3900, L100.0100 ####[facility] [address] [place], [address] Absolute Neut 6.9 X10 3/uL Normal 2.0-7.7 [facility] Comment on above: Performed By: #### L 300.3900, L100.0100 ####[facility] [address] [place], [address] Basophils/100 WBC (Bld) 0.2 % Normal 0-1 [facility] Comment on above: Performed By: #### L 300.3900, L100.0100 ####[facility] [address] [place], [address] Eosinophils/100 WBC (Bld) 0.0 % Normal 0-5 [facility] Comment on above: Performed By: #### L 300.3900, L100.0100 ####[facility] [address] [place], [address] Erythrocyte distribution width (RBC) [Ratio] 14.5 % Normal 11.6-14.6 [facility] Comment on above: Performed By: #### L 300.3900, L100.0100 ####[facility] [address] [place], [address] Hematocrit (Bld) [Volume fraction] 22.4 % Low 40-54 [facility] Comment on above: Performed By: #### L 300.3900, L100.0100 ####[facility] [address] [place], [address] Hemoglobin (Bld) [Mass/Vol] 7.2 g/dL Low 13.0-16.5 [facility] Comment on above: Performed By: #### L 300.3900, L100.0100 ####[facility] [address] [place], [address] IG% 0.700 Normal 0.0-0.9 [facility] Comment on above: Result Comment: IG% - Immature Granulocytes (promyelocytes, myelocytes andmetamyelocytes) > 1% indicates that a LEFT SHIFT is Present. Performed By: #### L 300.3900, L100.0100 ####[facility] [address] [place], [address] Lymphocytes/100 WBC (Bld) 13.1 % Low 19-41 [facility] Comment on above: Performed By: #### L 300.3900, L100.0100 ####[facility] [address] [place], [address] MCH (RBC) [Entitic mass] 29.6 pg Normal 27.0-32.0 [facility] Comment on above: Performed By: #### L 300.3900, L100.0100 ####[facility] [address] [place], [address] MCHC (RBC) [Mass/Vol] 32.1 g/dL Normal 32-36 [facility] Comment on above: Performed By: #### L 300.3900, L100.0100 ####[facility] [address] [place], [address] MCV (RBC) [Entitic vol] 92.2 fL Normal 80-94 [facility] Comment on above: Performed By: #### L 300.3900, L100.0100 ####[facility] [address] [place], [address] Monocytes/100 WBC (Bld) 6.5 % Normal 0-10 [facility] Comment on above: Performed By: #### L 300.3900, L100.0100 ####[facility] [address] [place], [address] Neutrophils/100 WBC (Bld) 79.5 % High 47-70 [facility] Comment on above: Performed By: #### L 300.3900, L100.0100 ####[facility] [address] [place], [address] Nucleated RBC (Bld) [#/Vol] 0 10*3/uL Normal 0-5 [facility] Comment on above: Performed By: #### L 300.3900, L100.0100 ####[facility] [address] [place], [address] Platelet mean volume (Bld) [Entitic vol] 11.4 fL Normal 6.2-12.0 [facility] Comment on above: Performed By: #### L 300.3900, L100.0100 ####[facility] [address] [place], [address] Platelets (Bld) [#/Vol] 154 10*3/uL Normal 150-450 [facility] Comment on above: Performed By: #### L 300.3900, L100.0100 ####[facility] [address] [place], [address] RBC (Bld) [#/Vol] 2.43 10*6/uL Low 4.6-6.2 [facility] Comment on above: Performed By: #### L 300.3900, L100.0100 ####[facility] [address] [place], [address] RDW SD 48.5 fl High 35.1-43.9 [facility] Comment on above: Performed By: #### L 300.3900, L100.0100 ####[facility] [address] [place], [address] WBC (Bld) [#/Vol] 8.6 10*3/uL Normal 4.4-11.0 [facility] Comment on above: Performed By: #### L 300.3900, L100.0100 ####[facility] [address] [place], [address] [facility] Albumin [Mass/Vol] 3.2 g/dL Low 3.4-4.8 [facility] Comment on above: Performed By: #### L 500.4050, L501.2300, L501.5200 ####[facility] [address] [place], [address] Albumin/Globulin [Mass ratio] 1.6 {ratio} Normal 0.9-2.4 [facility] Comment on above: Performed By: #### L 500.4050, L501.2300, L501.5200 ####[facility] [address] [place], [address] ALK PHOS 67 U/L Normal 40-129 [facility] Comment on above: Performed By: #### L 500.4050, L501.2300, L501.5200 ####[facility] [address] [place], [address] ALT [Catalytic activity/Vol] 35 U/L Normal <=46 [facility] Comment on above: Performed By: #### L 500.4050, L501.2300, L501.5200 ####[facility] [address] [place], [address] AST [Catalytic activity/Vol] 34 U/L Normal <=37 [facility] Comment on above: Performed By: #### L 500.4050, L501.2300, L501.5200 ####[facility] [address] [place], [address] Bilirubin [Mass/Vol] 0.46 mg/dL Normal 0.00-1.30 [facility] Comment on above: Performed By: #### L 500.4050, L501.2300, L501.5200 ####[facility] [address] [place], [address] BUN/CRE 30.4 RATIO High 10-20 [facility] Comment on above: Performed By: #### L 500.4050, L501.2300, L501.5200 ####[facility] [address] [place], [address] Calcium [Mass/Vol] 8.0 mg/dL Normal 7.6-11.0 [facility] Comment on above: Performed By: #### L 500.4050, L501.2300, L501.5200 ####[facility] [address] [place], [address] Chloride [Moles/Vol] 100 mmol/L Normal 98-108 [facility] Comment on above: Performed By: #### L 500.4050, L501.2300, L501.5200 ####[facility] [address] [place], [address] CO2 [Moles/Vol] 22.9 mmol/L Normal 21.0-32.0 [facility] Comment on above: Performed By: #### L 500.4050, L501.2300, L501.5200 ####[facility] [address] [place], [address] Creatinine [Mass/Vol] 3.03 mg/dL High 0.70-1.20 [facility] Comment on above: Performed By: #### L 500.4050, L501.2300, L501.5200 ####[facility] [address] [place], [address] ECRCL 17.88 ml/min Low 50-250 [facility] Comment on above: Performed By: #### L 500.4050, L501.2300, L501.5200 ####[facility] [address] [place], [address] GAP 14 Normal 5-15 [facility] Comment on above: Performed By: #### L 500.4050, L501.2300, L501.5200 ####[facility] [address] [place], [address] GFR/1.73 sq M.predicted among non-blacks MDRD (S/P/Bld) [Vol rate/Area] 20 mL/min/{1.73_m2} Low >60 [facility] Comment on above: Result Comment: mL/m in/1.73m2 CKD-EPI Creatinine Equation (2020) Performed By: #### L 500.4050, L501.2300, L501.5200 ####[facility] [address] [place], [address] Globulin (S) [Mass/Vol] 2.0 g/dL Low 2.2-4.2 [facility] Comment on above: Performed By: #### L 500.4050, L501.2300, L501.5200 ####[facility] [address] [place], [address] Glucose [Mass/Vol] 407 mg/dL High 70-99 [facility] Comment on above: Performed By: #### L 500.4050, L501.2300, L501.5200 ####[facility] [address] [place], [address] Potassium [Moles/Vol] 5.0 mmol/L Normal 3.3-5.1 [facility] Comment on above: Performed By: #### L 500.4050, L501.2300, L501.5200 ####[facility] [address] [place], [address] Sodium [Moles/Vol] 136 mmol/L Normal 133-145 [facility] Comment on above: Performed By: #### L 500.4050, L501.2300, L501.5200 ####[facility] [address] [place], [address] T PROT 5.2 g/dL Low 5.9-8.4 [facility] Comment on above: Performed By: #### L 500.4050, L501.2300, L501.5200 ####[facility] [address] [place], [address] Urea nitrogen [Mass/Vol] 92 mg/dL High 4-19 [facility] Comment on above: Performed By: #### L 500.4050, L501.2300, L501.5200 ####[facility] [address] [place], [address] Electrocardiogram reportOrde red By: Bernardo Davis on 05-07-2025 EKG study [facility] Other Phone: Magnesiumon 05-07-2025 Magnesium [Mass/Vol] 2.6 mg/dL High 1.5-2.2 [facility] Comment on above: Performed By: #### L 500.4050, L501.2300, L501.5200 ####[facility] [address] [place], [address] Magnesium measurement (mass/ volume)Ordered By: Carlita Raygoza on 05-07-2025 Magnesium (Unsp spec) [Mass/Vol] 2.6 mg/dL High 1.5-2.2 [facility] No Panel InformationOrdered By: Carlita Raygoza on 05-07-2025 34 U/L <38 [facility] Phosphoruson 05-07-2025 Phosphate [Mass/Vol] 6.1 mg/dL High 2.7-4.5 [facility] Comment on above: Performed By: #### L 500.4050, L501.2300, L501.5200 ####[facility] [address] [place], [address] Prothrombin Time w/INRon INR Coag (PPP) [Relative time] 1.1 {INR} Normal [facility] Comment on above: Performed By: #### L 300.3900, L100.0100 ####[facility] [address] [place], [address] PT Coag (PPP) [Time] 14.9 s Normal 11.7-14.9 [facility] Comment on above: Performed By: #### L 300.3900, L100.0100 ####[facility] [address] [place], [address] Prothrombin timeOrdered By: Carlita Raygoza on 05-07-2025 PT Coag (PPP) [Time] 14.9 s 11.7-14.9 [facility] Serum globulin measurementOr dered By: Carlita Raygoza on 05-07-2025 Globulin (S) [Mass/Vol] 2.0 g/dL Low 2.2-4.2 [facility] Serum or plasma alanine clayton otransferase (ALT) measurementOrdered By: Carlita Raygoza on 05-07-2025 ALT [Catalytic activity/Vol] 35 U/L <47 [facility] Serum or plasma albumin nikkie urement (mass/volume)Ordered By: Carlita Raygoza on 05-07-2025 Albumin [Mass/Vol] 3.2 g/dL Low 3.4-4.8 [facility] Serum or plasma albumin/glob ulin mass ratioOrdered By: Carlita Raygoza on 05-07-2025 Albumin/Globulin [Mass ratio] 1.6 {ratio} 0.9-2.4 [facility] Serum or plasma alkaline dwight sphatase measurementOrdered By: Carlita Raygoza on 05-07-2025 ALP [Catalytic activity/Vol] 67 U/L 40-129 [facility] Total proteinOrdered By: Trixie Raygoza on 05-07-2025 Protein [Mass/Vol] 5.2 g/dL Low 5.9-8.4 [facility] Assessment of wrist artery p atency prior to arterial punctureOrdered By: Carlita Raygoza on 05-06-2025 Arterial patency Wrist artery --pre arterial puncture Positive [facility] Bedside Glucoseon 05-06-2025 FINGERSTICK GLU 444 mg/dL High 74-106 [facility] Comment on above: Result Comment: ADITI GEMENT OF PATIENT CARE PER NURSING PROTOCOL Performed By: #### L 501.080 ####[facility] [address] [place], [address] FINGERSTICK GLU 421 mg/dL High [address] [facility] Comment on above: Result Comment: ADITI GEMENT OF PATIENT CARE PER NURSING PROTOCOL Performed By: #### L 501.080 ####[facility] [address] [place], [address] FINGERSTICK GLU 256 mg/dL High 74-106 [facility] Comment on above: Result Comment: ADITI GEMENT OF PATIENT CARE PER NURSING PROTOCOL Performed By: #### L 501.080 ####[facility] [address] [place], [address] FINGERSTICK GLU 204 mg/dL High [address] [place] [address] Comment on above: Result Comment: ADITI GEMENT OF PATIENT CARE PER NURSING PROTOCOL Performed By: #### L 501.080 ####[facility] [address] [place], [address] Blood Gases by CPSon 025 FILI TEST Positive Normal [facility] Comment on above: Performed By: #### L 9000.0800 ####[facility] [address] [place], [address] Base excess Calc (Bld) [Moles/Vol] 4 mmol/L High -2 to +2 [facility] Comment on above: Performed By: #### L 9000.0800 ####[facility] [address] [place], [address] Blood Gas Type ART Normal [facility] Comment on above: Performed By: #### L 9000.0800 ####[facility] [address] [place], [address] CO2 [Moles/Vol] 29 mmol/L Normal [facility] Comment on above: Performed By: #### L 9000.0800 ####[facility] [address] [place], [address] Comment 10/08 Normal [facility] Comment on above: Performed By: #### L 9000.0800 ####[facility] [address] [place], [address] FI02 30.0 Normal [facility] Comment on above: Performed By: #### L 9000.0800 ####[facility] [address] [place], [address] HCO3 (Bld) [Moles/Vol] 27.5 mmol/L High 22-26 [facility] Comment on above: Performed By: #### L 9000.0800 ####[facility] [address] [place], [address] Normal [facility] Comment on above: Performed By: #### L 9000.0800 ####[facility] [address] [place], [address] O2 Delivery Dev BiPAP Normal [facility] Comment on above: Performed By: #### L 9000.0800 ####[facility] [address] [place], [address] pCO2 34.9 mmHg Low 35-45 [facility] Comment on above: Performed By: #### L 9000.0800 ####[facility] [address] [place], [address] PEEP 8 Normal [facility] Comment on above: Performed By: #### L 9000.0800 ####[facility] [address] [place], [address] pH (Bld) 7.51 [pH] High 7.35-7.45 [facility] Comment on above: Performed By: #### L 9000.0800 ####[facility] [address] [place], [address] PO2 95 mmHG Normal 75-100 [facility] Comment on above: Performed By: #### L 9000.0800 ####[facility] [address] [place], [address] RR 12 Normal [facility] Comment on above: Performed By: #### L 9000.0800 ####[facility] [address] [place], [address] SITE R Radial Normal [facility] Comment on above: Performed By: #### L 9000.0800 ####[facility] [address] [place], [address] SO2 98 Normal 95-99 [facility] Comment on above: Performed By: #### L 9000.0800 ####[facility] [address] [place], [address] FILI TEST Positive Normal [facility] Comment on above: Performed By: #### L 9000.0800 ####[facility] [address] [place], [address] Base excess Calc (Bld) [Moles/Vol] 4 mmol/L High -2 to +2 [facility] Comment on above: Performed By: #### L 9000.0800 ####[facility] [address] [place], [address] Blood Gas Type ART Normal [facility] Comment on above: Performed By: #### L 9000.0800 ####[facility] [address] [place], [address] CO2 [Moles/Vol] 29 mmol/L Normal [facility] Comment on above: Performed By: #### L 9000.0800 ####[facility] [address] [place], [address] Comment 14 8 Normal [facility] Comment on above: Performed By: #### L 9000.0800 ####[facility] [address] [place], [address] FI02 50.0 Normal [facility] Comment on above: Performed By: #### L 9000.0800 ####[facility] [address] [place], [address] HCO3 (Bld) [Moles/Vol] 27.7 mmol/L High 22-26 [facility] Comment on above: Performed By: #### L 9000.0800 ####[facility] [address] [place], [address] Mode Not entered Normal [facility] Comment on above: Performed By: #### L 9000.0800 ####[facility] [address] [place], [address] O2 Delivery Dev BiPAP Normal [facility] Comment on above: Performed By: #### L 9000.0800 ####[facility] [address] [place], [address] pCO2 41.3 mmHg Normal 35-45 [facility] Comment on above: Performed By: #### L 9000.0800 ####[facility] [address] [place], [address] PEEP 8 Normal [facility] Comment on above: Performed By: #### L 9000.0800 ####[facility] [address] [place], [address] pH (Bld) 7.44 [pH] Normal 7.35-7.45 [facility] Comment on above: Performed By: #### L 9000.0800 ####[facility] [address] [place], [address] PO2 73 mmHG Low 75-100 [facility] Comment on above: Performed By: #### L 9000.0800 ####[facility] [address] [place], [address] RR 12 Normal [facility] Comment on above: Performed By: #### L 9000.0800 ####[facility] [address] [place], [address] SITE L Radial Normal [facility] Comment on above: Performed By: #### L 9000.0800 ####[facility] [address] [place], [address] SO2 95 Normal 95-99 [facility] Comment on above: Performed By: #### L 9000.0800 ####[facility] [address] [place], [address] Blood base excess determinat ionOrdered By: Carlita Raygoza on 05-06-2025 Base excess Calc (BldV) [Moles/Vol] 4 mmol/L High -2-2 [facility] Blood bicarbonate measuremen tOrdered By: Carlita Raygoza on 05-06-2025 HCO3 (Bld) [Moles/Vol] 27.5 mmol/L High 22-26 [facility] CBC W/Diff, Automatedon 07-0 Absolute Lymph 0.42 X10 3/uL Low 0.83-4.51 [facility] Comment on above: Performed By: #### L 500.4050, L501.2300, L503.7505, L100.0100 ####[facility] [address] [place], [address] Absolute Neut 11.6 X10 3/uL High 2.0-7.7 [facility] Comment on above: Performed By: #### L 500.4050, L501.2300, L503.7505, L100.0100 ####[facility] [address] [place], [address] Basophils/100 WBC (Bld) 0.1 % Normal 0-1 [facility] Comment on above: Performed By: #### L 500.4050, L501.2300, L503.7505, L100.0100 ####[facility] [address] [place], [address] Eosinophils/100 WBC (Bld) 0.0 % Normal 0-5 [facility] Comment on above: Performed By: #### L 500.4050, L501.2300, L503.7505, L100.0100 ####[facility] [address] [place], [address] Erythrocyte distribution width (RBC) [Ratio] 14.2 % Normal 11.6-14.6 [facility] Comment on above: Performed By: #### L 500.4050, L501.2300, L503.7505, L100.0100 ####[facility] [address] [place], [address] Hematocrit (Bld) [Volume fraction] 25.8 % Low 40-54 [facility] Comment on above: Performed By: #### L 500.4050, L501.2300, L503.7505, L100.0100 ####[facility] [address] [place], [address] Hemoglobin (Bld) [Mass/Vol] 8.2 g/dL Low 13.0-16.5 [facility] Comment on above: Performed By: #### L 500.4050, L501.2300, L503.7505, L100.0100 ####[facility] [address] [place], [address] IG% 0.500 Normal 0.0-0.9 [facility] Comment on above: Result Comment: IG% - Immature Granulocytes (promyelocytes, myelocytes andmetamyelocytes) > 1% indicates that a LEFT SHIFT is Present. Performed By: #### L 500.4050, L501.2300, L503.7505, L100.0100 ####[facility] [address] [place], [address] Lymphocytes/100 WBC (Bld) 3.4 % Low 19-41 [facility] Comment on above: Performed By: #### L 500.4050, L501.2300, L503.7505, L100.0100 ####[facility] [address] [place], [address] MCH (RBC) [Entitic mass] 29.5 pg Normal 27.0-32.0 [facility] Comment on above: Performed By: #### L 500.4050, L501.2300, L503.7505, L100.0100 ####[facility] [address] [place], [address] MCHC (RBC) [Mass/Vol] 31.8 g/dL Low 32-36 [facility] Comment on above: Performed By: #### L 500.4050, L501.2300, L503.7505, L100.0100 ####[facility] [address] [place], [address] MCV (RBC) [Entitic vol] 92.8 fL Normal 80-94 [facility] Comment on above: Performed By: #### L 500.4050, L501.2300, L503.7505, L100.0100 ####[facility] [address] [place], [address] Monocytes/100 WBC (Bld) 1.7 % Normal 0-10 [facility] Comment on above: Performed By: #### L 500.4050, L501.2300, L503.7505, L100.0100 ####[facility] [address] [place], [address] Neutrophils/100 WBC (Bld) 94.3 % High 47-70 [facility] Comment on above: Performed By: #### L 500.4050, L501.2300, L503.7505, L100.0100 ####[facility] [address] [place], [address] Nucleated RBC (Bld) [#/Vol] 0 10*3/uL Normal 0-5 [facility] Comment on above: Performed By: #### L 500.4050, L501.2300, L503.7505, L100.0100 ####[facility] [address] [place], [address] Platelet mean volume (Bld) [Entitic vol] 10.9 fL Normal 6.2-12.0 [facility] Comment on above: Performed By: #### L 500.4050, L501.2300, L503.7505, L100.0100 ####[facility] [address] [place], [address] Platelets (Bld) [#/Vol] 178 10*3/uL Normal 150-450 [facility] Comment on above: Performed By: #### L 500.4050, L501.2300, L503.7505, L100.0100 ####[facility] [address] [place], [address] RBC (Bld) [#/Vol] 2.78 10*6/uL Low 4.6-6.2 [facility] Comment on above: Performed By: #### L 500.4050, L501.2300, L503.7505, L100.0100 ####[facility] [address] [place], [address] RDW SD 48.0 fl High 35.1-43.9 [facility] Comment on above: Performed By: #### L 500.4050, L501.2300, L503.7505, L100.0100 ####[facility] [address] [place], [address] WBC (Bld) [#/Vol] 12.3 10*3/uL High 4.4-11.0 [facility] Comment on above: Performed By: #### L 500.4050, L501.2300, L503.7505, L100.0100 ####[facility] [address] [place], [address] Comprehensive Metabolic Prof [facility] 05-06-2025 Albumin [Mass/Vol] 3.3 g/dL Low 3.4-4.8 [facility] Comment on above: Performed By: #### L 500.4050, L501.2300, L503.7505, L100.0100 ####[facility] [address] [place], [address] Albumin/Globulin [Mass ratio] 1.4 {ratio} Normal 0.9-2.4 [facility] Comment on above: Performed By: #### L 500.4050, L501.2300, L503.7505, L100.0100 ####[facility] [address] [place], [address] ALK PHOS 72 U/L Normal 40-129 [facility] Comment on above: Performed By: #### L 500.4050, L501.2300, L503.7505, L100.0100 ####[facility] [address] [place], [address] ALT [Catalytic activity/Vol] 38 U/L Normal <=46 [facility] Comment on above: Performed By: #### L 500.4050, L501.2300, L503.7505, L100.0100 ####[facility] [address] [place], [address] AST [Catalytic activity/Vol] 31 U/L Normal <=37 [facility] Comment on above: Performed By: #### L 500.4050, L501.2300, L503.7505, L100.0100 ####[facility] [address] [place], [address] Bilirubin [Mass/Vol] 0.34 mg/dL Normal 0.00-1.30 [facility] Comment on above: Performed By: #### L 500.4050, L501.2300, L503.7505, L100.0100 ####[facility] [address] [place], [address] BUN/CRE 30.3 RATIO High 10-20 [facility] Comment on above: Performed By: #### L 500.4050, L501.2300, L503.7505, L100.0100 ####[facility] [address] [place], [address] Calcium [Mass/Vol] 8.3 mg/dL Normal 7.6-11.0 [facility] Comment on above: Performed By: #### L 500.4050, L501.2300, L503.7505, L100.0100 ####[facility] [address] [place], [address] Chloride [Moles/Vol] 104 mmol/L Normal 98-108 [facility] Comment on above: Performed By: #### L 500.4050, L501.2300, L503.7505, L100.0100 ####[facility] [address] [place], [address] CO2 [Moles/Vol] 22.7 mmol/L Normal 21.0-32.0 [facility] Comment on above: Performed By: #### L 500.4050, L501.2300, L503.7505, L100.0100 ####[facility] [address] [place], [address] Creatinine [Mass/Vol] 2.46 mg/dL High 0.70-1.20 [facility] Comment on above: Performed By: #### L 500.4050, L501.2300, L503.7505, L100.0100 ####[facility] [address] [place], [address] ECRCL 21.95 ml/min Low 50-250 [facility] Comment on above: Performed By: #### L 500.4050, L501.2300, L503.7505, L100.0100 ####[facility] [address] [place], [address] GAP 16 High 5-15 [facility] Comment on above: Performed By: #### L 500.4050, L501.2300, L503.7505, L100.0100 ####[facility] [address] [place], [address] GFR/1.73 sq M.predicted among non-blacks MDRD (S/P/Bld) [Vol rate/Area] 26 mL/min/{1.73_m2} Low >60 [facility] Comment on above: Result Comment: mL/m in/1.73m2 CKD-EPI Creatinine Equation (2020) Performed By: #### L 500.4050, L501.2300, L503.7505, L100.0100 ####[facility] [address] [place], [address] Globulin (S) [Mass/Vol] 2.4 g/dL Normal 2.2-4.2 [facility] Comment on above: Performed By: #### L 500.4050, L501.2300, L503.7505, L100.0100 ####[facility] [address] [place], [address] Glucose [Mass/Vol] 189 mg/dL High 70-99 [facility] Comment on above: Performed By: #### L 500.4050, L501.2300, L503.7505, L100.0100 ####[facility] [address] [place], [address] Potassium [Moles/Vol] 4.0 mmol/L Normal 3.3-5.1 [facility] Comment on above: Performed By: #### L 500.4050, L501.2300, L503.7505, L100.0100 ####[facility] [address] [place], [address] Sodium [Moles/Vol] 143 mmol/L Normal 133-145 [facility] Comment on above: Performed By: #### L 500.4050, L501.2300, L503.7505, L100.0100 ####[facility] [address] [place], [address] T PROT 5.7 g/dL Low 5.9-8.4 [facility] Comment on above: Performed By: #### L 500.4050, L501.2300, L503.7505, L100.0100 ####[facility] [address] [place], [address] Urea nitrogen [Mass/Vol] 75 mg/dL High 4-19 [facility] Comment on above: Performed By: #### L 500.4050, L501.2300, L503.7505, L100.0100 ####[facility] [address] [place], [address] L499.0043on 05-06-2025 Trop T High Sen 141 ng/L Invalid Interpretation Code <=22 [facility] Comment on above: Result Comment: Crit ical Result(s) Called at:0030 by: DASIA MOYA TO CHACHA??Results read back by same. Performed By: #### L 499.0043 ####[facility] [address] [place], [address] L503.7505on 05-06-2025 Natriuretic peptide B (Bld) [Mass/Vol] 30733 pg/mL High <=1800 [facility] Comment on above: Result Comment: Hear t Failure Unlikely: < 300 pg/mLHeart Failure Likely< 50 Years: > 450 pg/mL50-75 Years: > 900 pg/mL>75 Years: > 1800 pg/mL Performed By: #### L 500.4050, L501.2300, L503.7505, L100.0100 ####[facility] [address] [place], [address] Lactic Acidon 05-06-2025 Lactate [Moles/Vol] mmol/L Normal 0.0-2.0 [facility] Comment on above: Performed By: #### L 503.6005 ####[facility] [address] [place], [address] Legionella Antigen Urineon 0 05-06-2025 LEGU Normal [facility] Comment on above: Performed By: #### M 300.4500, M300.4600 ####[facility] [address] [place], [address] M100.019on 05-06-2025 M100.019 Negative Normal [facility] Comment on above: Performed By: #### M 100.019 ####[facility] [address] [place], [address] Measurement, pHOrdered By: Deven Raygoza on 05-06-2025 pH (Unsp spec) 7.51 [pH] High 7.35-7.45 [facility] Natriuretic peptide.B prohor katja N-Terminal [Mass/volume] in Serum or PlasmaOrdered By: Nancy Henson on 05-06-2025 Natriuretic peptide.B prohormone N-Terminal [Mass/Vol] 17837 pg/mL High <1800 [facility] No Panel InformationOrdered By: Carlita Raygoza on 05-06-2025 ART [facility] R Radial [facility] ST [facility] BiPAP [facility] 12 [facility] 8 [facility] 10/08 [facility] Phosphoruson 05-06-2025 Phosphate [Mass/Vol] 5.2 mg/dL High 2.7-4.5 [facility] Comment on above: Performed By: #### L 500.4050, L501.2300, L503.7505, L100.0100 ####[facility] [address] [place], [address] RESPIRATORY PANEL MOLECULARo n 05-06-2025 RP PANEL Normal [facility] Comment on above: Performed By: #### M 100.638 ####[facility] [address] [place], [address] Strep pneumoniae Antig(UR,CS F)on 05-06-2025 STPAG Normal [facility] Comment on above: Performed By: #### M 300.4500, M300.4600 ####[facility] [address] [place], [address] Total carbon dioxide measure mentOrdered By: Carlita Raygoza on 05-06-2025 CO2 [Moles/Vol] 29 mmol/L [facility] 12 Lead EKGon 05-05-2025 12 Lead EKG Normal [facility] Absolute lymphocyte countOrd ered By: Curtis Amor on 05-05-2025 Lymphocytes Auto (Unsp spec) [#/Vol] 1.57 10*3/uL 0.83-4.51 [facility] Activated partial thrombopla stin time (aPTT) in platelet poor plasma by coagulation aOrdered By: Curtis Amor on 05-05-2025 aPTT Coag (PPP) [Time] 29.3 s 24.1-36.2 [facility] Anion gap in Serum or Plasma Ordered By: Curtis Amor on 05-05-2025 Anion gap [Moles/Vol] 16 mmol/L High 5-15 [facility] Automated lymphocyte count a s percentage of total leukocytesOrdered By: Curtis Amor on 05-05-2025 Lymphocytes/100 WBC Auto (Unsp spec) 9.3 % Low 19-41 [facility] BUN/creatinine ratioOrdered By: Curtis Amor on 05-05-2025 Urea nitrogen/Creatinine [Mass ratio] 26.2 mg/mg High 10-20 [facility] Basophil percentageOrdered B y: Curtis Amor on 05-05-2025 Basophils/100 WBC (Bld) 0.5 % 0-1 [facility] Bedside Glucoseon 05-05-2025 FINGERSTICK GLU 124 mg/dL High 74-106 [facility] Comment on above: Result Comment: ADITI GEMENT OF PATIENT CARE PER NURSING PROTOCOL Performed By: #### L 501.080 ####[facility] [address] [place], [address] Bilirubin Test strip Ql (U)O rdered By: Curtis Amor on 05-05-2025 Bilirubin Ql (U) Negative Negative [facility] Bilirubin, totalOrdered By: Curtis Amor on 05-05-2025 Bilirubin [Mass/Vol] 0.49 mg/dL 0.00-1.30 [facility] Blood Gases by CPSon 025 FILI TEST Positive Normal [facility] Comment on above: Performed By: #### L 9000.0800 ####[facility] [address] [place], [address] Base excess Calc (Bld) [Moles/Vol] 4 mmol/L High -2 to +2 [facility] Comment on above: Performed By: #### L 9000.0800 ####[facility] [address] [place], [address] Blood Gas Type ART Normal [facility] Comment on above: Performed By: #### L 0.0800 ####[facility] [address] [place], [address] CO2 [Moles/Vol] 29 mmol/L Normal [facility] Comment on above: Performed By: #### L 9000.0800 ####[facility] [address] [place], [address] Comment 14 8 Normal [facility] Comment on above: Performed By: #### L 0.0800 ####[facility] [address] [place], [address] FI02 35.0 Normal [facility] Comment on above: Performed By: #### L 9000.0800 ####[facility] [address] [place], [address] HCO3 (Bld) [Moles/Vol] 28.0 mmol/L High 22-26 [facility] Comment on above: Performed By: #### L 0.0800 ####[facility] [address] [place], [address] Mode Not entered Normal [facility] Comment on above: Performed By: #### L 0.0800 ####[facility] [address] [place], [address] O2 Delivery Dev BiPAP Normal [facility] Comment on above: Performed By: #### L 0.0800 ####[facility] [address] [place], [address] pCO2 38.8 mmHg Normal 35-45 [facility] Comment on above: Performed By: #### L 9000.0800 ####[facility] [address] [place], [address] PEEP 8 Normal [facility] Comment on above: Performed By: #### L 9000.0800 ####[facility] [address] [place], [address] pH (Bld) 7.47 [pH] High 7.35-7.45 [facility] Comment on above: Performed By: #### L 9000.0800 ####[facility] [address] [place], [address] PIP 14 Normal [facility] Comment on above: Performed By: #### L 9000.0800 ####[facility] [address] [place], [address] PO2 78 mmHG Normal 75-100 [facility] Comment on above: Performed By: #### L 9000.0800 ####[facility] [address] [place], [address] SITE L Radial Normal [facility] Comment on above: Performed By: #### L 9000.0800 ####[facility] [address] [place], [address] SO2 96 Normal 95-99 [facility] Comment on above: Performed By: #### L 9000.0800 ####[facility] [address] [place], [address] CBC W/Diff, Automatedon 07-0 5-2025 Absolute Lymph 1.57 X10 3/uL Normal 0.83-4.51 [facility] Comment on above: Performed By: #### L 300.3900, L100.0100, M200.1000, L500.4050, L503.7505, L300.4310, L503.6005 ####[facility] [address] [place], [address] Absolute Neut 13.7 X10 3/uL High 2.0-7.7 [facility] Comment on above: Performed By: #### L 300.3900, L100.0100, M200.1000, L500.4050, L503.7505, L300.4310, L503.6005 ####[facility] [address] [place], [address] Basophils/100 WBC (Bld) 0.5 % Normal 0-1 [facility] Comment on above: Performed By: #### L 300.3900, L100.0100, M200.1000, L500.4050, L503.7505, L300.4310, L503.6005 ####[facility] [address] [place], [address] Eosinophils/100 WBC (Bld) 0.8 % Normal 0-5 [facility] Comment on above: Performed By: #### L 300.3900, L100.0100, M200.1000, L500.4050, L503.7505, L300.4310, L503.6005 ####[facility] [address] [place], [address] Erythrocyte distribution width (RBC) [Ratio] 14.2 % Normal 11.6-14.6 [facility] Comment on above: Performed By: #### L 300.3900, L100.0100, M200.1000, L500.4050, L503.7505, L300.4310, L503.6005 ####[facility] [address] [place], [address] Hematocrit (Bld) [Volume fraction] 30.3 % Low 40-54 [facility] Comment on above: Performed By: #### L 300.3900, L100.0100, M200.1000, L500.4050, L503.7505, L300.4310, L503.6005 ####[facility] [address] [place], [address] Hemoglobin (Bld) [Mass/Vol] 9.1 g/dL Low 13.0-16.5 [facility] Comment on above: Performed By: #### L 300.3900, L100.0100, M200.1000, L500.4050, L503.7505, L300.4310, L503.6005 ####[facility] [address] [place], [address] IG% 0.400 Normal 0.0-0.9 [facility] Comment on above: Result Comment: IG% - Immature Granulocytes (promyelocytes, myelocytes andmetamyelocytes) > 1% indicates that a LEFT SHIFT is Present. Performed By: #### L 300.3900, L100.0100, M200.1000, L500.4050, L503.7505, L300.4310, L503.6005 ####[facility] [address] [place], [address] Lymphocytes/100 WBC (Bld) 9.3 % Low 19-41 [facility] Comment on above: Performed By: #### L 300.3900, L100.0100, M200.1000, L500.4050, L503.7505, L300.4310, L503.6005 ####[facility] [address] [place], [address] MCH (RBC) [Entitic mass] 28.9 pg Normal 27.0-32.0 [facility] Comment on above: Performed By: #### L 300.3900, L100.0100, M200.1000, L500.4050, L503.7505, L300.4310, L503.6005 ####[facility] [address] [place], [address] MCHC (RBC) [Mass/Vol] 30.0 g/dL Low 32-36 [facility] Comment on above: Performed By: #### L 300.3900, L100.0100, M200.1000, L500.4050, L503.7505, L300.4310, L503.6005 ####[facility] [address] [place], [address] MCV (RBC) [Entitic vol] 96.2 fL High 80-94 [facility] Comment on above: Performed By: #### L 300.3900, L100.0100, M200.1000, L500.4050, L503.7505, L300.4310, L503.6005 ####[facility] [address] [place], [address] Monocytes/100 WBC (Bld) 7.2 % Normal 0-10 [facility] Comment on above: Performed By: #### L 300.3900, L100.0100, M200.1000, L500.4050, L503.7505, L300.4310, L503.6005 ####[facility] [address] [place], [address] Neutrophils/100 WBC (Bld) 81.8 % High 47-70 [facility] Comment on above: Performed By: #### L 300.3900, L100.0100, M200.1000, L500.4050, L503.7505, L300.4310, L503.6005 ####[facility] [address] [place], [address] Nucleated RBC (Bld) [#/Vol] 0 10*3/uL Normal 0-5 [facility] Comment on above: Performed By: #### L 300.3900, L100.0100, M200.1000, L500.4050, L503.7505, L300.4310, L503.6005 ####[facility] [address] [place], [address] Platelet mean volume (Bld) [Entitic vol] 10.8 fL Normal 6.2-12.0 [facility] Comment on above: Performed By: #### L 300.3900, L100.0100, M200.1000, L500.4050, L503.7505, L300.4310, L503.6005 ####[facility] [address] [place], [address] Platelets (Bld) [#/Vol] 252 10*3/uL Normal 150-450 [facility] Comment on above: Performed By: #### L 300.3900, L100.0100, M200.1000, L500.4050, L503.7505, L300.4310, L503.6005 ####[facility] [address] [place], [address] RBC (Bld) [#/Vol] 3.15 10*6/uL Low 4.6-6.2 [facility] Comment on above: Performed By: #### L 300.3900, L100.0100, M200.1000, L500.4050, L503.7505, L300.4310, L503.6005 ####[facility] [address] [place], [address] RDW SD 49.4 fl High 35.1-43.9 [facility] Comment on above: Performed By: #### L 300.3900, L100.0100, M200.1000, L500.4050, L503.7505, L300.4310, L503.6005 ####[facility] [address] [place], [address] WBC (Bld) [#/Vol] 16.8 10*3/uL High 4.4-11.0 [facility] Comment on above: Performed By: #### L 300.3900, L100.0100, M200.1000, L500.4050, L503.7505, L300.4310, L503.6005 ####[facility] [address] [place], [address] Carbon dioxide, total [Moles /volume] in Central venous bloodOrdered By: Curtis Amro on 05-05-2025 CO2 [Moles/Vol] 25.2 mmol/L 21.0-32.0 [facility] Chest 1 View (Portable)on Chest 1 View (Portable) Normal [facility] Chloride assayOrdered By: Zoran Amor on 05-05-2025 Chloride [Moles/Vol] 101 mmol/L 98-108 [facility] Comprehensive Metabolic Prof ilon 05-05-2025 Albumin [Mass/Vol] 3.9 g/dL Normal 3.4-4.8 [facility] Comment on above: Performed By: #### L 300.3900, L100.0100, M200.1000, L500.4050, L503.7505, L300.4310, L503.6005 ####[facility] [address] [place], [address] Albumin/Globulin [Mass ratio] 1.5 {ratio} Normal 0.9-2.4 [facility] Comment on above: Performed By: #### L 300.3900, L100.0100, M200.1000, L500.4050, L503.7505, L300.4310, L503.6005 ####[facility] [address] [place], [address] ALK PHOS 93 U/L Normal 40-129 [facility] Comment on above: Performed By: #### L 300.3900, L100.0100, M200.1000, L500.4050, L503.7505, L300.4310, L503.6005 ####[facility] [address] [place], [address] ALT [Catalytic activity/Vol] 44 U/L Normal <=46 [facility] Comment on above: Performed By: #### L 300.3900, L100.0100, M200.1000, L500.4050, L503.7505, L300.4310, L503.6005 ####[facility] [address] [place], [address] AST [Catalytic activity/Vol] 43 U/L High <=37 [facility] Comment on above: Performed By: #### L 300.3900, L100.0100, M200.1000, L500.4050, L503.7505, L300.4310, L503.6005 ####[facility] [address] [place], [address] Bilirubin [Mass/Vol] 0.49 mg/dL Normal 0.00-1.30 [facility] Comment on above: Performed By: #### L 300.3900, L100.0100, M200.1000, L500.4050, L503.7505, L300.4310, L503.6005 ####[facility] [address] [place], [address] BUN/CRE 26.2 RATIO High 10-20 [facility] Comment on above: Performed By: #### L 300.3900, L100.0100, M200.1000, L500.4050, L503.7505, L300.4310, L503.6005 ####[facility] [address] [place], [address] Calcium [Mass/Vol] 8.5 mg/dL Normal 7.6-11.0 [facility] Comment on above: Performed By: #### L 300.3900, L100.0100, M200.1000, L500.4050, L503.7505, L300.4310, L503.6005 ####[facility] [address] [place], [address] Chloride [Moles/Vol] 101 mmol/L Normal 98-108 [facility] Comment on above: Performed By: #### L 300.3900, L100.0100, M200.1000, L500.4050, L503.7505, L300.4310, L503.6005 ####[facility] [address] [place], [address] CO2 [Moles/Vol] 25.2 mmol/L Normal 21.0-32.0 [facility] Comment on above: Performed By: #### L 300.3900, L100.0100, M200.1000, L500.4050, L503.7505, L300.4310, L503.6005 ####[facility] [address] [place], [address] Creatinine [Mass/Vol] 2.72 mg/dL High 0.70-1.20 [facility] Comment on above: Performed By: #### L 300.3900, L100.0100, M200.1000, L500.4050, L503.7505, L300.4310, L503.6005 ####[facility] [address] [place], [address] ECRCL 19.22 ml/min Low 50-250 [facility] Comment on above: Performed By: #### L 300.3900, L100.0100, M200.1000, L500.4050, L503.7505, L300.4310, L503.6005 ####[facility] [address] [place], [address] GAP 16 High 5-15 [facility] Comment on above: Performed By: #### L 300.3900, L100.0100, M200.1000, L500.4050, L503.7505, L300.4310, L503.6005 ####[facility] [address] [place], [address] GFR/1.73 sq M.predicted among non-blacks MDRD (S/P/Bld) [Vol rate/Area] 23 mL/min/{1.73_m2} Low >60 [facility] Comment on above: Result Comment: mL/m in/1.73m2 CKD-EPI Creatinine Equation (2020) Performed By: #### L 300.3900, L100.0100, M200.1000, L500.4050, L503.7505, L300.4310, L503.6005 ####[facility] [address] [place], [address] Globulin (S) [Mass/Vol] 2.5 g/dL Normal 2.2-4.2 [facility] Comment on above: Performed By: #### L 300.3900, L100.0100, M200.1000, L500.4050, L503.7505, L300.4310, L503.6005 ####[facility] [address] [place], [address] Glucose [Mass/Vol] 242 mg/dL High 70-99 [facility] Comment on above: Performed By: #### L 300.3900, L100.0100, M200.1000, L500.4050, L503.7505, L300.4310, L503.6005 ####[facility] [address] [place], [address] Potassium [Moles/Vol] 4.5 mmol/L Normal 3.3-5.1 [facility] Comment on above: Performed By: #### L 300.3900, L100.0100, M200.1000, L500.4050, L503.7505, L300.4310, L503.6005 ####[facility] [address] [place], [address] Sodium [Moles/Vol] 142 mmol/L Normal 133-145 [facility] Comment on above: Performed By: #### L 300.3900, L100.0100, M200.1000, L500.4050, L503.7505, L300.4310, L503.6005 ####[facility] [address] [place], [address] T PROT 6.4 g/dL Normal 5.9-8.4 [facility] Comment on above: Performed By: #### L 300.3900, L100.0100, M200.1000, L500.4050, L503.7505, L300.4310, L503.6005 ####[facility] [address] [place], [address] Urea nitrogen [Mass/Vol] 71 mg/dL High 4-19 [facility] Comment on above: Performed By: #### L 300.3900, L100.0100, M200.1000, L500.4050, L503.7505, L300.4310, L503.6005 ####[facility] [address] [place], [address] Emergency Department Summary on 05-05-2025 Emergency Department Summary Normal [facility] Eosinophil percentageOrdered By: Curtis Amro on 05-05-2025 Eosinophils/100 WBC (Bld) 0.8 % 0-5 [facility] Erythrocyte distribution wid th ratioOrdered By: Curtis Amor on 05-05-2025 Erythrocyte distribution width (RBC) [Ratio] 14.2 % 11.6-14.6 [facility] Erythrocyte distribution wid th standard deviationOrdered By: Curtis Amor on 05-05-2025 Erythrocyte distribution width (RBC) [Ratio] 49.4 fl High 35.1-43.9 [facility] Glomerular filtration rate ( GFR) estimation/1.73 sq m using serum, plasma, or whole bOrdered By: Curtis Amor on 05-05-2025 GFR/1.73 sq M.predicted among non-blacks MDRD (S/P/Bld) [Vol rate/Area] 23 mL/min/{1.73_m2} Low >60 [facility] H AND P Exam - Hospitaliston 05-05-2025 H&P Exam - Hospitalist Normal [facility] Hematocrit Auto (Bld) [Volum e fraction]Ordered By: Curtis Amor on 05-05-2025 Hematocrit (Bld) [Volume fraction] 30.3 % Low 40-54 [facility] Hemoglobin measurementOrdere d By: Curtis Amor on 05-05-2025 Hemoglobin (Bld) [Mass/Vol] 9.1 g/dL Low 13.0-16.5 [facility] Immature granulocytes/100 WB C Auto (Bld)Ordered By: Curtis Amor on 05-05-2025 Immature granulocytes/100 WBC (Bld) 0.400 % 0.0-0.9 [facility] Ketones Test strip Ql (U)Ord ered By: Curtis Amor on 05-05-2025 Ketones Ql (U) Negative Negative [facility] L499.0042on 05-05-2025 Trop T High Sen 113 ng/L Invalid Interpretation Code <=22 [facility] Comment on above: Result Comment: Crit ical Result(s) Called at: 2243 by: JEANNIE BURNHAM??Results read back by same. Performed By: #### L 499.0042 ####[facility] [address] [place], [place], [address] L501.4021on 05-05-2025 Trop T High Sen 115 ng/L Invalid Interpretation Code <=22 [facility] Comment on above: Result Comment: Crit ical Result(s) Called at: 2043 by:??JEANNIE ALBERT Results read back by same. Performed By: #### L 091.4025 ####[facility] [address] [place], [address] L503.7505on 05-05-2025 Natriuretic peptide B (Bld) [Mass/Vol] 66814 pg/mL High <=1800 [facility] Comment on above: Result Comment: Hear t Failure Unlikely: < 300 pg/mLHeart Failure Likely< 50 Years: > 450 pg/mL50-75 Years: > 900 pg/mL>75 Years: > 1800 pg/mL Performed By: #### L 300.3900, L100.0100, M200.1000, L500.4050, L503.7505, L300.4310, L503.6005 ####[facility] [address] [place], [address] Lactic Acidon 05-05-2025 Lactate [Moles/Vol] 1.2 mmol/L Normal 0.0-2.0 [facility] Comment on above: Order Comment: Y Performed By: #### L 501.5200, L503.6005 ####[facility] [address] [place], [place], [address] Lactate [Moles/Vol] 2.8 mmol/L Invalid Interpretation Code 0.0-2.0 [facility] Comment on above: Order Comment: Y Result Comment: Crit ical Result(s) Called at: 2043 by:??JEANNIE ALBERT Results read back by same. Performed By: #### L 300.3900, L100.0100, M200.1000, L500.4050, L503.7505, L300.4310, L503.6005 ####[facility] [address] [place], [place], [address] MCV (mean corpuscular volume ) determinationOrdered By: Curtis Amor on 05-05-2025 MCV (RBC) [Entitic vol] 96.2 fL High 80-94 [facility] Magnesiumon 05-05-2025 Magnesium [Mass/Vol] 2.3 mg/dL High 1.5-2.2 [facility] Comment on above: Performed By: #### L 501.5200, L503.6005 ####[facility] [address] [place], [address] Mean corpuscular hemoglobin (MCH) determinationOrdered By: Curtis Amor on 05-05-2025 MCH (RBC) [Entitic mass] 28.9 pg 27.0-32.0 [facility] Monocyte percentageOrdered B y: Curtis Amor on 05-05-2025 Monocytes/100 WBC (Bld) 7.2 % 0-10 [facility] Mucus LM Ql (Urine sed)Order ed By: Curits Amor on 05-05-2025 Mucus Ql (Urine sed) 0 SEEN /hpf [facility] Natriuretic peptide.B prohor katja N-Terminal [Mass/volume] in Serum or PlasmaOrdered By: Curtis Amor on 05-05-2025 Natriuretic peptide.B prohormone N-Terminal [Mass/Vol] 67912 pg/mL High <1800 [facility] Neutrophil percentageOrdered By: Curtis Amor on 05-05-2025 Neutrophils/100 WBC (Bld) 81.8 % High 47-70 [facility] Nitrite Test strip Ql (U)Ord ered By: Curtis Amor on 05-05-2025 Nitrite Ql (U) Negative Negative [facility] No Panel InformationOrdered By: Nancy Henson on 05-05-2025 14 [facility] No Panel InformationOrdered By: Curtis Amor on 05-05-2025 43 U/L High <38 [facility] Partial Thromboplast Timeon 05-05-2025 aPTT Coag (Bld) [Time] 29.3 s Normal 24.1-36.2 [facility] Comment on above: Performed By: #### L 300.3900, L100.0100, M200.1000, L500.4050, L503.7505, L300.4310, L503.6005 ####[facility] [address] [place], [address] Platelet countOrdered By: Zoran Amor on 05-05-2025 Platelets (Bld) [#/Vol] 252 10*3/uL 150-450 [facility] Potassium measurement (mass/ volume)Ordered By: Curtis Amor on 05-05-2025 Potassium (Unsp spec) [Mass/Vol] 4.5 mmol/L 3.3-5.1 [facility] Protein Test strip Ql (U)Ord ered By: Curtis Amor on 05-05-2025 Protein Ql (U) 30 mg/dl High Negative [facility] Prothrombin Time w/INRon INR Coag (PPP) [Relative time] 1.0 {INR} Normal [facility] Comment on above: Performed By: #### L 300.3900, L100.0100, M200.1000, L500.4050, L503.7505, L300.4310, L503.6005 ####[facility] [address] [place], [place], [address] PT Coag (PPP) [Time] 13.1 s Normal 11.7-14.9 [facility] Comment on above: Performed By: #### L 300.3900, L100.0100, M200.1000, L500.4050, L503.7505, L300.4310, L503.6005 ####[facility] [address] [place], [place], [id number] Prothrombin timeOrdered By: Curtis Amor on 05-05-2025 PT Coag (PPP) [Time] 13.1 s 11.7-14.9 [facility] RBC Auto (Bld) [#/Vol]Ordere d By: Curtis Amor on 05-05-2025 RBC (Bld) [#/Vol] 3.15 10*6/uL Low 4.6-6.2 [facility] Respiratory pathogens detect ion panel by molecular detection methodOrdered By: Nancy Henson on 05-05-2025 Respiratory pathogens DNA and RNA panel ALICE+probe (Resp) [facility] [id number] By: Nancy Henson on 05-05-2025 SARS-CoV-2 (COVID-19) RNA ALICE+probe Ql (Unsp spec) [facility] Serum creatinine measurement (mass/volume)Ordered By: Curtis Amor on 05-05-2025 Creatinine [Mass/Vol] 2.72 mg/dL High 0.70-1.20 [facility] Serum globulin measurementOr dered By: Curtis Amor on 05-05-2025 Globulin (S) [Mass/Vol] 2.5 g/dL 2.2-4.2 [facility] Serum glucose measurement (m ass/volume)Ordered By: Curtis Amor on 05-05-2025 Glucose [Mass/Vol] 242 mg/dL High 70-99 [facility] Serum or plasma alanine clayton otransferase (ALT) measurementOrdered By: Curtis Amor on 05-05-2025 ALT [Catalytic activity/Vol] 44 U/L <47 [facility] Serum or plasma albumin nikkie urement (mass/volume)Ordered By: Curtis Amor on 05-05-2025 Albumin [Mass/Vol] 3.9 g/dL 3.4-4.8 [facility] Serum or plasma albumin/glob ulin mass ratioOrdered By: Curtis Amor on 05-05-2025 Albumin/Globulin [Mass ratio] 1.5 {ratio} 0.9-2.4 [facility] Serum or plasma alkaline dwight sphatase measurementOrdered By: Crutis Amor on 05-05-2025 ALP [Catalytic activity/Vol] 93 U/L 40-129 [facility] Serum or plasma calcium nikkie urement (mass/volume)Ordered By: Curtis Amor on 05-05-2025 Calcium [Mass/Vol] 8.5 mg/dL 7.6-11.0 [facility] Serum or plasma urea nitroge n measurement (mass/volume)Ordered By: Curtis Amor on 05-05-2025 Urea nitrogen [Mass/Vol] 71 mg/dL High 4-19 [facility] Sodium levelOrdered By: Amina Amor on 05-05-2025 Sodium [Moles/Vol] 142 mmol/L 133-145 [facility] Squamous epithelial cells de tection in urine sediment by light microscopyOrdered By: Curtis Amor on 05-05-2025 Epithelial cells.squamous LM Ql (Urine sed) 0 SEEN /hpf 0-5 [facility] Total proteinOrdered By: Shaun Amor on 05-05-2025 Protein [Mass/Vol] 6.4 g/dL 5.9-8.4 [facility] Troponin T.cardiac [Mass/vol ume] in Serum or Plasma by High sensitivity methodOrdered By: Curtis Amor on 05-05-2025 Troponin T.cardiac High sensitivity method [Mass/Vol] 141 ng/L High <22 [facility] Troponin T.cardiac High sensitivity method [Mass/Vol] 113 ng/L High <22 [facility] Troponin T.cardiac High sensitivity method [Mass/Vol] 115 ng/L High <22 [facility] Urinalysis, Completeon 05-05 BACTERIA RARE Normal None Seen [facility] Comment on above: Order Comment: [facility] CTOR TO SPECIFY Performed By: #### M 100.2200, L400.0001 ####[facility] [address] [place], [address] WBC 0-5 SEEN Normal 0-5 [facility] Comment on above: Order Comment: [facility] CTOR TO SPECIFY Performed By: #### M 100.2200, L400.0001 ####[facility] [address] [place], [address] EPI,SQUAMOUS 0 SEEN Normal 0-5 [facility] Comment on above: Order Comment: [facility] TO SPECIFY Performed By: #### M 100.2200, L400.0001 ####[facility] [address] [place], [address] Mucus Ql (Urine sed) 0 SEEN Normal [facility] Comment on above: Order Comment: [facility] CTOR TO SPECIFY Performed By: #### M 100.2200, L400.0001 ####[facility] [address] [place], [address] RBC 0 SEEN Normal 0-5 [facility] Comment on above: Order Comment: [facility] CTOR TO SPECIFY Performed By: #### M 100.2200, L400.0001 ####[facility] [address] [place], [address] Urine Legionella pneumophila antigen detectionOrdered By: Nancy Henson on 05-05-2025 L. pneumophila Ag Ql (U) [facility] Urine clarityOrdered By: Shaun Amor on 05-05-2025 Clarity (U) Clear Clear [facility] Urine color determinationOrd ered By: Curtis Amor on 05-05-2025 Color (U) Yellow Yellow [facility] Urine cultureOrdered By: Shaun Amor on 05-05-2025 Bacteria identified Cx Nom (U) Positive Abnormal [facility] Urine glucose detectionOrder ed By: Curtis Amor on 05-05-2025 Glucose Ql (U) Normal mg/dl Normal [facility] Urine leukocyte esterase det ection by dipstickOrdered By: Curtis Amor on 05-05-2025 Leukocyte esterase Test strip Ql (U) 25 /ul High Negative [facility] Urine pHOrdered By: Curtis matt on 05-05-2025 pH (U) 6.0 [pH] 5.0 - 8.0 [facility] Urine sediment bacteria coun t by microscopy (number/high power field)Ordered By: Curtis Amor on 05-05-2025 Bacteria LM.HPF (Urine sed) [#/Area] RARE /hpf None Seen [facility] Urine specific gravity measu rementOrdered By: Curtis Amor on 05-05-2025 Specific gravity (U) [Rel density] 1.015 1.002-1.030 [facility] Urine urobilinogen measureme ntOrdered By: Curtis Amor on 05-05-2025 Urobilinogen Ql (U) Normal mg/dl Normal [facility] White blood cell (WBC) count Ordered By: Curtis Amor on 05-05-2025 WBC (Bld) [#/Vol] 16.8 10*3/uL High 4.4-11.0 [facility] White blood cell countOrdere d By: Curtis Amor on 05-05-2025 White blood cell count 0-5 SEEN /hpf 0-5 [facility] BASIC METABOLIC PANEL WITH A NION GAPon 04-28-2025 Calcium [Mass/Vol] 8.2 mg/dL Low 8.6-10.3 [facility] Comment on above: Performed By: #### [id number] #### [facility] of [address], [address] [place] [address] [employer]: Jadon Velez MD Chloride [Moles/Vol] 99 mmol/L Normal 98-110 [facility] Comment on above: Performed By: #### [id number] #### [facility] of [address], [address] [place] [address] [employer]: Jadon Velez MD CO2 [Moles/Vol] 30 mmol/L Normal 20-32 [facility] Comment on above: Performed By: #### [id number] #### [facility] of [address], [address] [place] [address] [employer]: Jadon Velez MD Creatinine [Mass/Vol] 2.37 mg/dL High 0.70-1.[address] [facility] Comment on above: Performed By: #### [id number] #### [facility] of [address], [address] [place] [address] [employer]amic Coater Machine: Jadon Velez MD ELECTROLYTE BALANCE 10 mmol/L (calc) Normal 7-17 [facility] Comment on above: Performed By: #### 9 2498 #### [facility] of [place] [address] [employer] Machine: Jadon Velez MD GFR/1.73 sq M.predicted among non-blacks MDRD (S/P/Bld) [Vol rate/Area] 27 mL/min/{1.73_m2} Low > OR = 60 [facility] Comment on above: Performed By: #### 9 2498 #### [facility] of [address], [address] [place] [address] Ceramic Coater Machine: Jadon Velez MD Glucose [Mass/Vol] 40 mg/dL Low 65-99 [facility] Comment on above: Result Comment: Veri fied by repeat analysis. Fasting reference interval Performed By: #### 9 2498 #### [facility] of [place] [address] [employer] Co[employer] Machine: Jadon Velez MD Potassium [Moles/Vol] 4.0 mmol/L Normal 3.5-5.3 [facility] Comment on above: Performed By: #### 9 2498 #### [facility] of [address], [address] [place] [address] Ceramic Coater Machine: Jadon Velez MD Sodium [Moles/Vol] 139 mmol/L Normal 135-146 [facility] Comment on above: Performed By: #### 9 2498 #### [facility] [address], [address] [place] [address] Ceramic Coater Machine: Jadon Velez MD Urea nitrogen [Mass/Vol] 82 mg/dL High - [facility] Comment on above: Performed By: #### 9 2498 #### [facility] [address], [address] [place] [address] Ceramic Coater Machine: Jadon Velez MD Urea nitrogen/Creatinine [Mass ratio] 35 mg/mg High - [facility] Comment on above: Performed By: #### 9 2498 #### [facility] [place] [address] Ceramic Coater Machine: Jadon Velez MD Basic Metabolic Profile (BMP )on 04-23-2025 BUN Normal -19 [facility] Comment on above: Result Comment: Canc elled via OM: Order cancelled - Patient discharged Performed By: #### L 500.2500, L100.0100 ####[facility] [address] [place], [address] BUN/CRE Normal 10-20 [facility] Comment on above: Result Comment: Canc elled via OM: Order cancelled - Patient discharged Performed By: #### L 500.2500, L100.0100 ####[facility] [address] [place], [address] Calcium Normal 7.6-11.0 [facility] Comment on above: Result Comment: Canc elled via OM: Order cancelled - Patient discharged Performed By: #### L 500.2500, L100.0100 ####[facility] [address] [place], [address] CL Normal 98-108 [facility] Comment on above: Result Comment: Canc elled via OM: Order cancelled - Patient discharged Performed By: #### L 500.2500, L100.0100 ####[facility] [address] [place], [address] CO2 Normal 21.0-32.0 [facility] Comment on above: Result Comment: Canc elled via OM: Order cancelled - Patient discharged Performed By: #### L 500.2500, L100.0100 ####[facility] [address] [place], [address] CREAT,SERUM Normal 0.70-1.20 [facility] Comment on above: Result Comment: Canc elled via OM: Order cancelled - Patient discharged Performed By: #### L 500.2500, L100.0100 ####[facility] [address] [place], [address] eGFR Normal >60 [facility] Comment on above: Result Comment: Canc elled via OM: Order cancelled - Patient discharged Performed By: #### L 500.2500, L100.0100 ####[facility] [address] [place], [address] GAP Normal 5-15 [facility] Comment on above: Result Comment: Canc elled via OM: Order cancelled - Patient discharged Performed By: #### L 500.2500, L100.0100 ####[facility] [address] [place], [address] GLU Normal 70-99 [facility] Comment on above: Result Comment: Canc elled via OM: Order cancelled - Patient discharged Performed By: #### L 500.2500, L100.0100 ####[facility] [address] [place], [address] Potassium Normal 3.3-5.1 [facility] Comment on above: Result Comment: Canc elled via OM: Order cancelled - Patient discharged Performed By: #### L 500.2500, L100.0100 ####[facility] [address] [place], [address] Basic Metabolic Profile (BMP) Normal 133-145 [facility] Comment on above: Result Comment: Canc elled via OM: Order cancelled - Patient discharged Performed By: #### L 500.2500, L100.0100 ####[facility] [address] [place], [address] CBC W/Diff, Automatedon 06-2 Absolute Neut Normal 2.0-7.7 [facility] Comment on above: Result Comment: Canc elled via OM: Order cancelled - Patient discharged Performed By: #### L 500.2500, L100.0100 ####[facility] [address] [place], [address] HCT Normal 40-54 [facility] Comment on above: Result Comment: Canc elled via OM: Order cancelled - Patient discharged Performed By: #### L 500.2500, L100.0100 ####[facility] [address] [place], [address] HGB Normal 13.0-16.5 [facility] Comment on above: Result Comment: Canc elled via OM: Order cancelled - Patient discharged Performed By: #### L 500.2500, L100.0100 ####[facility] [address] [place], [address] MCH Normal 27.0-32.0 [facility] Comment on above: Result Comment: Canc elled via OM: Order cancelled - Patient discharged Performed By: #### L 500.2500, L100.0100 ####[facility] [address] [place], [address] MCHC Normal 32-36 [facility] Comment on above: Result Comment: Canc elled via OM: Order cancelled - Patient discharged Performed By: #### L 500.2500, L100.0100 ####[facility] [address] [place], [address] MCV Normal 80-94 [facility] Comment on above: Result Comment: Canc elled via OM: Order cancelled - Patient discharged Performed By: #### L 500.2500, L100.0100 ####[facility] [address] [place], [address] NEUT% Normal 47-70 [facility] Comment on above: Result Comment: Canc elled via OM: Order cancelled - Patient discharged Performed By: #### L 500.2500, L100.0100 ####[facility] [address] [place], [address] PLT Normal 150-450 [facility] Comment on above: Result Comment: Canc elled via OM: Order cancelled - Patient discharged Performed By: #### L 500.2500, L100.0100 ####[facility] [address] [place], [address] RBC Normal 4.6-6.2 [facility] Comment on above: Result Comment: Canc elled via OM: Order cancelled - Patient discharged Performed By: #### L 500.2500, L100.0100 ####[facility] [address] [place], [address] RDW CV Normal 11.6-14.6 [facility] Comment on above: Result Comment: Canc elled via OM: Order cancelled - Patient discharged Performed By: #### L 500.2500, L100.0100 ####[facility] [address] [place], [address] RDW SD Normal 35.1-43.9 [facility] Comment on above: Result Comment: Canc elled via OM: Order cancelled - Patient discharged Performed By: #### L 500.2500, L100.0100 ####[facility] [address] [place], [address] WBC Normal 4.4-11.0 [facility] Comment on above: Result Comment: Canc elled via OM: Order cancelled - Patient discharged Performed By: #### L 500.2500, L100.0100 ####[facility] [address] [place], [address] Anion gap in Serum or Plasma Ordered By: Bipin Gonzalez on 04-22-2025 Anion gap [Moles/Vol] 14 mmol/L - [facility] BUN/creatinine ratioOrdered By: Bipin Gonzalez on 04-22-2025 Urea nitrogen/Creatinine [Mass ratio] 30.0 mg/mg High 10- [facility] Basic Metabolic Profile (BMP )on 04-22-2025 BUN/CRE 30.0 RATIO High - [facility] Comment on above: Performed By: #### L 500.2500, L501.5200 ####[facility] [address] [place], [address] Calcium [Mass/Vol] 8.6 mg/dL Normal 7.6-11.0 [facility] Comment on above: Performed By: #### L 500.2500, L501.5200 ####[facility] [address] [place], [address] Chloride [Moles/Vol] 100 mmol/L Normal 98-108 [facility] Comment on above: Performed By: #### L 500.2500, L501.5200 ####[facility] [address] [place], [address] CO2 [Moles/Vol] 23.0 mmol/L Normal 21.0-32.0 [facility] Comment on above: Performed By: #### L 500.2500, L501.5200 ####[facility] [address] [place], [address] Creatinine [Mass/Vol] 2.97 mg/dL High 0.70-1.20 [facility] Comment on above: Performed By: #### L 500.2500, L501.5200 ####[facility] [address] [place], [address] ECRCL 17.60 ml/min Low 50-250 [facility] Comment on above: Performed By: #### L 500.2500, L501.5200 ####[facility] [address] [place], [address] GAP 14 Normal 5-15 [facility] Comment on above: Performed By: #### L 500.2500, L501.5200 ####[facility] [address] [place], [address] GFR/1.73 sq M.predicted among non-blacks MDRD (S/P/Bld) [Vol rate/Area] 20 mL/min/{1.73_m2} Low >60 [facility] Comment on above: Result Comment: mL/m in/1.73m2 CKD-EPI Creatinine Equation (2020) Performed By: #### L 500.2500, L501.5200 ####[facility] [address] [place], [address] Glucose [Mass/Vol] 240 mg/dL High 70-99 [facility] Comment on above: Performed By: #### L 500.2500, L501.5200 ####[facility] [address] [place], [address] Potassium [Moles/Vol] 4.2 mmol/L Normal 3.3-5.1 [facility] Comment on above: Performed By: #### L 500.2500, L501.5200 ####[facility] [address] [place], [address] Sodium [Moles/Vol] 137 mmol/L Normal 133-145 [facility] Comment on above: Performed By: #### L 500.2500, L501.5200 ####[facility] [address] [place], [address] Urea nitrogen [Mass/Vol] 89 mg/dL High 4-19 [facility] Comment on above: Performed By: #### L 500.2500, L501.5200 ####[facility] [address] [place], [address] Bedside Glucoseon 04-22-2025 FINGERSTICK GLU 246 mg/dL High 74-106 [facility] Comment on above: Result Comment: ADITI GEMENT OF PATIENT CARE PER NURSING PROTOCOL Performed By: #### L 501.080 ####[facility] [address] [place], [address] FINGERSTICK GLU 202 mg/dL High 74-106 [facility] Comment on above: Result Comment: ADITI GEMENT OF PATIENT CARE PER NURSING PROTOCOL Performed By: #### L 501.080 ####[facility] [address] [place], [address] Carbon dioxide, total [Moles /volume] in Central venous bloodOrdered By: Bipin Gonzalez on 04-22-2025 CO2 [Moles/Vol] 23.0 mmol/L 21.0-32.0 [facility] Chloride assayOrdered By: Song Gonzalez on 04-22-2025 Chloride [Moles/Vol] 100 mmol/L 98-108 [facility] Glomerular filtration rate ( GFR) estimation/1.73 sq m using serum, plasma, or whole bOrdered By: Bipin Gonzalez on 04-22-2025 GFR/1.73 sq M.predicted among non-blacks MDRD (S/P/Bld) [Vol rate/Area] 20 mL/min/{1.73_m2} Low >60 [facility] Glucose measurement at bedsi deOrdered By: Malika Fonseca on 04-22-2025 Glucose [Mass/Vol] 246 mg/dL High 74-106 [facility] Glucose [Mass/Vol] 202 mg/dL High 74-106 [facility] Magnesiumon 04-22-2025 Magnesium [Mass/Vol] 2.7 mg/dL High 1.5-2.2 [facility] Comment on above: Performed By: #### L 500.2500, L501.5200 ####[facility] [address] [place], [address] Magnesium measurement (mass/ volume)Ordered By: Bipin Gonzalez on 04-22-2025 Magnesium (Unsp spec) [Mass/Vol] 2.7 mg/dL High 1.5-2.2 [facility] Potassium measurement (mass/ volume)Ordered By: Bipin Gonzalez on 04-22-2025 Potassium (Unsp spec) [Mass/Vol] 4.2 mmol/L 3.3-5.1 [facility] Serum creatinine measurement (mass/volume)Ordered By: Bipin Gonzalez on 04-22-2025 Creatinine [Mass/Vol] 2.97 mg/dL High 0.70-1.20 [facility] Serum glucose measurement (m ass/volume)Ordered By: Bipin Gonzalez on 04-22-2025 Glucose [Mass/Vol] 240 mg/dL High 70-99 [facility] Serum or plasma calcium nikkie urement (mass/volume)Ordered By: Bipin Gonzalez on 04-22-2025 Calcium [Mass/Vol] 8.6 mg/dL 7.6-11.0 [facility] Serum or plasma urea nitroge n measurement (mass/volume)Ordered By: Bipin Gonzalez on 04-22-2025 Urea nitrogen [Mass/Vol] 89 mg/dL High 4-19 [facility] Sodium levelOrdered By: Viet Gonzalez on 04-22-2025 Sodium [Moles/Vol] 137 mmol/L 133-145 [facility] Basic Metabolic Profile (BMP )on 04-21-2025 BUN/CRE 27.1 RATIO High 10-20 [facility] Comment on above: Performed By: #### L 500.2500 ####[facility] [address] [place], [address] Calcium [Mass/Vol] 8.9 mg/dL Normal 7.6-11.0 [facility] Comment on above: Performed By: #### L 500.2500 ####[facility] [address] [place], [address] Chloride [Moles/Vol] 102 mmol/L Normal 98-108 [facility] Comment on above: Performed By: #### L 500.2500 ####[facility] [address] [place], [address] CO2 [Moles/Vol] 22.4 mmol/L Normal 21.0-32.0 [facility] Comment on above: Performed By: #### L 500.2500 ####[facility] [address] [place], [address] Creatinine [Mass/Vol] 2.94 mg/dL High 0.70-1.20 [facility] Comment on above: Performed By: #### L 500.2500 ####[facility] [address] [place], [address] ECRCL 17.78 ml/min Low 50-250 [facility] Comment on above: Performed By: #### L 500.2500 ####[facility] [address] [place], [address] GAP 14 Normal 5-15 [facility] Comment on above: Performed By: #### L 500.2500 ####[facility] [address] [place], [address] GFR/1.73 sq M.predicted among non-blacks MDRD (S/P/Bld) [Vol rate/Area] 21 mL/min/{1.73_m2} Low >60 [facility] Comment on above: Result Comment: mL/m in/1.73m2 CKD-EPI Creatinine Equation (2020) Performed By: #### L 500.2500 ####[facility] [address] [place], [address] Glucose [Mass/Vol] 136 mg/dL High 70-99 [facility] Comment on above: Performed By: #### L 500.2500 ####[facility] [address] [place], [address] Potassium [Moles/Vol] 4.5 mmol/L Normal 3.3-5.1 [facility] Comment on above: Performed By: #### L 500.2500 ####[facility] [address] [place], [address] Sodium [Moles/Vol] 138 mmol/L Normal 133-145 [facility] Comment on above: Performed By: #### L 500.2500 ####[facility] [address] [place], [address] Urea nitrogen [Mass/Vol] 80 mg/dL High 4-19 [facility] Comment on above: Performed By: #### L 500.2500 ####[facility] [address] [place], [address] Bedside Glucoseon 04-21-2025 FINGERSTICK GLU 341 mg/dL High 74-106 [facility] Comment on above: Result Comment: ADITI GEMENT OF PATIENT CARE PER NURSING PROTOCOL Performed By: #### L 501.080 ####[facility] [address] [place], [address] FINGERSTICK GLU 279 mg/dL High 74-106 [facility] Comment on above: Result Comment: ADITI GEMENT OF PATIENT CARE PER NURSING PROTOCOL Performed By: #### L 501.080 ####[facility] [address] [place], [address] FINGERSTICK GLU 201 mg/dL High 74-106 [facility] Comment on above: Result Comment: ADITI GEMENT OF PATIENT CARE PER NURSING PROTOCOL Performed By: #### L 501.080 ####[facility] [address] [place], [address] FINGERSTICK GLU 150 mg/dL High -106 [facility] Comment on above: Result Comment: ADITI GEMENT OF PATIENT CARE PER NURSING PROTOCOL Performed By: #### L 501.080 ####[facility] [address] [place], [address] Stool Occult Blood iFOBon STOB Positive Normal [facility] Comment on above: Performed By: #### M 100.7900 ####[facility] [address] [place], [address] Stool gastrointestinal hemog lobin detection by immunologic methodOrdered By: Nancy Henson on 04-21-2025 Lower GI hemoglobin IA Ql (Stl) Positive Abnormal [facility] Absolute lymphocyte countOrd ered By: Nancy Henson on 04-20-2025 Lymphocytes Auto (Unsp spec) [#/Vol] 0.52 10*3/uL Low 0.83-4.51 [facility] Automated lymphocyte count a s percentage of total leukocytesOrdered By: Nancy Henson on 04-20-2025 Lymphocytes/100 WBC Auto (Unsp spec) 3.5 % Low 19-41 [facility] Basophil percentageOrdered B y: Nancy Henson on 04-20-2025 Basophils/100 WBC (Bld) 0.1 % 0-1 [facility] Bedside Glucoseon 04-20-2025 FINGERSTICK GLU 241 mg/dL High 74-106 [facility] Comment on above: Result Comment: ADITI GEMENT OF PATIENT CARE PER NURSING PROTOCOL Performed By: #### L 501.080 ####[facility] [address] [place], [address] FINGERSTICK GLU 337 mg/dL High 74-106 [facility] Comment on above: Result Comment: ADITI GEMENT OF PATIENT CARE PER NURSING PROTOCOL Performed By: #### L 501.080 ####[facility] [address] [place], [address] FINGERSTICK GLU 391 mg/dL High 74-106 [facility] Comment on above: Result Comment: ADITI GEMENT OF PATIENT CARE PER NURSING PROTOCOL Performed By: #### L 501.080 ####[facility] [address] [place], [address] FINGERSTICK GLU 362 mg/dL High 74-106 [facility] Comment on above: Result Comment: ADITI GEMENT OF PATIENT CARE PER NURSING PROTOCOL Performed By: #### L 501.080 ####[facility] [address] [place], [address] Bilirubin, totalOrdered By: Nancy Henson on 04-20-2025 Bilirubin [Mass/Vol] 0.35 mg/dL 0.00-1.30 [facility] CBC W/Diff, Automatedon 04-02 0-2024 Absolute Lymph 0.52 X10 3/uL Low 0.83-4.51 [facility] Comment on above: Performed By: #### L 100.0100, L500.4050 ####[facility] [address] [place], [address] Absolute Neut 14.0 X10 3/uL High 2.0-7.7 [facility] Comment on above: Performed By: #### L 100.0100, L500.4050 ####[facility] [address] [place], [address] Basophils/100 WBC (Bld) 0.1 % Normal 0-1 [facility] Comment on above: Performed By: #### L 100.0100, L500.4050 ####[facility] [address] [place], [address] Eosinophils/100 WBC (Bld) 0.0 % Normal 0-5 [facility] Comment on above: Performed By: #### L 100.0100, L500.4050 ####[facility] [address] [place], [address] Erythrocyte distribution width (RBC) [Ratio] 13.6 % Normal 11.6-14.6 [facility] Comment on above: Performed By: #### L 100.0100, L500.4050 ####[facility] [address] [place], [address] Hematocrit (Bld) [Volume fraction] 24.6 % Low 40-54 [facility] Comment on above: Performed By: #### L 100.0100, L500.4050 ####[facility] [address] [place], [address] Hemoglobin (Bld) [Mass/Vol] 7.9 g/dL Low 13.0-16.5 [facility] Comment on above: Performed By: #### L 100.0100, L500.4050 ####[facility] [address] [place], [address] IG% 0.800 Normal 0.0-0.9 [facility] Comment on above: Result Comment: IG% - Immature Granulocytes (promyelocytes, myelocytes andmetamyelocytes) > 1% indicates that a LEFT SHIFT is Present. Performed By: #### L 100.0100, L500.4050 ####[facility] [address] [place], [address] Lymphocytes/100 WBC (Bld) 3.5 % Low 19-41 [facility] Comment on above: Performed By: #### L 100.0100, L500.4050 ####[facility] [address] [place], [address] MCH (RBC) [Entitic mass] 29.9 pg Normal 27.0-32.0 [facility] Comment on above: Performed By: #### L 100.0100, L500.4050 ####[facility] [address] [place], [address] MCHC (RBC) [Mass/Vol] 32.1 g/dL Normal 32-36 [facility] Comment on above: Performed By: #### L 100.0100, L500.4050 ####[facility] [address] [place], [address] MCV (RBC) [Entitic vol] 93.2 fL Normal 80-94 [facility] Comment on above: Performed By: #### L 100.0100, L500.4050 ####[facility] [address] [place], [address] Monocytes/100 WBC (Bld) 1.7 % Normal 0-10 [facility] Comment on above: Performed By: #### L 100.0100, L500.4050 ####[facility] [address] [place], [address] Neutrophils/100 WBC (Bld) 93.9 % High 47-70 [facility] Comment on above: Performed By: #### L 100.0100, L500.4050 ####[facility] [address] [place], [address] Nucleated RBC (Bld) [#/Vol] 0 10*3/uL Normal 0-5 [facility] Comment on above: Performed By: #### L 100.0100, L500.4050 ####[facility] [address] [place], [address] Platelet mean volume (Bld) [Entitic vol] 11.6 fL Normal 6.2-12.0 [facility] Comment on above: Performed By: #### L 100.0100, L500.4050 ####[facility] [address] [place], [address] Platelets (Bld) [#/Vol] 216 10*3/uL Normal 150-450 [facility] Comment on above: Performed By: #### L 100.0100, L500.4050 ####[facility] [address] [place], [address] RBC (Bld) [#/Vol] 2.64 10*6/uL Low 4.6-6.2 [facility] Comment on above: Performed By: #### L 100.0100, L500.4050 ####[facility] [address] [place], [address] RDW SD 46.0 fl High 35.1-43.9 [facility] Comment on above: Performed By: #### L 100.0100, L500.4050 ####[facility] [address] [place], [address] WBC (Bld) [#/Vol] 14.9 10*3/uL High 4.4-11.0 [facility] Comment on above: Performed By: #### L 100.0100, L500.4050 ####[facility] [address] [place], [address] Comprehensive Metabolic Prof [facility] 04-20-2025 Albumin [Mass/Vol] 3.7 g/dL Normal 3.4-4.8 [facility] Comment on above: Performed By: #### L 100.0100, L500.4050 ####[facility] [address] [place], [address] Albumin/Globulin [Mass ratio] 1.5 {ratio} Normal 0.9-2.4 [facility] Comment on above: Performed By: #### L 100.0100, L500.4050 ####[facility] [address] [place], [address] ALK PHOS 78 U/L Normal 40-129 [facility] Comment on above: Performed By: #### L 100.0100, L500.4050 ####[facility] [address] [place], [address] ALT [Catalytic activity/Vol] 27 U/L Normal <=46 [facility] Comment on above: Performed By: #### L 100.0100, L500.4050 ####[facility] [address] [place], [address] AST [Catalytic activity/Vol] 21 U/L Normal <=37 [facility] Comment on above: Performed By: #### L 100.0100, L500.4050 ####[facility] [address] [place], [address] Bilirubin [Mass/Vol] 0.35 mg/dL Normal 0.00-1.30 [facility] Comment on above: Performed By: #### L 100.0100, L500.4050 ####[facility] [address] [place], [address] BUN/CRE 24.4 RATIO High 10-20 [facility] Comment on above: Performed By: #### L 100.0100, L500.4050 ####[facility] [address] [place], [address] Calcium [Mass/Vol] 9.1 mg/dL Normal 7.6-11.0 [facility] Comment on above: Performed By: #### L 100.0100, L500.4050 ####[facility] [address] [place], [address] Chloride [Moles/Vol] 99 mmol/L Normal 98-108 [facility] Comment on above: Performed By: #### L 100.0100, L500.4050 ####[facility] [address] [place], [address] CO2 [Moles/Vol] 22.7 mmol/L Normal 21.0-32.0 [facility] Comment on above: Performed By: #### L 100.0100, L500.4050 ####[facility] [address] [place], [address] Creatinine [Mass/Vol] 2.95 mg/dL High 0.70-1.20 [facility] Comment on above: Performed By: #### L 100.0100, L500.4050 ####[facility] [address] [place], [address] ECRCL 17.72 ml/min Low 50-250 [facility] Comment on above: Performed By: #### L 100.0100, L500.4050 ####[facility] [address] [place], [address] GAP 15 Normal 5-15 [facility] Comment on above: Performed By: #### L 100.0100, L500.4050 ####[facility] [address] [place], [address] GFR/1.73 sq M.predicted among non-blacks MDRD (S/P/Bld) [Vol rate/Area] 21 mL/min/{1.73_m2} Low >60 [facility] Comment on above: Result Comment: mL/m in/1.73m2 CKD-EPI Creatinine Equation (2020) Performed By: #### L 100.0100, L500.4050 ####[facility] [address] [place], [address] Globulin (S) [Mass/Vol] 2.5 g/dL Normal 2.2-4.2 [facility] Comment on above: Performed By: #### L 100.0100, L500.4050 ####[facility] [address] [place], [address] Glucose [Mass/Vol] 375 mg/dL High 70-99 [facility] Comment on above: Performed By: #### L 100.0100, L500.4050 ####[facility] [address] [place], [address] Potassium [Moles/Vol] 4.7 mmol/L Normal 3.3-5.1 [facility] Comment on above: Performed By: #### L 100.0100, L500.4050 ####[facility] [address] [place], [address] Sodium [Moles/Vol] 136 mmol/L Normal 133-145 [facility] Comment on above: Performed By: #### L 100.0100, L500.4050 ####[facility] [address] [place], [address] T PROT 6.2 g/dL Normal 5.9-8.4 [facility] Comment on above: Performed By: #### L 100.0100, L500.4050 ####[facility] [address] [place], [address] Urea nitrogen [Mass/Vol] 72 mg/dL High 4-19 [facility] Comment on above: Performed By: #### L 100.0100, L500.4050 ####[facility] [address] [place], [address] Consultation - Cardiologyon 04-20-2025 Consultation - Cardiology Normal [facility] Electrocardiogram reportOrde red By: Barbie Martin on 04-20-2025 EKG study [facility] Work Phone: [phone] Eosinophil percentageOrdered By: Nancy Henson on 04-20-2025 Eosinophils/100 WBC (Bld) 0.0 % 0-5 [facility] Erythrocyte distribution wid th ratioOrdered By: Nancy Henson on 04-20-2025 Erythrocyte distribution width (RBC) [Ratio] 13.6 % 11.6-14.6 [facility] Erythrocyte distribution wid th standard deviationOrdered By: Nancy Henson on 04-20-2025 Erythrocyte distribution width (RBC) [Ratio] 46.0 fl High 35.1-43.9 [facility] Hematocrit Auto (Bld) [Volum e fraction]Ordered By: Nancy Henson on 04-20-2025 Hematocrit (Bld) [Volume fraction] 24.6 % Low 40-54 [facility] Hemoglobin measurementOrdere d By: Nancy Henson on 04-20-2025 Hemoglobin (Bld) [Mass/Vol] 7.9 g/dL Low 13.0-16.5 [facility] Immature granulocytes/100 WB C Auto (Bld)Ordered By: Nancy Henson on 04-20-2025 Immature granulocytes/100 WBC (Bld) 0.800 % 0.0-0.9 [facility] MCV (mean corpuscular volume ) determinationOrdered By: Nancy Henson on 04-20-2025 MCV (RBC) [Entitic vol] 93.2 fL 80-94 [facility] Mean corpuscular hemoglobin (MCH) determinationOrdered By: Nancy Henson on 04-20-2025 MCH (RBC) [Entitic mass] 29.9 pg 27.0-32.0 [facility] Monocyte percentageOrdered B y: Nancy Henson on 04-20-2025 Monocytes/100 WBC (Bld) 1.7 % 0-10 [facility] Neutrophil percentageOrdered By: Nancy Henson on 04-20-2025 Neutrophils/100 WBC (Bld) 93.9 % High 47-70 [facility] No Panel InformationOrdered By: Nancy Henson on 04-20-2025 21 U/L <38 [facility] Platelet countOrdered By: Juwan Henson on 04-20-2025 Platelets (Bld) [#/Vol] 216 10*3/uL 150-450 [facility] RBC Auto (Bld) [#/Vol]Ordere d By: Nancy Henson on 04-20-2025 RBC (Bld) [#/Vol] 2.64 10*6/uL Low 4.6-6.2 [facility] Serum globulin measurementOr dered By: Nancy Henson on 04-20-2025 Globulin (S) [Mass/Vol] 2.5 g/dL 2.2-4.2 [facility] Serum or plasma alanine clayton otransferase (ALT) measurementOrdered By: Nancy Henson on 04-20-2025 ALT [Catalytic activity/Vol] 27 U/L <47 [facility] Serum or plasma albumin nikkie urement (mass/volume)Ordered By: Nancy Henson on 04-20-2025 Albumin [Mass/Vol] 3.7 g/dL 3.4-4.8 [facility] Serum or plasma albumin/glob ulin mass ratioOrdered By: Nancy Henson on 04-20-2025 Albumin/Globulin [Mass ratio] 1.5 {ratio} 0.9-2.4 [facility] Serum or plasma alkaline dwight sphatase measurementOrdered By: Nancy Henson on 04-20-2025 ALP [Catalytic activity/Vol] 78 U/L 40-129 [facility] Total proteinOrdered By: Saravanan Henson on 04-20-2025 Protein [Mass/Vol] 6.2 g/dL 5.9-8.4 [facility] White blood cell (WBC) count Ordered By: Nancy Henson on 04-20-2025 WBC (Bld) [#/Vol] 14.9 10*3/uL High 4.4-11.0 [facility] 12 Lead EKGon 04-19-2025 12 Lead EKG Normal [facility] 12 Lead EKG Normal [facility] Absolute lymphocyte countOrd ered By: Arnulfo Jose on 04-19-2025 Lymphocytes Auto (Unsp spec) [#/Vol] 1.40 10*3/uL 0.83-4.51 [facility] Anion gap in Serum or Plasma Ordered By: Arnulfo Jose on 04-19-2025 Anion gap [Moles/Vol] 15 mmol/L 5-15 [facility] Assessment of wrist artery p atency prior to arterial punctureOrdered By: Nancy Henson on 04-19-2025 Arterial patency Wrist artery --pre arterial puncture N/A [facility] Arterial patency Wrist artery --pre arterial puncture Positive [facility] Automated lymphocyte count a s percentage of total leukocytesOrdered By: Arnulfo Jose on 04-19-2025 Lymphocytes/100 WBC Auto (Unsp spec) 10.0 % Low 19-41 [facility] BUN/creatinine ratioOrdered By: Arnulfo Jose on 04-19-2025 Urea nitrogen/Creatinine [Mass ratio] 23.8 mg/mg High 10-20 [facility] Basic Metabolic Profile (BMP )on 04-19-2025 BUN/CRE 24.8 RATIO High 10-20 [facility] Comment on above: Performed By: #### L 500.2500 ####[facility] [address] [place], [address] Calcium [Mass/Vol] 9.1 mg/dL Normal 7.6-11.0 [facility] Comment on above: Performed By: #### L 500.2500 ####[facility] [address] [place], [address] Chloride [Moles/Vol] 101 mmol/L Normal 98-108 [facility] Comment on above: Performed By: #### L 500.2500 ####[facility] [address] [place], [address] CO2 [Moles/Vol] 21.1 mmol/L Normal 21.0-32.0 [facility] Comment on above: Performed By: #### L 500.2500 ####[facility] [address] [place], [address] Creatinine [Mass/Vol] 2.79 mg/dL High 0.70-1.20 [facility] Comment on above: Performed By: #### L 500.2500 ####[facility] [address] [place], [address] ECRCL 18.74 ml/min Low 50-250 [facility] Comment on above: Performed By: #### L 500.2500 ####[facility] [address] [place], [address] GAP 15 Normal 5-15 [facility] Comment on above: Performed By: #### L 500.2500 ####[facility] [address] [place], [address] GFR/1.73 sq M.predicted among non-blacks MDRD (S/P/Bld) [Vol rate/Area] 22 mL/min/{1.73_m2} Low >60 [facility] Comment on above: Result Comment: mL/m in/1.73m2 CKD-EPI Creatinine Equation (2020) Performed By: #### L 500.2500 ####[facility] [address] [place], [address] Glucose [Mass/Vol] 447 mg/dL High 70-99 [facility] Comment on above: Performed By: #### L 500.2500 ####[facility] [address] [place], [address] Potassium [Moles/Vol] 4.9 mmol/L Normal 3.3-5.1 [facility] Comment on above: Performed By: #### L 500.2500 ####[facility] [address] [place], [address] Sodium [Moles/Vol] 137 mmol/L Normal 133-145 [facility] Comment on above: Performed By: #### L 500.2500 ####[facility] [address] [place], [address] Urea nitrogen [Mass/Vol] 69 mg/dL High 4-19 [facility] Comment on above: Performed By: #### L 500.2500 ####[facility] [address] [place], [address] BUN/CRE 23.8 RATIO High 10-20 [facility] Comment on above: Performed By: #### L 503.7505, L501.5200, L500.2500, L100.0100 ####[facility] [address] [place], [address] Calcium [Mass/Vol] 8.6 mg/dL Normal 7.6-11.0 [facility] Comment on above: Performed By: #### L 503.7505, L501.5200, L500.2500, L100.0100 ####[facility] [address] [place], [address] Chloride [Moles/Vol] 100 mmol/L Normal 98-108 [facility] Comment on above: Performed By: #### L 503.7505, L501.5200, L500.2500, L100.0100 ####[facility] [address] [place], [address] CO2 [Moles/Vol] 20.9 mmol/L Low 21.0-32.0 [facility] Comment on above: Performed By: #### L 503.7505, L501.5200, L500.2500, L100.0100 ####[facility] [address] [place], [address] Creatinine [Mass/Vol] 2.73 mg/dL High 0.70-1.20 [facility] Comment on above: Performed By: #### L 503.7505, L501.5200, L500.2500, L100.0100 ####[facility] [address] [place], [address] ECRCL 19.84 ml/min Low 50-250 [facility] Comment on above: Performed By: #### L 503.7505, L501.5200, L500.2500, L100.0100 ####[facility] [address] [place], [address] GAP 15 Normal 5-15 [facility] Comment on above: Performed By: #### L 503.7505, L501.5200, L500.2500, L100.0100 ####[facility] [address] [place], [address] GFR/1.73 sq M.predicted among non-blacks MDRD (S/P/Bld) [Vol rate/Area] 23 mL/min/{1.73_m2} Low >60 [facility] Comment on above: Result Comment: mL/m in/1.73m2 CKD-EPI Creatinine Equation (2020) Performed By: #### L 503.7505, L501.5200, L500.2500, L100.0100 ####[facility] [address] [place], [address] Glucose [Mass/Vol] 406 mg/dL High 70-99 [facility] Comment on above: Performed By: #### L 503.7505, L501.5200, L500.2500, L100.0100 ####[facility] [address] [place], [address] Potassium [Moles/Vol] 5.9 mmol/L High 3.3-5.1 [facility] Comment on above: Performed By: #### L 503.7505, L501.5200, L500.2500, L100.0100 ####[facility] [address] [place], [address] Sodium [Moles/Vol] 136 mmol/L Normal 133-145 [facility] Comment on above: Performed By: #### L 503.7505, L501.5200, L500.2500, L100.0100 ####[facility] [address] [place], [address] Urea nitrogen [Mass/Vol] 65 mg/dL High 4-19 [facility] Comment on above: Performed By: #### L 503.7505, L501.5200, L500.2500, L100.0100 ####[facility] [address] [place], [address] Basophil percentageOrdered B y: Arnulfo Jose on 06-19-2025 Basophils/100 WBC (Bld) 0.5 % 0-1 [facility] Bedside Glucoseon 04-19-2025 FINGERSTICK GLU 393 mg/dL High 74-106 [facility] Comment on above: Result Comment: ADITI GEMENT OF PATIENT CARE PER NURSING PROTOCOL Performed By: #### L 501.080 ####[facility] [address] [place], [address] FINGERSTICK GLU 374 mg/dL High 74-106 [facility] Comment on above: Result Comment: ADITI GEMENT OF PATIENT CARE PER NURSING PROTOCOL Performed By: #### L 501.080 ####[facility] [address] [place], [address] FINGERSTICK GLU 376 mg/dL High [address] [place] [address] Comment on above: Result Comment: ADITI GEMENT OF PATIENT CARE PER NURSING PROTOCOL Performed By: #### L 501.080 ####[facility] [address] [place], [address] FINGERSTICK GLU 403 mg/dL High [address] [place] [address] Comment on above: Result Comment: ADITI GEMENT OF PATIENT CARE PER NURSING PROTOCOL Performed By: #### L 501.080 ####[facility] [address] [place], [address] FINGERSTICK GLU 437 mg/dL High [address] [place] [address] Comment on above: Result Comment: ADITI GEMENT OF PATIENT CARE PER NURSING PROTOCOL Performed By: #### L 501.080 ####[facility] [address] [place], [address] Bilirubin Test strip Ql (U)O rdered By: Nancy Henson on 04-19-2025 Bilirubin Ql (U) Negative Negative [facility] Blood Gases by CPSon 025 FILI TEST N/A Normal [facility] Comment on above: Performed By: #### L 9000.0800 ####[facility] [address] [place], [address] Base excess Calc (Bld) [Moles/Vol] -2 mmol/L Normal -2 to +2 [facility] Comment on above: Performed By: #### L 8999.0800 ####[facility] [address] [place], [address] Blood Gas Type ART Normal [facility] Comment on above: Performed By: #### L 8999.0800 ####[facility] [address] [place], [address] CO2 [Moles/Vol] 23 mmol/L Normal [facility] Comment on above: Performed By: #### L 8999.0800 ####[facility] [address] [place], [address] Comment AIRVO 50L 50% Normal [facility] Comment on above: Performed By: #### L 8999.0800 ####[facility] [address] [place], [address] HCO3 (Bld) [Moles/Vol] 22.4 mmol/L Normal 22-26 [facility] Comment on above: Performed By: #### L 8999.0800 ####[facility] [address] [place], [address] Mode Not entered Normal [facility] Comment on above: Performed By: #### L 0.0800 ####[facility] [address] [place], [address] O2 Delivery Dev AIRVO Normal [facility] Comment on above: Performed By: #### L 8999.0800 ####[facility] [address] [place], [address] pCO2 33.2 mmHg Low 35-45 [facility] Comment on above: Performed By: #### L 0.0800 ####[facility] [address] [place], [address] pH (Bld) 7.44 [pH] Normal 7.35-7.45 [facility] Comment on above: Performed By: #### L 9000.0800 ####[facility] [address] [place], [address] PO2 92 mmHG Normal 75-100 [facility] Comment on above: Performed By: #### L 9000.0800 ####[facility] [address] [place], [address] SITE L Radial Normal [facility] Comment on above: Performed By: #### L 9000.0800 ####[facility] [address] [place], [address] SO2 98 Normal 95-99 [facility] Comment on above: Performed By: #### L 9000.0800 ####[facility] [address] [place], [address] FILI TEST Positive Normal [facility] Comment on above: Performed By: #### L 9000.0800 ####[facility] [address] [place], [address] Base excess Calc (Bld) [Moles/Vol] -2 mmol/L Normal -2 to +2 [facility] Comment on above: Performed By: #### L 9000.0800 ####[facility] [address] [place], [address] Blood Gas Type ART Normal [facility] Comment on above: Performed By: #### L 9000.0800 ####[facility] [address] [place], [address] CO2 [Moles/Vol] 23 mmol/L Normal [facility] Comment on above: Performed By: #### L 9000.0800 ####[facility] [address] [place], [address] FI02 50.0 Normal [facility] Comment on above: Performed By: #### L 9000.0800 ####[facility] [address] [place], [address] HCO3 (Bld) [Moles/Vol] 21.6 mmol/L Low 22-26 [facility] Comment on above: Performed By: #### L 9000.0800 ####[facility] [address] [place], [address] Mode Not entered Normal [facility] Comment on above: Performed By: #### L 9000.0800 ####[facility] [address] [place], [address] O2 Delivery Dev HFNC Normal [facility] Comment on above: Performed By: #### L 9000.0800 ####[facility] [address] [place], [address] pCO2 30.8 mmHg Low 35-45 [facility] Comment on above: Performed By: #### L 9000.0800 ####[facility] [address] [place], [address] pH (Bld) 7.45 [pH] Normal 7.35-7.45 [facility] Comment on above: Performed By: #### L 9000.0800 ####[facility] [address] [place], [address] PO2 103 mmHG High 75-100 [facility] Comment on above: Performed By: #### L 9000.0800 ####[facility] [address] [place], [address] SITE L Radial Normal [facility] Comment on above: Performed By: #### L 9000.0800 ####[facility] [address] [place], [address] SO2 98 Normal 95-99 [facility] Comment on above: Performed By: #### L 9000.0800 ####[facility] [address] [place], [address] Blood base excess determinat ionOrdered By: Nancy Henson on 04-19-2025 Base excess Calc (BldV) [Moles/Vol] -2 mmol/L -2-2 [facility] Base excess Calc (BldV) [Moles/Vol] -2 mmol/L -2-2 [facility] Blood bicarbonate measuremen tOrdered By: Nancy Henson on 04-19-2025 HCO3 (Bld) [Moles/Vol] 22.4 mmol/L 22- [facility] HCO3 (Bld) [Moles/Vol] 21.6 mmol/L Low -26 [facility] CBC W/Diff, Automatedon 04-01 Absolute Lymph 0.33 X10 3/uL Low 0.83-4.51 [facility] Comment on above: Performed By: #### L 501.9985, L100.0100, L501.2300 ####[facility] [address] [place], [address] Absolute Neut 12.7 X10 3/uL High 2.0-7.7 [facility] Comment on above: Performed By: #### L 501.9985, L100.0100, L501.2300 ####[facility] [address] [place], [address] Basophils/100 WBC (Bld) 0.2 % Normal 0-1 [facility] Comment on above: Performed By: #### L 501.9985, L100.0100, L501.2300 ####[facility] [address] [place], [address] Eosinophils/100 WBC (Bld) 0.1 % Normal 0-5 [facility] Comment on above: Performed By: #### L 501.9985, L100.0100, L501.2300 ####[facility] [address] [place], [address] Erythrocyte distribution width (RBC) [Ratio] 13.4 % Normal 11.6-14.6 [facility] Comment on above: Performed By: #### L 501.9985, L100.0100, L501.2300 ####[facility] [address] [place], [address] Hematocrit (Bld) [Volume fraction] 23.7 % Low 40-54 [facility] Comment on above: Performed By: #### L 501.9985, L100.0100, L501.2300 ####[facility] [address] [place], [address] Hemoglobin (Bld) [Mass/Vol] 7.5 g/dL Low 13.0-16.5 [facility] Comment on above: Performed By: #### L 501.9985, L100.0100, L501.2300 ####[facility] [address] [place], [address] IG% 0.600 Normal 0.0-0.9 [facility] Comment on above: Result Comment: IG% - Immature Granulocytes (promyelocytes, myelocytes andmetamyelocytes) > 1% indicates that a LEFT SHIFT is Present. Performed By: #### L 501.9985, L100.0100, L501.2300 ####[facility] [address] [place], [address] Lymphocytes/100 WBC (Bld) 2.4 % Low 19-41 [facility] Comment on above: Performed By: #### L 501.9985, L100.0100, L501.2300 ####[facility] [address] [place], [address] MCH (RBC) [Entitic mass] 29.8 pg Normal 27.0-32.0 [facility] Comment on above: Performed By: #### L 501.9985, L100.0100, L501.2300 ####[facility] [address] [place], [address] MCHC (RBC) [Mass/Vol] 31.6 g/dL Low 32-36 [facility] Comment on above: Performed By: #### L 501.9985, L100.0100, L501.2300 ####[facility] [address] [place], [address] MCV (RBC) [Entitic vol] 94.0 fL Normal 80-94 [facility] Comment on above: Performed By: #### L 501.9985, L100.0100, L501.2300 ####[facility] [address] [place], [address] Monocytes/100 WBC (Bld) 2.4 % Normal 0-10 [facility] Comment on above: Performed By: #### L 501.9985, L100.0100, L501.2300 ####[facility] [address] [place], [address] Neutrophils/100 WBC (Bld) 94.3 % High 47-70 [facility] Comment on above: Performed By: #### L 501.9985, L100.0100, L501.2300 ####[facility] [address] [place], [address] Nucleated RBC (Bld) [#/Vol] 0 10*3/uL Normal 0-5 [facility] Comment on above: Performed By: #### L 501.9985, L100.0100, L501.2300 ####[facility] [address] [place], [address] Platelet mean volume (Bld) [Entitic vol] 11.3 fL Normal 6.2-12.0 [facility] Comment on above: Performed By: #### L 501.9985, L100.0100, L501.2300 ####[facility] [address] [place], [address] Platelets (Bld) [#/Vol] 218 10*3/uL Normal 150-450 [facility] Comment on above: Performed By: #### L 501.9985, L100.0100, L501.2300 ####[facility] [address] [place], [address] RBC (Bld) [#/Vol] 2.52 10*6/uL Low 4.6-6.2 [facility] Comment on above: Performed By: #### L 501.9985, L100.0100, L501.2300 ####[facility] [address] [place], [address] RDW SD 46.2 fl High 35.1-43.9 [facility] Comment on above: Performed By: #### L 501.9985, L100.0100, L501.2300 ####[facility] [address] [place], [address] WBC (Bld) [#/Vol] 13.5 10*3/uL High 4.4-11.0 [facility] Comment on above: Performed By: #### L 501.9985, L100.0100, L501.2300 ####[facility] [address] [place], [address] Absolute Lymph 1.40 X10 3/uL Normal 0.83-4.51 [facility] Comment on above: Performed By: #### L 503.7505, L501.5200, L500.2500, L100.0100 ####[facility] [address] [place], [address] Absolute Neut 11.5 X10 3/uL High 2.0-7.7 [facility] Comment on above: Performed By: #### L 503.7505, L501.5200, L500.2500, L100.0100 ####[facility] [address] [place], [address] Basophils/100 WBC (Bld) 0.5 % Normal 0-1 [facility] Comment on above: Performed By: #### L 503.7505, L501.5200, L500.2500, L100.0100 ####[facility] [address] [place], [address] Eosinophils/100 WBC (Bld) 1.0 % Normal 0-5 [facility] Comment on above: Performed By: #### L 503.7505, L501.5200, L500.2500, L100.0100 ####[facility] [address] [place], [address] Erythrocyte distribution width (RBC) [Ratio] 13.4 % Normal 11.6-14.6 [facility] Comment on above: Performed By: #### L 503.7505, L501.5200, L500.2500, L100.0100 ####[facility] [address] [place], [address] Hematocrit (Bld) [Volume fraction] 27.5 % Low 40-54 [facility] Comment on above: Performed By: #### L 503.7505, L501.5200, L500.2500, L100.0100 ####[facility] [address] [place], [address] Hemoglobin (Bld) [Mass/Vol] 8.8 g/dL Low 13.0-16.5 [facility] Comment on above: Performed By: #### L 503.7505, L501.5200, L500.2500, L100.0100 ####[facility] [address] [place], [address] IG% 0.500 Normal 0.0-0.9 [facility] Comment on above: Result Comment: IG% - Immature Granulocytes (promyelocytes, myelocytes andmetamyelocytes) > 1% indicates that a LEFT SHIFT is Present. Performed By: #### L 503.7505, L501.5200, L500.2500, L100.0100 ####[facility] [address] [place], [address] Lymphocytes/100 WBC (Bld) 10.0 % Low 19-41 [facility] Comment on above: Performed By: #### L 503.7505, L501.5200, L500.2500, L100.0100 ####[facility] [address] [place], [address] MCH (RBC) [Entitic mass] 30.0 pg Normal 27.0-32.0 [facility] Comment on above: Performed By: #### L 503.7505, L501.5200, L500.2500, L100.0100 ####[facility] [address] [place], [address] MCHC (RBC) [Mass/Vol] 32.0 g/dL Normal 32-36 [facility] Comment on above: Performed By: #### L 503.7505, L501.5200, L500.2500, L100.0100 ####[facility] [address] [place], [address] MCV (RBC) [Entitic vol] 93.9 fL Normal 80-94 [facility] Comment on above: Performed By: #### L 503.7505, L501.5200, L500.2500, L100.0100 ####[facility] [address] [place], [address] Monocytes/100 WBC (Bld) 5.7 % Normal 0-10 [facility] Comment on above: Performed By: #### L 503.7505, L501.5200, L500.2500, L100.0100 ####[facility] [address] [place], [address] Neutrophils/100 WBC (Bld) 82.3 % High 47-70 [facility] Comment on above: Performed By: #### L 503.7505, L501.5200, L500.2500, L100.0100 ####[facility] [address] [place], [address] Nucleated RBC (Bld) [#/Vol] 0 10*3/uL Normal 0-5 [facility] Comment on above: Performed By: #### L 503.7505, L501.5200, L500.2500, L100.0100 ####[facility] [address] [place], [address] Platelet mean volume (Bld) [Entitic vol] 11.4 fL Normal 6.2-12.0 [facility] Comment on above: Performed By: #### L 503.7505, L501.5200, L500.2500, L100.0100 ####[facility] [address] [place], [address] Platelets (Bld) [#/Vol] 289 10*3/uL Normal 150-450 [facility] Comment on above: Performed By: #### L 503.7505, L501.5200, L500.2500, L100.0100 ####[facility] [address] [place], [address] RBC (Bld) [#/Vol] 2.93 10*6/uL Low 4.6-6.2 [facility] Comment on above: Performed By: #### L 503.7505, L501.5200, L500.2500, L100.0100 ####[facility] [address] [place], [address] RDW SD 46.1 fl High 35.1-43.9 [facility] Comment on above: Performed By: #### L 503.7505, L501.5200, L500.2500, L100.0100 ####[facility] [address] [place], [address] WBC (Bld) [#/Vol] 14.0 10*3/uL High 4.4-11.0 [facility] Comment on above: Performed By: #### L 503.7505, L501.5200, L500.2500, L100.0100 ####[facility] [address] [place], [address] Carbon dioxide, total [Moles /volume] in Central venous bloodOrdered By: Arnulfo Jose on 04-19-2025 CO2 [Moles/Vol] 20.9 mmol/L Low 21.0-32.0 [facility] Chest 1 View (Portable)on Chest 1 View (Portable) Normal [facility] Chloride assayOrdered By: Stephenie Jose on 04-19-2025 Chloride [Moles/Vol] 100 mmol/L 98-108 [facility] Comprehensive Metabolic Prof ilon 04-19-2025 Albumin [Mass/Vol] 3.3 g/dL Low 3.4-4.8 [facility] Comment on above: Performed By: #### L 503.7505, L501.9520, L500.4050 ####[facility] [address] [place], [address] Albumin/Globulin [Mass ratio] 1.3 {ratio} Normal 0.9-2.4 [facility] Comment on above: Performed By: #### L 503.7505, L501.9520, L500.4050 ####[facility] [address] [place], [address] ALK PHOS 76 U/L Normal 40-129 [facility] Comment on above: Performed By: #### L 503.7505, L501.9520, L500.4050 ####[facility] [address] [place], [address] ALT [Catalytic activity/Vol] 30 U/L Normal <=46 [facility] Comment on above: Performed By: #### L 503.7505, L501.9520, L500.4050 ####[facility] [address] [place], [address] AST [Catalytic activity/Vol] 26 U/L Normal <=37 [facility] Comment on above: Performed By: #### L 503.7505, L501.9520, L500.4050 ####[facility] [address] [place], [address] Bilirubin [Mass/Vol] 0.31 mg/dL Normal 0.00-1.30 [facility] Comment on above: Performed By: #### L 503.7505, L501.9520, L500.4050 ####[facility] [address] [place], [address] BUN/CRE 23.4 RATIO High 10-20 [facility] Comment on above: Performed By: #### L 503.7505, L501.9520, L500.4050 ####[facility] [address] [place], [address] Calcium [Mass/Vol] 9.3 mg/dL Normal 7.6-11.0 [facility] Comment on above: Performed By: #### L 503.7505, L501.9520, L500.4050 ####[facility] [address] [place], [address] Chloride [Moles/Vol] 101 mmol/L Normal 98-108 [facility] Comment on above: Performed By: #### L 503.7505, L501.9520, L500.4050 ####[facility] [address] [place], [address] CO2 [Moles/Vol] 17.8 mmol/L Low 21.0-32.0 [facility] Comment on above: Performed By: #### L 503.7505, L501.9520, L500.4050 ####[facility] [address] [place], [address] Creatinine [Mass/Vol] 2.95 mg/dL High 0.70-1.20 [facility] Comment on above: Performed By: #### L 503.7505, L501.9520, L500.4050 ####[facility] [address] [place], [address] ECRCL 17.72 ml/min Low 50-250 [facility] Comment on above: Performed By: #### L 503.7505, L501.9520, L500.4050 ####[facility] [address] [place], [address] GAP 18 High 5-15 [facility] Comment on above: Performed By: #### L 503.7505, L501.9520, L500.4050 ####[facility] [address] [place], [address] GFR/1.73 sq M.predicted among non-blacks MDRD (S/P/Bld) [Vol rate/Area] 21 mL/min/{1.73_m2} Low >60 [facility] Comment on above: Result Comment: mL/m in/1.73m2 CKD-EPI Creatinine Equation (2020) Performed By: #### L 503.7505, L501.9520, L500.4050 ####[facility] [address] [place], [address] Globulin (S) [Mass/Vol] 2.5 g/dL Normal 2.2-4.2 [facility] Comment on above: Performed By: #### L 503.7505, L501.9520, L500.4050 ####[facility] [address] [place], [address] Glucose [Mass/Vol] 447 mg/dL High 70-99 [facility] Comment on above: Performed By: #### L 503.7505, L501.9520, L500.4050 ####[facility] [address] [place], [address] Potassium [Moles/Vol] 5.2 mmol/L High 3.3-5.1 [facility] Comment on above: Performed By: #### L 503.7505, L501.9520, L500.4050 ####[facility] [address] [place], [address] Sodium [Moles/Vol] 137 mmol/L Normal 133-145 [facility] Comment on above: Performed By: #### L 503.7505, L501.9520, L500.4050 ####[facility] [address] [place], [address] T PROT 5.8 g/dL Low 5.9-8.4 [facility] Comment on above: Performed By: #### L 503.7505, L501.9520, L500.4050 ####[facility] [address] [place], [address] Urea nitrogen [Mass/Vol] 69 mg/dL High 4-19 [facility] Comment on above: Performed By: #### L 503.7505, L501.9520, L500.4050 ####[facility] [address] [place], [address] Consultation - Nephrologyon 04-19-2025 Consultation - Nephrology Normal [facility] D-Dimer Quantitative (DVT/PE )on 04-19-2025 D-DIMER QUANT 2.17 FEU/ug/m Invalid Interpretation Code 0.27-0.49 [facility] Comment on above: Result Comment: D-Di shyanne ELEVATED (>0.49): Additional studies and clinicalassessments are indicated to conclude diagnosis of:Deep Vein Thrombosis (DVT) or Pulmonary Embolism (PE)CRITICAL VALUE CALLED TO DELFIN QQPFKA08/19/25 0101 Lydia Villanueva.RESULTS READ BACK BY SAME. Performed By: #### L 509.7001, L300.8000 ####[facility] [address] [place], [address] Emergency Department Summary on 04-19-2025 Emergency Department Summary Normal [facility] Eosinophil percentageOrdered By: Arnulfo Jose on 04-19-2025 Eosinophils/100 WBC (Bld) 1.0 % 0-5 [facility] Erythrocyte distribution wid th ratioOrdered By: Arnulfo Jose on 04-19-2025 Erythrocyte distribution width (RBC) [Ratio] 13.4 % 11.6-14.6 [facility] Erythrocyte distribution wid th standard deviationOrdered By: Arnulfo Jose on 04-19-2025 Erythrocyte distribution width (RBC) [Ratio] 46.1 fl High 35.1-43.9 [facility] Glomerular filtration rate ( GFR) estimation/1.73 sq m using serum, plasma, or whole bOrdered By: Arnulfo Jose on 04-19-2025 GFR/1.73 sq M.predicted among non-blacks MDRD (S/P/Bld) [Vol rate/Area] 23 mL/min/{1.73_m2} Low >60 [facility] Glucose measurement at [facility] deOrdered By: Nancy Henson on 04-19-2025 Glucose [Mass/Vol] 437 mg/dL High 74-106 [facility] H AND P Exam - Hospitaliston 04-19-2025 H&P Exam - Hospitalist Normal [facility] Hematocrit Auto (Bld) [Volum e fraction]Ordered By: Arnulfo Jose on 04-19-2025 Hematocrit (Bld) [Volume fraction] 27.5 % Low 40-54 [facility] Hemoglobin A1con 04-19-2025 HbA1c (Bld) [Mass fraction] 7.1 % High <=5.6 [facility] Comment on above: Result Comment: Norm al < 5.7 % Prediabetic 5.7 - 6.4 % Diabetic >or= 6.5 % Please note range changes. Performed By: #### L 501.9985, L100.0100, L501.2300 ####[facility] [address] [place], [address] Hemoglobin A1c percentageOrd ered By: Nancy Henson on 04-19-2025 HbA1c (Bld) [Mass fraction] 7.1 % High <5.7 [facility] Hemoglobin measurementOrdere d By: Arnulfo Jose on 04-19-2025 Hemoglobin (Bld) [Mass/Vol] 8.8 g/dL Low 13.0-16.5 [facility] Immature granulocytes/100 WB C Auto (Bld)Ordered By: Arnulfo Jose on 04-19-2025 Immature granulocytes/100 WBC (Bld) 0.500 % 0.0-0.9 [facility] Influenza virus A and B and SARS-CoV-2 (COVID-19) and Respiratory syncytial virus RNAOrdered By: Arnulfo Jose on 04-19-2025 SARS-CoV-2 (COVID-19) RNA ALICE+probe Ql (Unsp spec) [facility] Ketones Test strip Ql (U)Ord ered By: Nancy Henson on 04-19-2025 Ketones Ql (U) Negative Negative [facility] L499.0042on 04-19-2025 Trop T High Sen 385 ng/L Invalid Interpretation Code <=22 [facility] Comment on above: Result Comment: Crit ical Result(s) Called at 0636: by: BIPIN BROWNE. ??Results read back by same. Performed By: #### L 499.0042 ####[facility] [address] [place], [address] L499.0043on 04-19-2025 Trop T High Sen 350 ng/L Invalid Interpretation Code <=22 [facility] Comment on above: Result Comment: Crit ical Result(s) Called at: 04/19/2025-10:51 by: Neal escalona Zelalem Fowler.??Results read back by same. Performed By: #### L 499.0043 ####[facility] [address] [place], [address] L501.4021on 04-19-2025 Trop T High Sen 394 ng/L Invalid Interpretation Code <=22 [facility] Comment on above: Result Comment: Crit ical Result(s) Called at 0511: by: BIPIN SILVERMAN.??Results read back by same. Performed By: #### L 501.4021 ####[facility] [address] [place], [address] L503.7505on 04-19-2025 Natriuretic peptide B (Bld) [Mass/Vol] 96717 pg/mL High <=1800 [facility] Comment on above: Result Comment: Hear t Failure Unlikely: < 300 pg/mLHeart Failure Likely< 50 Years: > 450 pg/mL50-75 Years: > 900 pg/mL>75 Years: > 1800 pg/mL Performed By: #### L 503.7505, L501.9520, L500.4050 ####[facility] [address] [place], [address] Natriuretic peptide B (Bld) [Mass/Vol] 27822 pg/mL High <=1800 [facility] Comment on above: Result Comment: Hear t Failure Unlikely: < 300 pg/mLHeart Failure Likely< 50 Years: > 450 pg/mL50-75 Years: > 900 pg/mL>75 Years: > 1800 pg/mL Performed By: #### L 503.7505, L501.5200, L500.2500, L100.0100 ####[facility] [address] [place], [address] L509.7001on 04-19-2025 Procalcitonin 0.10 ng/mL Normal <=0.10 [facility] Comment on above: Result Comment: Inte rpretation:<0.10-0.25 ng/mL: Antibiotic therapy discouraged. Bacterialinfection unlikely.0.25-0.50 ng/mL: Antibiotic therapy encouraged. Bacterialinfection possible.>0.50 ng/mL: Antibiotic therapy strongly encouraged.Suggestive of presence of bacterial infection.PCT should always be interpreted in the clinical context ofthe patient. Therefore, clinicians should use the PCTresults in conjunction with other laboratory findings andclinical signs of the patient. Performed By: #### L 509.7001, L300.8000 ####[facility] [address] [place], [address] Lactic Acidon 04-19-2025 Lactate [Moles/Vol] 2.7 mmol/L Invalid Interpretation Code 0.0-2.0 [facility] Comment on above: Result Comment: Crit ical Result(s) Called at: 04/19/2025-10:35 by: Iraida.??Results read back by same. Performed By: #### L 503.6008 ####[facility] [address] [place], [place], [address] Lactate [Moles/Vol] 4.8 mmol/L Invalid Interpretation Code 0.0-2.0 [facility] Comment on above: Order Comment: Y Result Comment: Crit ical Result(s) Called at 0448: by: BIPIN BROWNE. ??Results read back by same. Performed By: #### L 503.6004 ####[facility] [address] [place], [place], [address] Lung Scan Vent/Perfon 2024 Lung Scan Vent/Perf Normal [facility] M100.678on 04-19-2025 M100.678 SARS-CoV-2 (COVID 19) Negative INFLUENZA A Negative INFLUENZA B Negative RSV PCR Negative Normal [facility] Comment on above: Performed By: #### M 100.678 ####[facility] [address] [place], [address] MCV (mean corpuscular volume ) determinationOrdered By: Arnulfo Jose on 04-19-2025 MCV (RBC) [Entitic vol] 93.9 fL 80-94 [facility] Magnesiumon 04-19-2025 Magnesium [Mass/Vol] 2.3 mg/dL High 1.5-2.2 [facility] Comment on above: Performed By: #### L 503.7505, L501.5200, L500.2500, L100.0100 ####[facility] [address] [place], [address] Magnesium measurement (mass/ volume)Ordered By: Arnulfo Jose on 04-19-2025 Magnesium (Unsp spec) [Mass/Vol] 2.3 mg/dL High 1.5-2.2 [facility] Mean corpuscular hemoglobin (MCH) determinationOrdered By: Arnulfo Jose on 04-19-2025 MCH (RBC) [Entitic mass] 30.0 pg 27.0-32.0 [facility] Measurement, pHOrdered By: Nadeem Henson on 04-19-2025 pH (Unsp spec) 7.44 [pH] 7.35-7.45 [facility] pH (Unsp spec) 7.45 [pH] 7.35-7.45 [facility] Monocyte percentageOrdered B y: Arnulfo Jose on 04-19-2025 Monocytes/100 WBC (Bld) 5.7 % 0-10 [facility] Mucus LM Ql (Urine sed)Order ed By: Nancy Henson on 04-19-2025 Mucus Ql (Urine sed) 0 SEEN /hpf [facility] Natriuretic peptide.B prohor katja N-Terminal [Mass/volume] in Serum or PlasmaOrdered By: Nancy Henson on 04-19-2025 Natriuretic peptide.B prohormone N-Terminal [Mass/Vol] 46889 pg/mL High <1800 [facility] Natriuretic peptide.B prohor katja N-Terminal [Mass/volume] in Serum or PlasmaOrdered By: Arnulfo Jose on 04-19-2025 Natriuretic peptide.B prohormone N-Terminal [Mass/Vol] 19554 pg/mL High <1800 [facility] Neutrophil percentageOrdered By: Arnulfo Jose on 04-19-2025 Neutrophils/100 WBC (Bld) 82.3 % High 47-70 [facility] Nitrite Test strip Ql (U)Ord ered By: Nancy Henson on 04-19-2025 Nitrite Ql (U) Negative Negative [facility] No Panel InformationOrdered By: Nancy Henson on 04-19-2025 ART [facility] L Radial [facility] Not entered [facility] AIRVO [facility] AIRVO 50L 50% [facility] ART [facility] L Radial [facility] Not entered [facility] HFNC [facility] Phosphoruson 04-19-2025 Phosphate [Mass/Vol] 4.0 mg/dL Normal 2.7-4.5 [facility] Comment on above: Performed By: #### L 501.9985, L100.0100, L501.2300 ####[facility] [address] [place], [address] Platelet countOrdered By: Stephenie Jose on 04-19-2025 Platelets (Bld) [#/Vol] 289 10*3/uL 150-450 [facility] Potassium measurement (mass/ volume)Ordered By: Arnulfo Jose on 04-19-2025 Potassium (Unsp spec) [Mass/Vol] 5.9 mmol/L High 3.3-5.1 [facility] Procalcitonin [Mass/volume] in Serum or Plasma by ImmunoassayOrdered By: Arnulfo Jose on 04-19-2025 Procalcitonin IA [Mass/Vol] 0.10 ng/mL <0.11 [facility] Protein Test strip Ql (U)Ord ered By: Nancy Henson on 04-19-2025 Protein Ql (U) 30 mg/dl High Negative [facility] RBC Auto (Bld) [#/Vol]Ordere d By: Arnulfo Jose on 04-19-2025 RBC (Bld) [#/Vol] 2.93 10*6/uL Low 4.6-6.2 [facility] Serum creatinine measurement (mass/volume)Ordered By: Arnulfo Jose on 04-19-2025 Creatinine [Mass/Vol] 2.73 mg/dL High 0.70-1.20 [facility] Serum glucose measurement (m ass/volume)Ordered By: Arnulfo Jose on 04-19-2025 Glucose [Mass/Vol] 406 mg/dL High 70-99 [facility] Serum or plasma calcium nikkie urement (mass/volume)Ordered By: Arnulfo Jose on 04-19-2025 Calcium [Mass/Vol] 8.6 mg/dL 7.6-11.0 [facility] Serum or plasma urea nitroge n measurement (mass/volume)Ordered By: Arnulfo Jose on 04-19-2025 Urea nitrogen [Mass/Vol] 65 mg/dL High 4-19 [facility] Sodium levelOrdered By: yTree Jose on 04-19-2025 Sodium [Moles/Vol] 136 mmol/L 133-145 [facility] Squamous epithelial cells de tection in urine sediment by light microscopyOrdered By: Nancy Henson on 04-19-2025 Epithelial cells.squamous LM Ql (Urine sed) 0 SEEN /hpf 0-5 [facility] TSH DL <= 0.005 mIU/L QnOrde red By: Nancy Henson on 04-19-2025 TSH Qn 1.730 uIU/mL 0.300-4.200 [facility] Thyroid Stim Hormone (TSH)on 04-19-2025 TSH 1.730 uIU/mL Normal 0.300-4.200 [facility] Comment on above: Performed By: #### L 503.7505, L501.9520, L500.4050 ####[facility] [address] [place], [address] Total carbon dioxide measure mentOrdered By: Nancy Henson on 04-19-2025 CO2 [Moles/Vol] 23 mmol/L [facility] CO2 [Moles/Vol] 23 mmol/L [facility] Troponin T.cardiac [Mass/vol ume] in Serum or Plasma by High sensitivity methodOrdered By: Nancy Henson on 04-19-2025 Troponin T.cardiac High sensitivity method [Mass/Vol] 350 ng/L High <22 [facility] Troponin T.cardiac High sensitivity method [Mass/Vol] 385 ng/L High <22 [facility] Troponin T.cardiac High sensitivity method [Mass/Vol] 394 ng/L High <22 [facility] Type AND Screenon 04-19-2025 Ab SCREEN GEL Negative Normal [facility] Comment on above: Order Comment: A Performed By: #### B TS ####[facility] [address] [place], [address] Urinalysis, Completeon 04-19 BACTERIA 0 SEEN Normal None Seen [facility] Comment on above: Order Comment: CLEAN CATCH Performed By: #### L 400.0001 ####[facility] [address] [place], [address] EPI,SQUAMOUS 0 SEEN Normal 0-5 [facility] Comment on above: Order Comment: CLEAN CATCH Performed By: #### L 400.0001 ####[facility] [address] [place], [address] Mucus Ql (Urine sed) 0 SEEN Normal [facility] Comment on above: Order Comment: CLEAN CATCH Performed By: #### L 400.0001 ####[facility] [address] [place], [address] RBC 0 SEEN Normal 0-5 [facility] Comment on above: Order Comment: CLEAN CATCH Performed By: #### L 400.0001 ####[facility] [address] [place], [address] WBC 0 SEEN Normal 0-5 [facility] Comment on above: Order Comment: CLEAN CATCH Performed By: #### L 400.0001 ####[facility] [address] [place], [address] Urine clarityOrdered By: Saravanan Henson on 04-19-2025 Clarity (U) Clear Clear [facility] Urine color determinationOrd ered By: Nancy Henson on 04-19-2025 Color (U) Yellow Yellow [facility] Urine glucose detectionOrder ed By: Nancy Henson on 04-19-2025 Glucose Ql (U) 250 mg/dl High Normal [facility] Urine leukocyte esterase det ection by dipstickOrdered By: Nancy Henson on 04-19-2025 Leukocyte esterase Test strip Ql (U) Negative Negative [facility] Urine pHOrdered By: Nancy brooks on 04-19-2025 pH (U) 6.0 [pH] 5.0 - 8.0 [facility] Urine sediment bacteria coun t by microscopy (number/high power field)Ordered By: Nancy Henson on 04-19-2025 Bacteria LM.HPF (Urine sed) [#/Area] 0 /[HPF] None Seen [facility] Urine specific gravity measu rementOrdered By: Nancy Henson on 04-19-2025 Specific gravity (U) [Rel density] 1.015 1.002-1.030 [facility] Urine urobilinogen measureme ntOrdered By: Nancy Henson on 04-19-2025 Urobilinogen Ql (U) Normal mg/dl Normal [facility] Venous Duplex US - Karin Extre mon 04-19-2025 Venous Duplex US - Karin Extrem Normal [facility] Venous duplex ultrasound rep ortOrdered By: Oracio Payan on 04-19-2025 US Vein [facility] Other Phone: White blood cell (WBC) count Ordered By: Arnulfo Jose on 04-19-2025 WBC (Bld) [#/Vol] 14.0 10*3/uL High 4.4-11.0 [facility] White blood cell countOrdere d By: Nancy Henson on 04-19-2025 White blood cell count 0 SEEN /hpf 0-5 [facility] CBC W/Diff, Automatedon 04-01 Absolute Neut Normal 2.0-7.7 [facility] Comment on above: Result Comment: Canc elled via OM: Order cancelled - Patient discharged Performed By: #### L 100.0100 ####[facility] [address] [place], [address] HCT Normal 40-54 [facility] Comment on above: Result Comment: Canc elled via OM: Order cancelled - Patient discharged Performed By: #### L 100.0100 ####[facility] [address] [place], [address] HGB Normal 13.0-16.5 [facility] Comment on above: Result Comment: Canc elled via OM: Order cancelled - Patient discharged Performed By: #### L 100.0100 ####[facility] [address] [place], [address] MCH Normal 27.0-32.0 [facility] Comment on above: Result Comment: Canc elled via OM: Order cancelled - Patient discharged Performed By: #### L 100.0100 ####[facility] [address] [place], [address] MCHC Normal 32-36 [facility] Comment on above: Result Comment: Canc elled via OM: Order cancelled - Patient discharged Performed By: #### L 100.0100 ####[facility] [address] [place], [address] MCV Normal 80-94 [facility] Comment on above: Result Comment: Canc elled via OM: Order cancelled - Patient discharged Performed By: #### L 100.0100 ####[facility] [address] [place], [address] NEUT% Normal 47-70 [facility] Comment on above: Result Comment: Canc elled via OM: Order cancelled - Patient discharged Performed By: #### L 100.0100 ####[facility] [address] [place], [address] PLT Normal 150-450 [facility] Comment on above: Result Comment: Canc elled via OM: Order cancelled - Patient discharged Performed By: #### L 100.0100 ####[facility] [address] [place], [address] RBC Normal 4.6-6.2 [facility] Comment on above: Result Comment: Canc elled via OM: Order cancelled - Patient discharged Performed By: #### L 100.0100 ####[facility] [address] [place], [address] RDW CV Normal 11.6-14.6 [facility] Comment on above: Result Comment: Canc elled via OM: Order cancelled - Patient discharged Performed By: #### L 100.0100 ####[facility] [address] [place], [address] RDW SD Normal 35.1-43.9 [facility] Comment on above: Result Comment: Canc elled via OM: Order cancelled - Patient discharged Performed By: #### L 100.0100 ####[facility] [address] [place], [address] WBC Normal 4.4-11.0 [facility] Comment on above: Result Comment: Canc elled via OM: Order cancelled - Patient discharged Performed By: #### L 100.0100 ####[facility] [address] [place], [address] Absolute lymphocyte countOrd ered By: Grace Arnold on 04-10-2025 Lymphocytes Auto (Unsp spec) [#/Vol] 1.09 10*3/uL 0.83-4.51 [facility] Absolute neutrophil countOrd ered By: Grace Arnold on 04-10-2025 Neutrophils (Bld) [#/Vol] 9.6 10*3/uL High 2.0-7.7 [facility] Anion gap in Serum or Plasma Ordered By: Grace Arnold on 04-10-2025 Anion gap [Moles/Vol] 13 mmol/L 5-15 [facility] Automated lymphocyte count a s percentage of total leukocytesOrdered By: Grace Arnold on 04-10-2025 Lymphocytes/100 WBC Auto (Unsp spec) 9.4 % Low 19-41 [facility] BUN/creatinine ratioOrdered By: Grace Arnold on 04-10-2025 Urea nitrogen/Creatinine [Mass ratio] 22.8 mg/mg High - [facility] Basic Metabolic Profile (BMP )on 04-10-2025 BUN/CRE 22.8 RATIO High - [facility] Comment on above: Performed By: #### L 500.2500 ####[facility] [address] [place], [address] Calcium [Mass/Vol] 8.5 mg/dL Normal 7.6-11.0 [facility] Comment on above: Performed By: #### L 500.2500 ####[facility] [address] [place], [address] Chloride [Moles/Vol] 101 mmol/L Normal 98-108 [facility] Comment on above: Performed By: #### L 500.2500 ####[facility] [address] [place], [address] CO2 [Moles/Vol] 22.6 mmol/L Normal 21.0-32.0 [facility] Comment on above: Performed By: #### L 500.2500 ####[facility] [address] [place], [address] Creatinine [Mass/Vol] 3.48 mg/dL High 0.70-1.20 [facility] Comment on above: Performed By: #### L 500.2500 ####[facility] [address] [place], [address] ECRCL 15.24 ml/min Low 50-250 [facility] Comment on above: Performed By: #### L 500.2500 ####[facility] [address] [place], [address] GAP 13 Normal 5-15 [facility] Comment on above: Performed By: #### L 500.2500 ####[facility] [address] [place], [address] GFR/1.73 sq M.predicted among non-blacks MDRD (S/P/Bld) [Vol rate/Area] 17 mL/min/{1.73_m2} Low >60 [facility] Comment on above: Result Comment: mL/m in/1.73m2 CKD-EPI Creatinine Equation (2020) Performed By: #### L 500.2500 ####[facility] [address] [place], [address] Glucose [Mass/Vol] 287 mg/dL High 70-99 [facility] Comment on above: Performed By: #### L 500.2500 ####[facility] [address] [place], [address] Potassium [Moles/Vol] 4.2 mmol/L Normal 3.3-5.1 [facility] Comment on above: Performed By: #### L 500.2500 ####[facility] [address] [place], [address] Sodium [Moles/Vol] 137 mmol/L Normal 133-145 [facility] Comment on above: Performed By: #### L 500.2500 ####[facility] [address] [place], [address] Urea nitrogen [Mass/Vol] 79 mg/dL High 4-19 [facility] Comment on above: Performed By: #### L 500.2500 ####[facility] [address] [place], [address] Basophil percentageOrdered B y: Graceanabelle Arnold on 04-10-2025 Basophils/100 WBC (Bld) 0.1 % 0-1 [facility] Bedside Glucoseon 04-10-2025 FINGERSTICK GLU 223 mg/dL High 74-106 [facility] Comment on above: Result Comment: ADITI ESCOBEDO OF PATIENT CARE PER NURSING PROTOCOL Performed By: #### L 501.080 ####[facility] [address] [place], [address] FINGERSTICK GLU 274 mg/dL High 74-106 [facility] Comment on above: Result Comment: ADITI ESCOBEDO OF PATIENT CARE PER NURSING PROTOCOL Performed By: #### L 501.080 ####[facility] [address] [place], [address] CBC W/Diff, Automatedon 06-1 0-2025 Absolute Lymph 1.09 X10 3/uL Normal 0.83-4.51 [facility] Comment on above: Performed By: #### L 100.0100 ####[facility] [address] [place], [address] Absolute Neut 9.6 X10 3/uL High 2.0-7.7 [facility] Comment on above: Performed By: #### L 100.0100 ####[facility] [address] [place], [address] Basophils/100 WBC (Bld) 0.1 % Normal 0-1 [facility] Comment on above: Performed By: #### L 100.0100 ####[facility] [address] [place], [address] Eosinophils/100 WBC (Bld) 0.1 % Normal 0-5 [facility] Comment on above: Performed By: #### L 100.0100 ####[facility] [address] [place], [address] Erythrocyte distribution width (RBC) [Ratio] 13.6 % Normal 11.6-14.6 [facility] Comment on above: Performed By: #### L 100.0100 ####[facility] [address] [place], [address] Hematocrit (Bld) [Volume fraction] 26.0 % Low 40-54 [facility] Comment on above: Performed By: #### L 100.0100 ####[facility] [address] [place], [address] Hemoglobin (Bld) [Mass/Vol] 8.6 g/dL Low 13.0-16.5 [facility] Comment on above: Performed By: #### L 100.0100 ####[facility] [address] [place], [address] IG% 0.800 Normal 0.0-0.9 [facility] Comment on above: Result Comment: IG% - Immature Granulocytes (promyelocytes, myelocytes andmetamyelocytes) > 1% indicates that a LEFT SHIFT is Present. Performed By: #### L 100.0100 ####[facility] [address] [place], [address] Lymphocytes/100 WBC (Bld) 9.4 % Low 19-41 [facility] Comment on above: Performed By: #### L 100.0100 ####[facility] [address] [place], [address] MCH (RBC) [Entitic mass] 30.2 pg Normal 27.0-32.0 [facility] Comment on above: Performed By: #### L 100.0100 ####[facility] [address] [place], [address] MCHC (RBC) [Mass/Vol] 33.1 g/dL Normal 32-36 [facility] Comment on above: Performed By: #### L 100.0100 ####[facility] [address] [place], [address] MCV (RBC) [Entitic vol] 91.2 fL Normal 80-94 [facility] Comment on above: Performed By: #### L 100.0100 ####[facility] [address] [place], [address] Monocytes/100 WBC (Bld) 7.0 % Normal 0-10 [facility] Comment on above: Performed By: #### L 100.0100 ####[facility] [address] [place], [address] Neutrophils/100 WBC (Bld) 82.6 % High 47-70 [facility] Comment on above: Performed By: #### L 100.0100 ####[facility] [address] [place], [address] Nucleated RBC (Bld) [#/Vol] 0 10*3/uL Normal 0-5 [facility] Comment on above: Performed By: #### L 100.0100 ####[facility] [address] [place], [address] Platelet mean volume (Bld) [Entitic vol] 12.4 fL High 6.2-12.0 [facility] Comment on above: Performed By: #### L 100.0100 ####[facility] [address] [place], [address] Platelets (Bld) [#/Vol] 193 10*3/uL Normal 150-450 [facility] Comment on above: Performed By: #### L 100.0100 ####[facility] [address] [place], [address] RBC (Bld) [#/Vol] 2.85 10*6/uL Low 4.6-6.2 [facility] Comment on above: Performed By: #### L 100.0100 ####[facility] [address] [place], [address] RDW SD 45.1 fl High 35.1-43.9 [facility] Comment on above: Performed By: #### L 100.0100 ####[facility] [address] [place], [address] WBC (Bld) [#/Vol] 11.6 10*3/uL High 4.4-11.0 [facility] Comment on above: Performed By: #### L 100.0100 ####[facility] [address] [place], [address] Carbon dioxide, total [Moles /volume] in Central venous bloodOrdered By: Grace Arnold on 04-10-2025 CO2 [Moles/Vol] 22.6 mmol/L 21.0-32.0 [facility] Chloride assayOrdered By: Na na Florentino on 04-10-2025 Chloride [Moles/Vol] 101 mmol/L 98-108 [facility] Discharge Instructionon 04-01 Discharge Instruction Normal [facility] Eosinophil percentageOrdered By: Grace Arnold on 04-10-2025 Eosinophils/100 WBC (Bld) 0.1 % 0-5 [facility] Erythrocyte distribution wid th ratioOrdered By: Grace Arnold on 04-10-2025 Erythrocyte distribution width (RBC) [Ratio] 13.6 % 11.6-14.6 [facility] Erythrocyte distribution wid th standard deviationOrdered By: Grace Arnold on 04-10-2025 Erythrocyte distribution width (RBC) [Ratio] 45.1 fl High 35.1-43.9 [facility] Glomerular filtration rate ( GFR) estimation/1.73 sq m using serum, plasma, or whole bOrdered By: Grace Arnold on 04-10-2025 GFR/1.73 sq M.predicted among non-blacks MDRD (S/P/Bld) [Vol rate/Area] 17 mL/min/{1.73_m2} Low >60 [facility] Comment on above: mL/min/1.73m2 CKD-EP I Creatinine Equation (2020) [facility] deOrdered By: Grace Arnold on 04-10-2025 Glucose [Mass/Vol] 223 mg/dL High 74-106 [facility] Comment on above: MANAGEMENT OF PATIEN T CARE PER NURSING PROTOCOL Hematocrit Auto (Bld) [Volum e fraction]Ordered By: Grace Arnold on 04-10-2025 Hematocrit (Bld) [Volume fraction] 26.0 % Low 40-54 [facility] Hemoglobin measurementOrdere d By: Grace Arnold on 04-10-2025 Hemoglobin (Bld) [Mass/Vol] 8.6 g/dL Low 13.0-16.5 [facility] Immature granulocytes/100 WB C Auto (Bld)Ordered By: Grace Arnold on 04-10-2025 Immature granulocytes/100 WBC (Bld) 0.800 % 0.0-0.9 [facility] Comment on above: IG% - Immature Granu locytes (promyelocytes, myelocytes and metamyelocytes) > 1% indicates that a LEFT SHIFT is Present. MCV (mean corpuscular volume ) determinationOrdered By: Grace Arnold on 04-10-2025 MCV (RBC) [Entitic vol] 91.2 fL 80-94 [facility] Mean corpuscular hemoglobin (MCH) determinationOrdered By: Grace Arnold on 04-10-2025 MCH (RBC) [Entitic mass] 30.2 pg 27.0-32.0 [facility] Mean corpuscular hemoglobin concentration (MCHC) determinationOrdered By: Grace Arnold on 04-10-2025 MCHC (RBC) [Mass/Vol] 33.1 g/dL 32-36 [facility] Mean platelet volume determi nationOrdered By: Grace Arnold on 04-10-2025 Platelet mean volume (Bld) [Entitic vol] 12.4 fL High 6.2-12.0 [facility] Monocyte percentageOrdered B y: Grace Arnold on 04-10-2025 Monocytes/100 WBC (Bld) 7.0 % 0-10 [facility] Neutrophil percentageOrdered By: Grace Arnold on 04-10-2025 Neutrophils/100 WBC (Bld) 82.6 % High 47-70 [facility] Nucleated red blood cell per centageOrdered By: Grace Arnold on 04-10-2025 Nucleated RBC/100 WBC (Bld) [Ratio] 0 % 0-5 [facility] Platelet countOrdered By: Kesha Arnold on 04-10-2025 Platelets (Bld) [#/Vol] 193 10*3/uL 150-450 [facility] Potassium measurement (mass/ volume)Ordered By: Grace Arnold on 04-10-2025 Potassium (Unsp spec) [Mass/Vol] 4.2 mmol/L 3.3-5.1 [facility] RBC Auto (Bld) [#/Vol]Ordere d By: Graceanabelle Arnold on 04-10-2025 RBC (Bld) [#/Vol] 2.85 10*6/uL Low 4.6-6.2 [facility] Serum creatinine measurement (mass/volume)Ordered By: Grace Arnold on 04-10-2025 Creatinine [Mass/Vol] 3.48 mg/dL High 0.70-1.20 [facility] Serum glucose measurement (m ass/volume)Ordered By: Grace Arnold on 04-10-2025 Glucose [Mass/Vol] 287 mg/dL High 70-99 [facility] Serum or plasma calcium nikkie urement (mass/volume)Ordered By: Grace Arnold on 04-10-2025 Calcium [Mass/Vol] 8.5 mg/dL 7.6-11.0 [facility] Serum or plasma urea nitroge n measurement (mass/volume)Ordered By: Grace Arnold on 04-10-2025 Urea nitrogen [Mass/Vol] 79 mg/dL High 4-19 [facility] Sodium levelOrdered By: Grace Arnold on 04-10-2025 Sodium [Moles/Vol] 137 mmol/L 133-145 [facility] White blood cell (WBC) count Ordered By: Grace Arnold on 04-10-2025 WBC (Bld) [#/Vol] 11.6 10*3/uL High 4.4-11.0 [facility] ANCAon 04-09-2025 Atypical pANCA <1:20 Normal Neg:<1:20 [facility] Comment on above: Result Comment: The atypical pANCA pattern has been observed in asignificant percentage of patients with ulcerative colitis,primary sclerosing cholangitis and autoimmune hepatitis.Performed at: - [facility] [address] [id number] Director: Todd Anderson PhD, Phone: [phone] Performed By: #### L 4911.1882 ####[facility] [address] [place], [place], [id number] Cytoplasmic Ab <1:20 Normal Neg:<1:20 [facility] Comment on above: Performed By: #### L 3300.1200 ####[facility] [address] [place], [address] Perinuclear Ab. <1:20 Normal Neg:<1:20 [facility] Comment on above: Result Comment: The presence of positive fluorescence exhibiting P-ANCA orC-ANCA patterns alone is not specific for the diagnosis ofWegener's Granulomatosis (WG) or microscopic polyangiitis.Decisions about treatment should not be based solely onANCA IFA results. The [employer] AN[employer] Consensusrecommends follow up testing of positive sera with both NM-3 and MPO-ANCA enzyme immunoassays. As many as 5% serumsamples are positive only by EIA. Ref. AM J Clin Tiibdv4177;111:507-513. Performed By: #### L 3300.1200 ####[facility] [address] [place], [address] Anti-Glomerular Basement Mem bon 04-09-2025 ANTI-GLOM BM Ab < 0.2 Normal 0.0-0.9 [facility] Comment on above: Result Comment: Perf ormed at: - [facility] [id number] Director: Mignon Taylor MD, Phone: [phone] Performed By: #### L 2384.9082 ####[facility] [address] [place], [address] Basic Metabolic Profile (BMP )on 04-09-2025 BUN/CRE 21.8 RATIO High 10-20 [facility] Comment on above: Performed By: #### L 500.2500 ####[facility] [address] [place], [address] Calcium [Mass/Vol] 8.5 mg/dL Normal 7.6-11.0 [facility] Comment on above: Performed By: #### L 500.2500 ####[facility] [address] [place], [address] Chloride [Moles/Vol] 104 mmol/L Normal 98-108 [facility] Comment on above: Performed By: #### L 500.2500 ####[facility] [address] [place], [address] CO2 [Moles/Vol] 21.6 mmol/L Normal 21.0-32.0 [facility] Comment on above: Performed By: #### L 500.2500 ####[facility] [address] [place], [address] Creatinine [Mass/Vol] 3.42 mg/dL High 0.70-1.20 [facility] Comment on above: Performed By: #### L 500.2500 ####[facility] [address] [place], [address] ECRCL 15.55 ml/min Low 50-250 [facility] Comment on above: Performed By: #### L 500.2500 ####[facility] [address] [place], [address] GAP 15 Normal 5-15 [facility] Comment on above: Performed By: #### L 500.2500 ####[facility] [address] [place], [address] GFR/1.73 sq M.predicted among non-blacks MDRD (S/P/Bld) [Vol rate/Area] 17 mL/min/{1.73_m2} Low >60 [facility] Comment on above: Result Comment: mL/m in/1.73m2 CKD-EPI Creatinine Equation (2020) Performed By: #### L 500.2500 ####[facility] [address] [place], [address] Glucose [Mass/Vol] 146 mg/dL High 70-99 [facility] Comment on above: Performed By: #### L 500.2500 ####[facility] [address] [place], [address] Potassium [Moles/Vol] 3.4 mmol/L Normal 3.3-5.1 [facility] Comment on above: Performed By: #### L 500.2500 ####[facility] [address] [place], [address] Sodium [Moles/Vol] 140 mmol/L Normal 133-145 [facility] Comment on above: Performed By: #### L 500.2500 ####[facility] [address] [place], [address] Urea nitrogen [Mass/Vol] 74 mg/dL High 4-19 [facility] Comment on above: Performed By: #### L 500.2500 ####[facility] [address] [place], [address] Bedside Glucoseon 04-09-2025 FINGERSTICK GLU 423 mg/dL High 74-106 [facility] Comment on above: Result Comment: ADITI GEMENT OF PATIENT CARE PER NURSING PROTOCOL Performed By: #### L 501.080 ####[facility] [address] [place], [address] FINGERSTICK GLU 217 mg/dL High 74-106 [facility] Comment on above: Result Comment: ADITI GEMENT OF PATIENT CARE PER NURSING PROTOCOL Performed By: #### L 501.080 ####[facility] [address] [place], [address] FINGERSTICK GLU 146 mg/dL High 74-106 [facility] Comment on above: Result Comment: ADITI GEMENT OF PATIENT CARE PER NURSING PROTOCOL Performed By: #### L 501.080 ####[facility] [address] [place], [address] FINGERSTICK GLU 141 mg/dL High 74-106 [facility] Comment on above: Result Comment: ADITI GEMENT OF PATIENT CARE PER NURSING PROTOCOL Performed By: #### L 501.080 ####[facility] [address] [place], [address] FINGERSTICK GLU 475 mg/dL Invalid Interpretation Code 74-106 [facility] Comment on above: Result Comment: ADITI GEMENT OF PATIENT CARE PER NURSING PROTOCOL Performed By: #### L 501.080 ####[facility] [address] [place], [address] FINGERSTICK GLU 312 mg/dL High 74-106 [facility] Comment on above: Result Comment: ADITI GEMENT OF PATIENT CARE PER NURSING PROTOCOL Performed By: #### L 501.080 ####[facility] [address] [place], [address] FINGERSTICK GLU 443 mg/dL High 74-106 [facility] Comment on above: Result Comment: ADITI GEMENT OF PATIENT CARE PER NURSING PROTOCOL Performed By: #### L 501.080 ####[facility] [address] [place], [address] CBC W/Diff, Automatedon 06-0 9-2025 Absolute Lymph 1.84 X10 3/uL Normal 0.83-4.51 [facility] Comment on above: Performed By: #### L 100.0100 ####[facility] [address] [place], [address] Absolute Neut 10.1 X10 3/uL High 2.0-7.7 [facility] Comment on above: Performed By: #### L 100.0100 ####[facility] [address] [place], [address] Basophils/100 WBC (Bld) 0.1 % Normal 0-1 [facility] Comment on above: Performed By: #### L 100.0100 ####[facility] [address] [place], [address] Eosinophils/100 WBC (Bld) 0.1 % Normal 0-5 [facility] Comment on above: Performed By: #### L 100.0100 ####[facility] [address] [place], [address] Erythrocyte distribution width (RBC) [Ratio] 14.0 % Normal 11.6-14.6 [facility] Comment on above: Performed By: #### L 100.0100 ####[facility] [address] [place], [address] Hematocrit (Bld) [Volume fraction] 25.5 % Low 40-54 [facility] Comment on above: Performed By: #### L 100.0100 ####[facility] [address] [place], [address] Hemoglobin (Bld) [Mass/Vol] 8.7 g/dL Low 13.0-16.5 [facility] Comment on above: Performed By: #### L 100.0100 ####[facility] [address] [place], [address] IG% 0.700 Normal 0.0-0.9 [facility] Comment on above: Result Comment: IG% - Immature Granulocytes (promyelocytes, myelocytes andmetamyelocytes) > 1% indicates that a LEFT SHIFT is Present. Performed By: #### L 100.0100 ####[facility] [address] [place], [address] Lymphocytes/100 WBC (Bld) 14.1 % Low 19-41 [facility] Comment on above: Performed By: #### L 100.0100 ####[facility] [address] [place], [address] MCH (RBC) [Entitic mass] 30.2 pg Normal 27.0-32.0 [facility] Comment on above: Performed By: #### L 100.0100 ####[facility] [address] [place], [address] MCHC (RBC) [Mass/Vol] 34.1 g/dL Normal 32-36 [facility] Comment on above: Performed By: #### L 100.0100 ####[facility] [address] [place], [address] MCV (RBC) [Entitic vol] 88.5 fL Normal 80-94 [facility] Comment on above: Performed By: #### L 100.0100 ####[facility] [address] [place], [address] Monocytes/100 WBC (Bld) 7.4 % Normal 0-10 [facility] Comment on above: Performed By: #### L 100.0100 ####[facility] [address] [place], [address] Neutrophils/100 WBC (Bld) 77.6 % High 47-70 [facility] Comment on above: Performed By: #### L 100.0100 ####[facility] [address] [place], [address] Nucleated RBC (Bld) [#/Vol] 0 10*3/uL Normal 0-5 [facility] Comment on above: Performed By: #### L 100.0100 ####[facility] [address] [place], [address] Platelet mean volume (Bld) [Entitic vol] 12.0 fL Normal 6.2-12.0 [facility] Comment on above: Performed By: #### L 100.0100 ####[facility] [address] [place], [address] Platelets (Bld) [#/Vol] 191 10*3/uL Normal 150-450 [facility] Comment on above: Performed By: #### L 100.0100 ####[facility] [address] [place], [address] RBC (Bld) [#/Vol] 2.88 10*6/uL Low 4.6-6.2 [facility] Comment on above: Performed By: #### L 100.0100 ####[facility] [address] [place], [address] RDW SD 45.6 fl High 35.1-43.9 [facility] Comment on above: Performed By: #### L 100.0100 ####[facility] [address] [place], [address] WBC (Bld) [#/Vol] 13.0 10*3/uL High 4.4-11.0 [facility] Comment on above: Performed By: #### L 100.0100 ####[facility] [address] [place], [address] Electrocardiogram reportOrde red By: Barbie Martin on 04-09-2025 EKG study [facility] Cardiovascular Services [address] [place] [address] 12 Lead EKG 04/04/25 2112 MR#: [id number] Acct: [id number] Name: ENOC ARMANDO Rep #:[id number] : 1945 79 From: Barbie black MD [...] IS UNCONFIRMED Confirmed by VERONICA URIBE, MINERVA ([id number]), editor managing director BLANCO BOCANEGRA ([id number]) 04/09/2025 7:17:16 AM Referred By: Confirmed By: MINERVA MATRIN MD 04/09/25716 Date _ Barbie Martin MD CC: Dr. Ryley Jeter MD; Dr. Grace Arnold MD ~ Signed [facility] Work Phone: EKG study [facility] Cardiovascular Services [address] [place] [address] 12 Lead EKG 04/04/252111 MR#: [id number] Acct: [id number] Name: ENOC ARMANDO Rep #:[id number] : 1945 79 From: Barbie black MD Attending Dr: Dr. Grace Arnold MD Status: ADM IN Ordering Dr: Grace Arnold MD Date: 04/04/25 Location: [facility] Sex: M C Admitted: 04/03/25 Test [...] by VERONICA URIBE, MINERVA ([id number]), editor managing director BLANCO BOCANEGRA ([id number]) on04/09/2025 7:17:37 AM Referred By: Confirmed By: MINERVA MARTIN MD 04/09/25716 Date _ Barbie Martin MD CC: Dr. Ryley Jeter MD; Dr. Grace Arnold MD ~ Signed [facility] Work Phone: EKG study [facility] Cardiovascular Services [address] [place] [address] 12 Lead EKG 04/04/25 210 MR#: [id number] Acct: [id number] Name: ENOC ARMANDO Rep #:[id number] : 1945 79 From: Barbie black MD Attending Dr: Dr. Grace Arnold MD Status: ADM IN Ordering Dr: Grace Arnold MD Date: 04/04/25 Location: [facility] Sex: M C Admitted: 04/03/25 Test Reason : Blood Pressure : */* mmHG Vent. Rate : 57 BPM Atrial Rate : 57 BPM P-R Int : 200 ms QRS Dur : 100 ms QT Int : 462 ms P-R-T Axes : 62 0 194 degrees QTcB Int : 449 ms Sinus bradycardia Left ventricular hypertrophy with repolarization abnormality ( Iberia product ) Cannot rule out Septal infarct , age undetermined Abnormal ECG No previous ECGs available Confirmed by VERONICA URIBE, MINERVA ([id number]), editor managing director BLANCO BOCANEGRA ([id number]) on04/09/2025 7:17:54 AM Referred By: Confirmed By: MINERVA MARTIN MD 04/09/25 0717 Date _ Barbie Martin MD CC: Dr. Ryley Jeter MD; Dr. Grace Arnold MD ~ Signed [facility] Work Phone: EKG study [facility] Cardiovascular Services [address] [place] [address] 12 Lead EKG 04/03/25 0005 MR#: [id number] Acct: [id number] Name: ENOC ARMANDO Rep #:[id number] : 1945 79 From: Barbie black MD Attending Dr: Dr. Jose Moore MD Status: ADM IN Ordering Dr: Jonh Brandon DO Date: 0 04/03/25 Location: [facility] Sex: M C Admitted: 04/03/25 Test [...] by VERONICA URIBE, MINERVA ([id number]), editor managing director BLANCO BOCANEGRA ([id number]) on04/09/2025 7:03:07 AM Referred By: Confirmed By: MINERVA MARTIN MD 04/09/25 0703 Date _ Barbie Martin MD CC: Dr. Ryley Jeter MD; Dr. Jose Moore MD; Dr. John Brandon DO ~ Signed [facility] Work Phone: EKG study [facility] Cardiovascular Services [address] [place] [address] 12 Lead EKG 04/05/25 1204 MR#: [id number] Acct: [id number] Name: ENOC ARMANDO Rep #:[id number] : 1945 79 From: Barbie black MD Attending Dr: Dr. Jose Moore MD Status: ADM IN Ordering Dr: Grace Arnold MD Date: 04/05/25 Location: [facility] Sex: M C Admitted: 04/03/25 Test [...] COMPARISON REQUIRED DATA IS UNCONFIRMED Confirmed by VEROINCA URIBE, MINERVA ([id number]), editor managing director BLANCO BOCANEGRA ([id number]) on04/09/2025 6:57:50 AM Referred By: FLORENTINO Confirmed By: MINERVA MARTIN MD 04/09/25 0657 Date _ Barbie Martin MD CC: Dr. Ryley Jeter MD; Dr. Grace Arnold MD; Dr. Jose Moore MD ~ Signed [facility] Work Phone: Gram Stainon 04-09-2025 GS Acceptable Specimen? Yes (<25 Epithelial cells per/lpf) Gram Stain 2+ Yeast Like Organisms 2+ Gram positive cocci 1+ Gram positive rods Normal [facility] Comment on above: Performed By: #### M 100.2400, M100.2000 ####[facility] [address] [place], [place], [address] Stool Occult Blood iFOBon STOB Positive Normal [facility] Comment on above: Performed By: #### M 100.7900 ####[facility] [address] [place], [place], [address] Stool gastrointestinal hemog lobin detection by immunologic methodOrdered By: Jose Moore on 04-09-2025 Lower GI hemoglobin IA Ql (Stl) Positive Abnormal [facility] BRCon 04-08-2025 RC Normal Neg [facility] Comment on above: Result Comment: [id number] AP RC TRANSFUSED 04/08/25 1032 Performed By: #### B RC, BTS ####[facility] [address] [place], [place], [address] Basic Metabolic Profile (BMP )on 04-08-2025 BUN/CRE 20.8 RATIO High 10-20 [facility] Comment on above: Performed By: #### L 500.2500 ####[facility] [address] [place], [address] Calcium [Mass/Vol] 8.5 mg/dL Normal 7.6-11.0 [facility] Comment on above: Performed By: #### L 500.2500 ####[facility] [address] [place], [address] Chloride [Moles/Vol] 100 mmol/L Normal 98-108 [facility] Comment on above: Performed By: #### L 500.2500 ####[facility] [address] [place], [address] CO2 [Moles/Vol] 20.3 mmol/L Low 21.0-32.0 [facility] Comment on above: Performed By: #### L 500.2500 ####[facility] [address] [place], [address] Creatinine [Mass/Vol] 2.97 mg/dL High 0.70-1.20 [facility] Comment on above: Performed By: #### L 500.2500 ####[facility] [address] [place], [address] ECRCL 16.83 ml/min Low 50-250 [facility] Comment on above: Performed By: #### L 500.2500 ####[facility] [address] [place], [address] GAP 16 High 5-15 [facility] Comment on above: Performed By: #### L 500.2500 ####[facility] [address] [place], [address] GFR/1.73 sq M.predicted among non-blacks MDRD (S/P/Bld) [Vol rate/Area] 20 mL/min/{1.73_m2} Low >60 [facility] Comment on above: Result Comment: mL/m in/1.73m2 CKD-EPI Creatinine Equation (2020) Performed By: #### L 500.2500 ####[facility] [address] [place], [address] Glucose [Mass/Vol] 395 mg/dL High 70-99 [facility] Comment on above: Performed By: #### L 500.2500 ####[facility] [address] [place], [address] Potassium [Moles/Vol] 4.3 mmol/L Normal 3.3-5.1 [facility] Comment on above: Performed By: #### L 500.2500 ####[facility] [address] [place], [address] Sodium [Moles/Vol] 136 mmol/L Normal 133-145 [facility] Comment on above: Performed By: #### L 500.2500 ####[facility] [address] [place], [address] Urea nitrogen [Mass/Vol] 62 mg/dL High 4-19 [facility] Comment on above: Performed By: #### L 500.2500 ####[facility] [address] [place], [address] Bedside Glucoseon 04-08-2025 FINGERSTICK GLU 415 mg/dL High 74-106 [facility] Comment on above: Result Comment: ADITI GEMENT OF PATIENT CARE PER NURSING PROTOCOL Performed By: #### L 501.080 ####[facility] [address] [place], [address] FINGERSTICK GLU 420 mg/dL High 74-106 [facility] Comment on above: Result Comment: ADITI GEMENT OF PATIENT CARE PER NURSING PROTOCOL Performed By: #### L 501.080 ####[facility] [address] [place], [address] FINGERSTICK GLU 361 mg/dL High 74-106 [facility] Comment on above: Result Comment: ADITI ESCOBEDO OF PATIENT CARE PER NURSING PROTOCOL Performed By: #### L 501.080 ####[facility] [address] [place], [address] CBC W/Diff, Automatedon 06-0 8-2024 Absolute Lymph 0.63 X10 3/uL Low 0.83-4.51 [facility] Comment on above: Performed By: #### L 100.0100 ####[facility] [address] [place], [address] Absolute Neut 7.6 X10 3/uL Normal 2.0-7.7 [facility] Comment on above: Performed By: #### L 100.0100 ####[facility] [address] [place], [address] Basophils/100 WBC (Bld) 0.0 % Normal 0-1 [facility] Comment on above: Performed By: #### L 100.0100 ####[facility] [address] [place], [address] Eosinophils/100 WBC (Bld) 0.0 % Normal 0-5 [facility] Comment on above: Performed By: #### L 100.0100 ####[facility] [address] [place], [address] Erythrocyte distribution width (RBC) [Ratio] 13.5 % Normal 11.6-14.6 [facility] Comment on above: Performed By: #### L 100.0100 ####[facility] [address] [place], [address] Hematocrit (Bld) [Volume fraction] 21.5 % Low 40-54 [facility] Comment on above: Performed By: #### L 100.0100 ####[facility] [address] [place], [address] Hemoglobin (Bld) [Mass/Vol] 6.9 g/dL Low 13.0-16.5 [facility] Comment on above: Performed By: #### L 100.0100 ####[facility] [address] [place], [address] IG% 0.500 Normal 0.0-0.9 [facility] Comment on above: Result Comment: IG% - Immature Granulocytes (promyelocytes, myelocytes andmetamyelocytes) > 1% indicates that a LEFT SHIFT is Present. Performed By: #### L 100.0100 ####[facility] [address] [place], [address] Lymphocytes/100 WBC (Bld) 7.3 % Low 19-41 [facility] Comment on above: Performed By: #### L 100.0100 ####[facility] [address] [place], [address] MCH (RBC) [Entitic mass] 29.5 pg Normal 27.0-32.0 [facility] Comment on above: Performed By: #### L 100.0100 ####[facility] [address] [place], [address] MCHC (RBC) [Mass/Vol] 32.1 g/dL Normal 32-36 [facility] Comment on above: Performed By: #### L 100.0100 ####[facility] [address] [place], [address] MCV (RBC) [Entitic vol] 91.9 fL Normal 80-94 [facility] Comment on above: Performed By: #### L 100.0100 ####[facility] [address] [place], [address] Monocytes/100 WBC (Bld) 4.2 % Normal 0-10 [facility] Comment on above: Performed By: #### L 100.0100 ####[facility] [address] [place], [address] Neutrophils/100 WBC (Bld) 88.0 % High 47-70 [facility] Comment on above: Performed By: #### L 100.0100 ####[facility] [address] [place], [address] Nucleated RBC (Bld) [#/Vol] 0 10*3/uL Normal 0-5 [facility] Comment on above: Performed By: #### L 100.0100 ####[facility] [address] [place], [address] Platelet mean volume (Bld) [Entitic vol] 12.5 fL High 6.2-12.0 [facility] Comment on above: Performed By: #### L 100.0100 ####[facility] [address] [place], [address] Platelets (Bld) [#/Vol] 176 10*3/uL Normal 150-450 [facility] Comment on above: Performed By: #### L 100.0100 ####[facility] [address] [place], [address] RBC (Bld) [#/Vol] 2.34 10*6/uL Low 4.6-6.2 [facility] Comment on above: Performed By: #### L 100.0100 ####[facility] [address] [place], [address] RDW SD 44.2 fl High 35.1-43.9 [facility] Comment on above: Performed By: #### L 100.0100 ####[facility] [address] [place], [address] WBC (Bld) [#/Vol] 8.6 10*3/uL Normal 4.4-11.0 [facility] Comment on above: Performed By: #### L 100.0100 ####[facility] [address] [place], [address] Culture, Blood (WB)on 2024 CUB No growth in 5 days. Normal [facility] Comment on above: Performed By: #### L 503.6005, M200.1000 ####[facility] [address] [place], [address] Glucoseon 04-08-2025 Glucose [Mass/Vol] 528 mg/dL Invalid Interpretation Code 70-99 [facility] Comment on above: Result Comment: Crit ical Result(s) Called at 2220: by:??NBURNS TO EAFFOLTERResults read back by same. Performed By: #### L 501.0100 ####[facility] [address] [place], [address] Respiratory Cultureon 2024 RESPC Mixed normal respiratory kyler. No Streptococcus pneumoniae, beta-hemolytic Streptococcus or Staphylococcus aureus isolated. [facility] Comment on above: Performed By: #### M 100.2400, M100.2000 ####[facility] [address] [place], [address] Type AND Screenon 04-08-2025 ABO and Rh group Nom (Bld) Blood group A Rh(D) positive [facility] Comment on above: Order Comment: CMV N EG? NNumber of units to transfuse: 1Reason for Ordering Blood: AcuteAre the blood/blood products to be transfused? YIs the patient having/had surgery? Nany Hazel Performed By: #### B HOUSTON, BTS ####[facility] [address] [place], [address] Ab SCREEN GEL Negative [facility] Comment on above: Order Comment: CMV N EG? NNumber of units to transfuse: 1Reason for Ordering Blood: AcuteAre the blood/blood products to be transfused? YIs the patient having/had surgery? Nany Hazel Performed By: #### B RC, BTS ####[facility] [address] [place], [address] Basic Metabolic Profile (BMP )on 04-07-2025 BUN/CRE 22.1 RATIO High 10-20 [facility] Comment on above: Performed By: #### L 500.2500 ####[facility] [address] [place], [address] Calcium [Mass/Vol] 8.2 mg/dL Normal 7.6-11.0 [facility] Comment on above: Performed By: #### L 500.2500 ####[facility] [address] [place], [address] Chloride [Moles/Vol] 99 mmol/L Normal 98-108 [facility] Comment on above: Performed By: #### L 500.2500 ####[facility] [address] [place], [address] CO2 [Moles/Vol] 21.3 mmol/L Normal 21.0-32.0 [facility] Comment on above: Performed By: #### L 500.2500 ####[facility] [address] [place], [address] Creatinine [Mass/Vol] 3.61 mg/dL High 0.70-1.20 [facility] Comment on above: Performed By: #### L 500.2500 ####[facility] [address] [place], [address] ECRCL 14.50 ml/min Low 50-250 [facility] Comment on above: Performed By: #### L 500.2500 ####[facility] [address] [place], [address] GAP 16 High 5-15 [facility] Comment on above: Performed By: #### L 500.2500 ####[facility] [address] [place], [address] GFR/1.73 sq M.predicted among non-blacks MDRD (S/P/Bld) [Vol rate/Area] 16 mL/min/{1.73_m2} Low >60 [facility] Comment on above: Result Comment: mL/m in/1.73m2 CKD-EPI Creatinine Equation (2020) Performed By: #### L 500.2500 ####[facility] [address] [place], [address] Glucose [Mass/Vol] 423 mg/dL High 70-99 [facility] Comment on above: Performed By: #### L 500.2500 ####[facility] [address] [place], [address] Potassium [Moles/Vol] 4.3 mmol/L Normal 3.3-5.1 [facility] Comment on above: Performed By: #### L 500.2500 ####[facility] [address] [place], [address] Sodium [Moles/Vol] 137 mmol/L Normal 133-145 [facility] Comment on above: Performed By: #### L 500.2500 ####[facility] [address] [place], [address] Urea nitrogen [Mass/Vol] 80 mg/dL High 4-19 [facility] Comment on above: Performed By: #### L 500.2500 ####[facility] [address] [place], [address] Bedside Glucoseon 04-07-2025 FINGERSTICK GLU 402 mg/dL High 74-106 [facility] Comment on above: Result Comment: ADITI GEMENT OF PATIENT CARE PER NURSING PROTOCOL Performed By: #### L 501.080 ####[facility] [address] [place], [address] FINGERSTICK GLU 330 mg/dL High 74-106 [facility] Comment on above: Result Comment: ADITI GEMENT OF PATIENT CARE PER NURSING PROTOCOL Performed By: #### L 501.080 ####[facility] [address] [place], [address] FINGERSTICK GLU 333 mg/dL High 74-106 [facility] Comment on above: Result Comment: ADITI GEMENT OF PATIENT CARE PER NURSING PROTOCOL Performed By: #### L 501.080 ####[facility] [address] [place], [address] FINGERSTICK GLU 392 mg/dL High 74-106 [facility] Comment on above: Result Comment: ADITI GEMENT OF PATIENT CARE PER NURSING PROTOCOL Performed By: #### L 501.080 ####[facility] [address] [place], [address] FINGERSTICK GLU 280 mg/dL High 74-106 [facility] Comment on above: Result Comment: ADITI GEMENT OF PATIENT CARE PER NURSING PROTOCOL Performed By: #### L 501.080 ####[facility] [address] [place], [address] CBC W/Diff, Automatedon 06-0 7-2024 Absolute Lymph 1.30 X10 3/uL Normal 0.83-4.51 [facility] Comment on above: Performed By: #### L 100.0100 ####[facility] [address] [place], [address] Absolute Neut 8.2 X10 3/uL High 2.0-7.7 [facility] Comment on above: Performed By: #### L 100.0100 ####[facility] [address] [place], [address] Basophils/100 WBC (Bld) 0.0 % Normal 0-1 [facility] Comment on above: Performed By: #### L 100.0100 ####[facility] [address] [place], [address] Eosinophils/100 WBC (Bld) 0.1 % Normal 0-5 [facility] Comment on above: Performed By: #### L 100.0100 ####[facility] [address] [place], [address] Erythrocyte distribution width (RBC) [Ratio] 13.7 % Normal 11.6-14.6 [facility] Comment on above: Performed By: #### L 100.0100 ####[facility] [address] [place], [address] Hematocrit (Bld) [Volume fraction] 23.1 % Low 40-54 [facility] Comment on above: Performed By: #### L 100.0100 ####[facility] [address] [place], [address] Hemoglobin (Bld) [Mass/Vol] 7.7 g/dL Low 13.0-16.5 [facility] Comment on above: Performed By: #### L 100.0100 ####[facility] [address] [place], [address] IG% 0.300 Normal 0.0-0.9 [facility] Comment on above: Result Comment: IG% - Immature Granulocytes (promyelocytes, myelocytes andmetamyelocytes) > 1% indicates that a LEFT SHIFT is Present. Performed By: #### L 100.0100 ####[facility] [address] [place], [address] Lymphocytes/100 WBC (Bld) 12.6 % Low 19-41 [facility] Comment on above: Performed By: #### L 100.0100 ####[facility] [address] [place], [address] MCH (RBC) [Entitic mass] 30.8 pg Normal 27.0-32.0 [facility] Comment on above: Performed By: #### L 100.0100 ####[facility] [address] [place], [address] MCHC (RBC) [Mass/Vol] 33.3 g/dL Normal 32-36 [facility] Comment on above: Performed By: #### L 100.0100 ####[facility] [address] [place], [address] MCV (RBC) [Entitic vol] 92.4 fL Normal 80-94 [facility] Comment on above: Performed By: #### L 100.0100 ####[facility] [address] [place], [address] Monocytes/100 WBC (Bld) 8.0 % Normal 0-10 [facility] Comment on above: Performed By: #### L 100.0100 ####[facility] [address] [place], [address] Neutrophils/100 WBC (Bld) 79.0 % High 47-70 [facility] Comment on above: Performed By: #### L 100.0100 ####[facility] [facility] [address] [place], [address] Nucleated RBC (Bld) [#/Vol] 0 10*3/uL Normal 0-5 [facility] Comment on above: Performed By: #### L 100.0100 ####[facility] [address] [place], [address] Platelet mean volume (Bld) [Entitic vol] 12.3 fL High 6.2-12.0 [facility] Comment on above: Performed By: #### L 100.0100 ####[facility] [address] [place], [address] Platelets (Bld) [#/Vol] 191 10*3/uL Normal 150-450 [facility] Comment on above: Performed By: #### L 100.0100 ####[facility] [address] [place], [address] RBC (Bld) [#/Vol] 2.50 10*6/uL Low 4.6-6.2 [facility] Comment on above: Performed By: #### L 100.0100 ####[facility] [address] [place], [address] RDW SD 46.1 fl High 35.1-43.9 [facility] Comment on above: Performed By: #### L 100.0100 ####[facility] [address] [place], [address] WBC (Bld) [#/Vol] 10.4 10*3/uL Normal 4.4-11.0 [facility] Comment on above: Performed By: #### L 100.0100 ####[facility] [address] [place], [address] Ferritinon 04-07-2025 Ferritin [Mass/Vol] 69 ng/mL Normal 37-417 [facility] Comment on above: Performed By: #### L 503.6030, L503.6550 ####[facility] [address] [place], [address] Gram stainOrdered By: Dyana Hwang on 04-07-2025 Microscopic observation Gram stain Nom (Unsp spec) [facility] Iron measurement (mass/mass) Ordered By: Jose Moore on 04-07-2025 Iron (Unsp spec) [Mass/Mass] 27 ug/dL Low 65-175 [facility] Iron+Iron Binding Capacityon 04-07-2025 Iron [Mass/Vol] 27 ug/dL Low 65-175 [facility] Comment on above: Performed By: #### L 503.6030, L503.6550 ####[facility] [address] [place], [address] IRON SATURATION 10.0 Normal 9-55 [facility] Comment on above: Performed By: #### L 503.6030, L503.6550 ####[facility] [address] [place], [address] TIBC 270 ug/dL Normal 250-450 [facility] Comment on above: Performed By: #### L 503.6030, L503.6550 ####[facility] [address] [place], [address] UIBC 243 ug/dL Normal 228-428 [facility] Comment on above: Performed By: #### L 503.6030, L503.6550 ####[facility] [address] [place], [address] Microbial respiratory cultur eOrdered By: Dyana Hwang on 04-07-2025 Microorganism identified Cx Nom (Unsp spec) or Staphylococcus aureus isolated. [facility] No Panel InformationOrdered By: Jose Moore on 04-07-2025 Unsaturated Iron Binding Capacity 243 ug/dL 228-428 [facility] 243 ug/dL 228-428 [facility] Serum or plasma ferritin heriberto surement (mass/volume)Ordered By: Jose Moore on 04-07-2025 Ferritin [Mass/Vol] 69 ng/mL 37-417 [facility] Serum or plasma iron saturat ion measurement (mass fraction)Ordered By: Jose Moore on 04-07-2025 Iron saturation [Mass fraction] 10.0 % 9-55 [facility] Basic Metabolic Profile (BMP )on 04-06-2025 BUN/CRE 21.8 RATIO High 10-20 [facility] Comment on above: Performed By: #### L 500.2500 ####[facility] [address] [place], [address] Calcium [Mass/Vol] 8.3 mg/dL Normal 7.6-11.0 [facility] Comment on above: Performed By: #### L 500.2500 ####[facility] [address] [place], [address] Chloride [Moles/Vol] 100 mmol/L Normal 98-108 [facility] Comment on above: Performed By: #### L 500.2500 ####[facility] [address] [place], [address] CO2 [Moles/Vol] 21.0 mmol/L Normal 21.0-32.0 [facility] Comment on above: Performed By: #### L 500.2500 ####[facility] [address] [place], [address] Creatinine [Mass/Vol] 4.73 mg/dL High 0.70-1.20 [facility] Comment on above: Performed By: #### L 500.2500 ####[facility] [address] [place], [address] ECRCL 11.24 ml/min Low 50-250 [facility] Comment on above: Performed By: #### L 500.2500 ####[facility] [address] [place], [address] GAP 18 High 5-15 [facility] Comment on above: Performed By: #### L 500.2500 ####[facility] [address] [place], [address] GFR/1.73 sq M.predicted among non-blacks MDRD (S/P/Bld) [Vol rate/Area] 12 mL/min/{1.73_m2} Low >60 [facility] Comment on above: Result Comment: mL/m in/1.73m2 CKD-EPI Creatinine Equation (2020) Performed By: #### L 500.2500 ####[facility] [address] [place], [address] Glucose [Mass/Vol] 233 mg/dL High 70-99 [facility] Comment on above: Performed By: #### L 500.2500 ####[facility] [address] [place], [address] Potassium [Moles/Vol] 4.2 mmol/L Normal 3.3-5.1 [facility] Comment on above: Performed By: #### L 500.2500 ####[facility] [address] [place], [address] Sodium [Moles/Vol] 139 mmol/L Normal 133-145 [facility] Comment on above: Performed By: #### L 500.2500 ####[facility] [address] [place], [address] Urea nitrogen [Mass/Vol] 103 mg/dL Invalid Interpretation Code 4-19 [facility] Comment on above: Result Comment: Crit ical Result(s) Called at: by: 04/06/2025-09:27 Neal to Andressa Khanna.??Results read back by same. Performed By: #### L 500.2500 ####[facility] [address] [place], [address] Bedside Glucoseon 04-06-2025 FINGERSTICK GLU 269 mg/dL High 74-106 [facility] Comment on above: Result Comment: ADITI GEMENT OF PATIENT CARE PER NURSING PROTOCOL Performed By: #### L 501.080 ####[facility] [address] [place], [address] FINGERSTICK GLU 225 mg/dL High 74-106 [facility] Comment on above: Result Comment: ADITI GEMENT OF PATIENT CARE PER NURSING PROTOCOL Performed By: #### L 501.080 ####[facility] [address] [place], [address] FINGERSTICK GLU 281 mg/dL High 74-106 [facility] Comment on above: Result Comment: ADITI GEMENT OF PATIENT CARE PER NURSING PROTOCOL Performed By: #### L 501.080 ####[facility] [address] [place], [address] CBC W/Diff, Automatedon 06-0 6-2025 Absolute Lymph 1.34 X10 3/uL Normal 0.83-4.51 [facility] Comment on above: Performed By: #### L 100.0100 ####[facility] [address] [place], [address] Absolute Neut 12.3 X10 3/uL High 2.0-7.7 [facility] Comment on above: Performed By: #### L 100.0100 ####[facility] [address] [place], [address] Basophils/100 WBC (Bld) 0.1 % Normal 0-1 [facility] Comment on above: Performed By: #### L 100.0100 ####[facility] [address] [place], [address] Eosinophils/100 WBC (Bld) 0.0 % Normal 0-5 [facility] Comment on above: Performed By: #### L 100.0100 ####[facility] [address] [place], [address] Erythrocyte distribution width (RBC) [Ratio] 13.8 % Normal 11.6-14.6 [facility] Comment on above: Performed By: #### L 100.0100 ####[facility] [address] [place], [address] Hematocrit (Bld) [Volume fraction] 23.6 % Low 40-54 [facility] Comment on above: Performed By: #### L 100.0100 ####[facility] [address] [place], [address] Hemoglobin (Bld) [Mass/Vol] 7.9 g/dL Low 13.0-16.5 [facility] Comment on above: Performed By: #### L 100.0100 ####[facility] [address] [place], [address] IG% 0.500 Normal 0.0-0.9 [facility] Comment on above: Result Comment: IG% - Immature Granulocytes (promyelocytes, myelocytes andmetamyelocytes) > 1% indicates that a LEFT SHIFT is Present. Performed By: #### L 100.0100 ####[facility] [address] [place], [address] Lymphocytes/100 WBC (Bld) 9.1 % Low 19-41 [facility] Comment on above: Performed By: #### L 100.0100 ####[facility] [address] [place], [address] MCH (RBC) [Entitic mass] 30.7 pg Normal 27.0-32.0 [facility] Comment on above: Performed By: #### L 100.0100 ####[facility] [address] [place], [address] MCHC (RBC) [Mass/Vol] 33.5 g/dL Normal 32-36 [facility] Comment on above: Performed By: #### L 100.0100 ####[facility] [address] [place], [address] MCV (RBC) [Entitic vol] 91.8 fL Normal 80-94 [facility] Comment on above: Performed By: #### L 100.0100 ####[facility] [address] [place], [address] Monocytes/100 WBC (Bld) 7.0 % Normal 0-10 [facility] Comment on above: Performed By: #### L 100.0100 ####[facility] [address] [place], [address] Neutrophils/100 WBC (Bld) 83.3 % High 47-70 [facility] Comment on above: Performed By: #### L 100.0100 ####[facility] [address] [place], [address] Nucleated RBC (Bld) [#/Vol] 0 10*3/uL Normal 0-5 [facility] Comment on above: Performed By: #### L 100.0100 ####[facility] [address] [place], [address] Platelet mean volume (Bld) [Entitic vol] 11.9 fL Normal 6.2-12.0 [facility] Comment on above: Performed By: #### L 100.0100 ####[facility] [address] [place], [address] Platelets (Bld) [#/Vol] 222 10*3/uL Normal 150-450 [facility] Comment on above: Performed By: #### L 100.0100 ####[facility] [address] [place], [address] RBC (Bld) [#/Vol] 2.57 10*6/uL Low 4.6-6.2 [facility] Comment on above: Performed By: #### L 100.0100 ####[facility] [address] [place], [address] RDW SD 46.2 fl High 35.1-43.9 [facility] Comment on above: Performed By: #### L 100.0100 ####[facility] [address] [place], [address] WBC (Bld) [#/Vol] 14.8 10*3/uL High 4.4-11.0 [facility] Comment on above: Performed By: #### L 100.0100 ####[facility] [address] [place], [address] Magnesiumon 04-06-2025 Magnesium [Mass/Vol] 2.8 mg/dL High 1.5-2.2 [facility] Comment on above: Performed By: #### L 501.5200, L501.2300 ####[facility] [address] [place], [address] Magnesium measurement (mass/ volume)Ordered By: Barbie Martin on 04-06-2025 Magnesium (Unsp spec) [Mass/Vol] 2.8 mg/dL High 1.5-2.2 [facility] Phosphoruson 04-06-2025 Phosphate [Mass/Vol] 7.1 mg/dL High 2.7-4.5 [facility] Comment on above: Performed By: #### L 501.5200, L501.2300 ####[facility] [address] [place], [place], [address] Serum classic neutrophil cyt oplasmic antibody assay (units/volume)Ordered By: Denisha Thompson on 04-06-2025 Neutrophil cytoplasmic Ab.classic Qn (S) <1:20 titer Neg:<1:20 [facility] Serum glomerular basement me mbrane antibody assay (units/volume)Ordered By: Denisha Thompson on 04-06-2025 Glomerular basement membrane Ab Qn (S) < 0.2 units 0.0-0.9 [facility] Comment on above: Performed at: [address] [id number] Director: Mignon Taylor MD, Phone: [phone] Serum perinuclear neutrophil cytoplasmic antibody titer by immunofluorescenceOrdered By: Denisha Thompson on 04-06-2025 Neutrophil cytoplasmic Ab.perinuclear IF (S) [Titer] <1:20 titer Neg:<1:20 [facility] Comment on above: The presence of posi tive fluorescence exhibiting P-ANCA orC-ANCA patterns alone is not specific for the diagnosis ofWegener's Granulomatosis (WG) or microscopic polyangiitis.Decisions about treatment should not be based solely onANCA IFA results. The [employer] Consensusrecommends follow up testing of positive sera with both NM-3 and MPO-ANCA enzyme immunoassays. As many as 5% serumsamples are positive only by EIA. Ref. AM J Clin Covwea1379;111:507-513. 12 Lead EKGon 04-05-2025 12 Lead EKG Normal [facility] Basic Metabolic Profile (BMP )on 04-05-2025 BUN/CRE 20.8 RATIO High 10-20 [facility] Comment on above: Performed By: #### L 500.2500 ####[facility] [address] [place], [address] Calcium [Mass/Vol] 8.9 mg/dL Normal 7.6-11.0 [facility] Comment on above: Performed By: #### L 500.2500 ####[facility] [address] [place], [address] Chloride [Moles/Vol] 102 mmol/L Normal 98-108 [facility] Comment on above: Performed By: #### L 500.2500 ####[facility] [address] [place], [address] CO2 [Moles/Vol] 15.6 mmol/L Low 21.0-32.0 [facility] Comment on above: Performed By: #### L 500.2500 ####[facility] [address] [place], [address] Creatinine [Mass/Vol] 4.77 mg/dL High 0.70-1.20 [facility] Comment on above: Performed By: #### L 500.2500 ####[facility] [address] [place], [address] ECRCL 10.67 ml/min Low 50-250 [facility] Comment on above: Performed By: #### L 500.2500 ####[facility] [address] [place], [address] GAP 19 High 5-15 [facility] Comment on above: Performed By: #### L 500.2500 ####[facility] [address] [place], [address] GFR/1.73 sq M.predicted among non-blacks MDRD (S/P/Bld) [Vol rate/Area] 12 mL/min/{1.73_m2} Low >60 [facility] Comment on above: Result Comment: mL/m in/1.73m2 CKD-EPI Creatinine Equation (2020) Performed By: #### L 500.2500 ####[facility] [address] [place], [address] Glucose [Mass/Vol] 205 mg/dL High 70-99 [facility] Comment on above: Performed By: #### L 500.2500 ####[facility] [address] [place], [address] Potassium [Moles/Vol] 5.7 mmol/L High 3.3-5.1 [facility] Comment on above: Result Comment: Hemo lysis present, Results??could be affected.?? Performed By: #### L 500.2500 ####[facility] [address] [place], [address] Sodium [Moles/Vol] 137 mmol/L Normal 133-145 [facility] Comment on above: Performed By: #### L 500.2500 ####[facility] [address] [place], [address] Urea nitrogen [Mass/Vol] 99 mg/dL High 4-19 [facility] Comment on above: Performed By: #### L 500.2500 ####[facility] [address] [place], [address] BUN/CRE 20.5 RATIO High 10-20 [facility] Comment on above: Performed By: #### L 500.2500 ####[facility] [address] [place], [address] Calcium [Mass/Vol] 8.1 mg/dL Normal 7.6-11.0 [facility] Comment on above: Performed By: #### L 500.2500 ####[facility] [address] [place], [address] Chloride [Moles/Vol] 102 mmol/L Normal 98-108 [facility] Comment on above: Performed By: #### L 500.2500 ####[facility] [address] [place], [address] CO2 [Moles/Vol] 15.8 mmol/L Low 21.0-32.0 [facility] Comment on above: Performed By: #### L 500.2500 ####[facility] [address] [place], [address] Creatinine [Mass/Vol] 4.68 mg/dL High 0.70-1.20 [facility] Comment on above: Performed By: #### L 500.2500 ####[facility] [address] [place], [address] ECRCL 10.87 ml/min Low 50-250 [facility] Comment on above: Performed By: #### L 500.2500 ####[facility] [address] [place], [address] GAP 18 High 5-15 [facility] Comment on above: Performed By: #### L 500.2500 ####[facility] [address] [place], [address] GFR/1.73 sq M.predicted among non-blacks MDRD (S/P/Bld) [Vol rate/Area] 12 mL/min/{1.73_m2} Low >60 [facility] Comment on above: Result Comment: mL/m in/1.73m2 CKD-EPI Creatinine Equation (2020) Performed By: #### L 500.2500 ####[facility] [address] [place], [address] Glucose [Mass/Vol] 223 mg/dL High 70-99 [facility] Comment on above: Performed By: #### L 500.2500 ####[facility] [address] [place], [address] Potassium [Moles/Vol] 6.3 mmol/L Invalid Interpretation Code 3.3-5.1 [facility] Comment on above: Result Comment: Crit ical Result(s) Called to: STANTON PARRA (U) by:RONEN??Results read back by same. Performed By: #### L 500.2500 ####[facility] [address] [place], [address] Sodium [Moles/Vol] 136 mmol/L Normal 133-145 [facility] Comment on above: Performed By: #### L 500.2500 ####[facility] [address] [place], [address] Urea nitrogen [Mass/Vol] 96 mg/dL High 4-19 [facility] Comment on above: Performed By: #### L 500.2500 ####[facility] [address] [place], [address] Bedside Glucoseon 04-05-2025 FINGERSTICK GLU 282 mg/dL High 74-106 [facility] Comment on above: Result Comment: ADITI GEMENT OF PATIENT CARE PER NURSING PROTOCOL Performed By: #### L 501.080 ####[facility] [address] [place], [address] FINGERSTICK GLU 165 mg/dL High 74-106 [facility] Comment on above: Result Comment: ADITI GEMENT OF PATIENT CARE PER NURSING PROTOCOL Performed By: #### L 501.080 ####[facility] [address] [place], [address] FINGERSTICK GLU 239 mg/dL High 74-106 [facility] Comment on above: Result Comment: ADITI GEMENT OF PATIENT CARE PER NURSING PROTOCOL Performed By: #### L 501.080 ####[facility] [address] [place], [address] FINGERSTICK GLU 226 mg/dL High 74-106 [facility] Comment on above: Result Comment: ADITI GEMENT OF PATIENT CARE PER NURSING PROTOCOL Performed By: #### L 501.080 ####[facility] [address] [place], [address] FINGERSTICK GLU 263 mg/dL High 74-106 [facility] Comment on above: Result Comment: ADITI GEMENT OF PATIENT CARE PER NURSING PROTOCOL Performed By: #### L 501.080 ####[facility] [address] [place], [address] FINGERSTICK GLU 253 mg/dL High 74-106 [facility] Comment on above: Result Comment: ADITI GEMENT OF PATIENT CARE PER NURSING PROTOCOL Performed By: #### L 501.080 ####[facility] [address] [place], [address] Bilirubin Test strip Ql (U)O rdered By: Denisha Thompson on 04-05-2025 Bilirubin Ql (U) 1 mg/dL High Negative [facility] Comment on above: COLOR OF URINE MAY A FFECT DIPSTICK RESULTS. Blood manual differential co mment interpretation (narrative result)Ordered By: Grace Arnold on 04-05-2025 Manual differential comment Mumtaz (Bld) [Interp] SCANNED [facility] CBC W/Diff, Automatedon SMEAR COMMENT SCANNED Normal [facility] Comment on above: Performed By: #### L 100.0100 ####[facility] [address] [place], [address] CXR for Line Placementon CXR for Line Placement Normal [facility] Consultation - Surgicalon Consultation - Surgical Normal [facility] Ketones Test strip Ql (U)Ord ered By: Denisha Thompson on 04-05-2025 Ketones Ql (U) Negative Negative [facility] L499.0042on 04-05-2025 Trop T High Sen 2263 ng/L Invalid Interpretation Code <=22 [facility] Comment on above: Result Comment: Crit ical Result(s) Called at: 0040 by: BJ??Results read back by same. Performed By: #### L 499.0042 ####[facility] [address] [facility] [address] [place], [place], [address] L499.0043on 04-05-2025 Trop T High Sen 2425 ng/L Invalid Interpretation Code <=22 [facility] Comment on above: Result Comment: Crit ical Result(s) Called at: 0336 by:??DASIA ALICIA Results read back by same. Performed By: #### L 499.0043 ####[facility] [address] [facility] [address] [place], [place], [id number] Microscopic analysis of urin e for red blood cells (RBC)Ordered By: Denisha Thompson on 04-05-2025 Microscopic analysis of urine for red blood cells (RBC) > 100 SEEN /hpf 0-5 [facility] Mucus LM Ql (Urine sed)Order ed By: Denisha Thompson on 04-05-2025 Mucus Ql (Urine sed) 0 SEEN /hpf [facility] Nitrite Test strip Ql (U)Ord ered By: Denisha Thompson on 04-05-2025 Nitrite Ql (U) Negative Negative [facility] Operative Reporton Operative Report Normal [facility] Protein Test strip Ql (U)Ord ered By: Denisha Thompson on 04-05-2025 Protein Ql (U) 100 mg/dl High Negative [facility] Squamous epithelial cells de tection in urine sediment by light microscopyOrdered By: Denisha Thompson on 04-05-2025 Epithelial cells.squamous LM Ql (Urine sed) 0 SEEN /hpf 0-5 [facility] Troponin T.cardiac [Mass/vol ume] in Serum or Plasma by High sensitivity methodOrdered By: Breezy Campbell on 04-05-2025 Troponin T.cardiac High sensitivity method [Mass/Vol] 2425 ng/L High <22 [facility] Comment on above: Critical Result(s) C alled at: 0336 by: DASIA MOYA TO ANA ALICIA Results read back by same. Urinalysis, Completeon 04-05 WBC 5-10 SEEN Normal 0-5 [facility] Comment on above: Order Comment: HATTIE TER SPECIMEN Performed By: #### L 400.0001 ####[facility] [address] [place], [address] RBC > 100 SEEN Normal 0-5 [facility] Comment on above: Order Comment: HATTIE TER SPECIMEN Performed By: #### L 400.0001 ####[facility] [address] [place], [address] BACTERIA 0 SEEN Normal None Seen [facility] Comment on above: Order Comment: HATTIE TER SPECIMEN Performed By: #### L 400.0001 ####[facility] [address] [place], [address] EPI,SQUAMOUS 0 SEEN Normal 0-5 [facility] Comment on above: Order Comment: HATTIE TER SPECIMEN Performed By: #### L 400.0001 ####[facility] [address] [place], [address] Mucus Ql (Urine sed) 0 SEEN Normal [facility] Comment on above: Order Comment: HATTIE TER SPECIMEN Performed By: #### L 400.0001 ####[facility] [address] [place], [address] Urine clarityOrdered By: Zelalem Thompson on 04-05-2025 Clarity (U) Sl. Cloudy Clear [facility] Urine color determinationOrd ered By: Denisha Thompson on 04-05-2025 Color (U) Yellow Yellow [facility] Urine glucose detectionOrder ed By: Denisha Thompson on 04-05-2025 Glucose Ql (U) Normal mg/dl Normal [facility] Urine leukocyte esterase det ection by dipstickOrdered By: Denisha Thompson on 04-05-2025 Leukocyte esterase Test strip Ql (U) 500 /ul High Negative [facility] Urine pHOrdered By: Almita Thompson on 04-05-2025 pH (U) 5.0 [pH] 5.0 - 8.0 [facility] Urine sediment bacteria coun t by microscopy (number/high power field)Ordered By: Denisha Thompson on 04-05-2025 Bacteria LM.HPF (Urine sed) [#/Area] 0 /[HPF] None Seen [facility] Urine specific gravity measu rementOrdered By: Denisha Thompson on 04-05-2025 Specific gravity (U) [Rel density] 1.020 1.002-1.030 [facility] Urine urobilinogen measureme ntOrdered By: Denisha Thompson on 04-05-2025 Urobilinogen Ql (U) Normal mg/dl Normal [facility] White blood cell countOrdere d By: Denisha Thompson on 04-05-2025 White blood cell count 5-10 SEEN /hpf 0-5 [facility] 12 Lead EKGon 04-04-2025 12 Lead EKG Normal [facility] 12 Lead EKG Normal [facility] 12 Lead EKG Normal [facility] Basic Metabolic Profile (BMP )on 04-04-2025 BUN Normal 4-19 [facility] Comment on above: Result Comment: CANC EL PER DEVEROAUX Performed By: #### L 500.2500 ####[facility] [address] [place], [place], [id number] BUN/CRE Normal 10-20 [facility] Comment on above: Result Comment: CANC EL PER DEVEROAUX Performed By: #### L 500.2500 ####[facility] [address] [place], [address] Calcium Normal 7.6-11.0 [facility] Comment on above: Result Comment: CANC EL PER DEVEROAUX Performed By: #### L 500.2500 ####[facility] [address] [place], [address] CL Normal 98-108 [facility] Comment on above: Result Comment: CANC EL PER DEVEROAUX Performed By: #### L 500.2500 ####[facility] [address] [place], [address] CO2 Normal 21.0-32.0 [facility] Comment on above: Result Comment: CANC EL PER DEVEROAUX Performed By: #### L 500.2500 ####[facility] [address] [place], [address] CREAT,SERUM Normal 0.70-1.20 [facility] Comment on above: Result Comment: CANC EL PER DEVEROAUX Performed By: #### L 500.2500 ####[facility] [address] [place], [address] eGFR Normal >60 [facility] Comment on above: Result Comment: CANC EL PER DEVEROAUX Performed By: #### L 500.2500 ####[facility] [address] [place], [address] GAP Normal 5-15 [facility] Comment on above: Result Comment: CANC EL PER DEVEROAUX Performed By: #### L 500.2500 ####[facility] [address] [place], [address] GLU Normal 70-99 [facility] Comment on above: Result Comment: CANC EL PER DEVEROAUX Performed By: #### L 500.2500 ####[facility] [address] [place], [address] Potassium Normal 3.3-5.1 [facility] Comment on above: Result Comment: CANC EL PER DEVEROAUX Performed By: #### L 500.2500 ####[facility] [address] [place], [address] Basic Metabolic Profile (BMP) Normal 133-145 [facility] Comment on above: Result Comment: CANC EL PER DEVEROAUX Performed By: #### L 500.2500 ####[facility] [address] [place], [address] BUN/CRE 20.5 RATIO High 10-20 [facility] Comment on above: Performed By: #### L 500.2500 ####[facility] [address] [place], [address] Calcium [Mass/Vol] 8.6 mg/dL Normal 7.6-11.0 [facility] Comment on above: Performed By: #### L 500.2500 ####[facility] [address] [place], [address] Chloride [Moles/Vol] 101 mmol/L Normal 98-108 [facility] Comment on above: Performed By: #### L 500.2500 ####[facility] [address] [place], [address] CO2 [Moles/Vol] 17.2 mmol/L Low 21.0-32.0 [facility] Comment on above: Performed By: #### L 500.2500 ####[facility] [address] [place], [address] Creatinine [Mass/Vol] 3.74 mg/dL High 0.70-1.20 [facility] Comment on above: Performed By: #### L 500.2500 ####[facility] [address] [place], [address] ECRCL 13.61 ml/min Low 50-250 [facility] Comment on above: Performed By: #### L 500.2500 ####[facility] [address] [place], [address] GAP 17 High 5-15 [facility] Comment on above: Performed By: #### L 500.2500 ####[facility] [address] [place], [address] GFR/1.73 sq M.predicted among non-blacks MDRD (S/P/Bld) [Vol rate/Area] 16 mL/min/{1.73_m2} Low >60 [facility] Comment on above: Result Comment: mL/m in/1.73m2 CKD-EPI Creatinine Equation (2020) Performed By: #### L 500.2500 ####[facility] [address] [place], [address] Glucose [Mass/Vol] 226 mg/dL High 70-99 [facility] Comment on above: Performed By: #### L 500.2500 ####[facility] [address] [place], [address] Potassium [Moles/Vol] 5.4 mmol/L High 3.3-5.1 [facility] Comment on above: Performed By: #### L 500.2500 ####[facility] [address] [place], [address] Sodium [Moles/Vol] 134 mmol/L Normal 133-145 [facility] Comment on above: Performed By: #### L 500.2500 ####[facility] [address] [place], [address] Urea nitrogen [Mass/Vol] 77 mg/dL High 4-19 [facility] Comment on above: Performed By: #### L 500.2500 ####[facility] [address] [place], [address] BUN/CRE 21.0 RATIO High 10-20 [facility] Comment on above: Performed By: #### L 500.2500 ####[facility] [address] [place], [address] Calcium [Mass/Vol] 8.7 mg/dL Normal 7.6-11.0 [facility] Comment on above: Performed By: #### L 500.2500 ####[facility] [address] [place], [address] Chloride [Moles/Vol] 104 mmol/L Normal 98-108 [facility] Comment on above: Performed By: #### L 500.2500 ####[facility] [address] [place], [address] CO2 [Moles/Vol] 17.5 mmol/L Low 21.0-32.0 [facility] Comment on above: Performed By: #### L 500.2500 ####[facility] [address] [place], [address] Creatinine [Mass/Vol] 3.34 mg/dL High 0.70-1.20 [facility] Comment on above: Performed By: #### L 500.2500 ####[facility] [address] [place], [address] ECRCL 15.24 ml/min Low 50-250 [facility] Comment on above: Performed By: #### L 500.2500 ####[facility] [address] [place], [address] GAP 15 Normal 5-15 [facility] Comment on above: Performed By: #### L 500.2500 ####[facility] [address] [place], [address] GFR/1.73 sq M.predicted among non-blacks MDRD (S/P/Bld) [Vol rate/Area] 18 mL/min/{1.73_m2} Low >60 [facility] Comment on above: Result Comment: mL/m in/1.73m2 CKD-EPI Creatinine Equation (2020) Performed By: #### L 500.2500 ####[facility] [address] [place], [address] Glucose [Mass/Vol] 208 mg/dL High 70-99 [facility] Comment on above: Performed By: #### L 500.2500 ####[facility] [address] [place], [address] Potassium [Moles/Vol] 5.0 mmol/L Normal 3.3-5.1 [facility] Comment on above: Performed By: #### L 500.2500 ####[facility] [address] [place], [address] Sodium [Moles/Vol] 137 mmol/L Normal 133-145 [facility] Comment on above: Performed By: #### L 500.2500 ####[facility] [address] [place], [address] Urea nitrogen [Mass/Vol] 70 mg/dL High 4-19 [facility] Comment on above: Performed By: #### L 500.2500 ####[facility] [address] [place], [address] BUN/CRE 21.1 RATIO High 10-20 [facility] Comment on above: Performed By: #### L 500.2500 ####[facility] [address] [place], [address] Calcium [Mass/Vol] 8.6 mg/dL Normal 7.6-11.0 [facility] Comment on above: Performed By: #### L 500.2500 ####[facility] [address] [place], [address] Chloride [Moles/Vol] 103 mmol/L Normal 98-108 [facility] Comment on above: Performed By: #### L 500.2500 ####[facility] [address] [place], [address] CO2 [Moles/Vol] 17.8 mmol/L Low 21.0-32.0 [facility] Comment on above: Performed By: #### L 500.2500 ####[facility] [address] [place], [address] Creatinine [Mass/Vol] 3.26 mg/dL High 0.70-1.20 [facility] Comment on above: Performed By: #### L 500.2500 ####[facility] [address] [place], [address] ECRCL 15.61 ml/min Low 50-250 [facility] Comment on above: Performed By: #### L 500.2500 ####[facility] [address] [place], [address] GAP 15 Normal 5-15 [facility] Comment on above: Performed By: #### L 500.2500 ####[facility] [address] [place], [address] GFR/1.73 sq M.predicted among non-blacks MDRD (S/P/Bld) [Vol rate/Area] 18 mL/min/{1.73_m2} Low >60 [facility] Comment on above: Result Comment: mL/m in/1.73m2 CKD-EPI Creatinine Equation (2020) Performed By: #### L 500.2500 ####[facility] [address] [place], [address] Glucose [Mass/Vol] 203 mg/dL High 70-99 [facility] Comment on above: Performed By: #### L 500.2500 ####[facility] [address] [place], [address] Potassium [Moles/Vol] 4.6 mmol/L Normal 3.3-5.1 [facility] Comment on above: Performed By: #### L 500.2500 ####[facility] [address] [place], [address] Sodium [Moles/Vol] 136 mmol/L Normal 133-145 [facility] Comment on above: Performed By: #### L 500.2500 ####[facility] [address] [place], [address] Urea nitrogen [Mass/Vol] 69 mg/dL High 4-19 [facility] Comment on above: Performed By: #### L 500.2500 ####[facility] [address] [place], [address] Bedside Glucoseon 04-04-2025 FINGERSTICK GLU 355 mg/dL High 74-106 [facility] Comment on above: Result Comment: ADITI GEMENT OF PATIENT CARE PER NURSING PROTOCOL Performed By: #### L 501.080 ####[facility] [address] [place], [address] FINGERSTICK GLU 307 mg/dL High 74-106 [facility] Comment on above: Result Comment: ADITI GEMENT OF PATIENT CARE PER NURSING PROTOCOL Performed By: #### L 501.080 ####[facility] [address] [place], [address] FINGERSTICK GLU 209 mg/dL High 74-106 [facility] Comment on above: Result Comment: ADITI GEMENT OF PATIENT CARE PER NURSING PROTOCOL Performed By: #### L 501.080 ####[facility] [address] [place], [address] FINGERSTICK GLU 164 mg/dL High 74-106 [facility] Comment on above: Result Comment: ADITI GEMENT OF PATIENT CARE PER NURSING PROTOCOL Performed By: #### L 501.080 ####[facility] [address] [place], [address] FINGERSTICK GLU 183 mg/dL High 74-106 [facility] Comment on above: Result Comment: ADITI GEMENT OF PATIENT CARE PER NURSING PROTOCOL Performed By: #### L 501.080 ####[facility] [address] [place], [address] FINGERSTICK GLU 178 mg/dL High 74-106 [facility] Comment on above: Result Comment: ADITI GEMENT OF PATIENT CARE PER NURSING PROTOCOL Performed By: #### L 501.080 ####[facility] [address] [place], [address] FINGERSTICK GLU 174 mg/dL High 74-106 [facility] Comment on above: Result Comment: ADITI GEMENT OF PATIENT CARE PER NURSING PROTOCOL Performed By: #### L 501.080 ####[facility] [address] [place], [address] FINGERSTICK GLU 229 mg/dL High 74-106 [facility] Comment on above: Result Comment: ADITI GEMENT OF PATIENT CARE PER NURSING PROTOCOL Performed By: #### L 501.080 ####[facility] [address] [place], [address] FINGERSTICK GLU 317 mg/dL High [facility]106 [facility] Comment on above: Result Comment: ADITI GEMENT OF PATIENT CARE PER NURSING PROTOCOL Performed By: #### L 501.080 ####[facility] [address] [place], [address] FINGERSTICK GLU 366 mg/dL High [address] [place] [address] Comment on above: Result Comment: ADITI GEMENT OF PATIENT CARE PER NURSING PROTOCOL Performed By: #### L 501.080 ####[facility] [address] [place], [address] FINGERSTICK GLU 250 mg/dL High [address] [place] [address] Comment on above: Result Comment: ADITI GEMENT OF PATIENT CARE PER NURSING PROTOCOL Performed By: #### L 501.080 ####[facility] [address] [place], [address] FINGERSTICK GLU 284 mg/dL High -106 [facility] Comment on above: Result Comment: ADITI GEMENT OF PATIENT CARE PER NURSING PROTOCOL Performed By: #### L 501.080 ####[facility] [address] [place], [address] FINGERSTICK GLU 235 mg/dL High 74-106 [facility] Comment on above: Result Comment: ADITI GEMENT OF PATIENT CARE PER NURSING PROTOCOL Performed By: #### L 501.080 ####[facility] [address] [place], [address] FINGERSTICK GLU 261 mg/dL High 74-106 [facility] Comment on above: Result Comment: ADITI GEMENT OF PATIENT CARE PER NURSING PROTOCOL Performed By: #### L 501.080 ####[facility] [address] [place], [address] CBC W/Diff, Automatedon 06-0 4-2025 Absolute Lymph 1.08 X10 3/uL Normal 0.83-4.51 [facility] Comment on above: Performed By: #### L 100.0100 ####[facility] [address] [place], [address] Absolute Neut 19.9 X10 3/uL High 2.0-7.7 [facility] Comment on above: Performed By: #### L 100.0100 ####[facility] [address] [place], [address] Basophils/100 WBC (Bld) 0.1 % Normal 0-1 [facility] Comment on above: Performed By: #### L 100.0100 ####[facility] [address] [place], [address] Eosinophils/100 WBC (Bld) 0.0 % Normal 0-5 [facility] Comment on above: Performed By: #### L 100.0100 ####[facility] [address] [place], [address] Erythrocyte distribution width (RBC) [Ratio] 13.6 % Normal 11.6-14.6 [facility] Comment on above: Performed By: #### L 100.0100 ####[facility] [address] [place], [address] Hematocrit (Bld) [Volume fraction] 22.8 % Low 40-54 [facility] Comment on above: Performed By: #### L 100.0100 ####[facility] [address] [place], [address] Hemoglobin (Bld) [Mass/Vol] 7.4 g/dL Low 13.0-16.5 [facility] Comment on above: Performed By: #### L 100.0100 ####[facility] [address] [place], [address] IG% 0.600 Normal 0.0-0.9 [facility] Comment on above: Result Comment: IG% - Immature Granulocytes (promyelocytes, myelocytes andmetamyelocytes) > 1% indicates that a LEFT SHIFT is Present. Performed By: #### L 100.0100 ####[facility] [address] [place], [address] Lymphocytes/100 WBC (Bld) 4.9 % Low 19-41 [facility] Comment on above: Performed By: #### L 100.0100 ####[facility] [address] [place], [address] MCH (RBC) [Entitic mass] 30.0 pg Normal 27.0-32.0 [facility] Comment on above: Performed By: #### L 100.0100 ####[facility] [address] [place], [address] MCHC (RBC) [Mass/Vol] 32.5 g/dL Normal 32-36 [facility] Comment on above: Performed By: #### L 100.0100 ####[facility] [address] [place], [address] MCV (RBC) [Entitic vol] 92.3 fL Normal 80-94 [facility] Comment on above: Performed By: #### L 100.0100 ####[facility] [address] [place], [address] Monocytes/100 WBC (Bld) 4.0 % Normal 0-10 [facility] Comment on above: Performed By: #### L 100.0100 ####[facility] [address] [place], [address] Neutrophils/100 WBC (Bld) 90.4 % High 47-70 [facility] Comment on above: Performed By: #### L 100.0100 ####[facility] [address] [place], [address] Nucleated RBC (Bld) [#/Vol] 0 10*3/uL Normal 0-5 [facility] Comment on above: Performed By: #### L 100.0100 ####[facility] [address] [place], [address] Platelet mean volume (Bld) [Entitic vol] 11.4 fL Normal 6.2-12.0 [facility] Comment on above: Performed By: #### L 100.0100 ####[facility] [address] [place], [address] Platelets (Bld) [#/Vol] 230 10*3/uL Normal 150-450 [facility] Comment on above: Performed By: #### L 100.0100 ####[facility] [address] [place], [address] RBC (Bld) [#/Vol] 2.47 10*6/uL Low 4.6-6.2 [facility] Comment on above: Performed By: #### L 100.0100 ####[facility] [address] [place], [address] RDW SD 45.9 fl High 35.1-43.9 [facility] Comment on above: Performed By: #### L 100.0100 ####[facility] [address] [place], [address] WBC (Bld) [#/Vol] 22.0 10*3/uL High 4.4-11.0 [facility] Comment on above: Performed By: #### L 100.0100 ####[facility] [address] [place], [place], [address] Consultation - Nephrologyon 04-04-2025 Consultation - Nephrology Normal [facility] Creatinine, Urineon 04-04-20 25 URINE CREAT 138.00 mg/dL Normal 39.00-259.00 [facility] Comment on above: Performed By: #### L 502.0715, L502.0300 ####[facility] [address] [place], [address] Kidney and Bladderon 025 Kidney and Bladder Normal [facility] L501.4021on 04-04-2025 Trop T High Sen 2204 ng/L Invalid Interpretation Code <=22 [facility] Comment on above: Result Comment: Crit ical Result(s) Called at: 2232 by: JEANNIE SHARMA Results read back by same. Performed By: #### L 501.4021 ####[facility] [address] [place], [address] Troponin T.cardiac [Mass/vol ume] in Serum or Plasma by High sensitivity methodOrdered By: Breezy Campbell on 04-04-2025 Troponin T.cardiac High sensitivity method [Mass/Vol] 2204 ng/L High <22 [facility] Comment on above: Delta: 58 on 5-0005Critical Result(s) Called at: 2232 by: JEANNIE SHARMA Results read back by same. Troponin T.cardiac High sensitivity method [Mass/Vol] 2263 ng/L High <22 [facility] Comment on above: Critical Result(s) C alled at: 0040 by: JENNIFER SHARMA Results read back by same. Urea Nitrogen, Urineon 04-04 URINE UREA 406 mg/dL Normal NO RANGE EST. [facility] Comment on above: Performed By: #### L 502.0715, L502.0300 ####[facility] [address] [place], [address] Urine Cultureon 04-04-2025 URC Culture exhibits no growth. Normal [facility] Comment on above: Performed By: #### M 100.2200 ####[facility] [address] [place], [place], [address] Urine creatinine measurement (mass/volume)Ordered By: Grace Arnold on 04-04-2025 Creatinine (U) [Mass/Vol] 138.00 mg/dL 39.00-25 9.00 [facility] 12 Lead EKGon 04-03-2025 12 Lead EKG Normal [facility] Absolute lymphocyte countOrd ered By: John Brandon on 04-03-2025 Lymphocytes Auto (Unsp spec) [#/Vol] 2.12 10*3/uL 0.83-4.51 [facility] Absolute neutrophil countOrd ered By: John Brandon on 04-03-2025 Neutrophils (Bld) [#/Vol] 12.0 10*3/uL High 2.0-7.7 [facility] Activated partial thrombopla stin time (aPTT) in platelet poor plasma by coagulation aOrdered By: Grace Arnold on 04-03-2025 aPTT Coag (PPP) [Time] 212.0 s High 24.1-36.2 [facility] Comment on above: CRITICAL VALUE GRIMM D TO RElizabet OBREGONZO04/03/25 1243 Ness Huang.RESULTS READ BACK BY SAME. Activated partial thrombopla stin time (aPTT) in platelet poor plasma by coagulation aOrdered By: Dyana Hwang on 04-03-2025 aPTT Coag (PPP) [Time] 37.3 s High 24.1-36.2 [facility] Anion gap in Serum or Plasma Ordered By: John Brandon on 04-03-2025 Anion gap [Moles/Vol] 14 mmol/L 5-15 [facility] Assessment of wrist artery p atency prior to arterial punctureOrdered By: Dyana Hwang on 04-03-2025 Arterial patency Wrist artery --pre arterial puncture Positive [facility] Automated lymphocyte count a s percentage of total leukocytesOrdered By: John Brandon on 04-03-2025 Lymphocytes/100 WBC Auto (Unsp spec) 13.5 % Low 19-41 [facility] BUN/creatinine ratioOrdered By: John Brandon on 04-03-2025 Urea nitrogen/Creatinine [Mass ratio] 22.3 mg/mg High 10-20 [facility] Basic Metabolic Profile (BMP )on 04-03-2025 BUN/CRE 21.7 RATIO High 10-20 [facility] Comment on above: Performed By: #### L 500.2500 ####[facility] [address] [place], [address] Calcium [Mass/Vol] 8.5 mg/dL Normal 7.6-11.0 [facility] Comment on above: Performed By: #### L 500.2500 ####[facility] [address] [place], [address] Chloride [Moles/Vol] 102 mmol/L Normal 98-108 [facility] Comment on above: Performed By: #### L 500.2500 ####[facility] [address] [place], [address] CO2 [Moles/Vol] 17.3 mmol/L Low 21.0-32.0 [facility] Comment on above: Performed By: #### L 500.2500 ####[facility] [address] [place], [address] Creatinine [Mass/Vol] 3.02 mg/dL High 0.70-1.20 [facility] Comment on above: Performed By: #### L 500.2500 ####[facility] [address] [place], [address] ECRCL 16.69 ml/min Low 50-250 [facility] Comment on above: Performed By: #### L 500.2500 ####[facility] [address] [place], [address] GAP 16 High 5-15 [facility] Comment on above: Performed By: #### L 500.2500 ####[facility] [address] [place], [address] GFR/1.73 sq M.predicted among non-blacks MDRD (S/P/Bld) [Vol rate/Area] 20 mL/min/{1.73_m2} Low >60 [facility] Comment on above: Result Comment: mL/m in/1.73m2 CKD-EPI Creatinine Equation (2020) Performed By: #### L 500.2500 ####[facility] [address] [place], [address] Glucose [Mass/Vol] 275 mg/dL High 70-99 [facility] Comment on above: Performed By: #### L 500.2500 ####[facility] [address] [place], [address] Potassium [Moles/Vol] 4.5 mmol/L Normal 3.3-5.1 [facility] Comment on above: Performed By: #### L 500.2500 ####[facility] [address] [place], [address] Sodium [Moles/Vol] 136 mmol/L Normal 133-145 [facility] Comment on above: Performed By: #### L 500.2500 ####[facility] [address] [place], [address] Urea nitrogen [Mass/Vol] 66 mg/dL High 4-19 [facility] Comment on above: Performed By: #### L 500.2500 ####[facility] [address] [place], [address] BUN/CRE 22.9 RATIO High 10-20 [facility] Comment on above: Performed By: #### L 500.2500 ####[facility] [address] [place], [address] Calcium [Mass/Vol] 9.0 mg/dL Normal 7.6-11.0 [facility] Comment on above: Performed By: #### L 500.2500 ####[facility] [address] [place], [address] Chloride [Moles/Vol] 100 mmol/L Normal 98-108 [facility] Comment on above: Performed By: #### L 500.2500 ####[facility] [address] [place], [address] CO2 [Moles/Vol] 16.9 mmol/L Low 21.0-32.0 [facility] Comment on above: Performed By: #### L 500.2500 ####[facility] [address] [place], [address] Creatinine [Mass/Vol] 2.73 mg/dL High 0.70-1.20 [facility] Comment on above: Performed By: #### L 500.2500 ####[facility] [address] [place], [address] ECRCL 18.46 ml/min Low 50-250 [facility] Comment on above: Performed By: #### L 500.2500 ####[facility] [address] [place], [address] GAP 18 High 5-15 [facility] Comment on above: Performed By: #### L 500.2500 ####[facility] [address] [place], [address] GFR/1.73 sq M.predicted among non-blacks MDRD (S/P/Bld) [Vol rate/Area] 23 mL/min/{1.73_m2} Low >60 [facility] Comment on above: Result Comment: mL/m in/1.73m2 CKD-EPI Creatinine Equation (2020) Performed By: #### L 500.2500 ####[facility] [address] [place], [address] Glucose [Mass/Vol] 407 mg/dL High 70-99 [facility] Comment on above: Performed By: #### L 500.2500 ####[facility] [address] [place], [address] Potassium [Moles/Vol] 4.3 mmol/L Normal 3.3-5.1 [facility] Comment on above: Performed By: #### L 500.2500 ####[facility] [address] [place], [address] Sodium [Moles/Vol] 135 mmol/L Normal 133-145 [facility] Comment on above: Performed By: #### L 500.2500 ####[facility] [address] [place], [address] Urea nitrogen [Mass/Vol] 62 mg/dL High 4-19 [facility] Comment on above: Performed By: #### L 500.2500 ####[facility] [address] [place], [address] BUN/CRE 21.7 RATIO High 10-20 [facility] Comment on above: Performed By: #### L 500.2500 ####[facility] [address] [place], [address] Calcium [Mass/Vol] 8.6 mg/dL Normal 7.6-11.0 [facility] Comment on above: Performed By: #### L 500.2500 ####[facility] [address] [place], [address] Chloride [Moles/Vol] 98 mmol/L Normal 98-108 [facility] Comment on above: Performed By: #### L 500.2500 ####[facility] [address] [place], [address] CO2 [Moles/Vol] 13.6 mmol/L Low 21.0-32.0 [facility] Comment on above: Performed By: #### L 500.2500 ####[facility] [address] [place], [address] Creatinine [Mass/Vol] 2.67 mg/dL High 0.70-1.20 [facility] Comment on above: Performed By: #### L 500.2500 ####[facility] [address] [place], [address] ECRCL 18.87 ml/min Low 50-250 [facility] Comment on above: Performed By: #### L 500.2500 ####[facility] [address] [place], [address] GAP 21 High 5-15 [facility] Comment on above: Performed By: #### L 500.2500 ####[facility] [address] [place], [address] GFR/1.73 sq M.predicted among non-blacks MDRD (S/P/Bld) [Vol rate/Area] 23 mL/min/{1.73_m2} Low >60 [facility] Comment on above: Result Comment: mL/m in/1.73m2 CKD-EPI Creatinine Equation (2020) Performed By: #### L 500.2500 ####[facility] [address] [place], [address] Glucose [Mass/Vol] 638 mg/dL Invalid Interpretation Code 70-99 [facility] Comment on above: Result Comment: Crit ical Result(s) Called CRISMULE at: 1553 by:COLETTE??Results read back by same. Performed By: #### L 500.2500 ####[facility] [address] [place], [address] Potassium [Moles/Vol] 4.4 mmol/L Normal 3.3-5.1 [facility] Comment on above: Performed By: #### L 500.2500 ####[facility] [address] [place], [address] Sodium [Moles/Vol] 133 mmol/L Normal 133-145 [facility] Comment on above: Performed By: #### L 500.2500 ####[facility] [address] [place], [address] Urea nitrogen [Mass/Vol] 58 mg/dL High 4-19 [facility] Comment on above: Performed By: #### L 500.2500 ####[facility] [address] [place], [address] BUN/CRE 22.3 RATIO High 10-20 [facility] Comment on above: Performed By: #### L 100.0100, L500.2500, L300.8000 ####[facility] [address] [place], [address] Calcium [Mass/Vol] 8.8 mg/dL Normal 7.6-11.0 [facility] Comment on above: Performed By: #### L 100.0100, L500.2500, L300.8000 ####[facility] [address] [place], [address] Chloride [Moles/Vol] 104 mmol/L Normal 98-108 [facility] Comment on above: Performed By: #### L 100.0100, L500.2500, L300.8000 ####[facility] [address] [place], [address] CO2 [Moles/Vol] 20.8 mmol/L Low 21.0-32.0 [facility] Comment on above: Performed By: #### L 100.0100, L500.2500, L300.8000 ####[facility] [address] [place], [address] Creatinine [Mass/Vol] 1.88 mg/dL High 0.70-1.20 [facility] Comment on above: Performed By: #### L 100.0100, L500.2500, L300.8000 ####[facility] [address] [place], [address] ECRCL 28.20 ml/min Low 50-250 [facility] Comment on above: Performed By: #### L 100.0100, L500.2500, L300.8000 ####[facility] [address] [place], [address] GAP 14 Normal 5-15 [facility] Comment on above: Performed By: #### L 100.0100, L500.2500, L300.8000 ####[facility] [address] [place], [address] GFR/1.73 sq M.predicted among non-blacks MDRD (S/P/Bld) [Vol rate/Area] 35 mL/min/{1.73_m2} Low >60 [facility] Comment on above: Result Comment: mL/m in/1.73m2 CKD-EPI Creatinine Equation (2020) Performed By: #### L 100.0100, L500.2500, L300.8000 ####[facility] [address] [place], [address] Glucose [Mass/Vol] 255 mg/dL High 70-99 [facility] Comment on above: Performed By: #### L 100.0100, L500.2500, L300.8000 ####[facility] [address] [place], [address] Potassium [Moles/Vol] 4.4 mmol/L Normal 3.3-5.1 [facility] Comment on above: Performed By: #### L 100.0100, L500.2500, L300.8000 ####[facility] [address] [place], [address] Sodium [Moles/Vol] 139 mmol/L Normal 133-145 [facility] Comment on above: Performed By: #### L 100.0100, L500.2500, L300.8000 ####[facility] [address] [place], [address] Urea nitrogen [Mass/Vol] 42 mg/dL High 4-19 [facility] Comment on above: Performed By: #### L 100.0100, L500.2500, L300.8000 ####[facility] [address] [place], [address] Basophil percentageOrdered B y: John Aleksandr on 04-03-2025 Basophils/100 WBC (Bld) 0.6 % 0-1 [facility] Bedside Glucoseon 04-03-2025 FINGERSTICK GLU 363 mg/dL High 74-106 [facility] Comment on above: Result Comment: ADITI GEMENT OF PATIENT CARE PER NURSING PROTOCOL Performed By: #### L 501.080 ####[facility] [address] [place], [address] FINGERSTICK GLU 454 mg/dL Invalid Interpretation Code [address] [place] [address] Comment on above: Result Comment: Dr James sim FollowedMANAGEMENT OF PATIENT CARE PER NURSING PROTOCOL Performed By: #### L 501.080 ####[facility] [address] [place], [address] FINGERSTICK GLU 496 mg/dL Invalid Interpretation Code [address] [place] [address] Comment on above: Result Comment: Dr James sim FollowedMANAGEMENT OF PATIENT CARE PER NURSING PROTOCOL Performed By: #### L 501.080 ####[facility] [address] [place], [address] FINGERSTICK GLU > 500 Invalid Interpretation Code [address] [place] [address] Comment on above: Result Comment: ADITI GEMENT OF PATIENT CARE PER NURSING PROTOCOL Performed By: #### L 501.080 ####[facility] [address] [place], [address] FINGERSTICK GLU > 500 Invalid Interpretation Code [address] [place] [address] Comment on above: Result Comment: ADITI GEMENT OF PATIENT CARE PER NURSING PROTOCOL Performed By: #### L 501.080 ####[facility] [address] [place], [address] FINGERSTICK GLU > 500 Invalid Interpretation Code [address] [place] [address] Comment on above: Result Comment: ADITI GEMENT OF PATIENT CARE PER NURSING PROTOCOL Performed By: #### L 501.080 ####[facility] [address] [place], [address] FINGERSTICK GLU 435 mg/dL High [address] [place] [address] Comment on above: Result Comment: ADITI GEMENT OF PATIENT CARE PER NURSING PROTOCOL Performed By: #### L 501.080 ####[facility] [address] [place], [address] Bilirubin, totalOrdered By: Dyana Hwang on 04-03-2025 Bilirubin [Mass/Vol] 0.38 mg/dL 0.00-1.30 [facility] FIL[facility] TEST Positive Normal [facility] Comment on above: Performed By: #### L 9000.0800 ####[facility] [address] [place], [address] Base excess Calc (Bld) [Moles/Vol] -8 mmol/L Low -2 to +2 [facility] Comment on above: Performed By: #### L 9000.0800 ####[facility] [address] [place], [address] Blood Gas Type ART Normal [facility] Comment on above: Performed By: #### L 9000.0800 ####[facility] [address] [place], [address] CO2 [Moles/Vol] 18 mmol/L Normal [facility] Comment on above: Performed By: #### L 9000.0800 ####[facility] [address] [place], [address] FI02 30.0 Normal [facility] Comment on above: Performed By: #### L 9000.0800 ####[facility] [address] [place], [address] HCO3 (Bld) [Moles/Vol] 17.5 mmol/L Low 22-26 [facility] Comment on above: Performed By: #### L 9000.0800 ####[facility] [address] [place], [address] Mode Not entered [facility] Comment on above: Performed By: #### L 9000.0800 ####[facility] [address] [place], [address] O2 Delivery Dev BiPAP Normal [facility] Comment on above: Performed By: #### L 9000.0800 ####[facility] [address] [place], [address] pCO2 29.8 mmHg Low 35-45 [facility] Comment on above: Performed By: #### L 9000.0800 ####[facility] [address] [place], [address] PEEP 10 Normal [facility] Comment on above: Performed By: #### L 9000.0800 ####[facility] [address] [place], [address] pH (Bld) 7.38 [pH] Normal 7.35-7.45 [facility] Comment on above: Performed By: #### L 9000.0800 ####[facility] [address] [place], [address] PIP 18 Normal [facility] Comment on above: Performed By: #### L 9000.0800 ####[facility] [address] [place], [address] PO2 83 mmHG Normal 75-100 [facility] Comment on above: Performed By: #### L 9000.0800 ####[facility] [address] [place], [address] RR 12 Normal [facility] Comment on above: Performed By: #### L 9000.0800 ####[facility] [address] [place], [address] SITE R Radial Normal [facility] Comment on above: Performed By: #### L 9000.0800 ####[facility] [address] [place], [address] SO2 96 Normal 95-99 [facility] Comment on above: Performed By: #### L 9000.0800 ####[facility] [address] [place], [address] Blood base excess determinat ionOrdered By: Dyana Hwang on 04-03-2025 Base excess Calc (BldV) [Moles/Vol] -8 mmol/L Low -2-2 [facility] Blood bicarbonate measuremen tOrdered By: Dyana Hwang on 04-03-2025 HCO3 (Bld) [Moles/Vol] 17.5 mmol/L Low 22-26 [facility] Blood cultureOrdered By: Elli Brandon on 04-03-2025 Bacteria identified Cx Nom (Bld) No growth in 5 days. [facility] Bacteria identified Cx Nom (Bld) No growth in 5 days. [facility] CBC W/Diff, Automatedon 06 Absolute Lymph 0.43 X10 3/uL Low 0.83-4.51 [facility] Comment on above: Performed By: #### L 100.0100 ####[facility] [address] [place], [address] Absolute Neut 12.4 X10 3/uL High 2.0-7.7 [facility] Comment on above: Performed By: #### L 100.0100 ####[facility] [address] [place], [address] Basophils/100 WBC (Bld) 0.3 % Normal 0-1 [facility] Comment on above: Performed By: #### L 100.0100 ####[facility] [address] [place], [address] Eosinophils/100 WBC (Bld) 0.0 % Normal 0-5 [facility] Comment on above: Performed By: #### L 100.0100 ####[facility] [address] [place], [address] Erythrocyte distribution width (RBC) [Ratio] 13.4 % Normal 11.6-14.6 [facility] Comment on above: Performed By: #### L 100.0100 ####[facility] [address] [place], [address] Hematocrit (Bld) [Volume fraction] 28.9 % Low 40-54 [facility] Comment on above: Performed By: #### L 100.0100 ####[facility] [address] [place], [address] Hemoglobin (Bld) [Mass/Vol] 9.3 g/dL Low 13.0-16.5 [facility] Comment on above: Performed By: #### L 100.0100 ####[facility] [address] [place], [address] IG% 0.500 Normal 0.0-0.9 [facility] Comment on above: Result Comment: IG% - Immature Granulocytes (promyelocytes, myelocytes andmetamyelocytes) > 1% indicates that a LEFT SHIFT is Present. Performed By: #### L 100.0100 ####[facility] [address] [place], [address] Lymphocytes/100 WBC (Bld) 3.3 % Low 19-41 [facility] Comment on above: Performed By: #### L 100.0100 ####[facility] [address] [place], [address] MCH (RBC) [Entitic mass] 30.1 pg Normal 27.0-32.0 [facility] Comment on above: Performed By: #### L 100.0100 ####[facility] [address] [place], [address] MCHC (RBC) [Mass/Vol] 32.2 g/dL Normal 32-36 [facility] Comment on above: Performed By: #### L 100.0100 ####[facility] [address] [place], [address] MCV (RBC) [Entitic vol] 93.5 fL Normal 80-94 [facility] Comment on above: Performed By: #### L 100.0100 ####[facility] [address] [place], [address] Monocytes/100 WBC (Bld) 1.1 % Normal 0-10 [facility] Comment on above: Performed By: #### L 100.0100 ####[facility] [address] [place], [address] Neutrophils/100 WBC (Bld) 94.8 % High 47-70 [facility] Comment on above: Performed By: #### L 100.0100 ####[facility] [address] [place], [address] Nucleated RBC (Bld) [#/Vol] 0 10*3/uL Normal 0-5 [facility] Comment on above: Performed By: #### L 100.0100 ####[facility] [address] [place], [address] Platelet mean volume (Bld) [Entitic vol] 11.4 fL Normal 6.2-12.0 [facility] Comment on above: Performed By: #### L 100.0100 ####[facility] [address] [place], [address] Platelets (Bld) [#/Vol] 268 10*3/uL Normal 150-450 [facility] Comment on above: Performed By: #### L 100.0100 ####[facility] [address] [place], [address] RBC (Bld) [#/Vol] 3.09 10*6/uL Low 4.6-6.2 [facility] Comment on above: Performed By: #### L 100.0100 ####[facility] [address] [place], [address] RDW SD 45.9 fl High 35.1-43.9 [facility] Comment on above: Performed By: #### L 100.0100 ####[facility] [address] [place], [address] WBC (Bld) [#/Vol] 13.0 10*3/uL High 4.4-11.0 [facility] Comment on above: Performed By: #### L 100.0100 ####[facility] [address] [place], [address] Absolute Lymph 2.12 X10 3/uL Normal 0.83-4.51 [facility] Comment on above: Performed By: #### L 100.0100, L500.2500, L300.8000 ####[facility] [address] [place], [address] Absolute Neut 12.0 X10 3/uL High 2.0-7.7 [facility] Comment on above: Performed By: #### L 100.0100, L500.2500, L300.8000 ####[facility] [address] [place], [address] Basophils/100 WBC (Bld) 0.6 % Normal 0-1 [facility] Comment on above: Performed By: #### L 100.0100, L500.2500, L300.8000 ####[facility] [address] [place], [address] Eosinophils/100 WBC (Bld) 1.9 % Normal 0-5 [facility] Comment on above: Performed By: #### L 100.0100, L500.2500, L300.8000 ####[facility] [address] [place], [address] Erythrocyte distribution width (RBC) [Ratio] 13.2 % Normal 11.6-14.6 [facility] Comment on above: Performed By: #### L 100.0100, L500.2500, L300.8000 ####[facility] [address] [place], [address] Hematocrit (Bld) [Volume fraction] 32.2 % Low 40-54 [facility] Comment on above: Performed By: #### L 100.0100, L500.2500, L300.8000 ####[facility] [address] [place], [address] Hemoglobin (Bld) [Mass/Vol] 10.2 g/dL Low 13.0-16.5 [facility] Comment on above: Performed By: #### L 100.0100, L500.2500, L300.8000 ####[facility] [address] [place], [address] IG% 0.600 Normal 0.0-0.9 [facility] Comment on above: Result Comment: IG% - Immature Granulocytes (promyelocytes, myelocytes andmetamyelocytes) > 1% indicates that a LEFT SHIFT is Present. Performed By: #### L 100.0100, L500.2500, L300.8000 ####[facility] [address] [place], [address] Lymphocytes/100 WBC (Bld) 13.5 % Low 19-41 [facility] Comment on above: Performed By: #### L 100.0100, L500.2500, L300.8000 ####[facility] [address] [place], [address] MCH (RBC) [Entitic mass] 29.9 pg Normal 27.0-32.0 [facility] Comment on above: Performed By: #### L 100.0100, L500.2500, L300.8000 ####[facility] [address] [place], [address] MCHC (RBC) [Mass/Vol] 31.7 g/dL Low 32-36 [facility] Comment on above: Performed By: #### L 100.0100, L500.2500, L300.8000 ####[facility] [address] [place], [address] MCV (RBC) [Entitic vol] 94.4 fL High 80-94 [facility] Comment on above: Performed By: #### L 100.0100, L500.2500, L300.8000 ####[facility] [address] [place], [address] Monocytes/100 WBC (Bld) 7.0 % Normal 0-10 [facility] Comment on above: Performed By: #### L 100.0100, L500.2500, L300.8000 ####[facility] [address] [place], [address] Neutrophils/100 WBC (Bld) 76.4 % High 47-70 [facility] Comment on above: Performed By: #### L 100.0100, L500.2500, L300.8000 ####[facility] [address] [place], [address] Nucleated RBC (Bld) [#/Vol] 0 10*3/uL Normal 0-5 [facility] Comment on above: Performed By: #### L 100.0100, L500.2500, L300.8000 ####[facility] [address] [place], [address] Platelet mean volume (Bld) [Entitic vol] 10.8 fL Normal 6.2-12.0 [facility] Comment on above: Performed By: #### L 100.0100, L500.2500, L300.8000 ####[facility] [address] [place], [address] Platelets (Bld) [#/Vol] 300 10*3/uL Normal 150-450 [facility] Comment on above: Performed By: #### L 100.0100, L500.2500, L300.8000 ####[facility] [address] [place], [address] RBC (Bld) [#/Vol] 3.41 10*6/uL Low 4.6-6.2 [facility] Comment on above: Performed By: #### L 100.0100, L500.2500, L300.8000 ####[facility] [address] [place], [address] RDW SD 45.3 fl High 35.1-43.9 [facility] Comment on above: Performed By: #### L 100.0100, L500.2500, L300.8000 ####[facility] [address] [place], [address] WBC (Bld) [#/Vol] 15.7 10*3/uL High 4.4-11.0 [facility] Comment on above: Performed By: #### L 100.0100, L500.2500, L300.8000 ####[facility] [address] [place], [address] CO2 (BldV) [Moles/Vol]Ordere d By: John Brandon on 04-03-2025 CO2 [Moles/Vol] 27 mmol/L 23-33 [facility] CTA Chest W/WO Contraston CTA Chest W/WO Contrast Normal [facility] Calculated very low density lipoprotein (VLDL) cholesterol measurementOrdered By: Dyana Hwang on 04-03-2025 Calculated very low density lipoprotein (VLDL) cholesterol measurement 9 mg/dL 5-40 [facility] Carbon dioxide, total [Moles /volume] in Central venous bloodOrdered By: John Brandon on 04-03-2025 CO2 [Moles/Vol] 20.8 mmol/L Low 21.0-32.0 [facility] Chest 1 View (Portable)on Chest 1 View (Portable) Normal [facility] Chloride assayOrdered By: Shabbir Brandon on 04-03-2025 Chloride [Moles/Vol] 104 mmol/L 98-108 [facility] Comprehensive Metabolic Prof ilon 04-03-2025 Albumin [Mass/Vol] 3.6 g/dL Normal 3.4-4.8 [facility] Comment on above: Performed By: #### L 509.7001, L500.4100, L500.4050, L501.9520 ####[facility] [address] [place], [address] Albumin/Globulin [Mass ratio] 1.5 {ratio} Normal 0.9-2.4 [facility] Comment on above: Performed By: #### L 509.7001, L500.4100, L500.4050, L501.9520 ####[facility] [address] [place], [address] ALK PHOS 80 U/L Normal 40-129 [facility] Comment on above: Performed By: #### L 509.7001, L500.4100, L500.4050, L501.9520 ####[facility] [address] [place], [address] ALT [Catalytic activity/Vol] 16 U/L Normal <=46 [facility] Comment on above: Performed By: #### L 509.7001, L500.4100, L500.4050, L501.9520 ####[facility] [address] [place], [address] AST [Catalytic activity/Vol] 24 U/L Normal <=37 [facility] Comment on above: Performed By: #### L 509.7001, L500.4100, L500.4050, L501.9520 ####[facility] [address] [place], [address] Bilirubin [Mass/Vol] 0.38 mg/dL Normal 0.00-1.30 [facility] Comment on above: Performed By: #### L 509.7001, L500.4100, L500.4050, L501.9520 ####[facility] [address] [place], [address] BUN/CRE 24.6 RATIO High 10-20 [facility] Comment on above: Performed By: #### L 509.7001, L500.4100, L500.4050, L501.9520 ####[facility] [address] [place], [address] Calcium [Mass/Vol] 7.9 mg/dL Normal 7.6-11.0 [facility] Comment on above: Performed By: #### L 509.7001, L500.4100, L500.4050, L501.9520 ####[facility] [address] [place], [address] Chloride [Moles/Vol] 104 mmol/L Normal 98-108 [facility] Comment on above: Performed By: #### L 509.7001, L500.4100, L500.4050, L501.9520 ####[facility] [address] [place], [address] CO2 [Moles/Vol] 15.5 mmol/L Low 21.0-32.0 [facility] Comment on above: Performed By: #### L 509.7001, L500.4100, L500.4050, L501.9520 ####[facility] [address] [place], [address] Creatinine [Mass/Vol] 1.77 mg/dL High 0.70-1.20 [facility] Comment on above: Performed By: #### L 509.7001, L500.4100, L500.4050, L501.9520 ####[facility] [address] [place], [address] ECRCL 28.47 ml/min Low 50-250 [facility] Comment on above: Performed By: #### L 509.7001, L500.4100, L500.4050, L501.9520 ####[facility] [address] [place], [address] GAP 18 High 5-15 [facility] Comment on above: Performed By: #### L 509.7001, L500.4100, L500.4050, L501.9520 ####[facility] [address] [place], [address] GFR/1.73 sq M.predicted among non-blacks MDRD (S/P/Bld) [Vol rate/Area] 38 mL/min/{1.73_m2} Low >60 [facility] Comment on above: Result Comment: mL/m in/1.73m2 CKD-EPI Creatinine Equation (2020) Performed By: #### L 509.7001, L500.4100, L500.4050, L501.9520 ####[facility] [address] [place], [address] Globulin (S) [Mass/Vol] 2.4 g/dL Normal 2.2-4.2 [facility] Comment on above: Performed By: #### L 509.7001, L500.4100, L500.4050, L501.9520 ####[facility] [address] [place], [address] Glucose [Mass/Vol] 428 mg/dL High 70-99 [facility] Comment on above: Performed By: #### L 509.7001, L500.4100, L500.4050, L501.9520 ####[facility] [address] [place], [address] Potassium [Moles/Vol] 4.5 mmol/L Normal 3.3-5.1 [facility] Comment on above: Performed By: #### L 509.7001, L500.4100, L500.4050, L501.9520 ####[facility] [address] [place], [address] Sodium [Moles/Vol] 137 mmol/L Normal 133-145 [facility] Comment on above: Performed By: #### L 509.7001, L500.4100, L500.4050, L501.9520 ####[facility] [address] [place], [address] T PROT 6.0 g/dL Normal 5.9-8.4 [facility] Comment on above: Performed By: #### L 509.7001, L500.4100, L500.4050, L501.9520 ####[facility] [address] [place], [address] Urea nitrogen [Mass/Vol] 44 mg/dL High 4-19 [facility] Comment on above: Performed By: #### L 509.7001, L500.4100, L500.4050, L501.9520 ####[facility] [address] [place], [address] Consultation - Cardiologyon 04-03-2025 Consultation - Cardiology Normal [facility] Consultation - Intensiviston 04-03-2025 Consultation - Extension Service Specialist Normal [facility] D-Dimer Quantitative (DVT/PE )on 04-03-2025 D-DIMER QUANT 1.86 FEU/ug/m Invalid Interpretation Code 0.27-0.49 [facility] Comment on above: Result Comment: D-Di shyanne ELEVATED (>0.49): Additional studies and clinicalassessments are indicated to conclude diagnosis of:Deep Vein Thrombosis (DVT) or Pulmonary Embolism (PE)CRITICAL VALUE CALLED TO [id number] 0117 Victor Hugo Santamaria.RESULTS READ BACK BY SAME. Performed By: #### L 100.0100, L500.2500, L300.8000 ####[facility] [address] [place], [address] Echo Completeon 04-03-2025 Echo Complete Normal [facility] Echocardiogram study reportO rdered By: Koffi Gibbs on 04-03-2025 Study report [facility] [address] [place] [address] Echo Complete 04/03/25 0920 MR#: [id number] Acct: [id number] Name: ENOC ARMANDO Rep #:[id number] : 1945 79 From: Koffi Gibbs MD [...] ~ Date Dictated: 04/03/25919 Date Transcribed: 04/03/251221 Cooker Meal: Signed [facility] Work Phone: Emergency Department Summary on 04-03-2025 Emergency Department Summary Normal [facility] Eosinophil percentageOrdered By: John Brandon on 04-03-2025 Eosinophils/100 WBC (Bld) 1.9 % 0-5 [facility] Erythrocyte distribution wid th ratioOrdered By: John Brandon on 04-03-2025 Erythrocyte distribution width (RBC) [Ratio] 13.2 % 11.6-14.6 [facility] Erythrocyte distribution wid th standard deviationOrdered By: John Brandon on 04-03-2025 Erythrocyte distribution width (RBC) [Ratio] 45.3 fl High 35.1-43.9 [facility] Glomerular filtration rate ( GFR) estimation/1.73 sq m using serum, plasma, or whole bOrdered By: John Brandon on 04-03-2025 GFR/1.73 sq M.predicted among non-blacks MDRD (S/P/Bld) [Vol rate/Area] 35 mL/min/{1.73_m2} Low >60 [facility] Comment on above: mL/min/1.73m2 CKD-EP I Creatinine Equation (2020) H AND P Exam - Hospitaliston 04-03-2025 H&P Exam - Hospitalist Normal [facility] Hematocrit Auto (Bld) [Volum e fraction]Ordered By: John Brandon on 04-03-2025 Hematocrit (Bld) [Volume fraction] 32.2 % Low 40-54 [facility] Hemoglobin measurementOrdere d By: John Brandon on 04-03-2025 Hemoglobin (Bld) [Mass/Vol] 10.2 g/dL Low 13.0-16.5 [facility] Immature granulocytes/100 WB C Auto (Bld)Ordered By: John Brandon on 04-03-2025 Immature granulocytes/100 WBC (Bld) 0.600 % 0.0-0.9 [facility] Comment on above: IG% - Immature Granu locytes (promyelocytes, myelocytes and metamyelocytes) > 1% indicates that a LEFT SHIFT is Present. Influenza virus A and B and SARS-CoV-2 (COVID-19) and Respiratory syncytial virus RNAOrdered By: John Brandon on 04-03-2025 SARS-CoV-2 (COVID-19) RNA ALICE+probe Ql (Unsp spec) [facility] International normalized rat io (INR) calculationOrdered By: Dyana Hwang on 04-03-2025 INR Coag (Bld) [Relative time] 1.0 {INR} [facility] L499.0042on 04-03-2025 Trop T High Sen Normal <=22 [facility] Comment on above: Result Comment: Canc elled via OM: Duplicate Order Performed By: #### L 499.0042 ####[facility] [address] [place], [place], [id number] Trop T High Sen 76 ng/L Invalid Interpretation Code <=22 [facility] Comment on above: Result Comment: Crit ical Result(s) Called at:0312 by:??DASIA SOUZA Results read back by same. Performed By: #### L 499.0042 ####[facility] [address] [place], [address] L499.0043on 04-03-2025 Trop T High Sen Normal <=22 [facility] Comment on above: Result Comment: Canc elled via OM: Duplicate Order Performed By: #### L 499.0043 ####[facility] [address] [place], [address] Trop T High Sen 80 ng/L Invalid Interpretation Code <=22 [facility] Comment on above: Result Comment: Crit ical Result(s) Called at: 0515 by: DASIA JOSEPH??Results read back by same. Performed By: #### L 499.0043 ####[facility] [address] [place], [address] L501.4021on 04-03-2025 Trop T High Sen 58 ng/L Invalid Interpretation Code <=22 [facility] Comment on above: Result Comment: Crit ical Result(s) Called at: 0058 by: DASIA ALBRIGHT??Results read back by same. Performed By: #### L 501.4021, L503.7505 ####[facility] [address] [facility] [place], [address] L503.7505on 04-03-2025 Natriuretic peptide B (Bld) [Mass/Vol] 6552 pg/mL High <=1800 [facility] Comment on above: Result Comment: Hear t Failure Unlikely: < 300 pg/mLHeart Failure Likely< 50 Years: > 450 pg/mL50-75 Years: > 900 pg/mL>75 Years: > 1800 pg/mL Performed By: #### L 501.4021, L503.7505 ####[facility] [address] [place], [address] L509.7001on 04-03-2025 Procalcitonin 0.31 ng/mL High <=0.10 [facility] Comment on above: Result Comment: Inte [...] By: #### L 509.7001, L500.4100, L500.4050, L501.9520 ####[facility] [address] [place], [place], [id number] LDL calc ser/plasOrdered By: Dyana Hwang on 04-03-2025 Cholesterol in LDL [Mass/Vol] 80 mg/dL [facility] Comment on above: Nuxqnqgyis=586-764 m g/dL & Higher Hywa=497 mg/dL or greater Laboratory - Chemistry and C hemistry - challengeOrdered By: Dyana Hwang on 04-03-2025 AST [Catalytic activity/Vol] 24 U/L <38 [facility] Lactic Acidon 04-03-2025 Lactate [Moles/Vol] 1.3 mmol/L Normal 0.0-2.0 [facility] Comment on above: Order Comment: Y Performed By: #### L 503.6005, M200.1000 ####[facility] [address] [place], [place], [address] Lactic acid measurementOrder ed By: John Brandon on 04-03-2025 Lactate [Moles/Vol] 1.3 mmol/L 0.0-2.0 [facility] Legionella Antigen Urineon 0 04-03-2025 LEGU Normal [facility] Comment on above: Performed By: #### M 300.8400 ####[facility] [address] [place], [address] Lipid Profileon 04-03-2025 CHOL:HDL 2.87 Normal [facility] Comment on above: Performed By: #### L 509.7001, L500.4100, L500.4050, L501.9520 ####[facility] [address] [place], [address] Cholesterol [Mass/Vol] 137 mg/dL Normal <=200 [facility] Comment on above: Result Comment: Chol esterol level, Desirable <200 mg/dLBorderline high cholesterol 200-239 mg/dLHigh cholesterol >=240 mg/dLRecommendations of the NCEP Adult Treatment Panel for thefollowing risk-cutoff thresholds for the [place] Americanpopulation. Performed By: #### L 509.7001, L500.4100, L500.4050, L501.9520 ####[facility] [address] [place], [address] Cholesterol in HDL [Mass/Vol] 48 mg/dL Normal [facility] Comment on above: Result Comment: Anastacia onal Cholesterol Education Program (NCEP) guidelines:<40 mg/dL: Low HDL-cholesterol (major risk factor for CHD)>= 60 mg/dL: High HDL-cholesterol (negative risk factor forCHD)HDL-cholesterol is affected by a number of factors, e.g.smoking, exercise, hormones, sex and age. Performed By: #### L 509.7001, L500.4100, L500.4050, L501.9520 ####[facility] [address] [place], [address] Cholesterol in LDL [Mass/Vol] 80 mg/dL Normal [facility] Comment on above: Result Comment: Bord vhpcvx=228-949 mg/dL Higher Fsri=301 mg/dL or greater Performed By: #### L 509.7001, L500.4100, L500.4050, L501.9520 ####[facility] [address] [place], [address] Cholesterol in VLDL [Mass/Vol] 9 mg/dL Normal 5-40 [facility] Comment on above: Performed By: #### L 509.7001, L500.4100, L500.4050, L501.9520 ####[facility] [address] [place], [address] Triglyceride [Mass/Vol] 44 mg/dL Normal [facility] Comment on above: Result Comment: The drugs N-Acetylcysteine and Metamizole may falselydepress this assay.Normal range: <150 mg/dLBorderline High: 150-199 mg/dLHigh: 200-499 mg/dLVery High: >500 mg/dL Performed By: #### L 509.7001, L500.4100, L500.4050, L501.9520 ####[facility] [address] [place], [address] M100.678on 04-03-2025 M100.678 SARS-CoV-2 (COVID 19) Negative INFLUENZA A Negative INFLUENZA B Negative RSV PCR Negative Normal [facility] Comment on above: Performed By: #### M 100.678 ####[facility] [address] [place], [address] M8200.1075on 04-03-2025 M8200.1075 Pending MRSA PCR MRSA NEGATIVE STAPH. AUREUS PCR STAPH. AUREUS NEGATIVE Normal [facility] Comment on above: Performed By: #### M 8200.1075 ####[facility] [address] [place], [address] MCV (mean corpuscular volume ) determinationOrdered By: John Brandon on 04-03-2025 MCV (RBC) [Entitic vol] 94.4 fL High 80-94 [facility] Magnesiumon 04-03-2025 Magnesium [Mass/Vol] 2.3 mg/dL High 1.5-2.2 [facility] Comment on above: Order Comment: Comme nts: may add to ED labs Performed By: #### L 501.5200, L300.3900, L300.4310 ####[facility] [address] [place], [address] Magnesium measurement (mass/ volume)Ordered By: Dyana Hwang on 04-03-2025 Magnesium (Unsp spec) [Mass/Vol] 2.3 mg/dL High 1.5-2.2 [facility] Mean corpuscular hemoglobin (MCH) determinationOrdered By: John Brandon on 04-03-2025 MCH (RBC) [Entitic mass] 29.9 pg 27.0-32.0 [facility] Mean corpuscular hemoglobin concentration (MCHC) determinationOrdered By: John Brandon on 04-03-2025 MCHC (RBC) [Mass/Vol] 31.7 g/dL Low 32-36 [facility] Mean platelet volume determi nationOrdered By: John Brandon on 04-03-2025 Platelet mean volume (Bld) [Entitic vol] 10.8 fL 6.2-12.0 [facility] Measurement, pHOrdered By: Anabelle Hwang on 04-03-2025 pH (Unsp spec) 7.38 [pH] 7.35-7.45 [facility] Monocyte percentageOrdered B y: John Brandon on 04-03-2025 Monocytes/100 WBC (Bld) 7.0 % 0-10 [facility] Natriuretic peptide.B prohor katja N-Terminal [Mass/volume] in Serum or PlasmaOrdered By: John Brandon on 04-03-2025 Natriuretic peptide.B prohormone N-Terminal [Mass/Vol] 6552 pg/mL High <1800 [facility] Comment on above: Heart Failure Unlike ly: < 300 pg/mLHeart Failure Likely< 50 Years: > 450 pg/mL50-75 Years: > 900 pg/mL>75 Years: > 1800 pg/mL Neutrophil percentageOrdered By: John Brandon on 04-03-2025 Neutrophils/100 WBC (Bld) 76.4 % High 47-70 [facility] No Panel InformationOrdered By: Dyana Hwang on 04-03-2025 Bedside Blood Gas PEEP 10 [facility] Bld Gas Peak Inspiratory Pressure 18 [facility] Blood Gas Respiration Rate 12 [facility] Blood Gas Sample Site R Radial [facility] Blood Gas Specimen Type ART [facility] Blood Gas Vent Mode Not entered [facility] Oxygen Delivery Device BiPAP [facility] ART [facility] R Radial [facility] Not entered [facility] BiPAP [facility] 18 [facility] 12 [facility] 10 [facility] 24 U/L <38 [facility] No Panel InformationOrdered By: John Brandon on 04-03-2025 Blood Gas Clinical Comments 18. 10. 30% [facility] 18. 10. 30% [facility] Nucleated red blood cell per centageOrdered By: John Brandon on 04-03-2025 Nucleated RBC/100 WBC (Bld) [Ratio] 0 % 0-5 [facility] Partial Thromboplast Timeon 04-03-2025 aPTT Coag (Bld) [Time] 212.0 s Invalid Interpretation Code 24.1-36.2 [facility] Comment on above: Result Comment: CRIT ICAL VALUE CALLED TO GordoElizabet CORONA04/03/25 1243 Ness Sal.RESULTS READ BACK BY SAME. Performed By: #### L 300.4310 ####[facility] [address] [place], [address] aPTT Coag (Bld) [Time] 37.3 s High 24.1-36.2 [facility] Comment on above: Performed By: #### L 501.5200, L300.3900, L300.4310 ####[facility] [address] [place], [address] Platelet countOrdered By: Shabbir Brandon on 04-03-2025 Platelets (Bld) [#/Vol] 300 10*3/uL 150-450 [facility] Potassium measurement (mass/ volume)Ordered By: John Brandon on 04-03-2025 Potassium (Unsp spec) [Mass/Vol] 4.4 mmol/L 3.3-5.1 [facility] Procalcitonin [Mass/volume] in Serum or Plasma by ImmunoassayOrdered By: Dyana Hwang on 04-03-2025 Procalcitonin IA [Mass/Vol] 0.31 ng/mL High <0.11 [facility] Comment on above: Interpretation:<0.10 -0.25 ng/mL: [...] Coag (PPP) [Relative time] 1.0 {INR} Normal [facility] Comment on above: Performed By: #### L 501.5200, L300.3900, L300.4310 ####[facility] [address] [place], [address] PT Coag (PPP) [Time] 13.4 s Normal 11.7-14.9 [facility] Comment on above: Performed By: #### L 501.5200, L300.3900, L300.4310 ####[facility] [address] [place], [address] Prothrombin timeOrdered By: Dyana Hwang on 04-03-2025 PT Coag (PPP) [Time] 13.4 s 11.7-14.9 [facility] RBC Auto (Bld) [#/Vol]Ordere d By: John Brandon on 04-03-2025 RBC (Bld) [#/Vol] 3.41 10*6/uL Low 4.6-6.2 [facility] RESPIRATORY PANEL MOLECULARo n 04-03-2025 RP PANEL Normal [facility] Comment on above: Performed By: #### M 100.638 ####[facility] [address] [place], [place], [id number] Respiratory pathogens detect ion panel by molecular detection methodOrdered By: Dyana Hwang on 04-03-2025 Respiratory pathogens DNA and RNA panel ALICE+probe (Resp) [facility] Screening total cholesterol/ high density lipoprotein (HDL) cholesterol ratioOrdered By: Dyana Hwang on 04-03-2025 Cholesterol.total/Cholest santos in HDL [Mass ratio] 2.87 {ratio} [facility] Serum creatinine measurement (mass/volume)Ordered By: John Brandon on 04-03-2025 Creatinine [Mass/Vol] 1.88 mg/dL High 0.70-1.20 [facility] Serum globulin measurementOr dered By: Dyana Hwang on 04-03-2025 Globulin (S) [Mass/Vol] 2.4 g/dL 2.2-4.2 [facility] Serum glucose measurement (m ass/volume)Ordered By: John Brandon on 04-03-2025 Glucose [Mass/Vol] 255 mg/dL High 70-99 [facility] Serum or plasma alanine clayton otransferase (ALT) measurementOrdered By: Dyana Hwang on 04-03-2025 ALT [Catalytic activity/Vol] 16 U/L <47 [facility] Serum or plasma albumin nikkie urement (mass/volume)Ordered By: Dyana Hwang on 04-03-2025 Albumin [Mass/Vol] 3.6 g/dL 3.4-4.8 [facility] Serum or plasma albumin/glob ulin mass ratioOrdered By: Dyana Hwang on 04-03-2025 Albumin/Globulin [Mass ratio] 1.5 {ratio} 0.9-2.4 [facility] Serum or plasma alkaline dwight sphatase measurementOrdered By: Dyana Hwang on 04-03-2025 ALP [Catalytic activity/Vol] 80 U/L 40-129 [facility] Serum or plasma calcium nikkie urement (mass/volume)Ordered By: John Brandon on 04-03-2025 Calcium [Mass/Vol] 8.8 mg/dL 7.6-11.0 [facility] Serum or plasma cholesterol in HDL measurement (mass/volume)Ordered By: Dyana Hwang on 04-03-2025 Cholesterol in HDL [Mass/Vol] 48 mg/dL >40 [facility] Comment on above: National Cholesterol Education Program (NCEP) guidelines:<40 mg/dL: Low HDL-cholesterol (major risk factor for CHD)>= 60 mg/dL: High HDL-cholesterol (negative risk factor for CHD)HDL-cholesterol is affected by a number of factors, e.g. smoking, exercise, hormones, sex and age. Serum or plasma cholesterol measurement (mass/volume)Ordered By: Dyana Hwang on 04-03-2025 Cholesterol [Mass/Vol] 137 mg/dL <201 [facility] Comment on above: Cholesterol level, D esirable <200 mg/dLBorderline high cholesterol 200-239 mg/dLHigh cholesterol >=240 mg/dLRecommendations of the NCEP Adult Treatment Panel for the following risk-cutoff thresholds for the [place] population. Serum or plasma urea nitroge n measurement (mass/volume)Ordered By: John Brandon on 04-03-2025 Urea nitrogen [Mass/Vol] 42 mg/dL High 4-19 [facility] Sodium levelOrdered By: Lesley Brandon on 04-03-2025 Sodium [Moles/Vol] 139 mmol/L 133-145 [facility] Strep pneumoniae Antig(UR,CS F)on 04-03-2025 STPAG Normal [facility] Comment on above: Performed By: #### M 300.4600 ####[facility] [address] [place], [place], [id number] TSH DL <= 0.005 mIU/L QnOrde red By: Dyana Hwang on 04-03-2025 TSH Qn 0.530 uIU/mL 0.300-4.200 [facility] Thyroid Stim Hormone (TSH)on 04-03-2025 TSH 0.530 uIU/mL Normal 0.300-4.200 [facility] Comment on above: Performed By: #### L 509.7001, L500.4100, L500.4050, L501.9520 ####[facility] [address] [place], [place], [id number] Total carbon dioxide measure mentOrdered By: Dyana Hwang on 04-03-2025 CO2 [Moles/Vol] 18 mmol/L [facility] Total proteinOrdered By: Cesilia Hwang on 04-03-2025 Protein [Mass/Vol] 6.0 g/dL 5.9-8.4 [facility] Triglycerides measurementOrd ered By: Dyana Hwang on 04-03-2025 Triglyceride [Mass/Vol] 44 mg/dL <199 [facility] Comment on above: The drugs N-Acetylcy steine and Metamizole may falsely depress this assay. Normal range: <150 mg/dLBorderline High: 150-199 mg/dLHigh: 200-499 mg/dLVery High: >500 mg/dL Troponin T.cardiac [Mass/vol ume] in Serum or Plasma by High sensitivity methodOrdered By: John Brandon on 04-03-2025 Troponin T.cardiac High sensitivity method [Mass/Vol] 80 ng/L High <22 [facility] Comment on above: Critical Result(s) C alled at: 0515 by: DASIA JOSEPH Results read back by same. Troponin T.cardiac High sensitivity method [Mass/Vol] 76 ng/L High <22 [facility] Comment on above: Critical Result(s) C alled at:0312 by: DASIA BOJORQUEZ Results read back by same. Troponin T.cardiac High sensitivity method [Mass/Vol] 58 ng/L High <22 [facility] Comment on above: Critical Result(s) C alled at: 0058 by: DASIA ALBRIGHT Results read back by same. Urine Legionella pneumophila antigen detectionOrdered By: Dyana Hwang on 04-03-2025 L. pneumophila Ag Ql (U) [facility] Urine cultureOrdered By: Cesilia Hwang on 04-03-2025 Bacteria identified Cx Nom (U) Culture exhibits no growth. [facility] Venous Blood Gason Blood Gas Type JUANITA Normal [facility] Comment on above: Performed By: #### L 9000.0810 ####[facility] [address] [place], [address] CO2 [Moles/Vol] 27 mmol/L Normal 23-33 [facility] Comment on above: Performed By: #### L 0.0810 ####[facility] [address] [place], [address] Comment 18. 10. 30% Normal [facility] Comment on above: Performed By: #### L 9000.0810 ####[facility] [address] [place], [address] FI02 30.0 Normal [facility] Comment on above: Performed By: #### L 900.0810 ####[facility] [address] [place], [address] HCO3 (Bld) [Moles/Vol] 26 mmol/L Normal 22-26 [facility] Comment on above: Performed By: #### L 9000.0810 ####[facility] [address] [place], [address] O2 Delivery Dev BiPAP Normal [facility] Comment on above: Performed By: #### L 9000.0810 ####[facility] [address] [place], [address] SITE Not entered Normal [facility] Comment on above: Performed By: #### L 9000.0810 ####[facility] [address] [place], [address] VBG BE 0 mmol/L Normal -1.0-3.5 [facility] Comment on above: Performed By: #### L 9000.0810 ####[facility] [address] [place], [address] VBG pCO2 46.6 mmHg Normal 41-51 [facility] Comment on above: Performed By: #### L 9000.0810 ####[facility] [address] [place], [address] VBG pH 7.35 Normal 7.32-7.42 [facility] Comment on above: Performed By: #### L 9000.0810 ####[facility] [address] [place], [address] VBG PO2 44 mmHg High 25-40 [facility] Comment on above: Performed By: #### L 9000.0810 ####[facility] [address] [place], [address] VBG SO2 76 High 50-70 [facility] Comment on above: Performed By: #### L 9000.0810 ####[facility] [address] [place], [address] Venous blood base excess heriberto surementOrdered By: John Brandon on 04-03-2025 Base excess Calc (BldV) [Moles/Vol] 0 mmol/L -1.0-3.5 [facility] Venous blood bicarbonate heriberto surementOrdered By: John Brandon on 04-03-2025 HCO3 (Bld) [Moles/Vol] 26 mmol/L 22-26 [facility] Venous blood oxygen saturati on measurementOrdered By: John Brandon on 04-03-2025 Oxygen saturation in Blood 76 % High 50-70 [facility] Venous blood pH measurementO rdered By: John Brandon on 04-03-2025 pH (BldV) 7.35 [pH] 7.32-7.42 [facility] Venous blood partial pressur e of carbon dioxide measurementOrdered By: John Brandon on 04-03-2025 CO2 (BldV) [Partial pressure] 46.6 mm[Hg] 41-51 [facility] Venous blood partial pressur e of oxygen measurementOrdered By: John Brandon on 04-03-2025 Oxygen (BldV) [Partial pressure] 44 mm[Hg] High 25-40 [facility] White blood cell (WBC) count Ordered By: John Brandon on 04-03-2025 WBC (Bld) [#/Vol] 15.7 10*3/uL High 4.4-11.0 [facility] BASIC METABOLIC PANEL WITH A NION GAPon 03-24-2025 Calcium [Mass/Vol] 8.6 mg/dL Normal 8.6-10.3 [facility] Comment on above: Performed By: #### 9 4398 #### [facility] [place] [address] [employer]: Jadon Velez MD Chloride [Moles/Vol] 104 mmol/L Normal 98-110 [facility] Comment on above: Performed By: #### 9 5978 #### [facility] [place] [address] [employer]: Jadon Velez MD CO2 [Moles/Vol] 23 mmol/L Normal 20-32 [facility] Comment on above: Performed By: #### 9 2958 #### [facility] [address] [employer]: Jadon Velez MD Creatinine [Mass/Vol] 1.96 mg/dL High 0.70-1.[address] [facility] Comment on above: Performed By: #### 9 2498 #### [facility] [address], [address] [place] [address] [employer]: Jadon Velez MD ELECTROLYTE BALANCE 11 mmol/L (calc) Normal 7-17 [facility] Comment on above: Performed By: #### 9 2498 #### [facility] [address], [address] [place] [address] [employer]: Jadon Velez MD GFR/1.73 sq M.predicted among non-blacks MDRD (S/P/Bld) [Vol rate/Area] 34 mL/min/{1.73_m2} Low > OR = 60 [facility] Comment on above: Performed By: #### 9 2498 #### [facility] [place] [address] [employer]: Jadon Velez MD Glucose [Mass/Vol] 301 mg/dL High 65-99 [facility] Comment on above: Result Comment: Fasting reference interval For someone without known diabetes, a glucose value >125 mg/dL indicates that they may have diabetes and this should be confirmed with a follow-up test. Performed By: #### 9 2498 #### [facility] [address], [address] [place] [address] [employer]: Jadon Velez MD Potassium [Moles/Vol] 4.2 mmol/L Normal 3.5-5.[address] [facility] Comment on above: Performed By: #### 9 2498 #### [facility] [place] [address] [employer]: Jadon Velez MD Sodium [Moles/Vol] 138 mmol/L Normal 135-146 [facility] Comment on above: Performed By: #### 9 5248 #### [facility] [place] [address] [employer]: Jadon Velez MD Urea nitrogen [Mass/Vol] 39 mg/dL High 7-25 [facility] Comment on above: Performed By: #### 9 2498 #### [facility] [address], [address] [place] [id number] [employer]: Jadon Velez MD Urea nitrogen/Creatinine [Mass ratio] 20 mg/mg Normal 6-22 [facility] Comment on above: Performed By: #### 9 2498 #### [facility] [address], [address] [place] [address] [employer]: Jadon Velez MD APTT HEPARIN COVERAGEon 05-0 aPTT Coag (Bld) [Time] 86 s High 23-34 [facility] Comment on above: Order Comment: Thera peutic range for APTT's is 68 - 104 seconds Performed By: #### 4 6848 #### [facility] [address] [place] [address] Moody Martinez M.D. 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 Performed By: #### 4 6124 #### [facility] [address] [place] [address] Moody Martinez M.D. 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 [id number] CBCon 03-05-2025 AUTO NRBC 0.0 % Normal [facility] Comment on above: Performed By: #### 4 5218 #### [facility] [address] [place] [address] Moody Martinez M.D. [id number] AUTO NRBC ABS COUNT 0.00 K/mcL Normal 0.00-0.00 [facility] Comment on above: Performed By: #### 4 5218 #### [facility] [address] [place] [address] Moody Martinez M.D. [id number] Erythrocyte distribution width (RBC) [Ratio] 13.0 % Normal 11.6-14.8 [facility] Comment on above: Performed By: #### 4 5218 #### [facility] [address] [place] [address] Moody Martinez M.D. [id number] Hematocrit (Bld) [Volume fraction] 28.4 % Low 41.0-53.0 [facility] Comment on above: Performed By: #### 4 5218 #### [facility] [address] [place] [address] Moody Martinez M.D. [id number] Hemoglobin (Bld) [Mass/Vol] 9.3 g/dL Low 13.5-17.5 [facility] Comment on above: Performed By: #### 4 5218 #### [facility] [address] [place] [address] Mooyd Martinez M.D. [id number] MCH (RBC) [Entitic mass] 30.3 pg Normal 26.0-34.0 [facility] Comment on above: Performed By: #### 4 5218 #### [facility] [address] [place] [address] Moody Martinez M.D. [id number] MCV (RBC) [Entitic vol] 92.5 fL Normal 80.0-100.0 [facility] Comment on above: Performed By: #### 4 5218 #### [facility] [address] [place] [address] Moody Martinez M.D. [id number] MEAN CORPUSCULAR HEMOGLOBIN CONC 32.7 g/dL Normal 31.0-37.0 [facility] Comment on above: Performed By: #### 4 5218 #### [facility] [address] [place] [address] Moody Martinez M.D. [id number] Platelet mean volume (Bld) [Entitic vol] 11.8 fL Normal 9.4-12.4 [facility] Comment on above: Performed By: #### 4 5218 #### [facility] [address] [place] [address] Moody Martinez M.D. [id number] Platelets (Bld) [#/Vol] 191 10*3/uL Normal 150-400 [facility] Comment on above: Performed By: #### 4 5218 #### [facility] [address] [place] [address] Moody Martinez M.D. [id number] RBC (Bld) [#/Vol] 3.07 10*6/uL Low 4.50-5.90 [facility] Comment on above: Performed By: #### 4 5218 #### [facility] [address] [place] [address] Moody Martinez M.D. [id number] WBC (Bld) [#/Vol] 9.14 10*3/uL Normal 4.50-11.00 [facility] Comment on above: Performed By: #### 4 5218 #### [facility] [address] [place] [address] Moody Martinez M.D. [id number] MAGNESIUM LEVELon 03-05-2025 Magnesium [Mass/Vol] 2.2 mg/dL Normal 1.6-2.4 [facility] Comment on above: Performed By: #### 4 6109 #### [facility] [address] [place] [address] Moody Martinez M.D. [id number] [facility] Glucose [Mass/Vol] 249 mg/dL High [address] [place] [address] Comment on above: Performed By: #### 4 6932 ####[facility] [address] [place] [address] Moody Martinez M.D. [id number] Glucose [Mass/Vol] 188 mg/dL [address] Comment on above: Performed By: #### 4 6932 ####[facility] [address] [place] [address] Moody Martinez M.D. [id number] Glucose [Mass/Vol] 115 mg/dL [address] Comment on above: Performed By: #### 4 6932 ####[facility] [address] [place] [address] Moody Martinez M.D. [id number] POTASSIUM LEVELon 03-05-2025 Potassium [Moles/Vol] 3.4 mmol/L Low 3.5-5.1 [facility] Comment on above: Performed By: #### 4 6351 ####[facility] [address] [place] [address] Moody Martinez M.D. [id number] APTT HEPARIN COVERAGEon aPTT Coag (d) [Time] 72 s High 23-34 [facility] Comment on above: Order Comment: Thera peutic range for APTT's is 68 - 104 seconds Performed By: #### 4 4014 #### [facility] [address] [place] [address] Moody Martinez M.D. [id number] BASIC METABOLIC PANELon 05-0 Anion gap [Moles/Vol] 16 mmol/L Normal 10-20 [facility] Comment on above: Order Comment: [facility] has implemented the eGFR calculation approach that does not have a coefficient for race that conforms to the NKF-ASN Task Force Recommendations. Performed By: #### 4 6124 #### [facility] [address] [place] [address] Moody Martinez M.D. [id number] Calcium [Mass/Vol] 8.3 mg/dL Low 8.4-10.2 [facility] Comment on above: Order Comment: [facility] has implemented the eGFR calculation approach that does not have a coefficient for race that conforms to the NKF-ASN Task Force Recommendations. Performed By: #### 4 6124 #### [facility] [address] [place] [address] Moody aMrtinez M.D. [id number] Chloride [Moles/Vol] 103 mmol/L Normal 98-108 [facility] Comment on above: Order Comment: [facility] has implemented the eGFR calculation approach that does not have a coefficient for race that conforms to the NKF-ASN Task Force Recommendations. Performed By: #### 4 6124 #### [facility] [address] [place], [place] [address] Moody Martinez M.D. [id number] Creatinine [Mass/Vol] 1.89 mg/dL High 0.80-1.30 [facility] Comment on above: Order Comment: [facility] has implemented the eGFR calculation approach that does not have a coefficient for race that conforms to the NKF-ASN Task Force Recommendations. Performed By: #### 4 6124 #### [facility] [address] [place] [address] Moody Martinez M.D. [id number] EGFR 35 mL/min/1.73 m2 Low >=60 [facility] Comment on above: Order Comment: [facility] has implemented the eGFR calculation approach that does not have a coefficient for race that conforms to the NKF-ASN Task Force Recommendations. Result Comment: Albin mated GFR was calculated using the 2020 CKD-EPI creatinine equation. Performed By: #### 4 6119 #### [facility] [address] [place] [address] Moody Martinez M.D. [id number] Glucose [Mass/Vol] 190 mg/dL High 65-99 [facility] Comment on above: Order Comment: [facility] has implemented the eGFR calculation approach that does not have a coefficient for race that conforms to the NKF-ASN Task Force Recommendations. Performed By: #### 4 6124 #### [facility] [address] [place] [address] Moody Martinez M.D. [id number] HCO3 (Bld) [Moles/Vol] 25 mmol/L Normal 21-32 [facility] Comment on above: Order Comment: [facility] has implemented the eGFR calculation approach that does not have a coefficient for race that conforms to the NKF-ASN Task Force Recommendations. Performed By: #### 4 6124 #### [facility] [address] [place] [address] Moody Martinez M.D. [id number] Potassium [Moles/Vol] 3.5 mmol/L Normal 3.5-5.1 [facility] Comment on above: Order Comment: [facility] has implemented the eGFR calculation approach that does not have a coefficient for race that conforms to the NKF-ASN Task Force Recommendations. Performed By: #### 4 6124 #### [facility] [address] [place] [address] Moody Martinez M.D. [id number] Sodium [Moles/Vol] 140 mmol/L Normal 135-145 [facility] Comment on above: Order Comment: [facility] has implemented the eGFR calculation approach that does not have a coefficient for race that conforms to the NKF-ASN Task Force Recommendations. Performed By: #### 4 6124 #### [facility] [address] [place] [address] Moody Martinez M.D. [id number] Urea nitrogen [Mass/Vol] 45 mg/dL High 8-25 [facility] Comment on above: Order Comment: [facility] has implemented the eGFR calculation approach that does not have a coefficient for race that conforms to the NKF-ASN Task Force Recommendations. Performed By: #### 4 6124 #### [facility] [address] [place] [address] Moody Martinez M.D. [id number] Urea nitrogen/Creatinine [Mass ratio] 23.8 mg/mg High 10.0-20.0 [facility] Comment on above: Order Comment: [facility] has implemented the eGFR calculation approach that does not have a coefficient for race that conforms to the NKF-ASN Task Force Recommendations. Performed By: #### 4 6124 #### [facility] [address] [place] [address] Moody Martinez M.D. [id number] CBCon 03-04-2025 AUTO NRBC 0.0 % Normal [facility] Comment on above: Performed By: #### 4 5218 #### [facility] [address] [place] [address] Moody Martinez M.D. [id number] AUTO NRBC ABS COUNT 0.00 K/mcL Normal 0.00-0.00 [facility] Comment on above: Performed By: #### 4 5218 #### [facility] [address] [place] [address] Moody Martinez M.D. [id number] Erythrocyte distribution width (RBC) [Ratio] 13.1 % Normal 11.6-14.8 [facility] Comment on above: Performed By: #### 4 5218 #### [facility] [address] [place] [id number] Moody Martinez M.D. [id number] Hematocrit (Bld) [Volume fraction] 28.1 % Low 41.0-53.0 [facility] Comment on above: Performed By: #### 4 5218 #### [facility] [address] [place] [address] Moody Martinez M.D. [id number] Hemoglobin (Bld) [Mass/Vol] 9.0 g/dL Low 13.5-17.5 [facility] Comment on above: Performed By: #### 4 5218 #### [facility] [address] [place] [address] Moody Martinez M.D. [id number] MCH (RBC) [Entitic mass] 30.6 pg Normal 26.0-34.0 [facility] Comment on above: Performed By: #### 4 5218 #### [facility] [address] [place] [address] Moody Martinez M.D. [id number] MCV (RBC) [Entitic vol] 95.6 fL Normal 80.0-100.0 [facility] Comment on above: Performed By: #### 4 5218 #### [facility] [address] [place] [address] Moody Martinez M.D. [id number] MEAN CORPUSCULAR HEMOGLOBIN CONC 32.0 g/dL Normal 31.0-37.0 [facility] Comment on above: Performed By: #### 4 5218 #### [facility] [address] [place] [address] Moody Martinez M.D. [id number] Platelet mean volume (Bld) [Entitic vol] 11.8 fL Normal 9.4-12.4 [facility] Comment on above: Performed By: #### 4 5218 #### [facility] [address] [place] [address] Moody Martinez M.D. [id number] Platelets (Bld) [#/Vol] 175 10*3/uL Normal 150-400 [facility] Comment on above: Performed By: #### 4 5218 #### [facility] [address] [place] [address] Moody Martinez M.D. [id number] RBC (Bld) [#/Vol] 2.94 10*6/uL Low 4.50-5.90 [facility] Comment on above: Performed By: #### 4 5218 #### [facility] [address] [place] [id number] Moody Martinez M.D. [id number] WBC (Bld) [#/Vol] 8.08 10*3/uL Normal 4.50-11.00 [facility] Comment on above: Performed By: #### 4 5218 #### [facility] [address] [place] [address] Moody Martinez M.D. [id number] MAGNESIUM LEVELon 03-04-2025 Magnesium [Mass/Vol] 2.2 mg/dL Normal 1.6-2.4 [facility] Comment on above: Performed By: #### 4 6109 ####[facility] [address] [place] [address] Moody Martinez M.D. [id number] POC GLUCOSE - [facility] 025 Glucose [Mass/Vol] 51 mg/dL Off scale low [address] [place] [address] Comment on above: Order Comment: Criti christian result acted upon time of test. Test performed at bedside. Performed By: #### 4 6932 #### [facility] [address] [place] [address] Moody Martinez M.D. [id number] Glucose [Mass/Vol] 354 mg/dL [address] Comment on above: Performed By: #### 4 6932 #### [facility] [address] [place] [address] Moody Martinez M.D. [id number] Glucose [Mass/Vol] 338 mg/dL [address] Comment on above: Performed By: #### 4 6932 #### [facility] [address] [place] [address] Moody Martinez M.D. [id number] Glucose [Mass/Vol] 258 mg/dL [address] Comment on above: Performed By: #### 4 6932 #### [facility] [address] [place] [address] Moody Martinez M.D. [id number] Glucose [Mass/Vol] 242 mg/dL High 65-99 [facility] Comment on above: Performed By: #### 4 6932 #### [facility] [address] [place] [address] Moody Martinez M.D. [id number] POTASSIUM LEVELon 03-04-2025 Potassium [Moles/Vol] 4.1 mmol/L Normal 3.5-5.1 [facility] Comment on above: Result Comment: Slig htly Hemolyzed Performed By: #### 4 6351 ####[facility] [address] [place] [address] Moody Martinez M.D. [id number] TROPONIN (ONCE)on 03-04-2025 BASELINE TROPONIN T NG/L 1494 ng/L Off scale high <=22 [facility] Comment on above: Performed By: #### L [id number] ####[facility] [address] [place] [address] Moody Martinez M.D. [id number] TROPONIN T INTERPRETATION Possible acute cardiac injury. Normal [facility] Comment on above: Performed By: #### L [id number] ####[facility] [address] [place] [address] Moody Martinez M.D. [id number] APTT HEPARIN COVERAGEon aPTT Coag (Bld) [Time] 82 s High 23-34 [facility] Comment on above: Order Comment: Thera peutic range for APTT's is 68 - 104 seconds Performed By: #### 4 6932 #### [facility] [address] [place] [address] Moody Martinez M.D. [id number] aPTT Coag (Bld) [Time] 92 s High 23-34 [facility] Comment on above: Order Comment: Thera peutic range for APTT's is 68 - 104 seconds Performed By: #### 4 6848 ####[facility] [address] [place] [address] Moody Martinez M.D. [id number] aPTT Coag (Bld) [Time] 67 s High 23-34 [facility] Comment on above: Order Comment: Injur y/Trauma or Illness?:Illness/Other How long have you had these symptoms (acute/chronic)?:Acute Reason for exam?:cross clamp of aorta for CPB Type of Exam?:Initial Additional signs and symptoms?:cp Performed By: #### 4 6848 #### [facility] [address] [place], [place] [address] Moody Martinez M.D. [id number] BASIC METABOLIC PANELon 05-0 Anion gap [Moles/Vol] 15 mmol/L Normal 10-20 [facility] Comment on above: Order Comment: [facility] has implemented the eGFR calculation approach that does not have a coefficient for race that conforms to the NKF-ASN Task Force Recommendations. Performed By: #### 4 6124 #### LAB [address] [place] [address] Moody Martinez M.D. [id number] Calcium [Mass/Vol] 8.3 mg/dL Low 8.4-10.2 [facility] Comment on above: Order Comment: [facility] has implemented the eGFR calculation approach that does not have a coefficient for race that conforms to the NKF-ASN Task Force Recommendations. Performed By: #### 4 6124 #### LAB [address] [place], [place] [address] Moody Martinez M.D. [id number] Chloride [Moles/Vol] 103 mmol/L Normal 98-108 [facility] Comment on above: Order Comment: [facility] has implemented the eGFR calculation approach that does not have a coefficient for race that conforms to the NKF-ASN Task Force Recommendations. Performed By: #### 4 6124 #### LAB [address] [address] Moody Martinez M.D. [id number] Creatinine [Mass/Vol] 2.09 mg/dL High 0.80-1.30 [facility] Comment on above: Order Comment: [facility] has implemented the eGFR calculation approach that does not have a coefficient for race that conforms to the NKF-ASN Task Force Recommendations. Performed By: #### 4 6124 #### LAB [address] [address] Moody Martinez M.D. [id number] EGFR 31 mL/min/1.73 m2 Low >=60 [facility] Comment on above: Order Comment: [facility] has implemented the eGFR calculation approach that does not have a coefficient for race that conforms to the NKF-ASN Task Force Recommendations. Result Comment: Albin mated GFR was calculated using the 2020 CKD-EPI creatinine equation. Performed By: #### 4 6124 #### LAB [address] [address] Moody Martinez M.D. [id number] Glucose [Mass/Vol] 240 mg/dL High 65-99 [facility] Comment on above: Order Comment: [facility] has implemented the eGFR calculation approach that does not have a coefficient for race that conforms to the NKF-ASN Task Force Recommendations. Performed By: #### 4 6124 #### LAB [address] [address] Moody Martinez M.D. [id number] HCO3 (Bld) [Moles/Vol] 26 mmol/L Normal 21-32 [facility] Comment on above: Order Comment: [facility] has implemented the eGFR calculation approach that does not have a coefficient for race that conforms to the NKF-ASN Task Force Recommendations. Performed By: #### 4 6124 #### LAB [address] [place] [address] Moody Martinez M.D. [id number] Potassium [Moles/Vol] 3.6 mmol/L Normal 3.5-5.1 [facility] Comment on above: Order Comment: [facility] has implemented the eGFR calculation approach that does not have a coefficient for race that conforms to the NKF-ASN Task Force Recommendations. Performed By: #### 4 6124 #### LAB [address] [place] [address] Moody Martinez M.D. [id number] Sodium [Moles/Vol] 140 mmol/L Normal 135-145 [facility] Comment on above: Order Comment: [facility] has implemented the eGFR calculation approach that does not have a coefficient for race that conforms to the NKF-ASN Task Force Recommendations. Performed By: #### 4 6124 #### LAB [address] [place] [address] Moody Martinez M.D. [id number] Urea nitrogen [Mass/Vol] 49 mg/dL High 8-25 [facility] Comment on above: Order Comment: [facility] has implemented the eGFR calculation approach that does not have a coefficient for race that conforms to the NKF-ASN Task Force Recommendations. Performed By: #### 4 6124 #### LAB [address] [place] [address] Moody Martinez M.D. [id number] Urea nitrogen/Creatinine [Mass ratio] 23.4 mg/mg High 10.0-20.0 [facility] Comment on above: Order Comment: [facility] has implemented the eGFR calculation approach that does not have a coefficient for race that conforms to the NKF-ASN Task Force Recommendations. Performed By: #### 4 6124 #### LAB [address] [place] [address] Moody Martinez M.D. [id number] CBCon 03-03-2025 AUTO NRBC 0.0 % Normal [facility] Comment on above: Performed By: #### 4 [id number] #### LAB [address] [place] [address] Moody Martinez M.D. [id number] AUTO NRBC ABS COUNT 0.00 K/mcL Normal 0.00-0.00 [facility] Comment on above: Performed By: #### 4 [id number] #### LAB [address] [place] [address] Moody Martinez M.D. [id number] Erythrocyte distribution width (RBC) [Ratio] 13.5 % Normal 11.6-14.8 [facility] Comment on above: Performed By: #### 4 5218 #### LAB [address] [place] [address] Moody Martinez M.D. [id number] Hematocrit (Bld) [Volume fraction] 28.5 % Low 41.0-53.0 [facility] Comment on above: Performed By: #### 4 5218 #### LAB [address] [address] Moody Martinez M.D. [id number] Hemoglobin (Bld) [Mass/Vol] 9.3 g/dL Low 13.5-17.5 [facility] Comment on above: Performed By: #### 4 5218 #### LAB [address] [place] [address] Moody Martinez M.D. [id number] MCH (RBC) [Entitic mass] 30.8 pg Normal 26.0-34.0 [facility] Comment on above: Performed By: #### 4 5218 #### LAB [address] [place] [address] Moody Martinez M.D. [id number] MCV (RBC) [Entitic vol] 94.4 fL Normal 80.0-100.0 [facility] Comment on above: Performed By: #### 4 5218 #### LAB [address] [place] [address] Moody Martinez M.D. [id number] MEAN CORPUSCULAR HEMOGLOBIN CONC 32.6 g/dL Normal 31.0-37.0 [facility] Comment on above: Performed By: #### 4 5218 #### LAB [address] [place] [address] Moody Martinez M.D. [id number] Platelet mean volume (Bld) [Entitic vol] 11.8 fL Normal 9.4-12.4 [facility] Comment on above: Performed By: #### 4 5218 #### LAB [address] [place] [address] Moody Martinez M.D. [id number] Platelets (Bld) [#/Vol] 159 10*3/uL Normal 150-400 [facility] Comment on above: Performed By: #### 4 5218 ####[facility] LAB [address] [place] [address] Moody Martinez M.D. [id number] RBC (Bld) [#/Vol] 3.02 10*6/uL Low 4.50-5.90 [facility] Comment on above: Performed By: #### 4 5218 ####[facility] LAB [address] [address] Moody Martinez M.D. [id number] WBC (Bld) [#/Vol] 10.19 10*3/uL Normal 4.50-11.00 [facility] Comment on above: Performed By: #### 4 5218 ####[facility] [address] [address] Moody Martinez M.D. [id number] MAGNESIUM LEVELon 03-03-2025 Magnesium [Mass/Vol] 2.3 mg/dL Normal 1.6-2.4 [facility] Comment on above: Performed By: #### 4 6109 ####[facility] LAB [address] [place] [address] Moody Martinez M.D. [id number] POC GLUCOSE [facility] 025 Glucose [Mass/Vol] 221 mg/dL High [address] [place] [address] Comment on above: Performed By: #### L [id number] #### [facility] LAB [address] [address] Moody Martinez M.D. [id number] Glucose [Mass/Vol] 189 mg/dL High [address] [place] [address] Comment on above: Performed By: #### 4 6932 ####[facility] LAB [address] [place] [address] Moody Martinez M.D. [id number] Glucose [Mass/Vol] 91 mg/dL Normal [address] [place] [address] Comment on above: Performed By: #### 4 6932 ####[facility] LAB [address] [place] [address] Moody Martinez M.D. [id number] Glucose [Mass/Vol] 146 mg/dL High 65-99 [facility] Comment on above: Performed By: #### 4 6932 #### LAB [address] [place] [address] Moody Martinez M.D. [id number] TROPONIN (ONCE)on 03-03-2025 BASELINE TROPONIN T NG/L 1524 ng/L Off scale high <=22 [facility] Comment on above: Performed By: #### 4 6932 #### LAB [address] [place] [address] Moody Martinez M.D. [id number] TROPONIN T INTERPRETATION Possible acute cardiac injury. Normal [facility] Comment on above: Performed By: #### 4 6932 #### LAB [address] [place] [address] Moody Martinez M.D. [id number] APTT HEPARIN COVERAGEon aPTT Coag (d) [Time] 97 s High 23-34 [facility] Comment on above: Order Comment: Thera peutic range for APTT's is 68 - 104 seconds Performed By: #### 4 6848 #### LAB [address] [place] [address] Moody Martinez M.D. [id number] BASIC METABOLIC PANELon Anion gap [Moles/Vol] 17 mmol/L Normal 10-20 [facility] Comment on above: Order Comment: [facility] has implemented the eGFR calculation approach that does not have a coefficient for race that conforms to the NKF-ASN Task Force Recommendations. Performed By: #### 4 6124 ####[facility] LAB [address] [place] [address] Moody Martinez M.D. [id number] Calcium [Mass/Vol] 8.7 mg/dL Normal 8.4-10.2 [facility] Comment on above: Order Comment: [facility] has implemented the eGFR calculation approach that does not have a coefficient for race that conforms to the NKF-ASN Task Force Recommendations. Performed By: #### 4 6124 #### LAB [address] [place] [id number] Moody Martinez M.D. [id number] Chloride [Moles/Vol] 101 mmol/L Normal 98-108 [facility] Comment on above: Order Comment: [facility] has implemented the eGFR calculation approach that does not have a coefficient for race that conforms to the NKF-ASN Task Force Recommendations. Performed By: #### 4 6124 ####[facility] LAB [address] [place] [address] Moody Martinez M.D. [id number] Creatinine [Mass/Vol] 2.16 mg/dL High 0.80-1.30 [facility] Comment on above: Order Comment: [facility] has implemented the eGFR calculation approach that does not have a coefficient for race that conforms to the NKF-ASN Task Force Recommendations. Performed By: #### 4 6124 #### LAB [address] [place] [address] Moody Martinez M.D. [id number] EGFR 30 mL/min/1.73 m2 Low >=60 [facility] Comment on above: Order Comment: [facility] has implemented the eGFR calculation approach that does not have a coefficient for race that conforms to the NKF-ASN Task Force Recommendations. Result Comment: Albin mated GFR was calculated using the 2020 CKD-EPI creatinine equation. Performed By: #### 4 6124 ####[facility] LAB [address] [place] [address] Moody Martinez M.D. [id number] Glucose [Mass/Vol] 170 mg/dL High 65-99 [facility] Comment on above: Order Comment: [facility] has implemented the eGFR calculation approach that does not have a coefficient for race that conforms to the NKF-ASN Task Force Recommendations. Performed By: #### 4 6124 ####[facility] LAB [address] [place] [address] Moody Martinez M.D. [id number] HCO3 (Bld) [Moles/Vol] 25 mmol/L Normal 21-32 [facility] Comment on above: Order Comment: [facility] has implemented the eGFR calculation approach that does not have a coefficient for race that conforms to the NKF-ASN Task Force Recommendations. Performed By: #### 4 6124 #### LAB [address] [place], [place] [address] Moody Martinez M.D. [id number] Potassium [Moles/Vol] 3.7 mmol/L Normal 3.5-5.1 [facility] Comment on above: Order Comment: [facility] has implemented the eGFR calculation approach that does not have a coefficient for race that conforms to the NKF-ASN Task Force Recommendations. Performed By: #### 4 6124 #### LAB [address] [place] [address] Moody Martinez M.D. [id number] Sodium [Moles/Vol] 139 mmol/L Normal 135-145 [facility] Comment on above: Order Comment: [facility] has implemented the eGFR calculation approach that does not have a coefficient for race that conforms to the NKF-ASN Task Force Recommendations. Performed By: #### 4 6134 #### LAB [address] [place] [address] Moody Martinez M.D. [id number] Urea nitrogen [Mass/Vol] 44 mg/dL High 8-25 [facility] Comment on above: Order Comment: [facility] has implemented the eGFR calculation approach that does not have a coefficient for race that conforms to the NKF-ASN Task Force Recommendations. Performed By: #### 4 6109 ####[facility] LAB [address] [place] [address] Moody Martinez M.D. [id number] Urea nitrogen/Creatinine [Mass ratio] 20.4 mg/mg High 10.0-20.0 [facility] Comment on above: Order Comment: [facility] has implemented the eGFR calculation approach that does not have a coefficient for race that conforms to the NKF-ASN Task Force Recommendations. Performed By: #### 4 6133 ####[facility] LAB [address] [place], [place] [address] Moody Martinez M.D. [id number] CBCon 03-02-2025 AUTO NRBC 0.0 % Normal [facility] Comment on above: Order Comment: Injur y/Trauma or Illness?:Illness/Other How long have you had these symptoms (acute/chronic)?:Acute Reason for exam?:sob History of cancer?:. Surgeries, chemotherapy, or radiation?:cardiac catheterization Type of Exam?:Initial Additional signs and symptoms?:n Performed By: #### 4 5218 #### LAB [address] [place], [place] [address] Moody Martinez M.D. [id number] AUTO NRBC ABS COUNT 0.00 K/mcL Normal 0.00-0.00 [facility] Comment on above: Order Comment: Injur y/Trauma or Illness?:Illness/Other How long have you had these symptoms (acute/chronic)?:Acute Reason for exam?:sob History of cancer?:. Surgeries, chemotherapy, or radiation?:cardiac catheterization Type of Exam?:Initial Additional signs and symptoms?:n Performed By: #### 4 5218 #### LAB [address] [place], [place] [address] Moody Martinez M.D. [id number] Erythrocyte distribution width (RBC) [Ratio] 13.4 % Normal 11.6-14.8 [facility] Comment on above: Order Comment: Injur y/Trauma or Illness?:Illness/Other How long have you had these symptoms (acute/chronic)?:Acute Reason for exam?:sob History of cancer?:. Surgeries, chemotherapy, or radiation?:cardiac catheterization Type of Exam?:Initial Additional signs and symptoms?:n Performed By: #### 4 5218 #### LAB [address] [place] [address] Moody Martinez M.D. [id number] Hematocrit (Bld) [Volume fraction] 31.3 % Low 41.0-53.0 [facility] Comment on above: Order Comment: Injur y/Trauma or Illness?:Illness/Other How long have you had these symptoms (acute/chronic)?:Acute Reason for exam?:sob History of cancer?:. Surgeries, chemotherapy, or radiation?:cardiac catheterization Type of Exam?:Initial Additional signs and symptoms?:n Performed By: #### 4 5218 #### LAB [address] [place] [address] Moody Martinez M.D. [id number] Hemoglobin (Bld) [Mass/Vol] 10.3 g/dL Low 13.5-17.5 [facility] Comment on above: Order Comment: Injur y/Trauma or Illness?:Illness/Other How long have you had these symptoms (acute/chronic)?:Acute Reason for exam?:sob History of cancer?:. Surgeries, chemotherapy, or radiation?:cardiac catheterization Type of Exam?:Initial Additional signs and symptoms?:n Performed By: #### 4 5218 #### LAB [address] [place] [address] Moody Martinez M.D. [id number] MCH (RBC) [Entitic mass] 31.0 pg Normal 26.0-34.0 [facility] Comment on above: Order Comment: Injur y/Trauma or Illness?:Illness/Other How long have you had these symptoms (acute/chronic)?:Acute Reason for exam?:sob History of cancer?:. Surgeries, chemotherapy, or radiation?:cardiac catheterization Type of Exam?:Initial Additional signs and symptoms?:n Performed By: #### 4 5218 #### LAB [address] [place] [address] Moody Martinez M.D. [id number] MCV (RBC) [Entitic vol] 94.3 fL Normal 80.0-100.0 [facility] Comment on above: Order Comment: Injur y/Trauma or Illness?:Illness/Other How long have you had these symptoms (acute/chronic)?:Acute Reason for exam?:sob History of cancer?:. Surgeries, chemotherapy, or radiation?:cardiac catheterization Type of Exam?:Initial Additional signs and symptoms?:n Performed By: #### 4 5218 #### LAB [address] [place] [address] Moody Martinez M.D. [id number] MEAN CORPUSCULAR HEMOGLOBIN CONC 32.9 g/dL Normal 31.0-37.0 [facility] Comment on above: Order Comment: Injur y/Trauma or Illness?:Illness/Other How long have you had these symptoms (acute/chronic)?:Acute Reason for exam?:sob History of cancer?:. Surgeries, chemotherapy, or radiation?:cardiac catheterization Type of Exam?:Initial Additional signs and symptoms?:n Performed By: #### 4 5218 #### LAB [address] [place] [address] Moody Martinez M.D. [id number] Platelet mean volume (Bld) [Entitic vol] 11.6 fL Normal 9.4-12.4 [facility] Comment on above: Order Comment: Injur y/Trauma or Illness?:Illness/Other How long have you had these symptoms (acute/chronic)?:Acute Reason for exam?:sob History of cancer?:. Surgeries, chemotherapy, or radiation?:cardiac catheterization Type of Exam?:Initial Additional signs and symptoms?:n Performed By: #### 4 5218 #### LAB [address] [place] [address] Moody Martinez M.D. [id number] Platelets (Bld) [#/Vol] 176 10*3/uL Normal 150-400 [facility] Comment on above: Order Comment: Injur y/Trauma or Illness?:Illness/Other How long have you had these symptoms (acute/chronic)?:Acute Reason for exam?:sob History of cancer?:. Surgeries, chemotherapy, or radiation?:cardiac catheterization Type of Exam?:Initial Additional signs and symptoms?:n Performed By: #### 4 5218 #### LAB [address] [place] [address] Moody Martinez M.D. [id number] RBC (Bld) [#/Vol] 3.32 10*6/uL Low 4.50-5.90 [facility] Comment on above: Order Comment: Injur y/Trauma or Illness?:Illness/Other How long have you had these symptoms (acute/chronic)?:Acute Reason for exam?:sob History of cancer?:. Surgeries, chemotherapy, or radiation?:cardiac catheterization Type of Exam?:Initial Additional signs and symptoms?:n Performed By: #### 4 5218 #### LAB [address] [place] [address] Moody Martinez M.D. [id number] WBC (Bld) [#/Vol] 14.08 10*3/uL High 4.50-11.00 [facility] Comment on above: Order Comment: Injur y/Trauma or Illness?:Illness/Other How long have you had these symptoms (acute/chronic)?:Acute Reason for exam?:sob History of cancer?:. Surgeries, chemotherapy, or radiation?:cardiac catheterization Type of Exam?:Initial Additional signs and symptoms?:n Performed By: #### 4 5218 #### LAB [address] [place] [address] Moody Martinez M.D. [id number] AUTO NRBC 0.0 % Normal [facility] Comment on above: Performed By: #### 4 5218 #### LAB [address] [place] [address] Moody Martinez M.D. [id number] AUTO NRBC ABS COUNT 0.00 K/mcL Normal 0.00-0.00 [facility] Comment on above: Performed By: #### 4 5218 #### LAB [address] [place] [address] Moody Martinez M.D. [id number] Erythrocyte distribution width (RBC) [Ratio] 13.4 % Normal 11.6-14.8 [facility] Comment on above: Performed By: #### 4 5218 #### LAB [address] [place] [address] Moody Martinez M.D. [id number] Hematocrit (Bld) [Volume fraction] 34.4 % Low 41.0-53.0 [facility] Comment on above: Performed By: #### 4 5218 #### LAB [address] [place] [address] Moody Martinez M.D. [id number] Hemoglobin (Bld) [Mass/Vol] 11.2 g/dL Low 13.5-17.5 [facility] Comment on above: Performed By: #### 4 5218 #### LAB [address] [place] [address] Moody Martinez M.D. [id number] MCH (RBC) [Entitic mass] 31.1 pg Normal 26.0-34.0 [facility] Comment on above: Performed By: #### 4 5218 #### LAB [address] [place] [address] Moody Martinez M.D. [id number] MCV (RBC) [Entitic vol] 95.6 fL Normal 80.0-100.0 [facility] Comment on above: Performed By: #### 4 5218 #### LAB [address] [place] [address] Moody Martinez M.D. [id number] MEAN CORPUSCULAR HEMOGLOBIN CONC 32.6 g/dL Normal 31.0-37.0 [facility] Comment on above: Performed By: #### 4 5218 #### LAB [address] [place] [address] Moody Martinez M.D. [id number] Platelet mean volume (Bld) [Entitic vol] 11.4 fL Normal 9.4-12.4 [facility] Comment on above: Performed By: #### 4 5218 #### LAB [address] [place] [address] Moody Martinez M.D. [id number] Platelets (Bld) [#/Vol] 189 10*3/uL Normal 150-400 [facility] Comment on above: Performed By: #### 4 5218 #### LAB [address] [place] [address] Moody Martinez M.D. [id number] RBC (Bld) [#/Vol] 3.60 10*6/uL Low 4.50-5.90 [facility] Comment on above: Performed By: #### 4 5218 #### LAB [address] [place] [address] Moody Martinez M.D. [id number] WBC (Bld) [#/Vol] 11.96 10*3/uL High 4.50-11.00 [facility] Comment on above: Performed By: #### 4 5218 ####[facility] LAB [address] [place], [place] [address] Moody Martinez M.D. [id number] CONSULTon 03-02-2025 CONSULT General Cardiology Inpatient Consult Heart & Vascular [facility] 03/02/2025 Diogenes Garay MD [facility] Patient: Enoc Armando Date of : [...] plan for further details. Diogenes Garay MD [facility] Non-Invasive Cardiology [facility] Heart and Vascular Subjective Reason for [...] mmHg. 10/27/24 [facility] Left Main The vessel is moderate in [...] (more content not included)... Normal [facility] ECHOCARDIOGRAM COMPLETEon ECHOCARDIOGRAM COMPLETE Patient Info Name: ENOC ARMANDO Age: 79 years : 1945 Gender: Male Ht: 170 cm Wt: 64 kg BSA: 1.74 m2 HR: 81 bpm BP: 112 / 57 mmHg Heart Rhythm: Sinus Rhythm Technical Quality: Good Exam Date: 03/02/2025 2:27 PM Patient Status: Inpatient Remote Pilot Operator: Mikel Olvera RCDS Exam Type: ECHOCARDIOGRAM COMPLETE Study Info Indications - Chest pain R07.9 - Chest pain, unspecified Referring Physician: TANISHA Alves; [id number] BMI: 22.08 kg/m2 Summary 1. Left ventricular [...] Factors Hypertension: Yes Dyslipidemia: Yes Myocardial Infarction (MA): No Congestive Heart Failure (CHF): Hx CHF [...] mmHg MV VTI 35 cm MV Decel [place] 390 cm/s2 MV PHT 75 ms MV [...] (more content not included)... Normal [facility] MAGNESIUM LEVELon 03-02-2025 Magnesium [Mass/Vol] 2.2 mg/dL Normal 1.6-2.4 [facility] Comment on above: Performed By: #### 4 6109 ####[facility] LAB [address] [place] [address] Moody Martinez M.D. [id number] NT PRO BNPon 03-02-2025 Natriuretic peptide B (Bld) [Mass/Vol] 14639 pg/mL High 0-300 [facility] Comment on above: Order Comment: Pride Study Cut-offsRule In:< /= 50 Years >450 pg/mL51 Years - 75 Years >900 pg/mL76 Years - 99 Years >1800 pg/mLRule Out:All patients <300 pg/mL Performed By: #### 4 7395 #### LAB [address] [place], [place] [address] Moody Martinez M.D. [id number] POC GLUCOSE [facility] 025 Glucose [Mass/Vol] 287 mg/dL [address] Comment on above: Performed By: #### 4 6932 ####[facility] LAB [address] [place] [address] Moody Martinez M.D. [id number] Glucose [Mass/Vol] 137 mg/dL [address] Comment on above: Performed By: #### 4 6932 ####[facility] LAB [address] [place] [address] Moody Martinez M.D. [id number] Glucose [Mass/Vol] 252 mg/dL [address] Comment on above: Performed By: #### 4 6932 ####[facility] [address] [place] [address] Moody Martinez M.D. [id number] Glucose [Mass/Vol] 332 mg/dL [address] Comment on above: Performed By: #### 4 6932 #### LAB [address] [place] [address] Moody Martinez M.D. [id number] Glucose [Mass/Vol] 286 mg/dL [address] Comment on above: Performed By: #### 4 6932 ####[facility] [address] [place] [address] Moody Martinez M.D. [id number] Glucose [Mass/Vol] 168 mg/dL [address] Comment on above: Performed By: #### L [id number] #### [facility] [address] [place] [address] Moody Martinez M.D. [id number] Glucose [Mass/Vol] 186 mg/dL High 65-99 [facility] Comment on above: Performed By: #### 4 6932 #### LAB [address] [place] [address] Moody Martinez M.D. [id number] POTASSIUM LEVELon 03-02-2025 Potassium [Moles/Vol] 3.9 mmol/L Normal 3.5-5.1 [facility] Comment on above: Performed By: #### 4 6351 #### LAB [address] [place] [address] Moody Martinez M.D. [id number] TROPONIN X 2 (NOW AND REPEAT IN 2 HOURS)on 03-02-2025 TROPONIN T DELTA CHANGE INTERPRETATION Delta troponin requires at least 2 hours between collections. [facility] Comment on above: Performed By: #### 4 6608 #### LAB [address] [place] [address] Moody Martinez M.D. [id number] TROPONIN T NG/L 1447 ng/L Off scale high <=22 [facility] Comment on above: Performed By: #### 4 6608 #### LAB [address] [address] Moody Martinez M.D. [id number] BASELINE TROPONIN T NG/L 1309 ng/L Off scale high <=22 [facility] Comment on above: Performed By: #### 4 6608 #### LAB [address] [address] Moody Martinez M.D. [id number] TROPONIN T INTERPRETATION Possible acute cardiac injury. [facility] Comment on above: Performed By: #### 4 6608 #### LAB [address] [address] Moody Martinez M.D. [id number] XR CHEST PA/APon 03-02-2025 XR CHEST PA/AP [...] organism, unspecified whether acute organ dysfunction present ([facility]) J18.9 Pneumonia E11.10 DKA (diabetic ketoacidosis) ([facility]) COMPARISON: 02/28/2025. TECHNIQUE: Single portable semierect view. FINDINGS: Cardiac silhouette and mediastinal contours are stable. No pneumothorax or large pleural effusion. There is development of hsoairhw-kz-orqlci bilateral mixed interstitial and alveolar opacities in both lungs consistent with pulmonary edema; although, underlying pneumonia/aspiration is not excluded. IMPRESSION: Development of fzzbiutg-ur-qjmhpr mixed interstitial and alveolar opacities in both lungs consistent with pulmonary edema. Underlying pneumonia/aspiration not excluded. No pneumothorax or large pleural effusion. JAR/trw Workstation ID: [id number] Dictated by: KAHLIL VARGHESE on WedMarch 02, 2025 2:36:56 PM EDT Transcribed by: AFUA RALPH on WedMarch 02, 2025 3:15:52 PM EDT Finalized by: KAHLIL VARGHESE on WedMarch 02, 2025 3:23:59 PM EDT Normal [facility] Comment on above: Order Comment: Injur y/Trauma or Illness?:Illness/OtherHow long have you had these symptoms (acute/chronic)?:AcuteReason for exam?:SOBHistory of cancer?:.Surgeries, chemotherapy, or radiation?:cardiac catheterizationType of Exam?:InitialAdditional signs and symptoms?:. BASIC METABOLIC PANELon 05-0 Anion gap [Moles/Vol] 15 mmol/L Normal 10-20 [facility] Comment on above: Order Comment: [facility] has implemented the eGFR calculation approach that does not have a coefficient for race that conforms to the NKF-ASN Task Force Recommendations. Performed By: #### 4 6124 ####[facility] [address] [place], [place] [address] Moody Martinez M.D. [id number] Calcium [Mass/Vol] 8.7 mg/dL Normal 8.4-10.2 [facility] Comment on above: Order Comment: [facility] has implemented the eGFR calculation approach that does not have a coefficient for race that conforms to the NKF-ASN Task Force Recommendations. Performed By: #### 4 6124 #### LAB [address] [place], [place] [address] Moody Martinez M.D. [id number] Chloride [Moles/Vol] 104 mmol/L Normal 98-108 [facility] Comment on above: Order Comment: [facility] has implemented the eGFR calculation approach that does not have a coefficient for race that conforms to the NKF-ASN Task Force Recommendations. Performed By: #### 4 6124 #### LAB [address] [id number] Moody Martinez M.D. [id number] Creatinine [Mass/Vol] 2.49 mg/dL High 0.80-1.30 [facility] Comment on above: Order Comment: [facility] has implemented the eGFR calculation approach that does not have a coefficient for race that conforms to the NKF-ASN Task Force Recommendations. Performed By: #### 4 6124 #### LAB [address] [address] Moody Martinez M.D. [id number] EGFR 25 mL/min/1.73 m2 Low >=60 [facility] Comment on above: Order Comment: [facility] has implemented the eGFR calculation approach that does not have a coefficient for race that conforms to the NKF-ASN Task Force Recommendations. Result Comment: Albin mated GFR was calculated using the 2020 CKD-EPI creatinine equation. Performed By: #### 4 6124 #### LAB [address] [address] Moody Martinez M.D. [id number] Glucose [Mass/Vol] 86 mg/dL Normal 65-99 [facility] Comment on above: Order Comment: [facility] has implemented the eGFR calculation approach that does not have a coefficient for race that conforms to the NKF-ASN Task Force Recommendations. Performed By: #### 4 6124 #### LAB [address] [address] Moody Martinez M.D. [id number] HCO3 (Bld) [Moles/Vol] 26 mmol/L Normal 21-32 [facility] Comment on above: Order Comment: [facility] has implemented the eGFR calculation approach that does not have a coefficient for race that conforms to the NKF-ASN Task Force Recommendations. Performed By: #### 4 6124 #### LAB [address] [place], [place] [address] Moody Martinez M.D. [id number] Potassium [Moles/Vol] 4.2 mmol/L Normal 3.5-5.1 [facility] Comment on above: Order Comment: [facility] has implemented the eGFR calculation approach that does not have a coefficient for race that conforms to the NKF-ASN Task Force Recommendations. Performed By: #### 4 6124 #### LAB [address] [place], [place] [address] Moody Martinez M.D. [id number] Sodium [Moles/Vol] 141 mmol/L Normal 135-145 [facility] Comment on above: Order Comment: [facility] has implemented the eGFR calculation approach that does not have a coefficient for race that conforms to the NKF-ASN Task Force Recommendations. Performed By: #### 4 6124 #### LAB [address] [place], [place] [address] Moody Martinez M.D. [id number] Urea nitrogen [Mass/Vol] 47 mg/dL High 8-25 [facility] Comment on above: Order Comment: [facility] has implemented the eGFR calculation approach that does not have a coefficient for race that conforms to the NKF-ASN Task Force Recommendations. Performed By: #### 4 6124 #### LAB [address] [place], [place] [address] Moody Martinez M.D. [id number] Urea nitrogen/Creatinine [Mass ratio] 18.9 mg/mg Normal 10.0-20.0 [facility] Comment on above: Order Comment: [facility] has implemented the eGFR calculation approach that does not have a coefficient for race that conforms to the NKF-ASN Task Force Recommendations. Performed By: #### 4 6124 #### LAB [address] [address] Moody Martinez M.D. [id number] CBCon 03-01-2025 AUTO NRBC 0.0 % Normal [facility] Comment on above: Performed By: #### 4 5218 #### LAB [address] [address] Moody Martinez M.D. [id number] AUTO NRBC ABS COUNT 0.00 K/mcL Normal 0.00-0.00 [facility] Comment on above: Performed By: #### 4 5218 #### LAB [address] [address] Moody Martinez M.D. [id number] Erythrocyte distribution width (RBC) [Ratio] 13.7 % Normal 11.6-14.8 [facility] Comment on above: Performed By: #### 4 5218 #### LAB [address] [address] Moody Martinez M.D. [id number] Hematocrit (Bld) [Volume fraction] 29.8 % Low 41.0-53.0 [facility] Comment on above: Performed By: #### 4 5218 #### LAB [address] [address] Moody Martinez M.D. [id number] Hemoglobin (Bld) [Mass/Vol] 9.9 g/dL Low 13.5-17.5 [facility] Comment on above: Performed By: #### 4 5218 #### LAB [address] [address] Moody Martinez M.D. [id number] MCH (RBC) [Entitic mass] 31.0 pg Normal 26.0-34.0 [facility] Comment on above: Performed By: #### 4 5218 #### LAB [address] [address] Moody Martinez M.D. [id number] MCV (RBC) [Entitic vol] 93.4 fL Normal 80.0-100.0 [facility] Comment on above: Performed By: #### 4 5218 #### LAB [address] [address] Moody Martinez M.D. [id number] MEAN CORPUSCULAR HEMOGLOBIN CONC 33.2 g/dL Normal 31.0-37.0 [facility] Comment on above: Performed By: #### 4 5218 #### LAB [address] [address] Moody Martinez M.D. [id number] Platelet mean volume (Bld) [Entitic vol] 10.9 fL Normal 9.4-12.4 [facility] Comment on above: Performed By: #### 4 5218 #### LAB [address] [address] Moody Martinez M.D. [id number] Platelets (Bld) [#/Vol] 186 10*3/uL Normal 150-400 [facility] Comment on above: Performed By: #### 4 5218 #### LAB [address] [address] Moody Martinez M.D. [id number] RBC (Bld) [#/Vol] 3.19 10*6/uL Low 4.50-5.90 [facility] Comment on above: Performed By: #### 4 5218 #### LAB [address] [address] Moody Martinez M.D. [id number] WBC (Bld) [#/Vol] 15.37 10*3/uL High 4.50-11.00 [facility] Comment on above: Performed By: #### 4 5218 #### LAB [address] [address] Moody Martinez M.D. [id number] MAGNESIUM LEVELon 03-01-2025 Magnesium [Mass/Vol] 2.1 mg/dL Normal 1.6-2.4 [facility] Comment on above: Performed By: #### 4 6109 #### LAB [address] [address] Moody Martinez M.D. [id number] PHOSPHORUSon 03-01-2025 Phosphate [Mass/Vol] 4.3 mg/dL High 2.3-3.7 [facility] Comment on above: Performed By: #### 4 6299 ####[facility] [address] [address] Moody Martinez M.D. [id number] POC GLUCOSE - [facility] 025 Glucose [Mass/Vol] 249 mg/dL High -[address] [place] [address] Comment on above: Performed By: #### 4 6932 ####[facility] [address] [address] Moody Martinez M.D. [id number] Glucose [Mass/Vol] 79 mg/dL Normal [address] [place] [address] Comment on above: Performed By: #### 4 6932 ####[facility] [address] [address] Moody Martinez M.D. [id number] Glucose [Mass/Vol] 237 mg/dL High [address] [place] [address] Comment on above: Performed By: #### 4 6932 ####[facility] [address] [address] Moody Martinez M.D. [id number] Glucose [Mass/Vol] 85 mg/dL Normal [address] [place] [address] Comment on above: Performed By: #### 4 6932 ####[facility] [address] [address] Moody Martinez M.D. [id number] Glucose [Mass/Vol] 167 mg/dL High [address] [place] [address] Comment on above: Performed By: #### 4 6906 ####[facility] [address] [address] Moody Martinez M.D. [id number] BASIC METABOLIC PANELon 02-01 Anion gap [Moles/Vol] 16 mmol/L Normal 10-20 [facility] Comment on above: Order Comment: [facility] has implemented the eGFR calculation approach that does not have a coefficient for race that conforms to the NKF-ASN Task Force Recommendations. Performed By: #### 4 4014 #### LAB [address] [address] Moody Martinez M.D. [id number] Calcium [Mass/Vol] 9.5 mg/dL Normal 8.4-10.2 [facility] Comment on above: Order Comment: [facility] has implemented the eGFR calculation approach that does not have a coefficient for race that conforms to the NKF-ASN Task Force Recommendations. Performed By: #### 4 4014 #### [facility] [address] [address] Moody Martinez M.D. [id number] Chloride [Moles/Vol] 103 mmol/L Normal 98-108 [facility] Comment on above: Order Comment: [facility] has implemented the eGFR calculation approach that does not have a coefficient for race that conforms to the NKF-ASN Task Force Recommendations. Performed By: #### 4 4014 #### LAB [address] [address] Moody Martinez M.D. [id number] Creatinine [Mass/Vol] 2.61 mg/dL High 0.80-1.30 [facility] Comment on above: Order Comment: [facility] has implemented the eGFR calculation approach that does not have a coefficient for race that conforms to the NKF-ASN Task Force Recommendations. Performed By: #### 4 4014 #### LAB [address] [address] Moody Martinez M.D. [id number] EGFR 24 mL/min/1.73 m2 Low >=60 [facility] Comment on above: Order Comment: [facility] has implemented the eGFR calculation approach that does not have a coefficient for race that conforms to the NKF-ASN Task Force Recommendations. Result Comment: Albin mated GFR was calculated using the 2020 CKD-EPI creatinine equation. Performed By: #### 4 4014 #### LAB [address] [address] Moody Martinez M.D. [id number] Glucose [Mass/Vol] 138 mg/dL High 65-99 [facility] Comment on above: Order Comment: [facility] has implemented the eGFR calculation approach that does not have a coefficient for race that conforms to the NKF-ASN Task Force Recommendations. Performed By: #### 4 4014 #### [facility] [address] [address] Moody Martinez M.D. [id number] HCO3 (Bld) [Moles/Vol] 23 mmol/L Normal 21-32 [facility] Comment on above: Order Comment: [facility] has implemented the eGFR calculation approach that does not have a coefficient for race that conforms to the NKF-ASN Task Force Recommendations. Performed By: #### 4 4014 #### LAB [address] [address] Moody Martinez M.D. [id number] Potassium [Moles/Vol] 4.0 mmol/L Normal 3.5-5.1 [facility] Comment on above: Order Comment: [facility] has implemented the eGFR calculation approach that does not have a coefficient for race that conforms to the NKF-ASN Task Force Recommendations. Performed By: #### 4 4014 #### [facility] [address] [address] Moody Martinez M.D. [id number] Sodium [Moles/Vol] 138 mmol/L Normal 135-145 [facility] Comment on above: Order Comment: [facility] has implemented the eGFR calculation approach that does not have a coefficient for race that conforms to the NKF-ASN Task Force Recommendations. Performed By: #### 4 4014 #### [facility] [address] [address] Moody Martinez M.D. [id number] Urea nitrogen [Mass/Vol] 50 mg/dL High 8-25 [facility] Comment on above: Order Comment: [facility] has implemented the eGFR calculation approach that does not have a coefficient for race that conforms to the NKF-ASN Task Force Recommendations. Performed By: #### 4 4014 #### LAB [address] [place], [place] [address] Moody Martinez M.D. [id number] Urea nitrogen/Creatinine [Mass ratio] 19.2 mg/mg Normal 10.0-20.0 [facility] Comment on above: Order Comment: [facility] has implemented the eGFR calculation approach that does not have a coefficient for race that conforms to the NKF-ASN Task Force Recommendations. Performed By: #### 4 4014 #### [facility] [address] [place], [place] [address] Moody Martinez M.D. [id number] Anion gap [Moles/Vol] 22 mmol/L High 10-20 [facility] Comment on above: Order Comment: Injur y/Trauma or Illness?:Illness/Other How long have you had these symptoms (acute/chronic)?:Acute Reason for exam?:cross clamp of aorta for CPB Type of Exam?:Initial Additional signs and symptoms?:cp Performed By: #### 4 6124 ####[facility] [address] [place], [place] [address] Moody Martinez M.D. [id number] Calcium [Mass/Vol] 9.6 mg/dL Normal 8.4-10.2 [facility] Comment on above: Order Comment: Injur y/Trauma or Illness?:Illness/Other How long have you had these symptoms (acute/chronic)?:Acute Reason for exam?:cross clamp of aorta for CPB Type of Exam?:Initial Additional signs and symptoms?:cp Performed By: #### 4 6124 ####[facility] [address] [place], [place] [address] Moody Martinez M.D. [id number] Chloride [Moles/Vol] 100 mmol/L Normal 98-108 [facility] Comment on above: Order Comment: Injur y/Trauma or Illness?:Illness/Other How long have you had these symptoms (acute/chronic)?:Acute Reason for exam?:cross clamp of aorta for CPB Type of Exam?:Initial Additional signs and symptoms?:cp Performed By: #### 4 6167 #### LAB [address] [place], [place] [address] Moody Martinez M.D. [id number] Creatinine [Mass/Vol] 2.69 mg/dL High 0.80-1.30 [facility] Comment on above: Order Comment: Injur y/Trauma or Illness?:Illness/Other How long have you had these symptoms (acute/chronic)?:Acute Reason for exam?:cross clamp of aorta for CPB Type of Exam?:Initial Additional signs and symptoms?:cp Performed By: #### 4 6124 #### LAB [address] [place], [place] [address] Moody Martinez M.D. [id number] EGFR 23 mL/min/1.73 m2 Low >=60 [facility] Comment on above: Order Comment: Injur y/Trauma or Illness?:Illness/Other How long have you had these symptoms (acute/chronic)?:Acute Reason for exam?:cross clamp of aorta for CPB Type of Exam?:Initial Additional signs and symptoms?:cp Result Comment: Albin mated GFR was calculated using the 2020 CKD-EPI creatinine equation. Performed By: #### 4 6124 #### LAB [address] [place], [place] [address] Moody Martinez M.D. [id number] Glucose [Mass/Vol] 426 mg/dL Off scale high 65-99 [facility] Comment on above: Order Comment: Injur y/Trauma or Illness?:Illness/Other How long have you had these symptoms (acute/chronic)?:Acute Reason for exam?:cross clamp of aorta for CPB Type of Exam?:Initial Additional signs and symptoms?:cp Performed By: #### 4 6124 #### LAB [address] [place], [place] [address] Moody Martinez M.D. [id number] HCO3 (Bld) [Moles/Vol] 19 mmol/L Low 21-32 [facility] Comment on above: Order Comment: Injur y/Trauma or Illness?:Illness/Other How long have you had these symptoms (acute/chronic)?:Acute Reason for exam?:cross clamp of aorta for CPB Type of Exam?:Initial Additional signs and symptoms?:cp Performed By: #### 4 6124 #### LAB [address] [place], [place] [address] Moody Martinez M.D. [id number] Potassium [Moles/Vol] 4.0 mmol/L Normal 3.5-5.1 [facility] Comment on above: Order Comment: Injur y/Trauma or Illness?:Illness/Other How long have you had these symptoms (acute/chronic)?:Acute Reason for exam?:cross clamp of aorta for CPB Type of Exam?:Initial Additional signs and symptoms?:cp Performed By: #### 4 6124 #### LAB [address] [address] Moody Martinez M.D. [id number] Sodium [Moles/Vol] 137 mmol/L Normal 135-145 [facility] Comment on above: Order Comment: Injur y/Trauma or Illness?:Illness/Other How long have you had these symptoms (acute/chronic)?:Acute Reason for exam?:cross clamp of aorta for CPB Type of Exam?:Initial Additional signs and symptoms?:cp Performed By: #### 4 6124 #### LAB [address] [place] [id number] Moody Martinez M.D. [id number] Urea nitrogen [Mass/Vol] 51 mg/dL High 8- [facility] Comment on above: Order Comment: Injur y/Trauma or Illness?:Illness/Other How long have you had these symptoms (acute/chronic)?:Acute Reason for exam?:cross clamp of aorta for CPB Type of Exam?:Initial Additional signs and symptoms?:cp Performed By: #### 4 6124 #### LAB [address] [place] [id number] Moody Martinez M.D. [id number] Urea nitrogen/Creatinine [Mass ratio] 19.0 mg/mg Normal 10.0-20.0 [facility] Comment on above: Order Comment: Injur y/Trauma or Illness?:Illness/Other How long have you had these symptoms (acute/chronic)?:Acute Reason for exam?:cross clamp of aorta for CPB Type of Exam?:Initial Additional signs and symptoms?:cp Performed By: #### 4 6124 #### LAB [address] [place], [place] [address] Moody Martinez M.D. [id number] Anion gap [Moles/Vol] 27 mmol/L High 10-20 [facility] Comment on above: Order Comment: [facility] has implemented the eGFR calculation approach that does not have a coefficient for race that conforms to the NKF-ASN Task Force Recommendations. Performed By: #### 4 6124 #### LAB [address] [place] [id number] Moody Martinez M.D. [id number] Calcium [Mass/Vol] 9.6 mg/dL Normal 8.4-10.2 [facility] Comment on above: Order Comment: [facility] has implemented the eGFR calculation approach that does not have a coefficient for race that conforms to the NKF-ASN Task Force Recommendations. Performed By: #### 4 6124 #### LAB [address] [address] Moody Martinez M.D. [id number] Chloride [Moles/Vol] 97 mmol/L Low 98-108 [facility] Comment on above: Order Comment: [facility] has implemented the eGFR calculation approach that does not have a coefficient for race that conforms to the NKF-ASN Task Force Recommendations. Performed By: #### 4 6124 #### LAB [address] [address] Moody Martinez M.D. [id number] Creatinine [Mass/Vol] 2.72 mg/dL High 0.80-1.30 [facility] Comment on above: Order Comment: [facility] has implemented the eGFR calculation approach that does not have a coefficient for race that conforms to the NKF-ASN Task Force Recommendations. Performed By: #### 4 6101 #### LAB [address] [id number] Moody Martinez M.D. [id number] EGFR 23 mL/min/1.73 m2 Low >=60 [facility] Comment on above: Order Comment: [facility] has implemented the eGFR calculation approach that does not have a coefficient for race that conforms to the NKF-ASN Task Force Recommendations. Result Comment: Albin mated GFR was calculated using the 2020 CKD-EPI creatinine equation. Performed By: #### 4 6156 #### LAB [address] [address] Moody Martinez M.D. [id number] Glucose [Mass/Vol] 529 mg/dL Off scale high 65-99 [facility] Comment on above: Order Comment: [facility] has implemented the eGFR calculation approach that does not have a coefficient for race that conforms to the NKF-ASN Task Force Recommendations. Performed By: #### 4 6124 ####[facility] [address] [place] [address] Moody Martinez M.D. [id number] HCO3 (Bld) [Moles/Vol] 17 mmol/L Low 21-32 [facility] Comment on above: Order Comment: [facility] has implemented the eGFR calculation approach that does not have a coefficient for race that conforms to the NKF-ASN Task Force Recommendations. Performed By: #### 4 6191 #### LAB [address] [address] Moody Martinez M.D. [id number] Potassium [Moles/Vol] 4.5 mmol/L Normal 3.5-5.1 [facility] Comment on above: Order Comment: [facility] has implemented the eGFR calculation approach that does not have a coefficient for race that conforms to the NKF-ASN Task Force Recommendations. Performed By: #### 4 6124 ####[facility] [address] [place] [address] Moody Martinez M.D. [id number] Sodium [Moles/Vol] 136 mmol/L Normal 135-145 [facility] Comment on above: Order Comment: [facility] has implemented the eGFR calculation approach that does not have a coefficient for race that conforms to the NKF-ASN Task Force Recommendations. Performed By: #### 4 6124 ####[facility] [address] [place], [place] [address] Moody Martinez M.D. [id number] Urea nitrogen [Mass/Vol] 52 mg/dL High 8- [facility] Comment on above: Order Comment: [facility] has implemented the eGFR calculation approach that does not have a coefficient for race that conforms to the NKF-ASN Task Force Recommendations. Performed By: #### 4 6124 #### LAB [address] [place] [address] Moody Martinez M.D. [id number] Urea nitrogen/Creatinine [Mass ratio] 19.1 mg/mg Normal 10.0-20.0 [facility] Comment on above: Order Comment: [facility] has implemented the eGFR calculation approach that does not have a coefficient for race that conforms to the NKF-ASN Task Force Recommendations. Performed By: #### 4 6124 #### LAB [address] [place] [address] Moody Martinez M.D. [id number] Anion gap [Moles/Vol] 28 mmol/L High 10- [facility] Comment on above: Order Comment: Injur y/Trauma or Illness?:Illness/Other How long have you had these symptoms (acute/chronic)?:Acute Reason for exam?:sob History of cancer?:. Surgeries, chemotherapy, or radiation?:cardiac catheterization Type of Exam?:Initial Additional signs and symptoms?:n Performed By: #### 4 6124 #### LAB [address] [address] Moody Martinez M.D. [id number] Calcium [Mass/Vol] 9.6 mg/dL Normal 8.4-10.2 [facility] Comment on above: Order Comment: Injur y/Trauma or Illness?:Illness/Other How long have you had these symptoms (acute/chronic)?:Acute Reason for exam?:sob History of cancer?:. Surgeries, chemotherapy, or radiation?:cardiac catheterization Type of Exam?:Initial Additional signs and symptoms?:n Performed By: #### 4 6124 #### LAB [address] [address] Moody Martinez M.D. [id number] Chloride [Moles/Vol] 97 mmol/L Low 98-108 [facility] Comment on above: Order Comment: Injur y/Trauma or Illness?:Illness/Other How long have you had these symptoms (acute/chronic)?:Acute Reason for exam?:sob History of cancer?:. Surgeries, chemotherapy, or radiation?:cardiac catheterization Type of Exam?:Initial Additional signs and symptoms?:n Performed By: #### 4 6124 #### LAB [address] [address] Moody Martinez M.D. [id number] Creatinine [Mass/Vol] 2.66 mg/dL High 0.80-1.30 [facility] Comment on above: Order Comment: Injur y/Trauma or Illness?:Illness/Other How long have you had these symptoms (acute/chronic)?:Acute Reason for exam?:sob History of cancer?:. Surgeries, chemotherapy, or radiation?:cardiac catheterization Type of Exam?:Initial Additional signs and symptoms?:n Performed By: #### 4 6124 #### LAB [address] [address] Moody Mratinez M.D. [id number] EGFR 23 mL/min/1.73 m2 Low >=60 [facility] Comment on above: Order Comment: Injur y/Trauma or Illness?:Illness/Other How long have you had these symptoms (acute/chronic)?:Acute Reason for exam?:sob History of cancer?:. Surgeries, chemotherapy, or radiation?:cardiac catheterization Type of Exam?:Initial Additional signs and symptoms?:n Result Comment: Albin mated GFR was calculated using the 2020 CKD-EPI creatinine equation. Performed By: #### 4 6124 #### LAB [address] [address] Moody Martinez M.D. [id number] Glucose [Mass/Vol] 514 mg/dL Off scale high 65-99 [facility] Comment on above: Order Comment: Injur y/Trauma or Illness?:Illness/Other How long have you had these symptoms (acute/chronic)?:Acute Reason for exam?:sob History of cancer?:. Surgeries, chemotherapy, or radiation?:cardiac catheterization Type of Exam?:Initial Additional signs and symptoms?:n Performed By: #### 4 6144 #### LAB [address] [address] Moody Martinez M.D. [id number] HCO3 (Bld) [Moles/Vol] 18 mmol/L Low 21-32 [facility] Comment on above: Order Comment: Injur y/Trauma or Illness?:Illness/Other How long have you had these symptoms (acute/chronic)?:Acute Reason for exam?:sob History of cancer?:. Surgeries, chemotherapy, or radiation?:cardiac catheterization Type of Exam?:Initial Additional signs and symptoms?:n Performed By: #### 4 6196 #### LAB [address] [address] Moody Martinez M.D. [id number] Potassium [Moles/Vol] 5.9 mmol/L High 3.5-5.1 [facility] Comment on above: Order Comment: Injur y/Trauma or Illness?:Illness/Other How long have you had these symptoms (acute/chronic)?:Acute Reason for exam?:sob History of cancer?:. Surgeries, chemotherapy, or radiation?:cardiac catheterization Type of Exam?:Initial Additional signs and symptoms?:n Result Comment: Sajan htly Hemolyzed Performed By: #### 4 6161 #### LAB [address] [address] Moody Martinez M.D. [id number] Sodium [Moles/Vol] 137 mmol/L Normal 135-145 [facility] Comment on above: Order Comment: Injur y/Trauma or Illness?:Illness/Other How long have you had these symptoms (acute/chronic)?:Acute Reason for exam?:sob History of cancer?:. Surgeries, chemotherapy, or radiation?:cardiac catheterization Type of Exam?:Initial Additional signs and symptoms?:n Performed By: #### 4 6135 #### LAB [address] [address] Moody Martinez M.D. [id number] Urea nitrogen [Mass/Vol] 50 mg/dL High 8-25 [facility] Comment on above: Order Comment: Injur y/Trauma or Illness?:Illness/Other How long have you had these symptoms (acute/chronic)?:Acute Reason for exam?:sob History of cancer?:. Surgeries, chemotherapy, or radiation?:cardiac catheterization Type of Exam?:Initial Additional signs and symptoms?:n Performed By: #### 4 6140 #### LAB [address] [address] Moody Martinez M.D. [id number] Urea nitrogen/Creatinine [Mass ratio] 18.8 mg/mg Normal 10.0-20.0 [facility] Comment on above: Order Comment: Injur y/Trauma or Illness?:Illness/Other How long have you had these symptoms (acute/chronic)?:Acute Reason for exam?:sob History of cancer?:. Surgeries, chemotherapy, or radiation?:cardiac catheterization Type of Exam?:Initial Additional signs and symptoms?:n Performed By: #### 4 6188 #### LAB [address] [address] Moody Martinez M.D. [id number] BETA-HYDROXYBUTYRATEon 02-28 BETA-HYDROXYBUTYRATE < Normal 0.0-0.3 [facility] Comment on above: Performed By: #### 4 5194 ####[facility] LAB [address] [address] Moody Martinez M.D. [id number] BETA-HYDROXYBUTYRATE 1.1 mmol/L High 0.0-0.3 [facility] Comment on above: Performed By: #### 4 5138 ####[facility] LAB [address] [id number] Moody Martinez M.D. [id number] BETA-HYDROXYBUTYRATE 3.3 mmol/L High 0.0-0.3 [facility] Comment on above: Performed By: #### 4 4018 #### LAB [address] [address] Moody Martinez M.D. [id number] BETA-HYDROXYBUTYRATE 3.3 mmol/L High 0.0-0.3 [facility] Comment on above: Performed By: #### 4 4014 #### LAB [address] [address] Moody Martinez M.D. [id number] BLOOD CULTURE AEROBIC/ANAERO BICon 02-28-2025 BLOOD CULTURE AEROBIC/ANAEROBIC BLOOD CULTURE No Growth after 5 days [facility] Comment on above: Performed By: #### 4 4014 #### LAB [address] [address] Moody Martinez M.D. [id number] Performed By: #### 4 4014 #### LAB [address] [address] Moody Martinez M.D. [id number] CBC WITH AUTO DIFFERENTIALon 02-28-2025 AUTO NRBC 0.0 % [facility] Comment on above: Performed By: #### L [id number] #### LAB [address] [place] [address] Moody Martinez M.D. [id number] AUTO NRBC ABS COUNT 0.00 K/mcL Normal 0.00-0.00 [facility] Comment on above: Performed By: #### L [id number] #### LAB [address] [place] [address] Moody Martinez M.D. [id number] BASOPHILS ABSOLUTE COUNT 0.05 K/mcL Normal 0.00-0.30 [facility] Comment on above: Performed By: #### L [id number] #### LAB [address] [place] [address] Moody Martinez M.D. [id number] Basophils/100 WBC (Bld) 0.3 % Normal [facility] Comment on above: Performed By: #### L [id number] #### LAB [address] [place] [address] Moody Martinez M.D. [id number] Eosinophils (Bld) [#/Vol] 0.00 10*3/uL Normal 0.00-0.[address] [place] [address] Comment on above: Performed By: #### L [id number] #### LAB [address] [address] Moody Martinez M.D. [id number] Eosinophils/100 WBC (Bld) 0.0 % Normal [facility] Comment on above: Performed By: #### L [id number] #### LAB [address] [address] Moody Martinez M.D. [id number] Erythrocyte distribution width (RBC) [Ratio] 13.5 % Normal 11.6-14.8 [facility] Comment on above: Performed By: #### L [id number] #### LAB [address] [address] Moody Martinez M.D. [id number] Hematocrit (Bld) [Volume fraction] 40.2 % Low 41.0-53.0 [facility] Comment on above: Performed By: #### L [id number] #### LAB [address] [address] Moody Martinez M.D. [id number] Hemoglobin (Bld) [Mass/Vol] 13.1 g/dL Low 13.5-17.5 [facility] Comment on above: Performed By: #### L [id number] #### LAB [address] [place] [address] Moody Martinez M.D. [id number] IG ABSOLUTE 0.16 K/mcL Normal 0.00-0.30 [facility] Comment on above: Performed By: #### L [id number] #### LAB [address] [place] [address] Moody Martinez M.D. [id number] IG PERCENT 0.80 % Normal [facility] Comment on above: Result Comment: The IG parameter is the percentage of metamyelocytes, myelocytes and promyelocytes. An immature granulocyte count (IG) of 1% or more suggests the possibility of infection, an IG count of 3% is very likely related to an infection. Performed By: #### L [id number] #### LAB [address] [place] [address] Moody Martinez M.D. [id number] Lymphocytes (Bld) [#/Vol] 1.13 10*3/uL Normal 0.90-4.0 0 [facility] Comment on above: Performed By: #### L [id number] #### LAB [address] [address] Moody Martinez M.D. [id number] Lymphocytes/100 WBC (Bld) 6.0 % Normal [facility] Comment on above: Performed By: #### L [id number] #### LAB [address] [address] Moody Martinez M.D. [id number] MCH (RBC) [Entitic mass] 30.8 pg Normal 26.0-34.0 [facility] Comment on above: Performed By: #### L [id number] #### LAB [address] [address] Moody Martinez M.D. [id number] MCV (RBC) [Entitic vol] 94.6 fL Normal 80.0-100.0 [facility] Comment on above: Performed By: #### L [id number] #### LAB [address] [address] Moody Martinez M.D. [id number] MEAN CORPUSCULAR HEMOGLOBIN CONC 32.6 g/dL Normal 31.0-37.0 [facility] Comment on above: Performed By: #### L [id number] #### LAB [address] [address] Moody Martinez M.D. [id number] Monocytes (Bld) [#/Vol] 0.91 10*3/uL High 0.30-0.90 [facility] Comment on above: Performed By: #### L [id number] #### LAB [address] [place] [address] Moody Martinez M.D. [id number] Monocytes/100 WBC (Bld) 4.8 % Normal [facility] Comment on above: Performed By: #### L [id number] #### LAB [address] [address] Moody Martinez M.D. [id number] NEUTROPHILS ABSOLUTE COUNT 16.63 K/mcL High 1.70-7.00 [facility] Comment on above: Performed By: #### L [id number] #### LAB [address] [address] Moody Martinez M.D. [id number] Neutrophils/100 WBC (Bld) 88.1 % Normal [facility] Comment on above: Performed By: #### L [id number] #### LAB [address] [address] Moody Martinez M.D. [id number] Platelet mean volume (Bld) [Entitic vol] 11.1 fL Normal 9.4-12.4 [facility] Comment on above: Performed By: #### L [id number] #### LAB [address] [address] Moody Martinez M.D. [id number] Platelets (Bld) [#/Vol] 258 10*3/uL Normal 150-400 [facility] Comment on above: Performed By: #### L [id number] #### LAB [address] [address] Moody Martinez M.D. [id number] RBC (Bld) [#/Vol] 4.25 10*6/uL Low 4.50-5.90 [facility] Comment on above: Performed By: #### L [id number] #### LAB [address] [address] Moody Martinez M.D. [id number] WBC (Bld) [#/Vol] 18.88 10*3/uL High 4.50-11.00 [facility] Comment on above: Performed By: #### L [id number] #### LAB [address] [address] Moody Martinez M.D. [id number] COVID-19/INFLUENZA A,B MOLEC ULARon 02-28-2025 SARS-CoV-2 (COVID-19) Ab IA Ql SARS-COV-2 (FERDINAND) Not Detected INFLUENZA A (FERDINAND) Not Detected INFLUENZA B (FERDINAND) Not Detected Normal Not Detected [facility] Comment on above: Performed By: #### L [id number] #### LAB [address] [place], [place] [address] Moody Martinez M.D. [id number] CRP, INFLAMMATIONon 02-29-20 CRP (INFLAMMATION) < Normal 0.0-10.0 [facility] Comment on above: Performed By: #### 4 5334 #### LAB [address] [place], [place] [address] Moody Martinez M.D. [id number] D-DIMER, QUANTITATIVEon 02-01 D-DIMER QUANTITATIVE 1.67 mcg/mL FEU High 0.27-0.49 [facility] Comment on above: Order Comment: A [...] By: #### 4 5434 #### LAB [address] [place], [place] [address] Moody Martinez M.D. [id number] ED Procedureon 02-28-2025 ED Procedure ECG 12 Lead Date/Time: 02/28/2025 4:33 AM Performed by: Conchita Yañez MD Authorized by: Conchita Yañez MD Interpreted by ED attending physician Rhythm: sinus rhythm and sinus tachycardia BPM: 103 Clinical impression: sinus tachycardia Comments: NM interval 144 QRS duration 90 QTc 437 AUTHENTICATED BY CONCHITA YAÑEZ, ON 02/28/2025 04:33:26 Normal [facility] ED Procedure EKG 12-lead Date/Time: 02/28/2025 3:26 AM Performed by: Conchita Yañez MD Authorized by: Conchita Yañez MD Interpreted by ED attending physician Rhythm: sinus rhythm BPM: 88 Comments: NM interval 162 QRS duration 102 QTc 491 T wave inversion in lead III and aVF as well as V5 V6 AUTHENTICATED BY CONCHITA YAÑEZ, ON 02/28/2025 03:26:34 Normal [facility] ED Prov Noteon 02-28-2025 ED Prov Note [facility] EMERGENCY DEPARTMENT ATTENDING NOTE: NAME: Enoc Armando CSN: [id number] 79 y.o. PCP: Ryley Jeter MD History: [...] Procedure Laterality Date CATARACT EXT/ECCE Bilateral 12/2012,07/2014 NM CATH PLMT L HRT & ARTS W/NJX & ANGIO IMG S&I N/A 10/27/2024 Procedure: Coronary Angiogram; Surgeon: Elías Rodriguez MD; Location: [facility]; Service: Cardiovascular NM CATH PLMT L HRT & ARTS W/NJX & ANGIO IMG S&I N/A 10/27/2024 Procedure: Left Heart Cath; Surgeon: Elías Rodriguez MD; Location: [facility]; Service: Cardiovascular SKIN CANCER EXCISION 09/2021 L [...] (more content not included)... Normal [facility] HEMOGLOBIN A1Con 02-28-2025 Glucose [Mass/Vol] 171 mg/dL High 74-114 [facility] Comment on above: Performed By: #### 4 8202 ####[facility] LAB [address] [place], [place] [address] Moody Martinez M.D. [id number] HbA1c (Bld) [Mass fraction] 7.6 % High 4.2-5.6 [facility] Comment on above: Performed By: #### 4 8202 ####[facility] LAB [address] [place], [place] [address] Moody Martinez M.D. [id number] LACTIC ACID, PLASMAon 2024 LACTIC ACID, PLASMA 2.9 mmol/L High 0.6-2.0 [facility] Comment on above: Performed By: #### 4 4014 #### LAB [address] [place], [place] [address] Moody Martinez M.D. [id number] LEGIONELLA ANTIGEN, URINEon 02-28-2025 LEGIONELLA ANTIGEN, URINE LEGIONELLA ANT IGEN Negative for Legionella antigen COMMENT: Results may be affected if patient is on diuretics. INTERPRETATION OF RESULTS: Test detects Legionella pneumophilia serogroup 1 antigens in urine. Legionnaires disease cannot be ruled out since other serogroups and species may also cause disease. Normal [facility] Comment on above: Performed By: #### 4 4090 #### LAB [address] [address] Moody Martinez M.D. [id number] MRSA DNA AMPLIFIED PROBEon 0 02-28-2025 MRSA DNA AMPLIFIED PROBE Negative Normal Not Detected, MRSA NEGATIVE [facility] Comment on above: Performed By: #### 4 8061 #### LAB [address] [address] Moody Martinez M.D. [id number] NT PRO BNPon 02-28-2025 Natriuretic peptide B (Bld) [Mass/Vol] 9634 pg/mL High 0-300 [facility] Comment on above: Order Comment: Injur y/Trauma or Illness?:Illness/Other How long have you had these symptoms (acute/chronic)?:Acute Reason for exam?:sob History of cancer?:. Surgeries, chemotherapy, or radiation?:cardiac catheterization Type of Exam?:Initial Additional signs and symptoms?:n Performed By: #### 4 7395 #### LAB [address] [place], [place] [address] Moody Martinez M.D. [id number] Natriuretic peptide B (Bld) [Mass/Vol] 3396 pg/mL High 0-300 [facility] Comment on above: Order Comment: Pride Study Cut-offsRule In:< /= 50 Years >450 pg/mL51 Years - 75 Years >900 pg/mL76 Years - 99 Years >1800 pg/mLRule Out:All patients <300 pg/mL Performed By: #### 4 7364 ####[facility] LAB [address] [place], [place] [address] Moody Martinez M.D. [id number] OSMOLALITYon 02-28-2025 Osmolality [Osmolality] 328 mosm/kg High 275-295 [facility] Comment on above: Performed By: #### 4 6230 #### LAB [address] [place], [place] [address] Moody Martinez M.D. [id number] PHOSPHORUSon 02-28-2025 Phosphate [Mass/Vol] 2.5 mg/dL Normal 2.3-3.7 [facility] Comment on above: Performed By: #### 4 6299 #### LAB [address] [id number] Moody Martinez M.D. [id number] Phosphate [Mass/Vol] 2.7 mg/dL Normal 2.3-3.7 [facility] Comment on above: Performed By: #### 4 6299 #### LAB [address] [address] Moody Martinez M.D. [id number] Phosphate [Mass/Vol] 3.5 mg/dL Normal 2.3-3.7 [facility] Comment on above: Performed By: #### 4 6299 #### LAB [address] [id number] Moody Martinez M.D. [id number] POC GLUCOSE - [facility] 025 Glucose [Mass/Vol] 236 mg/dL [address] Comment on above: Performed By: #### 4 6932 ####[facility] LAB [address] [id number] Moody Martinez M.D. [id number] Glucose [Mass/Vol] 153 mg/dL [address] Comment on above: Performed By: #### L [id number] #### [facility] LAB [address] [id number] Moody Martinez M.D. [id number] Glucose [Mass/Vol] 57 mg/dL Low [address] [place] [address] Comment on above: Performed By: #### 4 6932 ####[facility] LAB [address] [address] Moody Martinez M.D. [id number] Glucose [Mass/Vol] 73 mg/dL Normal [address] [place] [address] Comment on above: Performed By: #### 4 6932 ####[facility] LAB [address] [address] Moody Martinez M.D. [id number] Glucose [Mass/Vol] 102 mg/dL High [address] [place] [address] Comment on above: Performed By: #### L [id number] #### [facility] LAB [address] [address] Moody Martinez M.D. [id number] Glucose [Mass/Vol] 119 mg/dL High [address] [place] [address] Comment on above: Performed By: #### 4 6932 #### LAB [address] [address] Moody Martinez M.D. [id number] Glucose [Mass/Vol] 146 mg/dL High [address] [place] [address] Comment on above: Performed By: #### 4 6932 #### LAB [address] [address] Moody Martinez M.D. [id number] Glucose [Mass/Vol] 177 mg/dL High [address] [place] [address] Comment on above: Performed By: #### 4 6932 #### LAB [address] [address] Moody Martinez M.D. [id number] Glucose [Mass/Vol] 241 mg/dL High [address] [place] [address] Comment on above: Performed By: #### 4 6932 ####[facility] LAB [address] [address] Moody Martinez M.D. [id number] Glucose [Mass/Vol] 326 mg/dL High [address] [place] [address] Comment on above: Performed By: #### 4 6932 ####[facility] LAB [address] [address] Moody Martinez M.D. [id number] Glucose [Mass/Vol] 429 mg/dL Off scale high [address] [place] [address] Comment on above: Order Comment: Criti christian result acted upon time of test. Test performed at bedside. Performed By: #### 4 6932 #### LAB [address] [address] Moody Martinez M.D. [id number] POC GLUCOSE > Off scale high [address] [place] [address] Comment on above: Order Comment: Criti christian result acted upon time of test. Test performed at bedside. Performed By: #### 4 6932 ####[facility] LAB [address] [address] Moody Martinez M.D. [id number] POC GLUCOSE > Off scale [address] Comment on above: Order Comment: Criti christian result acted upon time of test. Test performed at bedside. Performed By: #### 4 6932 ####[facility] [address] [address] Moody Martinez M.D. [id number] POC VENOUS BLOOD GAS PANEL-P [facility] 02-28-2025 BASE EXCESS, VENOUS -5.7 Low -2.0-2.0 [facility] Comment on above: Performed By: #### 4 8717 ####[facility] LAB [address] [address] Moody Martinez M.D. [id number] FIO2 50 Normal [facility] Comment on above: Performed By: #### 4 8717 #### LAB [address] [address] Moody Martinez M.D. [id number] HCO3 (Bld) [Moles/Vol] 19.3 mmol/L Low 24.0-28.0 [facility] Comment on above: Performed By: #### 4 8717 #### LAB [address] [address] Moody Martinez M.D. [id number] Hematocrit (Bld) [Volume fraction] 37.3 % Low 41.0-53.0 [facility] Comment on above: Performed By: #### 4 8717 #### LAB [address] [address] Moody Martinez M.D. [id number] Hemoglobin (Bld) [Mass/Vol] 12.2 g/dL Low 13.5-17.5 [facility] Comment on above: Performed By: #### 4 8717 #### LAB [address] [address] Moody Martinez M.D. [id number] Oxygen saturation in Blood 93.7 % High 40.0-70.0 [facility] Comment on above: Performed By: #### 4 8717 #### LAB [address] [address] Moody Martinez M.D. [id number] PCO2 VENOUS 35.1 mm Hg Low 41.0-51.0 [facility] Comment on above: Performed By: #### 4 8717 #### LAB [address] [address] Moody Martinez M.D. [id number] PH VENOUS 7.35 Normal 7.32-7.42 [facility] Comment on above: Performed By: #### 4 8717 #### LAB [address] [address] Moody Martinez M.D. [id number] PO2 VENOUS 68 mm Hg High 25-40 [facility] Comment on above: Performed By: #### 4 8717 #### LAB [address] [address] Moody Martinez M.D. [id number] RESP RATE RAD 14 Normal [facility] Comment on above: Performed By: #### 4 8717 #### LAB [address] [address] Moody Martinez M.D. [id number] SPECIMEN SOURCE RADIANCE Not specified [facility] Comment on above: Performed By: #### 4 8717 #### LAB [address] [address] Moody Martinez M.D. [id number] BASE EXCESS, VENOUS -5.9 Low -2.0-2.0 [facility] Comment on above: Performed By: #### 4 8717 ####[facility] LAB [address] [address] Moody Martinez M.D. [id number] HCO3 (Bld) [Moles/Vol] 20.5 mmol/L Low 24.0-28.0 [facility] Comment on above: Performed By: #### 4 8717 ####[facility] LAB [address] [address] oMody Martinez M.D. [id number] Hematocrit (Bld) [Volume fraction] 42.0 % Normal 41.0-53.0 [facility] Comment on above: Performed By: #### 4 8717 ####[facility] LAB [address] [address] Moody Martinez M.D. [id number] Hemoglobin (Bld) [Mass/Vol] 13.7 g/dL Normal 13.5-17.5 [facility] Comment on above: Performed By: #### 4 8717 #### LAB [address] [address] Moody Martinez M.D. [id number] LITER FLOW 2 Normal [facility] Comment on above: Performed By: #### 4 8717 #### LAB [address] [address] Moody Martinez M.D. [id number] Oxygen saturation in Blood 50.9 % Normal 40.0-70.0 [facility] Comment on above: Performed By: #### 4 8717 ####[facility] [address] [address] Moody Martinez M.D. [id number] PCO2 VENOUS 43.1 mm Hg Normal 41.0-51.0 [facility] Comment on above: Performed By: #### 4 8717 ####[facility] LAB [address] [address] Moody Martinez M.D. [id number] PH VENOUS 7.29 Low 7.32-7.42 [facility] Comment on above: Performed By: #### 4 8717 #### LAB [address] [address] Moody Martinez M.D. [id number] PO2 VENOUS 30 mm Hg Normal 25-40 [facility] Comment on above: Performed By: #### 4 8717 #### LAB [address] [address] Moody Martinez M.D. [id number] SPECIMEN SOURCE RADIANCE Not specified Normal [facility] Comment on above: Performed By: #### 4 8717 #### LAB [address] [place] [address] Moody Martinez M.D. [id number] PROCALCITONINon 02-28-2025 PROCALCITONIN 0.18 ng/ml Normal <0.50 [facility] Comment on above: Order Comment: Resul ts <0.50 ng/ml represent a low risk of severe sepsis and/or septic shock. Performed By: #### 4 6932 #### LAB [address] [address] Moody Martinez M.D. [id number] REFLEX LACTIC ACID, PLASMAon 02-28-2025 LACTIC ACID, PLASMA 2.0 mmol/L Normal 0.6-2.0 [facility] Comment on above: Performed By: #### 4 4014 #### LAB [address] [address] Moody Martinez M.D. [id number] LACTIC ACID, PLASMA 3.5 mmol/L High 0.6-2.0 [facility] Comment on above: Performed By: #### L [id number] #### LAB [address] [address] Moody Martinez M.D. [id number] RESPIRATORY PCR PANELon 02-01 RESPIRATORY PCR PANEL [...] Not Detected Normal Not Detected [facility] Comment on above: Performed By: #### L [id number] ####[facility] [address] [address] Jose Cisse M.D. [id number] S.PNEUMONIAE URINE ANTIGENon 02-28-2025 S.PNEUMONIAE URINE ANTIGEN STREP PNEUMONIAE ANTIGEN, URINE Presumptive Negative for Pneumococcal pneumoniae A negative result does not rule out Streptococcus pneumoniae infection since the antigen present in the sample may be below the detection limit of the test. Normal [facility] Comment on above: Performed By: #### 4 7222 #### LAB [address] [address] Moody Martinez M.D. [id number] SEDIMENTATION RATEon 025 SEDIMENTATION RATE, ERYTHROCYTE 16 mm/hr Normal 0-20 [facility] Comment on above: Performed By: #### 4 6477 #### LAB [address] [place], [place] [address] Moody Martinez M.D. [id number] TROPONIN X 2 (NOW AND REPEAT IN 2 HOURS)on 02-28-2025 TROPONIN T DELTA % NG/L 176 % Off scale high <2 0% of Baseline Troponin [facility] Comment on above: Performed By: #### 4 6608 #### LAB [address] [place], [place] [address] Moody Martinez M.D. [id number] TROPONIN T DELTA CHANGE INTERPRETATION Probable acute injury or myocardial infarction. Normal [facility] Comment on above: Performed By: #### 4 6608 #### LAB [address] [id number] Moody Martinez M.D. [id number] TROPONIN T NG/L 207 ng/L Off scale high <=22 [facility] Comment on above: Performed By: #### 4 6608 #### LAB [address] [address] Moody Martinez M.D. [id number] BASELINE TROPONIN T NG/L 75 ng/L Off scale high <=22 [facility] Comment on above: Performed By: #### 4 4014 #### LAB [address] [address] Moody Martinez M.D. [id number] TROPONIN T INTERPRETATION Possible acute cardiac injury. Normal [facility] Comment on above: Performed By: #### 4 4014 #### LAB [address] [address] Moody Martinez M.D. [id number] TSH WITH REFLEX FREE T4on TSH Qn 0.61 m[IU]/L Normal 0.27-4.20 [facility] Comment on above: Performed By: #### 4 6612 #### LAB [address] [address] Moody Martinez M.D. [id number] URINALYSISon 02-28-2025 BACTERIA, URINE None Seen Normal None Seen [facility] Comment on above: Order Comment: Micro scopic examination is performed on all urinalysis samples and only positive findings are reported. The test for blood on the chemical analytic portion of urinalysis may also be positive due to hemoglobinuria and myoglobinuria and if red blood cells are present they are quantified by microscopic examination. Performed By: #### 4 6625 #### LAB [address] [address] Moody Martinez M.D. [id number] BILIRUBIN, URINE Negative Normal Negative [facility] Comment on above: Order Comment: Micro scopic examination is performed on all urinalysis samples and only positive findings are reported. The test for blood on the chemical analytic portion of urinalysis may also be positive due to hemoglobinuria and myoglobinuria and if red blood cells are present they are quantified by microscopic examination. Performed By: #### 4 6625 #### LAB [address] [address] Moody Martinez M.D. [id number] BLOOD, URINE Negative Normal Negative [facility] Comment on above: Order Comment: Micro scopic examination is performed on all urinalysis samples and only positive findings are reported. The test for blood on the chemical analytic portion of urinalysis may also be positive due to hemoglobinuria and myoglobinuria and if red blood cells are present they are quantified by microscopic examination. Performed By: #### 4 6625 #### LAB [address] [address] Moody Martinez M.D. [id number] Clarity (U) Clear Normal Clear [facility] Comment on above: Order Comment: Micro scopic examination is performed on all urinalysis samples and only positive findings are reported. The test for blood on the chemical analytic portion of urinalysis may also be positive due to hemoglobinuria and myoglobinuria and if red blood cells are present they are quantified by microscopic examination. Performed By: #### 4 6625 #### LAB [address] [address] Moody Martinez M.D. [id number] Color (U) Yellow Normal Colorless, Yellow [facility] Comment on above: Order Comment: Micro scopic examination is performed on all urinalysis samples and only positive findings are reported. The test for blood on the chemical analytic portion of urinalysis may also be positive due to hemoglobinuria and myoglobinuria and if red blood cells are present they are quantified by microscopic examination. Performed By: #### 4 6625 #### LAB [address] [address] Moody Martinez M.D. [id number] Glucose Ql (U) >=500 Abnormal Negative [facility] Comment on above: Order Comment: Micro scopic examination is performed on all urinalysis samples and only positive findings are reported. The test for blood on the chemical analytic portion of urinalysis may also be positive due to hemoglobinuria and myoglobinuria and if red blood cells are present they are quantified by microscopic examination. Performed By: #### 4 6625 #### LAB [address] [id number] Moody Martinez M.D. [id number] Hyaline casts LM Ql (Urine sed) 3-5 Abnormal 0-2 [facility] Comment on above: Order Comment: Micro scopic examination is performed on all urinalysis samples and only positive findings are reported. The test for blood on the chemical analytic portion of urinalysis may also be positive due to hemoglobinuria and myoglobinuria and if red blood cells are present they are quantified by microscopic examination. Performed By: #### 4 6625 #### LAB [address] [address] Moody Martinez M.D. [id number] Ketones Ql (U) Trace Abnormal Negative [facility] Comment on above: Order Comment: Micro scopic examination is performed on all urinalysis samples and only positive findings are reported. The test for blood on the chemical analytic portion of urinalysis may also be positive due to hemoglobinuria and myoglobinuria and if red blood cells are present they are quantified by microscopic examination. Performed By: #### 4 6625 #### LAB [address] [place] [address] Moody Martinez M.D. [id number] Leukocyte esterase Test strip Ql (U) Negative Normal Negative [facility] Comment on above: Order Comment: Micro scopic examination is performed on all urinalysis samples and only positive findings are reported. The test for blood on the chemical analytic portion of urinalysis may also be positive due to hemoglobinuria and myoglobinuria and if red blood cells are present they are quantified by microscopic examination. Performed By: #### 4 6625 #### LAB [address] [address] Moody Martinez M.D. [id number] MUCUS, URINE Rare Normal None Seen, Rare [facility] Comment on above: Order Comment: Micro scopic examination is performed on all urinalysis samples and only positive findings are reported. The test for blood on the chemical analytic portion of urinalysis may also be positive due to hemoglobinuria and myoglobinuria and if red blood cells are present they are quantified by microscopic examination. Performed By: #### 4 6625 #### LAB [address] [address] Moody Martinez M.D. [id number] NITRITE, URINE Negative Normal Negative [facility] Comment on above: Order Comment: Micro scopic examination is performed on all urinalysis samples and only positive findings are reported. The test for blood on the chemical analytic portion of urinalysis may also be positive due to hemoglobinuria and myoglobinuria and if red blood cells are present they are quantified by microscopic examination. Performed By: #### 4 6625 #### LAB [address] [address] Moody Martinez M.D. [id number] pH (U) 5.5 [pH] Normal 5.0-7.0 [facility] Comment on above: Order Comment: Micro scopic examination is performed on all urinalysis samples and only positive findings are reported. The test for blood on the chemical analytic portion of urinalysis may also be positive due to hemoglobinuria and myoglobinuria and if red blood cells are present they are quantified by microscopic examination. Performed By: #### 4 6625 #### LAB [address] [address] Moody Martinez M.D. [id number] PROTEIN, URINE Negative Normal Negative [facility] Comment on above: Order Comment: Micro scopic examination is performed on all urinalysis samples and only positive findings are reported. The test for blood on the chemical analytic portion of urinalysis may also be positive due to hemoglobinuria and myoglobinuria and if red blood cells are present they are quantified by microscopic examination. Performed By: #### 4 6625 #### LAB [address] [address] Moody Martinze M.D. [id number] RBC LM.HPF (Urine sed) [#/Area] 1 /[HPF] Normal 0-3 [facility] Comment on above: Order Comment: Micro scopic examination is performed on all urinalysis samples and only positive findings are reported. The test for blood on the chemical analytic portion of urinalysis may also be positive due to hemoglobinuria and myoglobinuria and if red blood cells are present they are quantified by microscopic examination. Performed By: #### 4 6625 #### LAB [address] [place], [place] [address] Moody Martinez M.D. [id number] Specific gravity (U) [Rel density] 1.012 Normal 1.005-1.025 [facility] Comment on above: Order Comment: Micro scopic examination is performed on all urinalysis samples and only positive findings are reported. The test for blood on the chemical analytic portion of urinalysis may also be positive due to hemoglobinuria and myoglobinuria and if red blood cells are present they are quantified by microscopic examination. Performed By: #### 4 6625 #### LAB [address] [address] Moody Martinez M.D. [id number] UROBILINOGEN, URINE <2.0 Normal <2.0 [facility] Comment on above: Order Comment: Micro scopic examination is performed on all urinalysis samples and only positive findings are reported. The test for blood on the chemical analytic portion of urinalysis may also be positive due to hemoglobinuria and myoglobinuria and if red blood cells are present they are quantified by microscopic examination. Performed By: #### 4 6625 #### LAB [address] [address] Moody Martinez M.D. [id number] WBC LM.HPF (Urine sed) [#/Area] 1 /[HPF] Normal 0-5 [facility] Comment on above: Order Comment: Micro scopic examination is performed on all urinalysis samples and only positive findings are reported. The test for blood on the chemical analytic portion of urinalysis may also be positive due to hemoglobinuria and myoglobinuria and if red blood cells are present they are quantified by microscopic examination. Performed By: #### 4 6625 #### LAB [address] [place], [place] [address] Moody Martinez M.D. [id number] URINE AEROBIC CULTUREon 02-01 URINE AEROBIC CULTURE URINE CULTURE < 10,000 CFU/mL of normal urogenital microbiota Normal [facility] Comment on above: Performed By: #### 4 4053 ####[facility] [address] [address] Jose Cisse M.D. [id number] XR CHEST PA/APon 02-28-2025 XR CHEST PA/AP [...] on WedFeb 28, 2025 4:00:36 AM EDT [facility] Comment on above: Order Comment: [...] established Performed By: #### 6 517, 7909, 20723 #### [facility] [address], [address] [place] [address] [employer]: Jadon Velez MD ALBUMIN/CREATININE RATIO, RANDOM URINE [...] category. Performed By: #### 6 517, 7909, 64782 #### [facility] [address] [address] [employer]: Jadon Velez MD Creatinine (U) [Mass/Vol] 57 mg/dL Normal 20-320 [facility] Comment on above: Performed By: #### 6 517, 7909, 73980 #### [facility] [address] [address] [employer]: Jadon Velez MD [facility] METABOLIC PANE [facility] 02-13-2025 Albumin [Mass/Vol] 4.3 g/dL Normal 3.6-5.1 [facility] Comment on above: Performed By: #### 8 66, 7600, 496, 41297, 76074 #### [facility] [address] [place] [address] [employer]: Jadon Velez MD Albumin/Globulin [Mass ratio] 1.7 {ratio} Normal 1.0-2.5 [facility] Comment on above: Performed By: #### 8 66, 7600, 496, 70289, 11447 #### [facility] [address] [place] [address] [employer]: Jadon Velez MD ALP [Catalytic activity/Vol] 61 U/L Normal 35-144 [facility] Comment on above: Performed By: #### 8 66, 7600, 496, 24322, 32228 #### [facility] [address] [place] [address] [employer]: Jadon Velez MD ALT [Catalytic activity/Vol] 12 U/L Normal 9-46 [facility] Comment on above: Performed By: #### 8 66, 7600, 496, 19558, 23258 #### [facility] [address] [address] [employer]: Jadon Velez MD AST [Catalytic activity/Vol] 16 U/L Normal 10-35 [facility] Comment on above: Performed By: #### 8 66, 7600, 496, 16444, 73249 #### [facility] [address] [address] [employer]: Jadon Velez MD Bilirubin [Mass/Vol] 0.5 mg/dL Normal 0.2-1.2 [facility] Comment on above: Performed By: #### 8 66, 7600, 496, 78386, 38219 #### [facility] [address] [address] [employer]: Jadon Velez MD Calcium [Mass/Vol] 9.3 mg/dL Normal 8.6-10.3 [facility] Comment on above: Performed By: #### 8 66, 7600, 496, 37624, 51495 #### [facility] [address] [place] [address] [employer]: Jadon Velez MD Chloride [Moles/Vol] 102 mmol/L Normal 98-110 [facility] Comment on above: Performed By: #### 8 66, 7600, 496, 96926, 51566 #### [facility] [address] [place] [address] [employer]: Jadon Velez MD CO2 [Moles/Vol] 28 mmol/L Normal 20-32 [facility] Comment on above: Performed By: #### 8 66, 7600, 496, 70507, 47221 #### [facility] [address] [place] [address] [employer]: Jadon Velez MD Creatinine [Mass/Vol] 1.76 mg/dL High 0.70-1.[address] [facility] Comment on above: Performed By: #### 8 66, 7600, 496, 49564, 59783 #### [facility] [address] [place] [address] [employer]: Jadon Velez MD GFR/1.73 sq M.predicted among non-blacks MDRD (S/P/Bld) [Vol rate/Area] 38 mL/min/{1.73_m2} Low > OR = 60 [facility] Comment on above: Performed By: #### 8 66, 7600, 496, 91398, 08817 #### [facility] [address] [address] [employer]: Jadon Velez MD Globulin (S) [Mass/Vol] 2.6 g/dL Normal 1.9-3.7 [facility] Comment on above: Performed By: #### 8 66, 7600, 496, 88835, 52488 #### [facility] [address] [address] [employer]: Jadon Velez MD Glucose [Mass/Vol] 242 mg/dL High 65-99 [facility] Comment on above: Result Comment: Fasting reference interval For someone without known diabetes, a glucose value >125 mg/dL indicates that they may have diabetes and this should be confirmed with a follow-up test. Performed By: #### 8 66, 7600, 496, 68571, 87824 #### [facility] [address] [place] [address] [employer]: Jadon Velez MD Potassium [Moles/Vol] 4.6 mmol/L Normal 3.5-5.[address] [facility] Comment on above: Performed By: #### 8 66, 7600, 496, 87401, 21739 #### [facility] [place] [address] [employer]: Jadon Velez MD Protein [Mass/Vol] 6.9 g/dL Normal 6.1-8.1 [facility] Comment on above: Performed By: #### 8 66, 7600, 496, 35957, 55819 #### [facility] [address] [place] [address] [employer]: Jadon Velez MD Sodium [Moles/Vol] 140 mmol/L Normal 135-146 [facility] Comment on above: Performed By: #### 8 66, 7600, 496, 00669, 92406 #### [facility] [address] [place] [address] [employer]: Jadon Velez MD Urea nitrogen [Mass/Vol] 38 mg/dL High 7-25 [facility] Comment on above: Performed By: #### 8 66, 7600, 496, 09026, 94012 #### [facility] [address] [place] [address] [employer]: Jadon Velez MD Urea nitrogen/Creatinine [Mass ratio] 22 mg/mg Normal 6-22 [facility] Comment on above: Performed By: #### 8 66, 7600, 496, 08657, 30156 #### [facility] [place] [address] [employer]: Jadon Velez MD COMPREHENSIVE METABOLIC PANE L W/ANION GAPon 02-13-2025 Albumin [Mass/Vol] 4.3 g/dL Normal 3.6-5.1 [facility] Comment on above: Performed By: #### 9 2498 #### [facility] [address] [place] [address] [employer]: Jadon Velez MD ALP [Catalytic activity/Vol] 60 U/L Normal 35-144 [facility] Comment on above: Performed By: #### 9 5168 #### [facility] [address] [place] [address] [employer]: Jadon Velez MD ALT [Catalytic activity/Vol] 11 U/L Normal 9-46 [facility] Comment on above: Performed By: #### 9 8018 #### [facility] of [address] [place] [address] [employer]: Jadon Velez MD AST [Catalytic activity/Vol] 15 U/L Normal 10-35 [facility] Comment on above: Performed By: #### 9 2498 #### [facility] [address] [place] [address] [employer]: Jadon Velez MD Bilirubin [Mass/Vol] 0.5 mg/dL Normal 0.2-1.2 [facility] Comment on above: Performed By: #### 9 2498 #### [facility] [address] [place] [address] [employer]: Jadon Velez MD Calcium [Mass/Vol] 9.3 mg/dL Normal 8.6-10.3 [facility] Comment on above: Performed By: #### 9 2498 #### [facility] [place] [address] [employer]: Jadon Velez MD Chloride [Moles/Vol] 102 mmol/L Normal 98-110 [facility] Comment on above: Performed By: #### 9 2498 #### [facility] [address] [place] [address] [employer]: Jadon Velez MD CO2 [Moles/Vol] 28 mmol/L Normal 20-32 [facility] Comment on above: Performed By: #### 9 2498 #### [facility] [address] [place] [address] [employer]: Jadon Velez MD Creatinine [Mass/Vol] 1.80 mg/dL High 0.70-1.[address] [facility] Comment on above: Performed By: #### 9 2498 #### [facility] [place] [address] [employer]: Jadon Velez MD ELECTROLYTE BALANCE 10 mmol/L (calc) Normal 7-17 [facility] Comment on above: Performed By: #### 9 7748 #### [facility] of [address] [place] [address] [employer]: Jadon Velez MD GFR/1.73 sq M.predicted among non-blacks MDRD (S/P/Bld) [Vol rate/Area] 37 mL/min/{1.73_m2} Low > OR = 60 [facility] Comment on above: Performed By: #### 9 2498 #### [facility] [address], [address] [place] [address] [employer]: Jadon Velez MD Glucose [Mass/Vol] 241 mg/dL High 65-99 [facility] Comment on above: Result Comment: Fasting reference interval For someone without known diabetes, a glucose value >125 mg/dL indicates that they may have diabetes and this should be confirmed with a follow-up test. Performed By: #### 9 2498 #### [facility] [place] [address] [employer]: Jadon Velez MD Potassium [Moles/Vol] 4.7 mmol/L Normal 3.5-5.3 [facility] Comment on above: Performed By: #### 9 2498 #### [facility] [place] [address] [employer]: Jadon Velez MD Protein [Mass/Vol] 6.7 g/dL Normal 6.1-8.1 [facility] Comment on above: Performed By: #### 9 2498 #### [facility] [address], [address] [place] [address] [employer]: Jadon Velez MD Sodium [Moles/Vol] 140 mmol/L Normal 135-146 [facility] Comment on above: Performed By: #### 9 2498 #### [facility] [place] [address] [employer]: Jadon Velez MD Urea nitrogen [Mass/Vol] 38 mg/dL High 7-25 [facility] Comment on above: Performed By: #### 9 2498 #### [facility] [address], [address] [place], [place] [address] [employer]: Jadon Velez MD Comprehensive metabolic 2000 panelon 02-13-2025 Albumin [Mass/Vol] 4.3 g/dL 3.6 - 5.1 g/dL [facility] Albumin/Globulin [Mass ratio] 1.7 {ratio} [facility] ALP [Catalytic activity/Vol] 61 U/L 35 - 144 U/L [facility] ALT [Catalytic activity/Vol] 12 U/L 9 - 46 U/L [facility] AST [Catalytic activity/Vol] 16 U/L 10 - 35 U/L [facility] Bilirubin [Mass/Vol] 0.5 mg/dL 0.2 - 1 .2 mg/dL [facility] Calcium [Mass/Vol] 9.3 mg/dL 8.6 - 10. 3 mg/dL [facility] Chloride [Moles/Vol] 102 mmol/L 98 - 11 0 mmol/L [facility] CO2 [Moles/Vol] 28 mmol/L 20 - 32 mmol/L [facility] Creatinine [Mass/Vol] 1.76 mg/dL High 0.70 - 1.22 mg/dL [facility] GFR/1.73 sq M.predicted among non-blacks MDRD (S/P/Bld) [Vol rate/Area] 38 mL/min/{1.73_m2} Low > OR = 60 mL/min/1.73m2 [facility] Globulin (S) [Mass/Vol] 2.6 g/dL [facility] Glucose [Mass/Vol] 242 mg/dL High 65 - 99 mg/dL [facility] Comment on above: Fasting reference interval For someone without known diabetes, a glucose value >125 mg/dL indicates that they may have diabetes and this should be confirmed with a follow-up test. Interpretation and review of laboratory results Abnormal [facility] Potassium [Moles/Vol] 4.6 mmol/L 3.5 - 5.3 mmol/L [facility] Protein [Mass/Vol] 6.9 g/dL 6.1 - 8.1 g/dL [facility] Sodium [Moles/Vol] 140 mmol/L 135 - 146 mmol/L [facility] Urea nitrogen [Mass/Vol] 38 mg/dL High 7 - 25 mg/d L [facility] Urea nitrogen/Creatinine [Mass ratio] 22 mg/mg [facility] HEMOGLOBIN A1con 02-13-2025 HbA1c (Bld) [Mass [...] Performed By: #### 8 66, 7600, 496, 70903, 06458 #### [facility] [address], [address] [place] [address] [employer]: Jadon Velez MD HbA1c (Bld) [Mass fraction]o n 02-13-2025 Interpretation and review of laboratory results Abnormal [facility] Hemoglobin A1con 02-13-2025 HbA1c (Bld) [Mass fraction] 7.4 % High NINF - 5.7 % [facility] Comment on above: For someone without [...] Performed By: #### 8 66, 7600, 496, 33546, 04244 #### [facility] [address], [address] [place] [address] [employer]: Jadon Velez MD Cholesterol in HDL [Mass/Vol] 57 mg/dL Normal > OR = 40 [facility] Comment on above: Performed By: #### 8 66, 7600, 496, 73907, 72049 #### [facility] [place] [address] [place] [address] [employer]: Jadon Velez MD Cholesterol in LDL [Mass/Vol] [...] Ramon SORIA et al. ANA LAURA. 2013;310(19): 0136-9555 (http://education.[employer]/faq/BYD708) Performed By: #### 8 66, 7600, 496, 93231, 91585 #### [facility] [place] [address] [employer]: Jadon Velez MD Cholesterol.total/Cholest santos in HDL [Mass ratio] 2.6 {ratio} Normal <5.0 [facility] Comment on above: Performed By: #### 8 66, 7600, 496, 76312, 99723 #### [facility] [place] [address] [employer]: Jadon Velez MD NON HDL CHOLESTEROL 91 mg/dL (calc) Normal <130 [facility] Comment on above: Result Comment: For patients with diabetes plus 1 major ASCVD risk factor, treating to a non-HDL-C goal of <100 mg/dL (LDL-C of <70 mg/dL) is considered a therapeutic option. Performed By: #### 8 66, 7600, 496, 60644, 64652 #### [facility] [address], [address] [place] [address] [employer]: Jadon Velez MD Triglyceride [Mass/Vol] 85 mg/dL Normal <150 [facility] Comment on above: Performed By: #### 8 66, 7600, 496, 98447, 85762 #### [facility] [address], [address] [place] [address] [employer]: Jadon Velez MD Lipid 1996 panelon Cholesterol [Mass/Vol] 148 mg/dL [facility] - 200 mg/dL [facility] Cholesterol in HDL [Mass/Vol] 57 mg/dL > OR = 40 [facility] Cholesterol in LDL [Mass/Vol] 74 mg/dL mg/dL (calc) [facility] Comment on above: Reference range: <10 [...] Ramon SS et al. ANA LAURA. 2013;310(19): 6069-5422 (http://education.[employer]/faq/ZXQ234) Cholesterol non HDL [Mass/Vol] 91 mg/dL [facility] Comment on above: For patients with di abetes plus 1 major ASCVD risk factor, treating to a non-HDL-C goal of <100 mg/dL (LDL-C of <70 mg/dL) is considered a therapeutic option. Cholesterol.total/Cholest santos in HDL [Mass ratio] 2.6 {ratio} [facility] Triglyceride [Mass/Vol] 85 mg/dL [facility] - 150 mg/dL [facility] NOTEon 02-13-2025 NOTE Normal [facility] Comment on above: Result Comment: This urine was analyzed for the presence of WBC, RBC, bacteria, casts, and other formed elements. Only those elements seen were reported. Performed By: #### 9 2498 #### [facility] [address], [address] [place], [place] [id number] [employer]: Jadon Velez MD No Panel Informationon 02-13 [facility] T4, FREEon 02-13-2025 Free T4 [Mass/Vol] 1.4 ng/dL Normal 0.8-1.8 [facility] Comment on above: Performed By: #### 8 66, 9400, 496, 93004, 16509 #### [facility] [address], [address] [place], [place] [address] [employer]: Jadon Velez MD TSH W/REFLEX TO FT4on 2024 TSH W/REFLEX TO FT4 0.36 mIU/L Low 0.40-4.50 [facility] Comment on above: Performed By: #### 8 66, 7600, 496, 39381, 94369 #### [facility] of [address], [address] [place] [address] [employer]: Jadon Velez MD URINALYSIS REFLEXon 02-14-20 25 Appearance (U) CLEAR Normal CLEAR [facility] Comment on above: Performed By: #### 9 2498 #### [facility] of [place] [address] [employer]: Jadon Velez MD BACTERIA NONE SEEN Normal NONE SEEN [facility] Comment on above: Performed By: #### 9 2498 #### [facility] [place] [address] [employer]: Jadon Velez MD Bilirubin Ql (U) Negative Normal NEGATIVE [facility] Comment on above: Performed By: #### 9 2498 #### [facility] of [place] [address] [employer]: Jadon Velez MD Color (U) YELLOW Normal YELLOW [facility] Comment on above: Performed By: #### 9 2498 #### [facility] of [place] [address] [employer]: Jadon Velez MD Glucose Ql (U) Negative Normal NEGATIVE [facility] Comment on above: Performed By: #### 9 2498 #### [facility] of [place] [address] [employer]: Jadon Velez MD HYALINE CAST NONE SEEN Normal NONE SEEN [facility] Comment on above: Performed By: #### 9 2498 #### [facility] of [place] [address], [address] [place] [address] [employer]: Jadon Velez MD Ketones Ql (U) Negative Normal NEGATIVE [facility] Comment on above: Performed By: #### 9 8608 #### [facility] of [address], [address] [place] [address] [employer]: Jadon Velez MD Leukocyte esterase Test strip Ql (U) TRACE Abnormal NEGATIVE [facility] Comment on above: Performed By: #### 9 9498 #### [facility] of [place] [address] [employer]: Jadon Velez MD Nitrite Ql (U) Negative Normal NEGATIVE [facility] Comment on above: Performed By: #### 9 8758 #### [facility] of [place] [address] [employer]: Jadon Velez MD OCCULT BLOOD Negative Normal NEGATIVE [facility] Comment on above: Performed By: #### 9 2498 #### [facility] of [place] [address] [employer]: Jadon Velez MD pH (U) 6.0 [pH] Normal 5.0-8.0 [facility] Comment on above: Performed By: #### 9 1968 #### [facility] of [place] [address] [employer]: Jadon Velez MD Protein Ql (U) 1+ Abnormal NEGATIVE [facility] Comment on above: Performed By: #### 9 2858 #### [facility] of [place] [address] [employer]: Jadon Velez MD RBC NONE SEEN Normal < OR = 2 [facility] Comment on above: Performed By: #### 9 2818 #### [facility] of [place] [address] [employer]: Jadon Velez MD Specific gravity (U) [Rel density] 1.011 Normal 1.001-1.035 [facility] Comment on above: Performed By: #### 9 1068 #### [facility] of [place] [address] [employer]: Jadon Velez MD SQUAMOUS EPITHELIAL CELLS NONE SEEN Normal < OR = 5 [facility] Comment on above: Performed By: #### 9 2498 #### [facility] [address] , [address] [employer]: Jadon Velez MD WBC 0-5 Normal < OR = 5 [facility] Comment on above: Performed By: #### 9 2498 #### [facility] [address] [place], [place] [address] , [address] [place] [address] [employer]: Jadon Velez MD Anion gap in Serum or Plasma Ordered By: Kerwin Tamayo on 02-06-2025 Anion gap [Moles/Vol] 12 mmol/L 5-15 [facility] BUN/creatinine ratioOrdered By: Kerwin Tamayo on 02-06-2025 Urea nitrogen/Creatinine [Mass ratio] 23.1 mg/mg High 10- [facility] Basic Metabolic Profile (BMP )on 02-06-2025 BUN/CRE 23.1 RATIO High 10-20 [facility] Comment on above: Performed By: #### L 500.2500, L100.0500 ####[facility] [address] [place], [address] Calcium [Mass/Vol] 9.1 mg/dL Normal 7.6-11.0 [facility] Comment on above: Performed By: #### L 500.2500, L100.0500 ####[facility] [address] [place], [address] Chloride [Moles/Vol] 103 mmol/L Normal 98-108 [facility] Comment on above: Performed By: #### L 500.2500, L100.0500 ####[facility] [address] [place], [address] CO2 [Moles/Vol] 23.7 mmol/L Normal 21.0-32.0 [facility] Comment on above: Performed By: #### L 500.2500, L100.0500 ####[facility] [address] [place], [address] Creatinine [Mass/Vol] 1.88 mg/dL High 0.70-1.20 [facility] Comment on above: Performed By: #### L 500.2500, L100.0500 ####[facility] [address] [place], [address] GAP 12 Normal 5-15 [facility] Comment on above: Performed By: #### L 500.2500, L100.0500 ####[facility] [address] [place], [address] GFR/1.73 sq M.predicted among non-blacks MDRD (S/P/Bld) [Vol rate/Area] 35 mL/min/{1.73_m2} Low >60 [facility] Comment on above: Result Comment: mL/m in/1.73m2 CKD-EPI Creatinine Equation (2020) Performed By: #### L 500.2500, L100.0500 ####[facility] [address] [place], [address] Glucose [Mass/Vol] 287 mg/dL High 70-99 [facility] Comment on above: Performed By: #### L 500.2500, L100.0500 ####[facility] [address] [place], [address] Potassium [Moles/Vol] 4.4 mmol/L Normal 3.3-5.1 [facility] Comment on above: Performed By: #### L 500.2500, L100.0500 ####[facility] [address] [place], [address] Sodium [Moles/Vol] 139 mmol/L Normal 133-145 [facility] Comment on above: Performed By: #### L 500.2500, L100.0500 ####[facility] [address] [place], [address] Urea nitrogen [Mass/Vol] 44 mg/dL High 4-19 [facility] Comment on above: Performed By: #### L 500.2500, L100.0500 ####[facility] [address] [place], [address] CBC-Complete Blood Cnt No Di ffon 02-06-2025 Erythrocyte distribution width (RBC) [Ratio] 13.0 % Normal 11.6-14.6 [facility] Comment on above: Performed By: #### L 500.2500, L100.0500 ####[facility] [address] [place], [address] Hematocrit (Bld) [Volume fraction] 33.8 % Low 40-54 [facility] Comment on above: Performed By: #### L 500.2500, L100.0500 ####[facility] [address] [place], [address] Hemoglobin (Bld) [Mass/Vol] 11.0 g/dL Low 13.0-16.5 [facility] Comment on above: Performed By: #### L 500.2500, L100.0500 ####[facility] [address] [place], [address] MCH (RBC) [Entitic mass] 31.0 pg Normal 27.0-32.0 [facility] Comment on above: Performed By: #### L 500.2500, L100.0500 ####[facility] [address] [place], [address] MCHC (RBC) [Mass/Vol] 32.5 g/dL Normal 32-36 [facility] Comment on above: Performed By: #### L 500.2500, L100.0500 ####[facility] [address] [place], [address] MCV (RBC) [Entitic vol] 95.2 fL High 80-94 [facility] Comment on above: Performed By: #### L 500.2500, L100.0500 ####[facility] [address] [place], [address] Platelet mean volume (Bld) [Entitic vol] 11.2 fL Normal 6.2-12.0 [facility] Comment on above: Performed By: #### L 500.2500, L100.0500 ####[facility] [address] [place], [address] Platelets (Bld) [#/Vol] 239 10*3/uL Normal 150-450 [facility] Comment on above: Performed By: #### L 500.2500, L100.0500 ####[facility] [address] [place], [address] RBC (Bld) [#/Vol] 3.55 10*6/uL Low 4.6-6.2 [facility] Comment on above: Performed By: #### L 500.2500, L100.0500 ####[facility] [address] [place], [address] RDW SD 45.3 fl High 35.1-43.9 [facility] Comment on above: Performed By: #### L 500.2500, L100.0500 ####[facility] [address] [place], [address] WBC (Bld) [#/Vol] 8.9 10*3/uL Normal 4.4-11.0 [facility] Comment on above: Performed By: #### L 500.2500, L100.0500 ####[facility] [address] [place], [address] Carbon dioxide, total [Moles /volume] in Central venous bloodOrdered By: Kerwin Tamayo on 02-06-2025 CO2 [Moles/Vol] 23.7 mmol/L 21.0-32.0 [facility] Chloride assayOrdered By: Daniela Tamayo on 02-06-2025 Chloride [Moles/Vol] 103 mmol/L 98-108 [facility] Erythrocyte distribution wid th (RBC) [Ratio]Ordered By: Kerwin Tamayo on 02-06-2025 Erythrocyte distribution width (RBC) [Entitic vol] 45.3 fL High 35.1-43.9 [facility] Erythrocyte distribution wid th ratioOrdered By: Kerwin Tamayo on 02-06-2025 Erythrocyte distribution width (RBC) [Ratio] 13.0 % 11.6-14.6 [facility] Erythrocyte distribution wid th standard deviationOrdered By: Kerwin Tamayo on 02-06-2025 Erythrocyte distribution width (RBC) [Ratio] 45.3 fl High 35.1-43.9 [facility] GFR/1.73 sq M.predicted park g non-blacks MDRD (S/P/Bld) [Vol rate/Area]Ordered By: Kerwin Tamayo on 02-06-2025 Estimated GFR (MDRD) Non-Af Amer 35 Low >60 [facility] Comment on above: mL/min/1.73m2 CKD-EP I Creatinine Equation (2020) Glomerular filtration rate ( GFR) estimation/1.73 sq m using serum, plasma, or whole bOrdered By: Kerwin Tamayo on 02-06-2025 GFR/1.73 sq M.predicted among non-blacks MDRD (S/P/Bld) [Vol rate/Area] 35 mL/min/{1.73_m2} Low >60 [facility] Comment on above: mL/min/1.73m2 CKD-EP I Creatinine Equation (2020) Hematocrit Auto (Bld) [Volum e fraction]Ordered By: Kerwin Tamayo on 02-06-2025 Hematocrit (Bld) [Volume fraction] 33.8 % Low 40-54 [facility] Hemoglobin measurementOrdere d By: Kerwin Tamayo on 02-06-2025 Hemoglobin (Bld) [Mass/Vol] 11.0 g/dL Low 13.0-16.5 [facility] MCV (mean corpuscular volume ) determinationOrdered By: Kerwin Tamayo on 02-06-2025 MCV (RBC) [Entitic vol] 95.2 fL High 80-94 [facility] Mean corpuscular hemoglobin (MCH) determinationOrdered By: Kerwin Tamayo on 02-06-2025 MCH (RBC) [Entitic mass] 31.0 pg 27.0-32.0 [facility] Mean corpuscular hemoglobin concentration (MCHC) determinationOrdered By: Kerwin Tamayo on 02-06-2025 MCHC (RBC) [Mass/Vol] 32.5 g/dL 32-36 [facility] Mean platelet volume determi nationOrdered By: Kerwin Tamayo on 02-06-2025 Platelet mean volume (Bld) [Entitic vol] 11.2 fL 6.2-12.0 [facility] Platelet countOrdered By: Daniela Tamayo on 02-06-2025 Platelets (Bld) [#/Vol] 239 10*3/uL 150-450 [facility] Potassium (Unsp spec) [Mass/ Vol]Ordered By: Kerwin Tamayo on 02-06-2025 Potassium [Moles/Vol] 4.4 mmol/L 3.3-5.1 [facility] Potassium measurement (mass/ volume)Ordered By: Kerwin Tamayo on 02-06-2025 Potassium (Unsp spec) [Mass/Vol] 4.4 mmol/L 3.3-5.1 [facility] RBC Auto (Bld) [#/Vol]Ordere d By: Kerwin Tamayo on 02-06-2025 RBC (Bld) [#/Vol] 3.55 10*6/uL Low 4.6-6.2 [facility] Serum creatinine measurement (mass/volume)Ordered By: Kerwin Tamayo on 02-06-2025 Creatinine [Mass/Vol] 1.88 mg/dL High 0.70-1.20 [facility] Serum glucose measurement (m ass/volume)Ordered By: Kerwin Tamayo on 02-06-2025 Glucose [Mass/Vol] 287 mg/dL High 70-99 [facility] Serum or plasma calcium nikkie urement (mass/volume)Ordered By: Kerwin Tamayo on 02-06-2025 Calcium [Mass/Vol] 9.1 mg/dL 7.6-11.0 [facility] Serum or plasma urea nitroge n measurement (mass/volume)Ordered By: Kerwin Tamayo on 02-06-2025 Urea nitrogen [Mass/Vol] 44 mg/dL High 4-19 [facility] Sodium levelOrdered By: Aaron Tamayo on 02-06-2025 Sodium [Moles/Vol] 139 mmol/L 133-145 [facility] White blood cell (WBC) count Ordered By: Kerwin Tamayo on 02-06-2025 WBC (Bld) [#/Vol] 8.9 10*3/uL 4.4-11.0 [facility] CBC W Auto Differential pane l (Bld)on 11-06-2024 Basophils (Bld) [#/Vol] 0.08 x10*3/uL Normal 0.00-0.10 [facility] Comment on above: Performed By: #### 5 7021-8 #### MAGGI PARNELL ([id number]) [facility] ([facility]) [address] [place] [place] [address] Basophils/100 WBC (Bld) 0.8 % Normal 0.0-2.0 [facility] Comment on above: Performed By: #### 5 7021-8 #### MAGGI PARNELL ([id number]) [facility] ([facility]) [address] [place] [place] [address] Eosinophils (Bld) [#/Vol] 0.42 x10*3/uL High 0.00-0. 40 [facility] Comment on above: Performed By: #### 5 7021-8 #### MAGGI PARNELL ([id number]) [facility] ([facility]) [address] [place] [address] Eosinophils/100 WBC (Bld) 4.4 % Normal 0.0-6.0 [facility] Comment on above: Performed By: #### 5 7021-8 #### MAGGI PARNELL ([id number]) [facility] ([facility]) [address] [place] [address] Erythrocyte distribution width (RBC) [Ratio] 14.5 % Normal 11.5-14.5 [facility] Comment on above: Performed By: #### 5 7021-8 #### MAGGI PARNELL ([id number]) [facility] ([facility]) [address] [place] [address] Hematocrit (Bld) [Volume fraction] 34.5 % Low 41.0-52.0 [facility] Comment on above: Performed By: #### 5 7021-8 #### MAGGI PARNELL ([id number]) [facility] ([facility]) [address] [place] [address] Hemoglobin (Bld) [Mass/Vol] 10.6 g/dL Low 13.5-17.5 [facility] Comment on above: Performed By: #### 5 7021-8 #### MAGGI PARNELL ([id number]) [facility] ([facility]) [address] [place] [address] Immature granulocytes (Bld) [#/Vol] 0.03 x10*3/uL Normal 0.00-0.50 [facility] Comment on above: Performed By: #### 5 7021-8 #### MAGGI PARNELL ([id number]) [facility] ([facility]) [address] [place] [address] Immature granulocytes/100 WBC (Bld) 0.3 % Normal 0.0-0.9 [facility] Comment on above: Result Comment: Arielle ture Granulocyte Count (IG) includes promyelocytes, myelocytes and metamyelocytes but does not include bands. Percent differential counts (%) should be interpreted in the context of the absolute cell counts (cells/UL). Performed By: #### 5 7021-8 #### MAGGI PARNELL ([id number]) [facility] ([facility]) [address] [place], [place] [address] Lymphocytes (Bld) [#/Vol] 2.35 x10*3/uL Normal 0.80-3. 00 [facility] Comment on above: Performed By: #### 5 7021-8 #### MAGGI PARNELL ([id number]) [facility] ([facility]) [facility] [place] [address] Lymphocytes/100 WBC (Bld) 24.5 % Normal 13.0-44.0 [facility] Comment on above: Performed By: #### 5 7021-8 #### MAGGI PARNELL ([id number]) [facility] ([facility]) [address] [place] [address] MCH (RBC) [Entitic mass] 30.3 pg Normal 26.0-34.0 [facility] Comment on above: Performed By: #### 5 7021-8 #### MAGGI PARNELL ([id number]) [facility] ([facility]) [address] [place] [address] MCHC (RBC) [Mass/Vol] 30.7 g/dL Low 32.0-36.0 [facility] Comment on above: Performed By: #### 5 7021-8 #### MAGGI PARNELL ([id number]) [facility] ([facility]) [address] [place] [place] [address] MCV (RBC) [Entitic vol] 99 fL Normal 80-100 [facility] Comment on above: Performed By: #### 5 7021-8 #### MAGGI PARNELL ([id number]) [facility] ([facility]) [address] [place] [address] Monocytes (Bld) [#/Vol] 0.82 x10*3/uL High 0.05-0.80 [facility] Comment on above: Performed By: #### 5 7021-8 #### MAGGI PARNELL ([id number]) [facility] ([facility]) [address] [place] [address] Monocytes/100 WBC (Bld) 8.6 % Normal 2.0-10.0 [facility] Comment on above: Performed By: #### 5 7021-8 #### MAGGI PARNELL ([id number]) [facility] ([facility]) [address] [place] [address] Neutrophils (Bld) [#/Vol] 5.89 x10*3/uL High 1.60-5. 50 [facility] Comment on above: Result Comment: Perc ent differential counts (%) should be interpreted in the context of the absolute cell counts (cells/uL). Performed By: #### 5 7021-8 #### MAGGI PARNELL ([id number]) [facility] ([facility]) [address] [place] [address] Neutrophils/100 WBC (Bld) 61.4 % Normal 40.0-80.0 [facility] Comment on above: Performed By: #### 5 7021-8 #### MAGGI PARNELL ([id number]) [facility] ([facility]) [address] [place] [address] 89146 Nucleated RBC/100 WBC (Bld) [Ratio] 0.0 /100 WBCs Normal 0.0-0.0 [facility] Comment on above: Performed By: #### 5 7021-8 #### MAGGI PARNELL ([id number]) [facility] ([facility]) [address] [place] [address] Platelets (Bld) [#/Vol] 229 x10*3/uL Normal 150-450 [facility] Comment on above: Performed By: #### 5 7021-8 #### MAGGI PARNELL ([id number]) [facility] ([facility]) [address] [place] [address] RBC (Bld) [#/Vol] 3.50 x10*6/uL Low 4.50-5.90 [facility] Comment on above: Performed By: #### 5 7021-8 #### MAGGI PARNELL ([id number]) [facility] ([facility]) [address] [place] [address] WBC (Bld) [#/Vol] 9.6 x10*3/uL Normal 4.4-11.3 [facility] Comment on above: Performed By: #### 5 7021-8 #### MAGGI PARNELL ([id number]) [facility] ([facility]) [address] [place] [address]794 Comprehensive metabolic 2000 panelon 11-06-2024 Albumin BCP dye [Mass/Vol] 3.7 g/dL Normal 3.4-5.0 [facility] Comment on above: Performed By: #### 1 4959-1 #### ALENA Paredes ([id number]) [facility] ([facility]) [address] [place] [address] ALP [Catalytic activity/Vol] 68 U/L Normal 33-136 [facility] Comment on above: Performed By: #### 1 4959-1 #### ALENA Paredes ([id number]) [facility] ([facility]) [id number] [place] [address] ALT With P-5'-P [Catalytic activity/Vol] 19 U/L Normal 10-52 [facility] Comment on above: Result Comment: Twila ents treated with Sulfasalazine may generate falsely decreased results for ALT. Performed By: #### 1 4959-1 #### ALENA Paredes ([id number]) [facility] ([facility]) [id number] [place] [address]22 Anion gap [Moles/Vol] 12 mmol/L Normal 10-20 [facility] Comment on above: Performed By: #### 1 4959-1 #### ALENA Paredes ([id number]) [facility] ([facility]) [id number] [place] [address] 31460 AST With P-5'-P [Catalytic activity/Vol] 19 U/L Normal 9-39 [facility] Comment on above: Performed By: #### 1 4959-1 #### ALENA Paredes ([id number]) [facility] ([facility]) [address] [place] [address] Bilirubin [Mass/Vol] 0.3 mg/dL Normal 0.0-1.2 [facility] Comment on above: Performed By: #### 1 4959-1 #### ALENA Paredes ([id number]) [facility] ([facility]) [address] [place] [address] Calcium [Mass/Vol] 8.9 mg/dL Normal 8.6-10.3 [facility] Comment on above: Performed By: #### 1 4959-1 #### ALENA Paredes ([id number]) [facility] ([facility]) [id number] [place] [address]139 Chloride [Moles/Vol] 108 mmol/L High 98-107 [facility] Comment on above: Performed By: #### 1 4959-1 #### ALENA Paredes ([id number]) [facility] ([facility]) [id number] [place] [address] 67657 CO2 [Moles/Vol] 23 mmol/L Normal 21-32 [facility] Comment on above: Performed By: #### 1 4959-1 #### ALENA Paredes ([id number]) [facility] ([facility]) [id number] [place] [address] 16549 Creatinine [Mass/Vol] 2.37 mg/dL High 0.50-1.30 [facility] Comment on above: Performed By: #### 1 4959-1 #### ALENA Paredes ([id number]) [facility] ([facility]) [id number] [place] [address] 12952 Glomerular filtration rate/1.73 sq M.predicted 27 mL/min/1.73m*2 Low >60 [facility] Comment on above: Result Comment: Calc ulations of estimated GFR are performed using the 2020 CKD-EPI Study Refit equation without the race variable for the IDMS-Traceable creatinine methods. https://jasn.asnjournals.org/content/early//ASN.20 72509652 Performed By: #### 1 4959-1 #### ALENA Paredes ([id number]) [facility] ([facility]) [id number] [place] [address] 64807 Glucose [Mass/Vol] 95 mg/dL Normal 74-99 [facility] Comment on above: Performed By: #### 1 4959-1 #### ALENA Paredes ([id number]) [facility] ([facility]) [address] [place] [address] Potassium [Moles/Vol] 4.9 mmol/L Normal 3.5-5.3 [facility] Comment on above: Performed By: #### 1 4959-1 #### ALENA Paredes ([id number]) [facility] ([facility]) [id number] [place] [address] 13820 Protein [Mass/Vol] 6.4 g/dL Normal 6.4-8.2 [facility] Comment on above: Performed By: #### 1 4959-1 #### ALENA Paredes ([id number]) [facility] ([facility]) [id number] [place] [address] 00647 Sodium [Moles/Vol] 138 mmol/L Normal 136-145 [facility] Comment on above: Performed By: #### 1 4959-1 #### ALENA Paredes ([id number]) [facility] ([facility]) [address] [place] [address] 80887 Urea nitrogen [Mass/Vol] 48 mg/dL High 6-23 [facility] Comment on above: Performed By: #### 1 4959-1 #### ALENA Paredes ([id number]) [facility] ([facility]) [address] [place] [address] [id number] HbA1c (Bld) [Mass fraction]o n 11-06-2024 Average glucose Estimated from glycated hemoglobin (Bld) [Mass/Vol] 220 mg/dL Normal Not Established [facility] Comment on above: Order Comment: Diagn osis of Gmaylpys-HpkuerIzv-Pitmolrd: < or = 5.6%Increased risk for developing diabetes: 5.7-6.4%Diagnostic of diabetes: > or = 6.5% Performed By: #### 1 4959-1 #### ALENA Paredes ([id number]) [facility] ([facility]) [address] [place] [address] [id number] Hemoglobin A1c/Hemoglobin.to alcira 11-06-2024 HbA1c (Bld) [Mass fraction] 9.3 % High See comment [facility] Comment on above: Order Comment: Diagn osis of Cevmqbrt-FgwcujVhk-Xrtfyggt: < or = 5.6%Increased risk for developing diabetes: 5.7-6.4%Diagnostic of diabetes: > or = 6.5% Performed By: #### 1 4959-1 #### ALENA Paredes ([id number]) [facility] ([facility]) [address] [place], [place] [id number] Thyrotropinon 11-06-2024 TSH Qn 2.65 m[IU]/L Normal 0.44-3.98 [facility] Comment on above: Order Comment: TSH t esting is performed using different testing methodology at [facility] than at [facility]. Direct result comparisons should only be made within the same method. Performed By: #### 1 4959-1 #### ALENA Paredes ([id number]) [facility] ([facility]) [address] [place] [address] Thyroxine.freeon 11-06-2024 Free T4 [Mass/Vol] 0.84 ng/dL Normal 0.61-1.12 [facility] Comment on above: Order Comment: Thyro xine Free testing is performed using different testing methodology at [facility] than at [facility]. 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 Performed By: #### 4 6124 #### LAB [address] [place] [id number] Moody Martinez M.D. 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 [id number] Anion gap [Moles/Vol] 17 mmol/L Normal 10-20 [facility] Comment on above: Order Comment: [facility] has implemented the eGFR calculation approach that does not have a coefficient for race that conforms to the NKF-ASN Task Force Recommendations. Performed By: #### 4 6124 #### LAB [address] [place], [place] [address] Moody Martinez M.D. [id number] Calcium [Mass/Vol] 8.5 mg/dL Normal 8.4-10.2 [facility] Comment on above: Order Comment: [facility] has implemented the eGFR calculation approach that does not have a coefficient for race that conforms to the NKF-ASN Task Force Recommendations. Performed By: #### 4 6124 #### LAB [address] [place] [address] Moody Martinez M.D. [id number] Chloride [Moles/Vol] 108 mmol/L Normal 98-108 [facility] Comment on above: Order Comment: [facility] has implemented the eGFR calculation approach that does not have a coefficient for race that conforms to the NKF-ASN Task Force Recommendations. Performed By: #### 4 6124 #### LAB [address] [place] [address] Moody Martinez M.D. [id number] Creatinine [Mass/Vol] 2.44 mg/dL High 0.80-1.30 [facility] Comment on above: Order Comment: [facility] has implemented the eGFR calculation approach that does not have a coefficient for race that conforms to the NKF-ASN Task Force Recommendations. Performed By: #### 4 6124 #### LAB [address] [place] [address] Moody Martinez M.D. [id number] EGFR 26 mL/min/1.73 m2 Low >=60 [facility] Comment on above: Order Comment: [facility] has implemented the eGFR calculation approach that does not have a coefficient for race that conforms to the NKF-ASN Task Force Recommendations. Result Comment: Albin mated GFR was calculated using the 2020 CKD-EPI creatinine equation. Performed By: #### 4 6124 #### LAB [address] [place] [address] Moody Martinez M.D. [id number] Glucose [Mass/Vol] 107 mg/dL High 65-99 [facility] Comment on above: Order Comment: [facility] has implemented the eGFR calculation approach that does not have a coefficient for race that conforms to the NKF-ASN Task Force Recommendations. Performed By: #### 4 6124 ####[facility] [address] [place] [address] Moody Martinez M.D. [id number] HCO3 (Bld) [Moles/Vol] 18 mmol/L Low 21-32 [facility] Comment on above: Order Comment: [facility] has implemented the eGFR calculation approach that does not have a coefficient for race that conforms to the NKF-ASN Task Force Recommendations. Performed By: #### 4 6124 #### LAB [address] [place] [address] Moody Martinez M.D. [id number] Potassium [Moles/Vol] 4.1 mmol/L Normal 3.5-5.1 [facility] Comment on above: Order Comment: [facility] has implemented the eGFR calculation approach that does not have a coefficient for race that conforms to the NKF-ASN Task Force Recommendations. Performed By: #### 4 6124 #### LAB [address] [place] [address] Moody Martinez M.D. [id number] Sodium [Moles/Vol] 139 mmol/L Normal 135-145 [facility] Comment on above: Order Comment: [facility] has implemented the eGFR calculation approach that does not have a coefficient for race that conforms to the NKF-ASN Task Force Recommendations. Performed By: #### 4 6124 #### LAB [address] [place] [address] Moody Martinez M.D. [id number] Urea nitrogen [Mass/Vol] 85 mg/dL High 8-25 [facility] Comment on above: Order Comment: [facility] has implemented the eGFR calculation approach that does not have a coefficient for race that conforms to the NKF-ASN Task Force Recommendations. Performed By: #### 4 6124 #### LAB [address] [place] [address] Moody Martinez M.D. [id number] Urea nitrogen/Creatinine [Mass ratio] 34.8 mg/mg High 10.0-20.0 [facility] Comment on above: Order Comment: [facility] has implemented the eGFR calculation approach that does not have a coefficient for race that conforms to the NKF-ASN Task Force Recommendations. Performed By: #### 4 6124 #### LAB [address] [place] [address] Moody Martinez M.D. [id number] BETA-HYDROXYBUTYRATEon 10-28 BETA-HYDROXYBUTYRATE 0.1 mmol/L Normal 0.0-0.3 [facility] Comment on above: Performed By: #### 4 5139 ####[facility] [address] [place], [place] [address] Moody Martinez M.D. [id number] BETA-HYDROXYBUTYRATE < Normal 0.0-0.3 [facility] Comment on above: Performed By: #### 4 5139 ####[facility] [address] [place], [place] [address] Moody Martinez M.D. [id number] Basic metabolic 2000 panelon 10-28-2024 Anion gap [Moles/Vol] 16 mmol/L 10 - 2 0 mmol/L [facility] Calcium [Mass/Vol] 8.5 mg/dL 8.4 - 10. 2 mg/dL [facility] Chloride [Moles/Vol] 108 mmol/L 98 - 10 8 mmol/L [facility] Creatinine [Mass/Vol] 2.31 mg/dL High 0.80 - 1.30 mg/dL [facility] GFR/1.73 sq M.predicted CKD-EPI (S/P/Bld) [Vol rate/Area] 28 Low - PINF [facility] Comment on above: Estimated GFR was ca lculated using the 2020 CKD-EPI creatinine equation. Glucose [Mass/Vol] 95 mg/dL 65 - 99 mg/dL [facility] HCO3 [Moles/Vol] 19 mmol/L Low 21 - 32 mmol/L [facility] Potassium [Moles/Vol] 4.1 mmol/L 3.5 - 5.1 mmol/L [facility] Sodium [Moles/Vol] 139 mmol/L 135 - 145 mmol/L [facility] Urea nitrogen [Mass/Vol] 82 mg/dL High 8 - 25 mg/d L [facility] Urea nitrogen/Creatinine [Mass ratio] 35.5 mg/mg High 10.0 - 20.0 [facility] has implemented the eGFR calculation approach that does not have a coefficient for race that conforms to the NKF-ASN Task Force Recommendations. [facility] Anion gap [Moles/Vol] 17 mmol/L 10 - 2 0 mmol/L [facility] Calcium [Mass/Vol] 8.5 mg/dL 8.4 - 10. 2 mg/dL [facility] Chloride [Moles/Vol] 108 mmol/L 98 - 10 8 mmol/L [facility] Creatinine [Mass/Vol] 2.44 mg/dL High 0.80 - 1.30 mg/dL [facility] GFR/1.73 sq M.predicted CKD-EPI (S/P/Bld) [Vol rate/Area] 26 Low - PINF [facility] Comment on above: Estimated GFR was ca lculated using the 2020 CKD-EPI creatinine equation. Glucose [Mass/Vol] 107 mg/dL High 65 - 99 mg/dL [facility] HCO3 [Moles/Vol] 18 mmol/L Low 21 - 32 mmol/L [facility] Potassium [Moles/Vol] 4.1 mmol/L 3.5 - 5.1 mmol/L [facility] Sodium [Moles/Vol] 139 mmol/L 135 - 145 mmol/L [facility] Urea nitrogen [Mass/Vol] 85 mg/dL High 8 - 25 mg/d L [facility] Urea nitrogen/Creatinine [Mass ratio] 34.8 mg/mg High 10.0 - 20.0 [facility] has implemented the eGFR calculation approach that does not have a coefficient for race that conforms to the NKF-ASN Task Force Recommendations. [facility] Anion gap [Moles/Vol] 16 mmol/L 10 - 2 0 mmol/L [facility] Calcium [Mass/Vol] 8.3 mg/dL Low 8.4 - 10. 2 mg/dL [facility] Chloride [Moles/Vol] 103 mmol/L 98 - 10 8 mmol/L [facility] Creatinine [Mass/Vol] 2.6 mg/dL High 0.80 - 1.30 mg/dL [facility] GFR/1.73 sq M.predicted CKD-EPI (S/P/Bld) [Vol rate/Area] 24 Low - PINF [facility] Comment on above: Estimated GFR was ca lculated using the 2020 CKD-EPI creatinine equation. Glucose [Mass/Vol] 495 mg/dL Critically high 65 - 99 mg/d L [facility] HCO3 [Moles/Vol] 18 mmol/L Low 21 - 32 mmol/L [facility] Potassium [Moles/Vol] 5 mmol/L 3.5 - 5.1 mmol/L [facility] Sodium [Moles/Vol] 132 mmol/L Low 135 - 145 mmol/L [facility] Urea nitrogen [Mass/Vol] 93 mg/dL High 8 - 25 mg/d L [facility] Urea nitrogen/Creatinine [Mass ratio] 35.8 mg/mg High 10.0 - 20.0 [facility] has implemented the eGFR calculation approach that does not have a coefficient for race that conforms to the NKF-ASN Task Force Recommendations. [facility] Beta hydroxybutyrate [Moles/ Vol]on 10-28-2024 Interpretation and review of laboratory results Normal [facility] Interpretation and review of laboratory results Normal [facility] Interpretation and review of laboratory results Abnormal [facility] Beta-Hydroxybutyrateon 10-28 Beta hydroxybutyrate [Moles/Vol] 0.1 mmol/L 0.0 - 0.3 mmol/L [facility] Beta hydroxybutyrate [Moles/Vol] mmol/L 0.0 - 0.3 mmol/L [facility] Beta hydroxybutyrate [Moles/Vol] 0.4 mmol/L High 0.0 - 0.3 mmol/L [facility] CBC Auto Differentialon 10-02 Basophils (Bld) [#/Vol] 0.08 10*3/uL [facility] Basophils/100 WBC (Bld) 0.8 % [facility] Eosinophils (Bld) [#/Vol] 0.06 10*3/uL [facility] Eosinophils/100 WBC (Bld) 0.6 % [facility] Erythrocyte distribution width (RBC) [Entitic vol] 13.6 % 11.6 - 14.8 % [facility] Hematocrit (Bld) [Volume fraction] 29 % Low 41.0 - 53.0 % [facility] Hemoglobin (Bld) [Mass/Vol] 9.3 g/dL Low 13.5 - 17.5 g/dL [facility] Immature granulocytes (Bld) [#/Vol] 0.03 10*3/uL [facility] Immature granulocytes/100 WBC (Bld) 0.3 % [facility] Comment on above: The IG parameter is the percentage of metamyelocytes, myelocytes and promyelocytes. An immature granulocyte count (IG) of 1% or more suggests the possibility of infection, an IG count of 3% is very likely related to an infection. Interpretation and review of laboratory results Abnormal [facility] Lymphocytes (Bld) [#/Vol] 2.94 10*3/uL [facility] Lymphocytes/100 WBC (Bld) 28.7 % [facility] MCH (RBC) [Entitic mass] 30.3 pg 26. 0 - 34.0 pg [facility] MCHC (RBC) [Mass/Vol] 32.1 g/dL 31.0 - 37.0 g/dL [facility] MCV (RBC) [Entitic vol] 94.5 fL 80.0 - 100.0 fL [facility] Monocytes (Bld) [#/Vol] 1.02 10*3/uL High [facility] Monocytes/100 WBC (Bld) 10 % [facility] Neutrophils (Bld) [#/Vol] 6.12 10*3/uL [facility] Neutrophils/100 WBC (Bld) 59.6 % [facility] Nucleated RBC (Bld) [#/Vol] 0 10*3/uL [facility] Nucleated RBC/100 WBC (Bld) [Ratio] 0 % [facility] Platelet mean volume (Bld) [Entitic vol] 10.8 fL 9.4 - 12.4 fL [facility] Platelets (Bld) [#/Vol] 188 10*3/uL [facility] RBC (Bld) [#/Vol] 3.07 10*6/uL Low [facility] WBC (Bld) [#/Vol] 10.25 10*3/uL [facility] CBC WITH AUTO DIFFERENTIALon 10-28-2024 AUTO NRBC 0.0 % Normal [facility] Comment on above: Performed By: #### L [id number] #### LAB [address] [place] [address] Moody Martinez M.D. [id number] AUTO NRBC ABS COUNT 0.00 K/mcL Normal 0.00-0.00 [facility] Comment on above: Performed By: #### L [id number] #### LAB [address] [place] [id number] Moody Martinez M.D. [id number] BASOPHILS ABSOLUTE COUNT 0.08 K/mcL Normal 0.00-0.30 [facility] Comment on above: Performed By: #### L [id number] #### LAB [address] [place] [address] Moody Martinez M.D. [id number] Basophils/100 WBC (Bld) 0.8 % Normal [facility] Comment on above: Performed By: #### L [id number] #### LAB [address] [place] [address] Moody Martinez M.D. [id number] Eosinophils (Bld) [#/Vol] 0.06 10*3/uL Normal 0.00-0.5 0 [facility] Comment on above: Performed By: #### L [id number] #### LAB [address] [place] [address] Moody Martinez M.D. [id number] Eosinophils/100 WBC (Bld) 0.6 % Normal [facility] Comment on above: Performed By: #### L [id number] #### LAB [address] [place] [address] Moody Martinez M.D. [id number] Erythrocyte distribution width (RBC) [Ratio] 13.6 % Normal 11.6-14.8 [facility] Comment on above: Performed By: #### L [id number] #### LAB [address] [place] [address] Moody Martinez M.D. [id number] Hematocrit (Bld) [Volume fraction] 29.0 % Low 41.0-53.0 [facility] Comment on above: Performed By: #### L [id number] #### LAB [address] [place] [address] Moody Martinez M.D. [id number] Hemoglobin (Bld) [Mass/Vol] 9.3 g/dL Low 13.5-17.5 [facility] Comment on above: Performed By: #### L [id number] #### LAB [address] [place] [address] Moody Martinez M.D. [id number] IG ABSOLUTE 0.03 K/mcL Normal 0.00-0.30 [facility] Comment on above: Performed By: #### L [id number] #### LAB [address] [place] [address] Moody Martinez M.D. [id number] IG PERCENT 0.30 % Normal [facility] Comment on above: Result Comment: The IG parameter is the percentage of metamyelocytes, myelocytes and promyelocytes. An immature granulocyte count (IG) of 1% or more suggests the possibility of infection, an IG count of 3% is very likely related to an infection. Performed By: #### L [id number] #### LAB [address] [place] [address] Moody Martinez M.D. [id number] Lymphocytes (Bld) [#/Vol] 2.94 10*3/uL Normal 0.90-4.0 0 [facility] Comment on above: Performed By: #### L [id number] #### LAB [address] [place] [address] Moody Martinez M.D. [id number] Lymphocytes/100 WBC (Bld) 28.7 % Normal [facility] Comment on above: Performed By: #### L [id number] #### LAB [address] [place] [address] Moody Martinez M.D. [id number] MCH (RBC) [Entitic mass] 30.3 pg Normal 26.0-34.0 [facility] Comment on above: Performed By: #### L [id number] #### LAB [address] [place] [address] Moody Martinez M.D. [id number] MCV (RBC) [Entitic vol] 94.5 fL Normal 80.0-100.0 [facility] Comment on above: Performed By: #### L [id number] #### LAB [address] [place] [address] Moody Martinez M.D. [id number] MEAN CORPUSCULAR HEMOGLOBIN CONC 32.1 g/dL Normal 31.0-37.0 [facility] Comment on above: Performed By: #### L [id number] #### LAB [address] [place] [address] Moody Martinez M.D. [id number] Monocytes (Bld) [#/Vol] 1.02 10*3/uL High 0.30-0.90 [facility] Comment on above: Performed By: #### L [id number] #### LAB [address] [place] [address] Moody Martinez M.D. [id number] Monocytes/100 WBC (Bld) 10.0 % Normal [facility] Comment on above: Performed By: #### L [id number] #### LAB [address] [place] [address] Moody Martinez M.D. [id number] NEUTROPHILS ABSOLUTE COUNT 6.12 K/mcL Normal 1.70-7.00 [facility] Comment on above: Performed By: #### L [id number] #### LAB [address] [place] [address] Moody Martinez M.D. [id number] Neutrophils/100 WBC (Bld) 59.6 % Normal [facility] Comment on above: Performed By: #### L [id number] #### LAB [address] [place] [address] Moody Martinez M.D. [id number] Platelet mean volume (Bld) [Entitic vol] 10.8 fL Normal 9.4-12.4 [facility] Comment on above: Performed By: #### L [id number] #### LAB [address] [place] [address] Moody Martinez M.D. [id number] Platelets (Bld) [#/Vol] 188 10*3/uL Normal 150-400 [facility] Comment on above: Performed By: #### L [id number] #### LAB [address] [place] [address] Moody Martinez M.D. [id number] RBC (Bld) [#/Vol] 3.07 10*6/uL Low 4.50-5.90 [facility] Comment on above: Performed By: #### L [id number] #### LAB [address] [place] [address] Moody Martinez M.D. [id number] WBC (Bld) [#/Vol] 10.25 10*3/uL Normal 4.50-11.00 [facility] Comment on above: Performed By: #### L [id number] #### [facility] LAB [address] [place] [address] Moody Martinez M.D. [id number] CONSULTon 10-28-2024 CONSULT Attestation signed by Pedro West MD at 10/29/2024 9:27 AM Patient was evaluated by Keeley Patton CNP. Patient ID: Patient Name: Enoc Armando Admit Date: 10/27/2024 MR #: [id number] : 1945 Current location: [facility] Physicians: Ryley Jeter MD (Family); Dr [...] low back pain presented to [facility] on 10/27/2024 for an elective left [...] Diagnosed in 1994. Patient is managed by [facility] endocrinology for his type 1 diabetes. He is currently taking Admelog insulin: 10 units at mealtime Lantus insulin: 12 units at bedtime Current monitoring regimen: home blood tests - 3 times daily Complications of diabetes include: Retinopathy: Negative Nephropathy: Positive Peripheral Neuropathy: Positive Autonomic Neuropathy: Negative Allergies: Allergies Allergen Reactions Wlbdkry-Vcl-Qmo Reductase Inhibitors Muscle cramps Home Medications: Outpatient [...] (more content not included)... Normal [facility] Glucose (Bld) [Mass/Vol]on 12-29-2023 Glucose [Mass/Vol] 321 mg/dL High 65 - 99 mg/dL [facility] Interpretation and review of laboratory results Abnormal [facility] Glucose [Mass/Vol] 288 mg/dL High 65 - 99 mg/dL [facility] Interpretation and review of laboratory results Abnormal [facility] Glucose [Mass/Vol] 130 mg/dL High 65 - 99 mg/dL [facility] Interpretation and review of laboratory results Abnormal [facility] Glucose [Mass/Vol] 55 mg/dL Critically low 65 - 99 mg/dL [facility] Interpretation and review of laboratory results Abnormal [facility] Critical result acted upon time of test. Test performed at bedside. [facility] Glucose [Mass/Vol] 85 mg/dL 65 - 99 mg/dL [facility] Interpretation and review of laboratory results Normal [facility] Glucose [Mass/Vol] 111 mg/dL High 65 - 99 mg/dL [facility] Interpretation and review of laboratory results Abnormal [facility] Glucose [Mass/Vol] 69 mg/dL 65 - 99 mg/dL [facility] Interpretation and review of laboratory results Normal [facility] Glucose [Mass/Vol] 76 mg/dL 65 - 99 mg/dL [facility] Interpretation and review of laboratory results Normal [facility] Glucose [Mass/Vol] 94 mg/dL 65 - 99 mg/dL [facility] Interpretation and review of laboratory results Normal [facility] Glucose [Mass/Vol] 115 mg/dL High 65 - 99 mg/dL [facility] Interpretation and review of laboratory results Abnormal [facility] Glucose [Mass/Vol] 168 mg/dL High 65 - 99 mg/dL [facility] Interpretation and review of laboratory results Abnormal [facility] Glucose [Mass/Vol] 215 mg/dL High 65 - 99 mg/dL [facility] Interpretation and review of laboratory results Abnormal [facility] Glucose [Mass/Vol] 336 mg/dL High 65 - 99 mg/dL [facility] Interpretation and review of laboratory results Abnormal [facility] Glucose [Mass/Vol] 443 mg/dL Critically high 65 - 99 mg/d L [facility] Interpretation and review of laboratory results Abnormal [facility] Critical result acted upon time of test. Test performed at bedside. [facility] HbA1c (Bld) [Mass fraction]o n 10-28-2024 Average glucose Estimated from glycated hemoglobin (Bld) [Mass/Vol] 237 mg/dL High 74 - 114 mg/dL [facility] Interpretation and review of laboratory results Abnormal [facility] Hemoglobin A1con 10-28-2024 HbA1c (Bld) [Mass fraction] 9.9 % High 4.2 - 5.6 % [facility] MAGNESIUM LEVELon 10-28-2024 Magnesium [Mass/Vol] 2.6 mg/dL High 1.6-2.4 [facility] Comment on above: Performed By: #### 4 [id number] #### LAB [address] [place], [place] [address] Moody Martinez M.D. [id number] Magnesium [Mass/Vol] 2.6 mg/dL High 1.6-2.4 [facility] Comment on above: Performed By: #### 4 4014 #### MH LAB [address] [place] [address] Moody Martinez M.D. [id number] Magnesium Levelon 10-28-2024 Magnesium [Mass/Vol] 2.6 mg/dL High 1.6 - 2 .4 mg/dL [facility] Magnesium [Mass/Vol] 2.6 mg/dL High 1.6 - 2 .4 mg/dL [facility] Magnesium [Mass/Vol] 2.6 mg/dL High 1.6 - 2 .4 mg/dL [facility] No Panel Informationon 10-28 Interpretation and review of laboratory results Abnormal [facility] Interpretation and review of laboratory results Abnormal [facility] Interpretation and review of laboratory results Abnormal [facility] PHOSPHORUSon 10-28-2024 Phosphate [Mass/Vol] 4.7 mg/dL High 2.3-3.7 [facility] Comment on above: Performed By: #### 4 [id number] ####MH LAB [address] [place], [place] [address] Moody Martinez M.D. [id number] POC GLUCOSE - [facility] 024 Glucose [Mass/Vol] 321 mg/dL High [address] [place] [address] Comment on above: Performed By: #### L [id number] #### MH LAB [address] [place], [place] [address] Moody Martinez M.D. [id number] Glucose [Mass/Vol] 288 mg/dL High [address] [place] [address] Comment on above: Performed By: #### 4 6932 ####MH LAB [address] [place] [id number] Moody Martinez M.D. [id number] Glucose [Mass/Vol] 130 mg/dL High [address] [place] [address] Comment on above: Performed By: #### 4 6932 ####MH LAB [address] [place] [id number] Moody Martinez M.D. [id number] Glucose [Mass/Vol] 55 mg/dL Off scale low [address] [place] [address] Comment on above: Order Comment: Criti christian result acted upon time of test. Test performed at bedside. Performed By: #### 4 [id number] #### LAB [address] [place] [address] Moody Martinez M.D. [id number] Glucose [Mass/Vol] 85 mg/dL Normal [address] [place] [address] Comment on above: Performed By: #### 4 6932 #### LAB [address] [place] [address] Moody Martinez M.D. [id number] Glucose [Mass/Vol] 111 mg/dL High [address] [place] [address] Comment on above: Performed By: #### L [id number] #### LAB [address] [place] [address] Moody Martinez M.D. [id number] Glucose [Mass/Vol] 69 mg/dL Normal [address] [place] [address] Comment on above: Performed By: #### 4 6932 #### LAB [address] [place] [address] Modoy Martinez M.D. [id number] Glucose [Mass/Vol] 76 mg/dL Normal [address] [place] [address] Comment on above: Performed By: #### 4 6932 ####MH LAB [address] [place] [address] Moody Martinez M.D. [id number] Glucose [Mass/Vol] 94 mg/dL Normal [address] [place] [address] Comment on above: Performed By: #### 4 6932 #### LAB [address] [place], [place] [address] Moody Martinez M.D. [id number] Glucose [Mass/Vol] 115 mg/dL High [address] [place] [address] Comment on above: Performed By: #### 4 6932 #### LAB [address] [place] [address] Moody Martinez M.D. [id number] Glucose [Mass/Vol] 168 mg/dL High [address] [place] [address] Comment on above: Performed By: #### L [id number] #### LAB [address] [place] [address] Moody Martinez M.D. [id number] Glucose [Mass/Vol] 215 mg/dL High [address] [place] [address] Comment on above: Performed By: #### 4 6932 #### LAB [address] [place] [address] Moody Martinez M.D. [id number] Glucose [Mass/Vol] 336 mg/dL High [address] [place] [address] Comment on above: Performed By: #### 4 6932 #### LAB [address] [place] [address] Moody Martinez M.D. [id number] Phosphoruson 10-28-2024 Phosphate [Mass/Vol] 4.7 mg/dL High 2.3 - 3 .7 mg/dL [facility] Phosphate [Mass/Vol] 4.4 mg/dL High 2.3 - 3 .7 mg/dL [facility] ABOR VERIFICATIONon ABO and Rh group Nom (Bld) Blood group A Rh(D) positive Normal [facility] ABO and Rh group Nom (Bld) ABO/Rh Verification [facility] Comment on above: Result Comment: Twila ent's ABO/Rh is verified. [facility] Verificationon 024 ABO and Rh group Nom (Bld) Blood group A Rh(D) positive [facility] ABO and Rh group Nom (Bld) ABO/Rh Verification [facility] Comment on above: Patient's ABO/Rh is verified. [facility] AMYLASEon 10-27-2024 Amylase [Catalytic activity/Vol] 26.8 U/L Normal 13.0-53.0 [facility] Comment on above: Performed By: #### 4 6932 #### LAB [address] [place], [place] [address] Moody Martinez M.D. [id number] APTTon 10-27-2024 aPTT Coag (Bld) [Time] 74 s High [facility] aPTT Coag (Bld) [Time] 74 s High 23-34 [facility] Comment on above: Order Comment: Thera peutic range for APTT's is 68 - 104 seconds Performed By: #### 4 5113 #### LAB [address] [place], [place] [address] Moody Martinez M.D. [id number] Amylaseon 10-27-2024 Amylase.pancreatic [Catalytic activity/Vol] 26.8 U/L 13.0 - 53.0 U/L [facility] BASIC METABOLIC PANELon 10-02 Anion gap [Moles/Vol] 16 mmol/L Normal 10-20 [facility] Comment on above: Order Comment: [facility] has implemented the eGFR calculation approach that does not have a coefficient for race that conforms to the NKF-ASN Task Force Recommendations. Performed By: #### 4 6932 #### LAB [address] [place], [place] [address] Moody Martinez M.D. [id number] Calcium [Mass/Vol] 8.3 mg/dL Low 8.4-10.2 [facility] Comment on above: Order Comment: [facility] has implemented the eGFR calculation approach that does not have a coefficient for race that conforms to the NKF-ASN Task Force Recommendations. Performed By: #### 4 6932 #### LAB [address] [place], [place] [address] Moody Martinez M.D. [id number] Chloride [Moles/Vol] 103 mmol/L Normal 98-108 [facility] Comment on above: Order Comment: [facility] has implemented the eGFR calculation approach that does not have a coefficient for race that conforms to the NKF-ASN Task Force Recommendations. Performed By: #### 4 6932 #### LAB [address] [place] [address] Moody Martinez M.D. [id number] Creatinine [Mass/Vol] 2.60 mg/dL High 0.80-1.30 [facility] Comment on above: Order Comment: [facility] has implemented the eGFR calculation approach that does not have a coefficient for race that conforms to the NKF-ASN Task Force Recommendations. Performed By: #### 4 6932 #### LAB [address] [place] [address] Moody Martinez M.D. [id number] EGFR 24 mL/min/1.73 m2 Low >=60 [facility] Comment on above: Order Comment: [facility] has implemented the eGFR calculation approach that does not have a coefficient for race that conforms to the NKF-ASN Task Force Recommendations. Result Comment: Albin mated GFR was calculated using the 2020 CKD-EPI creatinine equation. Performed By: #### 4 6932 #### LAB [address] [place] [address] Moody Martinez M.D. [id number] Glucose [Mass/Vol] 495 mg/dL Off scale high 65-99 [facility] Comment on above: Order Comment: [facility] has implemented the eGFR calculation approach that does not have a coefficient for race that conforms to the NKF-ASN Task Force Recommendations. Performed By: #### 4 6932 #### LAB [address] [place] [address] Moody Matrinez M.D. [id number] HCO3 (Bld) [Moles/Vol] 18 mmol/L Low 21-32 [facility] Comment on above: Order Comment: [facility] has implemented the eGFR calculation approach that does not have a coefficient for race that conforms to the NKF-ASN Task Force Recommendations. Performed By: #### 4 6932 #### LAB [address] [place] [address] Moody Martinez M.D. [id number] Potassium [Moles/Vol] 5.0 mmol/L Normal 3.5-5.1 [facility] Comment on above: Order Comment: [facility] has implemented the eGFR calculation approach that does not have a coefficient for race that conforms to the NKF-ASN Task Force Recommendations. Performed By: #### 4 6932 #### LAB [address] [place], [place] [address] Moody Martinez M.D. [id number] Sodium [Moles/Vol] 132 mmol/L Low 135-145 [facility] Comment on above: Order Comment: [facility] has implemented the eGFR calculation approach that does not have a coefficient for race that conforms to the NKF-ASN Task Force Recommendations. Performed By: #### 4 6932 #### LAB [address] [place], [place] [address] Moody Martinez M.D. [id number] Urea nitrogen [Mass/Vol] 93 mg/dL High 8- [facility] Comment on above: Order Comment: [facility] has implemented the eGFR calculation approach that does not have a coefficient for race that conforms to the NKF-ASN Task Force Recommendations. Performed By: #### 4 6904 #### LAB [address] [place], [place] [address] Moody Martinez M.D. [id number] Urea nitrogen/Creatinine [Mass ratio] 35.8 mg/mg High 10.0-20.0 [facility] Comment on above: Order Comment: [facility] has implemented the eGFR calculation approach that does not have a coefficient for race that conforms to the NKF-ASN Task Force Recommendations. Performed By: #### 4 6939 #### MH LAB [address] [place], [place] [address] Moody Martinez M.D. [id number] BETA-HYDROXYBUTYRATEon 10-27 BETA-HYDROXYBUTYRATE 0.4 mmol/L High 0.0-0.3 [facility] Comment on above: Performed By: #### 4 5126 #### LAB [address] [place] [address] Moody Martinez M.D. [id number] BETA-HYDROXYBUTYRATE 2.3 mmol/L High 0.0-0.3 [facility] Comment on above: Performed By: #### 4 5139 #### LAB [address] [place] [address] Moody Martinez M.D. [id number] BETA-HYDROXYBUTYRATE 0.7 mmol/L High 0.0-0.3 [facility] Comment on above: Performed By: #### 4 6932 #### LAB [address] [place] [address] Moody Martinez M.D. [id number] BILIRUBIN, DIRECTon 10-27-20 BILIRUBIN, DIRECT < Normal 0.0-0.4 [facility] Comment on above: Performed By: #### 4 5145 #### LAB [address] [place] [address] Moody Martinez M.D. [id number] Beta hydroxybutyrate [Moles/ Vol]on 10-27-2024 Interpretation and review of laboratory results Abnormal [facility] Interpretation and review of laboratory results Abnormal [facility] Beta-Hydroxybutyrateon 10-27 Beta hydroxybutyrate [Moles/Vol] 2.3 mmol/L High 0.0 - 0.3 mmol/L [facility] Beta hydroxybutyrate [Moles/Vol] 0.7 mmol/L High 0.0 - 0.3 mmol/L [facility] Bilirubin.direct [Mass/Vol]o n 10-27-2024 Bilirubin.conjugated [Mass/Vol] mg/dL 0.0 - 0.4 mg/dL [facility] Interpretation and review of laboratory results Normal [facility] Blood type and Indirect anti body screen panel (Bld)on 10-27-2024 ABO and Rh group Nom (Bld) Blood group A Rh(D) positive [facility] Blood group antibody screen Ql Negative [facility] Specimen Expires 10/30/2024 23:59 EST [facility] CBC Auto Differentialon 10-02 Basophils (Bld) [#/Vol] 0.04 10*3/uL [facility] Basophils/100 WBC (Bld) 0.5 % [facility] Eosinophils (Bld) [#/Vol] 0 10*3/uL [facility] Eosinophils/100 WBC (Bld) 0 % [facility] Erythrocyte distribution width (RBC) [Entitic vol] 13.7 % 11.6 - 14.8 % [facility] alth Hematocrit (Bld) [Volume fraction] 34.8 % Low 41.0 - 53.0 % [facility] Hemoglobin (Bld) [Mass/Vol] 11.2 g/dL Low 13.5 - 17.5 g/dL [facility] Immature granulocytes (Bld) [#/Vol] 0.04 10*3/uL [facility] Immature granulocytes/100 WBC (Bld) 0.5 % [facility] Comment on above: The IG parameter is the percentage of metamyelocytes, myelocytes and promyelocytes. An immature granulocyte count (IG) of 1% or more suggests the possibility of infection, an IG count of 3% is very likely related to an infection. Interpretation and review of laboratory results Abnormal [facility] Lymphocytes (Bld) [#/Vol] 1.2 10*3/uL [facility] Lymphocytes/100 WBC (Bld) 13.8 % [facility] MCH (RBC) [Entitic mass] 30 pg 26. 0 - 34.0 pg [facility] MCHC (RBC) [Mass/Vol] 32.2 g/dL 31.0 - 37.0 g/dL [facility] MCV (RBC) [Entitic vol] 93.3 fL 80.0 - 100.0 fL [facility] Monocytes (Bld) [#/Vol] 0.11 10*3/uL Low [facility] Monocytes/100 WBC (Bld) 1.3 % [facility] Neutrophils (Bld) [#/Vol] 7.32 10*3/uL High [facility] Neutrophils/100 WBC (Bld) 83.9 % [facility] Nucleated RBC (Bld) [#/Vol] 0 10*3/uL [facility] Nucleated RBC/100 WBC (Bld) [Ratio] 0 % [facility] Platelet mean volume (Bld) [Entitic vol] 11.2 fL 9.4 - 12.4 fL [facility] Platelets (Bld) [#/Vol] 234 10*3/uL [facility] RBC (Bld) [#/Vol] 3.73 10*6/uL Low [facility] WBC (Bld) [#/Vol] 8.71 10*3/uL [facility] CBC WITH AUTO DIFFERENTIALon 10-27-2024 AUTO NRBC 0.0 % Normal [facility] Comment on above: Performed By: #### L [id number] #### LAB [address] [place] [address] Moody Martinez M.D. [id number] AUTO NRBC ABS COUNT 0.00 K/mcL Normal 0.00-0.00 [facility] Comment on above: Performed By: #### L [id number] #### LAB [address] [place] [address] Moody Martinez M.D. [id number] BASOPHILS ABSOLUTE COUNT 0.04 K/mcL Normal 0.00-0.30 [facility] Comment on above: Performed By: #### L [id number] #### LAB [address] [place] [address] Moody Martinez M.D. [id number] Basophils/100 WBC (Bld) 0.5 % Normal [facility] Comment on above: Performed By: #### L [id number] #### LAB [address] [place] [address] Moody Martinez M.D. [id number] Eosinophils (Bld) [#/Vol] 0.00 10*3/uL Normal 0.00-0.5 0 [facility] Comment on above: Performed By: #### L [id number] #### LAB [address] [place] [address] Moody Martinez M.D. [id number] Eosinophils/100 WBC (Bld) 0.0 % Normal [facility] Comment on above: Performed By: #### L [id number] #### LAB [address] [place] [address] Moody Martinez M.D. [id number] Erythrocyte distribution width (RBC) [Ratio] 13.7 % Normal 11.6-14.8 [facility] Comment on above: Performed By: #### L [id number] #### LAB [address] [place] [address] Moody Martinez M.D. [id number] Hematocrit (Bld) [Volume fraction] 34.8 % Low 41.0-53.0 [facility] Comment on above: Performed By: #### L [id number] #### LAB [address] [place] [address] Moody Martinez M.D. [id number] Hemoglobin (Bld) [Mass/Vol] 11.2 g/dL Low 13.5-17.5 [facility] Comment on above: Performed By: #### L [id number] #### LAB [address] [place] [address] Moody Martinez M.D. [id number] IG ABSOLUTE 0.04 K/mcL Normal 0.00-0.30 [facility] Comment on above: Performed By: #### L [id number] #### LAB [address] [place] [address] Moody Martinez M.D. [id number] IG PERCENT 0.50 % [facility] Comment on above: Result Comment: The IG parameter is the percentage of metamyelocytes, myelocytes and promyelocytes. An immature granulocyte count (IG) of 1% or more suggests the possibility of infection, an IG count of 3% is very likely related to an infection. Performed By: #### L [id number] #### LAB [address] [place] [address] Moody Martinez M.D. [id number] Lymphocytes (Bld) [#/Vol] 1.20 10*3/uL Normal 0.90-4.0 0 [facility] Comment on above: Performed By: #### L [id number] ####[facility] LAB [address] [place] [address] Moody Martinez M.D. [id number] Lymphocytes/100 WBC (Bld) 13.8 % [facility] Comment on above: Performed By: #### L [id number] #### LAB [address] [place] [address] Moody Martinez M.D. [id number] MCH (RBC) [Entitic mass] 30.0 pg Normal 26.0-34.0 [facility] Comment on above: Performed By: #### L [id number] #### LAB [address] [place] [address] Moody Martinez M.D. [id number] MCV (RBC) [Entitic vol] 93.3 fL Normal 80.0-100.0 [facility] Comment on above: Performed By: #### L [id number] #### LAB [address] [place] [address] Moody Martinez M.D. [id number] MEAN CORPUSCULAR HEMOGLOBIN CONC 32.2 g/dL Normal 31.0-37.0 [facility] Comment on above: Performed By: #### L [id number] #### LAB [address] [place] [address] Moody Martinez M.D. [id number] Monocytes (Bld) [#/Vol] 0.11 10*3/uL Low 0.30-0.90 [facility] Comment on above: Performed By: #### L [id number] #### LAB [address] [place] [address] Moody Martinez M.D. [id number] Monocytes/100 WBC (Bld) 1.3 % Normal [facility] Comment on above: Performed By: #### L [id number] #### LAB [address] [place] [address] Moody Martinez M.D. [id number] NEUTROPHILS ABSOLUTE COUNT 7.32 K/mcL High 1.70-7.00 [facility] Comment on above: Performed By: #### L [id number] #### LAB [address] [place] [address] Moody Martinez M.D. [id number] Neutrophils/100 WBC (Bld) 83.9 % Normal [facility] Comment on above: Performed By: #### L [id number] #### LAB [address] [place] [address] Moody Martinez M.D. [id number] Platelet mean volume (Bld) [Entitic vol] 11.2 fL Normal 9.4-12.4 [facility] Comment on above: Performed By: #### L [id number] #### LAB [address] [place] [address] Moody Martinez M.D. [id number] Platelets (Bld) [#/Vol] 234 10*3/uL Normal 150-400 [facility] Comment on above: Performed By: #### L [id number] ####MH LAB [address] [place] [address] Moody Martinez M.D. [id number] RBC (Bld) [#/Vol] 3.73 10*6/uL Low 4.50-5.90 [facility] Comment on above: Performed By: #### L [id number] #### LAB [address] [place] [address] Moody Martinez M.D. [id number] WBC (Bld) [#/Vol] 8.71 10*3/uL Normal 4.50-11.00 [facility] Comment on above: Performed By: #### L [id number] #### LAB [address] [place] [address] Moody Martinez M.D. [id number] CITRATED TEG (CARDIAC) WITH HEPARINASE PANEL [place] [facility] 10-27-2024 (CFF-FLEV) CITRATED FUNCTIONAL FIBRINOGEN -EST. FUNCTIONAL FIBRINOGEN LEVEL 381.4 mg/dL Normal 278.0-581.0 [facility] Comment on above: Performed By: #### L [id number] ####MH LAB [address] [place] [address] Moody Martinez M.D. [id number] (CFF-[place]) CITRATED FUNCTIONAL FIBRINOGEN - [place] 20.9 mm Normal 15.0-32.0 [facility] Comment on above: Performed By: #### L [id number] ####MH LAB [address] [place] [address] Moody Martinez M.D. [id number] (CK-ANGLE) CITRATED KAOLIN-ALPHA ANGLE 73.2 deg Normal 63.0-78.0 [facility] Comment on above: Performed By: #### L [id number] #### LAB [address] [place] [address] Moody Martinez M.D. [id number] (CK-K) CITRATED KAOLIN-SPEED OF CLOT FORMATION 1.3 min Normal 0.8-2.1 [facility] Comment on above: Performed By: #### L [id number] #### LAB [address] [place] [address] Moody Martinez M.D. [id number] (CK-MA) CITRATED KAOLIN-MAXIMUM CLOT STRENGTH 50.9 mm Low 52.0-69.0 [facility] Comment on above: Performed By: #### L [id number] #### LAB [address] [place] [address] Moody Martinez M.D. [id number] (CK-R) CITRATED KAOLIN - REACTION TIME 16.4 min High 4.6-9.1 [facility] Comment on above: Performed By: #### L [id number] #### LAB [address] [place] [address] Moody Martinez M.D. [id number] (CKH-R) CITRATED KAOLIN WITH HEPARINASE-REACTION TIME 7.6 min Normal 4.3-8.3 [facility] Comment on above: Performed By: #### L [id number] ####MH LAB [address] [place] [address] Moody Martinez M.D. [id number] (QUALITY REVIEWER-[place]) CITRATED RAPID TEG - [place] 62.3 mm Normal 52.0-70.0 [facility] Comment on above: Performed By: #### L [id number] #### LAB [address] [place] [address] Moody Martinez M.D. [id number] [facility] Albumin [Mass/Vol] 3.4 g/dL Normal 3.2-5.2 [facility] Comment on above: Order Comment: [facility] has implemented the eGFR calculation approach that does not have a coefficient for race that conforms to the NKF-ASN Task Force Recommendations. Performed By: #### 4 6126 #### LAB [address] [place] [address] Moody Martinez M.D. [id number] ALP [Catalytic activity/Vol] 86 U/L Normal 40-150 [facility] Comment on above: Order Comment: [facility] has implemented the eGFR calculation approach that does not have a coefficient for race that conforms to the NKF-ASN Task Force Recommendations. Performed By: #### 4 6126 #### LAB [address] [place] [address] Moody Martinez M.D. [id number] ALT [Catalytic activity/Vol] 13 U/L Normal 0-50 U/L [facility] Comment on above: Order Comment: [facility] has implemented the eGFR calculation approach that does not have a coefficient for race that conforms to the NKF-ASN Task Force Recommendations. Performed By: #### 4 6126 #### LAB [address] [place] [address] Moody Martinez M.D. [id number] Anion gap [Moles/Vol] 20 mmol/L Normal 10-20 [facility] Comment on above: Order Comment: [facility] has implemented the eGFR calculation approach that does not have a coefficient for race that conforms to the NKF-ASN Task Force Recommendations. Performed By: #### 4 6126 #### LAB [address] [place] [address] Moody Martinez M.D. [id number] AST [Catalytic activity/Vol] 12 U/L Normal 0-50 U/L [facility] Comment on above: Order Comment: [facility] has implemented the eGFR calculation approach that does not have a coefficient for race that conforms to the NKF-ASN Task Force Recommendations. Performed By: #### 4 6126 #### LAB [address] [place] [address] Moody Martinez M.D. [id number] Bilirubin [Mass/Vol] 0.3 mg/dL Normal 0.0-1.3 [facility] Comment on above: Order Comment: [facility] has implemented the eGFR calculation approach that does not have a coefficient for race that conforms to the NKF-ASN Task Force Recommendations. Performed By: #### 4 [id number] #### LAB [address] [address] Moody Martinez M.D. [id number] Calcium [Mass/Vol] 8.4 mg/dL Normal 8.4-10.2 [facility] Comment on above: Order Comment: [facility] has implemented the eGFR calculation approach that does not have a coefficient for race that conforms to the NKF-ASN Task Force Recommendations. Performed By: #### 4 6126 #### LAB [address] [address] Moody Martinez M.D. [id number] Chloride [Moles/Vol] 99 mmol/L Normal 98-108 [facility] Comment on above: Order Comment: [facility] has implemented the eGFR calculation approach that does not have a coefficient for race that conforms to the NKF-ASN Task Force Recommendations. Performed By: #### 4 6126 #### LAB [address] [address] Moody Martinez M.D. [id number] Creatinine [Mass/Vol] 2.55 mg/dL High 0.80-1.30 [facility] Comment on above: Order Comment: [facility] has implemented the eGFR calculation approach that does not have a coefficient for race that conforms to the NKF-ASN Task Force Recommendations. Performed By: #### 4 6126 #### LAB [address] [address] Moody Martinez M.D. [id number] EGFR 25 mL/min/1.73 m2 Low >=60 [facility] Comment on above: Order Comment: [facility] has implemented the eGFR calculation approach that does not have a coefficient for race that conforms to the NKF-ASN Task Force Recommendations. Result Comment: Albin mated GFR was calculated using the 2020 CKD-EPI creatinine equation. Performed By: #### 4 6169 #### LAB [address] [address] Moody Martinez M.D. [id number] Glucose [Mass/Vol] 564 mg/dL Off scale high 65-99 [facility] Comment on above: Order Comment: [facility] has implemented the eGFR calculation approach that does not have a coefficient for race that conforms to the NKF-ASN Task Force Recommendations. Performed By: #### 4 6126 #### LAB [address] [address] Moody Martinez M.D. [id number] HCO3 (Bld) [Moles/Vol] 15 mmol/L Low 21-32 [facility] Comment on above: Order Comment: [facility] has implemented the eGFR calculation approach that does not have a coefficient for race that conforms to the NKF-ASN Task Force Recommendations. Performed By: #### 4 6126 #### LAB [address] [address] Moody Martinez M.D. [id number] Potassium [Moles/Vol] 5.9 mmol/L High 3.5-5.1 [facility] Comment on above: Order Comment: [facility] has implemented the eGFR calculation approach that does not have a coefficient for race that conforms to the NKF-ASN Task Force Recommendations. Performed By: #### 4 6126 #### LAB [address] [address] Moody Martinez M.D. [id number] Protein [Mass/Vol] 5.8 g/dL Low 6.0-8.0 [facility] Comment on above: Order Comment: [facility] has implemented the eGFR calculation approach that does not have a coefficient for race that conforms to the NKF-ASN Task Force Recommendations. Performed By: #### 4 6126 #### LAB [address] [address] Moody Martinez M.D. [id number] Sodium [Moles/Vol] 128 mmol/L Low 135-145 [facility] Comment on above: Order Comment: [facility] has implemented the eGFR calculation approach that does not have a coefficient for race that conforms to the NKF-ASN Task Force Recommendations. Performed By: #### 4 6126 #### LAB [address] [address] Moody Martinez M.D. [id number] Urea nitrogen [Mass/Vol] 93 mg/dL High 8-25 [facility] Comment on above: Order Comment: [facility] has implemented the eGFR calculation approach that does not have a coefficient for race that conforms to the NKF-ASN Task Force Recommendations. Performed By: #### 4 6126 #### LAB [address] [address] Moody Martinez M.D. [id number] Urea nitrogen/Creatinine [Mass ratio] 36.5 mg/mg High 10.0-20.0 [facility] Comment on above: Order Comment: [facility] has implemented the eGFR calculation approach that does not have a coefficient for race that conforms to the NKF-ASN Task Force Recommendations. Performed By: #### 4 6126 #### LAB [address] [address] Moody Martinez M.D. [id number] Albumin [Mass/Vol] 3.5 g/dL Normal 3.2-5.2 [facility] Comment on above: Order Comment: [facility] has implemented the eGFR calculation approach that does not have a coefficient for race that conforms to the NKF-ASN Task Force Recommendations. Performed By: #### 4 6126 #### LAB [address] [address] Moody Martinez M.D. [id number] ALP [Catalytic activity/Vol] 92 U/L Normal 40-150 [facility] Comment on above: Order Comment: [facility] has implemented the eGFR calculation approach that does not have a coefficient for race that conforms to the NKF-ASN Task Force Recommendations. Performed By: #### 4 6126 #### LAB [address] [address] Moody Martinez M.D. [id number] ALT [Catalytic activity/Vol] 21 U/L Normal 0-50 U/L [facility] Comment on above: Order Comment: [facility] has implemented the eGFR calculation approach that does not have a coefficient for race that conforms to the NKF-ASN Task Force Recommendations. Performed By: #### 4 6126 #### LAB [address] [address] Moody Martinez M.D. [id number] Anion gap [Moles/Vol] 20 mmol/L Normal 10-20 [facility] Comment on above: Order Comment: [facility] has implemented the eGFR calculation approach that does not have a coefficient for race that conforms to the NKF-ASN Task Force Recommendations. Performed By: #### 4 6126 #### LAB [address] [address] Moody Martinez M.D. [id number] AST [Catalytic activity/Vol] 14 U/L Normal 0-50 U/L [facility] Comment on above: Order Comment: [facility] has implemented the eGFR calculation approach that does not have a coefficient for race that conforms to the NKF-ASN Task Force Recommendations. Performed By: #### 4 6126 #### LAB [address] [address] Moody Martinez M.D. [id number] Bilirubin [Mass/Vol] 0.3 mg/dL Normal 0.0-1.3 [facility] Comment on above: Order Comment: [facility] has implemented the eGFR calculation approach that does not have a coefficient for race that conforms to the NKF-ASN Task Force Recommendations. Performed By: #### 4 6126 #### LAB [address] [address] Moody Martinez M.D. [id number] Calcium [Mass/Vol] 8.7 mg/dL Normal 8.4-10.2 [facility] Comment on above: Order Comment: [facility] has implemented the eGFR calculation approach that does not have a coefficient for race that conforms to the NKF-ASN Task Force Recommendations. Performed By: #### 4 6126 #### LAB [address] [place], [place] [address] Moody Martinez M.D. [id number] Chloride [Moles/Vol] 99 mmol/L Normal 98-108 [facility] Comment on above: Order Comment: [facility] has implemented the eGFR calculation approach that does not have a coefficient for race that conforms to the NKF-ASN Task Force Recommendations. Performed By: #### 4 6126 #### LAB [address] [place], [place] [address] Moody Martinez M.D. [id number] Creatinine [Mass/Vol] 2.60 mg/dL High 0.80-1.30 [facility] Comment on above: Order Comment: [facility] has implemented the eGFR calculation approach that does not have a coefficient for race that conforms to the NKF-ASN Task Force Recommendations. Performed By: #### 4 6126 #### LAB [address] [place], [place] [address] Moody Martinez M.D. [id number] EGFR 24 mL/min/1.73 m2 Low >=60 [facility] Comment on above: Order Comment: [facility] has implemented the eGFR calculation approach that does not have a coefficient for race that conforms to the NKF-ASN Task Force Recommendations. Result Comment: Albin mated GFR was calculated using the 2020 CKD-EPI creatinine equation. Performed By: #### 4 6126 #### LAB [address] [place], [place] [address] Moody Martinez M.D. [id number] Glucose [Mass/Vol] 467 mg/dL Off scale high 65-99 [facility] Comment on above: Order Comment: [facility] has implemented the eGFR calculation approach that does not have a coefficient for race that conforms to the NKF-ASN Task Force Recommendations. Performed By: #### 4 6126 #### LAB [address] [address] Moody Martinez M.D. [id number] HCO3 (Bld) [Moles/Vol] 17 mmol/L Low 21-32 [facility] Comment on above: Order Comment: [facility] has implemented the eGFR calculation approach that does not have a coefficient for race that conforms to the NKF-ASN Task Force Recommendations. Performed By: #### 4 6126 #### LAB [address] [address] Moody Martinez M.D. [id number] Potassium [Moles/Vol] 6.3 mmol/L Off scale high 3.5-5.1 [facility] Comment on above: Order Comment: [facility] has implemented the eGFR calculation approach that does not have a coefficient for race that conforms to the NKF-ASN Task Force Recommendations. Performed By: #### 4 6126 #### LAB [address] [address] Moody Martinez M.D. [id number] Protein [Mass/Vol] 5.6 g/dL Low 6.0-8.0 [facility] Comment on above: Order Comment: [facility] has implemented the eGFR calculation approach that does not have a coefficient for race that conforms to the NKF-ASN Task Force Recommendations. Performed By: #### 4 6126 #### LAB [address] [address] Moody Martinez M.D. [id number] Sodium [Moles/Vol] 130 mmol/L Low 135-145 [facility] Comment on above: Order Comment: [facility] has implemented the eGFR calculation approach that does not have a coefficient for race that conforms to the NKF-ASN Task Force Recommendations. Performed By: #### 4 6126 #### LAB [address] [address] Moody Martinez M.D. [id number] Urea nitrogen [Mass/Vol] 92 mg/dL High 8-25 [facility] Comment on above: Order Comment: [facility] has implemented the eGFR calculation approach that does not have a coefficient for race that conforms to the NKF-ASN Task Force Recommendations. Performed By: #### 4 6126 #### LAB [address] [place], [place] [address] Moody Martinez M.D. [id number] Urea nitrogen/Creatinine [Mass ratio] 35.4 mg/mg High 10.0-20.0 [facility] Comment on above: Order Comment: [facility] has implemented the eGFR calculation approach that does not have a coefficient for race that conforms to the NKF-ASN Task Force Recommendations. Performed By: #### 4 6126 #### LAB [address] [place], [place] [address] Moody Martinez M.D. [id number] CORONARY ANGIOGRAPHYon 10-27 CORONARY ANGIOGRAPHY This is [...] across the aortic valve. Normal [facility] CT CHEST WITHOUT CONTRASTon 10-27-2024 CT [...] the subcutaneous tissues of the chest wall. 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 Heavy atherosclerotic vascular disease including heavy plaquing of the ascending thoracic aorta but predominately involving the posterior wall. 2. Bilateral strand-like and dependent posterior lower lobe opacities consistent with atelectasis. Otherwise, no acute pulmonary disease or suspicious nodules. 3. Small hiatal hernia. 4. Mild edema in the subcutaneous tissues of the chest wall. [employer] Workstation ID: [id number] [facility] EXAMINATION: CT CHEST WITHOUT CONTRAST [...] STRUCTURES: No aggressive bone lesions. Intact sternum. [facility] Abimael Kahlil Darren, DO - [...] the chest wall. [employer] Workstation ID: [id number] [facility] Radiology Study observation (narrative) [facility] Cardiac Catheterizationon Impression: Multivessel complex calcified [...] no significant gradient across the aortic valve. [employer] CV [facility] Citrated TEG (Cardiac) with HeparinaseOrdered By: Burton Zendejas on 10-27-2024 (CFF-FLEV) Cit. Func.Fib.Estimated Func.Fibrinogen Level 381.4 mg/dL 278.0 - 581.0 mg/dL [facility] Clot angle TEG (Bld) [Angle] 73.2 deg 63.0 - 78.0 deg [facility] Clot formation TEG (Bld) [Time] 1.3 min 0.8 - 2.1 min [facility] Clotting time after addition of heparinase TEG (Bld) 7.6 min 4.3 - 8.3 min [facility] Clotting time.intrinsic coagulation system activated Rotational TEG (Bld) 16.4 min High 4.6 - 9.1 min [facility] Interpretation and review of laboratory results Abnormal [facility] Maximum clot firmness TEG (Bld) [Length] 50.9 mm Low 52.0 - 69.0 mm [facility] Maximum clot firmness TEG (Bld) [Length] 20.9 mm 15.0 - 32.0 mm [facility] Maximum clot firmness.extrinsic coagulation system activated Rotational TEG (Bld) [Length] 62.3 mm 52.0 - 70.0 mm [facility] Comprehensive metabolic 2000 panelOrdered By: Ya Izaguirre on 10-27-2024 Albumin [Mass/Vol] 3.4 g/dL 3.2 - 5.2 g/dL [facility] ALP [Catalytic activity/Vol] 86 U/L 40 - 150 U/L [facility] ALT [Catalytic activity/Vol] 13 U/L 0-50 U/L [facility] Anion gap [Moles/Vol] 20 mmol/L 10 - 2 0 mmol/L [facility] AST [Catalytic activity/Vol] 12 U/L 0-50 U/L [facility] Bilirubin [Mass/Vol] 0.3 mg/dL 0.0 - 1 .3 mg/dL [facility] Calcium [Mass/Vol] 8.4 mg/dL 8.4 - 10. 2 mg/dL [facility] Chloride [Moles/Vol] 99 mmol/L 98 - 10 8 mmol/L [facility] Creatinine [Mass/Vol] 2.55 mg/dL High 0.80 - 1.30 mg/dL [facility] GFR/1.73 sq M.predicted CKD-EPI (S/P/Bld) [Vol rate/Area] 25 Low - PINF [facility] Comment on above: Estimated GFR was ca lculated using the 2020 CKD-EPI creatinine equation. Glucose [Mass/Vol] 564 mg/dL Critically high 65 - 99 mg/d L [facility] HCO3 [Moles/Vol] 15 mmol/L Low 21 - 32 mmol/L [facility] Potassium [Moles/Vol] 5.9 mmol/L High 3.5 - 5.1 mmol/L [facility] Protein [Mass/Vol] 5.8 g/dL Low 6.0 - 8.0 g/dL [facility] Sodium [Moles/Vol] 128 mmol/L Low 135 - 145 mmol/L [facility] Urea nitrogen [Mass/Vol] 93 mg/dL High 8 - 25 mg/d L [facility] Urea nitrogen/Creatinine [Mass ratio] 36.5 mg/mg High 10.0 - 20.0 [facility] has implemented the eGFR calculation approach that does not have a coefficient for race that conforms to the NKF-ASN Task Force Recommendations. [facility] Comprehensive metabolic 2000 panelOrdered By: Rosalia March on 10-27-2024 Albumin [Mass/Vol] 3.5 g/dL 3.2 - 5.2 g/dL [facility] ALP [Catalytic activity/Vol] 92 U/L 40 - 150 U/L [facility] ALT [Catalytic activity/Vol] 21 U/L 0-50 U/L [facility] Anion gap [Moles/Vol] 20 mmol/L 10 - 2 0 mmol/L [facility] AST [Catalytic activity/Vol] 14 U/L 0-50 U/L [facility] Bilirubin [Mass/Vol] 0.3 mg/dL 0.0 - 1 .3 mg/dL [facility] Calcium [Mass/Vol] 8.7 mg/dL 8.4 - 10. 2 mg/dL [facility] Chloride [Moles/Vol] 99 mmol/L 98 - 10 8 mmol/L [facility] Creatinine [Mass/Vol] 2.6 mg/dL High 0.80 - 1.30 mg/dL [facility] GFR/1.73 sq M.predicted CKD-EPI (S/P/Bld) [Vol rate/Area] 24 Low - PINF [facility] Comment on above: Estimated GFR was ca lculated using the 2020 CKD-EPI creatinine equation. Glucose [Mass/Vol] 467 mg/dL Critically high 65 - 99 mg/d L [facility] HCO3 [Moles/Vol] 17 mmol/L Low 21 - 32 mmol/L [facility] Interpretation and review of laboratory results Abnormal [facility] Potassium [Moles/Vol] 6.3 mmol/L Critically high 3.5 - 5.1 mmol/L [facility] Protein [Mass/Vol] 5.6 g/dL Low 6.0 - 8.0 g/dL [facility] Sodium [Moles/Vol] 130 mmol/L Low 135 - 145 mmol/L [facility] Urea nitrogen [Mass/Vol] 92 mg/dL High 8 - 25 mg/d L [facility] Urea nitrogen/Creatinine [Mass ratio] 35.4 mg/mg High 10.0 - 20.0 [facility] has implemented the eGFR calculation approach that does not have a coefficient for race that conforms to the NKF-ASN Task Force Recommendations. [facility] ECHOCARDIOGRAM COMPLETEon ECHOCARDIOGRAM COMPLETE Patient Info Name: ENOC ARMANDO Age: 78 years : 1945 Gender: Male Ht: 170 cm Wt: 66 kg BSA: 1.77 m2 HR: 63 bpm BP: 148 / 55 mmHg Heart Rhythm: Sinus Arrhythmia Technical Quality: Fair Exam Date: 10/27/2024 1:22 PM Patient Status: Outpatient Remote Pilot Operator: Jyoti Perez RDCS Exam Type: ECHOCARDIOGRAM COMPLETE Study Info Indications - Abnormal electrocardiogram [ECG] [EKG] Referring Physician: MARIE Arriaga; [id number] BMI: 22.71 kg/m2 Summary 1. Normal LV [...] Factors Hypertension: Yes Dyslipidemia: Yes Myocardial Infarction (MA): No Congestive Heart Failure (CHF): Hx CHF [...] mmHg MV VTI 56 cm MV Decel [place] 850 cm/s2 MV PHT 90 ms MV [...] (more content not included)... Normal [facility] Echo completeOrdered By: Fauzia Garay on 10-27-2024 Aortic valve area 3.08897 cm [facility] Work Phone: [phone] AV mean gradient 4 mmHg [facility] Work Phone: [phone] AV peak gradient 7.1824 mmHg [facility] Work Phone: [phone] EF 70.2889 % [facility] Work Phone: [phone] [facility] Work Phone: [phone] Echo completeon 10-27-2024 Patient Info Name: ENOC ARMANDO Age: 78 years : 1945 Gender: Male Ht: 170 cm Wt: 66 kg BSA: 1.77 m2 HR: 63 bpm BP: 148 / 55 mmHg Heart Rhythm: Sinus Arrhythmia Technical Quality: Fair Exam Date: 10/27/2024 1:22 PM Patient Status: Outpatient Remote Pilot Operator: Jyoti Perez RDCS Exam Type: ECHOCARDIOGRAM COMPLETE Study Info Indications - Abnormal electrocardiogram [ECG] [EKG] Referring Physician: MARIE Arriaga; [id number] BMI: 22.71 kg/m2 Summary 1. Normal LV [...] Factors Hypertension: Yes Dyslipidemia: Yes Myocardial Infarction (MA): No Congestive Heart Failure (CHF): Hx CHF [...] Date: 10/27/2024 1:22 PM Patient Status: Outpatient Remote Pilot Operator: Jyoti Perez RDCS Exam Type: ECHOCARDIOGRAM COMPLETE Study Info Indications - Abnormal electrocardiogram [ECG] [EKG] Referring Physician: [id number], POLLARD; [id number] BMI: 22.71 kg/m2 Summary 1. Normal LV [...] Factors Hypertension: Yes Dyslipidemia: Yes Myocardial Infarction (MA): No Congestive Heart Failure (CHF): Hx CHF [...] mmHg MV VTI 56 cm MV Decel [place] 850 cm/s2 MV PHT 90 ms MV [...] 6.3 cm/ (more content not included)... [facility] Glucose (Bld) [Mass/Vol]on 12-28-2023 Glucose [Mass/Vol] mg/dL Critically high 65 - 99 mg/d L [facility] Interpretation and review of laboratory results Abnormal [facility] Critical result acted upon time of test. Test performed at bedside. [facility] Glucose [Mass/Vol] mg/dL Critically high 65 - 99 mg/d L [facility] Interpretation and review of laboratory results Abnormal [facility] Critical result acted upon time of test. Test performed at bedside. [facility] Glucose [Mass/Vol] 369 mg/dL High 65 - 99 mg/dL [facility] Interpretation and review of laboratory results Abnormal [facility] Glucose [Mass/Vol] 381 mg/dL High 65 - 99 mg/dL [facility] Interpretation and review of laboratory results Abnormal [facility] Glucose [Mass/Vol] 385 mg/dL High 65 - 99 mg/dL [facility] Interpretation and review of laboratory results Abnormal [facility] Glucose [Mass/Vol] 498 mg/dL Critically high 65 - 99 mg/d L [facility] Interpretation and review of laboratory results Abnormal [facility] Critical result acted upon time of test. Test performed at bedside. [facility] Glucose [Mass/Vol] 279 mg/dL High 65 - 99 mg/dL [facility] Interpretation and review of laboratory results Abnormal [facility] HEMOGLOBIN A1Con 10-27-2024 Glucose [Mass/Vol] 237 mg/dL High 74-114 [facility] Comment on above: Performed By: #### 4 8202 ####[facility] [address] [address] Moody Martinez M.D. [id number] HbA1c (Bld) [Mass fraction] 9.9 % High 4.2-5.6 [facility] Comment on above: Performed By: #### 4 8202 ####[facility] [address] [address] Moody Martinez M.D. [id number] Glucose [Mass/Vol] 232 mg/dL High 74-114 [facility] Comment on above: Performed By: #### 4 8202 ####[facility] [address] [address] Moody Martinez M.D. [id number] HbA1c (Bld) [Mass fraction] 9.7 % High 4.2-5.6 [facility] Comment on above: Performed By: #### 4 8202 #### LAB [address] [address] Moody Martinez M.D. [id number] HbA1c (Bld) [Mass fraction]o n 10-27-2024 Average glucose Estimated from glycated hemoglobin (Bld) [Mass/Vol] 232 mg/dL High 74 - 114 mg/dL [facility] Interpretation and review of laboratory results Abnormal [facility] Hemoglobin A1con 10-27-2024 HbA1c (Bld) [Mass fraction] 9.7 % High 4.2 - 5.6 % [facility] INR Coag (PPP) [Relative concha e]on 10-27-2024 Interpretation and review of laboratory results Normal [facility] PT Coag (PPP) [Time] 14.3 s [facility] During the induction phase of oral anticoagulation, the INR may not reflect the anticoagulation status of the patient. Therapeutic ranges for INR's are: Most clinical situations: INR 2.0-3.0 Mechanical Prosthetic Valve: INR 2.5-3.5 Critical: INR >5.0 [facility] LACTIC ACID, PLASMAon 2023 LACTIC ACID, PLASMA 1.6 mmol/L Normal 0.6-2.0 [facility] Comment on above: Performed By: #### 4 6932 #### [facility] [address] [address] Moody Martinez M.D. [id number] LIPASEon 10-27-2024 Lipase [Catalytic activity/Vol] 56 U/L Normal 15-65 [facility] Comment on above: Performed By: #### 4 6086 #### LAB [address] [address] Moody Martinez M.D. [id number] Lactate [Moles/Vol]on 2023 Interpretation and review of laboratory results Normal [facility] Lactic Acid, Plasmaon 2023 Lactate [Moles/Vol] 1.6 mmol/L 0.6 - 2. 0 mmol/L [facility] Lipaseon 10-27-2024 Lipase [Catalytic activity/Vol] 56 U/L 15 - 65 U/L [facility] MAGNESIUM LEVELon 10-27-2024 Magnesium [Mass/Vol] 2.6 mg/dL High 1.6-2.4 [facility] Comment on above: Performed By: #### 4 6109 ####[facility] [address] [address] Moody Martinez M.D. [id number] Magnesium [Mass/Vol] 2.5 mg/dL High 1.6-2.4 [facility] Comment on above: Performed By: #### 4 6109 #### LAB [address] [address] Moody Martinez M.D. [id number] Magnesium Levelon 10-27-2024 Magnesium [Mass/Vol] 2.5 mg/dL High 1.6 - 2 .4 mg/dL [facility] No Panel InformationOrdered By: Ya Izaguirre on 10-27-2024 Interpretation and review of laboratory results Abnormal [facility] No Panel Informationon 10-27 Interpretation and review of laboratory results Normal [facility] PHOSPHORUSon 10-27-2024 Phosphate [Mass/Vol] 4.4 mg/dL High 2.3-3.7 [facility] Comment on above: Performed By: #### 4 6299 #### LAB [address] [address] Moody Martinez M.D. [id number] Phosphate [Mass/Vol] 5.2 mg/dL High 2.3-3.7 [facility] Comment on above: Performed By: #### 4 4014 #### [facility] [address] [address] Moody Martinez M.D. [id number] POC ARTERIAL BLOOD GAS PANEL -AYUSH Lyons 10-27-2024 [id number] 19.6 mm Hg Normal [facility] Comment on above: Performed By: #### 4 8716 ####[facility] [address] [address] Moody Martinez M.D. [id number] BASE EXCESS, ARTERIAL -7.5 Low -2.0-2.0 [facility] Comment on above: Performed By: #### 4 8716 ####[facility] [address] [address] Moody Martinez M.D. [id number] FIO2 21 Normal [facility] Comment on above: Performed By: #### 4 8716 #### LAB [address] [address] Moody Martinez M.D. [id number] HCO3 (Bld) [Moles/Vol] 17.5 mmol/L Low 22.0-26.0 [facility] Comment on above: Performed By: #### 4 8716 ####[facility] [address] [address] Moody Martinez M.D. [id number] Hematocrit (Bld) [Volume fraction] 30.0 % Low 41.0-53.0 [facility] Comment on above: Performed By: #### 4 8716 ####[facility] [address] [address] Moody Martinez M.D. [id number] Hemoglobin (Bld) [Mass/Vol] 9.8 g/dL Low 13.5-17.5 [facility] Comment on above: Performed By: #### 4 8716 ####[facility] [address] [address] Moody Martinez M.D. [id number] Oxygen saturation in Blood 97.3 % Normal 92.0-99.0 [facility] Comment on above: Performed By: #### 4 8716 #### LAB [address] [address] Moody Martinez M.D. [id number] PCO2 ARTERIAL 32.9 mm Hg Low 35.0-45.0 [facility] Comment on above: Performed By: #### 4 8716 #### LAB [address] [address] Moody Martinez M.D. [id number] PH ARTERIAL 7.33 Low 7.35-7.45 [facility] Comment on above: Performed By: #### 4 8716 #### LAB [address] [address] Moody Martinez M.D. [id number] PO2 ARTERIAL 85 mm Hg Normal 75-85 [facility] Comment on above: Performed By: #### 4 8716 #### LAB [address] [address] Moody Martinez M.D. [id number] SPECIMEN SOURCE RADIANCE Radial, left Normal [facility] Comment on above: Performed By: #### 4 8716 #### LAB [address] [address] Moody Martinez M.D. [id number] POC Arterial Blood Gas Panel -[facility] 10-27-2024 Alveolar-arterial oxygen Partial pressure difference 19.6 mm Hg [facility] Base excess Calc (Bld) [Moles/Vol] -7.5000 mmol/L Low -2.0 - 2.0 [facility] CO2 (Bld) [Partial pressure] 32.9 mm[Hg] Low [facility] Hematocrit (BldA) [Volume fraction] 30 % Low 41.0 - 53.0 % [facility] Inhaled oxygen concentration 21 % [facility] Interpretation and review of laboratory results Abnormal [facility] Oxygen (Bld) [Partial pressure] 85 mm[Hg] [facility] pH (Bld) 7.33 [pH] Low 7.35 - 7.45 [facility] Specimen source Nom (Unsp spec) Radial, left [facility] POC GLUCOSE - [facility] 024 Glucose [Mass/Vol] 443 mg/dL Off scale high 65-99 [facility] Comment on above: Order Comment: Criti christian result acted upon time of test. Test performed at bedside. Performed By: #### 4 6919 ####[facility] [address] [address] Moody Martinez M.D. [id number] POC GLUCOSE > Off scale [address] Comment on above: Order Comment: Criti christian result acted upon time of test. Test performed at bedside. Performed By: #### 4 6993 ####[facility] [address] [address] Moody Martinez M.D. [id number] POC GLUCOSE > Off scale [address] Comment on above: Order Comment: Criti christian result acted upon time of test. Test performed at bedside. Performed By: #### 4 6998 #### LAB [address] [address] Moody Martinez M.D. [id number] POC GLUCOSE > Off scale [address] Comment on above: Order Comment: Criti christian result acted upon time of test. Test performed at bedside. Performed By: #### 4 6963 ####[facility] [address] [address] Moody Martinez M.D. [id number] Glucose [Mass/Vol] 369 mg/dL [address] Comment on above: Performed By: #### 4 6991 #### LAB [address] [address] Moody Martinez M.D. [id number] Glucose [Mass/Vol] 381 mg/dL [address] Comment on above: Performed By: #### 4 1775 ####[facility] [address] [address] Moody Martinez M.D. [id number] Glucose [Mass/Vol] 385 mg/dL [address] Comment on above: Performed By: #### 4 7610 #### LAB [address] [address] Moody Martinez M.D. [id number] Glucose [Mass/Vol] 498 mg/dL Off scale high 65-99 [facility] Comment on above: Order Comment: Criti christian result acted upon time of test. Test performed at bedside. Performed By: #### 4 6932 #### LAB [address] [address] Moody Martinez M.D. [id number] Glucose [Mass/Vol] 279 mg/dL High 65-99 [facility] Comment on above: Performed By: #### L [id number] #### [facility] [address] [address] Moody Martinez M.D. [id number] POTASSIUM LEVELon 10-27-2024 Potassium [Moles/Vol] 3.4 mmol/L Low 3.5-5.1 [facility] Comment on above: Performed By: #### 4 6351 ####[facility] [address] [address] Moody Martinez M.D. [id number] PREALBUMINon 10-27-2024 Prealbumin [Mass/Vol] 15.9 mg/dL Low 20.0-40.0 [facility] Comment on above: Performed By: #### 4 4014 #### LAB [address] [address] Moody Martinez M.D. [id number] PT/INRon 10-27-2024 INR Coag (PPP) [Relative time] 1.1 {INR} 0.8 - 1.1 [facility] INR Coag (PPP) [Relative time] 1.1 {INR} Normal 0.8-1.1 [facility] Comment on above: Order Comment: Janet good the induction phase of oral anticoagulation, the INR may not reflect the anticoagulation status of the patient. Therapeutic ranges for INR's are:Most clinical situations: INR 2.0-3.0Mechanical Prosthetic Valve: INR 2.5-3.5Critical: INR >5.0 Performed By: #### 4 6976 #### LAB [address] [address] Moody Martinez M.D. [id number] PT Coag (PPP) [Time] 14.3 s Normal 11.8-14.3 [facility] Comment on above: Order Comment: Janet good the induction phase of oral anticoagulation, the INR may not reflect the anticoagulation status of the patient. Therapeutic ranges for INR's are:Most clinical situations: INR 2.0-3.0Mechanical Prosthetic Valve: INR 2.5-3.5Critical: INR >5.0 Performed By: #### 4 6932 #### LAB [address] [place], [place] [address] Moody Martinez M.D. [id number] Phosphoruson 10-27-2024 Phosphate [Mass/Vol] 5.2 mg/dL High 2.3 - 3 .7 mg/dL [facility] Potassium Levelon 10-27-2024 Potassium [Moles/Vol] 3.4 mmol/L Low 3.5 - 5.1 mmol/L [facility] Potassium [Moles/Vol]on 10-02 Interpretation and review of laboratory results Abnormal [facility] Prealbuminon 10-27-2024 Prealbumin [Mass/Vol] 15.9 mg/dL Low 20.0 - 40.0 mg/dL [facility] Prealbumin [Mass/Vol]on 10-02 Interpretation and review of laboratory results Abnormal [facility] Segmental Doppler Lower Extr emity Arterialon 10-27-2024 Patient Info Name: ENOC ARMANDO Age: 78 years : 1945 Gender: Male Exam Date: 10/27/2024 9:50 AM Patient Status: Outpatient Student Dean: Ya Jacob Referring Physician: ZOILA POLLARD; Indications I73.9 - Peripheral vascular disease, unspecified Procedure Description 89807 Limited bilateral noninvasive physiologic studies of upper [...] Date: 10/27/2024 9:50 AM Patient Status: Outpatient Student Dean: Ya Jacob Referring Physician: ZOILA POLLARD; Indications I73.9 - Peripheral vascular disease, unspecified Procedure Description 37398 Limited bilateral noninvasive physiologic studies of upper [...] Nguyen DO on 10/27/2024 01:14 PM [facility] T4, Christina 10-27-2024 Free T4 [Mass/Vol] 1.3 ng/dL Normal 0.7-1.7 [facility] Comment on above: Performed By: #### 4 6567 #### LAB [address] [address] Moody Martinez M.D. [id number] T4, Freeon 10-27-2024 Free T4 [Mass/Vol] 1.3 ng/dL 0.7 - 1.7 ng/dL [facility] TEG PLATELET MAPPING ([facility] [place])on 10-27-2024 (AA-%AGGREGATION) AA PERCENT AGGREGATION 12.1 % Low 89.0-100.0 [facility] Comment on above: Performed By: #### L [id number] ####[facility] [address] [address] Moody Martinez M.D. [id number] (AA-%INHIBITION) AA PERCENT INHIBITION 87.9 % High 0.0-11.0 [facility] Comment on above: Performed By: #### L [id number] ####[facility] [address] [address] Moody Martinez M.D. [id number] (AA-MA) AA MAXIMUM AMPLITUDE 14.7 mm Low 51.0-71.0 [facility] Comment on above: Performed By: #### L [id number] ####[facility] [address] [address] Moody Martinez M.D. [id number] (ACTF-MA) ACTIVATOR F MAXIMUM AMPLITUDE 7.8 mm Normal 2.0-19.0 [facility] Comment on above: Performed By: #### L [id number] ####[facility] [address] [address] Moody Martinez M.D. [id number] (ADP-%AGGREGATION) ADP PERCENT AGGREGATION 61.2 % Low 83.0-100.0 [facility] Comment on above: Performed By: #### L [id number] ####[facility] [address] [address] Moody Martinez M.D. [id number] (ADP-%INHIBITION) ADP PERCENT INHIBITION 38.8 % High 0.0-17.0 [facility] Comment on above: Performed By: #### L [id number] #### LAB [address] [address] Moody Martinez M.D. [id number] (ADP-MA) ADP MAXIMUM AMPLITUDE 42.7 mm Low 45.0-69.0 [facility] Comment on above: Performed By: #### L [id number] ####[facility] [address] [address] Moody Martinez M.D. [id number] (HKH-MA) KAOLIN WITH HEPARINASE MAXIMUM AMPLITUDE 64.8 mm Normal 53.0-68.0 [facility] Comment on above: Performed By: #### L [id number] #### LAB [address] [address] Moody Martinez M.D. [id number] TEG Platelet Mapping (Cardia c)on 10-27-2024 (AA-%Aggregation) AA Percent Aggregation 12.1 % Low 89.0 - 100.0 % [facility] (AA-%Inhibition) AA Percent Inhibition 87.9 % High 0.0 - 11.0 % [facility] (ADP-% Aggregation) ADP Percent Aggregation 61.2 % Low 83.0 - 100.0 % [facility] (ADP-%Inhibition) ADP PERCENT INHIBITION 38.8 % High 0.0 - 17.0 % [facility] Interpretation and review of laboratory results Abnormal [facility] Maximum amplitude AA induced Resonance TEG (Bld) [Length] 14.7 mm Low 51.0 - 71.0 mm [facility] Maximum amplitude activator F induced Resonance TEG (Bld) [Length] 7.8 mm 2.0 - 19.0 mm [facility] Maximum amplitude ADP induced Resonance TEG (Bld) [Length] 42.7 mm Low 45.0 - 69.0 mm [facility] Maximum amplitude kaolin induced after addition of heparinase Resonance TEG (Bld) [Length] 64.8 mm 53.0 - 68.0 mm [facility] TSHon 10-27-2024 TSH Qn 0.48 m[IU]/L Normal 0.27-4.20 [facility] Comment on above: Performed By: #### 4 6932 #### LAB [address] [address] Moody Martinez M.D. 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 [id number] URINE AEROBIC CULTUREon 10-02 URINE AEROBIC CULTURE URINE CULTURE No Growth (<1,000 CFU/mL) Normal [facility] Comment on above: Order Comment: If PO SITIVE, send for sensitivities per cardiac surgeon Performed By: #### 4 4053 ####[facility] [address] [place] [address] Jose Cisse M.D. [id number] US DOPPLER CAROTIDon 024 US DOPPLER CAROTID Patient Info Name: ENOC ARMANDO Age: 78 years : 1945 Gender: Male Exam Date: 10/27/2024 10:32 AM Patient Status: Outpatient Student Dean: Lori Fagan RDMS (), RVS Referring Physician: MARIE Arriaga; Indications Z01.810 - Encounter for preprocedural cardiovascular examination I65.23 - Occlusion and stenosis of bilateral carotid arteries Procedure Description 55884 Duplex examination using B-mode, color and spectral [...] (more content not included)... Normal [facility] Comment on above: Order Comment: Dr. Sudha Parker to read US DOPPLER SEGMENTAL ARTERIA L LEGS BILATERALon 10-27-2024 US DOPPLER SEGMENTAL ARTERIAL LEGS BILATERAL Patient Info Name: ENOC ARMANDO Age: 78 years : 1945 Gender: Male Exam Date: 10/27/2024 9:50 AM Patient Status: Outpatient Student Dean: Ya Jacob Referring Physician: ZOILA POLLARD; Indications I73.9 - Peripheral vascular disease, unspecified Procedure Description 43709 Limited bilateral noninvasive physiologic studies of upper [...] JO-ANN Nguyen DO on 10/27/2024 01:14 PM [facility] RADIAL ARTERY MAPPING KARIN [facility] 10-27-2024 US RADIAL ARTERY MAPPING BILATERAL Patient Info Name: ENOC ARMANDO Age: 78 years : 1945 Gender: Male Exam Date: 10/27/2024 11:23 AM Patient Status: Outpatient Student Dean: Lori Fagan RDMS (AB), RVS Referring Physician: MARIE Arriaga; Indications - possible radial artery harvest Z01.810 - Encounter for preprocedural cardiovascular examination Procedure Description 63066 Duplex scan of upper extremity arteries or [...] MD on 10/27/2024 11:50 AM [facility] Radial Artery Mapping Karin bone 10-27-2024 Patient Info Name: ENOC ARMANDO Age: 78 years : 1945 Gender: Male Exam Date: 10/27/2024 11:23 AM Patient Status: Outpatient Student Dean: Lori Fagan RDMS (AB), RVS Referring Physician: MARIE Arriaga; Indications - possible radial artery harvest Z01.810 - Encounter for preprocedural cardiovascular examination Procedure Description 53753 Duplex scan of upper extremity arteries or [...] Kristy Parker MD on 10/27/2024 11:50 AM [employer] [facility] Kristy Parker MD - 10/27/2024 Patient Info Name: ENOC ARMANDO Age: 78 years : 1945 Gender: Male Exam Date: 10/27/2024 11:23 AM Patient Status: Outpatient Student Dean: Lori Fagan, MARYJANE (AB), RVS Referring Physician: MARIE Arriaga; Indications - possible radial artery harvest Z01.810 - Encounter for preprocedural cardiovascular examination Procedure Description 04323 Duplex scan of upper extremity arteries or [...] Kristy Parker MD on 10/27/2024 11:50 AM [facility] SAPHENOUS VEIN MAPon - SAPHENOUS VEIN MAP Patient Info Name: ENOC ARMANDO Age: 78 years : 1945 Gender: Male Exam Date: 10/27/2024 11:13 AM Patient Status: Outpatient Student Dean: Lori Fagan RDMS (AB), RVS Referring Physician: MARIE Arriaga; Indications - GSV harvest Z01.810 - Encounter for preprocedural cardiovascular examination Procedure Description 81403 Duplex examination using B-mode, color and spectral [...] on 10/27/2024 11:57 AM Normal [facility] Ultrasound Saphenous vein ma ppingon 10-27-2024 Patient Info Name: ENOC ARMANDO Age: 78 years : 1945 Gender: Male Exam Date: 10/27/2024 11:13 AM Patient Status: Outpatient Student Dean: Lori Fagan RDMS (AB), RVS Referring Physician: MARIE Arriaga; Indications - GSV harvest Z01.810 - Encounter for preprocedural cardiovascular examination Procedure Description 03484 Duplex examination using B-mode, color and spectral [...] Date: 10/27/2024 11:13 AM Patient Status: Outpatient Student Dean: Lori Fagan RDMS (AB), RVS Referring Physician: MARIE Arriaga; Indications - GSV harvest Z01.810 - Encounter for preprocedural cardiovascular examination Procedure Description 80902 Duplex examination using B-mode, color and spectral [...] Parker MD on 10/27/2024 11:57 AM [facility] Ultrasound doppler carotidon 10-27-2024 Patient Info Name: ENOC ARMANDO Age: 78 years : 1945 Gender: Male Exam Date: 10/27/2024 10:32 AM Patient Status: Outpatient Student Dean: Lori Fagan RDMS (AB), RVS Referring Physician: MARIE Arriaga; Indications Z01.810 - Encounter for preprocedural cardiovascular examination I65.23 - Occlusion and stenosis of bilateral carotid arteries Procedure Description 25411 Duplex examination using B-mode, color and spectral [...] Date: 10/27/2024 10:32 AM Patient Status: Outpatient Student Dean: Lori Fagan RDMS (AB), RVS Referring Physician: MARIE Arriaga; Indications Z01.810 - Encounter for preprocedural cardiovascular examination I65.23 - Occlusion and stenosis of bilateral carotid arteries Procedure Description 18427 Duplex examination using B-mode, color and spectral [...] has a (more content not included)... [facility] Urinalysison 10-27-2024 Bacteria Auto Ql (U) Rare Abnormal None Se en /hpf [facility] Bilirubin Ql (U) Negative Negative [facility] Clarity Refractometry automated (U) Clear Clear [facility] Color (U) Colorless Colorless, Yellow [facility] Epithelial cells.squamous Auto (Urine sed) [#/Area] [facility] alth Glucose Auto test strip (U) [Mass/Vol] 150 mg/dL Abnormal Negative, >=1000 [facility] Hemoglobin Auto test strip Ql (U) Negative Negative [facility] Hyaline casts Auto (Urine sed) [#/Area] 0-2 [facility] Interpretation and review of laboratory results Abnormal [facility] Ketones (U) [Mass/Vol] Negative Negat frank mg/dL [facility] Leukocyte esterase Auto test strip Ql (U) Negative Negative [facility] Mucus Auto (Urine sed) [#/Area] Rare None Seen, Rare /lpf [facility] Nitrite Auto test strip Ql (U) Negative Negative [facility] pH (U) 5 [pH] 5.0 - 7.0 [facility] Protein (U) [Mass/Vol] Negative Negat frank mg/dL [facility] RBC Auto (Urine sed) [#/Area] 1 [facility] Specific gravity (U) [Rel density] 1.017 1.005 - 1.025 [facility] Urobilinogen (U) [Mass/Vol] mg/dL NINF - 2.0 mg/dL [facility] WBC Auto (Urine sed) [#/Area] 1 [facility] Microscopic examination is performed on all urinalysis samples and only positive findings are reported. The test for blood on the chemical analytic portion of urinalysis may also be positive due to hemoglobinuria and myoglobinuria and if red blood cells are present they are quantified by microscopic examination. [facility] XR CHEST AP/PA AND LATon XR CHEST [...] 2024 3:01:09 PM EST Normal [facility] Comment on above: Order Comment: Injur y/Trauma or Illness?:Illness/OtherHow long have you had these symptoms (acute/chronic)?:AcuteReason for exam?:pre opHistory of cancer?:.Surgeries, chemotherapy, or radiation?:cardiac catheterizationType of Exam?:InitialAdditional signs and symptoms?:. XR Chest PA and Lateral and AP lateral-decubituson 10-27-2024 Mild bilateral lower lung atelectasis. JAR/trn Workstation ID: [id number] [facility] RIS EXAMINATION: XR CHEST AP/PA AND LAT [...] atelectasis. No pneumothorax or sizable pleural effusion. [facility] Kahlil Varghese, DO - 10/27/2024 [...] lung atelectasis. JAR/trn Workstation ID: [id number] [facility] Radiology Study observation (narrative) [facility] th XR Chest PA and Lateral and AP lateral-decubitusOrdered By: Kahlil Varghese on 10-27-2024 [facility] Work Phone: aPTT Coag (Bld) [Time]on Interpretation and review of laboratory results Abnormal [facility] Therapeutic range for APTT's is 68 - 104 seconds [facility] BASIC METABOLIC PANELon 10-01 Calcium [Mass/Vol] 8.9 mg/dL Normal 8.6-10.3 [facility] Comment on above: Order Comment: FASTI NG:UNKNOWN FASTING: UNKNOWN Performed By: #### 6 399, 01936 #### [facility] [address], [address] [place] [address] [employer]: Jadon Velez MD Chloride [Moles/Vol] 106 mmol/L Normal 98-110 [facility] Comment on above: Order Comment: FASTI NG:UNKNOWN FASTING: UNKNOWN Performed By: #### 6 399, 78660 #### [facility] [address], [address] [place] [address] [employer]: Jadon Velez MD CO2 [Moles/Vol] 22 mmol/L Normal 20-32 [facility] Comment on above: Order Comment: FASTI NG:UNKNOWN FASTING: UNKNOWN Performed By: #### 6 399, 03919 #### [facility] [address], [address] [place] [address] [employer]: Jadon Velez MD Creatinine [Mass/Vol] 2.36 mg/dL High 0.70-1.22 [facility] Comment on above: Order Comment: FASTI NG:UNKNOWN FASTING: UNKNOWN Performed By: #### 6 399, 21869 #### [facility] [place] [address] [employer]: Jadon Velez MD GFR/1.73 sq M.predicted among non-blacks MDRD (S/P/Bld) [Vol rate/Area] 27 mL/min/{1.73_m2} Low > OR = 60 [facility] Comment on above: Order Comment: FASTI NG:UNKNOWN FASTING: UNKNOWN Performed By: #### 6 399, 97790 #### [facility] [place] [address] [employer]: Jadon Velez MD Glucose [Mass/Vol] 316 mg/dL High 65-99 [facility] Comment on above: Order Comment: FASTI NG:UNKNOWN FASTING: UNKNOWN Result Comment: Fasting reference interval For someone without known diabetes, a glucose value >125 mg/dL indicates that they may have diabetes and this should be confirmed with a follow-up test. Performed By: #### 6 399, 25570 #### [facility] [place] [address] [employer]: Jadon Velez MD Potassium [Moles/Vol] 5.6 mmol/L High 3.5-5.3 [facility] [employer] Comment on above: Order Comment: FASTI NG:UNKNOWN FASTING: UNKNOWN Performed By: #### 6 399, 48487 #### [facility] [address], [address] [place] [address] [employer]: Jadon Velez MD Sodium [Moles/Vol] 137 mmol/L Normal 135-146 [facility] Comment on above: Order Comment: FASTI NG:UNKNOWN FASTING: UNKNOWN Performed By: #### 6 399, 79615 #### [facility] [address], [address] [place] [address] [employer]: Jadon Velez MD Urea nitrogen [Mass/Vol] 66 mg/dL High 7-25 [facility] Comment on above: Order Comment: FASTI NG:UNKNOWN FASTING: UNKNOWN Performed By: #### 6 399, 74538 #### [facility] [address], [address] [place] [address] [employer]: Jadon Velez MD Urea nitrogen/Creatinine [Mass ratio] 28 mg/mg High 6-22 [facility] Comment on above: Order Comment: FASTI NG:UNKNOWN FASTING: UNKNOWN Performed By: #### 6 399, 23964 #### [facility] of [address], [address] [place] [address] [employer]: Jadon Velez MD CBC (INCLUDES DIFF/PLT)on Basophils (Bld) [#/Vol] 0.213 10*3/uL High 0-200 [facility] Comment on above: Performed By: #### 6 399, 87250 #### [facility] of [address], [address] [place] [address] [employer]: Jadon Velez MD Basophils/100 WBC (Bld) 2.6 % Normal [facility] Comment on above: Performed By: #### 6 399, 86677 #### [facility] of [address], [address] [place] [address] [employer]: Jadon Velez MD Eosinophils (Bld) [#/Vol] 0.5 10*3/uL Normal 15-500 [facility] Comment on above: Performed By: #### 6 399, 38070 #### [facility] of [address], [address] [place] [address] [employer]: Jadon Velez MD Eosinophils/100 WBC (Bld) 6.1 % Normal [facility] Comment on above: Performed By: #### 6 399, 39953 #### [facility] of [place] [address] [employer]: Jadon Velez MD Erythrocyte distribution width (RBC) [Ratio] 12.9 % Normal 11.0-15.0 [facility] Comment on above: Performed By: #### 6 399, 58564 #### [facility] of [place] [address] [employer]: Jadon Velez MD Hematocrit (Bld) [Volume fraction] 33.8 % Low 38.5-50.0 [facility] Comment on above: Performed By: #### 6 399, 14917 #### [facility] of [address], [address] [place] [address] [employer]: Jadon Velez MD Hemoglobin (Bld) [Mass/Vol] 10.9 g/dL Low 13.2-17.1 [facility] Comment on above: Performed By: #### 6 399, 58477 #### [facility] of [address], [address] [place] [address] [employer]: Jadon Velez MD Lymphocytes (Bld) [#/Vol] 2.28 10*3/uL Normal 850-3900 [facility] Comment on above: Performed By: #### 6 399, 63842 #### [facility] of [address], [address] [place] [address] [employer]: Jadon Velez MD Lymphocytes/100 WBC (Bld) 27.8 % Normal [facility] Comment on above: Performed By: #### 6 399, 66330 #### [facility] [place] [address] [employer]: Jadon Velez MD MCH (RBC) [Entitic mass] 30.9 pg Normal 27.0-33.0 [facility] Comment on above: Performed By: #### 6 399, 80901 #### [facility] of [place] [address] [employer]: Jadon Velez MD MCHC (RBC) [Mass/Vol] 32.2 [...] clinical condition. Performed By: #### 6 399, 56387 #### [facility] of [place] [address] [employer]: Jadon Velez MD MCV (RBC) [Entitic vol] 95.8 fL Normal 80.0-100.0 [facility] Comment on above: Performed By: #### 6 399, 75650 #### [facility] of [address], [address] [place] [address] [employer]: Jadon Velez MD Monocytes (Bld) [#/Vol] 0.631 10*3/uL Normal 200-950 [facility] Comment on above: Performed By: #### 6 399, 95725 #### [facility] [place] [address] [employer]: Jadon Velez MD Monocytes/100 WBC (Bld) 7.7 % Normal [facility] Comment on above: Performed By: #### 6 399, 97535 #### [facility] [place] [address] [employer]: Jadon Velez MD Neutrophils (Bld) [#/Vol] 4.576 10*3/uL Normal 1500-78 00 [facility] Comment on above: Performed By: #### 6 399, 54567 #### [facility] [place] [address] [employer]: Jadon Velez MD Neutrophils/100 WBC (Bld) 55.8 % Normal [facility] Comment on above: Performed By: #### 6 399, 48077 #### [facility] [place] [address] [employer]: Jadon Velez MD Platelet mean volume (Bld) [Entitic vol] 11.5 fL Normal 7.5-12.5 [facility] Comment on above: Performed By: #### 6 399, 73760 #### [facility] [place] [address] [employer]: Jadon Velez MD Platelets (Bld) [#/Vol] 289 10*3/uL Normal 140-400 [facility] Comment on above: Performed By: #### 6 399, 32412 #### [facility] [place] [address] [employer]: Jadon Velez MD RBC (Bld) [#/Vol] 3.53 10*6/uL Low 4.20-5.80 [facility] Comment on above: Performed By: #### 6 399, 75935 #### [facility] [address], [address] [place] [address] [employer]: Jadon Velez MD WBC (Bld) [#/Vol] 8.2 10*3/uL Normal 3.8-10.8 [facility] Comment on above: Performed By: #### 6 399, 46899 #### [facility] [address], [address] [place] [address] [employer]: Jadon Velez MD Lipid Profileon 09-21-2024 Cholesterol [Mass/Vol] 148 mg/dL Normal 200 [facility] Comment on above: Result Comment: <200 mg/dL Desirable 200-240 mg/dL Borderline >240 mg/dL High Risk Performed By: #### L 500.4100 ####[facility] [address] [place], [address] Cholesterol in HDL [Mass/Vol] 49 mg/dL Normal [facility] Comment on above: Result Comment: The drugs N-Acetylcysteine and Metamizole may falselydepress this assay. Reference Range HDL <40 mg/dL Low HDL Cholesterol HDL >or= 60 mg/dL High HDL Cholesterol Performed By: #### L 500.4100 ####[facility] [address] [place], [address] Cholesterol in LDL [Mass/Vol] 87 mg/dL Normal 0-130 [facility] Comment on above: Performed By: #### L 500.4100 ####[facility] [address] [place], [address] Cholesterol in VLDL [Mass/Vol] 12 mg/dL Normal 5-40 [facility] Comment on above: Performed By: #### L 500.4100 ####[facility] [address] [place], [address] Triglyceride [Mass/Vol] 58 mg/dL Normal [facility] Comment on above: Result Comment: The drugs N-Acetylcysteine and Metamizole may falselydepress this assay.Serum Triglycerides Reference Interval Normal <150 mg/dL Borderline high 150 - 199 mg/dL High 200 - 499 mg/dL Very High > or = 500 mg/dL Performed By: #### L 500.4100 ####[facility] [address] [place], [address] Basic Metabolic Profile (BMP )on 09-15-2024 BUN Normal 7-18 [facility] Comment on above: Result Comment: Canc elled via OM: Order cancelled - Patient discharged Performed By: #### L 500.2500, L100.0100 ####[facility] [address] [place], [address] BUN/CRE Normal 10-20 [facility] Comment on above: Result Comment: Canc elled via OM: Order cancelled - Patient discharged Performed By: #### L 500.2500, L100.0100 ####[facility] [address] [place], [address] CA,Total Normal 8.5-10.1 [facility] Comment on above: Result Comment: Canc elled via OM: Order cancelled - Patient discharged Performed By: #### L 500.2500, L100.0100 ####[facility] [address] [place], [address] CL Normal 98-107 [facility] Comment on above: Result Comment: Canc elled via OM: Order cancelled - Patient discharged Performed By: #### L 500.2500, L100.0100 ####[facility] [address] [place], [address] CO2 Normal 21.0-32.0 [facility] Comment on above: Result Comment: Canc elled via OM: Order cancelled - Patient discharged Performed By: #### L 500.2500, L100.0100 ####[facility] [address] [place], [address] CREAT,SERUM Normal 0.70-1.30 [facility] Comment on above: Result Comment: Canc elled via OM: Order cancelled - Patient discharged Performed By: #### L 500.2500, L100.0100 ####[facility] [address] [place], [address] EST GFR Normal >60 [facility] Comment on above: Result Comment: Canc elled via OM: Order cancelled - Patient discharged Performed By: #### L 500.2500, L100.0100 ####[facility] [address] [place], [address] EST GFR - AA Normal >60 [facility] Comment on above: Result Comment: Canc elled via OM: Order cancelled - Patient discharged Performed By: #### L 500.2500, L100.0100 ####[facility] [address] [place], [address] GAP Normal 5-15 [facility] Comment on above: Result Comment: Canc elled via OM: Order cancelled - Patient discharged Performed By: #### L 500.2500, L100.0100 ####[facility] [address] [place], [address] GLU Normal 74-106 [facility] Comment on above: Result Comment: Canc elled via OM: Order cancelled - Patient discharged Performed By: #### L 500.2500, L100.0100 ####[facility] [address] [place], [address] Potassium Normal 3.5-5.1 [facility] Comment on above: Result Comment: Canc elled via OM: Order cancelled - Patient discharged Performed By: #### L 500.2500, L100.0100 ####[facility] [address] [place], [address] Basic Metabolic Profile (BMP) Normal 136-145 [facility] Comment on above: Result Comment: Canc elled via OM: Order cancelled - Patient discharged Performed By: #### L 500.2500, L100.0100 ####[facility] [address] [place], [address] CBC W/Diff, Automatedon 11-1 Absolute Neut Normal 2.0-7.7 [facility] Comment on above: Result Comment: Canc elled via OM: Order cancelled - Patient discharged Performed By: #### L 500.2500, L100.0100 ####[facility] [address] [place], [address] HCT Normal 40-54 [facility] Comment on above: Result Comment: Canc elled via OM: Order cancelled - Patient discharged Performed By: #### L 500.2500, L100.0100 ####[facility] [address] [place], [address] HGB Normal 13.0-16.5 [facility] Comment on above: Result Comment: Canc elled via OM: Order cancelled - Patient discharged Performed By: #### L 500.2500, L100.0100 ####[facility] [address] [place], [address] MCH Normal 27.0-32.0 [facility] Comment on above: Result Comment: Canc elled via OM: Order cancelled - Patient discharged Performed By: #### L 500.2500, L100.0100 ####[facility] [address] [place], [address] MCHC Normal 32-36 [facility] Comment on above: Result Comment: Canc elled via OM: Order cancelled - Patient discharged Performed By: #### L 500.2500, L100.0100 ####[facility] [address] [place], [address] MCV Normal 80-94 [facility] Comment on above: Result Comment: Canc elled via OM: Order cancelled - Patient discharged Performed By: #### L 500.2500, L100.0100 ####[facility] [address] [place], [address] NEUT% Normal 47-70 [facility] Comment on above: Result Comment: Canc elled via OM: Order cancelled - Patient discharged Performed By: #### L 500.2500, L100.0100 ####[facility] [address] [place], [address] PLT Normal 150-450 [facility] Comment on above: Result Comment: Canc elled via OM: Order cancelled - Patient discharged Performed By: #### L 500.2500, L100.0100 ####[facility] [address] [place], [address] RBC Normal 4.6-6.2 [facility] Comment on above: Result Comment: Canc elled via OM: Order cancelled - Patient discharged Performed By: #### L 500.2500, L100.0100 ####[facility] [address] [place], [address] RDW CV Normal 11.6-14.6 [facility] Comment on above: Result Comment: Canc elled via OM: Order cancelled - Patient discharged Performed By: #### L 500.2500, L100.0100 ####[facility] [address] [place], [address] RDW SD Normal 35.1-43.9 [facility] Comment on above: Result Comment: Canc elled via OM: Order cancelled - Patient discharged Performed By: #### L 500.2500, L100.0100 ####[facility] [address] [place], [address] WBC Normal 4.4-11.0 [facility] Comment on above: Result Comment: Canc elled via OM: Order cancelled - Patient discharged Performed By: #### L 500.2500, L100.0100 ####[facility] [address] [place], [address] Basic Metabolic Profile (BMP )on 09-14-2024 BUN/CRE 21.4 RATIO High 10-20 [facility] Comment on above: Performed By: #### L 500.2500, L100.0100 ####[facility] [address] [place], [address] CA,Total 8.7 mg/dL Normal 8.5-10.1 [facility] Comment on above: Performed By: #### L 500.2500, L100.0100 ####[facility] [address] [place], [address] Chloride [Moles/Vol] 104 mmol/L Normal 98-107 [facility] Comment on above: Performed By: #### L 500.2500, L100.0100 ####[facility] [address] [place], [address] CO2 [Moles/Vol] 24.0 mmol/L Normal 21.0-32.0 [facility] Comment on above: Performed By: #### L 500.2500, L100.0100 ####[facility] [address] [place], [address] Creatinine [Mass/Vol] 1.96 mg/dL High 0.70-1.30 [facility] Comment on above: Result Comment: The validity of the calculated GFR GFRAA in patients over70 years has not been determined. Clinical correlation isessential. Performed By: #### L 500.2500, L100.0100 ####[facility] [address] [place], [address] ECRCL 28.02 ml/min Normal [facility] Comment on above: Performed By: #### L 500.2500, L100.0100 ####[facility] [address] [place], [address] EST GFR - AA 43 mL/min Low >60 [facility] Comment on above: Result Comment: Afri can Dominican GFR Calc Performed By: #### L 500.2500, L100.0100 ####[facility] [address] [place], [address] GAP 7 Normal 5-15 [facility] Comment on above: Performed By: #### L 500.2500, L100.0100 ####[facility] [address] [place], [address] GFR/1.73 sq M.predicted among non-blacks MDRD (S/P/Bld) [Vol rate/Area] 35 mL/min/{1.73_m2} Low >60 [facility] Comment on above: Result Comment: Non- GFR Calc Performed By: #### L 500.2500, L100.0100 ####[facility] [address] [place], [address] Glucose [Mass/Vol] 292 mg/dL High 74-106 [facility] Comment on above: Result Comment: Gluc ose result greater than or equal to 200 mg/dLsuggests DIABETES MELLITUS per A.D.A. criteria. Performed By: #### L 500.2500, L100.0100 ####[facility] [address] [place], [address] Potassium [Moles/Vol] 4.0 mmol/L Normal 3.5-5.1 [facility] Comment on above: Performed By: #### L 500.2500, L100.0100 ####[facility] [address] [place], [address] Sodium [Moles/Vol] 135 mmol/L Low 136-145 [facility] Comment on above: Performed By: #### L 500.2500, L100.0100 ####[facility] [address] [place], [address] Urea nitrogen [Mass/Vol] 42 mg/dL High 7-18 [facility] Comment on above: Performed By: #### L 500.2500, L100.0100 ####[facility] [address] [place], [address] Bedside Glucoseon 09-14-2024 [place] GLU 276 mg/dL High 74-106 [facility] Comment on above: Result Comment: Dr James sim FollowedInsulin GivenMANAGEMENT OF PATIENT CARE PER NURSING PROTOCOL Performed By: #### L 501.080 ####[facility] [address] [place], [address] CBC W/Diff, Automatedon 09-01 Absolute Lymph 1.66 X10 3/uL Normal 0.83-4.51 [facility] Comment on above: Performed By: #### L 500.2500, L100.0100 ####[facility] [address] [place], [address] Absolute Neut 7.6 X10 3/uL Normal 2.0-7.7 [facility] Comment on above: Performed By: #### L 500.2500, L100.0100 ####[facility] [address] [place], [address] Basophils/100 WBC (Bld) 0.9 % Normal 0-1 [facility] Comment on above: Performed By: #### L 500.2500, L100.0100 ####[facility] [address] [place], [address] Eosinophils/100 WBC (Bld) 2.2 % Normal 0-5 [facility] Comment on above: Performed By: #### L 500.2500, L100.0100 ####[facility] [address] [place], [address] Erythrocyte distribution width (RBC) [Ratio] 13.4 % Normal 11.6-14.6 [facility] [facility] Comment on above: Performed By: #### L 500.2500, L100.0100 ####[facility] [address] [place], [address] Hematocrit (Bld) [Volume fraction] 32.8 % Low 40-54 [facility] Comment on above: Performed By: #### L 500.2500, L100.0100 ####[facility] [address] [place], [address] Hemoglobin (Bld) [Mass/Vol] 11.1 g/dL Low 13.0-16.5 [facility] Comment on above: Performed By: #### L 500.2500, L100.0100 ####[facility] [address] [place], [address] IG% 0.300 Normal 0.0-0.9 [facility] Comment on above: Result Comment: IG% - Immature Granulocytes (promyelocytes, myelocytes andmetamyelocytes) > 1% indicates that a LEFT SHIFT is Present. Performed By: #### L 500.2500, L100.0100 ####[facility] [address] [place], [address] Lymphocytes/100 WBC (Bld) 15.7 % Low 19-41 [facility] Comment on above: Performed By: #### L 500.2500, L100.0100 ####[facility] [address] [place], [address] MCH (RBC) [Entitic mass] 30.7 pg Normal 27.0-32.0 [facility] Comment on above: Performed By: #### L 500.2500, L100.0100 ####[facility] [address] [place], [address] MCHC (RBC) [Mass/Vol] 33.8 g/dL Normal 32-36 [facility] Comment on above: Performed By: #### L 500.2500, L100.0100 ####[facility] [address] [place], [address] MCV (RBC) [Entitic vol] 90.6 fL Normal 80-94 [facility] Comment on above: Performed By: #### L 500.2500, L100.0100 ####[facility] [address] [place], [address] Monocytes/100 WBC (Bld) 9.0 % Normal 0-10 [facility] Comment on above: Performed By: #### L 500.2500, L100.0100 ####[facility] [address] [place], [address] Neutrophils/100 WBC (Bld) 71.9 % High 47-70 [facility] Comment on above: Performed By: #### L 500.2500, L100.0100 ####[facility] [address] [place], [address] Nucleated RBC (Bld) [#/Vol] 0 10*3/uL Normal 0-5 [facility] Comment on above: Performed By: #### L 500.2500, L100.0100 ####[facility] [address] [place], [address] Platelet mean volume (Bld) [Entitic vol] 11.9 fL Normal 6.2-12.0 [facility] Comment on above: Performed By: #### L 500.2500, L100.0100 ####[facility] [address] [place], [address] Platelets (Bld) [#/Vol] 186 10*3/uL Normal 150-450 [facility] Comment on above: Performed By: #### L 500.2500, L100.0100 ####[facility] [address] [place], [address] RBC (Bld) [#/Vol] 3.62 10*6/uL Low 4.6-6.2 [facility] Comment on above: Performed By: #### L 500.2500, L100.0100 ####[facility] [address] [place], [address] RDW SD 44.5 fl High 35.1-43.9 [facility] Comment on above: Performed By: #### L 500.2500, L100.0100 ####[facility] [address] [place], [address] WBC (Bld) [#/Vol] 10.5 10*3/uL Normal 4.4-11.0 [facility] Comment on above: Performed By: #### L 500.2500, L100.0100 ####[facility] [address] [place], [address] Basic Metabolic Profile (BMP )on 09-13-2024 BUN Normal 7-18 [facility] Comment on above: Result Comment: Canc elled via OM: MD Ordered Performed By: #### L 500.2500, L100.0100 ####[facility] [address] [place], [address] BUN/CRE Normal 10-20 [facility] Comment on above: Result Comment: Canc elled via OM: MD Ordered Performed By: #### L 500.2500, L100.0100 ####[facility] [address] [place], [address] CA,Total Normal 8.5-10.1 [facility] Comment on above: Result Comment: Canc elled via OM: MD Ordered Performed By: #### L 500.2500, L100.0100 ####[facility] [address] [place], [address] CL Normal 98-107 [facility] Comment on above: Result Comment: Canc elled via OM: MD Ordered Performed By: #### L 500.2500, L100.0100 ####[facility] [address] [place], [address] CO2 Normal 21.0-32.0 [facility] Comment on above: Result Comment: Canc elled via OM: MD Ordered Performed By: #### L 500.2500, L100.0100 ####[facility] [address] [place], [address] CREAT,SERUM Normal 0.70-1.30 [facility] Comment on above: Result Comment: Canc elled via OM: MD Ordered Performed By: #### L 500.2500, L100.0100 ####[facility] [address] [place], [address] EST GFR Normal >60 [facility] Comment on above: Result Comment: Canc elled via OM: MD Ordered Performed By: #### L 500.2500, L100.0100 ####[facility] [address] [place], [address] EST GFR - AA Normal >60 [facility] Comment on above: Result Comment: Canc elled via OM: MD Ordered Performed By: #### L 500.2500, L100.0100 ####[facility] [address] [place], [address] GAP Normal 5-15 [facility] Comment on above: Result Comment: Canc elled via OM: MD Ordered Performed By: #### L 500.2500, L100.0100 ####[facility] [address] [place], [address] GLU Normal 74-106 [facility] Comment on above: Result Comment: Canc elled via OM: MD Ordered Performed By: #### L 500.2500, L100.0100 ####[facility] [address] [place], [address] Potassium Normal 3.5-5.1 [facility] Comment on above: Result Comment: Canc elled via OM: MD Ordered Performed By: #### L 500.2500, L100.0100 ####[facility] [address] [place], [address] Basic Metabolic Profile (BMP) Normal 136-145 [facility] Comment on above: Result Comment: Canc elled via OM: MD Ordered Performed By: #### L 500.2500, L100.0100 ####[facility] [address] [place], [address] BUN/CRE 17.4 RATIO Normal 10-20 [facility] Comment on above: Performed By: #### L 501.5200, L500.2500, L501.2300, L100.0100 ####[facility] [address] [place], [address] CA,Total 8.7 mg/dL Normal 8.5-10.1 [facility] Comment on above: Performed By: #### L 501.5200, L500.2500, L501.2300, L100.0100 ####[facility] [address] [place], [address] Chloride [Moles/Vol] 105 mmol/L Normal 98-107 [facility] Comment on above: Performed By: #### L 501.5200, L500.2500, L501.2300, L100.0100 ####[facility] [address] [place], [address] CO2 [Moles/Vol] 28.0 mmol/L Normal 21.0-32.0 [facility] Comment on above: Performed By: #### L 501.5200, L500.2500, L501.2300, L100.0100 ####[facility] [address] [place], [address] Creatinine [Mass/Vol] 1.78 mg/dL High 0.70-1.30 [facility] Comment on above: Result Comment: The validity of the calculated GFR GFRAA in patients over70 years has not been determined. Clinical correlation isessential. Performed By: #### L 501.5200, L500.2500, L501.2300, L100.0100 ####[facility] [address] [place], [address] ECRCL 30.95 ml/min Normal [facility] Comment on above: Performed By: #### L 501.5200, L500.2500, L501.2300, L100.0100 ####[facility] [address] [place], [address] EST GFR - AA 47 mL/min Low >60 [facility] Comment on above: Result Comment: Afri can Dominican GFR Calc Performed By: #### L 501.5200, L500.2500, L501.2300, L100.0100 ####[facility] [address] [place], [address] GAP 7 Normal 5-15 [facility] Comment on above: Performed By: #### L 501.5200, L500.2500, L501.2300, L100.0100 ####[facility] [address] [place], [address] GFR/1.73 sq M.predicted among non-blacks MDRD (S/P/Bld) [Vol rate/Area] 39 mL/min/{1.73_m2} Low >60 [facility] Comment on above: Result Comment: Non- GFR Calc Performed By: #### L 501.5200, L500.2500, L501.2300, L100.0100 ####[facility] [address] [place], [address] Glucose [Mass/Vol] 138 mg/dL High 74-106 [facility] Comment on above: Result Comment: Fast ing Glucose result greater than or equal to 126 mg/dLsuggests DIABETES MELLITUS per A.D.A. criteria. Performed By: #### L 501.5200, L500.2500, L501.2300, L100.0100 ####[facility] [address] [place], [address] Potassium [Moles/Vol] 3.4 mmol/L Low 3.5-5.1 [facility] Comment on above: Performed By: #### L 501.5200, L500.2500, L501.2300, L100.0100 ####[facility] [address] [place], [address] Sodium [Moles/Vol] 140 mmol/L Normal 136-145 [facility] Comment on above: Performed By: #### L 501.5200, L500.2500, L501.2300, L100.0100 ####[facility] [address] [place], [address] Urea nitrogen [Mass/Vol] 31 mg/dL High 7-18 [facility] Comment on above: Performed By: #### L 501.5200, L500.2500, L501.2300, L100.0100 ####[facility] [address] [place], [address] Bedside Glucoseon 09-13-2024 FINGERSTICK GLU 281 mg/dL High 74-106 [facility] Comment on above: Result Comment: ADITI GEMENT OF PATIENT CARE PER NURSING PROTOCOL Performed By: #### L 501.080 ####[facility] [address] [place], [address] FINGERSTICK GLU 179 mg/dL High 74-106 [facility] Comment on above: Result Comment: ADITI GEMENT OF PATIENT CARE PER NURSING PROTOCOL Performed By: #### L 501.080 ####[facility] [address] [place], [address] FINGERSTICK GLU 234 mg/dL High 74-106 [facility] Comment on above: Result Comment: ADITI GEMENT OF PATIENT CARE PER NURSING PROTOCOL Performed By: #### L 501.080 ####[facility] [address] [place], [address] FINGERSTICK GLU 238 mg/dL High 74-106 [facility] Comment on above: Result Comment: ADITI GEMENT OF PATIENT CARE PER NURSING PROTOCOL Performed By: #### L 501.080 ####[facility] [address] [place], [address] FINGERSTICK GLU 126 mg/dL High 74-106 [facility] Comment on above: Result Comment: ADITI GEMENT OF PATIENT CARE PER NURSING PROTOCOL Performed By: #### L 501.080 ####[facility] [address] [place], [address] CBC W/Diff, Automatedon 11- Absolute Neut Normal 2.0-7.7 [facility] Comment on above: Result Comment: Canc elled via OM: MD Ordered Performed By: #### L 500.2500, L100.0100 ####[facility] [address] [place], [address] HCT Normal 40-54 [facility] Comment on above: Result Comment: Canc elled via OM: MD Ordered Performed By: #### L 500.2500, L100.0100 ####[facility] [address] [place], [address] HGB Normal 13.0-16.5 [facility] Comment on above: Result Comment: Canc elled via OM: MD Ordered Performed By: #### L 500.2500, L100.0100 ####[facility] [address] [place], [address] MCH Normal 27.0-32.0 [facility] Comment on above: Result Comment: Canc elled via OM: MD Ordered Performed By: #### L 500.2500, L100.0100 ####[facility] [address] [place], [address] MCHC Normal 32-36 [facility] Comment on above: Result Comment: Canc elled via OM: MD Ordered Performed By: #### L 500.2500, L100.0100 ####[facility] [address] [place], [address] MCV Normal 80-94 [facility] Comment on above: Result Comment: Canc elled via OM: MD Ordered Performed By: #### L 500.2500, L100.0100 ####[facility] [address] [place], [address] NEUT% Normal 47-70 [facility] Comment on above: Result Comment: Canc elled via OM: MD Ordered Performed By: #### L 500.2500, L100.0100 ####[facility] [address] [place], [address] PLT Normal 150-450 [facility] Comment on above: Result Comment: Canc elled via OM: MD Ordered Performed By: #### L 500.2500, L100.0100 ####[facility] [address] [place], [address] RBC Normal 4.6-6.2 [facility] Comment on above: Result Comment: Canc elled via OM: MD Ordered Performed By: #### L 500.2500, L100.0100 ####[facility] [address] [place], [address] RDW CV Normal 11.6-14.6 [facility] Comment on above: Result Comment: Canc elled via OM: MD Ordered Performed By: #### L 500.2500, L100.0100 ####[facility] [address] [place], [address] RDW SD Normal 35.1-43.9 [facility] Comment on above: Result Comment: Canc elled via OM: MD Ordered Performed By: #### L 500.2500, L100.0100 ####[facility] [address] [place], [address] WBC Normal 4.4-11.0 [facility] Comment on above: Result Comment: Canc elled via OM: MD Ordered Performed By: #### L 500.2500, L100.0100 ####[facility] [address] [place], [address] Absolute Lymph 2.32 X10 3/uL Normal 0.83-4.51 [facility] Comment on above: Performed By: #### L 501.5200, L500.2500, L501.2300, L100.0100 ####[facility] [address] [place], [address] Absolute Neut 7.4 X10 3/uL Normal 2.0-7.7 [facility] Comment on above: Performed By: #### L 501.5200, L500.2500, L501.2300, L100.0100 ####[facility] [address] [place], [address] Basophils/100 WBC (Bld) 0.8 % Normal 0-1 [facility] Comment on above: Performed By: #### L 501.5200, L500.2500, L501.2300, L100.0100 ####[facility] [address] [place], [address] Eosinophils/100 WBC (Bld) 1.3 % Normal 0-5 [facility] Comment on above: Performed By: #### L 501.5200, L500.2500, L501.2300, L100.0100 ####[facility] [address] [place], [address] Erythrocyte distribution width (RBC) [Ratio] 13.8 % Normal 11.6-14.6 [facility] Comment on above: Performed By: #### L 501.5200, L500.2500, L501.2300, L100.0100 ####[facility] [address] [place], [address] Hematocrit (Bld) [Volume fraction] 30.7 % Low 40-54 [facility] Comment on above: Performed By: #### L 501.5200, L500.2500, L501.2300, L100.0100 ####[facility] [address] [place], [address] Hemoglobin (Bld) [Mass/Vol] 10.4 g/dL Low 13.0-16.5 [facility] Comment on above: Performed By: #### L 501.5200, L500.2500, L501.2300, L100.0100 ####[facility] [address] [place], [address] IG% 0.400 Normal 0.0-0.9 [facility] Comment on above: Result Comment: IG% - Immature Granulocytes (promyelocytes, myelocytes andmetamyelocytes) > 1% indicates that a LEFT SHIFT is Present. Performed By: #### L 501.5200, L500.2500, L501.2300, L100.0100 ####[facility] [address] [place], [address] Lymphocytes/100 WBC (Bld) 21.2 % Normal 19-41 [facility] Comment on above: Performed By: #### L 501.5200, L500.2500, L501.2300, L100.0100 ####[facility] [address] [place], [address] MCH (RBC) [Entitic mass] 30.6 pg Normal 27.0-32.0 [facility] Comment on above: Performed By: #### L 501.5200, L500.2500, L501.2300, L100.0100 ####[facility] [address] [place], [address] MCHC (RBC) [Mass/Vol] 33.9 g/dL Normal 32-36 [facility] Comment on above: Performed By: #### L 501.5200, L500.2500, L501.2300, L100.0100 ####[facility] [address] [place], [address] MCV (RBC) [Entitic vol] 90.3 fL Normal 80-94 [facility] Comment on above: Performed By: #### L 501.5200, L500.2500, L501.2300, L100.0100 ####[facility] [address] [place], [address] Monocytes/100 WBC (Bld) 9.3 % Normal 0-10 [facility] Comment on above: Performed By: #### L 501.5200, L500.2500, L501.2300, L100.0100 ####[facility] [address] [place], [address] Neutrophils/100 WBC (Bld) 67.0 % Normal 47-70 [facility] Comment on above: Performed By: #### L 501.5200, L500.2500, L501.2300, L100.0100 ####[facility] [address] [place], [address] Nucleated RBC (Bld) [#/Vol] 0 10*3/uL Normal 0-5 [facility] Comment on above: Performed By: #### L 501.5200, L500.2500, L501.2300, L100.0100 ####[facility] [address] [place], [address] Platelet mean volume (Bld) [Entitic vol] 11.4 fL Normal 6.2-12.0 [facility] Comment on above: Performed By: #### L 501.5200, L500.2500, L501.2300, L100.0100 ####[facility] [address] [place], [address] Platelets (Bld) [#/Vol] 168 10*3/uL Normal 150-450 [facility] Comment on above: Performed By: #### L 501.5200, L500.2500, L501.2300, L100.0100 ####[facility] [address] [place], [address] RBC (Bld) [#/Vol] 3.40 10*6/uL Low 4.6-6.2 [facility] Comment on above: Performed By: #### L 501.5200, L500.2500, L501.2300, L100.0100 ####[facility] [address] [place], [address] RDW SD 45.1 fl High 35.1-43.9 [facility] Comment on above: Performed By: #### L 501.5200, L500.2500, L501.2300, L100.0100 ####[facility] [address] [place], [address] WBC (Bld) [#/Vol] 11.0 10*3/uL Normal 4.4-11.0 [facility] Comment on above: Performed By: #### L 501.5200, L500.2500, L501.2300, L100.0100 ####[facility] [address] [place], [address] Magnesiumon 09-13-2024 Magnesium [Mass/Vol] 2.0 mg/dL Normal 1.6-2.6 [facility] Comment on above: Performed By: #### L 501.5200, L500.2500, L501.2300, L100.0100 ####[facility] [address] [place], [address] Phosphoruson 09-13-2024 Phosphate [Mass/Vol] 3.2 mg/dL Normal 2.5-4.9 [facility] Comment on above: Performed By: #### L 501.5200, L500.2500, L501.2300, L100.0100 ####[facility] [address] [place], [address] 12 Lead EKGon 09-12-2024 12 Lead EKG Normal [facility] BNP,B-Type NATRIURETIC PEPTI Silviano 09-12-2024 Natriuretic peptide B (Bld) [Mass/Vol] 903.4 pg/mL High 0-100 [facility] Comment on above: Performed By: #### L 100.0100, L501.5425, L300.3900, L501.5200, L300.4310, L500.2500, L503.6620 ####[facility] [address] [place], [address] Basic Metabolic Profile (BMP )on 09-12-2024 BUN/CRE 14.5 RATIO Normal 10-20 [facility] Comment on above: Order Comment: 1Y Performed By: #### L 100.0100, L501.5425, L300.3900, L501.5200, L300.4310, L500.2500, L503.6620 ####[facility] [address] [place], [address] CA,Total 9.1 mg/dL Normal 8.5-10.1 [facility] Comment on above: Order Comment: 1Y Performed By: #### L 100.0100, L501.5425, L300.3900, L501.5200, L300.4310, L500.2500, L503.6620 ####[facility] [address] [place], [address] Chloride [Moles/Vol] 105 mmol/L Normal 98-107 [facility] Comment on above: Order Comment: 1Y Performed By: #### L 100.0100, L501.5425, L300.3900, L501.5200, L300.4310, L500.2500, L503.6620 ####[facility] [address] [place], [address] CO2 [Moles/Vol] 22.0 mmol/L Normal 21.0-32.0 [facility] Comment on above: Order Comment: 1Y Performed By: #### L 100.0100, L501.5425, L300.3900, L501.5200, L300.4310, L500.2500, L503.6620 ####[facility] [address] [place], [address] Creatinine [Mass/Vol] 1.86 mg/dL High 0.70-1.30 [facility] Comment on above: Order Comment: 1Y Result Comment: The validity of the calculated GFR GFRAA in patients over70 years has not been determined. Clinical correlation isessential. Performed By: #### L 100.0100, L501.5425, L300.3900, L501.5200, L300.4310, L500.2500, L503.6620 ####[facility] [address] [place], [address] ECRCL 29.61 ml/min Normal [facility] Comment on above: Order Comment: 1Y Performed By: #### L 100.0100, L501.5425, L300.3900, L501.5200, L300.4310, L500.2500, L503.6620 ####[facility] [address] [place], [address] EST GFR - AA 45 mL/min Low >60 [facility] Comment on above: Order Comment: 1Y Result Comment: Afri can Dominican GFR Calc Performed By: #### L 100.0100, L501.5425, L300.3900, L501.5200, L300.4310, L500.2500, L503.6620 ####[facility] [address] [place], [address] GAP 11 Normal 5-15 [facility] Comment on above: Order Comment: 1Y Performed By: #### L 100.0100, L501.5425, L300.3900, L501.5200, L300.4310, L500.2500, L503.6620 ####[facility] [address] [place], [address] GFR/1.73 sq M.predicted among non-blacks MDRD (S/P/Bld) [Vol rate/Area] 37 mL/min/{1.73_m2} Low >60 [facility] Comment on above: Order Comment: 1Y Result Comment: Non- GFR Calc Performed By: #### L 100.0100, L501.5425, L300.3900, L501.5200, L300.4310, L500.2500, L503.6620 ####[facility] [address] [place], [address] Glucose [Mass/Vol] 369 mg/dL High 74-106 [facility] Comment on above: Order Comment: 1Y Result Comment: Gluc ose result greater than or equal to 200 mg/dLsuggests DIABETES MELLITUS per A.D.A. criteria. Performed By: #### L 100.0100, L501.5425, L300.3900, L501.5200, L300.4310, L500.2500, L503.6620 ####[facility] [address] [place], [address] Potassium [Moles/Vol] 4.1 mmol/L Normal 3.5-5.1 [facility] Comment on above: Order Comment: 1Y Performed By: #### L 100.0100, L501.5425, L300.3900, L501.5200, L300.4310, L500.2500, L503.6620 ####[facility] [address] [place], [address] Sodium [Moles/Vol] 138 mmol/L Normal 136-145 [facility] Comment on above: Order Comment: 1Y Performed By: #### L 100.0100, L501.5425, L300.3900, L501.5200, L300.4310, L500.2500, L503.6620 ####[facility] [id number] [place], [address] Urea nitrogen [Mass/Vol] 27 mg/dL High 7-18 [facility] Comment on above: Order Comment: 1Y Performed By: #### L 100.0100, L501.5425, L300.3900, L501.5200, L300.4310, L500.2500, L503.6620 ####[facility] [id number] [place], [address] Bedside Glucoseon 09-12-2024 [facility] GLU 202 mg/dL High 74-106 [facility] Comment on above: Result Comment: ADITI GEMENT OF PATIENT CARE PER NURSING PROTOCOL Performed By: #### L 501.080 ####[facility] [address] [place], [address] FINGERSTICK GLU 122 mg/dL High 74-106 [facility] Comment on above: Result Comment: ADITI GEMENT OF PATIENT CARE PER NURSING PROTOCOL Performed By: #### L 501.080 ####[facility] [address] [place], [address] FINGERSTICK GLU 398 mg/dL High 74-106 [facility] Comment on above: Result Comment: ADITI GEMENT OF PATIENT CARE PER NURSING PROTOCOL Performed By: #### L 501.080 ####[facility] [address] [place], [address] FINGERSTICK GLU 377 mg/dL High 74-106 [facility] Comment on above: Result Comment: ADITI ESCOBEDO OF PATIENT CARE PER NURSING PROTOCOL Performed By: #### L 501.080 ####[facility] [address] [place], [address] CBC W/Diff, Automatedon 11- Absolute Lymph 2.62 X10 3/uL Normal 0.83-4.51 [facility] Comment on above: Performed By: #### L 100.0100, L501.5425, L300.3900, L501.5200, L300.4310, L500.2500, L503.6620 ####[facility] [address] [place], [address] Absolute Neut 19.7 X10 3/uL High 2.0-7.7 [facility] Comment on above: Performed By: #### L 100.0100, L501.5425, L300.3900, L501.5200, L300.4310, L500.2500, L503.6620 ####[facility] [address] [place], [address] Basophils/100 WBC (Bld) 0.7 % Normal 0-1 [facility] Comment on above: Performed By: #### L 100.0100, L501.5425, L300.3900, L501.5200, L300.4310, L500.2500, L503.6620 ####[facility] [address] [place], [address] Eosinophils/100 WBC (Bld) 0.8 % Normal 0-5 [facility] Comment on above: Performed By: #### L 100.0100, L501.5425, L300.3900, L501.5200, L300.4310, L500.2500, L503.6620 ####[facility] [address] [place], [address] Erythrocyte distribution width (RBC) [Ratio] 13.8 % Normal 11.6-14.6 [facility] Comment on above: Performed By: #### L 100.0100, L501.5425, L300.3900, L501.5200, L300.4310, L500.2500, L503.6620 ####[facility] [address] [place], [address] Hematocrit (Bld) [Volume fraction] 38.9 % Low 40-54 [facility] Comment on above: Performed By: #### L 100.0100, L501.5425, L300.3900, L501.5200, L300.4310, L500.2500, L503.6620 ####[facility] [address] [place], [address] Hemoglobin (Bld) [Mass/Vol] 13.1 g/dL Normal 13.0-16.5 [facility] Comment on above: Performed By: #### L 100.0100, L501.5425, L300.3900, L501.5200, L300.4310, L500.2500, L503.6620 ####[facility] [address] [place], [address] IG% 0.800 Normal 0.0-0.9 [facility] Comment on above: Result Comment: IG% - Immature Granulocytes (promyelocytes, myelocytes andmetamyelocytes) > 1% indicates that a LEFT SHIFT is Present. Performed By: #### L 100.0100, L501.5425, L300.3900, L501.5200, L300.4310, L500.2500, L503.6620 ####[facility] [address] [place], [address] Lymphocytes/100 WBC (Bld) 10.7 % Low 19-41 [facility] Comment on above: Performed By: #### L 100.0100, L501.5425, L300.3900, L501.5200, L300.4310, L500.2500, L503.6620 ####[facility] [address] [place], [address] MCH (RBC) [Entitic mass] 30.6 pg Normal 27.0-32.0 [facility] Comment on above: Performed By: #### L 100.0100, L501.5425, L300.3900, L501.5200, L300.4310, L500.2500, L503.6620 ####[facility] [address] [place], [address] MCHC (RBC) [Mass/Vol] 33.7 g/dL Normal 32-36 [facility] Comment on above: Performed By: #### L 100.0100, L501.5425, L300.3900, L501.5200, L300.4310, L500.2500, L503.6620 ####[facility] [address] [place], [address] MCV (RBC) [Entitic vol] 90.9 fL Normal 80-94 [facility] Comment on above: Performed By: #### L 100.0100, L501.5425, L300.3900, L501.5200, L300.4310, L500.2500, L503.6620 ####[facility] [address] [place], [address] Monocytes/100 WBC (Bld) 6.2 % Normal 0-10 [facility] Comment on above: Performed By: #### L 100.0100, L501.5425, L300.3900, L501.5200, L300.4310, L500.2500, L503.6620 ####[facility] [address] [place], [address] Neutrophils/100 WBC (Bld) 80.8 % High 47-70 [facility] Comment on above: Performed By: #### L 100.0100, L501.5425, L300.3900, L501.5200, L300.4310, L500.2500, L503.6620 ####[facility] [address] [place], [address] Nucleated RBC (Bld) [#/Vol] 0 10*3/uL Normal 0-5 [facility] Comment on above: Performed By: #### L 100.0100, L501.5425, L300.3900, L501.5200, L300.4310, L500.2500, L503.6620 ####[facility] [address] [place], [address] Platelet mean volume (Bld) [Entitic vol] 11.4 fL Normal 6.2-12.0 [facility] Comment on above: Performed By: #### L 100.0100, L501.5425, L300.3900, L501.5200, L300.4310, L500.2500, L503.6620 ####[facility] [address] [place], [address] Platelets (Bld) [#/Vol] 227 10*3/uL Normal 150-450 [facility] Comment on above: Performed By: #### L 100.0100, L501.5425, L300.3900, L501.5200, L300.4310, L500.2500, L503.6620 ####[facility] [address] [place], [address] RBC (Bld) [#/Vol] 4.28 10*6/uL Low 4.6-6.2 [facility] Comment on above: Performed By: #### L 100.0100, L501.5425, L300.3900, L501.5200, L300.4310, L500.2500, L503.6620 ####[facility] [address] [place], [address] RDW SD 46.5 fl High 35.1-43.9 [facility] Comment on above: Performed By: #### L 100.0100, L501.5425, L300.3900, L501.5200, L300.4310, L500.2500, L503.6620 ####[facility] [address] [place], [address] WBC (Bld) [#/Vol] 24.4 10*3/uL High 4.4-11.0 [facility] Comment on above: Performed By: #### L 100.0100, L501.5425, L300.3900, L501.5200, L300.4310, L500.2500, L503.6620 ####[facility] [address] [place], [address] Chest 1 View (Portable)on Chest 1 View (Portable) Normal [facility] Echo Completeon 09-12-2024 Echo Complete Normal [facility] Emergency Department Summary on 09-12-2024 Emergency Department Summary Normal [facility] Kidney and Bladderon 024 Kidney and Bladder Normal [facility] L501.4020on 09-12-2024 TROPONIN-I HS 346 pg/mL Invalid Interpretation Code 3.0-78.0 [facility] Comment on above: Order Comment: 'TROP ' Serial specimen #1, #2 or #3: 3 Result Comment: Crit ical Result(s) Called at: 09:19:13 09/12/2024 by:Eve Mendoza to Tania Cruz. Results read back by same. Please Note: New Test Units and Gender Specific Reference Ranges. For more information see Policy Stat Procedure [place] High Sensitivity Troponin (TNIH) and attachments. Performed By: #### L 501.4020 ####[facility] [address] [place], [address] TROPONIN-I HS 205 pg/mL Invalid Interpretation Code 3.0-78.0 [facility] Comment on above: Result Comment: Crit ical Result(s) Called at: 06:27:52 09/12/2024 by:Eve Valiente. Results read back by same. Please Note: New Test Units and Gender Specific Reference Ranges. For more information see Policy Stat Procedure [place] High Sensitivity Troponin (TNIH) and attachments. Performed By: #### L 501.4020 ####[facility] [address] [place], [address] L501.5425on 09-12-2024 TROPONIN-I HS 57 pg/mL Normal 3.0-78.0 [facility] Comment on above: Order Comment: 1Y Result Comment: Helder francisco Note: New Test Units and Gender Specific Reference Ranges. For more information see Policy Stat Procedure [place] High Sensitivity Troponin (TNIH) and attachments. Performed By: #### L 100.0100, L501.5425, L300.3900, L501.5200, L300.4310, L500.2500, L503.6620 ####[facility] [address] [place], [address] Magnesiumon 09-12-2024 Magnesium [Mass/Vol] 2.1 mg/dL Normal 1.6-2.6 [facility] Comment on above: Order Comment: 1Y Performed By: #### L 100.0100, L501.5425, L300.3900, L501.5200, L300.4310, L500.2500, L503.6620 ####[facility] [address] [place], [address] Partial Thromboplast Timeon 09-12-2024 aPTT Coag (Bld) [Time] 35.1 s Normal 24.1-36.2 [facility] Comment on above: Performed By: #### L 100.0100, L501.5425, L300.3900, L501.5200, L300.4310, L500.2500, L503.6620 ####[facility] [address] [place], [address] Prothrombin Time w/INRon INR Coag (PPP) [Relative time] 1.1 {INR} Normal [facility] Comment on above: Performed By: #### L 100.0100, L501.5425, L300.3900, L501.5200, L300.4310, L500.2500, L503.6620 ####[facility] [address] [place], [address] PT Coag (PPP) [Time] 14.6 s Normal 11.7-14.9 [facility] Comment on above: Performed By: #### L 100.0100, L501.5425, L300.3900, L501.5200, L300.4310, L500.2500, L503.6620 ####[facility] [address] [place], [place], [address] Renal Artery Duplex Ultrasou ndon 09-12-2024 Renal Artery Duplex Ultrasound Normal [facility] CBC W Auto Differential pane l (Bld)on 07-07-2024 Basophils (Bld) [#/Vol] 0.09 x10*3/uL Normal 0.00-0.10 [facility] Comment on above: Performed By: #### 5 7021-8 #### MAGGI PARNELL ([id number]) [facility] ([facility]) [address] [place] [address] Basophils/100 WBC (Bld) 1.1 % Normal 0.0-2.0 [facility] Comment on above: Performed By: #### 5 7021-8 #### MAGGI PARNELL ([id number]) [facility] ([facility]) [address] [place] [place] [address] Eosinophils (Bld) [#/Vol] 0.43 x10*3/uL High 0.00-0. 40 [facility] Comment on above: Performed By: #### 5 7021-8 #### MAGGI PARNELL ([id number]) [facility] ([facility]) [address] [place] [address] Eosinophils/100 WBC (Bld) 5.4 % Normal 0.0-6.0 [facility] Comment on above: Performed By: #### 5 7021-8 #### MAGGI PARNELL ([id number]) [facility] ([facility]) [address] [place] [address] Erythrocyte distribution width (RBC) [Ratio] 13.5 % Normal 11.5-14.5 [facility] Comment on above: Performed By: #### 5 7021-8 #### MAGGI PARNELL ([id number]) [facility] ([facility]) [address] [place] [address] Hematocrit (Bld) [Volume fraction] 43.5 % Normal 41.0-52.0 [facility] Comment on above: Performed By: #### 5 7021-8 #### MAGGI PARNELL ([id number]) [facility] ([facility]) [address] [place] [address]114 Hemoglobin (Bld) [Mass/Vol] 13.6 g/dL Normal 13.5-17.5 [facility] Comment on above: Performed By: #### 5 7021-8 #### MAGGI PARNELL ([id number]) [facility] ([facility]) [address] [place] [address]328 Immature granulocytes (Bld) [#/Vol] 0.02 x10*3/uL Normal 0.00-0.50 [facility] Comment on above: Performed By: #### 5 7021-8 #### MAGGI PARNELL ([id number]) [facility] ([facility]) [address] [place] [address] 24766 Immature granulocytes/100 WBC (Bld) 0.3 % Normal 0.0-0.9 [facility] Comment on above: Result Comment: Arielle ture Granulocyte Count (IG) includes promyelocytes, myelocytes and metamyelocytes but does not include bands. Percent differential counts (%) should be interpreted in the context of the absolute cell counts (cells/UL). Performed By: #### 5 7021-8 #### MAGGI PARNELL ([id number]) [facility] ([facility]) [address] [place] [address]382 Lymphocytes (Bld) [#/Vol] 2.08 x10*3/uL Normal 0.80-3. 00 [facility] Comment on above: Performed By: #### 5 7021-8 #### MAGGI PARNELL ([id number]) [facility] ([facility]) [address] [place] [address] 20934 Lymphocytes/100 WBC (Bld) 26.3 % Normal 13.0-44.0 [facility] Comment on above: Performed By: #### 5 7021-8 #### MAGGI PARNELL ([id number]) [facility] ([facility]) [address] [place] [address] 80785 MCH (RBC) [Entitic mass] 30.4 pg Normal 26.0-34.0 [facility] Comment on above: Performed By: #### 5 7021-8 #### MAGGI PARNELL ([id number]) [facility] ([facility]) [address] [place] [address] 84061 MCHC (RBC) [Mass/Vol] 31.3 g/dL Low 32.0-36.0 [facility] Comment on above: Performed By: #### 5 7021-8 #### MAGGI PARNELL ([id number]) [facility] ([facility]) [address] [place] [address] 26691 MCV (RBC) [Entitic vol] 97 fL Normal 80-100 [facility] Comment on above: Performed By: #### 5 7021-8 #### MAGGI PARNELL ([id number]) [facility] ([facility]) [address] [place] [address] 55895 Monocytes (Bld) [#/Vol] 0.60 x10*3/uL Normal 0.05-0.80 [facility] Comment on above: Performed By: #### 5 7021-8 #### MAGGI PARNELL ([id number]) [facility] ([facility]) [address] [place] [address] 26491 Monocytes/100 WBC (Bld) 7.6 % Normal 2.0-10.0 [facility] Comment on above: Performed By: #### 5 7021-8 #### MAGGI PARNELL ([id number]) [facility] ([facility]) [address] [place] [address] 63236 Neutrophils (Bld) [#/Vol] 4.68 x10*3/uL Normal 1.60-5. 50 [facility] Comment on above: Result Comment: Perc ent differential counts (%) should be interpreted in the context of the absolute cell counts (cells/uL). Performed By: #### 5 7021-8 #### MAGGI PARNELL ([id number]) [facility] ([facility]) [address] [place] [address] 39873 Neutrophils/100 WBC (Bld) 59.3 % Normal 40.0-80.0 [facility] Comment on above: Performed By: #### 5 7021-8 #### MAGGI PARNELL ([id number]) [facility] ([facility]) [address] [place] [address] 52062 Nucleated RBC/100 WBC (Bld) [Ratio] 0.0 /100 WBCs Normal 0.0-0.0 [facility] Comment on above: Performed By: #### 5 7021-8 #### MAGGI PARNELL ([id number]) [facility] ([facility]) [address] [place] [place] [address] 79579 Platelets (Bld) [#/Vol] 260 x10*3/uL Normal 150-450 [facility] Comment on above: Performed By: #### 5 7021-8 #### MAGGI PARNELL ([id number]) [facility] ([facility]) [address] [place] [address] 35248 RBC (Bld) [#/Vol] 4.48 x10*6/uL Low 4.50-5.90 [facility] Comment on above: Performed By: #### 5 7021-8 #### MAGGI PARNELL ([id number]) [facility] ([facility]) [address] [place] [address] 98629 WBC (Bld) [#/Vol] 7.9 x10*3/uL Normal 4.4-11.3 [facility] Comment on above: Performed By: #### 5 7021-8 #### MAGGI PARNELL ([id number]) [facility] ([facility]) [address] [place] [place] [address] 81566 Comprehensive metabolic 2000 panelon 07-07-2024 Albumin BCP dye [Mass/Vol] 4.3 g/dL Normal 3.4-5.0 [facility] Comment on above: Performed By: #### 2 4323-8 #### MAGGI PARNELL ([id number]) [facility] ([facility]) [address] [place] [address] 02066 ALP [Catalytic activity/Vol] 69 U/L Normal 33-136 [facility] Comment on above: Performed By: #### 2 4323-8 #### MAGGI PARNELL ([id number]) [facility] ([facility]) [address] [place] [address] 56534 ALT With P-5'-P [Catalytic activity/Vol] 8 U/L Low 10-52 [facility] Comment on above: Result Comment: Twila ents treated with Sulfasalazine may generate falsely decreased results for ALT. Performed By: #### 2 4323-8 #### MAGGI PARNELL ([id number]) [facility] ([facility]) [address] [place] [address] 29273 Anion gap [Moles/Vol] 14 mmol/L Normal 10-20 [facility] Comment on above: Performed By: #### 2 4323-8 #### MAGGI PARNELL ([id number]) [facility] ([facility]) [address] [place] [address] 31732 AST With P-5'-P [Catalytic activity/Vol] 13 U/L Normal 9-39 [facility] Comment on above: Performed By: #### 2 4323-8 #### MAGGI PARNELL ([id number]) [facility] ([facility]) [address] [place] [address] 26229 Bilirubin [Mass/Vol] 0.5 mg/dL Normal 0.0-1.2 [facility] Comment on above: Performed By: #### 2 4323-8 #### MAGGI PARNELL ([id number]) [facility] ([facility]) [address] [place] [address] Calcium [Mass/Vol] 9.5 mg/dL Normal 8.6-10.3 [facility] Comment on above: Performed By: #### 2 4323-8 #### MAGGI PARNELL ([id number]) [facility] ([facility]) [address] [place] [address] Chloride [Moles/Vol] 106 mmol/L Normal 98-107 [facility] Comment on above: Performed By: #### 2 4323-8 #### MAGGI PARNELL ([id number]) [facility] ([facility]) [address] [place] [address] CO2 [Moles/Vol] 27 mmol/L Normal 21-32 [facility] Comment on above: Performed By: #### 2 4323-8 #### MAGGI PARNELL ([id number]) [facility] ([facility]) [address] [place] [address] Creatinine [Mass/Vol] 1.61 mg/dL High 0.50-1.30 [facility] Comment on above: Performed By: #### 2 4323-8 #### MAGGI PARNELL ([id number]) [facility] ([facility]) [address] [place] [address] Glomerular filtration rate/1.73 sq M.predicted 43 mL/min/1.73m*2 Low >60 [facility] Comment on above: Result Comment: Calc ulations of estimated GFR are performed using the 2020 CKD-EPI Study Refit equation without the race variable for the IDMS-Traceable creatinine methods. https://jasn.asnjournals.org/content//ASN.20 73202953 Performed By: #### 2 4323-8 #### MAGGI PARNELL ([id number]) [facility] ([facility]) [address] [place] [address] Glucose [Mass/Vol] 119 mg/dL High 74-99 [facility] Comment on above: Performed By: #### 2 4323-8 #### MAGGI PARNELL ([id number]) [facility] ([facility]) [address] [place] [address] 59875 Potassium [Moles/Vol] 4.0 mmol/L Normal 3.5-5.3 [facility] Comment on above: Performed By: #### 2 4323-8 #### MAGGI PARNELL ([id number]) [facility] ([facility]) [address] [place] [address] 60962 Protein [Mass/Vol] 6.8 g/dL Normal 6.4-8.2 [facility] Comment on above: Performed By: #### 2 4323-8 #### MAGGI PARNELL ([id number]) [facility] ([facility]) [address] [place] [address] 29421 Sodium [Moles/Vol] 143 mmol/L Normal 136-145 [facility] Comment on above: Performed By: #### 2 4323-8 #### MAGGI PARNELL ([id number]) [facility] ([facility]) [address] [place] [address] 85805 Urea nitrogen [Mass/Vol] 28 mg/dL High 6-23 [facility] Comment on above: Performed By: #### 2 4323-8 #### MAGGI PARNELL ([id number]) [facility] ([facility]) [address] [place] [address] 19934 HbA1c (Bld) [Mass fraction]o n 07-07-2024 Average glucose Estimated from glycated hemoglobin (Bld) [Mass/Vol] 180 mg/dL Normal Not Established [facility] Comment on above: Order Comment: Diagn osis of Diabetes-Adults Non-Diabetic: < or = 5.6% Increased risk for developing diabetes: 5.7-6.4% Diagnostic of diabetes: > or = 6.5% Performed By: #### 4 548-4 #### ALENA Paredes ([id number]) [facility] ([facility]) [id number] [place] [address] Hemoglobin A1c/Hemoglobin.to alcira 07-07-2024 HbA1c (Bld) [Mass fraction] 7.9 % High see below [facility] Comment on above: Order Comment: Diagn osis of Diabetes-Adults Non-Diabetic: < or = 5.6% Increased risk for developing diabetes: 5.7-6.4% Diagnostic of diabetes: > or = 6.5% Performed By: #### 4 548-4 #### ALENA Paredes ([id number]) [facility] ([facility]) [address] [place] [address] Phosphateon 07-07-2024 Phosphate [Mass/Vol] 3.8 mg/dL Normal 2.5-4.9 [facility] Comment on above: Result Comment: The performance characteristics of phosphorus testing in heparinized plasma have been validated by the individual laboratory site where testing is performed. Testing on heparinized plasma is not approved by the FDA; however, such approval is not necessary. Performed By: #### 2 777-1 #### MAGGI PARNELL ([id number]) [facility] ([facility]) [address] [place] [address] Thyrotropinon 07-07-2024 TSH Qn 0.85 m[IU]/L Normal 0.44-3.98 [facility] Comment on above: Order Comment: TSH t esting is performed using different testing methodology at [facility] than at other [facility]. Direct result comparisons should only be made within the same method. Performed By: #### 3 016-3 #### MAGGI PARNELL ([id number]) [facility] ([facility]) [facility] [place] [id number] Thyroxine.freeon 07-07-2024 Free T4 [Mass/Vol] 1.01 ng/dL Normal 0.61-1.12 [facility] Comment on above: Order Comment: Thyro xine Free testing is performed using different testing methodology at [facility] than at other [facility] [...] By: #### 3 024-7 #### MAGGI PARNELL ([id number]) [facility] ([facility]) [address] [place] [address] 03848 Urateon 07-07-2024 Urate [Mass/Vol] 5.7 mg/dL Normal 4.0-7.5 [facility] Comment on above: Result Comment: Hortencia puncture immediately after or during the administration of Metamizole may lead to falsely low results. Testing should be performed immediately prior to Metamizole dosing. Performed By: #### 3 084-1 #### MAGGI PARNELL ([id number]) [facility] ([facility]) [address] [place] [address]798 PT D/C Summary (1)on 024 PT D/C Summary (1) Normal [facility] Albumin/Creatinineon 024 Albumin/Creatinine DL <= 20 mg/L (U) [Mass ratio] 221.6 ug/mg Creat High <30.0 [facility] Comment on above: Performed By: #### 1 4959-1 #### ALENA Paredes ([id number]) [facility] ([facility]) [address] [place] [address] Albumin/Creatinine DL <= 20 mg/L (U) [Mass ratio]on 02-07-2024 Albumin DL <= 20 mg/L (U) [Mass/Vol] 219.8 mg/L Normal Not established [facility] Comment on above: Performed By: #### 1 4959-1 #### ALENA Paredes ([id number]) [facility] ([facility]) [address] [place] [address] Creatinine (U) [Mass/Vol] 99.2 mg/dL Normal 20.0-370.0 [facility] Comment on above: Performed By: #### 1 4959-1 #### ALENA Paredes ([id number]) [facility] ([facility]) [id number] [place] [address] Comprehensive metabolic 2000 panelon 02-07-2024 Albumin BCP dye [Mass/Vol] 4.0 g/dL Normal 3.4-5.0 [facility] Comment on above: Performed By: #### 2 4323-8 #### MAGGI PARNELL ([id number]) [facility] ([facility]) [facility] [place] [address] ALP [Catalytic activity/Vol] 77 U/L Normal 33-136 [facility] Comment on above: Performed By: #### 2 432-8 #### MAGGI PARNELL ([id number]) [facility] ([facility]) [address] [place] [id number] ALT With P-5'-P [Catalytic activity/Vol] 7 U/L Low 10-52 [facility] Comment on above: Result Comment: Twila ents treated with Sulfasalazine may generate falsely decreased results for ALT. Performed By: #### 2 4323-8 #### MAGGI PARNELL ([id number]) [facility] ([facility]) [address] [place] [address] Anion gap [Moles/Vol] 12 mmol/L Normal 10-20 [facility] Comment on above: Performed By: #### 2 4323-8 #### MAGGI PARNELL ([id number]) [facility] ([facility]) [address] [place] [place] [phone] AST With P-5'-P [Catalytic activity/Vol] 14 U/L Normal 9-39 [facility] Comment on above: Performed By: #### 2 4323-8 #### MAGGI PARNELL ([id number]) [facility] ([facility]) [facility] [place] [address] Bilirubin [Mass/Vol] 0.4 mg/dL Normal 0.0-1.2 [facility] Comment on above: Performed By: #### 2 4323-8 #### MAGGI PARNELL ([id number]) [facility] ([facility]) [address] [place] [place] [address] Calcium [Mass/Vol] 9.2 mg/dL Normal 8.6-10.3 [facility] Comment on above: Performed By: #### 2 4323-8 #### MAGGI PARNELL ([id number]) [facility] ([facility]) [facility] [place] [address] Chloride [Moles/Vol] 105 mmol/L Normal 98-107 [facility] Comment on above: Performed By: #### 2 4323-8 #### MAGGI PARNELL ([id number]) [facility] ([facility]) [address] [place] [place] [address]208 CO2 [Moles/Vol] 29 mmol/L Normal 21-32 [facility] Comment on above: Performed By: #### 2 4323-8 #### MAGGI PARNELL ([id number]) [facility] ([facility]) [address] [place] [place] [address] Creatinine [Mass/Vol] 1.92 mg/dL High 0.50-1.30 [facility] Comment on above: Performed By: #### 2 4323-8 #### MAGGI PARNELL ([id number]) [facility] ([facility]) [address] [place] [place] [address] Glomerular filtration rate/1.73 sq M.predicted 35 mL/min/1.73m*2 Low >60 [facility] Comment on above: Result Comment: Calc ulations of estimated GFR are performed using the 2020 CKD-EPI Study Refit equation without the race variable for the IDMS-Traceable creatinine methods. https://jasn.asnjournals.org/content/early//ASN.20 75558475 Performed By: #### 2 4323-8 #### MAGGI PARNELL ([id number]) [facility] ([facility]) [address] [place] [place] [address] Glucose [Mass/Vol] 81 mg/dL Normal 74-99 [facility] Comment on above: Performed By: #### 2 4323-8 #### MAGGI PARNELL ([id number]) [facility] ([facility]) [address] [place] [address]05 Potassium [Moles/Vol] 4.5 mmol/L Normal 3.5-5.3 [facility] Comment on above: Performed By: #### 2 4323-8 #### MAGGI PARNELL ([id number]) [facility] ([facility]) [address] [place] [address] Protein [Mass/Vol] 6.4 g/dL Normal 6.4-8.2 [facility] Comment on above: Performed By: #### 2 4323-8 #### MAGGI PARNELL ([id number]) [facility] ([facility]) [address] [place] [address] Sodium [Moles/Vol] 141 mmol/L Normal 136-145 [facility] Comment on above: Performed By: #### 2 4323-8 #### MAGGI PARNELL ([id number]) [facility] ([facility]) [address] [place] [address] Urea nitrogen [Mass/Vol] 29 mg/dL High 6-23 [facility] Comment on above: Performed By: #### 2 4323-8 #### MAGGI PARNELL ([id number]) [facility] ([facility]) [address] [place] [address] Basophil percentageOrdered B y: Ryley Jeter on 12-15-2023 Chloride [Moles/Vol] 109 mmol/L 98-107 [facility] Glucose [Mass/Vol] 126 mg/dL 74-106 [facility] Comment on above: Fasting Glucose resu lt greater than or equal to 126 mg/dL suggests DIABETES MELLITUS per A.D.A. criteria. Potassium [Moles/Vol] 4.1 mmol/L 3.5-5.1 [facility] Sodium [Moles/Vol] 140 mmol/L 136-145 [facility] - Chemistry and C hemistry - challengeOrdered By: Ryley Jeter on 12-15-2023 CO2 [Moles/Vol] 29.0 mmol/L 21.0-32.0 [facility] Urea nitrogen/Creatinine [Mass ratio] 14.9 mg/mg 10-20 [facility] No Panel InformationOrdered By: Ryley Jeter on 12-15-2023 Estimated GFR (MDRD) Amer 45 mL/min >60 [facility] Comment on above: GFR Calc Estimated GFR (MDRD) Non-Af Amer 37 mL/min >60 [facility] Comment on above: Non- GFR Calc Serum or plasma calcium nikkie urement (mass/volume)Ordered By: Ryley Jeter on 12-15-2023 Calcium [Mass/Vol] 9.4 mg/dL 8.5-10.1 [facility] Serum or plasma creatinine m easurement (mass/volume)Ordered By: Ryley Jeter on 12-15-2023 Creatinine [Mass/Vol] 1.88 mg/dL 0.70-1.30 [facility] Comment on above: The validity of the calculated GFR & GFRAA in patients over 70 years has not been determined. Clinical correlation is essential. Serum or plasma urea nitroge n measurement (mass/volume)Ordered By: Ryley Jeter on 12-15-2023 Urea nitrogen [Mass/Vol] 28 mg/dL 7-18 [facility] Thin prep Papanicolaou smear with manual screeningOrdered By: Ryley Jeter on 12-15-2023 Thin prep Papanicolaou smear with manual screening 2 5-15 [facility] APTTOrdered By: Burton lr on 12-01-2023 aPTT Coag (Bld) [Time] 35 s High [facility] Basic metabolic 2000 panelon 12-01-2023 Anion gap [Moles/Vol] 10 mmol/L 10 - 2 0 mmol/L [facility] Calcium [Mass/Vol] 8.9 mg/dL 8.4 - 10. 2 mg/dL [facility] Chloride [Moles/Vol] 105 mmol/L 98 - 10 8 mmol/L [facility] Creatinine [Mass/Vol] 1.76 mg/dL High 0.80 - 1.30 mg/dL [facility] GFR/1.73 sq M.predicted CKD-EPI (S/P/Bld) [Vol rate/Area] 39 Low - PINF [facility] Glucose [Mass/Vol] 82 mg/dL 65 - 99 mg/dL [facility] [Moles/Vol] 30 mmol/L 21 - 32 mmol/L [facility] Interpretation and review of laboratory results Abnormal [facility] Potassium [Moles/Vol] 3.4 mmol/L Low 3.5 - 5.1 mmol/L [facility] Sodium [Moles/Vol] 142 mmol/L 135 - 145 mmol/L [facility] Urea nitrogen [Mass/Vol] 26 mg/dL High 8 - 25 mg/d L [facility] Urea nitrogen/Creatinine [Mass ratio] 14.8 mg/mg 10.0 - 20.0 [facility] CBC Auto Differentialon 11-03 Basophils (Bld) [#/Vol] 0.06 10*3/uL [facility] Basophils/100 WBC (Bld) 0.7 % [facility] Eosinophils (Bld) [#/Vol] 0.61 10*3/uL High [facility] Eosinophils/100 WBC (Bld) 7.4 % [facility] Erythrocyte distribution width (RBC) [Entitic vol] 13.3 % 11.6 - 14.8 % [facility] Hematocrit (Bld) [Volume fraction] 36.6 % Low 41.0 - 53.0 % [facility] Hemoglobin (Bld) [Mass/Vol] 12.0 g/dL Low 13.5 - 17.5 g/dL [facility] Immature granulocytes (Bld) [#/Vol] 0.02 10*3/uL [facility] Immature granulocytes/100 WBC (Bld) 0.20 % [facility] Interpretation and review of laboratory results Abnormal [facility] Lymphocytes (Bld) [#/Vol] 1.32 10*3/uL [facility] Lymphocytes/100 WBC (Bld) 16.1 % [facility] MCH (RBC) [Entitic mass] 30.5 pg 26. 0 - 34.0 pg [facility] MCHC (RBC) [Mass/Vol] 32.8 g/dL 31.0 - 37.0 g/dL [facility] MCV (RBC) [Entitic vol] 92.9 fL 80.0 - 100.0 fL [facility] Monocytes (Bld) [#/Vol] 0.96 10*3/uL High [facility] Monocytes/100 WBC (Bld) 11.7 % [facility] Neutrophils (Bld) [#/Vol] 5.25 10*3/uL [facility] Neutrophils/100 WBC (Bld) 63.9 % [facility] Nucleated RBC (Bld) [#/Vol] 0.00 10*3/uL [facility] Nucleated RBC/100 WBC (Bld) [Ratio] 0.0 % [facility] Platelet mean volume (Bld) [Entitic vol] 12.4 fL 9.4 - 12.4 fL [facility] Platelets (Bld) [#/Vol] 115 10*3/uL Low [facility] RBC (Bld) [#/Vol] 3.94 10*6/uL Low [facility] WBC (Bld) [#/Vol] 8.22 10*3/uL [facility] (Bld[facility] [Mass/Vol]on 0 12-01-2023 Glucose [Mass/Vol] 151 mg/dL High 65 - 99 mg/dL [facility] Interpretation and review of laboratory results Abnormal [facility] Glucose [Mass/Vol] 472 mg/dL Critically high 65 - 99 mg/d L [facility] Interpretation and review of laboratory results Abnormal [facility] Glucose [Mass/Vol] 454 mg/dL Critically high 65 - 99 mg/d L [facility] Interpretation and review of laboratory results Abnormal [facility] Glucose [Mass/Vol] 87 mg/dL 65 - 99 mg/dL [facility] Interpretation and review of laboratory results Normal [facility] Magnesium Levelon 12-01-2023 Magnesium [Mass/Vol] 2.1 mg/dL 1.6 - 2 .4 mg/dL [facility] Magnesium [Mass/Vol]on 12-01 Interpretation and review of laboratory results Normal [facility] aPTT Coag (Bld) [Time]Ordere d By: Burton Zendejas on 12-01-2023 Interpretation and review of laboratory results Abnormal [facility] APTTOrdered By: Zoila Marcano e on 11-30-2023 aPTT Coag (Bld) [Time] 35 s High [facility] Basic metabolic 2000 panelon 11-30-2023 Anion gap [Moles/Vol] 9 mmol/L Low 10 - 2 0 mmol/L [facility] Calcium [Mass/Vol] 8.6 mg/dL 8.4 - 10. 2 mg/dL [facility] Chloride [Moles/Vol] 104 mmol/L 98 - 10 8 mmol/L [facility] Creatinine [Mass/Vol] 1.77 mg/dL High 0.80 - 1.30 mg/dL [facility] GFR/1.73 sq M.predicted CKD-EPI (S/P/Bld) [Vol rate/Area] 39 Low - PINF [facility] Glucose [Mass/Vol] 322 mg/dL High 65 - 99 mg/dL [facility] HCO3 [Moles/Vol] 29 mmol/L 21 - 32 mmol/L [facility] Interpretation and review of laboratory results Abnormal [facility] Potassium [Moles/Vol] 3.8 mmol/L 3.5 - 5.1 mmol/L [facility] Sodium [Moles/Vol] 138 mmol/L 135 - 145 mmol/L [facility] Urea nitrogen [Mass/Vol] 30 mg/dL High 8 - 25 mg/d L [facility] Urea nitrogen/Creatinine [Mass ratio] 16.9 mg/mg 10.0 - 20.0 [facility] CBC Auto Differentialon 11-03 Basophils (Bld) [#/Vol] 0.08 10*3/uL [facility] Basophils/100 WBC (Bld) 0.9 % [facility] Eosinophils (Bld) [#/Vol] 0.71 10*3/uL High [facility] Eosinophils/100 WBC (Bld) 8.0 % [facility] Erythrocyte distribution width (RBC) [Entitic vol] 13.5 % 11.6 - 14.8 % [facility] alth Hematocrit (Bld) [Volume fraction] 35.9 % Low 41.0 - 53.0 % [facility] Hemoglobin (Bld) [Mass/Vol] 11.8 g/dL Low 13.5 - 17.5 g/dL [facility] Immature granulocytes (Bld) [#/Vol] 0.03 10*3/uL [facility] Immature granulocytes/100 WBC (Bld) 0.30 % [facility] Interpretation and review of laboratory results Abnormal [facility] Lymphocytes (Bld) [#/Vol] 1.18 10*3/uL [facility] Lymphocytes/100 WBC (Bld) 13.3 % [facility] MCH (RBC) [Entitic mass] 30.5 pg 26. 0 - 34.0 pg [facility] MCHC (RBC) [Mass/Vol] 32.9 g/dL 31.0 - 37.0 g/dL [facility] MCV (RBC) [Entitic vol] 92.8 fL 80.0 - 100.0 fL [facility] Monocytes (Bld) [#/Vol] 0.84 10*3/uL [facility] Monocytes/100 WBC (Bld) 9.4 % [facility] Neutrophils (Bld) [#/Vol] 6.05 10*3/uL [facility] Neutrophils/100 WBC (Bld) 68.1 % [facility] Nucleated RBC (Bld) [#/Vol] 0.00 10*3/uL [facility] Nucleated RBC/100 WBC (Bld) [Ratio] 0.0 % [facility] Platelet mean volume (Bld) [Entitic vol] 12.1 fL 9.4 - 12.4 fL [facility] Platelets (Bld) [#/Vol] 120 10*3/uL Low [facility] RBC (Bld) [#/Vol] 3.87 10*6/uL Low [facility]alth WBC (Bld) [#/Vol] 8.89 10*3/uL [facility] ealth [facility] CT Chest WO contraston 11-30 Gentis RIS Gentis RIS [facility] CT Chest WO contrastOrdered By: Alice Kaminski on 11-30-2023 [facility] Work Phone: Echocardiogram completeon Aortic valve area 2.09065 cm [facility] AV mean gradient 3.31115 mmHg [facility] AV peak gradient 6.17522 mmHg [facility] EF 63.3016 % [facility] FUJI SYNAPSE CV [facility] Electrocardiogram, 12-leadon 11-30-2023 Atrial Rate 97 BPM [facility] P [place] 77 degrees [facility] P-R Interval 152 ms [facility] Q-T Interval 376 ms [facility] QRS Duration 76 ms [facility] QTC Calculation (Bezet) 477 ms [facility] R [place] 72 degrees [facility] T [place] 51 degrees [facility] Ventricular Rate 97 BPM [facility] MUSE [facility] Glucose (Bld) [Mass/Vol]on 0 11-30-2023 Glucose [Mass/Vol] 190 mg/dL High 65 - 99 mg/dL [facility] Interpretation and review of laboratory results Abnormal [facility] Glucose [Mass/Vol] 103 mg/dL High 65 - 99 mg/dL [facility] Interpretation and review of laboratory results Abnormal [facility] Magnesium Levelon 11-30-2023 Magnesium [Mass/Vol] 2.2 mg/dL 1.6 - 2 .4 mg/dL [facility] Magnesium [Mass/Vol]on 11-30 Interpretation and review of laboratory results Normal [facility] No Panel Informationon 11-30 [facility] aPTT Coag (Bld) [Time]Ordere d By: Zoila Ruiz on 11-30-2023 Interpretation and review of laboratory results Abnormal [facility] APTTon 11-29-2023 aPTT Coag (Bld) [Time] 38 s High [facility] APTT Heparin Coverageon 11-02 aPTT Coag (Bld) [Time] 98 s High [facility] Interpretation and review of laboratory results Abnormal [facility] APTT Heparin CoverageOrdered By: Tania Escobedo on 11-29-2023 aPTT Coag (Bld) [Time] Critically high [facility] Interpretation and review of laboratory results Abnormal [facility] Bacteria identified Aer cx N om (Sput)Ordered By: Franco Armenta on 11-29-2023 Microscopic observation Gram stain Nom (Sput) Few WBC [facility] Microscopic observation Gram stain Nom (Sput) Few Epithelial Cells [facility] ealt Microscopic observation Gram stain Nom (Sput) Positive [facility] Microscopic observation Gram stain Nom (Sput) Rare Mixed [facility] Basic metabolic 2000 panelon 11-29-2023 Anion gap [Moles/Vol] 7 mmol/L Low 10 - 2 0 mmol/L [facility] Calcium [Mass/Vol] 8.4 mg/dL 8.4 - 10. 2 mg/dL [facility] Chloride [Moles/Vol] 106 mmol/L 98 - 10 8 mmol/L [facility] Creatinine [Mass/Vol] 1.91 mg/dL High 0.80 - 1.30 mg/dL [facility] GFR/1.73 sq M.predicted CKD-EPI (S/P/Bld) [Vol rate/Area] 35 Low - PINF [facility] Glucose [Mass/Vol] 234 mg/dL High 65 - 99 mg/dL [facility] HCO3 [Moles/Vol] 28 mmol/L 21 - 32 mmol/L [facility] Interpretation and review of laboratory results Abnormal [facility] Potassium [Moles/Vol] 4.0 mmol/L 3.5 - 5.1 mmol/L [facility] Sodium [Moles/Vol] 137 mmol/L 135 - 145 mmol/L [facility] Urea nitrogen [Mass/Vol] 34 mg/dL High 8 - 25 mg/d L [facility] Urea nitrogen/Creatinine [Mass ratio] 17.8 mg/mg 10.0 - 20.0 [facility] CBC Auto Differentialon 11-02 Basophils (Bld) [#/Vol] 0.10 10*3/uL [facility] Basophils/100 WBC (Bld) 0.9 % [facility] Eosinophils (Bld) [#/Vol] 0.48 10*3/uL [facility] Eosinophils/100 WBC (Bld) 4.4 % [facility] Erythrocyte distribution width (RBC) [Entitic vol] 14.0 % 11.6 - 14.8 % [facility] Hematocrit (Bld) [Volume fraction] 32.8 % Low 41.0 - 53.0 % [facility] Hemoglobin (Bld) [Mass/Vol] 10.7 g/dL Low 13.5 - 17.5 g/dL [facility] Immature granulocytes (Bld) [#/Vol] 0.05 10*3/uL [facility] Immature granulocytes/100 WBC (Bld) 0.50 % [facility] Interpretation and review of laboratory results Abnormal [facility] Lymphocytes (Bld) [#/Vol] 1.92 10*3/uL [facility] Lymphocytes/100 WBC (Bld) 17.7 % [facility] MCH (RBC) [Entitic mass] 30.6 pg 26. 0 - 34.0 pg [facility] MCHC (RBC) [Mass/Vol] 32.6 g/dL 31.0 - 37.0 g/dL [facility] MCV (RBC) [Entitic vol] 93.7 fL 80.0 - 100.0 fL [facility] Monocytes (Bld) [#/Vol] 1.02 10*3/uL High [facility] Monocytes/100 WBC (Bld) 9.4 % [facility] Neutrophils (Bld) [#/Vol] 7.26 10*3/uL High [facility] Neutrophils/100 WBC (Bld) 67.1 % [facility] Nucleated RBC (Bld) [#/Vol] 0.00 10*3/uL [facility] Nucleated RBC/100 WBC (Bld) [Ratio] 0.0 % [facility] Platelet mean volume (Bld) [Entitic vol] 12.1 fL 9.4 - 12.4 fL [facility] Platelets (Bld) [#/Vol] 130 10*3/uL Low [facility] RBC (Bld) [#/Vol] 3.50 10*6/uL Low [facility]alth WBC (Bld) [#/Vol] 10.83 10*3/uL [facility] CT Chest WO contraston 11-29 Radiology Study observation (narrative) [facility] Glucose (Bld) [Mass/Vol]on 0 11-29-2023 Glucose [Mass/Vol] 174 mg/dL High 65 - 99 mg/dL [facility] Interpretation and review of laboratory results Abnormal [facility] Glucose [Mass/Vol] 266 mg/dL High 65 - 99 mg/dL [facility] Interpretation and review of laboratory results Abnormal [facility] HbA1c (Bld) [Mass fraction]O rdered By: Lidia Ruff on 11-29-2023 Average glucose Estimated from glycated hemoglobin (Bld) [Mass/Vol] 174 mg/dL High 68 - 114 mg/dL [facility] Interpretation and review of laboratory results Abnormal [facility] Hemoglobin [id number] By: Davina Ruff on 11-29-2023 HbA1c (Bld) [Mass fraction] 7.7 % High 4.0 - 5.6 % [facility] Magnesium Levelon 11-29-2023 Magnesium [Mass/Vol] 2.2 mg/dL 1.6 - 2 .4 mg/dL [facility] Magnesium [Mass/Vol]on 11-29 Interpretation and review of laboratory results Normal [facility] No Panel Informationon 11-29 [facility] Sputum Aerobic CultureOrdere d By: Franco Armenta on 11-29-2023 Bacteria identified Aer cx Nom (Sput) Normal Kyler After 48 Hours [facility] aPTT Coag (Bld) [Time]on Interpretation and review of laboratory results Abnormal [facility] APTTon 11-28-2023 aPTT Coag (Bld) [Time] 102 s High [facility] Basic metabolic 2000 panelon 11-28-2023 Anion gap [Moles/Vol] 13 mmol/L 10 - 2 0 mmol/L [facility] Calcium [Mass/Vol] 9.0 mg/dL 8.4 - 10. 2 mg/dL [facility] Chloride [Moles/Vol] 110 mmol/L High 98 - 10 8 mmol/L [facility] Creatinine [Mass/Vol] 1.99 mg/dL High 0.80 - 1.30 mg/dL [facility] GFR/1.73 sq M.predicted CKD-EPI (S/P/Bld) [Vol rate/Area] 34 Low - PINF [facility] Glucose [Mass/Vol] 183 mg/dL High 65 - 99 mg/dL [facility] HCO3 [Moles/Vol] 23 mmol/L 21 - 32 mmol/L [facility] Interpretation and review of laboratory results Abnormal [facility] Potassium [Moles/Vol] 4.3 mmol/L 3.5 - 5.1 mmol/L [facility] Sodium [Moles/Vol] 142 mmol/L 135 - 145 mmol/L [facility] Urea nitrogen [Mass/Vol] 33 mg/dL High 8 - 25 mg/d L [facility] Urea nitrogen/Creatinine [Mass ratio] 16.6 mg/mg 10.0 - 20.0 [facility] Anion gap [Moles/Vol] 9 mmol/L Low 10 - 2 0 mmol/L [facility] Calcium [Mass/Vol] 8.8 mg/dL 8.4 - 10. 2 mg/dL [facility] Chloride [Moles/Vol] 111 mmol/L High 98 - 10 8 mmol/L [facility] Creatinine [Mass/Vol] 2.03 mg/dL High 0.80 - 1.30 mg/dL [facility] GFR/1.73 sq M.predicted CKD-EPI (S/P/Bld) [Vol rate/Area] 33 Low - PINF [facility] Glucose [Mass/Vol] 160 mg/dL High 65 - 99 mg/dL [facility] HCO3 [Moles/Vol] 27 mmol/L 21 - 32 mmol/L [facility] Interpretation and review of laboratory results Abnormal [facility] Potassium [Moles/Vol] 4.3 mmol/L 3.5 - 5.1 mmol/L [facility] Sodium [Moles/Vol] 143 mmol/L 135 - 145 mmol/L [facility] Urea nitrogen [Mass/Vol] 34 mg/dL High 8 - 25 mg/d L [facility] Urea nitrogen/Creatinine [Mass ratio] 16.7 mg/mg 10.0 - 20.0 [facility] Anion gap [Moles/Vol] 10 mmol/L 10 - 2 0 mmol/L [facility] Calcium [Mass/Vol] 8.7 mg/dL 8.4 - 10. 2 mg/dL [facility] Chloride [Moles/Vol] 112 mmol/L High 98 - 10 8 mmol/L [facility] Creatinine [Mass/Vol] 2.03 mg/dL High 0.80 - 1.30 mg/dL [facility] GFR/1.73 sq M.predicted CKD-EPI (S/P/Bld) [Vol rate/Area] 33 Low - PINF [facility] Glucose [Mass/Vol] 119 mg/dL High 65 - 99 mg/dL [facility] HCO3 [Moles/Vol] 24 mmol/L 21 - 32 mmol/L [facility] Interpretation and review of laboratory results Abnormal [facility] Potassium [Moles/Vol] 3.9 mmol/L 3.5 - 5.1 mmol/L [facility] Sodium [Moles/Vol] 142 mmol/L 135 - 145 mmol/L [facility] Urea nitrogen [Mass/Vol] 35 mg/dL High 8 - 25 mg/d L [facility] Urea nitrogen/Creatinine [Mass ratio] 17.2 mg/mg 10.0 - 20.0 [facility] Beta hydroxybutyrate [Moles/ Vol]on 11-28-2023 Interpretation and review of laboratory results Abnormal [facility] Interpretation and review of laboratory results Abnormal [facility] Beta-Hydroxybutyrateon 11-28 Beta hydroxybutyrate [Moles/Vol] 0.8 mmol/L High 0.0 - 0.3 mmol/L [facility] Beta hydroxybutyrate [Moles/Vol] 0.4 mmol/L High 0.0 - 0.3 mmol/L [facility] Beta hydroxybutyrate [Moles/Vol] 0.6 mmol/L High 0.0 - 0.3 mmol/L [facility] CBC Auto Differentialon 11-02 Basophils (Bld) [#/Vol] 0.07 10*3/uL [facility] Basophils/100 WBC (Bld) 0.5 % [facility] Eosinophils (Bld) [#/Vol] 0.09 10*3/uL [facility] Eosinophils/100 WBC (Bld) 0.6 % [facility] Erythrocyte distribution width (RBC) [Entitic vol] 14.3 % 11.6 - 14.8 % [facility] alth Hematocrit (Bld) [Volume fraction] 33.6 % Low 41.0 - 53.0 % [facility] Hemoglobin (Bld) [Mass/Vol] 10.8 g/dL Low 13.5 - 17.5 g/dL [facility] Immature granulocytes (Bld) [#/Vol] 0.05 10*3/uL [facility] Immature granulocytes/100 WBC (Bld) 0.40 % [facility] Interpretation and review of laboratory results Abnormal [facility] Lymphocytes (Bld) [#/Vol] 2.69 10*3/uL [facility] Lymphocytes/100 WBC (Bld) 18.9 % [facility] MCH (RBC) [Entitic mass] 30.4 pg 26. 0 - 34.0 pg [facility] MCHC (RBC) [Mass/Vol] 32.1 g/dL 31.0 - 37.0 g/dL [facility] MCV (RBC) [Entitic vol] 94.6 fL 80.0 - 100.0 fL [facility] Monocytes (Bld) [#/Vol] 1.26 10*3/uL High [facility] Monocytes/100 WBC (Bld) 8.9 % [facility] Neutrophils (Bld) [#/Vol] 10.06 10*3/uL High [facility] Neutrophils/100 WBC (Bld) 70.7 % [facility] Nucleated RBC (Bld) [#/Vol] 0.00 10*3/uL [facility] Nucleated RBC/100 WBC (Bld) [Ratio] 0.0 % [facility] Platelet mean volume (Bld) [Entitic vol] 11.9 fL 9.4 - 12.4 fL [facility] Platelets (Bld) [#/Vol] 151 10*3/uL [facility] RBC (Bld) [#/Vol] 3.55 10*6/uL Low [facility] ealth WBC (Bld) [#/Vol] 14.22 10*3/uL [facility] CRP [Mass/Vol]on 11-28-2023 Interpretation and review of laboratory results Abnormal [facility] CRP, Inflammationon 11-28-19 CRP [Mass/Vol] 11.6 mg/L [facility]L [facility] D-Dimer, Quantitativeon 11-02 Fibrin D-dimer FEU (PPP) [Mass/Vol] 1.32 High [facility] Interpretation and review of laboratory results Abnormal [facility] Glucose (Bld) [Mass/Vol]on 0 11-28-2023 Glucose [Mass/Vol] 222 mg/dL High 65 - 99 mg/dL [facility] Interpretation and review of laboratory results Abnormal [facility] Glucose [Mass/Vol] 182 mg/dL High 65 - 99 mg/dL [facility] Interpretation and review of laboratory results Abnormal [facility] Glucose [Mass/Vol] 286 mg/dL High 65 - 99 mg/dL [facility] Interpretation and review of laboratory results Abnormal [facility] Glucose [Mass/Vol] 209 mg/dL High 65 - 99 mg/dL [facility] Interpretation and review of laboratory results Abnormal [facility] Glucose [Mass/Vol] 167 mg/dL High 65 - 99 mg/dL [facility] Interpretation and review of laboratory results Abnormal [facility] LDHon 11-28-2023 LDH Lactate to pyruvate reaction [Catalytic activity/Vol] 299 U/L High 100 - 250 U/L [facility] Magnesium Levelon 11-28-2023 Magnesium [Mass/Vol] 2.5 mg/dL High 1.6 - 2 .4 mg/dL [facility] Magnesium [Mass/Vol] 2.6 mg/dL High 1.6 - 2 .4 mg/dL [facility] Magnesium [Mass/Vol] 2.2 mg/dL 1.6 - 2 .4 mg/dL [facility] Magnesium [Mass/Vol]on 11-28 Interpretation and review of laboratory results Abnormal [facility] Interpretation and review of laboratory results Abnormal [facility] Interpretation and review of laboratory results Normal [facility] No Panel Informationon 11-28 Interpretation and review of laboratory results Abnormal [facility] Phosphate [Mass/Vol]on 11-28 Interpretation and review of laboratory results Normal [facility] Interpretation and review of laboratory results Abnormal [facility] Interpretation and review of laboratory results Abnormal [facility] Phosphoruson 11-28-2023 Phosphate [Mass/Vol] 3.6 mg/dL 2.3 - 3 .7 mg/dL [facility] Phosphate [Mass/Vol] 3.8 mg/dL High 2.3 - 3 .7 mg/dL [facility] Phosphate [Mass/Vol] 3.8 mg/dL High 2.3 - 3 .7 mg/dL [facility] aPTT Coag (Bld) [Time]on Interpretation and review of laboratory results Abnormal [facility] APTTOrdered By: Becky Mercado on 11-27-2023 aPTT Coag (Bld) [Time] 78 s High [facility] APTTOrdered By: Anjali Hartmann on 11-27-2023 aPTT Coag (Bld) [Time] 66 s High [facility] APTT Heparin CoverageOrdered By: Yesenia Cardona on 11-27-2023 aPTT Coag (Bld) [Time] 87 s High [facility] Interpretation and review of laboratory results Abnormal [facility] Basic metabolic 2000 panelon 11-27-2023 Anion gap [Moles/Vol] 9 mmol/L Low 10 - 2 0 mmol/L [facility] Calcium [Mass/Vol] 8.7 mg/dL 8.4 - 10. 2 mg/dL [facility] Chloride [Moles/Vol] 113 mmol/L High 98 - 10 8 mmol/L [facility] Creatinine [Mass/Vol] 2.24 mg/dL High 0.80 - 1.30 mg/dL [facility] GFR/1.73 sq M.predicted CKD-EPI (S/P/Bld) [Vol rate/Area] 29 Low - PINF [facility] Glucose [Mass/Vol] 168 mg/dL High 65 - 99 mg/dL [facility] HCO3 [Moles/Vol] 25 mmol/L 21 - 32 mmol/L [facility] Interpretation and review of laboratory results Abnormal [facility] Potassium [Moles/Vol] 3.7 mmol/L 3.5 - 5.1 mmol/L [facility] Sodium [Moles/Vol] 143 mmol/L 135 - 145 mmol/L [facility] Urea nitrogen [Mass/Vol] 37 mg/dL High 8 - 25 mg/d L [facility] Urea nitrogen/Creatinine [Mass ratio] 16.5 mg/mg 10.0 - 20.0 [facility] Anion gap [Moles/Vol] 9 mmol/L Low 10 - 2 0 mmol/L [facility] Calcium [Mass/Vol] 9.0 mg/dL 8.4 - 10. 2 mg/dL [facility] Chloride [Moles/Vol] 113 mmol/L High 98 - 10 8 mmol/L [facility] Creatinine [Mass/Vol] 2.24 mg/dL High 0.80 - 1.30 mg/dL [facility] GFR/1.73 sq M.predicted CKD-EPI (S/P/Bld) [Vol rate/Area] 29 Low - PINF [facility] Glucose [Mass/Vol] 153 mg/dL High 65 - 99 mg/dL [facility] HCO3 [Moles/Vol] 24 mmol/L 21 - 32 mmol/L [facility] Interpretation and review of laboratory results Abnormal [facility] Potassium [Moles/Vol] 4.0 mmol/L 3.5 - 5.1 mmol/L [facility] Sodium [Moles/Vol] 142 mmol/L 135 - 145 mmol/L [facility] Urea nitrogen [Mass/Vol] 39 mg/dL High 8 - 25 mg/d L [facility] Urea nitrogen/Creatinine [Mass ratio] 17.4 mg/mg 10.0 - 20.0 [facility] Anion gap [Moles/Vol] 13 mmol/L 10 - 2 0 mmol/L [facility] Calcium [Mass/Vol] 9.3 mg/dL 8.4 - 10. 2 mg/dL [facility] Chloride [Moles/Vol] 112 mmol/L High 98 - 10 8 mmol/L [facility] Creatinine [Mass/Vol] 2.26 mg/dL High 0.80 - 1.30 mg/dL [facility] GFR/1.73 sq M.predicted CKD-EPI (S/P/Bld) [Vol rate/Area] 29 Low - PINF [facility] Glucose [Mass/Vol] 114 mg/dL High 65 - 99 mg/dL [facility] HCO3 [Moles/Vol] 23 mmol/L 21 - 32 mmol/L [facility] Interpretation and review of laboratory results Abnormal [facility] Potassium [Moles/Vol] 3.7 mmol/L 3.5 - 5.1 mmol/L [facility] Sodium [Moles/Vol] 144 mmol/L 135 - 145 mmol/L [facility] Urea nitrogen [Mass/Vol] 42 mg/dL High 8 - 25 mg/d L [facility] Urea nitrogen/Creatinine [Mass ratio] 18.6 mg/mg 10.0 - 20.0 [facility] Anion gap [Moles/Vol] 13 mmol/L 10 - 2 0 mmol/L [facility] Calcium [Mass/Vol] 9.2 mg/dL 8.4 - 10. 2 mg/dL [facility] Chloride [Moles/Vol] 111 mmol/L High 98 - 10 8 mmol/L [facility] Creatinine [Mass/Vol] 2.35 mg/dL High 0.80 - 1.30 mg/dL [facility] GFR/1.73 sq M.predicted CKD-EPI (S/P/Bld) [Vol rate/Area] 27 Low - PINF [facility] Glucose [Mass/Vol] 340 mg/dL High 65 - 99 mg/dL [facility] HCO3 [Moles/Vol] 21 mmol/L 21 - 32 mmol/L [facility] Interpretation and review of laboratory results Abnormal [facility] Potassium [Moles/Vol] 3.4 mmol/L Low 3.5 - 5.1 mmol/L [facility] Sodium [Moles/Vol] 142 mmol/L 135 - 145 mmol/L [facility] Urea nitrogen [Mass/Vol] 42 mg/dL High 8 - 25 mg/d L [facility] Urea nitrogen/Creatinine [Mass ratio] 17.9 mg/mg 10.0 - 20.0 [facility] Basic metabolic 2000 panelOr dered By: Moody Hughes on 11-27-2023 Anion gap [Moles/Vol] 13 mmol/L 10 - 2 0 mmol/L [facility] Calcium [Mass/Vol] 8.9 mg/dL 8.4 - 10. 2 mg/dL [facility] Chloride [Moles/Vol] 107 mmol/L 98 - 10 8 mmol/L [facility] Creatinine [Mass/Vol] 2.24 mg/dL High 0.80 - 1.30 mg/dL [facility] GFR/1.73 sq M.predicted CKD-EPI (S/P/Bld) [Vol rate/Area] 29 Low - PINF [facility] Glucose [Mass/Vol] 523 mg/dL Critically high 65 - 99 mg/d L [facility] HCO3 [Moles/Vol] 21 mmol/L 21 - 32 mmol/L [facility] Interpretation and review of laboratory results Abnormal [facility] Potassium [Moles/Vol] 4.6 mmol/L 3.5 - 5.1 mmol/L [facility] Sodium [Moles/Vol] 136 mmol/L 135 - 145 mmol/L [facility] Urea nitrogen [Mass/Vol] 42 mg/dL High 8 - 25 mg/d L [facility] Urea nitrogen/Creatinine [Mass ratio] 18.8 mg/mg 10.0 - 20.0 [facility] Beta hydroxybutyrate [Moles/ Vol]on 11-27-2023 Interpretation and review of laboratory results Normal [facility] Interpretation and review of laboratory results Normal [facility] Interpretation and review of laboratory results Normal [facility] Interpretation and review of laboratory results Normal [facility] Beta-Hydroxybutyrateon 11-27 Beta hydroxybutyrate [Moles/Vol] mmol/L 0.0 - 0.3 mmol/L [facility] Beta hydroxybutyrate [Moles/Vol] 0.2 mmol/L 0.0 - 0.3 mmol/L [facility] Beta hydroxybutyrate [Moles/Vol] mmol/L 0.0 - 0.3 mmol/L [facility] Beta hydroxybutyrate [Moles/Vol] 0.2 mmol/L 0.0 - 0.3 mmol/L [facility] Beta hydroxybutyrate [Moles/Vol] 1.9 mmol/L High 0.0 - 0.3 mmol/L [facility] CBC Auto Differentialon 11-02 Basophils (Bld) [#/Vol] 0.04 10*3/uL [facility] Basophils/100 WBC (Bld) 0.2 % [facility] Eosinophils (Bld) [#/Vol] 0.00 10*3/uL [facility] Eosinophils/100 WBC (Bld) 0.0 % [facility] Erythrocyte distribution width (RBC) [Entitic vol] 14.0 % 11.6 - 14.8 % [facility] alth Hematocrit (Bld) [Volume fraction] 34.0 % Low 41.0 - 53.0 % [facility] Hemoglobin (Bld) [Mass/Vol] 11.1 g/dL Low 13.5 - 17.5 g/dL [facility] Immature granulocytes (Bld) [#/Vol] 0.11 10*3/uL [facility] Immature granulocytes/100 WBC (Bld) 0.50 % [facility] Interpretation and review of laboratory results Abnormal [facility] Lymphocytes (Bld) [#/Vol] 0.91 10*3/uL [facility] Lymphocytes/100 WBC (Bld) 3.8 % [facility] MCH (RBC) [Entitic mass] 30.9 pg 26. 0 - 34.0 pg [facility] MCHC (RBC) [Mass/Vol] 32.6 g/dL 31.0 - 37.0 g/dL [facility] MCV (RBC) [Entitic vol] 94.7 fL 80.0 - 100.0 fL [facility] Monocytes (Bld) [#/Vol] 1.21 10*3/uL High [facility] Monocytes/100 WBC (Bld) 5.1 % [facility] Neut[facility] [#/Vol] 21.42 10*3/uL High [facility] Neutrophils/100 WBC (Bld) 90.4 % [facility] Nucleated RBC (Bld) [#/Vol] 0.00 10*3/uL [facility] Nucleated RBC/100 WBC (Bld) [Ratio] 0.0 % [facility] Platelet mean volume (Bld) [Entitic vol] 11.9 fL 9.4 - 12.4 fL [facility] Platelets (Bld) [#/Vol] 220 10*3/uL [facility] RBC (Bld) [#/Vol] 3.59 10*6/uL Low [facility]alth WBC (Bld) [#/Vol] 23.69 10*3/uL [facility] CRP [Mass/Vol]on 11-27-2023 Interpretation and review of laboratory results Normal [facility] CRP, Inflammationon 11-27-19 24 CRP [Mass/Vol] mg/L NINF - 10.0 mg/L [facility] Clostridium difficile Testin gOrdered By: Nina Martinez on 11-27-2023 C. difficile Interpretation Negative [facility] Specimen Acceptability Acceptable [facility] ESR Westergren method (Bld) [Velocity]on 11-27-2023 ESR (Bld) [Velocity] 21 mm/h [facility] Interpretation and review of laboratory results Abnormal [facility] Glucose (Bld) [Mass/Vol]on 0 11-27-2023 Glucose [Mass/Vol] 85 mg/dL 65 - 99 mg/dL [facility] Interpretation and review of laboratory results Normal [facility] Glucose [Mass/Vol] 106 mg/dL High 65 - 99 mg/dL [facility] Interpretation and review of laboratory results Abnormal [facility] Glucose [Mass/Vol] 179 mg/dL High 65 - 99 mg/dL [facility] Interpretation and review of laboratory results Abnormal [facility] Glucose [Mass/Vol] 255 mg/dL High 65 - 99 mg/dL [facility] Interpretation and review of laboratory results Abnormal [facility] Glucose [Mass/Vol] 252 mg/dL High 65 - 99 [facility] Interpretation and review of laboratory results Abnormal [facility] Glucose [Mass/Vol] 145 mg/dL High 65 - 99 mg/dL [facility] Interpretation and review of laboratory results Abnormal [facility] Glucose [Mass/Vol] 155 mg/dL High 65 - 99 mg/dL [facility] Interpretation and review of laboratory results Abnormal [facility] Glucose [Mass/Vol] 155 mg/dL High 65 - 99 mg/dL [facility] Interpretation and review of laboratory results Abnormal [facility] Glucose [Mass/Vol] 143 mg/dL High 65 - 99 mg/dL [facility] Interpretation and review of laboratory results Abnormal [facility] Glucose [Mass/Vol] 123 mg/dL High 65 - 99 mg/dL [facility] Interpretation and review of laboratory results Abnormal [facility] Glucose [Mass/Vol] 132 mg/dL High 65 - 99 mg/dL [facility] Interpretation and review of laboratory results Abnormal [facility] Glucose [Mass/Vol] 202 mg/dL High 65 - 99 mg/dL [facility] Interpretation and review of laboratory results Abnormal [facility] Glucose [Mass/Vol] 318 mg/dL High 65 - 99 mg/dL [facility] Interpretation and review of laboratory results Abnormal [facility] Glucose [Mass/Vol] 365 mg/dL High 65 - 99 mg/dL [facility] Interpretation and review of laboratory results Abnormal [facility] Glucose [Mass/Vol] 453 mg/dL Critically high 65 - 99 mg/d L [facility] Interpretation and review of laboratory results Abnormal [facility] Glucose [Mass/Vol] mg/dL Critically high 65 - 99 mg/d L [facility] Interpretation and review of laboratory results Abnormal [facility] Glucose [Mass/Vol] mg/dL Critically high 65 - 99 mg/d L [facility] Interpretation and review of laboratory results Abnormal [facility] Glucose [Mass/Vol] 498 mg/dL Critically high 65 - 99 mg/d L [facility] Interpretation and review of laboratory results Abnormal [facility] [place] Magenn 11-27-2023 Extra Tube Hold for add-ons. [facility] Comment on above: Auto resulted. [facility] HbA1c (Bld) [Mass fraction]O rdered By: Brent Carrillo on 11-27-2023 Average glucose Estimated from glycated hemoglobin (Bld) [Mass/Vol] 169 mg/dL High 68 - 114 mg/dL [facility] Interpretation and review of laboratory results Abnormal [facility] Hemoglobin [id number] By: Damaris Carrillo on 11-27-2023 HbA1c (Bld) [Mass fraction] 7.5 % High 4.0 - 5.6 % [facility] Hepatic function 2000 panelo n 11-27-2023 Albumin [Mass/Vol] 3.4 g/dL 3.2 - 5.2 g/dL [facility] ALP [Catalytic activity/Vol] 97 U/L 40 - 150 U/L [facility] ALT [Catalytic activity/Vol] 47 U/L 14 - 65 U/L [facility] AST [Catalytic activity/Vol] 74 U/L High 0-50 U/L [facility] Bilirubin [Mass/Vol] 0.7 mg/dL 0.0 - 1 .3 mg/dL [facility] Bilirubin.conjugated [Mass/Vol] 0.2 mg/dL 0.0 - 0.4 mg/dL [facility] Protein [Mass/Vol] 6.3 g/dL 6.0 - 8.0 g/dL [facility] Influenza virus A and B RNA and SARS-CoV-2 (COVID-19) N gene panel ALICE+probe (Resp)Ordered By: Esthela Albright on 11-27-2023 FLUAV RNA ALICE+probe Ql (Unsp spec) Not detected Not Detected [facility] FLUBV RNA ALICE+probe Ql (Unsp spec) Not detected Not Detected [facility] Interpretation and review of laboratory results Abnormal [facility] SARS-CoV-2 (COVID-19) RNA ALICE+probe Ql (Resp) Detected Abnormal Not Detected [facility] Lactate [Moles/Vol]on 2023 Interpretation and review of laboratory results Abnormal [facility] Interpretation and review of laboratory results Normal [facility] Lactic Acid, Plasmaon 2023 Lactate [Moles/Vol] 2.8 mmol/L High 0.6 - 2. 0 mmol/L [facility] Lactate [Moles/Vol] 2.0 mmol/L 0.6 - 2. 0 mmol/L [facility] Legionella Antigen, Urineon 11-27-2023 Interpretation and review of laboratory results Normal [facility] L. pneumophila Ag Ql (U) Negative Neg ative for Legionella antigen [facility] Lipid 1996 panelon Cholesterol [Mass/Vol] 130 mg/dL 100 - 199 mg/dL [facility] Cholesterol in HDL [Mass/Vol] 56 mg/dL 40 - 59 mg/dL [facility] Cholesterol in LDL [Mass/Vol] 61 mg/dL 10 - 130 mg/dL [facility] Cholesterol non HDL [Mass/Vol] 74 mg/dL [facility] Cholesterol.total/Cholest santos in HDL [Mass ratio] 2.3 {ratio} ratio [facility] Triglyceride [Mass/Vol] 67 mg/dL 30 - 150 mg/dL [facility] MRSA DNA Amplified Probeon 0 11-27-2023 MRSA DNA ALICE+probe Ql (Unsp spec) Negative Not Detected, MRSA NEGATIVE [facility] MRSA DNA ALICE+probe Ql (Unsp spec)on 11-27-2023 Interpretation and review of laboratory results Normal [facility] Magnesium Levelon 11-27-2023 Magnesium [Mass/Vol] 1.9 mg/dL 1.6 - 2 .4 mg/dL [facility] Magnesium [Mass/Vol] 2.2 mg/dL 1.6 - 2 .4 mg/dL [facility] Magnesium [Mass/Vol] 2.1 mg/dL 1.6 - 2 .4 mg/dL [facility] Magnesium [Mass/Vol] 2.1 mg/dL 1.6 - 2 .4 mg/dL [facility] Magnesium [Mass/Vol] 2.2 mg/dL 1.6 - 2 .4 mg/dL [facility] Magnesium [Mass/Vol]on 11-27 Interpretation and review of laboratory results Normal [facility] Interpretation and review of laboratory results Normal [facility] Interpretation and review of laboratory results Normal [facility] Interpretation and review of laboratory results Normal [facility] Interpretation and review of laboratory results Normal [facility] NT Pro BNPon 11-27-2023 Natriuretic peptide.B prohormone N-Terminal [Mass/Vol] 69573 pg/mL High 0 - 300 pg/mL [facility] Natriuretic peptide.B prohor katja N-Terminal [Mass/Vol]on 11-27-2023 Interpretation and review of laboratory results Abnormal [facility] No Panel Informationon 11-27 [facility] Interpretation and review of laboratory results Abnormal [facility] Obtain venous blood gases an d performon 11-27-2023 [facility] POC Arterial Blood Gas Panel -Pulmon 11-27-2023 Alveolar-arterial oxygen Partial pressure difference 85.4 mm Hg [facility] Base excess Calc (Bld) [Moles/Vol] -7.1000 mmol/L Low -2.0 - 2.0 [facility] Calcium.ionized [Mass/Vol] 4.7 mg/dL 4.5 - 5.3 mg/dL [facility] Carboxyhemoglobin (BldA) [Mass fraction] 1.3 NINF [facility] Chloride [Moles/Vol] 107 mmol/L 98 - 10 8 mmol/L [facility] CO2 (Bld) [Partial pressure] 31.7 mm[Hg] Low [facility] Glucose post fast [Mass/Vol] 543 mg/dL Critically high 65 - 99 mg/dL [facility] HCO3 (Bld) [Moles/Vol] 17.5 mmol/L Low 22.0 - 26.0 mmol/L [facility] Hematocrit (BldA) [Volume fraction] 37.9 % Low 41.0 - 53.0 % [facility] Hemoglobin (Bld) [Mass/Vol] 12.4 g/dL Low 13.5 - 17.5 g/dL [facility] Inhaled oxygen concentration 30 % [facility] Interpretation and review of laboratory results Abnormal [facility] [facility] Lactate [Moles/Vol] 1.7 mmol/L 0.6 - 2. 0 mmol/L [facility] Methemoglobin (BldA) [Mass fraction] % 0.0 - 2.0 % [facility] Oxygen (Bld) [Partial pressure] 84 mm[Hg] [facility] Oxyhemoglobin (BldA) [Mass fraction] 94.5 % 94.0 - 98.0 % [facility] pH (Bld) 7.35 [pH] 7.35 - 7.45 [facility] Potassium [Moles/Vol] 4.6 mmol/L 3.5 - 5.1 mmol/L [facility] Sodium [Moles/Vol] 138 mmol/L 135 - 145 mmol/L [facility] Specimen source Nom (Unsp spec) Radial, right [facility] POC Venous Blood Gas Panel-P ulmon 11-27-2023 Base excess Calc (BldV) [Moles/Vol] -8.4000 mmol/L Low -2.0 - 2.0 [facility] Calcium.ionized [Mass/Vol] 4.4 mg/dL Low 4.5 - 5.3 mg/dL [facility] Carboxyhemoglobin (BldA) [Mass fraction] 2.9 High [facility] Chloride [Moles/Vol] 108 mmol/L 98 - 10 8 mmol/L [facility] CO2 (BldV) [Partial pressure] 26.6 mm[Hg] Low [facility] Glucose post fast [Mass/Vol] 544 mg/dL Critically high 65 - 99 mg/dL [facility] HCO3 (Bld) [Moles/Vol] 15.4 mmol/L Low 24.0 - 28.0 mmol/L [facility] Hematocrit (BldA) [Volume fraction] 36.5 % Low 41.0 - 53.0 % [facility] Hemoglobin (Bld) [Mass/Vol] 11.9 g/dL Low 13.5 - 17.5 g/dL [facility] Inhaled oxygen concentration 30 % [facility] Interpretation and review of laboratory results Abnormal [facility] Lactate [Moles/Vol] 2.5 mmol/L High 0.6 - 2. 0 mmol/L [facility] Methemoglobin (BldA) [Mass fraction] % 0.0 - 2.0 % [facility] Oxygen (BldV) [Partial pressure] 140 mm[Hg] High [facility] Oxygen saturation in Venous blood 99.4 % High 40.0 - 70.0 % [facility] Oxyhemoglobin (BldA) [Mass fraction] 96.3 % No established reference range [facility] pH (BldV) 7.37 [pH] 7.32 - 7.42 [facility] Potassium [Moles/Vol] 4.0 mmol/L 3.5 - 5.1 mmol/L [facility] Sodium [Moles/Vol] 138 mmol/L 135 - 145 mmol/L [facility] Specimen source Nom (Unsp spec) Not specified [facility] Base excess Calc (BldV) [Moles/Vol] -5.8000 mmol/L Low -2.0 - 2.0 [facility] Calcium.ionized [Mass/Vol] 4.7 mg/dL 4.5 - 5.3 mg/dL [facility] Carboxyhemoglobin (BldA) [Mass fraction] 2.9 High [facility] Chloride [Moles/Vol] 107 mmol/L 98 - 10 8 mmol/L [facility] CO2 (BldV) [Partial pressure] 34.1 mm[Hg] Low [facility] Glucose post fast [Mass/Vol] 493 mg/dL Critically high 65 - 99 mg/dL [facility] HCO3 (Bld) [Moles/Vol] 19.0 mmol/L Low 24.0 - 28.0 mmol/L [facility] Hematocrit (BldA) [Volume fraction] 35.4 % Low 41.0 - 53.0 % [facility] Hemoglobin (Bld) [Mass/Vol] 11.5 g/dL Low 13.5 - 17.5 g/dL [facility] Inhaled oxygen concentration 28 % [facility] Inhaled oxygen flow rate 2 L/min [facility] Interpretation and review of laboratory results Abnormal [facility] Lactate [Moles/Vol] 1.8 mmol/L 0.6 - 2. 0 mmol/L [facility] Methemoglobin (BldA) [Mass fraction] % 0.0 - 2.0 % [facility] Oxygen (BldV) [Partial pressure] 63 mm[Hg] High [facility] Oxygen saturation in Venous blood 91.7 % High 40.0 - 70.0 % [facility] Oxyhemoglobin (BldA) [Mass fraction] 88.7 % No established reference range [facility] pH (BldV) 7.36 [pH] 7.32 - 7.42 [facility] Potassium [Moles/Vol] 4.7 mmol/L 3.5 - 5.1 mmol/L [facility] Sodium [Moles/Vol] 138 mmol/L 135 - 145 mmol/L [facility] Specimen source Nom (Unsp spec) Not specified [facility] Phosphate [Mass/Vol]on 11-27 Interpretation and review of laboratory results Normal [facility] Interpretation and review of laboratory results Abnormal [facility] Interpretation and review of laboratory results Normal [facility] Interpretation and review of laboratory results Normal [facility] Interpretation and review of laboratory results Abnormal [facility] Phosphoruson 11-27-2023 Phosphate [Mass/Vol] 2.6 mg/dL 2.3 - 3 .7 mg/dL [facility] Phosphate [Mass/Vol] 4.1 mg/dL High 2.3 - 3 .7 mg/dL [facility] Phosphate [Mass/Vol] 3.0 mg/dL 2.3 - 3 .7 mg/dL [facility] Phosphate [Mass/Vol] 2.3 mg/dL 2.3 - 3 .7 mg/dL [facility] Phosphate [Mass/Vol] 4.1 mg/dL High 2.3 - 3 .7 mg/dL [facility] Reflex Lactic Acid, Plasmaon 11-27-2023 Interpretation and review of laboratory results Normal [facility] Lactate [Moles/Vol] 2.0 mmol/L 0.6 - 2. 0 mmol/L [facility] Interpretation and review of laboratory results Abnormal [facility] Lactate [Moles/Vol] 2.8 mmol/L High 0.6 - 2. 0 mmol/L [facility] Respiratory pathogens DNA an d RNA panel ALICE+non-probe (Nph)Ordered By: Melania Freeman on 11-27-2023 Adenovirus DNA ALICE+non-probe Ql (Nph) Not detected Not Detected [facility] B. parapertussis [id number] DNA ALICE+non-probe Ql (Nph) Not detected Not Detected [facility] B. pertussis toxin promoter region ALICE+non-probe Ql (Nph) Not detected Not Detected [facility] C. pneumoniae DNA ALICE+non-probe Ql (Nph) Not detected Not Detected [facility] FLUAV RNA ALICE+non-probe Ql (Nph) Not detected Not Detected [facility] FLUBV RNA ALICE+non-probe Ql (Nph) Not detected Not Detected [facility] HCoV 229E RNA ALICE+non-probe Ql (Nph) Not detected Not Detected [facility] HCoV HKU1 RNA ALICE+non-probe Ql (Nph) Not detected Not Detected [facility] HCoV NL63 RNA ALICE+non-probe Ql (Nph) Not detected Not Detected [facility] HCoV OC43 RNA ALICE+non-probe Ql (Nph) Not detected Not Detected [facility] hMPV RNA ALICE+non-probe Ql (Nph) Not detected Not Detected [facility] Interpretation and review of laboratory results Normal [facility] M. pneumoniae DNA ALICE+non-probe Ql (Nph) Not detected Not Detected [facility] Parainfluenza virus 1 RNA ALICE+non-probe Ql (Nph) Not detected Not Detected [facility] Parainfluenza virus 2 RNA ALICE+non-probe Ql (Nph) Not detected Not Detected [facility] Parainfluenza virus 3 RNA ALICE+non-probe Ql (Nph) Not detected Not Detected [facility] Parainfluenza virus 4 RNA ALICE+non-probe Ql (Nph) Not detected Not Detected [facility] Rhinovirus+Enterovirus RNA ALICE+non-probe Ql (Nph) Not detected Not Detected [facility] RSV RNA ALICE+non-probe Ql (Nph) Not detected Not Detected [facility] SARS-CoV-2 (COVID-19) RNA ALIEC+non-probe Ql (Nph) Not detected Not Detected [facility] S. pneumoniae Urine AntigenO rdered By: Maxine Hill on 11-27-2023 Interpretation and review of laboratory results Normal [facility] S. pneumoniae Ag Ql (U) Negative Pres umptive Negative for Pneumococcal pneumoniae [facility] TSH DL <= 0.005 mIU/L Qnon 0 11-27-2023 Interpretation and review of laboratory results Normal [facility] TSH Qn 0.35 m[IU]/L [facility] Tropinin I.cardiac panel Hig h sensitivity methodon 11-27-2023 Interpretation and review of laboratory results Abnormal [facility] Less than 99th percentile of normal [...] performed using a different testing methodology at [facility] than at other [facility]. Direct result comparisons should only be made within the same method. [facility] Troponin I, High Sensitivity on 11-27-2023 Tropinin I.cardiac panel High sensitivity method 6445 ng/L Critically high 0 - 20 ng/L [facility] Comment on above: Previous result zay boss on 11/26/2023 2158 on specimen/case [id number] called with component [facility] for procedure Troponin I, High Sensitivity with value 2,361 ng/L. Troponin x 2 (Now and Repeat in 3 hours)Ordered By: Stephanie Carlton on 11-27-2023 Delta % Troponin I -6 % <20% of Baseline Troponin [facility] Inter Troponin I Delta Change Probable non-acute cardiac injury or late presentation of acute injury. [facility] Interpretation and review of laboratory results Abnormal [facility] Troponin I 9349 ng/L Critically high NINF - 59 ng/L [facility] Troponin x 2 (Now and Repeat in 3 hours)on 11-27-2023 Interpretation and review of laboratory results Abnormal [facility] Troponin I 9973 ng/L Critically high NINF - 59 ng/L [facility] Troponin I Interpretation Possible acute cardiac injury. [facility] XR Chest PA and Abdomen APon 11-27-2023 GE RIS GE RIS [facility] Radiology Study observation (narrative) [facility] XR Chest PA and Abdomen APOr dered By: Malika Painting on 11-27-2023 [facility] Work Phone: aPTT Coag (Bld) [Time]Ordere d By: Becky Mercado on 11-27-2023 Interpretation and review of laboratory results Abnormal [facility] aPTT Coag (Bld) [Time]Ordere d By: Anjali Hartmann on 11-27-2023 Interpretation and review of laboratory results Abnormal [facility] CBC W Auto Differential pane l (Bld)on 11-26-2023 Basophils (Bld) [#/Vol] 0.05 10*3/uL [facility] Basophils/100 WBC (Bld) 0.2 % 0.0 - 2.0 % [facility] Eosinophils (Bld) [#/Vol] 0.00 10*3/uL [facility] Eosinophils/100 WBC (Bld) 0.0 % 0.0 - 6.0 % [facility] Erythrocyte distribution width (RBC) [Ratio] 13.8 % 11.5 - 14.5 % [facility] Hematocrit (Bld) [Volume fraction] 38.0 % Low 41.0 - 52.0 % [facility] Hemoglobin (Bld) [Mass/Vol] 12.2 g/dL Low 13.5 - 17.5 g/dL [facility] Immature granulocytes (Bld) [#/Vol] 0.12 10*3/uL [facility] Immature granulocytes/100 WBC (Bld) 0.6 % 0.0 - 0.9 % [facility] Comment on above: Immature Granulocyte Count (IG) includes promyelocytes, myelocytes and metamyelocytes but does not include bands. Percent differential counts (%) should be interpreted in the context of the absolute cell counts (cells/UL). Interpretation and review of laboratory results Abnormal [facility] Lymphocytes (Bld) [#/Vol] 2.01 10*3/uL [facility] Lymphocytes/100 WBC (Bld) 9.8 % 13.0 - 44. 0 % [facility] MCH (RBC) [Entitic mass] 30.5 pg 26. 0 - 34.0 pg [facility] MCHC (RBC) [Mass/Vol] 32.1 g/dL 32.0 - 36.0 g/dL [facility] MCV (RBC) [Entitic vol] 95 fL 80 - 100 fL [facility] Monocytes (Bld) [#/Vol] 0.75 10*3/uL [facility] Monocytes/100 WBC (Bld) 3.7 % 2.0 - 10.0 % [facility] Neutrophils (Bld) [#/Vol] 17.49 10*3/uL High [facility] Comment on above: Percent differential counts (%) should be interpreted in the context of the absolute cell counts (cells/uL). Neutrophils/100 WBC (Bld) 85.7 % 40.0 - 80. 0 % [facility] Nucleated RBC/100 WBC (Bld) [Ratio] 0.0 % [facility] Platelets (Bld) [#/Vol] 281 10*3/uL [facility] RBC (Bld) [#/Vol] 4.00 10*6/uL Low [facility] WBC (Bld) [#/Vol] 20.4 10*3/uL High [facility] Comprehensive metabolic 2000 panelon 11-26-2023 Albumin BCP dye [Mass/Vol] 4.2 g/dL 3.4 - 5.0 g/dL [facility] ALP [Catalytic activity/Vol] 101 U/L 33 - 136 U/L [facility] ALT With P-5'-P [Catalytic activity/Vol] 38 U/L 10 - 52 U/L [facility] Comment on above: Patients treated wit h Sulfasalazine may generate falsely decreased results for ALT. Anion gap [Moles/Vol] 17 mmol/L 10 - 2 0 mmol/L [facility] AST With P-5'-P [Catalytic activity/Vol] 53 U/L High 9 - 39 U/L [facility] Bilirubin [Mass/Vol] 0.6 mg/dL 0.0 - 1 .2 mg/dL [facility] Calcium [Mass/Vol] 9.2 mg/dL 8.6 - 10. 3 mg/dL [facility] Chloride [Moles/Vol] 106 mmol/L 98 - 10 7 mmol/L [facility] CO2 [Moles/Vol] 17 mmol/L Low 21 - 32 mmol/L [facility] Creatinine [Mass/Vol] 1.96 mg/dL High 0.50 - 1.30 mg/dL [facility] GFR/1.73 sq M.predicted among non-blacks MDRD (S/P/Bld) [Vol rate/Area] 34 mL/min/{1.73_m2} Low - [facility]F [facility] Comment on above: Calculations of albin mated GFR are performed using the 2020 CKD-EPI Study Refit equation without the race variable for the IDMS-Traceable creatinine methods. https://jasn.asnjournals.org/content//ASN.20 52658176 Glucose [Mass/Vol] 492 mg/dL Critically high 74 - 99 mg/d L [facility] Comment on above: Confirmed by repeat analysis Interpretation and review of laboratory results Abnormal [facility] Potassium [Moles/Vol] 4.5 mmol/L 3.5 - 5.3 mmol/L [facility] Protein [Mass/Vol] 6.7 g/dL 6.4 - 8.2 g/dL [facility] Sodium [Moles/Vol] 135 mmol/L Low 136 - 145 mmol/L [facility] Urea nitrogen [Mass/Vol] 35 mg/dL High 6 - 23 mg/d L [facility] Critical Careon 11-26-2023 Ger Bansal DO [...] discussed with: accepting provider at another facility [facility] Work Phone: [facility] Work Phone: Lactateon 11-26-2023 Lactate [Moles/Vol] 3.2 mmol/L High 0.4 - 2. 0 mmol/L [facility] Lactate [Moles/Vol] 3.8 mmol/L High 0.4 - 2. 0 mmol/L [facility] Lactate [Moles/Vol]on 2023 Interpretation and review of laboratory results Abnormal [facility] Venipuncture immediately after or during the administration of Metamizole may lead to falsely low results. Testing should be performed immediately prior to Metamizole dosing. [facility] Interpretation and review of laboratory results Abnormal [facility] Venipuncture immediately after or during the administration of Metamizole may lead to falsely low results. Testing should be performed immediately prior to Metamizole dosing. [facility] MRSA DNA ALICE+probe Ql (Nose) on 11-26-2023 Interpretation and review of laboratory results Normal [facility] MRSA DNA ALICE+probe Ql (Unsp spec) Not detected Not Detected [facility] This assay is an FDA-approved in [...] patients less than two years of age. [facility] Magnesiumon 11-26-2023 Magnesium [Mass/Vol] 2.20 mg/dL 1.60 - 2.40 mg/dL [facility] Magnesium [Mass/Vol]on 11-26 Interpretation and review of laboratory results Normal [facility] Natriuretic peptide B [Mass/ Vol]on 11-26-2023 Interpretation and review of laboratory results Abnormal [facility] Natriuretic peptide B (Bld) [Mass/Vol] 902 pg/mL High 0 - 99 pg/mL [facility] <100 pg/mL - Heart failure unlikely 100-299 pg/mL - Intermediate probability of acute heart failure exacerbation. Correlate with clinical context and patient history. >=300 pg/mL - Heart Failure likely. Correlate with clinical context and patient history. BNP testing is performed using different testing methodology at [facility] than at other [facility]. Direct result comparisons should only be made within the same method. [facility] No Panel Informationon 11-26 [facility] Interpretation and review of laboratory results Normal [facility] PT Coag (PPP) [Time]on 11-26 INR Coag (PPP) [Relative time] 1.1 {INR} 0.9 - 1.1 [facility] Protime-INRon 11-26-2023 PT Coag (PPP) [Time] 12.[address] [facility] Tropinin I.cardiac panel Hig h sensitivity methodon 11-26-2023 Interpretation and review of laboratory results Abnormal [facility] Less than 99th percentile of normal [...] performed using a different testing methodology at [facility] than at other [facility]. Direct result comparisons should only be made within the same method. [facility] Interpretation and review of laboratory results Abnormal [facility] Less than 99th percentile of normal [...] performed using a different testing methodology at [facility] than at other [facility]. Direct result comparisons should only be made within the same method. [facility] Troponin I, High Sensitivity on 11-26-2023 Tropinin I.cardiac panel High sensitivity method 3473 ng/L Critically high 0 - 20 ng/L [facility] Comment on above: Previous result veri fied on 11/26/2023 2158 on specimen/case [id number] called with component [facility] for procedure Troponin I, High Sensitivity with value 2,361 ng/L. Tropinin I.cardiac panel High sensitivity method 2361 ng/L Critically high 0 - 20 ng/L [facility] XR Chest Single viewon 11-26 Pulmonary vascular congestive change and edema and small bilateral pleural effusions. There is asymmetric opacity in the right lower lung concerning for superimposed pneumonia. 10 mm nodular opacity at the left lung base; follow-up dedicated CT chest is recommended to exclude underlying pulmonary nodule. MACRO: None Signed by: Ghassan Tovar 11/26/2023 10:02 PM Dictation workstation: [id number] MMODAL Interpreted By: Ghassan Tovar, STUDY: XR CHEST 1 VIEW; 11/26/2023 9:31 pm INDICATION: Signs/Symptoms:dyspn ea. COMPARISON: 10/13/2023 ACCESSION NUMBER(S): [id number] ORDERING CLINICIAN: GER BANSAL FINDINGS: The cardiac silhouette is stable in size. There is pulmonary vascular congestive change and edema. Small bilateral pleural effusions. There is 10 mm nodular opacity at the left lung base. No pneumothorax MMODAL Ghassan Tovar MD - 11/26/2023 Interpreted By: Ghassan Tovar, STUDY: XR CHEST 1 VIEW; 11/26/2023 9:31 pm INDICATION: Signs/Symptoms:dyspn ea. COMPARISON: 10/13/2023 ACCESSION NUMBER(S): [id number] ORDERING CLINICIAN: GER BANSAL FINDINGS: The cardiac [...] Ghassan Tovar 11/26/2023 10:02 PM Dictation workstation: [id number] [facility] Work Phone: Radiology Study observation (narrative) [facility] Work Phone: XR Chest Single viewOrdered By: Ghassan Tovar on 11-26-2023 [facility] Work Phone: aPTTon 11-26-2023 aPTT Coag (PPP) [Time] 38 s Un [facility] aPTT Coag (PPP) [Time]on The APTT is no longer used for monitoring Unfractionated Heparin Therapy. For monitoring Heparin Therapy, use the Heparin Assay. [facility] Absolute lymphocyte countOrd ered By: Ryley Jeter on 11-25-2023 Lymphocytes Auto (Unsp spec) [#/Vol] 1.79 10*3/uL 0.83-4.51 [facility] Automated lymphocyte count a s percentage of total leukocytesOrdered By: Ryley Gordilloke on 11-25-2023 Lymphocytes/100 WBC Auto (Unsp spec) 19.7 % 19-41 [facility] Basophil percentageOrdered B y: Ryley Steffany on 11-25-2023 Basophils/100 WBC (Bld) 1.0 % 0-1 [facility] Bilirubin [Mass/Vol] 0.50 mg/dL 0.20-1.00 [facility] Comment on above: For patients on eltr ombopag therapy, use of Dimension [place] TBIL is not recommended. Chloride [Moles/Vol] 113 mmol/L 98-107 [facility] Eosinophils/100 WBC (Bld) 2.3 % 0-5 [facility] Glucose [Mass/Vol] 130 mg/dL 74-106 [facility] Comment on above: Fasting Glucose resu lt greater than or equal to 126 mg/dL suggests DIABETES MELLITUS per A.D.A. criteria. Hemoglobin (Bld) [Mass/Vol] 12.2 g/dL 13.0-16.5 [facility] Monocytes/100 WBC (Bld) 7.5 % 0-10 [facility] Neutrophils (Bld) [#/Vol] 6.3 10*3/uL 2.0-7.7 [facility] Neutrophils/100 WBC (Bld) 69.2 % 47-70 [facility] Potassium [Moles/Vol] 4.3 mmol/L 3.5-5.1 [facility] Protein [Mass/Vol] 7.1 g/dL 6.4-8.2 [facility] Sodium [Moles/Vol] 142 mmol/L 136-145 [facility] WBC (Bld) [#/Vol] 9.1 10*3/uL 4.4-11.0 [facility] Determination of erythrocyte mean corpuscular volume (MCV)Ordered By: Ryley Jeter on 11-25-2023 MCV (RBC) [Entitic vol] 93.5 fL 80-94 [facility] Erythrocyte distribution wid th ratioOrdered By: Ryley Steffany on 11-25-2023 Erythrocyte distribution width (RBC) [Ratio] 14.1 % 11.6-14.6 [facility] Erythrocyte distribution wid th standard deviationOrdered By: Ryley Steffany on 11-25-2023 Erythrocyte distribution width (RBC) [Entitic vol] 47.9 fL 35.1-43.9 [facility] Hematocrit Auto (Bld) [Volum e fraction][facility] on 11-25-2023 Hematocrit (Bld) [Volume fraction] 37.7 % 40-54 [facility] Immature granulocytes/100 WB C Auto (Bld)Ordered By: [facility] on 11-25-2023 Immature granulocytes/100 WBC (Bld) 0.300 % 0.0-0.9 [facility] Comment on above: IG% - Immature Granu locytes (promyelocytes, myelocytes and metamyelocytes) > 1% indicates that a LEFT SHIFT is Present. Laboratory - Chemistry and C hemistry - challengeOrdered By: Ryley Steffany on 11-25-2023 Albumin/Globulin [Mass ratio] 1.0 {ratio} 0.9-2.4 [facility] ALP [Catalytic activity/Vol] 98 U/L 45-117 [facility] ALT [Catalytic activity/Vol] 25 U/L 16-61 [facility] CO2 [Moles/Vol] 25.0 mmol/L 21.0-32.0 [facility] Globulin (S) [Mass/Vol] 3.5 g/dL 2.2-4.2 [facility] Urea nitrogen/Creatinine [Mass ratio] 13.5 mg/mg 10-20 [facility] Laboratory - Hematology and Cell countsOrdered By: [facility] J[facility] on 11-25-2023 MCH (RBC) [Entitic mass] 30.3 pg 27.0-32.0 [facility] MCHC (RBC) [Mass/Vol] 32.4 g/dL 32-36 [facility] Nucleated RBC/100 WBC (Bld) [Ratio] 0 % 0-5 [facility] Platelets (Bld) [#/Vol] 239 10*3/uL 150-450 [facility] No Panel InformationOrdered By: Ryley Jeter on 11-25-2023 Estimated GFR (MDRD) Amer 55 mL/min >60 [facility] Comment on above: GFR Calc Estimated GFR (MDRD) Non-Af Amer 46 mL/min >60 [facility] Comment on above: Non- GFR Calc Platelet mean volume Kodi-Ec ker (Bld) [Entitic vol]Ordered By: Ryley Jeter on 11-25-2023 Platelet mean volume (Bld) [Entitic vol] 11.3 fL 6.2-12.0 [facility] RBC Auto (Bld) [#/Vol]Ordere d By: Ryley Jeter on 11-25-2023 RBC (Bld) [#/Vol] 4.03 10*6/uL 4.6-6.2 [facility] Serum or plasma calcium nikkie urement (mass/volume)Ordered By: Ryley Jeter on 11-25-2023 Calcium [Mass/Vol] 9.5 mg/dL 8.5-10.1 [facility] Serum or plasma creatinine m easurement (mass/volume)Ordered By: Ryley Jeter on 11-25-2023 Creatinine [Mass/Vol] 1.56 mg/dL 0.70-1.30 [facility] Comment on above: The validity of the calculated GFR & GFRAA in patients over 70 years has not been determined. Clinical correlation is essential. Serum or plasma thyroid stim ulating hormone (TSH) measurement (units/volume)Ordered By: Ryley Jeter on 11-25-2023 TSH Qn 0.80 uIU/mL 0.358-3.74 [facility] Serum or plasma urea nitroge n measurement (mass/volume)Ordered By: Ryley Jeter on 11-25-2023 Urea nitrogen [Mass/Vol] 21 mg/dL 7-18 [facility] Thin prep Papanicolaou smear with manual screeningOrdered By: Ryley Jeter on 11-25-2023 Thin prep Papanicolaou smear with manual screening 3.6 g/dL 3.2-5.0 [facility] Thin prep Papanicolaou smear with manual screening 23 U/L 15-37 [facility] Thin prep Papanicolaou smear with manual screening 4 5-15 [facility] Basophil percentageOrdered B y: Jana Ferguson on 10-22-2023 Chloride [Moles/Vol] 111 mmol/L 98-107 [facility] Glucose [Mass/Vol] 120 mg/dL 74-106 [facility] Comment on above: Fasting Glucose resu lt from 100 to 125 mg/dL suggests IMPAIRED HOMEOSTASIS per A.D.A. criteria. Potassium [Moles/Vol] 4.7 mmol/L 3.5-5.1 [facility] Sodium [Moles/Vol] 140 mmol/L 136-145 [facility] WBC (Bld) [#/Vol] 9.1 10*3/uL 4.4-11.0 [facility] Blood erythrocytes count (nu mber/volume)Ordered By: Jana Ferguson on 10-22-2023 RBC (Bld) [#/Vol] 4.16 10*6/uL 4.6-6.2 [facility] Blood hemoglobin measurement (mass/volume)Ordered By: Jana Ferguson on 10-22-2023 Hemoglobin (Bld) [Mass/Vol] 12.3 g/dL 13.0-16.5 [facility] Blood platelet mean volumeOr dered By: Jana Ferguson on 10-22-2023 Platelet mean volume (Bld) [Entitic vol] 11.6 fL 6.2-12.0 [facility] Determination of erythrocyte mean corpuscular volume (MCV)Ordered By: Jana Ferguson on 10-22-2023 MCV (RBC) [Entitic vol] 93.0 fL 80-94 [facility] Hematocrit Auto (Bld) [Volum e fraction]Ordered By: Jana Ferguson on 10-22-2023 Hematocrit (Bld) [Volume fraction] 38.7 % 40-54 [facility] Laboratory - Chemistry and C hemistry - challengeOrdered By: Jana Ferguson on 10-22-2023 CO2 [Moles/Vol] 27.0 mmol/L 21.0-32.0 [facility] Urea nitrogen/Creatinine [Mass ratio] 20.9 mg/mg 10-20 [facility] Laboratory - Hematology and Cell countsOrdered By: Jana Ferguson on 10-22-2023 Erythrocyte distribution width (RBC) [Entitic vol] 44.3 fL 35.1-43.9 [facility] Erythrocyte distribution width (RBC) [Ratio] 13.0 % 11.6-14.6 [facility] MCH (RBC) [Entitic mass] 29.6 pg 27.0-32.0 [facility] MCHC Auto (RBC) [Mass/Vol]Or dered By: Jana Ferguson on 10-22-2023 MCHC (RBC) [Mass/Vol] 31.8 g/dL 32-36 [facility] No Panel InformationOrdered By: Jana Ferguson on 10-22-2023 Estimated GFR (MDRD) Amer 40 mL/min >60 [facility] Comment on above: GFR Calc Estimated GFR (MDRD) Non-Af Amer 33 mL/min >60 [facility] Comment on above: Non- GFR Calc Platelets bldOrdered By: Jadyn Ferguson on 10-22-2023 Platelets (Bld) [#/Vol] 304 10*3/uL 150-450 [facility] Serum or plasma calcium nikkie urement (mass/volume)Ordered By: Jana Ferguson on 10-22-2023 Calcium [Mass/Vol] 9.1 mg/dL 8.5-10.1 [facility] Serum or plasma creatinine m easurement (mass/volume)Ordered By: Jana Ferguson on 10-22-2023 Creatinine [Mass/Vol] 2.06 mg/dL 0.70-1.30 [facility] Comment on above: The validity of the calculated GFR & GFRAA in patients over 70 years has not been determined. Clinical correlation is essential. Serum or plasma urea nitroge n measurement (mass/volume)Ordered By: Jana Ferguson on 10-22-2023 Urea nitrogen [Mass/Vol] 43 mg/dL 7-18 [facility] Thin prep Papanicolaou smear with manual screeningOrdered By: Jana Ferguson on 10-22-2023 Thin prep Papanicolaou smear with manual screening 2 5-15 [facility] Basic metabolic 2000 panelon 10-13-2023 Anion gap [Moles/Vol] 17 mmol/L 10 - 2 0 mmol/L [facility] Calcium [Mass/Vol] 8.3 mg/dL Low 8.6 - 10. 3 mg/dL [facility] Chloride [Moles/Vol] 102 mmol/L 98 - 10 7 mmol/L [facility] CO2 [Moles/Vol] 22 mmol/L 21 - 32 mmol/L [facility] Creatinine [Mass/Vol] 2.30 mg/dL High 0.50 - 1.30 mg/dL [facility] GFR/1.73 sq M.predicted MDRD (S/P/Bld) [Vol rate/Area] 28 mL/min/{1.73_m2} Low - PINF [facility] Comment on above: Calculations of albin mated GFR are performed using the 2020 CKD-EPI Study Refit equation without the race variable for the IDMS-Traceable creatinine methods. https://jasn.asnjournals.org/content//ASN.20 04819115 Glucose [Mass/Vol] 327 mg/dL High 74 - 99 mg/dL Uni [facility] Interpretation and review of laboratory results Abnormal [facility] Potassium [Moles/Vol] 4.9 mmol/L 3.5 - 5.3 mmol/L [facility] Sodium [Moles/Vol] 136 mmol/L 136 - 145 mmol/L [facility] Urea nitrogen [Mass/Vol] 57 mg/dL High 6 - 23 mg/d L [facility] CBC W Auto Differential pane l (Bld)on 10-13-2023 Basophils (Bld) [#/Vol] 0.02 10*3/uL [facility] Basophils/100 WBC (Bld) 0.1 % 0.0 - 2.0 % [facility] Eosinophils (Bld) [#/Vol] 0.00 10*3/uL [facility] Eosinophils/100 WBC (Bld) 0.0 % 0.0 - 6.0 % [facility] Erythrocyte distribution width (RBC) [Ratio] 13.2 % 11.5 - 14.5 % [facility] Hematocrit (Bld) [Volume fraction] 36.4 % Low 41.0 - 52.0 % [facility] Hemoglobin (Bld) [Mass/Vol] 12.4 g/dL Low 13.5 - 17.5 g/dL [facility] Immature granulocytes (Bld) [#/Vol] 0.11 10*3/uL [facility] Immature granulocytes/100 WBC (Bld) 0.6 % 0.0 - 0.9 % [facility] Comment on above: Immature Granulocyte Count (IG) includes promyelocytes, myelocytes and metamyelocytes but does not include bands. Percent differential counts (%) should be interpreted in the context of the absolute cell counts (cells/UL). Interpretation and review of laboratory results Abnormal [facility] Lymphocytes (Bld) [#/Vol] 1.30 10*3/uL [facility] Lymphocytes/100 WBC (Bld) 7.3 % 13.0 - 44. 0 % [facility] MCH (RBC) [Entitic mass] 31.0 pg 26. 0 - 34.0 pg [facility] MCHC (RBC) [Mass/Vol] 34.1 g/dL 32.0 - 36.0 g/dL [facility] MCV (RBC) [Entitic vol] 91 fL 80 - 100 fL [facility] Monocytes (Bld) [#/Vol] 1.15 10*3/uL High [facility] Monocytes/100 WBC (Bld) 6.5 % 2.0 - 10.0 % [facility] Neutrophils (Bld) [#/Vol] 15.21 10*3/uL High [facility] Comment on above: Percent differential counts (%) should be interpreted in the context of the absolute cell counts (cells/uL). Neutrophils/100 WBC (Bld) 85.5 % 40.0 - 80. 0 % [facility] Nucleated RBC/100 WBC (Bld) [Ratio] 0.0 % [facility] Platelets (Bld) [#/Vol] 153 10*3/uL [facility] RBC (Bld) [#/Vol] 4.00 10*6/uL [facility]ld) [#/Vol] 17.8 10*3/uL High [facility] Glucose Test strip manual (B ld) [Mass/Vol]on 10-13-2023 Glucose [Mass/Vol] 329 mg/dL High 74 - 99 mg/dL [facility] Interpretation and review of laboratory results Abnormal [facility] Glucose [Mass/Vol] 304 mg/dL High 74 - 99 mg/dL [facility] Interpretation and review of laboratory results Abnormal [facility] Glucose [Mass/Vol] 305 mg/dL High 74 - 99 mg/dL [facility] Interpretation and review of laboratory results Abnormal [facility] XR Chest Single viewon 10-13 Right upper lobe airspace consolidation, concerning for pneumonia. Clinical correlation and continued follow-up until clearing is recommended. MACRO: None. Signed by: Jaret Walker 10/13/2023 11:21 AM Dictation workstation: [id number] Interpreted By: Jaret Walker, STUDY: XR CHEST 1 VIEW 10/13/2023 8:31 am INDICATION: Signs/Symptoms:Acute dyspnea COMPARISON: 10/11/2023 ACCESSION NUMBER(S): [id number] ORDERING CLINICIAN: VERA RIVERA TECHNIQUE: A single [...] INDICATION: Signs/Symptoms:Acute dyspnea COMPARISON: 10/11/2023 ACCESSION NUMBER(S): [id number] ORDERING CLINICIAN: VERA RIVERA TECHNIQUE: A single [...] Jaret Walker 10/13/2023 11:21 AM Dictation workstation: [id number] [facility] Work Phone: Radiology Study observation (narrative) [facility]: [facility]R Chest Single viewOrdered By: Jaret Walker on 10-13-2023 [facility] Work Phone: Basic metabolic 2000 panelon 10-12-2023 Anion gap [Moles/Vol] 13 mmol/L 10 - 2 0 mmol/L [facility] Calcium [Mass/Vol] 8.2 mg/dL Low 8.6 - 10. 3 mg/dL [facility] Chloride [Moles/Vol] 103 mmol/L 98 - 10 7 mmol/L [facility] CO2 [Moles/Vol] 23 mmol/L 21 - 32 mmol/L [facility] Creatinine [Mass/Vol] 2.11 mg/dL High 0.50 - 1.30 mg/dL [facility] GFR/1.73 sq M.predicted MDRD (S/P/Bld) [Vol rate/Area] 31 mL/min/{1.73_m2} Low - PINF [facility] Comment on above: Calculations of albin mated GFR are performed using the 2020 CKD-EPI Study Refit equation without the race variable for the IDMS-Traceable creatinine methods. https://jasn.asnjournals.org/content///ASN.20 07446096 Glucose [Mass/Vol] 214 mg/dL High 74 - 99 mg/dL [facility] Interpretation and review of laboratory results Abnormal [facility] Potassium [Moles/Vol] 4.4 mmol/L 3.5 - 5.3 mmol/L [facility] Sodium [Moles/Vol] 135 mmol/L Low 136 - 145 mmol/L [facility] Urea nitrogen [Mass/Vol] 44 mg/dL High 6 - 23 mg/d L [facility] CBC W Auto Differential pane l (Bld)on 10-12-2023 Basophils (Bld) [#/Vol] 0.03 10*3/uL [facility] Basophils/100 WBC (Bld) 0.1 % 0.0 - 2.0 % [facility] Eosinophils (Bld) [#/Vol] 0.00 10*3/uL [facility] Eosinophils/100 WBC (Bld) 0.0 % 0.0 - 6.0 % [facility] Erythrocyte distribution width (RBC) [Ratio] 13.0 % 11.5 - 14.5 % [facility] Hematocrit (Bld) [Volume fraction] 34.5 % Low 41.0 - 52.0 % [facility] Hemoglobin (Bld) [Mass/Vol] 11.8 g/dL Low 13.5 - 17.5 g/dL [facility] Immature granulocytes (Bld) [#/Vol] 0.09 10*3/uL [facility] Immature granulocytes/100 WBC (Bld) 0.4 % 0.0 - 0.9 % [facility] Comment on above: Immature Granulocyte Count (IG) includes promyelocytes, myelocytes and metamyelocytes but does not include bands. Percent differential counts (%) should be interpreted in the context of the absolute cell counts (cells/UL). Interpretation and review of laboratory results Abnormal [facility] Lymphocytes (Bld) [#/Vol] 1.79 10*3/uL [facility] Lymphocytes/100 WBC (Bld) 8.6 % 13.0 - 44. 0 % [facility] MCH (RBC) [Entitic mass] 30.8 pg 26. 0 - 34.0 pg [facility] MCHC (RBC) [Mass/Vol] 34.2 g/dL 32.0 - 36.0 g/dL [facility] MCV (RBC) [Entitic vol] 90 fL 80 - 100 fL [facility] Monocytes (Bld) [#/Vol] 1.55 10*3/uL High [facility] Monocytes/100 WBC (Bld) 7.5 % 2.0 - 10.0 % [facility] Neutrophils (Bld) [#/Vol] 17.32 10*3/uL [facility] Comment on above: Percent differential counts (%) should be interpreted in the context of the absolute cell counts (cells/uL). Neutrophils/100 WBC (Bld) 83.4 % 40.0 - 80. 0 % [facility] Nucleated RBC/100 WBC (Bld) [Ratio] 0.0 % [facility] Platelets (Bld) [#/Vol] 152 10*3/uL [facility] RBC (Bld) [#/Vol] 3.83 10*6/uL Low [facility]ive [facility] WBC (Bld) [#/Vol] 20.8 10*3/uL [facility] Glucose Test strip manual (B ld) [Mass/Vol]on 10-12-2023 Glucose [Mass/Vol] 240 mg/dL High 74 - 99 mg/dL [facility] Interpretation and review of laboratory results Abnormal [facility] Glucose [Mass/Vol] 166 mg/dL High 74 - 99 mg/dL [facility] Interpretation and review of laboratory results Abnormal [facility] Glucose [Mass/Vol] 186 mg/dL High 74 - 99 mg/dL [facility] Interpretation and review of laboratory results Abnormal [facility] Glucose [Mass/Vol] 218 mg/dL High 74 - 99 mg/dL [facility] Interpretation and review of laboratory results Abnormal [facility] Glucose [Mass/Vol] 127 mg/dL High 74 - 99 mg/dL [facility] Interpretation and review of laboratory results Abnormal [facility] No Panel Informationon 10-12 Extra Tube Hold for add-ons. [facility] Comment on above: Auto resulted. [facility] CBC W Auto Differential pane l (Bld)on 10-11-2023 Basophils (Bld) [#/Vol] 0.07 10*3/uL [facility] Basophils/100 WBC (Bld) 0.7 % 0.0 - 2.0 % [facility] Eosinophils (Bld) [#/Vol] 0.09 10*3/uL [facility] Eosinophils/100 WBC (Bld) 0.9 % 0.0 - 6.0 % [facility] Erythrocyte distribution width (RBC) [Ratio] 13.0 % 11.5 - 14.5 % [facility] Hematocrit (Bld) [Volume fraction] 36.7 % Low 41.0 - 52.0 % [facility] Hemoglobin (Bld) [Mass/Vol] 12.0 g/dL Low 13.5 - 17.5 g/dL [facility] Immature granulocytes (Bld) [#/Vol] 0.03 10*3/uL [facility] Immature granulocytes/100 WBC (Bld) 0.3 % 0.0 - 0.9 % [facility] Comment on above: Immature Granulocyte Count (IG) includes promyelocytes, myelocytes and metamyelocytes but does not include bands. Percent differential counts (%) should be interpreted in the context of the absolute cell counts (cells/UL). Interpretation and review of laboratory results Abnormal [facility] Lymphocytes (Bld) [#/Vol] 1.34 10*3/uL [facility] Lymphocytes/100 WBC (Bld) 12.9 % 13.0 - 44. 0 % [facility] MCH (RBC) [Entitic mass] 30.4 pg 26. 0 - 34.0 pg [facility] MCHC (RBC) [Mass/Vol] 32.7 g/dL 32.0 - 36.0 g/dL [facility] MCV (RBC) [Entitic vol] 93 fL 80 - 100 fL [facility] Monocytes (Bld) [#/Vol] 1.25 10*3/uL High [facility] Monocytes/100 WBC (Bld) 12.0 % 2.0 - 10.0 % [facility] Neutrophils (Bld) [#/Vol] 7.64 10*3/uL High [facility] Comment on above: Percent differential counts (%) should be interpreted in the context of the absolute cell counts (cells/uL). Neutrophils/100 WBC (Bld) 73.2 % 40.0 - 80. 0 % [facility] Nucleated RBC/100 WBC (Bld) [Ratio] 0.0 % [facility] Platelets (Bld) [#/Vol] 158 10*3/uL [facility] RBC (Bld) [#/Vol] 3.95 10*6/uL Low [facility]ive [facility] WBC (Bld) [#/Vol] 10.4 10*3/uL [facility] Comprehensive metabolic 2000 panelon 10-11-2023 Albumin BCP dye [Mass/Vol] 3.8 g/dL 3.4 - 5.0 g/dL [facility] ALP [Catalytic activity/Vol] 83 U/L 33 - 136 U/L [facility] ALT With P-5'-P [Catalytic activity/Vol] 13 U/L 10 - 52 U/L [facility] Comment on above: Patients treated wit h Sulfasalazine may generate falsely decreased results for ALT. Anion gap [Moles/Vol] 15 mmol/L 10 - 2 0 mmol/L [facility] AST With P-5'-P [Catalytic activity/Vol] 18 U/L 9 - 39 U/L [facility] Bilirubin [Mass/Vol] 0.4 mg/dL 0.0 - 1 .2 mg/dL [facility] Calcium [Mass/Vol] 8.5 mg/dL Low 8.6 - 10. 3 mg/dL [facility] Chloride [Moles/Vol] 103 mmol/L 98 - 10 7 mmol/L [facility] CO2 [Moles/Vol] 22 mmol/L 21 - 32 mmol/L [facility] Creatinine [Mass/Vol] 1.83 mg/dL High 0.50 - 1.30 mg/dL [facility] GFR/1.73 sq M.predicted MDRD (S/P/Bld) [Vol rate/Area] 37 mL/min/{1.73_m2} Low - PINF [facility] Comment on above: Calculations of albin mated GFR are performed using the 2020 CKD-EPI Study Refit equation without the race variable for the IDMS-Traceable creatinine methods. https://jasn.asnjournals.org/content/early/ASN.20 27222055 Glucose [Mass/Vol] 344 mg/dL High 74 - 99 mg/dL Uni [facility] Interpretation and review of laboratory results Abnormal [facility] Potassium [Moles/Vol] 4.4 mmol/L 3.5 - 5.3 mmol/L [facility] Protein [Mass/Vol] 6.3 g/dL Low 6.4 - 8.2 g/dL [facility] Sodium [Moles/Vol] 136 mmol/L 136 - 145 mmol/L [facility] Urea nitrogen [Mass/Vol] 30 mg/dL High 6 - 23 mg/d L [facility] Critical Careon 10-11-2023 Aury Rouse DO [...] specialty: no Care discussed with: admitting provider [facility] Work Phone: [facility] Work Phone: D-Dimer, VTE Exclusionon Fibrin D-dimer FEU (PPP) [Mass/Vol] 1869 High NINF [facility] ECG 12-LEADon 10-11-2023 ECG 12-LEAD Ventricular Rate 113 Atrial Rate 113 P-R Interval 148 QRS Duration 82 Q-T Interval 332 QTC Calculation(Bazett) 455 P [place] 67 R [place] 39 T [place] 81 QRS Count 18 Q Onset 220 P Onset 146 P Offset 189 T Offset 386 QTC Fredericia 410 Diagnosis Sinus tachycardia 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 NON-SPECIFIC T-WAVE CHANGES Abnormal EKG Confirmed by Tyrone Bajwa ([id number]) on 10/11/2023 6:18:47 PM Normal [facility] FLUAV and FLUBV RNA ALICE+prob e Nom (Unsp spec)on 10-11-2023 FLUAV RNA ALICE+probe Ql (Resp) Not detected Not Detected [facility] FLUBV RNA ALICE+probe Ql (Resp) Not detected Not Detected [facility] This assay is an in vitro diagnostic multiplex nucleic acid amplification test for the detection and discrimination of Influenza A & B from nasopharyngeal specimens, and has been validated for use at [facility]. Negative results do not preclude Influenza A/B infections, and should not be used as the sole basis for diagnosis, treatment, or other management decisions. If Influenza A/B and RSV PCR results are negative, testing for Parainfluenza virus, Adenovirus and Metapneumovirus is routinely performed for [facility] pediatric oncology and intensive care inpatients, and is available on other patients by placing an add-on request. [facility] Fibrin D-dimer FEU (PPP) [Ma ss/Vol]on 10-11-2023 Interpretation and review of laboratory results Abnormal [facility] The VTE Exclusion D-Dimer assay is reported in ng/mL Fibrinogen Equivalent Units (FEU). Per grader patrol's instructions for use, a value of less [...] assessment model for DVT or PE exclusion.) [facility] Gas panel (BldA)on 3 Apparatus CANNULA [facility] Base excess Calc (Bld) [Moles/Vol] -2.2000 mmol/L Low -2.0 - 3.0 mmol/L [facility] CO2 (Bld) [Partial pressure] 41 mm[Hg] [facility] HCO3 (Bld) [Moles/Vol] 23.2 mmol/L 22.0 - 26.0 mmol/L [facility] Inhaled oxygen concentration 50 % [facility] Interpretation and review of laboratory results Abnormal [facility] Oxygen (Bld) [Partial pressure] 66 mm[Hg] Low [facility] Oxyhemoglobin (BldA) [Mass fraction] 90.6 % Low 94.0 - 98.0 % [facility] pH (Bld) 7.36 [pH] Low 7.38 - 7.42 pH [facility] Glucose Test strip manual (B ld) [Mass/Vol]on 10-11-2023 Glucose [Mass/Vol] 132 mg/dL High 74 - 99 mg/dL [facility] Interpretation and review of laboratory results Abnormal [facility] Glucose [Mass/Vol] 203 mg/dL High 74 - 99 mg/dL [facility] Interpretation and review of laboratory results Abnormal [facility] Glucose [Mass/Vol] 271 mg/dL High 74 - 99 mg/dL [facility] Interpretation and review of laboratory results Abnormal [facility] Glucose [Mass/Vol] 357 mg/dL High 74 - 99 mg/dL [facility] Interpretation and review of laboratory results Abnormal [facility] Glucose [Mass/Vol] 407 mg/dL High 74 - 99 mg/dL [facility] Interpretation and review of laboratory results Abnormal [facility] Glucose [Mass/Vol] 385 mg/dL High 74 - 99 mg/dL [facility] Interpretation and review of laboratory results Abnormal [facility] Glucose [Mass/Vol] 455 mg/dL High 74 - 99 mg/dL [facility] Comment on above: RN/ NOTIFIED Interpretation and review of laboratory results Abnormal [facility] Glucose [Mass/Vol] 481 mg/dL High 74 - 99 mg/dL [facility] Comment on above: RN/MD NOTIFIED Interpretation and review of laboratory results Abnormal [facility] Glucose [Mass/Vol] mg/dL High 74 - 99 mg/dL [facility] Interpretation and review of laboratory results Abnormal [facility] Glucose [Mass/Vol] mg/dL High 74 - 99 mg/dL Uni [facility] Interpretation and review of laboratory results Abnormal [facility] Glucose [Mass/Vol] 571 mg/dL High 74 - 99 mg/dL Uni [facility] Interpretation and review of laboratory results Abnormal [facility] Glucose [Mass/Vol] 562 mg/dL High 74 - 99 mg/dL Uni [facility] Comment on above: RN/MD NOTIFIED Interpretation and review of laboratory results Abnormal [facility] Glucose [Mass/Vol] 386 mg/dL High 74 - 99 mg/dL Uni [facility] Interpretation and review of laboratory results Abnormal [facility] Glucose [Mass/Vol]on Interpretation and review of laboratory results Abnormal [facility] Glucose, randomon 10-11-2023 Glucose [Mass/Vol] 654 mg/dL Critically high 74 - 99 mg/d L [facility] Comment on above: Confirmed by repeat analysis Lactateon 10-11-2023 Lactate [Moles/Vol] 1.6 mmol/L 0.4 - 2. 0 mmol/L [facility] Lactate [Moles/Vol]on 2022 Interpretation and review of laboratory results Normal [facility] [facility] Venipuncture immediately after or during the administration of Metamizole may lead to falsely low results. Testing should be performed immediately prior to Metamizole dosing. [facility] Natriuretic peptide B [Mass/ Vol]on 10-11-2023 Interpretation and review of laboratory results Abnormal [facility] Natriuretic peptide B (Bld) [Mass/Vol] 251 pg/mL High 0 - 99 pg/mL [facility] <100 pg/mL - Heart failure unlikely 100-299 pg/mL - Intermediate probability of acute heart failure exacerbation. Correlate with clinical context and patient history. >=300 pg/mL - Heart Failure likely. Correlate with clinical context and patient history. BNP testing is performed using different testing methodology at [facility] than at other [facility]. Direct result comparisons should only be made within the same method. [facility] No Panel Informationon 10-11 Atrial Rate 113 BPM [facility] Work Phone: [phone] P [place] 67 degrees [facility] Work Phone: [phone] P Offset 189 ms [facility] Work Phone: [phone] P Onset 146 ms [facility] Work Phone: [phone] NM Interval 148 ms [facility] Work Phone: [phone] Q Onset 220 ms [facility] Work Phone: [phone] QRS Count 18 beats [facility] Work Phone: [phone] QRS Duration 82 ms [facility] Work Phone: [phone] QT Interval 332 ms [facility] Work Phone: [phone] QTC Calculation(Bazett) 455 ms U [facility] Work Phone: [phone] QTC Fredericia 410 ms [facility] Work Phone: [phone] R [place] 39 degrees [facility] Work Phone: [phone] T [place] 81 degrees [facility] Work Phone: [phone] T Offset 386 ms [facility] Work Phone: [phone] Ventricular Rate 113 BPM [facility] Work Phone: [phone] Sinus tachycardia 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 [facility] Comment on above: Auto resulted. [facility] Interpretation and review of laboratory results Normal [facility] ProcalcitoninOrdered By: Teresa Fine on 10-11-2023 Procalcitonin [Mass/Vol] 0.18 ng/mL High ANGEL F - 0.07 ng/mL [facility] Procalcitonin [Mass/Vol]Orde red By: Ismael Fine on 10-11-2023 Interpretation and review of laboratory results Abnormal [facility] Procalcitonin (PCT) results measured serially can [...] on immunomodulatory medications has not been evaluated. [facility] RSV PCRon 10-11-2023 RSV RNA ALICE+probe Ql (Resp) Not detected Not Detected [facility] RSV RNA ALICE+probe Ql (Resp)o n 10-11-2023 This assay is an FDA-cleared, in vitro diagnostic nucleic acid amplification test for the detection of RSV from nasopharyngeal specimens, and has been validated for use at [facility]. Negative results do not preclude RSV infections, and should not be used as the sole basis for diagnosis, treatment, or other management decisions. If Influenza A/B and RSV PCR results are negative, testing for Parainfluenza virus, Adenovirus and Metapneumovirus is routinely performed for pediatric oncology and intensive care inpatients at [facility], and is available on other patients by placing an add-on request. [facility] SARS-CoV-2 (COVID-19) RNA NA A+probe Ql (Resp)Ordered By: Rae Marcelino on 10-11-2023 Interpretation and review of laboratory results Abnormal [facility] This assay has received FDA Emergency [...] and has been validated for use at [facility]. Negative results do not preclude COVID-19 infections and should not be used as the sole basis for diagnosis, treatment, or other management decisions. [facility] SST TOPon 10-11-2023 Extra Tube Hold for add-ons. [facility] Comment on above: Auto resulted. [facility] Sars-CoV-2 PCR, SymptomaticO rdered By: Rae Marcelino on 10-11-2023 SARS-CoV-2 (COVID-19) RNA ALICE+probe Ql (Resp) Detected Abnormal Not Detected [facility] Tropinin I.cardiac panel Hig h sensitivity methodon 10-11-2023 Interpretation and review of laboratory results Abnormal [facility] Less than 99th percentile of normal [...] performed using a different testing methodology at [facility] than at other [facility]. Direct result comparisons should only be made within the same method. [facility] Interpretation and review of laboratory results Abnormal [facility] Less than 99th percentile of normal [...] performed using a different testing methodology at [facility] than at other [facility]. Direct result comparisons should only be made within the same method. [facility] Troponin I, High Sensitivity , Initialon 10-11-2023 Tropinin I.cardiac panel High sensitivity method 102 ng/L Critically high 0 - 20 ng/L [facility] Troponin, High Sensitivity, 1 Houron 10-11-2023 Tropinin I.cardiac panel High sensitivity method 354 ng/L Critically high 0 - 20 ng/L [facility] Comment on above: Previous result adami gera on 10/11/2023 0209 on specimen/case [id number] called with component [facility] for procedure Troponin I, High Sensitivity, Initial with value 102 ng/L. US Heart TransthoracicOrdere d By: Jose Enrique Molina on 10-11-2023 LA vol index A/L 25.1 [facility] Work Phone: LV A4C EF 45.6 [facility] Work Phone: LV biplane EF 44 [facility] Work Phone: LVIDd 3.70 [facility] Work Phone: LVOT diam 1.80 [facility] Work Phone: [facility] Work Phone: US [place] [address] [phone], TRANSTHORACIC ECHOCARDIOGRAM REPORT Patient Name: ENOC GRANTRE Reading Physician: [id number] Jose Enrique Molina MD Study Date: 10/11/2023 Ordering Provider: [id number] VERA RIVERA MRN/PID: [id number] Fellow: Nurse: Jana See RN Date of /Age: 2 1945 / 77 years Remote Pilot Operator: Cecilio Gabriel RDCS Gender: M Additional Staff: Height: 170.18 cm Admit Date: Weight: 71.67 kg Admission Status: Inpatient - Routine BSA: 1.83 m2 Department Location: [address]-ICU Blood Pressure: 141 /71 mmHg Study Type: TRANSTHORACIC ECHO (TTE) COMPLETE Diagnosis/ICD: Acute on chronic systolic (congestive) heart failure (CHF)-I50.23 CPT Codes: Echo Complete w Full Doppler-03863 Study Detail: The following Echo studies were [...] LA Area A2C: 16.2 cm2 LA Major [place] A4C: 5.3 cm LA Major [place] A2C: 5.0 cm LA Volume Index: 23.9 ml/m2 LA Vol A4C: 43.7 ml LA Vol A2C: 43.3 ml LV SYSTOLIC FUNCTION BY 2D PLANIMETRY (MOD): Normal Ranges: EF-A4C View: 45.6 % (>=55%) EF-A2C View: 40.9 % EF-Biplane: 44.2 % AORTIC VALVE: Normal Ranges: LVOT Diameter: 1.80 cm (1.8-2.4cm) RIGHT VENTRICLE: RV Basal 3.49 cm RV Mid 2.45 cm RV Major 7.8 cm [id number] Jose Enrique Molina MD Electronically signed on 10/11/2023 at 9:43:19 AM Final Jose Enrique Gardiner MD - 10/11/2023 [place] [address] [phone], TRANSTHORACIC ECHOCARDIOGRAM REPORT Patient Name: ENOC ARMANDO Reading Physician: [id number] Jose Enrique Molina MD Study Date: 10/11/2023 Ordering Provider: [id number] VERA RIVERA MRN/PID: [id number] Fellow: Nurse: Jana See RN Date of /Age: 2 1945 / 77 years Remote Pilot Operator: Cecilio Gabriel RDCS Gender: M Additional Staff: Height: 170.18 cm Admit Date: Weight: 71.67 kg Admission Status: Inpatient - Routine BSA: 1.83 m2 Department Location: [address]-ICU Blood Pressure: 141 /71 mmHg Study Type: TRANSTHORACIC ECHO (TTE) COMPLETE Diagnosis/ICD: Acute on chronic systolic (congestive) heart failure (CHF)-I50.23 CPT Codes: Echo Complete w Full Doppler-41381 Study Detail: The following Echo studies were [...] LA Area A2C: 16.2 cm2 LA [place] A4C: 5.3 cm LA Major [place] A2C: 5.0 cm LA Volume Index: 23.9 ml/m2 LA Vol A4C: 43.7 ml LA Vol A2C: 43.3 ml LV SYSTOLIC FUNCTION BY 2D PLANIMETRY (MOD): Normal Ranges: EF-A4C View: 45.6 % (>=55%) EF-A2C View: 40.9 % EF-Biplane: 44.2 % AORTIC VALVE: Normal Ranges: LVOT Diameter: 1.80 cm (1.8-2.4cm) RIGHT VENTRICLE: RV Basal 3.49 cm RV Mid 2.45 cm RV Major 7.8 cm [id number] Jose Enrique Molina MD Electronically signed on 10/11/2023 at 9:43:19 AM Final [facility] Work Phone: Urinalysis complete W Reflex Culture panel (U)on 10-11-2023 Hyaline casts Auto (Urine sed) [#/Area] OCCASIONAL Abnormal NONE /LPF [facility] Interpretation and review of laboratory results Abnormal [facility] RBC Auto (Urine sed) [#/Area] NONE NONE, 1-2, 3-5 /HPF [facility] WBC Auto (Urine sed) [#/Area] NONE 1-5, NONE /HPF [facility] Appearance (U) Clear Clear [facility] Work Phone: [phone] Bilirubin (U) [Mass/Vol] Negative NEGATIVE [facility] Work Phone: [phone] Color (U) Yellow Straw, Yellow [facility] Work Phone: [phone] Glucose Auto test strip (U) [Mass/Vol] >=500 (3+) Abnormal NEGATIVE mg/dL [facility] Work Phone: [phone] Interpretation and review of laboratory results Abnormal [facility] Work Phone: [phone] Ketones (U) [Mass/Vol] 5 (TRACE) Abnormal NEGAT FRANK mg/dL [facility] Work Phone: [phone] Leukocyte esterase Auto test strip Ql (U) Negative NEGATIVE [facility] Work Phone: [phone] Nitrite Auto test strip Ql (U) Negative NEGATIVE [facility] Work Phone: pH (U) 5.0 [pH] 5.0, 5.5, 6.0, 6.5, 7.0, 7.5, 8.0 [facility] Work Phone: Protein (U) [Mass/Vol] 100 (2+) Abnormal NEGAT FRANK mg/dL [facility] Work Phone: RBC (U) [#/Vol] Negative NEGATIVE [facility] Work Phone: Specific gravity (U) [Rel density] 1.014 1.005 - 1.035 [facility] Work Phone: Urobilinogen (U) [Mass/Vol] mg/dL [facility] - 2.0 mg/dL [facility] Work Phone: [facility] Work Phone: XR Chest Single viewon 10-11 1. Diffuse interstitial and scattered hazy opacities. These are nonspecific and may represent atypical infectious or inflammatory process or possibly edema in the appropriate clinical setting. Component may also be related to chronic parenchymal changes. Recommend follow-up to resolution. Signed by: Kahlil Fagan 10/11/2023 1:33 AM Dictation workstation: [id number] Interpreted By: Kahlil Fagan, STUDY: XR CHEST 1 VIEW; 10/11/2023 1:30 am INDICATION: Signs/Symptoms:Cough . COMPARISON: Chest radiograph 11/04/2012 ACCESSION NUMBER(S): [id number] ORDERING CLINICIAN: AURY ROUSE FINDINGS: SUPPORT DEVICES: [...] . COMPARISON: Chest radiograph 11/04/2012 ACCESSION NUMBER(S): [id number] ORDERING CLINICIAN: AURY ROUSE FINDINGS: SUPPORT DEVICES: [...] Kahlil Fagan 10/11/2023 1:33 AM Dictation workstation: [id number] [facility] Work Phone: Radiology Study observation (narrative) [facility] Work Phone: XR Chest Single viewOrdered By: Kahlil Fagan on 10-11-2023 [facility] Work Phone: US RENAL BILATon 07-30-2023 US RENAL BILAT Patient Name: ENOC ARMANDO STUDY: US RENAL BILAT 07/30/2023 1:11 pm INDICATION: 77 y/o M with CKD N18.9: CKD (chronic kidney disease). COMPARISON: None. ACCESSION NUMBER(S): [id number] ORDERING CLINICIAN: AYANNA ALBERT TECHNIQUE: Grayscale imaging [...] Electronically signed by: TENNILLE MAHARAJ MD Normal [facility] Therapy Communicationon 07-03 Therapy Communication Message ENOC ARMANDO was (D/C)- last seen: 01/25/23. Pt self-discharged from skilled Physical Therapy at this time. Pt was not able to be fully re-assessed due to self-discharging and not attending final re-evaluation appointment. Refer back in future if necessary. Signatures Electronically signed by : Carlene Whitehead PT; Jul 29 2023 5:06PM EST (Author) Normal [facility] Initial Visit (Nephrology)on 07-27-2023 Initial Visit (Nephrology) Diagnoses/Problems Arthritis (716.90) (M19.90) CKD (chronic kidney disease) (585.9) (N18.9) Diabetic neuropathy (250.60,357.2) (E11.40) HTN (hypertension) (401.9) (I10) T1DM (type 1 diabetes mellitus) (250.01) (E10.9) Orders Albumin, Urine Spot; Status:Active; Requested for:90Hou5194; Basic Metabolic Panel; Status:Active; Requested for:70Xyb5432; Magnesium, Serum; Status:Active; Requested for:19Bnl8288; Parathormone Intact, Serum; Status:Active; Requested for:29Bit4266; Phosphorus, Serum; Status:Active; Requested for:11Fzx3084; Ultrasound Kidney Bilateral; Status:Hold For - Scheduling; Requested for:08Ebj8606; Radiologist to Determine Optimal Study : Y What are the patient's signs and symptoms? : CKD Uric Acid, Serum; Status:Active; Requested for:74Mxc4550; Urinalysis; Status:Active; Requested for:21Zwp7733; Vitamin D 25-Hydroxy; Status:Need Information - ABN Disposition; Requested for:86Tfs9787; Patient Discussion/Summary Issues: 1. 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 Normal [facility] Tobacco Screening.on 023 Fall risk assessment b) One or more fall s in the last year [facility] Work Phone: Tobacco use status [facility] a) Yes U [facility] Work Phone: COMPREHENSIVE PANELon 2022 Albumin [Mass/Vol] 3.7 g/dL Normal 3.4 - 5.0 [facility] Comment on above: Performed By: #### C MP #### [address] [address] ALP [Catalytic activity/Vol] 80 U/L Normal 33 - 136 [facility] Comment on above: Performed By: #### C MP #### [address] [address] ALT [Catalytic activity/Vol] 12 U/L Normal 10 - 52 [facility] Comment on above: Result Comment: Twila ents treated with Sulfasalazine may generate falsely decreased results for ALT. Performed By: #### C MP #### [address] [address] Anion gap [Moles/Vol] 10 mmol/L Normal 10 - 20 [facility] Comment on above: Performed By: #### C MP #### [address] [address] AST [Catalytic activity/Vol] 16 U/L Normal 9 - 39 [facility] Comment on above: Performed By: #### C MP #### [address] [address] Bilirubin [Mass/Vol] 0.5 mg/dL Normal 0.0 - 1.2 [facility] Comment on above: Performed By: #### C MP #### [address] [address] Calcium [Mass/Vol] 8.9 mg/dL Normal 8.6 - 10.3 [facility] Comment on above: Performed By: #### C MP #### [address] [address] Chloride [Moles/Vol] 107 mmol/L Normal 98 - 107 [facility] Comment on above: Performed By: #### C MP #### [address] [address] Creatinine [Mass/Vol] 1.85 mg/dL High 0.50 - 1.30 [facility] Comment on above: Performed By: #### C MP #### [address] [address] GFR/1.73 sq M.predicted among non-blacks MDRD (S/P/Bld) [Vol rate/Area] 36 mL/min/{1.73_m2} Abnormal >90 [facility] Comment on above: Result Comment: CALC ULATIONS OF ESTIMATED GFR ARE PERFORMED USING THE 2020 CKD-EPI STUDY REFIT EQUATION WITHOUT THE RACE VARIABLE FOR THE IDMS-TRACEABLE CREATININE METHODS. https://jasn.asnjournals.org/content///ASN.20 30123804 Performed By: #### C MP #### [address] [address] Glucose [Mass/Vol] 347 mg/dL High 74 - 99 [facility] Comment on above: Performed By: #### C MP #### [address] [address] HCO3 (Bld) [Moles/Vol] 27 mmol/L Normal 21 - 32 [facility] Comment on above: Performed By: #### C MP #### [address] [address] Potassium [Moles/Vol] 4.4 mmol/L Normal 3.5 - 5.3 [facility] Comment on above: Performed By: #### C MP #### [address] [address] Protein [Mass/Vol] 6.0 g/dL Low 6.4 - 8.2 [facility] Comment on above: Performed By: #### C MP #### [address] [address] Sodium [Moles/Vol] 140 mmol/L Normal 136 - 145 [facility] Comment on above: Performed By: #### C MP #### [address] [address] Urea nitrogen [Mass/Vol] 31 mg/dL High 6 - 23 [facility] Comment on above: Performed By: #### C MP #### [address] [address] HEMOGLOBIN A1Con 06-11-2023 Glucose [Mass/Vol] 171 mg/dL Normal [facility] Comment on above: Performed By: #### H BA1E #### [address] [address] HbA1c (Bld) [Mass fraction] 7.6 % Abnormal [facility] Comment on above: Result Comment: Diag nosis of Diabetes-Adults Non-Diabetic: < or = 5.6% Increased risk for developing diabetes: 5.7-6.4% Diagnostic of diabetes: > or = 6.5% . Monitoring of Diabetes Age (y) Therapeutic Goal (%) Adults: >18 <7.0 Pediatrics: 13-18 <7.5 7-12 <8.0 0- 6 7.5-8.5 [employer]. Diabetes Care 33(S1), Nov 2009. Performed By: #### H BA1E #### [address] [address] ALBUMIN, URINE SPOTon 2022 ALBUMIN,URINE 195.3 mg/L Normal Not Established [facility] Comment on above: Performed By: #### A LBSP ####[id number] [place] [address] ALBUMIN/CREAT RATIO 212.5 ug/mg [employer] High 0.0 - 30.0 [facility] Comment on above: Performed By: #### A LBSP ####[id number] [place] [address] CREATININE,URINE 91.9 mg/dL Normal 20.0 - 370.0 [facility] Comment on above: Performed By: #### A LBSP ####[id number] [place] [address] CBC AND DIFFERENTIALon 02-12 % AUTOMATED IMMATURE GRAN 0.3 % Normal 0.0 - 0.9 [facility] Comment on above: Result Comment: Arielle ture Granulocyte Count (IG) includes promyelocytes, myelocytes and metamyelocytes but does not include bands. Percent differential counts (%) should be interpreted in the context of the absolute cell counts (cells/L). Performed By: #### C BCDF #### [address] [address] Basophils (Bld) [#/Vol] 0.09 10*3/uL Normal 0.00 - 0.1 0 [facility] Comment on above: Performed By: #### C BCDF #### [address] [address] Basophils/100 WBC (Bld) 1.2 % Normal 0.0 - 2.0 [facility] Comment on above: Performed By: #### C BCDF #### [address] [address] Eosinophils (Bld) [#/Vol] 0.40 10*3/uL Normal 0.00 - 0 .40 [facility] Comment on above: Performed By: #### C BCDF #### [address] [address] Eosinophils/100 WBC (Bld) 5.2 % Normal 0.0 - 6.0 [facility] Comment on above: Performed By: #### C BCDF #### [address] [address] Erythrocyte distribution width (RBC) [Ratio] 13.1 % Normal 11.5 - 14.5 [facility] Comment on above: Performed By: #### C BCDF #### [address] [address] Hematocrit (Bld) [Volume fraction] 39.5 % Low 41.0 - 52.0 [facility] Comment on above: Performed By: #### C BCDF #### [address] [address] Hemoglobin (Bld) [Mass/Vol] 12.6 g/dL Low 13.5 - 17.5 [facility] Comment on above: Performed By: #### C BCDF #### [address] [address] Lymphocytes (Bld) [#/Vol] 1.68 10*3/uL Normal 0.80 - 3 .00 [facility] Comment on above: Performed By: #### C BCDF #### [address] [address] Lymphocytes/100 WBC (Bld) 21.9 % Normal 13.0 - 44. 0 [facility] Comment on above: Performed By: #### C BCDF #### [address] [address] MCHC (RBC) [Mass/Vol] 31.9 g/dL Low 32.0 - 36.0 [facility] Comment on above: Performed By: #### C BCDF #### [address] [address] MCV (RBC) [Entitic vol] 95 fL Normal 80 - 100 [facility] Comment on above: Performed By: #### C BCDF #### [address] [address] Monocytes (Bld) [#/Vol] 0.57 10*3/uL Normal 0.05 - 0.8 0 [facility] Comment on above: Performed By: #### C BCDF #### [address] [address] Monocytes/100 WBC (Bld) 7.4 % Normal 2.0 - 10.0 [facility] Comment on above: Performed By: #### C BCDF #### [address] [address] Neutrophils (Bld) [#/Vol] 4.91 10*3/uL Normal 1.60 - 5 .50 [facility] Comment on above: Result Comment: Perc ent differential counts (%) should be interpreted in the context of the absolute cell counts (cells/L). Performed By: #### C BCDF #### [address] [address] Neutrophils/100 WBC (Bld) 64.0 % Normal 40.0 - 80. 0 [facility] Comment on above: Performed By: #### C BCDF #### [address] [address] Platelets (Bld) [#/Vol] 229 10*3/uL Normal 150 - 450 [facility] Comment on above: Performed By: #### C BCDF #### [address] [address] RBC 4.18 x10E12/L Low 4.50 - 5.90 [facility] Comment on above: Performed By: #### C BCDF #### [address] [address] WBC (Bld) [#/Vol] 7.7 10*3/uL Normal 4.4 - 11.3 [facility] Comment on above: Performed By: #### C BCDF #### [address] [address] COMPREHENSIVE PANELon 2022 Albumin [Mass/Vol] 4.0 g/dL Normal 3.4 - 5.0 [facility] Comment on above: Performed By: #### C MP #### [address] [address] ALP [Catalytic activity/Vol] 79 U/L Normal 33 - 136 [facility] Comment on above: Performed By: #### C MP #### [address] [address] ALT [Catalytic activity/Vol] 12 U/L Normal 10 - 52 [facility] Comment on above: Result Comment: Twila ents treated with Sulfasalazine may generate falsely decreased results for ALT. Performed By: #### C MP #### [address] [address] Anion gap [Moles/Vol] 10 mmol/L Normal 10 - 20 [facility] Comment on above: Performed By: #### C MP #### [address] [address] AST [Catalytic activity/Vol] 13 U/L Normal 9 - 39 [facility] Comment on above: Performed By: #### C MP #### [address] [address] Bilirubin [Mass/Vol] 0.6 mg/dL Normal 0.0 - 1.2 [facility] Comment on above: Performed By: #### C MP #### [address] [address] Calcium [Mass/Vol] 9.4 mg/dL Normal 8.6 - 10.3 [facility] Comment on above: Performed By: #### C MP #### [address] [address] Chloride [Moles/Vol] 105 mmol/L Normal 98 - 107 [facility] Comment on above: Performed By: #### C MP #### [address] [address] Creatinine [Mass/Vol] 1.69 mg/dL High 0.50 - 1.30 [facility] Comment on above: Performed By: #### C MP #### [address] [address] GFR/1.73 sq M.predicted among non-blacks MDRD (S/P/Bld) [Vol rate/Area] 41 mL/min/{1.73_m2} Abnormal >90 [facility] Comment on above: Result Comment: CALC ULATIONS OF ESTIMATED GFR ARE PERFORMED USING THE 2020 CKD-EPI STUDY REFIT EQUATION WITHOUT THE RACE VARIABLE FOR THE IDMS-TRACEABLE CREATININE METHODS. https://jasn.asnjournals.org/content//ASN.20 26784476 Performed By: #### C MP #### [address] [address] Glucose [Mass/Vol] 253 mg/dL High 74 - 99 [facility] Comment on above: Performed By: #### C MP #### [address] [address] HCO3 (Bld) [Moles/Vol] 28 mmol/L Normal 21 - 32 [facility] [facility] Comment on above: Performed By: #### C MP #### [address] [address] Potassium [Moles/Vol] 4.8 mmol/L Normal 3.5 - 5.3 [facility] Comment on above: Performed By: #### C MP #### [address] [address] Protein [Mass/Vol] 6.4 g/dL Normal 6.4 - 8.2 [facility] Comment on above: Performed By: #### C MP #### [address] [address] Sodium [Moles/Vol] 138 mmol/L Normal 136 - 145 [facility] Comment on above: Performed By: #### C MP #### [address] [address] Urea nitrogen [Mass/Vol] 25 mg/dL High 6 - 23 [facility] Comment on above: Performed By: #### C MP #### [address] [address] HEMOGLOBIN A1Con 02-12-2023 Glucose [Mass/Vol] 174 mg/dL Normal [facility] Comment on above: Performed By: #### H BA1E #### [address] [address] HbA1c (Bld) [Mass fraction] 7.7 % Abnormal [facility] Comment on above: Result Comment: Diag nosis of Diabetes-Adults Non-Diabetic: < or = 5.6% Increased risk for developing diabetes: 5.7-6.4% Diagnostic of diabetes: > or = 6.5% . Monitoring of Diabetes Age (y) Therapeutic Goal (%) Adults: >18 <7.0 Pediatrics: 13-18 <7.5 7-12 <8.0 0- 6 7.5-8.5 [employer]. Diabetes Care 33(S1), Nov 2009. Performed By: #### H BA1E #### [address] [address] LIPID PANEL (CORONARY RISK 2 )on 02-12-2023 Cholesterol [Mass/Vol] 154 mg/dL Normal 0 - 199 [facility] Comment on above: Result Comment: . [...] dosing. Performed By: #### L IPID #### [address] [address] Cholesterol in HDL [Mass/Vol] 43.0 mg/dL Normal [facility] Comment on above: Result Comment: . AGE VERY LOW LOW NORMAL HIGH 0-19 Y < 35 < 40 40-45 ---- 20-24 Y ---- < 40 >45 ---- >24 Y ---- < 40 40-60 >60 . Performed By: #### L IPID #### [address] [address] Cholesterol in LDL [Mass/Vol] 96 mg/dL Normal 0 - 99 [facility] Comment on above: Result Comment: . NEAR BORD AGE DESIRABLE OPTIMAL HIGH HIGH VERY HIGH 0-19 Y 0 - 109 --- 110-129 >/= 130 ---- 20-24 Y 0 - 119 --- 120-159 >/= 160 ---- >24 Y 0 - 99 100-129 130-159 160-189 >/=190 . Performed By: #### L IPID #### [address] [address] Cholesterol in VLDL [Mass/Vol] 15 mg/dL Normal 0 - 40 [facility] Comment on above: Performed By: #### L IPID #### [address] [address] Cholesterol.total/Cholest santos in HDL [Mass ratio] 3.6 {ratio} Normal [facility] Comment on above: Result Comment: REF VALUES DESIRABLE < 3.4 HIGH RISK > 5.0 Performed By: #### L IPID #### [address] [address] Triglyceride [Mass/Vol] 77 mg/dL Normal 0 - 149 [facility] Comment on above: Result Comment: . [...] dosing. Performed By: #### L IPID #### [address] [address] PROSTATE SPEC.AG,SCREENon PROSTATE SPEC.AG,SCREEN 3.14 ng/mL Normal 0.00 - 4.00 [facility] Comment on above: Result Comment: The FDA requires that the method used for PSA assay be reported to the physician. Values obtained with different assay methods must not be used interchangeably. This test was performed at [facility] using the [employer] PSA assay is a two-site immunoenzymatic sandwich assay. The assay is approved for measurement of prostate-specific antigen (PSA)in serum and may be used in conjunction with a digital rectal examination in men 50 years and older as an aid in detection of prostate cancer. 3-Srvxf-qtihzzfex inhibitors (e.g. Proscar, Finasteride, Avodart, Dutasteride and Alma Rosa) for the treatment of BPH have been shown to lower PSA levels by an average of 50% after 6 months of treatment. Performed By: #### P [facility] #### [place] [address] THYROXINE,FREEon 02-12-2023 THYROXINE,FREE 1.16 ng/dL High 0.61 - 1.12 [facility] Comment on above: Result Comment: Thyr oxine Free testing is performed using different testing methodology at [facility] than at other [facility] [...] draw. Performed By: #### T 4FRE #### [address] [address] TSHon 02-12-2023 TSH Qn 0.73 m[IU]/L Normal 0.44 - 3.98 [facility] Comment on above: Result Comment: TSH testing is performed using different testing methodology at [facility] than at other [facility]. Direct result comparisons should only be made within the same method. Performed By: #### T SH2 #### [address] [address] PT Progress Noteon 3 PT Progress Note [...] . the patient will continue therapy at [place]. Potential to achieve rehab goals is fair: [...] Declined. Insurance Insurance reviewed Visit number: 10 [facility] Evaluating therapist Shoaib Bhandari PT. The physical [...] code time is 30 minutes. Therapeutic exercise (25139):. Not Today 01/25/23 NuStep 5? Slant board [...] 10 x 10? hold (N). Manual Therapy (63462): timed minutes 15, units 1 . STW [...] . the patient will continue therapy at [place]. Potential to achieve rehab goals is fair: [...] Declined. Insurance Insurance reviewed Visit number: 9 [facility] Evaluating therapist Shoaib Bhandari PT. The physical [...] code time is 35 minutes. Therapeutic exercise (05610): timed minutes 20, units 1 . Pt [...] wit (more content not included)... Normal [facility] Re-eval Noteon 01-18 Therapy Re-eval Note [...] . the patient will continue therapy at [place]. Potential to achieve rehab goals is fair: [...] Declined. Insurance Insurance reviewed Visit number: 9 [facility] Evaluating therapist Shoaib Bhandari PT. The physical [...] code time is 35 minutes. Therapeutic exercise (56247): timed minutes 20, units 1 . Pt [...] disc chops (more content not included)... Normal [facility] Progress Noteon 3 PT Progress Note [...] . the patient will continue therapy at [place]. Potential to achieve rehab goals is fair: [...] Declined. Insurance Insurance reviewed Visit number: 8 [facility] Evaluating therapist Shoaib Bhandari PT. The physical [...] code time is 38 minutes. Therapeutic exercise (36640): timed minutes 26, units 2 . NuStep [...] 30? D/C to HEP . Manual Therapy (13953): timed minutes 12, units 1 . STW to glutes and QL and IT band. Provided today:. 12/25/22 [id number] Provided and reviewed HEP, patient demosntrated good [...] . the patient will continue therapy at [place]. Potential to achieve rehab goals is fair: [...] Declined. Insurance Insurance reviewed Visit number: 7 [facility] Evaluating therapist Shoaib Bhandari PT. The physical [...] code time is 38 minutes. Therapeutic exercise (54751): timed minutes 26, units 2 . NuStep [...] 30? D/C to HEP . Manual Therapy (90688): timed minutes 12, units 1 . STW to glutes and QL and IT band. Provided today:. 12/25/22 [id number] Provided and reviewed HEP, patient demosntrated good understanding. 'Scores and Scales' Signatures Electronically signed by : Chaya Chan, BOX STAPLER; Jan 13 2023 11:01AM EST (Author) Electronically [...] . the patient will continue therapy at [place]. Potential to achieve rehab goals is fair: [...] Declined. Insurance Insurance reviewed Visit number: 6 [facility] Evaluating therapist Shoaib Bhandari PT. The physical [...] code time is 43 minutes. Therapeutic exercise (63852): timed minutes 32, units 2 . NuStep [...] x 10 Green band . Manual Therapy (28599): timed minutes 11, units 1 . STW to glutes and QL 10'. Provided today:. 12/25/22 [id number] Provided and reviewed HEP, patient demosntrated good understanding. 'Scores and Scales' Signatures Electronically signed by : Chaya Chan, BOX STAPLER; Jan 08 2023 10:51AM EST (Author) Electronically [...] . the patient will continue therapy at [place]. Potential to achieve rehab goals is fair: [...] Declined. Insurance Insurance reviewed Visit number: 5 [facility] Evaluating therapist Shoaib Bhandari PT. The physical [...] code time is 44 minutes. Therapeutic exercise (32483): timed minutes 34, units 2 . NuStep [...] 10 Green band (N) . Manual Therapy (15726): timed minutes 10, units 1 . STW to glutes and QL 10'. Provided today:. 12/25/22 [id number] Provided and reviewed HEP, patient demosntrated good [...] . the patient will continue therapy at [place]. Potential to achieve rehab goals is fair: [...] Declined. Insurance Insurance reviewed Visit number: 4 [facility] Evaluating therapist Shoaib Bhandari PT. The physical [...] code time is 44 minutes. Therapeutic exercise (12049): timed minutes 34, units 2 . NuStep [...] x 10 orange band . Manual Therapy (08816): timed minutes 10, units 1 . STW to glutes and QL 10'. Provided today:. 12/25/22 [id number] Provided and reviewed HEP, patient demosntrated good understanding. 'Scores and Scales' Signatures Electronically signed by : Zoila Lopez, BOX STAPLER; Jan 01 2023 12:56PM EST (Author) Electronically [...] . the patient will continue therapy at [place]. Potential to achieve rehab goals is fair: [...] code time is 44 minutes. Therapeutic exercise (05697): timed minutes 34, units 2 . NuStep [...] x 10 orange band . Manual Therapy (35767): timed minutes 10, units 1 . STW to glutes and QL 10'. Provided today:. 12/25/22 [id number] Provided and reviewed HEP, patient demosntrated good understanding. 'Scores and Scales' Signatures Electronically signed by : Zoila Lopez, BOX STAPLER; Dec 30 2022 5:01PM EST (Author) Electronically [...] . the patient will continue therapy at [place]. Potential to achieve rehab goals is fair: [...] Declined. Insurance Insurance reviewed Visit number: 2 [facility] Evaluating therapist Shoaib Bhandari PT. The physical [...] code time is 41 minutes. Therapeutic exercise (20133): timed minutes 31, units 2 . NuStep 5? start wall lean n mini squat x10 LTR x10 5? hold Piriformis stretch 3 x 30? Supine QL stretch 3 x 30? Hip flex stretch EOB TrA x10 5? hold Hooklying TrA/hip add ball 2 x 10 3? hold Hooklying TrA/hip abd 2 x 10 orange band . Manual Therapy (94569): timed minutes 10, units 1 . STW to gluts and QL. Provided today:. 12/25/22 [id number] Provided and reviewed HEP, patient demosntrated good understanding. 'Scores and Scales' Signatures Electronically signed by : Chaya Chan BOX [employer]APLER; Dec 25 2022 10:14AM EST (Author) Electronically signed by : Carlene Whitehead PT; Jan 17 2023 3:06PM EST Normal [facility] Initial Evaluationon 12-03 PT Initial Evaluation [...] . the patient will continue therapy at [place]. 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 Assessment At least a 5 yr HX of LBP (previous HX of sciatica). No recent film studies have been done. He will be a low fall risk. The patient will continue his therapy at [place]. Physical findings include limited trunk ROM with [...] Declined. Insurance Insurance reviewed Visit number: 1 [facility] Evaluating therapist Shoaib Bhandari PT. The physical [...] Impact Care:. ID confirmed with B-day; speaks dutch No obtrusive barriers to learning identified/observed. Objective [...] Date: 02/26/2021 1:55 PM Patient Status: Outpatient Student Dean: Melissa Swift, TAMMI, RDMS (AB), RVT Referring Physician: MARY VARGAS ; Indications I65.23 - Occlusion and stenosis of bilateral carotid arteries Procedure Description 99217 Duplex examination using B-mode, color and spectral [...] in the (more content not included)... [facility] Interface, Rad In Heartlab Xper Echopacs - 02/26/2021 4:33 PM EDT Patient Info Name: ENOC ARMANDO Age: 75 years : 1945 Gender: Male Exam Date: 02/26/2021 1:55 PM Patient Status: Outpatient Student Dean: Melissa Swift, BS, RDMS (AB), RVT Referring Physician: MARY VARGAS ; Indications I65.23 - Occlusion and stenosis of bilateral carotid arteries Procedure Description 98083 Duplex examination using B-mode, color and spectral [...] Nguyen DO on 02/26/2021 04:31 PM [facility] Auto Diffon 07-04-2019 Basophils (Bld) [#/Vol] 0.1 E3/mcL Normal 0.0-0.2 [facility] Comment on above: Order Comment: Order Added by Discern Expert. Performed By: #### 2 [id number] #### MI[facility] [employer] [address] [place] [address] Basophils/100 WBC (Bld) 1.2 % Normal 0.0-2.0 [facility] Comment on above: Order Comment: Order Added by Discern Expert. Performed By: #### 2 843279 #### [facility] [employer] [address] [place] [address] Eos Absolute 0.2 E3/mcL Normal 0.0-0.7 [facility] Comment on above: Order Comment: Order Added by Discern Expert. Performed By: #### 2 452034 #### MIKE Rodriguez[address] [address] Eosinophils/100 WBC (Bld) 2.0 % Normal 0.0-11.0 [facility] Comment on above: Order Comment: Order Added by Discern Expert. Performed By: #### 2 599641 #### MIKE [address] [address] Lymphocytes (Bld) [#/Vol] 1.7 E3/mcL Normal 1.2-3.4 [facility] Comment on above: Order Comment: Order Added by Discern Expert. Performed By: #### 2 497535 #### MIKE [address] [address] Lymphocytes/100 WBC (Bld) 20.9 % Normal 20.0-55.0 [facility] Comment on above: Order Comment: Order Added by Discern Expert. Performed By: #### 2 995193 #### MIKE [address] [address] [place] Absolute 0.7 E3/mcL Normal 0.0-0.7 [facility] Comment on above: Order Comment: Order Added by Discern Expert. Performed By: #### 2 955550 #### MIKE Rodriguez[address] [address] Monocytes/100 WBC (Bld) 8.0 % Normal 0.0-10.0 [facility] Comment on above: Order Comment: Order Added by Discern Expert. Performed By: #### 2 572073 #### MIKE [address] [address] Neutro Absolute 5.5 E3/mcL Normal 1.4-6.5 [facility] Comment on above: Order Comment: Order Added by Discern Expert. Performed By: #### 2 294501 #### MIKE [address] [address] Neutro Auto 67.9 % Normal 37.0-75.0 [facility] Comment on above: Order Comment: Order Added by Discern Expert. Performed By: #### 2 679232 #### MIKE [address] [address] CBC w/ Auto Diffon 09-03-201 9 Erythrocyte distribution width (RBC) [Ratio] 13.3 % Normal 11.5-14.5 [facility] Comment on above: Performed By: #### 2 175226 #### [place] [address] [place] [address] Hematocrit (Bld) [Volume fraction] 40.4 % Low 42.0-52.0 [facility] Comment on above: Performed By: #### 2 226570 #### MIKE Rodriguez[address] [address] Hemoglobin (Bld) [Mass/Vol] 13.6 g/dL Normal 13.5-18.0 [facility] Comment on above: Performed By: #### 2 610633 #### MIKE Rodriguez[address] [address] MCH (RBC) [Entitic mass] 31.6 pg High 27.0-31.0 [facility] Comment on above: Performed By: #### 2 569782 #### MIKE Rodriguez[address] [address] MCHC (RBC) [Mass/Vol] 33.7 g/dL Normal 33.0-37.0 [facility] Comment on above: Performed By: #### 2 863442 #### MIKE Rodriguez[address] [address] MCV (RBC) [Entitic vol] 93.8 fL Normal 78.0-100.0 [facility] Comment on above: Performed By: #### 2 621967 #### MIKE Rodriguez[address] [address] Platelet mean volume (Bld) [Entitic vol] 10.2 fL Normal 7.4-11.0 [facility] Comment on above: Performed By: #### 2 131812 #### MIKE Rodriguez[address] [address] Platelets (Bld) [#/Vol] 218 E3/mcL Normal 130-400 [facility] Comment on above: Performed By: #### 2 341337 #### MIKEAnabelle [email or web address] [address] [place] [address] RBC (Bld) [#/Vol] 4.31 E6/mcL Normal 3.90-6.10 [facility] Comment on above: Performed By: #### 2 365345 #### MIKE Zazueta [facility] [place] [address] WBC (Bld) [#/Vol] 8.1 E3/mcL Normal 3.6-11.[address] [facility] Comment on above: Performed By: #### 2 509955 #### MIKE [facility] [place] [address] CMPon 07-04-2019 Albumin [Mass/Vol] 4.2 g/dL Normal 3.4-5.0 [facility] Comment on above: Performed By: #### 2 402496 #### MIKE Rodriguez[address] [address] Albumin/Globulin [Mass ratio] 1.8 {ratio} Normal 1.1-1.9 [facility] Comment on above: Performed By: #### 2 205721 #### MIKE Zazueta [address] [place] [address] Alk Phos 81 Int._Unit/L Normal 33-136 [facility] Comment on above: Performed By: #### 2 446130 #### MIKE [address] [address] ALT [Catalytic activity/Vol] 15 Int._Unit/L Normal 10-52 [facility] Comment on above: Performed By: #### 2 529056 #### MIKE Zazueta [facility] [place] [address] Anion gap [Moles/Vol] 12 mmol/L Normal 10-20 [facility] Comment on above: Performed By: #### 2 998992 #### MIKEAnabelle Zazueta [facility] [place] [address] AST [Catalytic activity/Vol] 18 Int._Unit/L Normal 9-39 [facility] Comment on above: Performed By: #### 2 696558 #### MIKE [address] [place] [address] Bili Total 0.35 mg/dL Normal 0.00-1.20 [facility] Comment on above: Performed By: #### 2 323611 #### MI[facility] [employer] [address] [place] [address] Calcium [Mass/Vol] 9.5 mg/dL Normal 8.6-10.3 [facility] Comment on above: Performed By: #### 2 505545 #### MIKE [employer] [address] [place] [address] Chloride [Moles/Vol] 108 mmol/L High 98-107 [facility] Comment on above: Performed By: #### 2 670366 #### MIKE [employer] [address] [place] [address] CO2 [Moles/Vol] 27.0 mmol/L Normal 21.0-32.0 [facility] Comment on above: Performed By: #### 2 889005 #### MIKE [employer] [address] [place] [address] Creatinine [Mass/Vol] 1.0 mg/dL Normal 0.5-1.3 [facility] Comment on above: Performed By: #### 2 963629 #### [facility] [employer] [address] [place] [address] Globulin (S) [Mass/Vol] 2.0 g/dL Normal 2.0-4.0 [facility] Comment on above: Performed By: #### 2 186621 #### [facility] [employer] [address] [place] [address] Glucose [Mass/Vol] 159 mg/dL High 70-99 [facility] Comment on above: Performed By: #### 2 986832 #### [facility] [employer] [address] [place] [address] Potassium [Moles/Vol] 3.7 mmol/L Normal 3.5-5.3 [facility] Comment on above: Performed By: #### 2 898078 #### [facility] [employer] [address] [place] [address] Protein [Mass/Vol] 6.5 g/dL Normal 6.4-8.2 [facility] Comment on above: Performed By: #### 2 228078 #### [facility] [employer] [address] [place] [address] Sodium [Moles/Vol] 143 mmol/L Normal 136-145 [facility] Comment on above: Performed By: #### 2 918141 #### MIKE RodriguezChem [facility] [place] [address] Urea nitrogen [Mass/Vol] 19 mg/dL Normal 6-23 [facility] Comment on above: Performed By: #### 2 849255 #### MIKE [employer] [address] [place] [address] Urea nitrogen/Creatinine [Mass ratio] 19.0 ratio Normal 5.4-30.0 [facility] Comment on above: Performed By: #### 2 955710 #### MI[place] [address] [place] [address] [id number] 07-04-2019 HbA1c (Bld) [Mass fraction] 8.3 % High 4.0-6.3 [facility] Comment on above: Performed By: #### 2 813234 #### MIKE [employer] [address] [place] [address] eGFRon 07-04-2019 GFR/1.73 sq M predicted among non-blacks MDRD (S/P/Bld) [Vol rate/Area] mL/min/{1.73_m2} Normal [facility] Comment on above: Order Comment: Order added by Discern Expert. Performed By: #### 2 160230 #### MIKE RodriguezChem [facility] [place] [address] Auto Diffon 03-03-2019 Basophils (Bld) [#/Vol] 0.1 E3/mcL Normal 0.0-0.2 [facility] Comment on above: Order Comment: Order Added by Discern Expert. Performed By: #### 2 762314 #### MIKE RodriguezHemo [facility] [place] [address] Basophils/100 WBC (Bld) 1.0 % Normal 0.0-2.0 [facility] Comment on above: Order Comment: Order Added by Discern Expert. Performed By: #### 2 887592 #### MIKE RemHemo [address] [place] [address] Eos Absolute 0.2 E3/mcL Normal 0.0-0.7 [facility] Comment on above: Order Comment: Order Added by Discern Expert. Performed By: #### 2 479995 #### MIKE RemHemo [address] [place] [address] Eosinophils/100 WBC (Bld) 2.6 % Normal 0.0-11.0 [facility] Comment on above: Order Comment: Order Added by Discern Expert. Performed By: #### 2 641720 #### MIKE RemHemo [address] [place] [address] Lymphocytes (Bld) [#/Vol] 2.0 E3/mcL Normal 1.2-3.4 [facility] Comment on above: Order Comment: Order Added by Discern Expert. Performed By: #### 2 582865 #### MIKE RemHemo [address] [place] [address] Lymphocytes/100 WBC (Bld) 26.7 % Normal 20.0-55.0 [facility] Comment on above: Order Comment: Order Added by Discern Expert. Performed By: #### 2 343764 #### MIKE RemHemo [address] [place] [address] [place] Absolute 0.7 E3/mcL Normal 0.0-0.7 [facility] Comment on above: Order Comment: Order Added by Discern Expert. Performed By: #### 2 729381 #### MIKE RemHemo [address] [place] [address] Monocytes/100 WBC (Bld) 9.4 % Normal 0.0-10.0 [facility] Comment on above: Order Comment: Order Added by Discern Expert. Performed By: #### 2 889558 #### MIKE RemHemo [address] [place] [address] Neutro Absolute 4.5 E3/mcL Normal 1.4-6.5 [facility] Comment on above: Order Comment: Order Added by Discern Expert. Performed By: #### 2 932178 #### MIKE RemHemo [address] [place] [address] Neutro Auto 60.3 % Normal 37.0-75.0 [facility] Comment on above: Order Comment: Order Added by Discern Expert. Performed By: #### 2 763203 #### MIKE RodriguezHemo [address] [place] [address] CBC w/ Auto Diffon Erythrocyte distribution width (RBC) [Ratio] 13.2 % Normal 11.5-14.5 [facility] Comment on above: Performed By: #### 2 943680 #### MIKE RodriguezHemo [address] [place] [address] Hematocrit (Bld) [Volume fraction] 41.7 % Low 42.0-52.0 [facility] Comment on above: Performed By: #### 2 314121 #### MIKE RemHemo [address] [place] [address] Hemoglobin (Bld) [Mass/Vol] 14.1 g/dL Normal 13.5-18.0 [facility] Comment on above: Performed By: #### 2 918108 #### MIKE RodriguezHemo [address] [place] [address] MCH (RBC) [Entitic mass] 31.5 pg High 27.0-31.0 [facility] Comment on above: Performed By: #### 2 724748 #### MIKE RemHemo [address] [place] [address] MCHC (RBC) [Mass/Vol] 33.7 g/dL Normal 33.0-37.0 [facility] Comment on above: Performed By: #### 2 488036 #### MIKE RodriguezHemo [address] [place] [address] MCV (RBC) [Entitic vol] 93.5 fL Normal 78.0-100.0 [facility] Comment on above: Performed By: #### 2 710942 #### MIKE RemHemo [address] [place] [address] Platelet mean volume (Bld) [Entitic vol] 10.0 fL Normal 7.4-11.0 [facility] Comment on above: Performed By: #### 2 097416 #### MIKE RemHemo [address] [place] [address] Platelets (Bld) [#/Vol] 218 E3/mcL Normal 130-400 [facility] Comment on above: Performed By: #### 2 565720 #### MIKE RemHemo [address] [place] [address] RBC (Bld) [#/Vol] 4.46 E6/mcL Normal 3.90-6.10 [facility] Comment on above: Performed By: #### 2 886227 #### MIKE RemHemo [address] [place] [address] WBC (Bld) [#/Vol] 7.5 E3/mcL Normal 3.6-11.[address] [facility] Comment on above: Performed By: #### 2 442366 #### MIKE RemHemo [address] [place] [address] CMPon 03-03-2019 Albumin [Mass/Vol] 4.1 g/dL Normal 3.4-5.0 [facility] Comment on above: Performed By: #### 2 151777 #### MIKE [employer] [address] [place], [place] [address] Albumin/Globulin [Mass ratio] 1.6 {ratio} Normal 1.1-1.9 [facility] Comment on above: Performed By: #### 2 964469 #### MIKE [employer] [address] [place] [address] Alk Phos 83 Int._Unit/L Normal 33-136 [facility] Comment on above: Performed By: #### 2 912738 #### MIKE [employer] [address] [place] [address] 65292 ALT [Catalytic activity/Vol] 13 Int._Unit/L Normal 10-52 [facility] Comment on above: Performed By: #### 2 [id number] #### [employer]KE [employer] [address] [place] [address] 92724 Anion gap [Moles/Vol] 9 mmol/L Low 10-20 [facility] Comment on above: Performed By: #### 2 [id number] #### [employer] [address] [place] [address] 56975 AST [Catalytic activity/Vol] 16 Int._Unit/L Normal 9-39 [facility] Comment on above: Performed By: #### 2 [id number] #### [employer] [address] [place] [address] 95464 Bili Total 0.55 mg/dL Normal 0.00-1.20 [facility] Comment on above: Performed By: #### 2 [id number] #### [facility] [employer] [address] [place] [address] 75121 Calcium [Mass/Vol] 9.3 mg/dL Normal 8.6-10.3 [facility] Comment on above: Performed By: #### 2 [id number] #### [employer] [address] [place] [address] 85543 Chloride [Moles/Vol] 105 mmol/L Normal 98-107 [facility] Comment on above: Performed By: #### 2 735110 #### [employer] [address] [place] [address] 14366 CO2 [Moles/Vol] 28.0 mmol/L Normal 21.0-32.0 [facility] Comment on above: Performed By: #### 2 [id number] #### [facility] [employer] [address] [place] [address] 42519 Creatinine [Mass/Vol] 1.0 mg/dL Normal 0.5-1.3 [facility] Comment on above: Performed By: #### 2 [id number] #### [employer] [address] [place] [address] 82595 Globulin (S) [Mass/Vol] 3.0 g/dL Normal 2.0-4.0 [facility] Comment on above: Performed By: #### 2 [id number] #### [employer] [address] [place] [address] 13168 Glucose [Mass/Vol] 273 mg/dL High 70-99 [facility] Comment on above: Performed By: #### 2 134066 #### [employer] [address] [place] [address] 58024 Potassium [Moles/Vol] 4.2 mmol/L Normal 3.5-5.3 [facility] Comment on above: Performed By: #### 2 116912 #### [employer] [address] [place] [address] 25339 Protein [Mass/Vol] 6.6 g/dL Normal 6.4-8.2 [facility] Comment on above: Performed By: #### 2 [id number] #### [employer] [address] [place] [address] Sodium [Moles/Vol] 138 mmol/L Normal 136-145 [facility] Comment on above: Performed By: #### 2 201790 #### [employer] [address] [place] [address] Urea nitrogen [Mass/Vol] 20 mg/dL Normal 6-23 [facility] Comment on above: Performed By: #### 2 [id number] #### [employer] [address] [place] [address] Urea nitrogen/Creatinine [Mass ratio] 20.0 ratio Normal 5.4-30.0 [facility] Comment on above: Performed By: #### 2 826697 #### [employer] [address] [place] [address] 99961 Free T4on 03-03-2019 Free T4 [Mass/Vol] 0.98 ng/dL Normal 0.58-1.64 [facility] Comment on above: Performed By: #### 2 072706 #### [employer] [address] [place] [address] 52297 [id number] 03-03-2019 HbA1c (Bld) [Mass fraction] 8.4 % High 4.0-6.3 [facility] Comment on above: Performed By: #### 2 [id number] #### [employer] [address] [place] [address] Lipid Profileon 03-03-2019 Cholesterol [Mass/Vol] 164 mg/dL Normal 0-199 [facility] Comment on above: Result Comment: TOTA L CHOLEESTEROL: <200 NORMAL 200 - 239 BORDERLINE HIGH >240 HIGH Performed By: #### 2 [id number] #### [employer] [address] [place] [address] Cholesterol in HDL [Mass/Vol] 53 mg/dL Normal 40-60 [facility] Comment on above: Performed By: #### 2 088173 #### [employer] [address] [place] [address] Cholesterol in LDL [Mass/Vol] 98 mg/dL Normal 0-130 [facility] Comment on above: Result Comment: <100 OPTIMAL 100-129 NEAR / ABOVE OPTIMAL 130-159 BORDERLINE HIGH 160-189 HIGH >190 VERY HIGH CALC LDL NOT VALID WHEN TRIGLYCERIDE IS >400 MG/DL Performed By: #### 2 [id number] #### MIKE Jascha [facility] [place] [address] Cholesterol in VLDL [Mass/Vol] 13 mg/dL Normal 0-40 [facility] Comment on above: Performed By: #### 2 708718 #### MIKE Jascha [facility] [place] [address] Triglyceride [Mass/Vol] 66 mg/dL Normal 0-149 [facility] Comment on above: [...] 200 - 499 Performed By: #### 2 [id number] #### MIKE Jascha [address] [place] [address] 76853 Microalb/Creat Ratioon 03-03 Creatinine [Mass/Vol] 111.0 mg/dL Normal 20.0-300.0 [facility] Comment on above: Performed By: #### 1 [id number] #### MIKE [employer] [address] [place] [address] 01850 Creatinine [Mass/Vol] 95 ug/mg High 0-30 [facility] Comment on above: Performed By: #### 1 [id number] #### [employer]KE [employer] [address] [place] [address] 82694 Ur Microalbumin 10.6 mg/dL High 0.0-1.9 [facility] Comment on above: Performed By: #### 1 [id number] #### [employer]KE [employer] [address] [place] [address] 63469 TSHon 03-03-2019 TSH Qn 0.52 mcIU/mL Normal 0.30-5.60 [facility] Comment on above: Performed By: #### 2 503729 #### MIKE Jascha [address] [place] [address] 27020 eGFRon 03-03-2019 GFR/1.73 sq M predicted among non-blacks MDRD (S/P/Bld) [Vol rate/Area] mL/min/{1.73_m2} Normal [facility] Comment on above: Order Comment: Order added by Discern Expert. Performed By: #### 1 [id number] #### MIKE Marbin [address] [place] [id number] XR Spine Lumbosacral Complet e w/ Bendingon 02-08-2019 XR Spine Lumbosacral Complete w/ Bending Exam Date/Time: 02/08/2019 11:16 EDT Reason for Exam: M54.16 Report STUDY: XR Spine Lumbosacral Complete w/ Bending; 02/08/2019 11:16 am INDICATION: M54.16. COMPARISON: 08/12/2018 ACCESSION NUMBER(S): [id number] ORDERING CLINICIAN: Yamilex Muro FINDINGS: 8 views of the lumbar spine including supine and standing AP, lateral and lateral flexion and extension views were obtained. There is no acute fracture identified. There is mild retrolisthesis of L2 on L3 and of L3 on L4. Jkbl-fl-[id number] disc space narrowing and marginal osteophyte formation [...] by: Jaret Walker MD Technologist: GEE Normal [facility] CMPon 11-02-2018 Albumin [Mass/Vol] 4.2 g/dL Normal 3.4-5.0 [facility] Comment on above: Performed By: #### 2 [id number] #### MIKE Zazueta [address] [place] [id number] Albumin/Globulin [Mass ratio] 1.8 {ratio} Normal 1.1-1.9 [facility] Comment on above: Performed By: #### 2 [id number] #### MIKE Zazueta [address] [place] [address] Alk Phos 98 Int._Unit/L Normal 33-136 [facility] Comment on above: Performed By: #### 2 131695 #### MIKE [employer] [facility] [place] [address] ALT [Catalytic activity/Vol] 18 Int._Unit/L Normal 10-52 [facility] Comment on above: Performed By: #### 2 [id number] #### [employer] [facility] [place] [address] Anion gap [Moles/Vol] 10 mmol/L Normal 10-20 [facility] Comment on above: Performed By: #### 2 900746 #### MIKEAnabelle [employer] [facility] [place] [address] AST [Catalytic activity/Vol] 17 Int._Unit/L Normal 9-39 [facility] Comment on above: Performed By: #### 2 608566 #### [employer] [facility] [place] [address] Bili Total 0.39 mg/dL Normal 0.00-1.20 [facility] Comment on above: Performed By: #### 2 [id number] #### [employer] [address] [place] [address] 84674 Calcium [Mass/Vol] 9.7 mg/dL Normal 8.6-10.3 [facility] Comment on above: Performed By: #### 2 164266 #### [employer] [address] [place] [address] Chloride [Moles/Vol] 106 mmol/L Normal 98-107 [facility] Comment on above: Performed By: #### 2 371267 #### [employer] [address] [place] [address] CO2 [Moles/Vol] 27.0 mmol/L Normal 21.0-32.0 [facility] Comment on above: Performed By: #### 2 192404 #### [employer] [address] [place] [address] Creatinine [Mass/Vol] 1.2 mg/dL Normal 0.5-1.3 [facility] Comment on above: Performed By: #### 2 737007 #### [employer] [address] [place] [address] Globulin (S) [Mass/Vol] 2.0 g/dL Normal 2.0-4.0 [facility] Comment on above: Performed By: #### 2 665461 #### [employer] [address] [place] [address] Glucose [Mass/Vol] 307 mg/dL High 70-99 [facility] Comment on above: Performed By: #### 2 766797 #### [employer] [address] [place] [address] Potassium [Moles/Vol] 3.9 mmol/L Normal 3.5-5.3 [facility] Comment on above: Performed By: #### 2 647150 #### [employer] [address] [place] [address] 79035 Protein [Mass/Vol] 6.5 g/dL Normal 6.4-8.2 [facility] Comment on above: Performed By: #### 2 976006 #### [employer] [address] [place] [address] 41026 Sodium [Moles/Vol] 139 mmol/L Normal 136-145 [facility] Comment on above: Performed By: #### 2 314269 #### [employer] [address] [place] [address] 02946 Urea nitrogen [Mass/Vol] 23 mg/dL Normal 6-23 [facility] Comment on above: Performed By: #### 2 529843 #### [employer] [address] [place] [address] 47443 Urea nitrogen/Creatinine [Mass ratio] 19.2 ratio Normal 5.4-30.0 [facility] Comment on above: Performed By: #### 2 139271 #### [employer] [address] [place] [address] [id number] 11-02-2018 HbA1c (Bld) [Mass fraction] 8.4 % High 4.0-6.3 [facility] Comment on above: Performed By: #### 3 [id number] #### MIKE Chemistry Manual Subsection [address] [place] [address] 06351 eGFRon 11-02-2018 GFR/1.73 sq M predicted among non-blacks MDRD (S/P/Bld) [Vol rate/Area] mL/min/{1.73_m2} Normal [facility] Comment on above: Order Comment: Order added by Discern Expert. Performed By: #### 1 [id number] #### [employer]KE [employer] [facility] [place] [address] XR Spine Lumbar w/ Obliqueso n 08-13-2018 XR Spine Lumbar w/ Obliques Exam Date/Time: 08/12/2018 14:38 EDT Reason for Exam: low back pain with left sided sciatica Report STUDY: XR Spine Lumbar w/ Obliques; 08/12/2018 2:38 pm INDICATION: low back pain with left sided sciatica. COMPARISON: None. ACCESSION NUMBER(S): [id number] ORDERING CLINICIAN: Nancy Mirza FINDINGS: Five views of the lumbar spine including AP, lateral, lateral cone-down and bilateral oblique views were obtained. There is no acute fracture identified. There is mild retrolisthesis of L2 on L3 and of L3 on L4. Iami-wi-[id number] disc space narrowing and marginal osteophyte formation [...] by: Jaret Walker MD Technologist: KAVITA Normal [facility] Carotid Duplexon 02-09-2018 Carotid Duplex Non-Invasive Vascular Patient: [facility] Rec#: [id number] (Age): 1945(72y) Study Date: 02/09/2018 Room#: Type: Sex: M Reading: AALIYAH Reading: Flo Abdi DO, RPVI Referring: NANCY MIRZA JOHN Remote Pilot Operator: Christie Trinidad Procedure Info: [id number]... Study Quality: Carotid Duplex: adequate Diagnosis: I65.23 [...] Carotid Duplex Interface, [facility] 02/09/2018 4:37 PM EDT Non-Invasive Vascular Patient: [facility] Rec#: [id number] (Age): 1945(72y) Study Date: 02/09/2018 Room#: Type: Sex: M Reading: AALIYAH Reading: Flo Abdi DO, RPVI Referring: NANCY MIRZA JOHN Remote Pilot Operator: Christie Trinidad Procedure Info: [id number]... Study Quality: Carotid Duplex: adequate Diagnosis: I65.23 [...] DO, RPVI Invalid Interpretation Code [facility] [facility] Vital Signs Date Time Vital Sign Value Performing Clinician Facility 05-09-2025 14:42-0400 Heart rate 60 /min Ryley Jeter MD Work Phone: [facility] 05-09-2025 14:28-0400 Body height 170.18 cm Ryley Jeter MD Work Phone: [facility] 05-09-2025 14:28-0400 Body weight 67.4 kg Ryley Jeter MD Work Phone: [facility] 05-09-2025 14:26-0400 Inhaled oxygen flow rate 3 L/min Ryley Jeter MD Work Phone: [facility] 05-09-2025 13:45-0400 SaO2% (BldA) [Mass fraction] 99 % Ryley Jeter MD Work Phone: [facility] 05-09-2025 11:09-0400 Respiratory rate 16 /min Ryley Jeter MD Work Phone: [facility] 05-09-2025 09:45-0400 Body temperature 97.9 [degF] Ryley Jeter MD Work Phone: [facility] 05-09-2025 09:45-0400 Diastolic blood pressure 96 mm[Hg] Ryley Jeter MD Work Phone: [facility] 05-09-2025 09:45-0400 Systolic blood pressure 133 mm[Hg] Ryley Jeter MD Work Phone: [facility] 05-09-2025 05:43-0400 Body mass index (BMI) [Ratio] 23.3 kg/m2 Ryley Jeter MD Work Phone: [facility] 05-06-2025 06:47-0400 Inhaled oxygen concentration 30 % Ryley Jeter MD Work Phone: [facility] 05-05-2025 22:00-0400 Body temperature 97.1 [degF] Ryley Jeter MD Work Phone: [facility] 05-05-2025 22:00-0400 Diastolic blood pressure 59 mm[Hg] Ryley Jeter MD Work Phone: [facility] 05-05-2025 22:00-0400 Heart rate 76 /min Ryley Jeter MD Work Phone: [facility] 05-05-2025 22:00-0400 Respiratory rate 15 /min Ryley Jeter MD Work Phone: 3(552)710-6[address] [place] [address] 05-05-2025 22:00-0400 SaO2% (BldA) [Mass fraction] 96 % Ryley Jeter MD Work Phone: [facility] 05-05-2025 22:00-0400 Systolic blood pressure 133 mm[Hg] Ryley Jeter MD Work Phone: [facility] 05-05-2025 20:14-0400 Inhaled oxygen concentration 50 % Ryley Jeter MD Work Phone: [facility] 05-05-2025 19:39-0400 Body height 167.64 cm Ryley Jeter MD Work Phone: [facility] 05-05-2025 19:39-0400 Body mass index (BMI) [Ratio] 23.6 kg/m2 Ryley Jeter MD Work Phone: [facility] 05-05-2025 19:39-0400 Body weight 66.2 kg Ryley Jeter MD Work Phone: [facility] 05-01-2025 11:06-0400 Body height 170.2 cm Maricruz BERMAN DNP Work Phone: [facility] 05-01-2025 11:06-0400 Body mass index (BMI) [Ratio] 22.12 kg/m2 Maricruz Albert JOIE BERMAN Work Phone: [facility] 05-01-2025 11:06-0400 Body weight 64.05 kg Maricruz Albert APRNMonserratJOIE HUDSON Work Phone: [facility] 05-01-2025 11:06-0400 Diastolic blood pressure 68 mm[Hg] Maricruz Juanito BERMAN DNP Work Phone: [facility] 05-01-2025 11:06-0400 Heart rate 47 /min Maricruz Juanito BERMAN DNP Work Phone: [facility] 05-01-2025 11:06-0400 Systolic blood pressure 142 mm[Hg] Maricruz Juanito BERMAN DNP Work Phone: [facility] 04-22-2025 13:43-0400 Body temperature 97.5 [degF] Ryley Jeter MD Work Phone: [facility] 04-22-2025 13:43-0400 Diastolic blood pressure 89 mm[Hg] Ryley Jeter MD Work Phone: [facility] 04-22-2025 13:43-0400 Heart rate 112 /min Ryley Jeter MD Work Phone: [facility] 04-22-2025 13:43-0400 Inhaled oxygen flow rate 2 L/min Ryley Jeter MD Work Phone: [facility] 04-22-2025 13:43-0400 Respiratory rate 18 /min Ryley Jeter MD Work Phone: [facility] 04-22-2025 13:43-0400 SaO2% (BldA) [Mass fraction] 100 % Ryley Jeter MD Work Phone: [facility] 04-22-2025 13:43-0400 Systolic blood pressure 138 mm[Hg] Ryley Jeter MD Work Phone: [facility] 04-22-2025 05:31-0400 Body mass index (BMI) [Ratio] 23.6 kg/m2 Ryley Jeter MD Work Phone: [facility] 04-22-2025 05:31-0400 Body weight 66.45 kg Ryley Jeter MD Work Phone: [facility] 04-19-2025 11:24-0400 Body height 167.64 cm Ryley Jeter MD Work Phone: [facility] 04-19-2025 09:21-0400 Inhaled oxygen concentration 45 % Ryley Jeter MD Work Phone: [facility] 04-19-2025 03:00-0400 Body temperature 97.7 [degF] Ryley Jeter MD Work Phone: [facility] 04-19-2025 03:00-0400 Diastolic blood pressure 54 mm[Hg] Ryley Jeter MD Work Phone: [facility] 04-19-2025 03:00-0400 Heart rate 97 /min Ryley Jeter MD Work Phone: [facility] 04-19-2025 03:00-0400 Inhaled oxygen flow rate 50 L/min Ryley Jeter MD Work Phone: [facility] 04-19-2025 03:00-0400 Respiratory rate 16 /min Ryley Jeter MD Work Phone: [facility] 04-19-2025 03:00-0400 SaO2% (BldA) [Mass fraction] 98 % Ryley Jeter MD Work Phone: [facility] 04-19-2025 03:00-0400 Systolic blood pressure 134 mm[Hg] Ryley Jeter MD Work Phone: [facility] 04-19-2025 00:50-0400 Inhaled oxygen concentration 50 % Ryley Jeter MD Work Phone: [facility] 04-19-2025 00:00-0400 Body height 170.18 cm Ryley Jeter MD Work Phone: [facility] 04-19-2025 00:00-0400 Body mass index (BMI) [Ratio] 24.4 kg/m2 Ryley Jeter MD Work Phone: [facility] 04-19-2025 00:00-0400 Body weight 70.76 kg Ryley Jeter MD Work Phone: [facility] 04-10-2025 15:10-0400 Diastolic blood pressure 78 mm[Hg] Ryley Jeter MD Work Phone: 9(992)[phone] [address] 04-10-2025 15:10-0400 Heart rate 80 /min Ryley Jeter MD Work Phone: 9(178)690-714524 [address] 04-10-2025 15:10-0400 Systolic blood pressure 144 mm[Hg] Ryley Jeter MD Work Phone: 9(764)[phone] [place] [address] 04-10-2025 15:00-0400 Body temperature 98.1 [degF] Ryley Jeter MD Work Phone: [facility] 04-10-2025 15:00-0400 SaO2% (BldA) [Mass fraction] 95 % Ryley Jeter MD Work Phone: [facility] 04-10-2025 13:39-0400 Respiratory rate 16 /min Ryley Jeter MD Work Phone: [facility] 04-10-2025 09:38-0400 Inhaled oxygen flow rate 2 L/min Ryley Jeter MD Work Phone: [facility] 04-10-2025 09:38-0400 SaO2% (BldA) [Mass fraction] 98 % Ryley Jeter MD Work Phone: [facility] 04-10-2025 08:45-0400 Body temperature 97.9 [degF] Ryley Jeter MD Work Phone: 8(003)[phone] [address] 04-10-2025 03:42-0400 Body mass index (BMI) [Ratio] 22.3 kg/m2 Ryley Jeter MD Work Phone: [facility] 04-10-2025 03:42-0400 Body weight 64.7 kg Ryley Jeter MD Work Phone: [facility] 04-10-2025 00:32-0400 Inhaled oxygen concentration 30 % Ryley Jeter MD Work Phone: [facility] 04-09-2025 14:07-0400 Body height 170.18 cm Ryley Jeter MD Work Phone: [facility] 04-03-2025 05:40-0400 Heart rate 110 /min Ryley Jeter MD Work Phone: [facility] 04-03-2025 05:40-0400 Inhaled oxygen concentration 30 % Ryley Jeter MD Work Phone: 7(008)[phone] [place] [address] 04-03-2025 05:40-0400 Respiratory rate 21 /min Ryley Jeter MD Work Phone: [facility] 04-03-2025 05:40-0400 SaO2% (BldA) [Mass fraction] 98 % Ryley Jeter MD Work Phone: [facility] 04-03-2025 05:17-0400 Body height 170.18 cm Ryley Jeter MD Work Phone: [facility] 04-03-2025 05:17-0400 Body mass index (BMI) [Ratio] 21.2 kg/m2 Ryley Jeter MD Work Phone: [facility] 04-03-2025 05:17-0400 Body temperature 98 [degF] Ryley Jeter MD Work Phone: [facility] 04-03-2025 05:17-0400 Body weight 61.5 kg Ryley Jeter MD Work Phone: [facility] 04-03-2025 05:17-0400 Diastolic blood pressure 77 mm[Hg] Ryley Jeter MD Work Phone: [facility] 04-03-2025 05:17-0400 Systolic blood pressure 167 mm[Hg] Ryley Jeter MD Work Phone: [facility] 04-03-2025 03:00-0400 Inhaled oxygen flow rate 4 L/min Ryley Jeter MD Work Phone: [facility] 03-12-2025 13:50-0400 Body mass index (BMI) [Ratio] 21.9 kg/m2 Patyavinash Ortega MUSEUM SPECIALIST Work Phone: [facility] 03-12-2025 13:50-0400 Body weight 63.41 kg Paty Ortega [employer]USEUM SPECIALIST Work Phone: [facility] 03-12-2025 13:50-0400 Diastolic blood pressure 61 mm[Hg] Paty Ortega [employer] SPECIALIST Work Phone: [facility] 03-12-2025 13:50-0400 Heart rate 69 /min Paty Ortega [employer]IST Work Phone: [facility] 03-12-2025 13:50-0400 Systolic blood pressure 166 mm[Hg] Patyavinash Ortega [employer]UM SPECIALIST Work Phone: [facility] 03-09-2025 09:42-0400 Body height 170.2 cm Woo Small MD Work Phone: [facility] 03-09-2025 09:42-0400 Body mass index (BMI) [Ratio] 21.9 kg/m2 Woo Small MD Work Phone: [facility] 03-09-2025 09:42-0400 Body weight 63.41 kg Woo Small MD Work Phone: [facility] 03-09-2025 09:42-0400 Diastolic blood pressure 54 mm[Hg] Woo Small MD Work Phone: [facility] 03-09-2025 09:42-0400 Heart rate 73 /min Woo Small MD Work Phone: [facility] 03-09-2025 09:42-0400 SaO2% (BldA) [Mass fraction] 98 % Woo Small MD Work Phone: [facility] 03-09-2025 09:42-0400 Systolic blood pressure 172 mm[Hg] Woo Small MD Work Phone: [facility] 02-26-2025 13:01-0400 Body height 172.7 cm Ayanna Albert DO Work Phone: [facility] 02-26-2025 13:01-0400 Body mass index (BMI) [Ratio] 21.47 kg/m2 Ayanna Albert DO Work Phone: [facility] 02-26-2025 13:01-0400 Body weight 64.05 kg Ayanna Albert DO Work Phone: [facility] 02-26-2025 13:01-0400 Diastolic blood pressure 68 mm[Hg] Ayanna Albert DO Work Phone: [facility] 02-26-2025 13:01-0400 Heart rate 72 /min Ayanna Albert DO Work Phone: [facility] 02-26-2025 13:01-0400 Systolic blood pressure 158 mm[Hg] Ayanna Young DO Work Phone: [facility] 11-14-2024 10:44-0500 Diastolic blood pressure 61 mm[Hg] Woo Small MD Work Phone: [facility] 11-14-2024 10:44-0500 Heart rate 57 /min Woo Small MD Work Phone: [facility] 11-14-2024 10:44-0500 SaO2% (BldA) [Mass fraction] 96 % Woo Small MD Work Phone: [facility] 11-14-2024 10:44-0500 Systolic blood pressure 185 mm[Hg] Woo Small MD Work Phone: [facility] 11-14-2024 10:37-0500 Body height 170.2 cm Woo Small MD Work Phone: [facility] 11-14-2024 10:37-0500 Body mass index (BMI) [Ratio] 23.57 kg/m2 Woo Small MD Work Phone: [facility] 11-14-2024 10:37-0500 Body weight 68.27 kg Woo Small MD Work Phone: [facility] 11-13-2024 11:16-0500 Body mass index (BMI) [Ratio] 23.45 kg/m2 Paty Ortega MUSEUM SPECIALIST Work Phone: [facility] 11-13-2024 11:16-0500 Body weight 67.9 kg Paty Ortega MUSEUM SPECIALIST Work Phone: [facility] 11-13-2024 11:16-0500 Diastolic blood pressure 51 mm[Hg] Paty Ortega MUSE[employer] SPECIALIST Work Phone: [facility] 11-13-2024 11:16-0500 Heart rate 71 /min Paty Ortega MUSEUM SPECIALIST Work Phone: [facility] 11-13-2024 11:16-0500 Systolic blood pressure 107 mm[Hg] Paty Ortega M[employer] SPECIALIST Work Phone: [facility] 11-09-2024 10:42-0500 Diastolic blood pressure 64 mm[Hg] Kristy Parker MD Work Phone: [facility] 11-09-2024 10:42-0500 Heart rate 58 /min Kristy Parker MD Work Phone: [facility] 11-09-2024 10:42-0500 Systolic blood pressure 160 mm[Hg] Kristy Parker MD Work Phone: [facility] 11-09-2024 10:32-0500 Body height 170.2 cm Kristy Parker MD Work Phone: [facility] 11-09-2024 10:32-0500 Body mass index (BMI) [Ratio] 23.18 kg/m2 Kristy Parker MD Work Phone: [facility] 11-09-2024 10:32-0500 Body weight 67.13 kg Kristy Parker MD Work Phone: [facility] 11-07-2024 09:54-0500 Diastolic blood pressure 61 mm[Hg] Brock Groves MD Work Phone: [facility] 11-07-2024 09:54-0500 Systolic blood pressure 143 mm[Hg] Brock Groves MD Work Phone: [facility] 11-07-2024 09:51-0500 Body height 170.2 cm Brock Groves MD Work Phone: [facility] 11-07-2024 09:51-0500 Body mass index (BMI) [Ratio] 23.02 kg/m2 Brock Groves MD Work Phone: [facility] 11-07-2024 09:51-0500 Body temperature 97.39 [degF] Brock Groves MD Work Phone: [facility] 11-07-2024 09:51-0500 Body weight 66.68 kg Brock Groves MD Work Phone: [facility] 11-07-2024 09:51-0500 Heart rate 63 /min Brock Groves MD Work Phone: [facility] 11-07-2024 09:51-0500 SaO2% (BldA) [Mass fraction] 100 % Brock Groves MD Work Phone: [facility] 10-28-2024 11:06-0500 Diastolic blood pressure 51 mm[Hg] Nidia Garay MD Work Phone: [facility] 10-28-2024 11:06-0500 Heart rate 68 /min Nidia Garay MD Work Phone: [facility] 10-28-2024 11:06-0500 Respiratory rate 14 /min Nidia Garay MD Work Phone: [facility] 10-28-2024 11:06-0500 SaO2% (BldA) [Mass fraction] 94 % Nidia Garay MD Work Phone: [facility] 10-28-2024 11:06-0500 Systolic blood pressure 153 mm[Hg] Nidia Garay MD Work Phone: [facility] 10-28-2024 07:24-0500 Body temperature 97.59 [degF] Nidia Garay MD Work Phone: [facility] 10-28-2024 05:11-0500 Body mass index (BMI) [Ratio] 22.44 kg/m2 Nidia Garay MD Work Phone: [facility] 10-28-2024 05:11-0500 Body weight 65 kg Nidia Garay MD Work Phone: [facility] 10-27-2024 16:36-0500 Body height 170.2 cm Nidia Garay MD Work Phone: [facility] 10-27-2024 14:18-0500 SaO2% (BldA) [Mass fraction] 97.3 % Nidia Garay MD Work Phone: [facility] 10-18-2024 13:46-0500 Diastolic blood pressure 61 mm[Hg] Woo Small MD Work Phone: [facility] 10-18-2024 13:46-0500 Heart rate 67 /min Woo Small MD Work Phone: [facility] 10-18-2024 13:46-0500 SaO2% (BldA) [Mass fraction] 100 % Woo Small MD Work Phone: [facility] 10-18-2024 13:46-0500 Systolic blood pressure 103 mm[Hg] Woo Small MD Work Phone: [facility] 10-18-2024 13:27-0500 Body height 172.7 cm Woo Small MD Work Phone: [facility] 10-18-2024 13:27-0500 Body mass index (BMI) [Ratio] 22.52 kg/m2 Woo Small MD Work Phone: [facility] 10-18-2024 13:27-0500 Body weight 67.18 kg Woo Small MD Work Phone: [facility] 08-29-2024 13:04-0400 Diastolic blood pressure 72 mm[Hg] Ayanna Young DO Work Phone: [facility] 08-29-2024 13:04-0400 Systolic blood pressure 168 mm[Hg] Ayanna Young DO Work Phone: [facility] 08-29-2024 12:57-0400 Body height 172.7 cm Ayanna Young DO Work Phone: [facility] 08-29-2024 12:57-0400 Body mass index (BMI) [Ratio] 22.72 kg/m2 Ayanna Young DO Work Phone: [facility] 08-29-2024 12:57-0400 Body weight 67.77 kg Ayanna Young DO Work Phone: [facility] 08-29-2024 12:57-0400 Heart rate 64 /min Ayanna Young DO Work Phone: [facility] 07-21-2024 14:12-0400 Diastolic blood pressure 68 mm[Hg] Paty Ortega MUSEUM [employer]IST Work Phone: [facility] 07-21-2024 14:12-0400 Systolic blood pressure 166 mm[Hg] Paty Ortega MUSE[employer] SPECIALIST Work Phone: [facility] 07-21-2024 13:38-0400 Body mass index (BMI) [Ratio] 22.44 kg/m2 Paty Ortega MUSEUM [employer]IST Work Phone: [facility] 07-21-2024 13:38-0400 Body weight 66.95 kg Paty Ortega MUSEUM [employer]IST Work Phone: [facility] 07-21-2024 13:38-0400 Heart rate 69 /min Paty Ortega MUSEUM [employer]IST Work Phone: [facility] 04-24-2024 10:09-0400 Diastolic blood pressure 70 mm[Hg] Woo Small MD Work Phone: [facility] Comment on above: Manual 04-24-2024 10:09-0400 Systolic blood pressure 150 mm[Hg] Woo Small MD Work Phone: [facility] Comment on above: Manual 04-24-2024 09:44-0400 Body height 172.7 cm Woomert Small MD Work Phone: [facility] 04-24-2024 09:44-0400 Body mass index (BMI) [Ratio] 22.43 kg/m2 Woo Day Work Phone: [facility] 04-24-2024 09:44-0400 Body weight 66.91 kg Woo Day Work Phone: [facility] 04-24-2024 09:44-0400 Heart rate 53 /min Woo Work Phone: [facility] 04-24-2024 09:44-0400 SaO2% (BldA) [Mass fraction] 96 % Woo Work Phone: [facility] 02-24-2024 13:44-0400 Body height 172.7 cm Maricruz BERMAN DNP Work Phone: [facility] 02-24-2024 13:44-0400 Body mass index (BMI) [Ratio] 23.11 kg/m2 Maricruz BERMAN DNP Work Phone: [facility] 02-24-2024 13:44-0400 Body weight 68.95 kg Maricruz BERMAN DNP Work Phone: [facility] 02-24-2024 13:44-0400 Diastolic blood pressure 68 mm[Hg] Maricruz BERMAN DNP Work Phone: [facility] 02-24-2024 13:44-0400 Heart rate 76 /min Maricruz BERMAN DNP Work Phone: [facility] 02-24-2024 13:44-0400 Systolic blood pressure 142 mm[Hg] Maricruz BERMAN DNP Work Phone: [facility] 02-18-2024 12:48-0400 Body mass index (BMI) [Ratio] 23.11 kg/m2 Paty Ortega CNP Work Phone: [facility] 02-18-2024 12:48-0400 Body weight 68.95 kg Paty Ortega CNP Work Phone: [facility] 02-18-2024 12:48-0400 Diastolic blood pressure 79 mm[Hg] Paty Ortega M[employer]IST Work Phone: [facility] 02-18-2024 12:48-0400 Heart rate 67 /min Paty Ortega [employer]IST Work Phone: [facility] 02-18-2024 12:48-0400 Systolic blood pressure 131 mm[Hg] Paty Ortega [employer]IST Work Phone: [facility] 01-14-2024 11:02-0400 Body height 172.7 cm Aylin Lacy [employer]IST Work Phone: [facility] 01-14-2024 11:02-0400 Body mass index (BMI) [Ratio] 24.01 kg/m2 Aylin Lacy [employer]IST Work Phone: [facility] 01-14-2024 11:02-0400 Body weight 71.62 kg Aylin Lacy CNP Work Phone: [facility] 01-14-2024 11:02-0400 Diastolic blood pressure 78 mm[Hg] Aylin Lacy [employer]IST Work Phone: [facility] 01-14-2024 11:02-0400 Heart rate 70 /min Aylin Lacy [employer]IST Work Phone: [facility] 01-14-2024 11:02-0400 SaO2% (BldA) [Mass fraction] 94 % Aylin Regino [employer]IST Work Phone: [facility] 01-14-2024 11:02-0400 Systolic blood pressure 139 mm[Hg] Aylin Regino [employer]IST Work Phone: [facility] 12-01-2023 08:00-0500 Body temperature 97.9 [degF] Kathleen Story MD Work Phone: [facility] 12-01-2023 08:00-0500 Diastolic blood pressure 73 mm[Hg] Kathleen Story MD Work Phone: [facility] 12-01-2023 08:00-0500 Heart rate 91 /min Kathleen Story MD Work Phone: [facility] 12-01-2023 08:00-0500 Respiratory rate 18 /min Kathleen Story MD Work Phone: [facility] 12-01-2023 08:00-0500 SaO2% (BldA) [Mass fraction] 94 % Kathleen Story MD Work Phone: [facility] 12-01-2023 08:00-0500 Systolic blood pressure 134 mm[Hg] Kathleen Story MD Work Phone: [facility] 12-01-2023 06:00-0500 Body mass index (BMI) [Ratio] 23.96 kg/m2 Kathleen Story MD Work Phone: [facility] 12-01-2023 06:00-0500 Body weight 69.4 kg Kathleen Story MD Work Phone: [facility] 11-27-2023 04:06-0500 SaO2% (BldA) [Mass fraction] 96.0 % Kathleen Story MD Work Phone: [facility] 11-27-2023 03:00-0500 Body height 170.2 cm Kathleen Story MD Work Phone: [facility] 11-27-2023 01:39-0500 Diastolic blood pressure 79 mm[Hg] Ger Bansal DO Work Phone: [facility] 11-27-2023 01:39-0500 Heart rate 77 /min Ger Bansal DO Work Phone: [facility] 11-27-2023 01:39-0500 Respiratory rate 20 /min Ger Bansal DO Work Phone: [facility] 11-27-2023 01:39-0500 SaO2% (BldA) [Mass fraction] 95 % Ger Bansal DO Work Phone: [facility] 11-27-2023 01:39-0500 Systolic blood pressure 148 mm[Hg] Ger Bansal DO Work Phone: [facility] 11-26-2023 21:22-0500 Body height 172.7 cm Ger Bansal DO Work Phone: [facility] 11-26-2023 21:22-0500 Body mass index (BMI) [Ratio] 22.5 kg/m2 Ger Bansal DO Work Phone: [facility] 11-26-2023 21:22-0500 Body temperature 97.11 [degF] Ger Bansal DO Work Phone: [facility] 11-26-2023 21:22-0500 Body weight 67.13 kg Ger Bansal DO Work Phone: [facility] 10-21-2023 08:54-0500 Body height 172.7 cm Woo Small MD Work Phone: [facility] 10-21-2023 08:54-0500 Body mass index (BMI) [Ratio] 22.61 kg/m2 Woo Small MD Work Phone: [facility] 10-21-2023 08:54-0500 Body weight 67.45 kg Woo Small MD Work Phone: [facility] 10-21-2023 08:54-0500 Diastolic blood pressure 67 mm[Hg] Woo Small MD Work Phone: [facility] 10-21-2023 08:54-0500 Heart rate 65 /min Woo Small MD Work Phone: [facility] 10-21-2023 08:54-0500 SaO2% (BldA) [Mass fraction] 99 % Woo Small MD Work Phone: [facility] 10-21-2023 08:54-0500 Systolic blood pressure 128 mm[Hg] Woo Small MD Work Phone: [facility] 10-13-2023 11:55-0500 SaO2% (BldA) [Mass fraction] 92 % Praful Pineda MD Work Phone: [facility] 10-13-2023 10:39-0500 Heart rate 97 /min Praful Pineda MD Work Phone: [facility] 10-13-2023 09:35-0500 Body height 171.5 cm Praful Pineda MD Work Phone: [facility] 10-13-2023 09:35-0500 Body mass index (BMI) [Ratio] 24.38 kg/m2 Praful Pineda MD Work Phone: [facility] 10-13-2023 09:35-0500 Body weight 71.7 kg Praful Pineda MD Work Phone: [facility] 10-12-2023 20:45-0500 Body temperature 98.1 [degF] Praful Pineda MD Work Phone: [facility] 10-12-2023 20:45-0500 Diastolic blood pressure 85 mm[Hg] Praful Pineda MD Work Phone: [facility] 10-12-2023 20:45-0500 Respiratory rate 16 /min Praful Pineda MD Work Phone: [facility] 10-12-2023 20:45-0500 Systolic blood pressure 123 mm[Hg] Praful Pineda MD Work Phone: [facility] 10-11-2023 01:56-0500 Body temperature 37.0 Praful Pineda MD Work Phone: [facility] 10-11-2023 01:56-0500 SaO2% (BldA) [Mass fraction] 93 % Praful Pineda MD Work Phone: [facility] 10-08-2023 11:12-0500 Diastolic blood pressure 66 mm[Hg] Mary Vargas MD Work Phone: [facility] 10-08-2023 11:12-0500 Heart rate 67 /min Mary Vargas MD Work Phone: [facility] 10-08-2023 11:12-0500 Systolic blood pressure 199 mm[Hg] Mary Vargas MD Work Phone: [facility] 10-08-2023 11:05-0500 Body mass index (BMI) [Ratio] 24.18 kg/m2 Mary Vargas MD Work Phone: [facility] 10-08-2023 11:05-0500 Body weight 72.12 kg Mary Vargas MD Work Phone: [facility] 08-25-2023 14:11-0400 Body weight 72.12 kg Ayanna Young DO Work Phone: [facility] 08-25-2023 14:11-0400 Diastolic blood pressure 62 mm[Hg] Ayanna Young DO Work Phone: [facility] 08-25-2023 14:11-0400 Heart rate 62 /min Ayanna Young DO Work Phone: [facility] 08-25-2023 14:11-0400 Systolic blood pressure 144 mm[Hg] Ayanna Young DO Work Phone: [facility] 07-27-2023 14:48-0400 Diastolic blood pressure 78 mm[Hg] Nancy Mirza Work Phone: [facility] Work Phone: 07-27-2023 14:48-0400 Systolic blood pressure 152 mm[Hg] Nancy Mirza Work Phone: [facility] Work Phone: 07-27-2023 14:45-0400 Body height 172.72 cm Nancy Mirza Work Phone: [facility] Work Phone: 07-27-2023 14:45-0400 Body mass index (BMI) [Ratio] 24.05 kg/m2 Nancy Isbell Koreyeleazar Work Phone: [facility] Work Phone: 07-27-2023 14:45-0400 Body surface area Derived from formula 1.85 m2 Nancy Mirza Work Phone: [facility] Work Phone: 07-27-2023 14:45-0400 Body weight 71.76 kg Nancy Mirza Work Phone: [facility] Work Phone: 07-27-2023 14:45-0400 Diastolic blood pressure 88 mm[Hg] Nancy Mirza Work Phone: [facility] Work Phone: 07-27-2023 14:45-0400 Heart rate 70 /min Nancy Mirza Work Phone: [facility] Work Phone: 07-27-2023 14:45-0400 SaO2% (BldA) [Mass fraction] 97 % Nancy Mirza Work Phone: [facility] Work Phone: 07-27-2023 14:45-0400 Systolic blood pressure 160 mm[Hg] Nancy Mirza Work Phone: [facility] Work Phone: 02-19-2023 13:02-0400 Body mass index (BMI) [Ratio] 24.33 kg/m2 Paty Ortega CNP Work Phone: [facility] 02-19-2023 13:02-0400 Body weight 72.58 kg Paty Ortega MUSE[employer]IST Work Phone: [facility] 02-19-2023 13:02-0400 Diastolic blood pressure 83 mm[Hg] Paty Ortega MUSE[employer] SPECIALIST Work Phone: [facility] 02-19-2023 13:02-0400 Heart rate 73 /min Paty Ortega M[employer] SPECIALIST Work Phone: [facility] 02-19-2023 13:02-0400 Systolic blood pressure 116 mm[Hg] Paty Ortega MUSE[employer] SPECIALIST Work Phone: [facility] 10-19-2022 10:01-0500 Diastolic blood pressure 69 mm[Hg] Paty Ortega MUSE[employer] SPECIALIST Work Phone: [facility] 10-19-2022 10:01-0500 Heart rate 89 /min Paty Ortega MUSE[employer] SPECIALIST Work Phone: [facility] 10-19-2022 10:01-0500 Systolic blood pressure 149 mm[Hg] Paty Ortega M[employer] SPECIALIST Work Phone: [facility] 10-19-2022 09:56-0500 Body mass index (BMI) [Ratio] 24.04 kg/m2 Paty Ortega MUSEUM SPECIALIST Work Phone: [facility] 10-19-2022 09:56-0500 Body weight 71.71 kg Paty Ortega [employer]USE[employer]IST Work Phone: [facility] 06-19-2022 10:04-0400 Diastolic blood pressure 90 mm[Hg] Paty Ortega MUSE[employer] SPECIALIST Work Phone: [facility] 06-19-2022 10:04-0400 Systolic blood pressure 184 mm[Hg] Paty Ortega MUSE[employer] SPECIALIST Work Phone: [facility] 06-19-2022 09:40-0400 Heart rate 72 /min Paty Ortega M[employer] SPECIALIST Work Phone: [facility] 06-19-2022 09:36-0400 Body height 172.7 cm Paty Ortega MUSE[employer] SPECIALIST Work Phone: [facility] 06-19-2022 09:36-0400 Body mass index (BMI) [Ratio] 24.48 kg/m2 Paty Ortega MUSE[employer] SPECIALIST Work Phone: [facility] 06-19-2022 09:36-0400 Body weight 73.03 kg Paty Ortega M[employer]IST Work Phone: [facility] 02-13-2022 11:13-0400 Diastolic blood pressure 74 mm[Hg] Mary Vargas MD Work Phone: [facility] 02-13-2022 11:13-0400 Systolic blood pressure 138 mm[Hg] Mary Vargas MD Work Phone: [facility] 02-13-2022 11:09-0400 Body height 172.7 cm Mary Vargas MD Work Phone: [facility] 02-13-2022 11:09-0400 Body mass index (BMI) [Ratio] 25.09 kg/m2 Mary Vargas MD Work Phone: [facility] 02-13-2022 11:09-0400 Body weight 74.84 kg Mary Vargas MD Work Phone: [facility] 02-13-2022 11:09-0400 Heart rate 71 /min Mary Vargas MD Work Phone: [facility] 10-13-2021 14:07-0500 Diastolic blood pressure 72 mm[Hg] Paty Ortega MUSE[employer] SPECIALIST Work Phone: [facility] 10-13-2021 14:07-0500 Heart rate 74 /min Paty Ortega M[employer] SPECIALIST Work Phone: [facility] 10-13-2021 14:07-0500 Systolic blood pressure 163 mm[Hg] Paty Ortega M[employer] SPECIALIST Work Phone: [facility] 10-13-2021 13:59-0500 Body mass index (BMI) [Ratio] 24.89 kg/m2 Paty Ortega MUSE[employer] SPECIALIST Work Phone: [facility] 10-13-2021 13:59-0500 Body weight 74.25 kg Paty Ortega M[employer]IST Work Phone: [facility] 06-20-2021 14:38-0400 Diastolic blood pressure 68 mm[Hg] Paty Ortega M[employer] SPECIALIST Work Phone: [facility] 06-20-2021 14:38-0400 Heart rate 70 /min Paty Ortega M[employer]IST Work Phone: [facility] 06-20-2021 14:38-0400 Systolic blood pressure 163 mm[Hg] Paty Ortega [employer]IST Work Phone: [facility] 06-20-2021 14:33-0400 Body height 172.7 cm Paty Ortega M[employer] SPECIALIST Work Phone: [facility] 06-20-2021 14:33-0400 Body mass index (BMI) [Ratio] 25.32 kg/m2 Paty Ortega MUSE[employer] SPECIALIST Work Phone: [facility] 06-20-2021 14:33-0400 Body weight 75.52 kg Paty Ortega M[employer]IST Work Phone: [facility] 02-18-2021 15:24-0400 Body height 172.7 cm Mary Vargas MD Work Phone: [facility] 02-18-2021 15:24-0400 Body mass index (BMI) [Ratio] 25.54 kg/m2 Mary Vargas MD Work Phone: [facility] 02-18-2021 15:24-0400 Body weight 76.2 kg Mary Vargas MD Work Phone: [facility] 02-18-2021 15:24-0400 Diastolic blood pressure 70 mm[Hg] Mary Vargas MD Work Phone: [facility] 02-18-2021 15:24-0400 Heart rate 76 /min Mary Vargas MD Work Phone: [facility] 02-18-2021 15:24-0400 Systolic blood pressure 194 mm[Hg] Mary Vargas MD Work Phone: [facility] 10-18-2020 13:36-0500 BMI (Body Mass Index) 25.54 kg/m2 Paty [facility] 10-18-2020 13:36-0500 Body weight 76.2 kg Paty [facility] 10-18-2020 13:36-0500 BP Diastolic 69 mm[Hg] [facility] 10-18-2020 13:36-0500 BP Systolic 163 mm[Hg] [facility] 10-18-2020 13:36-0500 Height 172.7 cm [facility] 10-18-2020 13:36-0500 Pulse (Heart Rate) 72 /min [facility] 06-18-2020 10:01-0400 BMI (Body Mass Index) 25.39 kg/m2 [facility] 06-18-2020 10:01-0400 Body weight 75.75 kg [facility] 06-18-2020 10:01-0400 BP Diastolic 71 mm[Hg] [facility] 06-18-2020 10:01-0400 BP Systolic 172 mm[Hg] [facility] 06-18-2020 10:01-0400 Height 172.7 cm [facility] 06-18-2020 10:01-0400 Pulse (Heart Rate) 72 /min [facility] 11-16-2019 10:40-0500 BMI (Body Mass Index) 25.09 kg/m2 [facility] 11-16-2019 10:40-0500 Body weight 74.84 kg [facility] 11-16-2019 10:40-0500 BP Diastolic 68 mm[Hg] [facility] 11-16-2019 10:40-0500 BP Systolic 178 mm[Hg] [facility] 11-16-2019 10:40-0500 Height 172.7 cm [facility] 11-16-2019 10:40-0500 Pulse (Heart Rate) 75 /min [facility] 07-17-2019 10:48-0400 BMI (Body Mass Index) 25.09 kg/m2 Keeley Patton [facility] 07-17-2019 10:48-0400 Body weight 74.84 kg Keeley Patton [facility] 07-17-2019 10:48-0400 BP Diastolic 69 mm[Hg] Keeley Patton [facility] 07-17-2019 10:48-0400 BP Systolic 152 mm[Hg] Keeley Patton [facility] 07-17-2019 10:48-0400 Height 172.7 cm Keeley Patton [facility] 07-17-2019 10:48-0400 Pulse (Heart Rate) 71 /min Keeley Patton [facility] 03-13-2019 12:07-0400 BMI (Body Mass Index) 25.24 kg/m2 Mary Vargas [facility] 03-13-2019 12:07-0400 Body weight 75.3 kg Mary Vargas [facility] 03-13-2019 12:07-0400 BP Diastolic 67 mm[Hg] Mary Vargas [facility] 03-13-2019 12:07-0400 BP Systolic 160 mm[Hg] Mary Vargas [facility] 03-13-2019 12:07-0400 Height 172.7 cm Mary Vargas [facility] 03-13-2019 12:07-0400 Pulse (Heart Rate) 72 /min Mary Vargas [facility] 11-11-2018 11:08-0500 BMI (Body Mass Index) 26 kg/m2 Keeley Patton [facility] 11-11-2018 11:08-0500 BP Diastolic 74 mm[Hg] Keeley Patton [facility] 11-11-2018 11:08-0500 BP Systolic 172 mm[Hg] Keeley Patton [facility] 11-11-2018 11:08-0500 Height 172.7 cm Keeley Patton [facility] 11-11-2018 11:08-0500 Pulse (Heart Rate) 71 /min Keeley Patton [facility] 11-11-2018 11:08-0500 Weight 77.56 kg Keeley Patton [facility] 07-05-2018 10:05-0400 BMI (Body Mass Index) 25.48 kg/m2 Paty Ortega [facility] 07-05-2018 10:05-0400 BP Diastolic 58 mm[Hg] Paty Ortega [facility] 07-05-2018 10:05-0400 BP Systolic 130 mm[Hg] Paty Ortega [facility] 07-05-2018 10:05-0400 Height 172.7 cm Paty Ortega [facility] 07-05-2018 10:05-0400 Pulse (Heart Rate) 84 /min Paty Ortega [facility] 07-05-2018 10:05-0400 Weight 76.02 kg Paty Ortega [facility] 02-28-2018 10:14-0400 BMI (Body Mass Index) 26.15 kg/m2 [facility] 02-28-2018 10:14-0400 BP Diastolic 64 mm[Hg] [facility] 02-28-2018 10:14-0400 BP Systolic 154 mm[Hg] [facility] 02-28-2018 10:14-0400 Height 172.7 cm [facility] 02-28-2018 10:14-0400 Pulse (Heart Rate) 76 /min [facility] 02-28-2018 10:14-0400 Weight 78.02 kg [facility] 10-29-2017 10:08-0500 BMI (Body Mass Index) 25.24 kg/m2 Mary Vargas [facility] Work Phone: 10-29-2017 10:08-0500 BP Diastolic 64 mm[Hg] Mary Vargas [facility] Work Phone: 10-29-2017 10:08-0500 BP Systolic 142 mm[Hg] Mary Vargas [facility] Work Phone: 10-29-2017 10:08-0500 Height 172.7 cm Mary Vargas [facility] Work Phone: 10-29-2017 10:08-0500 Pulse (Heart Rate) 72 /min Mary Vargas [facility] Work Phone: 10-29-2017 10:08-0500 Weight 75.3 kg Mary Vargas [facility] Work Phone: 06-17-2017 11:04-0400 BMI (Body Mass Index) 24.78 kg/m2 Ya Parker [facility] Work Phone: 06-17-2017 11:04-0400 BP Diastolic 62 mm[Hg] Ya Parker [facility] Work Phone: 06-17-2017 11:04-0400 BP Systolic 148 mm[Hg] Ya Parker [facility] Work Phone: 06-17-2017 11:04-0400 Height 172.7 cm Ya Parker [facility] Work Phone: 06-17-2017 11:04-0400 Pulse (Heart Rate) 64 /min Ya Parker [facility] Work Phone: 06-17-2017 11:04-0400 Weight 73.94 kg Ya Parker [facility] Work Phone: Encounters Encounter Date Encounter [...] Start: 05-01-2025 End: 05-01-2025 ambulatory MARICRUZ M [facility] Amb[facility] Start: 05-01-2025 End: 05-01-2025 Office outpatient visit 25 minutes Maricruz Albert FOOD PROCESSING CHEMIST-MUSEUM SPECIALIST, DNP Work Phone: [facility] Comment on above: 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 Breezy chavez MD [facility] Start: 04-22-2025 Dr. Malika Fonseca [facility] Work Phone: Start: 04-21-2025 Dr. Breezy cahvez MD [facility] Start: 04-21-2025 Dr. Malika Fonseca [facility] Work Phone: Start: 04-20-2025 Dr. Breezy chavez MD [facility] Start: 04-20-2025 Dr. Ger lora [facility] In[facility] Work Phone: Start: 04-19-2025 ambulatory Ryley Steffany Facility:[facility] Start: 04-19-2025 End: 04-22-2025 Evaluation and management of inpatient Ryley Jeter MD Work Phone: [facility] Work Phone: Start: 04-19-2025 End: 04-22-2025 Dr. Nancy Rizzo DO -Intensive Care Unit Work Phone: Start: 04-16-2025 End: 04-17-2025 Refill Ej Guidry MA [facility] Comment on above: Medication Refill Type 1 diabetes suzie itus with diabetic neuropathy (HCC) Start: 04-12-2025 ambulatory RYLEY JETER [facility] Ambulatory Start: 04-10-2025 Dr. Grace sepulveda [facility] Work Phone: Start: 04-09-2025 Non-patient / Non-visit Dr. Kesha Arnold MD [facility] Work Phone: Start: 04-09-2025 Dr. Grace sepulveda MD [facility] Work Phone: Start: 04-08-2025 Non-patient / Non-visit Dr. Cassandra Moore MD [facility] Work Phone: Start: 04-08-2025 Dr. Jose Moore MD [facility] Inpatient Physicians Work Phone: Start: 04-07-2025 Non-patient / Non-visit Dr. Cassandra Moore [facility] Inpatient Physicians Work Phone: Start: 04-07-2025 Dr. Jose Moore MD [facility] Work Phone: Start: 04-06-2025 Non-patient / Non-visit Dr. Cassandra Moore [facility] Inpatient [facility]icians Work Phone: Start: 04-06-2025 Dr. Jose Moore MD [facility] In[facility] Work Phone: Start: 04-06-2025 Non-patient / Non-visit Dr. Rosetta URIBE [facility] Start: 04-06-2025 Dr. Smooth almanza MD [facility] Start: 04-06-2025 Non-patient / Non-visit Dr. Landry August own -[facility] Start: 04-06-2025 Dr. Landry Fagan [facility] Start: 04-05-2025 Non-patient / Non-visit Dr. Rosetta URIBE [facility] Start: 04-05-2025 Dr. Smooth almanza MD [facility] Start: 04-05-2025 Non-patient / Non-visit Dr. Kesha Martin MD [facility] Start: 04-05-2025 Dr. Barbie Martin MD [facility] Start: 04-05-2025 Non-patient / Non-visit Dr. Kesha Arnold MD [facility] In[facility] Work Phone: Start: 04-05-2025 Dr. Grace sepulveda MD [facility] In[facility] Work Phone: Start: 04-05-2025 Non-patient / Non-visit Dr. Landry August own [facility] Start: 04-05-2025 Dr. Landry Fagan DO [facility] -[facility] Start: 04-04-2025 Non-patient / Non-visit Dr. Kesha Arnold MD [facility] Work Phone: Start: 04-04-2025 Dr. Grace sepulveda MD [facility] Work Phone: Start: 04-03-2025 ambulatory [facility] Facility:[facility] Start: 04-03-2025 Non-patient / Non-visit Dr. Koffi langley MD [facility] Start: 04-03-2025 Dr. Koffi Gibbs MD -[facility] Start: 04-03-2025 ambulatory [facility] Facility:[facility] Start: 04-03-2025 End: 04-10-2025 Evaluation and management of inpatient Dr. Dyana Hwang MD -Intensive Care Unit Work Phone: Start: 04-03-2025 End: 04-10-2025 Dr. Grace Arnold MD -Progressive Care Unit Work Phone: Start: 03-29-2025 End: 03-29-2025 ambulatory WOO SMALL [facility] Start: 03-27-2025 End: 03-27-2025 Follow-up encounter Woo Small MD Work Phone: [facility] Comment on above: Basic metabolic pane l Start: 03-12-2025 End: 03-12-2025 Office outpatient visit 25 minutes Paty Ortega [facility] Work Phone: [facility] [place] Comment on above: Type 1 diabetes suzie itus with diabetic neuropathy (HCC) (Primary Dx); Pure hypercholesterolemia; Essential hypertension Start: 03-12-2025 End: 03-12-2025 ambulatory PATY ORTEGA [facility] Ambulatory Start: 03-09-2025 End: 03-09-2025 Office outpatient visit 25 minutes Woo Small MD Work Phone: [facility] Comment on above: 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 (Primary Dx); NSTEMI (non-ST elevated myocardial infarction) (HCC); Hospital discharge follow-up Start: 03-09-2025 End: 03-09-2025 ambulatory RYLEY JETER [facility] Ambulatory Start: 02-28-2025 End: 03-05-2025 Evaluation and management of inpatient [facility] Start: 02-26-2025 End: 02-26-2025 Office outpatient visit 15 minutes Ayanna Albert DO Work Phone: [facility] Comment on above: 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); Essential hypertension; Pure hypercholesterolemia; Type 1 diabetes mellitus with diabetic neuropathy Start: 02-26-2025 End: 02-26-2025 ambulatory AYANNA ALBERT [facility] Ambulatory Start: 02-16-2025 End: 02-16-2025 Refill Paty rOtega CNP Work Phone: [facility] Endocrinology Phys[facility] Comment on above: Type 1 diabetes suzie itus with diabetic neuropathy (HCC) (Primary Dx) Start: 02-14-2025 End: 02-14-2025 Documentation procedure Ej Guidry MA [facility] t [facility] Comment on above: Letter refaxed Start: 02-12-2025 End: 02-13-2025 Orders Only Paty Ortega CNP Work Phone: [facility] End[facility] Start: 02-09-2025 Encounter for other preprocedural examination Kerwin Tamayo [facility] Start: 02-06-2025 End: 02-06-2025 ambulatory Ryley Jeter MD Work Phone: [facility] Work Phone: Start: 02-06-2025 End: 02-06-[address] Kerwin Tamayo MD -Laboratory, [facility] Start: 02-06-2025 End: 02-06-2025 Dr. Kerwin Tamayo MD -Laboratory [facility] Start: 02-06-2025 End: 02-06-2025 ambulatory Ryley Jeter Facility:[facility] Start: 01-01-2025 End: 01-01-2025 Refill Paty Ortega MUSEUM SPECIALIST Work Phone: [facility] Endocr[facility] Comment on above: Type 1 diabetes suzie itus with diabetic neuropathy (HCC) (Primary Dx) Start: 12-08-2024 End: 12-08-2024 Refill Paty Ortega MUSEUM SPECIALIST Work Phone: [facility] Comment on above: Type 1 diabetes suzie itus with diabetic neuropathy (HCC) Start: 11-20-2024 End: 11-20-2024 Refill Paty Ortega MUSEUM SPECIALIST Work Phone: [facility] Start: 11-14-2024 End: 11-14-2024 Office outpatient visit 25 minutes Woo Small MD Work Phone: [facility] Comment on above: 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 (Primary Dx); Claudication in peripheral vascular disease; Bilateral carotid artery stenosis Start: 11-14-2024 End: 11-14-2024 ambulatory RYLEY KEY Corefino [facility] Ambulatory Start: 11-13-2024 End: 11-13-2024 Office outpatient visit 25 minutes Paty Ortega MUSEUM SPECIALIST Work Phone: [facility] [place] Comment on above: Type 1 diabetes suzie itus with diabetic neuropathy (HCC) (Primary Dx); Pure hypercholesterolemia; Essential hypertension Start: 11-13-2024 End: 11-13-2024 [facility] Start: 11-09-2024 End: 11-09-2024 Office outpatient new 60 minutes Sandi Phan PA-C Work Phone: [facility] Comment on above: Bilateral carotid ar radha stenosis Start: 11-09-2024 End: 11-09-2024 ambulatory SANDI PHAN [facility] Ambulatory Start: 11-07-2024 End: 11-07-2024 Office outpatient new 45 minutes Brock Groves MD Work Phone: [facility] Comment on above: 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 (Primary Dx) Start: 11-07-2024 End: 11-11-2024 Orders Only Sandi Phan PA-C Work Phone: [facility] Comment on above: Bilateral carotid ar radha stenosis (Primary Dx) Start: 11-06-2024 End: 11-07-2024 Refill Paty Ortega CNP Work Phone: [facility] End[facility] Comment on above: Type 1 diabetes suzie itus with diabetic neuropathy (HCC) (Primary Dx) Start: 10-27-2024 End: 10-28-[address] [facility] Start: 10-27-2024 End: 10-28-2024 Emergency department patient visit Elías Rodriguez MD Work Phone: [facility] Intermediate Care Unit Start: 10-23-2024 End: 10-23-2024 Chart abstracting Ej Guidry MA [facility] Comment on above: Medication Refill Start: 10-18-2024 End: 10-18-2024 Office outpatient visit 25 minutes Woo Small MD Work Phone: [facility] Comment on above: Claudication in sheyla pheral vascular disease (HCC) (Primary Dx); Encounter for examination of blood pressure with abnormal findings; 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; Congestive heart failure, unspecified HF chronicity, unspecified heart failure type (HCC); Hypertensive emergency Start: 10-18-2024 End: 10-18-2024 Patient encounter status Woo Small MD Work Phone: [facility] Start: 10-18-2024 End: 10-18-2024 ambulatory WOO SMALL [facility] Ambulatory Start: 10-18-2024 End: 10-18-2024 Encounter for examination of blood pressure with abnormal findings WOO SMALL [facility] Start: 10-06-2024 End: 10-06-2024 Refill Luisa Easley RN [facility] Start: 10-04-2024 ambulatory EJ GUIDRY [facility] Ambulatory Start: 09-28-2024 ambulatory [facility] Start: 09-26-2024 End: 09-26-2024 Refill Paty Ortega CNP Work Phone: [facility] Endocrinology Phys[facility] Comment on above: Type 1 diabetes suzie itus with diabetic neuropathy (HCC) (Primary Dx) Start: 09-21-2024 End: 09-21-2024 ambulatory Chalcam Steffany Facility:[facility] Start: 09-13-2024 ambulatory Chalcam Steffany Facility:[facility] Start: 09-12-2024 ambulatory Chalcam Steffany [facility] Start: 09-12-2024 End: 09-14-2024 Evaluation and management of inpatient Ryley Steffany Facility:[facility] Start: 09-12-2024 ambulatory [facility] Start: 08-29-2024 End: 08-29-2024 Office outpatient visit 15 minutes Ayanna Albert DO Work Phone: [facility] Comment on above: 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); Essential hypertension; Type 1 diabetes mellitus with diabetic neuropathy Start: 08-29-2024 End: 08-29-2024 ambulatory [facility] Ambulatory Start: 07-21-2024 End: 07-21-2024 Office outpatient visit 25 minutes Paty Ortega CNP Work Phone: [facility] [place] Comment on above: Type 1 diabetes suzie itus with diabetic neuropathy (HCC) (Primary Dx); Pure hypercholesterolemia; Essential hypertension Start: 07-21-2024 End: 07-21-2024 ambulatory RYLEY JETER [facility] Ambulatory Start: 07-07-2024 End: 07-07-2024 ambulatory NO ASSIGNED PCP GENERIC PROVID[facility] Start: 05-17-2024 End: 05-17-[address] 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 (Primary Dx); Primary hypertension; Dyslipidemia Start: 03-28-2024 Refill Ej Guidry MA [facility] Comment on above: Medication Refill Start: 03-06-2024 Refill Paty Ortega CNP Work Phone: [facility] [place] Comment on above: Type 1 diabetes suzie itus with diabetic neuropathy (HCC) Start: 02-24-2024 End: 02-24-2024 Office outpatient visit 15 minutes Maricruz [facility] Work Phone: [facility] Office Building Comment on above: 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); Acute on chronic systolic (congestive) heart failure (Multi); Type 1 diabetes mellitus with diabetic neuropathy (Multi) Start: 02-18-2024 End: 02-18-2024 Office outpatient visit 25 minutes Paty Ortega CNP Work Phone: [facility] [place] Comment on above: Type 1 diabetes suzie itus with diabetic neuropathy (HCC) (Primary Dx); Pure hypercholesterolemia; Essential hypertension Start: 02-07-2024 End: 02-07-2024 ambulatory NO ASSIGNED PCP GENERIC PROVID[facility] Start: 01-17-2024 Refill Ej Guidry MA [facility] Comment on above: Medication Refill Start: 01-14-2024 End: 01-14-2024 Office outpatient visit 15 minutes Aylin Lacy MUSEUM SPECIALIST Work Phone: [facility] Comment on above: Cardiovascular stres s test abnormal (Primary Dx); Dyslipidemia; 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; Primary hypertension Start: 12-29-2023 Refill Ej Guidry MA [facility] Comment on above: Medication Refill Start: 12-15-2023 End: 12-15-2023 ambulatory [facility] Work Phone: Start: 12-15-2023 End: 12-15-2023 Patient encounter procedure [facility] [place] Work Phone: Start: 11-29-2023 End: 11-29-2023 Subsequent hospital visit by physician Jovan Paul [facility] Comment on above: Arrived Start: 11-27-2023 End: 12-01-2023 Evaluation and management of inpatient [facility] Work Phone: [facility] Start: 11-26-2023 End: 11-27-2023 Emergency department patient visit Ger Bansal Work Phone: [facility] Emergency Medicine Comment on above: NSTEMI (non-ST eleva chinyere myocardial infarction) (CMS/HCC) (Primary Dx); MADONNA (acute kidney injury) (CMS/[facility]); Acute combined systolic and diastolic congestive heart failure (CMS/[facility]); Type 1 diabetes mellitus with other specified complication ([facility]) Start: 11-25-2023 End: 11-25-2023 [facility] Work Phone: Start: 11-25-2023 End: 11-25-2023 Patient encounter procedure [facility] Work Phone: Start: 11-17-2023 End: 11-17-2023 [facility] Work Phone: Start: 11-17-2023 End: 11-17-2023 Patient encounter procedure [facility] Work Phone: Start: 11-02-2023 Orders Only Mary Ramirez MD Work Phone: [facility] Endocrinology Physicians Start: 10-22-2023 End: 10-22-2023 Patient encounter procedure [facility] Start: 10-21-2023 End: 10-21-2023 Office outpatient new 45 minutes Mary Vargas MD Work Phone: [facility] Comment on above: 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 (Primary Dx); Dyslipidemia; Congestive heart failure, unspecified HF chronicity, unspecified heart failure type (HCC) Start: 10-11-2023 End: 10-11-2023 Subsequent hospital visit by physician Jovan Paul [facility] Start: 12-11-2023 Critical care ill/in jured patient init 30-74 min Aury Rouse DO Work Phone: [facility] Work Phone: Start: 10-11-2023 End: 10-13-2023 Evaluation and management of inpatient Praful Pineda MD Work Phone: [facility] Surgical Intensive Care Comment on above: [...] minutes Mary Vargas MD Work Phone: [facility] Physicians [facility] Endocrinology [place] Comment on above: 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 Ayanna Albert Facility:[id number] Start: 07-30-2023 Refill Paty Ortega CNP Work Phone: [facility] Endocrinology [place] Start: 07-29-2023 Patient encounter procedure Da jovani Mirza Work Phone: [facility] Work Phone: Start: 07-27-[address] Ayanna Albert Facility:[id number] Start: 02-19-2023 End: 02-19-2023 Office outpatient visit 25 minutes Paty Ortega CNP Work Phone: [facility] [place] Comment on above: Type 1 diabetes suzie itus with diabetic neuropathy (HCC) Start: 01-25-2023 Patient encounter procedure Da jovani Mirza Work Phone: [facility] Work Phone: Start: 01-25-[address] Nancy Mirza Facility:[id number] Start: 01-18-2023 Patient encounter procedure Da jovani Mirza Work Phone: [facility] Work Phone: Start: 01-18-[address] Nancy Mirza Facility:[id number] Start: 01-15-2023 Patient encounter procedure Da jovani Mirza Work Phone: [facility] Work Phone: Start: 01-15-2023 [email or web address], Provider : Chaya Chan, Status: Pen, Time: 10:00 AM Nancy Mirza Work Phone: [facility] Work Phone: Start: 01-15-[address] Nancy Mirza Facility:[id number] Start: 01-13-2023 Patient encounter procedure Juwan Mirza Work Phone: [facility] Work Phone: Start: 01-13-[address] Nancy Mirza Facility:[id number] Start: 01-08-2023 [email or web address], Provider : Chaya Chan, Status: Pen, Time: 10:00 AM Nancy Mirza Work Phone: [facility] Work Phone: Start: 01-08-[address] Nancy Mirza Facility:[id number] Start: 01-06-[address] Nancy Mirza Facility:[id number] Start: 01-06-2023 Patient encounter procedure Da jovani Mirza Work Phone: [facility] Work Phone: Start: 01-01-[address] Nancy Mirza Facility:[id number] Start: 01-01-2023 Patient encounter procedure Da jovani Mirza Work Phone: [facility] Work Phone: Start: 12-31-2022 Refill Paty Ortega MUSEUM SPECIALIST Work Phone: [facility] Endocrinology Physicians Comment on above: Type 1 diabetes suzie itus with diabetic neuropathy (HCC) (Primary Dx) Start: 12-30-[address] Nancy Mirza Facility:[id number] Start: 12-25-[address] Nancy Mirza Facility:[id number] Start: 12-25-2022 Patient encounter procedure Da jovani Mirza Work Phone: [facility] Work Phone: Start: 12-21-2022 Patient encounter procedure Da jovani Mirza Work Phone: [facility] Work Phone: Start: 12-21-[address] Nancy Mirza Facility:[id number] Start: 10-19-2022 End: 10-19-2022 Office outpatient visit 25 minutes Paty Ortega MUSEUM SPECIALIST Work Phone: [facility] Phys[facility] End[facility]ology [place] Comment on above: Type 1 diabetes suzie itus with diabetic neuropathy (HCC) (Primary Dx); Essential hypertension; Pure hypercholesterolemia; Bilateral carotid artery stenosis; Prostate cancer screening Start: 06-19-2022 End: 06-19-2022 Office outpatient visit 25 minutes Paty Ortega MUSEUM SPECIALIST Work Phone: [facility]ology [place] Comment on above: Type 1 diabetes suzie itus with diabetic neuropathy (HCC) (Primary Dx); Essential hypertension; Elevated PSA Start: 02-13-2022 End: 02-13-2022 Office outpatient visit 25 minutes Mary Vargas MD Work Phone: [facility] [place] Comment on above: Type 1 diabetes suzie itus with diabetic neuropathy (HCC) (Primary Dx); 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); Essential hypertension; Bilateral carotid artery stenosis; Prostate cancer screening Start: 10-13-2021 End: 10-13-2021 Office outpatient visit 25 minutes Paty Ortega CNP Work Phone: [facility] [place] Comment on above: Type 1 diabetes suzie itus with diabetic neuropathy (HCC) (Primary Dx); Essential hypertension; Pure hypercholesterolemia Start: 10-08-2021 Refill Paty Ortega CNP Work Phone: [facility] Endocrin[facility] Physicians Start: 06-20-2021 End: 06-20-2021 Office outpatient visit 25 minutes Paty Ortega CNP Work Phone: [facility] [place] Comment on above: Type 1 diabetes suzie itus with diabetic polyneuropathy (HCC) (Primary Dx); Essential hypertension; Pure hypercholesterolemia Start: 02-26-2021 End: 02-26-2021 Subsequent hospital visit by physician Mary Vargas MD Work Phone: [facility] Comment on above: Arrived Start: 02-18-2021 End: 02-18-2021 Office outpatient visit 25 minutes Mary Vargas MD Work Phone: [facility] Endocrinology Physicians Comment on above: Type 1 diabetes suzie itus with diabetic polyneuropathy (HCC) (Primary Dx); Bilateral carotid artery stenosis; Essential hypertension; Type 1 diabetes mellitus with diabetic neuropathy (HCC) Start: 02-18-2021 End: 02-18-2021 Refill Mary Vargas MD Work Phone: [facility] Start: 11-22-2020 End: 11-22-2020 Orders Only Ya Nicolas Work Phone: [facility] Start: 10-18-2020 End: 10-18-2020 Office outpatient visit 25 minutes Paty Terry Ortega Work Phone: [facility] Comment on above: Type 1 diabetes suzie itus with diabetic polyneuropathy (HCC) (Primary Dx); Type 1 diabetes mellitus with diabetic neuropathy (HCC); Essential hypertension; Pure hypercholesterolemia Start: 06-18-2020 End: 06-18-2020 Office outpatient visit 25 minutes Paty Terry [facility] Work Phone: [facility] Comment on above: Type 1 diabetes suzie itus with diabetic polyneuropathy (HCC) (Primary Dx); Type 1 diabetes mellitus with diabetic neuropathy (HCC); Essential hypertension; Pure hypercholesterolemia Start: 11-16-2019 End: 11-16-2019 Office outpatient visit 25 minutes Paty Terry [facility] Work Phone: [facility] Comment on above: Type I diabetes suzie itus with neurological manifestations, uncontrolled (HCC) (Primary Dx); Type 1 diabetes mellitus with diabetic polyneuropathy (HCC); Pure hypercholesterolemia Start: 07-17-2019 End: 07-17-2019 Office outpatient visit 25 minutes Keeley Patton Work Phone: [facility] Comment on above: Type 1 diabetes suzie itus with diabetic polyneuropathy (HCC) (Primary Dx); Essential hypertension; Pure hypercholesterolemia Start: 03-13-2019 End: 03-13-2019 Office outpatient visit 25 minutes Mary Vargas Work Phone: [facility] Comment on above: 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) (Primary Dx); Pure hypercholesterolemia; Essential hypertension; Type 1 diabetes mellitus with diabetic neuropathy (HCC); Prostate cancer screening Start: 11-11-2018 End: 11-11-2018 Office outpatient visit 15 minutes Keeley Patton Work Phone: [facility] Comment on above: Type 1 diabetes suzie itus with diabetic neuropathy (HCC) (Primary Dx); Essential hypertension Start: 07-05-2018 End: 07-05-2018 Office outpatient visit 25 minutes Paty [employer] Work Phone: [facility] Comment on above: Type 1 diabetes suzie itus with diabetic neuropathy (HCC) (Primary Dx); Essential hypertension; Pure hypercholesterolemia Start: 02-28-2018 End: 02-28-2018 Office/outpatient visit, est, level 3 Alexandra Givens Work Phone: [facility] Start: 02-09-2018 Ambulatory Nancy Mirza Facilit y:[facility] Start: 02-09-2018 End: 02-09-2018 Ambulatory Nancy Mirza Work Phone: [facility] Start: 10-29-2017 Office/outpatient vi sit, est, level 4 Mary Vargas Work Phone: [facility] Start: 06-17-2017 End: 06-17-2017 Office outpatient visit 25 minutes Ya Buckariela Seaywin Work Phone: [facility] Comment on above: Type [...] Phone: Start: 04-19-2025 Urine microscopy: red cells Ryely Jeter MD Work Phone: Start: 04-19-2025 Urnls [...] colitis,primary sclerosing cholangitis and autoimmune hepatitis.Performed at: [place] [id number] Director: Todd Anderson PhD, Phone: [phone] Start: 04-06-2025 Serum inorganic phos phate measurement [...] or Pulmonary Embolism (PE)CRITICAL VALUE CALLED TO [id number] Victor Hugo Santamaria.RESULTS READ BACK BY SAME. Start: 04-03-2025 Estimated creatinine clearance Ryley Jeter MD Work Phone: Start: 02-28-2025 Thyrotropin [Units/v olume] in Serum or Plasma Maricruz Albert APRN-MUSEUM SPECIALIST, [facility] Work Phone: Start: 02-12-2025 Comprehensive metabolic panel Paty Ortega [facility] Work Phone: Start: 02-12-2025 Lipid panel Paty Ortega [facility] Work Phone: Start: 02-12-2025 Lipid [...] Start: 12-01-2023 End: 12-01-2023 Glucose measurement Generic [facility] Work Phone: Start: 12-01-2023 Basic metabolic pane l calcium total Normajoanna Marin Seymour MUSEUM SPECIALIST Work Phone: Start: 11-30-2023 Glucose measurement Gen malika [facility] Work Phone: Start: 11-30-2023 [facility] Work Phone: Start: 11-30-2023 Echo tthrc r-t 2d w/ wom-mode compl spec&colr d Norma Geiger MUSEUM SPECIALIST Work Phone: Start: 11-30-2023 Basic metabolic pane l calcium total Nroma Marin Seymour MUSEUM SPECIALIST Work Phone: Start: 11-29-2023 Ct thorax w/o contra st material Alfred P Ezike MUSEUM SPECIALIST Work Phone: Start: 11-29-2023 Thromboplastin time partial plasma/whole blood Mary Vargas MD Work Phone: Start: 11-29-2023 Glucose measurement Gen [facility] Work Phone: Start: 11-29-2023 Ecg routine ecg w/le ast 12 lds trcg only w/o i&r Ger W Bansal DO Work Phone: Start: 11-29-2023 Glucose measurement Gen [facility] Work Phone: Start: 11-29-2023 Thromboplastin time partial plasma/whole blood Mary Vargas MD Work Phone: Start: 11-29-2023 Basic metabolic pane l calcium total Norma Tania Benson MUSEUM SPECIALIST Work Phone: Start: 11-28-2023 Glucose measurement Gen [facility] Work Phone: Start: 11-28-2023 Glucose measurement Gen [facility] Work Phone: Start: 11-28-2023 Glucose measurement Gen [facility] Work Phone: Start: 11-28-2023 Glucose measurement Gen [facility] Work Phone: Start: 11-28-2023 Basic metabolic pane l calcium total Norma Tania Juanjo MUSEUM SPECIALIST Work Phone: Start: 11-28-2023 Glucose measurement Gen [facility] Work Phone: Start: 11-28-2023 Basic metabolic pane l calcium total Norma Tania Juanjo MUSEUM SPECIALIST Work Phone: Start: 11-27-2023 End: 11-27-2023 Basic metabolic panel calcium total Nomra Tania Benson MUSEUM SPECIALIST Work Phone: Start: 11-27-2023 C-reactive protein Mehdi Pabon MD Work Phone: Start: 11-27-2023 Glucose measurement Gen [facility] Work Phone: Start: 11-27-2023 Glucose measurement Gen malika [facility] Work Phone: Start: 11-27-2023 Glucose measurement Gen malika [facility] Work Phone: Start: 11-27-2023 Basic metabolic pane l calcium total Norma Tania Benson MUSEUM SPECIALIST Work Phone: Start: 11-27-2023 Glucose measurement Gen malika [facility] Work Phone: Start: 11-27-2023 Iaad ia clostridium difficile toxin Norma Taina Juanjo MUSEUM SPECIALIST Work Phone: Start: 11-27-2023 Hemoglobin glycosylated a1c Mary Vargas MD Work Phone: Start: 11-27-2023 Glucose measurement Gen malika [facility] Work Phone: Start: 11-27-2023 Basic metabolic pane l calcium total Norma Tania Juanjo MUSEUM SPECIALIST Work Phone: Start: 11-27-2023 Glucose measurement Gen malika [facility] Work Phone: Start: 11-27-2023 Glucose measurement Gen malika [facility] Work Phone: Start: 11-27-2023 End: 11-27-2023 Glucose measurement Generic [facility] Work Phone: Start: 11-27-2023 Basic metabolic pane l calcium total Norma Tania Juanjo MUSEUM SPECIALIST Work Phone: Start: 11-27-2023 Glucose measurement Gen malika [facility] Work Phone: Start: 11-27-2023 Glucose measurement Gen malika [facility] Work Phone: Start: 11-27-2023 Glucose measurement Gen malika [facility] Work Phone: Start: 11-27-2023 Basic metabolic pane l calcium total Norma Tania Juanjo MUSEUM SPECIALIST Work Phone: Start: 11-27-2023 Influenza virus A an d B RNA and SARS-CoV-2 (COVID-19) N gene panel - Respiratory specimen by ALICE with probe detection Norma Geiger CNP Work Phone: Start: 11-27-2023 Polymerase chain ty ction analysis Norma Geiger CNP Work Phone: Start: 11-27-2023 End: 11-27-2023 Glucose measurement Generic [facility] Work Phone: Start: 11-27-2023 Assay of troponin quantitative Norma Geiger CNP Work Phone: Start: 11-27-2023 Gases blood ph direc t nikkie xcpt pulse oximitry [facility] Work Phone: Start: 11-27-2023 End: 11-27-2023 Glucose measurement Generic [facility] Work Phone: Start: 11-27-2023 Radiologic exam ches t single view Norma Geiger CNP Work Phone: Start: 11-27-2023 End: 11-27-2023 Gases blood ph direct nikkie xcpt pulse oximitry [facility] Work Phone: Start: 11-27-2023 Ecg routine [...] Phone: Start: 11-27-2023 Lipid panel Norma Tavares MUSEUM SPECIALIST Work Phone: Start: 11-27-2023 End: 11-27-2023 Glucose measurement Generic [facility] Work Phone: Start: 11-27-2023 Thyrotropin [Units/v olume] in Serum or Plasma [facility] Start: 11-27-2023 Assay of troponin quantitative Ger [...] 10-11-2023 Radiologic exam ches t single view Auyr Rouse DO Work Phone: Start: 10-11-2023 Comprehensive [...] 3 comp foot exam completed Paty Ortega MUSEUM SPECIALIST Work Phone: Start: 02-19-2023 3 comp foot exam completed Paty Ortega MUSEUM SPECIALIST Work Phone: Start: 02-12-2023 Lipid 1996 panel - S laurence or Plasma Ayanna Albert DO Work Phone: Start: 02-12-2023 Thyrotropin [Units/v olume] in Serum or Plasma Ayanna Albert DO Work Phone: Start: 10-19-2022 3 comp foot exam completed Paty Ortega MUSEUM SPECIALIST Work Phone: Start: 06-19-2022 3 comp foot exam completed Paty Ortega MUSEUM SPECIALIST Work Phone: Start: 02-13-2022 3 comp foot exam completed Mary Vargas MD Work Phone: Start: 10-13-2021 3 comp foot exam completed Paty Ortega MUSEUM SPECIALIST Work Phone: Start: 06-20-2021 3 comp foot exam completed Paty Ortega MUSEUM SPECIALIST Work Phone: Start: 06-11-2021 Microalbumin [Mass/v olume] in Urine by Test strip Paty Ortega MUSEUM SPECIALIST Work Phone: Start: 02-26-2021 Duplex scan extracra nial art compl bi study Mary Vargas MD Work Phone: Start: 02-18-2021 3 comp foot exam completed Mary Vargas MD Work Phone: Start: 10-18-2020 3 comp foot exam completed Paty Ortega Start: 10-14-2020 Ophthalmic examinati on and evaluation Paty Ortega MUSEUM SPECIALIST Work Phone: Start: 10-03-2020 Microalbumin [Mass/v [...] EJACULATION WITHIN 48 HRS. [facility] MAURIC[facility] VOL24,NO.2, , PG.339 Performed By: #### 2 [id number] #### MIKE [employer] [address] [place], [place] [id number] Start: 03-13-2019 3 comp foot exam completed Keeley Patton Start: 11-11-2018 3 comp foot exam completed Mary Vargas Start: 07-05-2018 3 comp foot exam completed Keeley Patton Start: 02-15-2017 3 comp foot exam completed Ya Parker Plan of Treatment Date Care Activity Detail Author Start: 04-27-2026 Creatinine measurement Creatinine Level [facility] Start: 04-27-2026 Potassium measurement Potassium Level [facility] Start: 04-03-2026 Echocardiography Echocardiogram [facility] Start: 02-28-2026 Thyroid stimulating hormone measurement TSH Level [facility] Start: 02-12-2026 Creatinine measurement Creatinine Level [facility] Start: 02-12-2026 Lipid panel Lipid Panel [facility] Start: 02-12-2026 Potassium measurement Potassium Level [facility] Start: 02-12-2026 Thyroid stimulating hormone measurement TSH Level [facility] Start: 02-12-2026 Urine screening for protein Diabetes: Urine Protein Screening [facility] Start: 11-13-2025 Diabetic foot examination Diabetic Foot Exam [facility] Start: 10-27-2025 Screening for malignant neoplasm of lung Low-dose CT Lung Cancer Screen [facility] Start: 10-23-2025 Glaucoma screening Diabetes: Retinopathy Screening [facility] Start: 09-23-2025 eGFR Diabetes eGFR Diabetes [facility] Start: 09-05-2025 Urine screening for protein eGFR Diabetes [facility] Start: 08-27-2025 End: 08-27-2025 Patient encounter procedure 08/27/2025 1:30 PM EDT Office Visit [facility] Office Building [address] [place] [address] Ayanna Albert, DO [address] [facility] [address] [place], [place] [id number] [facility] Start: 08-14-2025 Hemoglobin A1c measurement A1C [facility] Start: 08-14-2025 Urine screening for protein eGFR Diabetes [facility] Start: 07-13-2025 End: 07-13-2025 Patient encounter procedure 07/13/2025 1:00 PM EDT Office Visit [facility] [place] [address] [place] [address] Paty Ortega, MUSEUM SPECIALIST [address] [place] [address] [facility] [place] Start: 07-07-2025 Creatinine measurement Creatinine Level [facility] Start: 07-07-2025 Potassium measurement Potassium Level [facility] Start: 07-07-2025 Thyroid stimulating hormone measurement TSH Level [facility] Start: 07-02-2025 Influenza vaccination [facility] Start: 06-12-2025 End: 06-12-2025 Patient encounter procedure 06/12/2025 9:20 AM EDT Office Visit [facility] [address] [place] [address] Woo Small MD [facility] [place] [address] [facility] Start: 06-05-2025 End: 06-05-2025 Patient encounter procedure 06/05/2025 11:00 AM EDT Office Visit [facility] Building [address] [place] [address] Maricruz Albert, FOOD PROCESSING CHEMIST-MUSEUM SPECIALIST, DNP [address] [facility] [address] [place] [address] [facility] Start: 06-01-2025 End: 05-01-2026 Basic metabolic 2000 panel - Serum or Plasma Basic metabolic panel Lab Routine Stage 3b chronic kidney disease (Multi) Edema, unspecified type Expected: 06/01/2025 (Approximate), Expires: 05/01/2026 [facility] Work Phone: Comment on above: Expected: 06/01/2025 (Approximate), Expi res: 05/01/2026 Start: 05-30-2025 Hemoglobin A1c measurement [facility] Start: 05-17-2025 End: 05-17-2025 Patient encounter procedure [facility] Start: 05-15-2025 End: 05-01-2026 Basic metabolic 2000 panel - Serum or Plasma Basic metabolic panel Lab Routine Stage 3b chronic kidney disease (Multi) Expected: 05/15/2025 (Approximate), Expires: 05/01/2026 [facility] Service Area Work Phone: Comment on above: Expected: 05/15/2025 (Approximate), Expi res: 05/01/2026 Start: 05-15-2025 End: 05-01-2026 CBC panel - Blood by Automated count CBC Lab Routine Stage 3b chronic kidney disease (Multi) Anemia due to stage 4 chronic kidney disease Expected: 05/15/2025 (Approximate), Expires: 05/01/2026 [facility] Work Phone: Comment on above: Expected: 05/15/2025 (Approximate), Expi res: 05/01/2026 Start: 05-14-2025 Hemoglobin A1c measurement [facility] Start: 05-14-2025 End: 05-14-2025 Patient encounter procedure 05/14/2025 11:20 AM EDT Office Visit [facility] [address] [place] [id number] Woo Small MD [address] [place] [id number] [facility] Start: 05-09-2025 Patient discharge [facility] Start: 05-07-2025 Referral to service [facility] Start: 05-06-2025 [facility] Start: 05-05-2025 Application of intermittent pneumatic compression device [facility] Start: 05-05-2025 Following clinical pathway protocol [facility] Start: 05-05-2025 Assessment of risk of venous thromboembolism [facility] Start: 05-05-2025 Care regimes management [facility] Start: 05-05-2025 Catheterization of vein [facility] Start: 05-05-2025 Insertion of catheter into peripheral vein [facility] Start: 05-05-2025 Measuring intake and output [facility] Start: 05-05-2025 Notification of physician [facility] Start: 05-05-2025 Oxygen therapy [facility] Start: 05-05-2025 Providing care according to standard [facility] Start: 05-05-2025 Provision of activity privileges [facility] Start: 05-05-2025 Referral to occupational therapist [facility] Start: 05-05-2025 Referral to service [facility] Start: 05-05-2025 Gas panel - Arterial blood [facility] Start: 05-05-2025 Verification routine [facility] Start: 05-05-2025 Admission procedure [facility] Start: 05-05-2025 End: 05-05-2025 [facility] Start: 05-05-2025 Hospital admission, emergency, from emergency room, medical nature [facility] Start: 05-05-2025 End: 05-05-2025 [facility] Start: 05-05-2025 Continuous pulse oximetry [facility] Start: 05-05-2025 Dual pressure spontaneous ventilation support [facility] Start: 05-05-2025 Blood culture [facility] Start: 05-05-2025 Patient referral to dietitian [facility] Start: 04-28-2025 Urine screening for protein [facility]GFR [facility] Start: 04-22-2025 Patient discharge [facility] Start: 04-21-2025 Application of intermittent pneumatic compression device [facility] Start: 04-20-2025 Referral to service [facility] Start: 04-20-2025 Referral to international student counselor [facility] Start: 04-20-2025 [facility] Start: 04-20-2025 Inhalation therapy procedure [facility] Start: 04-19-2025 [facility] Start: 04-19-2025 Referral to service [facility] Start: 04-19-2025 Care planning and problem solving actions [facility] Start: 04-19-2025 [facility] Start: 04-19-2025 Gas panel - Arterial blood [facility] Start: 04-19-2025 Serum inorganic phosphate measurement [facility] Start: 04-19-2025 Thyroid stimulating hormone measurement [facility] Start: 04-19-2025 Assessment of risk of venous thromboembolism [facility] Start: 04-19-2025 Care regimes management [facility] Start: 04-19-2025 Catheterization of vein [facility] Start: 04-19-2025 Continuous pulse oximetry [facility] Start: 04-19-2025 Elevation of head of bed [facility] Start: 04-19-2025 Incentive spirometry [facility] Start: 04-19-2025 Insertion of catheter into peripheral vein [facility] Start: 04-19-2025 Measuring intake and output [facility] Start: 04-19-2025 Notification of physician [facility] Start: 04-19-2025 Oxygen therapy [facility] Start: 04-19-2025 Patient referral to dietitian [facility] Start: 04-19-2025 Providing care according to standard [facility] Start: 04-19-2025 Referral to land law examiner [facility] Start: 04-19-2025 Referral to occupational therapist [facility] Start: 04-19-2025 Referral to service [facility] Start: 04-19-2025 Respiratory therapy [facility] Start: 04-19-2025 Tobacco use cessation education [facility] Start: 04-19-2025 Urinalysis complete panel - Urine [facility] Start: 04-19-2025 Vital signs measurements [facility] Start: 04-19-2025 End: 04-19-2025 [facility] Start: 04-19-2025 Following clinical pathway protocol [facility] Start: 04-19-2025 Pulmonary ventilation perfusion study [facility] Start: 04-19-2025 Verification routine [facility] Start: 04-19-2025 Admission procedure [facility] Start: 04-19-2025 Continuous positive airway pressure ventilation treatment [facility] Start: 04-18-2025 Urine screening for protein eGFR Diabetes [facility] Start: 04-10-2025 Patient discharge [facility] Start: 04-08-2025 Administration of blood product [facility] Start: 04-07-2025 Application of intermittent pneumatic compression device [facility] Start: 04-07-2025 Hemodialysis care [facility] Start: 04-07-2025 End: 04-07-2025 [facility] Start: 04-07-2025 [facility] Start: 04-06-2025 [facility] Start: 04-06-2025 Care of hemodialysis equipment [facility] Start: 04-06-2025 Hemodialysis care [facility] Start: 04-06-2025 [facility] Start: 04-05-2025 End: 04-06-2025 [facility] Start: 04-05-2025 Care of hemodialysis equipment [facility] Start: 04-05-2025 Dialysis care [facility] Start: 04-05-2025 Referral to general surgeon [facility] Start: 04-05-2025 Continuous pulse oximetry [facility] Start: 04-05-2025 Dual pressure spontaneous ventilation support [facility] Start: 04-04-2025 End: 04-04-2025 [facility] Start: 04-04-2025 Care regimes management [facility] Start: 04-04-2025 Notification of physician [facility] Start: 04-04-2025 Referral to land law examiner [facility] Start: 04-04-2025 End: 04-05-2025 [facility] Start: 04-04-2025 [facility] Start: 04-03-2025 Referral to international student counselor [facility] Start: 04-03-2025 Bacteria identified in Blood by Culture Blood Culture [facility] Start: 04-03-2025 Respiratory Panel (PCR) Respiratory Panel (PCR) [facility] Start: 04-03-2025 Following clinical pathway protocol [facility] Start: 04-03-2025 Lab findings surveillance [facility] Start: 04-03-2025 End: 04-03-2025 Care planning and problem solving actions [facility] Start: 04-03-2025 End: 04-03-2025 [facility] Start: 04-03-2025 End: 04-03-2025 Following clinical pathway protocol [facility] Start: 04-03-2025 Application of elastic bandage [facility] Start: 04-03-2025 Assessment of risk of venous thromboembolism [facility] Start: 04-03-2025 Bacteria identified in Sputum by Culture [facility] Start: 04-03-2025 Care regimes management [facility] Start: 04-03-2025 Consultation [facility] Start: 04-03-2025 Elevation of affected extremity [facility] Start: 04-03-2025 Fall prevention [facility] Start: 04-03-2025 Incentive spirometry [facility] Start: 04-03-2025 Inhalation therapy procedure [facility] Start: 04-03-2025 Insertion of catheter into peripheral vein [facility] Start: 04-03-2025 Introduction of urinary catheter [facility] Start: 04-03-2025 Measuring intake and output [facility] Start: 04-03-2025 Notification of physician [facility] Start: 04-03-2025 Oxygen therapy [facility] Start: 04-03-2025 Patient education [facility] Start: 04-03-2025 Patient referral to dietitian [facility] Start: 04-03-2025 Providing care according to standard [facility] Start: 04-03-2025 Provision of activity privileges [facility] Start: 04-03-2025 Referral to occupational therapist [facility] Start: 04-03-2025 Referral to service [facility] Start: 04-03-2025 Tobacco use cessation education [facility] Start: 04-03-2025 Vital signs measurements [facility] Start: 04-03-2025 Bacterial nucleic acid assay [facility] Start: 04-03-2025 Thyroid stimulating hormone measurement [facility] Start: 04-03-2025 Streptococcus pneumoniae antigen assay [facility] Start: 04-03-2025 Verification routine [facility] Start: 04-03-2025 Admission procedure [facility] Start: 04-03-2025 [facility] Start: 04-03-2025 End: 04-03-2025 [facility] Start: 04-03-2025 Continuous pulse oximetry [facility] Start: 04-03-2025 Dual pressure spontaneous ventilation support [facility] Start: 03-23-2025 Medicare Annual Wellness Visit Medicare Annual Wellness Visit (AWV) [facility] Start: 03-12-2025 End: 03-12-2025 Patient encounter procedure 03/12/2025 2:00 PM EDT Office Visit [facility] [place] [address] [place] [phone] Paty Ortega, MUSEUM SPECIALIST [address] [place] [address] [facility] [place] Start: 02-26-2025 End: 02-26-2026 Basic metabolic 2000 panel - Serum or Plasma Basic metabolic panel Lab Routine Stage 3b chronic kidney disease (Multi) Expected: 02/26/2025 (Approximate), Expires: 02/26/2026 [facility] Service Area Work Phone: Comment on above: Expected: 02/26/2025 (Approximate), Expi res: 02/26/2026 Start: 02-06-2025 Creatinine measurement Creatinine Level [facility] Start: 02-06-2025 Potassium measurement Potassium Level [facility] Start: 02-04-2025 Hemoglobin A1c measurement A1C [facility] Start: 11-29-2024 Screening for malignant neoplasm of lung Low-dose CT Lung Cancer Screen [facility] Start: 11-27-2024 Thyroid stimulating hormone measurement TSH Level [facility] Start: 11-26-2024 Creatinine measurement Creatinine Level [facility] Start: 11-26-2024 Potassium measurement Potassium Level [facility] Start: 11-20-2024 End: 11-20-2024 Patient encounter procedure 11/20/2024 2:45 PM EST Office Visit [facility] [place] [address] [place] [address] Paty Ortega CNP [address] [place] [address] [facility] [place] Start: 11-14-2024 End: 11-14-2024 Patient encounter procedure 11/14/2024 10:40 AM EST Office Visit [facility] [address] [place] [address] Woo Small MD [address] [place] [address] [facility] Start: 11-13-2024 End: 11-13-2024 Patient encounter procedure 11/13/2024 11:30 AM EST Office Visit [facility] [place] [address] [place] [address] Paty Ortega CNP [address] [place] [address] [facility] [place] Start: 11-07-2024 End: 11-07-2024 Patient encounter procedure 11/07/2024 10:00 AM EST Office Visit [facility] [address] 3[address] floor [place] [phone] Brock Groves MD [address] [place] [id number] [facility] Start: 11-03-2024 End: 11-03-2024 Patient encounter procedure [facility] Start: 10-27-2024 End: 10-27-2024 Admission to same day surgery center 10/27/2024 10:05 AM EST - 10/27/2024 10:55 AM EST Surgery [facility] Cardi[facility] [address] [phone] Elías Rodriguez MD [address] [place] [address] Left Heart Cath [facility] Comment on above: Left Heart Cath Start: 10-27-2024 Subsequent hospital visit by physician [facility] Procedural Care Unit Start: 10-18-2024 End: 10-18-2024 Patient encounter procedure 10/18/2024 1:20 PM EST Office Visit [facility] [address] 3rd [place] [phone] Woo Small MD [address] [place] [address] [facility] Start: 10-13-2024 Creatinine measurement Creatinine Level [facility] Start: 10-13-2024 Potassium measurement Potassium Level [facility] Start: 10-11-2024 Echocardiography Echocardiogram [facility] Start: 10-06-2024 Hemoglobin A1c measurement [facility] Start: 09-27-2024 Lipid panel Lipid Panel [facility] Start: 09-27-2024 Thyroid stimulating hormone measurement TSH Level [facility] Start: 08-29-2024 End: 08-29-2025 Comprehensive metabolic 2000 panel - Serum or Plasma Comprehensive metabolic panel Lab Routine Stage 3b chronic kidney disease (Multi) Expected: 08/29/2024 (Approximate), Expires: 08/29/2025 [facility] Service Area Work Phone: Comment on above: Expected: 08/29/2024 (Approximate), Expi res: 08/29/2025 Start: 08-29-2024 End: 08-29-2025 Microalbumin/Creatinine [Mass Ratio] in Urine Albumin-Creatinine Ratio, Urine Random Lab Routine Stage 3b chronic kidney disease (Multi) Expected: 08/29/2024 (Approximate), Expires: 08/29/2025 [facility] Work Phone: Comment on above: Expected: 08/29/2024 (Approximate), Expi res: 08/29/2025 Start: 08-29-2024 End: 08-29-2025 Urinalysis complete panel - Urine Urinalysis with Reflex Microscopic Lab Routine Stage 3b chronic kidney disease (Multi) Expected: 08/29/2024 (Approximate), Expires: 08/29/2025 [facility] Work Phone: Comment on above: Expected: 08/29/2024 (Approximate), Expi res: 08/29/2025 Start: 08-29-2024 End: 08-29-2024 Patient encounter procedure 08/29/2024 1:00 PM EDT Office Visit [facility] Medical Office Building [address] [place] [address] Maricruz Albert, FOOD PROCESSING CHEMIST-MUSEUM SPECIALIST, DNP [address] [place] [address] [facility] Start: 08-25-2024 End: 02-23-2025 Microalbumin/Creatinine [Mass Ratio] in Urine Albumin , Urine Random Lab Routine Stage 3b chronic kidney disease (Multi) Expected: 08/25/2024 (Approximate), Expires: 02/23/2025 [facility] Work Phone: Comment on above: Expected: 08/25/2024 (Approximate), Expi res: 02/23/2025 Start: 08-09-2024 Urine screening for protein Diabetes: Urine Protein Screening [facility] Start: 07-21-2024 End: 07-21-2024 Patient encounter procedure 07/21/2024 1:45 PM EDT Office Visit [facility] [place] [address] [place] [address] Paty Ortega CNP [address] [place] [address] [facility] [place] Start: 07-02-2024 COVID-19 Vaccine ( season) COVID-19 Vaccine ( season) [facility] Start: 07-02-2024 COVID-19 Vaccine ( season) COVID-19 Vaccine ( season) [facility] Start: 07-02-2024 Influenza vaccination [facility] Start: 06-21-2024 Diabetic foot examination [facility] Start: 05-31-2024 Urine screening for protein eGFR Diabetes [facility] Start: 04-24-2024 End: 04-24-2024 ambulatory [facility] Start: 04-24-2024 End: 04-24-2024 Patient encounter procedure 04/24/2024 9:40 AM EDT Office Visit [facility] [address] [place] [phone] Woo Small MD [address] [place] [address] [facility] Start: 03-27-2024 Hemoglobin A1c measurement A1C [facility] Start: 02-26-2024 Hemoglobin A1c measurement [facility] Start: 02-24-2024 End: 02-23-2025 Basic metabolic 2000 panel - Serum or Plasma Basic metabolic panel Lab Routine Stage 3b chronic kidney disease (Multi) Expected: 02/24/2024 (Approximate), Expires: 02/23/2025 [facility] Service Area Work Phone: Comment on above: Expected: 02/24/2024 (Approximate), Expi res: 02/23/2025 Start: 02-24-2024 End: 02-23-2025 Phosphate [Mass/volume] in Serum or Plasma Phosphorus Lab Routine Stage 3b chronic kidney disease (Multi) Expected: 02/24/2024 (Approximate), Expires: 02/23/2025 [facility] Work Phone: Comment on above: Expected: 02/24/2024 (Approximate), Expi res: 02/23/2025 Start: 02-24-2024 End: 02-23-2025 Urate [Mass/volume] in Serum or Plasma Uric acid Lab Routine Stage 3b chronic kidney disease (Multi) Expected: 02/24/2024 (Approximate), Expires: 02/23/2025 [facility] Work Phone: Comment on above: Expected: 02/24/2024 (Approximate), Expi res: 02/23/2025 Start: 02-24-2024 End: 02-24-2024 Patient encounter procedure 02/24/2024 1:45 PM EDT Office Visit [facility] Medical Office Building [address] [place] [phone] Maricruz Albert, FOOD PROCESSING CHEMIST-MUSEUM SPECIALIST, DNP [address] [facility] [address] [place] [address] [facility] Medical Office [facility] Start: 02-20-2024 Diabetic foot examination Foot Exam [facility] Start: 02-18-2024 End: 02-18-2024 ambulatory [facility] [place] Start: 02-18-2024 End: 02-18-2024 Patient encounter procedure 02/18/2024 1:00 PM EDT Office Visit [facility] [place] [address] [place] [phone] Paty Ortega, MUSEUM SPECIALIST [address] [place] [address] [facility] [place] Start: 02-13-2024 Lipid panel Lipid Panel [facility] Start: 02-13-2024 Thyroid stimulating hormone measurement TSH Level [facility] Start: 01-14-2024 End: 01-14-2024 ambulatory [facility] Start: 01-14-2024 End: 01-14-2024 Patient encounter procedure 01/14/2024 11:00 AM EDT Office Visit [facility] [address] [facility] [place] [address] Aylin Lacy, MUSEUM SPECIALIST [address] [place] [address] [facility] Start: 01-12-2024 End: 01-12-2024 ambulatory [facility] Start: 01-12-2024 End: 01-12-2024 Patient encounter procedure [facility] Start: 01-10-2024 End: 10-08-2024 Comprehensive metabolic 2000 panel - Serum or Plasma Comprehensive Metabolic Panel Lab Routine 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) Expected: 01/10/2024 (Approximate), Expires: 10/08/2024 [facility] Work Phone: Comment on above: Expected: 01/10/2024 (Approximate), Expi res: 10/08/2024 Start: 01-10-2024 End: 10-08-2024 Hemoglobin A1c/Hemoglobin.total in Blood Hemoglobin A1c Lab Routine 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) Expected: 01/10/2024 (Approximate), Expires: 10/08/2024 [facility] Comment on above: Expected: 01/10/2024 (Approximate), Expi res: 10/08/2024 Start: 12-28-2023 Hemoglobin A1c measurement Diabetes: Hemoglobin A1C [facility] Start: 12-09-2023 Glaucoma screening Diabetes: Retinopathy Screening [facility] Start: 11-29-2023 End: 11-29-2023 Patient encounter procedure [facility] Start: 10-19-2023 Diabetic foot examination Foot Exam [facility] Start: 10-08-2023 End: 10-08-2023 Patient encounter procedure 10/08/2023 11:15 AM EST Office Visit [facility] [place] [address] [place] [phone] Mary Vargas MD [address] [place] [address] [facility] [place] Start: 09-11-2023 Hemoglobin A1c measurement [facility] Start: 08-25-2023 End: 08-25-2024 Basic metabolic 2000 panel - Serum or Plasma Basic metabolic panel Lab Routine Stage 3b chronic kidney disease (CMS/HCC) Expected: 08/25/2023 (Approximate), Expires: 08/25/2024 [facility] Service Area Work Phone: Comment on above: Expected: 08/25/2023 (Approximate), Expi res: 08/25/2024 Start: 08-25-2023 End: 08-25-2024 Microalbumin/Creatinine [Mass Ratio] in Urine Albumin, urine, random Lab Routine Stage 3b chronic kidney disease (CMS/HCC) Expected: 08/25/2023 (Approximate), Expires: 08/25/2024 [facility] Work Phone: Comment on above: Expected: 08/25/2023 (Approximate), Expi res: 08/25/2024 Start: 07-02-2023 COVID-19 Vaccine ( season) COVID-19 Vaccine ( season) [facility] Start: 07-02-2023 Influenza vaccination [facility] Start: 06-21-2023 End: 06-21-2023 Patient encounter procedure 06/21/2023 1:15 PM EDT Office Visit [facility] [place] [address] [place] [phone] Paty Ortega CNP [address] [place] [address] [facility] [place] Start: 06-19-2023 Diabetic foot examination Foot Exam [facility] Start: 06-01-2023 End: 02-20-2024 Comprehensive metabolic 2000 panel - Serum or Plasma Comprehensive Metabolic Panel Lab Routine Type 1 diabetes mellitus with diabetic neuropathy (HCC) Expected: 06/01/2023, Expires: 02/20/2024 [facility] Work Phone: Comment on above: Expected: 06/01/2023, Expires: 4 Start: 06-01-2023 End: 02-20-2024 Hemoglobin A1c/Hemoglobin.total in Blood Hemoglobin A1c Lab Routine Type 1 diabetes mellitus with diabetic neuropathy (HCC) Expected: 06/01/2023, Expires: 02/20/2024 [facility] Comment on above: Expected: 06/01/2023, Expires: Start: 05-14-2023 Hemoglobin A1c measurement A1C [facility] Start: 02-19-2023 End: 02-19-2023 Patient encounter procedure 02/19/2023 Office Visit Endocrinology Paty Ortega, TRISTAN [address] [place] [address] [facility] [place] Start: 02-13-2023 Diabetic foot examination Foot Exam [facility] Start: 02-05-2023 End: 02-05-2023 Patient encounter procedure 02/05/2023 Appointment Cardiology Paty Ortega CNP [address] [place] [address] [facility] Start: 01-30-2023 End: 10-20-2023 Complete blood count with white cell differential, manual CBC and Differential Lab Routine Type 1 diabetes mellitus with diabetic neuropathy (HCC) Expected: 01/30/2023, Expires: 10/20/2023 [facility] Comment on above: Expected: 01/30/2023, Expires: Start: 01-30-2023 End: 12-20-2023 Comprehensive metabolic 2000 panel - Serum or Plasma Comprehensive Metabolic Panel Lab Routine Type 1 diabetes mellitus with diabetic neuropathy (HCC) Expected: 01/30/2023, Expires: 10/20/2023 [facility] Comment on above: Expected: 01/30/2023, Expires: 3 Start: 01-30-2023 End: 10-20-2023 Hemoglobin A1c/Hemoglobin.total in Blood Hemoglobin A1c Lab Routine Type 1 diabetes mellitus with diabetic neuropathy (HCC) Expected: 01/30/2023, Expires: 10/20/2023 [facility] Comment on above: Expected: 01/30/2023, Expires: 3 Start: 01-30-2023 End: 10-20-2023 Lipid 1996 panel - Serum or Plasma Lipid Panel Lab Routine Type 1 diabetes mellitus with diabetic neuropathy (HCC) Expected: 01/30/2023, Expires: 10/20/2023 [facility] Comment on above: Expected: 01/30/2023, Expires: 3 Start: 01-30-2023 End: 10-19-2023 Microalbumin measurement, urine, quantitative Microalbumin/Creatinine Ratio, UR Random Lab Routine Type 1 diabetes mellitus with diabetic neuropathy (HCC) Expected: 01/30/2023, Expires: 10/19/2023 [facility] Comment on above: Expected: 01/30/2023, Expires: 3 Start: 01-30-2023 End: 10-20-2023 Prostate specific Ag [Mass/volume] in Serum or Plasma PSA, Screen Lab Routine Prostate cancer screening Expected: 01/30/2023, Expires: 10/20/2023 [facility] Comment on above: Expected: 01/30/2023, Expires: 3 Start: 01-30-2023 End: 10-20-2023 Thyrotropin [Units/volume] in Serum or Plasma TSH Lab Routine Type 1 diabetes mellitus with diabetic neuropathy (HCC) Expected: 01/30/2023, Expires: 10/20/2023 [facility] Comment on above: Expected: 01/30/2023, Expires: 3 Start: 01-30-2023 End: 10-20-2023 Thyroxine (T4) free [Mass/volume] in Serum or Plasma T4, Free Lab Routine Type 1 diabetes mellitus with diabetic neuropathy (HCC) Expected: 01/30/2023, Expires: 10/20/2023 [facility] Comment on above: Expected: 01/30/2023, Expires: 3 Start: 01-25-2023 [email or web address], Provider: Zoila Lopez, Status: Pen, Time: 2:45 PM [email or web address], Provider: Zoila Lopez, Status: Pen, Time: 2:45 PM [facility] Start: 01-18-2023 PTRECHECKA, Provider: Carlene Whitehead, Status: Pen, Time: 2:00 PM PTRECHECKA, Provider: Carlene Whitehead, Status: Pen, Time: 2:00 PM [facility] Work Phone: Start: 01-15-2023 [email or web address], Provider: Chaya Chan, Status: Pen, Time: 10:00 AM [email or web address], Provider: Chaya Chan, Status: Pen, Time: 10:00 AM [facility] Work Phone: Start: 01-13-2023 [email or web address], Provider: Chaya Chan, Status: Pen, Time: 10:00 AM [email or web address], Provider: Chaya Chan, Status: Pen, Time: 10:00 AM [facility] Work Phone: Start: 01-08-2023 [email or web address], Provider: Chaya Chan, Status: Pen, Time: 10:00 AM [email or web address], Provider: Chaya Chan, Status: Pen, Time: 10:00 AM [facility] Work Phone: Start: 01-06-2023 [email or web address], Provider: Zoila Lopez, Status: Pen, Time: 10:00 AM [email or web address], Provider: Zoila Lopez, Status: Pen, Time: 10:00 AM [facility] Work Phone: Start: 01-01-2023 [email or web address], Provider: Zoila Lopez, Status: Pen, Time: 10:45 AM [email or web address], Provider: Zoila Lopez, Status: Pen, Time: 10:45 AM [facility] Work Phone: Start: 12-30-2022 [email or web address], Provider: Zoila Lopez, Status: Pen, Time: 4:15 PM [email or web address], Provider: Zoila Lopez, Status: Pen, Time: 4:15 PM [facility] Work Phone: Start: 12-25-2022 [email or web address], Provider: Chaya Chan, Status: Pen, Time: 7:45 AM [email or web address], Provider: Chaya Chan, Status: Pen, Time: 7:45 AM [facility] Work Phone: Start: 10-19-2022 End: 10-19-2022 Patient encounter procedure 10/19/2022 Office Visit Endocrinology Paty Ortega CNP [address] [place] [address] [facility] [place] Start: 10-13-2022 Diabetic foot examination Foot Exam [facility] Start: 09-08-2022 Hemoglobin A1c measurement A1C [facility] Start: 07-02-2022 Influenza vaccination [facility] Start: 06-20-2022 Diabetic foot examination Foot Exam [facility] Start: 06-19-2022 End: 06-19-2022 Patient encounter procedure 06/19/2022 Office Visit Endocrinology Paty Ortega CNP [address] [place] [address] [facility] [place] Start: 06-11-2022 Microalbumin measurement, urine, quantitative Urine Microalbumin [facility] Start: 05-27-2022 History and physical examination, annual for health maintenance Wellness Visit [facility] Start: 05-27-2022 Medicare Wellness Visit Medicare Wellness Visit [facility] Start: 04-13-2022 Hemoglobin A1c measurement A1C [facility] Start: 03-06-2022 COVID-19 Vaccine (4 - Booster for Moderna series) COVID-19 Vaccine (4 - Booster for Moderna series) [facility] Start: 02-18-2022 Diabetic foot examination Foot Exam [facility] Start: 02-13-2022 End: 02-13-2022 Patient encounter procedure 02/13/2022 Office Visit Endocrinology Mary Vargas MD [address] [place] [address] [facility] [place] Start: 01-30-2022 End: 10-14-2022 Comprehensive metabolic 2000 panel - Serum or Plasma Comprehensive Metabolic Panel Lab Routine Type 1 diabetes mellitus with diabetic neuropathy (HCC) Expected: 01/30/2022, Expires: 10/14/2022 [facility] Work Phone: Comment on above: Expected: 01/30/2022, Expires: 2 Start: 01-30-2022 End: 10-14-2022 Hemoglobin A1c/Hemoglobin.total in Blood Hemoglobin A1c Lab Routine Type 1 diabetes mellitus with diabetic neuropathy (HCC) Expected: 01/30/2022, Expires: 10/14/2022 [facility] Comment on above: Expected: 01/30/2022, Expires: 2 Start: 01-30-2022 End: 10-14-2022 Lipid 1996 panel - Serum or Plasma Lipid Panel Lab Routine Type 1 diabetes mellitus with diabetic neuropathy (HCC) Expected: 01/30/2022, Expires: 10/14/2022 [facility] Comment on above: Expected: 01/30/2022, Expires: 2 Start: 01-01-2022 COVID-19 Vaccine (4 - Booster for Moderna series) COVID-19 Vaccine (4 - Booster for Moderna series) [facility] Start: 01-01-2022 COVID-19 Vaccine (4 - Moderna series) COVID-19 Vaccine (4 - Moderna series) [facility] [facility] Start: 12-12-2021 Hemoglobin A1c measurement A1C [facility] Start: 12-12-2021 Microalbumin measurement, urine, quantitative Urine Microalbumin [facility] Start: 12-12-2021 Urine screening for protein [facility] Start: 10-18-2021 Diabetic foot examination Foot Exam [facility] Start: 10-14-2021 Glaucoma screening [facility] Start: 10-13-2021 End: 10-13-2021 Patient encounter procedure 10/13/2021 Office Visit Endocrinology Paty Ortega, MUSEUM SPECIALIST [address] [place] [address] [facility] [place] Start: 10-03-2021 Albumin DL <= 20 mg/L (U) [Mass/Vol] Urine Microalbumin [facility] Start: 10-03-2021 Microalbumin measurement, urine, quantitative Urine Microalbumin [facility] Start: 10-01-2021 End: 06-21-2022 Comprehensive metabolic 2000 panel - Serum or Plasma Comprehensive Metabolic Panel Lab Routine Type 1 diabetes mellitus with diabetic polyneuropathy (HCC) Expected: 10/01/2021, Expires: 06/21/2022 [facility] Work Phone: Comment on above: Expected: 10/01/2021, Expires: 2 Start: 10-01-2021 End: 06-21-2022 Hemoglobin A1c/Hemoglobin.total in Blood Hemoglobin A1c Lab Routine Type 1 diabetes mellitus with diabetic polyneuropathy (HCC) Expected: 10/01/2021, Expires: 06/21/2022 [facility] Comment on above: Expected: 10/01/2021, Expires: 2 Start: 10-01-2021 End: 06-21-2022 Thyrotropin [Units/volume] in Serum or Plasma TSH Lab Routine Type 1 diabetes mellitus with diabetic polyneuropathy (HCC) Expected: 10/01/2021, Expires: 06/21/2022 [facility] Comment on above: Expected: 10/01/2021, Expires: 2 Start: 10-01-2021 End: 06-21-2022 Thyroxine (T4) free [Mass/volume] in Serum or Plasma T4, Free Lab Routine Type 1 diabetes mellitus with diabetic polyneuropathy (HCC) Expected: 10/01/2021, Expires: 06/21/2022 [facility] Comment on above: Expected: 10/01/2021, Expires: 2 Start: 09-11-2021 Hemoglobin A1c measurement A1C [facility] Start: 08-13-2021 Hemoglobin A1c measurement A1C [facility] Start: 07-31-2021 COVID-19 Vaccine (3 - Booster for Moderna series) COVID-19 Vaccine (3 - Booster for Moderna series) [facility] Start: 07-04-2021 Prostate specific antigen measurement PSA Level [facility] Start: 07-02-2021 Influenza vaccination Sequential Influenza Vaccine (#1) [facility] Start: 06-20-2021 End: 06-20-2021 Patient encounter procedure 06/20/2021 Office Visit Endocrinology Paty Ortega CNP [address] [place] [address] [phone] [facility] [place] Start: 04-16-2021 History and physical examination, annual for health maintenance Wellness Visit [facility] Start: 04-03-2021 HbA1c (Bld) [Mass fraction] A1C [facility] Start: 02-18-2021 End: 02-18-2021 Office Visit 02/18/2021 Office Visit Endocrinology Mary Vargas MD [address] [place] [address] [phone] [facility] Start: 02-02-2021 End: 10-19-2021 Comprehensive metabolic 2000 panel Comprehensive Metabolic Panel Lab Routine Type 1 diabetes mellitus with diabetic polyneuropathy (HCC) Expected: 02/02/2021, Expires: 10/19/2021 [facility] Comment on above: Expected: 02/02/2021, Expires: Start: 02-02-2021 End: 10-19-2021 Free T4 [Mass/Vol] T4, Free Lab Routine Type 1 diabetes mellitus with diabetic polyneuropathy (HCC) Expected: 02/02/2021, Expires: 10/19/2021 [facility] Comment on above: Expected: 02/02/2021, Expires: Start: 02-02-2021 End: 10-19-2021 HbA1c (Bld) [Mass fraction] Hemoglobin A1c Lab Routine Type 1 diabetes mellitus with diabetic polyneuropathy (HCC) Expected: 02/02/2021, Expires: 10/19/2021 [facility] Comment on above: Expected: 02/02/2021, Expires: Start: 02-02-2021 End: 10-19-2021 TSH Qn TSH Lab Routine Type 1 diabetes mellitus with diabetic polyneuropathy (HCC) Expected: 02/02/2021, Expires: 10/19/2021 [facility] Comment on above: Expected: 02/02/2021, Expires: Start: 12-11-2020 HbA1c (Bld) [Mass fraction] A1C [facility] Start: 11-16-2020 Diabetic foot examination Foot Exam [facility] Start: 10-18-2020 End: 10-18-2020 Office Visit 10/18/2020 Office Visit Endocrinology Keeley Patton, MUSE[employer] SPECIALIST [address] [id number] [facility] Start: 10-01-2020 End: 06-19-2021 Comprehensive metabolic 2000 panel Comprehensive Metabolic Panel Lab Routine Type 1 diabetes mellitus with diabetic polyneuropathy (HCC) Expected: 10/01/2020, Expires: 06/19/2021 [facility] Comment on above: Expected: 10/01/2020, Expires: Start: 10-01-2020 End: 06-19-2021 HbA1c (Bld) [Mass fraction] Hemoglobin A1c Lab Routine Type 1 diabetes mellitus with diabetic polyneuropathy (HCC) Expected: 10/01/2020, Expires: 06/19/2021 [facility] Comment on above: Expected: 10/01/2020, Expires: Start: 10-01-2020 End: 06-19-2021 Lipid 1996 panel Lipid Panel Lab Routine Type 1 diabetes mellitus with diabetic polyneuropathy (HCC) Expected: 10/01/2020, Expires: 06/19/2021 [facility] Comment on above: Expected: 10/01/2020, Expires: Start: 10-01-2020 End: 06-18-2021 Microalbumin measurement, urine, quantitative Microalbumin/Creatinine Ratio, UR Random Lab Routine Type 1 diabetes mellitus with diabetic polyneuropathy (HCC) Expected: 10/01/2020, Expires: 06/18/2021 [facility] Comment on above: Expected: 10/01/2020, Expires: Start: 07-17-2020 Diabetic foot examination FOOT EXAM [facility] Start: 07-02-2020 Influenza vaccination Sequential Influenza Vaccine (#1) [facility] Start: 07-02-2020 Influenza vaccination given Sequential Influenza Vaccine (#1) [facility] Start: 05-03-2020 HbA1c (Bld) [Mass fraction] A1C [facility] Start: 03-15-2020 End: 03-15-2020 Office Visit 03/15/2020 Office Visit Endocrinology Keeley Patton CNP [address] [place] [address] [phone] [facility] Start: 03-13-2020 Diabetic foot examination FOOT EXAM [facility] Start: 01-02-2020 HbA1c (Bld) [Mass fraction] A1C [facility] Start: 11-16-2019 End: 11-16-2019 Office Visit 11/16/2019 Office Visit Endocrinology Paty Ortega CNP [address] [place] [address] [phone] [facility] Start: 11-11-2019 Diabetic foot examination FOOT EXAM [facility] Start: 07-17-2019 End: 07-17-2019 Office Visit 07/17/2019 Office Visit Endocrinology Keeley Patton CNP [address] [place] [address] [phone] [facility] Start: 07-05-2019 Diabetic foot examination FOOT EXAM [facility] Start: 07-02-2019 Influenza vaccination given [facility] Start: 03-13-2019 End: 03-13-2019 Ambulatory 03/13/2019 Office Visit Endocrinology Mary Vargas MD [address] [place] [address] [phone] [facility] Start: 02-28-2019 Diabetic foot examination (regime/therapy) FOOT EXAM [facility] Start: 01-31-2019 Pneumococcal vaccination PNEUMOCOCCAL VACCINE AGE 65+ (2 of 2 - PPSV23) [facility] Start: 2018 Respiratory Syncytial Virus Immunization: Risk, 60-74 Risk, or 75+ (1 - 1-dose 75+ series) Respiratory Syncytial Virus Immunization: Risk, 60-74 Risk, or 75+ (1 - 1-dose 75+ series) [facility] Start: 2018 RSV High Risk: (Elderly (60+) or Population) (1 - 1-dose 75+ series) RSV High Risk: (Elderly (60+) or Population) (1 - 1-dose 75+ series) [facility] Start: 11-08-2018 End: 11-08-2018 Ambulatory 11/08/2018 Office Visit Endocrinology Ya Parker PA-C [address] [facility] [address] [place] [address] [phone] [facility] Start: 10-29-2018 Diabetic foot examination (regime/therapy) FOOT EXAM [facility] Work Phone: Start: 07-05-2018 End: 07-05-2018 Ambulatory 07/05/2018 Office Visit Endocrinology Paty Ortega CNP [address] [facility] [address] [place] [address] [phone] [facility] Start: 07-02-2018 Influenza vaccination [facility] Start: 07-02-2018 Influenza vaccination given SEQUENTIAL INFLUENZA VACCINE (#1) [facility] Start: 02-28-2018 Ambulatory 02/28/2018 Office Visit Endocrinology Alexandra Givens CNP [address] [facility] [address] [place] [address] [phone] [facility] Start: 02-15-2018 3 comp foot exam completed FOOT EXAM [facility] Work Phone: Start: 10-29-2017 Ambulatory 10/29/2017 Office Visit Endocrinology Mary Vargas MD [address] [facility] [address] [place] [address] [phone] [facility] Start: 07-02-2017 Influenza vaccination SEQUENTIAL INFLUENZA VACCINE (#1) [facility] Work Phone: Start: 07-02-2017 SEQUENTIAL INFLUENZA VACCINE (#1) SEQUENTIAL INFLUENZA VACCINE (#1) [facility] Work Phone: Start: 05-10-2017 HbA1c [facility] Work Phone: Start: 2008 ABDOMINAL AORTIC ULTRASOUND ABDOMINAL AORTIC ULTRASOUND [facility] Work Phone: Start: 2008 Fall risk assessment [facility] Start: 2008 Pneumococcal vaccination PNEUMOCOCCAL VACCINE AGE 65+ (1 of 2 - PCV13) [facility] Work Phone: Start: 2008 PNEUMOCOCCAL VACCINE AGE 65+ (1 of 2 - PCV13) PNEUMOCOCCAL VACCINE AGE 65+ (1 of 2 - PCV13) [facility] Work Phone: Start: 2008 Ultrasound scan of abdominal aorta ABDOMINAL AORTIC ULTRASOUND [facility] Work Phone: Start: 2003 RSV patients and/or patients aged 60+ years (1 - 1-dose 60+ series) RSV patients and/or patients aged 60+ years (1 - 1-dose 60+ series) [facility] Start: 2003 Zoster vacc, sc ZOSTER VACCINE [facility] Work Phone: Start: 1993 Administration of herpes zoster vaccine ZOSTER VACCINES (1 of 2) [facility] Start: 1993 ZOSTER VACCINES (1 of 2) ZOSTER VACCINES (1 of 2) [facility] Start: 1965 DTaP/Tdap/Td Vaccines (1 - Tdap) DTaP/Tdap/Td Vaccines (1 - Tdap) [facility] Start: 1961 Hepatitis C antibody, confirmatory test Hepatitis C Screening [facility] Start: 1961 Hepatitis C screening Hepatitis C Screening [facility] Start: 1955 Adolescent depression screening assessment Depression Screening (PHQ9) [facility] Start: 1955 Depression screening using PHQ-9 (Patient Health Questionnaire 9) score [facility] Start: 1953 Albumin Test strip detection limit <= 20 mg/L mass conc (U) URINE MICROALBUMIN [facility] Work Phone: Start: 1953 Diabetic foot examination Diabetes: Foot Exam [facility] Start: 1953 Glaucoma screening [facility] Start: 1953 Ophthalmic examination and evaluation OPHTHALMOLOGY EXAM [facility] Start: 1953 Urine, microalbumin URINE MICROALBUMIN [facility] Work Phone: Start: 1949 Pneumococcal Vaccine: Age 65+ (1 of 2 - PPSV23) Pneumococcal Vaccine: Age 65+ (1 of 2 - PPSV23) [facility] Start: 1946 History and physical examination, annual for health maintenance Wellness Visit [facility] Start: 1943 End: 1943 Low-dose CT Lung Cancer Screen Low-dose CT Lung Cancer Screen [facility] Work Phone: Start: 1943 Protein mass conc COLONOSCOPY [facility] Start: 1943 Screening colonoscopy COLONOSCOPY [facility] Work Phone: Start: 1943 End: 1943 Screening for malignant neoplasm of lung Low-dose CT Lung Cancer Screen [facility] Start: 1943 End: 1943 Tetanus vaccination [facility] Start: 1943 Colonoscopy COLONOSCOPY [facility] Work Phone: Start: 1943 Cyanocobalamin vitamin b-12 Vitamin B-12 [facility] Start: 1943 Diabetes: Celiac Disease Screening Diabetes: Celiac Disease Screening [facility] Start: 1943 Fall risk assessment [place] Risk Assessment [facility] Start: 1943 Low dose computed tomography of chest without contrast Low-dose CT Lung Cancer Screen [facility] Start: 1943 Medicare Annual Wellness Visit Medicare Annual Wellness Visit (AWV) [facility] Start: 1943 Prostate specific antigen measurement PSA Level [facility] Start: 1943 Screening for malignant neoplasm of colon Colorectal Cancer Screening: Colonoscopy [facility] Start: 1943 TETANUS EVERY 10 YR TETANUS EVERY 10 YR [facility] Work Phone: Alanine aminotransferase [Enzymatic activity/volume] in Serum or Plasma [facility] Alanine aminotransferase [Enzymatic activity/volume] in Serum or Plasma [facility] Alanine aminotransferase [Enzymatic activity/volume] in Serum or Plasma [facility] Albumin [Mass/volume ] in Serum or Plasma [facility] Albumin [Mass/volume ] in Serum or Plasma [facility] Albumin [Mass/volume ] in Serum or Plasma [facility] Alkaline phosphatase [Enzymatic activity/volume] in Serum or Plasma [facility] Alkaline phosphatase [Enzymatic activity/volume] in Serum or Plasma [facility] Alkaline phosphatase [Enzymatic activity/volume] in Serum or Plasma [facility] Anion gap in Serum o r Plasma [facility] Anion gap in Serum o r Plasma [facility] Anion gap in Serum o r Plasma [facility] aPTT in Platelet poo r plasma by Coagulation assay aPTT - baseline Lab STAT As needed (Lab) for 1 Occurrences starting 11/26/2023 [facility] Work Phone: Comment on above: As needed (Lab) for 1 Occurrences starti ng 11/26/2023 Bacteria identified in Blood by Culture [facility] Work Phone: End: 11-26-2023 Bacteria identified in Blood by Culture [facility] Work Phone: Comment on above: STAT (Lab) for 1 Occurrences starting until 11/26/2023 Bacteria identified in Blood by Culture [facility] Work Phone: End: 10-27-2024 Bacteria identified in Unspecified specimen by Aerobe culture [facility] Work Phone: Comment on above: Once for 1 Occurrences starting 10/27/20 until 10/27/2024 End: 06-18-2018 Basic metabolic 2000 panel Basic Metabolic Panel Routine Type 1 diabetes mellitus with diabetic neuropathy (HCC) 1 Occurrences starting 06/17/2017 until 06/18/2018 [facility] Work Phone: Comment on above: 1 Occurrences starting 06/17/2017 until 06/18/2018 End: 10-14-2023 Basic metabolic 2000 panel - Serum or Plasma Basic Metabolic Panel Lab Routine Morning draw (Lab) for 3 Occurrences starting 10/12/2023 until 10/14/2023, 1 completed [facility] Work Phone: Comment on above: Morning draw (Lab) for 3 Occurrences sta rting 10/12/2023 until 10/14/2023, 1 completed End: 03-09-2026 Basic metabolic 2000 panel - Serum or Plasma Basic metabolic panel Lab Routine Coronary 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[place] coronary artery of [place] heart without angina pectoris NSTEMI (non-ST elevated myocardial infarction) ([facility]) 1 Occurrences starting 03/09/2025 until 03/09/2026 [facility] Work Phone: Comment on above: 1 Occurrences starting 03/09/2025 until 03/09/2026 Bilirubin, total measurement [facility] Bilirubin, total measurement [facility] Bilirubin, total measurement [facility] BUN/Creatinine ratio [facility] BUN/Creatinine ratio [facility] BUN/Creatinine ratio [facility] Calcium [Mass/volume ] in Serum or Plasma [facility] Calcium [Mass/volume ] in Serum or Plasma [facility] Calcium [Mass/volume ] in Serum or Plasma [facility] Carbon dioxide, tota l [Moles/volume] in Central venous blood [facility] Carbon dioxide, tota l [Moles/volume] in Central venous blood [facility] Carbon dioxide, tota l [Moles/volume] in Central venous blood [facility] End: 04-20-2022 Carotid artery doppler assessment Ultrasound doppler carotid Vascular Ultrasound Routine Bilateral carotid artery stenosis 1 Occurrences starting 02/18/2021 until 04/20/2022 [facility] Comment on above: 1 Occurrences starting 02/18/2021 until 04/20/2022 End: 12-20-2023 Carotid artery doppler assessment Ultrasound doppler carotid Vascular Ultrasound Routine Bilateral carotid artery stenosis 1 Occurrences starting 10/19/2022 until 12/20/2023 [facility] Work Phone: Comment on above: 1 Occurrences starting 10/19/2022 until 12/20/2023 Cath plmt l hrt & ar ts w/njx & angio img s&i LEFT HEART CATH Cardiovascular stress test abnormal Fatigue, unspecified type SOB (shortness of breath) [facility] End: 02-28-2019 CBC and Differential CBC and Differential Routine Type 1 diabetes mellitus with diabetic neuropathy (HCC) 1 Occurrences starting 02/28/2018 until 02/28/2019 [facility] CBC panel - Blood by Automated count CBC Lab STAT As needed (Lab) for 1 Occurrences starting 11/26/2023 [facility] Work Phone: Comment on above: As needed (Lab) for 1 Occurrences starti ng 11/26/2023 End: 12-02-2023 CBC panel - Blood by Automated count CBC Lab STAT Every other day (Lab) for 3 Occurrences starting 11/28/2023 until 12/02/2023 [facility] Work Phone: Comment on above: Every other day (Lab) for 3 Occurrences starting 11/28/2023 until 12/02/2023 End: 10-14-2023 CBC W Auto Differential panel - Blood CBC and Auto Differential Lab Routine Morning draw (Lab) for 3 Occurrences starting 10/12/2023 until 10/14/2023, 2 completed [facility] Work Phone: Comment on above: Morning draw (Lab) for 3 Occurrences sta rting 10/12/2023 until 10/14/2023, 2 completed Cholesterol [Mass/volume] in Serum or Plasma [facility] Cholesterol in HDL [Mass/volume] in Serum or Plasma [facility] End: 11-11-2019 Complete blood count with white cell differential, manual CBC and Differential Routine Type 1 diabetes mellitus with diabetic neuropathy (HCC) 1 Occurrences starting 11/11/2018 until 11/11/2019 [facility] Comment on above: 1 Occurrences starting 11/11/2018 until 11/11/2019 End: 03-13-2020 Complete blood count with white cell differential, manual CBC and Differential Routine 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) 1 Occurrences starting 03/13/2019 until 03/13/2020 [facility] Comment on above: 1 Occurrences starting 03/13/2019 until 03/13/2020 End: 02-19-2022 Complete blood count with white cell differential, manual CBC and Differential Lab Routine Type 1 diabetes mellitus with diabetic polyneuropathy (HCC) 1 Occurrences starting 02/18/2021 until 02/19/2022 [facility] Comment on above: 1 Occurrences starting 02/18/2021 until 02/19/2022 End: 02-14-2023 Complete blood count with white cell differential, manual CBC and Differential Lab Routine Type 1 diabetes mellitus with diabetic neuropathy (HCC) 1 Occurrences starting 02/13/2022 until 02/14/2023 [facility] Work Phone: Comment on above: 1 Occurrences starting 02/13/2022 until 02/14/2023 End: 02-18-2025 Complete blood count with white cell differential, manual CBC and Differential Lab Routine Type 1 diabetes mellitus with diabetic neuropathy (HCC) 1 Occurrences starting 02/18/2024 until 02/18/2025 [facility] Comment on above: 1 Occurrences starting 02/18/2024 until 02/18/2025 End: 07-22-2025 Complete blood count with white cell differential, manual CBC and Differential Lab Routine Type 1 diabetes mellitus with diabetic neuropathy (HCC) 1 Occurrences starting 07/21/2024 until 07/22/2025 [facility] Comment on above: 1 Occurrences starting 07/21/2024 until 07/22/2025 End: 03-13-2026 Complete blood count with white cell differential, manual CBC and Differential Lab Routine Type 1 diabetes mellitus with diabetic neuropathy (HCC) 1 Occurrences starting 03/12/2025 until 03/13/2026 [facility] Comment on above: 1 Occurrences starting 03/12/2025 until 03/13/2026 End: 10-27-2025 Complete PFT with Pre and Post Bronchodilator Complete PFT with Pre and Post Bronchodilator PFT Routine Pulmonary emphysema, unspecified emphysema type (HCC) 1 Occurrences starting 10/27/2024 until 10/27/2025 [facility] Comment on above: 1 Occurrences starting 10/27/2024 until 10/27/2025 End: 07-06-2019 Comprehensive metabolic 2000 panel Comprehensive Metabolic Panel Routine Type 1 diabetes mellitus with diabetic neuropathy (HCC) 1 Occurrences starting 07/05/2018 until 07/06/2019 [facility] Comment on above: 1 Occurrences starting 07/05/2018 until 07/06/2019 End: 11-11-2019 Comprehensive metabolic 2000 panel Comprehensive Metabolic Panel Routine Essential hypertension 1 Occurrences starting 11/11/2018 until 11/11/2019 [facility] Comment on above: 1 Occurrences starting 11/11/2018 until 11/11/2019 End: 07-17-2020 Comprehensive metabolic 2000 panel Comprehensive Metabolic Panel Lab Routine Type 1 diabetes mellitus with diabetic polyneuropathy (HCC) 1 Occurrences starting 07/17/2019 until 07/17/2020 [facility] Comment on above: 1 Occurrences starting 07/17/2019 until 07/17/2020 End: 11-16-2020 Comprehensive metabolic 2000 panel Comprehensive Metabolic Panel Lab Routine Type I diabetes mellitus with neurological manifestations, uncontrolled (HCC) 1 Occurrences starting 11/16/2019 until 11/16/2020 [facility] Comment on above: 1 Occurrences starting 11/16/2019 until 11/16/2020 End: 03-13-2020 Comprehensive metabolic 2000 panel Comprehensive Metabolic Panel Routine 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) 1 Occurrences starting 03/13/2019 until 03/13/2020 [facility] Comment on above: 1 Occurrences starting 03/13/2019 until 03/13/2020 End: 02-19-2022 Comprehensive metabolic 2000 panel - Serum or Plasma Comprehensive Metabolic Panel Lab Routine Type 1 diabetes mellitus with diabetic polyneuropathy (HCC) 1 Occurrences starting 02/18/2021 until 02/19/2022 [facility] Comment on above: 1 Occurrences starting 02/18/2021 until 02/19/2022 End: 02-14-2023 Comprehensive metabolic 2000 panel - Serum or Plasma Comprehensive Metabolic Panel Lab Routine Type 1 diabetes mellitus with diabetic neuropathy (HCC) 1 Occurrences starting 02/13/2022 until 02/14/2023 [facility] Comment on above: 1 Occurrences starting 02/13/2022 until 02/14/2023 End: 06-20-2023 Comprehensive metabolic 2000 panel - Serum or Plasma Comprehensive Metabolic Panel Lab Routine Type 1 diabetes mellitus with diabetic neuropathy (HCC) 1 Occurrences starting 06/19/2022 until 06/20/2023 [facility] Work Phone: Comment on above: 1 Occurrences starting 06/19/2022 until 06/20/2023 End: 02-18-2025 Comprehensive metabolic 2000 panel - Serum or Plasma Comprehensive Metabolic Panel Lab Routine Type 1 diabetes mellitus with diabetic neuropathy (HCC) 1 Occurrences starting 02/18/2024 until 02/18/2025 [facility] Work Phone: Comment on above: 1 Occurrences starting 02/18/2024 until 02/18/2025 End: 07-22-2025 Comprehensive metabolic 2000 panel - Serum or Plasma Comprehensive Metabolic Panel Lab Routine Type 1 diabetes mellitus with diabetic neuropathy (HCC) 1 Occurrences starting 07/21/2024 until 07/22/2025 [facility] Work Phone: Comment on above: 1 Occurrences starting 07/21/2024 until 07/22/2025 End: 11-14-2025 Comprehensive metabolic 2000 panel - Serum or Plasma Comprehensive Metabolic Panel Lab Routine Type 1 diabetes mellitus with diabetic neuropathy (HCC) 1 Occurrences starting 11/13/2024 until 11/14/2025 [facility] Work Phone: Comment on above: 1 Occurrences starting 11/13/2024 until 11/14/2025 End: 03-13-2026 Comprehensive metabolic 2000 panel - Serum or Plasma Comprehensive Metabolic Panel Lab Routine Type 1 diabetes mellitus with diabetic neuropathy (HCC) 1 Occurrences starting 03/12/2025 until 03/13/2026 [facility] Work Phone: Comment on above: 1 Occurrences starting 03/12/2025 until 03/13/2026 End: 02-28-2019 Comprehensive metabolic panel [AGGREGATE] Comprehensive Metabolic Panel Routine Type 1 diabetes mellitus with diabetic neuropathy (HCC) Essential hypertension 1 Occurrences starting 02/28/2018 until 02/28/2019 [facility] End: 10-30-2018 Comprehensive metabolic panel [AGGREGATE] Comprehensive Metabolic Panel Routine Type 1 diabetes mellitus with diabetic neuropathy (HCC) Essential hypertension Pure hypercholesterolemia 1 Occurrences starting 10/29/2017 until 10/30/2018 [facility] Work Phone: Creatinine [Mass/volume] in Serum or Plasma [facility] Creatinine [Mass/volume] in Serum or Plasma [facility] Creatinine [Mass/volume] in Serum or Plasma [facility] End: 11-26-2023 ECG 12 lead [facility] Service Area Work Phone: Comment on above: Once for 1 Occurrences starting 11/26/19 until 11/26/2023 Electrocardiogram, 12-lead PRN ACS symptoms Electrocardiogram, 12-lead PRN ACS symptoms ECG Routine As needed until discontinued starting 10/11/2023 [facility] Service Area Work Phone: Comment on above: As needed until discontinued starting Electrocardiogram, 12-lead PRN ACS symptoms Electrocardiogram, 12-lead PRN ACS symptoms ECG Routine As needed until discontinued starting 10/11/2023 [facility] Work Phone: Comment on above: As needed until discontinued starting Erythrocyte mean corpuscular volume determination [facility] Erythrocyte mean corpuscular volume determination [facility] Erythrocyte mean corpuscular volume determination [facility] End: 02-28-2019 External Lab Microalbumin/Creatinine External Lab Microalbumin/Creatinine Routine Type 1 diabetes mellitus with diabetic neuropathy (HCC) Essential hypertension 1 Occurrences starting 02/28/2018 until 02/28/2019 [facility] End: 11-11-2019 External Lab Microalbumin/Creatinine External Lab Microalbumin/Creatinine Routine Essential hypertension 1 Occurrences starting 11/11/2018 until 11/11/2019 [facility] Comment on above: 1 Occurrences starting 11/11/2018 until 11/11/2019 End: 02-19-2022 External Lab Microalbumin/Creatinine External Lab Microalbumin/Creatinine Lab Routine Type 1 diabetes mellitus with diabetic polyneuropathy (HCC) 1 Occurrences starting 02/18/2021 until 02/19/2022 [facility] Comment on above: 1 Occurrences starting 02/18/2021 until 02/19/2022 End: 02-14-2023 External Lab Microalbumin/Creatinine External Lab Microalbumin/Creatinine Lab Routine Type 1 diabetes mellitus with diabetic neuropathy (HCC) 1 Occurrences starting 02/13/2022 until 02/14/2023 [facility] Comment on above: 1 Occurrences starting 02/13/2022 until 02/14/2023 Glucose [Mass/volume ] in Serum or Plasma POCT GLUCOSE Point of Care Testing Routine 4x daily - AC and at bedtime until discontinued starting 10/11/2023 [facility] Work Phone: Comment on above: 4x daily - AC and at bedtime until disco ntinued starting 10/11/2023 End: 10-15-2023 Glucose [Mass/volume] in Serum or Plasma POCT GLUCOSE Point of Care Testing Routine 4 times daily before meals and at bedtime for 3 Days starting 10/12/2023 until 10/15/2023 [facility] Work Phone: Comment on above: 4 times daily before meals and at bedtim e for 3 Days starting 10/12/2023 until 10/15/2023 Glucose [Mass/volume ] in Serum or Plasma [facility] Glucose [Mass/volume ] in Serum or Plasma [facility] Glucose [Mass/volume ] in Serum or Plasma [facility] End: 02-28-2019 HbA1c Hemoglobin A1c Routine Type 1 diabetes mellitus with diabetic neuropathy (HCC) Essential hypertension 1 Occurrences starting 02/28/2018 until 02/28/2019 [facility] End: 10-30-2018 HbA1c Hemoglobin A1c Routine Type 1 diabetes mellitus with diabetic neuropathy (HCC) Essential hypertension Pure hypercholesterolemia 1 Occurrences starting 10/29/2017 until 10/30/2018 [facility] Work Phone: End: 07-17-2020 HbA1c (Bld) [Mass fraction] Hemoglobin A1c Lab Routine Type 1 diabetes mellitus with diabetic polyneuropathy (HCC) 1 Occurrences starting 07/17/2019 until 07/17/2020 [facility] Comment on above: 1 Occurrences starting 07/17/2019 until 07/17/2020 End: 11-16-2020 HbA1c (Bld) [Mass fraction] Hemoglobin A1c Lab Routine Type I diabetes mellitus with neurological manifestations, uncontrolled (HCC) 1 Occurrences starting 11/16/2019 until 11/16/2020 [facility] Comment on above: 1 Occurrences starting 11/16/2019 until 11/16/2020 End: 03-13-2020 HbA1c (Bld) [Mass fraction] Hemoglobin A1c Routine 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) 1 Occurrences starting 03/13/2019 until 03/13/2020 [facility] Comment on above: 1 Occurrences starting 03/13/2019 until 03/13/2020 Hematocrit [Volume Fraction] of Blood [facility] Hematocrit [Volume Fraction] of Blood [facility] Hematocrit [Volume Fraction] of Blood [facility] Hemoglobin [Mass/volume] in Blood [facility] Hemoglobin [Mass/volume] in Blood [facility] Hemoglobin [Mass/volume] in Blood [facility] End: 02-19-2022 Hemoglobin A1c/Hemoglobin.total in Blood Hemoglobin A1c Lab Routine Type 1 diabetes mellitus with diabetic polyneuropathy (HCC) 1 Occurrences starting 02/18/2021 until 02/19/2022 [facility] Comment on above: 1 Occurrences starting 02/18/2021 until 02/19/2022 End: 02-14-2023 Hemoglobin A1c/Hemoglobin.total in Blood Hemoglobin A1c Lab Routine Type 1 diabetes mellitus with diabetic neuropathy (HCC) 1 Occurrences starting 02/13/2022 until 02/14/2023 [facility] Comment on above: 1 Occurrences starting 02/13/2022 until 02/14/2023 End: 06-20-2023 Hemoglobin A1c/Hemoglobin.total in Blood Hemoglobin A1c Lab Routine Type 1 diabetes mellitus with diabetic neuropathy (HCC) 1 Occurrences starting 06/19/2022 until 06/20/2023 [facility] Comment on above: 1 Occurrences starting 06/19/2022 until 06/20/2023 End: 02-18-2025 Hemoglobin A1c/Hemoglobin.total in Blood Hemoglobin A1c Lab Routine Type 1 diabetes mellitus with diabetic neuropathy (HCC) 1 Occurrences starting 02/18/2024 until 02/18/2025 [facility] Comment on above: 1 Occurrences starting 02/18/2024 until 02/18/2025 End: 07-22-2025 Hemoglobin A1c/Hemoglobin.total in Blood Hemoglobin A1c Lab Routine Type 1 diabetes mellitus with diabetic neuropathy (HCC) 1 Occurrences starting 07/21/2024 until 07/22/2025 [facility] Comment on above: 1 Occurrences starting 07/21/2024 until 07/22/2025 End: 11-14-2025 Hemoglobin A1c/Hemoglobin.total in Blood Hemoglobin A1c Lab Routine Type 1 diabetes mellitus with diabetic neuropathy (HCC) 1 Occurrences starting 11/13/2024 until 11/14/2025 [facility] Comment on above: 1 Occurrences starting 11/13/2024 until 11/14/2025 End: 03-13-2026 Hemoglobin A1c/Hemoglobin.total in Blood Hemoglobin A1c Lab Routine Type 1 diabetes mellitus with diabetic neuropathy (HCC) 1 Occurrences starting 03/12/2025 until 03/13/2026 [facility] Comment on above: 1 Occurrences starting 03/12/2025 until 03/13/2026 Hemoglobin A1c/Hemoglobin.total in Blood [facility] End: 07-06-2019 Hemoglobin A1c/Hemoglobin.total mass fraction (Bld) Hemoglobin A1c Routine Type 1 diabetes mellitus with diabetic neuropathy (HCC) 1 Occurrences starting 07/05/2018 until 07/06/2019 [facility] Comment on above: 1 Occurrences starting 07/05/2018 until 07/06/2019 End: 11-11-2019 Hemoglobin A1c/Hemoglobin.total mass fraction (Bld) Hemoglobin A1c Routine Type 1 diabetes mellitus with diabetic neuropathy (HCC) 1 Occurrences starting 11/11/2018 until 11/11/2019 [facility] Comment on above: 1 Occurrences starting 11/11/2018 until 11/11/2019 End: 06-18-2018 Hemoglobin A1c/Hemoglobin.total mass fraction (Bld) Hemoglobin A1c Routine Type 1 diabetes mellitus with diabetic neuropathy (HCC) 1 Occurrences starting 06/17/2017 until 06/18/2018 [facility] Work Phone: Comment on above: 1 Occurrences starting 06/17/2017 until 06/18/2018 Heparin unfractionat ed [Units/volume] in Platelet poor plasma by Chromogenic method [facility] Work Phone: Comment on above: As needed (Lab) for 1 Occurrences starti ng 11/26/2023 As needed (Lab) for 30 Occurrences starting 11/26/2023 End: 10-13-2023 Home O2 eval (desaturation screen) Home O2 eval (desaturation screen) Respiratory Care Routine Once for 1 Occurrences starting 10/13/2023 until 10/13/2023 [facility] Service Area Work Phone: Comment on above: Once for 1 Occurrences starting 10/13/20 23 until 10/13/2023 Lactic acid measurement [facility] Lactic acid measurement [facility] Legionella pneumophi la Ag [Presence] in Urine [facility] Leukocytes [#/volume ] in Blood [facility] Leukocytes [#/volume ] in Blood [facility] Leukocytes [#/volume ] in Blood [facility] End: 11-11-2019 Lipid 1996 panel Lipid Panel Routine Type 1 diabetes mellitus with diabetic neuropathy (HCC) 1 Occurrences starting 11/11/2018 until 11/11/2019 [facility] Comment on above: 1 Occurrences starting 11/11/2018 until 11/11/2019 End: 07-17-2020 Lipid 1996 panel Lipid Panel Lab Routine Pure hypercholesterolemia 1 Occurrences starting 07/17/2019 until 07/17/2020 [facility] Comment on above: 1 Occurrences starting 07/17/2019 until 07/17/2020 End: 02-19-2022 Lipid 1996 panel - Serum or Plasma Lipid Panel Lab Routine Type 1 diabetes mellitus with diabetic polyneuropathy (HCC) 1 Occurrences starting 02/18/2021 until 02/19/2022 [facility] Comment on above: 1 Occurrences starting 02/18/2021 until 02/19/2022 End: 02-18-2025 Lipid 1996 panel - Serum or Plasma Lipid Panel Lab Routine Type 1 diabetes mellitus with diabetic neuropathy (HCC) 1 Occurrences starting 02/18/2024 until 02/18/2025 [facility] Comment on above: 1 Occurrences starting 02/18/2024 until 02/18/2025 End: 07-22-2025 Lipid 1996 panel - Serum or Plasma Lipid Panel Lab Routine Type 1 diabetes mellitus with diabetic neuropathy (HCC) 1 Occurrences starting 07/21/2024 until 07/22/2025 [facility] Comment on above: 1 Occurrences starting 07/21/2024 until 07/22/2025 End: 11-14-2025 Lipid 1996 panel - Serum or Plasma Lipid Panel Lab Routine Type 1 diabetes mellitus with diabetic neuropathy (HCC) Pure hypercholesterolemia 1 Occurrences starting 11/13/2024 until 11/14/2025 [facility] Comment on above: 1 Occurrences starting 11/13/2024 until 11/14/2025 End: 03-13-2026 Lipid 1996 panel - Serum or Plasma Lipid Panel Lab Routine Type 1 diabetes mellitus with diabetic neuropathy (HCC) 1 Occurrences starting 03/12/2025 until 03/13/2026 [facility] Comment on above: 1 Occurrences starting 03/12/2025 until 03/13/2026 End: 02-28-2019 Lipid panel Lipid Panel Routine Type 1 diabetes mellitus with diabetic neuropathy (HCC) 1 Occurrences starting 02/28/2018 until 02/28/2019 [facility] Low density lipoprot ein cholesterol measurement [facility] Magnesium measurement [facility] Mean corpuscular hemoglobin concentration determination [facility] Mean corpuscular hemoglobin concentration determination [facility] Mean corpuscular hemoglobin concentration determination [facility] Mean corpuscular hemoglobin determination [facility] Mean corpuscular hemoglobin determination [facility] Mean corpuscular hemoglobin determination [facility] Measurement of renal function [facility] Measurement of renal function [facility] Measurement of renal function [facility] Natriuretic peptide. B prohormone N-Terminal [Mass/volume] in Serum or Plasma [facility] Neutrophil count [facility] Neutrophil count [facility] Neutrophil count [facility] Neutrophil percent differential count [facility] Neutrophil percent differential count [facility] Neutrophil percent differential count [facility] Noninvasive Ventilation Noninvas frank Ventilation Respiratory Care Routine For RT frequency use only for continuous procedures with task-based reminders at 8a and 8p until discontinued starting 11/26/2023 [facility] Work Phone: Comment on above: For RT frequency use only for continuous procedures with task-based reminders at 8a and 8p until discontinued starting 11/26/2023 Patient Education [facility] Work Phone: Patient referral [facility] Work Phone: Platelets [#/volume] in Blood [facility] Platelets [#/volume] in Blood [facility] Platelets [#/volume] in Blood [facility] Potassium measurement [facility] Potassium measurement [facility] Potassium measurement [facility] Procalcitonin [Mass/volume] in Serum or Plasma by Immunoassay [facility] End: 03-12-2020 Prostate specific Ag [Mass/Vol] PSA, Screen Routine Prostate cancer screening 1 Occurrences starting 03/13/2019 until 03/12/2020 [facility] Comment on above: 1 Occurrences starting 03/13/2019 until 03/12/2020 End: 02-13-2023 Prostate specific Ag [Mass/volume] in Serum or Plasma PSA, Screen Lab Routine Prostate cancer screening 1 Occurrences starting 02/13/2022 until 02/13/2023 [facility] Comment on above: 1 Occurrences starting 02/13/2022 until 02/13/2023 Prothrombin time (PT) Protime-IN R Lab STAT As needed (Lab) for 1 Occurrences starting 11/26/2023 [facility] Work Phone: Comment on above: As needed (Lab) for 1 Occurrences starti ng 11/26/2023 End: 10-29-2018 PSA, Screen PSA, Screen Routine Prostate cancer screening 1 Occurrences starting 10/29/2017 until 10/29/2018 [facility] Work Phone: Red blood cell count [facility] Red blood cell count [facility] Red blood cell count [facility] Red cell distributio n width determination [facility] Red cell distributio n width determination [facility] Red cell distributio n width determination [facility] End: 10-11-2023 Respiratory care eval and treat Respiratory care eval and treat Respiratory Care Routine Once for 1 Occurrences starting 10/11/2023 until 10/11/2023 [facility] Work Phone: Comment on above: Once for 1 Occurrences starting 10/11/20 23 until 10/11/2023 Respiratory pathogen s DNA and RNA panel - Respiratory specimen by ALICE with probe detection [facility] Serum chloride measurement [facility] Serum chloride measurement [facility] Serum chloride measurement [facility] Sodium measurement [facility] Sodium measurement [facility] Sodium measurement [facility] End: 10-21-2024 SPECT Heart perfusion NM Myocardial Perfusion Multiple SPECT Imaging Routine Congestive heart failure, unspecified HF chronicity, unspecified heart failure type (HCC) 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 1 Occurrences starting 10/21/2023 until 10/21/2024 [facility] Work Phone: Comment on above: 1 Occurrences starting 10/21/2023 until 10/21/2024 End: 11-11-2019 T4 free mass conc T4, Free Routine Type 1 diabetes mellitus with diabetic neuropathy (HCC) 1 Occurrences starting 11/11/2018 until 11/11/2019 [facility] Comment on above: 1 Occurrences starting 11/11/2018 until 11/11/2019 End: 02-18-2025 Thyrotropin [Units/volume] in Serum or Plasma TSH Lab Routine Type 1 diabetes mellitus with diabetic neuropathy (HCC) 1 Occurrences starting 02/18/2024 until 02/18/2025 [facility] Comment on above: 1 Occurrences starting 02/18/2024 until 02/18/2025 End: 07-22-2025 Thyrotropin [Units/volume] in Serum or Plasma TSH Lab Routine Type 1 diabetes mellitus with diabetic neuropathy (HCC) 1 Occurrences starting 07/21/2024 until 07/22/2025 [facility] Comment on above: 1 Occurrences starting 07/21/2024 until 07/22/2025 End: 11-14-2025 Thyrotropin [Units/volume] in Serum or Plasma TSH Lab Routine Type 1 diabetes mellitus with diabetic neuropathy (HCC) 1 Occurrences starting 11/13/2024 until 11/14/2025 [facility] Comment on above: 1 Occurrences starting 11/13/2024 until 11/14/2025 Thyrotropin [Units/volume] in Serum or Plasma TSH with Reflex Free T4 Lab Routine 02/12/2025 10:25 AM EDT [facility] Work Phone: End: 03-13-2026 Thyrotropin [Units/volume] in Serum or Plasma TSH Lab Routine Type 1 diabetes mellitus with diabetic neuropathy (HCC) 1 Occurrences starting 03/12/2025 until 03/13/2026 [facility] Comment on above: 1 Occurrences starting 03/12/2025 until 03/13/2026 End: 11-11-2019 Thyrotropin Qn TSH Routine Type 1 diabetes mellitus with diabetic neuropathy (HCC) 1 Occurrences starting 11/11/2018 until 11/11/2019 [facility] Comment on above: 1 Occurrences starting 11/11/2018 until 11/11/2019 End: 02-28-2019 Thyroxine (T4) free T4, Free Routine Type 1 diabetes mellitus with diabetic neuropathy (HCC) 1 Occurrences starting 02/28/2018 until 02/28/2019 [facility] End: 02-18-2025 Thyroxine (T4) free [Mass/volume] in Serum or Plasma T4, Free Lab Routine Type 1 diabetes mellitus with diabetic neuropathy (HCC) 1 Occurrences starting 02/18/2024 until 02/18/2025 [facility] Comment on above: 1 Occurrences starting 02/18/2024 until 02/18/2025 End: 07-22-2025 Thyroxine (T4) free [Mass/volume] in Serum or Plasma T4, Free Lab Routine Type 1 diabetes mellitus with diabetic neuropathy (HCC) 1 Occurrences starting 07/21/2024 until 07/22/2025 [facility] Comment on above: 1 Occurrences starting 07/21/2024 until 07/22/2025 End: 11-14-2025 Thyroxine (T4) free [Mass/volume] in Serum or Plasma T4, Free Lab Routine Type 1 diabetes mellitus with diabetic neuropathy (HCC) 1 Occurrences starting 11/13/2024 until 11/14/2025 [facility] Comment on above: 1 Occurrences starting 11/13/2024 until 11/14/2025 End: 03-13-2026 Thyroxine (T4) free [Mass/volume] in Serum or Plasma T4, Free Lab Routine Type 1 diabetes mellitus with diabetic neuropathy (HCC) 1 Occurrences starting 03/12/2025 until 03/13/2026 [facility] Comment on above: 1 Occurrences starting 03/12/2025 until 03/13/2026 Total cholesterol:HD L ratio measurement [facility] Total protein measurement [facility] Total protein measurement [facility] Total protein measurement [facility] Triglycerides measurement [facility] Troponin T.cardiac [Mass/volume] in Serum or Plasma by High sensitivity method [facility] Troponin T.cardiac [Mass/volume] in Serum or Plasma by High sensitivity method [facility] End: 02-28-2019 TSH TSH Routine Type 1 diabetes mellitus with diabetic neuropathy (HCC) 1 Occurrences starting 02/28/2018 until 02/28/2019 [facility] Urea nitrogen [Mass/volume] in Serum or Plasma [facility] Urea nitrogen [Mass/volume] in Serum or Plasma [facility] Urea nitrogen [Mass/volume] in Serum or Plasma [facility] Urine culture [facility] Urine culture [facility] VLDL cholesterol measurement [facility] Immunizations Immunization Date Immunization Notes Care Provider Nancy amor 07-03-2020 zoster vaccine recombinant Ayanna Albert DO Work Phone: [facility] Work Phone: 04-17-2020 zoster vaccine recombinant Ayanna Albert DO Work Phone: [facility] Work Phone: 03-31-2019 pneumococcal polysaccharide vaccine, 23 valent Ayanna Albert DO Work Phone: [facility] Work Phone: 01-31-2018 pneumococcal conjuga te vaccine, 13 valent Ayanna Albert DO Work Phone: [facility] Work Phone: 11-10-2016 [facility]: Payers Date Payer Category Payer Self-pay [id number] 2021 Medicare (Managed Care) [employer] [id number] 2021 Medicare PPO [employer] P [place]AY[place] (PPO) 1.2.840.387108.1.13.385.2. 7.9.064099.314.315 2021 Private Health Insurance [id number] 2015 Medicare [id number] 2.16.840.1.545519.3.249.13 2015 Medicare [id number] 1.2.840.919748.1.13.385.2. 7.3.380504.315 2015 Medicare 1.2.840.557263. 1.13.385.2. 7.3.754234.315 2015 Medicare [id number] 2.16.840.1.511201.3.249.13 1943 Unknown [id number] 2.16.840.1.722754.3.579.2. 9 1943 Unknown [id number] 2.16.840.1.523597.3.579.2. 1068 1943 Unknown [id number] 2.16.840.1.189099.3.579.2. 1068 1943 Unknown [id number] 2.16.840.1.015358.3.579.2. 1068 1943 Unknown [id number] 2.16.840.1.318577.3.579.2. 1068 1943 Unknown [id number] 2.16.840.1.485577.3.579.2. 1068 1943 Unknown [id number] 2.16.840.1.769181.3.579.2. 1068 1943 Unknown [id number] 2.16.840.1.302635.3.579.2. 1068 1943 Unknown [id number] 2.16.840.1.870031.3.579.2. 1068 1943 Unknown [id number] 2.16.840.1.501913.3.579.2. 1068 1943 Unknown [id number] 2.16.840.1.812169.3.579.2. 1068 1943 Unknown [id number] 2.16.840.1.712944.3.579.2. 356 1943 Unknown [id number] 2.16.840.1.410665.3.579.2. 1244 1943 Unknown [id number] 2.16.840.1.543521.3.579.2. 1244 1943 Unknown [id number] 2.16.840.1.625536.3.579.2. 1244 1943 Unknown [id number] 2.16.840.1.997124.3.579.2. 1943 Unknown [id number] 2.16.840.1.881748.3.579.2. 90 1943 Unknown [id number] 2.16.840.1.718145.3.579.2. 1243 1943 Unknown [id number] 2.16.840.1.123376.3.579.2. 903 1943 Unknown [id number] 2.16.840.1.820016.3.579.2. 903 1943 Unknown [id number] 2.16.840.1.240637.3.579.2. 1943 Unknown [id number] 2.16.840.1.723662.3.579.2. 903 1943 Unknown [id number] 2.16.840.1.483797.3.579.2. 1943 Unknown [id number] 2.16.840.1.140331.3.579.2. 903 1943 Unknown [id number] 2.840.1.222517.3.579.2. 1943 Unknown [id number] 2.16.840.1.664462.3.579.2. 90 1943 Unknown [id number] 2.16.840.1.607357.3.579.2. 1943 Unknown [id number] 2.16.840.1.020665.3.579.2. 903 1943 Unknown [id number] 2.16.840.1.640174.3.579.2. 90 1943 Unknown [id number] 2.16.840.1.600396.3.579.2. 903 1943 Unknown [id number] 2.16.840.1.937248.3.579.2. 903 1943 Unknown [id number] 2.16.840.1.115561.3.579.2. 903 1943 Unknown [id number] 2.16.840.1.352255.3.579.2. 1244 1943 Unknown [id number] 2.840.1.923222.3.579.2. 1244 1943 Unknown [id number] 2.16840.1.459687.3.579.2. 1244 Unknown [employer] Unknown [id number] 2.16840.1.387721.3.579.2. 462 Unknown [id number] 2.840.1.440419.3.579.2. 462 Unknown [id number] 2.840.1.695934.3.579.2. 462 Unknown [id number] 2.840.1.335492.3.579.2. 462 Unknown [id number] 2.840.1.678012.3.579.2. 462 Unknown [id number] 2.840.1.063771.3.579.2. 462 Unknown [id number] 2.840.1.076967.3.579.2. 462 Unknown [id number] 2.840.1.941588.3.579.2. 462 Unknown [id number] 2.840.1.852555.3.579.2. 462 Unknown [id number] 2.840.1.576237.3.579.2. 462 Unknown [id number] 2.840.1.120349.3.579.2. 462 Unknown [id number] 2.840.1.102134.3.579.2. 462 Unknown [id number] 2.16840.1.822772.3.579.2. 462 Unknown [id number] 2.16840.1.860431.3.579.2. 462 Unknown [id number] 2.16840.1.354739.3.579.2. 462 Unknown [id number] 2.840.1.167946.3.579.2. 462 Unknown [id number] 2.16.840.1.863755.3.579.2. 462 Unknown [id number] 2.16.840.1.506027.3.579.2. 462 Unknown [id number] 2.16.840.1.422677.3.579.2. 462 Unknown [id number] 2.16.840.1.409329.3.579.2. 462 Unknown [id number] 2.16.840.1.827861.3.579.2. 462 Unknown [id number] 2.840.1.111256.3.579.2. 462 Unknown [id number] 2.840.1.022794.3.579.2. 462 Unknown [id number] 2.840.1.575632.3.579.2. 462 Unknown [id number] 2.840.1.783388.3.579.2. 462 Unknown [id number] 2.840.1.369694.3.579.2. 462 Unknown [id number] 2.840.1.761935.3.579.2. 462 Unknown [id number] 2.840.1.240108.3.579.2. 462 Unknown [id number] 2.840.1.231077.3.579.2. 462 Unknown [id number] 2.840.1.494218.3.579.2. 462 Unknown [id number] 2.840.1.236752.3.579.2. 462 Unknown [id number] 2.840.1.165832.3.579.2. 462 Unknown [id number] 2.840.1.214128.3.579.2. 462 Unknown [id number] 2.840.1.143053.3.579.2. 462 Unknown [id number] 2.16.840.1.341237.3.579.2. 462 Unknown [id number] 2.16.840.1.971589.3.579.2. 462 Unknown [id number] 2.16.840.1.690496.3.579.2. 462 Unknown [id number] 2.16.840.1.238135.3.579.2. 462 Unknown [id number] 2.16.840.1.408571.3.579.2. 462 Unknown [id number] 2.16.840.1.865821.3.579.2. 462 Unknown [id number] 2.16.840.1.750576.3.579.2. 462 Social History Date Type Detail Facility Start: 02-28-2018 End: 05-07-2025 Tobacco smoking status RIIS Current every day smoker [facility] Work Phone: Start: 02-28-2018 End: 10-11-2023 Cigarettes smoked current (pack per day) - Reported [facility] Start: 1945 Sex Assigned At Not on file [facility] Work Phone: Start: 07-17-2019 End: 03-12-2025 Alcohol intake Current non-drinker of alcohol (finding) [facility] Start: 06-18-2020 End: 05-01-2025 Tobacco use and exposure Never used [facility] Start: 02-03-2022 End: 02-26-2025 Exposure to SARS-CoV-2 (event) Not sure [facility] Start: 11-01-1965 History of tobacco use Cigarette Smoker [facility] Start: 10-19-2022 End: 10-11-2023 Tobacco use panel [facility] Start: 08-25-2023 End: 05-01-2025 Alcohol intake Lifetime non-drinker (finding) [facility] Work Phone: How hard is it for y ou to pay for the very basics like food, housing, medical care, and heating Not hard at all [facility] In the past 12 month s, was there a time when you were not able to pay the mortgage or rent on time? No [facility] Work Phone: Start: 1945 Sex Assigned At Male [facility] Start: 10-11-2023 Gender identity Identifies as male gender (finding) [facility] Work Phone: Start: 10-11-2023 Sexual orientation Heterosexual (finding) [facility] Work Phone: Start: 08-05-2021 Tobacco smoking status NHIS Unknown if ever smoked [facility] (I/We) worried wheth er (my/our) food would run out before (I/we) got money to buy more. Never true [facility] Start: 02-09-2025 Sex Male (finding) [facility] Start: 05-01-2025 Tobacco smoking status NHIS Ex-smoker [facility] History of tobacco use Current smoker [facility] Work Phone: Medical Equipment Procedure Code Equipment Code Equipment Origin al Text Equipment Identifier Dates [id number] Start: 08-12-2015 End: 03-13-2019 USE DIRECTED FOUR TIMES A DAY FOR INSULIN INJECTION [id number] Start: 09-12-2018 E10.9 Use as directed 4 times per day. [id number] Start: 06-10-2017 use as directed 4 times per day for insulin injection. [id number] Start: 06-17-2017 use as directed 4 times per day for insulin injection. [id number] Start: 05-19-2016 End: 06-17-2017 Use as directed 4 times per day. Dx E10.9 Patient with type 1 DM on insulin with hypoglycemia. Needs to check BG QID; takes insulin QID . [id number] Start: 03-13-2019 Use as directed 4x daily DX code E10.65 . [id number] Start: 10-20-2019 Use as directed 4 times per day. Dx E10.9 Patient with type 1 DM on insulin with hypoglycemia. Needs to check BG QID; takes insulin QID . [id number] Start: 03-15-2020 End: 02-18-2021 Use as directed 4x daily DX code E10.65 . [id number] Start: 10-07-2020 End: 10-08-2021 Use as directed 4 times per day. Dx E10.9 Patient with type 1 DM on insulin with hypoglycemia. Needs to check BG QID; takes insulin QID . [id number] Start: 02-18-2021 End: 02-13-2022 Use as directed 4x daily DX code E10.65 . [id number] Start: 10-09-2021 End: 12-31-2022 Use as directed 4 times per day. Dx E10.9 Patient with type 1 DM on insulin with hypoglycemia. Needs to check BG QID; takes insulin QID . [id number] Start: 02-13-2022 End: 02-19-2023 Use as directed 4x daily DX code E10.65 . [id number] Start: 12-31-2022 Use as directed 4 times per day. Dx E10.9 Patient with type 1 DM on insulin with hypoglycemia. Needs to check BG QID; takes insulin QID . [id number] Start: 02-19-2023 End: 03-06-2024 BD Jolynn 2nd Gen Pen Needle 32 gauge x 5/32 needle [id number] Start: 07-01-2023 Use as directed 4 times per day. Dx E10.9 Patient with type 1 DM on insulin with hypoglycemia. Needs to check BG QID; takes insulin QID . [id number] Start: 02-19-2023 Use as directed 4x daily Dx code E10.65 . [id number] Start: 12-01-2023 End: 12-08-2024 TEST BLOOD GLUCO SE FOUR TIMES DAILY E10.65 . [id number] Start: 03-06-2024 End: 04-16-2025 Use as directed 4x daily Dx code E10.65 . [id number] Start: 12-08-2024 Blood Sugar Diagnostic (Contour Next Test Strips) strip Start: 09-12-2024 Blood Sugar Diagnostic (Contour Next Test Strips) strip Start: 09-12-2024 Blood Sugar Diagnostic (Contour Next Test Strips) strip Start: 09-12-2024 TEST BLOOD GLUCO SE FOUR TIMES DAILY E10.65 . [id number] Start: 04-17-2025 Goals Date Patient Goal Desired Activity /State Functional Status Date Assessment Result Facility 05-09-2025 Functional status Ambulates [facility] Work Phone: 04-22-2025 Functional status Ambulates [facility] Work Phone: 04-21-2025 Functional status Well [facility] Work Phone: 04-10-2025 Functional status Chair [facility] Work Phone: Mental Status Date Assessment Result Facility 05-09-2025 Cognitive function Voice/Name [facility] Work Phone: 04-22-2025 Cognitive function Voice/Name [facility] Work Phone: 04-10-2025 Cognitive function Voice/Name [facility] Work Phone: Clinical Notes 02-18-2021 to 05-09-2025 Note Date & Type Note Facility 05-09-2025 Discharge summary Note Date/Time May 09, 2025 3:56p m [facility] Medical Records Department [address] [place] [address] Discharge Summary 05/09/25 1542 MR#: [id number] Acct: [id number] Name: ENOC ARMANDO Rep #:[id number] : 1945 79 From: Malika Fonseca DO PCP: Dr. Ryley Jeter MD Status:ADM IN Location: [place] [address] Providers Date of Admission: 05/05/25 Primary Care [...] plated and did recommend he follow-up with maintenance person. Patient has a follow-up appointment with pulmonary [...] 93.3 H, Lymph % (Auto) 4.3 L, [place] % (Auto) 1.6, Eos % (Auto) 0.0, [...] Referrals / Follow Up: [facility] [Provider Group] - 05/24/25 10:15 am Ryley Jeter MD [Primary Care Provider] - Within 2 Weeks Disposition Disposition (needs filled in before D/C Order can be placed): Home, Self Care Charges/Coding Visit Charges Inpatient E&M: 58271 Disch Hosp >30min 05/09/25 1556 <Electronically signed by Malika Fonseca DO> Cosigner Signature (if applicable): CC: Dr. Ryley Jeter MD; Dr. Malika Fonseca DO~ Signed [facility] Work Phone: 1([phone]) 772-958107-09-2025 Progress note Author Malika Fonseca [facility] Note Date/Time May 09, 2025 2:41p m [facility] Medical Records Department [address] [place] [address] Progress Note - Hospitalist 05/09/25 0753 MR#: [id number] Acct: [id number] Name: ENOC ARMANDO Rep #:[id number] : 1945 79 From: Malika Fonseca DO PCP: Dr. Ryley Jeter MD Status:ADM IN Location: [place] [address] Reason for Visit Reason for Visit: Diagnoses [...] specified abnormal findings of blood chemistry (05/05/25) FPC (current) use of insulin (05/05/25) Subjective Subjective [...] 93.3 H, Lymph % (Auto) 4.3 L, [place] % (Auto) 1.6, Eos % (Auto) 0.0, [...] oxygen evaluation. Charges/Coding Visit Charges Inpatient E&M: 82218 Subs Hosp L2 05/09/25 6237 <Electronically signed by Malika Fonseca DO> Cosigner Signature (if applicable): CC: ~ Signed [facility] Work Phone: 1(955) 202-630007-09-2025 [facility]07-08-2025 Progress note Author Malika Fonseca [facility] Note Date/Time May 08, 2025 2:36p m [facility] Medical Records Department [address] [place] [address] Progress Note - Hospitalist 05/08/25811 MR#: [id number] Acct: [id number] Name: ENOC ARMANDO Rep #:[id number] : 1945 79 From: Malika Fonseca DO PCP: Dr. 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 Charges/Coding Visit Charges Inpatient E&M: 45814 Subs Hosp L2 05/08/25 1436 <Electronically signed by Malika Fonseca DO> Cosigner Signature (if applicable): CC: ~ Signed [facility] Work Phone: 1(402) 704-826807-07-2025 Progress note Author Malika Fonseca [facility] Note Date/Time May 07, 2025 4:20p m [facility] Medical Records Department [address] [place] [address] [place] [address] Progress Note - Hospitalist 07/07/25 0907 MR#: [id number] Acct: [id number] Name: ENOC ARMANDO Rep #:[id number] : 1945 79 From: Malika Fonseca DO PCP: Dr. Ryley Jeter MD Status:ADM IN Location: [place] [address] Reason for Visit Reason for Visit: Diagnoses [...] specified abnormal findings of blood chemistry (05/05/25) terminal clerk (current) use of insulin (05/05/25) Subjective Subjective [...] (Auto) 79.5 H, Lymph % (Auto) 13.1 L,[place] % (Auto) 6.5, Eos % (Auto) 0.0, [...] 1-2 days. Charges/Coding Visit Charges Inpatient E&M: 35755 Subs Hosp L2 05/07/25 1620 <Electronically signed by Malika Fonseca DO> Cosigner Signature (if applicable): CC: ~ Signed [facility] Work Phone: 1(407) 511-606607-06-2025 Progress note Author Carlita Raygoza [facility] Note Date/Time May 06, 2025 3:49p m [facility] Medical Records Department [address] [place] [address] Progress Note - Hospitalist 05/06/25 0741 MR#: [id number] Acct: [id number] Name: ENOC ARMANDO Rep #:[id number] : 1945 79 From: Carlita Raygoza DO PCP: Dr. Ryley Jeter MD Status:ADM IN Location: [place] [address] Reason for Visit Reason for Visit: Shortness of breath Subjective Subjective Patient states he is feeling much better. He states that his breathing was so bad he felt like he was going to . He states that his land law examiner is havinghim push fluid and his international student counselor is restricting fluids so he is a [...] 81.8 H, Lymph % (Auto) 9.3 L, [place] % (Auto) 7.2, Eos % (Auto) 0.8, [...] 115 H* [place] [address] H, Total Protein 6.4, Albumin 3.9, Globulin 2.5, Albumin/Globulin Ratio 1.5 05/05/25 20:50: Urine Color Yellow, Urine Clarity Clear, Urine pH 6.0, Ur Specific [place] 1.015, Urine Protein 30 H, Urine Glucose [...] 94.3 H, Lymph % (Auto) 3.4 L, [place] % (Auto) 1.7, Eos % (Auto) 0.0, [...] Alkaline Phosphatase 72, [place] [address] H, Total Protein 5.7 L, Albumin 3.3 [...] may reflect edema or pneumonia. Reading Location: [facility] Physical Exam Const alert, oriented x3, no [...] him follow-up as an outpatient with his international student counselor Dr. Small in [place] - Fluid restricted 1500 cc daily - [...] failure - Will leave to his outpatient international student counselor for further evaluation but I do wonder [...] no intubation Charges/Coding Visit Charges Inpatient E&M: 36934 Subs Hosp L2 05/06/25 1549 <Electronically signed by Carlita Raygoza DO> Cosigner Signature (if applicable): CC: ~ Signed [facility] Work Phone: 1(213) 107-268907-06-2025 History and physical note Author Nancy Henson [facility] Note Date/Time May 06, 2025 6:48a m [facility] Medical Records Department [address] [place] [address] H&P Exam - Hospitalist 05/05/25 MR#: [id number] Acct: [id number] Name: ENOC ARMANDO Rep #:[id number] : 1945 79 From: Nancy Lee DO PCP: Dr. Ryley Jeter MD Status:ADM IN Location: [place] [address] HPI - General General Date of Admission: [...] catheter placed during that admission along with oqqkk-vn-gxqprkc anemia with hemoglobin dropping to 6.9 g/dL [...] without intubation CODE STATUS who re-presents to [facility] ER complaining of shortness of breath. Mr. [...] by clinical evidence of AE COPD with Xcxbn-sw-Oollahs Hypoxic Respiratory Failure; requiring BiPAP with Leukocytosis [...] 2 midnights. [facility] Medical History (Updated 05/06/25 @ 01:25 by [...] AdvReac Other Verified 04/03/25 00:16 (Glucocorticoids) (steroids) Mgnbrhu-FAK-QnS Reductase AdvReac Other Verified 04/03/25 00:16 Inhibitor (Zpkoqji-Wyu-Trr Reductase Inhibitor) Family History Mother COPD (chronic [...] 81.8 H, Lymph % (Auto) 9.3 L, [place] % (Auto) 7.2, Eos % (Auto) 0.8, [...] 115 H* D, [place] [address] H, Total Protein 6.4, Albumin 3.9, Globulin 2.5, Albumin/Globulin Ratio 1.5 05/05/25 20:50: Urine Color Yellow, Urine Clarity Clear, Urine pH 6.0, Ur Specific [place] 1.015, Urine Protein 30 H, Urine Glucose [...] may reflect edema or pneumonia. Reading Location: [facility] Assessment & Plan Assessment/Plan (1) CHF exacerbation: [...] mellitus complication status: without complication Diabetes mellitus fpc insulin use: with parts counterman use Qualified Code(s): E11.9 - Type 2 diabetes mellitus without complications; Z79.4 - terminal clerk (current) use of insulin PLAN: Plan 1. [...] and maintain statin. 3. AE COPD with Kphlx-hv-Zgiyuwl Hypoxic Respiratory Failure; requiring BiPAP complicating #1 [...] catheter placed during that admission along with ypbsd-yc-rxanrpg anemia with hemoglobin dropping to 6.9 g/dL [...] plus sciatica - Give acetaminophen prn for fhge-kh-arjpokzf (level 1-5/10) pain or fever. 16. DVT prophylaxis - Heparin 5,000U sq TIS plus SCD's. Total time: Approximately (but not less than) 75 minutes. Charges/Coding Visit Charges Inpatient E&M: 58401 Init Hosp L3 05/06/25 0648 <Electronically signed by Nancy Rizzo DO> Cosigner Signature (if applicable): CC: Dr. Ryley Jeter MD; Dr. Nancy Rizzo DO~ Signed [facility] Work Phone: 1([phone]) 357-902907-05-2025 Discharge summary Author Curtis Amor [facility] Note Date/Time May 05, 2025 9:45p m [facility] Medical Records Department [address] [place] [address] Emergency Department Summary 05/05/25 MR#: [id number] Acct: [id number] Name: ENOC ARMANDO Rep #:[id number] : 1945 79 From: Curtis Amor DO [...] respiratory distress therefore acute care caveat applies [facility] Medical History HFrEF (heart failure with [...] AdvReac Other Verified 04/03/25 00:16 (Glucocorticoids) (steroids) Yiltafc-RSG-FqL Reductase AdvReac Other Verified 04/03/25 00:16 Inhibitor (Xiozycs-Lwq-Oyq Reductase Inhibitor) Family History Mother COPD (chronic [...] 81.8 H Lymph % (Auto) 9.3 L [place] % (Auto) 7.2 Eos % (Auto) 0.8 [...] 115 H* [place] [address] H Total Protein 6.4 Albumin 3.9 Globulin 2.5 Albumin/Globulin Ratio 1.5 Urine Color Yellow Urine Clarity Clear Urine pH 6.0 Ur Specific [place] 1.015 Urine Protein 30 H Urine Glucose [...] may reflect edema or pneumonia. Reading Location: [facility] Discharge Plan Triage Chief Complaint: Shortness of [...] MD [Primary Care Provider] - Print Language: Citizen Of [place] Disposition Disposition: Acute Care Hospital [facility] What to do if you have Problems For any increased pain, shortness of breath, bleeding, nausea or vomiting, chestpain, or any unexpected problems, contact your Primary Care Provider. Call [facility] ([phone]) or report to the closest Emergency Room. Call 911 if necessary. 05/05/252144 <Electronically signed by Curtis Amor DO> Cosigner Signature (if applicable): CC: Dr. Ryley Jeter MD ~ Signed [facility] Work Phone: 1([phone]) 540-118207-05-2025 Radiology Diagnostic study [facility]07-01-2025 Hospital Discharge instructionsAdditional Instructions You had [...] pulmonary function test, sleep study would be indicated.[facility] Work Phone: 1([phone]) 740-330707-01-2025 Evaluation + Plan note* Assessment & Plan [...] [place], may need erythropoietin or iron infusions [facility] Work Phone: 1([phone]) 956-260007-01-2025 Miscellaneous Notes* Assessment & Plan Note - [...] [place], may need erythropoietin or iron infusions * [...] day continueto hold amlodipine documented in this [facility] Work Phone: 1(907) 434-472307-01-2025 Evaluation + Plan note* Assessment & Plan [...] dose of insulins can be adjusted [facility] Work Phone: [phone]) 687-446107-01-2025 Evaluation + Plan note* Assessment & Plan Note - CULLEN Guzmán DNP - 05/01/2025 12:09 PM EDTAssociated Problem(s): Essential hypertension Blood pressure has been well-controlled at home, is normally in the 120s and 130s, infrequently in the 140s systolically, will continue with lisinopril 5 mg and hydralazine 50 mg twice a day continueto hold amlodipine [facility] Work Phone: 1([phone]) [phone] History of Present illness Narrative* CULLEN Guzmán DNP - 05/01/2025 11:00 AM EDT Subjective Patient ID: Enoc Armando is a 79 y.o. male who presents for Follow-up ([facility]). Patient being seen in follow-up for chronic kidney disease stage III with history of diabetes and hypertension along with systolic heart failure with an ejection fraction of 35% Labs reviewed Laboratory work from April 10 shows H&H of 8.6 and 26.0 Glucose 287 Renal function with a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 [place] % (Auto) 8.0, Eos % (Auto) 0.1, [...] per nephrology yesterday. Cont recommendations as per pulmonary/fish processor note yesterday. We will monitor peripherally over the weekend, but please call us any time if questions or if clinical worsening. Nate Forbes MD 04/07/25 3059 Cosigner Signature (if applicable): CC: ~ Signed [facility]06-07-2025 Progress note Author Jose Moore [facility] Note Date/Time April 07, 2025 3:15p m [facility] Medical Records Department [address] [place] [address] Progress Note - Hospitalist 04/07/25 1450 MR#: [id number] Acct: [id number] Name: ENOC ARMANDO Rep #:[id number] : 1945 79 From: Jose lui MD PCP: Dr. Ryley Jeter MD Status:ADM IN Location: [place] [address] Subjective Subjective Doing well, no issues overnight. [...] 79.0 H, Lymph % (Auto) 12.6 L, [place] % (Auto) 8.0, Eos % (Auto) 0.1, [...] a cardiac cath 2 years ago at [place] and was told he had 2 blockages which were not amenable to revascularization. Records requested from [place]. Further management as per cardiology. 04/06/2025: Breath [...] as above. * Further records requested from [place] as above * cardiology on board 04/06/2025: [place] to be due to demand ischemia though [...] DVT: SCDs Charges/Coding Visit Charges Inpatient E&M: 45429 Subs Hosp L2 04/07/25 1515 <Electronically signed by Jose Moore MD> Cosigner Signature (if applicable): CC: ~ Signed [facility] Work Phone: 1(555) 277-933406-07-2025 Progress note [facility] Medical Records Department [address] [place] [address] Progress Note - Hospitalist 04/07/25 1450 MR#: [id number] Acct: [id number] Name: ENOC ARMANDO Rep #:[id number] : 1945 79 From: Jose lui MD PCP: Dr. Ryley Jeter MD Status:ADM IN Location: [place] [address] Subjective Subjective Doing well, no issues overnight. [...] 79.0 H, Lymph % (Auto) 12.6 L, [place] % (Auto) 8.0, Eos % (Auto) 0.1, [...] a cardiac cath 2 years ago at [place] and was told he had 2 blockages which were not amenable to revascularization. Records requested from [place]. Further management as per cardiology. 04/06/2025: Breath [...] as above. * Further records requested from [place] as above * cardiology on board 04/06/2025: [place] to be due to demand ischemia though [...] DVT: SCDs Charges/Coding Visit Charges Inpatient E&M: 15686 Subs Hosp L2 04/07/25 1515 Cosigner Signature (if applicable): CC: ~ Signed [facility]06-06-2025 Progress note Author Jose Moore [facility] Note Date/Time April 06, 2025 6:25p m [facility] Medical Records Department [address] [place] [address] Progress Note - Hospitalist 04/06/25 1818 MR#: [id number] Acct: [id number] Name: ENOC ARMANDO Rep #:[id number] : 1945 79 From: Jose lui MD PCP: Dr. Ryley Jeter MD Status:ADM [facility] Subjective Subjective Doing well, no [...] (Auto) 83.3 H, Lymph % (Auto) 9.1L, [place] % (Auto) 7.0, Eos % (Auto) 0.0, [...] findings are grossly unchanged. Reading Location: [facility] Rhythm Strip Rhythm Strip: Sinus Rhythm [...] a cardiac cath 2 years ago at [place] and was told he had 2 blockages which were not amenable to revascularization. Records requested from [place]. Further management as per cardiology. 04/06/2025: Breath sounds are improving and he is maintaining nasal cannula after dialysis #Elevated cardiac enzymes: * initial troponin was 58, and only peaked at 76. 2D echo as above. * Further records requested from [place] as above * cardiology on board 04/06/2025: [place] to be due to demand ischemia though [...] DVT: Heparin Charges/Coding Visit Charges Inpatient E&M: 15603 Subs Hosp L2 04/06/25 1825 <Electronically signed by Jose Moore MD> Cosigner Signature (if applicable): CC: ~ Signed [facility] Work Phone: 1(970) 482-168006-06-2025 Progress note [facility] Medical Records Department [address] [place] [address] Progress Note - Hospitalist 04/06/25 1818 MR#: [id number] Acct: [id number] Name: ENOC ARMANDO Rep #:[id number] : 1945 79 From: Jose lui MD PCP: Dr. Ryley Jeter MD Status:ADM IN Location: [place] [address] Subjective Subjective Doing well, no issues overnight [...] (Auto) 83.3 H, Lymph % (Auto) 9.1L, [place] % (Auto) 7.0, Eos % (Auto) 0.0, [...] findings are grossly unchanged. Reading Location: [facility] Rhythm Strip Rhythm Strip: Sinus Rhythm [...] a cardiac cath 2 years ago at [place] and was told he had 2 blockages which were not amenable to revascularization. Records requested from [place]. Further management as per cardiology. 04/06/2025: Breath sounds are improving and he is maintaining nasal cannula after dialysis #Elevated cardiac enzymes: * initial troponin was 58, and only peaked at 76. 2D echo as above. * Further records requested from [place] as above * cardiology on board 04/06/2025: [place] to be due to demand ischemia though [...] DVT: Heparin Charges/Coding Visit Charges Inpatient E&M: 28080 Subs Hosp L2 04/06/25 1825 Cosigner Signature (if applicable): CC: ~ Signed [facility]06-06-2025 Progress note Author Bipin Gonzalez [facility] Note Date/Time April 06, 2025 4:18p m [facility] Medical Records Department [address] [place] [address] Progress Note - Nephrology 04/06/25 1117 MR#: [id number] Acct: [id number] Name: ENOC ARMANDO Rep #:[id number] : 1945 79 From: Bipin JEFFERS PCP: Dr. Ryley Jeter MD Status:ADM IN Location: [place] [address] Documented by User: AURY Davison 04/06/25 11:24 [...] Sl. Cloudy, Urine pH 5.0, Ur Specific [place] 1.020, Urine Protein 100 H, Urine Glucose [...] (Auto) 83.3 H, Lymph % (Auto) 9.1L, [place] % (Auto) 7.0, Eos % (Auto) 0.0, [...] findings are grossly unchanged. Reading Location: [facility] Rhythm Strip Rhythm Strip: Sinus Rhythm [...] stage III (followed by Dr. Albert in [place]), COPD, diabetes mellitus admitted to the hospital [...] stage III (followed by Dr. Albert in [place]), COPD, diabetes mellitus admitted to the hospital [...] and plan reviewed with Dr. Thompson. dw MUSEUM SPECIALIST. BAKARI is typically short lived. hopefully will recover soon. HD today. will reevaluate tomorrow 04/06/25 1124 <Electronically signed by Bipin JEFFERS> Cosigner Signature (if applicable): 04/06/25 1618 <Electronically signed by Denisha Thompson MD> CC: ~ Signed [facility] Work Phone: 1(299) 452-736606-06-2025 Progress note [facility] Medical Records Department [address] [place] [address] Progress Note - Nephrology 04/06/25 1117 MR#: [id number] Acct: [id number] Name: ENOC ARMANDO Rep #:[id number] : 1945 79 From: Bipin JEFFERS PCP: Dr. Ryley Jeter MD Status:ADM IN Location: [place] [address] Documented by User: AURY Davison 04/06/25 11:24 [...] Sl. Cloudy, Urine pH 5.0, Ur Specific [place] 1.020, Urine Protein 100 H, Urine Glucose [...] (Auto) 83.3 H, Lymph % (Auto) 9.1L, [place] % (Auto) 7.0, Eos % (Auto) 0.0, [...] findings are grossly unchanged. Reading Location: [facility] Rhythm Strip Rhythm Strip: Sinus Rhythm [...] stage III (followed by Dr. Albert in [place]), COPD, diabetes mellitus admitted to the hospital [...] stage III (followed by Dr. Albert in [place]), COPD, diabetes mellitus admitted to the hospital [...] and plan reviewed with Dr. Thompson. jr MUSEUM SPECIALIST. BAKARI is typically short lived. hopefully will recover soon. HD today. will reevaluate tomorrow 04/06/25 1124 Cosigner Signature (if applicable): 04/06/25 1618 CC: ~ Signed [facility]06-06-2025 Progress note Author Smooth Luis [facility] Note Date/Time April 06, 2025 11:24 am [facility] Medical Records Department [address] [place] [address] Progress Note - Surgery 04/06/25 1123 MR#: [id number] Acct: [id number] Name: ENOC ARMANDO Rep #:[id number] : 1945 79 From: Smooth Luis MD PCP: Dr. Ryley Jeter MD Status:ADM IN Location: [place] [address] 1 Subjective Subjective Patient seen on rounds [...] Sl. Cloudy, Urine pH 5.0, Ur Specific [place] 1.020, Urine Protein 100 H, Urine Glucose [...] (Auto) 83.3 H, Lymph % (Auto) 9.1L, [place] % (Auto) 7.0, Eos % (Auto) 0.0, [...] findings are grossly unchanged. Reading Location: [facility] Rhythm Strip Rhythm Strip: Sinus Rhythm [...] Cosigner Signature (if applicable): CC: ~ Signed [facility] Work Phone: 1(547) 813-251106-06-2025 Progress note Author Landry Fagan [facility] Note Date/Time April 06, 2025 9:42a m [facility] Medical Records Department [address] [place] [address] Progress Note - Extension Service Specialist 04/06/25 0938 MR#: [id number] Acct: [id number] Name: ENOC ARMANDO Rep #:[id number] : 1945 79 From: Landry Fagan DO PCP: Dr. Ryley Jeter MD Status:ADM IN Location: [place] [address] Assessment & Plan Assessment/Plan (1) Acute hypoxic [...] without intubation This note was generated with [employer] dictation software. It may contain incorrectwords, spelling, [...] Sl. Cloudy, Urine pH 5.0, Ur Specific [place] 1.020, Urine Protein 100 H, Urine Glucose [...] (Auto) 83.3 H, Lymph % (Auto) 9.1L, [place] % (Auto) 7.0, Eos % (Auto) 0.0, [...] findings are grossly unchanged. Reading Location: [facility] Rhythm Strip Rhythm Strip: Sinus Rhythm [...] affect normal Charges/Coding Visit Charges Inpatient E&M: 19861 Subs Hosp L2 04/06/25 0942 <Electronically signed by Landry Fagan DO> Cosigner Signature (if applicable): CC: ~ Signed [facility] Work Phone: 1(337) 117-475106-06-2025 Progress note [facility] Medical Records Department [address] [place] [address] Progress Note - Surgery 04/06/25 1123 MR#: [id number] Acct: [id number] Name: ENOC ARMANDO Rep #:[id number] : 1945 79 From: Smooth Luis MD PCP: Dr. Ryley Jeter MD Status:ADM IN Location: [place] [address] 1 Subjective Subjective Patient seen on rounds [...] Sl. Cloudy, Urine pH 5.0, Ur Specific [place] 1.020, Urine Protein 100 H, Urine Glucose [...] (Auto) 83.3 H, Lymph % (Auto) 9.1L, [place] % (Auto) 7.0, Eos % (Auto) 0.0, [...] findings are grossly unchanged. Reading Location: [facility] Rhythm Strip Rhythm Strip: Sinus Rhythm [...] Cosigner Signature (if applicable): CC: ~ Signed [facility]06-06-2025 Progress note [facility] Medical Records Department [address] [place] [address] Progress Note - Extension Service Specialist 04/06/25 0938 MR#: [id number] Acct: [id number] Name: ENOC ARMANDO Rep #:[id number] : 1945 79 From: Landry Fagan DO PCP: Dr. Ryley Jeter MD Status:ADM IN Location: [place] [address] Assessment & Plan Assessment/Plan (1) Acute hypoxic [...] without intubation This note was generated with [employer] software. It may contain incorrectwords, spelling, and [...] Sl. Cloudy, Urine pH 5.0, Ur Specific [place] 1.020, Urine Protein 100 H, Urine Glucose [...] (Auto) 83.3 H, Lymph % (Auto) 9.1L, [place] % (Auto) 7.0, Eos % (Auto) 0.0, [...] findings are grossly unchanged. Reading Location: [facility] Rhythm Strip Rhythm Strip: Sinus Rhythm [...] affect normal Charges/Coding Visit Charges Inpatient E&M: 56541 Subs Hosp L2 04/06/25 0942 Cosigner Signature (if applicable): CC: ~ Signed [facility]06-05-2025 Consult note Author Smooth Luis [facility] Note Date/Time April 05, 2025 6:10p m [facility] Medical Records Department [address] [place] [address] Consultation - Surgical 04/05/25 1806 MR#: [id number] Acct: [id number] Name: ENOC ARMANDO Rep #:[id number] : 1945 79 From: Smooth Luis MD PCP: Dr. Ryley Jeter MD Status:ADM IN Location: [address] 1 Assessment & Plan Assessment/Plan (1) CKD (chronic kidney disease), stage III: QUALIFIERS: Chronic kidney disease stage 3 subtype: stage 3b (GFR 30-44) Qualified Code(s): N18.32 - Chronic kidney disease, stage 3b PLAN: Plan Patient is an 79-year-old male with worsening renal function. Transverse Abdominal Muscle Nurse is recommending temporary dialysis. Dialysis catheter was [...] who presented to the emergency department at [facility] several days ago with history of [...] AdvReac Other Verified 04/03/25 00:16 (Glucocorticoids) (steroids) Bteqsxi-LNM-UnY Reductase AdvReac Other Verified 04/03/25 00:16 Inhibitor (Ljhbhlk-Wkj-Fsc Reductase Inhibitor) Family History Mother COPD (chronic [...] 85.5 H, Lymph % (Auto) 5.7 L, [place] % (Auto) 7.7, Eos % (Auto) 0.0, [...] Sl. Cloudy, Urine pH 5.0, Ur Specific [place] 1.020, Urine Protein 100 H, Urine Glucose [...] to prior. Correlate with PSA. Reading Location: [id number] Charges/Coding Visit Charges Inpatient E&M: 44806 Init Hosp L3 04/05/25 1810 <Electronically signed by Smooth Luis MD> Cosigner Signature (if applicable): CC: Dr. Ryley Jeter MD~ Signed [facility] Work Phone: 1(261) 490-259406-05-2025 Radiology Diagnostic study note [facility] Imaging Services [address] [place] [address] CXR for Line Placement MR#: [id number] Acct: [id number] Name: ENOC ARMANDO Rep #: [id number] : 1945 M 79 From: Chely Batista MD PCP: Dr. Ryley Jeter MD Status: ADM IN Study:CXR for Line Placement Date of Exam: 04/05/25 Exam# [id number] Ordering Dr: St dany Luis MD PROCEDURE: CXR FOR LINE PLACEMENT 04/05/2025 REASON FOR EXAM: TEMP HD CATH INSERTION ON RIGHT TECHNIQUE: Single frontal view of the chest COMPARISON: 04/03/2025 RAD/CXR for Line Placement IMPRESSION: Interval insertion of right IJ line with tip at SVC, likely in appropriate position. Lung findings are grossly unchanged. Reading Location: [facility] CC: Dr. Ryley Jeter MD; Dr. Smooth Luis MD ~ Cooker Meal: Signed [facility]06-05-2025 Progress note Author Grace [facility] Note Date/Time April 05, 2025 5:19p m [facility] Medical Records Department [address] [place] [address] Progress Note 04/05/25 1212 MR#: [id number] Acct: [id number] Name: ENOC ARMANDO Rep #:[id number] : 1945 79 From: Grace Arnold MD PCP: Dr. Ryley Jeter MD Status:ADM IN Location: [place] [address] Subjective Subjective Patient seen and examined. He [...] 85.5 H, Lymph % (Auto) 5.7 L, [place] % (Auto) 7.7, Eos % (Auto) 0.0, [...] to prior. Correlate with PSA. Reading Location: [id number]-[id number]-Y Rhythm Strip Rhythm Strip: Sinus Rhythm Rate: [...] a cardiac cath 2 years ago at [place] and was told he had 2 blockages which were not amenable to revascularization. Records requested from [place]. Further management as per cardiology. * #Elevated cardiac enzymes: * initial troponin was 58, and only peaked at 76. 2D echo as above. * Further records requested from [place] as above * cardiology on board * [...] heparin sq. Charges/Coding Visit Charges Inpatient E&M: 50300 Subs Hosp L3 04/05/25 1719 <Electronically signed by Grace Arnold MD> Grace Arnold MD Cosigner Signature (if applicable): CC: ~ Signed [facility] Work Phone: 1(149) 467-749306-05-2025 Procedure note [facility] Medical Records Department [address] [place] [address] Operative Report 04/05/25 1810 MR#: [id number] Acct: [id number] Name: ENOC ARMANDO Rep #:[id number] : 1945 79 From: Smooth Luis MD PCP: Dr. Ryley Jeter MD Status:ADM IN [facility] Problems Associated Problem List Diagnoses (1) CKD (chronic kidney disease), stage III: Procedures Cardiovascular CF Procedures 33xxx-39xxx: 56308 Insert tunneled cv cath Operative Report (Standard) Operative Information Date of Procedure: 04/05/25 Pre-Operative Diagnosis: Renal failure Post-Operative Diagnosis: Renal failure Surgery/Procedure Performed: Right internal jugular temporary dialysis catheter insertion with ultrasound environmental protection officer: No Type of Anesthesia: Local Procedure Start Time: 17:00 Procedure Stop Time: 17:20 Select all DRAINS/GRAFTS/IMPLANTS that apply: Prosthetic device Prosthetic device details: 12 Egyptian temporary dialysis catheter Estimated Blood Loss: 15 [...] Nolen MD; Dr. Nina Lee MD~ Signed [facility]06-05-2025 Consult note [facility] Medical Records Department [address] [place] [address] Consultation - Surgical 04/05/25 1806 MR#: [id number] Acct: [id number] Name: ENOC ARMANDO Rep #:[id number] : 1945 79 From: Smooth Luis MD PCP: Dr. Ryley Jeter MD Status:ADM IN Location: [place] [address] Assessment & Plan Assessment/Plan (1) CKD (chronic kidney disease), stage III: QUALIFIERS: Chronic kidney disease stage 3 subtype: stage 3b (GFR 30-44) Qualified Code(s): N18.32 - Chronic kidney disease, stage 3b PLAN: Plan Patient is an 79-year-old male with worsening renal function. Transverse Abdominal Muscle Nurse is recommending temporary dialysis. Dialysis catheter was [...] who presented to the emergency department at [facility] several days ago with history of [...] AdvReac Other Verified 04/03/25 00:16 (Glucocorticoids) (steroids) Xojfhat-OSL-NfA Reductase AdvReac Other Verified 04/03/25 00:16 Inhibitor (Vytmazo-Qhd-Jfc Reductase Inhibitor) Family History Mother COPD (chronic [...] 85.5 H, Lymph % (Auto) 5.7 L, [place] % (Auto) 7.7, Eos % (Auto) 0.0, [...] Sl. Cloudy, Urine pH 5.0, Ur Specific [place] 1.020, Urine Protein 100 H, Urine Glucose [...] to prior. Correlate with PSA. Reading Location: [id number] Charges/Coding Visit Charges Inpatient E&M: 69802 Init Hosp L3 04/05/25 1810 Cosigner Signature (if applicable): CC: Dr. Ryley Jeter MD~ Signed [facility]06-05-2025 Progress note Author Denisha Thompson [facility] Note Date/Time April 05, 2025 3:20p m [facility] Medical Records Department [address] [place] [address] Progress Note - Nephrology 04/05/25 1518 MR#: [id number] Acct: [id number] Name: ENOC ARMANDO Rep #:[id number] : 1945 79 From: Denisha tirado MD PCP: Dr. Ryley Jeter MD Status:ADM IN Location: [facility] DIQ292- 1 Subjective Subjective he is on bipap [...] 85.5 H, Lymph % (Auto) 5.7 L, [place] % (Auto) 7.7, Eos % (Auto) 0.0, [...] Sl. Cloudy, Urine pH 5.0, Ur Specific [place] 1.020, Urine Protein 100 H, Urine Glucose [...] to prior. Correlate with PSA. Reading Location: HXJ-EOBYGLYXO-M Rhythm Strip Rhythm Strip: Sinus Rhythm Rate: [...] stage III (followed by Dr. Albert in [place]), COPD, diabetes mellitus admitted to the hospital [...] Cosigner Signature (if applicable): CC: ~ Signed [facility] Work Phone: 1(492) 901-209206-05-2025 Progress note [facility] Medical Records Department [address] [place] [address] Progress Note 04/05/25 1212 MR#: [id number] Acct: [id number] Name: ARMANDOENOC KWONG Ariela Rep #:[id number] : 1945 79 From: Grace Arnold MD PCP: Dr. Ryley Jeter MD Status:ADM IN Location: [place] [address] 1 Subjective Subjective Patient seen and examined. [...] 85.5 H, Lymph % (Auto) 5.7 L, [place] % (Auto) 7.7, Eos % (Auto) 0.0, [...] to prior. Correlate with PSA. Reading Location: HYS-EZUGVFRRK-S Rhythm Strip Rhythm Strip: Sinus Rhythm Rate: [...] a cardiac cath 2 years ago at [place] and was told he had 2 blockages which were not amenable to revascularization. Records requested from [place]. Further management as per cardiology. * #Elevated cardiac enzymes: * initial troponin was 58, and only peaked at 76. 2D echo as above. * Further records requested from [place] as above * cardiology on board * [...] heparin sq. Charges/Coding Visit Charges Inpatient E&M: 42605 Subs Hosp 04/05/25 9245 Grace Arnold MD Cosigner Signature (if applicable): CC: ~ Signed [facility]06-05-2025 Progress note Author Barbie Martin [facility] Note Date/Time April 05, 2025 3:10p m [facility] Medical Records Department [address] [place] [address] Progress Note - Cardiology 04/05/25 1459 MR#: [id number] Acct: [id number] Name: ENOC ARMANDO Rep #:[id number] : 1945 79 From: Barbie gibson MD PCP: Dr. Ryley Jeter MD Status:ADM IN Location: [place] [address]- Subjective Subjective Patient denies any chest pain. [...] 85.5 H, Lymph % (Auto) 5.7 L, [place] % (Auto) 7.7, Eos % (Auto) 0.0, [...] Sl. Cloudy, Urine pH 5.0, Ur Specific [place] 1.020, Urine Protein 100 H, Urine Glucose [...] 85.5 H, Lymph % (Auto) 5.7 L, [place] % (Auto) 7.7, Eos % (Auto) 0.0, [...] Sl. Cloudy, Urine pH 5.0, Ur Specific [place] 1.020, Urine Protein 100 H, Urine Glucose [...] to prior. Correlate with PSA. Reading Location: [facility] Physical Exam Const alert HEENT [...] catheterization within the last 2 years at [place]. He also had 2 blockages that were [...] be willing to see him in the [facility] in 7to 10 days after discharge. Charges/Coding Visit Charges Inpatient E&M: 97967 Subs Hosp L2 04/05/25 1510 <Electronically signed by Barbie Martin MD> Cosigner Signature (if applicable): CC: ~ Signed [facility] Work Phone: 1(168) 516-518706-05-2025 Progress note [facility] Medical Records Department [address] [place] [address] Progress Note - Nephrology 04/05/25 1518 MR#: [id number] Acct: [id number] Name: ENOC ARMANDO Rep #:[id number] : 1945 79 From: Denisha tirado MD PCP: Dr. Ryley Jeter MD Status:ADM IN Location: [place] [address] Subjective Subjective he is on bipap Objective [...] 85.5 H, Lymph % (Auto) 5.7 L, [place] % (Auto) 7.7, Eos % (Auto) 0.0, [...] Sl. Cloudy, Urine pH 5.0, Ur Specific [place] 1.020, Urine Protein 100 H, Urine Glucose [...] to prior. Correlate with PSA. Reading Location: [facility] Rhythm Strip Rhythm Strip: Sinus [...] stage III (followed by Dr. Albert in [place]), COPD, diabetes mellitus admitted to the hospital [...] Cosigner Signature (if applicable): CC: ~ Signed [facility]06-05-2025 Progress note [facility] Medical Records Department [address] [place] [address] Progress Note - Cardiology 04/05/25 1459 MR#: [id number] Acct: [id number] Name: ENOC ARMANDO Rep #:[id number] : 1945 79 From: Barbie gibson MD PCP: Dr. Rlyey Jeter MD Status:ADM IN Location: [place] [address] Subjective Subjective Patient denies any chest pain. [...] 85.5 H, Lymph % (Auto) 5.7 L, [place] % (Auto) 7.7, Eos % (Auto) 0.0, [...] Sl. Cloudy, Urine pH 5.0, Ur Specific [place] 1.020, Urine Protein 100 H, Urine Glucose [...] 85.5 H, Lymph % (Auto) 5.7 L, [place] % (Auto) 7.7, Eos % (Auto) 0.0, [...] Sl. Cloudy, Urine pH 5.0, Ur Specific [place] 1.020, Urine Protein 100 H, Urine Glucose [...] to prior. Correlate with PSA. Reading Location: [id number]-X Physical Exam Const alert HEENT normocephalic Eyes [...] catheterization within the last 2 years at [place].He also had 2 blockages that were not [...] be willing to see him in the [facility] in 7to 10 days after discharge. Charges/Coding Visit Charges Inpatient E&M: 87916 Subs Hosp L2 04/05/25 1510 Cosigner Signature (if applicable): CC: ~ Signed [facility]06-05-2025 Consult note Author Bipin Gonzalez [facility] Note Date/Time April 05, 2025 10:03 am [facility] Medical Records Department [address] [place] [address] Consultation - Nephrology 04/04/25 1518 MR#: [id number] Acct: [id number] Name: ENOC ARMANDO Rep #:[id number] : 1945 79 From: Bipin arreola AUTOMATIC SPOOLER OPERATOR-C PCP: Dr. Ryley Jeter MD Status:ADM IN Location: [place] [address] Assessment & Plan Assessment/Plan (1) MADONNA (acute kidney injury): (2) CKD (chronic kidney disease), stage III: QUALIFIERS: Chronic kidney disease stage 3 subtype: stage 3b (GFR 30-44) Qualified Code(s): N18.32 - Chronic kidney disease, stage 3b (3) Acute hypoxic respiratory failure: PLAN: Plan This is an 79-year-old male with past medical history significant for hypertension, CKD stage III (followed by Dr. Albert in [place]), COPD, diabetes mellitus admitted to the hospital [...] has been following with Dr. Ayanna Albert, land law examiner in [place] for history of CKD. Baseline creatinine has [...] AdvReac Other Verified 04/03/25 00:16 (Glucocorticoids) (steroids) Pyrvvji-NXD-LeZ Reductase AdvReac Other Verified 04/03/25 00:16 Inhibitor (Mglwywh-Uzq-Ctr Reductase Inhibitor) Family History Mother COPD (chronic [...] (Auto) 90.4 H, Lymph % (Auto) 4.9L, [place] % (Auto) 4.0, Eos % (Auto) 0.0, [...] MD> CC: Dr. Ryley Jeter MD~ Signed [facility] Work Phone: 1(394) 468-738406-05-2025 Progress note Author Landry Fagan [facility] Note Date/Time April 05, 2025 9:30a m [facility] Medical Records Department [address] [place] [address] Progress Note - Extension Service Specialist 04/05/25818 MR#: [id number] Acct: [id number] Name: ENOC ARMANDO Rep #:[id number] : 1945 79 From: Landry Fagan DO PCP: Dr. Ryley Jeter MD Status:ADM IN Location: [place] [address] Assessment & Plan Assessment/Plan (1) Acute hypoxic [...] without intubation This note was generated with Vou[employer]Diner dictation software. It may contain incorrectwords, spelling, [...] 85.5 H, Lymph % (Auto) 5.7 L, [place] % (Auto) 7.7, Eos % (Auto) 0.0, [...] to prior. Correlate with PSA. 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 Ryley Jeter MD Status:ADM IN Location: [place] [address] Assessment & Plan Assessment/Plan (1) MADONNA (acute kidney injury): (2) CKD (chronic kidney disease), stage III: QUALIFIERS: Chronic kidney disease stage 3 subtype: stage 3b (GFR 30-44) Qualified Code(s): N18.32 - Chronic kidney disease, stage 3b (3) Acute hypoxic respiratory failure: PLAN: Plan This is an 79-year-old male with past medical history significant for hypertension, CKD stage III (followed by Dr. Albert in [place]), COPD, diabetes mellitus admitted to the hospital [...] has been following with Dr. Ayanna Albert, land law examiner in [place] for history of CKD. Baseline creatinine has [...] AdvReac Other Verified 04/03/25 00:16 (Glucocorticoids) (steroids) Kasjxgn-XEU-KnB Reductase AdvReac Other Verified 04/03/25 00:16 Inhibitor (Tamonyb-Tlv-Emg Reductase Inhibitor) Family History Mother COPD (chronic [...] (Auto) 90.4 H, Lymph % (Auto) 4.9L, [place] % (Auto) 4.0, Eos % (Auto) 0.0, [...] 1003 CC: Dr. Ryley Jeter MD~ Signed [facility]06-05-2025 Progress note [facility] Medical Records Department [address] [place] [address] Progress Note - Extension Service Specialist 04/05/25 0819 MR#: [id number] Acct: [id number] Name: ENOC ARMANDO Rep #:[id number] : 1945 79 From: Landry Fagan DO PCP: Dr. Ryley Jeter MD Status:ADM IN Location: [place] [id number]- 1 Assessment & Plan Assessment/Plan (1) Acute [...] without intubation This note was generated with VoulezVousDiner dictation software. It may contain incorrectwords, spelling, [...] 85.5 H, Lymph % (Auto) 5.7 L, [place] % (Auto) 7.7, Eos % (Auto) 0.0, [...] to prior. Correlate with PSA. Reading Location: [facility] Rhythm Strip Rhythm Strip: Sinus [...] affect normal Charges/Coding Visit Charges Inpatient E&M: 05251 Subs Hosp L2 04/05/25 5102 Cosigner Signature (if applicable): CC: ~ Signed [facility] [id number] Radiology Diagnostic study note [facility] Imaging Services [address] [place], [place] [address] Kidney and Bladder MR#: [id number] Acct: [id number] Name: ENOC ARMANDO Rep #: [id number] : 1945 M 79 From: Demetria Mahoney MD PCP: Dr. Ryley Jeter MD Status: ADM IN Study:Kidney and Bladder Date of Exam: 0 04/04/25 Exam# [id number] Ordering Dr: Kesha Arnold MD PROCEDURE: KIDNEY [...] to prior. Correlate with PSA. Reading Location: [facility] CC: Dr. Ryley Jeter MD; Dr. Grace Arnold MD ~ Cooker Meal: Signed [facility]06-04-2025 Progress note Author Grace Arnold [facility] Note Date/Time April 04, 2025 5:42p m [facility] Medical Records Department [address] [place] [address] Progress Note 04/04/25 1121 MR#: [id number] Acct: [id number] Name: ENOC ARMANDO Rep #:[id number] : 1945 79 From: Grace Arnold MD [...] (Auto) 90.4 H, Lymph % (Auto) 4.9L, [place] % (Auto) 4.0, Eos % (Auto) 0.0, [...] a cardiac cath 2 years ago at [place] and was told he had 2 blockages which were not amenable to revascularization. Records requested from [place]. Further management as per cardiology. * #Elevated cardiac enzymes: * initial troponin was 58, and only peaked at 76. 2D echo as above. * Further records requested from [place] as above * cardiology on board * [...] heparin sq. Charges/Coding Visit Charges Inpatient E&M: 62403 Subs Hosp L3 04/04/25 1742 <Electronically signed by Grace Arnold MD> Grace Arnold MD Cosigner Signature (if applicable): CC: ~ Signed [facility] Work Phone: 1(656) 688-149406-04-2025 Progress note [facility] Medical Records Department [address] [place] [address] Progress Note 04/04/25 1121 MR#: [id number] Acct: [id number] Name: ENOC ARMANDO Rep #:[id number] : 1945 79 From: Grace Arnold MD [...] (Auto) 90.4 H, Lymph % (Auto) 4.9L, [place] % (Auto) 4.0, Eos % (Auto) 0.0, [...] a cardiac cath 2 years ago at [place] and was toldhe had 2 blockages which were not amenable to revascularization. Records requested from [place]. Further management as per cardiology. * #Elevated cardiac enzymes: * initial troponin was 58, and only peaked at 76. 2D echo as above. * Further records requested from [place] as above * cardiology on board * [...] heparin sq. Charges/Coding Visit Charges Inpatient E&M: 02190 Subs Hosp L3 04/04/25 1742 Grace Arnold MD Cosigner Signature (if applicable): CC: ~ Signed [facility]06-04-2025 Progress note Author Donte [facility] Note Date/Time April 04, 2025 2:56p m [facility] Medical Records Department [address] [place] [address] Progress Note - Extension Service Specialist 04/04/25 1257 MR#: [id number] Acct: [id number] Name: ENOC ARMANDO Rep #:[id number] : 1945 79 From: Donte Silver PCP: [...] mls @ 15 mls/hr 04/03/25 05:18 IV .[id number] PRN Saline Flush Sodium Chloride 250 mls @ 15 mls/hr 04/03/25 05:18 IV .D53L44B PRN Additional IVPB Infusion Dextrose 250 mls @ 999 mls/hr 04/03/25 13:17 Dextrose 10%-Water IV .Q16M PRN Hypoglycemic Protocol Protocol Dextrose/Sodium Chloride 1,000 mls @ 60 mls/hr 04/03/25 22:35 04/03/25 23:16 IV 60 mls/hr .F18P03K [facility] Administration Insulin Glargine 15 unit 04/04/25 08:50 04/04/25 10:55 Insulin Glargine-Yfgn 100 Unit/Ml Pen SC 15 unit DAILY [facility] Administration Lisinopril 5 mg 04/03/25 10:00 04/03/25 07:58 Lisinopril 5 Mg Tablet PO 5 mg DAILY [facility] Administration Protocol Melatonin 3 mg 04/03/25 05:17 Melatonin 3 Mg Tablet PO QHS PRN PRN INSOMNIA Metoprolol Succinate 25 mg 04/03/25 10:00 04/04/25 10:55 Metoprolol(Xl)Succ 25 Mg Tablet PO 25 mg DAILY [facility] Administration Protocol Nitroglycerin 0.4 mg 04/03/25 05:17 Nitroglycerin (Inpatient Use) 0.4 Mg Tab.Subl SL Q5M PRN CARDIAC/CHEST PAIN Ondansetron HCl 4 mg 04/03/25 05:17 Ondansetron 4 Mg/2 Ml Vial IV Q8H PRN PRN NAUSEA/VOMITING Potassium Chloride 20 meq 04/03/25 08:00 04/04/25 10:50 Potassium Chloride Oral Tablet 20 Meq PO 20 meq BIDCM [facility] Administration Prednisone 40 mg 04/05/25 08:00 Prednisone 20 Mg Tablet PO 04/10/25 08:01 BREAKFAST [facility] Prochlorperazine Edisylate 5 mg 04/03/25 05:17 [...] Hcl 0.4 Mg Capsule PO 0.4 mg TuThSa@7630 [facility] Administration Lab / Micro Data 04/04/25 [...] (Auto) 90.4 H, Lymph % (Auto) 4.9L, [place] % (Auto) 4.0, Eos % (Auto) 0.0, [...] this encounter was done via Telemedicine 04/04/25 0458 <Electronically signed by Donte Nolen MD> Cosigner Signature (if applicable): CC: ~ Signed [facility] Work Phone: 1(756) 261-283806-04-2025 Progress note [facility] Medical Records Department [address] [place] [address] Progress Note - Extension Service Specialist 04/04/25 1257 MR#: [id number] Acct: [id number] Name: ENOC ARMANDO Rep #:[id number] : 1945 79 From: Donte Silver PCP: [...] mls @ 15 mls/hr 04/03/25 05:18 IV .[id number] PRN Saline Flush Sodium Chloride 250 mls @ 15 mls/hr 04/03/25 05:18 IV .[id number] PRN Additional IVPB Infusion Dextrose 250 mls @ 999 mls/hr 04/03/25 13:17 Dextrose 10%-Water IV .Q16M PRN Hypoglycemic Protocol Protocol Dextrose/Sodium Chloride 1,000 mls @ 60 mls/hr 04/03/25 22:35 04/03/25 23:16 IV 60 mls/hr .B70L57B [facility] Administration Insulin Glargine 15 unit 04/04/25 [...] 20 Mg Tablet PO 04/10/25 08:01 BREAKFAST [facility] Prochlorperazine Edisylate 5 mg 04/03/25 05:17 [...] 0.4 Mg Capsule PO 0.4 mg TuTa@1730 [facility] Administration Lab / Micro Data 04/04/25 [...] (Auto) 90.4 H, Lymph % (Auto) 4.9L, [place] % (Auto) 4.0, Eos % (Auto) 0.0, [...] this encounter was done via Telemedicine 04/04/25 8046 Cosigner Signature (if applicable): CC: ~ Signed [facility]06-04-2025 Progress note Author Breezy Campbell [facility] Note Date/Time April 04, 2025 10:35 am [facility] Medical Records Department [address] [place] [address] Progress Note - Cardiology 04/04/25 1028 MR#: [id number] Acct: [id number] Name: ENOC ARMANDO Rep #:[id number] : 1945 79 From: Breezy Campbell MD PCP: Dr. Ryley Jeter MD Status:ADM IN Location: ICU ICU04-1 Subjective Subjective Has not been able to obtain records from [place] for his catheterization within the past 2 [...] (Auto) 90.4 H, Lymph % (Auto) 4.9L, [place] % (Auto) 4.0, Eos % (Auto) 0.0, [...] 90.4 H, Lymph % (Auto) 4.9 L, [place] % (Auto) 4.0, Eos % (Auto) 0.0, [...] catheterization within the last 2 years at [place]. He also had 2 blockages that were [...] be willing to see him in the [facility] in 7to 10 days after discharge. Charges/Coding Visit Charges Inpatient E&M: 46894 Subs Hosp 04/04/25 1032 <Electronically signed by Breezy Campbell MD> Cosigner Signature (if applicable): CC: ~ Signed [facility] Work Phone: [phone]) 517-423506-04-2025 Progress note [facility] Medical Records Department [address] [place] [address] Progress Note - Cardiology 04/04/25 1028 MR#: [id number] Acct: [id number] Name: ENOC ARMANDO Rep #:[id number] : 1945 79 From: Breezy Campbell MD PCP: Dr. Ryley Jeter MD Status:ADM IN Location: ICU ICU04-1 Subjective Subjective Has not been able to obtain records from [place] for his catheterization within the past 2 [...] (Auto) 90.4 H, Lymph % (Auto) 4.9L, [place] % (Auto) 4.0, Eos % (Auto) 0.0, [...] 90.4 H, Lymph % (Auto) 4.9 L, [place] %(Auto) 4.0, Eos % (Auto) 0.0, Baso [...] catheterization within the last 2 years at [place]. He also had 2 blockages that were [...] be willing to see him in the [facility] in 7to 10 days after discharge. Charges/Coding Visit Charges Inpatient E&M: 91937 [facility] Hosp 04/04/25 1035 Cosigner Signature (if applicable): CC: ~ Signed [facility]06-03-2025 Progress note Author Grace [facility] Note Date/Time April 03, 2025 5:08p m [facility] Medical Records Department [address] [place] [address] Progress Note 04/03/25 1352 MR#: [id number] Acct: [id number] Name: ENOC ARMANDO Rep #:[id number] : 1945 79 From: Grace Arnold MD [...] 76.4 H, Lymph % (Auto) 13.5 L, [place] % (Auto) 7.0, Eos % (Auto) 1.9, [...] (Auto) 94.8 H, Lymph % (Auto) 3.3L, [place] % (Auto) 1.1, Eos % (Auto) 0.0, [...] possibly multifocal congestion and/or pneumonia. [facility] Chest CTA 04/03/25 02:34 IMPRESSION: Mild bilateral pleural effusions. Passive atelectatic airspace disease/airspace consolidations of the lower lobes. Bilateral chronic perihilar interstitial pulmonary thickening with associated mild multifocal ground-glass densities, possibly superimposed pneumonia. Mild diffuse spondylosis. No CT evidence of pulmonary embolus or aortic dissection. Reading Location[facility] Echocardiogram 04/03/25 05:55 Interpretation Summary [...] 32 mins Charges/Coding Visit Charges Inpatient E&M: 58948 PROLNG IP/OBS E/M EA 15 MIN 04/03/25 1705 <Electronically signed by Grace Arnold MD> rGace Arnold MD Cosigner Signature (if applicable): CC: [...] Signature (if applicable): Date cc: ~* Signed [facility] Work Phone: 1(155) 259-725106-03-2025 Consult note Author Breezy Campbell [facility] Note Date/Time April 03, 2025 4:52p m [facility] Medical Records Department [address] [place] [address] Consultation - Cardiology 04/03/25 1630 MR#: [id number] Acct: [id number] Name: ENOC ARMANDO Rep #:[id number] : 1945 79 From: Breezy Campbell MD [...] left heart catheterization a year ago in [place] we will try to obtain those records [...] I will try to obtain records from [place] to see if this is new but [...] Will try to obtain cardiovascular records from [place] from last year. 2. Continue current medical therapy. 3. Will follow along with you as the patient recovers from his pulmonary insufficiency we may need to alter his cardiovascular medical therapy. 4. The patient does not routinely see a international student counselor by his report. We will behappy to [...] last year he underwentleft heart catheterization in [place] and that revealed 2 blocked arteries that [...] AdvReac Other Verified 04/03/25 00:16 (Glucocorticoids) (steroids) Neakkwr-MUV-YnX Reductase AdvReac Other Verified 04/03/25 00:16 Inhibitor (Tfsfbjp-Plk-Fdp Reductase Inhibitor) Family History Mother COPD (chronic [...] 20% Risk Charges/Coding Visit Charges Inpatient E&M: 82698 Init Hosp L3 Objective Data Vital Signs: [...] 76.4 H, Lymph % (Auto) 13.5 L, [place] % (Auto) 7.0, Eos % (Auto) 1.9, [...] (Auto) 94.8 H, Lymph % (Auto) 3.3L, [place] % (Auto) 1.1, Eos % (Auto) 0.0, [...] 76.4 H, Lymph % (Auto) 13.5 L, [place] % (Auto) 7.0, Eos % (Auto) 1.9, Baso % (Auto) 0.6, Absolute Neuts (auto) 12.0 H, Nucleated RBC % 0, PT 13.4, INR 1.0,APTT 37.3 H, D-Dimer Quant (PE/DVT) 1.86 H*, Sodium 139, Potassium 4.4, Pqzbmbvx893, Carbon Dioxide 20.8 L, Anion Gap 14, [...] 94.8 H, Lymph % (Auto) 3.3 L, [place] % (Auto) 1.1, Eos % (Auto) 0.0, [...] possibly multifocal congestion and/or pneumonia. Reading [facility] Chest CTA 04/03/25 02:34 IMPRESSION: Mild bilateral pleural effusions. Passive atelectatic airspace disease/airspace consolidations of the lower lobes. Bilateral chronic perihilar interstitial pulmonary thickening with associated mild multifocal ground-glass densities, possibly superimposed pneumonia. Mild diffuse spondylosis. No CT evidence of pulmonary embolus or aortic dissection. Reading Location: [facility] Echocardiogram 04/03/25 05:55 Interpretation Summary [...] By: Fiordaliza Edgar RDCS and Student 04/03/25 5557 <Electronically signed by Breezy Campbell MD> Cosigner Signature (if applicable): CC: Dr. Ryley Jeter MD~ Signed [facility] Work Phone: [phone]) 875-431906-03-2025 Progress note [facility] Medical Records Department [address] [place] [address] Progress Note 04/03/25 1352 MR#: [id number] Acct: [id number] Name: ENOC ARMANDO Rep #:[id number] : 1945 79 From: Grace Arnold MD [...] 76.4 H, Lymph % (Auto) 13.5 L, [place] % (Auto) 7.0, Eos % (Auto) 1.9, Baso % (Auto) 0.6, Absolute Neuts (auto) 12.0 H, Absolute Lymphs (auto) 2.12, Nucleated RBC % 0, PT 13.4, INR 1.0,APTT 37.3 H, D-Dimer Quant (PE/DVT) 1.86 H*, Sodium 139, Potassium 4.4,Chloride 104, Carbon Mxdvnfe14.8 L, Anion Gap 14, BUN 42 H, [...] (Auto) 94.8 H, Lymph % (Auto) 3.3L, [place] % (Auto) 1.1, Eos % (Auto) 0.0, [...] possibly multifocal congestion and/or pneumonia. Reading Location: [place] [address] Chest CTA 04/03/25 02:34 IMPRESSION: Mild bilateral pleural effusions. Passive atelectatic airspace disease/airspace consolidations of the lower lobes. Bilateral chronic perihilar interstitial pulmonary thickening with associated mild multifocal ground-glass densities, possibly superimposed pneumonia. Mild diffuse spondylosis. No CT evidence of pulmonary embolus or aortic dissection. Reading [facility] Echocardiogram 04/03/25 05:55 Interpretation Summary Mid [...] 32 mins Charges/Coding Visit Charges Inpatient E&M: 31703 PROLNG IP/OBS E/M EA 15 MIN 04/03/25 [...] Signature (if applicable): Date cc: ~* Signed [facility]06-03-2025 Consult note [facility] Medical Records Department [address] [place] [address] Consultation - Cardiology 04/03/25 1630 MR#: [id number] Acct: [id number] Name: ENOC ARMANDO Rep #:[id number] : 1945 79 From: Breezy Campbell MD [...] left heart catheterization a year ago in [place] we will try to obtain those records [...] I will try to obtain records from [place] to see if this is new but [...] Will try to obtain cardiovascular records from [place] from last year. 2. Continue current medical therapy. 3. Will follow along with you as the patient recovers from his pulmonary insufficiency we may need to alter his cardiovascular medical therapy. 4. The patient does not routinely see a international student counselor by his report. We will behappy to [...] last year he underwentleft heart catheterization in [place] and that revealed 2 blocked arteries that [...] AdvReac Other Verified 04/03/25 00:16 (Glucocorticoids) (steroids) Tzfzxpd-APQ-JgD Reductase AdvReac Other Verified 04/03/25 00:16 Inhibitor (Kpjxiwv-Gxi-Gdx Reductase Inhibitor) Family History Mother COPD (chronic [...] 20% Risk Charges/Coding Visit Charges Inpatient E&M: 67283 Init Hosp L3 Objective Data Vital Signs: [...] 76.4 H, Lymph % (Auto) 13.5 L, [place] % (Auto) 7.0, Eos % (Auto) 1.9, Baso % (Auto) 0.6, Absolute Neuts (auto) 12.0 H, Absolute Lymphs (auto) 2.12, Nucleated RBC % 0, PT 13.4, INR 1.0,APTT 37.3 H, D-Dimer Quant (PE/DVT) 1.86 H*, Sodium 139, Potassium 4.4,Chloride 104, Carbon Aibccah10.8 L, Anion Gap 14, BUN 42 H, [...] (Auto) 94.8 H, Lymph % (Auto) 3.3L, [place] % (Auto) 1.1, Eos % (Auto) 0.0, [...] 76.4 H, Lymph % (Auto) 13.5 L, [place] % (Auto) 7.0, Eos % (Auto) 1.9, Baso % (Auto) 0.6, Absolute Neuts (auto) 12.0 H, Nucleated RBC %0, PT 13.4, INR 1.0,APTT 37.3 H, D-Dimer Quant (PE/DVT) 1.86 H*, Sodium 139, Potassium 4.4, Vaznvdzz240, Carbon Dioxide 20.8 L, Anion Gap 14, [...] 94.8 H, Lymph % (Auto) 3.3 L, [place] %(Auto) 1.1, Eos % (Auto) 0.0, Baso [...] possibly multifocal congestion and/or pneumonia. Reading Location: [place] [address] Chest CTA 04/03/25 02:34 IMPRESSION: Mild bilateral pleural effusions. Passive atelectatic airspace disease/airspace consolidations of the lower lobes. Bilateral chronic perihilar interstitial pulmonary thickening with associated mild multifocal ground-glass densities, possibly superimposed pneumonia. Mild diffuse spondylosis. No CT evidence of pulmonary embolus or aortic dissection. Reading Location: [place] [address] Echocardiogram 04/03/25 05:55 Interpretation Summary Mid to [...] applicable): CC: Dr. Ryley Jeter MD~ Signed [facility]06-03-2025 Consult note Author Landry Fagan [facility] Note Date/Time April 03, 2025 9:04a [facility] Medical Records Department [address] [place] [address] Consultation - Extension Service Specialist 04/03/25 0850 MR#: [id number] Acct: [id number] Name: ARMANDOENOC Ariela Rep #:[id number] : 1945 79 From: Landry Fagan DO [...] without intubation This note was generated with Vou[employer]Diner dictation software. It may contain incorrectwords, spelling, [...] he has never been evaluated by a maintenance person or completed pulmonary function studies. Therefore, it [...] AdvReac Other Verified 04/03/25 00:16 (Glucocorticoids) (steroids) Gszgxsv-NVV-DsE Reductase AdvReac Other Verified 04/03/25 00:16 Inhibitor (Rugwyuu-Npn-Rfc Reductase Inhibitor) Family History Mother COPD (chronic [...] 76.4 H, Lymph % (Auto) 13.5 L, [place] % (Auto) 7.0, Eos % (Auto) 1.9, [...] (Auto) 94.8 H, Lymph % (Auto) 3.3L, [place] % (Auto) 1.1, Eos % (Auto) 0.0, [...] possibly multifocal congestion and/or pneumonia. Reading Location: [place] [address] Chest CTA 04/03/25 02:34 IMPRESSION: Mild bilateral pleural effusions. Passive atelectatic airspace disease/airspace consolidations of the lower lobes. Bilateral chronic perihilar interstitial pulmonary thickening with associated mild multifocal ground-glass densities, possibly superimposed pneumonia. Mild diffuse spondylosis. No CT evidence of pulmonary embolus or aortic dissection. Reading Location: [place] [address] Charges/Coding Visit Charges Inpatient E&M: 58595 Init Hosp L3 04/03/25 0904 <Electronically signed by Landry Fagan DO> Cosigner Signature (if applicable): CC: Dr. Ryley Jeter MD~ Signed [facility] Work Phone: 1(482) 536-479106-03-2025 Consult note [facility] Medical Records Department [address] [place] [address] Consultation - Extension Service Specialist 04/03/25 0850 MR#: [id number] Acct: [id number] Name: ENOC ARMANDO Rep #:[id number] : 1945 79 From: Landry Fagan DO [...] without intubation This note was generated with [employer] dictation software. It may contain incorrectwords, spelling, [...] he has never been evaluated by a maintenance person or completed pulmonary function studies. Therefore, it is unknown if the patient has underlying obstructive lung disease. [facility] On presentation to the emergency department, [...] AdvReac Other Verified 04/03/25 00:16 (Glucocorticoids) (steroids) Pngwydl-NGU-UiY Reductase AdvReac Other Verified 04/03/25 00:16 Inhibitor (Tzopnaz-Qon-Rqq Reductase Inhibitor) Family History Mother COPD (chronic [...] 76.4 H, Lymph % (Auto) 13.5 L, [place] % (Auto) 7.0, Eos % (Auto) 1.9, Baso % (Auto) 0.6, Absolute Neuts (auto) 12.0 H, Absolute Lymphs (auto) 2.12, Nucleated RBC % 0, PT 13.4, INR 1.0,APTT 37.3 H, D-Dimer Quant (PE/DVT) 1.86 H*, Sodium 139, Potassium 4.4,Chloride 104, Carbon Rsxqftm63.8 L, Anion Gap 14, BUN 42 H, [...] (Auto) 94.8 H, Lymph % (Auto) 3.3L, [place] % (Auto) 1.1, Eos % (Auto) 0.0, [...] possibly multifocal congestion and/or pneumonia. [facility] Chest CTA 04/03/25 02:34 IMPRESSION: Mild bilateral pleural effusions. Passive atelectatic airspace disease/airspace consolidations of the lower lobes. Bilateral chronic perihilar interstitial pulmonary thickening with associated mild multifocal ground-glass densities, possibly superimposed pneumonia. Mild diffuse spondylosis. No CT evidence of pulmonary embolus or aortic dissection. [facility] Charges/Coding Visit Charges Inpatient E&M: 79184 Init Hosp L3 04/03/25 0904 Cosigner Signature (if applicable): CC: Dr. Ryley Jeter MD~ Signed [facility]06-03-2025 History and physical note Author Dyana Hwang [facility] Note Date/Time April 03, 2025 4:42a m [facility] Medical Records Department [address] [place] [address] H&P Exam - Hospitalist 04/03/25 0402 MR#: [id number] Acct: [id number] Name: ENOC ARMANDO Rep #:[id number] : 1945 79 From: Dyana Hwang MD [...] pathology, Tobacco use who presents to the [facility] ED on 04/03/2025 with history of [...] AdvReac Other Verified 04/03/25 00:16 (Glucocorticoids) (steroids) Uasgbyv-BHW-OeJ Reductase AdvReac Other Verified 04/03/25 00:16 Inhibitor (Wifznld-Wwu-Cwg Reductase Inhibitor) Family History (Updated 04/03/25 @ [...] 76.4 H, Lymph % (Auto) 13.5 L, Kearney % (Auto) 7.0, Eos % (Auto) 1.9, [...] possibly multifocal congestion and/or pneumonia. Reading Location: [place] [address] Chest CTA 04/03/25 02:34 IMPRESSION: Mild bilateral pleural effusions. Passive atelectatic airspace disease/airspace consolidations of the lower lobes. Bilateral chronic perihilar interstitial pulmonary thickening with associated mild multifocal ground-glass densities, possibly superimposed pneumonia. Mild diffuse spondylosis. No CT evidence of pulmonary embolus or aortic dissection. Reading Location: [place] [address] Assessment & Plan Assessment/Plan (1) Acute hypoxic respiratory failure: PLAN: Plan The patient is an 79 y/o M w/ PMHx: CKD stage III unclear subtype per GFR trending, Chronic macrocytic anemia, HTN, HLD, Diabetes mellitus type II, BPH with obstructive pathology, Tobacco use who presents to the [facility] ED on 04/03/2025 with history of [...] any pulmonary embolus or aortic dissection, initial [id number] with repeat delta troponin 76. Will maintain [...] 16 minutes. Charges/Coding Visit Charges Inpatient E&M: 41363 Init Hosp L3 Procedures Hospitalists Procedures: 15696 Advncd Care Plan 30 Min 04/03/25 0442 <Electronically signed by Dyana Hwang MD> Cosigner Signature (if applicable): CC: Dr. Dyana Hwang MD; Dr. Ryley Jeter MD~ Signed [facility] Work Phone: 1(196) 136-725306-03-2025 Evaluation note* Diagnosis Onset Date Resolution Status [...] :16am HTN (hypertension) chronic April 032024 4:16am [facility] Work Phone: 1(649) 202-295706-03-2025 Evaluation note* Diagnosis Onset Date Resolution Status [...] 3:06am COPD exacerbation chronic April 192024 3:06am [facility] Work Phone: 1(682) 155-625606-03-2025 Evaluation note* Diagnosis Onset Date Resolution Status [...] 3:06am COPD exacerbation chronic April 192024 3:06am [facility] Work Phone: 1(663) 561-198106-03-2025 Evaluation note* Diagnosis Onset Date Resolution Status [...] 05 10:01pm Hypertension chronic May 05 10:01pm [facility] Work Phone: 1([phone]) 383-518906-03-2025 Evaluation note* Diagnosis Onset Date Resolution Status [...] IV inactive May 05, 2025 1 0:01pm [facility] Work Phone: 1(608) 703-240706-03-2025 Discharge summary Author John Brandon [facility] Note Date/Time April 03, 2025 4:11a m [facility] Medical Records Department [address] [place] [address] Emergency Department Summary 04/03/25 MR#: [id number] Acct: [id number] Name: ENOC ARMANDO Rep #:[id number] : 1945 79 From: John Ramirez PCP: Dr. Ryley Jeter MD Status:REG ER Location: ED HPI History of Present Illness Chief Complaint: Shortness of Breath [facility] Medical History Pneumonia COVID [...] AdvReac Other Verified 04/03/25 00:16 (Glucocorticoids) (steroids) Ollffvp-Eii-Jpb Reductase AdvReac Other Verified 04/03/25 00:16 Inhibitor [...] 4 Fraction of Inspired Oxygen (FIO2) [facility] Narrative Medical decision making [...] Consults: internal medicine only sees Dr. Hwang) [facility] Narrative: The patient was initially tachycardic, [...] to ICU This note was generated with VoulezVousDiner dictation software. It may contain incorrectwords, spelling, [...] 76.4 H Lymph % (Auto) 13.5 L [place] % (Auto) 7.0 Eos % (Auto) 1.9 [...] possibly multifocal congestion and/or pneumonia. Reading Location: [place] [address] Discharge Plan Triage Chief Complaint: Shortness of [...] MD [Primary Care Provider] - Print Language: Citizen Of [place] What to do if you have Problems For any increased pain, shortness of breath, bleeding, nausea or vomiting, chestpain, or any unexpected problems, contact your Primary Care Provider. Call [facility] ([phone]) or report to the closest Emergency Room. Call 911 if necessary. 04/03/25410 <Electronically signed by John Brandon DO> Cosigner Signature (if applicable): CC: Dr. Ryley Jeter MD ~ Signed [facility] Work Phone: 1(642) 771-982606-03-2025 History and physical note [facility] Medical Records Department [address] [place] [address] H&P Exam - Hospitalist 04/03/25 0402 MR#: [id number] Acct: [id number] Name: ENOC ARMANDO Rep #:[id number] : 1945 79 From: Dyana Hwang MD PCP: Dr. Ryley Jeter MD Status:ADM IN [facility] - General General Date of Admission: 04/03/25 Date of Service: 04/03/25 Chief Complaint: Dyspnea. HPI Narrative The patient is an 79 y/o M w/ PMHx: CKD stage III unclear subtype per GFR trending, Chronic macrocytic anemia, HTN, HLD, Diabetes mellitus type II, BPH with obstructive pathology, Tobacco use who presents to the [facility] ED on 04/03/2025 with history of [...] AdvReac Other Verified 04/03/25 00:16 (Glucocorticoids) (steroids) Kcevzuj-HCE-FsU Reductase AdvReac Other Verified 04/03/25 00:16 Inhibitor (Vyghmds-Yno-Bty Reductase Inhibitor) Family History (Updated 04/03/25 @ [...] 76.4 H, Lymph % (Auto) 13.5 L, [place] % (Auto) 7.0, Eos % (Auto) 1.9, [...] possibly multifocal congestion and/or pneumonia. Reading Location: [place] [address] Chest CTA 04/03/25 02:34 IMPRESSION: Mild bilateral pleural effusions. Passive atelectatic airspace disease/airspace consolidations of the lower lobes. Bilateral chronic perihilar interstitial pulmonary thickening with associated mild multifocal ground-glass densities, possibly superimposed pneumonia. Mild diffuse spondylosis. No CT evidence of pulmonary embolus or aortic dissection. Reading Location: [place] [address] Assessment & Plan Assessment/Plan (1) Acute hypoxic respiratory failure: PLAN: Plan The patient is an 79 y/o M w/ PMHx: CKD stage III unclear subtype per GFR trending, Chronic macrocytic anemia, HTN, HLD, Diabetes mellitus type II, BPH with obstructive pathology, Tobacco use who presents to the [facility] ED on 04/03/2025 with history of [...] any pulmonary embolus or aortic dissection, initial iqlbhafx31ybxv repeat delta troponin 76. Will maintain on [...] 16 minutes. Charges/Coding Visit Charges Inpatient E&M: 09928 Init Hosp L3 Procedures Hospitalists Procedures: 89471 Advncd Care Plan 30 Min 04/03/25 0442 Cosigner Signature (if applicable): CC: Dr. Dyana Hwang MD; Dr. Ryley Jeter MD~ Signed [facility]06-03-2025 Discharge summary [facility] Medical Records Department [address] [place] [address] Emergency Department Summary 04/03/25 MR#: [id number] Acct: [id number] Name: ENOC ARMANDO Rep #:[id number] : 1945 79 From: John Ramirez PCP: Dr. Ryley Jeter MD Status:REG ER Location: ED HPI History of Present Illness Chief Complaint: [facility] Medical History Pneumonia [...] AdvReac Other Verified 04/03/25 00:16 (Glucocorticoids) (steroids) Omcodho-Nlr-Wdn Reductase AdvReac Other Verified 04/03/25 00:16 Inhibitor [...] Consults: internal medicine only sees Dr. Hwang) [facility] Narrative: The patient was initially tachycardic, [...] to ICU This note was generated with VoulezVousDiner dictation software. It may contain incorrectwords, spelling, [...] 76.4 H Lymph % (Auto) 13.5 L [place] % (Auto) 7.0 Eos % (Auto) 1.9 [...] possibly multifocal congestion and/or pneumonia. Reading Location: [place] [address] Discharge Plan Triage Chief Complaint: Shortness of [...] MD [Primary Care Provider] - Print Language: Citizen Of [place] What to do if you have Problems For any increased pain, shortness of breath, bleeding, nausea or vomiting, chestpain, or any unexpected problems, contact your Primary Care Provider. Call [facility] ([phone]) or report tothe closest Emergency Room. Call 911 if necessary. 04/03/25 0418 Cosigner Signature (if applicable): CC: Dr. Ryley Jeter MD ~ Signed [facility]06-03-2025 Radiology Diagnostic study note [facility] Imaging Services [address] [place] [address] CTA Chest W/WO Contrast MR#: [id number] Acct: [id number] Name: ENOC ARMANDO Rep #: [id number] : 1945 M 79 From: Darcy Reese MD PCP: Dr. Ryley Jeter MD Status: REG ER Study:CTA Chest W/WO Contrast Date of Exam: 04/03/25 Exam# [id number] Ordering Dr: Mine Brandon DO PROCEDURE: CTA [...] pulmonary embolus or aortic dissection. Reading [facility] CC: Dr. Ryley Jeter MD; Dr. John Brandon DO ~ Cooker Meal: Signed [facility]06-03-2025 Radiology Diagnostic study note [facility] Imaging Services [address] [place], [place] [address] Chest 1 View (Portable) MR#: [id number] Acct: [id number] Name: ENOC ARMANDO Rep #: [id number] : 1945 M 79 From: Darcy Reese MD PCP: Dr. Ryley Jeter MD Status: REG ER Study:Chest 1 View (Portable) Date of Exam: 04/03/25 Exam# [id number] Ordering Dr: Mine Brandon DO PROCEDURE: CHEST [...] Jeter MD; Dr. John Brandon DO ~ Cooker Meal: Signed [facility]05-27-2025 Telephone encounter Note* Telephone Encounter - Ej Guidry MA - 03/27/2025 1:23 PM EDT Called pt's Alice with lab results per Dr. Small. Alice verbalized understanding and had no further questions. [id number] Miscellaneous Notes* Telephone Encounter - Ej Guidry [...] To: Woo Small MD documented in this [id number] Telephone encounter Note* Telephone Encounter - Ej Guidry MA - 03/27/2025 10:50 AM EDT Left voicemail asking for pt to call back to go over lab results per Dr. Small. Given phone number tocall back. [id number] Telephone encounter Note* Telephone Encounter - Ej [...] 7:18 AM EDT To: Woo Small MD [id number] NotePatient ID: Enoc Armando is a 79 [...] being taken. Patient does not see a psychiatric security nurse. Eye exam is current. Currently taking: No [...] medications, past family his (more content not included)...[facility]05-12-2025 History of Present illness Narrative* Paty Ortega, [facility] - 03/12/2025 1:50 PM EDT [...] being taken. Patient does not see a psychiatric security nurse. Eye exam is current. Currently taking: No [...] if BG <150 at HS. 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 Had bilat cataract extraction Dr. Lopez. Sees Dr. Browne in [place] every year routinely.Has blurred vision with low [...] Call if BG consistently <70 or >250. [phone] Continue to check blood sugar 3 times [...] CNP 03/12/25 1:21 PM documented in this [id number] NoteGeneral Cardiology New Patient Clinic Consult [facility], Heart & Vascular 03/09/2025 Woo Small MD [facility] [address], 3rd Floor Medical Office [facility] [address] Patient: Enoc Armando Date of [...] to be ischemic Coronary 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snoqualmie coronary artery of snoqualmie heart without angina pectoris (Primary) Patient underwent [...] file. Woo Small MD, FACC Non-Invasive Cardiology [facility] P:[phone] F:[phone] History of Present Illness: Enoc Armando is a 79 y.o. man with a past medical history of insulin-dependent diabetes for 30 years, history of tobacco use, recent COVID infection with systolic dysfunction ejection fraction ranging from 35 to 45% who presented initially to [facility] care. He underwent stress testing which showed inferior wall abnormality as well as ejection fraction of 50%. I initially met with him back in January 2024 and he was doing quite well, however he presented in October with symptoms of fatigue, malaise, flash pulmonary edema and hypertensive emergency with reduced ejection fraction at [facility]. 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 Tobacco abuse Past Surgical History: Procedure Laterality Date CATARACT EXT/ECCE Bilateral 12/2012,07/2014 NM CATH PLMT L HRT & ARTS W/NJX & ANGIO IMG S&I N/A 10/27/2024 Procedure: Coronary Angiogram; Surgeon: Elías Rodriguez MD; Location: [facility]; Service: Cardiovascular NM CATH PLMT L HRT & ARTS W/NJX & ANGIO IMG S&I N/A 10/27/2024 Procedure: Left Heart Cath; Surgeon: Elías Rodriguez MD; Location: [facility]; Service: Cardiovascular SKIN CANCER EXCISION 09/2021 L ear Family History Problem Relation Age of Onset Coronary artery disease Father Alzheimer's disease Father Social History Tobacco Use Smoking Statu (more content not included)...[facility] [id number] History of Present illness Narrative* Woo Small MD - 03/09/2025 9:39 AM EDT General Cardiology New Patient Clinic Consult [facility], Heart & Vascular 03/09/2025 Woo Small MD [address] [place] [address] 3rd Floor Medical Office [facility] [address] Patient: Enoc Armando Date of [...] to be ischemic Coronary 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snoqualmie coronary artery of snoqualmie heart without angina pectoris (Primary) Patient underwent [...] No follow-ups on file. Woo Small MD, [facility] Non-Invasive Cardiology [facility] P:[phone] F:[phone] History of Present Illness: Enoc Armando is a 79 y.o. man with a past medical history of insulin-dependent diabetes for 30 years, history of tobacco use, recent COVID infection with systolic dysfunction ejection fraction ranging from 35 to 45% who presented initially to [facility] care. He underwent stress testing which showedinferior wall abnormality as well as ejection fraction of 50%. I initially met with him back in January 2024 and he was doing quite well, however he presented in October with symptoms of fatigue, malaise, flash pulmonary edema and hypertensive emergency with reduced ejection fraction at [facility]. Left heart catheterization was ultimately recommended [...] Procedure Laterality Date CATARACT EXT/ECCE Bilateral 12/2012,07/2014 NM CATH PLMT L HRT & ARTS W/NJX & ANGIO IMG S&I N/A 10/27/2024 Procedure: Coronary Angiogram; Surgeon: Elías Rodriguez MD; Location: [facility];Service: Cardiovascular NM CATH PLMT L HRT & ARTS W/NJX & ANGIO IMG S&I N/A 10/27/2024 Procedure: Left Heart Cath; Surgeon: Elías Rodriguez MD; Location: [facility]; Service: Cardiovascular SKIN CANCER EXCISION 09/2021 L ear Family History Problem Relation Age of Onset Coronary artery disease Father Alzheimer's disease Father Social History Tobacco Use Smoking Status Every Day Current packs/day: 0.50 Average packs/day: 0.5 packs/day for 61.4 years (30.7 ttl pk-yrs) Types: Cigarettes Start date: 1965 Smokeless Tobacco Never Allergies: Zzbzhlm-ynt-njo reductase inhibitors All of the information has [...] 3 tablet, Rfl: 3 OXYGEN-AIR DELIVERY SYSTEMS [facility], Inhale 2 L/min See Admin Instructions ., [...] Cardiovascular Studies: [facility] 2024 Echo 2023 Carotids 2024 Summary 1. [...] arterial duplex was normal Echocardiogram reviewed from [facility], 10/11/2023 moderately decreased ejection fraction estimated [...] BILITOT 0.3 10/27/2024 The ASCVD Risk score ([place] DK, et al., 2019) failed to calculate for the following reasons: The 2019 ASCVD risk score is only valid for ages 40 to 79 Risk score cannot be calculated because patient has a medical history suggesting prior/existing ASCVD documented in this [id number] Instructions* Patient Instructions* Woo Small MD - 03/09/2025 7:56 AM EDT How to Contact your Care Team: Provider: Dr. Woo Small MD Clinic Nurse: FIDEL Moran Clinic MA: SUSAN Pagan REFILLS: When in need for refills please call your care team or the office at [phone]. Please include medication name, pharmacy name, and [...] work in 2 weeks documented in this [id number] NoteS DISCHARGE SUMMARY -- [facility] Enoc Armando : 1945 Admitted: 02/28/2025 Discharge Date: 03/05/25 PCP Handoff Recommended Outpatient Testing None Results Pending At Discharge None Clinical Summary Enoc Armando is a 79 y.o. male patient of Ryley Jeter MD with history of type I IDDM, hypertension, CAD, diastolic HF, dyslipidemia, COPD, CKD presented to [facility] on 02/28/2025 with shortness of breath. [...] daily . (more content not included)...[facility]05-04-2025 NoteHMS PROGRESS NOTE Patient Name: Enoc Armando : 1945 Assessment and Plan Enoc Armando is a 79 y.o. male patient of Ryley Jeter MD with history of type I IDDM, hypertension, CAD, diastolic HF, dyslipidemia, COPD, CKD presented to [facility] on 02/28/2025 with shortness of breath. [...] affect AUTHENTICATED BY BERNADETTE PARNELL ON 03/04/2025 11:10:[address] [place] [address] 03-03-2025 NoteHMS PROGRESS NOTE Patient Name: Enoc Armando : 1945 Assessment and Plan Enoc Armando is a 79 y.o. male patient of Ryley Jeter MD with history of type I IDDM, hypertension, CAD, diastolic HF, dyslipidemia, COPD, CKD presented to [facility] on 02/28/2025 with shortness of breath. [...] affect AUTHENTICATED BY BERNADETTE PARNELL, ON 03/03/2025 12:05:[address] [place] [address] 03-03-2025 NoteGeneral Cardiology Inpatient Follow-up Heart & Vascular [facility] 03/03/2025 Aparna Browne, [facility] Patient: Enoc Armando Date of : 1945 (79 y.o.) PCP: Ryley Jeter MD Primary international student counselor: Assessment/Plan: Enoc Armando is a 79 y.o. [...] Final Result by Elías Rodriguez MD (10/27/2024 0942) Review of Systems: The following system(s) were [...] dictation software was used Aparna Browne MSN, FOOD PROCESSING CHEMIST, ANP-C [1] Current Facility-Administered Medications Medication Dose [...] Intravenous Con (more content not included)...[facility]05-02-2025 NoteHMS PROGRESS NOTE Patient Name: Enoc Armando : 1945 Assessment and Plan Enoc Armando is a 79 y.o. male patient of Ryley Jeter MD with history of type I IDDM, hypertension, CAD, diastolic HF, dyslipidemia, COPD, CKD presented to [facility] on 02/28/2025 with shortness of breath. [...] affect AUTHENTICATED BY PEMA DUNBAR, ON 03/02/2025 13:48:[address] [place] [address] 03-01-2025 NoteHMS PROGRESS NOTE Patient Name: Enoc Armando : 1945 Assessment and Plan Enoc Armando is a 79 y.o. male patient of Ryley Jeter MD with history of type I IDDM, hypertension, CAD, diastolic HF, dyslipidemia, COPD, CKD presented to [facility] on 02/28/2025 with shortness of breath. [...] affect AUTHENTICATED BY PEMA DUNBAR, ON 03/01/2025 12:52:[address] [place] [address] 02-28-2025 NoteHMS PROGRESS NOTE Patient Name: Enoc Armando : 1945 Assessment and Plan Enoc Armando is a 79 y.o. male patient of Ryley Jeter MD with history of type I IDDM, hypertension, CAD, diastolic HF, dyslipidemia, COPD, CKD presented to [facility] on 02/28/2025 with shortness of breath. [...] BY PEMA DUNBAR, ON 02/28/2025 13:04:55[facility] 02-28-2025 NoteHMS HISTORY AND PHYSICAL -- [facility] Patient Name: Enoc Armando : 1945 MR #: [id number] Admit Date: 02/28/2025 Physicians: Ryley Jeter MD (Family); No ref. provider found (Referring) Enoc Armando is a 79 y.o. male patient of Ryley Jeter MD with history of type I IDDM, hypertension, CAD, diastolic HF, dyslipidemia, COPD, CKD presented to [facility] on 02/28/2025 with shortness of breath. [...] dyslipidemia, COPD, CKD presented to [facility] on 02/28/2025 with shortness of breath. [...] Procedure Laterality Date CATARACT EXT/ECCE Bilateral 12/2012,07/2014 NM CATH PLMT L HRT & ARTS W/NJX & ANGIO IMG S&I N/A 10/27/2024 Procedure: Coronary Angiogram; Surgeon: Elías Rodriguez MD; Location: [facility]BRID [facility] WORKER; Service: Cardiovascular NM CATH PLMT L HRT & ARTS W/NJX & ANGIO IMG S&I N/A 10/27/2024 Procedure: Left Heart Cath; Surgeon: Elías Rodriguez MD; Location: [facility] WORK[facility]; Service: Cardiovascular SKIN CANCER EXCISION 09/2021 L ear Family History Family History Problem Relation Age of Onset Coronary artery disease Father Alzheimer's disease Father Social History Tobacco Use History[1] Social History Substance and Sexual Activity Alcohol Use No Alcohol/week: 0.0 standard drinks of alcohol Social History Substance and Sexual Activity Drug Use No Allergy Information I have reviewed the patient's allergies. Irufbum-yyo-ydk reductase inhibitors Home Medications Home medications were reviewed. Review Of Systems All relevant systems have been reviewed and are negative except as noted in HPI or below Physical Examination BP (!) 194/62 Pulse 97 Temp 97.8 degrees F (36.6 degrees C) (Oral) Resp (!) 22 Ht 5' 7 Wt 65.8 (more content not included)...[facility]04-28-2025 History of Present illness Narrative* Ayanna [...] DO 02/26/25 1:17 PM [facility] Work Phone: 1(144) 975-689104-16-2025 History of Present illness Narrative* Ej Guidry MA - 02/14/2025 11:02 AM EDT Refaxed letter written on 01/18/[address] Small to [facility]. documented in this [id number] Instructions* Patient Instructions* Luisa Easley RN - 11/14/2024 11:36 AM EST How to Contact your Care Team: Provider: Dr. Woo Small MD Clinic Nurse: FIDEL Moran Clinic MA: SUSAN Pagan REFILLS: When in need for refills please call your care team or the office at [phone]. Please include medication name, pharmacy name, and specify 30-day or 90-day supply. Please check with your pharmacy within 24 hours of request for your refill. You must follow up as directed to continue current refills. Thank you! documented in this [id number] History of Present illness Narrative* Woo Small MD - 11/14/2024 10:40 AM EST General Cardiology New Patient Clinic Consult [facility], Heart & Vascular 11/14/2024 Woo Small MD [address] [place] [address] Patient: Enoc Armando Date of : 1945 (78 y.o.) PCP: Ryley Jeter MD Date of Service: 11/14/2024 Chief Complaint: Follow-up Assessment and Plan: 1. Coronary 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s[place]qualmie coronary artery of s[place]mie heart without angina pectoris(Primary) Patient underwent left [...] Woo Small MD, FACC Non-Invasive Cardiology [facility] P:[phone] F:[phone] History of Present Illness: Enoc Armando is a 78 y.o. man with a past medical history of insulin-dependent diabetes for 30 years, history of tobacco use, recent COVID infection with systolic dysfunction ejection fraction ranging from 35 to 45% who presented initially to [facility]. He underwent stress testing which showedinferior wall abnormality as well as ejection fraction of 50%. I initially met with him back in January 2024 and he was doing quite well, however he presented in October with symptoms of fatigue, malaise, flash pulmonary edema and hypertensive emergency with reduced ejection fraction at [facility]. 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 Tobacco abuse Past Surgical History: Procedure Laterality Date CATARACT EXT/ECCE Bilateral 12/2012,07/2014 NM CATH PLMT L HRT & ARTS W/NJX & ANGIO IMG S&I N/A 10/27/2024 Procedure: Coronary Angiogram; Surgeon: Elías Rodriguez MD; Location: HYBRID KEY WORKER;Service: Cardiovascular NM CATH PLMT L HRT & ARTS W/NJX & ANGIO IMG S&I N/A 10/27/2024 Procedure: Left Heart Cath; Surgeon: Elías Rodriguez MD; Location: HYBRID KEY WORKER; Service: Cardiovascular SKIN CANCER EXCISION 09/2021 L ear Family History Problem Relation Age of Onset Coronary artery disease Father Alzheimer's disease Father Social History Tobacco Use Smoking Status Every Day Current packs/day: 0.50 Average packs/day: 0.5 packs/day for 61.0 years (30.5 ttl pk-yrs) Types: Cigarettes Start date: 1965 Smokeless Tobacco Never Allergies: Ndbbhbl-gwu-snn reductase inhibitors All of the information has [...] 90 tablet, Rfl: 3 OXYGEN-AIR DELIVERY SYSTEMS [facility], Inhale 2 L/min See Admin Instructions ., [...] Cardiovascular Studies: [facility] 2024 Echo 2023 Carotids 2024 Summary 1. [...] arterial duplex was normal Echocardiogram reviewed from [facility], 10/11/2023 moderately decreased ejection fraction estimated [...] history suggesting prior/existing ASCVD documented in this [id number] NoteGeneral Cardiology New Patient Clinic Consult [facility], Heart & Vascular 11/14/2024 Woo Small MD [address] [place] [phone] Patient: Enoc Armando Date of : 1945 (78 y.o.) PCP: Ryley Jeter MD Date of Service: 11/14/2024 Chief Complaint: Follow-up Assessment and Plan: 1. Coronary 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[place] coronary artery of [place] heart without angina pectoris (Primary) Patient underwent [...] 6 months (around 05/14/2025). Woo Small MD, [facility] Non-Invasive Cardiology [facility] P:[phone] F:[phone] History of Present Illness: Enoc Armando is a 78 y.o. man with a past medical history of insulin-dependent diabetes for 30 years, history of tobacco use, recent COVID infection with systolic dysfunction ejection fraction ranging from 35 to 45% who presented initially to [facility]. He underwent stress testing which showed inferior wall abnormality as well as ejection fraction of 50%. I initially met with him back in January 2024 and he was doing quite well, however he presented in October with symptoms of fatigue, malaise, flash pulmonary edema and hypertensive emergency with reduced ejection fraction at [facility]. 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 Tobacco abuse Past Surgical History: Procedure Laterality Date CATARACT EXT/ECCE Bilateral 12/2012,07/2014 NM CATH PLMT L HRT & ARTS W/NJX & ANGIO IMG S&I N/A 10/27/2024 Procedure: Coronary Angiogram; Surgeon: Elías Rodriguez MD; Location: HYBRID KEY WORKER; Service: Cardiovascular NM CATH PLMT L HRT & ARTS W/NJX & ANGIO IMG S&I N/A 10/27/2024 Procedure: Left Heart Cath; Surgeon: Elías Rodriguez MD; Location: HYBRID KEY WORKER; Service: Cardiovascular SKIN CANCER EXCISION 09/2021 L ear Family History Problem Relation Age of Onset Coronary artery disease Father Alzheimer's disease Father Social History Tobacco Use Smoking Status Every Day Current packs/day: 0.50 Average packs/day: 0.5 packs/day for 61.0 years (30.5 ttl pk-yrs) Types: Cigarettes Start date: 1965 Smokeless Tobacco Never Allergies: Pzsjaho-olm-ytw reductase inhibitors All of the information has been reviewed at today's visit and modified if necessary. Home Medications: Current Outpatient Medications: acetaminophen (Tylenol Arthritis Pain) 650 MG CR tablet, Take 1 (one) tablet (650 mg total) by mouth every 8 (eight) hours as needed for pain ., (more content not included)...[facility] [id number] NotePatient ID: Enoc Armando is a 78 [...] required IV insulin gtt. . Hospitalized in [facility]. Reports URI symptoms with ear lockage. [...] being taken. Patient does not see a psychiatric security nurse. Eye exam is current. Currently taking: No [...] mouth daily . - OXYGEN-AIR DELIVERY SYSTEMS [facility], Inhale 2 L/min See Admin Instructions . [...] kg (148 lb) 01 (more content not included)...[facility]01-13-2025 History of Present illness Narrative* Paty [...] required IV insulin gtt. . Hospitalized in [facility]. Reports URI symptoms with ear lockage. [...] being taken. Patient does not see a psychiatric security nurse. Eye exam is current. Currently taking: No [...] if BG <150 at HS. 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 Had bilat cataract extraction Dr. Lopez. Sees Dr. Browne in [place] every year routinely.Has blurred vision with low [...] Call if BG consistently <70 or >250. [phone] Continue to check blood sugar 3 times [...] CNP 11/13/24 1:21 PM documented in this [id number] Evaluation + Plan note* Assessment & Plan [...] be performed in conjunction with coronary revascularization. [id number] Miscellaneous Notes* Assessment & Plan Note - [...] conjunction with coronary revascularization. 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[facility] [id number] History of Present illness Narrative* Kristy Parker MD - 11/09/2024 10:36 AM EST OFFICE CONSULTATION NOTE [facility] [address] (11) [facility] [address] [facility] [phone] Physicians: Ryley Jeter MD (Family); [...] Carotid artery stenosis CHF (congestive heart failure) ([facility]) CKD (chronic kidney disease) stage 4, GFR 15-29 ml/min ([facility]) Diabetes mellitus type 1 ([facility]) Emphysema lung (HCC) Hypercholesterolemia Hypertension Kidney stone 2006 Lithotripsy Normocytic anemia PAD (peripheral artery disease) ([facility]) Pneumonia Polyneuropathy Spinal stenosis, lumbar 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 Tobacco abuse Past Surgical History: Procedure Laterality Date CATARACT EXT/ECCE Bilateral 12/2012,07/2014 NM CATH PLMT L HRT & ARTS W/NJX & ANGIO IMG S&I N/A 10/27/2024 Procedure: Coronary Angiogram; Surgeon: Elías Rodriguez MD; Location: HYBRID KEY WORKER;Service: Cardiovascular NM CATH PLMT L HRT & ARTS W/NJX & ANGIO IMG S&I N/A 10/27/2024 Procedure: Left Heart Cath; Surgeon: Elías Rodriguez MD; Location: HYBRID KEY WORKER; Service: Cardiovascular SKIN CANCER EXCISION 09/2021 L [...] Reported on 11/09/2024 .) Allergies Allergen Reactions Cmqpqgj-Ivb-Gfj Reductase Inhibitors Muscle cramps ROS Negative aside [...] 11/27/2023 Kristy Parker MD documented in this [id number] Instructions* Patient Instructions* Yesenia Mcdaniel MA - 11/09/2024 10:32 AM EST How to contact your Care Team: Provider: MD Georgia Ludwig, TRISTAN Almonte, DOMINICK Clark Nurse: Jeannie Rubio RN To reschedule office appointments call Scheduling [phone] In case of an emergency please call 911. When in need of refills please call the phone number listed above. Please include medication name, pharmacy name and specify 30 or 90 day supply Please check with your pharmacy within 24 hours of your request for refill. You must follow up as directed to continue current refills. Thank you! documented in this [id number] Amanda Armando [id number] @[email or web address]@ Brock Groves MD 11/07/24 Room/bed info [...] right heart failure which required admission to [facility] for hypertensive emergency and acute flash [...] artery stenosis - CHF (congestive heart failure) ([facility]) - CKD (chronic kidney disease) stage 4, GFR 15-29 ml/min ([facility]) - Diabetes mellitus type 1 ([facility]) - Emphysema lung ([facility]) - Hypercholesterolemia - Hypertension - Kidney stone 2006 Lithotripsy - Normocytic anemia - PAD (peripheral artery disease) ([facility]) - Pneumonia - Polyneuropathy - Spinal stenosis, lumbar - 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 - Tobacco abuse Past Surgical History: Procedure Laterality Date - CATARACT EXT/ECCE Bilateral 12/2012,07/2014 - NM CATH PLMT L HRT & ARTS W/NJX & ANGIO IMG S&I N/A 10/27/2024 Procedure: Coronary Angiogram; Surgeon: Elías Rodriguez MD; Location: HYBRID KEY WORKER; Service: Cardiovascular - NM CATH PLMT L HRT & ARTS W/NJX & ANGIO IMG S&I N/A 10/27/2024 Procedure: Left Heart Cath; Surgeon: Elías Rodriguez MD; Location: HYBRID KEY WORKER; Service: Cardiovascular - SKIN CANCER EXCISION 09/2021 [...] insulin g (more content not included)...[facility] [id number] History of Present illness Narrative* Brock Groves MD - 11/07/2024 10:36 AM EST Enoc Armando [id number] @[email or web address]@ Brock Groves MD 11/07/24 Room/bed info not [...] right heart failure which required admission to [facility] for hypertensive emergency and acute flash [...] Carotid artery stenosis CHF (congestive heart failure) ([facility]) CKD (chronic kidney disease) stage 4, GFR 15-29 ml/min ([facility]) Diabetes mellitus type 1 (HCC) Emphysema lung (HCC) Hypercholesterolemia Hypertension Kidney stone 2006 Lithotripsy Normocytic anemia PAD (peripheral artery disease) ([facility]) Pneumonia Polyneuropathy Spinal stenosis, lumbar 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 Allergies Allergen Reactions Ciffxbg-Pay-Hlb Reductase Inhibitors Muscle cramps Family History Problem [...] Resource Strain: Low Risk (10/11/2023) Received from [facility], [facility] Overall Financial Resource Strain (CARDIA) Difficulty [...] Addressed This Visit None documented in this [id number] Progress note* Quick Note - Karthik Sandoval RN - 10/28/2024 2:53 PM EST Patient blood sugar at 1:27pm measured 288. Blood sugar at this time measured 321. [facility] ordered to give 8 units of lispro at this time and to instruct patient to recheck blood sugar in a couple hours at home. Patient IV removed and discharge education provided at this time. Patient understands and verbalizes he will check blood sugar when home and to follow medication regimen after discharge [id number] Miscellaneous Notes* Quick Note - Karthik Sandoval RN - 10/28/2024 2:53 PM EST Patient blood sugar at 1:27pm measured 288. Blood sugar at this time measured 321. [facility] ordered to give 8 [...] but appreciative with provided care. Bed alarm welder production line combination light in reach. * Plan of Care [...] potasium and elevated glucose. documented in this [id number] NoteHMS DISCHARGE SUMMARY -- [facility] Enoc Armando Admitted: 10/27/2024 Discharge Date: 10/28/24 PCP Handoff Recommended Outpatient Testing none Results Pending At Discharge none Clinical Summary Enoc Armando is a 78 y.o. male patient of Ryley Jeter MD with history of coronary artery disease, type 1 diabetes, diastolic CHF, hypertension dyslipidemia COPD and lumbar spinal stenosis with chronic low back pain presented to [facility] on 10/27/2024 for an elective left [...] . Quantity: 90 tablet OXYGEN-AIR DELIVERY SYSTEMS [facility] Inhale 2 L/min See Admin Instructions . [...] . Physician(s) Follow Up: Brock Groves MD [address] [place] [id number] Follow up on 11/07/2024 Consultation for surgivcal [...] PM AUTHENTICATED BY NIDIA GARAY, ON 10/28/2024 14:19:[address] [place] [address] 10-28-2024 Hospital course Narrative* Nidia Garay MD - 10/28/2024 2:16 PM EST [facility] [place]GE SUMMARY -- [facility] Enco Armando Admitted: 10/27/2024 Discharge Date: 10/28/24 PCP Handoff Recommended Outpatient Testing none Results Pending At Discharge none Clinical Summary Enoc Armando is a 78 y.o. male patient of Ryley Jeter MD with history of coronary artery disease, type 1 diabetes, diastolic CHF, hypertension dyslipidemia COPD and lumbar spinal stenosis withchronic low back pain presented to [facility] on 10/27/2024 for an elective left [...] . Physician(s) Follow Up: Brock Groves MD [address] [place] [id number] Follow up on 11/07/2024 Consultation for surgivcal [...] on 10/28/24, 2:16 PM documented in this [id number] NoteDaily Progress Note Assessment/Plan: Principal Problem: Hyperglycemia [...] Garay.. AUTHENTICATED BY ZOILA POLLARD, ON 10/28/2024 14:16:[address] [place] [address] 10-28-2024 History of Present illness Narrative* oZila Pollard PA-C - 10/28/2024 2:06 PM EST [...] Garay MD - 10/28/2024 11:36 AM EST [facility] [place]GRESS NOTE Assessment and Plan Enoc Armando is a 78 y.o. male patient of Ryley Jeter MD with history of coronary artery disease, type 1 diabetes, diastolic CHF, hypertension dyslipidemia COPD and lumbar spinal stenosis withchronic low back pain presented to [facility] on 10/27/2024 for an elective left [...] normal mood and affect documented in this [id number] NoteHMS PROGRESS NOTE Assessment and Plan Enoc Armando is a 78 y.o. male patient of Ryley Jeter MD with history of coronary artery disease, type 1 diabetes, diastolic CHF, hypertension dyslipidemia COPD and lumbar spinal stenosis with chronic low back pain presented to [facility] on 10/27/2024 for an elective left [...] affect AUTHENTICATED BY NIDIA GARAY ON 10/28/2024 11:43:[address] [place] [address] 10-28-2024 Plan of care note* Plan of Care - Karthik Sandoval RN - 10/28/2024 9:11 AM EST Problem: Actual or potential alteration in health Goal: Absence of healthcare acquired conditions Outcome: Partially Met Goal: Knowledge of Interdisciplinary Plan of Care Outcome: Partially Met Goal: Knowledge of Enviroment Outcome: Partially Met Problem: Pressure Injury, Risk of Goal: Absence of pressure injury Outcome: Partially Met [id number] Progress note* Quick Note - Julia Chan RN - 10/28/2024 8:05 AM EST Patient stands at edge of bed to void and request to go to restroom. Patient does not want bedrest orders that are in place at this time. Patient is anxious for dc to home but appreciative with provided care. Bed alarm welder production line combination light in reach. [id number] Plan of care note* Plan of Care [...] continue to monitor and report any concerns. [address]RvutVqilvl44-52-2536 Progress note* Quick Note - Julia Chan [...] drip infusing and started at 6.6 units/hr. [address]2024 Progress note* Quick Note - Julia [...] excluding ice chips and sips with meds [id number] Progress note* Quick Note - Julia Chan RN - 10/27/2024 10:18 PM EST This RN received report from observation unit nurse via phone. [id number] Plan of care note* Plan of Care - Carlita Roth RN - 10/27/2024 9:42 PM EST Problem: Actual or potential alteration in health Goal: Absence of healthcare acquired conditions Outcome: Partially Met Goal: Knowledge of Interdisciplinary Plan of Care Outcome: Partially Met Goal: Knowledge of Enviroment Outcome: Partially Met [id number] History and physical note* Cintia Benitez MD - 10/27/2024 8:26 PM EST [facility] [place]ORY AND PHYSICAL -- [facility] Patient Name: Enoc Armando : 1945 MR #: [id number] Admit Date: 10/27/2024 Physicians: Ryley Jeter MD (Family); No ref. provider found (Referring) Enoc Armando is a 78 y.o. male patient of Ryley Jeter MD with history of coronary artery disease, type 1 diabetes, diastolic CHF, hypertension dyslipidemia COPD and lumbar spinal stenosis withchronic low back pain presented to [facility] on 10/27/2024 for an elective left [...] low back pain presented to [facility] on 10/27/2024 for an elective left [...] Information I have reviewed the patient's allergies. Wieidkb-cuy-fvs reductase inhibitors Home Medications Home medications were [...] coloration Psych: normal mood and affect [id number] NoteHMS HISTORY AND PHYSICAL -- [facility] Patient Name: Enoc Armando : 1945 MR #: [id number] Admit Date: 10/27/2024 Physicians: Ryley Jeter MD (Family); No ref. provider found (Referring) Enoc Armando is a 78 y.o. male patient of Ryley Jeter MD with history of coronary artery disease, type 1 diabetes, diastolic CHF, hypertension dyslipidemia COPD and lumbar spinal stenosis with chronic low back pain presented to [facility] on 10/27/2024 for an elective left [...] low back pain presented to [facility] on 10/27/2024 for an elective left [...] Information I have reviewed the patient's allergies. Iytbohp-yyp-ryc reductase inhibitors Home Medications Home medications were [...] coloration Psych: (more content not included)...[facility]12-27-2024 History and physical note* Cintia Benitez MD - 10/27/2024 8:26 PM EST [facility] [place] AND PHYSICAL -- [facility] Patient Name: Enoc Armando : 1945 MR #: [id number] Admit Date: 10/27/2024 Physicians: Ryley Jeter MD (Family); No ref. provider found (Referring) Enoc Armando is a 78 y.o. male patient of Ryley Jeter MD with history of coronary artery disease, type 1 diabetes, diastolic CHF, hypertension dyslipidemia COPD and lumbar spinal stenosis withchronic low back pain presented to [facility] on 10/27/2024 for an elective left [...] low back pain presented to [facility] on 10/27/2024 for an elective left [...] Information I have reviewed the patient's allergies. Ykixzux-iai-zrv reductase inhibitors Home Medications Home medications were [...] Enoc Armando Admit Date: 12261205 MR #: [id number] : 1945 The H&P has been reviewed [...] need for emergency surgery, need for pacemaker, MA, stroke, or cardiac arrest/. Patient voiced understanding and agreed to proceed. Sedation Plan: Moderate ASA Classification: ASA 3: A patient with severe systemic disease. Mallampati Score: Class III: Only the soft palate is visible Elías Rodriguez MD 10/27/2024 8:17 AM Source Note - Woo Small MD - 10/18/2024 1:20 PM EST General Cardiology New Patient Clinic Consult [facility] Heart [facility] Vascular 10/18/2024 Woo Small MD [address] [place] [address] 3rd Floor Medical Office [facility] [phone] Patient: Enoc Armando Date of [...] No follow-ups on file. Woo Small MD, [facility] Non-Invasive Cardiology [facility] P:[phone] F:[phone] History of Present Illness: Enoc Armando is a 78 y.o. man with a past medical history of insulin-dependent diabetes for 30 years, history of tobacco use, recent COVID infection with systolic dysfunction ejection fraction ranging from 35 to 45% who presented initially to [facility]. He underwent stress testing which showedinferior wall abnormality as well as ejection fraction of 50%. I initially met with him back in January and he was doing quite well, however today he presents with progressive symptoms of fatigue, malaise, and a recent heart failure exacerbation at [facility] for hypertensive emergency and acute flash [...] Cigarettes Smokeless Tobacco Never Allergies: Prednisone and Jnxuxyi-vgl-joq reductase inhibitors All of the information has [...] 50%, rest LVEF 51%. Echocardiogram reviewed from [facility], 10/11/2023 moderately decreased ejection fraction estimated [...] history suggesting prior/existing ASCVD documented in this [id number] Progress note* Quick Note - Zoila Pollard [...] stage IV kidney disease, BUN/creatinine: 92/2.60 respectively. [id number] Progress note* Quick Note - Mary Willis RN - 10/27/2024 12:[address] Rodriguez notified and at bedside to speak to patient r/g Critical potasium and elevated glucose. [id number] Attending History and physical note* Elías Rodriguez MD - 10/27/2024 8:17 AM EST INTERVAL HISTORY AND PHYSICAL Patient Name: Enoc Armando Admit Date: 12261205 MR #: [id number] : 1945 The H&P has been reviewed [...] need for emergency surgery, need for pacemaker, MA, stroke, or cardiac arrest/. Patient voiced understanding and agreed to proceed. Sedation Plan: Moderate ASA Classification: ASA 3: A patient with severe systemic disease. Mallampati Score: Class III: Only the soft palate is visible Elías Rodriguez MD 10/27/2024 8:17 AM Source Note - Woo Small MD - 10/18/2024 1:20 PM EST General Cardiology New Patient Clinic Consult [facility] Heart [facility] Vascular 10/18/2024 Woo Small MD [address] [place] [address], 3rd Floor Medical Office [place] [id number] Patient: Enoc Armando Date of : 1945 [...] No follow-ups on file. Woo Small MD, [facility] Card[facility] P:[phone] F:[phone] History of Present Illness: Enoc Armando is a 78 y.o. man with a past medical history of insulin-dependent diabetes for 30 years, history of tobacco use, recent COVID infection with systolic dysfunction ejection fraction ranging from 35 to 45% who presented initially to [facility]. He underwent stress testing which showedinferior wall abnormality as well as ejection fraction of 50%. I initially met with him back in January and he was doing quite well, however today he presents with progressive symptoms of fatigue, malaise, and a recent heart failure exacerbation at [facility] for hypertensive emergency and acute flash [...] Cigarettes Smokeless Tobacco Never Allergies: Prednisone and Sswslag-dia-ivo reductase inhibitors All of the information has [...] 90 tablet, Rfl: 3 OXYGEN-AIR DELIVERY SYSTEMS [facility], Inhale 2 L/min See Admin Instructions ., [...] 50%, rest LVEF 51%. Echocardiogram reviewed from [facility], 10/11/2023 moderately decreased ejection fraction estimated [...] a medical history suggesting prior/existing ASCVD [facility] Work Phone: 1(142) 884-975912-27-2024 Hospital Discharge instructions* Discharge Instructions* Sonya King RN - 10/27/2024 8:16 AM EST [facility] Phys[facility] Post Cardiac Catheterization Discharge Instructions Site Care Leave Bandage in place the night of your catheterization. Watch for any bleeding or oozing from thesite. If this occurs, lie flat and place direct pressure on the bandage for 20 minutes. If bleedingreoccurs call [facility]. For groins, remove your bandage the [...] shower 24 hours after the procedure. Call [facility] at [phone] if you notice any of the following: [...] need of prescription assistance, please notify the [facility] nurse or call the office. If you were prescribed Plavix (clopidogrel), Effient (prasugrel), or Brilinta (ticagrelar) after your procedure, DO NOT STOP taking this medication unless told to do so by your [facility] international student counselor. Follow up appointments, tests or procedures will be on your discharge paperwork under What's next. Please call [facility] at [phone] to reschedule any appointments if needed or if you have any questions or concerns. Thank you! documented in this [id number] Instructions* Patient Instructions* Luisa Easley RN - 10/18/2024 1:27 PM EST How to Contact your Care Team: Provider: Dr. Woo Small MD Clinic Nurse: Luisa Vega RN Clinic MA: Ej Guidry MA REFILLS: When in need for refills please call your care team or the office at [phone]. Please include medication name, pharmacy name, and specify 30-day or 90-day supply. Please check with your pharmacy within 24 hours of request for your refill. You must follow up as directed to continue current refills. Thank you! Heart Catheterization Date of your procedure: 10/27/2024 at 8:00am Please arrive at [facility]. Please park in the garage next to the medical office building. If needed, lens edge grinder machine parking is available at the front entrance [...] questions or concerns please contact us at [phone]. documented in this [id number] History of Present illness Narrative* Woo Small MD - 10/18/2024 1:20 PM EST General Cardiology New Patient Clinic Consult [facility] Physician Group, Heart & Vascular 10/18/2024 Woo Small MD [address] [place] [address] 3rd Floor Medical Office [facility] [address] Patient: Enoc Armando Date of [...] No follow-ups on file. Woo Small MD, [facility] Non-Invasive Cardiology [facility] P:[phone] F:[phone] History of Present Illness: Enoc Armando is a 78 y.o. man with a past medical history of insulin-dependent diabetes for 30 years, history of tobacco use, recent COVID infection with systolic dysfunction ejection fraction ranging from 35 to 45% who presented initially to [facility]. He underwent stress testing which showedinferior wall abnormality as well as ejection fraction of 50%. I initially met with him back in January and he was doing quite well, however today he presents with progressive symptoms of fatigue, malaise, and a recent heart failure exacerbation at [facility] for hypertensive emergency and acute flash [...] Cigarettes Smokeless Tobacco Never Allergies: Prednisone and Dlyvkya-wbj-edw reductase inhibitors All of the information has [...] 50%, rest LVEF 51%. Echocardiogram reviewed from [facility], 10/11/2023 moderately decreased ejection fraction estimated [...] history suggesting prior/existing ASCVD documented in this [id number] NoteGeneral Cardiology New Patient Clinic Consult [facility] Physician [facility], Heart & Vascular 10/18/2024 Woo Small MD [address] [facility], 3rd Floor Medical Office Building [facility] [address] Patient: Enoc Armando [...] No follow-ups on file. Woo Small MD, [facility] Non-Invasive Cardiology [facility] P:[phone] F:[phone] History of Present Illness: Enoc Armando is a 78 y.o. man with a past medical history of insulin-dependent diabetes for 30 years, history of tobacco use, recent COVID infection with systolic dysfunction ejection fraction ranging from 35 to 45% who presented initially to [facility]. He underwent stress testing which showed inferior wall abnormality as well as ejection fraction of 50%. I initially met with him back in January and he was doing quite well, however today he presents with progressive symptoms of fatigue, malaise, and a recent heart failure exacerbation at [facility] for hypertensive emergency and acute flash [...] Cigarettes Smokeless Tobacco Never Allergies: Prednisone and Hnztavy-kck-rgp reductase inhibitors All of the information has [...] capsule, Take 1 ( (more content not included)...[facility]12-06-2024 Telephone encounter Note* Telephone Encounter - Luisa Easley RN - 10/06/2024 2:45 PM EST Spoke with pt and reviewed Dr. Small's comments and suggestions. Pt was agreeable to starting Imdur 30mg daily and confirmed appt with Dr. Small on 10/18 at 1:20pm in the [place] location. Pt expressedappreciation and understanding. 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 Small's comments and suggestions. Pt was agreeable to starting Imdur 30mg daily and confirmed appt with Dr. Small on 10/18 at 1:20pm in the [place] location. Pt expressedappreciation and understanding. 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 Hospitalized in [facility] with CHF, pleural effusions and elevated [...] being taken. Patient does not see a psychiatric security nurse. Eye exam is current. Currently taking: No [...] Neurological: Mental Status: He (more content not included)...[facility]09-20-2024 History of Present illness Narrative* Paty Ortega, [facility] - 07/21/2024 1:58 PM EDT Images [...] High flow O2, C-pap, etc. Hospitalized in [facility] with CHF, pleural effusions and elevated [...] being taken. Patient does not see a psychiatric security nurse. Eye exam is current. Currently taking: No [...] by mouth daily . OXYGEN-AIR DELIVERY SYSTEMS [facility], Inhale 2 L/min See Admin Instructions . [...] if BG <150 at HS. 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 Had bilat cataract extraction Dr. Lopez. Sees Dr. Browne in [place] every year routinely.Has blurred vision with low [...] Call if BG consistently <70 or >250. [phone] Continue to check blood sugar 3 times [...] CNP 07/21/24 1:21 PM documented in this [id number] Instructions* Patient Instructions* Luisa Easley RN - 04/24/2024 10:08 AM EDT How to Contact your Care Team: Provider: Dr. Woo Small MD Clinic Nurse: Luisa Easley RN Clinic MA: Ej Guidry MA REFILLS: When in need for refills please call your care team or the office at [phone]. Please include medication name, pharmacy name, and specify 30-day or 90-day supply. Please check with your pharmacy within 24 hours of request for your refill. You must follow up as directed to continue current refills. Thank you! documented in this [id number] History of Present illness Narrative* Woo Small MD - 04/24/2024 9:40 AM EDT General Cardiology New Patient Clinic Consult [facility], Heart & Vascular 04/24/2024 Woo Small MD [address] [place] [id number] Patient: Enoc Armando Date of : [...] 1 year (around 04/24/2025). Woo Small MD, [facility] Non-Invasive Cardiology [facility] P:[phone] F:[phone] History of Present Illness: Enoc Armando is a 78 y.o. man with a past medical history of insulin-dependent diabetes for 30 years, history of tobacco use, recent COVID infection with systolic dysfunction ejection fraction ranging from 35 to 45% who presented initially to [facility]. He underwent stress testing which showedno definite [...] Cigarettes Smokeless Tobacco Never Allergies: Prednisone and Lruqurx-wyb-moy reductase inhibitors All of the information has [...] 90 tablet, Rfl: 3 OXYGEN-AIR DELIVERY SYSTEMS [facility], Inhale 2 L/min See Admin Instructions ., [...] 50%, rest LVEF 51%. Echocardiogram reviewed from [facility], 10/11/2023 moderately decreased ejection fraction estimated [...] BILITOT 0.7 11/27/2023 The ASCVD Risk score ([place] DK, et al., 2019) failed to calculate for the following reasons: The 2019 ASCVD risk score is only valid for ages 40 to 79 The patient has a prior MA or stroke diagnosis documented in this [id number] Telephone encounter Note* Telephone Encounter - Ej Guidry MA - 03/28/2024 1:53 PM EDT Pt was last seen on 01/14/24 by Aylin Lacy CNP. Refills appropriate. Routing to Dr. Garay as Dr. Small is out of the office. [id number] Miscellaneous Notes* Telephone Encounter - Ej Guidry MA - 03/28/2024 1:53 PM EDT Pt was last seen on 01/14/24 by Aylin Lacy CNP. Refills appropriate. Routing to Dr. Garay as Dr. Small is out of the office. documented in this [id number] Evaluation + Plan note* Assessment & Plan Note - CULLEN Guzmán DNP - 02/24/2024 2:39 PM EDT Associated Problem(s): CKD (chronic kidney disease) Creatinine is stable at 1.92 and stable, stage IIIb, blood pressure is well controlled, diabetes well controlled, not using NSAIDs. [facility] Work Phone: 1(705) 734-980504-25-2024 Miscellaneous Notes* Assessment & Plan Note - [...] and metoprolol, no changes documented [facility] Work Phone: 1(584) 936-618504-25-2024 Evaluation + Plan note* Assessment & Plan Note - CULLEN Guzmán DNP - 02/24/2024 2:38 PM EDTAssociated Problem(s): Type 1 diabetes mellitus with diabetic neuropathy (Multi) Follows with endocrinology, is not to use SGLT2 due to Type I diabetes [facility] Work Phone: 1(467) 793-816204-25-2024 Evaluation + Plan note* Assessment & Plan Note - CULLEN Guzmán DNP - 02/24/2024 2:38 PM EDTAssociated Problem(s): Essential hypertension BP is well controlled on lisinopril and metoprolol, no changes [facility] Work Phone: 1(829) 680-111604-25-2024 History of Present illness Narrative* CULLEN Guzmán [...] 02/24/24 1:50 PM documented in this [facility] Work Phone: 1(428) 401-392504-19-2024 History of Present illness Narrative* Paty Ortega [...] High flow O2, C-pap, etc. Hospitalized in [facility] with CHF, pleural effusions and elevated [...] being taken. Patient does not see a psychiatric security nurse. Eye exam is current. Currently taking: No [...] hypertension Type 1 diabetes, under good control Enco Ariela Armando presents for follow-up of Type [...] if BG <150 at HS. 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 Had bilat cataract extraction Dr. Lopez. Sees Dr. Browne in [place] every year routinely.Has blurred vision with low [...] Call if BG consistently <70 or >250. [phone] Continue to check blood sugar 3 times [...] CNP 02/18/24 1:21 PM documented in this [id number] Instructions* Patient Instructions* Robert Dominguez RN - 01/14/2024 11:46 AM EDT How to Contact your Care Team: Provider: Dr. Woo Small MD Clinic Nurse: Luisa Easley RN REFILLS: When in need for refills please call your care team or the office at [phone]. Please include medication name, pharmacy name, and specify 30-day or 90-day supply. Please check with your pharmacy within 24 hours of request for your refill. You must follow up as directed to continue current refills. Thank you! documented in this [id number] History of Present illness Narrative* Aylin Lacy CNP - 01/14/2024 11:00 AM EDT General Cardiology Returning Patient Clinic Visit [facility], Heart & Vascular 01/14/2024 Aylin Lacy CNP [address] [facility] Medical Office [facility] [address] Patient: Enoc Armando Date of : 1945 (78 y.o.) Product Developer: Dr. Small PCP: Ryley Jeter MD Chief Complaint: Transitional care appointment Date of Service: 01/14/2024 Assessment and Plan: Systolic dysfunction with recovery of ejection fraction -Euvolemic on exam -Continue lisinopril 5 mg daily -Continue metoprolol succinate 25 mg daily -Continue Lasix 20 mg twice daily -He is following with nephrology in [place]. He has an upcoming appointment and labs [...] Next scheduled follow up. Aylin Lacy, MSN, FOOD PROCESSING CHEMIST, SENIOR POLICY ASSOCIATE-C, LINUX SERVER ADMINISTRATOR, ECG- General Cardiology [facility] History of Present Illness: Enoc Armando is a 78 y.o. man with a past medical history of hypertension, hyperlipidemia, insulin-dependent diabetes mellitus, CKD, smoker, emphysema, chronic hypoxemia and systolic dysfunction. He presents today for transitional care appointment. He was last seen in our office on 10/21/2023 by his primary international student counselor Dr. Small. Recent COVID infection at the end of last year and patient was notedto have systolic dysfunction with a ejection fraction ranging from 35 to 45%. He had left ventricular recovery noted on most recent echocardiogram from 11/30/2023, LVEF 63%. He presented to the [facility] on 11/27/2023 with complaints of respiratory [...] 25.50 Types: Cigarettes Smokeless Tobacco Never Allergies: Zzsjbvw-ekc-ltl reductase inhibitors All of the above information [...] to 77 The patient has a prior MA or stroke diagnosis documented in this [id number] Telephone encounter Note* Telephone Encounter - Ej Guidry MA - 12/29/2023 10:31 AM EST Pt's called in asking if pt needs to continue the lasix from hospitla if so he needs a refill.Per the note on 12/01/23 per Ellie Aguilar MUSEUM SPECIALIST: IV Lasix 20 mg BID, can transition to orals on discharge. Pt has an appt on 01-14-24 with Aylin HUDSON. Pended medication to Dr. Small for her to sign. [id number] Miscellaneous Notes* Telephone Encounter - Ej Guidry MA - 12/29/2023 10:31 AM EST Pt's called in asking if pt needs to continue the lasix from hospitla if so he needs a refill.Per the note on 12/01/23 per Ellie Aguilar MUSEUM SPECIALIST: IV Lasix 20 mg BID, can transition to orals on discharge. Pt has an appt on 01-14-24 with Aylin HUDSON. Pended medication to Dr. Small for her to sign. documented in this [id number] Miscellaneous Notes* Quick Note - Ellie Aguilar CNP - 12/01/2023 11:20 AM EST [id number] ENCOUNTER FOR HOME MEDICAL EQUIPMENT PATIENT: Enoc Armando : 1945 Statement of Care: I certify that Enoc Armando is under my care and that I, a Nurse Practitioner, Physician's Mall Manager, or Resident working with me, had a ttkc-ey-ahib encounter with this patient yesterday to evaluate and discuss the need for home medical equipment. I certify that based on the findings of this evaluation, which included but was not limited to the qyvu-rf-igmb requirements, the following home medical equipment is [...] no longer in ICU bed. On 2lpm [place]. Critical care will sign off. * CDI Query - Cintia Benitez MD - 11/29/2023 6:23 AM EST Query 2 of 2 Noted 11/27 [facility] PMHx documentation of CKD Clinical [...] renal status. For Example: CKD stage 3 [facility] CKD stage: (please stage, if known) Other (please specify) Chronic Kidney Disease Stages: Stage eGFR I > 90 II 60 - 89 III 30 - 59 IV 15 - 29 V < 15 or dialysis ESRD Thank you, Aubree CRAWFORD,RN Clinical Documentation circle beveler After business hours you may contact Ebony Dayana at [phone] (Weekdays until 10 PM and weekends 8 AM -10 PM) * CDI Query - Cintia Benitez MD - 11/29/2023 6:14 AM EST Noted 11/27 [facility] documentation of heart failure. Clinical Indicators: 11/27 [facility]: CHF....-Continue IV Lasix, [...] crackles at base Test results: 11/27: BNP: 24756 Please specify the acuity and type of heart failure in the progress notes. For Example: Acute on chronic systolic CHF POA Chronic systolic CHF, no acute exacerbation Other (please specify) Thank you, Aubree CRAWFORD,RN Clinical Documentation Tunnel Kiln Firer After business hours you may contact Ebony Link at [phone] (Weekdays until 10 PM and weekends 8 [...] currently. Priscilla Aranda RDN, LD Dietitian's Office [phone] * Quick Note - Carlita Lazaro RRT - 11/27/2023 5:43 AM EST Critical Glucose from [facility] reported to Norma Geiger MUSEUM SPECIALIST * Quick Note - Julia Chan RN [...] - Brief Progress Note PERMANENT 11/27/2023 04:43 [facility] ENOC ARMANDO Date of Service [...] adjustment * Quick Note - Carlita Lazaro, HEARING AID REPAIRER - 11/27/2023 4:20 AM EST Called by RN due to patient SpO2 87% on 2L. RN states she increased to 4L and patient was 90%. Wentto patient room and patient was diaphoretic and with increased WOB with RR at 37. Patient placed onbipap and Norma Juanjo AUTOMATIC SPOOLER OPERATOR notified. Patient was then transferred to MICU [...] came to room and replaced on bipap. AUTOMATIC SPOOLER OPERATOR came to see patient and request patient [...] Informed RT that patient has arrived from [facility]. Attempt to let dr Pereira aware of arrival from [facility] no answer will leave message. documented in this [id number] Hospital course Narrative* Ellie Aguilar, TRISTAN - 12/01/2023 11:03 AM EST [facility] [place] -- [facility] Enoc Armando Admitted: 11/27/2023 Discharge Date: 12/01/23 PCP Handoff Recommended Outpatient Testing None Results Pending At Discharge None Clinical Summary Enoc Armando is a 77 y.o. male patient of Ryley Jeter MD with history of HTN, HLD, DM Type I, CKD, COPD, chronic hypoxemic respiratory failure who presented to [facility] with respiratory distress . Severe Sepsis [...] Ryley Jeter MD [address] [facility] [address] Follow up Please call to schedule a [...] on 12/01/23, 11:10 AM documented in this [id number] History of Present illness Narrative* Cassius Jody, [...] Static: Supervision, without UE support, with device Field Broomer - Standing Static: wheeled walker Loss of Balance- Standing Static: (none) Standing Balance - Dynamic: Stand by assist Field Broomer - Standing Dynamic: wheeled walker Loss of Balance- Standing Dynamic: (none) Bed Mobility Supine to Sit: Contact guard assist, Head of bed elevated Field Broomer: (none) Skilled Intervention Provided: verbal cues, monitoring patient response with activity, environmental setup/modification, facilitation, provided step by step instructions For: efficient movement, safety during functional tasks, sequencing of movement Resulting in: improved activity tolerance, improved functional independence, improved performance, improved safety, increased upright tolerance for functional tasks Transfers Sit to Stand: Stand by assist Field Broomer: BUE, wheeled walker Additional Transfer Trial 2: Yes Sit to Stand Trial 2: Stand by assist Field Broomer Trial 2: wheeled walker, BUE Skilled Intervention [...] O2;) Prior Level of Function Level of [place] - Transfers/Ambulation/Mobility: Independent with functional transfers, Independent with household ambulation, Independent with community ambulation (no AD for in home ambulation, intermitant use of cane in community for longer distances) Level of [place] - ADLs: Independent Level of [place] - Homemaking: ( takes care of all [...] Enoc Armando Admit Date: 11/27/2023 MR #: [id number] : 1945 Current location: [facility] Physicians: Ryley Jeter MD (Family); Britton Geiger [...] NST in a week, spoke with his international student counselor Dr. Small, who will arrange to have [...] CHF, hypertension, hyperlipidemia, emphysema who presented to [facility] emergency department with a complaint of [...] T CO2 17. He was transferred to [facility] for further evaluation and treatment. [...] platelet count 220,000 Allergies: Allergies Allergen Reactions Ylvsvhq-Yno-Hdx Reductase Inhibitors Muscle cramps Home Medications: Outpatient [...] Oral Daily furosemide 20 mg Intravenous Q12H [facility] insulin glargine 14 Units Subcutaneous Nightly [...] Enoc Armando Admit Date: [id number] MR #: [id number] : 1945 Physicians: Ryley Jeter MD (Family); Ger Bansal DO (Referring) Assessment: Patient with 1. Respiratory failure 2. Suspicion for pneumonia 3. Possible congestive heart failure 4. Non-ST elevation MA. 5. History of COVID-19 infection. Plan: Continue patient on current therapy Continue patient on IV azithromycin Continue on ceftriaxone From [facility] 5 weeks ago patient was status post [...] patient is stable. Previous x-ray at [facility] had shown congestive changes and [...] 97.9 F (36.6 C) SpO2: 94% Allergies: Gehrtma-tyv-ovp reductase inhibitors Medications Reviewed. Current Facility-Administered Medications: [...] 25 mg, 25 mg, Oral, Daily, Norma Geiegr CNP,25 mg at 11/30/23 0843 nitroGLYCERIN (NITROSTAT) [...] excoriations Musculoskeletal: No joint swelling, non tender BASE ENGINEER: Awake, and Ox3 Wound: No Osborne Catheter: [...] Aguilar CNP - 11/30/2023 9:26 AM EST [facility] [place] Assessment and Plan Enoc Armando is a 77 y.o. male patient of Ryley Jeter MD with history of HTN, HLD, DM Type I, CKD, COPD, chronic hypoxemic respiratory failure who presented to [facility] with respiratory distress . Severe Sepsis [...] treatment for pneumonia and CHF Discharge Location: [facility] Quality Measures DVT Prophylaxis:scd Osborne Catheter: [...] Enoc Armando Admit Date: 1261205 MR #: [id number] : 1945 Physicians: Ryley Jeter MD (Family); Ger Bansal DO (Referring) Assessment: Patient with 1. Respiratory failure 2. Suspicion for pneumonia 3. Possible congestive heart failure 4. Non-ST elevation MA. 5. History of COVID-19 infection. Plan: Continue patient on current therapy Continue patient on IV azithromycin Continue on ceftriaxone From [facility] 5 weeks ago patient was status post [...] patient is stable. Previous x-ray at [facility] had shown congestive changes and [...] 97.7 F (36.5 C) SpO2: 97% Allergies: Dgrlrum-ote-aww reductase inhibitors Medications Reviewed. Current Facility-Administered Medications: [...] excoriations Musculoskeletal: No joint swelling, non tender BASE ENGINEER: Awake, and Ox3 Wound: No Osborne Catheter: [...] Enoc Armando Admit Date: 11/27/2023 MR #: [id number] : 1945 Current location: [facility] Physicians: Ryely Jeter MD (Family); Britton Geiger CNP (Referring) [...] CHF, hypertension, hyperlipidemia, emphysema who presented to [facility] emergency department with a complaint of [...] T CO2 17. He was transferred to [facility] for further evaluation and treatment. [...] platelet count 220,000 Allergies: Allergies Allergen Reactions Rtgviwu-Osh-Ngv Reductase Inhibitors Muscle cramps Home Medications: Outpatient [...] sodium chloride (PF) 5 mL Intravenous Q8H [facility] acetaminophen, dextrose, ipratropium-albuteroL, [COMPLETED] Insert Indwelling [...] Enoc Armando Admit Date: 1261205 MR #: [id number] : 1945 Physicians: Ryley Jeter MD (Family); Ger Bansal DO (Referring) Assessment: Patient with 1. Respiratory failure 2. Suspicion for pneumonia 3. Possible congestive heart failure 4. Non-ST elevation MA. 5. History of COVID-19 infection. Plan: Continue patient on current therapy Continue patient on IV azithromycin Continue on ceftriaxone From [facility] 5 weeks ago patient was status post [...] patient is stable. Previous x-ray at [facility] had shown congestive changes and [...] 97.9 F (36.6 C) SpO2: 97% Allergies: Wvaikhw-atp-jcu reductase inhibitors Medications Reviewed. Current Facility-Administered Medications: [...] excoriations Musculoskeletal: No joint swelling, non tender BASE ENGINEER: Awake, and Ox3 Wound: No Osborne Catheter: None IV Access: yes I reviewed Medications. I reviewed Labs. XR Chest 1 View Final Result Bilateral infrahilar patchy opacities, concerning for pneumonia. [employer] Workstation ID: [id number] Echocardiogram complete (Results Pending) [...] Benitez MD - 11/29/2023 1:37 PM EST [facility] [place] Assessment and Plan Enoc Armando is a 77 y.o. male patient of Ryley Jeter MD with history of HTN, HLD, DM Type I, CKD, COPD, chronic hypoxemic respiratory failure who presented to [facility] with respiratory distress . Severe Sepsis [...] Enoc Armando Admit Date: 11/27/2023 MR #: [id number] : 1945 Current location: [facility] Physicians: Ryley Jeter MD (Family); Britton Geiger [...] CHF, hypertension, hyperlipidemia, emphysema who presented to [facility] emergency department with a complaint of [...] T CO2 17. He was transferred to [facility] for further evaluation and treatment. [...] platelet count 220,000 Allergies: Allergies Allergen Reactions Hmqbgjo-Pif-Wtq Reductase Inhibitors Muscle cramps Home Medications: Outpatient [...] sodium chloride (PF) 5 mL Intravenous Q8H [facility] acetaminophen, dextrose, heparin, ipratropium-albuteroL, [COMPLETED] Insert [...] Cardiology Inpatient Follow-up Heart & Vascular [facility] 11/28/2023 Iraida Alvarado CNP [facility] Patient: Enoc Armando Date of : [...] - EKG showed SR suggest previous anterior MA, minor ST depression laterally similar to 10/11/2023 [...] is orient x 3. Telemetry: SR Allergies: Ryafcmi-pdg-phq reductase inhibitors Review of Systems: The following [...] in Direct Patient Care: 15 Narrative: This nurse tech visited the pt., Enoc, while rounding. Introduced [...] of his children and grandchildren. 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 This nurse tech helped the pt explore their feelings about their hospitalization and identify sources of support. This nurse tech provided information about Pastoral Care services and how to contact a nurse tech. Pastoral Care team will remain available to support patient and family PRN. 11/28/23 1116 Visit Background Visit With Patient Visit By Staff Try Out Person Visit Progression Introduction Visit Requested By Try Out Person Initiated Visit Source Try Out Person Initiated Visit Type Inpatient;Rounding Visit Circumstances and Events Routine Visit Visit Length (minutes) 15 Patient's Response to Pastoral Care Appeared to be well-engaged;Expressed Gratitude for Visit Visit Planning PRN;Pt aware to contact Try Out Person as needed Spiritual Assessment Assessed during this visit Sikh Assessment Not assessed during this visit Family [...] Facilitated Interventions Active Listening;Explained Role of the Try Out Person;Explored thoughts/feelings associated with current hospitalization;Relationships Spiritual/Emotional Outcomes Appreciative;Gratitude Spiritual Plan of Care Continue Healing Process;Receive Spiritual Support Signature: Bipin Claros MDiv Staff Try Out Person [facility] 24hr On-Call /Adriana On-Call Try Out Person She/Her/Hers * Cintia Benitez MD - 11/28/2023 10:49 AM EST [facility] [place] Assessment and Plan Enoc Armando is a 77 y.o. male patient of Ryley Jeter MD with history of HTN, HLD, DM Type I, CKD, COPD, chronic hypoxemic respiratory failure who presented to [facility] with respiratory distress . Severe Sepsis [...] Enoc Armando Admit Date: 1261205 MR #: [id number] : 1945 Physicians: Ryley Jeter MD (Family); Ger Bansal DO (Referring) Assessment: Patient with 1. Respiratory failure 2. Suspicion for pneumonia 3. Possible congestive heart failure 4. Non-ST elevation MA. 5. History of COVID-19 infection. Plan: Continue patient on current therapy Continue patient on IV azithromycin Continue on ceftriaxone From [facility] 5 weeks ago patient was status post [...] patient is stable. Previous x-ray at [facility] had shown congestive changes and [...] 97.7 F (36.5 C) SpO2: 97% Allergies: Cluxhdp-vaa-ekm reductase inhibitors Medications Reviewed. Current Facility-Administered Medications: [...] 0-150 mL/hr, Intravenous, PRN, Juanjo, Norma Tania, MUSEUM SPECIALIST Review of Systems: Constitutional: Negative for fatigue, [...] excoriations Musculoskeletal: No joint swelling, non tender BASE ENGINEER: Awake, and Ox3 Wound: No Osborne Catheter: [...] Bilateral infrahilar patchy opacities, concerning for pneumonia. [facility] [place] Workstation ID: [id number] Echocardiogram complete (Results Pending) [...] Date of : 1945 Site: [facility] Provider: Prashant Cesar MD ASSESSMENT/PLAN: Enoc Armando 77 y.o. male transferred last night for resp distress, NSTEMI, hypergllycemia from [facility] Three weeks ago testing [...] Azithromycin/Ceftriaxone Cardiovascular: Troponin 2361 BNP 16,730 Prior MA NSTEMI Cardiology consulted Heparin gtt Neuro/Muscular: Alert [...] Enoc Armando Admit Date: 11/27/2023 MR #: [id number] : 1945 Current location: [facility] Physicians: Ryley Jeter MD (Family); Britton Geiger [...] CHF, hypertension, hyperlipidemia, emphysema who presented to [facility] emergency department with a complaint of [...] T CO2 17. He was transferred to [facility] for further evaluation and treatment. [...] platelet count 220,000 Allergies: Allergies Allergen Reactions Nckpeis-Rlv-Eox Reductase Inhibitors Muscle cramps Home Medications: Outpatient [...] Date of : 1945 Site: [facility] Provider: Prashant Cesar MD ASSESSMENT/PLAN: Enoc Armando 77 y.o. male transferred last night for resp distress, NSTEMI, hypergllycemia from [facility] Three weeks ago testing [...] 30% Cardiovascular: Troponin 2361 BNP 16,730 Prior MA NSTEMI Cardiology consulted Heparin gtt Neuro/Muscular: Alert [...] in D5W infusion 0-70 Units/kg/hr Intravenous Continuous Nomra Geiger CNP 9.9 mL/hr at 11/27/23 0600 [...] 0-10 mL of mixtureIntravenous Once in imaging Benson, Norma Tania, MUSEUM SPECIALIST sodium chloride (PF) (NS) flush 5 mL [...] AM: Laboratory and Microbiology documented in this [id number] Consult note* Domenica Torre RN - 11/30/2023 [...] Balance - Static: Supervision, without UE support Field Broomer - Standing Static: (no device) Standing Balance - Dynamic: Stand by assist, Contact guard assist (without device; sba/ supervisionwith rollator) Field Broomer - Standing Dynamic: (trialed with and without rollator) Loss of Balance- Standing Dynamic: (left path deviation unsteadiness without device; no LOB with use of rollator and gait steadiness much improved.) Bed Mobility Rolling: Modified independent, Head of bed flat Supine to Sit: Modified independent, Head of bed flat Sit to Supine: (NT: pt up in chair post PT session) Field Broomer: (none) Transfers Sit to Stand: Stand by assist Bed to Chair: Stand by assist, Contact guard assist (no device) Stand Pivot Transfers: Stand by assist, Contact guard assist (no device) Field Broomer: (no AD) Additional Transfer Trial 2: Yes Sit to Stand Trial 2: Stand by assist (from chair with karin ue support) Field Broomer Trial 2: BUE Additional Transfer Trial 3: Yes Sit to Stand Trial 3: Stand by assist (from locked rollator seat) Field Broomer Trial 3: (locked rollator handles) Gait/Locomotion Gait [...] O2;) Prior Level of Function Level of [place] - Transfers/Ambulation/Mobility: Independent with functional transfers, Independent with household ambulation, Independent with community ambulation (no AD for in home ambulation, intermitant use of cane in community for longer distances) Level of [place] - ADLs: Independent Level of [place] - Homemaking: ( takes care of all [...] at discharge. Pt declined PT services at [facility]. Pt up in chair post PT session. [...] Estimated Energy Needs Total Energy Estimated Needs: 8498-7390 kcal/d Method for Estimating Needs: 25-30 kcal/kg current wt Total Protein Estimated Needs: 65 g/d Method for Estimating Needs: 1 g/kg current wt Grazyna Obregon RDN, LD, CLC Office * Chaya Mayfield RN - 11/29/2023 9:30 AM ESTAssociated Order(s): IP CONSULT TO HUNTING GUIDE Met with pt for diabetes education. States [...] 4:07 PM ESTAssociated Order(s): IP CONSULT TO PLAN MANAGER See earlier consult * Gaudencio Pabon MD - 11/27/2023 2:50 PM EST Patient Name: Enoc Armando MR #: [id number] : 1945 Physicians: Ryley Jeter MD (Family); [...] COVID-19 infection, and then was admitted in [facility]. At that time he was having respiratory failure, and also was having bilateral infiltrates and was found with echocardiogram with ejection fraction of 35%. At [facility], patient was treated with BiPAP, ceftriaxone, azithromycin, [...] failure, [place] [address], And troponin of 9000. Patient also had [...] Information: I have reviewed the patient's allergies. Tensmkw-xmn-tem reductase inhibitors Review of Systems: Review of [...] Bilateral infrahilar patchy opacities, concerning for pneumonia. [employer] Workstation ID: [id number] Echocardiogram complete (Results Pending) [...] Possible congestive heart failure 4. Non-ST elevation MA. 5. History of COVID-19 infection. Plan. Continue patient on current therapy Patient currently on IV azithromycin Patient on ceftriaxone From [facility] 5 weeks ago patient was status post [...] patient is stable. Previous x-ray at [facility] had shown congestive changes and [...] Enoc Armando Admit Date: 11/27/2023 MR #: [id number] : 1945 Current location: [facility] Physicians: Ryley Jeter MD (Family); Britton Geiger [...] CHF, hypertension, hyperlipidemia, emphysema who presented to [facility] emergency department with a complaint of [...] T CO2 17. He was transferred to [facility] for further evaluation and treatment. [...] platelet count 220,000 Allergies: Allergies Allergen Reactions Efkqjvq-Vwr-Djw Reductase Inhibitors Muscle cramps Home Medications: Outpatient [...] Q12H DIDI ipratropium-albuteroL 3 mL Inhalation Q4H [facility] metoprolol succinate 25 mg Oral Daily [...] reviewed showed sinus rhythm suggest previous anterior MA minor ST depression laterally similar to 10/11/2023 [...] testing positive initially he was hospitalized at [facility] on BiPAP. Communication is a bit difficult [...] Information: I have reviewed the patient's allergies. Omfowqr-yst-sma reductase inhibitors Home Medications: Outpatient Medications as [...] Enoc Armando Admit Date: 1261205 MR #: [id number] : 1945 Physicians: Ryley Jeter MD (Family); Ger Bansal DO (Referring) Julia Parker MD documented in this [id number] History and physical note* Norma Geiger CNP - 11/27/2023 3:12 AM EST [facility] [place] [facility] Patient Name: Enoc Armando : 1945 MR #: [id number] Admit Date: 11/27/2023 Physicians: Ryley Jeter MD (Family); Ger Bansal DO (Referring) Enoc Armando is a 77 y.o. male patient of Ryley Jeter MD with history of HTN, HLD, DM Type I, CKD, COPD, chronic hypoxemic respiratory failure who presented to [facility] with respiratory distress . Severe Sepsis [...] DKA protocol. Consult endocrinology, DM education, and head of strategy Essential Hypertension Dyslipidemia Continue amlodipine, metoprolol, ezetimibe [...] of Ryley Jeter MD, who presented to [facility] with respiratory distress. The [...] Information I have reviewed the patient's allergies. Zzqyjuh-nex-mog reductase inhibitors Home Medications Home medications were [...] respiratory failure who presented to [facility] with respiratory distress . 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 EMS reports an O2 level in [...] ask the patient if he had a international student counselor and he said yes. Patient sees Dr. Small at [place] and is scheduled to have a stress test next week. Patient has denied any chest pain his entire time here. I did speak to the international student counselor on-call Dr. Parker and she agreed with a dose of IV Lasix and starting the patient on heparin which will be done. Patient is improved at present but we will continue to monitor the patient until a bed becomes available at [place]. The patient has been accepted by the [...] performed using a different testing methodology at [facility] than at other [facility] [...] is performed using different testing methodology at [facility] than at other [facility] [...] performed using a different testing methodology at [facility] than at other [facility] [...] TROPONIN I, HIGH SENSITIVITY ED Course & [facility] ED Course as of 11/27/23 0106 WedNov 26, 2023 2142 Twelve-lead EKG interpreted by myself at 2120 1 sinus tachycardia at 113 2 left axis deviation3 nonspecific ST-T wave changes [MS] 2249 Troponin I, High Sensitivity(!!): 3,473 [MS] ED Course User Index [MS] Ger Bansal DO Diagnoses as of 11/27/23 0106 NSTEMI (non-ST elevated myocardial infarction) ([facility]/HCC) MADONNA (acute kidney injury) ([facility]/HCC) Acute combined systolic and diastolic congestive [...] Ghassan Tovar 11/26/2023 10:02 PM Dictation workstation: [id number] Medical Decision Making Patient will be transferred in stable condition to [facility] in [place]. 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 EMS reports an O2 level in [...] ask the patient if he had a international student counselor and he said yes. Patient sees Dr. Small at [place] and is scheduled to have a stress test next week. Patient has denied any chest pain his entire time here. I did speak to the international student counselor on-call Dr. Parker and she agreed with a dose of IV Lasix and starting the patient on heparin which will be done. Patient is improved at present but we will continue to monitor the patient until a bed becomes available at [place]. The patient has been accepted by the [...] performed using a different testing methodology at [facility] than at other [facility] [...] is performed using different testing methodology at [facility] than at other [facility] [...] performed using a different testing methodology at [facility] than at other [facility] [...] of 11/27/23105 NSTEMI (non-ST elevated myocardial infarction) ([facility]/HCC) MADONNA (acute kidney injury) ([facility]/HCC) Acute combined systolic and diastolic congestive [...] Ghassan Tovar 11/26/2023 10:02 PM Dictation workstation: [id number] Medical Decision Making Patient will be transferred in stable condition to [facility] in [place]. Procedure Critical Care Performed by: Ger Bansal [...] another facility Ger Bansal DO 11/27/23 0119 [facility] Work Phone: 1(367) 663-723401-02-2024 History of Present illness Narrative* Mary Vargas MD - 11/02/2023 4:50 PM EST Patient called and reported that he needs Humalog Rx changed due to formulary change. Rx mailed forAdmelog Solostar 15 ml, 11 refills. CD documented in this [id number] History of Present illness Narrative* Woo Small MD - 10/21/2023 9:00 AM EST General Cardiology New Patient Clinic Consult [facility], Heart & Vascular 10/21/2023 Woo Small MD [address] [place] [address] Medical [facility] [id number] Patient: Enoc Armando Date [...] 6 months (around 04/21/2024). Woo Small MD, [facility] Non-Invasive Cardiology [facility] Heart and Vascular [facility] P:[phone] F:[phone] History of Present Illness: Enoc Armando is a 77 y.o. man with a past medical history of insulin-dependent diabetes for 30 years, history of tobacco use, recent COVID infection with systolic dysfunction ejection fraction ranging from 35 to 45% who presents today to establish care. Patient states that he was critically ill andhospitalized at [facility], on BiPAP. Prior to hospitalization patient denied [...] 25.50 Types: Cigarettes Smokeless Tobacco Never Allergies: Xutjybn-vbb-mee reductase inhibitors All of the information has [...] appropriate conversation Cardiovascular Studies: Echocardiogram reviewed from [facility], 10/11/2023 moderately decreased ejection fraction estimated [...] Total Cholesterol: 156 mg/dL documented in this [id number] Instructions* Patient Instructions* Luisa Easley RN - 10/21/2023 8:54 AM EST How to Contact your Care Team: Provider: Dr. Woo Small MD Clinic Nurse: Luisa Easley RN REFILLS: When in need for refills please call your care team or the office at [phone]. Please include medication name, pharmacy name, and [...] questions please contact your care team or [phone]. documented in this [id number] Nurse Note* Moody Gorman RN - 10/13/2023 7:25 PM EST Pt IVs removed intact, home O2 has just been delivered and family given instruction by [employer]. Pt leaving by wheelchair to discharge doors, daughter driving. [facility]2023 Nurse Note* Moody Gorman RN - [...] around. Repeated re-education is not working. * oMody Gorman RN - 10/12/2023 3:45 PM EST [...] - 10/11/2023 10:00 AM EST , Alice ([phone]), called and requesting and update. Update provided. [...] 112, RR 24. documented in this [facility] Work Phone: 1(262) 705-865912-13-2023 Nurse Note* Geni Lynne RN - 10/13/2023 3:56 PM EST Discharge instructions reviewed with pt. Printed and verbal education given on covid, chf, and homeoxygen use/safety. Pt verbalized understanding of all instructions. Walker rx written by dr rivera. Awaiting home oxygen set up. [facility]2023 Hospital Discharge instructions* Discharge Instr - [...] or approved for treating a specific patient. [employer]. and its affiliatesdisclaim any warranty or liability relating to this information or the use thereof. The use of thisinformation is governed by the Terms of Use, available at https://www.CytoSolv.com/en/know/jzwrhnfi-xtwuojdtuyhwg-orcah 2022 [employer]. and its affiliates and/or licensors. All [...] or approved for treating a specific patient. [employer]. and its affiliatesdisclaim any warranty or liability relating to this information or the use thereof. The use of thisinformation is governed by the Terms of Use, available at https://www.MyTinkser.com/en/know/woulakrf-xosykcfqhgkxd-eyvuu Copyright 2022 [employer]. and its affiliates and/or licensors. All [...] Do not take any other prescription drugs, zfea-rul-gyeikey (OTC) drugs, herbals, or diet aids without [...] diet are needed? Ask your doctor or head of strategy what diet is best for you. The [...] or approved for treating a specific patient. [employer] and its affiliatesdisclaim any warranty or liability relating to this information or the use thereof. The use of thisinformation is governed by the Terms of Use, available at https://www.CytoSolv.com/en/know/cxqpvmva-cocmmpbuwgqcv-zxxua Copyright 2022 [employer]. and its affiliates and/or licensors. All rights reserved. documented in this [facility] Work Phone: 1(108) 949-362412-13-2023 Miscellaneous Notes* Documentation Clarification Note - Vera aMri MD - 10/13/2023 3:06 PM EST PATIENT: ENOC ARMANDO : 1945 ADMIT DATE: 10/11/2023 1:08 AM DISCH DATE: RESPONDING PROVIDER #: [id number] PROVIDER RESPONSE TEXT: Sepsis with associated respiratory [...] hypoxia], hypertensive emergency, hyperglycemia, and elevated troponin. Extension Service Specialist consult documents Acute hypoxemic respiratory failure. Treatment: [...] with current management. documented in this [facility] Work Phone: [phone] 458-217912-13-2023 Note* Documentation Clarification Note - Vera Mari MD - 10/13/2023 3:06 PM EST PATIENT: ENOC ARMANDO : 1945 ADMIT DATE: 10/11/2023 1:08 AM DISCH DATE: RESPONDING PROVIDER #: [id number] PROVIDER RESPONSE TEXT: Sepsis with associated respiratory [...] hypoxia], hypertensive emergency, hyperglycemia, and elevated troponin. Extension Service Specialist consult documents Acute hypoxemic respiratory failure. Treatment: [...] by: VERA RIVERA MD 10/13/2023 3:05 PM [facility] Work Phone: 1([phone]) 737-990612-13-2023 History of Present illness Narrative* JENNIFER Almanza [...] Prior Function Per Pt/Caregiver Report Level of [place]: Independent with ADLs and functional transfers, Independent [...] length Comments/Distance (ft) 1: 88ft Outcome Measures: [facility] Basic Mobility Turning from your back [...] Bathroom Equipment: None Prior Function: Level of [place]: Independent with ADLs and functional transfers, Independent [...] Function: Gross Grasp: Functional Coordination: Functional Outcome Measures:[facility] Daily Activity Putting on and taking [...] 10/13/23 Expected End: 10/27/23 * Phylicia Reyes, FOOD PROCESSING CHEMIST-MUSEUM SPECIALIST, DNP - 10/13/2023 10:18 AM EST Subjective Data: Patient examined and denies any chest pain/pressure/discomfort, palpitations, worsening SOB, dizziness, or lower extremity edema. He does not currently follow with a Product Developer. Overnight Events: None Objective Data: Last Recorded [...] result verified on 10/11/2023 0209 on specimen/case [id number] called with component [facility] for procedure Troponin I, High [...] 13-18 <7.5 7-12 <8.0 0- 6 7.5-8.5 [employer]. Diabetes Care 33(S1), Nov 2009. 02/12/2023 08:57 AM 7.7 % Final Comment: Diagnosis of Diabetes-Adults Non-Diabetic: < or = 5.6% Increased risk for developing diabetes: 5.7-6.4% Diagnostic of diabetes: > or = 6.5% . Monitoring of Diabetes Age (y) Therapeutic Goal (%) Adults: >18 <7.0 Pediatrics: 13-18 <7.5 7-12 <8.0 0- 6 7.5-8.5 [employer]. Diabetes Care 33(S1), Nov 2009. [...] Assessment Information (1): baseline creat 1.6-1.9 per land law examiner; A1C 7.4 09/27, 7.6 8/l Nutrition Diagnosis [...] result verified on 10/11/2023 0209 on specimen/case [id number] called with component [facility] for procedure Troponin I, High [...] 13-18 <7.5 7-12 <8.0 0- 6 7.5-8.5 [employer]. Diabetes Care 33(S1), Nov 2009. 02/12/2023 08:57 AM 7.7 % Final Comment: Diagnosis of Diabetes-Adults Non-Diabetic: < or = 5.6% Increased risk for developing diabetes: 5.7-6.4% Diagnostic of diabetes: > or = 6.5% . Monitoring of Diabetes Age (y) Therapeutic Goal (%) Adults: >18 <7.0 Pediatrics: 13-18 <7.5 7-12 <8.0 0- 6 7.5-8.5 [employer]. Diabetes Care 33(S1), Nov 2009. [...] around 1.8,arthritis and smoking. Came to ED [facility] on 10/11/2023 complaining of shortness of [...] should have [facility] as an outpatient. - Due to reduced [...] 10/11/2023 6:18:47 PM Transthoracic Echo (TTE) Complete [place] [id number], TRANSTHORACIC ECHOCARDIOGRAM REPORT Patient Name: ENOC Titus TR Reading Physician: [id number] Jose Enrique Molina MD Study Date: 10/11/2023 Ordering Provider: [id number] VERA RIVERA MRN/PID: [id number] Fellow: Nurse: Jana See RN Date of /Age: 2 1945 / 77 years Remote Pilot Operator: Cecilio Gabriel RDCS Gender: M Additional Staff: Height: 170.18 cm Admit Date: Weight: 71.67 kg Admission Status: Inpatient - Routine BSA: 1.83 m2 Department Location: [address]-ICU Blood Pressure: 141 /71 mmHg Study Type: TRANSTHORACIC ECHO (TTE) COMPLETE Diagnosis/ICD: Acute on chronic systolic (congestive) heart failure (CHF)-I50.23 CPT Codes: Echo Complete w Full Doppler-59027 Study Detail: The following Echo studies were [...] LA Area A2C: 16.2 cm2 LA Major [place] A4C: 5.3 cm LA Major [place] A2C: 5.0 cm LA Volume Index: 23.9 ml/m2 LA Vol A4C: 43.7 ml LA Vol A2C: 43.3 ml LV SYSTOLIC FUNCTION BY 2D PLANIMETRY (MOD): Normal Ranges: EF-A4C View: 45.6 % (>=55%) EF-A2C View: 40.9 % EF-Biplane: 44.2 % AORTIC VALVE: Normal Ranges: LVOT Diameter: 1.80 cm (1.8-2.4cm) RIGHT VENTRICLE: RV Basal 3.49 cm RV Mid 2.45 cm RV Major 7.8 cm [id number] Jose Enrique Molina MD Electronically signed on 10/11/2023 at 9:43:19 AM Final XR chest 1 view Narrative: Interpreted By: Kahlil Fagan, STUDY: XR CHEST 1 VIEW; 10/11/2023 1:30 am INDICATION: Signs/Symptoms:Cough. COMPARISON: Chest radiograph 11/04/2012 ACCESSION NUMBER(S): [id number] ORDERING CLINICIAN: AURY ROUSE FINDINGS: SUPPORT DEVICES: [...] Kahlil Fagan 10/11/2023 1:33 AM Dictation workstation: [id number] Physical Exam Constitutional: Appearance: Normal appearance. HENT: [...] on sliding scale insulin. A1c 7.4 appreciate fish processor input. Oxygen as tolerated, currently liters. PT, OT consult for generalized weakness. Vitamin D, zinc DVT prophylaxis on heparin. CODE STATUS full. Disposition in 24 to 48 hours. Total time spent 35 minutes. Vera Rivera MD * Consuelo Fischer RN - 10/11/2023 2:04 PM EST 10/11/23 7853 Discharge Planning Living Arrangements Spouse/significant other Support [...] Consuelo Fischer BSN/RN-TCC documented in this [facility] Work Phone: [phone] 379-131912-13-2023 Hospital course Narrative* Vera Mari MD - [...] Your Medications These medications were sent to [facility] [address] [address] metoprolol succinate XL 25 mg 24 hr tablet These medications were sent to [facility] [address] [place] [address] Hours: 8 AM to 5:30 Mon-Fri, 8 [...] up with home oxygen. Patientalso was sore fish processor discharged his dexamethasone and antibiotics as cultures seems to be negative. Clinically stable. Patient also had elevated troponin secondary due to above seen by cardiology, Dr. De Dios, started on metoprolol, aspirin initially which which can be changed to 81 mg daily. Jaundice and Zetia also were started. Patient also has seen Dr. Albetr, land law examiner for acute on chronic kidney disease secondary [...] Department Center 02/24/2024 1:45 PM Maricruz Albert, FOOD PROCESSING CHEMIST-[facility], [facility] [id number] [facility] Dr. Albert, nephrology in [address] De Dios, cardiology in 2 to 4 weeks. Total discharge time 40 minutes. Vera Rivera MD documented in this [facility] Work Phone: [phone] 456-648512-13-2023 Nurse Note* Moody Gorman RN - 10/13/2023 12:27 PM EST Pt is AAO. He is using his call light today when he wants to use the bathroom. He has had loose stools, but less frequent. [facility] Work Phone: [phone] 381-262312-12-2023 Nurse Note* Moody Gorman RN - 10/12/2023 5:25 PM EST Pt is alert to situation at this time and able to explain his diagnosis, but still impulsive when moving and unsteady. [facility] Work Phone: [phone] 553-214312-12-2023 Nurse Note* Moody Gorman RN - 10/12/2023 4:42 PM EST Pt continues to try and leave the bed and chair without his call light. When asked what he needs orwhere he wants to go, pt is unable to articulate his motivation except the general desire to move around. Repeated re-education is not working. [facility] Work Phone: [phone] 509-405912-12-2023 Nurse Note* Moody Gorman RN - 10/12/2023 3:45 PM EST Answered chair alarm. Pt is becoming increasingly confused and restless in general. He is aware of himself and other people, but is becoming impulsive in getting out of bed or his chair. Pt ambulatedto the bathroom, O2 increased to 5L for movement per RT. Pt assisted back to bed, bed alarm activated. [facility] Work Phone: [phone] Nurse Note* Moody Gorman RN - 10/12/2023 8:00 AM EST Pt is AAO, uses his call light appropriately. Pt currently on RA. Pt c/o weakness in his legs, but is able to sit up at the edge of the bed and walk with a walker to lean on for stability. [facility] Work Phone: [phone] 148-612812-12-2023 Plan of care note* Care Plan - [...] to address these barriers include repeated re-orientation. [facility] Work Phone: [phone] 536-426012-12-2023 Plan of care note* Care Plan - Jody Ball RN - 10/12/2023 5:59 AM EST The clinical goals for the shift include Blood sugar will return to normal limits by the end of theshift Over the shift, Pt tolerated BIPAP well. No signs of respiratory distress. [facility]12-11-2023 Consult note* Tyrone Zimmerman MD - [...] around 1.8,arthritis and smoking. Came to ED [facility] on 10/11/2023 complaining of shortness of [...] result verified on 10/11/2023 0209 on specimen/case [id number] called with component [facility] for procedure Troponin I, High [...] 13-18 <7.5 7-12 <8.0 0- 6 7.5-8.5 [employer]. Diabetes Care 33(S1), Nov 2009. 02/12/2023 08:57 AM 7.7 (A) % Final Comment: Diagnosis of Diabetes-Adults Non-Diabetic: < or = 5.6% Increased risk for developing diabetes: 5.7-6.4% Diagnostic of diabetes: > or = 6.5% . Monitoring of Diabetes Age (y) Therapeutic Goal (%) Adults: >18 <7.0 Pediatrics: 13-18 <7.5 7-12 <8.0 0- 6 7.5-8.5 [employer]. Diabetes Care 33(S1), Nov 2009. [...] Family history unknown: Yes Allergies: Prednisone and Czagqth-lgp-doh reductase inhibitors Inpatient Medications: Scheduled medications Medication [...] around 1.8,arthritis and smoking. Came to ED [facility] on 10/11/2023 complaining of shortness of [...] possible, have [facility] as an outpatient. - Due to reduced [...] Code Status: Full Code Tyrone Zimmerman MD [facility] Work Phone: [phone] 657-152412-11-2023 Consult note* Tyrone Zimmerman MD - 10/11/2023 [...] around 1.8,arthritis and smoking. Came to ED [facility] on 10/11/2023 complaining of shortness of [...] result verified on 10/11/2023 0209 on specimen/case [id number] called with component [facility] for procedure Troponin I, High [...] 13-18 <7.5 7-12 <8.0 0- 6 7.5-8.5 [employer]. Diabetes Care 33(S1), Nov 2009. 02/12/2023 08:57 AM 7.7 (A) % Final Comment: Diagnosis of Diabetes-Adults Non-Diabetic: < or = 5.6% Increased risk for developing diabetes: 5.7-6.4% Diagnostic of diabetes: > or = 6.5% . Monitoring of Diabetes Age (y) Therapeutic Goal (%) Adults: >18 <7.0 Pediatrics: 13-18 <7.5 7-12 <8.0 0- 6 7.5-8.5 [employer]. Diabetes Care 33(S1), Nov 2009. [...] has a past medical history of Diabetes ([facility]/HCC). Past Surgical History: He has no past surgical history on file. Social History: He reports that he has been smoking cigarettes. He has never used smokeless tobacco. He reports that he does not drink alcohol and does not use drugs. Family History: Family History Family history unknown: Yes Allergies: Prednisone and Rfcxfyu-ggf-hyy reductase inhibitors Inpatient Medications: Scheduled medications Medication [...] around 1.8,arthritis and smoking. Came to ED [facility] on 10/11/2023 complaining of shortness of [...] possible, have [facility] as an outpatient. - Due to reduced [...] 12:13 PM ESTAssociated Order(s): IP CONSULT TO PLAN MANAGER Reason For Consult Acute respiratory failure History [...] has a past medical history of Diabetes ([facility]). Surgical History He has no past surgical history on file. Social History He reports that he has been smoking cigarettes. He has never used smokeless tobacco. He reports that he does not drink alcohol and does not use drugs. Family History Family History Family history unknown: Yes Allergies Prednisone and Avnviwt-imw-ehi reductase inhibitors Review of Systems A full [...] Ayanna Albert DO documented in this [facility] Work Phone: [phone] Consult note* Ayanna Albert DO - 10/11/2023 12:13 PM ESTAssociated Order(s): IP CONSULT TO PLAN MANAGER Reason For Consult Acute respiratory failure History [...] has a past medical history of Diabetes ([facility]). Surgical History He has no past surgical history on file. Social History He reports that he has been smoking cigarettes. He has never used smokeless tobacco. He reports that he does not drink alcohol and does not use drugs. Family History Family History Family history unknown: Yes Allergies Prednisone and Bjclwqh-snf-liu reductase inhibitors Review of Systems A full [...] procedures Principal Problem: COVID-19 Ayanna Albert DO [facility] Work Phone: [phone] 251-708512-11-2023 Plan of care note* Care Plan - Vera Mari MD - 10/11/2023 11:49 AM EST Patient's reviewed. Currently on 5 L of oxygen by nasal cannula, sitting in bed. wants him to be full code with DNI. Continue with current management. [facility] Work Phone: [phone] Nurse Note* Geni Wall RN - 10/11/2023 10:00 AM EST , Alice ([phone]), called and requesting and update. Update provided. She is Enoc's POA and requests in the event of cardiac he receive CPR and life sustaining medications. She is unsure if she wants him intubated and wants more time to think about it. She reported she will be visiting [place] today around 11am. [facility]12-11-2023 Nurse Note* Zoila Mota RN [...] Patient currently sleeping, HR 112, RR 24. [facility] Work Phone: [phone] 751-184912-11-2023 History and physical note* Praful Pineda MD [...] Family history unknown: Yes Allergies Prednisone and Orkimsy-vqj-trh reductase inhibitors Medications Prior to Admission Medication [...] Straw, Yellow Appearance, Urine Clear Clear Specific [place], Urine 1.014 1.005 - 1.035 pH, Urine [...] Signs/Symptoms:Cough. COMPARISON: Chest radiograph 11/04/2012 ACCESSION NUMBER(S): [id number] ORDERING CLINICIAN: AURY ROUSE FINDINGS: SUPPORT DEVICES: [...] Kahlil Fagan 10/11/2023 1:33 AM Dictation workstation: [id number] Assessment/Plan 77-year-old male, smoker, with a past [...] are not fully corrected) Praful Pineda MD [facility] Work Phone: [phone] History and physical note* Praful Pineda MD [...] History Past Medical History: Diagnosis Date Diabetes ([facility]) Pertinent medical history also documented in [...] Family history unknown: Yes Allergies Prednisone and Gwulqgp-ide-kmr reductase inhibitors Medications Prior to Admission Medication [...] Straw, Yellow Appearance, Urine Clear Clear Specific [place], Urine 1.014 1.005 - 1.035 pH, Urine [...] Signs/Symptoms:Cough. COMPARISON: Chest radiograph 11/04/2012 ACCESSION NUMBER(S): [id number] ORDERING CLINICIAN: AURY ROUSE FINDINGS: SUPPORT DEVICES: [...] Kahlil Fagan 10/11/2023 1:33 AM Dictation workstation: [id number] Assessment/Plan 77-year-old male, smoker, with a past [...] corrected) Praful Pineda MD documented in this [facility] Work Phone: [phone] 878-437612-11-2023 Emergency department Note* Aury Rouse, - 10/11/2023 [...] ED and establish an IV.Patient admits to 00-fvnk-btay history of cigarette use and currently smokes 1 pack/day. Activity makes his symptoms worse rest helps to some extent. History provided by: EMS personnel and patient diplomatic interpreter used: No Physical Exam Vitals and nursing note reviewed. Constitutional: General: He is awake. He is in acute distress. Appearance: Normal appearance. He is overweight. He is ill-appearing. HENT: Head: Normocephalic and atraumatic. Right Ear: External ear normal. Decreased hearing noted. Left Ear: External ear normal. Decreased hearing noted. Nose: Congestion and rhinorrhea present. Rhinorrhea is clear. Mouth/Throat: Lips: [place]. Mouth: Mucous membranes are moist. Pharynx: Oropharynx [...] specimens andhas been validated for use at [facility]. Negative results do not preclude COVID-19 [...] in ng/mL Fibrinogen Equivalent Units (FEU). Per grader patrol's instructions for use, a value of less [...] performed using a different testing methodology at [facility] than at other [facility] hospitals. Direct result comparisons should only [...] performed using a different testing methodology at [facility] than at other [facility] [...] is performed using different testing methodology at [facility] than at other [facility] [...] Color, Urine Yellow Appearance, Urine Clear Specific [place], Urine 1.014 pH, Urine 5.0 Protein, Urine [...] and has been validated for use at [facility]. Negative results do not preclude Influenza A/B infections, and should not be used as the sole basis for diagnosis, treatment, or other management decisions. IfInfluenza A/B and RSV PCR results are negative, testing for Parainfluenza virus, Adenovirus and Metapneumovirus is routinely performed for [facility] pediatric oncology and intensive care inpatients, and isavailable on other patients by placing an add-on request. RSV PCR - Normal RSV PCR Not Detected Narrative: This assay is an FDA-cleared, in vitro diagnostic nucleic acid amplification test for the detectionof RSV from nasopharyngeal specimens, and has been validated for use at [facility]. Negative results do not preclude RSV infections, and should not be used as the sole basis for diagnosis, treatment, or other management decisions. If Influenza A/B and RSV PCR results are negative, testing for Parainfluenza virus, Adenovirus and Metapneumovirus is routinely performed for pediatric oncology and intensive care inpatients at [facility], and is available on other patients by [...] Abnormality Status --------- ------ Urinalysis with Reflex M...[[id number]] Abnormal Final result Extra Urine Orosco Tube[[id number]] Final result Please view results for these tests on the individual orders. TROPONIN SERIES- (INITIAL, 1 HR) Narrative: The following orders were created for panel order Troponin I Series, High Sensitivity (0, 1 HR). Procedure Abnormality Status --------- ------ Troponin I, High Sensiti...[[id number]] Abnormal Final result Troponin, High Sensitivi...[[id number]] Abnormal Final result Please view results for [...] Kahlil Fagan 10/11/2023 1:33 AM Dictation workstation: [id number] Critical Care Performed by: Aury Rouse DO [...] Q waves inthe anterior precordial leads. The NM interval is 148 ms. QRS durations 82 [...] did help a little. documented in this [facility] Work Phone: [phone] 508-344912-11-2023 Emergency department Triage note* VANDANA Cosby - 10/11/2023 1:08 AM EST Pt brought in via EMS for fevers and chills. Pt reports being ill for the last 2-3 days. Pt states that he has been having fevers, chills, weakness, fatigue, headaches, body aches with some SOB. Pt was given a breathing treatment in route and states that it did help a little. [facility] Work Phone: [phone]) 536-409012-11-2023 Physician Emergency department Note* Aury Rouse DO [...] ED and establish an IV.Patient admits to 77-jxjw-dsuq history of cigarette use and currently smokes 1 pack/day. Activity makes his symptoms worse rest helps to some extent. History provided by: EMS personnel and patient diplomatic interpreter used: No Physical Exam Vitals and nursing note reviewed. Constitutional: General: He is awake. He is in acute distress. Appearance: Normal appearance. He is overweight. He is ill-appearing. HENT: Head: Normocephalic and atraumatic. Right Ear: External ear normal. Decreased hearing noted. Left Ear: External ear normal. Decreased hearing noted. Nose: Congestion and rhinorrhea present. Rhinorrhea is clear. Mouth/Throat: Lips: [place]. Mouth: Mucous membranes are moist. Pharynx: Oropharynx [...] specimens andhas been validated for use at [facility]. Negative results do not preclude COVID-19 [...] in ng/mL Fibrinogen Equivalent Units (FEU). Per grader patrol's instructions for use, a value of less [...] performed using a different testing methodology at [facility] than at other [facility] hospitals. Direct result comparisons should only [...] performed using a different testing methodology at [facility] than at other [facility] [...] is performed using different testing methodology at [facility] than at other [facility] [...] Color, Urine Yellow Appearance, Urine Clear Specific [place], Urine 1.014 pH, Urine 5.0 Protein, Urine [...] and has been validated for use at [facility]. Negative results do not preclude Influenza A/B infections, and should not be used as the sole basis for diagnosis, treatment, or other management decisions. IfInfluenza A/B and RSV PCR results are negative, testing for Parainfluenza virus, Adenovirus and Metapneumovirus is routinely performed for [facility] pediatric oncology and intensive care inpatients, and isavailable on other patients by placing an add-on request. RSV PCR - Normal RSV PCR Not Detected Narrative: This assay is an FDA-cleared, in vitro diagnostic nucleic acid amplification test for the detectionof RSV from nasopharyngeal specimens, and has been validated for use at [facility]. Negative results do not preclude RSV infections, and should not be used as the sole basis for diagnosis, treatment, or other management decisions. If Influenza A/B and RSV PCR results are negative, testing for Parainfluenza virus, Adenovirus and Metapneumovirus is routinely performed for pediatric oncology and intensive care inpatients at [facility], and is available on other patients by [...] Abnormality Status --------- ------ Urinalysis with Reflex M...[[id number]] Abnormal Final result Extra Urine Orosco Tube[[id number]] Final result Please view results for these tests on the individual orders. TROPONIN SERIES- (INITIAL, 1 HR) Narrative: The following orders were created for panel order Troponin I Series, High Sensitivity (0, 1 HR). Procedure Abnormality Status --------- ------ Troponin I, High Sensiti...[[id number]] Abnormal Final result Troponin, High Sensitivi...[[id number]] Abnormal Final result Please view results for [...] Kahlil Fagan 10/11/2023 1:33 AM Dictation workstation: [id number] Critical Care Performed by: Aury Rouse DO [...] Q waves inthe anterior precordial leads. The NM interval is 148 ms. QRS durations 82 ms. QTc is 455 ms axis is 39 degrees. Diagnoses as of 10/12/23514 COVID-19 Acute respiratory failure with hypoxia (CMS/HCC) Acute congestive heart failure, unspecified heart failure type (CMS/HCC) Pneumonia of both lungs due to infectious organism, unspecified part of lung Aury Rouse DO 10/12/23514 [facility] Work Phone: 1([phone]) 931-704812-08-2023 History of Present illness Narrative* Mary Vargas [...] being taken. Patient does not see a psychiatric security nurse. Eye exam is current. Currently taking: No [...] bedside for hypoglycemia at night. 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 Had bilat cataract extraction Dr. Lopez. Sees Dr. Browne in [place] every year routinely.Has blurred vision with low [...] Call if BG consistently <70 or >250. [phone] Continue to check blood sugar 3 times [...] MD 10/10/23 8:04 PM documented in this [id number] Evaluation + Plan note* Assessment & Plan Note - Ayanna Albert DO - 08/25/2023 2:39 PM EDTAssociated Problem(s): CKD (chronic kidney disease) Doing well with DM HTN well controlled Sees Endocrinology. Has Type 1 DM On Statin Not on nephrotoxins [facility] Work Phone: 1(754) 724-610010-25-2023 Miscellaneous Notes* Assessment & Plan Note - Ayanna Albert DO - 08/25/2023 2:39 PM EDTAssociated Problem(s): CKD (chronic kidney disease) Doing well with DM HTN well controlled Sees Endocrinology. Has Type 1 DM On Statin Not on nephrotoxins [facility] Phone: 1(893) 771-397210-25-2023 History of Present illness Narrative* Ayanna Albert [...] Microalbuminuria Dyslipidemia Nicotine Abuse documented in this [facility] Work Phone: 1(410) 553-810004-21-2023 History of Present illness Narrative* Paty Ortega, [...] being taken. Patient does not see a psychiatric security nurse. Eye exam is current. Currently taking: No [...] at HS. PLAN: See below. 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 Had bilat cataract extraction Dr. Lopez. Sees Dr. Browne in [place] every year routinely. Nephropathy: Positive Creat: 1.09; [...] Call if BG consistently <70 or >250. [phone] Continue to check blood sugar 4 times [...] CNP 02/19/23 10:25 AM documented in this [id number] History of Present illness Narrative* Paty Ortega [...] being taken. Patient does not see a psychiatric security nurse. Eye exam is current. Currently taking: No [...] Reduce lunch and HS insulin. 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 Had bilat cataract extraction Dr. Lopez. Sees Dr. Browne in [place] every year routinely. Nephropathy: Positive Creat: 1.09; [...] Call if BG consistently <70 or >250. [phone] Continue to check blood sugar 4 times [...] CNP 10/19/22 10:25 AM documented in this [id number] History of Present illness Narrative* Paty Ortega [...] being taken. Patient does not see a psychiatric security nurse. Eye exam is current. Currently taking: No [...] Reduce lunch and HS insulin. 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 Had bilat cataract extraction Dr. Lopez. Sees Dr. Browne in [place] every year routinely. Nephropathy: Positive Creat: 1.09; [...] Call if BG consistently <70 or >250. [phone] Continue to check blood sugar 4 times [...] in this encounter. Electronically signed by Mary Vargsa MD 06/19/22 11:20 PM documented in this [id number] History of Present illness Narrative* Mary Vargas [...] being taken. Patient does not see a psychiatric security nurse. Eye exam is current. Currently taking: No [...] Reduce lunch and HS insulin. 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 Had bilat cataract extraction Dr. Lopez. Sees Dr. Browne in [place] every year routinely. Nephropathy: Positive Creat: 1.09; [...] to check stenosis. To be done in [place] office. 2. Education: Reviewed ABCs of diabetes [...] Call if BG consistently <70 or >250. [phone] Continue to check blood sugar 4 times [...] MD 02/13/22 11:20 PM documented in this [id number] History of Present illness Narrative* Paty Ortega, MUSEUM SPECIALIST - 10/13/2021 2:10 PM EST Images [...] being taken. Patient does not see a psychiatric security nurse. Eye exam is current. Currently taking: No [...] HS. PLAN: See below. 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 Exam within last 12 months: yes Date: 10/16/20. Had bilat cataract extraction Dr. Lopez. Sees Dr. Browne in [place] every year routinely. Nephropathy: Negative Creat: 1.08; [...] Call if BG consistently <70 or >250. [phone] Continue to check blood sugar 4 times [...] CNP 10/13/21 2:55 PM documented in this [id number] History of Present illness Narrative* Paty Ortega [...] being taken. Patient does not see a psychiatric security nurse. Eye exam is current. Currently taking: No [...] HS. PLAN: See below. 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 Exam within last 12 months: yes Date: 10/16/20. Had bilat cataract extraction Dr. Lopez. Sees Dr. Browne in [place] every year routinely. Nephropathy: Negative Creat: 1.08; [...] Call if BG consistently <70 or >250. [phone] Continue to check blood sugar 4 times [...] CNP 06/20/21 2:55 PM documented in this [id number] History of Present illness Narrative* Mary Vargas [...] being taken. Patient does not see a psychiatric security nurse. Eye exam is current. Currently taking: No [...] HS. PLAN: See below. 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 Exam within last 12 months: yes Date: 10/16/20. Had bilat cataract extraction Dr. Lopez. Sees Dr. Browne in [place] every year routinely. Nephropathy: Negative Creat: 1.08; [...] Call if BG consistently <70 or >250. [phone] Continue to check blood sugar 4 times [...] in this encounterOhioHealthDischarge summary Author John Brandon [facility] Note Date/Time April 03, 2025 4:11a m [facility] Medical Records Department [address] [place] [address] Emergency Department Summary 04/03/25 MR#: [id number] Acct: [id number] Name: TRENOC E Rep #:[id number] : 1945 79 From: John Ramirez PCP: [...] AdvReac Other Verified 04/03/25 00:16 (Glucocorticoids) (steroids) Pjfnkdw-Vex-Kld Reductase AdvReac Other Verified 04/03/25 00:16 Inhibitor [...] Consults: internal medicine only sees Dr. Hwang) [facility] Narrative: The patient was initially tachycardic, [...] to ICU This note was generated with [employer] dictation software. It may contain incorrectwords, spelling, [...] 76.4 H Lymph % (Auto) 13.5 L [place] % (Auto) 7.0 Eos % (Auto) 1.9 [...] possibly multifocal congestion and/or pneumonia. [facility] Discharge Plan Triage Chief Complaint: Shortness of [...] MD [Primary Care Provider] - Print Language: Citizen Of [place] What to do if you have Problems For any increased pain, shortness of breath, bleeding, nausea or vomiting, chestpain, or any unexpected problems, contact your Primary Care Provider. Call [facility] ([phone]) or report to the closest Emergency Room. Call 911 if necessary. 04/03/251 <Electronically signed by John Brandon DO> Cosigner Signature (if applicable): CC: Dr. Ryley Jeter MD ~ Signed [facility] Work Phone: Discharge summary Author Grace [facility] Note Date/Time April 10, 2025 5:09 pm [facility] Medical Records Department [address] [place] [address] Instructions for Home/Discharge Instructions 04/10/25 1527 MR#: [id number] Acct: [id number] Name: ENOC ARMANDO Rep #:[id number] : 1945 79 From: Grace Arnold MD [...] MD; Dr. Smooth Luis MD ~ Signed [facility] Work Phone: Discharge summary Author Arnulfo [facility] Note Date/Time April 19, 2025 3:48 am [facility] Medical Records Department [address] [place] [address] Emergency Department Summary 04/19/25 MR#: [id number] Acct: [id number] Name: ENOC ARMANDO Rep #:[id number] : 1945 79 From: Arnulfo Jose DO [...] but denies any formal diagnosis of COPD [facility] Medical History Non-STEMI (non-ST elevated myocardial [...] AdvReac Other Verified 04/03/25 00:16 (Glucocorticoids) (steroids) Ebbpoke-EOE-GcF Reductase AdvReac Other Verified 04/03/25 00:16 Inhibitor (Ixhluaa-Hrw-Rad Reductase Inhibitor) Family History Mother COPD (chronic [...] 82.3 H Lymph % (Auto) 10.0 L [place] % (Auto) 5.7 Eos % (Auto) 1.0 [...] Magnesium 2.3 [place] [address] H Procalcitonin 0.10 POC Glucose 437 H Radiography Diagnostic Testing: Clinical Impression(s) from Imaging Studies Chest X-Ray 04/19/25 01:00 IMPRESSION: Increased mild bilateral pleural effusions. Increased passive atelectatic airspace disease of the lower lobes. Increased pulmonary venous congestion and interstitial edema. Enlarged cardiac silhouette. Reading Location: [place] [address] Chest x-ray as interpreted by the emergency [...] Chronic anemia Disposition Disposition: Acute Care Hospital [facility] What to do if you have Problems For any increased pain, shortness of breath, bleeding, nausea or vomiting, chestpain, or any unexpected problems, contact your Primary Care Provider. Call [facility] ([phone]) or report to the closest Emergency Room. Call 911 if necessary. 04/19/25 0348 <Electronically signed by Arnulfo Jose DO> Cosigner Signature (if applicable): CC: Dr. Ryley Jeter MD ~ Signed [facility] Work Phone: Discharge summary Author Malika Fonseca [facility] Note Date/Time April 22, 2025 1:13 pm [facility] Medical Records Department [address] [place] [address] Discharge Summary 04/22/25 1301 MR#: [id number] Acct: [id number] Name: ENOC ARMANDO Rep #:[id number] : 1945 79 From: Malika Fonseca DO PCP: Dr. Ryley Jeter MD Status:ADM IN Location: [place] [address] Providers Date of Admission: 04/19/25 Primary Care [...] Referrals / Follow Up: [facility] [Provider Group] - Within 1 Month Ryley Jeter MD [Primary Care Provider] - Within 2 Weeks Disposition Disposition (needs filled in before D/C Order can be placed): Home, Self Care Charges/Coding Visit Charges Inpatient E&M: 57154 Disch Hosp >30min 04/22/25 1313 <Electronically signed by Malika Fonseca DO> Cosigner Signature (if applicable): CC: Dr. Ryley Jeter MD; Dr. Malika Fonseca DO~ Signed [facility] Work Phone: Evaluation note* Diagnosis Type [...] diabetic neuropathy (CMS/HCC) documented in this encounter [facility] Work Phone: Evaluation note* Diagnosis Type [...] heart failure (CMS/HCC) documented in this encounter [facility] Work Phone: evaluation note* Diagnosis 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- Primary Dyslipidemia Other and unspecified hyperlipidemia Congestive heart failure, unspecified HF chronicity, unspecified heart failure type (HCC) [facility] Work Phone: Evaluation note* Diagnosis NSTEMI (non-ST elevated myocardial infarction) ([facility])- Primary Acute myocardial infarction, subendocardial infarction, episode of care unspecified MADONNA (acute kidney injury) ([facility]) Acute combined systolic and diastolic congestive heart failure ([facility]) Type 1 diabetes mellitus with other specified complication ([facility]) documented in this encounter [facility] Work Phone: evaluation note* Diagnosis NSTEMI [...] diabetic neuropathy (Multi) documented in this encounter [facility] Work Phone: Evaluation note* Diagnosis Type [...] with diabetic neuropathy documented in this encounter [facility] Work Phone: Evaluation note* Diagnosis Type [...] [facility]* Diagnosis Coronary 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[place] coronary artery of [place] heart without angina pectoris- Primary documented in [...] of cerebral infarction Coronary 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[place] coronary artery of [place] heart without angina pectoris- Primary Claudication in [...] with diabetic neuropathy documented in this encounter [facility] Work Phone: Evaluation note* Diagnosis Bilateral carotid artery stenosis Occlusion and stenosis of carotid artery without mention of cerebral infarction Coronary 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s[place]mie coronary artery of [place] heart without angina pectoris- Primary NSTEMI (non-ST elevated myocardial infarction) (HCC) Acute myocardial infarction, subendocardial infarction, episode of care unspecified Hospital discharge follow-up Other follow-up examination documented [facility] encounter [facility] Diagnosis Bilateral carotid artery stenosis Occlusion and stenosis of carotid artery without mention of cerebral infarction Type 1 diabetes mellitus with diabetic neuropathy (HCC)- Primary Pure hypercholesterolemia Essential hypertension Unspecified essential hypertension [facility]* Diagnosis Onset Date Resolution Status Admit Date Acute hypoxic respiratory failure ac gui April 03, 2025 4:16am [facility] Work Phone: Evaluation note* Diagnosis Bilateral carotid artery stenosis Occlusion and stenosis of carotid artery without mention of cerebral infarction Type 1 diabetes mellitus with diabetic neuropathy (HCC) [facility]* Diagnosis Stage 3b chronic kidney disease [...] with diabetic neuropathy documented in this encounter [facility] Work Phone: History and physical note Author Dyana Hwang [facility] Note Date/Time April 03, 2025 4:42a m [facility] Medical Records Department [address] [place] [address] H&P Exam - Hospitalist 04/03/25 0402 MR#: [id number] Acct: [id number] Name: ENOC ARMANDO Rep #:[id number] : 1945 79 From: Dyana Hwang MD PCP: Dr. Ryley Jeter MD Status:ADM IN [facility] - [facility] General Date of Admission: 04/03/25 Date of Service: 04/03/25 Chief Complaint: Dyspnea. HPI Narrative The patient is an 79 y/o M w/ PMHx: CKD stage III unclear subtype per GFR trending, Chronic macrocytic anemia, HTN, HLD, Diabetes mellitus type II, BPH with obstructive pathology, Tobacco use who presents to the [facility] ED on 04/03/2025 with history of [...] AdvReac Other Verified 04/03/25 00:16 (Glucocorticoids) (steroids) Projikw-ZHJ-EaW Reductase AdvReac Other Verified 04/03/25 00:16 Inhibitor (Yxjemti-Bqb-Fsh Reductase Inhibitor) Family History (Updated 04/03/25 @ [...] 76.4 H, Lymph % (Auto) 13.5 L, [place] % (Auto) 7.0, Eos % (Auto) 1.9, [...] possibly multifocal congestion and/or pneumonia. Reading Location: [place] [address] Chest CTA 04/03/25 02:34 IMPRESSION: Mild bilateral pleural effusions. Passive atelectatic airspace disease/airspace consolidations of the lower lobes. Bilateral chronic perihilar interstitial pulmonary thickening with associated mild multifocal ground-glass densities, possibly superimposed pneumonia. Mild diffuse spondylosis. No CT evidence of pulmonary embolus or aortic dissection. Reading Location: [place] [address] Assessment & Plan Assessment/Plan (1) Acute hypoxic respiratory failure: PLAN: Plan The patient is an 79 y/o M w/ PMHx: CKD stage III unclear subtype per GFR trending, Chronic macrocytic anemia, HTN, HLD, Diabetes mellitus type II, BPH with obstructive pathology, Tobacco use who presents to the [facility] ED on 04/03/2025 with history of [...] any pulmonary embolus or aortic dissection, initial [id number] with repeat delta troponin 76. Will maintain [...] 16 minutes. Charges/Coding Visit Charges Inpatient E&M: 78126 Init Hosp L3 Procedures Hospitalists Procedures: 58694 Advncd Care Plan 30 Min 04/03/25 0442 <Electronically signed by Dyana Hwang MD> Cosigner Signature (if applicable): CC: Dr. Dyana Hwang MD; Dr. Ryley Jeter MD~ Signed [facility] Work Phone: History of Present illness Narrative* At least a 5 yr HX of LBP (previous HX of sciatica). No recent film studies have been done. He willbe a low fall risk. The patient will continue his therapy at [place]. Physical findings include limited trunk ROM with discomfort. Continue with trunk mech trng, STW (needling), and core stability/ROM exercises. * Clinical Presentation: Stable and/or uncomplicated characteristics. * Level of Complexity: low * Problem List: activity limitations, ADLs/IADLs/self care skills, decreased functional level, decreased knowledge of HEP, decreased knowledge of precautions, fall risk, gait/locomotion, pain, range ofmotion/joint mobility and strength. [facility] Work Phone: History of Present illness NarrativePatient identified by name and date of . Patient demonstrated good understanding of exercises and stretching with cues to complete after instruction. He presented with palpable tension in gluts and QL and paraspinals that responded well to STW.[facility] [place] Work Phone: History of Present illness Narrative* [...] with relief noted d/t tightness in LB. [facility] [place] Work Phone: History of Present illness Narrative* Tightness along the ITB and QL continues. * Palpable spams in both regions with with STW. * Fair trunk flexibility with SKTC. [facility] [place] Work Phone: History of Present illness NarrativePatient identified by name and date of . Patient was able to progress with several exercises this date with addition of teri disc and focus on maintain upright posture. He presented with increased muscle tension in IT band and QL this date.[facility] Work Phone: History of Present illness NarrativePatient identified by name and date of . Added IT band stretch this date and instructed for HEP due to palpable tension. Reviewed importance of HEP even if he feels sore to increased with ROM and decrease with muscle tension, he verbalized good understanding. Patient continues to present with palpable muscle tension/restrictions in his piriforms.[facility] [place] Work Phone: History of Present illness NarrativePatient identified by name and date of . Added IT band stretch this date and instructed for HEP due to palpable tension. Reviewed importance of HEP even if he feels sore to increased with ROM and decrease with muscle tension, he verbalized good understanding. Patient continues to present with palpable muscle tension/restrictions in his piriforms.[facility] Work Phone: History of Present illness [...] and possible inclusion of trigger point dry needling.[facility] Work Phone: History of Present illness [...] not covering a TENS unit for the patient.[facility] Work Phone: reason for referral (narrative)* Consultation (Routine) - Authorized Specialty Diagnoses / Procedures Referred By Contac t Referred To Contact Nephrology Diagnoses Stage 3b chronic kidney disease (CMS/HCC) Procedures Follow Up In Nephrology Ayanna Albert DO [address] [place] [address] Referral ID Status Reason Start Date Expiration Date V isits Requested Visits Authorized [id number] Authorized 08/25/2023 08/24/2024 1 1 [facility] Work Phone: Reason for referral (narrative)* Consultation (Routine) - Authorized Specialty Diagnoses / Procedures Referred By Contzac t Referred To Contact Nephrology Diagnoses Stage 3b chronic kidney disease (Multi) Procedures Follow Up In Nephrology Maricruz Albert, FOOD PROCESSING CHEMIST-MUSEUM SPECIALIST, DNP [address] [place] [address] Referral ID Status Reason Start Date Expiration Date V isits Requested Visits Authorized [id number] Authorized 02/24/2024 02/23/2025 1 1 [facility] Work Phone: Reason for referral (narrative)No reason for referral information availableWCommunity Memorial Hospital Work Phone: Reason for visit Narrative* Initial Evaluation . lumbar DDD. * Referred by: Yuki [facility] Work Phone: Reason for visit Narrative* Auth/Cert Specialty Diagnoses / Procedures Referred By Jimy stacy Referred To Contact Diagnoses NSTEMI (non-ST elevated myocardial infarction) (HCC) NSTEMI Referral ID Status Reason Start Date Expiration Date Visits Re quested Visits Authorized [id number] 1 1 [facility] Narrative* Auth/Cert (Routine) Specialty Diagnoses / Procedures Referred By Jimy stacy Referred To Contact Diagnoses Cardiovascular stress test abnormal Fatigue, unspecified type SOB (shortness of breath) Cardiovascular stress test abnormal [R94.39] Fatigue, unspecified type [R53.83] SOB (shortness of breath) [R06.02] Procedures Left Heart Cath Referral ID Status Reason Start Date Expiration Date Visits Re quested Visits Authorized [id number] 1 1 [facility] Instructions * Patient Instructions - Alexandra [...] Documents on File Type Date Recorded Patient Last Dipper Expl anation Advance Directives and Living Will Documents on File Type Date Recorded Patient Last Dipper Expl anation Advance Directives and Livin g Will 10/18/2020 1:33 PM Documents on File Type Date Recorded Patient Last Dipper Expl anation Advance Directives and Livin g Will 10/18/2020 1:33 PM Documents on File Type Date Recorded Patient Last Dipper Expl anation Advance Directives and Livin g Will 02/21/2021 3:38 PM Documents on File Type Date Recorded Patient Last Dipper Expl anation Advance Directives and Livin g Will 02/21/2021 3:38 PM Latest Code Status on File Code Status Date Activated Date Inactivated Comments Full Code 10/11/2023 5:02 AM Question Answer Comments Plan of Care: Code Status Discussion Completed Decision Maker: Patient Advance Directive Response Recorded Date/ Time Living Will Yes August 05 7:59am Power of Data Center Project Manager Yes August 05 7:59am Latest Code Status [...] Documents on File Type Date Recorded Patient Last Dipper Expl anation Advance Directives and Livin g [...] Documents on File Type Date Recorded Patient Last Dipper Expl anation Advance Directives and Livin g [...] Do you have a Healthcare Power of Data Center Project Manager? No April 03, 2025 5:17am Advance Directive Response Recorded Date/ Time Do you have a Healthcare Power of Data Center Project Manager? No April 03, 2025 5:17am Do you have a Healthcare Power of Data Center Project Manager? Yes April 19, 2025 12:03am Advance Directive Response Recorded Date/ Time Do you have a Healthcare Power of Data Center Project Manager? No April 03, 2025 5:17am Do you have a Healthcare Power of Data Center Project Manager? Yes April 19, 2025 4:03am Name of Medical Power of Data Center Project Manager Alice - April 19, 2025 4:03am Advance Directive Response Recorded Date/ Time Do you have a Healthcare Power of Data Center Project Manager? No April 03, 2025 5:17am Do you have a Healthcare Power of Data Center Project Manager? Yes April 19, 2025 4:03am Name of Medical Power of Data Center Project Manager Alice - April 19, 2025 4:03am Do you have a Healthcare Power of Data Center Project Manager? Yes May 05, 2025 7:44pm Name of Medical Power of Data Center Project Manager TOÑITO, May 05, 2025 7:44pm Advance Directive Response Recorded Date/ Time Do you have a Healthcare Power of Data Center Project Manager? No April 03, 2025 5:17am Do you have a Healthcare Power of Data Center Project Manager? Yes April 19, 2025 4:03am Name of Medical Power of Data Center Project Manager Alice - April 19, 2025 4:03am Do you have a Healthcare Power of Data Center Project Manager? Yes May 05, 2025 10:55pm Name of Medical Power of Data Center Project Manager TOÑITO, May 05, 2025 10:55pm History of Present Illness * Keeley Patton, MUSEUM SPECIALIST - 11/11/2018 8:11 AM EST Formatting of this note may be different from the original. Patient ID: Enoc Armando is a 72 y.o. male Subjective: HPI: Enoc Armando presents for follow-up of Type 1 diabetes The initial diagnosis of diabetes was [id number] years ago in 1994. Disease course has [...] being taken. Patient does not see a psychiatric security nurse. Eye exam is current. Patient with a [...] blood sugar though. PLAN: CPM. 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 Exam within last 12 months: yes Date: 08/2018 . Had bilat cataract extraction Dr. Lopez. Sees Dr. Browne in [place] every year routinely. Nephropathy: Negative Creat: 1.2, [...] Call if BG consistently <70 or >250. [phone] Continue to check blood sugar 4 times [...] being taken. He does not see a psychiatric security nurse.Eye exam is current (Jun 16). 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 Exam within last 12 months: yes Date: [...] Last CBC-WBC8.2/ Hgb- 14.6/ Hct- 44.1/ Plt [id number] Problem List Items Addressed This Visit Endocrine [...] diabetes The initial diagnosis of diabetes was [id number] years ago in 1994. Disease course has [...] being taken. Patient does not see a psychiatric security nurse. Eye exam is current. Currently taking: No [...] the morning. 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 Exam within last 12 months: yes Date: 08/2018- patient due next month for updated exam Had bilat cataract extraction Dr. Lopez. Sees Dr. Browne in [place] every year routinely. Nephropathy: Negative Creat: 1.0, [...] to bedtime appear to be typically less [id number] and usually less than 180. He was [...] Call if BG consistently <70 or >250. [phone] Continue to check blood sugar 4 times [...] diabetes The initial diagnosis of diabetes was [id number] years ago in 1994. Disease course has [...] being taken. Patient does not see a psychiatric security nurse. Eye exam is current. Currently taking: No [...] DAY FOR INSULIN INJECTION pen needle, diabetic ([employer] Pen Needle) 32 gauge x 5/32 [...] at HS. 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 Exam within last 12 months: yes Date: 08/2018- patient due next month for updated exam Had bilat cataract extraction Dr. Lopez. Sees Dr. Browne in [place] every year routinely. Nephropathy: Negative Creat: 1.08; [...] Call if BG consistently <70 or >250. [phone] Continue to check blood sugar 4 times [...] being taken. Patient does not see a psychiatric security nurse. Eye exam is current. Currently taking: No [...] <150 atHS. 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 Exam within last 12 months: yes Date: 09/2019- patient due September 2020for updated exam Had bilat cataract extraction Dr. Lopez. Sees Dr. Browne in [place] every yearroutinely. Nephropathy: Negative Creat: 1.01; eGFR: [...] Call if BG consistently <70 or >250. [phone] Continue to check blood sugar 4 times [...] being taken. Patient does not see a psychiatric security nurse. Eye exam is current. Currently taking: No oral hypoglycemic medications Humalog insulin: 10 units at breakfast; 10 units at lunch; 14-15 units at supper Lantus insulin: 18 units at bedtime Outpatient Medications Marked as Taking for the 10/18/20 encounter (Office Visit) with Paty Ortega MUSEUM SPECIALIST: amLODIPine (NORVASC) 10 MG tablet, Take [...] <150 atHS. 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 Exam within last 12 months: yes Date: 10/16/20. Had bilat cataract extraction Dr. Lopez. Sees Dr. Browne in [place] every year routinely. Nephropathy: Negative Creat: 1.01; [...] Call if BG consistently <70 or >250. [phone] Continue to check blood sugar 4 times [...] diabetes The initial diagnosis of diabetes was [id number] years ago in 1994. Disease course has [...] being taken. Patient does not see a psychiatric security nurse. Eye exam is current. Currently taking: No [...] same dose of 18 unitsnightly. 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 Exam within last 12 months: yes Date: 08/2018 . Had bilat cataract extraction Dr. Lopez. Sees Dr. Browne in [place] every year routinely. Nephropathy: Negative Creat: 1.0, [...] Call if BG consistently <70 or >250. [phone] Continue to check blood sugar 4 times [...] Ultrasound doppler carotid Mary Vargas MD [address] [place] [address] Status Reason Specialty Diagnoses / Procedures Referre d By Contact Referred To Contact Closed Cardiology Diagnoses Bilateral carotid artery stenosis Procedures Ultrasound doppler carotid Mary Vargas MD [address] [place] [address] Bannertj Barrera [address] [facility] [place] [address] Specialty Diagnoses / Procedures Referred By Contac t Referred To Contact Urology Diagnoses Elevated PSA Paty Ortega, MUSEUM SPECIALIST [address] [place] [address] Alvaro Gutierrez MD [address] [place] [phone] Referral ID Status Reason Start Date Expiration Date Visits Requested Visits Authorized [id number] Pending Review Specialty Services Required/Pat ient's Best Interest 06/19/2022 06/19/2023 1 1 Specialty Diagnoses / Procedures Referred By Contac t Referred To Contact Cardiology Diagnoses Bilateral carotid artery stenosis Procedures Ultrasound doppler carotid Paty Ortega CNP [address] [place] [address] Referral ID Status Reason Start Date Expiration Date V isits Requested Visits Authorized [id number] Authorized 10/19/2022 10/19/2023 1 1 Specialty Diagnoses / Procedures Referred By Contac t Referred To Contact Radiology Diagnoses Congestive heart failure, unspecified HF chronicity, unspecified heart failure type (HCC) 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 Procedures NM Myocardial Perfusion Multiple SPECT Day, Woo Larsen MD [address] [place] [address] Referral ID Status Reason Start Date Expiration Date V isits Requested Visits Authorized [id number] New Request 10/21/2023 10/20/2024 4 4 Chief [...] section and content) DATE CREATED AUTHOR 04/21/2018 [facility] DATE CREATED AUTHOR AUTHOR'S ORGANIZ ATION 07/05/2019 [facility] DATE CREATED AUTHOR AUTHOR'S ORGANIZ ATION 08/04/2023 [facility] DATE CREATED AUTHOR AUTHOR'S ORGANIZ ATION 08/06/2023 [facility] DATE CREATED AUTHOR AUTHOR'S ORGANIZ ATION 10/13/2023 [facility] [place] DATE CREATED AUTHOR AUTHOR'S ORGANIZ ATION 11/12/[address] [facility] DATE CREATED AUTHOR AUTHOR'S ORGANIZ ATION 03/13/2025 [facility] DATE CREATED AUTHOR AUTHOR'S ORGANIZ ATION 04/14/2025 [facility] DATE CREATED AUTHOR AUTHOR'S ORGANIZ ATION 04/28/2025 [facility] DATE CREATED AUTHOR AUTHOR'S ORGANIZ ATION 04/29/2025 [facility] DATE CREATED AUTHOR AUTHOR'S ORGANIZ ATION 05/03/2025 [facility] DATE CREATED AUTHOR AUTHOR'S ORGANIZ ATION 05/10/2025 [facility] Reason for Visit (unrecogniz ed section and content) Reason Comments Diabetes Mellitus Reason Onset Date Comments Medication Refill 02/18/2021 Reason Comments Diabetes Mellitus Status Reason Specialty Diagnoses / Procedures Referre d By Contact Referred To Contact Closed Cardiology Diagnoses Bilateral carotid artery stenosis Procedures Ultrasound doppler carotid Mary Vargas MD [address] [place] [address] [facility] [address] [facility] [place] [address] Reason Onset Date Comments Medication Refill 10/08/2021 [...] No coded services entered Praful Maloney MD [address] [place] [address] [phone] Referral ID Status Reason Start Date Expiration Date Visits Re quested Visits Authorized [id number] 1 1 Reason Comments Initial Visit (Intake) SOBOE Specialty Diagnoses / Procedures Referred By Contac t Referred To Contact Cardiology Diagnoses Congestive heart failure, unspecified HF chronicity, unspecified heart failure type ([facility]) Mary Vargas MD [address] [place] [id number] [place] [address] Referral ID Status Reason Start Date Expiration Date Visits Re quested Visits Authorized [id number] Closed 10/19/2023 10/18/2024 1 1 Reason Comments Respiratory Distress Pt comes in for dif ficulty breathing. Pt states that he was dx with a viral lung infection 1 wk ago and placed on a steroid. Pt had covid 1 month ago and was admitted for 1 wk at this facility. 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 EMS reports an O2 level in [...] carotid artery stenosis Sandi Phan PA-C [address] [place] [address] Phone: tel: fax: [address] [address] Phone: tel: Referral ID Status Reason Start Date Expiration Date V isits Requested Visits Authorized [id number] Pending Review 11/07/2024 11/07/2025 1 1 Reason [...] Ayanna Albert DO [address] [place] [address] Phone: tel: fax: Referral ID Status Reason Start Date Expiration Date V isits Requested Visits Authorized [id number] Authorized 08/29/2024 08/29/2025 1 1 Reason Comments Shortness of Breath Abnormal Lab BNP Reason Comments Diabetes Mellitus Diabetic Eye Exam du e on 10/14/2021 Reason Onset Date Comments Results 03/27/2025 Lab Reason Onset Date Comments Medication Refill 04/16/2025 Reason Comments Follow-up [facility] Teams (unrecognized sec tion and content) Suture Polisher Relationship Specialty Start Date End Date Nancy Mirza MD PCP - General Family Medicine 01/09/16 Suture Polisher Relationship Specialty Start Date End Date Nancy Mirza MD PCP - General Family Medicine 01/09/16 Suture Polisher Relationship Specialty Start Date End Date Nancy Mirza MD PCP - General Family Medicine 01/09/16 Suture Polisher Relationship Specialty Start Date End Date Nancy Mirza MD PCP - General Family Medicine 01/09/16 Suture Polisher Relationship Specialty Start Date End Date Nancy Mirza MD PCP - General Family Medicine 01/09/16 Suture Polisher Relationship Specialty Start Date End Date Nancy Mirza MD PCP - General Family Medicine 01/09/16 Suture Polisher Relationship Specialty Start Date End Date Nancy Mirza MD PCP - General Family Medicine 01/09/16 Suture Polisher Relationship Specialty Start Date End Date Nancy Mirza MD [address] [place] [address] PCP - General Family Medicine 01/09/16 Suture Polisher Relationship Specialty Start Date End Date Nancy Mirza MD [address] [place] [address] PCP - General Family Medicine 01/09/16 Suture Polisher Relationship Specialty Start Date End Date Nancy Mirza MD [address] [place] [address] PCP - General 11/01/18 Suture Polisher Relationship Specialty Start Date End Date Ryley Jeter MD [address] [place] [address] PCP - General Family Medicine 10/08/23 Suture Polisher Relationship Specialty Start Date End Date Nancy Mirza MD [address] [place] [address] PCP - General 11/01/18 Suture Polisher Relationship Specialty Start Date End Date Ryley Jeter MD [address] [place] [address] PCP - General Family Medicine 10/08/23 Suture Polisher Relationship Specialty Start Date End Date Ryley Jeter MD [address] [place] [address] PCP - General Family Medicine 10/08/23 Team Status: Active Member Role Status Lizzette Jeter MD Primary Care Provider Active Team Status: Inactive Member Role Status Lizzette Jeter MD Primary Care Provider Active Jana Ferguson AUTOMATIC SPOOLER OPERATOR, AUTOMATIC SPOOLER OPERATOR-C Attending Provider Active Team Status: Inactive Member Role Status Lizzette Jeter MD Primary Care Provide r, Attending Provider, Referring Provider Active Suture Polisher Relationship Specialty Start Date End Date Aynana Albert DO [address] [place] [address] PCP - [employer] Medicare Advantage PCP 11/01/23 Generic Provider, No Assigned Pcp[facility] [address] [place] [address] PCP - General Internal Medicine 11/26/23 Suture Polisher Relationship Specialty Start Date End Date Ayanna Albert DO [address] [place] [id number] PCP - [employer] Medicare Advantage PCP 11/01/23 Gerri Amos MD [address] [place] [address] PCP - General Internal Medicine 11/26/23 Suture Polisher Relationship Specialty Start Date End Date Ryley Jeter MD [address] [place] [address] PCP - General Family Medicine 10/08/23 Suture Polisher Relationship Specialty Start Date End Date Nancy Mirza MD [address] [place] [address] PCP - General 11/01/18 11/25/23 Suture Polisher Relationship Specialty Start Date End Date Ryley Jeter MD [address] [place], [place] [id number] PCP - General Family Medicine 10/08/23 Suture Polisher Relationship Specialty Start Date End Date Ryley Jeter MD [address] [place], [place] [id number] PCP - General Family Medicine 10/08/23 Suture Polisher Relationship Specialty Start Date End Date Ryley Jeter MD [address] [place], [place] [id number] PCP - General Family Medicine 10/08/23 Suture Polisher Relationship Specialty Start Date End Date Ryley Jeter MD [address] [place] [address] PCP - General Family Medicine 10/08/23 Suture Polisher Relationship Specialty Start Date End Date Ayanna Albert DO [address] [place] [address] PCP - [employer] Medicare Advantage PCP 11/01/23 Generic Provider, No Assigned PcpMD [address] [place] [address] PCP - General Internal Medicine 11/26/23 Suture Polisher Relationship Specialty Start Date End Date Ryley Jeter MD [address] [place], [place] [address] PCP - General Family Medicine 10/08/23 Suture Polisher Relationship Specialty Start Date End Date Ayanna Albert DO [address] [place] [id number] PCP - [employer] Medicare Advantage PCP 11/01/23 Generic Provider, No Assigned PcpMD [address] [place] [address] PCP - General Internal Medicine 11/26/23 Suture Polisher Relationship Specialty Start Date End Date Ryley Jeter MD [address] [place] [address] PCP - General Family Medicine 10/08/23 Suture Polisher Relationship Specialty Start Date End Date Ryley Jteer MD [address] [place], [place] [address] PCP - General Family Medicine 10/08/23 Suture Polisher Relationship Specialty Start Date End Date Ryley Jeter MD [address] [place] [address] PCP - General Family Medicine 10/08/23 Suture Polisher Relationship Specialty Start Date End Date Ryley Jeter MD [address] [place], [place] [address] PCP - General Family Medicine 10/08/23 Suture Polisher Relationship Specialty Start Date End Date Ryley Jeter MD [address] [place] [address] PCP - General Family Medicine 10/08/23 Suture Polisher Relationship Specialty Start Date End Date Ryley Jeter MD [address] [place], [place] [address] PCP - General Family Medicine 10/08/23 Suture Polisher Relationship Specialty Start Date End Date Ryley Jeter MD [address] [place] [address] PCP - General Family Medicine 10/08/23 Suture Polisher Relationship Specialty Start Date End Date Ryley Jeter MD [address] [place], [place] [address] PCP - General Family Medicine 10/08/23 Kristy Parker MD [address] [place] [address] Consulting Physician Vascular Surgery 11/09/24 Suture Polisher Relationship Specialty Start Date End Date Ryley Jeter MD [address] [place], [place] [address] PCP - General Family Medicine 10/08/23 Kristy Parker MD [address] [place] [address] Consulting Physician Vascular Surgery 11/09/24 Suture Polisher Relationship Specialty Start Date End Date Ryley Jeter MD [address] [place], [place] [address] PCP - General Family Medicine 10/08/23 Kristy Parker MD [address] [place] [address] Consulting Physician Vascular Surgery 11/09/24 Suture Polisher Relationship Specialty Start Date End Date Ryley Jeter MD [address] [place], [place] [address] PCP - General Family Medicine 10/08/23 Kristy Parker MD [address] [place] [address] Consulting Physician Vascular Surgery 11/09/24 Suture Polisher Relationship Specialty Start Date End Date Ryley Jeter MD [address] [place], [place] [address] PCP - General Family Medicine 10/08/23 Kristy Parker MD [address] [place] [address] Consulting Physician Vascular Surgery 11/09/24 Team Status: Inactive Member Role Status Dates Ryley Jeter MD Primary Care Provider Active St art: February 06, 2025 End: February 06, 2025 Dr. Kerwin Tamayo MD Attending Provider Activ e Start: February 06, 2025 End: February 06, 2025 Suture Polisher Relationship Specialty Start Date End Date Ryley Jeter MD [address] [place], [place] [address] PCP - General Family Medicine 10/08/23 Kristy Parker MD [address] [facility] [place] [address] Consulting Physician Vascular Surgery 11/09/24 Suture Polisher Relationship Specialty Start Date End Date Ryley Jeter MD [address] [place], [place] [address] PCP - General Family Medicine 10/08/23 Kristy Parker MD [address] [place] [address] Consulting Physician Vascular Surgery 11/09/24 Suture Polisher Relationship Specialty Start Date End Date Ryley Jeter MD [address] [place], [place] [address] PCP - General Family Medicine 10/08/23 Kristy Parker MD [address] [place] [address] Consulting Physician Vascular Surgery 11/09/24 Suture Polisher Relationship Specialty Start Date End Date Generic Provider, No Assigned PcpMD PCP - General Internal Medicine 11/26/23 Suture Polisher Relationship Specialty Start Date End Date Ryley Jeter MD [address] [place], [place] [address] PCP - General Family Medicine 10/08/23 Kristy Parker MD [address] [place] [address] Consulting Physician Vascular Surgery 11/09/24 Suture Polisher Relationship Specialty Start Date End Date Ryley Jeter MD [address] [place], [place] [phone] PCP - General Family Medicine 10/08/23 Kristy Parker MD [address] [place] [address] Consulting Physician Vascular Surgery 11/09/24 Team Status: [...] Provider Active Start: April 05, 2025 Dr. Harinedr Gill MD Other Provider Active Start: April [...] Provider Active St art: April 22, 2025 Suture Polisher Relationship Specialty Start Date End Date Generic [...] Sta rt: April 04, 2025 Dr. Adarsh Mosquear MD Other Provider Active Star t: April [...] Sta rt: April 05, 2025 Dr. Terry Daivs MD Other Provider Active St art: April [...] Active Sta rt: April 05, 2025 Dr. dAarsh Mosquera MD Other Provider [...] Active Star t: April 07, 2025 Dr. Dotne Nolen MD Other Provider Active Sta rt: [...] Active Start: April 20, 2025 Dr. Denisha Thompsno MD Other Provider Active Start: April 20, [...] Active Star t: May 07, 2025 Dr. aCrlita Raygoza , Other Provider Active Start : [...] dose 0203 (Given - Provider: Scarlet Ashford, HEARING AID REPAIRER - Comment: albuterol) amLODIPine (Norvasc) tablet 10 [...] feeding tube. 0954 (Given - Provider: Geni aWll RN) 0829 (Given - Provider: Moody Gorman, [...] 0700 (Not Given - Provider: Amber L Psacal, HEARING AID REPAIRER - Reason: Medication not available)191 (Given - Provider: Malika Hemphill, HEARING AID REPAIRER) 06 (Given - Provider: Delmar Mcgowan, HEARING AID REPAIRER)1900 (Due) budesonide (Pulmicort) 0.5 mg/2 mL nebulizer solution 0.5 mg (CANCELED) 0.5 mg, nebulization, 2 times daily RT, First dose on Wed10/11/23 at 0600, Rinse mouth with water after use to reduce aftertaste and incidence of candidiasis. Do not swallow. 0603 (Given - Provider: Nancy Juares, HEARING AID REPAIRER) cefTRIAXone (Rocephin) 2 g IV in dextrose [...] to SQ, new order made by Dr. aBsilio. Not given intravenously, but subcutaneously) heparin (porcine) injection 5,000 Units 5,000 Units, subcutaneous, Every 8 hours, First dose (after last modification) on Wed10/12/23 at 0900 0828 (Given - Provider: Moody Gorman RN)1801 (Given - Provider: Moody Gorman, FIDEL) 0012 (Given - Provider: Amber Jacobsen, FIDEL)0900 (Not Given - Provider: Moody Gorman RN - Reason: Patient/family refused)1700 (Not Given - Provider: Moody Gomran RN - Reason: Patient/family refused) hydroCHLOROthiazide (Microzide) [...] Juares RRT)1821 (Given - Provider: Scarlet Ashford HEARING AID REPAIRER)2145 (Given - Provider: Scarlet Ashford HEARING AID REPAIRER) 0652 (Given - Provider: Amber Pascal RRT)1156 [...] 2218 (Given - Provider: Kristi Bowman RN) inhdgrmuckrt-klwxzbllgu-tsnrzaqr (Zosyn) IV 3.375 g (COMPLETED) 3.375 g, [...] Blanco Olivera, RN)0603 (Stopped - Provider: Blanco Olivear, FIDEL) cefTRIAXone (ROCEPHIN) IVPB 2 g (premix) [...] 11/27/23 at 0337, Anginal pain, may repeat [id number] x3, then notify physician. DO NOT CRUSH [...] Comment: 8 units [place] [facility] [place] isosorbide mononitrate (IMDUR) 24 [...] BE BASED ON THE PRIMARY CLINICAL RECORDS. [employer] provides no warranty or guarantee of the accuracy or completeness of information in this document.
[2025-05-13 17:59] LABS: Reflex Lactate? Y
[2025-05-13 18:02] LABS: Glucose 824 mg/dL (70-99)
--- NOTE | 2025-05-13 18:02 | PCMCONS.TICU ---
HPI Consult Data Date of Consult: 05/13/25 HPI Narrative HPI Narrative: SERENA ARMANDO, is a 79 M who presents [facility] Medical History MADONNA (acute kidney injury) HFrEF (heart failure with reduced ejection fraction) ASCVD (arteriosclerotic cardiovascular disease) CKD (chronic kidney disease) stage 3, GFR 30-59 ml/min CKD (chronic kidney disease), stage IV Non-STEMI (non-ST elevated myocardial infarction) Bradycardia Anemia LV dysfunction Chronic anemia Tobacco use COPD (chronic obstructive pulmonary disease) HLD (hyperlipidemia) HTN (hypertension) BPH (benign prostatic hyperplasia) Chronic low back pain with sciatica Diabetes mellitus, type 2 CKD (chronic kidney disease), stage III Pneumonia COVID Wears glasses Wears dentures Medical History no medical history Home Medications ?Medication ?Instructions ?Recorded ?Last Taken ?Type insulin glargine 100 unit/mL (3 15 unit subcut QPM diabetes 08/05/21 05/04/25 History mL) subcutaneous pen (Lantus Solostar U-100 Insulin) insulin lispro 100 unit/mL 0 unit subcut TID SLIDING SCALE 08/05/21 05/05/25 History subcutaneous pen tamsulosin 0.4 mg capsule (Flomax) 0.4 mg PO DAILY urination 08/05/21 05/04/25 History ezetimibe 10 mg tablet 10 mg PO DAILY cholesterol 04/06/24 05/05/25 History blood sugar diagnostic (Contour 09/12/24 Unknown History Next Test Strips) hydralazine 50 mg tablet 50 mg PO Q8H BP 04/03/25 05/05/25 History albuterol sulfate 2.5 mg/3 mL 2.5 mg (3 mL) inhalation Q2H PRN 04/22/25 05/05/25 Rx (0.083 %) solution for nebulization PRN SOB &/OR WHEEZING 30 days #180 mL albuterol sulfate 90 mcg/actuation 2 inh inhalation Q6H PRN shortness 04/22/25 05/05/25 Rx breath activated powder inhaler of breath or wheezing #1 ea (ProAir RespiClick) carvedilol 25 mg tablet 25 mg PO BIDCM blood pressure #60 04/22/25 05/05/25 Rx tabs furosemide 40 mg tablet 40 mg PO BIDLX water pill #60 tabs 04/22/25 05/05/25 Rx isosorbide mononitrate 30 mg 30 mg PO DAILY BP #30 tabs 04/22/25 05/05/25 Rx tablet,extended release 24 hr nebulizer and compressor #1 ea 04/22/25 Unknown Rx finasteride 5 mg tablet 5 mg PO DAILY prostate 05/05/25 05/05/25 History prednisone 20 mg tablet 40 mg (2 x 20 mg) PO DAILY #10 tabs 05/09/25 Unknown Rx albuterol sulfate 90 mcg/actuation 2 puff inhalation Q6H PRN PRN 05/13/25 Unknown History aerosol inhaler wheezing Allergy/AdvReac Type Severity Reaction Status Date / Time spironolactone AdvReac Intermediate Hyperkalemi Verified 04/19/25 03:10 a Corticosteroids AdvReac Other Verified 04/03/25 00:16 (Glucocorticoids) (steroids) Rarpqec-AHH-ThG Reductase AdvReac Other Verified 04/03/25 00:16 Inhibitor (Faccoxn-Pij-Awp Reductase Inhibitor) Family History Mother COPD (chronic obstructive pulmonary disease) Father CAD (coronary artery disease) Heart disease Family History no significant family his Surgical History Hx of cystoscopy Hx of colonoscopy Hx of left cataract extraction Hx of right cataract extraction Social History household members: spouse Smoking Status: Current every day smoker tobacco type: cigarettes alcohol intake: never substance use type: does not use Objective Data Objective Data Vital Signs: Vital Signs Last response Temperature 36.2 C L 05/13/25 13:36 Temperature Source Oral 05/13/25 13:36 Pulse Rate 88 05/13/25 17:32 Respiratory Rate 18 05/13/25 17:32 Respiratory Effort Short of Breath, Labored, Accessory Muscle Use 05/13/25 16:20 Respiratory Depth Deep 05/13/25 16:20 Respiratory Pattern Normal 05/13/25 16:22 Blood Pressure 166/94 H 05/13/25 17:32 Blood Pressure Mean 118 05/13/25 17:32 Blood Pressure Source Monitor 05/13/25 17:32 Blood Pressure Position Semi-Fowlers 05/13/25 17:32 Blood Pressure Location Right Arm 05/13/25 17:32 Pulse Ox 96 05/13/25 17:32 Oxygen Delivery Method Mechanical Ventilator 05/13/25 17:32 Oxygen Flow Rate (L/min) 10 05/13/25 13:30 Fraction of Inspired Oxygen (FIO2) 100 05/13/25 16:22 I&O: I&O Last 24 Hours 05/12/25 05/13/25 05/13/25 23:59 11:59 23:59 Intake Total 15.51 / 15.51 Balance 15.51 / 15.51 I&O: Total Stay 05/13/25 13:28 thru 05/13/25 17:32 Intake Total 15.51 Balance 15.51 Current Meds Ordered / Administered: Current meds ordered / Administered Generic Name Dose Route Start Last Admin Trade Name Freq PRN Reason Stop Dose Admin Chlorhexidine Gluconate 15 ml 05/13/25 22:00 Chlorhexidine 15 Ml PO BID DIDI Fentanyl Citrate 100 mcg 05/13/25 16:11 Fentanyl 100 Mcg/2 Ml Ampul IV Q2H PRN PRN Pain >/= 4/10 or CPOT>/= 3/8 Heparin Sodium (Porcine) 0 unit 05/13/25 16:00 Heparin Injection (Vial) 5,000 Unit/Ml Vial IV UD PRN dose adjustment Protocol Heparin Sodium/Dextrose 25,000 units in 250 mls @ 8 mls/hr 05/13/25 15:50 05/13/25 17:03 CONT INF 800 units/hr .[id number] DIDI 8 mls/hr Administration Protocol As Directed Propofol 1,000 mg in 100 mls @ 3.674 mls/hr 05/13/25 16:15 05/13/25 17:32 Diprivan CONT INF 20 mcg/kg/min .Q12H DIDI 7.3 mls/hr Titration Protocol 10 MCG/KG/MIN Fentanyl 100 mls @ 2.5 mls/hr 05/13/25 16:15 05/13/25 17:23 CONT INF 50 mcg/hr UD DIDI 5 mls/hr Titration Protocol 25 MCG/HR Nitroglycerin 0.4 mg 05/13/25 13:36 Nitroglycerin Sl (Ed/Img/Cath) 0.4 Mg Tablet SL Q5M PRN CARDIAC/CHEST PAIN Lab / Micro Data 05/13/25 13:47 05/13/25 Unknown Labs: Laboratory Results - last 24 hr 05/13/25 13:47: WBC 9.2, RBC 3.06 L, Hgb 8.8 L, Hct 28.1 L, MCV 91.8, MCH 28.8, MCHC 31.3 L, RDW Std Deviation 49.3 H, RDW Coeff of Humaira 14.8 H, Plt Count 268, MPV 11.9, PT 14.1, INR 1.1, APTT 26.2, D-Dimer Quant (PE/DVT) 2.18 H*, Sodium 129 L, Potassium 4.7, Chloride 93 L, Carbon Dioxide 17.4 L, Anion Gap 19 H, BUN 83 H, Creatinine 2.64 H, Estim Creat Clear Calc 19.01 L, Est GFR (MDRD) Non-Af 24 L, BUN/Creatinine Ratio 31.3 H, Glucose 824 H*, Serum Osmolality 351 H, Lactic Acid 3.3 H*, Calcium 8.6, Total Bilirubin 0.35, AST 29, ALT 38, Alkaline Phosphatase 79, Troponin T High Sens 122 H* D, [place] [address] H, Total Protein 6.0, Albumin 3.6, Globulin 2.4, Albumin/Globulin Ratio 1.5, Lipase 57 05/13/25 15:56: Phosphorus 5.4 H, Magnesium 2.7 H, Troponin T Hi Sens 2 Hr 143 H*, b-Hydroxybutyric mmol/L 0.3, Procalcitonin 0.22 H 05/13/25 16:02: POC Glucose > 500 H* Micro: Microbiology 05/13/25 13:47 Mucosa - Nose SARS-CoV-2, Influenza & RSV (PCR) - Final ABG Data ABG results: ABG 05/13/25 05/13/25 13:57 16:52 Specimen Type JUANITA ART Sample Site Not entered R Radial pH 7.26 L Bicarbonate Actual 23.1 Total CO2 25 Base Excess -4 L O2 Saturation 96 O2 % 100.0 ABG pCO2 51.7 H ABG pO2 96 Chris Test Positive VBG pH 7.38 VBG pO2 68 H VBG HCO3 22 VBG Total CO2 23 VBG O2 Sat (Calc) 93 H VBG Base Excess -3 L POC Mix VBG pCO2 Pt Tmp 37.3 L Respiration Rate 14 O2 Delivery Device Not entered ET Tube Vent Mode AC Tidal Volume 450.0 POC PEEP 8 Imaging Radiology Impression Chest X-Ray 05/13/25 13:54 IMPRESSION: Mildly worse extensive pulmonary edema. Underlying focal consolidations not excluded. Reading Location: [id number] Chest X-Ray 05/13/25 16:29 IMPRESSION: 1. Appropriate positioning of the endotracheal tube. 2. Enteric tube side port projects near the expected location of the gastroesophageal junction, consider slightly advancing. 3. Slight interval worsening of bilateral airspace disease compared to earlier same-day radiographs. Reading Location: [id number] Assessment and Plan . Assessment and plan: HPI 79 yo chronically ill male smoker w/ MMP, including DM, ASCVD, CHF w/ reduced LVSF, admitted 05/13/25 w/ dyspnea, hypoxemia, and respiratory failure requiring MV support. He was recently discharged from this facility w/ similar problems. In the ED, noted hypoxemia, HTN, distress. He required high-flow O2, NIV support, and ultimately invasive MV support. pCXR reveals diffuse infiltrates c/w pulmonary edema. Troponin elevated, ECG reveals non-specific changes. NT-p-BNP markedly elevated. Serum Na+ low, creatinine elevated - appears chronic. Also significant anemia and marked hyperglycemia. LA modestly elevated. He received nitroglycerin and loop diuretics - unclear UOP response at this time. Recent TTE noted - reduced LVSF, significant MR, dilated LA, elevated PASP. He is currently in the ICU. Sedated - appears comfortable. HD stable. MV 8-9 LPM, PIP 28, FiO2 0.7 w/ PEEP+8. Propofol, fentanyl, insulin, UFH infusing. EXAM GEN sedated, NAD VS as above HEENT CHARMAINE NECK supple COR irreg CHEST coarse ABD soft EXT minimal edema SKIN w/d NISREEN sedated ASSESSMENT/TREATMENT PLAN 1. Acute respiratory failure requiring MV support 2. Cardiogenic pulmonary edema 3. CHF w/ reduced LVSF, MR, markedly elevated NT-p-BNP 4. Advanced CKD 5. DM / hyperglycemia 6. ASCVD / CAD / elevated troponin 7. Anemia 8. Tobacco use 9. Hyponatremia 10. Modest lactic acidosis -MV support - reviewed and adjusted -sedation / analgesia -loop diuretics at high doses -ASA -IV UFH infusing -follow troponin -inhaled BD -receiving steroids - would probably stop soon -IV insulin infusing -follow serum Na+ and renal function closely -prognosis very guarded Critical Care Time: 60 minutes The entirety of this encounter was done via Telemedicine
--- NOTE | 2025-05-13 18:17 | ED.RN ---
1759: REPORT CALLED TO ICU NURSENEO. NO FURTHER QUESTIONS BY THE RECEIVING NURSE AT THIS TIME. ICU IS READY FOR THE PT.
[2025-05-13] MEDS: fentaNYL drip 100 ML 5 MCG CONT INF (19:00)
--- NOTE | 2025-05-13 19:03 | ED.RN ---
1659: PT. DISTRACTED, RE-ORIENTED, FAMILY AT BEDSIDE, PHYCOLOGICAL NEEDS MET, PT. MAKING ATTEMPTS TO PULL AT LINES. 1700: RESTRAINTS APPLIED TO PROTECT LINES AND DRAINS
[2025-05-13 19:16] LABS: Troponin T High Sens 4 HR 232 ng/L (<=22)
[2025-05-13 19:52] LABS: Glucose 822 mg/dL (70-99)
[2025-05-13 20:01] LABS: CPK Total, Creatine Kinase 90 U/L (24-195); Triglycerides 168 mg/dL
[2025-05-13] MEDS: Insulin Lispro 100 UNIT in 0.9% Normal Saline (100mL Bag) 99 ML 6.1 UNIT CONT INF (20:29)
[2025-05-13] MEDS: Chlorhexidine 15 ML PO (20:37)
[2025-05-13] MEDS: 0.9% Saline Lock 10 ML Syringe IV (20:52)
[2025-05-13 20:56] LABS: Anion Gap 17 (5-15); BUN 88 mg/dL (4-19); BUN/Creat Ratio 31.2 RATIO (10-20); Calcium,Total 8.3 mg/dL (7.6-11.0); Carbon Dioxide 19.3 mmol/L (21.0-32.0); Chloride 94 mmol/L (98-108); Estimated Creatinine Clearance 18.53 ml/min (50-250); Glucose 818 mg/dL (70-99); Potassium 4.9 mmol/L (3.3-5.1)
--- NOTE | 2025-05-13 21:10 | RAD_ITS ---
PROCEDURE: CHEST 1 VIEW (PORTABLE) 05/13/2025 REASON FOR EXAM: OG PLACEMENT TECHNIQUE: Frontal views of the chest. COMPARISON: Chest radiographs on 05/13/2025 FINDINGS: See below RAD/Chest 1 View (Portable) IMPRESSION: Interval advancement of the enteric tube, with tip and side port now projecting below the diaphragm at the expected location of the stomach. Endotracheal tube is not visualized on this exam. Airspace disease at the lung bases is again seen. Degenerative changes of the spine. Reading Location: [facility]
[2025-05-13] MEDS: Pantoprazole Sodium 40 MG in 0.9% Normal Saline (100mL MB+) 100 ML 330 MG IV (21:26)
[2025-05-13] MEDS: 0.9% Normal Saline (250mL Bag) 250 ML 15 ML IV (21:27)
[2025-05-13 22:49] LABS: Anion Gap 17 (5-15); BUN 83 mg/dL (4-19); BUN/Creat Ratio 30.9 RATIO (10-20); Calcium,Total 7.6 mg/dL (7.6-11.0); Carbon Dioxide 18.7 mmol/L (21.0-32.0); Chloride 98 mmol/L (98-108); Estimated Creatinine Clearance 19.42 ml/min (50-250); Glucose 759 mg/dL (70-99); Potassium 4.3 mmol/L (3.3-5.1)
[2025-05-13 23:24] LABS: Partial Thromboplast Time 70.1 Seconds (24.1-36.2)
[2025-05-13 23:24] LABS: Glucose 738 mg/dL (70-99)
[2025-05-14] VITALS (49 sets, daily range): BP systolic 74–171; BP diastolic 39–82; PULSE 55–82; RESP 16–24; TEMP 36.2–36.8; O2SAT 30–100; BMI 21.4
[2025-05-14 01:03] LABS: Glucose 661 mg/dL (70-99)
[2025-05-14] MEDS: Propofol 10MG/Ml 1,000 MG/100 ML Bottle 5.5 MG CONT INF ×2 (01:49→17:05)
[2025-05-14 02:58] LABS: Anion Gap 17 (5-15); BUN 90 mg/dL (4-19); BUN/Creat Ratio 31.1 RATIO (10-20); Calcium,Total 8.3 mg/dL (7.6-11.0); Carbon Dioxide 20.0 mmol/L (21.0-32.0); Chloride 98 mmol/L (98-108); Estimated Creatinine Clearance 18.21 ml/min (50-250); Glucose 583 mg/dL (70-99); Potassium 3.8 mmol/L (3.3-5.1)
[2025-05-14] MEDS: Norepinephrine 8 MG in 0.9% Normal Saline (250mL Bag) 242 ML 9.4 MG CONT INF ×2 (03:20→14:28)
[2025-05-14] MEDS: TITRATION PARAMETER CHANGE 1 EACH IV (03:56)
--- NOTE | 2025-05-14 04:18 | RAD_ITS ---
PROCEDURE: CHEST 1 VIEW (PORTABLE) 05/14/2025 REASON FOR EXAM: ARF TECHNIQUE: Frontal view of the chest. COMPARISON: 05/13/2025 FINDINGS: ETT tip is just above the carinal angle, consider 4 cm retraction. Enteric tube tip in stomach lumen. Normal heart size. Small left effusion. Oida-wmgdaex-dwlz-right airspace disease, mid and lower lung regions, small interval improvement. No pneumothorax. RAD/Chest 1 View (Portable) IMPRESSION: Small interval improvement in pnuw-lpkyxsb-nqvx-right mid/lower lung zone airsp izzy disease, consistent with asymmetric edema or pneumonia such as aspiration pneumonia. Recommend correlation and follow up im aging. Reading Location: [id number]
[2025-05-14 05:35] LABS: Allen Test Positive; Base Excess -2 mmol/L (-2 to +2); FI02 24.0; PEEP 8; PO2 101 mmHG (75-100); RR 24; SITE R Radial; SO2 99 % (95-99)
[2025-05-14 06:25] LABS: Partial Thromboplast Time 74.7 Seconds (24.1-36.2)
[2025-05-14 06:41] LABS: Hematocrit 26.8 % (40-54); Hemoglobin 8.8 g/dL (13.0-16.5); Mean Corp Hgb Conc 32.8 g/dL (32-36); Mean Corpuscular Volume 90.2 fL (80-94); Mean Platelet Vol. 11.7 fl (6.2-12.0); POSITIVE DIFFERENTIAL YES; Platelet Count 222 K/mm3 (150-450); RBC Distribution Width CV 14.5 % (11.6-14.6); RBC Distribution Width SD 46.8 fl (35.1-43.9); Red Blood Count 2.97 M/mm3 (4.6-6.2); White Blood Count 7.2 K/mm3 (4.4-11.0)
[2025-05-14 06:42] LABS: Immature Granulocytes Count 0.020 X10^3/uL (0.0-0.0)
--- NOTE | 2025-05-14 06:44 | PCM.PN.INT ---
Assessment & Plan Assessment/Plan (1) Acute on chronic HFrEF (heart failure with reduced ejection fraction): (2) Acute hypoxic respiratory failure: PLAN: Plan RECOMMENDATIONS: 1. Continue assist-control mode mechanical ventilation. Continue to wean FiO2 and PEEP as tolerated. 2. Obtain follow-up ABG and chest x-ray tomorrow morning. 3. Continue propofol and fentanyl for sedation. 4. Continue scheduled bronchodilators. 5. Okay to discontinue corticosteroids, given complications with hyperglycemia. 6. Continue ongoing attempts at diuresis, as tolerated by hemodynamics and renal function. 7. Continue appropriate ICU prophylaxis. 8. Plan for initiation of spontaneous awakening and breathing trials tomorrow. IMPRESSIONS: 1. Acute hypoxemic respiratory failure Clinical concern for multifactorial etiology with possible COPD exacerbation along with CHF exacerbation contributing. However, I do feel that is far more likely that the patient's main issue at presentation was decompensated heart failure, given his interval improvement in his oxygenation status with aggressive diuresis. The patient has an extensive tobacco abuse history, but has never been formally diagnosed with COPD. For now, the patient will be continued on bronchodilator therapy along with empiric antibiotics and diuretics, as tolerated by hemodynamics and renal function. I am going to discontinue his corticosteroids, given the issues encountered with persistent hyperglycemia. Cardiology consultation is pending. Ideally, the patient will need outpatient follow-up in the pulmonary medicine office after discharge so that baseline PFTs can be obtained. 2. Chronic tobacco dependency Tobacco cessation is strongly advised. Recommend outpatient pulmonary follow-up and PFTs after discharge. 3. Elevated troponin likely secondary to demand ischemia in the setting of #1 Continue current supportive care. Cardiology consultation is currently pending. 4. Hyperglycemia Most likely secondary to HHS. Plan to obtain repeat beta hydroxybutyrate level. The patient will be continued on insulin infusion. 5. History of chronic kidney disease/anemia/hypertension/hyperlipidemia/diabetes mellitus/coronary artery disease Complicates care, management, recovery and prognosis. Continue home medications as indicated. TIME: 35 minutes of critical care time, independent of procedures, was spent addressing the patient's acute hypoxemic respiratory failure, history of tobacco dependency, elevated troponin, hyperglycemia, review of all data and collaboration with the care team. Subjective Subjective The patient was seen and examined at the bedside this morning. Events from the last 24 hours have been reviewed. The patient is currently afebrile, hemodynamically stable and maintaining appropriate oxygen saturations on assist-control mode mechanical ventilation with an FiO2 requirement of 21% and PEEP of 5. The patient is currently documented to be overall net -700 mL for the hospitalization. White blood cell count is normal. Hemoglobin and platelet count are stable. ABG this morning was notable for a pH of 7.57 with a pCO2 of 23 and pO2 of 101. Chemistry profile was notable for a bicarbonate of 21, anion gap of 19, BUN of 89 creatinine of 2.9. Glucose is elevated at 463. BNP is elevated at 66,010. Procalcitonin was elevated at 9.2. Objective Data Objective Data The patient's most recent lab work, culture data and imaging studies have all been personally reviewed. Surface echocardiogram from April 2025 demonstrated mild to distal hypokinesis of the LV with an ejection fraction of 40% and stage I diastolic dysfunction. Moderate mitral valve insufficiency was noted. Right ventricular systolic pressure was estimated to be 41 mmHg. Blood, urine and sputum cultures are pending. Vital Signs: Vital Signs Temp Pulse Resp BP Pulse Ox O2 Del Method O2 Flow Rate 98 F 57 L 24 H 119/47 L 99 Mechanical Ventilator 10 05/14/25 04:00 05/14/25 05:13 05/14/25 05:13 05/14/25 06:09 05/14/25 05:13 05/14/25 05:00 05/13/25 13:30 FiO2 24 05/14/25 05:13 Oxygen Flow Rate (L/min) 10 Oxygen Delivery Method Mechanical Ventilator Weight: 141 lb 1.533 oz Body Mass Index (BMI) 21.4 Intake & Output: Intake and Output for Last 24 Hours 05/12/25 05/13/25 05/14/25 23:59 23:59 23:59 Intake Total 236.86 / 298.84 206.64 / 206.64 Output Total 950 / 950 400 / 400 Balance -713.14 / -651.16 -193.36 / -193.36 Lab / Micro Data Attestation: I reviewed the patient's lab results. 05/14/25 05:50 05/14/25 09:20 Labs: Laboratory Results - last 24 hr 05/13/25 13:47: WBC 9.2, RBC 3.06 L, Hgb 8.8 L, Hct 28.1 L, MCV 91.8, MCH 28.8, MCHC 31.3 L, RDW Std Deviation 49.3 H, RDW Coeff of Humaira 14.8 H, Plt Count 268, MPV 11.9, PT 14.1, INR 1.1, APTT 26.2, D-Dimer Quant (PE/DVT) 2.18 H*, Sodium 129 L, Potassium 4.7, Chloride 93 L, Carbon Dioxide 17.4 L, Anion Gap 19 H, BUN 83 H, Creatinine 2.64 H, Estim Creat Clear Calc 19.01 L, Est GFR (MDRD) Non-Af 24 L, BUN/Creatinine Ratio 31.3 H, Glucose 824 H*, Serum Osmolality 351 H, Lactic Acid 3.3 H*, Calcium 8.6, Total Bilirubin 0.35, AST 29, ALT 38, Alkaline Phosphatase 79, Troponin T High Sens 122 H* D, [place] [address] H, Total Protein 6.0, Albumin 3.6, Globulin 2.4, Albumin/Globulin Ratio 1.5, Lipase 57 05/13/25 15:56: Phosphorus 5.4 H, Magnesium 2.7 H, Troponin T Hi Sens 2 Hr 143 H*, b-Hydroxybutyric mmol/L 0.3, Procalcitonin 0.22 H 05/13/25 16:02: POC Glucose > 500 H* 05/13/25 17:30: Glucose 822 H*, Total Creatine Kinase 90, Troponin T Hi Sens 4Hr 232 H*, Triglycerides 168 05/13/25 18:48: POC Glucose > 500 H* 05/13/25 19:00: Lactic Acid 2.7 H* 05/13/25 19:33: Sodium 131 L, Potassium 4.9, Chloride 94 L, Carbon Dioxide 19.3 L, Anion Gap 17 H, BUN 88 H, Creatinine 2.83 H, Estim Creat Clear Calc 18.53 L, Est GFR (MDRD) Non-Af 22 L, BUN/Creatinine Ratio 31.2 H, Glucose 818 H*, Calcium 8.3 05/13/25 20:21: POC Glucose > 500 H* 05/13/25 21:40: Sodium 133, Potassium 4.3, Chloride 98, Carbon Dioxide 18.7 L, Anion Gap 17 H, BUN 83 H, Creatinine 2.70 H, Estim Creat Clear Calc 19.42 L, Est GFR (MDRD) Non-Af 23 L, BUN/Creatinine Ratio 30.9 H, Glucose 759 H* 05/13/25 21:40: Glucose Cancelled, Calcium 7.6 05/13/25 22:45: APTT Cancelled, Glucose 738 H* 05/13/25 22:47: POC Glucose > 500 H* 05/13/25 22:56: APTT 70.1 H 05/13/25 23:50: Glucose 661 H* 05/13/25 : Glucose 824 H* 05/14/25 01:48: POC Glucose > 500 H* 05/14/25 01:55: Sodium 136, Potassium 3.8, Chloride 98, Carbon Dioxide 20.0 L, Anion Gap 17 H, BUN 90 H, Creatinine 2.88 H, Estim Creat Clear Calc 18.21 L, Est GFR (MDRD) Non-Af 21 L, BUN/Creatinine Ratio 31.1 H, Glucose 583 H*, Calcium 8.3 05/14/25 02:51: POC Glucose 463 H* 05/14/25 03:49: POC Glucose 446 H 05/14/25 04:47: POC Glucose 412 H 05/14/25 05:50: WBC 7.2, RBC 2.97 L, Hgb 8.8 L, Hct 26.8 L, MCV 90.2, MCH 29.6, MCHC 32.8, RDW Std Deviation 46.8 H, RDW Coeff of Humaira 14.5, Plt Count 222, MPV 11.7, Immature Gran % (Auto) 0.300, Neut % (Auto) 86.8 H, Lymph % (Auto) 5.8 L, [place] % (Auto) 7.1, Eos % (Auto) 0.0, Baso % (Auto) 0.0, Absolute Neuts (auto) Not Reportable, APTT 74.7 H Micro: Microbiology 05/13/25 16:40 Mucosa - Nasopharyngeal Respiratory Panel (PCR) - Final 05/13/25 13:47 Mucosa - Nose SARS-CoV-2, Influenza & RSV (PCR) - Final ABG Data ABG results: ABG 05/13/25 05/13/25 05/14/25 13:57 16:52 05:30 Specimen Type JUANITA ART ART Sample Site Not entered R Radial R Radial pH 7.26 L 7.57 H Bicarbonate Actual 23.1 20.6 L Total CO2 25 21 Base Excess -4 L -2 O2 Saturation 96 99 O2 % 100.0 24.0 ABG pCO2 51.7 H 22.6 L ABG pO2 96 101 H Chris Test Positive Positive VBG pH 7.38 VBG pO2 68 H VBG HCO3 22 VBG Total CO2 23 VBG O2 Sat (Calc) 93 H VBG Base Excess -3 L POC Mix VBG pCO2 Pt Tmp 37.3 L Respiration Rate 14 24 O2 Delivery Device Not entered ET Tube Adult Vent Vent Mode AC AC Tidal Volume 450.0 400.0 POC PEEP 8 8 Radiography Diagnostic Testing: Radiology Impression Chest X-Ray 05/13/25 13:54 IMPRESSION: Mildly worse extensive pulmonary edema. Underlying focal consolidations not excluded. Reading Location: [id number] Chest X-Ray 05/13/25 16:29 IMPRESSION: 1. Appropriate positioning of the endotracheal tube. 2. Enteric tube side port projects near the expected location of the gastroesophageal junction, consider slightly advancing. 3. Slight interval worsening of bilateral airspace disease compared to earlier same-day radiographs. Reading Location: [id number] Chest X-Ray 05/13/25 21:10 IMPRESSION: Interval advancement of the enteric tube, with tip and side port now projecting below the diaphragm at the expected location of the stomach. Endotracheal tube is not visualized on this exam. Airspace disease at the lung bases is again seen. Degenerative changes of the spine. Reading Location: [id number] Chest X-Ray 05/14/25 04:18 IMPRESSION: Small interval improvement in dyiy-gbecrob-nakh-right mid/lower lung zone airspace disease, consistent with asymmetric edema or pneumonia such as aspiration pneumonia. Recommend correlation and follow up imaging. Reading [facility] Physical Exam Const Constitutional Narrative: Intubated, sedated and mechanically ventilated. HEENT normocephalic and head/scalp atraumatic Mouth: endotracheal tube in place and OG tube in place Eyes PERRL, EOMs intact bilaterally and conjunctivae normal Neck supple General: trachea midline Chest inspection of chest normal Resp Auscultation: diminished lung sounds; Negative for rales, rhonchi or wheezes Cardio regular rate and regular rhythm GI normal to inspection, nondistended, normoactive bowel sounds Extremity no clubbing, cyanosis or edema Skin no rashes or lesions noted Neuro Sensorium / Orientation: sedated on vent Charges/Coding Procedures Hospitalists Procedures: 40679 Critical Care 1st Hr
[2025-05-14 06:50] LABS: AST(SGOT) 73 U/L (<=37); Alanine Aminotransfer ALT/SGPT 38 U/L (<=46); Albumin, Serum 3.2 g/dL (3.4-4.8); Alkaline Phosphatase 69 U/L (40-129); Anion Gap 19 (5-15); BUN 89 mg/dL (4-19); BUN/Creat Ratio 30.4 RATIO (10-20); Calcium,Total 8.7 mg/dL (7.6-11.0); Carbon Dioxide 20.7 mmol/L (21.0-32.0); Chloride 98 mmol/L (98-108); Cholesterol 169 mg/dL (<=200); Estimated Creatinine Clearance 18.02 ml/min (50-250); Globulin 2.2 g/dL (2.2-4.2); Glucose 463 mg/dL (70-99); Low Density Lipoprotein Calc. 74 mg/dL; Magnesium 2.7 mg/dL (1.5-2.2); Potassium 3.6 mmol/L (3.3-5.1); Triglycerides 105 mg/dL; Very Low Density Lipoprotein 21 mg/dL (5-40); cholesterol:hdl ratio screen 2.27
[2025-05-14 08:17] LABS: Pro- Brain NATRIURETIC PEPTIDE 66010 pg/mL (<=1800); Procalcitonin 9.21 ng/mL (<=0.10)
[2025-05-14 08:29] LABS: BETA-HYDROXYBUTYRATE 0.1 mmol/L (0.0-0.3)
--- NOTE | 2025-05-14 08:31 | PN.HOSP_ITS ---
Reason for Visit Chief Complaint: Dyspnea, respiratory distress. Subjective Subjective Patient is an 79-year-old gentleman with history of chronic hypoxic respiratory failure who presented with progressive shortness of breath. . An assessment of acute hypoxic respiratory failure made admitted to a monitored bed for further management. Patient was initially managed with noninvasive ventilation BiPAP however respiratory status deteriorated resulting in patient being intubated Objective Data Objective Data Vital Signs: Vital Signs Temp Pulse Resp BP Pulse Ox O2 Del Method O2 Flow Rate 98 F 59 L 108 H 119/50 L 96 Mechanical Ventilator 10 05/14/25 04:00 05/14/25 07:07 05/14/25 07:07 05/14/25 07:00 05/14/25 07:07 05/14/25 07:00 05/13/25 13:30 FiO2 24 05/14/25 07:07 Oxygen Flow Rate (L/min) 10 Oxygen Delivery Method Mechanical Ventilator Weight: 64 kg Body Mass Index (BMI) 21.4 Intake & Output: Intake and Output for Last 24 Hours 05/12/25 05/13/25 05/14/25 23:59 23:59 23:59 Intake Total 236.86 / 298.84 216.64 / 216.64 Output Total 950 / 950 400 / 400 Balance -713.14 / -651.16 -183.36 / -183.36 Lab / Micro Data 05/14/25 05:50 05/14/25 09:20 Labs: Laboratory Results - last 24 hr 05/13/25 13:47: WBC 9.2, RBC 3.06 L, Hgb 8.8 L, Hct 28.1 L, MCV 91.8, MCH 28.8, MCHC 31.3 L, RDW Std Deviation 49.3 H, RDW Coeff of Humaira 14.8 H, Plt Count 268, MPV 11.9, PT 14.1, INR 1.1, APTT 26.2, D-Dimer Quant (PE/DVT) 2.18 H*, Sodium 129 L, Potassium 4.7, Chloride 93 L, Carbon Dioxide 17.4 L, Anion Gap 19 H, BUN 83 H, Creatinine 2.64 H, Estim Creat Clear Calc 19.01 L, Est GFR (MDRD) Non-Af 24 L, BUN/Creatinine Ratio 31.3 H, Glucose 824 H*, Serum Osmolality 351 H, L actic Acid 3.3 H*, Calcium 8.6, Total Bilirubin 0.35, AST 29, ALT 38, Alkaline Phosphatase 79, Troponin T High Sens 122 H* D, [place] [address] H, Total Protein 6.0, Albumin 3.6, Globulin 2.4, Albumin/Globulin Ratio 1.5, Lipase 57 05/13/25 15:56: Phosphorus 5.4 H, Magnesium 2.7 H, Troponin T Hi Sens 2 Hr 143 H*, b-Hydroxybutyric mmol/L 0.3, Procalcitonin 0.22 H 05/13/25 16:02: POC Glucose > 500 H* 05/13/25 17:30: Glucose 822 H*, Total Creatine Kinase 90, Troponin T Hi Sens 4Hr 232 H*, Triglycerides 168 05/13/25 18:48: POC Glucose > 500 H* 05/13/25 19:00: Lactic Acid 2.7 H* 05/13/25 19:33: Sodium 131 L, Potassium 4.9, Chloride 94 L, Carbon Dioxide 19.3 L, Anion Gap 17 H, BUN 88 H, Creatinine 2.83 H, Estim Creat Clear Calc 18.53 L, Est GFR (MDRD) Non-Af 22 L, BUN/Creatinine Ratio 31.2 H, Glucose 818 H*, Calcium 8.3 05/13/25 20:21: POC Glucose > 500 H* 05/13/25 21:40: Sodium 133, Potassium 4.3, Chloride 98, Carbon Dioxide 18.7 L, A nion Gap 17 H, BUN 83 H, Creatinine 2.70 H, Estim Creat Clear Calc 19.42 L, Est GFR (MDRD) Non-Af 23 L, BUN/Creatinine Ratio 30.9 H, Glucose 759 H* 05/13/25 21:40: Glucose Cancelled, Calcium 7.6 05/13/25 22:45: APTT Cancelled, Glucose 738 H* 05/13/25 22:47: POC Glucose > 500 H* 05/13/25 22:56: APTT 70.1 H 05/13/25 23:50: Glucose 661 H* 05/13/25 : Glucose 824 H* 05/14/25 00:46: POC Glucose > 500 H* 05/14/25 00:48: POC Glucose > 500 H* 05/14/25 01:48: POC Glucose > 500 H* 05/14/25 01:55: Sodium 136, Potassium 3.8, Chloride 98, Carbon Dioxide 20.0 L, A nion Gap 17 H, BUN 90 H, Creatinine 2.88 H, Estim Creat Clear Calc 18.21 L, Est GFR (MDRD) Non-Af 21 L, BUN/Creatinine Ratio 31.1 H, Glucose 583 H*, Calcium 8.3 05/14/25 02:51: POC Glucose 463 H* 05/14/25 03:49: POC Glucose 446 H 05/14/25 04:47: POC Glucose 412 H 05/14/25 05:50: WBC 7.2, RBC 2.97 L, Hgb 8.8 L, Hct 26.8 L, MCV 90.2, MCH 29.6, MCHC 32.8, RDW Std Deviation 46.8 H, RDW Coeff of Humaira 14.5, Plt Count 222, MPV 11.7, Immature Gran % (Auto) 0.300, Neut % (Auto) 86.8 H, Lymph % (Auto) 5.8 L, [place] % (Auto) 7.1, Eos % (Auto) 0.0, Baso % (Auto) 0.0, Absolute Neuts (auto) Not Reportable, APTT 74.7 H, Sodium 138, Potassium 3.6, Chloride 98, Carbon Dioxide 20.7 L, Anion Gap 19 H, BUN 89 H, Creatinine 2.91 H, Estim Creat Clear Calc 18.02 L, Est GFR (MDRD) Non-Af 21 L, BUN/Creatinine Ratio 30.4 H, Glucose 463 H*, Calcium 8.7, Phosphorus 4.8 H, Magnesium 2.7 H, Total Bilirubin 0.37, A ST 73 H, ALT 38, Alkaline Phosphatase 69, [place] [address] H, Total Protein 5.5 L, Albumin 3.2 L, Globulin 2.2, Albumin/Globulin Ratio 1.4, Triglycerides 105, Cholesterol 169, LDL Cholesterol, Calc 74, VLDL Cholesterol 21, HDL Cholesterol 74, Cholesterol/HDL Ratio 2.27, b-Hydroxybutyric mmol/L 0.1, P rocalcitonin 9.21 H, TSH 0.576 Micro: Microbiology 05/13/25 16:40 Mucosa - Nasopharyngeal Respiratory Panel (PCR) - Final 05/13/25 13:47 Mucosa - Nose SARS-CoV-2, Influenza & RSV (PCR) - Final ABG Data ABG results: ABG 05/13/25 05/13/25 05/14/25 13:57 16:52 05:30 Specimen Type JUANITA ART ART Sample Site Not entered R Radial R Radial pH 7.26 L 7.57 H Bicarbonate Actual 23.1 20.6 L Total CO2 25 21 Base Excess -4 L -2 O2 Saturation 96 99 O2 % 100.0 24.0 ABG pCO2 51.7 H 22.6 L ABG pO2 96 101 H Chris Test Positive Positive VBG pH 7.38 VBG pO2 68 H VBG HCO3 22 VBG Total CO2 23 VBG O2 Sat (Calc) 93 H VBG Base Excess -3 L POC Mix VBG pCO2 Pt Tmp 37.3 L Respiration Rate 14 24 O2 Delivery Device Not entered ET Tube Adult Vent Vent Mode AC AC Tidal Volume 450.0 400.0 POC PEEP 8 8 Radiography Diagnostic Testing: Radiology Impression Chest X-Ray 05/13/25 13:54 IMPRESSION: Mildly worse extensive pulmonary edema. Underlying focal consolidations not excluded. Reading Location: [id number] Chest X-Ray 05/13/25 16:29 IMPRESSION: 1. Appropriate positioning of the endotracheal tube. 2. Enteric tube side port projects near the expected location of the gastroesophageal junction, consider slightly advancing. 3. Slight interval worsening of bilateral airspace disease compared to earlier same-day radiographs. Reading Location: [id number] Chest X-Ray 05/13/25 21:10 IMPRESSION: Interval advancement of the enteric tube, with tip and side port now projecting below the diaphragm at the expected location of the stomach. Endotracheal tube is not visualized on this exam. Airspace disease at the lung bases is again seen. Degenerative changes of the spine. Reading Location: [id number] Chest X-Ray 05/14/25 04:18 IMPRESSION: Small interval improvement in [id number]-right mid/lower lung zone airspace disease, consistent with asymmetric edema or pneumonia such as aspiration pneumonia. Recommend correlation and follow up imaging. Reading Location: [place] [id number] Physical Exam Narrative GENERAL: Awake on the vent HEENT: Atraumatic; normocephalic EYES; Anicteric, Normal Conjunctiva NECK; supple, normal thyroid, RESPIRATORY: Diminished to auscultation CARDIOVASCULAR: Regular S1 S2, GI: soft, normoactive bowel sounds, : No Renal angle tenderness; EXTREMITIES: No edema, no clubbing, MUSCULOSKELETAL: no muscle wasting NEURO: no lateralizing signs. SKIN: No Rash PSYCH; Flat affect Assessment & Plan Assessment/Plan (1) Acute on chronic HFrEF (heart failure with reduced ejection fraction): PLAN: Plan Patient is an 79-year-old gentleman with history of chronic hypoxic respiratory failure who presented with progressive shortness of breath. . An assessment of acute hypoxic respiratory failure made admitted to a monitored bed for further management. Patient was initially managed with noninvasive ventilation BiPAP however respiratory status deteriorated resulting in patient being intubated 1. Acute hypoxic respiratory failure ? Secondary to flash acute on chronic congestive heart failure as well as COPD with acute exacerbation. Patient was initially managed on noninvasive ventilation via BiPAP admitted to the intensive care unit for further management. Respiratory status deteriorated resulting in patient being intubated. Consult subsequently placed to learning and development specialist/marketing proposal coordinator for vent management ? 09/13/2024 patient has been weaned off BiPAP placed on supplemental oxygen 2. Acute on chronic congestive heart failure with reduced ejection fraction 2D echo from 09/13/2024 demonstrate left ventricular systolic function is normal. The left ventricular ejection fraction is 60 %. There is moderate to severe mitral annular calcification. Pulmonary artery systolic pressure is 51 mmHg.Patient was managed with diuretic therapy in addition to patient being intubated 3. Acute hypertensive emergency ? Patient blood pressure was as high as 227/99 was started on nitroglycerin drip admitted to the intensive care unit plan is to wean once blood pressure falls below 160 ? 09/13/2024; patient has been weaned off nitro. Patient to undergo further evaluation with a renal artery duplex to rule out renal artery stenosis 4. Diabetes mellitus type 2 ? Patient is on long-acting insulin with U-500 8 continue with home dose also placed on Accu-Cheks before meals and at bedtime with sliding scale coverage 5. BPH with lower urinary obstructive symptoms - Patient treated with tamsulosin 6. Chronic hypoxic respiratory failure ? Patient is on baseline home oxygen 7. Dyslipidemia ? Patient is on his Antiminth 10 mg daily continue 8. Chronic kidney disease stage IV ? Baseline creatinine has been fluctuating between 2-1.8. Creatinine on admission was 1.86 we will continue with monitoring with daily BMPs 9. Elevated troponin ? Thought to be secondary to demand ischemia from above 10. Leukocytosis ? Etiology unclear checks x-ray did not show any infiltrate;Will continue to monitor 11. Tobacco dependence ? Counseled on cessation, offered nicotine patch for tobacco cravings 12. DVT prophylaxis ? SC heparin Time spent in the patient's overall evaluation,decision-making process, review of diagnostic data, adjustment of management, discussion with other providers, nursing nursing and ancillary staff involved in patient's care documentation, 50 minutes The patient is an 79 y/o M w/ PMHx: Tobacco use, HFrEF/Diastolic dysfuction, Valvular Heart Disease, Secondary Pulmonary HTN, IDDM, HTN, HLD, Chronic anemia/AOCD, CKD stage IV, CAD, HTN, HLD, BPH with obstruction pathology, recent discharge 05/09/2025 following admission and evaluation for acute on chronic heart failure with reduced EF of 40% with associated acute kidney injury with creatinine 3.03 up from 2.46 initially placed on IV bumetanide eventually changed back to oral Lasix in addition to treatment for suspected acute on chronic COPD exacerbation treated with bronchodilators and Solu-Medrol discharged on a prednisone burst therapy taper who now re-presents to the [facility] ED on 05/13/2025 with history of onset of severe dyspnea starting approximately 1 hour prior to ED arrival with no recent increased cough, congestion, URI type illnesses or any recent sick contacts but given severity prompted immediate EMS call. #1. Acute Hypoxic Respiratory Failure secondary to Acute on Chronic COPD Exacerbation and concern for recurrent Acute on Chronic HFrEF Exacerbation with elevated cardiac enzyme similar to recent levels likely secondary to demand ischemia/hypoxia associated with significant lactic acidosis felt likely secondary to similarly demand/hypoxia in addition to #2 with elevated D-dimer of unclear significance given significant renal disease and other comorbidities: Will admit to the ICU, given worsening respiratory status and patient amenability now to short-term intubation will transition from room 3 to ICU bed 1 with intubation plan per ED physician, following intubation will maintain intubated and sedated in the ICU, will plan repeat ABG in 1 to 2 hours, will consult learning and development specialist per protocol, will maintain on cardiac telemetry obtain cardiac enzyme series, obtain serial EKGs, continue IV lasix diuresis, monitor I/Os, maintain on intake restriction, continue medical therapy, obtain TSH and magnesium level. FLP in AM. Most recent ECHO noted 04/03/2025 as noted thus will defer immediate repeat but if enzymes rise significantly or preference of cardiology will request repeat. Will maintain oxygen once transitioned off BiPAP with wean as tolerated to home supplementation, maintain on ATC DuoNeb therapy, Albuterol, IV Solu-Medrol, encourage head of bed and I-S parameters, will attempt to obtain sputum culture, will obtain full respiratory viral panel, will obtain procalcitonin and if significantly elevated or concerns arise will initiate also on antibiotic therapy if appropriate. MRSA screen requested. Will maintain on heparin drip pending Duplex ultrasound bilateral lower extremity requested given elevated dimer. Will continue Cardiology consultation. #2. Hyperglycemia with suspected possible underlying DKA versus HHS with IDDM: Beta hydroxybutyrate acid pending upon request evaluation of patient. If this is elevated and consistent with DKA presentation would initiate and continue on insulin drip, check serial K+, glucose w/ IVF (low dose 50 cc/hr given #1) changes pending these levels, serial chemistry, obtain mag, phos daily w/ repletion as needed with transition to home SC regimen when gap closed w/ overlap on drip, nutrition consultation. Encourage diet and insulin regimen compliance. Most recent hemoglobin A1c noted 04/19/2025 7.1%. If hydroxybutyrate acid is not elevated we will pursue workup for HHS (requested osmolality level) and if also elevated will pursue insulin drip at that time. #3. Hyponatremia, suspected hypervolemic status secondary to #1: Admission CMP with sodium 129, chloride 93, suspect related with #1 and also #2, will continue to treat with diuresis and correction of potentially #2 DKA although awaiting further workup as noted, continue to serially trend BMP given #2, repeat CMP in AM. #4. EKG changes of unclear significance with V1 and V2 elevation with depression in inferior lateral leads: Prehospital EMS EKG with sinus tachycardia with elevations in V1 and V2 and depressions inferior laterally with repeat EKG upon arrival with nonspecific ST-T wave changes similar to previous however given EKG changes and hypoxia cardiology consulted and reviewed EKG and medical history and felt this was not a STEMI, will continue aspirin, Zetia given statin intolerance, FLP in AM, magnesium requested, will maintain on telemetry with continued serial cardiac enzyme trending, if enzymes rise significantly will obtain repeat echocardiogram however recently obtained as noted 04/03/2025. Will continue Cardiology consultation. #5. Valvular heart disease: Most recent echocardiogram 04/03/2025 with mild to distal anteroseptal, inferoseptal, inferior and posterior hypokinesis, estimated LVEF 40%, stage I diastolic dysfunction, mildly enlarged LA, severe mitral annular calcification, moderate 2+ posteriorly directed MDI, RVSP 41 minimally mercury, aortic sclerosis with no stenosis. #6. CAD: Following with cardiology in [place] Dr. Terrazas, known three-vessel coronary disease not amenable to surgery or percutaneous revascularization, continued medical management, currently clarifying if patient is on daily baby aspirin, noted statin intolerance on Zetia, continue Coreg, not on PASCALE inhibitor/ARB given underlying renal disease. #7. Chronic normocytic anemia/anemia of chronic disease: Admission hemoglobin 8.8, MCV 91.8, baseline hemoglobin 7-9, stable, continue to trend. #8. Chronic Kidney Disease Stage IV: Admission BUN/Cr 83/2.64, GFR 24, baseline renal function vacillates but primarily 2.7-3.0 but certainly has increased above 3, recent discharge 05/09/2025 BUN/Harjinder 80/2.87, GFR 21, repeat BMP in AM. #9. Hypertension: Continue home regimen including Coreg, hydralazine, isosorbide, IV Lasix judiciously, PRN hydralazine. #10. Hyperlipidemia: Will continue patient on Zetia regimen. Noted statin intolerance. FLP in AM. #11. BPH with obstructive pathology: Will continue patient home Proscar and Flomax regimen. #12. Tobacco Abuse: Encouraged cessation, inpatient consultation per RT, NR if desired. #13. DVT prophylaxis: Heparin drip pending cardiac enzyme and duplex US given elevated d-dimer as noted to be cautious. #14. CODE status: Patient NINA is his who is present and living will is currently in place. Given impending demise and need for possible intubation, discussed with family and patient CODE status at length including difference between FULL code, DNR-CCA and DNR-CC status. Following discussions about the differences in these status, requested continuation of DNRCC status but allowance of short-term intubation. Advanced Care Planning Face to Face Time: 16 minutes.
[2025-05-14 10:17] LABS: Anion Gap 18 (5-15); BUN 85 mg/dL (4-19); BUN/Creat Ratio 30.4 RATIO (10-20); Calcium,Total 8.4 mg/dL (7.6-11.0); Carbon Dioxide 21.3 mmol/L (21.0-32.0); Chloride 97 mmol/L (98-108); Estimated Creatinine Clearance 18.66 ml/min (50-250); Glucose 461 mg/dL (70-99); Potassium 3.3 mmol/L (3.3-5.1)
[2025-05-14] MEDS: Chlorhexidine 15 ML PO ×2 (10:35→21:03)
[2025-05-14] MEDS: Pantoprazole Sodium 40 MG in 0.9% Normal Saline (100mL MB+) 100 ML 330 MG IV ×2 (13:14→21:03)
--- NOTE | 2025-05-14 13:35 | CASEMGMT ---
Addendum entered by Almaz Rodriguez 05/14/25 13:47: Pt is active and receives SN/PT. Almaz Rodriguez DC Planning Asst. Original Note: Discharge Planning SHERRON sent to [facility] asking for confirmation of services being received. Almaz Rodriguez DC Planning Asst
[2025-05-14 13:39] LABS: Partial Thromboplast Time 39.7 Seconds (24.1-36.2)
[2025-05-14 13:47] LABS: Anion Gap 15 (5-15); BUN 86 mg/dL (4-19); BUN/Creat Ratio 31.1 RATIO (10-20); Calcium,Total 8.4 mg/dL (7.6-11.0); Carbon Dioxide 23.3 mmol/L (21.0-32.0); Chloride 102 mmol/L (98-108); Estimated Creatinine Clearance 19.07 ml/min (50-250); Glucose 234 mg/dL (70-99); Potassium 3.2 mmol/L (3.3-5.1)
--- NOTE | 2025-05-14 14:18 | CASEMGMT ---
FIDEL CM to pt room at this time for readmission review. Pt is currently intubated and sedated. There is no family at bedside currently. TC to the pt's , Alice. No answer. CM to continue to follow.
[2025-05-14] MEDS: Potassium Chloride 10mEq/100mL 10 MEQ/100 ML IV.SOLN. 100 MEQ IV BOLUS ×4 (14:29→17:49)
[2025-05-14] MEDS: Heparin Injection (Vial) 5,000 UNIT/ML VIAL IV (15:34)
--- NOTE | 2025-05-14 15:34 | CON.PCM.CA_ITS ---
Assessment & Plan Assessment/Plan (1) Acute on chronic HFrEF (heart failure with reduced ejection fraction): PLAN: Patient gives a history of heart failure reduced ejection fraction. It appears that he suddenly decompensated on the day of admission 05/13/2025. Patient also has a history of reactive airway disease that has been historically treated with steroids as recently as May 09. Patient has known coronary artery disease that is three-vessel disease not amenable to revascularization per his applications development consultant Dr. Terrazas in [place]. Patient's EF is known to be in the 40% range on his last echo when he was hospitalized April 2025. At that time he was placed on guideline directed medical therapy with hydralazine and nitrates, diuretic therapy with Lasix, and Coreg. He was tolerating good doses of the carvedilol at 25 mg twice daily hydralazine 50 mg 3 times daily Imdur 30 mg daily and Lasix 40 mg daily at discharge. The patient had only been home since May 09. Within 4 days he developed severe dyspnea on exertion and reported back to the emergency department. Would recommend limited echocardiogram to reevaluate the LV function. Appears the patient is currently on all of his guideline directed medical therapy but is difficult to tell if he is receiving it. He is intubated and sedated and on norepinephrine for pressure support. The patient does appear to be diuresing his O2 requirements have markedly decreased. We will follow-up with you. (2) Acute on chronic hypoxic respiratory failure: PLAN: The patient has recurrent acute respiratory failure related to hypoxia. This is being managed with ventilatory support by the intensive care team. (3) Chronic anemia: PLAN: Patient carries a history of chronic anemia his hemoglobin is 8.8. (4) Chronic kidney disease: QUALIFIERS: Chronic kidney disease stage: stage 4 (GFR 15-29) Q ualified Code(s): N18.4 - Chronic kidney disease, stage 4 (severe) PLAN: Currently the patient has stage IV chronic kidney disease with a GFR of 22?24. Recommend we would continue with supportive care and avoid PASCALE ARB therapy and spironolactone. Patient has a history of hyperkalemia on spironolactone. PLAN: Plan 1. When blood pressure and heart rate will tolerate it would reinstitute the Coreg 25 mg twice daily May need to start this at a lower dose and titrated upwards. 2. Reinstitute hydralazine starting at 10 mg 3 times daily titrating up to 50 mg 3 times daily. 3. Continue with IV diuresis. 4. Will repeat a limited echocardiogram to evaluate the patient's LV function to see if that further deterioration has occurred. 5. Will follow along with you. Please call if assistance is needed. HPI Consult Data Date of Consult: 05/14/25 HPI Narrative Reason for Consultation: Cardiovascular evaluation HPI Narrative: SERENA ARMANDO, is a 79 M who presents acute respiratory distress requiring BiPAP and subsequent intubation. Patient has a history of pulmonary insufficiency as well as heart failure with reduced ejection fraction. The patient was last hospitalized here in late April 2025. Patient was in respiratory distress at that point in time he was diuresed and extubated. Patient treated with guideline directed medical therapy including carvedilol 25 mg twice daily hydralazine 50 mg 3 times daily Imdur 30 mg daily and Lasix 40 mg daily. The patient follows up with Dr. Terrazas in [place]. Patient is now readmitted and intubated. There is no family available for me to talk to this afternoon. The patient was just discharged on May 09, 2025 after prolonged stay for his previous respiratory decompensation. He had she was treated with diuresis and guideline directed medical therapy for LV dysfunction as well as steroids for his COPD and wheezing. The patient went home and on the day of admission May 13, 2025 developed profound dyspnea on exertion that came on suddenly. He denied any cough fevers or chills. He presented to the emergency room on 10 L nasal cannula with hypoxia. He was subsequent placed on BiPAP and then transition to intubation and ventilatory support. The patient is a DNR with intubation. The patient's echocardiogram when he was hospitalized in April 2025 showed an EF of 40% in a global fashion. The patient has a history of three-vessel coronary artery disease that was not felt to be amenable to surgical or percutaneous revascularization by his applications development consultant in [place]. The patient was supposed to follow-up with them 7 to 10 days after discharge but does not appear that he even made it 7 days after discharge before he was readmitted. The patient also has a history of chronic kidney disease his GFR stabilized around 20 prior to discharge on his last admission. GFR today is 24 BUN 85 creatinine 2.8. 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 Patient's troponins were 122/143/232. Lower extremity Dopplers showed no venous issues. His ECG was consistent with normal sinus rhythm with PACs and no definitive STEMI was noted. The patient was also hyperglycemic his sugars have been running 400?500 and he is anemic with a hemoglobin of 8.8. The patient remains sedated and intubated. His oxygen requirements have reduced significantly. [facility] Medical History MADONNA (acute kidney injury) HFrEF (heart failure with reduced ejection fraction) ASCVD (arteriosclerotic cardiovascular disease) CKD (chronic kidney disease) stage 3, GFR 30-59 ml/min CKD (chronic kidney disease), stage IV Non-STEMI (non-ST elevated myocardial infarction) Bradycardia Anemia LV dysfunction Chronic anemia Tobacco use COPD (chronic obstructive pulmonary disease) HLD (hyperlipidemia) HTN (hypertension) BPH (benign prostatic hyperplasia) Chronic low back pain with sciatica Diabetes mellitus, type 2 CKD (chronic kidney disease), stage III Pneumonia COVID Wears glasses Wears dentures Medical History no medical history Home Medications ?Medication ?Instructions ?Recorded ?Last Taken ?Type insulin glargine 100 unit/mL (3 15 unit subcut QPM maciej betes 08/05/21 05/04/25 History mL) subcutaneous pen (Lantus Solostar U-100 Insulin) insulin lispro 100 unit/mL 0 unit subcut TID SLIDING S JENNIFER 08/05/21 05/05/25 History subcutaneous pen tamsulosin 0.4 mg capsule (Flomax) 0.4 mg PO DAILY [facility] 08/05/21 05/04/25 History ezetimibe 10 mg tablet 10 mg PO DAILY cholesterol 0 04/06/24 05/05/25 History blood sugar diagnostic (Contour 09/12/24 Unknown Hist ory Next Test Strips) hydralazine 50 mg tablet 50 mg PO Q8H BP 04/03/2503/25 History albuterol sulfate 2.5 mg/3 mL 2.5 mg (3 mL) inhalation Q2H PRN 04/22/25 05/05/25 Rx (0.083 %) solution for nebulization PRN SOB &/OR WHEEZ ING 30 days #180 mL albuterol sulfate 90 mcg/actuation 2 inh inhalation Q6 H PRN shortness 04/22/25 05/05/25 Rx breath activated powder inhaler of breath or wheezing #1 ea (ProAir RespiClick) carvedilol 25 mg tablet 25 mg PO BIDCM blood pressur e #60 04/22/25 05/05/25 Rx tabs furosemide 40 mg tablet 40 mg PO BIDLX water pill #6 0 tabs 04/22/25 05/05/25 Rx isosorbide mononitrate 30 mg 30 mg PO DAILY BP #30 tab s 04/22/25 05/05/25 Rx tablet,extended release 24 hr nebulizer and compressor #1 ea 04/22/25 Unknown Rx finasteride 5 mg tablet 5 mg PO DAILY prostate 05/0505/05/25 History prednisone 20 mg tablet 40 mg (2 x 20 mg) PO DAILY # 10 tabs 05/09/25 Unknown Rx albuterol sulfate 90 mcg/actuation 2 puff inhalation Q 6H PRN PRN 05/13/25 Unknown History aerosol inhaler wheezing Allergy/AdvReac Type Severity Reaction Status Date / Time spironolactone AdvReac Intermediate Hyperkalemi Verified 04/19/25 03:10 a Corticosteroids AdvReac Other Verified 04/03/25 00:16 (Glucocorticoids) (steroids) Cqwkyqh-FBI-TlL Reductase AdvReac Other Verified 04/03/25 00:16 Inhibitor (Ebeqluq-Iti-Rzf Reductase Inhibitor) Family History Mother COPD (chronic obstructive pulmonary disease) Father CAD (coronary artery disease) Heart disease Family History no significant family his Surgical History Hx of cystoscopy Hx of colonoscopy Hx of left cataract extraction Hx of right cataract extraction Social History household members: spouse Smoking Status: Current every day smoker tobacco type: cigarettes alcohol intake: never substance use type: does not use ROS Review of Systems ROS Unobtainable: due to endotracheal tube Physical Exam Const Constitutional Narrative: Patient is intubated and sedated. HEENT normocephalic Neck no carotid bruits Neck Narrative: Endotracheal tube noted with no obvious pulmonary edema in the tube. Resp Resp Narrative: Patient remains on ventilatory support he is sedated with propofol and fentanyl he is on 21% O2. Auscultation: diminished lung sounds diffuse Cardio Cardio Narrative: Distant heart tones. Rate: regular rate Rhythm: abnormal rhythm ectopic beats (Frequent PACs noted on telemetry) Heart Sounds: S1 normal and S2 normal; Negative for click, gallop or murmur GI normal to inspection, nondistended, normoactive bowel sounds Extremity General Extremity: edema bilateral lower extremity Details: mild Neuro Neuro Narrative: Intubated and sedated Risk Stratification Risk Stratification Applicable: No >/= 3 CAD Risk Factors (HTN, HLD, DM, family hx of CAD, or current smoker): Yes Aspirin Use in the Past 7 Days: No Severe Angina (>/= episodes in 24 hours): No EKG ST Changes >/= 0.5mm: No Positive Cardiac Marker: Yes Charges/Coding Visit Charges Inpatient E&M: 60770 Init Hosp L3 Objective Data Vital Signs: Vital Signs Temp Pulse Resp BP Pulse Ox O2 Del Method O2 Flow Rate 97.5 F L 62 18 100/44 L 96 Mechanical Ventilator 10 05/14/25 13:00 05/14/25 14:42 05/14/25 14:42 05/14/25 14:28 05/14/25 14:39 05/14/25 14:00 05/13/25 13:30 FiO2 21 05/14/25 14:39 Oxygen Flow Rate (L/min) 10 Oxygen Delivery Method Mechanical Ventilator Weight: 141 lb 1.533 oz Body Mass Index (BMI) 21.4 Intake & Output: Intake and Output for Last 24 Hours 05/12/25 05/13/25 05/14/25 23:59 23:59 23:59 Intake Total 236.86 / 298.84 610.42 / 610.42 Output Total 950 / 950 400 / 400 Balance -713.14 / -651.16 210.42 / 210.42 Lab / Micro Data Attestation: I reviewed the patient's lab results. 05/14/25 05:50 05/14/25 13:00 Labs: Laboratory Results - last 24 hr 05/13/25 13:47: PT 14.1, INR 1.1, APTT 26.2, Serum Osmolality 351 H 05/13/25 15:56: Phosphorus 5.4 H, Magnesium 2.7 H, Troponin T Hi Sens 2 Hr 143 H*, b-Hydroxybutyric mmol/L 0.3, Procalcitonin 0.22 H 05/13/25 16:02: POC Glucose > 500 H* 05/13/25 17:30: Glucose 822 H*, Total Creatine Kinase 90, Troponin T Hi Sens 4Hr 232 H*, Triglycerides 168 05/13/25 18:48: POC Glucose > 500 H* 05/13/25 19:00: Lactic Acid 2.7 H* 05/13/25 19:33: Sodium 131 L, Potassium 4.9, Chloride 94 L, Carbon Dioxide 19.3 L, Anion Gap 17 H, BUN 88 H, Creatinine 2.83 H, Estim Creat Clear Calc 18.53 L, Est GFR (MDRD) Non-Af 22 L, BUN/Creatinine Ratio 31.2 H, Glucose 818 H*, Calcium 8.3 05/13/25 20:21: POC Glucose > 500 H* 05/13/25 21:40: Sodium 133, Potassium 4.3, Chloride 98, Carbon Dioxide 18.7 L, A nion Gap 17 H, BUN 83 H, Creatinine 2.70 H, Estim Creat Clear Calc 19.42 L, Est GFR (MDRD) Non-Af 23 L, BUN/Creatinine Ratio 30.9 H, Glucose 759 H* 05/13/25 21:40: Glucose Cancelled, Calcium 7.6 05/13/25 22:45: APTT Cancelled, Glucose 738 H* 05/13/25 22:47: POC Glucose > 500 H* 05/13/25 22:56: APTT 70.1 H 05/13/25 23:50: Glucose 661 H* 05/13/25 : Glucose 824 H* 05/14/25 00:46: POC Glucose > 500 H* 05/14/25 00:48: POC Glucose > 500 H* 05/14/25 01:48: POC Glucose > 500 H* 05/14/25 01:55: Sodium 136, Potassium 3.8, Chloride 98, Carbon Dioxide 20.0 L, A nion Gap 17 H, BUN 90 H, Creatinine 2.88 H, Estim Creat Clear Calc 18.21 L, Est GFR (MDRD) Non-Af 21 L, BUN/Creatinine Ratio 31.1 H, Glucose 583 H*, Calcium 8.3 05/14/25 02:51: POC Glucose 463 H* 05/14/25 03:49: POC Glucose 446 H 05/14/25 04:47: POC Glucose 412 H 05/14/25 05:50: WBC 7.2, RBC 2.97 L, Hgb 8.8 L, Hct 26.8 L, MCV 90.2, MCH 29.6, MCHC 32.8, RDW Std Deviation 46.8 H, RDW Coeff of Humaira 14.5, Plt Count 222, MPV 11.7, Immature Gran % (Auto) 0.300, Neut % (Auto) 86.8 H, Lymph % (Auto) 5.8 L, Glascock % (Auto) 7.1, Eos % (Auto) 0.0, Baso % (Auto) 0.0, Absolute Neuts (auto) Not Reportable, APTT 74.7 H, Sodium 138, Potassium 3.6, Chloride 98, Carbon Dioxide 20.7 L, Anion Gap 19 H, BUN 89 H, Creatinine 2.91 H, Estim Creat Clear Calc 18.02 L, Est GFR (MDRD) Non-Af 21 L, BUN/Creatinine Ratio 30.4 H, Glucose 463 H*, Calcium 8.7, Phosphorus 4.8 H, Magnesium 2.7 H, Total Bilirubin 0.37, A ST 73 H, ALT 38, Alkaline Phosphatase 69, [place] [address] H, Total Protein 5.5 L, Albumin 3.2 L, Globulin 2.2, Albumin/Globulin Ratio 1.4, Triglycerides 105, Cholesterol 169, LDL Cholesterol, Calc 74, VLDL Cholesterol 21, HDL Cholesterol 74, Cholesterol/HDL Ratio 2.27, b-Hydroxybutyric mmol/L 0.1, P rocalcitonin 9.21 H, TSH 0.576 05/14/25 06:07: POC Glucose 412 H 05/14/25 06:48: POC Glucose 307 H 05/14/25 08:27: POC Glucose 392 H 05/14/25 09:20: Sodium 136, Potassium 3.3, Chloride 97 L, Carbon Dioxide 21.3, A nion Gap 18 H, BUN 85 H, Creatinine 2.81 H, Estim Creat Clear Calc 18.66 L, Est GFR (MDRD) Non-Af 22 L, BUN/Creatinine Ratio 30.4 H, Glucose 461 H*, Calcium 8.4 05/14/25 10:32: POC Glucose 264 H 05/14/25 12:03: POC Glucose 245 H 05/14/25 13:00: APTT 39.7 H, Sodium 140, Potassium 3.2 L, Chloride 102, Carbon Dioxide 23.3, Anion Gap 15, BUN 86 H, Creatinine 2.75 H, Estim Creat Clear Calc 19.07 L, Est GFR (MDRD) Non-Af 22 L, BUN/Creatinine Ratio 31.1 H, Glucose 234 H, Calcium 8.4 05/14/25 13:23: POC Glucose 202 H Micro: Microbiology 05/13/25 16:40 Mucosa - Nasopharyngeal Respiratory Panel (PCR) - Final 05/13/25 13:47 Mucosa - Nose SARS-CoV-2, Influenza & RSV (PCR) - Final ABG Data ABG results: ABG 05/13/25 05/14/25 16:52 05:30 Specimen Type ART ART Sample Site R Radial R Radial pH 7.26 L 7.57 H Bicarbonate Actual 23.1 20.6 L Total CO2 25 21 Base Excess -4 L -2 O2 Saturation 96 99 O2 % 100.0 24.0 ABG pCO2 51.7 H 22.6 L ABG pO2 96 101 H Chris Test Positive Positive Respiration Rate 14 24 O2 Delivery Device ET Tube Adult Vent Vent Mode AC AC Tidal Volume 450.0 400.0 POC PEEP 8 8 Rhythm Strip Rhythm Strip: Sinus Rhythm Rate: 70 Ectopy: PAC(s) Cardiology Labs/Tests 05/13/25 13:47: PT 14.1, INR 1.1, APTT 26.2, Serum Osmolality 351 H 05/13/25 15:56: Phosphorus 5.4 H, Magnesium 2.7 H 05/13/25 16:52: pH 7.26 L, Bicarbonate Actual 23.1, Base Excess -4 L, O2 Saturation 96, ABG pCO2 51.7 H, ABG pO2 96, Chris Test Positive 05/13/25 17:30: Glucose 822 H*, Triglycerides 168 05/13/25 19:00: Lactic Acid 2.7 H* 05/13/25 19:33: Sodium 131 L, Potassium 4.9, Chloride 94 L, Carbon Dioxide 19.3 L, Anion Gap 17 H, BUN 88 H, Creatinine 2.83 H, Est GFR (MDRD) Non-Af 22 L, B UN/Creatinine Ratio 31.2 H, Glucose 818 H*, Calcium 8.3 05/13/25 21:40: Sodium 133, Potassium 4.3, Chloride 98, Carbon Dioxide 18.7 L, A nion Gap 17 H, BUN 83 H, Creatinine 2.70 H, Est GFR (MDRD) Non-Af 23 L, B UN/Creatinine Ratio 30.9 H, Glucose 759 H* 05/13/25 21:40: Glucose Cancelled, Calcium 7.6 05/13/25 22:45: APTT Cancelled, Glucose 738 H* 05/13/25 22:56: APTT 70.1 H 05/13/25 23:50: Glucose 661 H* 05/13/25 : Glucose 824 H* 05/14/25 01:55: Sodium 136, Potassium 3.8, Chloride 98, Carbon Dioxide 20.0 L, A nion Gap 17 H, BUN 90 H, Creatinine 2.88 H, Est GFR (MDRD) Non-Af 21 L, B UN/Creatinine Ratio 31.1 H, Glucose 583 H*, Calcium 8.3 05/14/25 05:30: pH 7.57 H, Bicarbonate Actual 20.6 L, Base Excess -2, O2 Saturation 99, ABG pCO2 22.6 L, ABG pO2 101 H, Chris Test Positive 05/14/25 05:50: WBC 7.2, RBC 2.97 L, Hgb 8.8 L, Hct 26.8 L, MCV 90.2, MCH 29.6, MCHC 32.8, Plt Count 222, MPV 11.7, Immature Gran % (Auto) 0.300, Neut % (Auto) 86.8 H, Lymph % (Auto) 5.8 L, Gl[place]ock % (Auto) 7.1, Eos % (Auto) 0.0, Baso % (Auto) 0.0, Absolute Neuts (auto) Not Reportable, APTT 74.7 H, Sodium 138, Potassium 3.6, Chloride 98, Carbon Dioxide 20.7 L, Anion Gap 19 H, BUN 89 H, Creatinine 2.91 H, Est GFR (MDRD) Non-Af 21 L, BUN/Creatinine Ratio 30.4 H, Glucose 463 H*, Calcium 8.7, Phosphorus 4.8 H, Magnesium 2.7 H, Total Bilirubin 0.37, Triglycerides 105, Cholesterol 169, VLDL Cholesterol 21, HDL Cholesterol 74, Cholesterol/HDL Ratio 2.27 05/14/25 09:20: Sodium 136, Potassium 3.3, Chloride 97 L, Carbon Dioxide 21.3, A nion Gap 18 H, BUN 85 H, Creatinine 2.81 H, Est GFR (MDRD) Non-Af 22 L, B UN/Creatinine Ratio 30.4 H, Glucose 461 H*, Calcium 8.4 05/14/25 13:00: APTT 39.7 H, Sodium 140, Potassium 3.2 L, Chloride 102, Carbon Dioxide 23.3, Anion Gap 15, BUN 86 H, Creatinine 2.75 H, Est GFR (MDRD) Non-Af 22 L, BUN/Creatinine Ratio 31.1 H, Glucose 234 H, Calcium 8.4 Rhythm: EKG: ECHO: Stress Test: Cardiac Cath: PCI: CT Surgery: Holter monitor: EPS: PPM: CXR: Chest CT Scan: Radiography Diagnostic Testing: Radiology Impression Venous Doppler Study 05/13/25 16:02 Interpretation Summary Deep veins of the bilateral lower extremities are patent and compressible segmentally. There is no evidence of bilateral lower extremity deep vein thrombosis. The bilateral great saphenous veins appear patent and compressible segmentally. Ordering Physician: Dyana Hwang Referring Physician: Ryley Montenegro Performed By: Pierce Eaton, RVT Chest X-Ray 05/13/25 16:29 IMPRESSION: 1. Appropriate positioning of the endotracheal tube. 2. Enteric tube side port projects near the expected location of the gastroesophageal junction, consider slightly advancing. 3. Slight interval worsening of bilateral airspace disease compared to earlier same-day radiographs. Reading Location: [id number] Chest X-Ray 05/13/25 21:10 IMPRESSION: Interval advancement of the enteric tube, with tip and side port now projecting below the diaphragm at the expected location of the stomach. Endotracheal tube is not visualized on this exam. Airspace disease at the lung bases is again seen. Degenerative changes of the spine. Reading Location: [facility] Chest X-Ray 05/14/25 04:18 IMPRESSION: Small interval improvement in fwmz-[id number]-fqrt-right mid/lower lung zone airspace disease, consistent with asymmetric edema or pneumonia such as aspiration pneumonia. Recommend correlation and follow up imaging. Reading Location: [facility]
--- NOTE | 2025-05-14 16:02 | ECHOL_ITS ---
Reason For Study Reason For Study: CONGESTIVE HEART FAILURE Procedure This was a limited 2D transthoracic echocardiogram. The patient was scanned supine. Patient was on ventillator during exam. Exam performed portable in ICU/CCU. Left Ventricle Normal LV size. Mild concentric left ventricular hypertrophy. Generalized LV hypokinesis. Severe inferior and septal hypokinesis. Estimated LVEF 30%. At least stage I diastolic dysfunction. Right Ventricle Normal right ventricle. Atria The left and right atria are normal. Mitral Valve Severe mitral annular calcification. Tricuspid Valve Structurally normal. Aortic Valve Trisinus/trileaflet aortic valve. Pulmonic Valve The pulmonic valve is not well visualized. Great Vessels Normal sized aortic root. Pericardium/Pleural No pericardial effusion. MMode/2D Measurements & Calculations LVIDd: 4.3 cm IVSd: 1.3 cm LAV(MOD- bp): 35.8 ml LVIDs: 3.5 cm LVPWd: 1.3 cm LAV(MOD- bp) Indexed: 20.3 ml/m2 RVDd: 2.9 cm FS: 18.4 % LAV(MOD- sp2): 48.9 ml LAV(MOD- sp4): 25.1 ml SV(MOD- sp4): 13.8 ml LVAd ap4: 20.8 cm2 LVAd ap2: 22.9 cm2 LVLd ap4: 7.1 cm LVLd ap2: 8.6 cm SI(MOD- sp4): 7.8 ml/m2 EDV(MOD-sp4): 50.6 ml EDV(MOD-sp2): 53.5 ml EDV(sp4-el): 51.6 ml EDV(sp2-el): 51.8 ml LVAs ap4: 16.6 cm2 LVAs ap2: 18.4 cm2 LVLs ap4: 6.1 cm LVLs ap2: 7.8 cm ESV(MOD-sp4): 36.8 ml ESV(MOD-sp2): 38.2 ml ESV(sp4-el): 38.2 ml ESV(sp2-el): 37.1 ml EF(MOD-sp4): 27.3 % EF(MOD-sp2): 28.5 % EF(sp4-el): 26.0 % SV(MOD-sp2): 15.2 ml SV(sp4-el): 13.4 ml LA A4 area: 11.7 cm2 SI(MOD-sp2): 8.7 ml/m2 LA dimension(2D): 3.5 cm TAPSE: 1.3 cm RA A4 area: 13.5 cm2 Doppler Measurements & Calculations Lat Peak E' Tommy: 5.7 cm/sec Med Peak E' Tommy: 3.7 cm/sec ECHO/Echo, Limited Study Interpretation Summary Mild concentric left ventricular hypertrophy. Generalized LV hypokinesis. Severe inferior and septal hypokinesis. Estimated L VEF 30%. At least stage I diastolic dysfunction. Severe mitral annular calcification. Ordering Physician: Breezy Campbell Performed By: Fiordaliza Edgar RDCS and Student
[2025-05-14] MEDS: fentaNYL drip 100 ML 2.5 MCG CONT INF (17:04)
[2025-05-14 22:30] LABS: Partial Thromboplast Time 50.6 Seconds (24.1-36.2)
[2025-05-14] MEDS: Insulin Glargine-YFGN 100 UNIT/ML Pen 15 UNIT SC (23:34)
[2025-05-15] VITALS (40 sets, daily range): BP systolic 99–166; BP diastolic 44–92; PULSE 48–86; RESP 14–18; TEMP 36.3–36.8; O2SAT 92–100; BMI 20.9
--- NOTE | 2025-05-15 03:50 | RAD_ITS ---
PROCEDURE: CHEST 1 VIEW (PORTABLE) 05/15/2025 REASON FOR EXAM: RESPIRATORY FAILURE TECHNIQUE: Frontal view of the chest. COMPARISON: 05/14/2025 FINDINGS: ETT tip just below the thoracic inlet. Enteric tube tip in stomach lumen. Normal heart size. Small left effusion. Left mid and lower lung zone airspace disease, atelectasis/consolidation. Small interval improvement. Blunted right angle. Faint right basilar opacity favoring atelectasis. Interval clearing of faint right mid lung airspace disease. RAD/Chest 1 View (Portable) IMPRESSION: Suspected left lung pneumonia, small interval improvement. Reading Location: [facility]
[2025-05-15] MEDS: Propofol 10MG/Ml 1,000 MG/100 ML Bottle 5.5 MG CONT INF (04:00)
[2025-05-15] MEDS: HEPARIN/D5w 25,000 UNITS 25,000 UNITS/250 ML IV.SOLN. 9 UNITS CONT INF (04:12)
[2025-05-15 05:18] LABS: Hematocrit 24.4 % (40-54); Hemoglobin 7.9 g/dL (13.0-16.5); Immature Granulocytes Count 0.030 X10^3/uL (0.0-0.0); Mean Corp Hgb Conc 32.4 g/dL (32-36); Mean Corpuscular Volume 89.7 fL (80-94); Mean Platelet Vol. 11.7 fl (6.2-12.0); NRBC Flagged by Analyzer 0 % (0-5); Platelet Count 202 K/mm3 (150-450); RBC Distribution Width CV 14.8 % (11.6-14.6); RBC Distribution Width SD 48.1 fl (35.1-43.9); Red Blood Count 2.72 M/mm3 (4.6-6.2); White Blood Count 7.5 K/mm3 (4.4-11.0)
[2025-05-15 05:33] LABS: Base Excess 2 mmol/L (-2 to +2); FI02 21.0; PEEP 5; PO2 57 mmHG (75-100); RR 18; SITE R Brach; SO2 92 % (95-99)
[2025-05-15 05:54] LABS: Partial Thromboplast Time 83.0 Seconds (24.1-36.2)
[2025-05-15 06:12] LABS: Anion Gap 15 (5-15); BUN 81 mg/dL (4-19); BUN/Creat Ratio 31.0 RATIO (10-20); Calcium,Total 8.0 mg/dL (7.6-11.0); Carbon Dioxide 21.7 mmol/L (21.0-32.0); Chloride 102 mmol/L (98-108); Estimated Creatinine Clearance 19.75 ml/min (50-250); Glucose 298 mg/dL (70-99); Magnesium 2.5 mg/dL (1.5-2.2); Potassium 3.8 mmol/L (3.3-5.1)
--- NOTE | 2025-05-15 06:53 | PN.CC_ITS ---
Assessment & Plan Assessment/Plan (1) Acute on chronic HFrEF (heart failure with reduced ejection fraction): (2) Acute hypoxic respiratory failure: PLAN: Plan RECOMMENDATIONS: 1. Continue to hold sedation and reattempt spontaneous breathing trial. 2. Continue scheduled bronchodilators. 3. Repeat echocardiogram is pending. 4. Continue basal and sliding scale insulin coverage. 5. Continue ongoing attempts at diuresis, as tolerated by hemodynamics and renal function. 6. Continue appropriate ICU prophylaxis. IMPRESSIONS: 1. Acute hypoxemic respiratory failure Clinical concern for multifactorial etiology with possible COPD exacerbation along with CHF exacerbation contributing. However, I do feel that is far more likely that the patient's main issue at presentation was decompensated heart failure, given his interval improvement in his oxygenation status with aggressive diuresis. The patient has an extensive tobacco abuse history, but has never been formally diagnosed with COPD. For now, the patient will be continued on bronchodilator therapy along with diuretics, as tolerated by hemodynamics and renal function. Cardiology is currently following to assist with medical management. Plan to obtain follow-up echocardiogram today. Ideally, the patient will need outpatient follow-up in the pulmonary medicine office after discharge so that baseline PFTs can be obtained. 2. Chronic tobacco dependency Tobacco cessation is strongly advised. Recommend outpatient pulmonary follow-up and PFTs after discharge. 3. Elevated troponin likely secondary to demand ischemia in the setting of #1 Continue current supportive care. Cardiology is following to assist with medical management. 4. Hyperglycemia Most likely secondary to HHS. Continue basal and sliding scale insulin coverage. 5. History of chronic kidney disease/anemia/hypertension/hyperlipidemia/diabetes mellitus/coronary artery disease Complicates care, management, recovery and prognosis. Continue home medications as indicated. TIME: 34 minutes of critical care time, independent of procedures, was spent addressing the patient's acute hypoxemic respiratory failure, history of tobacco dependency, elevated troponin, hyperglycemia, review of all data and collaboration with the care team. Subjective Subjective The patient was seen and examined at the bedside this morning. Events from the last 24 hours have been reviewed. The patient is currently afebrile, hemodynamically stable and maintaining appropriate oxygen saturations on assist- control mode mechanical ventilation with an FiO2 requirement of 21% and PEEP of 5. The patient is currently documented to be overall net -1.6 L for the hospitalization. White blood cell count is normal. Hemoglobin is stable at 7.9 g/dL. Creatinine is stable at 2.6. Although the patient completed a spontaneous awakening trial, he subsequently became apneic on his SBT. Objective Data Objective Data The patient's most recent lab work, culture data and imaging studies have all been personally reviewed. Surface echocardiogram from April 2025 demonstrated mild to distal hypokinesis of the LV with an ejection fraction of 40% and stage I diastolic dysfunction. Moderate mitral valve insufficiency was noted. Right ventricular systolic pressure was estimated to be 41 mmHg. Blood, urine and sputum cultures are pending. Vital Signs: Vital Signs Temp Pulse Resp BP Pulse Ox O2 Del Method O2 Flow Rate 98.1 F 60 18 140/45 H 98 Mechanical Ventilator 10 05/15/25 05:00 05/15/25 06:43 05/15/25 06:43 05/15/25 06:00 05/15/25 06:43 05/15/25 06:00 05/13/25 13:30 FiO2 21 05/15/25 06:43 Oxygen Flow Rate (L/min) 10 Oxygen Delivery Method Mechanical Ventilator Weight: 138 lb 10.732 oz Body Mass Index (BMI) 20.9 Intake & Output: Intake and Output for Last 24 Hours 05/13/25 05/14/25 05/15/25 23:59 23:59 23:59 Intake Total 236.86 / 298.84 1371.53 / 1379.53 119.27 / 119.27 Output Total 950 / 950 1500 / 1500 950 / 950 Balance -713.14 / -651.16 -128.47 / -120.47 -830.73 / -830.73 Lab / Micro Data Attestation: I reviewed the patient's lab results. 05/15/25 05:10 05/15/25 05:10 Labs: Laboratory Results - last 24 hr 05/14/25 00:46: POC Glucose > 500 H* 05/14/25 00:48: POC Glucose > 500 H* 05/14/25 05:50: [place] [address] H, b-Hydroxybutyric mmol/L 0.1, P rocalcitonin 9.21 H 05/14/25 06:07: POC Glucose 412 H 05/14/25 06:48: POC Glucose 307 H 05/14/25 08:27: POC Glucose 392 H 05/14/25 09:20: Sodium 136, Potassium 3.3, Chloride 97 L, Carbon Dioxide 21.3, A nion Gap 18 H, BUN 85 H, Creatinine 2.81 H, Estim Creat Clear Calc 18.66 L, Est GFR (MDRD) Non-Af 22 L, BUN/Creatinine Ratio 30.4 H, Glucose 461 H*, Calcium 8.4 05/14/25 10:32: POC Glucose 264 H 05/14/25 12:03: POC Glucose 245 H 05/14/25 13:00: APTT 39.7 H, Sodium 140, Potassium 3.2 L, Chloride 102, Carbon Dioxide 23.3, Anion Gap 15, BUN 86 H, Creatinine 2.75 H, Estim Creat Clear Calc 19.07 L, Est GFR (MDRD) Non-Af 22 L, BUN/Creatinine Ratio 31.1 H, Glucose 234 H, Calcium 8.4 05/14/25 13:23: POC Glucose 202 H 05/14/25 16:37: POC Glucose 132 H 05/14/25 17:47: POC Glucose 101 05/14/25 21:43: APTT 50.6 H 05/14/25 23:33: POC Glucose 268 H 05/15/25 04:59: POC Glucose 284 H 05/15/25 05:10: WBC 7.5, RBC 2.72 L, Hgb 7.9 L, Hct 24.4 L, MCV 89.7, MCH 29.0, MCHC 32.4, RDW Std Deviation 48.1 H, RDW Coeff of Humaira 14.8 H, Plt Count 202, MPV 11.7, Immature Gran % (Auto) 0.400, Neut % (Auto) 81.1 H, Lymph % (Auto) 10.4 L, [place] % (Auto) 8.1, Eos % (Auto) 0.0, Baso % (Auto) 0.0, Absolute Neuts (auto) 6.1, Absolute Lymphs (auto) 0.78 L, Nucleated RBC % 0, APTT Cancelled, Sodium 139, Potassium 3.8, Chloride 102, Carbon Dioxide 21.7, Anion Gap 15, BUN 81 H, C reatinine 2.61 H, Estim Creat Clear Calc 19.75 L, Est GFR (MDRD) Non-Af 24 L, B UN/Creatinine Ratio 31.0 H, Glucose 298 H, Calcium 8.0, Phosphorus 4.8 H, M agnesium 2.5 H 05/15/25 05:24: APTT 83.0 H Micro: Microbiology 05/13/25 16:40 Mucosa - Nasopharyngeal Respiratory Panel (PCR) - Final 05/13/25 13:47 Mucosa - Nose SARS-CoV-2, Influenza & RSV (PCR) - Final ABG Data ABG results: ABG 05/15/25 05:30 Specimen Type ART Sample Site R Brach pH 7.51 H Bicarbonate Actual 25.3 Total CO2 26 Base Excess 2 O2 Saturation 92 L O2 % 21.0 ABG pCO2 31.6 L ABG pO2 57 L Chris Test N/A Respiration Rate 18 O2 Delivery Device Adult Vent Vent Mode AC Tidal Volume 400.0 POC PEEP 5 Radiography Diagnostic Testing: Radiology Impression Venous Doppler Study 05/13/25 16:02 Interpretation Summary Deep veins of the bilateral lower extremities are patent and compressible segmentally. There is no evidence of bilateral lower extremity deep vein thrombosis. The bilateral great saphenous veins appear patent and compressible segmentally. Ordering Physician: Dyana Hwang Referring Physician: Ryley Montenegro Performed By: Pierce Eaton, T Chest X-Ray 05/15/25 03:50 IMPRESSION: Suspected left lung pneumonia, small interval improvement. Reading Location: [place] [address] Rhythm Strip Rhythm Strip: Sinus Rhythm Rate: 70 Ectopy: PAC(s) Physical Exam Const Constitutional Narrative: Intubated, sedated and mechanically ventilated. HEENT normocephalic and head/scalp atraumatic Mouth: endotracheal tube in place and OG tube in place Eyes PERRL, EOMs intact bilaterally and conjunctivae normal Neck supple General: trachea midline Chest inspection of chest normal Resp Auscultation: rhonchi and diminished lung sounds; Negative for rales or wheezes Cardio regular rate and regular rhythm GI normal to inspection, nondistended, normoactive bowel sounds Extremity General Extremity: edema bilateral lower extremity; Negative for clubbing Skin no rashes or lesions noted Neuro Sensorium / Orientation: sedated on vent Charges/Coding Procedures Hospitalists Procedures: 06201 Critical Care 1st Hr
--- NOTE | 2025-05-15 06:58 | PN.HOSP_ITS ---
Reason for Visit Chief Complaint: Dyspnea, respiratory distress. Subjective Subjective Patient seen awake on the vent. Currently undergoing weaning trial. Patient responded to diuretic therapy Objective Data Objective Data Vital Signs: Vital Signs Temp Pulse Resp BP Pulse Ox O2 Del Method O2 Flow Rate 98.1 F 60 18 140/45 H 98 Mechanical Ventilator 10 05/15/25 05:00 05/15/25 06:43 05/15/25 06:43 05/15/25 06:00 05/15/25 06:43 05/15/25 06:00 05/13/25 13:30 FiO2 21 05/15/25 06:43 Oxygen Flow Rate (L/min) 10 Oxygen Delivery Method Mechanical Ventilator Weight: 62.9 kg Body Mass Index (BMI) 20.9 Intake & Output: Intake and Output for Last 24 Hours 05/13/25 05/14/25 05/15/25 23:59 23:59 23:59 Intake Total 236.86 / 298.84 1371.53 / 1379.53 119.27 / 119.27 Output Total 950 / 950 1500 / 1500 950 / 950 Balance -713.14 / -651.16 -128.47 / -120.47 -830.73 / -830.73 Lab / Micro Data 05/15/25 05:10 05/15/25 05:10 Labs: Laboratory Results - last 24 hr 05/14/25 00:46: POC Glucose > 500 H* 05/14/25 00:48: POC Glucose > 500 H* 05/14/25 05:50: [place] [address] H, b-Hydroxybutyric mmol/L 0.1, P rocalcitonin 9.21 H 05/14/25 06:07: POC Glucose 412 H 05/14/25 06:48: POC Glucose 307 H 05/14/25 08:27: POC Glucose 392 H 05/14/25 09:20: Sodium 136, Potassium 3.3, Chloride 97 L, Carbon Dioxide 21.3, A nion Gap 18 H, BUN 85 H, Creatinine 2.81 H, Estim Creat Clear Calc 18.66 L, Est GFR (MDRD) Non-Af 22 L, BUN/Creatinine Ratio 30.4 H, Glucose 461 H*, Calcium 8.4 05/14/25 10:32: POC Glucose 264 H 05/14/25 12:03: POC Glucose 245 H 05/14/25 13:00: APTT 39.7 H, Sodium 140, Potassium 3.2 L, Chloride 102, Carbon Dioxide 23.3, Anion Gap 15, BUN 86 H, Creatinine 2.75 H, Estim Creat Clear Calc 19.07 L, Est GFR (MDRD) Non-Af 22 L, BUN/Creatinine Ratio 31.1 H, Glucose 234 H, Calcium 8.4 05/14/25 13:23: POC Glucose 202 H 05/14/25 16:37: POC Glucose 132 H 05/14/25 17:47: POC Glucose 101 05/14/25 21:43: APTT 50.6 H 05/14/25 23:33: POC Glucose 268 H 05/15/25 04:59: POC Glucose 284 H 05/15/25 05:10: WBC 7.5, RBC 2.72 L, Hgb 7.9 L, Hct 24.4 L, MCV 89.7, MCH 29.0, MCHC 32.4, RDW Std Deviation 48.1 H, RDW Coeff of Humaira 14.8 H, Plt Count 202, MPV 11.7, Immature Gran % (Auto) 0.400, Neut % (Auto) 81.1 H, Lymph % (Auto) 10.4 L, [place] % (Auto) 8.1, Eos % (Auto) 0.0, Baso % (Auto) 0.0, Absolute Neuts (auto) 6.1, Absolute Lymphs (auto) 0.78 L, Nucleated RBC % 0, APTT Cancelled, Sodium 139, Potassium 3.8, Chloride 102, Carbon Dioxide 21.7, Anion Gap 15, BUN 81 H, C reatinine 2.61 H, Estim Creat Clear Calc 19.75 L, Est GFR (MDRD) Non-Af 24 L, B UN/Creatinine Ratio 31.0 H, Glucose 298 H, Calcium 8.0, Phosphorus 4.8 H, M agnesium 2.5 H 05/15/25 05:24: APTT 83.0 H Micro: Microbiology 05/13/25 16:40 Mucosa - Nasopharyngeal Respiratory Panel (PCR) - Final 05/13/25 13:47 Mucosa - Nose SARS-CoV-2, Influenza & RSV (PCR) - Final ABG Data ABG results: ABG 05/15/25 05:30 Specimen Type ART Sample Site R Brach pH 7.51 H Bicarbonate Actual 25.3 Total CO2 26 Base Excess 2 O2 Saturation 92 L O2 % 21.0 ABG pCO2 31.6 L ABG pO2 57 L Chris Test N/A Respiration Rate 18 O2 Delivery Device Adult Vent Vent Mode AC Tidal Volume 400.0 POC PEEP 5 Radiography Diagnostic Testing: Radiology Impression Venous Doppler Study 05/13/25 16:02 Interpretation Summary Deep veins of the bilateral lower extremities are patent and compressible segmentally. There is no evidence of bilateral lower extremity deep vein thrombosis. The bilateral great saphenous veins appear patent and compressible segmentally. Ordering Physician: Dyana Hwang Referring Physician: Ryley Montenegro Performed By: Pierce Eaton RVT Chest X-Ray 05/15/25 03:50 IMPRESSION: Suspected left lung pneumonia, small interval improvement. Reading Location: [place] [address] Rhythm Strip Rhythm Strip: Sinus Rhythm Rate: 70 Ectopy: PAC(s) Physical Exam Narrative GENERAL: Awake on the vent HEENT: Atraumatic; normocephalic EYES; Anicteric, Normal Conjunctiva NECK; supple, normal thyroid, RESPIRATORY: Diminished to auscultation CARDIOVASCULAR: Regular S1 S2, GI: soft, normoactive bowel sounds, : No Renal angle tenderness; EXTREMITIES: No edema, no clubbing, MUSCULOSKELETAL: no muscle wasting NEURO: no lateralizing signs. SKIN: No Rash PSYCH; Flat affect Assessment & Plan Assessment/Plan (1) Acute on chronic HFrEF (heart failure with reduced ejection fraction): PLAN: Plan Patient is an 79-year-old gentleman with history of chronic hypoxic respiratory failure who presented with progressive shortness of breath. . An assessment of acute hypoxic respiratory failure made admitted to a monitored bed for further management. Patient was initially managed with noninvasive ventilation BiPAP however respiratory status deteriorated resulting in patient being intubated 1. Acute hypoxic respiratory failure ? Secondary to flash acute on chronic congestive heart failure as well as COPD with acute exacerbation. Patient was initially managed on noninvasive ventilation via BiPAP admitted to the intensive care unit for further management. Respiratory status deteriorated resulting in patient being intubated. Consult subsequently placed to internet assessor/xerox machine mechanic for vent management 05/15/2025; patient currently undergoing weaning trial 2. Acute on chronic congestive heart failure with reduced ejection fraction 2D echo from 09/13/2024 demonstrate left ventricular systolic function is normal. The left ventricular ejection fraction is 60 %. There is moderate to severe mitral annular calcification. Pulmonary artery systolic pressure is 51 mmHg.Patient was managed with diuretic therapy in addition to patient being intubated ? 05/15/2025; patient responding to diuretic therapy 3. Hyponatremia ? Secondary to hypervolemic hyponatremia do expect improvement with diuresis ? 05/15/2025; sodium level up to 139 with diuresis 4. Diabetes mellitus type 2 with hyperosmolar nonketotic state ? Patient had acidosis with mild DKA however this could also be explained with patient chronic kidney disease.Patient started on insulin drip ? 05/15/2025; patient glucose levels remain elevated we will continue with adjustments of insulin drip 5. Elevated troponin ? Suspected to be secondary to acute myocardial ischemia from demand ischemia from oxygen mismatch. Patient was started on heparin drip 6. Chronic kidney disease stage IV ? Baseline creatinine has been fluctuating between 2.5-3. monitoring with daily BMPs 7. Anemia ? Secondary to chronic disorder monitoring H&H and transfuse if patient becomes symptomatic or hemoglobin falls below 7 8. Chronic hypoxic respiratory failure ? Patient is on baseline home oxygen. 9. Dyslipidemia ?Zetia 10 mg daily will resume following extubation 10. Tobacco dependence ? Plan is to counseled on cessation once extubated 11. BPH with lower urinary obstructive symptoms - Patient treated with tamsulosin 12. DVT prophylaxis ? SC heparin Time spent in the patient's overall evaluation,decision-making process, review of diagnostic data, adjustment of management, discussion with other providers, nursing nursing and ancillary staff involved in patient's care documentation, 50 minutes Charges/Coding Visit Charges Inpatient E&M: 85863 [facility] Hosp L3
[2025-05-15] MEDS: Pantoprazole Sodium 40 MG in 0.9% Normal Saline (100mL MB+) 100 ML 330 MG IV ×2 (08:06→21:04)
--- NOTE | 2025-05-15 08:26 | PN.CARD_ITS ---
Subjective Subjective Patient's sedation has been withheld this morning. He is scheduled to undergo a weaning trial from the ventilator. The patient remains on FiO2 of 21%. O2 saturations are adequate. Patient's blood pressures been stable off pressors he received 1 dose of hydralazine 50 mg. Renal function is improved slightly BUN 81 creatinine 2.61 GFR 24 which is about his baseline. He is anemic with a hemoglobin of 7.9. The patient does open his eyes to his name but does not follow simple commands he is still sedated. Objective Data Vital Signs: Vital Signs Temp Pulse Resp BP Pulse Ox O2 Del Method O2 Flow Rate 98.1 F 56 L 18 123/50 H 98 Mechanical Ventilator 10 05/15/25 05:00 05/15/25 07:00 05/15/25 07:00 05/15/25 07:00 05/15/25 07:00 05/15/25 07:00 05/13/25 13:30 FiO2 21 05/15/25 07:00 Oxygen Flow Rate (L/min) 10 Oxygen Delivery Method Mechanical Ventilator Weight: 138 lb 10.732 oz Body Mass Index (BMI) 20.9 Intake & Output: Intake and Output for Last 24 Hours 05/13/25 05/14/25 05/15/25 23:59 23:59 23:59 Intake Total 236.86 / 298.84 1371.53 / 1379.53 155.67 / 155.67 Output Total 950 / 950 1500 / 1500 950 / 950 Balance -713.14 / -651.16 -128.47 / -120.47 -794.33 / -794.33 Lab / Micro Data Attestation: I reviewed the patient's lab results. 05/15/25 05:10 05/15/25 05:10 Labs: Laboratory Results - last 24 hr 05/14/25 05:50: b-Hydroxybutyric mmol/L 0.1 05/14/25 06:07: POC Glucose 412 H 05/14/25 06:48: POC Glucose 307 H 05/14/25 08:27: POC Glucose 392 H 05/14/25 09:20: Sodium 136, Potassium 3.3, Chloride 97 L, Carbon Dioxide 21.3, A nion Gap 18 H, BUN 85 H, Creatinine 2.81 H, Estim Creat Clear Calc 18.66 L, Est GFR (MDRD) Non-Af 22 L, BUN/Creatinine Ratio 30.4 H, Glucose 461 H*, Calcium 8.4 05/14/25 10:32: POC Glucose 264 H 05/14/25 12:03: POC Glucose 245 H 05/14/25 13:00: APTT 39.7 H, Sodium 140, Potassium 3.2 L, Chloride 102, Carbon Dioxide 23.3, Anion Gap 15, BUN 86 H, Creatinine 2.75 H, Estim Creat Clear Calc 19.07 L, Est GFR (MDRD) Non-Af 22 L, BUN/Creatinine Ratio 31.1 H, Glucose 234 H, Calcium 8.4 05/14/25 13:23: POC Glucose 202 H 05/14/25 16:37: POC Glucose 132 H 05/14/25 17:47: POC Glucose 101 05/14/25 21:43: APTT 50.6 H 05/14/25 23:33: POC Glucose 268 H 05/15/25 04:59: POC Glucose 284 H 05/15/25 05:10: WBC 7.5, RBC 2.72 L, Hgb 7.9 L, Hct 24.4 L, MCV 89.7, MCH 29.0, MCHC 32.4, RDW Std Deviation 48.1 H, RDW Coeff of Humaira 14.8 H, Plt Count 202, MPV 11.7, Immature Gran % (Auto) 0.400, Neut % (Auto) 81.1 H, Lymph % (Auto) 10.4 L, [place] % (Auto) 8.1, Eos % (Auto) 0.0, Baso % (Auto) 0.0, Absolute Neuts (auto) 6.1, Absolute Lymphs (auto) 0.78 L, Nucleated RBC % 0, APTT Cancelled, Sodium 139, Potassium 3.8, Chloride 102, Carbon Dioxide 21.7, Anion Gap 15, BUN 81 H, C reatinine 2.61 H, Estim Creat Clear Calc 19.75 L, Est GFR (MDRD) Non-Af 24 L, B UN/Creatinine Ratio 31.0 H, Glucose 298 H, Calcium 8.0, Phosphorus 4.8 H, M agnesium 2.5 H 05/15/25 05:24: APTT 83.0 H Micro: Microbiology 05/13/25 16:40 Sputum, Induced/Lukens Gram Stain - Final ABG Data ABG results: ABG 05/15/25 05:30 Specimen Type ART Sample Site R Brach pH 7.51 H Bicarbonate Actual 25.3 Total CO2 26 Base Excess 2 O2 Saturation 92 L O2 % 21.0 ABG pCO2 31.6 L ABG pO2 57 L Chris Test N/A Respiration Rate 18 O2 Delivery Device Adult Vent Vent Mode AC Tidal Volume 400.0 POC PEEP 5 Rhythm Strip Rhythm Strip: Sinus Rhythm Rate: 85 Ectopy: PAC(s) Cardiology Labs/Tests 05/14/25 09:20: Sodium 136, Potassium 3.3, Chloride 97 L, Carbon Dioxide 21.3, A nion Gap 18 H, BUN 85 H, Creatinine 2.81 H, Est GFR (MDRD) Non-Af 22 L, B UN/Creatinine Ratio 30.4 H, Glucose 461 H*, Calcium 8.4 05/14/25 13:00: APTT 39.7 H, Sodium 140, Potassium 3.2 L, Chloride 102, Carbon Dioxide 23.3, Anion Gap 15, BUN 86 H, Creatinine 2.75 H, Est GFR (MDRD) Non-Af 22 L, BUN/Creatinine Ratio 31.1 H, Glucose 234 H, Calcium 8.4 05/14/25 21:43: APTT 50.6 H 05/15/25 05:10: WBC 7.5, RBC 2.72 L, Hgb 7.9 L, Hct 24.4 L, MCV 89.7, MCH 29.0, MCHC 32.4, Plt Count 202, MPV 11.7, Immature Gran % (Auto) 0.400, Neut % (Auto) 81.1 H, Lymph % (Auto) 10.4 L, [place] % (Auto) 8.1, Eos % (Auto) 0.0, Baso % (Auto) 0.0, Absolute Neuts (auto) 6.1, Nucleated RBC % 0, APTT Cancelled, Sodium 139, Potassium 3.8, Chloride 102, Carbon Dioxide 21.7, Anion Gap 15, BUN 81 H, C reatinine 2.61 H, Est GFR (MDRD) Non-Af 24 L, BUN/Creatinine Ratio 31.0 H, G lucose 298 H, Calcium 8.0, Phosphorus 4.8 H, Magnesium 2.5 H 05/15/25 05:24: APTT 83.0 H 05/15/25 05:30: pH 7.51 H, Bicarbonate Actual 25.3, Base Excess 2, O2 Saturation 92 L, ABG pCO2 31.6 L, ABG pO2 57 L, Chris Test N/A Rhythm: EKG: ECHO: Stress Test: Cardiac Cath: PCI: CT Surgery: Holter monitor: EPS: PPM: CXR: Chest CT Scan: Radiography Diagnostic Testing: Radiology Impression Venous Doppler Study 05/13/25 16:02 Interpretation Summary Deep veins of the bilateral lower extremities are patent and compressible segmentally. There is no evidence of bilateral lower extremity deep vein thrombosis. The bilateral great saphenous veins appear patent and compressible segmentally. Ordering Physician: Dyana Hwang Referring Physician: Ryley Montenegro Performed By: Pierce Eaton, RVT Chest X-Ray 05/15/25 03:50 IMPRESSION: Suspected left lung pneumonia, small interval improvement. Reading Location: [place] [id number] Physical Exam Const Constitutional Narrative: Sedation just been discontinued the patient remains intubated and sedated. Responds to his name by opening his eyes but does not follow simple commands HEENT normocephalic Eyes EOMs intact bilaterally Resp Resp Narrative: Intubated with significant rhonchi throughout. Auscultation: rhonchi throughout Cardio Cardio Narrative: Difficult to auscultate due to intubation and diffuse rhonchi. Rate: regular rate Rhythm: abnormal rhythm ectopic beats Heart Sounds: S1 normal and S2 normal; Negative for click, gallop or murmur Extremity General Extremity: edema bilateral lower extremity Details: mild Neuro Neuro Narrative: Sedation just discontinued the patient remains intubated and sedated. Responds to his name by opening his eyes but does not follow simple commands Psych Psych Narrative: Sedation just been discontinued the patient remains intubated and sedated. Responds to his name by opening his eyes but does not follow simple commands Assessment & Plan Assessment/Plan (1) Acute on chronic HFrEF (heart failure with reduced ejection fraction): PLAN: Patient is now off of pressors remains intubated but ventilatory weaning in progress. Patient received hydralazine 50 mg as a one-time dose. Would recommend reinstituting his hydralazine 50 mg 3 times daily and Imdur 30 mg daily as tolerated. Once the blood pressure tolerates this would reinstitute his Coreg titrating up to 25 mg twice daily which was his home dose. The patient continues with aggressive diuresis creatinine has decreased to 2.61 giving him his baseline GFR of 24. The patient has nonrevascularizable triple-vessel coronary artery disease. Will recheck limited echo to evaluate LV function. Given the patient's recurrent acute respiratory failure and his known cardiovascular status and renal issues I recommend consideration for hospice care. (2) Chronic kidney disease: QUALIFIERS: Chronic kidney disease stage: stage 4 (GFR 15-29) Q ualified Code(s): N18.4 - Chronic kidney disease, stage 4 (severe) PLAN: Creatinine is not down to 2.61 given him a GFR 24 which is really about his baseline. (3) Acute on chronic hypoxic respiratory failure: PLAN: Continue with ventilatory support and weaning per the intensive care service. PLAN: Plan 1. Would slowly try to reintroduce the patient's guideline directed medical therapy for heart failure. Would start with hydralazine and Imdur and then proceed to titration of his Coreg back to maximum tolerated dose. 2. Would recommend discussion with the patient's family again concerning hospice given the patient's multisystem organ issues and reintubation within 4 days of discharge from his last hospitalization. Charges/Coding Visit Charges Inpatient E&M: 80442 Subs Hosp L2
[2025-05-15 09:00] LABS: CPK Total, Creatine Kinase 61 U/L (24-195); Triglycerides 142 mg/dL
--- NOTE | 2025-05-15 10:32 | CASEMGMT ---
FIDEL VALENCIA Readmission Chart Review Index: 05/05-. Dx: AE CHF, AE COPD, PNA, Leukocytosis Current: 05/13. Dx: RF, HF Exacerbation, Hyperglycemia From the index admission, the patient was discharged home with his with skilled home healthcare through [facility] (SN & PT), a new Palliative care referral, and home oxygen supplied through [employer] at 3 L with exertion. The patient was prescribed prednisone. The patient was to follow up with pulmonary medicine on the . The patient was advised to follow a fluid-restricted diet. The patient presents to [facility] ER again with dyspnea. Unfortunately, the patient required intubation due to worsening respiratory status. The patient was subsequently transferred to the ICU for further management. FIDEL VALENCIA to the patient room at this time. Patient?s , Alice, at the bedside. Alice states that the patient was able to take his new prescription and all of his medications as ordered. Alice states that the home healthcare was able to provide healthcare for the patient at home. Alice states that the patient was wearing his oxygen accordingly. Alice also states that they were checking the patient?s blood sugar levels four times per day and caring for his diabetes appropriately. Alice states that they were aware of the fluid-restricted diet and that the patient adhered to that. Noted that the patient has a history of tobacco abuse. This RN CM inquired about this. The patient's states that the patient has not smoked cigarettes in over a month now. Patient's states that the patient was smoking about a half pack a day. Moving forward, the plan is TBD. Anticipate SNF versus return home with the continuation of home healthcare, updated oxygen needs, palliative care, and follow up with pulmonary medicine as well as cardiology, as recommended. Patient's declines any further questions or concerns at this time. CM to follow. Britton WHITE RN, CM
[2025-05-15] MEDS: HEPARIN/D5w 25,000 UNITS 25,000 UNITS/250 ML IV.SOLN. 8 UNITS CONT INF (10:41)
[2025-05-15] MEDS: 0.9% Saline Lock 10 ML Syringe IV ×3 (10:56→23:51)
[2025-05-15] MEDS: Chlorhexidine 15 ML PO ×2 (12:05→21:06)
[2025-05-15 14:11] LABS: Partial Thromboplast Time 49.1 Seconds (24.1-36.2)
[2025-05-15 20:52] LABS: Partial Thromboplast Time 93.8 Seconds (24.1-36.2)
[2025-05-15] MEDS: 0.9% Normal Saline (250mL Bag) 250 ML 15 ML IV (21:04)
[2025-05-15] MEDS: Insulin Glargine-YFGN 100 UNIT/ML Pen 15 UNIT SC (21:04)
[2025-05-16] VITALS (27 sets, daily range): BP systolic 122–182; BP diastolic 45–77; PULSE 55–80; RESP 10–21; TEMP 36.4–37.3; O2SAT 88–95; BMI 19.6
[2025-05-16 04:35] LABS: Hematocrit 27.5 % (40-54); Hemoglobin 9.1 g/dL (13.0-16.5); Immature Granulocytes Count 0.050 X10^3/uL (0.0-0.0); Mean Corp Hgb Conc 33.1 g/dL (32-36); Mean Corpuscular Volume 88.4 fL (80-94); Mean Platelet Vol. 11.2 fl (6.2-12.0); NRBC Flagged by Analyzer 0 % (0-5); Platelet Count 266 K/mm3 (150-450); RBC Distribution Width CV 14.8 % (11.6-14.6); RBC Distribution Width SD 47.6 fl (35.1-43.9); Red Blood Count 3.11 M/mm3 (4.6-6.2); White Blood Count 10.2 K/mm3 (4.4-11.0)
[2025-05-16 04:44] LABS: Partial Thromboplast Time 50.9 Seconds (24.1-36.2)
[2025-05-16 04:59] LABS: Anion Gap 14 (5-15); BUN 81 mg/dL (4-19); BUN/Creat Ratio 32.1 RATIO (10-20); Calcium,Total 8.6 mg/dL (7.6-11.0); Carbon Dioxide 25.6 mmol/L (21.0-32.0); Chloride 101 mmol/L (98-108); Estimated Creatinine Clearance 20.54 ml/min (50-250); Glucose 132 mg/dL (70-99); Potassium 3.1 mmol/L (3.3-5.1)
[2025-05-16] MEDS: Potassium Chloride Oral Soln 20 MEQ/15 ML UDC PO (05:48)
[2025-05-16] MEDS: Potassium Chloride Oral Soln 20 MEQ/15 ML UDC 40 MEQ PO (05:49)
--- NOTE | 2025-05-16 07:19 | PCM.PN.HOSP ---
Reason for Visit Chief Complaint: Dyspnea, respiratory distress. Subjective Subjective Patient seen still remains on the vent. Per nursing staff patient has been having apneic episodes. Case discussed with Dr. Fagan plan was to obtain CT of the head Objective Data Objective Data Vital Signs: Vital Signs Temp Pulse Resp BP Pulse Ox O2 Del Method O2 Flow Rate 98.3 F 66 10 L 155/45 H 93 Mechanical Ventilator 10 05/16/25 04:00 05/16/25 07:11 05/16/25 07:11 05/16/25 06:00 05/16/25 07:11 05/16/25 06:00 05/13/25 13:30 FiO2 21 05/16/25 07:07 Oxygen Flow Rate (L/min) 10 Oxygen Delivery Method Mechanical Ventilator Weight: 58.8 kg Body Mass Index (BMI) 19.6 Intake & Output: Intake and Output for Last 24 Hours 05/14/25 05/15/25 05/16/25 23:59 23:59 23:59 Intake Total 1371.53 / 1379.53 875.09 / 875.09 54.32 / 54.32 Output Total 1500 / 1500 4775 / 4775 1000 / 1000 Balance -128.47 / -120.47 -3899.91 / -3899.91 -945.68 / -945.68 Lab / Micro Data 05/16/25 04:25 05/16/25 04:25 Labs: Laboratory Results - last 24 hr 05/15/25 05:10: Total Creatine Kinase 61, Triglycerides 142 05/15/25 11:59: POC Glucose 219 H 05/15/25 13:30: APTT 49.1 H 05/15/25 17:14: POC Glucose 164 H 05/15/25 20:25: APTT 93.8 H* 05/15/25 21:01: POC Glucose 157 H 05/15/25 23:49: POC Glucose 142 H 05/16/25 04:25: WBC 10.2, RBC 3.11 L, Hgb 9.1 L, Hct 27.5 L, MCV 88.4, MCH 29.3, MCHC 33.1, RDW Std Deviation 47.6 H, RDW Coeff of Humaira 14.8 H, Plt Count 266, MPV 11.2, Immature Gran % (Auto) 0.500, Neut % (Auto) 85.3 H, Lymph % (Auto) 7.1 L, Ellis % (Auto) 7.0, Eos % (Auto) 0.1, Baso % (Auto) 0.0, Absolute Neuts (auto) 8.7 H, Absolute Lymphs (auto) 0.72 L, Nucleated RBC % 0, APTT 50.9 H, Sodium 141, Potassium 3.1 L, Chloride 101, Carbon Dioxide 25.6, Anion Gap 14, BUN 81 H, Creatinine 2.51 H, Estim Creat Clear Calc 20.54 L, Est GFR (MDRD) Non-Af 25 L, BUN/Creatinine Ratio 32.1 H, Glucose 132 H, Calcium 8.6 05/16/25 05:05: POC Glucose 117 H Micro: Microbiology 05/13/25 13:47 Blood Culture (Wb) - Left Forearm Blood Culture - Preliminary No growth in 48 hours. 05/13/25 13:47 Blood Culture (Wb) - Left Wrist Blood Culture - Preliminary No growth in 48 hours. 05/13/25 16:40 Sputum, Induced/Lukens Gram Stain - Final 05/13/25 16:40 Sputum, Induced/Lukens Respiratory Culture - Preliminary Appears to be normal respiratory kyler. Further studies to follow. 05/13/25 18:24 Urine, Clean Catch Urine Culture - Preliminary Culture exhibits no growth. 05/13/25 16:40 Mucosa - Nasopharyngeal Respiratory Panel (PCR) - Final 05/13/25 13:47 Mucosa - Nose SARS-CoV-2, Influenza & RSV (PCR) - Final Radiography Diagnostic Testing: Radiology Impression Echocardiogram 05/14/25 16:02 Interpretation Summary Mild concentric left ventricular hypertrophy. Generalized LV hypokinesis. Severe inferior and septal hypokinesis. Estimated LVEF 30%. At least stage I diastolic dysfunction. Severe mitral annular calcification. Ordering Physician: Breezy Campbell Performed By: Fiordaliza Edgar RDCS and Student Rhythm Strip Rhythm Strip: Sinus Rhythm Rate: 85 Ectopy: PAC(s) Physical Exam Narrative GENERAL: Awake on the vent HEENT: Atraumatic; normocephalic EYES; Anicteric, Normal Conjunctiva NECK; supple, normal thyroid, RESPIRATORY: Diminished to auscultation CARDIOVASCULAR: Regular S1 S2, GI: soft, normoactive bowel sounds, : No Renal angle tenderness; EXTREMITIES: No edema, no clubbing, MUSCULOSKELETAL: no muscle wasting NEURO: no lateralizing signs. SKIN: No Rash PSYCH; Flat affect Assessment & Plan Assessment/Plan (1) Acute on chronic HFrEF (heart failure with reduced ejection fraction): PLAN: Plan Patient is an 79-year-old gentleman with history of chronic hypoxic respiratory failure who presented with progressive shortness of breath. . An assessment of acute hypoxic respiratory failure made admitted to a monitored bed for further management. Patient was initially managed with noninvasive ventilation BiPAP however respiratory status deteriorated resulting in patient being intubated 1. Acute hypoxic respiratory failure ? Secondary to flash acute on chronic congestive heart failure as well as COPD with acute exacerbation. Patient was initially managed on noninvasive ventilation via BiPAP admitted to the intensive care unit for further management. Respiratory status deteriorated resulting in patient being intubated. Consult subsequently placed to completion engineer/financial planning assistant for vent management 05/15/2025; patient currently undergoing weaning trial ? 05/16/2025; patient continues to fail weaning trial. Per nursing staff patient has apneic episodes and plan is to obtain CT of the head 2. Acute on chronic congestive heart failure with reduced ejection fraction 2D echo from 09/13/2024 demonstrate left ventricular systolic function is normal. The left ventricular ejection fraction is 60 %. There is moderate to severe mitral annular calcification. Pulmonary artery systolic pressure is 51 mmHg.Patient was managed with diuretic therapy in addition to patient being intubated ? 05/15/2025; patient responding to diuretic therapy ? 05/16/2020 five 2D echo obtain on 05/14/2025 Mild concentric left ventricular hypertrophy. Generalized LV hypokinesis. Severe inferior and septal hypokinesis. Estimated LVEF 30%. At least stage I diastolic dysfunction. Severe mitral annular calcification. Patient continues to diurese well and is net negative fluid balance of 4 L over the past 24 3. Hyponatremia ? Secondary to hypervolemic hyponatremia do expect improvement with diuresis ? 05/15/2025; sodium level up to 139 with diuresis 4. Diabetes mellitus type 2 with hyperosmolar nonketotic state ? Patient had acidosis with mild DKA however this could also be explained with patient chronic kidney disease.Patient started on insulin drip ? 05/15/2025; patient glucose levels remain elevated we will continue with adjustments of insulin drip 5. Elevated troponin ? Suspected to be secondary to acute myocardial ischemia from demand ischemia from oxygen mismatch. Patient was started on heparin drip 6. Chronic kidney disease stage IV ? Baseline creatinine has been fluctuating between 2.5-3. monitoring with daily BMPs 7. Anemia ? Secondary to chronic disorder monitoring H&H and transfuse if patient becomes symptomatic or hemoglobin falls below 7 8. Chronic hypoxic respiratory failure ? Patient is on baseline home oxygen. 9. Dyslipidemia ?Zetia 10 mg daily will resume following extubation 10. Tobacco dependence ? Plan is to counseled on cessation once extubated 11. BPH with lower urinary obstructive symptoms - Patient treated with tamsulosin 12. DVT prophylaxis ? SC heparin Time spent in the patient's overall evaluation,decision-making process, review of diagnostic data, adjustment of management, discussion with other providers, nursing nursing and ancillary staff involved in patient's care; 52 minutes Charges/Coding Visit Charges Inpatient E&M: 21869 Subs Hosp L3
[2025-05-16 07:32] LABS: Allen Test Positive; Base Excess 8 mmol/L (-2 to +2); FI02 21.0; PEEP 5; PO2 70 mmHG (75-100); RR 14; SITE L Radial; SO2 96 % (95-99)
[2025-05-16] MEDS: Chlorhexidine 15 ML PO (07:38)
--- NOTE | 2025-05-16 07:39 | PCM.PN.INT ---
Assessment & Plan Assessment/Plan (1) Acute on chronic HFrEF (heart failure with reduced ejection fraction): (2) Acute hypoxic respiratory failure: PLAN: Plan RECOMMENDATIONS: 1. Proceed with terminal extubation and initiation of comfort care measures, per family request. 2. Continue scheduled bronchodilators. 3. Continue basal and sliding scale insulin coverage. 4. If the patient remains clinically stable tomorrow following extubation, he can be transferred to inpatient hospice care. IMPRESSIONS: 1. Acute hypoxemic respiratory failure Clinical concern for multifactorial etiology with possible COPD exacerbation along with CHF exacerbation contributing. However, I do feel that is far more likely that the patient's main issue at presentation was decompensated heart failure, given his interval improvement in his oxygenation status with aggressive diuresis. The patient has known triple-vessel coronary disease and is not a surgical candidate. His ejection fraction is notably depressed at 30%. The patient has been optimized from a volume perspective but continues to fail spontaneous breathing trials. Following a discussion with cardiology, recommend initiation of comfort care measures. This was discussed with the patient's and daughter at the bedside this morning, both of whom are in agreement. 2. Chronic tobacco dependency Tobacco cessation is strongly advised. Recommend outpatient pulmonary follow-up and PFTs after discharge. 3. Elevated troponin likely secondary to demand ischemia in the setting of #1 Continue current supportive care. Cardiology is following to assist with medical management. 4. Hyperglycemia Most likely secondary to HHS. Continue basal and sliding scale insulin coverage. 5. History of chronic kidney disease/anemia/hypertension/hyperlipidemia/diabetes mellitus/coronary artery disease Complicates care, management, recovery and prognosis. Continue home medications as indicated. CODE status: Discussed CODE status at length including difference between FULL code, DNR-CCA and DNR-CC status. Following discussions about the differences in these status, patient's family requested DNR comfort care CODE STATUS. TIME: 40 minutes of critical care time, independent of procedures, was spent addressing the patient's acute hypoxemic respiratory failure, history of tobacco dependency, elevated troponin, hyperglycemia, review of all data and collaboration with the care team. Subjective Subjective The patient was seen and examined at the bedside this morning. Events from the last 24 hours have been reviewed. The patient is currently afebrile hemodynamically stable. He is maintaining appropriate oxygen saturations on assist-control mode mechanical ventilation with an FiO2 requirement of 21%. The patient is documented to be overall net -5.6 L for the hospitalization. While he will open his eyes to verbal cues, he did not follow simple commands for me this morning. He remains off of all forms of sedation. White blood cell count is normal. Hemoglobin and platelet count are stable. ABG was notable for a pH of 7.56 with a PCO2 of 34 and PO2 of 70. Chemistry profile was notable for a creatinine of 2.5 with a potassium of 3.1. This morning, when placed on a spontaneous breathing trial, the patient again became apneic, necessitating the resumption of assist-control mode mechanical ventilation. I did meet personally this morning with the patient's and daughter at the bedside regarding prognosis and overall goals of care. Given the patient's underlying cardiac condition and the fact that he is not a surgical candidate, they were both in agreement to proceed with terminal extubation and initiation of comfort care measures. Objective Data Objective Data The patient's most recent lab work, culture data and imaging studies have all been personally reviewed. Surface echocardiogram from April 2025 demonstrated mild to distal hypokinesis of the LV with an ejection fraction of 40% and stage I diastolic dysfunction. Moderate mitral valve insufficiency was noted. Right ventricular systolic pressure was estimated to be 41 mmHg. Blood, urine and sputum cultures have not demonstrated any growth to date. Vital Signs: Vital Signs Temp Pulse Resp BP Pulse Ox O2 Del Method O2 Flow Rate 98.3 F 66 10 L 155/45 H 93 Mechanical Ventilator 10 05/16/25 04:00 05/16/25 07:11 05/16/25 07:11 05/16/25 06:00 05/16/25 07:11 05/16/25 06:00 05/13/25 13:30 FiO2 21 05/16/25 07:07 Oxygen Flow Rate (L/min) 10 Oxygen Delivery Method Mechanical Ventilator Weight: 129 lb 10.109 oz Body Mass Index (BMI) 19.6 Intake & Output: Intake and Output for Last 24 Hours 05/14/25 05/15/25 05/16/25 23:59 23:59 23:59 Intake Total 1371.53 / 1379.53 875.09 / 875.09 54.32 / 54.32 Output Total 1500 / 1500 4775 / 4775 1000 / 1000 Balance -128.47 / -120.47 -3899.91 / -3899.91 -945.68 / -945.68 Lab / Micro Data Attestation: I reviewed the patient's lab results. 05/16/25 04:25 05/16/25 04:25 Labs: Laboratory Results - last 24 hr 05/15/25 05:10: Total Creatine Kinase 61, Triglycerides 142 05/15/25 11:59: POC Glucose 219 H 05/15/25 13:30: APTT 49.1 H 05/15/25 17:14: POC Glucose 164 H 05/15/25 20:25: APTT 93.8 H* 05/15/25 21:01: POC Glucose 157 H 05/15/25 23:49: POC Glucose 142 H 05/16/25 04:25: WBC 10.2, RBC 3.11 L, Hgb 9.1 L, Hct 27.5 L, MCV 88.4, MCH 29.3, MCHC 33.1, RDW Std Deviation 47.6 H, RDW Coeff of Humaira 14.8 H, Plt Count 266, MPV 11.2, Immature Gran % (Auto) 0.500, Neut % (Auto) 85.3 H, Lymph % (Auto) 7.1 L, Florence % (Auto) 7.0, Eos % (Auto) 0.1, Baso % (Auto) 0.0, Absolute Neuts (auto) 8.7 H, Absolute Lymphs (auto) 0.72 L, Nucleated RBC % 0, APTT 50.9 H, Sodium 141, Potassium 3.1 L, Chloride 101, Carbon Dioxide 25.6, Anion Gap 14, BUN 81 H, Creatinine 2.51 H, Estim Creat Clear Calc 20.54 L, Est GFR (MDRD) Non-Af 25 L, BUN/Creatinine Ratio 32.1 H, Glucose 132 H, Calcium 8.6 05/16/25 05:05: POC Glucose 117 H Micro: Microbiology 05/13/25 13:47 Blood Culture (Wb) - Left Forearm Blood Culture - Preliminary No growth in 48 hours. 05/13/25 13:47 Blood Culture (Wb) - Left Wrist Blood Culture - Preliminary No growth in 48 hours. 05/13/25 16:40 Sputum, Induced/Lukens Gram Stain - Final 05/13/25 16:40 Sputum, Induced/Lukens Respiratory Culture - Preliminary Appears to be normal respiratory kyler. Further studies to follow. 05/13/25 18:24 Urine, Clean Catch Urine Culture - Preliminary Culture exhibits no growth. 05/13/25 16:40 Mucosa - Nasopharyngeal Respiratory Panel (PCR) - Final 05/13/25 13:47 Mucosa - Nose SARS-CoV-2, Influenza & RSV (PCR) - Final ABG Data ABG results: ABG 05/16/25 07:29 Specimen Type ART Sample Site L Radial pH 7.56 H Bicarbonate Actual 30.5 H Total CO2 32 Base Excess 8 H O2 Saturation 96 O2 % 21.0 ABG pCO2 34.2 L ABG pO2 70 L Chris Test Positive Respiration Rate 14 O2 Delivery Device Adult Vent Vent Mode AC Tidal Volume 400.0 POC PEEP 5 Radiography Diagnostic Testing: Radiology Impression Echocardiogram 05/14/25 16:02 Interpretation Summary Mild concentric left ventricular hypertrophy. Generalized LV hypokinesis. Severe inferior and septal hypokinesis. Estimated LVEF 30%. At least stage I diastolic dysfunction. Severe mitral annular calcification. Ordering Physician: Breezy Campbell Performed By: Fiordaliza Edgar RDCS and Student Rhythm Strip Rhythm Strip: Sinus Rhythm Rate: 85 Ectopy: PAC(s) Physical Exam Const Constitutional Narrative: Remains intubated and mechanically ventilated. Remains off of all forms of sedation. HEENT normocephalic and head/scalp atraumatic Mouth: endotracheal tube in place and OG tube in place Eyes PERRL, EOMs intact bilaterally and conjunctivae normal Neck supple General: trachea midline Chest inspection of chest normal Resp Auscultation: rhonchi and diminished lung sounds; Negative for rales or wheezes Cardio regular rate and regular rhythm GI normal to inspection, nondistended, normoactive bowel sounds Extremity General Extremity: edema bilateral lower extremity; Negative for clubbing Skin no rashes or lesions noted Neuro Neuro Narrative: Will open eyes to verbal cues but will not follow any commands. Charges/Coding Procedures Hospitalists Procedures: 25797 Critical Care 1st Hr
[2025-05-16] MEDS: Pantoprazole Sodium 40 MG in 0.9% Normal Saline (100mL MB+) 100 ML 330 MG IV (07:51)
--- NOTE | 2025-05-16 08:17 | PCM.PN.CARD ---
Subjective Subjective Patient remains intubated. He has had to vent weaning trials and becomes apneic with both. FiO2 remains at 21%. Echocardiogram limited shows that his EF has dropped from 40% in April 2020 to 30% at this time in a global fashion. The patient does have known triple-vessel coronary disease that is not amenable to revascularization per his power and recovery superintendent Dr. Terrazas in [place]. Blood pressure and heart rate are now tolerating his guideline directed medical therapy it is being reinstituted hydralazine 50 mg 3 times daily was given over the last 24 hours he received 1 dose of Coreg 25 mg last evening. Blood pressure and heart rate remained in the 150 systolic range with a heart rate of 64 in sinus rhythm. Will add nitrates to the hydralazine for his afterload reduction therapy as his blood pressure tolerates. Objective Data Vital Signs: Vital Signs Temp Pulse Resp BP Pulse Ox O2 Del Method O2 Flow Rate 98.3 F 66 10 L 155/45 H 93 Mechanical Ventilator 10 05/16/25 04:00 05/16/25 07:11 05/16/25 07:11 05/16/25 06:00 05/16/25 07:11 05/16/25 06:00 05/13/25 13:30 FiO2 21 05/16/25 07:07 Oxygen Flow Rate (L/min) 10 Oxygen Delivery Method Mechanical Ventilator Weight: 129 lb 10.109 oz Body Mass Index (BMI) 19.6 Intake & Output: Intake and Output for Last 24 Hours 05/14/25 05/15/25 05/16/25 23:59 23:59 23:59 Intake Total 1371.53 / 1379.53 875.09 / 875.09 54.32 / 54.32 Output Total 1500 / 1500 4775 / 4775 1000 / 1000 Balance -128.47 / -120.47 -3899.91 / -3899.91 -945.68 / -945.68 Lab / Micro Data Attestation: I reviewed the patient's lab results. 05/16/25 04:25 05/16/25 04:25 Labs: Laboratory Results - last 24 hr 05/15/25 05:10: Total Creatine Kinase 61, Triglycerides 142 05/15/25 11:59: POC Glucose 219 H 05/15/25 13:30: APTT 49.1 H 05/15/25 17:14: POC Glucose 164 H 05/15/25 20:25: APTT 93.8 H* 05/15/25 21:01: POC Glucose 157 H 05/15/25 23:49: POC Glucose 142 H 05/16/25 04:25: WBC 10.2, RBC 3.11 L, Hgb 9.1 L, Hct 27.5 L, MCV 88.4, MCH 29.3, MCHC 33.1, RDW Std Deviation 47.6 H, RDW Coeff of Humaira 14.8 H, Plt Count 266, MPV 11.2, Immature Gran % (Auto) 0.500, Neut % (Auto) 85.3 H, Lymph % (Auto) 7.1 L, Nicholas % (Auto) 7.0, Eos % (Auto) 0.1, Baso % (Auto) 0.0, Absolute Neuts (auto) 8.7 H, Absolute Lymphs (auto) 0.72 L, Nucleated RBC % 0, APTT 50.9 H, Sodium 141, Potassium 3.1 L, Chloride 101, Carbon Dioxide 25.6, Anion Gap 14, BUN 81 H, Creatinine 2.51 H, Estim Creat Clear Calc 20.54 L, Est GFR (MDRD) Non-Af 25 L, BUN/Creatinine Ratio 32.1 H, Glucose 132 H, Calcium 8.6 05/16/25 05:05: POC Glucose 117 H Micro: Microbiology 05/13/25 13:47 Blood Culture (Wb) - Left Forearm Blood Culture - Preliminary No growth in 48 hours. 05/13/25 13:47 Blood Culture (Wb) - Left Wrist Blood Culture - Preliminary No growth in 48 hours. 05/13/25 16:40 Sputum, Induced/Lukens Gram Stain - Final 05/13/25 16:40 Sputum, Induced/Lukens Respiratory Culture - Preliminary Appears to be normal respiratory kyler. Further studies to follow. 05/13/25 18:24 Urine, Clean Catch Urine Culture - Preliminary Culture exhibits no growth. ABG Data ABG results: ABG 05/16/25 07:29 Specimen Type ART Sample Site L Radial pH 7.56 H Bicarbonate Actual 30.5 H Total CO2 32 Base Excess 8 H O2 Saturation 96 O2 % 21.0 ABG pCO2 34.2 L ABG pO2 70 L Chris Test Positive Respiration Rate 14 O2 Delivery Device Adult Vent Vent Mode AC Tidal Volume 400.0 POC PEEP 5 Rhythm Strip Rhythm Strip: Sinus Rhythm Rate: 64 Ectopy: PAC(s) Cardiology Labs/Tests 05/15/25 05:10: Triglycerides 142 05/15/25 13:30: APTT 49.1 H 05/15/25 20:25: APTT 93.8 H* 05/16/25 04:25: WBC 10.2, RBC 3.11 L, Hgb 9.1 L, Hct 27.5 L, MCV 88.4, MCH 29.3, MCHC 33.1, Plt Count 266, MPV 11.2, Immature Gran % (Auto) 0.500, Neut % (Auto) 85.3 H, Lymph % (Auto) 7.1 L, Nicholas % (Auto) 7.0, Eos % (Auto) 0.1, Baso % (Auto) 0.0, Absolute Neuts (auto) 8.7 H, Nucleated RBC % 0, APTT 50.9 H, Sodium 141, Potassium 3.1 L, Chloride 101, Carbon Dioxide 25.6, Anion Gap 14, BUN 81 H, Creatinine 2.51 H, Est GFR (MDRD) Non-Af 25 L, BUN/Creatinine Ratio 32.1 H, Glucose 132 H, Calcium 8.6 05/16/25 07:29: pH 7.56 H, Bicarbonate Actual 30.5 H, Base Excess 8 H, O2 Saturation 96, ABG pCO2 34.2 L, ABG pO2 70 L, Chris Test Positive Rhythm: EKG: ECHO: Stress Test: Cardiac Cath: PCI: CT Surgery: Holter monitor: EPS: PPM: CXR: Chest CT Scan: Radiography Diagnostic Testing: Radiology Impression Echocardiogram 05/14/25 16:02 Interpretation Summary Mild concentric left ventricular hypertrophy. Generalized LV hypokinesis. Severe inferior and septal hypokinesis. Estimated LVEF 30%. At least stage I diastolic dysfunction. Severe mitral annular calcification. Ordering Physician: Breezy Campbell Performed By: Fiordaliza Edgar RDCS and Student Physical Exam Const Constitutional Narrative: Lethargic but arousable follows simple commands slowly. HEENT normocephalic Eyes EOMs intact bilaterally Neck Neck Narrative: Endotracheal tube in place. Resp Resp Narrative: Patient remains on ventilator he is no longer sedated. Cardio Cardio Narrative: Distant heart tones Rate: regular rate Rhythm: regular rhythm Heart Sounds: S1 normal and S2 normal; Negative for click, gallop or murmur GI normal to inspection, nondistended, normoactive bowel sounds Extremity General Extremity: edema bilateral lower extremity Details: mild Neuro Neuro Narrative: Lethargic but arousable slowly follows simple commands. Assessment & Plan Assessment/Plan (1) Acute on chronic HFrEF (heart failure with reduced ejection fraction): PLAN: Patient's blood pressure and heart rate are now tolerating reinstitution of his guideline directed medical therapy for his heart failure. Patient has received hydralazine 50 mg 3 times daily over the last 24 hours. He also received his first dose of Coreg 25 mg p.o. yesterday. I would recommend we add his nitrates as Imdur 30 mg. Currently has meds are being provided down an NG tube. The patient has continued to diurese well his renal function has improved back to his baseline GFR of 20?25. Echocardiogram did show that he has had a further drop in his global LV function EF is now 30% it was 40% back in April 2025 it was normal a year ago. This is consistent with his known triple-vessel coronary artery disease which is deemed not amenable to revascularization either surgically or percutaneously. I would recommend titration of his guideline directed medical therapy back to his full dose he was on in his home environment and continued diuresis with Lasix. Once extubated and if the patient recovers the patient should be followed up by his primary power and recovery superintendent Dr. Terrazas in [place]. Consideration should be given for hospice care in the interim. (2) Acute on chronic hypoxic respiratory failure: PLAN: Patient remains intubated due to apneic spells with ventilator weaning trials. Further treatment and management per the intensive care team. (3) Chronic kidney disease: QUALIFIERS: Chronic kidney disease stage: stage 4 (GFR 15-29) Qualified Code(s): N18.4 - Chronic kidney disease, stage 4 (severe) PLAN: Patient's renal function seems to have stabilized I's and O's remain negative. Baseline GFR runs 20?25. His GFR today is 25. PLAN: Plan 1. Reinstitute Imdur 30 mg daily down the GT tube as tolerated. 2. Continue with guideline directed medical therapy for his LV dysfunction as blood pressure and heart rate will tolerate. 3. Cardiology will sign off at this time if further assistance needed please reconsult the [facility]. Charges/Coding Visit Charges Inpatient E&M: 15956 Subs Hosp L2
[2025-05-16 08:38] LABS: Ammonia 23.5 umol/L (16-60)
[2025-05-16] MEDS: Lorazepam 2 MG/ML WCH Syringe IV (11:47)
--- NOTE | 2025-05-16 16:07 | CHAPLAIN ---
Type of Pastoral Visit _x__ Initial Visit ___ Follow-up Visit ___ On-call Visit ___ General Patient Visit ___ Spiritual Assessment ___ Family Conference _x__ Bereavement ___ Rapid Response ___ Code Blue ___ Other (describe below) Pastoral Care Referral From ___ Patient ___ Family _x__ Nurse ___ Physician ___ Avionics Safety Inspector ___ Barge Worker ___ Other (describe below) Sacrament/Intervention _x__ Active listening ___ Anointing ___ Scientologist _x__ Bereavement ___ Communion _x__ Amber exploration ___ _x__ Life review _x__ Prayer ___ Reconciliation ___ Sacrament of Sick _x__ Supportive presence ___ Wedding ___ Other (describe below) Pastoral Comments patient was extubated earlier today and is expected to pass away; spouse and daughter are in the room; pt is not responsive; pt has been seen in past visits; offer of support and presence is well received by family; family indicates that they are at peace with the decisions made and want the patient to have comfort care; family expresses that patient has amber and will be at peace eternally which comforts them; this can worker gives a lap blanket made by volunteers for this purpose and family is emotionally moved and grateful; family welcomes a time of prayer at bedside; some life review is given and listening to family stories takes place
[2025-05-16] MEDS: 0.9% Saline Lock 10 ML Syringe IV (22:58)
[2025-05-17] MEDS: Lorazepam 2 MG/ML WCH Syringe IV ×2 (02:06→17:53)
[2025-05-17 05:23] VITALS: BMI 19.5
[2025-05-17 07:48] VITALS: BP 166/56; PULSE 71; RESP 24; TEMP 37.4
[2025-05-17 07:51] VITALS: PULSE 80
[2025-05-17] MEDS: 0.9% Saline Lock 10 ML Syringe IV ×3 (08:17→17:53)
--- NOTE | 2025-05-17 08:58 | PCM.PN.HOSP ---
Reason for Visit Chief Complaint: Dyspnea, respiratory distress. Subjective Subjective The patient was terminally weaned off the vent the day prior comfort measures initiated. Transferred from the ICU to [facility] floor. Patient currently awaiting evaluation by hospice with plans for patient to be transferred to hospice in the medical facility Objective Data Objective Data Vital Signs: Vital Signs Temp Pulse Resp BP Pulse Ox O2 Del Method O2 Flow Rate 99.3 F H 80 24 H 166/56 H 91 Nasal Cannula 2 05/17/25 07:48 05/17/25 07:51 05/17/25 07:48 05/17/25 07:48 05/16/25 23:02 05/17/25 07:51 05/17/25 07:51 FiO2 21 05/16/25 11:30 Oxygen Flow Rate (L/min) 2 Oxygen Delivery Method Nasal Cannula Weight: 58.7 kg Body Mass Index (BMI) 19.5 Intake & Output: Intake and Output for Last 24 Hours 05/15/25 05/16/25 05/17/25 23:59 23:59 23:59 Intake Total 875.09 / 875.09 347.45 / 347.45 Output Total 4775 / 4775 1500 / 1750 500 / 500 Balance -3899.91 / -3899.91 -1152.55 / -1402.55 -500 / -500 Lab / Micro Data 05/16/25 04:25 05/16/25 04:25 Micro: Microbiology 05/13/25 16:40 Sputum, Induced/Lukens Gram Stain - Final 05/13/25 16:40 Sputum, Induced/Lukens Respiratory Culture - Final Mixed normal respiratory kyler. No Streptococcus pneumoniae, beta-hemolytic Streptococcus or Staphylococcus aureus isolated. 05/13/25 18:24 Urine, Clean Catch Urine Culture - Final Culture exhibits no growth. 05/13/25 13:47 Blood Culture (Wb) - Left Forearm Blood Culture - Preliminary No growth in 48 hours. 05/13/25 13:47 Blood Culture (Wb) - Left Wrist Blood Culture - Preliminary No growth in 48 hours. 05/13/25 16:40 Mucosa - Nasopharyngeal Respiratory Panel (PCR) - Final 05/13/25 13:47 Mucosa - Nose SARS-CoV-2, Influenza & RSV (PCR) - Final Rhythm Strip Rhythm Strip: Sinus Rhythm Rate: 64 Ectopy: PAC(s) Physical Exam Narrative GENERAL: Lethargic HEENT: Atraumatic; normocephalic EYES; Anicteric, Normal Conjunctiva NECK; supple, normal thyroid, RESPIRATORY: Diminished to auscultation CARDIOVASCULAR: Regular S1 S2, GI: soft, normoactive bowel sounds, : No Renal angle tenderness; EXTREMITIES: No edema, no clubbing, MUSCULOSKELETAL: no muscle wasting NEURO: no lateralizing signs. SKIN: No Rash PSYCH; unable to assess Assessment & Plan Assessment/Plan (1) Acute on chronic HFrEF (heart failure with reduced ejection fraction): PLAN: Plan Patient is an 79-year-old gentleman with history of chronic hypoxic respiratory failure who presented with progressive shortness of breath. . An assessment of acute hypoxic respiratory failure made admitted to a monitored bed for further management. Patient was initially managed with noninvasive ventilation BiPAP however respiratory status deteriorated resulting in patient being intubated 1. Acute hypoxic respiratory failure ? Secondary to flash acute on chronic congestive heart failure as well as COPD with acute exacerbation. Patient was initially managed on noninvasive ventilation via BiPAP admitted to the intensive care unit for further management. Respiratory status deteriorated resulting in patient being intubated. Consult subsequently placed to orientation and mobility specialist/magnetic tester for vent management 05/15/2025; patient currently undergoing weaning trial ? 05/16/2025; patient continues to fail weaning trial. Per nursing staff patient has apneic episodes and plan is to obtain CT of the head ? 05/17/2025; patient was terminally weaned off the vent after discussion with family. Transferred from the intensive care unit to [facility] floor. 2. Acute on chronic congestive heart failure with reduced ejection fraction 2D echo from 09/13/2024 demonstrate left ventricular systolic function is normal. The left ventricular ejection fraction is 60 %. There is moderate to severe mitral annular calcification. Pulmonary artery systolic pressure is 51 mmHg.Patient was managed with diuretic therapy in addition to patient being intubated ? 05/15/2025; patient responding to diuretic therapy ? 05/16/2020 five 2D echo obtain on 05/14/2025 Mild concentric left ventricular hypertrophy. Generalized LV hypokinesis. Severe inferior and septal hypokinesis. Estimated LVEF 30%. At least stage I diastolic dysfunction. Severe mitral annular calcification. Patient continues to diurese well and is net negative fluid balance of 4 L over the past 24 3. Hyponatremia ? Secondary to hypervolemic hyponatremia do expect improvement with diuresis ? 05/15/2025; sodium level up to 139 with diuresis 4. Diabetes mellitus type 2 with hyperosmolar nonketotic state ? Patient had acidosis with mild DKA however this could also be explained with patient chronic kidney disease.Patient started on insulin drip ? 05/15/2025; patient glucose levels remain elevated we will continue with adjustments of insulin drip 5. Elevated troponin ? Suspected to be secondary to acute myocardial ischemia from demand ischemia from oxygen mismatch. Patient was started on heparin drip 6. Chronic kidney disease stage IV ? Baseline creatinine has been fluctuating between 2.5-3. monitoring with daily BMPs 7. Anemia ? Secondary to chronic disorder monitoring H&H and transfuse if patient becomes symptomatic or hemoglobin falls below 7 8. Chronic hypoxic respiratory failure ? Patient is on baseline home oxygen. 9. Dyslipidemia ?Zetia 10 mg daily will resume following extubation 10. Tobacco dependence ? Plan is to counseled on cessation once extubated 11. BPH with lower urinary obstructive symptoms - Patient treated with tamsulosin 12. DVT prophylaxis ? SC heparin Charges/Coding Visit Charges Inpatient E&M: 43356 Subs Hosp L2
--- NOTE | 2025-05-17 09:08 | CASEMGMT ---
Addendum entered by Kalee Chirinos 05/17/25 16:46: Social Work- GURPREET collaborated with hospice nurse. Plan is for [facility] at d/c. At this time, [facility] does not have an RN until 7PM; pt will transport at that time. Physician updated. JENNIFER Rodriguez Addendum entered by Kalee Chirinos 05/17/25 11:16: GURPREET spoke with Leanne who reports that first available time is 3:30. GURPREET updated pt family, who reports that they had just received a phone call for consult time. Pt family reports no needs at this time. JENNIFER Rodriguez Original Note: Social Work- GURPREET confirmed with pt & dtr that [facility] was provider of choice. GURPREET completed hospice referral; GURPREET faxed documentation. GURPREET updated pt & dtr. GURPREET remains available to follow. JENNIFER Rodriguez
[2025-05-17 11:20] VITALS: PULSE 67; RESP 16
--- NOTE | 2025-05-17 16:15 | DS.PCM_ITS ---
Providers Date of Admission: 05/13/25 Date of Discharge: 05/17/25 Primary Care Physician: Ryley Montenegro MD Consultations 05/13/25 18:42 Consult: Cardiology Routine Consulting Provider: Breezy Campbell Reason for Consult: Resp failure, HF Exac, EKG changes/Elevated trop (chronic) EMERGENT Consult: No Notified: Yes Date Notified: 05/14/25 Time Notified: 11:48 Method of Notification: Text Consult: Automotive Brake Specialist / Pulmonary Medicine Routine Consulting Provider: Intensivists/Pulmonary Med Reason for Consult: Resp failure, HF Exac, ? DKA (eval ongoing), ? COPD Exac EMERGENT Consult: No Notified: Yes Date Notified: 05/13/25 Time Notified: 16:01 Method of Notification: Text 05/17/25 08:37 Consult: Hospice / Palliative Care Routine Consulting Provider: [facility] Reason for Consult: terminal extubation; respiratry failure EMERGENT Consult: Yes MD Notified: Yes Date Notified: 05/17/25 Time Notified: 08:37 Method of Notification: Verbal Reason For Visit: RESP FAILURE, HF EXAC, HYPERGLYCEMIA Diagnosis Discharge Diagnosis (1) Acute on chronic HFrEF (heart failure with reduced ejection fraction): Status: Resolved Code(s): I50.23 - Acute on chronic systolic (congestive) heart failure Plan Patient is an 79-year-old gentleman with history of chronic hypoxic respiratory failure who presented with progressive shortness of breath. . An assessment of acute hypoxic respiratory failure made admitted to a monitored bed for further management. Patient was initially managed with noninvasive ventilation BiPAP however respiratory status deteriorated resulting in patient being intubated 1. Acute hypoxic respiratory failure ? Secondary to flash acute on chronic congestive heart failure as well as COPD with acute exacerbation. Patient was initially managed on noninvasive ventilation via BiPAP admitted to the intensive care unit for further management. Respiratory status deteriorated resulting in patient being intubated. Consult subsequently placed to sports book writer/chain puller for vent management 05/15/2025; patient currently undergoing weaning trial ? 05/16/2025; patient continues to fail weaning trial. Per nursing staff patient has apneic episodes and plan is to obtain CT of the head ? 05/17/2025; patient was terminally weaned off the vent after discussion with family. Transferred from the intensive care unit to [facility]. ? Patient was discharged to hospice in the medical facility 2. Acute on chronic congestive heart failure with reduced ejection fraction 2D echo from 09/13/2024 demonstrate left ventricular systolic function is normal. The left ventricular ejection fraction is 60 %. There is moderate to severe mitral annular calcification. Pulmonary artery systolic pressure is 51 mmHg.Patient was managed with diuretic therapy in addition to patient being intubated ? 05/15/2025; patient responding to diuretic therapy ? 05/16/2025 2D echo obtain on 05/14/2025 Mild concentric left ventricular hypertrophy. Generalized LV hypokinesis. Severe inferior and septal hypokinesis. Estimated LVEF 30%. At least stage I diastolic dysfunction. Severe mitral annular calcification. Patient continues to diurese well and is net negative fluid balance of 4 L over the past 24 3. Hyponatremia ? Secondary to hypervolemic hyponatremia do expect improvement with diuresis ? 05/15/2025; sodium level up to 139 with diuresis 4. Diabetes mellitus type 2 with hyperosmolar nonketotic state ? Patient had acidosis with mild DKA however this could also be explained with patient chronic kidney disease.Patient started on insulin drip ? 05/15/2025; patient glucose levels remain elevated we will continue with adjustments of insulin drip 5. Elevated troponin ? Suspected to be secondary to acute myocardial ischemia from demand ischemia from oxygen mismatch. Patient was started on heparin drip 6. Chronic kidney disease stage IV ? Baseline creatinine has been fluctuating between 2.5-3. monitoring with daily BMPs 7. Anemia ? Secondary to chronic disorder monitoring H&H and transfuse if patient becomes symptomatic or hemoglobin falls below 7 8. Chronic hypoxic respiratory failure ? Patient is on baseline home oxygen. 9. Dyslipidemia ?Zetia 10 mg daily will resume following extubation 10. Tobacco dependence ? Plan is to counseled on cessation once extubated 11. BPH with lower urinary obstructive symptoms - Patient treated with tamsulosin 12. DVT prophylaxis ? SC heparin Medications at Discharge Home Medications albuterol sulfate 2.5 mg/3 mL (0.083 %) solution for nebulization 2.5 mg (3 mL) inhalation Q2H PRN PRN SOB &/OR WHEEZING 30 days #180 mL 04/22/25 Hospital Course Summary of Care Provided Minutes Spent on Discharge: 35 Physical Exam Narrative GENERAL: Lethargic HEENT: Atraumatic; normocephalic EYES; Anicteric, Normal Conjunctiva NECK; supple, normal thyroid, RESPIRATORY: Diminished to auscultation CARDIOVASCULAR: Regular S1 S2, GI: soft, normoactive bowel sounds, : No Renal angle tenderness; EXTREMITIES: No edema, no clubbing, MUSCULOSKELETAL: no muscle wasting NEURO: no lateralizing signs. SKIN: No Rash PSYCH; unable to assess Weight / BMI Weight Weight: 58.7 kg Body Mass Index (BMI) 19.5 ABG / Lab / Microbiology Data 05/16/25 04:25 05/16/25 04:25 Microbiology: Microbiology 05/13/25 16:40 Sputum, Induced/Lukens Gram Stain - Final 05/13/25 16:40 Sputum, Induced/Lukens Respiratory Culture - Final Mixed normal respiratory kyler. No Streptococcus pneumoniae, beta-hemolytic Streptococcus or Staphylococcus aureus isolated. 05/13/25 18:24 Urine, Clean Catch Urine Culture - Final Culture exhibits no growth. 05/13/25 13:47 Blood Culture (Wb) - Left Forearm Blood Culture - Preliminary No growth in 48 hours. 05/13/25 13:47 Blood Culture (Wb) - Left Wrist Blood Culture - Preliminary No growth in 48 hours. 05/13/25 16:40 Mucosa - Nasopharyngeal Respiratory Panel (PCR) - Final 05/13/25 13:47 Mucosa - Nose SARS-CoV-2, Influenza & RSV (PCR) - Final D/C Instructions DC O2, CPAP, BIPAP Needs Home O2 Discharge instructions: No Meaningful Use Info Meaningful Use Meaningful Use Diagnoses (Choose all that apply): CHF CHF PASCALE/ARB ordered at discharge?: No Reason PASCALE/ARB not ordered?: Not indicated (Patient was discharged to hospice) Documented LVEF (%): 30 Discharge Plan Admission Admit Date/Time: 05/13/25 15:51 Attending Provider: Tj Bhatt Primary Care Provider: Ryley Montenegro Consulting Providers: Lucas Limon; Harinder Gill; Moe Ortiz; Landry Fagan; Tj Vera; Terry Davis; Hadley Bermeo; Nina Lee; Duncan Hussein; Brock Jeffries; Arnulfo Adame; Bhakti Melara; Charlie Garcia; Chuck,Isabela; Demetri,Adarsh; Nico Storey; Lucinda,Mick; Dillon Moses; Favian Moreno; Chloe Gallardo; Jose Rafael Dailey; Nate Forbes; Donte Nolen; Dyana Hwang; Breezy Campbell; Tj Hernandez; Natasha Cabrera; Karoline Lundy; Gi Duvall; Ladonna Rodriguez CHEESEMAKING LABORER; Adenike Alvarado Discharge Orders/Prescriptions Prescriptions: Continued albuterol sulfate 2.5 mg /3 mL (0.083 %) Solution For Nebulization 2.5 mg inhalation Q2H PRN PRN (Reason: SOB &/OR WHEEZING) 30 Days Qty: 180 0RF Discontinued ezetimibe 10 mg tablet 10 mg PO DAILY tamsulosin [Flomax] 0.4 mg Capsule 0.4 mg PO DAILY insulin lispro 100 unit/mL Insulin Pen 0 unit SUBCUT TID insulin glargine [Lantus Solostar U-100 Insulin] 100 unit/mL (3 mL) Insulin Pen 15 unit SUBCUT QPM hydralazine 50 mg tablet 50 mg PO Q8H albuterol sulfate 90 mcg/actuation HFA aerosol inhaler 2 puff INHALATION Q6H PRN PRN (Reason: wheezing) (DME) Contour Next Test Strips Strip MISCELLANEOUS 4X/DAY furosemide 40 mg Tablet 40 mg PO BIDLX Qty: 60 0RF carvedilol 25 mg Tablet 25 mg PO BIDCM Qty: 60 0RF isosorbide mononitrate 30 mg Tablet Extended Release 24 Hr 30 mg PO DAILY Qty: 30 0RF ProAir RespiClick 90 mcg/actuation aerosol powdr breath activated 2 inh inhalation Q6H PRN (Reason: shortness of breath or wheezing) Qty: 1 0RF (DME) nebulizer and compressor Device See Rx Instructions .Route Qty: 1 0RF Rx Instructions: As directed finasteride 5 mg tablet 5 mg PO DAILY prednisone 20 mg tablet 40 mg PO DAILY Qty: 10 0RF Referrals / Follow Up: Ryley Montenegro MD [Primary Care Provider] - Disposition Disposition (needs filled in before D/C Order can be placed): Hospice in Medical Facility Charges/Coding Visit Charges Inpatient E&M: 30765 Disch Hosp >30min
--- NOTE | 2025-05-17 17:44 | NURSING ---
report called to Torito at inpatient hospice.
[2025-05-17 17:50] VITALS: BP 161/65; PULSE 75; RESP 24
== END 2025-05-17 18:58 | disposition hospice, inpatient (51) | DRG 208 ==
LOC: ED 16:05 → ICU 16:32 → MS3 05-16 17:24
PROVIDERS: Internal Medicine Critical Care Medicine; Admitting Provider Family Medicine; Emergency Provider Emergency Medicine; PCP Family Medicine; Visit Provider Internal Medicine
DX: J96.01 Acute respiratory failure with hypoxia (principal); I50.23 Acute on chronic systolic (congestive) heart failure; E11.00 Type 2 diabetes mellitus with hyperosmolarity without nonketotic hyperglycemic-hyperosmolar coma (NKHHC); I24.89 Other forms of acute ischemic heart disease; E87.1 Hypo-osmolality and hyponatremia; N18.4 Chronic kidney disease, stage 4 (severe); J44.1 Chronic obstructive pulmonary disease with (acute) exacerbation; I13.0 Hypertensive heart and chronic kidney disease with heart failure and stage 1 through stage 4 chronic kidney disease, or unspecified chronic kidney disease; Z66 Do not resuscitate; E11.22 Type 2 diabetes mellitus with diabetic chronic kidney disease; I70.0 Atherosclerosis of aorta; I34.81 Nonrheumatic mitral (valve) annulus calcification; F17.210 Nicotine dependence, cigarettes, uncomplicated; I25.10 Atherosclerotic heart disease of native coronary artery without angina pectoris; E78.5 Hyperlipidemia, unspecified; I25.2 Old myocardial infarction; N40.1 Benign prostatic hyperplasia with lower urinary tract symptoms; Z79.51 Long term (current) use of inhaled steroids; Z86.16 Personal history of COVID-19
CPT/HCPCS: 31500; 31720; 36600; 71045; 80048; 80053; 80061; 82010; 82140; 82550; 82803; 82947; 82962; 83605; 83690; 83735; 83880; 83930; 84100; 84145; 84443; 84478; 84484; 85025; 85027; 85379; 85610; 85730; 87040; 87070; 87086; 87205; 87631; 87633; 93005; 93308; 93970; 94002; 94003; 94640; 94660; 97162; 97166; 97802; 97803; 99252; 99285; A4216; G0463; J1938